=== PATIENT | male | born 1995 | race Caucasian/White ===

== ENCOUNTER 2021-06-16 17:27 | Emergency (ER) | payer OTHER, SELFPAY ==
[2021-06-16 17:36] VITALS: BP 128/67; PULSE 96; RESP 20; TEMP 36.8; O2SAT 99
[2021-06-16 20:15] VITALS: BP 113/60; PULSE 82; RESP 18; O2SAT 99
--- NOTE | 2021-06-16 20:22 | PC.NURSE ---
no response from [facility]
--- NOTE | 2021-06-16 20:55 | PC.NURSE ---
2nd call to waiting room. No answer.
== END 2021-06-17 04:42 | disposition left against medical advice (07) ==
LOC: ANHED 20:59
PROVIDERS: PCP Internal Medicine
DX: S01.21XA Laceration without foreign body of nose, initial encounter (principal)
CPT/HCPCS: 99199

== ENCOUNTER 2023-08-20 15:31 | Outpatient (CLI) | payer OTHER, MEDICAID, SELFPAY ==
[2023-08-20 16:21] LABS: Immunoglobulin G 366 mg/dL (700-1600)
== END 2023-08-20 15:32 | disposition home or self-care (01) ==
PROVIDERS: PCP Family Medicine
DX: D80.1 Nonfamilial hypogammaglobulinemia (principal); D47.Z1 Post-transplant lymphoproliferative disorder (PTLD); T86.49 Other complications of liver transplant
CPT/HCPCS: 36415; 82784

== ENCOUNTER 2023-09-10 10:48 | Outpatient (CLI) | payer OTHER, MEDICAID, SELFPAY ==
[2023-09-14 02:29] LABS: CMV DNA Quant PCR IU/mL Not Detected; Cytomegalovirus DNA Quant PCR Not Detected log IU/mL; Cytomegalovirus DNA Source Serum
== END 2023-09-10 10:49 | disposition home or self-care (01) ==
PROVIDERS: PCP Family Medicine
DX: B25.9 Cytomegaloviral disease, unspecified (principal)
CPT/HCPCS: 36415; 87497

== ENCOUNTER 2023-09-18 09:13 | Outpatient (RCR) | payer OTHER, MEDICAID, SELFPAY ==
[2023-07-17 07:52] LABS: Basophils Absolute Auto 0.1 K/mm3 (0.0-0.1); Basophils Percent Auto 0.5 % (0.2-1.2); Eosinophils Absolute Auto 0.6 K/mm3 (0-0.3); Eosinophils Percent Auto 5.9 % (0-4.4); Hematocrit 31.9 % (42.0-52.0); Hemoglobin 11.6 g/dL (14.0-18.0); Immature Granulocyte Absolute 0.03 K/mm3 (0.00-0.031); Immature Granulocyte Percent A 0.3 % (0-0.5); Lymphocytes Percent Auto 30.3 % (18.3-44.2); Mean Corpuscular HGB Conc 36.4 g/dl (32-36); Mean Corpuscular Hemoglobin 36.6 pg (26-34); Mean Corpuscular Volume 100.6 fl (80-100); Mean Platelet Volume 11.4 fl (7.4-10.4); Monocytes Absolute Auto 1.9 K/mm3 (0.1-0.6); Monocytes Percent Auto 18.4 % (2.6-8.5); Neutrophils Absolute Auto 4.6 K/mm3 (1.3-6.7); Neutrophils Percent Auto 44.6 % (45.5-73.1); Platelet Count Result 205 k/mm3 (150-375); Red Blood Count 3.17 M/mm3 (4.6-6.20); Red Cell Distribution Width 19.2 % (11.5-14.5); White Blood Count 10.2 K/mm3 (4.5-10.0)
[2023-07-17 07:55] LABS: Alanine Aminotransferase 60 U/L (6-50); Albumin Level 2.6 g/dL (3.5-5.1); Alkaline Phosphatase 223 U/L (38-126); Anion Gap 4 mmol/L (8-16); Aspartate Amino Transferase 89 U/L (17-59); Blood Urea Nitrogen 10 mg/dL (9-20); Carbon Dioxide 22 mmol/L (22-30); Chloride 113 mmol/L (98-107); Estimated Glomerular Filt Rate > 60; Glucose 97 mg/dL (65-110); Potassium 3.9 mmol/L (3.4-5.0); Sodium 139 mmol/L (137-145)
[2023-07-21 00:57] LABS: CMV DNA Quant PCR IU/mL 2499 IU/mL; Cytomegalovirus DNA Source Serum
[2023-07-21 15:03] LABS: GGT 41 U/L (3-90)
[2023-07-21 15:35] LABS: Tacrolimus Prograf 4.3 mcg/L
[2023-09-18 10:25] LABS: Basophils Absolute Auto 0.1 K/mm3 (0.0-0.1); Basophils Percent Auto 1.3 % (0.2-1.2); Eosinophils Absolute Auto 0.1 K/mm3 (0-0.3); Eosinophils Percent Auto 0.6 % (0-4.4); Hematocrit 36.9 % (42.0-52.0); Hemoglobin 13.2 g/dL (14.0-18.0); Immature Granulocyte Absolute 0.03 K/mm3 (0.00-0.031); Immature Granulocyte Percent A 0.4 % (0-0.5); Lymphocytes Absolute Auto 3.16 K/mm3 (0.9-3.2); Lymphocytes Percent Auto 40.5 % (18.3-44.2); Mean Corpuscular HGB Conc 35.8 g/dl (32-36); Mean Corpuscular Hemoglobin 39.6 pg (26-34); Mean Corpuscular Volume 110.8 fl (80-100); Mean Platelet Volume 11.2 fl (7.4-10.4); Monocytes Absolute Auto 0.8 K/mm3 (0.1-0.6); Monocytes Percent Auto 10.6 % (2.6-8.5); Neutrophils Absolute Auto 3.6 K/mm3 (1.3-6.7); Neutrophils Percent Auto 46.6 % (45.5-73.1); Platelet Count Result 296 k/mm3 (150-375); Red Blood Count 3.33 M/mm3 (4.6-6.20); Red Cell Distribution Width 19.6 % (11.5-14.5); White Blood Count 7.8 K/mm3 (4.5-10.0)
[2023-09-18 10:34] LABS: Alanine Aminotransferase 98 U/L (6-50); Albumin Level 3.4 g/dL (3.5-5.1); Alkaline Phosphatase 164 U/L (38-126); Anion Gap 9 mmol/L (8-16); Aspartate Amino Transferase 121 U/L (17-59); Bilirubin,Total 3.6 mg/dL (0.2-1.3); Blood Urea Nitrogen 23 mg/dL (9-20); Calcium 8.5 mg/dL (8.4-10.2); Carbon Dioxide 19 mmol/L (22-30); Chloride 112 mmol/L (98-107); Estimated Glomerular Filt Rate > 60; Glucose 96 mg/dL (65-110); Potassium 4.8 mmol/L (3.4-5.0); Sodium 140 mmol/L (137-145)
[2023-09-18 10:45] LABS: Anisocytosis 1+ (NORMAL); Platelet Estimate Adequate (Adequate)
[2023-09-18 10:46] LABS: Macrocytosis 1+ (NORMAL); Schistocytes None Seen (NORMAL)
[2023-09-21 15:01] LABS: Tacrolimus Prograf 11.5 mcg/L
[2023-09-22 16:11] LABS: GGT 71 U/L (3-90)
== END 2023-10-15 23:59 | disposition home or self-care (01) ==
LOC: ANHLAB 09:13
PROVIDERS: Internal Medicine; PCP Family Medicine; Visit Provider Internal Medicine Gastroenterology
DX: R74.01 Elevation of levels of liver transaminase levels (principal); Z94.4 Liver transplant status; B25.9 Cytomegaloviral disease, unspecified
CPT/HCPCS: 36415; 80053; 80197; 82977; 85025; 87497

== ENCOUNTER 2023-09-18 09:14 | Outpatient (CLI) | payer OTHER, MEDICAID, SELFPAY ==
[2023-09-21 07:36] LABS: CMV DNA Quant PCR IU/mL Not Detected; Cytomegalovirus DNA Quant PCR Not Detected log IU/mL; Cytomegalovirus DNA Source Serum
== END 2023-09-18 09:15 | disposition home or self-care (01) ==
PROVIDERS: PCP Family Medicine; Visit Provider Internal Medicine
DX: B25.9 Cytomegaloviral disease, unspecified (principal)
CPT/HCPCS: 36415; 80053; 80197; 82977; 85025; 87497

== ENCOUNTER 2023-09-28 09:11 | Emergency (ER) | payer OTHER, MEDICAID, SELFPAY ==
--- NOTE | ~2023-09-28 | XR_ITS ---
XR chest 2V 09/28/2023 09:36 Indication: Cough. Back pain. Chest pain. Procedure: 2 view chest Comparison: 07/15/2016 Findings: Cardiomegaly. Bibasilar airspace disease, compatible with pneumonia. Small right pleural ef fusion. No pneumothorax. No acute osseous abnormality. There are surgical changes of the upper abdome n. Impression: 1: Bibasilar airspace disease, consistent with pneumonia. 2: Small right pleural effusion. 3: Cardiomegaly. Reviewed, dictated and finalized at location [facility] Impression: 1: Bibasilar airspace disease, consistent with pneumonia. 2: Small right pleural effusion. 3: Cardiomegaly.
[2023-09-28 09:18] VITALS: BP 125/67; PULSE 113; RESP 20; TEMP 37.6; O2SAT 97
[2023-09-28 10:08] LABS: Influenza A QL RT-PCR Negative (Negative); Influenza B QL RT-PCR Negative (Negative); RSV RNA, RT-PCR Negative (Negative); SARS-CoV-2 RNA PCR Negative (Negative)
[2023-09-28 11:38] VITALS: BP 124/76; PULSE 102; RESP 16; TEMP 37; O2SAT 98
--- NOTE | 2023-09-28 12:12 | ED.GENADULT ---
HPI - General Adult General Chief complaint: Upper Respiratory Infection Stated complaint: low back pain/side pain Time Seen by Provider: 09/28/23 11:23 History of Present Illness HPI narrative: 28-year-old male presents to the emergency department for evaluation of a increased cough since Wednesday. Patient does have a history of a splenectomy and a liver transplant and follows up with [facility]. Related Data Home Medications Medication Instructions Recorded Confirmed tacrolimus 0.5 mg capsule, 0.5 mg PO DAILY 05/31/20 04/13/23 immediate-release valacyclovir 500 mg tablet 1,000 mg PO Q12H 04/09/23 04/13/23 IgG 30 gram/300 mL (10 subcut MONTHLY 04/13/23 04/13/23 %)-hyaluronidase,recomb. subcutaneous solution (HyQvia) ursodiol 300 mg capsule 600 mg PO DAILY 04/13/23 04/13/23 Allergies Allergy/AdvReac Type Severity Reaction Status Date / Time No Known Allergies Allergy Verified 09/28/23 11:43 Review of Systems Review of Systems: All systems reviewed & are unremarkable except as noted in HPI and below PMFSH Family History Family History Mother Carcinoma of colon Social History Social History Smoking packs per day: 0.2 Smoking cigarettes per day: 4.0 Years smoked: 2 Smoking pack-years: 0.40 Smoking status: Former smoker Tobacco type: cigarettes Smoking end date: 11/01/10 Alcohol intake: current Drinks per week: 3 Alcohol use details: social Substance use: never Substance use type: does not use Gender identity (if verbalized by the patient): Male Exam Narrative: APPEARANCE: Well appearing, no pain, no distress, well-nourished. HEAD: normocephalic, atraumatic. EYES: PERRLA/EOMI, conjunctivae clear. NOSE: Normal no drainage EARS:TMS clear with good light reflex. THROAT: Pharynx clear, no exudate. NECK: Supple. No adenopathy, no masses. RESPIRATORY: Airway patent, respirations nonlabored. Clear to auscultation bilaterally, no rales, rhonchi, wheezing. CARDIOVASCULAR: Regular rate and rhythm without murmurs rubs or gallops. ABDOMINAL: Soft, nontender, nondistended, normal bowel sounds MUSCULOSKELETAL: Moves all extremities. Strength/ROM intact, No edema, No calf tenderness. NEURO: Alert. Cranial nerves II through XII intact. grossly intact SKIN: Warm, dry. Normal Color Course Course Emergency Course: 28-year-old male presenting emergency department for evaluation of 2 days of cough. X-ray was concerning for pneumonia. Patient was negative for influenza RSV and COVID. Patient's vital signs were well-appearing patient was in no distress. Patient was started on antibiotics in the ED discharged home on antibiotics. All questions and concerns were addressed and patient was educated on reasons to return to the emergency department. Vital Signs Vital signs: Vital Signs Temperature 99.6 F 09/28/23 09:18 Pulse Rate 113 H 09/28/23 09:18 Respiratory Rate 20 09/28/23 09:18 Blood Pressure 125/67 09/28/23 09:18 Pulse Oximetry 97 09/28/23 09:18 Oxygen Delivery Room Air 09/28/23 09:18 Temperature 98.6 F 09/28/23 11:38 Pulse Rate 102 H 09/28/23 11:38 Respiratory Rate 16 09/28/23 11:38 Blood Pressure 124/76 09/28/23 11:38 Pulse Oximetry 98 09/28/23 11:38 Oxygen Delivery Room Air 09/28/23 09:18 Medical Decision Making Differential Diagnosis Differential Diagnosis: Pneumonia, influenza, COVID, pneumothorax Vital Signs Vital Signs: Vital Signs Temperature 99.6 F 09/28/23 09:18 Pulse Rate 113 H 09/28/23 09:18 Respiratory Rate 20 09/28/23 09:18 Blood Pressure 125/67 09/28/23 09:18 Pulse Oximetry 97 09/28/23 09:18 Oxygen Delivery Room Air 09/28/23 09:18 Temperature 98.6 F 09/28/23 11:38 Pulse Rate 102 H 09/28/23 11:38 Respiratory Rate 16 09/28/23 11:38 Blood Pressure 124/76 09/28/23 11:3
[2023-09-28] MEDS: AMOXICILLIN/CLAVULANATE K 875-125 MG TAB 1 TABLET PO (12:20)
[2023-09-28] MEDS: DOXYCYCLINE HYCLATE 100 MG TABLET PO (12:20)
== END 2023-09-28 12:32 | disposition home or self-care (01) ==
PROVIDERS: Emergency Provider Emergency Medicine; PCP Family Medicine
DX: J18.9 Pneumonia, unspecified organism (principal); Z20.822 Contact with and (suspected) exposure to COVID-19
CPT/HCPCS: 71046; 87637; 99283; A9270

== ENCOUNTER 2023-10-02 07:20 | Outpatient (CLI) | payer OTHER, MEDICAID, SELFPAY ==
[2023-10-02 07:46] LABS: Hematocrit 32.8 % (42.0-52.0); Hemoglobin 12.5 g/dL (14.0-18.0); Mean Corpuscular Hemoglobin 39.3 pg (26-34); Mean Corpuscular Volume 103.1 fl (80-100); Mean Platelet Volume 9.9 fl (7.4-10.4); Platelet Count Result 218 k/mm3 (150-375); Red Blood Count 3.18 M/mm3 (4.6-6.20); White Blood Count 19.7 K/mm3 (4.5-10.0)
[2023-10-02 07:50] LABS: Mean Corpuscular HGB Conc 38.1 g/dl (32-36)
[2023-10-02 07:55] LABS: Alanine Aminotransferase 34 U/L (6-50); Albumin Level 2.9 g/dL (3.5-5.1); Alkaline Phosphatase 166 U/L (38-126); Anion Gap 11 mmol/L (8-16); Aspartate Amino Transferase 39 U/L (17-59); Bilirubin,Total 5.4 mg/dL (0.2-1.3); Blood Urea Nitrogen 25 mg/dL (9-20); Calcium 8.4 mg/dL (8.4-10.2); Carbon Dioxide 17 mmol/L (22-30); Chloride 105 mmol/L (98-107); Estimated Glomerular Filt Rate > 60; Glucose 107 mg/dL (65-110); Potassium 4.3 mmol/L (3.4-5.0); Sodium 133 mmol/L (137-145)
[2023-10-05 15:12] LABS: Tacrolimus Prograf 7.6 mcg/L
[2023-10-06 07:06] LABS: GGT 49 U/L (3-90)
[2023-10-08 09:40] LABS: CMV DNA Quant PCR IU/mL <2.30
[2023-10-08 09:41] LABS: Cytomegalovirus DNA Quant PCR <200
[2023-10-08 09:43] LABS: Cytomegalovirus DNA Source Serum
== END 2023-10-02 07:21 | disposition home or self-care (01) ==
PROVIDERS: PCP Family Medicine; Visit Provider Internal Medicine Gastroenterology
DX: Z94.4 Liver transplant status (principal); B25.9 Cytomegaloviral disease, unspecified
CPT/HCPCS: 36415; 80053; 80197; 82977; 85027; 87497

== ENCOUNTER 2023-10-21 07:43 | Outpatient (RCR) | payer OTHER, MEDICAID, SELFPAY ==
[2023-07-31 08:03] LABS: Hematocrit 32.9 % (42.0-52.0); Hemoglobin 11.7 g/dL (14.0-18.0); Mean Corpuscular HGB Conc 35.6 g/dl (32-36); Mean Corpuscular Hemoglobin 36.8 pg (26-34); Mean Corpuscular Volume 103.5 fl (80-100); Mean Platelet Volume 11.3 fl (7.4-10.4); Platelet Count Result 223 k/mm3 (150-375); Red Blood Count 3.18 M/mm3 (4.6-6.20); Red Cell Distribution Width 20.7 % (11.5-14.5)
[2023-07-31 08:26] LABS: Alanine Aminotransferase 76 U/L (6-50); Albumin Level 2.9 g/dL (3.5-5.1); Alkaline Phosphatase 220 U/L (38-126); Anion Gap 4 mmol/L (8-16); Aspartate Amino Transferase 111 U/L (17-59); Bilirubin,Total 4.3 mg/dL (0.2-1.3); Blood Urea Nitrogen 9 mg/dL (9-20); Calcium 7.7 mg/dL (8.4-10.2); Carbon Dioxide 22 mmol/L (22-30); Chloride 109 mmol/L (98-107); Estimated Glomerular Filt Rate > 60; Glucose 93 mg/dL (65-110); Potassium 3.8 mmol/L (3.4-5.0); Sodium 135 mmol/L (137-145)
[2023-08-03 16:09] LABS: Tacrolimus Prograf 3.4 mcg/L
[2023-08-04 14:40] LABS: GGT 55 U/L (3-90)
[2023-10-21 08:29] LABS: Basophils Absolute Auto 0.1 K/mm3 (0.0-0.1); Basophils Percent Auto 1.7 % (0.2-1.2); Eosinophils Percent Auto 0.6 % (0-4.4); Hematocrit 27.3 % (42.0-52.0); Hemoglobin 9.4 g/dL (14.0-18.0); Immature Granulocyte Absolute 0.04 K/mm3 (0.00-0.031); Immature Granulocyte Percent A 0.7 % (0-0.5); Lymphocytes Absolute Auto 2.19 K/mm3 (0.9-3.2); Lymphocytes Percent Auto 40.6 % (18.3-44.2); Mean Corpuscular HGB Conc 34.4 g/dl (32-36); Mean Corpuscular Hemoglobin 38.7 pg (26-34); Mean Corpuscular Volume 112.3 fl (80-100); Mean Platelet Volume 10.3 fl (7.4-10.4); Monocytes Absolute Auto 1.5 K/mm3 (0.1-0.6); Neutrophils Absolute Auto 1.6 K/mm3 (1.3-6.7); Neutrophils Percent Auto 29.4 % (45.5-73.1); Platelet Count Result 249 k/mm3 (150-375); Red Blood Count 2.43 M/mm3 (4.6-6.20); White Blood Count 5.4 K/mm3 (4.5-10.0)
[2023-10-21 08:42] LABS: Alanine Aminotransferase 43 U/L (6-50); Albumin Level 2.5 g/dL (3.5-5.1); Alkaline Phosphatase 243 U/L (38-126); Anion Gap 3 mmol/L (8-16); Aspartate Amino Transferase 62 U/L (17-59); Bilirubin,Total 2.4 mg/dL (0.2-1.3); Blood Urea Nitrogen 13 mg/dL (9-20); Calcium 7.8 mg/dL (8.4-10.2); Carbon Dioxide 23 mmol/L (22-30); Chloride 110 mmol/L (98-107); Estimated Glomerular Filt Rate > 60; Glucose 95 mg/dL (65-110); Potassium 4.2 mmol/L (3.4-5.0); Sodium 136 mmol/L (137-145)
[2023-10-21 09:52] LABS: Hypochromasia 2+ (NORMAL); Platelet Estimate Adequate (Adequate)
[2023-10-21 09:53] LABS: Anisocytosis 1+ (NORMAL); Macrocytosis 1+ (NORMAL); Schistocytes None Seen (NORMAL); Target Cells 1+ (NORMAL)
[2023-10-23 23:25] LABS: Tacrolimus Prograf 5.2 mcg/L
[2023-10-26 18:56] LABS: CMV DNA Quant PCR IU/mL 507 IU/mL; Cytomegalovirus DNA Quant PCR 2.71 log IU/mL; Cytomegalovirus DNA Source Serum
[2023-10-26 22:54] LABS: GGT 49 U/L (3-90)
== END 2023-10-29 23:59 | disposition home or self-care (01) ==
LOC: ANHLAB 07:43
PROVIDERS: PCP Family Medicine; Visit Provider Internal Medicine Gastroenterology
DX: Z51.81 Encounter for therapeutic drug level monitoring (principal); Z94.4 Liver transplant status; Z79.899 Other long term (current) drug therapy
CPT/HCPCS: 36415; 80053; 80197; 82977; 85025; 85027; 87497

== ENCOUNTER 2023-11-27 07:26 | Outpatient (CLI) | payer OTHER, MEDICAID, SELFPAY ==
[2023-11-27 07:47] LABS: Basophils Absolute Auto 0.1 K/mm3 (0.0-0.1); Eosinophils Percent Auto 0.4 % (0-4.4); Hemoglobin 12.3 g/dL (14.0-18.0); Immature Granulocyte Absolute 0.87 K/mm3 (0.00-0.031); Immature Granulocyte Percent A 7.7 % (0-0.5); Lymphocytes Absolute Auto 1.44 K/mm3 (0.9-3.2); Lymphocytes Percent Auto 12.7 % (18.3-44.2); Mean Corpuscular HGB Conc 36.2 g/dl (32-36); Mean Corpuscular Hemoglobin 38.6 pg (26-34); Mean Corpuscular Volume 106.6 fl (80-100); Mean Platelet Volume 9.8 fl (7.4-10.4); Monocytes Absolute Auto 2.4 K/mm3 (0.1-0.6); Monocytes Percent Auto 21.2 % (2.6-8.5); Neutrophils Absolute Auto 6.5 K/mm3 (1.3-6.7); Platelet Count Result 216 k/mm3 (150-375); Red Blood Count 3.19 M/mm3 (4.6-6.20); Red Cell Distribution Width 15.8 % (11.5-14.5); White Blood Count 11.3 K/mm3 (4.5-10.0)
[2023-11-27 07:57] LABS: Alanine Aminotransferase 25 U/L (6-50); Albumin Level 2.5 g/dL (3.5-5.1); Alkaline Phosphatase 168 U/L (38-126); Anion Gap 4 mmol/L (8-16); Aspartate Amino Transferase 53 U/L (17-59); Bilirubin,Total 1.9 mg/dL (0.2-1.3); Blood Urea Nitrogen 11 mg/dL (9-20); Calcium 7.6 mg/dL (8.4-10.2); Carbon Dioxide 23 mmol/L (22-30); Chloride 108 mmol/L (98-107); Estimated Glomerular Filt Rate > 60; Glucose 117 mg/dL (65-110); Potassium 3.9 mmol/L (3.4-5.0); Sodium 135 mmol/L (137-145)
[2023-11-30 16:19] LABS: CMV DNA Quant PCR IU/mL 363 IU/mL; Cytomegalovirus DNA Quant PCR 2.56 log IU/mL; Cytomegalovirus DNA Source Serum
[2023-11-30 20:29] LABS: GGT 51 U/L (3-90)
[2023-11-30 20:54] LABS: Tacrolimus Prograf 4.9 mcg/L
== END 2023-11-27 07:27 | disposition home or self-care (01) ==
LOC: ANHLAB 07:30
PROVIDERS: PCP Family Medicine; Visit Provider Internal Medicine Gastroenterology
DX: R74.01 Elevation of levels of liver transaminase levels (principal); B25.8 Other cytomegaloviral diseases; Z94.4 Liver transplant status
CPT/HCPCS: 36415; 80053; 80197; 82977; 85025; 87497

== ENCOUNTER 2024-01-01 07:22 | Outpatient (CLI) | payer OTHER, SELFPAY ==
[2024-01-01 08:17] LABS: Basophils Absolute Auto 0.1 K/mm3 (0.0-0.1); Basophils Percent Auto 2.2 % (0.2-1.2); Eosinophils Percent Auto 0.6 % (0-4.4); Hematocrit 38.5 % (42.0-52.0); Hemoglobin 13.6 g/dL (14.0-18.0); Immature Granulocyte Absolute 0.36 K/mm3 (0.00-0.031); Immature Granulocyte Percent A 7.2 % (0-0.5); Lymphocytes Absolute Auto 1.44 K/mm3 (0.9-3.2); Lymphocytes Percent Auto 28.8 % (18.3-44.2); Mean Corpuscular HGB Conc 35.3 g/dl (32-36); Mean Corpuscular Hemoglobin 37.9 pg (26-34); Mean Corpuscular Volume 107.2 fl (80-100); Mean Platelet Volume 10.4 fl (7.4-10.4); Monocytes Absolute Auto 0.7 K/mm3 (0.1-0.6); Monocytes Percent Auto 14.2 % (2.6-8.5); Neutrophils Absolute Auto 2.4 K/mm3 (1.3-6.7); Platelet Count Result 244 k/mm3 (150-375); Red Blood Count 3.59 M/mm3 (4.6-6.20); Red Cell Distribution Width 14.8 % (11.5-14.5)
[2024-01-01 08:31] LABS: Alanine Aminotransferase 36 U/L (6-50); Albumin Level 3.2 g/dL (3.5-5.1); Alkaline Phosphatase 197 U/L (38-126); Anion Gap 8 mmol/L (8-16); Aspartate Amino Transferase 59 U/L (17-59); Bilirubin,Total 1.3 mg/dL (0.2-1.3); Blood Urea Nitrogen 20 mg/dL (9-20); Calcium 8.7 mg/dL (8.4-10.2); Carbon Dioxide 21 mmol/L (22-30); Chloride 109 mmol/L (98-107); Estimated Glomerular Filt Rate > 60; Glucose 120 mg/dL (65-110); Potassium 4.7 mmol/L (3.4-5.0); Sodium 138 mmol/L (137-145)
[2024-01-03 20:34] LABS: CMV DNA Quant PCR IU/mL Not Detected; Cytomegalovirus DNA Quant PCR Not Detected log IU/mL; Cytomegalovirus DNA Source Plasma
[2024-01-04 04:40] LABS: Tacrolimus Prograf 6.2 mcg/L
[2024-01-05 13:19] LABS: GGT 50 U/L (3-90)
== END 2024-01-01 07:23 | disposition home or self-care (01) ==
PROVIDERS: PCP Family Medicine; Visit Provider Internal Medicine Gastroenterology
DX: R74.01 Elevation of levels of liver transaminase levels (principal); B25.8 Other cytomegaloviral diseases; Z94.4 Liver transplant status
CPT/HCPCS: 36415; 80053; 80197; 82977; 85025; 87497

== ENCOUNTER 2024-09-09 07:30 | Outpatient (CLI) | payer OTHER, SELFPAY ==
[2024-09-09 08:13] LABS: Anion Gap 6 mmol/L (4-12); Blood Urea Nitrogen 16 mg/dL (9-20); Calcium 8.7 mg/dL (8.4-10.2); Carbon Dioxide 27 mmol/L (22-30); Chloride 105 mmol/L (98-107); Estimated Glomerular Filt Rate > 60; Glucose 103 mg/dL (65-110); Potassium 4.4 mmol/L (3.4-5.0); Sodium 138 mmol/L (137-145)
== END 2024-09-09 07:31 | disposition home or self-care (01) ==
LOC: ANHLAB 07:36
PROVIDERS: PCP Nurse Practitioner; Visit Provider Internal Medicine Gastroenterology
DX: Z94.4 Liver transplant status (principal)
CPT/HCPCS: 36415; 80048

== ENCOUNTER 2024-10-21 08:11 | Outpatient (CLI) | payer OTHER, SELFPAY ==
--- OUTSIDE RECORDS SUMMARY | 2024-10-28 05:55 | XMS_ITS | Patient Health Summary ---
Author Organization [facility] Address [address] [place] [address] Care Team Providers Care Egg Processor Name Role Phone Vilma Spangler MD Primary Care Provider [phone] Note from [facility],non-owned Affiliates and Associated Physician Practices is amultiple site organization consisting of ambulatory clinics and hospital sitesin [place], [place], [place] and [place]. This disclosure is being madepursuant to the Care Everywhere program and may not contain all information available regarding this patient. Last updated 18.[facility] Allergies No known active allergies Medications * Be aware that medications may not be up to date on this document. Alwaysverify current medications with the patient. * acetaminophen (TYLENOL) 325 MG tablet Take 325 mg by mouth every 4 hours as needed. Maximum allowable Acetaminophen amount = 4 Grams (4000 mg) / 24 hours. * tacrolimus (PROGRAF) 0.5 MG capsule(Started 07/18/2013) Take 1 Cap by mouth 2 times daily. 5 refills left * sulfamethoxazole-trimethoprim (BACTRIM DS; SEPTRA DS) 800-160 MG tablet (Started 07/24/2013) Take 1 Tab by mouth once daily. 5 refills left * predniSONE (DELTASONE) 20 MG tablet(Started 08/08/2013) Take 10 mg by mouth once daily. 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 0 02/17/2010 Immunizations * MENINGOCOCCAL CONJUGATE (MCV4P)(Given 11/11/2012) * PNEUMOCOCCAL PPSV23(Given 11/11/2012) Social History Tobacco Use Types Packs/Day Years Used Date Smoking Tobacco: Never Smokeless Tobacco: Never Alcohol Use Standard Drinks/Week Comments No 0 (1 standard drink = 0.6 oz pur e alcohol) Sex and Gender Information Value Date Recorded Sex Assigned at Not on file Gender Identity Not on file Sexual Orientation Not on file Last Filed Vital Signs Vital Sign Reading Time Taken Comments Blood Pressure 109/46 01/21/2014 10:56 PM CDT Pulse 80 01/21/2014 10:49 PM CDT Temperature 36.9 ??C (98.4 ??F) 01/21/2014 7:52 PM CD T Respiratory Rate 16 01/21/2014 7:52 PM CDT Oxygen Saturation 96% 01/21/2014 10:49 PM CDT Inhaled Oxygen Concentration 100% 12/24/2012 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 Weight 56.7 kg (125 lb) 01/21/2014 7:52 PM CDT Height 170.2 cm (5' 7 ) 01/21/2014 7:52 PM CDT Body Mass Index 19.58 01/21/2014 7:52 PM CDT Procedures * TACROLIMUS LEVEL(Performed 07/28/2014) * CBC W AUTO DIFFERENTIAL(Performed 07/28/2014) * HEPATIC FUNCTION PANEL(Performed 07/28/2014) * BASIC METABOLIC PANEL (CALCIUM TOTAL)(Performed 07/28/2014) * MAGNESIUM BLOOD(Performed 07/28/2014) * TACROLIMUS LEVEL(Performed 06/30/2014) * HEPATIC FUNCTION PANEL(Performed 06/30/2014) * BASIC METABOLIC PANEL (CALCIUM TOTAL)(Performed 06/30/2014) * MAGNESIUM BLOOD(Performed 06/30/2014) * CBC W AUTO DIFFERENTIAL(Performed 06/30/2014) * TACROLIMUS LEVEL(Performed 02/17/2014) * CBC W AUTO DIFFERENTIAL(Performed 02/17/2014) * HEPATIC FUNCTION PANEL(Performed 02/17/2014) * BASIC METABOLIC PANEL (CALCIUM TOTAL)(Performed 02/17/2014) * CYTOMEGALOVIRUS DNA RT-PCR QUANT(Performed 02/17/2014) * CYTOMEGALOVIRUS DNA RT-PCR QUANT(Performed 02/03/2014) * TACROLIMUS LEVEL(Performed 02/03/2014) * XR CHEST 2VW(Performed 01/21/2014) * PT-INR SLH(Performed 01/21/2014) * CULTURE BLOOD(Performed 01/21/2014) * TYPE + SCREEN PANEL(Performed 01/21/2014) * TACROLIMUS LEVEL(Performed 01/21/2014) * CBC W AUTO DIFFERENTIAL(Performed 01/21/2014) * COMPREHENSIVE METABOLIC PANEL(Performed 01/21/2014) * CULTURE BLOOD(Performed 01/21/2014) * CBC W AUTO DIFFERENTIAL(Performed 01/20/2014) * HEPATIC FUNCTION PANEL(Performed 01/20/2014) * BASIC METABOLIC PANEL (CALCIUM TOTAL)(Performed 01/20/2014) * MAGNESIUM BLOOD(Performed 01/20/2014) * HEPATIC FUNCTION PANEL(Performed 01/20/2014) * BASIC METABOLIC PANEL (CALCIUM TOTAL)(Performed 01/20/2014) * MAGNESIUM BLOOD(Performed 01/20/2014) * CYTOMEGALOVIRUS DNA RT-PCR QUANT(Performed 01/20/2014) * CYTOMEGALOVIRUS DNA RT-PCR QUANT(Performed 01/13/2014) * TACROLIMUS LEVEL(Performed 01/13/2014) * CBC W AUTO DIFFERENTIAL(Performed 01/13/2014) * HEPATIC FUNCTION PANEL(Performed 01/13/2014) * BASIC METABOLIC PANEL (CALCIUM TOTAL)(Performed 01/13/2014) * MAGNESIUM BLOOD(Performed 01/13/2014) * MAGNESIUM BLOOD(Performed 01/04/2014) * BASIC METABOLIC PANEL (CALCIUM TOTAL)(Performed 01/04/2014) * HEPATIC FUNCTION PANEL(Performed 01/04/2014) * CBC W AUTO DIFFERENTIAL(Performed 01/04/2014) * NM LIVER SPECT(Performed 01/04/2014) * TACROLIMUS LEVEL(Performed 12/30/2013) * MAGNESIUM BLOOD(Performed 12/30/2013) * HEPATIC FUNCTION PANEL(Performed 12/30/2013) * BASIC METABOLIC PANEL (CALCIUM TOTAL)(Performed 12/30/2013) * CBC W AUTO DIFFERENTIAL(Performed 12/30/2013) * IGG BLOOD(Performed 12/30/2013) * COMPREHENSIVE METABOLIC PANEL(Performed 12/30/2013) * CBC W AUTO DIFFERENTIAL(Performed 12/30/2013) * CBC W AUTO DIFFERENTIAL(Performed 12/30/2013) * CBC W AUTO DIFFERENTIAL(Performed 12/30/2013) * CBC W AUTO DIFFERENTIAL(Performed 12/30/2013) * CBC W AUTO DIFFERENTIAL(Performed 12/30/2013) * CYTOMEGALOVIRUS DNA RT-PCR QUANT(Performed 12/30/2013) * NADINE-BORREGO VIRUS PCR QUANT BLOOD/CSF(Performed 12/30/2013) * LAB RESULTS ORDER(Performed 12/26/2013) * CBC W/O DIFFERENTIAL(Performed 12/24/2013) * CBC W AUTO DIFFERENTIAL(Performed 12/23/2013) * BASIC METABOLIC PANEL (CALCIUM TOTAL)(Performed 12/23/2013) * MAGNESIUM BLOOD(Performed 12/23/2013) * PHOSPHORUS BLOOD(Performed 12/23/2013) * CBC W AUTO DIFFERENTIAL(Performed 12/22/2013) * PHOSPHORUS BLOOD(Performed 12/22/2013) * MAGNESIUM BLOOD(Performed 12/22/2013) * BASIC METABOLIC PANEL (CALCIUM TOTAL)(Performed 12/22/2013) * NADINE-BORREGO VIRUS PCR QUANT BLOOD/CSF(Performed 12/22/2013) * CYTOMEGALOVIRUS DNA RT-PCR QUANT(Performed 12/22/2013) * TACROLIMUS LEVEL(Performed 12/22/2013) * CBC W AUTO DIFFERENTIAL(Performed 12/22/2013) * PT-INR SLH(Performed 12/22/2013) * PTT SLH(Performed 12/22/2013) * PHOSPHORUS BLOOD(Performed 12/22/2013) * MAGNESIUM BLOOD(Performed 12/22/2013) * HEPATIC FUNCTION PANEL(Performed 12/22/2013) * BASIC METABOLIC PANEL (CALCIUM TOTAL)(Performed 12/22/2013) * URINALYSIS W/MICROSCOPIC NO CULTURE(Performed 12/22/2013) * TACROLIMUS LEVEL(Performed 12/13/2013) * TACROLIMUS LEVEL(Performed 12/02/2013) * HEPATIC FUNCTION PANEL(Performed 12/02/2013) * BASIC METABOLIC PANEL (CALCIUM TOTAL)(Performed 12/02/2013) * CBC W AUTO DIFFERENTIAL(Performed 12/02/2013) * PT-INR SLH(Performed 12/02/2013) * US ABDOMEN DOPPLER ONLY LTD(Performed 11/29/2013) * US ABDOMEN LIMITED(Performed 11/29/2013) * CAROL DIRECT(Performed 10/03/2013) * HEPATIC FUNCTION PANEL(Performed 10/03/2013) Performed for ITP (idiopathic thrombocytopenic purpura) * NADINE-BORREGO VIRUS PCR QUANTITATIVE WHOLE BLOOD(Performed 10/03/2013) Performed for ITP (idiopathic thrombocytopenic purpura) * CBC W AUTO DIFFERENTIAL(Performed 10/03/2013) Performed for Hypogammaglobulinemia (HCC) * LAB RESULTS ORDER(Performed 09/29/2013) * NADINE-BORREGO VIRUS PCR QUANTITATIVE WHOLE BLOOD(Performed 08/15/2013) Performed for ITP (idiopathic thrombocytopenic purpura) * COMPREHENSIVE METABOLIC PANEL(Performed 08/15/2013) Performed for ITP (idiopathic thrombocytopenic purpura) * CBC W AUTO DIFFERENTIAL(Performed 08/15/2013) Performed for ITP (idiopathic thrombocytopenic purpura) * LAB RESULTS ORDER(Performed 08/09/2013) * CAROL DIRECT(Performed 07/21/2013) * IGG BLOOD(Performed 07/21/2013) Performed for ITP (idiopathic thrombocytopenic purpura) * COMPREHENSIVE METABOLIC PANEL(Performed 07/21/2013) Performed for ITP (idiopathic thrombocytopenic purpura) * CBC W AUTO DIFFERENTIAL(Performed 07/21/2013) Performed for ITP (idiopathic thrombocytopenic purpura) * LAB RESULTS ORDER(Performed 07/18/2013) * STREP A SCREEN DIRECT W RFLX STREP A CULTURE(Performed 07/06/2013) * CULTURE STREP GROUP A(Performed 07/06/2013) * CAROL DIRECT(Performed 07/06/2013) * FLOW CYTOMETRY NEUTROPHIL ASSOCIATED AB(Performed 07/06/2013) Performed for ITP (idiopathic thrombocytopenic purpura) * POTASSIUM BLOOD(Performed 07/06/2013) Performed for ITP (idiopathic thrombocytopenic purpura) * IGG BLOOD(Performed 07/06/2013) Performed for ITP (idiopathic thrombocytopenic purpura) * COMPREHENSIVE METABOLIC PANEL(Performed 07/06/2013) Performed for ITP (idiopathic thrombocytopenic purpura) * CBC W AUTO DIFFERENTIAL(Performed 07/06/2013) Performed for ITP (idiopathic thrombocytopenic purpura) * DIFFERENTIAL MANUAL(Performed 07/06/2013) Performed for ITP (idiopathic thrombocytopenic purpura) * NADINE-BORREGO VIRUS PCR QUANTITATIVE WHOLE BLOOD(Performed 07/06/2013) Performed for ITP (idiopathic thrombocytopenic purpura), Hypogammaglobulinemia (HCC), Neutropenia associated with autoimmune disease (HCC), Cellulitis and abscess of face, Lymphadenopathy, History ofliver transplant (HCC), Autoimmune hepatitis s/p liver transplant * IGG BLOOD(Performed 06/13/2013) Performed for Hypogammaglobulinemia (HCC), ITP (idiopathic thrombocytopenic purpura) * NADINE-BORREGO VIRUS PCR QUANT BLOOD/CSF(Performed 06/13/2013) Performed for Hypogammaglobulinemia (HCC), ITP (idiopathic thrombocytopenic purpura) * CBC W AUTO DIFFERENTIAL(Performed 06/13/2013) Performed for Hypogammaglobulinemia (HCC), ITP (idiopathic thrombocytopenic purpura) * DIFFERENTIAL MANUAL(Performed 06/13/2013) Performed for Hypogammaglobulinemia (HCC), ITP (idiopathic thrombocytopenic purpura) * CULTURE FUNGUS SKIN HAIR NAIL+FUNGUS SMEAR(Performed 05/16/2013) * IGG BLOOD(Performed 05/16/2013) Performed for Hypogammaglobulinemia (HCC) * CBC W AUTO DIFFERENTIAL(Performed 05/16/2013) Performed for History of liver transplant (HCC) * TACROLIMUS LEVEL(Performed 05/16/2013) Performed for History of liver transplant (HCC) * COMPREHENSIVE METABOLIC PANEL(Performed 05/16/2013) Performed for History of liver transplant (HCC) * NADINE-BORREGO VIRUS PCR QUANT BLOOD/CSF(Performed 05/16/2013) Performed for History of liver transplant (HCC) * GGT(Performed 05/16/2013) Performed for History of liver transplant (HCC) * IGG BLOOD(Performed 05/01/2013) Performed for Hypogammaglobulinemia (HCC), ITP (idiopathic thrombocytopenic purpura) * CBC W AUTO DIFFERENTIAL(Performed 05/01/2013) Performed for Hypogammaglobulinemia (HCC), ITP (idiopathic thrombocytopenic purpura) * IGG BLOOD(Performed 04/03/2013) Performed for Hypogammaglobulinemia (HCC), Neutropenia associated with autoimmune disease (HCC), ITP (idiopathic thrombocytopenic purpura) * CBC W AUTO DIFFERENTIAL(Performed 04/03/2013) Performed for Hypogammaglobulinemia (HCC), Neutropenia associated with autoimmune disease (HCC), ITP (idiopathic thrombocytopenic purpura) * NADINE-BORREGO VIRUS PCR QUANT BLOOD/CSF(Performed 02/27/2013) Performed for Hypogammaglobulinemia (HCC), Autoimmune hepatitis s/p liver transplant, ITP (idiopathic thrombocytopenic purpura) * PHOSPHORUS BLOOD(Performed 02/27/2013) Performed for Hypogammaglobulinemia (HCC), Autoimmune hepatitis s/p liver transplant, ITP (idiopathic thrombocytopenic purpura) * MAGNESIUM BLOOD(Performed 02/27/2013) Performed for Hypogammaglobulinemia (HCC), Autoimmune hepatitis s/p liver transplant, ITP (idiopathic thrombocytopenic purpura) * IMMUNOGLOBULINS IGG/IGM/IGA PANEL(Performed 02/27/2013) Performed for Hypogammaglobulinemia (HCC), Autoimmune hepatitis s/p liver transplant, ITP (idiopathic thrombocytopenic purpura) * COMPREHENSIVE METABOLIC PANEL(Performed 02/27/2013) Performed for Hypogammaglobulinemia (HCC), Autoimmune hepatitis s/p liver transplant, ITP (idiopathic thrombocytopenic purpura) * CBC W AUTO DIFFERENTIAL(Performed 02/27/2013) Performed for Hypogammaglobulinemia (HCC), Autoimmune hepatitis s/p liver transplant, ITP (idiopathic thrombocytopenic purpura) * DIFFERENTIAL MANUAL(Performed 02/27/2013) Performed for Hypogammaglobulinemia (HCC), Autoimmune hepatitis s/p liver transplant, ITP (idiopathic thrombocytopenic purpura) * TACROLIMUS LEVEL(Performed 02/14/2013) Performed for Hypogammaglobulinemia (HCC) * IGG BLOOD(Performed 02/14/2013) Performed for Hypogammaglobulinemia (HCC) * COMPREHENSIVE METABOLIC PANEL(Performed 02/14/2013) Performed for Hypogammaglobulinemia (HCC) * CBC W AUTO DIFFERENTIAL(Performed 02/14/2013) Performed for Hypogammaglobulinemia (HCC) * DIFFERENTIAL MANUAL(Performed 02/14/2013) Performed for Hypogammaglobulinemia (HCC) * LIPASE BLOOD(Performed 01/17/2013) Performed for ITP (idiopathic thrombocytopenic purpura) * HEPATIC FUNCTION PANEL(Performed 01/17/2013) Performed for ITP (idiopathic thrombocytopenic purpura) * IGG BLOOD(Performed 01/17/2013) Performed for ITP (idiopathic thrombocytopenic purpura) * CBC W AUTO DIFFERENTIAL(Performed 01/17/2013) Performed for ITP (idiopathic thrombocytopenic purpura) * DIFFERENTIAL MANUAL(Performed 01/17/2013) Performed for ITP (idiopathic thrombocytopenic purpura) * LIPASE FLUID(Performed 01/02/2013) Performed for Primary thrombocytopenia, unspecified (HCC) * AMYLASE FLUID(Performed 01/02/2013) Performed for Primary thrombocytopenia, unspecified (HCC) * LIPASE BLOOD(Performed 01/02/2013) Performed for Primary thrombocytopenia, unspecified (HCC) * AMYLASE BLOOD(Performed 01/02/2013) Performed for Primary thrombocytopenia, unspecified (HCC) * TACROLIMUS LEVEL(Performed 01/02/2013) Performed for Primary thrombocytopenia, unspecified (HCC) * US ABDOMEN LIMITED(Performed 01/02/2013) Performed for Primary thrombocytopenia, unspecified (HCC) * PATHOLOGY/CYTOLOGY REPORT ORDER(Performed 12/30/2012) * AMYLASE FLUID(Performed 12/28/2012) * LIPASE FLUID(Performed 12/28/2012) * AMYLASE BLOOD(Performed 12/28/2012) * LIPASE BLOOD(Performed 12/28/2012) * LIPASE BLOOD(Performed 12/28/2012) * AMYLASE BLOOD(Performed 12/28/2012) * HEPATIC FUNCTION PANEL(Performed 12/28/2012) * LIPASE FLUID(Performed 12/28/2012) * AMYLASE FLUID(Performed 12/28/2012) * NADINE-BORREGO VIRUS PCR QUANT BLOOD/CSF(Performed 12/27/2012) * TACROLIMUS LEVEL(Performed 12/27/2012) * HEPATIC FUNCTION PANEL(Performed 12/27/2012) * CROSSMATCH RBC LEUKOREDUCED(Performed 12/27/2012) * CROSSMATCH RBC LEUKOREDUCED(Performed 12/27/2012) * US ABDOMEN LTD W COMP DOPPLER(Performed 12/26/2012) Performed for Hypogammaglobulinemia (HCC), ITP (idiopathic thrombocytopenic purpura), Neutropenia associated with autoimmune disease (HCC), Cellulitis and abscess of face, Lymphadenopathy, History ofliver transplant (HCC), Autoimmune hepatitis (HCC), Autoimmune hepatitis s/p liver transplant * CYTOMEGALOVIRUS DNA RT-PCR QUANT(Performed 12/26/2012) * HEPATIC FUNCTION PANEL(Performed 12/26/2012) * HERPES VIRUS 6 ANTIBODY IGG(Performed 12/25/2012) * HEPATIC FUNCTION PANEL(Performed 12/25/2012) * CYTOMEGALOVIRUS ANTIBODY IGG/IGM BLOOD(Performed 12/25/2012) * LIPASE BLOOD(Performed 12/25/2012) * AMYLASE BLOOD(Performed 12/25/2012) * LIPASE FLUID(Performed 12/25/2012) * AMYLASE FLUID(Performed 12/25/2012) * TACROLIMUS LEVEL(Performed 12/25/2012) * CBC W/O DIFFERENTIAL(Performed 12/25/2012) * HEPATIC FUNCTION PANEL(Performed 12/24/2012) * CULTURE BLOOD(Performed 12/24/2012) * CULTURE BLOOD(Performed 12/24/2012) * DIFFERENTIAL MANUAL(Performed 12/24/2012) * CBC W AUTO DIFFERENTIAL(Performed 12/24/2012) * GLUCOSE - POINT OF CARE(Performed 12/24/2012) * XR CHEST 1VW(Performed 12/23/2012) Performed for ITP (idiopathic thrombocytopenic purpura) * CULTURE URINE(Performed 12/23/2012) * URINALYSIS REFLEX TO MICROSCOPIC NO CULTURE(Performed 12/23/2012) * DIFFERENTIAL MANUAL(Performed 12/23/2012) * CBC W AUTO DIFFERENTIAL(Performed 12/23/2012) * PREPARE PLATELET PHERESIS UNIT(S)(Performed 12/23/2012) * PREPARE PLATELET PHERESIS UNIT(S)(Performed 12/23/2012) * PT PTT PANEL(Performed 12/23/2012) * BASIC METABOLIC PANEL (CALCIUM TOTAL)(Performed 12/23/2012) * SPLENECTOMY(Performed 12/23/2012) Performed for Primary thrombocytopenia, unspecified (HCC) * LAPAROSCOPIC SPLENECTOMY(Performed 12/23/2012) Performed for Primary thrombocytopenia, unspecified (HCC) * DIFFERENTIAL MANUAL(Performed 12/23/2012) * CBC W AUTO DIFFERENTIAL(Performed 12/23/2012) * CROSSMATCH RBC LEUKOREDUCED(Performed 12/23/2012) * CULTURE MRSA(Performed 12/23/2012) * CROSSMATCH RBC LEUKOREDUCED(Performed 12/23/2012) * CROSSMATCH RBC LEUKOREDUCED(Performed 12/23/2012) * CROSSMATCH RBC LEUKOREDUCED(Performed 12/23/2012) * BLOOD GASES NATHAN + LYTES GLUC CA+ HH (ISTAT)(Performed 12/23/2012) * PATHOLOGY TISSUE EXAM (STL)(Performed 12/23/2012) Performed for Hypogammaglobulinemia (HCC), ITP (idiopathic thrombocytopenic purpura), Neutropenia associated with autoimmune disease (HCC), Cellulitis and abscess of face, Lymphadenopathy, History ofliver transplant (HCC), Autoimmune hepatitis (HCC) * CBC W AUTO DIFFERENTIAL(Performed 12/23/2012) Performed for Hypogammaglobulinemia (HCC) * CROSSMATCH RBC LEUKOREDUCED(Performed 12/23/2012) * CROSSMATCH RBC LEUKOREDUCED(Performed 12/23/2012) * CROSSMATCH RBC LEUKOREDUCED(Performed 12/23/2012) * ANTIBODY SCREEN(Performed 12/23/2012) * BLOOD TYPE ABO+ RH PANEL(Performed 12/23/2012) * CROSSMATCH RBC LEUKOREDUCED(Performed 12/23/2012) * CBC W AUTO DIFFERENTIAL(Performed 12/22/2012) Performed for ITP (idiopathic thrombocytopenic purpura) * DIFFERENTIAL MANUAL(Performed 12/22/2012) Performed for ITP (idiopathic thrombocytopenic purpura) * COMPREHENSIVE METABOLIC PANEL(Performed 12/20/2012) Performed for ITP (idiopathic thrombocytopenic purpura) * CBC W AUTO DIFFERENTIAL(Performed 12/20/2012) Performed for ITP (idiopathic thrombocytopenic purpura) * NADINE-BORREGO VIRUS PCR QUANT BLOOD/CSF(Performed 12/20/2012) Performed for ITP (idiopathic thrombocytopenic purpura) * DIFFERENTIAL MANUAL(Performed 12/20/2012) Performed for ITP (idiopathic thrombocytopenic purpura) * LAB RESULTS ORDER(Performed 12/13/2012) * LAB RESULTS ORDER(Performed 12/09/2012) * LAB RESULTS ORDER(Performed 12/07/2012) * LAB RESULTS ORDER(Performed 12/06/2012) * DIFFERENTIAL MANUAL(Performed 11/22/2012) Performed for ITP (idiopathic thrombocytopenic purpura) * CBC W AUTO DIFFERENTIAL(Performed 11/22/2012) Performed for ITP (idiopathic thrombocytopenic purpura) * CBC W AUTO DIFFERENTIAL(Performed 11/17/2012) * DIFFERENTIAL MANUAL(Performed 11/17/2012) * CBC W AUTO DIFFERENTIAL(Performed 11/17/2012) * DIFFERENTIAL MANUAL(Performed 11/17/2012) * COMPREHENSIVE METABOLIC PANEL(Performed 11/16/2012) * CBC W AUTO DIFFERENTIAL(Performed 11/16/2012) * DIFFERENTIAL MANUAL(Performed 11/16/2012) * COMPREHENSIVE METABOLIC PANEL(Performed 11/11/2012) Performed for Hypogammaglobulinemia (HCC) * NADINE-BORREGO VIRUS PCR QUANT BLOOD/CSF(Performed 11/11/2012) Performed for Neutropenia associated with autoimmune disease (HCC) * IGG BLOOD(Performed 11/11/2012) Performed for Hypogammaglobulinemia (HCC) * CBC W AUTO DIFFERENTIAL(Performed 11/11/2012) Performed for Neutropenia associated with autoimmune disease (HCC) * DIFFERENTIAL MANUAL(Performed 11/11/2012) Performed for Neutropenia associated with autoimmune disease (HCC) * CT ABDOMEN PELVIS W CONTRAST(Performed 10/27/2012) Performed for Neutropenia associated with autoimmune disease (HCC) * DIFFERENTIAL MANUAL(Performed 10/27/2012) Performed for Neutropenia associated with autoimmune disease (HCC) * CBC W AUTO DIFFERENTIAL(Performed 10/27/2012) Performed for Neutropenia associated with autoimmune disease (HCC) * HEPATIC FUNCTION PANEL(Performed 10/18/2012) Performed for Neutropenia associated with autoimmune disease (HCC) * CBC W AUTO DIFFERENTIAL(Performed 10/18/2012) Performed for Neutropenia associated with autoimmune disease (HCC) * DIFFERENTIAL MANUAL(Performed 10/18/2012) Performed for Neutropenia associated with autoimmune disease (HCC) * NADINE-BORREGO VIRUS PCR QUANT BLOOD/CSF(Performed 10/11/2012) Performed for Neutropenia associated with autoimmune disease (HCC) * CBC W AUTO DIFFERENTIAL(Performed 10/11/2012) Performed for Neutropenia associated with autoimmune disease (HCC) * PT PTT PANEL(Performed 10/07/2012) * CBC W AUTO DIFFERENTIAL(Performed 10/07/2012) * DIFFERENTIAL MANUAL(Performed 10/07/2012) * COMPREHENSIVE METABOLIC PANEL(Performed 09/27/2012) Performed for Neutropenia associated with autoimmune disease (HCC) * CBC W AUTO DIFFERENTIAL(Performed 09/27/2012) Performed for Hypogammaglobulinemia (HCC) * NADINE-BORREGO VIRUS PCR QUANT BLOOD/CSF(Performed 09/27/2012) Performed for Hypogammaglobulinemia (HCC) * IGG BLOOD(Performed 09/27/2012) Performed for Hypogammaglobulinemia (HCC) * DIFFERENTIAL MANUAL(Performed 09/27/2012) Performed for Hypogammaglobulinemia (HCC) * DIFFERENTIAL MANUAL(Performed 09/20/2012) Performed for Autoimmune hepatitis (HCC) * COMPREHENSIVE METABOLIC PANEL(Performed 09/20/2012) Performed for Autoimmune hepatitis (HCC) * CBC W AUTO DIFFERENTIAL(Performed 09/20/2012) Performed for Autoimmune hepatitis (HCC) * LDH BLOOD(Performed 09/20/2012) Performed for Autoimmune hepatitis (HCC) * NADINE-BORREGO VIRUS PCR QUANT BLOOD/CSF(Performed 09/20/2012) Performed for Autoimmune hepatitis (HCC) * PHOSPHORUS BLOOD(Performed 09/20/2012) Performed for Autoimmune hepatitis (HCC) * MAGNESIUM BLOOD(Performed 09/20/2012) Performed for Autoimmune hepatitis (HCC) * IMMUNOGLOBULINS IGG/IGM/IGA PANEL(Performed 09/20/2012) Performed for Autoimmune hepatitis (HCC) * HEPATIC FUNCTION PANEL(Performed 08/09/2012) Performed for Neutropenia associated with autoimmune disease (HCC) * IGG BLOOD(Performed 08/09/2012) Performed for Neutropenia associated with autoimmune disease (HCC) * NADINE-BORREGO VIRUS PCR QUANT BLOOD/CSF(Performed 08/09/2012) Performed for Neutropenia associated with autoimmune disease (HCC) * CBC W AUTO DIFFERENTIAL(Performed 08/09/2012) Performed for Neutropenia associated with autoimmune disease (HCC) * DIFFERENTIAL MANUAL(Performed 08/09/2012) Performed for Neutropenia associated with autoimmune disease (HCC) * IGG BLOOD(Performed 06/28/2012) Performed for Neutropenia associated with autoimmune disease (HCC) * COMPREHENSIVE METABOLIC PANEL(Performed 06/28/2012) Performed for Neutropenia associated with autoimmune disease (HCC) * CBC W AUTO DIFFERENTIAL(Performed 06/28/2012) Performed for Neutropenia associated with autoimmune disease (HCC) * DIFFERENTIAL MANUAL(Performed 06/28/2012) Performed for Neutropenia associated with autoimmune disease (HCC) * IGG BLOOD(Performed 05/18/2012) Performed for Hypogammaglobulinemia (HCC) * NADINE-BORREGO VIRUS PCR QUANT BLOOD/CSF(Performed 05/18/2012) Performed for Hypogammaglobulinemia (HCC) * CBC W AUTO DIFFERENTIAL(Performed 05/18/2012) Performed for Hypogammaglobulinemia (HCC) * DIFFERENTIAL MANUAL(Performed 05/18/2012) Performed for Hypogammaglobulinemia (HCC) * IGG BLOOD(Performed 04/20/2012) Performed for Hypogammaglobulinemia (HCC) * TACROLIMUS LEVEL(Performed 04/20/2012) Performed for Liver replaced by transplant (HCC) * GGT(Performed 04/20/2012) Performed for Liver replaced by transplant (HCC) * HEPATIC FUNCTION PANEL(Performed 04/20/2012) Performed for Liver replaced by transplant (HCC) * MAGNESIUM BLOOD(Performed 04/20/2012) Performed for Liver replaced by transplant (HCC) * GLUCOSE(Performed 04/20/2012) Performed for Liver replaced by transplant (HCC) * CREATININE BLOOD(Performed 04/20/2012) Performed for Liver replaced by transplant (HCC) * BUN(Performed 04/20/2012) Performed for Liver replaced by transplant (HCC) * LYTES (NA K CL CO2) BLOOD(Performed 04/20/2012) Performed for Liver replaced by transplant (HCC) * CBC W AUTO DIFFERENTIAL(Performed 04/20/2012) Performed for Liver replaced by transplant (HCC) * DIFFERENTIAL MANUAL(Performed 04/20/2012) Performed for Liver replaced by transplant (HCC) * NADINE-BORREGO VIRUS PCR QUANT BLOOD/CSF(Performed 04/20/2012) Performed for Liver replaced by transplant (HCC) * IMAGING/RADIOLOGY/XRAY RESULTS ORDER(Performed 04/11/2012) * BASIC METABOLIC PANEL (CALCIUM TOTAL)(Performed 04/05/2012) Performed for Lymphadenopathy * ANGIOTENSIN CONVERTING ENZYME BLOOD(Performed 04/05/2012) Performed for Lymphadenopathy * PATHOLOGY/CYTOLOGY REPORT ORDER(Performed 03/30/2012) * GROSS + MICRO EXAM(Performed 03/24/2012) * CULTURE FUNGUS OTHER(Performed 03/24/2012) * CULTURE AFB+SMEAR(Performed 03/24/2012) * CULTURE ANAEROBE(Performed 03/24/2012) * CULTURE WOUND(Performed 03/24/2012) * CHROMOSOME ANALYSIS TISSUE PANEL(Performed 03/24/2012) * CT NECK SOFT TISSUE W CONT(Performed 03/18/2012) Performed for Lymphadenopathy * HISTOPLASMA ANTIBODY PANEL(Performed 03/15/2012) Performed for Lymphadenopathy * BARTONELLA HUMPHREY ANTIBODY IGG/IGM PANEL(Performed 03/15/2012) Performed for Lymphadenopathy * BARTONELLA HENSELAE IGG/IGM AB PANEL(Performed 03/15/2012) Performed for Lymphadenopathy * DIFFERENTIAL MANUAL(Performed 03/15/2012) * TACROLIMUS LEVEL(Performed 03/15/2012) Performed for Liver replaced by transplant (HCC) * MAGNESIUM BLOOD(Performed 03/15/2012) Performed for Liver replaced by transplant (HCC) * LYTES (NA K CL CO2) BLOOD(Performed 03/15/2012) Performed for Liver replaced by transplant (HCC) * HEPATIC FUNCTION PANEL(Performed 03/15/2012) Performed for Liver replaced by transplant (HCC) * GLUCOSE(Performed 03/15/2012) Performed for Liver replaced by transplant (HCC) * GGT(Performed 03/15/2012) Performed for Liver replaced by transplant (HCC) * CREATININE BLOOD(Performed 03/15/2012) Performed for Liver replaced by transplant (HCC) * BUN(Performed 03/15/2012) Performed for Liver replaced by transplant (HCC) * CBC W AUTO DIFFERENTIAL(Performed 03/15/2012) Performed for Liver replaced by transplant (HCC) * NADINE-BORREGO VIRUS PCR QUANT BLOOD/CSF(Performed 03/15/2012) Performed for Liver replaced by transplant (HCC) * XR CHEST 2VW(Performed 03/09/2012) Performed for Hypogammaglobulinemia (HCC), Cellulitis and abscess of face * LDH BLOOD(Performed 03/09/2012) * NADINE-BORREGO VIRUS PCR QUALITATIVE(Performed 03/09/2012) * IP CONSULT TO NUTRITIONAL SERV(Performed 03/09/2012) * CULTURE BLOOD(Performed 03/08/2012) * IGG BLOOD(Performed 03/08/2012) * CBC W MANUAL DIFFERENTIAL(Performed 03/08/2012) * US SOFT TISSUE HEAD NECK(Performed 03/08/2012) Performed for Cellulitis * DIFFERENTIAL MANUAL(Performed 01/07/2012) * IGG BLOOD(Performed 01/07/2012) Performed for Hypogammaglobulinemia (HCC) * NADINE-BORREGO VIRUS PCR QUANT BLOOD/CSF(Performed 01/07/2012) Performed for Neutropenia associated with autoimmune disease (HCC) * CBC W AUTO DIFFERENTIAL(Performed 01/07/2012) Performed for Neutropenia associated with autoimmune disease (HCC) * PATHOLOGY/CYTOLOGY REPORT ORDER(Performed 12/28/2011) * ACQUIRED IMMUNE DEFICIENCY PANEL(Performed 12/10/2011) Performed for Hypogammaglobulinemia (HCC) * NADINE-BORREGO VIRUS PCR QUANT BLOOD/CSF(Performed 12/10/2011) Performed for Hypogammaglobulinemia (HCC), Neutropenia associated with autoimmune disease (HCC) * IGG BLOOD(Performed 12/10/2011) Performed for Hypogammaglobulinemia (HCC), Neutropenia associated with autoimmune disease (HCC) * COMPREHENSIVE METABOLIC PANEL(Performed 12/10/2011) Performed for Hypogammaglobulinemia (HCC), Neutropenia associated with autoimmune disease (HCC) * CBC W MANUAL DIFFERENTIAL(Performed 12/10/2011) Performed for Hypogammaglobulinemia (HCC), Neutropenia associated with autoimmune disease (HCC) * NADINE-BORREGO VIRUS PCR QUANT BLOOD/CSF(Performed 11/10/2011) Performed for Neutropenia associated with autoimmune disease (HCC) * IGG BLOOD(Performed 11/10/2011) Performed for Hypogammaglobulinemia (HCC) * COMPREHENSIVE METABOLIC PANEL(Performed 11/10/2011) Performed for Neutropenia associated with autoimmune disease (HCC) * CBC W AUTO DIFFERENTIAL(Performed 11/10/2011) Performed for Neutropenia associated with autoimmune disease (HCC) * COMPREHENSIVE METABOLIC PANEL(Performed 10/13/2011) Performed for Liver replaced by transplant (HCC) * IGG BLOOD(Performed 10/13/2011) Performed for Hypogammaglobulinemia (HCC) * CBC W MANUAL DIFFERENTIAL(Performed 10/13/2011) Performed for Neutropenia associated with autoimmune disease (HCC) * NADINE-BORREGO VIRUS PCR QUANT BLOOD/CSF(Performed 10/13/2011) Performed for Neutropenia associated with autoimmune disease (HCC) * COMPREHENSIVE METABOLIC PANEL(Performed 09/14/2011) Performed for Hypogammaglobulinemia (HCC) * NADINE-BORREGO VIRUS PCR QUANT BLOOD/CSF(Performed 09/14/2011) Performed for Hypogammaglobulinemia (HCC) * IGG BLOOD(Performed 09/14/2011) Performed for Hypogammaglobulinemia (HCC) * CBC W MANUAL DIFFERENTIAL(Performed 09/14/2011) Performed for Hypogammaglobulinemia (HCC) * DIFFERENTIAL MANUAL(Performed 08/17/2011) * COMPREHENSIVE METABOLIC PANEL(Performed 08/17/2011) Performed for Hypogammaglobulinemia (HCC), Neutropenia associated with autoimmune disease (HCC) * IGG BLOOD(Performed 08/17/2011) Performed for Hypogammaglobulinemia (HCC), Neutropenia associated with autoimmune disease (HCC) * CBC W AUTO DIFFERENTIAL(Performed 08/17/2011) Performed for Hypogammaglobulinemia (HCC), Neutropenia associated with autoimmune disease (HCC) * NADINE-BORREGO VIRUS PCR QUANT BLOOD/CSF(Performed 08/17/2011) Performed for Hypogammaglobulinemia (HCC), Neutropenia associated with autoimmune disease (HCC) * TACROLIMUS LEVEL(Performed 08/17/2011) Performed for Liver replaced by transplant (HCC) * NADINE-BORREGO VIRUS PCR QUANT BLOOD/CSF(Performed 07/20/2011) Performed for Hypogammaglobulinemia (HCC), Neutropenia associated with autoimmune disease (HCC) * IGG BLOOD(Performed 07/20/2011) Performed for Hypogammaglobulinemia (HCC), Neutropenia associated with autoimmune disease (HCC) * COMPREHENSIVE METABOLIC PANEL(Performed 07/20/2011) Performed for Hypogammaglobulinemia (HCC), Neutropenia associated with autoimmune disease (HCC) * CBC W AUTO DIFFERENTIAL(Performed 07/20/2011) Performed for Hypogammaglobulinemia (HCC), Neutropenia associated with autoimmune disease (HCC) * DIFFERENTIAL MANUAL(Performed 06/24/2011) * NADINE-BORREGO VIRUS PCR QUANT BLOOD/CSF(Performed 06/24/2011) Performed for Neutropenia associated with autoimmune disease (HCC) * CBC W AUTO DIFFERENTIAL(Performed 06/24/2011) Performed for Hypogammaglobulinemia (HCC) * IGG BLOOD(Performed 06/24/2011) Performed for Hypogammaglobulinemia (HCC) * NADINE-BORREGO VIRUS PCR QUANT BLOOD/CSF(Performed 05/26/2011) Performed for Neutropenia associated with autoimmune disease (HCC) * IGG BLOOD(Performed 05/26/2011) Performed for Hypogammaglobulinemia (HCC) * COMPREHENSIVE METABOLIC PANEL(Performed 05/26/2011) Performed for Neutropenia associated with autoimmune disease (HCC) * CBC W MANUAL DIFFERENTIAL(Performed 05/26/2011) Performed for Neutropenia associated with autoimmune disease (HCC) * LAB RESULTS ORDER(Performed 05/21/2011) * HEPATIC FUNCTION PANEL(Performed 04/29/2011) Performed for Hypogammaglobulinemia (HCC) * NADINE-BORREGO VIRUS PCR QUALITATIVE(Performed 04/29/2011) Performed for Hypogammaglobulinemia (HCC) * CBC W MANUAL DIFFERENTIAL(Performed 04/29/2011) Performed for Hypogammaglobulinemia (HCC) * BILIRUBIN DIRECT(Performed 03/24/2011) * DIFFERENTIAL MANUAL(Performed 03/24/2011) * GGT(Performed 03/24/2011) Performed for Transplant * IGG BLOOD(Performed 03/24/2011) Performed for Neutropenia associated with autoimmune disease (HCC) * COMPREHENSIVE METABOLIC PANEL(Performed 03/24/2011) Performed for Neutropenia associated with autoimmune disease (HCC) * CBC W AUTO DIFFERENTIAL(Performed 03/24/2011) Performed for Neutropenia associated with autoimmune disease (HCC) * TACROLIMUS LEVEL(Performed 03/24/2011) Performed for Transplant * MAGNESIUM BLOOD(Performed 03/24/2011) Performed for Transplant * NADINE-BORREGO VIRUS PCR QUANT BLOOD/CSF(Performed 03/24/2011) Performed for Neutropenia associated with autoimmune disease (HCC) * NADINE-BORREGO VIRUS PCR QUANT BLOOD/CSF(Performed 02/17/2011) Performed for Neutropenia associated with autoimmune disease (HCC) * ACQUIRED IMMUNE DEFICIENCY PANEL(Performed 02/17/2011) Performed for Neutropenia associated with autoimmune disease (HCC) * IGG BLOOD(Performed 02/17/2011) Performed for Hypogammaglobulinemia (HCC) * CBC W MANUAL DIFFERENTIAL(Performed 02/17/2011) Performed for Neutropenia associated with autoimmune disease (HCC) * COMPREHENSIVE METABOLIC PANEL(Performed 01/05/2011) Performed for Neutropenia associated with autoimmune disease (HCC) * CBC W MANUAL DIFFERENTIAL(Performed 01/05/2011) Performed for Hypogammaglobulinemia (HCC), Neutropenia associated with autoimmune disease (HCC) * IGG BLOOD(Performed 01/05/2011) Performed for Hypogammaglobulinemia (HCC), Neutropenia associated with autoimmune disease (HCC) * COMPREHENSIVE METABOLIC PANEL(Performed 12/12/2010) * IGG BLOOD(Performed 12/12/2010) * CBC W MANUAL DIFFERENTIAL(Performed 12/12/2010) Performed for Neutropenia associated with autoimmune disease (HCC) * COMPREHENSIVE METABOLIC PANEL(Performed 11/17/2010) Performed for Neutropenia associated with autoimmune disease (HCC) * IGG BLOOD(Performed 11/17/2010) Performed for Hypogammaglobulinemia (HCC) * CBC W MANUAL DIFFERENTIAL(Performed 11/17/2010) Performed for Neutropenia associated with autoimmune disease (HCC) * IMAGING/RADIOLOGY/XRAY RESULTS ORDER(Performed 11/12/2010) * ACQUIRED IMMUNE DEFICIENCY PANEL(Performed 10/21/2010) Performed for Hypogammaglobulinemia (HCC) * IMMUNOGLOBULINS IGG/IGM/IGA PANEL(Performed 10/21/2010) Performed for Hypogammaglobulinemia (HCC) * BILIRUBIN DIRECT(Performed 10/21/2010) Performed for Neutropenia associated with autoimmune disease (HCC) * GGT(Performed 10/21/2010) Performed for Neutropenia associated with autoimmune disease (HCC) * COMPREHENSIVE METABOLIC PANEL(Performed 10/21/2010) Performed for Neutropenia associated with autoimmune disease (HCC) * CBC W MANUAL DIFFERENTIAL(Performed 10/21/2010) Performed for Neutropenia associated with autoimmune disease (HCC), Hypogammaglobulinemia (HCC) * NADINE-BORREGO VIRUS PCR QUALITATIVE(Performed 10/21/2010) Performed for Neutropenia associated with autoimmune disease (HCC) * MAGNESIUM BLOOD(Performed 09/23/2010) Performed for Hypogammaglobulinemia (HCC), Neutropenia associated with autoimmune disease (HCC) * CBC W MANUAL DIFFERENTIAL(Performed 09/23/2010) Performed for Hypogammaglobulinemia (HCC), Neutropenia associated with autoimmune disease (HCC) * IGG BLOOD(Performed 09/23/2010) Performed for Hypogammaglobulinemia (HCC), Neutropenia associated with autoimmune disease (HCC) * COMPREHENSIVE METABOLIC PANEL(Performed 09/23/2010) Performed for Hypogammaglobulinemia (HCC), Neutropenia associated with autoimmune disease (HCC) * GGT(Performed 09/23/2010) Performed for Hypogammaglobulinemia (HCC), Neutropenia associated with autoimmune disease (HCC) * TACROLIMUS LEVEL(Performed 09/23/2010) Performed for Hypogammaglobulinemia (HCC), Neutropenia associated with autoimmune disease (HCC) * NADINE-BORREGO VIRUS PCR QUANT BLOOD/CSF(Performed 09/23/2010) Performed for Hypogammaglobulinemia (HCC), Neutropenia associated with autoimmune disease (HCC) * BILIRUBIN DIRECT(Performed 09/23/2010) Performed for Hypogammaglobulinemia (HCC), Neutropenia associated with autoimmune disease (HCC) * COMPREHENSIVE METABOLIC PANEL(Performed 08/11/2010) Performed for Neutropenia associated with autoimmune disease (HCC) * IGG BLOOD(Performed 08/11/2010) Performed for Hypogammaglobulinemia (HCC), Neutropenia associated with autoimmune disease (HCC) * CBC W MANUAL DIFFERENTIAL(Performed 08/11/2010) Performed for Hypogammaglobulinemia (HCC), Neutropenia associated with autoimmune disease (HCC) * BLOOD GASES NATHAN + COOX PANEL(Performed 08/11/2010) Performed for Polycythemia * CBC W MANUAL DIFFERENTIAL(Performed 07/15/2010) Performed for Hypogammaglobulinemia (HCC) * NADINE-BORREGO VIRUS PCR QUALITATIVE(Performed 07/15/2010) Performed for Hypogammaglobulinemia (HCC) * BASIC METABOLIC PANEL (CALCIUM TOTAL)(Performed 07/10/2010) Performed for Neutropenia Associated with Autoimmune Disease (HCC) * IGG BLOOD(Performed 07/10/2010) Performed for Hypogammaglobulinemia (HCC) * ERYTHROPOIETIN(Performed 07/10/2010) Performed for Neutropenia Associated with Autoimmune Disease (HCC) * HEPATIC FUNCTION PANEL(Performed 07/10/2010) Performed for Neutropenia Associated with Autoimmune Disease (HCC) * CBC W MANUAL DIFFERENTIAL(Performed 07/10/2010) Performed for Neutropenia Associated with Autoimmune Disease (HCC) * IGG BLOOD(Performed 06/10/2010) Performed for Neutropenia Associated with Autoimmune Disease (HCC) * COMPREHENSIVE METABOLIC PANEL(Performed 06/10/2010) Performed for Neutropenia Associated with Autoimmune Disease (HCC) * CBC W MANUAL DIFFERENTIAL(Performed 06/10/2010) Performed for Neutropenia Associated with Autoimmune Disease (HCC) * TACROLIMUS LEVEL(Performed 05/13/2010) Performed for Transplant * MAGNESIUM BLOOD(Performed 05/13/2010) Performed for Transplant * LYTES (NA K CL CO2) BLOOD(Performed 05/13/2010) Performed for Transplant * GLUCOSE(Performed 05/13/2010) Performed for Transplant * GGT(Performed 05/13/2010) Performed for Transplant * CREATININE BLOOD(Performed 05/13/2010) Performed for Transplant * BUN(Performed 05/13/2010) Performed for Transplant * HEPATIC FUNCTION PANEL(Performed 05/13/2010) Performed for Neutropenia Associated with Autoimmune Disease (HCC) * IGG BLOOD(Performed 05/13/2010) Performed for Neutropenia Associated with Autoimmune Disease (HCC) * CBC W MANUAL DIFFERENTIAL(Performed 05/13/2010) Performed for Neutropenia Associated with Autoimmune Disease (HCC) * PLATELET ASSOCIATED ANTIBODY DIRECT PANEL(Performed 04/15/2010) Performed for Neutropenia Associated with Autoimmune Disease (HCC) * FLOW CYTOMETRY NEUTROPHIL ASSOCIATED AB(Performed 04/15/2010) Performed for Neutropenia Associated with Autoimmune Disease (HCC) * IGG BLOOD(Performed 04/15/2010) Performed for Hypogammaglobulinemia (HCC) * CBC W MANUAL DIFFERENTIAL(Performed 04/15/2010) Performed for Neutropenia Associated with Autoimmune Disease (HCC), Hypogammaglobulinem NOS * CAROL DIRECT(Performed 03/18/2010) Performed for Neutropenia NEC, Immune Thrombocyt Purpra * IGG BLOOD(Performed 03/18/2010) Performed for Hypogammaglobulinemia (HCC) * NADINE-BORREGO VIRUS PCR QUANT BLOOD/CSF(Performed 03/18/2010) Performed for Neutropenia Associated with Autoimmune Disease (HCC) * COMPREHENSIVE METABOLIC PANEL(Performed 03/18/2010) Performed for Neutropenia Associated with Autoimmune Disease (HCC), Hypogammaglobulinem NOS * CBC W MANUAL DIFFERENTIAL(Performed 03/18/2010) Performed for Neutropenia Associated with Autoimmune Disease (HCC) * CBC W MANUAL DIFFERENTIAL(Performed 02/18/2010) Performed for Hypogammaglobulinemia (HCC), Neutropenia Associated with Autoimmune Disease (HCC) * PARVOVIRUS B19 PCR(Performed 01/24/2010) Performed for Immune Thrombocyt Purpra * CBC W MANUAL DIFFERENTIAL(Performed 01/24/2010) Performed for Immune Thrombocyt Purpra * CYTOMEGALOVIRUS DNA RT-PCR QUANT(Performed 01/24/2010) Performed for Immune Thrombocyt Purpra * COMPREHENSIVE METABOLIC PANEL(Performed 01/22/2010) Performed for Immune Thrombocyt Purpra * MAGNESIUM BLOOD(Performed 01/22/2010) Performed for Immune Thrombocyt Purpra * NADINE-BORREGO VIRUS PCR QUANT BLOOD/CSF(Performed 01/22/2010) Performed for Liver Transplant Status * TACROLIMUS LEVEL(Performed 01/22/2010) Performed for Liver Transplant Status * GGT(Performed 01/22/2010) Performed for Liver Transplant Status * BILIRUBIN DIRECT(Performed 01/22/2010) Performed for Liver Transplant Status * IGG BLOOD(Performed 01/22/2010) Performed for Liver Transplant Status * PTT(Performed 01/22/2010) Performed for Liver Transplant Status * PT-INR(Performed 01/22/2010) Performed for Liver Transplant Status * CBC W MANUAL DIFFERENTIAL(Performed 01/22/2010) Performed for Liver Transplant Status * CULTURE BLOOD(Performed 01/22/2010) Performed for Liver Transplant Status * XR CHEST 2VW(Performed 01/22/2010) Performed for Liver Transplant Status * CULTURE FUNGUS SKIN HAIR NAILS(Performed 11/18/2009) Performed for Immune Thrombocyt Purpra * NADINE-BORREGO VIRUS PCR QUANT BLOOD/CSF(Performed 11/18/2009) Performed for Immune Thrombocyt Purpra * IGG BLOOD(Performed 11/18/2009) Performed for Immune Thrombocyt Purpra * COMPREHENSIVE METABOLIC PANEL(Performed 11/18/2009) Performed for Immune Thrombocyt Purpra * CBC W MANUAL DIFFERENTIAL(Performed 11/18/2009) Performed for Immune Thrombocyt Purpra * BONE MARROW BIOPSY(Performed 06/04/2009) * GROSS + MICRO EXAM(Performed 06/17/2000) * GROSS + MICRO EXAM(Performed 04/06/2000) * GROSS + MICRO EXAM(Performed 03/04/2000) * GROSS + MICRO EXAM(Performed 03/09/1999) * GROSS + MICRO EXAM(Performed 03/03/1999) * GROSS + MICRO EXAM(Performed 03/02/1999) Results * (ABNORMAL) TACROLIMUS LEVEL (07/28/2014 8:31 AM CDT) Only the most recent of22 resultswithin the time period is included. Pathologist [facility] Tacrolimus, trough 3.5(L) mcg/L [facility]) Comment: No definitive therapeutic or toxic ranges have been established. Optimal blood drug levels are influenced by type of transplant, patient response, time post- transplant, co-administration of other drugs, and drug formulation. The following trough range is a suggested guideline: 5.0-20.0 mcg/L. Test Performed at: [facility] [id number] [place] [address] ??[phone] YOHAN LUTHER DO,MPH 07/28/2014 8:31 AM CDT 07/28/2014 8:31 AM CDT Kaycee Alexandre MD LAB - THERAPEUTIC DR MCCLELLAN MONITORING ORDERABLES [facility]) * (ABNORMAL) CBC W AUTO DIFFERENTIAL (07/28/2014 8:31 AM CDT) Only the most recent of56 resultswithin the time period is included. Pathologist [facility] WBC 11.5(H) 3.8 - 10.8 Thousand/u L [facility]) RBC 5.32 4.20 - 5.80 Million/uL [facility] ([facility] Hemoglobin 17.0 13.2 - 17.1 g/dL [facility]) Hematocrit 51.6(H) 38.5 - 50.0 % [facility] MCV 97.1 80.0 - 100.0 fL [facility]) MCH 32.0 27.0 - 33.0 pg [facility] MCHC 33.0 32.0 - 36.0 g/dL [facility]) RDW-CV 14.1 11.0 - 15.0 % [facility] Platelet 294 140 - 400 Thousand/u L [facility]) Neutrophils Absolute 7,245 1,500 - 7,800 cells/uL [facility]) Lymphocyte Absolute Manual 2,772 850 - 3,900 cells/uL [facility]) Monocytes Absolute 1265(H) 200 - 950 cells/uL [facility]) Eosinophils Absolute 173 15 - 500 cells/uL [facility]) Basophil Absolute Manual 46 0 - 200 cells/uL [facility]) Neutrophils % 63.0 % [facility]) Lymphocytes % 24.1 % [facility]) Monocytes % 11.0 % [facility]) Eosinophils % 1.5 % [facility] Basophil % 0.4 % [facility]) Comment: Test Performed at: [facility] [address] ??[phone] YOHAN LUTHER DO,MPH 07/28/2014 8:31 AM CDT 07/28/2014 8:31 AM CDT Kaycee Alexandre MD LAB - HEMATOLOGY ORD ERABLES [facility]) * (ABNORMAL) BASIC METABOLIC PANEL (CALCIUM TOTAL) (07/28/2014 8:31 AM CDT) Only the most recent of15 resultswithin the time period is included. Pathologist [facility] Glucose 106(H) 65 - 99 mg/dL [facility]) Comment: ? Fasting reference interval BUN 13 7 - 25 mg/dL [facility]) Creatinine 0.97 0.60 - 1.35 mg/dL [facility]) BUN/Creatinine Ratio NOT APPLICABLE 6 - 22 (calc) [facility] Sodium 141 135 - 146 mmol/L [facility] Potassium 4.1 3.5 - 5.3 mmol/L [facility] Chloride 106 98 - 110 mmol/L [facility] CO2 26 19 - 30 mmol/L [facility] Calcium 9.4 8.6 - 10.3 mg/dL [facility]) Comment: Test Performed at: [facility] [address] [place], [place] ??[phone] YOHAN LUTHER DO,MPH 07/28/2014 8:31 AM CDT 07/28/2014 8:31 AM CDT Kaycee Alexandre MD LAB - CHEMISTRY MACIE HERNÁNDEZ [facility] Organization Address City/State/ZIP Co de Phone Number [facility]) * (ABNORMAL) HEPATIC FUNCTION PANEL (07/28/2014 8:31 AM CDT) Only the most recent of24 resultswithin the time period is included. Protein Total 6.8 6.4 - 8.4 g/dL [facility] Albumin 4.1 3.6 - 5.1 g/dL [facility] Globulin 2.7 2.2 - 4.0 g/dL (calc) [facility]) Albumin/Globulin Ratio 1.5 0.9 - 2.3 (calc) [facility] Bilirubin Total 0.4 0.2 - 1.2 mg/dL [facility]) Bilirubin Direct 0.0 < OR = 0.2 mg/dL [facility] Bilirubin Indirect 0.4 0.2 - 1.2 mg/dL (calc) [facility]) Alkaline Phosphatase 134(H) 40 - 115 U/L [facility]) AST 34 10 - 40 U/L [facility] ALT 61(H) 9 - 46 U/L [facility]) Comment: Test Performed at: [facility] [address] [place], [place] ??[phone] YOHAN LUTHER DO,MPH 07/28/2014 8:31 AM CDT 07/28/2014 8:31 AM CDT Kaycee Alexandre MD LAB - CHEMISTRY MACIE HERNÁNDEZ Performing Organization Address [facility] de Phone Number [facility] * MAGNESIUM BLOOD (07/28/2014 8:31 AM CDT) Only the most recent of18 resultswithin the time period is included. Pathologist [facility] Magnesium 2.0 1.5 - 2.5 mg/dL [facility]) Comment: Test Performed at: [facility] [place] [address] [place], [place] ??[phone] YOHAN LUTHER DO,MPH 07/28/2014 8:31 AM CDT 07/28/2014 8:31 AM CDT Kaycee Alexandre MD LAB - CHEMISTRY MACIE HERNÁNDEZ Performing Organization Address [facility] de Phone Number [facility]) * CYTOMEGALOVIRUS DNA RT-PCR QUANT (02/17/2014 7:26 AM CDT) Only the most recent of8 resultswithin the time period is included. Pathologist [facility] Source Whole Blood [facility]) Cytomegalovirus Quantitative PCR <200 <200 copies/mL [facility]) Comment: Note: Although this result was below our lower limit of quantitation, CMV was detected. We suggest repeat testing if clinically warranted. This test was developed and its performance characteristics have been determined by [employer] [place], [place]. Performance characteristics refer to the analytical performance of the test. For more information on this test, go to http://education.[employer]/faq/CMVandEBVPCR Test Performed at: [facility] [address] ??[phone] ORLY HAYNES MD 02/17/2014 7:26 AM CDT 02/17/2014 7:28 AM CDT Kaycee Alexandre MD LAB - MICROBIOLOGY O RDERABLES Performing Organization Address [facility] de Phone Number [facility] * XR CHEST 2VW (01/21/2014 8:58 PM CDT) Only the most recent of3 resultswithin the time period is included. Anatomical Region Laterality Modality Chest Other Impressions 01/22/2014 7:48 AM CDT Impression: No acute pulmonary disease. Report dictated by Dl Carpenter DO (doctor of radiology). Dr. KELLY Ramirez M.D. have personally reviewed and interpreted this examination/study. This report was electronically signed by KELLY HARRISON M.D. ??on 01/22/2014 7:48 AM . Narrative 01/22/2014 7:48 AM CDT Examination: XR CHEST PA AND LATERAL Date: 01/21/2014 8:29 PM History: Immunocompromised. Fatigue. Right lower lobe pneumonia? Findings: No prior study is available for comparison. Multiple surgical clips are noted throughout the abdomen. The lungs are free of focal consolidation bilaterally. No pneumothorax or pleural effusion is identified. The cardiomediastinal silhouette is within normal limits. The visualized osseous structures appear intact. Procedure Note Kelly Harrison MD - 01/29/2018 Examination: XR CHEST PA AND LATERAL Date: 01/21/2014 8:29 PM History: Immunocompromised. Fatigue. Right lower lobe pneumonia? Findings: No prior study is available for comparison. Multiple surgical clips are noted throughout the abdomen. The lungs are free of focal consolidation bilaterally. No pneumothorax orpleural effusion is identified. The cardiomediastinal silhouette is withinnormal limits. The visualized osseous structures appear intact. IMPRESSION Impression: No acute pulmonary disease. Report dictated by Dl Carpenter DO (doctor of radiology). Dr. KELLY Ramirez M.D. have personally reviewed and interpreted thisexamination/study. This report was electronically signed by KELLY HARRISON M.D. on 01/22/20147:48 AM . Ascencion Bahena MD DIAGNOSTIC IMAGING O RDERABLES * PT-INR U (01/21/2014 8:45 PM CDT) Only the most recent of3 resultswithin the time period is included. PT 13.5 12.1 - 14.8 SECONDS [facility] INR 1.0 [facility] Comment: SUGGESTED THERAPEUTIC RANGE FOR LOW-INTENSITY COUMADIN THERAPY FOR VENOUS THROMBOEMBOLISM IS INR 2.0-3.0. ??FOR HIGH RISK PATIENTS (MITRAL VALVE PROSTHESIS, ATRIAL FIBRILLATION, HISTORY OF TIA/STROKE), SUGGESTED THERAPEUTIC RANGE IS INR 2.5-3.5. 01/21/2014 8:45 PM CDT 01/21/2014 8:57 PM CDT Radha Nam MD LAB - COAGULATION OR DERABLES Performing Organization Address [facility]/[place] [address], [facility] [phone] * CULTURE BLOOD (01/21/2014 8:40 PM CDT) Only the most recent of6 resultswithin the time period is included. Culture Blood NO GROWTH AFTER 5 DAYS. [facility] Blood specimen (specimen) (Venous, Peripheral) 01/21/2014 8:40 PM CDT 01/21/2014 8:52 PM CDT Narrative [facility] - 01/27/2014 1:53 PM CDT Draw 15 minutes after Culture 1 from a different site Specimen Type->Blood Ascencion Bahena MD LAB - MICROBIOLOGY O RDERABLES Performing Organization Address [facility] [place] [address], [facility] [phone] * TYPE + SCREEN PANEL (01/21/2014 8:25 PM CDT) Interpretation ABO/Rh Patient A POS [facility] Antibody Screen NEGATIVE [facility] Venous blood specimen (specimen) 01/21/2014 8:25 PM CDT 01/21/2014 8:59 PM CDT Ascencion Bahena MD LAB - BLOOD BANK ORD ERABLES Performing Organization Address [facility] [place] [address], [facility] [phone] * (ABNORMAL) COMPREHENSIVE METABOLIC PANEL (01/21/2014 8:25 PM CDT) Only the most recent of32 resultswithin the time period is included. BUN 12 7 - 26 mg/dL [facility] Creatinine 0.8 0.6 - 1.2 mg/dL [facility] eGFR by MDRD > 60 ML/MIN [facility] Comment: Chronic kidney disease: ??<60 ml/min Kidney failure: ?<15 ml/min Based on BSA of 1.73m2. Sodium 139 136 - 145 mmol/L [facility] Potassium 3.6 3.5 - 4.5 mmol/L [facility] Chloride 105 98 - 107 mmol/L [facility] CO2 25 22 - 29 mmol/L [facility] Glucose 106 70 - 115 mg/dL [facility] Calcium 9.1 8.4 - 10.2 mg/dL [facility] Protein Total 6.7 6.0 - 8.3 g/dL [facility] Albumin 3.3(L) 3.4 - 5.0 g/dL [facility] Bilirubin Total 0.4 0.2 - 1.2 mg/dL [facility] Alkaline Phosphatase 163(H) 40 - 150 Units/L [facility] ALT 35 0 - 55 Units/L [facility] AST 29 5 - 34 Units/L [facility] Anion Gap 13 8 - 18 [facility] BUN/Creatinine Ratio 15 7 - 23 [facility] Osmolality Calculation 273 270 - 300 mOsm/kg [facility] Albumin/Globulin Ratio 1.0(L) 1.1 - 2.3 [facility] Serum 01/21/2014 8:25 PM CDT 01/21/2014 8:50 PM CDT Ascencion Bahena MD LAB - CHEMISTRY MACIE HERNÁNDEZ [facility] [address] [place] [address] * NM LIVER SPECT (01/04/2014 1:06 PM PRICK STITCHER) Anatomical Region Laterality Modality Abdomen Other Impressions 01/04/2014 2:42 PM PRICK STITCHER Impression: 1. No evidence of accessory spleen. 2. Post-transplant changes in the liver, with uniform parenchymal tracer distribution. This report was approved ??by Hans Miller M.D. ?? on 01/04/2014 2:28 PM . I, Dr. MARTINEZ PATEL D.O. have personally reviewed and interpreted this examination/study. This report was electronically signed by MARTINEZ PATEL D.O. ??on 01/04/2014 2:42 PM . Narrative 01/04/2014 2:42 PM PRICK STITCHER Procedure: ??Liver spleen scan. 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 Technique: 5.5 mCi of Tc 99m sulfur colloid was injected intravenously in the right antecubital vein. Five minutes after tracer injection, SPECT/CT images of the upper abdomen were obtained. Findings: No prior study is available for comparison. The liver measures 15 cm in craniocaudal dimension (upper normal limit 18 cm) and the spleen is not visualized. Postsurgical changes are seen in the liver. There is no evidence of tracer uptake in the left upper quadrant to suggest accessory spleen. Procedure Note Martinez Patel, DO - 01/29/2018 Procedure: Liver spleen scan. 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 The presence of an accessoryspleen is suspected as the etiology for recurrent ITP. Technique: 5.5 mCi of Tc 99m sulfur colloid was injected intravenously inthe right antecubital vein. Five minutes after tracer injection, SPECT/CTimages of the upper abdomen were obtained. Findings: No prior study is available for comparison. The liver measures 15 cm in craniocaudal dimension (upper normal limit 18cm) and the spleen is not visualized. Postsurgical changes are seen in theliver. There is no evidence of tracer uptake in the left upper quadrant tosuggest accessory spleen. IMPRESSION Impression: 1. No evidence of accessory spleen. 2. Post-transplant changes in the liver, with uniform parenchymal tracerdistribution. This report was approved by Hans Miller M.D. on 01/04/2014 2:28 PM . I, Dr. MARTINEZ PATEL D.O. have personally reviewed and interpreted thisexamination/study. This report was electronically signed by MARTINEZ PATEL D.O. on 01/04/20142:42 PM . Davida Vilchis MD NM ORDERABLES * NADINE-BORREGO VIRUS PCR QUANT BLOOD/CSF (12/30/2013 7:29 AM PRICK STITCHER) Only the most recent of30 resultswithin the time period is included. Source Whole Blood [address] [facility] ([facility]) Comment: This test was developed and its performance characteristics have been determined by [employer] [place], [place]. Performance characteristics refer to the analytical performance of the test. For more information on this test, go to http://education.[employer]/faq/CMVandEBVPCR Test Performed at: [facility] [address] ??[phone] ORLY HAYNES MD 12/30/2013 7:29 AM PRICK STITCHER 12/30/2013 7:30 AM PRICK STITCHER Parish Lawson MD LAB - MICROBIOLOGY O RDERABLES [facility]) * (ABNORMAL) IGG BLOOD (12/30/2013 7:29 AM PRICK STITCHER) Only the most recent of39 resultswithin the time period is included. IgG 2448(H) 694 - 1618 mg/dL [facility] ([facility]) Comment: Test Performed at: [facility] [place] [address] [place] ??[phone] YOHAN LUTHER DO,MPH Venous blood specimen (specimen) 12/30/2013 7:29 AM PRICK STITCHER 12/30/2013 7:30 AM PRICK STITCHER Parish Lawson MD LAB - CHEMISTRY MACIE HERNÁNDEZ Performing Organization Address [facility]/ZIP Co de Phone Number [facility] ([facility]) * LAB RESULTS ORDER (12/26/2013 5:55 PM PRICK STITCHER) Only the most recent of9 resultswithin the time period is included. Narrative 12/26/2013 5:55 PM PRICK STITCHER Ordered by an unspecified provider. Transcriptions Document, Scanned - 10/27/2013 3:02 AM CST Document, Scanned - 10/30/2013 11:44 PM CST Document, Scanned - 12/26/2013 5:55 PM CST Scanned Document LAB - THERAPEUTIC DR MCCLELLAN MONITORING ORDERABLES * (ABNORMAL) CBC W/O DIFFERENTIAL (12/24/2013 1:20 PM PRICK STITCHER) Only the most recent of2 resultswithin the time period is included. WBC 5.6 3.5 - 10.5 10^3/uL [facility] RBC 4.38 4.30 - 5.70 10^6/uL [facility] Hemoglobin 14.5 13.5 - 17.5 g/dL [facility] Hematocrit 40.0 39.0 - 50.0 % [facility] MCV 91.3 81.0 - 97.0 FL [facility] MCH 33.1 28.0 - 34.0 PG [facility] MCHC 36.3(H) 32.0 - 36.0 G/DL [facility] Platelet 238 150 - 400 10^3/uL [facility] Comment:RESULTS CONFIRMED BY REPEAT ANALYSIS. RDW 14.6 11.2 - 14.8 % [facility] RDW-SD 49.7 36 - 50 FL [facility] MPV 10.6 9.3 - 12.8 FL [facility] Venous blood specimen (specimen) 12/24/2013 1:20 PM PRICK STITCHER 12/24/2013 1:35 PM PRICK STITCHER Davida Vilchis MD LAB - HEMATOLOGY GRACE MCCORMICK [address] [phone] * PHOSPHORUS BLOOD (12/23/2013 8:39 AM PRICK STITCHER) Only the most recent of5 resultswithin the time period is included. Phosphorus 2.6 2.3 - 4.7 mg/dL [facility] Serum 12/23/2013 8:39 AM PRICK STITCHER 12/23/2013 9:36 AM PRICK STITCHER Davida Vilchis MD LAB - CHEMISTRY MACIE HERNÁNDEZ Performing Organization Address [facility]/ZIP Co de Phone Number [address] [phone] * PTT SLU (12/22/2013 10:04 AM PRICK STITCHER) APTT 26.8 23.0 - 38.4 SECONDS [facility] Comment: SUGGESTED THERAPEUTIC RANGE FOR FULL DOSE I.V. HEPARIN THERAPY FOR VENOUS THROMBOEMBOLISM IS 66.0 - 91.0 SECONDS, WITH AN APTT RATIO OF 2.1 - 3.0. APTT Ratio 0.79 [facility] Plasma specimen (specimen) 12/22/2013 10:04 AM PRICK STITCHER 12/22/2013 10:11 AM PRICK STITCHER Narrative [facility] - 12/22/2013 10:35 AM PRICK STITCHER Is patient on Heparin, Argatroban or Dabigatran?->N IS PATIENT ON HEPARIN? (Y OR N) N Yohan Singh LAB - COAGULATION ORDERABLES Performing Organization Address [facility]/ZIP Co de Phone Number [address] [phone] * (ABNORMAL) URINALYSIS W/MICROSCOPIC NO CULTURE (12/22/2013 10:00 AM PRICK STITCHER) Color UA YELLOW STRW,YELLOW [facility] Clarity UA CLEAR CLEAR [facility] Specific [place] Urine 1.008 1.001 - 1.030 [facility] pH UA 5.5 5.0 - 8.0 [facility] Protein UA NEGATIVE <20 mg/dL [facility] Glucose UA NEGATIVE NEGATIVE mg/dL [facility] Ketones NEGATIVE NEGATIVE mg/dL [facility] Bilirubin UA NEGATIVE NEGATIVE mg/dL [facility] Blood UA NEGATIVE NEGATIVE [facility] Nitrite UA NEGATIVE NEGATIVE [facility] Leukocyte Esterase NEGATIVE NEGATIVE [facility] Urobilinogen UA < 2.0 <2.0 mg/dL [facility] RBC Urine 2 0 - 8 /HPF [facility] WBC Urine < 1 0 - 2 /HPF [facility] Mucus Urine OCCASIONAL( A) NONE SEEN /LPF [facility] Urine specimen (specimen) 12/22/2013 10:00 AM PRICK STITCHER 12/22/2013 11:05 AM PRICK STITCHER Yohan Singh LAB - URINALYSIS O RDERABLES Performing Organization Address City/State/[facility] Co de Phone Number [facility] [address] [place] [address] * US ABDOMEN DOPPLER ONLY LTD (11/29/2013 11:01 AM PRICK STITCHER) Anatomical Region Laterality Modality Abdomen Other Impressions 11/29/2013 2:22 PM PRICK STITCHER Impression: 1. Status post liver transplant without discrete liver lesion or biliary dilation. 2. 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 This report was approved ??by Ramana Mendes M.D. ?? on 11/29/2013 2:22 PM . I, Dr. TODD JOHNSON M.D. have personally reviewed and interpreted this examination/study. This report was electronically signed by TODD JOHNSON M.D. ??on 11/29/2013 2:22 PM . Narrative 11/29/2013 2:22 PM PRICK STITCHER Exam: Abdominal ultrasound limited with Doppler evaluation of the hepatic vasculature. History: 18-year-old male status post liver transplant in 1998. Comparison: PET/CT 03/23/2012 Technique: Grayscale, real-time, and color Doppler imaging with spectral analysis are performed of the right upper quadrant. Findings: The liver is normal in echotexture. ??No discrete mass or intrahepatic biliary dilation is seen. There are multiple hyperechoic foci with ringdown artifact along the liver surface likely corresponding with the surgical clips seen on PET/CT. No ascites is present. The gallbladder is absent. The common bile duct is not dilated at 4 mm. The right kidney measures 9.7 cm in length. Limited views fail to reveal evidence of hydronephrosis or calculus. The visible pancreatic head and body show normal echogenicity. Doppler: The hepatic veins are patent with normal venous waveforms. The main portal vein is mildly prominent. The main portal vein is patent with a normal portal waveform and hepatopedal flow. The proper hepatic artery is patent with a normal arterial waveform and a resistive index of 0.67. Procedure Note Provider, MD Dl - 01/29/2018 Exam: Abdominal ultrasound limited with Doppler evaluation of the hepaticvasculature. History: 18-year-old male status post liver transplant in 1998. Comparison: PET/CT 03/23/2012 Technique: Grayscale, real-time, and color Doppler imaging with spectral analysis areperformed of the right upper quadrant. Findings: The liver is normal in echotexture. No discrete mass or intrahepaticbiliary dilation is seen. There are multiple hyperechoic foci withringdown artifact along the liver surface likely corresponding with thesurgical clips seen on PET/CT. No ascites is present. The gallbladder is absent. The common bile duct is not dilated at 4 mm. The right kidney measures 9.7 cm in length. Limited views fail to revealevidence of hydronephrosis or calculus. The visible pancreatic head andbody show normal echogenicity. Doppler: The hepatic veins are patent with normal venous waveforms. The main portalvein is mildly prominent. The main portal vein is patent with a normalportal waveform and hepatopedal flow. The proper hepatic artery is patentwith a normal arterial waveform and a resistive index of 0.67. IMPRESSION Impression: 1. Status post liver transplant without discrete liver lesion or biliarydilation. 2. 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 This report was approved by Ramana Mendes M.D. on 11/29/2013 2:22PM . I, Dr. TODD JOHNSON M.D. have personally reviewed and interpreted thisexamination/study. This report was electronically signed by TODD JOHNSON M.D. on 11/29/20132:22 PM . Kaycee Alexandre MD US ORDERABLES * US ABDOMEN LIMITED (11/29/2013 11:01 AM PRICK STITCHER) Only the most recent of2 resultswithin the time period is included. Anatomical Region Laterality Modality Abdomen Other Impressions 11/29/2013 2:22 PM PRICK STITCHER Impression: 1. Status post liver transplant without discrete liver lesion or biliary dilation. 2. 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 This report was approved ??by Ramana Mendes M.D. ?? on 11/29/2013 2:22 PM . I, Dr. TODD JOHNSON M.D. have personally reviewed and interpreted this examination/study. This report was electronically signed by TODD JOHNSON M.D. ??on 11/29/2013 2:22 PM . Narrative 11/29/2013 2:22 PM PRICK STITCHER Exam: Abdominal ultrasound limited with Doppler evaluation of the hepatic vasculature. History: 18-year-old male status post liver transplant in 1998. Comparison: PET/CT 03/23/2012 Technique: Grayscale, real-time, and color Doppler imaging with spectral analysis are performed of the right upper quadrant. Findings: The liver is normal in echotexture. ??No discrete mass or intrahepatic biliary dilation is seen. There are multiple hyperechoic foci with ringdown artifact along the liver surface likely corresponding with the surgical clips seen on PET/CT. No ascites is present. The gallbladder is absent. The common bile duct is not dilated at 4 mm. The right kidney measures 9.7 cm in length. Limited views fail to reveal evidence of hydronephrosis or calculus. The visible pancreatic head and body show normal echogenicity. Doppler: The hepatic veins are patent with normal venous waveforms. The main portal vein is mildly prominent. The main portal vein is patent with a normal portal waveform and hepatopedal flow. The proper hepatic artery is patent with a normal arterial waveform and a resistive index of 0.67. Procedure Note Provider, MD Dl - 01/29/2018 Exam: Abdominal ultrasound limited with Doppler evaluation of the hepaticvasculature. History: 18-year-old male status post liver transplant in 1998. Comparison: PET/CT 03/23/2012 Technique: Grayscale, real-time, and color Doppler imaging with spectral analysis areperformed of the right upper quadrant. Findings: The liver is normal in echotexture. No discrete mass or intrahepaticbiliary dilation is seen. There are multiple hyperechoic foci withringdown artifact along the liver surface likely corresponding with thesurgical clips seen on PET/CT. No ascites is present. The gallbladder is absent. The common bile duct is not dilated at 4 mm. The right kidney measures 9.7 cm in length. Limited views fail to revealevidence of hydronephrosis or calculus. The visible pancreatic head andbody show normal echogenicity. Doppler: The hepatic veins are patent with normal venous waveforms. The main portalvein is mildly prominent. The main portal vein is patent with a normalportal waveform and hepatopedal flow. The proper hepatic artery is patentwith a normal arterial waveform and a resistive index of 0.67. IMPRESSION Impression: 1. Status post liver transplant without discrete liver lesion or biliarydilation. 2. 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 This report was approved by Ramana Mendes M.D. on 11/29/2013 2:22PM . I, Dr. TODD JOHNSON M.D. have personally reviewed and interpreted thisexamination/study. This report was electronically signed by TODD JOHNSON M.D. on 11/29/20132:22 PM . Kaycee Aleaxndre MD US ORDERABLES * (ABNORMAL) NADINE-BORREGO VIRUS PCR QUANTITATIVE WHOLE BLOOD (10/03/2013 8:35 AM PRICK STITCHER) Only the most recent of3 resultswithin the time period is included. Nadine-Borrego Quant Source Whole Blood 10/05/2013 10:54 AM PRICK STITCHER [facility] Nadine-Borrego Quant copy/mL Not Quantified cpy/mL 10/05/2013 10:54 AM PRICK STITCHER [facility] Nadine-Borrego Quant Log Not Quantified log 10/05/2013 10:54 AM PRICK STITCHER [facility] Comment: Not Quantified - EBV DNA was detected, but at a level below 2.6 log copies/mL (390 copies/mL). Virus detected at a level below 2.6 log copies/mL cannot be accurately quantified by this assay. INTERPRETIVE INFORMATION: Nadine Borrego Virus by Quantitative PCR The quantitative range of this assay is 2.6-7.6 log copies/mL (390-39,000,000 copies/mL). A negative result (less than 2.6 log copies/mL or less than 390 copies/mL) does not rule out the presence of PCR inhibitors in the patient specimen or EBV DNA nucleic acid in concentrations below the level of detection of the assay. Inhibition may also lead to underestimation of viral quantitation. No international standard is currently available for calibration of this assay. Caution should be taken when interpreting results generated by different assay methodologies. Test developed and characteristics determined by [employer]. See Compliance Statement A: [email or web address] Interpretation EBV Quantitative Detected(A) Not Detected 10/05/2013 10:54 AM PRICK STITCHER [facility] Blood specimen (specimen) BLOOD SPECIMEN / Unknown 10/03/2013 8:35 AM PRICK STITCHER 10/03/2013 8:50 AM PRICK STITCHER Ramana Ham MD LAB - SEROLOGY OR DERABLES Performing Organization Address City/[facility] Co de Phone Number [facility] [address] [place] [address] * CAROL DIRECT (10/03/2013 8:35 AM PRICK STITCHER) Only the most recent of4 resultswithin the time period is included. Direct Carol (ALEX) Negative 10/03/2013 11:15 AM PRICK STITCHER [facility]OD [facility] Direct Carol (ALEX) IgG Negative 10/03/2013 11:15 AM PRICK STITCHER [facility] LAB Blood Bank BLOOD SPECIMEN / Unknown 10/03/2013 8:35 AM PRICK STITCHER 10/03/2013 8:50 AM PRICK STITCHER Ramana Ham MD LAB - BLOOD BANK ORDERABLES [facility] * STREP A SCREEN DIRECT W RFLX STREP A CULTURE (07/06/2013 11:56 AM CDT) Strep A Rapid Negative Negative 07/06/2013 12:47 PM CDT [facility] Throat ENTIRE THROAT (SURFACE REGION OF NECK) / Unknown Collection / Unknown 07/06/2013 11:56 AM CDT 07/06/2013 12:04 PM CDT Narrative [facility] - 07/06/2013 12:47 PM CDT Test has reflexed to a Strep A culture. Ramana Ham MD LAB - MICROBIOLOG Y ORDERABLES Performing Organization Address City/[facility]/ZIP Co de Phone Number [facility] [address] [place] [address] * CULTURE STREP GROUP A (07/06/2013 11:56 AM CDT) Culture Negative for Beta Hemolytic Streptococcus Group A 07/08/2013 8:42 AM CDT [facility] MICROBIOLOGY Microbiology ENTIRE THROAT (SURFACE REGION OF NECK) / Unknown 07/06/2013 11:56 AM CDT 07/06/2013 12:04 PM CDT Ramana Ham MD LAB - MICROBIOLOG Y ORDERABLES Performing Organization Address City/[facility] Co de Phone Number [facility]CRO[facility] [address] * (ABNORMAL) NEUTROPHIL ASSOCIATED ANTIBODIES (07/06/2013 11:53 AM CDT) Only the most recent of2 resultswithin the time period is included. Neutrophil Associated Antibody Positive (A) Negative 07/07/2013 4:50 PM CDT [facility] Comment: INTERPRETIVE INFORMATION: Neutrophil Associated Antibodies Neutrophil-associated antibodies may cause neutropenia in various autoimmune disorders including Felty's syndrome, SLE and drug-induced neutropenia. Febrile transfusion reactions and isoimmune neutropenia may also be caused by antibodies to neutrophil-specific antigens or HLA antigens. A positive result on this test is not definitive for specific anti-neutrophil antibodies, since anti-HLA antibodies and immune complexes may also cause a positive result. The result of this test should be correlated to clinical history and other data. Test developed and characteristics determined by [employer]. See Compliance Statement A: [email or web address] Blood specimen (specimen) BLOOD SPECIMEN / Unknown 07/06/2013 11:53 AM CDT 07/06/2013 1:42 PM CDT Ramana Ham MD LAB - SEROLOGY OR DERABLES [facility] [address] [place] [address] * POTASSIUM BLOOD (07/06/2013 11:53 AM CDT) Pathologist [facility] Potassium 5.0 3.5 - 5.1 mmol/L 07/06/2013 12:54 PM CDT [facility] Blood BLOOD SPECIMEN / Unknown Venipuncture / Unknown 07/06/2013 11:53 AM CDT 07/06/2013 12:04 PM CDT Narrative [facility] - 07/06/2013 12:54 PM CDT Slight hemolysis Ramana Ham MD LAB - CHEMISTRY O RDERABLES [facility] [address] [place] [address] * (ABNORMAL) DIFFERENTIAL MANUAL (07/06/2013 10:16 AM CDT) Only the most recent of29 resultswithin the time period is included. WBC Auto 4(L) 4.4 - 10.7 X(10)9/L 07/06/2013 11:19 AM T [facility] Neutrophil % Manual 10(L) 44 - 73 % 07/06/2013 11:19 AM T [facility] Lymphocytes % Manual 46(H) 20 - 43 % 07/06/2013 11:19 AM T [facility] Monocytes % Manual 26(H) 5 - 13 % 07/06/2013 11:19 AM T [facility] Eosinophils % Manual 9(H) 0 - 6 % 07/06/2013 11:19 AM [facility] Basophils % Manual 2 0 - 2 % 07/06/2013 11:19 AM [facility] Atypical Lymphocyte % Manual 7(H) <=0 % 07/06/2013 11:19 AM [facility] Cells Counted 100 # cells 07/06/2013 11:19 AM [facility] Platelet Estimation Decreased (A) Normal, Adequate platelets 07/06/2013 11:19 AM [facility] WBC Morph Normal 07/06/2013 11:19 AM [facility] Anisocytosis 1+(A) None 07/06/2013 11:19 AM CDT [facility] Poikilocytosis 1+(A) None 07/06/2013 11:19 AM CDT [facility] Large Platelets Occasiona l(A) None 07/06/2013 11:19 AM CDT [facility] Blood BLOOD SPECIMEN / Unknown 07/06/2013 10:16 AM CDT 07/06/2013 10:49 AM CDT Ramana Ham MD LAB - HEMATOLOGY ORDERABLES Performing Organization Address [facility] Co de Phone Number [facility] [address] [place] [address] * CULTURE FUNGUS SKIN HAIR NAIL+FUNGUS SMEAR (05/16/2013 10:13 AM CDT) Culture No Fungus Isolated 06/11/2013 11:15 AM CDT [facility] Fungus Smear No yeast or hyphae seen 06/11/2013 11:15 AM CDT [facility]CRO[facility] Microbiology TISSUE SPECIMEN FROM SKIN / Unknown 05/16/2013 10:13 AM CDT 05/16/2013 10:30 AM CDT Ramana Ham MD LAB - MICROBIOLOG Y ORDERABLES Performing Organization Address [facility] Co de Phone Number [facility] MICROBIOLOGY [address] [place] * (ABNORMAL) GGT (05/16/2013 8:14 AM CDT) Only the most recent of8 resultswithin the time period is included. GGT 93(H) 8 - 69 U/L 05/16/2013 8:51 AM CDT [facility] Blood specimen (specimen) BLOOD SPECIMEN / Unknown 05/16/2013 8:14 AM CDT 05/16/2013 8:25 AM CDT Felipe Mon MD LAB - CHEMISTRY MACIE HERNÁNDEZ Performing Organization Address [facility] Co de Phone Number [facility] [address] [place] [address] * (ABNORMAL) IMMUNOGLOBULINS PANEL (02/27/2013 8:32 AM CDT) Only the most recent of3 resultswithin the time period is included. IgA 6(L) 63 - 484 mg/dL 02/27/2013 9:50 AM CDT [facility] IgG 670 540 - 1,822 mg/dL 02/27/2013 9:50 AM CDT [facility] IgM 9(L) 22 - 240 mg/dL 02/27/2013 9:50 AM CDT [facility] Blood specimen (specimen) BLOOD SPECIMEN / Unknown 02/27/2013 8:32 AM CDT 02/27/2013 8:48 AM CDT Cindi Malloy MD LAB - CHEMISTRY MACIE HERNÁNDEZ Performing Organization Address City/[facility]/ZIP Co de Phone Number [facility] [address] [place] [address] * LIPASE BLOOD (01/17/2013 8:19 AM CDT) Only the most recent of5 resultswithin the time period is included. Lipase 88 10 - 220 U/L 01/17/2013 9:56 AM CDT [facility] Blood specimen (specimen) BLOOD SPECIMEN / Unknown 01/17/2013 8:19 AM CDT 01/17/2013 8:27 AM CDT Ramana Ham MD LAB - CHEMISTRY Amandeep SMITH Performing Organization Address City/[facility]/ZIP Co de Phone Number [facility] [address] [place] [id number] * LIPASE FLUID (01/02/2013 8:35 AM PR[facility]ER) Only the most recent of4 resultswithin the time period is included. Lipase Fluid 80 U/L 01/02/2013 9:37 AM [facility] Fluid Type Peritoneal 01/02/2013 9:37 AM [facility] Fluid specimen (specimen) PERITONEAL FLUID / Unknown 01/02/2013 8:35 AM [facility]ER 01/02/2013 8:40 AM [facility]ER Narrative [facility] - 01/02/2013 9:37 AM [facility] Fluid Disclaimer No reference ranges are available for this specimen type, results may be inaccurate, assay designed for serum/plasma or urine. Assay was performed at client? s request on a suboptimal specimen type. Test results should be interpreted with caution. Omar Moreland MD LAB - BODY FLUID ORD ERABLES Performing Organization Address [facility] Co de Phone Number [facility] [address] [place] [address] * AMYLASE FLUID (01/02/2013 8:35 AM [facility]ER) Only the most recent of4 resultswithin the time period is included. Amylase Fluid 41 U/L 01/02/2013 9:36 AM [facility] Fluid specimen (specimen) PERITONEAL FLUID / Unknown 01/02/2013 8:35 AM [facility]ER 01/02/2013 8:40 AM [facility]ER Narrative [facility] - 01/02/2013 9:36 AM [facility]ER Fluid Disclaimer No reference ranges are available for this specimen type, results may be inaccurate, assay designed for serum/plasma or urine. Assay was performed at client? s request on a suboptimal specimen type. Test results should be interpreted with caution. Omar Moreland MD LAB - BODY FLUID ORD JACE Performing Organization Address [facility] Co de Phone Number [facility] [address] [place] [address] * AMYLASE BLOOD (01/02/2013 8:17 AM [facility]ER) Only the most recent of4 resultswithin the time period is included. Amylase 56 25 - 125 U/L 01/02/2013 9:26 AM [facility]ER [facility] Blood specimen (specimen) BLOOD SPECIMEN / Unknown 01/02/2013 8:17 AM [facility]ER 01/02/2013 8:36 AM [facility]ER Omar Moreland MD LAB - CHEMISTRY MACIE HERNÁNDEZ Performing Organization Address [facility] Co de Phone Number [facility] [address] [place] [address] * PATHOLOGY/CYTOLOGY REPORT ORDER (12/30/2012 6:39 AM [facility]ER) Only the most recent of3 resultswithin the time period is included. Narrative 12/30/2012 6:39 AM [facility]ER Procedure Note Document, Scanned - 12/30/2012 6:39 AM CST Scanned Document LAB - PATHOLOGY/CYTO LOGY ORDERABLES * CROSSMATCH RBC (12/27/2012 12:12 AM [facility]ER) Only the most recent of10 resultswithin the time period is included. Unit Donor # [id number] -O 12/27/2012 12:12 AM [facility] Product Code E0420 12/27/2012 12:12 AM [facility] Unit Description E0420 RBC, IRR, LR, -5 12/27/2012 12:12 AM [facility] ABO Donor Type A 12/27/2012 12:12 AM [facility] Rh Type Unit POS 12/27/2012 12:12 AM [facility] Crossmatch Interpretation Compatible 12/27/2012 12:12 AM [facility] Unit Status Returned 12/27/2012 12:12 AM [facility] Miscellaneous samples (specimen) BLOOD SPECIMEN / Unknown 12/23/2012 12:55 PM [facility]ER Gregory Fung MD LAB - BLOOD BANK OR DERABLES [facility] * US LIVER W DOPPLER PORTAL VEIN (12/26/2012 10:15 AM [facility]ER) Anatomical Region Laterality Modality Ultrasound 12/26/2012 10:4 3 AM [facility]ER Impressions 12/26/2012 10:43 AM [facility]ER Patent portal vein with appropriate directional flow. Narrative 12/26/2012 10:43 AM [facility] Ultrasound of the liver with Doppler performed 12/26/2012. History: Status post segmental liver transplant. Status post splenectomy. Assess portal vein patency. Utilizing simultaneous real time, pulse, and color-flow Doppler imaging the transplanted left lobe of the liver was evaluated. Comparison is made with prior ultrasound of 12/19/[address] scan of October 27, 2012. There is a tiny amount of residual free intraperitoneal air anterior to the transplanted left lobe of the liver. The transplanted liver is of normal echotexture without focal parenchymal abnormality. No perinephric fluid collections are seen. The main portal vein is enlarged but widely patent. Blood flow is appropriate in direction in the portal vein. Hepatic artery is patent as well with a resistive index of 0.61. The hepatic veins are also patent with appropriate directional flow in this patient with azygos continuation of the IVC. Procedure Note Jodi Foreman MD - 12/26/2012 Ultrasound of the liver with Doppler performed 12/26/2012. History: Status post segmental liver transplant. Status post splenectomy. Assess portal vein patency. Utilizing simultaneous real time, pulse, and color-flow Doppler imaging the transplanted left lobe of the liver was evaluated. Comparison is made with prior ultrasound of 12/19/[address] as well as recent CT scan of October 27, 2012. There is a tiny amount of residual free intraperitoneal air anterior to the transplanted left lobe of the liver. The transplanted liver is of normal echotexture without focal parenchymal abnormality. No perinephric fluid collections are seen. The main portal vein is enlarged but widely patent. Blood flow is appropriate in direction in the portal vein. Hepatic artery is patent as well with a resistive index of 0.61. The hepatic veins are also patent with appropriate directional flow in this patient with azygos continuation of the IVC. IMPRESSION Patent portal vein with appropriate directional flow. Kay Marc MD ORDERABLES * (ABNORMAL) CMV ANTIBODY IGG IGM BLOOD PANEL (12/25/2012 2:29 PM [facility]ER) Cytomegalovirus Antibody IgG 4.6(H) <0.9 12/28/2012 3:03 PM [facility] Cytomegalovirus Antibody IgM 0.3 <0.9 12/28/2012 3:03 PM [facility] Blood specimen (specimen) BLOOD SPECIMEN / Unknown 12/25/2012 2:29 PM [facility]ER 12/25/2012 2:45 PM [facility] - 12/28/2012 3:03 PM [facility] ? <0.9 Negative ??0.9 - 1.0 Equivocal ?>=1.1 Positive Kay Marc MD LAB - CHEMISTR Y ORDERABLES [facility] [address] [place] [address] * (ABNORMAL) [id number] ANTIBODY IGG (12/25/2012 2:29 PM [facility]ER) Herpesvirus 6 Antibody IgG 5.93(H) <=0.89 IV 12/27/2012 6:30 PM [facility] vzaar Comment: INTERPRETIVE INFORMATION: Herpesvirus 6 (HHV-6) Ab, IgG ??0.89 IV or less ..... Negative: No significant level of ?detectable HHV-6 IgG antibody. ??0.90 - 1.10 IV ...... Equivocal: Questionable presence of ?HHV-6 IgG antibody. Repeat testing ?in 10-14 days may be helpful. ??1.11 IV or greater .. 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 The best evidence for current infection is a significant change on two appropriately timed specimens, where both tests are done in the same laboratory at the same time. This test was developed and its performance characteristics determined by [employer]. The U.S. Food and Drug Administration has not approved or cleared this test; however, FDA clearance or approval is not currently required for clinical use. The results are not intended to be used as the sole means for clinical diagnosis or patient management decisions. Blood specimen (specimen) BLOOD SPECIMEN / Unknown 12/25/2012 2:29 PM [facility]ER 12/25/2012 2:45 PM [facility]ER Kay Marc MD LAB - SEROLOGY ORDERABLES [facility] [address] [place] [address] * (ABNORMAL) GLUCOSE - POINT OF CARE (12/24/2012 5:32 AM [facility]ER) Glucose WB/POC 119(H) 70 - 106 mg/dL 12/24/2012 5:34 AM [facility] Blood specimen (specimen) BLOOD SPECIMEN / Unknown 12/24/2012 5:32 AM [facility]ER 12/24/2012 5:34 AM [facility] Gregory Fung MD LAB - POINT OF CARE ORDERABLES [facility] [address] [place] [address] * XR PORTABLE CHEST XRAY (12/23/2012 11:29 PM [facility]ER) Anatomical Region Laterality Modality Chest Radiographic Shilpi ging 12/24/2012 10:2 6 AM [facility] Impressions 12/24/2012 10:26 AM [facility]ER Postoperative changes as above. Narrative 12/24/2012 10:26 AM [facility]ER Portable chest x-ray performed 12/23/2012 at 2323. History: Status post liver transplant. ITP. A portable frontal view of the chest was obtained and is compared to prior chest x-ray of March 09, 2012. An esophageal catheter is seen with tip followed to the left upper quadrant. Multiple surgical clips are seen in the right upper quadrant consistent with prior liver transplant. There are new metallic clips in the left upper quadrant as well as a new left upper quadrant drain and a small amount of free intraperitoneal air or extraperitoneal air along the upper left flank. These findings suggest recent splenectomy. There is a small nodular density at the left base. This was present on the prior CT scan of 10/27/2012 and is of uncertain etiology. The lungs are otherwise clear. There is no evidence of pleural effusion or pneumothorax. The heart is within normal limits in size and the peripheral pulmonary vascularity is within normal limits. Procedure Note Jodi Foreman MD - 12/24/2012 Portable chest x-ray performed 12/23/2012 at 2323. History: Status post liver transplant. ITP. A portable frontal view of the chest was obtained and is compared to prior chest x-ray of March 09, 2012. An esophageal catheter is seen with tip followed to the left upper quadrant. Multiple surgical clips are seen in the right upper quadrant consistent with prior liver transplant. There are new metallic clips in the left upper quadrant as well as a new left upper quadrant drain and a small amount of free intraperitoneal air or extraperitoneal air along the upper left flank. These findings suggest recent splenectomy. There is a small nodular density at the left base. This was present on the prior CT scan of 10/27/2012 and is of uncertain etiology. The lungs are otherwise clear. There is no evidence of pleural effusion or pneumothorax. The heart is within normal limits in size and the peripheral pulmonary vascularity is within normal limits. IMPRESSION Postoperative changes as above. Adriane Smith MD DIAGNOSTIC IMAGING ORDERABLES * CULTURE URINE (12/23/2012 10:37 PM [facility]ER) Pathologist [facility] Culture SEE BELOW 12/26/2012 8:34 AM [facility]ER [facility] [employer] [facility] INTERFACES Comment: - Final - CULTURE No Growth (<100 CFU/mL) Urine specimen (specimen) URINE SPECIMEN COLLECTION, CATHETERIZED / Unknown 12/23/2012 10:37 PM [facility]ER 12/23/2012 10:46 PM [facility]ER Adriane Smith MD LAB - MICROBIOLOGY ORDERABLES [facility] [employer] [address] [place] [address], [facility] * URINALYSIS ROUTINE AUTO (12/23/2012 10:37 PM [facility]ER) Color UA Yellow Straw, Yellow, Dark Yellow 12/23/2012 11:01 PM [facility] Clarity UA Clear (none) 12/23/2012 11:01 PM [facility] Specific [place] UA 1.019 1.005 - 1.030 12/23/2012 11:01 PM [facility] pH UA 5.5 5.0 - 8.0 12/23/2012 11:01 PM [facility] Protein UA Negative Negative 12/23/2012 11:01 PM [facility] Blood UA Negative Negative 12/23/2012 11:01 PM [facility] Leukocyte UA Negative Negative 12/23/2012 11:01 PM [facility] Nitrite UA Negative Negative 12/23/2012 11:01 PM [facility] Glucose UA Negative Negative 12/23/2012 11:01 PM [facility] Ketone UA Negative Negative 12/23/2012 11:01 PM [facility] Bilirubin UA Negative Negative 12/23/2012 11:01 PM [facility] Urobilinogen UA 0.2 0.1 - 1.0 EU/dL 12/23/2012 11:01 PM [facility] WBC UA Auto 0-2 0-2, 2-5 #/hpf 12/23/2012 11:01 PM [facility] RBC UA Auto 0-2 0-2, 2-5 #/hpf 12/23/2012 11:01 PM [facility] Epithelial Cell UA Auto 0-2 0-2, 2-5 #/hpf 12/23/2012 11:01 PM [facility] Hyaline Casts UA Auto 0-2 None seen, 0-2 #/lpf 12/23/2012 11:01 PM [facility] Urine specimen (specimen) URINE / Unknown 12/23/2012 10:37 PM [facility] 12/23/2012 10:46 PM [facility] Adriane Smith MD LAB - URINALYSIS O RDERABLES Performing Organization Address City/State/[facility] Co de Phone Number [facility] [address] [place] [address] * PREPARE PLATELET PHERESIS UNIT(S) (12/23/2012 10:24 PM [facility]) Only the most recent of2 resultswithin the time period is included. Unit Donor # [id number] 12/23/2012 10:24 PM [facility] Product Code [id number] 12/23/2012 10:24 PM [facility] ABO Donor Type A 12/23/2012 10:24 PM [facility] Rh Type Unit POS 12/23/2012 10:24 PM [facility] Unit Status Transfused Unit 12/23/2012 10:24 PM [facility] Unit Description [id number] PLT, IRR, LR, APH 12/23/2012 10:24 PM [facility] Miscellaneous samples (specimen) BLOOD SPECIMEN / Unknown 12/23/2012 10:09 AM [facility] Gregory Fung MD LAB - BLOOD BANK OR DERABLES Performing Organization Address [facility] Co de Phone Number [facility] * (ABNORMAL) PT PTT PANEL (12/23/2012 10:23 PM [facility]ER) Only the most recent of2 resultswithin the time period is included. PT 14.0 12.2 - 14.5 sec 12/23/2012 10:53 PM [facility] INR 1.2 0.8 - 1.2 12/23/2012 10:53 PM [facility] PTT 24.1(L) 25.1 - 36.5 sec 12/23/2012 10:53 PM [facility] Blood specimen (specimen) BLOOD SPECIMEN / Unknown 12/23/2012 10:23 PM [facility] 12/23/2012 10:28 PM [facility] Adriane Smith MD LAB - COAGULATION ORDERABLES Performing Organization Address [facility] Co de Phone Number [facility] [address] [place] [address] * CULTURE MRSA (12/23/2012 2:08 PM PR[facility]ER) Culture SEE BELOW 12/24/2012 8:18 PM [facility]ER [facility] INTER[facility]AC[facility] Comment: - Final - NO growth of Staphylococcus aureus (MRSA) Miscellaneous samples (specimen) SPECIMEN FROM NASAL FOSSAE / Unknown 12/23/2012 2:08 PM [facility]ER 12/23/2012 2:14 PM [facility] Robert Cameron MD LAB - MICROBIOLOGY O RDERABLES Performing Organization Address City/[facility] Co de Phone Number [facility] [address] [place] [id number] * (ABNORMAL) ISTAT CG8+ PANEL NATHAN (12/23/2012 11:50 AM [facility]) pH Venous POCT 7.26(L) 7.35 - 7.45 pH 12/23/2012 6:01 PM [facility] pCO2 Venous POCT 44.5 35 - 48 mmHg 12/23/2012 6:01 PM [facility] pO2 Venous POCT 39(L) 83 - 108 mmHg 12/23/2012 6:01 PM [facility] HCO3 Venous 19.8(L) 23 - 28 mmol/L 12/23/2012 6:01 PM [facility] BE Venous -7(L) -2 - 2 mmol/L 12/23/2012 6:01 PM [facility] TCO2 Venous Calc POCT 21(L) 22 - 30 mmol/L 12/23/2012 6:01 PM [facility] O2 Saturation Venous POCT 65(L) 95 - 99 % 12/23/2012 6:01 PM [facility] Sodium Venous 166(HH) 136 - 146 mmol/L 12/23/2012 6:01 PM [facility] Potassium POCT 4.3 3.4 - 4.5 mmol/L 12/23/2012 6:01 PM [facility] Calcium Ionized Venous POCT 0.80(L) 1.12 - 1.32 mmol/L 12/23/2012 6:01 PM [facility] Glucose Venous POCT 143(H) 70 - 106 mg/dL 12/23/2012 6:01 PM [facility] Hemoglobin Venous POCT 16.7 12.0 - 17.6 g/dL 12/23/2012 6:01 PM [facility] Hematocrit Venous POCT 49.0 41.0 - 53.0 %PCV 12/23/2012 6:01 PM [facility] Site Nathan Line 12/23/2012 6:01 PM [facility] CPB iSTAT No 12/23/2012 6:01 PM [facility] Sample iSTAT VENOUS 12/23/2012 6:01 PM [facility] Blood specimen (specimen) BLOOD SPECIMEN / Unknown 12/23/2012 11:50 AM [facility] 12/23/2012 6:01 PM [facility]ER Narrative [facility] - 12/23/2012 6:01 PM [facility]ER NOTE: Reference ranges are for Arterial Blood. Gregory Fung MD LAB - POINT OF CARE ORDERABLES [facility] [place] [address] * GROSS + MICRO EXAM (STL) (12/23/2012 10:41 AM PR[facility] ST[facility]ER) Case Report Surgical Pathology Report ? Case: [id number] ? Authorizing Provider: ??Gregory Fung MD ?Ordering Provider: ?? Gregory Fung MD ? Ordering Location: ? [facility] ? Collected: ? 12/23/2012 10:41 AM ? Pathologist: ? Alejandro Bay MD ?Received: ?12/23/2012 ??2:50 PM ?Signed Out: ?12/29/2012 ??2:27 PM (Final) ? Specimens: ?? A) - Spleen, Accessory Spleen ? B) - Spleen ? 12/29/2012 2:27 PM [facility] Final Diagnosis A)ACCESSORY SPLEEN, RESECTION: - ACCESSORY SPLEEN. B)SPLEEN, 213 g. SPLENECTOMY: - VASCULAR AND SINUSOIDAL CONGESTION. - NEGATIVE FOR LYMPHOMA(SEE NOTE) 12/29/2012 2:27 PM [facility] Clinical History The patient is a 17-year-old male with history of ITP, neutropenia, history of liver transplant and autoimmune hepatitis who underwent open splenectomy. 12/29/2012 2:27 PM [facility] Gross Description The specimens are received fresh in two containers each labeled with the patient's name Beka Nichols. Specimen A, accessory spleen consists of one oval shaped dark purple soft tissue mass surrounded by a small amount of fibroadipose tissue measuring 1.8 x 2.5 x 0.8 cm. ??The cut surface reveals a dark brown to purple homogeneous surface. ??The specimen is entirely submitted in cassette A1. Specimen B, spleen consists of one spleen with smooth capsule, a white-pink nodular hard area measuring 2 x 0.7 x 0.3 cm. ??There is a small laceration on the capsule that has been stapled, and it measures 2.5 cm in length (located next to the hilum). ??The spleen measures 14 x 10 x 4 cm, and weights 213 g. ??Cut surface reveals a dark brown red homogeneous surface with prominent white nodule area measuring 0.1 cm in greatest diameter. ??Footwear Machinery Instructor sections from the specimen are submitted in cassette B1 and B2. ??A portion of the specimen is placed in RPMI for flow cytometry analysis. ?? SKS/scs 12/29/2012 2:27 PM [facility] Microscopic Description Sections of the spleen and accessory spleen show congested splenic parenchyma with reactive follicles. Follicles have well-defined marginal zones and prominent germinal centers with mitotic activity. No atypia or malignancy is seen. Footwear Machinery Instructor section of the grossly described nodular lesion shows a laminated area of collagen and fibrosis continuous with the splenic capsule. A portion of the specimen was submitted for flow cytometric analysis([id number]), and results showed no evidence of Non-Hodgkin Lymphoma. 12/29/2012 2:27 PM [facility] Flow Cytometry Summary NO EVIDENCE OF NON-HODGKIN LYMPHOMA (SEE REPORT FROM [facility] SIGNED BY DR. Subha DOUGHERTY) 12/29/2012 2:27 PM [facility] Reference SLIDES WERE SHOWN TO DR. Trupti DOUGHERTY OF [facility]: SHE CONCURS AND ADDS: HYPERPLASTIC WHITE PULP, LYMPHOCYTE DEPLETION, NUMEROUS MACROPHAGES, FOLLICULAR DENDRITIC CELLS AND SCATTERED APOPTOTIC CELLS. NO EVIDENCE OF LYMPHOMA. 12/29/2012 2:27 PM [facility] Disclaimer The performance characteristics of all immunohistochemical and indirect ??immunofluorescence stains (if any) cited in this report were determined by the Histopathology Laboratory of [facility] (immunohistochemistry ) or the Histology Laboratory of [facility] (indirect immunofluorescence) in compliance with CLIA `88 regulations. ??Some of these tests rely on the use of analyte-specific reagents and are subject to specific labeling requirements by the FDA. ??Such tests were developed by the ??Histopathology Laboratory of [facility] or the Histology Laboratory of [facility] and have not been cleared or approved by the FDA. ??The FDA has determined that such clearance or approval is not necessary. ??These tests are used for clinical purposes and should not be regarded as investigational or for research. ? This case has been personally reviewed and interpreted by the attending (teaching) pathologist. 12/29/2012 2:27 PM [facility] Synoptic Report 12/29/2012 2:27 PM [facility] Miscellaneous samples (specimen) ENTIRE SPLEEN / Unknown 12/23/2012 10:41 AM PR[facility] STITCHER 12/23/2012 2:50 PM [facility] Miscellaneous samples (specimen) ENTIRE SPLEEN / Unknown 12/23/2012 12:15 PM [facility]ER 12/23/2012 2:50 PM [facility]ER Gregory Fung MD LAB - PATHOLOGY/CYT OLOGY ORDERABLES Performing Organization Address City/[facility]/ZIP Co de Phone Number [facility] [address] [place] [address] * BLOOD TYPE ABO+ RH PANEL (12/23/2012 6:53 AM PRICK STITCHER) ABO A 12/23/2012 12:04 PM [facility]ER [facility] Rh Type Positive 12/23/2012 12:04 PM PRICK STITCHER [facility] Miscellaneous samples (specimen) BLOOD SPECIMEN / Unknown 12/23/2012 6:53 AM PRICK STITCHER 12/23/2012 7:08 AM PRICK STITCHER Adriane Smith MD LAB - BLOOD BANK O SARAH [facility] * ANTIBODY SCREEN (12/23/2012 6:53 AM PRICK STITCHER) Antibody Screen Negative 12/23/2012 12:04 PM [facility] STITCHER [facility] Miscellaneous samples (specimen) BLOOD SPECIMEN / Unknown 12/23/2012 6:53 AM PRICK STITCHER 12/23/2012 7:08 AM PR[facility] STITCHER Adriane Smith MD LAB - BLOOD BANK O SARAH [facility] * CT ABDOMEN AND PELVIS WITH IV CONTRAST (10/27/2012 8:49 AM PRICK STITCHER) Anatomical Region Laterality Modality Abdomen, Pelvis Computed Tomogra phy 10/27/2012 8:58 AM PRICK STITCHER Impressions 10/27/2012 9:57 AM PRICK STITCHER Post liver transplant without acute disease process. D: Dl Carpenter D.O. Narrative 10/27/2012 9:57 AM PRICK STITCHER EXAMINATION:CT scan of the abdomen, and pelvis with IV contrast. DATE: Oct 27, 2012 08:22:28 AM. HISTORY: Neutropenia. TECHNIQUE: Utilizing 1.25mm collimation images of the abdomen, and pelvis were obtained with 80 mL of Optiray-320 IV contrast. 5mm reconstructions were made with lung and soft tissue algorithms.Additional multiplanar reconstructions were made using the thin data set in the coronal plane. FINDINGS: Comparison is made with PET/CT on 03/23/2012 Multiple surgical clips are identified along the transplanted liver and one clip is seen within the abdomen. There is mild dilatation of a loop of small bowel which is unchanged since the previous PET/CT on 03/23/2012. The lung bases are clear without evidence infiltrates or nodular opacity. No pleural effusion, focal pleural thickening is identified. The transplanted liver is grossly normal. ??The pancreas, spleen, adrenals, and kidneys appear normal. There is no evidence of any intra-abdominal lymphadenopathy. No free air is identified. The pelvic viscera are normal. No free fluid within the abdomen or pelvis is identified. Procedure Note Joshua Scott Radhames - 10/27/2012 EXAMINATION:CT scan of the abdomen, and pelvis with IV contrast. DATE: Oct 27, 2012 08:22:28 AM. HISTORY: Neutropenia. TECHNIQUE: Utilizing 1.25mm collimation images of the abdomen, and pelvis were obtained with 80 mL of Optiray-320 IV contrast. 5mm reconstructions were made with lung and soft tissue algorithms.Additional multiplanar reconstructions were made using the thin data set in the coronal plane. FINDINGS: Comparison is made with PET/CT on 03/23/2012 Multiple surgical clips are identified along the transplanted liver and one clip is seen within the abdomen. There is mild dilatation of a loop of small bowel which is unchanged since the previous PET/CT on 03/23/2012. The lung bases are clear without evidence infiltrates or nodular opacity. No pleural effusion, focal pleural thickening is identified. The transplanted liver is grossly normal. The pancreas, spleen, adrenals, and kidneys appear normal. There is no evidence of any intra-abdominal lymphadenopathy. No free air is identified. The pelvic viscera are normal. No free fluid within the abdomen or pelvis is identified. IMPRESSION Post liver transplant without acute disease process. D: Dl Carpenter D.O. Ramana Ham MD CT ORDERABLES * LDH BLOOD (09/20/2012 8:00 AM PRICK STITCHER) Only the most recent of2 resultswithin the time period is included. LDH 231 140 - 260 U/L 09/20/2012 10:06 AM PRICK STITCHER [facility] Blood specimen (specimen) BLOOD SPECIMEN / Unknown 09/20/2012 8:00 AM PRICK STITCHER 09/20/2012 8:30 AM PRICK STITCHER Cindi Malloy MD LAB - CHEMISTRY ORDKleber HERNÁNDEZ Performing Organization Address [facility] Co de Phone Number [facility] [address] [place] [address] * GLUCOSE (04/20/2012 8:41 AM CDT) Only the most recent of3 resultswithin the time period is included. Glucose 84 70 - 105 mg/dL 04/20/2012 11:08 AM CDT [facility] Blood specimen (specimen) BLOOD SPECIMEN / Unknown 04/20/2012 8:41 AM CDT 04/20/2012 8:58 AM CDT Houston Chao MD LAB - CHEMISTRY ORDKleber HERNÁNDEZ Performing Organization Address [facility] de Phone Number [facility] [address] [place] [address] * (ABNORMAL) LYTES (NA K CL CO2) BLOOD (04/20/2012 8:41 AM CDT) Only the most recent of3 resultswithin the time period is included. Sodium 141 136 - 145 mmol/L 04/20/2012 11:07 AM T [facility] Potassium 3.9 3.5 - 5.1 mmol/L 04/20/2012 11:07 AM T [facility] Chloride 107 98 - 107 mmol/L 04/20/2012 11:07 AM T [facility] CO2 20(L) 22 - 29 mmol/L 04/20/2012 11:07 AM T [facility] Anion Gap 14 5 - 20 mmol/L 04/20/2012 11:07 AM T [facility] Blood specimen (specimen) BLOOD SPECIMEN / Unknown 04/20/2012 8:41 AM CDT 04/20/2012 8:58 AM CDT Houston Chao MD LAB - CHEMISTRY MACIE HERNÁNDEZ Performing Organization Address [facility] Co de Phone Number [facility] [address] [place] [address] * CREATININE BLOOD (04/20/2012 8:41 AM CDT) Only the most recent of3 resultswithin the time period is included. Creatinine 0.79 0.61 - 1.07 mg/dL 04/20/2012 11:07 AM [facility] eGFR by MDRD >60 >60 ml/min/1.7 3m2 04/20/2012 11:07 AM [facility] eGFR by MDRD >60 >60 ml/min/1.7 3m2 04/20/2012 11:07 AM T [facility] Blood specimen (specimen) BLOOD SPECIMEN / Unknown 04/20/2012 8:41 AM CDT 04/20/2012 8:58 AM CDT Houston Chao MD LAB - CHEMISTRY MACIE HERNÁNDZE Performing Organization Address [facility] Co de Phone Number [facility] [address] [place] [address] * BUN (04/20/2012 8:41 AM CDT) Only the most recent of3 resultswithin the time period is included. BUN 13.1 5.3 - 18.7 mg/dL 04/20/2012 11:07 AM T [facility] Blood specimen (specimen) BLOOD SPECIMEN / Unknown 04/20/2012 8:41 AM CDT 04/20/2012 8:58 AM CDT Houston Chao MD LAB - CHEMISTRY MACIE HERNÁNDEZ [facility] [address] [place] [address] * IMAGING/RADIOLOGY/XRAY RESULTS ORDER (04/11/2012 9:04 AM CDT) Only the most recent of2 resultswithin the time period is included. Anatomical Region Laterality Modality Other Narrative Transcriptions Document, Scanned - 04/11/2012 9:04 AM CDT Scanned Document IMAGING * ANGIOTENSIN CONVERT ENZYME BLOOD (04/05/2012 9:19 AM CDT) Angiotensin-Conv erting Enzyme 61 9 - 67 U/L 04/06/2012 5:27 PM CDT [facility] vzaar Comment: INTERPRETIVE INFORMATION: Angiotensin Converting Enzyme For related information, see [email or web address] Blood specimen (specimen) BLOOD SPECIMEN / Unknown 04/05/2012 9:19 AM CDT 04/05/2012 9:47 AM CDT Ramana Ham MD LAB - CHEMISTRY Amandeep SMITH [facility] [address] [place] [address] * CULTURE AFB+SMEAR (03/24/2012 6:30 PM CDT) Result [facility] Comment: Final ACCN COMMENT ??Left neck mass ACID FAST SMEAR No acid fast bacilli seen. No growth of Acid Fast Bacillus No growth of Acid Fast Bacillus Miscellaneous samples (specimen) TISSUE SPECIMEN / Unknown 03/24/2012 6:30 PM CDT 03/24/2012 7:24 PM CDT Narrative [facility] - 05/10/2012 1:29 PM CDT Performed By [facility];[address] [place] [address];[place] [address] Silverio Rivas MD LAB - MICROBIOLOGY O SARAH [facility] [place] [address] * GROSS + MICRO EXAM (03/24/2012 6:30 PM CDT) Only the most recent of7 resultswithin the time period is included. [facility] Clinical History [facility] Comment: The patient is a 17-year-old boy, status post liver transplant, who presents with left cervical lymphadenopathy. ??The patient underwent excision of a left neck lymph node to rule-out posttransplant lymphoproliferative disorder. Gross Description [facility] Comment: Submitted fresh in one container for gross and microscopic examination, labeled with the patient's name, Beka Nichols, and left neck mass, is a 2.8 x 1.7 x 1 cm cluster of matted pink-preston lymph nodes. ??The specimen is bisected, and cut surface reveals yellow-white, fibrous, lymphoid tissue. ??A portion of the specimen is submitted for flow cytometry. ??A portion of the specimen is submitted for cytogenetic analysis. ??Three air-dried and two cytology-fixed touch preparations are obtained. ??The remainder of the specimen is submitted in cassettes A1-A4. ??(CT/vr) Microscopic Examination [facility] Comment: A1: ??1 H+E, 1 GMS, and 1 AFB stained slides. ??3 Frazier and 2 H+E imprints. A2: ??1 H+E, 1 GMS, and 1 AFB stained slides. ?? A3 and A4: ??2 H+E stained slides. ?? All the sections show basically the same histopathologic changes consisting of diffuse and generalized collections of granulomas replacing most of the lymph nodes submitted. ??The granulomas are formed by numerous histiocytes mixed with mulinucleated giant cells. ??There is also extensive fibrosis of the lymph nodes. ??The GMS and AFB stains are negative for fungi and acid-fast and mycobacteria. ??(CS/rtc) Diagnosis [facility] Comment: DIAGNOSIS: LEFT NECK MASS: -CHRONIC GRANULOMATOUS LYMPHADENITIS, UNKNOWN ETIOLOGY (SEE MICROSCOPIC DESCRIPTION AND FLOW CYTOMETRY REPORT. COMMENT: ??The flow cytometry failed to reveal non-Hodgkin's lymphoma. (See complete report from [facility] signed by Dr. Viktor Up.) This case has been personally reviewed and interpreted by the attending (teaching) pathologist. [employer] GUICHO WATTS, [facility] Pathologist Alejandro johnson M.D. [facility] Electronically Signed By Alejandro johnson M.D. [facility] MASS / Unknown 03/24/2012 6: 30 PM CDT 03/24/2012 6:39 PM CDT Silverio Rivas MD LAB - PATHOLOGY/CYTO LOGY ORDERABLES Performing Organization Address [facility] Co de Phone Number [facility] [address] [place] [address] * CULTURE FUNGUS OTHER (03/24/2012 6:30 PM CDT) Result [facility] Comment: Final FUNGUS SMEAR No yeast or hyphae seen No growth of fungus Miscellaneous samples (specimen) TISSUE SPECIMEN / Unknown 03/24/2012 6:30 PM CDT 03/24/2012 7:24 PM CDT Narrative [facility] - 04/20/2012 10:11 AM CDT Performed By [facility];[address] [place] [address];[place] [address] Silverio Rivas MD LAB - MICROBIOLOGY O RDERABLES Performing Organization Address [facility] Co de Phone Number [facility] [address] [place] [id number] * CULTURE ANAEROBE (03/24/2012 6:30 PM CDT) Result [facility] Comment: Final ACCN COMMENT ??LEFT NECK MASS CULTURE PROPIONIBACTERIUM ACNES ??Rare growth Miscellaneous samples (specimen) TISSUE SPECIMEN / Unknown 03/24/2012 6:30 PM CDT 03/24/2012 7:24 PM CDT Narrative [facility] - 04/04/2012 9:06 AM CDT Performed By [facility];[address] [place] [address] Silverio Rivas MD LAB - MICROBIOLOGY O SARAH Performing Organization Address [facility] Co de Phone Number [facility] [address] [place] [address] * CULTURE WOUND (03/24/2012 6:30 PM CDT) Result [facility] Comment: Final ACCN COMMENT ??LEFT NECK MASS GRAM STAIN Heavy WBC's Moderate RBCs No organisms seen. CULTURE No growth Miscellaneous samples (specimen) TISSUE SPECIMEN / Unknown 03/24/2012 6:30 PM CDT 03/24/2012 7:24 PM CDT Narrative [facility] - 03/31/2012 7:28 AM CDT Performed By [facility];[address] [place] [address] Silverio Rivas MD LAB - MICROBIOLOGY O SARAH Performing Organization Address [facility] Co de Phone Number [facility] [address] [place] [address] * CHROMOSOME ANALYSIS TISSUE PANEL (03/24/2012 12:00 AM CDT) Chromosome Analysis Solid Tiss See Scanned Report [facility] Comment Cytogenetics See Scanned Report [facility] TISSUE SPECIMEN / Unknown 03/24/2012 Silverio Rivas MD LAB - PATHOLOGY/CYTO LOGY ORDERABLES Performing Organization Address [facility] Co de Phone Number [facility] [address] [place] [address] * CT SOFT TISSUE NECK WITH CONTRAST (03/18/2012 7:36 AM CDT) Anatomical Region Laterality Modality Head Computed Tomogra phy 03/18/2012 8:57 AM CDT Impressions 03/18/2012 8:57 AM CDT 1. 4.3 x 4.0 x 3.0 cm solid mass in the left submandibular space with associated left submental lymphadenopathy as well as bilateral cervical and supraclavicular lymphadenopathy. Based on the course of the attenuated left anterior facial vein the mass in the left submandibular space is most likely extraglandular. For this reason the first consideration in the differential diagnosis should be lymphoma. There is no evidence of lymph node necrosis or soft tissue edema to suggest an acute infectious process. 2. 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 The bony structures are otherwise intact. Narrative 03/18/2012 8:57 AM CDT Contrast-enhanced CT scan of the neck performed 03/18/2012. History: 17-year-old male with left neck mass. Helical axial sections were obtained from the skull base through the superior mediastinum following the administration of intravenous contrast. Coronal and sagittal reformatted images were created. No prior CT scans are available for comparison. There is a solid lobular mass in the region of the left submandibular gland measuring 4.3 cm in height x 4.0 cm in AP dimension x 3.0 cm in transverse dimension. The left anterior facial vein is somewhat attenuated but appears to run through the substance of this mass suggesting that the mass is extraglandular. A large prominent lymph node is seen just anteriorly in the left submental region measuring 1.7 x 2.1 x 1.7 cm in size. Lymphadenopathy is seen in the left supraclavicular space of the entire lymph node conglomerate measuring 4.9 x 2.6 x 1.9 cm in size. There is a somewhat smaller right supraclavicular lymph node conglomerate measuring 2.4 cm in AP dimension x 2.5 cm in transverse dimension. There is a prominent lymph node conglomerate at the apex of the right posterior cervical triangle portion of which extends to the apex of the right anterior cervical triangle. This lymph node conglomerate measures 3.5 x 3.6 x 1.3 cm in size. A 1.3 cm lymph node is seen posterior to the right carotid artery and internal jugular vein at the level of the true vocal cords. A 7 mm right paratracheal lymph node is seen. Additional smaller subcentimeter lymph nodes are seen anteriorly in the superior mediastinum. The right and left parotid glands, the right submandibular gland, the thyroid gland are normal in appearance. The airway is widely patent and midline in location. The tonsillar tissue is grossly unremarkable. Jugular veins and carotid arteries are widely patent as well. The visualized paranasal sinuses are clear. The orbital contents are grossly intact. The right lamina of C2 is under developed. There is a 1.8 cm bony structure paralleling the C2 spinous process arising from the the medial aspect of the malformed right C2 lamina and the spinous process. This has the appearance of a congenital anomaly. The visualized bony structures are otherwise intact. Procedure Note Jodi Foreman MD - 03/18/2012 Contrast-enhanced CT scan of the neck performed 03/18/2012. History: 17-year-old male with left neck mass. Helical axial sections were obtained from the skull base through the superior mediastinum following the administration of intravenous contrast. Coronal and sagittal reformatted images were created. No prior CT scans are available for comparison. There is a solid lobular mass in the region of the left submandibular gland measuring 4.3 cm in height x 4.0 cm in AP dimension x 3.0 cm in transverse dimension. The left anterior facial vein is somewhat attenuated but appears to run through the substance of this mass suggesting that the mass is extraglandular. A large prominent lymph node is seen just anteriorly in the left submental region measuring 1.7 x 2.1 x 1.7 cm in size. Lymphadenopathy is seen in the left supraclavicular space of the entire lymph node conglomerate measuring 4.9 x 2.6 x 1.9 cm in size. There is a somewhat smaller right supraclavicular lymph node conglomerate measuring 2.4 cm in AP dimension x 2.5 cm in transverse dimension. There is a prominent lymph node conglomerate at the apex of the right posterior cervical triangle portion of which extends to the apex of the right anterior cervical triangle. This lymph node conglomerate measures 3.5 x 3.6 x 1.3 cm in size. A 1.3 cm lymph node is seen posterior to the right carotid artery and internal jugular vein at the level of the true vocal cords. A 7 mm right paratracheal lymph node is seen. Additional smaller subcentimeter lymph nodes are seen anteriorly in the superior mediastinum. The right and left parotid glands, the right submandibular gland, the thyroid gland are normal in appearance. The airway is widely patent and midline in location. The tonsillar tissue is grossly unremarkable. Jugular veins and carotid arteries are widely patent as well. The visualized paranasal sinuses are clear. The orbital contents are grossly intact. The right lamina of C2 is under developed. There is a 1.8 cm bony structure paralleling the C2 spinous process arising from the the medial aspect of the malformed right C2 lamina and the spinous process. This has the appearance of a congenital anomaly. The visualized bony structures are otherwise intact. IMPRESSION 1. 4.3 x 4.0 x 3.0 cm solid mass in the left submandibular space with associated left submental lymphadenopathy as well as bilateral cervical and supraclavicular lymphadenopathy. Based on the course of the attenuated left anterior facial vein the mass in the left submandibular space is most likely extraglandular. For this reason the first consideration in the differential diagnosis should be lymphoma. There is no evidence of lymph node necrosis or soft tissue edema to suggest an acute infectious process. 2. 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 The bony structures are otherwise intact. Ramana Ham MD CT ORDERABLES * BARTONELLA HENSELAE ANTIBODY PANEL (03/15/2012 9:45 AM CDT) Bartonella henselae Antibody IgG <1-64 [facility] Bartonella henselae Antibody IgM < 1-16 [facility] Comment Ref Lab [facility] Comment: INTERPRETIVE INFORMATION: Bartonella henselae Ab, IgG ??Less than 1:64 ....... Negative: No significant level of ? Bartonella henselae IgG antibody ? detected. ??1:64 - 1:128 ......... Equivocal: Questionable presence ? of Bartonella henselae IgG ? antibody detected. Repeat testing ? in 10-14 days may be helpful. ??1:256 or greater ..... Positive: Presence of IgG ? antibody to Bartonella henselae ? detected, suggestive of current ? or past infection. A low positive suggests past exposure or infection, while high positive results may indicate recent or current infection, but are inconclusive for diagnosis. Seroconversion between acute and convalescent sera is considered strong evidence of recent infection. The best evidence for infection is significant change on two appropriately timed specimens where both tests are done in the same laboratory at the same time. Analyte specific reagents (ASR) are used in many laboratory tests necessary for standard medical care and generally do not require U.S. Food and Drug Administration (FDA) approval or clearance. This test was developed and its performance characteristics determined by [employer]. The U.S. Food and Drug Administration has not approved or cleared this test; however, FDA clearance or approval is not currently required for clinical use. The results are not intended to be used as the sole means for clinical diagnosis or patient management decisions. This test should not be regarded as investigational or for research use. INTERPRETIVE INFORMATION: Bartonella henselae Antibody, IgM ??Less than 1:16 ...... Negative: No significant level of ?Bartonella henselae IgM antibody ?detected. ??1:16 or greater ..... Positive: Presence of IgM antibody ?to Bartonella henselae detected, ?suggestive of current or recent ?infection. The presence of IgM antibodies suggest recent infection, low levels of IgM antibodies may occasionally persist for more than 12 months post infection. Analyte specific reagents (ASR) are used in many laboratory tests necessary for standard medical care and generally do not require U.S. Food and Drug Administration (FDA) approval or clearance. This test was developed and its performance characteristics determined by [facility]. The U.S. Food and Drug Administration has not approved or cleared this test; however, FDA clearance or approval is not currently required for clinical use. The results are not intended to be used as the sole means for clinical diagnosis or patient management decisions. This test should not be regarded as investigational or for research use. Blood specimen (specimen) BLOOD SPECIMEN / Unknown 03/15/2012 9:45 AM CDT 03/15/2012 9:55 AM CDT Narrative [facility] - 03/19/2012 1:50 PM CDT Performed By [facility] ? [address] ? [place], [place] [address] 1 Ramana Ham MD LAB - SEROLOGY OR DERABLES Performing Organization Address City/State/[facility] Co de Phone Number [facility] [address] [place] [address] * HISTOPLASMA ANTIBODY PANEL (03/15/2012 9:45 AM CDT) Histoplasma mycelial Antibody <1-8 <1 - 8 [facility] Histoplasma Yeast Antibody <1-8 <1 - 8 [facility] Comment Ref Lab [facility] Comment: INTERPRETIVE INFORMATION: ??Histoplasma Antibodies by Complement Fixation (CF) An antibody titer greater than or equal to 1:8 is generally considered presumptive evidence of histoplasmosis. Greater than 1:32 or rising titers indicate strong presumptive evidence of histoplasmosis. The yeast phase is regarded as more sensitive. Approximate 90-95 percent of cases have positive titers to one or both antigens. Titers to mycelial antigen are higher in chronic infection. Cross reactions, usually at lower titers, may occur with other fungal disease. Rising titers suggest progression of infection. Skin tests in individuals previously exposed may cause titer elevation in 17-20 percent of cases. Blood specimen (specimen) BLOOD SPECIMEN / Unknown 03/15/2012 9:45 AM CDT 03/15/2012 9:55 AM CDT Narrative [facility] - 03/20/2012 4:22 AM CDT Performed By [facility] ? [address] ? [place], [place] [address] 1 Ramana Ham MD LAB - SEROLOGY OR DERABLES [facility] [address] [place] [place] [address] * BARTONELLA HUMPHREY ANTIBODY PANEL (03/15/2012 9:45 AM CDT) Bartonella humphrey Antibody IgG <1-64 [facility] Bartonella humphrey Antibody IgM < 1-16 [facility] Comment Ref Lab [facility] Comment: INTERPRETIVE INFORMATION: Bartonella humphrey Antibody, IgG ??Less than 1:64 ....... Negative: No significant level of ? Bartonella humphrey IgG antibody ? detected. ??1:64 - 1:128 ........ ??Equivocal: Questionable presence ? of Bartonella humphrey IgG ? antibody detected. Repeat testing ? in 10-14 days may be helpful. ??1:256 or greater ..... Positive: Presence of IgG ? antibody to Bartonella humphrey ? detected, suggestive of current ? or past infection. A low positive suggests past exposure or infection, while high positive results may indicate recent or current infection, but is inconclusive for diagnosis. Seroconversion between acute and convalescent sera is considered strong evidence of recent infection. The best evidence for infection is a significant change on two appropriately timed specimens where both tests are done in the same laboratory at the same time. Analyte Specific Reagents (ASR) are used in many laboratory tests necessary for standard medical care and generally do not require U.S. Food and Drug Administration (FDA)approval or clearance. This test was developed and its performance characteristics determined by [facility]. It has not been approved or cleared by the U.S. Food and Drug Administration. This test should not be regarded as investigational or for research use. INTERPRETIVE INFORMATION: Bartonella humphrey Ab, IgM ??Less than 1:16 ...... Negative-No significant level of ?Bartonella humphrey IgM antibody ?detected. ??1:16 or greater ..... Positive-Presence of IgM antibody ?to Bartonella humphrey detected, ?suggestive of current or recent ?infection. The presence of IgM antibodies suggests recent infection. Low levels of IgM antibodies may occasionally persist for more than 12 months post-infection. Analyte specific reagents (ASR) are used in many laboratory tests necessary for standard medical care and generally do not require U.S. Food and Drug Administration (FDA) approval or clearance. This test was developed and its performance characteristics determined by [facility]. The U.S. Food and Drug Administration has not approved or cleared this test; however, FDA clearance or approval is not currently required for clinical use. The results are not intended to be used as the sole means for clinical diagnosis or patient management decisions. This test should not be regarded as investigational or for research use. BLOOD SPECIMEN / Unknown 03/15/2012 9:45 AM CDT 03/15/2012 9:55 AM CDT Narrative [facility] - 03/19/2012 1:49 PM CDT Performed By [facility] ? [address] ? [place], [place] [address] 1 Ramana Ham MD LAB - SEROLOGY OR DERABLES Performing Organization Address City/State/[facility] Co de Phone Number [facility] [address] [place] [address] * NADINE-BAR VIRUS PCR QUALITATIVE (03/09/2012 2:40 PM CDT) Only the most recent of4 resultswithin the time period is included. Pathologist [facility] Nadine-Borrego Virus PCR EBV DNA Detected Not Detect [facility] Comment EBV PCR [facility] Comment: This assay has a lower limit of detection of 3500 copies per ml(log 10 value 3.5). Accurate quantitation is available in the range of 7500 copies per ml to 9,250,000 copies per ml (3.8 log 10 copies per ml to 6.97 log 10 copies per ml). Specimens with copy numbers below 7500 copies per ml will be reported as Positive for EBV DNA but below the level of accurate quantitation. Results from different laboratories may not be comparable. ??EBV levels can vary by speimen type: [facility] uses whole blood which is more sensitive than plasma for detection of EBV DNA. ??Also, the lack of a universal quantitative standard contributes to interlaboratory variability. Therefore, caution should be exercised when attempting to compare results obtained from different laboratories. It is recommended that for tracking relative changes in EBV DNA levels in particular patient, the same laboratory should test the specimen. There is no consensus as to the absolute viral DNA copy number that denotes EBV-related disease. ??The particular patient population e.g. solid-organ vs. hematopoietic transplant recipient, the lack of a universal quantitative standard, chemotherapy, antiviral therapy, and the specimen type affect EBV levels. ??A rapid rise in serially monitored EBV DNA level may be clinically more significant than an absolute level. Monitoring EBV levels may also be helpful in assessing the effect of theraputic interventions to decrease EBV levels; levels should decline with successful intervention. This test was developed and its characteristics determined by [facility]. ??It has not been cleared or approved by the U.S. Food and Drug Administrations. ??However, the FDA has determined that such clearance or approval is not necessary. ??This test is used for clinical purposes it should not be regarded as investigational or for research. ??This laboratory is certified under the Clinical Laboratory Improvement Amendments of 1988(CLIA-88) as qualified to perform high complexity clinical laboratory testing. Comment 6379 copies/ ml whole blood [facility] Blood specimen (specimen) BLOOD SPECIMEN / Unknown 03/09/2012 2:40 PM CDT 03/09/2012 2:49 PM CDT Rossy Wheatley MD LAB - MICROBIOLOGY O RDERABLES Performing Organization Address City/State/[facility] Co de Phone Number [facility] [facility] [place] [address] * NUTRITION CONSULT (03/09/2012 9:31 AM CDT) Narrative Ai Torres RD/LD - 03/09/2012 9:31 AM CDT [facility] ? 03/09/2012 ??9:31 AM Patient has been evaluated by clinical nutrition and does not require nutrition intervention at this time. Procedure Note Ai Torres RD/LD - 03/09/2012 9:31 AM CDT Patient has been evaluated by clinical nutrition and does not requirenutrition intervention at this time. Tesha Naik MD INPATIENT ANCILLARY CONSULT * (ABNORMAL) CBC W MANUAL DIFFERENTIAL (03/08/2012 4:15 PM CDT) Only the most recent of23 resultswithin the time period is included. WBC 9.54 4.5 - 11.0 K/cumm [facility] RBC 4.95 4.50 - 5.90 mill/cumm [facility] Hemoglobin 15.8 13.5 - 17.5 gm/dl [facility] Hematocrit 44.2 41.0 - 53.0 % [facility] MCV 89.3 80.0 - 100.0 cu microns [facility] MCH 31.9 26.0 - 34.0 uug [facility] MCHC 35.7 31.0 - 37.0 % [facility] RDW 11.6 % [facility] MPV 10.2 fl [facility] Platelet Count 147 100 - 400 K/cumm [facility] Comment Manual Diff Done [facility] Band % Manual 3 % [facility] Neutrophils % Manual 69 43 - 70 % [facility] Lymphocytes % Manual 10(L) 22 - 41 % [facility] Monocytes % Manual 12 2 - 13 % [facility] Eosinophils % Manual 1 0 - 6 % [facility] Atypical Lymphocyte % Manual 5 % [facility] RBC Morphology Normal [facility] BLOOD SPECIMEN / Unknown 03/08/2012 4:15 PM CDT 03/08/2012 4:19 PM CDT Adriane Michaels MD LAB - HEMATOLOGY O RDERABLES Performing Organization Address City/State/[facility] Co de Phone Number [facility] [address] [place] [address] * US HEAD NECK TISSUES B - SCAN REAL TIME (03/08/2012 1:44 PM CDT) Anatomical Region Laterality Modality Head Ultrasound 03/08/2012 2:00 PM CDT Narrative 03/08/2012 2:00 PM CDT Survey sonography of the right temporal region dated March 08, 2012 01:44:37 PM. History: Cellulitis evaluate for abscess. Multiple real-time sonographic images of the right temporal region are obtained. There is irregular focal fluid collection in the subcutaneous tissues which appears to be somewhat thickened. There is a suggestion of a sinus tract extending towards the skin surface. There is some peripheral hyperemia noted. These findings are most consistent with a subcutaneous abscess. Procedure Note Joshua Scott - 03/08/2012 Survey sonography of the right temporal region dated March 08, 2012 01:44:37 PM. History: Cellulitis evaluate for abscess. Multiple real-time sonographic images of the right temporal region are obtained. There is irregular focal fluid collection in the subcutaneous tissues which appears to be somewhat thickened. There is a suggestion of a sinus tract extending towards the skin surface. There is some peripheral hyperemia noted. These findings are most consistent with a subcutaneous abscess. Adriane Michaels MD US ORDERABLES * ACQUIRED IMMUNE DEFICIENCY PANEL (12/10/2011 8:10 AM PRICK STITCHER) Only the most recent of3 resultswithin the time period is included. [facility] AIDS/ARC Panel See Scanned Report [facility] BLOOD SPECIMEN / Unknown 12/10/2011 8:10 AM PRICK STITCHER 12/10/2011 8:25 AM PRICK STITCHER Narrative Resulting Agency Comment Performed By [facility] Flow Cytometry Laboratory ? [facility] Dept of Path. Flow Cytometry ? [address] [facility] Shivani Fernandez MD LAB - HEMATOLOGY ORD ERABLES Performing Organization Address [facility] de Phone Number [facility] [address] [place] [address] * BILIRUBIN DIRECT (03/24/2011 7:50 AM CDT) Only the most recent of4 resultswithin the time period is included. [facility] Bilirubin Direct ND 0.0 - 0.3 mg/dl [facility] BLOOD SPECIMEN / Unknown 03/24/2011 7:50 AM CDT 03/24/2011 9:40 AM CDT Ramana Ham MD LAB - CHEMISTRY O RDERABLES Performing Organization Address [facility] de Phone Number [facility] [address] [place] [address] * BLOOD GASES VENOUS + COOX PANEL (08/11/2010 9:00 AM CDT) [facility] pH Venous 7.306 pH Units [facility] pCO2 Venous 57.2 mm Hg [facility] pO2 Venous <30.0 mm Hg [facility] Hemoglobin Venous 17.0 gm/dl [facility] O2 Saturation Venous 48.5 % [facility] Oxyhemoglobin Venous 47.9 % [facility] Carboxyhemoglobin Venous 0.7 % [facility] Methemoglobin Venous 0.6 % [facility] O2 Content Venous 11.4 mg/dl [facility] Base Excess Venous 2.0 mmol/L [facility] P50 Venous 28.09 mm Hg [facility] Specimen Type/Condition Blood Gas Venous [facility] BLOOD SPECIMEN / Unknown 08/11/2010 9:00 AM CDT 08/11/2010 9:12 AM CDT Ramana Ham MD LAB - BLOOD GASES ORDERABLES Performing Organization Address City/State/[facility] Co de Phone Number [facility] [address] [place] [address] * ERYTHROPOIETIN (07/10/2010 8:25 AM CDT) Erythropoietin 4 mU/ml [facility] Comment Ref Lab [facility] Comment: INTERPRETATION: Erythropoietin Normal serum concentrations of erythropoietin for 95% of individuals with normal hematocrits range from 4-27 mU/mL. As the hematocrit is lowered by iron deficiency, aplastic, or hemolytic anemia, the concentration of erythropoietin increases as shown in the graph below. In the absence of anemia, elevated concentrations are seen in renal tumors, as a manifestation of renal transplant rejection, and in secondary polycythemia. Low values may be observed in hemochromatosis. ?Expected Erythropoietin Concentrations in Patients ? with Uncomplicated Anemia ?? Erythropoietin (mU/mL) ?100,000 - + ?+ ? 10,000 - +....... ?+ ....... ?1,000 - + ?....... ?+ ? ........ ?100 - + ? ........ ?+ ?........ ? 10 - + ?........ ?+---+---+---+---+---+---+ ? 10 ?? 20 ??30 ??40 ??50 ??60 ??70 ?(Hematocrit %) ?(Contributions To Nephrology 1988:66:54-62) Decreased erythropoietin concentrations with an elevated hematocrit are observed in patients with polycythemia rubra vera, and with a decreased hematocrit in patients with HIV infection who are receiving AZT. ??Patients on AZT who have anemia and erythropoietin concentrations of less than or equal to 500 mU/mL may benefit from therapy with recombinant EPO ([id number]). BLOOD SPECIMEN / Unknown 07/10/2010 8:25 AM CDT 07/10/2010 8:33 AM CDT Narrative [facility] - 07/13/2010 11:10 AM CDT 1 Resulting Agency Comment Performed By [facility] ? [address] ? [place], [place] [address] Ramana Ham MD LAB - CHEMISTRY O RDERAVERN Performing Organization Address City/[facility]/ZIP Co de Phone Number [facility] [place] [address] * PLATELET ASSOCIATED ANTIBODY DIRECT PANEL (04/15/2010 8:20 AM CDT) Platelet Associated Antibody IgG Direct Negative Negative [facility] Platelet Associated Antibody IgM Direct Negative Negative [facility] Comment Ref Lab [facility] Comment: INTERPRETATION: Platelet Assoc Antibodies, Direct Assay Negative (IgG and IgM): No excess antibodies were associated with the patient's platelets. An immune cause of thrombocytopenia is unlikely. Positive (IgG and/or IgM): An increase in platelet associated immunoglobulin is noted. An immune cause of thrombocytopenia should be considered. However, many conditions can result in an increase in platelet associated antibodies; for example, IgM rheumatoid factor antibodies. Strong Positive (IgG and/or IgM): A definite increase in platelet associated immunoglobulin is noted and an immune cause of thrombocytopenia should be considered. However, many conditions can result in an increase in platelet associated antibodies; for example, IgM rheumatoid factor antibodies. Analyte Specific Reagents (ASR) are used in many laboratory tests necessary for standard medical care and generally do not require FDA approval. This test was developed and its performance characteristics determined by [facility]. It has not been cleared or approved by the U.S. Food and Drug Administration. This test should not be regarded as investigational or for research use. BLOOD SPECIMEN / Unknown 04/15/2010 8:20 AM CDT 04/15/2010 8:31 AM CDT Narrative Resulting Agency Comment Performed By [facility] ? [address] ? [place], [place] [address] Ramana Ham MD LAB - CHEMISTRY O SARAH Performing Organization Address City/[facility]/ZIP Co de Phone Number [facility] * PARVOVIRUS B19 PCR (01/24/2010 9:45 AM CDT) Parvovirus B19 PCR Not Detected [facility] Source Parvovirus BLOOD [facility] Comment Ref Lab [facility] Comment: NOT DETECTED - A negative result does not rule out the presence of PCR inhibitors in the patient specimen or assay specific nucleic acid in concentrations below the level of detection by the assay. Test Information: Parvovirus B-19, by PCR This test was developed and its performance characteristics determined by [facility]. The U.S. Food and Drug Administration has not approved or cleared this test; however, FDA clearance or approval is not currently required for clinical use. The results are not intended to be used as the sole means for clinical diagnosis or patient management decisions. BLOOD SPECIMEN / Unknown 01/24/2010 9:45 AM CDT Narrative [facility] - 01/28/2010 8:06 AM CDT 1 Resulting Agency Comment Performed By [facility] ? [address] ? [place], [place] [address] Ramana Ham MD LAB - CHEMISTRY O RDERABLES Performing Organization Address [facility] Co de Phone Number [facility] * PTT (01/22/2010 10:00 AM CDT) PTT 29 23-36 seconds seconds [facility] BLOOD SPECIMEN / Unknown 01/22/2010 10:00 AM CDT Ramana Ham MD LAB - COAGULATION ORDERABLES Performing Organization Address [facility]/ZIP Co de Phone Number [facility] * PT-INR (01/22/2010 10:00 AM CDT) PT 13.3 12.2-14.5 seconds seconds [facility] INR 1.0 0.8 - 1.2 [facility] BLOOD SPECIMEN / Unknown 01/22/2010 10:00 AM CDT Ramana Ham MD LAB - COAGULATION ORDERABLES Performing Organization Address [facility]/State/ZIP Co de Phone Number [facility] * CULTURE FUNGUS SKIN HAIR NAILS (11/18/2009 10:00 AM PRICK STITCHER) Report [facility] Comment:Final - CULTURE * No Fungal Growth ENTIRE SCALP / Unknown 11/18/2009 10:00 AM PRICK STITCHER Ramana Ham MD LAB - MICROBIOLOG Y ORDERABLES Performing Organization Address [facility]/ZIP Co de Phone Number [facility] * BONE MARROW BIOPSY (06/04/2009 1:10 PM CDT) Result CASE NUMBER [id number] [facility] REPORT Comment: ORDERING PHYSICIAN ??RAMANA HAM SPECIMEN TYPE ?Aspir / Biopsy CLINICAL HISTORY ? The patient is a 14-year-old boy, rule out myelodysplasia. PERIPHERAL BLOOD ?Peripheral Blood ? Quantitative Differential ? WBC Differential WBC ?3.69 ??x10E3/ul ? % Blasts RBC ?5.46 ??x10E6/ul ? % Progranulocytes / Myelocytes Hgb ?16.3 ??mg/dl ?% Metamyelocytes Hct% ? 44.9 ??% ? 7 ??% Band Granulocytes MCV ?82.2 ??fl ?5 ??% Segmented Granulocytes MCH ?29.9 ??pg ?4 ??% Eosinophils MCHC ? 36.3 ??% ?% Basophils Retic Count ?% ?37 ??% Lymphocytes Plat Count ? 47 ??X10E3/ul ? 42 ??% Monocytes ? 5 ??% Variant Lymphs ?% Other ? 100 ??% TOTAL COMMENTS ? BONE MARROW SMEARS Granulocyte Series ? Erythrocyte Series ?% Myeloblasts ?% Pronormoblasts ?3 % Progranulocytes ? 1 ??% Basophilic Normoblasts ?? 10 % Myelocytes ? 14 ??% Poly Normoblasts ?7 % Metamyelocytes ? 18 ??% Ortho Normoblasts ?? 30 % Band Granulocytes ?33 ??% TOTAL ?4 % Segmented Granulocytes ?7 % Eosinophils / Precursors ?% Basophils / Precursors ? Other Series ?? 61 % TOTAL ?% Lymphoblasts ? % Prolymphocytes ?6 ??% Lymphocytes ? % Monoblasts ? % Promonocytes ? % Monocytes ? % Plasma Cells / Precursors ? % Other ?6 ??% TOTAL Megakaryocytes ?Present Histiocytes and Macrophages ?? Are present but not increased in number Cellularity ?80% M E Ratio ?2 1 Clot Sections ?? Show normocellular particles. ??Bone marrow ?biopsy is normocellular (70%). ??There is ?no fibrosis or obvious abnormality. ??(CSA/lw) DIAGNOSIS ? DIAGNOSIS ?? BONE MARROW ASPIRATE ?-NORMOCELLULAR MARROW. ?-NO PATHOLOGIC DIAGNOSIS. ?BONE MARROW CORE BIOPSY ?-NORMOCELLULAR MARROW. ?-NO PATHOLOGIC DIAGNOSIS. This case has been personally reviewed and interpreted by the attending (teaching) pathologist. Carbon Cleaner ? Brendon Vega PATHOLOGIST ?Alejandro Bay M.D. ELECTRONICALLY BREEZY Alejandro Bay MISCELLANEOUS SAMPLES / Unknown 06/04/2009 1:10 PM CDT 06/04/2009 1:36 PM CDT Historical Provider LAB - PATHOLOGY/C YTOLOGY ORDERABLES [facility] REPORT Care Teams Egg Processor Relationship Specialty Start Date End Date Vilma Spangler MD [address] [place] [address] PCP - General 01/05/11
--- OUTSIDE RECORDS SUMMARY | 2024-10-28 05:55 | XMS_ITS | Encounter Summary ---
Author Organization [facility] Address [address] [place] [address] Care Team Providers Care Green Chain Operator Name Role Phone Vilma Spangler MD Primary Care Provider [phone] Reason for Visit * Reason Onset Date Comments Results 09/26/2013 Encounter Details Date Type Department Care Team (Late st Contact Info) Description 09/26/2013 Telephone [facility] - Transplant Services [address] [place] [id number] Batool Mcdermott, RN Results Social History Tobacco Use Types Packs/Day Years Used Date Smoking Tobacco: Never Smokeless Tobacco: Never Alcohol Use Standard Drinks/Week Comments No 0 (1 standard drink = 0.6 oz pur e alcohol) Sex and Gender Information Value Date Recorded Sex Assigned at Not on file Gender Identity Not on file Sexual Orientation Not on file documented as of this encounter Miscellaneous Notes * Telephone Encounter - Batool Mcdermott, RN - 09/26/2013 1:35 PM TASTE TESTER Received lab results from Somewhere. Copy faxed to Dr. Chavez's office. Called Beka's mom to give lab results. Liver transplant labs look good. Appointments with Hepatology and Hematology at [facility] need omar rescheduled to November. Mom states Beka's work schedule is very busy in October. Told mom I would call her once appointments are made. Mom verbalized understanding. E TESTER documented in this encounter Plan of Treatment Not on file documented as of this encounter Visit Diagnoses Not on filedocumented in this encounter Care Teams Green Chain Operator Relationship Specialty Start Date End Date Vilma Spangler MD [address] [place] [id number] PCP - General 01/05/11 documented as of this encounter
--- OUTSIDE RECORDS SUMMARY | 2024-10-28 05:55 | XMS_ITS | Encounter Summary ---
Author Organization [facility] Address [address] [place] [address] Care Team Providers Care Program Support Assistant Name Role Phone Vilma Spangler MD Primary Care Provider [phone] Encounter Details Date Type Department Care Team (Late st Contact Info) Description 11/29/2013 Hospital Outpatient Visit [facility] Default Department Kaycee Alexandre MD [address] [place] [address] [address] [place] [address] Discharge Disposition: Home or Self Care Social History Tobacco Use Types Packs/Day Years Used Date Smoking Tobacco: Never Smokeless Tobacco: Never Alcohol Use Standard Drinks/Week Comments No 0 (1 standard drink = 0.6 oz pur e alcohol) Sex and Gender Information Value Date Recorded Sex Assigned at Not on file Gender Identity Not on file Sexual Orientation Not on file documented as of this encounter Plan of Treatment Not on file documented as of this encounter Visit Diagnoses Not on filedocumented in this encounter Care Teams Program Support Assistant Relationship Specialty Start Date End Date Vilma Spangler MD [address] [address] PCP - General 01/05/11 documented as of this encounter
--- OUTSIDE RECORDS SUMMARY | 2024-10-28 05:55 | XMS_ITS | Encounter Summary ---
Author Organization [facility] Address [address] [place] [address] Care Team Providers Care Half Section Ironer Name Role Phone Vilma Spangler MD Primary Care Provider [phone] Reason for Visit * Reason Onset Date Comments LABS ONLY 06/28/2013 Encounter Details Date Type Department Care Team (Late st Contact Info) Description 06/28/2013 Telephone [facility] at [address] [address] Anastasia Fox, RN LABS ONLY Social History Tobacco Use Types Packs/Day Years [...] encounter Miscellaneous Notes * Telephone Encounter - Anastasia Fox RN - 06/28/2013 10:00 AM CDT Mother requesting for patient to get local labs on Wednesday, 07/01 versus Beka missing work on or Xin appt. Confirmed with Dr. Chavez who stated ok. Faxed order for CBC and IgG to [facility] in [place], [place]. Fax number [phone]. Xin appt canceled for 07/04. documented in this encounter Plan of Treatment Not on file documented as of this encounter Visit Diagnoses Not on filedocumented in this encounter Care Teams Half Section Ironer Relationship Specialty Start Date End Date Vilma Spangler MD [address] [facility] [address] [place] [address] PCP - General 01/05/11 documented as of this encounter
--- OUTSIDE RECORDS SUMMARY | 2024-10-28 05:55 | XMS_ITS | Encounter Summary ---
Author Organization [facility] Address [address] [facility] [place] [address] Care Team Providers Care Buckle Sorter Name Role Phone Vilma Spangler MD Primary Care Provider [phone] Reason for Visit * Reason Onset Date Comments MEDICATION REFILL 07/18/2013 Encounter Details Date Type Department Care Team (Late st Contact Info) Description 07/18/2013 Refill [facility] - [address] [address] Felipe Mon MD [address] [place] [id number] MEDICATION REFILL Social History Tobacco Use Types Packs/Day Years [...] documented as of this encounter Visit Diagnoses Diagnosis Liver replaced by transplant (HCC)- Primary Liver replaced by transplant documented in this encounter Care Teams Buckle Sorter Relationship Specialty Start Date End Date Vilma Spangler MD [address] [address] PCP - General 01/05/11 documented as of this encounter
--- OUTSIDE RECORDS SUMMARY | 2024-10-28 05:55 | XMS_ITS | Encounter Summary ---
Author Organization [facility] Address [address] [place] [address] Care Team Providers Care Value Advisor Name Role Phone Vilma Spangler MD Primary Care Provider [phone] Encounter Details Date Type Department Care Team (Late st Contact Info) Description 07/06/2013 8:59 AM CDT - 07/06/2013 11:59 PM CDT Hospital Encounter [facility] at [address] [address] Philip Chavez MD [address] [place] [id number] Discharge Disposition: Home or Self Care Social [...] on file documented as of this encounter Last Filed Vital Signs Vital Sign Reading Time Taken Comments Blood Pressure 104/53 07/06/2013 4:30 PM CDT Pulse 76 07/06/2013 4:30 PM CDT Temperature 37.1 ??C (98.8 ??F) 07/06/2013 4:30 PM CD T Respiratory Rate 16 07/06/2013 4:30 PM CDT Oxygen Saturation 100% 07/06/2013 9:06 AM CDT Inhaled Oxygen Concentration - - Weight 54 kg (119 lb) 07/06/2013 9:06 AM CDT Height 169.6 cm (5' 6.77 ) 07/06/2013 9:06 AM CD T Body Mass Index 18.77 07/06/2013 9:06 AM CDT documented in this encounter Discharge Instructions * Patient Instructions* Ileana Castillo RN - 07/06/2013 4:33 PM CDT Discharge Instructions for: Beka Nichols No discharge procedures on file. The following belonging have been returned to you If your child has any worsening of his or her condition, please call your primary care doctor (or their exchange if after hours) or return to the ED if your primary care doctor cannot be reached. 07/06/2013 documented in this encounter Medications at Time of Discharge Medication Sig Dispensed Refills Start Date End Date acetaminophen (TYLENOL) 325 MG tablet Take 325 mg by mouth every 4 hours as needed. Maximum allowable Acetaminophen amount = 4 Grams (4000 mg) / 24 hours. predniSONE (DELTASONE) 20 MG tablet Take 10 mg by mouth once daily. 08/08/2013 predniSONE (DELTASONE) 20 MG tablet Take 2 Tabs by mouth 2 times daily for 14 days. 56 Tab 0 07/14/2013 07/28/2013 sulfamethoxazole-trim ethoprim (BACTRIM DS; SEPTRA DS) 800-160 MG tabletIndications:Silvia er replaced by transplant ([facility]) Take 1 Tab by mouth once daily. 30 Tab 4 01/30/2013 07/18/2013 tacrolimus (PROGRAF) 0.5 MG capsuleIndications:Li ruben replaced by transplant ([facility]) Take 1 Cap by mouth 2 times daily. 60 Cap 4 01/30/2013 07/18/2013 documented as of this encounter Progress Notes * Anastasia Fox RN - 07/14/2013 9:38 AM CDT Received CBC results from [facility] collected on 07/13/13. Plt [address] Chavez to notify family and schedule patient for visit next week. * Philip Chavez MD - 07/07/2013 9:14 AM CDT Hematology/Oncology Progress Note Name: Beka Nichols Date: 07/06/13 PCP: Vilma Spangler Diagnosis: Autoimmune Thrombocytopenia/Autoimmune Neutropenia Liver Transplant Lymphadenopathy Splenectomy- Dec 2012 No Known Allergies Current Outpatient Prescriptions on File Prior to Encounter Medication Status Sig Dispense Refill ??? tacrolimus (PROGRAF) 0.5 MG capsule Active Take 1 Cap by mouth 2 times daily. 60 Cap 4 ??? sulfamethoxazole-trimethoprim (BACTRIM DS; SEPTRA DS) 800-160 MG tablet Active Take 1 Tab by mouth once daily. 30 Tab 4 ??? acetaminophen (TYLENOL) 325 MG tablet Active Take 325 mg by mouth every 4 hours as needed. Maximum allowable Acetaminophen amount = 4 Grams (4000 mg) / 24 hours. No current facility-administered medications on file prior to encounter. Review of Systems: 1) General Fever: no Wt/appetite change: no 2) Hem Bruising: denies Other:no 3) Skin Rash: No 4) ENT Congestion:no Rhinorrhea: no Epistaxis: no Sore Throat: no Change in Hearing: no Earache: no Stomatitis: no 5) Resp/CV Shortness of Breath: no Chest Pain: no Cough:no Palpitation: no 6) GI Pain: no Jaundice: no Nausea: no Vomiting: no Diarrhea: no Constipation: no 7) Frequency: no Dysuria: no 8) Musculo-skeletal Pain: no Swelling/Edema: no Change in ROM: no Cyanosis: no 9) Neuro Headache: no Weakness: no 10) Psych 11) Allergy/Immun no 12) Pain no 13) Nutritional Status good Interval History Beka recently obtained a CBC which showed markedly lower platelet count and WBC from his recent baseline. He has had a tender right cervical node just behind the mandible. No fevers. Otherwise feels OK. Appetite has been OK. No bleeding. No rash Past Medical History: unchanged Family Medical History: unchanged Physical Exam Constitutional: BP 104/53 Pulse 76 Temp 98.8 ??F Resp 16 Ht 1.696 m (5' 6.77 ) Wt 53.978 kg (119 lb) BMI 18.77 kg/m2 SpO2 100% Body surface area is 1.59 meters squared. General Appearance: Alert, Well appearing Head: No nasal congestion or discharge Skin: no rashes, bruises, or petechiae noted Ears: tympanic membranes normal Eyes: anicteric: pupils equal, round, reactive to light; Mouth/throat: no sores, erythema, exudates, or mucosal pallor. Tonsils not enlarged. Lymph nodes: 1.[address] located near angle of right jaw. Also with scattered cervicalnodes. Not pathologic by feel. Mobile Chest: lungs clear to auscultation Heart: normal S1 and S2, no murmur Abdomen: soft, non-tender to palpation, no organomegaly Genitalia: deferred Extremities: no focal swelling or tenderness; full ROM Neuro: grossly intact Performance Score: Lansky: 100 - fully active, normal Lab and/or Imaging Studies Recent Results (from the past 24 hour(s)) DIFFERENTIAL MANUAL Collection Time 07/06/13 10:16 AM Component Value Range WBC Auto 4 (*) 4.4-10.7 X(10)9/L Neutro Manual 10 (*) 44-73 % Lymph Manual 46 (*) 20-43 % Fallon Manual 26 (*) 5-13 % Eos Manual 9 (*) 0-6 % Baso Manual 2 0-2 % Atyp Lymph Manual 7 (*) <=0 % Cells Counted 100 Plt Est Decreased (*) Normal, Adequate platelets WBC Morph Normal Anisocytosis 1+ (*) None Poikilocytosis 1+ (*) None Large Platelets Occasional (*) None CBC W AUTO DIFFERENTIAL Collection Time 07/06/13 10:16 AM Component Value Range WBC 4.0 (*) 4.4-10.7 x10^9/L RBC 5.56 (*) 3.80-5.40 x10^12/L Hgb 17.5 12.0-17.6 g/dL HCT 49.3 35.2-51.7 % MCV 88.7 80.7-98.3 fl MCH 31.5 26.7-34.0 pg MCHC 35.5 30.8-35.9 gm/dL Plt Ct 22 (*) 153-416 x10^9/L RDW-CV 13.7 12.1-14.9 % Neutro 0.3 (*) 44.0-73.0 % Lymph 51.7 (*) 20.0-43.0 % Fallon 42.0 (*) 5.0-13.0 % Eos 4.2 0.0-6.0 % Baso 1.8 0.0-2.0 % Neutro Abs 0.01 (*) 2.01-7.14 x10^9/L Lymph Abs 1.97 1.07-3.94 x10^9/L Fallon Abs 1.60 (*) 0.26-1.07 x10^9/L Eosin Abs 0.16 0-0.47 x10^9/L Baso Abs 0.07 0-0.08 x10^9/L Hemo Reflex Status Manual Diff to follow COMPREHENSIVE METABOLIC PANEL Collection Time 07/06/13 10:16 AM Component Value Range Glucose 87 70-105 mg/dL Sodium 135 (*) 136-145 mmol/L Potassium 6.0 (*) 3.5-5.1 mmol/L Chloride 105 98-107 mmol/L CO2 20 (*) 22-29 mmol/L Calcium 9.41 9.08-10.48 mg/dL Anion Gap 10 5-20 mmol/L BUN 11.4 5.3-18.7 mg/dL Creatinine 0.90 0.61-1.07 mg/dL eGFR by MDRD >60 >60 ml/min/1.73m2 eGFR by MDRD AFR AMER >60 >60 ml/min/1.73m2 Alk Phos 214 (*) 39-139 U/L ALT/SGPT 93 (*) 6-46 U/L AST/SGOT 69 (*) 8-42 U/L Protein Total 8.2 6.3-8.2 gm/dL Albumin 4.3 3.3-4.9 gm/dL Bili Total 0.5 0.3-1.2 mg/dL IGG BLOOD Collection Time 07/06/13 10:16 AM Component Value Range IgG 545 682-5833 mg/dL POTASSIUM BLOOD Collection Time 07/06/13 11:53 AM Component Value Range Potassium 5.0 3.5-5.1 mmol/L CAROL DIRECT Collection Time 07/06/13 11:53 AM Component Value Range Direct Carol Positive ALEX IgG Positive STREP A SCREEN DIRECT W RFLX STREP A CULTURE Collection Time 07/06/13 11:56 AM Component Value Range Strep A Rapid Negative Negative Assessment Beka Nichols is a 18 y.o. 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 The autoimmune process was felt to be secondary to chronic immune suppression coupled with reactivation of EBV. He ultimately responded to Rituximab with clearance of EBV and normalization of counts. He has suffered from hypogammaglobulinemia since and requires regular IVIG. He was evaluated in early 2011 for massive LAD evaluated for suspected malignancy. Biopsy revealed granulomatous inflammation without malignant elements. LAD subsequently resolved. Beka's thrombocytopenia worsened in late 2011. It responded transiently to IVIG and corticosteroids. Multiple treatment strategies were discussed (Rituxan, altered immune suppression, splenectomy) and ultimately splenectomy was decided as the option most likely to lead to sustained remission. Splenectomy in late 12/2012. Complicated surgery with repaired bowel injury. Beka recovered nicely. Platelets increased nicely. Counts had been stable until this week. Now with recurrent thrombocytopenia and neutropenia. Suspect autoimmune in nature as always. Direct Coomb's positive without evidence of hemolysis. Physically well appearing. No bleeding. Concern this could be related to increasing EBV viremia Plan 1. Labs as above 2. EBV PCR 3. IVIG 1 g/kg today 4. Neulasta 5 mg today 5. Monitor for increasing lymphadenopathy. 6. Repeat counts early next week * Ileana Castillo RN - 07/06/2013 3:16 PM CDT Care assumed from Sai Goode RN for IVIG infusion. 24g PIV placed in patient's left forearm (Sai Goode RN and Subha Caldwell RN each had 2 attempts prior to this RN), tolerated well, labs obtained and NS flushed well. Transparent and occlusive dressing applied. Patient swabbed. Premedicated with Benadryl. Line flushed with D5, IVIG titrated per Pharmacy rate sheet. Vital signs monitored throughout infusion. Upon completion, flushed with D5, PIV discontinued and band-aid applied. Will receive local counts in 1 week, MD to discuss follow-up once received. Discharged home, ambulatory with mother. * Ileana Goode APRN-PIERCE - 07/06/2013 1:11 PM CDT Pt arrived in clinic, triaged, and assessed by RN. Here for scheduled visit and labs. Patient states that he has not been feeling to this RN. This RN attempted to start an IV twice without success. Subha Caldwell RN was unable to start an IV as well, but she did obtain the lab specimens peripherally. Labs reviewed with and patient examined per Dr. Chavez who ordered the patient IVIG and Neulasta. Re port given to Kameron Castillo RN to take over the remainder of the patient's care. * Sharmin Mathias - 07/06/2013 11:01 AM CDT Patient does NOT need to receive IVIG through [employer] per [place] on from [place] [phone]. documented in this encounter Procedure Notes * Document, Scanned - 07/18/2013 8:54 PM CDTAssociated Order(s): LAB RESULTS ORDER * Document, Scanned - 07/09/2013 2:59 AM CDTAssociated Order(s): LAB RESULTS ORDER documented in this encounter Miscellaneous Notes * Miscellaneous Scans - Document, Scanned - 07/07/2013 12:43 PM CDT documented in this encounter Plan of Treatment Not on file documented as of this encounter Procedures Procedure Name Priority Date/Time Associated Diagnosis Comments LAB RESULTS ORDER 07/18/2013 8:5 4 PM CDT STREP A SCREEN DIRECT W RFLX STREP A CULTURE Routine 07/06/2013 11:56 AM CDT CULTURE STREP GROUP A Routine 07/06/2013 11:56 AM CDT FLOW CYTOMETRY NEUTROPHIL ASSOCIATED AB Routine 07/06/2013 11:53 AM CDT ITP (idiopathic thrombocytopenic purpura) CAROL DIRECT ZAHRA 07/06/2013 11:53 AM CDT POTASSIUM BLOOD ZAHRA 07/06/2013 11:53 AM CDT ITP (idiopathic thrombocytopenic purpura) CBC W AUTO DIFFERENTIAL ZAHRA 07/06/2013 10:16 AM CDT ITP (idiopathic thrombocytopenic purpura) COMPREHENSIVE METABOLIC PANEL ZAHRA 07/06/2013 10:16 AM CDT ITP (idiopathic thrombocytopenic purpura) IGG BLOOD ZAHRA 07/06/2013 10:16 AM CDT ITP (idiopathic thrombocytopenic purpura) DIFFERENTIAL MANUAL Routine 07/06/2013 1 0:16 AM CDT ITP (idiopathic thrombocytopenic purpura) NADINE-DE LA CRUZ VIRUS PCR QUANTITATIVE WHOLE BLOOD AM Draw 07/06/2013 10:15 AM CDT ITP (idiopathic thrombocytopenic purpura) Hypogammaglobulinemia (HCC) Neutropenia associated with autoimmune disease (HCC) Cellulitis and abscess of face Lymphadenopathy History of liver transplant (HCC) Autoimmune hepatitis s/p liver transplant documented in this encounter Results * LAB RESULTS ORDER (07/18/2013 8:54 PM CDT) Narrative 07/18/2013 8:54 PM CDT Ordered by an unspecified provider. Transcriptions Document, Scanned - 07/09/2013 2:59 AM CDT Document, Scanned - 07/18/2013 8:54 PM CDT Scanned Document LAB - THERAPEUTIC DR MCCLELLAN MONITORING ORDERABLES * STREP A SCREEN DIRECT W RFLX STREP A CULTURE (07/06/2013 11:56 AM CDT) Strep A Rapid Negative Negative 07/06/2013 12:47 PM CDT [facility] Throat ENTIRE THROAT (SURFACE REGION OF NECK) / Unknown Collection / Unknown 07/06/2013 11:56 AM CDT 07/06/2013 12:04 PM CDT Narrative [facility] - 07/06/2013 12:47 PM CDT Test has reflexed to a Strep A culture. Philip Chavez MD LAB - MICROBIOLOG Y ORDERABLES [facility] [address] [place] [address] * CULTURE STREP GROUP A (07/06/2013 11:56 AM CDT) Culture Negative for Beta Hemolytic Streptococcus Group A 07/08/2013 8:42 AM CDT [facility] Microbiology ENTIRE THROAT (SURFACE REGION OF NECK) / Unknown 07/06/2013 11:56 AM CDT 07/06/2013 12:04 PM CDT Philip Chavez MD LAB - MICROBIOLOG Y ORDERABLES Performing Organization Address City/[facility]/ZIP Co de Phone Number [facility] [address] * (ABNORMAL) NEUTROPHIL ASSOCIATED ANTIBODIES (07/06/2013 11:53 AM CDT) Neutrophil Associated Antibody Positive (A) Negative 07/07/2013 4:50 PM CDT [facility] [employer] Comment: INTERPRETIVE INFORMATION: Neutrophil Associated Antibodies Neutrophil-associated [...] data. Test developed and characteristics determined by [facility] [employer]. See Compliance Statement A: [email or web address] Blood specimen (specimen) BLOOD SPECIMEN / Unknown 07/06/2013 11:53 AM CDT 07/06/2013 1:42 PM CDT Philip Chavez MD LAB - SEROLOGY OR DERABLES [facility] [address] [place] [address] * CAROL DIRECT (07/06/2013 11:53 AM CDT) Direct Carol (ALEX) Positive 07/06/2013 1:55 PM CDT [facility] Direct Carol (ALEX) IgG Positive 07/06/2013 1:55 PM CDT [facility] Blood Bank BLOOD SPECIMEN / Unknown Venipuncture / Unknown 07/06/2013 11:53 AM CDT 07/06/2013 12:05 PM CDT Philip Chavez MD LAB - BLOOD BANK ORDERABLES [facility] * POTASSIUM BLOOD (07/06/2013 11:53 AM CDT) Potassium 5.0 3.5 - 5.1 mmol/L 07/06/2013 12:54 PM CDT [facility] Blood BLOOD SPECIMEN / Unknown Venipuncture / Unknown 07/06/2013 11:53 AM CDT 07/06/2013 12:04 PM CDT Narrative [facility] - 07/06/2013 12:54 PM CDT Slight hemolysis Philip Chavez MD LAB - CHEMISTRY O RDERABLES [facility] [place] [address] * IGG BLOOD (07/06/2013 10:16 AM CDT) IgG 559 540 - 1,822 mg/dL 07/06/2013 11:02 AM CDT [facility] Blood BLOOD SPECIMEN / Unknown Venipuncture / Unknown 07/06/2013 10:16 AM CDT 07/06/2013 10:27 AM CDT Philip Chavez MD LAB - CHEMISTRY O RDERABLES [facility] [address] [facility] [place] [address] * (ABNORMAL) COMPREHENSIVE METABOLIC PANEL (07/06/2013 10:16 AM CDT) [facility] Glucose 87 70 - 105 mg/dL 07/06/2013 11:01 AM [facility] Sodium 135(L) 136 - 145 mmol/L 07/06/2013 11:01 AM [facility] Potassium 6.0(H) 3.5 - 5.1 mmol/L 07/06/2013 11:01 AM [facility] Comment:Moderate hemolysis. Chloride 105 98 - 107 mmol/L 07/06/2013 11:01 AM [facility] CO2 20(L) 22 - 29 mmol/L 07/06/2013 11:01 AM [facility] Calcium 9.41 9.08 - 10.48 mg/dL 07/06/2013 11:01 AM [facility] Anion Gap 10 5 - 20 mmol/L 07/06/2013 11:01 AM [facility] BUN 11.4 5.3 - 18.7 mg/dL 07/06/2013 11:01 AM [facility] Creatinine 0.90 0.61 - 1.07 mg/dL 07/06/2013 11:01 AM [facility] eGFR by MDRD >60 >60 ml/min/1.7 3m2 07/06/2013 11:01 AM [facility] eGFR by MDRD >60 >60 ml/min/1.7 3m2 07/06/2013 11:01 AM [facility] Alkaline Phosphatase 214(H) 39 - 139 U/L 07/06/2013 11:01 AM [facility] ALT 93(H) 6 - 46 U/L 07/06/2013 11:01 AM [facility] AST 69(H) 8 - 42 U/L 07/06/2013 11:01 AM [facility] Protein Total 8.2 6.3 - 8.2 gm/dL 07/06/2013 11:01 AM T [facility] Albumin 4.3 3.3 - 4.9 gm/dL 07/06/2013 11:01 AM T [facility] Bilirubin Total 0.5 0.3 - 1.2 mg/dL 07/06/2013 11:01 AM T [facility] Blood BLOOD SPECIMEN / Unknown 07/06/2013 10:16 AM CDT 07/06/2013 10:27 AM CDT Philip Chavez MD LAB - CHEMISTRY O RDERABLES Performing Organization Address City/State/[facility] Co de Phone Number [facility] [address] [place] [address] * (ABNORMAL) CBC W AUTO DIFFERENTIAL (07/06/2013 10:16 AM CDT) WBC 4.0(L) 4.4 - 10.7 x10^9/L 07/06/2013 10:56 AM [facility] RBC 5.56(H) 3.80 - 5.40 x10^12/L 07/06/2013 10:56 AM [facility] Hemoglobin 17.5 12.0 - 17.6 g/dL 07/06/2013 10:56 AM [facility] Hematocrit 49.3 35.2 - 51.7 % 07/06/2013 10:56 AM [facility] MCV 88.7 80.7 - 98.3 fl 07/06/2013 10:56 AM [facility] MCH 31.5 26.7 - 34.0 pg 07/06/2013 10:56 AM [facility] MCHC 35.5 30.8 - 35.9 gm/dL 07/06/2013 10:56 AM [facility] Platelet Count 22(L) 153 - 416 x10^9/L 07/06/2013 10:56 AM [facility] RDW-CV 13.7 12.1 - 14.9 % 07/06/2013 10:56 AM [facility] Neutrophils % 0.3(L) 44.0 - 73.0 % 07/06/2013 10:56 AM [facility] Lymphocytes % 51.7(H) 20.0 - 43.0 % 07/06/2013 10:56 AM T [facility] Monocytes % 42.0(H) 5.0 - 13.0 % 07/06/2013 10:56 AM T [facility] Eosinophils % 4.2 0.0 - 6.0 % 07/06/2013 10:56 AM [facility] Basophils % 1.8 0.0 - 2.0 % 07/06/2013 10:56 AM T [facility] Neutrophil Absolute 0.01(L) 2.01 - 7.14 x10^9/L 07/06/2013 10:56 AM [facility] Lymphocytes Absolute 1.97 1.07 - 3.94 x10^9/L 07/06/2013 10:56 AM [facility] Monocytes Absolute 1.60(H) 0.26 - 1.07 x10^9/L 07/06/2013 10:56 AM [facility] Eosinophils Absolute 0.16 0 - 0.47 x10^9/L 07/06/2013 10:56 AM [facility] Basophils Absolute 0.07 0 - 0.08 x10^9/L 07/06/2013 10:56 AM [facility] Hematology Reflex Status Manual Diff to follow 07/06/2013 10:56 AM [facility] Blood BLOOD SPECIMEN / Unknown 07/06/2013 10:16 AM CDT 07/06/2013 10:49 AM CDT Philip Chavez MD LAB - HEMATOLOGY ORDERABLES Performing Organization Address City/State/[facility] de Phone Number [facility] [address] [place] [address] * (ABNORMAL) DIFFERENTIAL MANUAL (07/06/2013 10:16 AM CDT) WBC Auto 4(L) 4.4 - 10.7 X(10)9/L 07/06/2013 11:19 AM [facility] Neutrophil % Manual 10(L) 44 - 73 % 07/06/2013 11:19 AM [facility] Lymphocytes % Manual 46(H) 20 - 43 % 07/06/2013 11:19 AM [facility] Monocytes % Manual 26(H) 5 - 13 % 07/06/2013 11:19 AM T [facility] Eosinophils % Manual 9(H) 0 - 6 % 07/06/2013 11:19 AM [facility] Basophils % Manual 2 0 - 2 % 07/06/2013 11:19 AM [facility] Atypical Lymphocyte % Manual 7(H) <=0 % 07/06/2013 11:19 AM [facility] Cells Counted 100 # cells 07/06/2013 11:19 AM [facility] Platelet Estimation Decreased (A) Normal, Adequate platelets 07/06/2013 11:19 AM [facility] WBC Morph Normal 07/06/2013 11:19 AM [facility] Anisocytosis 1+(A) None 07/06/2013 11:19 AM [facility] Poikilocytosis 1+(A) None 07/06/2013 11:19 AM [facility] Large Platelets Occasiona l(A) None 07/06/2013 11:19 AM [facility] Blood BLOOD SPECIMEN / Unknown 07/06/2013 10:16 AM CDT 07/06/2013 10:49 AM CDT Philip Chavez MD LAB - HEMATOLOGY ORDERABLES Performing Organization Address City/State/[facility] Co de Phone Number [facility] [address] [place] [address] * (ABNORMAL) NADINE-DE LA CRUZ VIRUS PCR QUANTITATIVE WHOLE BLOOD (07/06/2013 10:15 AM CDT) Pathologist [facility] Nadine-De La Cruz Quant Source Whole Blood 07/08/2013 4:40 AM [facility] [employer] Nadine-De La Cruz Quant copy/mL 3,250 cpy/mL 07/08/2013 4:40 AM [facility] [employer] Nadine-De La Cruz Quant Log 3.5 log 07/08/2013 4:40 AM [facility] Comment: INTERPRETIVE INFORMATION: Nadine De La Cruz Virus by Quantitative PCR The quantitative range [...] methodologies. Test developed and characteristics determined by [facility] [employer]. See Compliance Statement A: [email or web address]/CS Interpretation EBV Quantitative Detected (A) Not Detected 07/08/2013 4:40 AM CDT [employer] Blood specimen (specimen) BLOOD SPECIMEN / Unknown Venipuncture / Unknown 07/06/2013 10:15 AM CDT 07/06/2013 10:46 AM CDT Philip Chavez MD LAB - SEROLOGY OR DERABLES [employer] [address] [place] [address] documented in this encounter Visit Diagnoses Diagnosis ITP (idiopathic thrombocytopenic purpura) (HCC)- Primary Immune thrombocytopenic purpura Hypogammaglobulinemia (HCC) Hypogammaglobulinaemia, unspecified Neutropenia associated with autoimmune disease (HCC) Other neutropenia Cellulitis and abscess of face Lymphadenopathy Enlargement of lymph nodes History of liver transplant (HCC) Liver replaced by transplant Autoimmune hepatitis s/p liver transplant Autoimmune hepatitis documented in this encounter Administered Medications Inactive Administered Medications - up to 3 most recent administrations Medication Order MAR Action Action Date Dose Rate Site dextrose 5 % infusion at 75 mL/hr, Intravenous, CONTINUOUS, Starting on Wed07/06/13 at 1200, Until Wed07/07/13 at 0128, IVIG maintenance IV Fluid/Flush solution $ New Bag/Syringe 07/06/2013 4:30 PM CDT 75 mL/hr diphenhydrAMINE (BENADRYL) tablet 50 mg 50 mg, Oral, ONCE, 1 dose, On Wed07/06/13 at 1145, Administer one (1) hour prior to IVIG administration. $ Given 07/06/2013 12:14 PM CDT 50 mg immune globulin (human) (PRIVIGEN) 10 % infusion 54 g 54 g (1 g/kg ? 54 kg), Intravenous, ONCE, 1 dose, On Wed07/06/13 at 1500, Intravenous, CONTINUOUS for 2 hours, Initiate infusion at a rate of 0.01 ml/kg/min. If no reaction, increase infusion rate by 0.01 ml/kg/min every 10 to 15 minutes to a maximum rate of 0.08 ml/kg/min.Infusion Rate if a Reaction Occurs: Discontinue IVIG infusion until symptoms resolve. Keep vein open with flush solution. Measure vital signs at least every 5 minutes until otherwise ordered by physician. Then resume infusion rate at one half the previous rate. $ Given 07/06/2013 12:40 PM CDT 54 g pegfilgrastim (NEULASTA) injection 5 mg 5 mg, Subcutaneous, ONCE, 1 dose, On Brenda 07/06/13 at 1400, Do not shake vial. $ Given 07/06/2013 12:14 PM CDT 5 mg Right Arm documented in this encounter Care Teams Value Advisor Relationship Specialty Start Date End Date Vilma Spangler MD [address] [facility] [address] [place] [address] PCP - General 01/05/11 documented as of this encounter
--- OUTSIDE RECORDS SUMMARY | 2024-10-28 05:55 | XMS_ITS | Encounter Summary ---
Author Organization [facility] Address [address] [place] [address] Care Team Providers Care Accreditation Specialist Name Role Phone Vilma Spangler MD Primary Care Provider [phone] Reason for Visit * (Routine) - Closed Specialty Diagnoses / Procedures Referred By Sascha rey Referred To Contact Oncology-Medical [facility] [address] [address] Referral ID Status Reason Start Date Expiration Date Visits Re quested Visits Authorized [id number] Closed 06/13/2013 12/10/2013 1 1 Encounter Details Date Type Department Care Team (Late st Contact Info) Description 06/13/2013 7:30 AM CDT - 06/13/2013 11:59 PM CDT Hospital Encounter The [facility] at [address] [address] Philip Chavez MD [address] [place] [phone] Discharge Disposition: Home or Self Care Social [...] Sign Reading Time Taken Comments Blood Pressure 102/60 06/13/2013 8:01 AM CDT Pulse 63 06/13/2013 8:01 AM CDT Temperature 36.6 ??C (97.8 ??F) 06/13/2013 8:01 AM CD T Respiratory Rate - - Oxygen Saturation 99% 06/13/2013 8:01 AM CDT Inhaled Oxygen Concentration - - Weight 55.1 kg (121 lb 7.6 oz) 06/13/2013 8:01 A M CDT Height 169.6 cm (5' 6.77 ) 06/13/2013 8:01 AM CD T Body Mass Index 19.16 06/13/2013 8:01 AM CDT documented in this encounter Medications at Time of Discharge Medication Sig Dispensed Refills Start Date End Date acetaminophen (TYLENOL) 325 MG tablet Take 325 mg by mouth every 4 hours as needed. Maximum allowable Acetaminophen amount = 4 Grams (4000 mg) / 24 hours. predniSONE (DELTASONE) 20 MG tablet Take 10 mg by mouth once daily. 08/08/2013 sulfamethoxazole-trim ethoprim (BACTRIM DS; SEPTRA DS) 800-160 MG tabletIndications:Silvia er replaced by transplant ([facility]) Take 1 Tab by mouth once daily. 30 Tab 4 01/30/2013 07/18/2013 tacrolimus (PROGRAF) 0.5 MG capsuleIndications:Li ruben replaced by transplant ([facility]) Take 1 Cap by mouth 2 times daily. 60 Cap 4 01/30/2013 07/18/2013 documented as of this encounter Progress Notes * Papo Fuentes RN - 06/13/2013 3:35 PM CDT Pt arrived in clinic, triaged, and assessed by RN. Here for scheduled visit and labs. Labs obtainedper Kameron Castillo RN. Examined per dr chavez then d/c'd home ambulatory with mom. To f/u with lab results. Called and spoke with mom regarding IgG level 567. Beka to RTC in 3 weeks for labs and visit.Mom verbalized understanding. 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 Review of Systems: 1) General Fever: no Wt/appetite change: no 2) Hem Bruising: denies Other:no 3) Skin Rash: scalp rash resolved 4) ENT Congestion:no Rhinorrhea: no Epistaxis: no Sore Throat: no Change in Hearing: no Earache: no Stomatitis: no 5) Resp/CV Shortness of Breath: no Chest Pain: no Cough:no Palpitation: no Other: no 6) GI Pain: no Jaundice: no Nausea: no Vomiting: no Diarrhea: no Constipation: no 7) Frequency: no Dysuria: no 8) Musculo-skeletal Pain: no Swelling/Edema: no Change in ROM: no Cyanosis: no Other: no 9) Neuro Headache: no Weakness: no 10) Psych School Grade Behavior: no Other: no 11) Allergy/Immun no 12) Pain no 13) Nutritional Status good Interval History Beka feels well overall. He has noted some left sided LN in his neck. No recent infections. Active. Working. Appetite fine. No bleeding. Past Medical History: unchanged Family Medical History: unchanged Physical Exam Constitutional: BP 102/60 Pulse 63 Temp 97.8 ??F Ht 1.696 m (5' 6.77 ) Wt 55.1 kg (121 lb 7.6 oz) BMI 19.16 kg/m2 SpO2 99% Body surface area is 1.61 meters squared. General Appearance: Alert, appears well Head: No nasal congestion or discharge Skin: no rashes, bruises, or petechiae noted Ears: tympanic membranes normal Eyes: anicteric: pupils equal, round, reactive to light; Mouth/throat: no sores, erythema, exudates, or mucosal pallor. Tonsils not enlarged. Lymph nodes: 1.[address] palpated at base of posterior triangle just behind SCM muscle.Scattered smaller LN on right in similar location. Freely mobile. Rubbery consistency. Chest: lungs clear to auscultation Heart: normal S1 and S2, no murmur Abdomen: soft, non-tender to palpation, no masses, abdominal incision intact, Genitalia: deferred Extremities: no focal swelling or tenderness; full ROM Neuro: grossly intact Performance Score: Lansky: 100 - fully active, normal Lab and/or Imaging Studies Recent Results (from the past 72 hour(s)) DIFFERENTIAL MANUAL Collection Time 06/13/13 8:17 AM Component Value Range WBC Auto 6.7 4.4-10.7 X(10)9/L Neutro Manual 44 44-73 % Lymph Manual 25 20-43 % [place] Manual 24 (*) 5-13 % Eos Manual 1 0-6 % Baso Manual 1 0-2 % Atyp Lymph Manual 1 (*) <=0 % Band Manual 3 0-11 % Axson Manual 1 (*) <=0 % Cells Counted 100 RBC Morph Normal WBC Morph Normal CBC W AUTO DIFFERENTIAL Collection Time 06/13/13 8:17 AM Component Value Range WBC 6.7 4.4-10.7 x10^9/L RBC 4.90 3.80-5.40 x10^12/L Hgb 16.2 12.0-17.6 g/dL HCT 43.9 35.2-51.7 % MCV 89.6 80.7-98.3 fl MCH 33.1 26.7-34.0 pg MCHC 36.9 (*) 30.8-35.9 gm/dL Plt Ct 197 153-416 x10^9/L RDW-CV 14.2 12.1-14.9 % MPV 10.2 9.4-12.9 fl Neutro 46.4 44.0-73.0 % Lymph 26.5 20.0-43.0 % [place] 24.2 (*) 5.0-13.0 % Eos 1.9 0.0-6.0 % Baso 0.4 0.0-2.0 % Immature Grans 0.6 0-1 % Neutro Abs 3.10 2.01-7.14 x10^9/L Lymph Abs 1.77 1.07-3.94 x10^9/L [place] Abs 1.62 (*) 0.26-1.07 x10^9/L Eosin Abs 0.13 0-0.47 x10^9/L Baso Abs 0.03 0-0.08 x10^9/L Immature Grans Abs 0.04 0.00-0.06 x10^9/L Hemo Reflex Status Manual Diff to follow JOSE-BAR VIRUS PCR QUANTITATIVE BLOOD Collection Time 06/13/13 8:17 AM Component Value Range EBV DNA Quant PCR (*) No EBV DNA detected Value: POSITIVE for EBV DNA but below level of accurate quantitation IGG BLOOD Collection Time 06/13/13 8:17 AM Component Value Range IgG 657 404-3706 mg/dL Assessment Beka Nichols is a 18 y.o. male with history of liver transplant, autoimmunne thrombocytopenia/neutropenia, clinically doing well. Unremarkable LAD. History-Beka is a 18 yo male with [...] revealed granulomatous inflammation without malignant elements. LAD has resolved. Beka's thrombocytopenia worsened in late 2011. It responded transiently to IVIG and corticosteroids. Multiple treatment strategies were discussed (Rituxan, altered immune suppression, splenectomy) and ultimately splenectomy was decided as the option most likely to lead to sustained remission. Splenectomy in late 12/2012. Complicated surgery with repaired bowel injury. Beka recovered nicely. Platelets increased nicely. Plan 1. CBC, IgG, CMP, 2. Hold on IVIG for now. Repeat IgG in [address] at home. Call or return if enlarging. documented in this encounter Miscellaneous Notes * Miscellaneous Scans - Document, Scanned - 06/16/2013 12:02 AM CDT documented in this encounter Plan of Treatment Not on file documented as of this encounter Procedures Procedure Name Priority Date/Time Associated Diagnosis Comments JOSE-DE LA CRUZ VIRUS PCR QUANT BLOOD/CSF Routine 06/13/2013 8:17 AM CDT Hypogammaglobulinemia (HCC) ITP (idiopathic thrombocytopenic purpura) CBC W AUTO DIFFERENTIAL STAT 06/13/2013 8:17 AM CDT Hypogammaglobulinemia (HCC) ITP (idiopathic thrombocytopenic purpura) IGG BLOOD STAT 06/13/2013 8:17 AM CDT Hypogammaglobulinemia (HCC) ITP (idiopathic thrombocytopenic purpura) DIFFERENTIAL MANUAL Routine 06/13/2013 8 :17 AM CDT Hypogammaglobulinemia (HCC) ITP (idiopathic thrombocytopenic purpura) documented in this encounter Results * IGG BLOOD (06/13/2013 8:17 AM CDT) IgG 567 540 - 1,822 mg/dL 06/13/2013 8:53 AM CDT [facility] Blood BLOOD SPECIMEN / Unknown Venipuncture / Unknown 06/13/2013 8:17 AM CDT 06/13/2013 8:26 AM CDT Philip Chavez MD LAB - CHEMISTRY O RDERABLES Performing Organization Address City/State/[facility] Co de Phone Number [facility] [place] [address] * (ABNORMAL) JOSE-BAR VIRUS PCR QUANTITATIVE BLOOD (06/13/2013 8:17 AM CDT) Jose-De La Cruz Virus DNA PCR Quantitative POSITIVE for EBV DNA but below level of accurate quantitatio n(A) No EBV DNA detected 06/14/2013 7:14 AM CDT [facility] Blood BLOOD SPECIMEN / Unknown Venipuncture / Unknown 06/13/2013 8:17 AM CDT 06/13/2013 8:26 AM CDT Narrative [facility] - 06/14/2013 7:14 AM CDT This assay has a lower limit of detection of 3500 copies per mL (log 10 ?? value 3.5). Accurate quantitation is available in the range of 7500 ? copies per mL to 9,250,000 copies per mL (3.8 log 10 copies per mL to ? 6.97 log 10 copies per mL). ? Specimens with copy numbers below 7500 copies per mL will be reported as Positive for EBV DNA but below the level of accurate quantitation. ? Results from different laboratories may not be comparable. ??EBV levels can vary by ??specimen type: [facility] uses whole blood which is more sensitive than plasma for detection of EBV DNA. ??Also, the lack of a universal quantitative standard contributes to interlaboratory variability. Therefore, caution should be exercised when attempting to compare results obtained from different laboratories. It is recommended that for tracking relative changes in EBV DNA levels in particular patient, the same laboratory should test the specimen. Philip Chavez MD LAB - MICROBIOLOG Y ORDERABLES Performing Organization Address City/State/[facility] de Phone Number [facility] [address] [place] [address] * (ABNORMAL) CBC W AUTO DIFFERENTIAL (06/13/2013 8:17 AM CDT) WBC 6.7 4.4 - 10.7 x10^9/L 06/13/2013 9:06 AM CDT [facility] RBC 4.90 3.80 - 5.40 x10^12/L 06/13/2013 9:06 AM CDT [facility] Hemoglobin 16.2 12.0 - 17.6 g/dL 06/13/2013 9:06 AM T [facility] Hematocrit 43.9 35.2 - 51.7 % 06/13/2013 9:06 AM CDT [facility] MCV 89.6 80.7 - 98.3 fl 06/13/2013 9:06 AM [facility]END[facility] MCH 33.1 26.7 - 34.0 pg 06/13/2013 9:06 AM [facility]END[facility] TO [facility] MCHC 36.9(H) 30.8 - 35.9 gm/dL 06/13/2013 9:06 AM [facility]END[facility] TO [facility] Platelet Count 197 153 - 416 x10^9/L 06/13/2013 9:06 AM PENDING S[facility] TO [facility] RDW-CV 14.2 12.1 - 14.9 % 06/13/2013 9:06 AM [facility]END[facility] TO [facility] MPV 10.2 9.4 - 12.9 fl 06/13/2013 9:06 AM [facility] Neutrophils % 46.4 44.0 - 73.0 % 06/13/2013 9:06 AM [facility]END[facility] Lymphocytes % 26.5 20.0 - 43.0 % 06/13/2013 9:06 AM [facility] Monocytes % 24.2(H) 5.0 - 13.0 % 06/13/2013 9:06 AM [facility] Eosinophils % 1.9 0.0 - 6.0 % 06/13/2013 9:06 AM [facility] Basophils % 0.4 0.0 - 2.0 % 06/13/2013 9:06 AM [facility] Immature Granulocytes 0.6 0 - 1 % 06/13/2013 9:06 AM [facility] Neutrophil Absolute 3.10 2.01 - 7.14 x10^9/L 06/13/2013 9:06 AM [facility] Lymphocytes Absolute 1.77 1.07 - 3.94 x10^9/L 06/13/2013 9:06 AM [facility] Monocytes Absolute 1.62(H) 0.26 - 1.07 x10^9/L 06/13/2013 9:06 AM [facility] Eosinophils Absolute 0.13 0 - 0.47 x10^9/L 06/13/2013 9:06 AM [facility] Basophils Absolute 0.03 0 - 0.08 x10^9/L 06/13/2013 9:06 AM [facility] Immature Granulocytes Absolute 0.04 0.00 - 0.06 x10^9/L 06/13/2013 9:06 AM T [facility] Hematology Reflex Status Manual Diff to follow 06/13/2013 9:06 AM T [facility] Blood BLOOD SPECIMEN / Unknown Venipuncture / Unknown 06/13/2013 8:17 AM CDT 06/13/2013 8:26 AM CDT Philip Chavez MD LAB - HEMATOLOGY ORDERABLES Performing Organization Address City/State/[facility] Co de Phone Number [facility] [address] [place] [address] * (ABNORMAL) DIFFERENTIAL MANUAL (06/13/2013 8:17 AM CDT) WBC Auto 6.7 4.4 - 10.7 X(10)9/L 06/13/2013 9:06 AM T [facility] Neutrophil % Manual 44 44 - 73 % 06/13/2013 9:06 AM T [facility] Lymphocytes % Manual 25 20 - 43 % 06/13/2013 9:06 AM [facility] Monocytes % Manual 24(H) 5 - 13 % 06/13/2013 9:06 AM [facility] Eosinophils % Manual 1 0 - 6 % 06/13/2013 9:06 AM [facility] Basophils % Manual 1 0 - 2 % 06/13/2013 9:06 AM [facility] Atypical Lymphocyte % Manual 1(H) <=0 % 06/13/2013 9:06 AM [facility] Band % Manual 3 0 - 11 % 06/13/2013 9:06 AM [facility]END[facility] Axson Manual 1(H) <=0 % 06/13/2013 9:06 AM [facility]END[facility] Cells Counted 100 # cells 06/13/2013 9:06 AM T [facility] RBC Morphology Normal 06/13/2013 9:06 AM [facility]END[facility] WBC Morph Normal 06/13/2013 9:06 AM [facility] Blood BLOOD SPECIMEN / Unknown 06/13/2013 8:17 AM CDT 06/13/2013 8:26 AM CDT Philip Chavez MD LAB - HEMATOLOGY ORDERABLES [facility] [address] [facility] [place] [address] documented in this encounter Visit Diagnoses Diagnosis Hypogammaglobulinemia (HCC)- Primary Hypogammaglobulinaemia, unspecified ITP (idiopathic thrombocytopenic purpura) (HCC) Immune thrombocytopenic purpura documented in this encounter Care Teams Accreditation Specialist Relationship Specialty Start Date End Date Vilma Spangler MD [address] [place], [place] [id number] PCP - General 01/05/11 documented as of this encounter
--- OUTSIDE RECORDS SUMMARY | 2024-10-28 05:55 | XMS_ITS | Encounter Summary ---
Author Organization [facility] Address [address] [place] [address] Care Team Providers Care Operations Section Manager Name Role Phone Vilma Spangler MD Primary Care Provider +- [phone] Reason for Visit * Reason Onset Date Comments Follow-up 09/13/2013 Encounter Details Date Type Department Care Team (Late st Contact Info) Description 09/13/2013 Telephone [facility] at [address] [phone] Anastasia Fox, RN Follow-up Social History Tobacco Use Types Packs/Day Years [...] Miscellaneous Notes * Telephone Encounter - Anastasia Fox, RN - 09/13/2013 11:19 AM CST Mom called to follow-up on lab results collected on 09/09/13 at [facility]. Received results and reviewedwith Dr. Chavez. PLT 417. To repeat local counts in 2 weeks. GI and Hematology appt's at [facility] being scheduled by Batool Mcdermott. Mom states she has spoke with Batool and plans to go for both appt's inJ2013 due to Beka's busy work schedule in October. ON CUTTER documented in this encounter Plan of Treatment Not on file documented as of this encounter Visit Diagnoses Not on filedocumented in this encounter Care Teams Operations Section Manager Relationship Specialty Start Date End Date Vilma Spangler MD [address] [address] PCP - General 01/05/11 documented as of this encounter
--- OUTSIDE RECORDS SUMMARY | 2024-10-28 05:55 | XMS_ITS | Encounter Summary ---
Author Organization [facility] Address [address] [facility] [place] [address] Care Team Providers Care Pipeline Dispatcher Name Role Phone Vilma Spangler MD Primary Care Provider [phone] Encounter Details Date Type Department Care Team (Late st Contact Info) Description 02/28/2014 Hospital Outpatient Visit [facility] Default Department Kaycee Alexandre MD [address] [place] [address] [address] [place] [address] Discharge Disposition: Home or Self Care Social [...] on filedocumented in this encounter Care Teams Pipeline Dispatcher Relationship Specialty Start Date End Date Vilma Spangler MD [address] [address] PCP - General 01/05/11 documented as of this encounter
--- OUTSIDE RECORDS SUMMARY | 2024-10-28 05:55 | XMS_ITS | Encounter Summary ---
Author Organization [facility] Address [address] [place] [address] Care Team Providers Care Hat Maker Name Role Phone Vilma Spangler MD Primary Care Provider +1- [phone] Encounter Details Date Type Department Care Team (Late st Contact Info) Description 08/15/2013 12:46 PM CDT - 08/15/2013 11:59 PM CDT Hospital Encounter [facility] at [address] [address] Philip Chavez MD [address] [place] [phone] Discharge Disposition: Home or Self Care Social [...] Sign Reading Time Taken Comments Blood Pressure 112/64 08/15/2013 12:54 PM CDT Pulse 76 08/15/2013 12:54 PM CDT Temperature 36.8 ??C (98.3 ??F) 08/15/2013 12:54 PM C DT Respiratory Rate 18 08/15/2013 12:54 PM CDT Oxygen Saturation 99% 08/15/2013 12:54 PM CDT Inhaled Oxygen Concentration - - Weight 56 kg (123 lb 7.3 oz) 08/15/2013 12:54 PM CDT Height 169 cm (5' 6.54 ) 08/15/2013 12:54 PM CDT Body Mass Index 19.61 08/15/2013 12:54 PM CDT documented in this encounter Medications at Time of Discharge Medication Sig Dispensed Refills Start Date End Date acetaminophen (TYLENOL) 325 MG tablet Take 325 mg by mouth every 4 hours as needed. Maximum allowable Acetaminophen amount = 4 Grams (4000 mg) / 24 hours. predniSONE (DELTASONE) 20 MG tablet Take 10 mg by mouth once daily. 08/08/2013 sulfamethoxazole-trime thoprim (BACTRIM DS; SEPTRA DS) 800-160 MG tabletIndications:Live r replaced by transplant (HCC) Take 1 Tab by mouth once daily. 30 Tab 5 07/24/2013 tacrolimus (PROGRAF) 0.5 MG capsuleIndications:Silvia er replaced by transplant ([facility]) Take 1 Cap by mouth 2 times daily. 60 Cap 5 07/18/2013 documented as of this encounter Progress Notes * Leyla Vargas RN - 08/15/2013 3:32 PM CDT Patient here with mother for a visit. Lab work ordered: CBC / CMP / EBV. Lab samples obtained from patient's left AC using a 23 Gauge butterfly needle. Band- Aid applied. Patient examined by Dr. Philip Chavez. MD reviewed lab results with family and discharged patient from clinic. Patient to follow up per MD's instructions. PLT 365 K documented in this encounter Procedure Notes * Document, Scanned - 09/29/2013 8:46 AM CSTAssociated Order(s): LAB RESULTS ORDER WELDER APPRENTICE * Document, Scanned - 09/29/2013 8:10 AM CSTAssociated Order(s): LAB RESULTS ORDER WELDER APPRENTICE * Document, Scanned - 09/14/2013 8:26 PM CSTAssociated Order(s): LAB RESULTS ORDER WELDER APPRENTICE * Document, Scanned - 09/01/2013 8:15 PM CDTAssociated Order(s): LAB RESULTS ORDER * Document, Scanned - 08/31/2013 4:47 AM CDTAssociated Order(s): LAB RESULTS ORDER documented in this encounter Miscellaneous Notes * Miscellaneous Scans - Document, Scanned - 09/25/2013 11:11 AM CST WELDER APPRENTICE * Miscellaneous Scans - Document, Scanned - 09/20/2013 10:00 AM CST WELDER APPRENTICE * Miscellaneous Scans - Document, Scanned - 08/16/2013 10:31 PM CDT documented in this encounter Plan of Treatment Not on file documented as of this encounter Procedures Procedure Name Priority Date/Time Associated Diagnosis Comments LAB RESULTS ORDER 09/29/2013 8:4 6 AM GAS WELDER APPRENTICE JOSE-DE LA CRUZ VIRUS PCR QUANTITATIVE WHOLE BLOOD Routine 08/15/2013 1:09 PM CDT ITP (idiopathic thrombocytopenic purpura) CBC W AUTO DIFFERENTIAL ZAHRA 08/15/2013 1:09 PM CDT ITP (idiopathic thrombocytopenic purpura) COMPREHENSIVE METABOLIC PANEL ZAHRA 08/15/2013 1:09 PM CDT ITP (idiopathic thrombocytopenic purpura) documented in this encounter Results * LAB RESULTS ORDER (09/29/2013 8:46 AM GAS WELDER APPRENTICE) Narrative 09/29/2013 8:46 AM GAS WELDER APPRENTICE Ordered by an unspecified provider. Transcriptions Document, Scanned - 08/31/2013 4:47 AM CDT Document, Scanned - 09/01/2013 8:15 PM CDT Document, Scanned - 09/14/2013 8:26 PM CST Document, Scanned - 09/29/2013 8:10 AM CST Document, Scanned - 09/29/2013 8:46 AM CST Scanned Document LAB - THERAPEUTIC DR MCCLELLAN MONITORING ORDERABLES * (ABNORMAL) JOSE-DE LA CRUZ VIRUS PCR QUANTITATIVE WHOLE BLOOD (08/15/2013 1:09 PM CDT) [facility] Jose-De La Cruz Quant Source Whole Blood 08/16/2013 2:27 PM CDT [facility] Jose-De La Cruz Quant copy/mL Not Quantified cpy/mL 08/16/2013 2:27 PM CDT [facility] Jose-De La Cruz Quant Log Not Quantified log 08/16/2013 2:27 PM CDT [facility] Comment: Not Quantified - EBV DNA was detected, but at a level below 2.6 log copies/mL (390 copies/mL). Virus detected at a level below 2.6 log copies/mL cannot be accurately quantified by this assay. INTERPRETIVE INFORMATION: Jose De La Cruz Virus by Quantitative PCR [...] methodologies. Test developed and characteristics determined by [employer]. See Compliance Statement A: [email or web address] Interpretation EBV Quantitative Detected(A) Not Detected 08/16/2013 2:27 PM CDT [facility] Blood specimen (specimen) BLOOD SPECIMEN / Unknown 08/15/2013 1:09 PM CDT 08/15/2013 1:15 PM CDT Philip Chavez MD LAB - SEROLOGY OR DERABLES [facility] [place] [address] * (ABNORMAL) COMPREHENSIVE METABOLIC PANEL (08/15/2013 1:09 PM CDT) Glucose 86 70 - 105 mg/dL 08/15/2013 1:45 PM T [facility] Sodium 139 136 - 145 mmol/L 08/15/2013 1:45 PM T [facility] Potassium 3.9 3.5 - 5.1 mmol/L 08/15/2013 1:45 PM T [facility] Chloride 106 98 - 107 mmol/L 08/15/2013 1:45 PM T [facility] CO2 21(L) 22 - 29 mmol/L 08/15/2013 1:45 PM [facility] Calcium 9.28 9.08 - 10.48 mg/dL 08/15/2013 1:45 PM [facility] Anion Gap 12 5 - 20 mmol/L 08/15/2013 1:45 PM T [facility] BUN 9.9 5.3 - 18.7 mg/dL 08/15/2013 1:45 PM T [facility] Creatinine 0.94 0.61 - 1.07 mg/dL 08/15/2013 1:45 PM [facility] eGFR by MDRD >60 >60 ml/min/1.7 3m2 08/15/2013 1:45 PM [facility] eGFR by MDRD >60 >60 ml/min/1.7 3m2 08/15/2013 1:45 PM T [facility] Alkaline Phosphatase 116 39 - 139 U/L 08/15/2013 1:45 PM T [facility] ALT 67(H) 6 - 46 U/L 08/15/2013 1:45 PM [facility] AST 40 8 - 42 U/L 08/15/2013 1:45 PM [facility] Protein Total 6.2(L) 6.3 - 8.2 gm/dL 08/15/2013 1:45 PM T [facility] Albumin 3.9 3.3 - 4.9 gm/dL 08/15/2013 1:45 PM CDT [facility] Bilirubin Total 0.3 0.3 - 1.2 mg/dL 08/15/2013 1:45 PM T [facility] Blood BLOOD SPECIMEN / Unknown 08/15/2013 1:09 PM CDT 08/15/2013 1:16 PM CDT Philip Chavez MD LAB - CHEMISTRY O RDERABLES Performing Organization Address City/State/[facility] Co de Phone Number [facility] [address] [place] [address] * (ABNORMAL) CBC W AUTO DIFFERENTIAL (08/15/2013 1:09 PM CDT) WBC 7.1 4.4 - 10.7 x10^9/L 08/15/2013 1:38 PM CDT [facility] RBC 4.54 3.80 - 5.40 x10^12/L 08/15/2013 1:38 PM T [facility] Hemoglobin 15.0 12.0 - 17.6 g/dL 08/15/2013 1:38 PM T [facility] Hematocrit 42.6 35.2 - 51.7 % 08/15/2013 1:38 PM T [facility] MCV 93.8 80.7 - 98.3 fl 08/15/2013 1:38 PM T [facility] MCH 33.0 26.7 - 34.0 pg 08/15/2013 1:38 PM T [facility] MCHC 35.2 30.8 - 35.9 gm/dL 08/15/2013 1:38 PM T [facility] Platelet Count 365 153 - 416 x10^9/L 08/15/2013 1:38 PM T [facility] RDW-CV 15.5(H) 12.1 - 14.9 % 08/15/2013 1:38 PM T [facility] MPV 9.7 9.4 - 12.9 fl 08/15/2013 1:38 PM T [facility] Neutrophils % 52.6 44.0 - 73.0 % 08/15/2013 1:38 PM CDT [facility] Lymphocytes % 29.3 20.0 - 43.0 % 08/15/2013 1:38 PM CDT [facility] Monocytes % 13.8(H) 5.0 - 13.0 % 08/15/2013 1:38 PM CDT [facility] Eosinophils % 3.7 0.0 - 6.0 % 08/15/2013 1:38 PM CDT [facility] Basophils % 0.3 0.0 - 2.0 % 08/15/2013 1:38 PM T [facility] Immature Granulocytes 0.3 0 - 1 % 08/15/2013 1:38 PM CDT [facility] Neutrophil Absolute 3.74 2.01 - 7.14 x10^9/L 08/15/2013 1:38 PM CDT [facility] Lymphocytes Absolute 2.08 1.07 - 3.94 x10^9/L 08/15/2013 1:38 PM CDT [facility] Monocytes Absolute 0.98 0.26 - 1.07 x10^9/L 08/15/2013 1:38 PM CDT [facility] Eosinophils Absolute 0.26 0 - 0.47 x10^9/L 08/15/2013 1:38 PM CDT [facility] Basophils Absolute 0.02 0 - 0.08 x10^9/L 08/15/2013 1:38 PM CDT [facility] Immature Granulocytes Absolute 0.02 0.00 - 0.06 x10^9/L 08/15/2013 1:38 PM T [facility] Blood BLOOD SPECIMEN / Unknown 08/15/2013 1:09 PM CDT 08/15/2013 1:16 PM CDT Philip Chavez MD LAB - HEMATOLOGY ORDERABLES Performing Organization Address City/State/[facility] Co de Phone Number [facility] [address] [place] [address] documented in this encounter Visit Diagnoses Diagnosis ITP (idiopathic thrombocytopenic purpura) (HCC)- Primary Immune thrombocytopenic purpura documented in this encounter Care Teams Hat Maker Relationship Specialty Start Date End Date Vilma Spangler MD [address] [place] [address] PCP - General 01/05/11 documented as of this encounter
--- OUTSIDE RECORDS SUMMARY | 2024-10-28 05:55 | XMS_ITS | Encounter Summary ---
Author Organization [facility] Address [address] [place] [address] Care Team Providers Care Us Administrative Law Judge Name Role Phone Vilma Spangler MD Primary Care Provider +1- [phone] Reason for Visit * Reason Onset Date Comments Results 07/31/2013 Encounter Details Date Type Department Care Team (Late st Contact Info) Description 07/31/2013 Telephone The [facility] at [address] [address] Sherry Rebolledo RN Results Social History Tobacco Use Types [...] encounter Miscellaneous Notes * Telephone Encounter - Sherry Rebolledo RN - 07/31/2013 9:15 AM CDT Patient had labs drawn from outside facility. Patient's plt [address] chavez who stated todecrease prednisone to 20 mg daily. Notified mother and also instructed her to make an appt in one week in [facility] with Dr. Chavez. Patient's mother agreed to instructions and stated she would call if any issue with the appt. documented in this encounter Plan of Treatment Not on file documented as of this encounter Visit Diagnoses Not on filedocumented in this encounter Care Teams Us Administrative Law Judge Relationship Specialty Start Date End Date Vilma Spangler MD [address] [address] PCP - General 01/05/11 documented as of this encounter
--- OUTSIDE RECORDS SUMMARY | 2024-10-28 05:55 | XMS_ITS | Encounter Summary ---
Author Organization [facility] Address [address] [place] [address] Care Team Providers Care Stage Settings Painter Name Role Phone Vilma Spangler MD Primary Care Provider +1- [phone] Reason for Visit * Reason Onset Date Comments Follow-up 08/07/2013 Encounter Details Date Type Department Care Team (Late st Contact Info) Description 08/07/2013 Telephone The [facility] at [address] [address] Anastasia Fox RN Follow-up Social History Tobacco Use Types [...] Telephone Encounter - Anastasia Fox RN - 08/07/2013 12:57 PM CDT Received CBC results from [facility] collected on 08/05/13. Dr. Chavez unavailable at this time. Plt [id number] K. Current dose of Prednisone 20 mg po daily. Patient needs to follow-up for visit this week per Dr. Chavez's instructions to Charles Rebolledo RN last week. No appt scheduled at this time. Notified Motherand left a message to call back to schedule appt and continue current dose of steroid. RN will follow-up with Dr. Chavez regarding review of lab results and steroid wean. 08/08/13- Reviewed CBC results with Dr. Chavez who ordered to decrease Prednisone to 10 mg po daily and follow-up within next week. Notified Mother about dose change and patient scheduled to RTC on Wednesday, 08/15 at [address] Chavez. Placed on schedule by Juanita. documented in this encounter Plan of Treatment Not on file documented as of this encounter Visit Diagnoses Not on filedocumented in this encounter Care Teams Stage Settings Painter Relationship Specialty Start Date End Date Vilma Spangler MD [address] [place] [id number] PCP - General 01/05/11 documented as of this encounter
--- OUTSIDE RECORDS SUMMARY | 2024-10-28 05:55 | XMS_ITS | Encounter Summary ---
Author Organization [facility] Address [address] [place] [address] Care Team Providers Care Sheet Cutting Operator Name Role Phone Vilma Spangler MD Primary Care Provider +1- [phone] Encounter Details Date Type Department Care Team (Late st Contact Info) Description 11/30/2013 Hospital Outpatient Visit Historic [facility] [address] [place] [address] Kaycee Alexandre MD [address] [place] [address] [address] [place] [address] Discharge Disposition: Home or Self Care Social [...] on filedocumented in this encounter Care Teams Sheet Cutting Operator Relationship Specialty Start Date End Date Vilma Spangler MD [address] [address] PCP - General 01/05/11 documented as of this encounter
--- OUTSIDE RECORDS SUMMARY | 2024-10-28 05:55 | XMS_ITS | Encounter Summary ---
Author Organization [facility] Address [address] [facility] [address] Care Team Providers Care Seed Laboratory Technician Name Role Phone Vilma Spangler MD Primary Care Provider +1- [phone] Reason for Visit * Reason Onset Date Comments Follow-up 11/16/2013 Encounter Details Date Type Department Care Team (Late st Contact Info) Description 11/16/2013 Telephone [facility] - Transplant Services [address] [place] [phone] Batool Mcdermott, RN Follow-up Social History Tobacco Use Types [...] Telephone Encounter - Batool Mcdermott, RN - 11/16/2013 2:22 PM SURGERY SCHEDULER Called Beka's mom to verify new patient appointments at [facility] had been rescheduled. Mom states theyhave a liver transplant appointment at the end of this month and hematology appointment in December. Told mom that records had been faxed to [facility]. If they need any other assistance, instructed mom to call the transplant office. Understanding verbalized. ERY SCHEDULER documented in this encounter Plan of Treatment Not on file documented as of this encounter Visit Diagnoses Not on filedocumented in this encounter Care Teams Seed Laboratory Technician Relationship Specialty Start Date End Date Vilma Spangler MD [address] [address] PCP - General 01/05/11 documented as of this encounter
--- OUTSIDE RECORDS SUMMARY | 2024-10-28 05:55 | XMS_ITS | Referral Summary ---
Author Organization [facility] [email or web address] Address [address] [place] [address] Care Team Providers Care Dehydrator Operator Name Role Phone Vilma Spangler MD Primary Care Provider +1 [phone] Source Comments [email or web address],non-owned Affiliates and Associated Physician Practices is amultiple site organization consisting of ambulatory clinics and hospital sitesin [place], [place], [place] and [place]. This disclosure is being madepursuant to the Care Everywhere program and may not contain all information available regarding this patient. Last updated 18.[employer] [email or web address] Allergies No known active allergies Medications * Be aware that medications may not be up to date on this document. Alwaysverify current medications with the patient. Medication Sig Dispensed Refills Start Date End Date Status acetaminophen (TYLENOL) 325 MG tablet Take 325 mg by mouth every 4 hours as needed. Maximum allowable Acetaminophen amount = 4 Grams (4000 mg) / 24 hours. Active tacrolimus (PROGRAF) 0.5 MG capsuleIndications: Liver replaced by transplant (HCC) Take 1 Cap by mouth 2 times daily. 60 Cap 5 07/18/2013 Active sulfamethoxazole-tr imethoprim (BACTRIM DS; SEPTRA DS) 800-160 MG tabletIndications:L iver replaced by transplant (HCC) Take 1 Tab by mouth once daily. 30 Tab 5 07/24/2013 Active predniSONE (DELTASONE) 20 MG tablet Take 10 mg by mouth once daily. 08/08/2013 Active Active Problems Patient Care Coordination No te Formatting of this note migh t be different from the original. 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 He has been followed by Heme/onc receiving chronic steroids and IVIG without significant improvement. Decision made to remove spleen and pt planned for laparoscopic splenectomy 12/23, but it was complicated by relation to liver and size of vessels. Patient had large amount of blood loss and received 2 units PRBC and 2 unit platelets while in OR. Plt prior to procedure 116, immediately post op 225 and this am up to 256. 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 Needs levels followed, and GI to recommend goal values. Cellulitis and abscess of face 03/08/2012 Overview (03/12/2012): Left upper face, involvement of upper and lower eye lids, area of induration, no fluctuance. Normal eye exam. Afebrile. CBC was reassuring. Blood culture neg. Ultrasound suggested subcutaneous abscess. Surgery evaluated pt in ED and did not think drainage necessary. No evidence of involvement of the intraorbital structures. IV clindamycin was given with marked improvement the next day. Swelling, redness, and pain all reduced. Patient discharged home with PO clindamycin x 10 day course total. Lymphadenopathy 03/08/2012 Overview (03/12/2012): Many small lymph nodes along the anterior cervical chain. Left sided submandibular mass at the angle of mandible, with bumpy surface, nontender. CBC, LDH and Uric acid levels reassuring and CXR does not demonstrate mediastinal lymphadenopathy. Results discussed with Dr. Chavez. Okay to discharge and follow up in H/O clinic in 1 wk. 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 Last infusion Wednesday 12/20. Neutropenia associated with autoimmune disease 0 02/17/2010 Immunizations Name Administration Dates Next Due MENINGOCOCCAL CONJUGATE (MCV4P) 11/11/2012 PNEUMOCOCCAL PPSV23 11/11/2012 Social History Tobacco Use Types Packs/Day Years [...] Oxygen Concentration 100% 12/24/2012 7 :00 AM INSPECTOR PAPER PRODUCTS Weight 56.7 kg (125 lb) 01/21/2014 7:52 PM CDT Height 170.2 cm (5' 7 ) 01/21/2014 7:52 PM CDT Body Mass Index 19.58 01/21/2014 7:52 PM CDT Plan of Treatment Not on file Advance Directives Documents on File Type Date Recorded Patient Hoop Cutter Expl anation Adv Directive/Living Will/POA 10/27/2012 9:51 AM * FULL RESUSCITATION (Latest Code Status on File) Date Activated Date Inactivated Comments 11/16/2012 11:32 PM 11/17/2012 7:47 PM Care Teams Dehydrator Operator Relationship Specialty Start Date End Date Vilma Spangler MD [address] [place] [id number] PCP - General 01/05/11
--- OUTSIDE RECORDS SUMMARY | 2024-10-28 05:55 | XMS_ITS | Encounter Summary ---
Author Organization [facility] Address [address] [place] [address] Care Team Providers Care Per Diem Rn Name Role Phone Vilma Spangler MD Primary Care Provider +1- [phone] Reason for Visit * Reason Onset Date Comments LABS ONLY 09/25/2013 Encounter Details Date Type Department Care Team (Late st Contact Info) Description 09/25/2013 Telephone [facility] at [address] [address] Dariela Winston, RN LABS ONLY Social History Tobacco Use [...] encounter Miscellaneous Notes * Telephone Encounter - Dariela Winston RN - 09/25/2013 9:23 AM CST Received CBC from [facility] and reviewed with Dr. Chavez. WBC 8.0 HGB 16.2 PLATS 380 ANC 3712 Mom called with results, she stated that Beka has been complaining of feeling tired. No fever, good appetite and activity. Dr. Chavez aware, and instructed mom to check IGG level at [facility]. Mom verbalized understanding. Batool from transplant aware And IGG level was added to existing orders and faxed to [facility]. Mom notified and agrees with plan and will have Beka check transplant and labs this week and counts in [address] Chavez aware P SOCIAL WORKER documented in this encounter Plan of Treatment Not on file documented as of this encounter Visit Diagnoses Not on filedocumented in this encounter Care Teams Per Diem Rn Relationship Specialty Start Date End Date Vilma Spangler MD [address] [place] [phone] PCP - General 01/05/11 documented as of this encounter
--- OUTSIDE RECORDS SUMMARY | 2024-10-28 05:55 | XMS_ITS | Encounter Summary ---
Author Organization [facility] Address [address] [facility] [place] [address] Care Team Providers Care Tax Intern Name Role Phone Vilma Spangler MD Primary Care Provider [phone]- [phone] Reason for Visit * Reason Onset Date Comments Follow-up 07/26/2013 Encounter Details Date Type Department Care Team (Late st Contact Info) Description 07/26/2013 Telephone [facility] at [address] [address] Anastasia Fox, RN Follow-up Social History Tobacco [...] Telephone Encounter - Anastasia Fox RN - 07/26/2013 4:04 PM CDT Mother called stating patient will be out of town on Wednesday and all next week for his job and cannot make appt on 07/28 for counts. Mother requesting for patient to get local counts at [facility] on 07/29. Notified Dr. Fernandez who agreed. CBC order faxed to [facility] in [place], [place] at [phone]. Will follow-up with Mother once receive CBC results on Wednesday, 07/31 to verify changing Prednisone dose. Mother in agreement with plan and [facility] appt canceled. documented in this encounter Plan of Treatment Not on file documented as of this encounter Visit Diagnoses Not on filedocumented in this encounter Care Teams Tax Intern Relationship Specialty Start Date End Date Vilma Spangler MD [address] [address] PCP - General 01/05/11 documented as of this encounter
--- OUTSIDE RECORDS SUMMARY | 2024-10-28 05:55 | XMS_ITS | Encounter Summary ---
Author Organization [facility] Address [address] [place] [address] Care Team Providers Care House Moving Supervisor Name Role Phone Vilma Spangler MD Primary Care Provider [phone] Reason for Visit * Reason Onset Date Comments MEDICATION REFILL 07/24/2013 Encounter Details Date Type Department Care Team (Late st Contact Info) Description 07/24/2013 Refill [facility] - [address] [address] Felipe Mon MD [address] [place] [id number] MEDICATION REFILL Social History Tobacco Use Types [...] transplant documented in this encounter Care Teams House Moving Supervisor Relationship Specialty Start Date End Date Vilma Spangler MD [address] [address] PCP - General 01/05/11 documented as of this encounter
--- OUTSIDE RECORDS SUMMARY | 2024-10-28 05:55 | XMS_ITS | Encounter Summary ---
Author Organization [facility] Address [address] [facility] [place] [address] Care Team Providers Care Direct Marketing Representative Name Role Phone Vilma Spangler MD Primary Care Provider [phone] Encounter Details Date Type Department Care Team (Latest Contact Info) Description 01/04/2014 Hospital Outpatient Visit Historic [facility] [address] [place] [phone] Discharge Disposition: Home or Self Care Social [...] Procedure Name Priority Date/Time Associated Diagnosis Comments NM LIVER SPECT Routine 01/04/2014 1:06 PM EMPLOYEE SERVICE OFFICER documented in this encounter Results * NM LIVER SPECT (01/04/2014 1:06 PM EMPLOYEE SERVICE OFFICER) Anatomical Region Laterality Modality Abdomen Other Impressions 01/04/2014 2:42 PM EMPLOYEE SERVICE OFFICER Impression: 1. No evidence of accessory spleen. 2. Post-transplant changes in the liver, with uniform parenchymal tracer distribution. This report was approved ??by Hans Miller M.D. ?? on 01/04/2014 2:28 PM . I, Dr. MARTINEZ PATEL D.O. have personally reviewed and interpreted this examination/study. This report was electronically signed by MARTINEZ PATEL D.O. ??on 01/04/2014 2:42 PM . Narrative 01/04/2014 2:42 PM EMPLOYEE SERVICE OFFICER Procedure: ??Liver spleen scan. History: 18-year-old male [...] PM . Davida Vilchis MD NM ORDERABLES documented in this encounter Visit Diagnoses Diagnosis Immune thrombocytopenic purpura (HCC) Immune thrombocytopenic purpura documented in this encounter Care Teams Direct Marketing Representative Relationship Specialty Start Date End Date Vilma Spangler MD [address] [place] [phone] PCP - General 01/05/11 documented as of this encounter
--- OUTSIDE RECORDS SUMMARY | 2024-10-28 05:55 | XMS_ITS | Encounter Summary ---
Author Organization [facility] Address [address] [place] [address] Care Team Providers Care Window Glazier Name Role Phone Vilma Spangler MD Primary Care Provider [phone] Reason for Visit * Reason Onset Date Comments Results 09/26/2013 Encounter Details Date Type Department Care Team (Late st Contact Info) Description 09/26/2013 Telephone [facility] at [address] [address] Dariela Winston RN Results Social History Tobacco Use Types [...] Miscellaneous Notes * Telephone Encounter - Dariela Winston, RN - 09/26/2013 2:31 PM CST Received labs from [facility] and reviewed with Dr. Chavez. IGG [id number] Mom called with results and stated that Beka has been complaining of feeling tired. No fevers, good po. Beka will return to clinic 10/03 for IVIG infusion. Placed [facility] per [place]. Mom verbalized understanding and agrees with plan. HES SHAKER documented in this encounter Plan of Treatment Not on file documented as of this encounter Visit Diagnoses Not on filedocumented in this encounter Care Teams Window Glazier Relationship Specialty Start Date End Date Vilma Spangler MD [address] [phone] PCP - General 01/05/11 documented as of this encounter
--- OUTSIDE RECORDS SUMMARY | 2024-10-28 05:55 | XMS_ITS | Encounter Summary ---
Author Organization [facility] Address [address] [place] [address] Care Team Providers Care Wireless Watcher Name Role Phone Vilma Spangler MD Primary Care Provider [phone] Reason for Visit * Reason Onset Date Comments Scheduling 08/01/2013 Encounter Details Date Type Department Care Team (Late st Contact Info) Description 08/01/2013 Telephone [facility] at [address] [address] Sherry Rebolledo RN Scheduling Social History Tobacco Use Types Packs/Day Years [...] Telephone Encounter - Sherry Rebolledo RN - 08/01/2013 9:21 AM CDT Patient's mother called and was wanting to know if she could get labs drawn on 08/05/13. Notified Dr. Chavez who approved and instructed mother that we would call her on 08/07/13 to follow up with any medication dosing changes. Patient's mother agreed to instructions. documented in this encounter Plan of Treatment Not on file documented as of this encounter Visit Diagnoses Not on filedocumented in this encounter Care Teams Wireless Watcher Relationship Specialty Start Date End Date Vilma Spangler MD [address] [address] PCP - General 01/05/11 documented as of this encounter
--- OUTSIDE RECORDS SUMMARY | 2024-10-28 05:55 | XMS_ITS | Encounter Summary ---
Author Organization [facility] Address [address] [place] [address] Care Team Providers Care Owner Operator Name Role Phone Vilma Spangler MD Primary Care Provider [phone]- [phone] Encounter Details Date Type Department Care Team (Late st Contact Info) Description 01/21/2014 Emergency Department Historic [facility] EMERGENCY DEPARTMENT [address] [place] [address] Ascencion Bahena MD [facility] [address] [facility] [place] [address] Discharge Disposition: Home or Self Care Social [...] 01/21/2014 10:49 PM CDT Inhaled Oxygen Concentration - - Weight 56.7 kg (125 lb) 01/21/2014 7:52 PM CDT Height 170.2 cm (5' 7 ) 01/21/2014 7:52 PM CDT Body Mass Index 19.58 01/21/2014 7:52 PM CDT documented in this encounter Miscellaneous Notes * Letter - Ascencion Bahena MD - 01/21/2014 10:58 PM CDT Letter Signed by Ancelmo hWipple MD on Author: Ancelmo Whipple MD Service: (none) Author Type: (none) Date of Service: Filed: Note Type: Letter Status: (Other) [facility] EMERGENCY DEPARTMENT [address] [place] [address] Dept: [phone] Dept January 21, 2014 Patient Name: Beka Nichols Patient : [id number] Beka was seen in [facility] emergency room for a medical condition. Beka will benefit from bed rest, he may go back to work on 01/24/2014 unless otherwise updated by another medical professional. Ancelmo Whipple MD documented in this encounter Plan of Treatment Not on file documented as of this encounter Procedures Procedure Name Priority Date/Time Associated Diagnosis Comments XR CHEST 2VW STAT 01/21/2014 8:58 PM CDT PT-INR [facility] STAT 01/21/2014 8:45 PM CDT CULTURE BLOOD Routine 01/21/2014 8:40 PM CDT TACROLIMUS LEVEL Routine 01/21/2014 8:25 PM CDT CULTURE BLOOD STAT 01/21/2014 8:25 PM CDT TYPE + SCREEN PANEL STAT 01/21/2014 8 :25 PM CDT CBC W AUTO DIFFERENTIAL STAT 01/21/2014 8:25 PM CDT COMPREHENSIVE METABOLIC PANEL STAT 01/21/2014 8:25 PM CDT documented in this encounter Results * XR CHEST 2VW (01/21/2014 8:58 PM CDT) Anatomical Region Laterality Modality Chest Other Impressions 01/22/2014 7:48 AM CDT Impression: No acute pulmonary disease. Report dictated by Dl Carpenter DO (president mortgage company). Dr. KELLY Ramirez M.D. have personally reviewed [...] disease. Report dictated by Dl Carpenter DO (president mortgage company). Dr. KELLY Ramirez M.D. have personally reviewed and interpreted thisexamination/study. This report was electronically signed by KELLY HARRISON M.D. on 01/22/20147:48 AM . Ascencion Bahena MD DIAGNOSTIC IMAGING O RDERABLES * PT-INR [facility] (01/21/2014 8:45 PM CDT) PT 13.5 12.1 - 14.8 SECONDS [facility] INR 1.0 [facility] Comment: SUGGESTED THERAPEUTIC RANGE FOR LOW-INTENSITY COUMADIN THERAPY FOR VENOUS THROMBOEMBOLISM IS INR 2.0-3.0. ??FOR HIGH RISK PATIENTS (MITRAL VALVE PROSTHESIS, ATRIAL FIBRILLATION, HISTORY OF TIA/STROKE), SUGGESTED THERAPEUTIC RANGE IS INR 2.5-3.5. 01/21/2014 8:45 PM CDT 01/21/2014 8:57 PM CDT Radha Nam MD LAB - COAGULATION OR DERABLES Performing Organization Address [facility] Co de Phone Number [address] [phone] * CULTURE BLOOD (01/21/2014 8:40 PM CDT) Culture Blood NO GROWTH AFTER 5 DAYS. [facility] Blood specimen (specimen) (Venous, Peripheral) 01/21/2014 8:40 PM CDT 01/21/2014 8:52 PM CDT Narrative [facility] - 01/27/2014 1:53 PM CDT Draw 15 minutes after Culture 1 from a different site Specimen Type->Blood Ascencion Bahena MD LAB - MICROBIOLOGY O SARAH Performing Organization Address [facility] Co de Phone Number [address] [phone] * CULTURE BLOOD (01/21/2014 8:25 PM CDT) Culture Blood NO GROWTH AFTER 5 DAYS. [facility] Blood specimen (specimen) (Venous, Peripheral) 01/21/2014 8:25 PM CDT 01/21/2014 8:53 PM CDT Narrative [facility] - 01/27/2014 1:53 PM CDT Specimen Type->Blood Ascencion Bahena MD LAB - MICROBIOLOGY O SARAH Performing Organization Address [facility] [place] [place] [address], [facility] [phone] * (ABNORMAL) TACROLIMUS LEVEL (01/21/2014 8:25 PM CDT) Tacrolimus 2.9(L) 10.0 - 20.0 ng/mL [facility] 01/21/2014 8:25 PM CDT 01/21/2014 10:32 PM CDT Ascencion Bahena MD LAB - THERAPEUTIC DR MCCLELLAN MONITORING ORDERABLES [facility] [address] [phone] * (ABNORMAL) CBC W AUTO DIFFERENTIAL (01/21/2014 8:25 PM CDT) WBC 6.0 3.5 - 10.5 10^3/uL [facility] RBC 4.31 4.30 - 5.70 10^6/uL [facility] Hemoglobin 14.3 13.5 - 17.5 g/dL [facility] Hematocrit 39.8 39.0 - 50.0 % [facility] MCV 92.3 81.0 - 97.0 FL [facility] MCH 33.2 28.0 - 34.0 PG [facility] MCHC 35.9 32.0 - 36.0 G/DL [facility] Platelet 61(L) 150 - 400 10^3/uL [facility] Comment:CHECKED BY PERIPHERA L BLOOD SMEAR. Comment Platelet COMMENT [facility] Comment: WHEN REPORTED, PLT. COUNT HAS BEEN CONFIRMED BY SLIDE REVIEW. RDW 14.5 11.2 - 14.8 % [facility] RDW-SD 49.5 36 - 50 FL [facility] MPV 11.4 9.3 - 12.8 FL [facility] Neutrophils % 29.8(L) 35.0 - 70.0 % [facility] Lymphocytes % 46.5 19.7 - 55.1 % [facility] Monocytes % 21.7(H) 3 - 15 % [facility] Eosinophils % 1.8 0.0 - 6.0 % [facility] Basophils % 0.2 0.0 - 1.5 % [facility] Neutrophils Absolute 1.8 1.7 - 7.0 10^3/uL [facility] Lymphocyte Absolute 2.8 0.8 - 2.9 10^3/uL [facility] Monocytes Absolute 1.3(H) 0.14 - 0.66 10^3/uL [facility] Eosinophils Absolute 0.11 0.00 - 0.22 10^3/uL [facility] Basophils Absolute 0.01(L) 0.02 - 0.06 10^3/uL [facility] Differential Type REVIEWED [facility] Comment:AUTO DIFFERENTIAL MANUEL S BEEN CONFIRMED BY MANUAL REVIEW. Platelet Estimate DEC,RBC MORPH NORMAL [facility] Venous blood specimen (specimen) 01/21/2014 8:25 PM CDT 01/21/2014 8:50 PM CDT Ascencion Bahena MD LAB - HEMATOLOGY ORD ERABLES [facility] [address] [phone] * (ABNORMAL) COMPREHENSIVE METABOLIC PANEL (01/21/2014 8:25 PM CDT) BUN 12 7 - 26 mg/dL [facility] Creatinine 0.8 0.6 - 1.2 mg/dL [facility] eGFR by MDRD > 60 ML/MIN [facility] Comment: Chronic kidney disease: ??<60 ml/min Kidney failure: ?<15 ml/min Based on BSA of 1.73m2. Sodium 139 136 - 145 mmol/L [facility] Potassium 3.6 3.5 - 4.5 mmol/L [facility] Chloride 105 98 - 107 mmol/L [facility] CO2 25 22 - 29 mmol/L [facility] Glucose 106 70 - 115 mg/dL [facility] Calcium 9.1 8.4 - 10.2 mg/dL [facility] Protein Total 6.7 6.0 - 8.3 g/dL [facility] Albumin 3.3(L) 3.4 - 5.0 g/dL [facility] Bilirubin Total 0.4 0.2 - 1.2 mg/dL [facility] Alkaline Phosphatase 163(H) 40 - 150 Units/L [facility] ALT 35 0 - 55 Units/L [facility] AST 29 5 - 34 Units/L [facility] Anion Gap 13 8 - 18 [facility] BUN/Creatinine Ratio 15 7 - 23 [facility] Osmolality Calculation 273 270 - 300 mOsm/kg [facility] Albumin/Globulin Ratio 1.0(L) 1.1 - 2.3 [facility] Serum 01/21/2014 8:25 PM CDT 01/21/2014 8:50 PM CDT Ascencion Bahena MD LAB - CHEMISTRY GRACEE BETTY Performing Organization Address [facility]/ZIP Co de Phone Number [address] [phone] * TYPE + SCREEN PANEL (01/21/2014 8:25 PM CDT) Interpretation ABO/Rh Patient A POS [facility] Antibody Screen NEGATIVE [facility] Venous blood specimen (specimen) 01/21/2014 8:25 PM CDT 01/21/2014 8:59 PM CDT Ascencion Bahena MD LAB - BLOOD BANK ORD ERABLES Performing Organization Address [facility] Co de Phone Number [address] [phone] documented in this encounter Visit Diagnoses Diagnosis Other malaise and fatigue documented in this encounter Care Teams Owner Operator Relationship Specialty Start Date End Date Vilma Spangler MD [address] [address] PCP - General 01/05/11 documented as of this encounter
--- OUTSIDE RECORDS SUMMARY | 2024-10-28 05:55 | XMS_ITS | Encounter Summary ---
Author Organization [facility] Address [address] [place] [address] Care Team Providers Care Taker Off Braker Machine Name Role Phone Vilma Spangler MD Primary Care Provider [phone]- [phone] Reason for Visit * Reason Onset Date Comments Results 08/31/2013 Encounter Details Date Type Department Care Team (Late st Contact Info) Description 08/31/2013 Telephone [facility] at [address] [address] Dariela Winston RN Results Social [...] Telephone Encounter - Dariela Winston RN - 08/31/2013 2:41 PM CDT Received CBC from [facility] and reviewed with Dr. Chavez WBC 10.1 HGB 14.6 PLTS 380 [facility] [id number] Mom called with results and instructed to repeat counts in [address] Chavez contacting GI and Technology Services Manager at [facility] concerning futher follow-up. Mom verbalizes understanding and agrees with plan. Will call with any concerns or questions. documented in this encounter Plan of Treatment Not on file documented as of this encounter Visit Diagnoses Not on filedocumented in this encounter Care Teams Taker Off Braker Machine Relationship Specialty Start Date End Date Vilma Spangler MD [address] [place] [phone] PCP - General 01/05/11 documented as of this encounter
--- OUTSIDE RECORDS SUMMARY | 2024-10-28 05:55 | XMS_ITS | Encounter Summary ---
Author Organization [facility] Address [address] [place] [address] Care Team Providers Care Electric Meter Repairer Helper Name Role Phone Vilma Spangler MD Primary Care Provider [phone]- [phone] Reason for Visit * Reason Onset Date Comments Results 07/14/2013 Encounter Details Date Type Department Care Team (Late st Contact Info) Description 07/14/2013 Telephone [facility] at [address] [address] Anastasia Fox, RN Results Social History Tobacco Use Types Packs/Day Years Used Date Smoking Tobacco: Never Smokeless Tobacco: Never Alcohol Use Standard Drinks/Week Comments No 0 (1 standard drink = 0.6 oz pur e alcohol) Sex and Gender Information Value Date Recorded Sex Assigned at Not on file Gender Identity Not on file Sexual Orientation Not on file documented as of this encounter Progress Notes * Anastasia Fox RN - 07/14/2013 1:34 PM CDT Patient to RTC for labs on Wednesday, 07/21. Placed on Xin schedule and Mother notified per Dom. documented in this encounter Plan of Treatment Not on file documented as of this encounter Visit Diagnoses Not on filedocumented in this encounter Care Teams Electric Meter Repairer Helper Relationship Specialty Start Date End Date Vilma Spangler MD [address] [address] PCP - General 01/05/11 documented as of this encounter
--- OUTSIDE RECORDS SUMMARY | 2024-10-28 05:55 | XMS_ITS | Encounter Summary ---
Author Organization [facility] Address [address] [place] [address] Care Team Providers Care Bill Sorter Name Role Phone Vilma Spangler MD Primary Care Provider [phone] Encounter Details Date Type Department Care Team (Latest Contact Info) Description 10/03/2013 8:04 AM ORDAINED MINISTER - 10/03/2013 11:59 PM ORDAINED MINISTER Hospital Encounter [facility] at [address] [address] Susan Dodd APRN-CNP [facility] [address] [facility] [address] [place] [phone] Discharge Disposition: Home or Self Care Social [...] Sign Reading Time Taken Comments Blood Pressure 94/54 10/03/2013 11:40 AM ORDAINED MINISTER Pulse 65 10/03/2013 11:40 AM ORDAINED MINISTER Temperature 36.7 ??C (98 ??F) 10/03/2013 11:40 AM ORDAINED MINISTER Respiratory Rate 16 10/03/2013 11:40 AM ORDAINED MINISTER Oxygen Saturation - - Inhaled Oxygen Concentration - - Weight 54.7 kg (120 lb 9.5 oz) 10/03/2013 8:12 A M ORDAINED MINISTER Height 170 cm (5' 6.93 ) 10/03/2013 8:12 AM ORDAINED MINISTER Body Mass Index 18.93 10/03/2013 8:12 AM ORDAINED MINISTER documented in this encounter Medications at Time [...] 800-160 MG tabletIndications:Live r replaced by transplant ([facility]) Take 1 Tab by mouth once daily. 30 Tab 5 07/24/2013 tacrolimus (PROGRAF) 0.5 MG capsuleIndications:Silvia er replaced by transplant ([facility]) Take 1 Cap by mouth 2 times daily. 60 Cap 5 07/18/2013 documented as of this encounter Progress Notes * Sherry Rebolledo RN - 10/03/2013 9:32 AM CST Patient arrived to clinic accompanied by mother for visit and IVIG. Patient triaged and assessed byRN. Patient examined by Dr. Fischer. Peripheral IV, 22 gauge placed in left AC. IV flushes and hasblood return. Labs drawn. Occlusive dressing applied. Patient pre-medicated with benadryl and tylenol PO. IVIG administered. Patient completed IVIG, tolerated infusion well. No signs or symptoms of reaction. Patient's peripheral IV flushed and discontinued, catheter intact. Patient D/C home and will get labs drawn in 2 weeks from outside hospital. 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 tacrolimus (PROGRAF) 0.5 MG capsule Active Take 1 Cap by mouth 2 times daily. 60 Cap 5 ??? predniSONE (DELTASONE) 20 MG tablet Active Take 10 mg by mouth once daily. ??? sulfamethoxazole-trimethoprim (BACTRIM DS; SEPTRA DS) 800-160 MG tablet Active Take 1 Tab by mouth once daily. 30 Tab 5 ??? acetaminophen (TYLENOL) 325 MG tablet Active Take 325 mg by mouth every 4 hours as needed. Maximum allowable Acetaminophen amount = 4 Grams (4000 mg) / 24 hours. Interval History Feeling tired over the last week or so, checked IgG yesterday which was low, so here today for IVIG. Developed vesicular rash along right side of chest ~2 weeks ago, initially tender to touch, now less so and vesicles dried; thought it might have been poison marylou. Denies fever or other skin rashes. No bruising/bleeding. Appetite and activity levels normal. Past Medical History: unchanged Family Medical History: unchanged Social History: unchanged Review of Systems: 1) General: Fever: no Wt/appetite change: no Other:see HPI 2) Heme: Bruising: no Other:no 3) Skin: Rash: see HPI Other: no 4) ENT: Congestion:no Rhinorrhea: no Epistaxis: no Sore Throat: no Change in Hearing: no Earache: no Stomatitis: no 5) Resp/CV: Shortness of Breath: no Chest Pain: no Cough:no Palpitation: no Other: no 6) GI: Pain: no Jaundice: no Nausea: no Vomiting: no Diarrhea: no Constipation: no Other: no 7) : Frequency: no Dysuria: no Menorrhagia/Dysmenorrhea: N/A Hematuria: no Other: no 8) Musculo-skeletal: Pain: no Swelling/Edema: no Change in ROM: no Cyanosis: no Other: no 9) Neuro: Headache: no Weakness: no Neuralgia: no Vertigo: no Seizure: no Other: no 10) Psych: Behavior: no Other: no 11) Allergy/Immun: no 12) Pain: no 13) Nutritional Status: good Physical Exam Constitutional: BP 117/74 Pulse 67 Temp 97.7 ??F Resp 16 Ht 1.7 m (5' 6.93 ) Wt 54.7 kg (120 lb 9.5 oz) BMI 18.93 kg/m2 BSA (Calculated): 1.61 General Appearance: W/D, W/N, no acute distress Head: No nasal congestion or discharge Skin: maculo-papular and crusted lesions along dermatome, right chest; no other rash; no bruises orpetechiae Ears: tympanic membranes normal Eyes: anicteric: pupils equal, round, reactive to light; intact extra-ocular movements Mouth/throat: no sores, erythema, exudatesr. Tonsils not enlarged. Neck: supple without masses Lymph nodes: no palpable lymphadenopathy Chest: lungs clear to auscultation Heart: normal S1 and S2, no murmur Back: no spinous or CVA tenderness Abdomen: soft, non-tender, well-healed surgical scar, no masses or hepatosplenomegaly Extremities: no focal swelling or tenderness; full ROM Neuro: Cranial nerves: intact Strength: grossly normal DTR: 2+, symmetric Lab and/or Imaging Studies Recent Results (from the past 24 hour(s)) CBC W AUTO DIFFERENTIAL Collection Time 10/03/13 8:35 AM Component Value Range WBC 6.8 4.4-10.7 x10^9/L RBC 4.85 3.80-5.40 x10^12/L Hgb 16.4 12.0-17.6 gm/dL HCT 44.2 35.2-51.7 % MCV 91.1 80.7-98.3 fl MCH 33.8 26.7-34.0 pg MCHC 37.1 (*) 30.8-35.9 gm/dL Plt Ct 424 (*) 153-416 x10^9/L RDW-CV 13.2 12.1-14.9 % MPV 10.2 9.4-12.9 fl Neutro 50.2 44.0-73.0 % Lymph 29.0 20.0-43.0 % Sequoyah 17.8 (*) 5.0-13.0 % Eos 2.5 0.0-6.0 % Baso 0.1 0.0-2.0 % Immature Grans 0.4 0-1 % Neutro Abs 3.38 2.01-7.14 x10^9/L Lymph Abs 1.96 1.07-3.94 x10^9/L Sequoyah Abs 1.20 (*) 0.26-1.07 x10^9/L Eosin Abs 0.17 0-0.47 x10^9/L Baso Abs 0.01 0-0.08 x10^9/L Immature Grans Abs 0.03 0.00-0.06 x10^9/L HEPATIC FUNCTION PANEL Collection Time 10/03/13 8:35 AM Component Value Range Alk Phos 187 (*) 39-139 U/L ALT/SGPT 122 (*) 6-46 U/L AST/SGOT 78 (*) 8-42 U/L Protein Total 6.7 6.3-8.2 gm/dL Albumin 4.4 3.3-4.9 gm/dL Bili Total 0.6 0.3-1.2 mg/dL Bili Conj Direct 0.25 0.11-0.64 mg/dL VICKEY DIRECT Collection Time 10/03/13 8:35 AM Component Value Range Direct Vickey Negative ALEX IgG Negative Procedures Medication Status Dose Route Frequency Provider ??? dextrose 5 % infusion Active Intravenous Continuous Philip Chavez MD ??? immune globulin (human) (GAMUNEX-C) 10 % infusion 27.5 g Active 0.5 g/kg Intravenous Once Philip Chavez MD ??? diphenhydrAMINE (BENADRYL) tablet 50 mg Active 50 mg Oral Once Philip Chavez MD ??? acetaminophen (TYLENOL) tablet 500 mg Active 500 mg Oral Once Philip Chavez MD ??? diphenhydrAMINE (BENADRYL) tablet ADS Med Active ??? acetaminophen (TYLENOL) tablet ADS Med Active Assessment 18 y.o. male s/p liver transplant with history of autoimmune cytopenias and chronic low IgG, now with fatigue and recurrent hypogammaglobulinemia -normal cbc -negative Vickey Plan IVIG today Follow-Up Recheck labs locally in 2 weeks INED MINISTER documented in this encounter Procedure Notes * Document, Scanned - 12/26/2013 5:55 PM CSTAssociated Order(s): LAB RESULTS ORDER INED MINISTER * Document, Scanned - 10/30/2013 11:44 PM CSTAssociated Order(s): LAB RESULTS ORDER INED MINISTER * Document, Scanned - 10/27/2013 3:02 AM CSTAssociated Order(s): LAB RESULTS ORDER INED MINISTER documented in this encounter Miscellaneous Notes * Miscellaneous Scans - Document, Scanned - 10/04/2013 8:38 PM CST INED MINISTER documented in this encounter Plan of Treatment Not on file documented as of this encounter Procedures Procedure Name Priority Date/Time Associated Diagnosis Comments LAB RESULTS ORDER 12/26/2013 5:5 5 PM ORDAINED MINISTER JOSE-DE LA CRUZ VIRUS PCR QUANTITATIVE WHOLE BLOOD Routine 10/03/2013 8:35 AM ORDAINED MINISTER ITP (idiopathic thrombocytopenic purpura) VICKEY DIRECT ZAHRA 10/03/2013 8:35 AM ORDAINED MINISTER CBC W AUTO DIFFERENTIAL ZAHRA 10/03/2013 8:35 AM ORDAINED MINISTER Hypogammaglobulinemia (HCC) HEPATIC FUNCTION PANEL Routine 10/03/2013 8:35 AM ORDAINED MINISTER ITP (idiopathic thrombocytopenic purpura) documented in this encounter Results * LAB RESULTS ORDER (12/26/2013 5:55 PM ORDAINED MINISTER) Narrative 12/26/2013 5:55 PM ORDAINED MINISTER Ordered by an unspecified provider. Transcriptions Document, Scanned - 10/27/2013 3:02 AM CST Document, Scanned - 10/30/2013 11:44 PM CST Document, Scanned - 12/26/2013 5:55 PM CST Scanned Document LAB - THERAPEUTIC DR ELEUTERIO MONITORING ORDERABLES * VICKEY DIRECT (10/03/2013 8:35 AM ORDAINED MINISTER) Direct Vickey (ALEX) Negative 10/03/2013 11:15 AM ORDAINED MINISTER [facility] Direct Vickey (ALEX) IgG Negative 10/03/2013 11:15 AM [facility] Blood Bank BLOOD SPECIMEN / Unknown 10/03/2013 8:35 AM ORDAINED MINISTER 10/03/2013 8:50 AM ORDAINED MINISTER Philip Chavez MD LAB - BLOOD BANK ORDERABLES [facility] * (ABNORMAL) HEPATIC FUNCTION PANEL (10/03/2013 8:35 AM ORDAINED MINISTER) Alkaline Phosphatase 187(H) 39 - 139 U/L 10/03/2013 9:19 AM [facility] ALT 122(H) 6 - 46 U/L 10/03/2013 9:19 AM [facility] AST 78(H) 8 - 42 U/L 10/03/2013 9:19 AM [facility] Protein Total 6.7 6.3 - 8.2 gm/dL 10/03/2013 9:19 AM [facility] Albumin 4.4 3.3 - 4.9 gm/dL 10/03/2013 9:19 AM [facility] Bilirubin Total 0.6 0.3 - 1.2 mg/dL 10/03/2013 9:19 AM [facility] Bilirubin Direct 0.25 0.11 - 0.64 mg/dL 10/03/2013 9:19 AM [facility] Blood BLOOD SPECIMEN / Unknown 10/03/2013 8:35 AM ORDAINED MINISTER 10/03/2013 8:50 AM ORDAINED MINISTER Philip Chavez MD LAB - CHEMISTRY O RDERABLES [facility] [address] [place] [address] * (ABNORMAL) JOSE-DE LA CRUZ VIRUS PCR QUANTITATIVE WHOLE BLOOD (10/03/2013 8:35 AM ORDAINED MINISTER) Pathologist [facility] Jose-De La Cruz Quant Source Whole Blood 10/05/2013 10:54 AM [facility] Jose-De La Cruz Quant copy/mL Not Quantified cpy/mL 10/05/2013 10:54 AM [facility] Jose-De La Cruz Quant Log Not Quantified log 10/05/2013 10:54 AM [facility] Comment: Not Quantified - EBV DNA was [...] methodologies. Test developed and characteristics determined by [facility] [email or web address]. See Compliance Statement A: [email or web address] Interpretation EBV Quantitative Detected(A) Not Detected 10/05/2013 10:54 AM [facility] Blood specimen (specimen) BLOOD SPECIMEN / Unknown 10/03/2013 8:35 AM ORDAINED MINISTER 10/03/2013 8:50 AM [facility] Philip Chavez MD LAB - SEROLOGY OR DERABLES Performing Organization Address City/State/[facility] Co de Phone Number [facility] [address] [place] [address] * (ABNORMAL) CBC W AUTO DIFFERENTIAL (10/03/2013 8:35 AM [facility]) WBC 6.8 4.4 - 10.7 x10^9/L 10/03/2013 9:39 AM [facility] RBC 4.85 3.80 - 5.40 x10^12/L 10/03/2013 9:39 AM [facility] Hemoglobin 16.4 12.0 - 17.6 gm/dL 10/03/2013 9:39 AM [facility] Hematocrit 44.2 35.2 - 51.7 % 10/03/2013 9:39 AM [facility] MCV 91.1 80.7 - 98.3 fl 10/03/2013 9:39 AM [facility] MCH 33.8 26.7 - 34.0 pg 10/03/2013 9:39 AM [facility] MCHC 37.1(H) 30.8 - 35.9 gm/dL 10/03/2013 9:39 AM [facility] Platelet Count 424(H) 153 - 416 x10^9/L 10/03/2013 9:39 AM [facility] RDW-CV 13.2 12.1 - 14.9 % 10/03/2013 9:39 AM [facility] MPV 10.2 9.4 - 12.9 fl 10/03/2013 9:39 AM [facility] Neutrophils % 50.2 44.0 - 73.0 % 10/03/2013 9:39 AM [facility] Lymphocytes % 29.0 20.0 - 43.0 % 10/03/2013 9:39 AM [facility] Monocytes % 17.8(H) 5.0 - 13.0 % 10/03/2013 9:39 AM [facility] Eosinophils % 2.5 0.0 - 6.0 % 10/03/2013 9:39 AM [facility] Basophils % 0.1 0.0 - 2.0 % 10/03/2013 9:39 AM [facility] Immature Granulocytes 0.4 0 - 1 % 10/03/2013 9:39 AM [facility] Neutrophil Absolute 3.38 2.01 - 7.14 x10^9/L 10/03/2013 9:39 AM [facility] Lymphocytes Absolute 1.96 1.07 - 3.94 x10^9/L 10/03/2013 9:39 AM [facility] Monocytes Absolute 1.20(H) 0.26 - 1.07 x10^9/L 10/03/2013 9:39 AM [facility] Eosinophils Absolute 0.17 0 - 0.47 x10^9/L 10/03/2013 9:39 AM [facility] Basophils Absolute 0.01 0 - 0.08 x10^9/L 10/03/2013 9:39 AM [facility] Immature Granulocytes Absolute 0.03 0.00 - 0.06 x10^9/L 10/03/2013 9:39 AM [facility] Blood BLOOD SPECIMEN / Unknown 10/03/2013 8:35 AM ORDAINED MINISTER 10/03/2013 8:50 AM ORDAINED MINISTER Philip Chavez MD LAB - HEMATOLOGY ORDERABLES [facility] [address] [place] [address] documented in this encounter Visit Diagnoses Diagnosis Hypogammaglobulinemia (HCC)- Primary Hypogammaglobulinaemia, unspecified ITP (idiopathic thrombocytopenic purpura) (HCC) Immune thrombocytopenic purpura documented in this encounter Administered Medications Inactive Administered Medications - up to 3 most recent administrations Medication Order MAR Action Action Date Dose Rate Site acetaminophen (TYLENOL) tablet 500 mg 500 mg, Oral, ONCE, 1 dose, On Wed10/03/13 at 0830, Administer one (1) hour prior to IVIG administration. $ Given 10/03/2013 9:00 AM ORDAINED MINISTER 500 mg acetaminophen (TYLENOL) tablet ADS Med 1 dose, Starting on Wed10/03/13 at 0850, Until Wed10/03/13 at 0900, SHERRY REBOLLEDO: cabinet override diphenhydrAMINE (BENADRYL) tablet 50 mg 50 mg, Oral, ONCE, 1 dose, On Wed10/03/13 at 0830, Administer one (1) hour prior to IVIG administration. $ Given 10/03/2013 9:00 AM ORDAINED MINISTER 50 mg diphenhydrAMINE (BENADRYL) tablet ADS Med 1 dose, Starting on Wed10/03/13 at 0850, Until Wed10/03/13 at 0900, SHERRY REBOLLEDO: cabinet override immune globulin (human) (GAMUNEX-C) 10 % infusion 27.5 g 27.5 g (0.5 g/kg ? 54.7 kg), Intravenous, ONCE, 1 dose, On Wed10/03/13 at 1000, Intravenous, CONTINUOUS for 2 hours, Initiate infusion [...] one half the previous rate. $ Given 10/03/2013 9:18 AM ORDAINED MINISTER 27.5 g documented in this encounter Care Teams Bill Sorter Relationship Specialty Start Date End Date Vilma Spangler MD [address] [id number] PCP - General 01/05/11 documented as of this encounter
--- OUTSIDE RECORDS SUMMARY | 2024-10-28 05:55 | XMS_ITS | Encounter Summary ---
Author Organization [facility] Address [address] [place] [address] Care Team Providers Care Pipelayer Name Role Phone Vilma Spangler MD Primary Care Provider [phone] Reason for Visit * (Routine) - Closed Specialty Diagnoses / Procedures Referred By Sascha rey Referred To Contact Oncology-Medical [facility] [address] [address] Referral ID Status Reason Start Date Expiration Date Visits Re quested Visits Authorized [id number] Closed 05/16/2013 11/12/2013 1 1 Encounter Details Date Type Department Care Team (Late st Contact Info) Description 05/16/2013 7:30 AM CDT - 05/16/2013 11:59 PM CDT Hospital Encounter [facility] at [address] [address] Philip Chavez MD [address] [place] [phone] Discharge Disposition: Home or Self Care Social [...] Sign Reading Time Taken Comments Blood Pressure 102/65 05/16/2013 8:20 AM CDT Pulse 66 05/16/2013 8:20 AM CDT Temperature 36.6 ??C (97.8 ??F) 05/16/2013 8:20 AM CD T Respiratory Rate 12 05/16/2013 8:20 AM CDT Oxygen Saturation 99% 05/16/2013 8:20 AM CDT Inhaled Oxygen Concentration - - Weight 54.2 kg (119 lb 7.8 oz) 05/16/2013 8:20 A M CDT Height 169.4 cm (5' 6.69 ) 05/16/2013 8:20 AM CD T Body Mass Index 18.89 05/16/2013 8:20 AM CDT documented in this encounter Discharge Instructions * Patient Instructions* Ileana Goode APRN-CNP - 05/16/2013 10:16 AM CDT Please bring your medications with you to each visit. documented in this encounter Medications at Time of Discharge Medication Sig Dispensed Refills Start Date End Date acetaminophen (TYLENOL) 325 MG tablet Take 325 mg by mouth every 4 hours as needed. Maximum allowable Acetaminophen amount = 4 Grams (4000 mg) / 24 hours. sulfamethoxazole-trim ethoprim (BACTRIM DS; SEPTRA DS) 800-160 MG tabletIndications:Silvia er replaced by transplant ([facility]) Take 1 Tab by mouth once daily. 30 Tab 4 01/30/2013 07/18/2013 tacrolimus (PROGRAF) 0.5 MG capsuleIndications:Li ruben replaced by transplant ([facility]) Take 1 Cap by mouth 2 times daily. 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 tacrolimus (PROGRAF) 0.5 MG capsule Take 1 Cap by mouth 2 times daily. 60 Cap 4 ??? sulfamethoxazole-trimethoprim (BACTRIM DS; SEPTRA DS) 800-160 MG tablet Take 1 Tab by mouth once daily. 30 Tab 4 ??? acetaminophen (TYLENOL) 325 MG tablet Take 325 mg by mouth every 4 hours as needed. Maximum allowable Acetaminophen amount = 4 Grams (4000 mg) / 24 hours. Review of Systems: 1) General Fever: no Wt/appetite change: no 2) Hem Bruising: denies Other:no 3) Skin Rash: Rash to scalp. Scattered circular dry patches 4) ENT Congestion:no Rhinorrhea: no Epistaxis: no [...] 13) Nutritional Status good Interval History Beka has been well. No fevers. Appetite OK. Energy level OK. Last IVIG 6 weeks ago. Only concern is scattered rash on scalp. Rings/dry patches. Not sleeping well for some time now. Difficulty falling asleep. Uncertain why. Past Medical History: unchanged Family Medical History: unchanged Physical Exam Constitutional: BP 102/65 Pulse 66 Temp 97.8 ??F Resp 12 Ht 1.694 m (5' 6.69 ) Wt 54.2 kg (119 lb 7.8 oz) BMI 18.89 kg/m2 SpO2 99% Body surface area is 1.60 meters squared. General Appearance: Alert, NAD. Talkative Head: No nasal congestion or discharge Skin: no rashes, bruises, or petechiae noted Ears: tympanic membranes normal Eyes: anicteric: pupils equal, round, reactive to light; Mouth/throat: no sores, erythema, exudates, or mucosal pallor. Tonsils not enlarged. Lymph nodes: no palpable lymphadenopathy Chest: lungs clear to auscultation Heart: normal S1 and S2, no murmur Abdomen: soft, non-tender to palpation, no masses, abdominal incision intact, Genitalia: deferred Extremities: no focal swelling or tenderness; full ROM Neuro: grossly intact Performance Score: [place]: 100 - fully active, normal Lab and/or Imaging Studies Recent Results (from the past 72 hour(s)) GGT Collection Time 05/16/13 8:14 AM Component Value Range GGT 93 (*) 8-69 U/L COMPREHENSIVE METABOLIC PANEL Collection Time 05/16/13 8:14 AM Component Value Range Glucose 88 70-105 mg/dL Sodium 141 136-145 mmol/L Potassium 4.0 3.5-5.1 mmol/L Chloride 108 (*) 98-107 mmol/L CO2 25 22-29 mmol/L Calcium 9.48 9.08-10.48 mg/dL Anion Gap 8 5-20 mmol/L BUN 10.0 5.3-18.7 mg/dL Creatinine 0.97 0.61-1.07 mg/dL eGFR by MDRD >60 >60 ml/min/1.73m2 eGFR by MDRD AFR AMER >60 >60 ml/min/1.73m2 Alk Phos 166 (*) 39-139 U/L ALT/SGPT 74 (*) 6-46 U/L AST/SGOT 48 (*) 8-42 U/L Protein Total 6.7 6.3-8.2 gm/dL Albumin 4.0 3.3-4.9 gm/dL Bili Total 0.5 0.3-1.2 mg/dL TACROLIMUS LEVEL Collection Time 05/16/13 8:14 AM Component Value Range Tacrolimus Gastroenterology 3.5 2.0-15.0 ng/mL CBC W AUTO DIFFERENTIAL Collection Time 05/16/13 8:14 AM Component Value Range WBC 8.4 4.4-10.7 x10^9/L RBC 4.70 3.80-5.40 x10^12/L Hgb 15.3 12.0-17.6 g/dL HCT 41.8 35.2-51.7 % MCV 88.9 80.7-98.3 fl MCH 32.6 26.7-34.0 pg MCHC 36.6 (*) 30.8-35.9 gm/dL Plt Ct 367 153-416 x10^9/L RDW-CV 14.9 12.1-14.9 % MPV 10.2 9.4-12.9 fl Neutro 52 44-73 % Lymph 27 20-43 % [place] 19 (*) 5-13 % Eos 2 0-6 % Baso 1 0-2 % Immature Grans 0.4 0-1 % Neutro Abs 4.35 2.01-7.14 x10^9/L Lymph Abs 2.22 1.07-3.94 x10^9/L Harford Abs 1.57 (*) 0.26-1.07 x10^9/L Eosin Abs 0.15 0-0.47 x10^9/L Baso Abs 0.04 0-0.08 x10^9/L Immature Grans Abs 0.03 0.00-0.06 x10^9/L IGG BLOOD Collection Time 05/16/13 8:14 AM Component Value Range IgG 492 756-2522 mg/dL Assessment Beka Nichols is a 18 y.o. male with history of liver transplant, autoimmunne thrombocytopenia/neutropenia, doing well IgG normal. CBC normal. History-Beka is a 18 yo male with [...] IgG, CMP, 2. Hold on IVIG for now 3. Fungal scalp culture for tinea 4. Lotrimin BID to scalp for now. 5. Suggested consistent sleep schedule, dark room, no TV on while sleeping. Suggested following up with PMD regarding sleep issues if persistent. * Ileana Goode APRN-ELECTRONIC SPECIALIST - 05/16/2013 10:56 AM CDT Pt arrived in clinic, triaged, and assessed by RN. Here for scheduled visit and possible IVIG. No complaints per patient to this RN. Left AC 22 gauge peripheral IV started without difficulty. Positive blood return noted and labs obtained. NS flushes easily and dressing applied. Examined per Dr. Chavez. IGG 624, WBC 8.4, Hgb 15.3, Plt 367 Dr. Chavez stated that he does not need IVIG. IV removed, catheter intact and bandaid applied by Subha Caldwell RN. Nare fungal cultures sent. Discharge instructions given to patient to RTC in 1 month for Visit and possible IVIG. Pt d/c'd home ambulatory with mom. documented in this encounter Miscellaneous Notes * Miscellaneous Scans - Document, Scanned - 05/17/2013 2:52 PM CDT documented in this encounter Plan of Treatment Not on file documented as of this encounter Procedures Procedure Name Priority Date/Time Associated Diagnosis Comments CULTURE FUNGUS SKIN HAIR NAIL+FUNGUS SMEAR Routine 05/16/2013 10:13 AM CDT TACROLIMUS LEVEL Routine 05/16/2013 8:14 AM CDT History of liver transplant (HCC) JOSE-DE LA CRUZ VIRUS PCR QUANT BLOOD/CSF Routine 05/16/2013 8:14 AM CDT History of liver transplant (HCC) CBC W AUTO DIFFERENTIAL STAT 05/16/2013 8:14 AM CDT History of liver transplant (HCC) COMPREHENSIVE METABOLIC PANEL Routine 05/16/2013 8:14 AM CDT History of liver transplant (HCC) GGT Routine 05/16/2013 8:14 AM CDT History of liver transplant (HCC) IGG BLOOD STAT 05/16/2013 8:14 AM CDT Hypogammaglobuline justine (HCC) documented in this encounter Results * CULTURE FUNGUS SKIN HAIR NAIL+FUNGUS SMEAR (05/16/2013 10:13 AM CDT) Pathologist [facility] Culture No Fungus Isolated 06/11/2013 11:15 AM CDT [facility] Fungus Smear No yeast or hyphae seen 06/11/2013 11:15 AM CDT [facility] Microbiology TISSUE SPECIMEN FROM SKIN / Unknown 05/16/2013 10:13 AM CDT 05/16/2013 10:30 AM CDT Philip Chavez MD LAB - MICROBIOLOG Y ORDERABLES Performing Organization Address City/[facility]/ZIP Co de Phone Number [facility] [address] [place] * IGG BLOOD (05/16/2013 8:14 AM CDT) Pathologist [facility] IgG 624 540 - 1,822 mg/dL 05/16/2013 8:50 AM CDT [facility] Blood specimen (specimen) BLOOD SPECIMEN / Unknown 05/16/2013 8:14 AM CDT 05/16/2013 8:25 AM CDT Philip Chavez MD LAB - CHEMISTRY O RDERABLES Performing Organization Address City/[facility]/ZIP Co de Phone Number [facility] [address] [place] [phone] * (ABNORMAL) CBC W AUTO DIFFERENTIAL (05/16/2013 8:14 AM CDT) Pathologist [facility] WBC 8.4 4.4 - 10.7 x10^9/L 05/16/2013 8:33 AM CDT [facility] RBC 4.70 3.80 - 5.40 x10^12/L 05/16/2013 8:33 AM CDT [facility] Hemoglobin 15.3 12.0 - 17.6 g/dL 05/16/2013 8:33 AM CDT [facility] Hematocrit 41.8 35.2 - 51.7 % 05/16/2013 8:33 AM CDT [facility] MCV 88.9 80.7 - 98.3 fl 05/16/2013 8:33 AM [facility] MCH 32.6 26.7 - 34.0 pg 05/16/2013 8:33 AM [facility] MCHC 36.6(H) 30.8 - 35.9 gm/dL 05/16/2013 8:33 AM [facility] Platelet Count 367 153 - 416 x10^9/L 05/16/2013 8:33 AM [facility] RDW-CV 14.9 12.1 - 14.9 % 05/16/2013 8:33 AM [facility] MPV 10.2 9.4 - 12.9 fl 05/16/2013 8:33 AM [facility] Neutrophils % 52 44 - 73 % 05/16/2013 8:33 AM [facility] Lymphocytes % 27 20 - 43 % 05/16/2013 8:33 AM [facility] Monocytes % 19(H) 5 - 13 % 05/16/2013 8:33 AM [facility] Eosinophils % 2 0 - 6 % 05/16/2013 8:33 AM [facility] Basophils % 1 0 - 2 % 05/16/2013 8:33 AM [facility] Immature Granulocytes 0.4 0 - 1 % 05/16/2013 8:33 AM [facility] Neutrophil Absolute 4.35 2.01 - 7.14 x10^9/L 05/16/2013 8:33 AM [facility] Lymphocytes Absolute 2.22 1.07 - 3.94 x10^9/L 05/16/2013 8:33 AM [facility] Monocytes Absolute 1.57(H) 0.26 - 1.07 x10^9/L 05/16/2013 8:33 AM [facility] Eosinophils Absolute 0.15 0 - 0.47 x10^9/L 05/16/2013 8:33 AM [facility] Basophils Absolute 0.04 0 - 0.08 x10^9/L 05/16/2013 8:33 AM [facility] Immature Granulocytes Absolute 0.03 0.00 - 0.06 x10^9/L 05/16/2013 8:33 AM [facility] Blood specimen (specimen) BLOOD SPECIMEN / Unknown 05/16/2013 8:14 AM CDT 05/16/2013 8:25 AM CDT Philip Chavez MD LAB - HEMATOLOGY ORDERABLES Performing Organization Address [facility] Co de Phone Number [facility] [address] [place] [address] * TACROLIMUS LEVEL (05/16/2013 8:14 AM CDT) Tacrolimus 3.5 2.0 - 15.0 ng/mL 05/16/2013 12:41 PM CDT [facility] Blood specimen (specimen) BLOOD SPECIMEN / Unknown 05/16/2013 8:14 AM CDT 05/16/2013 8:25 AM CDT Narrative [facility] - 05/16/2013 12:41 PM CDT Tacrolimus Information: Nephrology and Cardiology: 3.0-12.0 ng/mL ?GI: 2.0-15.0 ng/mL Felipe Mon MD LAB - THERAPEUTIC DR ELEUTERIO MONITORING ORDERABLES Performing Organization Address [facility] de Phone Number [facility] [address] [place] [address] * (ABNORMAL) COMPREHENSIVE METABOLIC PANEL (05/16/2013 8:14 AM CDT) Glucose 88 70 - 105 mg/dL 05/16/2013 8:50 AM CDT [facility] Sodium 141 136 - 145 mmol/L 05/16/2013 8:50 AM CDT [facility] Potassium 4.0 3.5 - 5.1 mmol/L 05/16/2013 8:50 AM CDT [facility] Chloride 108(H) 98 - 107 mmol/L 05/16/2013 8:50 AM CDT [facility] CO2 25 22 - 29 mmol/L 05/16/2013 8:50 AM CDT [facility] Calcium 9.48 9.08 - 10.48 mg/dL 05/16/2013 8:50 AM CDT [facility] Anion Gap 8 5 - 20 mmol/L 05/16/2013 8:50 AM CDT [facility] BUN 10.0 5.3 - 18.7 mg/dL 05/16/2013 8:50 AM CDT [facility] Creatinine 0.97 0.61 - 1.07 mg/dL 05/16/2013 8:50 AM T [facility] eGFR by MDRD >60 >60 ml/min/1.7 3m2 05/16/2013 8:50 AM T [facility] eGFR by MDRD >60 >60 ml/min/1.7 3m2 05/16/2013 8:50 AM T [facility] Alkaline Phosphatase 166(H) 39 - 139 U/L 05/16/2013 8:50 AM T [facility] ALT 74(H) 6 - 46 U/L 05/16/2013 8:50 AM T [facility] AST 48(H) 8 - 42 U/L 05/16/2013 8:50 AM T [facility] Protein Total 6.7 6.3 - 8.2 gm/dL 05/16/2013 8:50 AM T [facility] Albumin 4.0 3.3 - 4.9 gm/dL 05/16/2013 8:50 AM T [facility] Bilirubin Total 0.5 0.3 - 1.2 mg/dL 05/16/2013 8:50 AM T [facility] Blood specimen (specimen) BLOOD SPECIMEN / Unknown 05/16/2013 8:14 AM CDT 05/16/2013 8:25 AM CDT Felipe Mon MD LAB - CHEMISTRY MACIE HERNÁNDEZ [facility] Organization Address City/State/[facility] de Phone Number [facility] [place] [address] * (ABNORMAL) JOSE-BAR VIRUS PCR QUANTITATIVE BLOOD (05/16/2013 8:14 AM CDT) Jose-De La Cruz Virus DNA PCR Quantitative POSITIVE for EBV DNA but below level of accurate quantitatio n(A) No EBV DNA detected 05/18/2013 7:05 AM CDT [facility] Blood specimen (specimen) BLOOD SPECIMEN / Unknown 05/16/2013 8:14 AM CDT 05/16/2013 8:25 AM CDT Narrative [facility] - 05/18/2013 7:05 AM CDT This assay has a lower [...] ??EBV levels can vary by ??specimen type: [facility] uses whole blood which is more sensitive than plasma for detection of EBV DNA. ??Also, the lack of a universal quantitative standard contributes to interlaboratory variability. Therefore, caution should be exercised when attempting to compare results obtained from different laboratories. It is recommended that for tracking relative changes in EBV DNA levels in particular patient, the same laboratory should test the specimen. Felipe Mon MD LAB - MICROBIOLOGY Amandeep SMITH Performing Organization Address City/State/[facility] Co de Phone Number [facility] [address] [place] [address] * (ABNORMAL) GGT (05/16/2013 8:14 AM CDT) GGT 93(H) 8 - 69 U/L 05/16/2013 8:51 AM CDT [facility] Blood specimen (specimen) BLOOD SPECIMEN / Unknown 05/16/2013 8:14 AM CDT 05/16/2013 8:25 AM CDT Felipe Mon MD LAB - CHEMISTRY MACIE HERNÁNDEZ [facility] [address] [place] [address] documented in this encounter Visit Diagnoses Diagnosis History of liver transplant (HCC) Liver replaced by transplant Hypogammaglobulinemia (HCC) Hypogammaglobulinaemia, unspecified ITP (idiopathic thrombocytopenic purpura) (HCC) Immune thrombocytopenic purpura documented in this encounter Care Teams Pipelayer Relationship Specialty [place] [address] [place] [address] PCP - General 01/05/11 documented as of this encounter
--- OUTSIDE RECORDS SUMMARY | 2024-10-28 05:55 | XMS_ITS | Encounter Summary ---
Author Organization [facility] Address [address] [place] [address] Care Team Providers Care Publications Inspector Name Role Phone Vilma Spangler MD Primary Care Provider Encounter Details Date Type Department Care Team (Latest Contact Info) Description 07/21/2013 7:31 AM CDT - 07/21/2013 11:59 PM CDT Hospital Encounter The [facility] at [address] [id number] Jason Fischer MD [address] [place] [phone] Discharge Disposition: Home or Self Care Social [...] Sign Reading Time Taken Comments Blood Pressure 108/65 07/21/2013 8:00 AM CDT Pulse 56 07/21/2013 8:00 AM CDT Temperature 36.6 ??C (97.8 ??F) 07/21/2013 8:00 AM CD T Respiratory Rate 16 07/21/2013 8:00 AM CDT Oxygen Saturation 99% 07/21/2013 8:00 AM CDT Inhaled Oxygen Concentration - - Weight 53 kg (116 lb 13.5 oz) 07/21/2013 8:00 AM CDT Height 170 cm (5' 6.93 ) 07/21/2013 8:00 AM CDT Body Mass Index 18.34 07/21/2013 8:00 AM CDT documented in this encounter Medications at Time of Discharge Medication Sig Dispensed Refills Start Date End Date acetaminophen (TYLENOL) 325 MG tablet Take 325 mg by mouth every 4 hours as needed. Maximum allowable Acetaminophen amount = 4 Grams (4000 mg) / 24 hours. predniSONE (DELTASONE) 20 MG tablet Take 10 mg by mouth once daily. 08/08/2013 tacrolimus (PROGRAF) 0.5 MG capsuleIndications:Li ruben replaced by transplant ([facility]) Take 1 Cap by mouth 2 times daily. 60 Cap 5 07/18/2013 predniSONE (DELTASONE) 20 MG tablet Take 2 Tabs by mouth 2 times daily for 14 days. 56 Tab 0 07/14/2013 07/28/2013 sulfamethoxazole-trim ethoprim (BACTRIM DS; SEPTRA DS) 800-160 MG tabletIndications:Silvia er replaced by transplant ([facility]) Take 1 Tab by mouth once daily. 30 Tab 5 07/18/2013 07/24/2013 documented as of this encounter Progress Notes * Minnie Rogers RN - 07/21/2013 1:17 PM CDT Arrives in clinic today for scheduled lab/follow-up. Triaged per RN, meds reviewed. 24g insite placed to L ac space, cbc obtained and sent to lab. PLT= [id number] Dr Fischer aware. Instructed pt to decrease prednisone to 20mg BID and repeat counts in 1week. PIV dc'd bandaide applied. documented in this encounter Procedure Notes * Document, Scanned - 08/09/2013 6:20 PM CDTAssociated Order(s): LAB RESULTS ORDER * Document, Scanned - 08/01/2013 9:42 PM CDTAssociated Order(s): LAB RESULTS ORDER documented in this encounter Miscellaneous Notes * Miscellaneous Scans - Document, Scanned - 07/24/2013 5:52 PM CDT documented in this encounter Plan of Treatment Not on file documented as of this encounter Procedures Procedure Name Priority Date/Time Associated Diagnosis Comments LAB RESULTS ORDER 08/09/2013 6: 20 PM CDT VICKEY DIRECT Routine 07/21/2013 8:32 AM CDT CBC W AUTO DIFFERENTIAL ZAHRA 07/21/2013 7:58 AM CDT ITP (idiopathic thrombocytopenic purpura) COMPREHENSIVE METABOLIC PANEL ZAHRA 07/21/2013 7:58 AM CDT ITP (idiopathic thrombocytopenic purpura) IGG BLOOD ZAHRA 07/21/2013 7:58 AM CDT ITP (idiopathic thrombocytopenic purpura) documented in this encounter Results * LAB RESULTS ORDER (08/09/2013 6:20 PM CDT) Narrative 08/09/2013 6:20 PM CDT Ordered by an unspecified provider. Transcriptions Document, Scanned - 08/01/2013 9:42 PM CDT Document, Scanned - 08/09/2013 6:20 PM CDT Scanned Document LAB - THERAPEUTIC DR UG MONITORING ORDERABLES * VICKEY DIRECT (07/21/2013 8:32 AM CDT) Direct Vickey (ALEX) Positive 07/21/2013 9:20 AM CDT [facility] Direct Vickey (ALEX) IgG Positive 07/21/2013 9:20 AM CDT [facility] Blood Bank BLOOD SPECIMEN / Unknown 07/21/2013 8:32 AM CDT 07/21/2013 8:39 AM CDT Jason Fischer MD LAB - BLOOD BANK O RDERABLES [facility] * IGG BLOOD (07/21/2013 7:58 AM CDT) IgG 1,155 540 - 1,822 mg/dL 07/21/2013 8:34 AM T [facility] Blood BLOOD SPECIMEN / Unknown 07/21/2013 7:58 AM CDT 07/21/2013 8:11 AM CDT Jason Fischer MD LAB - CHEMISTRY OR DERABLES Performing Organization Address City/State/[facility] Co de Phone Number [facility] [address] [place] [address] * (ABNORMAL) COMPREHENSIVE METABOLIC PANEL (07/21/2013 7:58 AM CDT) Glucose 144(H) 70 - 105 mg/dL 07/21/2013 8:35 AM [facility] Sodium 139 136 - 145 mmol/L 07/21/2013 8:35 AM [facility] Potassium 4.2 3.5 - 5.1 mmol/L 07/21/2013 8:35 AM [facility] Chloride 108(H) 98 - 107 mmol/L 07/21/2013 8:35 AM [facility] CO2 21(L) 22 - 29 mmol/L 07/21/2013 8:35 AM [facility] Calcium 9.19 9.08 - 10.48 mg/dL 07/21/2013 8:35 AM [facility] Anion Gap 10 5 - 20 mmol/L 07/21/2013 8:35 AM [facility] BUN 16.8 5.3 - 18.7 mg/dL 07/21/2013 8:35 AM [facility] Creatinine 0.79 0.61 - 1.07 mg/dL 07/21/2013 8:35 AM [facility] eGFR by MDRD >60 >60 ml/min/1.7 3m2 07/21/2013 8:35 AM [facility] eGFR by MDRD >60 >60 ml/min/1.7 3m2 07/21/2013 8:35 AM [facility] Alkaline Phosphatase 189(H) 39 - 139 U/L 07/21/2013 8:35 AM [facility] ALT 41 6 - 46 U/L 07/21/2013 8:35 AM CDT [facility] AST 26 8 - 42 U/L 07/21/2013 8:35 AM CDT [facility] Protein Total 7.0 6.3 - 8.2 gm/dL 07/21/2013 8:35 AM CDT [facility] Albumin 3.9 3.3 - 4.9 gm/dL 07/21/2013 8:35 AM CDT [facility] Bilirubin Total 0.7 0.3 - 1.2 mg/dL 07/21/2013 8:35 AM CDT [facility] Blood BLOOD SPECIMEN / Unknown 07/21/2013 7:58 AM CDT 07/21/2013 8:11 AM CDT Jason Fischer MD LAB - CHEMISTRY OR DERABLES Performing Organization Address City/State/[facility] Co de Phone Number [facility] [place] [address] * (ABNORMAL) CBC W AUTO DIFFERENTIAL (07/21/2013 7:58 AM CDT) WBC 12.2(H) 4.4 - 10.7 x10^9/L 07/21/2013 8:20 AM CDT [facility] RBC 4.37 3.80 - 5.40 x10^12/L 07/21/2013 8:20 AM CDT [facility] Hemoglobin 14.4 12.0 - 17.6 g/dL 07/21/2013 8:20 AM CDT [facility] Hematocrit 39.2 35.2 - 51.7 % 07/21/2013 8:20 AM CDT [facility] MCV 89.7 80.7 - 98.3 fl 07/21/2013 8:20 AM CDT [facility] MCH 33.0 26.7 - 34.0 pg 07/21/2013 8:20 AM CDT [facility] MCHC 36.7(H) 30.8 - 35.9 gm/dL 07/21/2013 8:20 AM CDT [facility] Platelet Count 445(H) 153 - 416 x10^9/L 07/21/2013 8:20 AM CDT [facility] RDW-CV 14.8 12.1 - 14.9 % 07/21/2013 8:20 AM T [facility] MPV 10.1 9.4 - 12.9 fl 07/21/2013 8:20 AM T [facility] Neutrophils % 59.9 44.0 - 73.0 % 07/21/2013 8:20 AM T [facility] Lymphocytes % 27.1 20.0 - 43.0 % 07/21/2013 8:20 AM T [facility] Monocytes % 12.7 5.0 - 13.0 % 07/21/2013 8:20 AM T [facility] Eosinophils % 0.0 0.0 - 6.0 % 07/21/2013 8:20 AM T [facility] Basophils % 0.1 0.0 - 2.0 % 07/21/2013 8:20 AM T [facility] Immature Granulocytes 0.2 0 - 1 % 07/21/2013 8:20 AM T [facility] Neutrophil Absolute 7.32(H) 2.01 - 7.14 x10^9/L 07/21/2013 8:20 AM T [facility] Lymphocytes Absolute 3.32 1.07 - 3.94 x10^9/L 07/21/2013 8:20 AM T [facility] Monocytes Absolute 1.56(H) 0.26 - 1.07 x10^9/L 07/21/2013 8:20 AM T [facility] Eosinophils Absolute 0.00 0 - 0.47 x10^9/L 07/21/2013 8:20 AM T [facility] Basophils Absolute 0.01 0 - 0.08 x10^9/L 07/21/2013 8:20 AM T [facility] Immature Granulocytes Absolute 0.03 0.00 - 0.06 x10^9/L 07/21/2013 8:20 AM T [facility] Blood BLOOD SPECIMEN / Unknown 07/21/2013 7:58 AM CDT 07/21/2013 8:11 AM CDT Jason Fischer MD LAB - HEMATOLOGY O RDERABLES Performing Organization Address City/State/[facility] Co de Phone Number [facility] [address] [place] [address] documented in this encounter Visit Diagnoses Diagnosis ITP (idiopathic thrombocytopenic purpura) (HCC)- Primary Immune thrombocytopenic purpura documented in this encounter Care Teams Publications Inspector Relationship Specialty Start Date End Date Vilma Spangler MD [address] [id number] PCP - General 01/05/11 documented as of this encounter
--- OUTSIDE RECORDS SUMMARY | 2024-10-28 05:55 | XMS_ITS | Encounter Summary ---
Author Organization [facility] Address [address] [place] [address] Care Team Providers Care Marketing Communications Leader Name Role Phone Vilma Spangler MD Primary Care Provider Encounter Details Date Type Department Care Team (Latest Contact Info) Description 01/04/2014 Hospital Outpatient Visit Historic [facility] [address] [place] [address] Davida Vilchis MD Discharge Disposition: Home or Self Care Social [...] on filedocumented in this encounter Care Teams Marketing Communications Leader Relationship Specialty Start Date End Date Vilma Spangler MD [address] [address] PCP - General 01/05/11 documented as of this encounter
--- OUTSIDE RECORDS SUMMARY | 2024-10-28 05:55 | XMS_ITS | Encounter Summary ---
Author Organization [facility] Address [address] [place] [address] Care Team Providers Care Retail Service Specialist Name Role Phone Vilma Spangler MD Primary Care Provider [phone] Reason for Visit * Reason Onset Date Comments Results 10/23/2013 Encounter Details Date Type Department Care Team (Late st Contact Info) Description 10/23/2013 Telephone The [facility] at [address] [address] Dariela Winston RN Results Social History Tobacco [...] Telephone Encounter - Dariela Winston, RN - 10/23/2013 6:55 PM CST Received labs from OSH and reviewed with Dr. Chavez. WBC 7.6 HGB 15.8 PLTS 366 [facility] 3922 Mom called with results, message left on phone and instructed to repeat labs in 2 weeks. SCRAPER documented in this encounter Plan of Treatment Not on file documented as of this encounter Visit Diagnoses Not on filedocumented in this encounter Care Teams Retail Service Specialist Relationship Specialty Start Date End Date Vilma Spangler MD [address] [facility] [address] [place] [address] PCP - General 01/05/11 documented as of this encounter
--- OUTSIDE RECORDS SUMMARY | 2024-10-28 05:55 | XMS_ITS | Encounter Summary ---
Author Organization [facility] Address [address] [facility] [place] [address] Care Team Providers Care Complaint Analyst Name Role Phone Vilma Spangler MD Primary Care Provider [phone] Encounter Details Date Type Department Care Team (Late st Contact Info) Description 11/29/2013 Hospital Outpatient Visit Historic [facility] [address] [place] [address] Kaycee Alexandre MD [address] [place] [address] [address] [place] [address] Discharge Disposition: Home or Self Care Social [...] Procedure Name Priority Date/Time Associated Diagnosis Comments US ABDOMEN DOPPLER ONLY LTD Routine 11/29/2013 11:01 AM PLATING EQUIPMENT TENDER US ABDOMEN LIMITED Routine 11/29/2013 11 :01 AM PLATING EQUIPMENT TENDER documented in this encounter Results * US ABDOMEN DOPPLER ONLY LTD (11/29/2013 11:01 AM PLATING EQUIPMENT TENDER) Anatomical Region Laterality Modality Abdomen Other Impressions 11/29/2013 2:22 PM PLATING EQUIPMENT TENDER Impression: 1. Status post liver transplant without discrete liver lesion or biliary dilation. 2. 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 This report was approved ??by Philip Mendes M.D. ?? on 11/29/2013 2:22 PM . I, Dr. TODD JOHNSON M.D. have personally reviewed and interpreted this examination/study. This report was electronically signed by TODD JOHNSON M.D. ??on 11/29/2013 2:22 PM . Narrative 11/29/2013 2:22 PM PLATING EQUIPMENT TENDER Exam: Abdominal ultrasound limited with Doppler evaluation [...] portal vein. This report was approved by Philip Mendes M.D. on 11/29/2013 2:22PM . I, Dr. TODD JOHNSON M.D. have personally reviewed and interpreted thisexamination/study. This report was electronically signed by TODD JOHNSON M.D. on 11/29/20132:22 PM . Kaycee Alexandre MD US ORDERABLES * US ABDOMEN LIMITED (11/29/2013 11:01 AM PLATING EQUIPMENT TENDER) Anatomical Region Laterality Modality Abdomen Other Impressions 11/29/2013 2:22 PM PLATING EQUIPMENT TENDER Impression: 1. Status post liver transplant without discrete liver lesion or biliary dilation. 2. 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 This report was approved ??by Philip Mendes M.D. ?? on 11/29/2013 2:[address] TODD Ramirez M.D. have personally reviewed and interpreted this examination/study. This report was electronically signed by TODD JOHNSON M.D. ??on 11/29/2013 2:22 PM . Narrative 11/29/2013 2:22 PM PLATING EQUIPMENT TENDER Exam: Abdominal ultrasound limited with Doppler evaluation [...] portal vein. This report was approved by Philip Mendes M.D. on 11/29/2013 2:22PM . I, Dr. TODD JOHNSON M.D. have personally reviewed and interpreted thisexamination/study. This report was electronically signed by TODD JOHNSON M.D. on 11/29/20132:22 PM . Kaycee Alexandre MD US ORDERABLES documented in this encounter Visit Diagnoses Diagnosis Liver replaced by transplant (HCC) Liver replaced by transplant documented in this encounter Care Teams Complaint Analyst Relationship Specialty Start Date End Date Vilma Spangler MD [address] [address] PCP - General 01/05/11 documented as of this encounter
--- OUTSIDE RECORDS SUMMARY | 2024-10-28 05:55 | XMS_ITS | Clinical Summary ---
Author Organization [facility] Address [address] [place] [address] Care Team Providers Care Public Address System Mechanic Name Role Phone Vilma Spangler MD Primary Care Provider [phone] Source Comments [facility],non-owned Affiliates and Associated Physician Practices is amultiple site organization consisting of ambulatory clinics and hospital sitesin [place], [place] and [place]. This disclosure is being madepursuant to the Care Everywhere program and may not contain all information available regarding this patient. Last updated 18.[employer] [facility] Allergies No known active allergies Medications * [...] migh t be different from the original. Compliance Representative Dealer Batool [phone] Problem Noted Date Diagnosed Date Idiopathic thrombocytopenic [...] control per Surgery, at this time morphine FOOD AND BEVERAGE COORDINATOR without basal and 2 mg q15 bolus [...] MENINGOCOCCAL CONJUGATE (MCV4P) 11/11/2012 PNEUMOCOCCAL PPSV23 11/11/2012 Family History Medical History Relation Name Comments Cancer Maternal Grandfather Cancer Maternal Grandmother Cancer Mother Rheumatological Disease Paternal Grandfather Hypertension Paternal Grandmother Anesthesia Reaction Sister 1 difficul ty awakening Diabetes Sister 2 Allergy (Severe) Neg Hx Arrhythmia Neg Hx Asthma Neg Hx Broken Bones Neg Hx Clotting Disorder Neg Hx Collagen Disease Neg Hx Dislocations Neg Hx Hypercholesterolemia Neg Hx NC Neg Hx Marfan Syndrome Neg Hx Osteoporosis Neg Hx Scoliosis Neg Hx Severe Sprains Neg Hx Sickle Cell Anemia Neg Hx Sudd. 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 Weight 56.7 kg (125 lb) 01/21/2014 7:52 PM CDT Height 170.2 cm (5' 7 ) 01/21/2014 7:52 PM CDT Body Mass Index 19.58 01/21/2014 7:52 PM CDT Plan of Treatment Health Maintenance Due Date Last Done Comments HIB VACCINE (1 of 1 - Risk 1 -dose series) 05/02/1994 COVID-19 VACCINE (#1) 1998 MENINGOCOCCAL (Group B) VACC INE (1 of 4 - Increased Risk) 2003 HIV SCREENING 02/01/2008 HEPATITIS C SCREENING 01/27/2011 DTAP/TDAP/TD VACCINES (1 - Tdap) 02/01/2012 HEPATITIS B VACCINE (1 of 3 - 19+ 3-dose series) 02/01/2012 ZOSTER VACCINE (1 of 2) 02/01/2012 MENINGOCOCCAL VACCINE (2 - R isk 2-dose series) 01/06/2013 11/11/2012 PNEUMOCOCCAL VACCINE (2 of 2 - PCV) 11/11/2013 11/11/2012 DEPRESSION SCREENING 11/01/2023 INFLUENZA VACCINE (#1) 2024 HPV VACCINE Aged Out No longer eligi ble based on patient's age to complete this topic Advance Directives Documents on File Type Date Recorded Patient Home Companion Expl anation Adv Directive/Living Will/POA 10/27/2012 9:51 AM * FULL RESUSCITATION (Latest Code Status on File) Date Activated Date Inactivated Comments 11/16/2012 11:32 PM 11/17/2012 7:47 PM Care Teams Public Address System Mechanic Relationship Specialty Start Date End Date Vilma Spagnler MD [address] [facility] [address] [place] [address] PCP - General 01/05/11
--- OUTSIDE RECORDS SUMMARY | 2024-10-28 05:55 | XMS_ITS | Encounter Summary ---
Author Organization [facility] Address [address] [place] [address] Care Team Providers Care Calcine Furnace Tender Name Role Phone Vilma Spangler MD Primary Care Provider +- [phone] Reason for Visit * Reason Onset Date Comments Results 07/05/2013 Encounter Details Date Type Department Care Team (Late st Contact Info) Description 07/05/2013 Telephone The [facility] at [address] [address] Astrid Caldwell RN Results Social History Tobacco Use Types [...] encounter Miscellaneous Notes * Telephone Encounter - Astrdi Caldwell RN - 07/05/2013 3:00 PM CDT Received lab results from [facility]. Reviewed with Dr. Chavez. Mom notified of lab results and that Dr. Chavez would like Beka to come to [facility] in am for repeat labs and visit. Mom agrees with plan and placed on [facility] schedule. documented in this encounter Plan of Treatment Not on file documented as of this encounter Visit Diagnoses Not on filedocumented in this encounter Care Teams Calcine Furnace Tender Relationship Specialty Start Date End Date Vilma Spangler MD [address] [address] PCP - General 01/05/11 documented as of this encounter
--- OUTSIDE RECORDS SUMMARY | 2024-10-28 05:56 | XMS_ITS | Encounter Summary ---
Author Organization [facility] Address [address] [place] [address] Care Team Providers Care Natural Resources Engineer Name Role Phone Vilma Spangler MD Primary Care Provider [phone] Reason for Referral * - Closed Specialty Diagnoses / Procedures Referred By Contac t Referred To Contact Diagnoses Primary thrombocytopenia, unspecified (HCC) Procedures US ABDOMEN LIMITED Omar Moreland MD [address] [place] [address] [facility] OP [address] [place] [phone] Referral ID Status Reason Start Date Expiration Date Visits Re quested Visits Authorized [id number] Closed 12/28/2012 06/26/2013 1 1 NIGHT Reason for Visit * Auth/Cert - Closed Specialty Diagnoses / Procedures Referred By Contac t Referred To Contact Diagnoses Primary thrombocytopenia, unspecified (HCC) Procedures SPLENECTOMY LAPAROSCOPIC SPLENECTOMY Referral ID Status Reason Start Date Expiration Date Visits Re quested Visits Authorized [id number] Closed 1 1 Encounter Details Date Type Department Care Team (Latest Contact Info) Description 12/23/2012 5:49 AM RN NIGHT - 12/28/2012 4:06 PM RN NIGHT Hospital Encounter [facility] - TCU [address] [place] [id number] Gregory Fung MD [address] [place] [phone] General Medicine Discharge Disposition: Home or Self Care Social [...] Sign Reading Time Taken Comments Blood Pressure 104/63 12/28/2012 11:23 AM RN NIGHT Pulse 72 12/28/2012 11:23 AM RN NIGHT Temperature 37 ??C (98.6 ??F) 12/28/2012 11:23 AM RN NIGHT Respiratory Rate 18 12/28/2012 11:23 AM RN NIGHT Oxygen Saturation 98% 12/28/2012 11:23 AM RN NIGHT Inhaled Oxygen Concentration 100% 12/24/2012 7 :00 AM RN NIGHT Weight 53.6 kg (118 lb 2.7 oz) 12/28/2012 7:50 A M RN NIGHT Height 172 cm (5' 7.72 ) 12/23/2012 6:00 AM RN NIGHT Body Mass Index 18.12 12/23/2012 6:00 AM RN NIGHT documented in this encounter Discharge Summaries * Omar Moreland MD - 12/28/2012 3:55 PM CST Pediatric Surgery Discharge Summary This is a clinical resume for patient Beka Nichols for attending Gregory Fung MD Admission Date: 12/23/2012 Discharge Date: 12/28/2012 Hospitalization duration: Hospital Day: 5 HPI: Beka Nichols is a 17 y[address] male[address] Per Dr. 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 Pt has since had several episodes of acute rejection but is now maintained on Tacrolimus 1 BID and 30mg Prednisone BID. He continues to have low platelet counts and the hematology service has requested that I evaluate him for splenectomy. Past Medical History Diagnosis Date ??? ITP (idiopathic thrombocytopenic purpura) ??? Platelet disorder ??? Hx of liver transplant 1998 ??? 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 ??? Unspecified disorder of liver ??? Complication of anesthesia PONV Past Surgical History Procedure Date ??? Liver transplant 1998 ??? Pr dental surgery procedure 2011 Removal of [place] teeth in dental office under sedation ??? Ent surgery 03/2012 Excision of left neck deep cervical node ??? Liver biopsy multiple ??? Bone marrow biopsy multiple ??? Splenectomy 12/23/2012 N/A; SPLENECTOMY LAPAROSCOPIC ??? Splenectomy 12/23/2012 SPLENECTOMY Family History Problem Relation Age of Onset ??? Cancer Mother ??? Diabetes Sister ??? Cancer Maternal Grandmother ??? Cancer Maternal Grandfather ??? Hypertension Paternal Grandmother ??? Rheumatological Disease Paternal Grandfather ??? Allergy (Severe) Neg Hx ??? Anesthesia Reaction Sister difficulty awakening ??? Arrhythmia Neg Hx ??? Asthma Neg Hx ??? Broken Bones Neg Hx ??? Clotting Disorder Neg Hx ??? Collagen Disease Neg Hx ??? Dislocations Neg Hx ??? Hypercholesterolemia Neg Hx ??? Marfan Syndrome Neg Hx ??? IN Neg Hx ??? Osteoporosis Neg Hx ??? Scoliosis Neg Hx ??? Severe Sprains Neg Hx ??? Sickle Cell Anemia Neg Hx ? ? Sudd. <30 Neg Hx Clinical course: The patient was admitted to PICU postoperatively for close monitoring . The patient required several NS bolus for tachycardia on POD#1 and the patient suffered from urinary retnetionafter vinson removal on POD#2. The patient was transferred to the TCU on POD#2 and NG and vinson wereremoved on POD#3 and the patient was able to urinate and tolerate a regular diet later that day. The patient's ad drain continued to decrease output, however due to above average lipase fluid levels the drain was left in place on discharge. The patient was discharged home on POD#5 with instructions to return to clinic on 3/4 for blood and drain amylase and lipase levels, U/S of the abdomen to e valuate for fluid collection and tacro level. Pertinent labs: BMP: Component Name 12/23/12 1943 12/20/12 0929 11/16/122017 SODIUM 136 142 142 POTASSIUM 4.9 4.0 3.8 CHLORIDE 106 109* 107 CO2 22 20* 25 BUN 9.7 11.3 10.1 CREATININE 0.74 0.85 0.91 GLUCOSE 184* 90 95 CALCIUM 7.97* 8.93* 9.78 Component Name 12/27/12 0705 12/25/12 0536 04/20/12 0841 03/15/12 0800 03/24/11 0740 TACROLIMUS -- 7.7 5.9 7.1 -- TACROCARDIO -- -- -- -- TACROGASTRO 11.3 -- -- -- TACRONEPHRO -- -- -- -- Component Name 12/25/12 0536 12/24/12 0536 12/23/12 2225 WBC 19.9* 20.4* 21.4* HGB 11.0* 11.2* 11.8* HCT 31.2* 31.4* 33.1* PLTCOUNT 283 256 247 Component Name 12/28/12 0847 12/28/12 0532 12/25/12 1105 AMYLASE 62 157* 35 Component Name 12/28/12 0847 12/28/12 0532 12/25/12 1105 LIPASE 47 55 22 Results for BEKA NICHOLS ( ) as of 12/29/2012 10:07 Ref. Range 12/25/2012 10:33 12/28/2012 04:29 12/28/2012 10:40 Amylase Fluid No range found 132 59 56 Results for BEKA NICHOLS ( ) as of 12/29/2012 10:07 Ref. Range 12/25/2012 10:33 12/28/2012 04:29 12/28/2012 10:40 Lipase Fluid No range found 747 158 137 Consultations: GI Diagnostic studies: See hospital course Procedures: surgery: Laparoscopic converted to open splenectomy, repair of small bowel enterotomy Discharge Physical Exam: Gen: no acute distress Resp: clear to auscultation bilaterally CV: regular rate and rhythm Abd: soft, appropriately tender to palpation Dressing: cdi Beka Nichols Home Medication Instructions [id number] Printed on:12/28/12 6948 Medication Information acetaminophen (TYLENOL) 325 MG tablet Take 325 mg by mouth every 4 hours as needed. Maximum allowable Acetaminophen amount = 4 Grams (4000 mg) / 24 hours. valGANciclovir (VALCYTE) 450 MG tablet Take 1 Tab by mouth daily with breakfast for 45 days. sulfamethoxazole-trimethoprim (BACTRIM DS; SEPTRA DS) 800-160 MG tablet Take 1 Tab by mouth every 12 hours for 45 days. tacrolimus (PROGRAF) 0.5 MG capsule Take 1 Cap by mouth 2 times daily for 30 days. Discharge Diagnosis(es): ITP s/p open splenectomy Follow up 01/02/[address] Gregory Fung MD during the pediatric surgery clinic. Call [phone] for appointment time. Return to ER or call [phone] and page pediatric surgery resident if develop severe pain, nausea, vomiting, or fever > 101.0 F. Omar Moreland MD CC: Vilma Spangler documented in this encounter Discharge Instructions * Discharge Instructions* Suze Rollins RN - 12/28/2012 3:51 PM RN NIGHT Discharge Instructions for: Beka Nichols Discharge Procedure Orders US ABDOMEN LIMITED Standing Status: Future Standing Exp. Date: 12/28/13 Please evaluate for fluid collection around drain. Order Specific Question Answer Comments Exam to be performed? Per Radiologist protocol TACROLIMUS LEVEL Standing Status: Future Standing Exp. Date: 12/23/13 Order Specific Question Answer Comments Which Transplant Service is Monitoring This Patient Gastroenterology AMYLASE BLOOD Standing Status: Future Standing Exp. Date: 12/23/13 LIPASE BLOOD Standing Status: Future Standing Exp. Date: 12/23/13 AMYLASE FLUID Standing Status: Future Standing Exp. Date: 12/23/13 LIPASE FLUID Standing Status: Future Standing Exp. Date: 12/23/13 CALL PHYSICIAN If you experience increasing or unrelieved pain, drainage, redness, bleeding, or swelling at surgical site and/or IV site, any vomiting, persistent fever of 100.5 degrees or greater, unable to urinate in 6-8 hours or uncomfortable. PATIENT TO CALL PHYSICIAN/CLINIC FOR APPOINTMENT Follow up with Dr. Fung on Wednesday. Bring all medications to next visit. REGULAR DIET AT HOME ACTIVITY TOLERATED No lifting greater than 10 lbs. DRAIN CARE Empty and record drain output twice daily. Allow soap and water to run over drain site in shower. Do not submerge in water. The following belonging have been returned to you If your child has any worsening of his or her condition, please call your primary care doctor (or their exchange if after hours) or return to the ED if your primary care doctor cannot be reached. 12/28/2012 NIGHT * Discharge Instructions* Document, Scanned - 12/30/2012 6:39 AM RN NIGHT NIGHT documented in this encounter Medications at Time of Discharge Medication Sig Dispensed Refills Start Date End Date acetaminophen (TYLENOL) 325 MG tablet Take 325 mg by mouth every 4 hours as needed. Maximum allowable Acetaminophen amount = 4 Grams (4000 mg) / 24 hours. sulfamethoxazole-trim ethoprim (BACTRIM DS; SEPTRA DS) 800-160 MG tablet Take 1 Tab by mouth every 12 hours for 45 days. 90 Tab 0 12/28/2012 01/30/2013 tacrolimus (PROGRAF) 0.5 MG capsule Take 1 Cap by mouth 2 times daily for 30 days. 60 Cap 0 12/28/2012 01/30/2013 valGANciclovir (VALCYTE) 450 MG tablet Take 1 Tab by mouth daily with breakfast for 45 days. 45 Tab 0 12/28/2012 01/30/2013 documented as of this encounter Progress Notes * Suze Rollins RN - 12/28/2012 4:05 PM CST Patient discharged to home. Patient and mother escorted to front entrance by student nurse. NIGHT * Gregory Fung MD - 12/28/2012 8:11 AM CST Pediatric General Surgery Progress Note Beka Nichols Admit Date: 12/23/2012 5:49 AM Hospital Day: 5 POD 5 lap converted to open splenectomy Subjective No acute events overnight. AFVSS. BM x2 Objective Data Vitals: 12/27/12 2342 12/28/12 0339 12/28/12 0744 12/28/12 0750 BP: 102/59 108/60 102/55 Pulse: 68 70 73 Temp: 99 ??F 98.6 ??F 98.2 ??F Resp: 20 18 16 Weight: 53.6 kg (118 lb 2.7 oz) SpO2: 97% 100% 99% Date 12/27/12 0700 - 12/28/12 0659 12/28/12 07 - 12/29/12 0659 Shift 2045-3923 2344-6902 6617-5072 24 Hour Total 4938-8610 0107-2191 8498-5148 24 Hour Total I N T A K E P.O. 840 778 169 7115 I.V. (mL/kg) 582 (10.5) 398 (7.2) 413 (7.5) 1393 (25.1) Shift Total (mL/kg) 1422 (25.7) 638 (11.5) 713 (12.9) 2773 (50.1) O U T P U T Urine (mL/kg/hr) 580 (1.3) 1300 (2.9) 350 (0.8) 2230 (1.7) Drains (mL/kg) 9 (0.2) 5 (0.1) 14 (0.3) Shift Total (mL/kg) 589 (10.6) 1300 (23.5) 355 (6.4) 2244 (40.5) Weight (kg) 55.4 55.4 55.4 55.4 53.6 53.6 53.6 53.6 Component Name 12/28/12 0532 12/27/12 0705 12/26/12 0426 ALBUMIN 3.3 3.3 3.3 ALKPHOS 103 109 100 ALT 45 59* 84* AST 52* 48* 73* TBIL 0.3 0.4 0.5 DBIL 0.10* 0.23 0.24 TPROT 7.4 6.4 6.4 Physical Exam Gen: no acute distress Resp: clear to auscultation bilaterally CV: regular rate and rhythm Abd: soft, appropriately tender to palpation Dressing: cdi Assessment/Plan Post op day #5 for lap converted to open splenectomy -Bactrim, Valcyte -Encouraged increasing ambulation -Encouraged IS -1/2 MIVF -Regular diet -Repeat serum and drain amylase/lipase in AM Omar Moreland MD 12/28/2012 8:11 AM NIGHT * Adriane Smith MD - 12/27/2012 8:42 PM CST Brief Pediatric Surgery Night Float Progress Note Admit Date: 12/23/2012 5:49 AM No acute events as reported by nurse and/or parent. Tolerating regular diet. Had a BM today. Deniesnausea and pain. Child resting comfortably. All questions answered as appropriate. Issues discussedwith housestaff/family as needed. We will continue to follow. Patient seen by myself and any significant issues discussed with senior resident/fellow. Adriane Smith MD PGY1 General Surgery Resident Pager: [phone] December 27, 2012 8:42 PM NIGHT * Ny Phillips RN - 12/27/2012 7:25 PM CST Bedside reporting given to subha porter rn orders and mar reviewed. Pt is awake and watching tv with mom at the bedside. No other significant events to report. NIGHT * Ny Phillips RN - 12/27/2012 4:00 PM CST Pt sitting up in bed visiting with family and friends. NIGHT * Philip Chavez MD - 12/27/2012 3:16 PM CST Beka is doing very well today. Likely to go home soon. Beka will need CBC in two weeks. This can be done outpatient at his surgery follow up. If all is well I will see him in 1 month. NIGHT * Gregory Fung MD - 12/27/2012 10:14 AM CST Pediatric General Surgery Progress Note Beka Nichols Admit Date: 12/23/2012 5:49 AM Hospital Day: 4 POD 4 lap converted to open splenectomy Subjective No acute events overnight. Passing flatus, no BM. AFVSS. Objective Data Vitals: 12/27/12 0536 12/27/12 0815 12/27/12 0848 12/27/12 0917 BP: 107/60 105/58 Pulse: 78 72 80 Temp: 99.6 ??F 99.2 ??F Resp: Weight: SpO2: 98% 98% Date 12/26/12 07 - 12/27/12 0659 12/27/12 07 - 12/28/12 0659 Shift 8332-7762 5892-6393 6656-6805 24 Hour Total 5198-1143 6117-5977 8044-2906 24 Hour Total I N T A K E P.O. 300 120 420 I.V. (mL/kg) 21 (0.4) 1597 (28.8) 1618 (29.2) Tube (mL/kg) 10 (0.2) 10 (0.2) Shift Total (mL/kg) 31 (0.6) 300 (5.4) 1717 (31) 2048 (37) O U T P U T Urine (mL/kg/hr) 825 (1.9) 925 (2.1) 800 (1.8) 2550 (1.9) 580 580 Drains (mL/kg) 65 (1.2) 22 (0.4) 87 (1.6) Shift Total (mL/kg) 890 (16.1) 925 (16.7) 822 (14.8) 2637 (47.6) 580 (10.5) 580 (10.5) Weight (kg) 55.4 55.4 55.4 55.4 55.4 55.4 55.4 55.4 Component Name 12/27/12 0705 12/26/12 0426 12/25/12 1429 ALBUMIN 3.3 3.3 2.9* ALKPHOS 109 100 80 ALT 59* 84* 95* AST 48* 73* 88* TBIL 0.4 0.5 0.6 DBIL 0.23 0.24 0.31 TPROT 6.4 6.4 5.8* Physical Exam Gen: no acute distress Resp: clear to auscultation bilaterally CV: regular rate and rhythm Abd: soft, appropriately tender to palpation Dressing: cdi Assessment/Plan Post op day #4 for lap converted to open splenectomy -D/c ancef, will start Bactrim -Encouraged increasing ambulation -Encouraged IS -1/2 MIVF -Regular diet -Serum and drain amylase/lipase in AM Dannie Davila MD 12/27/2012 10:14 AM NIGHT * Ny Phillips, SHAILESH - 12/27/2012 7:15 AM CST Report received and care assumed. Orders and mar reviewed. Pt sitting up in the chair with mom by his side. Pt alert and oriented. NIGHT * Adriane Smith MD - 12/26/2012 8:58 PM CST Brief Pediatric Surgery Night Float Progress Note Admit Date: 12/23/2012 5:49 AM No acute events as reported by nurse and/or parent. Vinson and NG tube d/c'd today. Patient tolerating CLD with no nausea. Voiding without issues. Drain still in place, will continue to monitor output. Child resting comfortably. All questions answered as appropriate. Issues discussed with housestaff/family as needed. We will continue to follow. Patient seen by myself and any significant issues discussed with senior resident/fellow. Adriane Smith MD PGY1 General Surgery Resident Pager: [phone] December 26, 2012 8:58 PM NIGHT * Meghann Liu MD - 12/26/2012 9:16 AM CST Transplant Surgery Progress Note Admit Date: 12/23/2012 5:49 AM Hospital Day 4 Clinical Course 17 yp male s/p 2 x liver transplants with history of ITP post op now s/p conversion of lap splenectomy to open on 12/23/12. Post operatively, the patient was extubated in the OR and transferred to thePICU for close observation. POD 1, the patient was tachycardic due to pain and hypovolemia. Tachycardia responded to fluid bolus and pain medication. Vinson catheter was removed, but he experienced urinary retention and vinson was replaced. POD 2, the patient did well, was ambulating and was transferred to the TCU. POD 3, his pain is better controlled. Subjective Pain is better controlled. He denies nausea, but still has not passed flatus. Objective Data Vitals: 12/26/12 0229 12/26/12 0356 12/26/12 0613 12/26/12 0731 BP: 119/60 114/57 Pulse: 86 92 77 86 Temp: 99.6 ??F 98.2 ??F Resp: Weight: SpO2: 96% 99% 99% 98% Intake/Output Summary (Last 24 hours) at 12/26/12 0924 Last data filed at 12/26/12 0846 Gross per 24 hour Intake 2349.7 ml Output 3436 ml Net -1086.3 ml Component Name 12/26/12 0426 12/23/12 1943 SODIUM -- 136 POTASSIUM -- 4.9 CHLORIDE -- 106 CO2 -- 22 BUN -- 9.7 CREATININE -- 0.74 GLUCOSE -- 184* CALCIUM -- 7.97* ALBUMIN 3.3 -- ALKPHOS 100 -- ALT 84* -- AST 73* -- TBIL 0.5 -- TPROT 6.4 -- EGFR -- >60 Component Name 12/25/12 0536 WBC 19.9* RBC 3.62* HGB 11.0* HCT 31.2* MCV 86.2 MCH 30.4 MCHC 35.3 RDW -- PLTCOUNT 283 Physical Exam General appearance: alert, cooperative, no distress HEENT: NGT tube in place, putting out 300 mL of clear liquid overnight. Lungs: breath sounds normal and symmetric; no rales or wheezes Abdomen: appropriately tender, left sub-costal incision C/D/I with dressing in place. Ad drain in place putting out 66 mL of serosanguinous fluid. Extremities: no clubbing, cyanosis or edema Assessment/Plan Post op day #3 for laparoscopic converted to open splenectomy Diet: NPO, awaiting return of bowel function Fluid management: on D5 1/2 NS with 20 mEq of KCl Wound care: continue dressing changes Antibiotics: continue ancef per primary team, continue valcyte for immunosuppression prophylaxis Activity: encourage ambulation Discharge : transfer to floors when improving DVT/PUD prophylaxis: ambulating low risk for DVT, on nexium for stress ulcer prophylaxis Drains: D/C vinson today, keep LUQ Ad drain until pancreatic leak resolves Imaging: plan for portal vein U/S Immunosuppression Tacrolimus 1 mg BID, level 7.7 yesterday, maintain current therapy. Meghann Liu MD 12/26/2012 9:34 AM NIGHT * Omar Moreland MD - 12/26/2012 7:42 AM CST Pediatric General Surgery Progress Note Beka Nichols Admit Date: 12/23/2012 5:49 AM Hospital Day: 3 POD 3 lap converted to open splenectomy Subjective No acute events overnight. No BM or flatus. AFVSS. Objective Data Vitals: 12/26/12 0229 12/26/12 0356 12/26/12 0613 12/26/12 0731 BP: 119/60 114/57 Pulse: 86 92 77 86 Temp: 99.6 ??F 98.2 ??F Resp: 19 22 18 Weight: SpO2: 96% 99% 99% 98% Date 12/25/12 0700 - 12/26/12 0659 12/26/12 0700 - 12/27/12 0659 Shift 9331-9135 7149-9060 9457-5355 24 Hour Total 6279-9962 3701-9777 8034-7663 24 Hour Total I N T A K E I.V. (mL/kg) 707.7 (12.8) 814 (14.7) 753 (13.6) 2274.7 (41.1) Tube (mL/kg) 20 (0.4) 20 (0.4) 20 (0.4) 60 (1.1) Shift Total (mL/kg) 727.7 (13.1) 834 (15.1) 773 (14) 2334.7 (42.1) O U T P U T Urine (mL/kg/hr) 550 (1.2) 1130 (2.5) 975 (2.2) 2655 (2) Drains (mL/kg) 138 (2.5) 100 (1.8) 193 (3.5) 431 (7.8) 0 (0) 0 (0) Shift Total (mL/kg) 688 (12.4) 1230 (22.2) 1168 (21.1) 3086 (55.7) 0 (0) 0 (0) Weight (kg) 55.4 55.4 55.4 55.4 55.4 55.4 55.4 55.4 Component Name 12/26/12 0426 12/25/12 1429 12/24/12 0908 ALBUMIN 3.3 2.9* 3.0* ALKPHOS 100 80 93 ALT 84* 95* 151* AST 73* 88* 185* TBIL 0.5 0.6 0.6 DBIL 0.24 0.31 0.38 TPROT 6.4 5.8* 5.7* Physical Exam Gen: no acute distress Resp: clear to auscultation bilaterally CV: regular rate and rhythm Abd: soft, appropriately tender to palpation Dressing: cdi Assessment/Plan Post op day #3 for lap converted to open splenectomy -Continue Zosyn -Encouraged increasing ambulation -Encouraged IS -Portal venous U/S -D/C Basia Moreland MD 12/26/2012 7:42 AM NIGHT * Adriane Smith MD - 12/25/2012 11:46 PM CST Brief Pediatric Surgery Night Float Progress Note Admit Date: 12/23/2012 5:49 AM Pt noted to have elevated drain amylase/lipase. Transplant surgery recommends d/c'ing morphine RETAIL OFFICE ASSOCIATE and switching to fentanyl RETAIL OFFICE ASSOCIATE. Fentanyl RETAIL OFFICE ASSOCIATE not available at [facility] so will write for fentanyl 25mcg q1h prn pain. Continue NPO, NGT. Plan on void trial tomorrow. Pain well controlled at this time withno pain medication received in 4 hours prior to exam. Child resting comfortably. All questions answered as appropriate. Issues discussed with housestaff/family as needed. We will continue to follow. Patient seen by myself and any significant issues discussed with senior resident/fellow. Adriane Smith MD PGY1 General Surgery Resident Pager: [phone] December 25, 2012 11:46 PM NIGHT * Shaye Chaudhari RN - 12/25/2012 11:35 PM CST Problem: Potential for Urinary Catheter-Associated Infection Goal: Signs and Symptoms of urinary catheter-associated infection are avoided Outcome: Ongoing No signs or symptoms of infection present Problem: Pain/Discomfort Pt on morphine RETAIL OFFICE ASSOCIATE, able to receive 1mg q10min Goal: Patient exhibits reduced pain/discomfort as evidenced by pain scores Outcome: Ongoing Patient states that pain score of 3 is tolerable and refuses pain medication Problem: Oxygenation/Respiratory Function Pt on RA Goal: Patient will achieve/maintain baseline respiratory rate/effort Outcome: Ongoing Patients RR and O2 sats are with normal limits for age Problem: Risk of VTE SCD???s in place Goal: Patient is free of signs and symptoms of VTE Outcome: Ongoing No signs or symptoms of VTE Problem: Mobility Goal: Early mobilization is achieved Outcome: Ongoing Patient ambulated several times during the day Problem: Incision Care Goal: Incision is free of infection. Outcome: Ongoing No signs or symptoms of infection Problem: Elimination Vinson catheter in place Goal: Elimination patterns are normal or improving Outcome: Ongoing Patient continues to have vinson in place NIGHT * Kay Marc MD - 12/25/2012 1:27 PM CST Pediatric Attending Daily Progress Note 12/25/2012 1:28 PM Hospital Day: 2 I have interviewed the patient/family and examined this patient. I have reviewed and confirmed/revised the findings of the resident. My findings are as follows: Clinical Course 17 yp male s/p 2 x liver transplants with history of ITP post op now s/p conversion of lap splenectomy to open with intra-operative urgent consult to transplant surgery ( me) for assistance with splenectomy due to hostile abdomen , enlarged liver, hemmorhage and difficulty with exposure. Exam: BP 110/54 Pulse 93 Temp 99.2 ??F Resp 18 Wt 55.393 kg (122 lb 1.9 oz) BMI 18.72 kg/m2 Abdomen: soft, non-tender, non-distended, no hepatosplenomegaly or masses and Incision clean dry and intact, abdomen soft Lab/Other Information TAC level 7.7 LFTs elevated from yesterday- none today Current immuno: TAC . , Suggest: 1. If you believe Amylase and Lipase in drain elevated due to leak from pancreas, MS04 to be changed to Fentanyl to avoid any potential SOD ( sphincter of Oddi dysfunction) 2. Do not dose adjust TAC, goal level should be 6-8 3. Change Valcyte to 450 q day with a goal of leaving patient on dosing for 3 months for prophylaxis with stress of Surgery ( i.e history of last donor CMV + patient last tested CMV -. ) Would also add Bactrim for PCP prophylaxis for same time period due to stress and especially if you use steroids. 4. Would avoid TPN 5. With elevated LFTs yesterday, I would ask that you check them daily until they are baseline. As he is now s/p splenectomy with elevated L:FTs , if they are still up I would ask for US today to check patency of portal vein. Will follow with you. I have asked Dr Mon from GI/Hepatology to see in am. I will check with Peds Surgery but it appears patient has not had up dated Ab studies with history of Autoimmune Hepatitis.Will order for am Wednesday with updated CMV btn * As GI has not seen patient yet, please call me with any questions as I am currently reviewing hisenormous transplant record [phone] See resident's note of 12/25/2012 for further details. Kay Marc MD NIGHT * Dannie Davila MD - 12/25/2012 7:47 AM CST Pediatric General Surgery Progress Note Admit Date: 12/23/2012 5:49 AM Hospital Day: 2 POD 2 lap converted to open splenectomy Subjective Vinson replaced yesterday due to retention. Patient ambulated x2 yesterday. States pain is well controlled. Denies flatus. Objective Vitals: 12/25/12 0216 12/25/12 0359 12/25/12 0549 12/25/12 0730 BP: 115/56 110/60 Pulse: 87 109 79 95 Temp: 98.4 ??F 96.8 ??F Resp: 18 16 18 18 Weight: SpO2: 98% 97% 98% 98% Physical Exam Gen: no acute distress Resp: clear to auscultation bilaterally CV: regular rate and rhythm Abd: soft, appropriately tender to palpation Dressing: sanguinous staining Date 12/24/12 07 - 12/25/12 0659 12/25/12 07 - 12/26/12 0659 Shift [id number] 5179-5538 1798-1732 24 Hour Total 4625-5248 1540-4863 4513-1303 24 Hour Total I N T A K E P.O. 30 30 I.V. (mL/kg) 861.6 (15.6) 666 (12) 823 (14.9) 2350.6 (42.4) Tube (mL/kg) 10 (0.2) 10 (0.2) 10 (0.2) 30 (0.5) Shift Total (mL/kg) 901.6 (16.3) 676 (12.2) 833 (15) 2410.6 (43.5) O U T P U T Urine (mL/kg/hr) 100 (0.2) 875 (2) 1475 (3.3) 2450 (1.8) Drains (mL/kg) 183 (3.3) 210 (3.8) 100 (1.8) 493 (8.9) Shift Total (mL/kg) 283 (5.1) 1085 (19.6) 1575 (28.4) 2943 (53.1) Weight (kg) 55.4 55.4 55.4 55.4 55.4 55.4 55.4 55.4 Component Name 12/25/12 0536 12/23/12 0653 WBC 19.9* -- RBC 3.62* -- HGB 11.0* -- HCT 31.2* -- MCV 86.2 -- MCH 30.4 -- MCHC 35.3 -- RDW -- -- PLTCOUNT 283 -- LYMPHPCT -- 24 MONOCYTPCT -- 14* EOSINPCT -- 4 BASOPHILPCT -- 0 NRBC -- -- GRANPCT -- -- MONOCYTPCT -- 14* EOSINPCT -- 4 BASOPHILPCT -- 0 Assessment/Plan POD 2 lap converted to open splenectomy -Continue Zosyn -Encouraged increasing ambulation -Encouraged IS -Continue morphine RETAIL OFFICE ASSOCIATE and PRN tylenol Dannie Davila MD 12/24/2012 7:47 AM NIGHT * Shaye Chaudhari RN - 12/25/2012 12:54 AM CST Problem: Potential for Increased Anxiety Goal: Patient will remain free of anxiety throughout hospitalization. Outcome: Ongoing Patient expresses symptoms of anxiety about NG tube. Problem: Potential for Urinary Catheter-Associated Infection Goal: Signs and Symptoms of urinary catheter-associated infection are avoided Outcome: Ongoing Patient shows no signs or symptoms of infection Problem: Fall Risk In appropriate bed with side rails up Goal: Patient will remain free of falls Outcome: Ongoing Patient will remain free of falls Problem: Skin Integrity Goal: Skin integrity is maintained or improved Outcome: Ongoing No shows no sign of skin breakdown Problem: Pain/Discomfort Pt on morphine RETAIL OFFICE ASSOCIATE, able to receive 1mg q10min Goal: Patient exhibits reduced pain/discomfort as evidenced by pain scores Outcome: Ongoing Patient rates pain as tolerable. RN encouraged patient to utilize RETAIL OFFICE ASSOCIATE if needed. Problem: Risk of VTE SCD???s in place Goal: Patient is free of signs and symptoms of VTE Outcome: Ongoing sequentials applied Problem: Anxiety Goal: Anxiety is at manageable level Outcome: Ongoing Patient expressed anxiety about NG tube Problem: Elimination Vinson catheter in place Goal: Elimination patterns are normal or improving Outcome: Ongoing Vinson catheter in place NIGHT * Shaye Chaudhari RN - 12/25/2012 12:[address] Smith notified of patient stating that the NG is making it difficult to breath. All VS within normal limits. RN checked placement and irrigated tube with 10ml of water. MD told RN to give patient chloraspetic spray and notified her if patient was still complaining of difficultly breathing with tube in. RN also encouraged patient to use RETAIL OFFICE ASSOCIATE for pain. RN will continue to monitor patient. Adriane Payne MD - 12/25/2012 12:35 AM CST Brief Pediatric Surgery Night Float Progress Note Admit Date: 12/23/2012 5:49 AM Pt unable to void adequately after vinson d/c'd this AM. Vinson replaced with immediate return of 500cc urine. Drain output stable, NGT to low continuous wall suction. NPO but OK to have sips with oralmeds. Will check CBC and tacro level in AM. Pt asking when NGT can be d/c'd as it is uncomfortable to him. Child resting comfortably at time of exam. All questions answered as appropriate. Issues discussed with housestaff/family as needed. We will continue to follow. Patient seen by myself and any significant issues discussed with senior resident/fellow. Adriane Smith MD PGY1 General Surgery Resident Pager: [phone] December 25, 2012 12:35 AM NIGHT * Oriana Gomez RN - 12/24/2012 6:44 PM CST Problem: Potential for Urinary Catheter-Associated Infection Goal: Normal urinary patterns are established within parameters of age and disease process Outcome: Ongoing Need to replace vinson cath after 8 hours without voiding after previous removal, bladder scan showed 380 in bladder. 475 out immediately after insertion. Problem: Pain/Discomfort Pt on morphine RETAIL OFFICE ASSOCIATE, able to receive 1mg q10min Goal: Patient exhibits reduced pain/discomfort as evidenced by pain scores Outcome: Ongoing Morphine RETAIL OFFICE ASSOCIATE. Pain continues to be at a 5 patient denies need for further medication. Problem: Mobility Goal: Early mobilization is achieved Outcome: Ongoing Ambulated in culp x2. Reported some slight dizziness. Problem: Incision Care Goal: Incision remains intact with edges well approximated Outcome: Ongoing Dressing changed in AM, clean dry and intact gauze with tape Problem: Elimination Vinson catheter in place Goal: Elimination patterns are normal or improving Outcome: Ongoing Patient has diminished bowel sounds, denies passing flatus NIGHT * Nick Hopper MD - 12/24/2012 8:46 AM CST Patient is s/p lap converted to open splenectomy and doing well. Has been in PICU overnight. Febrile ON. Cultures sent. Pain reasonably controlled. Started on valcyte and continued on Tacrolimus 11/01. Patient Vitals for the past 6 hrs: Temp Pulse Resp BP 12/24/12 0700 - 110 13 110/47 mmHg 12/24/12 0600 101.6 ??F 121 18 112/47 mmHg 12/24/12 0500 - 126 17 118/48 mmHg 12/24/12 0400 100.8 ??F 120 17 107/55 mmHg 12/24/12 0300 - 119 16 119/52 mmHg Component Name 12/24/12 0536 12/23/12 1454 12/22/12 0754 11/17/12 1701 03/24/11 0750 WBC 20.4* -- -- -- -- RBC 3.64* -- -- -- -- HGB 11.2* -- -- -- -- HCT 31.4* -- -- -- -- MCV 86.3 -- -- -- -- MCH 30.8 -- -- -- -- MCHC 35.7 -- -- -- -- RDW -- -- -- -- -- PLTCOUNT 256 -- -- -- -- BANDMANPCT 2 -- -- -- -- SEGMANPCT -- -- -- -- -- LYMPHMANPCT 5* -- -- -- -- MONOMANPCT 9 -- -- -- -- EOSMANPCT -- -- 2 -- -- ATYPLYMPHMAN -- -- 7* -- -- METAMANPCT -- -- -- -- -- MYELOMANPCT -- -- -- -- 1 PROMYELOMAN -- -- -- -- -- BLASTMANPCT -- -- -- -- -- IMMATUREPCT -- -- -- -- -- PLASMAMANPCT -- -- -- -- -- OTHERMANPCT -- -- -- -- -- NRBC -- -- -- -- -- WBCCORRECT -- -- -- -- -- RBCMORPH -- -- -- Normal -- WBCMORPH -- Normal -- -- -- Component Name 12/23/12 1943 12/20/12 0929 SODIUM 136 -- POTASSIUM 4.9 -- CHLORIDE 106 -- CO2 22 -- BUN 9.7 -- CREATININE 0.74 -- GLUCOSE 184* -- CALCIUM 7.97* -- ALBUMIN -- 4.2 ALKPHOS -- 142* ALT -- 40 AST -- 38 TBIL -- 0.6 TPROT -- 7.2 EGFR >60 -- Intake/Output Summary (Last 24 hours) at 12/24/12 0846 Last data filed at 12/24/12 0800 Gross per 24 hour Intake 6887.9 ml Output 3116.5 ml Net 3771.4 ml HEENT: No jaundice, NG in place with clear/bilious drainage Abdomen: Soft, appropriately tender Dressing over left flank is intact with minimal oozing and no prasad bleeding. TATI drain in place with s/s output. A/P: 17 year old s/p Liver transplant x2, S/P splenectomy. Febrile appropriately s/p splenectomy. Will need vaccines prior to d/c. Tylenol not contraindicated. Tachycardic: H/H lower than baseline, but wnl. Likely secondary to pain. S/P Liver transplant: On tacrolimus 1mg BID. Continue and check daily levels at 5 AM, one hour prior to dosing. Gastroenterology to make recommendations for levels. Valcyte for prophylaxis against CMV in stress response. Please get baseline LFTs. Nick Hopper MD 12/24/2012 8:53 AM NIGHT * Dannie Davila MD - 12/24/2012 8:38 AM CST Pediatric General Surgery Progress Note Admit Date: 12/23/2012 5:49 AM Hospital Day: 1 POD 1 lap converted to open splenectomy Subjective Febrile and tachycardic overnight, received 1L ns bolus. Currently rates pain at 4/10. Objective Vitals: 12/24/12 0400 12/24/12 0500 12/24/12 0600 12/24/12 0700 BP: 107/55 118/48 112/47 110/47 Pulse: 120 126 121 110 Temp: 100.8 ??F 101.6 ??F Resp: 17 17 18 13 Weight: SpO2: 95% 93% 98% Physical Exam Gen: no acute distress Resp: clear to auscultation bilaterally CV: tachycardic, regular rhythm Abd: soft, appropriately tender to palpation Dressing: sanguinous staining Assessment/Plan POD 1 lap converted to open splenectomy -Given patient's history of liver transplant x2, immunosuppression, recent splenectomy and current fever, will start Zosyn -Recommend patient ambulates today -Encouraged IS -Please remove Vinson -Continue morphine RETAIL OFFICE ASSOCIATE and PRN tylenol Dannie Davila MD 12/24/2012 8:38 AM NIGHT * Rashida Sandoval RN - 12/24/2012 7:06 AM CST Continue antibiotics for an additional 24 hours per surgery team as abd drain remains in place. Guera RN NIGHT * Adriane Smith MD - 12/23/2012 9:07 PM CST Pediatric Surgery Post op check POD 0 for lap converted to open splenectomy Subjective: Pt states that his pain is currently at a 5/10 but has been having increasing amounts of pain over the course of the night. iStat from OR came back with sodium of 166; however, repeat BMPwithin normal limits. Urinating via vinson with no issues. Patient returns from the OR after undergoing lap converted to open splenectomy Objective: Patient Vitals for the past 6 hrs: Temp Pulse Resp BP 12/23/12 2100 - 128 19 114/51 mmHg 12/23/12 2000 100.4 ??F 116 16 118/55 mmHg 12/23/12 1900 - 106 16 115/54 mmHg 12/23/12 1800 99.8 ??F 100 15 115/56 mmHg 12/23/12 1700 - 97 16 116/55 mmHg 12/23/12 1600 99.2 ??F 94 19 114/50 mmHg Urine output post op:471 Physical Exam: General appearance: alert, cooperative, no distress Lungs: breath sounds normal and symmetric; no rales or wheezes Abdomen: soft without mass, non-tender, with normal bowel sounds Wound: incision: clean and dry, no erythema Extremities: no clubbing, cyanosis or edema Assessment/Plan: POD 0 for lap converted to open splenectomy -HD stable, afebrile -adequate UOP post op -will increase pain control to morphine explosive operator supervisor 2mg with lockout of 15 minutes and then re-assess -dressings intact -overall recovering well, continue post op care Adriane Smith MD 12/23/2012 9:07 PM Pt with increasing tachycardia over the course of the evening. Will give 500cc NS bolus as well as check stat coags and CBC. Tmax noted to be 100.6. Will have RN sit patient up in bed and use IS. Adriane Smith, PGY-1 [phone] Pt continuing to have tachycardia throughout the night. Given an additional 500cc NS bolus. Noted to have Tmax of 101.8. UA and urine culture sent. CXR obtained which was wnl. Pt was given tylenol suppository x 1 which brought temperature down to 100.8. Pain well controlled with increase in morphine RETAIL OFFICE ASSOCIATE. Using IS hourly with assistance from RN. Drain output consistent and serosanguinous. UOP adequate. Adriane Smith, PGY-1 [phone] NIGHT * Ariadne Cardoza MD - 12/23/2012 2:31 PM CST PEDIATRIC CRITICAL CARE ATTENDING NOTE 12/23/2012 1400 PM to 2100 PM PICU # 1 POD 0 From Peds Surgery, previous notes in the chart, and Dr. 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 In [id number] , he was diagnosed with Idiopathic thrombocytopenic purpura (ITP) and autoimmune neutropenia . He was initially treated with Rituximab which improved the EBV load and initially the cytopenias. Thrombocytopenia returned, and he has beentreated with steroids (also on this for rejection, unclear what doses were being used for rejectionvs ITP) and IVIG. He was responsive to IVIG but only for short periods. Decision was made by Hematology that splenectomy may be beneficial, and patient evaluated by Surgery. He was scheduled to undergo laparoscopic splenectomy today on 12-23-12, but was found to have scarring and adhesions from prior surgeries and was converted to open procedure.in consultation with Transplant Surgery. He had blood loss estimated at 1200 ml and received 2 units of PRBC's and 2 units of platelets while in the OR.His platelets prior to procedure were 116. Regarding his hx of acute rejections post-recent transplant, difficult to appreciate much in the recent notes about level of rejection and control of this on current tacro dosing. He was admitted to the PICU for close monitoring and this care is warranted due to this patient's potential respiratory failure and potential circulatory failure. Admission weight: Weight: 55.393 kg (122 lb 1.9 oz) (12/23/12 0600) Most recent weight: Weight: 55.393 kg (122 lb 1.9 oz) (12/23/12 06) Patient Vitals for the past 6 hrs: Temp Pulse Resp BP 12/23/12 2100 - 128 19 114/51 mmHg 12/23/12 2000 100.4 ??F 116 16 118/55 mmHg 12/23/12 1900 - 106 16 115/54 mmHg 12/23/12 1800 99.8 ??F 100 15 115/56 mmHg 12/23/12 1700 - 97 16 116/55 mmHg 12/23/12 1600 99.2 ??F 94 19 114/50 mmHg Temp Av.3 ??F Min: 98.3 ??F Max: 100.4 ??F Pulse Av.2 Min: 76 Max: 128 Resp Av.8 Min: 15 Max: 22 SpO2 Av.3 % Min: 93 % Max: 99 % Respiratory System Airway: natural Chest: clear Respiratory effort: normal Resp Av.8 Min: 15 Max: 22 SpO2 Av.3 % Min: 93 % Max: 99 % Chest x-ray: Not indicated Plan: Close observation of respiratory status since patient on opiates for pain and not intubated. Component Name 08/11/10 0900 PHVENOUS 7.306 [id number] 57.2 [id number] <30.0 [id number] 48.5 [id number] -- BEVENOUS 2.0 Circulatory System Skin: warm, brisk cap refill, minimal edema Pulse Av.2 Min: 76 Max: 128 BP Min: 106/72 Max: 121/48 Auscultation: RRR, normal heart sounds, 2/6 systolic murmur at LSB, cap refill < 3sec; distal pulses equal Access: peripheral IV x 2 Drips: None Medications: No CV medications Plan: Close monitoring for dysrrhytmia, or tachycardia which might be an indication of blood loss and need for fluid or blood resuscitaiton. Patient Vitals in the past 24 hrs: 12/23/12 2100, Pulse:128 , Resp:19 , BP:114/51 mmHg 12/23/12 2000, Temp:100.4 ??F, Pulse:116 , Resp:16 , BP:118/55 mmHg 12/23/12 1900, Pulse:106 , Resp:16 , BP:115/54 mmHg 12/23/12 1800, Temp:99.8 ??F, Pulse:100 , Resp:15 , BP:115/56 mmHg 12/23/12 1700, Pulse:97 , Resp:16 , BP:116/55 mmHg 12/23/12 1600, Temp:99.2 ??F, Pulse:94 , Resp:19 , BP:114/50 mmHg 12/23/12 1500, Pulse:102 , Resp:22 , BP:119/53 mmHg 12/23/12 1400, Pulse:90 , Resp:19 , BP:117/53 mmHg 12/23/12 1345, Temp:98.8 ??F, Pulse:103 , Resp:20 , BP:121/48 mmHg 12/23/12 0600, Temp:98.3 ??F, Pulse:76 , Resp:16 , BP:106/72 mmHg Fluids, Renal, Electrolytes, Nutrition and Gastrointestinal System 12-23-12 Intake 6094 Output 2378 TATI 79 NG 83 Net 3715 Fluids: dextrose 5% and 0.45% NaCl with KCl 20 mEq infusion, Intravenous, Continuous Diet: NPO Abdomen: Soft, appropriately tender Dressing over left flank is intact with minimal oozing. No prasad blood appreciated. TATI drain in place, just serosanquinous drainage, no prasad blood. GI treatment: nexium 40 mg IV q day Plan: Close observation of TATI and dressing output as well as abdomen appearance. Follow UOP closelyas measure of systemic and renal perfusion. Component Name 12/23/12194212/20/1292811/16/122017 SODIUM 136 142 142 POTASSIUM 4.9 4.0 3.8 CHLORIDE 106 109* 107 CO2 22 20* 25 BUN 9.7 11.3 10.1 CREATININE 0.74 0.85 0.91 GLUCOSE 184* 90 95 CALCIUM 7.97* 8.93* 9.78 Component Name 12/20/12 0911/16/12201711/11/12 1019 ALBUMIN 4.2 4.1 4.2 Component Name 09/20/12 0800 04/20/12 0841 03/15/12 0800 MAGMGDL 1.9 1.9 1.9 Component Name 12/20/12 0929 11/16/12201711/11/12 1019 10/18/12 0816 08/09/12 0840 04/20/12 0841 ALBUMIN 4.2 4.1 4.2 -- -- -- ALKPHOS 142* 144* 155* -- -- -- ALT 40 52* 81* -- -- -- AST 38 34 37 -- -- -- TBIL 0.6 0.6 0.6 -- -- -- DBIL -- -- -- 0.24 0.25 0.25 TPROT 7.2 7.1 7.6 -- -- -- Immunology tacrolimus 1 mg BID valcyte /valgancyclovir HCl as prophylaxis for CMV S/P liver transplant Infectious Disease Temp Av.3 ??F Min: 98.3 ??F Max: 100.4 ??F Cultures: none Antibiotics: Sherly Plan: continue current management Component Name 12/23/12 1454 12/23/12 0653 WBC 25.8* -- RBC 4.17 -- HGB 12.8 -- HCT 36.0 -- MCV 86.3 -- MCH 30.7 -- MCHC 35.6 -- RDW -- -- PLTCOUNT 225 -- LYMPHPCT -- 24 MONOCYTPCT -- 14* EOSINPCT -- 4 BASOPHILPCT -- 0 NRBC -- -- GRANPCT -- -- MONOCYTPCT -- 14* EOSINPCT -- 4 BASOPHILPCT -- 0 Component Name 12/23/12 1454 12/23/12 0653 12/22/12 0754 WBC 25.8* 6.5 5.9 HGB 12.8 15.8 15.3 HCT 36.0 42.7 41.6 PLTCOUNT 225 116* 92* Hematological System RBCs: no active issues, counts adequate Platelets: no active issues, counts adequate Coagulation: no active issues Treatment: none Plan: Received 2 units of pRBC's in OR for 1200 ml of blood output. Follow closely for evidence of additional bleeding. Hemodynamics incluing HR and BP. Continue current management Neurological System Mental status: Tired, appropriately answering questions. Cranial nerves: no focal deficits Other findings: no focal deficits Other meds: none Pain control: adequate Pain medications: Morphine RETAIL OFFICE ASSOCIATE with 1 mg with 10 minute lockout. Have recommended to surgery to stop the PRN dilaudid Anxiolysis control: adequate Anxiolysis medications: none Plan: Continue current management Treatment plans were discussed with family, Pediatric Surgery, Dr. Fellow; and the PICU Team. Serious morbidity is expected without ongoing evaluation and possible intervention in the PICU. I have spent 60 minutes of Critical Care Time managing this patient on 12/23/2012 Ariadne Cardoza MD Beeper: [phone] NIGHT * Melia Acevedo MD - 12/23/2012 2:10 PM CST Pediatric PICU Resident Admission Note: Beka is a 17 yo male with history of autoimmune hepatitis s/p liver transplant at the age of 4 years and repeat transplant in ?2005 due to vascular graft failure. Per review of previous notes in the chart, he was noted to have ITP and autoimmune neutropenia starting three years ago, initially treated with Rituximab which improved the EBV load and initially the cytopenias. Thrombocytopenia returned, and he has been treated with steroids (also on this for rejection, unclear what doses were being used for rejection vs ITP) and IVIG. He was responsive to IVIG but only for short periods. Decision was made by Hematology that splenectomy may be beneficial at this time, and patient evaluated by Surgery. He was scheduled to undergo laparoscopic splenectomy today but was found to have scarring and adhesions from prior surgeries and was converted to open procedure. He had blood loss estimated ft2129 ml and received 2 units of PRBC's and 2 units of platelets while in the OR. His platelets prior to procedure were 116. Regarding his hx of acute rejections post-recent transplant, difficult to appreciate much in the recent notes about level of rejection and control of this on current tacro dosing. On exam: Gen: sedated, but opens his eyes to verbal commands, moves extremities with commands (later exams he is A&Ox3 Heent: PERRL, EOMI, moist membranes CV: RRR, normal heart sounds, 2/6 systolic murmur at LSB, cap refill < 3sec; distal pulses equal Resp: breath sounds clear and equal, slightly diminished at bases Abd: soft, tender, multiple dressings with mild sanguinous drainage, bowel sounds hypoactive, TATI drain exciting right lower abdomen Ext: no edema or cyanosis Skin: no petechiae or purpura noted A/P: Patient Active Problem List Diagnosis Date Noted ??? ITP (idiopathic thrombocytopenic purpura) 11/16/2012 Priority: [place] is a 17yo with h/o chronic ITP possibly related to chronic immune suppression from post-liver transplant status. 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 He has been followed by Heme/onc receiving chronic steroids and IVIG without significant i mprovement. Decision made to remove spleen and pt planned for laparoscopic splenectomy today, but it was complicated by relation to liver and size of vessels. Patient had large amount of blood loss and received 2 units PRBC and 2 unit platelets while in OR. Plt prior to procedure today 116, and post-op up to 225. Plan: - Pain control per Surgery, at this time morphine RETAIL OFFICE ASSOCIATE without basal and 1 mg q10 bolus - Repeat CBC in am, consider repeat sooner if increasing bleeding from drain - Will appreciate Hematology involvement to re-evaluate need for steroids post- operatively if splenectomy curative ??? 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 Some degree of rejection, currently on Tacro 1 mg BID. ??? Hypogammaglobulinemia 02/17/2010 Receives IVIG q6wks, was receiving additionally due to ITP. Last infusion Wednesday 12/20. Melia Acevedo MD 12/23/2012 NIGHT documented in this encounter H&P Notes * Adrinae Smith MD - 12/23/2012 3:36 AM CST Images from the original note were not included. Attending Physician: Gregory Fung MD Office 12/23/2012 3:37 AM Pediatric General Surgery History and Physical Encounter Date: 12/23/2012 Patient's Primary Care Physician: Vilma Spangler Name: Beka Nichols Age: 17 y.o. Race: Sex: male Date: 12/23/2012 Chief Complaint/History of Present Illness Chief Complaint: ITP Referred by: Hematology Beka Nichols is a 17 y[address] male. Per Dr. Fung's clinic note: The patient is a 17yo boy who Benny seeing preoperatively for splenectomy to treat his chronic ITP. Pt has hypobulinemia complicatedby overwhelming viral hepatitis as a 4-year-old which required liver transplant x 2 (vascular failure of first transplant). Pt has since had several episodes of acute rejection but is now maintained on Tacrolimus 1 BID and 30mg Prednisone BID. He continues to have low platelet counts and the hematology service has requested that I evaluate him for splenectomy. Currently, the patient denies any change to his medical, allergy, surgery, or medication history. Pt has been NPO since 1700 yesterday evening. Did not take his prograf this AM. Past Medical History Diagnosis Date ??? ITP (idiopathic thrombocytopenic purpura) ??? Platelet disorder ??? Hx of liver transplant 1998 ??? 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 ??? Unspecified disorder of liver ??? Complication of anesthesia PONV Past Surgical History Procedure Date ??? Liver transplant 1998 ??? Pr dental surgery procedure 2011 Removal of [place] teeth in dental office under sedation ??? Ent surgery 03/2012 Excision of left neck deep cervical node ??? Liver biopsy multiple ??? Bone marrow biopsy multiple Family History Problem Relation Age of Onset ??? Cancer Mother ??? Diabetes Sister ??? Cancer Maternal Grandmother ??? Cancer Maternal Grandfather ??? Hypertension Paternal Grandmother ??? Rheumatological Disease Paternal Grandfather ??? Allergy (Severe) Neg Hx ??? Anesthesia Reaction Sister difficulty awakening ??? Arrhythmia Neg Hx ??? Asthma Neg Hx ??? Broken Bones Neg Hx ??? Clotting Disorder Neg Hx ??? Collagen Disease Neg Hx ??? Dislocations Neg Hx ??? Hypercholesterolemia Neg Hx ??? Marfan Syndrome Neg Hx ??? IN Neg Hx ??? Osteoporosis Neg Hx ??? Scoliosis Neg Hx ??? Severe Sprains Neg Hx ??? Sickle Cell Anemia Neg Hx ? ? Sudd. <30 Neg Hx Social History Occupational History ??? Not on file. Social History Main Topics ??? Smoking status: Never Smoker ??? Smokeless tobacco: Never Used ??? Alcohol Use: No ??? Drug Use: No ??? Sexually Active: Not on file No prescriptions prior to admission No Known Allergies Review of Systems Constitutional: Negative Eyes: Negative Ears, nose, mouth, and throat: Negative Respiratory: Negative Cardiovascular: Negative Gastrointestinal: Negative Genitourinary:Negative Skin: Negative Hematologic/lymphatic: Positive for ITP Lives with: biological parents Physical Examination: There were no vitals taken for this visit. Wt Readings from Last 3 Encounters: 12/22/12 55.7 kg (122 lb 12.7 oz) (5.12%*) 12/20/12 55.6 kg (122 lb 9.2 oz) (4.98%*) 11/22/12 56.1 kg (123 lb 10.9 oz) (5.80%*) * Growth percentiles are based on CDC 2-20 Years data. Ht Readings from Last 3 Encounters: 12/22/12 1.695 m (5' 6.73 ) (15.32%*) 12/20/12 1.695 m (5' 6.73 ) (15.32%*) 11/22/12 1.692 m (5' 6.61 ) (14.40%*) * Growth percentiles are based on CDC 2-20 Years data. There is no height or weight on file to calculate BMI. No unique date with height and weight on file. No weight on file. No height on file. Exam There were no vitals filed for this visit. General appearance: alert, cooperative, no distress Head: normocephalic, without trauma Eyes: sclera and conjunctiva clear Chest: no tenderness Abd: large well healed surgical scar, soft, NT/ND Extremities: no edema Skin: no rashes or other abnormalities are noted Neurologic: mental status normal cranial nerves II - XII are grossly intact Assessment This is a Beka Nichols is a 17 y.o. male with ITP here for laparoscopic splenectomy Plan - OR today for lap splenectomy - NPO - Crossmatch for 2 units pRBCs as well as 2 units platelets - CBC now - Will contact heme/onc regarding need for steroids at this time. - The patient understands the risks and benefits of the procedure and wishes to proceed. Thank you for the consult Adriane Smith MD 12/23/2012 3:37 AM NIGHT documented in this encounter Procedure Notes * Document, Scanned - 12/30/2012 6:39 AM CSTAssociated Order(s): PATHOLOGY/CYTOLOGY REPORT ORDER NIGHT documented in this encounter Consult Notes * Felipe Mon MD - 12/26/2012 3:12 PM CST PEDIATRIC GI ATTENDING NOTE 12/26/2012 I have interviewed the patient/family and examined Beka Nichols. I have reviewed and confirmed/revised the findings of the resident. My findings (santana elements and supplemental information) are as follows. Beka Nichols is a 17-year-old / Male status post cadaveric liver transplant. He has history of autoimmune neutropenia and thrombocytopenia. He has been followed by Dr. Chavez. He is currently status post op from conversion of lap splenectomy to open on 12/23/12. The patient had been receiving IVIG for chronic hypogammaglobulinemia. He did have problems with tachycardic due to pain and hypovolemia and has received fluid bolus and pain medications. He appears better this AM. PAST MEDICAL HISTORY: Past Medical History Diagnosis Date ??? ITP (idiopathic thrombocytopenic purpura) ??? Platelet disorder ??? Hx of liver transplant 1998 ??? 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 ??? Unspecified disorder of liver ??? Complication of anesthesia PONV MEDICATIONS: Current Facility-Administered Medications Medication Dose Route Frequency Provider Last Rate Last Dose ??? ceFAZolin pediatric IV 1,000 mg 1,000 mg Intravenous q8h Dannie Davila MD 1,000 mg at 12/26/12 0828 ??? valGANciclovir (VALCYTE) tablet 450 mg 450 mg Oral QDAY WITH BREAKFAST Kay Marc MD 450 mg at 12/26/12 0828 ??? fentaNYL (SUBLIMAZE) injection 25 mcg 25 mcg Intravenous q1h PRN Adriane Smith MD ??? acetaminophen (TYLENOL) suppository 325 mg 325 mg Rectal q4h PRN Adriane Smith MD 325 mg at 12/24/12 0620 ??? tacrolimus (PROGRAF) capsule 1 mg 1 mg Oral BID Robert Cameron MD 1 mg at 12/26/12 0828 ??? dextrose 5% and 0.45% NaCl with KCl 20 mEq infusion Intravenous Continuous Robert Cameron MD100 mL/hr at 12/26/12 0744 ??? ondansetron (ZOFRAN) injection 4 mg 4 mg Intravenous q8h PRN Robert Cameron MD 4 mg at 12/24/12 1208 ??? naloxone (NARCAN) injection 2 mg 2 mg Intravenous PRN Robert Cameron MD ??? esomeprazole (NexIUM) injection 40 mg 40 mg Intravenous QDAY Gregory Fung MD 40 mg at 12/26/12 0828 ??? phenol (CHLORASEPTIC) 1.4 % liquid Oral PRN Adriane Smith MD ALLERGIES: No Known Allergies FAMILY/SOCIAL HISTORY Family History Problem Relation Age of Onset ??? Cancer Mother ??? Diabetes Sister ??? Cancer Maternal Grandmother ??? Cancer Maternal Grandfather ??? Hypertension Paternal Grandmother ??? Rheumatological Disease Paternal Grandfather ??? Allergy (Severe) Neg Hx ??? Anesthesia Reaction Sister difficulty awakening ??? Arrhythmia Neg Hx ??? Asthma Neg Hx ??? Broken Bones Neg Hx ??? Clotting Disorder Neg Hx ??? Collagen Disease Neg Hx ??? Dislocations Neg Hx ??? Hypercholesterolemia Neg Hx ??? Marfan Syndrome Neg Hx ??? IN Neg Hx ??? Osteoporosis Neg Hx ??? Scoliosis Neg Hx ??? Severe Sprains Neg Hx ??? Sickle Cell Anemia Neg Hx ? ? Sudd. <30 Neg Hx History Social History ??? Marital Status: Single Spouse Name: N/A Number of Children: N/A ??? Years of Education: N/A Occupational History ??? Not on file. Social History Main Topics ??? Smoking status: Never Smoker ??? Smokeless tobacco: Never Used ??? Alcohol Use: No ??? Drug Use: No ??? Sexually Active: Not on file Other Topics Concern ??? Not on file Social History Narrative ??? No narrative on file PHYSICAL EXAMINATION: 4.68%ile based on CDC 2-20 Years [id number] data. BP 107/61 Pulse 82 Temp 97.8 ??F Resp 18 Wt 55.393 kg (122 lb 1.9 oz) BMI 18.72 kg/m2 HEENT: Atraumatic. Chest: Equal air entry bilaterally. Abdomen: Soft, tender at incision site, no site drainage, nondistended. Bowel sounds sluggish. 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 Extremities: Warm, well perfused. Cap refill less than 2 seconds. No results found for this or any previous visit (from the past 6 hour(s)). Beka Nichols is a 17-year-old / Male status post cadaveric liver transplant. He has history of autoimmune neutropenia and thrombocytopenia and is status post splenectomy. - I discussed patient with the surgery team, our transplant co-ordinators and Dr. Sosa. - Continue surgical care. - Appears to have high drain lipase, though serum lipase appears okay. If persists may consider ultrasound abdomen to evaluate pancreas and per-pancreatic region. - Per surgery team : Change Valcyte to 450 q day with a goal of leaving patient on dosing for 3 months for prophylaxis with stress of Surgery ( i.e history of last donor CMV + patient last tested CMV-. ) Would also add Bactrim for PCP prophylaxis for same time period. - Current prograft is level is 7.7. I think our target level should be around 2-5. - Please plan a trough Prograft level (30 minutes prior to dosing), Magnesium, CMP, Direct bilirubin, CBC. We shall plan dose adjustments based on these labs. - Plan CMV antigenemia, EBV quantitative titers. - May consider slow advancement of enteral feeds upon return of bowel sounds and once cleared by surgery teams. - I discussed with parents potential transition to the adult service once he recovers from current surgery. Our transplant co-ordinators can help with the appointments. - Continue hematology followup. Thank you for your consult. Please do not hesitate to contact for any questions. NIGHT * Robert Zamora MD - 12/23/2012 2:51 PM CST Transplant Surgery Consultation Patient's Primary Care Physician: Vilma Spangler Name: Beka Nichols Age: 17 y.o. Race: Sex: male Admit Date: 12/23/2012 5:49 AM History of Present Illness: Beka Nichols is a 17 y.o. Male with chronic ITP causing thrombocytopenia taken to the OR for laparoscopic splenectomy. He also has a history of acute viral hepatitis with liver TXP x2. The operation had to be converted to open splenectomy due to scarring from prior operations. Transplant surgery was emergently consulted for assistance in the OR. Review of Systems: Unable to be reviewed due to the fact that the patient was in the OR. Past Medical History Diagnosis Date ??? ITP (idiopathic thrombocytopenic purpura) ??? Platelet disorder ??? Hx of liver transplant 1998 ??? 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 ??? Unspecified disorder of liver ??? Complication of anesthesia PONV Past Surgical History Procedure Date ??? Liver transplant 1998 ??? Pr dental surgery procedure 2011 Removal of [place] teeth in dental office under sedation ??? Ent surgery 03/2012 Excision of left neck deep cervical node ??? Liver biopsy multiple ??? Bone marrow biopsy multiple ??? Splenectomy 12/23/2012 N/A; SPLENECTOMY LAPAROSCOPIC ??? Splenectomy 12/23/2012 SPLENECTOMY Medications & Allergies: Current Facility-Administered Medications Medication Dose Route Frequency Provider Last Rate Last Dose ??? HYDROmorphone (DILAUDID) injection 0.5 mg 0.5 mg Intravenous q15 min PRN Shelly Lawrence MD ??? tacrolimus (PROGRAF) capsule 1 mg 1 mg Oral BID Robert Cameron MD ??? dextrose 5% and 0.45% NaCl with KCl 20 mEq infusion Intravenous Continuous Robert Cameron MD100 mL/hr at 12/23/12 1415 ??? ceFAZolin pediatric IV 1,000 mg 1,000 mg Intravenous q8h Robert Cameron MD ??? ondansetron (ZOFRAN) injection 4 mg 4 mg Intravenous q8h PRN Robert Cameron MD ??? penicillin v potassium (VEETIDS) tablet 250 mg 250 mg Oral BID Robert Cameron MD ??? naloxone (NARCAN) injection 2 mg 2 mg Intravenous PRN Robert Cameron MD ??? morphine injection 4 mg 4 mg Intravenous Once Robert Cameron MD ??? morphine 1 mg/ml RETAIL OFFICE ASSOCIATE Intravenous RETAIL OFFICE ASSOCIATE Robert Cameron MD ??? esomeprazole (NexIUM) injection 40 mg 40 mg Intravenous QDAY Gregory Fung MD Review of patient's allergies indicates no known allergies. Family History Problem Relation Age of Onset ??? Cancer Mother ??? Diabetes Sister ??? Cancer Maternal Grandmother ??? Cancer Maternal Grandfather ??? Hypertension Paternal Grandmother ??? Rheumatological Disease Paternal Grandfather ??? Allergy (Severe) Neg Hx ??? Anesthesia Reaction Sister difficulty awakening ??? Arrhythmia Neg Hx ??? Asthma Neg Hx ??? Broken Bones Neg Hx ??? Clotting Disorder Neg Hx ??? Collagen Disease Neg Hx ??? Dislocations Neg Hx ??? Hypercholesterolemia Neg Hx ??? Marfan Syndrome Neg Hx ??? IN Neg Hx ??? Osteoporosis Neg Hx ??? Scoliosis Neg Hx ??? Severe Sprains Neg Hx ??? Sickle Cell Anemia Neg Hx ? ? Sudd. <30 Neg Hx Physical Examination: (Post-op) BP 117/53 Pulse 90 Temp 98.8 ??F Resp 19 Wt 55.393 kg (122 lb 1.9 oz) BMI 18.72 kg/m2 Wt Readings from Last 1 Encounters: 12/23/12 55.393 kg (122 lb 1.9 oz) (4.68%*) * Growth percentiles are based on [facility] 2-20 Years data. General Appearance: comfortable cooperative HEENT: NGT with minimal bilious drainage Respiratory: unlabored breathing Cardiac: regular rate and rhythm, S1, S2 normal, no murmur, regular rate and rhythym with no murmurs, rubs or gallops Abdomen: soft, no masses or tenderness; bowel sounds active x 4 quads; TATI drain with sanguinous drainage Wound: minimal ss staining on dressing Skin: warm and dry, normal turgor Lab and/or Imaging Studies: Component Name 12/23/12 1454 12/22/12 0754 11/17/12 1701 03/24/11 0750 WBC 25.8* -- -- -- RBC 4.17 -- -- -- HGB 12.8 -- -- -- HCT 36.0 -- -- -- MCV 86.3 -- -- -- MCH 30.7 -- -- -- MCHC 35.6 -- -- -- RDW -- -- -- -- PLTCOUNT 225 -- -- -- BANDMANPCT 3 -- -- -- SEGMANPCT -- -- -- -- LYMPHMANPCT 4* -- -- -- MONOMANPCT 12 -- -- -- EOSMANPCT -- 2 -- -- ATYPLYMPHMAN -- 7* -- -- METAMANPCT -- -- -- -- MYELOMANPCT -- -- -- 1 PROMYELOMAN -- -- -- -- BLASTMANPCT -- -- -- -- IMMATUREPCT -- -- -- -- PLASMAMANPCT -- -- -- -- OTHERMANPCT -- -- -- -- NRBC -- -- -- -- WBCCORRECT -- -- -- -- RBCMORPH -- -- Normal -- WBCMORPH Normal -- -- -- Component Name 12/20/12 0929 11/16/12201711/11/12 1019 SODIUM 142 142 142 POTASSIUM 4.0 3.8 3.6 CHLORIDE 109* 107 106 BUN 11.3 10.1 12.6 CREATININE 0.85 0.91 0.87 GLUCOSE 90 95 56* CALCIUMION -- -- -- CALCIUMIONAD -- -- -- Assessment: 17 y.o. male with history of liver TXP x2 with intraoperative bleeding complications during open splenectomy - re-start home immunosuppression, ppx with valcyte - post-operative care managed by Peds Surgery team - will continue to follow Patient seen and discussed with Dr. Ian Zamora MD 12/23/2012 2:56 PM NIGHT * Kay Marc MD - 12/23/2012 2:51 PM CST See note for OR NIGHT documented in this encounter Nursing Notes * Katie Kay RN - 12/23/2012 8:15 AM CST Social Service consult ordered for Advance Directive NIGHT documented in this encounter OR Notes * Operative - Kay Marc MD - 12/23/2012 4:56 PM CST Pre-operative Diagnosis: S/p 2 x liver transplant for autoimmune hepatitis. First graft lost due to? Unknown reasons early post operative, requiring re- operation with unknown arterial inflow reconstruction. Now with history of ITP. Brought to OR by Pediatric Surgery Service for lap now converted to open splenectomy. Post operative Diagnosis: s/p liver transplant x 2, ITP , hostile abdomen, hepatomegaly Procedure Splenectomy Surgeon: Ben Fung MD, Nish Masters MD, Edmund Ardon MD Intra-operative consult: Triston Marc MD Anesthesia: General endotracheal anesthesia ASA Class: 5 Procedure: I was called emergently to the operating room by Dr Forde to assist in splenectomy due bleeding in the patient and a difficult exposure as the patient was a redo liver transplant recipient. The procedure was underway upon my arrival. I did not know this patient prior to arrival in the operating roomso do not know the reconstruction or inflow of his current allograft. As he was transplanted prior to [facility], there was no operative records available in the EMR. The left portion of the chevron incision had been opened for the open splenectomy. The liver appeared to be large and had been transected for a small length of the left lateral segment. It was densely adherent to the anterior abdominal wall. There was bleeding from the hilum of the spleen and visualization was difficult. After packs were placed in the left upper quadrant, the incision was extended past the midline. The liver was freedpartially from the abdominal wall and retracted to the patients right. The stomach was gently dissected from the inferior portion of the left lateral segment of the allograft to facilitate manuevering the liver. The shanita was not exposed. The liver itself was large but soft. There was no evidence of fibrosis or cirrhosis. The edges of the transected liver were not bleeding. Once the liver was mobilized, the spleen hilum was exposed. Points of bleeding at the distal end ofthe pancreas were controlled with an ángela clamp and were clipped with control of the bleeding. Thesplenic hilum was adherent to the tail of the pancreas and the surrounding tissues. The spleen was mobilized lateral to medial using the cautery and the ligasure to take down adhesions to the lateral side wall. Once the spleen was surrounded, an endo SANJANA vascular stapler was used to staple across the hilum. The area was inspected for bleeding. Again the ángela clamps were used to expose and control severalpoints of bleeding on the splenic vein and a 3.0 prolene was placed in the vein for control. A drain was placed through a separate stab wound incision as the patient is on chronic immunosuppression and the pancreas was in close proximity to the hilum. Hemostasis appeared to be adequate and I scrubbed out. The rest of the procedure will be documented by the Pediatric surgery team. I was present for this portion of the procedure. A formal consult will be filled out when the patient arrives in the PICU and the transplant team will follow for assistance with post operative management of his immunosuppression and viral /bacterial prophylaxis. btn NIGHT * Operative - Gregory Fugn MD - 12/23/2012 1:44 PM CST PEDIATRIC SURGERY OPERATIVE NOTE Date of Procedure: 12/23/2012 Patient name: Beka Nichols Preoperative diagnosis: Idiopathic Thrombocytopenic Purpura Postoperative diagnosis: Same Procedure performed: 1) Laparoscopic converted to open splenectomy 2) Repair of small bowel enterotomy Surgeon: Gregory Fung MD Veterinarian: Nish Forde MD; Heena Marc MD; Hipolito Ardon MD; Anesthesia: General endotracheal anesthesia and Local anesthesia 0.5% bupivacaine Indications: This is a 17 y.o. male with ITP who is also s/p orthotopic liver transplant (second transplant in 1998). He has required IVIG and steroids to maintain his platelet count. Due to the recalcitrant nature of his ITP, his business information consultant is requesting a splenectomy. We have discussed with thefamily that this may be a difficult operation due to his previous surgeries and the possibility of needing to perform the procedure open. We have discussed the potential benefits versus risks of the operation and the parents wish to proceed. Findings: We initiated laparoscopically, however we were unable to gain any domain as we were in a nest of adhesions. As such we proceeded to a laparotomy, with a left subcostal incision that extended from his previous chevron in a previously uninvolved region of his abdominal wall . We encounteredthe liver adherent to the anterior abdominal wall fascia, as were portions of the small intestine. An enterotomy was inadvertently made during entry, and it was immediately identified. The spleen wasdifficult to expose in the left upper quadrant due to its position abutting the diaphragm. The hilar vessels were also difficult to expose, and the artery was very large and tortuous. Procedure: The patient was brought into the operating room and transferred to the operating table. The patient underwent general anesthetic induction and intubation without complication. After optimal positioning with the left side elevated and padding of all pressure points, the abdomen was prepped and draped in standard fashion. IV antibiotics were given prior to incision. A timeout was performed, verifying the correct patient, procedure and site. We began with an infraumbilical incision, made within the umbilical crease. The fascia was incised and a port placed. The laparoscope was within the port, and it appeared we were through the fascia. Insufflation was started, however on placing the laparoscope we were not free within the peritoneal cavity. We made two further attempts to insufflate the peritoneal cavity, however this was not successful. We then took the port out and made an incision in the left upper quadrant. Our incision was made along the left aspect of his previous chevron incisional scar. The incision was carried through the subcutaneous tissue to the anterior abdominal wall fascia. We then made our fascial incision approximately two centimeters inferior to our skin incision in order to avoid the costal margin. The muscle was transected slowly with cautery. On opening the posterior fascial layer and peritoneal lining, we immediately noted a bud of mucosa as the bowel was densely adherent to the peritoneum even in this virgin area. The enterotomy was tagged closed with 3-0 silk suture temporarily. We were able to enter the peritoneal cavity at the lateral aspect of our incision. On extending the fascial opening medially we also caused a minor injury to the left lateral lobe of the transplant liver that was in direct apposition to the fascia. Hemostasis of the liver was achieved with cautery. Once the peritoneal cavity was entered, we encountered many tenaciously dense adhesions and took these down with sharp dissection. Adhesions to the anterior abdominal wall in the left upper quadrant were taken with Metzenbaum scissors. An Omni track retractor system was placed to aid in the exposure. We freed the adherent small bowel and then began to take down the white line of Toldt, freeing the splenic flexure. This allowed us to visualize the inferior pole of the spleen. Nonetheless, the spleen was quite high in the left upper quadrant and I was concerned that the extremely large splenic vessels that we were beginning to see in the far upper aspect of our wound were going to be difficult to control. Having spent ~2.5 hours taking down the adhesions and still finding difficulty in establishing domain the left upper quadrant, I requested my partner Eula Lozada to assist me in mobilizing the liver/pancreas. Upon evaluation of this, Dr. Forde recommended that we have Dr. Sosa assist in this, at which point we contacted her and she graciously assisted me in the remainder of the mobilization. We freed the spleen of splenocolic attachments with a combination of cautery and Ligasure. A splenule was noted at the hilum, and this was removed, dividing the vessels with Ligasure and a vascular clip. We began to divide lower pole vessels with the Ligasure as we worked our way to the hilum of the spleen. The tail of the pancreas was identified and this was mobilized medially. The inferior aspect of the hilar vessels were identified and the Ligasure fired. There was significant bleeding. The abdominal wall incision was extended across the midline, along the chevron scar. The subcutaneous tissue, muscle and fascia were divided. The liver was then dissected free of its adhesive attachments to the anterior abdominal wall. This allowed us to mobilize the liver and stomach medially, in orderto more clearly see the hilar vessels. Argon beam coagulation was used to control hepatic capsular bleeding that occurred with mobilization. Attention was again turned to the splenic hilum. With thisexposure we were able to identify the bleeding vessel. A large clip was placed, followed by a 3-0 pr olene ligature. The bleeding was controlled with these maneuvers. We then continued across the remainder of the hilum with a combination of clips and Ligasure. The short gastric vessels were taken with Ligasure. The spleen was then completely free of all attachments. It was passed off of the field as specimen. A second splenule was noted in the resection bed. This was freed from it's pedicle witha vascular stapler, then passed off of the field as specimen. A combination of cautery and Argon beam was used to control any free bleeding in the area. The colon and stomach were returned to the left upper quadrant. The NG position was checked, it was appreciated in the fundus of the stomach after repositioning by the television engineering teacher. Attention was turned to the enterotomy. The previously placed silk suture was removed. We closed the defect transversely with interrupted 3-0 vicryl sutures. Following this, Lembert sutures with 3-0 silk were placed. The lumen was widely patent. A 10F ad drain was then placed in the left upper quadrant and positioned along the tail of the pancreas. The anterior abdominal wall was then closed in layers. A running 0 vicryl suture was used to close the posterior fascia, the transversalis fascia, and a second running suture was utilized to approximate the external oblique fascia. It was also used to approximate the rectus sheath in the midline. The subcutaneous tissue was approximated with 3-0 vicryl interrupted, and the skin with a running 4-0Monocryl. The umbilical fascia was closed with an 0 vicryl, and the skin with 4-0 Monocryl. The drain was secured with 3-0 nylon suture. The wounds were dressed with mastisol, steristrips, telfa and tegaderm. The patient was extubated and taken to the recovery room in satisfactory condition. I was present for the entirety of the procedure. Complications: Enterotomy, >1L blood loss EBL: 1200 cc IVF: 3000mL crystalloid Blood Products: 2 units PRBC, 2 units Platelets UOP: 350mL Specimens: 1) Spleen, 2) Splenule x2 Gregory Fung MD 12/28/2012 6:01 PM NIGHT documented in this encounter Miscellaneous Notes * Miscellaneous Scans - Document, Scanned - 12/30/2012 6:39 AM CST NIGHT * Miscellaneous Scans - Document, Scanned - 12/30/2012 6:39 AM CST NIGHT * Miscellaneous Scans - Document, Scanned - 12/30/2012 6:39 AM CST NIGHT documented in this encounter Plan of Treatment Not on file documented as of this encounter Procedures Procedure Name Priority Date/Time Associated Diagnosis Comments PATHOLOGY/CYTOLOGY REPORT ORDER 12/30/2012 6:39 AM RN NIGHT LIPASE FLUID Routine 12/28/2012 10:40 AM RN NIGHT AMYLASE FLUID Routine 12/28/2012 10:40 AM RN NIGHT LIPASE BLOOD Routine 12/28/2012 8:47 AM RN NIGHT AMYLASE BLOOD Routine 12/28/2012 8:47 AM RN NIGHT HEPATIC FUNCTION PANEL Pre-Op 12/28/2012 5:32 AM RN NIGHT LIPASE BLOOD AM Draw 12/28/2012 5:32 AM RN NIGHT AMYLASE BLOOD AM Draw 12/28/2012 5:32 AM RN NIGHT LIPASE FLUID Routine 12/28/2012 4:29 AM RN NIGHT AMYLASE FLUID Routine 12/28/2012 4:29 AM RN NIGHT TACROLIMUS LEVEL Routine 12/27/2012 7:05 AM RN NIGHT NADINE-BORREGO VIRUS PCR QUANT BLOOD/CSF Routine 12/27/2012 7:05 AM RN NIGHT HEPATIC FUNCTION PANEL Pre-Op 12/27/2012 7:05 AM RN NIGHT CROSSMATCH RBC LEUKOREDUCED Routine 12/27/2012 12:12 AM RN NIGHT CROSSMATCH RBC LEUKOREDUCED Routine 12/27/2012 12:12 AM RN NIGHT US ABDOMEN LTD W COMP DOPPLER STAT 12/26/2012 10:15 AM RN NIGHT Hypogammaglobulinemia (HCC) ITP (idiopathic thrombocytopenic purpura) Neutropenia associated with autoimmune disease (HCC) Cellulitis and abscess of face Lymphadenopathy History of liver transplant (HCC) Autoimmune hepatitis (HCC) Autoimmune hepatitis s/p liver transplant CYTOMEGALOVIRUS DNA RT-PCR QUANT AM Draw 12/26/2012 4:26 AM RN NIGHT HEPATIC FUNCTION PANEL Pre-Op 12/26/2012 4:26 AM RN NIGHT CYTOMEGALOVIRUS ANTIBODY IGG/IGM BLOOD Routine 12/25/2012 2:29 PM RN NIGHT HERPES VIRUS 6 ANTIBODY IGG Routine 12/25/2012 2:29 PM RN NIGHT HEPATIC FUNCTION PANEL Pre-Op 12/25/2012 2:29 PM RN NIGHT LIPASE BLOOD Routine 12/25/2012 11:05 AM RN NIGHT AMYLASE BLOOD Routine 12/25/2012 11:05 AM RN NIGHT LIPASE FLUID Routine 12/25/2012 10:33 AM RN NIGHT AMYLASE FLUID Routine 12/25/2012 10:33 AM RN NIGHT TACROLIMUS LEVEL Routine 12/25/2012 5:36 AM RN NIGHT CBC W/O DIFFERENTIAL AM Draw 12/25/2012 5:36 AM RN NIGHT HEPATIC FUNCTION PANEL Routine 12/24/2012 9:08 AM RN NIGHT CULTURE BLOOD Timed 12/24/2012 8:30 AM RN NIGHT CULTURE BLOOD Timed 12/24/2012 8:29 AM RN NIGHT DIFFERENTIAL MANUAL Routine 12/24/2012 5:36 AM RN NIGHT CBC W AUTO DIFFERENTIAL AM Draw 12/24/2012 5:36 AM RN NIGHT GLUCOSE - POINT OF CARE Routine 12/24/2012 5:32 AM RN NIGHT XR CHEST 1VW STAT 12/23/2012 11:29 PM RN NIGHT ITP (idiopathic thrombocytopenic purpura) CULTURE URINE STAT 12/23/2012 10:37 PM RN NIGHT URINALYSIS REFLEX TO MICROSCOPIC NO CULTURE STAT 12/23/2012 10:37 PM RN NIGHT DIFFERENTIAL MANUAL Routine 12/23/2012 10:25 PM RN NIGHT CBC W AUTO DIFFERENTIAL STAT 12/23/2012 10:25 PM RN NIGHT PREPARE PLATELET PHERESIS UNIT(S) Routine 12/23/2012 10:24 PM RN NIGHT PREPARE PLATELET PHERESIS UNIT(S) STAT 12/23/2012 10:24 PM RN NIGHT PT PTT PANEL STAT 12/23/2012 10:23 PM RN NIGHT BASIC METABOLIC PANEL (CALCIUM TOTAL) STAT 12/23/2012 7:43 PM RN NIGHT SPLENECTOMY 12/23/2012 3:30 PM RN NIGHT Primary thrombocytopenia, unspecified (HCC) Special Needs 5 day hospital stayLong term CG [id number] lap instruments LAPAROSCOPIC SPLENECTOMY 12/23/2012 3:30 PM RN NIGHT Primary thrombocytopenia, unspecified (HCC) Special Needs 5 day hospital stayLong term CG [id number] lap instruments DIFFERENTIAL MANUAL Routine 12/23/2012 2:54 PM RN NIGHT CBC W AUTO DIFFERENTIAL ZAHRA 12/23/2012 2:54 PM RN NIGHT CROSSMATCH RBC LEUKOREDUCED Routine 12/23/2012 2:09 PM RN NIGHT CULTURE MRSA Routine 12/23/2012 2:08 PM RN NIGHT CROSSMATCH RBC LEUKOREDUCED Routine 12/23/2012 1:02 PM RN NIGHT CROSSMATCH RBC LEUKOREDUCED Routine 12/23/2012 1:02 PM RN NIGHT CROSSMATCH RBC LEUKOREDUCED Routine 12/23/2012 1:02 PM RN NIGHT BLOOD GASES NATHAN + LYTES GLUC CA+ HH (ISTAT) Routine 12/23/2012 11:50 AM RN NIGHT PATHOLOGY TISSUE EXAM (STL) STAT 12/23/2012 10:41 AM RN NIGHT Hypogammaglobulinemia (HCC) ITP (idiopathic thrombocytopenic purpura) Neutropenia associated with autoimmune disease (HCC) Cellulitis and abscess of face Lymphadenopathy History of liver transplant (HCC) Autoimmune hepatitis (HCC) CBC W AUTO DIFFERENTIAL STAT 12/23/2012 6:53 AM RN NIGHT Hypogammaglobulinemia (HCC) CROSSMATCH RBC LEUKOREDUCED STAT 12/23/2012 6:53 AM RN NIGHT CROSSMATCH RBC LEUKOREDUCED Routine 12/23/2012 6:53 AM RN NIGHT CROSSMATCH RBC LEUKOREDUCED Routine 12/23/2012 6:53 AM RN NIGHT CROSSMATCH RBC LEUKOREDUCED Routine 12/23/2012 6:53 AM RN NIGHT BLOOD TYPE ABO+ RH PANEL Routine 12/23/2012 6:53 AM RN NIGHT ANTIBODY SCREEN Routine 12/23/2012 6:53 AM RN NIGHT documented in this encounter Results * LIPASE FLUID (01/02/2013 8:35 AM RN NIGHT) Lipase Fluid 80 U/L 01/02/2013 9:37 AM RN NIGHT [facility] Fluid Type Peritoneal 01/02/2013 9:37 AM [facility] Fluid specimen (specimen) PERITONEAL FLUID / Unknown 01/02/2013 8:35 AM RN NIGHT 01/02/2013 8:40 AM RN NIGHT Narrative [facility] - 01/02/2013 9:37 AM RN NIGHT Fluid Disclaimer No reference ranges are available for this specimen type, results may be inaccurate, assay designed for serum/plasma or urine. Assay was performed at client? s request on a suboptimal specimen type. Test results should be interpreted with caution. Omar Moreland MD LAB - BODY FLUID ORD ERABLES [facility] [address] [place] [address] * AMYLASE FLUID (01/02/2013 8:35 AM RN NIGHT) Amylase Fluid 41 U/L 01/02/2013 9:36 AM RN NIGHT [facility] Fluid specimen (specimen) PERITONEAL FLUID / Unknown 01/02/2013 8:35 AM RN NIGHT 01/02/2013 8:40 AM RN NIGHT Narrative [facility] - 01/02/2013 9:36 AM [facility] Fluid Disclaimer No reference ranges are available for this specimen type, results may be inaccurate, assay designed for serum/plasma or urine. Assay was performed at client? s request on a suboptimal specimen type. Test results should be interpreted with caution. Omar Moreland MD LAB - BODY FLUID ORD ERABLES Performing Organization Address City/[facility] Co de Phone Number [facility] [address] [place] [address] * LIPASE BLOOD (01/02/2013 8:17 AM RN NIGHT) Lipase 48 10 - 220 U/L 01/02/2013 9:26 AM [facility] Blood specimen (specimen) BLOOD SPECIMEN / Unknown 01/02/2013 8:17 AM [facility] 01/02/2013 8:36 AM RN NIGHT Omar Moreland MD LAB - CHEMISTRY ORDE RABJIM Performing Organization Address [facility] Co de Phone Number [facility] [address] [place] [address] * AMYLASE BLOOD (01/02/2013 8:17 AM RN NIGHT) Amylase 56 25 - 125 U/L 01/02/2013 9:26 AM [facility] Blood specimen (specimen) BLOOD SPECIMEN / Unknown 01/02/2013 8:17 AM RN NIGHT 01/02/2013 8:36 AM RN NIGHT Omar Moreland MD LAB - CHEMISTRY ORDE RABLES Performing Organization Address [facility] Co de Phone Number [facility] [address] [place] [phone] * TACROLIMUS LEVEL (01/02/2013 8:17 AM RN NIGHT) Tacrolimus 3.6 2.0 - 15.0 ng/mL 01/02/2013 11:50 AM [facility] Blood specimen (specimen) BLOOD SPECIMEN / Unknown 01/02/2013 8:17 AM RN NIGHT 01/02/2013 8:36 AM RN NIGHT Narrative [facility] - 01/02/2013 11:50 AM RN NIGHT Tacrolimus Information: Nephrology and Cardiology: 3.0-12.0 ng/mL ?GI: 2.0-15.0 ng/mL Omar Moreland MD LAB - THERAPEUTIC DR MCCLELLAN MONITORING ORDERABLES [facility] [address] [facility] [place] [address] * US ABDOMEN LIMITED (01/02/2013 8:10 AM RN NIGHT) Anatomical Region Laterality Modality Abdomen Ultrasound 01/02/2013 8:18 AM RN NIGHT Impressions 01/02/2013 8:18 AM RN NIGHT No evidence of significant left flank fluid with a drain in place as described above. Narrative 01/02/2013 8:18 AM RN NIGHT Survey sonogram of the abdomen dated Jan 02, 2013 08:10:39 AM. History: Status post splenectomy. Evaluate for fluid around drain in left flank. Multiple real-time sonographic images are obtained. Drain is seen in the imaging bad, though no free peritoneal or retroperitoneal is fluid is seen along the left flank. The visualized urinary bladder, liver, and kidney appear grossly unremarkable. Procedure Note Joshua Scott - 01/02/2013 Survey sonogram of the abdomen dated Jan 02, 2013 08:10:39 AM. History: Status post splenectomy. Evaluate for fluid around drain in left flank. Multiple real-time sonographic images are obtained. Drain is seen in the imaging bad, though no free peritoneal or retroperitoneal is fluid is seen along the left flank. The visualized urinary bladder, liver, and kidney appear grossly unremarkable. IMPRESSION No evidence of significant left flank fluid with a drain in place as described above. Omar Moreland MD ORDERABLES * PATHOLOGY/CYTOLOGY REPORT ORDER (12/30/2012 6:39 AM RN NIGHT) Narrative 12/30/2012 6:39 AM RN NIGHT Procedure Note Document, Scanned - 12/30/2012 6:39 AM CST Scanned Document LAB - PATHOLOGY/CYTO LOGY ORDERABLES * AMYLASE FLUID (12/28/2012 10:40 AM RN NIGHT) Amylase Fluid 56 U/L 12/28/2012 6:23 PM RN NIGHT [facility] Fluid Type 12/28/2012 6:23 PM [facility] Comment:tati drain fluid Fluid specimen (specimen) BODY FLUID SPECIMEN / Unknown 12/28/2012 10:40 AM RN NIGHT 12/28/2012 6:21 PM [facility] Narrative [facility] - 12/28/2012 6:23 PM RN NIGHT Fluid Disclaimer No reference ranges are available for this specimen type, results may be inaccurate, assay designed for serum/plasma or urine. Assay was performed at client? s request on a suboptimal specimen type. Test results should be interpreted with caution. Dannie Davila MD LAB - BODY FLUID ORD ERABLES Performing Organization Address [facility] Co de Phone Number [facility] [address] [place] [address] * LIPASE FLUID (12/28/2012 10:40 AM RN NIGHT) Lipase Fluid 137 U/L 12/28/2012 6:25 PM [facility] Fluid Type 12/28/2012 6:25 PM [facility] Comment:TATI drain fluid Fluid specimen (specimen) BODY FLUID SPECIMEN / Unknown 12/28/2012 10:40 AM RN NIGHT 12/28/2012 6:21 PM [facility] Narrative [facility] - 12/28/2012 6:25 PM [facility] Fluid Disclaimer No reference ranges are available for this specimen type, results may be inaccurate, assay designed for serum/plasma or urine. Assay was performed at client? s request on a suboptimal specimen type. Test results should be interpreted with caution. Dannie Davila MD LAB - BODY FLUID ORD ERABLES Performing Organization Address City/[facility] Co de Phone Number [facility] [address] [place] [address] * AMYLASE BLOOD (12/28/2012 8:47 AM RN NIGHT) Amylase 62 25 - 125 U/L 12/28/2012 10:06 AM [facility] Blood specimen (specimen) BLOOD SPECIMEN / Unknown 12/28/2012 8:47 AM RN NIGHT 12/28/2012 8:58 AM RN NIGHT Dannie Davila MD LAB - CHEMISTRY ORDKleber HERNÁNDEZ Performing Organization Address [facility] Co de Phone Number [facility] [address] [place] [address] * LIPASE BLOOD (12/28/2012 8:47 AM RN NIGHT) Lipase 47 10 - 220 U/L 12/28/2012 10:08 AM [facility] Blood specimen (specimen) BLOOD SPECIMEN / Unknown 12/28/2012 8:47 AM RN NIGHT 12/28/2012 8:58 AM RN NIGHT Dannie Davila MD LAB - CHEMISTRY MACIE HERNÁNDEZ Performing Organization Address [facility] Co de Phone Number [facility] [address] [place] [phone] * (ABNORMAL) HEPATIC FUNCTION PANEL (12/28/2012 5:32 AM RN NIGHT) Alkaline Phosphatase 103 39 - 139 U/L 12/28/2012 6:26 AM [facility] ALT 45 6 - 46 U/L 12/28/2012 6:26 AM [facility] AST 52(H) 8 - 42 U/L 12/28/2012 6:26 AM [facility] Protein Total 7.4 6.3 - 8.2 gm/dL 12/28/2012 6:26 AM [facility] Albumin 3.3 3.3 - 4.9 gm/dL 12/28/2012 6:26 AM [facility] Bilirubin Total 0.3 0.3 - 1.2 mg/dL 12/28/2012 6:26 AM [facility] Bilirubin Direct 0.10(L) 0.11 - 0.64 mg/dL 12/28/2012 6:26 AM [facility] Blood specimen (specimen) BLOOD SPECIMEN / Unknown 12/28/2012 5:32 AM RN NIGHT 12/28/2012 5:43 AM RN NIGHT Kay Marc MD LAB - CHEMISTR Y ORDERABLES Performing Organization Address [facility] Co de Phone Number [facility] [address] [place] [phone] * LIPASE BLOOD (12/28/2012 5:32 AM RN NIGHT) Lipase 55 10 - 220 U/L 12/28/2012 6:24 AM RN NIGHT [facility] Blood specimen (specimen) BLOOD SPECIMEN / Unknown 12/28/2012 5:32 AM RN NIGHT 12/28/2012 5:43 AM RN NIGHT Dannie Davila MD LAB - CHEMISTRY MACIE HERNÁNDEZ Performing Organization Address [facility] de Phone Number [facility] [address] [place] [phone] * (ABNORMAL) AMYLASE BLOOD (12/28/2012 5:32 AM RN NIGHT) Amylase 157(H) 25 - 125 U/L 12/28/2012 6:26 AM RN NIGHT [facility] Comment:~moderately hemolyze d Blood specimen (specimen) BLOOD SPECIMEN / Unknown 12/28/2012 5:32 AM RN NIGHT 12/28/2012 5:43 AM RN NIGHT Dannie Davila MD LAB - CHEMISTRY MACIE HERNÁNDEZ Performing Organization Address [facility] de Phone Number [facility] [address] [place] [address] * LIPASE FLUID (12/28/2012 4:29 AM RN NIGHT) Lipase Fluid 158 U/L 12/28/2012 5:27 AM [facility] Fluid specimen (specimen) BODY FLUID SPECIMEN / Unknown 12/28/2012 4:29 AM RN NIGHT 12/28/2012 4:42 AM RN NIGHT Narrative [facility] - 12/28/2012 5:27 AM RN NIGHT Fluid Disclaimer No reference ranges are available for this specimen type, results may be inaccurate, assay designed for serum/plasma or urine. Assay was performed at client? s request on a suboptimal specimen type. Test results should be interpreted with caution. Dannie Davila MD LAB - BODY FLUID ORD ERABLES Performing Organization Address [facility]/ZIP Co de Phone Number [facility] [address] [place] [address] * AMYLASE FLUID (12/28/2012 4:29 AM [facility]) Pathologist [facility] Amylase Fluid 59 U/L 12/28/2012 5:27 AM [facility] Fluid specimen (specimen) BODY FLUID SPECIMEN / Unknown 12/28/2012 4:29 AM [facility] 12/28/2012 4:42 AM [facility] Narrative [facility] - 12/28/2012 5:27 AM [facility] Fluid Disclaimer No reference ranges are available for this specimen type, results may be inaccurate, assay designed for serum/plasma or urine. Assay was performed at client? s request on a suboptimal specimen type. Test results should be interpreted with caution. Dannie Davila MD LAB - BODY FLUID ORD ERABLES Performing Organization Address [facility] Co de Phone Number [facility] [address] [phone] * (ABNORMAL) HEPATIC FUNCTION PANEL (12/27/2012 7:05 AM [facility]) Pathologist [facility] Alkaline Phosphatase 109 39 - 139 U/L 12/27/2012 8:03 AM [facility] ALT 59(H) 6 - 46 U/L 12/27/2012 8:03 AM [facility] AST 48(H) 8 - 42 U/L 12/27/2012 8:03 AM [facility] Protein Total 6.4 6.3 - 8.2 gm/dL 12/27/2012 8:03 AM [facility] Albumin 3.3 3.3 - 4.9 gm/dL 12/27/2012 8:03 AM [facility] Bilirubin Total 0.4 0.3 - 1.2 mg/dL 12/27/2012 8:03 AM [facility] Bilirubin Direct 0.23 0.11 - 0.64 mg/dL 12/27/2012 8:03 AM [facility] Blood specimen (specimen) BLOOD SPECIMEN / Unknown 12/27/2012 7:05 AM [facility] 12/27/2012 7:14 AM [facility] Kay Marc MD LAB - CHEMISTR Y ORDERABLES [facility] [address] [facility] [place] [address] * (ABNORMAL) NADINE-BAR VIRUS PCR QUANTITATIVE BLOOD (12/27/2012 7:05 AM [facility]) Nadine-Borrego Virus DNA PCR Quantitative POSITIVE for EBV DNA but below level of accurate quantitatio n(A) No EBV DNA detected 12/28/2012 7:38 AM [facility] Nadine-Borrego DNA Number copies/mL 2,721 copies/mL 12/28/2012 7:38 AM [facility] Nadine-Borrego RAGHAV Quant log 10 copies/mL 3.43 log 10 copies/mL 12/28/2012 7:38 AM [facility] Blood specimen (specimen) BLOOD SPECIMEN / Unknown 12/27/2012 7:05 AM [facility] 12/27/2012 7:13 AM RN NIGHT Narrative [facility] - 12/28/2012 7:38 AM [facility] This assay has a lower limit of [...] ??EBV levels can vary by ??specimen type: [facility] uses whole blood which is more [...] specimen. Felipe Mon MD LAB - MICROBIOLOGY O RDERABLES Performing Organization Address [facility] de Phone Number [facility] [address] [place] [address] * TACROLIMUS LEVEL (12/27/2012 7:05 AM [facility]) [facility] Tacrolimus 11.3 2.0 - 15.0 ng/mL 12/27/2012 12:41 PM [facility] Blood specimen (specimen) BLOOD SPECIMEN / Unknown 12/27/2012 7:05 AM RN NIGHT 12/27/2012 7:14 AM [facility] Narrative [facility] - 12/27/2012 12:41 PM [facility] Tacrolimus Information: Nephrology and Cardiology: 3.0-12.0 ng/mL ?GI: 2.0-15.0 ng/mL Felipe Mon MD LAB - THERAPEUTIC DR MCCLELLAN MONITORING ORDERABLES Performing Organization Address [facility] de Phone Number [facility] [address] [place], [place] [phone] * CROSSMATCH RBC (12/27/2012 12:12 AM [facility]) [facility] Unit Donor # [id number] -O 12/27/2012 12:12 AM [facility] Product Code E0420 12/27/2012 12:12 AM [facility] Unit Description E0420 RBC, IRR, LR, -5 12/27/2012 12:12 AM [facility] ABO Donor Type A 12/27/2012 12:12 AM [facility] Rh Type Unit POS 12/27/2012 12:12 AM [facility] Crossmatch Interpretation Compatible 12/27/2012 12:12 AM [facility] Unit Status Returned 12/27/2012 12:12 AM [facility] Miscellaneous samples (specimen) BLOOD SPECIMEN / Unknown 12/23/2012 12:55 PM RN NIGHT Gregory Fung MD LAB - BLOOD BANK OR DERABLES Performing Organization Address [facility] Co de Phone Number [facility] * CROSSMATCH RBC (12/27/2012 12:12 AM RN NIGHT) [facility] Donor # [id number] -M 12/27/2012 12:12 AM [facility] Product Code E0420 12/27/2012 12:12 AM [facility] Unit Description E0420 RBC, IRR, LR, -5 12/27/2012 12:12 AM [facility] ABO Donor Type A 12/27/2012 12:12 AM [facility] Rh Type Unit POS 12/27/2012 12:12 AM [facility] Crossmatch Interpretation Compatible 12/27/2012 12:12 AM [facility] Unit Status Returned 12/27/2012 12:12 AM [facility] Miscellaneous samples (specimen) BLOOD SPECIMEN / Unknown 12/23/2012 11:51 AM RN NIGHT Gregory Fung MD LAB - BLOOD BANK OR DERABLES Performing Organization Address City/[facility] Co de Phone Number [facility] * US LIVER W DOPPLER PORTAL VEIN (12/26/2012 10:15 AM RN NIGHT) Anatomical Region Laterality Modality Ultrasound 12/26/2012 10:4 3 AM RN NIGHT Impressions 12/26/2012 10:43 AM RN NIGHT Patent portal vein with appropriate directional flow. Narrative 12/26/2012 10:43 AM RN NIGHT Ultrasound of the liver with Doppler performed [...] with appropriate directional flow. Kay Marc MD US ORDERABLES * (ABNORMAL) HEPATIC FUNCTION PANEL (12/26/2012 4:26 AM RN NIGHT) Alkaline Phosphatase 100 39 - 139 U/L 12/26/2012 5:06 AM [facility] ALT 84(H) 6 - 46 U/L 12/26/2012 5:06 AM [facility] AST 73(H) 8 - 42 U/L 12/26/2012 5:06 AM [facility] Protein Total 6.4 6.3 - 8.2 gm/dL 12/26/2012 5:06 AM [facility] Albumin 3.3 3.3 - 4.9 gm/dL 12/26/2012 5:06 AM [facility] Bilirubin Total 0.5 0.3 - 1.2 mg/dL 12/26/2012 5:06 AM [facility] Bilirubin Direct 0.24 0.11 - 0.64 mg/dL 12/26/2012 5:06 AM [facility] Blood specimen (specimen) BLOOD SPECIMEN / Unknown 12/26/2012 4:26 AM RN NIGHT 12/26/2012 4:40 AM RN NIGHT Kay Marc MD LAB - CHEMISTR Y ORDERABLES Performing Organization Address [facility] Co de Phone Number [facility] [address] [place] [phone] * CMV DNA REAL-TIME PCR QUANTITATIVE (12/26/2012 4:26 AM [facility]) [facility] Cytomegalovirus DNA Quantitative PCR copies/ml No Cytomegalovirus DNA detected by PCR No Cytomegalovirus DNA detected by PCR 3 7:21 AM [facility] Blood specimen (specimen) BLOOD SPECIMEN / Unknown 12/26/2012 4:26 AM RN NIGHT 12/26/2012 4:40 AM RN NIGHT Kay Marc MD LAB - MICROBIO LOGY ORDERABLES Performing Organization Address [facility] de Phone Number [facility] [address] [place] [phone] * (ABNORMAL) HEPATIC FUNCTION PANEL (12/25/2012 2:29 PM RN NIGHT) [facility] Alkaline Phosphatase 80 39 - 139 U/L 12/25/2012 3:18 PM [facility] ALT 95(H) 6 - 46 U/L 12/25/2012 3:18 PM [facility] AST 88(H) 8 - 42 U/L 12/25/2012 3:18 PM [facility] Protein Total 5.8(L) 6.3 - 8.2 gm/dL 12/25/2012 3:18 PM [facility] Albumin 2.9(L) 3.3 - 4.9 gm/dL 12/25/2012 3:18 PM RN NIGHT [facility] Bilirubin Total 0.6 0.3 - 1.2 mg/dL 12/25/2012 3:18 PM RN NIGHT [facility] Bilirubin Direct 0.31 0.11 - 0.64 mg/dL 12/25/2012 3:18 PM RN NIGHT [facility] Blood specimen (specimen) BLOOD SPECIMEN / Unknown 12/25/2012 2:29 PM RN NIGHT 12/25/2012 2:45 PM RN NIGHT Kay Marc MD LAB - CHEMISTR Y ORDERABLES Performing Organization Address City/State/[facility] Co de Phone Number [facility] [address] [facility] [place] [address] * (ABNORMAL) [id number] ANTIBODY IGG (12/25/2012 2:29 PM RN NIGHT) Herpesvirus 6 Antibody IgG 5.93(H) <=0.89 IV 12/27/2012 6:30 PM RN NIGHT [employer] Comment: INTERPRETIVE INFORMATION: Herpesvirus 6 (HHV-6) Ab, [...] developed and its performance characteristics determined by [employer]. The U.[place]. Food and Drug Administration has not approved or cleared this test; however, FDA clearance or approval is not currently required for clinical use. The results are not intended to be used as the sole means for clinical diagnosis or patient management decisions. Blood specimen (specimen) BLOOD SPECIMEN / Unknown 12/25/2012 2:29 PM RN NIGHT 12/25/2012 2:45 PM RN NIGHT Kay Marc MD LAB - SEROLOGY ORDERABLES Performing Organization Address City/[facility] [place] Co de Phone Number [facility] [employer] [address] [place] [address] * (ABNORMAL) CMV ANTIBODY IGG IGM BLOOD PANEL (12/25/2012 2:29 PM RN NIGHT) [facility] Cytomegalovirus Antibody IgG 4.6(H) <0.9 12/28/2012 3:03 PM RN NIGHT [facility] Cytomegalovirus Antibody IgM 0.3 <0.9 12/28/2012 3:03 PM RN NIGHT [facility] Blood specimen (specimen) BLOOD SPECIMEN / Unknown 12/25/2012 2:29 PM RN NIGHT 12/25/2012 2:45 PM RN NIGHT Narrative [facility] - 12/28/2012 3:03 PM RN NIGHT ? <0.9 Negative ??0.9 - 1.0 Equivocal ?>=1.1 Positive Kay Marc MD LAB - CHEMISTR Y ORDERABLES Performing Organization Address [facility] Co de Phone Number [facility] [address] [place] [address] * LIPASE BLOOD (12/25/2012 11:05 AM RN NIGHT) Pathologist [facility] Lipase 22 10 - 220 U/L 12/25/2012 11:53 AM RN NIGHT [facility] Blood specimen (specimen) BLOOD SPECIMEN / Unknown 12/25/2012 11:05 AM RN NIGHT 12/25/2012 11:07 AM RN NIGHT Dannie Davila MD LAB - CHEMISTRY MACIE HERNÁNDEZ Performing Organization Address City/[facility] Co de Phone Number [facility] [address] [place] [address] * AMYLASE BLOOD (12/25/2012 11:05 AM RN NIGHT) Amylase 35 25 - 125 U/L 12/25/2012 11:53 AM [facility] Blood specimen (specimen) BLOOD SPECIMEN / Unknown 12/25/2012 11:05 AM RN NIGHT 12/25/2012 11:07 AM RN NIGHT Dannie Davila MD LAB - CHEMISTRY ORDE RABLES Performing Organization Address [facility]/ZIP Co de Phone Number [facility] [address] [place] [address] * LIPASE FLUID (12/25/2012 10:33 AM RN NIGHT) Lipase Fluid 747 U/L 12/25/2012 11:52 AM [facility] Fluid specimen (specimen) BODY FLUID SPECIMEN / Unknown 12/25/2012 10:33 AM RN NIGHT 12/25/2012 11:07 AM [facility] Narrative [facility] - 12/25/2012 11:52 AM [facility] Fluid Disclaimer No reference ranges are available for this specimen type, results may be inaccurate, assay designed for serum/plasma or urine. Assay was performed at client? s request on a suboptimal specimen type. Test results should be interpreted with caution. Dannie Davila MD LAB - BODY FLUID ORD ERABLES Performing Organization Address [facility] Co de Phone Number [facility] [address] [place] [address] * AMYLASE FLUID (12/25/2012 10:33 AM RN NIGHT) Amylase Fluid 132 U/L 12/25/2012 11:52 AM [facility] Fluid specimen (specimen) BODY FLUID SPECIMEN / Unknown 12/25/2012 10:33 AM RN NIGHT 12/25/2012 11:07 AM [facility] Narrative [facility] - 12/25/2012 11:52 AM [facility] Fluid Disclaimer No reference ranges are available for this specimen type, results may be inaccurate, assay designed for serum/plasma or urine. Assay was performed at client? s request on a suboptimal specimen type. Test results should be interpreted with caution. Dannie Davila MD LAB - BODY FLUID ORD ERABLES [facility] [address] [place] [address] * (ABNORMAL) CBC W/O DIFFERENTIAL (12/25/2012 5:36 AM RN NIGHT) WBC 19.9(H) 4.4 - 10.7 x10^9/L 12/25/2012 6:06 AM [facility] RBC 3.62(L) 3.80 - 5.40 x10^12/L 12/25/2012 6:06 AM [facility] Hemoglobin 11.0(L) 12.0 - 17.6 g/dL 12/25/2012 6:06 AM [facility] Hematocrit 31.2(L) 35.2 - 51.7 % 12/25/2012 6:06 AM [facility] MCV 86.2 80.7 - 98.3 fl 12/25/2012 6:06 AM [facility] MCH 30.4 26.7 - 34.0 pg 12/25/2012 6:06 AM [facility] MCHC 35.3 30.8 - 35.9 gm/dL 12/25/2012 6:06 AM [facility] Platelet Count 283 153 - 416 x10^9/L 12/25/2012 6:06 AM [facility] RDW-CV 15.1(H) 12.1 - 14.9 % 12/25/2012 6:06 AM [facility] MPV 10.3 9.4 - 12.9 fl 12/25/2012 6:06 AM [facility] Blood specimen (specimen) BLOOD SPECIMEN / Unknown 12/25/2012 5:36 AM RN NIGHT 12/25/2012 5:46 AM [facility] Adriane Smith MD LAB - HEMATOLOGY O RDERABLES [facility] [address] [place] [address] * TACROLIMUS LEVEL (12/25/2012 5:36 AM RN NIGHT) Tacrolimus 7.7 ng/mL 12/25/2012 12:25 PM [facility] Blood specimen (specimen) BLOOD SPECIMEN / Unknown 12/25/2012 5:36 AM RN NIGHT 12/25/2012 5:46 AM [facility] Narrative [facility] - 12/25/2012 12:25 PM [facility] Tacrolimus Information: Nephrology and Cardiology: 3.0-12.0 ng/mL ?GI: 2.0-15.0 ng/mL Dannie Davila MD LAB - THERAPEUTIC DR MCCLELLAN MONITORING ORDERABLES Performing Organization Address [facility] Co de Phone Number [facility] [address] [place] [address] * (ABNORMAL) HEPATIC FUNCTION PANEL (12/24/2012 9:08 AM [facility]) Alkaline Phosphatase 93 39 - 139 U/L 12/24/2012 10:00 AM [facility] ALT 151(H) 6 - 46 U/L 12/24/2012 10:00 AM [facility] AST 185(H) 8 - 42 U/L 12/24/2012 10:00 AM [facility] Protein Total 5.7(L) 6.3 - 8.2 gm/dL 12/24/2012 10:00 AM [facility] Albumin 3.0(L) 3.3 - 4.9 gm/dL 12/24/2012 10:00 AM [facility] Bilirubin Total 0.6 0.3 - 1.2 mg/dL 12/24/2012 10:00 AM [facility] Bilirubin Direct 0.38 0.11 - 0.64 mg/dL 12/24/2012 10:00 AM [facility] Blood specimen (specimen) BLOOD SPECIMEN / Unknown 12/24/2012 9:08 AM RN NIGHT 12/24/2012 9:34 AM [facility] Dannie Davila MD LAB - CHEMISTRY MACIE HERNÁNDEZ Performing Organization Address [facility] Co de Phone Number [facility] [address] [place] [address] * CULTURE BLOOD (12/24/2012 8:30 AM RN NIGHT) Culture SEE BELOW 12/30/2012 6:35 AM RN NIGHT [facility] INTER[employer] Comment: - Final - No growth Blood specimen (specimen) PERIPHERAL BLOOD / Unknown 12/24/2012 8:30 AM RN NIGHT 12/24/2012 9:41 AM RN NIGHT Robert Cameron MD LAB - MICROBIOLOGY O SARAH Performing Organization Address City/[facility]/ZIP Co de Phone Number [facility] [employer] [address] [place] [address], [facility] * CULTURE BLOOD (12/24/2012 8:29 AM RN NIGHT) Culture SEE BELOW 12/30/2012 6:35 AM RN NIGHT [facility] [employer] Comment: - Final - No growth Blood specimen (specimen) PERIPHERAL BLOOD / Unknown 12/24/2012 8:29 AM RN NIGHT 12/24/2012 9:40 AM RN NIGHT Robert Cameron MD LAB - MICROBIOLOGY O SARAH Performing Organization Address City/[facility] Co de Phone Number [facility] [employer] [address] [place] [address], [facility] * (ABNORMAL) DIFFERENTIAL MANUAL (12/24/2012 5:36 AM RN NIGHT) WBC Auto 20.4(H) 4.4 - 10.7 X(10)9/L 12/24/2012 6:21 AM [facility] Neutrophil % Manual 84(H) 44 - 73 % 12/24/2012 6:21 AM [facility] Lymphocytes % Manual 5(L) 20 - 43 % 12/24/2012 6:21 AM [facility] Monocytes % Manual 9 5 - 13 % 2012 6:21 AM [facility] Band % Manual 2 0 - 11 % 12/24/2012 6:21 AM [facility] Cells Counted 100 # cells 12/24/2012 6:21 AM [facility] Platelet Estimation Normal 12/24/2012 6:21 AM [facility] Anisocytosis Slight 12/24/2012 6:21 AM [facility] Poikilocytosis Slight 12/24/2012 6:21 AM [facility] Toxic Granulation 1+ 013 6:21 AM [facility] Blood specimen (specimen) BLOOD SPECIMEN / Unknown 12/24/2012 5:36 AM [facility] 12/24/2012 5:37 AM [facility] Robert Cameron MD LAB - HEMATOLOGY ORD ERABLES Performing Organization Address City/State/[facility] Co de Phone Number [facility] [place] [address] * (ABNORMAL) CBC W AUTO DIFFERENTIAL (12/24/2012 5:36 AM [facility]) WBC 20.4(H) 4.4 - 10.7 x10^9/L 12/24/2012 6:21 AM [facility] RBC 3.64(L) 3.80 - 5.40 x10^12/L 12/24/2012 6:21 AM [facility] Hemoglobin 11.2(L) 12.0 - 17.6 g/dL 12/24/2012 6:21 AM [facility] Hematocrit 31.4(L) 35.2 - 51.7 % 12/24/2012 6:21 AM [facility] MCV 86.3 80.7 - 98.3 fl 12/24/2012 6:21 AM [facility] MCH 30.8 26.7 - 34.0 pg 12/24/2012 6:21 AM [facility] MCHC 35.7 30.8 - 35.9 gm/dL 12/24/2012 6:21 AM [facility] RDW-CV 15.7(H) 12.1 - 14.9 % 12/24/2012 6:21 AM [facility] MPV 9.8 9.4 - 12.9 fl 12/24/2012 6:21 AM [facility] Hematology Reflex Status Manual Diff to follow (none) 12/24/2012 6:21 AM [facility] Platelet Count 256 153 - 416 x10^9/L 12/24/2012 6:21 AM [facility] Blood specimen (specimen) BLOOD SPECIMEN / Unknown 12/24/2012 5:36 AM RN NIGHT 12/24/2012 5:37 AM RN NIGHT Robert Cameron MD LAB - HEMATOLOGY ORD ERABLES Performing Organization Address [facility]/ZIP Co de Phone Number [facility] [address] [place] [address] * (ABNORMAL) GLUCOSE - POINT OF CARE (12/24/2012 5:32 AM RN NIGHT) Glucose WB/POC 119(H) 70 - 106 mg/dL 12/24/2012 5:34 AM RN NIGHT [facility] Blood specimen (specimen) BLOOD SPECIMEN / Unknown 12/24/2012 5:32 AM RN NIGHT 12/24/2012 5:34 AM RN NIGHT Gregory Fung MD LAB - POINT OF CARE ORDERABLES Performing Organization Address [facility] Co de Phone Number [facility] [address] [place] [address] * XR PORTABLE CHEST XRAY (12/23/2012 11:29 PM RN NIGHT) Anatomical Region Laterality Modality Chest Radiographic Shilpi ging 12/24/2012 10:2 6 AM RN NIGHT Impressions 12/24/2012 10:26 AM RN NIGHT Postoperative changes as above. Narrative 12/24/2012 10:26 AM RN NIGHT Portable chest x-ray performed 12/23/2012 at 2323. [...] ORDERABLES * CULTURE URINE (12/23/2012 10:37 PM RN NIGHT) Pathologist [facility] Culture SEE BELOW 12/26/2012 8:34 AM RN NIGHT [facility] [employer] INTER[employer]ACES Comment: - Final - CULTURE No Growth (<100 CFU/mL) Urine specimen (specimen) URINE SPECIMEN COLLECTION, CATHETERIZED / Unknown 12/23/2012 10:37 PM RN NIGHT 12/23/2012 10:46 PM RN NIGHT Adriane Smith MD LAB - MICROBIOLOGY ORDERABLES [facility] [employer] LT INTERFACES [address] [place] [address], [facility] * URINALYSIS ROUTINE AUTO (12/23/2012 10:37 PM RN NIGHT) Color UA Yellow Straw, Yellow, Dark Yellow 12/23/2012 11:01 PM [facility] Clarity UA Clear (none) 12/23/2012 11:01 PM [facility] Specific [place] UA 1.019 1.005 - 1.030 12/23/2012 11:01 PM [facility] pH UA 5.5 5.0 - 8.0 12/23/2012 11:01 PM [facility] Protein UA Negative Negative 12/23/2012 11:01 PM [facility] Blood UA Negative Negative 12/23/2012 11:01 PM [facility] Leukocyte UA Negative Negative 12/23/2012 11:01 PM [facility] Nitrite UA Negative Negative 12/23/2012 11:01 PM [facility] Glucose UA Negative Negative 12/23/2012 11:01 PM [facility] Ketone UA Negative Negative 12/23/2012 11:01 PM [facility] Bilirubin UA Negative Negative 12/23/2012 11:01 PM [facility] Urobilinogen UA 0.2 0.1 - 1.0 EU/dL 12/23/2012 11:01 PM [facility] WBC UA Auto 0-2 0-2, 2-5 #/hpf 12/23/2012 11:01 PM [facility] RBC UA Auto 0-2 0-2, 2-5 #/hpf 12/23/2012 11:01 PM [facility] Epithelial Cell UA Auto 0-2 0-2, 2-5 #/hpf 12/23/2012 11:01 PM [facility] Hyaline Casts UA Auto 0-2 None seen, 0-2 #/lpf 12/23/2012 11:01 PM [facility] Urine specimen (specimen) URINE / Unknown 12/23/2012 10:37 PM RN NIGHT 12/23/2012 10:46 PM [facility] Adriane Smith MD LAB - URINALYSIS O RDERABLES Performing Organization Address City/State/[facility] Co de Phone Number [facility] [address] [place] [address] * (ABNORMAL) DIFFERENTIAL MANUAL (12/23/2012 10:25 PM [facility]) WBC Auto 21.4(H) 4.4 - 10.7 X(10)9/L 12/23/2012 11:08 PM [facility] Neutrophil % Manual 77(H) 44 - 73 % 12/23/2012 11:08 PM [facility] Lymphocytes % Manual 8(L) 20 - 43 % 12/23/2012 11:08 PM [facility] Monocytes % Manual 8 5 - 13 % 2012 11:08 PM [facility] Band % Manual 7 0 - 11 % 12/23/2012 11:08 PM [facility] Cells Counted 100 # cells 12/23/2012 11:08 PM [facility] Platelet Estimation Normal 12/23/2012 11:08 PM [facility] Anisocytosis Slight 12/23/2012 11:08 PM [facility] Poikilocytosis Slight 12/23/2012 11:08 PM [facility] Toxic Granulation 1+ 013 11:08 PM [facility] Blood specimen (specimen) BLOOD SPECIMEN / Unknown 12/23/2012 10:25 PM [facility] 12/23/2012 10:30 PM [facility] Adriane Smith MD LAB - HEMATOLOGY O RDERABLES Performing Organization Address City/State/[facility] de Phone Number [facility] [place] [address] * (ABNORMAL) CBC W AUTO DIFFERENTIAL (12/23/2012 10:25 PM [facility]) WBC 21.4(H) 4.4 - 10.7 x10^9/L 12/23/2012 10:38 PM [facility] RBC 3.87 3.80 - 5.40 x10^12/L 12/23/2012 10:38 PM [facility] Hemoglobin 11.8(L) 12.0 - 17.6 g/dL 12/23/2012 10:38 PM [facility] Hematocrit 33.1(L) 35.2 - 51.7 % 12/23/2012 10:38 PM [facility] MCV 85.5 80.7 - 98.3 fl 12/23/2012 10:38 PM [facility] MCH 30.5 26.7 - 34.0 pg 12/23/2012 10:38 PM [facility] MCHC 35.6 30.8 - 35.9 gm/dL 12/23/2012 10:38 PM [facility] RDW-CV 15.5(H) 12.1 - 14.9 % 12/23/2012 10:38 PM [facility] MPV 10.0 9.4 - 12.9 fl 12/23/2012 10:38 PM [facility] Hematology Reflex Status Manual Diff to follow (none) 12/23/2012 10:38 PM [facility] Platelet Count 247 153 - 416 x10^9/L 12/23/2012 10:38 PM [facility] Blood specimen (specimen) BLOOD SPECIMEN / Unknown 12/23/2012 10:25 PM RN NIGHT 12/23/2012 10:30 PM RN NIGHT Adriane Smith MD LAB - HEMATOLOGY O RDERABLES [facility] [address] [place] [address] * PREPARE PLATELET PHERESIS UNIT(S) (12/23/2012 10:24 PM RN NIGHT) Unit Donor # [id number] 12/23/2012 10:24 PM [facility] Product Code 77203 12/23/2012 10:24 PM [facility] ABO Donor Type A 12/23/2012 10:24 PM [facility] Rh Type Unit POS 12/23/2012 10:24 PM [facility] Unit Status Transfused Unit 12/23/2012 10:24 PM [facility] Unit Description [id number] PLT, IRR, LR, APH 12/23/2012 10:24 PM [facility] Miscellaneous samples (specimen) BLOOD SPECIMEN / Unknown 12/23/2012 10:09 AM RN NIGHT Gregory Fung MD LAB - BLOOD BANK OR DERABLES [facility] * PREPARE PLATELET PHERESIS UNIT(S) (12/23/2012 10:24 PM RN NIGHT) Unit Donor # [id number] 12/23/2012 10:24 PM [facility] Product Code [id number] 12/23/2012 10:24 PM [facility] ABO Donor Type A 12/23/2012 10:24 PM [facility] Rh Type Unit POS 12/23/2012 10:24 PM [facility] Unit Status Transfused Unit 12/23/2012 10:24 PM [facility] Unit Description [id number] PLT, IRR, LR, APH 12/23/2012 10:24 PM [facility] Miscellaneous samples (specimen) BLOOD SPECIMEN / Unknown 12/23/2012 7:39 AM RN NIGHT Gregory Fung MD LAB - BLOOD BANK OR DERABLES Performing Organization Address City/[facility]/ZIP Co de Phone Number [facility] * (ABNORMAL) PT PTT PANEL (12/23/2012 10:23 PM RN NIGHT) PT 14.0 12.2 - 14.5 sec 12/23/2012 10:53 PM [facility] INR 1.2 0.8 - 1.2 12/23/2012 10:53 PM [facility] PTT 24.1(L) 25.1 - 36.5 sec 12/23/2012 10:53 PM [facility] Blood specimen (specimen) BLOOD SPECIMEN / Unknown 12/23/2012 10:23 PM RN NIGHT 12/23/2012 10:28 PM RN NIGHT Adriane Smith MD LAB - COAGULATION ORDERABLES Performing Organization Address [facility] Co de Phone Number [facility] [address] [place] [address] * (ABNORMAL) BASIC METABOLIC PANEL (CALCIUM TOTAL) (12/23/2012 7:43 PM RN NIGHT) Glucose 184(H) 70 - 105 mg/dL 12/23/2012 8:12 PM [facility] Sodium 136 136 - 145 mmol/L 12/23/2012 8:12 PM [facility] Potassium 4.9 3.5 - 5.1 mmol/L 12/23/2012 8:12 PM [facility] Chloride 106 98 - 107 mmol/L 12/23/2012 8:12 PM [facility] CO2 22 22 - 29 mmol/L 12/23/2012 8:12 PM [facility] Calcium 7.97(L) 9.08 - 10.48 mg/dL 12/23/2012 8:12 PM [facility] Anion Gap 8 5 - 20 mmol/L 12/23/2012 8:12 PM [facility] BUN 9.7 5.3 - 18.7 mg/dL 12/23/2012 8:12 PM [facility] Creatinine 0.74 0.61 - 1.07 mg/dL 12/23/2012 8:12 PM [facility] eGFR by MDRD >60 >60 ml/min/1.7 3m2 12/23/2012 8:12 PM [facility] eGFR by MDRD >60 >60 ml/min/1.7 2 12/23/2012 8:12 PM [facility] Blood specimen (specimen) BLOOD SPECIMEN / Unknown 12/23/2012 7:43 PM RN NIGHT 12/23/2012 7:49 PM [facility] Adriane Smith MD LAB - CHEMISTRY OR DERABLES Performing Organization Address City/State/[facility] Co me Phone Number [facility] [address] [place] [address] * (ABNORMAL) DIFFERENTIAL MANUAL (12/23/2012 2:54 PM [facility]) WBC Auto 25.8(H) 4.4 - 10.7 X(10)9/L 12/23/2012 3:30 PM [facility] Neutrophil % Manual 81(H) 44 - 73 % 12/23/2012 3:30 PM [facility] Lymphocytes % Manual 4(L) 20 - 43 % 12/23/2012 3:30 PM [facility] Monocytes % Manual 12 5 - 13 % 12/23/2012 3:30 PM [facility] Band % Manual 3 0 - 11 % 12/23/2012 3:30 PM [facility] Cells Counted 100 # cells 12/23/2012 3:30 PM [facility] Platelet Estimation Adequate platelets 12/23/2012 3:30 PM [facility] WBC Morph Normal 12/23/2012 3:30 PM [facility] Anisocytosis Few 12/23/2012 3:30 PM [facility] Poikilocytosis Occasional 12/23/2012 3:30 PM [facility] Saida Cells Few 12/23/2012 3:30 PM [facility] Schistocytes Occasional 12/23/2012 3:30 PM [facility] Blood specimen (specimen) BLOOD SPECIMEN / Unknown 12/23/2012 2:54 PM RN NIGHT 12/23/2012 2:58 PM RN NIGHT Robert Cameron MD LAB - HEMATOLOGY ORD ERABLES Performing Organization Address City/[facility] de Phone Number [facility] [address] [place] [address] * (ABNORMAL) CBC W AUTO DIFFERENTIAL (12/23/2012 2:54 PM RN NIGHT) WBC 25.8(H) 4.4 - 10.7 x10^9/L 12/23/2012 3:15 PM [facility] RBC 4.17 3.80 - 5.40 x10^12/L 12/23/2012 3:15 PM [facility] Hemoglobin 12.8 12.0 - 17.6 g/dL 12/23/2012 3:15 PM [facility] Hematocrit 36.0 35.2 - 51.7 % 12/23/2012 3:15 PM [facility] MCV 86.3 80.7 - 98.3 fl 12/23/2012 3:15 PM [facility] MCH 30.7 26.7 - 34.0 pg 12/23/2012 3:15 PM [facility] MCHC 35.6 30.8 - 35.9 gm/dL 12/23/2012 3:15 PM [facility] RDW-CV 14.2 12.1 - 14.9 % 12/23/2012 3:15 PM [facility] MPV 10.0 9.4 - 12.9 fl 12/23/2012 3:15 PM [facility] Hematology Reflex Status Manual Diff to follow (none) 12/23/2012 3:15 PM [facility] Platelet Count 225 153 - 416 x10^9/L 12/23/2012 3:15 PM [facility] Blood specimen (specimen) BLOOD SPECIMEN / Unknown 12/23/2012 2:54 PM RN NIGHT 12/23/2012 2:58 PM RN NIGHT Robert Cameron MD LAB - HEMATOLOGY ORD ERABLES [facility] [address] [facility] [place] [address] * CROSSMATCH RBC (12/23/2012 2:09 PM RN NIGHT) Unit Donor # [id number] -[id number] 12/23/2012 2:09 PM RN NIGHT [facility] Product Code E0420 12/23/2012 2:09 PM RN NIGHT [facility] Unit Description E0420 RBC, IRR, LR, -5 12/23/2012 2:09 PM RN NIGHT [facility] ABO Donor Type O 12/23/2012 2:09 PM RN NIGHT [facility] Rh Type Unit NEG 12/23/2012 2:09 PM RN NIGHT [facility] Crossmatch Interpretation Compatible 12/23/2012 2:09 PM RN NIGHT [facility] Unit Status Returned 12/23/2012 2:09 PM RN NIGHT [facility] Miscellaneous samples (specimen) BLOOD SPECIMEN / Unknown 12/23/2012 11:51 AM RN NIGHT Gregory Fung MD LAB - BLOOD BANK OR DERABLES Performing Organization Address City/[facility]/ZIP Co de Phone Number [facility] * CULTURE MRSA (12/23/2012 2:08 PM RN NIGHT) Culture SEE BELOW 12/24/2012 8:18 PM RN NIGHT [facility] Comment: - Final - NO growth of Staphylococcus aureus (MRSA) Miscellaneous samples (specimen) SPECIMEN FROM NASAL FOSSAE / Unknown 12/23/2012 2:08 PM RN NIGHT 12/23/2012 2:14 PM RN NIGHT Robert Cameron MD LAB - MICROBIOLOGY O RDERABLES [facility] [address] [place] [address] ROLY Rivas [id number] * CROSSMATCH RBC (12/23/2012 1:02 PM RN NIGHT) Unit Donor # [id number] -[id number] 12/23/2012 1:02 PM RN NIGHT [facility] Product Code E0420 12/23/2012 1:02 PM [facility] Unit Description E0420 RBC, IRR, LR, -5 12/23/2012 1:02 PM [facility] ABO Donor Type A 12/23/2012 1:02 PM [facility] Rh Type Unit POS 12/23/2012 1:02 PM [facility] Crossmatch Interpretation Compatible 12/23/2012 1:02 PM [facility] Unit Status Returned 12/23/2012 1:02 PM [facility] Miscellaneous samples (specimen) BLOOD SPECIMEN / Unknown 12/23/2012 11:51 AM RN NIGHT Gregory Fung MD LAB - BLOOD BANK OR DERABLES [facility] * CROSSMATCH RBC (12/23/2012 1:02 PM RN NIGHT) Unit Donor # [id number] -[id number] 12/23/2012 1:02 PM [facility] Product Code E0420 12/23/2012 1:02 PM [facility] Unit Description E0420 RBC, IRR, LR, -5 12/23/2012 1:02 PM [facility] ABO Donor Type A 12/23/2012 1:02 PM [facility] Rh Type Unit POS 12/23/2012 1:02 PM [facility] Crossmatch Interpretation Compatible 12/23/2012 1:02 PM [facility] Unit Status Returned 12/23/2012 1:02 PM [facility] Miscellaneous samples (specimen) BLOOD SPECIMEN / Unknown 12/23/2012 11:51 AM RN NIGHT Gregory Fung MD LAB - BLOOD BANK OR DERABLES [facility] * CROSSMATCH RBC (12/23/2012 1:02 PM RN NIGHT) Unit Donor # [id number] -[id number] 12/23/2012 1:02 PM [facility] Product Code E0420 12/23/2012 1:02 PM [facility] Unit Description E0420 RBC, IRR, LR, -5 12/23/2012 1:02 PM [facility] ABO Donor Type A 12/23/2012 1:02 PM [facility] Rh Type Unit POS 12/23/2012 1:02 PM [facility] Crossmatch Interpretation Compatible 12/23/2012 1:02 PM [facility] Unit Status Returned 12/23/2012 1:02 PM [facility] Miscellaneous samples (specimen) BLOOD SPECIMEN / Unknown 12/23/2012 11:51 AM [facility] Gregory Fung MD LAB - BLOOD BANK OR DERABLES [facility] * (ABNORMAL) ISTAT CG8+ PANEL NATHAN (12/23/2012 11:50 AM RN NIGHT) pH Venous POCT 7.26(L) 7.35 - 7.45 pH 12/23/2012 6:01 PM [facility] pCO2 Venous POCT 44.5 35 - 48 mmHg 12/23/2012 6:01 PM [facility] pO2 Venous POCT 39(L) 83 - 108 mmHg 12/23/2012 6:01 PM [facility] HCO3 Venous 19.8(L) 23 - 28 mmol/L 12/23/2012 6:01 PM [facility] BE Venous -7(L) -2 - 2 mmol/L 12/23/2012 6:01 PM [facility] TCO2 Venous Calc POCT 21(L) 22 - 30 mmol/L 12/23/2012 6:01 PM [facility] O2 Saturation Venous POCT 65(L) 95 - 99 % 12/23/2012 6:01 PM [facility] Sodium Venous 166(HH) 136 - 146 mmol/L 12/23/2012 6:01 PM [facility] Potassium POCT 4.3 3.4 - 4.5 mmol/L 12/23/2012 6:01 PM [facility] Calcium Ionized Venous POCT 0.80(L) 1.12 - 1.32 mmol/L 12/23/2012 6:01 PM [facility] Glucose Venous POCT 143(H) 70 - 106 mg/dL 12/23/2012 6:01 PM [facility] Hemoglobin Venous POCT 16.7 12.0 - 17.6 g/dL 12/23/2012 6:01 PM [facility] Hematocrit Venous POCT 49.0 41.0 - 53.0 %PCV 12/23/2012 6:01 PM [facility] Site Nathan Line 12/23/2012 6:01 PM [facility] CPB iSTAT No 12/23/2012 6:01 PM [facility] Sample iSTAT VENOUS 12/23/2012 6:01 PM [facility] Blood specimen (specimen) BLOOD SPECIMEN / Unknown 12/23/2012 11:50 AM RN NIGHT 12/23/2012 6:01 PM [facility] Narrative [facility] - 12/23/2012 6:01 PM [facility] NOTE: Reference ranges are for Arterial Blood. Gregory Fung MD LAB - POINT OF CARE ORDERABLES Performing Organization Address City/State/[facility] Co de Phone Number [facility] [address] [facility] [place] [address] * GROSS + MICRO EXAM (STL) (12/23/2012 10:41 AM [facility]) Case Report Surgical Pathology Report ? Case: [id number] ? Authorizing Provider: ??Gregory Fung MD ?Ordering Provider: ?? Gregory Fung MD ? Ordering Location: ? [facility] ? Collected: ? 12/23/2012 10:41 AM ? Pathologist: ? Alejandro Bay MD ?Received: ?12/23/2012 ??2:50 PM ?Signed Out: ?12/29/2012 ??2:27 PM (Final) ? Specimens: ?? A) - Spleen, Accessory Spleen ? B) - Spleen ? 12/29/2012 2:27 PM RN NIGHT [facility] Final Diagnosis A)ACCESSORY SPLEEN, RESECTION: - ACCESSORY SPLEEN. B)SPLEEN, 213 g. SPLENECTOMY: - VASCULAR AND SINUSOIDAL CONGESTION. - NEGATIVE FOR LYMPHOMA(SEE NOTE) 12/29/2012 2:27 PM [facility] Clinical History The patient is a 17-year-old male with history of ITP, neutropenia, history of liver transplant and autoimmune hepatitis who underwent open splenectomy. 12/29/2012 2:27 PM [facility] Gross Description The specimens are received [...] area measuring 0.1 cm in greatest diameter. ??Plant Director sections from the specimen are submitted in cassette B1 and B2. ??A portion of the specimen is placed in RPMI for flow cytometry analysis. ?? SKS/scs 12/29/2012 2:27 PM [facility] Microscopic Description Sections of the spleen and accessory spleen show congested splenic parenchyma with reactive follicles. Follicles have well-defined marginal zones and prominent germinal centers with mitotic activity. No atypia or malignancy is seen. Plant Director section of the grossly described nodular lesion shows a laminated area of collagen and fibrosis continuous with the splenic capsule. A portion of the specimen was submitted for flow cytometric analysis([id number]), and results showed no evidence of Non-Hodgkin Lymphoma. 12/29/2012 2:27 PM [facility] Flow Cytometry Summary NO EVIDENCE OF NON-HODGKIN LYMPHOMA (SEE REPORT FROM [facility] SIGNED BY DR. Subha DOUGHERTY) 12/29/2012 2:27 PM [facility] Reference SLIDES W[facility] SH[facility]: SHE CONCURS AND ADDS: HYPERPLASTIC WHITE PULP, LYMPHOCYTE DEPLETION, NUMEROUS MACROPHAGES, FOLLICULAR DENDRITIC CELLS AND SCATTERED APOPTOTIC CELLS. NO EVIDENCE OF LYMPHOMA. 12/29/2012 2:27 PM [facility] Disclaimer The performance characteristics of all immunohistochemical and indirect ??immunofluorescence stains (if any) cited in this report were determined by the Histopathology Laboratory of [facility] (immunohistochemistry ) or the Histology Laboratory of [facility] (indirect immunofluorescence) in compliance with CLIA `88 regulations. ??Some of these tests rely on the use of analyte-specific reagents and are subject to specific labeling requirements by the FDA. ??Such tests were developed by the ??[facility] Laboratory of [facility] or the Histology Laboratory of [facility] and have not been cleared or approved by the FDA. ??The FDA has determined that such clearance or approval is not necessary. ??These tests are used for clinical purposes and should not be regarded as investigational or for research. ? This case has been personally reviewed and interpreted by the attending (teaching) pathologist. 12/29/2012 2:27 PM [facility] Synoptic Report 12/29/2012 2:27 PM [facility] Miscellaneous samples (specimen) ENTIRE SPLEEN / Unknown 12/23/2012 10:41 AM [facility] 12/23/2012 2:50 PM [facility] Miscellaneous samples (specimen) ENTIRE SPLEEN / Unknown 12/23/2012 12:15 PM [facility] 12/23/2012 2:50 PM [facility] Gregory Fung MD LAB - PATHOLOGY/CYT OLOGY ORDERABLES [facility] [address] [place] [address] * (ABNORMAL) CBC W AUTO DIFFERENTIAL (12/23/2012 6:53 AM [facility]) WBC 6.5 4.4 - 10.7 x10^9/L 12/23/2012 7:22 AM [facility] RBC 4.90 3.80 - 5.40 x10^12/L 12/23/2012 7:22 AM [facility] Hemoglobin 15.8 12.0 - 17.6 g/dL 12/23/2012 7:22 AM [facility] Hematocrit 42.7 35.2 - 51.7 % 12/23/2012 7:22 AM [facility] MCV 87.1 80.7 - 98.3 fl 12/23/2012 7:22 AM [facility] MCH 32.2 26.7 - 34.0 pg 12/23/2012 7:22 AM [facility] MCHC 37.0(H) 30.8 - 35.9 gm/dL 12/23/2012 7:22 AM [facility] RDW-CV 12.7 12.1 - 14.9 % 12/23/2012 7:22 AM [facility] MPV 10.8 9.4 - 12.9 fl 12/23/2012 7:22 AM [facility] Neutrophils % 58 44 - 73 % 12/23/2012 7:22 AM [facility] Lymphocytes % 24 20 - 43 % 12/23/2012 7:22 AM [facility] Monocytes % 14(H) 5 - 13 % 12/23/2012 7:22 AM [facility] Eosinophils % 4 0 - 6 % 12/23/2012 7:22 AM [facility] Basophils % 0 0 - 2 % 12/23/2012 7:22 AM [facility] Immature Granulocytes 0.3 0 - 1 % 12/23/2012 7:22 AM [facility] Neutrophil Absolute 3.77 2.01 - 7.14 x10^9/L 12/23/2012 7:22 AM [facility] Lymphocytes Absolute 1.52 1.07 - 3.94 x10^9/L 12/23/2012 7:22 AM [facility] Monocytes Absolute 0.87 0.26 - 1.07 x10^9/L 12/23/2012 7:22 AM [facility] Eosinophils Absolute 0.25 0 - 0.47 x10^9/L 12/23/2012 7:22 AM [facility] Basophils Absolute 0.02 0 - 0.08 x10^9/L 12/23/2012 7:22 AM [facility] Immature Granulocytes Absolute 0.02 0.00 - 0.06 x10^9/L 12/23/2012 7:22 AM [facility] Platelet Count 116(L) 153 - 416 x10^9/L 12/23/2012 7:22 AM [facility] Blood specimen (specimen) BLOOD SPECIMEN / Unknown 12/23/2012 6:53 AM RN NIGHT 12/23/2012 7:08 AM RN NIGHT Adriane Smith MD LAB - HEMATOLOGY O SARAH Performing Organization Address City/[facility]/ZIP Co de Phone Number [facility] [address] [place] [id number] * CROSSMATCH RBC (12/23/2012 6:53 AM RN NIGHT) Unit Donor # [id number] -[id number] 12/23/2012 4:10 PM [facility] Product Code E0420 12/23/2012 4:10 PM [facility] Unit Description E0420 RBC, IRR, LR, -5 12/23/2012 4:10 PM [facility] ABO Donor Type O 12/23/2012 4:10 PM [facility] Rh Type Unit NEG 12/23/2012 4:10 PM [facility] Crossmatch Interpretation COMP 12/23/2012 4:10 PM [facility] Unit Status Transfused Unit 12/23/2012 4:10 PM [facility] Miscellaneous samples (specimen) BLOOD SPECIMEN / Unknown 12/23/2012 6:53 AM RN NIGHT 12/23/2012 7:08 AM RN NIGHT Adriane Smith MD LAB - BLOOD BANK O SARAH [facility] * CROSSMATCH RBC (12/23/2012 6:53 AM RN NIGHT) Unit Donor # [id number] -[id number] 12/27/2012 12:12 AM [facility] Product Code E0420 12/27/2012 12:12 AM [facility] Unit Description E0420 RBC, IRR, LR, -5 12/27/2012 12:12 AM [facility] ABO Donor Type A 12/27/2012 12:12 AM [facility] Rh Type Unit POS 12/27/2012 12:12 AM [facility] Crossmatch Interpretation Compatible 12/27/2012 12:12 AM [facility] Unit Status Returned 12/27/2012 12:12 AM [facility] Miscellaneous samples (specimen) BLOOD SPECIMEN / Unknown 12/23/2012 6:53 AM RN NIGHT 12/23/2012 12:55 PM RN NIGHT Adriane Smith MD LAB - BLOOD BANK O SARAH [facility] * CROSSMATCH RBC (12/23/2012 6:53 AM RN NIGHT) Unit Donor # [id number] -[id number] 12/27/2012 12:12 AM [facility] Product Code E0420 12/27/2012 12:12 AM [facility] Unit Description E0420 RBC, IRR, LR, -5 12/27/2012 12:12 AM [facility] ABO Donor Type A 12/27/2012 12:12 AM [facility] Rh Type Unit POS 12/27/2012 12:12 AM [facility] Crossmatch Interpretation Compatible 12/27/2012 12:12 AM [facility] Unit Status Returned 12/27/2012 12:12 AM [facility] Miscellaneous samples (specimen) BLOOD SPECIMEN / Unknown 12/23/2012 6:53 AM RN NIGHT 12/23/2012 12:55 PM RN NIGHT Adriane Smith MD LAB - BLOOD BANK [facility] * ANTIBODY SCREEN (12/23/2012 6:53 AM RN NIGHT) Antibody Screen Negative 12/23/2012 12:04 PM [facility] Miscellaneous samples (specimen) BLOOD SPECIMEN / Unknown 12/23/2012 6:53 AM RN NIGHT 12/23/2012 7:08 AM RN NIGHT Adriane Smith MD LAB - BLOOD BANK O SARAH [facility] * BLOOD TYPE ABO+ RH PANEL (12/23/2012 6:53 AM RN NIGHT) ABO A 12/23/2012 12:04 PM [facility] Rh Type Positive 12/23/2012 12:04 PM [facility] Miscellaneous samples (specimen) BLOOD SPECIMEN / Unknown 12/23/2012 6:53 AM RN NIGHT 12/23/2012 7:08 AM RN NIGHT Adriane Smith MD LAB - BLOOD BANK O SARAH Performing Organization Address [facility]/ZIP Co de Phone Number [facility] * CROSSMATCH RBC (12/23/2012 6:53 AM RN NIGHT) Unit Donor # [id number] -[id number] 12/23/2012 4:10 PM [facility] Product Code E0420 12/23/2012 4:10 PM [facility] Unit Description E0420 RBC, IRR, LR, -5 12/23/2012 4:10 PM [facility] ABO Donor Type O 12/23/2012 4:10 PM [facility] Rh Type Unit NEG 12/23/2012 4:10 PM [facility] Crossmatch Interpretation COMP 12/23/2012 4:10 PM [facility] Unit Status Transfused Unit 12/23/2012 4:10 PM [facility] Miscellaneous samples (specimen) BLOOD SPECIMEN / Unknown 12/23/2012 6:53 AM RN NIGHT 12/23/2012 8:07 AM RN NIGHT Adriane Smith MD LAB - BLOOD BANK O SARAH [facility] documented in this encounter Visit Diagnoses Diagnosis Hypogammaglobulinemia (HCC) Hypogammaglobulinaemia, unspecified ITP (idiopathic thrombocytopenic purpura) (HCC) Immune thrombocytopenic purpura Neutropenia associated with autoimmune disease (HCC) Other neutropenia Cellulitis and abscess of face Lymphadenopathy Enlargement of lymph nodes History of liver transplant (HCC) Liver replaced by transplant Autoimmune hepatitis s/p liver transplant Autoimmune hepatitis Primary thrombocytopenia, unspecified (HCC) Primary thrombocytopenia, unspecified Other diseases of lung, not elsewhere classified Accidental puncture or laceration during procedure, not elsewhere classified ITP (idiopathic thrombocytopenic purpura) (HCC) Immune thrombocytopenic purpura Hypogammaglobulinemia (HCC) Hypogammaglobulinaemia, unspecified Autoimmune hepatitis s/p liver transplant Autoimmune hepatitis Primary thrombocytopenia, unspecified (HCC) Primary thrombocytopenia, unspecified Primary thrombocytopenia, unspecified (HCC) Primary thrombocytopenia, unspecified documented in this encounter Administered Medications Inactive Administered Medications - up to 3 most recent administrations Medication Order MAR Action Action Date Dose Rate Site 0.9 % nacl IV BOLUS 500 mL 500 mL, at 500 mL/hr, Administer over 60 Minutes, Intravenous, ONCE, 1 dose, On Wed12/23/12 at 2200 $ Given 12/23/2012 10:00 PM RN NIGHT 500 mL 500 mL/hr 0.9 % nacl IV BOLUS 500 mL 500 mL, at 500 mL/hr, Administer over 60 Minutes, Intravenous, ONCE, 1 dose, On Wed12/23/12 at 2330 $ Given 12/23/2012 11:16 PM RN NIGHT 500 mL 500 mL/hr 0.9% NaCl infusion ADS Med 1 dose, Starting on Wed12/23/12 at 2159, Until Wed12/23/12 at 2300, RASHIDA SANDOVAL: cabinet override 0.9% NaCl infusion ADS Med 1 dose, Starting on Wed12/24/12 at 1123, Until Wed12/24/12 at 1220, SERGIO JAFFE: cabinet override $ Given 12/24/2012 12:20 PM RN NIGHT 50 mL acetaminophen (TYLENOL) suppository 325 mg 325 mg, Rectal, ONCE, 1 dose, On Wed12/23/12 at 2315, Maximum allowable Acetaminophen amount = 4 Grams (4000 mg) / 24 hours. $ Given 12/23/2012 11:05 PM RN NIGHT 325 mg acetaminophen (TYLENOL) suppository 325 mg 325 mg, Rectal, EVERY 4 HOURS PRN, Fever, Starting on Wed12/24/12 at 0603, Until Wed12/27/12 at 0933, Maximum allowable Acetaminophen amount = 4 Grams (4000 mg) / 24 hours. $ Given 12/24/2012 6:20 AM RN NIGHT 325 mg ceFAZolin pediatric IV 1,000 mg 1,000 mg, Intravenous, EVERY 8 HOURS, 3 doses, First dose on Wed12/23/12 at 1500, Last dose on Wed12/24/12 at 0700, Max dose: Peds 6 g/24 hours; Adults 12 g/24 hours $ Given 12/24/2012 6:30 AM RN NIGHT 1,000 mg $ Given 12/23/2012 11:02 PM RN NIGHT 1,000 mg $ Given 12/23/2012 7:38 PM RN NIGHT 1,000 mg ceFAZolin pediatric IV 1,000 mg 1,000 mg, Intravenous, EVERY 8 HOURS, First dose on Wed12/25/12 at 1630, Until Discontinued, Diluted in Sterile Water. Administer over 3 to 5 min. $ Given 12/27/2012 9:08 AM RN NIGHT 1,000 mg $ Given 12/27/2012 1:05 AM RN NIGHT 1,000 mg $ Given 12/26/2012 4:32 PM RN NIGHT 1,000 mg dextrose 5% and 0.45% NaCl with KCl 20 mEq infusion at 50 mL/hr, Intravenous, CONTINUOUS, Starting on Wed12/23/12 at 1415, Until Wed12/28/12 at 1706 $ New Bag/Syringe 12/27/2012 6:08 PM RN NIGHT 50 mL/hr Rate Change 12/27/2012 9:37 AM RN NIGHT 50 mL/hr $ New Bag/Syringe 12/27/2012 4:50 AM RN NIGHT 100 mL /hr esomeprazole (NexIUM) injection 40 mg 40 mg, Intravenous, DAILY, First dose on Wed12/23/12 at 1600, Until Discontinued, Administer over 5 minutes. RX diluted in NS. $ Given 12/27/2012 9:08 AM RN NIGHT 40 mg $ Given 12/26/2012 8:28 AM RN NIGHT 40 mg $ Given 12/25/2012 7:31 AM RN NIGHT 40 mg morphine 1 mg/ml [employer] Intravenous, [employer], Until Wed12/25/12 at 1759, ............... [employer] Dose: 2 mg (recommended dose: 0.01-0.04 mg/kg) Lockout Interval: 15 minutes (recommended 10-20 minutes) $ New Bag/Syringe 12/24/2012 2:56 PM RN NIGHT $ New Bag/Syringe 12/24/2012 1:51 AM RN NIGHT Rate Change 12/23/2012 8:54 PM RN NIGHT 2 mg morphine injection 4 mg 4 mg, Intravenous, ONCE, 1 dose, On Wed12/23/12 at 1400, .......... Loading Dose: (IVPB only) recommended dose: 0.05-0.1 mg/kg Infuse over 20 minutes $ Given 12/23/2012 3:29 PM RN NIGHT 4 mg ondansetron (ZOFRAN) injection 4 mg 4 mg, Intravenous, EVERY 8 HOURS PRN, Nausea/Vomiting, Starting on Wed12/23/12 at 1346, Until Wed12/28/12 at 1706 $ Given 12/24/2012 12:08 PM RN NIGHT 4 mg penicillin G potassium pediatric IV syringe 2,000,000 Units 2,000,000 Units, at 16 mL/hr, Intravenous, EVERY 4 HOURS, First dose on Wed12/24/12 at 0900, Until Discontinued $ Given 12/24/2012 8:46 AM RN NIGHT 2,000,000 Units 16 mL/hr phenol (CHLORASEPTIC) 1.4 % liquid Oral, PRN, Sore Throat, Starting on Wed12/23/12 at 2153, Until Wed12/28/12 at 1706, . WASTE DISPOSAL INSTRUCTIONS: Black Bin Disposal required. $ Given 12/25/2012 12:41 AM RN NIGHT $ Given 12/24/2012 12:18 AM RN NIGHT piperacillin-tazobactam (ZOSYN) 60 mg/ml pediatric IV 3,000 mg 3,000 mg, at 100 mL/hr, Intravenous, EVERY 6 HOURS, First dose (after last modification) on Wed12/24/12 at 1100, Until Discontinued, Diluted in D5W $ Given 12/25/2012 10:53 AM RN NIGHT 3,000 mg 100 mL/hr $ Given 12/25/2012 5:23 AM RN NIGHT 3,000 mg 100 mL/hr $ Given 12/24/2012 11:58 PM RN NIGHT 3,000 mg 100 mL/hr sulfamethoxazole-trimethoprim (BACTRIM DS; SEPTRA DS) 800-160 MG tablet 1 Tab 1 tablet, Oral, EVERY 12 HOURS, First dose on Wed12/27/12 at 0945, Until Discontinued $ Given 12/27/2012 9:10 PM RN NIGHT 1 tablet $ Given 12/27/2012 1:44 PM RN NIGHT 1 tablet tacrolimus (PROGRAF) capsule 1 mg 1 mg, Oral, 2 TIMES DAILY, First dose on Wed12/23/12 at 2100, Until Discontinued, Do not crush or open capsules and avoid inhalation and direct contact with skin or mucous membrane. $ Given 12/27/2012 9:10 PM RN NIGHT 1 mg $ Given 12/27/2012 9:08 AM RN NIGHT 1 mg $ Given 12/26/2012 8:29 PM RN NIGHT 1 mg valGANciclovir (VALCYTE) tablet 450 mg 450 mg, Oral, 2 TIMES DAILY (with lunch and supper), First dose (after last modification) on Wed12/23/12 at 2000, Until Discontinued, Carcinogenic - Use proper procedures for handling and disposal. Do not crush, chew, or cut in half. $ Given 12/25/2012 7:05 AM RN NIGHT 450 mg $ Given 12/24/2012 8:35 PM RN NIGHT 450 mg $ Given 12/24/2012 7:36 AM RN NIGHT 450 mg valGANciclovir (VALCYTE) tablet 450 mg 450 mg, Oral, DAILY WITH BREAKFAST, First dose (after last modification) on Wed12/26/12 at 0800, Until Discontinued, Carcinogenic - Use proper procedures for handling and disposal. Do not crush, chew, or cut in half. $ Given 12/27/2012 9:08 AM RN NIGHT 450 mg $ Given 12/26/2012 8:28 AM RN NIGHT 450 mg documented in this encounter Active and Recently Administered Medications Times are shown in RN NIGHT. Scheduled Medication Order 12/26/2012 12/27/2012 12/28/2012 ceFAZolin pediatric IV 1,000 mg (CANCELED) 1,000 mg, Intravenous, EVERY 8 HOURS, First dose on Wed12/25/12 at 1630, Until Discontinued, Diluted in Sterile Water. Administer over 3 to 5 min. 0027 ($ Given - Provider: Shaye Chaudhari RN - Comment: Med was scanned not sure why it didn't go through)0828 ($ Given - Provider: Keya Allen RN)1632 ($ Given - Provider: Keya Allen RN) 0105 ($ Given - Provider: Lydia Peña RN)0908 ($ Given - Provider: Ny Phillips RN) esomeprazole (NexIUM) injection 40 mg (CANCELED) 40 mg, Intravenous, DAILY, First dose on Wed12/23/12 at 1600, Until Discontinued, Administer over 5 minutes. RX diluted in NS. 08 ($ Given - Provider: Keya Allen RN) 09 ($ Given - Provider: Ny Phillips RN) 0830 ($ Given During Downtime - Provider: Lamar Wang RN) sulfamethoxazole-trimet hoprim (BACTRIM DS; SEPTRA DS) 800-160 MG tablet 1 Tab 1 tablet, Oral, EVERY 12 HOURS, First dose on Wed12/27/12 at 0945, Until Discontinued 134 ($ Given - Provider: Ny Phillips RN)2109 ($ Given - Provider: Erica Pruitt APRN-PEIRCE) 0830 ($ Given During Downtime - Provider: Lamar Wang RN) tacrolimus (PROGRAF) capsule 0.5 mg 0.5 mg, Oral, 2 TIMES DAILY, First dose (after last modification) on Wed12/28/12 at 2030, Until Discontinued, Do not crush or open capsules and avoid inhalation and direct contact with skin or mucous membrane. tacrolimus (PROGRAF) capsule 1 mg (CANCELED) 1 mg, Oral, 2 TIMES DAILY, First dose on Wed12/23/12 at 2100, Until Discontinued, Do not crush or open capsules and avoid inhalation and direct contact with skin or mucous membrane. 0828 ($ Given - Provider: Keya Allen RN)2028 ($ Given - Provider: Gypsy Long (Sn)) 09 ($ Given - Provider: Ny Phillips RN)2109 ($ Given - Provider: Erica Pruitt APRN-PIERCE) 0830 ($ Given During Downtime - Provider: Lamar Wang RN) valGANciclovir (VALCYTE) tablet 450 mg 450 mg, Oral, DAILY WITH BREAKFAST, First dose (after last modification) on Wed12/26/12 at 0800, Until Discontinued, Carcinogenic - Use proper procedures for handling and disposal. Do not crush, chew, or cut in half. 08 ($ Given - Provider: Keya Allen RN) 09 ($ Given - Provider: Ny Phillips RN) 0800 ($ Given During Downtime - Provider: Lamar Wang RN) Continuous Medication Order 12/26/2012 12/27/2012 12/28/2012 dextrose 5% and 0.45% NaCl with KCl 20 mEq infusion (CANCELED) at 50 mL/hr, Intravenous, CONTINUOUS, Starting on Wed12/23/12 at 1415, Until Wed12/28/12 at 1706 0744 ($ New Bag/Syringe - Provider: Keya Allen RN)1947 ($ New Bag/Syringe - Provider: Lydia Peña, SHAILESH) 0450 ($ New Bag/Syringe - Provider: Lydia Peña RN)0937 (Rate Change - Provider: Ny Phillips, SHAILESH)1808 ($ New Bag/Syringe - Provider: Ny Phillips, SHAILESH) documented in this encounter Care Teams Natural Resources Engineer Relationship Specialty Start Date End Date Vilma Spangler MD [address] [address] PCP - General 01/05/11 documented as of this encounter
--- OUTSIDE RECORDS SUMMARY | 2024-10-28 05:56 | XMS_ITS | Encounter Summary ---
Author Organization [facility] Address [address] [place] [address] Care Team Providers Care Body Component Engineer Name Role Phone Vilma Spangler MD Primary Care Provider Encounter Details Date Type Department Care Team (Latest Contact Info) Description 11/22/2012 7:30 AM HAIRSPRING INSPECTOR - 11/22/2012 11:59 PM HAIRSPRING INSPECTOR Hospital Encounter [facility] at [address] [phone] Jason Fischer MD [address] [place] [phone] Discharge Disposition: Home or Self Care Social [...] Sign Reading Time Taken Comments Blood Pressure 116/80 11/22/2012 7:45 AM HAIRSPRING INSPECTOR Pulse 82 11/22/2012 7:45 AM HAIRSPRING INSPECTOR Temperature 36.6 ??C (97.8 ??F) 11/22/2012 7:45 AM CS T Respiratory Rate 16 11/22/2012 7:45 AM HAIRSPRING INSPECTOR Oxygen Saturation 99% 11/22/2012 7:45 AM HAIRSPRING INSPECTOR Inhaled Oxygen Concentration - - Weight 56.1 kg (123 lb 10.9 oz) 013 7:45 AM HAIRSPRING INSPECTOR Height 169.2 cm (5' 6.61 ) 11/22/2012 7:45 AM CS T Body Mass Index 19.6 11/22/2012 7:45 AM HAIRSPRING INSPECTOR documented in this encounter Discharge Instructions * Discharge Instructions* Document, Scanned - 11/22/2012 8:11 PM HAIRSPRING INSPECTOR SPRING INSPECTOR documented in this encounter Medications at Time of Discharge Medication Sig Dispensed Refills Start Date End Date acetaminophen (TYLENOL) 325 MG tablet Take 325 mg by mouth every 4 hours as needed. Maximum allowable Acetaminophen amount = 4 Grams (4000 mg) / 24 hours. tacrolimus (PROGRAF) 1 MG capsule Take 1 Cap by mouth 2 times daily. 60 Cap 6 03/14/2012 12/28/2012 documented as of this encounter Progress Notes * Leyla Vargas RN - 11/22/2012 10:05 AM CST Patient here with parents for scheduled Counts / Nurse visit. Was admitted to the hospital on 11-16-12 through 11-17-12 for IVIG infusion. He has chronic ITP. Sent patient to Lab for venipuncture. PLT [address] Wm Fischer reviewed lab results; patient is not on steroids, just taking tacrolimus. Patient will repeat Counts locally in 1 week with results FAXed to [facility] clinic. Patient reports bruising at site of PIV in right forearm. Nuria Noland, Nurse Practitioner, examined patient's arm. It appears thatthe PIV infiltrated the tissue when he was treated this weekend. Forearm is soft, pain- free, and bruised but no pus or red streaks are visible. Patient instructed by BEEF RIBBER to monitor arm for worsening pain, development of pus, etc. Patient left clinic ambulatory with parents. SPRING INSPECTOR * Radha Herrera RN - 11/22/2012 8:29 AM CST Beka is being seen in clinic for a scheduled counts. Patient assessed and triaged by this RN. No concerns to or issues to report. Patient navigator reviewed and completed by this RN and Beka. Patient report given to Leyla Arthur RN. SPRING INSPECTOR documented in this encounter Procedure Notes * Document, Scanned - 12/09/2012 11:04 AM CSTAssociated Order(s): LAB RESULTS ORDER SPRING INSPECTOR documented in this encounter Miscellaneous Notes * Miscellaneous Scans - Document, Scanned - 12/19/2012 12:56 PM CST SPRING INSPECTOR documented in this encounter Plan of Treatment Not on file documented as of this encounter Procedures Procedure Name Priority Date/Time Associated Diagnosis Comments LAB RESULTS ORDER 12/09/2012 11: 04 AM HAIRSPRING INSPECTOR DIFFERENTIAL MANUAL Routine 11/22/2012 8 :05 AM HAIRSPRING INSPECTOR ITP (idiopathic thrombocytopenic purpura) CBC W AUTO DIFFERENTIAL ZAHRA 11/22/2012 8:05 AM HAIRSPRING INSPECTOR ITP (idiopathic thrombocytopenic purpura) documented in this encounter Results * LAB RESULTS ORDER (12/09/2012 11:04 AM HAIRSPRING INSPECTOR) Narrative 12/09/2012 11:04 AM HAIRSPRING INSPECTOR Procedure Note Document, Scanned - 12/09/2012 11:04 AM CST Scanned Document LAB - THERAPEUTIC DR ELEUTERIO MONITORING ORDERABLES * (ABNORMAL) DIFFERENTIAL MANUAL (11/22/2012 8:05 AM HAIRSPRING INSPECTOR) WBC Auto 5.7 4.4 - 10.7 X(10)9/L 11/22/2012 9:02 AM [facility] Neutrophil % Manual 47 44 - 73 % 11/22/2012 9:02 AM [facility] Lymphocytes % Manual 30 20 - 43 % 11/22/2012 9:02 AM [facility] Monocytes % Manual 15(H) 5 - 13 % 2012 9:02 AM [facility] Eosinophils % Manual 1 0 - 6 % 11/22/2012 9:02 AM [facility] Basophils % Manual 1 0 - 2 % 2012 9:02 AM [facility] Atypical Lymphocyte % Manual 6(H) <=0 % 11/22/2012 9:02 AM [facility] Cells Counted 100 # cells 11/22/2012 9:02 AM [facility] Platelet Estimation Adequate platelets 11/22/2012 9:02 AM [facility] WBC Morph Normal 11/22/2012 9:02 AM [facility] Anisocytosis Slight 11/22/2012 9:02 AM [facility] Poikilocytosis Slight 11/22/2012 9:02 AM [facility] Blood specimen (specimen) BLOOD SPECIMEN / Unknown 11/22/2012 8:05 AM [facility] 11/22/2012 8:14 AM [facility] Jason Fischer MD LAB - HEMATOLOGY O RDERABLES Performing Organization Address City/State/[facility] Co de Phone Number [facility] [address] [place] [address] * (ABNORMAL) CBC W AUTO DIFFERENTIAL (11/22/2012 8:05 AM [facility]) WBC 5.7 4.4 - 10.7 x10^9/L 11/22/2012 8:35 AM [facility] RBC 4.89 3.80 - 5.40 x10^12/L 11/22/2012 8:35 AM [facility] Hemoglobin 16.0 12.0 - 17.6 g/dL 11/22/2012 8:35 AM [facility] Hematocrit 42.9 35.2 - 51.7 % 11/22/2012 8:35 AM [facility] MCV 87.7 80.7 - 98.3 fl 11/22/2012 8:35 AM [facility] MCH 32.7 26.7 - 34.0 pg 11/22/2012 8:35 AM [facility] MCHC 37.3(H) 30.8 - 35.9 gm/dL 11/22/2012 8:35 AM [facility] RDW-CV 12.9 12.1 - 14.9 % 11/22/2012 8:35 AM [facility] MPV 10.2 9.4 - 12.9 fl 11/22/2012 8:35 AM [facility] Neutrophils % 54 44 - 73 % 11/22/2012 8:35 AM [facility] Lymphocytes % 23 20 - 43 % 11/22/2012 8:35 AM [facility] Monocytes % 17(H) 5 - 13 % 11/22/2012 8:35 AM [facility] Eosinophils % 4 0 - 6 % 11/22/2012 8:35 AM [facility] Basophils % 0 0 - 2 % 11/22/2012 8:35 AM [facility] Immature Granulocytes 0.4 0 - 1 % 11/22/2012 8:35 AM [facility] Neutrophil Absolute 3.08 2.01 - 7.14 x10^9/L 11/22/2012 8:35 AM [facility] Lymphocytes Absolute 1.32 1.07 - 3.94 x10^9/L 11/22/2012 8:35 AM [facility] Monocytes Absolute 0.99 0.26 - 1.07 x10^9/L 11/22/2012 8:35 AM [facility] Eosinophils Absolute 0.25 0 - 0.47 x10^9/L 11/22/2012 8:35 AM [facility] Basophils Absolute 0.02 0 - 0.08 x10^9/L 11/22/2012 8:35 AM [facility] Immature Granulocytes Absolute 0.02 0.00 - 0.06 x10^9/L 11/22/2012 8:35 AM [facility] Hematology Reflex Status Manual Diff to follow (none) 11/22/2012 8:35 AM [facility] Platelet Count 239 153 - 416 x10^9/L 11/22/2012 8:35 AM [facility] Blood specimen (specimen) BLOOD SPECIMEN / Unknown 11/22/2012 8:05 AM [facility] 11/22/2012 8:14 AM [facility] Jason Fischer MD LAB - HEMATOLOGY O RDERABLES Performing Organization Address City/State/[facility] [[email or web address]] de Phone Number [facility] [address] [place] [address] documented in this encounter Visit Diagnoses Diagnosis ITP (idiopathic thrombocytopenic purpura) (HCC) Immune thrombocytopenic purpura documented in this encounter Care Teams Body Component Engineer Relationship Specialty Start Date End Date Vilma Spangler MD [address] [phone] PCP - General 01/05/11 documented as of this encounter
--- OUTSIDE RECORDS SUMMARY | 2024-10-28 05:56 | XMS_ITS | Encounter Summary ---
Author Organization [facility] Address [address] [place] [address] Care Team Providers Care Automotive Generator Repairer Name Role Phone Vilma Spangler MD Primary Care Provider Encounter Details Date Type Department Care Team (Latest Contact Info) Description 01/02/2013 8:15 AM [facility] - 01/02/2013 9:15 AM [facility] Hospital Encounter [address] [address] Omar Moreland MD [facility] [place] [address] Discharge Disposition: Home or Self Care Social [...] on file documented as of this encounter Medications at Time of Discharge [...] 12/28/2012 01/30/2013 documented as of this encounter Plan of Treatment Not on file documented as of this encounter Procedures Procedure Name Priority Date/Time Associated Diagnosis Comments LIPASE FLUID Routine 01/02/2013 8:35 AM [facility] Primary thrombocytopenia, unspecified (HCC) AMYLASE FLUID Routine 01/02/2013 8:35 AM [facility] Primary thrombocytopenia, unspecified (HCC) TACROLIMUS LEVEL Routine 01/02/2013 8:17 AM [facility] Primary thrombocytopenia, unspecified (HCC) LIPASE BLOOD Routine 01/02/2013 8:17 AM [facility] Primary thrombocytopenia, unspecified (HCC) AMYLASE BLOOD Routine 01/02/2013 8:17 AM [facility] Primary thrombocytopenia, unspecified (HCC) documented in this encounter Results * LIPASE FLUID (01/02/2013 8:35 AM [facility]) Lipase Fluid 80 U/L 01/02/2013 9:37 AM [facility] Fluid Type Peritoneal 01/02/2013 9:37 AM [facility] Fluid specimen (specimen) PERITONEAL FLUID / Unknown 01/02/2013 8:35 AM [facility] 01/02/2013 8:40 AM [facility] - 01/02/2013 9:37 AM [facility] Fluid Disclaimer No reference ranges are available for this specimen type, results may be inaccurate, assay designed for serum/plasma or urine. Assay was performed at client? s request on a suboptimal specimen type. Test results should be interpreted with caution. Omar Moreland MD LAB - BODY FLUID ORD ERABLES [facility] [address] [facility] [place] [address] * AMYLASE FLUID (01/02/2013 8:35 AM [facility]) Amylase Fluid 41 U/L 01/02/2013 9:36 AM [facility] Fluid specimen (specimen) PERITONEAL FLUID / Unknown 01/02/2013 8:35 AM [facility] 01/02/2013 8:40 AM [facility] Narrative [facility] - 01/02/2013 9:36 AM [facility] Fluid Disclaimer No reference ranges are available for this specimen type, results may be inaccurate, assay designed for serum/plasma or urine. Assay was performed at client? s request on a suboptimal specimen type. Test results should be interpreted with caution. Omar Moreland MD LAB - BODY FLUID ORD ERABLES Performing Organization Address [facility] Co de Phone Number [facility] [address] [place] [phone] * LIPASE BLOOD (01/02/2013 8:17 AM [facility]) Lipase 48 10 - 220 U/L 01/02/2013 9:26 AM [facility] Blood specimen (specimen) BLOOD SPECIMEN / Unknown 01/02/2013 8:17 AM [facility] 01/02/2013 8:36 AM [facility] Omar Moreland MD LAB - CHEMISTRY ORDE RABJIM Performing Organization Address [facility] Co de Phone Number [facility] [address] [place] [phone] * AMYLASE BLOOD (01/02/2013 8:17 AM [facility]) Amylase 56 25 - 125 U/L 01/02/2013 9:26 AM [facility] Blood specimen (specimen) BLOOD SPECIMEN / Unknown 01/02/2013 8:17 AM [facility] 01/02/2013 8:36 AM [facility] Omar Moreland MD LAB - CHEMISTRY ORDE RABJIM Performing Organization Address [facility] Co de Phone Number [facility] [address] [place] [phone] * TACROLIMUS LEVEL (01/02/2013 8:17 AM [facility]) Tacrolimus 3.6 2.0 - 15.0 ng/mL 01/02/2013 11:50 AM [facility] Blood specimen (specimen) BLOOD SPECIMEN / Unknown 01/02/2013 8:17 AM [facility] 01/02/2013 8:36 AM [facility] Narrative [facility] - 01/02/2013 11:50 AM [facility] Tacrolimus Information: Nephrology and Cardiology: 3.0-12.0 ng/mL ?GI: 2.0-15.0 ng/mL Omar Moreland MD LAB - THERAPEUTIC DR MCCLELLAN MONITORING ORDERABLES Performing Organization Address City/State/[facility] Co md Phone Number [facility] [address] [place] [address] documented in this encounter Visit Diagnoses Diagnosis Primary thrombocytopenia, unspecified (HCC) Primary thrombocytopenia, unspecified documented in this encounter Care Teams Automotive Generator Repairer Relationship Specialty [place] [address] [place], [place] [phone] PCP - General 01/05/11 documented as of this encounter
--- OUTSIDE RECORDS SUMMARY | 2024-10-28 05:56 | XMS_ITS | Encounter Summary ---
Author Organization [facility] Address [address] [place] [address] Care Team Providers Care Account Manager Forest Service Name Role Phone Vilma Spangler MD Primary Care Provider [phone] Reason for Visit * Reason Onset Date Comments Results 12/06/2012 Encounter Details Date Type Department Care Team (Late st Contact Info) Description 12/06/2012 Telephone [facility] at [address] [address] Dariela Winston RN Results Social History Tobacco [...] Telephone Encounter - Dariela Winston RN - 12/06/2012 6:05 PM CST Received CBC from [facility] and reviewed with Dr. Chavez. PLTS 82,000. Mom called with results and instructed to return to clinic 12/16 for visit, labs and possible IVIG. Scheduled for splenectomy 12/19. Mom verbalized understanding and will call with any bruising, bleeding or petechiae. OMS AGENT documented in this encounter Plan of Treatment Not on file documented as of this encounter Visit Diagnoses Not on filedocumented in this encounter Care Teams Account Manager Forest Service Relationship Specialty Start Date End Date Vilma Spangler MD [address] [place], [place] [phone] PCP - General 01/05/11 documented as of this encounter
--- OUTSIDE RECORDS SUMMARY | 2024-10-28 05:56 | XMS_ITS | Encounter Summary ---
Author Organization [facility] Address [address] [place] [address] Care Team Providers Care Equipment Sterilizer Name Role Phone Vilma Spangler MD Primary Care Provider [phone] Reason for Visit * Auth/Cert - Closed Specialty Diagnoses / Procedures Referred By Contyadira t Referred To Contact Diagnoses Primary thrombocytopenia, unspecified (HCC) Procedures SPLENECTOMY LAPAROSCOPIC SPLENECTOMY Referral ID Status Reason Start Date Expiration Date Visits Re quested Visits Authorized [id number] Closed 1 1 Encounter Details Date Type Department Care Team (Late st Contact Info) Description 12/23/2012 7:30 AM CLINICAL RESEARCH NURSE COORDINATOR - 12/23/2012 11:50 AM CLINICAL RESEARCH NURSE COORDINATOR Surgery [facility] - [address] [address] Gregory Fung MD [address] [place] [id number] LAPAROSCOPIC SPLENECTOMY Surgery Details Date/Time Status Location OR Service Patient Class Case Class Case Type Trauma Case? 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 > 5 days Panel 1 Procedure LRB Anes Op Region Wound Class Comments LAPAROSCOPIC SPLENECTOMY N/A General Abdomen Clean attempted LAPAROSCOPIC converted to OPEN SLENECTOMY, adhesiolysis, closure of enterotomy SPLENECTOMY General Abdomen Clean Surgeon Surgeon Role Service Panel Gregory Fung MD Primary General 1 Robert Cameron MD Fellow General 1 Nish Forde MD Assisting General 1 Nish Forde MD Assisting General 1 Kay Marc MD Assisting General 1 Hipolito Ardon MD Assisting General 1 Special Needs 5 day hospital stayLong term CG [id number] lap instruments documented in this encounter Social History Tobacco Use Types Packs/Day Years [...] Comments Blood Pressure 104/63 12/28/2012 11:23 AM CLINICAL RESEARCH NURSE COORDINATOR Pulse 72 12/28/2012 11:23 AM CLINICAL RESEARCH NURSE COORDINATOR Temperature 37 ??C (98.6 ??F) 12/28/2012 11:23 AM CLINICAL RESEARCH NURSE COORDINATOR Respiratory Rate 18 12/28/2012 11:23 AM CLINICAL RESEARCH NURSE COORDINATOR Oxygen Saturation 98% 12/28/2012 11:23 AM CLINICAL RESEARCH NURSE COORDINATOR Inhaled Oxygen Concentration 100% 12/24/2012 7 :00 AM CLINICAL RESEARCH NURSE COORDINATOR Weight 53.6 kg (118 lb 2.7 oz) 12/28/2012 7:50 A M CLINICAL RESEARCH NURSE COORDINATOR Height 172 cm (5' 7.72 ) 12/23/2012 6:00 AM CLINICAL RESEARCH NURSE COORDINATOR Body Mass Index 18.12 12/23/2012 6:00 AM CLINICAL RESEARCH NURSE COORDINATOR documented in this encounter Discharge Summaries * [...] Pr dental surgery procedure 2011 Removal of Dunn teeth in dental office under sedation ??? [...] Hx ??? Marfan Syndrome Neg Hx ??? GA Neg Hx ??? Osteoporosis Neg Hx ??? [...] 132 59 56 Results for BEKA NICHOLS Ben ( ) as of 12/29/2012 10:07 Ref. [...] Dressing: cdi Beka Nichols Home Medication Instructions [id number] Printed on:12/28/12 2782 Medication Information acetaminophen (TYLENOL) 325 MG tablet [...] MD during the pediatric surgery clinic. Call [phone] for appointment time. Return to ER or call [phone] and page pediatric surgery resident if develop severe pain, nausea, vomiting, or fever > 101.0 F. Omar Moreland MD CC: Vilma Spangler documented in this encounter Discharge Instructions * Discharge Instructions* Suze Rollins RN - 12/28/2012 3:51 PM CLINICAL RESEARCH NURSE COORDINATOR Discharge Instructions for: Beka Nichols Discharge Procedure [...] primary care doctor cannot be reached. 12/28/2012 ICAL RESEARCH NURSE COORDINATOR * Discharge Instructions* Document, Scanned - 12/30/2012 6:39 AM CLINICAL RESEARCH NURSE COORDINATOR ICAL RESEARCH NURSE COORDINATOR documented in this encounter Medications at Time [...] escorted to front entrance by student nurse. ICAL RESEARCH NURSE COORDINATOR * Gregory Fung MD - 12/28/2012 8:11 [...] 99 ??F 98.6 ??F 98.2 ??F Resp: 18 16 Weight: 53.6 kg (118 lb 2.7 oz) SpO2: 97% 100% 99% Date 12/27/12 0700 - 12/28/12 0659 12/28/12 0700 - 12/29/12 0659 Shift 0497-0262 4799-0831 4110-6510 24 Hour Total 7597-1121 7468-0304 9518-5101 24 Hour Total I N T A K E P.O. 840 894 736 2009 I.V. (mL/kg) 582 (10.5) 398 (7.2) 413 [...] AM Omar Moreland MD 12/28/2012 8:11 AM ICAL RESEARCH NURSE COORDINATOR * Adriane Smith MD - 12/27/2012 8:42 [...] Smith MD PGY1 General Surgery Resident Pager: [phone] December 27, 2012 8:42 PM ICAL RESEARCH NURSE COORDINATOR * Ny Phillips RN - 12/27/2012 7:25 PM CST Bedside reporting given to subha porter rn orders and mar reviewed. Pt is awake and watching tv with mom at the bedside. No other significant events to report. ICAL RESEARCH NURSE COORDINATOR * Ny Phillips RN - 12/27/2012 4:00 PM CST Pt sitting up in bed visiting with family and friends. ICAL RESEARCH NURSE COORDINATOR * Philip Chavez MD - 12/27/2012 3:16 PM CST Beka is doing very well today. Likely to go home soon. Beka will need CBC in two weeks. This can be done outpatient at his surgery follow up. If all is well I will see him in 1 month. ICAL RESEARCH NURSE COORDINATOR * Gregory Fung MD - 12/27/2012 10:14 [...] Resp: Weight: SpO2: 98% 98% Date 12/26/12 0700 - 12/27/12 0659 12/27/12 0700 - 12/28/12 0659 Shift 4429-8818 4995-1076 7469-0419 24 Hour Total 6801-0261 7048-3885 8309-0187 24 Hour Total I N T A [...] AM Dannie Davila MD 12/27/2012 10:14 AM ICAL RESEARCH NURSE COORDINATOR * Ny Phillips RN - 12/27/2012 7:15 AM CST Report received and care assumed. Orders and mar reviewed. Pt sitting up in the chair with mom by his side. Pt alert and oriented. ICAL RESEARCH NURSE COORDINATOR * Adriane Smith MD - 12/26/2012 8:58 [...] Smith MD PGY1 General Surgery Resident Pager: [phone] December 26, 2012 8:58 PM ICAL RESEARCH NURSE COORDINATOR * Meghann Liu MD - 12/26/2012 9:16 [...] therapy. Meghann Liu MD 12/26/2012 9:34 AM ICAL RESEARCH NURSE COORDINATOR * Omar Moreland MD - 12/26/2012 7:42 [...] Temp: 99.6 ??F 98.2 ??F Resp: 19 20 22 18 Weight: SpO2: 96% 99% 99% 98% Date 12/25/12 07 - 12/26/12 0659 12/26/12 07 - 12/27/12 0659 Shift 8641-9620 3201-9736 7210-8584 24 Hour Total 4590-3765 3551-8697 3388-0519 24 Hour Total I N T A [...] -D/C Basia Moreland MD 12/26/2012 7:42 AM ICAL RESEARCH NURSE COORDINATOR * Adriane Smith MD - 12/25/2012 11:46 PM CST Brief Pediatric Surgery Night Float Progress Note Admit Date: 12/23/2012 5:49 AM Pt noted to have elevated drain amylase/lipase. Transplant surgery recommends d/c'ing morphine KILN FIRER and switching to fentanyl KILN FIRER. Fentanyl KILN FIRER not available at [facility] so will write for fentanyl 25mcg [...] Smith MD PGY1 General Surgery Resident Pager: [phone] December 25, 2012 11:46 PM ICAL RESEARCH NURSE COORDINATOR * Shaye Chaudhari RN - 12/25/2012 11:35 PM CST Problem: Potential for Urinary Catheter-Associated Infection Goal: Signs and Symptoms of urinary catheter-associated infection are avoided Outcome: Ongoing No signs or symptoms of infection present Problem: Pain/Discomfort Pt on morphine KILN FIRER, able to receive 1mg q10min Goal: Patient [...] Patient continues to have vinson in place ICAL RESEARCH NURSE COORDINATOR * Kay Marc MD - 12/25/2012 1:27 [...] from yesterday- none today Current immuno: TAC 1. , Suggest: 1. If you believe Amylase [...] I am currently reviewing hisenormous transplant record [id number] See resident's note of 12/25/2012 for further details. Kay Marc MD ICAL RESEARCH NURSE COORDINATOR * Dannie Davila MD - 12/25/2012 7:47 [...] 0659 12/25/12 07 - 12/26/12 0659 Shift 8050-5998 5460-3739 4213-7681 24 Hour Total 3877-1213 5211-8621 4011-1758 24 Hour Total I N T A [...] -Encouraged increasing ambulation -Encouraged IS -Continue morphine KILN FIRER and PRN tylenol Dannie Davila MD 12/24/2012 7:47 AM ICAL RESEARCH NURSE COORDINATOR * Shaye Chaudhari RN - 12/25/2012 12:54 [...] skin breakdown Problem: Pain/Discomfort Pt on morphine KILN FIRER, able to receive 1mg q10min Goal: Patient exhibits reduced pain/discomfort as evidenced by pain scores Outcome: Ongoing Patient rates pain as tolerable. RN encouraged patient to utilize KILN FIRER if needed. Problem: Risk of VTE SCD???s in place Goal: Patient is free of signs and symptoms of VTE Outcome: Ongoing sequentials applied Problem: Anxiety Goal: Anxiety is at manageable level Outcome: Ongoing Patient expressed anxiety about NG tube Problem: Elimination Vinson catheter in place Goal: Elimination patterns are normal or improving Outcome: Ongoing Vinson catheter in place ICAL RESEARCH NURSE COORDINATOR * Shaye Chaudhari RN - 12/25/2012 12:46 [...] in. RN also encouraged patient to use KILN FIRER for pain. RN will continue to monitor [...] Smith MD PGY1 General Surgery Resident Pager: [phone] December 25, 2012 12:35 AM ICAL RESEARCH NURSE COORDINATOR * Oriana Gomez RN - 12/24/2012 6:44 PM CST Problem: Potential for Urinary Catheter-Associated Infection Goal: Normal urinary patterns are established within parameters of age and disease process Outcome: Ongoing Need to replace vinson cath after 8 hours without voiding after previous removal, bladder scan showed 380 in bladder. 475 out immediately after insertion. Problem: Pain/Discomfort Pt on morphine KILN FIRER, able to receive 1mg q10min Goal: Patient exhibits reduced pain/discomfort as evidenced by pain scores Outcome: Ongoing Morphine KILN FIRER. Pain continues to be at a 5 [...] has diminished bowel sounds, denies passing flatus ICAL RESEARCH NURSE COORDINATOR * Nick Hopper MD - 12/24/2012 8:46 [...] LFTs. Nick Hopper MD 12/24/2012 8:53 AM ICAL RESEARCH NURSE COORDINATOR * Dannie Davila MD - 12/24/2012 8:38 [...] 110 Temp: 100.8 ??F 101.6 ??F Resp: 13 Weight: SpO2: 95% 93% 98% Physical [...] -Encouraged IS -Please remove Vinson -Continue morphine KILN FIRER and PRN tylenol Dannie Davila MD 12/24/2012 8:38 AM ICAL RESEARCH NURSE COORDINATOR * Rashida Sandoval RN - 12/24/2012 7:06 AM CST Continue antibiotics for an additional 24 hours per surgery team as abd drain remains in place. Guera RN ICAL RESEARCH NURSE COORDINATOR * Adriane Smith MD - 12/23/2012 9:07 [...] op -will increase pain control to morphine social director 2mg with lockout of 15 minutes and [...] bed and use IS. Adriane Smith, PGY-1 [phone] Pt continuing to have tachycardia throughout the night. Given an additional 500cc NS bolus. Noted to have Tmax of 101.8. UA and urine culture sent. CXR obtained which was wnl. Pt was given tylenol suppository x 1 which brought temperature down to 100.8. Pain well controlled with increase in morphine KILN FIRER. Using IS hourly with assistance from RN. Drain output consistent and serosanguinous. UOP adequate. Adriane Smith, PGY-1 [phone] ICAL RESEARCH NURSE COORDINATOR * Ariadne Cardoza MD - 12/23/2012 2:31 PM CST PEDIATRIC CRITICAL CARE ATTENDING NOTE 12/23/2012 1400 PM to 2100 PM PICU # 1 POD 0 From Peds Surgery, previous notes in the chart, and Dr. 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 In [id number] , he was diagnosed with Idiopathic thrombocytopenic [...] kg (122 lb 1.9 oz) (12/23/12 0600) Patient Vitals for the past 6 hrs: [...] intubated. Component Name 08/11/10 0900 PHVENOUS 7.306 [id number] 57.2 DN8JCNING <30.0 [id number] 48.5 [id number] -- BEVENOUS 2.0 Circulatory System Skin: warm, [...] none Pain control: adequate Pain medications: Morphine KILN FIRER with 1 mg with 10 minute lockout. 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 Per review [...] open procedure. He had blood loss estimated xo8228 ml and received 2 units of PRBC's [...] control per Surgery, at this time morphine KILN FIRER without basal and 1 mg q10 bolus [...] infusion Wednesday 12/20. Melia Acevedo MD 12/23/2012 ICAL RESEARCH NURSE COORDINATOR documented in this encounter H&P Notes * Adriane Smith MD - 12/23/2012 3:36 AM CST [...] Pr dental surgery procedure 2011 Removal of Dunn teeth in dental office under sedation ??? [...] Hx ??? Marfan Syndrome Neg Hx ??? GA Neg Hx ??? Osteoporosis Neg Hx ??? [...] (14.40%*) * Growth percentiles are based on [facility] 2-20 Years data. There is no height [...] consult Adriane Smith MD 12/23/2012 3:37 AM ICAL RESEARCH NURSE COORDINATOR documented in this encounter Procedure Notes * Document, Scanned - 12/30/2012 6:39 AM CSTAssociated Order(s): PATHOLOGY/CYTOLOGY REPORT ORDER ICAL RESEARCH NURSE COORDINATOR documented in this encounter Consult Notes * [...] Hx ??? Marfan Syndrome Neg Hx ??? GA Neg Hx ??? Osteoporosis Neg Hx ??? [...] EXAMINATION: 4.68%ile based on CDC 2-20 Years [id number] data. BP 107/61 Pulse 82 Temp 97.8 ??F Resp 18 Wt 55.393 kg (122 lb 1.9 oz) BMI 18.72 kg/m2 HEENT: Atraumatic. Chest: Equal air entry bilaterally. Abdomen: Soft, tender at incision site, no site drainage, nondistended. Bowel sounds sluggish. REDEVELOPMENT MANAGER: No apparent focal deficits. Extremities: Warm, well [...] not hesitate to contact for any questions. ICAL RESEARCH NURSE COORDINATOR * Robert Zamora MD - 12/23/2012 2:51 [...] Pr dental surgery procedure 2011 Removal of Dunn teeth in dental office under sedation ??? [...] Robert Cameron MD ??? morphine 1 mg/ml KILN FIRER Intravenous KILN FIRER Robert Cameron MD ??? esomeprazole (NexIUM) injection [...] Hx ??? Marfan Syndrome Neg Hx ??? GA Neg Hx ??? Osteoporosis Neg Hx ??? [...] (4.68%*) * Growth percentiles are based on CDC 2-20 Years data. General Appearance: comfortable cooperative [...] Dr. Ian Zamora MD 12/23/2012 2:56 PM ICAL RESEARCH NURSE COORDINATOR * Kay Marc MD - 12/23/2012 2:51 PM CST See note for OR ICAL RESEARCH NURSE COORDINATOR documented in this encounter Nursing Notes * Katie Kay RN - 12/23/2012 8:15 AM CST Social Service consult ordered for Advance Directive ICAL RESEARCH NURSE COORDINATOR documented in this encounter OR Notes * [...] allograft. As he was transplanted prior to [facility], there was no operative records available [...] his immunosuppression and viral /bacterial prophylaxis. btn ICAL RESEARCH NURSE COORDINATOR * Operative - Gregory Fung MD - 12/23/2012 1:44 PM CST PEDIATRIC SURGERY OPERATIVE NOTE Date of Procedure: 12/23/2012 Patient name: Beka Nichols Preoperative diagnosis: Idiopathic Thrombocytopenic Purpura Postoperative diagnosis: Same Procedure performed: 1) Laparoscopic converted to open splenectomy 2) Repair of small bowel enterotomy Surgeon: Gregory Fung MD Chrome Worker: Nish Forde MD; Heena Marc MD; Hipolito Ardon MD; Anesthesia: General endotracheal anesthesia and Local anesthesia 0.5% bupivacaine Indications: This is a 17 y.o. male with ITP who is also s/p orthotopic liver transplant (second transplant in 1998). He has required IVIG and steroids to maintain his platelet count. Due to the recalcitrant nature of his ITP, his spool hauler is requesting a splenectomy. We have discussed [...] of the stomach after repositioning by the sample cutter. Attention was turned to the enterotomy. The previously placed silk suture was removed. We closed the defect transversely with interrupted 3-0 vicryl sutures. Following this, Lembert sutures with 3-0 silk were placed. The lumen was widely patent. A 10F da drain was then placed in the left [...] x2 Gregory Fung MD 12/28/2012 6:01 PM ICAL RESEARCH NURSE COORDINATOR documented in this encounter Miscellaneous Notes * Miscellaneous Scans - Document, Scanned - 12/30/2012 6:39 AM CST ICAL RESEARCH NURSE COORDINATOR * Miscellaneous Scans - Document, Scanned - 12/30/2012 6:39 AM CST ICAL RESEARCH NURSE COORDINATOR * Miscellaneous Scans - Document, Scanned - 12/30/2012 6:39 AM CST ICAL RESEARCH NURSE COORDINATOR documented in this encounter Plan of Treatment Not on file documented as of this encounter Procedures Procedure Name Priority Date/Time Associated Diagnosis Comments PATHOLOGY/CYTOLOGY REPORT ORDER 12/30/2012 6:39 AM CLINICAL RESEARCH NURSE COORDINATOR LIPASE FLUID Routine 12/28/2012 10:40 AM CLINICAL RESEARCH NURSE COORDINATOR AMYLASE FLUID Routine 12/28/2012 10:40 AM CLINICAL RESEARCH NURSE COORDINATOR LIPASE BLOOD Routine 12/28/2012 8:47 AM CLINICAL RESEARCH NURSE COORDINATOR AMYLASE BLOOD Routine 12/28/2012 8:47 AM CLINICAL RESEARCH NURSE COORDINATOR HEPATIC FUNCTION PANEL Pre-Op 12/28/2012 5:32 AM CLINICAL RESEARCH NURSE COORDINATOR LIPASE BLOOD AM Draw 12/28/2012 5:32 AM CLINICAL RESEARCH NURSE COORDINATOR AMYLASE BLOOD AM Draw 12/28/2012 5:32 AM CLINICAL RESEARCH NURSE COORDINATOR LIPASE FLUID Routine 12/28/2012 4:29 AM CLINICAL RESEARCH NURSE COORDINATOR AMYLASE FLUID Routine 12/28/2012 4:29 AM CLINICAL RESEARCH NURSE COORDINATOR TACROLIMUS LEVEL Routine 12/27/2012 7:05 AM CLINICAL RESEARCH NURSE COORDINATOR NADINE-BORREGO VIRUS PCR QUANT BLOOD/CSF Routine 12/27/2012 7:05 AM CLINICAL RESEARCH NURSE COORDINATOR HEPATIC FUNCTION PANEL Pre-Op 12/27/2012 7:05 AM CLINICAL RESEARCH NURSE COORDINATOR CROSSMATCH RBC LEUKOREDUCED Routine 12/27/2012 12:12 AM CLINICAL RESEARCH NURSE COORDINATOR CROSSMATCH RBC LEUKOREDUCED Routine 12/27/2012 12:12 AM CLINICAL RESEARCH NURSE COORDINATOR US ABDOMEN LTD W COMP DOPPLER STAT 12/26/2012 10:15 AM CLINICAL RESEARCH NURSE COORDINATOR Hypogammaglobulinemia (HCC) ITP (idiopathic thrombocytopenic purpura) Neutropenia associated with autoimmune disease (HCC) Cellulitis and abscess of face Lymphadenopathy History of liver transplant (HCC) Autoimmune hepatitis (HCC) Autoimmune hepatitis s/p liver transplant CYTOMEGALOVIRUS DNA RT-PCR QUANT AM Draw 12/26/2012 4:26 AM CLINICAL RESEARCH NURSE COORDINATOR HEPATIC FUNCTION PANEL Pre-Op 12/26/2012 4:26 AM CLINICAL RESEARCH NURSE COORDINATOR CYTOMEGALOVIRUS ANTIBODY IGG/IGM BLOOD Routine 12/25/2012 2:29 PM CLINICAL RESEARCH NURSE COORDINATOR HERPES VIRUS 6 ANTIBODY IGG Routine 12/25/2012 2:29 PM CLINICAL RESEARCH NURSE COORDINATOR HEPATIC FUNCTION PANEL Pre-Op 12/25/2012 2:29 PM CLINICAL RESEARCH NURSE COORDINATOR LIPASE BLOOD Routine 12/25/2012 11:05 AM CLINICAL RESEARCH NURSE COORDINATOR AMYLASE BLOOD Routine 12/25/2012 11:05 AM CLINICAL RESEARCH NURSE COORDINATOR LIPASE FLUID Routine 12/25/2012 10:33 AM CLINICAL RESEARCH NURSE COORDINATOR AMYLASE FLUID Routine 12/25/2012 10:33 AM CLINICAL RESEARCH NURSE COORDINATOR TACROLIMUS LEVEL Routine 12/25/2012 5:36 AM CLINICAL RESEARCH NURSE COORDINATOR CBC W/O DIFFERENTIAL AM Draw 12/25/2012 5:36 AM CLINICAL RESEARCH NURSE COORDINATOR HEPATIC FUNCTION PANEL Routine 12/24/2012 9:08 AM CLINICAL RESEARCH NURSE COORDINATOR CULTURE BLOOD Timed 12/24/2012 8:30 AM CLINICAL RESEARCH NURSE COORDINATOR CULTURE BLOOD Timed 12/24/2012 8:29 AM CLINICAL RESEARCH NURSE COORDINATOR DIFFERENTIAL MANUAL Routine 12/24/2012 5:36 AM CLINICAL RESEARCH NURSE COORDINATOR CBC W AUTO DIFFERENTIAL AM Draw 12/24/2012 5:36 AM CLINICAL RESEARCH NURSE COORDINATOR GLUCOSE - POINT OF CARE Routine 12/24/2012 5:32 AM CLINICAL RESEARCH NURSE COORDINATOR XR CHEST 1VW STAT 12/23/2012 11:29 PM CLINICAL RESEARCH NURSE COORDINATOR ITP (idiopathic thrombocytopenic purpura) CULTURE URINE STAT 12/23/2012 10:37 PM CLINICAL RESEARCH NURSE COORDINATOR URINALYSIS REFLEX TO MICROSCOPIC NO CULTURE STAT 12/23/2012 10:37 PM CLINICAL RESEARCH NURSE COORDINATOR DIFFERENTIAL MANUAL Routine 12/23/2012 10:25 PM CLINICAL RESEARCH NURSE COORDINATOR CBC W AUTO DIFFERENTIAL STAT 12/23/2012 10:25 PM CLINICAL RESEARCH NURSE COORDINATOR PREPARE PLATELET PHERESIS UNIT(S) Routine 12/23/2012 10:24 PM CLINICAL RESEARCH NURSE COORDINATOR PREPARE PLATELET PHERESIS UNIT(S) STAT 12/23/2012 10:24 PM CLINICAL RESEARCH NURSE COORDINATOR PT PTT PANEL STAT 12/23/2012 10:23 PM CLINICAL RESEARCH NURSE COORDINATOR BASIC METABOLIC PANEL (CALCIUM TOTAL) STAT 12/23/2012 7:43 PM CLINICAL RESEARCH NURSE COORDINATOR SPLENECTOMY 12/23/2012 3:30 PM CLINICAL RESEARCH NURSE COORDINATOR Primary thrombocytopenia, unspecified (HCC) Special Needs 5 day hospital stayLong term CG [id number] lap instruments LAPAROSCOPIC SPLENECTOMY 12/23/2012 3:30 PM CLINICAL RESEARCH NURSE COORDINATOR Primary thrombocytopenia, unspecified (HCC) Special Needs 5 day hospital stayLong term CG [id number] lap instruments DIFFERENTIAL MANUAL Routine 12/23/2012 2:54 PM CLINICAL RESEARCH NURSE COORDINATOR CBC W AUTO DIFFERENTIAL ZAHRA 12/23/2012 2:54 PM CLINICAL RESEARCH NURSE COORDINATOR CROSSMATCH RBC LEUKOREDUCED Routine 12/23/2012 2:09 PM CLINICAL RESEARCH NURSE COORDINATOR CULTURE MRSA Routine 12/23/2012 2:08 PM CLINICAL RESEARCH NURSE COORDINATOR CROSSMATCH RBC LEUKOREDUCED Routine 12/23/2012 1:02 PM CLINICAL RESEARCH NURSE COORDINATOR CROSSMATCH RBC LEUKOREDUCED Routine 12/23/2012 1:02 PM CLINICAL RESEARCH NURSE COORDINATOR CROSSMATCH RBC LEUKOREDUCED Routine 12/23/2012 1:02 PM CLINICAL RESEARCH NURSE COORDINATOR BLOOD GASES NATHAN + LYTES GLUC CA+ HH (ISTAT) Routine 12/23/2012 11:50 AM CLINICAL RESEARCH NURSE COORDINATOR PATHOLOGY TISSUE EXAM (STL) STAT 12/23/2012 10:41 AM CLINICAL RESEARCH NURSE COORDINATOR Hypogammaglobulinemia (HCC) ITP (idiopathic thrombocytopenic purpura) Neutropenia associated with autoimmune disease (HCC) Cellulitis and abscess of face Lymphadenopathy History of liver transplant (HCC) Autoimmune hepatitis (HCC) CBC W AUTO DIFFERENTIAL STAT 12/23/2012 6:53 AM CLINICAL RESEARCH NURSE COORDINATOR Hypogammaglobulinemia (HCC) CROSSMATCH RBC LEUKOREDUCED STAT 12/23/2012 6:53 AM CLINICAL RESEARCH NURSE COORDINATOR CROSSMATCH RBC LEUKOREDUCED Routine 12/23/2012 6:53 AM CLINICAL RESEARCH NURSE COORDINATOR CROSSMATCH RBC LEUKOREDUCED Routine 12/23/2012 6:53 AM CLINICAL RESEARCH NURSE COORDINATOR CROSSMATCH RBC LEUKOREDUCED Routine 12/23/2012 6:53 AM CLINICAL RESEARCH NURSE COORDINATOR BLOOD TYPE ABO+ RH PANEL Routine 12/23/2012 6:53 AM CLINICAL RESEARCH NURSE COORDINATOR ANTIBODY SCREEN Routine 12/23/2012 6:53 AM CLINICAL RESEARCH NURSE COORDINATOR documented in this encounter Results * LIPASE FLUID (01/02/2013 8:35 AM CLINICAL RESEARCH NURSE COORDINATOR) Lipase Fluid 80 U/L 01/02/2013 9:37 AM CLINICAL RESEARCH NURSE COORDINATOR [facility] Fluid Type Peritoneal 01/02/2013 9:37 AM [facility] Fluid specimen (specimen) PERITONEAL FLUID / Unknown 01/02/2013 8:35 AM CLINICAL RESEARCH NURSE COORDINATOR 01/02/2013 8:40 AM CLINICAL RESEARCH NURSE COORDINATOR Narrative [facility] - 01/02/2013 9:37 AM CLINICAL RESEARCH NURSE COORDINATOR Fluid Disclaimer No reference ranges are available for this specimen type, results may be inaccurate, assay designed for serum/plasma or urine. Assay was performed at client? s request on a suboptimal specimen type. Test results should be interpreted with caution. Omar Moreland MD LAB - BODY FLUID ORD ERABLES [facility] [address] [facility] [place] [address] * AMYLASE FLUID (01/02/2013 8:35 AM CLINICAL RESEARCH NURSE COORDINATOR) Amylase Fluid 41 U/L 01/02/2013 9:36 AM [facility] Fluid specimen (specimen) PERITONEAL FLUID / Unknown 01/02/2013 8:35 AM CLINICAL RESEARCH NURSE COORDINATOR 01/02/2013 8:40 AM CLINICAL RESEARCH NURSE COORDINATOR Narrative [facility] - 01/02/2013 9:36 AM [facility] Fluid Disclaimer No reference ranges are available for this specimen type, results may be inaccurate, assay designed for serum/plasma or urine. Assay was performed at client? s request on a suboptimal specimen type. Test results should be interpreted with caution. Omar Moreland MD LAB - BODY FLUID ORD ERABLES Performing Organization Address City/[facility]/ZIP Co de Phone Number [facility] [address] [place] [address] * LIPASE BLOOD (01/02/2013 8:17 AM CLINICAL RESEARCH NURSE COORDINATOR) Lipase 48 10 - 220 U/L 01/02/2013 9:26 AM [facility] Blood specimen (specimen) BLOOD SPECIMEN / Unknown 01/02/2013 8:17 AM CLINICAL RESEARCH NURSE COORDINATOR 01/02/2013 8:36 AM CLINICAL RESEARCH NURSE COORDINATOR Omar Moreland MD LAB - CHEMISTRY ORDE BETTY Performing Organization Address [facility] Co de Phone Number [facility] [address] [place] [address] * AMYLASE BLOOD (01/02/2013 8:17 AM CLINICAL RESEARCH NURSE COORDINATOR) Amylase 56 25 - 125 U/L 01/02/2013 9:26 AM [facility] Blood specimen (specimen) BLOOD SPECIMEN / Unknown 01/02/2013 8:17 AM CLINICAL RESEARCH NURSE COORDINATOR 01/02/2013 8:36 AM CLINICAL RESEARCH NURSE COORDINATOR Omar Moreland MD LAB - CHEMISTRY ORDE RABJIM Performing Organization Address [facility] Co de Phone Number [facility] [address] [place] [address] * TACROLIMUS LEVEL (01/02/2013 8:17 AM CLINICAL RESEARCH NURSE COORDINATOR) Tacrolimus 3.6 2.0 - 15.0 ng/mL 01/02/2013 11:50 AM CLINICAL RESEARCH NURSE COORDINATOR [facility] Blood specimen (specimen) BLOOD SPECIMEN / Unknown 01/02/2013 8:17 AM CLINICAL RESEARCH NURSE COORDINATOR 01/02/2013 8:36 AM CLINICAL RESEARCH NURSE COORDINATOR Narrative [facility] - 01/02/2013 11:50 AM CLINICAL RESEARCH NURSE COORDINATOR Tacrolimus Information: Nephrology and Cardiology: 3.0-12.0 ng/mL ?GI: 2.0-15.0 ng/mL Omar Moreland MD LAB - THERAPEUTIC DR MCCLELLAN MONITORING ORDERABLES [facility] [address] [facility] [place] [address] * US ABDOMEN LIMITED (01/02/2013 8:10 AM CLINICAL RESEARCH NURSE COORDINATOR) Anatomical Region Laterality Modality Abdomen Ultrasound 01/02/2013 8:18 AM CLINICAL RESEARCH NURSE COORDINATOR Impressions 01/02/2013 8:18 AM CLINICAL RESEARCH NURSE COORDINATOR No evidence of significant left flank fluid with a drain in place as described above. Narrative 01/02/2013 8:18 AM CLINICAL RESEARCH NURSE COORDINATOR Survey sonogram of the abdomen dated Jan [...] place as described above. Omar Moreland MD US ORDERABLES * PATHOLOGY/CYTOLOGY REPORT ORDER (12/30/2012 6:39 AM CLINICAL RESEARCH NURSE COORDINATOR) Narrative 12/30/2012 6:39 AM CLINICAL RESEARCH NURSE COORDINATOR Procedure Note Document, Scanned - 12/30/2012 6:39 AM CST Scanned Document LAB - PATHOLOGY/CYTO LOGY ORDERABLES * AMYLASE FLUID (12/28/2012 10:40 AM CLINICAL RESEARCH NURSE COORDINATOR) Amylase Fluid 56 U/L 12/28/2012 6:23 PM [facility] Fluid Type 12/28/2012 6:23 PM [facility] Comment:tati drain fluid Fluid specimen (specimen) BODY FLUID SPECIMEN / Unknown 12/28/2012 10:40 AM CLINICAL RESEARCH NURSE COORDINATOR 12/28/2012 6:21 PM [facility] - 12/28/2012 6:23 PM [facility] Fluid Disclaimer No reference ranges are available for this specimen type, results may be inaccurate, assay designed for serum/plasma or urine. Assay was performed at client? s request on a suboptimal specimen type. Test results should be interpreted with caution. Dannie Davila MD LAB - BODY FLUID ORD ERABLES Performing Organization Address City/[facility] Co de Phone Number [facility] [address] [place] [address] * LIPASE FLUID (12/28/2012 10:40 AM CLINICAL RESEARCH NURSE COORDINATOR) Lipase Fluid 137 U/L 12/28/2012 6:25 PM [facility] Fluid Type 12/28/2012 6:25 PM [facility] Comment:TATI drain fluid Fluid specimen (specimen) BODY FLUID SPECIMEN / Unknown 12/28/2012 10:40 AM CLINICAL RESEARCH NURSE COORDINATOR 12/28/2012 6:21 PM [facility] - 12/28/2012 6:25 PM [facility] Fluid Disclaimer No reference ranges are available for this specimen type, results may be inaccurate, assay designed for serum/plasma or urine. Assay was performed at client? s request on a suboptimal specimen type. Test results should be interpreted with caution. Dannie Davila MD LAB - BODY FLUID ORD ERABLES [facility] [address] [place] [address] * AMYLASE BLOOD (12/28/2012 8:47 AM CLINICAL RESEARCH NURSE COORDINATOR) [facility] Amylase 62 25 - 125 U/L 12/28/2012 10:06 AM [facility] Blood specimen (specimen) BLOOD SPECIMEN / Unknown 12/28/2012 8:47 AM CLINICAL RESEARCH NURSE COORDINATOR 12/28/2012 8:58 AM CLINICAL RESEARCH NURSE COORDINATOR Dannie Davila MD LAB - CHEMISTRY ORDKleber HERNÁNDEZ Performing Organization Address [facility]/ZIP Co de Phone Number [facility] [address] [place] [address] * LIPASE BLOOD (12/28/2012 8:47 AM CLINICAL RESEARCH NURSE COORDINATOR) [facility] Lipase 47 10 - 220 U/L 12/28/2012 10:08 AM [facility] Blood specimen (specimen) BLOOD SPECIMEN / Unknown 12/28/2012 8:47 AM CLINICAL RESEARCH NURSE COORDINATOR 12/28/2012 8:58 AM [facility] Dannie Davila MD LAB - CHEMISTRY MACIE HERNÁNDEZ Performing Organization Address [facility] Co de Phone Number [facility] [address] [place] [address] * (ABNORMAL) HEPATIC FUNCTION PANEL (12/28/2012 5:32 AM CLINICAL RESEARCH NURSE COORDINATOR) [facility] Alkaline Phosphatase 103 39 - 139 U/L 12/28/2012 6:26 AM [facility] ALT 45 6 - 46 U/L 12/28/2012 6:26 AM [facility] AST 52(H) 8 - 42 U/L 12/28/2012 6:26 AM [facility] Protein Total 7.4 6.3 - 8.2 gm/dL 12/28/2012 6:26 AM [facility] Albumin 3.3 3.3 - 4.9 gm/dL 12/28/2012 6:26 AM [facility] Bilirubin Total 0.3 0.3 - 1.2 mg/dL 12/28/2012 6:26 AM [facility] Bilirubin Direct 0.10(L) 0.11 - 0.64 mg/dL 12/28/2012 6:26 AM CLINICAL RESEARCH NURSE COORDINATOR [facility] Blood specimen (specimen) BLOOD SPECIMEN / Unknown 12/28/2012 5:32 AM CLINICAL RESEARCH NURSE COORDINATOR 12/28/2012 5:43 AM CLINICAL RESEARCH NURSE COORDINATOR Kay Marc MD LAB - CHEMISTR Y ORDERABLES Performing Organization Address [facility] Co de Phone Number [facility] [address] [place] [address] * LIPASE BLOOD (12/28/2012 5:32 AM CLINICAL RESEARCH NURSE COORDINATOR) Lipase 55 10 - 220 U/L 12/28/2012 6:24 AM [facility] Blood specimen (specimen) BLOOD SPECIMEN / Unknown 12/28/2012 5:32 AM CLINICAL RESEARCH NURSE COORDINATOR 12/28/2012 5:43 AM CLINICAL RESEARCH NURSE COORDINATOR Dannie Davila MD LAB - CHEMISTRY MACIE HERNÁNDEZ Performing Organization Address [facility] de Phone Number [facility] [address] [place] [phone] * (ABNORMAL) AMYLASE BLOOD (12/28/2012 5:32 AM CLINICAL RESEARCH NURSE COORDINATOR) Amylase 157(H) 25 - 125 U/L 12/28/2012 6:26 AM CLINICAL RESEARCH NURSE COORDINATOR [facility] Comment:~moderately hemolyze d Blood specimen (specimen) BLOOD SPECIMEN / Unknown 12/28/2012 5:32 AM CLINICAL RESEARCH NURSE COORDINATOR 12/28/2012 5:43 AM CLINICAL RESEARCH NURSE COORDINATOR Dannie Davila MD LAB - CHEMISTRY MACIE HERNÁNDEZ Performing Organization Address [facility] Co de Phone Number [facility] [address] [place] [address] * LIPASE FLUID (12/28/2012 4:29 AM CLINICAL RESEARCH NURSE COORDINATOR) Lipase Fluid 158 U/L 12/28/2012 5:27 AM [facility] Fluid specimen (specimen) BODY FLUID SPECIMEN / Unknown 12/28/2012 4:29 AM CLINICAL RESEARCH NURSE COORDINATOR 12/28/2012 4:42 AM CLINICAL RESEARCH NURSE COORDINATOR Narrative [facility] - 12/28/2012 5:27 AM [facility] Fluid Disclaimer No reference ranges are available for this specimen type, results may be inaccurate, assay designed for serum/plasma or urine. Assay was performed at client? s request on a suboptimal specimen type. Test results should be interpreted with caution. Dannie aDvila MD LAB - BODY FLUID ORD ERABLES Performing Organization Address [facility] Co de Phone Number [facility] [address] [place] [address] * AMYLASE FLUID (12/28/2012 4:29 AM [facility]) Amylase Fluid 59 U/L 12/28/2012 5:27 AM [facility] Fluid specimen (specimen) BODY FLUID SPECIMEN / Unknown 12/28/2012 4:29 AM CLINICAL RESEARCH NURSE COORDINATOR 12/28/2012 4:42 AM [facility] - 12/28/2012 5:27 AM [facility] Fluid Disclaimer No reference ranges are available for this specimen type, results may be inaccurate, assay designed for serum/plasma or urine. Assay was performed at client? s request on a suboptimal specimen type. Test results should be interpreted with caution. Dannie Davila MD LAB - BODY FLUID ORD ERABLES Performing Organization Address [facility] de Phone Number [facility] [address] [place] [address] * (ABNORMAL) HEPATIC FUNCTION PANEL (12/27/2012 7:05 AM [facility]) Alkaline Phosphatase 109 39 - 139 U/L 12/27/2012 8:03 AM [facility] ALT 59(H) 6 - 46 U/L 12/27/2012 8:03 AM [facility] AST 48(H) 8 - 42 U/L 12/27/2012 8:03 AM [facility] Protein Total 6.4 6.3 - 8.2 gm/dL 12/27/2012 8:03 AM [facility] Albumin 3.3 3.3 - 4.9 gm/dL 12/27/2012 8:03 AM [facility] Bilirubin Total 0.4 0.3 - 1.2 mg/dL 12/27/2012 8:03 AM [facility] Bilirubin Direct 0.23 0.11 - 0.64 mg/dL 12/27/2012 8:03 AM [facility] Blood specimen (specimen) BLOOD SPECIMEN / Unknown 12/27/2012 7:05 AM [facility] 12/27/2012 7:14 AM [facility] Kay Marc MD LAB - CHEMISTR Y ORDERABLES Performing Organization Address City/State/[facility] Co de Phone Number [facility] [address] [place] [address] * (ABNORMAL) NADINE-BAR VIRUS PCR QUANTITATIVE BLOOD (12/27/2012 7:05 AM [facility]) Nadine-Borrego Virus DNA PCR Quantitative POSITIVE for EBV DNA but below level of accurate quantitatio n(A) No EBV DNA detected 12/28/2012 7:38 AM [facility] Nadine-Borrego DNA Number copies/mL 2,721 copies/mL 12/28/2012 7:38 AM [facility] Nadine-Borrego RAGHAV Quant log 10 copies/mL 3.43 log 10 copies/mL 12/28/2012 7:38 AM [facility] Blood specimen (specimen) BLOOD SPECIMEN / Unknown 12/27/2012 7:05 AM [facility] 12/27/2012 7:13 AM [facility] Narrative [facility] - 12/28/2012 7:38 AM [facility] This assay has a lower limit [...] ??EBV levels can vary by ??specimen type: [facility] uses whole blood which is more [...] MICROBIOLOGY O RDERABLES Performing Organization Address [facility] de Phone Number [facility] [address] [place], [place] [phone] * TACROLIMUS LEVEL (12/27/2012 7:05 AM [facility]) [facility] Tacrolimus 11.3 2.0 - 15.0 ng/mL 12/27/2012 12:41 PM [facility] Blood specimen (specimen) BLOOD SPECIMEN / Unknown 12/27/2012 7:05 AM [facility] 12/27/2012 7:14 AM [facility] Narrative [facility] - 12/27/2012 12:41 PM [facility] Tacrolimus Information: Nephrology and Cardiology: 3.0-12.0 ng/mL ?GI: 2.0-15.0 ng/mL Felipe Mon MD LAB - THERAPEUTIC DR MCCLELLAN MONITORING ORDERABLES Performing Organization Address [facility] de Phone Number [facility] [address] [place] [address] * CROSSMATCH RBC (12/27/2012 12:12 AM [facility]) [facility] Unit Donor # [id number] -O 12/27/2012 12:12 AM [facility] Product Code E0420 12/27/2012 12:12 AM [facility] Unit Description E0420 RBC, IRR, LR, -5 12/27/2012 12:12 AM [facility] ABO Donor Type A 12/27/2012 12:12 AM [facility] Rh Type Unit POS 12/27/2012 12:12 AM [facility] Crossmatch Interpretation Compatible 12/27/2012 12:12 AM [facility] Unit Status Returned 12/27/2012 12:12 AM [facility] Miscellaneous samples (specimen) BLOOD SPECIMEN / Unknown 12/23/2012 12:55 PM CLINICAL RESEARCH NURSE COORDINATOR Gregory Fung MD LAB - BLOOD BANK OR DERABLES [facility] * CROSSMATCH RBC (12/27/2012 12:12 AM CLINICAL RESEARCH NURSE COORDINATOR) [facility] Unit Donor # [id number] -M 12/27/2012 12:12 AM [facility] Product Code E0420 12/27/2012 12:12 AM [facility] Unit Description E0420 RBC, IRR, LR, -5 12/27/2012 12:12 AM [facility] ABO Donor Type A 12/27/2012 12:12 AM [facility] Rh Type Unit POS 12/27/2012 12:12 AM [facility] Crossmatch Interpretation Compatible 12/27/2012 12:12 AM [facility] Unit Status Returned 12/27/2012 12:12 AM [facility] Miscellaneous samples (specimen) BLOOD SPECIMEN / Unknown 12/23/2012 11:51 AM CLINICAL RESEARCH NURSE COORDINATOR Gregory Fung MD LAB - BLOOD BANK OR DERABLES [facility] * US LIVER W DOPPLER PORTAL VEIN (12/26/2012 10:15 AM CLINICAL RESEARCH NURSE COORDINATOR) Anatomical Region Laterality Modality Ultrasound 12/26/2012 10:4 3 AM CLINICAL RESEARCH NURSE COORDINATOR Impressions 12/26/2012 10:43 AM CLINICAL RESEARCH NURSE COORDINATOR Patent portal vein with appropriate directional flow. Narrative 12/26/2012 10:43 AM CLINICAL RESEARCH NURSE COORDINATOR Ultrasound of the liver with Doppler performed [...] flow. Kay Marc MD ORDERABLES * (ABNORMAL) HEPATIC FUNCTION PANEL (12/26/2012 4:26 AM CLINICAL RESEARCH NURSE COORDINATOR) Alkaline Phosphatase 100 39 - 139 U/L 12/26/2012 5:06 AM [facility] ALT 84(H) 6 - 46 U/L 12/26/2012 5:06 AM [facility] AST 73(H) 8 - 42 U/L 12/26/2012 5:06 AM [facility] Protein Total 6.4 6.3 - 8.2 gm/dL 12/26/2012 5:06 AM [facility] Albumin 3.3 3.3 - 4.9 gm/dL 12/26/2012 5:06 AM [facility] Bilirubin Total 0.5 0.3 - 1.2 mg/dL 12/26/2012 5:06 AM [facility] Bilirubin Direct 0.24 0.11 - 0.64 mg/dL 12/26/2012 5:06 AM [facility] Blood specimen (specimen) BLOOD SPECIMEN / Unknown 12/26/2012 4:26 AM [facility] 12/26/2012 4:40 AM CLINICAL RESEARCH NURSE COORDINATOR Kay Marc MD LAB - CHEMISTR Y ORDERABLES Performing Organization Address [facility] Co de Phone Number [facility] [address] [place] [address] * CMV DNA REAL-TIME PCR QUANTITATIVE (12/26/2012 4:26 AM [facility]) Pathologist [facility] Cytomegalovirus DNA Quantitative PCR copies/ml No Cytomegalovirus DNA detected by PCR No Cytomegalovirus DNA detected by PCR 3 7:21 AM [facility] Blood specimen (specimen) BLOOD SPECIMEN / Unknown 12/26/2012 4:26 AM [facility] 12/26/2012 4:40 AM CLINICAL RESEARCH NURSE COORDINATOR Kay Marc MD LAB - MICROBIO LOGY ORDERABLES Performing Organization Address [facility] Co de Phone Number [facility] [address] [place] [phone] * (ABNORMAL) HEPATIC FUNCTION PANEL (12/25/2012 2:29 PM CLINICAL RESEARCH NURSE COORDINATOR) Pathologist [facility] Alkaline Phosphatase 80 39 - 139 U/L 12/25/2012 3:18 PM [facility] ALT 95(H) 6 - 46 U/L 12/25/2012 3:18 PM [facility] AST 88(H) 8 - 42 U/L 12/25/2012 3:18 PM [facility] Protein Total 5.8(L) 6.3 - 8.2 gm/dL 12/25/2012 3:18 PM CLINICAL RESEARCH NURSE COORDINATOR [facility] Albumin 2.9(L) 3.3 - 4.9 gm/dL 12/25/2012 3:18 PM [facility] Bilirubin Total 0.6 0.3 - 1.2 mg/dL 12/25/2012 3:18 PM [facility] Bilirubin Direct 0.31 0.11 - 0.64 mg/dL 12/25/2012 3:18 PM [facility] Blood specimen (specimen) BLOOD SPECIMEN / Unknown 12/25/2012 2:29 PM CLINICAL RESEARCH NURSE COORDINATOR 12/25/2012 2:45 PM CLINICAL RESEARCH NURSE COORDINATOR Kay Marc MD LAB - CHEMISTR Y ORDERABLES Performing Organization Address City/State/[facility] Co de Phone Number [facility] [address] [facility] [place] [address] * (ABNORMAL) [id number] ANTIBODY IGG (12/25/2012 2:29 PM CLINICAL RESEARCH NURSE COORDINATOR) Herpesvirus 6 Antibody IgG 5.93(H) <=0.89 IV 12/27/2012 6:30 PM [facility] Comment: INTERPRETIVE INFORMATION: Herpesvirus 6 (HHV-6) Ab, [...] developed and its performance characteristics determined by [employer]. The U.S. Food and Drug Administration has not approved or cleared this test; however, FDA clearance or approval is not currently required for clinical use. The results are not intended to be used as the sole means for clinical diagnosis or patient management decisions. Blood specimen (specimen) BLOOD SPECIMEN / Unknown 12/25/2012 2:29 PM CLINICAL RESEARCH NURSE COORDINATOR 12/25/2012 2:45 PM CLINICAL RESEARCH NURSE COORDINATOR Kay Marc MD LAB - SEROLOGY ORDERABLES Performing Organization Address City/[facility]/ZIP Co de Phone Number [facility] [employer] [address] [place] [address] * (ABNORMAL) CMV ANTIBODY IGG IGM BLOOD PANEL (12/25/2012 2:29 PM CLINICAL RESEARCH NURSE COORDINATOR) Pathologist [facility] Cytomegalovirus Antibody IgG 4.6(H) <0.9 12/28/2012 3:03 PM CLINICAL RESEARCH NURSE COORDINATOR [facility] Cytomegalovirus Antibody IgM 0.3 <0.9 12/28/2012 3:03 PM [facility] Blood specimen (specimen) BLOOD SPECIMEN / Unknown 12/25/2012 2:29 PM CLINICAL RESEARCH NURSE COORDINATOR 12/25/2012 2:45 PM CLINICAL RESEARCH NURSE COORDINATOR Narrative [facility] - 12/28/2012 3:03 PM CLINICAL RESEARCH NURSE COORDINATOR ? <0.9 Negative ??0.9 - 1.0 Equivocal ?>=1.1 Positive Kay Marc MD LAB - CHEMISTR Y ORDERABLES [facility] [address] [place] [address] * LIPASE BLOOD (12/25/2012 11:05 AM CLINICAL RESEARCH NURSE COORDINATOR) Pathologist [facility] Lipase 22 10 - 220 U/L 12/25/2012 11:53 AM CLINICAL RESEARCH NURSE COORDINATOR [facility] Blood specimen (specimen) BLOOD SPECIMEN / Unknown 12/25/2012 11:05 AM CLINICAL RESEARCH NURSE COORDINATOR 12/25/2012 11:07 AM CLINICAL RESEARCH NURSE COORDINATOR Dannie Davila MD LAB - [facility] Performing Organization Address [facility] Co de Phone Number [facility] [address] [place] [address] * AMYLASE BLOOD (12/25/2012 11:05 AM CLINICAL RESEARCH NURSE COORDINATOR) Amylase 35 25 - 125 U/L 12/25/2012 11:53 AM CLINICAL RESEARCH NURSE COORDINATOR [facility] Blood specimen (specimen) BLOOD SPECIMEN / Unknown 12/25/2012 11:05 AM CLINICAL RESEARCH NURSE COORDINATOR 12/25/2012 11:07 AM CLINICAL RESEARCH NURSE COORDINATOR Dannie Davila MD LAB - CHEMISTRY MACIE HERNÁNDEZ Performing Organization Address [facility] de Phone Number [facility] [address] [place] [address] * LIPASE FLUID (12/25/2012 10:33 AM CLINICAL RESEARCH NURSE COORDINATOR) Lipase Fluid 747 U/L 12/25/2012 11:52 AM [facility] Fluid specimen (specimen) BODY FLUID SPECIMEN / Unknown 12/25/2012 10:33 AM CLINICAL RESEARCH NURSE COORDINATOR 12/25/2012 11:07 AM CLINICAL RESEARCH NURSE COORDINATOR Narrative [facility] - 12/25/2012 11:52 AM [facility] Fluid Disclaimer No reference ranges are available for this specimen type, results may be inaccurate, assay designed for serum/plasma or urine. Assay was performed at client? s request on a suboptimal specimen type. Test results should be interpreted with caution. Dannie Davila MD LAB - BODY FLUID GRACE MCCORMICK Performing Organization Address [facility] Co de Phone Number [facility] [address] [place] [address] * AMYLASE FLUID (12/25/2012 10:33 AM CLINICAL RESEARCH NURSE COORDINATOR) Amylase Fluid 132 U/L 12/25/2012 11:52 AM [facility] Fluid specimen (specimen) BODY FLUID SPECIMEN / Unknown 12/25/2012 10:33 AM CLINICAL RESEARCH NURSE COORDINATOR 12/25/2012 11:07 AM CLINICAL RESEARCH NURSE COORDINATOR Narrative [facility] - 12/25/2012 11:52 AM [facility] Fluid Disclaimer No reference ranges are available for this specimen type, results may be inaccurate, assay designed for serum/plasma or urine. Assay was performed at client? s request on a suboptimal specimen type. Test results should be interpreted with caution. Dannie Davila MD LAB - BODY FLUID ORD ERABLES Performing Organization Address City/[facility]/ZIP Co de Phone Number [facility] [address] [place] [phone] * (ABNORMAL) CBC W/O DIFFERENTIAL (12/25/2012 5:36 AM [facility]) WBC 19.9(H) 4.4 - 10.7 x10^9/L 12/25/2012 6:06 AM [facility] RBC 3.62(L) 3.80 - 5.40 x10^12/L 12/25/2012 6:06 AM [facility] Hemoglobin 11.0(L) 12.0 - 17.6 g/dL 12/25/2012 6:06 AM [facility] Hematocrit 31.2(L) 35.2 - 51.7 % 12/25/2012 6:06 AM [facility] MCV 86.2 80.7 - 98.3 fl 12/25/2012 6:06 AM [facility] MCH 30.4 26.7 - 34.0 pg 12/25/2012 6:06 AM [facility] MCHC 35.3 30.8 - 35.9 gm/dL 12/25/2012 6:06 AM [facility] Platelet Count 283 153 - 416 x10^9/L 12/25/2012 6:06 AM [facility] RDW-CV 15.1(H) 12.1 - 14.9 % 12/25/2012 6:06 AM [facility] MPV 10.3 9.4 - 12.9 fl 12/25/2012 6:06 AM [facility] Blood specimen (specimen) BLOOD SPECIMEN / Unknown 12/25/2012 5:36 AM CLINICAL RESEARCH NURSE COORDINATOR 12/25/2012 5:46 AM CLINICAL RESEARCH NURSE COORDINATOR Adriane Smith MD LAB - HEMATOLOGY O RDERABLES Performing Organization Address City/[facility]/ZIP Co de Phone Number [facility] [address] [place] [address] * TACROLIMUS LEVEL (12/25/2012 5:36 AM [facility]) Tacrolimus 7.7 ng/mL 12/25/2012 12:25 PM [facility] Blood specimen (specimen) BLOOD SPECIMEN / Unknown 12/25/2012 5:36 AM CLINICAL RESEARCH NURSE COORDINATOR 12/25/2012 5:46 AM [facility] Narrative [facility] - 12/25/2012 12:25 PM [facility] Tacrolimus Information: Nephrology and Cardiology: 3.0-12.0 ng/mL ?GI: 2.0-15.0 ng/mL Dannie Davila MD LAB - THERAPEUTIC DR MCCLELLAN MONITORING ORDERABLES Performing Organization Address City/[facility]/ZIP Co de Phone Number [facility] [address] [place] [address] * (ABNORMAL) HEPATIC FUNCTION PANEL (12/24/2012 9:08 AM [facility]) Pathologist [facility] Alkaline Phosphatase 93 39 - 139 U/L 12/24/2012 10:00 AM [facility] ALT 151(H) 6 - 46 U/L 12/24/2012 10:00 AM [facility] AST 185(H) 8 - 42 U/L 12/24/2012 10:00 AM [facility] Protein Total 5.7(L) 6.3 - 8.2 gm/dL 12/24/2012 10:00 AM [facility] Albumin 3.0(L) 3.3 - 4.9 gm/dL 12/24/2012 10:00 AM [facility] Bilirubin Total 0.6 0.3 - 1.2 mg/dL 12/24/2012 10:00 AM [facility] Bilirubin Direct 0.38 0.11 - 0.64 mg/dL 12/24/2012 10:00 AM [facility] Blood specimen (specimen) BLOOD SPECIMEN / Unknown 12/24/2012 9:08 AM CLINICAL RESEARCH NURSE COORDINATOR 12/24/2012 9:34 AM CLINICAL RESEARCH NURSE COORDINATOR Dannie Davila MD LAB - CHEMISTRY MACIE HERNÁNDEZ [facility] [address] [facility] [place] [address] * CULTURE BLOOD (12/24/2012 8:30 AM CLINICAL RESEARCH NURSE COORDINATOR) Culture SEE BELOW 12/30/2012 6:35 AM CLINICAL RESEARCH NURSE COORDINATOR [facility] INTERFACES Comment: - Final - No growth Blood specimen (specimen) PERIPHERAL BLOOD / Unknown 12/24/2012 8:30 AM CLINICAL RESEARCH NURSE COORDINATOR 12/24/2012 9:41 AM CLINICAL RESEARCH NURSE COORDINATOR Robert Cameron MD LAB - MICROBIOLOGY O RDJACE Performing Organization Address City/[facility] Co de Phone Number [facility] INTERFACES [address] [place] [address], [facility] * CULTURE BLOOD (12/24/2012 8:29 AM CLINICAL RESEARCH NURSE COORDINATOR) Culture SEE BELOW 12/30/2012 6:35 AM CLINICAL RESEARCH NURSE COORDINATOR [facility] INTERFACES Comment: - Final - No growth Blood specimen (specimen) PERIPHERAL BLOOD / Unknown 12/24/2012 8:29 AM CLINICAL RESEARCH NURSE COORDINATOR 12/24/2012 9:40 AM CLINICAL RESEARCH NURSE COORDINATOR Robert Caemron MD LAB - MICROBIOLOGY O SARAH Performing Organization Address City/[facility] Co de Phone Number [facility] INTERFACES [address] [place] [address], [facility] * (ABNORMAL) DIFFERENTIAL MANUAL (12/24/2012 5:36 AM CLINICAL RESEARCH NURSE COORDINATOR) WBC Auto 20.4(H) 4.4 - 10.7 X(10)9/L 12/24/2012 6:21 AM [facility] Neutrophil % Manual 84(H) 44 - 73 % 12/24/2012 6:21 AM [facility] Lymphocytes % Manual 5(L) 20 - 43 % 12/24/2012 6:21 AM [facility] Monocytes % Manual 9 5 - 13 % 2012 6:21 AM [facility] Band % Manual 2 0 - 11 % 12/24/2012 6:21 AM [facility] Cells Counted 100 # cells 12/24/2012 6:21 AM [facility] Platelet Estimation Normal 12/24/2012 6:21 AM [facility] Anisocytosis Slight 12/24/2012 6:21 AM [facility] Poikilocytosis Slight 12/24/2012 6:21 AM [facility] Toxic Granulation 1+ 013 6:21 AM [facility] Blood specimen (specimen) BLOOD SPECIMEN / Unknown 12/24/2012 5:36 AM [facility] 12/24/2012 5:37 AM [facility] Robert Cameron MD LAB - HEMATOLOGY ORD ERABLES [facility] [address] [place] [address] * (ABNORMAL) CBC W AUTO DIFFERENTIAL (12/24/2012 5:36 AM [facility]) WBC 20.4(H) 4.4 - 10.7 x10^9/L 12/24/2012 6:21 AM [facility] RBC 3.64(L) 3.80 - 5.40 x10^12/L 12/24/2012 6:21 AM [facility] Hemoglobin 11.2(L) 12.0 - 17.6 g/dL 12/24/2012 6:21 AM [facility] Hematocrit 31.4(L) 35.2 - 51.7 % 12/24/2012 6:21 AM [facility] MCV 86.3 80.7 - 98.3 fl 12/24/2012 6:21 AM [facility] MCH 30.8 26.7 - 34.0 pg 12/24/2012 6:21 AM [facility] MCHC 35.7 30.8 - 35.9 gm/dL 12/24/2012 6:21 AM [facility] RDW-CV 15.7(H) 12.1 - 14.9 % 12/24/2012 6:21 AM [facility] MPV 9.8 9.4 - 12.9 fl 12/24/2012 6:21 AM [facility] Hematology Reflex Status Manual Diff to follow (none) 12/24/2012 6:21 AM [facility] Platelet Count 256 153 - 416 x10^9/L 12/24/2012 6:21 AM [facility] Blood specimen (specimen) BLOOD SPECIMEN / Unknown 12/24/2012 5:36 AM CLINICAL RESEARCH NURSE COORDINATOR 12/24/2012 5:37 AM CLINICAL RESEARCH NURSE COORDINATOR Robert Cameron MD LAB - HEMATOLOGY ORD ERABLES Performing Organization Address [facility] Co de Phone Number [facility] [address] [place] [address] * (ABNORMAL) GLUCOSE - POINT OF CARE (12/24/2012 5:32 AM CLINICAL RESEARCH NURSE COORDINATOR) [facility] Glucose WB/POC 119(H) 70 - 106 mg/dL 12/24/2012 5:34 AM CLINICAL RESEARCH NURSE COORDINATOR [facility] Blood specimen (specimen) BLOOD SPECIMEN / Unknown 12/24/2012 5:32 AM CLINICAL RESEARCH NURSE COORDINATOR 12/24/2012 5:34 AM CLINICAL RESEARCH NURSE COORDINATOR Gregory Fung MD LAB - POINT OF CARE ORDERABLES Performing Organization Address [facility] Co de Phone Number [facility] [address] [place] [address] * XR PORTABLE CHEST XRAY (12/23/2012 11:29 PM CLINICAL RESEARCH NURSE COORDINATOR) Anatomical Region Laterality Modality Chest Radiographic Shilpi ging 12/24/2012 10:2 6 AM CLINICAL RESEARCH NURSE COORDINATOR Impressions 12/24/2012 10:26 AM CLINICAL RESEARCH NURSE COORDINATOR Postoperative changes as above. Narrative 12/24/2012 10:26 AM CLINICAL RESEARCH NURSE COORDINATOR Portable chest x-ray performed 12/23/2012 at 2323. [...] ORDERABLES * CULTURE URINE (12/23/2012 10:37 PM CLINICAL RESEARCH NURSE COORDINATOR) [facility] Culture SEE BELOW 12/26/2012 8:34 AM CLINICAL RESEARCH NURSE COORDINATOR [facility] Comment: - Final - CULTURE No Growth (<100 CFU/mL) Urine specimen (specimen) URINE SPECIMEN COLLECTION, CATHETERIZED / Unknown 12/23/2012 10:37 PM CLINICAL RESEARCH NURSE COORDINATOR 12/23/2012 10:46 PM CLINICAL RESEARCH NURSE COORDINATOR Adriane Simth MD LAB - MICROBIOLOGY ORDERABLES [facility] [address] [facility] [place] [address], [facility] * URINALYSIS ROUTINE AUTO (12/23/2012 10:37 PM CLINICAL RESEARCH NURSE COORDINATOR) Color UA Yellow Straw, Yellow, Dark Yellow 12/23/2012 11:01 PM [facility] Clarity UA Clear (none) 12/23/2012 11:01 PM [facility] Specific [place] UA 1.019 1.005 - 1.030 12/23/2012 11:01 PM [facility] pH UA 5.5 5.0 - 8.0 12/23/2012 11:01 PM [facility] Protein UA Negative Negative 12/23/2012 11:01 PM [facility] Blood UA Negative Negative 12/23/2012 11:01 PM [facility] Leukocyte UA Negative Negative 12/23/2012 11:01 PM [facility] Nitrite UA Negative Negative 12/23/2012 11:01 PM [facility] Glucose UA Negative Negative 12/23/2012 11:01 PM [facility] Ketone UA Negative Negative 12/23/2012 11:01 PM [facility] Bilirubin UA Negative Negative 12/23/2012 11:01 PM [facility] Urobilinogen UA 0.2 0.1 - 1.0 EU/dL 12/23/2012 11:01 PM [facility] WBC UA Auto 0-2 0-2, 2-5 #/hpf 12/23/2012 11:01 PM [facility] RBC UA Auto 0-2 0-2, 2-5 #/hpf 12/23/2012 11:01 PM [facility] Epithelial Cell UA Auto 0-2 0-2, 2-5 #/hpf 12/23/2012 11:01 PM [facility] Hyaline Casts UA Auto 0-2 None seen, 0-2 #/lpf 12/23/2012 11:01 PM [facility] Urine specimen (specimen) URINE / Unknown 12/23/2012 10:37 PM [facility] 12/23/2012 10:46 PM [facility] Adriane Smith MD LAB - URINALYSIS O RDERABLES [facility] [address] [place] [address] * (ABNORMAL) DIFFERENTIAL MANUAL (12/23/2012 10:25 PM [facility]) WBC Auto 21.4(H) 4.4 - 10.7 X(10)9/L 12/23/2012 11:08 PM [facility] Neutrophil % Manual 77(H) 44 - 73 % 12/23/2012 11:08 PM [facility] Lymphocytes % Manual 8(L) 20 - 43 % 12/23/2012 11:08 PM [facility] Monocytes % Manual 8 5 - 13 % 2012 11:08 PM [facility] Band % Manual 7 0 - 11 % 12/23/2012 11:08 PM [facility] Cells Counted 100 # cells 12/23/2012 11:08 PM [facility] Platelet Estimation Normal 12/23/2012 11:08 PM [facility] Anisocytosis Slight 12/23/2012 11:08 PM [facility] Poikilocytosis Slight 12/23/2012 11:08 PM [facility] Toxic Granulation 1+ 013 11:08 PM [facility] Blood specimen (specimen) BLOOD SPECIMEN / Unknown 12/23/2012 10:25 PM [facility] 12/23/2012 10:30 PM [facility] Adriane Smith MD LAB - HEMATOLOGY O RDERABLES Performing Organization Address City/State/[facility] Phone Number [facility] [place] [address] * (ABNORMAL) CBC W AUTO DIFFERENTIAL (12/23/2012 10:25 PM [facility]) WBC 21.4(H) 4.4 - 10.7 x10^9/L 12/23/2012 10:38 PM [facility] RBC 3.87 3.80 - 5.40 x10^12/L 12/23/2012 10:38 PM [facility] Hemoglobin 11.8(L) 12.0 - 17.6 g/dL 12/23/2012 10:38 PM [facility] Hematocrit 33.1(L) 35.2 - 51.7 % 12/23/2012 10:38 PM [facility] MCV 85.5 80.7 - 98.3 fl 12/23/2012 10:38 PM [facility] MCH 30.5 26.7 - 34.0 pg 12/23/2012 10:38 PM [facility] MCHC 35.6 30.8 - 35.9 gm/dL 12/23/2012 10:38 PM [facility] RDW-CV 15.5(H) 12.1 - 14.9 % 12/23/2012 10:38 PM [facility] MPV 10.0 9.4 - 12.9 fl 12/23/2012 10:38 PM [facility] Hematology Reflex Status Manual Diff to follow (none) 12/23/2012 10:38 PM [facility] Platelet Count 247 153 - 416 x10^9/L 12/23/2012 10:38 PM [facility] Blood specimen (specimen) BLOOD SPECIMEN / Unknown 12/23/2012 10:25 PM [facility] 12/23/2012 10:30 PM CLINICAL RESEARCH NURSE COORDINATOR Adriane Smith MD LAB - HEMATOLOGY O RDERABLES [facility] [address] [place] [id number] * PREPARE PLATELET PHERESIS UNIT(S) (12/23/2012 10:24 PM CLINICAL RESEARCH NURSE COORDINATOR) Unit Donor # [id number] 12/23/2012 10:24 PM [facility] Product Code 31384 12/23/2012 10:24 PM [facility] ABO Donor Type A 12/23/2012 10:24 PM [facility] Rh Type Unit POS 12/23/2012 10:24 PM [facility] Unit Status Transfused Unit 12/23/2012 10:24 PM [facility] Unit Description [id number] PLT, IRR, LR, APH 12/23/2012 10:24 PM [facility] Miscellaneous samples (specimen) BLOOD SPECIMEN / Unknown 12/23/2012 10:09 AM CLINICAL RESEARCH NURSE COORDINATOR Gregory Fung MD LAB - BLOOD BANK OR DERABLES [facility] * PREPARE PLATELET PHERESIS UNIT(S) (12/23/2012 10:24 PM CLINICAL RESEARCH NURSE COORDINATOR) Unit Donor # [id number] 12/23/2012 10:24 PM [facility] Product Code [id number] 12/23/2012 10:24 PM [facility] ABO Donor Type A 12/23/2012 10:24 PM [facility] Rh Type Unit POS 12/23/2012 10:24 PM [facility] Unit Status Transfused Unit 12/23/2012 10:24 PM [facility] Unit Description [id number] PLT, IRR, LR, APH 12/23/2012 10:24 PM [facility] Miscellaneous samples (specimen) BLOOD SPECIMEN / Unknown 12/23/2012 7:39 AM CLINICAL RESEARCH NURSE COORDINATOR Gregory Fung MD LAB - BLOOD BANK OR DERABLES [facility] * (ABNORMAL) PT PTT PANEL (12/23/2012 10:23 PM CLINICAL RESEARCH NURSE COORDINATOR) PT 14.0 12.2 - 14.5 sec 12/23/2012 10:53 PM [facility] INR 1.2 0.8 - 1.2 12/23/2012 10:53 PM [facility] PTT 24.1(L) 25.1 - 36.5 sec 12/23/2012 10:53 PM [facility] Blood specimen (specimen) BLOOD SPECIMEN / Unknown 12/23/2012 10:23 PM CLINICAL RESEARCH NURSE COORDINATOR 12/23/2012 10:28 PM CLINICAL RESEARCH NURSE COORDINATOR Adriane Smith MD LAB - COAGULATION ORDERABLES Performing Organization Address City/[facility]/ZIP Co de Phone Number [facility] [address] [place] [address] * (ABNORMAL) BASIC METABOLIC PANEL (CALCIUM TOTAL) (12/23/2012 7:43 PM CLINICAL RESEARCH NURSE COORDINATOR) Glucose 184(H) 70 - 105 mg/dL 12/23/2012 8:12 PM [facility] Sodium 136 136 - 145 mmol/L 12/23/2012 8:12 PM [facility] Potassium 4.9 3.5 - 5.1 mmol/L 12/23/2012 8:12 PM [facility] Chloride 106 98 - 107 mmol/L 12/23/2012 8:12 PM [facility] CO2 22 22 - 29 mmol/L 12/23/2012 8:12 PM [facility] Calcium 7.97(L) 9.08 - 10.48 mg/dL 12/23/2012 8:12 PM [facility] Anion Gap 8 5 - 20 mmol/L 12/23/2012 8:12 PM [facility] BUN 9.7 5.3 - 18.7 mg/dL 12/23/2012 8:12 PM [facility] Creatinine 0.74 0.61 - 1.07 mg/dL 12/23/2012 8:12 PM [facility] eGFR by MDRD >60 >60 ml/min/1.7 3m2 12/23/2012 8:12 PM [facility] eGFR by MDRD >60 >60 ml/min/1.7 2 12/23/2012 8:12 PM [facility] Blood specimen (specimen) BLOOD SPECIMEN / Unknown 12/23/2012 7:43 PM [facility] 12/23/2012 7:49 PM [facility] Adriane Smith MD LAB - CHEMISTRY OR DERABLES Performing Organization Address City/State/[facility] Co de Phone Number [facility] [address] [place] [address] * (ABNORMAL) DIFFERENTIAL MANUAL (12/23/2012 2:54 PM [facility]) WBC Auto 25.8(H) 4.4 - 10.7 X(10)9/L 12/23/2012 3:30 PM [facility] Neutrophil % Manual 81(H) 44 - 73 % 12/23/2012 3:30 PM [facility] Lymphocytes % Manual 4(L) 20 - 43 % 12/23/2012 3:30 PM [facility] Monocytes % Manual 12 5 - 13 % 12/23/2012 3:30 PM [facility] Band % Manual 3 0 - 11 % 12/23/2012 3:30 PM [facility] Cells Counted 100 # cells 12/23/2012 3:30 PM [facility] Platelet Estimation Adequate platelets 12/23/2012 3:30 PM [facility] WBC Morph Normal 12/23/2012 3:30 PM [facility] Anisocytosis Few 12/23/2012 3:30 PM [facility] Poikilocytosis Occasional 12/23/2012 3:30 PM [facility] [place] Cells Few 12/23/2012 3:30 PM [facility] Schistocytes Occasional 12/23/2012 3:30 PM [facility] Blood specimen (specimen) BLOOD SPECIMEN / Unknown 12/23/2012 2:54 PM CLINICAL RESEARCH NURSE COORDINATOR 12/23/2012 2:58 PM [facility] Robert Cameron MD LAB - HEMATOLOGY ORD ERABLES Performing Organization Address City/State/[facility] Co de Phone Number [facility] [address] [place] [address] * (ABNORMAL) CBC W AUTO DIFFERENTIAL (12/23/2012 2:54 PM [facility]) WBC 25.8(H) 4.4 - 10.7 x10^9/L 12/23/2012 3:15 PM [facility] RBC 4.17 3.80 - 5.40 x10^12/L 12/23/2012 3:15 PM [facility] Hemoglobin 12.8 12.0 - 17.6 g/dL 12/23/2012 3:15 PM [facility] Hematocrit 36.0 35.2 - 51.7 % 12/23/2012 3:15 PM [facility] MCV 86.3 80.7 - 98.3 fl 12/23/2012 3:15 PM [facility] MCH 30.7 26.7 - 34.0 pg 12/23/2012 3:15 PM [facility] MCHC 35.6 30.8 - 35.9 gm/dL 12/23/2012 3:15 PM [facility] RDW-CV 14.2 12.1 - 14.9 % 12/23/2012 3:15 PM [facility] MPV 10.0 9.4 - 12.9 fl 12/23/2012 3:15 PM [facility] Hematology Reflex Status Manual Diff to follow (none) 12/23/2012 3:15 PM [facility] Platelet Count 225 153 - 416 x10^9/L 12/23/2012 3:15 PM [facility] Blood specimen (specimen) BLOOD SPECIMEN / Unknown 12/23/2012 2:54 PM CLINICAL RESEARCH NURSE COORDINATOR 12/23/2012 2:58 PM CLINICAL RESEARCH NURSE COORDINATOR Robert Cameron MD LAB - HEMATOLOGY ORD ERABLES Performing Organization Address City/[facility]/ZIP Co de Phone Number [facility] [place] [address] * CROSSMATCH RBC (12/23/2012 2:09 PM CLINICAL RESEARCH NURSE COORDINATOR) Unit Donor # [id number] -[id number] 12/23/2012 2:09 PM CLINICAL RESEARCH NURSE COORDINATOR [facility] Product Code E0420 12/23/2012 2:09 PM CLINICAL RESEARCH NURSE COORDINATOR [facility] Unit Description [id number] RBC, IRR, LR, -5 12/23/2012 2:09 PM CLINICAL RESEARCH NURSE COORDINATOR [facility] ABO Donor Type O 12/23/2012 2:09 PM CLINICAL RESEARCH NURSE COORDINATOR [facility] Rh Type Unit NEG 12/23/2012 2:09 PM CLINICAL RESEARCH NURSE COORDINATOR [facility] Crossmatch Interpretation Compatible 12/23/2012 2:09 PM CLINICAL RESEARCH NURSE COORDINATOR [facility] Unit Status Returned 12/23/2012 2:09 PM CLINICAL RESEARCH NURSE COORDINATOR [facility] Miscellaneous samples (specimen) BLOOD SPECIMEN / Unknown 12/23/2012 11:51 AM CLINICAL RESEARCH NURSE COORDINATOR Gregory Fung MD LAB - BLOOD BANK OR DERABLES Performing Organization Address City/[facility]/ZIP Co de Phone Number [facility] * CULTURE MRSA (12/23/2012 2:08 PM CLINICAL RESEARCH NURSE COORDINATOR) Pathologist [facility] Culture SEE BELOW 12/24/2012 8:18 PM CLINICAL RESEARCH NURSE COORDINATOR [facility] INTER[facility]ACES Comment: - Final - NO growth of Staphylococcus aureus (MRSA) Miscellaneous samples (specimen) SPECIMEN FROM NASAL FOSSAE / Unknown 12/23/2012 2:08 PM CLINICAL RESEARCH NURSE COORDINATOR 12/23/2012 2:14 PM CLINICAL RESEARCH NURSE COORDINATOR Robert Cameron MD LAB - MICROBIOLOGY O RDERABLES [facility] INTER[facility]AC[facility] [address] [facility] [place] [address], [facility] * CROSSMATCH RBC (12/23/2012 1:02 PM CLINICAL RESEARCH NURSE COORDINATOR) Unit Donor # [id number] -M 12/23/2012 1:02 PM [facility] Product Code E0420 12/23/2012 1:02 PM [facility] Unit Description [id number] RBC, IRR, LR, -5 12/23/2012 1:02 PM [facility] ABO Donor Type A 12/23/2012 1:02 PM [facility] Rh Type Unit POS 12/23/2012 1:02 PM [facility] Crossmatch Interpretation Compatible 12/23/2012 1:02 PM [facility] Unit Status Returned 12/23/2012 1:02 PM [facility] Miscellaneous samples (specimen) BLOOD SPECIMEN / Unknown 12/23/2012 11:51 AM CLINICAL RESEARCH NURSE COORDINATOR Gregory Fung MD LAB - BLOOD BANK OR DERABLES [facility] * CROSSMATCH RBC (12/23/2012 1:02 PM CLINICAL RESEARCH NURSE COORDINATOR) Unit Donor # [id number] -[id number] 12/23/2012 1:02 PM [facility] Product Code E0420 12/23/2012 1:02 PM [facility] Unit Description [id number] RBC, IRR, LR, -5 12/23/2012 1:02 PM [facility] ABO Donor Type A 12/23/2012 1:02 PM [facility] Rh Type Unit POS 12/23/2012 1:02 PM [facility] Crossmatch Interpretation Compatible 12/23/2012 1:02 PM [facility] Unit Status Returned 12/23/2012 1:02 PM [facility] Miscellaneous samples (specimen) BLOOD SPECIMEN / Unknown 12/23/2012 11:51 AM CLINICAL RESEARCH NURSE COORDINATOR Gregory Fung MD LAB - BLOOD BANK OR DERABLES [facility] * CROSSMATCH RBC (12/23/2012 1:02 PM CLINICAL RESEARCH NURSE COORDINATOR) Pathologist [facility] Unit Donor # [id number] -[id number] 12/23/2012 1:02 PM [facility] Product Code E0420 12/23/2012 1:02 PM [facility] Unit Description [id number] RBC, IRR, LR, -5 12/23/2012 1:02 PM [facility] ABO Donor Type A 12/23/2012 1:02 PM [facility] Rh Type Unit POS 12/23/2012 1:02 PM [facility] Crossmatch Interpretation Compatible 12/23/2012 1:02 PM [facility] Unit Status Returned 12/23/2012 1:02 PM [facility] Miscellaneous samples (specimen) BLOOD SPECIMEN / Unknown 12/23/2012 11:51 AM CLINICAL RESEARCH NURSE COORDINATOR Gregory Fung MD LAB - BLOOD BANK OR DERABLES [facility] * (ABNORMAL) ISTAT CG8+ PANEL NATHAN (12/23/2012 11:50 AM CLINICAL RESEARCH NURSE COORDINATOR) Pathologist [facility] pH Venous POCT 7.26(L) 7.35 - 7.45 pH 12/23/2012 6:01 PM [facility] pCO2 Venous POCT 44.5 35 - 48 mmHg 12/23/2012 6:01 PM [facility] pO2 Venous POCT 39(L) 83 - 108 mmHg 12/23/2012 6:01 PM [facility] HCO3 Venous 19.8(L) 23 - 28 mmol/L 12/23/2012 6:01 PM [facility] BE Venous -7(L) -2 - 2 mmol/L 12/23/2012 6:01 PM [facility] TCO2 Venous Calc POCT 21(L) 22 - 30 mmol/L 12/23/2012 6:01 PM [facility] O2 Saturation Venous POCT 65(L) 95 - 99 % 12/23/2012 6:01 PM [facility] Sodium Venous 166(HH) 136 - 146 mmol/L 12/23/2012 6:01 PM [facility] Potassium POCT 4.3 3.4 - 4.5 mmol/L 12/23/2012 6:01 PM [facility] Calcium Ionized Venous POCT 0.80(L) 1.12 - 1.32 mmol/L 12/23/2012 6:01 PM [facility] Glucose Venous POCT 143(H) 70 - 106 mg/dL 12/23/2012 6:01 PM [facility] Hemoglobin Venous POCT 16.7 12.0 - 17.6 g/dL 12/23/2012 6:01 PM [facility] Hematocrit Venous POCT 49.0 41.0 - 53.0 %PCV 12/23/2012 6:01 PM [facility] Site [place] Line 12/23/2012 6:01 PM [facility] CPB iSTAT No 12/23/2012 6:01 PM [facility] Sample iSTAT VENOUS 12/23/2012 6:01 PM [facility] Blood specimen (specimen) BLOOD SPECIMEN / Unknown 12/23/2012 11:50 AM CLINICAL RESEARCH NURSE COORDINATOR 12/23/2012 6:01 PM [facility] Narrative [facility] - 12/23/2012 6:01 PM [facility] NOTE: Reference ranges are for Arterial Blood. Gregory Fung MD LAB - POINT OF CARE ORDERABLES Performing Organization Address City/State/[facility] Co de Phone Number [facility] [address] [facility] [place] [address] * GROSS + MICRO EXAM (STL) (12/23/2012 10:41 AM CLINICAL RESEARCH NURSE COORDINATOR) Case Report Surgical Pathology Report ? Case: [id number] ? Authorizing Provider: ??Gregory Fung MD ?Ordering Provider: ?? Gregory Fung MD ? Ordering Location: ? [facility] ? Collected: ? 12/23/2012 10:41 AM ? Pathologist: ? Alejandro Bay MD ?Received: ?12/23/2012 ??2:50 PM ?Signed Out: ?12/29/2012 ??2:27 PM (Final) ? Specimens: ?? A) - Spleen, Accessory Spleen ? B) - Spleen ? 12/29/2012 2:27 PM [facility] Final Diagnosis A)ACCESSORY SPLEEN, RESECTION: - ACCESSORY SPLEEN. B)SPLEEN, 213 g. SPLENECTOMY: - VASCULAR AND SINUSOIDAL CONGESTION. - NEGATIVE FOR LYMPHOMA(SEE NOTE) 12/29/2012 2:27 PM [facility] Clinical History The patient is a 17-year-old male with history of ITP, neutropenia, history of liver transplant and autoimmune hepatitis who underwent open splenectomy. 12/29/2012 2:27 PM [facility] Gross Description The specimens [...] area measuring 0.1 cm in greatest diameter. ??Health And Physical Education Professor sections from the specimen are submitted in cassette B1 and B2. ??A portion of the specimen is placed in RPMI for flow cytometry analysis. ?? SKS/scs 12/29/2012 2:27 PM [facility] Microscopic Description Sections of the spleen and accessory spleen show congested splenic parenchyma with reactive follicles. Follicles have well-defined marginal zones and prominent germinal centers with mitotic activity. No atypia or malignancy is seen. Health And Physical Education Professor section of the grossly described nodular lesion shows a laminated area of collagen and fibrosis continuous with the splenic capsule. A portion of the specimen was submitted for flow cytometric analysis([id number]), and results showed no evidence of Non-Hodgkin Lymphoma. 12/29/2012 2:27 PM [facility] Flow Cytometry Summary NO EVIDENCE OF NON-HODGKIN LYMPHOMA (SEE REPORT FROM [facility] SIGNED BY DR. Subha DOUGHERTY) 12/29/2012 2:27 PM [facility] Reference SLIDES WERE SHOWN TO DR. Trupti DOUGHERTY OF [facility]: SHE CONCURS AND ADDS: HYPERPLASTIC WHITE PULP, LYMPHOCYTE DEPLETION, NUMEROUS MACROPHAGES, FOLLICULAR DENDRITIC CELLS AND SCATTERED APOPTOTIC CELLS. NO EVIDENCE OF LYMPHOMA. 12/29/2012 2:27 PM [facility] Disclaimer The performance characteristics of all immunohistochemical and indirect ??immunofluorescence stains (if any) cited in this report were determined by the Histopathology Laboratory of [facility] (immunohistochemistry ) or the Histology Laboratory of [facility] (indirect immunofluorescence) in compliance with CLIA `88 regulations. ??Some of these tests rely on the use of analyte-specific reagents and are subject to specific labeling requirements by the FDA. ??Such tests were developed by the ??[facility] Laboratory of [facility] or the [facility]ology Laboratory of [facility] and have not been cleared or approved by the FDA. ??The FDA has determined that such clearance or approval is not necessary. ??These tests are used for clinical purposes and should not be regarded as investigational or for research. ? This case has been personally reviewed and interpreted by the attending (teaching) pathologist. 12/29/2012 2:27 PM [facility] Synoptic Report 12/29/2012 2:27 PM [facility] Miscellaneous samples (specimen) ENTIRE SPLEEN / Unknown 12/23/2012 10:41 AM CLINICAL RESEARCH NURSE COORDINATOR 12/23/2012 2:50 PM [facility] Miscellaneous samples (specimen) ENTIRE SPLEEN / Unknown 12/23/2012 12:15 PM [facility] 12/23/2012 2:50 PM [facility] Gregory Fung MD LAB - PATHOLOGY/CYT OLOGY ORDERABLES [facility] [address] [place] [address] * (ABNORMAL) CBC W AUTO DIFFERENTIAL (12/23/2012 6:53 AM CLINICAL RESEARCH NURSE COORDINATOR) WBC 6.5 4.4 - 10.7 x10^9/L 12/23/2012 7:22 AM [facility] RBC 4.90 3.80 - 5.40 x10^12/L 12/23/2012 7:22 AM [facility] Hemoglobin 15.8 12.0 - 17.6 g/dL 12/23/2012 7:22 AM [facility] Hematocrit 42.7 35.2 - 51.7 % 12/23/2012 7:22 AM [facility] MCV 87.1 80.7 - 98.3 fl 12/23/2012 7:22 AM [facility] MCH 32.2 26.7 - 34.0 pg 12/23/2012 7:22 AM [facility] MCHC 37.0(H) 30.8 - 35.9 gm/dL 12/23/2012 7:22 AM [facility] RDW-CV 12.7 12.1 - 14.9 % 12/23/2012 7:22 AM [facility] MPV 10.8 9.4 - 12.9 fl 12/23/2012 7:22 AM [facility] Neutrophils % 58 44 - 73 % 12/23/2012 7:22 AM [facility] Lymphocytes % 24 20 - 43 % 12/23/2012 7:22 AM [facility] Monocytes % 14(H) 5 - 13 % 12/23/2012 7:22 AM [facility] Eosinophils % 4 0 - 6 % 12/23/2012 7:22 AM [facility] Basophils % 0 0 - 2 % 12/23/2012 7:22 AM [facility] Immature Granulocytes 0.3 0 - 1 % 12/23/2012 7:22 AM [facility] Neutrophil Absolute 3.77 2.01 - 7.14 x10^9/L 12/23/2012 7:22 AM [facility] Lymphocytes Absolute 1.52 1.07 - 3.94 x10^9/L 12/23/2012 7:22 AM [facility] Monocytes Absolute 0.87 0.26 - 1.07 x10^9/L 12/23/2012 7:22 AM [facility] Eosinophils Absolute 0.25 0 - 0.47 x10^9/L 12/23/2012 7:22 AM [facility] Basophils Absolute 0.02 0 - 0.08 x10^9/L 12/23/2012 7:22 AM [facility] Immature Granulocytes Absolute 0.02 0.00 - 0.06 x10^9/L 12/23/2012 7:22 AM [facility] Platelet Count 116(L) 153 - 416 x10^9/L 12/23/2012 7:22 AM [facility] Blood specimen (specimen) BLOOD SPECIMEN / Unknown 12/23/2012 6:53 AM CLINICAL RESEARCH NURSE COORDINATOR 12/23/2012 7:08 AM CLINICAL RESEARCH NURSE COORDINATOR Adriane Smith MD LAB - HEMATOLOGY O [facility] [address] [place] [id number] * CROSSMATCH RBC (12/23/2012 6:53 AM CLINICAL RESEARCH NURSE COORDINATOR) Unit Donor # [id number] 12/23/2012 4:10 PM [facility] Product Code E0420 12/23/2012 4:10 PM [facility] Unit Description E0420 RBC, IRR, LR, -5 12/23/2012 4:10 PM [facility] ABO Donor Type O 12/23/2012 4:10 PM [facility] Rh Type Unit NEG 12/23/2012 4:10 PM [facility] Crossmatch Interpretation COMP 12/23/2012 4:10 PM [facility] Unit Status Transfused Unit 12/23/2012 4:10 PM [facility] Miscellaneous samples (specimen) BLOOD SPECIMEN / Unknown 12/23/2012 6:53 AM [facility] 12/23/2012 7:08 AM CLINICAL RESEARCH NURSE COORDINATOR Adriane Smith MD LAB - BLOOD BANK O [facility] * CROSSMATCH RBC (12/23/2012 6:53 AM CLINICAL RESEARCH NURSE COORDINATOR) Unit Donor # [id number] 12/27/2012 12:12 AM [facility] Product Code E0420 12/27/2012 12:12 AM [facility] Unit Description E0420 RBC, IRR, LR, -5 12/27/2012 12:12 AM [facility] ABO Donor Type A 12/27/2012 12:12 AM [facility] Rh Type Unit POS 12/27/2012 12:12 AM [facility] Crossmatch Interpretation Compatible 12/27/2012 12:12 AM [facility] Unit Status Returned 12/27/2012 12:12 AM [facility] Miscellaneous samples (specimen) BLOOD SPECIMEN / Unknown 12/23/2012 6:53 AM CLINICAL RESEARCH NURSE COORDINATOR 12/23/2012 12:55 PM CLINICAL RESEARCH NURSE COORDINATOR Adriane Smith MD LAB - BLOOD BANK O [facility] * CROSSMATCH RBC (12/23/2012 6:53 AM CLINICAL RESEARCH NURSE COORDINATOR) Unit Donor # [id number] 12/27/2012 12:12 AM [facility] Product Code E0420 12/27/2012 12:12 AM [facility] Unit Description E0420 RBC, IRR, LR, -5 12/27/2012 12:12 AM [facility] ABO Donor Type A 12/27/2012 12:12 AM [facility] Rh Type Unit POS 12/27/2012 12:12 AM [facility] Crossmatch Interpretation Compatible 12/27/2012 12:12 AM [facility] Unit Status Returned 12/27/2012 12:12 AM [facility] Miscellaneous samples (specimen) BLOOD SPECIMEN / Unknown 12/23/2012 6:53 AM CLINICAL RESEARCH NURSE COORDINATOR 12/23/2012 12:55 PM CLINICAL RESEARCH NURSE COORDINATOR Adriane Smith MD LAB - BLOOD BANK O [facility] * ANTIBODY SCREEN (12/23/2012 6:53 AM CLINICAL RESEARCH NURSE COORDINATOR) Antibody Screen Negative 12/23/2012 12:04 PM [facility] Miscellaneous samples (specimen) BLOOD SPECIMEN / Unknown 12/23/2012 6:53 AM CLINICAL RESEARCH NURSE COORDINATOR 12/23/2012 7:08 AM CLINICAL RESEARCH NURSE COORDINATOR Adriane Smith MD LAB - BLOOD BANK O [facility] * BLOOD TYPE ABO+ RH PANEL (12/23/2012 6:53 AM CLINICAL RESEARCH NURSE COORDINATOR) ABO A 12/23/2012 12:04 PM [facility] Rh Type Positive 12/23/2012 12:04 PM [facility] Miscellaneous samples (specimen) BLOOD SPECIMEN / Unknown 12/23/2012 6:53 AM CLINICAL RESEARCH NURSE COORDINATOR 12/23/2012 7:08 AM CLINICAL RESEARCH NURSE COORDINATOR Adriane Smith MD LAB - BLOOD BANK O SARAH Performing Organization Address City/[facility]/ZIP Co de Phone Number [facility] * CROSSMATCH RBC (12/23/2012 6:53 AM CLINICAL RESEARCH NURSE COORDINATOR) Unit Donor # [id number] 12/23/2012 4:10 PM [facility] Product Code E0420 12/23/2012 4:10 PM [facility] Unit Description E0420 RBC, IRR, LR, -5 12/23/2012 4:10 PM [facility] ABO Donor Type O 12/23/2012 4:10 PM [facility] Rh Type Unit NEG 12/23/2012 4:10 PM [facility] Crossmatch Interpretation COMP 12/23/2012 4:10 PM [facility] Unit Status Transfused Unit 12/23/2012 4:10 PM [facility] Miscellaneous samples (specimen) BLOOD SPECIMEN / Unknown 12/23/2012 6:53 AM CLINICAL RESEARCH NURSE COORDINATOR 12/23/2012 8:07 AM CLINICAL RESEARCH NURSE COORDINATOR Adirane Smith MD LAB - BLOOD BANK O [facility] documented in this [...] MAR Action Action Date Dose Rate Site 0.9% nacl irrigation solution PRN, Other, Starting on Wed12/23/12 at 0845, Until Wed12/23/12 at 1345, Intra-op $ Given 12/23/2012 8:45 AM CLINICAL RESEARCH NURSE COORDINATOR 1,000 mL Operative Site bupivacaine (MARCAINE) 0.5 % injection PRN, Starting on Wed12/23/12 at 1319, Until Wed12/23/12 at 1345, Intra-op $ Given 12/23/2012 1:19 PM CLINICAL RESEARCH NURSE COORDINATOR 10 mL Operative Site documented in this encounter Active and Recently Administered Medications Times are shown in CLINICAL RESEARCH NURSE COORDINATOR. Scheduled Medication Order 12/26/2012 12/27/2012 12/28/2012 ceFAZolin [...] Peña RN)[id number] ($ Given - Provider: Ny Phillips, SHAILESH) esomeprazole (NexIUM) injection 40 mg (CANCELED) 40 mg, Intravenous, DAILY, First dose on Wed12/23/12 at 1600, Until Discontinued, Administer over 5 minutes. RX diluted in NS. 08 ($ Given - Provider: Keya Allen RN) 09 ($ Given - Provider: Ny Phillips, SHAILESH) 0830 ($ Given During Downtime - Provider: [...] not crush, chew, or cut in half. 0828 ($ Given - Provider: Keya Allen RN) [...] Peña RN)[phone] (Rate Change - Provider: Ny Phillips RN)[phone] ($ New Bag/Syringe - Provider: Ny Phillips RN) documented in this encounter Care Teams Equipment Sterilizer Relationship Specialty Start Date End Date Vilma Spangler MD [address] [address] PCP - General 01/05/11 documented as of this encounter
--- OUTSIDE RECORDS SUMMARY | 2024-10-28 05:56 | XMS_ITS | Encounter Summary ---
Author Organization [facility] Address [address] [place] [address] Care Team Providers Care Business Banking Representative Name Role Phone Vilma Spangler MD Primary Care Provider [phone] Encounter Details Date Type Department Care Team (Late st Contact Info) Description 01/17/2013 7:26 AM CDT - 01/17/2013 11:59 PM CDT Hospital Encounter The [facility] at [address] [address] Philip Chavez MD [address] [place] [phone] Discharge Disposition: Home or Self Care Social [...] Sign Reading Time Taken Comments Blood Pressure 94/56 01/17/2013 11:20 AM CDT Pulse 68 01/17/2013 11:20 AM CDT Temperature 36 ??C (96.8 ??F) 01/17/2013 8:00 AM CDT Respiratory Rate 18 01/17/2013 11:20 AM CDT Oxygen Saturation 98% 01/17/2013 8:00 AM CDT Inhaled Oxygen Concentration - - Weight 54.7 kg (120 lb 9.5 oz) 01/17/2013 8:00 A M CDT Height 169.5 cm (5' 6.73 ) 01/17/2013 8:00 AM CD T Body Mass Index 19.04 01/17/2013 8:00 AM CDT documented in this encounter Discharge Instructions * Discharge Instructions* Document, Scanned - 01/18/2013 5:47 AM CDT documented in this encounter Medications [...] as of this encounter Progress Notes * Dann Robles RN - 01/17/2013 12:04 PM CDT Care assumed, IVIG infused and titrated per protocol, VSS throughout, pt tolerated well. No other concerns at this time, PIV removed, pt to RTC in 4 weeks, verbalized understanding. Left in mom's care * Ileana Castillo RN - 01/17/2013 9:36 AM CDT Patient came to clinic accompanied by mother for scheduled visit with Dr. Chavez, labs and IVIG infusion. Triaged and assessed upon arrival. 22 G PIV placed in patient's left AC, labs obtained. MD examined patient. Report given to Sixto Robles RN to resume care for patient's IVIG infusion. * Philip Chavez MD - 01/17/2013 9:07 AM CDT Hematology/Oncology Progress Note 01/17/13 Beka Nichols PCP: Vilma Spangler Diagnosis: Autoimmune Thrombocytopenia/Autoimmune Neutropenia Liver Transplant Lymphadenopathy Interval History: Beka is a 17yo male with a history of cadaveric liver [...] injury. Beka recovered nicely. Platelets increased nicely. Currently Beka is doing well. He has had no fevers. Appetite has been good. No pain. Incision itchy. No bleeding. Energy level is excellent. No Known Allergies Current Outpatient Prescriptions Medication Sig Dispense Refill ??? valGANciclovir (VALCYTE) 450 MG tablet Take 1 Tab by mouth daily with breakfast for 45 days. 45Tab 0 ??? sulfamethoxazole-trimethoprim (BACTRIM DS; SEPTRA DS) 800-160 MG tablet Take 1 Tab by mouth every 12 hours for 45 days. 90 Tab 0 ??? tacrolimus (PROGRAF) 0.5 MG capsule Take 1 Cap by mouth 2 times daily for 30 days. 60 Cap 0 ??? acetaminophen (TYLENOL) 325 MG tablet Take 325 mg by mouth every 4 hours as needed. Maximum allowable Acetaminophen amount = 4 Grams (4000 mg) / 24 hours. Current Facility-Administered Medications Medication Dose Route Frequency Provider Last Rate Last Dose ??? dextrose 5 % infusion Intravenous Continuous Philip Chavez MD ??? immune globulin (human) (PRIVIGEN) 10 % infusion 25 g 25 g Intravenous Once Philip Chavez MD ??? diphenhydrAMINE (BENADRYL) tablet 50 mg 50 mg Oral Once Philip Chavez MD 50 mg at 01/17/13 0826 ??? acetaminophen (TYLENOL) tablet 500 mg 500 mg Oral Once Philip Chavez MD 500 mg at 01/17/13 0826 Review of Systems: 1) General Fever: no Wt/appetite change: no 2) Hem Bruising: no 3) Skin Rash: no 4) ENT Congestion:no Rhinorrhea: no Epistaxis: no Sore Throat: no Change in Hearing: no Earache: no Stomatitis: no 5) Resp/CV Shortness of Breath: no Chest Pain: no Cough:no 6) GI Pain: no Jaundice: no Nausea: no Vomiting: no Diarrhea: no Constipation: no 7) Frequency: no Dysuria: no Hematuria: no Other: no 8) Musculo-skeletal Pain: no Swelling/Edema: no Change in ROM: no 9) Neuro Headache: no Weakness: no 10) Psych Behavior: no Other: no 11) Allergy/Immun no 12) Pain no 13) Nutritional Status good Past Medical History: unchanged Family Medical History: unchanged Social History: unchanged Physical Exam Constitutional: BP 94/60 Pulse 73 Temp 96.8 ??F Resp 24 Ht 1.695 m (5' 6.73 ) Wt 54.7 kg (120 lb 9.5 oz) BMI 19.04 kg/m2 SpO2 98% BSA (Calculated): 1.6 General Appearance: No acute distress. Awake and alert. Head: No nasal congestion or discharge. Skin: no rashes, bruises, or petechiae. Eyes: anicteric: pupils equal, round, reactive to light; intact extra-ocular movements Mouth/throat: no sores, erythema, exudates, or mucosal pallor. Lymph nodes: No residual cervical LAD Chest: lungs clear to auscultation Heart: normal S1 and S2, no murmur Abdomen: soft, non-tender, no masses or hepatosplenomegaly. Large transverse upper abdominal scar well healed. Genitalia: deferred Extremities: no focal swelling or tenderness; full ROM. Neuro: nonfocal Lab and/or Imaging Studies Recent Results (from the past 72 hour(s)) DIFFERENTIAL MANUAL Collection Time 01/17/13 8:19 AM Component Value Range WBC Auto 3.1 (*) 4.4-10.7 X(10)9/L Neutro Manual 34 (*) 44-73 % Lymph Manual 45 (*) 20-43 % [place] Manual 21 (*) 5-13 % Cells Counted 100 Plt Est Sltly increased RBC Morph Normal WBC Morph Normal CBC W AUTO DIFFERENTIAL Collection Time 01/17/13 8:19 AM Component Value Range WBC 3.1 (*) 4.4-10.7 x10^9/L RBC 4.28 3.80-5.40 x10^12/L Hgb 13.2 12.0-17.6 g/dL HCT 38.1 35.2-51.7 % MCV 89.0 80.7-98.3 fl MCH 30.8 26.7-34.0 pg MCHC 34.6 30.8-35.9 gm/dL Plt Ct 492 (*) 153-416 x10^9/L RDW-CV 15.5 (*) 12.1-14.9 % MPV 9.5 9.4-12.9 fl Neutro 35 (*) 44-73 % Lymph 39 20-43 % [place] 26 (*) 5-13 % Eos 0 0-6 % Baso 0 0-2 % Immature Grans 0.6 0-1 % Neutro Abs 1.08 (*) 2.01-7.14 x10^9/L Lymph Abs 1.21 1.07-3.94 x10^9/L [place] Abs 0.80 0.26-1.07 x10^9/L Eosin Abs 0.00 0-0.47 x10^9/L Baso Abs 0.01 0-0.08 x10^9/L Immature Grans Abs 0.02 0.00-0.06 x10^9/L Hemo Reflex Status Manual Diff to follow (none) Assessment 1. Autoimmune Thrombocytopenia/Neutropenia: S/p splenectomy in 12/2012. Platelet count excellent today. ANC at 1000 today. Slightly lower than before. 2. Immune suppression: Patient on chronic tacrolimus for liver transplant. 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 IVIG regularly and likely retirement. Plan 1. Counts, LFT panel, IgG 2. RTC in 4 weeks for IgG and possible IVIG -Repeat counts, IgG, chemistries, EBV PCR at that time 3. IVIG given today 0.5 g/kg. documented in this encounter Miscellaneous Notes * Miscellaneous Scans - Document, Scanned - 02/03/2013 6:39 PM CDT documented in this encounter Plan of Treatment Not on file documented as of this encounter Procedures Procedure Name Priority Date/Time Associated Diagnosis Comments CBC W AUTO DIFFERENTIAL ZAHRA 01/17/2013 8:19 AM CDT ITP (idiopathic thrombocytopenic purpura) HEPATIC FUNCTION PANEL Routine 01/17/2013 8:19 AM CDT ITP (idiopathic thrombocytopenic purpura) LIPASE BLOOD Routine 01/17/2013 8:19 AM CDT ITP (idiopathic thrombocytopenic purpura) IGG BLOOD ZAHRA 01/17/2013 8:19 AM CDT ITP (idiopathic thrombocytopenic purpura) DIFFERENTIAL MANUAL Routine 01/17/2013 8 :19 AM CDT ITP (idiopathic thrombocytopenic purpura) documented in this encounter Results * LIPASE BLOOD (01/17/2013 8:19 AM CDT) Lipase 88 10 - 220 U/L 01/17/2013 9:56 AM CDT [facility] Blood specimen (specimen) BLOOD SPECIMEN / Unknown 01/17/2013 8:19 AM CDT 01/17/2013 8:27 AM CDT Philip Chavez MD LAB - CHEMISTRY O RDERABLES [facility] [address] [place] [address] * (ABNORMAL) HEPATIC FUNCTION PANEL (01/17/2013 8:19 AM CDT) Alkaline Phosphatase 137 39 - 139 U/L 01/17/2013 9:55 AM CDT [facility] ALT 42 6 - 46 U/L 01/17/2013 9:55 AM CDT [facility] AST 33 8 - 42 U/L 01/17/2013 9:55 AM CDT [facility] Protein Total 6.8 6.3 - 8.2 gm/dL 01/17/2013 9:55 AM CDT [facility] Albumin 4.3 3.3 - 4.9 gm/dL 01/17/2013 9:55 AM CDT [facility] Bilirubin Total 0.2(L) 0.3 - 1.2 mg/dL 01/17/2013 9:55 AM CDT [facility] Bilirubin Direct 0.13 0.11 - 0.64 mg/dL 01/17/2013 9:55 AM CDT [facility] Blood specimen (specimen) BLOOD SPECIMEN / Unknown 01/17/2013 8:19 AM CDT 01/17/2013 8:27 AM CDT Philip Chavez MD LAB - CHEMISTRY O RDERABLES Performing Organization Address [facility] Co de Phone Number [facility] [address] [place] [phone] * IGG BLOOD (01/17/2013 8:19 AM CDT) IgG 813 540 - 1,822 mg/dL 01/17/2013 9:56 AM CDT [facility] Blood specimen (specimen) BLOOD SPECIMEN / Unknown 01/17/2013 8:19 AM CDT 01/17/2013 8:27 AM CDT Philip Chavez MD LAB - CHEMISTRY O RDERABLES Performing Organization Address [facility] Co de Phone Number [facility] [address] [place] [phone] * (ABNORMAL) CBC W AUTO DIFFERENTIAL (01/17/2013 8:19 AM CDT) WBC 3.1(L) 4.4 - 10.7 x10^9/L 01/17/2013 8:41 AM CDT [facility] RBC 4.28 3.80 - 5.40 x10^12/L 01/17/2013 8:41 AM CDT [facility] Hemoglobin 13.2 12.0 - 17.6 g/dL 01/17/2013 8:41 AM [facility] Hematocrit 38.1 35.2 - 51.7 % 01/17/2013 8:41 AM [facility] MCV 89.0 80.7 - 98.3 fl 01/17/2013 8:41 AM [facility] MCH 30.8 26.7 - 34.0 pg 01/17/2013 8:41 AM [facility] MCHC 34.6 30.8 - 35.9 gm/dL 01/17/2013 8:41 AM [facility] Platelet Count 492(H) 153 - 416 x10^9/L 01/17/2013 8:41 AM [facility] RDW-CV 15.5(H) 12.1 - 14.9 % 01/17/2013 8:41 AM [facility] MPV 9.5 9.4 - 12.9 fl 01/17/2013 8:41 AM [facility] Neutrophils % 35(L) 44 - 73 % 01/17/2013 8:41 AM [facility] Lymphocytes % 39 20 - 43 % 01/17/2013 8:41 AM [facility] Monocytes % 26(H) 5 - 13 % 01/17/2013 8:41 AM [facility] Eosinophils % 0 0 - 6 % 01/17/2013 8:41 AM [facility] Basophils % 0 0 - 2 % 01/17/2013 8:41 AM [facility] Immature Granulocytes 0.6 0 - 1 % 01/17/2013 8:41 AM [facility] Neutrophil Absolute 1.08(L) 2.01 - 7.14 x10^9/L 01/17/2013 8:41 AM [facility] Lymphocytes Absolute 1.21 1.07 - 3.94 x10^9/L 01/17/2013 8:41 AM [facility] Monocytes Absolute 0.80 0.26 - 1.07 x10^9/L 01/17/2013 8:41 AM [facility] Eosinophils Absolute 0.00 0 - 0.47 x10^9/L 01/17/2013 8:41 AM [facility] Basophils Absolute 0.01 0 - 0.08 x10^9/L 01/17/2013 8:41 AM [facility] Immature Granulocytes Absolute 0.02 0.00 - 0.06 x10^9/L 01/17/2013 8:41 AM T [facility] Hematology Reflex Status Manual Diff to follow (none) 01/17/2013 8:41 AM [facility] Blood specimen (specimen) BLOOD SPECIMEN / Unknown 01/17/2013 8:19 AM CDT 01/17/2013 8:27 AM CDT Philip Chavez MD LAB - HEMATOLOGY ORDERABLES Performing Organization Address City/[facility] Co de Phone Number [facility] [address] [place] [address] * (ABNORMAL) DIFFERENTIAL MANUAL (01/17/2013 8:19 AM CDT) WBC Auto 3.1(L) 4.4 - 10.7 X(10)9/L 01/17/2013 8:59 AM T [facility] Neutrophil % Manual 34(L) 44 - 73 % 01/17/2013 8:59 AM [facility] Lymphocytes % Manual 45(H) 20 - 43 % 01/17/2013 8:59 AM [facility] Monocytes % Manual 21(H) 5 - 13 % 01/17/2013 8:59 AM [facility] Cells Counted 100 # cells 01/17/2013 8:59 AM [facility] Platelet Estimation Sltly increased 01/17/2013 8:59 AM T [facility] RBC Morphology Normal 01/17/2013 8:59 AM [facility] WBC Morph Normal 01/17/2013 8:59 AM T [facility] Blood specimen (specimen) BLOOD SPECIMEN / Unknown 01/17/2013 8:19 AM CDT 01/17/2013 8:27 AM CDT Philip Chavez MD LAB - HEMATOLOGY ORDERABLES Performing Organization Address [facility] Co de Phone Number [facility] [address] [place] [address] documented in this encounter Visit Diagnoses Diagnosis ITP (idiopathic thrombocytopenic purpura) (HCC) Immune thrombocytopenic purpura Hypogammaglobulinemia (HCC) Hypogammaglobulinaemia, unspecified documented in this encounter Administered Medications Inactive Administered Medications - up to 3 most recent administrations Medication Order MAR Action Action Date Dose Rate Site acetaminophen (TYLENOL) tablet 500 mg 500 mg, Oral, ONCE, 1 dose, On Wed01/17/13 at 0800, Administer one (1) hour prior to IVIG administration. $ Given 01/17/2013 8:26 AM CDT 500 mg diphenhydrAMINE (BENADRYL) tablet 50 mg 50 mg, Oral, ONCE, 1 dose, On Wed01/17/13 at 0800, Administer one (1) hour prior to IVIG administration. $ Given 01/17/2013 8:26 AM CDT 50 mg immune globulin (human) (PRIVIGEN) 10 % infusion 25 g 25 g, Intravenous, ONCE, 1 dose, On Wed01/17/13 at 0900, Intravenous, CONTINUOUS for 2 hours, Initiate infusion [...] one half the previous rate. $ Given 01/17/2013 9:34 AM CDT 25 g documented in this encounter Care Teams Business Banking Representative Relationship Specialty Start Date End Date Vilma Spangler MD [address] [phone] PCP - General 01/05/11 documented as of this encounter
--- OUTSIDE RECORDS SUMMARY | 2024-10-28 05:56 | XMS_ITS | Encounter Summary ---
Author Organization [facility] Address [address] [facility] [place] [address] Care Team Providers Care Broadcast Correspondent Name Role Phone Vilma Spangler MD Primary Care Provider [phone] Reason for Visit * Reason Onset Date Comments Follow-up 02/20/2013 Encounter Details Date Type Department Care Team (Late st Contact Info) Description 02/20/2013 Telephone [facility] at [address] [address] Anastasia Fox, RN Follow-up Social [...] Telephone Encounter - Anastasia Fox, RN - 02/20/2013 12:53 PM CDT Patient's mother called to follow-up on lab results and plan after recent visit on 02/14/13. Spoke with Dr. Chavez who instructed to recheck IgG level in 1 week and if low then, will treat with IVIG. Long-term plan will be to space clinic visits to every 3 months. Mother agreed to all instructions and transferred to javascript front end developer to schedule appt for labs on Wednesday, 02/27. documented in this encounter Plan of Treatment Not on file documented as of this encounter Visit Diagnoses Not on filedocumented in this encounter Care Teams Broadcast Correspondent Relationship Specialty Start Date End Date Vilma Spangler MD [address] [facility] [address] [place] [address] PCP - General 01/05/11 documented as of this encounter
--- OUTSIDE RECORDS SUMMARY | 2024-10-28 05:56 | XMS_ITS | Encounter Summary ---
Author Organization [facility] Address [address] [facility] [place] [address] Care Team Providers Care Loom Cleaner Name Role Phone Vilma Spangler MD Primary Care Provider [phone] Reason for Visit * Reason Onset Date Comments Update 11/11/2012 Encounter Details Date Type Department Care Team (Late st Contact Info) Description 11/11/2012 Telephone [facility] Pediatrics - GI [address] [place] [phone] Felipe Mon MD [address] [place] [phone] Update Social History Tobacco Use Types Packs/Day Years [...] encounter Miscellaneous Notes * Telephone Encounter - Felipe Mon MD - 11/11/2012 1:45 PM CST Niurka, I spoke with Dr. Chavez from hematology. He has had an increasing ALT. EBV remains low. I suggest weget a current prograft level and repeat a liver panel at the same time. Also plan a ultrasound abdomen with doppler. Should transaminases remain high we should plan a liver biopsy. AD SINGER documented in this encounter Plan of Treatment Not on file documented as of this encounter Visit Diagnoses Not on filedocumented in this encounter Care Teams Loom Cleaner Relationship Specialty Start Date End Date Vilma Spangler MD [address] [facility] [address] [place] [address] PCP - General 01/05/11 documented as of this encounter
--- OUTSIDE RECORDS SUMMARY | 2024-10-28 05:56 | XMS_ITS | Encounter Summary ---
Author Organization [facility] Address [address] [place] [address] Care Team Providers Care Lead Database Developer Name Role Phone Vilma Spangler MD Primary Care Provider [phone] Encounter Details Date Type Department Care Team (Latest Contact Info) Description 12/22/2012 7:44 AM AGRICULTURE LABORATORY TECHNICIAN - 12/22/2012 11:59 PM AGRICULTURE LABORATORY TECHNICIAN Hospital Encounter The [facility] at [address] [address] Cindi Malloy MD [address] [place] [phone] Discharge Disposition: Home or Self Care Social [...] Sign Reading Time Taken Comments Blood Pressure 95/60 12/22/2012 8:16 AM AGRICULTURE LABORATORY TECHNICIAN Pulse 69 12/22/2012 8:16 AM AGRICULTURE LABORATORY TECHNICIAN Temperature 36.6 ??C (97.8 ??F) 12/22/2012 8:16 AM CS T Respiratory Rate 16 12/22/2012 8:16 AM AGRICULTURE LABORATORY TECHNICIAN Oxygen Saturation - - Inhaled Oxygen Concentration - - Weight 55.7 kg (122 lb 12.7 oz) 12/22/2012 8:16 AM AGRICULTURE LABORATORY TECHNICIAN Height 169.5 cm (5' 6.73 ) 12/22/2012 8:16 AM CS T Body Mass Index 19.39 12/22/2012 8:16 AM AGRICULTURE LABORATORY TECHNICIAN documented in this encounter Medications at Time [...] 30 days. 60 Cap 0 12/28/2012 01/30/2013 tacrolimus (PROGRAF) 1 MG capsule Take 1 Cap by mouth 2 times daily. 60 Cap 6 03/14/2012 12/28/2012 valGANciclovir (VALCYTE) 450 MG tablet Take 1 Tab by mouth daily with breakfast for 45 days. 45 Tab 0 12/28/2012 01/30/2013 documented as of this encounter Progress Notes * Leyla Vargas RN - 12/22/2012 10:02 AM CST Patient here with mother for scheduled Pre-Op labs only. Scheduled to have his spleen removed tomorrow. Blood sample for CBC obtained from his left AC using a 23 Gauge butterfly needle. Band-Aid applied. PLT [address] Houston Fung's nurse, Masha Florentino, Clinical Nurse Specialist. Informed her about Beka's PLT count. No transfusion required. Surgery to proceed as planned. Patient and mother informed; they left clinic together. CULTURE LABORATORY TECHNICIAN documented in this encounter Miscellaneous Notes * Miscellaneous Scans - Document, Scanned - 01/18/2013 11:32 PM CDT documented in this encounter Plan of Treatment Not on file documented as of this encounter Procedures Procedure Name Priority Date/Time Associated Diagnosis Comments CBC W AUTO DIFFERENTIAL STAT 12/22/2012 7:54 AM AGRICULTURE LABORATORY TECHNICIAN ITP (idiopathic thrombocytopenic purpura) DIFFERENTIAL MANUAL Routine 12/22/2012 7 :54 AM AGRICULTURE LABORATORY TECHNICIAN ITP (idiopathic thrombocytopenic purpura) documented in this encounter Results * (ABNORMAL) CBC W AUTO DIFFERENTIAL (12/22/2012 7:[address] [facility]) WBC 5.9 4.4 - 10.7 x10^9/L 12/22/2012 8:11 AM [facility] RBC 4.75 3.80 - 5.40 x10^12/L 12/22/2012 8:11 AM [facility] Hemoglobin 15.3 12.0 - 17.6 g/dL 12/22/2012 8:11 AM [facility] Hematocrit 41.6 35.2 - 51.7 % 12/22/2012 8:11 AM [facility] MCV 87.6 80.7 - 98.3 fl 12/22/2012 8:11 AM [facility] MCH 32.2 26.7 - 34.0 pg 12/22/2012 8:11 AM [facility] MCHC 36.8(H) 30.8 - 35.9 gm/dL 12/22/2012 8:11 AM [facility] RDW-CV 12.8 12.1 - 14.9 % 12/22/2012 8:11 AM [facility] MPV 10.7 9.4 - 12.9 fl 12/22/2012 8:11 AM [facility] Neutrophils % 59 44 - 73 % 12/22/2012 8:11 AM [facility] Lymphocytes % 23 20 - 43 % 12/22/2012 8:11 AM [facility] Monocytes % 16(H) 5 - 13 % 12/22/2012 8:11 AM [facility] Eosinophils % 3 0 - 6 % 12/22/2012 8:11 AM [facility] Basophils % 0 0 - 2 % 12/22/2012 8:11 AM [facility] Immature Granulocytes 0.5 0 - 1 % 12/22/2012 8:11 AM [facility] Neutrophil Absolute 3.46 2.01 - 7.14 x10^9/L 12/22/2012 8:11 AM [facility] Lymphocytes Absolute 1.35 1.07 - 3.94 x10^9/L 12/22/2012 8:11 AM [facility] Monocytes Absolute 0.92 0.26 - 1.07 x10^9/L 12/22/2012 8:11 AM [facility] Eosinophils Absolute 0.15 0 - 0.47 x10^9/L 12/22/2012 8:11 AM [facility] Basophils Absolute 0.01 0 - 0.08 x10^9/L 12/22/2012 8:11 AM [facility] Immature Granulocytes Absolute 0.03 0.00 - 0.06 x10^9/L 12/22/2012 8:11 AM [facility] Hematology Reflex Status Manual Diff to follow (none) 12/22/2012 8:11 AM [facility] Platelet Count 92(L) 153 - 416 x10^9/L 12/22/2012 8:11 AM [facility] Blood specimen (specimen) BLOOD SPECIMEN / Unknown 12/22/2012 7:[address] [facility] 12/22/2012 8:[address] [facility] Cindi Malloy MD LAB - HEMATOLOGY ORD ERABLES Performing Organization Address City/State/[facility] Co de Phone Number [facility] [place] [address] * (ABNORMAL) DIFFERENTIAL MANUAL (12/22/2012 7:[address] [facility]) WBC Auto 5.9 4.4 - 10.7 X(10)9/L 12/22/2012 8:29 AM [facility] Neutrophil % Manual 57 44 - 73 % 12/22/2012 8:29 AM [facility] Lymphocytes % Manual 18(L) 20 - 43 % 12/22/2012 8:29 AM [facility] Monocytes % Manual 15(H) 5 - 13 % 12/22/2012 8:29 AM [facility] Eosinophils % Manual 2 0 - 6 % 12/22/2012 8:29 AM [facility] Atypical Lymphocyte % Manual 7(H) <=0 % 12/22/2012 8:29 AM [facility] Band % Manual 1 0 - 11 % 12/22/2012 8:29 AM [facility] Cells Counted 100 # cells 12/22/2012 8:29 AM [facility] Platelet Estimation Decreased 12/22/2012 8:29 AM [facility] WBC Morph Normal 12/22/2012 8:29 AM [facility] Anisocytosis Slight 12/22/2012 8:29 AM AGRICULTURE LABORATORY TECHNICIAN [facility] Blood specimen (specimen) BLOOD SPECIMEN / Unknown 12/22/2012 7:54 AM AGRICULTURE LABORATORY TECHNICIAN 12/22/2012 8:02 AM AGRICULTURE LABORATORY TECHNICIAN Cindi Malloy MD LAB - HEMATOLOGY ORD ERABLES [facility] [address] [place] [address] documented in this encounter Visit Diagnoses Diagnosis ITP (idiopathic thrombocytopenic purpura) (HCC) Immune thrombocytopenic purpura documented in this encounter Care Teams Lead Database Developer Relationship Specialty Start Date End Date Vilma Spangler MD [address] [place], [place] [id number] PCP - General 01/05/11 documented as of this encounter
--- OUTSIDE RECORDS SUMMARY | 2024-10-28 05:56 | XMS_ITS | Encounter Summary ---
Author Organization [facility] Address [address] [place] [address] Care Team Providers Care Production Floater Name Role Phone Vilma Spangler MD Primary Care Provider +1- [phone] Reason for Referral * - Closed Specialty Diagnoses / Procedures Referred By Sascha rey Referred To Contact Diagnoses Primary thrombocytopenia, unspecified (HCC) Procedures US ABDOMEN LIMITED Omar Moreland MD [address] [place] [address] [phone] Referral ID Status Reason Start Date Expiration Date Visits Re quested Visits Authorized [id number] Closed 12/28/2012 06/26/2013 1 1 MATCHER Reason for Visit * - Closed Specialty Diagnoses / Procedures Referred By Sascha rey Referred To Contact Diagnoses Primary thrombocytopenia, unspecified (HCC) Procedures ABDOMEN LIMITED Omar Moreland MD [address] [place] [address] [phone] Referral ID Status Reason Start Date Expiration Date Visits Re quested Visits Authorized [id number] Closed 12/28/2012 06/26/2013 1 1 Encounter Details Date Type Department Care Team (Latest Contact Info) Description 01/02/2013 7:22 AM LENS MATCHER - 01/02/2013 8:14 AM LENS MATCHER Hospital Encounter [facility] - [address] [address] Omar Moreland MD [address] [place] [address] Discharge Disposition: Home or Self Care Social [...] 12/28/2012 01/30/2013 documented as of this encounter Miscellaneous Notes * Miscellaneous Scans - Document, Scanned - 02/01/2013 8:59 AM CDT * Miscellaneous Scans - Document, Scanned - 01/24/2013 3:42 PM CDT documented in this encounter Plan of Treatment Not on file documented as of this encounter Procedures Procedure Name Priority Date/Time Associated Diagnosis Comments US ABDOMEN LIMITED Routine 01/02/2013 8: 10 AM LENS MATCHER Primary thrombocytopenia, unspecified (HCC) documented in this encounter Results * US ABDOMEN LIMITED (01/02/2013 8:10 AM LENS MATCHER) Anatomical Region Laterality Modality Abdomen Ultrasound 01/02/2013 8:18 AM LENS MATCHER Impressions 01/02/2013 8:18 AM LENS MATCHER No evidence of significant left flank fluid with a drain in place as described above. Narrative 01/02/2013 8:18 AM LENS MATCHER Survey sonogram of the abdomen dated Jan [...] appear grossly unremarkable. Procedure Note Joshua Scott Radhames - 01/02/2013 Survey sonogram of the abdomen [...] as described above. Omar Moreland MD ORDERABLES documented in this encounter Visit Diagnoses Diagnosis Primary thrombocytopenia, unspecified (HCC) Primary thrombocytopenia, unspecified documented in this encounter Care Teams Production Floater Relationship Specialty Start Date End Date Vilma Spangler MD [address] [place] [address] PCP - General 01/05/11 documented as of this encounter
--- OUTSIDE RECORDS SUMMARY | 2024-10-28 05:56 | XMS_ITS | Encounter Summary ---
Author Organization [facility] Address [address] [place] [address] Care Team Providers Care Metallurgist Helper Name Role Phone Vilma Spangler MD Primary Care Provider +1- [phone] Reason for Visit * Reason Onset Date Comments Results 03/02/2013 Encounter Details Date Type Department Care Team (Late st Contact Info) Description 03/02/2013 Telephone [facility] [address] [place] [address] Batool Mcdermott, RN Results Social History Tobacco [...] Telephone Encounter - Batool Mcdermott, RN - 03/02/2013 8:22 AM CDT Lab results reviewed by Dr. Mon. Called Beka's mom to tell her Beka's liver panel looks good and EBV remains negative. Mom states Beka is due to come back to [facility] for labs in March. Told mom we will check a tacrolimus level at that time as well as usual standing labs. Will call her with results once reviewed. Mom verbalized understanding. documented in this encounter Plan of Treatment Not on file documented as of this encounter Visit Diagnoses Not on filedocumented in this encounter Care Teams Metallurgist Helper Relationship Specialty Start Date End Date Vilma Spangler MD [address] [place], [place] [id number] PCP - General 01/05/11 documented as of this encounter
--- OUTSIDE RECORDS SUMMARY | 2024-10-28 05:56 | XMS_ITS | Encounter Summary ---
Author Organization [facility] Address [address] [facility] [place] [address] Care Team Providers Care Workers Compensation Claims Specialist Name Role Phone Vilma Spangler MD Primary Care Provider +1- [phone] Reason for Visit * Reason Onset Date Comments MEDICATION REFILL 01/30/2013 Encounter Details Date Type Department Care Team (Late st Contact Info) Description 01/30/2013 Refill [facility] - [address] [address] Felipe Mon MD [address] [place] [address] MEDICATION REFILL Social History Tobacco Use Types [...] transplant documented in this encounter Care Teams Workers Compensation Claims Specialist Relationship Specialty Start Date End Date Vilma Spangler MD [address] [address] PCP - General 01/05/11 documented as of this encounter
--- OUTSIDE RECORDS SUMMARY | 2024-10-28 05:56 | XMS_ITS | Encounter Summary ---
Author Organization [facility] Address [address] [place] [address] Care Team Providers Care Operations Forester Name Role Phone Vilma Spangler MD Primary Care Provider +- [phone] Reason for Visit * (Routine) - Closed Specialty Diagnoses / Procedures Referred By Sascha t Referred To Contact [facility] [address] [address] Referral ID Status Reason Start Date Expiration Date Visits Re quested Visits Authorized [id number] Closed 12/20/2012 06/14/2013 1 1 Encounter Details Date Type Department Care Team (Late st Contact Info) Description 12/20/2012 7:55 AM STAMP COLLECTOR - 12/20/2012 11:59 PM STAMP COLLECTOR Hospital Encounter [facility] at [address] [address] Philip Chavez MD [address] [place] [phone] Discharge Disposition: Home or Self Care Social [...] Sign Reading Time Taken Comments Blood Pressure 106/54 12/20/2012 2:55 PM STAMP COLLECTOR Pulse 80 12/20/2012 2:55 PM STAMP COLLECTOR Temperature 36.7 ??C (98 ??F) 12/20/2012 2:55 PM STAMP COLLECTOR Respiratory Rate 18 12/20/2012 2:55 PM STAMP COLLECTOR Oxygen Saturation 97% 12/20/2012 8:23 AM STAMP COLLECTOR Inhaled Oxygen Concentration - - Weight 55.6 kg (122 lb 9.2 oz) 12/20/2012 8:23 A M STAMP COLLECTOR Height 169.5 cm (5' 6.73 ) 12/20/2012 8:23 AM CS T Body Mass Index 19.35 12/20/2012 8:23 AM STAMP COLLECTOR documented in this encounter Discharge Instructions * Patient Instructions* Ileana Castillo RN - 12/20/2012 3:05 PM STAMP COLLECTOR Discharge Instructions for: Beka Nichols No discharge procedures on file. The following belonging have been returned to you If your child has any worsening of his or her condition, please call your primary care doctor (or their exchange if after hours) or return to the ED if your primary care doctor cannot be reached. 12/20/2012 P COLLECTOR * Discharge Instructions* Document, Scanned - 12/21/2012 5:06 AM STAMP COLLECTOR P COLLECTOR documented in this encounter Medications at Time [...] as of this encounter Progress Notes * Ileana Castillo RN - 12/20/2012 9:31 AM CST Patient came to clinic accompanied by mother for scheduled IVIG infusion. Triaged and assessed uponarrival. Subha Caldwell RN placed patient's PIV in left AC. Labs obtaned. Dr. Chavez examined patient. Premedicated with 650 mg Tylenol and 50 mg Benadryl per MD order. IVIG line primed with D5. IVIG titrated per order. VS stable and monitored throughout infusion. Flushed with D5. PIV discontinued and band-aid applied. Patient will return to clinic for pre-surgery labs. Discharged home, accompanied by mother. P COLLECTOR * Philip Chavez MD - 12/20/2012 8:48 AM CST Beka has been feeling very tired over the last couple weeks. Slight URI recently as have other family members. No fevers. No GI issues. Appetite is OK. No rash. No pain. Voiding and stooling well. Petechia on arms after wrestling with brother recently Current Outpatient Prescriptions on File Prior to Encounter Medication Sig Dispense Refill ??? tacrolimus (PROGRAF) 1 MG capsule Take 1 Cap by mouth 2 times daily. 60 Cap 6 ??? acetaminophen (TYLENOL) 325 MG tablet Take 325 mg by mouth every 4 hours as needed. Maximum allowable Acetaminophen amount = 4 Grams (4000 mg) / 24 hours. BP 104/58 Pulse 68 Temp 97.6 ??F Resp 16 Wt 55.6 kg (122 lb 9.2 oz) BMI 19.35 kg/m2 Awake and alert Lungs clear Heart Regular OP clear No rash Petechia in patches on arms Recent Results (from the past 72 hour(s)) DIFFERENTIAL MANUAL Collection Time 12/20/12 9:29 AM Component Value Range WBC Auto 7.6 4.4-10.7 X(10)9/L Neutro Manual 67 44-73 % Lymph Manual 12 (*) 20-43 % Sequoyah Manual 12 5-13 % Eos Manual 3 0-6 % Atyp Lymph Manual 5 (*) <=0 % Band Manual 1 0-11 % Cells Counted 100 Plt Est Decreased WBC Morph Normal Anisocytosis Slight Poikilocytosis Slight CBC W AUTO DIFFERENTIAL Collection Time 12/20/12 9:29 AM Component Value Range WBC 7.6 4.4-10.7 x10^9/L RBC 5.24 3.80-5.40 x10^12/L Hgb 16.8 12.0-17.6 g/dL HCT 46.2 35.2-51.7 % MCV 88.2 80.7-98.3 fl MCH 32.1 26.7-34.0 pg MCHC 36.4 (*) 30.8-35.9 gm/dL RDW-CV 12.9 12.1-14.9 % Neutro 64 44-73 % Lymph 17 (*) 20-43 % Sequoyah 14 (*) 5-13 % Eos 4 0-6 % Baso 0 0-2 % Immature Grans 0.3 0-1 % Neutro Abs 4.60 2.01-7.14 x10^9/L Lymph Abs 1.23 1.07-3.94 x10^9/L Sequoyah Abs 1.03 0.26-1.07 x10^9/L Eosin Abs 0.26 0-0.47 x10^9/L Baso Abs 0.02 0-0.08 x10^9/L Immature Grans Abs 0.02 0.00-0.06 x10^9/L Hemo Reflex Status Manual Diff to follow (none) Plt Ct 25 (*) 153-416 x10^9/L COMPREHENSIVE METABOLIC PANEL Collection Time 12/20/12 9:29 AM Component Value Range Glucose 90 70-105 mg/dL Sodium 142 136-145 mmol/L Potassium 4.0 3.5-5.1 mmol/L Chloride 109 (*) 98-107 mmol/L CO2 20 (*) 22-29 mmol/L Calcium 8.93 (*) 9.08-10.48 mg/dL Anion Gap 13 5-20 mmol/L BUN 11.3 5.3-18.7 mg/dL Creatinine 0.85 0.61-1.07 mg/dL eGFR by MDRD >60 >60 ml/min/1.73m2 eGFR by MDRD AFR AMER >60 >60 ml/min/1.73m2 Alk Phos 142 (*) 39-139 U/L ALT/SGPT 40 6-46 U/L AST/SGOT 38 8-42 U/L Protein Total 7.2 6.3-8.2 gm/dL Albumin 4.2 3.3-4.9 gm/dL Bili Total 0.6 0.3-1.2 mg/dL A/P 1. 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 Historically difficult to manage with IVIG and corticosteroids. Responding to IVIG recently but response relatively short lived. Planned for Splenectomy later this week. IVIG today with platelet count of 25. Repeat platelets on . 2. 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 Requires IVIG replacement every 4-6 weeks. 3. H/O liver transplant: On tacrolimus. LFTs good 4. 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 P COLLECTOR documented in this encounter Miscellaneous Notes * Miscellaneous Scans - Document, Scanned - 01/19/2013 6:55 AM CDT documented in this encounter Plan of Treatment Not on file documented as of this encounter Procedures Procedure Name Priority Date/Time Associated Diagnosis Comments JOSE-DE LA CRUZ VIRUS PCR QUANT BLOOD/CSF Routine 12/20/2012 9:29 AM [facility] ITP (idiopathic thrombocytopenic purpura) CBC W AUTO DIFFERENTIAL STAT 12/20/2012 9:29 AM STAMP COLLECTOR ITP (idiopathic thrombocytopenic purpura) COMPREHENSIVE METABOLIC PANEL STAT 12/20/2012 9:29 AM STAMP COLLECTOR ITP (idiopathic thrombocytopenic purpura) DIFFERENTIAL MANUAL Routine 12/20/2012 9 :29 AM [facility] ITP (idiopathic thrombocytopenic purpura) documented in this encounter Results * (ABNORMAL) COMPREHENSIVE METABOLIC PANEL (12/20/2012 9:29 AM [facility]) [facility] Glucose 90 70 - 105 mg/dL 12/20/2012 10:01 AM [facility] Sodium 142 136 - 145 mmol/L 12/20/2012 10:01 AM [facility] Potassium 4.0 3.5 - 5.1 mmol/L 12/20/2012 10:01 AM [facility] Chloride 109(H) 98 - 107 mmol/L 12/20/2012 10:01 AM [facility] CO2 20(L) 22 - 29 mmol/L 12/20/2012 10:01 AM [facility] Calcium 8.93(L) 9.08 - 10.48 mg/dL 12/20/2012 10:01 AM [facility] Anion Gap 13 5 - 20 mmol/L 12/20/2012 10:01 AM [facility] BUN 11.3 5.3 - 18.7 mg/dL 12/20/2012 10:01 AM [facility] Creatinine 0.85 0.61 - 1.07 mg/dL 12/20/2012 10:01 AM [facility] eGFR by MDRD >60 >60 ml/min/1.7 3m2 12/20/2012 10:01 AM [facility] eGFR by MDRD >60 >60 ml/min/1.7 3m2 12/20/2012 10:01 AM [facility] Alkaline Phosphatase 142(H) 39 - 139 U/L 12/20/2012 10:01 AM [facility] ALT 40 6 - 46 U/L 12/20/2012 10:01 AM [facility] AST 38 8 - 42 U/L 12/20/2012 10:01 AM [facility] Protein Total 7.2 6.3 - 8.2 gm/dL 12/20/2012 10:01 AM [facility] Albumin 4.2 3.3 - 4.9 gm/dL 12/20/2012 10:01 AM [facility] Bilirubin Total 0.6 0.3 - 1.2 mg/dL 12/20/2012 10:01 AM [facility] Blood specimen (specimen) BLOOD SPECIMEN / Unknown 12/20/2012 9:29 AM [facility] 12/20/2012 9:34 AM [facility] Philip Chavez MD LAB - CHEMISTRY O RDERABLES Performing Organization Address City/State/[facility] Co de Phone Number [facility] [address] [place] [address] * (ABNORMAL) CBC W AUTO DIFFERENTIAL (12/20/2012 9:29 AM [facility]) WBC 7.6 4.4 - 10.7 x10^9/L 12/20/2012 10:10 AM [facility] RBC 5.24 3.80 - 5.40 x10^12/L 12/20/2012 10:10 AM [facility] Hemoglobin 16.8 12.0 - 17.6 g/dL 12/20/2012 10:10 AM [facility] Hematocrit 46.2 35.2 - 51.7 % 12/20/2012 10:10 AM [facility] MCV 88.2 80.7 - 98.3 fl 12/20/2012 10:10 AM [facility] MCH 32.1 26.7 - 34.0 pg 12/20/2012 10:10 AM [facility] MCHC 36.4(H) 30.8 - 35.9 gm/dL 12/20/2012 10:10 AM [facility] RDW-CV 12.9 12.1 - 14.9 % 12/20/2012 10:10 AM [facility] Neutrophils % 64 44 - 73 % 12/20/2012 10:10 AM [facility] Lymphocytes % 17(L) 20 - 43 % 12/20/2012 10:10 AM [facility] Monocytes % 14(H) 5 - 13 % 12/20/2012 10:10 AM [facility] Eosinophils % 4 0 - 6 % 12/20/2012 10:10 AM [facility] Basophils % 0 0 - 2 % 12/20/2012 10:10 AM [facility] Immature Granulocytes 0.3 0 - 1 % 12/20/2012 10:10 AM [facility] Neutrophil Absolute 4.60 2.01 - 7.14 x10^9/L 12/20/2012 10:10 AM [facility] Lymphocytes Absolute 1.23 1.07 - 3.94 x10^9/L 12/20/2012 10:10 AM [facility] Monocytes Absolute 1.03 0.26 - 1.07 x10^9/L 12/20/2012 10:10 AM [facility] Eosinophils Absolute 0.26 0 - 0.47 x10^9/L 12/20/2012 10:10 AM [facility] Basophils Absolute 0.02 0 - 0.08 x10^9/L 12/20/2012 10:10 AM [facility] Immature Granulocytes Absolute 0.02 0.00 - 0.06 x10^9/L 12/20/2012 10:10 AM [facility] Hematology Reflex Status Manual Diff to follow (none) 12/20/2012 10:10 AM [facility] Platelet Count 25(L) 153 - 416 x10^9/L 12/20/2012 10:10 AM [facility] Comment:This is an appended report. These results have been appended to a previously preliminary verified report. Blood specimen (specimen) BLOOD SPECIMEN / Unknown 12/20/2012 9:29 AM [facility] 12/20/2012 9:35 AM [facility] Philip Chavez MD LAB - HEMATOLOGY ORDERABLES Performing Organization Address City/State/[facility] Co de Phone Number [facility] [address] [place] [address] * (ABNORMAL) JOSE-BAR VIRUS PCR QUANTITATIVE BLOOD (12/20/2012 9:29 AM [facility]) [facility] Jose-De La Cruz Virus DNA PCR Quantitative POSITIVE for EBV DNA but below level of accurate quantitatio n(A) No EBV DNA detected 12/21/2012 7:09 AM [facility] Blood specimen (specimen) BLOOD SPECIMEN / Unknown 12/20/2012 9:29 AM [facility] 12/20/2012 9:34 AM [facility] Narrative [facility] - 12/21/2012 7:09 AM [facility] This assay has a lower limit of [...] ??EBV levels can vary by ??specimen type: [facility] uses whole blood which is [...] - MICROBIOLOG Y ORDERABLES Performing Organization Address City/State/[facility] Co de Phone Number [facility] [address] [place] [address] * (ABNORMAL) DIFFERENTIAL MANUAL (12/20/2012 9:29 AM [facility]) WBC Auto 7.6 4.4 - 10.7 X(10)9/L 12/20/2012 10:10 AM [facility] Neutrophil % Manual 67 44 - 73 % 12/20/2012 10:10 AM [facility] Lymphocytes % Manual 12(L) 20 - 43 % 12/20/2012 10:10 AM [facility] Monocytes % Manual 12 5 - 13 % 2012 10:10 AM [facility] Eosinophils % Manual 3 0 - 6 % 12/20/2012 10:10 AM [facility] Atypical Lymphocyte % Manual 5(H) <=0 % 12/20/2012 10:10 AM [facility] Band % Manual 1 0 - 11 % 12/20/2012 10:10 AM [facility] Cells Counted 100 # cells 12/20/2012 10:10 AM [facility] Platelet Estimation Decreased 12/20/2012 10:10 AM [facility] WBC Morph Normal 12/20/2012 10:10 AM [facility] Anisocytosis Slight 12/20/2012 10:10 AM [facility] Poikilocytosis Slight 12/20/2012 10:10 AM STAMP COLLECTOR [facility] Blood specimen (specimen) BLOOD SPECIMEN / Unknown 12/20/2012 9:29 AM STAMP COLLECTOR 12/20/2012 9:35 AM STAMP COLLECTOR Philip Chavez MD LAB - HEMATOLOGY ORDERABLES [facility] [address] [place] [address] documented in this encounter Visit Diagnoses Diagnosis ITP (idiopathic thrombocytopenic purpura) (HCC) Immune thrombocytopenic purpura Anemia, unspecified History of liver transplant (HCC) Liver replaced by transplant Hypogammaglobulinemia (HCC) Hypogammaglobulinaemia, unspecified documented in this encounter Administered Medications Inactive Administered Medications - up to 3 most recent administrations Medication Order MAR Action Action Date Dose Rate Site acetaminophen (TYLENOL) tablet 650 mg 650 mg, Oral, ONCE, 1 dose, On Wed12/20/12 at 0915, Administer one (1) hour prior to IVIG administration. $ Given 12/20/2012 10:18 AM STAMP COLLECTOR 650 mg diphenhydrAMINE (BENADRYL) tablet 50 mg 50 mg, Oral, ONCE, 1 dose, On Wed12/20/12 at 0915, Administer one (1) hour prior to IVIG administration. $ Given 12/20/2012 10:18 AM STAMP COLLECTOR 50 mg immune globulin (human) (PRIVIGEN) 10 % infusion 55 g 55 g, Intravenous, CONTINUOUS, Starting on Wed12/20/12 at 0930, Until Wed12/20/12 at 1129, Intravenous, CONTINUOUS for 2 hours, Initiate infusion [...] at one half the previous rate. $ New Bag/Syringe 12/20/2012 10:35 AM STAMP COLLECTOR 55 g 33 mL/hr documented in this encounter Care Teams Operations Forester Relationship Specialty Start Date End Date Vilma Spangler MD [address] [address] PCP - General 01/05/11 documented as of this encounter
--- OUTSIDE RECORDS SUMMARY | 2024-10-28 05:56 | XMS_ITS | Encounter Summary ---
Author Organization [facility] Address [address] [place] [address] Care Team Providers Care Developing Machine Tender Name Role Phone Vilma Spangler MD Primary Care Provider +1- [phone] Encounter Details Date Type Department Care Team (Late st Contact Info) Description 12/30/2012 Orders Only [facility] - Transplant Services [address] [place] [address] Batool Mcdermott, RN Social History Tobacco Use Types Packs/Day Years [...] on filedocumented in this encounter Care Teams Developing Machine Tender Relationship Specialty Start Date End Date Vilma Spangler MD [address] [place] [address] PCP - General 01/05/11 documented as of this encounter
--- OUTSIDE RECORDS SUMMARY | 2024-10-28 05:56 | XMS_ITS | Encounter Summary ---
Author Organization [facility] Address [address] [facility] [place] [address] Care Team Providers Care Can Labeler Name Role Phone Vilma Spangler MD Primary Care Provider +1- [phone] Reason for Visit * Reason Comments Surgical Follow-up Possible drain remov al Encounter Details Date Type Department Care Team (Late st Contact Info) Description 01/02/2013 9:16 AM SEXUAL ASSAULT COUNSELLOR - 01/02/2013 11:59 PM [facility] Hospital Encounter [facility] Pediatrics - Surgery [address] [place] [address] Yumiko Neely MD [address] [place] [address] [place] [address] Discharge Disposition: Home or Self Care Social [...] as of this encounter Progress Notes * Yumiko Neely MD - 01/02/2013 3:37 PM CST Pediatric Surgery Clinic Visit Beka Nichols 17 y.o. male 1995 Vilma Spangler History: Beka Nichols is a 17 y.o. male s/p splenectomy for ITP. Pt is seen in the office today following hospital discharge. A drain remains in place, located within the splenic fossa at the tail of the pancreas. Prior to the office visit today an ultrasound of the abdomen was performed which did not demonstrate a significant fluid collection. Serum and drain fluid amylase and lipase levels were similar. His 24 hour drain outputs for the last 5 days have been 9/10/8/6/5 mL. He also complains of decreased appetite. This has been diminished since the time of his surgery and may be beginning to improve. Exam: There were no vitals taken for this visit. NAD Abd: Nt/nd, incision healing well - suture spitting from left latera aspect. TATI drain in place withserous fluid. Serum: Amylase 56; Lipase 48 Drain fluid: Amylase 41; Lipase 80 Assessment & Plan: Beka is a 17 y.o. male with s/p splenectomy for ITP. His TATI drain was removed in clinic today. Improvement of his appetite is expected as post-surgical inflammation continues to resolve. Will plan for follow-up in [address] Fung or sooner if issues or concerns arise. Yumiko Neely MD 01/02/2013 3:38 PM AL ASSAULT COUNSELLOR documented in this encounter Plan of Treatment Not on file documented as of this encounter Visit Diagnoses Not on filedocumented in this encounter Care Teams Can Labeler Relationship Specialty Start Date End Date Vilma Spangler MD [address] [place] [id number] PCP - General 01/05/11 documented as of this encounter
--- OUTSIDE RECORDS SUMMARY | 2024-10-28 05:56 | XMS_ITS | Encounter Summary ---
Author Organization [facility] Address [address] [facility] [address] Care Team Providers Care Electrical Maintenance Technician Name Role Phone Vilma Spangler MD Primary Care Provider +1- [phone] Encounter Details Date Type Department Care Team (Late st Contact Info) Description 12/28/2012 Orders Only [facility] Pediatrics - Surgery [address] [place] [address] Gregory Fung MD [address] [place] [address] Social History Tobacco Use Types Packs/Day Years [...] on filedocumented in this encounter Care Teams Electrical Maintenance Technician Relationship Specialty Start Date End Date Vilma Spangler MD [address] [address] PCP - General 01/05/11 documented as of this encounter
--- OUTSIDE RECORDS SUMMARY | 2024-10-28 05:56 | XMS_ITS | Encounter Summary ---
Author Organization [facility] Address [address] [place] [address] Care Team Providers Care Bss Solution Architect Name Role Phone Vilma Spangler MD Primary Care Provider [phone] Reason for Visit * Reason Comments Surgical Follow-up s/p splenectomy Encounter Details Date Type Department Care Team (Latest Contact Info) Description 01/19/2013 10:00 AM CDT - 01/19/2013 11:59 PM CDT Hospital Encounter [facility] Pediatrics - Surgery [address] [place] [address] Gregory Fung MD [facility] [place] [address] Discharge Disposition: Home or Self Care Social [...] as of this encounter Progress Notes * Gregory Fung MD - 01/19/2013 10:34 AM CDT Pediatric General and Thoracic Surgery Clinic [facility] [address] [place] [address] phone fax Houston Fung MD [facility] DATE: 01/19/2013 Dear Vilma Spangler, It was a pleasure seeing Beka Nichols in clinic today. As you know, he is a 17 y.o. male who I amseeing postoperatively for splenectomy and postop pancreatic drain that was removed last week. He has done very well postoperatively and has had no postoperative complaints. He has been feeling very well and is eager to return to his usual activities [facility]. Active Ambulatory Problems Diagnosis Date Noted ??? Hypogammaglobulinemia 02/17/2010 ??? 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 Cellulitis and abscess of face 03/08/2012 ??? Lymphadenopathy 03/08/2012 ??? History of liver transplant 05/18/2012 ??? 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 ITP (idiopathic thrombocytopenic purpura) 11/16/2012 Resolved Ambulatory Problems Diagnosis Date Noted ??? No Resolved Ambulatory Problems Past Medical History Diagnosis Date ??? Platelet disorder ??? Hx of liver transplant 1998 ??? Hepatitis ??? Unspecified disorder of liver ??? Complication of anesthesia Family History Problem Relation Age of Onset [...] Hx ??? Marfan Syndrome Neg Hx ??? OR Neg Hx ??? Osteoporosis Neg Hx ??? Scoliosis Neg Hx ??? Severe Sprains Neg Hx ??? Sickle Cell Anemia Neg Hx ? ? Sudd. <30 Neg Hx Current Outpatient Prescriptions on File Prior to Encounter Medication Sig Dispense Refill ??? valGANciclovir (VALCYTE) [...] (4000 mg) / 24 hours. Review of Symptoms: Per HPI History obtained from Beka and mom. On exam today, he is in no distress and appears comfortable. The head and neck exam revealed no evidence of trauma, normocephalic. HEENT exam showed moist mucous membranes and the extraocular movements are intact. The exam of the neck revealed no evidence of cervical adenopathy. The chest was symmetrical and the lung exam was clear to auscultation bilaterally. The heart is of regular rate and normal rhythm. The abdomen was soft , non tender, non distended, without evidence of hernia at the umbilicus or at the subcostal incision. His incisions are well healed, clean dry and intact without erythema or drainage. In summary, based on the above findings, Beka Nichols has done great from his splenectomy and hisplatelet count has normalized postop for which I am very pleased. He is is still at risk of developing postsplenectomy overwhelming infection (OPSI) and for this I typically prophylax with an antibiotic regimen. I recommend that he continue to be followed by the hematology team and they will managehis antibiotic plan per their established protocol. Otherwise, from a surgical standpoint, he has recovered well and does not need to see me further for this problem unless a new concern arises. Thank you for allowing me to participate in the care of Beka Nichols. If you have any questions or concerns, please feel free to contact me at your convenience. I spent 20 minutes with this patient. Houston Fung MD Pediatric General and Thoracic Surgery documented in this encounter Miscellaneous Notes * Miscellaneous Scans - Document, Scanned - 02/01/2013 1:54 PM CDT documented in this encounter Plan of Treatment Not on file documented as of this encounter Visit Diagnoses Diagnosis Follow-up examination, following other surgery documented in this encounter Care Teams Bss Solution Architect Relationship Specialty Start Date End Date Vilma Spangler MD [address] [place] [address] PCP - General 01/05/11 documented as of this encounter
--- OUTSIDE RECORDS SUMMARY | 2024-10-28 05:56 | XMS_ITS | Encounter Summary ---
Author Organization [facility] Address [address] [place] [address] Care Team Providers Care Shoe Repairer Name Role Phone Vilma Spangler MD Primary Care Provider [phone] Reason for Visit * Reason Onset Date Comments Surgery Rescheduled 12/15/2012 Encounter Details Date Type Department Care Team (Late st Contact Info) Description 12/15/2012 Telephone [facility] at [address] [address] Astrid Caldwell pulp grinder Rescheduled Social History Tobacco Use Types Packs/Day Years [...] encounter Miscellaneous Notes * Telephone Encounter - Astrid Caldwell RN - 12/15/2012 5:33 PM BONBON CREAM WARMER Masha Florentino RN from surgery called to report Beka's surgery has been changed to Saturday 12/23 at [address] Chavez regarding Beka's IVIG schedule. Dr. Chavez suggests giving IVIG on Wednesday 12/20, recheck cbc on in preparation for surgery on Friday 12/15. Mom notified and agrees with plan. ON CREAM WARMER documented in this encounter Plan of Treatment Not on file documented as of this encounter Visit Diagnoses Not on filedocumented in this encounter Care Teams Shoe Repairer Relationship Specialty Start Date End Date Vilma Spangler MD [address] [place] [address] PCP - General 01/05/11 documented as of this encounter
--- OUTSIDE RECORDS SUMMARY | 2024-10-28 05:56 | XMS_ITS | Encounter Summary ---
Author Organization [facility] Address [address] [place] [address] Care Team Providers Care Work Force Advisor Name Role Phone Vilma Spangler MD Primary Care Provider [phone] Reason for Visit * (Routine) - Closed Specialty Diagnoses / Procedures Referred By Sascha rey Referred To Contact Pediatric Hematology and Oncology / Oncology-Medical [facility] Cindi Malloy MD [address] [place] [phone] Referral ID Status Reason Start Date Expiration Date Visits Re quested Visits Authorized [id number] Closed 02/27/2013 08/26/2013 1 1 Encounter Details Date Type Department Care Team (Latest Contact Info) Description 02/27/2013 7:52 AM CDT - 02/27/2013 11:59 PM CDT Hospital Encounter [facility] at [address] [address] Cindi Malloy MD [address] [place] [phone] Discharge Disposition: Home or Self Care Social [...] Sign Reading Time Taken Comments Blood Pressure - - Pulse 80 02/27/2013 8:10 AM CDT Temperature 36.8 ??C (98.2 ??F) 02/27/2013 8:10 AM CD T Respiratory Rate 16 02/27/2013 8:10 AM CDT Oxygen Saturation 99% 02/27/2013 8:10 AM CDT Inhaled Oxygen Concentration - - Weight 54.5 kg (120 lb 2.4 oz) 02/27/2013 8:10 A M CDT Height 169.4 cm (5' 6.69 ) 02/27/2013 8:10 AM CD T Body Mass Index 18.99 02/27/2013 8:10 AM CDT documented in this encounter Medications at Time of Discharge Medication Sig Dispensed Refills Start Date End Date acetaminophen (TYLENOL) 325 MG tablet Take 325 mg by mouth every 4 hours as needed. Maximum allowable Acetaminophen amount = 4 Grams (4000 mg) / 24 hours. sulfamethoxazole-trim ethoprim (BACTRIM DS; SEPTRA DS) 800-160 MG tabletIndications:Silvia er replaced by transplant ([facility]) Take 1 Tab by mouth once daily. 30 Tab 4 01/30/2013 07/18/2013 tacrolimus (PROGRAF) 0.5 MG capsuleIndications:Li ruben replaced by transplant ([facility]) Take 1 Cap by mouth 2 times daily. 60 Cap 4 01/30/2013 07/18/2013 documented as of this encounter Progress Notes * Leida Marshall, RN,CPNP - 02/27/2013 8:52 AM CDT Hematology/Oncology Advanced Practice Nurse Note Name: Beka Nichols Date: 02/27/2013 Time of Note: 8:52 AM PCP: Vilma Spangler Diagnosis: Autoimmune Thrombocytopenia/Autoimmune [...] 4 Grams (4000 mg) / 24 hours. MEDICATIONS FOR CURRENT ENCOUNTER: ?? SCHEDULED MEDICATIONS: ?? CONTINUOUS MEDICATIONS: ?? PRN MEDICATIONS: ?? Review of Systems: 1) General Fever: no Wt/appetite change: no Other:no 2) Hem Bruising: denies Other:no 3) Skin Rash: no Other: no 4) ENT Congestion:no Rhinorrhea: no Epistaxis: no Sore Throat: no Change in Hearing: no Earache: no Stomatitis: no 5) Resp/CV Shortness of Breath: no Chest Pain: no Cough:no Palpitation: no Other: no 6) GI Pain: LLQ incision pain Jaundice: no Nausea: no Vomiting: no Diarrhea: no Constipation: no Other: no 7) Frequency: no Dysuria: no Menorrhagia/Dysmenorrhea: no Hematuria: no Other: no 8) Musculo-skeletal Pain: no Swelling/Edema: no Change in ROM: no Cyanosis: no Other: no 9) Neuro Headache: no Weakness: no Neuralgia: no Vertigo: no Seizure: no Other: no 10) Psych School Grade Behavior: no Other: no 11) Allergy/Immun no 12) Pain no 13) Nutritional Status good Interval History Pt here for scheduled labs and possible IVIG. Pt present with mom, Denies any recent fever, bleeding, or illness. Pt does report some petechae, but no bruises noted. None noted in the past week. 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 Otherwise felling well. Past Medical History: unchanged Family Medical History: unchanged Physical Exam Constitutional: Pulse 80 Temp 98.2 ??F Resp 16 Ht 1.694 m (5' 6.69 ) Wt 54.5 kg (120 lb 2.4 oz) BMI 18.99kg/m2 SpO2 99% Body surface area is 1.60 meters squared. General Appearance: Alert, cooperative Head: No nasal congestion or discharge Skin: no rashes, bruises, or petechiae noted Ears: tympanic membranes normal Eyes: anicteric: pupils equal, round, reactive to light; Mouth/throat: no sores, erythema, exudates, or mucosal pallor. Tonsils not enlarged. Neck: supple without masses Lymph nodes: no palpable lymphadenopathy Chest: lungs clear to auscultation Heart: normal S1 and S2, no murmur Back: no spinous or CVA tenderness Abdomen: soft, non-tender, no masses, abdominal incision intact, tender to left transverse incision Genitalia: deferred Extremities: no focal swelling or tenderness; full ROM Neuro: grossly intact Performance Score: [place]: 100 - fully active, normal Lab and/or Imaging Studies Recent Results (from the past 48 hour(s)) CBC W AUTO DIFFERENTIAL Collection Time 02/27/13 8:32 AM Component Value Range WBC 5.9 4.4-10.7 x10^9/L RBC 5.19 3.80-5.40 x10^12/L Hgb 16.3 12.0-17.6 g/dL HCT 45.9 35.2-51.7 % MCV 88.4 80.7-98.3 fl MCH 31.4 26.7-34.0 pg MCHC 35.5 30.8-35.9 gm/dL Plt Ct 367 153-416 x10^9/L RDW-CV 14.2 12.1-14.9 % MPV 10.1 9.4-12.9 fl Neutro 47 44-73 % Lymph 20 20-43 % [place] 30 (*) 5-13 % Eos 1 0-6 % Baso 1 0-2 % Immature Grans 1.2 (*) 0-1 % Neutro Abs 2.75 2.01-7.14 x10^9/L Lymph Abs 1.18 1.07-3.94 x10^9/L [place] Abs 1.77 (*) 0.26-1.07 x10^9/L Eosin Abs 0.04 0-0.47 x10^9/L Baso Abs 0.04 0-0.08 x10^9/L Immature Grans Abs 0.07 (*) 0.00-0.06 x10^9/L Hemo Reflex Status Manual Diff to follow (none) COMPREHENSIVE METABOLIC PANEL Collection Time 02/27/13 8:32 AM Component Value Range Glucose 104 70-105 mg/dL Sodium 142 136-145 mmol/L Potassium 4.0 3.5-5.1 mmol/L Chloride 108 (*) 98-107 mmol/L CO2 21 (*) 22-29 mmol/L Calcium 9.25 9.08-10.48 mg/dL Anion Gap 13 5-20 mmol/L BUN 12.6 5.3-18.7 mg/dL Creatinine 0.86 0.61-1.07 mg/dL eGFR by MDRD >60 >60 ml/min/1.73m2 eGFR by MDRD AFR AMER >60 >60 ml/min/1.73m2 Alk Phos 137 39-139 U/L ALT/SGPT 41 6-46 U/L AST/SGOT 35 8-42 U/L Protein Total 6.9 6.3-8.2 gm/dL Albumin 4.4 3.3-4.9 gm/dL Bili Total 0.2 (*) 0.3-1.2 mg/dL IMMUNOGLOBULINS PANEL Collection Time 02/27/13 8:32 AM Component Value Range IgA 6 (*) 63-484 mg/dL IgG 150 878-6486 mg/dL IgM 9 (*) 22-240 mg/dL MAGNESIUM BLOOD Collection Time 02/27/13 8:32 AM Component Value Range Magnesium mg/dL 2.2 1.6-2.6 mg/dL PHOSPHORUS BLOOD Collection Time 02/27/13 8:32 AM Component Value Range Phosphorus 3.89 2.76-5.14 mg/dL Procedures Assessment Beka Nichols is a 18 y.o. 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 The autoimmune process was felt to be secondary to chronic immune suppression coupled with reactivation of EBV. He ultimately responded to Rituximab with clearance of EBV and normalization of counts. 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 He was evaluated in early 2011 for [...] nicely. Platelets increased nicely. Plan 1. CBC, Immunoglobulin panel, CMP, Mg, Phos Follow-Up RTC in 1 month for Labs/possible IVIG infusion Mom to call in 2 weeks to report on pt status, may need f/u sooner Time spent reviewing records and seeing patient: 20 minutes Leida Marshall RN,CPNP * Ileana Goode APRN-CNP - 02/27/2013 8:47 AM CDT Pt arrived in clinic, triaged, and assessed by RN. Here for scheduled labs, visit, and possible IVIG. No complaints per patient to this RN. Left AC 22 gauge peripheral IV started by this RN without difficulty. Positive blood return noted and labs obtained. NS flushes easily and dressing applied. Examined per BRIANNA Monson who stated not to give IVIG since Patient's IgG level 670. PeripheralIV removed catheter intact and bandaid applied. Discharge instructions given to patient and mom to RTC in 1 month for visit, labs, and possible IVIG. Patient and his mom also instructed to call Xin in 2 weeks to let us know how he is feeling. Pt d/c'd home ambulatory with mom. documented in this encounter Miscellaneous Notes * Miscellaneous Scans - Document, Scanned - 03/23/2013 11:46 AM CDT * Miscellaneous Scans - Document, Scanned - 03/01/2013 3:08 PM CDT documented in this encounter Plan of Treatment Not on file documented as of this encounter Procedures Procedure Name Priority Date/Time Associated Diagnosis Comments NADINE-DE LA CRUZ VIRUS PCR QUANT BLOOD/CSF Routine 02/27/2013 8:32 AM CDT Hypogammaglobulinemia (HCC) Autoimmune hepatitis s/p liver transplant ITP (idiopathic thrombocytopenic purpura) CBC W AUTO DIFFERENTIAL ZAHRA 02/27/2013 8:32 AM CDT Hypogammaglobulinemia (HCC) Autoimmune hepatitis s/p liver transplant ITP (idiopathic thrombocytopenic purpura) COMPREHENSIVE METABOLIC PANEL ZAHRA 02/27/2013 8:32 AM CDT Hypogammaglobulinemia (HCC) Autoimmune hepatitis s/p liver transplant ITP (idiopathic thrombocytopenic purpura) PHOSPHORUS BLOOD ZAHRA 02/27/2013 8:32 AM CDT Hypogammaglobulinemia (HCC) Autoimmune hepatitis s/p liver transplant ITP (idiopathic thrombocytopenic purpura) MAGNESIUM BLOOD ZAHRA 02/27/2013 8:32 AM CDT Hypogammaglobulinemia (HCC) Autoimmune hepatitis s/p liver transplant ITP (idiopathic thrombocytopenic purpura) IMMUNOGLOBULINS IGG/IGM/IGA PANEL ZAHRA 02/27/2013 8:32 AM CDT Hypogammaglobulinemia (HCC) Autoimmune hepatitis s/p liver transplant ITP (idiopathic thrombocytopenic purpura) DIFFERENTIAL MANUAL Routine 02/27/2013 8 :32 AM CDT Hypogammaglobulinemia (HCC) Autoimmune hepatitis s/p liver transplant ITP (idiopathic thrombocytopenic purpura) documented in this encounter Results * NADINE-BAR VIRUS PCR QUANTITATIVE BLOOD (02/27/2013 8:32 AM CDT) [facility] Nadine-De La Cruz Virus DNA PCR Quantitative No EBV DNA detected No EBV DNA detected 02/28/2013 7:03 AM CDT [facility] Blood specimen (specimen) BLOOD SPECIMEN / Unknown 02/27/2013 8:32 AM CDT 02/27/2013 8:48 AM CDT Narrative [facility] - 02/28/2013 7:03 AM CDT This assay has a lower [...] ??EBV levels can vary by ??specimen type: [facility] uses whole blood which is more sensitive than plasma for detection of EBV DNA. ??Also, the lack of a universal quantitative standard contributes to interlaboratory variability. Therefore, caution should be exercised when attempting to compare results obtained from different laboratories. It is recommended that for tracking relative changes in EBV DNA levels in particular patient, the same laboratory should test the specimen. Cindi Malloy MD LAB - MICROBIOLOGY O SARAH Performing Organization Address [facility] de Phone Number [facility] [address] [place], [place] [id number] * PHOSPHORUS BLOOD (02/27/2013 8:32 AM CDT) Phosphorus 3.89 2.76 - 5.14 mg/dL 02/27/2013 9:51 AM CDT [facility] Blood specimen (specimen) BLOOD SPECIMEN / Unknown 02/27/2013 8:32 AM CDT 02/27/2013 9:28 AM CDT Cindi Malloy MD LAB - CHEMISTRY ORDKlbeer HERNÁNDEZ Performing Organization Address [facility] de Phone Number [facility] [address] [place] [address] * MAGNESIUM BLOOD (02/27/2013 8:32 AM CDT) Magnesium 2.2 1.6 - 2.6 mg/dL 02/27/2013 9:51 AM CDT [facility] Blood specimen (specimen) BLOOD SPECIMEN / Unknown 02/27/2013 8:32 AM CDT 02/27/2013 9:28 AM CDT Cindi Malloy MD LAB - CHEMISTRY ORDKleber HERNÁNDEZ Performing Organization Address [facility] Co de Phone Number [facility] [address] [place] [address] * (ABNORMAL) IMMUNOGLOBULINS PANEL (02/27/2013 8:32 AM CDT) IgA 6(L) 63 - 484 mg/dL 02/27/2013 9:50 AM CDT [facility] IgG 670 540 - 1,822 mg/dL 02/27/2013 9:50 AM CDT [facility] IgM 9(L) 22 - 240 mg/dL 02/27/2013 9:50 AM CDT [facility] Blood specimen (specimen) BLOOD SPECIMEN / Unknown 02/27/2013 8:32 AM CDT 02/27/2013 8:48 AM CDT Cindi Malloy MD LAB - CHEMISTRY ORDKleber KINGJIM Performing Organization Address [facility] de Phone Number [facility] [address] [place] [address] * (ABNORMAL) COMPREHENSIVE METABOLIC PANEL (02/27/2013 8:32 AM CDT) Glucose 104 70 - 105 mg/dL 02/27/2013 9:18 AM CDT [facility] Sodium 142 136 - 145 mmol/L 02/27/2013 9:18 AM CDT [facility] Potassium 4.0 3.5 - 5.1 mmol/L 02/27/2013 9:18 AM T [facility] Comment:Slight hemolysis. Chloride 108(H) 98 - 107 mmol/L 02/27/2013 9:18 AM T [facility] CO2 21(L) 22 - 29 mmol/L 02/27/2013 9:18 AM CDT [facility] Calcium 9.25 9.08 - 10.48 mg/dL 02/27/2013 9:18 AM T [facility] Anion Gap 13 5 - 20 mmol/L 02/27/2013 9:18 AM CDT [facility] BUN 12.6 5.3 - 18.7 mg/dL 02/27/2013 9:18 AM T [facility] Creatinine 0.86 0.61 - 1.07 mg/dL 02/27/2013 9:18 AM CDT [facility] eGFR by MDRD >60 >60 ml/min/1.7 3m2 02/27/2013 9:18 AM CDT [facility] eGFR by MDRD >60 >60 ml/min/1.7 3m2 02/27/2013 9:18 AM T [facility] Alkaline Phosphatase 137 39 - 139 U/L 02/27/2013 9:18 AM CDT [facility] ALT 41 6 - 46 U/L 02/27/2013 9:18 AM CDT [facility] AST 35 8 - 42 U/L 02/27/2013 9:18 AM T [facility] Protein Total 6.9 6.3 - 8.2 gm/dL 02/27/2013 9:18 AM T [facility] Albumin 4.4 3.3 - 4.9 gm/dL 02/27/2013 9:18 AM T [facility] Bilirubin Total 0.2(L) 0.3 - 1.2 mg/dL 02/27/2013 9:18 AM T [facility] Blood specimen (specimen) BLOOD SPECIMEN / Unknown 02/27/2013 8:32 AM CDT 02/27/2013 9:02 AM CDT Cindi Malloy MD LAB - CHEMISTRY MACIE HERNÁNDEZ [facility] Organization Address City/State/[facility] Co de Phone Number [facility] [place] [address] * (ABNORMAL) CBC W AUTO DIFFERENTIAL (02/27/2013 8:32 AM CDT) WBC 5.9 4.4 - 10.7 x10^9/L 02/27/2013 9:22 AM CDT [facility] RBC 5.19 3.80 - 5.40 x10^12/L 02/27/2013 9:22 AM CDT [facility] Hemoglobin 16.3 12.0 - 17.6 g/dL 02/27/2013 9:22 AM CDT [facility] Hematocrit 45.9 35.2 - 51.7 % 02/27/2013 9:22 AM CDT [facility] MCV 88.4 80.7 - 98.3 fl 02/27/2013 9:22 AM CDT [facility] MCH 31.4 26.7 - 34.0 pg 02/27/2013 9:22 AM [facility] MCHC 35.5 30.8 - 35.9 gm/dL 02/27/2013 9:22 AM [facility] Platelet Count 367 153 - 416 x10^9/L 02/27/2013 9:22 AM [facility] RDW-CV 14.2 12.1 - 14.9 % 02/27/2013 9:22 AM [facility] MPV 10.1 9.4 - 12.9 fl 02/27/2013 9:22 AM [facility] Neutrophils % 47 44 - 73 % 02/27/2013 9:22 AM [facility] Lymphocytes % 20 20 - 43 % 02/27/2013 9:22 AM [facility] Monocytes % 30(H) 5 - 13 % 02/27/2013 9:22 AM [facility] Eosinophils % 1 0 - 6 % 02/27/2013 9:22 AM [facility] Basophils % 1 0 - 2 % 02/27/2013 9:22 AM [facility] Immature Granulocytes 1.2(H) 0 - 1 % 02/27/2013 9:22 AM [facility] Neutrophil Absolute 2.75 2.01 - 7.14 x10^9/L 02/27/2013 9:22 AM [facility] Lymphocytes Absolute 1.18 1.07 - 3.94 x10^9/L 02/27/2013 9:22 AM [facility] Monocytes Absolute 1.77(H) 0.26 - 1.07 x10^9/L 02/27/2013 9:22 AM [facility] Eosinophils Absolute 0.04 0 - 0.47 x10^9/L 02/27/2013 9:22 AM [facility] Basophils Absolute 0.04 0 - 0.08 x10^9/L 02/27/2013 9:22 AM [facility] Immature Granulocytes Absolute 0.07(H) 0.00 - 0.06 x10^9/L 02/27/2013 9:22 AM [facility] Hematology Reflex Status Manual Diff to follow (none) 02/27/2013 9:22 AM [facility] Blood specimen (specimen) BLOOD SPECIMEN / Unknown 02/27/2013 8:32 AM CDT 02/27/2013 8:48 AM CDT Cindi Malloy MD LAB - HEMATOLOGY ORD ERABLES [facility] Flash Ericskon [facility] [place] [address] * (ABNORMAL) DIFFERENTIAL MANUAL (02/27/2013 8:32 AM CDT) WBC Auto 5.9 4.4 - 10.7 X(10)9/L 02/27/2013 9:57 AM CDT [facility] Neutrophil % Manual 35(L) 44 - 73 % 02/27/2013 9:57 AM CDT [facility] Lymphocytes % Manual 19(L) 20 - 43 % 02/27/2013 9:57 AM CDT [facility] Monocytes % Manual 26(H) 5 - 13 % 2012 9:57 AM CDT [facility] Eosinophils % Manual 1 0 - 6 % 02/27/2013 9:57 AM T [facility] Basophils % Manual 1 0 - 2 % 2012 9:57 AM CDT [facility] Atypical Lymphocyte % Manual 5(H) <=0 % 02/27/2013 9:57 AM T [facility] Band % Manual 13(H) 0 - 11 % 02/27/2013 9:57 AM T [facility] Cells Counted 100 # cells 02/27/2013 9:57 AM T [facility] WBC Morph Normal 02/27/2013 9:57 AM T [facility] Anisocytosis 1+(A) None 02/27/2013 9:57 AM T [facility] Poikilocytosis 1+(A) None 02/27/2013 9:57 AM T [facility] Tear Drop Cells Occasional (A) None 02/27/2013 9:57 AM T [facility] Blood specimen (specimen) BLOOD SPECIMEN / Unknown 02/27/2013 8:32 AM CDT 02/27/2013 8:48 AM CDT Cindi Malloy MD LAB - HEMATOLOGY ORD ERABLES [facility] [address] [place] [address] documented in this encounter Visit Diagnoses Diagnosis Hypogammaglobulinemia (HCC) Hypogammaglobulinaemia, unspecified Autoimmune hepatitis s/p liver transplant Autoimmune hepatitis ITP (idiopathic thrombocytopenic purpura) (HCC) Immune thrombocytopenic purpura documented in this encounter Care Teams Work Force Advisor Relationship Specialty Start Date End Date Vilma Spangler MD [address] [place] [address] PCP - General 01/05/11 documented as of this encounter
--- OUTSIDE RECORDS SUMMARY | 2024-10-28 05:56 | XMS_ITS | Encounter Summary ---
Author Organization [facility] Address [address] [place] [address] Care Team Providers Care Commercial Credit Analyst Name Role Phone Vilma Spangler MD Primary Care Provider Encounter Details Date Type Department Care Team (Latest Contact Info) Description 02/14/2013 8:00 AM CDT - 02/14/2013 11:59 PM CDT Hospital Encounter The [facility] at [address] [phone] Jason Fischer MD [address] [place] [phone] Discharge Disposition: Home or Self Care Social [...] Sign Reading Time Taken Comments Blood Pressure 110/63 02/14/2013 8:05 AM CDT Pulse 74 02/14/2013 8:05 AM CDT Temperature 36.3 ??C (97.4 ??F) 02/14/2013 8:05 AM CD T Respiratory Rate 12 02/14/2013 8:05 AM CDT Oxygen Saturation 100% 02/14/2013 8:05 AM CDT Inhaled Oxygen Concentration - - Weight 55.6 kg (122 lb 9.2 oz) 02/14/2013 8:05 A M CDT Height 169.6 cm (5' 6.77 ) 02/14/2013 8:05 AM CD T Body Mass Index 19.33 02/14/2013 8:05 AM CDT documented in this encounter Medications at Time of Discharge Medication Sig Dispensed Refills Start Date End Date acetaminophen (TYLENOL) 325 MG tablet Take 325 mg by mouth every 4 hours as needed. Maximum allowable Acetaminophen amount = 4 Grams (4000 mg) / 24 hours. sulfamethoxazole-trim ethoprim (BACTRIM DS; SEPTRA DS) 800-160 MG tabletIndications:Silvia er replaced by transplant ([facility]) Take 1 Tab by mouth once daily. 30 Tab 4 01/30/2013 07/18/2013 tacrolimus (PROGRAF) 0.5 MG capsuleIndications:Li ruben replaced by transplant ([facility]) Take 1 Cap by mouth 2 times daily. 60 Cap 4 01/30/2013 07/18/2013 valGANciclovir (VALCYTE) 450 MG tabletIndications:Silvia er replaced by transplant ([facility]) Take 1 Tab by mouth daily with breakfast. 30 Tab 4 01/30/2013 02/27/2013 documented as of this encounter Progress Notes * Leyla Vargas RN - 02/14/2013 10:24 AM CDT Patient here with mother for a scheduled visit. Lab samples drawn were: IgG / CBC / CMP / Tacrolimus level. Lab samples obtained from patient's left AC using a 23 Gauge butterfly needle. Band-Aid applied. Dr Philip Chavez spoke with patient and mother briefly. MD will contact them with lab results today. Patient left clinic ambulatory with mother. documented in this encounter Miscellaneous Notes * Miscellaneous Scans - Document, Scanned - 02/16/2013 9:51 AM CDT documented in this encounter Plan of Treatment Not on file documented as of this encounter Procedures Procedure Name Priority Date/Time Associated Diagnosis Comments TACROLIMUS LEVEL ZAHRA 02/14/2013 8:16 AM CDT Hypogammaglobuline justine (HCC) CBC W AUTO DIFFERENTIAL ZAHRA 02/14/2013 8:16 AM CDT Hypogammaglobuline justine (HCC) COMPREHENSIVE METABOLIC PANEL ZAHRA 02/14/2013 8:16 AM CDT Hypogammaglobuline justine (HCC) IGG BLOOD ZAHRA 02/14/2013 8:16 AM CDT Hypogammaglobuline justine (HCC) DIFFERENTIAL MANUAL Routine 02/14/2013 8 :16 AM CDT Hypogammaglobuline justine (HCC) documented in this encounter Results * TACROLIMUS LEVEL (02/14/2013 8:16 AM CDT) Tacrolimus 2.1 2.0 - 15.0 ng/mL 02/14/2013 12:09 PM CDT [facility] Blood specimen (specimen) BLOOD SPECIMEN / Unknown 02/14/2013 8:16 AM CDT 02/14/2013 8:28 AM CDT Narrative [facility] - 02/14/2013 12:09 PM CDT Tacrolimus Information: Nephrology and Cardiology: 3.0-12.0 ng/mL ?GI: 2.0-15.0 ng/mL Jason Fischer MD LAB - THERAPEUTIC DRUG MONITORING ORDERABLES Performing Organization Address [facility] de Phone Number [facility] [address] [place] [address] * IGG BLOOD (02/14/2013 8:16 AM CDT) Pathologist [facility] IgG 807 540 - 1,822 mg/dL 02/14/2013 9:49 AM CDT [facility] Blood specimen (specimen) BLOOD SPECIMEN / Unknown 02/14/2013 8:16 AM CDT 02/14/2013 8:28 AM CDT Jason Fischer MD LAB - CHEMISTRY OR DERABLES Performing Organization Address [facility] Co de Phone Number [facility] [address] [place] [phone] * (ABNORMAL) COMPREHENSIVE METABOLIC PANEL (02/14/2013 8:16 AM CDT) [facility] Glucose 65(L) 70 - 105 mg/dL 02/14/2013 9:33 AM [facility] Sodium 141 136 - 145 mmol/L 02/14/2013 9:33 AM [facility] Potassium 3.7 3.5 - 5.1 mmol/L 02/14/2013 9:33 AM [facility] Chloride 110(H) 98 - 107 mmol/L 02/14/2013 9:33 AM [facility] CO2 22 22 - 29 mmol/L 02/14/2013 9:33 AM [facility] Calcium 9.39 9.08 - 10.48 mg/dL 02/14/2013 9:33 AM [facility] Anion Gap 9 5 - 20 mmol/L 02/14/2013 9:33 AM [facility] BUN 9.6 5.3 - 18.7 mg/dL 02/14/2013 9:33 AM [facility] Creatinine 0.89 0.61 - 1.07 mg/dL 02/14/2013 9:33 AM [facility] eGFR by MDRD >60 >60 ml/min/1.7 3m2 02/14/2013 9:33 AM [facility] eGFR by MDRD >60 >60 ml/min/1.7 3m2 02/14/2013 9:33 AM [facility] Alkaline Phosphatase 143(H) 39 - 139 U/L 02/14/2013 9:33 AM [facility] ALT 37 6 - 46 U/L 02/14/2013 9:33 AM [facility] AST 36 8 - 42 U/L 02/14/2013 9:33 AM [facility] Protein Total 7.0 6.3 - 8.2 gm/dL 02/14/2013 9:33 AM [facility] Albumin 4.3 3.3 - 4.9 gm/dL 02/14/2013 9:33 AM [facility] Bilirubin Total 0.2(L) 0.3 - 1.2 mg/dL 02/14/2013 9:33 AM [facility] Blood specimen (specimen) BLOOD SPECIMEN / Unknown 02/14/2013 8:16 AM CDT 02/14/2013 8:28 AM CDT Jason Fischer MD LAB - CHEMISTRY OR DERABLES Performing Organization Address City/State/[facility] Co de Phone Number [facility] [address] [facility] [place] [address] * (ABNORMAL) CBC W AUTO DIFFERENTIAL (02/14/2013 8:16 AM CDT) WBC 4.0(L) 4.4 - 10.7 x10^9/L 02/14/2013 10:01 AM CDT [facility] RBC 4.85 3.80 - 5.40 x10^12/L 02/14/2013 10:01 AM T [facility] Hemoglobin 15.3 12.0 - 17.6 g/dL 02/14/2013 10:01 AM T [facility] Hematocrit 43.6 35.2 - 51.7 % 02/14/2013 10:01 AM T [facility] MCV 89.9 80.7 - 98.3 fl 02/14/2013 10:01 AM T [facility] MCH 31.5 26.7 - 34.0 pg 02/14/2013 10:01 AM T [facility] MCHC 35.1 30.8 - 35.9 gm/dL 02/14/2013 10:01 AM T [facility] Platelet Count 656(H) 153 - 416 x10^9/L 02/14/2013 10:01 AM T [facility] RDW-CV 14.6 12.1 - 14.9 % 02/14/2013 10:01 AM T [facility] MPV 9.9 9.4 - 12.9 fl 02/14/2013 10:01 AM T [facility] Neutrophils % 53 44 - 73 % 02/14/2013 10:01 AM T [facility] Lymphocytes % 19(L) 20 - 43 % 02/14/2013 10:01 AM T [facility] Monocytes % 25(H) 5 - 13 % 02/14/2013 10:01 AM T [facility] Eosinophils % 1 0 - 6 % 02/14/2013 10:01 AM T [facility] Basophils % 1 0 - 2 % 02/14/2013 10:01 AM T [facility] Immature Granulocytes 2.0(H) 0 - 1 % 02/14/2013 10:01 AM T [facility] Neutrophil Absolute 2.12 2.01 - 7.14 x10^9/L 02/14/2013 10:01 AM [facility] Lymphocytes Absolute 0.74(L) 1.07 - 3.94 x10^9/L 02/14/2013 10:01 AM [facility] Monocytes Absolute 1.00 0.26 - 1.07 x10^9/L 02/14/2013 10:01 AM [facility] Eosinophils Absolute 0.02 0 - 0.47 x10^9/L 02/14/2013 10:01 AM [facility] Basophils Absolute 0.04 0 - 0.08 x10^9/L 02/14/2013 10:01 AM [facility] Immature Granulocytes Absolute 0.08(H) 0.00 - 0.06 x10^9/L 02/14/2013 10:01 AM [facility] Hematology Reflex Status Manual Diff to follow (none) 02/14/2013 10:01 AM [facility] Blood specimen (specimen) BLOOD SPECIMEN / Unknown 02/14/2013 8:16 AM CDT 02/14/2013 8:28 AM T Jason Fischer MD LAB - HEMATOLOGY O RDERABLES Performing Organization Address City/State/[facility] Co de Phone Number [facility] [address] [place] [address] * (ABNORMAL) DIFFERENTIAL MANUAL (02/14/2013 8:16 AM CDT) WBC Auto 4(L) 4.4 - 10.7 X(10)9/L 02/14/2013 10:01 AM T [facility] Neutrophil % Manual 59 44 - 73 % 02/14/2013 10:01 AM [facility] Lymphocytes % Manual 25 20 - 43 % 02/14/2013 10:01 AM [facility] Monocytes % Manual 16(H) 5 - 13 % 02/14/2013 10:01 AM [facility] Cells Counted 100 # cells 02/14/2013 10:01 AM [facility] Platelet Estimation Increased (A) Normal, Adequate platelets 02/14/2013 10:01 AM CDT [facility] WBC Morph Normal 02/14/2013 10:01 AM CDT [facility] Poikilocytosis 1+(A) None 02/14/2013 10:01 AM CDT [facility] [place] Cells Occasiona l(A) None 02/14/2013 10:01 AM CDT [facility] Blood specimen (specimen) BLOOD SPECIMEN / Unknown 02/14/2013 8:16 AM CDT 02/14/2013 8:28 AM CDT Jason Fischer MD LAB - HEMATOLOGY O RDERABLES [facility] [address] [place] [address] documented in this encounter Visit Diagnoses Diagnosis Hypogammaglobulinemia (HCC) Hypogammaglobulinaemia, unspecified History of liver transplant (HCC) Liver replaced by transplant documented in this encounter Care Teams Commercial Credit Analyst Relationship Specialty Start Date End Date Vilma Spangler MD [address] [place] [id number] PCP - General 01/05/11 documented as of this encounter
--- OUTSIDE RECORDS SUMMARY | 2024-10-28 05:56 | XMS_ITS | Encounter Summary ---
Author Organization [facility] Address [address] [place] [address] Care Team Providers Care Railway Station Manager Name Role Phone Vilma Spangler MD Primary Care Provider [phone] Reason for Visit * Reason Onset Date Comments Surgery Scheduling 12/08/2012 Surgery sched uled for 12/19/12 - Laparoscopic, possible open, splenectomy 24488. AM Admit w/5day hospital stay requested Insurance Issue/question 12/08/2012 [employer] - Spoke w/Juanita; [id number] plus 1 day. If more hospital days are necessary, must contact insurance [employer] with clinical information Encounter Details Date Type Department Care Team (Late st Contact Info) Description 12/08/2012 Telephone [facility] Pediatrics - Surgery [address] [place] [address] Gregory Fung MD [address] [place] [address] Surgery Scheduling (Surgery scheduled for 12/19/12 - Laparoscopic, possible open, splenectomy 33591. AM Admit w/5day hospital stay requested); Insurance Issue/question ([employer] - Spoke w/Juanita; transferred to [facility] #[id number] for surgery plus 1 day. If more hospital days are necessary, must contact [employer] with clinical information) Social History Tobacco Use Types Packs/Day Years [...] encounter Miscellaneous Notes * Telephone Encounter - Roselia Heath - 12/08/2012 1:11 PM CST Surgery scheduled for 12/19/12 Laparoscopic, possible open, splenectomy [address] [facility] - Spoke w/Juanita; transferred to [facility]. [facility] #[id number]; valid for surgery plus one day. If more hospital days are necessary, contact insurance company with clinical information. Surgery confirmation #[id number] Roselia 12/08/12 BRAKES INSPECTOR documented in this encounter Plan of Treatment Not on file documented as of this encounter Visit Diagnoses Not on filedocumented in this encounter Care Teams Railway Station Manager Relationship Specialty Start Date End Date Vilma Spangler MD [address] [address] PCP - General 01/05/11 documented as of this encounter
--- OUTSIDE RECORDS SUMMARY | 2024-10-28 05:56 | XMS_ITS | Encounter Summary ---
Author Organization [facility] Address [address] [place] [address] Care Team Providers Care Bearing Grinder Name Role Phone Vilma Spangler MD Primary Care Provider [phone] Encounter Details Date Type Department Care Team (Late st Contact Info) Description 03/02/2013 Orders Only [facility] - Transplant Services [address] [place] [address] Batool Mcdermott, RN Liver replaced by transplant (HCC) Social History Tobacco Use Types Packs/Day Years [...] transplant documented in this encounter Care Teams Bearing Grinder Relationship Specialty Start Date End Date Vilma Spangler MD [address] [place] [id number] PCP - General 01/05/11 documented as of this encounter
--- OUTSIDE RECORDS SUMMARY | 2024-10-28 05:56 | XMS_ITS | Encounter Summary ---
Author Organization [facility] Address [address] [place] [address] Care Team Providers Care Entry Manager Name Role Phone Vilma Spangler MD Primary Care Provider Encounter Details Date Type Department Care Team (Latest Contact Info) Description 04/03/2013 7:46 AM CDT - 04/03/2013 11:59 PM CDT Hospital Encounter The [facility] at [address] [address] Shivani Fernandez MD [address] [place] [phone] Discharge Disposition: Home or Self Care Social [...] Sign Reading Time Taken Comments Blood Pressure 110/80 04/03/2013 12:24 PM CDT Pulse 72 04/03/2013 12:24 PM CDT Temperature 37 ??C (98.6 ??F) 04/03/2013 12:24 PM CDT Respiratory Rate 20 04/03/2013 12:24 PM CDT Oxygen Saturation 99% 04/03/2013 7:57 AM CDT Inhaled Oxygen Concentration - - Weight 54.5 kg (120 lb 2.4 oz) 04/03/2013 7:57 A M CDT Height 169.8 cm (5' 6.85 ) 04/03/2013 7:57 AM CD T Body Mass Index 18.9 04/03/2013 7:57 AM CDT documented in this encounter Discharge Instructions * Discharge Instructions* Document, Scanned - 04/05/2013 8:15 AM CDT documented in this encounter Medications at Time of Discharge Medication Sig Dispensed Refills Start Date End Date acetaminophen (TYLENOL) 325 MG tablet Take 325 mg by mouth every 4 hours as needed. Maximum allowable Acetaminophen amount = 4 Grams (4000 mg) / 24 hours. sulfamethoxazole-trim ethoprim (BACTRIM DS; SEPTRA DS) 800-160 MG tabletIndications:Silvia er replaced by transplant ([facility]) Take 1 Tab by mouth once daily. 30 Tab 4 01/30/2013 07/18/2013 tacrolimus (PROGRAF) 0.5 MG capsuleIndications:Li ruben replaced by transplant ([facility]) Take 1 Cap by mouth 2 times daily. 60 Cap 4 01/30/2013 07/18/2013 documented as of this encounter Progress Notes * Ileana Goode APRN-CNP - 04/03/2013 11:01 AM CDT Pt arrived in clinic, triaged, and assessed by RN. Here for scheduled visit and possible IVIG. No complaints per patient to this RN. Left AC 22 gauge Peripheral IV started without difficulty. Positive blood return noted and labs obtained. NS flushes easily and dressing applied. Examined per Dr. Chavez. IgG level 466. Dr. Chavez notified and ordered IVIG. Patient premedicated with PO Tylenol and [place] dryl. Report given to Kameron Castillo RN to take over the remainder of the patient's care. * Ileana Castillo RN - 04/03/2013 9:06 AM CDT Report received from Sai Goode RN to resume care for IVIG infusion. Patient's labs resulted as follows: WBC- 7.2, Hgb- 15.9, Plt- 399, IGG- 466. Left AC PIV NS flushed well and had positive blood return. Flushed with D5 prior to infusion. Titrated as ordered. Vital signs stable throughout infusion. Flushed with D5. PIV discontinued by Sixto Fox RN and patient will return to clinic in 4 weeks for visit and labs. Discharged in care of mother. * Philip Chavez MD - 04/03/2013 8:40 AM CDT Hematology/Oncology Progress Note Name: Beka Nichols Date: 02/27/2013 Time of Note: 8:40 AM PCP: Vilma Spangler Diagnosis: Autoimmune Thrombocytopenia/Autoimmune [...] Status good Interval History Beka has been well recently. No bleeding. No petechia No fevers. Activity and energy level at baseline. Appetite good. Some numbness around abdominal incision. Pain in LU[place] when wrestling brother recently. No other pain. Currently working at [employer] Past Medical History: unchanged Family Medical History: unchanged Physical Exam Constitutional: BP 105/60 Pulse 75 Temp 97.7 ??F Ht 1.698 m (5' 6.85 ) Wt 54.5 kg (120 lb 2.4 oz) BMI 18.90 kg/m2 SpO2 99% Body surface area is 1.60 meters squared. General Appearance: Alert, NAD Head: No nasal congestion or discharge Skin: [...] Recent Results (from the past 72 hour(s)) CBC W AUTO DIFFERENTIAL Collection Time 04/03/13 8:08 AM Component Value Range WBC 7.2 4.4-10.7 x10^9/L RBC 5.03 3.80-5.40 x10^12/L Hgb 15.9 12.0-17.6 g/dL HCT 44.1 35.2-51.7 % MCV 87.7 80.7-98.3 fl MCH 31.6 26.7-34.0 pg MCHC 36.1 (*) 30.8-35.9 gm/dL Plt Ct 399 153-416 x10^9/L RDW-CV 14.4 12.1-14.9 % MPV 9.8 9.4-12.9 fl Neutro 53 44-73 % Lymph 24 20-43 % [place] 20 (*) 5-13 % Eos 2 0-6 % Baso 0 0-2 % Immature Grans 0.3 0-1 % Neutro Abs 3.85 2.01-7.14 x10^9/L Lymph Abs 1.75 1.07-3.94 x10^9/L [place] Abs 1.45 (*) 0.26-1.07 x10^9/L Eosin Abs 0.15 0-0.47 x10^9/L Baso Abs 0.02 0-0.08 x10^9/L Immature Grans Abs 0.02 0.00-0.06 x10^9/L IGG BLOOD Collection Time 04/03/13 8:08 AM Component Value Range IgG 466 (*) 540-1822 mg/dL Assessment Beka Nichols is a 18 y.o. male with history of liver transplant, autoimmunne thrombocytopenia/neutropenia, doing well IgG low today. Platelet count normal. Remainder of CBC normal. History-Beka is a 18 yo [...] injury. Beka recovered nicely. Platelets increased nicely. Beka has been clinically stable since. Last IgG normal but IgA and IgM very low. No recent infectious complications. Plan 1. CBC, Immunoglobulin panel, CMP, Mg, Phos 2. IVIG 0.5 g/kg today. Premed with Tylenol/Benadryl 3. RTC in 1 month for CBC, EBV PCR, IgG and possible IVIG documented in this encounter Miscellaneous Notes * Miscellaneous Scans - Document, Scanned - 04/05/2013 3:09 PM CDT documented in this encounter Plan of Treatment Not on file documented as of this encounter Procedures Procedure Name Priority Date/Time Associated Diagnosis Comments CBC W AUTO DIFFERENTIAL STAT 04/03/2013 8:08 AM CDT Hypogammaglobulinemia (HCC) Neutropenia associated with autoimmune disease (HCC) ITP (idiopathic thrombocytopenic purpura) IGG BLOOD STAT 04/03/2013 8:08 AM CDT Hypogammaglobulinemia (HCC) Neutropenia associated with autoimmune disease (HCC) ITP (idiopathic thrombocytopenic purpura) documented in this encounter Results * (ABNORMAL) IGG BLOOD (04/03/2013 8:08 AM CDT) IgG 466(L) 540 - 1,822 mg/dL 04/03/2013 8:42 AM CDT [facility] Blood specimen (specimen) BLOOD SPECIMEN / Unknown Venipuncture / Unknown 04/03/2013 8:08 AM CDT 04/03/2013 8:17 AM CDT Shivani Fernandez MD LAB - CHEMISTRY MAC[facility]NDEZ [facility] Organization Address City/State/[facility] Co de Phone Number [facility] [place] [address] * (ABNORMAL) CBC W AUTO DIFFERENTIAL (04/03/2013 8:08 AM CDT) WBC 7.2 4.4 - 10.7 x10^9/L 04/03/2013 8:24 AM CDT [facility] RBC 5.03 3.80 - 5.40 x10^12/L 04/03/2013 8:24 AM CDT [facility] Hemoglobin 15.9 12.0 - 17.6 g/dL 04/03/2013 8:24 AM CDT [facility] Hematocrit 44.1 35.2 - 51.7 % 04/03/2013 8:24 AM CDT [facility] MCV 87.7 80.7 - 98.3 fl 04/03/2013 8:24 AM CDT [facility] MCH 31.6 26.7 - 34.0 pg 04/03/2013 8:24 AM CDT [facility] MCHC 36.1(H) 30.8 - 35.9 gm/dL 04/03/2013 8:24 AM T [facility] Platelet Count 399 153 - 416 x10^9/L 04/03/2013 8:24 AM T [facility] RDW-CV 14.4 12.1 - 14.9 % 04/03/2013 8:24 AM T [facility] MPV 9.8 9.4 - 12.9 fl 04/03/2013 8:24 AM T [facility] Neutrophils % 53 44 - 73 % 04/03/2013 8:24 AM T [facility] Lymphocytes % 24 20 - 43 % 04/03/2013 8:24 AM T [facility] Monocytes % 20(H) 5 - 13 % 04/03/2013 8:24 AM T [facility] Eosinophils % 2 0 - 6 % 04/03/2013 8:24 AM T [facility] Basophils % 0 0 - 2 % 04/03/2013 8:24 AM T [facility] Immature Granulocytes 0.3 0 - 1 % 04/03/2013 8:24 AM T [facility] Neutrophil Absolute 3.85 2.01 - 7.14 x10^9/L 04/03/2013 8:24 AM T [facility] Lymphocytes Absolute 1.75 1.07 - 3.94 x10^9/L 04/03/2013 8:24 AM T [facility] Monocytes Absolute 1.45(H) 0.26 - 1.07 x10^9/L 04/03/2013 8:24 AM T [facility] Eosinophils Absolute 0.15 0 - 0.47 x10^9/L 04/03/2013 8:24 AM T [facility] Basophils Absolute 0.02 0 - 0.08 x10^9/L 04/03/2013 8:24 AM T [facility] Immature Granulocytes Absolute 0.02 0.00 - 0.06 x10^9/L 04/03/2013 8:24 AM T [facility] Blood specimen (specimen) BLOOD SPECIMEN / Unknown Venipuncture / Unknown 04/03/2013 8:08 AM CDT 04/03/2013 8:17 AM CDT Shivani Fernandez MD LAB - HEMATOLOGY ORD ERABLES [facility] [address] [place] [address] documented in this encounter Visit Diagnoses Diagnosis Hypogammaglobulinemia (HCC) Hypogammaglobulinaemia, unspecified Neutropenia associated with autoimmune disease (HCC) Other neutropenia ITP (idiopathic thrombocytopenic purpura) (HCC) Immune thrombocytopenic purpura documented in this encounter Administered Medications Inactive Administered Medications - up to 3 most recent administrations Medication Order MAR Action Action Date Dose Rate Site acetaminophen (TYLENOL) tablet 325 mg 325 mg, Oral, ONCE, 1 dose, On Wed04/03/13 at 0915, Administer one (1) hour prior to IVIG administration. $ Given 04/03/2013 9:00 AM CDT 325 mg diphenhydrAMINE (BENADRYL) tablet 50 mg 50 mg, Oral, ONCE, 1 dose, On Wed04/03/13 at 0915, Administer one (1) hour prior to IVIG administration. $ Given 04/03/2013 9:00 AM CDT 50 mg immune globulin (human) (PRIVIGEN) 10 % infusion 27.5 g 27.5 g (0.5 g/kg ? 54.5 kg), Intravenous, CONTINUOUS, Starting on Wed04/03/13 at 1200, Until Wed04/03/13 at 1359, Intravenous, CONTINUOUS for 2 hours, Initiate infusion [...] half the previous rate. $ New Bag/Syringe 04/03/2013 10:02 AM CDT 27.5 g 33 mL/hr documented in this encounter Care Teams Entry Manager Relationship Specialty Start Date End Date Vilma Spangler MD [address] [place] [address] PCP - General 01/05/11 documented as of this encounter
--- OUTSIDE RECORDS SUMMARY | 2024-10-28 05:56 | XMS_ITS | Encounter Summary ---
Author Organization [facility] Address [address] [place] [id number] Care Team Providers Care Setter [employer] Name Role Phone Vilma Spangler MD Primary Care Provider [phone] Reason for Visit * Reason Comments Rash Pt with h/o ITP. not ed petechie today. Noted on bilateral arms, legs, and in mouth. PRESENTS: lungs clear. petechie noted in mouth on inner cheek, bilateral arms. Fatigue times 2 weeks. GENERALIZED BODY ACHES states joints ach y times 2 days. * Auth/Cert - Closed Specialty Diagnoses / Procedures Referred By Sascha t Referred To Contact Pediatrics Diagnoses Thrombocytopenia (HCC) [id number] Cg 4 N Hem/Onc [address] [place] [address] Referral ID Status Reason Start Date Expiration Date Visits Re quested Visits Authorized [id number] Closed 11/17/2012 05/16/2013 1 Encounter Details Date Type Department Care Team (Late st Contact Info) Description 11/16/2012 7:17 PM REFINERY OPERATOR VISBREAKING - 11/17/2012 6:40 PM [facility] Hospital Encounter CG 4 N HEM/ONC [address] [place] [address] Shanique Sousa MD No Updated information Jason Fischer MD [address] [place] [id number] Emergency Medicine Discharge Disposition: Home or Self Care [...] Sign Reading Time Taken Comments Blood Pressure 118/68 11/17/2012 4:55 PM REFINERY OPERATOR VISBREAKING Pulse 110 11/17/2012 4:55 PM REFINERY OPERATOR VISBREAKING Temperature 37.1 ??C (98.8 ??F) 11/17/2012 4:55 PM CS T Respiratory Rate 18 11/17/2012 4:55 PM REFINERY OPERATOR VISBREAKING Oxygen Saturation 99% 11/17/2012 4:55 PM REFINERY OPERATOR VISBREAKING Inhaled Oxygen Concentration - - Weight 57.6 kg (126 lb 15.8 oz) 11/16/2012 7:21 PM REFINERY OPERATOR VISBREAKING Height 172.7 cm (5' 8 ) 11/16/2012 10:2 8 PM REFINERY OPERATOR VISBREAKING Body Mass Index 19.31 11/16/2012 7:21 PM REFINERY OPERATOR VISBREAKING documented in this encounter Discharge Summaries * Cindi Malloy MD - 11/19/2012 12:55 PM CST Images from the original note were not included. Attending Physician: Jason Fischer MD Office 11/19/2012 12:55 PM Pediatric Discharge Summary Pt. Name: Beka Nichols : 1995 Attending Physician : Jason Fischer MD Admission Date: 11/16/2012 Discharge Date: 11/17/2012 Hospital Course (by problem): Active Hospital Problems Diagnoses Date Noted ??? ITP (idiopathic thrombocytopenic purpura) 11/16/2012 17yo with h/o chronic ITP, viral hepatitis s/p liver transplant, hypogammaglobulinemia, now with exacerbation of petechial rash and fatigue. Stable with platelet count of three. Was admitted for IVIGtherapy. No acute bleeding on admission. Pt received 60 g of IVIG without complications. Plt count went up to 29K after the IVIG infusion. We continued home Tacrolimus, Augmentin for his active sinusitis. Discharged home on 11/17. Follow-up appt for blood counts and a visit have been made for Wednesday11/22/12 in morning at [facility] Resolved Hospital Problems Diagnoses Date Noted Date Resolved Discharge Diagnosis(es): ITP (idiopathic thrombocytopenic purpura) Condition on Discharge: Improved Consultations: none Diagnostic studies: none Procedures: none Relevant Labs: CBC Discharge Physical Exam (relevant findings include): augmentin for sinusitis PENDING RESULTS: none Discharge Medications: Discharge Medication List As of 11/17/2012 6:08 PM CONTINUE taking these medications Instructions Authorizing Provider acetaminophen 325 MG tablet Commonly known as: TYLENOL Take 325 mg by mouth every 4 hours as needed. Maximum allowable Acetaminophen amount = 4 Grams (4000 mg) / 24 hours. amoxicillin-clavulanate 875-125 MG tablet Commonly known as: AUGMENTIN Take 1 Tab by mouth 2 times daily with morning and evening meal for 10 days. Philip Chavez tacrolimus 1 MG capsule Commonly known as: PROGRAF Take 1 Cap by mouth 2 times daily. Houston Chao Discharge Procedure Orders CALL PHYSICIAN Discharge Instructions: Heme/Onc Do NOT give acetaminophen (Tylenol) or ibuprofen (Advil, Motrin) to treat or prevent fever without instructions from the Hematology-Oncology team. Please contact the Hematology-Oncology team immediately for any of the following symptoms: Fever (any single temperature of 101.0 degrees F., or higher, or a temperature of 100.4 F., or higher that lasts for an hour or more). Shaking chills Bleeding or unusual bruising Breathing problems Severe or unexplained pain Unusual drowsiness or weakness To contact the Hematology Team with any questions or concerns: During the day (7:30 am to 4:00 pm, Wednesday-Wednesday): Call the [facility] at [phone]. Nights, weekends or holidays: Call the [facility] wastewater treatment plant operator at [phone] (or ) and ask for the hematology attending station manager. REGULAR DIET AT HOME FOLLOW-UP APPOINTMENT HAS BEEN MADE WITH Follow-up appt for blood counts and a visit have been made for Wednesday11/22/12 in morning at [facility] Divine Alicia MD CC: Vilma Spangler [address] / [facility] [address] Seen and examined patient personally. I have reviewed the history and medications and agree with the above note except where noted. See Hem-Onc Attending Note for further details. Cindi Malloy MD NERY OPERATOR VISBREAKING documented in this encounter Discharge Instructions * Discharge Instructions* ReMinnie RN - 11/17/2012 6:08 PM REFINERY OPERATOR VISBREAKING Follow-up appointment for blood counts and a visit have been made for Wednesday11/22/12 in [facility]. Continue the Antibiotics for your acute sinusitis. Continue daily tacrolimus. Discharge Instructions for: Beka Nichols Discharge Procedure Orders CALL PHYSICIAN Discharge Instructions: Heme/Onc Do NOT give acetaminophen (Tylenol) or ibuprofen (Advil, Motrin) to treat or prevent fever without instructions from the Hematology-Oncology team. Please contact the Hematology-Oncology team immediately for any of the following symptoms: Fever (any single temperature of 101.0 degrees F., or higher, or a temperature of 100.4 F., or higher that lasts for an hour or more). Shaking chills Bleeding or unusual bruising Breathing problems Severe or unexplained pain Unusual drowsiness or weakness To contact the Hematology Team with any questions or concerns: During the day (7:30 am to 4:00 pm, Wednesday-Wednesday): Call the [facility] at [phone]. Nights, weekends or holidays: Call the [facility] wastewater treatment plant operator at [phone] (or ) and ask for the hematology attending station manager. REGULAR DIET AT HOME FOLLOW-UP APPOINTMENT HAS BEEN MADE WITH Follow-up appt for blood counts and a visit have been made for Wednesday11/22/12 in [facility] at [facility] The following belonging have been returned to you Clothing Clothing: Yes With Patient: Shirt;Pants;Jacket/Coat;Footwear Secured: Shirt;Pants;Jacket/Coat;Footwear Jewelry Jewelry: None Electronics Electronic Items: Yes With Patient: Cell Phone;Electronic Device Flexboard Operator Secured: Cell Phone;Electronic Device Flexboard Operator Dentures Dentures/Retainers: Yes Retainer Upper: Home Retainer Lower: Home Vision Visual Aids: Yes Glasses: Home Hearing Aids Hearing Aids: None Equipment/Assistive Devices Equipment with Patient: None Home Medications Home Medications: None Miscellaneous Belongings Miscellaneous Items: None Monetary Monetary Items: None If your child has any worsening of his or her condition, please call your primary care doctor (or their exchange if after hours) or return to the ED if your primary care doctor cannot be reached. 11/17/2012 NERY OPERATOR VISBREAKING * Discharge Instructions* Document, Scanned - 11/21/2012 9:15 AM REFINERY OPERATOR VISBREAKING NERY OPERATOR VISBREAKING documented in this encounter Medications at Time of Discharge Medication Sig Dispensed Refills Start Date End Date acetaminophen (TYLENOL) 325 MG tablet Take 325 mg by mouth every 4 hours as needed. Maximum allowable Acetaminophen amount = 4 Grams (4000 mg) / 24 hours. amoxicillin-clavulana te (AUGMENTIN) 875-125 MG tablet Take 1 Tab by mouth 2 times daily with morning and evening meal for 10 days. 20 Tab 0 11/11/2012 11/21/2012 tacrolimus (PROGRAF) 1 MG capsule Take 1 Cap by mouth 2 times daily. 60 Cap 6 03/14/2012 12/28/2012 documented as of this encounter Progress Notes * Minnie Rogers RN - 11/17/2012 6:45 PM CST [id number] PIV dc'd leah well. Discharge instructions given to Pt and Mom with printed copy given. Both show good verbal understanding. Escorted to exit ambulatory with Mom in NAD. NERY OPERATOR VISBREAKING * Nancy Mota MD - 11/17/2012 6:08 PM CST Received sign-out from day team regarding discharge criteria for Beka. He will be discharged as his platelet count is greater than 10. Component Name 11/17/12 1701 11/17/12 0748 11/16/122017 PLTCOUNT 29* 8* 3* 6:10 PM Nancy Mota PGY-1 NERY OPERATOR VISBREAKING * Divine Alicia MD - 11/17/2012 5:07 PM CST Pediatric Resident Daily Progress Note Beka Contreras Simone 11/17/2012 5:07 PM Hospital Day: 1 Clinical Course No issues. Tolerated IVIG well. Objective Vitals BP: 118/68 mmHg (11/17/121654), Temp: 98.8 ??F (11/17/121654), Pulse: 110 (11/17/121654),Resp: 18 (11/17/121654), SpO2: 99 % (11/17/121654), Height: 172.7 cm (5' 8 ) (11/16/128), Weight: 57.6 kg (126 lb 15.8 oz) (11/16/121920) Temp (24hrs), Av ??F, Min:96.8 ??F, Max:98.8 ??F 11/16 1499 - 11/17 1459 In: 603.4 [I.V.:603.4] Out: 300 [Urine:300] Exam: General: lying in bed in NAD Cardiovascular: regular rate and rhythm, normal S1 and S2, no murmurs Chest: breath sounds symmetrical without rales or wheezes and good air movement Abdomen: soft, non-tender, non-distended and no hepatosplenomegaly or masses Skin: pinpoint petechiae on bilateral upper and lower extremities Neuro: alert, oriented, normal speech, no focal findings or movement disorder noted Lab/Other Information Recent Results (from the past 24 hour(s)) DIFFERENTIAL MANUAL Collection Time 11/16/12 8:18 PM Component Value Range WBC Auto 5.1 4.4-10.7 X(10)9/L Neutro Manual 40 (*) 44-73 % Lymph Manual 35 20-43 % Assumption Manual 17 (*) 5-13 % Eos Manual 4 0-6 % Atyp Lymph Manual 1 (*) <=0 % Band Manual 3 0-11 % Cells Counted 100 Plt Est Markedly increased RBC Morph Normal WBC Morph Normal CBC W AUTO DIFFERENTIAL Collection Time 11/16/12 8:18 PM Component Value Range WBC 5.1 4.4-10.7 x10^9/L RBC 5.12 3.80-5.40 x10^12/L Hgb 16.0 12.0-17.6 g/dL HCT 45.4 35.2-51.7 % MCV 88.7 80.7-98.3 fl MCH 31.3 26.7-34.0 pg MCHC 35.2 30.8-35.9 gm/dL Plt Ct 3 (*) 153-416 x10^9/L COMPREHENSIVE METABOLIC PANEL Collection Time 11/16/12 8:18 PM Component Value Range Glucose 95 70-105 mg/dL Sodium 142 136-145 mmol/L Potassium 3.8 3.5-5.1 mmol/L Chloride 107 98-107 mmol/L CO2 25 22-29 mmol/L Calcium 9.78 9.08-10.48 mg/dL Anion Gap 10 5-20 mmol/L BUN 10.1 5.3-18.7 mg/dL Creatinine 0.91 0.61-1.07 mg/dL eGFR by MDRD >60 >60 ml/min/1.73m2 eGFR by MDRD AFR AMER >60 >60 ml/min/1.73m2 Alk Phos 144 (*) 39-139 U/L ALT/SGPT 52 (*) 6-46 U/L AST/SGOT 34 8-42 U/L Protein Total 7.1 6.3-8.2 gm/dL Albumin 4.1 3.3-4.9 gm/dL Bili Total 0.6 0.3-1.2 mg/dL DIFFERENTIAL MANUAL Collection Time 11/17/12 7:48 AM Component Value Range WBC Auto 3.6 (*) 4.4-10.7 X(10)9/L Neutro Manual 38 (*) 44-73 % Lymph Manual 17 (*) 20-43 % Assumption Manual 22 (*) 5-13 % Eos Manual 3 0-6 % Atyp Lymph Manual 11 (*) <=0 % Band Manual 9 0-11 % Cells Counted 100 Plt Est Decreased WBC Morph Normal Anisocytosis Slight Poikilocytosis Slight Stomatocytes Slight CBC W AUTO DIFFERENTIAL Collection Time 11/17/12 7:48 AM Component Value Range WBC 3.6 (*) 4.4-10.7 x10^9/L RBC 4.53 3.80-5.40 x10^12/L Hgb 14.6 12.0-17.6 g/dL HCT 40.6 35.2-51.7 % MCV 89.6 80.7-98.3 fl MCH 32.2 26.7-34.0 pg MCHC 36.0 (*) 30.8-35.9 gm/dL RDW-CV 12.9 12.1-14.9 % Neutro 50 44-73 % Lymph 24 20-43 % Assumption 21 (*) 5-13 % Eos 4 0-6 % Baso 0 0-2 % Immature Grans 0.6 0-1 % Neutro Abs 1.81 (*) 2.01-7.14 x10^9/L Lymph Abs 0.86 (*) 1.07-3.94 x10^9/L Assumption Abs 0.74 0.26-1.07 x10^9/L Eosin Abs 0.16 0-0.47 x10^9/L Baso Abs 0.01 0-0.08 x10^9/L Immature Grans Abs 0.02 0.00-0.06 x10^9/L Hemo Reflex Status Manual Diff to follow (none) Plt Ct 8 (*) 153-416 x10^9/L Active Hospital Problems Diagnoses Date Noted ??? ITP (idiopathic thrombocytopenic purpura) 11/16/2012 17yo with h/o chronic ITP, viral hepatitis s/p liver transplant, hypogammaglobulinemia, now with exacerbation of petechial rash and fatigue. Currently stable with platelet count of three. To be admitted for IVIG therapy. No acute bleeding on admission. Plan: Received 60 g of IVIG this AM without complications - pre-medicate with tylenol and benadryl - Repeat CBC at 5 PM. And if PLT>10 K, pt can be discharged home today - continue home tacrolimus - continue course of augmentin for sinusitis - regular diet - tylenol PRN for pain Follow-up appt for blood counts and a visit have been made for Wednesday11/22/12 in morning at [facility] Divine Alicia MD NERY OPERATOR VISBREAKING * Hans Welsh RN - 11/17/2012 1:27 PM CST Follow-up appt for blood counts and a visit have been made for Wednesday11/22/12 in morning at [facility]. NERY OPERATOR VISBREAKING * Cindi Malloy MD - 11/17/2012 7:26 AM CST Pediatric Medical Student Daily Progress Note 11/17/2012 7:26 AM Hospital Day: 1 Clinical Course Beka Nichols is a 17 y.o. Male with pmh of non A/B hepatitis, status post liver transplant at age 4, Hypogammaglobulinemia and ITP. He presented with worsening petechia for the past three days on hisupper and lower extremities and one day of oral petechia. Patient was seen five days ago for possible sinusitis and platelets were recorded to be 73, today they are 3. Patient was given one infusion of IVIG and had no acute events overnight. Objective Temp (24hrs), Av.8 ??F, Min:96.8 ??F, Max:98.4 ??F Weight: 8%, Height: 28%, BMI: 8% Patient Vitals for the past 24 hrs: BP Temp Pulse Resp SpO2 Height Weight 11/17/12 0600 111/67 mmHg 96.8 ??F 80 18 98 % - - 11/17/12 0550 104/50 mmHg - 78 20 97 % - - 11/17/12 0520 106/62 mmHg - 78 18 97 % - - 11/17/12 0445 92/57 mmHg - 78 18 98 % - - 11/17/12 0405 111/73 mmHg 97.4 ??F 76 20 98 % - - 11/17/12 0330 109/64 mmHg - 76 18 98 % - - 11/17/12 0300 109/67 mmHg - 74 18 97 % - - 11/17/12 0225 116/76 mmHg - 78 18 97 % - - 11/17/12 0210 116/70 mmHg - 88 18 97 % - - 11/17/12 0155 114/63 mmHg - 76 16 97 % - - 11/17/12 0140 112/63 mmHg - 72 16 97 % - - 11/17/12 0120 114/60 mmHg 97.6 ??F 82 18 98 % - - 11/16/12 2330 124/79 mmHg 98 ??F 78 20 - - - 11/16/12 2240 - 97.7 ??F 80 20 - - - 11/16/12 2228 - - - - - 1.727 m (5' 8 ) - 11/16/122056 - 98.4 ??F 72 20 - - - 11/16/12 1921 128/80 mmHg 98.4 ??F 76 20 - - 57.6 kg (126 lb 15.8 oz) Intake/Output Summary (Last 24 hours) at 11/17/12 0731 Last data filed at 11/17/12 0603 Gross per 24 hour Intake 603.4 ml Output 300 ml Net 303.4 ml Lab/Other Information Component Name 11/17/12 0748 11/17/12 0748 WBC 3.6* -- RBC 4.53 -- HGB 14.6 -- HCT 40.6 -- MCV 89.6 -- MCH 32.2 -- MCHC 36.0* -- RDW -- -- PLTCOUNT 8* -- BANDMANPCT -- 9 SEGMANPCT -- -- LYMPHMANPCT -- 17* MONOMANPCT -- 22* EOSMANPCT -- 3 ATYPLYMPHMAN -- 11* METAMANPCT -- -- MYELOMANPCT -- -- PROMYELOMAN -- -- BLASTMANPCT -- -- IMMATUREPCT -- -- PLASMAMANPCT -- -- OTHERMANPCT -- -- NRBC -- -- WBCCORRECT -- -- RBCMORPH -- -- WBCMORPH -- Normal Component Name 11/16/12201711/11/12 1019 10/27/12 0810 WBC 5.1 7.9 11.6* HGB 16.0 17.3 15.7 HCT 45.4 48.1 43.5 PLTCOUNT 3* 73* 87* Component Name 11/16/122017 SODIUM 142 POTASSIUM 3.8 CHLORIDE 107 CO2 25 BUN 10.1 CREATININE 0.91 GLUCOSE 95 CALCIUM 9.78 ALBUMIN 4.1 ALKPHOS 144* ALT 52* AST 34 TBIL 0.6 TPROT 7.1 EGFR >60 Exam: BP 111/67 Pulse 80 Temp 96.8 ??F Resp 18 Wt 57.6 kg (126 lb 15.8 oz) BMI 19.31 kg/m2 General: in no acute distress, thin frame but well nourished HEENT: NCAT, PERRLA, EOMI CV: RRR, no murmurs, normal S1 and S2 Resp: clear to auscultation bilaterally, no wheezing or crackles present GI: soft, non-tender, non-distended. Large midline scar from liver transplant, no HSM, normal B/S present in all quadrants Extremities: petechiae on lower and upper extremities Neuro: A and Ox3, no focal deficits Patient Active Hospital Problem List: ITP (idiopathic thrombocytopenic purpura) (11/16/2012) Assessment: Beka is a 17 y.o. w h/o chronic ITP, liver transplant, hypogammaglobulinemia and non A/B hepatitis who has multiple petechia over extremities and in oral mucosa. Patient also has a platelet count of 3 but currently stable. Plan: IVIG that is pretreated with Tylenol and Benadryl FEN/GI: - net: 303.4 ml Regular diet as tolerated Heme: -finished one course of IVIG today -daily CBC -will recheck CBC in the evening and reassess if IVIG is necessary Hepatic: -Tacrolimus capsule 1mg BID -monitor alk phos and ALT as it is slightly elevated Resp: -continue Augmentin tab 875 mg Mikki Morton Medical Student Hem-Onc Attending Note I have reviewed this note for educational purposes. Please see Hem-Onc Attending note for details of my assessment, physical exam and medical decision making. Cindi Malloy MD NERY OPERATOR VISBREAKING * Leida Martin MD - 11/16/2012 11:17 PM CST PGY-3 PEDRO LUIS Night Float Note. Briefly Beka is a 17 year old male with chronic ITP, hypogammaglobulinemia, h/o viral hepatitis s/p liver transplant admitted for IVIG infusion. H/o fatigue, seen recently in [facility]. Notice increasing petechiae over last few days. Deniesany fever, bleeding from gums, nose bleeds, hematuria, bloody stool, URI symptoms. Otherwise tolerating PO well at home. Platelets 6 (was 73 five days ago). Patient seen and examined. In NAD. Examination significant for multiple petechiae on extremities and mucosal involvement. Will admit for IVIG infusion 60 grams and repeat CBC in am. Usually dose Tylenol and Benadryl priorto infusion (does not like prednisone b/c makes him abraham per mom). NERY OPERATOR VISBREAKING documented in this encounter H&P Notes * Nancy Mota MD - 11/16/2012 10:36 PM CST Attending Physician: Jason Fischer MD Office 11/16/2012 10:37 PM Pediatric Resident Admission Note Admit Date: 11/16/2012 7:17 PM Chief Complaint Thrombocytopenia Petechiae History of Present Illness Beka is a 17 yo male with h/o non-A/non-B hepatitis s/p liver transplant at 4 yrs old, hypogammaglobulinemia, and chronic ITP, presenting with three days of progressively worsening petichiae on hisupper and lower extremities, and one day of acute onset of oral petechiae. Also with fatigue for two weeks. Denies active bleeding from gums. Denies epistaxis. No hematuria or hematochezia. No new onset bruising or hematoma. Denies fever, vomiting, diarrhea. Appetite has remained adequate with unchanged PO intake. Denies shortness of breath, chest pain. Last nosebleed two weeks ago. Currently being treated for sinusitis with a ten day course of augmentin, now day 5. Pending splenectomy on 12/19/12. Receives IVIG every 4-6 weeks. Past Medical History No history on file. Past Medical History Diagnosis Date ??? ITP (idiopathic thrombocytopenic purpura) ??? Platelet disorder ??? Hx of liver transplant 1998 ??? 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 ??? Unspecified disorder of liver Past Surgical History Procedure Date ??? Liver transplant 1998 ??? Pr dental surgery procedure 2011 Removal of [place] teeth in dental office under sedation Immunizations Immunization status: up to date and documented. Allergies No Known Allergies Family History Family History Problem Relation Age of Onset [...] Hx ??? Marfan Syndrome Neg Hx ??? AL Neg Hx ??? Osteoporosis Neg Hx ??? Scoliosis Neg Hx ??? Severe Sprains Neg Hx ??? Sickle Cell Anemia Neg Hx ? ? Sudd. <30 Neg Hx Social History History Social History Narrative ??? No narrative on file Review of Systems Constitutional: Positive for decreased activity Eyes: Negative for redness bilaterally and discharge bilaterally ENT: Ears: Negative for ear pain bilaterally and discharge bilaterally Nose: Negative for congestion and epistaxis bilaterally Mouth/Throat: Positive for oral petechiae, negative for gum bleeding Respiratory: Negative for wheezing, retractions and acute cough Cardiovascular: Negative for palpitations, tachycardia and bradycardia Gastrointestinal: Negative for poor appetite, nausea, vomiting, hemetemesis, abdominal pain, jaundice Genitourinary: male Negative for dysuria, frequency, hesitancy Skin: Positive for petechial rash Hematologic/Lymphatic: Positive for petechia Musculoskeletal: Negative for pain, swelling, decreased ROM, joint swelling Neurological: Negative for headaches, dizziness, syncope Behavioral/Psych: Positive for fatigue, Negative for depressed mood Endocrine: Negative for thyroid swelling, cold intolerance, heat intolerance Allergy/Immunology: Negative for seasonal allergies, hay fever Exam Vitals BP: 111/67 mmHg (11/17/12 0600) Temp: 96.8 ??F (11/17/12 06) Pulse: 80 (11/17/12 06) Resp: 18 (11/17/12 06) SpO2: 98 % (11/17/12 0600) Height: 172.7 cm (5' 8 ) (11/16/122227) Weight: 57.6 kg (126 lb 15.8 oz) (11/16/121920) General: well appearing Head: NC/AT Eyes: sclera and conjunctiva clear, EOMI and PERRL, lids normal Ears: Canals - normal, TM's - normal bilaterally, Pinna - normally formed and positioned bilaterally Nose: clear Oropharynx: + petechiae on oral mucosa, tongue, inner lip, moist mucous membranes, no pharyngeal erythema, no tonsilar enlargement Neck: supple, non-tender, with full ROM, and no lymphadenopathy Cardiovascular: regular rate and rhythm, normal S1 and S2, no murmurs Chest: breath sounds symmetrical without rales or wheezes and good air movement Abdomen: soft, non-tender, non-distended and no hepatosplenomegaly or masses : deferred Musculoskeletal: No clubbing, cyanosis or edema Skin: pinpoint petechiae on bilateral upper and lower extremities Neuro: alert, oriented, normal speech, no focal findings or movement disorder noted Labs/Objective Recent Results (from the past 24 hour(s)) DIFFERENTIAL MANUAL Collection Time 11/16/12 8:18 PM Component Value Range WBC Auto 5.1 4.4-10.7 X(10)9/L Neutro Manual 40 (*) 44-73 % Lymph Manual 35 20-43 % Assumption Manual 17 (*) 5-13 % Eos Manual 4 0-6 % Atyp Lymph Manual 1 (*) <=0 % Band Manual 3 0-11 % Cells Counted 100 Plt Est Markedly increased RBC Morph Normal WBC Morph Normal CBC W AUTO DIFFERENTIAL Collection Time 11/16/12 8:18 PM Component Value Range WBC 5.1 4.4-10.7 x10^9/L RBC 5.12 3.80-5.40 x10^12/L Hgb 16.0 12.0-17.6 g/dL HCT 45.4 35.2-51.7 % MCV 88.7 80.7-98.3 fl MCH 31.3 26.7-34.0 pg MCHC 35.2 30.8-35.9 gm/dL Plt Ct 3 (*) 153-416 x10^9/L COMPREHENSIVE METABOLIC PANEL Collection Time 11/16/12 8:18 PM Component Value Range Glucose 95 70-105 mg/dL Sodium 142 136-145 mmol/L Potassium 3.8 3.5-5.1 mmol/L Chloride 107 98-107 mmol/L CO2 25 22-29 mmol/L Calcium 9.78 9.08-10.48 mg/dL Anion Gap 10 5-20 mmol/L BUN 10.1 5.3-18.7 mg/dL Creatinine 0.91 0.61-1.07 mg/dL eGFR by MDRD >60 >60 ml/min/1.73m2 eGFR by MDRD AFR AMER >60 >60 ml/min/1.73m2 Alk Phos 144 (*) 39-139 U/L ALT/SGPT 52 (*) 6-46 U/L AST/SGOT 34 8-42 U/L Protein Total 7.1 6.3-8.2 gm/dL Albumin 4.1 3.3-4.9 gm/dL Bili Total 0.6 0.3-1.2 mg/dL Active Hospital Problems Diagnoses Date Noted ??? ITP (idiopathic thrombocytopenic purpura) 11/16/2012 17yo with h/o chronic ITP, viral hepatitis s/p liver transplant, hypogammaglobulinemia, now with exacerbation of petechial rash and fatigue. Currently stable with platelet count of three. To be admitted for IVIG therapy. No acute bleeding on admission. - pre-medicate with tylenol and benadryl - start 60 g of IVIG therapy - f/u AM CBC - continue home tacrolimus - continue course of augmentin for sinusitis - regular diet - tylenol PRN for pain Nancy Mota MD CC: Vilma Spangler [address] [place] [address] [address] / [facility] [id number] NERY OPERATOR VISBREAKING documented in this encounter Procedure Notes * Document, Scanned - 12/13/2012 10:17 AM CSTAssociated Order(s): LAB RESULTS ORDER NERY OPERATOR VISBREAKING documented in this encounter ED Notes * Regine Goldberg RN - 11/16/2012 10:29 PM CST Report given to Tahmina CASH on [address], waiting on admission orders before pt can be transferred to floor. Mobile NS at bedside doing admission. NERY OPERATOR VISBREAKING * Keysha Rubi MD - 11/16/2012 9:51 PM CST Images from the original note were not included. EMERGENCY DEPARTMENT 11/16/[address] Vilma Spangler We had the pleasure of caring for your patient, Beka Nichols in our emergency department on 11/16/2012. A note from the provider(s) who cared for your patient is attached. Should you wish to access any laboratory results, please call . Should you wish to access any radiology results, please call , option 3. In addition, you can access patient information 24 hours a day, from any computer, through Directly, the online version of our electronic medical record. If you would like to use this service, please call Ana Echols, Connectivity Coordinator, at . We appreciate the opportunity to care for your patients. If you would like additional information, please call the emergency department directly at . Sincerely, Keysha Rubi MD Division of Emergency Medicine [facility], [place] [facility] [place] DESIGNATED EMERGENCY DEPARTMENT Provider contact with the patient: 11/16/2012 21:51 Beka Nichols [id number] [facility] EMERGENCY DEPT History Chief Complaint Patient presents with ??? Rash Pt with h/o ITP. noted petechie today. Noted on bilateral arms, legs, and in mouth. PRESENTS: lungsclear. petechie noted in mouth on inner cheek, bilateral arms. ??? Fatigue times 2 weeks. ??? GENERALIZED BODY ACHES states joints achy times 2 days. HPI Comments: 17 year old male with history of chronic ITP (IVIG dependent), hypogammaglobulinemia,viral hepatitis at 4yo s/p liver transplant with history of acute rejection presents with increasing petechiae and fatigue. Beka was seen in the [facility] on Wednesday with c/o fatigue - CBC at that time showed plt of 80), he was given an IVF bolus, vaccines (mom can't recall which), started on augmentin (?sinus infection) and sent home. On Wednesday, patient noticed scattered petechiae over arms and legs which have since increased in number. Today he noticed mucosal involvement. No bleeding (denies epistaxis, gingival bleeding), no bruising. Has been afebrile. On daily tacrolimus. Was on aprednisone wean (stopped one week ago). Last IVIG treatment was early October. Scheduled for splenectomy in Dec 2012. Past Medical History Diagnosis Date ??? ITP (idiopathic thrombocytopenic purpura) ??? Platelet disorder ??? Hx of liver transplant 1998 ??? 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 ??? Unspecified disorder of liver Past Surgical History Procedure Date ??? Liver transplant 1998 ??? Pr dental surgery procedure 2011 Removal of [place] teeth in dental office under sedation History Social History ??? Marital Status: Single [...] History Narrative ??? No narrative on file Medications Current Outpatient Prescriptions Medication Sig Dispense Refill ??? tacrolimus (PROGRAF) 1 MG capsule Take 1 Cap by mouth 2 times daily. 60 Cap 6 ??? amoxicillin-clavulanate (AUGMENTIN) 875-125 MG tablet Take 1 Tab by mouth 2 times daily with morning and evening meal for 10 days. 20 Tab 0 ??? acetaminophen (TYLENOL) 325 MG tablet Take 325 mg by mouth every 4 hours as needed. Maximum allowable Acetaminophen amount = 4 Grams (4000 mg) / 24 hours. Review of Systems Review of Systems Constitutional: Positive for fatigue. Negative for fever. HENT: Negative for nosebleeds, congestion and rhinorrhea. Eyes: Negative. Respiratory: Negative for cough. Cardiovascular: Negative for chest pain. Gastrointestinal: Negative for nausea, vomiting and blood in stool. Genitourinary: Negative. Musculoskeletal: Negative for joint swelling. Skin: Diffuse petechiae on upper and lower extremities Neurological: Negative for light-headedness and headaches. Hematological: Does not bruise/bleed easily. Psychiatric/Behavioral: Negative for confusion and decreased concentration. BP 128/80 Pulse 72 Temp 98.4 ??F Resp 20 Wt 57.6 kg (126 lb 15.8 oz) Physical Exam Physical Exam Constitutional: He appears well-developed and well-nourished. No distress. HENT: Head: Normocephalic and atraumatic. Mucosal and palate petechiae; purpura on inside of lips, tongue. Eyes: Pupils are equal, round, and reactive to light. Neck: Normal range of motion. No thyromegaly present. Cardiovascular: Normal rate, regular rhythm and normal heart sounds. No murmur heard. Pulmonary/Chest: Effort normal. No respiratory distress. Abdominal: Soft. Bowel sounds are normal. He exhibits no distension and no mass. Well healed surgical scars Neurological: He is alert. Skin: Skin is warm. Scattered petechiae of upper and lower extremities Procedures Procedures Lab/SPO2 Interpretation Component Name 11/16/12201711/16/12201703/24/11 0750 WBC 5.1 -- -- RBC 5.12 -- -- HGB 16.0 -- -- HCT 45.4 -- -- MCV 88.7 -- -- MCH 31.3 -- -- MCHC 35.2 -- -- RDW -- -- -- PLTCOUNT 3* -- -- BANDMANPCT -- 3 -- SEGMANPCT -- -- -- LYMPHMANPCT -- 35 -- MONOMANPCT -- 17* -- EOSMANPCT -- 4 -- ATYPLYMPHMAN -- 1* -- METAMANPCT -- -- -- MYELOMANPCT -- -- 1 PROMYELOMAN -- -- -- BLASTMANPCT -- -- -- IMMATUREPCT -- -- -- PLASMAMANPCT -- -- -- OTHERMANPCT -- -- -- NRBC -- -- -- WBCCORRECT -- -- -- RBCMORPH -- Normal -- WBCMORPH -- Normal -- Component Name 11/16/122017 SODIUM 142 POTASSIUM 3.8 CHLORIDE 107 CO2 25 BUN 10.1 CREATININE 0.91 GLUCOSE 95 CALCIUM 9.78 ALBUMIN 4.1 ALKPHOS 144* ALT 52* AST 34 TBIL 0.6 TPROT 7.1 EGFR >60 Progress Notes ED Course Medical Decision Making Discussed case with Dr. Fischer. Will admit to H/O for IVIG 60gram and repeat plt count in the AM. Clinical Impression Final diagnoses: Thrombocytopenia NERY OPERATOR VISBREAKING * Regine Goldberg RN - 11/16/2012 9:44 PM CST Resting quietly on stretcher. Right arm PIV flushes without diff. Pt aware he is going to be admitted. NERY OPERATOR VISBREAKING * Shanique Sousa MD - 11/16/2012 7:50 PM CST Provider contact with the patient: 11/16/2012 19:50 Beka Nichols [id number] [facility] EMERGENCY DEPT History Chief Complaint Patient presents with ??? Rash Pt with h/o ITP. noted petechie today. Noted on bilateral arms, legs, and in mouth. PRESENTS: lungsclear. petechie noted in mouth on inner cheek, bilateral arms. ??? Fatigue times 2 weeks. ??? GENERALIZED BODY ACHES states joints achy times 2 days. I have read the resident/DENTAL MANAGER history. Unless appended by me below, I agree with findings as documented. HPI Comments: 17 yr old with history of hypogammaglobulemia, chronic ITP scheduled for splenectomy,viral hepatitis s/p liver transplant - presenting with increasing petechiae, oral petechial spots. No bleeding gums. No fever. No abdominal pains. He has left sided pain. No blood in stool. 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 Last IVIG a month ago. Review of Systems Review of Systems All other systems reviewed and are negative. BP 128/80 Pulse 76 Temp 98.4 ??F Resp 20 Wt 57.6 kg (126 lb 15.8 oz) Physical Exam I have reviewed the resident/DENTAL MANAGER physical exam. Unless appended by me below, I agree with the PE as documented. Physical Exam Nursing note and vitals reviewed. Constitutional: He appears well-developed and well-nourished. No distress. HENT: Head: Normocephalic and atraumatic. Right Ear: External ear normal. Left Ear: External ear normal. Mouth/Throat: No oropharyngeal exudate. Petechia in palate, buccal mucosa Eyes: Conjunctivae are normal. Pupils are equal, round, and reactive to light. Right eye exhibits no discharge. Left eye exhibits no discharge. Neck: Normal range of motion. Neck supple. Cardiovascular: Normal rate, regular rhythm and normal heart sounds. No murmur heard. Pulmonary/Chest: Effort normal and breath sounds normal. No respiratory distress. He has no wheezes. He has no rales. He exhibits no tenderness. Abdominal: Soft. He exhibits no distension. There is no tenderness. There is no rebound and no guarding. Musculoskeletal: Normal range of motion. Neurological: He is alert. Skin: Skin is warm and dry. No rash noted. He is not diaphoretic. No erythema. No pallor. Psychiatric: His behavior is normal. Procedures Procedures Progress Notes ED Course Cbc, cmp Recent Results (from the past 24 hour(s)) DIFFERENTIAL MANUAL Collection Time 11/16/12 8:18 PM Component Value Range WBC Auto 5.1 4.4-10.7 X(10)9/L Neutro Manual 40 (*) 44-73 % Lymph Manual 35 20-43 % Assumption Manual 17 (*) 5-13 % Eos Manual 4 0-6 % Atyp Lymph Manual 1 (*) <=0 % Band Manual 3 0-11 % Cells Counted 100 Plt Est Markedly increased RBC Morph Normal WBC Morph Normal CBC W AUTO DIFFERENTIAL Collection Time 11/16/12 8:18 PM Component Value Range WBC 5.1 4.4-10.7 x10^9/L RBC 5.12 3.80-5.40 x10^12/L Hgb 16.0 12.0-17.6 g/dL HCT 45.4 35.2-51.7 % MCV 88.7 80.7-98.3 fl MCH 31.3 26.7-34.0 pg MCHC 35.2 30.8-35.9 gm/dL Plt Ct 3 (*) 153-416 x10^9/L COMPREHENSIVE METABOLIC PANEL Collection Time 11/16/12 8:18 PM Component Value Range Glucose 95 70-105 mg/dL Sodium 142 136-145 mmol/L Potassium 3.8 3.5-5.1 mmol/L Chloride 107 98-107 mmol/L CO2 25 22-29 mmol/L Calcium 9.78 9.08-10.48 mg/dL Anion Gap 10 5-20 mmol/L BUN 10.1 5.3-18.7 mg/dL Creatinine 0.91 0.61-1.07 mg/dL eGFR by MDRD >60 >60 ml/min/1.73m2 eGFR by MDRD AFR AMER >60 >60 ml/min/1.73m2 Alk Phos 144 (*) 39-139 U/L ALT/SGPT 52 (*) 6-46 U/L AST/SGOT 34 8-42 U/L Protein Total 7.1 6.3-8.2 gm/dL Albumin 4.1 3.3-4.9 gm/dL Bili Total 0.6 0.3-1.2 mg/dL D/w Dr Fischer, suggests to admit for IVIG and recheck CBC am Medical Decision Making I have personally seen and examined this patient. I have fully participated in the care of this patient. I have reviewed all pertinent clinical information available to me during this encounter, including history, physical exam and plan. I have reviewed nursing notes, available labs and radiographic studies. Clinical Impression Final diagnoses: None Thrombocytopenia Known chronic ITP H/o liver transplant Petechia / purpura NERY OPERATOR VISBREAKING * Regine Goldberg RN - 11/16/2012 7:35 PM CST Introduced self to pt. And Mom. Pt. Resting quietly on stretcher. NERY OPERATOR VISBREAKING documented in this encounter Miscellaneous Notes * Miscellaneous Scans - Document, Scanned - 11/21/2012 9:15 AM CST NERY OPERATOR VISBREAKING * Miscellaneous Scans - Document, Scanned - 11/21/2012 9:15 AM CST NERY OPERATOR VISBREAKING documented in this encounter Plan of Treatment Not on file documented as of this encounter Procedures Procedure Name Priority Date/Time Associated Diagnosis Comments LAB RESULTS ORDER 12/13/2012 10: 17 AM REFINERY OPERATOR VISBREAKING CBC W AUTO DIFFERENTIAL Routine 11/17/2012 5:01 PM REFINERY OPERATOR VISBREAKING DIFFERENTIAL MANUAL Routine 11/17/2012 5 :01 PM REFINERY OPERATOR VISBREAKING CBC W AUTO DIFFERENTIAL Routine 11/17/2012 7:48 AM REFINERY OPERATOR VISBREAKING DIFFERENTIAL MANUAL Routine 11/17/2012 7 :48 AM REFINERY OPERATOR VISBREAKING CBC W AUTO DIFFERENTIAL STAT 11/16/2012 8:18 PM REFINERY OPERATOR VISBREAKING COMPREHENSIVE METABOLIC PANEL STAT 11/16/2012 8:18 PM REFINERY OPERATOR VISBREAKING DIFFERENTIAL MANUAL STAT 11/16/2012 8 :18 PM REFINERY OPERATOR VISBREAKING documented in this encounter Results * LAB RESULTS ORDER (12/13/2012 10:17 AM REFINERY OPERATOR VISBREAKING) Narrative 12/13/2012 10:17 AM REFINERY OPERATOR VISBREAKING Procedure Note Document, Scanned - 12/13/2012 10:17 AM CST Scanned Document LAB - THERAPEUTIC DR MCCLELLAN MONITORING ORDERABLES * (ABNORMAL) CBC W AUTO DIFFERENTIAL (11/17/2012 5:01 PM REFINERY OPERATOR VISBREAKING) WBC 4.1(L) 4.4 - 10.7 x10^9/L 11/17/2012 5:41 PM [facility] RBC 4.84 3.80 - 5.40 x10^12/L 11/17/2012 5:41 PM [facility] Hemoglobin 15.2 12.0 - 17.6 g/dL 11/17/2012 5:41 PM [facility] Hematocrit 42.9 35.2 - 51.7 % 11/17/2012 5:41 PM [facility] MCV 88.6 80.7 - 98.3 fl 11/17/2012 5:41 PM [facility] MCH 31.4 26.7 - 34.0 pg 11/17/2012 5:41 PM [facility] MCHC 35.4 30.8 - 35.9 gm/dL 11/17/2012 5:41 PM [facility] Platelet Count 29(L) 153 - 416 x10^9/L 11/17/2012 5:41 PM [facility] Blood specimen (specimen) BLOOD SPECIMEN / Unknown 11/17/2012 5:01 PM REFINERY OPERATOR VISBREAKING 11/17/2012 5:06 PM REFINERY OPERATOR VISBREAKING Divine Alicia MD LAB - HEMATOLOGY ORD ERABLES Performing Organization Address City/[facility]/ZIP Co de Phone Number [facility] [address] [place] [address] * (ABNORMAL) DIFFERENTIAL MANUAL (11/17/2012 5:01 PM REFINERY OPERATOR VISBREAKING) WBC Auto 4.1(L) 4.4 - 10.7 X(10)9/L 11/17/2012 6:12 PM [facility] Neutrophil % Manual 42(L) 44 - 73 % 11/17/2012 6:12 PM [facility] Lymphocytes % Manual 33 20 - 43 % 11/17/2012 6:12 PM [facility] Monocytes % Manual 19(H) 5 - 13 % 11/17/2012 6:12 PM [facility] Eosinophils % Manual 5 0 - 6 % 11/17/2012 6:12 PM [facility] Atypical Lymphocyte % Manual 1(H) <=0 % 11/17/2012 6:12 PM [facility] Cells Counted 100 # cells 11/17/2012 6:12 PM [facility] Platelet Estimation Decreased 11/17/2012 6:12 PM [facility] RBC Morphology Normal 11/17/2012 6:12 PM [facility] WBC Morph Normal 11/17/2012 6:12 PM [facility] Blood specimen (specimen) BLOOD SPECIMEN / Unknown 11/17/2012 5:01 PM REFINERY OPERATOR VISBREAKING 11/17/2012 5:06 PM REFINERY OPERATOR VISBREAKING Divine Alicia MD LAB - HEMATOLOGY ORD ERABLES Performing Organization Address City/[facility]/ZIP Co de Phone Number [facility] [address] [place] [address] * (ABNORMAL) CBC W AUTO DIFFERENTIAL (11/17/2012 7:48 AM REFINERY OPERATOR VISBREAKING) WBC 3.6(L) 4.4 - 10.7 x10^9/L 11/17/2012 9:08 AM [facility] RBC 4.53 3.80 - 5.40 x10^12/L 11/17/2012 9:08 AM [facility] Hemoglobin 14.6 12.0 - 17.6 g/dL 11/17/2012 9:08 AM [facility] Hematocrit 40.6 35.2 - 51.7 % 11/17/2012 9:08 AM [facility] MCV 89.6 80.7 - 98.3 fl 11/17/2012 9:08 AM [facility] MCH 32.2 26.7 - 34.0 pg 11/17/2012 9:08 AM [facility] MCHC 36.0(H) 30.8 - 35.9 gm/dL 11/17/2012 9:08 AM [facility] RDW-CV 12.9 12.1 - 14.9 % 11/17/2012 9:08 AM [facility] Neutrophils % 50 44 - 73 % 11/17/2012 9:08 AM [facility] Lymphocytes % 24 20 - 43 % 11/17/2012 9:08 AM [facility] Monocytes % 21(H) 5 - 13 % 11/17/2012 9:08 AM [facility] Eosinophils % 4 0 - 6 % 11/17/2012 9:08 AM [facility] Basophils % 0 0 - 2 % 11/17/2012 9:08 AM [facility] Immature Granulocytes 0.6 0 - 1 % 11/17/2012 9:08 AM [facility] Neutrophil Absolute 1.81(L) 2.01 - 7.14 x10^9/L 11/17/2012 9:08 AM [facility] Lymphocytes Absolute 0.86(L) 1.07 - 3.94 x10^9/L 11/17/2012 9:08 AM [facility] Monocytes Absolute 0.74 0.26 - 1.07 x10^9/L 11/17/2012 9:08 AM [facility] Eosinophils Absolute 0.16 0 - 0.47 x10^9/L 11/17/2012 9:08 AM [facility] Basophils Absolute 0.01 0 - 0.08 x10^9/L 11/17/2012 9:08 AM [facility] Immature Granulocytes Absolute 0.02 0.00 - 0.06 x10^9/L 11/17/2012 9:08 AM [facility] Hematology Reflex Status Manual Diff to follow (none) 11/17/2012 9:08 AM [facility] Platelet Count 8(LL) 153 - 416 x10^9/L 11/17/2012 9:08 AM [facility] Blood specimen (specimen) BLOOD SPECIMEN / Unknown 11/17/2012 7:48 AM [facility] 11/17/2012 8:00 AM [facility] Nancy Mota MD LAB - HEMATO LOGY ORDERABLES Performing Organization Address City/State/[facility] Co de Phone Number [facility] [address] [place] [address] * (ABNORMAL) DIFFERENTIAL MANUAL (11/17/2012 7:48 AM [facility]) WBC Auto 3.6(L) 4.4 - 10.7 X(10)9/L 11/17/2012 9:08 AM [facility] Neutrophil % Manual 38(L) 44 - 73 % 11/17/2012 9:08 AM [facility] Lymphocytes % Manual 17(L) 20 - 43 % 11/17/2012 9:08 AM [facility] Monocytes % Manual 22(H) 5 - 13 % 2012 9:08 AM [facility] Eosinophils % Manual 3 0 - 6 % 11/17/2012 9:08 AM [facility] Atypical Lymphocyte % Manual 11(H) <=0 % 11/17/2012 9:08 AM [facility] Band % Manual 9 0 - 11 % 11/17/2012 9:08 AM [facility] Cells Counted 100 # cells 11/17/2012 9:08 AM [facility] Platelet Estimation Decreased 11/17/2012 9:08 AM [facility] WBC Morph Normal 11/17/2012 9:08 AM [facility] Anisocytosis Slight 11/17/2012 9:08 AM [facility] Poikilocytosis Slight 11/17/2012 9:08 AM [facility] Stomatocytes Slight 11/17/2012 9:08 AM [facility] Blood specimen (specimen) BLOOD SPECIMEN / Unknown 11/17/2012 7:48 AM REFINERY OPERATOR VISBREAKING 11/17/2012 8:00 AM [facility] Nancy Mota MD LAB - HEMATO LOGY ORDERABLES [facility] [address] [facility] [place] [address] * (ABNORMAL) COMPREHENSIVE METABOLIC PANEL (11/16/2012 8:18 PM REFINERY OPERATOR VISBREAKING) Glucose 95 70 - 105 mg/dL 11/16/2012 8:54 PM [facility] Sodium 142 136 - 145 mmol/L 11/16/2012 8:54 PM [facility] Potassium 3.8 3.5 - 5.1 mmol/L 11/16/2012 8:54 PM [facility] Chloride 107 98 - 107 mmol/L 11/16/2012 8:54 PM [facility] CO2 25 22 - 29 mmol/L 11/16/2012 8:54 PM [facility] Calcium 9.78 9.08 - 10.48 mg/dL 11/16/2012 8:54 PM [facility] Anion Gap 10 5 - 20 mmol/L 11/16/2012 8:54 PM [facility] BUN 10.1 5.3 - 18.7 mg/dL 11/16/2012 8:54 PM [facility] Creatinine 0.91 0.61 - 1.07 mg/dL 11/16/2012 8:54 PM [facility] eGFR by MDRD >60 >60 ml/min/1.7 3m2 11/16/2012 8:54 PM [facility] eGFR by MDRD >60 >60 ml/min/1.7 3m2 11/16/2012 8:54 PM [facility] Alkaline Phosphatase 144(H) 39 - 139 U/L 11/16/2012 8:54 PM [facility] ALT 52(H) 6 - 46 U/L 11/16/2012 8:54 PM [facility] AST 34 8 - 42 U/L 11/16/2012 8:54 PM [facility] Protein Total 7.1 6.3 - 8.2 gm/dL 11/16/2012 8:54 PM [facility] Albumin 4.1 3.3 - 4.9 gm/dL 11/16/2012 8:54 PM [facility] Bilirubin Total 0.6 0.3 - 1.2 mg/dL 11/16/2012 8:54 PM [facility] Blood specimen (specimen) BLOOD SPECIMEN / Unknown 11/16/2012 8:18 PM REFINERY OPERATOR VISBREAKING 11/16/2012 8:28 PM REFINERY OPERATOR VISBREAKING Keysha Rubi MD LAB - CHEMISTRY ORDE RABJIM Performing Organization Address [facility]/ZIP Co de Phone Number [facility] [address] [place] [address] * (ABNORMAL) CBC W AUTO DIFFERENTIAL (11/16/2012 8:18 PM REFINERY OPERATOR VISBREAKING) WBC 5.1 4.4 - 10.7 x10^9/L 11/16/2012 8:41 PM [facility] RBC 5.12 3.80 - 5.40 x10^12/L 11/16/2012 8:41 PM [facility] Hemoglobin 16.0 12.0 - 17.6 g/dL 11/16/2012 8:41 PM [facility] Hematocrit 45.4 35.2 - 51.7 % 11/16/2012 8:41 PM [facility] MCV 88.7 80.7 - 98.3 fl 11/16/2012 8:41 PM [facility] MCH 31.3 26.7 - 34.0 pg 11/16/2012 8:41 PM [facility] MCHC 35.2 30.8 - 35.9 gm/dL 11/16/2012 8:41 PM [facility] Platelet Count 3(LL) 153 - 416 x10^9/L 11/16/2012 8:41 PM [facility] Blood specimen (specimen) BLOOD SPECIMEN / Unknown 11/16/2012 8:18 PM REFINERY OPERATOR VISBREAKING 11/16/2012 8:28 PM REFINERY OPERATOR VISBREAKING Keysha Rubi MD LAB - HEMATOLOGY ORD ERABLES Performing Organization Address [facility]/ZIP Co de Phone Number [facility] [address] [place] [address] * (ABNORMAL) DIFFERENTIAL MANUAL (11/16/2012 8:18 PM REFINERY OPERATOR VISBREAKING) Pathologist [facility] WBC Auto 5.1 4.4 - 10.7 X(10)9/L 11/16/2012 9:01 PM [facility] Neutrophil % Manual 40(L) 44 - 73 % 11/16/2012 9:01 PM [facility] Lymphocytes % Manual 35 20 - 43 % 11/16/2012 9:01 PM [facility] Monocytes % Manual 17(H) 5 - 13 % 11/16/2012 9:01 PM [facility] Eosinophils % Manual 4 0 - 6 % 11/16/2012 9:01 PM [facility] Atypical Lymphocyte % Manual 1(H) <=0 % 11/16/2012 9:01 PM [facility] Band % Manual 3 0 - 11 % 11/16/2012 9:01 PM [facility] Cells Counted 100 # cells 11/16/2012 9:01 PM [facility] Platelet Estimation Markedly increased 11/16/2012 9:01 PM [facility] RBC Morphology Normal 11/16/2012 9:01 PM [facility] WBC Morph Normal 11/16/2012 9:01 PM [facility] Blood specimen (specimen) BLOOD SPECIMEN / Unknown 11/16/2012 8:18 PM REFINERY OPERATOR VISBREAKING 11/16/2012 8:28 PM REFINERY OPERATOR VISBREAKING Keysha Rubi MD LAB - HEMATOLOGY ORD ERABLES Performing Organization Address City/State/[facility] Co de Phone Number [facility] [address] [place] [address] documented in this encounter Visit Diagnoses Diagnosis Thrombocytopenia (HCC) Thrombocytopenia, unspecified ITP (idiopathic thrombocytopenic purpura) (HCC) Immune thrombocytopenic purpura documented in this encounter Administered Medications Inactive Administered Medications - up to 3 most recent administrations Medication Order MAR Action Action Date Dose Rate Site acetaminophen (TYLENOL) tablet 500 mg 500 mg, Oral, ONCE, 1 dose, On Brenda 11/17/12 at 0000, Administer one (1) hour prior to IVIG administration. $ Given 11/17/2012 12:56 AM REFINERY OPERATOR VISBREAKING 500 mg amoxicillin-clavulanate (AUGMENTIN) tablet 875 mg 875 mg, Oral, 2 TIMES DAILY WITH MEALS, First dose on Wed11/16/12 at 2345, Until Discontinued, Administer with food to decrease GI side effects. $ Given 11/17/2012 8:02 AM REFINERY OPERATOR VISBREAKING 875 mg $ Given 11/17/2012 12:02 AM REFINERY OPERATOR VISBREAKING 875 mg diphenhydrAMINE (BENADRYL) tablet 50 mg 50 mg, Oral, ONCE, 1 dose, On Wed11/17/12 at 0015, Administer one hour prior to IVIG $ Given 11/17/2012 12:56 AM REFINERY OPERATOR VISBREAKING 50 mg immune globulin (human) (PRIVIGEN) 10 % infusion 60 g 60 g, Intravenous, CONTINUOUS, Starting on Wed11/17/12 at 0100, Until Wed11/17/12 at 0459, Intravenous, CONTINUOUS for 4 hours, Initiate infusion at a rate of [...] half the previous rate. $ New Bag/Syringe 11/17/2012 1:25 AM REFINERY OPERATOR VISBREAKING 60 g mL /hr tacrolimus (PROGRAF) capsule 1 mg 1 mg, Oral, 2 TIMES DAILY, First dose (after last modification) on Wed11/17/12 at 0830, Until Discontinued, Do not crush or open capsules and avoid inhalation and direct contact with skin or mucous membrane. $ Given 11/17/2012 8:02 AM REFINERY OPERATOR VISBREAKING 1 mg documented in this encounter Active and Recently Administered Medications Times are shown in REFINERY OPERATOR VISBREAKING. Scheduled Medication Order 11/15/2012 11/16/2012 11/17/2012 acetaminophen (TYLENOL) tablet 500 mg (COMPLETED) 500 mg, Oral, ONCE, 1 dose, On Wed11/17/12 at 0000, Administer one (1) hour prior to IVIG administration. 0056 ($ Given - Prov ider: Erica Lyons RN) amoxicillin-clavulanate (AUGMENTIN) tablet 875 mg (CANCELED) 875 mg, Oral, 2 TIMES DAILY WITH MEALS, First dose on Wed11/16/12 at 2345, Until Discontinued, Administer with food to decrease GI side effects. 0002 ($ Given - Prov ider: Erica Lyons RN)0802 ($ Given - Provider: Minnie Rogers RN)1800 (Due) diphenhydrAMINE (BENADRYL) tablet 50 mg (COMPLETED) 50 mg, Oral, ONCE, 1 dose, On Brenda 11/17/12 at 0015, Administer one hour prior to IVIG 0056 ($ Given - Prov ider: Erica Lyons RN) tacrolimus (PROGRAF) capsule 1 mg (CANCELED) 1 mg, Oral, 2 TIMES DAILY, First dose (after last modification) on Brenda 11/17/12 at 0830, Until Discontinued, Do not crush or open capsules and avoid inhalation and direct contact with skin or mucous membrane. 0802 ($ Given - Prov ider: Minnie Rogers RN) Continuous Medication Order 11/15/2012 11/16/2012 11/17/2012 immune globulin (human) (PRIVIGEN) 10 % infusion 60 g () 60 g, Intravenous, CONTINUOUS, Starting on Brenda 11/17/12 at 0100, Until Brenda 11/17/12 at 0459, Intravenous, CONTINUOUS for 4 hours, Initiate infusion at a rate of [...] rate at one half the previous rate. 0125 ($ New Bag/Syri nge - Provider: Erica Lyons RN) documented in this encounter Care Teams Setter Molding And Coremaking Machines Relationship Specialty Start Date End Date Vilma Spangler MD [address] [place] [address] PCP - General 01/05/11 documented as of this encounter
--- OUTSIDE RECORDS SUMMARY | 2024-10-28 05:56 | XMS_ITS | Encounter Summary ---
Author Organization [facility] Address [address] [facility] [place] [address] Care Team Providers Care Cake Icer Name Role Phone Vilma Spangler MD Primary Care Provider [phone] Reason for Visit * Reason Onset Date Comments Follow-up 11/11/2012 Encounter Details Date Type Department Care Team (Late st Contact Info) Description 11/11/[address] [facility] at [address] [address] Sherry Rebolledo RN Follow-up Social History Tobacco Use Types [...] Telephone Encounter - Dariela Winston RN - 11/11/2012 8:56 AM CST Mom called stating that Beka has not been feeling and complaining of feeling very tired. No bleeding reported, but does have some petechiae on back of neck, chest and in mouth. Instructed mom to bring Beka into clinic to check counts. Dr. Fischer aware. AND CUTTER HAND documented in this encounter Plan of Treatment Not on file documented as of this encounter Visit Diagnoses Not on filedocumented in this encounter Care Teams Cake Icer Relationship Specialty Start Date End Date Vilma Spangler MD [address] [place], [place] [id number] PCP - General 01/05/11 documented as of this encounter
--- OUTSIDE RECORDS SUMMARY | 2024-10-28 05:56 | XMS_ITS | Encounter Summary ---
Author Organization [facility] Address [address] [facility] [place] [address] Care Team Providers Care Health And Wellness Coordinator Name Role Phone Vilma Spangler MD Primary Care Provider [phone] Reason for Visit * Auth/Cert - Closed Specialty Diagnoses / Procedures Referred By Contyadira t Referred To Contact Diagnoses Primary thrombocytopenia, unspecified (HCC) Procedures SPLENECTOMY LAPAROSCOPIC SPLENECTOMY Referral ID Status Reason Start Date Expiration Date Visits Re quested Visits Authorized [id number] Closed 1 1 Encounter Details Date Type Department Care Team (Late st Contact Info) Description 12/23/2012 7:57 AM RETAIL AREA MANAGER Anesthesia Event [facility] - Periop [address] [place] [id number] Shelly Lawrence MD [address] [place] [id number] Edgar Fried MD [address] [place] [id number] Anesthesia Record Procedure Summary Procedure Name Responsible Anesthesiologist Anesthesia Start Time Anesthesia Stop Time LAPAROSCOPIC SPLENECTOMY (Abdomen) Shelly Lawrence MD 12/23/12 0757 12/23/12 1351 Events Date Time Event Comment 12/23/2012 0757 An Start 0758 An Start Data 0802 An Induction 0806 An Intubation [address] Sosa call ed to OR room to help with surgery. Patient had acute blood loss of greater than a 1000 cc. Patient was given blood, and IV fluids. After two units of blood given venous blood gas was drawn. VBG showed a hematocrit of 49. 1149 Quick Note Blood loss cont rolled. VSS. Platelets being transfused 1333 Extubation 1341 an stop data 1351 An Stop Patient was tra nsported to the PICU on 6L O2 via face mask and SPO2 monitoring. VSS. Full report was given to the nurses. All questions were answered. Meds Name Total ceFAZolin (Ancef) 1 g injection 2 g fentaNYL (SUBLIMAZE) 50 mcg/ml 100 mcg lidocaine (MPF) 2% injection 100 mg propofol (DIPRIVAN) 10 mg/mL 200 mg cisatracurium (NIMBEX) 2mg/ml 40 mg morphine 5 mg/ml injection (currently sh ortage issues 12/21/13) 12.5 mg calcium chloride 10% injection 500 mg midazolam (VERSED) 1 mg/mL injection 2 m g ondansetron (ZOFRAN) 2mg/mL injection 4 mg neostigmine 1 mg/ml injection 3 mg glycopyrrolate (ROBINUL) 0.2mg/ml inject ion 0.6 mg isolyte-S pH 7.4 infusion 1,000 mL isolyte-S pH 7.4 infusion 2,000 mL * Agents Name Insp. N2O Exp. Sevoflurane O2 Air Insp. Sevoflurane * Blood No blood administrations on file. Lines, Drains, and Airways Type Details Placement Removal Drain 12/23/12; 1210; Stacey Fung MD; Channel; 10mm flat full fluted; Left; Other (comments) (upper quadrant); General Anesthesia 12/23/12 1210 by Gabriela Duke RN Peripheral IV Date: 12/23/12; Time : 0650; Orientation: Right; Placed By: courtney bazan rn; Tolerance: Well 12/23/12 0650 by Tosha Bazan RN 12/28/12 1602 by Suze Rollins RN ETT Date: 12/23/12; Time : 0806; Placed By: Jose R QUINTANILLA ; Blade Type: Romain; Blade Size: 3; Laryngoscopy View: Grade 1; Tube: Endotracheal Tube-Hi/Lo; Tube Type: Cuffed-inflated; Tube Size(mm): 7 MM; Depth of Insertion: 21 CM; Cuff Infated: Air; Verified By: Chest Auscultation, CO2 Monitor, CO2 Detector 12/23/12 0806 by Stu Odell MD 12/23/12 1333 by Stu Odell MD Peripheral IV Date: 12/23/12; Time : 0809; Orientation: Left; Placed By: Jose R QUINTANILLA ; Tolerance: Well, General Anesthesia 12/23/12 0809 by Stu Odell MD 12/26/12 1638 by Keya Allen RN Urethral Catheter 12/23/12; 0815; Surg sandra (inserted without difficulty secured right thigh with statloc); Sussy Ashraf RN; 16; General Anesthesia; 12/24/12; 0845; SHAILESH Rider 12/23/12 0815 by Sussy Ashraf RN 12/24/12 0845 by Pool Jean-Baptiste RN Gastric Tube 12/23/12; 0816; Isabel cuadra MD ; NGT; 18; Well, General Anesthesia; 12/26/12; 1436; CAbdi CASH 12/23/12 0816 by Stu Odell MD 12/26/12 1436 by Keya Allen RN RETIRED Procedural Site 12/23/12; 0845; Lower; Abdomen (first laparoscopic site); 12/28/12; 2206 12/23/12 0845 by Sussy Ashraf RN 12/28/12 2206 by Generic, Auto Release RETIRED Procedural Site 12/23/12; 0853; Upper, Left; Abdomen; 12/28/12; 2206 12/23/12 0853 by Sussy Ashraf RN 12/28/12 2206 by Generic, Auto Release documented in this encounter Social History Tobacco [...] as of this encounter Progress Notes * Shelly Lawrence MD - 12/23/2012 3:13 PM CST ANESTHESIA POSTPROCEDURE EVALUATION Beka Nichols is a 17 y.o. male Temp: 37.1 ??C Pulse: 102 Resp: 22 BP: 119/53 mmHg A postop evaluation was performed on this patient with the following assessment: no apparent anesthesia complications Mental status: sufficiently recovered from acute administration of anesthesia to participate in theevaluation. Level of consciousness: sedated General appearance: well-appearing Respiratory function: natural airway. Cardiac: stable PONV: None Postop hydration: adequate. Final anesthesia type: general endotracheal Patient may be released from anesthesia care. Post-Op Diagnosis Codes: * Primary thrombocytopenia, unspecified [287.30] [place] AREA MANAGER * Shelly Lawrence MD - 12/23/2012 6:37 AM CST PRE-ANESTHESIA EVALUATION Procedure(s) (LRB): SPLENECTOMY LAPAROSCOPIC (N/A) SPLENECTOMY () Vital Signs: Temp: [36.8 ??C] Pulse: [76] Resp: [16] BP: (106)/(72) SpO2: [97 %] BMI: Estimated Body mass index is 19.39 kg/(m^2) as calculated from the following: Height as of 12/22/12: 5' 6.732 (1.695 m). Weight as of 12/22/12: 122 lb 12.7 oz(55.7 kg). History: Past Medical History Diagnosis Date ??? ITP (idiopathic thrombocytopenic purpura) ??? Platelet disorder ??? Hx of liver transplant 1998 ??? 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 ??? Unspecified disorder of liver ??? Complication of anesthesia PONV Past Surgical History Procedure Date ??? Liver transplant 1998 ??? Pr dental surgery procedure 2011 Removal of [place] teeth in dental office under sedation ??? Ent surgery 03/2012 Excision of left neck deep cervical node ??? Liver biopsy multiple ??? Bone marrow biopsy multiple Allergies: has no known allergies. Medications: No current facility-administered medications for this visit. No current outpatient prescriptions on file. Prescriptions prior to admission Medication Sig Dispense Refill ??? tacrolimus (PROGRAF) 1 MG capsule Take 1 Cap by mouth 2 times daily. 60 Cap 6 ??? acetaminophen (TYLENOL) 325 MG tablet Take 325 mg by mouth every 4 hours as needed. Maximum allowable Acetaminophen amount = 4 Grams (4000 mg) / 24 hours. Physical Exam: NPO status: Since midnight Oriented x 3 Dental exam findings: OK. Airway class: I. Pulmonary exam: clear to auscultation. Cardiovascular exam positive for: S1 S2. Obesity: weight WNL for height. Other comments: Heme/Onc said no need for stress dose steroids. Plan for Anesthesia: ASA 3 ASA Comments: ITP, Hypogammaglobulinemia, platelet dysfunction Planned intraoperative anesthesia: general Planned postop anesthesia per surgeon request: opioids. Planned postop destination: PACU Planned induction: Intravenous Anesthetic plan, risks and benefits discussed with father, mother and patient. Anesthesia consent: questions answered / anesthesia plan accepted Use of blood products discussed with patient, father and mother. Blood products consent: Consent for blood products received [place] AREA MANAGER documented in this encounter Plan of Treatment Not on file documented as of this encounter Visit Diagnoses Not on filedocumented in this encounter Administered Medications Inactive Administered Medications - up to 3 most recent administrations Medication Order MAR Action Action Date Dose Rate Site calcium chloride 10 % injection PRN, Other, Starting on Wed12/23/12 at 1200, Until Wed12/23/12 at 1351, Anesthesia Intra-op $ Given 12/23/2012 12:00 PM RETAIL AREA MANAGER 500 mg ceFAZolin (ANCEF) injection PRN, Starting on Wed12/23/12 at 0827, Until Wed12/23/12 at 1351, Anesthesia Intra-op $ Given 12/23/2012 11:29 AM RETAIL AREA MANAGER 1 g $ Given 12/23/2012 8:27 AM RETAIL AREA MANAGER 1 g cisatracurium (NIMBEX) injection PRN, Starting on Wed12/23/12 at 0802, Until Wed12/23/12 at 1351, Anesthesia Intra-op $ Given 12/23/2012 12:30 PM RETAIL AREA MANAGER 6 mg $ Given 12/23/2012 12:00 PM RETAIL AREA MANAGER 4 mg $ Given 12/23/2012 11:15 AM RETAIL AREA MANAGER 6 mg fentaNYL (SUBLIMAZE) injection PRN, Starting on Wed12/23/12 at 0802, Until Wed12/23/12 at 1351, Anesthesia Intra-op $ Given 12/23/2012 8:02 AM RETAIL AREA MANAGER 100 mcg glycopyrrolate (ROBINUL) injection PRN, Starting on Wed12/23/12 at 1329, Until Wed12/23/12 at 1351, Anesthesia Intra-op $ Given 12/23/2012 1:29 PM RETAIL AREA MANAGER 0.6 mg isolyte-S pH 7.4 infusion CONTINUOUS PRN, Starting on Wed12/23/12 at 0757, Until Wed12/23/12 at 1351, Anesthesia Intra-op $ New Bag/Syringe 12/23/2012 11:47 AM RETAIL AREA MANAGER mL $ New Bag/Syringe 12/23/2012 7:57 AM RETAIL AREA MANAGER mL isolyte-S pH 7.4 infusion CONTINUOUS PRN, Starting on Wed12/23/12 at 0809, Until Wed12/23/12 at 1351, Anesthesia Intra-op $ New Bag/Syringe 12/23/2012 12:45 PM RETAIL AREA MANAGER mL $ New Bag/Syringe 12/23/2012 10:30 AM RETAIL AREA MANAGER mL $ New Bag/Syringe 12/23/2012 9:15 AM RETAIL AREA MANAGER mL lidocaine (XYLOCAINE MPF) 2 % injection PRN, Starting on Wed12/23/12 at 0802, Until Wed12/23/12 at 1351, Anesthesia Intra-op $ Given 12/23/2012 8:02 AM RETAIL AREA MANAGER 100 mg midazolam (VERSED) injection PRN, Starting on Wed12/23/12 at 0757, Until Wed12/23/12 at 1351, Anesthesia Intra-op $ Given 12/23/2012 7:57 AM RETAIL AREA MANAGER 2 m g morphine injection PRN, Starting on Wed12/23/12 at 0902, Until Wed12/23/12 at 1351, Anesthesia Intra-op $ Given 12/23/2012 1:20 PM RETAIL AREA MANAGER 2.5 mg $ Given 12/23/2012 1:03 PM RETAIL AREA MANAGER 1 mg $ Given 12/23/2012 12:15 PM RETAIL AREA MANAGER 1.5 mg neostigmine (PROSTIGMIN) injection PRN, Starting on Wed12/23/12 at 1329, Until Wed12/23/12 at 1351, Anesthesia Intra-op $ Given 12/23/2012 1:29 PM RETAIL AREA MANAGER 3 m g ondansetron (ZOFRAN) injection PRN, Nausea/Vomiting, Starting on Wed12/23/12 at 1329, Until Wed12/23/12 at 1351, Anesthesia Intra-op $ Given 12/23/2012 1:29 PM RETAIL AREA MANAGER 4 mg propofol (DIPRIVAN) 10 mg/ml injection PRN, Sedation, Starting on Wed12/23/12 at 0802, Until Wed12/23/12 at 1351, Anesthesia Intra-op $ Given 12/23/2012 1:20 PM RETAIL AREA MANAGER 50 mg $ Given 12/23/2012 8:02 AM RETAIL AREA MANAGER 150 mg documented in this encounter Care Teams Health And Wellness Coordinator Relationship Specialty Start Date End Date Vilma Spangler MD [address] [facility] [address] [place] [id number] PCP - General 01/05/11 documented as of this encounter
--- OUTSIDE RECORDS SUMMARY | 2024-10-28 05:56 | XMS_ITS | Encounter Summary ---
Author Organization [facility] Address [address] [facility] [address] Care Team Providers Care Track Layer Head Name Role Phone Vilma Spangler MD Primary Care Provider [phone] Reason for Visit * Reason Onset Date Comments MEDICATION REFILL 01/30/2013 Encounter Details Date Type Department Care Team (Late st Contact Info) Description 01/30/2013 Refill [facility] - [address] [address] Felipe Mon MD [address] [place] [id number] MEDICATION REFILL Social History Tobacco Use Types [...] transplant documented in this encounter Care Teams Track Layer Head Relationship Specialty Start Date End Date Vilma Spangler MD [address] [address] PCP - General 01/05/11 documented as of this encounter
--- OUTSIDE RECORDS SUMMARY | 2024-10-28 05:56 | XMS_ITS | Encounter Summary ---
Author Organization [facility] Address [address] [facility] [place] [address] Care Team Providers Care Machine Shop Apprentice Name Role Phone Vilma Spangler MD Primary Care Provider Encounter Details Date Type Department Care Team (Latest Contact Info) Description 05/01/2013 8:00 AM CDT - 05/01/2013 11:59 PM CDT Hospital Encounter [facility] at [address] [address] Shivani Fernandez MD [address] [place] [id number] Discharge Disposition: Home or Self Care Social [...] Sign Reading Time Taken Comments Blood Pressure 119/56 05/01/2013 9:00 AM CDT Pulse 75 05/01/2013 9:00 AM CDT Temperature 36.7 ??C (98.1 ??F) 05/01/2013 9:00 AM CD T Respiratory Rate 18 05/01/2013 9:00 AM CDT Oxygen Saturation 99% 05/01/2013 9:00 AM CDT Inhaled Oxygen Concentration - - Weight 56 kg (123 lb 7.3 oz) 05/01/2013 9:00 AM CDT Height 169.4 cm (5' 6.69 ) 05/01/2013 9:00 AM CD T Body Mass Index 19.51 05/01/2013 9:00 AM CDT documented in this encounter Medications at Time of Discharge Medication Sig Dispensed Refills Start Date End Date acetaminophen (TYLENOL) 325 MG tablet Take 325 mg by mouth every 4 hours as needed. Maximum allowable Acetaminophen amount = 4 Grams (4000 mg) / 24 hours. sulfamethoxazole-trim ethoprim (BACTRIM DS; SEPTRA DS) 800-160 MG tabletIndications:Silvia er replaced by transplant ([facility]) Take 1 Tab by mouth once daily. 30 Tab 4 01/30/2013 07/18/2013 tacrolimus (PROGRAF) 0.5 MG capsuleIndications:Li ruben replaced by transplant ([facility]) Take 1 Cap by mouth 2 times daily. 60 Cap 4 01/30/2013 07/18/2013 documented as of this encounter Progress Notes * Ileana Goode APRN-CNP - 05/01/2013 10:39 AM CDT Pt arrived in clinic, triaged, and assessed by RN. Here for scheduled labs and possible IVIG. No complaints per patient to this RN. Left AC 22 gauge peripheral IV started without difficulty. Positiveblood return noted and labs obtained. NS flushes easily and dressing applied. Labs reviewd with . Report given to Charles Rebolledo RN to take over the remainder of the patient's care. * Sherry Rebolledo RN - 05/01/2013 10:29 AM CDT Patient arrived to clinic accompanied by mother for labs and possible IVIG. Patient triaged and assessed by RN. Labs drawn and IV started by Sai Goode RN. Patient's IGG 757. Notified Dr. Chavez who did not order IVIG. IV discontinued, catheter intact. Patient D/C home and will return in two weeks for labs, visit, and possible IVIG. * Philip Chavez MD - 05/01/2013 9:45 AM CDT IgG 757 Return in two weeks for IgG and possible IVIG. documented in this encounter Miscellaneous Notes * Miscellaneous Scans - Document, Scanned - 05/02/2013 6:09 PM CDT documented in this encounter Plan of Treatment Not on file documented as of this encounter Procedures Procedure Name Priority Date/Time Associated Diagnosis Comments CBC W AUTO DIFFERENTIAL STAT 05/01/2013 8:58 AM CDT Hypogammaglobulinemia (HCC) ITP (idiopathic thrombocytopenic purpura) IGG BLOOD STAT 05/01/2013 8:58 AM CDT Hypogammaglobulinemia (HCC) ITP (idiopathic thrombocytopenic purpura) documented in this encounter Results * IGG BLOOD (05/01/2013 8:58 AM CDT) IgG 757 540 - 1,822 mg/dL 05/01/2013 9:31 AM CDT [facility] Blood specimen (specimen) BLOOD SPECIMEN / Unknown Venipuncture / Unknown 05/01/2013 8:58 AM CDT 05/01/2013 9:05 AM CDT Shivani Fernandez MD LAB - CHEMISTRY MACIE HERNÁNDEZ [facility] Organization Address City/State/[facility] Co de Phone Number [facility] [place] [address] * (ABNORMAL) CBC W AUTO DIFFERENTIAL (05/01/2013 8:58 AM CDT) WBC 8.4 4.4 - 10.7 x10^9/L 05/01/2013 9:30 AM CDT [facility] RBC 4.87 3.80 - 5.40 x10^12/L 05/01/2013 9:30 AM CDT [facility] Hemoglobin 15.7 12.0 - 17.6 g/dL 05/01/2013 9:30 AM CDT [facility] Hematocrit 43.1 35.2 - 51.7 % 05/01/2013 9:[address] [facility] MCV 88.5 80.7 - 98.3 fl 05/01/2013 9:30 AM [facility] MCH 32.2 26.7 - 34.0 pg 05/01/2013 9:30 AM [facility] MCHC 36.4(H) 30.8 - 35.9 gm/dL 05/01/2013 9:30 AM [facility] Platelet Count 372 153 - 416 x10^9/L 05/01/2013 9:30 AM [facility] RDW-CV 15.2(H) 12.1 - 14.9 % 05/01/2013 9:30 AM [facility] MPV 10.6 9.4 - 12.9 fl 05/01/2013 9:30 AM [facility] Neutrophils % 55 44 - 73 % 05/01/2013 9:30 AM [facility] Lymphocytes % 28 20 - 43 % 05/01/2013 9:30 AM [facility] Monocytes % 15(H) 5 - 13 % 05/01/2013 9:30 AM [facility] Eosinophils % 1 0 - 6 % 05/01/2013 9:30 AM [facility] Basophils % 0 0 - 2 % 05/01/2013 9:30 AM [facility] Immature Granulocytes 0.2 0 - 1 % 05/01/2013 9:30 AM [facility] Neutrophil Absolute 4.59 2.01 - 7.14 x10^9/L 05/01/2013 9:30 AM [facility] Lymphocytes Absolute 2.36 1.07 - 3.94 x10^9/L 05/01/2013 9:30 AM [facility] Monocytes Absolute 1.24(H) 0.26 - 1.07 x10^9/L 05/01/2013 9:30 AM [facility] Eosinophils Absolute 0.11 0 - 0.47 x10^9/L 05/01/2013 9:30 AM [facility] Basophils Absolute 0.03 0 - 0.08 x10^9/L 05/01/2013 9:30 AM [facility] Immature Granulocytes Absolute 0.02 0.00 - 0.06 x10^9/L 05/01/2013 9:30 AM [facility] Blood specimen (specimen) BLOOD SPECIMEN / Unknown Venipuncture / Unknown 05/01/2013 8:58 AM CDT 05/01/2013 9:05 AM CDT Shivani Fernandez MD LAB - HEMATOLOGY ORD ERABLES [facility] [address] [place] [address] documented in this encounter Visit Diagnoses Diagnosis Hypogammaglobulinemia (HCC) Hypogammaglobulinaemia, unspecified ITP (idiopathic thrombocytopenic purpura) (HCC) Immune thrombocytopenic purpura History of liver transplant (HCC) Liver replaced by transplant documented in this encounter Care Teams Machine Shop Apprentice Relationship Specialty Start Date End Date Vilma Spangler MD [address] [place] [id number] PCP - General 01/05/11 documented as of this encounter
--- OUTSIDE RECORDS SUMMARY | 2024-10-28 05:56 | XMS_ITS | Encounter Summary ---
Author Organization [facility] Address [address] [facility] [place] [address] Care Team Providers Care Construction Equipment Mechanic Helper Name Role Phone Vilma Spangler MD Primary Care Provider [phone] Reason for Visit * Reason Onset Date Comments Results 11/15/2012 Encounter Details Date Type Department Care Team (Late st Contact Info) Description 11/15/2012 Telephone [facility] at [address] [address] Sherry Rebolledo RN Results Social History Tobacco [...] Telephone Encounter - Sherry Rebolledo RN - 11/15/2012 2:24 PM CST Patient's mother called and stated she was concerned because the patient's surgery for splenectomy wasn't scheduled until 12/19/12. Notified Dr. Chavez who stated that date was ideal due to that he just received his vaccinations. Notified mother who stated that they had notified new petechiae. Informed Dr. Chavez who suggested to get labs drawn from outside hospital as soon as possible. Mother agreed to all instructions. ENTARY CLASSROOM TEACHER documented in this encounter Plan of Treatment Not on file documented as of this encounter Visit Diagnoses Not on filedocumented in this encounter Care Teams Construction Equipment Mechanic Helper Relationship Specialty Start Date End Date Vilma Spangler MD [address] [place] [address] PCP - General 01/05/11 documented as of this encounter
--- OUTSIDE RECORDS SUMMARY | 2024-10-28 05:56 | XMS_ITS | Encounter Summary ---
Author Organization [facility] [employer] Address [address] [address] Care Team Providers Care Home Health Rn Name Role Phone Vilma Spangler MD Primary Care Provider [phone] Reason for Visit * Reason Onset Date Comments Surgery Scheduling 12/20/2012 Surgery origi klaus scheduled for 12/19/12, but re-scheduled for 12/23/12. Laparoscopic, possible open, splenectomy [id number]. Scheduled as an AM Admit and a request for 5 day hospital stay made. Insurance Issue/question 12/20/2012 [employer] - Spoke wendie/John on 12/20/12 to update precertification information. Precert #[id number]; valid 12/23/12. Additional hospital stay must be submitted to [employer] by nursing personnel. Encounter Details Date Type Department Care Team (Late st Contact Info) Description 12/20/2012 Telephone [facility] Pediatrics - Surgery [address] [place] [id number] Gregory Fung MD [address] [place] [phone] Surgery Scheduling (Surgery originally scheduled for 12/19/12, but re-scheduled for 12/23/12. Laparoscopic, possible open, splenectomy [id number]. Scheduled as an AM Admit and a request for 5 day hospital stay made. ); Insurance Issue/question ([employer] - Spoke wendie/John on 12/20/12 to update precertification information. Precert #[id number]; valid 12/23/12. Additional hospital stay must be submitted to [employer] by nursing personnel. ) Social History Tobacco Use Types Packs/Day Years [...] * Telephone Encounter - Roselia Heath - 12/20/2012 11:53 AM CST Surgery initially scheduled for 12/19/12; however, had to re-scheduled to 12/23/12. Laparoscopic, possible open, splenectomy [id number] [facility] - This surgery was scheduled as an AM Admit with request for a 5 day hospital stay. However, initial precert was for one day only with additional days to be requested by nursing personnel. I spoke w/John at [facility] on 12/20/12 - Precert #[id number] - Valid for 12/20/12 with request for additional days to be submitted by nursing personnel w/appropriate clinical information. Confirmation #[id number] Roselia 12/20/12 [employer] documented in this encounter Plan of Treatment Not on file documented as of this encounter Visit Diagnoses Not on filedocumented in this encounter Care Teams Home Health Rn Relationship Specialty Start Date End Date Vilma Spangler MD [address] [address] PCP - General 01/05/11 documented as of this encounter
--- OUTSIDE RECORDS SUMMARY | 2024-10-28 05:57 | XMS_ITS | Encounter Summary ---
Author Organization [facility] Address [address] [facility] [place] [address] Care Team Providers Care Net Front End Developer Name Role Phone Vilma Spangler MD Primary Care Provider Encounter Details Date Type Department Care Team (Latest Contact Info) Description 11/10/2011 7:42 AM SOFTWARE APPLICATION TESTER - 11/10/2011 11:59 PM SOFTWARE APPLICATION TESTER Hospital Encounter [facility] at [address] [phone] Discharge Disposition: Home or Self Care Social [...] Sign Reading Time Taken Comments Blood Pressure 92/60 11/10/2011 3:00 PM SOFTWARE APPLICATION TESTER Pulse 74 11/10/2011 3:00 PM SOFTWARE APPLICATION TESTER Temperature 36 ??C (96.8 ??F) 11/10/2011 7:00 AM SOFTWARE APPLICATION TESTER Respiratory Rate 18 11/10/2011 3:00 PM SOFTWARE APPLICATION TESTER Oxygen Saturation 98% 11/10/2011 7:00 AM SOFTWARE APPLICATION TESTER Inhaled Oxygen Concentration - - Weight 52.7 kg (116 lb 2.9 oz) 11/10/2011 7:00 A M SOFTWARE APPLICATION TESTER Height 169.5 cm (5' 6.73 ) 11/10/2011 7:00 AM CS T Body Mass Index 18.34 11/10/2011 7:00 AM SOFTWARE APPLICATION TESTER Body Mass Index Percentile 3.60% 11/10/2011 7:0 0 AM SOFTWARE APPLICATION TESTER Growth Chart: CDC (Boys, 2-2 0 Years) documented in this encounter Medications at Time of Discharge Medication Sig Dispensed Refills Start Date End Date cefDINIR (OMNICEF) 300 MG capsule Take 300 mg by mouth 2 times daily. For 10 days. 12/10/2011 tacrolimus (PROGRAF) 1 MG capsule Take 1 mg by mouth 2 times daily. 03/14/2012 documented as of this encounter Progress Notes * Philip Chavez MD - 11/12/2011 9:15 AM CST Hematology/Oncology Progress Note 11/12/2011 Beka Nichols PCP: Vilma Spangler MD Diagnosis: Autoimmune Thrombocytopenia/Autoimmune Neutropenia Interval History: Beka is over 2 years out from Rituximab. Doing well. EBV PCR intermittently positive. Decreased energy/lethargy over the last few weeks. Some mild URI symptoms recently. No fevers. No pain. No Known Allergies Current Outpatient Prescriptions Medication Sig Dispense Refill ??? cefDINIR (OMNICEF) 300 MG capsule Take 300 mg by mouth 2 times daily. For 10 days. ??? tacrolimus (PROGRAF) 1 MG capsule Take 1 mg by mouth 2 times daily. Review of Systems: 1) General Fever: no Wt/appetite change: no Other:Very tired. 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 Behavior: no Other: no 11) Allergy/Immun no 12) Pain no 13) Nutritional Status good Past Medical History: unchanged Family Medical History: unchanged Social History: Living at home with parents, sibs. Physical Exam Constitutional: BP 92/60 Pulse 74 Temp 96.8 ??F Resp 18 Ht 1.695 m (5' 6.73 ) Wt 52.7 kg (116 lb 2.9 oz) BMI 18.34 kg/m2 SpO2 98% BSA (Calculated): 1.58 General Appearance: No acute distress. Tired Head: No nasal congestion or discharge. Skin: no rashes, bruises, or petechiae Eyes: anicteric: pupils equal, round, reactive to light; intact extra-ocular movements Mouth/throat: no sores, erythema, exudates, or mucosal pallor. Tonsils not enlarged. Neck: supple without masses Lymph nodes: no palpable lymphadenopathy Chest: lungs clear to auscultation Heart: normal S1 and S2, no murmur Abdomen: soft, non-tender, no masses or hepatosplenomegaly Genitalia: deferred Extremities: no focal swelling or tenderness; full ROM Neuro: nonfocal Lab and/or Imaging Studies Recent Results (from the past 72 hour(s)) CBC W AUTO DIFFERENTIAL Collection Time 11/10/11 8:50 AM Component Value Range WBC 5.85 4.5 - 11.0 (K/cumm) RBC 5.21 4.50 - 5.30 (mill/cumm) Hgb 16.7 (*) 13.0 - 16.0 (gm/dl) Hct 46.0 37.0 - 49.0 (%) MCV 88.3 78.0 - 98.0 (cu microns) MCH 32.1 25.0 - 35.0 (uug) MCHC 36.3 31.0 - 37.0 (%) RDW 12.[address] K/CUMM 217 100 - 400 (K/cumm) Gran 53.2 31 - 78 (%) Lymph 29.6 13 - 54 (%) Starke 14.4 (*) 4 - 13 (%) Eos 2.6 0 - 8 (%) Baso 0.2 0 - 1 (%) Manual Diff Comment Automated Diff Performed COMPREHENSIVE METABOLIC PANEL Collection Time 11/10/11 8:50 AM Component Value Range Sodium 144 137 - 145 (mmol/L) Potassium 4.5 3.5 - 5.1 (mmol/L) Chloride 105 98 - 107 (mmol/L) CO2 27.0 22 - 30 (mmol/L) Glucose 91 70 - 106 (mg/dl) BUN 11.0 8 - 21 (mg/dl) Calcium 8.7 (*) 8.9 - 10.7 (mg/dl) Bili Total 0.7 0.6 - 1.4 (mg/dl) Protein Total 6.6 6.3 - 8.6 (gm/dl) Albumin 4.2 3.7 - 5.6 (gm/dl) ALT/SGPT 30 10 - 40 (Units/L) AST/SGOT 31 10 - 45 (Units/L) Alk Phos 121 65 - 260 (Units/L) Creatinine .81 0.50 - 1.06 (mg/dl) IGG BLOOD Collection Time 11/10/11 8:50 AM Component Value Range IgG 565 (*) 639 - 1349 (mg/dl) JOSE-BAR VIRUS PCR QUANTITATIVE BLOOD Collection Time 11/10/11 8:50 AM Component Value Range EBV DNA Quant PCR NO EBV DNA detected (Copies/mL) Value: Positive for EBV DNA but below the level of accurate quantitation. EBV DNA Quant Value: Positive for EBV DNA but below the level of accurate quantitation. EBV PCR Comment Assessment 1. 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 Ultimately treated with Rituximab in late 2008. EBV PCR remains low positive.Counts remain normal. 2. Immune suppression: Patient on chronic tacrolimus for liver transplant. 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 IVIG on hold for last couple months. Now feeling run down and tired similar to how he has felt in the past. Regular infusion of IVIG has corrected these symptoms. IgG level low today. Plan 1. CBC, Liver functions 2. EBV PCR sent and low positivd 3. IVIG 500 mg/kg 4. T and B cell subsets not sent today. Send at next visit WARE APPLICATION TESTER * Dariela Ly RN - 11/10/2011 4:40 PM CST Report received from Charles Fletcher RN. 20 GMS IVIG infused and flushed without adverse reactions. Vital signs remained stable. Slept thru infusion. 1445 IVIG infused, no complaints stated PIV dc'd and discharged home ambulatory with mom. Will return to clinic i 4 weeks for visit and possible infusion. WARE APPLICATION TESTER * Sherry Fletcher RN - 11/10/2011 12:02 PM CST Beka arrived to clinic with mother for labs and possible IVIG infusion. Triaged and assessed by RN. 24g PIV placed in L AC with 1 attempt, labs obtained. Patient seen by Tanisha Chavez MD, and decision made to administer IVIIG without regard to IgG level with has not yet been reported out. Patient elpidio edicated with PO Tylenol and Benadryl. Nursing report given to Dariela Winston RN who will administerIVIG. WARE APPLICATION TESTER documented in this encounter Miscellaneous Notes * Miscellaneous Scans - Document, Scanned - 11/30/2011 8:42 AM CST WARE APPLICATION TESTER documented in this encounter Plan of Treatment Not on file documented as of this encounter Procedures Procedure Name Priority Date/Time Associated Diagnosis Comments JOSE-DE LA CRUZ VIRUS PCR QUANT BLOOD/CSF Routine 11/10/2011 8:50 AM SOFTWARE APPLICATION TESTER Neutropenia associated with autoimmune disease (HCC) CBC W AUTO DIFFERENTIAL Timed 11/10/2011 8:50 AM SOFTWARE APPLICATION TESTER Neutropenia associated with autoimmune disease (HCC) COMPREHENSIVE METABOLIC PANEL Timed 11/10/2011 8:50 AM SOFTWARE APPLICATION TESTER Neutropenia associated with autoimmune disease (HCC) IGG BLOOD Timed 11/10/2011 8:50 AM SOFTWARE APPLICATION TESTER Hypogammaglobuline justine (HCC) documented in this encounter Results * JOSE-BAR VIRUS PCR QUANTITATIVE BLOOD (11/10/2011 8:50 AM SOFTWARE APPLICATION TESTER) Jose-De La Cruz Virus DNA PCR Quantitative Positive for EBV DNA but below the level of accurate quantitatio n. NO EBV DNA detected Copies/mL [facility] Jose-De La Cruz Virus DNA Quantitative log copy Positive for EBV DNA but below the level of accurate quantitatio n. log 10 copies/mL [facility] Comment EBV PCR [facility] Comment: This assay has a [...] ??EBV levels can vary by speimen type: [facility] uses whole blood which is more [...] characteristics determined by the [facility]. ??It has not been cleared or approved [...] to perform high complexity clinical laboratory testing. BLOOD SPECIMEN / Unknown 11/10/2011 8:50 AM SOFTWARE APPLICATION TESTER 11/10/2011 9:04 AM SOFTWARE APPLICATION TESTER Philip Chavez MD LAB - MICROBIOLOG Y ORDERABLES [facility] [address] [place] [address] * (ABNORMAL) IGG BLOOD (11/10/2011 8:50 AM SOFTWARE APPLICATION TESTER) IgG 565(L) 639 - 1349 mg/dl [facility] Blood specimen (specimen) BLOOD SPECIMEN / Unknown 11/10/2011 8:50 AM SOFTWARE APPLICATION TESTER 11/10/2011 9:04 AM SOFTWARE APPLICATION TESTER Philip Chavez MD LAB - CHEMISTRY O RDERABLES Performing Organization Address [facility] de Phone Number [facility] [address] [place] [phone] * (ABNORMAL) COMPREHENSIVE METABOLIC PANEL (11/10/2011 8:50 AM SOFTWARE APPLICATION TESTER) Pathologist [facility] Sodium 144 137 - 145 mmol/L [facility] Potassium 4.5 3.5 - 5.1 mmol/L [facility] Chloride 105 98 - 107 mmol/L [facility] CO2 27.0 22 - 30 mmol/L [facility] Glucose 91 70 - 106 mg/dl [facility] BUN 11.0 8 - 21 mg/dl [facility] Calcium 8.7(L) 8.9 - 10.7 mg/dl [facility] Bilirubin Total 0.7 0.6 - 1.4 mg/dl [facility] Protein Total 6.6 6.3 - 8.6 gm/dl [facility] Albumin 4.2 3.7 - 5.6 gm/dl [facility] ALT 30 10 - 40 Units/L [facility] AST 31 10 - 45 Units/L [facility] Alkaline Phosphatase 121 65 - 260 Units/L [facility] Creatinine .81 0.50 - 1.06 mg/dl [facility] Blood specimen (specimen) BLOOD SPECIMEN / Unknown 11/10/2011 8:50 AM SOFTWARE APPLICATION TESTER 11/10/2011 9:04 AM SOFTWARE APPLICATION TESTER Philip Chavez MD LAB - CHEMISTRY O RDERABLES Performing Organization Address [facility] Co de Phone Number [facility] [address] [place] [phone] * (ABNORMAL) CBC W AUTO DIFFERENTIAL (11/10/2011 8:50 AM SOFTWARE APPLICATION TESTER) Pathologist [facility] WBC 5.85 4.5 - 11.0 K/cumm [facility] RBC 5.21 4.50 - 5.30 mill/cumm [facility] Hemoglobin 16.7(H) 13.0 - 16.0 gm/dl [facility] Hematocrit 46.0 37.0 - 49.0 % [facility] MCV 88.3 78.0 - 98.0 cu microns [facility] MCH 32.1 25.0 - 35.0 uug [facility] MCHC 36.3 31.0 - 37.0 % [facility] RDW 12.4 % [facility] MPV 9.8 fl [facility] Platelet Count 217 100 - 400 K/cumm [facility] Granulocytes % 53.2 31 - 78 % [facility] Lymphocytes % 29.6 13 - 54 % [facility] Monocytes % 14.4(H) 4 - 13 % [facility] Eosinophils % 2.6 0 - 8 % [facility] Basophils % 0.2 0 - 1 % [facility] Comment Manual Diff Automated Diff Performed [facility] Blood specimen (specimen) BLOOD SPECIMEN / Unknown 11/10/2011 8:50 AM SOFTWARE APPLICATION TESTER 11/10/2011 9:04 AM SOFTWARE APPLICATION TESTER Philip Chavez MD LAB - HEMATOLOGY ORDERABLES Performing Organization Address City/State/[facility] Co de Phone Number [facility] [address] [place] [address] documented in this encounter Visit Diagnoses Diagnosis Hypogammaglobulinemia (HCC) Hypogammaglobulinaemia, unspecified Neutropenia associated with autoimmune disease (HCC) Other neutropenia documented in this encounter Administered Medications Inactive Administered Medications - up to 3 most recent administrations Medication Order MAR Action Action Date Dose Rate Site acetaminophen (TYLENOL) tablet 325 mg 325 mg, Oral, ONCE, 1 dose, On Wed11/10/11 at 1200, Maximum allowable Acetaminophen amount = 4 Grams (4000 mg) / 24 hours. $ Given 11/10/2011 11:12 AM SOFTWARE APPLICATION TESTER 325 mg diphenhydrAMINE (BENADRYL) tablet 25 mg 25 mg, Oral, ONCE, 1 dose, On Wed11/10/11 at 1200 $ Given 11/10/2011 11:12 AM SOFTWARE APPLICATION TESTER 25 mg immune globulin (human) (GAMMAGARD) 10 % infusion 20 g 20 g, Intravenous, ONCE, 1 dose, On Wed11/10/11 at 1200, GAMMAGARD has been ordered. Is this correct? If 'No', exit this order and choose GAMUNEX-C. Yes $ Given 11/10/2011 12:05 PM SOFTWARE APPLICATION TESTER 20 g documented in this encounter Care Teams Net Front End Developer Relationship Specialty Start Date End Date Vilma Spangler MD [address] [facility] [address] [place] [address] PCP - General 01/05/11 documented as of this encounter
--- OUTSIDE RECORDS SUMMARY | 2024-10-28 05:57 | XMS_ITS | Encounter Summary ---
Author Organization [facility] Address [address] [place] [address] Care Team Providers Care Surgical Scrub Technician Name Role Phone Vilma Spagnler MD Primary Care Provider Encounter Details Date Type Department Care Team (Latest Contact Info) Description 09/27/2012 11:00 AM FILM SPLICER - 09/27/2012 11:59 PM FILM SPLICER Hospital Encounter The [facility] at [address] [phone] Jason Fischer MD [address] [place] [phone] Discharge Disposition: Home or Self Care Social [...] Sign Reading Time Taken Comments Blood Pressure 102/52 09/27/2012 11:27 AM FILM SPLICER Pulse 62 09/27/2012 11:27 AM FILM SPLICER Temperature 35.7 ??C (96.3 ??F) 09/27/2012 11:[address] Respiratory Rate 20 09/27/2012 11:27 AM FILM SPLICER Oxygen Saturation 100% 09/27/2012 11:28 AM FILM SPLICER Inhaled Oxygen Concentration - - Weight 54.8 kg (120 lb 13 oz) 09/27/2012 11:27 A M FILM SPLICER Height 169.4 cm (5' 6.69 ) 09/27/2012 11:[address] Body Mass Index 19.1 09/27/2012 11:27 AM FILM SPLICER documented in this encounter Discharge Instructions * Patient Instructions* Ileana Castillo RN - 09/27/2012 12:43 PM FILM SPLICER Discharge Instructions for: Beka Nichols No discharge procedures on file. The following belonging have been returned to you If your child has any worsening of his or her condition, please call your primary care doctor (or their exchange if after hours) or return to the ED if your primary care doctor cannot be reached. 09/27/2012 SPLICER * Discharge Instructions* Document, Scanned - 09/27/2012 8:36 PM FILM SPLICER SPLICER documented in this encounter Medications at Time of Discharge Medication Sig Dispensed Refills Start Date End Date oxycodone-acetaminophen (PERCOCET) 5-325 MG tablet Take 1 Tab by mouth every 4 hours as needed for Pain. 28 Tab 0 03/24/2012 10/27/2012 tacrolimus (PROGRAF) 1 MG capsule Take 1 Cap by mouth 2 times daily. 60 Cap 6 03/14/2012 12/28/2012 documented as of this encounter Progress Notes * Jason Fischer MD - 09/27/2012 6:35 PM CST Hematology/Oncology Progress/Admission Note 09/27/2012 Beka Nichols PCP: Vilma Spangler Diagnosis: Autoimmune Thrombocytopenia/Autoimmune Neutropenia Liver Transplant at 4yo Lymphadenopathy No Known Allergies Current Outpatient Prescriptions on File Prior to Encounter Medication Sig Dispense Refill ??? tacrolimus (PROGRAF) 1 MG capsule Take 1 Cap by mouth 2 times daily. 60 Cap 6 ??? oxycodone-acetaminophen (PERCOCET) 5-325 MG tablet Take 1 Tab by mouth every 4 hours as needed for Pain. 28 Tab 0 Interval History Received IVIG x 2 last week, tolerated well. No fevers, no headaches, no petechiae/bruising/bleeding. Injury to left hand healing; some discomfort right knee (secondary to minor injury at work), but generally feeling well Past Medical History: unchanged Family Medical History: unchanged Social History: unchanged Review of Systems: 1) General: Fever: no Wt/appetite change: no Other:no 2) Heme: Bruising: no Other:no 3) Skin: Rash: no Other: no 4) ENT: Congestion:no Rhinorrhea: no Epistaxis: no Sore Throat: no Change in Hearing: N/A Earache: no Stomatitis: no 5) Resp/CV: Shortness of Breath: no Chest Pain: no Cough:no Palpitation: N/A Other: no 6) GI: Pain: no Jaundice: no Nausea: no Vomiting: no Diarrhea: no Constipation: no Other: no 7) : Frequency: N/A Dysuria: N/A Menorrhagia/Dysmenorrhea: N/A Hematuria: no Other: no 8) Musculo-skeletal: Pain: no Swelling/Edema: no Change in ROM: no Cyanosis: N/A Other: no 9) Neuro: Headache: no Weakness: no Neuralgia: N/A Vertigo: N/A Seizure: N/A Other: no 10) Psych: Behavior: no Other: no 11) Allergy/Immun: no 12) Pain: no 13) Nutritional Status: good Physical Exam Constitutional: BP 102/52 Pulse 62 Temp 96.3 ??F Resp 20 Ht 1.694 m (5' 6.69 ) Wt 54.8 kg (120 lb 13 oz) BMI 19.10 kg/m2 SpO2 100% BSA (Calculated): 1.61 General Appearance: W/D, W/N, no acute distress Head: No nasal congestion or discharge Skin: no rashes, bruises, or petechiae, small scab left hand Ears: tympanic membranes normal Eyes: anicteric: pupils equal, round, reactive to light; intact extra-ocular movements. Mouth/throat: no sores, erythema, exudates, or mucosal pallor. Tonsils not enlarged. Neck: supple without masses Lymph nodes: no palpable lymphadenopathy Chest: lungs clear to auscultation Heart: normal S1 and S2, no murmur Back: no spinous or CVA tenderness Abdomen: soft, non-tender, no masses or hepatosplenomegaly Extremities: no focal swelling or tenderness; full ROM Neuro: Cranial nerves: intact Strength: grossly normal DTR: 2+, symmetric Lab and/or Imaging Studies Recent Results (from the past 24 hour(s)) DIFFERENTIAL MANUAL Collection Time 09/27/12 11:50 AM Component Value Range WBC Auto 6.7 4.4-10.7 X(10)9/L Neutro Manual 73 44-73 % Lymph Manual 20 20-43 % Coke Manual 6 5-13 % Atyp Lymph Manual 1 (*) <=0 % Cells Counted 100 Plt Est Decreased WBC Morph Normal Anisocytosis Slight Poikilocytosis Slight IGG BLOOD Collection Time 09/27/12 11:50 AM Component Value Range IgG 5107 657-4868 mg/dL JOSE-BAR VIRUS PCR QUANTITATIVE BLOOD Collection Time 09/27/12 11:50 AM Component Value Range EBV DNA Quant PCR (*) No EBV DNA detected Value: POSITIVE for EBV DNA but below level of accurate quantitation CBC W AUTO DIFFERENTIAL Collection Time 09/27/12 11:50 AM Component Value Range WBC 6.7 4.4-10.7 x10^9/L RBC 5.09 3.80-5.40 x10^12/L Hgb 16.3 12.0-17.6 g/dL HCT 44.6 35.2-51.7 % MCV 87.6 80.7-98.3 fl MCH 32.0 26.7-34.0 pg MCHC 36.5 (*) 30.8-35.9 gm/dL RDW-CV 12.9 12.1-14.9 % MPV 11.7 9.4-12.9 fl Neutro 65 44-73 % Lymph 20 20-43 % Coke 12 5-13 % Eos 3 0-6 % Baso 0 0-2 % Immature Grans 0.3 0-1 % Neutro Abs 4.34 2.01-7.14 x10^9/L Lymph Abs 1.31 1.07-3.94 x10^9/L Coke Abs 0.83 0.26-1.07 x10^9/L Eosin Abs 0.19 0-0.47 x10^9/L Baso Abs 0.01 0-0.08 x10^9/L Immature Grans Abs 0.02 0.00-0.06 x10^9/L Hemo Reflex Status Manual Diff to follow (none) Plt Ct 79 (*) 153-416 x10^9/L COMPREHENSIVE METABOLIC PANEL Collection Time 09/27/12 11:50 AM Component Value Range Glucose 110 (*) 70-105 mg/dL Sodium 140 136-145 mmol/L Potassium 3.8 3.5-5.1 mmol/L Chloride 108 (*) 98-107 mmol/L CO2 22 22-29 mmol/L Calcium 8.98 (*) 9.08-10.48 mg/dL Anion Gap 10 5-20 mmol/L BUN 8.8 5.3-18.7 mg/dL Creatinine 0.85 0.61-1.07 mg/dL eGFR by MDRD >60 >60 ml/min/1.73m2 eGFR by MDRD AFR AMER >60 >60 ml/min/1.73m2 Alk Phos 127 39-139 U/L ALT/SGPT 61 (*) 6-46 U/L AST/SGOT 49 (*) 8-42 U/L Protein Total 7.5 6.3-8.2 gm/dL Albumin 4.2 3.3-4.9 gm/dL Bili Total 0.3 0.3-1.2 mg/dL Procedures None Assessment 17 y.o. male with recent exacerbation of autoimmune thrombocytopenia Good increase in platelet count post-IVIG Plan/Follow-Up Recheck cbc in 2 weeks unless new bleeding manifestations occur. SPLICER * Ileana Castillo RN - 09/27/2012 5:38 PM CST Patient came to clinic for scheduled visit with Dr. Fischer and labs, accompanied by his mother. Patient was triaged and assessed by Coleen Menendez RN, in addition 22G PIV placed in patient's left AC by RN and labs obtained. RN flushed PIV and confirmed blood return. This RN reviewed medications with mother and patient, in addition to arrival screening. Patient addressed no complaints. Upon labs resulting, MD notified regarding counts. MD stated patient will be discharged and will return to clinic in two weeks for labs and scheduled visit. This RN d/c'd patient's PIV and discharged him home, ambulatory with mother. Pt confirmed all questions have been answered. SPLICER documented in this encounter Miscellaneous Notes * Miscellaneous Scans - Document, Scanned - 11/10/2012 11:28 AM CST SPLICER documented in this encounter Plan of Treatment Not on file documented as of this encounter Procedures Procedure Name Priority Date/Time Associated Diagnosis Comments JOSE-DE LA CRUZ VIRUS PCR QUANT BLOOD/CSF ZAHRA 09/27/2012 11:50 AM FILM SPLICER Hypogammaglobuline justine (HCC) CBC W AUTO DIFFERENTIAL STAT 09/27/2012 11:50 AM FILM SPLICER Hypogammaglobuline justine (HCC) COMPREHENSIVE METABOLIC PANEL STAT 09/27/2012 11:50 AM FILM SPLICER Neutropenia associated with autoimmune disease (HCC) IGG BLOOD STAT 09/27/2012 11:50 AM FILM SPLICER Hypogammaglobuline justine (HCC) DIFFERENTIAL MANUAL Routine 09/27/2012 1 1:50 AM FILM SPLICER Hypogammaglobuline justine (HCC) documented in this encounter Results * (ABNORMAL) COMPREHENSIVE METABOLIC PANEL (09/27/2012 11:50 AM FILM SPLICER) Glucose 110(H) 70 - 105 mg/dL 09/27/2012 12:28 PM [facility] Sodium 140 136 - 145 mmol/L 09/27/2012 12:28 PM [facility] Potassium 3.8 3.5 - 5.1 mmol/L 09/27/2012 12:28 PM [facility] Chloride 108(H) 98 - 107 mmol/L 09/27/2012 12:28 PM [facility] CO2 22 22 - 29 mmol/L 09/27/2012 12:28 PM [facility] Calcium 8.98(L) 9.08 - 10.48 mg/dL 09/27/2012 12:28 PM [facility] Anion Gap 10 5 - 20 mmol/L 09/27/2012 12:28 PM [facility] BUN 8.8 5.3 - 18.7 mg/dL 09/27/2012 12:28 PM [facility] Creatinine 0.85 0.61 - 1.07 mg/dL 09/27/2012 12:28 PM [facility] eGFR by MDRD >60 >60 ml/min/1.7 3m2 09/27/2012 12:28 PM [facility] eGFR by MDRD >60 >60 ml/min/1.7 3m2 09/27/2012 12:28 PM [facility] Alkaline Phosphatase 127 39 - 139 U/L 09/27/2012 12:28 PM [facility] ALT 61(H) 6 - 46 U/L 09/27/2012 12:28 PM [facility] AST 49(H) 8 - 42 U/L 09/27/2012 12:28 PM [facility] Protein Total 7.5 6.3 - 8.2 gm/dL 09/27/2012 12:28 PM [facility] Albumin 4.2 3.3 - 4.9 gm/dL 09/27/2012 12:28 PM [facility] Bilirubin Total 0.3 0.3 - 1.2 mg/dL 09/27/2012 12:28 PM [facility] Blood specimen (specimen) BLOOD SPECIMEN / Unknown 09/27/2012 11:50 AM [facility] 09/27/2012 11:54 AM [facility] Jason Fischer MD LAB - CHEMISTRY OR DERABLES Performing Organization Address City/State/[facility] Co de Phone Number [facility] [address] [place] [address] * (ABNORMAL) CBC W AUTO DIFFERENTIAL (09/27/2012 11:50 AM [facility]) WBC 6.7 4.4 - 10.7 x10^9/L 09/27/2012 12:09 PM [facility] RBC 5.09 3.80 - 5.40 x10^12/L 09/27/2012 12:09 PM [facility] Hemoglobin 16.3 12.0 - 17.6 g/dL 09/27/2012 12:09 PM [facility] Hematocrit 44.6 35.2 - 51.7 % 09/27/2012 12:09 PM [facility] MCV 87.6 80.7 - 98.3 fl 09/27/2012 12:09 PM [facility] MCH 32.0 26.7 - 34.0 pg 09/27/2012 12:09 PM [facility] MCHC 36.5(H) 30.8 - 35.9 gm/dL 09/27/2012 12:09 PM [facility] RDW-CV 12.9 12.1 - 14.9 % 09/27/2012 12:09 PM [facility] MPV 11.7 9.4 - 12.9 fl 09/27/2012 12:09 PM [facility] Neutrophils % 65 44 - 73 % 09/27/2012 12:09 PM [facility] Lymphocytes % 20 20 - 43 % 09/27/2012 12:09 PM [facility] Monocytes % 12 5 - 13 % 09/27/2012 12:09 PM [facility] Eosinophils % 3 0 - 6 % 09/27/2012 12:09 PM [facility] Basophils % 0 0 - 2 % 09/27/2012 12:09 PM [facility] Immature Granulocytes 0.3 0 - 1 % 09/27/2012 12:09 PM [facility] Neutrophil Absolute 4.34 2.01 - 7.14 x10^9/L 09/27/2012 12:09 PM [facility] Lymphocytes Absolute 1.31 1.07 - 3.94 x10^9/L 09/27/2012 12:09 PM [facility] Monocytes Absolute 0.83 0.26 - 1.07 x10^9/L 09/27/2012 12:09 PM [facility] Eosinophils Absolute 0.19 0 - 0.47 x10^9/L 09/27/2012 12:09 PM [facility] Basophils Absolute 0.01 0 - 0.08 x10^9/L 09/27/2012 12:09 PM [facility] Immature Granulocytes Absolute 0.02 0.00 - 0.06 x10^9/L 09/27/2012 12:09 PM [facility] Hematology Reflex Status Manual Diff to follow (none) 09/27/2012 12:09 PM [facility] Platelet Count 79(L) 153 - 416 x10^9/L 09/27/2012 12:09 PM [facility] Blood specimen (specimen) BLOOD SPECIMEN / Unknown 09/27/2012 11:50 AM FILM SPLICER 09/27/2012 11:54 AM FILM SPLICER Jason Fischer MD LAB - HEMATOLOGY O RDERAVERN [facility] [address] [facility] [place] [address] * (ABNORMAL) JOSE-BAR VIRUS PCR QUANTITATIVE BLOOD (09/27/2012 11:50 AM FILM SPLICER) Jose-De La Cruz Virus DNA PCR Quantitative POSITIVE for EBV DNA but below level of accurate quantitatio n(A) No EBV DNA detected 09/28/2012 7:20 AM FILM SPLICER [facility] Blood specimen (specimen) BLOOD SPECIMEN / Unknown 09/27/2012 11:50 AM FILM SPLICER 09/27/2012 11:54 AM FILM SPLICER Narrative [facility] - 09/28/2012 7:20 AM FILM SPLICER This assay has a lower limit of [...] ??EBV levels can vary by ??specimen type: [facility] uses whole blood which is more sensitive than plasma for detection of EBV DNA. ??Also, the lack of a universal quantitative standard contributes to interlaboratory variability. Therefore, caution should be exercised when attempting to compare results obtained from different laboratories. It is recommended that for tracking relative changes in EBV DNA levels in particular patient, the same laboratory should test the specimen. Jason Fischer MD LAB - MICROBIOLOGY ORDERABLES Performing Organization Address [facility] de Phone Number [facility] [address] [place] [address] * IGG BLOOD (09/27/2012 11:50 AM FILM SPLICER) Pathologist [facility] IgG 1,622 540 - 1,822 mg/dL 09/27/2012 12:32 PM [facility] Blood specimen (specimen) BLOOD SPECIMEN / Unknown 09/27/2012 11:50 AM FILM SPLICER 09/27/2012 11:53 AM FILM SPLICER Jason Fischer MD LAB - CHEMISTRY OR DERABLES Performing Organization Address [facility] de Phone Number [facility] [address] [place] [address] * (ABNORMAL) DIFFERENTIAL MANUAL (09/27/2012 11:50 AM FILM SPLICER) Pathologist [facility] WBC Auto 6.7 4.4 - 10.7 X(10)9/L 09/27/2012 1:17 PM [facility] Neutrophil % Manual 73 44 - 73 % 09/27/2012 1:17 PM [facility] Lymphocytes % Manual 20 20 - 43 % 09/27/2012 1:17 PM [facility] Monocytes % Manual 6 5 - 13 % 2011 1:17 PM [facility] Atypical Lymphocyte % Manual 1(H) <=0 % 09/27/2012 1:17 PM [facility] Cells Counted 100 # cells 09/27/2012 1:17 PM [facility] Platelet Estimation Decreased 09/27/2012 1:17 PM [facility] WBC Morph Normal 09/27/2012 1:17 PM [facility] Anisocytosis Slight 09/27/2012 1:17 PM [facility] Poikilocytosis Slight 09/27/2012 1:17 PM [facility] Blood specimen (specimen) BLOOD SPECIMEN / Unknown 09/27/2012 11:50 AM FILM SPLICER 09/27/2012 11:54 AM FILM SPLICER Jason Fischer MD LAB - HEMATOLOGY O RDERABLES Performing Organization Address [facility] Co de Phone Number [facility] [address] [place] [phone] documented in this encounter Visit Diagnoses Diagnosis Hypogammaglobulinemia (HCC) Hypogammaglobulinaemia, unspecified Neutropenia associated with autoimmune disease (HCC) Other neutropenia History of liver transplant (HCC) Liver replaced by transplant documented in this encounter Care Teams Surgical Scrub Technician Relationship Specialty Start Date End Date Vilma Spangler MD [facility] [place] [address] PCP - General 01/05/11 documented as of this encounter
--- OUTSIDE RECORDS SUMMARY | 2024-10-28 05:57 | XMS_ITS | Encounter Summary ---
Author Organization [facility] Address [address] [place] [address] Care Team Providers Care Smooth And Burr Worker Composites Name Role Phone Vilma Spangler MD Primary Care Provider Encounter Details Date Type Department Care Team (Latest Contact Info) Description 06/24/2011 7:44 AM CDT - 06/24/2011 11:59 PM CDT Hospital Encounter The [facility] at [address] [address] Cindi Malloy MD [address] [place] [phone] Discharge Disposition: Home or Self Care Social [...] Sign Reading Time Taken Comments Blood Pressure 100/72 06/24/2011 7:00 AM CDT Pulse 64 06/24/2011 7:00 AM CDT Temperature 36 ??C (96.8 ??F) 06/24/2011 7:00 AM CDT Respiratory Rate 20 06/24/2011 7:00 AM CDT Oxygen Saturation 98% 06/24/2011 7:00 AM CDT Inhaled Oxygen Concentration - - Weight 52.9 kg (116 lb 10 oz) 06/24/2011 7:00 AM CDT Height 169.5 cm (5' 6.73 ) 06/24/2011 7:00 AM CD T Body Mass Index 18.41 06/24/2011 7:00 AM CDT Body Mass Index Percentile 4.93% 06/24/2011 7:0 0 AM CDT Growth Chart: [facility] (Boys, 2-2 0 Years) documented in this encounter Medications at Time of Discharge Medication Sig Dispensed Refills Start Date End Date tacrolimus (PROGRAF) 1 MG capsule Take 1 mg by mouth 2 times daily. 03/14/2012 documented as of this encounter Progress Notes * Dariela Ly RN - 06/24/2011 4:15 PM CDT Arrived in clinic for scheduled infusion. Assessed and triaged per RN. #24 gauge needle placed in left AC, labs drawn and sent. Tylenol and Benedryl given po for premeds. 25 GMS IVIG infused per protocol with no signs of adverse reactions. Vital signs stable during infusion. Seen by Dr. Chavez. PIV dc'd and discharged home ambulatory with family. Will return to clinic in 4 weeks for visit and infusion. documented in this encounter Miscellaneous Notes * Miscellaneous Scans - Document, Scanned - 09/28/2011 8:17 AM CST IFIER * Miscellaneous Scans - Document, Scanned - 08/19/2011 9:20 PM CDT documented in this encounter Plan of Treatment Not on file documented as of this encounter Procedures Procedure Name Priority Date/Time Associated Diagnosis Comments JOSE-DE LA CRUZ VIRUS PCR QUANT BLOOD/CSF Routine 06/24/2011 9:00 AM CDT Neutropenia associated with autoimmune disease (HCC) DIFFERENTIAL MANUAL Timed 06/24/2011 9 :00 AM CDT CBC W AUTO DIFFERENTIAL Timed 06/24/2011 9:00 AM CDT Hypogammaglobulinem ia (HCC) IGG BLOOD Timed 06/24/2011 9:00 AM CDT Hypogammaglobulinem ia (HCC) documented in this encounter Results * (ABNORMAL) DIFFERENTIAL MANUAL (06/24/2011 9:00 AM CDT) Comment Manual Diff Done [facility] Band % Manual 1 % [facility] Neutrophils % Manual 68 31 - 78 % [facility] Lymphocytes % Manual 12(L) 13 - 54 % [facility] Monocytes % Manual 10 4 - 13 % [facility] Eosinophils % Manual 3 0 - 8 % [facility] Atypical Lymphocyte % Manual 6 % [facility] RBC Morphology Some Anisocytosis, Some Poikylocytosis , Few Macrocytes, Few Microcytes [facility] BLOOD SPECIMEN / Unknown 06/24/2011 9:00 AM CDT 06/24/2011 9:51 AM CDT Shivani Fernandez MD LAB - HEMATOLOGY ORD ERABLES Performing Organization Address City/State/[facility] Co de Phone Number [facility] [address] [place] [address] * JOSE-BAR VIRUS PCR QUANTITATIVE BLOOD (06/24/2011 9:00 AM CDT) Pathologist [facility] Jose-De La Cruz Virus DNA PCR Quantitative NO EBV DNA detected NO EBV DNA detected Copies/mL [facility] Comment EBV PCR [facility] Comment: This assay has [...] ??EBV levels can vary by speimen type: [facility] uses whole blood which is more [...] clinical laboratory testing. BLOOD SPECIMEN / Unknown 06/24/2011 9:00 AM CDT 06/24/2011 9:29 AM CDT Philip Chavez MD LAB - MICROBIOLOG Y ORDERABLES Performing Organization Address City/State/[facility] Co de Phone Number [facility] [address] [place] [address] * (ABNORMAL) CBC W AUTO DIFFERENTIAL (06/24/2011 9:00 AM CDT) WBC 8.17 4.5 - 11.0 K/cumm [facility] RBC 5.30 4.50 - 5.30 mill/cumm [facility] Hemoglobin 17.1(H) 13.0 - 16.0 gm/dl [facility] Hematocrit 46.9 37.0 - 49.0 % [facility] MCV 88.5 78.0 - 98.0 cu microns [facility] MCH 32.3 25.0 - 35.0 uug [facility] MCHC 36.5 31.0 - 37.0 % [facility] RDW 12.7 % [facility] MPV 11.1 fl [facility] Platelet Count 211 100 - 400 K/cumm [facility] Comment Manual Diff Done [facility] BLOOD SPECIMEN / Unknown 06/24/2011 9:00 AM CDT 06/24/2011 9:29 AM CDT Philip Chavez MD LAB - HEMATOLOGY ORDERABLES Performing Organization Address City/[facility]/ZIP Co de Phone Number [facility] [place] [address] * IGG BLOOD (06/24/2011 9:00 AM CDT) IgG 715 639 - 1349 mg/dl [facility] BLOOD SPECIMEN / Unknown 06/24/2011 9:00 AM CDT 06/24/2011 9:29 AM CDT Philip Chavez MD LAB - CHEMISTRY O RDERABLES Performing Organization Address [facility] Co de Phone Number [facility] [address] [place] [phone] documented in this encounter Visit Diagnoses Diagnosis Hypogammaglobulinemia (HCC) Hypogammaglobulinaemia, unspecified Neutropenia associated with autoimmune disease (HCC) Other neutropenia documented in this encounter Administered Medications Inactive Administered Medications - up to 3 most recent administrations Medication Order MAR Action Action Date Dose Rate Site acetaminophen (TYLENOL) tablet 325 mg 325 mg, Oral, ONCE, 1 dose, On Wed06/24/11 at 0845, Maximum allowable Acetaminophen amount = 4 Grams (4000 mg) / 24 hours. $ Given 06/24/2011 9:00 AM CDT 325 mg diphenhydrAMINE (BENADRYL) tablet 50 mg 50 mg, Oral, ONCE, 1 dose, On Wed06/24/11 at 0845 $ Given 06/24/2011 9:00 AM CDT 50 mg immune globulin (human) (GAMMAGARD;GAMUNEX;PRIVIGEN) 10% infusion 25 g 25 g, Intravenous, ONCE, 1 dose, On Wed06/24/11 at 0930 $ Given 06/24/2011 9:10 AM CDT 25 g documented in this encounter Care Teams Smooth And Burr Worker Composites Relationship Specialty Start Date End Date Vilma Spangler MD [address] [place] [address] PCP - General 01/05/11 documented as of this encounter
--- OUTSIDE RECORDS SUMMARY | 2024-10-28 05:57 | XMS_ITS | Encounter Summary ---
Author Organization [facility] Address [address] [place] [address] Care Team Providers Care Head Wrestling Coach Name Role Phone Vilma Spangler MD Primary Care Provider [phone] Reason for Visit * (Routine) - Closed Specialty Diagnoses / Procedures Referred By Sascha rey Referred To Contact Hematology and Oncology / Oncology-Medical [facility] [address] [place] [phone] Shivani Cheney MD [address] [place] [id number] Referral ID Status Reason Start Date Expiration Date Visits Re quested Visits Authorized [id number] Closed 05/18/2012 11/14/2012 1 1 Encounter Details Date Type Department Care Team (Latest Contact Info) Description 05/18/2012 8:34 AM CDT - 05/18/2012 11:59 PM CDT Hospital Encounter [facility] at [address] [address] Shivani Cheney MD [address] [place] [id number] Discharge Disposition: Home or Self Care Social [...] Sign Reading Time Taken Comments Blood Pressure 92/58 05/18/2012 12:14 PM CDT Pulse 64 05/18/2012 12:14 PM CDT Temperature 36.6 ??C (97.8 ??F) 05/18/2012 12:14 PM C DT Respiratory Rate 18 05/18/2012 12:14 PM CDT Oxygen Saturation 98% 05/18/2012 8:00 AM CDT Inhaled Oxygen Concentration - - Weight 54.7 kg (120 lb 9.5 oz) 05/18/2012 8:00 A M CDT Height 169.1 cm (5' 6.58 ) 05/18/2012 8:00 AM CD T Body Mass Index 19.13 05/18/2012 8:00 AM CDT documented in this encounter Discharge Instructions * Patient Instructions* Ileana Castillo RN - 05/18/2012 12:16 PM CDT Discharge Instructions for: Beka Ben Nichols No discharge procedures on file. The following belonging have been returned to you If your child has any worsening of his or her condition, please call your primary care doctor (or their exchange if after hours) or return to the ED if your primary care doctor cannot be reached. 05/18/2012 * Discharge Instructions* Document, Scanned - 05/18/2012 8:11 PM CDT documented in this encounter Medications [...] Progress Notes * Ileana Castillo RN - 05/18/2012 4:04 PM CDT This RN assumed care from SHAILESH Fry. Patient stated he had no complaints or concerns. He was premedicated with Tylenol and Benadryl by this RN per standard order set protocol. Patient's mother accompanied him throughout the infusion, and home after discharge. The patient tolerated his IVIG infusion well, and had no adverse reactions or side effects. Patient's vital signs were monitored per protocol and the standard weight-based order set was followed by this RN for increases every 15-minutes until reaching the maximum dose for the remainder of the infusion. The patient was seen by Dr. Cameron, and the follow up was determined and placed on their discharge orders. This RN went over discharge orders with the adult patient and he signed for them. All questions were answered. The patient was discharged home ambulatory with his mother and will be back for his next IVIG infusion and visit follow-up per orders. * Lisandra Simmons RN - 05/18/2012 10:59 AM CDT Patient in clinic for scheduled visit and ivig infusion. Patient triaged and assessed by RN. No problems or complaints reported to this RN at present time. #22 IV started to right forearm without difficulty, flushes easily with ns and blood return noted. Blood obtained from line and sent to lab. Patient seen by dr. cheney and report given to SHAILESH kim who will continue patient care. * Nish Cameron MD - 05/18/2012 9:41 AM CDT Beka has had no interval problems. No return of cellulitis or adenopathy. He has noticed a small nodule on his right scrotum. This is not tender and not growing since first seen. Meds: Cellcept PE: General: looks good, alert and interactive Skin; scars well healed Ent; ok Nodes; small left inquinal Lungs; ok Heart; ok Abd; no masses or tenderness Genital; approximate 4 mm very mobile hard non tender nodule in right scrotum. It does not seem to be in the scrotal wall or the testes. Possible in the epididymis. Neuro; grossly normal Plan: CBC, Neutropenia EBV quantitative, pending IgG level. 711 Return 6 weeks. Infuse IVIG 25 grams per order. Return 6 weeks. documented in this encounter Miscellaneous Notes * Miscellaneous Scans - Document, Scanned - 05/25/2012 3:10 PM CDT documented in this encounter Plan of Treatment Not on file documented as of this encounter Procedures Procedure Name Priority Date/Time Associated Diagnosis Comments JOSE-BORREGO VIRUS PCR QUANT BLOOD/CSF Routine 05/18/2012 8:43 AM CDT Hypogammaglobulinem ia (HCC) CBC W AUTO DIFFERENTIAL ZAHRA 05/18/2012 8:43 AM CDT Hypogammaglobulinem ia (HCC) IGG BLOOD ZAHRA 05/18/2012 8:43 AM CDT Hypogammaglobulinem ia (HCC) DIFFERENTIAL MANUAL Routine 05/18/2012 8 :43 AM CDT Hypogammaglobulinem ia (HCC) documented in this encounter Results * IGG BLOOD (05/18/2012 8:43 AM CDT) IgG 711 540 - 1,822 mg/dL 05/18/2012 10:37 AM CDT [facility] Blood specimen (specimen) BLOOD SPECIMEN / Unknown 05/18/2012 8:43 AM CDT 05/18/2012 9:17 AM CDT Philip Chavez MD LAB - CHEMISTRY O RDERABLES [facility] [address] [place] [address] * (ABNORMAL) JOSE-BAR VIRUS PCR QUANTITATIVE BLOOD (05/18/2012 8:43 AM CDT) Pathologist [facility] Jose-Borrego Virus DNA PCR Quantitative POSITIVE for EBV DNA but below level of accurate quantitatio n(A) No EBV DNA detected 05/19/2012 7:35 AM CDT [facility] Blood specimen (specimen) BLOOD SPECIMEN / Unknown 05/18/2012 8:43 AM CDT 05/18/2012 9:18 AM CDT Narrative [facility] - 05/19/2012 7:35 AM CDT This assay has a lower [...] ??EBV levels can vary by ??specimen type: [facility] uses whole blood which is more [...] MICROBIOLOG Y ORDERABLES Performing Organization Address City/State/[facility] Co de Phone Number [facility] [address] [place] [address] * (ABNORMAL) CBC W AUTO DIFFERENTIAL (05/18/2012 8:43 AM CDT) [facility] Signature WBC 2.6(L) 4.4 - 10.7 x10^9/L 05/18/2012 10:40 AM CDT [facility] RBC 4.82 3.80 - 5.40 x10^12/L 05/18/2012 10:40 AM CDT [facility] Hemoglobin 15.3 12.0 - 17.6 g/dL 05/18/2012 10:40 AM T [facility] Hematocrit 42.0 35.2 - 51.7 % 05/18/2012 10:40 AM T [facility] MCV 87.1 80.7 - 98.3 fl 05/18/2012 10:40 AM CDT [facility] MCH 31.7 26.7 - 34.0 pg 05/18/2012 10:40 AM T [facility] MCHC 36.4(H) 30.8 - 35.9 gm/dL 05/18/2012 10:40 AM T [facility] RDW-CV 13.3 12.1 - 14.9 % 05/18/2012 10:40 AM [facility] MPV 11.2 9.4 - 12.9 fl 05/18/2012 10:40 AM T [facility] nRBC Auto 0 05/18/2012 10:40 AM [facility] Hematology Reflex Status Manual Diff to follow 05/18/2012 10:40 AM [facility] Platelet Count 126(L) 153 - 416 x10^9/L 05/18/2012 10:40 AM [facility] Blood specimen (specimen) BLOOD SPECIMEN / Unknown 05/18/2012 8:43 AM CDT 05/18/2012 9:18 AM CDT Philip Chavez MD LAB - HEMATOLOGY ORDERABLES Performing Organization Address City/State/[facility] de Phone Number [facility] [address] [place] [address] * (ABNORMAL) DIFFERENTIAL MANUAL (05/18/2012 8:43 AM CDT) WBC Auto 2.6 X(10)9/L 05/18/2012 10:40 AM CDT [facility] Neutrophil % Manual 19(L) 44 - 73 % 05/18/2012 10:40 AM T [facility] Lymphocytes % Manual 47(H) 20 - 43 % 05/18/2012 10:40 AM T [facility] Monocytes % Manual 22(H) 5 - 13 % 2011 10:40 AM CDT [facility] Eosinophils % Manual 2 0 - 6 % 05/18/2012 10:40 AM CDT [facility] Atypical Lymphocyte % Manual 6 % 05/18/2012 10:40 AM CDT [facility] Band % Manual 4 0 - 11 % 05/18/2012 10:40 AM CDT [facility] Cells Counted 100 # cells 05/18/2012 10:40 AM T [facility] WBC Morph Normal 05/18/2012 10:40 AM T [facility] Anisocytosis Slight 05/18/2012 10:40 AM T [facility] Poikilocytosis Slight 05/18/2012 10:40 AM T [facility] Blood specimen (specimen) BLOOD SPECIMEN / Unknown 05/18/2012 8:43 AM CDT 05/18/2012 9:18 AM CDT Philip Chavez MD LAB - HEMATOLOGY ORDERABLES Performing Organization Address City/State/[facility] Co de Phone Number [facility] [address] [place] [address] documented in this encounter Visit Diagnoses Diagnosis Hypogammaglobulinemia (HCC) Hypogammaglobulinaemia, unspecified Neutropenia associated with autoimmune disease (HCC) Other neutropenia Lymphadenopathy Enlargement of lymph nodes documented in this encounter Administered Medications Inactive Administered Medications - up to 3 most recent administrations Medication Order MAR Action Action Date Dose Rate Site acetaminophen (TYLENOL) tablet 650 mg 650 mg, Oral, ONCE, 1 dose, On Wed05/18/12 at 0845, Administer one (1) hour prior to IVIG administration. $ Given 05/18/2012 10:07 AM CDT 650 mg dextrose 5 % infusion at 75 mL/hr, Intravenous, CONTINUOUS, Starting on Wed05/18/12 at 0845, Until Brenda 05/19/12 at 0119, IVIG maintenance IV Fluid/Flush solution $ New Bag/Syringe 05/18/2012 12:49 PM CDT 75 mL/hr diphenhydrAMINE (BENADRYL) tablet 50 mg 50 mg, Oral, ONCE, 1 dose, On Wed05/18/12 at 0845, Administer one (1) hour prior to IVIG administration. $ Given 05/18/2012 10:06 AM CDT 50 mg immune globulin (human) (PRIVIGEN) 10 % infusion 25 g 25 g, Intravenous, CONTINUOUS, Starting on Wed05/18/12 at 0845, Until Wed05/18/12 at 1044, Intravenous, CONTINUOUS for 2 hours, Initiate infusion [...] rate at one half the previous rate. Rate Change 05/18/2012 11:08 AM CDT 25 g 164 mL/hr Rate Change 05/18/2012 10:53 AM CDT 25 g 131 mL/hr Rate Change 05/18/2012 10:38 AM CDT 25 g 98 mL/hr documented in this encounter Care Teams Head Wrestling Coach Relationship Specialty Start Date End Date Vilma Spangler MD [address] [place] [id number] PCP - General 01/05/11 documented as of this encounter
--- OUTSIDE RECORDS SUMMARY | 2024-10-28 05:57 | XMS_ITS | Encounter Summary ---
Author Organization [facility] Address [address] [place] [address] Care Team Providers Care Program Project Manager Name Role Phone Vilma Spangler MD Primary Care Provider [phone] Reason for Visit * Reason Onset Date Comments Results 03/30/2012 Encounter Details Date Type Department Care Team (Late st Contact Info) Description 03/30/2012 Telephone [facility] Pediatrics - ENT [address] [place] [phone] Silverio Rivas MD [facility] [place] [address] Results Social History Tobacco Use Types Packs/Day [...] encounter Miscellaneous Notes * Telephone Encounter - Silverio Rivas - 03/30/2012 3:29 PM CDT I spoke with Mom and told her 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 There was no evidence of lymphoma. Beka is doing well post operatively. I spoke with Dr. Chavez's nurse and learned he is aware of the pathology. The plan is for Dr. Chavez to see Beka next week. He is considering an ID consultation. -Rob documented in this encounter Plan of Treatment Not on file documented as of this encounter Visit Diagnoses Not on filedocumented in this encounter Care Teams Program Project Manager Relationship Specialty Start Date End Date Vilma Spangler MD [address] [phone] PCP - General 01/05/11 documented as of this encounter
--- OUTSIDE RECORDS SUMMARY | 2024-10-28 05:57 | XMS_ITS | Encounter Summary ---
Author Organization [facility] Address [address] [place] [address] Care Team Providers Care Collet Driller Name Role Phone Lor Spangler MD Primary Care Provider [phone] Reason for Visit * Hospital - Outpatient (Routine) - Closed Specialty Diagnoses / Procedures Referred By Sascha rey Referred To Contact Hematology and Oncology / Oncology-Medical Diagnoses - Procedures - CG MAIN Shivani Fernandez MD [address] [place] [address] Referral ID Status Reason Start Date Expiration Date Visits Re quested Visits Authorized [id number] Closed 04/20/2012 10/17/2012 1 1 Encounter Details Date Type Department Care Team (Latest Contact Info) Description 04/20/2012 8:00 AM CDT - 04/20/2012 11:59 PM CDT Hospital Encounter [facility] at [address] [address] Shivani Fernandez MD [address] [place] [address] [phone] Discharge Disposition: Home or Self Care Social [...] Sign Reading Time Taken Comments Blood Pressure 92/52 04/20/2012 12:04 PM CDT Pulse 78 04/20/2012 12:04 PM CDT Temperature 36.4 ??C (97.6 ??F) 04/20/2012 12:04 PM C DT Respiratory Rate 16 04/20/2012 12:04 PM CDT Oxygen Saturation 98% 04/20/2012 8:00 AM CDT Inhaled Oxygen Concentration - - Weight 53.6 kg (118 lb 2.7 oz) 04/20/2012 8:00 A M CDT Height 169.1 cm (5' 6.58 ) 04/20/2012 8:00 AM CD T Body Mass Index 18.74 04/20/2012 8:00 AM CDT documented in this encounter [...] as of this encounter Progress Notes * Yeimy Chao MD - 04/20/2012 5:45 PM CDT [address] [place] [address] PEDIATRIC GASTROENTEROLOGY NAME: ADI NICHOLS : 1995 UNIT #: [id number] CSN #: [id number] DATE SEEN: 04/20/2012 I had the pleasure of evaluating Adi Nichols at the [facility] on April 20, 2012. Adi is a 17-year-old teenager status post cadaveric liver transplant. He has history of autoimmune neutropenia and thrombocytopenia. He has been followed by Dr. Chavez. Recently, he had lymphadenopathy removed from his neck, which was benign. The patient is here receiving IVIG for chronic hypogammaglobulinemia. No fever. He just finished his year of college. The patient is here in company of his sister. MEDICATIONS: Tacrolimus 1 mg b.i.d. dAi's weight has been stable. NUTRITION AND DIET: Regular diet. BMI is 18.9. LABORATORIES FROM TODAY: WBC is 5.7, hemoglobin 15.3, platelets 173,000. 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 PHYSICAL EXAMINATION: Cooperative teenager. He has very short hair. Conjunctivae is pink. No jaundice. Throat is clear. Well-healed scar on left cervical area. No other lymphadenopathy is palpable. Chest is clear. Heart: S1, S2. No murmur. Abdomen: Soft, benign. Thereis a old well-healed scar from liver transplant. ASSESSMENT: 17-year-old young man with history of fulminant nonpalpable hepatitis at 4 years of age. s/p liver transplantation in March 1999. 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 History of autoimmune neutropenia and thrombocytopenia. We will review his tacrolimus level with our wound care coordinator Niurka Gutierrez RN. He will have routine labs every 3 months. We will follow up his course in conjunction with Dr. Chavez. Dictated By: YEIMY CHAO MD YESICA/Gale JOB ID: [id number] cc: LOR SPANGLER PEDIATRIC GASTROENTEROLOGY * Ria Perera RN - 04/20/2012 1:14 PM CDT Pt received ordered dose of IVIG. Pt tolerated well. * Shivani Fernandez MD - 04/20/2012 9:30 AM CDT Hematology/Oncology Progress Note 04/20/2012 Adi Nichols PCP: Lor Spangler MD Diagnosis: Autoimmune Thrombocytopenia/Autoimmune Neutropenia Liver Transplant at 4yo Lymphadenopathy No Known Allergies Current Outpatient Prescriptions Medication Sig Dispense Refill ??? tacrolimus (PROGRAF) 1 MG capsule Take 1 Cap by mouth 2 times daily. 60 Cap 6 ??? oxycodone-acetaminophen (PERCOCET) 5-325 MG tablet Take 1 Tab by mouth every 4 hours as needed for Pain. 28 Tab 0 Current Facility-Administered Medications Medication Dose Route Frequency Provider Last Rate Last Dose ??? immune globulin (human) (PRIVIGEN) 10 % infusion 27 g 0.5 g/kg Intravenous Once Shivani Fernandez MD ??? acetaminophen (TYLENOL) tablet 650 mg 650 mg Oral Once Shivani Fernandez MD ??? diphenhydrAMINE (BENADRYL) injection 50 mg 50 mg Intravenous Once Shivani Fernandez MD Interval History: Clinic today for monthly IVIG, peds GI appt ([place]) as well. Adi reports no new LAD, and previous nodes are continuing to regress. Only has a couple palpable neck nodes. Is w/o complaints today. Past Medical History: Unchanged 17yo male with a history of cadaveric liver transplant at 4yo, who developed autoimmune neutropenia/thrombocytopenia 3 years ago. The autoimmune process was felt to be secondary to chronic immune suppression coupled with reactivation of EBV. He ultimately responded to Rituximab with clearance of EBV and normalization of counts. 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 04/15: He recently developed lymphadenopathy most notable in the left neck. PET/CT revealed diffuse adenopathy in the chest and abdomen as well as bilateral cervical areas. No classic B symptoms. Feels well. No clear resolution with antibiotics. Biopsy of left cervical nodes 03/24/12 revealed granulomatous lymphadenitis. No clear malignant elements. Healing well. Nodes seem to be getting smaller. Family Medical History: unchanged Social History: Living at home with parents, sibs. 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 Review of Systems: See Interval History. Remainder of ROS neg. Physical Exam Constitutional: BP 90/60 Pulse 82 Temp 96.8 ??F Resp 16 Ht 1.691 m (5' 6.58 ) Wt 53.6 kg (118 lb 2.7 oz) BMI 18.74 kg/m2 SpO2 98% BSA (Calculated): 1.59 General Appearance: No acute distress. Awake and alert. Head: No nasal congestion or discharge. Skin: no rashes, bruises, or petechiae. Eyes: anicteric: pupils equal, round, reactive to light; intact extra-ocular movements Mouth/throat: no sores, erythema, exudates, or mucosal pallor. Lymph nodes: ~2 cm palpable L posterior auricular LN, mobile, no overlying skin changes. Healing surgical incision over L lower neck from biopsy. No other palpable cervical or supraclavicular nodes. Chest: lungs clear to auscultation Heart: normal S1 and S2, no murmur Abdomen: soft, non-tender, no masses or hepatosplenomegaly Genitalia: deferred Extremities: no focal swelling or tenderness; full ROM. Neuro: grossly intact Lab and/or Imaging Studies Recent Results (from the past 24 hour(s)) NADINE-BAR VIRUS PCR QUANTITATIVE BLOOD Collection Time 04/20/12 8:40 AM Component Value Range EBV DNA Quant PCR POSITIVE for EBV DNA (*) No EBV DNA detected EBV DNA Number copies/mL 8602 EBV DNA Guillermo (log 10 copies/ml) 3.93 DIFFERENTIAL MANUAL Collection Time 04/20/12 8:41 AM Component Value Range WBC Auto 5.7 Neutro Manual 64 44-73 (%) Lymph Manual 10 (*) 20-43 (%) Price Manual 7 5-13 (%) Eos Manual 3 0-6 (%) Atyp Lymph Manual 16 Cells Counted 100 Plt Est Adequate platelets WBC Morph Normal Anisocytosis Slight Poikilocytosis Slight CBC W AUTO DIFFERENTIAL Collection Time 04/20/12 8:41 AM Component Value Range WBC 5.7 4.4-10.7 (x10^9/L) RBC 4.93 3.80-5.40 (x10^12/L) Hgb 15.3 12.0-17.6 (g/dL) HCT 42.5 35.2-51.7 (%) MCV 86.2 80.7-98.3 (fl) MCH 31.0 26.7-34.0 (pg) MCHC 36.0 (*) 30.8-35.9 (gm/dL) IPF 3.3 1.1-6.2 (%) RDW-CV 12.6 12.1-14.9 (%) MPV 11.0 9.4-12.9 (fl) NRBC Auto 0 Hemo Reflex Status Manual Diff to follow Plt Ct 173 153-416 (x10^9/L) LYTES (NA K CL CO2) BLOOD Collection Time 04/20/12 8:41 AM Component Value Range Sodium 141 136-145 (mmol/L) Potassium 3.9 3.5-5.1 (mmol/L) Chloride 107 98-107 (mmol/L) CO2 20 (*) 22-29 (mmol/L) Anion Gap 14 5-20 (mmol/L) BUN Collection Time 04/20/12 8:41 AM Component Value Range BUN 13.1 5.3-18.7 (mg/dL) CREATININE BLOOD Collection Time 04/20/12 8:41 AM Component Value Range Creatinine 0.79 0.61-1.07 (mg/dL) eGFR by MDRD >60 >60 (ml/min/1.73m2) eGFR by MDRD AFR AMER >60 >60 (ml/min/1.73m2) GLUCOSE Collection Time 04/20/12 8:41 AM Component Value Range Glucose Random 84 70-105 (mg/dL) MAGNESIUM BLOOD Collection Time 04/20/12 8:41 AM Component Value Range Magnesium mg/dL 1.9 1.7-2.3 (mg/dL) HEPATIC FUNCTION PANEL Collection Time 04/20/12 8:41 AM Component Value Range Alk Phos 151 (*) 39-139 (U/L) ALT/SGPT 41 6-46 (U/L) AST/SGOT 33 8-42 (U/L) Protein Total 6.2 (*) 6.3-8.2 (gm/dL) Albumin 3.9 3.3-4.9 (gm/dL) Bili Total 0.6 0.3-1.2 (mg/dL) Bili Conj Direct 0.25 0.11-0.64 (mg/dL) GGT Collection Time 04/20/12 8:41 AM Component Value Range GGT 64 8-69 (U/L) TACROLIMUS LEVEL Collection Time 04/20/12 8:41 AM Component Value Range Tacrolimus 5.9 IGG BLOOD Collection Time 04/20/12 9:20 AM Component Value Range IgG 163 870-2480 (mg/dL) Procedures: IVIG 0.5gm/kg - premedicated w/ Tylenol and Benadryl Assessment 1. Lymphadenopathy: Granulomatous lymphadenitis. Bartonella and Histo titers negative. PPD negative. AFB and fungal stains of node negative. Appears to be improving. 2. Autoimmune Thrombocytopenia/Neutropenia: Related to continuous churn buttermaker immune suppression with tacrolimusand EBV reactivation. Ultimately treated with Rituximab in late 2008. EBV PCR remains positive and quantifiable but not increased. No specific symptoms. Counts remain normal. 3. Immune suppression: Patient on chronic tacrolimus for liver transplant. 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 IVIG 3 1/2 weeks ago Plan - IVIG w/ premeds, as above Follow-up: RTC 4wks for IVIG Cc: Lor Spangler MD * Leyla Vargas, RN - 04/20/2012 9:30 AM CDT Patient here with his sister for a scheduled visit / IVIG. PIV placed in his left AC using a 24 G, 3/4 Calvo catheter. Lab samples obtained. PIV saline locked. Patient examined by Aylin Fernandez MD. Report given to Ria Perera RN, who will resume care of the patient. documented in this encounter Miscellaneous Notes * Miscellaneous Scans - Document, Scanned - 04/28/2012 8:23 AM CDT documented in this encounter Plan of Treatment Not on file documented as of this encounter Procedures Procedure Name Priority Date/Time Associated Diagnosis Comments IGG BLOOD ZAHRA 04/20/2012 9:20 AM CDT Hypogammaglobulinem ia (HCC) TACROLIMUS LEVEL Routine 04/20/2012 8:41 AM CDT Liver replaced by transplant (HCC) CBC W AUTO DIFFERENTIAL Routine 04/20/2012 8:41 AM CDT Liver replaced by transplant (HCC) GLUCOSE Routine 04/20/2012 8:41 AM CDT Liver replaced by transplant (HCC) LYTES (NA K CL CO2) BLOOD Routine 04/20/2012 8:41 AM CDT Liver replaced by transplant (HCC) HEPATIC FUNCTION PANEL Routine 04/20/2012 8:41 AM CDT Liver replaced by transplant (HCC) MAGNESIUM BLOOD Routine 04/20/2012 8:41 AM CDT Liver replaced by transplant (HCC) GGT Routine 04/20/2012 8:41 AM CDT Liver replaced by transplant (HCC) CREATININE BLOOD Routine 04/20/2012 8:41 AM CDT Liver replaced by transplant (HCC) BUN Routine 04/20/2012 8:41 AM CDT Liver replaced by transplant (HCC) DIFFERENTIAL MANUAL Routine 04/20/2012 8 :41 AM CDT Liver replaced by transplant (HCC) NADINE-DE LA CRUZ VIRUS PCR QUANT BLOOD/CSF Routine 04/20/2012 8:40 AM CDT Liver replaced by transplant (HCC) documented in this encounter Results * IGG BLOOD (04/20/2012 9:20 AM CDT) IgG 631 540 - 1,822 mg/dL 04/20/2012 11:27 AM CDT [facility] Blood specimen (specimen) BLOOD SPECIMEN / Unknown 04/20/2012 9:20 AM CDT 04/20/2012 9:36 AM CDT Shivani Fernandez MD LAB - CHEMISTRY MACIE HERNÁNDEZ [facility] Organization Address City/State/[place] Co de Phone Number [facility] [address] [place] [address] * TACROLIMUS LEVEL (04/20/2012 8:41 AM CDT) Tacrolimus 5.9 ng/mL 04/20/2012 1:17 PM CDT [facility] Blood specimen (specimen) BLOOD SPECIMEN / Unknown 04/20/2012 8:41 AM CDT 04/20/2012 8:58 AM CDT Narrative [facility] - 04/20/2012 1:17 PM CDT Tacrolimus Information: Nephrology and Cardiology: 3.0-12.0 ng/mL ?GI: 2.0-15.0 ng/mL Yeimy Chao MD LAB - THERAPEUTIC DR MCCLELLAN MONITORING ORDERABLES Performing Organization Address City/[facility]/ZIP Co de Phone Number [facility] [address] [place] [address] * GGT (04/20/2012 8:41 AM CDT) GGT 64 8 - 69 U/L 04/20/2012 11:08 AM T [facility] Blood specimen (specimen) BLOOD SPECIMEN / Unknown 04/20/2012 8:41 AM CDT 04/20/2012 8:58 AM CDT Yeimy Chao MD LAB - CHEMISTRY MACIE HERNÁNDEZ Performing Organization Address [facility]/[place] Co de Phone Number [facility] [address] [place] [address] * (ABNORMAL) HEPATIC FUNCTION PANEL (04/20/2012 8:41 AM CDT) Alkaline Phosphatase 151(H) 39 - 139 U/L 04/20/2012 11:07 AM T [facility] ALT 41 6 - 46 U/L 04/20/2012 11:07 AM [facility] AST 33 8 - 42 U/L 04/20/2012 11:07 AM [facility] Protein Total 6.2(L) 6.3 - 8.2 gm/dL 04/20/2012 11:07 AM T [facility] Albumin 3.9 3.3 - 4.9 gm/dL 04/20/2012 11:07 AM [facility] Bilirubin Total 0.6 0.3 - 1.2 mg/dL 04/20/2012 11:07 AM [facility] Bilirubin Direct 0.25 0.11 - 0.64 mg/dL 04/20/2012 11:07 AM T [facility] Blood specimen (specimen) BLOOD SPECIMEN / Unknown 04/20/2012 8:41 AM CDT 04/20/2012 8:58 AM CDT Yeimy Chao MD LAB - CHEMISTRY MACIE HERNÁNDEZ Performing Organization Address [facility]/[place] Co de Phone Number [facility] [address] [place] [address] * MAGNESIUM BLOOD (04/20/2012 8:41 AM CDT) Magnesium 1.9 1.7 - 2.3 mg/dL 04/20/2012 11:08 AM CDT [facility] Blood specimen (specimen) BLOOD SPECIMEN / Unknown 04/20/2012 8:41 AM CDT 04/20/2012 8:58 AM CDT Yeimy Chao MD LAB - CHEMISTRY MACIE HERNÁNDEZ Performing Organization Address City/[facility]/[place] Co de Phone Number [facility] [address] [place] [phone] * GLUCOSE (04/20/2012 8:41 AM CDT) Glucose 84 70 - 105 mg/dL 04/20/2012 11:08 AM CDT [facility] Blood specimen (specimen) BLOOD SPECIMEN / Unknown 04/20/2012 8:41 AM CDT 04/20/2012 8:58 AM CDT Yeimy Chao MD LAB - CHEMISTRY MACIE HERNÁNDEZ Performing Organization Address [facility]/[place] Co de Phone Number [facility] [address] [place] [address] * CREATININE BLOOD (04/20/2012 8:41 AM CDT) Creatinine 0.79 0.61 - 1.07 mg/dL 04/20/2012 11:07 AM CDT [facility] eGFR by MDRD >60 >60 ml/min/1.7 3m2 04/20/2012 11:07 AM CDT [facility] eGFR by MDRD >60 >60 ml/min/1.7 3m2 04/20/2012 11:07 AM CDT [facility] Blood specimen (specimen) BLOOD SPECIMEN / Unknown 04/20/2012 8:41 AM CDT 04/20/2012 8:58 AM CDT Yeimy Chao MD LAB - CHEMISTRY MACIE HERNÁNDEZ Performing Organization Address City/[facility]/ZIP Co de Phone Number [facility] [address] [place] [address], [place] [address] * BUN (04/20/2012 8:41 AM CDT) Pathologist [facility] BUN 13.1 5.3 - 18.7 mg/dL 04/20/2012 11:07 AM CDT [facility] Blood specimen (specimen) BLOOD SPECIMEN / Unknown 04/20/2012 8:41 AM CDT 04/20/2012 8:58 AM CDT Yeimy Chao MD LAB - CHEMISTRY ORDKleber HERNÁNDEZ [facility] [address] [place] [address] * (ABNORMAL) LYTES (NA K CL CO2) BLOOD (04/20/2012 8:41 AM CDT) Pathologist [facility] Sodium 141 136 - 145 mmol/L 04/20/2012 11:07 AM CDT [facility] Potassium 3.9 3.5 - 5.1 mmol/L 04/20/2012 11:07 AM CDT [facility] Chloride 107 98 - 107 mmol/L 04/20/2012 11:07 AM T [facility] CO2 20(L) 22 - 29 mmol/L 04/20/2012 11:07 AM T [facility] Anion Gap 14 5 - 20 mmol/L 04/20/2012 11:07 AM CDT [facility] Blood specimen (specimen) BLOOD SPECIMEN / Unknown 04/20/2012 8:41 AM CDT 04/20/2012 8:58 AM CDT Yeimy Chao MD LAB - CHEMISTRY MACIE HERNÁNDEZ [facility] [address] [place] [address] * (ABNORMAL) CBC W AUTO DIFFERENTIAL (04/20/2012 8:41 AM CDT) Pathologist [facility] WBC 5.7 4.4 - 10.7 x10^9/L 04/20/2012 11:40 AM CDT [facility] RBC 4.93 3.80 - 5.40 x10^12/L 04/20/2012 11:40 AM CDT [facility] Hemoglobin 15.3 12.0 - 17.6 g/dL 04/20/2012 11:40 AM T [facility] Hematocrit 42.5 35.2 - 51.7 % 04/20/2012 11:40 AM T [facility] MCV 86.2 80.7 - 98.3 fl 04/20/2012 11:40 AM T [facility] MCH 31.0 26.7 - 34.0 pg 04/20/2012 11:40 AM T [facility] MCHC 36.0(H) 30.8 - 35.9 gm/dL 04/20/2012 11:40 AM [facility] Immature Platelet Fraction 3.3 1.1 - 6.2 % 04/20/2012 11:40 AM [facility] RDW-CV 12.6 12.1 - 14.9 % 04/20/2012 11:40 AM [facility] MPV 11.0 9.4 - 12.9 fl 04/20/2012 11:40 AM [facility] nRBC Auto 0 04/20/2012 11:40 AM [facility] Hematology Reflex Status Manual Diff to follow 04/20/2012 11:40 AM [facility] Platelet Count 173 153 - 416 x10^9/L 04/20/2012 11:40 AM [facility] Blood specimen (specimen) BLOOD SPECIMEN / Unknown 04/20/2012 8:41 AM CDT 04/20/2012 9:00 AM CDT Yeimy Chao MD LAB - HEMATOLOGY ORD ERABLES Performing Organization Address City/State/[place] Co de Phone Number [facility] [address] [place] [address] * (ABNORMAL) DIFFERENTIAL MANUAL (04/20/2012 8:41 AM CDT) WBC Auto 5.7 X(10)9/L 04/20/2012 11:40 AM T [facility] Neutrophil % Manual 64 44 - 73 % 04/20/2012 11:40 AM T [facility] Lymphocytes % Manual 10(L) 20 - 43 % 04/20/2012 11:40 AM T [facility] Monocytes % Manual 7 5 - 13 % 2011 11:40 AM T [facility] Eosinophils % Manual 3 0 - 6 % 04/20/2012 11:40 AM T [facility] Atypical Lymphocyte % Manual 16 % 04/20/2012 11:40 AM T [facility] Cells Counted 100 # cells 04/20/2012 11:40 AM T [facility] Platelet Estimation Adequate platelets 04/20/2012 11:40 AM T [facility] WBC Morph Normal 04/20/2012 11:40 AM T [facility] Anisocytosis Slight 04/20/2012 11:40 AM T [facility] Poikilocytosis Slight 04/20/2012 11:40 AM T [facility] Blood specimen (specimen) BLOOD SPECIMEN / Unknown 04/20/2012 8:41 AM CDT 04/20/2012 9:00 AM CDT Yeimy Chao MD LAB - HEMATOLOGY ORD ERABLES Performing Organization Address City/State/[place] Co de Phone Number [facility] [address] [place] [address] * (ABNORMAL) NADINE-BAR VIRUS PCR QUANTITATIVE BLOOD (04/20/2012 8:40 AM CDT) Nadine-De La Cruz Virus DNA PCR Quantitative POSITIVE for EBV DNA(A) No EBV DNA detected 04/20/2012 2:45 PM T [facility] Nadine-De La Cruz DNA Number copies/mL 8,602 copies/mL 04/20/2012 2:45 PM T [facility] Nadine-De La Cruz RAGHAV Quant log 10 copies/mL 3.93 log 10 copies/mL 04/20/2012 2:45 PM T [facility] Blood specimen (specimen) BLOOD SPECIMEN / Unknown 04/20/2012 8:40 AM CDT 04/20/2012 9:02 AM CDT Narrative [facility] - 04/20/2012 2:45 PM CDT This assay has a lower limit [...] ??EBV levels can vary by ??specimen type: [facility] uses whole blood which is more sensitive than plasma for detection of EBV DNA. ??Also, the lack of a universal quantitative standard contributes to interlaboratory variability. Therefore, caution should be exercised when attempting to compare results obtained from different laboratories. It is recommended that for tracking relative changes in EBV DNA levels in particular patient, the same laboratory should test the specimen. Yeimy Chao MD LAB - MICROBIOLOGY O SARAH Performing Organization Address City/State/[place] Co de Phone Number [facility] [address] [place] [address] documented in this encounter Visit Diagnoses Diagnosis Liver replaced by transplant (HCC) Liver replaced by transplant Hypogammaglobulinemia (HCC) Hypogammaglobulinaemia, unspecified Lymphadenopathy Enlargement of lymph nodes documented in this encounter Administered Medications Inactive Administered Medications - up to 3 most recent administrations Medication Order MAR Action Action Date Dose Rate Site acetaminophen (TYLENOL) tablet 650 mg 650 mg, Oral, ONCE, 1 dose, On Wed04/20/12 at 0945, Maximum allowable Acetaminophen amount = 4 Grams (4000 mg) / 24 hours. $ Given 04/20/2012 9:56 AM CDT 650 mg diphenhydrAMINE (BENADRYL) injection 50 mg 50 mg, Intravenous, ONCE, 1 dose, On Wed04/20/12 at 0945, Max intravenous rate = 25 mg/min $ Given 04/20/2012 9:56 AM CDT 50 mg immune globulin (human) (PRIVIGEN) 10 % infusion 27 g 27 g (0.5 g/kg ? 53.6 kg), Intravenous, ONCE, 1 dose, On Wed04/20/12 at 1030, Premed w/ Tylenol and Benadryl $ Given 04/20/2012 10:52 AM CDT 27 g documented in this encounter Care Teams Collet Driller Relationship Specialty Start Date End Date Lor Spangler MD [address] [address] PCP - General 01/05/11 documented as of this encounter
--- OUTSIDE RECORDS SUMMARY | 2024-10-28 05:57 | XMS_ITS | Encounter Summary ---
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 Here for scheduled scan. PIV #[id number] inserted to LACwithout difficulty and cbc collected and sent. NS flushes well and dressing applied. Pt to radiology for CT scan. RTC and PIV d/c'd intact per Sai Goode RN. Discussed cbc results with dr chavez and Beka to decrease prednisone dose to 30 mg BID. Mom verbalized understanding. Pt d/c'd to surgery consult appointment then home ambulatory with mom. dr chavez to f/u with consult and scan results. [employer] NEWS GATHERING EDITOR documented in this encounter Procedure Notes * Document, Scanned - 12/06/2012 12:57 PM CSTAssociated Order(s): LAB RESULTS ORDER [employer] NEWS GATHERING EDITOR documented in this encounter Miscellaneous Notes * Miscellaneous Scans - Document, Scanned - 11/08/2012 7:29 PM CST [employer] NEWS GATHERING EDITOR documented in this encounter Plan of Treatment Not on file documented as of this encounter Procedures Procedure Name Priority Date/Time Associated Diagnosis Comments LAB RESULTS ORDER 12/06/2012 12: 57 PM ELECTRONIC NEWS GATHERING EDITOR DIFFERENTIAL MANUAL Routine 10/27/2012 8 :10 AM ELECTRONIC NEWS GATHERING EDITOR Neutropenia associated with autoimmune disease (HCC) CBC W AUTO DIFFERENTIAL STAT 10/27/2012 8:10 AM ELECTRONIC NEWS GATHERING EDITOR Neutropenia associated with autoimmune disease (HCC) documented in this encounter Results * LAB RESULTS ORDER (12/06/2012 12:57 PM ELECTRONIC NEWS GATHERING EDITOR) Narrative 12/06/2012 12:57 PM ELECTRONIC NEWS GATHERING EDITOR Procedure Note Document, Scanned - 12/06/2012 12:57 PM CST Scanned Document LAB - THERAPEUTIC DR MCCLELLAN MONITORING ORDERABLES * (ABNORMAL) DIFFERENTIAL MANUAL (10/27/2012 8:10 AM ELECTRONIC NEWS GATHERING EDITOR) WBC Auto 11.6(H) 4.4 - 10.7 X(10)9/L 10/27/2012 9:11 AM ELECTRONIC NEWS GATHERING EDITOR [facility] Neutrophil % Manual 76(H) 44 - 73 % 10/27/2012 9:11 AM [facility] Lymphocytes % Manual 8(L) 20 - 43 % 10/27/2012 9:11 AM [facility] Monocytes % Manual 8 5 - 13 % 10/27/2012 9:11 AM [facility] Atypical Lymphocyte % Manual 7(H) <=0 % 10/27/2012 9:11 AM [facility] Band % Manual 1 0 - 11 % 10/27/2012 9:11 AM [facility] Cells Counted 100 # cells 10/27/2012 9:11 AM [facility] Platelet Estimation Decreased 10/27/2012 9:11 AM [facility] WBC Morph Normal 10/27/2012 9:11 AM [facility] Anisocytosis Slight 10/27/2012 9:11 AM [facility] Blood specimen (specimen) BLOOD SPECIMEN / Unknown 10/27/2012 8:10 AM [facility] 10/27/2012 8:31 AM [facility] Philip Chavez MD LAB - HEMATOLOGY ORDERABLES Performing Organization Address City/State/[facility] de Phone Number [facility] [address] [place] [address] * (ABNORMAL) CBC W AUTO DIFFERENTIAL (10/27/2012 8:10 AM [facility]) WBC 11.6(H) 4.4 - 10.7 x10^9/L 10/27/2012 9:11 AM [facility] RBC 4.77 3.80 - 5.40 x10^12/L 10/27/2012 9:11 AM [facility] Hemoglobin 15.7 12.0 - 17.6 g/dL 10/27/2012 9:11 AM [facility] Hematocrit 43.5 35.2 - 51.7 % 10/27/2012 9:11 AM [facility] MCV 91.2 80.7 - 98.3 fl 10/27/2012 9:11 AM [facility] MCH 32.9 26.7 - 34.0 pg 10/27/2012 9:11 AM [facility] MCHC 36.1(H) 30.8 - 35.9 gm/dL 10/27/2012 9:11 AM [facility] RDW-CV 14.6 12.1 - 14.9 % 10/27/2012 9:11 AM [facility] MPV 11.8 9.4 - 12.9 fl 10/27/2012 9:11 AM [facility] Neutrophils % 73 44 - 73 % 10/27/2012 9:11 AM [facility] Lymphocytes % 16(L) 20 - 43 % 10/27/2012 9:11 AM [facility] Monocytes % 10 5 - 13 % 10/27/2012 9:11 AM [facility] Eosinophils % 0 0 - 6 % 10/27/2012 9:11 AM [facility] Basophils % 0 0 - 2 % 10/27/2012 9:11 AM [facility] Immature Granulocytes 1.0 0 - 1 % 10/27/2012 9:11 AM [facility] Neutrophil Absolute 8.45(H) 2.01 - 7.14 x10^9/L 10/27/2012 9:11 AM [facility] Lymphocytes Absolute 1.82 1.07 - 3.94 x10^9/L 10/27/2012 9:11 AM [facility] Monocytes Absolute 1.16(H) 0.26 - 1.07 x10^9/L 10/27/2012 9:11 AM [facility] Eosinophils Absolute 0.00 0 - 0.47 x10^9/L 10/27/2012 9:11 AM [facility] Basophils Absolute 0.01 0 - 0.08 x10^9/L 10/27/2012 9:11 AM [facility] Immature Granulocytes Absolute 0.12(H) 0.00 - 0.06 x10^9/L 10/27/2012 9:11 AM [facility] Hematology Reflex Status Manual Diff to follow (none) 10/27/2012 9:11 AM [facility] Platelet Count 87(L) 153 - 416 x10^9/L 10/27/2012 9:11 AM [facility] Blood specimen (specimen) BLOOD SPECIMEN / Unknown 10/27/2012 8:10 AM ELECTRONIC NEWS GATHERING EDITOR 10/27/2012 8:31 AM [facility] Philip Chavez MD LAB - HEMATOLOGY ORDERABLES Performing Organization Address City/State/[facility] Co de Phone Number [facility] [address] [facility] ([place], [place] [address] documented in this encounter Visit Diagnoses Diagnosis Neutropenia associated with autoimmune disease (HCC) Other neutropenia documented in this encounter Care Teams Welder Railcar Mechanic Relationship Specialty Start Date End Date Vilma Spangler MD [address] [facility] [address] [place] [address] PCP - General 01/05/11 documented as of this encounter
--- OUTSIDE RECORDS SUMMARY | 2024-10-28 05:57 | XMS_ITS | Encounter Summary ---
Author Organization [facility] Address [address] [place] [id number] Care Team Providers Care Ship Runner Name Role Phone Vilma Spangler MD Primary Care Provider Reason for Visit * Reason Comments Cellulitis cellulitis R eye. aubrey vazquez nodes.has IVIG infusion scheduled for tomorrow. Encounter Details Date Type Department Care Team (Latest Contact Info) Description 03/08/2012 5:07 PM CDT - 03/09/2012 6:57 PM CDT Hospital Encounter CG [address] [place] [address]. [place] [address] Ariadne Kelly MD [address] [place] [address] [place] [address] Md Carson [address] [place] [address] [id number] Tesha Naik MD [address] [place] [phone] Medical Inpatient Discharge Disposition: Home or Self Care Social [...] Sign Reading Time Taken Comments Blood Pressure 106/62 03/09/2012 3:35 PM CDT Pulse 72 03/09/2012 3:35 PM CDT Temperature 37.6 ??C (99.6 ??F) 03/09/2012 3:35 PM CD T Respiratory Rate 20 03/09/2012 3:35 PM CDT Oxygen Saturation - - Inhaled Oxygen Concentration - - Weight 54.8 kg (120 lb 13 oz) 03/08/2012 11:47 A M CDT Height 170.2 cm (5' 7 ) 03/08/2012 6:08 PM CDT Body Mass Index 18.92 03/08/2012 11:47 AM CDT documented in this encounter Discharge Summaries * Rossy Wheatley MD - 03/09/2012 5:13 PM CDT Pediatric Discharge Summary Pt. Name: Beka Nichols : 1995 Attending Physician : Tesha Naik MD Admission Date: 03/08/2012 Discharge Date: 03/09/2012 Hospital Course (by problem): Active Hospital Problems Diagnoses Date Noted ??? Cellulitis and abscess of face 03/08/2012 Left upper face, involvement of upper and lower eye lids, area of induration, no fluctuance. Normaleye exam. Afebrile. CBC was reassuring. Blood culture neg. Ultrasound suggested subcutaneous abscess. Surgery evaluated pt in ED and did not think drainage necessary. No evidence of involvement of the intraorbital structures. IV clindamycin was given with marked improvement the next day. Swelling, redness, and pain all reduced. Patient discharged home with PO clindamycin x 10 day course total. ??? Lymphadenopathy 03/08/2012 Many small lymph nodes along the anterior cervical chain. Left sided submandibular mass at the angle of mandible, with bumpy surface, nontender. CBC, LDH and Uric acid levels reassuring and CXR does not demonstrate mediastinal lymphadenopathy. Results discussed with Dr. Chavez. Okay to discharge andfollow up in H/O clinic in 1 wk. ??? Hypogammaglobulinemia 02/17/2010 Receives IVIG q6wks. Received infusion on 03/09/12 prior to discharge. Resolved Hospital Problems Diagnoses Date Noted Date Resolved Discharge Diagnosis(es): Cellulitis and abscess of face Hypogammaglobulinemia Lymphadenopathy Condition on Discharge: Improved, Good Consultations: Hematology/Oncology Diagnostic studies: Radiology: Ultrasound left face: subcutaneous abscess Procedures: None Relevant Labs: My review of lab results is significant for pos EBV titers (decreased quant from previous results), low IgG (493), normal CBC, LDH, and uric acid. Discharge Physical Exam (relevant findings include): General: healthy, alert and no distress Neck: range of motion is intact, no masses, thyroid not enlarged, supple, anterior cervical chain lymphadenopathy, and large submandibular node with bumpy surface. Lungs: breath sounds symmetrical without rales or wheezes and good air movement Heart: regular rate and rhythm, normal S1 and S2, no murmurs PENDING RESULTS: none Discharge Medications: Discharge Medication List as of 03/09/2012 5:49 PM START taking these medications Details clindamycin (CLEOCIN) 300 MG capsule 300 mg, Oral, 3 TIMES DAILY Starting 03/09/2012, Last dose on Wed03/18/12, Disp-27 Cap, R-0, Print, Take 1 Cap by mouth 3 times daily for 9 days. CONTINUE these medications which have NOT CHANGED Details tacrolimus (PROGRAF) 1 MG capsule 1 mg, Oral, 2 TIMES DAILY, Until Discontinued, Historical Medication, Take 1 mg by mouth 2 times daily. Discharge Procedure Orders REGULAR DIET AT HOME ACTIVITY TOLERATED PATIENT TO CALL PHYSICIAN FOR APPOINTMENT Call for an appointment for follow up with Dr. Chavez in [facility] next week. Rossy Wheatley MD CC: [place] [address] [place] [address] documented in this encounter Discharge Instructions * Discharge Instructions* Ro Luis RN - 03/09/2012 5:49 PM CDT Discharge Instructions for: Beka Nichols Discharge Procedure Orders REGULAR DIET AT HOME ACTIVITY TOLERATED PATIENT TO CALL PHYSICIAN FOR APPOINTMENT Call for an appointment for follow up with Dr. Chavez in [facility] next week. The following belonging have been returned to you Clothing Clothing: Yes With Patient: Shirt;Pants;Footwear;Undergarments Secured: Shirt;Pants;Footwear;Undergarments Jewelry Jewelry: None Electronics Electronic Items: Yes With Patient: Cell Phone Secured: Cell Phone Dentures Dentures/Retainers: None Vision Visual Aids: None Hearing Aids Hearing Aids: None Home Medications Home Medications: None Miscellaneous Belongings Miscellaneous Items: None Monetary Monetary Items: None If your child has any worsening of his or her condition, please call your primary care doctor (or their exchange if after hours) or return to the ED if your primary care doctor cannot be reached. 03/09/2012 Abscess/Boil (Furuncle) An abscess (boil or furuncle) is an infected area that contains a collection of pus. SYMPTOMS Signs and symptoms of an abscess include pain, tenderness, redness, or hardness. You may feel a moveable soft area under your skin. An abscess can occur anywhere in the body. TREATMENT An incision (cut by the caregiver) may have been made over your abscess so the pus could be drainedout. Gauze may have been packed into the space or a drain may have been looped thru the abscess cavity (pocket). This provides a drain that will allow the cavity to heal from the inside outwards. Theabscess may be painful for a few days, but should feel much better if it was drained. Your abscess,if seen early, may not have localized and may not have been drained. If not, another appointment may be required if it does not get better on its own or with medications. HOME CARE INSTRUCTIONS ?? Only take [id number] or prescription medicines for pain, discomfort, or fever as directed by your caregiver. ?? Keep the skin and clothes clean around your abscess. ?? If the abscess was drained, you will need to use gauze dressing (???4x4?? ) to collect any draining pus. These dressing typically will need to be changed 3 or more times during the day. ?? The infection may spread by skin contact with others. Avoid skin contact as much as possible. ?? Good hygiene is very important including regular hand washing, cover any draining skin lesions, and don???t share personal care items. ?? If you participate in sports do not share athletic equipment, towels, whirlpools, or personal care items. Shower after every practice or tournament. ?? If a draining area cannot be adequately covered: l Do not participate in sports l Children should not participate in day care until the wound has healed or drainage stops. ?? If your caregiver has given you a follow-up appointment, it is very important to keep that appointment. Not keeping the appointment could result in a much worse infection, chronic or permanent injury, pain, and disability. If there is any problem keeping the appointment, you must call back to this facility for assistance. SEEK MEDICAL CARE IF: ?? You develop increased pain, swelling, redness, drainage, or bleeding in the wound site. ?? You develop signs of generalized infection including muscle aches, chills, fever, or a general ill feeling. ?? An oral temperature above 102?? F (38.9??) develops. See your caregiver as directed for a recheck or sooner if you develop any of the symptoms describedabove. Take antibiotics (medicine that kills germs) as directed if they were prescribed. MAKE SURE YOU: ?? Understand these instructions. ?? Will watch your condition. ?? Will get help right away if you are not doing well or get worse. Document Released: 07/28/2006 Document Re-Released: 01/14/2010 ExitCare?? Patient Information ??2009 [employer]. * Discharge Instructions* Document, Scanned - 03/14/2012 11:09 AM CDT documented in this encounter Medications at Time of Discharge Medication Sig Dispensed Refills Start Date End Date clindamycin (CLEOCIN) 300 MG capsule Take 1 Cap by mouth 3 times daily for 9 days. 27 Cap 0 03/09/2012 03/18/2012 tacrolimus (PROGRAF) 1 MG capsule Take 1 mg by mouth 2 times daily. 03/14/2012 documented as of this encounter Progress Notes * Philip Chavez MD - 03/09/2012 3:38 PM CDT CXR unremarkable. If patient able to go home then follow up with me early next week regarding LAD. Dad knows to make appointment. * Clint Larson - 03/09/2012 1:19 PM CDT Pediatric Medical Student Daily Progress Note 03/09/2012 1:20 PM Hospital Day: 1 Clinical Course No acute events overnight. Patient has no complaints of pain this AM. Tolerating a regular diet. Received IVIG today. Objective Vitals BP: 116/68 mmHg (03/09/12 1045), Temp: 99.6 ??F (03/09/12 1045), Pulse: 70 (03/09/12 1045), Resp: 20 (03/09/12 1045), Height: 170.2 cm (5' 7 ) (03/08/12 1808), Weight: 54.8 kg (120 lb 13 oz) (03/08/12 1147) Temp (24hrs), Av.1 ??F, Min:96.8 ??F, Max:100 ??F 03/08 0700 - 03/09 0659 In: 360 [P.O.:360] Out: - Lab/Other Information CBC: WBC: 9.54 Hgb: 15.8 Hct: 44.[address]: 147 Band: 3% Se% Lymph: 10% (Low) Blood Culture (peripheral) - 03/08/12: Prelim 1: No growth IgG Blood: 493 mg/dL (L) PREVIOUS EBV PCR Labs: Ref. Range 12/10/2011 08:10 01/07/2012 08:00 EBV DNA Quant PCR Latest Range: NO EBV DNA detected Copies/mL 13774 copies of EBV DNA/mL of whole blood. 7633 copies of EBV DNA/mL of whole blood. EBV DNA Quant No range found 4.12 log 10 copies/ml 3.88 log 10 copies/ml Imaging U/S Head & Neck (03/08/12): Multiple real-time sonographic images of the right temporal region are obtained. There is irregular focal fluid collection in the subcutaneous tissues which appears to be somewhat thickened. There is a suggestion of a sinus tract extending towards the skin surface. There is some peripheral hyperemia noted. These findings are most consistent with a subcutaneous abscess. Exam: General appearance: alert, cooperative, no distress Eyes: Injected sclera, PERRL, EOMI erythema and edema on both of the right eyelids that extend to the hair line, mildly tender to palpation. Small 1 cm necrotic area closer to the temporal area. Neck: Palpable firm lymph nodes in the anterior neck. About a 5 cm palpable bumpy mass at the mandibular angle that is mildly tender on palpation. Lungs: chest movement normal and symmetric, lungs clear to auscultation Heart: regular rate and rhythm, normal S1 S2 Abdomen: soft without mass, non-tender, with normal bowel sounds Head: Right evangelical: overall erythema has improved. Some induration. Small area of black tissue Extremities: no clubbing, cyanosis or edema Patient Active Hospital Problem List: 1. Hypogammaglobulinemia (02/17/2010) Assessment: Chronic problem that is followed by Dr. Chavez. IgG level was 439 today. Received IVIG infusion today. Plan: - No management needed at this time. - Will keep regularly scheduled IVIG infusions q6 weeks. - Pt is also being continued on Prograf 1 mq BID. 2. Cellulitis and abscess of face (03/08/2012) Assessment: The U/S and physical exam findings are consistent with cellulitis of right upper face that is erythematous and warm with little fluctuance. The patient does have risk factors for common infections such as this, being he is currently on Prograf and has hypogammaglobulinemia. Surgery was consulted and feel there is nothing to drain although the U/S showed a focal fluid collection in thesubcutaneous tissue - they recommended IV antibiotics. Pt has no complaints of vision loss and extraocular movements are intact, ruling out intraorbital cellulitis. We will continue to watch patient for complications of cellulitis such as bacteremia and sepsis which patient is currently not exhibiti ng- patient has been afebrile and edema is decreasing in size and tenderness. Peripheral blood culture is negative x 1 day. Plan: - Continue IV antibiotics: Clindamycin 600 mg IV q8 hr - Tylenol PRN for pain 3. Lymphadenopathy (03/08/2012) Assessment: The patient has many firm lymph nodes in the anterior cervical chain as well as a very large lymph node at the mandibular angle that is mildy tender and bumpy that have been there for a one week. Etiology of this is currently being investigated and we are unsure of its relation to the cellulitis. 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 Dr. Chavez is following and has concern for EBV associated lymphoproliferative disease. Differential would also include malignancies (especially lymphoma), infection, granulomatous disorders, and atypical lymphoproliferative disorders although the CBC is wnl and not concerning for s uch disorders. We are following Dr. Chavez's recommendations for work-up and management at this time. Plan: - CXR for mediastinal mass/LAD - Labs: Uric Acid, LDH, EBV PCR Clint Larson Medical Student * Tesha Naik MD - 03/09/2012 1:19 PM CDT Attending Physician Supervisory Statement I have interviewed the patient/family and examined this patient. I have reviewed and confirmed the findings of the medical student. Please also see my H&P dated 03/09/2012. Tesha Naik MD * Ria Romero MD - 03/09/2012 7:32 AM CDT Pediatric General Surgery Progress Note Admit Date: 03/08/2012 5:07 PM Hospital Day: 1 Subjective 17 yo M with right temporal cellulitis No events overnight. Afebrile Objective Data Vitals: 03/08/12 1850 03/08/12 2105 03/09/12 0110 03/09/12 0440 BP: 96/48 115/80 Pulse: 70 68 66 Temp: 98 ??F 99.6 ??F 99.6 ??F 99.4 ??F Resp: 20 20 20 Weight: Intake/Output Summary (Last 24 hours) at 03/09/12 0733 Last data filed at 03/08/12 2214 Gross per 24 hour Intake 360 ml Output 0 ml Net 360 ml Physical Exam General appearance: alert, cooperative, no distress Lungs: chest movement normal and symmetric Abdomen: soft without mass, non-tender, with normal bowel sounds Head: Right evangelical: overall erythema has improved. Some induration. Small area of black tissue Extremities: no clubbing, cyanosis or edema Assessment/Plan 17 yo M on chronic immunosuppression for liver txp at age 3 with right temporal cellulitlis -Cont IV clindamycin -Will discuss with attending Ria Romero MD 03/09/2012 7:32 AM * Ro Luis RN - 03/08/2012 10:22 PM CDT [id number]: No significant events this shift. * Rene James MD - 03/08/2012 9:58 PM CDT Saw Pt at bedside. No complaints at this time. General: No acute distress Right temporal region: erythematous, indurated, black necrotic region lateral to Right eye. Wound unchanged per family and pt since presentation A/P 17 y/o s/p liver Txp on immunosuppressants with right temporal region cellulitis s/p pimple popping. -cont IV Abx Rene James MD 03/08/2012 10:01 PM documented in this encounter H&P Notes * Tesha Naik MD - 03/09/2012 10:31 PM CDT Pediatric Attending Admission Note Admit Date: 03/08/2012 5:07 PM I have interviewed the patient/family and examined this patient. I have reviewed and confirmed/revised the findings of the resident. My findings (santana elements and supplemental information) are as follows: Chief Complaint Redness and swelling near right eye History of Present Illness Beka Nichols is a 17 y.o. male with history of hypogammaglobulinemia, liver transplant on Tacrolimus, and low platelets (per mother's report). A few days ago, patient popped a pimple then an area of redness developed. Over the past few days, it spread to involve the eye, and swelling worsened this morning, prompting the ER visit. There was tenderness and warmth as well. Pt had been afebrile. Normal appetite. Denied change to vision or pain with occular movement. No nausea or vomiting. Patient's sister has frequent MRSA boils. Pt does not have a personal history of previous skin infections resembling this one. Labs checked in ER reassuring. Surgery evaluated pt due to possible subcutaneousabscess seen on ultrasound, however did not think drainage necessary. 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 Exam BP 106/62 Pulse 72 Temp 99.6 ??F Resp 20 Wt 54.8 kg (120 lb 13 oz) BMI 18.92 kg/m2 General: Alert, nad Skin: Scab lateral to the right eye with minimal surrounding erythema and swelling Neck: exceptionally large, mildly tender cervical and submandibular swelling. Lungs: CTA bilaterally Heart: RRR w/o murmur Abd: soft, nt, nd, +bs Lab/Other Information Uric acid and LDH nl, CBC is unremarkable, bld cx pending Active Hospital Problems Diagnoses Date Noted ??? Cellulitis and abscess of face 03/08/2012 Left upper face, involvement of upper and lower eye lids, area of induration, no fluctuance. Normaleye exam. Afebrile. Blood culture pending. CBC was reassuring. Ultrasound suggested subcutaneous abscess. Surgery evaluated pt in ED and did not think drainage necessary. No evidence of involvement of the intraorbital structures. Started Clindamycin 600mg IV q8hr initially, with rapid clinical improvement changed to PO. ??? Lymphadenopathy 03/08/2012 Many small lymph nodes along the anterior cervical chain. Left sided submandibular mass at the angle of mandible, with bumpy surface, nontender. CBC, LDH and Uric acid levels reassuring and CXR does not demonstrate mediastinal lymphadenopathy. Plan: - Follow up with Dr. Chavez in Heme/Onc in one week. ??? Hypogammaglobulinemia 02/17/2010 Receives IVIG q6wks. Received infusion in the 03/09 prior to discharge. See resident's H&P further details. Tesha Naik MD [phone] CC: Vilma Spangler MD [phone] [id number] / [facility] [id number] * Rossy Wheatley MD - 03/08/2012 7:39 PM CDT Pediatric Resident Admission Note Admit Date: 03/08/2012 5:07 PM Chief Complaint Skin infection History of Present Illness Beka Nichols is a 17 y.o. male with history of hypogammaglobulinemia, liver transplant at the ageof 4years on Tacrolimus, and low platelets (per mother's report). Few days ago, patient popped a pimple. Subsequently, an area of redness developed. Over the past few days, it spread to involve the eye, and swelling worsened this morning, prompting the ER visit. There is tenderness and warmth as well. Pt has been afebrile. Normal appetite. Denies change to vision or pain with occular movement. Nonausea or vomiting. Patient's sister has frequent MRSA boils. Pt does not have a personal history of previous skin infections resembling this one. Labs checked in ER reassuring. Surgery evaluated pt due to possible subcutaneous abscess seen on ultrasound, however did not think drainage necessary. Past Medical History No history on file. Past Medical History Diagnosis Date ??? ITP (idiopathic thrombocytopenic purpura) ??? Platelet disorder ??? Hx of liver transplant 1998 ??? 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 Past Surgical History Procedure Date ??? Liver transplant 1998 Immunizations Immunization status: stated as current, but no records available. Allergies No Known Allergies Family History Family History Problem Relation Age of Onset ??? Cancer Mother ??? Diabetes Sister ??? Cancer Maternal Grandmother ??? Cancer Maternal Grandfather ??? Hypertension Paternal Grandmother ??? Rheumatological Disease Paternal Grandfather ??? Allergy (Severe) Neg Hx ??? Anesthesia Reaction Neg Hx ??? Arrhythmia Neg Hx ??? Asthma Neg [...] narrative on file Review of Systems Constitutional: Negative for fever Eyes: Positive for redness on right. Negative for vision changes, double vision, or drainage ENT: Nose: Negative for congestion Mouth/Throat: Negative for sore throat Respiratory: Negative for wheezing, acute cough and shortness of breath Cardiovascular: Negative for chest pain and dyspnea on exertion Gastrointestinal: Negative for nausea, vomiting, abdominal pain, diarrhea Genitourinary: male Negative for dysuria Skin: Positive for cellulitis on the face Hematologic/Lymphatic: Positive for low platelets Musculoskeletal: Negative for pain and swelling Neurological: Negative for headaches, dizziness, diplopia Allergy/Immunology: Positive for hypogammaglobulinemia Exam Vitals BP: 96/48 mmHg (03/08/121849) Temp: 99.6 ??F (03/08/12 2105) Pulse: 70 (03/08/121849) Resp: 20 (03/08/121849) Height: 170.2 cm (5' 7 ) (03/08/12 1808) Weight: 54.8 kg (120 lb 13 oz) (03/08/12 1147) General: well appearing, non-toxic, well-hydrated Head: NC/AT Eyes: right eye lids are erythematous and edematous. Pain with light palpation. Able to open and close eyelids fully. No drainage seen. EOMI bilat. No pain with occular movement. No diplopia or blurry vision. Oropharynx: moist mucous membranes, no pharyngeal erythema, no tonsilar enlargement Neck: supple, non-tender, with full ROM. Several lymph nodes palpable along the anterior cervical chain on bilat neck. A large mass palpable at the mandibular angle, which has fluctuated in size fromtime to time. No tenderness in any of the lymph nodes. Cardiovascular: regular rate and rhythm, normal S1 and S2, no murmurs Chest: breath sounds symmetrical without rales or wheezes Abdomen: soft, non-tender, non-distended and no hepatosplenomegaly or masses Musculoskeletal: No clubbing, cyanosis or edema Skin: left temporal region involvement as well as upper and lower eyelids. Area of induration palpable but no fluctuance. Neuro: alert, oriented, normal speech, no focal findings or movement disorder noted Labs/Objective CBC normal. Blood culture pending. Ultrasound suggest subcutaneous abscess. Active Hospital Problems Diagnoses Date Noted ??? Cellulitis and abscess of face 03/08/2012 Left upper face, involvement of upper and lower eye lids, area of induration, no fluctuance. Normaleye exam. Afebrile. Blood culture pending. CBC reassuring. Ultrasound suggest subcutaneous abscess. Surgery evaluated pt. Did not think drainage necessary. Most likely preseptal cellulitis only without involvement of the intraorbital structures. Plan: - Clindamycin 600mg IV q8hr. - PO ad deonte. - May give tylenol for pain. ??? Lymphadenopathy 03/08/2012 Many small lymph nodes along the anterior cervical chain. Right sided submandibular mass at the angle of mandible, with bumpy surface, nontender. questionable node vs. Parotid gland swelling vs. Tooth abscess. CBC reassuring. Plan: - Will discuss with team in the morning regarding image studies. ??? Hypogammaglobulinemia 02/17/2010 Receives IVIG q6wks. Next infusion due on 03/09/12. Discussed with Dr. Chavez on admission. Plan: - Will likely receive infusion in the morning, or prior to discharge. Usual dose is 500mg/kg run over 3 hours. Rossy Wheatley MD [phone] CC: Vilma Spangler MD [phone] [address] * Tesha Naik MD - 03/08/2012 7:39 PM CDT Attending Physician Supervisory Statement I have interviewed the patient/family and examined this patient. Please see my H&P dated 03/09/2012. I have reviewed and confirmed the findings of the resident. Tesha Naik MD * Сергей Figueredo MD - 03/08/2012 2:44 PM CDT Pediatric General Surgery History and Physical Patient's Primary Care Physician: Vilma Spangler MD Name: Beka Nichols Age: 17 y.o. Sex: male Admit Date: 03/08/2012 11:27 AM Chief Complaint/History of Present Illness 17 yo male with history of liver transplant at 3 years of age who presents with painful erythematous swelling of right evangelical area that began yesterday evening. Two days prior Beka popped a pimple in that area and it began to swell. By the yesterday it began to expand and become more painful. Last night and today he had fevers measured in the 100s. He has had no chills, nausea, vomiting. He does not have a history of abscesses. He takes Prograf and has monthly infusions of IVIG. He notes increased tearing in the right eye, but no pain with or without occular movements. He denies sinus congestion or changes in vision in either eye. Past Medical History Diagnosis Date ??? ITP (idiopathic thrombocytopenic purpura) ??? Platelet disorder Past Surgical History Procedure Date ??? Liver transplant 1998 Family History Problem Relation Age of Onset ??? Cancer Mother ??? Diabetes Sister ??? Cancer Maternal Grandmother ??? Cancer Maternal Grandfather ??? Hypertension Paternal Grandmother ??? Rheumatological Disease Paternal Grandfather ??? Allergy (Severe) Neg Hx ??? Anesthesia Reaction Neg Hx ??? Arrhythmia Neg Hx ??? Asthma Neg [...] ??? Drug Use: No ??? Sexually Active: (Not in a hospital admission) No Known Allergies Review of Systems General: positive for fevers Eyes: negative for blurred vision, positive for right scleral injection ENT: negative for sore throat Cardiovascular: negative for chest pain Respiratory: negative for SOB GI: negative for nausea or vomiting : negative for dysuria, urethral discharge Neurologic: negative for dizziness Endocrine: negative heat or cold intolerance Musculoskeletal: negative for myalgias Skin: negative for rash or skin changes elsewhere All other systems reviewed and were negative. Exam Vitals: 03/08/12 1147 03/08/12 1149 03/08/12 1420 BP: 130/86 Pulse: 84 72 Temp: 98.8 ??F 100 ??F Resp: 20 Weight: 54.8 kg (120 lb 13 oz) General appearance: No acute distress Head: Normocephalic, without trauma, erythematous swelling on right evangelical extending into hairline,back towards the right ear, and involving the skin inferior to the right eye. Small area of skin breakdown near site of previous pimple mentioned in history in center of eryethemic expansion. Eyes: sclera and conjunctiva clear to left eye, right eye shows sclera injection and increased tearing, no purulent discharge, EOMI bilaterally Ears: normal external ears, hearing to voice intact, TMs normal bilaterally Nose: nares open; no septal deviation is noted Throat: no mucous membrane abnormalities Neck: range of motion is intact, no masses, thyroid not enlarged, no adenopathy Lungs: breath sounds normal and symmetric; no rales or wheezes Heart: regular rhythm, normal S1 and S2, without murmurs, gallops or rubs Abdomen: soft without mass, non-tender Extremities: no clubbing, cyanosis or edema Circulation: <3 seconds cap refill Joints: ranges of motion normal without inflammation, effusion or deformity Skin: no rashes, abnormalities as noted above Neurologic: CN 2-12 grossly intact, moves all extremities Data Vitals: 03/08/12 1147 03/08/12 1149 03/08/12 1420 BP: 130/86 Pulse: 84 72 Temp: 98.8 ??F 100 ??F Resp: 20 Weight: 54.8 kg (120 lb 13 oz) No intake or output data in the 24 hours ending 03/08/12 1453 No labs today Assessment and Plan 17 yo male with history of liver transplant, autoimmune thrombocytopenia/neutropenia, on chronic Prograf therapy now with cellulitis and abscess seen on U/S. -Recommend admission to peds for IV antibiotics. -Patient is followed at [facility]. Dr. Chavez should be informed of patient's status as he is scheduled to receive an IVIG infusion at [facility] tomorrow. Сергей Figueredo MD 03/08/2012 4:22 PM * Nish Forde MD - 03/08/2012 2:44 PM CDT I reviewed the chart of this child, have seen and examined this patient and agree with above note as amended by me. documented in this encounter Consult Notes * Ai Torres RD/LD - 03/09/2012 9:31 AM CDTAssociated Order(s): IP CONSULT TO NUTRITIONAL SERV Patient has been evaluated by clinical nutrition and does not require nutrition intervention at this time. * Nish Forde MD - 03/08/2012 5:48 PM CDT Pediatric General Surgery History and Physical Patient's Primary Care Physician: Vilma Spangler MD Name: Beka Nichols Age: 17 y.o. Sex: male Admit Date: 03/08/2012 11:27 AM Chief Complaint/History of Present Illness 17 yo male with history of liver transplant at 3 years of age who presents with painful erythematous swelling of right evangelical area that began yesterday evening. Two days prior Beka popped a pimple in that area and it began to swell. By the yesterday it began to expand and become more painful. Last night and today he had fevers measured in the 100s. He has had no chills, nausea, vomiting. He does not have a history of abscesses. He takes Prograf and has monthly infusions of IVIG. He notes increased tearing in the right eye, but no pain with or without occular movements. He denies sinus congestion or changes in vision in either eye. Past Medical History Diagnosis Date ??? ITP (idiopathic thrombocytopenic purpura) ??? Platelet disorder Past Surgical History Procedure Date ??? Liver transplant 1998 Family History Problem Relation Age of Onset ??? Cancer Mother ??? Diabetes Sister ??? Cancer Maternal Grandmother ??? Cancer Maternal Grandfather ??? Hypertension Paternal Grandmother ??? Rheumatological Disease Paternal Grandfather ??? Allergy (Severe) Neg Hx ??? Anesthesia Reaction Neg Hx ??? Arrhythmia Neg Hx ??? Asthma Neg [...] ??? Drug Use: No ??? Sexually Active: (Not in a hospital admission) No Known Allergies Review of Systems General: positive for fevers Eyes: negative for blurred vision, positive for right scleral injection ENT: negative for sore throat Cardiovascular: negative for chest pain Respiratory: negative for SOB GI: negative for nausea or vomiting : negative for dysuria, urethral discharge Neurologic: negative for dizziness Endocrine: negative heat or cold intolerance Musculoskeletal: negative for myalgias Skin: negative for rash or skin changes elsewhere All other systems reviewed and were negative. Exam Vitals: 03/08/12 1147 03/08/12 1149 03/08/12 1420 BP: 130/86 Pulse: 84 72 Temp: 98.8 ??F 100 ??F Resp: 20 Weight: 54.8 kg (120 lb 13 oz) General appearance: No acute distress Head: Normocephalic, without trauma, erythematous swelling on right evangelical extending into hairline,back towards the right ear, and involving the skin inferior to the right eye. Small area of skin breakdown near site of previous pimple mentioned in history in center of eryethemic expansion. Eyes: sclera and conjunctiva clear to left eye, right eye shows sclera injection and increased tearing, no purulent discharge, EOMI bilaterally Ears: normal external ears, hearing to voice intact, TMs normal bilaterally Nose: nares open; no septal deviation is noted Throat: no mucous membrane abnormalities Neck: range of motion is intact, no masses, thyroid not enlarged, no adenopathy Lungs: breath sounds normal and symmetric; no rales or wheezes Heart: regular rhythm, normal S1 and S2, without murmurs, gallops or rubs Abdomen: soft without mass, non-tender Extremities: no clubbing, cyanosis or edema Circulation: <3 seconds cap refill Joints: ranges of motion normal without inflammation, effusion or deformity Skin: no rashes, abnormalities as noted above Neurologic: CN 2-12 grossly intact, moves all extremities Data Vitals: 03/08/12 1147 03/08/12 1149 03/08/12 1420 BP: 130/86 Pulse: 84 72 Temp: 98.8 ??F 100 ??F Resp: 20 Weight: 54.8 kg (120 lb 13 oz) No intake or output data in the 24 hours ending 03/08/12 1748 No labs today Assessment and Plan 17 yo male with history of liver transplant, autoimmune thrombocytopenia/neutropenia, on chronic Prograf therapy now with cellulitis and abscess seen on U/S. -Recommend admission for IV antibiotics. -Patient is followed at [facility]. Dr. Chavez should be informed of patient's status as he is scheduled to receive an IVIG infusion at [facility] tomorrow. Nish Forde MD 03/08/2012 5:48 PM documented in this encounter ED Notes * Tosha Brumfield RN - 03/08/2012 3:24 PM CDT Awaiting orders from surgery. * Tosha Brumfield RN - 03/08/2012 2:21 PM CDT Pt states right eye hurting more 03/10. tylenol given. Awaiting orders. NPO. * Germain Galindo EMT - 03/08/2012 1:35 PM CDT Walked pt. And parent to ultrasound. * Ariadne Kelly MD - 03/08/2012 12:17 PM CDT Images from the original note were not included. EMERGENCY DEPARTMENT 03/08/[address] Vilma Spangler MD We had the pleasure of caring for your patient, Beka Nichols in our emergency department on 03/08/2012. A note from the provider(s) who cared for your patient is attached. Should you wish to access any laboratory results, please call . Should you wish to access any radiology results, please call , option 3. In addition, you can access patient information 24 hours a day, from any computer, through Jir[employer], the online version of our electronic medical record. If you would like to use this service, please call Ana Echols, Connectivity Coordinator, at . We appreciate the opportunity to care for your patients. If you would like additional information, please call the emergency department directly at . Sincerely, Ariadne Kelly MD Division of Emergency Medicine [facility] [place], [place] [facility] [place]IGN[facility] EMERGENCY DEPARTMENT Provider contact with the patient: 03/08/2012 12:17 PM Beka Nichols [id number] [facility] EMERGENCY DEPT History Chief Complaint Patient presents with ??? Cellulitis cellulitis R eye. swellen nodes.has IVIG infusion scheduled for tomorrow. Abscess The history is provided by the patient. This is a new problem. The current episode started yesterday. The problem occurs occasionally. The problem has been rapidly worsening. The abscess location is on the face.The problem is moderate. The abscess is characterized by redness and painfulness. The patient was exposed to MRSA. Pertinent negatives for relevant past medical history are no abscess.His tetanus status is UTD. He has tried squeezing for the symptoms. The treatment provided no relief. Past Medical History Diagnosis Date ??? ITP (idiopathic thrombocytopenic purpura) ??? Platelet disorder Past Surgical History Procedure Date ??? Liver transplant 1999 History Social History ??? Marital Status: Single Spouse Name: N/A Number of Children: N/A ??? Years of Education: N/A Occupational History ??? Not on file. Social History Main Topics ??? Smoking status: Never Smoker ??? Smokeless tobacco: Never Used ??? Alcohol Use: No ??? Drug Use: No ??? Sexually Active: Other Topics Concern ??? Not on file Social History Narrative ??? No narrative on file Medications Current Outpatient Prescriptions Medication Sig Dispense Refill ??? tacrolimus (PROGRAF) 1 MG capsule Take 1 mg by mouth 2 times daily. Review of Systems Review of Systems Constitutional: Negative for fatigue. HENT: Positive for facial swelling. Negative for ear pain. Eyes: Negative for pain and redness. Respiratory: Negative. Cardiovascular: Negative. Gastrointestinal: Negative. Genitourinary: Negative. Musculoskeletal: Negative. BP 130/86 Pulse 84 Temp 98.8 ??F Wt 120 lb 13 oz (54.8 kg) Physical Exam Physical Exam Constitutional: He appears well-developed and well-nourished. HENT: Right Ear: External ear normal. Left Ear: External ear normal. Swelling and erythema of right evangelical, periorbital area. Scabbed abscess lateral to right eye. Eyes: Conjunctivae and EOM are normal. Pupils are equal, round, and reactive to light. Right eye exhibits no discharge. Left eye exhibits no discharge. Neck: Normal range of motion. Neck supple. Cardiovascular: Normal rate, regular rhythm and normal heart sounds. Pulmonary/Chest: Effort normal and breath sounds normal. Abdominal: Soft. Procedures Procedures EKG Interpretation Lab/SPO2 Interpretation Progress Notes: I have personally seen and examined this patient. I have fully participated in the care of this patient. I have reviewed all pertinent clinical information, including history, physical exam and plan. I have reviewed the nurses notes. I have reviewed available labs and radiographic studies. ED Course: discussed with surgery who feel there is no abscess to drain. Discussed with oncology, will admit for IV antibiotics and for IVIG. Medical Decision Making I have reviewed the: Nursing Notes and Vitals. I have interpreted the following results: Ultrasound. I have discussed the case with Surgery and Oncology. Clinical Impression: facial cellulitis, S/P liver transplant. * Tosha Brumfield RN - 03/08/2012 12:12 PM CDT Accepted care of pt. Pt awake, alert, states has minimal right eye pain; right eye red, swollen to right face; scabbed sore noted to right evangelical area. * Adriane Wills MD - 03/08/2012 12:04 PM CDT Images from the original note were not included. EMERGENCY DEPARTMENT 03/08/[address] Vilma Spangler MD We had the pleasure of caring for your patient, Beka Nichols in our emergency department on 03/08/2012. A note from the provider(s) who cared for your patient is attached. Should you wish to access any laboratory results, please call . Should you wish to access any radiology results, please call , option 3. In addition, you can access patient information 24 hours a day, from any computer, through [employer], the online version of our electronic medical record. If you would like to use this service, please call Ana Echols, Connectivity Coordinator, at . We appreciate the opportunity to care for your patients. If you would like additional information, please call the emergency department directly at . Sincerely, Adriane Wills MD Division of Emergency Medicine [facility], [place] [facility] [place]IGN[facility] EMERGENCY DEPARTMENT Provider contact with the patient: 03/08/2012 12:04 PM Beka Nichols [id number] [facility] EMERGENCY DEPT History Chief Complaint Patient presents with ??? Cellulitis cellulitis R eye. swellen nodes.has IVIG infusion scheduled for tomorrow. HPI 17 year old male with a pimple that first appeared three days ago. Patient popped it and then it has continued to swell and looks infected . Went to go see primary physician today and they were in touch with the [facility] who recommended he come in for evaluation. Temperature to 100 the evening prior to admission. Hx of skin infection on chin and neck in past which resolved with PO antibiotics (about one year ago). He thinks they may have cultured his lesions previously, but he is not sure. Overall he is feeling ok. Appetite is ok. No nausea, vomiting. Diarrhea for two days (>5 stool yesterday). No runny nose, cough. He is due for IVIG tomorrow. He has also noticed swollen cervical lymph nodes that are tender for one week. No sore throat. His sister is a diabetic and had a boil on her buttock last week. They are positive for MRSA. Past Medical History Diagnosis Date ??? ITP (idiopathic thrombocytopenic purpura) ??? Platelet disorder Past Surgical History Procedure Date ??? Liver transplant: non A, non B, hepatitis 1999 History Social History ??? Marital Status: Single Spouse Name: N/A Number of Children: N/A ??? Years of Education: N/A Occupational History ??? Not on file. Social History Main Topics ??? Smoking status: Never Smoker ??? Smokeless tobacco: Never Used ??? Alcohol Use: No ??? Drug Use: No ??? Sexually Active: Other Topics Concern ??? Not on file Social History Narrative ??? No narrative on file Medications Current Outpatient Prescriptions Medication Sig Dispense Refill ??? tacrolimus (PROGRAF) 1 MG capsule Take 1 mg by mouth 2 times daily. Review of Systems Review of Systems Constitutional: Negative for fever (tmax 100) and appetite change. HENT: Positive for facial swelling. Negative for congestion, sore throat, rhinorrhea, neck pain andneck stiffness. Eyes: Positive for discharge (right eye watering) and redness. Respiratory: Negative for cough. Cardiovascular: Negative for chest pain. Gastrointestinal: Positive for diarrhea. Negative for nausea, vomiting, abdominal pain and constipation. Genitourinary: Negative for dysuria and decreased urine volume. Musculoskeletal: Negative. Skin: Positive for wound. Negative for rash. Neurological: Negative for headaches. Hematological: Positive for adenopathy (cervical, tender). Does not bruise/bleed easily. Psychiatric/Behavioral: Negative. BP 130/86 Pulse 84 Temp 98.8 ??F Wt 120 lb 13 oz (54.8 kg) Physical Exam Physical Exam Constitutional: He is oriented to person, place, and time. He appears well- developed and well-nourished. No distress. HENT: Head: Normocephalic and atraumatic. Nose: Nose normal. Mouth/Throat: Oropharynx is clear and moist. No oropharyngeal exudate. Eyes: EOM are normal. Pupils are equal, round, and reactive to light. Right eye exhibits discharge.Left eye exhibits no discharge. Swelling of right eyelids and conjunctival erythema of right Neck: Normal range of motion. Neck supple. Cardiovascular: Normal rate, regular rhythm and normal heart sounds. No murmur heard. Pulmonary/Chest: Effort normal and breath sounds normal. No respiratory distress. Abdominal: Soft. He exhibits no distension and no mass. There is no tenderness. There is no guarding. Past surgical scar Musculoskeletal: He exhibits no edema. Lymphadenopathy: He has cervical adenopathy (tender, rubbery, mobile, 3x3cm LN on left, small shotty LAD on right). Neurological: He is alert and oriented to person, place, and time. No cranial nerve deficit. Skin: Skin is warm and dry. No rash noted. On right evangelical patient with 2x3cm area of induration with surrounding erythema and central eschar.Some tunneling of induration towards eyebrow Psychiatric: He has a normal mood and affect. His behavior is normal. Procedures Procedures EKG Interpretation Lab/SPO2 Interpretation Progress Notes ED Course Ultrasound of face: consistent with abscess Last PO at 11 am Surgery consulted: does not want to I&D at this time. Spoke with Dr. Chavez from Heme/Onc- recommended CBC and IgG level as patient was to come in tomorrow for IVIG- if patient admitted, can give IVIG in house D/w Dr. Kelly- will admit patient for IV antibiotics and observation. Medical Decision Making I have reviewed the: Nursing Notes and Vitals. I have interpreted the following results: Ultrasound. I have discussed the case with Surgery and Oncology. Clinical Impression Encounter Diagnosis Name Primary? Cellulitis, facial/preseptal documented in this encounter Miscellaneous Notes * Miscellaneous Scans - Document, Scanned - 06/16/2012 1:52 PM CDT * Miscellaneous Scans - Document, Scanned - 06/13/2012 8:51 AM CDT * Miscellaneous Scans - Document, Scanned - 03/16/2012 9:14 AM CDT documented in this encounter Plan of Treatment Not on file documented as of this encounter Procedures Procedure Name Priority Date/Time Associated Diagnosis Comments XR CHEST 2VW Routine 03/09/2012 3:09 PM CDT Hypogammaglobulinem ia (HCC) Cellulitis and abscess of face NADINE-BORREGO VIRUS PCR QUALITATIVE Routine 03/09/2012 2:40 PM CDT LDH BLOOD Routine 03/09/2012 2:40 PM CDT IP CONSULT TO NUTRITIONAL SERV Routine 03/09/2012 9:31 AM CDT CULTURE BLOOD Timed 03/08/2012 6:05 PM CDT CBC W MANUAL DIFFERENTIAL STAT 03/08/2012 4:15 PM CDT IGG BLOOD STAT 03/08/2012 4:15 PM CDT US SOFT TISSUE HEAD NECK STAT 03/08/2012 1:44 PM CDT Cellulitis documented in this encounter Results * XR CHEST PA AND LATERAL (03/09/2012 3:09 PM CDT) Anatomical Region Laterality Modality Chest Radiographic Shilpi ging 03/09/2012 3:43 PM CDT Impressions 03/09/2012 3:43 PM CDT No evidence of focal infiltrate. Status post liver transplant. Narrative 03/09/2012 3:43 PM CDT Two views of the chest performed 03/09/2012. History: Hypogammaglobulinemia. Status post liver transplant. Frontal and lateral views of the chest were obtained and are compared to prior study of January 22, 2010. Multiple metallic clips are again seen in the right upper quadrant consistent with prior liver transplant. The lungs are clear. There is no evidence of pleural effusion or pneumothorax. The heart is within normal limits in size and the peripheral pulmonary vascularity is within normal limits. The visualized bony structures are intact. Procedure Note Jodi Foreman MD - 03/09/2012 Two views of the chest performed 03/09/2012. History: Hypogammaglobulinemia. Status post liver transplant. Frontal and lateral views of the chest were obtained and are compared to prior study of January 22, 2010. Multiple metallic clips are again seen in the right upper quadrant consistent with prior liver transplant. The lungs are clear. There is no evidence of pleural effusion or pneumothorax. The heart is within normal limits in size and the peripheral pulmonary vascularity is within normal limits. The visualized bony structures are intact. IMPRESSION No evidence of focal infiltrate. Status post liver transplant. Rossy Wheatley MD DIAGNOSTIC IMAGING O RDERABLES * LDH BLOOD (03/09/2012 2:40 PM CDT) Pathologist [facility] LDH [phone] Units/L [facility] Blood specimen (specimen) BLOOD SPECIMEN / Unknown 03/09/2012 2:40 PM CDT 03/09/2012 2:49 PM CDT Rossy Wheatley MD LAB - CHEMISTRY MACIE HERNÁNDEZ [facility] Organization Address City/State/[facility] Co de Phone Number [facility] [address] [place] [address] * NADINE-BAR VIRUS PCR QUALITATIVE (03/09/2012 2:40 PM CDT) Nadine-Borrego Virus PCR EBV DNA Detected Not Detect [facility] Comment EBV PCR [facility] Comment: This assay has a [...] ??EBV levels can vary by speimen type: [facility] uses whole blood which [...] characteristics determined by the Virology Laboratory of [facility]. ??It has not been cleared or approved [...] testing. Comment 6379 copies/ ml whole blood [facility] Blood specimen (specimen) BLOOD SPECIMEN / Unknown 03/09/2012 2:40 PM CDT 03/09/2012 2:49 PM CDT Rossy Wheatley MD LAB - MICROBIOLOGY O SARAH [facility] [address] [facility] [place] [address] * NUTRITION CONSULT (03/09/2012 9:31 AM CDT) Narrative Ai Torres RD/DELBERT - 03/09/2012 9:31 AM CDT [place] ? 03/09/2012 ??9:31 AM Patient has been evaluated by clinical nutrition and does not require nutrition intervention at this time. Procedure Note Ai Torres, CALLIE/DELBERT - 03/09/2012 9:31 AM CDT Patient has been evaluated by clinical nutrition and does not requirenutrition intervention at this time. Tesha Naik MD INPATIENT ANCILLARY CONSULT * CULTURE BLOOD (03/08/2012 6:05 PM CDT) Result [facility] Comment: Final No growth Blood specimen (specimen) PERIPHERAL BLOOD / Unknown 03/08/2012 6:05 PM CDT 03/08/2012 6:08 PM CDT Narrative [facility] - 03/14/2012 10:47 AM CDT Performed By [facility];[address] [place] [address];[place] [address] Adriane Michaels MD LAB - MICROBIOLOGY ORDERABLES Performing Organization Address [facility] Co de Phone Number [facility] [address] [place] [address] * (ABNORMAL) IGG BLOOD (03/08/2012 4:15 PM CDT) Pathologist [facility] IgG [phone] mg/dl [facility] Blood specimen (specimen) BLOOD SPECIMEN / Unknown 03/08/2012 4:15 PM CDT 03/08/2012 4:19 PM CDT Adriane Michaels MD LAB - CHEMISTRY OR DERABLES Performing Organization Address [facility] Co de Phone Number [facility] [address] [place] [address] * (ABNORMAL) CBC W MANUAL DIFFERENTIAL (03/08/2012 4:15 PM CDT) Pathologist [facility] WBC 9.54 4.5 - 11.0 K/cumm [facility] RBC 4.95 4.50 - 5.90 mill/cumm [facility] Hemoglobin 15.8 13.5 - 17.5 gm/dl [facility] Hematocrit 44.2 41.0 - 53.0 % [facility] MCV 89.3 80.0 - 100.0 cu microns [facility] MCH 31.9 26.0 - 34.0 uug [facility] MCHC 35.7 31.0 - 37.0 % [facility] RDW 11.6 % [facility] MPV 10.2 fl [facility] Platelet Count 147 100 - 400 K/cumm [facility] Comment Manual Diff Done [facility] Band % Manual 3 % [facility] Neutrophils % Manual 69 43 - 70 % [facility] Lymphocytes % Manual 10(L) 22 - 41 % [facility] Monocytes % Manual 12 2 - 13 % [facility] Eosinophils % Manual 1 0 - 6 % [facility] Atypical Lymphocyte % Manual 5 % [facility] RBC Morphology Normal [facility] BLOOD SPECIMEN / Unknown 03/08/2012 4:15 PM CDT 03/08/2012 4:19 PM CDT Adriane Michaels MD LAB - HEMATOLOGY O RDERABLES Performing Organization Address City/State/[facility] Co de Phone Number [facility] [address] [place] [address] * US HEAD NECK TISSUES B - [...] subcutaneous abscess. Adriane Michaels MD US ORDERABLES documented in this encounter Visit Diagnoses Diagnosis Cellulitis Cellulitis and abscess of unspecified site Preseptal cellulitis Abscess of eyelid Hypogammaglobulinemia (HCC) Hypogammaglobulinaemia, unspecified Cellulitis and abscess of face Cellulitis and abscess of face Hypogammaglobulinemia (HCC) Hypogammaglobulinaemia, unspecified Lymphadenopathy Enlargement of lymph nodes documented in this encounter Administered Medications Inactive Administered Medications - up to 3 most recent administrations Medication Order MAR Action Action Date Dose Rate Site 0.9% NaCl injection 2 mL 2 mL, Intracatheter, PRN, Other, PIV flush, Starting on Wed03/08/12 at 1851, Until Wed03/10/12 at 0658, PIV flush - Use positive pressure technique for last 0.5 ml. $ Given 03/09/2012 8:29 AM CDT 2 mL $ Given 03/09/2012 3:10 AM CDT 2 mL acetaminophen (TYLENOL) tablet 650 mg 650 mg, Oral, ONCE, 1 dose, On Wed03/08/12 at 1445, Maximum allowable Acetaminophen amount = 4 Grams (4000 mg) / 24 hours. $ Given 03/08/2012 2:19 PM CDT 650 mg acetaminophen (TYLENOL) tablet 650 mg 650 mg, Oral, EVERY 4 HOURS PRN, Pain, Starting on Wed03/08/12 at 2043, Until Brenda 03/10/12 at 0658, Maximum allowable Acetaminophen amount = 4 Grams (4000 mg) / 24 hours. $ Given 03/08/2012 9:03 PM CDT 650 mg clindamycin (CLEOCIN) pediatric IV 600 mg 600 mg, at 100 mL/hr, Intravenous, EVERY 8 HOURS, First dose on Wed03/08/12 at 1800, Until Discontinued, Diluted in D5W $ Given 03/09/2012 5:55 PM CDT 600 mg 100 mL/hr $ Given 03/09/2012 11:50 AM CDT 600 mg 100 mL/hr $ Given 03/09/2012 2:31 AM CDT 600 mg 100 mL/hr diphenhydrAMINE (BENADRYL) tablet 50 mg 50 mg, Oral, ONCE, 1 dose, On Wed03/09/12 at 0945, Pre treatment for IVIG $ Given 03/09/2012 9:37 AM CDT 50 mg immune globulin (human) (PRIVIGEN) 10 % infusion 27,500 mg 27,500 mg (500 mg/kg ? 54.8 kg), Intravenous, ONCE, 1 dose, On Wed03/09/12 at 0730 $ Given 03/09/2012 9:20 AM CDT 27,500 mg tacrolimus (PROGRAF) capsule 1 mg 1 mg, Oral, 2 TIMES DAILY, First dose on Wed03/08/12 at 2030, Until Discontinued, Do not crush or open capsules and avoid inhalation and direct contact with skin or mucous membrane. $ Given 03/09/2012 8:28 AM CDT 1 mg $ Given 03/08/2012 8:32 PM CDT 1 mg documented in this encounter Active and Recently Administered Medications Times are shown in CDT. Scheduled Medication Order 03/07/2012 03/08/2012 03/09/2012 acetaminophen (TYLENOL) tablet 650 mg (COMPLETED) 650 mg, Oral, ONCE, 1 dose, On Wed03/08/12 at 1445, Maximum allowable Acetaminophen amount = 4 Grams (4000 mg) / 24 hours. 1419 ($ Given - Provider: Tosha Brumfield RN) clindamycin (CLEOCIN) pediatric IV 600 mg (CANCELED) 600 mg, at 100 mL/hr, Intravenous, EVERY 8 HOURS, First dose on Wed03/08/12 at 1800, Until Discontinued, Diluted in D5W 1811 ($ Given - Provider: Tosha Brumfield RN)1841 (Due: Rx Stopped - Provider: Tosha Brumfield RN) 0231 ($ Given - Provider: Sarah Maurice RN)0259 (Rx Stopped - Provider: Sarah Maurice, SHAILESH)1150 ($ Given - Provider: Ro Luis, SHAILESH)1220 (Rx Stopped - Provider: Ro Luis, SHAILESH)1755 ($ Given - Provider: Ro Luis, SHAILESH)1825 (Rx Stopped - Provider: Ro Luis, RN) diphenhydrAMINE (BENADRYL) tablet 50 mg (COMPLETED) 50 mg, Oral, ONCE, 1 dose, On Wed03/09/12 at 0945, Pre treatment for IVIG 0937 ($ Given - Provider: Ro Luis, RN) immune globulin (human) (PRIVIGEN) 10 % infusion 27,500 mg (COMPLETED) 27,500 mg (500 mg/kg ? 54.8 kg), Intravenous, ONCE, 1 dose, On Wed03/09/12 at 0730 0920 ($ Given - Provider: Ro Luis, RN) tacrolimus (PROGRAF) capsule 1 mg (CANCELED) 1 mg, Oral, 2 TIMES DAILY, First dose on Wed03/08/12 at 2030, Until Discontinued, Do not crush or open capsules and avoid inhalation and direct contact with skin or mucous membrane. 2031 ($ Given - Provider: Ro Luis, RN) 08 ($ Given - Provider: Ro Luis, RN) PRN Medication Order 03/07/2012 03/08/2012 03/09/2012 0.9% NaCl injection 2 mL (CANCELED) 2 mL, Intracatheter, PRN, Other, PIV flush, Starting on Wed03/08/12 at 1851, Until Brenda 03/10/12 at 0658, PIV flush - Use positive pressure technique for last 0.5 ml. 0310 ($ Given - Provider: Kaley Lowery RN)0829 ($ Given - Provider: Ro Luis, SHAILESH) acetaminophen (TYLENOL) tablet 650 mg (CANCELED) 650 mg, Oral, EVERY 4 HOURS PRN, Pain, Starting on Wed03/08/12 at 2043, Until Brenda 03/10/12 at 0658, Maximum allowable Acetaminophen amount = 4 Grams (4000 mg) / 24 hours. 210 ($ Given - Provider: Ro Luis, RN) documented in this encounter Care Teams Ship Runner Relationship Specialty Start Date End Date Vilma Spangler MD [address] [place] [address] PCP - General 01/05/11 documented as of this encounter
--- OUTSIDE RECORDS SUMMARY | 2024-10-28 05:57 | XMS_ITS | Encounter Summary ---
Author Organization [facility] Address [address] [place] [address] Care Team Providers Care Body Builder Apprentice Name Role Phone Vilma Spangler MD Primary Care Provider [phone] Encounter Details Date Type Department Care Team (Late st Contact Info) Description 10/18/2012 7:43 AM FRIT MIXER - 10/18/2012 11:59 PM FRIT MIXER Hospital Encounter The [facility] at [address] [address] Philip Chavez MD [address] [place] [phone] Discharge Disposition: Home or Self Care Social [...] Reading Time Taken Comments Blood Pressure 102/60 10/18/2012 7:52 AM FRIT MIXER Pulse 81 10/18/2012 7:52 AM FRIT MIXER Temperature 36.2 ??C (97.1 ??F) 10/18/2012 7:52 AM CS T Respiratory Rate 16 10/18/2012 7:52 AM FRIT MIXER Oxygen Saturation 98% 10/18/2012 7:52 AM FRIT MIXER Inhaled Oxygen Concentration - - Weight 54.1 kg (119 lb 4.3 oz) 10/18/2012 7:52 A M FRIT MIXER Height 170 cm (5' 6.93 ) 10/18/2012 7:52 AM FRIT MIXER Body Mass Index 18.72 10/18/2012 7:52 AM FRIT MIXER documented in this encounter Medications at Time of Discharge Medication Sig Dispensed Refills Start Date End Date acetaminophen (TYLENOL) 325 MG tablet Take 325 mg by mouth every 4 hours as needed. Maximum allowable Acetaminophen amount = 4 Grams (4000 mg) / 24 hours. oxycodone-acetaminoph en (PERCOCET) 5-325 MG tablet Take 1 Tab by mouth every 4 hours as needed for Pain. 28 Tab 0 03/24/2012 10/27/2012 predniSONE (DELTASONE) 20 MG tablet Take 2 Tabs by mouth 2 times daily for 14 days. 56 Tab 0 10/18/2012 10/27/2012 tacrolimus (PROGRAF) 1 MG capsule Take 1 Cap by mouth 2 times daily. 60 Cap 6 03/14/2012 12/28/2012 documented as of this encounter Progress Notes * Dariela Winston RN - 10/18/2012 7:03 PM CST Arrived in clinic for scheduled visit and labs. Assessed and triaged per RN. Labs drawn right AC with #23 butterfly and sent. Examined per Dr. Chavez. [id number] Chavez notified and discussed options with Beka and Sister. Dr. Chavez will contact mom to discuss treatment plan. Discharged home ambulatory with sister. MIXER documented in this encounter Miscellaneous Notes * Miscellaneous Scans - Document, Scanned - 12/07/2012 9:21 AM CST MIXER * Miscellaneous Scans - Document, Scanned - 11/24/2012 12:31 AM CST MIXER documented in this encounter Plan of Treatment Not on file documented as of this encounter Procedures Procedure Name Priority Date/Time Associated Diagnosis Comments CBC W AUTO DIFFERENTIAL STAT 10/18/2012 8:16 AM FR[facility] MIXER Neutropenia associated with autoimmune disease (HCC) HEPATIC FUNCTION PANEL STAT 10/18/2012 8:16 AM FR[facility] MIXER Neutropenia associated with autoimmune disease (HCC) DIFFERENTIAL MANUAL Routine 10/18/2012 8 :16 AM [facility] Neutropenia associated with autoimmune disease (HCC) documented in this encounter Results * (ABNORMAL) HEPATIC FUNCTION PANEL (10/18/2012 8:16 AM [facility]) [facility] Alkaline Phosphatase 134 39 - 139 U/L 10/18/2012 8:43 AM [facility] ALT 65(H) 6 - 46 U/L 10/18/2012 8:43 AM [facility] AST 47(H) 8 - 42 U/L 10/18/2012 8:43 AM [facility] Protein Total 7.1 6.3 - 8.2 gm/dL 10/18/2012 8:43 AM [facility] Albumin 3.8 3.3 - 4.9 gm/dL 10/18/2012 8:43 AM [facility] Bilirubin Total 0.7 0.3 - 1.2 mg/dL 10/18/2012 8:43 AM [facility] Bilirubin Direct 0.24 0.11 - 0.64 mg/dL 10/18/2012 8:43 AM [facility] Blood specimen (specimen) BLOOD SPECIMEN / Unknown 10/18/2012 8:16 AM [facility] 10/18/2012 8:22 AM [facility] Philip Chavez MD LAB - CHEMISTRY O RDERABLES Performing Organization Address City/State/[facility] de Phone Number [facility] [address] [place] [address] * (ABNORMAL) CBC W AUTO DIFFERENTIAL (10/18/2012 8:16 AM [facility]) [facility] WBC 3.9(L) 4.4 - 10.7 x10^9/L 10/18/2012 8:33 AM [facility] RBC 4.69 3.80 - 5.40 x10^12/L 10/18/2012 8:33 AM [facility] Hemoglobin 14.5 12.0 - 17.6 g/dL 10/18/2012 8:33 AM [facility] Hematocrit 39.9 35.2 - 51.7 % 10/18/2012 8:33 AM [facility] MCV 87.2 80.7 - 98.3 fl 10/18/2012 8:33 AM [facility] MCH 31.7 26.7 - 34.0 pg 10/18/2012 8:33 AM [facility] MCHC 36.6(H) 30.8 - 35.9 gm/dL 10/18/2012 8:33 AM [facility] RDW-CV 13.7 12.1 - 14.9 % 10/18/2012 8:33 AM [facility] Neutrophils % 49 44 - 73 % 10/18/2012 8:33 AM [facility] Lymphocytes % 33 20 - 43 % 10/18/2012 8:33 AM [facility] Monocytes % 14(H) 5 - 13 % 10/18/2012 8:33 AM [facility] Eosinophils % 4 0 - 6 % 10/18/2012 8:33 AM [facility] Basophils % 0 0 - 2 % 10/18/2012 8:33 AM [facility] Immature Granulocytes 0.3 0 - 1 % 10/18/2012 8:33 AM [facility] Neutrophil Absolute 1.91(L) 2.01 - 7.14 x10^9/L 10/18/2012 8:33 AM [facility] Lymphocytes Absolute 1.27 1.07 - 3.94 x10^9/L 10/18/2012 8:33 AM [facility] Monocytes Absolute 0.56 0.26 - 1.07 x10^9/L 10/18/2012 8:33 AM [facility] Eosinophils Absolute 0.15 0 - 0.47 x10^9/L 10/18/2012 8:33 AM [facility] Basophils Absolute 0.01 0 - 0.08 x10^9/L 10/18/2012 8:33 AM [facility] Immature Granulocytes Absolute 0.01 0.00 - 0.06 x10^9/L 10/18/2012 8:33 AM [facility] Hematology Reflex Status Manual Diff to follow (none) 10/18/2012 8:33 AM [facility] Platelet Count 10(LL) 153 - 416 x10^9/L 10/18/2012 8:33 AM [facility] Blood specimen (specimen) BLOOD SPECIMEN / Unknown 10/18/2012 8:16 AM [facility] 10/18/2012 8:22 AM [facility] Philip Chavez MD LAB - HEMATOLOGY ORDERABLES Performing Organization Address [facility] Co de Phone Number [facility] [address] [place] [address] * (ABNORMAL) DIFFERENTIAL MANUAL (10/18/2012 8:16 AM FR[facility]) WBC Auto 3.9(L) 4.4 - 10.7 X(10)9/L 10/18/2012 8:44 AM [facility] Neutrophil % Manual 51 44 - 73 % 10/18/2012 8:44 AM [facility] Lymphocytes % Manual 28 20 - 43 % 10/18/2012 8:44 AM [facility] Monocytes % Manual 14(H) 5 - 13 % 10/18/2012 8:44 AM [facility] Eosinophils % Manual 4 0 - 6 % 10/18/2012 8:44 AM [facility] Atypical Lymphocyte % Manual 3(H) <=0 % 10/18/2012 8:44 AM [facility] Cells Counted 100 # cells 10/18/2012 8:44 AM [facility] Platelet Estimation Markedly decreased 10/18/2012 8:44 AM [facility] RBC Morphology Normal 10/18/2012 8:44 AM [facility] WBC Morph Normal 10/18/2012 8:44 AM [facility] Blood specimen (specimen) BLOOD SPECIMEN / Unknown 10/18/2012 8:16 AM [facility] 10/18/2012 8:22 AM FR[facility]ER Philip Chavez MD LAB - HEMATOLOGY ORDERABLES Performing Organization Address City/[facility]/ZIP Co de Phone Number [facility] [address] [place] [address] documented in this encounter Visit Diagnoses Diagnosis Neutropenia associated with autoimmune disease (HCC) Other neutropenia History of liver transplant (HCC) Liver replaced by transplant documented in this encounter Care Teams Body Builder Apprentice Relationship Specialty Start Date End Date Vilma Spangler MD [facility] [place] [address] PCP - General 01/05/11 documented as of this encounter
--- OUTSIDE RECORDS SUMMARY | 2024-10-28 05:57 | XMS_ITS | Encounter Summary ---
Author Organization [facility] Address [address] [place] [address] Care Team Providers Care Prospect Manager Name Role Phone Vilma Spangler MD Primary Care Provider Encounter Details Date Type Department Care Team (Latest Contact Info) Description 04/05/2012 7:57 AM CDT - 04/05/2012 11:59 PM CDT Hospital Encounter The [facility] at [address] [phone] Unknown, Provider Discharge Disposition: Home or Self Care Social [...] Sign Reading Time Taken Comments Blood Pressure 100/50 04/05/2012 8:00 AM CDT Pulse 76 04/05/2012 8:00 AM CDT Temperature 36.6 ??C (97.8 ??F) 04/05/2012 8:00 AM CD T Respiratory Rate 20 04/05/2012 8:00 AM CDT Oxygen Saturation 97% 04/05/2012 8:00 AM CDT Inhaled Oxygen Concentration - - Weight 53.7 kg (118 lb 6.2 oz) 04/05/2012 8:00 A M CDT Height 169.1 cm (5' 6.58 ) 04/05/2012 8:00 AM CD T Body Mass Index 18.78 04/05/2012 8:00 AM CDT documented in this encounter Medications at Time of Discharge Medication Sig Dispensed Refills Start Date End Date CLINDAMYCIN HCL PO Take by mouth. 012 oxycodone-acetaminophen (PERCOCET) 5-325 MG tablet Take 1 Tab by mouth every 4 hours as needed for Pain. 28 Tab 0 03/24/2012 10/27/2012 tacrolimus (PROGRAF) 1 MG capsule Take 1 Cap by mouth 2 times daily. 60 Cap 6 03/14/2012 12/28/2012 documented as of this encounter Progress Notes * Leyla Vargas RN - 04/05/2012 4:40 PM CDT Patient here with sister for a scheduled visit. Patient examined by Shannan Chavez MD. Lab work ordered. Lab samples obtained by Astrid Caldwell RN, from patient's left AC using a 23 G butterfly needle. Patient will RTC per MD instructions. Patient left clinic ambulatory with sister. * Philip Chavez MD - 04/05/2012 8:45 AM CDT Hematology/Oncology Progress Note 04/06/2012 Beka Contreras Simone PCP: Vilma Spangler MD Diagnosis: Autoimmune Thrombocytopenia/Autoimmune Neutropenia Liver Transplant Lymphadenopathy Interval History: Beka is a 17yo male with a history of cadaveric liver transplant who developed autoimmune neutropenia/thrombocytopenia 3 years ago. The autoimmune process was felt to be secondaryto chronic immune suppression coupled with reactivation of EBV. He ultimately responded to Rituximab with clearance of EBV and normalization of counts. He has suffered from hypogammaglobulinemia since and requires regular IVIG. He recently developed lymphadenopathy most notable in the left neck. PET/CT revealed diffuse adenopathy in the chest and abdomen as well as bilateral cervical areas. No classic B symptoms. Feels well. No clear resolution with antibiotics. Biopsy of left cervical nodes 1 1/2 weeks ago revealed granul omatous lymphadenitis. No clear malignant elements. Healing well. Nodes seem to be getting smaller. No Known Allergies Current Outpatient Prescriptions Medication Sig Dispense Refill ??? oxycodone-acetaminophen (PERCOCET) 5-325 MG tablet Take 1 Tab by mouth every 4 hours as needed for Pain. 28 Tab 0 ??? tacrolimus (PROGRAF) 1 MG capsule Take 1 Cap by mouth 2 times daily. 60 Cap 6 ??? CLINDAMYCIN HCL PO Take by mouth. Review of Systems: 1) General Fever: no [...] at home with parents, sibs. 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 Physical Exam Constitutional: BP 100/50 Pulse 76 Temp 97.8 ??F Resp 20 Ht 1.691 m (5' 6.58 ) Wt 53.7 kg (118 lb 6.2 oz) BMI 18.78 kg/m2 SpO2 97% BSA (Calculated): 1.59 General Appearance: No acute distress. Awake and alert. Good mood. Head: No nasal congestion or discharge. Skin: no rashes, bruises, or petechiae. Eyes: anicteric: pupils equal, round, reactive to light; intact extra-ocular movements Mouth/throat: no sores, erythema, exudates, or mucosal pallor. Lymph nodes: 2-3 cm collection of firm matted nodes under left jaw. No erythema. Scattered left small cervical nodes. Chest: lungs clear to auscultation Heart: normal S1 and S2, no murmur Abdomen: soft, non-tender, no masses or hepatosplenomegaly Genitalia: deferred Extremities: no focal swelling or tenderness; full ROM. Neuro: nonfocal Lab and/or Imaging Studies Recent Results (from the past 72 hour(s)) BASIC METABOLIC PANEL (CALCIUM TOTAL) Collection Time 04/05/12 9:19 AM Component Value Range Sodium 139 136-145 (mmol/L) Potassium 3.8 3.5-5.1 (mmol/L) Chloride 108 (*) 98-107 (mmol/L) CO2 17 (*) 22-29 (mmol/L) Calcium 8.94 (*) 9.08-10.48 (mg/dL) Anion Gap 18 5-20 (mmol/L) BUN 8.9 5.3-18.7 (mg/dL) Creatinine 0.84 0.61-1.07 (mg/dL) eGFR by MDRD >60 >60 (ml/min/1.73m2) eGFR by MDRD AFR AMER >60 >60 (ml/min/1.73m2) Glucose Random 92 70-105 (mg/dL) Assessment 1. Lymphadenopathy: Granulomatous lymphadenitis. Bartonella and Histo titers negative. PPD negative. AFB and fungal stains of node negative. Appears to be improving. 2. Autoimmune Thrombocytopenia/Neutropenia: Related to snf immune suppression with tacrolimusand EBV reactivation. Ultimately treated with Rituximab in late 2008. EBV PCR remains positive and quantifiable but not increased. No specific symptoms. Counts remain normal. 3. Immune suppression: Patient on chronic tacrolimus for liver transplant. 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 IVIG 3 1/2 weeks ago Plan 1. CBC, 2. RTC in 2 weeks for IVIG 3. Discuss case with ID 4. Angiotensin Converting Enzyme documented in this encounter Miscellaneous Notes * Miscellaneous Scans - Document, Scanned - 04/12/2012 8:42 PM CDT documented in this encounter Plan of Treatment Not on file documented as of this encounter Procedures Procedure Name Priority Date/Time Associated Diagnosis Comments ANGIOTENSIN CONVERTING ENZYME BLOOD Routine 04/05/2012 9:19 AM CDT Lymphadenopathy BASIC METABOLIC PANEL (CALCIUM TOTAL) ZAHRA 04/05/2012 9:19 AM CDT Lymphadenopathy documented in this encounter Results * (ABNORMAL) BASIC METABOLIC PANEL (CALCIUM TOTAL) (04/05/2012 9:19 AM CDT) Sodium 139 136 - 145 mmol/L 04/05/2012 10:48 AM [facility] Potassium 3.8 3.5 - 5.1 mmol/L 04/05/2012 10:48 AM T [facility] Chloride 108(H) 98 - 107 mmol/L 04/05/2012 10:48 AM [facility] CO2 17(L) 22 - 29 mmol/L 04/05/2012 10:48 AM T [facility] Calcium 8.94(L) 9.08 - 10.48 mg/dL 04/05/2012 10:48 AM [facility] Anion Gap 18 5 - 20 mmol/L 04/05/2012 10:48 AM T [facility] BUN 8.9 5.3 - 18.7 mg/dL 04/05/2012 10:48 AM T [facility] Creatinine 0.84 0.61 - 1.07 mg/dL 04/05/2012 10:48 AM [facility] eGFR by MDRD >60 >60 ml/min/1.7 2 04/05/2012 10:48 AM [facility] eGFR by MDRD >60 >60 ml/min/1.7 2 04/05/2012 10:48 AM [facility] Glucose 92 70 - 105 mg/dL 04/05/2012 10:48 AM [facility] Blood specimen (specimen) BLOOD SPECIMEN / Unknown 04/05/2012 9:19 AM CDT 04/05/2012 9:46 AM CDT Philip Chavez MD LAB - CHEMISTRY O RDERABLES Performing Organization Address City/State/[facility] Co de Phone Number [facility] [address] [place] [address] * ANGIOTENSIN CONVERT ENZYME BLOOD (04/05/2012 9:19 AM CDT) Angiotensin-Conv erting Enzyme 61 9 - 67 U/L 04/06/2012 5:27 PM CDT [facility] Comment: INTERPRETIVE INFORMATION: Angiotensin Converting Enzyme For related information, see [email or web address] Blood specimen (specimen) BLOOD SPECIMEN / Unknown 04/05/2012 9:19 AM CDT 04/05/2012 9:47 AM CDT Philip Chavez MD LAB - CHEMISTRY O RDERABLES [employer] [address] [place] [address] documented in this encounter Visit Diagnoses Diagnosis Lymphadenopathy Enlargement of lymph nodes documented in this encounter Care Teams Prospect Manager Relationship Specialty Start Date End Date Vilma Spangler MD [address] [place] [id number] PCP - General 01/05/11 documented as of this encounter
--- OUTSIDE RECORDS SUMMARY | 2024-10-28 05:57 | XMS_ITS | Encounter Summary ---
Author Organization [facility] Address [address] [place] [address] Care Team Providers Care Crown Blocker Name Role Phone Vilma Spangler MD Primary Care Provider [phone] Reason for Visit * Reason Comments Neck Mass follow up Encounter Details Date Type Department Care Team (Latest Contact Info) Description 03/22/2012 9:05 AM CDT - 03/22/2012 11:59 PM CDT Hospital Encounter [facility] - ENT [facility] [place] [address] Discharge Disposition: Home or Self Care Social [...] Taken Comments Blood Pressure - - Pulse - - Temperature - - Respiratory Rate - - Oxygen Saturation - - Inhaled Oxygen Concentration - - Weight 53.1 kg (117 lb) 03/22/2012 9:06 AM CDT Height 169.8 cm (5' 6.85 ) 03/22/2012 9:06 AM CD T Body Mass Index 18.41 03/22/2012 9:06 AM CDT documented in this encounter Discharge Instructions * Patient Instructions* Marlene Cohen LPN - 03/22/2012 9:20 AM CDT Your child has been scheduled for Same Day Surgery (Outpatient Surgery) A natural parent or a court appointed legal guardian MUST accompany the child DATE, TIME, & LOCATION If you know that you will not be able to keep your scheduled surgery date, please call: Wednesday - Wednesday, 9:00am - 4:00pm (or leave a voicemail message anytime 24hr a day/7-days a week) The surgery is: Excision of left neck lymph node By Dr. Rivas on: March 24 TIME OF ARRIVAL: Same Day Surgery will call you 5-7 days before your child's surgery date with the exact time of arrival. If you have not heard from them by 3 days before your surgery date, please call the location below where your child's surgery will take place. ____[facility] ___ [facility] *to have surgery at this location, the child cannot have ANY OTHER medical condition ( DO NOT CANCEL SURGERY WITHOUT NOTIFYING US AT [phone] ) You must notify our office within 48 hours of any changes regarding your insurance or any additional insurance you may have to prevent cancellation of the surgery Insurance changes on the day of or the day before surgery will result in cancel/rescheduling of thesurgery SURGERY INSTRUCTIONS: He cannot have any solid food, milk, or orange juice after midnight before surgery (8 hours prior to the procedure). Clear liquids (water, Pedialyte, clear juice, 7-up, Sprite) may be administered upto 3 hours prior to the time of arrival at the hospital. All infants 0-6 months may be fed milk 6 hours prior to the procedure. Sugar water or Pedialyte maybe administered up to 2 hours prior to the scheduled time of the procedure. If your child is on medications other than what we have prescribed or you are unsure as to whether a specific medication should be stopped, please call the ENT Nurse at or the prescribing doctor for instructions. In order for your child to take any medicines after midnight, the nightbefore surgery, you must call for instructions. Most medications can be given if needed with a small amount of water, but this must be cleared with the surgeon. Do not give aspirin 2 weeks prior and motrin/ibuprofen 5 days prior to surgery. Tylenol is OK If your child has been exposed to anyone with chicken pox, measles, or mumps within the last three weeks, OR if your child has a fever greater than 101 degrees or a cold or flu, surgery may be canceled - call for instructions. --The surgery will take place approximately 1 ?? - 2 hours after you arrive (the exact time cannot be predicted). --Your child will be ready to go home a few hours after surgery. Please be prepared to spend a goodpart of the day at the hospital. --No brothers or sisters are permitted, as waiting area space is limited. documented in this encounter Medications at Time of Discharge Medication Sig Dispensed Refills Start Date End Date CLINDAMYCIN HCL PO Take by mouth. 012 tacrolimus (PROGRAF) 1 MG capsule Take 1 Cap by mouth 2 times daily. 60 Cap 6 03/14/2012 12/28/2012 documented as of this encounter Progress Notes * Silverio Rivas - 03/22/2012 9:19 AM CDT Primary Care Physician: Vilma Spangler MD Chief Complaint Patient presents with ??? Neck Mass follow up History of Present Illness: Beka is a 17 y.o. male who returns after a CT of the neck for adenopathy. A workup by Dr. Chavez has failed to identify any etiology. The neck CT reveals extensive left cervical adenopathy without palpable change from last week. The DDx is worrisome for lymphoma. 1. 4.3 x 4.0 x 3.0 cm [...] edema to suggest an acute infectious process. Past Medical History ??? ITP (idiopathic thrombocytopenic purpura) ??? Platelet disorder ??? Hx of liver transplant 1998 ??? 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 Medications: Current outpatient prescriptions:CLINDAMYCIN HCL PO, Take by mouth., Disp: , Rfl: ; tacrolimus (PROGRAF) 1 MG capsule, Take 1 Cap by mouth 2 times daily., Disp: 60 Cap, Rfl: 6 Allergies: Review of patient's allergies indicates no known allergies. Review of systems: No changes or not contributory Physical Exam: Height: 169.8 cm (5' 6.85 ) Weight: 53.071 kg (117 lb) Body mass index is 18.41 kg/(m^2). Constitutional: no retractions or cyanosis Head and Face: no lesions or masses; facies symmetrical Neck: Large mass of probable nodes in the level neck at level 2a with small nodes in level 5a and 5b. ASSESSMENT: 1. Bilateral cervical adenopathy - left side more prominent with negative serologies 2. Immunocompromised (post liver transplant) PLAN: 1. Will proceed with an excisional left cervical lymph node bx. I will likely take out the level 5bnode hoping that this node will represent the neoplastic process and avoid the surgical risks to the marginal nerve and to avoid a noticeable scar. An intraop path evaluation will be requested to assure the excised tissue is diagnostic. There is a possibility I would need to still excise the submandibular nodes. Surgery scheduled for 03/24/12. 2. PET scan tomorrow The patient and I have discussed the risks, benefits, procedure, alternatives, and convalescence. The patient is in agreement with this plan. documented in this encounter Miscellaneous Notes * Miscellaneous Scans - Document, Scanned - 07/02/2012 10:01 AM CDT documented in this encounter Plan of Treatment Not on file documented as of this encounter Visit Diagnoses Diagnosis Lymphadenopathy Enlargement of lymph nodes Neutropenia associated with autoimmune disease (HCC) Other neutropenia documented in this encounter Care Teams Crown Blocker Relationship Specialty Start Date End Date Vilma Spangler MD [address] [place] [address] PCP - General 01/05/11 documented as of this encounter
--- OUTSIDE RECORDS SUMMARY | 2024-10-28 05:57 | XMS_ITS | Encounter Summary ---
Author Organization [facility] Address [address] [place] [address] Care Team Providers Care Communication Center Coordinator Name Role Phone Vilma Spangler MD Primary Care Provider [phone] Reason for Visit * Reason Onset Date Comments Refill Request 03/14/2012 Encounter Details Date Type Department Care Team (Late st Contact Info) Description 03/14/2012 Telephone [facility] - Transplant Services [address] [place] [id number] Batool Mcdermott, RN Refill Request Social History Tobacco Use Types Packs/Day Years [...] Telephone Encounter - Batool Mcdermott, RN - 03/14/2012 10:13 AM CDT Received a request to call prograf [facility] a local [facility] for [facility]a. [facility] particular [facility] in system. Left a message for mom to call the transplant office to let us know which pharmacy they currently use. documented in this encounter Plan of Treatment Not on file documented as of this encounter Visit Diagnoses Not on filedocumented in this encounter Care Teams Communication Center Coordinator Relationship Specialty Start Date End Date Vilma Spangler MD [address] [place] [id number] PCP - General 01/05/11 documented as of this encounter
--- OUTSIDE RECORDS SUMMARY | 2024-10-28 05:57 | XMS_ITS | Encounter Summary ---
Author Organization [facility] Address [address] [place] [address] Care Team Providers Care Radio Installer Automobile Name Role Phone Vilma Spangler MD Primary Care Provider Encounter Details Date Type Department Care Team (Latest Contact Info) Description 03/15/2012 7:00 AM CDT - 03/15/2012 10:24 AM CDT Hospital Encounter The [facility] at [address] [address] Discharge Disposition: Home or Self Care Social [...] Sign Reading Time Taken Comments Blood Pressure 90/70 03/15/2012 7:00 AM CDT Pulse 64 03/15/2012 7:00 AM CDT Temperature 36.3 ??C (97.4 ??F) 03/15/2012 7:00 AM CD T Respiratory Rate 16 03/15/2012 7:00 AM CDT Oxygen Saturation 98% 03/15/2012 7:00 AM CDT Inhaled Oxygen Concentration - - Weight 52.4 kg (115 lb 8.3 oz) 03/15/2012 7:00 A M CDT Height 169.5 cm (5' 6.73 ) 03/15/2012 7:00 AM CD T Body Mass Index 18.24 03/15/2012 7:00 AM CDT documented in this encounter Medications [...] Progress Notes * Philip Chavez MD - 03/15/2012 8:39 AM CDT Hematology/Oncology Progress Note 01/07/2012 Beka Contreras Niharikaaria PCP: Vilma Spangler MD Diagnosis: Autoimmune Thrombocytopenia/Autoimmune [...] from hypogammaglobulinemia since and requires regular IVIG. Beka has been well up until 3-4 weeks ago. At that point he noted gradual swelling in the left neck under the jaw. The swelling was initially somewhat tender but improved in that regard. He was admitted last week with right face cellulitis with associated right neck LAD. His cellulitis responded to clindamycin and the right sided adenopathy has largely resolved. The left LAD remains and is very firm. The area has become tender again. No fevers. No night sweats. No weight loss. No problems swallowing. No recent travel. He does havea cat in the home but denies scratches. No tick bites. [place] time [place] CXR unremarkable last week. IVIG given in the hospital last week. No Known Allergies Current Outpatient Prescriptions Medication Sig Dispense Refill ??? tacrolimus (PROGRAF) 1 MG capsule Take 1 Cap by mouth 2 times daily. 60 Cap 6 ??? clindamycin (CLEOCIN) 300 MG capsule Take 1 Cap by mouth 3 times daily for 9 days. 27 Cap 0 Current Facility-Administered Medications Medication Dose Route Frequency Provider Last Rate Last Dose ??? tuberculin PPD (TUBERSOL) injection 0.1 mL 0.1 mL Intradermal Once Philip Chavez MD ??? lynda albicans skin test (CANDIN) injection 0.1 mL 0.1 mL Intradermal Once Philip Chavez MD Review of Systems: 1) General Fever: no [...] at home with parents, sibs. Working at [employer] in the [employer] dept. Physical Exam Constitutional: BP 90/70 Pulse 64 Temp 97.4 ??F Resp 16 Ht 1.695 m (5' 6.73 ) Wt 52.4 kg (115 lb 8.3 oz) BMI 18.24 kg/m2 SpO2 98% BSA (Calculated): 1.57 General Appearance: No acute distress. Awake and alert Head: No nasal congestion or discharge. Skin: no rashes, bruises, or petechiae. Small sore on right face covered with bandaid. Eyes: anicteric: pupils equal, round, reactive to light; intact extra-ocular movements Mouth/throat: no sores, erythema, exudates, or mucosal pallor. Lymph nodes: 4-5 cm collection of firm matted nodes under left jaw. No erythema. No other obvious adenopathy. Chest: lungs clear to auscultation Heart: normal S1 and S2, no murmur Abdomen: soft, non-tender, no masses or hepatosplenomegaly Genitalia: deferred Extremities: no focal swelling or tenderness; full ROM. Tatoo in the shape of a crucifix on right upper arm Neuro: nonfocal Lab and/or Imaging Studies Recent Results (from the past 72 hour(s)) CBC W AUTO DIFFERENTIAL Collection Time 03/15/12 8:00 AM Component Value Range WBC 7.46 4.5 - 11.0 (K/cumm) RBC 5.14 4.50 - 5.90 (mill/cumm) Hgb 16.3 13.5 - 17.5 (gm/dl) Hct 44.0 41.0 - 53.0 (%) MCV 87.7 80.0 - 100.0 (cu microns) MCH 32.7 26.0 - 34.0 (uug) MCHC 37.0 31.0 - 37.0 (%) RDW 11.[address] 228 100 - 400 (K/cumm) Manual Diff Comment To follow Assessment 1. Lymphadenopathy: Left sided firm/fixed collection of nodes. No obvious response to Clindamycin despite resolution of right neck adenopathy/cellulits. Considerations include atypical infectious disease such as Bartonella infection, atypical mycobacteria, etc; as well as potentially more serious conditions such as Hodgkin's disease or non Hodgkin Lymphoma. Also included in the list are a host of benign inflammatory/infiltrative conditions leading to LAD. Patient is clinically well appearing without B symptoms. 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 EBV PCR remains positive and quantifiable but not increased. No specific symptoms. Counts remain normal. 3. Immune suppression: Patient on chronic tacrolimus for liver transplant. 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 IVIG given last week Plan 1. CBC, 2. EBV PCR sent -Following serial EBV PCR. 3. Bartonella titers 4. PPD and Lynda control 5. CT neck 6. ENT consult regarding biopsy of lesion if infectious workup negative 7. Complete Clindamycin 8. Patient due for IVIG in 4-5 weeks. * Sherry Rebolledo RN - 03/15/2012 8:17 AM CDT Patient arrived to clinic accompanied by mother for labs and visit. Patient triaged and assessed byRN. Patient examined by Dr. Chavez. Labs drawn peripherally. TB skin test and lynda skin test. Patient sent to ENT clinic. Patient D/C home and will return on 03/18/[address] and skin tests check. documented in this encounter Miscellaneous Notes * Miscellaneous Scans - Document, Scanned - 06/17/2012 8:08 AM CDT documented in this encounter Plan of Treatment Scheduled Orders Name Type Priority Associated Diagnoses Orde r Schedule LDH BLOOD Lab ZAHRA Lymphadenopathy ONCE for 1 Occurrences starting 03/15/2012 until 03/15/2012 URIC ACID BLOOD Lab ZAHRA Lymphadenopathy ONCE for 1 Occurrences starting 03/15/2012 until 03/15/2012 documented as of this encounter Procedures Procedure Name Priority Date/Time Associated Diagnosis Comments BARTONELLA HENSELAE IGG/IGM AB PANEL Routine 03/15/2012 9:45 AM CDT Lymphadenopathy HISTOPLASMA ANTIBODY PANEL Routine 03/15/2012 9:45 AM CDT Lymphadenopathy BARTONELLA LUNA ANTIBODY IGG/IGM PANEL Routine 03/15/2012 9:45 AM CDT Lymphadenopathy TACROLIMUS LEVEL Timed 03/15/2012 8:00 AM CDT Liver replaced by transplant (HCC) JSOE-DE LA CRUZ VIRUS PCR QUANT BLOOD/CSF Routine 03/15/2012 8:00 AM CDT Liver replaced by transplant (HCC) DIFFERENTIAL MANUAL Timed 03/15/2012 8 :00 AM CDT CBC W AUTO DIFFERENTIAL Timed 03/15/2012 8:00 AM CDT Liver replaced by transplant (HCC) GLUCOSE Timed 03/15/2012 8:00 AM CDT Liver replaced by transplant (HCC) LYTES (NA K CL CO2) BLOOD Timed 03/15/2012 8:00 AM CDT Liver replaced by transplant (HCC) HEPATIC FUNCTION PANEL Timed 03/15/2012 8:00 AM CDT Liver replaced by transplant (HCC) MAGNESIUM BLOOD Timed 03/15/2012 8:00 AM CDT Liver replaced by transplant (HCC) GGT Timed 03/15/2012 8:00 AM CDT Liver replaced by transplant (HCC) CREATININE BLOOD Timed 03/15/2012 8:00 AM CDT Liver replaced by transplant (HCC) BUN Timed 03/15/2012 8:00 AM CDT Liver replaced by transplant (HCC) documented in this encounter Results * CT SOFT TISSUE NECK WITH CONTRAST [...] above. The bony structures are otherwise intact. Philip Chavez MD CT ORDERABLES * HISTOPLASMA ANTIBODY PANEL (03/15/2012 9:45 AM CDT) Histoplasma mycelial Antibody <1-8 <1 - 8 [facility] Histoplasma Yeast Antibody <1-8 <1 - 8 [facility] Comment Ref Lab [facility] Comment: INTERPRETIVE INFORMATION: ??Histoplasma Antibodies by [...] AM CDT 03/15/2012 9:55 AM CDT Narrative [facility] - 03/20/2012 4:22 AM CDT Performed By [facility] ? [address] ? [place], [place] [address] 1 Philip Chavez MD LAB - SEROLOGY OR DERABLES Performing Organization Address City/State/[facility] Co de Phone Number [facility] [address] [place] [address] * BARTONELLA LUNA ANTIBODY PANEL (03/15/2012 9:45 AM CDT) Bartonella luna Antibody IgG <1-64 [facility] Bartonella luna Antibody IgM < 1-16 [facility] Comment Ref Lab [facility] Comment: INTERPRETIVE INFORMATION: Bartonella luna Antibody, IgG ??Less than 1:64 ....... Negative: No significant level of ? Bartonella luna IgG antibody ? detected. ??1:64 - 1:128 ........ ??Equivocal: Questionable presence ? of Bartonella luna IgG ? antibody detected. Repeat testing ? in 10-14 days may be helpful. ??1:256 or greater ..... Positive: Presence of IgG ? antibody to Bartonella luna ? detected, suggestive of current ? or [...] developed and its performance characteristics determined by [facility]. It has not been approved or cleared by the U.S. Food and Drug Administration. This test should not be regarded as investigational or for research use. INTERPRETIVE INFORMATION: Bartonella luna Ab, IgM ??Less than 1:16 ...... Negative-No significant level of ?Bartonella luna IgM antibody ?detected. ??1:16 or greater ..... Positive-Presence of IgM antibody ?to Bartonella luna detected, ?suggestive of current or recent ?infection. [...] developed and its performance characteristics determined by [facility] [employer]. The U.S. Food and Drug Administration has [...] AM CDT 03/15/2012 9:55 AM CDT Narrative [facility] - 03/19/2012 1:49 PM CDT Performed By [facility] ? [address] ? [place], [place] [address] 1 Philip Chavez MD LAB - SEROLOGY OR DERABLES Performing Organization Address City/State/[facility] Co de Phone Number [facility] [address] [place] [address] * BARTONELLA HENSELAE ANTIBODY PANEL (03/15/2012 9:45 AM CDT) Bartonella henselae Antibody IgG <1-64 [facility] Bartonella henselae Antibody IgM < 1-16 [facility] Comment Ref Lab [facility] Comment: INTERPRETIVE INFORMATION: Bartonella henselae [...] developed and its performance characteristics determined by [facility]. The U.S. Food and Drug Administration has [...] developed and its performance characteristics determined by [facility]. The U.S. Food and Drug Administration has [...] AM CDT 03/15/2012 9:55 AM CDT Narrative [facility] - 03/19/2012 1:50 PM CDT Performed By [facility] ? [address] ? [place], [place] [address] 1 Philip Chavez MD LAB - SEROLOGY OR DERABLES Performing Organization Address City/State/[facility] Co de Phone Number [facility] [address] [place] [address] * (ABNORMAL) DIFFERENTIAL MANUAL (03/15/2012 8:00 AM CDT) Comment Manual Diff Done [facility] Neutrophils % Manual 76(H) 43 - 70 % [facility] Lymphocytes % Manual 12(L) 22 - 41 % [facility] Monocytes % Manual 10 2 - 13 % [facility] Eosinophils % Manual 2 0 - 6 % [facility] RBC Morphology Normal [facility] BLOOD SPECIMEN / Unknown 03/15/2012 8:00 AM CDT 03/15/2012 9:02 AM CDT Philip Chavez MD LAB - HEMATOLOGY ORDERABLES Performing Organization Address [facility] de Phone Number [facility] [address] [place] [address] * TACROLIMUS LEVEL (03/15/2012 8:00 AM CDT) Tacrolimus 7.1 3.0 - 12.0 ng/ml [facility] Blood specimen (specimen) BLOOD SPECIMEN / Unknown 03/15/2012 8:00 AM CDT 03/15/2012 8:16 AM CDT Philip Chavez MD LAB - THERAPEUTIC DRUG MONITORING ORDERABLES Performing Organization Address [facility] Phone Number [facility] [address] [place] [address] * MAGNESIUM BLOOD (03/15/2012 8:00 AM CDT) Magnesium 1.9 1.6 - 2.3 mg/dl [facility] Blood specimen (specimen) BLOOD SPECIMEN / Unknown 03/15/2012 8:00 AM CDT 03/15/2012 8:16 AM CDT Philip Chavez MD LAB - CHEMISTRY O RDERABLES Performing Organization Address [facility] de Phone Number [facility] [address] [place] [phone] * LYTES (NA K CL CO2) BLOOD (03/15/2012 8:00 AM CDT) Sodium 142 137 - 145 mmol/L [facility] Potassium 4.5 2.5 - 6.0 mmol/L [facility] Chloride 105 98 - 107 mmol/L [facility] CO2 27.5 22 - 30 mmol/L [facility] Blood specimen (specimen) BLOOD SPECIMEN / Unknown 03/15/2012 8:00 AM CDT 03/15/2012 9:33 AM CDT Philip Chavez MD LAB - CHEMISTRY O SARAH Performing Organization Address [facility] de Phone Number [facility] [address] [place], [place] [phone] * (ABNORMAL) HEPATIC FUNCTION PANEL (03/15/2012 8:00 AM CDT) Bilirubin Total 0.3(L) 0.6 - 1.4 mg/dl [facility] Bilirubin Direct ND 0.0 - 0.3 mg/dl [facility] Protein Total 7.2 6.3 - 8.6 gm/dl [facility] Albumin 4.2 3.7 - 5.6 gm/dl [facility] ALT 31 10 - 40 Units/L [facility] AST 36 10 - 45 Units/L [facility] Alkaline Phosphatase 126 65 - 260 Units/L [facility] Blood specimen (specimen) BLOOD SPECIMEN / Unknown 03/15/2012 8:00 AM CDT 03/15/2012 9:33 AM CDT Philip Chavez MD LAB - CHEMISTRY O SARAH Performing Organization Address [facility] de Phone Number [facility] [address] [place] [phone] * GLUCOSE (03/15/2012 8:00 AM CDT) Glucose 85 70 - 106 mg/dl [facility] Blood specimen (specimen) BLOOD SPECIMEN / Unknown 03/15/2012 8:00 AM CDT 03/15/2012 9:33 AM CDT Philip Chavez MD LAB - CHEMISTRY O SARAH Performing Organization Address [facility] de Phone Number [facility] [address] [place] [phone] * (ABNORMAL) GGT (03/15/2012 8:00 AM CDT) GGT 38(H) 11 - 31 Units/L [facility] Blood specimen (specimen) BLOOD SPECIMEN / Unknown 03/15/2012 8:00 AM CDT 03/15/2012 9:33 AM CDT Philip Chavez MD LAB - CHEMISTRY O RDERABLES Performing Organization Address [facility] Co de Phone Number [facility] [address] [place] [address] * CREATININE BLOOD (03/15/2012 8:00 AM CDT) Creatinine 0.91 0.50 - 1.06 mg/dl [facility] Blood specimen (specimen) BLOOD SPECIMEN / Unknown 03/15/2012 8:00 AM CDT 03/15/2012 9:33 AM CDT Philip Chavez MD LAB - CHEMISTRY O RDERABLES Performing Organization Address [facility] de Phone Number [facility] [address] [place] [address] * BUN (03/15/2012 8:00 AM CDT) BUN 11.5 8 - 21 mg/dl [facility] Blood specimen (specimen) BLOOD SPECIMEN / Unknown 03/15/2012 8:00 AM CDT 03/15/2012 9:33 AM CDT Philip Chavez MD LAB - CHEMISTRY O RDERABLES Performing Organization Address [facility] de Phone Number [facility] [address] [place] [address] * CBC W AUTO DIFFERENTIAL (03/15/2012 8:00 AM CDT) WBC 7.46 4.5 - 11.0 K/cumm [facility] RBC 5.14 4.50 - 5.90 mill/cumm [facility] Hemoglobin 16.3 13.5 - 17.5 gm/dl [facility] Hematocrit 44.0 41.0 - 53.0 % [facility] MCV 87.7 80.0 - 100.0 cu microns [facility] MCH 32.7 26.0 - 34.0 uug [facility] MCHC 37.0 31.0 - 37.0 % [facility] RDW 11.6 % [facility] MPV 10.0 fl [facility] Platelet Count 228 100 - 400 K/cumm [facility] Comment Manual Diff Done [facility] Blood specimen (specimen) BLOOD SPECIMEN / Unknown 03/15/2012 8:00 AM CDT 03/15/2012 8:46 AM CDT Philip Chavez MD LAB - HEMATOLOGY ORDERABLES [facility] [address] [place] [address] * JOSE-BAR VIRUS PCR QUANTITATIVE BLOOD (03/15/2012 8:00 AM CDT) Jose-De La Cruz Virus DNA PCR Quantitative Positive for EBV DNA but below the level of accurate quantitatio n. NO EBV DNA Copies/m L [facility] Jose-De La Cruz Virus DNA Quantitative log copy Positive for EBV DNA but below the level of accurate quantitatio n. log 10 copies/m L [facility] Comment EBV PCR [facility] Comment: This assay has a [...] ??EBV levels can vary by speimen type: [facility] uses whole blood which is [...] characteristics determined by the [facility]. ??It has not been cleared or [...] to perform high complexity clinical laboratory testing. Miscellaneous samples (specimen) BLOOD SPECIMEN / Unknown 03/15/2012 8:00 AM CDT 03/15/2012 10:12 AM CDT Houston Chao MD LAB - MICROBIOLOGY O RDERAVERN Performing Organization Address City/State/[facility] Co de Phone Number [facility] [phone] documented in this encounter Visit Diagnoses Diagnosis Liver replaced by transplant (HCC) Liver replaced by transplant Lymphadenopathy Enlargement of lymph nodes Lymphadenopathy Enlargement of lymph nodes documented in this encounter Administered Medications Inactive Administered Medications - up to 3 most recent administrations Medication Order MAR Action Action Date Dose Rate Site lynda albicans skin test (CANDIN) injection 0.1 mL 0.1 mL, Intradermal, ONCE, 1 dose, On Wed03/15/12 at 1000, Review injection site for induration at 24, 48, and 72 hours. $ Given 03/15/2012 9:45 AM CDT 0.1 mL tuberculin PPD (TUBERSOL) injection 0.1 mL 0.1 mL, Intradermal, ONCE, 1 dose, On Wed03/15/12 at 1000, Review injection site for induration between 48 and 72 hours. $ Placed 03/15/2012 9:45 AM CDT 0.1 mL Right Inner Forearm documented in this encounter Care Teams Radio Installer Automobile Relationship Specialty [place] [address] [place] [phone] PCP - General 01/05/11 documented as of this encounter
--- OUTSIDE RECORDS SUMMARY | 2024-10-28 05:57 | XMS_ITS | Encounter Summary ---
Author Organization [facility] Address [address] [facility] [place] [address] Care Team Providers Care Toxicology Supervisor Name Role Phone Vilma Spangler MD Primary Care Provider Encounter Details Date Type Department Care Team (Latest Contact Info) Description 03/23/2012 11:00 AM CDT - 03/23/2012 11:59 PM CDT Hospital Encounter [facility] at [address] [phone] Discharge Disposition: Home or Self Care Social [...] 03/14/2012 12/28/2012 documented as of this encounter Miscellaneous Notes * Miscellaneous Scans - Document, Scanned - 06/22/2012 9:32 AM CDT documented in this encounter Plan of Treatment Not on file documented as of this encounter Visit Diagnoses Not on filedocumented in this encounter Care Teams Toxicology Supervisor Relationship Specialty Start Date End Date Vilma Spangler MD [address] [phone] PCP - General 01/05/11 documented as of this encounter
--- OUTSIDE RECORDS SUMMARY | 2024-10-28 05:57 | XMS_ITS | Encounter Summary ---
Author Organization [facility] Address [address] [place] [place] [address] Care Team Providers Care Temple Meat Cutter Name Role Phone Vilma Spangler MD Primary Care Provider +- [phone] Reason for Visit * Reason Onset Date Comments Epistaxis 10/07/2012 Encounter Details Date Type Department Care Team (Late st Contact Info) Description 10/07/2012 Telephone [facility] at [address] [address] Astrid Caldwell RN Epistaxis Social History Tobacco Use Types Packs/Day Years [...] Telephone Encounter - Astrid Caldwell RN - 10/07/2012 9:31 AM CINDER DUMP CRANE OPERATOR Mom called to report Beka has been having nosebleeds off and on for the past 3 days. Currently having a nosebleed that won't stop. Dr. Fernandez notified and suggests coming to the ER. Mom agrees and access center notified. ER DUMP CRANE OPERATOR documented in this encounter Plan of Treatment Not on file documented as of this encounter Visit Diagnoses Not on filedocumented in this encounter Care Teams Temple Meat Cutter Relationship Specialty Start Date End Date Vilma Spangler MD [address] [id number] PCP - General 01/05/11 documented as of this encounter
--- OUTSIDE RECORDS SUMMARY | 2024-10-28 05:57 | XMS_ITS | Encounter Summary ---
Author Organization [facility] Address [address] [place] [address] Care Team Providers Care Sand Screener Name Role Phone Vilma Spangler MD Primary Care Provider [phone] Reason for Visit * Reason Comments Establish Care Chronic ITP, hx of l iver transplant Encounter Details Date Type Department Care Team (Late st Contact Info) Description 10/27/2012 10:23 AM EMERGENCY DEPARTMENT PHYSICIAN - 10/27/2012 11:59 PM [facility] Hospital Encounter [facility] - Surgery [address] [place] [id number] Philip Chavez MD [address] [place] [phone] Gregory Fung MD [address] [place] [id number] Discharge Disposition: Home or Self Care [...] hours. predniSONE (DELTASONE) 20 MG tablet Take 1.5 Tabs by mouth 2 times daily for 14 days. 56 Tab 0 10/27/2012 11/10/2012 tacrolimus (PROGRAF) 1 MG capsule Take 1 Cap by mouth 2 times daily. 60 Cap 6 03/14/2012 12/28/2012 documented as of this encounter H&P Notes * Gregory Fung MD - 10/27/2012 11:12 AM CST Pediatric General and Thoracic Surgery Clinic [facility] [address] [place] [address] phone fax Houston Fung MD Voice Writing Reporter of Pediatric Surgery DATE: 10/27/2012 Dear Vilma Spangler, It was a pleasure seeing Beka Nichols in clinic today. As you know, he is a 17 y.o. boy who I am seeing preoperatively for splenectomy to treat his chronic ITP. 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 He continues to have low platelet counts and the hematology service has requested that I evaluate him for splenectomy. Active Ambulatory Problems Diagnosis Date Noted ??? Hypogammaglobulinemia 02/17/2010 ??? 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 Cellulitis and abscess of face 03/08/2012 ??? Lymphadenopathy 03/08/2012 ??? History of liver transplant 05/18/2012 ??? Autoimmune hepatitis 05/18/2012 Resolved Ambulatory Problems Diagnosis Date Noted ??? No Resolved Ambulatory Problems Past Medical History Diagnosis Date ??? ITP (idiopathic thrombocytopenic purpura) ??? Platelet disorder ??? Hx of liver transplant 1998 ??? Hepatitis ??? Unspecified disorder of liver Family History Problem Relation Age of Onset [...] Hx ??? Marfan Syndrome Neg Hx ??? DE Neg Hx ??? Osteoporosis Neg Hx ??? Scoliosis Neg Hx ??? Severe Sprains Neg Hx ??? Sickle Cell Anemia Neg Hx ? ? Sudd. <30 Neg Hx Current Outpatient Prescriptions on File Prior to Encounter Medication Sig Dispense Refill ??? predniSONE (DELTASONE) 20 MG tablet Take 2 Tabs by mouth 2 times daily for 14 days. 56 Tab 0 ??? acetaminophen (TYLENOL) 325 MG tablet Take 325 mg by mouth every 4 hours as needed. Maximum allowable Acetaminophen amount = 4 Grams (4000 mg) / 24 hours. ??? tacrolimus (PROGRAF) 1 MG capsule Take 1 Cap by mouth 2 times daily. 60 Cap 6 No current facility-administered medications on file prior to encounter. Review of Symptoms General - no chills, fever or night sweats. Eyes - no change in vision ENT - recurrent nose bleeds CV- no dysrhythmias, no shortness of breath Pulm - no recent URI's, no cough, no other respiratory complaints GI - no diarrhea, no constipation, no dyspepsia - no difficulty voiding, no UTI's GENITALIA- no testicular pain Dermatologic- no petechiae Neuro- no seizures, no numbness, no tingling, no gait abnormality History obtained from mother and patient. On exam today, he is in no distress and appears comfortable. The head and neck exam revealed hypertrophic surgical scar to left neck from excision of lymph node. HEENT exam showed moist mucous membranes and the extraocular movements are intact. The exam of the neck revealed no evidence of cervical adenopathy. The chest was symmetrical and the lung exam was clear to auscultation bilaterally. The heart is of regular rate and normal rhythm. The abdomen has a healed bilateral subcostal with a midline superior extension ( Chevron ) incision, is non-tender, non-distended, without evidence of herniaalong the incision or at the umbilicus. The inguinal region was notable for no hernia. The skin generally showed no evidence of rash. Component Name 10/27/12 0810 10/18/12 0816 10/11/12 0918 WBC 11.6* 3.9* 5.4 HGB 15.7 14.5 13.7 HCT 43.5 39.9 37.8 PLTCOUNT 87* 10* 115* Component Name 10/18/12 0816 09/27/12 1150 09/20/12 0800 08/09/12 0840 04/20/12 0841 ALBUMIN 3.8 4.2 4.3 -- -- ALKPHOS 134 127 127 -- -- ALT 65* 61* 42 -- -- AST 47* 49* 31 -- -- TBIL 0.7 0.3 0.8 -- -- DBIL 0.24 -- -- 0.25 0.25 TPROT 7.1 7.5 6.6 -- -- CT Abdomen/Pelvis 10/27/12: EXAMINATION:CT scan of the abdomen, and pelvis [...] normal. The pancreas, spleen, adrenals, and kidneys appearnormal. There is no evidence of any intra-abdominal lymphadenopathy. No free air is identified. Thepelvic viscera are normal. No free fluid within the abdomen or pelvis is identified. IMPRESSION Post liver transplant without acute disease process. In summary, in my opinion Beka Nichols has chronic ITP. I discussed at length with both Beka and his mom, that patients who have a good response to steroids and or IVIG do pretty well after a splenectomy for ITP. The complicating factor is his large upper abdominal incision that may make it quite difficult to perform this laparoscopically, nonetheless, I would certainly attempt to approach itthat way if I am able to do it safely. As such, I discussed in detail the risks, benefits and otherthings to be aware of with the parents. This includes bleeding, infection, anesthetic risk, and specifically overwhelming post-splenectomy sepsis. The operation will be done as an inpatient and the typical admission is for ~5days. I will discuss the perioperative plan with heme regarding preop IVIG and platelet crossmatch for the OR. Thank you for allowing me to participate in the care of Beka Nichols. If you have any questions or concerns, please feel free to contact me at your convenience. I spent 25 minutes with this patient. Houston Fung MD Pediatric General and Thoracic Surgery GENCY DEPARTMENT PHYSICIAN documented in this encounter Miscellaneous Notes * Miscellaneous Scans - Document, Scanned - 11/30/2012 9:53 PM CST GENCY DEPARTMENT PHYSICIAN documented in this encounter Plan of Treatment Not on file documented as of this encounter Visit Diagnoses Diagnosis Hypogammaglobulinaemia, unspecified (HCC) Hypogammaglobulinaemia, unspecified Unspecified viral hepatitis without mention of hepatic coma documented in this encounter Care Teams Sand Screener Relationship Specialty Start Date End Date Vilma Spangler MD [address] [id number] PCP - General 01/05/11 documented as of this encounter
--- OUTSIDE RECORDS SUMMARY | 2024-10-28 05:57 | XMS_ITS | Encounter Summary ---
Author Organization [facility] Address [address] [place] [address] Care Team Providers Care Senior Product Marketing Manager Name Role Phone Vilma Spangler MD Primary Care Provider [phone] Encounter Details Date Type Department Care Team (Latest Contact Info) Description 03/24/2012 2:16 PM CDT - 03/24/2012 8:23 PM CDT Hospital Encounter [facility] [place] [address] [place] [address]. [place] [address] Silverio Rivas MD [address] [place] [phone] Ear Nose Throat Discharge Disposition: Home or Self Care Social [...] Sign Reading Time Taken Comments Blood Pressure 112/68 03/24/2012 7:57 PM CDT Pulse 84 03/24/2012 7:57 PM CDT Temperature 37.1 ??C (98.8 ??F) 03/24/2012 7:35 PM CD T Respiratory Rate 18 03/24/2012 7:57 PM CDT Oxygen Saturation 98% 03/24/2012 7:57 PM CDT Inhaled Oxygen Concentration - - Weight 53.3 kg (117 lb 8.1 oz) 03/24/2012 3:18 P M CDT Height 172 cm (5' 7.72 ) 03/24/2012 3:18 PM CDT Body Mass Index 18.02 03/24/2012 3:18 PM CDT documented in this encounter Discharge Summaries * Silverio Rivas - 03/25/2012 9:10 AM CDT Images from the original note were not included. SAME DAY SURGERY DISCHARGE SUMMARY Patient ID: Name: Adi Nichols MR#: [id number] Date of : 1995 Age: 17 y.o. Discharge Date: 03/24/2012 Discharge Diagnoses: 1. Enlargement of lymph nodes Procedure: Excision of left level 3 cervical adenopathy Discharge Condition: Stable Discharge Medication: Please see Discharge Instructions for a complete list of medications. Discharge Procedure Orders DISCHARGE ACTIVITY RESTRICTIONS Light activity, Increase activity tomorrow as tolerated. GENERAL ANESTHESIA /IV SEDATION INSTRUCTIONS For the remainder of the day, patient should relax. A feeling of dizziness, light-headedness or drowsiness is not unusual. Move cautiously, fast movements can make this feeling worse. If patient has been lying down, he/she should sit up slowly and pause briefly before standing. We strongly suggest that a responsible adult monitor the patient more closely than usual until tomorrow morning for his/her comfort and safety. CALL PHYSICIAN If unrelieved pain; excessive bleeding at surgical site; excessive redness/unusual drainage at surgical site or IV site; fever over 100 degrees under the arm or 101 degrees orally; numbness/tingling/changes in color in affected extremity; or if patient has not urinated by bedtime. CALL PHYSICIAN For persisting nausea and vomiting Follow-Up: 03/25/12 for drain removal Silverio Rivas MD documented in this encounter Discharge Instructions * Discharge Instructions* Ella Khan RN - 03/24/2012 7:14 PM CDT Discharge Instructions for: Adi Nichols Discharge Procedure Orders GENERAL ANESTHESIA /IV SEDATION INSTRUCTIONS For the remainder of the day, patient should relax. A feeling of dizziness, light-headedness or drowsiness is not unusual. Move cautiously, fast movements can make this feeling worse. If patient has been lying down, he/she should sit up slowly and pause briefly before standing. We strongly suggest that a responsible adult monitor the patient more closely than usual until tomorrow morning for his/her comfort and safety. CALL PHYSICIAN If unrelieved pain; excessive bleeding at surgical site; excessive redness/unusual drainage at surgical site or IV site; or fever over 102 degrees orally. CALL PHYSICIAN For vomiting that is unrelenting. HEAD OF BED ELEVATED 30 DEGREES WOUND CARE AT HOME Keep dressing clean dry and intact. Keep TATI to bulb compression. Strip drain every eight hours. HOME ACTIVITY INSTRUCTIONS ..No strenuous activity for 1 week. FOLLOW UP Your postoperative appointment has been scheduled for tomorrow afternoon in the clinic. [phone] for questions or concerns. The following belonging have been returned to you If your child has any worsening of their condition, please phone [phone] and ask for the doctor ribbon inker for ENT or return to the Emergency Department. 03/24/2012 * Discharge Instructions* Document, Scanned - 03/30/2012 9:04 PM CDT documented in this encounter Medications [...] as of this encounter Progress Notes * Robert Kiser MD - 03/24/2012 7:08 PM CDT POST-OP ANESTHESIA EVALUATION Adi Nichols is Post Op from Scheduled Procedure Scheduled procedure: Excision Left Neck Lymph Node The patient is sufficiently recovered from the acute administration of the anesthesia so as to participate in the evaluation or neurologic status has returned to pre-operative or expected level of consciousness. The post-anesthesia assessment was completed based upon the elements below. The patient is stable and has adequately recovered from anesthesia unless otherwise noted. Post-op Evaluation: Temp: 97.5 ??F Pulse: 65 Resp: 18 SpO2: 96 % BP: 92/52 mmHg Pain Rating Score #: 0 Other complications: None Unless otherwise indicated, the patient is being discharged from anesthesia care. * Korin Del Valle MD - 03/24/2012 6:43 PM CDT I have personally reviewed the patient's condition and agree with the above evaluation and anesthetic plan. * Subhash Bustamante MD - 03/24/2012 4:54 PM CDT Adi Nichols 17 y.o. male : 1995 PRE-ANESTHESIA EVALUATION Scheduled Procedure Scheduled procedure: Excision Left Neck Lymph Node Patient Active Problem List Diagnoses ??? Hypogammaglobulinemia ??? Neutropenia Associated with Autoimmune Disease ??? Cellulitis and abscess of face ??? Lymphadenopathy Allergies Review of patient's allergies indicates no known allergies. Meds Prescriptions prior to admission Medication Sig Dispense Refill ??? CLINDAMYCIN HCL PO Take by mouth. ??? tacrolimus (PROGRAF) 1 MG capsule Take 1 Cap by mouth 2 times daily. 60 Cap 6 No current facility-administered medications for this encounter. Past Medical History Diagnosis Date ??? ITP (idiopathic thrombocytopenic purpura) ??? Platelet disorder ??? Hx of liver transplant 1998 ??? 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 ??? Unspecified disorder of liver Past Surgical History Procedure Date ??? Liver transplant 1998 ??? Pr dental surgery procedure 2011 Removal of Eunice teeth in dental office under sedation Family History Problem Relation Age of Onset [...] Hx ??? Marfan Syndrome Neg Hx ??? NV Neg Hx ??? Osteoporosis Neg Hx ??? Scoliosis Neg Hx ??? Severe Sprains Neg Hx ??? Sickle Cell Anemia Neg Hx ? ? Sudd. <30 Neg Hx Labs: Component Name 03/15/12 0800 WBC 7.46 HGB 16.3 HCT 44.0 PLTCOUNT 228 Component Name 03/15/12 0800 SODIUM 142 POTASSIUM 4.5 CO2 27.5 BUN 11.5 CREATININE 0.91 GLUCOSE 85 Component Name 01/22/10 1000 PT 13.3 INR 1.0 PTT 29 Test:No results found for this basename: HCGURINE,HCGQUAL in the last 22033 hours VITAL SIGNS Temp: 97.5 ??F Pulse: 65 Resp: 18 BP: 92/52 mmHg Weight: 53.3 kg (117 lb 8.1 oz) Height: 172 cm (5' 7.72 ) SpO2: 96 % Pre-Eval ExamPHYSICAL EXAM NPO status: Since Midnight;Other (sips H2O 11 AM) Heart Sounds: S1 S2 Respiratory Pattern/Effort: CTA Oriented x 3: Yes Teeth: Ok Airway Class: I ANESTHESIA ASA: III Anesthesia Choices: General Post-Op: PACU PRE-EVAL REVIEW I have reviewed all previously documented physician evaluations: Yes Patient prefers Mask flavor: iv I have discussed anesthesia with the patient including possible complications and techniques. He/She/They understand(s) and consent(s). documented in this encounter H&P Notes * Joni Xie MD - 03/24/2012 4:31 PM CDT Otolaryngology Short Stay Form Patient name: Adi Nichols Date of : 1995 Today's Date: 03/24/2012 HPI: Adi Nichols is a 17 y.o. male s/p liver transplant with history of immunodeficiency who returns after a CT of the neck for adenopathy. A workup by Dr. Chavez has failed to identify any etiology. The neck CT reveals extensive left cervical adenopathy without palpable change from last week. The DDxis worrisome for lymphoma REVIEW OF SYMPTOMS: Within normal limits except as above MEDICATIONS: No current facility-administered medications on file prior to encounter. Current Outpatient Prescriptions on File Prior to Encounter Medication Sig Dispense Refill ??? CLINDAMYCIN HCL PO Take by mouth. ??? tacrolimus (PROGRAF) 1 MG capsule Take 1 Cap by mouth 2 times daily. 60 Cap 6 ALLERGIES: No Known Allergies IMMUNIZATIONS: UTD DEVELOPMENTAL HISTORY: Age appropriate PREVIOUS SERIOUS ILLNESS/SURGERY: Past Surgical History Procedure Date ??? Liver transplant 1998 ??? Pr dental surgery procedure 2011 Removal of Eunice teeth in dental office under sedation PREVIOUS CHILDHOOD ILLNESS: Past Medical History Diagnosis Date ??? ITP (idiopathic thrombocytopenic purpura) ??? Platelet disorder ??? Hx of liver transplant 1998 ??? 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 ??? Unspecified disorder of liver PERINENT FAMILY / SOCIAL HISTORY: Family History Problem Relation Age of Onset [...] Hx ??? Marfan Syndrome Neg Hx ??? NV Neg Hx ??? Osteoporosis Neg Hx ??? Scoliosis Neg Hx ??? Severe Sprains Neg Hx ??? Sickle Cell Anemia Neg Hx ? ? Sudd. <30 Neg Hx PHYSICAL EXAM: BP 92/52 Pulse 65 Temp 97.5 ??F Resp 18 Wt 53.3 kg (117 lb 8.1 oz) BMI 18.02 kg/m2 GEN: NAD HEAD: NCAT EYES: EOMI EARS: deferred NOSE: patent THROAT: clear NECK: supple, palpable left level Ib, perifacial and level V adenopathy HEART: Regular rate and rhythm, normal pulses and capillary refill LUNGS: clear to auscultation, no wheezes, rales, or rhonchi ABDOMEN: Abdomen is soft, no tenderness, masses, or organomegaly EXTREMITIES: no clubbing, cyanosis or edema NEURO: no focal findings or movement disorder note SKIN: wnl ASSESMENT: Adi Nichols is a 17 y.o. male with cervical adenopathy PLAN: Excisional biopsy of L neck lymph node Joni Xie MD documented in this encounter Procedure Notes * Document, Scanned - 04/11/2012 9:04 AM CDTAssociated Order(s): IMAGING/RADIOLOGY/XRAY RESULTS ORDER * Document, Scanned - 03/30/2012 9:04 PM CDTAssociated Order(s): PATHOLOGY/CYTOLOGY REPORT ORDER documented in this encounter OR Notes * Operative - Joni Xie MD - 03/24/2012 8:24 PM CDT [facility] Operative Report NAME: ADI NICHOLS : 1995 UNIT #: [id number] DATE OF OPERATION: ATTENDING SURGEON: SILVERIO RIVAS MD PREOPERATIVE DIAGNOSIS: Left neck lymphadenopathy. POSTOPERATIVE DIAGNOSIS: Left neck lymphadenopathy. PROCEDURE PERFORMED: Excision of left neck deep cervical node SANDWICH HAND: Dr. Joni Xie. ANESTHESIA: General endotracheal. INDICATIONS FOR PROCEDURE: The patient is a 17-year-old male with a history of immunosuppression and constitutional symptoms concerning for hematogenous malignancy. A recent PET CT revealed FDV avid node within the left jugulodigastric chain. He was felt to be an appropriate candidate for the aforementioned procedures and presents today for surgical intervention. The risks, benefits and alternatives including the risk for bleeding and injury to the accessory and marginal mandibular nerve were both discussed with the patient who agreed to proceed. FINDINGS: 1. Matted lymphadenopathy within levels II and III of the left neck. 2. 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 DESCRIPTION OF PROCEDURE IN DETAIL: The patient was brought to the operating suite and placed in the supine position on the operating table. A shoulder roll was placed and his head was turned to the right. He was prepped and draped in normal fashion for this procedure. A low horizontal incision was designed over the left lower neck approximately 4 cm in length. It was then carried out with a 15 blade to the area of the platysma. The platysma was sharply divided with the use of unipolar cautery. This took us down to the fascia overlying the sternocleidomastoid. The anterior border of the sternocleidomastoid was skeletonized and the sternocleidomastoid was then reflected laterally. The omohyoid was identified as was the ansa cervicalis. Dissection continued deeper until the node was identified and further dissected out. Hemostasis was obtained with the use of bipolar cautery. The node was dissected in its entirety and adjacent nodes were noted as well. The wound was then copiously irrigated and hemostasis achieved. A 10-Kazakh drain was brought out lateral to the sternocleidomastoid and left within the wound bed. It was secured with a suture of 2-0 silk. The platysma was reapproximated with interrupted sutures of 3-0 Vicryl and the skin closed with interrupted sutures of 4-0 Vicryl. Dermabond was then applied to theskin and the wound was covered with a gauze and medipore tape. At this time the patient's care was returned to the anesthesiologist. Dr. Rivas was present and actively participated throughout the entire procedure. Estimated blood loss was 40 mL. COMPLICATIONS: None. SPECIMENS: Were sent for fresh pathology and culture. DISPOSITION: Following an expected recovery the patient will be discharged tonight. He will follow-up with us tomorrow for drain removal. documented in this encounter Miscellaneous Notes * Miscellaneous Scans - Document, Scanned - 04/17/2012 9:24 AM CDT * Miscellaneous Scans - Document, Scanned - 03/30/2012 9:04 PM CDT * Miscellaneous Scans - Document, Scanned - 03/30/2012 9:04 PM CDT * Miscellaneous Scans - Document, Scanned - 03/30/2012 9:04 PM CDT * Miscellaneous Scans - Document, Scanned - 03/30/2012 9:04 PM CDT documented in this encounter Plan of Treatment Not on file documented as of this encounter Procedures Procedure Name Priority Date/Time Associated Diagnosis Comments IMAGING/RADIOLOGY/XR AY RESULTS ORDER 04/11/2012 9:04 AM CDT PATHOLOGY/CYTOLOGY REPORT ORDER 03/30/2012 9:04 PM CDT CULTURE AFB+SMEAR Routine 03/24/2012 6:3 0 PM CDT GROSS + MICRO EXAM Routine 03/24/2012 6: 30 PM CDT CULTURE FUNGUS OTHER Routine 03/24/2012 6:30 PM CDT CULTURE ANAEROBE Routine 03/24/2012 6:30 PM CDT CULTURE WOUND Routine 03/24/2012 6:30 PM CDT CHROMOSOME ANALYSIS TISSUE PANEL Routine 03/24/2012 12:00 AM CDT documented in this encounter Results * IMAGING/RADIOLOGY/XRAY RESULTS ORDER (04/11/2012 9:04 AM CDT) Anatomical Region Laterality Modality Other Narrative Transcriptions Document, Scanned - 04/11/2012 9:04 AM CDT Scanned Document IMAGING * PATHOLOGY/CYTOLOGY REPORT ORDER (03/30/2012 9:04 PM CDT) Narrative Transcriptions Document, Scanned - 03/30/2012 9:04 PM CDT Scanned Document LAB - PATHOLOGY/CYTO LOGY ORDERABLES * GROSS + MICRO EXAM (03/24/2012 6:30 PM CDT) [facility] Clinical History [facility] Comment: The patient is a 17-year-old boy, status post liver transplant, who presents with left cervical lymphadenopathy. ??The patient underwent excision of a left neck lymph node to rule-out posttransplant lymphoproliferative disorder. Gross Description [facility] Comment: Submitted fresh in one container for gross and microscopic examination, labeled with the patient's name, Adi Nichols, and left neck mass, is a [...] submitted in cassettes A1-A4. ??(CT/vr) Microscopic Examination [facility] Comment: A1: ??1 H+E, 1 [...] fungi and acid-fast and mycobacteria. ??(CS/rtc) Diagnosis [facility] Comment: DIAGNOSIS: LEFT NECK MASS: -CHRONIC GRANULOMATOUS LYMPHADENITIS, UNKNOWN ETIOLOGY (SEE MICROSCOPIC DESCRIPTION AND FLOW CYTOMETRY REPORT. COMMENT: ??The flow cytometry failed to reveal non-Hodgkin's lymphoma. (See complete report from [facility] signed by Dr. Viktor Up.) This case has been personally reviewed and interpreted by the attending (teaching) pathologist. Manager [employer]ATTS, [facility] Pathologist Alejandro johnson M.D. [facility] Electronically Signed By Alejandro johnson M.D. [facility] MASS / Unknown 03/24/2012 6: 30 PM CDT 03/24/2012 6:39 PM CDT Silverio Rivas MD LAB - PATHOLOGY/CYTO LOGY ORDERABLES Performing Organization Address [facility] Co de Phone Number [facility] [address] [place] [address] * CULTURE FUNGUS OTHER (03/24/2012 6:30 PM CDT) Result [facility] Comment: Final FUNGUS SMEAR No yeast or hyphae seen No growth of fungus Miscellaneous samples (specimen) TISSUE SPECIMEN / Unknown 03/24/2012 6:30 PM CDT 03/24/2012 7:24 PM CDT Narrative [facility] - 04/20/2012 10:11 AM CDT Performed By [facility];[address] [place] [address];[place] [address] Silverio Rivas MD LAB - MICROBIOLOGY O RDERABLES Performing Organization Address [facility] Co de Phone Number [facility] [address] [place] [phone] * CULTURE AFB+SMEAR (03/24/2012 6:30 PM CDT) Result [facility] Comment: Final ACCN COMMENT ??Left neck mass ACID FAST SMEAR No acid fast bacilli seen. No growth of Acid Fast Bacillus No growth of Acid Fast Bacillus Miscellaneous samples (specimen) TISSUE SPECIMEN / Unknown 03/24/2012 6:30 PM CDT 03/24/2012 7:24 PM CDT Narrative [facility] - 05/10/2012 1:29 PM CDT Performed By [facility];[address] [place] [address] Silverio Rivas MD LAB - MICROBIOLOGY O SARAH Performing Organization Address [facility] Co de Phone Number [facility] [address] [place] [address] * CULTURE ANAEROBE (03/24/2012 6:30 PM CDT) Result [facility] Comment: Final ACCN COMMENT ??LEFT NECK MASS CULTURE PROPIONIBACTERIUM ACNES ??Rare growth Miscellaneous samples (specimen) TISSUE SPECIMEN / Unknown 03/24/2012 6:30 PM CDT 03/24/2012 7:24 PM CDT Narrative [facility] - 04/04/2012 9:06 AM CDT Performed By [facility];[address] [place] [address] Silverio Rivas MD LAB - MICROBIOLOGY O SARAH Performing Organization Address [facility] Co de Phone Number [facility] [address] [place] [phone] * CULTURE WOUND (03/24/2012 6:30 PM CDT) Result [facility] Comment: Final ACCN COMMENT ??LEFT NECK MASS GRAM STAIN Heavy WBC's Moderate RBCs No organisms seen. CULTURE No growth Miscellaneous samples (specimen) TISSUE SPECIMEN / Unknown 03/24/2012 6:30 PM CDT 03/24/2012 7:24 PM CDT Narrative [facility] - 03/31/2012 7:28 AM CDT Performed By [facility];[address] [place] [address] Silverio Rivas MD LAB - MICROBIOLOGY O SARAH Performing Organization Address City/[facility] Co de Phone Number [facility] [address] [place] [phone] * CHROMOSOME ANALYSIS TISSUE PANEL (03/24/2012 12:00 AM CDT) Chromosome Analysis Solid Tiss See Scanned Report [facility] Comment Cytogenetics See Scanned Report [facility] TISSUE SPECIMEN / Unknown 03/24/2012 Silverio Rivas MD LAB - PATHOLOGY/CYTO LOGY ORDERABLES [facility] [address] [place] [address] documented in this encounter Visit Diagnoses Diagnosis Enlargement of lymph nodes documented in this encounter Administered Medications Inactive Administered Medications - up to 3 most recent administrations Medication Order MAR Action Action Date Dose Rate Site ceFAZolin (ANCEF) injection 1,350 mg 1,350 mg, Intravenous, INTRA-OP ONCE, 1 dose, Diluted in Sterile Water. Administer over 3 to 5 min. $ Given 03/24/2012 5:54 PM CDT 1,350 mg oxycodone-acetaminophen (PERCOCET) 5-325 MG tablet 1-2 Tab 1-2 tablet, Oral, EVERY 4 HOURS PRN, Pain, Starting on Brenda 03/24/12 at 1904, Until Wed03/25/12 at 0823, Maximum allowable Acetaminophen amount = 4 Grams (4000 mg) / 24 hours. $ Given 03/24/2012 7:46 PM CDT 2 tablets documented in this encounter Active and Recently Administered Medications Times are shown in CDT. Scheduled Medication Order 03/22/2012 03/23/2012 03/24/2012 ceFAZolin (ANCEF) injection 1,350 mg (COMPLETED) 1,350 mg, Intravenous, INTRA-OP ONCE, 1 dose, Diluted in Sterile Water. Administer over 3 to 5 min. 1754 ($ Given - Prov ider: Prashant Torre MD) PRN Medication Order 03/22/2012 03/23/2012 03/24/2012 oxycodone-acetaminophen (PERCOCET) 5-325 MG tablet 1-2 Tab (CANCELED) 1-2 tablet, Oral, EVERY 4 HOURS PRN, Pain, Starting on Brenda 03/24/12 at 1904, Until Wed03/25/12 at 0823, Maximum allowable Acetaminophen amount = 4 Grams (4000 mg) / 24 hours. 194 ($ Given - Prov ider: Ella Khan RN) documented in this encounter Care Teams Senior Product Marketing Manager Relationship Specialty Start Date End Date Vilma Spangler MD [address] [phone] PCP - General 01/05/11 documented as of this encounter
--- OUTSIDE RECORDS SUMMARY | 2024-10-28 05:57 | XMS_ITS | Encounter Summary ---
Author Organization [facility] Address [address] [facility] [place] [address] Care Team Providers Care Catalyst Concentration Operator Name Role Phone Vilma Spangler MD Primary Care Provider [phone] Encounter Details Date Type Department Care Team (Latest Contact Info) Description 09/14/2011 7:31 AM CLINIC PHYSICIAN - 09/14/2011 11:59 PM CLINIC PHYSICIAN Hospital Encounter [facility] at [address] [phone] Discharge Disposition: Home or Self Care Social [...] Sign Reading Time Taken Comments Blood Pressure 90/60 09/14/2011 7:00 AM CLINIC PHYSICIAN Pulse 68 09/14/2011 7:00 AM CLINIC PHYSICIAN Temperature 36 ??C (96.8 ??F) 09/14/2011 7:00 AM CLINIC PHYSICIAN Respiratory Rate 16 09/14/2011 7:00 AM CLINIC PHYSICIAN Oxygen Saturation 97% 09/14/2011 7:00 AM CLINIC PHYSICIAN Inhaled Oxygen Concentration - - Weight 54.2 kg (119 lb 7.8 oz) 09/14/2011 7:00 A M CLINIC PHYSICIAN Height 169.8 cm (5' 6.85 ) 09/14/2011 7:00 AM CS T Body Mass Index 18.8 09/14/2011 7:00 AM CLINIC PHYSICIAN Body Mass Index Percentile 6.75% 09/14/2011 7:0 0 AM CLINIC PHYSICIAN Growth Chart: CDC (Boys, 2-2 0 Years) [...] of this encounter Progress Notes * Papo Mcgrath RN - 09/14/2011 5:52 PM CST Pt arrived in clinic, triaged, and assessed by RN. Here for possible IVIG. Discussed with dr chavez and pt doing well at home. No c/o or symptoms. Per dr chavez to obtain labs only then d/c home. Labs obtained per #23 butterfly to LAC without difficulty. Pt d/c'd home ambulatory with dad. To RTC in [facility] for visit and labs only with dr chavez. IC PHYSICIAN * Philip Chavez MD - 09/14/2011 9:58 AM CST Recent Results (from the past 72 hour(s)) CBC W MANUAL DIFFERENTIAL Collection Time 09/14/11 8:10 AM Component Value Range WBC 6.51 4.5 - 11.0 (K/cumm) RBC 4.91 4.50 - 5.30 (mill/cumm) Hgb 15.9 13.0 - 16.0 (gm/dl) Hct 43.9 37.0 - 49.0 (%) MCV 89.4 78.0 - 98.0 (cu microns) MCH 32.4 25.0 - 35.0 (uug) MCHC 36.2 31.0 - 37.0 (%) RDW 12.[address] K/CUMM 200 100 - 400 (K/cumm) Manual Diff Comment Done Band Manual 2 Seg Manual 54 31 - 78 (%) Lymph Manual 22 13 - 54 (%) Gillespie Manual 14 (*) 4 - 13 (%) Eos Manual 5 0 - 8 (%) Baso Manual 3 (*) 0 - 1 (%) RBC Morph Slight Anisocytosis Poikylocytosis IGG BLOOD Collection Time 09/14/11 8:10 AM Component Value Range IgG 730 639 - 1349 (mg/dl) COMPREHENSIVE METABOLIC PANEL Collection Time 09/14/11 8:10 AM Component Value Range Sodium 143 137 - 145 (mmol/L) Potassium 3.9 3.5 - 5.1 (mmol/L) Chloride 108 (*) 98 - 107 (mmol/L) CO2 25.6 22 - 30 (mmol/L) Glucose 84 70 - 106 (mg/dl) BUN 16.4 8 - 21 (mg/dl) Calcium 9.2 8.9 - 10.7 (mg/dl) Bili Total 0.4 (*) 0.6 - 1.4 (mg/dl) Protein Total 6.6 6.3 - 8.6 (gm/dl) Albumin 3.9 3.7 - 5.6 (gm/dl) ALT/SGPT 28 10 - 40 (Units/L) AST/SGOT 30 10 - 45 (Units/L) Alk Phos 103 65 - 260 (Units/L) Creatinine 0.86 0.50 - 1.06 (mg/dl) Hypogammaglobulinemic following Rituximab. Recently with IgGs in the low to mid 700s prior to IVIG.Feeling fine. No complaints. No IVIG today. Plan to RTC in 1 month for labs. Counts great today. LFTs normal IC PHYSICIAN documented in this encounter Miscellaneous Notes * Miscellaneous Scans - Document, Scanned - 10/12/2011 9:09 PM CST IC PHYSICIAN documented in this encounter Plan of Treatment Not on file documented as of this encounter Procedures Procedure Name Priority Date/Time Associated Diagnosis Comments JOSE-DE LA CRUZ VIRUS PCR QUANT BLOOD/CSF Routine 09/14/2011 8:10 AM CLINIC PHYSICIAN Hypogammaglobuline justine (HCC) CBC W MANUAL DIFFERENTIAL Timed 09/14/2011 8:10 AM CLINIC PHYSICIAN Hypogammaglobuline justine (HCC) COMPREHENSIVE METABOLIC PANEL Timed 09/14/2011 8:10 AM CLINIC PHYSICIAN Hypogammaglobuline justine (HCC) IGG BLOOD Timed 09/14/2011 8:10 AM CLINIC PHYSICIAN Hypogammaglobuline justine (HCC) documented in this encounter Results * (ABNORMAL) COMPREHENSIVE METABOLIC PANEL (09/14/2011 8:10 AM CLINIC PHYSICIAN) [facility] Sodium 143 137 - 145 mmol/L [facility] Potassium 3.9 3.5 - 5.1 mmol/L [facility] Chloride 108(H) 98 - 107 mmol/L [facility] CO2 25.6 22 - 30 mmol/L [facility] Glucose 84 70 - 106 mg/dl [facility] BUN 16.4 8 - 21 mg/dl [facility] Calcium 9.2 8.9 - 10.7 mg/dl [facility] Bilirubin Total 0.4(L) 0.6 - 1.4 mg/dl [facility] Protein Total 6.6 6.3 - 8.6 gm/dl [facility] Albumin 3.9 3.7 - 5.6 gm/dl [facility] ALT 28 10 - 40 Units/L [facility] AST 30 10 - 45 Units/L [facility] Alkaline Phosphatase 103 65 - 260 Units/L [facility] Creatinine 0.86 0.50 - 1.06 mg/dl [facility] Blood specimen (specimen) BLOOD SPECIMEN / Unknown 09/14/2011 8:10 AM CLINIC PHYSICIAN 09/14/2011 8:27 AM CLINIC PHYSICIAN Philip Chavez MD LAB - CHEMISTRY O RDERABLES Performing Organization Address City/State/[facility] Co de Phone Number [facility] [place] [address] * JOSE-BAR VIRUS PCR QUANTITATIVE BLOOD (09/14/2011 8:10 AM CLINIC PHYSICIAN) [facility] Jose-De La Cruz Virus DNA PCR Quantitative 6211 copies of EBV DNA/mL of whole blood. NO EBV DNA detected Copies/mL [facility] Jose-De La Cruz Virus DNA Quantitative log copy 3.79 log 10 copies/ml log 10 copies/mL [facility] Comment EBV PCR [facility] Comment: This assay has a lower [...] ??EBV levels can vary by speimen type: [facility] uses whole blood which is more [...] characteristics determined by the [facility]. ??It has not been cleared or approved [...] clinical laboratory testing. BLOOD SPECIMEN / Unknown 09/14/2011 8:10 AM CLINIC PHYSICIAN 09/14/2011 8:26 AM CLINIC PHYSICIAN Philip Chavez MD LAB - MICROBIOLOG Y ORDERABLES [facility] [address] [facility] [place] [address] * IGG BLOOD (09/14/2011 8:10 AM CLINIC PHYSICIAN) IgG 730 639 - 1349 mg/dl [facility] Blood specimen (specimen) BLOOD SPECIMEN / Unknown 09/14/2011 8:10 AM CLINIC PHYSICIAN 09/14/2011 8:27 AM CLINIC PHYSICIAN Philip Chavez MD LAB - CHEMISTRY O RDERABLES Performing Organization Address [facility] Co de Phone Number [facility] [address] [place] [address] * (ABNORMAL) CBC W MANUAL DIFFERENTIAL (09/14/2011 8:10 AM CLINIC PHYSICIAN) WBC 6.51 4.5 - 11.0 K/cumm [facility] RBC 4.91 4.50 - 5.30 mill/cumm [facility] Hemoglobin 15.9 13.0 - 16.0 gm/dl [facility] Hematocrit 43.9 37.0 - 49.0 % [facility] MCV 89.4 78.0 - 98.0 cu microns [facility] MCH 32.4 25.0 - 35.0 uug [facility] MCHC 36.2 31.0 - 37.0 % [facility] RDW 12.7 % [facility] MPV 10.1 fl [facility] Platelet Count 200 100 - 400 K/cumm [facility] Comment Manual Diff Done [facility] Band % Manual 2 % [facility] Neutrophils % Manual 54 31 - 78 % [facility] Lymphocytes % Manual 22 13 - 54 % [facility] Monocytes % Manual 14(H) 4 - 13 % [facility] Eosinophils % Manual 5 0 - 8 % [facility] Basophils % Manual 3(H) 0 - 1 % [facility] RBC Morphology Slight Anisocytosis Poikylocytosis [facility] BLOOD SPECIMEN / Unknown 09/14/2011 8:10 AM CLINIC PHYSICIAN 09/14/2011 8:27 AM CLINIC PHYSICIAN Philip Chavez MD LAB - HEMATOLOGY ORDERABLES Performing Organization Address [facility]/ZIP Co de Phone Number [facility] [address] [place] [address] documented in this encounter Visit Diagnoses Diagnosis Hypogammaglobulinemia (HCC) Hypogammaglobulinaemia, unspecified documented in this encounter Care Teams Catalyst Concentration Operator Relationship Specialty Start Date End Date Vilma Spangler MD [address] [facility] [address] [place] [address] PCP - General 01/05/11 documented as of this encounter
--- OUTSIDE RECORDS SUMMARY | 2024-10-28 05:57 | XMS_ITS | Encounter Summary ---
Author Organization [facility] Address [address] [facility] [place] [address] Care Team Providers Care Photographic Enlarger Operator Name Role Phone Vilma Spangler MD Primary Care Provider [phone] Reason for Visit * (Routine) - Closed Specialty Diagnoses / Procedures Referred By Sascha t Referred To Contact Pediatric Hematology and Oncology / Oncology-Medical [facility] Philip Chavez MD [address] [place] [phone] Referral ID Status Reason Start Date Expiration Date Visits Re quested Visits Authorized [id number] Closed 08/09/2012 02/05/2013 10 10 Encounter Details Date Type Department Care Team (Late st Contact Info) Description 10/11/2012 8:25 AM WINDSHIELD WIPER REPAIRER - 10/11/2012 11:59 PM WINDSHIELD WIPER REPAIRER Hospital Encounter [facility] at [address] [address] Philip Chavez MD [address] [place] [phone] Discharge Disposition: Home or Self Care [...] Sign Reading Time Taken Comments Blood Pressure 84/54 10/11/2012 8:30 AM WINDSHIELD WIPER REPAIRER Pulse 67 10/11/2012 8:30 AM WINDSHIELD WIPER REPAIRER Temperature 35.6 ??C (96 ??F) 10/11/2012 8:30 AM WINDSHIELD WIPER REPAIRER Respiratory Rate 18 10/11/2012 8:30 AM WINDSHIELD WIPER REPAIRER Oxygen Saturation 98% 10/11/2012 8:30 AM WINDSHIELD WIPER REPAIRER Inhaled Oxygen Concentration - - Weight 54.5 kg (120 lb 2.4 oz) 10/11/2012 8:30 A M WINDSHIELD WIPER REPAIRER Height 169.8 cm (5' 6.85 ) 10/11/2012 8:30 AM CS T Body Mass Index 18.9 10/11/2012 8:30 AM WINDSHIELD WIPER REPAIRER documented in this encounter Medications at Time [...] as of this encounter Progress Notes * Radha Herrera RN - 10/11/2012 12:22 PM CST Patient came to clinic for scheduled labs. Labs obtained from patients left AC via butterfly needle. Patient was seen by DR. Chavez. No IVIG was administer because per MD patient received last week inthe ER. Patient will return next week for labs. Patient was discharged ambulatory by Dr. Chavez. SHIELD WIPER REPAIRER * Philip Chavez MD - 10/11/2012 10:15 AM CST Hematology/Oncology Progress Note 10/11/2012 Beka Nichols PCP: Vilma Spangler Diagnosis: Autoimmune [...] 28 Tab 0 Interval History Received IVIG last week without difficulty. Feeling well. No bleeding issues. Appetite good. Past Medical History: unchanged Family Medical History: unchanged Social History: unchanged Review of Systems: 1) General: Fever: no Wt/appetite change: no Other:no 2) Heme: Bruising: no Other:no 3) Skin: Rash: no Other: no 4) ENT: Congestion:no Rhinorrhea: no Epistaxis: no Sore Throat: no Change in Hearing: N/A Earache:no Stomatitis: no 5) Resp/CV: Shortness of Breath: [...] Nutritional Status: good Physical Exam Constitutional: BP 84/54 Pulse 67 Temp 96 ??F Resp 18 Ht 1.698 m (5' 6.85 ) Wt 54.5 kg (120 lb 2.4 oz) BMI 18.90 kg/m2 SpO2 98% BSA (Calculated): 1.6 General Appearance: Awake and alert. HERNANDO Head: No nasal congestion or discharge Skin: no rashes, bruises, or petechiae, Ears: tympanic membranes normal Eyes: anicteric: pupils [...] ROM Neuro: nonfocal Lab and/or Imaging Studies Platelet count 115 Procedures None Assessment 17 y.o. male with recent exacerbation of autoimmune thrombocytopenia Good increase in platelet count post-IVIG on 10/07/13 Responses have been relatively transient Plan/Follow-Up Recheck cbc in 1 week SHIELD WIPER REPAIRER documented in this encounter Miscellaneous Notes * Miscellaneous Scans - Document, Scanned - 11/21/2012 11:15 PM CST SHIELD WIPER REPAIRER documented in this encounter Plan of Treatment Not on file documented as of this encounter Procedures Procedure Name Priority Date/Time Associated Diagnosis Comments JOSE-DE LA CRUZ VIRUS PCR QUANT BLOOD/CSF Routine 10/11/2012 9:18 AM WINDSHIELD WIPER REPAIRER Neutropenia associated with autoimmune disease (HCC) CBC W AUTO DIFFERENTIAL ZAHRA 10/11/2012 9:18 AM WINDSHIELD WIPER REPAIRER Neutropenia associated with autoimmune disease (HCC) documented in this encounter Results * (ABNORMAL) JOSE-BAR VIRUS PCR QUANTITATIVE BLOOD (10/11/2012 9:18 AM WINDSHIELD WIPER REPAIRER) Jose-De La Cruz Virus DNA PCR Quantitative POSITIVE for EBV DNA but below level of accurate quantitatio n(A) No EBV DNA detected 10/12/2012 7:41 AM WINDSHIELD WIPER REPAIRER [facility] Blood specimen (specimen) BLOOD SPECIMEN / Unknown 10/11/2012 9:18 AM WINDSHIELD WIPER REPAIRER 10/11/2012 9:27 AM WINDSHIELD WIPER REPAIRER Narrative [facility] - 10/12/2012 7:41 AM WINDSHIELD WIPER REPAIRER This assay has a lower limit of [...] ??EBV levels can vary by ??specimen type: [facility] uses whole blood which is more sensitive [...] - MICROBIOLOG Y ORDERABLES Performing Organization Address City/State/[facility] de Phone Number [facility] [address] [place] [address] * (ABNORMAL) CBC W AUTO DIFFERENTIAL (10/11/2012 9:18 AM WINDSHIELD WIPER REPAIRER) WBC 5.4 4.4 - 10.7 x10^9/L 10/11/2012 9:52 AM [facility] RBC 4.50 3.80 - 5.40 x10^12/L 10/11/2012 9:52 AM [facility] Hemoglobin 13.7 12.0 - 17.6 g/dL 10/11/2012 9:52 AM [facility] Hematocrit 37.8 35.2 - 51.7 % 10/11/2012 9:52 AM [facility] MCV 86.1 80.7 - 98.3 fl 10/11/2012 9:52 AM [facility] MCH 31.2 26.7 - 34.0 pg 10/11/2012 9:52 AM [facility] MCHC 36.2(H) 30.8 - 35.9 gm/dL 10/11/2012 9:52 AM [facility] RDW-CV 12.8 12.1 - 14.9 % 10/11/2012 9:52 AM [facility] MPV 11.0 9.4 - 12.9 fl 10/11/2012 9:52 AM [facility] Neutrophils % 62 44 - 73 % 10/11/2012 9:52 AM [facility] Lymphocytes % 24 20 - 43 % 10/11/2012 9:52 AM [facility] Monocytes % 12 5 - 13 % 10/11/2012 9:52 AM [facility] Eosinophils % 2 0 - 6 % 10/11/2012 9:52 AM [facility] Basophils % 0 0 - 2 % 10/11/2012 9:52 AM [facility] Immature Granulocytes 0.4 0 - 1 % 10/11/2012 9:52 AM [facility] Neutrophil Absolute 3.37 2.01 - 7.14 x10^9/L 10/11/2012 9:52 AM [facility] Lymphocytes Absolute 1.31 1.07 - 3.94 x10^9/L 10/11/2012 9:52 AM [facility] Monocytes Absolute 0.63 0.26 - 1.07 x10^9/L 10/11/2012 9:52 AM [facility] Eosinophils Absolute 0.10 0 - 0.47 x10^9/L 10/11/2012 9:52 AM [facility] Basophils Absolute 0.01 0 - 0.08 x10^9/L 10/11/2012 9:52 AM [facility] Immature Granulocytes Absolute 0.02 0.00 - 0.06 x10^9/L 10/11/2012 9:52 AM [facility] Platelet Count 115(L) 153 - 416 x10^9/L 10/11/2012 9:52 AM [facility] Blood specimen (specimen) BLOOD SPECIMEN / Unknown 10/11/2012 9:18 AM WINDSHIELD WIPER REPAIRER 10/11/2012 9:27 AM [facility] Philip Chavez MD LAB - HEMATOLOGY ORDERABLES Performing Organization Address City/State/[place] Co de Phone Number [facility] [address] [place] [address] documented in this encounter Visit Diagnoses Diagnosis Neutropenia associated with autoimmune disease (HCC) Other neutropenia Hypogammaglobulinemia (HCC) Hypogammaglobulinaemia, unspecified documented in this encounter Care Teams Photographic Enlarger Operator Relationship Specialty Start Date End Date Vilma Spangler MD [address] [facility] [address] [place] [address] PCP - General 01/05/11 documented as of this encounter
--- OUTSIDE RECORDS SUMMARY | 2024-10-28 05:57 | XMS_ITS | Encounter Summary ---
Author Organization [facility] Address [address] [facility] [place] [address] Care Team Providers Care Social Sciences Lecturer Name Role Phone Vilma Spangler MD Primary Care Provider [phone]- [phone] Reason for Visit * Reason Onset Date Comments MEDICATION REFILL 03/14/2012 Encounter Details Date Type Department Care Team (Late st Contact Info) Description 03/14/2012 Refill [facility] Pediatrics - GI [address] [place] [address] Houston Chao MD [address] [facility] [address] [place] [id number] MEDICATION REFILL Social History Tobacco Use Types [...] Miscellaneous Notes * Telephone Encounter - Batool Mcdermott RN - 03/14/2012 12:19 PM CDT Prescription called to [facility] at [phone] for prograf 1mg capsules per mom's request. documented in this encounter Plan of Treatment Not on file documented as of this encounter Visit Diagnoses Not on filedocumented in this encounter Care Teams Social Sciences Lecturer Relationship Specialty Start Date End Date Vilma Spangler MD [address] [address] PCP - General 01/05/11 documented as of this encounter
--- OUTSIDE RECORDS SUMMARY | 2024-10-28 05:57 | XMS_ITS | Encounter Summary ---
Author Organization [facility] Address [address] [facility] [place] [address] Care Team Providers Care Petrographer Name Role Phone Vilma Spangler MD Primary Care Provider [phone]- [phone] Reason for Visit * Reason Onset Date Comments MEDICATION REFILL 11/09/2011 Encounter Details Date Type Department Care Team (Late st Contact Info) Description 11/09/2011 Refill [facility] Pediatrics - GI [address] [place] [address] Houston Chao MD [address] [facility] [address] [place] [phone] MEDICATION REFILL Social History Tobacco Use Types [...] on filedocumented in this encounter Care Teams Petrographer Relationship Specialty Start Date End Date Vilma Spangler MD [address] [address] PCP - General 01/05/11 documented as of this encounter
--- OUTSIDE RECORDS SUMMARY | 2024-10-28 05:57 | XMS_ITS | Encounter Summary ---
Author Organization [facility] Address [address] [place] [address] Care Team Providers Care Aviation Safety Inspector Name Role Phone Vilma Spangler MD Primary Care Provider Encounter Details Date Type Department Care Team (Latest Contact Info) Description 01/07/2012 6:56 AM WOOL MIXER - 01/07/2012 11:59 PM WOOL MIXER Hospital Encounter [facility] at [address] [address] Discharge Disposition: Home or Self Care Social [...] Sign Reading Time Taken Comments Blood Pressure 90/46 01/07/2012 11:50 AM WOOL MIXER Pulse 70 01/07/2012 11:50 AM WOOL MIXER Temperature 36 ??C (96.8 ??F) 01/07/2012 7:00 AM WOOL MIXER Respiratory Rate 16 01/07/2012 11:50 AM WOOL MIXER Oxygen Saturation 97% 01/07/2012 7:00 AM WOOL MIXER Inhaled Oxygen Concentration - - Weight 54 kg (119 lb 0.8 oz) 01/07/2012 7:00 AM WOOL MIXER Height 169.2 cm (5' 6.61 ) 01/07/2012 7:00 AM CS T Body Mass Index 18.86 01/07/2012 7:00 AM WOOL MIXER Body Mass Index Percentile 6.12% 01/07/2012 7:0 0 AM WOOL MIXER Growth Chart: CDC (Boys, 2-2 0 Years) documented in this encounter Discharge Instructions * Discharge Instructions* Document, Scanned - 01/07/2012 8:52 PM WOOL MIXER MIXER documented in this encounter Medications at Time of Discharge Medication Sig Dispensed Refills Start Date End Date tacrolimus (PROGRAF) 1 MG capsule Take 1 mg by mouth 2 times daily. 03/14/2012 documented as of this encounter Progress Notes * Papo Mcgrath RN - 01/07/2012 2:22 PM CST Pt arrived in clinic, triaged, and assessed by RN. Here for scheduled IVIG. PIV #24 inserted into LAC without difficulty. Labs obtained and sent. NS flushes well. Premedication of tylenol and benadryl given PO. IVIG infusion started and titrated per orders. Pt tolerated well with VSS throughout. Infusion completed within about 2 hours. PIV d/c'd intact and bandaid applied. Discharge instructions given to pt to RTC in 6 weeks for visit with Dr Chavez and IVIG. Pt d/c'd home ambulatory with dad. MIXER * Philip Chavez MD - 01/07/2012 9:18 AM CST Hematology/Oncology Progress Note 01/07/2012 Beka Nichols PCP: Vilma Spangler MD Diagnosis: Autoimmune Thrombocytopenia/Autoimmune Neutropenia Interval History: Beka is over 2 years out from Rituximab. Continues to feel well. Appetite OK. No fevers. Active. Planning on going back to school. No Known Allergies Current Outpatient Prescriptions Medication Sig Dispense Refill ??? tacrolimus (PROGRAF) 1 MG capsule Take 1 mg by mouth 2 times daily. Current Facility-Administered Medications Medication Dose Route Frequency Provider Last Rate Last Dose ??? dextrose 5 % infusion Intravenous Continuous Philip Chavez MD ??? immune globulin (human) (PRIVIGEN) 10 % infusion 27 g 0.5 g/kg Intravenous Continuous Philip Chavez MD ??? diphenhydrAMINE (BENADRYL) tablet 50 mg 50 mg Oral Once Philip Chavez MD 50 mg at 01/07/12 0844 ??? acetaminophen (TYLENOL) tablet 650 mg 650 mg Oral Once Philip Chavez MD 650 mg at 01/07/12 0844 Review of Systems: 1) General Fever: no Wt/appetite change: no 2) Hem Bruising: no Other:no 3) Skin [...] with parents, sibs. Physical Exam Constitutional: BP 94/56 Pulse 76 Temp 96.8 ??F Resp 20 Ht 1.692 m (5' 6.61 ) Wt 54 kg (119 lb 0.8 oz) BMI 18.86 kg/m2 SpO2 97% BSA (Calculated): 1.59 General Appearance: No acute distress. Awake and alert Head: No nasal congestion or discharge. Skin: no rashes, bruises, or petechiae Eyes: anicteric: pupils equal, round, reactive to light; intact extra-ocular movements Mouth/throat: no sores, erythema, exudates, or mucosal pallor. Neck: supple without masses Lymph nodes: no palpable lymphadenopathy Chest: lungs clear to auscultation Heart: normal S1 and S2, no murmur Abdomen: soft, non-tender, no masses or hepatosplenomegaly Genitalia: deferred Extremities: no focal swelling or tenderness; full ROM. New large tatoo in the shape of a crucifix on right upper arm Neuro: nonfocal Lab and/or Imaging Studies Recent Results (from the past 72 hour(s)) CBC W AUTO DIFFERENTIAL Collection Time 01/07/12 8:00 AM Component Value Range WBC 7.47 4.5 - 11.0 (K/cumm) RBC 4.32 (*) 4.50 - 5.30 (mill/cumm) Hgb 14.0 13.0 - 16.0 (gm/dl) Hct 38.5 37.0 - 49.0 (%) MCV 89.1 78.0 - 98.0 (cu microns) MCH 32.4 25.0 - 35.0 (uug) MCHC 36.4 31.0 - 37.0 (%) RDW 14.[address] 290 100 - 400 (K/cumm) Manual Diff Comment Done JOSE-BAR VIRUS PCR QUANTITATIVE BLOOD Collection Time 01/07/12 8:00 AM Component Value Range EBV DNA Quant PCR 7633 copies of EBV DNA/mL of whole blood. NO EBV DNA detected (Copies/mL) EBV DNA Quant 3.88 log 10 copies/ml EBV PCR Comment IGG BLOOD Collection Time 01/07/12 8:00 AM Component Value Range IgG 705 639 - 1349 (mg/dl) DIFFERENTIAL MANUAL Collection Time 01/07/12 8:00 AM Component Value Range Manual Diff Comment Done Seg Manual 59 31 - 78 (%) Lymph Manual 24 13 - 54 (%) Bollinger Manual 14 (*) 4 - 13 (%) Eos Manual 3 0 - 8 (%) RBC Morph Normal Assessment 1. 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 Ultimately treated with Rituximab in late 2008. EBV PCR remains positive and quantifiable. Slightly lower viral load today. No specific symptoms. Counts remain normal. 2. Immune suppression: Patient on chronic tacrolimus for liver transplant. 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 IVIG held recently with subsequent reoccurrence of lethargy. IVIG replacement resumed. Remains well. No recent infections Plan 1. CBC, Liver functions 2. EBV PCR sent -Follow serial EBV PCR. 3. IVIG 500 mg/kg 4. Space out IVIG to every 6 weeks MIXER documented in this encounter Plan of Treatment Not on file documented as of this encounter Procedures Procedure Name Priority Date/Time Associated Diagnosis Comments JOSE-DE LA CRUZ VIRUS PCR QUANT BLOOD/CSF Routine 01/07/2012 8:00 AM WOOL MIXER Neutropenia associated with autoimmune disease (HCC) DIFFERENTIAL MANUAL Timed 01/07/2012 8 :00 AM WOOL MIXER CBC W AUTO DIFFERENTIAL Timed 01/07/2012 8:00 AM WOOL MIXER Neutropenia associated with autoimmune disease (HCC) IGG BLOOD Timed 01/07/2012 8:00 AM WOOL MIXER Hypogammaglobulinem ia (HCC) documented in this encounter Results * (ABNORMAL) DIFFERENTIAL MANUAL (01/07/2012 8:00 AM WOOL MIXER) Pathologist [facility] Comment Manual Diff Done [facility] Neutrophils % Manual 59 31 - 78 % [facility] Lymphocytes % Manual 24 13 - 54 % [facility] Monocytes % Manual 14(H) 4 - 13 % [facility] Eosinophils % Manual 3 0 - 8 % [facility] RBC Morphology Normal [facility] BLOOD SPECIMEN / Unknown 01/07/2012 8:00 AM WOOL MIXER 01/07/2012 8:49 AM WOOL MIXER Cindi Malloy MD LAB - HEMATOLOGY ORD ERABLES Performing Organization Address [facility] Co de Phone Number [facility] [address] [place] [address] * IGG BLOOD (01/07/2012 8:00 AM WOOL MIXER) [facility] IgG 705 639 - 1349 mg/dl [facility] Blood specimen (specimen) BLOOD SPECIMEN / Unknown 01/07/2012 8:00 AM WOOL MIXER 01/07/2012 8:33 AM WOOL MIXER Philip Chavez MD LAB - CHEMISTRY O RDERABLES Performing Organization Address [facility] Co de Phone Number [facility] [address] [place] [address] * JOSE-BAR VIRUS PCR QUANTITATIVE BLOOD (01/07/2012 8:00 AM WOOL MIXER) [facility] Jose-De La Cruz Virus DNA PCR Quantitative 7633 copies of EBV DNA/mL of whole blood. NO EBV DNA detected Copies/mL [facility] Jose-De La Cruz Virus DNA Quantitative log copy 3.88 log 10 copies/ml log 10 copies/mL [facility] Comment EBV PCR [facility] Comment: This [...] ??EBV levels can vary by speimen type: [facility] uses whole blood which is [...] characteristics determined by the [facility]. ??It has not been cleared or [...] Miscellaneous samples (specimen) BLOOD SPECIMEN / Unknown 01/07/2012 8:00 AM WOOL MIXER 01/07/2012 8:32 AM WOOL MIXER Philip Chavez MD LAB - MICROBIOLOG Y ORDERABLES [facility] [address] [place] [address] * (ABNORMAL) CBC W AUTO DIFFERENTIAL (01/07/2012 8:00 AM WOOL MIXER) WBC 7.47 4.5 - 11.0 K/cumm [facility] RBC 4.32(L) 4.50 - 5.30 mill/cumm [facility] Hemoglobin 14.0 13.0 - 16.0 gm/dl [facility] Hematocrit 38.5 37.0 - 49.0 % [facility] MCV 89.1 78.0 - 98.0 cu microns [facility] MCH 32.4 25.0 - 35.0 uug [facility] MCHC 36.4 31.0 - 37.0 % [facility] RDW 14.0 % [facility] MPV 10.1 fl [facility] Platelet Count 290 100 - 400 K/cumm [facility] Comment Manual Diff Done [facility] Blood specimen (specimen) BLOOD SPECIMEN / Unknown 01/07/2012 8:00 AM WOOL MIXER 01/07/2012 8:33 AM WOOL MIXER Philip Chavez MD LAB - HEMATOLOGY ORDERABLES [facility] [address] [place] [address] documented in this encounter Visit Diagnoses Diagnosis Hypogammaglobulinemia (HCC) Hypogammaglobulinaemia, unspecified Neutropenia associated with autoimmune disease (HCC) Other neutropenia documented in this encounter Administered Medications Inactive Administered Medications - up to 3 most recent administrations Medication Order MAR Action Action Date Dose Rate Site acetaminophen (TYLENOL) tablet 650 mg 650 mg, Oral, ONCE, 1 dose, On Brenda 01/07/12 at 1100, Administer one (1) hour prior to IVIG administration. $ Given 01/07/2012 8:44 AM WOOL MIXER 650 mg diphenhydrAMINE (BENADRYL) tablet 50 mg 50 mg, Oral, ONCE, 1 dose, On Brenda 12 at 1100, Administer one (1) hour prior to IVIG administration. $ Given 01/07/2012 8:44 AM WOOL MIXER 50 mg immune globulin (human) (PRIVIGEN) 10 % infusion 25 g 25 g, Intravenous, CONTINUOUS, Starting on Brenda 01/07/12 at 1100, Until Brenda 01/07/12 at 1259, Intravenous, CONTINUOUS for 2 hours, Initiate infusion [...] half the previous rate. $ New Bag/Syringe 01/07/2012 9:38 AM WOOL MIXER 25 g 32 mL/hr documented in this encounter Care Teams Aviation Safety Inspector Relationship Specialty Start Date End Date Vilma Spangler MD [address] [facility] [address] [place] [id number] PCP - General 01/05/11 documented as of this encounter
--- OUTSIDE RECORDS SUMMARY | 2024-10-28 05:57 | XMS_ITS | Encounter Summary ---
Author Organization [facility] Address [address] [place] [address] Care Team Providers Care Twill Cutter Name Role Phone Vilma Spangler MD Primary Care Provider [phone] Reason for Visit * - Closed Specialty Diagnoses / Procedures Referred By Contyadira t Referred To Contact Diagnoses Neutropenia associated with autoimmune disease (HCC) Procedures CT ABDOMEN WITH IV CONTRAST Philip Chavez MD [address] [place] [id number] [facility] [place] [place] [address] [place] [phone] Referral ID Status Reason Start Date Expiration Date Visits Re quested Visits Authorized [id number] Closed 10/20/2012 04/18/2013 1 1 Encounter Details Date Type Department Care Team (Late st Contact Info) Description 10/27/2012 8:18 AM MATERIAL ASSEMBLER - 10/27/2012 10:22 AM [facility] Hospital Encounter [facility] - CT Scan [address] [place] [id number] Philip Chavez MD [address] [place] [phone] Discharge Disposition: Home or Self Care [...] 03/14/2012 12/28/2012 documented as of this encounter Plan of Treatment Not on file documented as of this encounter Procedures Procedure Name Priority Date/Time Associated Diagnosis Comments CT ABDOMEN PELVIS W CONTRAST Routine 10/27/2012 8:49 AM MATERIAL ASSEMBLER Neutropenia associated with autoimmune disease (HCC) documented in this encounter Results * CT ABDOMEN AND PELVIS WITH IV CONTRAST (10/27/2012 8:49 AM MATERIAL ASSEMBLER) Anatomical Region Laterality Modality Abdomen, Pelvis Computed Tomogra phy 10/27/2012 8:58 AM MATERIAL ASSEMBLER Impressions 10/27/2012 9:57 AM MATERIAL ASSEMBLER Post liver transplant without acute disease process. D: Dl Carpenter D.O. Narrative 10/27/2012 9:57 AM MATERIAL ASSEMBLER EXAMINATION:CT scan of the abdomen, and pelvis [...] pelvis is identified. Procedure Note Joshua Scott - 10/27/2012 EXAMINATION:CT scan of the abdomen, [...] liver transplant without acute disease process. D: Camilo PulidoO. Philip Chavez MD CT ORDERABLES documented in this encounter Visit Diagnoses Diagnosis Neutropenia associated with autoimmune disease (HCC) Other neutropenia documented in this encounter Administered Medications Inactive Administered Medications - up to 3 most recent administrations Medication Order MAR Action Action Date Dose Rate Site ioversol (OPTIRAY 320) 68 % injection Intravenous, CONTRAST ONCE, Starting on Brenda 10/27/12 at 0833, Until 10/28/12 at 0123 $ Given 10/27/2012 8:35 AM MATERIAL ASSEMBLER 80 mL documented in this encounter Care Teams Twill Cutter Relationship Specialty Start Date End Date Vilma Spangler MD [address] [facility] [address] [place] [address] PCP - General 01/05/11 documented as of this encounter
--- OUTSIDE RECORDS SUMMARY | 2024-10-28 05:57 | XMS_ITS | Encounter Summary ---
Author Organization [facility] Address [address] [place] [address] Care Team Providers Care Section Weaver Name Role Phone Vilma Spangler MD Primary Care Provider [phone] Reason for Visit * Reason Onset Date Comments Swelling Facial 03/08/2012 Encounter Details Date Type Department Care Team (Late st Contact Info) Description 03/08/2012 Telephone [facility] at [address] [address] Dariela Winston RN Swelling Facial Social History Tobacco Use Types Packs/Day Years [...] Miscellaneous Notes * Telephone Encounter - Dariela Ly RN - 03/08/2012 10:39 AM CDT Mom called stating that Beka has a small scratch at jawline for several days and this morning hisface is swollen with eye partial closed. No fever, redness or drainage noted. notifed and instructed mom to see PCP today or go to ER for evaluation. Mom verbalized understanding and will call with update. Beka is due for IVIG 03/[facility]. documented in this encounter Plan of Treatment Not on file documented as of this encounter Visit Diagnoses Not on filedocumented in this encounter Care Teams Section Weaver Relationship Specialty Start Date End Date Vilma Spangler MD [address] [facility] [address] [place] [address] PCP - General 01/05/11 documented as of this encounter
--- OUTSIDE RECORDS SUMMARY | 2024-10-28 05:57 | XMS_ITS | Encounter Summary ---
Author Organization [facility] Address [address] [place] [address] Care Team Providers Care Roading Engineer Name Role Phone Vilma Spangler MD Primary Care Provider [phone]- [phone] Encounter Details Date Type Department Care Team (Latest Contact Info) Description 07/20/2011 7:45 AM CDT - 07/20/2011 11:59 PM CDT Hospital Encounter The [facility] at [address] [phone] Discharge Disposition: Home or Self Care Social [...] Sign Reading Time Taken Comments Blood Pressure 94/48 07/20/2011 11:15 AM CDT Pulse 68 07/20/2011 11:15 AM CDT Temperature 36 ??C (96.8 ??F) 07/20/2011 7:00 AM CDT Respiratory Rate 22 07/20/2011 11:1 5 AM CDT Oxygen Saturation 98% 07/20/2011 7:00 AM CDT Inhaled Oxygen Concentration - - Weight 53.3 kg (117 lb 8.1 oz) 07/20/2011 7:00 A M CDT Height 169.2 cm (5' 6.61 ) 07/20/2011 7:00 AM CD T Body Mass Index 18.62 07/20/2011 7:00 AM CDT Body Mass Index Percentile 6.03% 07/20 7:00 AM CDT Growth Chart: CDC (Boys, 2-2 0 Years) documented in this encounter Discharge Instructions * Discharge Instructions* Document, Scanned - 07/20/2011 8:03 PM CDT documented in this encounter Medications at Time of Discharge Medication Sig Dispensed Refills Start Date End Date cefDINIR (OMNICEF) 300 MG capsule Take 300 mg by mouth 2 times daily. For 10 days. 12/10/2011 tacrolimus (PROGRAF) 1 MG capsule Take 1 mg by mouth 2 times daily. 03/14/2012 documented as of this encounter Progress Notes * Anastasia Fox RN - 07/20/2011 10:42 AM CDT Arrived to clinic with Sister and sister's boyfriend for scheduled IVIG infusion. Patient triaged and assessed by RN. Dr. Chavez notified for orders. 24 gauge piv placed x2 attempts to right ac. Labs collected and sent. Tylenol and Benadryl given for premeds. IVIG infused per titration rate recommendations. VSS. Patient seen by Dr. Chavez. Patient tolerated IVIG well. No reaction noted. IVIG complete with flush at 1225. Right AC piv removed with catheter intact. Patient to RTC in 4 weeks for IVIG. Patient discharged to home and left ambulatory without any complaints. documented in this encounter Miscellaneous Notes * Miscellaneous Scans - Document, Scanned - 09/05/2011 3:02 PM CDT documented in this encounter Plan of Treatment Not on file documented as of this encounter Procedures Procedure Name Priority Date/Time Associated Diagnosis Comments JOSE-DE LA CRUZ VIRUS PCR QUANT BLOOD/CSF Routine 07/20/2011 9:30 AM CDT 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) CBC W AUTO DIFFERENTIAL Timed 07/20/2011 9:00 AM CDT 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) COMPREHENSIVE METABOLIC PANEL Timed 07/20/2011 9:00 AM CDT 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) IGG BLOOD Timed 07/20/2011 9:00 AM CDT 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) documented in this encounter Results * JOSE-BAR VIRUS PCR QUANTITATIVE BLOOD (07/20/2011 9:30 AM CDT) [facility] Jose-De La Cruz Virus DNA PCR Quantitative NO EBV DNA detected NO EBV DNA detected Copies/mL [facility] Comment EBV PCR [facility] Comment: This assay has [...] ??EBV levels can vary by speimen type: [facility] uses whole blood which is [...] determined by the [facility]rology Laboratory of [facility]. ??It has not been cleared [...] clinical laboratory testing. BLOOD SPECIMEN / Unknown 07/20/2011 9:30 AM CDT 07/20/2011 9:45 AM CDT Philip Chavez MD LAB - MICROBIOLOG Y ORDERABLES Performing Organization Address [facility] Co de Phone Number [facility] [address] [place] [address] * IGG BLOOD (07/20/2011 9:00 AM CDT) IgG 738 639 - 1349 mg/dl [facility] BLOOD SPECIMEN / Unknown 07/20/2011 9:00 AM CDT 07/20/2011 9:15 AM CDT Philip Chavez MD LAB - CHEMISTRY O RDERABLES Performing Organization Address [facility] de Phone Number [facility] [address] [place] [address] * (ABNORMAL) COMPREHENSIVE METABOLIC PANEL (07/20/2011 9:00 AM CDT) Sodium 144 137 - 145 mmol/L [facility] Potassium 3.8 3.5 - 5.1 mmol/L [facility] Chloride 104 98 - 107 mmol/L [facility] CO2 29.5 22 - 30 mmol/L [facility] Glucose 70 70 - 106 mg/dl [facility] BUN 13.9 8 - 21 mg/dl [facility] Calcium 9.1 8.9 - 10.7 mg/dl [facility] Bilirubin Total 0.5(L) 0.6 - 1.4 mg/dl [facility] Protein Total 6.5 6.3 - 8.6 gm/dl [facility] Albumin 4.1 3.7 - 5.6 gm/dl [facility] ALT 30 10 - 40 Units/L [facility] AST 40 10 - 45 Units/L [facility] Alkaline Phosphatase 105 65 - 260 Units/L [facility] Creatinine 0.92 0.50 - 1.06 mg/dl [facility] BLOOD SPECIMEN / Unknown 07/20/2011 9:00 AM CDT 07/20/2011 9:15 AM CDT Philip Chavez MD LAB - CHEMISTRY O RDERABLES Performing Organization Address [facility] de Phone Number [facility] [address] [place] [address] * (ABNORMAL) CBC W AUTO DIFFERENTIAL (07/20/2011 9:00 AM CDT) WBC 6.07 4.5 - 11.0 K/cumm [facility] RBC 4.99 4.50 - 5.30 mill/cumm [facility] Hemoglobin 16.1(H) 13.0 - 16.0 gm/dl [facility] Hematocrit 44.5 37.0 - 49.0 % [facility] MCV 89.2 78.0 - 98.0 cu microns [facility] MCH 32.3 25.0 - 35.0 uug [facility] MCHC 36.2 31.0 - 37.0 % [facility] RDW 13.3 % [facility] MPV 10.0 fl [facility] Platelet Count 209 100 - 400 K/cumm [facility] Granulocytes % 66.5 31 - 78 % [facility] Lymphocytes % 21.7 13 - 54 % [facility] Monocytes % 9.4 4 - 13 % [facility] Eosinophils % 2.1 0 - 8 % [facility] Basophils % 0.3 0 - 1 % [facility] Comment Manual Diff Automated Diff Performed [facility] BLOOD SPECIMEN / Unknown 07/20/2011 9:00 AM CDT 07/20/2011 9:15 AM CDT Philip Chavez MD LAB - HEMATOLOGY ORDERABLES Performing Organization Address [facility] Co de Phone Number [facility] [address] [place] [address] documented in this encounter Visit Diagnoses Diagnosis Hypogammaglobulinemia (HCC) Hypogammaglobulinaemia, unspecified Neutropenia associated with autoimmune disease (HCC) Other neutropenia documented in this encounter Administered Medications Inactive Administered Medications - up to 3 most recent administrations Medication Order MAR Action Action Date Dose Rate Site acetaminophen (TYLENOL) tablet 500 mg 500 mg, Oral, ONCE, 1 dose, On Wed07/20/11 at 0930, Maximum allowable Acetaminophen amount = 4 Grams (4000 mg) / 24 hours. $ Given 07/20/2011 9:10 AM CDT 500 mg diphenhydrAMINE (BENADRYL) tablet 50 mg 50 mg, Oral, ONCE, 1 dose, On Wed07/20/11 at 0930 $ Given 07/20/2011 9:10 AM CDT 50 mg immune globulin (human) (GAMMAGARD;GAMUNEX;PRIVIGEN) 10% infusion 26.5 g 26.5 g (0.5 g/kg ? 53.3 kg), Intravenous, ONCE, 1 dose, On Wed07/20/11 at 0930 $ Given 07/20/2011 10:00 AM CDT 26.5 g Right Arm documented in this encounter Care Teams Roading Engineer Relationship Specialty [place] [address] [place] [address] [address] [place] [address] PCP - General 01/05/11 documented as of this encounter
--- OUTSIDE RECORDS SUMMARY | 2024-10-28 05:57 | XMS_ITS | Encounter Summary ---
Author Organization [facility] Address [address] [place] [place] [address] Care Team Providers Care Hoist Cylinder Loader Name Role Phone Vilma Spangler MD Primary Care Provider Encounter Details Date Type Department Care Team (Latest Contact Info) Description 03/22/2012 8:59 AM CDT - 03/22/2012 9:04 AM CDT Hospital Encounter [facility] Pediatrics - ENT [address] [place] [id number] Silverio Rivas MD [address] [place] [phone] Ear Nose Throat Discharge Disposition: Home or [...] on filedocumented in this encounter Care Teams Hoist Cylinder Loader Relationship Specialty Start Date End Date Vilma Spangler MD [address] [address] PCP - General 01/05/11 documented as of this encounter
--- OUTSIDE RECORDS SUMMARY | 2024-10-28 05:57 | XMS_ITS | Encounter Summary ---
Author Organization [facility] Address [address] [place] [address] Care Team Providers Care Network Operations Project Manager Name Role Phone Vilma Spangler MD Primary Care Provider +[phone] Reason for Visit * Reason Onset Date Comments Scheduling 11/03/2012 Encounter Details Date Type Department Care Team (Late st Contact Info) Description 11/03/2012 Telephone [facility] at [address] [address] Sherry Rebolledo RN Scheduling Social History Tobacco [...] Telephone Encounter - Sherry Rebolledo RN - 11/03/2012 2:47 PM CST Patient's mother called to see if the patient's splenectomy has been scheduled yet. According to Dr. Chavez he has not been notified yet, however when it does get scheduled the patient will need IVIG prior to surgery. Gave these instructions to the patient's mother who stated that the patient does have scheduling issues due to his work. Gave patient's mother surgery's number to work out scheduling. Dr. Chavez instructed that at this time the patient needs a CBC drawn. Mother stated they could either get labs on 11/04 or 11/05. Notified patient's mother we would call them once we receive lab results. LOG LIBRARY ASSISTANT documented in this encounter Plan of Treatment Not on file documented as of this encounter Visit Diagnoses Not on filedocumented in this encounter Care Teams Network Operations Project Manager Relationship Specialty Start Date End Date Vilma Spangler MD [address] [address] PCP - General 01/05/11 documented as of this encounter
--- OUTSIDE RECORDS SUMMARY | 2024-10-28 05:57 | XMS_ITS | Encounter Summary ---
Author Organization [facility] Address [address] [place] [address] Care Team Providers Care Hearing Dog Trainer Name Role Phone Vilma Spangler MD Primary Care Provider [phone]- [phone] Reason for Visit * (Routine) - Closed Specialty Diagnoses / Procedures Referred By Sascha t Referred To Contact Pediatric Hematology and Oncology / Oncology-Medical [facility] Philip Chavez MD [address] [place] [phone] Referral ID Status Reason Start Date Expiration Date Visits Re quested Visits Authorized [id number] Closed 06/28/2012 12/25/2012 1 1 Encounter Details Date Type Department Care Team (Late st Contact Info) Description 06/28/2012 7:12 AM CDT - 06/28/2012 11:59 PM CDT Hospital Encounter [facility] at [address] [address] Philip Chavez MD [address] [place] [phone] Discharge Disposition: Home or Self Care [...] Sign Reading Time Taken Comments Blood Pressure 104/56 06/28/2012 11:20 AM CDT Pulse 64 06/28/2012 11:20 AM CDT Temperature 36.3 ??C (97.4 ??F) 06/28/2012 11:20 AM C DT Respiratory Rate 18 06/28/2012 11:20 AM CDT Oxygen Saturation 100% 06/28/2012 8:30 AM CDT Inhaled Oxygen Concentration - - Weight 55.5 kg (122 lb 5.7 oz) 06/28/2012 8:30 A M CDT Height 169.5 cm (5' 6.73 ) 06/28/2012 8:30 AM CD T Body Mass Index 19.32 06/28/2012 8:30 AM CDT documented in this encounter Discharge Instructions * Patient Instructions* Ileana Castillo RN - 06/28/2012 8:31 AM CDT Discharge Instructions for: Beka Contreras Simone No discharge procedures on file. The following belonging have been returned to you If your child has any worsening of his or her condition, please call your primary care doctor (or their exchange if after hours) or return to the ED if your primary care doctor cannot be reached. 06/28/2012 * Discharge Instructions* Document, Scanned - 06/28/2012 7:38 PM CDT documented in this encounter Medications [...] Progress Notes * Ileana Castillo RN - 06/28/2012 9:12 AM CDT Patient was seen in clinic by Dr. Chavez and scheduled for an IVIG infusion. Patient was accompaniedby his mother to clinic and stayed chairside during visit. A right forearm 22G PIV was placed and labs were obtained per MD order. Patient was given premedications as ordered, of Tylenol and Benadryl. He received an IVIG infusion, and was monitored closely by this RN throughout. Patient tolerated the infusion well. He was flushed per protocol with D5 and his IV was flushed and discontinued. Patient is an adult patient, and signed his home instructions. Patient went home with his mother ambulatory and will be scheduling his next visit. documented in this encounter Miscellaneous Notes * Miscellaneous Scans - Document, Scanned - 07/20/2012 2:48 PM CDT documented in this encounter Plan of Treatment Not on file documented as of this encounter Procedures Procedure Name Priority Date/Time Associated Diagnosis Comments CBC W AUTO DIFFERENTIAL ZAHRA 06/28/2012 8:54 AM CDT Neutropenia associated with autoimmune disease (HCC) COMPREHENSIVE METABOLIC PANEL ZAHRA 06/28/2012 8:54 AM CDT Neutropenia associated with autoimmune disease (HCC) IGG BLOOD ZAHRA 06/28/2012 8:54 AM CDT Neutropenia associated with autoimmune disease (HCC) DIFFERENTIAL MANUAL Routine 06/28/2012 8 :54 AM CDT Neutropenia associated with autoimmune disease (HCC) documented in this encounter Results * IGG BLOOD (06/28/2012 8:54 AM CDT) Pathologist [facility] IgG 685 540 - 1,822 mg/dL 06/28/2012 10:23 AM CDT [facility] Blood specimen (specimen) BLOOD SPECIMEN / Unknown 06/28/2012 8:54 AM CDT 06/28/2012 9:03 AM CDT Philip Chavez MD LAB - CHEMISTRY O RDERABLES [facility] [address] [facility] [place] [address] * (ABNORMAL) COMPREHENSIVE METABOLIC PANEL (06/28/2012 8:54 AM CDT) [facility] Glucose 84 70 - 105 mg/dL 06/28/2012 10:22 AM [facility] Sodium 144 136 - 145 mmol/L 06/28/2012 10:22 AM [facility] Potassium 3.8 3.5 - 5.1 mmol/L 06/28/2012 10:22 AM [facility] Chloride 107 98 - 107 mmol/L 06/28/2012 10:22 AM [facility] CO2 21(L) 22 - 29 mmol/L 06/28/2012 10:22 AM [facility] Calcium 8.79(L) 9.08 - 10.48 mg/dL 06/28/2012 10:22 AM [facility] Anion Gap 16 5 - 20 mmol/L 06/28/2012 10:22 AM [facility] BUN 11.1 5.3 - 18.7 mg/dL 06/28/2012 10:22 AM [facility] Creatinine 0.76 0.61 - 1.07 mg/dL 06/28/2012 10:22 AM [facility] eGFR by MDRD >60 >60 ml/min/1.7 3m2 06/28/2012 10:22 AM [facility] eGFR by MDRD >60 >60 ml/min/1.7 3m2 06/28/2012 10:22 AM [facility] Alkaline Phosphatase 140(H) 39 - 139 U/L 06/28/2012 10:22 AM [facility] ALT 82(H) 6 - 46 U/L 06/28/2012 10:22 AM [facility] AST 49(H) 8 - 42 U/L 06/28/2012 10:22 AM [facility] Protein Total 6.2(L) 6.3 - 8.2 gm/dL 06/28/2012 10:22 AM [facility] Albumin 3.9 3.3 - 4.9 gm/dL 06/28/2012 10:22 AM [facility] Bilirubin Total 0.3 0.3 - 1.2 mg/dL 06/28/2012 10:22 AM [facility] Blood specimen (specimen) BLOOD SPECIMEN / Unknown 06/28/2012 8:54 AM [facility] 06/28/2012 9:03 AM CDT Philip Chavez MD LAB - CHEMISTRY O RDERABLES Performing Organization Address [facility] Co de Phone Number [facility] [address] [place] [address] * (ABNORMAL) CBC W AUTO DIFFERENTIAL (06/28/2012 8:54 AM CDT) [facility] Signature WBC 5.5 4.4 - 10.7 x10^9/L 06/28/2012 10:43 AM CDT [facility] RBC 5.20 3.80 - 5.40 x10^12/L 06/28/2012 10:43 AM T [facility] Hemoglobin 16.6 12.0 - 17.6 g/dL 06/28/2012 10:43 AM T [facility] Hematocrit 45.2 35.2 - 51.7 % 06/28/2012 10:43 AM T [facility] MCV 86.9 80.7 - 98.3 fl 06/28/2012 10:43 AM T [facility] MCH 31.9 26.7 - 34.0 pg 06/28/2012 10:43 AM T [facility] MCHC 36.7(H) 30.8 - 35.9 gm/dL 06/28/2012 10:43 AM [facility] RDW-CV 13.0 12.1 - 14.9 % 06/28/2012 10:43 AM [facility] MPV 10.9 9.4 - 12.9 fl 06/28/2012 10:43 AM T [facility] Hematology Reflex Status Manual Diff to follow 06/28/2012 10:43 AM T [facility] Platelet Count 70(L) 153 - 416 x10^9/L 06/28/2012 10:43 AM T [facility] Blood specimen (specimen) BLOOD SPECIMEN / Unknown 06/28/2012 8:54 AM CDT 06/28/2012 9:04 AM CDT Philip Chavez MD LAB - HEMATOLOGY ORDERABLES Performing Organization Address [facility] Co de Phone Number [facility] [address] [place] [address] * DIFFERENTIAL MANUAL (06/28/2012 8:54 AM CDT) WBC Auto 5.5 X(10)9/L 06/28/2012 10:43 AM T [facility] Neutrophil % Manual 63 44 - 73 % 06/28/2012 10:43 AM T [facility] Lymphocytes % Manual 23 20 - 43 % 06/28/2012 10:43 AM T [facility] Monocytes % Manual 6 5 - 13 % 2011 10:43 AM T [facility] Atypical Lymphocyte % Manual 8 % 06/28/2012 10:43 AM [facility] Cells Counted 100 # cells 06/28/2012 10:43 AM [facility] Platelet Estimation Decreased 06/28/2012 10:43 AM [facility] WBC Morph Normal 06/28/2012 10:43 AM [facility] Anisocytosis Slight 06/28/2012 10:43 AM [facility] Poikilocytosis Slight 06/28/2012 10:43 AM [facility] Blood specimen (specimen) BLOOD SPECIMEN / Unknown 06/28/2012 8:54 AM CDT 06/28/2012 9:04 AM CDT Philip Chavez MD LAB - HEMATOLOGY ORDERABLES Performing Organization Address City/State/[facility] Co de Phone Number [facility] [address] [phone] documented in this encounter Visit Diagnoses Diagnosis Neutropenia associated with autoimmune disease (HCC) Other neutropenia Hypogammaglobulinemia (HCC) Hypogammaglobulinaemia, unspecified documented in this encounter Administered Medications Inactive Administered Medications - up to 3 most recent administrations Medication Order MAR Action Action Date Dose Rate Site acetaminophen (TYLENOL) tablet 650 mg 650 mg, Oral, ONCE, 1 dose, On Wed06/28/12 at 0730, Administer one (1) hour prior to IVIG administration. $ Given 06/28/2012 8:59 AM CDT 650 mg dextrose 5 % infusion at 75 mL/hr, Intravenous, CONTINUOUS, Starting on Wed06/28/12 at 0730, Until Wed06/29/12 at 0121, IVIG maintenance IV Fluid/Flush solution $ New Bag/Syringe 06/28/2012 11:39 AM CDT 75 mL/hr diphenhydrAMINE (BENADRYL) tablet 50 mg 50 mg, Oral, ONCE, 1 dose, On Wed06/28/12 at 0730, Administer one (1) hour prior to IVIG administration. $ Given 06/28/2012 8:59 AM CDT 50 mg immune globulin (human) (PRIVIGEN) 10 % infusion 27.5 g 27.5 g (0.5 g/kg ? 54.7 kg), Intravenous, CONTINUOUS, Starting on Wed06/28/12 at 1200, Until Wed06/28/12 at 1359, Intravenous, CONTINUOUS for 2 hours, [...] half the previous rate. $ New Bag/Syringe 06/28/2012 9:23 AM CDT 27.5 g 33 mL/hr documented in this encounter Care Teams Hearing Dog Trainer Relationship Specialty Start Date End Date Vilma Spangler MD [address] [address] PCP - General 01/05/11 documented as of this encounter
--- OUTSIDE RECORDS SUMMARY | 2024-10-28 05:57 | XMS_ITS | Encounter Summary ---
Author Organization [facility] Address [address] [place] [address] Care Team Providers Care Honing Machine Try Out Setter Name Role Phone Vilma Spangler MD Primary Care Provider Encounter Details Date Type Department Care Team (Latest Contact Info) Description 12/10/2011 7:22 AM SHEET ROCK TAPER HELPER - 12/10/2011 11:59 PM SHEET ROCK TAPER HELPER Hospital Encounter [facility] at [address] [address] Discharge Disposition: Home or Self Care Social [...] Sign Reading Time Taken Comments Blood Pressure 100/60 12/10/2011 11:00 AM SHEET ROCK TAPER HELPER Pulse 76 12/10/2011 9:45 AM SHEET ROCK TAPER HELPER Temperature 36 ??C (96.8 ??F) 12/10/2011 7:59 AM SHEET ROCK TAPER HELPER Respiratory Rate 20 12/10/2011 9:45 AM SHEET ROCK TAPER HELPER Oxygen Saturation 97% 12/10/2011 7:59 AM SHEET ROCK TAPER HELPER Inhaled Oxygen Concentration - - Weight 54.6 kg (120 lb 5.9 oz) 12/10/2011 7:59 A M SHEET ROCK TAPER HELPER Height 169.1 cm (5' 6.58 ) 12/10/2011 7:59 AM CS T Body Mass Index 19.09 12/10/2011 7:59 AM SHEET ROCK TAPER HELPER Body Mass Index Percentile 8.07% 12/10/2011 7:5 9 AM SHEET ROCK TAPER HELPER Growth Chart: CDC (Boys, 2-2 0 Years) documented in this encounter Discharge Instructions * Discharge Instructions* Document, Scanned - 12/11/2011 12:30 PM SHEET ROCK TAPER HELPER T ROCK TAPER HELPER documented in this encounter Medications at Time of Discharge Medication Sig Dispensed Refills Start Date End Date tacrolimus (PROGRAF) 1 MG capsule Take 1 mg by mouth 2 times daily. 03/14/2012 documented as of this encounter Progress Notes * Philip Chavez MD - 12/11/2011 11:22 AM CST Hematology/Oncology Progress Note 12/10/2011 Beka Contreras Niharikaaria PCP: Vilma Spangler MD Diagnosis: Autoimmune Thrombocytopenia/Autoimmune Neutropenia Interval History: Beka is over 2 years out from Rituximab. Feeling much better over the last month since IVIG reinstituted. No fevers. Level of energy at baseline. No bleeding. No rash. No respiratory symptoms. Denies GI disturbance. No Known Allergies Current Outpatient Prescriptions Medication [...] with parents, sibs. Physical Exam Constitutional: BP 100/60 Pulse 76 Temp 96.8 ??F Resp 20 Ht 1.691 m (5' 6.58 ) Wt 54.6 kg (120 lb 5.9 oz) BMI 19.09 kg/m2 SpO2 97% BSA (Calculated): 1.6 General Appearance: No acute [...] hour(s)) CBC W MANUAL DIFFERENTIAL Collection Time 12/10/11 8:10 AM Component Value Range WBC 7.52 4.5 - 11.0 (K/cumm) RBC 4.81 4.50 - 5.30 (mill/cumm) Hgb 15.5 13.0 - 16.0 (gm/dl) Hct 43.1 37.0 - 49.0 (%) MCV 89.6 78.0 - 98.0 (cu microns) MCH 32.2 25.0 - 35.0 (uug) MCHC 36.0 31.0 - 37.0 (%) RDW 13.[address] 244 100 - 400 (K/cumm) Manual Diff Comment Done Band Manual 1 Seg Manual 63 31 - 78 (%) Lymph Manual 15 13 - 54 (%) [place] Manual 8 4 - 13 (%) Eos Manual 5 0 - 8 (%) Atyp Lymph Manual 8 RBC Morph Slight Anisocytosis, Poikylocytosis COMPREHENSIVE METABOLIC PANEL Collection Time 12/10/11 8:10 AM Component Value Range Sodium 144 137 - 145 (mmol/L) Potassium 3.9 3.5 - 5.1 (mmol/L) Chloride 106 98 - 107 (mmol/L) CO2 27.7 22 - 30 (mmol/L) Glucose 76 70 - 106 (mg/dl) BUN 14.7 8 - 21 (mg/dl) Calcium 8.9 8.9 - 10.7 (mg/dl) Bili Total 0.6 0.6 - 1.4 (mg/dl) Protein Total 6.5 6.3 - 8.6 (gm/dl) Albumin 4.1 3.7 - 5.6 (gm/dl) ALT/SGPT 31 10 - 40 (Units/L) AST/SGOT 32 10 - 45 (Units/L) Alk Phos 112 65 - 260 (Units/L) Creatinine 0.85 0.50 - 1.06 (mg/dl) IGG BLOOD Collection Time 12/10/11 8:10 AM Component Value Range IgG 566 (*) 639 - 1349 (mg/dl) JOSE-BAR VIRUS PCR QUANTITATIVE BLOOD Collection Time 12/10/11 8:10 AM Component Value Range EBV DNA Quant PCR [id number] copies of EBV DNA/mL of whole blood. NO EBV DNA detected (Copies/mL) EBV DNA Quant 4.12 log 10 copies/ml EBV PCR Comment Assessment 1. 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 Ultimately treated with Rituximab in late 2008. EBV PCR positive again and now quantifiable. Counts remain normal. 2. Immune suppression: Patient on chronic tacrolimus for liver transplant. 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 IVIG held recently with subsequent reoccurrence of lethargy. IVIG replacement resumed. Currently much better Plan 1. CBC, Liver functions 2. EBV PCR sent and noted to be increased -Previous bumps in EBV load characterized by subsequent fall to low/undetectable levels. No symptoms suggestive of EBV disease -Repeat EBV PCR at next visit. 3. IVIG 500 mg/kg T ROCK TAPER HELPER * Anastasia Fox RN - 12/10/2011 8:42 AM CST Arrived to [facility] with Father for visit and IVIG. Patient triaged and assessed by RN. 22 gauge piv placed x1 attempt to left AC. Labs collected and sent. Patient premedicated with Tylenol and Benadryl. 0830- IVIG started and infused per titration rate recommendations. VSS. Patient examined by Dr. Chavez. 1100- IVIG and flush complete. Piv removed with catheter intact and bandaid applied. Patient to RT in 1 month for visit, labs, and IVIG. Patient discharged to home ambulatory with Father. T ROCK TAPER HELPER documented in this encounter Miscellaneous Notes * Miscellaneous Scans - Document, Scanned - 12/30/2011 1:12 PM CST T ROCK TAPER HELPER documented in this encounter Plan of Treatment Not on file documented as of this encounter Procedures Procedure Name Priority Date/Time Associated Diagnosis Comments ACQUIRED IMMUNE DEFICIENCY PANEL Routine 12/10/2011 8:10 AM SHEET ROCK TAPER HELPER Hypogammaglobuline justine (HCC) JOSE-DE LA CRUZ VIRUS PCR QUANT BLOOD/CSF Routine 12/10/2011 8:10 AM SHEET ROCK TAPER HELPER 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) CBC W MANUAL DIFFERENTIAL Timed 12/10/2011 8:10 AM SHEET ROCK TAPER HELPER 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) COMPREHENSIVE METABOLIC PANEL Timed 12/10/2011 8:10 AM SHEET ROCK TAPER HELPER 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) IGG BLOOD Timed 12/10/2011 8:10 AM SHEET ROCK TAPER HELPER 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) documented in this encounter Results * ACQUIRED IMMUNE DEFICIENCY PANEL (12/10/2011 8:10 AM SHEET ROCK TAPER HELPER) AIDS/ARC Panel See Scanned Report [facility] BLOOD SPECIMEN / Unknown 12/10/2011 8:10 AM SHEET ROCK TAPER HELPER 12/10/2011 8:25 AM SHEET ROCK TAPER HELPER Narrative Resulting Agency Comment Performed By [facility] Flow Cytometry Laboratory ? [facility] Dept of Path. Flow Cytometry ? [address] [facility] Shivani Fernandez MD LAB - HEMATOLOGY ORD ERABLES [facility] [address] [place] [address] * JOSE-BAR VIRUS PCR QUANTITATIVE BLOOD (12/10/2011 8:10 AM SHEET ROCK TAPER HELPER) Jose-De La Cruz Virus DNA PCR Quantitative [id number] copies of EBV DNA/mL of whole blood. NO EBV DNA detected Copies/mL [facility] Jose-De La Cruz Virus DNA Quantitative log copy 4.12 log 10 copies/ml log 10 copies/mL [facility] Comment EBV PCR [facility] Comment: This assay has a [...] ??EBV levels can vary by speimen type: [facility] uses whole blood which is more sensitive [...] determined by the Virology Laboratory of [facility]. ??It has not been cleared [...] Miscellaneous samples (specimen) BLOOD SPECIMEN / Unknown 12/10/2011 8:10 AM SHEET ROCK TAPER HELPER 12/10/2011 8:25 AM SHEET ROCK TAPER HELPER Shivani Fernandez MD LAB - MICROBIOLOGY O RDERABLES Performing Organization Address [facility]/ZIP Co de Phone Number [facility] [address] [place] [address] * (ABNORMAL) IGG BLOOD (12/10/2011 8:10 AM SHEET ROCK TAPER HELPER) IgG 566(L) 639 - 1349 mg/dl [facility] Blood specimen (specimen) BLOOD SPECIMEN / Unknown 12/10/2011 8:10 AM SHEET ROCK TAPER HELPER 12/10/2011 8:25 AM SHEET ROCK TAPER HELPER Shivani Fernandez MD LAB - CHEMISTRY ORDE RABLES Performing Organization Address [facility] de Phone Number [facility] [address] [place] [address] * COMPREHENSIVE METABOLIC PANEL (12/10/2011 8:10 AM SHEET ROCK TAPER HELPER) Sodium 144 137 - 145 mmol/L [facility] Potassium 3.9 3.5 - 5.1 mmol/L [facility] Chloride 106 98 - 107 mmol/L [facility] CO2 27.7 22 - 30 mmol/L [facility] Glucose 76 70 - 106 mg/dl [facility] BUN 14.7 8 - 21 mg/dl [facility] Calcium 8.9 8.9 - 10.7 mg/dl [facility] Bilirubin Total 0.6 0.6 - 1.4 mg/dl [facility] Protein Total 6.5 6.3 - 8.6 gm/dl [facility] Albumin 4.1 3.7 - 5.6 gm/dl [facility] ALT 31 10 - 40 Units/L [facility] AST 32 10 - 45 Units/L [facility] Alkaline Phosphatase 112 65 - 260 Units/L [facility] Creatinine 0.85 0.50 - 1.06 mg/dl [facility] Blood specimen (specimen) BLOOD SPECIMEN / Unknown 12/10/2011 8:10 AM SHEET ROCK TAPER HELPER 12/10/2011 8:25 AM SHEET ROCK TAPER HELPER Shivani Fernandez MD LAB - CHEMISTRY MACIE HERNÁNDEZ Performing Organization Address [facility] Co de Phone Number [facility] [address] [place] [address] * CBC W MANUAL DIFFERENTIAL (12/10/2011 8:10 AM SHEET ROCK TAPER HELPER) WBC 7.52 4.5 - 11.0 K/cumm [facility] RBC 4.81 4.50 - 5.30 mill/cumm [facility] Hemoglobin 15.5 13.0 - 16.0 gm/dl [facility] Hematocrit 43.1 37.0 - 49.0 % [facility] MCV 89.6 78.0 - 98.0 cu microns [facility] MCH 32.2 25.0 - 35.0 uug [facility] MCHC 36.0 31.0 - 37.0 % [facility] RDW 13.3 % [facility] MPV 10.3 fl [facility] Platelet Count 244 100 - 400 K/cumm [facility] Comment Manual Diff Done [facility] Band % Manual 1 % [facility] Neutrophils % Manual 63 31 - 78 % [facility] Lymphocytes % Manual 15 13 - 54 % [facility] Monocytes % Manual 8 4 - 13 % [facility] Eosinophils % Manual 5 0 - 8 % [facility] Atypical Lymphocyte % Manual 8 % [facility] RBC Morphology Slight Anisocytosis, Poikylocytosis [facility] BLOOD SPECIMEN / Unknown 12/10/2011 8:10 AM SHEET ROCK TAPER HELPER 12/10/2011 8:25 AM SHEET ROCK TAPER HELPER Shivani Fernandez MD LAB - HEMATOLOGY ORD ERAVERN Performing Organization Address [facility] Co de Phone Number [facility] [address] [place] [address] documented in this encounter Visit Diagnoses Diagnosis Hypogammaglobulinemia (HCC) Hypogammaglobulinaemia, unspecified Neutropenia associated with autoimmune disease (HCC) Other neutropenia documented in this encounter Administered Medications Inactive Administered Medications - up to 3 most recent administrations Medication Order MAR Action Action Date Dose Rate Site acetaminophen (TYLENOL) tablet 500 mg 500 mg, Oral, ONCE, 1 dose, On Brenda 12/10/11 at 0730, Maximum allowable Acetaminophen amount = 4 Grams (4000 mg) / 24 hours. $ Given 12/10/2011 8:08 AM SHEET ROCK TAPER HELPER 500 mg diphenhydrAMINE (BENADRYL) tablet 50 mg 50 mg, Oral, ONCE, 1 dose, On Brenda 12/10/11 at 0730, IVIG premed $ Given 12/10/2011 8:08 AM SHEET ROCK TAPER HELPER 50 mg immune globulin (human) (PRIVIGEN) 10 % infusion 25 g 25 g, Intravenous, ONCE, 1 dose, On Brenda 12/10/11 at 0730, Premed w/ Tylenol and Benadryl $ Given 12/10/2011 8:30 AM SHEET ROCK TAPER HELPER 25 g documented in this encounter Care Teams Honing Machine Try Out Setter Relationship Specialty [place] [address] [place] [id number] PCP - General 01/05/11 documented as of this encounter
--- OUTSIDE RECORDS SUMMARY | 2024-10-28 05:57 | XMS_ITS | Encounter Summary ---
Author Organization [facility] Address [address] [facility] [place] [address] Care Team Providers Care Pot Washer Name Role Phone Vilma Spangler MD Primary Care Provider [phone] Reason for Visit * Reason Onset Date Comments Scheduling 03/15/2012 Encounter Details Date Type Department Care Team (Late st Contact Info) Description 03/15/2012 Telephone [facility] at [address] [address] Anastasia Fox RN Scheduling Social History Tobacco Use Types [...] Telephone Encounter - Anastasia Fox RN - 03/15/2012 1:54 PM CDT Mother notified of scheduled CT scan of neck for 03/18/12 at 0800. Patient instructed to arrive to clinic at 0700 for IV access and PPD to be read at that time. Mother verbalized understanding. Patient placed on [facility] schedule. documented in this encounter Plan of Treatment Not on file documented as of this encounter Visit Diagnoses Not on filedocumented in this encounter Care Teams Pot Washer Relationship Specialty Start Date End Date Vilma Spangler MD [address] [address] PCP - General 01/05/11 documented as of this encounter
--- OUTSIDE RECORDS SUMMARY | 2024-10-28 05:57 | XMS_ITS | Encounter Summary ---
Author Organization [facility] Address [address] [place] [address] Care Team Providers Care Fitter And Turner Name Role Phone Vilma Spangler MD Primary Care Provider [phone] Reason for Visit * (Routine) - Closed Specialty Diagnoses / Procedures Referred By Sascha t Referred To Contact Pediatric Hematology and Oncology / Oncology-Medical CG Philip Tellez MD [address] [place] [phone] Referral ID Status Reason Start Date Expiration Date Visits Re quested Visits Authorized [id number] Closed 08/09/2012 02/05/2013 10 10 Encounter Details Date Type Department Care Team (Latest Contact Info) Description 09/20/2012 7:12 AM ENVIRONMENTAL LAW PROFESSOR - 09/20/2012 11:59 PM ENVIRONMENTAL LAW PROFESSOR Hospital Encounter [facility] at [address] [address] Cindi Malloy MD [address] [place] [phone] Discharge Disposition: Home or Self Care [...] Sign Reading Time Taken Comments Blood Pressure 92/54 09/20/2012 2:30 PM ENVIRONMENTAL LAW PROFESSOR Pulse 60 09/20/2012 2:30 PM ENVIRONMENTAL LAW PROFESSOR Temperature 36.7 ??C (98 ??F) 09/20/2012 1:35 PM ENVIRONMENTAL LAW PROFESSOR Respiratory Rate 16 09/20/2012 2:30 PM ENVIRONMENTAL LAW PROFESSOR Oxygen Saturation 98% 09/20/2012 7:46 AM ENVIRONMENTAL LAW PROFESSOR Inhaled Oxygen Concentration - - Weight 54 kg (119 lb 0.8 oz) 09/20/2012 7:46 AM ENVIRONMENTAL LAW PROFESSOR Height 170 cm (5' 6.93 ) 09/20/2012 7:46 AM ENVIRONMENTAL LAW PROFESSOR Body Mass Index 18.69 09/20/2012 7:46 AM ENVIRONMENTAL LAW PROFESSOR documented in this encounter Discharge Instructions * Patient Instructions* Papo Fuentes RN - 09/20/2012 2:25 PM ENVIRONMENTAL LAW PROFESSOR RONMENTAL LAW PROFESSOR * Discharge Instructions* Document, Scanned - 09/20/2012 9:50 PM ENVIRONMENTAL LAW PROFESSOR RONMENTAL LAW PROFESSOR documented in this encounter Medications at Time [...] Progress Notes * Ileana Castillo RN - 09/20/2012 3:12 PM CST Patient came to clinic accompanied by his mother for scheduled visit with Dr. Malloy, labs and IVIGinfusion. PIV started in patient's left AC by this RN. Labs obtained via specimen. Flushes well andpositive blood return. IVF bolus started on pt by Elizabeth Mcgrath RN as ordered. CBC resulted with platelets of 3. MD notified and ordered double dose of IVIG. First IVIG dose ran per protocol with scheduled titrations and vital signs. Vital signs stable. Patient tolerated infusion well. MD stated to continue second IVIG dose at the rate that the first infusion ended. Vitals stable. Patient will return next week for labs. Mother and patient confirmed their understanding. Patient's PIV removed by Elizabeth Mcgrath RN and discharged ambulatory. RONMENTAL LAW PROFESSOR * Cindi Malloy MD - 09/20/2012 9:05 AM CST Hematology/Oncology Progress Note 09/20/2012 Beka Nichols PCP: Vilma Spangler Diagnosis: Autoimmune [...] ??? dextrose 5 % infusion Intravenous Continuous Cindi Malloy MD ??? immune globulin (human) (PRIVIGEN) 10 % infusion 25 g 25 g Intravenous Continuous Cindi Malloy MD ??? diphenhydrAMINE (BENADRYL) tablet 50 mg 50 mg Oral Once Cindi Malloy MD 50 mg at 09/20/12 0805 ??? acetaminophen (TYLENOL) tablet 500 mg 500 mg Oral Once Cindi Malloy MD 500 mg at 09/20/12 0805 Interval History: Beka is here today for scheduled IVIG infusion. Beka reports that he had diarrhea over last weekend - starting Sat night(09/17/12). Had multiple loose stools Sat night, some Sun. No stools since yesterday. Had emesis Sun (09/18) but none since then. No fevers. Denies resp sx. Has ~1.5 cm lesion left hand that he says is an injury(?burn) sustained while at work. No new LAD No petechiae/oral mucosal bleeding noted. Past Medical History: Unchanged 17yo male with a history of cadaveric liver transplant at 4yo, who developed autoimmune neutropenia/thrombocytopenia 3 years ago. The autoimmune process was felt to be secondary to chronic immune suppression coupled with reactivation of EBV. He ultimately responded to Rituximab with clearance of EBV and normalization of counts. 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 04/15: He developed lymphadenopathy most notable in the left neck. PET/CT revealed diffuse adenopathy in the chest and abdomen as well as bilateral cervical areas. No classic B symptoms. No clear resolution with antibiotics. 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 Healing well. Nodes seem to be getting smaller. Family Medical History: unchanged Social History: Living at home with parents, sibs. Working at [employer] in the [employer] dept. Review of Systems: See Interval History. Remainder of ROS neg. Physical Exam Constitutional: BP 86/58 Pulse 60 Temp 96.8 ??F Resp 16 Ht 1.7 m (5' 6.93 ) Wt 54 kg (119 lb 0.8 oz) BMI 18.69 kg/m2 SpO2 98% BSA (Calculated): 1.6 General Appearance: No acute distress. Pleasant, ccoperative with exam Head: No nasal congestion or discharge. Skin: no rashes, or petechiae. ~1.5 cm bruise left hand with supf desquamation Eyes: anicteric: pupils equal, round, reactive to light; intact extra-ocular movements Mouth/throat: no sores, erythema, exudates, or mucosal pallor. Lymph nodes: small palpable cervical nodes. Well-healed surgical incision over L lower neck from biopsy. Chest: lungs clear to auscultation Heart: normal S1 and S2, no murmur Abdomen: soft, non-tender, no masses Genitalia: deferred Extremities: no focal swelling or tenderness; full ROM. Neuro: grossly intact Lab and/or Imaging Studies Recent Results (from the past 336 hour(s)) IMMUNOGLOBULINS PANEL Collection Time 09/20/12 8:00 AM Component Value Range IgA 16 (*) 63-484 mg/dL IgG 656 436-8265 mg/dL IgM 95 22-240 mg/dL MAGNESIUM BLOOD Collection Time 09/20/12 8:00 AM Component Value Range Magnesium mg/dL 1.9 1.7-2.3 mg/dL PHOSPHORUS BLOOD Collection Time 09/20/12 8:00 AM Component Value Range Phosphorus 3.18 2.76-5.14 mg/dL JOSE-BAR VIRUS PCR QUANTITATIVE BLOOD Collection Time 09/20/12 8:00 AM Component Value Range EBV DNA Quant PCR (*) No EBV DNA detected Value: POSITIVE for EBV DNA but below level of accurate quantitation LDH BLOOD Collection Time 09/20/12 8:00 AM Component Value Range LDH 231 140-260 U/L CBC W AUTO DIFFERENTIAL Collection Time 09/20/12 8:00 AM Component Value Range WBC 5.5 4.4-10.7 x10^9/L RBC 5.31 3.80-5.40 x10^12/L Hgb 16.8 12.0-17.6 g/dL HCT 46.0 35.2-51.7 % MCV 86.6 80.7-98.3 fl MCH 31.6 26.7-34.0 pg MCHC 36.5 (*) 30.8-35.9 gm/dL RDW-CV 12.7 12.1-14.9 % Neutro 58 44-73 % Lymph 25 20-43 % Morehouse 13 5-13 % Eos 2 0-6 % Baso 0 0-2 % Immature Grans 0 0-1 % Neutro Abs 3.18 2.01-7.14 x10^9/L Lymph Abs 1.41 1.07-3.94 x10^9/L Morehouse Abs 0.73 0.26-1.07 x10^9/L Eosin Abs 0.12 0-0.47 x10^9/L Baso Abs 0.01 0-0.08 x10^9/L Immature Grans Abs 0.01 0.00-0.06 x10^9/L Hemo Reflex Status Manual Diff to follow Plt Ct 3 (*) 153-416 x10^9/L COMPREHENSIVE METABOLIC PANEL Collection Time 09/20/12 8:00 AM Component Value Range Glucose 90 70-105 mg/dL Sodium 142 136-145 mmol/L Potassium 4.1 3.5-5.1 mmol/L Chloride 109 (*) 98-107 mmol/L CO2 23 22-29 mmol/L Calcium 8.92 (*) 9.08-10.48 mg/dL Anion Gap 10 5-20 mmol/L BUN 9.7 5.3-18.7 mg/dL Creatinine 0.87 0.61-1.07 mg/dL eGFR by MDRD >60 >60 ml/min/1.73m2 eGFR by MDRD AFR AMER >60 >60 ml/min/1.73m2 Alk Phos 127 39-139 U/L ALT/SGPT 42 6-46 U/L AST/SGOT 31 8-42 U/L Protein Total 6.6 6.3-8.2 gm/dL Albumin 4.3 3.3-4.9 gm/dL Bili Total 0.8 0.3-1.2 mg/dL DIFFERENTIAL MANUAL Collection Time 09/20/12 8:00 AM Component Value Range WBC Auto 5.5 Neutro Manual 64 44-73 % Lymph Manual 16 (*) 20-43 % Morehouse Manual 15 (*) 5-13 % Eos Manual 1 0-6 % Atyp Lymph Manual 4 Cells Counted 100 Plt Est Markedly decreased WBC Morph Normal Anisocytosis Slight Procedures: IVIG ~ 1 gm/kg - premedicated w/ Tylenol and Benadryl Assessment 17 yr old young man with h/o cadaveric liver transplant at age 4 yrs with h/o immune mediated cytopenias ( thrombocytopenia,neutropenia) while on tacrolimus. Cytopenias noted concurrent with EBV reactivation. Treated with Rituxan in late 2008. Now has acute onset thrombocytopenia again - 09/20/12. 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 EBV PCR remains positive and quantifiable but not increased. Has acquired hypogammaglobulinemia following Rituxan Plan - IVIG given at 1 gm/kg for immune mediated thrombocytopenia - to return next week for labs - to call earlier for signs of mucosal bleeding Follow-up: As above RONMENTAL LAW PROFESSOR documented in this encounter Miscellaneous Notes * Miscellaneous Scans - Document, Scanned - 11/06/2012 3:00 PM CST RONMENTAL LAW PROFESSOR documented in this encounter Plan of Treatment Not on file documented as of this encounter Procedures Procedure Name Priority Date/Time Associated Diagnosis Comments JOSE-DE LA CRUZ VIRUS PCR QUANT BLOOD/CSF Routine 09/20/2012 8:00 AM ENVIRONMENTAL LAW PROFESSOR Autoimmune hepatitis (HCC) DIFFERENTIAL MANUAL Routine 09/20/2012 8 :00 AM ENVIRONMENTAL LAW PROFESSOR Autoimmune hepatitis (HCC) CBC W AUTO DIFFERENTIAL STAT 09/20/20 12 8:00 AM ENVIRONMENTAL LAW PROFESSOR Autoimmune hepatitis (HCC) COMPREHENSIVE METABOLIC PANEL STAT 09/20/2012 8:00 AM ENVIRONMENTAL LAW PROFESSOR Autoimmune hepatitis (HCC) PHOSPHORUS BLOOD ZAHRA 09/20/2012 8:00 AM ENVIRONMENTAL LAW PROFESSOR Autoimmune hepatitis (HCC) MAGNESIUM BLOOD ZAHRA 09/20/2012 8:00 AM ENVIRONMENTAL LAW PROFESSOR Autoimmune hepatitis (HCC) LDH BLOOD ZAHRA 09/20/2012 8:00 AM ENVIRONMENTAL LAW PROFESSOR Autoimmune hepatitis (HCC) IMMUNOGLOBULINS IGG/IGM/IGA PANEL ZAHRA 09/20/2012 8:00 AM ENVIRONMENTAL LAW PROFESSOR Autoimmune hepatitis (HCC) documented in this encounter Results * (ABNORMAL) DIFFERENTIAL MANUAL (09/20/2012 8:00 AM [facility]) WBC Auto 5.5 X(10)9/L 09/20/2012 9:16 AM [facility] Neutrophil % Manual 64 44 - 73 % 09/20/2012 9:16 AM [facility] Lymphocytes % Manual 16(L) 20 - 43 % 09/20/2012 9:16 AM [facility] Monocytes % Manual 15(H) 5 - 13 % 09/20/2012 9:16 AM [facility] Eosinophils % Manual 1 0 - 6 % 09/20/2012 9:16 AM [facility] Atypical Lymphocyte % Manual 4 % 09/20/2012 9:16 AM [facility] Cells Counted 100 # cells 09/20/2012 9:16 AM [facility] Platelet Estimation Markedly decreased 09/20/2012 9:16 AM [facility] WBC Morph Normal 09/20/2012 9:16 AM [facility] Anisocytosis Slight 09/20/2012 9:16 AM [facility] Blood specimen (specimen) BLOOD SPECIMEN / Unknown 09/20/2012 8:00 AM ENVIRONMENTAL LAW PROFESSOR 09/20/2012 8:29 AM ENVIRONMENTAL LAW PROFESSOR Cindi Malloy MD LAB - HEMATOLOGY ORD ERABLES [facility] [address] [place] [address] * (ABNORMAL) COMPREHENSIVE METABOLIC PANEL (09/20/2012 8:00 AM [facility]) [facility] Glucose 90 70 - 105 mg/dL 09/20/2012 9:02 AM [facility] Sodium 142 136 - 145 mmol/L 09/20/2012 9:02 AM [facility] Potassium 4.1 3.5 - 5.1 mmol/L 09/20/2012 9:02 AM [facility] Chloride 109(H) 98 - 107 mmol/L 09/20/2012 9:02 AM [facility] CO2 23 22 - 29 mmol/L 09/20/2012 9:02 AM [facility] Calcium 8.92(L) 9.08 - 10.48 mg/dL 09/20/2012 9:02 AM [facility] Anion Gap 10 5 - 20 mmol/L 09/20/2012 9:02 AM [facility] BUN 9.7 5.3 - 18.7 mg/dL 09/20/2012 9:02 AM [facility] Creatinine 0.87 0.61 - 1.07 mg/dL 09/20/2012 9:02 AM [facility] eGFR by MDRD >60 >60 ml/min/1.7 3m2 09/20/2012 9:02 AM [facility] eGFR by MDRD >60 >60 ml/min/1.7 3m2 09/20/2012 9:02 AM [facility] Alkaline Phosphatase 127 39 - 139 U/L 09/20/2012 9:02 AM [facility] ALT 42 6 - 46 U/L 09/20/2012 9:02 AM [facility] AST 31 8 - 42 U/L 09/20/2012 9:02 AM [facility] Protein Total 6.6 6.3 - 8.2 gm/dL 09/20/2012 9:02 AM [facility] Albumin 4.3 3.3 - 4.9 gm/dL 09/20/2012 9:02 AM [facility] Bilirubin Total 0.8 0.3 - 1.2 mg/dL 09/20/2012 9:02 AM [facility] Blood specimen (specimen) BLOOD SPECIMEN / Unknown 09/20/2012 8:00 AM ENVIRONMENTAL LAW PROFESSOR 09/20/2012 8:30 AM [facility] Cindi Malloy MD LAB - CHEMISTRY ORDKleber HERNÁNDEZ [facility] [address] [place] [address] * (ABNORMAL) CBC W AUTO DIFFERENTIAL (09/20/2012 8:00 AM [facility]) WBC 5.5 4.4 - 10.7 x10^9/L 09/20/2012 9:12 AM [facility] RBC 5.31 3.80 - 5.40 x10^12/L 09/20/2012 9:12 AM [facility] Hemoglobin 16.8 12.0 - 17.6 g/dL 09/20/2012 9:12 AM [facility] Hematocrit 46.0 35.2 - 51.7 % 09/20/2012 9:12 AM [facility] MCV 86.6 80.7 - 98.3 fl 09/20/2012 9:12 AM [facility] MCH 31.6 26.7 - 34.0 pg 09/20/2012 9:12 AM [facility] MCHC 36.5(H) 30.8 - 35.9 gm/dL 09/20/2012 9:12 AM [facility] RDW-CV 12.7 12.1 - 14.9 % 09/20/2012 9:12 AM [facility] Neutrophils % 58 44 - 73 % 09/20/2012 9:12 AM [facility] Lymphocytes % 25 20 - 43 % 09/20/2012 9:12 AM [facility] Monocytes % 13 5 - 13 % 09/20/2012 9:12 AM [facility] Eosinophils % 2 0 - 6 % 09/20/2012 9:12 AM [facility] Basophils % 0 0 - 2 % 09/20/2012 9:12 AM [facility] Immature Granulocytes 0 0 - 1 % 09/20/2012 9:12 AM [facility] Neutrophil Absolute 3.18 2.01 - 7.14 x10^9/L 09/20/2012 9:12 AM [facility] Lymphocytes Absolute 1.41 1.07 - 3.94 x10^9/L 09/20/2012 9:12 AM [facility] Monocytes Absolute 0.73 0.26 - 1.07 x10^9/L 09/20/2012 9:12 AM [facility] Eosinophils Absolute 0.12 0 - 0.47 x10^9/L 09/20/2012 9:12 AM [facility] Basophils Absolute 0.01 0 - 0.08 x10^9/L 09/20/2012 9:12 AM [facility] Immature Granulocytes Absolute 0.01 0.00 - 0.06 x10^9/L 09/20/2012 9:12 AM [facility] Hematology Reflex Status Manual Diff to follow 09/20/2012 9:12 AM [facility] Platelet Count 3(LL) 153 - 416 x10^9/L 09/20/2012 9:12 AM [facility] Blood specimen (specimen) BLOOD SPECIMEN / Unknown 09/20/2012 8:00 AM [facility] 09/20/2012 8:29 AM ENVIRONMENTAL LAW PROFESSOR Cindi Malloy MD LAB - HEMATOLOGY ORD ERABLES Performing Organization Address City/[facility]/ZIP Co de Phone Number [facility] [address] [place] [address] * LDH BLOOD (09/20/2012 8:00 AM [facility]) Pathologist [facility] LDH 231 140 - 260 U/L 09/20/2012 10:06 AM [facility] Blood specimen (specimen) BLOOD SPECIMEN / Unknown 09/20/2012 8:00 AM [facility] 09/20/2012 8:30 AM ENVIRONMENTAL LAW PROFESSOR Cindi Malloy MD LAB - CHEMISTRY ORDE RABLES Performing Organization Address [facility] Co de Phone Number [facility] [address] [place] [phone] * (ABNORMAL) JOSE-BAR VIRUS PCR QUANTITATIVE BLOOD (09/20/2012 8:00 AM ENVIRONMENTAL LAW PROFESSOR) Pathologist [facility] Jose-De La Cruz Virus DNA PCR Quantitative POSITIVE for EBV DNA but below level of accurate quantitatio n(A) No EBV DNA detected 09/20/2012 2:53 PM [facility] Blood specimen (specimen) BLOOD SPECIMEN / Unknown 09/20/2012 8:00 AM [facility] 09/20/2012 8:31 AM ENVIRONMENTAL LAW PROFESSOR Narrative [facility] - 09/20/2012 2:53 PM ENVIRONMENTAL LAW PROFESSOR This assay has a lower limit of [...] ??EBV levels can vary by ??specimen type: [facility] uses whole blood which is more [...] specimen. Cindi Malloy MD LAB - MICROBIOLOGY Amandeep SMITH Performing Organization Address [facility] Co de Phone Number [facility] [place] [address] * PHOSPHORUS BLOOD (09/20/2012 8:00 AM ENVIRONMENTAL LAW PROFESSOR) Phosphorus 3.18 2.76 - 5.14 mg/dL 09/20/2012 10:06 AM ENVIRONMENTAL LAW PROFESSOR [facility] Blood specimen (specimen) BLOOD SPECIMEN / Unknown 09/20/2012 8:00 AM ENVIRONMENTAL LAW PROFESSOR 09/20/2012 8:30 AM ENVIRONMENTAL LAW PROFESSOR Cindi Malloy MD LAB - CHEMISTRY MACIE HERNÁNDEZ Performing Organization Address [facility]/ZIP Co de Phone Number [facility] [address] [place] [address] * MAGNESIUM BLOOD (09/20/2012 8:00 AM ENVIRONMENTAL LAW PROFESSOR) Magnesium 1.9 1.7 - 2.3 mg/dL 09/20/2012 10:06 AM [facility] Blood specimen (specimen) BLOOD SPECIMEN / Unknown 09/20/2012 8:00 AM ENVIRONMENTAL LAW PROFESSOR 09/20/2012 8:30 AM ENVIRONMENTAL LAW PROFESSOR Cindi Malloy MD LAB - CHEMISTRY ORDKleber HERNÁNDEZ Performing Organization Address [facility] Co de Phone Number [facility] [address] [place] [address] * (ABNORMAL) IMMUNOGLOBULINS PANEL (09/20/2012 8:00 AM ENVIRONMENTAL LAW PROFESSOR) IgA 16(L) 63 - 484 mg/dL 09/20/2012 10:06 AM [facility] IgG 746 540 - 1,822 mg/dL 09/20/2012 10:06 AM [facility] IgM 95 22 - 240 mg/dL 09/20/2012 10:06 AM [facility] Blood specimen (specimen) BLOOD SPECIMEN / Unknown 09/20/2012 8:00 AM ENVIRONMENTAL LAW PROFESSOR 09/20/2012 8:30 AM ENVIRONMENTAL LAW PROFESSOR Cindi Malloy MD LAB - CHEMISTRY ORDKleber HERNÁNDEZ Performing Organization Address [facility] Co de Phone Number [facility] [address] [place] [phone] documented in this encounter Visit Diagnoses Diagnosis Autoimmune hepatitis (HCC) Autoimmune hepatitis Hypogammaglobulinemia (HCC) Hypogammaglobulinaemia, unspecified History of liver transplant (HCC) Liver replaced by transplant documented in this encounter Administered Medications Inactive Administered Medications - up to 3 most recent administrations Medication Order MAR Action Action Date Dose Rate Site 0.9 % nacl IV BOLUS 1,000 mL 1,000 mL, at 1,000 mL/hr, Administer over 60 Minutes, Intravenous, ONCE, 1 dose, On Wed09/20/12 at 0930 $ Given 09/20/2012 9:12 AM ENVIRONMENTAL LAW PROFESSOR 1,000 mL 1000 mL/hr acetaminophen (TYLENOL) tablet 500 mg 500 mg, Oral, ONCE, 1 dose, On Wed09/20/12 at 0730, Administer one (1) hour prior to IVIG administration. $ Given 09/20/2012 8:05 AM ENVIRONMENTAL LAW PROFESSOR 500 mg diphenhydrAMINE (BENADRYL) tablet 50 mg 50 mg, Oral, ONCE, 1 dose, On Wed09/20/12 at 0730, Administer one (1) hour prior to IVIG administration. $ Given 09/20/2012 8:05 AM ENVIRONMENTAL LAW PROFESSOR 50 mg immune globulin (human) (PRIVIGEN) 10 % infusion 25 g 25 g, Intravenous, CONTINUOUS, Starting on Wed09/20/12 at 1100, Until Wed09/20/12 at 1259, Intravenous, CONTINUOUS for 2 hours, [...] half the previous rate. $ New Bag/Syringe 09/20/2012 10:30 AM ENVIRONMENTAL LAW PROFESSOR 25 g 33 mL/hr immune globulin (human) (PRIVIGEN) 10 % infusion 25 g 25 g, Intravenous, CONTINUOUS, Starting on Wed09/20/12 at 1400, Until Wed09/20/12 at 1559, Intravenous, CONTINUOUS for 2 hours, Initiate infusion [...] half the previous rate. $ New Bag/Syringe 09/20/2012 12:30 PM ENVIRONMENTAL LAW PROFESSOR 25 g mL/hr documented in this encounter Care Teams Fitter And Turner Relationship Specialty [place] [address] [place] [address] [place] [phone] PCP - General 01/05/11 documented as of this encounter
--- OUTSIDE RECORDS SUMMARY | 2024-10-28 05:57 | XMS_ITS | Encounter Summary ---
Author Organization [facility] Address [address] [place] [address] Care Team Providers Care Laboratory Geneticist Name Role Phone Vilma Spangler MD Primary Care Provider Encounter Details Date Type Department Care Team (Latest Contact Info) Description 10/13/2011 7:52 AM TOPLINE BEADING MACHINE TENDER - 10/13/2011 11:59 PM TOPLINE BEADING MACHINE TENDER Hospital Encounter [facility] at [address] [phone] Discharge Disposition: Home or Self Care Social [...] Sign Reading Time Taken Comments Blood Pressure 90/50 10/13/2011 7:00 AM TOPLINE BEADING MACHINE TENDER Pulse 68 10/13/2011 7:00 AM TOPLINE BEADING MACHINE TENDER Temperature 36 ??C (96.8 ??F) 10/13/2011 7:00 AM TOPLINE BEADING MACHINE TENDER Respiratory Rate 20 10/13/2011 7:00 AM TOPLINE BEADING MACHINE TENDER Oxygen Saturation 98% 10/13/2011 7:00 AM TOPLINE BEADING MACHINE TENDER Inhaled Oxygen Concentration - - Weight 53.7 kg (118 lb 6.2 oz) 10/13/2011 7:00 A M TOPLINE BEADING MACHINE TENDER Height 169.2 cm (5' 6.61 ) 10/13/2011 7:00 AM CS T Body Mass Index 18.76 10/13/2011 7:00 AM TOPLINE BEADING MACHINE TENDER Body Mass Index Percentile 6.20% 10/13/2011 7:0 0 AM TOPLINE BEADING MACHINE TENDER Growth Chart: CDC (Boys, 2-2 0 Years) documented in this encounter Discharge Instructions * Patient Instructions* Sherry Rebolledo RN - 10/13/2011 9:27 AM TOPLINE BEADING MACHINE TENDER Please bring your medications with you to each visit. INE BEADING MACHINE TENDER * Discharge Instructions* Document, Scanned - 10/13/2011 8:24 PM TOPLINE BEADING MACHINE TENDER INE BEADING MACHINE TENDER documented in this encounter Medications at Time of Discharge Medication Sig Dispensed Refills Start Date End Date cefDINIR (OMNICEF) 300 MG capsule Take 300 mg by mouth 2 times daily. For 10 days. 12/10/2011 tacrolimus (PROGRAF) 1 MG capsule Take 1 mg by mouth 2 times daily. 03/14/2012 documented as of this encounter Progress Notes * Anastasia Fox RN - 10/13/2011 3:39 PM CST Patient arrived to clinic accompanied by Father. Patient triaged and assessed by RN. 24 gauge piv placed x1 attempt to right AC. Labs collected and sent. IgG level= 522. Patient examined by Dr. Chavez. No IVIG given today. Patient to RTC in 1 month for labs and visit. Piv removed with catheter intact by Charles Rebolledo RN. Patient discharged to home with Father and left ambulatory. INE BEADING MACHINE TENDER * Philip Chavez MD - 10/13/2011 8:57 AM CST Hematology/Oncology Progress Note 10/13/2011 Beka Nichols PCP: Vilma Spangler MD Diagnosis: Autoimmune Thrombocytopenia/Autoimmune Neutropenia Interval History: Beka is near 2 years out from Rituximab. Doing well. EBV PCR intermittently positive. Feeling well. No URI symptoms. Level of energy excellent. Beka has had two nose bleeds in the last month which took about 10 minutes to stop bleeding. No Known Allergies Current Outpatient Prescriptions Medication Sig Dispense Refill ??? cefDINIR (OMNICEF) 300 MG capsule Take 300 mg by mouth 2 times daily. For 10 days. ??? tacrolimus (PROGRAF) 1 MG capsule Take 1 mg by mouth 2 times daily. Review of Systems: 1) General Fever: no Wt/appetite change: no Other:no 2) Hem Bruising: no Other:no 3) Skin [...] Other: no 7) Frequency: no Dysuria: no Hematuria: [...] with parents, sibs. Physical Exam Constitutional: BP 90/50 Pulse 68 Temp 96.8 ??F Resp 20 Ht 1.692 m (5' 6.61 ) Wt 53.7 kg (118 lb 6.2 oz) BMI 18.76 kg/m2 SpO2 98% BSA (Calculated): 1.59 General Appearance: No acute distress Head: No nasal congestion or discharge. No ulceration in nose Skin: no rashes, bruises, or petechiae Eyes: [...] hour(s)) CBC W MANUAL DIFFERENTIAL Collection Time 10/13/11 8:05 AM Component Value Range WBC 6.66 4.5 - 11.0 (K/cumm) RBC 4.97 4.50 - 5.30 (mill/cumm) Hgb 16.2 (*) 13.0 - 16.0 (gm/dl) Hct 44.2 37.0 - 49.0 (%) MCV 88.9 78.0 - 98.0 (cu microns) MCH 32.6 25.0 - 35.0 (uug) MCHC 36.7 31.0 - 37.0 (%) RDW 12.[address] K/CUMM 201 100 - 400 (K/cumm) Manual Diff Comment Done Seg Manual 58 31 - 78 (%) Lymph Manual 20 13 - 54 (%) Dane Manual 11 4 - 13 (%) Eos Manual 3 0 - 8 (%) Baso Manual 1 0 - 1 (%) Atyp Lymph Manual 7 RBC Morph Slight Anisocytosis, Poikylocytosis IGG BLOOD Collection Time 10/13/11 8:05 AM Component Value Range IgG 522 (*) 639 - 1349 (mg/dl) COMPREHENSIVE METABOLIC PANEL Collection Time 10/13/11 8:05 AM Component Value Range Sodium 142 137 - 145 (mmol/L) Potassium 3.8 3.5 - 5.1 (mmol/L) Chloride 107 98 - 107 (mmol/L) CO2 25.3 22 - 30 (mmol/L) Glucose 96 70 - 106 (mg/dl) BUN 16.3 8 - 21 (mg/dl) Calcium 9.2 8.9 - 10.7 (mg/dl) Bili Total 0.4 (*) 0.6 - 1.4 (mg/dl) Protein Total 6.4 6.3 - 8.6 (gm/dl) Albumin 3.9 3.7 - 5.6 (gm/dl) ALT/SGPT 32 10 - 40 (Units/L) AST/SGOT 32 10 - 45 (Units/L) Alk Phos 105 65 - 260 (Units/L) Creatinine 0.81 0.50 - 1.06 (mg/dl) Assessment 1. 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 Ultimately treated with Rituximab in late 2008. EBV PCR . Counts normal. Patient asymptomatic 2. Immune suppression: Patient on chronic tacrolimus for liver transplant. 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 IVIG on hold. IgG level low today but patient asymptomatic. Plan 1. CBC 2. EBV PCR sent 3. Hold on IVIG unless patient begins displaying symptoms 4. T and B cell subsets at next visit in 1 month INE BEADING MACHINE TENDER documented in this encounter Miscellaneous Notes * Miscellaneous Scans - Document, Scanned - 11/07/2011 11:51 AM CST INE BEADING MACHINE TENDER documented in this encounter Plan of Treatment Scheduled Orders Name Type Priority Associated Diagnoses Orde r Schedule JOSE-BAR VIRUS PCR QUANTITATIVE BLOOD Lab Routine Liver replaced by transplant (HCC) ONCE for 1 Occurrences starting 10/13/2011 until 10/13/2011 documented as of this encounter Procedures Procedure Name Priority Date/Time Associated Diagnosis Comments JOSE-DE LA CRUZ VIRUS PCR QUANT BLOOD/CSF Routine 10/13/2011 8:05 AM TOPLINE BEADING MACHINE TENDER Neutropenia associated with autoimmune disease (HCC) CBC W MANUAL DIFFERENTIAL Timed 10/13/2011 8:05 AM TOPLINE BEADING MACHINE TENDER Neutropenia associated with autoimmune disease (HCC) COMPREHENSIVE METABOLIC PANEL Timed 10/13/2011 8:05 AM TOPLINE BEADING MACHINE TENDER Liver replaced by transplant (HCC) IGG BLOOD Timed 10/13/2011 8:05 AM TOPLINE BEADING MACHINE TENDER Hypogammaglobuline justine (HCC) documented in this encounter Results * (ABNORMAL) COMPREHENSIVE METABOLIC PANEL (10/13/2011 8:05 AM TOPLINE BEADING MACHINE TENDER) Sodium 142 137 - 145 mmol/L [facility] Potassium 3.8 3.5 - 5.1 mmol/L [facility] Chloride 107 98 - 107 mmol/L [facility] CO2 25.3 22 - 30 mmol/L [facility] Glucose 96 70 - 106 mg/dl [facility] BUN 16.3 8 - 21 mg/dl [facility] Calcium 9.2 8.9 - 10.7 mg/dl [facility] Bilirubin Total 0.4(L) 0.6 - 1.4 mg/dl [facility] Protein Total 6.4 6.3 - 8.6 gm/dl [facility] Albumin 3.9 3.7 - 5.6 gm/dl [facility] ALT 32 10 - 40 Units/L [facility] AST 32 10 - 45 Units/L [facility] Alkaline Phosphatase 105 65 - 260 Units/L [facility] Creatinine 0.81 0.50 - 1.06 mg/dl [facility] Blood specimen (specimen) BLOOD SPECIMEN / Unknown 10/13/2011 8:05 AM TOPLINE BEADING MACHINE TENDER 10/13/2011 8:18 AM TOPLINE BEADING MACHINE TENDER Philip Chavez MD LAB - CHEMISTRY O RDERABLES Performing Organization Address [facility] Co de Phone Number [facility] [address] [place] [address] * (ABNORMAL) IGG BLOOD (10/13/2011 8:05 AM TOPLINE BEADING MACHINE TENDER) IgG 522(L) 639 - 1349 mg/dl [facility] Blood specimen (specimen) BLOOD SPECIMEN / Unknown 10/13/2011 8:05 AM TOPLINE BEADING MACHINE TENDER 10/13/2011 8:18 AM TOPLINE BEADING MACHINE TENDER Philip Chavez MD LAB - CHEMISTRY O RDERABLES Performing Organization Address [facility] [[email or web address]] de Phone Number [facility] [address] [place] [address] * (ABNORMAL) CBC W MANUAL DIFFERENTIAL (10/13/2011 8:05 AM TOPLINE BEADING MACHINE TENDER) WBC 6.66 4.5 - 11.0 K/cumm [facility] RBC 4.97 4.50 - 5.30 mill/cumm [facility] Hemoglobin 16.2(H) 13.0 - 16.0 gm/dl [facility] Hematocrit 44.2 37.0 - 49.0 % [facility] MCV 88.9 78.0 - 98.0 cu microns [facility] MCH 32.6 25.0 - 35.0 uug [facility] MCHC 36.7 31.0 - 37.0 % [facility] RDW 12.6 % [facility] MPV 11.0 fl [facility] Platelet Count 201 100 - 400 K/cumm [facility] Comment Manual Diff Done [facility] Neutrophils % Manual 58 31 - 78 % [facility] Lymphocytes % Manual 20 13 - 54 % [facility] Monocytes % Manual 11 4 - 13 % [facility] Eosinophils % Manual 3 0 - 8 % [facility] Basophils % Manual 1 0 - 1 % [facility] Atypical Lymphocyte % Manual 7 % [facility] RBC Morphology Slight Anisocytosis, Poikylocytosis [facility] BLOOD SPECIMEN / Unknown 10/13/2011 8:05 AM TOPLINE BEADING MACHINE TENDER 10/13/2011 8:18 AM TOPLINE BEADING MACHINE TENDER Philip Chavez MD LAB - HEMATOLOGY ORDERABLES Performing Organization Address City/State/[facility] Co de Phone Number [facility] [address] [place] [address] * JOSE-BAR VIRUS PCR QUANTITATIVE BLOOD (10/13/2011 8:05 AM TOPLINE BEADING MACHINE TENDER) Joes-De La Cruz Virus DNA PCR Quantitative Positive for EBV DNA but below the level of accurate quantitatio n. NO EBV DNA detected Copies/mL [facility] Jose-De La Cruz Virus DNA Quantitative log copy Positive for EBV DNA but below the level of accurate quantitatio n. log 10 copies/mL [facility] Comment EBV PCR [facility] Comment: This assay has [...] ??EBV levels can vary by speimen type: [facility] uses whole blood which is more [...] characteristics determined by the [facility]. ??It has not been cleared [...] clinical laboratory testing. BLOOD SPECIMEN / Unknown 10/13/2011 8:05 AM TOPLINE BEADING MACHINE TENDER 10/13/2011 8:18 AM TOPLINE BEADING MACHINE TENDER Philip Chavez MD LAB - MICROBIOLOG Y ORDERABLES Performing Organization Address City/State/[facility] Co de Phone Number [facility] [address] [place] [address] documented in this encounter Visit Diagnoses Diagnosis Liver replaced by transplant (HCC) Liver replaced by transplant Hypogammaglobulinemia (HCC) Hypogammaglobulinaemia, unspecified Neutropenia associated with autoimmune disease (HCC) Other neutropenia documented in this encounter Care Teams Laboratory Geneticist Relationship Specialty Start Date End Date Vilma Spangler MD [address] [place] [address] PCP - General 01/05/11 documented as of this encounter
--- OUTSIDE RECORDS SUMMARY | 2024-10-28 05:57 | XMS_ITS | Encounter Summary ---
Author Organization [facility] Address [address] [place] [address] Care Team Providers Care Motorized Squad Commanding Officer Name Role Phone Vilma Spangler MD Primary Care Provider [phone] Encounter Details Date Type Department Care Team (Late st Contact Info) Description 11/04/2011 Orders Only [facility] [address] [place] [address] Sherin Little RN Social History Tobacco Use Types Packs/Day Years Used Date Smoking Tobacco: Never Smokeless Tobacco: Never Alcohol Use Standard Drinks/Week Comments No 0 (1 standard drink = 0.6 oz pur e alcohol) Sex and Gender Information Value Date Recorded Sex Assigned at Not on file Gender Identity Not on file Sexual Orientation Not on file documented as of this encounter Progress Notes * Sherin Little RN - 11/04/2011 4:05 PM CST Spoke to Niurka in transplant. She faxed order for refill on Prograf yesterday. MUSICIAN * Houston Chao MD - 11/04/2011 3:08 PM CST Sherin: please forward this to Niurka Gutierrez ([place] office). thanks MUSICIAN * Sherin Little RN - 11/04/2011 1:45 PM CST Request to refill Prograf 1mg po BID with 3 refills today ... Last Tacro level in Oct ... I will consult with Dr. Chao. MUSICIAN documented in this encounter Plan of Treatment Not on file documented as of this encounter Visit Diagnoses Not on filedocumented in this encounter Care Teams Motorized Squad Commanding Officer Relationship Specialty Start Date End Date Vilma Spangler MD [address] [address] PCP - General 01/05/11 documented as of this encounter
--- OUTSIDE RECORDS SUMMARY | 2024-10-28 05:57 | XMS_ITS | Encounter Summary ---
Author Organization [facility] Address [address] [place] [address] Care Team Providers Care Insulator Technician Name Role Phone Vilma Spangler MD Primary Care Provider [phone]- [phone] Encounter Details Date Type Department Care Team (Late st Contact Info) Description 03/23/2012 Hospital Outpatient Visit [facility] PET [address] [place] [address] Philip Chavez MD [address] [place] [id number] Discharge Disposition: Home or Self Care Social [...] on filedocumented in this encounter Care Teams Insulator Technician Relationship Specialty Start Date End Date Vilma Spangler MD [address] [address] PCP - General 01/05/11 documented as of this encounter
--- OUTSIDE RECORDS SUMMARY | 2024-10-28 05:57 | XMS_ITS | Encounter Summary ---
Author Organization [facility] Address [address] [place] [address] Care Team Providers Care Service Center Appraiser Name Role Phone Vilma Spangler MD Primary Care Provider [phone]- [phone] Encounter Details Date Type Department Care Team (Latest Contact Info) Description 03/18/2012 7:00 AM CDT - 03/18/2012 7:04 AM CDT Hospital Encounter [facility] at [address] [phone] Discharge Disposition: Home or Self Care Social [...] Reading Time Taken Comments Blood Pressure 100/72 03/18/2012 7:00 AM CDT Pulse 84 03/18/2012 7:00 AM CDT Temperature 36.9 ??C (98.4 ??F) 03/18/2012 7:00 AM CD T Respiratory Rate 20 03/18/2012 7:00 AM CDT Oxygen Saturation 98% 03/18/2012 7:00 AM CDT Inhaled Oxygen Concentration - - Weight 53.1 kg (117 lb 1 oz) 03/18/2012 7:00 AM CDT Height 169 cm (5' 6.54 ) 03/18/2012 7:00 AM CDT Body Mass Index 18.59 03/18/2012 7:00 AM CDT documented in this encounter [...] Progress Notes * Philip Chavez MD - 03/18/2012 3:16 PM CDT Multiple enlarged cervical nodes. No clear infectious etiology. Discussed case with Dr. Rivas and fernie is that biopsy of the nodes is indicated to r/o lymphoma. Plan PET scan. * Lisandra Simmons RN - 03/18/2012 10:28 AM CDT Patient in clinic for scheduled CT scan and PPD read. Patient triaged and assessed by RN. No problems or complaints reported to this RN at present time. Patient's PPD negative. #22 placed to left AC without difficulty, flushes easily with NS and blood return noted. Blood obtained from line should labs be required. Patient and family ambulated to radiology for CT scan and dcd home to rtc in 3-4 weeks for IVIG and visit with Dr. Chavez. Patient states that appointment has already been made. documented in this encounter Miscellaneous Notes * Miscellaneous Scans - Document, Scanned - 06/20/2012 10:00 AM CDT documented in this encounter Plan of Treatment Not on file documented as of this encounter Visit Diagnoses Not on filedocumented in this encounter Care Teams Service Center Appraiser Relationship Specialty Start Date End Date Vilma Spangler MD [address] [place] [address] PCP - General 01/05/11 documented as of this encounter
--- OUTSIDE RECORDS SUMMARY | 2024-10-28 05:57 | XMS_ITS | Encounter Summary ---
Author Organization [facility] Address [address] [place] [address] Care Team Providers Care Food Mixer Repairer Name Role Phone Vilma Spangler MD Primary Care Provider Encounter Details Date Type Department Care Team (Latest Contact Info) Description 08/17/2011 7:40 AM CDT - 08/17/2011 11:59 PM CDT Hospital Encounter [facility] at [address] [address] Discharge Disposition: Home or Self [...] Sign Reading Time Taken Comments Blood Pressure 102/62 08/17/2011 8:00 AM CDT Pulse 88 08/17/2011 8:00 AM CDT Temperature 36 ??C (96.8 ??F) 08/17/2011 8:00 AM CDT Respiratory Rate 24 08/17/2011 8:00 AM CDT Oxygen Saturation 98% 08/17/2011 8:00 AM CDT Inhaled Oxygen Concentration - - Weight 53.1 kg (117 lb 1 oz) 08/17/2011 8:00 AM CDT Height 168.7 cm (5' 6.42 ) 08/17/2011 8:00 AM CD T Body Mass Index 18.66 08/17/2011 8:00 AM CDT Body Mass Index Percentile 6.04% 08/17/2011 8:0 0 AM CDT Growth Chart: CDC (Boys, 2-2 [...] Progress Notes * Sherry Rebolledo RN - 08/17/2011 5:18 PM CDT Received report from Elizabeth Mcgrath RN. Administered pre-medication for IVIG. Peripheral IV flushes and has blood return. Dressing dry and intact. Administered IVIG, patient tolerated well. No signs or symptoms of reaction. Patient's infusion complete. IV flushed and D/C catheter intact. Patient D/C home with father. * Papo Mcgrath RN - 08/17/2011 10:40 AM CDT Pt arrived in clinic, triaged, and assessed by RN. Here for scheduled IVIG infusion. No c/o per pt to this RN at this time. PIV #24 inserted into LAC without difficulty and labs obtained and sent. NSflushes well. Report given to Charles Rebolledo RN. documented in this encounter Miscellaneous Notes * Miscellaneous Scans - Document, Scanned - 09/23/2011 7:46 PM CST TOR SERVICES INFORMATION ASSISTANT * Miscellaneous Scans - Document, Scanned - 09/23/2011 7:45 PM CST TOR SERVICES INFORMATION ASSISTANT documented in this encounter Plan of Treatment Not on file documented as of this encounter Procedures Procedure Name Priority Date/Time Associated Diagnosis Comments TACROLIMUS LEVEL Routine 08/17/2011 8:45 AM CDT Liver replaced by transplant (HCC) JOSE-DE LA CRUZ VIRUS PCR QUANT BLOOD/CSF Timed 08/17/2011 8:45 AM CDT 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) DIFFERENTIAL MANUAL Timed 08/17/2011 8 :45 AM CDT CBC W AUTO DIFFERENTIAL Timed 08/17/2011 8:45 AM CDT 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) COMPREHENSIVE METABOLIC PANEL Timed 08/17/2011 8:45 AM CDT 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) IGG BLOOD Timed 08/17/2011 8:45 AM CDT 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) documented in this encounter Results * (ABNORMAL) DIFFERENTIAL MANUAL (08/17/2011 8:45 AM CDT) Comment Manual Diff Done [facility] Band % Manual 2 % [facility] Neutrophils % Manual 66 31 - 78 % [facility] Lymphocytes % Manual 14 13 - 54 % [facility] Monocytes % Manual 14(H) 4 - 13 % [facility] Eosinophils % Manual 2 0 - 8 % [facility] Atypical Lymphocyte % Manual 2 % [facility] RBC Morphology Few poly. [facility] BLOOD SPECIMEN / Unknown 08/17/2011 8:45 AM CDT 08/17/2011 9:45 AM CDT Philip Chavez MD LAB - HEMATOLOGY ORDERABLES [facility] [address] [place] [address] * (ABNORMAL) COMPREHENSIVE METABOLIC PANEL (08/17/2011 8:45 AM CDT) Sodium 143 137 - 145 mmol/L [facility] Potassium 4.2 3.5 - 5.1 mmol/L [facility] Chloride 108(H) 98 - 107 mmol/L [facility] CO2 24.8 22 - 30 mmol/L [facility] Glucose 85 70 - 106 mg/dl [facility] BUN 20.6 8 - 21 mg/dl [facility] Calcium 8.7(L) 8.9 - 10.7 mg/dl [facility] Bilirubin Total 0.5(L) 0.6 - 1.4 mg/dl [facility] Protein Total 6.6 6.3 - 8.6 gm/dl [facility] Albumin 4.1 3.7 - 5.6 gm/dl [facility] ALT 32 10 - 40 Units/L [facility] AST 40 10 - 45 Units/L [facility] Alkaline Phosphatase 99 65 - 260 Units/L [facility] Creatinine 1.04 0.50 - 1.06 mg/dl [facility] Blood specimen (specimen) BLOOD SPECIMEN / Unknown 08/17/2011 8:45 AM CDT 08/17/2011 9:03 AM CDT Philip Chavez MD LAB - CHEMISTRY O RDERABLES Performing Organization Address [facility] Co de Phone Number [facility] [address] [place] [phone] * IGG BLOOD (08/17/2011 8:45 AM CDT) IgG 701 639 - 1349 mg/dl [facility] Blood specimen (specimen) BLOOD SPECIMEN / Unknown 08/17/2011 8:45 AM CDT 08/17/2011 9:03 AM CDT Philip Chavez MD LAB - CHEMISTRY O RDERAVERN Performing Organization Address [facility] Co de Phone Number [facility] [address] [place] [phone] * CBC W AUTO DIFFERENTIAL (08/17/2011 8:45 AM CDT) WBC 7.68 4.5 - 11.0 K/cumm [facility] RBC 4.86 4.50 - 5.30 mill/cumm [facility] Hemoglobin 16.0 13.0 - 16.0 gm/dl [facility] Hematocrit 43.5 37.0 - 49.0 % [facility] MCV 89.5 78.0 - 98.0 cu microns [facility] MCH 32.9 25.0 - 35.0 uug [facility] MCHC 36.8 31.0 - 37.0 % [facility] RDW 13.5 % [facility] MPV 10.6 fl [facility] Platelet Count 214 100 - 400 K/cumm [facility] Comment Manual Diff Done [facility] Blood specimen (specimen) BLOOD SPECIMEN / Unknown 08/17/2011 8:45 AM CDT 08/17/2011 9:03 AM CDT Philip Chavez MD LAB - HEMATOLOGY ORDERABLES [facility] [address] [facility] [place] [address] * JOSE-BAR VIRUS PCR QUANTITATIVE BLOOD (08/17/2011 8:45 AM CDT) Jose-De La Cruz Virus DNA PCR Quantitative NO EBV DNA detected NO EBV DNA detected Copies/mL [facility] Comment EBV PCR [facility] Comment: This assay has [...] ??EBV levels can vary by speimen type: [facility] uses whole blood which is more [...] characteristics determined by the [facility]. ??It has not been cleared or [...] clinical laboratory testing. BLOOD SPECIMEN / Unknown 08/17/2011 8:45 AM CDT 08/17/2011 9:03 AM CDT Philip Chavez MD LAB - MICROBIOLOG Y ORDERABLES Performing Organization Address [facility] Co de Phone Number [facility] [address] [place] [phone] * TACROLIMUS LEVEL (08/17/2011 8:45 AM CDT) Tacrolimus 3.4 3.0 - 12.0 ng/ml [facility] Blood specimen (specimen) BLOOD SPECIMEN / Unknown 08/17/2011 8:45 AM CDT 08/17/2011 9:03 AM CDT Houston Chao MD LAB - THERAPEUTIC DR MCCLELLAN MONITORING ORDERABLES Performing Organization Address [facility] de Phone Number [facility] [address] [place] [phone] documented in this encounter Visit Diagnoses Diagnosis Liver replaced by transplant (HCC) Liver replaced by transplant Hypogammaglobulinemia (HCC) Hypogammaglobulinaemia, unspecified Neutropenia associated with autoimmune disease (HCC) Other neutropenia documented in this encounter Administered Medications Inactive Administered Medications - up to 3 most recent administrations Medication Order MAR Action Action Date Dose Rate Site acetaminophen (TYLENOL) tablet 650 mg 650 mg, Oral, ONCE PRN, premed IVIG, 1 dose, Starting on Wed08/17/11 at 0831, Until Wed08/17/11 at 0903, Maximum allowable Acetaminophen amount = 4 Grams (4000 mg) / 24 hours. $ Given 08/17/2011 9:03 AM CDT 650 mg diphenhydrAMINE (BENADRYL) tablet 25 mg 25 mg, Oral, ONCE, 1 dose, On Wed08/17/11 at 0915 $ Given 08/17/2011 9:03 AM CDT 25 mg immune globulin (human) (GAMMAGARD;GAMUNEX;PRIVIGEN) 10% infusion 25 g 25 g, Intravenous, ONCE, 1 dose, On Wed08/17/11 at 0930 $ Given 08/17/2011 9:15 AM CDT 25 g documented in this encounter Care Teams Food Mixer Repairer Relationship Specialty Start Date End Date Vilma Spangler MD [address] [place] [address] PCP - General 01/05/11 documented as of this encounter
--- OUTSIDE RECORDS SUMMARY | 2024-10-28 05:57 | XMS_ITS | Encounter Summary ---
Author Organization [facility] Address [address] [place] [address] Care Team Providers Care Development Geologist Name Role Phone Vilma Spangler MD Primary Care Provider [phone] Reason for Visit * Reason Comments Fatigue Encounter Details Date Type Department Care Team (Latest Contact Info) Description 11/11/2012 8:31 AM PARAGLIDING INSTRUCTOR - 11/11/2012 11:59 PM PARAGLIDING INSTRUCTOR Hospital Encounter [facility] at [address] [id number] Jason Fischer MD [address] [place] [phone] Discharge Disposition: Home or Self Care Social [...] Sign Reading Time Taken Comments Blood Pressure 98/70 11/11/2012 10:30 AM PARAGLIDING INSTRUCTOR Pulse 72 11/11/2012 10:30 AM PARAGLIDING INSTRUCTOR Temperature 36.2 ??C (97.2 ??F) 11/11/2012 10:[address] Respiratory Rate 18 11/11/2012 10:30 AM PARAGLIDING INSTRUCTOR Oxygen Saturation 99% 11/11/2012 10:30 AM PARAGLIDING INSTRUCTOR Inhaled Oxygen Concentration - - Weight 55.8 kg (123 lb) 11/11/2012 10:30 AM PARAGLIDING INSTRUCTOR Height 169 cm (5' 6.54 ) 11/11/2012 10:30 AM PARAGLIDING INSTRUCTOR Body Mass Index 19.53 11/11/2012 10:30 AM PARAGLIDING INSTRUCTOR documented in this encounter Discharge Instructions * Patient Instructions* Regine Wang MD - 11/11/2012 11:08 AM PARAGLIDING INSTRUCTOR WHAT YOU NEED TO KNOW ABOUT ACNE Most teenagers get acne, but some get bad acne. Acne can be treated but it can???t be cured. So if you want to prevent you acne from getting worse, and you want clear skin, you have to get in the habit of using medication every day, just like brushing your teeth. You have to brush your teeth twice a day for the rest of your life, but you only have to use acne medication for several months, or years. What causes acne? Pimples begin in your pores, which are connected to oil glands. You probably noticed that your skinand hair are more oily. The same hormones that kick in at puberty cause the oil glands to grow and make more oil. When the oil and cells that line your pores stick together, the pore gets blocked, forming a blackhead or gaytan. The blackhead is not dirt, so scrubbing can???t remove it. Whiteheads form larger pimples when the oil, cells and germs collected in the pore break through the pore wall and cause irritation under the skin. What makes acne worse? ?? Picking ?? Washing too often or scrubbing ?? Friction - for example, helmet chin straps or tight hatbands ?? Menstrual cycles ?? Stress makes everything worse, including acne. Exercise, plenty of sleep and a healthy diet helpreduce stress. ?? Experts disagree about whether certain foods make acne worse. Artas foods can make skin more oily. A few experts think drinking a lot of milk can make acne worse. What does not make acne worse? ?? Dirt does not cause acne. You do not need to wash multiple times a day or use astringents, masksor scrubbers. ?? Makeup does not cause acne, but the safest products are labeled ???oil- free?? , ??? nonacnegenic?? or ???noncomedogenic.?? . How is acne treated? There are many effective medications to choose from. The biggest difference in the products is the feel or smell. Some medications cause side effects in some people. Your doctor will help you choose the medication that you will like best. Some people need to use more than one medication. You will need to use medicine every day for about 6 weeks to see a change in your skin. Be patient. Don???t give up. How to use topical medications ?? Start with a little and increase the amount gradually. Too much medicine can make your skin dry or red. The right starting amount is a pea-sized dab. Dot the cream on each side of your forehead, each side of your cheek and your chin, then spread a thin layer over your entire face. Use twice as much on your back and chest. Gradually increase the amount, as tolerated. ?? Remember that the medicine should be placed over the entire problem area and not just on the pimples. ?? If your skin gets dry, use a moisturizer (e.g. mineral oil), best applied immediately after washing. ?? If your skin becomes red or sore, call our office for advice. How long must the medicines be used? Acne can last for years but usually gets better after age 25. If you have a lot of relatives who had acne, or your acne started before you were 8 years old, you may need stronger or prolonged treatment. The kind of medication and length of treatment you will need depends on your skin. Prescribed Medications Name Apply AM Apply PM Additional Instructions tretinoin X Wait at least 20 minutes after washing your face. Apply sparingly. If irritation occurs, use a moisturizer-best applied immediately after washing. Use at least 20 gm/month benzoyl peroxide/clinamycin (Benzaclin, Acanya) X Be aware, this medication can bleach fabric; rinse your hands after applying to avoid ruining dark towels and abarca. WHEN YOU COME BACK, BRING IN ALL THE MEDICATIONS YOU HAVE FILLED - INCLUDING THE EMPTY CONTAINERS GLIDING INSTRUCTOR * Discharge Instructions* Document, Scanned - 11/14/2012 6:38 AM PARAGLIDING INSTRUCTOR GLIDING INSTRUCTOR documented in this encounter Medications at Time [...] Progress Notes * Minnie Rogers RN - 11/11/2012 2:06 PM CST 1220 IVF complete, immunizations given. Yesenia well. Discharged with Mom to get counts at home next Weds or . To fllow up as needed. GLIDING INSTRUCTOR * Philip Chavez MD - 11/11/2012 11:58 AM CST Beka is here today for counts and secondary to two week history of generalized malaise with congestions/rhinorrhea. No fevers. No bleeding. Off steroids since last week. Concerned about papular rash to chest/back. Tried to pop one of the areas and noted blood. No pustules. Occasionally pruritic Current Outpatient Prescriptions on File Prior to Encounter Medication Sig Dispense Refill ? acetaminophen (TYLENOL) 325 MG tablet Take 325 mg by mouth every 4 hours as needed. Maximum allowable Acetaminophen amount = 4 Grams (4000 mg) / 24 hours. ??? tacrolimus (PROGRAF) 1 MG capsule Take 1 Cap by mouth 2 times daily. 60 Cap 6 No current facility-administered medications on file prior to encounter. BP 98/70 Pulse 72 Temp 97.2 ??F Resp 18 Wt 55.792 kg (123 lb) BMI 19.53 kg/m2 Awake and alert. Tired Lungs clear. No distress Heart Regular OP clear Abdomen soft and nontender Acne like rash to upper back/shoulders/upper chest and neck. Discrete scattered erythematous papules No petechia visible Recent Results (from the past 72 hour(s)) CBC W AUTO DIFFERENTIAL Collection Time 11/11/12 10:19 AM Component Value Range WBC 7.9 4.4-10.7 x10^9/L RBC 5.27 3.80-5.40 x10^12/L Hgb 17.3 12.0-17.6 g/dL HCT 48.1 35.2-51.7 % MCV 91.3 80.7-98.3 fl MCH 32.8 26.7-34.0 pg MCHC 36.0 (*) 30.8-35.9 gm/dL RDW-CV 13.5 12.1-14.9 % MPV 11.6 9.4-12.9 fl Neutro 74 (*) 44-73 % Lymph 15 (*) 20-43 % Cabell 9 5-13 % Eos 2 0-6 % Baso 0 0-2 % Immature Grans 0.5 0-1 % Neutro Abs 5.80 2.01-7.14 x10^9/L Lymph Abs 1.20 1.07-3.94 x10^9/L Cabell Abs 0.69 0.26-1.07 x10^9/L Eosin Abs 0.13 0-0.47 x10^9/L Baso Abs 0.01 0-0.08 x10^9/L Immature Grans Abs 0.04 0.00-0.06 x10^9/L Hemo Reflex Status Manual Diff to follow (none) Plt Ct 73 (*) 153-416 x10^9/L IGG BLOOD Collection Time 11/11/12 10:19 AM Component Value Range IgG 368 547-2908 mg/dL COMPREHENSIVE METABOLIC PANEL Collection Time 11/11/12 10:19 AM Component Value Range Glucose 56 (*) 70-105 mg/dL Sodium 142 136-145 mmol/L Potassium 3.6 3.5-5.1 mmol/L Chloride 106 98-107 mmol/L CO2 25 22-29 mmol/L Calcium 9.83 9.08-10.48 mg/dL Anion Gap 11 5-20 mmol/L BUN 12.6 5.3-18.7 mg/dL Creatinine 0.87 0.61-1.07 mg/dL eGFR by MDRD >60 >60 ml/min/1.73m2 eGFR by MDRD AFR AMER >60 >60 ml/min/1.73m2 Alk Phos 155 (*) 39-139 U/L ALT/SGPT 81 (*) 6-46 U/L AST/SGOT 37 8-42 U/L Protein Total 7.6 6.3-8.2 gm/dL Albumin 4.2 3.3-4.9 gm/dL Bili Total 0.6 0.3-1.2 mg/dL A/P 1. 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 Historically difficult to manage with IVIG and corticosteroids. IVIG recently with transient rise. Modest response to corticosteroids. After long discussions with the family we have elected to proceed with splenectomy. Surgery has seen. Pneumovax and Menactra given today. Platelets stable off prednisone. Will plan to give IVIG 2-3 days prior to surgery. 2. Decreased energy: Persistent URI symptoms. May be sinusitis. Attempt trial of Augmentin 875 mg PO BID for 10 days. EBV PCR sent 3. 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 IgG OK today 4. Acne: Rash reviewed with Dermatology. Images of rash included in review. Suggested Benzaclin with topical isotretinoin. Discussed with Beka who wishes not to treat at the current moment. 5. H/O liver transplant: ALT up somewhat. Will repeat next week. Will notify GI GLIDING INSTRUCTOR * Minnie Rogers RN - 11/11/2012 10:42 AM CST Arrives in clinic with c/o fatigue,cold symtoms and red acne like rash to back/shoulders. 22 g insite startyed to L ac, ordered labs obtained and IVF started. Dr Chavez in to see pt. GLIDING INSTRUCTOR documented in this encounter Procedure Notes * Document, Scanned - 12/07/2012 6:03 AM CSTAssociated Order(s): LAB RESULTS ORDER GLIDING INSTRUCTOR documented in this encounter Miscellaneous Notes * Miscellaneous Scans - Document, Scanned - 12/14/2012 6:08 AM CST GLIDING INSTRUCTOR * Miscellaneous Scans - Document, Scanned - 11/30/2012 11:29 AM CST GLIDING INSTRUCTOR documented in this encounter Plan of Treatment Not on file documented as of this encounter Procedures Procedure Name Priority Date/Time Associated Diagnosis Comments LAB RESULTS ORDER 12/07/2012 6:0 3 AM PARAGLIDING INSTRUCTOR JOSE-DE LA CRUZ VIRUS PCR QUANT BLOOD/CSF Routine 11/11/2012 10:19 AM PARAGLIDING INSTRUCTOR Neutropenia associated with autoimmune disease (HCC) CBC W AUTO DIFFERENTIAL ZAHRA 11/11/2012 10:19 AM PARAGLIDING INSTRUCTOR Neutropenia associated with autoimmune disease (HCC) COMPREHENSIVE METABOLIC PANEL ZAHRA 11/11/2012 10:19 AM PARAGLIDING INSTRUCTOR Hypogammaglobuline justine (HCC) IGG BLOOD ZAHRA 11/11/2012 10:19 AM PARAGLIDING INSTRUCTOR Hypogammaglobuline justine (HCC) DIFFERENTIAL MANUAL Routine 11/11/2012 1 0:19 AM PARAGLIDING INSTRUCTOR Neutropenia associated with autoimmune disease (HCC) documented in this encounter Results * LAB RESULTS ORDER (12/07/2012 6:03 AM PARAGLIDING INSTRUCTOR) Narrative 12/07/2012 6:03 AM PARAGLIDING INSTRUCTOR Procedure Note Document, Scanned - 12/07/2012 6:03 AM CST Scanned Document LAB - THERAPEUTIC DR MCCLELLAN MONITORING ORDERABLES * (ABNORMAL) COMPREHENSIVE METABOLIC PANEL (11/11/2012 10:19 AM PARAGLIDING INSTRUCTOR) Glucose 56(L) 70 - 105 mg/dL 11/11/2012 11:05 AM [facility] Sodium 142 136 - 145 mmol/L 11/11/2012 11:05 AM [facility] Potassium 3.6 3.5 - 5.1 mmol/L 11/11/2012 11:05 AM [facility] Chloride 106 98 - 107 mmol/L 11/11/2012 11:05 AM [facility] CO2 25 22 - 29 mmol/L 11/11/2012 11:05 AM [facility] Calcium 9.83 9.08 - 10.48 mg/dL 11/11/2012 11:05 AM [facility] Anion Gap 11 5 - 20 mmol/L 11/11/2012 11:05 AM [facility] BUN 12.6 5.3 - 18.7 mg/dL 11/11/2012 11:05 AM [facility] Creatinine 0.87 0.61 - 1.07 mg/dL 11/11/2012 11:05 AM [facility] eGFR by MDRD >60 >60 ml/min/1.7 3m2 11/11/2012 11:05 AM [facility] eGFR by MDRD >60 >60 ml/min/1.7 3m2 11/11/2012 11:05 AM [facility] Alkaline Phosphatase 155(H) 39 - 139 U/L 11/11/2012 11:05 AM [facility] ALT 81(H) 6 - 46 U/L 11/11/2012 11:05 AM [facility] AST 37 8 - 42 U/L 11/11/2012 11:05 AM [facility] Protein Total 7.6 6.3 - 8.2 gm/dL 11/11/2012 11:05 AM [facility] Albumin 4.2 3.3 - 4.9 gm/dL 11/11/2012 11:05 AM [facility] Bilirubin Total 0.6 0.3 - 1.2 mg/dL 11/11/2012 11:05 AM [facility] Blood specimen (specimen) BLOOD SPECIMEN / Unknown 11/11/2012 10:19 AM [facility] 11/11/2012 10:42 AM [facility] Philip Chavez MD LAB - CHEMISTRY O RDERABLES Performing Organization Address City/State/[facility] Co de Phone Number [facility] [address] [place] [address] * JOSE-BAR VIRUS PCR QUANTITATIVE BLOOD (11/11/2012 10:19 AM [facility]) Jose-De La Cruz Virus DNA PCR Quantitative No EBV DNA detected No EBV DNA detected 11/11/2012 3:35 PM [facility] Blood specimen (specimen) BLOOD SPECIMEN / Unknown 11/11/2012 10:19 AM PARAGLIDING INSTRUCTOR 11/11/2012 10:42 AM PARAGLIDING INSTRUCTOR Narrative [facility] - 11/11/2012 3:35 PM PARAGLIDING INSTRUCTOR This assay has a lower limit of [...] ??EBV levels can vary by ??specimen type: [facility] uses whole blood which is more [...] - MICROBIOLOG Y ORDERABLES Performing Organization Address City/State/[facility] Co de Phone Number [facility] [address] [place] [address] * IGG BLOOD (11/11/2012 10:19 AM PARAGLIDING INSTRUCTOR) IgG 729 540 - 1,822 mg/dL 11/11/2012 11:05 AM PARAGLIDING INSTRUCTOR [facility] Blood specimen (specimen) BLOOD SPECIMEN / Unknown 11/11/2012 10:19 AM PARAGLIDING INSTRUCTOR 11/11/2012 10:41 AM [facility] Philip Chavez MD LAB - CHEMISTRY O RDERABLES [facility] [employer] [facility] [place] [address] * (ABNORMAL) CBC W AUTO DIFFERENTIAL (11/11/2012 10:19 AM [facility]) WBC 7.9 4.4 - 10.7 x10^9/L 11/11/2012 10:54 AM [facility] RBC 5.27 3.80 - 5.40 x10^12/L 11/11/2012 10:54 AM [facility] Hemoglobin 17.3 12.0 - 17.6 g/dL 11/11/2012 10:54 AM [facility] Hematocrit 48.1 35.2 - 51.7 % 11/11/2012 10:54 AM [facility] MCV 91.3 80.7 - 98.3 fl 11/11/2012 10:54 AM [facility] MCH 32.8 26.7 - 34.0 pg 11/11/2012 10:54 AM [facility] MCHC 36.0(H) 30.8 - 35.9 gm/dL 11/11/2012 10:54 AM [facility] RDW-CV 13.5 12.1 - 14.9 % 11/11/2012 10:54 AM [facility] MPV 11.6 9.4 - 12.9 fl 11/11/2012 10:54 AM [facility] Neutrophils % 74(H) 44 - 73 % 11/11/2012 10:54 AM [facility] Lymphocytes % 15(L) 20 - 43 % 11/11/2012 10:54 AM [facility] Monocytes % 9 5 - 13 % 11/11/2012 10:54 AM [facility] Eosinophils % 2 0 - 6 % 11/11/2012 10:54 AM [facility] Basophils % 0 0 - 2 % 11/11/2012 10:54 AM [facility] Immature Granulocytes 0.5 0 - 1 % 11/11/2012 10:54 AM [facility] Neutrophil Absolute 5.80 2.01 - 7.14 x10^9/L 11/11/2012 10:54 AM [facility] Lymphocytes Absolute 1.20 1.07 - 3.94 x10^9/L 11/11/2012 10:54 AM [facility] Monocytes Absolute 0.69 0.26 - 1.07 x10^9/L 11/11/2012 10:54 AM [facility] Eosinophils Absolute 0.13 0 - 0.47 x10^9/L 11/11/2012 10:54 AM [facility] Basophils Absolute 0.01 0 - 0.08 x10^9/L 11/11/2012 10:54 AM [facility] Immature Granulocytes Absolute 0.04 0.00 - 0.06 x10^9/L 11/11/2012 10:54 AM [facility] Hematology Reflex Status Manual Diff to follow (none) 11/11/2012 10:54 AM [facility] Platelet Count 73(L) 153 - 416 x10^9/L 11/11/2012 10:54 AM [facility] Blood specimen (specimen) BLOOD SPECIMEN / Unknown 11/11/2012 10:19 AM [facility] 11/11/2012 10:42 AM [facility] Philip Chavez MD LAB - HEMATOLOGY ORDERABLES Performing Organization Address City/State/[facility] Co de Phone Number [facility] [place] [address] * (ABNORMAL) DIFFERENTIAL MANUAL (11/11/2012 10:19 AM [facility]) WBC Auto 7.9 4.4 - 10.7 X(10)9/L 11/11/2012 12:08 PM [facility] Neutrophil % Manual 71 44 - 73 % 11/11/2012 12:08 PM [facility] Lymphocytes % Manual 17(L) 20 - 43 % 11/11/2012 12:08 PM [facility] Monocytes % Manual 4(L) 5 - 13 % 2012 12:08 PM [facility] Atypical Lymphocyte % Manual 7(H) <=0 % 11/11/2012 12:08 PM [facility] Band % Manual 1 0 - 11 % 11/11/2012 12:08 PM [facility] Cells Counted 100 # cells 11/11/2012 12:08 PM [facility] Platelet Estimation Decreased 11/11/2012 12:08 PM PARAGLIDING INSTRUCTOR [facility] WBC Morph Normal 11/11/2012 12:08 PM PARAGLIDING INSTRUCTOR [facility] Anisocytosis Slight 11/11/2012 12:08 PM PARAGLIDING INSTRUCTOR [facility] Poikilocytosis Slight 11/11/2012 12:08 PM PARAGLIDING INSTRUCTOR [facility] Blood specimen (specimen) BLOOD SPECIMEN / Unknown 11/11/2012 10:19 AM PARAGLIDING INSTRUCTOR 11/11/2012 10:42 AM PARAGLIDING INSTRUCTOR Philip Chavez MD LAB - HEMATOLOGY ORDERABLES Performing Organization Address City/State/[facility] Co de Phone Number [facility] [address] [place] [address] documented in this encounter Visit Diagnoses Diagnosis Hypogammaglobulinemia (HCC) Hypogammaglobulinaemia, unspecified Neutropenia associated with autoimmune disease (HCC) Other neutropenia Immune thrombocytopenic purpura (HCC) Immune thrombocytopenic purpura documented in this encounter Administered Medications Inactive Administered Medications - up to 3 most recent administrations Medication Order MAR Action Action Date Dose Rate Site 0.9% NaCl infusion at 1,000 mL/hr, Intravenous, CONTINUOUS, Starting on Wed11/11/12 at 1045, Until Wed11/11/12 at 1144 $ New Bag/Syringe 11/11/2012 10:15 AM PARAGLIDING INSTRUCTOR 1000 mL/hr documented in this encounter Care Teams Development Geologist Relationship Specialty Start Date End Date Vilma Spangler MD [address] [phone] PCP - General 01/05/11 documented as of this encounter
--- OUTSIDE RECORDS SUMMARY | 2024-10-28 05:57 | XMS_ITS | Encounter Summary ---
Author Organization [facility] Address [address] [place] [address] Care Team Providers Care Nuclear Test Technician Name Role Phone Vilma Spangler MD Primary Care Provider Encounter Details Date Type Department Care Team (Latest Contact Info) Description 03/18/2012 7:05 AM CDT - 03/18/2012 11:59 PM CDT Hospital Encounter [facility] - CT Scan [address] [place] [address] Discharge Disposition: Home or Self Care Social [...] Name Priority Date/Time Associated Diagnosis Comments CT NECK SOFT TISSUE W CONT Routine 03/18/2012 7:36 AM CDT Lymphadenopathy documented in this encounter Results * CT [...] otherwise intact. Philip Chavez MD CT ORDERABLES documented in this encounter Visit Diagnoses Diagnosis Lymphadenopathy Enlargement of lymph nodes documented in this encounter Administered Medications Inactive Administered Medications - up to 3 most recent administrations Medication Order MAR Action Action Date Dose Rate Site ioversol (OPTIRAY 320) 68 % injection Intravenous, CONTRAST ONCE, Starting on 03/18/12 at 0725, Until 03/19/12 at 1219 $ Given 03/18/2012 7:51 AM CDT 120 mL documented in this encounter Care Teams Nuclear Test Technician Relationship Specialty Start Date End Date Vilma Spangler MD [address] [place] [id number] PCP - General 01/05/11 documented as of this encounter
--- OUTSIDE RECORDS SUMMARY | 2024-10-28 05:57 | XMS_ITS | Encounter Summary ---
Author Organization [facility] Address [address] [place] [address] Care Team Providers Care Bilingual Customer Service Specialist Name Role Phone Vilma Spangler MD Primary Care Provider Reason for Visit * Reason Comments Epistaxis pt has had one every day for the last three days, one lasting 30-40 mins. pt with hx of liver transplant and low plts. Encounter Details Date Type Department Care Team (Latest Contact Info) Description 10/07/2012 9:45 AM [facility] - 10/07/2012 6:21 PM [facility] Emergency ER at [address] [address] Parish Rogers MD [address] [place] [phone] Fátima Oliveira MD [address] [place] [address] [id number] Thrombocytopenia (HCC); Epistaxis Discharge Disposition: Home or Self Care Social [...] Sign Reading Time Taken Comments Blood Pressure 112/52 10/07/2012 5:03 PM [facility] Pulse 67 10/07/2012 4:00 PM [facility] Temperature 36.3 ??C (97.4 ??F) 10/07/2012 3:06 PM CS T Respiratory Rate 21 10/07/2012 5:03 PM [facility] Oxygen Saturation 99% 10/07/2012 5:00 PM [facility] Inhaled Oxygen Concentration - - Weight 54.4 kg (120 lb) 10/07/2012 10:42 AM [facility] Height - - Body Mass Index 18.97 09/27/2012 11:27 AM [facility] documented in this encounter Discharge Instructions * Discharge Instructions* Covert, Azucena Bautista DO - 10/07/2012 5:17 PM [facility] Nosebleed Nosebleeds can be caused by many conditions including trauma, infections, polyps, foreign bodies, dry mucous membranes or climate, medications and air conditioning. Most nosebleeds occur in the frontof the nose. It is because of this location that most nosebleeds can be controlled by pinching the nostrils gently and continuously. Do this for at least 10 to 20 minutes. The reason for this long continuous pressure is that you must hold it long enough for the blood to clot. If during that 10 to 20 minute time period, pressure is released, the process may have to be started again. The nosebleed may stop by itself, quit with pressure, need concentrated heating (cautery) or stop with pressure from packing. HOME CARE INSTRUCTIONS ?? If your nose was packed, try to maintain the pack inside until your caregiver removes it. If a gauze pack was used and it starts to fall out, gently replace or cut the end off. Do not cut if a balloon catheter was used to pack the nose. Otherwise, do not remove unless instructed. ?? Avoid blowing your nose for 12 hours after treatment. This could dislodge the pack or clot and start bleeding again. ?? If the bleeding starts again, sit up and bending forward, gently pinch the front half of your nose continuously for 20 minutes. ?? If bleeding was caused by dry mucous membranes, cover the inside of your nose every morning witha petroleum or antibiotic ointment. Use your little fingertip as an applicator. Do this as needed during dry weather. This will keep the mucous membranes moist and allow them to heal. ?? Maintain humidity in your home by using less air conditioning or using a humidifier. ?? Do not use aspirin or medications which make bleeding more likely. Your caregiver can give you recommendations on this. ?? Resume normal activities as able but try to avoid straining, lifting or bending at the waist forseveral days. ?? If the nosebleeds become recurrent and the cause is unknown, your caregiver may suggest laboratory tests. SEEK IMMEDIATE MEDICAL CARE IF: ?? Bleeding recurs and cannot be controlled. ?? There is unusual bleeding from or bruising on other parts of the body. ?? You have a fever. ?? Nosebleeds continue. ?? There is any worsening of the condition which originally brought you in. ?? You become lightheaded, feel faint, become sweaty or vomit blood. MAKE SURE YOU: ?? Understand these instructions. ?? Will watch your condition. ?? Will get help right away if you are not doing well or get worse. Document Released: 07/28/2006 Document Revised: 06/29/2012 Document Reviewed: 09/19/2010 ExitCare?? Patient Information ??2011 [employer]. [facility] * Discharge Instructions* Document, Scanned - 10/11/2012 8:59 AM [facility] documented in this encounter Medications at Time of Discharge Medication Sig Dispensed Refills Start Date End Date oxycodone-acetaminophen (PERCOCET) 5-325 MG tablet Take 1 Tab by mouth every 4 hours as needed for Pain. 28 Tab 0 03/24/2012 10/27/2012 tacrolimus (PROGRAF) 1 MG capsule Take 1 Cap by mouth 2 times daily. 60 Cap 6 03/14/2012 12/28/2012 documented as of this encounter ED Notes * Fátima Oliveira MD - 10/07/2012 3:43 PM CST Assumed care of pt from Dr Rogers at change of shift. Pt with hx of thrombocytopenia after liver transplant, having epistaxis, plt count 16,000. Getting infusion of IVIG over next several hours, then home if no problems, family agreeable with plan. Pt other williamson stable. 6:11 PM Pt has completed infusion, was having some mild bleeding of nose, has stopped. D/w pt and mom. To apply pressure and apply ice. Comfortable to go home. [facility] * Yenny Michaels, SHAILESH - 10/07/2012 2:41 PM CST Mom states pt is having nose bleed. Dr. Pal and Dr. Rogers. Per Dr. Pal monitor time and applydirect pressure. [facility] * Kae, Azucena Bautista DO - 10/07/2012 11:30 AM CST Images from the original note were not included. EMERGENCY DEPARTMENT 10/07/[address] Vilma Spangler We had the pleasure of caring for your patient, Beka Nichols in our emergency department on 10/07/2012. A note from the provider(s) who cared for your patient is attached. Should you wish to access any laboratory results, please call . Should you wish to access any radiology results, please call , option 3. In addition, you can access patient information 24 hours a day, from any computer, through [employer], the online version of our electronic medical record. If you would like to use this service, please call Ana Echols, Connectivity Coordinator, at . We appreciate the opportunity to care for your patients. If you would like additional information, please call the emergency department directly at . Sincerely, Azucena Pal, DO Division of Emergency Medicine [facility], [place] [facility] [place] EMERGENCY DEPARTMENT Provider contact with the patient: 10/07/2012 11:30 Beka Nichols [id number] [facility] EMERGENCY DEPT History Chief Complaint Patient presents with ??? Epistaxis pt has had one everyday for the last three days, one lasting 30-40 mins. pt with hx of liver transplant and low plts. HPI Comments: Beka is a 17 y/o male with a PMH including a liver transplant in 1998 and thrombocytopenia (which is regularly monitored, due to be checked again in 4d). He receives IVIG when his plts get too low. He has never had a blood or plt transfusion. He has a h/o epistaxis but none recently. The first epistaxis episode happened 2d ago - lasted 15 mins, stopped with holding pressure with a tissue. Last night, he had a similar episode - lasted 35 mins, stopped with pressure. He has been coughing up bloody phlegm with these nosebleeds, and when he coughed again at 9:30 AM today while at work, his nose began to bleed again - lasted 15 mins, stopped with pressure. He is not currently bleeding, and he is not bleeding from any other sites and denies blood in stools. He is mildly lightheaded with our blood draw here today, but denies dizziness in the past few days. He has otherwise been feeling like himself - no fever/chills or other systemic sx. He had an episode of petechiae on his arm last week after a dog scratch, but it resolved overnight. Epistaxis The history is provided by the patient and parent. This is a new problem. The current episode started 2 days ago. The problem occurs daily. The problem has not changed since onset.The problem is associated with other (coughing sometimes). The bleeding has been from the right nare. He has tried pressure for the symptoms. There have been no prior injuries to these areas. Past medical history is significant for bleeding disorder. Past medical history is significant for no sinus problems, no nose-picking and no frequent nosebleeds. Past Medical History Diagnosis Date ??? ITP (idiopathic thrombocytopenic purpura) ??? Platelet disorder ??? Hx of liver transplant 1998 ??? 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 ??? Unspecified disorder of liver Past Surgical History Procedure Date ??? Liver transplant 1998 ??? Pr dental surgery procedure 2011 Removal of [place] teeth in dental office under sedation History [...] as needed for Pain. 28 Tab 0 Review of Systems Review of Systems Constitutional: Negative for fever, chills, diaphoresis, activity change and appetite change. HENT: Positive for nosebleeds. Negative for sneezing. Respiratory: Positive for cough. Negative for shortness of breath. Gastrointestinal: Negative for nausea, vomiting, abdominal pain and blood in stool. Skin: Negative for pallor. Neurological: Positive for light-headedness. Hematological: H/o epistaxis but no other bleeding problems BP 114/63 Pulse 70 Temp 98 ??F Resp 20 Wt 120 lb (54.432 kg) Physical Exam Physical Exam Constitutional: He appears well-developed and well-nourished. No distress. HENT: Head: Normocephalic and atraumatic. Right Ear: External ear normal. Left Ear: External ear normal. Nose: Epistaxis is observed. Mouth/Throat: Oropharynx is clear and moist. No oropharyngeal exudate. Eyes: Pupils are equal, round, and reactive to light. Neck: Neck supple. Cardiovascular: Normal rate and regular rhythm. Pulmonary/Chest: Effort normal and breath sounds normal. Abdominal: Soft. Bowel sounds are normal. There is no tenderness. Lymphadenopathy: He has no cervical adenopathy. Neurological: He is alert. Skin: Skin is warm and dry. No rash noted. He is not diaphoretic. No pallor. Procedures Procedures Lab Interpretation WBC:normal,Hemoglobin:normal,Hematocrit:normal, and Platelets:decreased PT:normal,PTT:normal INR: normal Oxygen Saturation Interpretation Progress Notes The patient had two episodes of epistaxis while the ED both stopped with pressure alone. The first lasted for 5-10 minutes, and the second episode lasted about 10 minutes. He denied dizziness or other sx. ED Course Medical Decision Making Clinical Impression Final diagnoses: Thrombocytopenia Epistaxis Patient has h/o thrombocytopenia requiring periodic IVIG treatments. Given the three episodes of epistaxis this week and thrombocytopenia (plts 16 today, plts 79 on 09/27) and per Dr. Rogers's discussion with hematology, IVIG was ordered for the patient while he was in the ED. I recommended he keep his already- scheduled heme/onc appointment for 10/11/12, to have his platelet level re-checked. Patient is to follow up sooner if he has any concerns, if his epistaxis worsens, if new bleeding sites develop, or if any new problems arise. Mom and patient voiced understanding. [facility] * Parish Rogers MD - 10/07/2012 11:20 AM CST Provider contact with the patient: 10/07/2012 11:20 Beka Nichols [id number] [facility] EMERGENCY DEPT History Chief Complaint Patient presents with ??? Epistaxis pt has had one everyday for the last three days, one lasting 30-40 mins. pt with hx of liver transplant and low plts. I have read the resident/BREWMASTER history. Unless appended by me below, I agree with findings as documented. HPI Comments: S/P liver transplant 1998 History of recurrent thrombocytopenia requiring tx with IVIG infusions but usually no significant bleeding Several episodes of epistaxis over the last 3 days No other bleeding sites Review of Systems Review of Systems BP 114/63 Pulse 70 Temp 98 ??F Resp 20 Wt 120 lb (54.432 kg) Physical Exam I have reviewed the resident/BREWMASTER physical exam. Unless appended by me below, I agree with the PE as documented. Physical Exam Nursing note and vitals reviewed. Constitutional: He appears well-developed and well-nourished. No distress. HENT: No active bleeding but fresh blood noted on the septum. Skin: No pallor. Procedures Procedures Progress Notes ED Course Medical Decision Making I have reviewed the: Nursing Notes and Vitals. I have interpreted the following results: Labs. Other: Hematology. Plt count 16 H/H, WBC OK Discussed with hematology. Will infuse IVIG - 1gm/kg I have personally seen and examined this patient. I have fully participated in the care of this patient. I have reviewed all pertinent clinical information available to me during this encounter, including history, physical exam and plan. I have reviewed nursing notes, available labs and radiographic studies. 1530 Pt signed out to Dr. Oliveira with infusion in progress. Clinical Impression Final diagnoses: Thrombocytopenia Epistaxis [facility] * Yenny Michaels, RN - 10/07/2012 10:48 AM CST Introduced self to family at this time. No nosebleed noted at this time. Pt is alert and denies anyneeds at this time. [facility] * Astrid Ahn RN - 10/07/2012 10:34 AM CSTBed:1
Expected date:
Expected time:
Means of arrival:
Comments:
[facility] documented in this encounter Miscellaneous Notes * Miscellaneous Scans - Document, Scanned - 11/23/2012 11:49 PM CST [facility] documented in this encounter Plan of Treatment Not on file documented as of this encounter Procedures Procedure Name Priority Date/Time Associated Diagnosis Comments PT PTT PANEL STAT 10/07/2012 12:29 PM [facility] CBC W AUTO DIFFERENTIAL STAT 10/07/2012 11:27 AM [facility] DIFFERENTIAL MANUAL STAT 10/07/2012 1 1:27 AM [facility] documented in this encounter Results * PT PTT PANEL (10/07/2012 12:29 PM [facility]) PT 12.3 12.2 - 14.5 sec 10/07/2012 1:15 PM [facility] INR 1.0 0.8 - 1.2 10/07/2012 1:15 PM [facility] PTT 26.0 25.1 - 36.5 sec 10/07/2012 1:15 PM [facility] Blood specimen (specimen) BLOOD SPECIMEN / Unknown 10/07/2012 12:29 PM [facility] 10/07/2012 12:32 PM [facility] Parish Rogers MD LAB - COAGULATION OR DERABLES [facility] [address] [place] [address] * (ABNORMAL) CBC W AUTO DIFFERENTIAL (10/07/2012 11:27 AM [facility]) WBC 5.9 4.4 - 10.7 x10^9/L 10/07/2012 11:42 AM [facility] RBC 4.90 3.80 - 5.40 x10^12/L 10/07/2012 11:42 AM [facility] Hemoglobin 15.8 12.0 - 17.6 g/dL 10/07/2012 11:42 AM [facility] Hematocrit 43.2 35.2 - 51.7 % 10/07/2012 11:42 AM [facility] MCV 88.2 80.7 - 98.3 fl 10/07/2012 11:42 AM [facility] MCH 32.2 26.7 - 34.0 pg 10/07/2012 11:42 AM [facility] MCHC 36.6(H) 30.8 - 35.9 gm/dL 10/07/2012 11:42 AM [facility] RDW-CV 12.9 12.1 - 14.9 % 10/07/2012 11:42 AM [facility] Hematology Reflex Status Manual Diff to follow (none) 10/07/2012 11:42 AM [facility] Platelet Count 16(LL) 153 - 416 x10^9/L 10/07/2012 11:42 AM [facility] Blood specimen (specimen) BLOOD SPECIMEN / Unknown 10/07/2012 11:27 AM [facility] 10/07/2012 11:29 AM [facility] Parish Rogers MD LAB - HEMATOLOGY ORD ERABLES [facility] [address] [place] [address] * (ABNORMAL) DIFFERENTIAL MANUAL (10/07/2012 11:27 AM [facility]) WBC Auto 5.9 4.4 - 10.7 X(10)9/L 10/07/2012 11:58 AM [facility] Neutrophil % Manual 65 44 - 73 % 10/07/2012 11:58 AM [facility] Lymphocytes % Manual 18(L) 20 - 43 % 10/07/2012 11:58 AM [facility] Monocytes % Manual 12 5 - 13 % 10/07/2012 11:58 AM [facility] Eosinophils % Manual 1 0 - 6 % 10/07/2012 11:58 AM [facility] Atypical Lymphocyte % Manual 2(H) <=0 % 10/07/2012 11:58 AM [facility] Band % Manual 2 0 - 11 % 10/07/2012 11:58 AM [facility] Cells Counted 100 # cells 10/07/2012 11:58 AM [facility] Platelet Estimation Decreased 10/07/2012 11:58 AM [facility] WBC Morph Normal 10/07/2012 11:58 AM [facility] Anisocytosis Slight 10/07/2012 11:58 AM [facility] Blood specimen (specimen) BLOOD SPECIMEN / Unknown 10/07/2012 11:27 AM [facility] 10/07/2012 11:29 AM [facility] Parish Rogers MD LAB - HEMATOLOGY ORD ERABLES Performing Organization Address City/State/[facility] Co de Phone Number [facility] [address] [place] [address] documented in this encounter Visit Diagnoses Diagnosis Thrombocytopenia (HCC) Thrombocytopenia, unspecified Epistaxis documented in this encounter Administered Medications Inactive Administered Medications - up to 3 most recent administrations Medication Order MAR Action Action Date Dose Rate Site acetaminophen (TYLENOL) tablet 487.5-812.5 mg 487.5-812.5 mg (10-15 mg/kg ? 54.4 kg), Oral, ONCE, 1 dose, On Wed10/07/12 at 1215, Administer one (1) hour prior to IVIG administration. $ Given 10/07/2012 12:26 PM [facility] 650 mg dextrose 5 % infusion at 75 mL/hr, Intravenous, CONTINUOUS, Starting on Wed10/07/12 at 1230, Until Wed10/07/12 at 1922, IVIG maintenance IV Fluid/Flush solution $ New Bag/Syringe 10/07/2012 5:03 PM [facility] 75 mL/hr diphenhydrAMINE (BENADRYL) tablet 50 mg 50 mg, Oral, ONCE, 1 dose, On Wed10/07/12 at 1215, Administer one (1) hour prior to IVIG administration. $ Given 10/07/2012 12:25 PM [facility] 50 mg immune globulin (human) (PRIVIGEN) 10 % infusion 50 g 50 g, Intravenous, CONTINUOUS, Starting on Wed10/07/12 at 1300, Until Wed10/07/12 at 1459, Intravenous, CONTINUOUS for 2 hours, Initiate infusion [...] one half the previous rate. Rate Change 10/07/2012 2:10 PM [facility] 50 g 162 mL/hr $ New Bag/Syringe 10/07/2012 1:55 PM [facility] 50 g 130 mL /hr Rate Change 10/07/2012 1:42 PM [facility] 50 g 97 mL/hr documented in this encounter Active and Recently Administered Medications Times are shown in [facility]. Scheduled Medication Order 10/05/2012 10/06/2012 10/07/2012 acetaminophen (TYLENOL) tablet 487.5-812.5 mg (COMPLETED) 487.5-812.5 mg (10-15 mg/kg ? 54.4 kg), Oral, ONCE, 1 dose, On Wed10/07/12 at 1215, Administer one (1) hour prior to IVIG administration. 1226 ($ Given - Prov ider: Yenny Michaels RN) diphenhydrAMINE (BENADRYL) tablet 50 mg (COMPLETED) 50 mg, Oral, ONCE, 1 dose, On Wed10/07/12 at 1215, Administer one (1) hour prior to IVIG administration. 1225 ($ Given - Prov ider: Yenny Michaels RN) Continuous Medication Order 10/05/2012 10/06/2012 10/07/2012 dextrose 5 % infusion (CANCELED) at 75 mL/hr, Intravenous, CONTINUOUS, Starting on Wed10/07/12 at 1230, Until Wed10/07/12 at 1922, IVIG maintenance IV Fluid/Flush solution 1703 ($ New Bag/Syri nge - Provider: Codi Roberts, SHAILESH)1821 (Stopped - Provider: Codi Roberts RN) immune globulin (human) (PRIVIGEN) 10 % infusion 50 g () 50 g, Intravenous, CONTINUOUS, Starting on Wed10/07/12 at 1300, Until Wed10/07/12 at 1459, Intravenous, CONTINUOUS for 2 hours, Initiate infusion [...] rate at one half the previous rate. 1308 ($ New Bag/Syri nge - Provider: Maria Ines Carrasco RN)1326 (Rate Change - Provider: Yenny Michaels RN)1342 (Rate Change - Provider: Yenny Michaels RN)1355 ($ New Bag/Syringe - Provider: Yenny Michaels RN)1410 (Rate Change - Provider: Yenny Michaels RN)1700 (Stopped - Provider: Codi Roberts RN) documented in this encounter Care Teams Bilingual Customer Service Specialist Relationship Specialty Start Date End Date Vilma Spangler MD [address] [address] PCP - General 01/05/11 documented as of this encounter
--- OUTSIDE RECORDS SUMMARY | 2024-10-28 05:57 | XMS_ITS | Encounter Summary ---
Author Organization [facility] Address [address] [place] [place] [address] Care Team Providers Care Offender Job Retention Specialist Name Role Phone Vilma Spangler MD Primary Care Provider [phone] Reason for Visit * (Routine) - Closed Specialty Diagnoses / Procedures Referred By Sascha t Referred To Contact Pediatric Hematology and Oncology / Oncology-Medical [facility] Philip Chavez MD [address] [place] [phone] Referral ID Status Reason Start Date Expiration Date Visits Re quested Visits Authorized [id number] Closed 08/09/2012 02/05/2013 10 10 Encounter Details Date Type Department Care Team (Late st Contact Info) Description 08/09/2012 7:38 AM CDT - 08/09/2012 11:59 PM CDT Hospital Encounter The [facility] at [address] [address] Philip Chavez MD [address] [place] [phone] Discharge Disposition: Home or Self Care [...] Sign Reading Time Taken Comments Blood Pressure 104/50 08/09/2012 11:25 AM CDT Pulse 76 08/09/2012 11:25 AM CDT Temperature 36.6 ??C (97.8 ??F) 08/09/2012 8:25 AM CD T Respiratory Rate 16 08/09/2012 11:2 5 AM CDT Oxygen Saturation 98% 08/09/2012 8:25 AM CDT Inhaled Oxygen Concentration - - Weight 55.7 kg (122 lb 12.7 oz) 08/09/2012 8:25 AM CDT Height 169.5 cm (5' 6.73 ) 08/09/2012 8:25 AM CD T Body Mass Index 19.39 08/09/2012 8:25 AM CDT documented in this encounter Discharge Instructions * Discharge Instructions* Document, Scanned - 08/09/2012 7:30 PM CDT documented in this encounter Medications [...] Progress Notes * Sherry Rebolledo RN - 08/09/2012 2:29 PM CDT Patient arrived to clinic accompanied by mother for visit and IVIG. Patient triaged and assessed byRN. Patient examined by Dr. Chavez. Peripheral IV placed in right arm 22 gauge. IV flushes and has blood return. Dressing dry and occlusive. Labs drawn. Report given to Elizabeth Mcgrath RN who will be takingover the remainder of the patient's care. * Papo Fuentes RN - 08/09/2012 1:07 PM CDT Report received from Chalres Rebolledo RN and Sixto Fox, RN. Premedications of tylenol and benadryl given PO. 914 - IVIG infusion started and titrated per orders. Pt tolerated well with VSS throughout. 1125- Infusion completed and PIV d/c'd intact. Discharge instructions given to pt to RTC in 6 weeks forvisit, labs, and IVIG. Pt d/c'd home ambulatory with mom and sister. * Philip Chavez MD - 08/09/2012 8:58 AM CDT Hematology/Oncology Progress Note 08/09/2012 Beka Contreras Niharikaaria PCP: Vilma Spangler Diagnosis: Autoimmune Thrombocytopenia/Autoimmune Neutropenia [...] from hypogammaglobulinemia since and requires regular IVIG. Recent massive LAD evaluated for suspected malignancy. Biopsy revealed granulomatous inflammation without malignant elements. LAD has resolved. Currently feeling well. 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 Active. No bleeding or bruising. No Known Allergies Current Outpatient Prescriptions Medication [...] immune globulin (human) (PRIVIGEN) 10 % infusion 28 g 0.5 g/kg Intravenous Continuous Philip Chavez MD ??? diphenhydrAMINE (BENADRYL) tablet 50 mg 50 mg Oral Once Philip Chavez MD ??? acetaminophen (TYLENOL) tablet 650 mg 650 mg Oral Once Philip Chavez MD Review of Systems: [...] at home with parents, sibs. Working at [employer]. 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 Awake and alert. Pleasant Head: No nasal congestion or discharge. Skin: [...] Imaging Studies Recent Results (from the past 800 hour(s)) DIFFERENTIAL MANUAL Collection Time 08/09/12 8:40 AM Component Value Range WBC Auto 5.5 Neutro Manual 64 44-73 (%) Lymph Manual 20 20-43 (%) [place] Manual 10 5-13 (%) Eos Manual 2 0-6 (%) Atyp Lymph Manual 4 Cells Counted 100 Plt Est Sltly decreased WBC Morph Normal Anisocytosis Slight Poikilocytosis Slight CBC W AUTO DIFFERENTIAL Collection Time 08/09/12 8:40 AM Component Value Range WBC 5.5 4.4-10.7 (x10^9/L) RBC 5.13 3.80-5.40 (x10^12/L) Hgb 16.4 12.0-17.6 (g/dL) HCT 44.6 35.2-51.7 (%) MCV 86.9 80.7-98.3 (fl) MCH 32.0 26.7-34.0 (pg) MCHC 36.8 (*) 30.8-35.9 (gm/dL) RDW-CV 12.7 12.1-14.9 (%) MPV 10.9 9.4-12.9 (fl) Hemo Reflex Status Manual Diff to follow Plt Ct 85 (*) 153-416 (x10^9/L) NADINE-BAR VIRUS PCR QUANTITATIVE BLOOD Collection Time 08/09/12 8:40 AM Component Value Range EBV DNA Quant PCR (*) No EBV DNA detected Value: POSITIVE for EBV DNA but below level of accurate quantitation IGG BLOOD Collection Time 08/09/12 8:40 AM Component Value Range IgG 299 [id number] (mg/dL) HEPATIC FUNCTION PANEL Collection Time 08/09/12 8:40 AM Component Value Range Alk Phos 130 39-139 (U/L) ALT/SGPT 53 (*) 6-46 (U/L) AST/SGOT 35 8-42 (U/L) Protein Total 6.6 6.3-8.2 (gm/dL) Albumin 4.2 3.3-4.9 (gm/dL) Bili Total 0.6 0.3-1.2 (mg/dL) Bili Conj Direct 0.25 0.11-0.64 (mg/dL) Assessment 1. 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 Ultimately treated with Rituximab in late 2008. EBV PCR remains positive and now below the level of quantification. No specific symptoms. Counts remain OK. Normal WBC and Hb. Matilde telet count modestly decreased over the last couple months. Not progressively worsened. 2. Immune suppression: Patient on chronic tacrolimus for liver transplant. 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 IVIG regularly and likely retirement. Plan 1. Counts, LFT panel, EBV PCR, IgG 2. RTC in 6 weeks for next IVIG infusion -Repeat counts, IgG, chemistries, EBV PCR at that time 3. IVIG given today 0.5 g/kg. documented in this encounter Miscellaneous Notes * Miscellaneous Scans - Document, Scanned - 09/09/2012 8:40 AM CST P TESTER documented in this encounter Plan of Treatment Not on file documented as of this encounter Procedures Procedure Name Priority Date/Time Associated Diagnosis Comments NADINE-DE LA CRUZ VIRUS PCR QUANT BLOOD/CSF Routine 08/09/2012 8:40 AM CDT Neutropenia associated with autoimmune disease (HCC) CBC W AUTO DIFFERENTIAL ZAHRA 08/09/2012 8:40 AM CDT Neutropenia associated with autoimmune disease (HCC) HEPATIC FUNCTION PANEL Routine 08/09/2012 8:40 AM CDT Neutropenia associated with autoimmune disease (HCC) IGG BLOOD ZAHRA 08/09/2012 8:40 AM CDT Neutropenia associated with autoimmune disease (HCC) DIFFERENTIAL MANUAL Routine 08/09/2012 8 :40 AM CDT Neutropenia associated with autoimmune disease (HCC) documented in this encounter Results * (ABNORMAL) HEPATIC FUNCTION PANEL (08/09/2012 8:40 AM CDT) Alkaline Phosphatase 130 39 - 139 U/L 08/09/2012 9:37 AM CDT [facility] ALT 53(H) 6 - 46 U/L 08/09/2012 9:37 AM T [facility] AST 35 8 - 42 U/L 08/09/2012 9:37 AM T [facility] Protein Total 6.6 6.3 - 8.2 gm/dL 08/09/2012 9:37 AM T [facility] Albumin 4.2 3.3 - 4.9 gm/dL 08/09/2012 9:37 AM T [facility] Bilirubin Total 0.6 0.3 - 1.2 mg/dL 08/09/2012 9:37 AM T [facility] Bilirubin Direct 0.25 0.11 - 0.64 mg/dL 08/09/2012 9:37 AM [facility] Blood specimen (specimen) BLOOD SPECIMEN / Unknown 08/09/2012 8:40 AM CDT 08/09/2012 8:53 AM CDT Philip Chavez MD LAB - CHEMISTRY O RDERAVERN Performing Organization Address [facility] Co de Phone Number [facility] [address] [place] [phone] * IGG BLOOD (08/09/2012 8:40 AM CDT) [facility] IgG 707 540 - 1,822 mg/dL 08/09/2012 9:37 AM CDT [facility] Blood specimen (specimen) BLOOD SPECIMEN / Unknown 08/09/2012 8:40 AM CDT 08/09/2012 8:53 AM CDT Philip Chavez MD LAB - CHEMISTRY O SARAH Performing Organization Address [facility] de Phone Number [facility] [address] [place] [address] * (ABNORMAL) NADINE-BAR VIRUS PCR QUANTITATIVE BLOOD (08/09/2012 8:40 AM CDT) [facility] Nadine-De La Cruz Virus DNA PCR Quantitative POSITIVE for EBV DNA but below level of accurate quantitatio n(A) No EBV DNA detected 08/10/2012 7:23 AM CDT [facility] Blood specimen (specimen) BLOOD SPECIMEN / Unknown 08/09/2012 8:40 AM CDT 08/09/2012 8:54 AM CDT Narrative [facility] - 08/10/2012 7:23 AM CDT This assay has a lower [...] ??EBV levels can vary by ??specimen type: [facility] uses whole blood which is more [...] - MICROBIOLOG Y ORDERABLES Performing Organization Address City/State/[facility] de Phone Number [facility] [address] [facility] [place] [place] [address] * (ABNORMAL) CBC W AUTO DIFFERENTIAL (08/09/2012 8:40 AM CDT) Pathologist [facility] WBC 5.5 4.4 - 10.7 x10^9/L 08/09/2012 10:49 AM CDT [facility] RBC 5.13 3.80 - 5.40 x10^12/L 08/09/2012 10:49 AM T [facility] Hemoglobin 16.4 12.0 - 17.6 g/dL 08/09/2012 10:49 AM T [facility] Hematocrit 44.6 35.2 - 51.7 % 08/09/2012 10:49 AM T [facility] MCV 86.9 80.7 - 98.3 fl 08/09/2012 10:49 AM T [facility] MCH 32.0 26.7 - 34.0 pg 08/09/2012 10:49 AM [facility] MCHC 36.8(H) 30.8 - 35.9 gm/dL 08/09/2012 10:49 AM [facility] RDW-CV 12.7 12.1 - 14.9 % 08/09/2012 10:49 AM T [facility] MPV 10.9 9.4 - 12.9 fl 08/09/2012 10:49 AM T [facility] Hematology Reflex Status Manual Diff to follow 08/09/2012 10:49 AM [facility] Platelet Count 85(L) 153 - 416 x10^9/L 08/09/2012 10:49 AM T [facility] Blood specimen (specimen) BLOOD SPECIMEN / Unknown 08/09/2012 8:40 AM CDT 08/09/2012 8:53 AM CDT Philip Chavez MD LAB - HEMATOLOGY ORDERABLES Performing Organization Address City/State/[facility] Co de Phone Number [facility] [place] [address] * DIFFERENTIAL MANUAL (08/09/2012 8:40 AM CDT) WBC Auto 5.5 X(10)9/L 08/09/2012 10:49 AM [facility] Neutrophil % Manual 64 44 - 73 % 08/09/2012 10:49 AM [facility] Lymphocytes % Manual 20 20 - 43 % 08/09/2012 10:49 AM [facility] Monocytes % Manual 10 5 - 13 % 2011 10:49 AM [facility] Eosinophils % Manual 2 0 - 6 % 08/09/2012 10:49 AM [facility] Atypical Lymphocyte % Manual 4 % 08/09/2012 10:49 AM [facility] Cells Counted 100 # cells 08/09/2012 10:49 AM [facility] Platelet Estimation Sltly decreased 08/09/2012 10:49 AM [facility] WBC Morph Normal 08/09/2012 10:49 AM [facility] Anisocytosis Slight 08/09/2012 10:49 AM [facility] Poikilocytosis Slight 08/09/2012 10:49 AM [facility] Blood specimen (specimen) BLOOD SPECIMEN / Unknown 08/09/2012 8:40 AM CDT 08/09/2012 8:53 AM CDT Philip Chavez MD LAB - HEMATOLOGY ORDERABLES [facility] [address] [facility] [place] [address] documented in this encounter Visit Diagnoses Diagnosis Neutropenia associated with autoimmune disease (HCC) Other neutropenia Hypogammaglobulinemia (HCC) Hypogammaglobulinaemia, unspecified documented in this encounter Administered Medications Inactive Administered Medications - up to 3 most recent administrations Medication Order MAR Action Action Date Dose Rate Site acetaminophen (TYLENOL) tablet 650 mg 650 mg, Oral, ONCE, 1 dose, On Wed08/09/12 at 0745, Administer one (1) hour prior to IVIG administration. $ Given 08/09/2012 9:15 AM CDT 650 mg diphenhydrAMINE (BENADRYL) tablet 50 mg 50 mg, Oral, ONCE, 1 dose, On Wed08/09/12 at 0745, Administer one (1) hour prior to IVIG administration. $ Given 08/09/2012 9:15 AM CDT 50 mg immune globulin (human) (PRIVIGEN) 10 % infusion 28 g 28 g (0.5 g/kg ? 55.5 kg), Intravenous, CONTINUOUS, Starting on Wed08/09/12 at 1100, Until Wed08/09/12 at 1259, Intravenous, CONTINUOUS for 2 hours, [...] half the previous rate. $ New Bag/Syringe 08/09/2012 9:15 AM CDT 28 g 33 mL/hr documented in this encounter Care Teams Offender Job Retention Specialist Relationship Specialty Start Date End Date Vilma Spangler MD [address] [place] [address] PCP - General 01/05/11 documented as of this encounter
--- OUTSIDE RECORDS SUMMARY | 2024-10-28 05:57 | XMS_ITS | Encounter Summary ---
Author Organization [facility] Address [address] [facility] [place] [address] Care Team Providers Care Torch Shearer Name Role Phone Vilma Spangler MD Primary Care Provider [phone] Reason for Visit * Reason Comments Scheduling Encounter Details Date Type Department Care Team (Late st Contact Info) Description 11/07/2012 Telephone [facility] at [address] [address] Sherry Rebolledo RN Scheduling Social History Tobacco [...] Telephone Encounter - Sherry Rebolledo RN - 11/07/2012 6:40 PM CST Patient had labs drawn over weekend. Patient's plt 46K. Notified Dr. Chavez who stated that we will infuse IVIG just prior to surgery. Gave mother instructions. Mother stated that they were still waiting for surgery to get back with them with a date for surgery. Called and left a message with Roselia Fung's care team coordinator scheduler. Patient's mother also stated that the patient has had small raised, red bumps on back, neck, and chest. The patient stated he had bloody drainage from one bump. Notified Dr. Chavez who stated to just monitor them and that it probably was acne. Notified mother that we would contact her once we know the date of surgery. 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
--- OUTSIDE RECORDS SUMMARY | 2024-10-28 05:57 | XMS_ITS | Encounter Summary ---
Author Organization [facility] Address [address] [place] [address] Care Team Providers Care Transportation Aide Name Role Phone Vilma Spangler MD Primary Care Provider [phone] Reason for Visit * Reason Onset Date Comments Medication Issue 04/20/2012 Encounter Details Date Type Department Care Team (Late st Contact Info) Description 04/20/2012 Telephone [facility] - Transplant Services [address] [place] [id number] Niurka Gutierrez RN Medication Issue Social History Tobacco Use Types Packs/Day Years [...] encounter Miscellaneous Notes * Telephone Encounter - Niurka Gutierrez RN - 04/20/2012 1:34 PM CDT Mom called an stated they would like to change Beka's prograf prescription to [facility] [place] to see if it is any cheaper there. Spoke to the pharmacist, he will work with mom and see if they can help them out. Also informed mom of Beka's lab results. No changes at this time. Will plan to repeat liver labs in 3 months. Mom verbalized an understanding. documented in this encounter Plan of Treatment Not on file documented as of this encounter Visit Diagnoses Not on filedocumented in this encounter Care Teams Transportation Aide Relationship Specialty Start Date End Date Vilma Spangler MD [address] [place] [address] PCP - General 01/05/11 documented as of this encounter
--- OUTSIDE RECORDS SUMMARY | 2024-10-28 05:57 | XMS_ITS | Encounter Summary ---
Author Organization [facility] Address [address] [place], [place] [address] [address] Care Team Providers Care Brokerage Manager Name Role Phone Vilma Spangler MD Primary Care Provider [phone] Reason for Visit * Reason Comments Mass on left side of face Encounter Details Date Type Department Care Team (Latest Contact Info) Description 03/15/2012 10:25 AM CDT - 03/15/2012 11:59 PM CDT Hospital Encounter [facility] - ENT [address] [place] [id number] Silverio Rivas MD [address] [place] [phone] Discharge Disposition: Home or Self Care Social [...] - Inhaled Oxygen Concentration - - Weight 53.3 kg (117 lb 6.4 oz) 03/15/2012 10:54 AM CDT Height 173.2 cm (5' 8.19 ) 03/15/2012 10:54 AM C DT Body Mass Index 17.75 03/15/2012 10:54 AM CDT documented in this encounter Medications [...] encounter Progress Notes * Silverio Rivas - 03/15/2012 10:59 AM CDT Primary Care Physician: Vilma Spangler MD Chief Complaint Patient presents with ??? Mass on left side of face History of Present Illness: Beka is a 17 y.o. male who is referred to ENT from Dr. Chavez for persistent left cervical lymphadenopathy. His hx includes a recent facial cellulitis with reactive adenopathy that improved after Cleocin. However the left adenopathy predates this facial infection by 3-4weeks. The left adenopathy has mildly fluctuated in size. Dr. Pritchett has several diagnostic tests still pending. There is no hx of cat / insect/ tick / julian contact. Past medical history: Previous Childhood Illnesses: Past Medical History Diagnosis Date ??? ITP (idiopathic thrombocytopenic purpura) ??? Platelet disorder ??? Hx of liver transplant 1998 ??? 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 Hospitalizations? As above Previous Surgery? Yes- liver transplant; BMT Medications: Current outpatient prescriptions:tacrolimus (PROGRAF) 1 MG capsule, Take 1 Cap by mouth 2 times daily., Disp: 60 Cap, Rfl: 6; clindamycin (CLEOCIN) 300 MG capsule, Take 1 Cap by mouth 3 times daily for 9 days., Disp: 27 Cap, Rfl: 0 No current facility-administered medications for this encounter. Facility-Administered Medications Ordered in Other Encounters: tuberculin PPD (TUBERSOL) injection 0.1 mL, 0.1 mL, Intradermal, Once, Philip Chavez MD, 0.1 mL at 03/15/12 0945; lynda albicans skin test (CANDIN) injection 0.1 mL, 0.1 mL, Intradermal, Once, Philip Chavez MD, 0.1 mL at03/15/12 0945 Allergies: Review of patient's allergies indicates no known allergies. Immunizations: are up to date Growth and development: Age appropriate yes Social history: Lives with biological parents, 2 siblings. Anyone smoking inside the house? No. Beka is finished with school. Family history: Hearing loss No. Surgical or anesthesia complications No Review of systems: Constitutional: child is weight appropriate Eyes: does not have double vision Ears, Nose, Mouth, Throat: no tonsillitis or strep throat; occasional URI's Cardiovascular: does not have heart disease Respiratory: does not have asthma or wheezing Gastointestinal: Negative Genitourinary: negative Integumentary: has had no rash or eczema Neurological: has had no seizures; negative for ADD / ADHD Endocrine: does not have a history of thyroid problems Hematologic: does not bruise easily Physical Exam: Height: 173.2 cm (5' 8.19 ) Weight: 53.252 kg (117 lb 6.4 oz) Body mass index is 17.75 kg/(m^2). Constitutional: no retractions or cyanosis Head and Face: no masses; facies symmetrical; there is a healing 4 mm infection site in the right pre-sideburn area. Eyes: sclera and conjunctiva clear Ears: Inspection: normal pinnae shape and position External canal: normal bilaterally Tympanic membrane: Right ear: intact with normal but sclerotic appearance Left ear: intact with normal sclerotic appearance Nasal: normal external nose, mucous membranes and septum Oral Cavity: moist mucous membranes; normal uvula, palate and tongue size. Normal saliva from the Sandy's ducts Throat: tonsils 2+ Neck: Left post auricular and left level 2 adenopathy is noted. There is a bilobed mass in the leftsubmandibular triangle that is mostly deep to the mandible. Bimanual palpation suggests the mass isthe submandibular salivary gland. Cranial Nerve Exam: grossly intact; CN VII symmetrical Respiration: unlabored breathing ASSESSMENT: 1. Left neck submandibular mass and lymphadenopathy in an immunocompromised post liver transplant patient without sxs of fever, toxicity, etc. PLAN: 1. Neck CT with contrast 2. RTC one week 3. Unsure is FNA or open excisional bx will be necessary documented in this encounter Miscellaneous Notes * Miscellaneous Scans - Document, Scanned - 06/20/2012 10:45 AM CDT documented in this encounter Plan of Treatment Not on file documented as of this encounter Visit Diagnoses Diagnosis Lymphadenopathy Enlargement of lymph nodes documented in this encounter Care Teams Brokerage Manager Relationship Specialty Start Date End Date Vilma Spangler MD [address] [address] PCP - General 01/05/11 documented as of this encounter
--- OUTSIDE RECORDS SUMMARY | 2024-10-28 05:58 | XMS_ITS | Encounter Summary ---
Author Organization [facility] Address [address] [place] [address] Care Team Providers Care Extractions Technologist Name Role Phone Philip Gomez MD Primary Care Provider Encounter Details Date Type Department Care Team (Late st Contact Info) Description 11/18/2009 12:01 AM COSMETICS SUPERVISOR - 11/18/2009 11:59 PM COSMETICS SUPERVISOR Hospital Encounter CG DEFAULT [address] [place] [phone] Philip Chavez MD [address] [place] [phone] Hematology Discharge Disposition: Home or Self Care Social History Tobacco Use Types Packs/Day Years Used Date Smoking Tobacco: Never Assessed Sex and Gender Information Value Date Recorded Sex Assigned at Not on file Gender Identity Not on file Sexual Orientation Not on file documented as of this encounter Plan of Treatment Not on file documented as of this encounter Procedures Procedure Name Priority Date/Time Associated Diagnosis Comments CULTURE FUNGUS SKIN HAIR NAILS Timed 11/18/2009 10:00 AM COSMETICS SUPERVISOR Immune Thrombocyt Purpra JOSE-DE LA CRUZ VIRUS PCR QUANT BLOOD/CSF Timed 11/18/2009 9:40 AM COSMETICS SUPERVISOR Immune Thrombocyt Purpra CBC W MANUAL DIFFERENTIAL Timed 11/18/2009 9:40 AM COSMETICS SUPERVISOR Immune Thrombocyt Purpra COMPREHENSIVE METABOLIC PANEL Timed 11/18/2009 9:40 AM COSMETICS SUPERVISOR Immune Thrombocyt Purpra IGG BLOOD Timed 11/18/2009 9:40 AM COSMETICS SUPERVISOR Immune Thrombocyt Purpra documented in this encounter Results * CULTURE FUNGUS SKIN HAIR NAILS (11/18/2009 10:00 AM COSMETICS SUPERVISOR) Report [facility] Comment:Final - CULTURE * No Fungal Growth ENTIRE SCALP / Unknown 11/18/2009 10:00 AM COSMETICS SUPERVISOR Philip Chavez MD LAB - MICROBIOLOG Y ORDERABLES [facility] * JOSE-BAR VIRUS DNA MARCE REAL-TIME PCR (11/18/2009 9:40 AM COSMETICS SUPERVISOR) Jose-De La Cruz Virus DNA PCR Quantitative NO EBV DNA detected NO EBV DNA detected Copies/mL [facility] Comment EBV PCR CARD INAL [facility] Comment: This assay has a lower limit [...] comparable. ??EBV levels can vary by speimen typeF [facility] uses whole blood which is more [...] effect of theraputic interventions to decrease EBV levelsS levels should decline with successful intervention. This test was developed and its characteristics determined by the [facility] of [facility]. ??It has not been cleared [...] clinical laboratory testing. BLOOD SPECIMEN / Unknown 11/18/2009 9:40 AM COSMETICS SUPERVISOR Philip Chavez MD LAB - MICROBIOLOG Y ORDERABLES [facility] * IGG BLOOD (11/18/2009 9:40 AM COSMETICS SUPERVISOR) IgG [id number] - 1349 mg/dl [facility] BLOOD SPECIMEN / Unknown 11/18/2009 9:40 AM COSMETICS SUPERVISOR Philip Chavez MD LAB - CHEMISTRY O RDERABLES [facility] * (ABNORMAL) COMPREHENSIVE METABOLIC PANEL (11/18/2009 9:40 AM COSMETICS SUPERVISOR) Sodium 141 137 - 145 mmol/L [facility] Potassium 4.2 3.5 - 5.1 mmol/L [facility] Chloride 106 98 - 107 mmol/L [facility] CO2 26.6 18 - 27 mmol/L [facility] Glucose 81 70 - 106 mg/dl [facility] BUN 12.5 8 - 21 mg/dl [facility] Calcium 9.2 8.9 - 10.7 mg/dl [facility] Bilirubin Total 0.4(L) 0.6 - 1.4 mg/dl [facility] Protein Total 6.5 6.3 - 8.6 gm/dl [facility] Albumin 4.4 3.7 - 5.6 gm/dl [facility] ALT 20 10 - 40 Units/L [facility] AST 33 10 - 45 Units/L [facility] Alkaline Phosphatase 123 65 - 260 Units/L [facility] Creatinine 1.11(H) 0.50 - 1.06 mg/dl [facility] Specimen Type/[facility] / Unknown 11/18/2009 9:40 AM COSMETICS SUPERVISOR Philip Chavez MD LAB - CHEMISTRY O RDERABLES [facility] * (ABNORMAL) CBC W MANUAL DIFFERENTIAL (11/18/2009 9:40 AM COSMETICS SUPERVISOR) WBC 4.46(L) 4.5 - 14.5 K/cumm [facility] RBC 4.88 4.50 - 5.30 mill/cumm [facility] Hemoglobin 15.6 13.0 - 16.0 gm/dl [facility] Hematocrit 42.2 37.0 - 49.0 % [facility] MCV 86.5 78.0 - 98.0 cu microns [facility] MCH 32.0 25.0 - 35.0 uug [facility] MCHC 37.0 31.0 - 37.0 % [facility] RDW 12.9 % [facility] MPV 11.1 fl [facility] Platelet Count 194 100 - 400 K/cumm [facility] Comment Manual Diff Done [facility] Neutrophils % Manual 59 24 - 66 % [facility] Lymphocytes % Manual 13(L) 22 - 61 % [facility] Monocytes % Manual 17(H) 3 - 15 % [facility] Eosinophils % Manual 1 0 - 10 % [facility] Atypical Lymphocyte % Manual 10 % [facility] RBC Morphology Slight Anisocytosis, Poikylocytosis [facility] BLOOD SPECIMEN / Unknown 11/18/2009 9:40 AM COSMETICS SUPERVISOR Philip Chavez MD LAB - HEMATOLOGY ORDERABLES Performing Organization Address City/State[facility] Co de Phone Number [facility] documented in this encounter Visit Diagnoses Diagnosis Immune thrombocyt purpra Immune thrombocytopenic purpura documented in this encounter Care Teams Extractions Technologist Relationship Specialty Start Date End Date Philip Gomez MD [address] [place] [address] PCP - General 11/15/09 07/09/10 documented as of this encounter
--- OUTSIDE RECORDS SUMMARY | 2024-10-28 05:58 | XMS_ITS | Encounter Summary ---
Author Organization [facility] Address [address] [place] [address] Care Team Providers Care Shell Grader Name Role Phone Philip Gomez MD Primary Care Provider Vilma Spangler MD Primary Care Provider [phone] Philip Gomez MD Primary Care Provider Vilma Spangler MD Primary Care Provider [phone] Encounter Details Date Type Department Care Team (Late st Contact [facility]) Description 06/04/2009 Orders Only [facility] - Laboratory [address] [place] [id number] ProviderDl MD Social History Tobacco Use Types Packs/Day Years Used Date Smoking Tobacco: Never Assessed Sex and Gender Information Value Date Recorded Sex Assigned at Not on file Gender Identity Not on file Sexual Orientation Not on file documented as of this encounter Plan of Treatment Not on file documented as of this encounter Procedures Procedure Name Priority Date/Time Associated Diagnosis Comments BONE MARROW BIOPSY [facility] 06/04/2009 1: 10 PM CDT documented in this encounter Results * BONE MARROW BIOPSY (06/04/2009 1:10 PM CDT) Result CASE NUMBER [id number] [facility] LAB PATH REPORT Comment: ORDERING PHYSICIAN ??PH[place]IP HAM SPECIMEN TYPE ?Aspir / Biopsy CLINICAL [...] and interpreted by the attending (teaching) pathologist. Heat Treating Operator ? Brendon Vega PATHOLOGIST ?Alejandro [place] M.D. ELECTRONICALLY BREEZY Alejandro Bay MISCELLANEOUS SAMPLES / Unknown 06/04/2009 1:10 PM CDT 06/04/2009 1:36 PM CDT Historical Provider LAB - PATHOLOGY/C YTOLOGY ORDERABLES [facility] LAB PATH REPORT documented in this encounter Visit Diagnoses Not on filedocumented in this encounter Care Teams Shell Grader Relationship Specialty Start Date End Date Philip Gomez MD [address] [place] [address] PCP - General 11/15/09 07/09/10 Vilma Spangler MD [address] [address] PCP - General 07/10/10 08/10/10 Philip Gomez MD [address] [place] [address] PCP - General 08/11/10 01/04/11 Vilma Spangler MD [address] [address] PCP - General 01/05/11 documented as of this encounter
--- OUTSIDE RECORDS SUMMARY | 2024-10-28 05:58 | XMS_ITS | Encounter Summary ---
Author Organization [facility] Address [address] [place] [address] Care Team Providers Care Geophysical Prospector Name Role Phone Philip Gomez MD Primary Care Provider Encounter Details Date Type Department Care Team (Latest Contact Info) Description 04/15/2010 7:45 AM CDT - 04/15/2010 11:59 PM CDT Hospital Encounter [facility] at [address] [phone] Discharge Disposition: Home or Self Care Social History Tobacco Use Types Packs/Day Years Used Date Smoking Tobacco: Never Alcohol Use Standard Drinks/Week Comments No 0 (1 standard drink = 0.6 oz pur e alcohol) Sex and Gender Information Value Date Recorded Sex Assigned at Not on file Gender Identity Not on file Sexual Orientation Not on file documented as of this encounter Last Filed Vital Signs Vital Sign Reading Time Taken Comments Blood Pressure 120/90 04/15/2010 8:00 AM CDT Pulse 60 04/15/2010 8:00 AM CDT Temperature 36 ??C (96.8 ??F) 04/15/2010 8:00 AM CDT Respiratory Rate 16 04/15/2010 8:00 AM CDT Oxygen Saturation 98% 04/15/2010 8:00 AM CDT Inhaled Oxygen Concentration - - Weight 54 kg (119 lb 0.8 oz) 04/15/2010 8:00 AM CDT Height 168.5 cm (5' 6.34 ) 04/15/2010 8:00 AM CD T Body Mass Index 19.02 04/15/2010 8:00 AM CDT Body Mass Index Percentile 16.49% 04/15/2010 8:0 0 AM CDT Growth Chart: CDC (Boys, 2-2 0 Years) documented in this encounter Discharge Instructions * Patient Instructions* Lisandra Simmons RN - 04/15/2010 10:29 AM CDT Please call prior to your arrival so that we can have your medications waiting for you * Discharge Instructions* Document, Scanned - 04/08/2011 8:01 AM CDT * Document, Scanned - 04/15/2010 12:00 AM CDT documented in this encounter Medications at Time of Discharge Medication Sig Dispensed Refills Start Date End Date tacrolimus (PROGRAF) 1 MG capsule Take 1 mg by mouth 2 times daily. 03/14/2012 documented as of this encounter Progress Notes * Lisandra Simmons RN - 04/15/2010 3:03 PM CDT Pt here for scheduled IVIG infusion. Pt triaged and assessed by RN. #[id number] Insyte started to left AC without problems, blood obtained from IV and sent to lab. IV flushes well and blood return noted. Pt premedicated with benadryl and tylenol. IVIG infusion complete without problems. Vital signs stable throughout infusion. IV removed post infusion. Discharge instructions given to patient and mother. Pt sent home with family and instructed to return in 4 weeks for IVIG. documented in this encounter Miscellaneous Notes * Miscellaneous Scans - Document, Scanned - 04/15/2010 12:00 AM CDT documented in this encounter Plan of Treatment Not on file documented as of this encounter Procedures Procedure Name Priority Date/Time Associated Diagnosis Comments FLOW CYTOMETRY NEUTROPHIL ASSOCIATED AB Routine 04/15/2010 8:20 AM CDT Neutropenia Associated with Autoimmune Disease (HCC) PLATELET ASSOCIATED ANTIBODY DIRECT PANEL Routine 04/15/2010 8:20 AM CDT Neutropenia Associated with Autoimmune Disease (HCC) CBC W MANUAL DIFFERENTIAL Timed 04/15/2010 8:20 AM CDT Neutropenia Associated with Autoimmune Disease (HCC) Hypogammaglobulinem NOS IGG BLOOD Timed 04/15/2010 8:20 AM CDT Hypogammaglobulinem ia (HCC) documented in this encounter Results * PLATELET ASSOCIATED ANTIBODY DIRECT PANEL (04/15/2010 8:20 AM CDT) Platelet Associated Antibody IgG Direct Negative Negative [facility] Platelet Associated Antibody IgM Direct Negative Negative [facility] Comment Ref Lab CARD INAL [facility] Comment: INTERPRETATION: Platelet Assoc Antibodies, Direct Assay [...] developed and its performance characteristics determined by [facility]. It has not been cleared or approved by the U.S. Food and Drug Administration. This test should not be regarded as investigational or for research use. BLOOD SPECIMEN / Unknown 04/15/2010 8:20 AM CDT 04/15/2010 8:31 AM CDT Narrative Resulting Agency Comment Performed By [facility] ? [address] ? [place], [place] [address] Philip Chavez MD LAB - CHEMISTRY O RDERABLES [facility] * NEUTROPHIL ASSOCIATED ANTIBODIES (04/15/2010 8:20 AM CDT) Neutrophil Associated Antibody Negative Negative [facility] Comment Ref Lab CARD INAL [facility] Comment: TEST INFORMATION: Neutrophil Associated Antibodies Neutrophil-associated antibodies may [...] correlated to clinical history and other data. Analyte Specific Reagents (ASR) are used in many laboratory tests necessary for standard medical care and generally do not require U.S. Food and Drug Administration (FDA)approval or clearance. This test was developed and its performance characteristics determined by [facility]. It has not been approved or cleared by the U.S. Food and Drug Administration. This test should not be regarded as investigational or for research use. BLOOD SPECIMEN / Unknown 04/15/2010 8:20 AM CDT 04/15/2010 8:31 AM CDT Narrative [facility] - 04/22/2010 9:24 AM CDT 1 Resulting Agency Comment Performed By [facility] ? [address] ? [place], [place] [address] Philip Chavez MD LAB - SEROLOGY OR DERABLES Performing Organization Address City/[facility]/ZIP Co de Phone Number [facility] * IGG BLOOD (04/15/2010 8:20 AM CDT) Pathologist [facility] IgG [id number] 639 - 1349 mg/dl [facility] BLOOD SPECIMEN / Unknown 04/15/2010 8:20 AM CDT 04/15/2010 8:31 AM CDT Philip Chavez MD LAB - CHEMISTRY O RDERABLES Performing Organization Address City/[facility]/ZIP Co de Phone Number [facility] * (ABNORMAL) CBC W MANUAL DIFFERENTIAL (04/15/2010 8:20 AM CDT) WBC 6.13 4.5 - 11.0 K/cumm [facility] RBC 5.79(H) 4.50 - 5.30 mill/cumm [facility] Hemoglobin 18.2(H) 13.0 - 16.0 gm/dl [facility] Hematocrit 50.8(H) 37.0 - 49.0 % [facility] MCV 87.7 78.0 - 98.0 cu microns [facility] MCH 31.4 25.0 - 35.0 uug [facility] MCHC 35.8 31.0 - 37.0 % [facility] RDW 12.7 % [facility] MPV 10.5 fl [facility] Platelet Count 254 100 - 400 K/cumm [facility] Comment Manual Diff Done [facility] Neutrophils % Manual 61 31 - 78 % [facility] Lymphocytes % Manual 20 13 - 54 % [facility] Monocytes % Manual 16(H) 4 - 13 % [facility] Eosinophils % Manual 2 0 - 8 % [facility] Atypical Lymphocyte % Manual 1 % [facility] RBC Morphology Slight Anisocytosis, Poikylocytosis [facility] BLOOD SPECIMEN / Unknown 04/15/2010 8:20 AM CDT 04/15/2010 8:31 AM CDT Philip Chavez MD LAB - HEMATOLOGY ORDERABLES [facility] documented in this encounter Visit Diagnoses Diagnosis Hypogammaglobulinemia (HCC) Hypogammaglobulinaemia, unspecified Neutropenia associated with autoimmune disease (HCC) Other neutropenia documented in this encounter Administered Medications Inactive Administered Medications - up to 3 most recent administrations Medication Order MAR Action Action Date Dose Rate Site acetaminophen (TYLENOL) tablet 650 mg 650 mg, Oral, ONCE, 1 dose, On Wed04/15/10 at 0900, Maximum allowable Acetaminophen amount = 4 Grams / 24 hours. $ Given 04/15/2010 8:36 AM CDT 650 mg diphenhydrAMINE (BENADRYL) tablet 50 mg 50 mg, Oral, ONCE, 1 dose, On Wed04/15/10 at 0900 $ Given 04/15/2010 8:37 AM CDT 50 mg immune globulin (human) (GAMMAGARD;GAMUNEX;PRIVIGEN) 10 % infusion 20 g 20 g, Intravenous, ONCE, 1 dose, On Wed04/15/10 at 0900, ~~~~~~AMELIE~~~~~~~~~~~~AMELIE~~~~ ~~ $ Given 04/15/2010 8:37 AM CDT 20 g documented in this encounter Care Teams Geophysical Prospector Relationship Specialty Start Date End Date Philip Gomez MD [address] [place] [address] PCP - General 11/15/09 07/09/10 documented as of this encounter
--- OUTSIDE RECORDS SUMMARY | 2024-10-28 05:58 | XMS_ITS | Encounter Summary ---
Author Organization [facility] Address [address] [place] [address] Care Team Providers Care Screen Examiner Name Role Phone Philip Gomez MD Primary Care Provider Encounter Details Date Type Department Care Team (Latest Contact Info) Description 11/17/2010 7:30 AM LEAD SHIPPER - 11/17/2010 11:59 PM LEAD SHIPPER Hospital Encounter [facility] at [address] [phone] Discharge Disposition: Home or Self Care Social [...] Sign Reading Time Taken Comments Blood Pressure 102/54 11/17/2010 9:42 AM LEAD SHIPPER Pulse 68 11/17/2010 9:42 AM LEAD SHIPPER Temperature 36.1 ??C (97 ??F) 11/17/2010 9:42 AM LEAD SHIPPER Respiratory Rate 18 11/17/2010 9:42 AM LEAD SHIPPER Oxygen Saturation - - Inhaled Oxygen Concentration - - Weight 53.2 kg (117 lb 4.6 oz) 11/17/2010 9:04 A M LEAD SHIPPER Height 169 cm (5' 6.54 ) 11/17/2010 9:04 AM LEAD SHIPPER Body Mass Index 18.63 11/17/2010 9:04 AM LEAD SHIPPER Body Mass Index Percentile 8.81% 11/17/2010 9:0 4 AM LEAD SHIPPER Growth Chart: CDC (Boys, 2-2 0 Years) documented in this encounter Discharge Instructions * Discharge Instructions* Document, Scanned - 11/18/2010 3:08 PM LEAD SHIPPER documented in this encounter Medications at Time of Discharge Medication Sig Dispensed Refills Start Date End Date tacrolimus (PROGRAF) 1 MG capsule Take 1 mg by mouth 2 times daily. 03/14/2012 documented as of this encounter Progress Notes * Phliip Chavez MD - 11/17/2010 10:38 AM CST Hematology/Oncology Progress Note 11/17/2010 Beka Nichols PCP: Philip Gomez MD Diagnosis: Autoimmune Neutropenia/Thrombocytopenia, Hypogammaglobulinemia No Known Allergies Current outpatient prescriptions Medication Sig Dispense Refill ??? tacrolimus (PROGRAF) 1 MG capsule Take 1 mg by mouth 2 times daily. Current facility-administered medications Medication Dose Route Frequency Provider Last Rate Last Dose ??? immune globulin (human) (GAMMAGARD;GAMUNEX;PRIVIGEN) 10 % infusion 20 g 20 g Intravenous Once Philip Chavez MD Last Dose: 20 g at 11/17/10 0816 ??? diphenhydrAMINE (BENADRYL) tablet 50 mg 50 mg Oral Once Philip Chavez MD Last Dose: 50 mg at 11/17/10 0758 ??? acetaminophen (TYLENOL) tablet 650 mg 650 mg Oral Once Philip Chavez MD Last Dose: 650 mg at 11/17/10 0758 ??? dextrose 5 % infusion 50 mL 50 mL Intravenous Once Philip Chavez MD Last Dose: 50 mL at 11/17/10 1005 Review of Systems: 1) General Fever: no Wt/appetite change: Appetite OK Other: energy level fine. 2) Hem Bruising: no Other:no 3) Skin Rash: no Other: no 4) ENT Congestion:no Rhinorrhea: no Epistaxis: no Sore Throat: no Change in Hearing: no Earache: no Stomatitis: no 5) Resp/CV Shortness of Breath: no Chest Pain: no Cough:no Palpitation: no Other: no 6) GI Pain: no abdominal pain/discomfort Jaundice: no Nausea: no Vomiting: no Diarrhea: no Constipation: no Other: no 7) Frequency: no Dysuria: no Hematuria: no Other: no 8) Musculo-skeletal Pain: no Swelling/Edema: no Change in ROM: no Cyanosis: no Other: achiness 9) Neuro Headache: no Weakness: no Neuralgia: no Vertigo: no Seizure: no Other: no 10) Psych School Grade Behavior: no Other: no 11) Allergy/Immun no 12) Pain no 13) Nutritional Status good Interval History Doing well. No issues with energy level. Appetite good. No fevers. No bruising. No bleeding. Planning on going to [place] this coming fall. Past Medical History: unchanged Family Medical History: unchanged Physical Exam Constitutional: BP 102/54 Pulse 68 Temp 97 ??F Resp 18 Ht 1.69 m (5' 6.54 ) Wt 53.2 kg (117 lb 4.6 oz) BSA (Calculated): 1.58 General Appearance: Awake and alert. NAD. Head: No nasal congestion or discharge Skin: no rashes, bruises, or petechiae Eyes: anicteric: Chest: Normal respiratory effort. No distress Heart: no cyanosis Abdomen: soft, flat. Genitalia: deferred Extremities: without clubbing or edema. FROM Neuro: nonfocal Lab and/or Imaging Studies Recent Results (from the past 72 hour(s)) CBC W MANUAL DIFFERENTIAL Collection Time 11/17/10 7:30 AM Component Value Range ??? WBC 4.81 4.5 - 11.0 (K/cumm) ??? RBC 5.30 4.50 - 5.30 (mill/cumm) ??? Hgb 16.9 (*) 13.0 - 16.0 (gm/dl) ??? Hct 47.8 37.0 - 49.0 (%) ??? MCV 90.2 78.0 - 98.0 (cu microns) ??? MCH 31.9 25.0 - 35.0 (uug) ??? MCHC 35.4 31.0 - 37.0 (%) ??? RDW 12.4 (%) ??? MPV 10.1 (fl) ??? Plt Ct K/CUMM 199 100 - 400 (K/cumm) ??? Manual Diff Comment Done ??? Seg Manual 62 31 - 78 (%) ??? Lymph Manual 23 13 - 54 (%) ??? Yates Manual 7 4 - 13 (%) ??? Eos Manual 2 0 - 8 (%) ??? Atyp Lymph Manual 6 (%) ??? RBC Morph Value: Slight Anisocytosis, Poikylocytosis, Few Stomatocytes IGG BLOOD Collection Time 11/17/10 7:30 AM Component Value Range ??? IgG 730 639 - 1349 (mg/dl) COMPREHENSIVE METABOLIC PANEL Collection Time 11/17/10 7:30 AM Component Value Range ??? Sodium 143 137 - 145 (mmol/L) ??? Potassium 4.0 3.5 - 5.1 (mmol/L) ??? Chloride 104 98 - 107 (mmol/L) ??? CO2 30.7 (*) 22 - 30 (mmol/L) ??? Glucose 76 70 - 106 (mg/dl) ??? BUN 16.4 8 - 21 (mg/dl) ??? Calcium 9.5 8.9 - 10.7 (mg/dl) ??? Bili Total 0.5 (*) 0.6 - 1.4 (mg/dl) ??? Protein Total 7.4 6.3 - 8.6 (gm/dl) ??? Albumin 4.5 3.7 - 5.6 (gm/dl) ??? ALT/SGPT 48 (*) 10 - 40 (Units/L) ??? AST/SGOT 39 10 - 45 (Units/L) ??? Alk Phos 102 65 - 260 (Units/L) ??? Creatinine 0.88 0.50 - 1.06 (mg/dl) Assessment 1. Hypogammaglobulinemia: Symptomatically improved since IVIG replacement restarted. 2. 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 Counts great. Clinically stable 3. Liver Transplant: On Tacrolimus 4. Polycythemia: Hb stable and consistently less than 18 for some time. Plan 1. IVIG 400 mg/kg today. Premed with Tylenol and Benadryl 2. Continue Tacrolimus 3. Repeat counts and IgG in 4 weeks. Follow-Up 4 weeks for IVIG SHIPPER * Dann Robles RN - 11/17/2010 10:10 AM CST Pt arrived in clinic with dad at side. VSS, pt denies complaints. Here for IVIG. PIV inserted into L AC without difficulty, labs obtained. Tylenol and Benadryl given prior to infusion. IVIG started, titrated, and completed per order without issue, VSS throughout, pt denies complaints. Dr. Chavez to examine pt. PIV removed without difficulty, D/c instructions given to dad to RTC in 4 weeks for IVIG, pt left in dad's care ambulatory. SHIPPER documented in this encounter Miscellaneous Notes * Miscellaneous Scans - Document, Scanned - 02/04/2011 7:10 PM CDT documented in this encounter Plan of Treatment Not on file documented as of this encounter Procedures Procedure Name Priority Date/Time Associated Diagnosis Comments CBC W MANUAL DIFFERENTIAL Timed 11/17/2010 7:30 AM LEAD SHIPPER Neutropenia associated with autoimmune disease (HCC) COMPREHENSIVE METABOLIC PANEL Timed 11/17/2010 7:30 AM LEAD SHIPPER Neutropenia associated with autoimmune disease (HCC) IGG BLOOD Timed 11/17/2010 7:30 AM LEAD SHIPPER Hypogammaglobuline justine (HCC) documented in this encounter Results * (ABNORMAL) COMPREHENSIVE METABOLIC PANEL (11/17/2010 7:30 AM LEAD SHIPPER) Sodium 143 137 - 145 mmol/L [facility] Potassium 4.0 3.5 - 5.1 mmol/L [facility] Chloride 104 98 - 107 mmol/L [facility] CO2 30.7(H) 22 - 30 mmol/L [facility] Glucose 76 70 - 106 mg/dl [facility] BUN 16.4 8 - 21 mg/dl [facility] Calcium 9.5 8.9 - 10.7 mg/dl [facility] Bilirubin Total 0.5(L) 0.6 - 1.4 mg/dl [facility] Protein Total 7.4 6.3 - 8.6 gm/dl [facility] Albumin 4.5 3.7 - 5.6 gm/dl [facility] ALT 48(H) 10 - 40 Units/L [facility] AST 39 10 - 45 Units/L [facility] Alkaline Phosphatase 102 65 - 260 Units/L [facility] Creatinine 0.88 0.50 - 1.06 mg/dl [facility] BLOOD SPECIMEN / Unknown 11/17/2010 7:30 AM LEAD SHIPPER 11/17/2010 8:04 AM LEAD SHIPPER Philip Chavez MD LAB - CHEMISTRY O RDERAVERN Performing Organization Address [facility] Co de Phone Number [facility] [address] [place] [address] * IGG BLOOD (11/17/2010 7:30 AM LEAD SHIPPER) IgG 730 639 - 1349 mg/dl [facility] BLOOD SPECIMEN / Unknown 11/17/2010 7:30 AM LEAD SHIPPER 11/17/2010 8:04 AM LEAD SHIPPER Philip Chavez MD LAB - CHEMISTRY O RDERABLES Performing Organization Address [facility] de Phone Number [facility] [address] [place] [address] * (ABNORMAL) CBC W MANUAL DIFFERENTIAL (11/17/2010 7:30 AM LEAD SHIPPER) WBC 4.81 4.5 - 11.0 K/cumm [facility] RBC 5.30 4.50 - 5.30 mill/cumm [facility] Hemoglobin 16.9(H) 13.0 - 16.0 gm/dl [facility] Hematocrit 47.8 37.0 - 49.0 % [facility] MCV 90.2 78.0 - 98.0 cu microns [facility] MCH 31.9 25.0 - 35.0 uug [facility] MCHC 35.4 31.0 - 37.0 % [facility] RDW 12.4 % [facility] MPV 10.1 fl [facility] Platelet Count 199 100 - 400 K/cumm [facility] Comment Manual Diff Done [facility] Neutrophils % Manual 62 31 - 78 % [facility] Lymphocytes % Manual 23 13 - 54 % [facility] Monocytes % Manual 7 4 - 13 % [facility] Eosinophils % Manual 2 0 - 8 % [facility] Atypical Lymphocyte % Manual 6 % [facility] RBC Morphology Slight Anisocytosis, Poikylocytosis, Few Stomatocytes [facility] BLOOD SPECIMEN / Unknown 11/17/2010 7:30 AM LEAD SHIPPER 11/17/2010 8:04 AM LEAD SHIPPER Philip Chavez MD LAB - HEMATOLOGY ORDERABLES [facility] [address] [place] [address] documented in this encounter Visit Diagnoses Diagnosis Hypogammaglobulinemia (HCC) Hypogammaglobulinaemia, unspecified Neutropenia associated with autoimmune disease (HCC) Other neutropenia documented in this encounter Administered Medications Inactive Administered Medications - up to 3 most recent administrations Medication Order MAR Action Action Date Dose Rate Site acetaminophen (TYLENOL) tablet 650 mg 650 mg, Oral, ONCE, 1 dose, On Wed11/17/10 at 0745, Maximum allowable Acetaminophen amount = 4 Grams / 24 hours. $ Given 11/17/2010 7:58 AM LEAD SHIPPER 650 mg dextrose 5 % infusion 50 mL 50 mL, at 1-50 mL/hr, Intravenous, ONCE, 1 dose, On Wed11/17/10 at 0800 $ Given 11/17/2010 10:05 AM LEAD SHIPPER 50 mL 50 mL/hr diphenhydrAMINE (BENADRYL) tablet 50 mg 50 mg, Oral, ONCE, 1 dose, On Wed11/17/10 at 0745 $ Given 11/17/2010 7:58 AM LEAD SHIPPER 50 mg immune globulin (human) (GAMMAGARD;GAMUNEX;PRIVIGEN) 10 % infusion 20 g 20 g, Intravenous, ONCE, 1 dose, On Wed11/17/10 at 0745 $ Given 11/17/2010 8:16 AM LEAD SHIPPER 20 g documented in this encounter Care Teams Screen Examiner Relationship Specialty Start Date End Date Philip Gomez MD [address] [place] [address] PCP - General 08/11/10 01/04/11 documented as of this encounter
--- OUTSIDE RECORDS SUMMARY | 2024-10-28 05:58 | XMS_ITS | Encounter Summary ---
Author Organization [facility] Address [address] [place] [address] Care Team Providers Care Lay Midwife Name Role Phone Vilma Spangler MD Primary Care Provider [phone] Reason for Visit * Reason Onset Date Comments LABS ONLY 04/01/2011 Scheduling 04/01/2011 follow up Encounter Details Date Type Department Care Team (Late st Contact Info) Description 04/01/2011 Telephone [facility] Transplant Services [address] [place] [id number] Batool Mcdermott RN LABS ONLY; Scheduling (follow up) Social History Tobacco Use Types Packs/Day Years [...] Telephone Encounter - Batool Mcdermott RN - 04/01/2011 1:21 PM CDT Spoke to mom today about Beka's last tacrolimus level being < 0.8. Mom states she thinks Beka is not always taking his medication. Instructed mom to encourage him to take it regularly and recheck his tacrolimus level in one week. Mom is going to try to reschedule his next IvIg infusion to April 29 so he can also see Dr. Chao the same day. Mom to call back if she is able to do so. documented in this encounter Plan of Treatment Not on file documented as of this encounter Visit Diagnoses Not on filedocumented in this encounter Care Teams Lay Midwife Relationship Specialty Start Date End Date Vilma Spangler MD [address] [phone] PCP - General 01/05/11 documented as of this encounter
--- OUTSIDE RECORDS SUMMARY | 2024-10-28 05:58 | XMS_ITS | Encounter Summary ---
Author Organization [facility] Address [address] [place] [address] Care Team Providers Care Strip Polisher Name Role Phone Philip Gomez MD Primary Care Provider Encounter Details Date Type Department Care Team (Latest Contact Info) Description 05/13/2010 7:37 AM CDT - 05/13/2010 11:59 PM CDT Hospital Encounter [facility] at [address] [address] Discharge Disposition: Home or Self Care Social [...] Sign Reading Time Taken Comments Blood Pressure 104/52 05/13/2010 10:38 AM CDT Pulse 60 05/13/2010 10:38 AM CDT Temperature 35.6 ??C (96 ??F) 05/13/2010 9:00 AM CDT Respiratory Rate 20 05/13/2010 10:3 8 AM CDT Oxygen Saturation 98% 05/13/2010 8:00 AM CDT Inhaled Oxygen Concentration - - Weight 52.9 kg (116 lb 10 oz) 05/13/2010 8:00 AM CDT Height 169.3 cm (5' 6.65 ) 05/13/2010 8:00 AM CD T Body Mass Index 18.46 05/13/2010 8:00 AM CDT Body Mass Index Percentile 9.89% 05/13/2010 8:0 0 AM CDT Growth Chart: CDC (Boys, 2-2 0 Years) documented in this encounter Discharge Instructions * Discharge Instructions* Document, Scanned - 05/13/2010 12:00 AM CDT documented in this encounter Medications at Time of Discharge Medication Sig Dispensed Refills Start Date End Date tacrolimus (PROGRAF) 1 MG capsule Take 1 mg by mouth 2 times daily. 03/14/2012 documented as of this encounter Progress Notes * Daphne Mnceal RN - 05/13/2010 12:54 PM CDT Pt here at [facility] for scheduled IVIG infusion. Pt accompanied by mom, dad, and brother. 500mg Tylenol and 50mg benedryl given upon arrival. 22G Peripheral IV inserted in left AC. Pt tolerated procedure well. IVIG infusion given per protocol. Pt's vitals remain stable through out infusion andthere were no evidence of transfusion reaction. Peripheral IV removed upon completion of infusion. Pt was seen by Dr. Chavez. Pt discharged home with patient. Discharge instructions given and patient and parents were told to return to [facility] in 4 weeks for lab work and possible IVIG infusion.Daphne Mcneal RN 05/13/2010 12:52 PM * Philip Chavez MD - 05/13/2010 9:52 AM CDT Hematology/Oncology Progress/Admission Note 05/13/2010 Beka Nichols PCP: Philip Gomez MD Diagnosis: Autoimmune cytopenias (Neutropenia/Thrombocytopenia) No Known Allergies. Current hospital medications Medication Dose Route Frequency Provider Last Rate Last Dose ??? diphenhydrAMINE (BENADRYL) tablet 50 mg 50 mg Oral ONCE PHILIP CHAVEZ 50 mg (05/13/10 8:15 AM) ??? acetaminophen (TYLENOL) tablet 500 mg 500 mg Oral ONCE PHILIP CHAVEZ 500 mg (05/13/10 8:15 AM) ??? dextrose 5% infusion Intravenous CONTINUOUS PHILIP CHAVEZ ??? immune globulin (human) (GAMMAGARD;GAMUNEX;PRIVIGEN) 10 % infusion 20 g 20 g Intravenous CONTINUOUS PHILIP CHAVEZ 32 mL/hr (05/13/10 8:44 AM) 20 g (05/13/10 8:44 AM) Current outpatient prescriptions Medication Sig Dispense Refill ??? tacrolimus (PROGRAF) 1 MG capsule Take 1 mg by mouth 2 times daily. Home medications reviewed and all medications taken as prescribed Review of Systems: 1) General Fever: no [...] no 13) Nutritional Status good Interval History Fine at home. No fevers. Appetite fine. Taking medicine as prescribed. No bleeding. 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 Energy level unremarkable. Past Medical History: unchanged Family Medical History: unchanged Social History: Denies smoking Physical Exam Constitutional: BP 90/58 Pulse 72 Temp 96 ??F Resp 24 Ht 1.693 m (5' 6.65 ) Wt 52.9 kg (116 lb 10 oz) SpO2 98% BSA (Calculated): 1.58 General Appearance: No acute distress Head: No nasal congestion or discharge Skin: no rashes, bruises, or petechiae. Without facial ruddiness Ears: tympanic membranes normal Eyes: anicteric: pupils equal, round, reactive to light; intact extra-ocular movements; Mouth/throat: no sores, erythema, exudates, or mucosal pallor. Tonsils not enlarged. Neck: supple without masses Lymph nodes: no palpable lymphadenopathy Chest: lungs clear to auscultation Heart: normal S1 and S2, no murmur Back: no spinous or CVA tenderness Abdomen: soft, non-tender, no masses or hepatosplenomegaly Genitalia: deferred Extremities: no focal swelling or tenderness; full ROM Lab and/or Imaging Studies Recent Results (from the past 24 hours) CBC W MANUAL DIFFERENTIAL Collection Time 05/13/10 8:20 AM Component Value Range ??? WBC 5.01 4.5 - 11.0 (K/cumm) ??? RBC 5.96 (*) 4.50 - 5.30 (mill/cumm) ??? Hgb 19.0 (*) 13.0 - 16.0 (gm/dl) ??? Hct 52.2 (*) 37.0 - 49.0 (%) ??? MCV 87.6 78.0 - 98.0 (cu microns) ??? MCH 31.9 25.0 - 35.0 (uug) ??? MCHC 36.4 31.0 - 37.0 (%) ??? RDW 12.6 (%) ??? MPV 10.8 (fl) ??? Plt Ct K/CUMM 218 100 - 400 (K/cumm) ??? Manual Diff Comment Done ??? Seg Manual 63 31 - 78 (%) ??? Lymph Manual 16 13 - 54 (%) ??? [place] Manual 17 (*) 4 - 13 (%) ??? Eos Manual 3 0 - 8 (%) ??? Atyp Lymph Manual 1 (%) ??? RBC Morph Slight Anisocytosis, Poikylocytosis IGG BLOOD Collection Time 05/13/10 8:20 AM Component Value Range ??? IgG 835 639 - 1349 (mg/dl) HEPATIC FUNCTION PANEL Collection Time 05/13/10 8:20 AM Component Value Range ??? Bili Total 0.7 0.6 - 1.4 (mg/dl) ??? Bili Conj Direct ND 0.0 - 0.3 (mg/dl) ??? Protein Total 7.5 6.3 - 8.6 (gm/dl) ??? Albumin 4.8 3.7 - 5.6 (gm/dl) ??? ALT/SGPT 25 10 - 40 (Units/L) ??? AST/SGOT 37 10 - 45 (Units/L) ??? Alk Phos 123 65 - 260 (Units/L) ??? Specimen Type/Condition nvh BUN Collection Time 05/13/10 8:20 AM Component Value Range ??? BUN 10.4 8 - 21 (mg/dl) CREATININE BLOOD Collection Time 05/13/10 8:20 AM Component Value Range ??? Creatinine 0.87 0.50 - 1.06 (mg/dl) GGT Collection Time 05/13/10 8:20 AM Component Value Range ??? GGT 23 11 - 31 (Units/L) GLUCOSE Collection Time 05/13/10 8:20 AM Component Value Range ??? Glucose 83 70 - 106 (mg/dl) LYTES (NA K CL CO2) BLOOD Collection Time 05/13/10 8:20 AM Component Value Range ??? Sodium 143 137 - 145 (mmol/L) ??? Potassium 4.2 3.5 - 5.1 (mmol/L) ??? Chloride 106 98 - 107 (mmol/L) ??? CO2 27.7 22 - 30 (mmol/L) MAGNESIUM BLOOD Collection Time 05/13/10 8:20 AM Component Value Range ??? Magnesium mg/dL 1.9 1.6 - 2.3 (mg/dl) TACROLIMUS LEVEL Collection Time 05/13/10 8:20 AM Component Value Range ??? 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 Status post Rituximab in 10/09. Antibodies have resolved. Counts stable 2. Polycythemia: Hemoglobin > 18 for last three months. Asymptomatic. Not cyanotic. PolycythemiaVera quite rare. Secondary polycythemia with diverse etiology. Congenital polycythemia unlikely given normal hemoglobins up until last few months. 3. 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 IgG normal today. Plan 1. Lab work as above 2. IVIG 20 grams today. Check IgG in 4 weeks and follow clinically. D/C regular IVIG infusions 3. Check blood gas, erythropoietin at next visit. documented in this encounter Miscellaneous Notes * Miscellaneous Scans - Document, Scanned - 06/12/2010 11:06 AM CDT documented in this encounter Plan of Treatment Scheduled Orders Name Type Priority Associated Diagnoses Orde r Schedule HEPATIC FUNCTION PANEL Lab Routine Transplant 1 Occurrences starting 05/13/2010 documented as of this encounter Procedures Procedure Name Priority Date/Time Associated Diagnosis Comments TACROLIMUS LEVEL Routine 05/13/2010 8:20 AM CDT Transplant CBC W MANUAL DIFFERENTIAL Timed 05/13/2010 8:20 AM CDT Neutropenia Associated with Autoimmune Disease (HCC) GLUCOSE Routine 05/13/2010 8:20 AM CDT Transplant LYTES (NA K CL CO2) BLOOD Routine 05/13/2010 8:20 AM CDT Transplant HEPATIC FUNCTION PANEL Routine 05/13/2010 8:20 AM CDT Neutropenia Associated with Autoimmune Disease (HCC) MAGNESIUM BLOOD Routine 05/13/2010 8:20 AM CDT Transplant GGT Routine 05/13/2010 8:20 AM CDT Transplant CREATININE BLOOD Routine 05/13/2010 8:20 AM CDT Transplant BUN Routine 05/13/2010 8:20 AM CDT Transplant IGG BLOOD Timed 05/13/2010 8:20 AM CDT Neutropenia Associated with Autoimmune Disease (HCC) documented in this encounter Results * TACROLIMUS LEVEL (05/13/2010 8:20 AM CDT) Tacrolimus 8.5 3.0 - 12.0 ng/ml [facility] BLOOD SPECIMEN / Unknown 05/13/2010 8:20 AM CDT 05/13/2010 8:52 AM CDT Houston Chao MD LAB - THERAPEUTIC DR MCCLELLAN MONITORING ORDERABLES [facility] [address] [place] [address] * MAGNESIUM BLOOD (05/13/2010 8:20 AM CDT) Magnesium 1.9 1.6 - 2.3 mg/dl [facility] BLOOD SPECIMEN / Unknown 05/13/2010 8:20 AM CDT 05/13/2010 8:47 AM CDT Houston Chao MD LAB - CHEMISTRY MACIE HERNÁNDEZ Performing Organization Address City/[facility]/ZIP Co de Phone Number [facility] [address] [place] [phone] * LYTES (NA K CL CO2) BLOOD (05/13/2010 8:20 AM CDT) Sodium 143 137 - 145 mmol/L [facility] Potassium 4.2 3.5 - 5.1 mmol/L [facility] Chloride 106 98 - 107 mmol/L [facility] CO2 27.7 22 - 30 mmol/L [facility] BLOOD SPECIMEN / Unknown 05/13/2010 8:20 AM CDT 05/13/2010 8:45 AM CDT Housotn Chao MD LAB - CHEMISTRY MACIE HERNÁNDEZ Performing Organization Address City/[facility] Co de Phone Number [facility] [address] [place] [phone] * GLUCOSE (05/13/2010 8:20 AM CDT) Glucose 83 70 - 106 mg/dl [facility] BLOOD SPECIMEN / Unknown 05/13/2010 8:20 AM CDT 05/13/2010 8:46 AM CDT Houston Chao MD LAB - CHEMISTRY MACIE HERNÁNDEZ Performing Organization Address City/[facility]/ZIP Co de Phone Number [facility] [address] [place] [phone] * GGT (05/13/2010 8:20 AM CDT) GGT 23 11 - 31 Units/L [facility] BLOOD SPECIMEN / Unknown 05/13/2010 8:20 AM CDT 05/13/2010 8:44 AM CDT Houston Chao MD LAB - CHEMISTRY MACIE HERNÁNDEZ Performing Organization Address City/State/[facility] Co de Phone Number [facility] [address] [place] [address] * CREATININE BLOOD (05/13/2010 8:20 AM CDT) Creatinine 0.87 0.50 - 1.06 mg/dl [facility] BLOOD SPECIMEN / Unknown 05/13/2010 8:20 AM CDT 05/13/2010 8:57 AM CDT Houston Chao MD LAB - CHEMISTRY MACIE HERNÁNDEZ Performing Organization Address [facility] Co de Phone Number [facility] [address] [place] [address] * BUN (05/13/2010 8:20 AM CDT) BUN 10.4 8 - 21 mg/dl [facility] BLOOD SPECIMEN / Unknown 05/13/2010 8:20 AM CDT 05/13/2010 8:56 AM CDT Houston Chao MD LAB - CHEMISTRY MACIE HERNÁNDEZ Performing Organization Address [facility] de Phone Number [facility] [address] [place] [phone] * HEPATIC FUNCTION PANEL (05/13/2010 8:20 AM CDT) Bilirubin Total 0.7 0.6 - 1.4 mg/dl [facility] Bilirubin Direct ND 0.0 - 0.3 mg/dl [facility] Protein Total 7.5 6.3 - 8.6 gm/dl [facility] Albumin 4.8 3.7 - 5.6 gm/dl [facility] ALT 25 10 - 40 Units/L [facility] AST 37 10 - 45 Units/L [facility] Alkaline Phosphatase 123 65 - 260 Units/L [facility] Specimen Type/Condition [facility] BLOOD SPECIMEN / Unknown 05/13/2010 8:20 AM CDT 05/13/2010 8:45 AM CDT Philip Chavez MD LAB - CHEMISTRY O RDERABLES Performing Organization Address [facility] de Phone Number [facility] [address] [place] [address] * IGG BLOOD (05/13/2010 8:20 AM CDT) IgG 835 639 - 1349 mg/dl [facility] BLOOD SPECIMEN / Unknown 05/13/2010 8:20 AM CDT 05/13/2010 8:45 AM CDT Philip Chavez MD LAB - CHEMISTRY O RDERABLES Performing Organization Address [facility] de Phone Number [facility] [address] [place] [address] * (ABNORMAL) CBC W MANUAL DIFFERENTIAL (05/13/2010 8:20 AM CDT) WBC 5.01 4.5 - 11.0 K/cumm [facility] RBC 5.96(H) 4.50 - 5.30 mill/cumm [facility] Hemoglobin 19.0(H) 13.0 - 16.0 gm/dl [facility] Hematocrit 52.2(H) 37.0 - 49.0 % [facility] MCV 87.6 78.0 - 98.0 cu microns [facility] MCH 31.9 25.0 - 35.0 uug [facility] MCHC 36.4 31.0 - 37.0 % [facility] RDW 12.6 % [facility] MPV 10.8 fl [facility] Platelet Count 218 100 - 400 K/cumm [facility] Comment Manual Diff Done [facility] Neutrophils % Manual 63 31 - 78 % [facility] Lymphocytes % Manual 16 13 - 54 % [facility] Monocytes % Manual 17(H) 4 - 13 % [facility] Eosinophils % Manual 3 0 - 8 % [facility] Atypical Lymphocyte % Manual 1 % [facility] RBC Morphology Slight Anisocytosis, Poikylocytosis [facility] BLOOD SPECIMEN / Unknown 05/13/2010 8:20 AM CDT 05/13/2010 8:45 AM CDT Philip Chavez MD LAB - HEMATOLOGY ORDERABLES Performing Organization Address [facility]/State/ZIP Co de Phone Number [facility] [address] [facility] [place] [address] documented in this encounter Visit Diagnoses Diagnosis Neutropenia associated with autoimmune disease (HCC) Other neutropenia Transplant Unspecified organ or tissue replaced by transplant documented in this encounter Administered Medications Inactive Administered Medications - up to 3 most recent administrations Medication Order MAR Action Action Date Dose Rate Site acetaminophen (TYLENOL) tablet 500 mg 500 mg, Oral, ONCE, 1 dose, On Wed05/13/10 at 0800, ~~~~~~AMELIE~~~~~~~~~~~~COS TAS~~~~~~Maximum allowable Acetaminophen amount = 4 Grams / 24 hours. $ Given 05/13/2010 8:15 AM CDT 500 mg dextrose 5% infusion at 50 mL/hr, Intravenous, CONTINUOUS, Starting on Wed05/13/10 at 1015, Until Wed05/13/10 at 1114, IVIG FLUSH~~~~~~AMELIE~~~~~~~~~~ ~~AMELIE~~~~~~ $ New Bag/Syringe 05/13/2010 10:45 AM CDT 50 mL/hr diphenhydrAMINE (BENADRYL) tablet 50 mg 50 mg, Oral, ONCE, 1 dose, On Wed05/13/10 at 0815 $ Given 05/13/2010 8:15 AM CDT 50 mg immune globulin (human) (GAMMAGARD;GAMUNEX;PRIVIGEN ) 10 % infusion 20 g 20 g, Intravenous, CONTINUOUS, Starting on Wed05/13/10 at 1015, Until Wed05/13/10 at 1214, ~~~~~~AMELIE~~~~~~~~~~~~COS TAS~~~~~~ $ New Bag/Syringe 05/13/2010 8:44 AM CDT 20 g 32 mL/hr documented in this encounter Care Teams Strip Polisher Relationship Specialty Start Date End Date Philip Gomez MD [address] [place] [address] PCP - General 11/15/09 07/09/10 documented as of this encounter
--- OUTSIDE RECORDS SUMMARY | 2024-10-28 05:58 | XMS_ITS | Encounter Summary ---
Author Organization [facility] Address [address] [place] [address] Care Team Providers Care Inspector Process Name Role Phone Vilma Spangler MD Primary Care Provider Encounter Details Date Type Department Care Team (Late st Contact Info) Description 07/15/2010 12:01 AM CDT - 07/15/2010 11:59 PM CDT Hospital Encounter [facility] at [address] [address] Philip Chavez MD [address] [place] [phone] Hematology Discharge Disposition: Home or Self Care [...] Sign Reading Time Taken Comments Blood Pressure 98/50 07/15/2010 7:00 AM CDT Pulse 88 07/15/2010 7:00 AM CDT Temperature 36.9 ??C (98.4 ??F) 07/15/2010 7:00 AM CD T Respiratory Rate 20 07/15/2010 7:00 AM CDT Oxygen Saturation 97% 07/15/2010 7:00 AM CDT Inhaled Oxygen Concentration - - Weight 53.3 kg (117 lb 8.1 oz) 07/15/2010 7:00 A M CDT Height 168.7 cm (5' 6.42 ) 07/15/2010 7:00 AM CD T Body Mass Index 18.73 07/15/2010 7:00 AM CDT Body Mass Index Percentile 11.57% 07/15/2010 7:0 0 AM CDT Growth Chart: CDC (Boys, 2-2 0 Years) documented in this encounter Discharge Instructions * Patient Instructions* Lisandra Simmons RN - 07/15/2010 10:55 AM CDT Call the clinic Wednesday or Wednesday to let Dr. Chavez know how Beka is feeling. If he feels worse before then, call then. * Discharge Instructions* Document, Scanned - 07/17/2010 1:43 PM CDT documented in this encounter Medications at Time of Discharge Medication Sig Dispensed Refills Start Date End Date tacrolimus (PROGRAF) 1 MG capsule Take 1 mg by mouth 2 times daily. 03/14/2012 documented as of this encounter Progress Notes * Lisandra Simmons RN - 07/15/2010 12:21 PM CDT Patient in clinic for scheduled IVIG infusion. Patient triaged and assessed by RN. Patient states that he doesn't feel well; MD notified. #22 started to left AC without difficulty; patient tolerated well. IV flushes well and blood return noted. Blood obtained from IV and sent to lab. Patient premedicated with tylenol and benadryl PO as ordered. IVIG infused without any adverse reactions. Post infusion IV flushed with NS and removed; catheter intact and bandaid applied. Discharge instructions reviewed with patient and patient's sister. Instructed to call Wednesday or Wednesday to let Dr. Chavez knowhow Beka is feeling, and to call before then if he isn't feeling well. Patient and sister verbalized understanding. Patient discharged with sister. * Philip Chavez MD - 07/15/2010 9:24 AM CDT Hematology/Oncology Progress/Admission Note 07/15/2010 Beka Nichols PCP: Vilma Spangler MD Diagnosis: Autoimmune Neutropenia/Thrombocytopenia, Hypogammaglobulinemia No Known Allergies Current outpatient prescriptions Medication Sig Dispense Refill ??? tacrolimus (PROGRAF) 1 MG capsule Take 1 mg by mouth 2 times daily. Current facility-administered medications Medication Dose Route Frequency Provider Last Rate Last Dose ??? immune globulin (human) (GAMMAGARD;GAMUNEX;PRIVIGEN) 10 % infusion 20 g 20 g Intravenous Once Philip Chavez MD Last Dose: 20 g at 07/15/10829 ??? acetaminophen (TYLENOL) tablet 650 mg 650 mg Oral Once Philip Chavez MD Last Dose: 650 mg at 07/15/10829 ??? diphenhydrAMINE (BENADRYL) tablet 50 mg 50 mg Oral Once Philip Chavez MD Last Dose: 50 mg at 07/15/10829 ??? dextrose 5 % infusion Intravenous Once Philip Chavez MD Review of Systems: 1) General Fever: no Wt/appetite change: decreased appetite recently Other: generalized low energy. 2) Hem Bruising: no Other:no 3) Skin Rash: no Other: no 4) ENT Congestion:no Rhinorrhea: no Epistaxis: no Sore Throat: no Change in Hearing: no Earache: no Stomatitis: no 5) Resp/CV Shortness of Breath: no Chest Pain: no Cough:no Palpitation: no Other: no 6) GI Pain: generalized abdominal discomfort Jaundice: no Nausea: no Vomiting: no Diarrhea: [...] no 13) Nutritional Status good Interval History Seen last week and noted to be mildly hypogammaglobulinemic. Vague abdominal discomfort at that visit. Since that point patient has been feeling progressively worse. Very tired. Generalized achiness.Appetite decreased but able to eat without difficulty. Abdominal discomfort is generalized. Not asso ciated with vomiting or diarrhea. No URI symptoms. No fevers. No new medications. Claims symptoms similar to how he felt with EBV reactivation and when first noted to be hypogammaglobulinemic. Past Medical History: unchanged Family Medical History: unchanged Physical Exam Constitutional: BP 98/50 Pulse 88 Temp 98.4 ??F Resp 20 Ht 1.687 m (5' 6.42 ) Wt 53.3 kg (117 lb 8.1 oz) SpO2 97% BSA (Calculated): 1.58 General Appearance: No acute distress. Tired Head: No nasal congestion or discharge Skin: no rashes, bruises, or petechiae Ears: tympanic membranes normal Eyes: anicteric: pupils [...] hour(s)) CBC W MANUAL DIFFERENTIAL Collection Time 07/15/10 8:15 AM Component Value Range ??? WBC 5.39 4.5 - 11.0 (K/cumm) ??? RBC 5.91 (*) 4.50 - 5.30 (mill/cumm) ??? Hgb 18.9 (*) 13.0 - 16.0 (gm/dl) ??? Hct 52.9 (*) 37.0 - 49.0 (%) ??? MCV 89.5 78.0 - 98.0 (cu microns) ??? MCH 32.0 25.0 - 35.0 (uug) ??? MCHC 35.7 31.0 - 37.0 (%) ??? RDW 13.3 (%) ??? MPV 10.9 (fl) ??? Plt Ct K/CUMM 240 100 - 400 (K/cumm) ??? Manual Diff Comment Done ??? Seg Manual 77 31 - 78 (%) ??? Lymph Manual 10 (*) 13 - 54 (%) ??? [place] Manual 9 4 - 13 (%) ??? Eos Manual 3 0 - 8 (%) ??? Atyp Lymph Manual 1 (%) ??? RBC Morph Value: Some Anisocytosis, Some Poikylocytosis, Some Macrocytes, Some Microcytes, Some Ovalocytes Assessment 1. Hypogammaglobulinemia with generalized malaise/viral like syndrome: Unclear if two are intimately connected but IVIG replacement seemed to correspond to improvement in symptoms earlier this year. 2. Autoimmune neutropenia/thrombocytopenia: Resolved for now after Rituximab 3. Liver Transplant: On Tacrolimus 4. Polycythemia: Hb back to 18.9 after being normal last week. Erythropoietin level low normal lastweek. Reference was noted of Tacrolimus being associated with erythrocytosis. Plan 1. IVIG 400 mg/kd today. Premed with Tylenol and Benadryl 2. Continue Tacrolimus 3. Repeat counts and IgG in 4 weeks. 4. Call if symptoms worsen or if new symptoms arise 5. EBV PCR Follow-Up 4 weeks documented in this encounter Miscellaneous Notes * Miscellaneous Scans - Document, Scanned - 08/28/2010 5:46 PM CDT documented in this encounter Plan of Treatment Not on file documented as of this encounter Procedures Procedure Name Priority Date/Time Associated Diagnosis Comments JOSE-DE LA CRUZ VIRUS PCR QUALITATIVE Routine 07/15/2010 8:15 AM CDT Hypogammaglobulinem ia (HCC) CBC W MANUAL DIFFERENTIAL ZAHRA 07/15/2010 8:15 AM CDT Hypogammaglobulinem ia (HCC) documented in this encounter Results * (ABNORMAL) CBC W MANUAL DIFFERENTIAL (07/15/2010 8:15 AM CDT) WBC 5.39 4.5 - 11.0 K/cumm [facility] RBC 5.91(H) 4.50 - 5.30 mill/cumm [facility] Hemoglobin 18.9(H) 13.0 - 16.0 gm/dl [facility] Hematocrit 52.9(H) 37.0 - 49.0 % [facility] MCV 89.5 78.0 - 98.0 cu microns [facility] MCH 32.0 25.0 - 35.0 uug [facility] MCHC 35.7 31.0 - 37.0 % [facility] RDW 13.3 % [facility] MPV 10.9 fl [facility] Platelet Count 240 100 - 400 K/cumm [facility] Comment Manual Diff Done [facility] Neutrophils % Manual 77 31 - 78 % [facility] Lymphocytes % Manual 10(L) 13 - 54 % [facility] Monocytes % Manual 9 4 - 13 % [facility] Eosinophils % Manual 3 0 - 8 % [facility] Atypical Lymphocyte % Manual 1 % [facility] RBC Morphology Some Anisocyto sis, Some Poikylocy tosis, Some Macrocyte s, Some Microcyte s, Some Ovalocyte s [facility] BLOOD SPECIMEN / Unknown 07/15/2010 8:15 AM CDT 07/15/2010 8:29 AM CDT Philip Chavez MD LAB - HEMATOLOGY ORDERABLES Performing Organization Address City/State/[facility] [place] Phone Number [facility] [address] [place] [address] * JOSE-BAR VIRUS PCR QUALITATIVE BLOOD (07/15/2010 8:15 AM CDT) Jose-De La Cruz Virus PCR NO EBV DNA Detected Not Detected [facility] Comment EBV PCR [facility] Comment: This assay has [...] ??EBV levels can vary by speimen type: [facility] uses whole blood which is more [...] characteristics determined by the [facility]. ??It has not been cleared or [...] clinical laboratory testing. BLOOD SPECIMEN / Unknown 07/15/2010 8:15 AM CDT 07/15/2010 8:29 AM CDT Philip Chavez MD LAB - MICROBIOLOG Y ORDERABLES Performing Organization Address City/State/[facility] [place] Phone Number [facility] [address] [place] [address] documented in this encounter Visit Diagnoses Diagnosis Hypogammaglobulinemia (HCC) Hypogammaglobulinaemia, unspecified documented in this encounter Administered Medications Inactive Administered Medications - up to 3 most recent administrations Medication Order MAR Action Action Date Dose Rate Site acetaminophen (TYLENOL) tablet 650 mg 650 mg, Oral, ONCE, 1 dose, On Wed07/15/10 at 0800, Maximum allowable Acetaminophen amount = 4 Grams / 24 hours. $ Given 07/15/2010 8:30 AM CDT 650 mg diphenhydrAMINE (BENADRYL) tablet 50 mg 50 mg, Oral, ONCE, 1 dose, On Wed07/15/10 at 0800 $ Given 07/15/2010 8:30 AM CDT 50 mg immune globulin (human) (GAMMAGARD;GAMUNEX;PRIVIGEN) 10 % infusion 20 g 20 g, Intravenous, ONCE, 1 dose, On 9/14/10 at 0900 $ Given 07/15/2010 8:30 AM CDT 20 g documented in this encounter Care Teams Inspector Process Relationship Specialty Start Date End Date Vilma Spangler MD [address] [phone] PCP - General 07/10/10 08/10/10 documented as of this encounter
--- OUTSIDE RECORDS SUMMARY | 2024-10-28 05:58 | XMS_ITS | Encounter Summary ---
Author Organization [facility] Address [address] [place] [address] Care Team Providers Care Photocomposing Machine Operator Name Role Phone Philip Gomez MD Primary Care Provider Vilma Spangler MD Primary Care Provider [phone] Philip Gomez MD Primary Care Provider Vilma Spangler MD Primary Care Provider [phone] Encounter Details Date Type Department Care Team (Late Contact [facility]) Description 03/02/1999 Orders Only [facility] - [address] [address] ProviderDl MD Social History Tobacco Use Types Packs/Day Years Used Date Smoking Tobacco: Never Assessed Sex and Gender Information Value Date Recorded Sex Assigned at Not on file Gender Identity Not on file Sexual Orientation Not on file documented as of this encounter Plan of Treatment Not on file documented as of this encounter Procedures Procedure Name Priority Date/Time Associated Diagnosis Comments GROSS + MICRO EXAM ZAHRA 06/17/2000 9: 30 AM CDT GROSS + MICRO EXAM ZAHRA 04/06/2000 11 :41 AM CDT GROSS + MICRO EXAM ZAHRA 03/04/2000 12 :00 PM CDT GROSS + MICRO EXAM ZAHRA 03/09/1999 11 :30 AM CDT GROSS + MICRO EXAM ZAHRA 03/03/1999 4: 15 PM CDT GROSS + MICRO EXAM ZAHRA 03/02/1999 7: 40 PM CDT documented in this encounter Results * GROSS + MICRO EXAM (06/17/2000 9:30 AM CDT) Result CASE NUMBER [id number] [facility] PATH REPORT Comment: ORDERING PHYSICIAN ??HESHAM FAJARDO SPECIMEN TYPE ?Adenoids CLINICAL HISTORY ? The patient is a 5-year-old boy with frequent recurrent otitis media who underwent myringotomy with bilateral tubes and adenoidectomy. ??The operative findings are left otitis media with moderate adenoid enlargement. ??The history revealed frequent recurrent otitis media with history of liver transplant. GROSS DESCRIPTION ? The specimen is received in a single container labeled with the patient's name and A1, adenoids and consists of multiple small pieces of pink-preston and red-preston soft tissue measuring 2.5 x 2 x 0.4 cm. in aggregate and weighing 1 gram. ??The entire specimen is wrapped in tissue paper and submitted in cassette A1 . ??(BC/kb) MICROSCOPIC DESCRIPTION ? 1 H/E. There is follicular lymphoid hyperplasia and proliferation of lymphocytes in the interfollicular regions. ??Because of the history of transplantation, immunostains were ordered. Please see hematopathology report for details. ??(BC/akn) DIAGNOSIS ? DIAGNOSIS ??A1) ADENOIDS, EXCISION ?- FOLLICULAR AND INTERFOLLICULAR HYPERPLASIA ?(SEE HEMATOPATHOLOGY REPORT). RESIDENT IN PATHOLOG Nuzhat Singh M.D. PATHOLOGIST ?Riley Maria M.D. ELECTRONICALLY BREEZYRILEY DAVID MISCELLANEOUS SAMPLES / Unknown 06/17/2000 9:30 AM CDT 06/17/2000 2:33 PM CDT Historical Provider LAB - PATHOLOGY/C YTOLOGY ORDERABLES [facility] PATH REPORT * GROSS + MICRO EXAM (04/06/2000 11:41 AM CDT) Result CASE NUMBER [id number] [facility] PATH REPORT Comment: ORDERING PHYSICIAN ??GARRY PURDY SPECIMEN TYPE ?Liver ([place]) Bx CLINICAL HISTORY ? The patient is a 5-year-old boy who is fourteen months status post liver transplant with persistently elevated liver function tests. ??The patient underwent percutaneous liver biopsy to rule out allograft rejection. GROSS DESCRIPTION ? The specimen is received fresh at the patient's bedside and consists of multiple fragmented cores of pink-preston soft tissue with an aggregate measurement of 3 x 0.1 x 0.1 cm. ??The specimens are submitted in toto as A1 . ??(CT/akn) MICROSCOPIC DESCRIPTION ? (2 H/E, 1 Trichrome, 1 Reticulin, 1 Prussian blue, 1 PAS, 1 PAS- Diastase, 1 Bilirubin) Sections of the liver biopsy show mild expansion of portal tracts by mononuclear inflammatory cells. ??Occasional bile ducts show epithelial damage. ??No endothelialitis is identified. ??The parenchyma shows red blood cells within the space of Disse and multiple red cell trabecular lesions. ??Trichrome and reticulin stains show central vein fibrosis and sinusoidal fibrosis. ??PAS stains shows abundant hepatocellular glycogen. ??PAS-diastase stain is negative for [id number] globules. ??Prussian blue stain is negative for hepatocellular iron. ??Bilirubin stains is negative for cholestasis. ??(DB/CSA/aed) DIAGNOSIS ? DIAGNOSIS ?? A1) LIVER, ALLOGRAFT, NEEDLE BIOPSY ? - ACUTE VENOUS OUTFLOW OBSTRUCTION. ? - ACUTE (CELLULAR) REJECTION, RESOLVING. Founder Chairman And Chief Creative Officer ? Leeanna Pillai RESIDENT IN PATHOLOG Jez Chanel M.D. PATHOLOGIST ?Alejandro Bay M.D. ELECTRONICALLY BREEZY Alejandro Bay MISCELLANEOUS SAMPLES / Unknown 04/06/2000 11:41 AM CDT 04/06/2000 11:42 AM CDT Historical Provider MD LAB - PATHOLOGY/C YTOLOGY ORDERABLES [facility] PATH REPORT * GROSS + MICRO EXAM (03/04/2000 12:00 PM CDT) Result CASE NUMBER [id number] [facility] PATH REPORT Comment: ORDERING PHYSICIAN ??GARRY PURDY SPECIMEN TYPE ?Liver ([place]) Bx CLINICAL HISTORY ? The patient is a 5-year-old boy who is status post liver transplant. ??The patient's transaminase ranges from 5-700. ??The patient underwent a percutaneous liver biopsy to rule-out allograft rejection. GROSS DESCRIPTION ? The specimen is received fresh at the patient's bedside and consists of three fragmented cores of pink-preston soft tissue with an aggregate measurement of 3 cm. in length by 0.1 cm. in diameter. ??The specimen is submitted in toto as A1 . ??(CT/kb) MICROSCOPIC DESCRIPTION ? 2 H/E, 1 Trichrome, 1 Reticulin, 1 Prussian Blue, 1 Bilirubin, 1 PAS, 1 PAS-Diastase Sections of the liver needle biopsy show mild expansion of portal tracts by mononuclear inflammatory cells. ??There is bile duct epithelial damage. ??The inflammatory infiltrate extends to involve the lobule. ??Endothelialitis is present. ??Trichrome stain shows periportal and sinusoidal fibrosis. ??Reticulin stain shows no significant abnormalities. ??Prussian blue stain shows 1+ hepatocellular iron. ??Bilirubin stain is negative. ??PAS stain shows abundant hepatocellular glycogen. ??PAS-diastase is negative. ??(DB/akn) DIAGNOSIS ? DIAGNOSIS ?? A1) LIVER, ALLOGRAFT, NEEDLE BIOPSY ? - ACUTE (CELLULAR) REJECTION, MODERATE. RESIDENT IN PATHOLOG Camilo Chanel M.D. PATHOLOGIST ?Riley Maria M.D. ELECTRONICALLY BREEZYRILEY DAVID MISCELLANEOUS SAMPLES / Unknown 03/04/2000 12:00 PM CDT 03/04/2000 12:15 PM CDT Historical Provider MD LAB - PATHOLOGY/C YTOLOGY ORDERABLES [facility] PATH REPORT * GROSS + MICRO EXAM (03/09/1999 11:30 AM CDT) Result CASE NUMBER [id number] [facility] PATH REPORT Comment: ORDERING PHYSICIAN ??GARRY ORTA SPECIMEN TYPE ?Liver ([place]) Bx CLINICAL HISTORY ? The patient is a 4-year-old boy who is status post liver transplant who now presents with a bile leak. GROSS DESCRIPTION ? The specimens are received fixed in formalin in two containers for gross and microscopic examination. ??In the first container labeled A, liver biopsy is a fragmented core of brown-preston soft tissue measuring 1.3 x 0.3 x 0.2 cm. ??The specimen is entirely submitted as A1 . In the next container labeled B, fat necrosis of lesser omentum is a 1 x 0.5 x 0.3 cm. irregular shaped fragment of shaggy, red- preston, soft tissue submitted in toto as B1 . ??(CT/akn) MICROSCOPIC DESCRIPTION ? A) 2 H/E, 1 PAS, 1 PAS-D, 1 IRON, 1 BILIRUBIN, 1 RETICULUM, ?? 1 TRICHROME B) 1 H/E, 1 BILIRUBIN, 1 TISSUE GRAM STAIN (BROWN-HOPPS) Specimen A ?? Sections of the liver show no significant inflammation or no evidence of acute rejection. ??The protal tracts are slightly enlarged due to proliferation of bile ducts, consistent with the clinical history of a bile leak. ??There is zone 3 hepatocellular accumulation of yellow-brown pigment, confirmed to be bilirubin on special stain, which is also consistent with a bile duct leak. ??There is associated feathery degeneration of hepatocytes, which is mild. ??There is slight perivenular fibrosis, confirmed on trichrome ??stain, which was also seen on the previous biopsy ([id number]). ??There is no significant sinusoidal fibrosis. ??Iron stain shows an interval decrease in hepatocellular iron. ??Iron staining of Kupffer cells is now slightly more prominent. ??PAS-D stain also highlights Kupffer cells. ??The reticulin staining pattern is unchanged with minimal collapse or atrophy of zone 3 hepatocytes. ??This material has been reviewed by Dr. Sanders who concurs with this interpretation. Specimen B ?? Sections of the omentum show abundant necrosis, hemorrhage, and acute inflammation. ??Yellow-brown pigment is present but is negative with the bilirubin stain. ??A tissue Gram stain is negative. ??(DED/BC/lw) DIAGNOSIS ? DIAGNOSIS ?? A) LIVER, BIOPSY ? - CHANGES CONSISTENT WITH BILE LEAK (SEE MICROSCOPIC ? DESCRIPTION). ? - INTERVAL DECREASE IN HEPATOCELLULAR IRON. ? - NO EVIDENCE OF ACUTE REJECTION. ?B) OMENTUM, BIOPSY ? - ABUNDANT NECROSIS AND HEMORRHAGE WITH ACUTE ? INFLAMMATION. Founder Chairman And Chief Creative Officer ? Leeanna Pillai RESIDENT IN PATHOLOG Nuzhat Singh M.D. PATHOLOGIST ?Riley Maria M.D. ELECTRONICALLY RILEY LUNSFORD MISCELLANEOUS SAMPLES / Unknown 03/09/1999 11:30 AM CDT 03/10/1999 7:49 AM CDT Historical Provider LAB - PATHOLOGY/C YTOLOGY ORDERABLES [facility] PATH REPORT * GROSS + MICRO EXAM (03/03/1999 4:15 PM CDT) Result CASE NUMBER [id number] [facility] PATH REPORT Comment: ORDERING PHYSICIAN ??GARRY ORAT SPECIMEN TYPE ?Liver ([place]) Bx-Transplanted CLINICAL HISTORY ? The patient is a 4-year-old boy with liver failure who underwent a liver transplant. GROSS DESCRIPTION ? The specimen is received fresh in a single container labeled with the patient's name and A, transplanted liver biopsy, fresh . The specimen consists of a 1.3 x 0.1 cm in diameter cylindrical core of yellow-preston soft tissue with the gross appearance of liver. ??It is submitted in its entirety in a single cassette labeled A1 . The second portion of the specimen is received fresh from the operating room in a single container labeled with the patient's name and B, explanted liver donor #1 . ??The specimen consists of a single lobe of liver which has the gross appearance of the left lobe of an adult liver and weighs 375 grams. ??On the resected margin of the liver, there are multiple areas of cauterization and small sharee. ??The liver's texture is extremely limp. ??The capsule shows a blue-purple, mottled coloration. ??Dissection of the vessels at the margin of resection reveals no thrombosis. ??On cut section through the liver, the parenchyma is diffusely limp and has a mottled, preston to dark purple color. ??Animation Director portions from the liver are submitted in cassettes B1 , B2 , and B3 . ??Also submitted along with the liver in the same container is a black rubbery plastic cap. ??A 6 gram fragment of liver tissue is snap frozen for Dr. Hoskins. ?? (TATI/akn/ht) MICROSCOPIC DESCRIPTION ? A) 2 slides, H/E ??1 PAS ??1 Diastase ??1 Iron ??1 Bilirubin ??1 Reticulum ??1 Trichrome ??B) 6 slides, H/E Sections from the transplanted liver biopsy show liver tissue with many small collections of neutrophils within the lobules. There are occasional hepatocytes associated with these acute inflammatory cells. ??There is prominent cell membrane retraction of many hepatocytes and hypereosinophilia of the cytoplasm, particularly prominent around central veins. ??No viral inclusions are identified. ??The portal triads show no diagnostic abnormality. ??There is minimal endophlebitis of the central veins. ??There is moderate lipofuscin pigment in Kupffer cells. The trichrome stain shows a normal amount of fibrous tissue within the portal triads and no bridging fibrosis. ??The reticulum stain shows minimal collapse of the hepatocyte cords surrounding the central veins (zone 3). ??The PAS shows glycogenation of hepatocyte cytoplasm to a moderate degree. ??The diastase treated sections show moderate Kupffer cell retention of the PAS positive material. ??The iron stain shows 2-3+ positivity in the hepatocytes. ??The bilirubin stain is negative. ?? Sections from the explanted liver-Donor #1 show central vein structures with variable degrees of endophlebitis and necrosis of their abarca. ??Many lobules show recent hemorrhage centered around central veins with broad areas of bridging coagulative necrosis. No areas of inflammation are noted. ??The portal triads show recent hemorrhage around the blood vessels. ??(TATI/ht) DIAGNOSIS ? DIAGNOSIS ?A) LIVER, TRANSPLANTED, BIOPSY ?- HEPATOCYTE NECROSIS (SEE MICROSCOPIC ?DESCRIPTION). ?- INCREASED HEPATOCYTE IRON. ? B) LIVER, EXPLANTED DONOR #1, LIVER ?TRANSPLANTATION ?- BRIDGING ZONE 3 COAGULATIVE NECROSIS. Founder Chairman And Chief Creative Officer ? STAN DIXON RESIDENT IN PATHOLOG Sai Ware M.D. PATHOLOGIST ?Alejandro Bay M.D. ELECTRONICALLY BREEZY Alejandro Bay MISCELLANEOUS SAMPLES / Unknown 03/03/1999 4:15 PM CDT 03/04/1999 3:06 PM CDT Historical Provider LAB - PATHOLOGY/C YTOLOGY ORDERABLES [facility] PATH REPORT * GROSS + MICRO EXAM (03/02/1999 7:40 PM CDT) Result CASE NUMBER [id number] [facility] PATH REPORT Comment: ORDERING PHYSICIAN ??GARRY ORTA SPECIMEN TYPE ?Node-Hepatic CLINICAL HISTORY ? NOTE ?Specimens D, Liver, Biopsy-Transplanted and E, Liver-Explanted Donor #1 are not associated with this case. They were received separate and assessioned as case [id number]. Please refer to [id number] for information regarding these specimens. ?? The patient is a 4-year-old boy with liver failure who underwent a liver transplant. GROSS DESCRIPTION ? The specimens are received fixed in formalin in three containers for gross and microscopic examination. ??In the first container labeled A, hepatic node are two fragments of yellow-preston firm tissue measuring 0.7 x 0.4 x 0.2 cm and 0.7 x 0.5 x 0.5 cm. ??The specimens are entirely submitted as A1 . ?? In the next container labeled B, liver is a 22 x 14 x 7 cm in greatest dimension liver weighing approximately 516 grams. ??The liver is purple-esqueda, soft, and boggy. ??The capsule is smooth and free of deposits. ??On cut section, the parenchyma is red-orange, congested, and free of nodules. ??It is very soft. ??The hepatic vessels appear free of thrombosis. ??The ??intrahepatic bile ducts appear free of stones and sludge. ??The gallbladder is present and measures 6 x 1.5 x 1 cm. ??The wall thickness measures approximately 3 mm. ??It contains dark green viscid bile and no stones. ??The mucosa has a yellow-green, velvety appearance. ??The liver is serially sectioned and retail wireless sales representative sections are submitted in cassettes B1 through B6 . ??Animation Director sections of the gallbladder are submitted in cassette B7 . In the next container labeled C, section of jejunum is a 10 x 3.5 x 2.5 cm segment of bowel. ??Both surgical resection margins are stapled closed. ??The serosal surface is deep red, hemorrhagic, smooth, and glistening. ??A hematoma is present beneath the serosal surface. ??The lumen contains a small amount of preston mucoid material. The mucosal surface is yellow-pink to yellow-green and folded. ??The specimen is pinned and fixed flat prior to sectioning. ??After fixation, retail wireless sales representative sections are submitted in cassettes C1 through C2 . ?(CT/ht) MICROSCOPIC DESCRIPTION ? A) 2 slides, H/E ??B) 14 slides, H/E ??1 Trichrome ??C) 4 slides, H/E Sections from the hepatic node show lymph node tissue with expansion of the sinuses by histiocytes and lymphocytes. ?? Sections from the liver (chitina liver) show dense infiltration of the liver tissue by lymphoplasmacytoid cells. ??There is near total loss of the hepatocyte population and and dying hepatocytes are easily identified. ??There is moderate bile ductal proliferation. ??Hemorrhagic necrosis of the hepatic parenchyma is most prominent around the central veins, particularly in the periphery of the liver. ??There is prominent giant cell change throughout the parenchyma. ??Many of the remaining hepatocytes and/or bile ductal cells show enlarged and hyperchromatic nuclei with prominent nucleoli. ??No viral inclusions are identified. Sections of the gallbladder show no diagnostic alteration. ??Many central veins show endoplebitis. ??The trichrome stain shows loss of connective tissue architecture of the portal triads and central veins. ??Cirrhosis is not present. Sections from the jejunum show full thickness small intestinal mucosa with the morphology of jejunum. ??There is autolysis of the superficial epithelium. ??The margins of resection appear viable. There is an area of recent hemorrhage in the submucosa. ??There is also recent hemorrhage in the adjacent muscularis propria. ?? (TATI/ht) DIAGNOSIS ? DIAGNOSIS ?A) LYMPH NODE, HEPATIC, EXCISION ?- SINUS HISTIOCYTOSIS. ? B) LIVER, [place], EXPLANT ?- MASSIVE HEPATIC NECROSIS, ETIOLOGY ?UNDETERMINED. ?GALLBLADDER, [place], LIVER EXPLANT ?- NO PATHOLOGIC DIAGNOSIS. ? C) SMALL BOWEL, JEJUNUM, PARTIAL RESECTION ?- HEMORRHAGE (SEE MICROSCOPIC DESCRIPTION). Founder Chairman And Chief Creative Officer ? STAN DIXON RESIDENT IN PATHOLOG Sai Ware M.D. PATHOLOGIST ?Alejandro Bay M.D. ELECTRONICALLY BREEZY Alejandro Bay MISCELLANEOUS SAMPLES / Unknown 03/02/1999 7:40 PM CDT 03/03/1999 10:29 AM CDT Historical Provider LAB - PATHOLOGY/C YTOLOGY ORDERABLES [facility] PATH REPORT documented in this encounter Visit Diagnoses Not on filedocumented in this encounter Care Teams Photocomposing Machine Operator Relationship Specialty Start Date End Date Philip Gomez MD [address] [place] [address] PCP - General 11/15/09 07/09/10 Vilma Spangler MD [address] [place] [address] PCP - General 07/10/10 08/10/10 Philip Gomez MD [address] [place] [address] PCP - General 08/11/10 01/04/11 Vilma Spangler MD [address] [place] [address] PCP - General 01/05/11 documented as of this encounter
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
--- OUTSIDE RECORDS SUMMARY | 2024-10-28 05:58 | XMS_ITS | Encounter Summary ---
Author Organization [facility] Address [address] [facility] [place] [address] Care Team Providers Care Team Otr Truck Driver Name Role Phone Philip Gomez MD Primary Care Provider Reason for Visit * Reason Comments Infusion Encounter Details Date Type Department Care Team (Late st Contact Info) Description 09/23/2010 7:27 AM NEW CAR MAKE READY WORKER - 09/23/2010 11:59 PM NEW CAR MAKE READY WORKER Hospital Encounter [facility] at [address] [address] Philip Chavez MD [address] [place] [phone] Discharge Disposition: Home or Self Care Social [...] Reading Time Taken Comments Blood Pressure 102/52 09/23/2010 10:35 AM NEW CAR MAKE READY WORKER Pulse 70 09/23/2010 10:35 AM NEW CAR MAKE READY WORKER Temperature 36 ??C (96.8 ??F) 09/23/2010 7:31 AM NEW CAR MAKE READY WORKER Respiratory Rate 20 09/23/2010 10:3 5 AM NEW CAR MAKE READY WORKER Oxygen Saturation 98% 09/23/2010 7:31 AM NEW CAR MAKE READY WORKER Inhaled Oxygen Concentration - - Weight 53.6 kg (118 lb 2.7 oz) 09/23/2010 7:31 A M NEW CAR MAKE READY WORKER Height 169 cm (5' 6.54 ) 09/23/2010 7:31 AM NEW CAR MAKE READY WORKER Body Mass Index 18.77 09/23/2010 7:31 AM NEW CAR MAKE READY WORKER Body Mass Index Percentile 10.88% 09/23/2010 7:3 1 AM NEW CAR MAKE READY WORKER Growth Chart: [facility] (Boys, 2-2 0 Years) documented in this encounter Discharge Instructions * Discharge Instructions* Document, Scanned - 09/24/2010 8:19 AM NEW CAR MAKE READY WORKER documented in this encounter Medications at Time of Discharge Medication Sig Dispensed Refills Start Date End Date tacrolimus (PROGRAF) 1 MG capsule Take 1 mg by mouth 2 times daily. 03/14/2012 documented as of this encounter Progress Notes * Papo Mcgrath RN - 09/23/2010 2:19 PM CST Pt arrived in clinic, triaged, and assessed by RN. PIV #24 inserted into LAC without difficulty andlabs obtained. NS flushes easily. Premeds given prior to infusion. IVIG infusion started and titrated per orders. Examined per Dr Malloy. Infusion completed without difficulty and VSS throughout. Pt tolerated well. PIV d/c'd intact per Narendra Trotter RN. Discharge instructions given to pt to RTC in 4 weeks. Pt d/c'd home ambulatory with sister. CAR MAKE READY WORKER * Cindi Malloy MD - 09/23/2010 10:24 AM CST Hematology/Oncology Progress/Admission Note 09/23/2010 Beka Nichols PCP: Philip Gomez MD Diagnosis: Autoimmune hepatitis s/p cadaveric liver transplant 1998; autoimmune cytopenias Protocol/Regimen: Tacrolimus, IVIG replacement No Known Allergies Current outpatient prescriptions Medication [...] 650 mg Oral Once Philip Chavez MD ??? dextrose 5 % infusion Intravenous Once Cindi Malloy MD Facility-Administered Medications Ordered in Other Encounters Medication Dose Route Frequency Provider Last Rate Last Dose ??? acetaminophen (TYLENOL) tablet 650 mg 650 mg Oral Once Philip Chavez MD ??? immune globulin (human) (GAMMAGARD;GAMUNEX;PRIVIGEN) 10 % infusion 20 g 20 g Intravenous Once Philip Chavez MD ??? diphenhydrAMINE (BENADRYL) tablet 50 mg 50 mg Oral Once Philip Chavez MD Home medications reviewed and all medications taken [...] no 13) Nutritional Status good Interval History Has been doing well. Denies recent fevers, URI symptoms, bruising/mucosal bleeding. Tolerates IVIG without complications. 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 Has been on tacrolimus. H/o autoimmune cytopenias noted in last 2 yrs. Received Rituxan in October 2009. Currently on IVIG replacement. Family Medical History: Grandparents with h/o lung cancer. Mom had h/o colon cancer. Physical Exam Constitutional: BP 106/56 Pulse 70 Temp 96.8 ??F Resp 18 Ht 1.69 m (5' 6.54 ) Wt 53.6 kg (118 lb 2.7 oz) SpO2 98% BSA (Calculated): 1.59 General Appearance: No acute distress Head: No nasal congestion or discharge Skin: no rashes, bruises, or petechiae Ears: tympanic membranes normal with scars b/l secondary to myringotomy tube placement in the past Eyes: anicteric: pupils equal, round, reactive to light; intact extra-ocular movements Mouth/throat: no sores, erythema, exudates, or mucosal pallor. Tonsils not enlarged. Neck: supple without masses Lymph nodes: no palpable lymphadenopathy Chest: lungs clear to auscultation Heart: normal S1 and S2, no murmur Abdomen: soft, non-tender Genitalia: deferred Neuro: grossly nonfocal Lab and/or Imaging Studies Recent Results (from the past 12 hour(s)) BILIRUBIN DIRECT Collection Time 09/23/10 7:00 AM Component Value Range ??? Bili Conj Direct ND 0.0 - 0.3 (mg/dl) GGT Collection Time 09/23/10 8:10 AM Component Value Range ??? GGT 29 11 - 31 (Units/L) COMPREHENSIVE METABOLIC PANEL Collection Time 09/23/10 8:20 AM Component Value Range ??? Sodium 142 137 - 145 (mmol/L) ??? Potassium 4.2 3.5 - 5.1 (mmol/L) ??? Chloride 105 98 - 107 (mmol/L) ??? CO2 26.2 22 - 30 (mmol/L) ??? Glucose 91 70 - 106 (mg/dl) ??? BUN 15.1 8 - 21 (mg/dl) ??? Calcium 9.3 8.9 - 10.7 (mg/dl) ??? Bili Total 0.7 0.6 - 1.4 (mg/dl) ??? Protein Total 7.3 6.3 - 8.6 (gm/dl) ??? Albumin 4.8 3.7 - 5.6 (gm/dl) ??? ALT/SGPT 56 (*) 10 - 40 (Units/L) ??? AST/SGOT 42 10 - 45 (Units/L) ??? Alk Phos 128 65 - 260 (Units/L) ??? Creatinine 0.79 0.50 - 1.06 (mg/dl) IGG BLOOD Collection Time 09/23/10 8:20 AM Component Value Range ??? IgG 628 (*) 639 - 1349 (mg/dl) CBC W MANUAL DIFFERENTIAL Collection Time 09/23/10 8:20 AM Component Value Range ??? WBC 7.07 4.5 - 11.0 (K/cumm) ??? RBC 5.16 4.50 - 5.30 (mill/cumm) ??? Hgb 16.8 (*) 13.0 - 16.0 (gm/dl) ??? Hct 45.6 37.0 - 49.0 (%) ??? MCV 88.4 78.0 - 98.0 (cu microns) ??? MCH 32.6 25.0 - 35.0 (uug) ??? MCHC 36.8 31.0 - 37.0 (%) ??? RDW 12.6 (%) ??? MPV 10.2 (fl) ??? Plt Ct K/CUMM 206 100 - 400 (K/cumm) ??? Manual Diff Comment Done ??? Band Manual 1 (%) ??? Seg Manual 76 31 - 78 (%) ??? Lymph Manual 3 (*) 13 - 54 (%) ??? [place] Manual 5 4 - 13 (%) ??? Eos Manual 3 0 - 8 (%) ??? Atyp Lymph Manual 12 (%) ??? RBC Morph Few aniso. MAGNESIUM BLOOD Collection Time 09/23/10 8:20 AM Component Value Range ??? Magnesium mg/dL 1.8 1.6 - 2.3 (mg/dl) Procedures Venepuncture/line placement. Assessment 15 yo with h/o liver transplant for auto-immune hepatitis in 1998, followed by Hematology for auto-immune cytopenias thought to be secondary to Tacrolimus. Blood counts stable apart from mild polycythemia. Here for IVIG replacement. Plan IVIG 20 gms IV. Premed : tylenol, benadryl. Should consider doing lymphocyte subsets at next visit. Will discuss PJP prophylaxis with [facility] Office Supervisor Dr Chavez, in view of persistent lymphopenia. Follow-Up Return in 4 weeks for IVIG. CAR MAKE READY WORKER documented in this encounter Miscellaneous Notes * Miscellaneous Scans - Document, Scanned - 10/29/2010 9:04 PM NEW CAR MAKE READY WORKER * Miscellaneous Scans - Document, Scanned - 10/29/2010 3:32 PM NEW CAR MAKE READY WORKER documented in this encounter Plan of Treatment Scheduled Orders Name Type Priority Associated Diagnoses Orde r Schedule HEPATIC FUNCTION PANEL Lab Routine Liver transplant ONCE for 1 Occurrences starting 09/23/2010 until 09/23/2010 CBC W AUTO DIFFERENTIAL Lab Routine Liver transplant ONCE for 1 Occurrences starting 09/23/2010 until 09/23/2010 GLUCOSE Lab Routine Liver transplant ONCE for 1 Occurrences starting 09/23/2010 until 09/23/2010 LYTES (NA K CL CO2) BLOOD Lab Routine Liver transplant ONCE for 1 Occurrences starting 09/23/2010 until 09/23/2010 BUN Lab Routine Liver transplant ONCE for 1 Occurrences starting 09/23/2010 until 09/23/2010 CREATININE BLOOD Lab Routine Liver transplant ONCE for 1 Occurrences starting 09/23/2010 until 09/23/2010 GGT Lab Routine Liver transplant ONCE for 1 Occurrences starting 09/23/2010 until 09/23/2010 TACROLIMUS LEVEL Lab Routine Liver transplant ONCE for 1 Occurrences starting 09/23/2010 until 09/23/2010 JOSE-BAR VIRUS PCR QUANTITATIVE BLOOD Lab Routine Liver transplant ONCE for 1 Occurrences starting 09/23/2010 until 09/23/2010 MAGNESIUM BLOOD Lab Routine Liver transplant ONCE for 1 Occurrences starting 09/23/2010 until 09/23/2010 CBC W MANUAL DIFFERENTIAL Lab [facility] Neutropenia associated with autoimmune disease (HCC) ONCE for 1 Occurrences starting 09/23/2010 until 09/23/2010 IGG BLOOD Lab [facility] Hypogammaglobulinemia (HCC) ONCE for 1 Occurrences starting 09/23/2010 until 09/23/2010 COMPREHENSIVE METABOLIC PANEL Lab [facility] Neutropenia associated with autoimmune disease (HCC) ONCE for 1 Occurrences starting 09/23/2010 until 09/23/2010 JOSE-BAR VIRUS PCR QUANTITATIVE BLOOD Lab Routine Neutropenia associated with autoimmune disease (HCC) ONCE for 1 Occurrences starting 09/23/2010 until 09/23/2010 documented as of this encounter Visit Diagnoses Diagnosis Liver transplant Liver replaced by transplant Hypogammaglobulinemia (HCC) Hypogammaglobulinaemia, unspecified Neutropenia associated with autoimmune disease (HCC) Other neutropenia documented in this encounter Care Teams Team Otr Truck Driver Relationship Specialty Start Date End Date Philip Gomez MD [address] [place] [address] PCP - General 08/11/10 01/04/11 documented as of this encounter
--- OUTSIDE RECORDS SUMMARY | 2024-10-28 05:58 | XMS_ITS | Encounter Summary ---
Author Organization [facility] Address [address] [place] [address] Care Team Providers Care Drill Press Hand Name Role Phone Vilma Spangler MD Primary Care Provider Encounter Details Date Type Department Care Team (Latest Contact Info) Description 04/29/2011 6:45 AM CDT - 04/29/2011 11:59 PM CDT Hospital Encounter [facility] at [address] [phone] Discharge Disposition: Home or Self Care Social [...] Sign Reading Time Taken Comments Blood Pressure 92/50 04/29/2011 10:41 AM CDT Pulse 62 04/29/2011 10:41 AM CDT Temperature 36.6 ??C (97.8 ??F) 04/29/2011 1 0:41 AM CDT Respiratory Rate 16 04/29/2011 10:4 1 AM CDT Oxygen Saturation 97% 04/29/2011 7:00 AM CDT Inhaled Oxygen Concentration - - Weight 52.9 kg (116 lb 10 oz) 04/29/2011 7:00 AM CDT Height 169.2 cm (5' 6.61 ) 04/29/2011 7:00 AM CD T Body Mass Index 18.48 04/29/2011 7:00 AM CDT Body Mass Index Percentile 5.85% 04/29/2011 7:0 0 AM CDT Growth Chart: CDC (Boys, 2-2 0 Years) documented in this encounter Discharge Instructions * Discharge Instructions* Document, Scanned - 05/01/2011 7:55 AM CDT documented in this encounter Medications at Time of Discharge Medication Sig Dispensed Refills Start Date End Date tacrolimus (PROGRAF) 1 MG capsule Take 1 mg by mouth 2 times daily. 03/14/2012 documented as of this encounter Progress Notes * Philip Chavez MD - 04/30/2011 1:54 PM CDT Hematology/Oncology Progress Note 04/29/2011 Beka Nichols PCP: Vilma Spangler MD Diagnosis: Autoimmune Thrombocytopenia/Autoimmune Neutropenia Interval History: Patient with excellent response to Rituximab with normal counts for last year. 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 Clinically well. Feeling well. ANClow at last visit. EBV PCR recently positive but below limits of quantification. Beka has no complaints today. 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 He is enjoying spending time out doors this summer. No Known Allergies Current Outpatient Prescriptions Medication [...] no 10) Psych School Grade Senior in HS this year. Behavior: no Other: no 11) Allergy/Immun no 12) Pain no 13) Nutritional Status good Past Medical History: unchanged Family Medical History: unchanged Social History: Living at home with parents, sibs. Working at [employer]. Physical Exam (Unchanged since 03/24/2011) Constitutional: BP 92/50 Pulse 62 Temp 97.8 ??F Resp 16 Ht 1.692 m (5' 6.61 ) Wt 52.9 kg (116 lb 10 oz) BMI 18.48 kg/m2 SpO2 97% BSA (Calculated): 1.58 General Appearance: [...] hour(s)) CBC W MANUAL DIFFERENTIAL Collection Time 04/29/11 8:16 AM Component Value Range WBC 7.43 4.5 - 11.0 (K/cumm) RBC 5.29 4.50 - 5.30 (mill/cumm) Hgb 17.2 (*) 13.0 - 16.0 (gm/dl) Hct 47.4 37.0 - 49.0 (%) MCV 89.6 78.0 - 98.0 (cu microns) MCH 32.5 25.0 - 35.0 (uug) MCHC 36.3 31.0 - 37.0 (%) RDW 13.[address] K/CUMM 202 100 - 400 (K/cumm) Manual Diff Comment Done Band Manual 1 Seg Manual 65 31 - 78 (%) Lymph Manual 16 13 - 54 (%) [place] Manual 7 4 - 13 (%) Eos Manual 4 0 - 8 (%) Atyp Lymph Manual 7 RBC Morph Slight Rouleaux JOSE-BAR VIRUS PCR QUALITATIVE BLOOD Collection Time 04/29/11 8:16 AM Component Value Range EBV PCR NO EBV DNA Detected Not Detected EBV PCR Comment HEPATIC FUNCTION PANEL Collection Time 04/29/11 8:16 AM Component Value Range Bili Total 0.5 (*) 0.6 - 1.4 (mg/dl) Bili Conj Direct ND 0.0 - 0.3 (mg/dl) Protein Total 6.6 6.3 - 8.6 (gm/dl) Albumin 4.4 3.7 - 5.6 (gm/dl) ALT/SGPT 30 10 - 40 (Units/L) AST/SGOT 30 10 - 45 (Units/L) Alk Phos 96 65 - 260 (Units/L) Assessment 1. Autoimmune Thrombocytopenia/Neutropenia: Related to watermaster immune suppression with tacrolimusand EBV reactivation. Ultimately treated with Rituximab in late 2008. Normal counts for last year approximately. EBV PCR now negative after two months of low positive results. ANC much improved after dropping last month. Patient asymptomatic 2. Immune suppression: Patient on chronic tacrolimus for liver transplant. 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 IVIG held three months ago secondary to normal values and overall excellent clinical presentation. T and B cell subsets with low CD4 count for unexplained reasons.Repeat CD4 count with improved absolute numbers compared to values obtained earlier this year. Clini lacey well without infectious issues. IgG decreased now. LFTs unremarkable. Plan 1. CBC 2. IVIG 500 mg/kg today with Tylenol/Benadryl premed 3. Repeat EBV PCR sent (see above) 4. RTC in 1 month for IVIG 5. GI Transplant service to see today. * Dann Robles RN - 04/29/2011 11:23 AM CDT Pt to clinic in good spirits. VSS, pt denies complaints since last visit. Dr Chavez in to see pt, PIV started, blood sent to lab. Pre-meds given, Ivig infused to PIV without difficulty, pt tolerated well. Follow up made and verbalized by pt, left in self care documented in this encounter Procedure Notes * Document, Scanned - 05/21/2011 1:48 PM CDTAssociated Order(s): LAB RESULTS ORDER documented in this encounter Consult Notes * Houston Chao MD - 04/29/2011 4:10 PM CDT GASTROENTEROLOGY CONSULT Houston Chao MD 04/29/2011 Patient's Primary Care Physician: Vilma Spangler MD Reason for consultation: folllow up post liver transplantation Name: Beka Nichols Age: 16 y.o. Sex: male Dr Esparza: I had the pleasure [facility]. 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 He has been follow by Dr Chavez for autoimmune thrombocytopenia and autoimmune neutropenia. The cytopenias are thought to be tacrolimus induced. Patient has been receiving monthly infusions of IV IG. Platelets has been above 200.000 during . Beka is [facility]. Current Outpatient Prescriptions Medication Sig Dispense Refill ??? tacrolimus (PROGRAF) 1 MG capsule Take 1 mg by mouth 2 times daily. Current Facility-Administered Medications Medication Dose Route Frequency Provider Last Rate Last Dose ??? immune globulin (human) (GAMMAGARD;GAMUNEX;PRIVIGEN) 10 % infusion 25 g 0.5 g/kg Intravenous Once Philip Chavez MD 25 g at 04/29/11 0839 ??? acetaminophen (TYLENOL) tablet 500 mg 500 mg Oral Once Philip Chavez MD 500 mg at 04/29/11 0841 ??? diphenhydrAMINE (BENADRYL) tablet 50 mg 50 mg Oral Once Philip Chavez MD 50 mg at 04/29/11 0841 Component Name 04/29/11 0816 03/24/11 0750 02/17/11 0800 WBC 7.43 2.53* 6.54 HGB 17.2* 15.6 16.1* HCT 47.4 41.8 44.8 PLTCOUNT 202 217 188 Component Name 04/29/11 0816 03/24/11 0750 01/05/11 0815 10/21/10 0810 ALBUMIN 4.4 3.8 4.1 -- ALKPHOS 96 105 107 -- ALT 30 18 46* -- AST 30 31 35 -- TBIL 0.5* 0.5* 0.5* -- DBIL ND ND -- ND TPROT 6.6 6.3 7.2 -- No Known Allergies Past Medical History Diagnosis Date ??? ITP (idiopathic thrombocytopenic purpura) ??? Platelet disorder Past Surgical History Procedure Date ??? Liver transplant x 2 1998 Family History Problem Relation Age of Onset ??? Cancer Mother ??? Diabetes Sister ??? Cancer Maternal Grandmother ??? Cancer Maternal Grandfather ??? Hypertension Paternal Grandmother ??? Rheumatological Disease Paternal Grandfather Body mass index is 18.48 kg/(m^2). Exam Vitals: 04/29/11 0700 04/29/11 0920 04/29/11 0957 04/29/11 1041 BP: 80/58 90/48 90/50 92/50 Pulse: 64 58 60 62 Temp: 98.2 ??F 98.6 ??F 98 ??F 97.8 ??F Resp: 16 16 18 16 Weight: 52.9 kg (116 lb 10 oz) SpO2: 97% GENERAL: no acute distress, alert SKIN: no rash HEENT: normal NECK: supple LUNGS: clear to auscultation bilaterally HEART: no murmur, S1 S2 ABDOMEN: soft, non-tender, non-distended, no mass is palpable. Scar intact. NEURO: Alert, oriented x 3 ASSESSMENT/PLAN 16 years old teenager 10 years s/p cadaveric liver retransplantation for fulminant nonpalpable hepatitis/hepatic artery thrombosis. Immune thrombocytopenia/neutropenia. I am glad he is doing so well. Next month we will do a Tacrolimus level (goal 2-4). Dose & frequency of IV IG per Dr Chavez. Liver panels Q 3-4 months. Please call me if you have questions. Sincerely documented in this encounter Miscellaneous Notes * Miscellaneous Scans - Document, Scanned - 07/20/2011 8:20 PM CDT documented in this encounter Plan of Treatment Not on file documented as of this encounter Procedures Procedure Name Priority Date/Time Associated Diagnosis Comments LAB RESULTS ORDER 05/21/2011 1:4 8 PM CDT JOSE-DE LA CRUZ VIRUS PCR QUALITATIVE Routine 04/29/2011 8:16 AM CDT Hypogammaglobulinem ia (HCC) CBC W MANUAL DIFFERENTIAL Timed 04/29/2011 8:16 AM CDT Hypogammaglobulinem ia (HCC) HEPATIC FUNCTION PANEL Routine 04/29/2011 8:16 AM CDT Hypogammaglobulinem ia (HCC) documented in this encounter Results * LAB RESULTS ORDER (05/21/2011 1:48 PM CDT) Narrative Procedure Note Document, Scanned - 05/21/2011 1:48 PM CDT Scanned Document LAB - THERAPEUTIC DR MCCLELLAN MONITORING ORDERABLES * (ABNORMAL) HEPATIC FUNCTION PANEL (04/29/2011 8:16 AM CDT) Bilirubin Total 0.5(L) 0.6 - 1.4 mg/dl [facility] Bilirubin Direct ND 0.0 - 0.3 mg/dl [facility] Protein Total 6.6 6.3 - 8.6 gm/dl [facility] Albumin 4.4 3.7 - 5.6 gm/dl [facility] ALT 30 10 - 40 Units/L [facility] AST 30 10 - 45 Units/L [facility] Alkaline Phosphatase 96 65 - 260 Units/L [facility] BLOOD SPECIMEN / Unknown 04/29/2011 8:16 AM CDT 04/29/2011 8:16 AM CDT Philip Chavez MD LAB - CHEMISTRY O RDERABLES [facility] [address] [place] [address] * JOSE-BAR VIRUS PCR QUALITATIVE BLOOD (04/29/2011 8:16 AM CDT) [facility] Signature Jose-De La Cruz Virus PCR NO EBV DNA Detected Not Detected [facility] Comment EBV PCR [facility] Comment: This assay has [...] ??EBV levels can vary by speimen type: [facility] uses whole blood which is more [...] clinical laboratory testing. BLOOD SPECIMEN / Unknown 04/29/2011 8:16 AM CDT 04/29/2011 8:16 AM CDT Philip Chavez MD LAB - MICROBIOLOG Y ORDERABLES Performing Organization Address [facility] de Phone Number [facility] [address] [place] [address] * (ABNORMAL) CBC W MANUAL DIFFERENTIAL (04/29/2011 8:16 AM CDT) WBC 7.43 4.5 - 11.0 K/cumm [facility] RBC 5.29 4.50 - 5.30 mill/cumm [facility] Hemoglobin 17.2(H) 13.0 - 16.0 gm/dl [facility] Hematocrit 47.4 37.0 - 49.0 % [facility] MCV 89.6 78.0 - 98.0 cu microns [facility] MCH 32.5 25.0 - 35.0 uug [facility] MCHC 36.3 31.0 - 37.0 % [facility] RDW 13.1 % [facility] MPV 10.7 fl [facility] Platelet Count 202 100 - 400 K/cumm [facility] Comment Manual Diff Done [facility] Band % Manual 1 % [facility] Neutrophils % Manual 65 31 - 78 % [facility] Lymphocytes % Manual 16 13 - 54 % [facility] Monocytes % Manual 7 4 - 13 % [facility] Eosinophils % Manual 4 0 - 8 % [facility] Atypical Lymphocyte % Manual 7 % [facility] RBC Morphology Slight Rouleaux [facility] BLOOD SPECIMEN / Unknown 04/29/2011 8:16 AM CDT 04/29/2011 8:16 AM CDT Philip Chavez MD LAB - HEMATOLOGY ORDERABLES Performing Organization Address [facility] Co de Phone Number [facility] [address] [place] [address] documented in this encounter Visit Diagnoses Diagnosis Hypogammaglobulinemia (HCC) Hypogammaglobulinaemia, unspecified documented in this encounter Administered Medications Inactive Administered Medications - up to 3 most recent administrations Medication Order MAR Action Action Date Dose Rate Site acetaminophen (TYLENOL) tablet 500 mg 500 mg, Oral, ONCE, 1 dose, On Wed04/29/11 at 0915, Maximum allowable Acetaminophen amount = 4 Grams (4000 mg) / 24 hours. $ Given 04/29/2011 8:41 AM CDT 500 mg diphenhydrAMINE (BENADRYL) tablet 50 mg 50 mg, Oral, ONCE, 1 dose, On Wed04/29/11 at 0815 $ Given 04/29/2011 8:41 AM CDT 50 mg immune globulin (human) (GAMMAGARD;GAMUNEX;PRIVIGEN) 10 % infusion 25 g 25 g (0.5 g/kg ? 52.9 kg), Intravenous, ONCE, 1 dose, On Wed04/29/11 at 0930 $ Given 04/29/2011 8:39 AM CDT 25 g documented in this encounter Care Teams Drill Press Hand Relationship Specialty Start Date End Date Vilma Spangler MD [address] [address] PCP - General 01/05/11 documented as of this encounter
--- OUTSIDE RECORDS SUMMARY | 2024-10-28 05:58 | XMS_ITS | Encounter Summary ---
Author Organization [facility] Address [address] [place] [address] Care Team Providers Care Insights Manager Name Role Phone Philip Gomez MD Primary Care Provider Reason for Visit * Reason Onset Date Comments Insurance Issue/question 10/14/2010 Encounter Details Date Type Department Care Team (Late st Contact Info) Description 10/14/2010 Telephone [facility] - Transplant Services [facility] [place] [address] Georgiana Lyons RN Insurance Issue/question Social History Tobacco Use Types Packs/Day Years [...] encounter Miscellaneous Notes * Telephone Encounter - Georgiana Lyons RN - 10/14/2010 4:39 PM RUST PROOFER Georgiana from [employer] called and indicated this is a covered benefit. Pt must use [facility] in [place]. [phone]. S/w Brooklynn reminded to call Georgiana for benefit structure and advised of need for utilization of specific pharmacy. Brooklynn voiced understanding. Rx called into [facility]. PROOFER * Telephone Encounter - Georgiana Lyons RN - 10/14/2010 1:52 PM RUST PROOFER Rec'd call from [facility] in [place], [place] re: need to authorize Prograf with new insurance under Local [employer] union ([facility]). Called omar/CE[facility] [phone]. They indicated it is not a covered benefit would need to contact the local for override request. Called Georgiana at the [facility] Health[facility] Welfare office [phone] who indicated it would be covered under the major medical coverage if approved-need LOMN with meds requested. Letter preped and faxed to Georgiana at [phone]. Per Georgiana s/w mom (Brooklynn) and requested she call Georgiana to be educated re: expected OOP expenses. Signed Beka up for Prograf Value Card. Spoke with Tod at pharmacy Prograf is $67 weekly to pay out of po [employer] retail. Left VM update for Brooklynn will send value card in the mail. PROOFER documented in this encounter Plan of Treatment Not on file documented as of this encounter Visit Diagnoses Not on filedocumented in this encounter Care Teams Insights Manager Relationship Specialty Start Date End Date Philip Gomez MD [address] [place] [address] PCP - General 08/11/10 01/04/11 documented as of this encounter
--- OUTSIDE RECORDS SUMMARY | 2024-10-28 05:58 | XMS_ITS | Encounter Summary ---
Author Organization [facility] Address [address] [place] [address] Care Team Providers Care Alberene Stone Setter Name Role Phone Philip Gomez MD Primary Care Provider Reason for Visit * Reason Onset Date Comments Requesting Labs 04/28/2010 Encounter Details Date Type Department Care Team (Late st Contact Info) Description 04/28/2010 Telephone [facility] - Transplant Services [address] [place] [address] Marisel Law RN Requesting Labs Social History Tobacco Use Types Packs/Day Years Used Date Smoking Tobacco: Never Alcohol Use Standard Drinks/Week Comments No 0 (1 standard drink = 0.6 oz pur e alcohol) Sex and Gender Information Value Date Recorded Sex Assigned at Not on file Gender Identity Not on file Sexual Orientation Not on file documented as of this encounter Miscellaneous Notes * Telephone Encounter - Marisel Law RN - 04/28/2010 11:07 AM CDT Spoke with Brooklynn to let her know that Beka is due for labs. She said that he has a scheduled appointment to see Dr. Padron and DESI on May 13 at 0800 and was wondering if he could get his labs then. Told her that would be fine and that the orders we wanted would be in epic for that day. documented in this encounter Plan of Treatment Not on file documented as of this encounter Visit Diagnoses Not on filedocumented in this encounter Care Teams Alberene Stone Setter Relationship Specialty Start Date End Date Philip Gomez MD [address] [place] [address] PCP - General 11/15/09 07/09/10 documented as of this encounter
--- OUTSIDE RECORDS SUMMARY | 2024-10-28 05:58 | XMS_ITS | Encounter Summary ---
Author Organization [facility] Address [address] [facility] [place] [address] Care Team Providers Care Cabinetmaker Helper Name Role Phone Philip Gomez MD Primary Care Provider Encounter Details Date Type Department Care Team (Latest Contact Info) Description 06/10/2010 7:57 AM CDT - 06/10/2010 11:59 PM CDT Hospital Encounter [facility] at [address] [phone] Discharge Disposition: Home or Self Care Social [...] Reading Time Taken Comments Blood Pressure 90/60 06/10/2010 8:00 AM CDT Pulse 56 06/10/2010 8:00 AM CDT Temperature 36.2 ??C (97.2 ??F) 06/10/2010 8:00 AM CD T Respiratory Rate 20 06/10/2010 8:00 AM CDT Oxygen Saturation 97% 06/10/2010 8:00 AM CDT Inhaled Oxygen Concentration - - Weight 53.1 kg (117 lb 1 oz) 06/10/2010 8:00 AM CDT Height 169 cm (5' 6.54 ) 06/10/2010 8:00 AM CDT Body Mass Index 18.59 06/10/2010 8:00 AM CDT Body Mass Index Percentile 10.72% 06/10/2010 8:0 0 AM CDT Growth Chart: CDC (Boys, 2-2 0 Years) documented in this encounter Medications at Time of Discharge Medication Sig Dispensed Refills Start Date End Date tacrolimus (PROGRAF) 1 MG capsule Take 1 mg by mouth 2 times daily. 03/14/2012 documented as of this encounter Progress Notes * Lisandra Simmons RN - 06/10/2010 9:35 AM CDT Patient in clinic for scheduled lab draw and possible IVIG. Patient triaged and assessed by RN. No problems or concerns at present time. #22 started to left AC without problems. Blood obtained from IV and sent to lab. Lab results reviewed with MD and patient instructed to return to clinic or outside lab and have labs drawn in one month. Mom will call with number for [facility] to set up order for labs to be drawn there. documented in this encounter Miscellaneous Notes * Miscellaneous Scans - Document, Scanned - 07/03/2010 7:56 PM CDT documented in this encounter Plan of Treatment Not on file documented as of this encounter Procedures Procedure Name Priority Date/Time Associated Diagnosis Comments CBC W MANUAL DIFFERENTIAL ZAHRA 06/10/2010 8:10 AM CDT Neutropenia Associated with Autoimmune Disease (HCC) COMPREHENSIVE METABOLIC PANEL ZAHRA 06/10/2010 8:10 AM CDT Neutropenia Associated with Autoimmune Disease (HCC) IGG BLOOD STAT 06/10/2010 8:10 AM CDT Neutropenia Associated with Autoimmune Disease (HCC) documented in this encounter Results * IGG BLOOD (06/10/2010 8:10 AM CDT) IgG 851 639 - 1349 mg/dl [facility] BLOOD SPECIMEN / Unknown 06/10/2010 8:10 AM CDT 06/10/2010 8:24 AM CDT Philip Chavez MD LAB - CHEMISTRY O RDERABLES [facility] [facility] [place] [address] * (ABNORMAL) COMPREHENSIVE METABOLIC PANEL (06/10/2010 8:10 AM CDT) Sodium 143 137 - 145 mmol/L [facility] Potassium 4.4 3.5 - 5.1 mmol/L [facility] Chloride 105 98 - 107 mmol/L [facility] CO2 27.4 22 - 30 mmol/L [facility] Glucose 57(L) 70 - 106 mg/dl [facility] BUN 11.9 8 - 21 mg/dl [facility] Calcium 9.5 8.9 - 10.7 mg/dl [facility] Bilirubin Total 0.7 0.6 - 1.4 mg/dl [facility] Protein Total 7.6 6.3 - 8.6 gm/dl [facility] Albumin 4.7 3.7 - 5.6 gm/dl [facility] ALT 24 10 - 40 Units/L [facility] AST 36 10 - 45 Units/L [facility] Alkaline Phosphatase 122 65 - 260 Units/L [facility] Creatinine 0.91 0.50 - 1.06 mg/dl [facility] BLOOD SPECIMEN / Unknown 06/10/2010 8:10 AM CDT 06/10/2010 8:24 AM CDT Philip Chavez MD LAB - CHEMISTRY O RDERABLES Performing Organization Address City/State/[facility] Co de Phone Number [facility] [address] [place] [address] * (ABNORMAL) CBC W MANUAL DIFFERENTIAL (06/10/2010 8:10 AM CDT) WBC 6.66 4.5 - 11.0 K/cumm [facility] RBC 5.53(H) 4.50 - 5.30 mill/cumm [facility] Hemoglobin 17.7(H) 13.0 - 16.0 gm/dl [facility] Hematocrit 47.3 37.0 - 49.0 % [facility] MCV 85.5 78.0 - 98.0 cu microns [facility] MCH 32.0 25.0 - 35.0 uug [facility] MCHC 37.4(H) 31.0 - 37.0 % [facility] RDW 12.8 % [facility] MPV 10.5 fl [facility] Platelet Count 217 100 - 400 K/cumm [facility] Comment Manual Diff Done [facility] Band % Manual 1 % [facility] Neutrophils % Manual 63 31 - 78 % [facility] Lymphocytes % Manual 15 13 - 54 % [facility] Monocytes % Manual 12 4 - 13 % [facility] Eosinophils % Manual 3 0 - 8 % [facility] Atypical Lymphocyte % Manual 6 % [facility] RBC Morphology Slight Anisocytosis, Poikylocytosis [facility] BLOOD SPECIMEN / Unknown 06/10/2010 8:10 AM CDT 06/10/2010 8:24 AM CDT Philip Chavez MD LAB - HEMATOLOGY ORDERABLES Performing Organization Address City/State/[facility] Co de Phone Number [facility] [address] [place] [address] documented in this encounter Visit Diagnoses Diagnosis Neutropenia associated with autoimmune disease (HCC) Other neutropenia documented in this encounter Care Teams Cabinetmaker Helper Relationship Specialty Start Date End Date Philip Gomez MD [address] [place] [address] PCP - General 11/15/09 07/09/10 documented as of this encounter
--- OUTSIDE RECORDS SUMMARY | 2024-10-28 05:58 | XMS_ITS | Encounter Summary ---
Author Organization [facility] Address [address] [place] [address] Care Team Providers Care Healthcare Receptionist Name Role Phone Philip Gomez MD Primary Care Provider Encounter Details Date Type Department Care Team (Latest Contact Info) Description 09/23/2010 6:43 AM UNDERWATER WELDER - 09/23/2010 11:59 PM UNDERWATER WELDER Hospital Encounter [facility] at [address] [address] Cindi Malloy MD [address] [place] [phone] Hematology Discharge Disposition: Home or Self Care [...] - Inhaled Oxygen Concentration - - Weight 53.6 kg (118 lb 2.7 oz) 09/23/2010 8:00 A M UNDERWATER WELDER Height - - Body Mass Index 18.77 09/23/2010 7:31 AM UNDERWATER WELDER Body Mass Index Percentile 10.88% 09/23/2010 8:0 0 AM UNDERWATER WELDER Growth Chart: CDC (Boys, 2-2 0 Years) documented in this encounter Medications at Time of Discharge Medication Sig Dispensed Refills Start Date End Date tacrolimus (PROGRAF) 1 MG capsule Take 1 mg by mouth 2 times daily. 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) IGG BLOOD Timed 09/23/2010 8:20 AM UNDERWATER WELDER 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) TACROLIMUS LEVEL Routine 09/23/2010 8:10 AM UNDERWATER WELDER 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) JOSE-DE LA CRUZ VIRUS PCR QUANT BLOOD/CSF Routine 09/23/2010 8:10 AM UNDERWATER WELDER 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) GGT Routine 09/23/2010 8:10 AM UNDERWATER WELDER 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) BILIRUBIN DIRECT Timed 09/23/2010 7:00 AM UNDERWATER WELDER 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) documented in this encounter Results * MAGNESIUM BLOOD (09/23/2010 8:20 AM UNDERWATER WELDER) Magnesium 1.8 1.6 - 2.3 mg/dl [facility] BLOOD SPECIMEN / Unknown 09/23/2010 8:20 AM UNDERWATER WELDER 09/23/2010 8:20 AM UNDERWATER WELDER Philip Chavez MD LAB - CHEMISTRY O RDERABLES [facility] [address] [place] [address] * (ABNORMAL) CBC W MANUAL DIFFERENTIAL (09/23/2010 8:20 AM UNDERWATER WELDER) WBC 7.07 4.5 - 11.0 K/cumm [facility] RBC 5.16 4.50 - 5.30 mill/cumm [facility] Hemoglobin 16.8(H) 13.0 - 16.0 gm/dl [facility] Hematocrit 45.6 37.0 - 49.0 % [facility] MCV 88.4 78.0 - 98.0 cu microns [facility] MCH 32.6 25.0 - 35.0 uug [facility] MCHC 36.8 31.0 - 37.0 % [facility] RDW 12.6 % [facility] MPV 10.2 fl [facility] Platelet Count 206 100 - 400 K/cumm [facility] Comment Manual Diff Done [facility] Band % Manual 1 % [facility] Neutrophils % Manual 76 31 - 78 % [facility] Lymphocytes % Manual 3(L) 13 - 54 % [facility] Monocytes % Manual 5 4 - 13 % [facility] Eosinophils % Manual 3 0 - 8 % [facility] Atypical Lymphocyte % Manual 12 % [facility] RBC Morphology Few aniso. [facility] BLOOD SPECIMEN / Unknown 09/23/2010 8:20 AM UNDERWATER WELDER 09/23/2010 8:20 AM UNDERWATER WELDER Philip Chavez MD LAB - HEMATOLOGY ORDERABLES Performing Organization Address City/[facility] Co de Phone Number [facility] [address] [place] [address] * (ABNORMAL) IGG BLOOD (09/23/2010 8:20 AM UNDERWATER WELDER) IgG 628(L) 639 - 1349 mg/dl [facility] BLOOD SPECIMEN / Unknown 09/23/2010 8:20 AM UNDERWATER WELDER 09/23/2010 8:20 AM UNDERWATER WELDER Philip Chavez MD LAB - CHEMISTRY O RDERABLES Performing Organization Address City/[facility]/ZIP Co de Phone Number [facility] [address] [place] [address] * (ABNORMAL) COMPREHENSIVE METABOLIC PANEL (09/23/2010 8:20 AM UNDERWATER WELDER) Sodium 142 137 - 145 mmol/L [facility] Potassium 4.2 3.5 - 5.1 mmol/L [facility] Chloride 105 98 - 107 mmol/L [facility] CO2 26.2 22 - 30 mmol/L [facility] Glucose 91 70 - 106 mg/dl [facility] BUN 15.1 8 - 21 mg/dl [facility] Calcium 9.3 8.9 - 10.7 mg/dl [facility] Bilirubin Total 0.7 0.6 - 1.4 mg/dl [facility] Protein Total 7.3 6.3 - 8.6 gm/dl [facility] Albumin 4.8 3.7 - 5.6 gm/dl [facility] ALT 56(H) 10 - 40 Units/L [facility] AST 42 10 - 45 Units/L [facility] Alkaline Phosphatase 128 65 - 260 Units/L [facility] Creatinine 0.79 0.50 - 1.06 mg/dl [facility] BLOOD SPECIMEN / Unknown 09/23/2010 8:20 AM UNDERWATER WELDER 09/23/2010 8:20 AM UNDERWATER WELDER Philip Chavez MD LAB - CHEMISTRY O RDERABLES [facility] [address] [place] [id number] * GGT (09/23/2010 8:10 AM UNDERWATER WELDER) GGT 29 11 - 31 Units/L [facility] BLOOD SPECIMEN / Unknown 09/23/2010 8:10 AM UNDERWATER WELDER 09/23/2010 8:20 AM UNDERWATER WELDER Philip Chavez MD LAB - CHEMISTRY O RDERABLES [facility] [address] [place] [phone] * TACROLIMUS LEVEL (09/23/2010 8:10 AM UNDERWATER WELDER) Tacrolimus 4.1 3.0 - 12.0 ng/ml [facility] BLOOD SPECIMEN / Unknown 09/23/2010 8:10 AM UNDERWATER WELDER 09/23/2010 8:20 AM UNDERWATER WELDER Philip Chavez MD LAB - THERAPEUTIC DRUG MONITORING ORDERABLES [facility] [address] [place] [address] * JOSE-BAR VIRUS PCR QUANTITATIVE BLOOD (09/23/2010 8:10 AM UNDERWATER WELDER) Jose-De La Cruz Virus DNA PCR Quantitative Positive for EBV DNA but below the level of accurate quantitatio n. NO EBV DNA detected Copies/mL [facility] Jose-De La Cruz Virus DNA Quantitative log copy Positive for EBV DNA but below the level of accurate quantitatio n. log 10 copies/mL [facility] Comment EBV PCR [facility] Comment: This assay has [...] ??EBV levels can vary by speimen type: [facility] uses whole [...] characteristics determined by the [facility]rology [facility] of [facility]. ??It has not been [...] clinical laboratory testing. BLOOD SPECIMEN / Unknown 09/23/2010 8:10 AM UNDERWATER WELDER 09/23/2010 8:20 AM UNDERWATER WELDER Philip Chavez MD LAB - MICROBIOLOG Y ORDERABLES Performing Organization Address [facility] Co de Phone Number [facility] [address] [place] [phone] * BILIRUBIN DIRECT (09/23/2010 7:00 AM UNDERWATER WELDER) Bilirubin Direct ND 0.0 - 0.3 mg/dl [facility] BLOOD SPECIMEN / Unknown 09/23/2010 7:00 AM UNDERWATER WELDER 09/23/2010 8:20 AM UNDERWATER WELDER Philip Chavez MD LAB - CHEMISTRY O RDERABLES Performing Organization Address [facility] de Phone Number [facility] [address] [place] [phone] documented in this encounter Visit Diagnoses Diagnosis Hypogammaglobulinemia (HCC) Hypogammaglobulinaemia, unspecified Neutropenia associated with autoimmune disease (HCC) Other neutropenia documented in this encounter Administered Medications Inactive Administered Medications - up to 3 most recent administrations Medication Order MAR Action Action Date Dose Rate Site acetaminophen (TYLENOL) tablet 650 mg 650 mg, Oral, ONCE, 1 dose, On Wed09/23/10 at 0815, Maximum allowable Acetaminophen amount = 4 Grams / 24 hours. $ Given 09/23/2010 8:20 AM UNDERWATER WELDER 650 mg diphenhydrAMINE (BENADRYL) tablet 50 mg 50 mg, Oral, ONCE, 1 dose, On Wed09/23/10 at 0815 $ Given 09/23/2010 8:20 AM UNDERWATER WELDER 50 mg immune globulin (human) (GAMMAGARD;GAMUNEX;PRIVIGEN) 10 % infusion 20 g 20 g, Intravenous, ONCE, 1 dose, On Wed09/23/10 at 0815 $ Given 09/23/2010 8:27 AM UNDERWATER WELDER 20 g documented in this encounter Care Teams Healthcare Receptionist Relationship Specialty Start Date End Date Philip Gomez MD [address] [place] [address] PCP - General 08/11/10 01/04/11 documented as of this encounter
--- OUTSIDE RECORDS SUMMARY | 2024-10-28 05:58 | XMS_ITS | Encounter Summary ---
Author Organization [facility] Address [address] [place] [address] Care Team Providers Care Refinery Process Engineer Name Role Phone Vilma Spangler MD Primary Care Provider [phone] Encounter Details Date Type Department Care Team (Latest Contact Info) Description 02/17/2011 7:44 AM CDT - 02/17/2011 11:59 PM CDT Hospital Encounter [facility] at [address] [phone] Discharge Disposition: Home or Self Care Social [...] Reading Time Taken Comments Blood Pressure 90/60 02/17/2011 11:58 AM CDT Pulse 60 02/17/2011 11:58 AM CDT Temperature 36.1 ??C (97 ??F) 02/17/2011 10: 24 AM CDT Respiratory Rate 16 02/17/2011 11:5 8 AM CDT Oxygen Saturation 98% 02/17/2011 7:00 AM CDT Inhaled Oxygen Concentration - - Weight 53.7 kg (118 lb 6.2 oz) 02/17/2011 7:00 A M CDT Height 169 cm (5' 6.54 ) 02/17/2011 7:00 AM CDT Body Mass Index 18.8 02/17/2011 7:00 AM CDT Body Mass Index Percentile 9.09% 02/17/2011 7:0 0 AM CDT Growth Chart: CDC (Boys, 2-2 0 Years) documented in this encounter Discharge Instructions * Discharge Instructions* Document, Scanned - 02/17/2011 8:05 PM CDT documented in this encounter Medications at Time of Discharge Medication Sig Dispensed Refills Start Date End Date tacrolimus (PROGRAF) 1 MG capsule Take 1 mg by mouth 2 times daily. 03/14/2012 documented as of this encounter Progress Notes * Leyla Vargas RN - 02/17/2011 10:30 AM CDT Patient here for IVIG infusion. PIV placed in LAC by DARIANA RN and labs sent. Tanisha Chavez MD, examined patient and reviewed lab results. IgG level 489 (reference range 639 - 1349). IVIG ordered. Pre-medicated patient with Tylenol and Benadryl. Titrated IVIG infusion from a baseline rate of 32 mL / hour to a maximum rate of 161 mL /hour. VS's remained stable throughout; no adverse reaction occurred. PIV removed intact at the end of the infusion. Patient instructed by MD to RTC in 4 weeks. Patient left clinic ambulatory with his sister. * Lisandra Simmons RN - 02/17/2011 9:08 AM CDT Patient in clinic for labs, visit and possible IGG. Patient triaged and assessed by RN. No problemsor complaints reported to this RN at present time. #22 started to patient's left AC without difficulty. Flushes well and blood return noted. Blood obtained from IV and sent to lab. Patient's Igg low;IVIG ordered by MD. Patient examined by Dr. Chavez. Arrival screening complete. Report given to Narendra JACKSON who will continue patient care. * Philip Chavez MD - 02/17/2011 8:46 AM CDT Hematology/Oncology Progress Note 02/17/2011 Beka Nichols PCP: Vilma Spangler MD Diagnosis: Autoimmune Thrombocytopenia/Autoimmune Neutropenia Interval History: Patient with excellent response to Rituximab with normal counts for last year. 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 Clinically well. Off IVIG for lastmonth. Here for routine follow up. Stomach discomfort/nausea last week. Single episode of epistaxislast week without other bleeding episodes. Now feels fine No Known Allergies Current outpatient prescriptions Medication [...] History: Living at home with parents, sibs. Planning on working at [employer] over summer. Physical Exam Constitutional: BP 92/70 Pulse 60 Temp 96.8 ??F Resp 16 Ht 1.69 m (5' 6.54 ) Wt 53.7 kg (118 lb 6.2 oz) BMI 18.80 kg/m2 SpO2 98% BSA (Calculated): 1.59 General [...] hour(s)) CBC W MANUAL DIFFERENTIAL Collection Time 02/17/11 8:00 AM Component Value Range ??? WBC 6.54 4.5 - 11.0 (K/cumm) ??? RBC 5.02 4.50 - 5.30 (mill/cumm) ??? Hgb 16.1 (*) 13.0 - 16.0 (gm/dl) ??? Hct 44.8 37.0 - 49.0 (%) ??? MCV 89.2 78.0 - 98.0 (cu microns) ??? MCH 32.1 25.0 - 35.0 (uug) ??? MCHC 35.9 31.0 - 37.0 (%) ??? RDW 12.6 (%) ??? MPV 10.5 (fl) ??? Plt Ct K/CUMM 188 100 - 400 (K/cumm) ??? Gran 67.0 31 - 78 (%) ??? Lymph 20.9 13 - 54 (%) ??? Hayes 10.1 4 - 13 (%) ??? Eos 1.7 0 - 8 (%) ??? Baso 0.3 0 - 1 (%) ??? Manual Diff Comment Automated Diff Performed IGG BLOOD Collection Time 02/17/11 8:00 AM Component Value Range ??? IgG 489 (*) 639 - 1349 (mg/dl) Assessment 1. 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 Ultimately treated with Rituximab in late 2008. Normal counts for last year approximately 2. Immune suppression: Patient on chronic tacrolimus for liver transplant. 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 IVIG held last month secondary to normal values and overall excellent clinical presentation. Last T and B cell subsets with low CD4 count for unexplained reasons. Plan 1. CBC-Normal today 2. Medium Rei Panel (T and B cell subsets) 3. IgG low today. Therefore plan to give IVIG 500 mg/kg today with Tylenol/Benadryl premed 4. EBV PCR today. 5. RTC in 1 month for IVIG documented in this encounter Miscellaneous Notes * Miscellaneous Scans - Document, Scanned - 04/29/2011 7:09 AM CDT * Miscellaneous Scans - Document, Scanned - 04/29/2011 7:08 AM CDT documented in this encounter Plan of Treatment Not on file documented as of this encounter Procedures Procedure Name Priority Date/Time Associated Diagnosis Comments ACQUIRED IMMUNE DEFICIENCY PANEL Routine 02/17/2011 8:00 AM CDT Neutropenia associated with autoimmune disease (HCC) JOSE-DE LA CRUZ VIRUS PCR QUANT BLOOD/CSF Routine 02/17/2011 8:00 AM CDT Neutropenia associated with autoimmune disease (HCC) CBC W MANUAL DIFFERENTIAL Timed 02/17/2011 8:00 AM CDT Neutropenia associated with autoimmune disease (HCC) IGG BLOOD Timed 02/17/2011 8:00 AM CDT Hypogammaglobulinem ia (HCC) documented in this encounter Results * JOSE-BAR VIRUS PCR QUANTITATIVE BLOOD (02/17/2011 8:00 AM CDT) Jose-De La Cruz Virus DNA PCR Quantitative Positive for EBV DNA but below the level of accurate quantitatio n. NO EBV DNA detected Copies/mL [facility] Jose-De La Cruz Virus DNA Quantitative log copy Positive for EBV DNA but below the level of accurate quantitatio n. log 10 copies/mL [facility] Comment EBV PCR [facility] Comment: This assay has a [...] ??EBV levels can vary by speimen type: [facility] uses whole blood which is more [...] clinical laboratory testing. BLOOD SPECIMEN / Unknown 02/17/2011 8:00 AM CDT 02/17/2011 8:13 AM CDT Philip Chavez MD LAB - MICROBIOLOG Y ORDERABLES [facility] [address] [place] [place] [address] * ACQUIRED IMMUNE DEFICIENCY PANEL (02/17/2011 8:00 AM CDT) AIDS/ARC Panel See Scanned Report [facility] BLOOD SPECIMEN / Unknown 02/17/2011 8:00 AM CDT 02/17/2011 8:13 AM CDT Narrative Resulting Agency Comment Performed By [facility] Flow Cytometry Laboratory ? [facility] Dept of Path. Flow Cytometry ? [address] [facility] Philip Chavez MD LAB - HEMATOLOGY ORDERABLES Performing Organization Address [facility] de Phone Number [facility] [address] [place] [address] * (ABNORMAL) IGG BLOOD (02/17/2011 8:00 AM CDT) Pathologist [facility] IgG 489(L) 639 - 1349 mg/dl [facility] BLOOD SPECIMEN / Unknown 02/17/2011 8:00 AM CDT 02/17/2011 8:14 AM CDT Philip Chavez MD LAB - CHEMISTRY O RDERABLES Performing Organization Address [facility] de Phone Number [facility] [address] [place] [address] * (ABNORMAL) CBC W MANUAL DIFFERENTIAL (02/17/2011 8:00 AM CDT) [facility] WBC 6.54 4.5 - 11.0 K/cumm [facility] RBC 5.02 4.50 - 5.30 mill/cumm [facility] Hemoglobin 16.1(H) 13.0 - 16.0 gm/dl [facility] Hematocrit 44.8 37.0 - 49.0 % [facility] MCV 89.2 78.0 - 98.0 cu microns [facility] MCH 32.1 25.0 - 35.0 uug [facility] MCHC 35.9 31.0 - 37.0 % [facility] RDW 12.6 % [facility] MPV 10.5 fl [facility] Platelet Count 188 100 - 400 K/cumm [facility] Granulocytes % 67.0 31 - 78 % [facility] Lymphocytes % 20.9 13 - 54 % [facility] Monocytes % 10.1 4 - 13 % [facility] Eosinophils % 1.7 0 - 8 % [facility] Basophils % 0.3 0 - 1 % [facility] Comment Manual Diff Automated Diff Performed [facility] BLOOD SPECIMEN / Unknown 02/17/2011 8:00 AM CDT 02/17/2011 8:14 AM CDT Philip Chavez MD LAB - HEMATOLOGY ORDERABLES Performing Organization Address City/State/[facility] Co de Phone Number [facility] [address] [place] [address] documented in this encounter Visit Diagnoses Diagnosis Hypogammaglobulinemia (HCC) Hypogammaglobulinaemia, unspecified Neutropenia associated with autoimmune disease (HCC) Other neutropenia Hypogammaglobulinaemia, unspecified (HCC) Hypogammaglobulinaemia, unspecified documented in this encounter Administered Medications Inactive Administered Medications - up to 3 most recent administrations Medication Order MAR Action Action Date Dose Rate Site acetaminophen (TYLENOL) tablet 650 mg 650 mg, Oral, ONCE, 1 dose, On Wed02/17/11 at 0900, Maximum allowable Acetaminophen amount = 4 Grams / 24 hours. $ Given 02/17/2011 9:08 AM CDT 650 mg diphenhydrAMINE (BENADRYL) tablet 50 mg 50 mg, Oral, ONCE, 1 dose, On Wed02/17/11 at 0900 $ Given 02/17/2011 9:09 AM CDT 50 mg immune globulin (human) (GAMMAGARD;GAMUNEX;PRIVIGEN) 10 % infusion 25 g 25 g, Intravenous, ONCE, 1 dose, On Wed02/17/11 at 0900 $ Given 02/17/2011 9:45 AM CDT 25 g documented in this encounter Care Teams Refinery Process Engineer Relationship Specialty Start Date End Date Vilma Spangler MD [address] [facility] [address] [place] [address] PCP - General 01/05/11 documented as of this encounter
--- OUTSIDE RECORDS SUMMARY | 2024-10-28 05:58 | XMS_ITS | Encounter Summary ---
Author Organization [facility] Address [address] [address] Care Team Providers Care Lead Sales Consultant Name Role Phone Vilma Spangler MD Primary Care Provider Encounter Details Date Type Department Care Team (Latest Contact Info) Description 05/26/2011 7:32 AM CDT - 05/26/2011 11:59 PM CDT Hospital Encounter [facility] at [address] [id number] Discharge Disposition: Home or Self Care Social [...] Reading Time Taken Comments Blood Pressure 92/52 05/26/2011 11:40 AM CDT Pulse 72 05/26/2011 11:40 AM CDT Temperature 36.3 ??C (97.4 ??F) 05/26/2011 1 0:00 AM CDT Respiratory Rate 18 05/26/2011 11:4 0 AM CDT Oxygen Saturation 98% 05/26/2011 7:00 AM CDT Inhaled Oxygen Concentration - - Weight 52.9 kg (116 lb 10 oz) 05/26/2011 7:00 AM CDT Height 169.2 cm (5' 6.61 ) 05/26/2011 7:00 AM CD T Body Mass Index 18.48 05/26/2011 7:00 AM CDT Body Mass Index Percentile 5.61% 05/26/2011 7:0 0 AM CDT Growth Chart: CDC (Boys, 2-2 0 Years) documented in this encounter Discharge Instructions * Patient Instructions* Anastasia Fox RN - 05/26/2011 9:10 AM CDT Please bring your medications with you to each visit. * Discharge Instructions* Document, Scanned - 05/27/2011 5:50 AM CDT documented in this encounter Medications at Time of Discharge Medication Sig Dispensed Refills Start Date End Date tacrolimus (PROGRAF) 1 MG capsule Take 1 mg by mouth 2 times daily. 03/14/2012 documented as of this encounter Progress Notes * Anastasia Fox RN - 05/26/2011 10:05 AM CDT Arrived in clinic with Brother for scheduled visit and IVIG infusion. 22 gauge Piv placed x1 attempt to left ac and labs collected. Premeds given as ordered. Dr. Chavez examined patient. IVIG titratedas ordered. VSS. Patient resting in chair and watching TV. Report given to Elizabeth Mcgrath RN. * Philip Chavez MD - 05/26/2011 8:38 AM CDT Hematology/Oncology Progress Note 05/26/2011 Beka Nichols PCP: Vilma Spangler MD Diagnosis: Autoimmune Thrombocytopenia/Autoimmune Neutropenia Interval History: Patient with excellent response to Rituximab with normal counts for last year. 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 Clinically well. Feeling well. ANClow two months ago but recovered as of his last visit EBV PCR recently positive but below limits ofquantification. Repeat last month negative. Beka has no complaints today. 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 He is enjoying spending time out doors [...] MD ??? acetaminophen (TYLENOL) tablet 500 mg 500 mg Oral q4h PRN Philip Chavez MD Review of Systems: 1) [...] at home with parents, sibs. Working at [employer]. Physical Exam Constitutional: BP 100/70 Pulse 64 Temp 97.8 ??F Resp 20 Ht 1.692 m (5' 6.61 ) Wt 52.9 kg (116 lb 10 oz) BMI 18.48 kg/m2 SpO2 98% BSA (Calculated): 1.58 General [...] Imaging Studies Recent Results (from the past 300 hour(s)) CBC W MANUAL DIFFERENTIAL Collection Time 05/26/11 8:20 AM Component Value Range WBC 6.84 4.5 - 11.0 (K/cumm) RBC 5.07 4.50 - 5.30 (mill/cumm) Hgb 16.6 (*) 13.0 - 16.0 (gm/dl) Hct 45.0 37.0 - 49.0 (%) MCV 88.8 78.0 - 98.0 (cu microns) MCH 32.7 25.0 - 35.0 (uug) MCHC 36.9 31.0 - 37.0 (%) RDW 12.[address] K/CUMM 192 100 - 400 (K/cumm) Eos 0 - 8 (%) Manual Diff Comment Done Seg Manual 62 31 - 78 (%) Lymph Manual 16 13 - 54 (%) Laporte Manual 14 (*) 4 - 13 (%) Eos Manual 3 0 - 8 (%) Atyp Lymph Manual 5 RBC Morph Value: Some Anisocytosis, Some Poikylocytosis, Few Ovalocytes COMPREHENSIVE METABOLIC PANEL Collection Time 05/26/11 8:20 AM Component Value Range Sodium 143 137 - 145 (mmol/L) Potassium 3.6 3.5 - 5.1 (mmol/L) Chloride 105 98 - 107 (mmol/L) CO2 25.9 22 - 30 (mmol/L) Glucose 88 70 - 106 (mg/dl) BUN 14.8 8 - 21 (mg/dl) Calcium 9.1 8.9 - 10.7 (mg/dl) Bili Total 0.4 (*) 0.6 - 1.4 (mg/dl) Protein Total 6.5 6.3 - 8.6 (gm/dl) Albumin 4.2 3.7 - 5.6 (gm/dl) ALT/SGPT 22 10 - 40 (Units/L) AST/SGOT 31 10 - 45 (Units/L) Alk Phos 104 65 - 260 (Units/L) Creatinine 0.89 0.50 - 1.06 (mg/dl) IGG BLOOD Collection Time 05/26/11 8:20 AM Component Value Range IgG 701 639 - 1349 (mg/dl) JOSE-BAR VIRUS PCR QUANTITATIVE BLOOD Collection Time 05/26/11 8:20 AM Component Value Range EBV DNA Quant PCR NO EBV DNA detected (Copies/mL) Value: Positive for EBV DNA but below the level of accurate quantitation. EBV DNA MARCE Value: Positive for EBV DNA but below the level of accurate quantitation. EBV PCR Comment Assessment 1. 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 Ultimately treated with Rituximab in late 2008. Normal counts for last year approximately. EBV PCR again with low positive results. Counts normal. Patient asymptomatic 2. Immune suppression: Patient on chronic tacrolimus for liver transplant. 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 IVIG held three months ago secondary to normal values and overall excellent clinical presentation. T and B cell subsets with low CD4 count for unexplained reasons. Repeat CD4 count with improved absolute numbers compared to values obtained earlier this year. Clinic ally well without infectious issues. LFTs unremarkable. Plan 1. CBC 2. IVIG 500 mg/kg today with Tylenol/Benadryl premed 3. Repeat EBV PCR sent (see above). Send monthly 4. RTC in 1 month for IVIG documented in this encounter Procedure Notes * Papo Mcgrath RN - 05/26/2011 12:32 PM CDT Report received from Sixto Fox RN. 1140- IVIG infusion completed without difficulty. VSS throughout infusion. PIV d/c'd intact and bandaid applied. Discharge instructions given to pt to RTC in 4 weeks for next infusion. Pt d/c'd home ambulatory. documented in this encounter Miscellaneous Notes * Miscellaneous Scans - Document, Scanned - 08/06/2011 10:04 AM CDT documented in this encounter Plan of Treatment Not on file documented as of this encounter Procedures Procedure Name Priority Date/Time Associated Diagnosis Comments JOSE-DE LA CRUZ VIRUS PCR QUANT BLOOD/CSF Routine 05/26/2011 8:20 AM CDT Neutropenia associated with autoimmune disease (HCC) CBC W MANUAL DIFFERENTIAL Timed 05/26/2011 8:20 AM CDT Neutropenia associated with autoimmune disease (HCC) COMPREHENSIVE METABOLIC PANEL Timed 05/26/2011 8:20 AM CDT Neutropenia associated with autoimmune disease (HCC) IGG BLOOD Timed 05/26/2011 8:20 AM CDT Hypogammaglobuline justine (HCC) documented in this encounter Results * JOSE-BAR VIRUS PCR QUANTITATIVE BLOOD (05/26/2011 8:20 AM CDT) Jose-De La Cruz Virus DNA PCR Quantitative Positive for EBV DNA but below the level of accurate quantitatio n. NO EBV DNA detected Copies/mL [facility] Jose-De La Cruz Virus DNA Quantitative log copy Positive for EBV DNA but below the level of accurate quantitatio n. log 10 copies/mL [facility] Comment EBV PCR [facility] Comment: This assay has [...] ??EBV levels can vary by speimen type: [facility] uses whole blood which is [...] characteristics determined by the [facility]. ??It has not been cleared or approved [...] clinical laboratory testing. BLOOD SPECIMEN / Unknown 05/26/2011 8:20 AM CDT 05/26/2011 8:34 AM CDT Philip Chavez MD LAB - MICROBIOLOG Y ORDERABLES Performing Organization Address [facility] de Phone Number [facility] [address] [place] [address] * IGG BLOOD (05/26/2011 8:20 AM CDT) IgG 701 639 - 1349 mg/dl [facility] BLOOD SPECIMEN / Unknown 05/26/2011 8:20 AM CDT 05/26/2011 8:34 AM CDT Philip Chavez MD LAB - CHEMISTRY O RDERABLES Performing Organization Address [facility] de Phone Number [facility] [address] [place] [address] * (ABNORMAL) COMPREHENSIVE METABOLIC PANEL (05/26/2011 8:20 AM CDT) Sodium 143 137 - 145 mmol/L [facility] Potassium 3.6 3.5 - 5.1 mmol/L [facility] Chloride 105 98 - 107 mmol/L [facility] CO2 25.9 22 - 30 mmol/L [facility] Glucose 88 70 - 106 mg/dl [facility] BUN 14.8 8 - 21 mg/dl [facility] Calcium 9.1 8.9 - 10.7 mg/dl [facility] Bilirubin Total 0.4(L) 0.6 - 1.4 mg/dl [facility] Protein Total 6.5 6.3 - 8.6 gm/dl [facility] Albumin 4.2 3.7 - 5.6 gm/dl [facility] ALT 22 10 - 40 Units/L [facility] AST 31 10 - 45 Units/L [facility] Alkaline Phosphatase 104 65 - 260 Units/L [facility] Creatinine 0.89 0.50 - 1.06 mg/dl [facility] BLOOD SPECIMEN / Unknown 05/26/2011 8:20 AM CDT 05/26/2011 8:34 AM CDT Philip Chavez MD LAB - CHEMISTRY O RDERABLES Performing Organization Address City/State/[facility] Co de Phone Number [facility] [address] [place] [address] * (ABNORMAL) CBC W MANUAL DIFFERENTIAL (05/26/2011 8:20 AM CDT) WBC 6.84 4.5 - 11.0 K/cumm [facility] RBC 5.07 4.50 - 5.30 mill/cumm [facility] Hemoglobin 16.6(H) 13.0 - 16.0 gm/dl [facility] Hematocrit 45.0 37.0 - 49.0 % [facility] MCV 88.8 78.0 - 98.0 cu microns [facility] MCH 32.7 25.0 - 35.0 uug [facility] MCHC 36.9 31.0 - 37.0 % [facility] RDW 12.5 % [facility] MPV 10.5 fl [facility] Platelet Count 192 100 - 400 K/cumm [facility] Eosinophils % 0 - 8 % [facility] Comment Manual Diff Done [facility] Neutrophils % Manual 62 31 - 78 % [facility] Lymphocytes % Manual 16 13 - 54 % [facility] Monocytes % Manual 14(H) 4 - 13 % [facility] Eosinophils % Manual 3 0 - 8 % [facility] Atypical Lymphocyte % Manual 5 % [facility] RBC Morphology Some Anisocytosis, Some Poikylocytosi s, Few Ovalocytes [facility] BLOOD SPECIMEN / Unknown 05/26/2011 8:20 AM CDT 05/26/2011 8:34 AM CDT Philip Chavez MD LAB - HEMATOLOGY ORDERABLES [facility] [address] [place] [address] documented in this encounter Visit Diagnoses Diagnosis Hypogammaglobulinemia (HCC) Hypogammaglobulinaemia, unspecified Neutropenia associated with autoimmune disease (HCC) Other neutropenia documented in this encounter Administered Medications Inactive Administered Medications - up to 3 most recent administrations Medication Order MAR Action Action Date Dose Rate Site acetaminophen (TYLENOL) tablet 500 mg 500 mg, Oral, EVERY 4 HOURS PRN, Fever, Pain, Starting on Wed05/26/11 at 0838, Until Wed05/27/11 at 1434, Maximum allowable Acetaminophen amount = 4 Grams (4000 mg) / 24 hours. $ Given 05/26/2011 8:45 AM CDT 500 mg diphenhydrAMINE (BENADRYL) tablet 50 mg 50 mg, Oral, ONCE, 1 dose, On Wed05/26/11 at 0915 $ Given 05/26/2011 8:45 AM CDT 50 mg immune globulin (human) (GAMMAGARD;GAMUNEX;PRIVIGEN) 10 % infusion 25 g 25 g (0.5 g/kg ? 52.9 kg), Intravenous, ONCE, 1 dose, On Wed05/26/11 at 0800 $ Given 05/26/2011 8:45 AM CDT 25 g Antecubital documented in this encounter Care Teams Lead Sales Consultant Relationship Specialty Start Date End Date Vilma Spangler MD [address] [place] [address] PCP - General 01/05/11 documented as of this encounter
--- OUTSIDE RECORDS SUMMARY | 2024-10-28 05:58 | XMS_ITS | Encounter Summary ---
Author Organization [facility] Address [address] [place] [address] Care Team Providers Care Credit Risk Management Director Name Role Phone Philip Gomez MD Primary Care Provider Reason for Visit * Reason Comments Follow-up mass left scapula Encounter Details Date Type Department Care Team (Latest Contact Info) Description 08/19/2010 9:35 AM CDT - 08/19/2010 11:59 PM CDT Hospital Encounter [facility] - [facility] [facility] [place], [place] [id number] Kristine Hamm MD Orthopedics Discharge Disposition: Home or Self Care Social History Tobacco Use Types Packs/Day Years Used Date Smoking Tobacco: Never Alcohol Use Standard Drinks/Week Comments No 0 (1 standard drink = 0.6 oz pur e alcohol) Sex and Gender Information Value Date Recorded Sex Assigned at Not on file Gender Identity Not on file Sexual Orientation Not on file documented as of this encounter Discharge Instructions * Patient Instructions* Kristine Hamm MD - 08/19/2010 2:53 PM CDT Encounter Diagnoses Code Name Primary? 719.41 Pain in joint, shoulder region Return appointment: As needed Call [phone] for return if your child has new symptoms or problems, or if you have concerns. Call [phone] for questions. Physicians orders: none Medications prescribed: none Activity Restrictions: none School Excuse: Patient had an appointment 08/19/2010 documented in this encounter Medications at Time of Discharge Medication Sig Dispensed Refills Start Date End Date tacrolimus (PROGRAF) 1 MG capsule Take 1 mg by mouth 2 times daily. 03/14/2012 documented as of this encounter Progress Notes * Kristine Hamm MD - 08/25/2010 2:22 PM CDT HISTORY: Beka Nichols is a 15 y.o. male who presents for review of the MRI of his left scapula. He reports that his shoulder pain has improved since his last visit. He is accompanied today by his mother who reports that blount has been complaining less often. MEDS: Current outpatient prescriptions Medication Sig Dispense Refill ??? tacrolimus (PROGRAF) 1 MG capsule Take 1 mg by mouth 2 times daily. ALLERGIES: No Known Allergies IMMUNIZATIONS: Up to date ROS: Negative for cardiac, renal, pulmonary or seizure disorders. PHYSICAL EXAM: Beka Nichols is a well developed, well nourished male in no acute distress who is alert andcooperative with my examination. He does have good head and trunk control. He does not ambulate with a limp. Upper extremity exam shows decreased tenderness along the left scapula and trapezius. Lower extremity exam shows no apparent abnormalities . IMAGING: MRI left scapula - no abnormalities IMPRESSION: Left shoulder pain PLAN: Recommend continued observation since pain is improving and MRI is negative. F/U as needed. * Cathleen Muhammad - 08/19/2010 2:20 PM CDT He is here for an MRI f/u of the left scapula. documented in this encounter Plan of Treatment Not on file documented as of this encounter Visit Diagnoses Diagnosis Pain in joint, shoulder region documented in this encounter Care Teams Credit Risk Management Director Relationship Specialty Start Date End Date Philip Gomez MD [address] [place] [address] PCP - General 08/11/10 01/04/11 documented as of this encounter
--- OUTSIDE RECORDS SUMMARY | 2024-10-28 05:58 | XMS_ITS | Encounter Summary ---
Author Organization [facility] Address [address] [place] [address] Care Team Providers Care Catalyst Operator Chief Name Role Phone Philip Gomez MD Primary Care Provider Encounter Details Date Type Department Care Team (Late st Contact Info) Description 04/28/2010 Orders Only [facility] - Transplant Services [address] [place] [address] Marisel Law, missile tracking technician Social History Tobacco Use Types Packs/Day Years [...] as of this encounter Visit Diagnoses Diagnosis Transplant- Primary Unspecified organ or tissue replaced by transplant documented in this encounter Care Teams Catalyst Operator Chief Relationship Specialty Start Date End Date Philip Gomez MD [address] [place] [address] PCP - General 11/15/09 07/09/10 documented as of this encounter
--- OUTSIDE RECORDS SUMMARY | 2024-10-28 05:58 | XMS_ITS | Encounter Summary ---
Author Organization [facility] Address [address] [place] [place] [address] Care Team Providers Care Calibration Tester Name Role Phone Philip Gomez MD Primary Care Provider Reason for Visit * Reason Onset Date Comments Results 09/24/2010 Encounter Details Date Type Department Care Team (Late st Contact Info) Description 09/24/2010 Telephone [facility] - Transplant Services [address] [place] [address] Niurka Gutierrez RN Results Social History Tobacco Use Types [...] Telephone Encounter - Niurka Gutierrez RN - 09/24/2010 12:51 PM EGG SETTER Mom aware of lab results, no changes at this time. Beka due to be seen in clinic in December or January. Mom is supposed to call with Beka's school schedule so that we can get him an appointment. SETTER documented in this encounter Plan of Treatment Not on file documented as of this encounter Visit Diagnoses Not on filedocumented in this encounter Care Teams Calibration Tester Relationship Specialty Start Date End Date Philip Gomez MD [address] [place] [address] PCP - General 10/11/10 3/6/11 documented as of this encounter
--- OUTSIDE RECORDS SUMMARY | 2024-10-28 05:58 | XMS_ITS | Encounter Summary ---
Author Organization [facility] Address [address] [place] [address] Care Team Providers Care Roof Tiler Name Role Phone Philip Gomez MD Primary Care Provider Encounter Details Date Type Department Care Team (Latest Contact Info) Description 12/12/2010 6:59 AM EDUCATIONAL DIRECTOR - 12/12/2010 11:59 PM EDUCATIONAL DIRECTOR Hospital Encounter [facility] at [address] [phone] Discharge Disposition: Home or Self Care Social [...] Reading Time Taken Comments Blood Pressure 100/50 12/12/2010 10:16 AM EDUCATIONAL DIRECTOR Pulse 60 12/12/2010 10:16 AM EDUCATIONAL DIRECTOR Temperature 36 ??C (96.8 ??F) 12/12/2010 8:00 AM EDUCATIONAL DIRECTOR Respiratory Rate 20 12/12/2010 10:1 6 AM EDUCATIONAL DIRECTOR Oxygen Saturation 99% 12/12/2010 8:00 AM EDUCATIONAL DIRECTOR Inhaled Oxygen Concentration - - Weight 54.5 kg (120 lb 2.4 oz) 12/12/2010 8:00 A M EDUCATIONAL DIRECTOR Height 169 cm (5' 6.54 ) 12/12/2010 8:00 AM EDUCATIONAL DIRECTOR Body Mass Index 19.08 12/12/2010 8:00 AM EDUCATIONAL DIRECTOR Body Mass Index Percentile 12.79% 12/12/2010 8:0 0 AM EDUCATIONAL DIRECTOR Growth Chart: CDC (Boys, 2-2 0 Years) documented in this encounter Medications at Time of Discharge Medication Sig Dispensed Refills Start Date End Date tacrolimus (PROGRAF) 1 MG capsule Take 1 mg by mouth 2 times daily. 03/14/2012 documented as of this encounter Progress Notes * Leyla Vargas RN - 12/12/2010 12:41 PM CST Patient here for scheduled IVIG. Pre-medications given: Tylenol and Benadryl. PIV placed in LAC. Lab samples obtained. Dr. Tanisha Chavez spoke with patient briefly. Patient will RTC in 4 weeks for IVIG. Infusion titrated upwards [id number] per pharmacy guidelines. VS's remained stable. No adverse reaction noted. PIV d/c'd at the end of the infusion. Patient left clinic ambulatory with sister. ATIONAL DIRECTOR documented in this encounter Miscellaneous Notes * Miscellaneous Scans - Document, Scanned - 01/23/2011 1:09 PM CDT documented in this encounter Plan of Treatment Not on file documented as of this encounter Procedures Procedure Name Priority Date/Time Associated Diagnosis Comments COMPREHENSIVE METABOLIC PANEL Timed 12/12/2010 10:45 AM EDUCATIONAL DIRECTOR IGG BLOOD Timed 12/12/2010 10:45 AM EDUCATIONAL DIRECTOR CBC W MANUAL DIFFERENTIAL Timed 12/12/2010 8:30 AM EDUCATIONAL DIRECTOR Neutropenia associated with autoimmune disease (HCC) documented in this encounter Results * (ABNORMAL) COMPREHENSIVE METABOLIC PANEL (12/12/2010 10:45 AM EDUCATIONAL DIRECTOR) Sodium 139 137 - 145 mmol/L [facility] Potassium 4.2 3.5 - 5.1 mmol/L [facility] Chloride 104 98 - 107 mmol/L [facility] CO2 26.9 22 - 30 mmol/L [facility] Glucose 111(H) 70 - 106 mg/dl [facility] BUN 13.4 8 - 21 mg/dl [facility] Calcium 8.8(L) 8.9 - 10.7 mg/dl [facility] Bilirubin Total 0.4(L) 0.6 - 1.4 mg/dl [facility] Protein Total 7.1 6.3 - 8.6 gm/dl [facility] Albumin 3.9 3.7 - 5.6 gm/dl [facility] ALT 46(H) 10 - 40 Units/L [facility] AST 36 10 - 45 Units/L [facility] Alkaline Phosphatase 76 65 - 260 Units/L [facility] Creatinine 0.78 0.50 - 1.06 mg/dl [facility] BLOOD SPECIMEN / Unknown 12/12/2010 10:45 AM EDUCATIONAL DIRECTOR 12/12/2010 11:37 AM EDUCATIONAL DIRECTOR Narrative [facility] - 12/12/2010 12:30 PM EDUCATIONAL DIRECTOR AUTO REORDER DUE TO SPECIMEN REJECT Philip Chavez MD LAB - CHEMISTRY O RDERABLES Performing Organization Address City/[facility]/ZIP Co de Phone Number [facility] [address] [place] [phone] * (ABNORMAL) IGG BLOOD (12/12/2010 10:45 AM EDUCATIONAL DIRECTOR) IgG 1368(H) 639 - 1349 mg/dl [facility] BLOOD SPECIMEN / Unknown 12/12/2010 10:45 AM EDUCATIONAL DIRECTOR 12/12/2010 11:37 AM EDUCATIONAL DIRECTOR Narrative [facility] - 12/12/2010 12:30 PM EDUCATIONAL DIRECTOR AUTO REORDER DUE TO SPECIMEN REJECT Philip Chavez MD LAB - CHEMISTRY O RDERABLES Performing Organization Address [facility] Co de Phone Number [facility] [address] [place] [phone] * (ABNORMAL) CBC W MANUAL DIFFERENTIAL (12/12/2010 8:30 AM EDUCATIONAL DIRECTOR) WBC 5.62 4.5 - 11.0 K/cumm [facility] RBC 4.96 4.50 - 5.30 mill/cumm [facility] Hemoglobin 16.2(H) 13.0 - 16.0 gm/dl [facility] Hematocrit 44.4 37.0 - 49.0 % [facility] MCV 89.5 78.0 - 98.0 cu microns [facility] MCH 32.7 25.0 - 35.0 uug [facility] MCHC 36.5 31.0 - 37.0 % [facility] RDW 12.8 % [facility] MPV 11.0 fl [facility] Platelet Count 211 100 - 400 K/cumm [facility] Comment Manual Diff Done [facility] Neutrophils % Manual 69 31 - 78 % [facility] Lymphocytes % Manual 12(L) 13 - 54 % [facility] Monocytes % Manual 10 4 - 13 % [facility] Eosinophils % Manual 2 0 - 8 % [facility] Atypical Lymphocyte % Manual 7 % [facility] RBC Morphology Slight Rouleaux, Few Target Cells [facility] BLOOD SPECIMEN / Unknown 12/12/2010 8:30 AM EDUCATIONAL DIRECTOR 12/12/2010 8:36 AM EDUCATIONAL DIRECTOR Philip Chavez MD LAB - HEMATOLOGY ORDERABLES [facility] [address] [place] [address] documented in this encounter Visit Diagnoses Diagnosis Hypogammaglobulinemia (HCC) Hypogammaglobulinaemia, unspecified Neutropenia associated with autoimmune disease (HCC) Other neutropenia documented in this encounter Administered Medications Inactive Administered Medications - up to 3 most recent administrations Medication Order MAR Action Action Date Dose Rate Site acetaminophen (TYLENOL) tablet 500 mg 500 mg, Oral, ONCE, 1 dose, On Wed12/12/10 at 0800, Maximum allowable Acetaminophen amount = 4 Grams / 24 hours. $ Given 12/12/2010 8:20 AM EDUCATIONAL DIRECTOR 500 mg diphenhydrAMINE (BENADRYL) tablet 25 mg 25 mg, Oral, ONCE, 1 dose, On Wed12/12/10 at 0800 $ Given 12/12/2010 8:20 AM EDUCATIONAL DIRECTOR 25 mg immune globulin (human) (GAMMAGARD;GAMUNEX;PRIVIGEN) 10 % infusion 20 g 20 g, Intravenous, ONCE, 1 dose, On Wed12/12/10 at 0900 $ Given 12/12/2010 8:45 AM EDUCATIONAL DIRECTOR 20 g documented in this encounter Care Teams Roof Tiler Relationship Specialty Start Date End Date Philip Gomez MD [address] [place] [address] PCP - General 08/11/10 01/04/11 documented as of this encounter
--- OUTSIDE RECORDS SUMMARY | 2024-10-28 05:58 | XMS_ITS | Encounter Summary ---
Author Organization [facility] Address [address] [place] [address] Care Team Providers Care Garden Labourer Name Role Phone Philip Gomez MD Primary Care Provider Encounter Details Date Type Department Care Team (Latest Contact Info) Description 08/19/2010 9:35 AM CDT - 08/19/2010 2:18 PM CDT Hospital Encounter [facility] Pediatrics - Orthopedics [address] [place] [address] Kristine Hamm MD Orthopedics Discharge Disposition: Home [...] daily. 03/14/2012 documented as of this encounter Miscellaneous Notes * Miscellaneous Scans - Document, Scanned - 09/28/2010 4:00 PM ROTARY SHEAR CUTTER documented in this encounter Plan of Treatment Not on file documented as of this encounter Visit Diagnoses Not on filedocumented in this encounter Care Teams Garden Labourer Relationship Specialty Start Date End Date Philip Gomez MD [facility] [place] [address] PCP - General 08/11/10 01/04/11 documented as of this encounter
--- OUTSIDE RECORDS SUMMARY | 2024-10-28 05:58 | XMS_ITS | Encounter Summary ---
Author Organization [facility] Address [address] [facility] [place] [address] Care Team Providers Care Communications Department Chairperson Name Role Phone Vilma Spangler MD Primary Care Provider Encounter Details Date Type Department Care Team (Latest Contact Info) Description 03/24/2011 6:45 AM CDT - 03/24/2011 11:59 PM CDT Hospital Encounter [facility] at [address] [phone] Discharge Disposition: Home or Self Care Social [...] Reading Time Taken Comments Blood Pressure 92/52 03/24/2011 11:45 AM CDT Pulse 60 03/24/2011 11:45 AM CDT Temperature 36.7 ??C (98 ??F) 03/24/2011 7:28 AM CDT Respiratory Rate 18 03/24/2011 11:4 5 AM CDT Oxygen Saturation 99% 03/24/2011 7:28 AM CDT Inhaled Oxygen Concentration - - Weight 52.4 kg (115 lb 8.3 oz) 03/24/2011 7:28 A M CDT Height 169.2 cm (5' 6.61 ) 03/24/2011 7:28 AM CD T Body Mass Index 18.3 03/24/2011 7:28 AM CDT Body Mass Index Percentile 5.03% 03/24/2011 7:2 8 AM CDT Growth Chart: CDC (Boys, 2-2 0 Years) documented in this encounter Medications at Time of Discharge Medication Sig Dispensed Refills Start Date End Date tacrolimus (PROGRAF) 1 MG capsule Take 1 mg by mouth 2 times daily. 03/14/2012 documented as of this encounter Progress Notes * Philip Chavez MD - 03/24/2011 9:36 AM CDT Hematology/Oncology Progress Note 03/24/2011 Beka Nichols PCP: Vilma Spangler MD Diagnosis: Autoimmune Thrombocytopenia/Autoimmune Neutropenia Interval History: Patient with excellent response to Rituximab with normal counts for last year. 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 Clinically well. Feeling well. Continues without problems or concerns to report. No Known Allergies Current Outpatient Prescriptions Medication Sig Dispense Refill ??? tacrolimus (PROGRAF) 1 MG capsule Take 1 mg by mouth 2 times daily. Current Facility-Administered Medications Medication Dose Route Frequency Provider Last Rate Last Dose ??? immune globulin (human) (GAMMAGARD;GAMUNEX;PRIVIGEN) 10 % infusion 25 g 0.5 g/kg Intravenous Once Philip Chavez MD 25 g at 03/24/11 0900 ??? diphenhydrAMINE (BENADRYL) tablet 50 mg 50 mg Oral TID Philip Chavez MD 50 mg at 03/24/11 0845 ??? acetaminophen (TYLENOL) tablet 500 mg 500 mg Oral q4h PRN Philip Chavez MD 500 mg at 03/24/11 0845 Review of Systems: 1) General Fever: no [...] no 9) Neuro Headache: no Weakness: no Vertigo: no Seizure: no Other: no 10) Psych School Grade Behavior: no Other: no 11) Allergy/Immun no 12) Pain no 13) Nutritional Status good Past Medical History: unchanged Family Medical History: unchanged Social History: Living at home with parents, sibs. Planning on working at [employer] over summer. Physical Exam Constitutional: BP 86/44 Pulse 74 Temp 98 ??F Resp 16 Ht 1.692 m (5' 6.61 ) Wt 52.4 kg (115 lb 8.3 oz) BMI 18.30 kg/m2 SpO2 99% BSA (Calculated): 1.57 General Appearance: No acute distress Head: No [...] hour(s)) CBC W AUTO DIFFERENTIAL Collection Time 03/24/11 7:50 AM Component Value Range WBC 2.53 (*) 4.5 - 11.0 (K/cumm) RBC 4.73 4.50 - 5.30 (mill/cumm) Hgb 15.6 13.0 - 16.0 (gm/dl) Hct 41.8 37.0 - 49.0 (%) MCV 88.4 78.0 - 98.0 (cu microns) MCH 33.0 25.0 - 35.0 (uug) MCHC 37.3 (*) 31.0 - 37.0 (%) RDW 12.[address] K/CUMM 217 100 - 400 (K/cumm) Manual Diff Comment To follow Assessment 1. 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 Ultimately treated with Rituximab in late 2008. Normal counts for last year approximately. EBV PCR last month low positive. Remains low positive. ANC low today. Patient asymptomatic 2. Immune suppression: Patient on chronic tacrolimus for liver transplant. 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 IVIG held two months ago secondary to normal values and overall excellent clinical presentation. T and B cell subsets with low CD4 count for unexplained reasons. Repeat CD4 count with improved absolute numbers compared to values obtained earlier this year. Clinically well without infectious issues. Plan 1. CBC 2. IgG remains low today. Therefore plan to give IVIG 500 mg/kg today with Tylenol/Benadryl premed 3. Repeat EBV PCR 4. RTC in 1 month for IVIG documented in this encounter Miscellaneous Notes * Miscellaneous Scans - Document, Scanned - 07/01/2011 8:18 AM CDT documented in this encounter Plan of Treatment Not on file documented as of this encounter Procedures Procedure Name Priority Date/Time Associated Diagnosis Comments DIFFERENTIAL MANUAL Timed 03/24/2011 7 :50 AM CDT CBC W AUTO DIFFERENTIAL Timed 03/24/2011 7:50 AM CDT Neutropenia associated with autoimmune disease (HCC) COMPREHENSIVE METABOLIC PANEL Timed 03/24/2011 7:50 AM CDT Neutropenia associated with autoimmune disease (HCC) GGT Routine 03/24/2011 7:50 AM CDT Transplant BILIRUBIN DIRECT Timed 03/24/2011 7:50 AM CDT IGG BLOOD Timed 03/24/2011 7:50 AM CDT Neutropenia associated with autoimmune disease (HCC) TACROLIMUS LEVEL Routine 03/24/2011 7:40 AM CDT Transplant JOSE-BORREGO VIRUS PCR QUANT BLOOD/CSF Routine 03/24/2011 7:40 AM CDT Neutropenia associated with autoimmune disease (HCC) MAGNESIUM BLOOD Routine 03/24/2011 7:40 AM CDT Transplant documented in this encounter Results * BILIRUBIN DIRECT (03/24/2011 7:50 AM CDT) Bilirubin Direct ND 0.0 - 0.3 mg/dl [facility] BLOOD SPECIMEN / Unknown 03/24/2011 7:50 AM CDT 03/24/2011 9:40 AM CDT Philip Chavez MD LAB - CHEMISTRY O RDERABLES Performing Organization Address [facility] Co de Phone Number [facility] [address] [place] [address] * (ABNORMAL) DIFFERENTIAL MANUAL (03/24/2011 7:50 AM CDT) Comment Manual Diff Done [facility] Band % Manual 12 % [facility] Neutrophils % Manual 5(L) 31 - 78 % [facility] Lymphocytes % Manual 29 13 - 54 % [facility] Monocytes % Manual 44(H) 4 - 13 % [facility] Eosinophils % Manual 5 0 - 8 % [facility] Atypical Lymphocyte % Manual 4 % [facility] Myelocytes % Manual 1 % [facility] RBC Morphology Slight Anisocytosis, Slight Poikylocytosis [facility] BLOOD SPECIMEN / Unknown 03/24/2011 7:50 AM CDT 03/24/2011 9:23 AM CDT Philip Chavez MD LAB - HEMATOLOGY ORDERABLES Performing Organization Address [facility] de Phone Number [facility] [address] [place] [address] * GGT (03/24/2011 7:50 AM CDT) Pathologist [facility] GGT 22 11 - 31 Units/L [facility] BLOOD SPECIMEN / Unknown 03/24/2011 7:50 AM CDT 03/24/2011 9:12 AM CDT Houston Chao MD LAB - CHEMISTRY MACIE HERNÁNDEZ Performing Organization Address [facility] Co de Phone Number [facility] [address] [place] [phone] * (ABNORMAL) IGG BLOOD (03/24/2011 7:50 AM CDT) Pathologist [facility] IgG 558(L) 639 - 1349 mg/dl [facility] BLOOD SPECIMEN / Unknown 03/24/2011 7:50 AM CDT 03/24/2011 9:12 AM CDT Philip Chavez MD LAB - CHEMISTRY O RDJACE Performing Organization Address [facility] de Phone Number [facility] [address] [place] [address] * (ABNORMAL) COMPREHENSIVE METABOLIC PANEL (03/24/2011 7:50 AM CDT) Pathologist [facility] Sodium 144 137 - 145 mmol/L [facility] Potassium 4.2 3.5 - 5.1 mmol/L [facility] Chloride 107 98 - 107 mmol/L [facility] CO2 27.9 22 - 30 mmol/L [facility] Glucose 84 70 - 106 mg/dl [facility] BUN 11.5 8 - 21 mg/dl [facility] Calcium 9.0 8.9 - 10.7 mg/dl [facility] Bilirubin Total 0.5(L) 0.6 - 1.4 mg/dl [facility] Protein Total 6.3 6.3 - 8.6 gm/dl [facility] Albumin 3.8 3.7 - 5.6 gm/dl [facility] ALT 18 10 - 40 Units/L [facility] AST 31 10 - 45 Units/L [facility] Alkaline Phosphatase 105 65 - 260 Units/L [facility] Creatinine 0.77 0.50 - 1.06 mg/dl [facility] BLOOD SPECIMEN / Unknown 03/24/2011 7:50 AM CDT 03/24/2011 9:12 AM CDT Philip Chavez MD LAB - CHEMISTRY O SARAH Performing Organization Address [facility] de Phone Number [facility] [address] [place] [phone] * (ABNORMAL) CBC W AUTO DIFFERENTIAL (03/24/2011 7:50 AM CDT) WBC 2.53(LL) 4.5 - 11.0 K/cumm [facility] RBC 4.73 4.50 - 5.30 mill/cumm [facility] Hemoglobin 15.6 13.0 - 16.0 gm/dl [facility] Hematocrit 41.8 37.0 - 49.0 % [facility] MCV 88.4 78.0 - 98.0 cu microns [facility] MCH 33.0 25.0 - 35.0 uug [facility] MCHC 37.3(H) 31.0 - 37.0 % [facility] RDW 12.8 % [facility] MPV 10.0 fl [facility] Platelet Count 217 100 - 400 K/cumm [facility] Comment Manual Diff Done [facility] BLOOD SPECIMEN / Unknown 03/24/2011 7:50 AM CDT 03/24/2011 9:12 AM CDT Philip Chavez MD LAB - HEMATOLOGY ORDERABLES Performing Organization Address City/[facility] Co de Phone Number [facility] [address] [place] [phone] * (ABNORMAL) TACROLIMUS LEVEL (03/24/2011 7:40 AM CDT) Tacrolimus <0.8(LL) 3.0 - 12.0 ng/ml [facility] Tacrolimus 3.0 - 12.0 ng/ml [facility] Tacrolimus 3.0 - 12.0 ng/ml [facility] Tacrolimus 2.0 - 15.0 ng/ml [facility] BLOOD SPECIMEN / Unknown 03/24/2011 7:40 AM CDT 03/24/2011 9:12 AM CDT Houston Chao MD LAB - THERAPEUTIC DR ELEUTERIO MONITORING ORDERABLES Performing Organization Address City/[facility] Co de Phone Number [facility] [address] [place] [phone] * MAGNESIUM BLOOD (03/24/2011 7:40 AM CDT) Magnesium 2.1 1.6 - 2.3 mg/dl [facility] BLOOD SPECIMEN / Unknown 03/24/2011 7:40 AM CDT 03/24/2011 9:13 AM CDT Houston Chao MD LAB - CHEMISTRY MACIE Negron Organization Address City/State/ZIP Co de Phone Number [facility] [address] [place] [address] * JOSE-BAR VIRUS PCR QUANTITATIVE BLOOD (03/24/2011 7:40 AM CDT) Jose-Borrego Virus DNA PCR Quantitative Positive for EBV DNA but below the level of accurate quantitatio n. NO EBV DNA detected Copies/mL [facility] Jose-Borrego Virus DNA Quantitative log copy Positive for EBV DNA but below the level of accurate quantitatio n. log 10 copies/mL [facility] Comment EBV PCR [facility] Comment: This [...] ??EBV levels can vary by speimen type: [facility] uses whole blood which is more [...] clinical laboratory testing. BLOOD SPECIMEN / Unknown 03/24/2011 7:40 AM CDT 03/24/2011 9:13 AM CDT Philip Chavez MD LAB - MICROBIOLOG Y ORDERABLES [facility] [address] [place] [address] documented in this encounter Visit Diagnoses Diagnosis [...] 4 HOURS PRN, Fever, Pain, Starting on Wed03/24/11 at 0647, Until Wed03/25/11 at 1434, Maximum allowable Acetaminophen amount = 4 Grams (4000 mg) / 24 hours. $ Given 03/24/2011 8:45 AM CDT 500 mg diphenhydrAMINE (BENADRYL) tablet 50 mg 50 mg, Oral, 3 TIMES DAILY, First dose on Wed03/24/11 at 0900, Until Discontinued $ Given 03/24/2011 8:45 AM CDT 50 mg immune globulin (human) (GAMMAGARD;GAMUNEX;PRIVIGEN) 10 % infusion 25 g 25 g (0.5 g/kg ? 53.7 kg), Intravenous, ONCE, 1 dose, On Wed03/24/11 at 0700 $ Given 03/24/2011 9:00 AM CDT 25 g documented in this encounter Care Teams Communications Department Chairperson Relationship Specialty Start Date End Date Vilma Spangler MD [address] [place] [address] PCP - General 01/05/11 documented as of this encounter
--- OUTSIDE RECORDS SUMMARY | 2024-10-28 05:58 | XMS_ITS | Encounter Summary ---
Author Organization [facility] Address [address] [place] [address] Care Team Providers Care Child Support Officer Name Role Phone Philip Gomez MD Primary Care Provider Reason for Visit * Reason Onset Date Comments Question 03/10/2010 Encounter Details Date Type Department Care Team (Late st Contact Info) Description 03/10/2010 Telephone [facility] [address] [place] [phone] Philip Chavez MD [address] [place] [phone] Question Social History Tobacco Use Types Packs/Day Years Used Date Smoking Tobacco: Never Alcohol Use Standard Drinks/Week Comments No 0 (1 standard drink = 0.6 oz pur e alcohol) Sex and Gender Information Value Date Recorded Sex Assigned at Not on file Gender Identity Not on file Sexual Orientation Not on file documented as of this encounter Miscellaneous Notes * Telephone Encounter - Philip Chavez MD - 03/10/2010 3:52 PM CDT Mom calling regarding potential outbreak of Mumps in school. Beka not immunized. Receiving IVIG every 4 weeks which likely gives patient some protection. Suggested the safest action would be to notattend school as school year is coming to close. Would need to make arrangements for completing exams. If outbreak contained then attendance of school would likely be OK. Left decision up to mom. documented in this encounter Plan of Treatment Not on file documented as of this encounter Visit Diagnoses Not on filedocumented in this encounter Care Teams Child Support Officer Relationship Specialty Start Date End Date Philip Gomez MD [address] [place] [address] PCP - General 11/15/09 07/09/10 documented as of this encounter
--- OUTSIDE RECORDS SUMMARY | 2024-10-28 05:58 | XMS_ITS | Encounter Summary ---
Author Organization [facility] Address [address] [place] [address] Care Team Providers Care Grounds Keeper Name Role Phone Vilma Spangler MD Primary Care Provider [phone] Encounter Details Date Type Department Care Team (Latest Contact Info) Description 01/05/2011 7:32 AM FAMILY PRACTICE DOCTOR - 01/05/2011 11:59 PM FAMILY PRACTICE DOCTOR Hospital Encounter [facility] at [address] [phone] Discharge Disposition: Home or Self Care Social [...] Sign Reading Time Taken Comments Blood Pressure 80/50 01/05/2011 7:00 AM FAMILY PRACTICE DOCTOR Pulse 64 01/05/2011 7:00 AM FAMILY PRACTICE DOCTOR Temperature 36 ??C (96.8 ??F) 01/05/2011 7:00 AM FAMILY PRACTICE DOCTOR Respiratory Rate 16 01/05/2011 7:00 AM FAMILY PRACTICE DOCTOR Oxygen Saturation 99% 01/05/2011 7:00 AM FAMILY PRACTICE DOCTOR Inhaled Oxygen Concentration - - Weight 53 kg (116 lb 13.5 oz) 01/05/2011 7:00 AM FAMILY PRACTICE DOCTOR Height 169 cm (5' 6.54 ) 01/05/2011 7:00 AM FAMILY PRACTICE DOCTOR Body Mass Index 18.56 01/05/2011 7:00 AM FAMILY PRACTICE DOCTOR Body Mass Index Percentile 7.62% 01/05/2011 7:0 0 AM FAMILY PRACTICE DOCTOR Growth Chart: CDC (Boys, 2-2 0 Years) documented in this encounter Medications at Time of Discharge Medication Sig Dispensed Refills Start Date End Date tacrolimus (PROGRAF) 1 MG capsule Take 1 mg by mouth 2 times daily. 03/14/2012 documented as of this encounter Progress Notes * Dann Robles RN - 01/05/2011 12:52 PM CST Pt to clinic with dad at side. VSS, pt denies complaints. PIV placed to L AC, blood sent to lab. Kylie in to see pt. IVIG held for today, follow up made and verbalized by pt LY PRACTICE DOCTOR * Philip Chavez MD - 01/05/2011 10:21 AM CST Recent Results (from the past 72 hour(s)) IGG BLOOD Collection Time 01/05/11 8:15 AM Component Value Range ??? IgG 754 639 - 1349 (mg/dl) CBC W MANUAL DIFFERENTIAL Collection Time 01/05/11 8:15 AM Component Value Range ??? WBC 5.69 4.5 - 11.0 (K/cumm) ??? RBC 5.13 4.50 - 5.30 (mill/cumm) ??? Hgb 16.7 (*) 13.0 - 16.0 (gm/dl) ??? Hct 46.3 37.0 - 49.0 (%) ??? MCV 90.3 78.0 - 98.0 (cu microns) ??? MCH 32.6 25.0 - 35.0 (uug) ??? MCHC 36.1 31.0 - 37.0 (%) ??? RDW 12.5 (%) ??? MPV 10.1 (fl) ??? Plt Ct K/CUMM 205 100 - 400 (K/cumm) ??? Manual Diff Comment To follow COMPREHENSIVE METABOLIC PANEL Collection Time 01/05/11 8:15 AM Component Value Range ??? Sodium 143 137 - 145 (mmol/L) ??? Potassium 4.1 3.5 - 5.1 (mmol/L) ??? Chloride 106 98 - 107 (mmol/L) ??? CO2 26.7 22 - 30 (mmol/L) ??? Glucose 84 70 - 106 (mg/dl) ??? BUN 13.4 8 - 21 (mg/dl) ??? Calcium 9.1 8.9 - 10.7 (mg/dl) ??? Bili Total 0.5 (*) 0.6 - 1.4 (mg/dl) ??? Protein Total 7.2 6.3 - 8.6 (gm/dl) ??? Albumin 4.1 3.7 - 5.6 (gm/dl) ??? ALT/SGPT 46 (*) 10 - 40 (Units/L) ??? AST/SGOT 35 10 - 45 (Units/L) ??? Alk Phos 107 65 - 260 (Units/L) ??? Creatinine 0.83 0.50 - 1.06 (mg/dl) IgG normal. Hold off on IVIG for now. Repeat in 1 month. LY PRACTICE DOCTOR documented in this encounter Miscellaneous Notes * Miscellaneous Scans - Document, Scanned - 06/26/2011 5:51 PM CDT documented in this encounter Plan of Treatment Scheduled Orders Name Type Priority Associated Diagnoses Orde r Schedule CBC W MANUAL DIFFERENTIAL Lab [facility] Hypogammaglobulinemia (HCC) Neutropenia associated with autoimmune disease (HCC) ONCE for 1 Occurrences starting 01/05/2011 until 01/05/2011 COMPREHENSIVE METABOLIC PANEL Lab [facility] Hypogammaglobulinemia (HCC) Neutropenia associated with autoimmune disease (HCC) ONCE for 1 Occurrences starting 01/05/2011 until 01/05/2011 documented as of this encounter Procedures Procedure Name Priority Date/Time Associated Diagnosis Comments CBC W MANUAL DIFFERENTIAL Timed 01/05/2011 8:15 AM FAMILY PRACTICE DOCTOR 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) COMPREHENSIVE METABOLIC PANEL Timed 01/05/2011 8:15 AM FAMILY PRACTICE DOCTOR Neutropenia associated with autoimmune disease (HCC) IGG BLOOD Timed 01/05/2011 8:15 AM FAMILY PRACTICE DOCTOR 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) documented in this encounter Results * (ABNORMAL) COMPREHENSIVE METABOLIC PANEL (01/05/2011 8:15 AM FAMILY PRACTICE DOCTOR) Pathologist [facility] Sodium 143 137 - 145 mmol/L [facility] Potassium 4.1 3.5 - 5.1 mmol/L [facility] Chloride 106 98 - 107 mmol/L [facility] CO2 26.7 22 - 30 mmol/L [facility] Glucose 84 70 - 106 mg/dl [facility] BUN 13.4 8 - 21 mg/dl [facility] Calcium 9.1 8.9 - 10.7 mg/dl [facility] Bilirubin Total 0.5(L) 0.6 - 1.4 mg/dl [facility] Protein Total 7.2 6.3 - 8.6 gm/dl [facility] Albumin 4.1 3.7 - 5.6 gm/dl [facility] ALT 46(H) 10 - 40 Units/L [facility] AST 35 10 - 45 Units/L [facility] Alkaline Phosphatase 107 65 - 260 Units/L [facility] Creatinine 0.83 0.50 - 1.06 mg/dl [facility] BLOOD SPECIMEN / Unknown 01/05/2011 8:15 AM FAMILY PRACTICE DOCTOR 01/05/2011 9:04 AM FAMILY PRACTICE DOCTOR Philip Chavez MD LAB - CHEMISTRY O RDERABLES Performing Organization Address City/State/[facility] Co de Phone Number [facility] [address] [place] [address] * (ABNORMAL) CBC W MANUAL DIFFERENTIAL (01/05/2011 8:15 AM FAMILY PRACTICE DOCTOR) Pathologist [facility] WBC 5.69 4.5 - 11.0 K/cumm [facility] RBC 5.13 4.50 - 5.30 mill/cumm [facility] Hemoglobin 16.7(H) 13.0 - 16.0 gm/dl [facility] Hematocrit 46.3 37.0 - 49.0 % [facility] MCV 90.3 78.0 - 98.0 cu microns [facility] MCH 32.6 25.0 - 35.0 uug [facility] MCHC 36.1 31.0 - 37.0 % [facility] RDW 12.5 % [facility] MPV 10.1 fl [facility] Platelet Count 205 100 - 400 K/cumm [facility] Comment Manual Diff Done [facility] Neutrophils % Manual 60 31 - 78 % [facility] Lymphocytes % Manual 16 13 - 54 % [facility] Monocytes % Manual 7 4 - 13 % [facility] Eosinophils % Manual 1 0 - 8 % [facility] Atypical Lymphocyte % Manual 16 % [facility] RBC Morphology Slight Anisocytosis, Poikylocytosis [facility] BLOOD SPECIMEN / Unknown 01/05/2011 8:15 AM FAMILY PRACTICE DOCTOR 01/05/2011 9:04 AM FAMILY PRACTICE DOCTOR Philip Chavez MD LAB - HEMATOLOGY ORDERABLES Performing Organization Address [facility] Co de Phone Number [facility] [address] [place] [address] * IGG BLOOD (01/05/2011 8:15 AM FAMILY PRACTICE DOCTOR) IgG 754 639 - 1349 mg/dl [facility] BLOOD SPECIMEN / Unknown 01/05/2011 8:15 AM FAMILY PRACTICE DOCTOR 01/05/2011 9:04 AM FAMILY PRACTICE DOCTOR Shivani Fernandez MD LAB - CHEMISTRY ORDE RABLES Performing Organization Address [facility] Co de Phone Number [facility] [address] [place] [address] documented in this encounter Visit Diagnoses Diagnosis Hypogammaglobulinemia (HCC) Hypogammaglobulinaemia, unspecified Neutropenia associated with autoimmune disease (HCC) Other neutropenia documented in this encounter Care Teams Grounds Keeper Relationship Specialty Start Date End Date Vilma Spangler MD [address] [place] [id number] PCP - General 01/05/11 documented as of this encounter
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
--- OUTSIDE RECORDS SUMMARY | 2024-10-28 05:58 | XMS_ITS | Encounter Summary ---
Author Organization [facility] Address [address] [place] [address] Care Team Providers Care Intel Analyst Name Role Phone Vilma Spangler MD Primary Care Provider Encounter Details Date Type Department Care Team (Latest Contact Info) Description 07/10/2010 7:59 AM CDT - 07/10/2010 11:59 PM CDT Hospital Encounter [facility] at [address] [phone] Discharge Disposition: Home or Self Care Social [...] Sign Reading Time Taken Comments Blood Pressure 96/68 07/10/2010 8:00 AM CDT Pulse 72 07/10/2010 8:00 AM CDT Temperature 36.3 ??C (97.4 ??F) 07/10/2010 8:00 AM CD T Respiratory Rate 20 07/10/2010 8:00 AM CDT Oxygen Saturation 98% 07/10/2010 8:00 AM CDT Inhaled Oxygen Concentration - - Weight 52.6 kg (115 lb 15.4 oz) 07/10/2010 8:00 AM CDT Height 168.6 cm (5' 6.38 ) 07/10/2010 8:00 AM CD T Body Mass Index 18.5 07/10/2010 8:00 AM CDT Body Mass Index Percentile 9.42% 07/10/2010 8:0 0 AM CDT Growth Chart: CDC (Boys, 2-2 0 Years) documented in this encounter Medications at Time of Discharge Medication Sig Dispensed Refills Start Date End Date tacrolimus (PROGRAF) 1 MG capsule Take 1 mg by mouth 2 times daily. 03/14/2012 documented as of this encounter Progress Notes * Papo Mcgrath RN - 07/10/2010 5:43 PM CDT Pt arrived in clinic, triaged, and assessed by RN. PIV #24 inserted into LAC without difficulty andlabs obtained. Examine per Dr. Chavez. Lab results reviewed and pt to not receive IVIG today. PIV d/c'd intact and bandaid applied. Pt d/c'd home ambulatory with mom. * Philip Chavez MD - 07/10/2010 9:25 AM CDT Hematology/Oncology Progress Note 07/10/2010 Beka Nichols PCP: Vilma Spangler MD Diagnosis: Autoimmune neutropenia/thrombocytopenia Interval History: Rituximab late 2008. Very good response to therapy with normalization of ANC and platelet count. EBV PCR negative post Rituximab. Patient with hypogammaglobulinemia post Rituxan. IVIG replacement discontinued and no IVIG has been given for 2 months. Feels overall well. No sinopulmonary symptoms. Episodic epigastric pain for last couple days. No nausea or diarrhea. No fevers. No Known Allergies Current outpatient prescriptions Medication [...] Palpitation: no Other: no 6) GI Pain: yes Jaundice: no Nausea: no Vomiting: no Diarrhea: [...] 13) Nutritional Status good Past Medical History: Liver transplant Chronic immune suppression Family Medical History: unchanged Physical Exam Constitutional: BP 96/68 Pulse 72 Temp 97.4 ??F Resp 20 Ht 1.686 m (5' 6.38 ) Wt 52.6 kg (115 lb 15.4 oz) SpO2 98% BSA (Calculated): 1.57 General Appearance: [...] Neuro: Cranial nerves: intact Strength: grossly normal Sensation: grossly intact Gait/cerebellar: normal DTR: symmetric Lab and/or Imaging Studies Recent Results (from the past 72 hour(s)) CBC W MANUAL DIFFERENTIAL Collection Time 07/10/10 8:25 AM Component Value Range ??? WBC 6.46 4.5 - 11.0 (K/cumm) ??? RBC 5.10 4.50 - 5.30 (mill/cumm) ??? Hgb 16.6 (*) 13.0 - 16.0 (gm/dl) ??? Hct 45.1 37.0 - 49.0 (%) ??? MCV 88.4 78.0 - 98.0 (cu microns) ??? MCH 32.5 25.0 - 35.0 (uug) ??? MCHC 36.8 31.0 - 37.0 (%) ??? RDW 13.5 (%) ??? MPV 10.1 (fl) ??? Plt Ct K/CUMM 182 100 - 400 (K/cumm) ??? Manual Diff Comment Done ??? Seg Manual 79 (*) 31 - 78 (%) ??? Lymph Manual 12 (*) 13 - 54 (%) ??? Woodson Manual 8 4 - 13 (%) ??? Eos Manual 1 0 - 8 (%) ??? RBC Morph Slight Anisocytosis ??? Comment Few Large Plts. HEPATIC FUNCTION PANEL Collection Time 07/10/10 8:25 AM Component Value Range ??? Bili Total 0.7 0.6 - 1.4 (mg/dl) ??? Bili Conj Direct N/D 0.0 - 0.3 (mg/dl) ??? Protein Total 6.5 6.3 - 8.6 (gm/dl) ??? Albumin 4.2 3.7 - 5.6 (gm/dl) ??? ALT/SGPT 35 10 - 40 (Units/L) ??? AST/SGOT 30 10 - 45 (Units/L) ??? Alk Phos 98 65 - 260 (Units/L) IGG BLOOD Collection Time 07/10/10 8:25 AM Component Value Range ??? IgG 560 (*) 639 - 1349 (mg/dl) BASIC METABOLIC PANEL (CALCIUM TOTAL) Collection Time 07/10/10 8:25 AM Component Value Range ??? Sodium 143 137 - 145 (mmol/L) ??? Potassium 4.4 3.5 - 5.1 (mmol/L) ??? Chloride 105 98 - 107 (mmol/L) ??? CO2 28.7 22 - 30 (mmol/L) ??? Glucose 80 70 - 106 (mg/dl) ??? BUN 13.4 8 - 21 (mg/dl) ??? Calcium 9.0 8.9 - 10.7 (mg/dl) ??? Creatinine 0.83 0.50 - 1.06 (mg/dl) Assessment 1. 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 Given Rituximab late 2008 with excellent response. Autoantibodies negative. Counts normalized. EBV PCR negative. 2. 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 IgG mildly depressed. Asymptomatic. 3. Liver Transplant: Continues on Tacrolimus. Chemistries fine Plan 1. Continue close follow up of counts 2. Hold IVIG for now. Consider IVIG with reoccurrence of sinopulmonary symptoms or further decreasein IgG. Check IgG in 1 month 3. Follow up with GI regarding transplant issues Follow-Up 4 weeks documented in this encounter Miscellaneous Notes * Miscellaneous Scans - Document, Scanned - 08/19/2010 8:29 PM CDT documented in this encounter Plan of Treatment Not on file documented as of this encounter Procedures Procedure Name Priority Date/Time Associated Diagnosis Comments ERYTHROPOIETIN Routine 07/10/2010 8:25 AM CDT Neutropenia Associated with Autoimmune Disease (HCC) CBC W MANUAL DIFFERENTIAL [facility] 07/10/2010 8:25 AM CDT Neutropenia Associated with Autoimmune Disease (HCC) BASIC METABOLIC PANEL (CALCIUM TOTAL) [facility] 07/10/2010 8:25 AM CDT Neutropenia Associated with Autoimmune Disease (HCC) HEPATIC FUNCTION PANEL Routine 0 8:25 AM CDT Neutropenia Associated with Autoimmune Disease (HCC) IGG BLOOD [facility] 07/10/2010 8:25 AM CDT Hypogammaglobuline justine (HCC) documented in this encounter Results * BASIC METABOLIC PANEL (CALCIUM TOTAL) (07/10/2010 8:25 AM CDT) Sodium 143 137 - 145 mmol/L [facility] Potassium 4.4 3.5 - 5.1 mmol/L [facility] Chloride 105 98 - 107 mmol/L [facility] CO2 28.7 22 - 30 mmol/L [facility] Glucose 80 70 - 106 mg/dl [facility] BUN 13.4 8 - 21 mg/dl [facility] Calcium 9.0 8.9 - 10.7 mg/dl [facility] Creatinine 0.83 0.50 - 1.06 mg/dl [facility] BLOOD SPECIMEN / Unknown 07/10/2010 8:25 AM CDT 07/10/2010 8:34 AM CDT Philip Chavez MD LAB - CHEMISTRY O RDERABLES Performing Organization Address [facility] de Phone Number [facility] [address] [place] [address] * (ABNORMAL) IGG BLOOD (07/10/2010 8:25 AM CDT) [facility] IgG 560(L) 639 - 1349 mg/dl [facility] BLOOD SPECIMEN / Unknown 07/10/2010 8:25 AM CDT 07/10/2010 8:34 AM CDT Philip Chavez MD LAB - CHEMISTRY O RDERABLES Performing Organization Address [facility] de Phone Number [facility] [address] [place] [address] * ERYTHROPOIETIN (07/10/2010 8:25 AM CDT) [facility] Erythropoietin 4 mU/ml [facility] Comment Ref Lab [facility] Comment: INTERPRETATION: Erythropoietin Normal serum [...] may benefit from therapy with recombinant EPO ([id number] [id number]). BLOOD SPECIMEN / Unknown 07/10/2010 8:25 AM CDT 07/10/2010 8:33 AM CDT Narrative [facility] - 07/13/2010 11:10 AM CDT 1 Resulting Agency Comment Performed By [facility] ? [address] ? [place], [place] [address] Philip Chavez MD LAB - CHEMISTRY O RDERABLES Performing Organization Address [facility] de Phone Number [facility] [address] [place] [phone] * HEPATIC FUNCTION PANEL (07/10/2010 8:25 AM CDT) Pathologist [facility] Bilirubin Total 0.7 0.6 - 1.4 mg/dl [facility] Bilirubin Direct N/D 0.0 - 0.3 mg/dl [facility] Protein Total 6.5 6.3 - 8.6 gm/dl [facility] Albumin 4.2 3.7 - 5.6 gm/dl [facility] ALT 35 10 - 40 Units/L [facility] AST 30 10 - 45 Units/L [facility] Alkaline Phosphatase 98 65 - 260 Units/L [facility] BLOOD SPECIMEN / Unknown 07/10/2010 8:25 AM CDT 07/10/2010 8:33 AM CDT Philip Chavez MD LAB - CHEMISTRY O RDERABLES Performing Organization Address [facility] de Phone Number [facility] [address] [place] [phone] * (ABNORMAL) CBC W MANUAL DIFFERENTIAL (07/10/2010 8:25 AM CDT) [facility] WBC 6.46 4.5 - 11.0 K/cumm [facility] RBC 5.10 4.50 - 5.30 mill/cumm [facility] Hemoglobin 16.6(H) 13.0 - 16.0 gm/dl [facility] Hematocrit 45.1 37.0 - 49.0 % [facility] MCV 88.4 78.0 - 98.0 cu microns [facility] MCH 32.5 25.0 - 35.0 uug [facility] MCHC 36.8 31.0 - 37.0 % [facility] RDW 13.5 % [facility] MPV 10.1 fl [facility] Platelet Count 182 100 - 400 K/cumm [facility] Comment Manual Diff Done [facility] Neutrophils % Manual 79(H) 31 - 78 % [facility] Lymphocytes % Manual 12(L) 13 - 54 % [facility] Monocytes % Manual 8 4 - 13 % [facility] Eosinophils % Manual 1 0 - 8 % [facility] RBC Morphology Slight Anisocytosis [facility] Comment Few Large Plts. [facility] BLOOD SPECIMEN / Unknown 07/10/2010 8:25 AM CDT 07/10/2010 8:34 AM CDT Philip Chavez MD LAB - HEMATOLOGY ORDERABLES Performing Organization Address City/State/[facility] Co de Phone Number [facility] [address] [place] [address] documented in this encounter Visit Diagnoses Diagnosis Hypogammaglobulinemia (HCC) Hypogammaglobulinaemia, unspecified Neutropenia associated with autoimmune disease (HCC) Other neutropenia documented in this encounter Care Teams Intel Analyst Relationship Specialty Start Date End Date Vilma Spangler MD [address] [address] PCP - General 07/10/10 08/10/10 documented as of this encounter
--- OUTSIDE RECORDS SUMMARY | 2024-10-28 05:58 | XMS_ITS | Encounter Summary ---
Author Organization [facility] Address [address] [place] [address] Care Team Providers Care Book Canvasser Name Role Phone Philip Gomez MD Primary Care Provider Encounter Details Date Type Department Care Team (Late st Contact Info) Description 01/22/2010 12:01 AM CDT - 01/22/2010 11:59 PM CDT Hospital Encounter [facility] at [address] [address] Philip Chavez MD [address] [place] [phone] Hematology Discharge Disposition: Home or Self Care Social History Tobacco Use Types Packs/Day Years Used Date Smoking Tobacco: Never Assessed Sex and Gender Information Value Date Recorded Sex Assigned at Not on file Gender Identity Not on file Sexual Orientation Not on file documented as of this encounter Plan of Treatment Scheduled Orders Name Type Priority Associated Diagnoses Orde r Schedule XR CHEST PA AND LATERAL Imaging ZAHRA ONCE for 1 Occur rences starting 01/22/2010 until 01/22/2010, 1 completed documented as of this encounter Procedures Procedure Name Priority Date/Time Associated Diagnosis Comments COMPREHENSIVE METABOLIC PANEL Routine 01/22/2010 10:15 AM CDT Immune Thrombocyt Purpra MAGNESIUM BLOOD Routine 01/22/2010 10:15 AM CDT Immune Thrombocyt Purpra TACROLIMUS LEVEL Routine 01/22/2010 10:0 0 AM CDT Liver Transplant Status CULTURE BLOOD Routine 01/22/2010 10:00 AM CDT Liver Transplant Status JOSE-DE LA CRUZ VIRUS PCR QUANT BLOOD/CSF Routine 01/22/2010 10:00 AM CDT Liver Transplant Status PTT Routine 01/22/2010 10:00 AM CDT Liver Transplant Status PT-INR Routine 01/22/2010 10:00 AM CDT Liver Transplant Status CBC W MANUAL DIFFERENTIAL Routine 01/22/2010 10:00 AM CDT Liver Transplant Status GGT Routine 01/22/2010 10:00 AM CDT Liver Transplant Status BILIRUBIN DIRECT Routine 01/22/2010 10:0 0 AM CDT Liver Transplant Status IGG BLOOD Routine 01/22/2010 10:00 AM CDT Liver Transplant Status XR CHEST 2VW ZAHRA 01/22/2010 9:55 AM CDT Liver Transplant Status documented in this encounter Results * (ABNORMAL) COMPREHENSIVE METABOLIC PANEL (01/22/2010 10:15 AM CDT) Sodium 141 137 - 145 mmol/L [facility] Potassium 4.7 3.5 - 5.1 mmol/L [facility] Chloride 103 98 - 107 mmol/L [facility] CO2 29.9(H) 18 - 27 mmol/L [facility] Glucose 86 70 - 106 mg/dl [facility] BUN 11.1 8 - 21 mg/dl [facility] Calcium 9.5 8.9 - 10.7 mg/dl [facility] Bilirubin Total 0.3(L) 0.6 - 1.4 mg/dl [facility] Protein Total 7.1 6.3 - 8.6 gm/dl [facility] Albumin 4.3 3.7 - 5.6 gm/dl [facility] ALT 23 10 - 40 Units/L [facility] AST 33 10 - 45 Units/L [facility] Alkaline Phosphatase 135 65 - 260 Units/L [facility] Creatinine 0.73 0.50 - 1.06 mg/dl [facility] Specimen Type/Condition no visible hemolysis [facility] BLOOD SPECIMEN / Unknown 01/22/2010 10:15 AM CDT Philip Chavez MD LAB - CHEMISTRY O RDERABLES Performing Organization Address City/[facility]/ZIP Co de Phone Number [facility] * MAGNESIUM BLOOD (01/22/2010 10:15 AM CDT) Pathologist [facility] Specimen Type/Conditio n no visible hemolysis [facility] Magnesium 1.9 1.6 - 2.3 mg/dl [facility] BLOOD SPECIMEN / Unknown 01/22/2010 10:15 AM CDT Philip Chavez MD LAB - CHEMISTRY O RDERABLES Performing Organization Address City/[facility]/ZIP Co de Phone Number [facility] * JOSE-BAR VIRUS DNA PCR QUANT (01/22/2010 10:00 AM CDT) [facility] Jose-De La Cruz Virus DNA PCR Quantitative NO EBV DNA detected NO EBV DNA detected Copies/mL [facility] Comment EBV PCR CARD INAL [facility] Comment: This assay has a lower limit [...] ??EBV levels can vary by speimen type: [facility] uses whole blood which is more [...] determined by the [facility]. ??It has not been cleared or [...] clinical laboratory testing. BLOOD SPECIMEN / Unknown 01/22/2010 10:00 AM CDT Philip Chavez MD LAB - MICROBIOLOG Y ORDERABLES Performing Organization Address City/[facility] Co de Phone Number [facility] * CULTURE BLOOD (01/22/2010 10:00 AM CDT) Report [facility] Comment: Final - BOTTLE(S) RECEIVED- ANAEROBIC/ANTIBIOTIC REMOVAL BOTTLES CULTURE No growth PERIPHERAL BLOOD / Unknown 01/22/2010 10:00 AM CDT Philip Chavez MD LAB - MICROBIOLOG Y ORDERABLES Performing Organization Address [facility] Co de Phone Number [facility] * TACROLIMUS LEVEL (01/22/2010 10:00 AM CDT) Tacrolimus 5.1 SEE BELOW ng/ml [facility] Comment: Nephrology + Cardiology 3.0-12.0 Gastroenterology 2.0-15.0 BLOOD SPECIMEN / Unknown 01/22/2010 10:00 AM CDT Philip Chavez MD LAB - THERAPEUTIC DRUG MONITORING ORDERABLES Performing Organization Address [facility] Co de Phone Number [facility] * (ABNORMAL) GGT (01/22/2010 10:00 AM CDT) GGT 35(H) 11 - 31 Units/L [facility] Specimen Type/Conditio n no visible hemolysis [facility] BLOOD SPECIMEN / Unknown 01/22/2010 10:00 AM CDT Philip Chavez MD LAB - CHEMISTRY O RDERABLES Performing Organization Address [facility]/ZIP Co de Phone Number [facility] * BILIRUBIN DIRECT (01/22/2010 10:00 AM CDT) Bilirubin Direct ND 0.0 - 0.3 mg/dl [facility] Specimen Type/Conditio n no visible hemolysis [facility] BLOOD SPECIMEN / Unknown 01/22/2010 10:00 AM CDT Philip Chavez MD LAB - CHEMISTRY O RDERABLES Performing Organization Address [facility]/ZIP Co de Phone Number [facility] * (ABNORMAL) IGG BLOOD (01/22/2010 10:00 AM CDT) IgG 558(L) 639 - 1349 mg/dl [facility] BLOOD SPECIMEN / Unknown 01/22/2010 10:00 AM CDT Philip Chavez MD LAB - CHEMISTRY O RDERABLES Performing Organization Address [facility] Co de Phone Number [facility] * PTT (01/22/2010 10:00 AM CDT) PTT 29 23-36 seconds seconds [facility] BLOOD SPECIMEN / Unknown 01/22/2010 10:00 AM CDT Philip Chavez MD LAB - COAGULATION ORDERABLES Performing Organization Address [facility] de Phone Number [facility] * PT-INR (01/22/2010 10:00 AM CDT) PT 13.3 12.2-14.5 seconds seconds [facility] INR 1.0 0.8 - 1.2 [facility] BLOOD SPECIMEN / Unknown 01/22/2010 10:00 AM CDT Philip Chavez MD LAB - COAGULATION ORDERABLES Performing Organization Address [facility] de Phone Number [facility] * (ABNORMAL) CBC W MANUAL DIFFERENTIAL (01/22/2010 10:00 AM CDT) WBC 2.14(LL) 4.5 - 14.5 K/cumm [facility] RBC 5.13 4.50 - 5.30 mill/cumm [facility] Hemoglobin 16.1(H) 13.0 - 16.0 gm/dl [facility] Hematocrit 45.2 37.0 - 49.0 % [facility] MCV 88.1 78.0 - 98.0 cu microns [facility] MCH 31.4 25.0 - 35.0 uug [facility] MCHC 35.6 31.0 - 37.0 % [facility] RDW 12.2 % [facility] MPV 9.8 fl [facility] Platelet Count 226 100 - 400 K/cumm [facility] Comment Manual Diff Done [facility] Band % Manual 6 % [facility] Neutrophils % Manual 7(L) 24 - 66 % [facility] Lymphocytes % Manual 51 22 - 61 % [facility] Monocytes % Manual 26(H) 3 - 15 % [facility] Eosinophils % Manual 5 0 - 10 % [facility] Atypical Lymphocyte % Manual 5 % [facility] RBC Morphology Slight Anisocytosis Poikylocytosis Hypochromia, Rare Ovalocytes Stomatocytes, [facility] BLOOD SPECIMEN / Unknown 01/22/2010 10:00 AM CDT Philip Chavez MD LAB - HEMATOLOGY ORDERABLES Performing Organization Address City/State/[facility] Co de Phone Number [facility] * XR CHEST PA AND LATERAL (01/22/2010 9:55 AM CDT) Anatomical Region Laterality Modality Chest Other 01/22/2010 9:55 AM CDT Narrative 01/22/2010 5:54 PM CDT Chest PA, lateral Comparison is made to September 30, 2009. The lungs are clear. There is no pleural effusion or pneumothorax. The heart size is normal. The bony thorax is unremarkable. Surgical clips remain in the right upper quadrant. Impression- No acute pulmonary disease. Светлана Rios M.D. ? Reading Radiologist- YSABEL MOSES MD ? Releasing Radiologist- YSABEL MOSES MD ? Released Date Time- 01/22/101754 ? Waste Paper Hammermill Operator- YUE RIOS MD ? - PHILIP CHAVEZ ?BRITTNEY- PHILIP CHAVEZ CHRISTOPHER W ?CON- PCP- PHILIP GOMEZ ?SCP- Procedure Note Seth Moses MD - 01/22/2010 Chest PA, lateral Comparison is made to September 30, 2009. The lungs are clear. There is no pleural effusion or pneumothorax. The heart size is normal. The bony thorax is unremarkable. Surgical clips remain in the right upper quadrant. Impression- No acute pulmonary disease. Светлана Rios M.D. Reading Radiologist- YSABEL MOSES MD Releasing Radiologist- YSABEL MOSES MD Released Date Time- 01/22/10 4189 Waste Paper Hammermill Operator- YUE RIOS MD - PHILIP CHAVEZ CHRISTOPHER W ORD- HUGGE, CHRISTOPHER W CON- PCP- PHILIP GOMEZ SCP- Philip Chavez MD DIAGNOSTIC IMAGIN G ORDERABLES documented in this encounter Visit Diagnoses Diagnosis Liver transplant status Liver replaced by transplant Immune thrombocyt purpra Immune thrombocytopenic purpura documented in this encounter Care Teams Book Canvasser Relationship Specialty [place] [address] [place] [id number] PCP - General 11/15/09 07/09/10 documented as of this encounter
--- OUTSIDE RECORDS SUMMARY | 2024-10-28 05:58 | XMS_ITS | Encounter Summary ---
Author Organization [facility] Address [address] [place] [address] Care Team Providers Care Group Burner Machine Name Role Phone Philip Gomez MD Primary Care Provider Encounter Details Date Type Department Care Team (Late st Contact Info) Description 01/24/2010 12:01 AM CDT - 01/24/2010 11:59 PM CDT Hospital Encounter The [facility] at [address] [address] Philip Chavez MD [address] [place] [phone] Hematology Discharge Disposition: Home or Self Care Social History Tobacco Use Types Packs/Day Years Used Date Smoking Tobacco: Never Assessed Sex and Gender Information Value Date Recorded Sex Assigned at Not on file Gender Identity Not on file Sexual Orientation Not on file documented as of this encounter Progress Notes * Houston Chao MD - 01/22/2010 12:[facility] Dear Dr. Gomez: I had the pleasure of evaluating Beka Nichols in our liver transplant clinic at the [facility] onJanuary 22, 2010. Beka is a pleasant, almost 15 years old teenager with history of autoimmune hepatitis. He received a liver transplant in 1998. The patient has a diagnosis of autoimmune thrombocytopenia and autoimmune neutropenia. The patient has been followed by Dr. Chavez. The cytopenias are thought to be tacrolimus induced. He did have very good response to rituximab - for infusions. Platelet numbers went from 24,000 to close to 200,000. Now he has a viral syndrome but has no fever. He does complain of pain in his right ear and sore throat. The patient has gained 2 pounds in 4 months. Blood pressure is 110/80. MEDICATIONS: Tacrolimus 1 mg b.i.d. The patient received a course of rituximab x4 since October once a week in October 2009. LABORATORY: Recent laboratories were white cell count in November was 4.4, hemoglobin 15.6, platelets 194,000, BUN was 12, AST 20, ALT 33 and lipase 123, albumin 4.4, last EBV was negative. PHYSICAL EXAMINATION: Weight is 50 5.5 kg, blood pressure 110/80. Cooperative teenager. The patient has mild erythema on right tympanic membrane. No bulges. Throat with erythema. No exudate. Neck is supple. The patient has a nose congestion. Throat is clear. Heart: S1 and S2 no murmur. Abdomen: Soft, benign. Wound is intact. No organomegaly. 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 PLAN: I am glad to see that he had a good response to rituximab IV. He will have routine labs today. The patient was put on Augmentin for right ear infection. He will be closely followed by Dr. Chavez. I would like to see him back in 6 months. We will keep tacrolimus levels low, around 3. Please call me if you have questions. Sincerely. Dictated By: HOUSTON CHAO MD Electronically Signed 01/23/2010 08:54:46 CDT [facility]/[employer] JOB ID: [id number] cc: PHILIP GOMEZ MD documented in this encounter Procedure Notes * Document, Scanned - 12/28/2011 8:57 AM CSTAssociated Order(s): PATHOLOGY/CYTOLOGY REPORT ORDER [facility] ADMINISTRATOR documented in this encounter Plan of Treatment Not on file documented as of this encounter Procedures Procedure Name Priority Date/Time Associated Diagnosis Comments PATHOLOGY/CYTOLOGY REPORT ORDER 12/28/2011 9:[address] ADMINISTRATOR CYTOMEGALOVIRUS DNA RT-PCR QUANT Routine 01/24/2010 9:45 AM CDT Immune Thrombocyt Purpra PARVOVIRUS B19 PCR Routine 01/24/2010 9: 45 AM CDT Immune Thrombocyt Purpra CBC W MANUAL DIFFERENTIAL Routine 01/24/2010 9:45 AM CDT Immune Thrombocyt Purpra documented in this encounter Results * PATHOLOGY/CYTOLOGY REPORT ORDER (12/28/2011 9:[address] ADMINISTRATOR) Narrative Transcriptions Document, Scanned - 12/28/2011 8:57 AM CST Scanned Document LAB - PATHOLOGY/CYTO LOGY ORDERABLES * PARVOVIRUS B19 PCR (01/24/2010 9:45 AM CDT) Parvovirus B19 PCR Not Detected [facility] Source Parvovirus BLOOD [facility] Comment Ref Lab CARD [facility] Comment: NOT DETECTED - A negative result does not rule out the presence of PCR inhibitors in the patient specimen or assay specific nucleic acid in concentrations below the level of detection by the assay. Test Information: Parvovirus B-19, by PCR This test was developed and its performance characteristics determined by [facility]. The U.S. Food and Drug Administration has not approved or cleared this test; however, FDA clearance or approval is not currently required for clinical use. The results are not intended to be used as the sole means for clinical diagnosis or patient management decisions. BLOOD SPECIMEN / Unknown 01/24/2010 9:45 AM CDT Narrative [facility] - 01/28/2010 8:06 AM CDT 1 Resulting Agency Comment Performed By [facility] ? [address] ? [place], [place] [address] Philip Chavez MD LAB - CHEMISTRY O RDERABLES Performing Organization Address [facility]/ZIP Co de Phone Number [facility] * CMV DNA REAL-TIME PCR QUANTITATIVE (01/24/2010 9:45 AM CDT) Pathologist [facility] Cytomegalovirus DNA Quantitative PCR copies/ml NO CMV DNA detected NO CMV DNA detected Copies/mL [facility] Interpretation CMV DNA Quantitative PCR [facility] Comment: This assay has a lower limit of detection of 1170 copies per ml (log 10 value 3.07). Accurate quantitation is available in the range of 1170 copies per ml to 6,086,533 copies per ml (3.07 log 10 copies per ml to 6.8 log 10 copies per ml). Specimens with copy numbers below 1170 copies per ml will be reported as Positive for CMV DNA but below the level of accurate quantitation. Results from different laboratories may not be comparable. ??CMV levels can vary by specimen type; [facility] uses whole blood which is more sensitive than plasma for detection of CMV DNA. ??Also, the lack of a universal quantititative standard contributes to interlaboratory variability. ??Therefore, caution should be exercised when attempting to compare results obtained from different laboratories. ??It is recommended that for tracking relative changes in CMV DNA levels in a particular patient, the same laboratory should test the specimen. BLOOD SPECIMEN / Unknown 01/24/2010 9:45 AM CDT Philip Chavez MD LAB - MICROBIOLOG Y ORDERABLES Performing Organization Address [facility]/ZIP Co de Phone Number [facility] * (ABNORMAL) CBC W MANUAL DIFFERENTIAL (01/24/2010 9:45 AM CDT) Pathologist [facility] WBC 9.62 4.5 - 14.5 K/cumm [facility] RBC 4.90 4.50 - 5.30 mill/cumm [facility] Hemoglobin 15.5 13.0 - 16.0 gm/dl [facility] Hematocrit 43.0 37.0 - 49.0 % [facility] MCV 87.8 78.0 - 98.0 cu microns [facility] MCH 31.6 25.0 - 35.0 uug [facility] MCHC 36.0 31.0 - 37.0 % [facility] RDW 12.4 % [facility] MPV 9.8 fl [facility] Platelet Count 186 100 - 400 K/cumm [facility] Comment Manual Diff Done [facility] Band % Manual 20 % [facility] Neutrophils % Manual 21(L) 24 - 66 % [facility] Lymphocytes % Manual 13(L) 22 - 61 % [facility] Monocytes % Manual 28(H) 3 - 15 % [facility] Eosinophils % Manual 4 0 - 10 % [facility] Atypical Lymphocyte % Manual 6 % [facility] [place] Manual 5 % [facility] Myelocytes % Manual 3 % [facility] RBC Morphology Slight Anisocytosis, Polychromasia, Few Stomatocytes [facility] WBC Morph Slight Toxic Granulation, Marked Dohle Bodies, Few Vacuolation [facility] BLOOD SPECIMEN / Unknown 01/24/2010 9:45 AM CDT Philip Chavez MD LAB - HEMATOLOGY ORDERABLES [facility] documented in this encounter Visit Diagnoses Diagnosis Immune thrombocyt purpra Immune thrombocytopenic purpura documented in this encounter Care Teams Group Burner Machine Relationship Specialty Start Date End Date Philip Gomez MD [address] [place] [address] PCP - General 11/15/09 07/09/10 documented as of this encounter
--- OUTSIDE RECORDS SUMMARY | 2024-10-28 05:58 | XMS_ITS | Encounter Summary ---
Author Organization [facility] Address [address] [place] [address] Care Team Providers Care Commissioner Conservation Of Resources Name Role Phone Vilma Spangler MD Primary Care Provider [phone] Reason for Visit * Reason Onset Date Comments Reminder Call 02/24/2011 Encounter Details Date Type Department Care Team (Late st Contact Info) Description 02/24/2011 Telephone [facility] - Transplant Services [address] [place] [phone] Batool Mcdermott, RN Reminder Call Social History Tobacco Use Types Packs/Day Years [...] Miscellaneous Notes * Telephone Encounter - Batool Mdcermott, RN - 02/24/2011 5:00 PM CDT Left message for mom to please have standing liver transplant labs drawn when Beka comes in to the [facility] in March. Asked that she contact the office for questions or concerns. Standing labs in Epic. documented in this encounter Plan of Treatment Not on file documented as of this encounter Visit Diagnoses Not on filedocumented in this encounter Care Teams Commissioner Conservation Of Resources Relationship Specialty Start Date End Date Vilma Spangler MD [address] [place] [address] PCP - General 01/05/11 documented as of this encounter
--- OUTSIDE RECORDS SUMMARY | 2024-10-28 05:58 | XMS_ITS | Encounter Summary ---
Author Organization [facility] Address [address] [place] [address] Care Team Providers Care Monorail Charger Operator Name Role Phone Unavailable Primary Care Provider Unavailabl e Encounter Details Date Type Department Care Team (Late st Contact Info) Description 10/29/2009 12:01 AM MANAGER CATH LAB - 10/29/2009 12:02 AM [facility] Hospital Encounter Philip Chavez MD [address] [place] [phone] Hematology Discharge Disposition: Home or Self Care [...]
--- OUTSIDE RECORDS SUMMARY | 2024-10-28 05:58 | XMS_ITS | Encounter Summary ---
Author Organization [facility] Address [address] [place] [address] Care Team Providers Care Senior Mechanical Development Engineer Name Role Phone Philip Gomez MD Primary Care Provider Encounter Details Date Type Department Care Team (Latest Contact Info) Description 10/21/2010 7:25 AM UNIT TECHNICIAN - 10/21/2010 11:59 PM UNIT TECHNICIAN Hospital Encounter [facility] at [address] [phone] Discharge Disposition: Home or Self Care Social [...] Sign Reading Time Taken Comments Blood Pressure 88/52 10/21/2010 11:00 AM UNIT TECHNICIAN Pulse 72 10/21/2010 11:00 AM UNIT TECHNICIAN Temperature 35.8 ??C (96.4 ??F) 10/21/2010 8:00 AM CS T Respiratory Rate 20 10/21/2010 11:0 0 AM UNIT TECHNICIAN Oxygen Saturation - - Inhaled Oxygen Concentration - - Weight 53.6 kg (118 lb 2.7 oz) 10/21/2010 8:00 A M UNIT TECHNICIAN Height 169 cm (5' 6.54 ) 10/21/2010 8:00 AM UNIT TECHNICIAN Body Mass Index 18.77 10/21/2010 8:00 AM UNIT TECHNICIAN Body Mass Index Percentile 10.46% 10/21/2010 8:0 0 AM UNIT TECHNICIAN Growth Chart: CDC (Boys, 2-2 0 Years) documented in this encounter Medications at Time of Discharge Medication Sig Dispensed Refills Start Date End Date tacrolimus (PROGRAF) 1 MG capsule Take 1 mg by mouth 2 times daily. 03/14/2012 documented as of this encounter Progress Notes * Papo Mcgrath RN - 10/21/2010 2:34 PM CST Pt arrived in clinic, triaged, and assessed by RN. Here for scheduled IVIG infusion. States he is doing well at home. PIV #24 inserted into LAC without difficulty and labs obtained. NS flushes easily. Tylenol and benadryl given PO prior to infusion. IVIG infusion started and titrated per orders. Pttolerated well with VSS throughout. Examined per Dr Malloy. Infusion completed. PIV d/c'd intact and bandaid applied. Discharge instructions given to dad and pt to RTC in 4 weeks for next infusion. Pt d/c'd home ambulatory with dad and sister. TECHNICIAN * Cindi Malloy MD - 10/21/2010 11:39 AM CST Hematology/Oncology Progress/Admission Note 10/21/2010 Beka Nichols PCP: Philip Gomez MD Diagnosis: [...] Chavez MD Last Dose: 20 g at 10/21/10 0900 ??? acetaminophen (TYLENOL) tablet 650 mg 650 mg Oral Once Philip Chavez MD ??? diphenhydrAMINE (BENADRYL) tablet 50 mg 50 mg Oral Once Philip Chavez MD ??? dextrose 5 % infusion Intravenous Once Cindi Malloy MD Home medications reviewed and all medications [...] Status good Interval History Has been doing well recently. Denies recent fevers, URI symptoms, bruising/mucosal bleeding. Tolerated IVIG without complications, last visit. 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 Has been on tacrolimus. H/o autoimmune cytopenias noted in last 2 yrs. Received Rituxan in October 2009. Currently on IVIG replacement. Family Medical History: Grandparents with h/o lung cancer. Mom had h/o colon cancer. Physical Exam Constitutional: BP 92/56 Pulse 64 Temp 96.4 ??F Resp 18 Ht 1.69 m (5' 6.54 ) Wt 53.6 kg (118 lb 2.7 oz) BSA (Calculated): 1.59 General Appearance: No acute [...] Recent Results (from the past 12 hour(s)) CBC W MANUAL DIFFERENTIAL Collection Time 10/21/10 8:10 AM Component Value Range ??? WBC 8.77 4.5 - 11.0 (K/cumm) ??? RBC 5.27 4.50 - 5.30 (mill/cumm) ??? Hgb 17.1 (*) 13.0 - 16.0 (gm/dl) ??? Hct 46.5 37.0 - 49.0 (%) ??? MCV 88.2 78.0 - 98.0 (cu microns) ??? MCH 32.4 25.0 - 35.0 (uug) ??? MCHC 36.8 31.0 - 37.0 (%) ??? RDW 12.8 (%) ??? MPV 10.4 (fl) ??? Plt Ct K/CUMM 196 100 - 400 (K/cumm) ??? Manual Diff Comment Done ??? Seg Manual 79 (*) 31 - 78 (%) ??? Lymph Manual 10 (*) 13 - 54 (%) ??? [place] Manual 9 4 - 13 (%) ??? Atyp Lymph Manual 2 (%) ??? RBC Morph Slight Anisocytosis, Poikylocytosis COMPREHENSIVE METABOLIC PANEL Collection Time 10/21/10 8:10 AM Component Value Range ??? Sodium 144 137 - 145 (mmol/L) ??? Potassium 4.1 3.5 - 5.1 (mmol/L) ??? Chloride 106 98 - 107 (mmol/L) ??? CO2 29.1 22 - 30 (mmol/L) ??? Glucose 59 (*) 70 - 106 (mg/dl) ??? BUN 16.3 8 - 21 (mg/dl) ??? Calcium 9.3 8.9 - 10.7 (mg/dl) ??? Bili Total 0.4 (*) 0.6 - 1.4 (mg/dl) ??? Protein Total 7.5 6.3 - 8.6 (gm/dl) ??? Albumin 4.6 3.7 - 5.6 (gm/dl) ??? ALT/SGPT 45 (*) 10 - 40 (Units/L) ??? AST/SGOT 37 10 - 45 (Units/L) ??? Alk Phos 122 65 - 260 (Units/L) ??? Creatinine 0.83 0.50 - 1.06 (mg/dl) GGT Collection Time 10/21/10 8:10 AM Component Value Range ??? GGT 31 11 - 31 (Units/L) BILIRUBIN DIRECT Collection Time 10/21/10 8:10 AM Component Value Range ??? Bili Conj Direct ND 0.0 - 0.3 (mg/dl) IMMUNOGLOBULINS PANEL Collection Time 10/21/10 8:10 AM Component Value Range ??? IgG 705 639 - 1349 (mg/dl) ??? IGA 19 (*) 70 - 312 (mg/dl) ??? IgM 73 52 - 242 (mg/dl) Procedures Venepuncture/PIV placement. Assessment 15 yo with h/o liver transplant for auto-immune hepatitis in 1998, followed by Hematology for auto-immune cytopenias thought to be secondary to Tacrolimus. Blood counts stable apart from mild polycythemia. Mild lymphopenia noted. Here for IVIG replacement. Plan IVIG 20 gms IV. Premed : tylenol, benadryl. Lymphocyte subsets sent today Would strongly consider PJP prophylaxis if has persistent lymphopenia leena if low CD4 count on lymphocyte subsets. Follow-Up Return in 4 weeks for IVIG. TECHNICIAN documented in this encounter Miscellaneous Notes * Miscellaneous Scans - Document, Scanned - 11/16/2010 4:32 PM UNIT TECHNICIAN documented in this encounter Plan of Treatment Not on file documented as of this encounter Procedures Procedure Name Priority Date/Time Associated Diagnosis Comments JOSE-DE LA CRUZ VIRUS PCR QUALITATIVE Routine 10/21/2010 8:10 AM UNIT TECHNICIAN Neutropenia associated with autoimmune disease (HCC) ACQUIRED IMMUNE DEFICIENCY PANEL Routine 10/21/2010 8:10 AM UNIT TECHNICIAN Hypogammaglobuline justine (HCC) CBC W MANUAL DIFFERENTIAL Timed 10/21/2010 8:10 AM UNIT TECHNICIAN Neutropenia associated with autoimmune disease (HCC) Hypogammaglobuline justine (HCC) COMPREHENSIVE METABOLIC PANEL Timed 10/21/2010 8:10 AM UNIT TECHNICIAN Neutropenia associated with autoimmune disease (HCC) GGT Routine 10/21/2010 8:10 AM UNIT TECHNICIAN Neutropenia associated with autoimmune disease (HCC) BILIRUBIN DIRECT Timed 10/21/2010 8:10 AM UNIT TECHNICIAN Neutropenia associated with autoimmune disease (HCC) IMMUNOGLOBULINS IGG/IGM/IGA PANEL Timed 10/21/2010 8:10 AM UNIT TECHNICIAN Hypogammaglobuline justine (HCC) documented in this encounter Results * ACQUIRED IMMUNE DEFICIENCY PANEL (10/21/2010 8:10 AM UNIT TECHNICIAN) Pathologist [facility] AIDS/ARC Panel See Scanned Report [facility] BLOOD SPECIMEN / Unknown 10/21/2010 8:10 AM UNIT TECHNICIAN 10/21/2010 8:18 AM UNIT TECHNICIAN Narrative Resulting Agency Comment Performed By [facility] Flow Cytometry Laboratory ? [facility] Dept of Path. Flow Cytometry ? [address] [facility] [facility]. Cindi Malloy MD LAB - HEMATOLOGY ORD ERABLES Performing Organization Address City/[facility] Co de Phone Number [facility] [address] [place] [address] * (ABNORMAL) IMMUNOGLOBULINS PANEL (10/21/2010 8:10 AM UNIT TECHNICIAN) [facility] IgG 705 639 - 1349 mg/dl [facility] IgA 19(L) 70 - 312 mg/dl [facility] IgM 73 52 - 242 mg/dl [facility] BLOOD SPECIMEN / Unknown 10/21/2010 8:10 AM UNIT TECHNICIAN 10/21/2010 8:18 AM UNIT TECHNICIAN Cindi Malloy MD LAB - CHEMISTRY ORDE RABJIM Performing Organization Address City/[facility]/ZIP Co de Phone Number [facility] [address] [place] [address] * BILIRUBIN DIRECT (10/21/2010 8:10 AM UNIT TECHNICIAN) Pathologist [facility] Bilirubin Direct ND 0.0 - 0.3 mg/dl [facility] BLOOD SPECIMEN / Unknown 10/21/2010 8:10 AM UNIT TECHNICIAN 10/21/2010 8:18 AM UNIT TECHNICIAN Cindi Malloy MD LAB - CHEMISTRY MACIE HERNÁNDEZ Performing Organization Address City/[facility]/ZIP Co de Phone Number [facility] [address] [place] [address] * GGT (10/21/2010 8:10 AM UNIT TECHNICIAN) GGT 31 11 - 31 Units/L [facility] BLOOD SPECIMEN / Unknown 10/21/2010 8:10 AM UNIT TECHNICIAN 10/21/2010 8:18 AM UNIT TECHNICIAN Cindi Malloy MD LAB - CHEMISTRY MACIE HERNÁNDEZ Performing Organization Address [facility] Co de Phone Number [facility] [address] [place] [phone] * (ABNORMAL) COMPREHENSIVE METABOLIC PANEL (10/21/2010 8:10 AM UNIT TECHNICIAN) Pathologist [facility] Sodium 144 137 - 145 mmol/L [facility] Potassium 4.1 3.5 - 5.1 mmol/L [facility] Chloride 106 98 - 107 mmol/L [facility] CO2 29.1 22 - 30 mmol/L [facility] Glucose 59(L) 70 - 106 mg/dl [facility] BUN 16.3 8 - 21 mg/dl [facility] Calcium 9.3 8.9 - 10.7 mg/dl [facility] Bilirubin Total 0.4(L) 0.6 - 1.4 mg/dl [facility] Protein Total 7.5 6.3 - 8.6 gm/dl [facility] Albumin 4.6 3.7 - 5.6 gm/dl [facility] ALT 45(H) 10 - 40 Units/L [facility] AST 37 10 - 45 Units/L [facility] Alkaline Phosphatase 122 65 - 260 Units/L [facility] Creatinine 0.83 0.50 - 1.06 mg/dl [facility] BLOOD SPECIMEN / Unknown 10/21/2010 8:10 AM UNIT TECHNICIAN 10/21/2010 8:18 AM UNIT TECHNICIAN Cindi Malloy MD LAB - CHEMISTRY MACIE HERNÁNDEZ Performing Organization Address City/[facility] Co de Phone Number [facility] [address] [place] [address] * (ABNORMAL) CBC W MANUAL DIFFERENTIAL (10/21/2010 8:10 AM UNIT TECHNICIAN) [facility] WBC 8.77 4.5 - 11.0 K/cumm [facility] RBC 5.27 4.50 - 5.30 mill/cumm [facility] Hemoglobin 17.1(H) 13.0 - 16.0 gm/dl [facility] Hematocrit 46.5 37.0 - 49.0 % [facility] MCV 88.2 78.0 - 98.0 cu microns [facility] MCH 32.4 25.0 - 35.0 uug [facility] MCHC 36.8 31.0 - 37.0 % [facility] RDW 12.8 % [facility] MPV 10.4 fl [facility] Platelet Count 196 100 - 400 K/cumm [facility] Comment Manual Diff Done [facility] Neutrophils % Manual 79(H) 31 - 78 % [facility] Lymphocytes % Manual 10(L) 13 - 54 % [facility] Monocytes % Manual 9 4 - 13 % [facility] Atypical Lymphocyte % Manual 2 % [facility] RBC Morphology Slight Anisocytosis, Poikylocytosis [facility] BLOOD SPECIMEN / Unknown 10/21/2010 8:10 AM UNIT TECHNICIAN 10/21/2010 8:18 AM UNIT TECHNICIAN Cindi Malloy MD LAB - HEMATOLOGY ORD JACE Performing Organization Address [facility] Co de Phone Number [facility] [address] [place] [address] * JOSE-BAR VIRUS PCR QUALITATIVE BLOOD (10/21/2010 8:10 AM UNIT TECHNICIAN) [facility] Jose-De La Cruz Virus PCR NO EBV DNA Detected Not Detected [facility] Comment EBV PCR [facility] Comment: This assay has a lower [...] ??EBV levels can vary by speimen type: [facility] uses whole blood which is more [...] characteristics determined by the Virology Laboratory of [facility]. ??It has not been cleared or [...] clinical laboratory testing. BLOOD SPECIMEN / Unknown 10/21/2010 8:10 AM UNIT TECHNICIAN 10/21/2010 8:19 AM UNIT TECHNICIAN Philip Chavez MD LAB - MICROBIOLOG Y ORDERABLES [facility] [address] [place] [place] [address] documented in this encounter Visit Diagnoses Diagnosis Neutropenia associated with autoimmune disease (HCC) Other neutropenia Hypogammaglobulinemia (HCC) Hypogammaglobulinaemia, unspecified documented in this encounter Administered Medications Inactive Administered Medications - up to 3 most recent administrations Medication Order MAR Action Action Date Dose Rate Site acetaminophen (TYLENOL) tablet 650 mg 650 mg, Oral, ONCE, 1 dose, On Wed10/21/10 at 0800, Maximum allowable Acetaminophen amount = 4 Grams / 24 hours. $ Given 10/21/2010 9:15 AM UNIT TECHNICIAN 650 mg diphenhydrAMINE (BENADRYL) tablet 50 mg 50 mg, Oral, ONCE, 1 dose, On Wed10/21/10 at 0800 $ Given 10/21/2010 9:15 AM UNIT TECHNICIAN 50 mg immune globulin (human) (GAMMAGARD;GAMUNEX;PRIVIGEN) 10 % infusion 20 g 20 g, Intravenous, ONCE, 1 dose, On Wed10/21/10 at 0900 $ Given 10/21/2010 9:00 AM UNIT TECHNICIAN 20 g documented in this encounter Care Teams Senior Mechanical Development Engineer Relationship Specialty Start Date End Date Philip Gomez MD [address] [place] [address] PCP - General 08/11/10 01/04/11 documented as of this encounter
--- OUTSIDE RECORDS SUMMARY | 2024-10-28 05:58 | XMS_ITS | Encounter Summary ---
Author Organization [facility] Address [address] [address] Care Team Providers Care Coroner Forensic Technician Name Role Phone Philip Gomez MD Primary Care Provider Encounter Details Date Type Department Care Team (Latest Contact Info) Description 03/18/2010 7:59 AM CDT - 03/18/2010 11:59 PM CDT Hospital Encounter The [facility] at [address] [phone] Discharge Disposition: Home or Self Care Social [...] Reading Time Taken Comments Blood Pressure 100/60 03/18/2010 8:00 AM CDT Pulse 68 03/18/2010 8:00 AM CDT Temperature 36 ??C (96.8 ??F) 03/18/2010 8:00 AM CDT Respiratory Rate 16 03/18/2010 8:00 AM CDT Oxygen Saturation 98% 03/18/2010 8:00 AM CDT Inhaled Oxygen Concentration - - Weight 54.2 kg (119 lb 7.8 oz) 03/18/2010 8:00 A M CDT Height 169.1 cm (5' 6.58 ) 03/18/2010 8:00 AM CD T Body Mass Index 18.95 03/18/2010 8:00 AM CDT Body Mass Index Percentile 16.20% 03/18/2010 8:0 0 AM CDT Growth Chart: CDC (Boys, 2-2 0 Years) documented in this encounter Medications at Time of Discharge Medication Sig Dispensed Refills Start Date End Date tacrolimus (PROGRAF) 1 MG capsule Take 1 mg by mouth 2 times daily. 03/14/2012 documented as of this encounter Progress Notes * Philip Chavez MD - 03/18/2010 8:55 AM CDT Hematology/Oncology Progress/Admission Note 03/18/2010 Beka Nichols PCP: Philip Gomez MD Diagnosis: Multilineage autoimmune cytopenia Protocol/Regimen: n/a No Known Allergies. Current hospital medications Medication Dose Route Frequency Provider Last Rate Last Dose ??? immune globulin (human) (GAMMAGARD;GAMUNEX;PRIVIGEN) 10 % infusion 20 g 20 g Intravenous ONCE PHILIP CHAVEZ 20 g (03/18/10 8:39 AM) ??? diphenhydrAMINE (BENADRYL) tablet 50 mg 50 mg Oral ONCE PHILIP CHAVEZ 50 mg (03/18/10 8:39 AM) ??? acetaminophen (TYLENOL) tablet 500 mg 500 mg Oral ONCE PHILIP CHAVEZ 500 mg (03/18/10 8:39 AM) ??? dextrose 5% infusion Intravenous ONCE PHILIP CHAVEZ Current outpatient prescriptions Medication Sig Dispense Refill [...] no 13) Nutritional Status good Interval History Feels well. No fevers. Energy level fine. Appetite OK. Eager for school to be over. Beka specifically denies URI symptoms, congestion, MANUEL, malaise Past Medical History: unchanged Family Medical History: unchanged Physical Exam Constitutional: BP 100/60 Pulse 68 Temp 96.8 ??F Resp 16 Ht 1.691 m (5' 6.58 ) Wt 54.2 kg (119 lb 7.8 oz) SpO2 98% BSA (Calculated): 1.6 General Appearance: No acute distress Head: No [...] tenderness Abdomen: soft, non-tender, no masses or hepatosplenomegaly. Well healed abdominal scarring unchanged. Genitalia: deferred Extremities: no focal swelling or tenderness; full ROM Lab and/or Imaging Studies Recent Results (from the past 24 hours) CBC W MANUAL DIFFERENTIAL Collection Time 03/18/10 8:10 AM Component Value Range ??? WBC 4.30 (*) 4.5 - 11.0 (K/cumm) ??? RBC 5.82 (*) 4.50 - 5.30 (mill/cumm) ??? Hgb 18.5 (*) 13.0 - 16.0 (gm/dl) ??? Hct 52.2 (*) 37.0 - 49.0 (%) ??? MCV 89.7 78.0 - 98.0 (cu microns) ??? MCH 31.8 25.0 - 35.0 (uug) ??? MCHC 35.4 31.0 - 37.0 (%) ??? RDW 13.7 (%) ??? MPV 10.3 (fl) ??? Plt Ct K/CUMM 219 100 - 400 (K/cumm) ??? Manual Diff Comment Done ??? Band Manual 8 (%) ??? Seg Manual 58 31 - 78 (%) ??? Lymph Manual 10 (*) 13 - 54 (%) ??? [place] Manual 16 (*) 4 - 13 (%) ??? Eos Manual 4 0 - 8 (%) ??? Atyp Lymph Manual 4 (%) ??? RBC Morph Slight Anisocytosis, Slight Poikylocytosis COMPREHENSIVE METABOLIC PANEL Collection Time 03/18/10 8:10 AM Component Value Range ??? Sodium 141 137 - 145 (mmol/L) ??? Potassium 4.2 3.5 - 5.1 (mmol/L) ??? Chloride 103 98 - 107 (mmol/L) ??? CO2 29.9 22 - 30 (mmol/L) ??? Glucose 47 (*) 70 - 106 (mg/dl) ??? BUN 12.5 8 - 21 (mg/dl) ??? Calcium 9.2 8.9 - 10.7 (mg/dl) ??? Bili Total 0.5 (*) 0.6 - 1.4 (mg/dl) ??? Protein Total 7.1 6.3 - 8.6 (gm/dl) ??? Albumin 4.5 3.7 - 5.6 (gm/dl) ??? ALT/SGPT 15 10 - 40 (Units/L) ??? AST/SGOT 33 10 - 45 (Units/L) ??? Alk Phos 132 65 - 260 (Units/L) ??? Creatinine 0.79 0.50 - 1.06 (mg/dl) VICKEY DIRECT Collection Time 03/18/10 8:10 AM Component Value Range ??? ALEX IgG NEG ??? Direct Vickey Poly NEG IGG BLOOD Collection Time 03/18/10 8:10 AM Component Value Range ??? 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 Good response to Rituximab. Counts good. D. Coomb's negative. 2. 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 Liver transplant 4. 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 Good response to Rituximab in terms of platelet count. Needed on dose of Neulasta > 1mo ago while ill. 2. IVIG today 20 grams. Check IgG. Patient clinically much improved since IVIG has been given. 3. Follow up with GI service. Continue FK506. Check CMP 4. EBV quantitative PCR sent Follow-Up 4 weeks for IVIg documented in this encounter Miscellaneous Notes * Miscellaneous Scans - Document, Scanned - 03/18/2010 12:00 AM CDT documented in this encounter Plan of Treatment Not on file documented as of this encounter Procedures Procedure Name Priority Date/Time Associated Diagnosis Comments VICKEY DIRECT Timed 03/18/2010 8:10 AM CDT Neutropenia NEC Immune Thrombocyt Purpra JOSE-DE LA CRUZ VIRUS PCR QUANT BLOOD/CSF Routine 03/18/2010 8:10 AM CDT Neutropenia Associated with Autoimmune Disease (HCC) CBC W MANUAL DIFFERENTIAL Timed 03/18/2010 8:10 AM CDT Neutropenia Associated with Autoimmune Disease (HCC) COMPREHENSIVE METABOLIC PANEL Timed 03/18/2010 8:10 AM CDT Neutropenia Associated with Autoimmune Disease (HCC) Hypogammaglobuline m NOS IGG BLOOD Timed 03/18/2010 8:10 AM CDT Hypogammaglobuline justine (HCC) documented in this encounter Results * IGG BLOOD (03/18/2010 8:10 AM CDT) IgG 786 639 - 1349 mg/dl [facility] BLOOD SPECIMEN / Unknown 03/18/2010 8:10 AM CDT 03/18/2010 8:19 AM CDT Philip Chavez MD LAB - CHEMISTRY O RDERABLES [facility] * VICKEY DIRECT (03/18/2010 8:10 AM CDT) Direct Vickey (ALEX) IgG NEG [facility] Direct Vickey (ALEX) Poly NEG [facility] BLOOD SPECIMEN / Unknown 03/18/2010 8:10 AM CDT 03/18/2010 8:19 AM CDT Philip Chavez MD LAB - BLOOD BANK ORDERABLES [facility] * JOSE-BAR VIRUS PCR QUANTITATIVE BLOOD (03/18/2010 8:10 AM CDT) Jose-De La Cruz Virus DNA PCR Quantitative NO EBV DNA detected NO EBV DNA detected Copies/mL [facility] Comment EBV PCR CARD INAL [facility] Comment: This assay has a [...] ??EBV levels can vary by speimen type: [facility] uses whole blood which is more [...] determined by the [facility]. ??It has not been cleared [...] clinical laboratory testing. BLOOD SPECIMEN / Unknown 03/18/2010 8:10 AM CDT 03/18/2010 8:18 AM CDT Philip Chavez MD LAB - MICROBIOLOG Y ORDERABLES [facility] * (ABNORMAL) COMPREHENSIVE METABOLIC PANEL (03/18/2010 8:10 AM CDT) Sodium 141 137 - 145 mmol/L [facility] Potassium 4.2 3.5 - 5.1 mmol/L [facility] Chloride 103 98 - 107 mmol/L [facility] CO2 29.9 22 - 30 mmol/L [facility] Glucose 47(LL) 70 - 106 mg/dl [facility] BUN 12.5 8 - 21 mg/dl [facility] Calcium 9.2 8.9 - 10.7 mg/dl [facility] Bilirubin Total 0.5(L) 0.6 - 1.4 mg/dl [facility] Protein Total 7.1 6.3 - 8.6 gm/dl [facility] Albumin 4.5 3.7 - 5.6 gm/dl [facility] ALT 15 10 - 40 Units/L [facility] AST 33 10 - 45 Units/L [facility] Alkaline Phosphatase 132 65 - 260 Units/L [facility] Creatinine 0.79 0.50 - 1.06 mg/dl [facility] BLOOD SPECIMEN / Unknown 03/18/2010 8:10 AM CDT 03/18/2010 8:19 AM CDT Philip Chavez MD LAB - CHEMISTRY O RDERABLES [facility] * (ABNORMAL) CBC W MANUAL DIFFERENTIAL (03/18/2010 8:10 AM CDT) WBC 4.30(L) 4.5 - 11.0 K/cumm [facility] RBC 5.82(H) 4.50 - 5.30 mill/cumm [facility] Hemoglobin 18.5(H) 13.0 - 16.0 gm/dl [facility] Hematocrit 52.2(H) 37.0 - 49.0 % [facility] MCV 89.7 78.0 - 98.0 cu microns [facility] MCH 31.8 25.0 - 35.0 uug [facility] MCHC 35.4 31.0 - 37.0 % [facility] RDW 13.7 % [facility] MPV 10.3 fl [facility] Platelet Count 219 100 - 400 K/cumm [facility] Comment Manual Diff Done [facility] Band % Manual 8 % [facility] Neutrophils % Manual 58 31 - 78 % [facility] Lymphocytes % Manual 10(L) 13 - 54 % [facility] Monocytes % Manual 16(H) 4 - 13 % [facility] Eosinophils % Manual 4 0 - 8 % [facility] Atypical Lymphocyte % Manual 4 % [facility] RBC Morphology Slight Anisocytosis, Slight Poikylocytosis [facility] BLOOD SPECIMEN / Unknown 03/18/2010 8:10 AM CDT 03/18/2010 8:19 AM CDT Philip Chavez MD LAB - HEMATOLOGY ORDERABLES [facility] documented in this encounter Visit Diagnoses Diagnosis Hypogammaglobulinemia (HCC) Hypogammaglobulinaemia, unspecified Neutropenia associated with autoimmune disease (HCC) Other neutropenia Immune thrombocyt purpra Immune thrombocytopenic purpura documented in this encounter Administered Medications Inactive Administered Medications - up to 3 most recent administrations Medication Order MAR Action Action Date Dose Rate Site acetaminophen (TYLENOL) tablet 500 mg 500 mg, Oral, ONCE, 1 dose, On Wed03/18/10 at 0815, Maximum allowable Acetaminophen amount = 4 Grams / 24 hours. $ Given 03/18/2010 8:39 AM CDT 500 mg dextrose 5% infusion at 1-50 mL/hr, Intravenous, ONCE, 1 dose, On Wed03/18/10 at 0930, AMELIE $ Given 03/18/2010 10:30 AM CDT 163 mL/hr diphenhydrAMINE (BENADRYL) tablet 50 mg 50 mg, Oral, ONCE, 1 dose, On Wed03/18/10 at 0815 $ Given 03/18/2010 8:39 AM CDT 50 mg immune globulin (human) (GAMMAGARD;GAMUNEX;PRIVIGEN) 10 % infusion 20 g 20 g, Intravenous, ONCE, 1 dose, On Wed03/18/10 at 0900 $ Given 03/18/2010 8:39 AM CDT 20 g documented in this encounter Care Teams Coroner Forensic Technician Relationship Specialty Start Date End Date Philip Gomez MD [address] [place] [address] PCP - General 11/15/09 07/09/10 documented as of this encounter
--- OUTSIDE RECORDS SUMMARY | 2024-10-28 05:58 | XMS_ITS | Encounter Summary ---
Author Organization [facility] Address [address] [place] [address] Care Team Providers Care Rn Family Practice Name Role Phone Philip Gomez MD Primary Care Provider Reason for Visit * Reason Comments Infusion IVIG Infusion Encounter Details Date Type Department Care Team (Latest Contact Info) Description 02/18/2010 7:25 AM CDT - 02/18/2010 11:59 PM CDT Hospital Encounter [facility] at [address] [phone] Discharge Disposition: Home or Self Care Social [...] Sign Reading Time Taken Comments Blood Pressure 108/75 02/18/2010 12:44 PM CDT Pulse 68 02/18/2010 12:44 PM CDT Temperature 36.3 ??C (97.4 ??F) 02/18/2010 1 2:44 PM CDT Respiratory Rate 20 02/18/2010 12:4 4 PM CDT Oxygen Saturation 98% 02/18/2010 9:00 AM CDT Inhaled Oxygen Concentration - - Weight 54.6 kg (120 lb 5.9 oz) 02/18/2010 9:00 A M CDT Height 168.5 cm (5' 6.34 ) 02/18/2010 9:00 AM CD T Body Mass Index 19.23 02/18/2010 9:00 AM CDT Body Mass Index Percentile 20.40% 02/18/2010 9:0 0 AM CDT Growth Chart: CDC (Boys, 2-2 0 Years) documented in this encounter Discharge Instructions * Discharge Instructions* Document, Scanned - 12/12/2010 7:28 PM PREVENTION SPECIALIST * Document, Scanned - 02/18/2010 12:00 AM CDT documented in this encounter Medications at Time of Discharge Medication Sig Dispensed Refills Start Date End Date tacrolimus (PROGRAF) 1 MG capsule Take 1 mg by mouth 2 times daily. 03/14/2012 documented as of this encounter Progress Notes * Philip Chavez MD - 02/18/2010 11:13 AM CDT Hematology/Oncology Progress/Admission Note 02/18/2010 Beka Nichols PCP: Philip Gomez MD Diagnosis: Autoimmune Neutropenia/Thrombocytopenia Protocol/Regimen: N/A No Known Allergies. Current hospital medications Medication Dose Route Frequency Provider Last Rate Last Dose ??? immune globulin (human) (GAMMAGARD;GAMUNEX;PRIVIGEN) 10 % infusion 20 g 20 g Intravenous ONCE PHILIP CHAVEZ 20 g (02/18/10 10:14 AM) ??? acetaminophen (TYLENOL) tablet 650 mg 650 mg Oral ONCE PHILIP CHAVEZ 650 mg (02/18/10 10:00 AM) ??? diphenhydrAMINE (BENADRYL) tablet 50 mg 50 mg Oral ONCE PHILIP CHAVEZ 50 mg (02/18/10 10:00 AM) ??? dextrose 5% infusion Intravenous ONCE [...] no 13) Nutritional Status good Interval History Feeling much better compared to last visit at end of December. Occasional nasal congestion. Some currently for last 4 days. Energy level good. No rash. No ear pain. Appetite good. Weight stable. Physical Exam Constitutional: BP 110/90 Pulse 64 Temp 97.2 ??F Resp 28 Ht 1.685 m (5' 6.34 ) Wt 54.6 kg (120 lb 5.9 oz) SpO2 98% BSA (Calculated): 1.6 General Appearance: No acute distress Skin: no rashes, bruises, or petechiae Ears: [...] Sensation: grossly intact Gait/cerebellar: normal DTR: symmetric Recent Results (from the past 24 hours) CBC W MANUAL DIFFERENTIAL Collection Time 02/18/10 10:05 AM Component Value Range ??? WBC 6.20 4.5 - 11.0 (K/cumm) ??? RBC 4.74 4.50 - 5.30 (mill/cumm) ??? Hgb 14.8 13.0 - 16.0 (gm/dl) ??? Hct 40.9 37.0 - 49.0 (%) ??? MCV 86.3 78.0 - 98.0 (cu microns) ??? MCH 31.2 25.0 - 35.0 (uug) ??? MCHC 36.2 31.0 - 37.0 (%) ??? RDW 13.4 (%) ??? MPV 10.1 (fl) ??? Plt Ct K/CUMM 266 100 - 400 (K/cumm) ??? Manual Diff Comment Done ??? Band Manual 1 (%) ??? Seg Manual 73 31 - 78 (%) ??? Lymph Manual 14 13 - 54 (%) ??? [place] Manual 10 4 - 13 (%) ??? Variant Lymphs 2 (%) ??? RBC Morph Value: Slight Anisocytosis, Slight Poikylocytosis, Few Macrocytes, Few Microcytes, Few Schistocytes, Few Ovalocytes Procedures none Assessment 1. Autoimmune Neutropenia status post neulasta 01/22/10. ANC great. 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 Platelet count stable and normal 3. EBV reactivation- EBV PCR negative since Rituximab in 10/2009 4. Liver Transplant- Stable liver function. 5. Hypogammaglobulinemia- Secondary to Rituximab Plan 1. IVIG 400 mg/kg. Premed with Tylenol and Benadryl 2. Counts checked and appear unremarkable 3. Plan EBV PCR with next visit. Follow-Up 1 month for IVIG documented in this encounter Miscellaneous Notes * Miscellaneous Scans - Document, Scanned - 02/18/2010 12:00 AM CDT documented in this encounter Plan of Treatment Not on file documented as of this encounter Procedures Procedure Name Priority Date/Time Associated Diagnosis Comments CBC W MANUAL DIFFERENTIAL Routine 02/18/2010 10:05 AM CDT Hypogammaglobulinem ia (HCC) Neutropenia Associated with Autoimmune Disease (HCC) documented in this encounter Results * CBC W MANUAL DIFFERENTIAL (02/18/2010 10:05 AM CDT) WBC 6.20 4.5 - 11.0 K/cumm [facility] RBC 4.74 4.50 - 5.30 mill/cumm [facility] Hemoglobin 14.8 13.0 - 16.0 gm/dl [facility] Hematocrit 40.9 37.0 - 49.0 % [facility] MCV 86.3 78.0 - 98.0 cu microns [facility] MCH 31.2 25.0 - 35.0 uug [facility] MCHC 36.2 31.0 - 37.0 % [facility] RDW 13.4 % [facility] MPV 10.1 fl [facility] Platelet Count 266 100 - 400 K/cumm [facility] Comment Manual Diff Done [facility] Band % Manual 1 % [facility] Neutrophils % Manual 73 31 - 78 % [facility] Lymphocytes % Manual 14 13 - 54 % [facility] Monocytes % Manual 10 4 - 13 % [facility] Atypical Lymphocyte % Manual 2 % [facility] RBC Morphology Slight Anisocytosis, Slight Poikylocytosis , Few Macrocytes, Few Microcytes, Few Schistocytes, Few Ovalocytes [facility] BLOOD SPECIMEN / Unknown 02/18/2010 10:05 AM CDT 02/18/2010 10:17 AM CDT Philip Chavez MD LAB - HEMATOLOGY ORDERABLES [facility] documented in this encounter Visit Diagnoses Diagnosis Hypogammaglobulinemia (HCC) Hypogammaglobulinaemia, unspecified Neutropenia associated with autoimmune disease (HCC) Other neutropenia documented in this encounter Administered Medications Inactive Administered Medications - up to 3 most recent administrations Medication Order MAR Action Action Date Dose Rate Site acetaminophen (TYLENOL) tablet 650 mg 650 mg, Oral, ONCE, 1 dose, On Wed02/18/10 at 0800, Maximum allowable Acetaminophen amount = 4 Grams / 24 hours. $ Given 02/18/2010 10:00 AM CDT 650 mg dextrose 5% infusion at 50 mL/hr, Intravenous, ONCE, 1 dose, On Wed02/18/10 at 0900 $ Given 02/18/2010 12:31 PM CDT 50 mL/hr diphenhydrAMINE (BENADRYL) tablet 50 mg 50 mg, Oral, ONCE, 1 dose, On Wed02/18/10 at 0800 $ Given 02/18/2010 10:00 AM CDT 50 mg immune globulin (human) (GAMMAGARD;GAMUNEX;PRIVIGEN) 10 % infusion 20 g 20 g, Intravenous, ONCE, 1 dose, On Wed02/18/10 at 0800 $ Given 02/18/2010 10:14 AM CDT 20 g documented in this encounter Care Teams Rn Family Practice Relationship Specialty Start Date End Date Philip Gomez MD [address] [place] [address] PCP - General 11/15/09 07/09/10 documented as of this encounter
--- OUTSIDE RECORDS SUMMARY | 2024-10-28 05:58 | XMS_ITS | Encounter Summary ---
Author Organization [facility] Address [address] [place] [address] Care Team Providers Care Server Cashier Name Role Phone Vilma Spangler MD Primary Care Provider [phone] Reason for Visit * Reason Onset Date Comments Shoulder Pain 08/05/2010 Encounter Details Date Type Department Care Team (Late st Contact Info) Description 08/05/2010 Telephone [facility] at [address] [phone] Naila Knight RN Shoulder Pain Social History Tobacco Use Types Packs/Day Years Used Date Smoking Tobacco: Never Alcohol Use Standard Drinks/Week Comments No 0 (1 standard drink = 0.6 oz pur e alcohol) Sex and Gender Information Value Date Recorded Sex Assigned at Not on file Gender Identity Not on file Sexual Orientation Not on file documented as of this encounter Miscellaneous Notes * Telephone Encounter - Naila Knight RN - 08/05/2010 8:26 AM CDT Mom called to let us know that patient's cardroom supervisor(dr Bauer) sent him to orthopedic md ([facility] in [place], [place]) for evaluation of shoulder pain and MRI that is scheduled for this. Mom will call once she gets results of MRI and md recommendation before anything else is done. Pt is scheduled to see us on 08-11-10 for IVIG and visit. Mom will call with any issues or concerns. documented in this encounter Plan of Treatment Not on file documented as of this encounter Visit Diagnoses Not on filedocumented in this encounter Care Teams Server Cashier Relationship Specialty Start Date End Date Vilma Spangler MD [address] [place] [address] PCP - General 07/10/10 08/10/10 documented as of this encounter
--- OUTSIDE RECORDS SUMMARY | 2024-10-28 05:59 | XMS_ITS | Encounter Summary ---
Author Organization [facility] Address [facility]6 [facility] [place] [address] [place] [address] Care Team Providers Care Court Orderly Name Role Phone Guero Colunga DO Primary Care Provider [phone] Encounter Details Date Type Department Care Team (Latest Contact Info) Description 01/29/2023 7:08 AM CDT Hospital Encounter [facility] [address] [place] [address] Alex Lemus MD [address] [place] [phone] Discharge Disposition: Home or Self Care (Routine Discharge) Social History Tobacco Use Types Packs/Day Years Used Date Smoking Tobacco: Former Smokeless Tobacco: Current Alcohol Use Standard Drinks/Week Comments Yes 0 (1 standard drink = 0.6 oz pur e alcohol) socially Sex and Gender Information Value Date Recorded Sex Assigned at Not on file Legal Sex Male 8:42 PM CDT Gender Identity Not on file Sexual Orientation Not on file COVID-19 Exposure Response Date Recorded In the last 10 days, have yo u been in contact with someone who was confirmed or suspected to have Coronavirus/COVID-19? No / Unsure 01/29/2023 7:03 AM CDT documented as of this encounter Medications at Time of Discharge tacrolimus 0.5 MG capsule Take 0.5 mg by mouth 2 (two) times daily. ursodiol 300 MG capsule Take 600 mg by mouth daily. 10/02/2021 documented as of this encounter Plan of Treatment Not on file documented as of this encounter Procedures Procedure Name Priority Date/Time Associated Diagnosis Comments COMPREHENSIVE METABOLIC PANEL Routine 01/29/2023 7:16 AM CDT Liver replaced by transplant (CMS/HCC HHS/HCC) CBC, AUTO, NO DIFF Routine 01/29/2023 7: 16 AM CDT Liver replaced by transplant (CMS/HCC HHS/HCC) GGT, GAMMA GLUTAMYLTRANSFERASE Routine 01/29/2023 7:16 AM CDT Liver replaced by transplant (CMS/HCC HHS/HCC) TACROLIMUS Routine 01/29/2023 7:16 AM CDT Liver replaced by transplant (CMS/HCC HHS/HCC) documented in this encounter Results * TACROLIMUS (01/29/2023 7:16 AM CDT) TACROLIMUS 3.6 mcg/L 02/01/2023 1:14 PM CDT [facility] JASON JACKSON Comment: No definitive therapeutic or toxic ranges have been established. Optimal blood drug levels are influenced by type of transplant, patient response, time post- transplant, co-administration of other drugs, and drug formulation. The following trough range is a suggested guideline: ? 5.0-20.0 mcg/L This test was developed and its analytical performance characteristics have been determined by [facility], [place]. It has not been cleared or approved by the U.S. Food and Drug Administration. This assay has been validated pursuant to the CLIA regulations and is used for clinical purposes. Test Performed by [facility], [facility] [place], [address] [place], [place] Severino Chavez M.D., Ph.D., Director of Laboratories , CLIA [id number] 01/29/2023 7:16 AM CDT Alex Lemus MD LABORATORY Final Resul t [facility] [employer] [facility] [address] [place] [address], [place] [phone] * GGT, GAMMA GLUTAMYLTRANSFERASE (01/29/2023 7:16 AM CDT) GGT 85 15.0 - 85.0 U/L 01/29/2023 10:40 AM CDT [facility] 01/29/2023 7:16 AM CDT Alex Lemus MD LABORATORY Final Resul t Performing Organization Address City/[facility]/ZIP Co de Phone Number [facility] [address] [place] [address], [place] [phone] * (ABNORMAL) COMPREHENSIVE METABOLIC PANEL (01/29/2023 7:16 AM CDT) GLUCOSE 90 70 - 99 MG/DL 01/29/2023 7:53 AM CDT [facility] BUN 10 7 - 18 MG/DL 01/29/2023 7:53 AM CDT [facility] CREATININE S/P/B 0.74 0.7 - 1.3 MG/DL 01/29/2023 7:53 AM CDT [facility] SODIUM S/P/B 138 136 - 145 MMOL/L 01/29/2023 7:53 AM CDT [facility] POTASSIUM S/P/B 4.1 3.5 - 5.1 MMOL/L 01/29/2023 7:53 AM CDT [facility] CHLORIDE S/P/B 106 100 - 108 MMOL/L 01/29/2023 7:53 AM CDT [facility] CO2 24.5 21 - 32 MMOL/L 01/29/2023 7:53 AM [facility] CALCIUM S/P/B 8.3(L) 8.5 - 10.1 MG/DL 01/29/2023 7:53 AM [facility] BILIRUBIN TOTAL S/P/B 1.6(H) 0.2 - 1.2 MG/DL 01/29/2023 7:53 AM [facility] TOTAL PROTEIN S/P/B 6.2(L) 6.4 - 8.2 G/DL 01/29/2023 7:53 AM [facility] ALBUMIN S/P/B 2.7(L) 3.4 - 5.0 G/DL 01/29/2023 7:53 AM [facility] AST 60(H) 15 - 37 U/L 01/29/2023 7:53 AM [facility] ALT 46 16 - 60 U/L 01/29/2023 7:53 AM [facility] ALKALINE PHOSPHATASE S/P/B 316(H) 50 - 136 U/L 01/29/2023 7:53 AM [facility] ANION GAP 7.5 5 - 15 MMOL/L 01/29/2023 7:53 AM [facility] BUN CREATININE RATIO 13.5 6 - 26 01/29/2023 7:53 AM [facility] A/G RATIO 0.8(L) 1.0 - 2.0 RATIO 01/29/2023 7:53 AM [facility] GFR ESTIMATE >90 >90 ML/MIN/1.7 3 M2 01/29/2023 7:53 AM [facility] Comment: NOTE: eGFR is not calculated for patients <18 years of age. This is an estimated GFR calculation using the new CKD EPI creatinine equation without race and so does not require a correction factor for race. This estimated GFR should not be used for calculating drug doses. 01/29/2023 7:16 AM CDT Alex Lemus MD LABORATORY Final Resul t [facility] [address] [place] [phone], * (ABNORMAL) CBC, AUTO, NO DIFF (01/29/2023 7:16 AM CDT) WBC 8.84 4.4 - 11.0 x10'3/uL 01/29/2023 7:33 AM CDT [facility] RBC 3.98(L) 4.50 - 5.90 x10'6/uL 01/29/2023 7:33 AM CDT [facility] HGB 14.1 14.0 - 17.5 G/DL 01/29/2023 7:33 AM CDT [facility] HCT 38.3(L) 41.5 - 50.4 % 01/29/2023 7:33 AM CDT [facility] MCV 96.2(H) 80.0 - 96.0 FL 01/29/2023 7:33 AM CDT [facility] MCH 35.4(H) 26.5 - 31.4 PG 01/29/2023 7:33 AM CDT [facility] MCHC 36.8(H) 31.9 - 34.8 G/DL 01/29/2023 7:33 AM CDT [facility] RDW 16.3(H) 12.3 - 14.3 % 01/29/2023 7:33 AM CDT [facility] PLT 160 151 - 353 x10'3/uL 01/29/2023 7:33 AM CDT [facility] MPV 10.6 9.7 - 11.9 FL 01/29/2023 7:33 AM CDT [facility] 01/29/2023 7:16 AM CDT us Alex Lemus MD LABORATORY Final Resul t [facility] [address] [place] [address], documented in this encounter Visit Diagnoses Diagnosis Liver replaced by transplant (CMS/HCC HHS/HCC) Liver replaced by transplant documented in this encounter Care Teams Court Orderly Relationship Specialty Start Date End Date Guero Colunga DO [address] [address] PCP - General INTERNAL MEDICINE 06/16/21 documented as of this encounter
--- OUTSIDE RECORDS SUMMARY | 2024-10-28 05:59 | XMS_ITS | Encounter Summary ---
Author Organization [facility] Address [facility]. [place], [place] [address] [place] [address] Care Team Providers Care Terrazzo Worker Helper Name Role Phone Guero Colunga DO Primary Care Provider [phone] Encounter Details Date Type Department Care Team (Latest Contact Info) Description 11/14/2022 Travel Social History Tobacco Use Types Packs/Day Years [...] suspected to have Coronavirus/COVID-19? No / Unsure 11/14/2022 8:36 AM MANAGER ELIGIBILITY documented as of this encounter Plan of Treatment Not on file documented as of this encounter Visit Diagnoses Not on filedocumented in this encounter Care Teams Terrazzo Worker Helper Relationship Specialty Start Date End Date Guero Colunga DO 2089 [facility] [address] [place] [address] PCP - General INTERNAL MEDICINE 06/16/21 documented as of this encounter
--- OUTSIDE RECORDS SUMMARY | 2024-10-28 05:59 | XMS_ITS | Encounter Summary ---
Author Organization [facility] Address [facility] [place] [address] [place] [address] Care Team Providers Care Quality Assurance Intern Name Role Phone Guero Colunga DO Primary Care Provider [phone] Encounter Details Date Type Department Care Team (Late st Contact Info) Description 11/14/2022 8:39 AM CREW DISPATCHER - 11/14/2022 11:59 PM CREW DISPATCHER Hospital Encounter [facility] [address] [place] [address] Madelaine Martínez, AIDEN [address] [facility] [address] [place], [place] [id number] Discharge Disposition: Home or Self Care (Routine [...] Coronavirus/COVID-19? No / Unsure 11/14/2022 8:36 AM CREW DISPATCHER documented as of this encounter Medications at Time of Discharge tacrolimus 0.5 MG capsule Take 0.5 mg by mouth 2 (two) times daily. ursodiol 300 MG capsule Take 600 mg by mouth daily. 10/02/2021 documented as of this encounter Plan of Treatment Not on file documented as of this encounter Procedures Procedure Name Priority Date/Time Associated Diagnosis Comments CMV DNA QUANT REAL TIME PCR Routine 11/14/2022 9:30 AM CREW DISPATCHER Cytomegaloviral disease (CMS/HCC HHS/HCC) documented in this encounter Results * (ABNORMAL) CMV DNA QUANT REAL TIME PCR (11/14/2022 9:30 AM CREW DISPATCHER) SPECIMEN SOURCE BLOOD 10:02 AM CREW DISPATCHER [facility] CMV DNA QN PCR (BLD) 8,267(HH) IU/mL 11/17/2022 9:11 PM CREW DISPATCHER [facility] CMV DNA QUANT PCR (BLD) 3.92(H) log IU/mL 11/17/2022 9:11 PM CREW DISPATCHER [facility] Comment: REFERENCE RANGE: NOT DETECTED This test was developed and its analytical performance characteristics have been determined by [facility] [place], [place]. It has not been cleared or approved by the U.S. Food and Drug Administration. This assay has been validated pursuant to the CLIA regulations and is used for clinical purposes. For additional information, please refer to http://education.PWRF/faq/CMVandEBVPCR (This link is being provided for informational/ educational purposes only.) Test Performed by [facility] [place], [facility] [place], [address] [place], [place] Severino Chavez M.D., Ph.D., Director of Laboratories , CLIA [id number] 11/14/2022 9:30 AM CREW DISPATCHER us Jil Duncan MD LABORATORY Final Result [facility] [address] [place], [place] , [place] [phone] [facility] [address] [place] [address], [place] [phone] documented in this encounter Visit Diagnoses Diagnosis 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
--- OUTSIDE RECORDS SUMMARY | 2024-10-28 05:59 | XMS_ITS | Encounter Summary ---
Author Organization [facility] Address [facility] [place] [address] [place] [address] Care Team Providers Care Technical Recruiter Name Role Phone Guero Colunga DO Primary Care Provider [phone] Encounter Details Date Type Department Care Team (Late st Contact Info) Description 01/29/2023 Orders Only [facility] [address] [place] [address] Alex Lemus MD [facility] [place] [address] Social History Tobacco Use Types Packs/Day Years [...] AM CDT documented as of this encounter Plan of Treatment Not on file documented as of this encounter Visit Diagnoses Diagnosis Liver replaced by transplant (CMS/HCC HHS/HCC)- Primary Liver replaced by transplant documented in this encounter Care Teams Technical Recruiter Relationship Specialty Start Date End Date Guero Colunga DO [address] [address] PCP - General INTERNAL MEDICINE 06/16/21 documented as of this encounter
--- OUTSIDE RECORDS SUMMARY | 2024-10-28 05:59 | XMS_ITS | Encounter Summary ---
Author Organization [facility] Address [facility] [facility] [place] [address] [place] [address] Care Team Providers Care Stevedore Dock Name Role Phone Guero Colunga DO Primary Care Provider [phone] Encounter Details Date Type Department Care Team (Late st Contact Info) Description 01/29/2023 Orders Only [facility] [address] [place] [address] Lisandra Bland, AIDEN [address] [place] [phone] Social History Tobacco Use Types Packs/Day Years [...] on file documented as of this encounter Results * (ABNORMAL) CMV DNA QUANT REAL TIME PCR (01/29/2023 7:17 AM CDT) SPECIMEN SOURCE WHOLE BLOOD 01/29/2023 4:17 PM CDT [facility] CMV DNA QN PCR (BLD) 16,072(HH ) IU/mL 02/01/2023 8:07 PM CDT [facility] JASON JACKSON CMV DNA QUANT PCR (BLD) 4.21(H) log IU/mL 02/01/2023 8:07 PM CDT [facility] JASON JACKSON Comment: REFERENCE RANGE: NOT DETECTED This test was developed and its analytical performance characteristics have been determined by [facility], [place]. It has not been cleared or approved by the U.S. Food and Drug Administration. This assay has been validated pursuant to the CLIA regulations and is used for clinical purposes. For additional information, please refer to http://education.OuiCar.Likelii/faq/CMVandEBVPCR (This link is being provided for informational/ educational purposes only.) Test Performed by [facility], [facility], [address] [place] [address] Severino Chavez M.D., Ph.D., Director of Laboratories , CLIA [id number] 01/29/2023 7:17 AM CDT us Lisandra Bland [facility] LABORATORY Final Resu lt [facility] [employer] [address] , [place] [phone] [facility] [address] [place] [address], [place] [phone] documented in this encounter Visit Diagnoses Diagnosis 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
--- OUTSIDE RECORDS SUMMARY | 2024-10-28 05:59 | XMS_ITS | Clinical Summary ---
Author Organization [facility] Address [facility] [place] [address] [place] [address] Care Team Providers Care Insurance Sales Supervisor Name Role Phone Guero Colunga DO Primary Care Provider [phone] Allergies No known active allergies Medications tacrolimus 0.5 MG capsule Take 0.5 mg by mouth 2 (two) times daily. Active ursodiol 300 MG capsule Take 600 mg by mouth daily. 10/02/2021 Active Immunizations Name Administration Dates Next Due Tdap (Adacel) 06/16/2021 Social History Tobacco Use Types Packs/Day Years [...] Sign Reading Time Taken Comments Blood Pressure 121/68 04/11/2022 7:20 AM CDT Pulse 74 04/11/2022 7:20 AM CDT Temperature 37 ??C (98.6 ??F) 04/11/2022 7:20 AM CDT Respiratory Rate 16 04/11/2022 7:20 AM CDT Oxygen Saturation 97% 04/11/2022 7:20 AM CDT Inhaled Oxygen Concentration - - Weight 63.5 kg (140 lb) 04/11/2022 7:20 AM CDT Height 172.7 cm (5' 8 ) 04/11/2022 7:20 AM CDT Body Mass Index 21.29 04/11/2022 7:20 AM CDT Plan of Treatment Health Maintenance Due Date Last Done Comments Annual Physical 02/01/1996 Meningococcal B Vaccine (1 o f 4 - Increased Risk) 2003 Hepatitis C 2011 Hepatitis B Vaccines (1 of 3 - 19+ 3-dose series) 02/01/2012 Meningococcal Vaccine (2 - Risk 2-dose series) 01/06/2013 11/11/2012, 11/11/2012 Pneumococcal Vaccine: Pediatrics (0 to 5 Years) and At-Risk Patients (6 to 64 Years) (2 of 2 - PCV) 08/10/2014 08/10/2013, 11/11/2012 COVID-19 Vaccine (3 - 2023-2 5 season) 2024 05/13/2022, 02/08/2021 Influenza Adult (#1) 2024 09/28/2018 DTaP, Tdap and Td Vaccines ( 2 - Td or Tdap) 06/16/2031 06/16/2021 HPV Vaccines Aged Out No longer eligi ble based on patient's age to complete this topic RSV Immunizations Under 20 Months Aged Out No longer eligible b ased on patient's age to complete this topic Insurance [facility] Care Teams Insurance Sales Supervisor Relationship Specialty Start Date End Date Guero Colunga DO [address] [facility] [address] [address] PCP - General INTERNAL MEDICINE 06/16/21
--- OUTSIDE RECORDS SUMMARY | 2024-10-28 05:59 | XMS_ITS | Encounter Summary ---
Author Organization [facility] Address [facility] [place] [facility]6 [facility] [address] [place] [address] Care Team Providers Care Coil Assembler Name Role Phone Guero Colunga DO Primary Care Provider [phone] Encounter Details Date Type Department Care Team (Latest Contact Info) Description 01/29/2023 7:09 AM CDT - 01/29/2023 11:59 PM CDT Hospital Encounter [facility] [address] [place] [address] Lisandra Bland, AIDEN [address] [place] [address] Discharge Disposition: Home or Self Care (Routine [...] CMV DNA QUANT REAL TIME PCR Routine 01/29/2023 7:17 AM CDT Cytomegaloviral disease (CMS/HCC HHS/HCC) documented in this encounter Results * (ABNORMAL) CMV DNA QUANT REAL TIME PCR (01/29/2023 7:17 AM CDT) SPECIMEN SOURCE WHOLE BLOOD 01/29/2023 4:17 PM CDT [facility] CMV DNA QN PCR (BLD) 16,072( ) IU/mL 02/01/2023 8:07 PM CDT [facility] CMV DNA QUANT PCR (BLD) 4.21(H) log IU/mL 02/01/2023 8:07 PM CDT [facility] Comment: REFERENCE RANGE: NOT DETECTED This test was developed and its analytical performance characteristics have been determined by [facility] [place], [place]. It has not been cleared or approved by the U.S. Food and Drug Administration. This assay has been validated pursuant to the CLIA regulations and is used for clinical purposes. For additional information, please refer to http://education.Qwiki/faq/CMVandEBVPCR (This link is being provided for informational/ educational purposes only.) Test Performed by [facility], [facility] [place], [address] [place], [place] Severino Chavez M.D., Ph.D., Director of Laboratories , CLIA [id number] 01/29/2023 7:17 AM CDT us Lisandra Bland NP LABORATORY Final Resu lt [facility] [address] [place], [place] , [facility] [address] [place] [address], documented in this encounter Visit Diagnoses Diagnosis Cytomegaloviral disease ([facility]/HCC [facility]/HCC) Cytomegaloviral disease documented in this encounter Care Teams Coil Assembler Relationship Specialty Start Date End Date Guero Colunga DO [address] [address] PCP - General INTERNAL MEDICINE 06/16/21 documented as of this encounter
--- OUTSIDE RECORDS SUMMARY | 2024-10-28 05:59 | XMS_ITS | Encounter Summary ---
Author Organization [facility] Address [facility]6 [facility]. [place], [place] [address] [place] [address] Care Team Providers Care Log Buyer Name Role Phone Guero Colunga DO Primary Care Provider [phone] Encounter Details Date Type Department Care Team (Latest Contact Info) Description 01/29/2023 Travel Social History Tobacco Use Types Packs/Day [...] on filedocumented in this encounter Care Teams Log Buyer Relationship Specialty Start Date End Date Guero Colunga DO 2089 [facility] [address] [place] [address] PCP - General INTERNAL MEDICINE 06/16/21 documented as of this encounter
--- OUTSIDE RECORDS SUMMARY | 2024-10-28 06:00 | XMS_ITS | Encounter Summary ---
Author Organization [facility] Address [facility]6 [facility]. [place], [place] [address] [place] [address] Care Team Providers Care Beater And Pulper Feeder Name Role Phone Guero Colunga DO Primary Care Provider [phone] Encounter Details Date Type Department Care Team (Latest Contact Info) Description 04/17/2022 Travel Social History Tobacco Use Types Packs/Day [...] suspected to have Coronavirus/COVID-19? No / Unsure 04/17/2022 7:35 AM CDT documented as of this encounter Plan of Treatment Not on file documented as of this encounter Visit Diagnoses Not on filedocumented in this encounter Care Teams Beater And Pulper Feeder Relationship Specialty Start Date End Date Guero Colunga DO 2089 [facility] [address] [place] [address] PCP - General INTERNAL MEDICINE 06/16/21 documented as of this encounter
--- OUTSIDE RECORDS SUMMARY | 2024-10-28 06:00 | XMS_ITS | Encounter Summary ---
Author Organization [facility] Address [address] [place] [address]. [place] [address] [place] [address] Care Team Providers Care Personal Financial Advisor Name Role Phone Guero Colunga DO Primary Care Provider [phone] Encounter Details Date Type Department Care Team (Late st Contact Info) Description 07/18/2022 8:49 AM CDT - 07/18/2022 11:59 PM CDT Hospital Encounter [facility] [address] [place] [address] Jil Duncan MD [address] [facility] [place] [address] Discharge Disposition: Home or Self Care (Routine [...] suspected to have Coronavirus/COVID-19? No / Unsure 07/18/2022 8:47 AM CDT documented as of this encounter [...] CMV DNA QUANT REAL TIME PCR Routine 07/18/2022 12:54 PM CDT Cytomegaloviral disease (CMS/HCC HHS/HCC) documented in this encounter Results * (ABNORMAL) CMV DNA QUANT REAL TIME PCR (07/18/2022 12:54 PM CDT) SPECIMEN SOURCE WHOLE BLOOD 08/03/2022 10:51 AM CDT [facility] CMV DNA QN PCR (BLD) 9,443() IU/mL 07/21/2022 8:47 AM CDT [facility] CMV DNA QUANT PCR (BLD) 3.98(H) log IU/mL 07/21/2022 8:47 AM CDT [facility] Comment: REFERENCE RANGE: NOT DETECTED This test was developed and its analytical performance characteristics have been determined by [employer] [place], [place]. It has not been cleared or approved by the U.S. Food and Drug Administration. This assay has been validated pursuant to the CLIA regulations and is used for clinical purposes. For additional information, please refer to http://education.[employer]/faq/CMVandEBVPCR (This link is being provided for informational/ educational purposes only.) Test Performed by [facility], [facility] [place], [address] [place], [place] Severino Chavez M.D., Ph.D., Director of Laboratories , CLIA [id number] 07/18/2022 12:5 4 PM CDT us Jil Duncan MD LABORATORY Final Result [facility] [address] [place], [place] , [facility] [address] [place] [address], documented in this encounter Visit Diagnoses Diagnosis 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
--- OUTSIDE RECORDS SUMMARY | 2024-10-28 06:00 | XMS_ITS | Encounter Summary ---
Author Organization [facility] Address [facility]6 [facility]. [place], [place] [address] [place] [address] Care Team Providers Care Park Guide Name Role Phone Guero Colunga DO Primary Care Provider [phone] Encounter Details Date Type Department Care Team (Latest Contact Info) Description 06/20/2022 Travel Social History Tobacco Use Types Packs/Day [...] suspected to have Coronavirus/COVID-19? No / Unsure 06/20/2022 9:06 AM CDT documented as of this encounter Plan of Treatment Not on file documented as of this encounter Visit Diagnoses Not on filedocumented in this encounter Care Teams Park Guide Relationship Specialty Start Date End Date Guero Colunga DO [address] [facility] 204 [place] [address] PCP - General INTERNAL MEDICINE 06/16/21 documented as of this encounter
--- OUTSIDE RECORDS SUMMARY | 2024-10-28 06:00 | XMS_ITS | Encounter Summary ---
Author Organization [facility] Address [facility] [place], [place] [address] [place] [address] Care Team Providers Care Cap Machine Operator Name Role Phone Guero Colunga DO Primary Care Provider [phone] Encounter Details Date Type Department Care Team (Latest Contact Info) Description 07/18/2022 Travel Social History Tobacco Use Types Packs/Day [...] on filedocumented in this encounter Care Teams Cap Machine Operator Relationship Specialty Start Date End Date Guero Colunga DO 2089 [facility] 204 [place] [address] PCP - General INTERNAL MEDICINE 06/16/21 documented as of this encounter
--- OUTSIDE RECORDS SUMMARY | 2024-10-28 06:00 | XMS_ITS | Encounter Summary ---
Author Organization [facility] Address [address] [place] [address]. [place] [address] [place] [address] Care Team Providers Care Silicator Name Role Phone Guero Colunga DO Primary Care Provider Encounter Details Date Type Department Care Team (Late st Contact Info) Description 06/27/2022 8:22 AM CDT - 06/27/2022 11:59 PM CDT Hospital Encounter [facility] [address] [place] [address] Jil Duncan MD [address] [facility] [place] [address] Discharge Disposition: Home or Self Care (Routine [...] suspected to have Coronavirus/COVID-19? No / Unsure 06/27/2022 8:21 AM CDT documented as of this encounter [...] CMV DNA QUANT REAL TIME PCR Routine 06/27/2022 8:32 AM CDT Cytomegalovirus infection (CMS/HCC HHS/HCC) documented in this encounter Results * (ABNORMAL) CMV DNA QUANT REAL TIME PCR (06/27/2022 8:32 AM CDT) SPECIMEN SOURCE BLOOD 2:42 PM CDT [facility] CMV DNA QN PCR (BLD) 43,564(HH ) IU/mL 06/30/2022 9:37 AM CDT [facility] CMV DNA QUANT PCR (BLD) 4.64(H) log IU/mL 06/30/2022 9:37 AM CDT [facility] Comment: REFERENCE RANGE: NOT DETECTED This test was developed and its analytical performance characteristics have been determined by [facility] [place], [place]. It has not been cleared or approved by the U.S. Food and Drug Administration. This assay has been validated pursuant to the CLIA regulations and is used for clinical purposes. For additional information, please refer to http://education.[employer]/faq/CMVandEBVPCR (This link is being provided for informational/ educational purposes only.) Test Performed by [facility], [facility] [place], [address] [place], [place] Severino Chavez M.D., Ph.D., Director of Laboratories , CLIA [id number] 06/27/2022 8:32 AM CDT us Jil Duncan MD LABORATORY Final Result [facility] [address] [place], [place] , [facility] [address] [place], [place] [id number], documented in this encounter Visit Diagnoses Diagnosis Cytomegalovirus infection ([facility]/HCC [facility]) Cytomegaloviral disease documented in this encounter Care Teams Silicator Relationship Specialty Start Date End Date Guero Colunga DO [address] [id number] PCP - General INTERNAL MEDICINE 06/16/21 documented as of this encounter
--- OUTSIDE RECORDS SUMMARY | 2024-10-28 06:00 | XMS_ITS | Encounter Summary ---
Author Organization [facility] Address [facility]6 [place] [address] [place] [address] Care Team Providers Care Plant Maintenance Technician Name Role Phone Guero Colunga DO Primary Care Provider [phone] Encounter Details Date Type Department Care Team (Late st Contact Info) Description 07/25/2022 8:05 AM CDT - 07/25/2022 8:06 AM CDT Hospital Encounter [facility] [address] [place] [address] Madelaine Martínez, AIDEN 4590 [facility] [address] [place] [address] Discharge Disposition: Home or Self Care (Routine [...] suspected to have Coronavirus/COVID-19? No / Unsure 07/25/2022 8:05 AM CDT documented as of this encounter [...] Associated Diagnosis Comments COMPREHENSIVE METABOLIC PANEL Routine 07/25/2022 8:36 AM CDT Liver replaced by transplant (CMS/HCC HHS/HCC) CBC, AUTO, NO DIFF Routine 07/25/2022 8: 36 AM CDT Liver replaced by transplant (CMS/HCC HHS/HCC) GGT, GAMMA GLUTAMYLTRANSFERASE Routine 07/25/2022 8:36 AM CDT Liver replaced by transplant (CMS/HCC HHS/HCC) TACROLIMUS Routine 07/25/2022 8:36 AM CDT Liver replaced by transplant (CMS/HCC HHS/HCC) documented in this encounter Results * TACROLIMUS (07/25/2022 8:36 AM CDT) TACROLIMUS 3.6 mcg/L 07/28/2022 6:16 AM CDT [employer] JASON JACKSON Comment: No definitive therapeutic or toxic ranges have been established. Optimal blood drug levels are influenced by type of transplant, patient response, time post- transplant, co-administration of other drugs, and drug formulation. The following trough range is a suggested guideline: ? 5.0-20.0 mcg/L This test was developed and its analytical performance characteristics have been determined by [facility] [place], [place]. It has not been cleared or approved by the U.S. Food and Drug Administration. This assay has been validated pursuant to the CLIA regulations and is used for clinical purposes. Test Performed by Leti Vazquez, [facility] [place], [address] [place] [address] Severino Chavez M.D., Ph.D., Director of Laboratories , CLIA [id number] 07/25/2022 8:36 AM CDT Madelaine Martínez BLEACHING 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 LABORATORY Final Re sult [employer] SARAH L[place]OSLETI [address] [place] [address], [place] [phone] * (ABNORMAL) GGT, GAMMA GLUTAMYLTRANSFERASE (07/25/2022 8:36 AM CDT) GGT 122(H) 15.0 - 85.0 U/L 07/25/2022 2:17 PM CDT [facility] 07/25/2022 8:36 AM CDT Madelaine Martínez BLEACHING 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 LABORATORY Final Re sult Performing Organization Address City/[facility]/ZIP Co de Phone Number [facility] 3 [place] [address], [place] [phone] * (ABNORMAL) COMPREHENSIVE METABOLIC PANEL (07/25/2022 8:36 AM CDT) GLUCOSE 92 70 - 99 MG/DL 07/25/2022 9:25 AM CDT [facility] BUN 9 7 - 18 MG/DL 07/25/2022 9:25 AM CDT [facility] CREATININE S/P/B 0.83 0.7 - 1.3 MG/DL 07/25/2022 9:25 AM CDT [facility] SODIUM S/P/B 145 136 - 145 MMOL/L 07/25/2022 9:25 AM CDT [facility] POTASSIUM S/P/B 4.1 3.5 - 5.1 MMOL/L 07/25/2022 9:25 AM CDT [facility] CHLORIDE S/P/B 111(H) 100 - 108 MMOL/L 07/25/2022 9:25 AM [facility] CO2 24.0 21 - 32 MMOL/L 07/25/2022 9:25 AM [facility] CALCIUM S/P/B 8.2(L) 8.5 - 10.1 MG/DL 07/25/2022 9:25 AM [facility] BILIRUBIN TOTAL S/P/B 2.2(H) 0.2 - 1.2 MG/DL 07/25/2022 9:25 AM [facility] TOTAL PROTEIN S/P/B 5.9(L) 6.4 - 8.2 G/DL 07/25/2022 9:25 AM [facility] ALBUMIN S/P/B 3.1(L) 3.4 - 5.0 G/DL 07/25/2022 9:25 AM [facility] AST 128(H) 15 - 37 U/L 07/25/2022 9:25 AM [facility] ALT 95(H) 16 - 60 U/L 07/25/2022 9:25 AM [facility] ALKALINE PHOSPHATASE S/P/B 288(H) 50 - 136 U/L 07/25/2022 9:25 AM [facility] ANION GAP 10.0 5 - 15 MMOL/L 07/25/2022 9:25 AM [facility] BUN CREATININE RATIO 10.8 6 - 26 07/25/2022 9:25 AM [facility] A/G RATIO 1.1 1.0 - 2.0 RATIO 07/25/2022 9:25 AM [facility] GFR ESTIMATE >90 >90 ML/MIN/1.7 3 M2 07/25/2022 9:25 AM [facility] Comment: NOTE: eGFR is not calculated for patients <18 years of age. This is an estimated GFR calculation using the new CKD EPI creatinine equation without race and so does not require a correction factor for race. This estimated GFR should not be used for calculating drug doses. 07/25/2022 8:36 AM CDT Madelaine Martínez BLEACHING 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 LABORATORY Final Re sult [facility] [address] [place] [address], * (ABNORMAL) CBC, AUTO, NO DIFF (07/25/2022 8:36 AM CDT) WBC 8.5 4.4 - 11.0 x10'3/uL 07/25/2022 9:10 AM CDT [facility] RBC 3.66(L) 4.50 - 5.90 x10'6/uL 07/25/2022 9:10 AM CDT [facility] HGB 13.2(L) 14.0 - 17.5 G/DL 07/25/2022 9:10 AM CDT [facility] HCT 37.6(L) 41.5 - 50.4 % 07/25/2022 9:10 AM CDT [facility] MCV 102.7(H) 80.0 - 96.0 FL 07/25/2022 9:10 AM CDT [facility] MCH 36.1(H) 26.5 - 31.4 PG 07/25/2022 9:10 AM CDT [facility] MCHC 35.1(H) 31.9 - 34.8 G/DL 07/25/2022 9:10 AM CDT [facility] RDW 17.0(H) 12.3 - 14.3 % 07/25/2022 9:10 AM CDT [facility] PLT 213 151 - 353 x10'3/uL 07/25/2022 9:10 AM CDT [facility] MPV 11.5 9.7 - 11.9 FL 07/25/2022 9:10 AM CDT [facility] 07/25/2022 8:36 AM CDT Madelaine Martínez BLEACHING 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 LABORATORY Final Re sult [facility] [address] [place] [address], documented in this encounter Visit Diagnoses Diagnosis Liver replaced by transplant (CMS/HCC HHS/HCC) Liver replaced by transplant 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
--- OUTSIDE RECORDS SUMMARY | 2024-10-28 06:00 | XMS_ITS | Encounter Summary ---
Author Organization [facility] Address [facility]6 [facility] [place] [address] [place] [address] Care Team Providers Care Car Mechanic Helper Name Role Phone Guero Colunga DO Primary Care Provider [phone] Encounter Details Date Type Department Care Team (Late st Contact Info) Description 08/08/2022 7:51 AM CDT - 08/08/2022 7:52 AM CDT Hospital Encounter [facility] [address] [place] [address] Madelaine Martínez, AIDEN 4590 [facility] [address] [place] [address] Discharge Disposition: Home or Self Care (Routine [...] suspected to have Coronavirus/COVID-19? No / Unsure 08/08/2022 7:51 AM CDT documented as of this encounter [...] Associated Diagnosis Comments COMPREHENSIVE METABOLIC PANEL Routine 08/08/2022 8:01 AM CDT Liver replaced by transplant (CMS/HCC HHS/HCC) CBC, AUTO, NO DIFF Routine 08/08/2022 8: 01 AM CDT Liver replaced by transplant (CMS/HCC HHS/HCC) GGT, GAMMA GLUTAMYLTRANSFERASE Routine 08/08/2022 8:01 AM CDT Liver replaced by transplant (CMS/HCC HHS/HCC) TACROLIMUS Routine 08/08/2022 8:01 AM CDT Liver replaced by transplant (CMS/HCC HHS/HCC) documented in this encounter Results * TACROLIMUS (08/08/2022 8:01 AM CDT) TACROLIMUS 3.2 mcg/L 08/11/2022 2:16 PM CDT [employer] JASON JACKSON Comment: No definitive therapeutic or toxic ranges have been established. Optimal blood drug levels are influenced by type of transplant, patient response, time post- transplant, co-administration of other drugs, and drug formulation. The following trough range is a suggested guideline: ? 5.0-20.0 mcg/L This test was developed and its analytical performance characteristics have been determined by [facility] [place], [place]. It has not been cleared or approved by the U.S. Food and Drug Administration. This assay has been validated pursuant to the CLIA regulations and is used for clinical purposes. Test Performed by Leti Vazquez, [employer] [facility] [place], [address] [place] [address] Severino Chavez M.D., Ph.D., Director of Laboratories , CLIA [id number] 08/08/2022 8:01 AM CDT Madelaine Martínez ADMISSIONS ASSISTANT LABORATORY Final Re sult [facility] SARAH [place]ALKERLETI [address] [place] [address], [place] [phone] * (ABNORMAL) GGT, GAMMA GLUTAMYLTRANSFERASE (08/08/2022 8:01 AM CDT) GGT 129(H) 15.0 - 85.0 U/L 08/08/2022 4:17 PM CDT [facility] 08/08/2022 8:01 AM CDT Madelaine Martínez ADMISSIONS ASSISTANT LABORATORY Final Re sult Performing Organization Address City/[facility]/ZIP Co de Phone Number [facility] [address] [place] [address], [place] [phone] * (ABNORMAL) COMPREHENSIVE METABOLIC PANEL (08/08/2022 8:01 AM CDT) GLUCOSE 97 70 - 99 MG/DL 08/08/2022 8:35 AM CDT [facility] BUN 7 7 - 18 MG/DL 08/08/2022 8:35 AM CDT [facility] CREATININE S/P/B 0.82 0.7 - 1.3 MG/DL 08/08/2022 8:35 AM CDT [facility] SODIUM S/P/B 140 136 - 145 MMOL/L 08/08/2022 8:35 AM CDT [facility] POTASSIUM S/P/B 4.5 3.5 - 5.1 MMOL/L 08/08/2022 8:35 AM CDT [facility] CHLORIDE S/P/B 106 100 - 108 MMOL/L 08/08/2022 8:35 AM CDT [facility] CO2 26.2 21 - 32 MMOL/L 08/08/2022 8:35 AM [facility] CALCIUM S/P/B 8.5 8.5 - 10.1 MG/DL 08/08/2022 8:35 AM [facility] BILIRUBIN TOTAL S/P/B 1.6(H) 0.2 - 1.2 MG/DL 08/08/2022 8:35 AM [facility] TOTAL PROTEIN S/P/B 6.0(L) 6.4 - 8.2 G/DL 08/08/2022 8:35 AM [facility] ALBUMIN S/P/B 3.1(L) 3.4 - 5.0 G/DL 08/08/2022 8:35 AM [facility] AST 107(H) 15 - 37 U/L 08/08/2022 8:35 AM [facility] ALT 86(H) 16 - 60 U/L 08/08/2022 8:35 AM [facility] ALKALINE PHOSPHATASE S/P/B 308(H) 50 - 136 U/L 08/08/2022 8:35 AM [facility] ANION GAP 7.8 5 - 15 MMOL/L 08/08/2022 8:35 AM [facility] BUN CREATININE RATIO 8.5 6 - 26 08/08/2022 8:35 AM [facility] A/G RATIO 1.1 1.0 - 2.0 RATIO 08/08/2022 8:35 AM [facility] GFR ESTIMATE >90 >90 ML/MIN/1.7 3 M2 08/08/2022 8:35 AM [facility] Comment: NOTE: eGFR is not calculated for patients <18 years of age. This is an estimated GFR calculation using the new CKD EPI creatinine equation without race and so does not require a correction factor for race. This estimated GFR should not be used for calculating drug doses. 08/08/2022 8:01 AM CDT us Madelaine Martínez ADMISSIONS ASSISTANT LABORATORY Final Re sult [facility] [address] [place] [address], * (ABNORMAL) CBC, AUTO, NO DIFF (08/08/2022 8:01 AM CDT) WBC 8.8 4.4 - 11.0 x10'3/uL 08/08/2022 8:23 AM CDT [facility] RBC 3.79(L) 4.50 - 5.90 x10'6/uL 08/08/2022 8:23 AM CDT [facility] HGB 13.9(L) 14.0 - 17.5 G/DL 08/08/2022 8:23 AM CDT [facility] HCT 39.3(L) 41.5 - 50.4 % 08/08/2022 8:23 AM CDT [facility] MCV 103.7(H) 80.0 - 96.0 FL 08/08/2022 8:23 AM CDT [facility] MCH 36.7(H) 26.5 - 31.4 PG 08/08/2022 8:23 AM CDT [facility] MCHC 35.4(H) 31.9 - 34.8 G/DL 08/08/2022 8:23 AM CDT [facility] RDW 16.7(H) 12.3 - 14.3 % 08/08/2022 8:23 AM CDT [facility] PLT 219 151 - 353 x10'3/uL 08/08/2022 8:23 AM CDT [facility] MPV 10.2 9.7 - 11.9 FL 08/08/2022 8:23 AM CDT [facility] 08/08/2022 8:0 1 AM CDT Madelaine Martínez ADMISSIONS ASSISTANT LABORATORY Final Re sult [facility] [address] [place] [address], documented in this encounter Visit Diagnoses Diagnosis Liver replaced by transplant (CMS/HCC HHS/HCC) Liver replaced by transplant documented in this encounter Care Teams Car Mechanic Helper Relationship Specialty Start Date End Date Guero Colunga DO [address] [address] PCP - General INTERNAL MEDICINE 06/16/21 documented as of this encounter
--- OUTSIDE RECORDS SUMMARY | 2024-10-28 06:00 | XMS_ITS | Encounter Summary ---
Author Organization [facility] Address [address] [place] [address]. [place] [address] [place] [address] Care Team Providers Care Regulatory Technician Name Role Phone Guero Colunga DO Primary Care Provider [phone] Encounter Details Date Type Department Care Team (Late st Contact Info) Description 04/28/2022 7:16 AM CDT - 04/28/2022 11:59 PM CDT Hospital Encounter [facility] [address] [place] [address] Jil Duncan MD 1 [facility] DIV [place] [address] Discharge Disposition: Home or Self Care (Routine [...] suspected to have Coronavirus/COVID-19? No / Unsure 04/28/2022 7:13 AM CDT documented as of this encounter [...] CMV DNA QUANT REAL TIME PCR Routine 04/28/2022 7:22 AM CDT Cytomegaloviral disease (CMS/HCC HHS/HCC) documented in this encounter Results * (ABNORMAL) CMV DNA QUANT REAL TIME PCR (04/28/2022 7:22 AM CDT) SPECIMEN SOURCE SERUM 3:47 PM CDT [facility] CMV DNA QN PCR (BLD) 228(HH) IU/mL 04/30/2022 2:45 PM CDT [facility] [employer] CMV DNA QUANT PCR (BLD) 2.36(H) log IU/mL 04/30/2022 2:45 PM CDT [facility] Comment: REFERENCE RANGE: NOT DETECTED This test was developed and its analytical performance characteristics have been determined by [facility] [place], [place]. It has not been cleared or approved by the U.S. Food and Drug Administration. This assay has been validated pursuant to the CLIA regulations and is used for clinical purposes. For additional information, please refer to http://education.[employer]/faq/CMVandEBVPCR (This link is being provided for informational/ educational purposes only.) Test Performed by [facility], [facility] [place], [address] [place], [place] Severino Chavez M.D., Ph.D., Director of Laboratories , CLIA [id number] 04/28/2022 7:22 AM CDT us Jil Duncan MD LABORATORY Final Result [facility] [place] [id number] [place], [place] , [facility] [address] [place] [id number] [phone] documented in this encounter Visit Diagnoses Diagnosis Cytomegaloviral disease ([facility]/HCC [facility]) Cytomegaloviral disease documented in this encounter Care Teams Regulatory Technician Relationship Specialty Start Date End Date Guero Colunga DO [address] [id number] PCP - General INTERNAL MEDICINE 06/16/21 documented as of this encounter
--- OUTSIDE RECORDS SUMMARY | 2024-10-28 06:00 | XMS_ITS | Encounter Summary ---
Author Organization [facility] Address [facility]6 [facility] [place] [address] [place] [address] Care Team Providers Care Reporting Specialist Name Role Phone Guero Colunga DO Primary Care Provider [phone] Encounter Details Date Type Department Care Team (Late st Contact Info) Description 06/27/2022 Orders Only [facility] [address] [place] [address] Madelaine Martínez, AIDEN [address] [facility] [address] [place] [id number] Social History Tobacco Use Types Packs/Day Years [...] documented as of this encounter Results * TACROLIMUS (06/27/2022 8:32 AM CDT) TACROLIMUS 3.4 mcg/L 06/30/2022 11:01 PM CDT [facility] JASON JACKSON Comment: No definitive therapeutic or toxic ranges have been established. Optimal blood drug levels are influenced by type of transplant, patient response, time post- transplant, co-administration of other drugs, and drug formulation. The following trough range is a suggested guideline: ? 5.0-20.0 mcg/L This test was developed and its analytical performance characteristics have been determined by [facility] [place], [place]. It has not been cleared or approved by the U.S. Food and Drug Administration. This assay has been validated pursuant to the CLIA regulations and is used for clinical purposes. Test Performed by [facility], [facility], [address], [place] Severino Chavez M.D., Ph.D., Director of Laboratories , CLIA [id number] 06/27/2022 8:32 AM CDT Madelaine Martínez [facility] Final Re sult Performing Organization Address City/[facility]/ZIP Co de Phone Number [facility] [place] [id number] [place], [place] , [place] [phone] * (ABNORMAL) GGT, GAMMA GLUTAMYLTRANSFERASE (06/27/2022 8:32 AM CDT) Pathologist [facility] GGT 131(H) 15.0 - 85.0 U/L 06/27/2022 12:04 PM CDT [facility] 06/27/2022 8:32 AM CDT Madelaine Martínez [facility] Final Re sult Performing Organization Address [facility]/ZIP Co de Phone Number [facility] [address] [place] [address], [place] [phone] * (ABNORMAL) COMPREHENSIVE METABOLIC PANEL (06/27/2022 8:32 AM CDT) [facility] GLUCOSE 145(H) 70 - 99 MG/DL 06/27/2022 9:04 AM [facility] BUN 11 7 - 18 MG/DL 06/27/2022 9:04 AM [facility] CREATININE S/P/B 1.00 0.7 - 1.3 MG/DL 06/27/2022 9:04 AM [facility] SODIUM S/P/B 140 136 - 145 MMOL/L 06/27/2022 9:04 AM [facility] POTASSIUM S/P/B 4.0 3.5 - 5.1 MMOL/L 06/27/2022 9:04 AM [facility] CHLORIDE S/P/B 107 100 - 108 MMOL/L 06/27/2022 9:04 AM [facility] CO2 26.1 21 - 32 MMOL/L 06/27/2022 9:04 AM [facility] CALCIUM S/P/B 8.4(L) 8.5 - 10.1 MG/DL 06/27/2022 9:04 AM [facility] BILIRUBIN TOTAL S/P/B 2.4(H) 0.2 - 1.2 MG/DL 06/27/2022 9:04 AM [facility] Comment: THIS ASSAY IS NOT RECOMMENDED FOR PATIENTS UNDERGOING TREATMENT WITH ELTROMBOPAG DUE TO THE POTENTIAL FOR FALSELY ELEVATED RESULTS. TOTAL PROTEIN S/P/B 5.9(L) 6.4 - 8.2 G/DL 06/27/2022 9:04 AM [facility] ALBUMIN S/P/B 2.8(L) 3.4 - 5.0 G/DL 06/27/2022 9:04 AM [facility] AST 132(H) 15 - 37 U/L 06/27/2022 9:04 AM CDT [facility] ALT 115(H) 16 - 60 U/L 06/27/2022 9:04 AM T [facility] ALKALINE PHOSPHATASE S/P/B 271(H) 50 - 136 U/L 06/27/2022 9:04 AM T [facility] ANION GAP 6.9 5 - 15 MMOL/L 06/27/2022 9:04 AM T [facility] BUN CREATININE RATIO 11.0 6 - 26 06/27/2022 9:04 AM T [facility] A/G RATIO 0.9(L) 1.0 - 2.0 RATIO 06/27/2022 9:04 AM T [facility] GFR ESTIMATE >90 >90 ML/MIN/1.7 3 M2 06/27/2022 9:04 AM T [facility] Comment: NOTE: eGFR is not calculated for patients <18 years of age. This is an estimated GFR calculation using the new CKD EPI creatinine equation without race and so does not require a correction factor for race. This estimated GFR should not be used for calculating drug doses. 06/27/2022 8:32 AM CDT Madelaine Martínez NP LABORATORY Final Re sult [facility] [address] [place] [address], * (ABNORMAL) CBC W/DIFF AUTOMATED (06/27/2022 8:32 AM CDT) WBC 10.5 4.8 - 10.8 x10'3/uL 06/27/2022 8:49 AM CDT [facility] RBC 3.47(L) 4.50 - 5.90 x10'6/uL 06/27/2022 8:49 AM CDT [facility] HGB 12.4(L) 13.5 - 17.5 G/DL 06/27/2022 8:49 AM CDT [facility] HCT 35.6(L) 41 - 53 % 06/27/2022 8:49 AM CDT [facility] MCV 102.6(H) 80 - 100 FL 06/27/2022 8:49 AM CDT [facility] MCH 35.7(H) 26.0 - 34.0 PG 06/27/2022 8:49 AM CDT [facility] MCHC 34.8 31.0 - 37.0 G/DL 06/27/2022 8:49 AM CDT [facility] RDW 16.7(H) 11.5 - 14.5 % 06/27/2022 8:49 AM CDT [facility] PLT 180 150 - 350 x10'3/uL 06/27/2022 8:49 AM CDT [facility] MPV 11.0(H) 7.0 - 10.4 FL 06/27/2022 8:49 AM CDT [facility] SEG NEUTROPHILS 21(L) 50 - 70 % 12:01 PM CDT [facility] LYMPHOCYTES 41 18 - 42 % 06/27/2022 12:01 PM CDT [facility] MONOCYTES 13(H) 2 - 11 % 06/27/2022 12:01 PM CDT [facility] EOSINOPHILS 25(H) 1.0 - 3.0 % 06/27/2022 12:01 PM CDT [facility] ABS. NEUTROPHILS TOTAL 2.21 1.69 - 7.81 x10'3/uL 06/27/2022 12:01 PM CDT [facility] ABS. LYMPHOCYTES 4.29 0.21 - 5.42 x10'3/uL 06/27/2022 12:01 PM CDT [facility] ABS. MONOCYTES 1.37 0.04 - 1.37 x10'3/uL 06/27/2022 12:01 PM CDT [facility] ABS. EOSINOPHILS 2.63(H) 0.00 - 0.68 x10'3/uL 06/27/2022 12:01 PM CDT [facility] PLT MORPH. NORMAL 06/27/2022 12:01 PM CDT [facility] RBC MORPHOLOGY 2+ 06/27/2022 12:01 PM CDT [facility] Comment: ANISOCYTOSIS 1+ POIKILOCYTOSIS 1+ HYPOCHROMASIA 06/27/2022 8:32 AM CDT us Madelaine Martínez [facility] Final Re sult [facility] [address] [place] [address], documented in this encounter Visit Diagnoses Diagnosis Liver transplanted (CMS/HCC HHS/HCC)- Primary Liver replaced by transplant documented in this encounter Care Teams Reporting Specialist Relationship Specialty Start Date End Date Guero Colunga DO [address] [address] PCP - General INTERNAL MEDICINE 06/16/21 documented as of this encounter
--- OUTSIDE RECORDS SUMMARY | 2024-10-28 06:00 | XMS_ITS | Encounter Summary ---
Author Organization [facility] Address [facility] access hospital6 [facility] [place] [address] [place] [address] Care Team Providers Care Clam Grower Name Role Phone CristineGuero galicia Primary Care Provider [phone] Reason for Referral * (Routine) - Closed Specialty Diagnoses / Procedures Referred By Sascha t Referred To Contact Procedures LACERATION REPAIR Jacek Lara DO [address] [place] [address] Phone: tel: fax: Referral ID Status Reason Start Date Expiration Date Visits Re quested Visits Authorized [id number] Closed 04/05/2022 05/05/2023 1 1 Reason for Visit * Reason Comments Laceration Encounter Details Date Type Department Care Team (Late st Contact Info) Description 04/05/2022 11:13 AM CDT - 04/05/2022 12:[address] [facility] Emergency Room [address] [place] [address] Jacek Lara DO [address] [place] [address] Laceration Discharge Disposition: Home or Self Care (Routine [...] suspected to have Coronavirus/COVID-19? No / Unsure 04/05/2022 11:15 AM CDT documented as of this encounter Last Filed Vital Signs Vital Sign Reading Time Taken Comments Blood Pressure 112/58 04/05/2022 11:30 AM CDT Pulse 84 04/05/2022 11:16 AM CDT Temperature 37.2 ??C (99 ??F) 04/05/2022 11:16 AM CDT Respiratory Rate 18 04/05/2022 11:16 AM CDT Oxygen Saturation 97% 04/05/2022 11:45 AM CDT Inhaled Oxygen Concentration - - Weight 63.5 kg (140 lb) 04/05/2022 11:16 AM CDT Height 172.7 cm (5' 8 ) 04/05/2022 11:16 AM CDT Body Mass Index 21.29 04/05/2022 11:16 AM CDT documented in this encounter Discharge Instructions * Discharge Instructions* Jacek Lara DO - 04/05/2022 12:01 PM CDT 1. Clean with soap and water once or twice a day 2. Keep covered with a dressing or bandage 3. Avoid soaking for long periods of time. Can shower with wounds. * Attachments The following attachments cannot be sent through Care Everywhere. * Laceration Repair With Stitches Discharge Instructions (Urdu) documented in this encounter Medications at Time of Discharge tacrolimus 0.5 MG capsule Take 0.5 mg by mouth 2 (two) times daily. ursodiol 300 MG capsule Take 600 mg by mouth daily. 10/02/2021 documented as of this encounter ED Notes * Tohsa Calvo RN - 04/05/2022 12:07 PM CDT Pt discharged home with instructions and dressing in place states understanding * Jacek Lara, DO - 04/05/2022 11:45 AM CDTAssociated Order(s): Lac Repair Chief Complaint Chief Complaint Patient presents with ??? Laceration History of Present Illness 27-year-old male presents emergency department for right forearm laceration. Patient states a dog house/chicken house fell off a lift, injuring his right forearm prior to arrival. Tetanus is up-to-date. No numbness or tingling to right arm. Moving all fingers of right hand. Medical History ALLERGIES: No Known Allergies MEDICATIONS: Prior to Admission medications Medication Sig Start Date End Date Taking? Authorizing Provider tacrolimus 0.5 MG capsule Take 0.5 mg by mouth 2 (two) times daily. Yes Doc Abstract ursodiol 300 MG capsule Take 600 mg by mouth daily. 10/02/21 Yes Doc Abstract PAST MEDICAL HISTORY: Past Medical History: Diagnosis Date ??? Liver transplanted (CMS/HCC) ??? Non Hodgkin's lymphoma (CMS/HCC) ??? Platelet disorder (CMS/HCC) PAST SURGICAL HISTORY: Past Surgical History: Procedure Laterality Date ??? REMOVAL SPLEEN, TOTAL FAMILY HISTORY: No family history on file. SOCIAL HISTORY: Social History Tobacco Use ??? Smoking status: Former Smoker ??? Smokeless tobacco: Current User Vaping Use ??? Vaping Use: Never used Substance Use Topics ??? Alcohol use: Yes Comment: socially ??? Drug use: Never Review of Systems Review of Systems Constitutional: Negative for chills and fever. HENT: Negative for congestion and sore throat. Eyes: Negative for pain and visual disturbance. Respiratory: Negative for cough, shortness of breath and wheezing. Cardiovascular: Negative for chest pain and palpitations. Gastrointestinal: Negative for abdominal pain, nausea and vomiting. Endocrine: Negative for polydipsia and polyuria. Genitourinary: Negative for dysuria and flank pain. Musculoskeletal: Negative for arthralgias and myalgias. Skin: Positive for wound. Negative for rash. 4 cm right forearm laceration Neurological: Negative for dizziness and weakness. Psychiatric/Behavioral: Negative for agitation. All other systems reviewed and are negative. Physical Exam Filed Vitals: 04/05/22 1116 04/05/22 1130 04/05/22 1145 BP: 118/64 112/58 Pulse: 84 Resp: 18 Temp: 99 ??F (37.2 ??C) TempSrc: Temporal SpO2: 99% 97% 97% Weight: 63.5 kg (140 lb) Height: 5' 8 (1.727 m) Physical Exam Vitals and nursing note reviewed. Constitutional: General: He is not in acute distress. Appearance: Normal appearance. He is not ill-appearing. HENT: Head: Normocephalic and atraumatic. Right Ear: External ear normal. Left Ear: External ear normal. Nose: Nose normal. Mouth/Throat: Mouth: Mucous membranes are moist. Pharynx: Oropharynx is clear. Eyes: Extraocular Movements: Extraocular movements intact. Conjunctiva/sclera: Conjunctivae normal. Pupils: Pupils are equal, round, and reactive to light. Cardiovascular: Rate and Rhythm: Normal rate and regular rhythm. Pulses: Normal pulses. Heart sounds: Normal heart sounds. Pulmonary: Effort: Pulmonary effort is normal. No respiratory distress. Breath sounds: Normal breath sounds. Abdominal: Tenderness: There is no abdominal tenderness. There is no guarding. Musculoskeletal: General: No swelling or tenderness. Normal range of motion. Cervical back: Normal range of motion and neck supple. No rigidity. No muscular tenderness. Skin: General: Skin is warm and dry. Capillary Refill: Capillary refill takes less than 2 seconds. Comments: 4 cm right forearm laceration Neurological: General: No focal deficit present. Mental Status: He is alert and oriented to person, place, and time. Psychiatric: Mood and Affect: Mood normal. Behavior: Behavior normal. Diagnostic Studies / Procedures ELECTROCARDIOGRAMS: No results found for this visit on 04/05/22. LABORATORY STUDIES: No results found for this visit on 04/05/22. IMAGING STUDIES XR FOREARM RT 2V Final Result by User, [id number] (04/05 1153) 2 VIEWS OF THE RIGHT FOREARM Clinical History: Laceration Comparison: None 2 views of the right forearm demonstrate the bony elements to be intact. There is no evidence of fracture or dislocation. The surrounding soft tissues appear normal. No radiopaque foreign body is seen IMPRESSION: No acute findings Ordered By: JACEK LARA Interpreted By: Matthew Eugene MD, 04/05/2022 11:52 AM Lac Repair Date/Time: 04/05/2022 11:40 AM Performed by: Jacek Lara DO Authorized by: Jacek Lara DO Consent: Consent obtained: Verbal Consent given by: Patient Risks discussed: Infection, pain, poor cosmetic result and need for additional repair Alternatives discussed: No treatment and delayed treatment Driggs protocol: Imaging studies available: yes Patient identity confirmed: Verbally with patient Anesthesia: Anesthesia method: Local infiltration Local anesthetic: Lidocaine 1% w/o epi Laceration details: Location: right forearm. Length (cm): 4 Pre-procedure details: Preparation: Patient was prepped and draped in usual sterile fashion and imaging obtained to evaluate for foreign bodies Exploration: Hemostasis achieved with: Direct pressure Imaging obtained: x-ray Imaging outcome: foreign body not noted Wound exploration: wound explored through full range of motion and entire depth of wound visualized Wound extent: no tendon damage noted and no vascular damage noted Treatment: Area cleansed with: Saline Amount of cleaning: Standard Irrigation solution: Sterile saline Irrigation method: Pressure wash Debridement: None Undermining: None Skin repair: Repair method: Sutures Suture size: 3-0 Suture material: Nylon Suture technique: Simple interrupted Number of sutures: 7 Approximation: Approximation: Close Repair type: Repair type: Simple Post-procedure details: Dressing: Non-adherent dressing Procedure completion: Tolerated ED Course / Medical Decision Making 12:00PM -reevaluated patient, no new complaints. Counseled patient to clean with soap and water once or twice a day. Keep covered with a dressing or bandage. Have sutures removed in about 7 days. MDM Number of Diagnoses or Management Options Amount and/or Complexity of Data Reviewed Tests in the radiology section of CPT??: reviewed and ordered Clinical Impression Laceration of right forearm, initial encounter (Primary) Disposition: Discharge DO Jacek LAN DO 04/05/22 1405 * Tosha Calvo RN - 04/05/2022 11:18 AM CDT Pt ambulated in with c/o laceration to the right forarm states while carrying a dog house it slide and cut his arm documented in this encounter Plan of Treatment Not on file documented as of this encounter Procedures Procedure Name Priority Date/Time Associated Diagnosis Comments XR FOREARM RT 2V STAT 04/05/2022 11:5 0 AM CDT LACERATION REPAIR Routine 04/05/2022 11: 40 AM CDT documented in this encounter Results * XR FOREARM RT 2V (04/05/2022 11:50 AM CDT) Anatomical Region Laterality Modality Forearm Radiographic Shilpi ging 04/05/2022 11:5 2 AM CDT Impressions 04/05/2022 11:52 AM CDT IMPRESSION: No acute findings Ordered By: JACEK LARA Interpreted By: Matthew Eugene MD, 04/05/2022 11:52 AM Narrative 04/05/2022 11:52 AM CDT 2 VIEWS OF THE RIGHT FOREARM Clinical History: Laceration Comparison: None 2 views of the right forearm demonstrate the bony elements to be intact. There is no evidence of fracture or dislocation. The surrounding soft tissues appear normal. No radiopaque foreign body is seen Procedure Note Matthew Eugene MD - 04/05/2022 2 VIEWS OF THE RIGHT FOREARM Clinical History: Laceration Comparison: None 2 views of the right forearm demonstrate the bony elements to be intact.There is no evidence of fracture or dislocation. The surrounding softtissues appear normal. No radiopaque foreign body is seen IMPRESSION: No acute findings Ordered By: JACEK LARA Interpreted By: Matthew Eugene MD, 04/05/2022 11:52 AM Jacek Lara DO GENERAL IMAGING Final Res ult * Lac Repair (04/05/2022 11:40 AM CDT) Jacek Camilo DO - 04/05/2022 11:40 AM CDT Jacek Lara, DO ? 04/05/2022 ??2:05 PM Lac Repair Date/Time: 04/05/2022 11:40 AM Performed by: Jacek Lara DO Authorized by: Jacek Lara DO Consent: ??Consent obtained: ??Verbal ??Consent given by: ??Patient ??Risks discussed: ??Infection, pain, poor cosmetic result and need for additional repair ??Alternatives discussed: ??No treatment and delayed treatment Driggs protocol: ??Imaging studies available: yes ?Patient identity confirmed: ??Verbally with patient Anesthesia: ??Anesthesia method: ??Local infiltration ??Local anesthetic: ??Lidocaine 1% w/o epi Laceration details: ??Location: right forearm. ??Length (cm): ??4 Pre-procedure details: ??Preparation: ??Patient was prepped and draped in usual sterile fashion and imaging obtained to evaluate for foreign bodies Exploration: ??Hemostasis achieved with: ??Direct pressure ??Imaging obtained: x-ray ?Imaging outcome: foreign body not noted ?Wound exploration: wound explored through full range of motion and entire depth of wound visualized ?Wound extent: no tendon damage noted and no vascular damage noted ?? Treatment: ??Area cleansed with: ??Saline ??Amount of cleaning: ??Standard ??Irrigation solution: ??Sterile saline ??Irrigation method: ??Pressure wash ??Debridement: ??None ??Undermining: ??None Skin repair: ??Repair method: ??Sutures ??Suture size: ??3-0 ??Suture material: ??Nylon ??Suture technique: ??Simple interrupted ??Number of sutures: ??7 Approximation: ??Approximation: ??Close Repair type: ??Repair type: ??Simple Post-procedure details: ??Dressing: ??Non-adherent dressing ??Procedure completion: ??Tolerated Jacek Lara DO PROCEDURE/MINOR SURGICAL ORDERABLES Final Result documented in this encounter Visit Diagnoses Diagnosis Laceration of right forearm, initial encounter- Primary documented in this encounter Active and Recently Administered Medications Times are shown in CDT. Scheduled Medication Order 04/03/2022 04/04/2022 04/05/2022 lidocaine (XYLOCAINE) 1 % injection SOLN 5 mL 5 mL, Intradermal, Once, 1 dose, On 04/05/22 at 1130 1130 (Canceled Entry - Provider: Automatic Discharge Provider - Comment: Automatically canceled at discontinue of medication order) Tdap (ADACEL) injection 0.5 mL 0.5 mL, Intramuscular, Once, 1 dose, On 04/05/22 at 1130, Shake Well 1130 (Canceled Entry - Provider: Automatic Discharge Provider - Comment: Automatically canceled at discontinue of medication order) documented in this encounter Care Teams Clam Grower Relationship Specialty Start Date End Date Guero Colunga DO [address] [place] [id number] PCP - General INTERNAL MEDICINE 06/16/21 documented as of this encounter
--- OUTSIDE RECORDS SUMMARY | 2024-10-28 06:00 | XMS_ITS | Encounter Summary ---
Author Organization [facility] Address [facility] [place] [address] [place] [address] Care Team Providers Care Seam Sewer Name Role Phone Guero Colunga DO Primary Care Provider [phone] Encounter Details Date Type Department Care Team (Late st Contact Info) Description 04/17/2022 Orders Only [facility] [address] [place] [address] Madelaine Martínez, AIDEN 4590 [facility] [address] [place] [address] Social History Tobacco Use Types Packs/Day Years [...] as of this encounter Results * TACROLIMUS (04/17/2022 7:42 AM CDT) TACROLIMUS 10.8 mcg/L 04/20/2022 6:55 AM CDT [employer] JASON JACKSON Comment: No definitive therapeutic or toxic ranges have been established. Optimal blood drug levels are influenced by type of transplant, patient response, time post- transplant, co-administration of other drugs, and drug formulation. The following trough range is a suggested guideline: ? 5.0-20.0 mcg/L This test was developed and its analytical performance characteristics have been determined by [employer] [place], [place]. It has not been cleared or approved by the U.S. Food and Drug Administration. This assay has been validated pursuant to the CLIA regulations and is used for clinical purposes. Test Performed by [facility], [employer] [facility], [address] [place], [place] Severino Chavez M.D., Ph.D., Director of Laboratories , CLIA [id number] 04/17/2022 7:42 AM CDT Madelaine Martínez VOCATIONAL COUNSELOR LABORATORY Final Re sult Performing Organization Address City/[facility]/ZIP Co de Phone Number [employer] [place] [id number] [place], [place] , [place] [phone] * (ABNORMAL) GGT, GAMMA GLUTAMYLTRANSFERASE (04/17/2022 7:42 AM CDT) Pathologist [facility] GGT 122(H) 15.0 - 85.0 U/L 04/17/2022 2:04 PM CDT [facility] 04/17/2022 7:42 AM CDT Madelaine Martínez VOCATIONAL COUNSELOR LABORATORY Final Re sult Performing Organization Address City/[facility]/ZIP Co de Phone Number [facility] [address] [place] [address], [place] [phone] * (ABNORMAL) COMPREHENSIVE METABOLIC PANEL (04/17/2022 7:42 AM CDT) [facility] GLUCOSE 96 70 - 99 MG/DL 04/17/2022 9:14 AM CDT [facility] BUN 15 7 - 18 MG/DL 04/17/2022 9:14 AM T [facility] CREATININE S/P/B 1.20 0.7 - 1.3 MG/DL 04/17/2022 9:14 AM T [facility] SODIUM S/P/B 143 136 - 145 MMOL/L 04/17/2022 9:14 AM T [facility] POTASSIUM S/P/B 3.9 3.5 - 5.1 MMOL/L 04/17/2022 9:14 AM [facility] CHLORIDE S/P/B 112(H) 100 - 108 MMOL/L 04/17/2022 9:14 AM T [facility] CO2 24.6 21 - 32 MMOL/L 04/17/2022 9:14 AM T [facility] CALCIUM S/P/B 8.4(L) 8.5 - 10.1 MG/DL 04/17/2022 9:14 AM [facility] BILIRUBIN TOTAL S/P/B 2.1(H) 0.2 - 1.2 MG/DL 04/17/2022 9:14 AM T [facility] Comment: THIS ASSAY IS NOT RECOMMENDED FOR PATIENTS UNDERGOING TREATMENT WITH ELTROMBOPAG DUE TO THE POTENTIAL FOR FALSELY ELEVATED RESULTS. TOTAL PROTEIN S/P/B 5.9(L) 6.4 - 8.2 G/DL 04/17/2022 9:14 AM [facility] ALBUMIN S/P/B 3.2(L) 3.4 - 5.0 G/DL 04/17/2022 9:14 AM [facility] AST 97(H) 15 - 37 U/L 04/17/2022 9:14 AM CDT [facility] ALT 98(H) 16 - 60 U/L 04/17/2022 9:14 AM CDT [facility] ALKALINE PHOSPHATASE S/P/B 342(H) 50 - 136 U/L 04/17/2022 9:14 AM CDT [facility] ANION GAP 6.4 5 - 15 MMOL/L 04/17/2022 9:14 AM T [facility] BUN CREATININE RATIO 12.5 6 - 26 04/17/2022 9:14 AM T [facility] A/G RATIO 1.2 1.0 - 2.0 RATIO 04/17/2022 9:14 AM T [facility] GFR ESTIMATE 84(L) >90 ML/MIN/1.7 3 M2 04/17/2022 9:14 AM T [facility] Comment: NOTE: eGFR is not calculated for patients <18 years of age. This is an estimated GFR calculation using the new CKD EPI creatinine equation without race and so does not require a correction factor for race. This estimated GFR should not be used for calculating drug doses. 04/17/2022 7:42 AM CDT Madelaine Martínez NP LABORATORY Final Re sult [facility] [address] [place] [address], [place] [phone] * (ABNORMAL) CBC W/DIFF AUTOMATED (04/17/2022 7:41 AM CDT) WBC 10.3 4.8 - 10.8 x10'3/uL 04/17/2022 9:23 AM CDT [facility] RBC 3.88(L) 4.50 - 5.90 x10'6/uL 04/17/2022 9:23 AM CDT [facility] HGB 13.2(L) 13.5 - 17.5 G/DL 04/17/2022 9:23 AM CDT [facility] HCT 37.7(L) 41 - 53 % 04/17/2022 9:23 AM CDT [facility] MCV 97.2 80 - 100 FL 04/17/2022 9:23 AM CDT [facility] MCH 34.0 26.0 - 34.0 PG 04/17/2022 9:23 AM CDT [facility] MCHC 35.0 31.0 - 37.0 G/DL 04/17/2022 9:23 AM CDT [facility] RDW 16.5(H) 11.5 - 14.5 % 04/17/2022 9:23 AM T [facility] PLT 199 150 - 350 x10'3/uL 04/17/2022 9:23 AM T [facility] MPV 11.7(H) 7.0 - 10.4 FL 04/17/2022 9:23 AM T [facility] SEG NEUTROPHILS 36(L) 50 - 70 % 9:39 AM CDT [facility] LYMPHOCYTES 49(H) 18 - 42 % 04/17/2022 9:39 AM CDT [facility] MONOCYTES 15(H) 2 - 11 % 04/17/2022 9:39 AM CDT [facility] ABS. NEUTROPHILS TOTAL 3.71 1.69 - 7.81 x10'3/uL 04/17/2022 9:39 AM CDT [facility] ABS. LYMPHOCYTES 5.04 0.21 - 5.42 x10'3/uL 04/17/2022 9:39 AM CDT [facility] ABS. MONOCYTES 1.55(H) 0.04 - 1.37 x10'3/uL 04/17/2022 9:39 AM CDT [facility] PLT MORPH. NORMAL 04/17/2022 9:39 AM CDT [facility] RBC MORPHOLOGY 1+ 04/17/2022 9:39 AM CDT [facility] Comment: ANISOCYTOSIS 1+ JACQUI CELLS 04/17/2022 7:41 AM CDT us Madelaine Martínez VOCATIONAL COUNSELOR LABORATORY Final Re sult [facility] [address] [place] [phone], documented in this encounter Visit Diagnoses Diagnosis Liver replaced by transplant (CMS/HCC HHS/HCC)- Primary Liver replaced by transplant documented in this encounter Care Teams Seam Sewer Relationship Specialty Start Date End Date Guero Colunga DO [address] [address] PCP - General INTERNAL MEDICINE 06/16/21 documented as of this encounter
--- OUTSIDE RECORDS SUMMARY | 2024-10-28 06:00 | XMS_ITS | Encounter Summary ---
Author Organization [facility] Address [address] [place] [address]. [place] [address] [place] [address] Care Team Providers Care Kennel Attendant Name Role Phone Guero Colunga DO Primary Care Provider Encounter Details Date Type Department Care Team (Late st Contact Info) Description 07/25/2022 8:07 AM CDT - 07/25/2022 11:59 PM CDT Hospital Encounter [facility] [address] [place] [address] Jil Duncan MD [address] [facility] [address] DIV [place] [address] Discharge Disposition: Home or Self Care (Routine [...] CMV DNA QUANT REAL TIME PCR Routine 07/25/2022 8:36 AM CDT Cytomegaloviral disease (CMS/HCC HHS/HCC) documented in this encounter Results * (ABNORMAL) CMV DNA QUANT REAL TIME PCR (07/25/2022 8:36 AM CDT) SPECIMEN SOURCE BLOOD 3:16 PM CDT [facility] CMV DNA QN PCR (BLD) 1,203() IU/mL 07/27/2022 1:34 PM CDT [employer] [facility] CMV DNA QUANT PCR (BLD) 3.08(H) log IU/mL 07/27/2022 1:34 PM CDT [employer] [facility] Comment: REFERENCE RANGE: NOT DETECTED This test was developed and its analytical performance characteristics have been determined by [employer] [place], [place]. It has not been cleared or approved by the U.S. Food and Drug Administration. This assay has been validated pursuant to the CLIA regulations and is used for clinical purposes. 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
--- OUTSIDE RECORDS SUMMARY | 2024-10-28 06:00 | XMS_ITS | Encounter Summary ---
Author Organization [facility] Address [address] [place] [address]. [place] [address] [place] [address] Care Team Providers Care Director Check Name Role Phone Guero Colunga DO Primary Care Provider [phone] Encounter Details Date Type Department Care Team (Late st Contact Info) Description 06/27/2022 Orders Only [facility] [address] [place] [address] Jil Duncan MD [address] [facility] [facility] [facility] [address] [place] [address] Social History Tobacco Use Types Packs/Day Years [...] CDT) SPECIMEN SOURCE BLOOD 2:42 PM CDT [facility] () [facility] CMV DNA QN PCR (BLD) 43,564( ) IU/mL 06/30/2022 9:37 AM CDT [facility] JASON LY CMV DNA QUANT PCR (BLD) 4.64(H) log IU/mL 06/30/2022 9:37 AM CDT [facility] AMINTA-ANIBAL LY Comment: REFERENCE RANGE: NOT DETECTED This test was developed and its analytical performance characteristics have been determined by [employer], [place]. It has not been cleared or approved by the U.S. Food and Drug Administration. This assay has been validated pursuant to the CLIA regulations and is used for clinical purposes. For additional information, please refer to http://education.[employer]/faq/CMVandEBVPCR (This link is being provided for informational/ educational purposes only.) Test Performed by [employer], [employer] [facility], [address] [place] [address] Severino Chavez M.D., Ph.D., Director of Laboratories , CLIA [id number] 06/27/2022 8:32 AM CDT us Jil Duncan MD LABORATORY Final Result [employer] [address] [address], [place] [phone] [facility] [address] [place] [address], [place] [phone] documented in this encounter Visit Diagnoses Diagnosis 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
--- OUTSIDE RECORDS SUMMARY | 2024-10-28 06:00 | XMS_ITS | Encounter Summary ---
Author Organization [facility] Address [address] [place] [address]. [place] [address] [place] [address] Care Team Providers Care Director Data Name Role Phone Guero Colunga DO Primary Care Provider Encounter Details Date Type Department Care Team (Late st Contact Info) Description 04/28/2022 Orders Only [facility] [address] [place] [address] Jil Duncan MD [address] [facility] [address] [place] [address] Social History Tobacco Use Types Packs/Day Years [...] CDT) SPECIMEN SOURCE SERUM 3:47 PM CDT [facility] () [facility] CMV DNA QN PCR (BLD) 228(HH) IU/mL 04/30/2022 2:45 PM CDT [facility] JASON LY CMV DNA QUANT PCR (BLD) 2.36(H) log IU/mL 04/30/2022 2:45 PM CDT [employer] JASON LY Comment: REFERENCE RANGE: NOT DETECTED This test was developed and its analytical performance characteristics have been determined by [employer] [place], [place]. It has not been cleared or approved by the U.S. Food and Drug Administration. This assay has been validated pursuant to the CLIA regulations and is used for clinical purposes. For additional information, please refer to http://education.Chatalog.Zemanta/faq/CMVandEBVPCR (This link is being provided for informational/ educational purposes only.) Test Performed by [employer], [employer] [facility], [address] [place] [address] Severino Chavez M.D., Ph.D., Director of Laboratories , CLIA [id number] 04/28/2022 7:22 AM CDT us Jil Duncan MD LABORATORY Final Result [employer] [address] , [place] [phone] [facility] [address] [place] [address], [place] [phone] documented in this encounter Visit Diagnoses Diagnosis 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
--- OUTSIDE RECORDS SUMMARY | 2024-10-28 06:00 | XMS_ITS | Encounter Summary ---
Author Organization [facility] Address [facility]6 [place] [address] [place] [address] Care Team Providers Care Solutions Delivery Consultant Name Role Phone Guero Colunga DO Primary Care Provider [phone] Encounter Details Date Type Department Care Team (Late st Contact Info) Description 07/18/2022 Orders Only [facility] [address] [place], [place] [id number] Madelaine Martínez, AIDEN 4590 [facility] [address] [place] [address] Social History Tobacco Use Types Packs/Day Years [...] transplant documented in this encounter Care Teams Solutions Delivery Consultant Relationship Specialty Start Date End Date Guero Colunga DO 2089 [facility] [address] [place] [address] PCP - General INTERNAL MEDICINE 06/16/21 documented as of this encounter
--- OUTSIDE RECORDS SUMMARY | 2024-10-28 06:00 | XMS_ITS | Encounter Summary ---
Author Organization [facility] Address [address] [place] [address]. [place] [address] [place] [address] Care Team Providers Care Eyelet Maker Name Role Phone Guero Colunga DO Primary Care Provider [phone] Encounter Details Date Type Department Care Team (Late st Contact Info) Description 04/04/2022 Orders Only [facility] [address] [place] [address] Jil Duncan MD 1 [facility] [address] [place] [address] Social History Tobacco Use Types Packs/Day Years [...] suspected to have Coronavirus/COVID-19? No / Unsure 04/04/2022 7:03 AM CDT documented as of this encounter Plan of Treatment Not on file documented as of this encounter Results * (ABNORMAL) CMV DNA QUANT REAL TIME PCR (04/04/2022 7:20 AM CDT) SPECIMEN SOURCE BLOOD 7:22 AM CDT [facility] (B) [facility] CMV DNA QN PCR (BLD) REPORT(A) 04/07/2022 7:05 AM CDT [employer] JASON RENETTA Comment: CMV DNA, QN PCR ?<200 Detected H ?IU/mL ? CMV DNA was detected below 200 IU/mL. Viral load in this range cannot be accurately quantified by the assay. CMV DNA QUANT PCR (BLD) REPORT(A) 04/07/2022 7:05 AM CDT [employer] JASON RENETTA Comment: CMV DNA, QN PCR ?<2.30 Detected H ?log IU/mL ? REFERENCE RANGE: NOT DETECTED This test was developed and its analytical performance characteristics have been determined by [employer] [place], [place]. It has not been cleared or approved by the U.S. Food and Drug Administration. This assay has been validated pursuant to the CLIA regulations and is used for clinical purposes. For additional information, please refer to http://education.[employer]ium/faq/CMVandEBVPCR (This link is being provided for informational/ educational purposes only.) Test Performed by [facility], [employer] [place], [address] [place] [address] Severino Chavez M.D., Ph.D., Director of Laboratories , CLIA [id number] 04/04/2022 7:20 AM CDT us Jil Duncan MD LABORATORY Final Result [employer] [facility] [id number] [place], [place] , [place] [phone] [facility] [address] [place] [address], [place] [phone] documented in this encounter Visit Diagnoses Diagnosis Transplant, organ- Primary Unspecified organ or tissue replaced by transplant documented in this encounter Care Teams Eyelet Maker Relationship Specialty Start Date End Date Guero Colunga DO [address] [address] PCP - General INTERNAL MEDICINE 06/16/21 documented as of this encounter
--- OUTSIDE RECORDS SUMMARY | 2024-10-28 06:00 | XMS_ITS | Encounter Summary ---
Author Organization [facility] Address Critical access hospital6 [facility] [address] [place] [address] Care Team Providers Care Erp Business Analyst Name Role Phone Guero Colunga DO Primary Care Provider [phone] Encounter Details Date Type Department Care Team (Late st Contact Info) Description 06/20/2022 Orders Only [facility] [address] [place] [address] Madelaine Martínez, AIDEN [address] [facility] [address] [place] [address] Social History Tobacco Use Types Packs/Day Years [...] as of this encounter Results * TACROLIMUS (06/20/2022 9:17 AM CDT) TACROLIMUS 4.5 mcg/L 06/23/2022 6:29 AM CDT [employer] JASON JACKSON Comment: No definitive therapeutic or toxic ranges have been established. Optimal blood drug levels are influenced by type of transplant, patient response, time post- transplant, co-administration of other drugs, and drug formulation. The following trough range is a suggested guideline: ? 5.0-20.0 mcg/L This test was developed and its analytical performance characteristics have been determined by [employer] [place], [place]. It has not been cleared or approved by the U.S. Food and Drug Administration. This assay has been validated pursuant to the CLIA regulations and is used for clinical purposes. Test Performed by [facility], [employer] [facility], [address] [place], [place] Severino Chavez M.D., Ph.D., Director of Laboratories , CLIA [id number] 06/20/2022 9:17 AM CDT Madelaine Martínez CONSOLIDATION ACCOUNTANT LABORATORY Final Re sult Performing Organization Address City/[facility]/ZIP Co de Phone Number [employer] [place] [id number] [place], [place] , [place] [phone] * (ABNORMAL) GGT, GAMMA GLUTAMYLTRANSFERASE (06/20/2022 9:17 AM CDT) Pathologist [facility] GGT 122(H) 15.0 - 85.0 U/L 06/21/2022 12:28 PM CDT [facility] 06/20/2022 9:17 AM CDT Madelaine Martínez CONSOLIDATION ACCOUNTANT LABORATORY Final Re sult Performing Organization Address City/[facility]/ZIP Co de Phone Number [facility] [address] [place] [address], [place] [phone] * (ABNORMAL) COMPREHENSIVE METABOLIC PANEL (06/20/2022 9:17 AM CDT) [facility] GLUCOSE 115(H) 70 - 99 MG/DL 06/20/2022 10:31 AM T [facility] BUN 15 7 - 18 MG/DL 06/20/2022 10:31 AM [facility] CREATININE S/P/B 1.10 0.7 - 1.3 MG/DL 06/20/2022 10:31 AM [facility] SODIUM S/P/B 143 136 - 145 MMOL/L 06/20/2022 10:31 AM [facility] POTASSIUM S/P/B 4.2 3.5 - 5.1 MMOL/L 06/20/2022 10:31 AM [facility] CHLORIDE S/P/B 111(H) 100 - 108 MMOL/L 06/20/2022 10:31 AM [facility] CO2 23.9 21 - 32 MMOL/L 06/20/2022 10:31 AM [facility] CALCIUM S/P/B 8.7 8.5 - 10.1 MG/DL 06/20/2022 10:31 AM [facility] BILIRUBIN TOTAL S/P/B 2.4(H) 0.2 - 1.2 MG/DL 06/20/2022 10:31 AM [facility] Comment: THIS ASSAY IS NOT RECOMMENDED FOR PATIENTS UNDERGOING TREATMENT WITH ELTROMBOPAG DUE TO THE POTENTIAL FOR FALSELY ELEVATED RESULTS. TOTAL PROTEIN S/P/B 6.1(L) 6.4 - 8.2 G/DL 06/20/2022 10:31 AM [facility] ALBUMIN S/P/B 2.9(L) 3.4 - 5.0 G/DL 06/20/2022 10:31 AM [facility] AST 114(H) 15 - 37 U/L 06/20/2022 10:31 AM CDT [facility] ALT 91(H) 16 - 60 U/L 06/20/2022 10:31 AM CDT [facility] ALKALINE PHOSPHATASE S/P/B 283(H) 50 - 136 U/L 06/20/2022 10:31 AM CDT [facility] ANION GAP 8.1 5 - 15 MMOL/L 06/20/2022 10:31 AM CDT [facility] BUN CREATININE RATIO 13.6 6 - 26 06/20/2022 10:31 AM T [facility] A/G RATIO 0.9(L) 1.0 - 2.0 RATIO 06/20/2022 10:31 AM T [facility] GFR ESTIMATE >90 >90 ML/MIN/1.7 3 M2 06/20/2022 10:31 AM T [facility] Comment: NOTE: eGFR is not calculated for patients <18 years of age. This is an estimated GFR calculation using the new CKD EPI creatinine equation without race and so does not require a correction factor for race. This estimated GFR should not be used for calculating drug doses. 06/20/2022 9:17 AM CDT Madelaine Martínez NP LABORATORY Final Re sult [facility] [address] [place] [address], [place] [phone] * (ABNORMAL) CBC W/DIFF AUTOMATED (06/20/2022 9:16 AM CDT) WBC 12.1(H) 4.8 - 10.8 x10'3/uL 06/20/2022 9:39 AM CDT [facility] RBC 3.44(L) 4.50 - 5.90 x10'6/uL 06/20/2022 9:39 AM CDT [facility] HGB 12.1(L) 13.5 - 17.5 G/DL 06/20/2022 9:39 AM CDT [facility] HCT 35.2(L) 41 - 53 % 06/20/2022 9:39 AM CDT [facility] MCV 102.3(H) 80 - 100 FL 06/20/2022 9:39 AM CDT [facility] MCH 35.2(H) 26.0 - 34.0 PG 06/20/2022 9:39 AM CDT [facility] MCHC 34.4 31.0 - 37.0 G/DL 06/20/2022 9:39 AM CDT [facility] RDW 17.0(H) 11.5 - 14.5 % 06/20/2022 9:39 AM CDT [facility] PLT 177 150 - 350 x10'3/uL 06/20/2022 9:39 AM CDT [facility] MPV 10.7(H) 7.0 - 10.4 FL 06/20/2022 9:39 AM CDT [facility] SEG NEUTROPHILS 33(L) 50 - 70 % 10:58 AM CDT [facility] LYMPHOCYTES 38 18 - 42 % 06/20/2022 10:58 AM CDT [facility] MONOCYTES 11 2 - 11 % 06/20/2022 10:58 AM CDT [facility] EOSINOPHILS 18(H) 1.0 - 3.0 % 06/20/2022 10:58 AM CDT [facility] ABS. NEUTROPHILS TOTAL 3.99 1.69 - 7.81 x10'3/uL 06/20/2022 10:58 AM CDT [facility] ABS. LYMPHOCYTES 4.60 0.21 - 5.42 x10'3/uL 06/20/2022 10:58 AM CDT [facility] ABS. MONOCYTES 1.33 0.04 - 1.37 x10'3/uL 06/20/2022 10:58 AM CDT [facility] ABS. EOSINOPHILS 2.18(H) 0.00 - 0.68 x10'3/uL 06/20/2022 10:58 AM CDT [facility] PLT MORPH. NORMAL 06/20/2022 10:58 AM CDT [facility] RBC MORPHOLOGY 2+ 06/20/2022 10:58 AM CDT [facility] Comment: ANISOCYTOSIS 1+ POIKILOCYTOSIS 06/20/2022 9:16 AM CDT Madelaine Martínez CONSOLIDATION ACCOUNTANT LABORATORY Final Re sult [facility] [address] [place] [address], documented in this encounter Visit Diagnoses Diagnosis Liver replaced by transplant (CMS/HCC HHS/HCC)- Primary Liver replaced by transplant documented in this encounter Care Teams Erp Business Analyst Relationship Specialty Start Date End Date Guero Colunga DO [address] [address] PCP - General INTERNAL MEDICINE 06/16/21 documented as of this encounter
--- OUTSIDE RECORDS SUMMARY | 2024-10-28 06:00 | XMS_ITS | Encounter Summary ---
Author Organization [facility] Address [facility]6 [facility]. [place], [place] [address] [place] [address] Care Team Providers Care Chairman & Ceo Name Role Phone Guero Colunga DO Primary Care Provider [phone] Encounter Details Date Type Department Care Team (Latest Contact Info) Description 08/08/2022 Travel Social History Tobacco Use Types Packs/Day [...] on filedocumented in this encounter Care Teams Chairman & Ceo Relationship Specialty Start Date End Date Guero Colunga DO 2089 [facility] [address] [place] [address] PCP - General INTERNAL MEDICINE 06/16/21 documented as of this encounter
--- OUTSIDE RECORDS SUMMARY | 2024-10-28 06:00 | XMS_ITS | Encounter Summary ---
Author Organization [facility] Address [facility]6 [facility] [place] [address] [place] [address] Care Team Providers Care Auto Inspector Name Role Phone Guero Colunga DO Primary Care Provider [phone] Encounter Details Date Type Department Care Team (Late st Contact Info) Description 04/28/2022 Orders Only [facility] [address] [place] [address] Madelaine Martínez, AIDEN 4590 [facility] [address] [place] [address] Social History Tobacco Use Types Packs/Day Years [...] as of this encounter Results * TACROLIMUS (04/28/2022 7:21 AM CDT) TACROLIMUS 10.3 mcg/L 05/01/2022 9:16 AM CDT [employer] JASON JACKSON Comment: No definitive therapeutic or toxic ranges have been established. Optimal blood drug levels are influenced by type of transplant, patient response, time post- transplant, co-administration of other drugs, and drug formulation. The following trough range is a suggested guideline: ? 5.0-20.0 mcg/L This test was developed and its analytical performance characteristics have been determined by [employer] [place], [place]. It has not been cleared or approved by the U.S. Food and Drug Administration. This assay has been validated pursuant to the CLIA regulations and is used for clinical purposes. Test Performed by [facility], [employer] [facility], [address] [place], [place] Severino Chavez M.D., Ph.D., Director of Laboratories , CLIA [id number] 04/28/2022 7:21 AM CDT Madelaine Martínez [employer] [facility] [facility] Final Re sult Performing Organization Address City/[facility]/ZIP Co de Phone Number [employer] [place] [id number] [place], [place] , [place] [phone] * (ABNORMAL) GGT, GAMMA GLUTAMYLTRANSFERASE (04/28/2022 7:21 AM CDT) Pathologist [facility] GGT 127(H) 15.0 - 85.0 U/L 04/28/2022 2:27 PM CDT [facility] 04/28/2022 7:21 AM CDT Madelaine Martínez [employer] [facility] Final Re sult Performing Organization Address City/[facility]/ZIP Co de Phone Number [facility] [address] [place] [address], [place] [phone] * (ABNORMAL) COMPREHENSIVE METABOLIC PANEL (04/28/2022 7:21 AM CDT) [facility] GLUCOSE 81 70 - 99 MG/DL 04/28/2022 8:57 AM CDT [facility] BUN 19(H) 7 - 18 MG/DL 04/28/2022 8:57 AM T [facility] CREATININE S/P/B 0.90 0.7 - 1.3 MG/DL 04/28/2022 8:57 AM T [facility] SODIUM S/P/B 146(H) 136 - 145 MMOL/L 04/28/2022 8:57 AM T [facility] POTASSIUM S/P/B 4.3 3.5 - 5.1 MMOL/L 04/28/2022 8:57 AM [facility] CHLORIDE S/P/B 114(H) 100 - 108 MMOL/L 04/28/2022 8:57 AM T [facility] CO2 23.4 21 - 32 MMOL/L 04/28/2022 8:57 AM [facility] CALCIUM S/P/B 8.5 8.5 - 10.1 MG/DL 04/28/2022 8:57 AM [facility] BILIRUBIN TOTAL S/P/B 2.3(H) 0.2 - 1.2 MG/DL 04/28/2022 8:57 AM T [facility] Comment: THIS ASSAY IS NOT RECOMMENDED FOR PATIENTS UNDERGOING TREATMENT WITH ELTROMBOPAG DUE TO THE POTENTIAL FOR FALSELY ELEVATED RESULTS. TOTAL PROTEIN S/P/B 6.4 6.4 - 8.2 G/DL 04/28/2022 8:57 AM [facility] ALBUMIN S/P/B 3.1(L) 3.4 - 5.0 G/DL 04/28/2022 8:57 AM [facility] AST 83(H) 15 - 37 U/L 04/28/2022 8:57 AM CDT [facility] ALT 75(H) 16 - 60 U/L 04/28/2022 8:57 AM CDT [facility] ALKALINE PHOSPHATASE S/P/B 339(H) 50 - 136 U/L 04/28/2022 8:57 AM CDT [facility] ANION GAP 8.6 5 - 15 MMOL/L 04/28/2022 8:57 AM CDT [facility] BUN CREATININE RATIO 21.1 6 - 26 04/28/2022 8:57 AM T [facility] A/G RATIO 0.9(L) 1.0 - 2.0 RATIO 04/28/2022 8:57 AM CDT [facility] GFR ESTIMATE >90 >90 ML/MIN/1.7 3 M2 04/28/2022 8:57 AM T [facility] Comment: NOTE: eGFR is not calculated for patients <18 years of age. This is an estimated GFR calculation using the new CKD EPI creatinine equation without race and so does not require a correction factor for race. This estimated GFR should not be used for calculating drug doses. 04/28/2022 7:21 AM CDT Madelaine Martínez NP LABORATORY Final Re sult [facility] [address] [place] [address], [place] [phone] * (ABNORMAL) CBC W/DIFF AUTOMATED (04/28/2022 7:21 AM CDT) WBC 12.4(H) 4.8 - 10.8 x10'3/uL 04/28/2022 8:35 AM CDT [facility] RBC 3.73(L) 4.50 - 5.90 x10'6/uL 04/28/2022 8:35 AM CDT [facility] HGB 12.5(L) 13.5 - 17.5 G/DL 04/28/2022 8:35 AM CDT [facility] HCT 36.2(L) 41 - 53 % 04/28/2022 8:35 AM CDT [facility] MCV 97.1 80 - 100 FL 04/28/2022 8:35 AM CDT [facility] MCH 33.5 26.0 - 34.0 PG 04/28/2022 8:35 AM CDT [facility] MCHC 34.5 31.0 - 37.0 G/DL 04/28/2022 8:35 AM CDT [facility] RDW 18.2(H) 11.5 - 14.5 % 04/28/2022 8:35 AM CDT [facility] PLT 194 150 - 350 x10'3/uL 04/28/2022 8:35 AM CDT [facility] MPV 11.5(H) 7.0 - 10.4 FL 04/28/2022 8:35 AM CDT [facility] SEG NEUTROPHILS 55 50 - 70 % 8:53 AM CDT [facility] LYMPHOCYTES 30 18 - 42 % 04/28/2022 8:53 AM CDT [facility] MONOCYTES 12(H) 2 - 11 % 04/28/2022 8:53 AM CDT [facility] EOSINOPHILS 3 1.0 - 3.0 % 04/28/2022 8:53 AM CDT [facility] ABS. NEUTROPHILS TOTAL 6.82 1.69 - 7.81 x10'3/uL 04/28/2022 8:53 AM CDT [facility] ABS. LYMPHOCYTES 3.72 0.21 - 5.42 x10'3/uL 04/28/2022 8:53 AM CDT [facility] ABS. MONOCYTES 1.49(H) 0.04 - 1.37 x10'3/uL 04/28/2022 8:53 AM CDT [facility] ABS. EOSINOPHILS 0.37 0.00 - 0.68 x10'3/uL 04/28/2022 8:53 AM CDT [facility] PLT MORPH. GIANT PLATELETS 04/28/2022 8:53 AM CDT [facility] RBC MORPHOLOGY 2+ 04/28/2022 8:53 AM CDT [facility] Comment: ANISOCYTOSIS PRESENT JACQUI CELLS PRESENT SCHISTOCYTES WBC MORPHOLOGY SMUDGE CELLS 04/28/20 8:53 AM CDT [facility] 04/28/2022 7:21 AM CDT us Madelaine Martínez [employer] [facility] Final Re sult [facility] [address] [place] [id number], documented in this encounter Visit Diagnoses Diagnosis Liver replaced by transplant (CMS/HCC HHS/HCC)- Primary Liver replaced by transplant documented in this encounter Care Teams Auto Inspector Relationship Specialty Start Date End Date Guero Colunga DO [address] [employer] [address] [address] PCP - General INTERNAL MEDICINE 06/16/21 documented as of this encounter
--- OUTSIDE RECORDS SUMMARY | 2024-10-28 06:00 | XMS_ITS | Encounter Summary ---
Author Organization [facility] Address [facility]6 [facility]. [place], [place] [address] [place] [address] Care Team Providers Care Freight Trucker Name Role Phone Guero Colunga DO Primary Care Provider [phone] Encounter Details Date Type Department Care Team (Latest Contact Info) Description 04/05/2022 Travel Social History Tobacco Use Types Packs/Day [...] on filedocumented in this encounter Care Teams Freight Trucker Relationship Specialty Start Date End Date Guero Colunga DO 2089 [facility] [address] [place] [address] PCP - General INTERNAL MEDICINE 06/16/21 documented as of this encounter
--- OUTSIDE RECORDS SUMMARY | 2024-10-28 06:00 | XMS_ITS | Encounter Summary ---
Author Organization [facility] Address [address] [place] [address]. [place] [address] [place] [address] Care Team Providers Care Wholesale Account Manager Name Role Phone Guero Colunga DO Primary Care Provider [phone] Encounter Details Date Type Department Care Team (Late st Contact Info) Description 08/08/2022 7:53 AM CDT - 08/08/2022 11:59 PM CDT Hospital Encounter [facility] [address] [place] [address] Jil Duncan MD [address] [facility] DIV IM [place] [address] Discharge Disposition: Home or Self Care (Routine [...] CMV DNA QUANT REAL TIME PCR Routine 08/08/2022 8:01 AM CDT Cytomegaloviral disease (CMS/HCC HHS/HCC) documented in this encounter Results * (ABNORMAL) CMV DNA QUANT REAL TIME PCR (08/08/2022 8:01 AM CDT) SPECIMEN SOURCE WHOLE BLOOD 08/08/2022 3:38 PM CDT [facility] CMV DNA QN PCR (BLD) 2,499(HH) IU/mL 08/11/2022 12:43 AM CDT [email or web address] CMV DNA QUANT PCR (BLD) 3.40(H) log IU/mL 08/11/2022 12:43 AM CDT [email or web address] Comment: REFERENCE RANGE: NOT DETECTED This test was developed and its analytical performance characteristics have been determined by [employer] [place], [place]. It has not been cleared or approved by the U.S. Food and Drug Administration. This assay has been validated pursuant to the CLIA regulations and is used for clinical purposes. For additional information, please refer to http://education.[employer]/faq/CMVandEBVPCR (This link is being provided for informational/ educational purposes only.) Test Performed by [facility], [employer] [place], [address] [place], [place] Severino Chavez M.D., Ph.D., Director of Laboratories , CLIA [id number] 08/08/2022 8:01 AM CDT us Jil Duncan MD LABORATORY Final Result [place] [address] [place], [place] , [facility] [address] [place] [address], documented in this encounter Visit Diagnoses Diagnosis Cytomegaloviral disease ([facility]/HCC [facility]) Cytomegaloviral disease documented in this encounter Care Teams Wholesale Account Manager Relationship Specialty Start Date End Date Guero Colunga DO [address] [address] PCP - General INTERNAL MEDICINE 06/16/21 documented as of this encounter
--- OUTSIDE RECORDS SUMMARY | 2024-10-28 06:00 | XMS_ITS | Encounter Summary ---
Author Organization [facility] Address [facility]6 [facility] [place] [address] [place] [address] Care Team Providers Care Surgical Appliances Salesperson Name Role Phone Guero Colunga DO Primary Care Provider [phone] Encounter Details Date Type Department Care Team (Late st Contact Info) Description 04/28/2022 7:13 AM CDT - 04/28/2022 7:15 AM CDT Hospital Encounter [facility] [address] [place] [address] Madelaine Martínez, AIDEN [address] [address] Discharge Disposition: Home or Self Care (Routine [...] Associated Diagnosis Comments COMPREHENSIVE METABOLIC PANEL Routine 04/28/2022 7:21 AM CDT Liver replaced by transplant (CMS/HCC HHS/HCC) CBC W/DIFF AUTOMATED Routine 04/28/2022 7:21 AM CDT Liver replaced by transplant (CMS/HCC HHS/HCC) GGT, GAMMA GLUTAMYLTRANSFERASE Routine 04/28/2022 7:21 AM CDT Liver replaced by transplant (CMS/HCC HHS/HCC) TACROLIMUS Routine 04/28/2022 7:21 AM CDT Liver replaced by transplant (CMS/HCC HHS/HCC) documented in this encounter Results * TACROLIMUS (04/28/2022 7:21 AM CDT) TACROLIMUS 10.3 mcg/L 05/01/2022 9:16 AM CDT [employer] JASON JACKSON Comment: No definitive therapeutic or toxic ranges have been established. Optimal blood drug levels are influenced by type of transplant, patient response, time post- transplant, co-administration of other drugs, and drug formulation. The following trough range is a suggested guideline: ? 5.0-20.0 mcg/L This test was developed and its analytical performance characteristics have been determined by [employer] [place], [place]. It has not been cleared or approved by the U.S. Food and Drug Administration. This assay has been validated pursuant to the CLIA regulations and is used for clinical purposes. Test Performed by Girish Vazquez, [employer] [place], [address] [place] [address] Severino Chavez M.D., Ph.D., Director of Laboratories , CLIA [id number] 04/28/2022 7:21 AM CDT Madelaine Martínez PRIVACY ANALYST LABORATORY Final Re sult [employer] [address] [place] [address], [place] [phone] * (ABNORMAL) GGT, GAMMA GLUTAMYLTRANSFERASE (04/28/2022 7:21 AM CDT) GGT 127(H) 15.0 - 85.0 U/L 04/28/2022 2:27 PM CDT [facility] 04/28/2022 7:21 AM CDT Madelaine Martínez PRIVACY ANALYST LABORATORY Final Re sult Performing Organization Address City/[facility]/ZIP Co de Phone Number [facility] [address] [place] [address], [place] [phone] * (ABNORMAL) COMPREHENSIVE METABOLIC PANEL (04/28/2022 7:21 AM CDT) GLUCOSE 81 70 - 99 MG/DL 04/28/2022 8:57 AM CDT [facility] BUN 19(H) 7 - 18 MG/DL 04/28/2022 8:57 AM CDT [facility] CREATININE S/P/B 0.90 0.7 - 1.3 MG/DL 04/28/2022 8:57 AM CDT [facility] SODIUM S/P/B 146(H) 136 - 145 MMOL/L 04/28/2022 8:57 AM CDT [facility] POTASSIUM S/P/B 4.3 3.5 - 5.1 MMOL/L 04/28/2022 8:57 AM CDT [facility] CHLORIDE S/P/B 114(H) 100 - 108 MMOL/L 04/28/2022 8:57 AM CDT [facility] CO2 23.4 21 - 32 MMOL/L 04/28/2022 8:57 AM T [facility] CALCIUM S/P/B 8.5 8.5 - 10.1 MG/DL 04/28/2022 8:57 AM [facility] BILIRUBIN TOTAL S/P/B 2.3(H) 0.2 - 1.2 MG/DL 04/28/2022 8:57 AM T [facility] Comment: THIS ASSAY IS NOT RECOMMENDED FOR PATIENTS UNDERGOING TREATMENT WITH ELTROMBOPAG DUE TO THE POTENTIAL FOR FALSELY ELEVATED RESULTS. TOTAL PROTEIN S/P/B 6.4 6.4 - 8.2 G/DL 04/28/2022 8:57 AM [facility] ALBUMIN S/P/B 3.1(L) 3.4 - 5.0 G/DL 04/28/2022 8:57 AM [facility] AST 83(H) 15 - 37 U/L 04/28/2022 8:57 AM [facility] ALT 75(H) 16 - 60 U/L 04/28/2022 8:57 AM [facility] ALKALINE PHOSPHATASE S/P/B 339(H) 50 - 136 U/L 04/28/2022 8:57 AM [facility] ANION GAP 8.6 5 - 15 MMOL/L 04/28/2022 8:57 AM [facility] BUN CREATININE RATIO 21.1 6 - 26 04/28/2022 8:57 AM [facility] A/G RATIO 0.9(L) 1.0 - 2.0 RATIO 04/28/2022 8:57 AM [facility] GFR ESTIMATE >90 >90 ML/MIN/1.7 3 M2 04/28/2022 8:57 AM CDT [facility] Comment: NOTE: eGFR is not calculated for patients <18 years of age. This is an estimated GFR calculation using the new CKD EPI creatinine equation without race and so does not require a correction factor for race. This estimated GFR should not be used for calculating drug doses. 04/28/2022 7:21 AM CDT Madelaine Martínez PRIVACY ANALYST LABORATORY Final Re sult [facility] [address] [place] [address], [place] [phone] * (ABNORMAL) CBC W/DIFF AUTOMATED (04/28/2022 7:21 AM CDT) WBC 12.4(H) 4.8 - 10.8 x10'3/uL 04/28/2022 8:35 AM CDT [facility] RBC 3.73(L) 4.50 - 5.90 x10'6/uL 04/28/2022 8:35 AM CDT [facility] HGB 12.5(L) 13.5 - 17.5 G/DL 04/28/2022 8:35 AM CDT [facility] HCT 36.2(L) 41 - 53 % 04/28/2022 8:35 AM CDT [facility] MCV 97.1 80 - 100 FL 04/28/2022 8:35 AM CDT [facility] MCH 33.5 26.0 - 34.0 PG 04/28/2022 8:35 AM CDT [facility] MCHC 34.5 31.0 - 37.0 G/DL 04/28/2022 8:35 AM CDT [facility] RDW 18.2(H) 11.5 - 14.5 % 04/28/2022 8:35 AM CDT [facility] PLT 194 150 - 350 x10'3/uL 04/28/2022 8:35 AM CDT [facility] MPV 11.5(H) 7.0 - 10.4 FL 04/28/2022 8:35 AM CDT [facility] SEG NEUTROPHILS 55 50 - 70 % 8:53 AM CDT [facility] LYMPHOCYTES 30 18 - 42 % 04/28/2022 8:53 AM CDT [facility] MONOCYTES 12(H) 2 - 11 % 04/28/2022 8:53 AM T [facility] EOSINOPHILS 3 1.0 - 3.0 % 04/28/2022 8:53 AM T [facility] ABS. NEUTROPHILS TOTAL 6.82 1.69 - 7.81 x10'3/uL 04/28/2022 8:53 AM T [facility] ABS. LYMPHOCYTES 3.72 0.21 - 5.42 x10'3/uL 04/28/2022 8:53 AM T [facility] ABS. MONOCYTES 1.49(H) 0.04 - 1.37 x10'3/uL 04/28/2022 8:53 AM T [facility] ABS. EOSINOPHILS 0.37 0.00 - 0.68 x10'3/uL 04/28/2022 8:53 AM T [facility] PLT MORPH. GIANT PLATELETS 04/28/2022 8:53 AM T [facility] RBC MORPHOLOGY 2+ 04/28/2022 8:53 AM T [facility] Comment: ANISOCYTOSIS PRESENT JACQUI CELLS PRESENT SCHISTOCYTES WBC MORPHOLOGY SMUDGE CELLS 04/28/20 8:53 AM T [facility] 04/28/2022 7:21 AM CDT Madelaine Martínez PRIVACY ANALYST LABORATORY Final Re sult [facility] [address] [place] [address], documented in this encounter Visit Diagnoses Diagnosis Liver replaced by transplant (CMS/HCC HHS/HCC) Liver replaced by transplant documented in this encounter Care Teams Surgical Appliances Salesperson Relationship Specialty Start Date End Date Guero Colunga DO [address] [place] [address] PCP - General INTERNAL MEDICINE 06/16/21 documented as of this encounter
--- OUTSIDE RECORDS SUMMARY | 2024-10-28 06:00 | XMS_ITS | Encounter Summary ---
Author Organization [facility] Address [facility]6 [facility] [place], [place] [address] [place] [address] Care Team Providers Care Flatwork Catcher Name Role Phone Guero Colunga DO Primary Care Provider [phone] Encounter Details Date Type Department Care Team (Latest Contact Info) Description 05/16/2022 Travel Social History Tobacco Use Types Packs/Day [...] suspected to have Coronavirus/COVID-19? No / Unsure 05/16/2022 7:12 AM CDT documented as of this encounter Plan of Treatment Not on file documented as of this encounter Visit Diagnoses Not on filedocumented in this encounter Care Teams Flatwork Catcher Relationship Specialty Start Date End Date Guero Colunga DO 2089 [facility] [address] [place] [address] PCP - General INTERNAL MEDICINE 06/16/21 documented as of this encounter
--- OUTSIDE RECORDS SUMMARY | 2024-10-28 06:00 | XMS_ITS | Encounter Summary ---
Author Organization [facility] Address Pending sale to [facility] [place] [address] [place] [address] Care Team Providers Care Operating Systems Programmer Name Role Phone Guero Colunga DO Primary Care Provider [phone] Encounter Details Date Type Department Care Team (Late st Contact Info) Description 06/27/2022 8:21 AM CDT Hospital Encounter [facility] [address] [place] [address] Madelaine Martínez NP [address] [facility] [address] [place] [address] Discharge Disposition: Home or Self Care (Routine [...] Associated Diagnosis Comments COMPREHENSIVE METABOLIC PANEL Routine 06/27/2022 8:32 AM CDT Liver transplanted (CMS/HCC HHS/HCC) CBC W/DIFF AUTOMATED Routine 06/27/2022 8:32 AM CDT Liver transplanted (CMS/HCC HHS/HCC) GGT, GAMMA GLUTAMYLTRANSFERASE Routine 06/27/2022 8:32 AM CDT Liver transplanted (CMS/HCC HHS/HCC) TACROLIMUS Routine 06/27/2022 8:32 AM CDT Liver transplanted (CMS/HCC HHS/HCC) documented in this encounter Results * TACROLIMUS (06/27/2022 8:32 AM CDT) Pathologist [facility] [place] TACROLIMUS 3.4 mcg/L 06/30/2022 11:01 PM CDT [employer] JASON JACKSON Comment: No definitive therapeutic or toxic ranges have been established. Optimal blood drug levels are influenced by type of transplant, patient response, time post- transplant, co-administration of other drugs, and drug formulation. The following trough range is a suggested guideline: ? 5.0-20.0 mcg/L This test was developed and its analytical performance characteristics have been determined by [facility] [place], [place]. It has not been cleared or approved by the U.S. Food and Drug Administration. This assay has been validated pursuant to the CLIA regulations and is used for clinical purposes. Test Performed by [employer], [facility] [place], [address] [facility], [place], [place] Severino Chavez M.D., Ph.D., Director of Laboratories , CLIA [id number] 06/27/2022 8:32 AM CDT Madelaine Martínez WASHING MACHINE LOADER LABORATORY Final Re sult [employer] [facility] [address] [place] [address], [place] [phone] * (ABNORMAL) GGT, GAMMA GLUTAMYLTRANSFERASE (06/27/2022 8:32 AM CDT) GGT 131(H) 15.0 - 85.0 U/L 06/27/2022 12:04 PM CDT [facility] 06/27/2022 8:32 AM CDT Madelaine Martínez NP LABORATORY Final Re sult Performing Organization Address [facility]/ZIP Co de Phone Number [facility] [address] [place] [address], [place] [phone] * (ABNORMAL) COMPREHENSIVE METABOLIC PANEL (06/27/2022 8:32 AM CDT) GLUCOSE 145(H) 70 - 99 MG/DL 06/27/2022 9:04 AM CDT [facility] BUN 11 7 - 18 MG/DL 06/27/2022 9:04 AM CDT [facility] CREATININE S/P/B 1.00 0.7 - 1.3 MG/DL 06/27/2022 9:04 AM CDT [facility] SODIUM S/P/B 140 136 - 145 MMOL/L 06/27/2022 9:04 AM CDT [facility] POTASSIUM S/P/B 4.0 3.5 - 5.1 MMOL/L 06/27/2022 9:04 AM CDT [facility] CHLORIDE S/P/B 107 100 - 108 MMOL/L 06/27/2022 9:04 AM CDT [facility] CO2 26.1 21 - 32 MMOL/L 06/27/2022 9:04 AM [facility] CALCIUM S/P/B 8.4(L) 8.5 - 10.1 MG/DL 06/27/2022 9:04 AM [facility] BILIRUBIN TOTAL S/P/B 2.4(H) 0.2 - 1.2 MG/DL 06/27/2022 9:04 AM [facility] Comment: THIS ASSAY IS NOT RECOMMENDED FOR PATIENTS UNDERGOING TREATMENT WITH ELTROMBOPAG DUE TO THE POTENTIAL FOR FALSELY ELEVATED RESULTS. TOTAL PROTEIN S/P/B 5.9(L) 6.4 - 8.2 G/DL 06/27/2022 9:04 AM [facility] ALBUMIN S/P/B 2.8(L) 3.4 - 5.0 G/DL 06/27/2022 9:04 AM [facility] AST 132(H) 15 - 37 U/L 06/27/2022 9:04 AM [facility] ALT 115(H) 16 - 60 U/L 06/27/2022 9:04 AM [facility] ALKALINE PHOSPHATASE S/P/B 271(H) 50 - 136 U/L 06/27/2022 9:04 AM [facility] ANION GAP 6.9 5 - 15 MMOL/L 06/27/2022 9:04 AM [facility] BUN CREATININE RATIO 11.0 6 - 26 06/27/2022 9:04 AM [facility] A/G RATIO 0.9(L) 1.0 - 2.0 RATIO 06/27/2022 9:04 AM [facility] GFR ESTIMATE >90 >90 ML/MIN/1.7 3 M2 06/27/2022 9:04 AM [facility] Comment: NOTE: eGFR is not calculated for patients <18 years of age. This is an estimated GFR calculation using the new CKD EPI creatinine equation without race and so does not require a correction factor for race. This estimated GFR should not be used for calculating drug doses. 06/27/2022 8:32 AM CDT Madelaine Martínez WASHING MACHINE LOADER LABORATORY Final Re sult [facility] [address] [place] [address], [place] [phone] * (ABNORMAL) CBC W/DIFF AUTOMATED (06/27/2022 8:32 AM CDT) Pathologist [facility] [place] WBC 10.5 4.8 - 10.8 x10'3/uL 06/27/2022 8:49 AM CDT [facility] RBC 3.47(L) 4.50 - 5.90 x10'6/uL 06/27/2022 8:49 AM CDT [facility] HGB 12.4(L) 13.5 - 17.5 G/DL 06/27/2022 8:49 AM CDT [facility] HCT 35.6(L) 41 - 53 % 06/27/2022 8:49 AM CDT [facility] MCV 102.6(H) 80 - 100 FL 06/27/2022 8:49 AM CDT [facility] MCH 35.7(H) 26.0 - 34.0 PG 06/27/2022 8:49 AM CDT [facility] MCHC 34.8 31.0 - 37.0 G/DL 06/27/2022 8:49 AM CDT [facility] RDW 16.7(H) 11.5 - 14.5 % 06/27/2022 8:49 AM CDT [facility] PLT 180 150 - 350 x10'3/uL 06/27/2022 8:49 AM CDT [facility] MPV 11.0(H) 7.0 - 10.4 FL 06/27/2022 8:49 AM CDT [facility] SEG NEUTROPHILS 21(L) 50 - 70 % 12:01 PM CDT [facility] LYMPHOCYTES 41 18 - 42 % 06/27/2022 12:01 PM T [facility] MONOCYTES 13(H) 2 - 11 % 06/27/2022 12:01 PM T [facility] EOSINOPHILS 25(H) 1.0 - 3.0 % 06/27/2022 12:01 PM T [facility] ABS. NEUTROPHILS TOTAL 2.21 1.69 - 7.81 x10'3/uL 06/27/2022 12:01 PM T [facility] ABS. LYMPHOCYTES 4.29 0.21 - 5.42 x10'3/uL 06/27/2022 12:01 PM T [facility] ABS. MONOCYTES 1.37 0.04 - 1.37 x10'3/uL 06/27/2022 12:01 PM T [facility] ABS. EOSINOPHILS 2.63(H) 0.00 - 0.68 x10'3/uL 06/27/2022 12:01 PM T [facility] PLT MORPH. NORMAL 06/27/2022 12:01 PM T [facility] RBC MORPHOLOGY 2+ 06/27/2022 12:01 PM T [facility] Comment: ANISOCYTOSIS 1+ POIKILOCYTOSIS 1+ HYPOCHROMASIA 06/27/2022 8:32 AM CDT Madelaine Martínez WASHING MACHINE LOADER LABORATORY Final Re sult [facility] [address] [place] [address], documented in this encounter Visit Diagnoses Diagnosis Liver transplanted (CMS/HCC HHS/HCC) Liver replaced by transplant documented in this encounter Care Teams Operating Systems Programmer Relationship Specialty Start Date End Date Guero Colunga DO [address] [place] [address] PCP - General INTERNAL MEDICINE 06/16/21 documented as of this encounter
--- OUTSIDE RECORDS SUMMARY | 2024-10-28 06:00 | XMS_ITS | Encounter Summary ---
Author Organization [facility] Address [facility]6 [facility] [place] [address] [place] [address] Care Team Providers Care Lobby Attendant Name Role Phone Guero Colunga DO Primary Care Provider [phone] Encounter Details Date Type Department Care Team (Late st Contact Info) Description 08/08/2022 Orders Only [facility] [address] [place], [place] [id number] Philip Crum DO [address] [place] [address] Social History Tobacco Use Types Packs/Day Years [...] on filedocumented in this encounter Care Teams Lobby Attendant Relationship Specialty Start Date End Date Guero Colunga DO [address] [facility] [address] [place] [address] PCP - General INTERNAL MEDICINE 06/16/21 documented as of this encounter
--- OUTSIDE RECORDS SUMMARY | 2024-10-28 06:00 | XMS_ITS | Encounter Summary ---
Author Organization [facility] Address [facility]6 [facility]. [place], [place] [address] [place] [address] Care Team Providers Care Residential Mental Health Worker Name Role Phone Guero Colunga DO Primary Care Provider Encounter Details Date Type Department Care Team (Latest Contact Info) Description 06/27/2022 Travel Social History Tobacco Use Types Packs/Day [...] on filedocumented in this encounter Care Teams Residential Mental Health Worker Relationship Specialty Start Date End Date Guero Colunga DO [address] [facility] [address] [place] [address] PCP - General INTERNAL MEDICINE 06/16/21 documented as of this encounter
--- OUTSIDE RECORDS SUMMARY | 2024-10-28 06:00 | XMS_ITS | Encounter Summary ---
Author Organization [facility] Address [facility]. [place], [place] [address] [place] [address] Care Team Providers Care Career Manager Name Role Phone Guero Colunga DO Primary Care Provider [phone] Encounter Details Date Type Department Care Team (Latest Contact Info) Description 04/11/2022 Travel Social History Tobacco Use Types Packs/Day [...] suspected to have Coronavirus/COVID-19? No / Unsure 04/11/2022 7:20 AM CDT documented as of this encounter Plan of Treatment Not on file documented as of this encounter Visit Diagnoses Not on filedocumented in this encounter Care Teams Career Manager Relationship Specialty Start Date End Date Guero Colunga DO [address] [facility] [address] [place] [address] PCP - General INTERNAL MEDICINE 06/16/21 documented as of this encounter
--- OUTSIDE RECORDS SUMMARY | 2024-10-28 06:00 | XMS_ITS | Encounter Summary ---
Author Organization [facility] Address [address] [place] [address]. [place] [address] [place] [address] Care Team Providers Care Optical Dispenser Name Role Phone Guero Colunga DO Primary Care Provider [phone] Encounter Details Date Type Department Care Team (Late st Contact Info) Description 05/16/2022 Orders Only [facility] [address] [place] [address] Jil Duncan MD [address] [facility] [address] DIV [place] [address] Social History Tobacco Use Types Packs/Day Years [...] (ABNORMAL) CMV DNA QUANT REAL TIME PCR (05/16/2022 7:24 AM CDT) SPECIMEN SOURCE WHOLE BLOOD 05/20/2022 7:50 AM CDT [facility] () [facility] CMV DNA QN PCR (BLD) 474(HH) IU/mL 05/19/2022 11:13 PM CDT [facility] JASON LY CMV DNA QUANT PCR (BLD) 2.68(H) log IU/mL 05/19/2022 11:13 PM CDT [facility] JASON JACKSON Comment: REFERENCE RANGE: NOT DETECTED This test was developed and its analytical performance characteristics have been determined [place] It has not been cleared or approved by the U.S. Food and Drug Administration. This assay has been validated pursuant to the CLIA regulations and is used for clinical purposes. For additional information, please refer to http://education.[employer]/faq/CMVandEBVPCR (This link is being provided for informational/ educational purposes only.) Test Performed by [employer], [facility], [address] [place] [address] Severino Chavez M.D., Ph.D., Director of Laboratories , CLIA [id number] 05/16/2022 7:24 AM CDT us Jil Duncan MD LABORATORY Final Result [facility] [address] , [place] [phone] [facility] [address] [place] [address], [place] [phone] documented in this encounter Visit Diagnoses Diagnosis 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
--- OUTSIDE RECORDS SUMMARY | 2024-10-28 06:00 | XMS_ITS | Encounter Summary ---
Author Organization [facility] Address [facility]6 [facility]. [place], [place] [address] [place] [address] Care Team Providers Care Unemployment Insurance Director Name Role Phone Guero Colunga DO Primary Care Provider [phone] Encounter Details Date Type Department Care Team (Latest Contact Info) Description 11/07/2022 Travel Social History Tobacco Use Types Packs/Day [...] suspected to have Coronavirus/COVID-19? No / Unsure 11/07/2022 9:06 AM AIR BRAKE TESTER documented as of this encounter Plan of Treatment Not on file documented as of this encounter Visit Diagnoses Not on filedocumented in this encounter Care Teams Unemployment Insurance Director Relationship Specialty Start Date End Date Guero Colunga DO [address] [facility] [address] [place] [address] PCP - General INTERNAL MEDICINE 06/16/21 documented as of this encounter
--- OUTSIDE RECORDS SUMMARY | 2024-10-28 06:00 | XMS_ITS | Encounter Summary ---
Author Organization [facility] Address [facility] [place] [address] [place] [address] Care Team Providers Care Stockroom Helper Name Role Phone Guero Colunga DO Primary Care Provider [phone] Encounter Details Date Type Department Care Team (Late st Contact Info) Description 04/11/2022 6:59 AM CDT - 04/11/2022 7:18 AM CDT Hospital Encounter [address] [address] Madelaine Martínez, AIDEN [address] [address] Discharge Disposition: Home or Self Care (Routine [...] to have Coronavirus/COVID-19? No / Unsure 04/11/2022 6:59 AM CDT documented as of this encounter [...] Associated Diagnosis Comments COMPREHENSIVE METABOLIC PANEL Routine 04/11/2022 7:05 AM CDT Liver replaced by transplant ([facility]/HCC HHS/HCC) CBC, AUTO, NO DIFF Routine 04/11/2022 7: 05 AM CDT Liver replaced by transplant ([facility]/HCC HHS/HCC) GGT, GAMMA GLUTAMYLTRANSFERASE Routine 04/11/2022 7:05 AM CDT Liver replaced by transplant ([facility]/HCC HHS/HCC) TACROLIMUS Routine 04/11/2022 7:05 AM CDT Liver replaced by transplant ([facility]/HCC HHS/HCC) documented in this encounter Results * (ABNORMAL) CBC, AUTO, NO DIFF (04/11/2022 7:05 AM CDT) WBC 12.6(H) 4.8 - 10.8 x10'3/uL 04/11/2022 7:27 AM CDT [facility] RBC 3.96(L) 4.50 - 5.90 x10'6/uL 04/11/2022 7:27 AM CDT [facility] HGB 13.4(L) 13.5 - 17.5 G/DL 04/11/2022 7:27 AM CDT [facility] HCT 38.2(L) 41 - 53 % 04/11/2022 7:27 AM CDT [facility] MCV 96.5 80 - 100 FL 04/11/2022 7:27 AM CDT [facility] MCH 33.8 26.0 - 34.0 PG 04/11/2022 7:27 AM CDT [facility] MCHC 35.1 31.0 - 37.0 G/DL 04/11/2022 7:27 AM CDT [facility] RDW 15.4(H) 11.5 - 14.5 % 04/11/2022 7:27 AM CDT [facility] PLT 188 150 - 350 x10'3/uL 04/11/2022 7:27 AM CDT [facility] MPV 10.6(H) 7.0 - 10.4 FL 04/11/2022 7:27 AM CDT [facility] 04/11/2022 7:05 AM CDT Madelaine Martínez NP LABORATORY Final Re sult [facility] [address] [place] [address], * TACROLIMUS (04/11/2022 7:05 AM CDT) TACROLIMUS 9.8 mcg/L 04/16/2022 6:22 AM CDT [facility] JASON JACKSON Comment: No definitive therapeutic or toxic ranges have been established. Optimal blood drug levels are influenced by type of transplant, patient response, time post- transplant, co-administration of other drugs, and drug formulation. The following trough range is a suggested guideline: ? 5.0-20.0 mcg/L This test was developed and its analytical performance characteristics have been determined by [facility] [place], [place]. It has not been cleared or approved by the U.S. Food and Drug Administration. This assay has been validated pursuant to the CLIA regulations and is used for clinical purposes. Test Performed by [facility], [facility], [address] [place] [address] Severino Chavez M.D., Ph.D., Director of Laboratories , CLIA [id number] 04/11/2022 7:05 AM CDT Madelaine Martínez REFORMATORY ATTENDANT LABORATORY Final Re sult [facility] [address] [place] [address], [place] [phone] * (ABNORMAL) GGT, GAMMA GLUTAMYLTRANSFERASE (04/11/2022 7:05 AM CDT) GGT 110(H) 15.0 - 85.0 U/L 04/11/2022 10:41 PM CDT [facility] 04/11/2022 7:05 AM CDT Madelaine Martínez REFORMATORY ATTENDANT LABORATORY Final Re sult [facility] [address] [place] [address], [place] [phone] * (ABNORMAL) COMPREHENSIVE METABOLIC PANEL (04/11/2022 7:05 AM CDT) GLUCOSE 95 70 - 99 MG/DL 04/11/2022 7:58 AM CDT [facility] BUN 14 7 - 18 MG/DL 04/11/2022 7:58 AM CDT [facility] CREATININE S/P/B 0.90 0.7 - 1.3 MG/DL 04/11/2022 7:58 AM CDT [facility] SODIUM S/P/B 140 136 - 145 MMOL/L 04/11/2022 7:58 AM CDT [facility] POTASSIUM S/P/B 4.3 3.5 - 5.1 MMOL/L 04/11/2022 7:58 AM CDT [facility] CHLORIDE S/P/B 109(H) 100 - 108 MMOL/L 04/11/2022 7:58 AM T [facility] CO2 24.4 21 - 32 MMOL/L 04/11/2022 7:58 AM [facility] CALCIUM S/P/B 8.3(L) 8.5 - 10.1 MG/DL 04/11/2022 7:58 AM [facility] BILIRUBIN TOTAL S/P/B 2.0(H) 0.2 - 1.2 MG/DL 04/11/2022 7:58 AM [facility] Comment: THIS ASSAY IS NOT RECOMMENDED FOR PATIENTS UNDERGOING TREATMENT WITH ELTROMBOPAG DUE TO THE POTENTIAL FOR FALSELY ELEVATED RESULTS. TOTAL PROTEIN S/P/B 5.7(L) 6.4 - 8.2 G/DL 04/11/2022 7:58 AM [facility] ALBUMIN S/P/B 3.0(L) 3.4 - 5.0 G/DL 04/11/2022 7:58 AM [facility] AST 100(H) 15 - 37 U/L 04/11/2022 7:58 AM [facility] ALT 94(H) 16 - 60 U/L 04/11/2022 7:58 AM [facility] ALKALINE PHOSPHATASE S/P/B 330(H) 50 - 136 U/L 04/11/2022 7:58 AM [facility] ANION GAP 6.6 5 - 15 MMOL/L 04/11/2022 7:58 AM [facility] BUN CREATININE RATIO 15.6 6 - 26 04/11/2022 7:58 AM [facility] A/G RATIO 1.1 1.0 - 2.0 RATIO 04/11/2022 7:58 AM [facility] GFR ESTIMATE >90 >90 ML/MIN/1.7 3 M2 04/11/2022 7:58 AM CDT [facility] Comment: NOTE: eGFR is not calculated for patients <18 years of age. This is an estimated GFR calculation using the new CKD EPI creatinine equation without race and so does not require a correction factor for race. This estimated GFR should not be used for calculating drug doses. 04/11/2022 7:05 AM CDT Madelaine Martínez REFORMATORY ATTENDANT LABORATORY Final Re sult [facility] [address] [place] [address], documented in this encounter Visit Diagnoses Diagnosis Liver replaced by transplant (CMS/HCC HHS/HCC) Liver replaced by transplant documented in this encounter Care Teams Stockroom Helper Relationship Specialty Start Date End Date Guero Colunga DO [address] [place] [address] PCP - General INTERNAL MEDICINE 06/16/21 documented as of this encounter
--- OUTSIDE RECORDS SUMMARY | 2024-10-28 06:00 | XMS_ITS | Encounter Summary ---
Author Organization [facility] Address [facility]6 [facility] [place] [address] [place] [address] Care Team Providers Care Coin Machine Operator Name Role Phone Guero Colunga DO Primary Care Provider [phone] Encounter Details Date Type Department Care Team (Late st Contact Info) Description 04/04/2022 Orders Only [facility] [address] [place] [address] Madelaine Martínez, AIDEN 4590 [facility] [address] [place] [address] Social History Tobacco Use Types Packs/Day Years [...] as of this encounter Results * (ABNORMAL) COMPREHENSIVE METABOLIC PANEL (04/04/2022 7:22 AM CDT) GLUCOSE 98 70 - 99 MG/DL 04/04/2022 8:05 AM CDT [facility] BUN 13 7 - 18 MG/DL 04/04/2022 8:05 AM [facility] CREATININE S/P/B 1.00 0.7 - 1.3 MG/DL 04/04/2022 8:05 AM [facility] SODIUM S/P/B 140 136 - 145 MMOL/L 04/04/2022 8:05 AM [facility] POTASSIUM S/P/B 4.8 3.5 - 5.1 MMOL/L 04/04/2022 8:05 AM [facility] CHLORIDE S/P/B 109(H) 100 - 108 MMOL/L 04/04/2022 8:05 AM [facility] CO2 27.7 21 - 32 MMOL/L 04/04/2022 8:05 AM [facility] CALCIUM S/P/B 8.4(L) 8.5 - 10.1 MG/DL 04/04/2022 8:05 AM [facility] BILIRUBIN TOTAL S/P/B 1.7(H) 0.2 - 1.2 MG/DL 04/04/2022 8:05 AM [facility] Comment: THIS ASSAY IS NOT RECOMMENDED FOR PATIENTS UNDERGOING TREATMENT WITH ELTROMBOPAG DUE TO THE POTENTIAL FOR FALSELY ELEVATED RESULTS. TOTAL PROTEIN S/P/B 6.2(L) 6.4 - 8.2 G/DL 04/04/2022 8:05 AM [facility] ALBUMIN S/P/B 3.1(L) 3.4 - 5.0 G/DL 04/04/2022 8:05 AM [facility] AST 81(H) 15 - 37 U/L 04/04/2022 8:05 AM [facility] ALT 80(H) 16 - 60 U/L 04/04/2022 8:05 AM [facility] ALKALINE PHOSPHATASE S/P/B 344(H) 50 - 136 U/L 04/04/2022 8:05 AM CDT [facility] ANION GAP 3.3(L) 5 - 15 MMOL/L 04/04/2022 8:05 AM CDT [facility] BUN CREATININE RATIO 13.0 6 - 26 04/04/2022 8:05 AM T [facility] A/G RATIO 1.0 1.0 - 2.0 RATIO 04/04/2022 8:05 AM T [facility] GFR ESTIMATE >90 >90 ML/MIN/1.7 3 M2 04/04/2022 8:05 AM T [facility] Comment: NOTE: eGFR is not calculated for patients <18 years of age. This is an estimated GFR calculation using the new CKD EPI creatinine equation without race and so does not require a correction factor for race. This estimated GFR should not be used for calculating drug doses. 04/04/2022 7:22 AM CDT Madelaine Martínez NP LABORATORY Final Re sult [facility] [address] [place] [address], * TACROLIMUS (04/04/2022 7:20 AM CDT) [facility] TACROLIMUS 10.4 mcg/L 04/07/2022 3:29 PM CDT [employer] JASON JACKSON Comment: No definitive therapeutic or toxic ranges have been established. Optimal blood drug levels are influenced by type of transplant, patient response, time post- transplant, co-administration of other drugs, and drug formulation. The following trough range is a suggested guideline: ? 5.0-20.0 mcg/L This test was developed and its analytical performance characteristics have been determined by [employer] [place], [place]. It has not been cleared or approved by the U.S. Food and Drug Administration. This assay has been validated pursuant to the CLIA regulations and is used for clinical purposes. Test Performed by [facility], [facility], [address] [place] [address] Severino Chavez M.D., Ph.D., Director of Laboratories , CLIA [id number] 04/04/2022 7:20 AM CDT Madelaine Martínez NP LABORATORY Final Re sult Performing Organization Address City/[facility]/ZIP Co de Phone Number [employer] [address] , [place] [phone] * (ABNORMAL) GGT, GAMMA GLUTAMYLTRANSFERASE (04/04/2022 7:20 AM CDT) GGT 105(H) 15.0 - 85.0 U/L 04/04/2022 12:43 PM CDT [facility] 04/04/2022 7:20 AM CDT Madelaine Martínez NP LABORATORY Final Re sult [facility] [address] [place] [address], [place] [phone] * (ABNORMAL) CBC W/DIFF AUTOMATED (04/04/2022 7:19 AM CDT) WBC 10.4 4.8 - 10.8 x10'3/uL 04/04/2022 9:29 AM CDT [facility] RBC 4.32(L) 4.50 - 5.90 x10'6/uL 04/04/2022 9:29 AM CDT [facility] HGB 14.8 13.5 - 17.5 G/DL 04/04/2022 9:29 AM CDT [facility] HCT 41.3 41 - 53 % 04/04/2022 9:29 AM CDT [facility] MCV 95.6 80 - 100 FL 04/04/2022 9:29 AM CDT [facility] MCH 34.3(H) 26.0 - 34.0 PG 04/04/2022 9:29 AM CDT [facility] MCHC 35.8 31.0 - 37.0 G/DL 04/04/2022 9:29 AM CDT [facility] RDW 15.1(H) 11.5 - 14.5 % 04/04/2022 9:29 AM CDT [facility] PLT 159 150 - 350 x10'3/uL 04/04/2022 9:29 AM CDT [facility] MPV 10.9(H) 7.0 - 10.4 FL 04/04/2022 9:29 AM CDT [facility] SEG NEUTROPHILS 36(L) 50 - 70 % 11:59 AM CDT [facility] LYMPHOCYTES 38 18 - 42 % 04/04/2022 11:59 AM T [facility] MONOCYTES 24(H) 2 - 11 % 04/04/2022 11:59 AM CDT [facility] EOSINOPHILS 2 1.0 - 3.0 % 04/04/2022 11:59 AM T [facility] ABS. NEUTROPHILS TOTAL 3.74 1.69 - 7.81 x10'3/uL 04/04/2022 11:59 AM CDT [facility] ABS. LYMPHOCYTES 3.95 0.21 - 5.42 x10'3/uL 04/04/2022 11:59 AM CDT [facility] ABS. MONOCYTES 2.50(H) 0.04 - 1.37 x10'3/uL 04/04/2022 11:59 AM CDT [facility] ABS. EOSINOPHILS 0.21 0.00 - 0.68 x10'3/uL 04/04/2022 11:59 AM CDT [facility] PLT MORPH. NORMAL 04/04/2022 11:59 AM CDT [facility] RBC MORPHOLOGY 1+ 04/04/2022 11:59 AM CDT [facility] Comment: ANISOCYTOSIS 1+ POIKILOCYTOSIS 1+ JACQUI CELLS 04/04/2022 7:19 AM CDT Madelaine Martínez FIG BAR 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 LABORATORY Final Re sult [facility] [address] [place] [address], documented in this encounter Visit Diagnoses Diagnosis Transplant, organ- Primary Unspecified organ or tissue replaced by transplant documented in this encounter Care Teams Coin Machine Operator Relationship Specialty Start Date End Date Guero Colunga DO [address] [address] PCP - General INTERNAL MEDICINE 06/16/21 documented as of this encounter
--- OUTSIDE RECORDS SUMMARY | 2024-10-28 06:00 | XMS_ITS | Encounter Summary ---
Author Organization [facility] Address Critical access hospital6 [facility] [place] [address] [place] [address] Care Team Providers Care Java Groovy Developer Name Role Phone Guero Colunga DO Primary Care Provider [phone] Encounter Details Date Type Department Care Team (Late st Contact Info) Description 06/20/2022 9:06 AM CDT - 06/20/2022 9:09 AM CDT Hospital Encounter [facility] [address] [place] [address] Madelaine Martínez, AIDEN 4590 [employer] [address] [place] [address] Discharge Disposition: Home or Self Care (Routine [...] Associated Diagnosis Comments COMPREHENSIVE METABOLIC PANEL Routine 06/20/2022 9:17 AM CDT Liver replaced by transplant (CMS/HCC HHS/HCC) GGT, GAMMA GLUTAMYLTRANSFERASE Routine 06/20/2022 9:17 AM CDT Liver replaced by transplant (CMS/HCC HHS/HCC) TACROLIMUS Routine 06/20/2022 9:17 AM CDT Liver replaced by transplant (CMS/HCC HHS/HCC) CBC W/DIFF AUTOMATED Routine 06/20/2022 9:16 AM CDT Liver replaced by transplant (CMS/HCC HHS/HCC) documented in this encounter Results * TACROLIMUS (06/20/2022 9:17 AM CDT) TACROLIMUS 4.5 mcg/L 06/23/2022 6:29 AM CDT [facility] JASON JACKSON Comment: No definitive therapeutic or toxic ranges have been established. Optimal blood drug levels are influenced by type of transplant, patient response, time post- transplant, co-administration of other drugs, and drug formulation. The following trough range is a suggested guideline: ? 5.0-20.0 mcg/L This test was developed and its analytical performance characteristics have been determined by [facility] [place], [place]. It has not been cleared or approved by the U.S. Food and Drug Administration. This assay has been validated pursuant to the CLIA regulations and is used for clinical purposes. Test Performed by Girish Vazquez, [facility], [address] [place] [address] Severino Chavez M.D., Ph.D., Director of Laboratories , CLIA [id number] 06/20/2022 9:17 AM CDT Madelaine Martínez HISTOPATH TECH LABORATORY Final Re sult [employer] [employer] [address] [place] [address], [place] [phone] * (ABNORMAL) GGT, GAMMA GLUTAMYLTRANSFERASE (06/20/2022 9:17 AM CDT) GGT 122(H) 15.0 - 85.0 U/L 06/21/2022 12:28 PM CDT [facility] 06/20/2022 9:17 AM CDT Madelaine Martínez HISTOPATH TECH LABORATORY Final Re sult Performing Organization Address City/[facility]/ZIP Co de Phone Number [facility] [address] [place] [address], [place] [phone] * (ABNORMAL) COMPREHENSIVE METABOLIC PANEL (06/20/2022 9:17 AM CDT) GLUCOSE 115(H) 70 - 99 MG/DL 06/20/2022 10:31 AM CDT [facility] BUN 15 7 - 18 MG/DL 06/20/2022 10:31 AM CDT [facility] CREATININE S/P/B 1.10 0.7 - 1.3 MG/DL 06/20/2022 10:31 AM CDT [facility] SODIUM S/P/B 143 136 - 145 MMOL/L 06/20/2022 10:31 AM CDT [facility] POTASSIUM S/P/B 4.2 3.5 - 5.1 MMOL/L 06/20/2022 10:31 AM CDT [facility] CHLORIDE S/P/B 111(H) 100 - 108 MMOL/L 06/20/2022 10:31 AM [facility] CO2 23.9 21 - 32 MMOL/L 06/20/2022 10:31 AM [facility] CALCIUM S/P/B 8.7 8.5 - 10.1 MG/DL 06/20/2022 10:31 AM [facility] BILIRUBIN TOTAL S/P/B 2.4(H) 0.2 - 1.2 MG/DL 06/20/2022 10:31 AM [facility] Comment: THIS ASSAY IS NOT RECOMMENDED FOR PATIENTS UNDERGOING TREATMENT WITH ELTROMBOPAG DUE TO THE POTENTIAL FOR FALSELY ELEVATED RESULTS. TOTAL PROTEIN S/P/B 6.1(L) 6.4 - 8.2 G/DL 06/20/2022 10:31 AM [facility] ALBUMIN S/P/B 2.9(L) 3.4 - 5.0 G/DL 06/20/2022 10:31 AM [facility] AST 114(H) 15 - 37 U/L 06/20/2022 10:31 AM [facility] ALT 91(H) 16 - 60 U/L 06/20/2022 10:31 AM [facility] ALKALINE PHOSPHATASE S/P/B 283(H) 50 - 136 U/L 06/20/2022 10:31 AM [facility] ANION GAP 8.1 5 - 15 MMOL/L 06/20/2022 10:31 AM [facility] BUN CREATININE RATIO 13.6 6 - 26 06/20/2022 10:31 AM [facility] A/G RATIO 0.9(L) 1.0 - 2.0 RATIO 06/20/2022 10:31 AM [facility] GFR ESTIMATE >90 >90 ML/MIN/1.7 3 M2 06/20/2022 10:31 AM CDT [facility] Comment: NOTE: eGFR is not calculated for patients <18 years of age. This is an estimated GFR calculation using the new CKD EPI creatinine equation without race and so does not require a correction factor for race. This estimated GFR should not be used for calculating drug doses. 06/20/2022 9:17 AM CDT Madelaine Martínez HISTOPATH TECH LABORATORY Final Re sult [facility] [address] [place] [address], [place] [phone] * (ABNORMAL) CBC W/DIFF AUTOMATED (06/20/2022 9:16 AM CDT) WBC 12.1(H) 4.8 - 10.8 x10'3/uL 06/20/2022 9:39 AM CDT [facility] RBC 3.44(L) 4.50 - 5.90 x10'6/uL 06/20/2022 9:39 AM CDT [facility] HGB 12.1(L) 13.5 - 17.5 G/DL 06/20/2022 9:39 AM CDT [facility] HCT 35.2(L) 41 - 53 % 06/20/2022 9:39 AM CDT [facility] MCV 102.3(H) 80 - 100 FL 06/20/2022 9:39 AM CDT [facility] MCH 35.2(H) 26.0 - 34.0 PG 06/20/2022 9:39 AM CDT [facility] MCHC 34.4 31.0 - 37.0 G/DL 06/20/2022 9:39 AM CDT [facility] RDW 17.0(H) 11.5 - 14.5 % 06/20/2022 9:39 AM CDT [facility] PLT 177 150 - 350 x10'3/uL 06/20/2022 9:39 AM CDT [facility] MPV 10.7(H) 7.0 - 10.4 FL 06/20/2022 9:39 AM CDT [facility] SEG NEUTROPHILS 33(L) 50 - 70 % 10:58 AM CDT [facility] LYMPHOCYTES 38 18 - 42 % 06/20/2022 10:58 AM CDT [facility] MONOCYTES 11 2 - 11 % 06/20/2022 10:58 AM CDT [facility] EOSINOPHILS 18(H) 1.0 - 3.0 % 06/20/2022 10:58 AM CDT [facility] ABS. NEUTROPHILS TOTAL 3.99 1.69 - 7.81 x10'3/uL 06/20/2022 10:58 AM CDT [facility] ABS. LYMPHOCYTES 4.60 0.21 - 5.42 x10'3/uL 06/20/2022 10:58 AM T [facility] ABS. MONOCYTES 1.33 0.04 - 1.37 x10'3/uL 06/20/2022 10:58 AM CDT [facility] ABS. EOSINOPHILS 2.18(H) 0.00 - 0.68 x10'3/uL 06/20/2022 10:58 AM CDT [facility] PLT MORPH. NORMAL 06/20/2022 10:58 AM CDT [facility] RBC MORPHOLOGY 2+ 06/20/2022 10:58 AM CDT [facility] Comment: ANISOCYTOSIS 1+ POIKILOCYTOSIS 06/20/2022 9:16 AM CDT Madelaine Martínez HISTOPATH TECH LABORATORY Final Re sult [facility] [address] [place] [address], documented in this encounter Visit Diagnoses Diagnosis Liver replaced by transplant (CMS/HCC HHS/HCC) Liver replaced by transplant documented in this encounter Care Teams Java Groovy Developer Relationship Specialty Start Date End Date Guero Colunga DO [address] [place] [address] PCP - General INTERNAL MEDICINE 06/16/21 documented as of this encounter
--- OUTSIDE RECORDS SUMMARY | 2024-10-28 06:00 | XMS_ITS | Encounter Summary ---
Author Organization [facility] Address [facility] [place] [address] [place] [address] Care Team Providers Care Case Work Aide Name Role Phone Guero Colunga DO Primary Care Provider [phone] Encounter Details Date Type Department Care Team (Late st Contact Info) Description 05/09/2022 6:57 AM CDT - 05/09/2022 11:59 PM CDT Hospital Encounter [facility] [address] [place] [address] Madelaine Martínez, AIDEN [address] [address] Discharge Disposition: Home or Self Care (Routine [...] suspected to have Coronavirus/COVID-19? No / Unsure 05/09/2022 6:57 AM CDT documented as of this encounter Medications at Time of Discharge tacrolimus 0.5 MG capsule Take 0.5 mg by mouth 2 (two) times daily. ursodiol 300 MG capsule Take 600 mg by mouth daily. 10/02/2021 documented as of this encounter Plan of Treatment Not on file documented as of this encounter Procedures Procedure Name Priority Date/Time Associated Diagnosis Comments TACROLIMUS Routine 05/09/2022 7:04 AM CDT Liver replaced by transplant (CMS/HCC HHS/HCC) GGT, GAMMA GLUTAMYLTRANSFERASE Routine 05/09/2022 7:03 AM CDT Liver replaced by transplant (CMS/HCC HHS/HCC) COMPREHENSIVE METABOLIC PANEL Routine 05/09/2022 7:02 AM CDT Liver replaced by transplant (CMS/HCC HHS/HCC) CBC W/DIFF AUTOMATED Routine 05/09/2022 7:02 AM CDT Liver replaced by transplant (CMS/HCC HHS/HCC) documented in this encounter Results * TACROLIMUS (05/09/2022 7:04 AM CDT) TACROLIMUS 9.0 mcg/L 05/12/2022 5:04 PM CDT [employer] JASON JACKSON Comment: No definitive therapeutic or toxic ranges have been established. Optimal blood drug levels are influenced by type of transplant, patient response, time post- transplant, co-administration of other drugs, and drug formulation. The following trough range is a suggested guideline: ? 5.0-20.0 mcg/L This test was developed and its analytical performance characteristics have been determined by [facility] [place], [place]. It has not been cleared or approved by the U.S. Food and Drug Administration. This assay has been validated pursuant to the CLIA regulations and is used for clinical purposes. Test Performed by [employer] [facility], [employer] [facility] [place], [address] [place] [address] Severino Chavez M.D., Ph.D., Director of Laboratories , CLIA [id number] 05/09/2022 7:04 AM CDT Madelaine Martínez FILTER PRESS TENDER LABORATORY Final Re sult [employer] [address] [place] [address], [place] [phone] * (ABNORMAL) GGT, GAMMA GLUTAMYLTRANSFERASE (05/09/2022 7:03 AM CDT) GGT 154(H) 15.0 - 85.0 U/L 05/09/2022 1:49 PM CDT [facility] 05/09/2022 7:03 AM CDT Madelaine Martínez FILTER PRESS TENDER LABORATORY Final Re sult Performing Organization Address City/[facility]/ZIP Co de Phone Number [facility] [address] [place] [address], [place] [phone] * (ABNORMAL) COMPREHENSIVE METABOLIC PANEL (05/09/2022 7:02 AM CDT) GLUCOSE 90 70 - 99 MG/DL 05/09/2022 7:39 AM CDT [facility] BUN 25(H) 7 - 18 MG/DL 05/09/2022 7:39 AM CDT [facility] CREATININE S/P/B 1.10 0.7 - 1.3 MG/DL 05/09/2022 7:39 AM CDT [facility] SODIUM S/P/B 141 136 - 145 MMOL/L 05/09/2022 7:39 AM CDT [facility] POTASSIUM S/P/B 4.5 3.5 - 5.1 MMOL/L 05/09/2022 7:39 AM CDT [facility] CHLORIDE S/P/B 109(H) 100 - 108 MMOL/L 05/09/2022 7:39 AM [facility] CO2 24.0 21 - 32 MMOL/L 05/09/2022 7:39 AM [facility] CALCIUM S/P/B 8.7 8.5 - 10.1 MG/DL 05/09/2022 7:39 AM [facility] BILIRUBIN TOTAL S/P/B 2.5(H) 0.2 - 1.2 MG/DL 05/09/2022 7:39 AM [facility] Comment: THIS ASSAY IS NOT RECOMMENDED FOR PATIENTS UNDERGOING TREATMENT WITH ELTROMBOPAG DUE TO THE POTENTIAL FOR FALSELY ELEVATED RESULTS. TOTAL PROTEIN S/P/B 6.2(L) 6.4 - 8.2 G/DL 05/09/2022 7:39 AM [facility] ALBUMIN S/P/B 3.2(L) 3.4 - 5.0 G/DL 05/09/2022 7:39 AM [facility] AST 105(H) 15 - 37 U/L 05/09/2022 7:39 AM [facility] ALT 88(H) 16 - 60 U/L 05/09/2022 7:39 AM [facility] ALKALINE PHOSPHATASE S/P/B 308(H) 50 - 136 U/L 05/09/2022 7:39 AM [facility] ANION GAP 8.0 5 - 15 MMOL/L 05/09/2022 7:39 AM [facility] BUN CREATININE RATIO 22.7 6 - 26 05/09/2022 7:39 AM [facility] A/G RATIO 1.1 1.0 - 2.0 RATIO 05/09/2022 7:39 AM [facility] GFR ESTIMATE >90 >90 ML/MIN/1.7 3 M2 05/09/2022 7:39 AM CDT [facility] Comment: NOTE: eGFR is not calculated for patients <18 years of age. This is an estimated GFR calculation using the new CKD EPI creatinine equation without race and so does not require a correction factor for race. This estimated GFR should not be used for calculating drug doses. 05/09/2022 7:02 AM CDT Madelaine Martínez NP LABORATORY Final Re sult [facility] [address] [place] [address], [place] [phone] * (ABNORMAL) CBC W/DIFF AUTOMATED (05/09/2022 7:02 AM CDT) WBC 9.5 4.8 - 10.8 x10'3/uL 05/09/2022 8:07 AM CDT [facility] RBC 3.65(L) 4.50 - 5.90 x10'6/uL 05/09/2022 8:07 AM CDT [facility] HGB 12.5(L) 13.5 - 17.5 G/DL 05/09/2022 8:07 AM CDT [facility] HCT 35.7(L) 41 - 53 % 05/09/2022 8:07 AM CDT [facility] MCV 97.8 80 - 100 FL 05/09/2022 8:07 AM CDT [facility] MCH 34.2(H) 26.0 - 34.0 PG 05/09/2022 8:07 AM CDT [facility] MCHC 35.0 31.0 - 37.0 G/DL 05/09/2022 8:07 AM CDT [facility] RDW 19.1(H) 11.5 - 14.5 % 05/09/2022 8:07 AM CDT [facility] PLT 190 150 - 350 x10'3/uL 05/09/2022 8:07 AM T [facility] MPV 11.4(H) 7.0 - 10.4 FL 05/09/2022 8:07 AM CDT [facility] SEG NEUTROPHILS 26(L) 50 - 70 % 8:26 AM T [facility] LYMPHOCYTES 49(H) 18 - 42 % 05/09/2022 8:26 AM T [facility] MONOCYTES 19(H) 2 - 11 % 05/09/2022 8:26 AM T [facility] EOSINOPHILS 6(H) 1.0 - 3.0 % 05/09/2022 8:26 AM T [facility] ABS. NEUTROPHILS TOTAL 2.47 1.69 - 7.81 x10'3/uL 05/09/2022 8:26 AM T [facility] ABS. LYMPHOCYTES 4.65 0.21 - 5.42 x10'3/uL 05/09/2022 8:26 AM T [facility] ABS. MONOCYTES 1.81(H) 0.04 - 1.37 x10'3/uL 05/09/2022 8:26 AM T [facility] ABS. EOSINOPHILS 0.57 0.00 - 0.68 x10'3/uL 05/09/2022 8:26 AM T [facility] PLT MORPH. NORMAL 05/09/2022 8:26 AM T [facility] RBC MORPHOLOGY 1+ 05/09/2022 8:26 AM T [facility] Comment: ANISOCYTOSIS 1+ POIKILOCYTOSIS 1+ JACQUI CELLS 1+ [employer] CE[employer] 05/09/2022 7:02 AM CDT Madelaine Martínez FILTER PRESS TENDER LABORATORY Final Re sult [facility] [address] [place] [address], documented in this encounter Visit Diagnoses Diagnosis Liver replaced by transplant (CMS/HCC HHS/HCC) Liver replaced by transplant documented in this encounter Care Teams Case Work Aide Relationship Specialty Start Date End Date Guero Colunga DO [address] [address] PCP - General INTERNAL MEDICINE 06/16/21 documented as of this encounter
--- OUTSIDE RECORDS SUMMARY | 2024-10-28 06:00 | XMS_ITS | Encounter Summary ---
Author Organization [facility] Address [facility]. [place], [place] [address] [place] [address] Care Team Providers Care Piper Helper Name Role Phone Guero Colunga DO Primary Care Provider [phone] Encounter Details Date Type Department Care Team (Latest Contact Info) Description 05/09/2022 Travel Social History Tobacco Use Types Packs/Day [...] on filedocumented in this encounter Care Teams Piper Helper Relationship Specialty Start Date End Date Guero Colunga DO 20[address] [facility] [address] [place] [address] PCP - General INTERNAL MEDICINE 06/16/21 documented as of this encounter
--- OUTSIDE RECORDS SUMMARY | 2024-10-28 06:00 | XMS_ITS | Encounter Summary ---
Author Organization [facility] Address [address] [place] [address]. [place] [address] [place] [address] Care Team Providers Care Rope Silica Machine Operator Name Role Phone Guero Colunga DO Primary Care Provider [phone] Encounter Details Date Type Department Care Team (Late st Contact Info) Description 11/14/2022 8:38 AM [facility] Hospital Encounter [facility] [address] [place] [address] Jil Duncan MD 1 [facility] DIV IM [place] [address] Discharge Disposition: Home or Self Care (Routine [...] Coronavirus/COVID-19? No / Unsure 11/14/2022 8:36 AM [facility] documented as of this encounter Medications at [...] REAL TIME PCR Routine 11/14/2022 9:30 AM [facility] Cytomegaloviral disease (CMS/HCC HHS/HCC) COMPREHENSIVE METABOLIC PANEL Routine 11/14/2022 9:30 AM [facility] Liver replaced by transplant (CMS/HCC HHS/HCC) CBC, AUTO, NO DIFF Routine 11/14/2022 9: 30 AM [facility] Liver replaced by transplant (CMS/HCC HHS/HCC) GGT, GAMMA GLUTAMYLTRANSFERASE Routine 11/14/2022 9:30 AM [facility] Liver replaced by transplant (CMS/HCC HHS/HCC) TACROLIMUS Routine 11/14/2022 9:30 AM [facility] Liver replaced by transplant (CMS/HCC HHS/HCC) documented in this encounter Results * (ABNORMAL) CMV DNA QUANT REAL TIME PCR (11/14/2022 9:30 AM [facility]) SPECIMEN SOURCE BLOOD 10:01 AM [facility] CMV DNA QN PCR (BLD) 10,786( ) IU/mL 11/17/2022 12:39 PM [facility] [employer] [facility] CMV DNA QUANT PCR (BLD) 4.03(H) log IU/mL 11/17/2022 12:39 PM [facility] [employer] [facility] Comment: REFERENCE RANGE: NOT DETECTED This test was developed and its analytical performance characteristics have been determined by [employer] [place], [place]. It has not been cleared or approved by the U.S. Food and Drug Administration. This assay has been validated pursuant to the CLIA regulations and is used for clinical purposes. For additional information, please refer to http://education.WeYAP.Brandcast/faq/CMVandEBVPCR (This link is being provided for informational/ educational purposes only.) Test Performed by [facility], [employer] [place], [address] [place] [address] Severino Chavez M.D., Ph.D., Director of Laboratories , CLIA [id number] 11/14/2022 9:30 AM [facility] Jil Duncan MD LABORATORY Final Result Performing Organization Address [facility]/ZIP Co de Phone Number [facility] [address] [place], [place] , [place] [phone] [facility] [address] [place] [address], [place] [phone] * TACROLIMUS (11/14/2022 9:30 AM [facility]) [facility] TACROLIMUS 2.9 mcg/L 11/18/2022 5:01 PM [facility] [employer] JASON RENETTA Comment: No definitive therapeutic or toxic ranges have been established. Optimal blood drug levels are influenced by type of transplant, patient response, time post- transplant, co-administration of other drugs, and drug formulation. The following trough range is a suggested guideline: ? 5.0-20.0 mcg/L This test was developed and its analytical performance characteristics have been determined by [employer] [place], [place]. It has not been cleared or approved by the U.S. Food and Drug Administration. This assay has been validated pursuant to the CLIA regulations and is used for clinical purposes. Test Performed by [facility], [employer] [place], [address] [place], [place] Severino Chavez M.D., Ph.D., Director of Laboratories , CLIA [id number] 11/14/2022 9:30 AM [facility] Madelaine Martínez NP LABORATORY Final Re sult Performing Organization Address [facility]/ZIP Co de Phone Number [employer]-[address] , [place] [phone] * (ABNORMAL) GGT, GAMMA GLUTAMYLTRANSFERASE (11/14/2022 9:30 AM [facility]) Pathologist [facility] GGT 123(H) 15.0 - 85.0 U/L 11/14/2022 1:31 PM [facility] 11/14/2022 9:30 AM [facility] Madelaine Martínez DYE HOUSE WHEEL OPERATOR LABORATORY Final Re sult [facility] [address] [place] [address], [place] [phone] * (ABNORMAL) COMPREHENSIVE METABOLIC PANEL (11/14/2022 9:30 AM [facility]) [facility] GLUCOSE 92 70 - 99 MG/DL 11/14/2022 10:20 AM [facility] BUN 9 7 - 18 MG/DL 11/14/2022 10:20 AM [facility] CREATININE S/P/B 0.71 0.7 - 1.3 MG/DL 11/14/2022 10:20 AM [facility] SODIUM S/P/B 142 136 - 145 MMOL/L 11/14/2022 10:20 AM [facility] POTASSIUM S/P/B 4.2 3.5 - 5.1 MMOL/L 11/14/2022 10:20 AM [facility] CHLORIDE S/P/B 110(H) 100 - 108 MMOL/L 11/14/2022 10:20 AM [facility] CO2 24.8 21 - 32 MMOL/L 11/14/2022 10:20 AM [facility] CALCIUM S/P/B 8.6 8.5 - 10.1 MG/DL 11/14/2022 10:20 AM [facility] BILIRUBIN TOTAL S/P/B 1.2 0.2 - 1.2 MG/DL 11/14/2022 10:20 AM [facility] TOTAL PROTEIN S/P/B 5.8(L) 6.4 - 8.2 G/DL 11/14/2022 10:20 AM [facility] ALBUMIN S/P/B 3.0(L) 3.4 - 5.0 G/DL 11/14/2022 10:20 AM [facility] AST 65(H) 15 - 37 U/L 11/14/2022 10:20 AM [facility] ALT 51 16 - 60 U/L 11/14/2022 10:20 AM [facility] ALKALINE PHOSPHATASE S/P/B 297(H) 50 - 136 U/L 11/14/2022 10:20 AM [facility] ANION GAP 7.2 5 - 15 MMOL/L 11/14/2022 10:20 AM [facility] BUN CREATININE RATIO 12.7 6 - 26 11/14/2022 10:20 AM [facility] A/G RATIO 1.1 1.0 - 2.0 RATIO 11/14/2022 10:20 AM [facility] GFR ESTIMATE >90 >90 ML/MIN/1.7 3 M2 11/14/2022 10:20 AM [facility] Comment: NOTE: eGFR is not calculated for patients <18 years of age. This is an estimated GFR calculation using the new CKD EPI creatinine equation without race and so does not require a correction factor for race. This estimated GFR should not be used for calculating drug doses. 11/14/2022 9:30 AM [facility] Madelaine Martínez DYE HOUSE WHEEL OPERATOR LABORATORY Final Re sult [facility] [address] [place] [address], * (ABNORMAL) CBC, AUTO, NO DIFF (11/14/2022 9:30 AM [facility]) WBC 6.66 4.4 - 11.0 x10'3/uL 11/14/2022 10:05 AM [facility] RBC 4.16(L) 4.50 - 5.90 x10'6/uL 11/14/2022 10:05 AM [facility] HGB 14.7 14.0 - 17.5 G/DL 11/14/2022 10:05 AM [facility] HCT 41.3(L) 41.5 - 50.4 % 11/14/2022 10:05 AM [facility] MCV 99.3(H) 80.0 - 96.0 FL 11/14/2022 10:05 AM [facility] MCH 35.3(H) 26.5 - 31.4 PG 11/14/2022 10:05 AM [facility] MCHC 35.6(H) 31.9 - 34.8 G/DL 11/14/2022 10:05 AM [facility] RDW 15.0(H) 12.3 - 14.3 % 11/14/2022 10:05 AM [facility] PLT 195 151 - 353 x10'3/uL 11/14/2022 10:05 AM [facility] MPV 11.2 9.7 - 11.9 FL 11/14/2022 10:05 AM [facility] 11/14/2022 9:30 AM [facility] Madealine Martínez DYE HOUSE WHEEL OPERATOR LABORATORY Final Re sult [facility] [address] [place] [address], documented in this encounter Visit Diagnoses Diagnosis Liver replaced by transplant (CMS/HCC HHS/HCC) Liver replaced by transplant Cytomegaloviral disease (CMS/HCC HHS/HCC) Cytomegaloviral disease documented in this encounter Care Teams Rope Silica Machine Operator Relationship Specialty Start Date End Date Guero Colunga DO [address] [address] PCP - General INTERNAL MEDICINE 06/16/21 documented as of this encounter
--- OUTSIDE RECORDS SUMMARY | 2024-10-28 06:00 | XMS_ITS | Encounter Summary ---
Author Organization [facility] Address [facility] [place] [address] [place] [address] Care Team Providers Care Police Surgeon Name Role Phone Guero Colunga DO Primary Care Provider [phone] Encounter Details Date Type Department Care Team (Late st Contact Info) Description 07/18/2022 Orders Only [facility] [address] [place] [address] Jil Duncan MD 1 [facility] DIV [place] [address] Social History Tobacco Use Types Packs/Day Years [...] as of this encounter Visit Diagnoses Diagnosis Cytomegaloviral disease (CMS/HCC HHS/HCC)- Primary Cytomegaloviral disease documented in this encounter Care Teams Police Surgeon Relationship Specialty Start Date End Date Guero Colunga DO [address] [facility] [address] [place] [address] PCP - General INTERNAL MEDICINE 06/16/21 documented as of this encounter
--- OUTSIDE RECORDS SUMMARY | 2024-10-28 06:00 | XMS_ITS | Encounter Summary ---
Author Organization [facility] Address [address] [place] [address]. [place] [address] [place] [address] Care Team Providers Care Freight Caller Name Role Phone Guero Colunga DO Primary Care Provider [phone] Encounter Details Date Type Department Care Team (Late st Contact Info) Description 04/17/2022 Orders Only [facility] [address] [place] [address] Jil Duncan MD 1 [facility] DIV [place] [address] Social History Tobacco Use Types Packs/Day Years [...] (ABNORMAL) CMV DNA QUANT REAL TIME PCR (04/17/2022 7:43 AM CDT) SPECIMEN SOURCE SERUM 7:44 AM CDT [facility] CMV DNA QN PCR (BLD) 340(HH) IU/mL 04/20/2022 10:49 AM CDT [facility] LY CMV DNA QUANT PCR (BLD) 2.53(H) log IU/mL 04/20/2022 10:49 AM CDT [facility] Comment: REFERENCE RANGE: NOT DETECTED This test was developed and its analytical performance characteristics have been determined by [place]. It has not been cleared or approved by the U.S. Food and Drug Administration. This assay has been validated pursuant to the CLIA regulations and is used for clinical purposes. For additional information, please refer to http://education.Paracosm.TreatFeed/faq/CMVandEBVPCR (This link is being provided for informational/ educational purposes only.) Test Performed by [employer], [employer] [facility], [address] [place] [address] Severino Chavez M.D., Ph.D., Director of Laboratories , CLIA [id number] 04/17/2022 7:43 AM CDT us Jil Duncan MD LABORATORY Final Result [facility] [address] , [place] [phone] [facility] [address] [place] [address], [place] [phone] documented in this encounter Visit Diagnoses Diagnosis Cytomegaloviral disease (CMS/HCC [facility])- Primary Cytomegaloviral disease documented in this encounter Care Teams Freight Caller Relationship Specialty Start Date End Date Guero Colunga DO [address] [address] PCP - General INTERNAL MEDICINE 06/16/21 documented as of this encounter
--- OUTSIDE RECORDS SUMMARY | 2024-10-28 06:00 | XMS_ITS | Encounter Summary ---
Author Organization [facility] Address [address] [place] [address]. [place] [address] [place] [address] Care Team Providers Care Inside Sales Advisor Name Role Phone Guero Colunga DO Primary Care Provider [phone] Encounter Details Date Type Department Care Team (Late st Contact Info) Description 06/20/2022 9:10 AM CDT - 06/20/2022 11:59 PM CDT Hospital Encounter [facility] [address] [place] [address] Jil Duncan MD [facility] DIV [place] [address] Discharge Disposition: Home or Self Care (Routine [...] CMV DNA QUANT REAL TIME PCR Routine 06/20/2022 9:17 AM CDT Liver replaced by transplant (CMS/HCC HHS/HCC) documented in this encounter Results * (ABNORMAL) CMV DNA QUANT REAL TIME PCR (06/20/2022 9:17 AM CDT) SPECIMEN SOURCE BLOOD 9:19 AM CDT [facility] CMV DNA QN PCR (BLD) 18,358(HH ) IU/mL 06/22/2022 9:27 AM CDT [facility] LY CMV DNA QUANT PCR (BLD) 4.26(H) log IU/mL 06/22/2022 9:27 AM CDT [facility]IL LY Comment: REFERENCE RANGE: NOT DETECTED This test was developed and its analytical performance characteristics have been determined by [employer] [place], [place]. It has not been cleared or approved by the U.S. Food and Drug Administration. This assay has been validated pursuant to the CLIA regulations and is used for clinical purposes. For additional information, please refer to http://education.tradeNOW/faq/CMVandEBVPCR (This link is being provided for informational/ educational purposes only.) Test Performed by [employer] [place], [employer] [place], [address] [place], [place] Severino Chavez M.D., Ph.D., Director of Laboratories , CLIA [id number] 06/20/2022 9:17 AM CDT us Jil Duncan MD LABORATORY Final Result [facility] [address] [place], [place] , [facility] [address] [place], [place] [address] [phone] documented in this encounter Visit Diagnoses Diagnosis Liver replaced by transplant (CMS/HCC HHS/HCC) Liver replaced by transplant documented in this encounter Care Teams Inside Sales Advisor Relationship Specialty Start Date End Date Guero Colunga DO [address] [address] PCP - General INTERNAL MEDICINE 06/16/21 documented as of this encounter
--- OUTSIDE RECORDS SUMMARY | 2024-10-28 06:00 | XMS_ITS | Encounter Summary ---
Author Organization [facility] Address [facility] [place] [address] [place] [address] Care Team Providers Care Independent Contractor Name Role Phone Guero Colunga Primary Care Provider [phone] Reason for Visit * Reason Comments Suture Removal Encounter Details Date Type Department Care Team (Late st Contact Info) Description 04/11/2022 7:19 AM CDT - 04/11/2022 7:43 AM CDT Emergency [facility] Room [address] [place] [address] Suture Removal Discharge Disposition: Home or Self Care (Routine [...] Recorded In the last 10 days, have tasia u been in contact with someone who [...] Mass Index 21.29 04/11/2022 7:20 AM CDT documented in this encounter Discharge Instructions * Discharge Instructions* Sharron Michel MD - 04/11/2022 7:35 AM CDT Steristrips were applied to your wound. You may shower. Avoid soaking wound this week. Avoid exposure to marsh or river water for the next week. The strips will fall off within the next weeks. You may then apply vaseline or other ointment to wound while it continues to heal. If there is any sign of infection, recheck with your doc or return to the ER. * Attachments The following attachments cannot be sent through Care Everywhere. * Stitches Removal (French) documented in this encounter Medications at Time of Discharge tacrolimus 0.5 MG capsule Take 0.5 mg by mouth 2 (two) times daily. ursodiol 300 MG capsule Take 600 mg by mouth daily. 10/02/2021 documented as of this encounter ED Notes * Tosha Calvo RN - 04/11/2022 7:42 AM CDT Discharged home with instructions * Sharron Michel MD - 04/11/2022 7:23 AM CDT 0.ED NOTE Chief Complaint Chief Complaint Patient presents with ??? Suture Removal History of Present Illness Beka Nichols is a 27-year-old male who presents today for evaluation of suture removal on right anterior forearm. Pt sustained laceration on 04/05 and was repaired by Dr. Lara at [facility] ER. No complications. Healing well. No increased redness, swelling, pus or pain. Medical History PAST MEDICAL HISTORY: Past Medical History: Diagnosis Date ??? Liver transplanted (CMS/HCC) ??? Non Hodgkin's lymphoma (CMS/HCC) ??? Platelet disorder (CMS/HCC) PAST SURGICAL HISTORY: Past Surgical History: Procedure Laterality Date ??? REMOVAL SPLEEN, TOTAL FAMILY HISTORY: No family history on file. MEDICATIONS: Prior to Admission medications Medication Sig Start Date End Date Taking? Authorizing Provider tacrolimus 0.5 MG capsule Take 0.5 mg by mouth 2 (two) times daily. Yes Doc Abstract ursodiol 300 MG capsule Take 600 mg by mouth daily. 10/02/21 Yes Doc Abstract ALLERGIES: No Known Allergies SOCIAL HISTORY: Social History Tobacco Use ??? Smoking status: Former Smoker ??? Smokeless tobacco: Current User Vaping Use ??? Vaping Use: Never used Substance Use Topics ??? Alcohol use: Yes Comment: socially ??? Drug use: Never Review of Systems Review of Systems Constitutional: Negative. Musculoskeletal: Negative. Skin: Right forearm wound well healing Physical Exam Filed Vitals: 04/11/22 0720 BP: 121/68 Pulse: 74 Resp: 16 Temp: 98.6 ??F (37 ??C) TempSrc: Temporal SpO2: 97% Weight: 63.5 kg (140 lb) Height: 5' 8 (1.727 m) ED Triage Vitals [04/11/22 0720] Enc Vitals Group BP 121/68 Pulse 74 Resp 16 Temp 98.6 ??F (37 ??C) Temp src Temporal SpO2 97 % Weight 140 lb (63.5 kg) Height 5' 8 (1.727 m) Head Circumference Peak Flow Pain Score Pain Loc Pain Edu? Excl. in GC? Physical Exam Vitals and nursing note reviewed. Constitutional: General: He is not in acute distress. Appearance: Normal appearance. Musculoskeletal: Comments: Right upper extremity: Full rom, nv intact, mid anterior forearm laceration well healed without erythema or induration. Minimal gaping.Nontender. NV intact. Neurological: General: No focal deficit present. Mental Status: He is alert and oriented to person, place, and time. Psychiatric: Mood and Affect: Mood normal. Behavior: Behavior normal. Thought Content: Thought content normal. Judgment: Judgment normal. Diagnostic Studies / Procedures ELECTROCARDIOGRAMS: No results found for this visit on 04/11/22. LABORATORY STUDIES: No results found for this visit on 04/11/22. IMAGING STUDIES No orders to display ED Course / Medical Decision Making MDM Number of Diagnoses or Management Options Encounter for removal of sutures Diagnosis management comments: 27 year old male presents for suture removal from right forearm laceration. Well healed with slight gaping at medial aspect of wound. Sutures removed without complication. Steristrips applied. No complications. Wound care reviewed. Medications - No data to display Clinical Impression Encounter for removal of sutures (Primary) Disposition: Discharge Discharge Medication List as of 04/11/2022 7:38 AM Follow-up: Guero Colunga DO [address] [address] As needed Sharron Michel MD 04/11/2022 08:11 Sharron Michel MD 04/11/22 0811 * Tosha Calvo RN - 04/11/2022 7:22 AM CDT Pt here for suture removal to the right forearm area looks good no signs of infection documented in this encounter Plan of Treatment Not on file documented as of this encounter Visit Diagnoses Diagnosis Encounter for removal of sutures- Primary documented in this encounter Care Teams Independent Contractor Relationship Specialty Start Date End Date Guero Colunga DO [address] [address] PCP - General INTERNAL MEDICINE 06/16/21 documented as of this encounter
--- OUTSIDE RECORDS SUMMARY | 2024-10-28 06:00 | XMS_ITS | Encounter Summary ---
Author Organization [facility] Address [facility] [facility] [place] [address] [place] [address] Care Team Providers Care Heel Builder Machine Name Role Phone Guero Colunga DO Primary Care Provider Encounter Details Date Type Department Care Team (Late st Contact Info) Description 05/16/2022 Orders Only [facility] [address] [place] [address] Madelaine Martínez, AIDEN 4590 [facility] [address] [place] [address] Social History Tobacco Use Types Packs/Day Years [...] as of this encounter Results * TACROLIMUS (05/16/2022 7:24 AM CDT) TACROLIMUS 7.9 mcg/L 05/20/2022 2:55 PM CDT Cognitive Code JASON JACKSON Comment: No definitive therapeutic or toxic ranges have been established. Optimal blood drug levels are influenced by type of transplant, patient response, time post- transplant, co-administration of other drugs, and drug formulation. The following trough range is a suggested guideline: ? 5.0-20.0 mcg/L This test was developed and its analytical performance characteristics have been determined by [facility] [place], [place]. It has not been cleared or approved by the U.S. Food and Drug Administration. This assay has been validated pursuant to the CLIA regulations and is used for clinical purposes. Test Performed by [facility], [facility], [address] [place], [place] Severino Chavez M.D., Ph.D., Director of Laboratories , CLIA [id number] 05/16/2022 7:24 AM CDT Madelaine Martínez FIRE CONTROL TECHNICIAN G LABORATORY Final Re sult Performing Organization Address City/[facility]/ZIP Co de Phone Number Cognitive Code [place] [id number] [place], [place] , [place] [phone] * (ABNORMAL) GGT, GAMMA GLUTAMYLTRANSFERASE (05/16/2022 7:24 AM CDT) Pathologist [facility] GGT 184(H) 15.0 - 85.0 U/L 05/17/2022 12:[address] [facility] 05/16/2022 7:24 AM CDT Madelaine Martínez FIRE CONTROL TECHNICIAN G LABORATORY Final Re sult Performing Organization Address City/[facility]/ZIP Co de Phone Number [facility] [address] [place] [address], [place] [phone] * (ABNORMAL) COMPREHENSIVE METABOLIC PANEL (05/16/2022 7:24 AM CDT) [facility] GLUCOSE 92 70 - 99 MG/DL 05/16/2022 9:26 AM T [facility] BUN 22(H) 7 - 18 MG/DL 05/16/2022 9:26 AM [facility] CREATININE S/P/B 1.20 0.7 - 1.3 MG/DL 05/16/2022 9:26 AM T [facility] SODIUM S/P/B 142 136 - 145 MMOL/L 05/16/2022 9:26 AM [facility] POTASSIUM S/P/B 4.5 3.5 - 5.1 MMOL/L 05/16/2022 9:26 AM [facility] CHLORIDE S/P/B 110(H) 100 - 108 MMOL/L 05/16/2022 9:26 AM [facility] CO2 24.4 21 - 32 MMOL/L 05/16/2022 9:26 AM [facility] CALCIUM S/P/B 8.2(L) 8.5 - 10.1 MG/DL 05/16/2022 9:26 AM [facility] BILIRUBIN TOTAL S/P/B 1.7(H) 0.2 - 1.2 MG/DL 05/16/2022 9:26 AM [facility] Comment: THIS ASSAY IS NOT RECOMMENDED FOR PATIENTS UNDERGOING TREATMENT WITH ELTROMBOPAG DUE TO THE POTENTIAL FOR FALSELY ELEVATED RESULTS. TOTAL PROTEIN S/P/B 5.8(L) 6.4 - 8.2 G/DL 05/16/2022 9:26 AM [facility] ALBUMIN S/P/B 3.0(L) 3.4 - 5.0 G/DL 05/16/2022 9:26 AM [facility] AST 102(H) 15 - 37 U/L 05/16/2022 9:26 AM CDT [facility] ALT 96(H) 16 - 60 U/L 05/16/2022 9:26 AM T [facility] ALKALINE PHOSPHATASE S/P/B 322(H) 50 - 136 U/L 05/16/2022 9:26 AM CDT [facility] ANION GAP 7.6 5 - 15 MMOL/L 05/16/2022 9:26 AM T [facility] BUN CREATININE RATIO 18.3 6 - 26 05/16/2022 9:26 AM T [facility] A/G RATIO 1.1 1.0 - 2.0 RATIO 05/16/2022 9:26 AM T [facility] GFR ESTIMATE 84(L) >90 ML/MIN/1.7 3 M2 05/16/2022 9:26 AM T [facility] Comment: NOTE: eGFR is not calculated for patients <18 years of age. This is an estimated GFR calculation using the new CKD EPI creatinine equation without race and so does not require a correction factor for race. This estimated GFR should not be used for calculating drug doses. 05/16/2022 7:24 AM CDT Madelaine Martínez NP LABORATORY Final Re sult [facility] [address] [place] [address], * (ABNORMAL) CBC W/DIFF AUTOMATED (05/16/2022 7:24 AM CDT) WBC 8.3 4.8 - 10.8 x10'3/uL 05/16/2022 8:33 AM CDT [facility] RBC 3.71(L) 4.50 - 5.90 x10'6/uL 05/16/2022 8:33 AM CDT [facility] HGB 12.5(L) 13.5 - 17.5 G/DL 05/16/2022 8:33 AM CDT [facility] HCT 37.0(L) 41 - 53 % 05/16/2022 8:33 AM CDT [facility] MCV 99.7 80 - 100 FL 05/16/2022 8:33 AM CDT [facility] MCH 33.7 26.0 - 34.0 PG 05/16/2022 8:33 AM CDT [facility] MCHC 33.8 31.0 - 37.0 G/DL 05/16/2022 8:33 AM CDT [facility] RDW 19.4(H) 11.5 - 14.5 % 05/16/2022 8:33 AM CDT [facility] PLT 180 150 - 350 x10'3/uL 05/16/2022 8:33 AM CDT [facility] MPV 11.7(H) 7.0 - 10.4 FL 05/16/2022 8:33 AM CDT [facility] SEG NEUTROPHILS 28(L) 50 - 70 % 11:43 AM CDT [facility] LYMPHOCYTES 48(H) 18 - 42 % 05/16/2022 11:43 AM CDT [facility] MONOCYTES 18(H) 2 - 11 % 05/16/2022 11:43 AM CDT [facility] EOSINOPHILS 6(H) 1.0 - 3.0 % 05/16/2022 11:43 AM CDT [facility] ABS. NEUTROPHILS TOTAL 2.32 1.69 - 7.81 x10'3/uL 05/16/2022 11:43 AM CDT [facility] ABS. LYMPHOCYTES 3.99 0.21 - 5.42 x10'3/uL 05/16/2022 11:43 AM CDT [facility] ABS. MONOCYTES 1.49(H) 0.04 - 1.37 x10'3/uL 05/16/2022 11:43 AM CDT [facility] ABS. EOSINOPHILS 0.50 0.00 - 0.68 x10'3/uL 05/16/2022 11:43 AM CDT [facility] PLT MORPH. NORMAL 05/16/2022 11:43 AM CDT [facility] RBC MORPHOLOGY 1+ 05/16/2022 11:43 AM CDT [facility] Comment: ANISOCYTOSIS 1+ POIKILOCYTOSIS 1+ SCHISTOCYTES 05/16/2022 7:24 AM CDT Madelaine Martínez FIRE CONTROL TECHNICIAN G LABORATORY Final Re sult [facility] [address] [place] [address], documented in this encounter Visit Diagnoses Diagnosis Liver replaced by transplant (CMS/HCC HHS/HCC)- Primary Liver replaced by transplant documented in this encounter Care Teams Heel Builder Machine Relationship Specialty Start Date End Date Guero Colunga DO [address] [address] PCP - General INTERNAL MEDICINE 06/16/21 documented as of this encounter
--- OUTSIDE RECORDS SUMMARY | 2024-10-28 06:00 | XMS_ITS | Encounter Summary ---
Author Organization [facility] Address [facility]6 [facility] [place] [address] [place] [address] Care Team Providers Care Corrections Corporal Name Role Phone Guero Colunga DO Primary Care Provider [phone] Encounter Details Date Type Department Care Team (Late st Contact Info) Description 04/17/2022 7:30 AM CDT - 04/17/2022 7:38 AM CDT Hospital Encounter [facility] [address] [place] [address] Madelaine Martínez, IADEN [address] [address] Discharge Disposition: Home or Self Care (Routine [...] Associated Diagnosis Comments COMPREHENSIVE METABOLIC PANEL Routine 04/17/2022 7:42 AM CDT Liver replaced by transplant (CMS/HCC HHS/HCC) GGT, GAMMA GLUTAMYLTRANSFERASE Routine 04/17/2022 7:42 AM CDT Liver replaced by transplant (CMS/HCC HHS/HCC) TACROLIMUS Routine 04/17/2022 7:42 AM CDT Liver replaced by transplant (CMS/HCC HHS/HCC) CBC W/DIFF AUTOMATED Routine 04/17/2022 7:41 AM CDT Liver replaced by transplant (CMS/HCC HHS/HCC) documented in this encounter Results * TACROLIMUS (04/17/2022 7:42 AM CDT) TACROLIMUS 10.8 mcg/L 04/20/2022 6:55 AM CDT [facility] JASON JACKSON Comment: No definitive therapeutic or toxic ranges have been established. Optimal blood drug levels are influenced by type of transplant, patient response, time post- transplant, co-administration of other drugs, and drug formulation. The following trough range is a suggested guideline: ? 5.0-20.0 mcg/L This test was developed and its analytical performance characteristics have been determined by [facility] [place], [place]. It has not been cleared or approved by the U.S. Food and Drug Administration. This assay has been validated pursuant to the CLIA regulations and is used for clinical purposes. Test Performed by [facility], [facility] [place], [address] [place] [address] Severino Chavez M.D., Ph.D., Director of Laboratories , CLIA [id number] 04/17/2022 7:42 AM CDT Madelaine Martínez TREATMENT COORDINATOR LABORATORY Final Re sult [facility] [address] [place] [address], [place] [phone] * (ABNORMAL) GGT, GAMMA GLUTAMYLTRANSFERASE (04/17/2022 7:42 AM CDT) GGT 122(H) 15.0 - 85.0 U/L 04/17/2022 2:04 PM CDT [facility] 04/17/2022 7:42 AM CDT Madelaine Martínez TREATMENT COORDINATOR LABORATORY Final Re sult Performing Organization Address City/[facility]/ZIP Co de Phone Number [facility] [address] [place] [address], [place] [phone] * (ABNORMAL) COMPREHENSIVE METABOLIC PANEL (04/17/2022 7:42 AM CDT) GLUCOSE 96 70 - 99 MG/DL 04/17/2022 9:14 AM CDT [facility] BUN 15 7 - 18 MG/DL 04/17/2022 9:14 AM CDT [facility] CREATININE S/P/B 1.20 0.7 - 1.3 MG/DL 04/17/2022 9:14 AM CDT [facility] SODIUM S/P/B 143 136 - 145 MMOL/L 04/17/2022 9:14 AM CDT [facility] POTASSIUM S/P/B 3.9 3.5 - 5.1 MMOL/L 04/17/2022 9:14 AM CDT [facility] CHLORIDE S/P/B 112(H) 100 - 108 MMOL/L 04/17/2022 9:14 AM [facility] CO2 24.6 21 - 32 MMOL/L 04/17/2022 9:14 AM [facility] CALCIUM S/P/B 8.4(L) 8.5 - 10.1 MG/DL 04/17/2022 9:14 AM [facility] BILIRUBIN TOTAL S/P/B 2.1(H) 0.2 - 1.2 MG/DL 04/17/2022 9:14 AM [facility] Comment: THIS ASSAY IS NOT RECOMMENDED FOR PATIENTS UNDERGOING TREATMENT WITH ELTROMBOPAG DUE TO THE POTENTIAL FOR FALSELY ELEVATED RESULTS. TOTAL PROTEIN S/P/B 5.9(L) 6.4 - 8.2 G/DL 04/17/2022 9:14 AM [facility] ALBUMIN S/P/B 3.2(L) 3.4 - 5.0 G/DL 04/17/2022 9:14 AM [facility] AST 97(H) 15 - 37 U/L 04/17/2022 9:14 AM [facility] ALT 98(H) 16 - 60 U/L 04/17/2022 9:14 AM [facility] ALKALINE PHOSPHATASE S/P/B 342(H) 50 - 136 U/L 04/17/2022 9:14 AM [facility] ANION GAP 6.4 5 - 15 MMOL/L 04/17/2022 9:14 AM [facility] BUN CREATININE RATIO 12.5 6 - 26 04/17/2022 9:14 AM [facility] A/G RATIO 1.2 1.0 - 2.0 RATIO 04/17/2022 9:14 AM [facility] GFR ESTIMATE 84(L) >90 ML/MIN/1.7 3 M2 04/17/2022 9:14 AM CDT [facility] Comment: NOTE: eGFR is not calculated for patients <18 years of age. This is an estimated GFR calculation using the new CKD EPI creatinine equation without race and so does not require a correction factor for race. This estimated GFR should not be used for calculating drug doses. 04/17/2022 7:42 AM CDT Madelaine Martínez TREATMENT COORDINATOR LABORATORY Final Re sult [facility] [address] [place] [address], [place] [phone] * (ABNORMAL) CBC W/DIFF AUTOMATED (04/17/2022 7:41 AM CDT) WBC 10.3 4.8 - 10.8 x10'3/uL 04/17/2022 9:23 AM CDT [facility] RBC 3.88(L) 4.50 - 5.90 x10'6/uL 04/17/2022 9:23 AM CDT [facility] HGB 13.2(L) 13.5 - 17.5 G/DL 04/17/2022 9:23 AM CDT [facility] HCT 37.7(L) 41 - 53 % 04/17/2022 9:23 AM CDT [facility] MCV 97.2 80 - 100 FL 04/17/2022 9:23 AM CDT [facility] MCH 34.0 26.0 - 34.0 PG 04/17/2022 9:23 AM CDT [facility] MCHC 35.0 31.0 - 37.0 G/DL 04/17/2022 9:23 AM CDT [facility] RDW 16.5(H) 11.5 - 14.5 % 04/17/2022 9:23 AM CDT [facility] PLT 199 150 - 350 x10'3/uL 04/17/2022 9:23 AM CDT [facility] MPV 11.7(H) 7.0 - 10.4 FL 04/17/2022 9:23 AM CDT [facility] SEG NEUTROPHILS 36(L) 50 - 70 % 9:39 AM CDT [facility] LYMPHOCYTES 49(H) 18 - 42 % 04/17/2022 9:39 AM CDT [facility] MONOCYTES 15(H) 2 - 11 % 04/17/2022 9:39 AM CDT [facility] ABS. NEUTROPHILS TOTAL 3.71 1.69 - 7.81 x10'3/uL 04/17/2022 9:39 AM CDT [facility] ABS. LYMPHOCYTES 5.04 0.21 - 5.42 x10'3/uL 04/17/2022 9:39 AM CDT [facility] ABS. MONOCYTES 1.55(H) 0.04 - 1.37 x10'3/uL 04/17/2022 9:39 AM CDT [facility] PLT MORPH. NORMAL 04/17/2022 9:39 AM CDT [facility] RBC MORPHOLOGY 1+ 04/17/2022 9:39 AM CDT [facility] Comment: ANISOCYTOSIS 1+ JACQUI CELLS 04/17/2022 7:41 AM CDT us Madelaine Martínez NP LABORATORY Final Re sult [facility] [address] [place] [address], [place] [phone] documented in this encounter Visit Diagnoses Diagnosis Liver replaced by transplant (CMS/HCC HHS/HCC) Liver replaced by transplant documented in this encounter Care Teams Corrections Corporal Relationship Specialty Start Date End Date Guero Colunga DO [address] [place] [address] [phone] PCP - General INTERNAL MEDICINE 06/16/21 documented as of this encounter
--- OUTSIDE RECORDS SUMMARY | 2024-10-28 06:00 | XMS_ITS | Encounter Summary ---
Author Organization [facility] Address [facility] [place] [address] [place] [address] Care Team Providers Care Program Specialist Name Role Phone Guero Colunga DO Primary Care Provider [phone] Encounter Details Date Type Department Care Team (Late st Contact Info) Description 05/16/2022 7:12 AM CDT Hospital Encounter 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) COMPREHENSIVE METABOLIC PANEL Routine 05/16/2022 7:24 AM CDT Liver replaced by transplant ([facility]/HCC HHS/HCC) CBC W/DIFF AUTOMATED Routine 05/16/2022 7:24 AM CDT Liver replaced by transplant ([facility]/HCC HHS/HCC) GGT, GAMMA GLUTAMYLTRANSFERASE Routine 05/16/2022 7:24 AM CDT Liver replaced by transplant ([facility]/HCC HHS/HCC) TACROLIMUS Routine 05/16/2022 7:24 AM CDT Liver replaced by transplant ([facility]/HCC HHS/HCC) documented in this encounter Results * (ABNORMAL) CMV DNA QUANT REAL TIME PCR (05/16/2022 7:24 AM CDT) SPECIMEN SOURCE WHOLE BLOOD 05/20/2022 7:50 AM CDT [facility] CMV DNA QN PCR (BLD) 474(HH) IU/mL 05/19/2022 11:13 PM CDT [facility] AMINTA-ANIBAL LY CMV DNA QUANT PCR (BLD) 2.68(H) log IU/mL 05/19/2022 11:13 PM CDT [facility] LEMOS-DANUTATIL LY Comment: REFERENCE RANGE: NOT DETECTED This test was developed and its analytical performance characteristics have been determined by [facility] [place], [place]. It has not been cleared or approved by the U.S. Food and Drug Administration. This assay has been validated pursuant to the CLIA regulations and is used for clinical purposes. For additional information, please refer to http://[email or web address].[facility]/faq/CMVandEBVPCR (This link is being provided for informational/ educational purposes only.) Test Performed by [facility], [email or web address] [place], [address] [place] [address] Severino Chavez M.D., Ph.D., Director of Laboratories , CLIA [id number] 05/16/2022 7:24 AM CDT us Jil Duncan MD LABORATORY Final Result [facility] [address], [place] [phone] [facility] [address] [place] [address], [place] [phone] * TACROLIMUS (05/16/2022 7:24 AM CDT) [facility] TACROLIMUS 7.9 mcg/L 05/20/2022 2:55 PM CDT [facility] LEMOSÁNGEL JACKSON Comment: No definitive therapeutic or toxic ranges have been established. Optimal blood drug levels are influenced by type of transplant, patient response, time post- transplant, co-administration of other drugs, and drug formulation. The following trough range is a suggested guideline: ? 5.0-20.0 mcg/L This test was developed and its analytical performance characteristics have been determined by [email or web address] [place], [place]. It has not been cleared or approved by the U.S. Food and Drug Administration. This assay has been validated pursuant to the CLIA regulations and is used for clinical purposes. Test Performed by [facility] [place], [email or web address] [place], [address] [place] [address] Severino Chavez M.D., Ph.D., Director of Laboratories , [place] [id number] 05/16/2022 7:24 AM CDT Madelaine Martínez BLOCK CHOPPER HAND LABORATORY Final Re sult [facility] [address] [place], [place] , [place] [phone] * (ABNORMAL) GGT, GAMMA GLUTAMYLTRANSFERASE (05/16/2022 7:24 AM CDT) GGT 184(H) 15.0 - 85.0 U/L 05/17/2022 12:26 PM CDT [facility] 05/16/2022 7:24 AM CDT Madelaine Martínez BLOCK CHOPPER HAND LABORATORY Final Re sult Performing Organization Address [facility]/ZIP Co de Phone Number [facility] [address] [place] [id number], [place] [phone] * (ABNORMAL) COMPREHENSIVE METABOLIC PANEL (05/16/2022 7:24 AM CDT) GLUCOSE 92 70 - 99 MG/DL 05/16/2022 9:26 AM CDT [facility] BUN 22(H) 7 - 18 MG/DL 05/16/2022 9:26 AM CDT [facility] CREATININE S/P/B 1.20 0.7 - 1.3 MG/DL 05/16/2022 9:26 AM CDT [facility] SODIUM S/P/B 142 136 - 145 MMOL/L 05/16/2022 9:26 AM CDT [facility] POTASSIUM S/P/B 4.5 3.5 - 5.1 MMOL/L 05/16/2022 9:26 AM T [facility] CHLORIDE S/P/B 110(H) 100 - 108 MMOL/L 05/16/2022 9:26 AM [facility] CO2 24.4 21 - 32 MMOL/L 05/16/2022 9:26 AM [facility] CALCIUM S/P/B 8.2(L) 8.5 - 10.1 MG/DL 05/16/2022 9:26 AM [facility] BILIRUBIN TOTAL S/P/B 1.7(H) 0.2 - 1.2 MG/DL 05/16/2022 9:26 AM [facility] Comment: THIS ASSAY IS NOT RECOMMENDED FOR PATIENTS UNDERGOING TREATMENT WITH ELTROMBOPAG DUE TO THE POTENTIAL FOR FALSELY ELEVATED RESULTS. TOTAL PROTEIN S/P/B 5.8(L) 6.4 - 8.2 G/DL 05/16/2022 9:26 AM [facility] ALBUMIN S/P/B 3.0(L) 3.4 - 5.0 G/DL 05/16/2022 9:26 AM [facility] AST 102(H) 15 - 37 U/L 05/16/2022 9:26 AM [facility] ALT 96(H) 16 - 60 U/L 05/16/2022 9:26 AM [facility] ALKALINE PHOSPHATASE S/P/B 322(H) 50 - 136 U/L 05/16/2022 9:26 AM [facility] ANION GAP 7.6 5 - 15 MMOL/L 05/16/2022 9:26 AM [facility] BUN CREATININE RATIO 18.3 6 - 26 05/16/2022 9:26 AM [facility] A/G RATIO 1.1 1.0 - 2.0 RATIO 05/16/2022 9:26 AM CDT [facility] GFR ESTIMATE 84(L) >90 ML/MIN/1.7 3 M2 05/16/2022 9:26 AM CDT [facility] Comment: NOTE: eGFR is not calculated for patients <18 years of age. This is an estimated GFR calculation using the new CKD EPI creatinine equation without race and so does not require a correction factor for race. This estimated GFR should not be used for calculating drug doses. 05/16/2022 7:24 AM CDT Madelaine Martínez NP LABORATORY Final Re sult [facility] [address] [place] [id number], * (ABNORMAL) CBC W/DIFF AUTOMATED (05/16/2022 7:24 AM CDT) WBC 8.3 4.8 - 10.8 x10'3/uL 05/16/2022 8:33 AM CDT [facility] RBC 3.71(L) 4.50 - 5.90 x10'6/uL 05/16/2022 8:33 AM CDT [facility] HGB 12.5(L) 13.5 - 17.5 G/DL 05/16/2022 8:33 AM CDT [facility] HCT 37.0(L) 41 - 53 % 05/16/2022 8:33 AM CDT [facility] MCV 99.7 80 - 100 FL 05/16/2022 8:33 AM CDT [facility] MCH 33.7 26.0 - 34.0 PG 05/16/2022 8:33 AM CDT [facility] MCHC 33.8 31.0 - 37.0 G/DL 05/16/2022 8:33 AM CDT [facility] RDW 19.4(H) 11.5 - 14.5 % 05/16/2022 8:33 AM CDT [facility] PLT 180 150 - 350 x10'3/uL 05/16/2022 8:33 AM T [facility] MPV 11.7(H) 7.0 - 10.4 FL 05/16/2022 8:33 AM CDT [facility] SEG NEUTROPHILS 28(L) 50 - 70 % 11:43 AM CDT [facility] LYMPHOCYTES 48(H) 18 - 42 % 05/16/2022 11:43 AM T [facility] MONOCYTES 18(H) 2 - 11 % 05/16/2022 11:43 AM T [facility] EOSINOPHILS 6(H) 1.0 - 3.0 % 05/16/2022 11:43 AM T [facility] ABS. NEUTROPHILS TOTAL 2.32 1.69 - 7.81 x10'3/uL 05/16/2022 11:43 AM T [facility] ABS. LYMPHOCYTES 3.99 0.21 - 5.42 x10'3/uL 05/16/2022 11:43 AM T [facility] ABS. MONOCYTES 1.49(H) 0.04 - 1.37 x10'3/uL 05/16/2022 11:43 AM T [facility] ABS. EOSINOPHILS 0.50 0.00 - 0.68 x10'3/uL 05/16/2022 11:43 AM T [facility] PLT MORPH. 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
--- OUTSIDE RECORDS SUMMARY | 2024-10-28 06:00 | XMS_ITS | Encounter Summary ---
Author Organization [facility] Address [facility] [place] [address] [place] [address] Care Team Providers Care Detective Chief Name Role Phone Guero Colunga DO Primary Care Provider [phone] Encounter Details Date Type Department Care Team (Late st Contact Info) Description 11/07/2022 9:05 AM ACCOUNTING INSTRUCTOR - 11/07/2022 11:59 PM ACCOUNTING INSTRUCTOR Hospital Encounter [facility] [address] [place] [address] Jil Duncan MD 1 [facility] [address]Z [place] [address] Discharge Disposition: Home or Self Care (Routine [...] Coronavirus/COVID-19? No / Unsure 11/07/2022 9:06 AM ACCOUNTING INSTRUCTOR documented as of this encounter Medications at [...] CMV DNA QUANT REAL TIME PCR Routine 11/07/2022 9:20 AM ACCOUNTING INSTRUCTOR Cytomegaloviral disease (CMS/HCC HHS/HCC) documented in this encounter Results * (ABNORMAL) CMV DNA QUANT REAL TIME PCR (11/07/2022 9:20 AM ACCOUNTING INSTRUCTOR) SPECIMEN SOURCE BLOOD 10:04 AM ACCOUNTING INSTRUCTOR [facility] CMV DNA QN PCR (BLD) 4,545() IU/mL 11/11/2022 3:10 AM ACCOUNTING INSTRUCTOR [email or web address] CMV DNA QUANT PCR (BLD) 3.66(H) log IU/mL 11/11/2022 3:10 AM ACCOUNTING INSTRUCTOR [email or web address] Comment: REFERENCE RANGE: NOT DETECTED This test was developed and its analytical performance characteristics have been determined by [employer] [place], [place]. It has not been cleared or approved by the U.S. Food and Drug Administration. This assay has been validated pursuant to the CLIA regulations and is used for clinical purposes. For additional information, please refer to http://education.Porphyrio/faq/CMVandEBVPCR (This link is being provided for informational/ educational purposes only.) Test Performed by [facility], [facility] [place], [address] [place] [address] Severino Chavez M.D., Ph.D., Director of Laboratories , CLIA [id number] 11/07/2022 9:20 AM ACCOUNTING INSTRUCTOR us Jil Duncan MD LABORATORY Final Result [employer] [id number] [place], [place] , [place] [phone] [facility] [address] [place] [address], [place] [phone] documented in this encounter Visit Diagnoses Diagnosis Liver replaced by transplant (CMS/HCC HHS/HCC) Liver replaced by transplant 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
--- OUTSIDE RECORDS SUMMARY | 2024-10-28 06:00 | XMS_ITS | Encounter Summary ---
Author Organization [facility] Address [facility] access hospital6 [facility] [place] [address] [place] [address] Care Team Providers Care Deck Engineer Name Role Phone Guero Colunga DO Primary Care Provider [phone] Encounter Details Date Type Department Care Team (Late st Contact Info) Description 05/09/2022 Orders Only [facility] [address] [place] [address] Madelaine Martínez, AIDEN 45[address] [facility] [address] [place] [address] Social History Tobacco Use Types Packs/Day Years [...] as of this encounter Results * TACROLIMUS (05/09/2022 7:04 AM CDT) TACROLIMUS 9.0 mcg/L 05/12/2022 5:04 PM CDT [facility] JASON JACKSON Comment: No definitive therapeutic or toxic ranges have been established. Optimal blood drug levels are influenced by type of transplant, patient response, time post- transplant, co-administration of other drugs, and drug formulation. The following trough range is a suggested guideline: ? 5.0-20.0 mcg/L This test was developed and its analytical performance characteristics have been determined by [employer] [place], [place]. It has not been cleared or approved by the U.S. Food and Drug Administration. This assay has been validated pursuant to the CLIA regulations and is used for clinical purposes. Test Performed by [facility], [facility], [address] [place], [place] Severino Chavez M.D., Ph.D., Director of Laboratories , CLIA [id number] 05/09/2022 7:04 AM CDT Madelaine Martínez DIGITAL CARTOGRAPHIC TECHNICIAN LABORATORY Final Re sult Performing Organization Address City/[facility]/ZIP Co de Phone Number [employer] [address] , [place] [phone] * (ABNORMAL) GGT, GAMMA GLUTAMYLTRANSFERASE (05/09/2022 7:03 AM CDT) GGT 154(H) 15.0 - 85.0 U/L 05/09/2022 1:49 PM CDT [facility] 05/09/2022 7:03 AM CDT Madelaine Martínez DIGITAL CARTOGRAPHIC TECHNICIAN LABORATORY Final Re sult [facility] [address] [place] [address], [place] [phone] * (ABNORMAL) COMPREHENSIVE METABOLIC PANEL (05/09/2022 7:02 AM CDT) [facility] GLUCOSE 90 70 - 99 MG/DL 05/09/2022 7:39 AM T [facility] BUN 25(H) 7 - 18 MG/DL 05/09/2022 7:39 AM T [facility] CREATININE S/P/B 1.10 0.7 - 1.3 MG/DL 05/09/2022 7:39 AM T [facility] SODIUM S/P/B 141 136 - 145 MMOL/L 05/09/2022 7:39 AM T [facility] POTASSIUM S/P/B 4.5 3.5 - 5.1 MMOL/L 05/09/2022 7:39 AM [facility] CHLORIDE S/P/B 109(H) 100 - 108 MMOL/L 05/09/2022 7:39 AM [facility] CO2 24.0 21 - 32 MMOL/L 05/09/2022 7:39 AM [facility] CALCIUM S/P/B 8.7 8.5 - 10.1 MG/DL 05/09/2022 7:39 AM [facility] BILIRUBIN TOTAL S/P/B 2.5(H) 0.2 - 1.2 MG/DL 05/09/2022 7:39 AM T [facility] Comment: THIS ASSAY IS NOT RECOMMENDED FOR PATIENTS UNDERGOING TREATMENT WITH ELTROMBOPAG DUE TO THE POTENTIAL FOR FALSELY ELEVATED RESULTS. TOTAL PROTEIN S/P/B 6.2(L) 6.4 - 8.2 G/DL 05/09/2022 7:39 AM [facility] ALBUMIN S/P/B 3.2(L) 3.4 - 5.0 G/DL 05/09/2022 7:39 AM [facility] AST 105(H) 15 - 37 U/L 05/09/2022 7:39 AM CDT [facility] ALT 88(H) 16 - 60 U/L 05/09/2022 7:39 AM T [facility] ALKALINE PHOSPHATASE S/P/B 308(H) 50 - 136 U/L 05/09/2022 7:39 AM CDT [facility] ANION GAP 8.0 5 - 15 MMOL/L 05/09/2022 7:39 AM CDT [facility] BUN CREATININE RATIO 22.7 6 - 26 05/09/2022 7:39 AM T [facility] A/G RATIO 1.1 1.0 - 2.0 RATIO 05/09/2022 7:39 AM T [facility] GFR ESTIMATE >90 >90 ML/MIN/1.7 3 M2 05/09/2022 7:39 AM T [facility] Comment: NOTE: eGFR is not calculated for patients <18 years of age. This is an estimated GFR calculation using the new CKD EPI creatinine equation without race and so does not require a correction factor for race. This estimated GFR should not be used for calculating drug doses. 05/09/2022 7:02 AM CDT Madelaine Martínez NP LABORATORY Final Re sult [facility] [address] [place] [address], [place] [phone] * (ABNORMAL) CBC W/DIFF AUTOMATED (05/09/2022 7:02 AM CDT) WBC 9.5 4.8 - 10.8 x10'3/uL 05/09/2022 8:07 AM CDT [facility] RBC 3.65(L) 4.50 - 5.90 x10'6/uL 05/09/2022 8:07 AM CDT [facility] HGB 12.5(L) 13.5 - 17.5 G/DL 05/09/2022 8:07 AM CDT [facility] HCT 35.7(L) 41 - 53 % 05/09/2022 8:07 AM CDT [facility] MCV 97.8 80 - 100 FL 05/09/2022 8:07 AM CDT [facility] MCH 34.2(H) 26.0 - 34.0 PG 05/09/2022 8:07 AM CDT [facility] MCHC 35.0 31.0 - 37.0 G/DL 05/09/2022 8:07 AM CDT [facility] RDW 19.1(H) 11.5 - 14.5 % 05/09/2022 8:07 AM CDT [facility] PLT 190 150 - 350 x10'3/uL 05/09/2022 8:07 AM CDT [facility] MPV 11.4(H) 7.0 - 10.4 FL 05/09/2022 8:07 AM T [facility] SEG NEUTROPHILS 26(L) 50 - 70 % 8:26 AM CDT [facility] LYMPHOCYTES 49(H) 18 - 42 % 05/09/2022 8:26 AM CDT [facility] MONOCYTES 19(H) 2 - 11 % 05/09/2022 8:26 AM CDT [facility] EOSINOPHILS 6(H) 1.0 - 3.0 % 05/09/2022 8:26 AM CDT [facility] ABS. NEUTROPHILS TOTAL 2.47 1.69 - 7.81 x10'3/uL 05/09/2022 8:26 AM CDT [facility] ABS. LYMPHOCYTES 4.65 0.21 - 5.42 x10'3/uL 05/09/2022 8:26 AM CDT [facility] ABS. MONOCYTES 1.81(H) 0.04 - 1.37 x10'3/uL 05/09/2022 8:26 AM CDT [facility] ABS. EOSINOPHILS 0.57 0.00 - 0.68 x10'3/uL 05/09/2022 8:26 AM CDT [facility] PLT MORPH. NORMAL 05/09/2022 8:26 AM CDT [facility] RBC MORPHOLOGY 1+ 05/09/2022 8:26 AM CDT [facility] Comment: ANISOCYTOSIS 1+ POIKILOCYTOSIS 1+ JACQUI CELLS 1+ TARGET CELLS 05/09/2022 7:02 AM CDT Madelaine Martínez DIGITAL CARTOGRAPHIC TECHNICIAN LABORATORY Final Re sult [facility] [address] [place] [address], documented in this encounter Visit Diagnoses Diagnosis Liver replaced by transplant (CMS/HCC HHS/HCC)- Primary Liver replaced by transplant documented in this encounter Care Teams Deck Engineer Relationship Specialty Start Date End Date Guero Colunga DO [address] [address] PCP - General INTERNAL MEDICINE 06/16/21 documented as of this encounter
--- OUTSIDE RECORDS SUMMARY | 2024-10-28 06:00 | XMS_ITS | Encounter Summary ---
Author Organization [facility] Address [facility]6 [facility] [place] [address] [place] [address] Care Team Providers Care Backside Grinder Name Role Phone Guero Colunga DO Primary Care Provider [phone] Encounter Details Date Type Department Care Team (Late st Contact Info) Description 06/20/2022 Orders Only [facility] [address] [place] [address] Jil Duncan MD 1 [facility] [address] DIV [place] [address] Social History Tobacco Use Types Packs/Day Years [...] CDT) SPECIMEN SOURCE BLOOD 9:19 AM CDT [facility] () [facility] CMV DNA QN PCR (BLD) 18,358(HH ) IU/mL 06/22/2022 9:27 AM CDT [facility] JASON LY CMV DNA QUANT PCR (BLD) 4.26(H) log IU/mL 06/22/2022 9:27 AM CDT [facility] [employer] [facility] JASON LY Comment: REFERENCE RANGE: NOT DETECTED This test was developed and its analytical performance characteristics have been determined by [employer], [place]. It has not been cleared or approved by the U.S. Food and Drug Administration. This assay has been validated pursuant to the CLIA regulations and is used for clinical purposes. For additional information, please refer to http://education.Adapt[employer]/faq/CMVandEBVPCR (This link is being provided for informational/ educational purposes only.) Test Performed by [employer], [employer] [facility], [address] [place] [address] Severino Chavez M.D., Ph.D., Director of Laboratories , CLIA [id number] 06/20/2022 9:17 AM CDT us Jil Duncan MD LABORATORY Final Result [employer] [address] , [place] [phone] [facility] [address] [place] [address], [place] [phone] documented in this encounter Visit Diagnoses Diagnosis Liver replaced by transplant (CMS/HCC HHS/HCC)- Primary Liver replaced by transplant documented in this encounter Care Teams Backside Grinder Relationship Specialty Start Date End Date Guero Colunga DO [address] [address] PCP - General INTERNAL MEDICINE 06/16/21 documented as of this encounter
--- OUTSIDE RECORDS SUMMARY | 2024-10-28 06:00 | XMS_ITS | Encounter Summary ---
Author Organization [facility] Address [facility]6 [facility]. [place], [place] [address] [place] [address] Care Team Providers Care Medical Or Surgical Instrument Maker Name Role Phone Guero Colunga DO Primary Care Provider [phone] Encounter Details Date Type Department Care Team (Latest Contact Info) Description 07/25/2022 Travel Social History Tobacco Use Types Packs/Day [...] on filedocumented in this encounter Care Teams Medical Or Surgical Instrument Maker Relationship Specialty Start Date End Date Guero Colunga DO [address] [facility] [address] [place] [address] PCP - General INTERNAL MEDICINE 06/16/21 documented as of this encounter
--- OUTSIDE RECORDS SUMMARY | 2024-10-28 06:00 | XMS_ITS | Encounter Summary ---
Author Organization [facility] Address [facility] [place] [address] [place] [address] Care Team Providers Care Supervisor Riprap Placing Name Role Phone Guero Colunga DO Primary Care Provider [phone] Encounter Details Date Type Department Care Team (Late st Contact Info) Description 07/18/2022 8:47 AM CDT - 07/18/2022 8:48 AM CDT Hospital Encounter [facility] [address] [place] [address] Madelaine Martínez, AIDEN [address] [address] Discharge Disposition: Home or Self Care (Routine [...] Associated Diagnosis Comments COMPREHENSIVE METABOLIC PANEL Routine 07/18/2022 12:51 PM CDT Liver replaced by transplant (CMS/HCC HHS/HCC) CBC, AUTO, NO DIFF Routine 07/18/2022 12 :51 PM CDT Liver replaced by transplant (CMS/HCC HHS/HCC) GGT, GAMMA GLUTAMYLTRANSFERASE Routine 07/18/2022 12:51 PM CDT Liver replaced by transplant (CMS/HCC HHS/HCC) TACROLIMUS Routine 07/18/2022 12:51 PM CDT Liver replaced by transplant (CMS/HCC HHS/HCC) documented in this encounter Results * TACROLIMUS (07/18/2022 12:51 PM CDT) TACROLIMUS 6.0 mcg/L 07/20/2022 4:18 PM CDT [facility] JASON JACKSON Comment: No definitive therapeutic or toxic ranges have been established. Optimal blood drug levels are influenced by type of transplant, patient response, time post- transplant, co-administration of other drugs, and drug formulation. The following trough range is a suggested guideline: ? 5.0-20.0 mcg/L This test was developed and its analytical performance characteristics have been determined by [employer] [place], [place]. It has not been cleared or approved by the U.S. Food and Drug Administration. This assay has been validated pursuant to the CLIA regulations and is used for clinical purposes. Test Performed by [facility], [facility] [place], [address] [place] [address] Severino Chavez M.D., Ph.D., Director of Laboratories , CLIA [id number] 07/18/2022 12:5 1 PM CDT Madelaine Martínez MOLDER LABORATORY Final Re sult [facility] [address] [place] [address], [place] [phone] * (ABNORMAL) GGT, GAMMA GLUTAMYLTRANSFERASE (07/18/2022 12:51 PM CDT) GGT 146(H) 15.0 - 85.0 U/L 07/19/2022 2:49 PM CDT [facility] 07/18/2022 12:5 1 PM CDT Madelaine Martínez MOLDER LABORATORY Final Re sult Performing Organization Address City/[facility]/ZIP Co de Phone Number [facility] [address] [place] [address], [place] [phone] * (ABNORMAL) COMPREHENSIVE METABOLIC PANEL (07/18/2022 12:51 PM CDT) Pathologist [facility] GLUCOSE 84 70 - 99 MG/DL 07/18/2022 1:45 PM CDT [facility] BUN 11 7 - 18 MG/DL 07/18/2022 1:45 PM CDT [facility] CREATININE S/P/B 0.82 0.7 - 1.3 MG/DL 07/18/2022 1:45 PM CDT [facility] SODIUM S/P/B 140 136 - 145 MMOL/L 07/18/2022 1:45 PM CDT [facility] POTASSIUM S/P/B 4.6 3.5 - 5.1 MMOL/L 07/18/2022 1:45 PM CDT [facility] CHLORIDE S/P/B 107 100 - 108 MMOL/L 07/18/2022 1:45 PM [facility] CO2 23.5 21 - 32 MMOL/L 07/18/2022 1:45 PM [facility] CALCIUM S/P/B 8.4(L) 8.5 - 10.1 MG/DL 07/18/2022 1:45 PM [facility] BILIRUBIN TOTAL S/P/B 1.9(H) 0.2 - 1.2 MG/DL 07/18/2022 1:45 PM [facility] TOTAL PROTEIN S/P/B 6.1(L) 6.4 - 8.2 G/DL 07/18/2022 1:45 PM [facility] ALBUMIN S/P/B 3.0(L) 3.4 - 5.0 G/DL 07/18/2022 1:45 PM [facility] AST 134(H) 15 - 37 U/L 07/18/2022 1:45 PM [facility] ALT 89(H) 16 - 60 U/L 07/18/2022 1:45 PM [facility] ALKALINE PHOSPHATASE S/P/B 284(H) 50 - 136 U/L 07/18/2022 1:45 PM [facility] ANION GAP 9.5 5 - 15 MMOL/L 07/18/2022 1:45 PM [facility] BUN CREATININE RATIO 13.4 6 - 26 07/18/2022 1:45 PM [facility] A/G RATIO 1.0 1.0 - 2.0 RATIO 07/18/2022 1:45 PM [facility] GFR ESTIMATE >90 >90 ML/MIN/1.7 3 M2 07/18/2022 1:45 PM [facility] Comment: NOTE: eGFR is not calculated for patients <18 years of age. This is an estimated GFR calculation using the new CKD EPI creatinine equation without race and so does not require a correction factor for race. This estimated GFR should not be used for calculating drug doses. 07/18/2022 12:5 1 PM CDT Madelaine Martínez MOLDER LABORATORY Final Re sult [facility] [address] [place] [address], * (ABNORMAL) CBC, AUTO, NO DIFF (07/18/2022 12:51 PM CDT) WBC 12.0(H) 4.4 - 11.0 x10'3/uL 07/18/2022 1:05 PM CDT [facility] RBC 3.73(L) 4.50 - 5.90 x10'6/uL 07/18/2022 1:05 PM CDT [facility] HGB 13.4(L) 14.0 - 17.5 G/DL 07/18/2022 1:05 PM CDT [facility] HCT 38.9(L) 41.5 - 50.4 % 07/18/2022 1:05 PM CDT [facility] MCV 104.3(H) 80.0 - 96.0 FL 07/18/2022 1:05 PM CDT [facility] MCH 35.9(H) 26.5 - 31.4 PG 07/18/2022 1:05 PM CDT [facility] MCHC 34.4 31.9 - 34.8 G/DL 07/18/2022 1:05 PM CDT [facility] RDW 17.2(H) 12.3 - 14.3 % 07/18/2022 1:05 PM CDT [facility] PLT 240 151 - 353 x10'3/uL 07/18/2022 1:05 PM CDT [facility] MPV 12.4(H) 9.7 - 11.9 FL 07/18/2022 1:05 PM CDT [facility] 07/18/2022 12:5 1 PM CDT Madelaine Martínez MOLDER LABORATORY Final Re sult [facility] [address] [place] [address], documented in this encounter Visit Diagnoses Diagnosis Liver replaced by transplant (CMS/HCC HHS/HCC) Liver replaced by transplant documented in this encounter Care Teams Supervisor Riprap Placing Relationship Specialty Start Date End Date Guero Colunga DO [address] [address] PCP - General INTERNAL MEDICINE 06/16/21 documented as of this encounter
--- OUTSIDE RECORDS SUMMARY | 2024-10-28 06:00 | XMS_ITS | Encounter Summary ---
Author Organization [facility] Address [address] [place] [address]. [place] [address] [place] [address] Care Team Providers Care News Editor Name Role Phone Guero Colunga DO Primary Care Provider [phone] Encounter Details Date Type Department Care Team (Late st Contact Info) Description 07/04/2022 8:40 AM CDT - 07/04/2022 11:59 PM CDT Hospital Encounter [facility] [address] [place] [address] Jil Duncan MD 1 [facility] [address] DIV [place] [address] Discharge Disposition: Home or Self Care (Routine [...] suspected to have Coronavirus/COVID-19? No / Unsure 07/04/2022 8:38 AM CDT documented as of this encounter Medications at Time of Discharge tacrolimus 0.5 MG capsule Take 0.5 mg by mouth 2 (two) times daily. ursodiol 300 MG capsule Take 600 mg by mouth daily. 10/02/2021 documented as of this encounter Plan of Treatment Not on file documented as of this encounter Visit Diagnoses Not on filedocumented in this encounter Care Teams News Editor Relationship Specialty Start Date End Date Guero Colunga DO [address] [address] PCP - General INTERNAL MEDICINE 06/16/21 documented as of this encounter
--- OUTSIDE RECORDS SUMMARY | 2024-10-28 06:00 | XMS_ITS | Encounter Summary ---
Author Organization [facility] Address Replaced by [facility] [place], [place] [address] [place] [address] Care Team Providers Care Cdl Company Driver Name Role Phone Guero Colunga DO Primary Care Provider [phone] Encounter Details Date Type Department Care Team (Latest Contact Info) Description 04/28/2022 Travel Social History Tobacco Use Types Packs/Day [...] on filedocumented in this encounter Care Teams Cdl Company Driver Relationship Specialty Start Date End Date Guero Colunga DO 2089 [facility] [address] [place] [address] PCP - General INTERNAL MEDICINE 06/16/21 documented as of this encounter
--- OUTSIDE RECORDS SUMMARY | 2024-10-28 06:00 | XMS_ITS | Encounter Summary ---
Author Organization [facility] Address [facility]6 [facility] [place] [address] [place] [address] Care Team Providers Care Vocational Rehabilitation Administrator Name Role Phone Guero Colunga DO Primary Care Provider [phone] Encounter Details Date Type Department Care Team (Late st Contact Info) Description 05/16/2022 7:13 AM CDT - 05/16/2022 11:59 PM CDT Hospital Encounter [facility] [address] [place] [address] Madelaine Martínez, AIDEN [address] [address] Discharge Disposition: Home or Self Care (Routine [...] Priority Date/Time Associated Diagnosis Comments TACROLIMUS Routine 05/16/2022 7:24 AM CDT Liver replaced by transplant (CMS/HCC HHS/HCC) GGT, GAMMA GLUTAMYLTRANSFERASE Routine 05/16/2022 7:24 AM CDT Liver replaced by transplant (CMS/HCC HHS/HCC) COMPREHENSIVE METABOLIC PANEL Routine 05/16/2022 7:24 AM CDT Liver replaced by transplant (CMS/HCC HHS/HCC) CBC W/DIFF AUTOMATED Routine 05/16/2022 7:24 AM CDT Liver replaced by transplant (CMS/HCC HHS/HCC) documented in this encounter Results * TACROLIMUS (05/16/2022 7:24 AM CDT) TACROLIMUS 7.9 mcg/L 05/20/2022 2:55 PM CDT [facility] Comment: No definitive therapeutic or toxic ranges have been established. Optimal blood drug levels are influenced by type of transplant, patient response, time post- transplant, co-administration of other drugs, and drug formulation. The following trough range is a suggested guideline: ? 5.0-20.0 mcg/L This test was developed and its analytical performance characteristics have been determined by [facility] [place], [place]. It has not been cleared or approved by the U.S. Food and Drug Administration. This assay has been validated pursuant to the CLIA regulations and is used for clinical purposes. Test Performed by Girish Vazquez, [facility] [place], [address] [place] [address] Severino Chavez M.D., Ph.D., Director of Laboratories , CLIA [id number] 05/16/2022 7:24 AM CDT Madelaine Martínez [facility] Final Re sult [facility] [address] [place], [place] , [place] [phone] * (ABNORMAL) GGT, GAMMA GLUTAMYLTRANSFERASE (05/16/2022 7:24 AM CDT) GGT 184(H) 15.0 - 85.0 U/L 05/17/2022 12:26 PM CDT [facility] 05/16/2022 7:24 AM CDT Madelaine Martínez [facility] Final Re sult Performing Organization Address City/[facility]/ZIP Co de Phone Number [facility] [address] [place] [address], [place] [phone] * (ABNORMAL) COMPREHENSIVE METABOLIC PANEL (05/16/2022 7:24 AM CDT) GLUCOSE 92 70 - 99 MG/DL 05/16/2022 9:26 AM CDT [facility] BUN 22(H) 7 - 18 MG/DL 05/16/2022 9:26 AM CDT [facility] CREATININE S/P/B 1.20 0.7 - 1.3 MG/DL 05/16/2022 9:26 AM CDT [facility] SODIUM S/P/B 142 136 - 145 MMOL/L 05/16/2022 9:26 AM CDT [facility] POTASSIUM S/P/B 4.5 3.5 - 5.1 MMOL/L 05/16/2022 9:26 AM CDT [facility] CHLORIDE S/P/B 110(H) 100 - 108 MMOL/L 05/16/2022 9:26 AM [facility] CO2 24.4 21 - 32 MMOL/L 05/16/2022 9:26 AM [facility] CALCIUM S/P/B 8.2(L) 8.5 - 10.1 MG/DL 05/16/2022 9:26 AM [facility] BILIRUBIN TOTAL S/P/B 1.7(H) 0.2 - 1.2 MG/DL 05/16/2022 9:26 AM [facility] Comment: THIS ASSAY IS NOT RECOMMENDED FOR PATIENTS UNDERGOING TREATMENT WITH ELTROMBOPAG DUE TO THE POTENTIAL FOR FALSELY ELEVATED RESULTS. TOTAL PROTEIN S/P/B 5.8(L) 6.4 - 8.2 G/DL 05/16/2022 9:26 AM [facility] ALBUMIN S/P/B 3.0(L) 3.4 - 5.0 G/DL 05/16/2022 9:26 AM [facility] AST 102(H) 15 - 37 U/L 05/16/2022 9:26 AM [facility] ALT 96(H) 16 - 60 U/L 05/16/2022 9:26 AM [facility] ALKALINE PHOSPHATASE S/P/B 322(H) 50 - 136 U/L 05/16/2022 9:26 AM [facility] ANION GAP 7.6 5 - 15 MMOL/L 05/16/2022 9:26 AM [facility] BUN CREATININE RATIO 18.3 6 - 26 05/16/2022 9:26 AM [facility] A/G RATIO 1.1 1.0 - 2.0 RATIO 05/16/2022 9:26 AM [facility] GFR ESTIMATE 84(L) >90 ML/MIN/1.7 3 M2 05/16/2022 9:26 AM CDT [facility] Comment: NOTE: eGFR is not calculated for patients <18 years of age. This is an estimated GFR calculation using the new CKD EPI creatinine equation without race and so does not require a correction factor for race. This estimated GFR should not be used for calculating drug doses. 05/16/2022 7:24 AM CDT Madelaine Martínez [facility] Final Re sult [facility] [address] [place] [address], [place] [phone] * (ABNORMAL) CBC W/DIFF AUTOMATED (05/16/2022 7:24 AM CDT) WBC 8.3 4.8 - 10.8 x10'3/uL 05/16/2022 8:33 AM CDT [facility] RBC 3.71(L) 4.50 - 5.90 x10'6/uL 05/16/2022 8:33 AM CDT [facility] HGB 12.5(L) 13.5 - 17.5 G/DL 05/16/2022 8:33 AM CDT [facility] HCT 37.0(L) 41 - 53 % 05/16/2022 8:33 AM CDT [facility] MCV 99.7 80 - 100 FL 05/16/2022 8:33 AM CDT [facility] MCH 33.7 26.0 - 34.0 PG 05/16/2022 8:33 AM CDT [facility] MCHC 33.8 31.0 - 37.0 G/DL 05/16/2022 8:33 AM CDT [facility] RDW 19.4(H) 11.5 - 14.5 % 05/16/2022 8:33 AM CDT [facility] PLT 180 150 - 350 x10'3/uL 05/16/2022 8:33 AM CDT [facility] MPV 11.7(H) 7.0 - 10.4 FL 05/16/2022 8:33 AM CDT [facility] SEG NEUTROPHILS 28(L) 50 - 70 % 11:43 AM CDT [facility] LYMPHOCYTES 48(H) 18 - 42 % 05/16/2022 11:43 AM CDT [facility] MONOCYTES 18(H) 2 - 11 % 05/16/2022 11:43 AM CDT [facility] EOSINOPHILS 6(H) 1.0 - 3.0 % 05/16/2022 11:43 AM CDT [facility] ABS. NEUTROPHILS TOTAL 2.32 1.69 - 7.81 x10'3/uL 05/16/2022 11:43 AM T [facility] ABS. LYMPHOCYTES 3.99 0.21 - 5.42 x10'3/uL 05/16/2022 11:43 AM T [facility] ABS. MONOCYTES 1.49(H) 0.04 - 1.37 x10'3/uL 05/16/2022 11:43 AM CDT [facility] ABS. EOSINOPHILS 0.50 0.00 - 0.68 x10'3/uL 05/16/2022 11:43 AM CDT [facility] PLT MORPH. NORMAL 05/16/2022 11:43 AM CDT [facility] RBC MORPHOLOGY 1+ 05/16/2022 11:43 AM CDT [facility] Comment: ANISOCYTOSIS 1+ POIKILOCYTOSIS 1+ SCHISTOCYTES 05/16/2022 7:24 AM CDT Madelaine Martínez [facility] Final Re sult [facility] [address] [place] [address], documented in this encounter Visit Diagnoses Not on filedocumented in this encounter Care Teams Vocational Rehabilitation Administrator Relationship Specialty Start Date End Date Guero Colunga DO [address] [place] [id number] PCP - General INTERNAL MEDICINE 06/16/21 documented as of this encounter
--- OUTSIDE RECORDS SUMMARY | 2024-10-28 06:00 | XMS_ITS | Encounter Summary ---
Author Organization [facility] Address [facility]6 [facility] [place] [address] [place] [address] Care Team Providers Care Doctor Of Naprapathy Name Role Phone Guero Colunga DO Primary Care Provider Encounter Details Date Type Department Care Team (Late st Contact Info) Description 07/04/2022 8:39 AM CDT Hospital Encounter [facility] [address] [place] [address] Madelaine Martínez, AIDEN [address] [facility] [address] [place] [address] Discharge Disposition: Home or Self Care (Routine [...] Associated Diagnosis Comments COMPREHENSIVE METABOLIC PANEL Routine 07/04/2022 9:15 AM CDT Cytomegalovirus infection (CMS/HCC HHS/HCC) Liver transplanted (CMS/HCC HHS/HCC) Liver replaced by transplant (CMS/HCC HHS/HCC) Cytomegaloviral disease (CMS/HCC HHS/HCC) Transplant, organ CBC, AUTO, NO DIFF Routine 07/04/2022 9: 15 AM CDT Cytomegalovirus infection (CMS/HCC HHS/HCC) Liver transplanted (CMS/HCC HHS/HCC) Liver replaced by transplant (CMS/HCC HHS/HCC) Cytomegaloviral disease (CMS/HCC HHS/HCC) Transplant, organ GGT, GAMMA GLUTAMYLTRANSFERASE Routine 07/04/2022 9:15 AM CDT Cytomegalovirus infection (CMS/HCC HHS/HCC) Liver transplanted (CMS/HCC HHS/HCC) Liver replaced by transplant (CMS/HCC HHS/HCC) Cytomegaloviral disease (CMS/HCC HHS/HCC) Transplant, organ CMV DNA QUANT REAL TIME PCR Routine 07/04/2022 9:14 AM CDT Cytomegalovirus infection (CMS/HCC HHS/HCC) Liver transplanted (CMS/HCC HHS/HCC) Liver replaced by transplant (CMS/HCC HHS/HCC) Cytomegaloviral disease (CMS/HCC HHS/HCC) Transplant, organ TACROLIMUS Routine 07/04/2022 9:14 AM CDT Cytomegalovirus infection (CMS/HCC HHS/HCC) Liver transplanted (CMS/HCC HHS/HCC) Liver replaced by transplant (CMS/HCC HHS/HCC) Cytomegaloviral disease (CMS/HCC HHS/HCC) Transplant, organ documented in this encounter Results * (ABNORMAL) CBC, AUTO, NO DIFF (07/04/2022 9:15 AM CDT) WBC 11.4(H) 4.4 - 11.0 x10'3/uL 07/04/2022 9:41 AM CDT [facility] RBC 3.70(L) 4.50 - 5.90 x10'6/uL 07/04/2022 9:41 AM CDT [facility] HGB 13.2(L) 14.0 - 17.5 G/DL 07/04/2022 9:41 AM CDT [facility] HCT 37.2(L) 41.5 - 50.4 % 07/04/2022 9:41 AM CDT [facility] MCV 100.5(H) 80.0 - 96.0 FL 07/04/2022 9:41 AM CDT [facility] MCH 35.7(H) 26.5 - 31.4 PG 07/04/2022 9:41 AM CDT [facility] MCHC 35.5(H) 31.9 - 34.8 G/DL 07/04/2022 9:41 AM CDT [facility] RDW 16.6(H) 12.3 - 14.3 % 07/04/2022 9:41 AM CDT [facility] PLT 225 151 - 353 x10'3/uL 07/04/2022 9:41 AM CDT [facility] MPV 11.4 9.7 - 11.9 FL 07/04/2022 9:41 AM T [facility] 07/04/2022 9:15 AM CDT us Provider Non-Staff LABORATORY Final Result [facility] [address] [place] [address], * (ABNORMAL) COMPREHENSIVE METABOLIC PANEL (07/04/2022 9:15 AM CDT) GLUCOSE 84 70 - 99 MG/DL 07/04/2022 9:56 AM CDT [facility] BUN 10 7 - 18 MG/DL 07/04/2022 9:56 AM [facility] CREATININE S/P/B 0.91 0.7 - 1.3 MG/DL 07/04/2022 9:56 AM [facility] SODIUM S/P/B 144 136 - 145 MMOL/L 07/04/2022 9:56 AM [facility] POTASSIUM S/P/B 4.4 3.5 - 5.1 MMOL/L 07/04/2022 9:56 AM [facility] CHLORIDE S/P/B 110(H) 100 - 108 MMOL/L 07/04/2022 9:56 AM [facility] CO2 26.0 21 - 32 MMOL/L 07/04/2022 9:56 AM [facility] CALCIUM S/P/B 8.8 8.5 - 10.1 MG/DL 07/04/2022 9:56 AM [facility] BILIRUBIN TOTAL S/P/B 2.8(H) 0.2 - 1.2 MG/DL 07/04/2022 9:56 AM [facility] TOTAL PROTEIN S/P/B 6.2(L) 6.4 - 8.2 G/DL 07/04/2022 9:56 AM [facility] ALBUMIN S/P/B 3.2(L) 3.4 - 5.0 G/DL 07/04/2022 9:56 AM [facility] AST 122(H) 15 - 37 U/L 07/04/2022 9:56 AM [facility] ALT 108(H) 16 - 60 U/L 07/04/2022 9:56 AM [facility] ALKALINE PHOSPHATASE S/P/B 321(H) 50 - 136 U/L 07/04/2022 9:56 AM CDT [facility] ANION GAP 8.0 5 - 15 MMOL/L 07/04/2022 9:56 AM CDT [facility] BUN CREATININE RATIO 11.0 6 - 26 07/04/2022 9:56 AM CDT [facility] A/G RATIO 1.1 1.0 - 2.0 RATIO 07/04/2022 9:56 AM CDT [facility] GFR ESTIMATE >90 >90 ML/MIN/1.7 3 M2 07/04/2022 9:56 AM CDT [facility] Comment: NOTE: eGFR is not calculated for patients <18 years of age. This is an estimated GFR calculation using the new CKD EPI creatinine equation without race and so does not require a correction factor for race. This estimated GFR should not be used for calculating drug doses. 07/04/2022 9:15 AM CDT us Provider Non-Staff LABORATORY Final Result [facility] [address] [place] [address], [place] [phone] * (ABNORMAL) GGT, GAMMA GLUTAMYLTRANSFERASE (07/04/2022 9:15 AM CDT) GGT 147(H) 15.0 - 85.0 U/L 07/04/2022 1:05 PM CDT [facility] 07/04/2022 9:15 AM CDT us Provider Non-Staff LABORATORY Final Result [facility] [address] [place] [address], [place] [phone] * TACROLIMUS (07/04/2022 9:14 AM CDT) TACROLIMUS 6.4 mcg/L 07/07/2022 6:51 AM CDT [facility] Comment: No definitive therapeutic or toxic ranges have been established. Optimal blood drug levels are influenced by type of transplant, patient response, time post- transplant, co-administration of other drugs, and drug formulation. The following trough range is a suggested guideline: ? 5.0-20.0 mcg/L This test was developed and its analytical performance characteristics have been determined by [employer] [place], [place]. It has not been cleared or approved by the U.S. Food and Drug Administration. This assay has been validated pursuant to the CLIA regulations and is used for clinical purposes. Test Performed by [facility], [facility], [address] [place] [address] Severino Chavez M.D., Ph.D., Director of Laboratories , CLIA [id number] 07/04/2022 9:14 AM CDT us Provider Non-Staff LABORATORY Final Result [facility] [address] [phone], * (ABNORMAL) CMV DNA QUANT REAL TIME PCR (07/04/2022 9:14 AM CDT) [facility] SPECIMEN SOURCE SERUM 3:40 PM CDT [facility] CMV DNA QN PCR (BLD) 27,355( ) IU/mL 07/08/2022 10:26 AM CDT [facility] CMV DNA QUANT PCR (BLD) 4.44(H) log IU/mL 07/08/2022 10:26 AM CDT [facility] Comment: REFERENCE RANGE: NOT DETECTED This test was developed and its analytical performance characteristics have been determined by [employer] [place], [place]. It has not been cleared or approved by the U.S. Food and Drug Administration. This assay has been validated pursuant to the CLIA regulations and is used for clinical purposes. For additional information, please refer to http://education.[employer].COM/faq/CMVandEBVPCR (This link is being provided for informational/ educational purposes only.) Test Performed by [facility], [facility], [address] [place], [place] Severino Chavez M.D., Ph.D., Director of Laboratories , CLIA [id number] 07/04/2022 9:14 AM CDT us Provider Non-Staff LABORATORY Final Result [facility] [address] , [place] [phone] [facility] [address] [place] [address], documented in this encounter Visit Diagnoses Diagnosis 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
--- OUTSIDE RECORDS SUMMARY | 2024-10-28 06:00 | XMS_ITS | Encounter Summary ---
Author Organization [facility] Address [facility] [place] [address] [place] [address] Care Team Providers Care Case Finisher Name Role Phone Guero Colunga DO Primary Care Provider [phone] Encounter Details Date Type Department Care Team (Late st Contact Info) Description 04/11/2022 Orders Only [facility] [address] [place] [address] Madelaine Martínez, AIDEN [address] [address] Social History Tobacco Use Types Packs/Day Years [...] as of this encounter Results * (ABNORMAL) CBC, AUTO, NO DIFF (04/11/2022 7:05 AM CDT) WBC 12.6(H) 4.8 - 10.8 x10'3/uL 04/11/2022 7:27 AM CDT [facility] RBC 3.96(L) 4.50 - 5.90 x10'6/uL 04/11/2022 7:27 AM CDT [facility] HGB 13.4(L) 13.5 - 17.5 G/DL 04/11/2022 7:27 AM CDT [facility] HCT 38.2(L) 41 - 53 % 04/11/2022 7:27 AM CDT [facility] MCV 96.5 80 - 100 FL 04/11/2022 7:27 AM CDT [facility] MCH 33.8 26.0 - 34.0 PG 04/11/2022 7:27 AM CDT [facility] MCHC 35.1 31.0 - 37.0 G/DL 04/11/2022 7:27 AM CDT [facility] RDW 15.4(H) 11.5 - 14.5 % 04/11/2022 7:27 AM CDT [facility] PLT 188 150 - 350 x10'3/uL 04/11/2022 7:27 AM CDT [facility] MPV 10.6(H) 7.0 - 10.4 FL 04/11/2022 7:27 AM CDT [facility] 04/11/2022 7:05 AM CDT us Madelaine Martínez NP LABORATORY Final Re sult [facility] [address] [place] [address], * TACROLIMUS (04/11/2022 7:05 AM CDT) TACROLIMUS 9.8 mcg/L 04/16/2022 6:22 AM CDT [facility] Comment: No definitive therapeutic or toxic ranges have been established. Optimal blood drug levels are influenced by type of transplant, patient response, time post- transplant, co-administration of other drugs, and drug formulation. The following trough range is a suggested guideline: ? 5.0-20.0 mcg/L This test was developed and its analytical performance characteristics have been determined by [employer] [place], [place]. It has not been cleared or approved by the U.S. Food and Drug Administration. This assay has been validated pursuant to the CLIA regulations and is used for clinical purposes. Test Performed by [employer] [facility], [employer] [facility], [address] [place] [address] Severino Chavez M.D., Ph.D., Director of Laboratories , CLIA [id number] 04/11/2022 7:05 AM CDT Madelaine Martínez NP LABORATORY Final Re sult Performing Organization Address City/[facility]/ZIP Co de Phone Number [facility] [address] , [place] [phone] * (ABNORMAL) GGT, GAMMA GLUTAMYLTRANSFERASE (04/11/2022 7:05 AM CDT) GGT 110(H) 15.0 - 85.0 U/L 04/11/2022 10:41 PM CDT [facility] 04/11/2022 7:05 AM CDT Madelaine Martínez FINANCIAL SYSTEMS DIRECTOR LABORATORY Final Re sult Performing Organization Address City/[facility]/ZIP Co de Phone Number [facility] [address] [place] [address], [place] [phone] * (ABNORMAL) COMPREHENSIVE METABOLIC PANEL (04/11/2022 7:05 AM CDT) [facility] GLUCOSE 95 70 - 99 MG/DL 04/11/2022 7:58 AM T [facility] BUN 14 7 - 18 MG/DL 04/11/2022 7:58 AM T [facility] CREATININE S/P/B 0.90 0.7 - 1.3 MG/DL 04/11/2022 7:58 AM T [facility] SODIUM S/P/B 140 136 - 145 MMOL/L 04/11/2022 7:58 AM T [facility] POTASSIUM S/P/B 4.3 3.5 - 5.1 MMOL/L 04/11/2022 7:58 AM T [facility] CHLORIDE S/P/B 109(H) 100 - 108 MMOL/L 04/11/2022 7:[address] [facility] CO2 24.4 21 - 32 MMOL/L 04/11/2022 7:58 AM T [facility] CALCIUM S/P/B 8.3(L) 8.5 - 10.1 MG/DL 04/11/2022 7:[address] [facility] BILIRUBIN TOTAL S/P/B 2.0(H) 0.2 - 1.2 MG/DL 04/11/2022 7:58 AM T [facility] Comment: THIS ASSAY IS NOT RECOMMENDED FOR PATIENTS UNDERGOING TREATMENT WITH ELTROMBOPAG DUE TO THE POTENTIAL FOR FALSELY ELEVATED RESULTS. TOTAL PROTEIN S/P/B 5.7(L) 6.4 - 8.2 G/DL 04/11/2022 7:58 AM T [facility] ALBUMIN S/P/B 3.0(L) 3.4 - 5.0 G/DL 04/11/2022 7:58 AM CDT [facility] AST 100(H) 15 - 37 U/L 04/11/2022 7:58 AM T [facility] ALT 94(H) 16 - 60 U/L 04/11/2022 7:58 AM T [facility] ALKALINE PHOSPHATASE S/P/B 330(H) 50 - 136 U/L 04/11/2022 7:58 AM T [facility] ANION GAP 6.6 5 - 15 MMOL/L 04/11/2022 7:58 AM T [facility] BUN CREATININE RATIO 15.6 6 - 26 04/11/2022 7:[address] [facility] A/G RATIO 1.1 1.0 - 2.0 RATIO 04/11/2022 7:[address] [facility] GFR ESTIMATE >90 >90 ML/MIN/1.7 3 M2 04/11/2022 7:[address] [facility] Comment: NOTE: eGFR is not calculated for patients <18 years of age. This is an estimated GFR calculation using the new CKD EPI creatinine equation without race and so does not require a correction factor for race. This estimated GFR should not be used for calculating drug doses. 04/11/2022 7:05 AM CDT Madelaine Martínez FINANCIAL SYSTEMS DIRECTOR LABORATORY Final Re sult [facility] [address] [place] [address], documented in this encounter Visit Diagnoses Diagnosis Liver replaced by transplant (CMS/HCC HHS/HCC)- Primary Liver replaced by transplant documented in this encounter Care Teams Case Finisher Relationship Specialty Start Date End Date Guero Colunga DO [address] [address] PCP - General INTERNAL MEDICINE 06/16/21 documented as of this encounter
--- OUTSIDE RECORDS SUMMARY | 2024-10-28 06:00 | XMS_ITS | Encounter Summary ---
Author Organization [facility] Address [address] [place] [address]. [place] [address] [place] [address] Care Team Providers Care Dishcloth Folder Name Role Phone Guero Colunga DO Primary Care Provider [phone] Encounter Details Date Type Department Care Team (Late st Contact Info) Description 04/17/2022 7:39 AM CDT - 04/17/2022 11:59 PM CDT Hospital Encounter [facility] [address] [place] [address] Jil Duncan MD [address] [facility] [address] [place] [address] Discharge Disposition: Home or Self Care (Routine [...] CMV DNA QUANT REAL TIME PCR Routine 04/17/2022 7:43 AM CDT Cytomegaloviral disease (CMS/HCC HHS/HCC) documented in this encounter Results * (ABNORMAL) CMV DNA QUANT REAL TIME PCR (04/17/2022 7:43 AM CDT) SPECIMEN SOURCE SERUM 7:44 AM CDT [facility] CMV DNA QN PCR (BLD) 340(HH) IU/mL 04/20/2022 10:49 AM CDT [facility] CMV DNA QUANT PCR (BLD) 2.53(H) log IU/mL 04/20/2022 10:49 AM CDT [facility] Comment: REFERENCE RANGE: NOT DETECTED This test was developed and its analytical performance characteristics have been determined by [facility] [place], [place]. It has not been cleared or approved by the U.S. Food and Drug Administration. This assay has been validated pursuant to the CLIA regulations and is used for clinical purposes. 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
--- OUTSIDE RECORDS SUMMARY | 2024-10-28 06:00 | XMS_ITS | Encounter Summary ---
Author Organization [facility] Address [facility]. [place], [place] [address] [place] [address] Care Team Providers Care Edge Setter Name Role Phone Guero Colunga DO Primary Care Provider [phone] Encounter Details Date Type Department Care Team (Latest Contact Info) Description 07/04/2022 Travel Social History Tobacco Use Types Packs/Day [...] on filedocumented in this encounter Care Teams Edge Setter Relationship Specialty Start Date End Date Guero Colunga DO [address] [facility] [address] [place] [address] PCP - General INTERNAL MEDICINE 06/16/21 documented as of this encounter
--- OUTSIDE RECORDS SUMMARY | 2024-10-28 06:00 | XMS_ITS | Encounter Summary ---
Author Organization [facility] Address [address] [place] [address]. [place] [address] [place] [address] Care Team Providers Care Ob Tech Name Role Phone Guero Colunga DO Primary Care Provider [phone] Encounter Details Date Type Department Care Team (Late st Contact Info) Description 07/04/2022 Orders Only [facility] [address] [place], [place] [id number] Non-Staff, Provider Social History Tobacco Use Types Packs/Day Years [...] as of this encounter Results * (ABNORMAL) GGT, GAMMA GLUTAMYLTRANSFERASE (07/04/2022 9:15 AM CDT) GGT 147(H) 15.0 - 85.0 U/L 07/04/2022 1:05 PM CDT [facility] 07/04/2022 9:15 AM CDT us Provider Non-Staff LABORATORY Final Result [facility] [address] [place] [address], [place] [phone] * (ABNORMAL) COMPREHENSIVE METABOLIC PANEL (07/04/2022 9:15 AM CDT) [facility] GLUCOSE 84 70 - 99 MG/DL 07/04/2022 9:56 AM CDT [facility] BUN 10 7 - 18 MG/DL 07/04/2022 9:56 AM CDT [facility] CREATININE S/P/B 0.91 0.7 - 1.3 MG/DL 07/04/2022 9:56 AM CDT [facility] SODIUM S/P/B 144 136 - 145 MMOL/L 07/04/2022 9:56 AM T [facility] POTASSIUM S/P/B 4.4 3.5 - 5.1 MMOL/L 07/04/2022 9:56 AM T [facility] CHLORIDE S/P/B 110(H) 100 - 108 MMOL/L 07/04/2022 9:56 AM T [facility] CO2 26.0 21 - 32 MMOL/L 07/04/2022 9:56 AM T [facility] CALCIUM S/P/B 8.8 8.5 - 10.1 MG/DL 07/04/2022 9:56 AM T [facility] BILIRUBIN TOTAL S/P/B 2.8(H) 0.2 - 1.2 MG/DL 07/04/2022 9:56 AM T [facility] TOTAL PROTEIN S/P/B 6.2(L) 6.4 - 8.2 G/DL 07/04/2022 9:56 AM T [facility] ALBUMIN S/P/B 3.2(L) 3.4 - 5.0 G/DL 07/04/2022 9:56 AM CDT [facility] AST 122(H) 15 - 37 U/L 07/04/2022 9:56 AM CDT [facility] ALT 108(H) 16 - 60 U/L 07/04/2022 9:56 AM CDT [facility] ALKALINE PHOSPHATASE S/P/B 321(H) 50 - 136 U/L 07/04/2022 9:56 AM CDT [facility] ANION GAP 8.0 5 - 15 MMOL/L 07/04/2022 9:56 AM T [facility] BUN CREATININE RATIO 11.0 6 - 26 07/04/2022 9:56 AM T [facility] A/G RATIO 1.1 1.0 - 2.0 RATIO 07/04/2022 9:56 AM T [facility] GFR ESTIMATE >90 >90 ML/MIN/1.7 3 M2 07/04/2022 9:56 AM T [facility] Comment: [...] CDT us Provider Non-Staff LABORATORY Final Result [facility] [address] [place] [address], * (ABNORMAL) CBC, AUTO, NO DIFF (07/04/2022 9:15 AM CDT) WBC 11.4(H) 4.4 - 11.0 x10'3/uL 07/04/2022 9:41 AM CDT [facility] RBC 3.70(L) 4.50 - 5.90 x10'6/uL 07/04/2022 9:41 AM CDT [facility] HGB 13.2(L) 14.0 - 17.5 G/DL 07/04/2022 9:41 AM CDT [facility] HCT 37.2(L) 41.5 - 50.4 % 07/04/2022 9:41 AM CDT [facility] MCV 100.5(H) 80.0 - 96.0 FL 07/04/2022 9:41 AM CDT [facility] MCH 35.7(H) 26.5 - 31.4 PG 07/04/2022 9:41 AM CDT [facility] MCHC 35.5(H) 31.9 - 34.8 G/DL 07/04/2022 9:41 AM CDT [facility] RDW 16.6(H) 12.3 - 14.3 % 07/04/2022 9:41 AM CDT [facility] PLT 225 151 - 353 x10'3/uL 07/04/2022 9:41 AM CDT [facility] MPV 11.4 9.7 - 11.9 FL 07/04/2022 9:41 AM CDT [facility] 07/04/2022 9:15 AM CDT us Provider Non-Staff LABORATORY Final Result [facility] [address] [place] [address], [place] [phone] * (ABNORMAL) CMV DNA QUANT REAL TIME PCR (07/04/2022 9:14 AM CDT) SPECIMEN SOURCE SERUM 3:40 PM CDT [facility] CMV DNA QN PCR (BLD) 27,355( ) IU/mL 07/08/2022 10:26 AM CDT [facility] CMV DNA QUANT PCR (BLD) 4.44(H) log IU/mL 07/08/2022 10:26 AM CDT [facility] Comment: REFERENCE RANGE: NOT DETECTED This test was developed and its analytical performance characteristics have been determined by [employer] [place], [place]. It has not been cleared or approved by the U.S. Food and Drug Administration. This assay has been validated pursuant to the CLIA regulations and is used for clinical purposes. For additional information, please refer to http://education.Docphin/faq/CMVandEBVPCR (This link is being provided for informational/ educational purposes only.) Test Performed by [facility], [employer] [facility], [address] [place] [address] Severino Chavez M.D., Ph.D., Director of Laboratories , CLIA [id number] 07/04/2022 9:14 AM CDT us Provider Non-Staff LABORATORY Final Result Ofelia Feliz [address] , [place] [phone] [facility] [address] [place] [address], [place] [phone] * TACROLIMUS (07/04/2022 9:14 AM CDT) [facility] TACROLIMUS 6.4 mcg/L 07/07/2022 6:51 AM CDT [facility] Comment: No definitive therapeutic or toxic ranges have been established. Optimal blood drug levels are influenced by type of transplant, patient response, time post- transplant, co-administration of other drugs, and drug formulation. The following trough range is a suggested guideline: ? 5.0-20.0 mcg/L This test was developed and its analytical performance characteristics have been determined by [employer] [place], [place]. It has not been cleared or approved by the U.S. Food and Drug Administration. This assay has been validated pursuant to the CLIA regulations and is used for clinical purposes. 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
--- OUTSIDE RECORDS SUMMARY | 2024-10-28 06:01 | XMS_ITS | Encounter Summary ---
Author Organization [facility] Address [facility]6 [facility]. [place], [place] [address] [place] [address] Care Team Providers Care Academic Tutor Name Role Phone Guero Colunga DO Primary Care Provider [phone] Encounter Details Date Type Department Care Team (Latest Contact Info) Description 04/04/2022 Travel Social History Tobacco Use Types Packs/Day [...] on filedocumented in this encounter Care Teams Academic Tutor Relationship Specialty Start Date End Date Guero Colunga DO 20[address] [facility] [address] [place] [address] PCP - General INTERNAL MEDICINE 06/16/21 documented as of this encounter
--- OUTSIDE RECORDS SUMMARY | 2024-10-28 06:01 | XMS_ITS | Encounter Summary ---
Author Organization [facility] Address [address] [place] [address]. [place] [address] [place] [address] Care Team Providers Care Food And Beverage Analyst Name Role Phone Guero Colunga DO Primary Care Provider [phone] Encounter Details Date Type Department Care Team (Late st Contact Info) Description 04/04/2022 7:09 AM CDT - 04/04/2022 11:59 PM CDT Hospital Encounter [facility] [address] [place] [address] Jil Duncan MD [address] [facility] [place] [address] Discharge Disposition: Home or Self Care (Routine [...] this encounter Medications at Time of Discharge ursodiol 300 MG capsule Take 600 mg by mouth daily. 10/02/2021 documented as of this encounter Plan of Treatment Not on file documented as of this encounter Procedures Procedure Name Priority Date/Time Associated Diagnosis Comments CMV DNA QUANT REAL TIME PCR Routine 04/04/2022 7:20 AM CDT Transplant, organ documented in this encounter Results * (ABNORMAL) CMV DNA QUANT REAL TIME PCR (04/04/2022 7:20 AM CDT) SPECIMEN SOURCE BLOOD 7:22 AM CDT [facility] CMV DNA QN PCR (BLD) REPORT(A) 04/07/2022 7:05 AM CDT [facility] Comment: CMV DNA, QN PCR ?<200 Detected H ?IU/mL ? CMV DNA was detected below 200 IU/mL. Viral load in this range cannot be accurately quantified by the assay. CMV DNA QUANT PCR (BLD) REPORT(A) 04/07/2022 7:05 AM CDT [facility] Comment: CMV DNA, QN PCR ?<2.30 Detected H ?log IU/mL ? REFERENCE RANGE: NOT DETECTED This test was developed and its analytical performance characteristics have been determined by [employer] [place], [place]. It has not been cleared or approved by the U.S. Food and Drug Administration. This assay has been validated pursuant to the CLIA regulations and is used for clinical purposes. For additional information, please refer to http://education.eziCONEX.Traffio/faq/CMVandEBVPCR (This link is being provided for informational/ educational purposes only.) Test Performed by [employer], [employer], [address] [place], [place] Severino Chavez M.D., Ph.D., Director of Laboratories , CLIA [id number] 04/04/2022 7:20 AM CDT Ige Radhames Duncan MD LABORATORY Final Result [employer] [address] [place] [address], [place] [phone] [facility] [address] [place] [address], documented in this encounter Visit Diagnoses Diagnosis Transplant, organ Unspecified organ or tissue replaced by transplant documented in this encounter Care Teams Food And Beverage Analyst Relationship Specialty Start Date End Date Guero Colunga DO [address] [address] PCP - General INTERNAL MEDICINE 06/16/21 documented as of this encounter
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
--- OUTSIDE RECORDS SUMMARY | 2024-10-28 06:01 | XMS_ITS | Encounter Summary ---
Author Organization [facility] Address Critical access hospital6 [facility]. [place], [place] [address] [place] [address] Care Team Providers Care Career Development Manager Name Role Phone Guero Colunga DO Primary Care Provider [phone] Encounter Details Date Type Department Care Team (Latest Contact Info) Description 12/16/2021 Travel Social History Tobacco Use Types Packs/Day [...] suspected to have Coronavirus/COVID-19? No / Unsure 12/16/2021 5:07 PM ROLLING MACHINE TENDER documented as of this encounter Plan of Treatment Not on file documented as of this encounter Visit Diagnoses Not on filedocumented in this encounter Additional Health Concerns Infection Onset Date Last Indicated Resolved Time COVID-19 Rule Out 12/16/2021 12/16/2021 12/16/2021 5:57 PM ROLLING MACHINE TENDER documented as of this encounter Care Teams Career Development Manager Relationship Specialty Start Date End Date Guero Coulnga DO [address] [facility] [address] [place] [address] PCP - General INTERNAL MEDICINE 06/16/21 documented as of this encounter
--- OUTSIDE RECORDS SUMMARY | 2024-10-28 06:01 | XMS_ITS | Encounter Summary ---
Author Organization [facility] Address [facility]6 [facility] [place] [address] [place] [address] Care Team Providers Care Manager Of Software Name Role Phone Guero Colunga DO Primary Care Provider Reason for Visit * Reason Comments Flu Like Symptoms Encounter Details Date Type Department Care Team (Late st Contact Info) Description 12/16/2021 5:11 PM FISH WORM GROWER - 12/16/2021 6:30 PM FISH WORM GROWER Emergency [facility] Emergency Room [address] [place] [address] Jacek Lara, DO [address] [place] [address] Flu Like Symptoms Discharge Disposition: Home or Self Care (Routine [...] Coronavirus/COVID-19? No / Unsure 12/16/2021 5:07 PM FISH WORM GROWER documented as of this encounter Last Filed Vital Signs Vital Sign Reading Time Taken Comments Blood Pressure 117/71 12/16/2021 5:17 PM FISH WORM GROWER Pulse 89 12/16/2021 5:17 PM FISH WORM GROWER Temperature 37.3 ??C (99.2 ??F) 12/16/2021 5:17 PM CS T Respiratory Rate 20 12/16/2021 5:17 PM FISH WORM GROWER Oxygen Saturation 98% 12/16/2021 5:17 PM FISH WORM GROWER Inhaled Oxygen Concentration - - Weight 59 kg (130 lb) 12/16/2021 5:17 PM FISH WORM GROWER Height 172.7 cm (5' 8 ) 12/16/2021 5:17 PM FISH WORM GROWER Body Mass Index 19.77 12/16/2021 5:17 PM FISH WORM GROWER documented in this encounter Discharge Instructions * Attachments The following attachments cannot be sent through Care Everywhere. * Sinusitis in Adults (Nigerian) documented in this encounter Medications at Time of Discharge ursodiol 300 MG capsule Take 600 mg by mouth daily. 10/02/2021 amoxicillin-clavu lanate (AUGMENTIN) 875-125 MG tablet Take 1 tablet (875 mg total) by mouth 2 (two) times daily for 7 days. 14 tablet 12/16/2021 12/23/2021 documented as of this encounter ED Notes * Naila Daniel RN - 12/16/2021 6:30 PM CST Patient D/C in stable condition with medications and instructions given, Patient verbalizes understanding and denies questions or needs at this time, A/Ox4, gait steady WORM GROWER * Jacek Lara DO - 12/16/2021 5:24 PM CST Chief Complaint Chief Complaint Patient presents with ??? Flu Like Symptoms History of Present Illness 26-year-old male presents to emergency department for cough, runny nose, congestion, sore throat, fever/chills for the past 2 to 3 weeks. Patient has been taking nhrn-xsy-vqrwzex medications to help with his symptoms. He took a COVID-19 test earlier today which was negative. No chest pain or shortness of breath. No abdominal pain. Does report diarrhea for the past month. Medical History ALLERGIES: No Known Allergies MEDICATIONS: Prior to Admission medications Medication Sig Start Date End Date Taking? Authorizing Provider amoxicillin-clavulanate (AUGMENTIN) 875-125 MG tablet Take 1 tablet (875 mg total) by mouth 2 (two)times daily for 7 days. 12/16/21 12/23/21 Yes Jacek Lara, DO PAST MEDICAL HISTORY: Past Medical History: Diagnosis [...] Systems Review of Systems Constitutional: Positive for chills, fatigue and fever. HENT: Positive for congestion, rhinorrhea and sore throat. Eyes: Negative for pain and redness. Respiratory: Positive for cough. Negative for shortness of breath and wheezing. Cardiovascular: Negative for chest pain and palpitations. Gastrointestinal: Positive for diarrhea. Negative for abdominal pain, nausea and vomiting. Endocrine: Negative for polydipsia and polyuria. Genitourinary: Negative for dysuria and flank pain. Musculoskeletal: Negative for back pain and gait problem. Skin: Negative for rash and wound. Neurological: Negative for dizziness and weakness. Psychiatric/Behavioral: Negative for agitation and behavioral problems. All other systems reviewed and are negative. Physical Exam Filed Vitals: 12/16/21 1717 BP: 117/71 Pulse: 89 Resp: 20 Temp: 99.2 ??F (37.3 ??C) TempSrc: Tympanic SpO2: 98% Weight: 59 kg (130 lb) Height: 5' [...] Capillary refill takes less than 2 seconds. Neurological: General: No focal deficit present. Mental Status: He is alert and oriented to person, place, and time. Psychiatric: Mood and Affect: Mood normal. Behavior: Behavior normal. Diagnostic Studies / Procedures ELECTROCARDIOGRAMS: No results found for this visit on 12/16/21. LABORATORY STUDIES: Results for orders placed or performed during the hospital encounter of 12/16/21 CORONAVIRUS (COVID-19) ANTIGEN [RAPID IN HOUSE TEST] Specimen: NASAL Result Value Ref Range CORONAVIRUS ANTIGEN IA NEGATIVE NEGATIVE Specimen Type NASAL FIRST TEST NO EMPLOYED IN HEALTHCARE NO SYMPTOMATIC DEFINED BY CDC YES DATE OF SYMPTOM ONSET 20211202 HOSPITALIZATION STATUS NO [facility] NO INFLUENZA A & B Specimen: NASAL Result Value Ref Range Specimen Type NASOPHARYNGEAL SWAB INFLUENZA A NEGATIVE NEGATIVE INFLUENZA B NEGATIVE NEGATIVE IMAGING STUDIES XR CHEST PA+LAT Final Result by User, [id number] (12/16 1748) RADIOGRAPH OF THE CHEST CLINICAL HISTORY: Cough. TECHNIQUE: Frontal and lateral views of the chest. COMPARISON: None. FINDINGS: There are extensive surgical clips in the right upper quadrant seen. Normal sized heart. No consolidation. No effusion. Negative for pneumothorax. Negative for acute osseous abnormality, lytic or blastic lesion. IMPRESSION: 1. No acute process in the chest. Ordered By: JACEK LARA Interpreted By: Eagle Owens, 12/16/2021 5:42 PM ED Course / Medical Decision Making 6:10PM -reevaluated patient, no new complaints. Patient likely has a bacterial sinusitis. Will discharge patient with prescription for antibiotics. Counseled patient to follow-up with primary care physician within 1 week. Return to emergency department symptoms persist, worsen, or other concerns. MDM Number of Diagnoses or Management Options Amount and/or Complexity of Data Reviewed Clinical lab tests: ordered and reviewed Clinical Impression Bacterial sinusitis (Primary) Disposition: Discharge DO Jacek LAN DO 12/16/211814 WORM GROWER * Naila Daniel RN - 12/16/2021 5:18 PM CST Pt. Walk-in to E.D. 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 Pt. Reports he has not f/u with PCP and did home Covid test today and was negative. ) s/s distress noted, respirations even and unlabored. WORM GROWER documented in this encounter Plan of Treatment Not on file documented as of this encounter Procedures Procedure Name Priority Date/Time Associated Diagnosis Comments XR CHEST PA+LAT STAT 12/16/2021 5:35 PM FISH WORM GROWER CORONAVIRUS (COVID-19) ANTIGEN DIRECT OPTICAL STAT 12/16/2021 5:35 PM FISH WORM GROWER INFLUENZA A & B STAT 12/16/2021 5:35 PM FISH WORM GROWER documented in this encounter Results * XR CHEST PA+LAT (12/16/2021 5:35 PM FISH WORM GROWER) Anatomical Region Laterality Modality Chest Radiographic Shilpi ging 12/16/2021 5:42 PM FISH WORM GROWER Impressions 12/16/2021 5:46 PM FISH WORM GROWER IMPRESSION: 1. No acute process in the chest. Ordered By: JACEK LARA Interpreted By: Eagle Owens, 12/16/2021 5:42 PM Narrative 12/16/2021 5:46 PM FISH WORM GROWER RADIOGRAPH OF THE CHEST CLINICAL HISTORY: Cough. TECHNIQUE: Frontal and lateral views of the chest. COMPARISON: None. FINDINGS: There are extensive surgical clips in the right upper quadrant seen. Normal sized heart. No consolidation. No effusion. Negative for pneumothorax. Negative for acute osseous abnormality, lytic or blastic lesion. Procedure Note Eagle Owens MD - 12/16/2021 RADIOGRAPH OF THE CHEST CLINICAL HISTORY: Cough. TECHNIQUE: Frontal and lateral views of the chest. COMPARISON: None. FINDINGS: There are extensive surgical clips in the right upper quadrant seen. Normal sized heart. No consolidation. No effusion. Negative for pneumothorax. Negative for acute osseous abnormality, lytic or blastic lesion. IMPRESSION: 1. No acute process in the chest. Ordered By: JACEK LARA Interpreted By: Eagle Owens, 12/16/2021 5:42 PM Jacek Lara DO GENERAL IMAGING Final Res ult * INFLUENZA A & B (12/16/2021 5:35 PM FISH WORM GROWER) SPECIMEN TYPE NASOPHARYNGEAL SWAB 12/16/2021 5:38 PM FISH WORM GROWER [facility] INFLUENZA A NEGATIVE NEGATIVE 12/16/2021 5:58 PM FISH WORM GROWER [facility] INFLUENZA B NEGATIVE NEGATIVE 12/16/2021 5:58 PM FISH WORM GROWER [facility] NASAL STRUCTURE / Unknown 12/16/2021 5:35 PM FISH WORM GROWER Jacek Lara DO MICROBIOLOGY - GENERAL OR DERABLES Final Result [facility] [address] [place] [address], * CORONAVIRUS (COVID-19) ANTIGEN [RAPID IN HOUSE TEST] (12/16/2021 5:35 PM FISH WORM GROWER) CORONAVIRUS ANTIGEN IA NEGATIVE NEGATIVE 12/16/2021 5:57 PM FISH WORM GROWER [facility] Comment: NEGATIVE RESULTS DO NOT RULE OUT SARS-COV-2 INFECTION AND SHOULD NOT BE USED THE SOLE BASIS FOR TREATMENT OR PATIENT MANAGEMENT DECISIONS, INCLUDING INFECTION CONTROL DECISIONS. NEGATIVE RESULTS SHOULD BE CONSIDERED IN THE CONTEXT OF A PATIENT'S RECENT EXPOSURES, HISTORY AND THE PRESENCE OF CLINICAL SIGNS AND SYMPTOMS CONSISTENT WITH COVID 19. THIS TEST HAS BEEN AUTHORIZED BY THE FDA UNDER AN EMERGENCY USE AUTHORIZATION (EUA) FOR USE BY AUTHORIZED LABORATORIES. SPECIMEN TYPE NASAL 12/16/2021 5:35 PM FISH WORM GROWER [facility] FIRST TEST NO 12/16/2021 5:35 PM FISH WORM GROWER [facility] EMPLOYED IN HEALTHCARE NO 12/16/2021 5:35 PM FISH WORM GROWER [facility] SYMPTOMATIC DEFINED BY CDC YES 12/16/2021 5:35 PM FISH WORM GROWER [facility] DATE OF SYMPTOM ONSET 2021120212/16/2021 5:35 PM FISH WORM GROWER [facility] HOSPITALIZATION STATUS NO 12/16/2021 5:35 PM FISH WORM GROWER [facility] RESIDENT OF [facility] NO 12/16/2021 5:35 PM FISH WORM GROWER [facility] Specimen from nose (specimen) NASAL STRUCTURE / Unknown 12/16/2021 5:35 PM FISH WORM GROWER Jacek Lara DO MICROBIOLOGY - GENERAL OR DERABLES Final Result Performing Organization Address City/State/[facility] Co de Phone Number [facility] [address] [place] [address], documented in this encounter Visit Diagnoses Diagnosis Bacterial sinusitis- Primary Unspecified sinusitis (chronic) documented in this encounter Additional Health Concerns Infection Onset Date Last Indicated Resolved Time COVID-19 Rule Out 12/16/2021 12/16/2021 12/16/2021 5:57 PM FISH WORM GROWER documented as of this encounter Care Teams Manager Of Software Relationship Specialty Start Date End Date Guero Colunga DO [address] [address] PCP - General INTERNAL MEDICINE 06/16/21 documented as of this encounter
--- OUTSIDE RECORDS SUMMARY | 2024-10-28 06:01 | XMS_ITS | Encounter Summary ---
Author Organization [facility] Address [facility]6 [facility] [place] [address] [place] [address] Care Team Providers Care Weather Analyst Name Role Phone Guero Colunga DO Primary Care Provider [phone] Encounter Details Date Type Department Care Team (Late st Contact Info) Description 04/04/2022 7:03 AM CDT - 04/04/2022 7:08 AM CDT Hospital Encounter [facility] [address] [place] [address] Madelaine Martínez, AIDEN [address] [address] Discharge Disposition: Home or Self Care (Routine [...] Associated Diagnosis Comments COMPREHENSIVE METABOLIC PANEL Routine 04/04/2022 7:22 AM CDT Transplant, organ GGT, GAMMA GLUTAMYLTRANSFERASE Routine 04/04/2022 7:20 AM CDT Transplant, organ TACROLIMUS Routine 04/04/2022 7:20 AM CDT Transplant, organ CBC W/DIFF AUTOMATED Routine 04/04/2022 7:19 AM CDT Transplant, organ documented in this encounter Results * (ABNORMAL) COMPREHENSIVE METABOLIC PANEL (04/04/2022 7:22 AM CDT) GLUCOSE 98 70 - 99 MG/DL 04/04/2022 8:05 AM T [facility] BUN 13 7 - 18 MG/DL 04/04/2022 8:05 AM T [facility] CREATININE S/P/B 1.00 0.7 - 1.3 MG/DL 04/04/2022 8:05 AM T [facility] SODIUM S/P/B 140 136 - 145 MMOL/L 04/04/2022 8:05 AM T [facility] POTASSIUM S/P/B 4.8 3.5 - 5.1 MMOL/L 04/04/2022 8:05 AM T [facility] CHLORIDE S/P/B 109(H) 100 - 108 MMOL/L 04/04/2022 8:05 AM T [facility] CO2 27.7 21 - 32 MMOL/L 04/04/2022 8:05 AM T [facility] CALCIUM S/P/B 8.4(L) 8.5 - 10.1 MG/DL 04/04/2022 8:05 AM T [facility] BILIRUBIN TOTAL S/P/B 1.7(H) 0.2 - 1.2 MG/DL 04/04/2022 8:05 AM [facility] Comment: THIS ASSAY IS NOT RECOMMENDED FOR PATIENTS UNDERGOING TREATMENT WITH ELTROMBOPAG DUE TO THE POTENTIAL FOR FALSELY ELEVATED RESULTS. TOTAL PROTEIN S/P/B 6.2(L) 6.4 - 8.2 G/DL 04/04/2022 8:05 AM [facility] ALBUMIN S/P/B 3.1(L) 3.4 - 5.0 G/DL 04/04/2022 8:05 AM [facility] AST 81(H) 15 - 37 U/L 04/04/2022 8:05 AM [facility] ALT 80(H) 16 - 60 U/L 04/04/2022 8:05 AM [facility] ALKALINE PHOSPHATASE S/P/B 344(H) 50 - 136 U/L 04/04/2022 8:05 AM [facility] ANION GAP 3.3(L) 5 - 15 MMOL/L 04/04/2022 8:05 AM [facility] BUN CREATININE RATIO 13.0 6 - 26 04/04/2022 8:05 AM [facility] A/G RATIO 1.0 1.0 - 2.0 RATIO 04/04/2022 8:05 AM [facility] GFR ESTIMATE >90 >90 ML/MIN/1.7 3 M2 04/04/2022 8:05 AM [facility] Comment: NOTE: eGFR is not calculated for patients <18 years of age. This is an estimated GFR calculation using the new CKD EPI creatinine equation without race and so does not require a correction factor for race. This estimated GFR should not be used for calculating drug doses. 04/04/2022 7:22 AM CDT Madelaine Martínez SENIOR DESIGNER LABORATORY Final Re sult [facility] [address] [place] [address], [place] [phone] * TACROLIMUS (04/04/2022 7:20 AM CDT) TACROLIMUS 10.4 mcg/L 04/07/2022 3:29 PM CDT [facility] Comment: No definitive therapeutic or toxic ranges have been established. Optimal blood drug levels are influenced by type of transplant, patient response, time post- transplant, co-administration of other drugs, and drug formulation. The following trough range is a suggested guideline: ? 5.0-20.0 mcg/L This test was developed and its analytical performance characteristics have been determined by [facility] [place], [place]. It has not been cleared or approved by the U.S. Food and Drug Administration. This assay has been validated pursuant to the CLIA regulations and is used for clinical purposes. Test Performed by [facility], [facility], [address] [place] [address] Severino Chavez M.D., Ph.D., Director of Laboratories , CLIA [id number] 04/04/2022 7:20 AM CDT Madelaine Martínez SENIOR DESIGNER LABORATORY Final Re sult [facility] [id number] [place], [place] , * (ABNORMAL) GGT, GAMMA GLUTAMYLTRANSFERASE (04/04/2022 7:20 AM CDT) GGT 105(H) 15.0 - 85.0 U/L 04/04/2022 12:43 PM CDT [facility] 04/04/2022 7:20 AM CDT Madelaine Martínez SENIOR DESIGNER LABORATORY Final Re sult [facility] [address] [place] [address], * (ABNORMAL) CBC W/DIFF AUTOMATED (04/04/2022 7:19 AM CDT) WBC 10.4 4.8 - 10.8 x10'3/uL 04/04/2022 9:29 AM CDT [facility] RBC 4.32(L) 4.50 - 5.90 x10'6/uL 04/04/2022 9:29 AM CDT [facility] HGB 14.8 13.5 - 17.5 G/DL 04/04/2022 9:29 AM CDT [facility] HCT 41.3 41 - 53 % 04/04/2022 9:29 AM CDT [facility] MCV 95.6 80 - 100 FL 04/04/2022 9:29 AM CDT [facility] MCH 34.3(H) 26.0 - 34.0 PG 04/04/2022 9:29 AM CDT [facility] MCHC 35.8 31.0 - 37.0 G/DL 04/04/2022 9:29 AM CDT [facility] RDW 15.1(H) 11.5 - 14.5 % 04/04/2022 9:29 AM CDT [facility] PLT 159 150 - 350 x10'3/uL 04/04/2022 9:29 AM CDT [facility] MPV 10.9(H) 7.0 - 10.4 FL 04/04/2022 9:29 AM CDT [facility] SEG NEUTROPHILS 36(L) 50 - 70 % 11:59 AM CDT [facility] LYMPHOCYTES 38 18 - 42 % 04/04/2022 11:59 AM CDT [facility] MONOCYTES 24(H) 2 - 11 % 04/04/2022 11:59 AM CDT [facility] EOSINOPHILS 2 1.0 - 3.0 % 04/04/2022 11:59 AM CDT [facility] ABS. NEUTROPHILS TOTAL 3.74 1.69 - 7.81 x10'3/uL 04/04/2022 11:59 AM CDT [facility] ABS. LYMPHOCYTES 3.95 0.21 - 5.42 x10'3/uL 04/04/2022 11:59 AM CDT [facility] ABS. MONOCYTES 2.50(H) 0.04 - 1.37 x10'3/uL 04/04/2022 11:59 AM CDT [facility] ABS. EOSINOPHILS 0.21 0.00 - 0.68 x10'3/uL 04/04/2022 11:59 AM CDT [facility] PLT MORPH. NORMAL 04/04/2022 11:59 AM CDT [facility] RBC MORPHOLOGY 1+ 04/04/2022 11:59 AM CDT [facility] Comment: ANISOCYTOSIS 1+ POIKILOCYTOSIS 1+ JACQUI CELLS 04/04/2022 7:19 AM CDT us Madelaine Martínez NP LABORATORY Final Re sult [facility] [address] [place] [address], [place] [phone] documented in this encounter Visit Diagnoses Diagnosis Transplant, organ Unspecified organ or tissue replaced by transplant documented in this encounter Care Teams Weather Analyst Relationship Specialty Start Date End Date Guero Colunga DO [address] [address] PCP - General INTERNAL MEDICINE 06/16/21 documented as of this encounter
--- OUTSIDE RECORDS SUMMARY | 2024-10-28 06:01 | XMS_ITS | Encounter Summary ---
Author Organization [facility] Address [facility]6 [facility]. [place], [place] [address] [place] [address] Care Team Providers Care Fur Mixer Operator Name Role Phone Guero Colunga DO Primary Care Provider [phone] Encounter Details Date Type Department Care Team (Latest Contact Info) Description 06/16/2021 Travel Social History Tobacco Use Types Packs/Day [...] PM CDT documented as of this encounter Plan of Treatment Not on file documented as of this encounter Visit Diagnoses Not on filedocumented in this encounter Care Teams Fur Mixer Operator Relationship Specialty Start Date End Date Guero Colunga DO [address] [address] PCP - General INTERNAL MEDICINE 06/16/21 documented as of this encounter
--- OUTSIDE RECORDS SUMMARY | 2024-10-28 06:02 | XMS_ITS | Encounter Summary ---
Author Organization [facility] Address [address] [place] [address] Phone Care Team Providers Care Ammonia Refrigeration Technician Name Role Phone Amber Montesinos RN Unavailable [phone] Jil Duncan MD Unavailable [phone] Anita Gillespie MD Unavailable [phone] Tabitha Hurley MD Unavailable [phone] Massiel Gastelum MD Unavailable Guero Colunga DO Primary Care Provider [phone] Encounter Details Date Type Department Care Team (Late st Contact Info) Description 09/04/2024 Orders Only [facility] [address] [facility] 8th [place] [address] [place] [address] Adolfo Tapia MD [address] [place] [address] Chronic cough (Primary Dx) Social History Tobacco Use Types Packs/Day Years Used Date Smoking Tobacco: Never Smokeless Tobacco: Current Chew Comments:Chews tobacco on o ccasion Alcohol Use Standard Drinks/Week Comments Yes 0 (1 standard drink = 0.6 oz pur e alcohol) occassional OASIS D0700: Social Isolation Answer Da te Recorded Frequency of experiencing loneliness or isolatio n Never 02/29/2024 [facility] Utilities Answer Date Recorded In the past 12 months has th e electric, gas, oil, or water company threatened to shut off services in your home? No 02/23/2024 Social Connection and Isolat ion Panel [NHANES] Answer Date Recorded In a typical week, how many times do you talk on the phone with family, friends, or neighbors? More than three times a week 02/23/2024 How often do you get togethe r with friends or relatives? More than three times a week 02/23/2024 How often do you attend chur ch or pentecostalism services? 1 to 4 times per year 02/23/2024 Do you belong to any clubs o r organizations such as muslim groups, unions, fraternal or athletic groups, or school groups? No 02/23/2024 How often do you attend meet ings of the clubs or organizations you belong to? Never 02/23/2024 Are you , , di vorced, , never , or living with a partner? Never 02/23/2024 AUDIT-C Answer Date Recorded Q1: How often do you have a drink containing alc ohol? 2-4 times a month 04/28/2024 Q2: How many drinks containi ng alcohol do you have on a typical day when you are drinking? 1 or 2 04/28/2024 Q3: How often do you have si x or more drinks on one occasion? Never 04/28/2024 Overall Financial Resource Strain (CARDIA) Answe r Date Recorded How hard is it for you to pa y for the very basics like food, housing, medical care, and heating? Not very hard 02/23/2024 PHQ-2 Answer Date Recorded PHQ-2 Total Score (If total score is 3 or more points, staff should administer the PHQ-9) 0 10/04/2023 Hunger Vital Sign Answer Date Recorded Within the past 12 months, y ou worried that your food would run out before you got the money to buy more. Never true 02/23/20 Within the past 12 months, t he food you bought just didn't last and you didn't have money to get more. Never true 02/23/2024 PRAPARE - Transportation Answer Date Re corded In the past 12 months, has l ack of transportation kept you from medical appointments or from getting medications? No 01/31 In the past 12 months, has l ack of transportation kept you from meetings, work, or from getting things needed for daily living? No 02/23/2024 Housing Stability Vital Sign Answer Toribio e Recorded In the last 12 months, was t here a time when you were not able to pay the mortgage or rent on time? No 02/23/2024 In the last 12 months, how many places have you lived? 1 02/23/2024 In the last 12 months, was t here a time when you did not have a steady place to sleep or slept in a halfway (including now)? No 02/23/2024 Personal Safety Answer Date Recorded Have you ever been in or are you currently in a harmful physical or emotional relationship or is someone making you feel afraid or unsafe? Denies 04/28/2024 Sex and Gender Information Value Date Recorded Sex Assigned at Not on file Legal Sex Male 6:28 AM SITECORE DEVELOPER Gender Identity Not on file Sexual Orientation Straight 08/22/2021 9: 23 AM CDT documented as of this encounter Plan of Treatment Scheduled Procedures Name Priority Associated Diagnoses Date/Ti me COLONOSCOPY Encounter for screening for colorectal cancer in high risk patient Family history of rectal cancer documented as of this encounter Results * XR Chest Pa Lateral 2 Views (09/15/2024 11:23 AM SITECORE DEVELOPER) Anatomical Region Laterality Modality Body, Chest N/A Computed Radiogr aphy 09/15/2024 11:4 5 AM SITECORE DEVELOPER Impressions 09/15/2024 11:45 AM SITECORE DEVELOPER Normal heart size and mediastinal contours. 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 Previously seen patchy opacities in the left lower lobe retrocardiac region have decreased and are now minimal. ??A new small area of irregularly-shaped airspace opacity is seen in the anterior costophrenic angle on the lateral projection which could be due to infection and/or atelectasis. ??No correlate is seen on the frontal radiograph so it is uncertain whether this is on the right or left. No pleural effusion or pneumothorax. Electronically signed by: Jez Elizondo M.D. Narrative 09/15/2024 11:45 AM SITECORE DEVELOPER EXAMINATION: 2 view chest radiograph COMPARISON: 08/02/2024 Procedure Note Jez Elizondo MD - 09/15/2024 EXAMINATION: 2 view chest radiograph COMPARISON: 08/02/2024 IMPRESSION: Normal heart size and mediastinal contours. 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 Previously seen patchy opacities in the left lower lobe retrocardiac region have decreased and are now minimal. A new small area of irregularly-shaped airspace opacity is seen in the anterior costophrenic angle on the lateral projection which could be due to infection and/or atelectasis. No correlate is seen on the frontal radiograph so it is uncertain whether this is on the right or left. No pleural effusion or pneumothorax. Electronically signed by: Jez Elizondo M.D. Adolfo Tapia MD IMG XR PROCEDURES Final Resu lt documented in this encounter Visit Diagnoses Diagnosis Chronic cough- Primary Cough Chronic cough Cough documented in this encounter Care Teams Ammonia Refrigeration Technician Relationship Specialty Start Date End Date Guero Colunga DO [address] [facility] [address] [address] PCP - General Internal Medicine 08/02/24 Amber Montesinos RN Photonics Technician Transplant 11/17/19 Jil Duncan MD Consulting Physician Infectious Diseases 01/10/20 Anita Gillespie MD Medical Oncologist/Acquisitions Logistics Analyst Medical Oncology 10/07/20 Tabitha Hurley MD [address] [facility] [address] [place] [address] Consulting Physician Rheumatology 10/22/21 Massiel Gastelum MD [address] [place] [address] Consulting Physician Otolaryngology 08/27/22 documented as of this encounter
--- OUTSIDE RECORDS SUMMARY | 2024-10-28 06:02 | XMS_ITS | Encounter Summary ---
Author Organization [facility] Address [address] [place] [address] Phone Care Team Providers Care Automatic Lathe Operator Name Role Phone Amber Montesinos RN Unavailable [phone] Jil Duncan MD Unavailable [phone] Anita Gillespie MD Unavailable [phone] Tabitha Hurley MD Unavailable [phone] Massiel Gastelum MD Unavailable Guero Colunga DO Primary Care Provider [phone] Reason for Referral * MRI/CAT/PET Scan (Routine) - Pending Review Specialty Diagnoses / Procedures Referred By Contac t Referred To Contact Radiology Diagnoses Chronic cough Recurrent pneumonia Procedures CT Chest High Resolution WO Contrast Adolfo Tapia MD [address] [facility] [address] [place] [address] Phone: tel: fax: [address] [address] Referral ID Status Reason Start Date Expiration Date V isits Requested Visits Authorized [id number] Pending Review 09/15/2024 10/15/2025 1 1 ONAL LINES SALES EXECUTIVE Reason for Visit * Consultation (Routine) - Authorized Specialty Diagnoses / Procedures Referred By Contac t Referred To Contact Pulmonary Disease / Pulmonology Diagnoses Chronic cough History of liver transplant (CMS/HCC) (HCC) Recurrent pneumonia Susan Zhou MD [address] [place] [address] Phone: tel: fax: Александр Mcmillan MD [address] [facility] [address] [place] [address] Phone: tel: fax: Referral ID Status Reason Start Date Expiration Date Visits Requested Visits Authorized [id number] Authorized Specialty Services Required 4 09/02/2025 99 99 Encounter Details Date Type Department Care Team (Late st Contact Info) Description 09/15/2024 2:00 PM PERSONAL LINES SALES EXECUTIVE Office Visit [facility] [address] [facility] 8th [place] [address] [place] [id number] Adolfo Tapia MD [address] [place] [address] Chronic cough; History of liver transplant (CMS/HCC) (HCC); Recurrent pneumonia Social History Tobacco Use Types Packs/Day Years Used Date Smoking Tobacco: Never Smokeless Tobacco: Current Chew Comments:Chews tobacco on o ccasion Alcohol Use Standard Drinks/Week Comments Yes 0 (1 standard drink = 0.6 oz pur e alcohol) occassional OASIS D0700: Social Isolation Answer Da te Recorded Frequency of experiencing loneliness or isolatio n Never 02/29/2024 [facility] Utilities Answer Date Recorded In the past 12 months has [employer], gas, oil, or water [employer] threatened to shut off services in your [...] often do you attend chur ch or holiness services? 1 to 4 times per year 02/23/2024 Do you belong to any clubs o r organizations such as samaritan groups, unions, fraternal or athletic groups, or [...] money to buy more. Never true 02/23/20 24 Within the past 12 months, t he [...] place to sleep or slept in a prison (including now)? No 02/23/2024 Personal Safety Answer Date Recorded Have you ever been in or are you currently in a harmful physical or emotional relationship or is someone making you feel afraid or unsafe? Denies 04/28/2024 Sex and Gender Information Value Date Recorded Sex Assigned at Not on file Legal Sex Male 6:28 AM PERSONAL LINES SALES EXECUTIVE Gender Identity Not on file Sexual Orientation Straight 08/22/2021 9: 23 AM CDT documented as of this encounter Last Filed Vital Signs Vital Sign Reading Time Taken Comments Blood Pressure 111/67 09/15/2024 1:47 PM PERSONAL LINES SALES EXECUTIVE Pulse 84 09/15/2024 1:47 PM PERSONAL LINES SALES EXECUTIVE Temperature 36.4 ??C (97.6 ??F) 09/15/2024 1:47 PM CS T Respiratory Rate 18 09/15/2024 1:47 PM PERSONAL LINES SALES EXECUTIVE Oxygen Saturation 99% 09/15/2024 1:47 PM PERSONAL LINES SALES EXECUTIVE Inhaled Oxygen Concentration - - Weight 63.5 kg (140 lb) 09/15/2024 1:47 PM PERSONAL LINES SALES EXECUTIVE Height 170.2 cm (5' 7 ) 09/15/2024 1:47 PM PERSONAL LINES SALES EXECUTIVE Body Mass Index 21.93 09/15/2024 1:47 PM PERSONAL LINES SALES EXECUTIVE documented in this encounter Patient Instructions * Patient Instructions* Adolfo Tapia MD - 09/15/2024 2:00 PM PERSONAL LINES SALES EXECUTIVE Several things going on today Breathing tests are not normal, but likely a reflection of prior infections/surgeries Start flutter valve 10 exhalations 2x/day when ill to help with mucous Continue IVIG replacement Message or Call Shelby with questions: [phone] Return in [address] ONAL LINES SALES EXECUTIVE documented in this encounter Progress Notes * Yulisa Sims MD - 09/15/2024 2:00 PM CST [facility], [address] [place] [address], 8TH FLOOR, [facility], [address] [place], [place] [id number] PROBLEM LIST: Recurrent bacterial pneumonia Multiple courses of antibiotics with admission January 2024 for MSSA pneumonia/bacteremia 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 Nichols is a 29 y.o. male with medical history as above, who presents for an initial evaluation of dyspnea in the setting of recurrent respiratory infectious. He states that until the winter of 2022, he did not have issues with his breathing and had not had issues with significant respiratory infections; however, in the past year he has been admitted twicefor bacterial pneumonia. His first admission was in October 2023, for which he required BiPAP for r espiratory support, as well as chest tube placement for parapneumonic effusion. He recovered with antibiotic treatment, though was again admitted in January 2024 for MSSA pneumonia with bacteremia, forwhich he received an extended course of outpatient IV antibiotics and continued to follow with Infectious Disease. Follow up imaging demonstrated significant improvement in findings of cavitary pneumonia, though he states that he continues to feel that he has not recovered fully from these episodesof pneumonia. He states that prior to this past year, he was able to work and walk long distances without any shortness of breath, but is now limited by dyspnea. He denies any associated wheezing, though does occasionally have a cough that is intermittently productive of clear mucous that is over all substantially improved from presentation for pneumonia earlier this year. He denies any associated hemoptysis, fevers, chills, night sweats or weight loss, and states that he has actually gained some weight since discharge. He denies any exertional chest pain, lightheadedness, palpitations or other notable symptoms. He previously tried Advair, though stopped this, since it was not helping his symptoms. He otherwise denies any concerning symptoms to discuss. He has continued to follow with his Oncology teamfor CVID and has remained on immunoglobulin therapy for many years. He additionally follows with ENT for recurrent sinus infections and recently had tubes placed in April for recurrent otitis media. PAST MEDICAL/SURGICAL HISTORY: As detailed in the problem list above. ALLERGIES: No Known Allergies HOME MEDICATIONS : albuterol HFA (PROVENTIL HFA,VENTOLIN HFA,PROAIR HFA) 90 mcg/actuation inhaler Cutaquig 16.5 % solution fluticasone propion-salmeteroL (ADVAIR DISKUS) 100-50 mcg/dose diskus inhaler furosemide (LASIX) 20 mg tablet letermovir (PREVYMIS) 480 mg tablet spironolactone (ALDACTONE) 50 mg tablet tacrolimus 0.5 mg immediate-release capsule traZODone (DESYREL) 50 mg tablet ursodioL (ACTIGALL) 300 mg capsule valGANciclovir (VALCYTE) 450 mg tablet ciprofloxacin-dexAMETHasone (CIPRODEX) otic suspension guaiFENesin ER (MUCINEX) 600 mg 12 hr tablet sodium chloride 0.9% injection FAMILY HISTORY: No family history of pulmonary or autoimmune disease, or immunodeficiency. SOCIAL HISTORY: Reports occasional cigarette use in high school, though otherwise denies tobacco use. Additionally denies any other inhaled or recreational substances. Works for the local [employer] doing [place],denies any significant occupational exposures. Denies any mold or water damage in the home. No birds or exotic pets. REVIEW OF SYSTEMS: All systems reviewed and otherwise negative other than per HPI. PHYSICAL EXAM: Vitals BP 111/67 Pulse 84 Temp 36.4 ??C (97.6 ??F) (Temporal) Resp 18 Ht 170.2 cm (5' 7 ) Wt 63.5 kg (140 lb) SpO2 99% BMI 21.93 kg/m?? Gen: No acute distress, on room air HEENT: No oropharyngeal erythema/exudates/cobblestoning Neck: Supple, no lymphadenopathy CV: Regular rate/rhythm, no murmurs appreciated Lungs: Clear to auscultation bilaterally, no wheezing/ronchi/crackles, normal work of breathing, noaccessory muscle use Abd: Soft, benign Ext: No edema, clubbing, cyanosis Skin: No significant rashes of visible skin Neuro: Strength grossly intact, non-focal DATA: 6 Minute walk: The patient was saturating 100% on room air at rest. The patient walked 900 ft in 6 minutes and saturation bhanu was 98% on room air. HR went from 87 to 104, and BP remained stable with activity. Concluding Maranda score was 1. Spirometry: Reviewed from today, demonstrates FEV1/FVC 74%, FVC 2.54L/52%, FEV1 1.87/46%, TLC 4.16L/65%, RV 1.41/94%, DLCO 45%, which is consistent with a moderate restrictive ventilatory defect thatis significantly worsened from testing in 2021. AB.44/31/99/21, Hgb 12.7. Imaging: Reviewed CT chest from 08/03/2024, which demonstrates significant improvement in left lowerlobe cavitary pneumonia in comparison to CT from 02/18/2024 with residual tree-in-bud nodularity of both the left lower lobe and right upper lobe, as well as trace left pleural effusion and enlarged me diastinal and retroperitoneal lymph nodes. ASSESSMENT: Dyspnea with moderate restrictive ventilatory defect in the setting of recurrent bacterial pneumonia CVID on immunoglobulin replacement therapy PTLD following liver transplant Status post splenectomy for ITP RECOMMENDATIONS: Over all, we discussed that his pulmonary function testing today demonstrates a restrictive ventilatory defect that is worsened from prior and likely reflects sequelae of recurrent pneumonias. Despite this, he walked an adequate distance today and did not desaturate. We discussed that review of chest imaging demonstrates significant improvement of prior cavitary pneumonia with residual findings of tree-in-bud nodularity. Given lack of associated symptoms, this isless likely to reflect persistent infection and we will plan to repeat imaging in follow up. In general, we discussed that avoiding or preventing infection will be the best strategy to preserve lung function and avoid further decline. Given this as well as lack of obstruction on testing, agree with discontinuation of inhaled corticosteroid. He will continue to follow with Oncology for immunoglobulin replacement and we encouraged him to update his annual COVID/flu boosters and to remain active. We discussed pulmonary rehab as a possibility and he will think about this. We provided him with a flutter valve today to assist with mucous clearance, which he can use twice daily with 10 exhalations. We will plan for follow up in [address] chest or sooner if issues. The patient was seen and staffed with Dr. Tapia, staff physician. Yulisa Sims MD PGY6 Pulmonary and Critical Care Medicine Fellow Cosigned by Adolfo Tapia MD at 09/19/2024 9:46 AM PERSONAL LINES SALES EXECUTIVE ONAL LINES SALES EXECUTIVE ONAL LINES SALES EXECUTIVE Associated attestation - Adolfo Tapia MD - 09/19/2024 9:46 AM PERSONAL LINES SALES EXECUTIVE I have seen and examined the patient. I agree with the findings and plan of care as documented in the resident/fellow's note. My total encounter time on 09/15/2024 was 58 minutes which was spent in the activities documented in the note. This includes time spent prior to the visit and after the visit in direct care of the patient. This time does not include time spent in any separately reportable services. History of multiple medical problems including autoimmune hepatitis status post liver transplant [id number], PTLD status post chemotherapy, and CVID on IVIG replacement who has had recurrent respiratoryinfections. His most recent pulmonary infection was quite severe, and lead to cavitary pneumonia with significant radiographic abnormalities. He has completed appropriate therapies, but is referred to Pulmonary for evaluation of these recurrent respiratory infections. After his most recent pneumonia, he has improved, though has not yet returned back to his previous baseline. He denies ongoing cough, and otherwise reports compliance with his multiple other therapies. Most recent CT scan of the chest from last month reveals evolving changes of prior left lower lobe cavitary pneumonia as well as scattered bilateral solid and ground-glass pulmonary nodules with a broad differential diagnosis. There is persistent mediastinal adenopathy, that is out of proportion tothe pulmonary changes. For now, I have no additional recommendations other than to continue his IVIG replacement. He does have occasional issues with sputum expectoration, and a flutter valve was provided to use 10 times twice daily to help with mucus clearance. I do have concerns regarding the significant adenopathy, and doubt that this is reactive to his pulmonary pathologies. Especially in the setting of his prior PTLD, close monitoring in the future is imperative. Return visit will be in six months with repeat CT scan of the chest, though he knows to reach out if there are any issues or concerns in the interim. documented in this encounter Plan of Treatment Scheduled Orders Name Type Priority Associated Diagnoses Orde r Schedule CT Chest High Resolution WO Contrast Imaging Schedule Routine, Read Routine (OP Routine) Chronic cough Recurrent pneumonia Expected: 03/15/2025, Expires: 09/15/2025 Scheduled Procedures Name Priority Associated Diagnoses Date/Ti me COLONOSCOPY Encounter for screening for colorectal cancer in high risk patient Family history of rectal cancer documented as of this encounter Visit Diagnoses Diagnosis Chronic cough Cough History of liver transplant (CMS/HCC) (HCC) Liver replaced by transplant Recurrent pneumonia Pneumonia, organism unspecified documented in this encounter Orders Outpatient Referral Count Last Ordered Date Fir st Ordered Date AMB REFERRAL TO PULMONOLOGY 1 09/15/2024 documented in this encounter Care Teams Automatic Lathe Operator Relationship Specialty Start Date End Date Guero Colunga DO [address] [place] [address] PCP - General Internal Medicine 08/02/24 Amber Montesinos, SHAILESH Field Marketing Manager Transplant 11/17/19 Jil Duncan MD Consulting Physician Infectious Diseases 01/10/20 Anita Gillespie MD Medical Oncologist/Associate Field Service Engineer Medical Oncology 10/07/20 Tabitha Hurley MD [address] [facility] [address] [place] [address] Consulting Physician Rheumatology 10/22/21 Massiel Gastelum MD [address] [place] [address] Consulting Physician Otolaryngology 08/27/22 documented as of this encounter
--- OUTSIDE RECORDS SUMMARY | 2024-10-28 06:02 | XMS_ITS | Encounter Summary ---
Author Organization [facility] Healthcare Address [address] [place] [address] Care Team Providers Care Laborer Landscape Name Role Phone Amber Montesinos RN Unavailable [phone] Jil Duncan MD Unavailable [phone] Anita Gillespie MD Unavailable [phone] Tabitha Hurley MD Unavailable [phone] Massiel Gastelum MD Unavailable [phone] Guero Colunga DO Primary Care Provider [phone] Encounter Details Date Type Department Care Team (Late st Contact Info) Description 08/03/2024 Telephone [facility] Transplant Liver [address] [facility] [address] [id number] [place], [place] [id number] Amber Montesinos, RN Social History Tobacco Use Types Packs/Day Years Used Date Smoking Tobacco: Never Smokeless Tobacco: Current Chew Comments:Chews tobacco on o ccasion Alcohol Use Standard Drinks/Week Comments Yes 0 (1 standard drink = 0.6 oz pur e alcohol) occassional OASIS D0700: Social Isolation Answer Da te Recorded Frequency of experiencing loneliness or isolatio n Never 02/29/2024 [facility] Utilities Answer Date Recorded In the past 12 months has [employer], gas, oil, or water company threatened to [...] often do you attend chur ch or rastafari services? 1 to 4 times per year 02/23/2024 Do you belong to any clubs o r organizations such as baptist groups, unions, fraternal or athletic groups, or [...] place to sleep or slept in a nursing home (including now)? No 02/23/2024 Personal Safety Answer Date Recorded Have you ever been in or are you currently in a harmful physical or emotional relationship or is someone making you feel afraid or unsafe? Denies 04/28/2024 Sex and Gender Information Value Date Recorded Sex Assigned at Not on file Legal Sex Male 6:28 AM CITY RECORDER Gender Identity Not on file Sexual Orientation Straight 08/22/2021 9: 23 AM CDT documented as of this encounter Miscellaneous Notes * Telephone Encounter - Amber Montesinos RN - 08/03/2024 4:13 PM CDT Placed call to patient to discuss chest xray results. Reviewed chest xray results with Dr. Zhou. Plan to start antibiotics for recurrent pneumonia. Patient stating he was on Levaquin previously andthought he had improved more on Augmentin. Discussed with Dr. Zhou. Plan to start Augmentin 875mgBID x7 days. Will also refer to pulmonology. Patient should have follow up CT Chest wo contrast in about 2 weeks. Pt would like script sent to [facility]. Pulmonology referral entered. Pt wanting CT Chest scheduled at [facility] when he is off work 08/14/24. Spoke to radiology scheduling. Pt scheduled for 08/14/24 in the [facility] at 12:40pm. Arrival time of 12:10pm. No prep required. Reviewed with pt via [employer]. documented in this encounter Plan of Treatment Scheduled Procedures Name Priority Associated Diagnoses Date/Ti me COLONOSCOPY Encounter for screening for colorectal cancer in high risk patient Family history of rectal cancer documented as of this encounter Visit Diagnoses Not on filedocumented in this encounter Care Teams Laborer Landscape Relationship Specialty Start Date End Date Guero Colunga DO [address] [place] [address] PCP - General Internal Medicine 08/02/24 Amber Montesinos, RN Felt Dyeing Machine Tender Transplant 11/17/19 Jil Duncan MD Consulting Physician Infectious Diseases 01/10/20 Anita Gillespie MD Medical Oncologist/Endless Steamer Tender Medical Oncology 10/07/20 Tabitha Hurley MD [address] [place] [address] Consulting Physician Rheumatology 10/22/21 Massiel Gastelum MD [address] [place] [address] Consulting Physician Otolaryngology 08/27/22 documented as of this encounter
--- OUTSIDE RECORDS SUMMARY | 2024-10-28 06:02 | XMS_ITS | Encounter Summary ---
Author Organization [facility] Address [address] [place] [address] Phone Care Team Providers Care Automated Teller Manager Name Role Phone Amber Montesinos RN Unavailable [phone] Jil Duncan MD Unavailable [phone] Anita Gillespie MD Unavailable [phone] Tabitha Hurley MD Unavailable [phone] Massiel Gastelum MD Unavailable Guero Colunga DO Primary Care Provider [phone] Encounter Details Date Type Department Care Team (Late st Contact Info) Description 08/11/2024 Telephone [facility] Oncology [address] [facility] Floor 6 [place] [address] Emili Jones, AIDEN [address] [place] [address] Social History Tobacco Use Types Packs/Day Years Used Date Smoking Tobacco: Never Smokeless Tobacco: Current Chew Comments:Chews tobacco on o ccasion Alcohol Use Standard Drinks/Week Comments Yes 0 (1 standard drink = 0.6 oz pur e alcohol) occassional OASIS D0700: Social Isolation Answer Da te Recorded Frequency of experiencing loneliness or isolatio n Never 02/29/2024 [facility] Utilities Answer Date Recorded In the past [...] often do you attend chur ch or sabianism services? 1 to 4 times per year 02/23/2024 Do you belong to any clubs o r organizations such as catholic groups, unions, fraternal or athletic groups, or [...] place to sleep or slept in a skilled nursing (including now)? No 02/23/2024 Personal Safety Answer Date Recorded Have you ever been in or are you currently in a harmful physical or emotional relationship or is someone making you feel afraid or unsafe? Denies 04/28/2024 Sex and Gender Information Value Date Recorded Sex Assigned at Not on file Legal Sex Male 6:28 AM DIE SINKING 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 Gender Identity Not on file Sexual Orientation Straight 08/22/2021 9: 23 AM CDT documented as of this encounter Miscellaneous Notes * Telephone Encounter - Emili Jones NP - 08/11/2024 3:58 PM CDT Spoke to pt and mother. Chronic cough improving with Augmentin (LLL PNA, per Transplant team) and inhalers (Advair and albuterol). Has chest CT on Wednesday. Pt agreed to see Pulmonology after OV and awaiting appt to be scheduled. documented in this encounter Plan of Treatment Scheduled Procedures Name Priority Associated Diagnoses Date/Ti me COLONOSCOPY Encounter for screening for colorectal cancer in high risk patient Family history of rectal cancer documented as of this encounter Visit Diagnoses Not on filedocumented in this encounter Care Teams Automated Teller Manager Relationship Specialty Start Date End Date Guero Colunga DO [address] [place] [address] PCP - General Internal Medicine 08/02/24 Amber Montesinos RN Helper Metal Hanging Transplant 11/17/19 Jil Duncan MD Consulting Physician Infectious Diseases 01/10/20 Anita Gillespie MD Medical Oncologist/Engineering Lab Technician Medical Oncology 10/07/20 Tabitha Hurley MD [address] [facility] [address] [place] [address] Consulting Physician Rheumatology 10/22/21 Massiel Gastelum MD [address] [place] [address] Consulting Physician Otolaryngology 08/27/22 documented as of this encounter
--- OUTSIDE RECORDS SUMMARY | 2024-10-28 06:02 | XMS_ITS | Encounter Summary ---
Author Organization [facility] Address [address] [facility] [address] [place] [address] Phone Care Team Providers Care Instrument Worker Name Role Phone Amber Montesinos RN Unavailable [phone] Jil Duncan MD Unavailable [phone] Anita Gillespie MD Unavailable [phone] Tabitha Hurley MD Unavailable [phone] Massiel Gastelum MD Unavailable [phone] Guero Colunga DO Primary Care Provider [phone] Reason for Referral * Procedure (Routine) - Closed Specialty Diagnoses / Procedures Referred By Contac t Referred To Contact Diagnoses Chronic cough Procedures Pulmonary Function Test -[facility] Adult PFT Lab- CAM-8D; Spirometry, Spirometry with Bronchodilator, Oxygen Assessment Titration, DLCO, Lung Volumes, ABG with Co-oximetry; Pleth with Airway Resistance; Spirometry; Room Air Adlofo Tapia MD [address] [facility] [address] [place] [address] Phone: tel: fax: Referral ID Status Reason Start Date Expiration Date Visits Re quested Visits Authorized [id number] Closed 08/15/2024 09/14/2025 1 1 Encounter Details Date Type Department Care Team (Late st Contact Info) Description 08/15/2024 Orders Only [facility] Pulmonary [address] [facility] 8th [place] [address] [place] [address] Adolfo Tapia MD [address] [place] [address] Chronic cough (Primary Dx) Social History Tobacco Use Types Packs/Day Years Used Date Smoking Tobacco: Never Smokeless Tobacco: Current Chew Comments:Chews tobacco on o ccasion Alcohol Use Standard Drinks/Week Comments Yes 0 (1 standard drink = 0.6 oz pur e alcohol) occassional OASIS D0700: Social Isolation Answer Da te Recorded Frequency of experiencing loneliness or isolatio n Never 02/29/2024 [facility] Utilities Answer Date Recorded In the past 12 months has e electric, gas, oil, or water company [...] often do you attend chur ch or buddhist services? 1 to 4 times per year 02/23/2024 Do you belong to any clubs o r organizations such as mormon groups, unions, fraternal or athletic groups, or [...] place to sleep or slept in a mcc (including now)? No 02/23/2024 Personal Safety Answer Date Recorded Have you ever been in or are you currently in a harmful physical or emotional relationship or is someone making you feel afraid or unsafe? Denies 04/28/2024 Sex and Gender Information Value Date Recorded Sex Assigned at Not on file Legal Sex Male 6:28 AM NETWORK CONTROL TECHNICIAN Gender Identity Not on file Sexual Orientation Straight 08/22/2021 9: 23 AM CDT documented as of this encounter Plan of Treatment Scheduled Procedures Name Priority Associated Diagnoses Date/Ti me COLONOSCOPY Encounter for screening for colorectal cancer in high risk patient Family history of rectal cancer documented as of this encounter Results * Pulmonary Function Test - (09/15/2024 1:34 PM NETWORK CONTROL TECHNICIAN) FVC PRE 2.54 L [facility] FVC %PRE PRED 52 % [facility] FVC POST 2.46 L [facility] FVC %POST PRED 50 % [facility] FEV1 PRE 1.87 L [facility] FEV1 %PRE PRED 46 % [facility] FEV1 POST 1.99 L [facility] FEV1 %POST PRED 49 % [facility] FEV1/FVC PRE 73.5 % [facility] FEV1/FVC POST 80.8 % [facility] FRC PL PRE 2.[address] [facility] [address]C [address] %PRE PRED 67 % [facility] RV PRE 1.41 L [facility] RV %PRE PRED 94 % [facility] TLC PRE 4.16 L [facility] TLC %PRE PRED 65 % [facility] DLCO PRE 13.6 ml/min/mmH g [facility] DLCO %PRE PRED 45 % [facility] FIO2 % 21.00 % [facility] PaO2 99.0 mmHg [facility] PaCO2 31.0 mmHg [facility] pH 7.44 [facility] A-aDO2 POC 12.0 mmHg [facility] COHb POC 0.8 % [facility] HCO3 21.1 mEq/L [facility] Anatomical Region Laterality Modality PFT 09/15/2024 12:3 9 PM NETWORK CONTROL TECHNICIAN Narrative 09/18/2024 10:49 AM NETWORK CONTROL TECHNICIAN Table formatting from the original result was not included. [facility] Division of Pulmonary & Critical Care Medicine [address] [place] [address]; [place] [address]; [place], [place] [address]; [phone] Pulmonary Function Laboratory Pulmonary Stress Test Simple/Oxygen Assessment Patient: Beka Nichols Date: 09/15/2024 : 1995 Ht: 67 in Wt: 140 lbs Time (min) Distance (ft)/ Crocker O2 L/M SpO2 HR Maranda* BP FEV1 % Pred Rest: ??RA 100 87 0 122/57 1.87 46 % ? Walk/Bike: 1 ??RA 99 95 0 ? 2 ??RA 99 99 0 ? 3 ??RA 98 101 0 ? 4 ??RA 98 104 1 ? 5 ??RA 98 103 1 ? 6 min 0 sec ?? 98 104 1 ? Recovery: 1 ?? 99 99 1 131/69 2.01 49 % 3 ?? 99 92 1 ?*Maranda rate of perceived exertion (1-10 dyspnea scale) ??Yousif, CHEST 2003; 123:1408 Walk Test Summary: Six Minute Walk Distance: 900 ft Six-minute Walk Work [distance (m) x body wt (kg)]: 24989 kg.m (normal >60,000kg.m) Oxygen required to maintain SpO2 greater than 90% during six minutes of walkin L/M Comments: O2A. Interpretation: Breathing room air, SpO2 is normal at rest and during exercise sufficient to increase pulse, SpO2 is stable. On this basis, SpO2 is adequate at rest breathing room air and while walking breathing room air. This level of exercise is associated with no significant change of FEV1. ?? By signing this report, the attending pulmonary physician certifies that he/she has personally reviewed and interpreted the graphic and numerical data associated with this pulmonary function study and has reviewed and /or edited a preliminary draft report and agrees with the written final report. [facility] at[facility]D Procedure:->Spirometry Procedure:->Spirometry with Bronchodilator Procedure:->Oxygen Assessment Titration Procedure:->DLCO Procedure:->Lung Volumes Procedure:->ABG with Co-oximetry Lung Volumes via:->Pleth with Airway Resistance DLCO:->Spirometry Air Type:->Room Air Pulmonary Function Test Interpretation SPIROMETRY: There is a decrease in expiratory airflow at all lung volumes. The FEV1 and FVC are reduced in a pattern suggestive of a restrictive abnormality. There is no significant improvement after inhaling a single dose of albuterol. The inspiratory loop is appropriate for the expiratory flow abnormality. LUNG VOLUMES: TLC measured by plethysmography is decreased. The cause of the decreased ERV is uncertain. DLCO: The diffusing capacity corrected for hemoglobin level (DLCO ADJ) is decreased. A decreased diffusing capacity may be due to loss of pulmonary capillary surface area. Causes include pulmonary fibrosis (altered V/Q relationship), pulmonary vascular disease, emphysema, or interstitial pneumonitis. ARTERIAL BLOOD GAS: There is a compensated respiratory alkalosis. The arterial pO2 is normal at rest. O2 saturation measured by oximetry is normal at rest. Impression: There is a mild restrictive ventilatory defect. There is a moderate impairment of alveolar gas exchange by DLCO. There is no impairment of gas exchange at rest by ABG. There is mild hyperventilation. Compared with most recent study, there has been significant interval worsening of the FVC. The attending pulmonary physician certifies a physician presence in the [facility] Suite during the administration of aerosolized bronchodilator. The attending pulmonary physician certifies that he/she has reviewed and interpreted the graphic and numerical data of this pulmonary function study and agrees with the written final report. The lower limit of normal for PaO2 and %HbO2 is age dependent. However, the [facility] Pulmonary Function Laboratory defines hypoxemia as a PaO2 <56 mm Hg or a %HbO2 <89%. Adolfo Tapia MD PFT ORDERABLES Final Result documented in this encounter Visit Diagnoses Diagnosis Chronic cough- Primary Cough Chronic cough Cough documented in this encounter Care Teams Instrument Worker Relationship Specialty Start Date End Date Guero Colunga DO [address] [facility] [address] [place], [place] [id number] PCP - General Internal Medicine 08/02/24 Amber Mnotesinos, SHAILESH Director Financial Planning Transplant 11/17/19 Jil Duncan MD Consulting Physician Infectious Diseases 01/10/20 Anita Gillespie MD Medical Oncologist/Insurance And Financial Services Agent Medical Oncology 10/07/20 Tabitha Hurley MD [address] [place] [address] Consulting Physician Rheumatology 10/22/21 Massiel Gastelum MD [address] [place] [address] Consulting Physician Otolaryngology 08/27/22 documented as of this encounter
--- OUTSIDE RECORDS SUMMARY | 2024-10-28 06:02 | XMS_ITS | Encounter Summary ---
Author Organization [facility] Address [address] [place] [address] Phone Care Team Providers Care Back Hand Name Role Phone Amber Montesinos RN Unavailable [phone] Jil Duncan MD Unavailable [phone] Anita Gillespie MD Unavailable [phone] Tabitha Hurley MD Unavailable [phone] Massiel Gastelum MD Unavailable [phone] Guero Colunga DO Primary Care Provider [phone] Encounter Details Date Type Department Care Team (Late st Contact Info) Description 08/15/2024 Orders Only [facility] Pulmonary [address] [facility] 8th [place] [address] [place] [address] Adolfo Tapia MD [address] [place] [address] Chronic cough (Primary Dx) Social History Tobacco Use Types Packs/Day Years Used Date Smoking Tobacco: Never Smokeless Tobacco: Current Chew Comments:Chews tobacco on o ccasion Alcohol Use Standard Drinks/Week Comments Yes 0 (1 standard drink = 0.6 oz pur e alcohol) occassional OASIS D0700: Social Isolation Answer Da te Recorded Frequency of experiencing loneliness or isolatio n Never 02/29/2024 [facility] Utilities Answer Date Recorded In the [...] often do you attend chur ch or hoahaoism services? 1 to 4 times per year 02/23/2024 Do you belong to any clubs o r organizations such as judaism groups, unions, fraternal or athletic groups, or [...] place to sleep or slept in a custodial (including now)? No 02/23/2024 Personal Safety Answer Date Recorded Have you ever been in or are you currently in a harmful physical or emotional relationship or is someone making you feel afraid or unsafe? Denies 04/28/2024 Sex and Gender Information Value Date Recorded Sex Assigned at Not on file Legal Sex Male 6:28 AM RN HOSPICE Gender Identity Not on file Sexual Orientation Straight 08/22/2021 9: 23 AM CDT documented as of this encounter Plan of Treatment Scheduled Orders Name Type Priority Associated Diagnoses Orde r Schedule XR Chest Pa Lateral 2 Views Imaging Schedule Routine, Read Routine (OP Routine) Chronic cough 1 Occurrences starting 08/15/2024 until 02/13/2026 Scheduled Procedures Name Priority Associated Diagnoses Date/Ti me COLONOSCOPY Encounter for screening for colorectal cancer in high risk patient Family history of rectal cancer documented as of this encounter Visit Diagnoses Diagnosis Chronic cough- Primary Cough documented in this encounter Care Teams Back Hand Relationship Specialty Start Date End Date Guero Colunga DO [address] [facility] [address] [place] [address] PCP - General Internal Medicine 08/02/24 Amber Montesinos, SHAILESH Tool Design Engineer Transplant 11/17/19 Jil Duncan MD Consulting Physician Infectious Diseases 01/10/20 Anita Gillespie MD Medical Oncologist/Equity Trader Medical Oncology 10/07/20 Tabitha Hurley MD [address] [facility] [address] [place] [address] Consulting Physician Rheumatology 10/22/21 Massiel Gastelum MD [address] [place] [address] Consulting Physician Otolaryngology 08/27/22 documented as of this encounter
--- OUTSIDE RECORDS SUMMARY | 2024-10-28 06:02 | XMS_ITS | Encounter Summary ---
Author Organization [facility] Address [address] [facility] [address] [place] [address] Phone Care Team Providers Care Program Clerk Name Role Phone Amber Montesinos RN Unavailable [phone] Jil Duncan MD Unavailable [phone] Anita Gillespie MD Unavailable [phone] Tabitha Hurley MD Unavailable [phone] Massiel Gastelum MD Unavailable [phone] Guero Colunga DO Primary Care Provider [phone] Reason for Referral * Procedure (Routine) - Closed Specialty Diagnoses / Procedures Referred By Contac t Referred To Contact Diagnoses Chronic cough Procedures Pulmonary Function Test -[facility] Adult PFT Lab- CAM-8D; Spirometry, Spirometry with Bronchodilator, Oxygen Assessment Titration, DLCO, Lung Volumes, ABG with Co-oximetry; Pleth with Airway Resistance; Spirometry; Room Air Adolfo Tapia MD [address] [facility] [address] [place] [address] Phone: tel: fax: Referral ID Status Reason Start Date Expiration Date Visits Re quested Visits Authorized [id number] Closed 08/15/2024 09/14/2025 1 1 ITY MANAGER Reason for Visit * Procedure (Routine) - Closed Specialty Diagnoses / Procedures Referred By Contac t Referred To Contact Diagnoses Chronic cough Procedures Pulmonary Function Test -[facility] Adult PFT [facility]- CAM-8D; Spirometry, Spirometry with Bronchodilator, Oxygen Assessment Titration, DLCO, Lung Volumes, ABG with Co-oximetry; Pleth with Airway Resistance; Spirometry; Room Air Adolfo Tapia MD [address] [facility] [address] [place] [address] Phone: tel: fax: Referral ID Status Reason Start Date Expiration Date Visits Re quested Visits Authorized [id number] Closed 08/15/2024 09/14/2025 1 1 Encounter Details Date Type Department Care Team (Latest Contact Info) Description 09/15/2024 12:35 PM QUALITY MANAGER - 09/15/2024 11:59 PM QUALITY MANAGER Hospital Encounter [facility] Pulmonary [address] [facility] [address] [place] [address] Chronic cough Discharge Disposition: Discharge to home or self care Social History Tobacco Use Types Packs/Day Years Used Date Smoking Tobacco: Never Smokeless Tobacco: Current Chew Comments:Chews tobacco on o ccasion Alcohol Use Standard Drinks/Week Comments Yes 0 (1 standard drink = 0.6 oz pur e alcohol) occassional OASIS D0700: Social Isolation Answer Da te Recorded Frequency of experiencing loneliness or isolatio n Never 02/29/2024 [facility] Utilities Answer Date Recorded In the past 12 months has [employer], gas, oil, or water [employer] threatened to shut off services in your [...] often do you attend chur ch or presybeterian services? 1 to 4 times per year 02/23/2024 Do you belong to any clubs o r organizations such as uatsdin groups, unions, fraternal or athletic groups, or [...] place to sleep or slept in a senior care (including now)? No 02/23/2024 Personal Safety Answer Date Recorded Have you ever been in or are you currently in a harmful physical or emotional relationship or is someone making you feel afraid or unsafe? Denies 04/28/2024 Sex and Gender Information Value Date Recorded Sex Assigned at Not on file Legal Sex Male 6:28 AM QUALITY MANAGER Gender Identity Not on file Sexual Orientation Straight 08/22/2021 9: 23 AM CDT documented as of this encounter Medications at Time of Discharge ciprofloxacin-de xAMETHasone (CIPRODEX) otic suspension Administer 4 drops into each ear 2 (two) times a day 7.5 mL 06/05/2024 Cutaquig 16.5 % solutionIndicati ons:primary immune deficiency disorder Inject 1 Dose under the skin every 30 (thirty) days 02/09/2024 guaiFENesin ER (MUCINEX) 600 mg 12 hr tabletIndication s:Cold Symptoms Take 1 tablet (600 mg total) by mouth 2 (two) times a day 60 tablet 11 02/26/2024 5 sodium chloride 0.9% injectionIndicat ions:Flushing Infuse 10 mL into a venous catheter 3 (three) times a day as needed for line care. Indications: temporary redness of face and neck spironolactone (ALDACTONE) 50 mg tabletIndication s:water retention TAKE 2 TABLETS (100 MG TOTAL) BY MOUTH EVERY MORNING 180 tablet 06/19/2024 tacrolimus 0.5 mg immediate-releas e capsuleIndicatio ns:Prevention of Liver Transplant Rejection Take 1 capsule (0.5 mg total) by mouth every other day 45 capsule 3 01/03/2024 5 traZODone (DESYREL) 50 mg tablet TAKE 1 TABLET BY MOUTH NIGHTLY 90 tablet 3 04/03/2024 letermovir (PREVYMIS) 480 mg tablet Take 1 tablet (480 mg total) by mouth daily 30 tablet 5 04/03/2024 4 albuterol HFA (PROVENTIL HFA,VENTOLIN HFA,PROAIR HFA) 90 mcg/actuation inhaler Inhale 2 puffs q 6h PRN cough, shortness of breath, or wheezing 1 each 1 08/02/2024 4 fluticasone propion-salmeter oL (ADVAIR DISKUS) 100-50 mcg/dose diskus inhaler Inhale 1 puff 2 (two) times a day Rinse mouth with water after use. Do not swallow. 1 each 1 08/02/2024 4 furosemide (LASIX) 20 mg tablet Take 2 tablets (40 mg total) by mouth 2 (two) times a day 120 tablet 1 08/24/2024 4 ursodioL (ACTIGALL) 300 mg capsuleIndicatio ns:Cholelithiasi s Prevention Take 2 capsules (600 mg total) by mouth daily with dinner 180 capsule 3 07/27/2023 4 valGANciclovir (VALCYTE) 450 mg tablet TAKE 2 TABLETS BY MOUTH 2 TIMES A DAY 360 tablet 1 05/12/2024 4 documented as of this encounter Discharge Disposition Disposition Code Departure Means Destination Discharge to home or self care documented in this encounter Plan of Treatment Scheduled Procedures Name Priority Associated Diagnoses Date/Ti pa COLONOSCOPY Encounter for screening for colorectal cancer in high risk patient Family history of rectal cancer documented as of this encounter Procedures Procedure Name Priority Date/Time Associated Diagnosis Comments PULMONARY FUNCTION TEST (PFT) Routine 09/15/2024 1:34 PM QUALITY MANAGER Chronic cough documented in this encounter Results * Pulmonary Function Test - (09/15/2024 1:34 PM QUALITY MANAGER) FVC PRE 2.54 L [facility] FVC %PRE PRED 52 % [facility] FVC POST 2.46 L [facility] FVC %POST PRED 50 % [facility] FEV1 PRE 1.87 L [facility] FEV1 %PRE PRED 46 % [facility] FEV1 POST 1.99 L [facility] FEV1 %POST PRED 49 % [facility] FEV1/FVC PRE 73.5 % [facility] FEV1/FVC POST 80.8 % [facility] FRC PL PRE 2.06 L [facility] FRC PL %PRE PRED 67 % [facility] RV PRE 1.41 L [facility] RV %PRE PRED 94 % [facility] TLC PRE 4.16 L [facility] TLC %PRE PRED 65 % [facility] DLCO PRE 13.6 ml/min/mmH g [facility] DLCO %PRE PRED 45 % [facility] FIO2 % 21.00 % [facility] PaO2 99.0 mmHg [facility] PaCO2 31.0 mmHg [facility] pH 7.44 [facility] A-aDO2 POC 12.0 mmHg [facility] COHb POC 0.8 % [facility] HCO3 21.1 mEq/L [facility] Anatomical Region Laterality Modality PFT 09/15/2024 12:3 9 PM QUALITY MANAGER Narrative 09/18/2024 10:49 AM QUALITY MANAGER Table formatting from the original result was not included. [facility] Division of Pulmonary & Critical Care Medicine [address] [place] [address]; [place] [address]; [place], [place] ??[address]; [phone] Pulmonary Function Laboratory Pulmonary Stress Test Simple/Oxygen [...] 103 1 ? 6 min 0 sec ??RA 98 104 1 ? Recovery: 1 ??RA 99 99 1 131/69 2.01 49 % 3 ??RA 99 92 1 ?*Maranda rate of perceived exertion (1-10 dyspnea scale) ??Yousif, CHEST 2003; 123:1408 Walk Test Summary: Six Minute Walk Distance: 900 ft Six-minute Walk Work [distance (m) x body wt (kg)]: 67350 kg.m (normal >60,000kg.m) Oxygen required to maintain [...] with the written final report. PFT performed at:->[facility] Adult PFT Lab- CAM-8D Procedure:->Spirometry Procedure:->Spirometry with [...] and %HbO2 is age dependent. However, the [facility] Pulmonary Function Laboratory defines hypoxemia as a PaO2 <56 mm Hg or a %HbO2 <89%. Adolfo Tapia MD PFT ORDERABLES Final Result documented in this encounter Visit Diagnoses Diagnosis Chronic cough Cough documented in this encounter Care Teams Program Clerk Relationship Specialty Start Date End Date Guero Colunga DO [address] [place] [address] PCP - General Internal Medicine 08/02/24 Amber Montesinos, RN Fleet Sales Associate Transplant 11/17/19 Jil Duncan MD Consulting Physician Infectious Diseases 01/10/20 Anita Gillespie MD Medical Oncologist/Feed Project Engineer Medical Oncology 10/07/20 Tabitha Hurley MD [address] [facility] [address] [place], [place] [id number] Consulting Physician Rheumatology 10/22/21 Massiel Gastelum MD [address] [place], [place] [id number] Consulting Physician Otolaryngology 08/27/22 documented as of this encounter
--- OUTSIDE RECORDS SUMMARY | 2024-10-28 06:02 | XMS_ITS | Referral Summary ---
Author Organization [facility] Address [address] [place] [address] Care Team Providers Care Java Designer Name Role Phone Amber Montesinos RN Unavailable [phone] Jil Duncan MD Unavailable [phone] Anita Gillespie MD Unavailable [phone] Tabitha Hurley MD Unavailable [phone] Massiel Gastelum MD Unavailable [phone] Guero Colunga DO Primary Care Provider [phone] Encounters Date Type Department Care Team Description 10/20/2024 Orders Only [facility] Oncology [address] [facility] Floor 6 [place] [phone] Emili Jones NP 10/02/2024 8:20 AM SLOTTER OPERATOR Telemedicine [facility] Infectious Diseases [address] [facility] [address] [place] [phone] Lisandra Auguste NP Cytomegalovirus infection, unspecified cytomegaloviral infection type (HCC) (Primary Dx) 09/26/2024 Orders Only [facility] - [facility] ENT [address] [facility] Medical Office Building [address] [place] [phone] Massiel Gastelum MD 09/15/2024 Documentation [facility] Transplant Liver [address] [facility] [address] [place] [address] Amber Montesinos, SHAILESH 09/15/2024 11:19 AM SLOTTER OPERATOR - 09/15/2024 11:59 PM SLOTTER OPERATOR Hospital Encounter [facility] [place] [facility] ([facility]) [address] [place] [address] Chronic cough Discharge Disposition: Discharge to home or self care 09/15/2024 12:35 PM SLOTTER OPERATOR - 09/15/2024 11:59 PM SLOTTER OPERATOR Hospital Encounter [facility] Pulmonary [address] [facility] [address] [place] [address] Chronic cough Discharge Disposition: Discharge to home or self care 09/15/2024 2:00 PM SLOTTER OPERATOR Office Visit [facility] Pulmonary [address] [facility] 8th [place] [address] [place] [address] Adolfo Tapia MD Chronic cough; History of liver transplant (CMS/HCC) (HCC); Recurrent pneumonia 09/04/2024 Orders Only [facility] Pulmonary [address] [facility] 8th [place] [address] [place] [address] Adolfo Tapia MD Chronic cough (Primary Dx) 08/25/2024 Telephone [facility] Advanced Medicine ([facility]) - [facility] ENT [address] [facility] Advanced [facility] 11th [place] [address] [place] [address] Danae Frazier, MARGRET 08/24/2024 Documentation [facility] Transplant Liver [address] [facility] [address] [place] [address] Amber Montesinos, SHAILESH 08/24/2024 Orders Only [facility] and [facility] Transplant Liver [address] [facility] [phone] [place] [address] Amber Montesinos, SHAILESH 08/22/2024 Telephone [facility] Transplant Liver [address] [facility] [address] [place] [address] Amber Montesinos RN 08/15/2024 Orders Only [facility] Pulmonary [address] [facility] 8th [place] [address] [place] [address] Adolfo Tapia MD Chronic cough (Primary Dx) 08/15/2024 Orders Only [facility] Pulmonary [address] [facility] 8th [place] [address] [place] [address] Adolfo Tapia MD Chronic cough (Primary Dx) 08/14/2024 7:20 AM CDT Lab [facility] ([facility]) [address] [place] [phone] 08/14/2024 7:05 AM CDT Lab [facility] ([facility]) [address] [place] [phone] 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HCC); History of liver transplant (CMS/HCC) (HCC) 08/14/2024 7:03 AM CDT - 08/14/2024 11:59 PM CDT Hospital [facility] [place] [facility] ([facility]) [address] [place] [address] Chronic cough; History of liver transplant (CMS/HCC) (HCC); Recurrent pneumonia Discharge Disposition: Discharge to home or self care 08/11/2024 Telephone [facility] Oncology [address] [facility] Floor 6 [place] [phone] Emili Jones NP 08/03/2024 Telephone [facility] and [facility] Transplant Liver [address] [facility] [address] [phone] [place] [address] Amber Montesinos RN 08/03/2024 Telephone [facility] and [facility] Transplant Liver [address] [facility] [address] Mailstop [phone] [place] [address] Amber Montesinos RN 08/02/2024 9:23 AM CDT - 08/02/2024 11:59 PM CDT Hospital Encounter [facility] ([facility]) [address] [place] [address] Susan Zohu MD History of liver transplant (CMS/HCC) (HCC); Chronic cough Discharge Disposition: Discharge to home or self care 08/02/2024 7:15 AM CDT Lab [facility] [place] [facility] Collection [address] [facility] Floor [address] [place] [address] 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 Mixed conductive and sensorineural hearing loss of both ears (Primary Dx) 08/02/2024 9:00 AM CDT Office Visit [facility] Gasteroenterology [address] [facility] 12th [place] [address] [place] [address] Susan Zhou MD Chronic cough (Primary Dx); History of liver transplant (CMS/HCC) (HCC); 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HCC); Encounter for therapeutic drug level monitoring 08/02/2024 7:45 AM CDT Office Visit [facility] Oncology [address] 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) (Primary Dx) from Last 3 Months Allergies No known active allergies Medications tacrolimus 0.5 mg immediate-rel ease capsuleIndica tions:Prevent ion of Liver Transplant Rejection Take 1 capsule (0.5 mg total) by mouth every other day 45 capsule 3 01/03/20 24 025 Active Cutaquig 16.5 % solutionIndic ations:primar y immune deficiency disorder Inject 1 Dose under the skin every 30 (thirty) days 02/09/20 24 Active guaiFENesin ER (MUCINEX) 600 mg 12 hr tabletIndicat ions:Cold Symptoms Take 1 tablet (600 mg total) by mouth 2 (two) times a day 60 tablet 11 02/26/20 24 025 Active Additional Information Patient not taking.Informant: Self, Reported on 09/15/2024 sodium chloride 0.9% injectionIndi cations:Flush ing Infuse 10 mL into a venous catheter 3 (three) times a day as needed for line care. Indications: temporary redness of face and neck Active traZODone (DESYREL) 50 mg tablet TAKE 1 TABLET BY MOUTH NIGHTLY 90 tablet 3 04/03/20 24 Active ciprofloxacin -dexAMETHason e (CIPRODEX) otic suspension Administer 4 drops into each ear 2 (two) times a day 7.5 mL 06/05/20 24 Active Additional Information Patient not taking.Reported on 09/15/2024 spironolacton e (ALDACTONE) 50 mg tabletIndicat ions:water retention TAKE 2 TABLETS (100 MG TOTAL) BY MOUTH EVERY MORNING 180 tablet 06/19/20 24 Active ursodioL (ACTIGALL) 300 mg capsule TAKE 2 CAPSULES BY MOUTH DAILY WITH DINNER 180 capsule 3 09/19/20 24 Active furosemide (LASIX) 20 mg tablet TAKE 2 TABLETS BY MOUTH 2 TIMES A DAY. 360 tablet 1 10/02/20 24 Active valGANciclovi r (VALCYTE) 450 mg tablet Take 1 tablet (450 mg total) by mouth 2 (two) times a day 60 tablet 11 10/02/20 24 025 Active letermovir (PREVYMIS) 480 mg tablet Take 1 tablet (480 mg total) by mouth daily Active albuterol HFA (PROVENTIL HFA,VENTOLIN HFA,PROAIR HFA) 90 mcg/actuation inhaler INHALE 2 PUFFS BY MOUTH EVERY 6 HOURS NEEDED FOR COUGH, SHORTNESS OF BREATH, OR WHEEZING 6.7 each 2 10/18/20 24 Active Wixela Inhub 100-50 mcg/dose diskus inhaler INHALE 1 PUFF TWICE A DAY -RINSE MOUTH WITH WATER AFTER USE. DO NOT SWALLOW. 60 each 1 10/23/20 24 Active letermovir (PREVYMIS) 480 mg tablet Take 1 tablet (480 mg total) by mouth daily 30 tablet 5 04/03/20 24 024 valGANciclovi r (VALCYTE) 450 mg tablet TAKE 2 TABLETS BY MOUTH 2 TIMES A DAY 360 tablet 1 05/12/20 24 024 Discontinued(Re order) fluticasone propion-salme teroL (ADVAIR DISKUS) 100-50 mcg/dose diskus inhaler Inhale 1 puff 2 (two) times a day Rinse mouth with water after use. Do not swallow. 1 each 1 08/02/20 24 024 Discontinued albuterol HFA (PROVENTIL HFA,VENTOLIN HFA,PROAIR HFA) 90 mcg/actuation inhaler Inhale 2 puffs q 6h PRN cough, shortness of breath, or wheezing 1 each 1 08/02/20 24 024 Discontinued furosemide (LASIX) 20 mg tablet Take 2 tablets (40 mg total) by mouth 2 (two) times a day 120 tablet 1 08/24/20 24 024 Discontinued amoxicillin-c lavulanate (AUGMENTIN) 875-125 mg per tablet Take 1 tablet by mouth 2 (two) times a day for 14 days 28 tablet 09/26/20 24 024 ofloxacin (FLOXIN) 0.3 % otic solution Administer 5 drops into the left ear daily for 7 days 5 mL 09/26/20 24 024 Active Problems Patient Care Coordination No te Formatting of this note migh t be different from the original. Labs as of 09/11/23: [facility] P: [phone] F: [phone] Labs: [facility]- in [facility] everywhere Problem Noted Date Diagnosed Date Chronic otitis media of both ears with effusion 04/12/2024 History of splenectomy 03/21/2024 Assessment & Plan (03/21/2024 2:28 PM CDT): - PCV20 today - Also needs meningococcal conjugate and men B vaccines (will give at future visit). - I do not see any documentation for HiB vaccine, will forward note to BMT team also Bacteremia 02/21/2024 Assessment & Plan (03/21/2024 2:26 PM CDT): - MSSA bacteremia, no vegetations on echo. D/c on IV cefazolin but now on dalbavancin due to PICC issues. Received dose of dalbavancin on 03/14, scheduled for 2nd dose on 03/28 at [facility] infusion center in [place], [place] to complete planned 6 weeks of therapy Assessment & Plan (02/21/2024 4:11 PM CDT): Arrived in septic shock requiring low-dose levophed for <24 hours. - BCx 02/17 and 02/18 BC +MSSA /, source likely PNA versus sinusitis with workup pending - s/p Azithro, 02/18 changed Zosyn to Cefazolin and discontinued Linezolid as d/w ID - ID consulted, currently on Cefazolin pending culture clearance (s/p linezolid, vanc, cefepime, flagyl, azithro) - Daily blood cultures till clear - TTE pending Pneumonia of left lung due t o infectious organism, unspecified part of lung 02/18/2024 Assessment & Plan (03/21/2024 2:25 PM CDT): - Improving cough and shortness of breath, no fevers or chills. Overall feels better. Lung sounds slightly diminished to LLL - Repeat chest X-ray today Shock ([facility] 02/18/2024 Assessment & Plan (02/20/2024 12:30 PM CDT): Likely sepsis in setting of MSSA pneumonia, MSSA bacteremia -Lactate 3.3-> 3.4 s/p 3L LR, 500ml LR on admit to ICU for lactate 5, s/p Cefe, Flagyl, Vanc, started Levophed in ED, work up pending. -CT Chest with LLL cavitary pneumonia, resolution of RLL pna, bilateral effusions L >R -off levophed 02/18 -will continue Azithro for 3 day course, 02/18 changed Zosyn to Cefazolin and discontinued Linezolid as d/w ID -02/17 and 02/18 BC +MSSA, repeat BC sent 02/19, will obtain daily surveillance BC until clear, discontinued RIJ CVC -TTE pending -fungal work up pending -Transplant Infectious Disease team following, appreciate recs Bicytopenia 02/18/2024 Assessment & Plan (02/21/2024 5:54 AM CDT): - Hgb baseline 10s-12s. Transferred to floor w/ 11.9. No signs of bleeding. Hgb goal 7.0, supportive transfusions, maintain type/screen. - TCP is new this admission, baseline normal, now between 70-94. Most likely secondary to sepsis, bacteremia. Plt goal 10, or 50 if bleeding. Assessment & Plan (02/20/2024 12:22 PM CDT): Hgb 11.2. Platelets 75 -goal Hgb > 7 -goal Plt > 10 Hypocalcemia 02/18/2024 Assessment & Plan (02/18/2024 1:53 PM CDT): Due to poor PO intake -goal ionized sammy > 4.5 Hyponatremia 02/18/2024 Assessment & Plan (02/20/2024 12:25 PM CDT): likely 2/2 portal hypertension. Na 127. -urine osm 168, urine Na <20, serum osm 278 -Na improving, now 139 Hypoalbuminemia 02/18/2024 Assessment & Plan (02/18/2024 1:54 PM CDT): Albumin 2.5. 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 Now on monthly Cutaquig, last dose 02/13. - Med onc c/s. Assessment & Plan (02/20/2024 10:19 AM CDT): on IVIg, last infusion 10/09/23; now on monthly SQ Cutaquig 16.5%, last dose 4/15/24 -follow up with MedOnc team Portal hypertension (CMS/HCC) 02/18/2024 Assessment & Plan (02/20/2024 12:25 PM CDT): tBili 3.9, Alk phos 175, AST 69 -consider RUQ US -will restart home lasix and spironolactone as needed History of pulmonary embolus (PE) 02/18/2024 Assessment & Plan (02/21/2024 5:54 AM CDT): Remote. No longer on a/c. Assessment & Plan (02/18/2024 2:02 PM CDT): 10/19/2017 -no longer on anticoagulation Chronic cough 11/29/2023 Assessment & Plan (11/29/2023 1:08 PM SLOTTER OPERATOR): - Recent hospitalization where he was found to have exudative pleural effusion s/p chest tube placement. Continued cough since hospitalization - Repeat chest x-ray today Addendum: Chest x-ray resulted after patient left clinic and shows a new right mid lung wedge-shaped opacity concerning for infection vs pulmonary embolism. Dr. Duncan called and spoke with patient, will arrange for CT PE chest later this week at [facility]. He will call with any worsening symptoms. Edema of left lower extremity 10/11/2023 Assessment & Plan (10/12/2023 6:24 PM SLOTTER OPERATOR): Nontender and he has been preferentially leaning onto the left side (due to R chest tube), but he has been largely immobile for quite some time and has an active infection which increases his risk for VTE. - Venous doppler showed no evidence of acute DVT - Spot dose IV Lasix (normally takes 20 mg PO) and assess response Parapneumonic effusion 10/11/2023 Assessment & Plan (10/13/2023 10:55 AM SLOTTER OPERATOR): - Pt developed respiratory failure in setting of pneumonia, loculated parapneumonic effusion and rhino/enterovirus. Treated with antibiotics. Required BiPAP, now on room air. - Chest tube removed 10/12. CXR 10/12 stable. - Switch cefepime to amox-clavulanate 875 mg-125 mg BID and continue through 10/17 then stop. - Sr galactomannan negative. Fungal and mold cultures 10/07 NGTD. - Per ID, continue to monitor off fungal treatment given improvement with cefepime. - Repeat CT in 3-[address] to reassess lung opacities. Assessment & Plan (10/11/2023 5:06 PM SLOTTER OPERATOR): Mr. Nichols is a 28 yo M w/ PMH of autoimmune hepatitis s/p OLT in 1998 now complicated by PTLD diagnosed in 2017 s/p R-CHOP then DA-EPOCH-R and IT MTX, hx of refractory ITP s/p splenectomy, and recent hospitalization for E. coli bacteremia who presents with cough and concern for PNA complicated by Rt parapneumonic effusion. Patient's effusion is likely most consistent with a parapneumonic effusion. Fluid was exudative (protein 3.3, LDH 306) but with normal glucose and negative cultures. Patient is improving on antibiotics. - Pulled chest tube at bedside today - Agree with ID concerning antimicrobials and duration Acute respiratory failure with hypoxia (CMS/HCC) 10/09/2023 Assessment & Plan (02/21/2024 4:10 PM CDT): Arrived with 2L oxygen requirement iso shock, PNA, rhinovirus. - CT w/ left lower lobe cavitary PNA with left pleural effusion, increased from priors - LEDs negative - RVP +rhino/enterovirus - antibiotics as elsewhere for bacteremia Assessment & Plan (02/20/2024 9:58 AM CDT): Pneumonia vs volume overload vs other. RR 40s. CXR with RLL pneumonia. CT chest with left lower lobe cavitary pneumonia with a left pleural effusion. -RVP + rhinovirus. -S/p Azithro/Cefe/Flagyl/Vanc in ED -will continue Azithro for 3 day course, 02/18 changed Zosyn to Cefazolin and discontinued Linezolid as d/w ID -MRSA swab neg -legionella neg -LE duplex scan pending -wean oxygen for goal SpO2 > 92% Assessment & Plan (10/12/2023 6:21 PM SLOTTER OPERATOR): - secondary to pneumonia and loculated parapneumonic effussion. RPP also positive for rhino/enterovirus. He was treated with antibiotics and R sided chest tube. He initially required BIPAP but has been weaned to RA. - ID consulted for + serum galactomannan. Recs to repeat galactomannan and send fungal cultures on pleural fluid to determine clinical significance. Follow up mold blood cx as well. - IP removed chest tube on 10/11 Acute superficial DVT of left upper extremity Assessment & Plan (08/28/2023 1:44 PM CDT): - Asymmetric LUE edema. Doppler positive for acute superficial VTE Rhinovirus 08/27/2023 Assessment & Plan (02/18/2024 1:51 PM CDT): -supportive care -see respiratory failure Assessment & Plan (08/27/2023 8:20 AM CDT): Pt with mild shortness of breath and productive cough. RVP + rhinovirus. Doing well on RA - Supportive care Hypocalcemia and hypomagnesemia 08/27/2023 Assessment & Plan (08/28/2023 1:50 PM CDT): Likely 2/2 foscarnet. Per report, pt with tingling sensation on LUE and neck. Trop negative and EKG no signs of ischemia. Patient clarified numbness around mouth and bilateral hands most likely symptomatic hypocalcemia. - Received repletion for mg. Started mg-ox 400 q12 hrs. - Continue IV Ca gluc prn as needed. CTM Ca and replete as needed. - CTM Ca, K, Mg and phos and replete as needed Gram-negative bacteremia 08/24/2023 Assessment & Plan (08/28/2023 1:44 PM CDT): Pt reports fevers at home, fatigue, diarrhea, jaundice, abdominal distension and BLE edema. Afebrile and HDS on admission. No lines. Source unclear but suspicion for translocation from enterocolitis. Also potential pna. - CT showed new peribronchovascular opacities within the right lung read as potential organizing pneumonia (inflammatory vs infectious) and new wall thickening of the ascending colon and terminal ilium compatible with enterocolitis enterocolitis (inflammatory vs infectious). - MRI/MRCP also showing findings concerning for multifocal pne, right colon and terminal enterocolitis. Concern for pyelo mentioned but UA unremarkable. - Bcx (08/23) fortune-sensitive E coli x 2 samples. Bcx 08/24 and 08/26 NGTD clear - ID following. - D/c vanc (08/23- 08/24). Zozyn (08/23- 08/26) -> ceftriaxone and flagyl (08/26- ). - Unable to obtain cultures from liver biopsy as samples already on formalin Macrocytic anemia 08/23/2023 Assessment & Plan (08/24/2023 1:42 PM CDT): - B12 WNL. Folate pending. Ansarca 08/23/2023 Assessment & Plan (09/02/2023 3:41 PM CDT): Pt with progressive BLE edema and ascites over past few weeks. Transaminitis and hyperbilirubinemia. Albumin 3.1. Unclear etiology. - Hepatology consulted. Do not think this is related to liver disease. Liver bx result pending - UA without proteinuria. - TTE with bubbles fairly unremarkable. EF 62%, diastolic function normal, no significant valve disease. - BLE dopplers negative for acute DVT. - Procedure team evaluated patient for paracentesis 08/27 but not enough fluid - Lasix 60 IV BID-> lasix 40 and spironolactone 100mg Jaundice 08/23/2023 Colitis 08/23/2023 Eustachian tube dysfunction, bilateral 3 Assessment & Plan (08/23/2023 6:28 PM CDT): status post endoscopic sinus surgery (bilateral maxillary antrostomy, total ethmoidectomy, frontal sinusotomy, and sphenoidotomy) and septoplasty on 08/28/2022 for chronic rhinosinusitis and recurrent acute exacerbations. Subcutaneous nodule of right lower extremity 06/2022 Assessment & Plan (07/09/2022 11:14 PM CDT): Indurated soft tissue nodule with overlying erythema, mildly tender. First noticed ~1 month ago. Denies any arthopod bites or known exposure or trauma. - Consider ultrasound to assess for drainable collection - Dermatology consult for potential biopsy, possible disseminated infection Immunocompromised 05/13/2022 Chronic pansinusitis 02/17/2022 Assessment & Plan (02/21/2024 5:51 AM CDT): Follows w/ ENT as outpatient. Most recently completed outpatient course of levofloxacin -> augmentin. - Now w/ MSSA bacteremia, sinus source possible - MRSA nares negative - antibiotics: see #Bacteremia Assessment & Plan (02/20/2024 12:23 PM CDT): Follows with ENT. Prescribed Levaquin on 02/06 and switched to Augmentin after called that swab was MSSA. Also on prednisone -antibiotics as described -s/p 12 day course of prednisone 10mg per ENT Myalgia 10/08/2020 On antiviral therapy 03/11/2020 Assessment & Plan (03/12/2020 9:29 AM CDT): - Continue weekly CBC and CMP - Continue to monitor for adverse effects of antiviral Elevated LFTs 02/15/2020 Assessment & Plan (11/29/2023 1:05 PM SLOTTER OPERATOR): - LFTs all improving. No jaundice, abdominal distension, or edema on exam today Assessment & Plan (09/02/2023 3:49 PM CDT): He has been having abnormal liver enzymes: predominantly cholestatic pattern with rising ALT 04/2022. 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 - Pt jaundiced, ascites, BLE edema. ALT and AST slightly elevated but his bilirubin is higher than baseline. Remain relatively stable. - CT scan showed postsurgical changes of liver transplant. No suspicious liver lesion. Oni biliary duct dilation. There is mild pneumobilia. Portal and superior mesenteric veins are patent. - MRI/MRCP showed stable postsurgical changes of hepatic transplantation without biliary ductal dilation or focal hepatic abnormality. Right colon and terminal ileum enterocolitis. - Hepatology following. Low suspicion for acute liver transplant rejection. Suspect colitis. - EUS with liver biopsy 08/27. Path pending. - Bili/LFTs downtrended and have stabilized. CTM. - csope wed with negative path - Continue home Ursodiol Assessment & Plan (07/09/2022 11:15 PM CDT): Recently w/ elevated LFTs, now appear down-trending. Low suspicion for adenovirus or CMV contributing given improvement -Trend LFTs Assessment & Plan (02/15/2020 2:19 PM CDT): Recently w/ elevated LFTs, now appear down-trending. Work-up w/ MRCP, biopsy +necrosis, felt possible liver abscess and has completed 14d course of Cipro/Flagyl. Low suspicion r/t CMV viremia per liver team. -Trend LFTs Cytomegalovirus (CMV) viremia (CMS/HCC) 12/21/19 20 Assessment & Plan (06/26/2024 2:19 PM CDT): - Overall doing well with no acute concerns today. Continues to have persistent cough but states it has improved. Remains on letermovir and valcyte - Discussed with patient that plan will be to keep him on antivirals for 12 months from date of being on foscarnet. We will reevaluate at next ID visit and determine if we can stop one or both of his antiviral medications - Today he can decrease valcyte to 450 mg PO BID. He will continue on letermovir - Labs today: CBC, CMP, CMV PCR - Follow up with transplant team, BMT, and ENT as scheduled Assessment & Plan (03/21/2024 2:27 PM CDT): - Repeat CMV PCR today along with CBC and CMP - Continue letermovir and valganciclovir Assessment & Plan (02/21/2024 5:50 AM CDT): Patient with chronic CMV with multiple resistance patterns. CMV viremia subpopulations w/ heterogenous resistance (h/o ganciclovir, cidofovir, maribavir) - Transplant ID consulted, plan to cont valganciclovir and letermovir - appreciate ID recs, assistance Assessment & Plan (02/20/2024 10:20 AM CDT): -CMV + DNA 215 IU/ml -Transplant ID following -cont valganciclovir and letermovir Assessment & Plan (11/29/2023 1:05 PM SLOTTER OPERATOR): - Clinically doing well on exam today overall except for continued cough. Last CMV PCR 10/21 was 507. His only complaint today is a persistent cough. - Continue valganciclovir 900 mg PO BID and letermovir 480 mg PO daily for treatment of CMV. If CMV PCR becomes consistently undetectable will consider decreased dose of valganciclovir for maintenance. - Repeat CMV PCR monthly. Standing orders faxed to [facility] in [place], [place]. Printed orders also given to Beka's mother Assessment & Plan (04/20/2023 12:35 PM CDT): - Patient reports overall feeling well. Does have some chronic cervical lymphadenopathy along with intermittent diarrhea and chronic sinus pressure but these issues are are stable. Low suspicion that diarrhea is related to CMV given it is not watery and is intermittent but if he develops worsening diarrhea he will let ID clinic know. No evidence of organ disease at this time. - Unclear why he continues to have long standing CMV viremia on treatment doses of valcyte. Previous resistance testing showed that virus is susceptible. He does have a history of maribavir resistance so this is no longer an option. Will sent CMV level today along with resistance testing to ensure he has not developed additional resistance. - Continue Valcyte 900 mg PO BID. Will follow up on labs from today and make medication changes if needed Assessment & Plan (02/09/2023 2:24 PM CDT): - Patient reports feeling well without any acute complaints today. 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 He seems to be asymptomatic at this point but worsening viremia in the setting of antivirals at treatment dose is concerning for resistance. He has known resistance to maribavir based on testing from 07/2022. Will obtain repeat CMV PCR along with resistance testing, inSIGHT T cell immunity panel, CBC and CMP. He will get these drawn on Wednesday. If CMV level continues to rise he will need to be started on IV antivirals, possibly with admission. He is agreeable to this plan. - Continue valganciclovir 900 mg PO BID for now, will reach out to him if changes need to be made based on repeat labs. 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 I do believe he is mostly compliant with his antivirals. Luckily he is not symptomatic at this time but it is concerning that he has had long standing viremia. If we are unable to get CMV under control we will investigate other options including virus-specific T- cell therapy that is being performed in [place] through clinical trial as he seems to be a good candidate for this. Assessment & Plan (07/09/2022 11:15 PM CDT): CMV DNA positivity since at least April 2017 at varying levels; since 06/2019 CMV 2-3 logIU/ml on Valganciclovir 900mg BID. Has been on multiple different therapies including PO valganciclovir, PO letermovir, IV ganciclovir, and PO maribavir with improved CMV levels but continued low level viremia. Most recently CMV DNA 27,355 IU/ml on 07/04. URI symptoms, fevers/chills/night sweats may be secondary to pneumonia and alternative viral infection as above, however cannot rule out CMV - Transplant ID consulted, discuss role of IV anti-viral therapy, resistance panel monitoring. Patient does not have home maribavir suppy with him - Blood cultures, fungal serologies and CMV DNA PCR pending Assessment & Plan (11/24/2021 1:22 PM SLOTTER OPERATOR): - Remains on high dose Valcyte at 900 mg PO BID with continued viremia. Viral load has decreased but he has been persistently viremic for several weeks despite high dose Valcyte. Resistance testing showed no mutations so it is unclear why he remains viremic. He reports 100% compliance with medications. Only complaint is diarrhea x 3 weeks, no systemic signs/symptoms of illness - Will wait for most recent CMV level to result and if he remains viremic we will set up to start IV ganciclovir as an outpatient. We discussed a brief admission to start ganciclovir but he wants to avoid admission at this time. Given he is clinically stable it is reasonable to start as an outpatient. We have also been speaking with [employer] regarding obtaining letermovir for him as it was denied by his insurance company after an appeal. Will review CMV levels with Dr. Duncan once resulted and plan for IV ganciclovir along with possible letermovir if he continues to be viremic. The concern is that he may develop mutations if he continues to have viremia on antiviral therapy - Continue weekly labs per transplant team including CMV level. I ordered additional standing CMV labs for [facility] to be drawn weekly. - Discussed with patient the rational for treatment, culture results, risk of recurrent infection, signs/symptoms of recurrent infection, and to contact ID clinic with any questions or concerns Assessment & Plan (10/13/2021 2:32 PM SLOTTER OPERATOR): - Reports doing well on induction dosing of Valcyte. He is tolerating medication well. CMV resistance testing pending along with lymph node biopsy although per communication with pathology dept biopsy shows cells with viral inclusions and CMV immunostain is positive. This is a common presentation with primary disease but not with reactivation although given his complicated immune system it is not a surprising finding. - Recommend he be on dual antiviral therapy with both Valcyte 900 mg PO BID and Letermovir 480 mg PO daily. Unfortunately, insurance has denied the initial order for letermovir. Appeal process was initiated but also denied. He is now working with drug wood tank builder ([employer]) to receive medication via the patient assistance program. For now, he should continue on Valcyte. - He is scheduled to have labs drawn on Wednesday at [facility]. Recommend weekly CMV level until undetectable and at that point he may be able to decrease Valcyte to maintenance dosing. [place] and [place] Years fall on Saturdays when he normally has labs drawn and he will have to go 2 weeks without labs. I asked if he could get these drawn during the week but he is unable to do so due to his work schedule. Will try to obtain additional supply of Valcyte induction dosing for him to continue on until we can confirm that his CMV level is undetectable. - Discussed with patient the rational for treatment, culture results, risk of recurrent infection, signs/symptoms of recurrent infection, and to contact ID clinic with any questions or concerns Assessment & Plan (03/12/2020 9:28 AM CDT): - Doing well with no complaints today. Tolerating IV ganciclovir without adverse effects. - Continue IV ganciclovir. Will repeat CMV DNA PCR in 2 weeks. If virus suppressed at that time, will switch to PO Valcyte. If not suppressed, will discuss the need for additional testing such as CMV T cell immunity. His viral low is too low for resistance testing. - Discussed with patient the rational for treatment, culture results, risk of recurrent infection, signs/symptoms of recurrent infection, and to contact ID clinic with any questions or concerns Assessment & Plan (02/17/2020 11:09 AM CDT): Persistent CMV viremia despite month long treatment with Valcyte Tolerating IV DHPG Continue treatment (and hopefully home treatment) Weekly CMV DNA PCR and will change back to PO when CMV DNA PCR negative Await results for assessment of DHPG resistance Assessment & Plan (02/15/2020 2:13 PM CDT): CMV DNA positivity since at least April 2017 at varying levels; since 06/2019 CMV 2-3 logIU/ml on Valganciclovir 900mg BID, most recently CMV DNA 3.6 logIU/ml on 02/08. Given persistent low-level CMV viremia despite PO therapy, pt admitted for IV ganciclovir as recommended by Dr. Gresham. -PICC placement as anticipated lengthy duration of treatment - to continue gancicylovir until CMV DNA PCR negative (monitor weekly s/p hospitalization) then may switch to Valcyte suppression -Plan previously discussed w/ Dr. Duncan (see Dr. Gresham's note 02/14) - as such, no indication for ID consult at present -Case Mgmt consult for anticipated HH/home infusion Assessment & Plan (12/22/2019 9:53 AM SLOTTER OPERATOR): Patient noted to have CMV viremia on 11/08/19, with titer of 508. ??Following this his prophylactic valgancyclovir was increased to treatment dose of 900mg BID. Titers have continued to increase: 530 on 12/02, 626 on 12/09, 940 on 12/16. -f/u CMV DNA -continue valgancyclovir 900mg BID Assessment & Plan (12/22/2019 7:38 AM SLOTTER OPERATOR): Patient had peripheral blood CMV PCR detectable at 508 on 11/08/2019. Previous titer was negative in 07/2019. Valacyclovir was increased to 900 b.i.d since 11/13. However, his viral load continues to increase despite treatment. On 12/02 was 530. 12/09: 626, 12/16: 940. CMV resistance testing was sent (12/12 ?) Now he presents with 2 days of fever with URI symptoms. No evidence of end organ involvement. - Continue valcyclovir 900 mg bid - Follow CMV resistance testing result - Consult ophthalmology for evaluation of retinitis if not done. Assessment & Plan (12/21/2019 6:29 PM SLOTTER OPERATOR): Patient noted to have CMV viremia on 11/08/19, with titer of 508. ??Following this his prophylactic valgancyclovir was increased to treatment dose of 900mg BID. Titers have continued to increase: 530 on 12/02, 626 on 12/09, 940 on 12/16. -f/u CMV DNA -continue valgancyclovir 900mg BID Immunocompromised patient 01/06/2019 Community acquired pneumonia 01/06/2019 Assessment & Plan (07/09/2022 11:13 PM CDT): Adenovirus+, Rhinovirus/enterovirus +. Predominantly pharyngitis/upper respiratory symptoms, with chills, low grade fevers and night sweats at home ~1-[address] chest with evidence of RML consolidation, may represent concomitant bacterial pneumonia. - Supportive care for viral URI - Blood cultures pending, fungal serologies pending - Induced sputum - Cefepime, azithromycin for CAP coverage. Can de-escalate pending blood cultures Assessment & Plan (10/10/2019 8:44 PM SLOTTER OPERATOR): Cough for several weeks with fevers, chills, night sweats. Now with WBC 12.6, RVP +adeno/parainfluenza. CXR finding of possible RML pneumonia. Afebrile here now and HD stable with softer Bps. -s/p 1L NS in [facility]; will give second bolus given softer Bps and poor po intake -s/p cefepime 1g in [facility], transition to azithro 500mg today and then 250mg tomorrow, CTX 2g q24h starting tomorrow -robitussin for cough prn -throat lozenge prn for sore throat -apap 500 q6h prn for fevers -f/u blood cultures x2 Lymphadenopathy 01/06/2019 Assessment & Plan (12/22/2019 9:53 AM SLOTTER OPERATOR): BL cervical LAD palpable on physical exam, these have been present for several weeks -patient plans to follow-up with??Dr. Gillespie Assessment & Plan (12/21/2019 6:23 PM SLOTTER OPERATOR): BL cervical LAD palpable on physical exam, these have been present for several weeks -patient plans to follow-up with??Dr. Gillespie Assessment & Plan (10/10/2019 8:38 PM SLOTTER OPERATOR): BL cervical LAD palpable on physical exam, worsening per patient ongoing for 3-4 weeks. -Case was discussed in [facility] with Dr. Gillespie's team and plan for PET scan and lymph node biopsy while admitted with no steroids while inpatient. 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 Follows with Dr. 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 - CAP CT: Extensive lymphadenopathy above and below the diaphragm compatible with known post-transplant lymphoproliferative disorder. Aight axillary and left inguinal lymph node have increased in size from 07/09/2022, the majority of lymph nodes are either stable or slightly decreased in size to prior. Stable postsurgical changes of liver transplant. - Neck CT: Redemonstrated findings of multistation diffuse cervical lymphadenopathy 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 - EUS with liver biopsy and retroperitoneal lymph node FNA for histology and flow cytometry 08/27. Follow up path. - Medical oncology following. Seen by Dr Gillespie during this admission. - IVIG on 08/31 Assessment & Plan (07/09/2022 11:15 PM CDT): Hx of c-Myc positive PTLD, EBV+, stage EMY, IPI 3 (stage, LDH, extranodal site). S/p RCHOP x1 and DA-EPOCH-R x5 (completed 12/2017), IT-MTX C3 only d/t intracranial hypotension, w/ post-C2 HI, CR at end-of treatment. No e/o recurrence though course complicated by multiple episodes of progressive adenopathy w/ spontaneous resolution. -Followed by Dr. Gillespie, on observation - Med Onc consult inpatient Assessment & Plan (02/15/2020 2:05 PM CDT): Hx of c-Myc positive PTLD, EBV+, stage EMY, IPI 3 (stage, LDH, extranodal site). S/p RCHOP x1 and DA-EPOCH-R x5 (completed 12/2017), IT-MTX C3 only d/t intracranial hypotension, w/ post-C2 HI, CR at end-of treatment. No e/o recurrence though course complicated by multiple episodes of progressive adenopathy w/ spontaneous resolution. -Followed by Dr. Gillespie, on observation - Med Onc consult inpatient Assessment & Plan (12/22/2019 9:33 AM SLOTTER OPERATOR): Follows with Dr. Gillespie. PET 07/13/19: Interval increase in size of diffuse lymphadenopathy both above and below diaphragm, considerably worse than last scan on 01/23/19. -defer management to outpatient physician Assessment & Plan (12/21/2019 6:24 PM SLOTTER OPERATOR): Follows with Dr. Gillespie. PET 07/13/19: Interval increase in size of diffuse lymphadenopathy both above and below diaphragm, considerably worse than last scan on 01/23/19. -defer management to outpatient physician Assessment & Plan (10/10/2019 8:42 PM SLOTTER OPERATOR): Follows with Dr. Gillespie. -plan for PET while inpatient and LN biopsy History of liver transplant (CMS/HCC) 06/06/2014 Assessment & Plan (02/21/2024 5:49 AM CDT): Pt w/ autoimmune hepatitis, s/p OLT 03/1999 c/b PTLD and now has CVID (on IVIG) - tacrolimus (0.5mg every other day); check tacro level and adjust tacro per daily troughs - hold home lasix and spironolactone iso recent shock, ongoing bacteremia - liver transplant team following - cont ursodiol Assessment & Plan (10/13/2023 10:49 AM SLOTTER OPERATOR): - S/p OLT '99 2/2 to autoimmune hepatitis. Current home medications are Tacrolimus 0.5mg q48h, Ursodiol 600mg daily, Aldactone 50mg, Lasix 20mg - Change tacrolimus 0.5mg q48h -> 72 hours per liver txp team recommendations. - Continue ursodiol 600mg daily - restarted on home lasix 20mg daily, and spirolonactone 50 Assessment & Plan (08/28/2023 1:45 PM CDT): Pt with history of cirrhosis 2/2 autoimmune hepatitis s/p liver transplant (03/2019). 08/07 Liver transplant doppler showed patent arterial, portal and hepatic venous systems. No thrombosis. - Increased tacrolimus dose at 0.5 mg every other day -> daily. Daily tacro levels. 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 Followed by Dr. Gresham. -Cont tacro 0.5 mg BID -Liver team consulted Assessment & Plan (10/01/2021 11:42 AM SLOTTER OPERATOR): S/p liver transplant 22 years ago in 1998 for AIH. Complicated post-transplant course including EBV-positive PTLD for which he has been treated with chemotherapy. He also developed persistent CMV viremia and did not achieve viremia control despite having received both oral valganciclovirand and IV ganciclovir treatment. Given the concern for resistance with continued treatment, antivirals were stopped and he has continued to be monitored. ?? Mr. Nichols developed evidence for an abscess in his liver around October 2019. Following treatment with antibiotics, this has continued to shrink in size, last imaging done Oct 2020 that showed continued interval decrease in size and conspicuity, measuring 7 x 4 mm, previously 2.3 cm in January 2020 ?? The last issue is the alkaline phosphatase and elevated liver tests. MRI imaging showed no evidence for ductal dilation. Liver biopsy, the most recent of which was done on 05/14/2020, showed only a (non-clonal) sinusoidal T-cell predominant infiltrate and foci of lobular lymphoid aggregates and microgranulomas. He was started on ursodiol in May 2020. Most recent labs from today show further increase in liver numbers as well as elevated WBC. This may be due to current sinus infection or virus. He is going to see Dr. Gillespie later today and decide if he needs antibiotics. He will repeat labs once symptoms have resolved and/or completion of antibiotics. If liver numbers remain elevated at that time, he will need imaging and/or liver biopsy. He continues to chew tobacco daily. Discussed the increased risk of oral cancer and importance of tobacco cessation. He will return to clinic in 1 year or sooner if needed. ?? 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 Followed by Dr. Gresham. -Cont tacro 0.5 mg BID -Liver team consulted Assessment & Plan (12/22/2019 9:32 AM SLOTTER OPERATOR): Follows with Dr. Mp bolton/wendie tacro 0.5mg BID -c/w valcyte 900mg BID Assessment & Plan (12/21/2019 6:24 PM SLOTTER OPERATOR): Follows with Dr. Mp bolton/wendie tacro 0.5mg BID -c/w valcyte 900mg BID Assessment & Plan (10/10/2019 8:39 PM SLOTTER OPERATOR): Follows with Dr. 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 Recently had some sinus congestion w/ cough that is improving on Augmentin. No fevers or chills. CMV level last 171 on 08/24. Has not been above 200 in over 6 months. - Continue valganciclovir 450 mg PO BID and letermovir 480 mg PO daily for CMV viremia. Plan to continue indefinitely at this point. Can consider monotherapy in the future but given he is tolerating current regimen well and his CMV viremia is well controlled for the first time in several years will plan to continue current regimen at this time. - Plan for CMV PCR along with CBC and CMP at least every 2-3 months. - Imaging 08/2024 reviewed which shows resolution of cavitary pneumonia with small L pleural effusion and tree-in-bud changes. No additional work up indicated at this time Assessment & Plan (10/09/2023 10:53 PM SLOTTER OPERATOR): - hx of longer term CMV viremia and follows with ID outpatient. He was recently on Maribavir, switched to Foscarnet (EOT 09/07) and Valcyte as he had heterogenous CMV w/ varying resistant types during most recent admission 08/2023, levels stable this admission. - cont maintenance/secondary prophylaxis with letermovir and valganciclovir Assessment & Plan (09/02/2023 3:49 PM CDT): He continued to have CMV viremia despite maribavir with last CMV PCR around 3000 on 07/29/23. Recent resistance panel shows maribavir and ganciclovir resistance. CMV PCR stable 2890. - Transplant ID following. Started foscarnet and valganciclovir (08/24- ). - Repeat CMV PCR 185. Assessment & Plan (08/23/2023 3:00 PM CDT): - Continued CMV viremia despite maribavir with last CMV PCR around 3000. Recent resistance panel shows maribavir and ganciclovir resistance. He now presents with fevers, abdominal distension, jaundice, lower extremity edema, and fatigue concerning for rejection vs worsening CMV disease. His last labs have shown elevated LFTs including increasing bilirubin. - Recommend admission today. I reached out to his oncologist, Dr. Gillespie, who will admit to oncology service. - Recommend transplant ID consult during admission to determine if he needs to start on foscarnet for management of his CMV - Labs drawn today in clinic: CBC, CMP, CMV PCR, Blood cultures x 2 - He will have CT prior to admission per oncology Assessment & Plan (07/09/2022 9:07 PM CDT): - Multiple medical complaints today including fatigue, subjective fevers, sinus congestion, cough, and night sweats in the setting of worsening CMV viremia, worsening liver enzymes, and recent imaging showing consolidation to right middle lobe. Given he is immunocompromised and medically complex it was decided to admit for further work up. Will attempt to admit to oncology. - Recommend initial ID work up to include blood cultures x 2, fungal blood culture, serum Crypto Ag, serum Histo Ab, and urine Histo Ag. He is not currently neutropenic but given he is immunocompromised due to several reasons (splenectomy, liver transplant on tacro, CVID) will pursue broad work up - Recommend dedicated chest CT to evaluate consolidation to right middle lobe along with sinus CT due to recurrent sinusitis and current symptoms. He has scheduled follow up with ENT today. I spoke with ENT regarding his admission and recommend ENT be consulted during admission for evaluation - Will need dermatology consult for evaluation and biopsy of large nodule to right thigh. - Will also need hepatology consult due to worsening liver enzymes in the setting of previous transplant - Please consult transplant ID team early in admission for evaluation. He may need started on IV ganciclovir or even IV foscarnet for CMV viremia. Previous resistance testing showed no mutations but he has continued to have low level viremia while on IV ganciclovir, PO valgancyclovir and PO letemrovir. He has also had continued low level viremia with recent significant increase in CMV levels while still taking maribavir. He has always reported compliance with medications. Assessment & Plan (02/17/2022 12:42 PM CDT): - IV ganciclovir and PO letermovir stopped last week and line removed. Clinically doing well without complaints - CMV levels have not become undetectable but viral load is very low and he has no clinical signs or symptoms of CMV infection. Unclear why he continues to have low level viremia on antiviral medications as he has no mutations in virus per recent testing. Risk of continuing antivirals at this point include developing mutations/drug resistance. Given he is clinically doing well and viremia is very low he should remain off all antivirals at this time and monitor. Will repeat CMV levels in 2 weeks and he should monitor closely for any clinical signs/symptoms of CMV infection. He is agreeable to plan and will call with any issues - Discussed with patient the rational for treatment, culture results, risk of recurrent infection, signs/symptoms of recurrent infection, and to contact ID clinic with any questions or concerns Assessment & Plan (01/05/2022 12:59 PM SLOTTER OPERATOR): - Remains on IV ganciclovir with no acute issues. Previously had diarrhea but this is improving. No systemic signs of infection. Labs show decreasing CMV viral load. He has had low platelets but I do not feel this is likely related to ganciclovir given lack of neutropenia. Will continue to follow closely. I asked him to watch for any signs of bleeding - Continue ganciclovir IV. Plan to continue until he has 2 undetectable CMV viral loads. At that point, will plan to switch to PO letermovir. He is agreeable to plan - Continue weekly CBC, CMP, CMV while on IV ganciclovir - Discussed with patient the rational for treatment, culture results, risk of recurrent infection, signs/symptoms of recurrent infection, and to contact ID clinic with any questions or concerns Assessment & Plan (02/03/2021 2:34 PM CDT): - Patient reports doing well with no acute concerns today. Remains compliant with Valcyte without adverse effects. He has not had labs drawn since 11/2020 (should be getting monthly labs). - Continue Valcyte 900 mg PO BID until his labs have been drawn and CMV level is resulted. Hopes are that the combination of his IgG treatments along with course of Valcyte with improve his persistent low level viremia. 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 Platelets wnl now. 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 Some degree of rejection, currently on Tacro BID. Needs levels followed, and GI to recommend goal values. 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 Last infusion Wednesday 12/20. 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 Admit Cr 1.54 from baseline normal. Normalized by floor transfer. Assessment & Plan (02/20/2024 9:59 AM CDT): Cr 1.54. Pre-renal vs ATN. s/p 3L IVF and vancomycin in ED, contrast CT obtained in ED. BUN 26 -trend UOP -trend Cr 1.54 > 1.07 today -urine lytes FENA 0.7% c/w pre-renal etiology -avoid nephrotoxins -renally dose medications Pneumonia of right lung due to infectious organism, unspecified part of lung 10/03/202310/13 Assessment & Plan (10/10/2023 4:40 PM SLOTTER OPERATOR): - initially planned to complete empiric 7 day course cefepime 10/10; this was extended to 14 days due to c/f empyema - s/p vancomycin (10/03-10/04), azithromycin (10/04-10/05) Fever in adult 08/23/2023 08/24/2023 Assessment & Plan (08/23/2023 5:48 PM CDT): ?CMV Assessment & Plan (08/23/2023 6:31 PM CDT): intermittent CMV viremia since 06/2019. Has been on multiple different therapies including PO valganciclovir, PO letermovir, IV ganciclovir, and PO maribavir. Currently on maribavir 400 mg PO BID with continued viremia. He continued to have CMV viremia despite maribavir with last CMV PCR around 3000 on 07/29/23. Recent resistance panel shows maribavir and ganciclovir resistance. 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 While a right axillary and left inguinal lymph node have increased in size from 07/09/2022, the majority of lymph nodes are either stable or slightly decreased in size to prior. He also has diffuse cervical lymphadenopathy 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 - consult transplant ID team tomorrow - send stool work up, follow blood cultures that has been already drawn - follow CMV DNA - Add Zosyn and Vancomycin pending blood cultures result. He has fever and leucocytosis PTLD (post-transplant lympho proliferative disorder) 07/09/2022 12/29/2022 Fever 12/22/2019 10/09/2023 Assessment & Plan (12/22/2019 7:46 AM SLOTTER OPERATOR): Patient has fever 2 days with sore throat, myalgia, productive cough. No shortness of breath, no diarrhea, abdominal pain. Physical exam was remarkable for known cervical lymphadenopathy. RVP was positive for rhino/enterovirus. CBC was normal. CMP found elevated ALP since 10/2019. CXR no new consolidation. UA was normal. - His symptoms are mostly consistent with viral upper respiratory tract infection from rhino/entero virus. However, will send more work up according to exposure: Bartonella serology, toxoplasma IgG/IgM and EBV PCR - Patient can be managed outpatient if no other condition requiring inpatient management. ID will arrange follow up Immunizations Name Administration Dates Next Due Influenza, Quadrivalent, Elana l Culture-based MDCK, Preservative Free, Antibiotic Free, Intramuscular 09/28/2018 Racemi (J&J) SARS-CoV-2 Vaccination 02/08/2021 Meningococcal Conjugate (Menveo) 11/11/2012 Meningococcal MCV4P (Menactra) 11/11/2012 Pfizer SARS-CoV-2 Monovalent Vaccination (12+ Yrs) PURPLE 05/13/2022 Pneumococcal Conjugate Pcv20 03/20/2024 Pneumococcal Polysaccharide PPV23 11/11/2012 Pneumococcal, Unspecified 08/10/2013 Tdap 06/16/2021 Social History Tobacco Use Types Packs/Day Years Used Date Smoking Tobacco: Never Smokeless Tobacco: Current Chew Tobacco Cessation:Ready to Q uit: Not Asked; Counseling Given: Not Answered Comments:Chews tobacco on occasion Alcohol Use Standard Drinks/Week Comments Yes 0 (1 standard drink = 0.6 oz pur e alcohol) occassional OASIS D0700: Social Isolation Answer Da te Recorded Frequency of experiencing loneliness or isolatio n Never 02/29/2024 [facility] Utilities Answer Date Recorded In the past 12 months has [employer], gas, oil, or water [employer] threatened to shut off services in your [...] week 02/23/2024 How often do you attend [facility] or luther[facility] services? 1 to 4 times per year 02/23/2024 Do you belong to any clubs o r organizations such as roman catholic groups, unions, fraternal or athletic groups, [...] place to sleep or slept in a chcf (including now)? No 02/23/2024 Personal Safety Answer Date Recorded Have you ever been in or are you currently in a harmful physical or emotional relationship or is someone making you feel afraid or unsafe? Denies 04/28/2024 Sex and Gender Information Value Date Recorded Sex Assigned at Not on file Legal Sex Male 6:28 AM SLOTTER OPERATOR Gender Identity Not on file Sexual Orientation Straight 08/22/2021 9: 23 AM CDT Last Filed Vital Signs Vital Sign Reading Time Taken Comments Blood Pressure 111/67 09/15/2024 1:47 PM SLOTTER OPERATOR Pulse 84 09/15/2024 1:47 PM SLOTTER OPERATOR Temperature 36.4 ??C (97.6 ??F) 09/15/2024 1:47 PM CS T Respiratory Rate 18 09/15/2024 1:47 PM SLOTTER OPERATOR Oxygen Saturation 99% 09/15/2024 1:47 PM SLOTTER OPERATOR Inhaled Oxygen Concentration - - Weight 63.5 kg (140 lb) 09/15/2024 1:47 PM SLOTTER OPERATOR Height 170.2 cm (5' 7 ) 09/15/2024 1:47 PM SLOTTER OPERATOR Body Mass Index 21.93 09/15/2024 1:47 PM SLOTTER OPERATOR Plan of Treatment Scheduled Procedures Name Priority Associated Diagnoses Date/Ti me COLONOSCOPY Encounter for screening for colorectal cancer in high risk patient Family history of rectal cancer Medical Devices Implanted Type Area Herbicide Sprayer Device Identifier Shelf Expiration Date Model / Serial / Lot [employer] Bobbin 1.27mm 1.55mm Collar Button Tube Ventilation Fluoroplastic [id number] - [id number] Implanted:Qty: 1 on 04/28/2024 by Massiel Gastelum MD at [facility] Other - see comments Right: Ear [employer] [id number] 02/21/2027 [id number] / / [id number] Description:Ear tube [employer] Bobbin 1.27mm 1.55mm Collar Button Tube Ventilation Fluoroplastic [id number] - [id number] Implanted:Qty: 1 on 04/28/2024 by Massiel Gastelum MD at [facility] Other - see comments Left: Ear [employer] [id number] 02/21/2027 [id number] / / [id number] Description:Ear tube Explanted Type Area Herbicide Sprayer Device Identifier Shelf Expiration Date Model / Serial / Lot Button Ventilation Tube Explanted:Qty: 1 on 04/28/2024 at [facility] Other - see comments Left: Ear [employer] 10/31/2024 [id number] / / Description:Ear tube explant ed during case. Not previously documented as implanted. Procedures Procedure Name Priority Date/Time Associated Diagnosis Comments PULMONARY FUNCTION TEST (PFT) Routine 09/15/2024 1:34 PM SLOTTER OPERATOR Chronic cough XR CHEST PA LATERAL 2 VIEWS Schedule Routine, Read Routine (OP Routine) 09/15/2024 11:23 AM SLOTTER OPERATOR Chronic cough COMPREHENSIVE METABOLIC PANEL Routine 09/09/2024 CT CHEST WO CONTRAST Schedule Routine, Read Routine (OP Routine) 08/14/2024 7:50 AM CDT Chronic cough History of liver transplant (CMS/HCC) (HCC) Recurrent pneumonia EGFR Routine 08/14/2024 7:10 AM CDT 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HCC) EGFR Routine 08/14/2024 7:10 AM CDT History of liver transplant (CMS/HCC) (HCC) DIFFERENTIAL AUTO Routine 08/14/2024 7:1 0 AM CDT History of liver transplant (CMS/HCC) (HCC) GLUCOSE, RANDOM (OUTREACH) Routine 08/14/2024 7:10 AM CDT 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HCC) COMPREHENSIVE METABOLIC PANEL WITHOUT GLUCOSE (OUTREACH) Routine 08/14/2024 7:10 AM CDT 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HCC) COMPREHENSIVE METABOLIC PANEL (OUTREACH) Routine 08/14/2024 7:10 AM CDT 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HCC) TACROLIMUS LEVEL, TROUGH Routine 08/14/2024 7:10 AM CDT History of liver transplant (CMS/HCC) (HCC) GAMMA GT Routine 08/14/2024 7:10 AM CDT History of liver transplant (CMS/HCC) (HCC) COMPREHENSIVE METABOLIC PANEL Routine 08/14/2024 7:10 AM CDT History of liver transplant (CMS/HCC) (HCC) CBC WITH AUTO DIFFERENTIAL Routine 08/14/2024 7:10 AM CDT History of liver transplant (CMS/HCC) (HCC) CYTOMEGALOVIRUS (CMV) DNA, QUANT GEN LAB Routine 08/14/2024 7:10 AM CDT 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HCC) AUDBASE RESULTS 08/02/2024 10:02 AM CDT XR CHEST PA LATERAL 2 VIEWS Schedule Routine, Read Routine (OP Routine) 08/02/2024 9:34 AM CDT History of liver transplant (CMS/HCC) (HCC) Chronic cough MANUAL DIFFERENTIAL Routine 08/02/2024 7 :16 AM CDT 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) CBC WITH AUTO DIFFERENTIAL Routine 08/02/2024 7:16 AM CDT 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) EGFR Routine 08/02/2024 7:10 AM CDT 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) IGG Routine 08/02/2024 7:10 AM CDT 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) Hypogammaglobulinemi a (HCC) COMPREHENSIVE METABOLIC PANEL Routine 08/02/2024 7:10 AM CDT 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) LACTATE DEHYDROGENASE Routine 08/02/2024 7:10 AM CDT 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) HEPATITIS PANEL, ACUTE Routine 02/18/2024 4:15 PM CDT from Last 3 Months or Most Recently Relevant to Health Maintenance Results * Pulmonary Function Test - (09/15/2024 1:34 PM SLOTTER OPERATOR) FVC PRE 2.[address] [facility] FVC %PRE PRED 52 % [facility] FVC POST 2.[address] [facility] FVC %POST PRED 50 % [facility] FEV1 PRE 1.[address] [facility] FEV1 %PRE PRED 46 % [facility] FEV1 POST 1.[address] [facility] FEV1 %POST PRED 49 % [facility] FEV1/FVC PRE 73.5 % [facility] FEV1/FVC POST 80.8 % [facility] FRC PL PRE 2.[address] [facility] FRC PL %PRE PRED 67 % [facility] RV PRE 1.[address] [facility] RV %PRE PRED 94 % [facility] TLC PRE 4.[address] [facility] TLC %PRE PRED 65 % [facility] DLCO PRE 13.6 ml/min/mmH g [facility] DLCO %PRE PRED 45 % [facility] FIO2 % 21.00 % [facility] PaO2 99.[address] [facility] PaCO2 [address] [facility] pH 7.[address] [facility] A-aDO2 POC 12.[address] [facility] COHb POC 0.8 % [facility] HCO3 21.1 mEq/L [facility] Anatomical Region Laterality Modality PFT 09/15/2024 12:3 9 PM SLOTTER OPERATOR Narrative 09/18/2024 10:49 AM SLOTTER OPERATOR Table formatting from the original result was not included. [facility] Division of Pulmonary & Critical Care Medicine [address] [place] [address]; [facility]; [place], [place] ??[address]; [phone] Pulmonary Function Laboratory Pulmonary Stress Test Simple/Oxygen Assessment Patient: Beka Nichols Date: 09/15/2024 : 1995 Ht: 67 in Wt: 140 lbs Time (min) Distance (ft)/ Crocker O2 L/M SpO2 HR Maranda* BP FEV1 % Pred Rest: ??RA 100 87 0 122/57 1.87 46 % ? Walk/Bike: 1 ??RA 99 95 0 ? 2 ?? 99 99 0 ? 3 ?? 98 101 0 ? 4 ?? 98 104 1 ? 5 ?? 98 103 1 ? 6 min 0 sec ??RA 98 104 1 ? Recovery: 1 ??RA 99 99 1 131/69 2.01 49 % 3 ?? 99 92 1 ?*Maranda rate of perceived exertion (1-10 dyspnea scale) ??Yousif, CHEST 2003; 123:1408 Walk Test Summary: Six Minute Walk Distance: 900 ft Six-minute Walk Work [distance (m) x body wt (kg)]: 57867 kg.m (normal >60,000kg.m) Oxygen required to maintain [...] with the written final report. PFT performed at:->[facility] Adult PFT Lab- [facility] Procedure:->Spirometry Procedure:->Spirometry [...] %HbO2 is age dependent. However, the [facility] Pulmonary Function Laboratory defines hypoxemia as a PaO2 <56 mm Hg or a %HbO2 <89%. us Adolfo Tapia MD PFT ORDERABLES Final Result * XR Chest Pa Lateral 2 Views (09/15/2024 11:23 AM SLOTTER OPERATOR) Anatomical Region Laterality Modality Body, Chest N/A Computed Radiogr aphy 09/15/2024 11:4 5 AM SLOTTER OPERATOR Impressions 09/15/2024 11:45 AM SLOTTER OPERATOR Normal heart size and mediastinal contours. ??Unchanged [...] Jez Elizondo M.D. Narrative 09/15/2024 11:45 AM SLOTTER OPERATOR EXAMINATION: 2 view chest radiograph COMPARISON: 08/02/2024 [...] MD IMG XR PROCEDURES Final Resu lt * (ABNORMAL) Comprehensive metabolic panel (09/09/2024) SCRIBED Sodium 138 137 - 145 mmol/L [facility] Potassium 4.4 3.4 - 5.0 mmol/L [facility] Chloride 105 98 - 107 mmol/L [facility] Carbon Dioxide 27 22 - 30 mmol/L [facility] Urea Nitrogen (BUN) 16 9 - 20 mg/dl [facility] Creatinine 1.10 0.7 - 1.3 mg/dl [facility] Glucose 103 65 - 110 mg/dl [facility] Calcium 8.7 8.4 - 10.2 mg/dl [facility] Blood 09/09/2024 Historical Provider LAB BLOOD ORDERABLES Edit ed Result - Final [facility] * CT Chest WO Contrast (08/14/2024 7:50 AM CDT) Anatomical Region Laterality Modality Body N/A Computed Tomogra phy 08/14/2024 8:06 AM CDT Impressions 08/14/2024 8:11 AM CDT 1. ??Evolving sequela of left lower lobe cavitary pneumonia with resolution of the cavitary component and mild residual tree-in-bud nodularity in the left lower right upper lobes, and trace left residual pleural effusion. 2. ??Unchanged prominent to mildly enlarged thoracic and retroperitoneal lymphadenopathy. Dictated by: Guido Phillips MD The radiology attending physician has personally reviewed this study, and had reviewed and/or edited this written report and agrees with it. Electronically signed by: Gregg Johnson M.D. Narrative 08/14/2024 8:11 AM CDT EXAMINATION: CT of the chest without intravenous contrast. HISTORY: Status post liver transplant in March 1999, a post transplant lymphoproliferative disorder status post chemotherapy, most recently completed in 2018 present for follow-up.. ??Status post antibiotics. TECHNIQUE: Transaxial computed tomographic images of the most recent examination with findings of left lower lobe cavitary pneumonia. were obtained without contrast according to standard protocol. ?? COMPARISON: CT 02/18/2024. FINDINGS: Imaged thyroid is normal. ??Again seen are prominent to mildly enlarged left greater than right axillary nodes, for reference a 1.4 cm left axillary node (series 2, image 20), unchanged. ??Additional prominent supraclavicular, mediastinal, and hilar nodes are noted. Residual thymic tissue is noted in anterior mediastinum. ??Thoracic aorta is normal in caliber. ??Calcified right hilar nodes are likely sequela of chronic granulomatous disease. ??Heart size is mildly enlarged with trace pericardial fluid. ??Gynecomastia is noted. Limited examination of the upper abdomen demonstrates changes of orthotopic liver transplantation with extensive surgical clips along the right hemiliver. ??Spleen is surgically absent. ??Scattered subcentimeter mesenteric and retroperitoneal nodes, not dramatically changed from the prior examination, likely reactive. Tree-in-bud nodularity in the left lower lobe at the site of the previous cavitary left lower lobe pneumonia with resolution of cavitary component.. ??Near complete resolution of the bilateral pleural effusions with trace residual left pleural effusion. ??No pneumothorax. ?? No suspicious osseous lesions. Procedure Note Gregg Johnson MD - 08/14/2024 EXAMINATION: CT of the chest without intravenous contrast. HISTORY: Status post liver transplant in March 1999, a post transplant lymphoproliferative disorder status post chemotherapy, most recently completed in 2018 present for follow-up.. Status post antibiotics. TECHNIQUE: Transaxial computed tomographic images of the most recent examination with findings of left lower lobe cavitary pneumonia. were obtained without contrast according to standard protocol. COMPARISON: CT 02/18/2024. FINDINGS: Imaged thyroid is normal. Again seen are prominent to mildly enlarged left greater than right axillary nodes, for reference a 1.4 cm left axillary node (series 2, image 20), unchanged. Additional prominent supraclavicular, mediastinal, and hilar nodes are noted. Residual thymic tissue is noted in anterior mediastinum. Thoracic aorta is normal in caliber. Calcified right hilar nodes are likely sequela of chronic granulomatous disease. Heart size is mildly enlarged with trace pericardial fluid. Gynecomastia is noted. Limited examination of the upper abdomen demonstrates changes of orthotopic liver transplantation with extensive surgical clips along the right hemiliver. Spleen is surgically absent. Scattered subcentimeter mesenteric and retroperitoneal nodes, not dramatically changed from the prior examination, likely reactive. Tree-in-bud nodularity in the left lower lobe at the site of the previous cavitary left lower lobe pneumonia with resolution of cavitary component.. Near complete resolution of the bilateral pleural effusions with trace residual left pleural effusion. No pneumothorax. No suspicious osseous lesions. IMPRESSION: 1. Evolving sequela of left lower lobe cavitary pneumonia with resolution of the cavitary component and mild residual tree-in-bud nodularity in the left lower right upper lobes, and trace left residual pleural effusion. 2. Unchanged prominent to mildly enlarged thoracic and retroperitoneal lymphadenopathy. Dictated by: Guido Phillips MD The radiology attending physician has personally reviewed this study, and had reviewed and/or edited this written report and agrees with it. Electronically signed by: Gregg Johnson M.D. Susan Zhou MD [facility] [place] PROCEDURES Final Result * (ABNORMAL) Cytomegalovirus (CMV) DNA PCR, quantitative Blood (08/14/2024 7:10 AM CDT) [facility] CMV DNA Detected( A) [facility] Comment: Interpretive Data: The quantifiable range of this assay is 34 IUnits/mL to 10,000,000 IUnits/mL (1.53 log IUnits/mL to 7.0 log IUnits/mL). Testing was performed by the NIA 6800 CMV Test ([facility] Testing performed at [facility]. Current interpretive data was last revised on 2021. CMV DNA IU/mL 171 IUnits/mL [facility] CMV DNA log IU/mL 2.23 log IUnits/mL [facility] Blood 08/14/2024 7:10 AM CDT 08/14/2024 8:49 AM CDT Lisandra Auguste NP LAB MICROBIOLOGY - GENERA L ORDERABLES Final Result Performing Organization Address City/[facility]/ZIP Co de Phone Number [facility] Department [place] [address] [facility] * Glucose, random (Outreach) (08/14/2024 7:10 AM CDT) Pathologist [facility] Glucose 101 70 - 199 mg/dL Comment: Interpretive Data Fasting glucose >/= 126 mg/dl is diagnostic for diabetes. ?? Fasting is defined as no caloric intake for at least 8 hours. Fasting glucose between 100 mg/dl to 125 mg/dl is diagnostic of prediabetes. In a patient with classic symptoms of hyperglycemia or hyperglycemic crisis, a random glucose >/= 200 mg/dl is diagnostic for diabetes. In the absence of unequivocal hyperglycemia, results should be confirmed by repeat testing. The classification and Diagnosis of Diabetes Diabetes Care 2021; 46: S19-S40. Current interpretive data was last revised 2022. Blood 08/14/2024 7:10 AM CDT 08/14/2024 7:45 AM CDT Lisandra Auguste SPINE SUPERVISOR LAB BLOOD ORDERABLES Chata l Result Performing Organization Address City/[facility]/ZIP Co de Phone Number [facility] Department [place] [address] * eGFR (08/14/2024 7:10 AM CDT) Pathologist [facility] eGFR >90 >=60 mL/min/1. 73 m2 Comment: Interpretive Data Reference Interval Normal ?>/= 90 mL/min/1.73m2 Mildly decreased* ? 60 - 89 mL/min/1.73m2 Mildly to moderately decreased ?45 - 59 mL/min/1.73m2 Moderately to severely decreased ??30 - 44 mL/min/1.73m2 Severely decreased ?15 - 29 mL/min/1.73m2 Kidney Failure ?< 15 ??mL/min/1.73m2 *Relative to young adult level Estimated glomerular filtration rate is determined by the 2020 CKD-EPI equation recommended by the National Kidney Foundation (A Unifying Approach to GFR Estimation: Recommendations of the NKF-ASK Task Force on Reassessing the Inclusion of Race in Diagnosing Kidney Disease, JASN 2020). The CKD-EPI equation should not be used for patients with unstable renal function and has not been validated in children and those over 70. Current interpretive data was last reviewed 2021. Blood 08/14/2024 7:10 AM CDT 08/14/2024 7:50 AM CDT us Lisandra Auguste SPINE SUPERVISOR LAB BLOOD ORDERABLES Chata cuadra Result Performing Organization Address City/State/ZIP Co ky Phone Number [facility] Department [place] [address] * eGFR (08/14/2024 7:10 AM CDT) eGFR See Comment >=60 Comment: Credited, duplicate test. Interpretive Data Reference Interval Normal ?>/= 90 mL/min/1.73m2 Mildly decreased* ? 60 - 89 mL/min/1.73m2 Mildly to moderately decreased ?45 - 59 mL/min/1.73m2 Moderately to severely decreased ??30 - 44 mL/min/1.73m2 Severely decreased ?15 - 29 mL/min/1.73m2 Kidney Failure ?< 15 ??mL/min/1.73m2 *Relative to young adult level Estimated glomerular filtration rate is determined by the 2020 CKD-EPI equation recommended by the National Kidney Foundation (A Unifying Approach to GFR Estimation: Recommendations of the NKF-ASK Task Force on Reassessing the Inclusion of Race in Diagnosing Kidney Disease, JASN 2020). The CKD-EPI equation should not be used for patients with unstable renal function and has not been validated in children and those over 70. Current interpretive data was last reviewed 2021. Blood 08/14/2024 7:10 AM CDT 08/14/2024 7:50 AM CDT us Susan Zhou MD LAB BLOOD ORDERABLES Ed ited Result - Final [facility] Department [place] [address] * (ABNORMAL) Differential, auto (08/14/2024 7:10 AM CDT) Neutrophil abs 1.8 1.5 - 6.5 K/cumm Imm gran abs 0.0 0.0 - 0.1 K/cumm [facility] Lymphocyte abs 1.5 0.8 - 3.3 K/cumm [facility] Monocyte abs 1.9(H) 0.2 - 0.8 K/cumm [facility] Eosinophil abs 0.2 0.0 - 0.5 K/cumm [facility] Basophil abs 0.1 0.0 - 0.1 K/cumm [facility] Neutrophil pct 32.5 % [facility] Comment: Interpretive Data Percent cell count reference ranges are not reported, since discordance with absolute values may lead to misinterpretation of CBC data. Current Interpretive Data was last revised on 2018. Imm gran pct 0.5 % [facility] Comment: Interpretive Data Percent cell count reference ranges are not reported, since discordance with absolute values may lead to misinterpretation of CBC data. Current Interpretive Data was last revised on 2018. Lymphocyte pct 27.5 % [facility] Comment: Interpretive Data Percent cell count reference ranges are not reported, since discordance with absolute values may lead to misinterpretation of CBC data. Current Interpretive Data was last revised on 2018. Monocyte pct 34.2 % [facility] Comment: Interpretive Data Percent cell count reference ranges are not reported, since discordance with absolute values may lead to misinterpretation of CBC data. Current Interpretive Data was last revised on 2018. Eosinophil pct 3.8 % [facility] Comment: Interpretive Data Percent cell count reference ranges are not reported, since discordance with absolute values may lead to misinterpretation of CBC data. Current Interpretive Data was last revised on 2018. Basophil pct 1.5 % [facility] Comment: Interpretive Data Percent cell count reference ranges are not reported, since discordance with absolute values may lead to misinterpretation of CBC data. Current Interpretive Data was last revised on 2018. Blood 08/14/2024 7:10 AM CDT 08/14/2024 7:45 AM CDT Susan Zhou MD LAB BLOOD ORDERABLES Fi nal Result [facility] Department [place] [address] * Tacrolimus level trough (08/14/2024 7:10 AM CDT) Tacrolimus trough 3.9 ng/mL Comment: Interpretive Data Testing performed by liquid chromatography-tandem mass spectrometry. ??Therapeutic concentrations vary depending on type of transplanted organ and time elapsed since transplant. ??Typical trough concentrations range from 5-15 ng/mL. ??This test was developed and its performance characteristics determined by the [facility] consistent with CLIA requirements. ??This test has not been cleared or approved by the [place] Food and Drug administration. ??Current interpretive data last reviewed 2020. Blood 08/14/2024 7:10 AM CDT 08/14/2024 7:45 AM CDT Susan Zhou MD LAB BLOOD ORDERABLES Fi nal Result Performing Organization Address [facility] Co de Phone Number [facility] Department [place] [address] * (ABNORMAL) Comprehensive metabolic panel, without glucose (Outreach) (08/14/2024 7:10 AM CDT) Sodium 141 135 - 145 mmol/L Potassium, pl 4.6 3.3 - 4.9 mmol/L [facility] Chloride 109 97 - 110 mmol/L [facility] CO2 23 22 - 32 mmol/L [facility] Anion gap 9 2 - 15 mmol/L [facility] BUN 16 6 - 25 mg/dL [facility] Creatinine 1.07 0.80 - 1.30 mg/dL [facility] Calcium 8.5 8.5 - 10.3 mg/dL [facility] Protein, pl 5.7(L) 6.5 - 8.5 g/dL [facility] Albumin 3.2(L) 3.5 - 5.0 g/dL [facility] Bilirubin, total 1.5(H) 0.1 - 1.2 mg/dL [facility] Alk phos 271(H) 40 - 130 Units/L [facility] AST 47 10 - 50 Units/L [facility] ALT 33 7 - 55 Units/L [facility] Blood 08/14/2024 7:10 AM CDT 08/14/2024 7:45 AM CDT Lisandra Auguste NP LAB BLOOD ORDERABLES Chata l Result Performing Organization Address [facility]/ZIP Co de Phone Number [facility] Department [place] [address] * (ABNORMAL) CBC with auto differential (08/14/2024 7:10 AM CDT) WBC 5.5 3.8 - 9.9 K/cumm Hgb 12.4(L) 13.0 - 17.5 g/dL [facility] Hct 34.3(L) 38.9 - 50.3 % [facility] Plt 269 150 - 400 K/cumm [facility] MPV 10.4 9.1 - 12.3 fL [facility] RBC 3.33(L) 4.30 - 5.80 M/cumm [facility] MCV 103.0(H) 81.3 - 96.4 fL [facility] MCH 37.2(H) 27.1 - 33.3 pg [facility] MCHC 36.2(H) 32.3 - 35.7 g/dL [facility] RDW CV 15.0(H) 11.1 - 14.9 % [facility] RDW SD 56.4(H) 35.7 - 48.1 fL [facility] NRBC abs 0.00 0.00 - 0.01 K/cumm [facility] Blood 08/14/2024 7:10 AM CDT 08/14/2024 7:45 AM CDT Susan Zhou MD LAB BLOOD ORDERABLES Fi nal Result [facility] Department [place] [address] * (ABNORMAL) Gamma GT (08/14/2024 7:10 AM CDT) Pathologist [facility] GGT 56(H) 10 - 50 Units/L Blood 08/14/2024 7:10 AM CDT 08/14/2024 7:45 AM CDT Susan Zhou MD LAB BLOOD ORDERABLES Fi nal Result [facility] Department [place] [address] * Comprehensive metabolic panel (08/14/2024 7:10 AM CDT) Sodium See Comment 135 - 145 mmol/L Comment:Credited, duplicate test. Potassium, pl See Comment 3.3 - 4.9 mmol/L [facility] Comment:Credited, duplicate test. Chloride See Comment 97 - 110 mmol/L [facility] Comment:Credited, duplicate test. CO2 See Comment 22 - 32 mmol/L [facility] Comment:Credited, duplicate test. Anion gap See Comment 2 - 15 mmol/L [facility] Comment:Credited, duplicate test. BUN See Comment 6 - 25 mg/dL [facility] Comment:Credited, duplicate test. Creatinine See Comment 0.80 - 1.30 mg/dL [facility] Comment:Credited, duplicate test. Glucose See Comment 70 - 199 mg/dL [facility] Comment: Credited, duplicate test. Interpretive Data Fasting glucose >/= 126 mg/dl is diagnostic for diabetes. ?? Fasting is defined as no caloric intake for at least 8 hours. Fasting glucose between 100 mg/dl to 125 mg/dl is diagnostic of prediabetes. In a patient with classic symptoms of hyperglycemia or hyperglycemic crisis, a random glucose >/= 200 mg/dl is diagnostic for diabetes. In the absence of unequivocal hyperglycemia, results should be confirmed by repeat testing. The classification and Diagnosis of Diabetes Diabetes Care 2021; 46: S19-S40. Current interpretive data was last revised 2022. Calcium See Comment 8.5 - 10.3 mg/dL [facility] Comment:Credited, duplicate test. Bilirubin, total See Comment 0.1 - 1.2 mg/dL [facility] Comment:Credited, duplicate test. Protein, pl See Comment 6.5 - 8.5 g/dL [facility] Comment:Credited, duplicate test. Albumin See Comment 3.5 - 5.0 g/dL [facility] Comment:Credited, duplicate test. Alk phos See Comment 40 - 130 Units/L [facility] Comment:Credited, duplicate test. ALT See Comment 7 - 55 Units/L [facility] Comment:Credited, duplicate test. AST See Comment 10 - 50 Units/L [facility] Comment:Credited, duplicate test. Blood 08/14/2024 7:10 AM CDT 08/14/2024 7:45 AM CDT Susan Zhou MD LAB BLOOD ORDERABLES Ed ited Result - Final [facility] Department [place] [address] * AudBase Results (08/02/2024 10:02 AM CDT) us Provider Scanning AUDIOLOGY SERVICES ORDERABLES Final Result * XR Chest Pa Lateral 2 Views (08/02/2024 9:34 AM CDT) Anatomical Region Laterality Modality Body, Chest N/A Computed Radiogr aphy 08/02/2024 10:2 0 AM CDT Impressions 08/02/2024 10:20 AM CDT Stable cardiomediastinal silhouette with upper normal to mildly enlarged heart size. 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 ?? New patchy airspace opacities in the left lower lobe retrocardiac region could be due to aspiration or pneumonia. ??Recommend radiographic follow-up in 4-6 weeks to assess resolution. Right lung is clear. ??No pleural effusion or pneumothorax. Electronically signed by: Jez Elizondo M.D. Narrative 08/02/2024 10:20 AM CDT EXAMINATION: 2 view chest radiograph COMPARISON: 03/20/2024 Procedure Note Jez Elizondo MD - 08/02/2024 EXAMINATION: 2 view chest radiograph COMPARISON: 03/20/2024 IMPRESSION: Stable cardiomediastinal silhouette with upper normal to mildly enlarged heart size. 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 New patchy airspace opacities in the left lower lobe retrocardiac region could be due to aspiration or pneumonia. Recommend radiographic follow-up in 4-6 weeks to assess resolution. Right lung is clear. No pleural effusion or pneumothorax. Electronically signed by: Jez Elizondo M.D. Susan Zhou MD IMG XR PROCEDURES Final Result * (ABNORMAL) CBC with auto differential (08/02/2024 7:16 AM CDT) WBC 5.4 3.8 - 9.9 K/cumm Comment:Testing performed by : [facility], [address] [place] [address] Hgb 12.9(L) 13.0 - 17.5 g/dL [facility] Comment:Testing performed by : [facility], [address] [place] [address] Hct 38.0(L) 38.9 - 50.3 % [facility] Comment:Testing performed by : [facility], [address] [place] [address] Plt 263 150 - 400 K/cumm [facility] Comment:Testing performed by : [facility], [address] [place] [address] MPV 8.5 6.8 - 10.4 fL [facility] Comment:Testing performed by : [facility], [address] [place] [address] RBC 3.40(L) 4.30 - 5.80 M/cumm [facility] Comment:Testing performed by : [facility], [address] [place] [address] MCV 111.7(H) 81.3 - 96.4 fL [facility] Comment:Testing performed by : [facility], [address] [place] [address] MCH 38.0(H) 27.1 - 33.3 pg [facility] Comment:Testing performed by : [facility], [address] [place] [address] MCHC 34.0 32.3 - 35.7 g/dL [facility] Comment:Testing performed by : [facility], [address] [place] [address] RDW CV 13.5 11.1 - 14.9 % [facility] Comment:Testing performed by : [facility], [address] [place] [address] NRBC abs 0.00 0.00 - 0.01 K/cumm [facility] Comment:Testing performed by : [facility], [address] [place] [address] Blood 08/02/2024 7:16 AM CDT 08/02/2024 7:17 AM CDT Anita Gillespie MD LAB BLOOD ORDERABLES Edite d Result - Final [facility] Department [place] [address] * (ABNORMAL) Manual Differential (08/02/2024 7:16 AM CDT) Cells Counted 184 Comment:Testing performed by : [facility], [address] [place] [address] Neutrophil abs 1.0(L) 1.5 - 6.5 K/cumm [facility] Comment:Testing performed by : [facility], [address] [place] [address] Lymphocyte abs 1.7 0.8 - 3.3 K/cumm [facility] Comment:Testing performed by : [facility], [address] [place] [address] Monocyte abs 2.2(H) 0.2 - 0.8 K/cumm [facility] Comment:Testing performed by : [facility], [address] [place] [address] Eosinophil abs 0.1 0.0 - 0.5 K/cumm [facility] Comment:Testing performed by : [facility], [address] [place] [phone] Basophil abs 0.1 0.0 - 0.1 K/cumm [facility] Comment:Testing performed by : [facility], [address] [place] [phone] Neutrophil pct 18.0 % [facility] Comment: Interpretive Data Percent cell count reference ranges are not reported, since discordance with absolute values may lead to misinterpretation of CBC data. Current Interpretive Data was last revised on 2018. Testing performed by: [facility], [address] [place] [phone] Lymphocyte pct 32.0 % [facility] Comment: Interpretive Data Percent cell count reference ranges are not reported, since discordance with absolute values may lead to misinterpretation of CBC data. Current Interpretive Data was last revised on 2018. Testing performed by: [facility], [address] [place] [phone] Monocyte pct 40.0 % [facility] Comment: Interpretive Data Percent cell count reference ranges are not reported, since discordance with absolute values may lead to misinterpretation of CBC data. Current Interpretive Data was last revised on 2018. Testing performed by: [facility], [address] [place] [phone] Eosinophil pct 2.0 % [facility] Comment: Interpretive Data Percent cell count reference ranges are not reported, since discordance with absolute values may lead to misinterpretation of CBC data. Current Interpretive Data was last revised on 2018. Testing performed by: [facility], [address] [place] [phone] Basophil pct 2.0 % [facility] Comment: Interpretive Data Percent cell count reference ranges are not reported, since discordance with absolute values may lead to misinterpretation of CBC data. Current Interpretive Data was last revised on 2018. Testing performed by: [facility], [address] [place] [phone] Metamyelocyte pct 3.0 % [facility] Comment:Testing performed by : [facility], [address] [place] [phone] Variant lymph pct 2.0 % [facility] Comment:Testing performed by : [facility], [address] [place], [place] [phone] Other cell pct 1.0 % [facility] Comment:Testing performed by : [facility], [address] [place], [place] [phone] Anisocytosis 1+(A) [facility] Comment:Testing performed by : [facility], [address] [place], [place] [phone] Poikilocytosis 1+(A) [facility] Comment:Testing performed by : [facility], [address] [place], [place] [phone] Microcytes 1+(A) [facility] Comment:Testing performed by : [facility], [address] [place], [place] [phone] Macrocytes 1+(A) [facility] Comment:Testing performed by : [facility], [address] [place] [phone] Target cells 1+(A) [facility] Comment:Testing performed by : [facility], [address] [place], [place] [phone] Platelet estimate Adequate [facility] Comment:Testing performed by : [facility], [address] [place], [place] [phone] Blood 08/02/2024 7:16 AM CDT 08/02/2024 7:17 AM CDT us Anita Gillespie MD LAB BLOOD ORDERABLES Final Result [facility] Department [place] [address] * eGFR (08/02/2024 7:10 AM CDT) eGFR >90 >=60 mL/min/1. 73 m2 Comment: Interpretive Data Reference Interval Normal ?>/= 90 mL/min/1.73m2 Mildly decreased* ? 60 - 89 mL/min/1.73m2 Mildly to moderately decreased ?45 - 59 mL/min/1.73m2 Moderately to severely decreased ??30 - 44 mL/min/1.73m2 Severely decreased ?15 - 29 mL/min/1.73m2 Kidney Failure ?< 15 ??mL/min/1.73m2 *Relative to young adult level Estimated glomerular filtration rate is determined by the 2020 CKD-EPI equation recommended by the National Kidney Foundation (A Unifying Approach to GFR Estimation: Recommendations of the NKF-ASK Task Force on Reassessing the Inclusion of Race in Diagnosing Kidney Disease, JASN 2020). The CKD-EPI equation should not be used for patients with unstable renal function and has not been validated in children and those over 70. Current interpretive data was last reviewed 2021. Blood 08/02/2024 7:10 AM CDT 08/02/2024 7:27 AM CDT us Anita Gillespie MD LAB BLOOD ORDERABLES Final Result Performing Organization Address [facility] de Phone Number [facility] [place] [address] * (ABNORMAL) Lactate dehydrogenase (LD) (08/02/2024 7:10 AM CDT) Lactate dehydrogenase (LDH) 260(H) 100 - 250 Units/L Blood 08/02/2024 7:10 AM CDT 08/02/2024 7:27 AM CDT Anita Gillespie MD LAB BLOOD ORDERABLES Final Result Performing Organization Address [facility] de Phone Number [facility] [place] [address] * (ABNORMAL) IgG (08/02/2024 7:10 AM CDT) [facility] Immunoglobulin G 673(L) 700 - 1,600 mg/dL Blood 08/02/2024 7:10 AM CDT 08/02/2024 7:56 AM CDT Anita Gillespie MD LAB BLOOD ORDERABLES Final Result Performing Organization Address [facility] Co de Phone Number [facility] [place] [address] * (ABNORMAL) Comprehensive metabolic panel (08/02/2024 7:10 AM CDT) [facility] Sodium 138 135 - 145 mmol/L Potassium, pl 4.7 3.3 - 4.9 mmol/L [facility] Chloride 108 97 - 110 mmol/L [facility] CO2 25 22 - 32 mmol/L [facility] Anion gap 5 2 - 15 mmol/L [facility] BUN 19 6 - 25 mg/dL [facility] Creatinine 1.07 0.80 - 1.30 mg/dL [facility] Glucose 115 70 - 199 mg/dL [facility] Comment: Interpretive Data Fasting glucose >/= 126 mg/dl is diagnostic for diabetes. ?? Fasting is defined as no caloric intake for at least 8 hours. Fasting glucose between 100 mg/dl to 125 mg/dl is diagnostic of prediabetes. In a patient with classic symptoms of hyperglycemia or hyperglycemic crisis, a random glucose >/= 200 mg/dl is diagnostic for diabetes. In the absence of unequivocal hyperglycemia, results should be confirmed by repeat testing. The classification and Diagnosis of Diabetes Diabetes Care 202; 46: S19-S40. Current interpretive data was last revised 2022. Calcium 8.6 8.5 - 10.3 mg/dL [facility] Bilirubin, total 1.1 0.1 - 1.2 mg/dL [facility] Protein, pl 5.6(L) 6.5 - 8.5 g/dL [facility] Albumin 3.0(L) 3.5 - 5.0 g/dL [facility] Alk phos 261(H) 40 - 130 Units/L [facility] ALT 22 7 - 55 Units/L [facility] AST 32 10 - 50 Units/L [facility] Blood 08/02/2024 7:10 AM CDT 08/02/2024 7:27 AM CDT us Anita Gillespie MD LAB BLOOD ORDERABLES Final Result [facility] [place] [address] * Hepatitis panel, acute Blood (02/18/2024 4:15 PM CDT) Hep A IgM Nonreactive Nonreactive Hep B core IgM Nonreactive Nonreactive [facility] Hep C Ab Nonreactive Nonreactive [facility] Comment:Antibodies to HCV no t detected. Does NOT exclude the possibility of recent exposure to HCV. Current interpretive data was last revised on 22 HepBsAg Nonreactive Nonreactive [facility] Blood 02/18/2024 4:15 PM CDT 02/18/2024 4:28 PM CDT us Jinny Salmon NP LAB MICROBIOLOGY - GENER AL ORDERABLES Final Result [facility] Department [place] [address] from Last 3 Months or Most Recently Relevant to Health Maintenance Insurance [facility] Advance Directives For more information, please contact: [phone] * Full Code (Latest Code Status on File) Date Activated Date Inactivated Comments 02/21/2024 5:35 AM 02/26/2024 6:41 PM * Full Code Date Activated Date Inactivated Comments 02/18/2024 2:57 PM 02/21/2024 5:35 AM * Full Code Date Activated Date Inactivated Comments 10/03/2023 9:58 PM 10/13/2023 6:40 PM * Full Code Date Activated Date Inactivated Comments 09/03/2023 7:51 AM 09/03/2023 7:16 PM * Full Code Date Activated Date Inactivated Comments 08/27/2023 12:20 PM 09/03/2023 7:51 AM Care Teams Java Designer Relationship Specialty Start Date End Date Guero Colunga DO [address] [address] PCP - General Internal Medicine 08/02/24 Amber Montesinos, [facility] Medicine Director Transplant 11/17/19 Jil Duncan MD Consulting Physician Infectious Diseases 01/10/20 Anita Gillespie MD Medical Oncologist/Automatic Stacker Medical Oncology 10/07/20 Tabitha Hurley MD [address] [place] [address] Consulting Physician Rheumatology 10/22/21 Massiel Gastelum MD [address] [place] [address] Consulting Physician Otolaryngology 08/27/22
--- OUTSIDE RECORDS SUMMARY | 2024-10-28 06:02 | XMS_ITS | Encounter Summary ---
Author Organization [facility] Address [address] [place] [address] Phone Care Team Providers Care Ornamental Iron Erector Name Role Phone Amber Montesinos RN Unavailable [phone] Jil Duncan MD Unavailable [phone] Anita Gillespie MD Unavailable [phone] Tabitha Hurley MD Unavailable [phone] Massiel Gastelum MD Unavailable [phone] Guero Colunga DO Primary Care Provider [phone] Encounter Details Date Type Department Care Team (Late st Contact Info) Description 09/26/2024 Orders Only [facility] ENT [address] [facility] Medical Office Building [address] [place] [phone] Massiel Gastelum MD [address] [facility] [address] [place] [address] Social History Tobacco Use Types Packs/Day Years Used Date Smoking Tobacco: Never Smokeless Tobacco: Current Chew Comments:Chews tobacco on o ccasion Alcohol Use Standard Drinks/Week Comments Yes 0 (1 standard drink = 0.6 oz pur e alcohol) occassional OASIS D0700: Social Isolation Answer Da te Recorded Frequency of experiencing loneliness or isolatio n Never 02/29/2024 [facility] Utilities Answer Date Recorded In the [...] often do you attend chur ch or religion services? 1 to 4 times per year 02/23/2024 Do you belong to any clubs o r organizations such as scientology groups, unions, fraternal or athletic groups, or [...] place to sleep or slept in a correction (including now)? No 02/23/2024 Personal Safety Answer Date Recorded Have you ever been in or are you currently in a harmful physical or emotional relationship or is someone making you feel afraid or unsafe? 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 Gender Identity Not on file Sexual Orientation Straight 08/22/2021 9: 23 AM CDT documented as of this encounter Ordered Prescriptions Prescription Sig Dispense Quantity Refills Last Filled Start Date End Date ofloxacin (FLOXIN) 0.3 % otic solution Administer 5 drops into the left ear daily for 7 days 5 mL 09/26/2024 4 amoxicillin-clavul anate (AUGMENTIN) 875-125 mg per tablet Take 1 tablet by mouth 2 (two) times a day for 14 days 28 tablet 09/26/2024 4 documented in this encounter Plan of Treatment Scheduled Procedures Name Priority Associated Diagnoses Date/Ti me COLONOSCOPY Encounter for screening for colorectal cancer in high risk patient Family history of rectal cancer documented as of this encounter Visit Diagnoses Not on filedocumented in this encounter Care Teams Ornamental Iron Erector Relationship Specialty Start Date End Date Guero Colunga DO [address] [facility] [address] [place] [address] PCP - General Internal Medicine 08/02/24 Amber Montesinos RN Tree Trimming Line Technician Transplant 11/17/19 Jil Duncan MD Consulting Physician Infectious Diseases 01/10/20 Anita Gillespie MD Medical Oncologist/Wood Drill Operator Medical Oncology 10/07/20 Tabitha Hurley MD [address] [facility] [address] [place], [place] [id number] Consulting Physician Rheumatology 10/22/21 Massiel Gastelum MD [address] [place], [place] [id number] Consulting Physician Otolaryngology 08/27/22 documented as of this encounter
--- OUTSIDE RECORDS SUMMARY | 2024-10-28 06:02 | XMS_ITS | Encounter Summary ---
Author Organization [facility] Address [address] [place] [address] Phone Care Team Providers Care Court Manager Name Role Phone Amber Montesinos RN Unavailable [phone] Jil Duncan MD Unavailable [phone] Anita Gillespie MD Unavailable [phone] Tabitha Hurley MD Unavailable [phone] Massiel Gastelum MD Unavailable [phone] Guero Colunga DO Primary Care Provider Encounter Details Date Type Department Care Team (Late st Contact Info) Description 08/25/2024 [facility] - [facility] ENT [address] [facility] 11th [place] [address] [place] [address] Danae Frazier CMA Social History Tobacco Use Types Packs/Day Years Used Date Smoking Tobacco: Never Smokeless Tobacco: Current Chew Comments:Chews tobacco on o ccasion Alcohol Use Standard Drinks/Week Comments Yes 0 (1 standard drink = 0.6 oz pur e alcohol) occassional OASIS D0700: Social Isolation Answer Da te Recorded Frequency of experiencing loneliness or isolatio n Never 02/29/2024 [facility] Utilities Answer Date Recorded In the [...] often do you attend chur ch or church services? 1 to 4 times per year 02/23/2024 Do you belong to any clubs o r organizations such as gnosticism groups, unions, fraternal or athletic groups, or [...] place to sleep or slept in a snf (including now)? No 02/23/2024 Personal Safety Answer Date Recorded Have you ever been in or are you currently in a harmful physical or emotional relationship or is someone making you feel afraid or unsafe? 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 Gender Identity Not on file Sexual Orientation Straight 08/22/2021 9: 23 AM CDT documented as of this encounter Miscellaneous Notes * Telephone Encounter - Danae Frazier CMA - 08/25/2024 3:50 PM CDT Scripts sent and pt has been notified documented in this encounter Plan of Treatment Scheduled Procedures Name Priority Associated Diagnoses Date/Ti me COLONOSCOPY Encounter for screening for colorectal cancer in high risk patient Family history of rectal cancer documented as of this encounter Visit Diagnoses Not on filedocumented in this encounter Care Teams Court Manager Relationship Specialty Start Date End Date Guero Colunga DO [address] [facility] [address] [facility] [address] [place] [address] PCP - General Internal Medicine 08/02/24 Amber Montesinos, SHAILESH Anesthesiology Physician Transplant 11/17/19 Jil Duncan MD Consulting Physician Infectious Diseases 01/10/20 Anita Gillespie MD Medical Oncologist/Cloth Opener Hand Medical Oncology 10/07/20 Tabitha Hurley MD [address] [place] [address] Consulting Physician Rheumatology 10/22/21 Massiel Gastelum MD [address] [place] [address] Consulting Physician Otolaryngology 08/27/22 documented as of this encounter
--- OUTSIDE RECORDS SUMMARY | 2024-10-28 06:02 | XMS_ITS | Encounter Summary ---
Author Organization [facility] Address [address] [place] [address] Care Team Providers Care Supervisor Assembly Room Name Role Phone Amber Montesinos RN Unavailable [phone] Jil Duncan MD Unavailable [phone] Anita Gillespie MD Unavailable [phone] Tabitha Hurley MD Unavailable [phone] Massiel Gastelum MD Unavailable [phone] Guero Colunga DO Primary Care Provider [phone] Encounter Details Date Type Department Care Team (Late st Contact Info) Description 08/24/2024 Orders Only [facility] Transplant Liver [address] [facility] [phone] [place] [address] Amber Montesinos, RN Social History Tobacco Use [...] Recorded In the past 12 months has [employer], gas, oil, or water [employer] threatened to shut off services in your [...] often do you attend chur ch or yazdanism services? 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 Gender Identity Not on file Sexual Orientation Straight 08/22/2021 9: 23 AM CDT documented as of this encounter Plan of Treatment Scheduled Procedures Name Priority Associated Diagnoses Date/Ti me COLONOSCOPY Encounter for screening for colorectal cancer in high risk patient Family history of rectal cancer documented as of this encounter Visit Diagnoses Not on filedocumented in this encounter Care Teams Supervisor Assembly Room Relationship Specialty Start Date End Date Guero Colunga DO [address] [facility] 21 [place] [address] PCP - General Internal Medicine 08/02/24 Amber Montesinos RN Fire Suppression Captain Transplant 11/17/19 Jil Duncan MD Consulting Physician Infectious Diseases 01/10/20 Anita Gillespie MD Medical Oncologist/Associate Store Director Medical Oncology 10/07/20 Tabitha Hurley MD [address] [facility] 14 [place] [address] Consulting Physician Rheumatology 10/22/21 Massiel Gastelum MD [address] [place] [address] Consulting Physician Otolaryngology 08/27/22 documented as of this encounter
--- OUTSIDE RECORDS SUMMARY | 2024-10-28 06:02 | XMS_ITS | Clinical Summary ---
Author Organization [facility] al Address [address] [place] [address] Care Team Providers Care Stage Set Designer Name Role Phone Amber Montesinos RN Unavailable [phone] Jil Duncan MD Unavailable [phone] Anita Gillespie MD Unavailable [phone] Tabitha Hurley MD Unavailable [phone] Massiel Gastelum MD Unavailable Guero Colunga DO Primary Care Provider [phone] Allergies No known active allergies Medications tacrolimus [...] day for 14 days 28 tablet 09/26/20 024 ofloxacin (FLOXIN) 0.3 % otic solution Administer 5 drops into the left ear daily for 7 days 5 mL 09/26/20 024 Active Problems Patient Care Coordination No te Formatting of this note migh t be different from the original. Labs as of 09/11/23: [facility] P: [phone] F: [phone] Labs: [facility]- in care everywhere Problem Noted Date Diagnosed Date Chronic [...] scheduled for 2nd dose on 03/28 at [facility] infusion center in [place], [place] to complete planned 6 weeks of therapy Assessment & Plan (02/21/2024 4:11 PM CDT): Arrived in septic shock requiring low-dose levophed for <24 hours. - BCx 02/17 and 02/18 BC +MSSA 2/, source likely PNA versus sinusitis with workup [...] LLL - Repeat chest X-ray today Shock ([facility]) 02/18/2024 Assessment & Plan (02/20/2024 12:30 PM [...] Albumin 2.5. 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 Now on monthly Cutaquig, last dose 02/13. - Med onc c/s. Assessment & Plan (02/20/2024 10:19 AM CDT): on IVIg, last infusion 10/09/23; now on monthly SQ Cutaquig 16.5%, last dose 02/14/24 [facility] Portal hypertension (CMS/HCC) 02/18/2024 Assessment & [...] 11/29/2023 Assessment & Plan (11/29/2023 1:08 PM LEAD CUSTOMER SERVICE 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): - Recent hospitalization where he was found [...] CT PE chest later this week at [facility]. He will call with any worsening symptoms. Edema of left lower extremity 10/11/2023 Assessment & Plan (10/12/2023 6:24 PM LEAD CUSTOMER SERVICE 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): Nontender and he has been preferentially leaning [...] 10/11/2023 Assessment & Plan (10/13/2023 10:55 AM LEAD CUSTOMER SERVICE 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): - Pt developed respiratory failure in setting [...] opacities. Assessment & Plan (10/11/2023 5:06 PM LEAD CUSTOMER SERVICE 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): Mr. Nichols is a 28 yo M [...] 92% Assessment & Plan (10/12/2023 6:21 PM LEAD CUSTOMER SERVICE 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): - secondary to pneumonia and loculated parapneumonic [...] 02/15/2020 Assessment & Plan (11/29/2023 1:05 PM LEAD CUSTOMER SERVICE 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): - LFTs all improving. No jaundice, abdominal [...] letermovir Assessment & Plan (11/29/2023 1:05 PM LEAD CUSTOMER SERVICE 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): - Clinically doing well on exam today [...] CMV PCR monthly. Standing orders faxed to [facility] in [place], [place]. Printed orders also given to [facility] [...] cell therapy that is being performed in [place] through clinical trial as he seems to [...] pending Assessment & Plan (11/24/2021 1:22 PM LEAD CUSTOMER SERVICE 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): - Remains on high dose Valcyte at [...] outpatient. We have also been speaking with [employer] regarding obtaining letermovir for him as it [...] I ordered additional standing CMV labs for [facility] to be drawn weekly. - Discussed with patient the rational for treatment, culture results, risk of recurrent infection, signs/symptoms of recurrent infection, and to contact ID clinic with any questions or concerns Assessment & Plan (10/13/2021 2:32 PM LEAD CUSTOMER SERVICE 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): - Reports doing well on induction dosing [...] denied. He is now working with drug wellness specialist ([employer]) to receive medication via the patient assistance program. For now, he should continue on Valcyte. - He is scheduled to have labs drawn on Wednesday at [facility]. Recommend weekly CMV level until undetectable and at that point he may be able to decrease Valcyte to maintenance dosing. 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 ??Following this his prophylactic valgancyclovir was increased to treatment dose of 900mg BID. Titers have continued to increase: 530 on 12/02, 626 on 12/09, 940 on 12/16. -f/u CMV DNA -continue valgancyclovir 900mg BID Assessment & Plan (12/22/2019 7:38 AM LEAD CUSTOMER SERVICE 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): Patient had peripheral blood CMV PCR detectable [...] done. 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 Now with WBC 12.6, RVP +adeno/parainfluenza. CXR finding of possible RML pneumonia. Afebrile here now and HD stable with softer Bps. -s/p 1L NS in [facility]; will give second bolus given softer Bps and poor po intake -s/p cefepime 1g in [facility], transition to azithro 500mg today and then 250mg tomorrow, CTX 2g q24h starting tomorrow -robitussin for cough prn -throat lozenge prn for sore throat -apap 500 q6h prn for fevers -f/u blood cultures x2 Lymphadenopathy 01/06/2019 Assessment & Plan (12/22/2019 9:53 AM LEAD CUSTOMER SERVICE 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): BL cervical LAD palpable on physical exam, these have been present for several weeks -patient plans to follow-up with??Dr. Gillespie Assessment & Plan (12/21/2019 6:23 PM LEAD CUSTOMER SERVICE 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): BL cervical LAD palpable on physical exam, these have been present for several weeks -patient plans to follow-up with??Dr. Gillespie Assessment & Plan (10/10/2019 8:38 PM LEAD CUSTOMER SERVICE 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): BL cervical LAD palpable on physical exam, worsening per patient ongoing for 3-4 weeks. -Case was discussed in [facility] with Dr. Gillespie's team and plan for PET scan and lymph node biopsy while admitted with no steroids while inpatient. 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 Follows with Dr. Head - Med/Onc following Assessment & Plan (10/09/2023 10:55 PM LEAD CUSTOMER SERVICE 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): -S/p OLT '99 c/b PTLD diagnosed in 2016, last chemo in 2018 -Med onc consult [...] C3 only d/t intracranial hypotension, w/ post-C2 PA, CR at end-of treatment. No e/o recurrence [...] C3 only d/t intracranial hypotension, w/ post-C2 PA, CR at end-of treatment. No e/o recurrence though course complicated by multiple episodes of progressive adenopathy w/ spontaneous resolution. -Followed by Dr. Gillespie, on observation - Med Onc consult inpatient Assessment & Plan (12/22/2019 9:33 AM LEAD CUSTOMER SERVICE 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): Follows with Dr. Gillespie. PET 07/13/19: Interval increase in size of diffuse lymphadenopathy both above and below diaphragm, considerably worse than last scan on 01/23/19. -defer management to outpatient physician Assessment & Plan (12/21/2019 6:24 PM LEAD CUSTOMER SERVICE 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): Follows with Dr. Gillespie. PET 07/13/19: Interval increase in size of diffuse lymphadenopathy both above and below diaphragm, considerably worse than last scan on 01/23/19. -defer management to outpatient physician Assessment & Plan (10/10/2019 8:42 PM LEAD CUSTOMER SERVICE 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): Follows with Dr. Gillespie. 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 Grseham -c/wendie tacro 0.5mg BID -c/w valcyte 900mg BID Assessment & Plan (12/21/2019 6:24 PM LEAD CUSTOMER SERVICE 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): Follows with Dr. Gresham -marcus/wendie tacro 0.5mg BID -c/w valcyte 900mg BID Assessment & Plan (10/10/2019 8:39 PM LEAD CUSTOMER SERVICE 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): Follows with Dr. 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 Assessment & Plan (10/02/2024 1:34 PM LEAD CUSTOMER SERVICE 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): - Doing well today with no acute [...] time Assessment & Plan (10/09/2023 10:53 PM LEAD CUSTOMER SERVICE 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): - hx of longer term CMV viremia [...] concerns Assessment & Plan (01/05/2022 12:59 PM LEAD CUSTOMER SERVICE 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): - Remains on IV ganciclovir with no [...] 2012 Assessment & Plan (10/09/2023 10:54 PM LEAD CUSTOMER SERVICE 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): - On IVIG q4-6 weeks, received 10/09 [...] 10/03/202310/13 Assessment & Plan (10/10/2023 4:40 PM LEAD CUSTOMER SERVICE 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): - initially planned to complete empiric 7 [...] 10/09/2023 Assessment & Plan (12/22/2019 7:46 AM LEAD CUSTOMER SERVICE 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): Patient has fever 2 days with sore [...] inpatient management. ID will arrange follow up Encounters Date Type Department Care Team Description 10/20/2024 Orders Only [facility] Oncology [address] [place] [address] Emili Jones NP 10/02/2024 8:20 AM LEAD CUSTOMER SERVICE 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 Telemedicine [facility] Infectious Diseases [address] [place] [address] Lisandra Auguste NP Cytomegalovirus infection, unspecified cytomegaloviral infection type (HCC) (Primary Dx) 09/26/2024 Orders Only [facility] ENT [address] [place] [id number] Massiel Gastelum MD 09/15/2024 2:00 PM LEAD CUSTOMER SERVICE 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 Office Visit [facility] Pulmonary [address] [facility] [address] 8th [place] [address] [place] [address] Adolfo Tapia MD Chronic cough; History of liver transplant (CMS/HCC) (HCC); Recurrent pneumonia 09/15/2024 12:35 PM LEAD CUSTOMER SERVICE 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 - 09/15/2024 11:59 PM LEAD CUSTOMER SERVICE 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 Hospital Encounter [facility] Pulmonary [address] [facility] [address] [place] [address] Chronic cough Discharge Disposition: Discharge to home or self care 09/15/2024 11:19 AM LEAD CUSTOMER SERVICE 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 - 09/15/2024 11:59 PM LEAD CUSTOMER SERVICE 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 Hospital Encounter [facility] [address] [place] [address] Chronic cough Discharge Disposition: Discharge to home or self care 09/15/2024 Documentation [facility] and Transplant Liver [address] Mailstop [phone] [place] [address] Amber Montesinos RN 09/04/2024 Orders Only [facility] Pulmonary [address] [facility] 8th [place] [address] [place] [address] Adolfo Tapia MD Chronic cough (Primary Dx) 08/25/2024 Telephone [facility] ENT [address] [facility] 11th [place] [address] [place] [address] Danae Frazier CMA 08/24/2024 Documentation [facility] and Transplant Liver [address] Mailstop [phone] [place] [address] Amber Montesinos, SHAILESH 08/24/2024 Orders Only [facility] and Transplant Liver [address] Mailstop [phone] [place] [address] Amber Montesinos, SHAILESH 08/22/2024 Telephone [facility] and Transplant Liver [address] Mailstop [phone] [place] [address] Amber Montesinos, SHAILESH 08/15/2024 Orders Only [facility] Pulmonary [address] [facility] 8th [place] [address] [place] [address] Adolfo Tapia MD Chronic cough (Primary Dx) 08/15/2024 Orders Only [facility] Pulmonary [address] [facility] 8th [place] [address] [place] [address] Adolfo Tapia MD Chronic cough (Primary Dx) 08/14/2024 7:20 AM CDT Lab [facility] [address] [place] [address] 08/14/2024 7:05 AM CDT Lab [facility] [address] [place] [address] 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HCC); History of liver transplant (CMS/HCC) (HCC) 08/14/2024 7:03 AM CDT - 08/14/2024 11:59 PM CDT Hospital Encounter [facility] ([facility]) [address] [place] [address] Chronic cough; History of liver transplant (CMS/HCC) (HCC); Recurrent pneumonia Discharge Disposition: Discharge to home or self care 08/11/2024 Telephone [facility] Oncology [address] [place] [address] Emili Jones NP 08/03/2024 Telephone [facility] and Transplant Liver [address] [facility] [address] Mailstop [phone] [place] [address] Amber Montesinos, SHAILESH 08/03/2024 Telephone [facility] and Transplant Liver [address] [facility] [address] Mailstop [phone] [place] [address] Amber Montesinos, SHAILESH 08/02/2024 10:20 AM CDT Procedure visit [facility] Otolaryngology [address] [place] [address] Advanced Medicine 11th [place] [address] [place] [address] Leyla Sorensen Au.D. Mixed conductive and sensorineural hearing loss of both ears (Primary Dx) 08/02/2024 9:23 AM CDT - 08/02/2024 11:59 PM CDT Hospital Encounter [facility] ([facility]) [address] [place] [address] Susan Zhou MD History of liver transplant (CMS/HCC) (HCC); Chronic cough Discharge Disposition: Discharge to home or self care 08/02/2024 9:00 AM CDT Office Visit [facility] Gasteroenterology [address] [place] [address] Advanced Medicine 12th [place] [address] [place] [address] Susan Zhou MD Chronic cough (Primary Dx); History of liver transplant (CMS/HCC) (HCC); 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HCC); Encounter for therapeutic drug level monitoring 08/02/2024 7:45 AM CDT Office Visit [facility] Oncology [address] [place] [address] Emili Jones NP 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) (Primary Dx) 08/02/2024 7:15 AM CDT Lab [facility] [facility] [address] [facility] [address] [place] [address] 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); Hypogammaglobulinemia (HCC) from Last 3 Months Immunizations Name Administration Dates Next Due Influenza, Quadrivalent, Elana l Culture-based MDCK, Preservative Free, Antibiotic Free, Intramuscular 09/28/2018 [employer] ([employer]) SARS-CoV-2 Vaccination 02/08/2021 Meningococcal Conjugate (Menveo) 11/11/2012 Meningococcal MCV4P (Menactra) 11/11/2012 Pfizer SARS-CoV-2 Monovalent Vaccination (12+ Yrs) PURPLE 05/13/2022 Pneumococcal Conjugate Pcv20 03/20/2024 Pneumococcal Polysaccharide PPV23 11/11/2012 Pneumococcal, Unspecified 08/10/2013 Tdap 06/16/2021 Surgical History Surgery Date Site/Laterality Comments BIOPSY LYMPH NODE SUPERFICIAL 05/22/2014 N/A US ABDOMEN COMPLETE W LIVER DOPPLER (C) 10/18/2018 Right US GUIDED BIOPSY LIVER 10/18/2018 N/A SPLENECTOMY 11/01/2012 - 10/31/2013 US GUIDED BIOPSY LYMPH NODE SUPERFICIAL LEFT 10/13/2019 N/A LIVER TRANSPLANT 11/01/1998 - 10/31/1999 BIOPSY LIVER 02/02/2020 N/A US GUIDED BIOPSY LIVER 05/14/2020 N/A US GUIDED BIOPSY LYMPH NODE SUPERFICIAL LEFT 10/07/2021 N/A IR PICC LINE PLACEMENT > 5 YEARS 12/19/2021 N/A EXCHANGE PICC LINE 12/24/2021 Left IR PICC LINE PLACEMENT > 5 YEARS 12/26/2021 N/A OTHER SURGICAL HISTORY 01/06/2019 Excisional lymph node biopsy of neck US GUIDED BIOPSY LIVER 08/31/2022 N/A FUNCTIONAL ENDOSCOPIC SINUS SURGERY 08/28/2022 IR PICC LINE PLACEMENT > 5 YEARS 2024 - 02/29/2024 removed in March 2024 WISDOM TOOTH EXTRACTION COLONOSCOPY 11/01/2022 - 10/31/2023 UPPER GASTROINTESTINAL ENDOSCOPY BRONCHOSCOPY TYMPANOSTOMY TUBE PLACEMENT 04/28/2024 Bilateral Medical History Medical History Date Comments Other complications of unspe cified transplanted organ and tissue PTLD (post-transplant lymphoproliferative disorder) - (Added by TW Conv) Generalized enlarged lymph nodes Lymphadenopathy, generalized - (Added by TW Conv) Localized enlarged lymph nodes L AD (lymphadenopathy), mediastinal - (Added by TW Conv) History of non-Hodgkin's lymphoma History of non-Hodgkin's lymphoma - (Added by TW Conv) Pulmonary emboli (HCC) CMV (cytomegalovirus infecti on) (HCC) PNA (pneumonia) Community acquired pneumonia of right middle lobe of lung 01/06/2019 Cancer (CMS/HCC) (HCC) Chronic diarrhea Motion sickness riding in back s eat of car Family History Medical History Relation Name Comments No Known Problems Father Rectal cancer Mother Rectal cancer - (Added by TW Conv) Diabetes type II Sister Family hist ory of type 2 diabetes mellitus - (Added by TW Conv) Anesthesia problems Neg Hx Relation Name Status Comments Brother Alive Father Alive Mother Alive Other Sister Alive Social History Tobacco Use Types Packs/Day Years [...] In the past 12 months has e [employer], gas, oil, or water [employer] threatened to shut off services in your [...] week 02/23/2024 How often do you attend [facility] or islam services? 1 to 4 times per year 02/23/2024 Do you belong to any clubs o r organizations such as hindu groups, unions, fraternal or athletic groups, or [...] place to sleep or slept in a retirement (including now)? No 02/23/2024 Personal Safety Answer Date Recorded Have you ever been in or are you currently in a harmful physical or emotional relationship or is someone making you feel afraid or unsafe? Denies 04/28/2024 Sex and Gender Information Value Date Recorded Sex Assigned at Not on file Legal Sex Male 6:28 AM LEAD CUSTOMER SERVICE 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 Gender Identity Not on file Sexual Orientation Straight 08/22/2021 9: 23 AM CDT Obstetrics History Last Filed Vital Signs Vital Sign Reading Time Taken Comments Blood Pressure 111/67 09/15/2024 1:47 PM LEAD CUSTOMER SERVICE 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 Pulse 84 09/15/2024 1:47 PM LEAD CUSTOMER SERVICE 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 Temperature 36.4 ??C (97.6 ??F) 09/15/2024 1:47 PM CS T Respiratory Rate 18 09/15/2024 1:47 PM LEAD CUSTOMER SERVICE 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 Oxygen Saturation 99% 09/15/2024 1:47 PM LEAD CUSTOMER SERVICE 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 Inhaled Oxygen Concentration - - Weight 63.5 kg (140 lb) 09/15/2024 1:47 PM LEAD CUSTOMER SERVICE 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 Height 170.2 cm (5' 7 ) 09/15/2024 1:47 PM LEAD CUSTOMER SERVICE 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 Body Mass Index 21.93 09/15/2024 1:47 PM LEAD CUSTOMER SERVICE 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 Plan of Treatment Scheduled Procedures Name Priority Associated Diagnoses Date/Ti me COLONOSCOPY Encounter for screening for colorectal cancer in high risk patient Family history of rectal cancer Health Maintenance Due Date Last Done Comments Meningococcal B Vaccine (1 of 4 - Increased Risk) 2003 Varicella Vaccines (1 of 2 - 13+ 2-dose series) 2006 Hepatitis B Screening 2011 Regular Well Visit/Exam 18-64 2011 Zoster Vaccine (1 of 2) 02/01/2012 Covid-19 Vaccine ( season) 2024 05/13/2022, 02/08/2021 Influenza Vaccine (#1) 2024 09/28/2018 Depression Screening 10/03/2024 10/03/2023 DTaP/Tdap/Td Vaccine (2 - Td or Tdap) 06/16/2031 06/16/2021 Hepatitis C Screening Completed 02/18/2024 , 11/30/2017, 11/29/2017, Additional history exists Pneumococcal vaccine <65 Completed 024, 08/10/2013, 11/11/2012 HPV Vaccines Aged Out No longer eligi ble based on patient's age to complete this topic Medical Devices Implanted Type Area Php Programmer Device Identifier Shelf Expiration Date Model / Serial / Lot [employer] Bobbin 1.27mm 1.55mm Collar Button Tube Ventilation Fluoroplastic [id number] - [id number] Implanted:Qty: 1 on 04/28/2024 by Massiel Gastelum MD at [facility] Other - see comments Right: Ear [employer] [id number] 02/21/2027 [id number] / / [id number] Description:Ear tube [employer] Bobbin 1.27mm 1.55mm Collar Button Tube Ventilation Fluoroplastic [id number] - [id number] Implanted:Qty: 1 on 04/28/2024 by Massiel Gastelum MD at [facility] Other - see comments Left: Ear [employer] [id number] 02/21/2027 [id number] / / [id number] Description:Ear tube Explanted Type Area Php Programmer Device Identifier Shelf Expiration Date Model / Serial / Lot Button Ventilation Tube Explanted:Qty: 1 on 04/28/2024 at [facility] Other - see comments Left: Ear [employer] 10/31/2024 [id number] / / Description:Ear tube explant ed during case. Not previously documented as implanted. Procedures Procedure Name Priority Date/Time Associated Diagnosis Comments PULMONARY FUNCTION TEST (PFT) Routine 09/15/2024 1:34 PM LEAD CUSTOMER SERVICE 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 Chronic cough XR CHEST PA LATERAL 2 VIEWS Schedule Routine, Read Routine (OP Routine) 09/15/2024 11:23 AM LEAD CUSTOMER SERVICE 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 Chronic cough COMPREHENSIVE METABOLIC PANEL Routine 09/09/2024 [...] Pulmonary Function Test - (09/15/2024 1:34 PM LEAD CUSTOMER SERVICE 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) FVC PRE 2.54 L [facility] FVC %PRE PRED 52 % [facility] FVC POST 2.46 L [facility] FVC %POST PRED 50 % [facility] FEV1 PRE 1.87 L [facility] FEV1 %PRE PRED 46 % [facility] FEV1 POST 1.99 L [facility] FEV1 %POST PRED 49 % [facility] FEV1/FVC PRE 73.5 % [facility] FEV1/FVC POST 80.8 % [facility] FRC PL PRE 2.06 L [facility] FRC PL %PRE PRED 67 % [facility] RV PRE 1.41 L [facility] RV %PRE PRED 94 % [facility] TLC PRE 4.16 L [facility] TLC %PRE PRED 65 % [facility] DLCO PRE 13.6 ml/min/mmH g [facility] DLCO %PRE PRED 45 % [facility] FIO2 % 21.00 % [facility] PaO2 99.0 mmHg [facility] PaCO2 31.0 mmHg [facility] pH 7.44 [facility] A-aDO2 POC 12.0 mmHg [facility] COHb POC 0.8 % [facility] HCO3 21.1 mEq/L [facility] Anatomical Region Laterality Modality PFT 09/15/2024 12:3 9 PM LEAD CUSTOMER SERVICE 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 Narrative 09/18/2024 10:49 AM LEAD CUSTOMER SERVICE 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 Table formatting from the original result was not included. [facility] Division of Pulmonary & Critical Care Medicine [address] [place] [address]; [facility]; [place], [place] [address]; [phone] Pulmonary Function Laboratory Pulmonary Stress Test Simple/Oxygen [...] Work [distance (m) x body wt (kg)]: 75929 kg.m (normal >60,000kg.m) Oxygen required to maintain [...] with the written final report. PFT performed at:->[facility] Adult PFT Lab- CAM-8D Procedure:->Spirometry Procedure:->Spirometry with [...] and %HbO2 is age dependent. However, the [facility] Pulmonary Function Laboratory defines hypoxemia as a PaO2 <56 mm Hg or a %HbO2 <89%. Adolfo Tapia MD PFT ORDERABLES Final Result * XR Chest Pa Lateral 2 Views (09/15/2024 11:23 AM LEAD CUSTOMER SERVICE 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) Anatomical Region Laterality Modality Body, Chest N/A Computed Radiogr aphy 09/15/2024 11:4 5 AM LEAD CUSTOMER SERVICE 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 Impressions 09/15/2024 11:45 AM LEAD CUSTOMER SERVICE 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 Normal heart size and mediastinal contours. ??Unchanged [...] Jez Elizondo M.D. Narrative 09/15/2024 11:45 AM LEAD CUSTOMER SERVICE 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 EXAMINATION: 2 view chest radiograph COMPARISON: 08/02/2024 [...] 8.4 - 10.2 mg/dl [facility] Blood 09/09/2024 us Historical Provider LAB BLOOD ORDERABLES Edit ed [...] by: Gregg Johnson M.D. Susan Zhou MD IMG CT PROCEDURES Final Result * (ABNORMAL) Cytomegalovirus (CMV) DNA PCR, quantitative Blood (08/14/2024 7:10 AM CDT) Pathologist [facility] CMV DNA Detected( A) [facility] Comment: Interpretive Data: The quantifiable range of this assay is 34 IUnits/mL to 10,000,000 IUnits/mL (1.53 log IUnits/mL to 7.0 log IUnits/mL). Testing was performed by the NIA 6800 CMV Test ([employer] Testing performed at [facility]. Current interpretive data was last revised on 2021. CMV DNA IU/mL 171 IUnits/mL [facility] CMV DNA log IU/mL 2.23 log IUnits/mL [facility] Blood 08/14/2024 7:10 AM CDT 08/14/2024 8:49 AM CDT Lisandra Auguste NP LAB MICROBIOLOGY - GENERA L ORDERABLES Final Result [facility] [place] [address] [facility] * Glucose, random (Outreach) (08/14/2024 7:10 AM CDT) Pathologist [facility] Glucose 101 70 - 199 mg/dL Comment: [...] 7:10 AM CDT 08/14/2024 7:45 AM CDT us Lisandra Auguste FILLING LAYER UP LAB BLOOD ORDERABLES Chata venecia Result [facility] [place] [address] * eGFR (08/14/2024 7:10 AM CDT) eGFR >90 >=60 mL/min/1. [...] 08/14/2024 7:50 AM CDT us Lisandra Auguste NP LAB BLOOD ORDERABLES Chata l Result Performing Organization Address City/State/[facility] Phone Number [facility] [place] [address] * eGFR (08/14/2024 7:10 AM CDT) eGFR [...] BLOOD ORDERABLES Ed ited Result - Final [facility] [place] [address] * (ABNORMAL) Differential, auto (08/14/2024 7:10 AM CDT) Neutrophil abs 1.8 1.5 - 6.5 K/cumm Imm gran abs 0.0 0.0 - 0.1 K/cumm [facility] Lymphocyte abs 1.5 0.8 - 3.3 K/cumm [facility] Monocyte abs 1.9(H) 0.2 - 0.8 K/cumm [facility] Eosinophil abs 0.2 0.0 - 0.5 K/cumm [facility] Basophil abs 0.1 0.0 - 0.1 K/cumm [facility] Neutrophil pct 32.5 % [facility] Comment: Interpretive Data Percent cell count reference ranges are not reported, since discordance with absolute values may lead to misinterpretation of CBC data. Current Interpretive Data was last revised on 2018. Imm gran pct 0.5 % [facility] Comment: Interpretive Data Percent cell count reference ranges are not reported, since discordance with absolute values may lead to misinterpretation of CBC data. Current Interpretive Data was last revised on 2018. Lymphocyte pct 27.5 % [facility] Comment: Interpretive Data Percent cell count reference ranges are not reported, since discordance with absolute values may lead to misinterpretation of CBC data. Current Interpretive Data was last revised on 2018. Monocyte pct 34.2 % [facility] Comment: Interpretive Data Percent cell count reference ranges are not reported, since discordance with absolute values may lead to misinterpretation of CBC data. Current Interpretive Data was last revised on 2018. Eosinophil pct 3.8 % [facility] Comment: Interpretive Data Percent cell count reference ranges are not reported, since discordance with absolute values may lead to misinterpretation of CBC data. Current Interpretive Data was last revised on 2018. Basophil pct 1.5 % [facility] Comment: Interpretive Data Percent cell count reference ranges are not reported, since discordance with absolute values may lead to misinterpretation of CBC data. Current Interpretive Data was last revised on 2018. Blood 08/14/2024 7:10 AM CDT 08/14/2024 7:45 AM CDT Susan Zhou MD LAB BLOOD ORDERABLES Fi nal Result Performing Organization Address [facility] Co de Phone Number [facility] [place] [address] * Tacrolimus level trough (08/14/2024 7:10 AM CDT) Tacrolimus trough 3.9 ng/mL Comment: Interpretive Data Testing performed by liquid chromatography-tandem mass spectrometry. ??Therapeutic concentrations vary depending on type of transplanted organ and time elapsed since transplant. ??Typical trough concentrations range from 5-15 ng/mL. ??This test was developed and its performance characteristics determined by the Laboratory consistent with CLIA requirements. ??This test has not been cleared or approved by the [place] Food and Drug administration. ??Current interpretive data last reviewed 2020. Blood 08/14/2024 7:10 AM CDT 08/14/2024 7:45 AM CDT Susan Zhou MD LAB BLOOD ORDERABLES Fi nal Result Performing Organization Address [facility] Co de Phone Number [facility] [place] [address] * (ABNORMAL) Comprehensive metabolic panel, without glucose (Outreach) (08/14/2024 7:10 AM CDT) Sodium 141 135 - 145 mmol/L Potassium, pl 4.6 3.3 - 4.9 mmol/L [facility] Chloride 109 97 - 110 mmol/L [facility] CO2 23 22 - 32 mmol/L [facility] Anion gap 9 2 - 15 mmol/L [facility] BUN 16 6 - 25 mg/dL [facility] Creatinine 1.07 0.80 - 1.30 mg/dL [facility] Calcium 8.5 8.5 - 10.3 mg/dL [facility] Protein, pl 5.7(L) 6.5 - 8.5 g/dL [facility] Albumin 3.2(L) 3.5 - 5.0 g/dL [facility] Bilirubin, total 1.5(H) 0.1 - 1.2 mg/dL [facility] Alk phos 271(H) 40 - 130 Units/L [facility] AST 47 10 - 50 Units/L [facility] ALT 33 7 - 55 Units/L [facility] Blood 08/14/2024 7:10 AM CDT 08/14/2024 7:45 AM CDT us Lisandra Auguste NP LAB BLOOD ORDERABLES Chata cuadra Result [facility] [place] [address] * (ABNORMAL) CBC with auto differential (08/14/2024 7:10 AM CDT) WBC 5.5 3.8 - 9.9 K/cumm Hgb 12.4(L) 13.0 - 17.5 g/dL [facility] Hct 34.3(L) 38.9 - 50.3 % [facility] Plt 269 150 - 400 K/cumm [facility] MPV 10.4 9.1 - 12.[address] [facility] RBC 3.33(L) 4.30 - 5.80 M/cumm [facility] MCV 103.0(H) 81.3 - 96.[address] [facility] MCH 37.2(H) 27.1 - 33.[address] [facility] MCHC 36.2(H) 32.3 - 35.7 g/dL [facility] RDW CV 15.0(H) 11.1 - 14.9 % [facility] RDW SD 56.4(H) 35.7 - 48.[address] [facility] NRBC abs 0.00 0.00 - 0.01 K/cumm [facility] Blood 08/14/2024 7:10 AM CDT 08/14/2024 7:45 AM CDT Susan Zhou MD LAB BLOOD ORDERABLES Fi nal Result Performing Organization Address City/[facility] Co de Phone Number [facility] [place] [address] * (ABNORMAL) Gamma GT (08/14/2024 7:10 AM CDT) GGT 56(H) 10 - 50 Units/L Blood 08/14/2024 7:10 AM CDT 08/14/2024 7:45 AM CDT Susan Zhou MD LAB BLOOD ORDERABLES Fi nal Result Performing Organization Address [facility] de Phone Number [facility] [place] [address] * Comprehensive metabolic panel (08/14/2024 7:10 AM CDT) Pathologist [facility] Sodium See Comment 135 - 145 mmol/L Comment:Credited, duplicate test. Potassium, pl See Comment 3.3 - 4.9 mmol/L [facility] Comment:Credited, duplicate test. Chloride See Comment 97 - 110 mmol/L [facility] Comment:Credited, duplicate test. CO2 See Comment 22 - 32 mmol/L [facility] Comment:Credited, duplicate test. Anion gap See Comment 2 - 15 mmol/L [facility] Comment:Credited, duplicate test. BUN See Comment 6 - 25 mg/dL [facility] Comment:Credited, duplicate test. Creatinine See Comment 0.80 - 1.30 mg/dL [facility] Comment:Credited, duplicate test. Glucose See Comment 70 - 199 mg/dL [facility] Comment: Credited, duplicate test. Interpretive Data Fasting [...] Calcium See Comment 8.5 - 10.3 mg/dL [facility] Comment:Credited, duplicate test. Bilirubin, total See Comment 0.1 - 1.2 mg/dL [facility] Comment:Credited, duplicate test. Protein, pl See Comment 6.5 - 8.5 g/dL [facility] Comment:Credited, duplicate test. Albumin See Comment 3.5 - 5.0 g/dL [facility] Comment:Credited, duplicate test. Alk phos See Comment 40 - 130 Units/L [facility] Comment:Credited, duplicate test. ALT See Comment 7 - 55 Units/L [facility] Comment:Credited, duplicate test. AST See Comment 10 - 50 Units/L [facility] Comment:Credited, duplicate test. Blood 08/14/2024 7:10 AM CDT 08/14/2024 7:45 AM CDT Susan Zhou MD LAB BLOOD ORDERABLES Ed ited Result - Final [facility] [place] [address] * [employer] Results (08/02/2024 10:02 AM CDT) Provider Scanning AUDIOLOGY SERVICES ORDERABLES Final Result [...] - 9.9 K/cumm Comment:Testing performed by : [facility], [address] [place] [phone] Hgb 12.9(L) 13.0 - 17.5 g/dL [facility] Comment:Testing performed by : [facility], [address] [place] [phone] Hct 38.0(L) 38.9 - 50.3 % [facility] Comment:Testing performed by : [facility], [address] [place] [phone] Plt 263 150 - 400 K/cumm [facility] Comment:Testing performed by : [facility], [address] [place] [address] MPV 8.5 6.8 - 10.4 fL [facility] Comment:Testing performed by : [facility], [address] [place] [address] RBC 3.40(L) 4.30 - 5.80 M/cumm [facility] Comment:Testing performed by : [facility], [address] [place] [address] MCV 111.7(H) 81.3 - 96.4 fL [facility] Comment:Testing performed by : [facility], [address] [place] [address] MCH 38.0(H) 27.1 - 33.3 pg [facility] Comment:Testing performed by : [facility], [address] [place] [address] MCHC 34.0 32.3 - 35.7 g/dL [facility] Comment:Testing performed by : [facility], [address] [place] [address] RDW CV 13.5 11.1 - 14.9 % [facility] Comment:Testing performed by : [facility], [address] [place] [address] NRBC abs 0.00 0.00 - 0.01 K/cumm [facility] Comment:Testing performed by : [facility], [address] [place] [address] Blood 08/02/2024 7:16 AM CDT 08/02/2024 7:17 AM CDT us Anita Gillespie MD LAB BLOOD ORDERABLES Edite d Result - Final [facility] [place] [address] * (ABNORMAL) Manual Differential (08/02/2024 7:16 AM CDT) Cells Counted 184 Comment:Testing performed by : [facility], [address] [place] [phone] Neutrophil abs 1.0(L) 1.5 - 6.5 K/cumm [facility] Comment:Testing performed by : [facility], [address] [place], [place] [phone] Lymphocyte abs 1.7 0.8 - 3.3 K/cumm [facility] Comment:Testing performed by : [facility], [address] [place], [place] [phone] Monocyte abs 2.2(H) 0.2 - 0.8 K/cumm [facility] Comment:Testing performed by : [facility], [address] [place] [phone] Eosinophil abs 0.1 0.0 - 0.5 K/cumm [facility] Comment:Testing performed by : [facility], [address] [place], [place] [phone] Basophil abs 0.1 0.0 - 0.1 K/cumm [facility] Comment:Testing performed by : [facility], [address] [place] [phone] Neutrophil pct 18.0 % [facility] Comment: Interpretive Data Percent cell count reference ranges are not reported, since discordance with absolute values may lead to misinterpretation of CBC data. Current Interpretive Data was last revised on 2018. Testing performed by: [facility], [address] [place] [phone] Lymphocyte pct 32.0 % [facility] Comment: Interpretive Data Percent cell count reference ranges are not reported, since discordance with absolute values may lead to misinterpretation of CBC data. Current Interpretive Data was last revised on 2018. Testing performed by: [facility], [address] [place], [place] [phone] Monocyte pct 40.0 % [facility] Comment: Interpretive Data Percent cell count reference ranges are not reported, since discordance with absolute values may lead to misinterpretation of CBC data. Current Interpretive Data was last revised on 2018. Testing performed by: [facility], [address] [place] [phone] Eosinophil pct 2.0 % [facility] Comment: Interpretive Data Percent cell count reference ranges are not reported, since discordance with absolute values may lead to misinterpretation of CBC data. Current Interpretive Data was last revised on 2018. Testing performed by: [facility], [address] [place] [phone] Basophil pct 2.0 % [facility] Comment: Interpretive Data Percent cell count reference ranges are not reported, since discordance with absolute values may lead to misinterpretation of CBC data. Current Interpretive Data was last revised on 2018. Testing performed by: [facility], [address] [place] [phone] Metamyelocyte pct 3.0 % [facility] Comment:Testing performed by : [facility], [address] [place] [phone] Variant lymph pct 2.0 % [facility] Comment:Testing performed by : [facility], [address] [place] [phone] Other cell pct 1.0 % [facility] Comment:Testing performed by : [facility], [address] [place] [phone] Anisocytosis 1+(A) [facility] Comment:Testing performed by : [facility], [address] [place] [phone] Poikilocytosis 1+(A) [facility] Comment:Testing performed by : [facility], [address] [place] [phone] Microcytes 1+(A) [facility] Comment:Testing performed by : [facility], [address] [place] [phone] Macrocytes 1+(A) [facility] Comment:Testing performed by : [facility], [address] [place] [phone] Target cells 1+(A) [facility] Comment:Testing performed by : [facility], [address] [place] [phone] Platelet estimate Adequate [facility] Comment:Testing performed by : [facility], [address] [place] [phone] Blood 08/02/2024 7:16 AM CDT 08/02/2024 7:17 AM CDT Anita Gillespie MD LAB BLOOD ORDERABLES Final Result [facility] [place] [address] * eGFR (08/02/2024 7:10 AM CDT) eGFR [...] BLOOD ORDERABLES Final Result Performing Organization Address [facility] Co de Phone Number [facility] [place] [address] * (ABNORMAL) Lactate dehydrogenase (LD) (08/02/2024 7:10 AM CDT) [facility] Lactate dehydrogenase (LDH) 260(H) 100 - 250 Units/L Blood 08/02/2024 7:10 AM CDT 08/02/2024 7:27 AM CDT us Anita Gillespie MD LAB BLOOD ORDERABLES Final Result Performing Organization Address [facility] de Phone Number [facility] [place] [address] * (ABNORMAL) IgG (08/02/2024 7:10 AM CDT) [facility] Immunoglobulin G 673(L) 700 - 1,600 mg/dL Blood 08/02/2024 7:10 AM CDT 08/02/2024 7:56 AM CDT Anita Gillespie MD LAB BLOOD ORDERABLES Final Result Performing Organization Address [facility] de Phone Number [facility] [place] [address] * (ABNORMAL) Comprehensive metabolic panel (08/02/2024 7:10 AM CDT) [facility] Sodium 138 135 - 145 mmol/L Potassium, pl 4.7 3.3 - 4.9 mmol/L [facility] Chloride 108 97 - 110 mmol/L [facility] CO2 25 22 - 32 mmol/L [facility] Anion gap 5 2 - 15 mmol/L [facility] BUN 19 6 - 25 mg/dL [facility] Creatinine 1.07 0.80 - 1.30 mg/dL [facility] Glucose 115 70 - 199 mg/dL [facility] Comment: Interpretive Data Fasting glucose >/= 126 [...] 2022. Calcium 8.6 8.5 - 10.3 mg/dL [facility] Bilirubin, total 1.1 0.1 - 1.2 mg/dL [facility] Protein, pl 5.6(L) 6.5 - 8.5 g/dL [facility] Albumin 3.0(L) 3.5 - 5.0 g/dL [facility] Alk phos 261(H) 40 - 130 Units/L [facility] ALT 22 7 - 55 Units/L [facility] AST 32 10 - 50 Units/L [facility] Blood 08/02/2024 7:10 AM CDT 08/02/2024 7:27 AM CDT us Anita Gillespie MD LAB BLOOD ORDERABLES Final Result [facility] [place] [address] * Hepatitis panel, acute Blood (02/18/2024 4:15 PM CDT) Hep A IgM Nonreactive Nonreactive Hep B core IgM Nonreactive Nonreactive [facility] Hep C Ab Nonreactive Nonreactive [facility] Comment:Antibodies to HCV no t detected. Does NOT exclude the possibility of recent exposure to HCV. Current interpretive data was last revised on 22 HepBsAg Nonreactive Nonreactive [facility] Blood 02/18/2024 4:15 PM CDT 02/18/2024 4:28 PM CDT Jinny Salmon FILLING LAYER UP LAB MICROBIOLOGY - GENER AL ORDERABLES Final Result [facility] [place] [address] from Last 3 Months or Most Recently Relevant to Health Maintenance Insurance [facility] [employer] COVENTRY PPO Advance Directives For more information, please contact: [phone] * Full Code (Latest Code Status on [...] 12:20 PM 09/03/2023 7:51 AM Care Teams Stage Set Designer Relationship Specialty Start Date End Date Guero Colunga DO [address] [place] [address] PCP - General Internal Medicine 08/02/24 Amber Montesinos, RN [employer] [facility] 11/17/19 Jil Duncan MD Consulting Physician Infectious Diseases 01/10/20 Anita Gillespie MD Medical Oncologist/Concept Artist Medical Oncology 10/07/20 Tabitha Hurley MD [address] [place] [address] Consulting Physician Rheumatology 10/22/21 Massiel Gastelum MD [address] [place] [address] Consulting Physician Otolaryngology 08/27/22
--- OUTSIDE RECORDS SUMMARY | 2024-10-28 06:02 | XMS_ITS | Encounter Summary ---
Author Organization [facility] Healthcare Address [address] [place] [address] Care Team Providers Care Nuclear Technologist Name Role Phone Amber Montesinos RN Unavailable [phone] Jil Duncan MD Unavailable [phone] Anita Gillespie MD Unavailable [phone] Tabitha Hurley MD Unavailable [phone] Massiel Gastelum MD Unavailable [phone] Guero Colunga DO Primary Care Provider [phone] Encounter Details Date Type Department Care Team (Late st Contact Info) Description 08/14/2024 7:20 AM CDT Lab [facility] ([facility]) [address] [place] [id number] Social History Tobacco Use Types Packs/Day Years Used Date Smoking Tobacco: Never Smokeless Tobacco: Current Chew Comments:Chews tobacco on o ccasion Alcohol Use Standard Drinks/Week Comments Yes 0 (1 standard drink = 0.6 oz pur e alcohol) occassional OASIS D0700: Social Isolation Answer Da te Recorded Frequency of experiencing loneliness or isolatio n Never 02/29/2024 [facility] Utilities Answer Date Recorded In the past 12 months has [employer] e electric, gas, oil, or water company [...] often do you attend chur ch or alevism services? 1 to 4 times per year [...] place to sleep or slept in a jail (including now)? No 02/23/2024 Personal Safety Answer Date Recorded Have you ever been in or are you currently in a harmful physical or emotional relationship or is someone making you feel afraid or unsafe? 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 Gender Identity Not on file Sexual Orientation Straight 08/22/2021 9: 23 AM CDT documented as of this encounter Plan of Treatment Scheduled Procedures Name Priority Associated Diagnoses Date/Ti me COLONOSCOPY Encounter for screening for colorectal cancer in high risk patient Family history of rectal cancer documented as of this encounter Visit Diagnoses Not on filedocumented in this encounter Care Teams Nuclear Technologist Relationship Specialty Start Date End Date Guero Colunga DO [address] [place] [address] PCP - General Internal Medicine 08/02/24 Amber Montesinos, SHAILESH Lock Maintenance Supervisor Transplant 11/17/19 Jil Duncan MD Consulting Physician Infectious Diseases 01/10/20 Anita Gillespie MD Medical Oncologist/Vision Teacher Medical Oncology 10/07/20 Tabitha Hurley MD [address] [facility] [address] [place] [address] Consulting Physician Rheumatology 10/22/21 Massiel Gastelum MD [address] [place] [address] Consulting Physician Otolaryngology 08/27/22 documented as of this encounter
--- OUTSIDE RECORDS SUMMARY | 2024-10-28 06:02 | XMS_ITS | Encounter Summary ---
Author Organization [facility] Healthcare Address [address] [place] [address] Care Team Providers Care Grinder Name Role Phone Amber Montesinos RN Unavailable [phone] Jil Duncan MD Unavailable [phone] Anita Gillespie MD Unavailable [phone] Tabitha Hurley MD Unavailable [phone] Massiel Gastelum MD Unavailable Guero Colunga DO Primary Care Provider Encounter Details Date Type Department Care Team (Late st Contact Info) Description 09/15/2024 Documentation [facility] Transplant Liver [address] [facility] [address] [phone] [place] [address] Amber Montesinos, RN Social History Tobacco Use Types Packs/Day Years Used Date Smoking Tobacco: Never Smokeless Tobacco: Current Chew Comments:Chews tobacco on o ccasion Alcohol Use Standard Drinks/Week Comments Yes 0 (1 standard drink = 0.6 oz pur e alcohol) occassional OASIS D0700: Social Isolation Answer Da te Recorded Frequency of experiencing loneliness or isolatio n Never 02/29/2024 [facility] Utilities Answer Date Recorded In the past 12 months has [employer], gas, oil, or water company threatened to [...] often do you attend chur ch or moravian services? 1 to 4 times per year 02/23/2024 Do you belong to any clubs o r organizations such as bahai groups, unions, fraternal or athletic groups, or [...] place to sleep or slept in a residential (including now)? No 02/23/2024 Personal Safety Answer Date Recorded Have you ever been in or are you currently in a harmful physical or emotional relationship or is someone making you feel afraid or unsafe? 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 Mom discussed with pt who reports that swelling has improved some. He still has swelling in his upper thighs and ankles. Not taking daily weights. Inquired about abdominal distention. Reviewed BMP with Madelaine Martínez NP with transplant hepatology. Will have patient monitor daily weights and follow salt restricted diet (2grams) to see if this helps. If abdominal distention gets worse, can get US RUQ to check for ascites. Sent update via [employer]. UCTION RECOVERY OPERATOR documented in this encounter Plan of Treatment Scheduled Procedures Name Priority Associated Diagnoses Date/Ti me COLONOSCOPY Encounter for screening for colorectal cancer in high risk patient Family history of rectal cancer documented as of this encounter Visit Diagnoses Not on filedocumented in this encounter Care Teams Grinder Relationship Specialty Start Date End Date Guero Colunga DO [address] [facility] [address] [place], [place] [id number] PCP - General Internal Medicine 08/02/24 Amber Montesinos, SHAILESH Auctioneer Tobacco Transplant 11/17/19 Jil Duncan MD Consulting Physician Infectious Diseases 01/10/20 Anita Gillespie MD Medical Oncologist/Sql Server Dba Developer Medical Oncology 10/07/20 Tabitha Hurley MD [address] [place] [address] Consulting Physician Rheumatology 10/22/21 Massiel Gastelum MD [address] [place] [address] Consulting Physician Otolaryngology 08/27/22 documented as of this encounter
--- OUTSIDE RECORDS SUMMARY | 2024-10-28 06:02 | XMS_ITS | Encounter Summary ---
Author Organization [facility] Healthcare Address [address] [place] [address] Care Team Providers Care Grip Boss Name Role Phone Amber Montesinos RN Unavailable [phone] Jil Duncan MD Unavailable [phone] Anita Gillespie MD Unavailable [phone] Tabitha Hurley MD Unavailable [phone] Massiel Gastelum MD Unavailable Guero Colunga DO Primary Care Provider [phone] Encounter Details Date Type Department Care Team (Late st Contact Info) Description 08/22/2024 Telephone [facility] Transplant Liver [address] [facility] [address] Mail[address] [phone] [place], [place] [id number] Amber Montesinos, RN Social History Tobacco Use Types Packs/Day Years Used Date Smoking Tobacco: Never Smokeless Tobacco: Current Chew Comments:Chews tobacco on o ccasion Alcohol Use Standard Drinks/Week Comments Yes 0 (1 standard drink = 0.6 oz pur e alcohol) occassional OASIS D0700: Social Isolation Answer Da te Recorded Frequency of experiencing loneliness or isolatio n Never 02/29/2024 [facility] Utilities Answer Date Recorded In the past 12 months has [employer], gas, oil, or water company threatened to [...] often do you attend chur ch or catholic services? 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 Patient stating that he noticed last Wed/ that his legs/feet were getting more swollen. He also felt like his abdomen was more distended. He has not been taking his weight daily. He said his stomach feels more puffy and itis harder to bend over. His clothes still fit appropriately. He has been compliant with both of hisdiuretics at home. No other recent medication changes. His diet and activity level have not changed. He has been wearing his compression stockings. He is still voiding appropriately. He would like toknow if we are able to increase his diuretics to help with this. Let him know I would review with so meone and get back with them. documented in this encounter Plan of Treatment Scheduled Procedures Name Priority Associated Diagnoses Date/Ti me COLONOSCOPY Encounter for screening for colorectal cancer in high risk patient Family history of rectal cancer documented as of this encounter Visit Diagnoses Not on filedocumented in this encounter Care Teams Grip Boss Relationship Specialty Start Date End Date Guero Colunga DO [address] [place], [place] [id number] PCP - General Internal Medicine 08/02/24 Amber Montesinos, SHAILESH Distance Education Faculty Liaison Transplant 11/17/19 Jil Duncan MD Consulting Physician Infectious Diseases 01/10/20 Anita Gillespie MD Medical Oncologist/Burr Filer Medical Oncology 10/07/20 Tabitha Hurley MD [address] [facility] [address] [place] [address] Consulting Physician Rheumatology 10/22/21 Massiel Gastelum MD [address] [place] [address] Consulting Physician Otolaryngology 08/27/22 documented as of this encounter
--- OUTSIDE RECORDS SUMMARY | 2024-10-28 06:02 | XMS_ITS | Encounter Summary ---
Author Organization [facility] Healthcare Address [address] [place] [address] Care Team Providers Care Professional Wrestler Name Role Phone Amber Montesinos RN Unavailable [phone] Jil Duncan MD Unavailable [phone] Anita Gillespie MD Unavailable [phone] Tabitha Hurley MD Unavailable [phone] Massiel Gastelum MD Unavailable [phone] Guero Colunga DO Primary Care Provider [phone] Encounter Details Date Type Department Care Team (Late st Contact Info) Description 08/14/2024 7:05 AM CDT Lab [facility]) [address] [place] [id number] 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HCC); History of liver transplant (CMS/HCC) (HCC) Social History Tobacco Use Types Packs/Day Years Used Date Smoking Tobacco: Never Smokeless Tobacco: Current Chew Comments:Chews tobacco on o ccasion Alcohol Use Standard Drinks/Week Comments Yes 0 (1 standard drink = 0.6 oz pur e alcohol) occassional OASIS D0700: Social Isolation Answer Da te Recorded Frequency of experiencing loneliness or isolatio n Never 02/29/2024 [facility] Utilities Answer Date Recorded In the [...] often do you attend chur ch or mandaen services? 1 to 4 times per year 02/23/2024 Do you belong to any clubs o r organizations such as pentecostal groups, unions, fraternal or athletic groups, or [...] place to sleep or slept in a [place] facility (including now)? No 02/23/2024 Personal Safety Answer Date Recorded Have you ever been in or are you currently in a harmful physical or emotional relationship or is someone making you feel afraid or unsafe? 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 [employer] Gender Identity Not on file Sexual Orientation Straight 08/22/2021 9: 23 AM CDT documented as of this encounter Plan of Treatment Scheduled Procedures Name Priority Associated Diagnoses Date/Ti me COLONOSCOPY Encounter for screening for colorectal cancer in high risk patient Family history of rectal cancer documented as of this encounter Procedures Procedure Name Priority Date/Time Associated Diagnosis Comments CYTOMEGALOVIRUS (CMV) DNA, QUANT GEN LAB Routine 08/14/2024 7:10 AM CDT 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HCC) GLUCOSE, RANDOM (OUTREACH) Routine 08/14/2024 7:10 AM CDT 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HCC) EGFR Routine 08/14/2024 7:10 AM CDT 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HCC) EGFR Routine 08/14/2024 7:10 AM CDT History of liver transplant (CMS/HCC) (HCC) DIFFERENTIAL AUTO Routine 08/14/2024 7:1 0 AM CDT History of liver transplant (CMS/HCC) (HCC) TACROLIMUS LEVEL, TROUGH Routine 08/14/2024 7:10 AM CDT History of liver transplant (CMS/HCC) (HCC) COMPREHENSIVE METABOLIC PANEL WITHOUT GLUCOSE (OUTREACH) Routine 08/14/2024 7:10 AM CDT 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HCC) COMPREHENSIVE METABOLIC PANEL (OUTREACH) Routine 08/14/2024 7:10 AM CDT 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HCC) CBC WITH AUTO DIFFERENTIAL Routine 08/14/2024 7:10 AM CDT History of liver transplant (CMS/HCC) (HCC) GAMMA GT Routine 08/14/2024 7:10 AM CDT History of liver transplant (CMS/HCC) (HCC) COMPREHENSIVE METABOLIC PANEL Routine 08/14/2024 7:10 AM CDT History of liver transplant (CMS/HCC) (HCC) documented in this encounter Results * eGFR (08/14/2024 7:10 AM CDT) eGFR [...] Lisandra Auguste NP LAB BLOOD ORDERABLES Chata venecia Result [facility] Department [place] [address] * eGFR (08/14/2024 7:10 AM CDT) eGFR [...] of Race in Diagnosing Kidney Disease, JASN 202). The CKD-EPI equation should not be used for patients with unstable renal function and has not been validated in children and those over 70. Current interpretive data was last reviewed 2021. Blood 08/14/2024 7:10 AM CDT 08/14/2024 7:50 AM CDT us Susan Zhou MD LAB BLOOD ORDERABLES Ed ited Result - Final [facility] [place] [address] * (ABNORMAL) Differential, auto (08/14/2024 7:10 AM CDT) Neutrophil abs 1.8 1.5 - 6.5 K/cumm Imm gran abs 0.0 0.0 - 0.1 K/cumm [facility] Lymphocyte abs 1.5 0.8 - 3.3 K/cumm [facility] Monocyte abs 1.9(H) 0.2 - 0.8 K/cumm [facility] Eosinophil abs 0.2 0.0 - 0.5 K/cumm [facility] Basophil abs 0.1 0.0 - 0.1 K/cumm [facility] Neutrophil pct 32.5 % [facility] Comment: Interpretive Data Percent cell count reference ranges are not reported, since discordance with absolute values may lead to misinterpretation of CBC data. Current Interpretive Data was last revised on 2018. Imm gran pct 0.5 % [facility] Comment: Interpretive Data Percent cell count reference ranges are not reported, since discordance with absolute values may lead to misinterpretation of CBC data. Current Interpretive Data was last revised on 2018. Lymphocyte pct 27.5 % [facility] Comment: Interpretive Data Percent cell count reference ranges are not reported, since discordance with absolute values may lead to misinterpretation of CBC data. Current Interpretive Data was last revised on 2018. Monocyte pct 34.2 % [facility] Comment: Interpretive Data Percent cell count reference ranges are not reported, since discordance with absolute values may lead to misinterpretation of CBC data. Current Interpretive Data was last revised on 2018. Eosinophil pct 3.8 % [facility] Comment: Interpretive Data Percent cell count reference ranges are not reported, since discordance with absolute values may lead to misinterpretation of CBC data. Current Interpretive Data was last revised on 2018. Basophil pct 1.5 % [facility] Comment: Interpretive Data Percent cell count reference ranges are not reported, since discordance with absolute values may lead to misinterpretation of CBC data. Current Interpretive Data was last revised on 2018. Blood 08/14/2024 7:10 AM CDT 08/14/2024 7:45 AM CDT Susan Zhou MD LAB BLOOD ORDERABLES Fi nal Result Performing Organization Address City/[facility]/ZIP Co de Phone Number [facility] [place] [address] * Glucose, random (Outreach) (08/14/2024 7:10 AM CDT) Glucose 101 70 - 199 mg/dL Comment: [...] ORDERABLES Chata l Result Performing Organization Address City/[facility]/ZIP Co de Phone Number [facility] [place] [address] * (ABNORMAL) Comprehensive metabolic panel, without glucose (Outreach) (08/14/2024 7:10 AM CDT) Sodium 141 135 - 145 mmol/L Potassium, pl 4.6 3.3 - 4.9 mmol/L [facility] Chloride 109 97 - 110 mmol/L [facility] CO2 23 22 - 32 mmol/L [facility] Anion gap 9 2 - 15 mmol/L [facility] BUN 16 6 - 25 mg/dL [facility] Creatinine 1.07 0.80 - 1.30 mg/dL [facility] Calcium 8.5 8.5 - 10.3 mg/dL [facility] Protein, pl 5.7(L) 6.5 - 8.5 g/dL [facility] Albumin 3.2(L) 3.5 - 5.0 g/dL [facility] Bilirubin, total 1.5(H) 0.1 - 1.2 mg/dL [facility] Alk phos 271(H) 40 - 130 Units/L [facility] AST 47 10 - 50 Units/L [facility] ALT 33 7 - 55 Units/L [facility] Blood 08/14/2024 7:10 AM CDT 08/14/2024 7:45 AM CDT Lisandra Auguste MEDIA JOB TITLES LAB BLOOD ORDERABLES Chata l Result [facility] [place] [address] * Tacrolimus level trough (08/14/2024 7:10 AM CDT) [facility] Tacrolimus trough 3.9 ng/mL Comment: Interpretive Data Testing performed by liquid chromatography-tandem mass spectrometry. ??Therapeutic concentrations vary depending on type of transplanted organ and time elapsed since transplant. ??Typical trough concentrations range from 5-15 ng/mL. ??This test was developed and its performance characteristics determined by the [facility] consistent with CLIA requirements. ??This test has not been cleared or approved by the [place] Food and Drug administration. ??Current interpretive data last reviewed 2020. Blood 08/14/2024 7:10 AM CDT 08/14/2024 7:45 AM CDT Susan Zhou MD LAB BLOOD ORDERABLES Fi nal Result Performing Organization Address City/[facility] Co de Phone Number [facility] [place] [address] * (ABNORMAL) Gamma GT (08/14/2024 7:10 AM CDT) Pathologist [facility] GGT 56(H) 10 - 50 Units/L Blood 08/14/2024 7:10 AM CDT 08/14/2024 7:45 AM CDT Susan Zhou MD LAB BLOOD ORDERABLES Fi nal Result Performing Organization Address [facility] de Phone Number [facility] [place] [address] * Comprehensive metabolic panel (08/14/2024 7:10 AM CDT) [facility] Sodium See Comment 135 - 145 mmol/L Comment:Credited, duplicate test. Potassium, pl See Comment 3.3 - 4.9 mmol/L [facility] Comment:Credited, duplicate test. Chloride See Comment 97 - 110 mmol/L [facility] Comment:Credited, duplicate test. CO2 See Comment 22 - 32 mmol/L [facility] Comment:Credited, duplicate test. Anion gap See Comment 2 - 15 mmol/L [facility] Comment:Credited, duplicate test. BUN See Comment 6 - 25 mg/dL [facility] Comment:Credited, duplicate test. Creatinine See Comment 0.80 - 1.30 mg/dL [facility] Comment:Credited, duplicate test. Glucose See Comment 70 - 199 mg/dL [facility] Comment: Credited, duplicate test. Interpretive Data Fasting [...] Calcium See Comment 8.5 - 10.3 mg/dL [facility] Comment:Credited, duplicate test. Bilirubin, total See Comment 0.1 - 1.2 mg/dL [facility] Comment:Credited, duplicate test. Protein, pl See Comment 6.5 - 8.5 g/dL [facility] Comment:Credited, duplicate test. Albumin See Comment 3.5 - 5.0 g/dL [facility] Comment:Credited, duplicate test. Alk phos See Comment 40 - 130 Units/L [facility] Comment:Credited, duplicate test. ALT See Comment 7 - 55 Units/L [facility] Comment:Credited, duplicate test. AST See Comment 10 - 50 Units/L [facility] Comment:Credited, duplicate test. Blood 08/14/2024 7:10 AM CDT 08/14/2024 7:45 AM CDT us Susan Zhou MD LAB BLOOD ORDERABLES Ed ited Result - Final [facility] [place] [address] * (ABNORMAL) CBC with auto differential (08/14/2024 7:10 AM CDT) WBC 5.5 3.8 - 9.9 K/cumm Hgb 12.4(L) 13.0 - 17.5 g/dL [facility] Hct 34.3(L) 38.9 - 50.3 % [facility] Plt 269 150 - 400 K/cumm [facility] MPV 10.4 9.1 - 12.3 fL [facility] RBC 3.33(L) 4.30 - 5.80 M/cumm [facility] MCV 103.0(H) 81.3 - 96.4 fL [facility] MCH 37.2(H) 27.1 - 33.3 pg [facility] MCHC 36.2(H) 32.3 - 35.7 g/dL [facility] RDW CV 15.0(H) 11.1 - 14.9 % [facility] RDW SD 56.4(H) 35.7 - 48.1 fL [facility] NRBC abs 0.00 0.00 - 0.01 K/cumm [facility] Blood 08/14/2024 7:10 AM CDT 08/14/2024 7:45 AM CDT us Susan Zhou MD LAB BLOOD ORDERABLES Fi nal Result Performing Organization Address City/[facility]/ZIP Co de Phone Number [facility] [place] [address] * (ABNORMAL) Cytomegalovirus (CMV) DNA PCR, quantitative Blood (08/14/2024 7:10 AM CDT) [facility] Signature CMV DNA Detected( A) [facility] Comment: Interpretive Data: The quantifiable range of this assay is 34 IUnits/mL to 10,000,000 IUnits/mL (1.53 log IUnits/mL to 7.0 log IUnits/mL). Testing was performed by the NIA 6800 CMV Test ([employer] Testing performed at [facility]. Current interpretive data was last revised on 2021. 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 History of liver transplant (CMS/HCC) (HCC) Liver replaced by transplant documented in this encounter Care Teams Professional Wrestler Relationship Specialty Start Date End Date Guero Colunga DO [address] [place], [place] [phone] PCP - General Internal Medicine 08/02/24 Amber Montesinos, SHAILESH Claim Service Representative Transplant 11/17/19 Jil Duncan MD Consulting Physician Infectious Diseases 01/10/20 Anita Gillespie MD Medical Oncologist/Manager Actuarial Medical Oncology 10/07/20 Tabitha Hurley MD [address] [facility] 14 [place] [address] Consulting Physician Rheumatology 10/22/21 Massiel Gastelum MD [address] [place] [address] Consulting Physician Otolaryngology 08/27/22 documented as of this encounter
--- OUTSIDE RECORDS SUMMARY | 2024-10-28 06:02 | XMS_ITS | Encounter Summary ---
Author Organization [facility] Healthcare Address [address] [place] [address] Care Team Providers Care Pit Shovel Operator Name Role Phone Amber Montesinos RN Unavailable [phone] Jil Duncan MD Unavailable [phone] Anita Gillespie MD Unavailable [phone] Tabitha Hurley MD Unavailable [phone] Massiel Gastelum MD Unavailable [phone] Guero Colunga DO Primary Care Provider [phone] Encounter Details Date Type Department Care Team (Latest Contact Info) Description 09/15/2024 11:19 AM PLATE COLORER - 09/15/2024 11:59 PM PLATE COLORER Hospital Encounter [facility] [address] [place] [id number] Chronic cough Discharge Disposition: Discharge to home [...] experiencing loneliness or isolatio n Never 02/29/2024 [facility] Utilities Answer Date Recorded In the past 12 months has [employer], gas, oil, or water company threatened to [...] often do you attend chur ch or anabaptist services? 1 to 4 times per year 02/23/2024 Do you belong to any clubs o r organizations such as jew groups, unions, fraternal or athletic groups, or [...] place to sleep or slept in a fdc (including now)? No 02/23/2024 Personal Safety Answer Date Recorded Have you ever been in or are you currently in a harmful physical or emotional relationship or is someone making you feel afraid or unsafe? Denies 04/28/2024 Sex and Gender Information Value Date Recorded Sex Assigned at Not on file Legal Sex Male 6:28 AM PLATE COLORER Gender Identity Not on file Sexual Orientation [...] times a day 60 tablet 11 02/26/2024 sodium chloride 0.9% injectionIndicat ions:Flushing Infuse 10 [...] every other day 45 capsule 3 01/03/2024 traZODone (DESYREL) 50 mg tablet TAKE 1 [...] Scheduled Procedures Name Priority Associated Diagnoses Date/Ti nh COLONOSCOPY Encounter for screening for colorectal cancer in high risk patient Family history of rectal cancer documented as of this encounter Procedures Procedure Name Priority Date/Time Associated Diagnosis Comments XR CHEST PA LATERAL 2 VIEWS Schedule Routine, Read Routine (OP Routine) 09/15/2024 11:23 AM PLATE COLORER Chronic cough documented in this encounter Results * XR Chest Pa Lateral 2 Views (09/15/2024 11:23 AM PLATE COLORER) Anatomical Region Laterality Modality Body, Chest N/A Computed Radiogr aphy 09/15/2024 11:4 5 AM PLATE COLORER Impressions 09/15/2024 11:45 AM PLATE COLORER Normal heart size and mediastinal contours. ??Unchanged [...] Jez Elizondo M.D. Narrative 09/15/2024 11:45 AM PLATE COLORER EXAMINATION: 2 view chest radiograph COMPARISON: 08/02/2024 [...] Cough documented in this encounter Care Teams Pit Shovel Operator Relationship Specialty Start Date End Date Guero Colunga DO [address] [address] PCP - General Internal Medicine 08/02/24 Amber Montesinos, SHAILESH Alteration Inspector Transplant 11/17/19 Jil Duncan MD Consulting Physician Infectious Diseases 01/10/20 Anita Gillespie MD Medical Oncologist/Director Acute Medical Oncology 10/07/20 Tabitha Hurley MD [address] [facility] 14 [place], [place] [id number] Consulting Physician Rheumatology 10/22/21 Massiel Gastelum MD [address] [place], [place] [id number] Consulting Physician Otolaryngology 08/27/22 documented as of this encounter
--- OUTSIDE RECORDS SUMMARY | 2024-10-28 06:02 | XMS_ITS | Encounter Summary ---
Author Organization [facility] Healthcare Address [address] [place] [address] Care Team Providers Care Second Butler Name Role Phone Amber Montesinos RN Unavailable [phone] Jil Duncan MD Unavailable [phone] Anita Gillespie MD Unavailable [phone] Tabitha Hurley MD Unavailable [phone] Massiel Gastelum MD Unavailable Guero Colunga DO Primary Care Provider [phone] Encounter Details Date Type Department Care Team (Late st Contact Info) Description 08/24/2024 Documentation [facility] Transplant Liver [address] [facility] [id number] [place] [address] Amber Montesinos, RN Social History Tobacco Use Types Packs/Day Years Used Date Smoking Tobacco: Never Smokeless Tobacco: Current Chew Comments:Chews tobacco on o ccasion Alcohol Use Standard Drinks/Week Comments Yes 0 (1 standard drink = 0.6 oz pur e alcohol) occassional OASIS D0700: Social Isolation Answer Da te Recorded Frequency of experiencing loneliness or isolatio n Never 02/29/2024 [facility] Utilities Answer Date Recorded In the past 12 months has [employer], gas, oil, or water company threatened to [...] often do you attend chur ch or islam services? 1 to 4 times per year 02/23/2024 Do you belong to any clubs o r organizations such as amish groups, unions, fraternal or athletic groups, or [...] place to sleep or slept in a half-way (including now)? No 02/23/2024 Personal Safety Answer Date Recorded Have you ever been in or are you currently in a harmful physical or emotional relationship or is someone making you feel afraid or unsafe? 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 Lemus. Ok to trial increasing furosemide to 40mg BID. Patient should repeat BMP 7-10 days after increase. Sent update to pt via Xyo. Copy of BMP order emailed to them per their request. CT Chest reviewed with Madelaine Martínez NP with transplant hepatology and /AIDEN Fry with ID. No further workup needed currently since improving. Pt scheduled to see pulmonology next month. documented in this encounter Plan of Treatment Scheduled Orders Name Type Priority Associated Diagnoses Orde r Schedule Basic metabolic panel Lab Routine History of liver transplant (CMS/HCC) (HCC) Expected: 08/31/2024 (Approximate), Expires: 08/24/2025 Scheduled Procedures Name Priority Associated Diagnoses Date/Ti me COLONOSCOPY Encounter for screening for colorectal cancer in high risk patient Family history of rectal cancer documented as of this encounter Visit Diagnoses Diagnosis History of liver transplant (CMS/HCC) (HCC)- Primary Liver replaced by transplant documented in this encounter Discontinued Medications Medication Sig Discontinue Reason Start Date End Da te furosemide (LASIX) 20 mg tablet TAKE 2 TABLETS BY MOUTH EVERY MORNING Reorder 08/21/2024 08/24/2024 documented as of this encounter Care Teams Second Butler Relationship Specialty Start Date End Date Guero Colunga DO [address] [place] [address] PCP - General Internal Medicine 08/02/24 Amber Montesinos RN Bearing Ring Assembler Transplant 11/17/19 Jil Duncan MD Consulting Physician Infectious Diseases 01/10/20 Anita Gillespie MD Medical Oncologist/Chemical Dependency Counselor Medical Oncology 10/07/20 Tabitha Hurley MD [address] [facility] 14 [place] [address] Consulting Physician Rheumatology 10/22/21 Massiel Gastelum MD [address] [place] [address] Consulting Physician Otolaryngology 08/27/22 documented as of this encounter
--- OUTSIDE RECORDS SUMMARY | 2024-10-28 06:02 | XMS_ITS | Encounter Summary ---
Author Organization [facility] Address [address] [place] [address] Phone Care Team Providers Care Wine Pasteurizer Name Role Phone Amber Montesinos RN Unavailable [phone] Jil Duncan MD Unavailable [phone] Anita Gillespie MD Unavailable [phone] Tabitha Hurley MD Unavailable [phone] Massiel Gastelum MD Unavailable Guero Colunga DO Primary Care Provider [phone] Encounter Details Date Type Department Care Team (Late st Contact Info) Description 10/20/2024 Orders Only [facility] Oncology [address] [facility] Floor [address] [place] [address] Emili Jones, AIDEN [address] [place] [address] Social History Tobacco Use Types Packs/Day Years Used Date Smoking Tobacco: Never Smokeless Tobacco: Current Chew Comments:Chews tobacco on o ccasion Alcohol Use Standard Drinks/Week Comments Yes 0 (1 standard drink = 0.6 oz pur e alcohol) occassional OASIS D0700: Social Isolation Answer Da te Recorded Frequency of experiencing loneliness or isolatio n Never 02/29/2024 [facility] Utilities Answer Date Recorded In [...] often do you attend chur ch or denominational services? 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 Gender Identity Not on file Sexual Orientation Straight 08/22/2021 9: 23 AM CDT documented as of this encounter Plan of Treatment Scheduled Procedures Name Priority Associated Diagnoses Date/Ti me COLONOSCOPY Encounter for screening for colorectal cancer in high risk patient Family history of rectal cancer documented as of this encounter Visit Diagnoses Not on filedocumented in this encounter Care Teams Wine Pasteurizer Relationship Specialty Start Date End Date Guero Colunga DO [address] [facility] [address] [address] PCP - General Internal Medicine 08/02/24 Amber Montesinos RN Occupational Psychologist Transplant 11/17/19 Jil Duncan MD Consulting Physician Infectious Diseases 01/10/20 Anita Gillespie MD Medical Oncologist/Rn Transfer Medical Oncology 10/07/20 Tabitha Hurley MD [address] [place] [address] Consulting Physician Rheumatology 10/22/21 Massiel Gastelum MD [address] [place] [address] Consulting Physician Otolaryngology 08/27/22 documented as of this encounter
--- OUTSIDE RECORDS SUMMARY | 2024-10-28 06:02 | XMS_ITS | Encounter Summary ---
Author Organization [facility] Address [address] [place] [address] Phone Care Team Providers Care Stacker Operator Name Role Phone Amber Montesinos RN Unavailable [phone] Jil Duncan MD Unavailable [phone] Anita Gillespie MD Unavailable [phone] Tabitha Hurley MD Unavailable [phone] Massiel Gastelum MD Unavailable [phone] Guero Colunga DO Primary Care Provider [phone] Encounter Details Date Type Department Care Team (Latest Contact Info) Description 10/02/2024 8:20 AM PILE DRIVER ENGINEER Telemedicine [facility] Infectious Diseases [address] [place] [address] [address] [place] [address] Yajaira Eaton, AIDEN [address] [place] [address] Cytomegalovirus infection, unspecified cytomegaloviral infection type (HCC) (Primary Dx) Social History Tobacco Use Types Packs/Day Years Used Date Smoking Tobacco: Never Smokeless Tobacco: Current Chew Comments:Chews tobacco on o ccasion Alcohol Use Standard Drinks/Week Comments Yes 0 (1 standard drink = 0.6 oz pur e alcohol) occassional OASIS D0700: Social Isolation Answer Da te Recorded Frequency of experiencing loneliness or isolatio n Never 02/29/[address] [facility] Utilities Answer Date Recorded In [...] often do you attend chur ch or temple services? 1 to 4 times per year 02/23/2024 Do you belong to any clubs o r organizations such as worship groups, unions, fraternal or athletic groups, or [...] on file Legal Sex Male 6:28 AM PILE DRIVER ENGINEER Gender Identity Not on file Sexual Orientation Straight 08/22/2021 9: 23 AM CDT documented as of this encounter Ordered Prescriptions Prescription Sig Dispense Quantity Refills Last Filled Start Date End Date valGANciclovir (VALCYTE) 450 mg tablet Take 1 tablet (450 mg total) by mouth 2 (two) times a day 60 tablet 11 10/02/2024 10/02/2025 documented in this encounter Progress Notes * Yajaira Eaton, AIDEN - 10/02/2024 8:20 AM CST Infectious Diseases Return Visit Patient Name: Beka Nichols [facility] INFECTIOUS DISEASES [address] [place] [id number] Subjective Chief complaint of CMV, recent MSSA bacteremia and pneumonia HPI: Beka Nichols is a 29 y.o. 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 Per notes he is not thought to have tissue invasive disease. Dose of valgancyclovir increase to 900 mg PO BID 11/13/19 and despite dose increase he continued to have increasing CMV viremia. During admission 01/2020 he was started on IV ganciclovir and received ~7 weeks of IV ganciclovir with continued low level viremia during treatment. IV ganciclovir stopped 04/05/20. ID requested multiple times for resistance testing to be sent but this was unable to be donedue to low viral load. He started on IgG treatments 11/2020 and it was decided to restart on PO valganciclovir early 12/2020 (delay in starting treatment due to difficulty obtaining medication). Valganciclovir discontinued 03/11/21 due to undetectable CMV levels. He then has some low level viremia inte rmittently with CMV viral load of 14 on 02/05/21 and undetectable levels on 03/08/21. On 10/01/21 [place] [address]. He was also noted to have lymphadenopathy and left axillary lymph node biopsy was obtained on 10/07/21. CMV resistance testing also drawn on 10/07/21. ID recommended restarting Valganciclovir 900 mg PO BID along with letermovir 480 mg PO daily. He was unable to receive letermovir due to insurance issues but stated on valganciclovir on 10/08/21. CMV PCR remained elevated despite high dose valganciclovir and he was started on IV ganciclovir 12/20/21. Letermovir later added and both letermovir and IV ganciclovir were discontinued 02/10/22.His CMV viral load never became undetectable but given low level of viremia and absence of symptomsit was decided to discontinue antiviral therapy. He continued to have low level viremia but CMV viral load increased significantly to 10k late 01/2022. It was decided to start him on maribavir which started on 03/16/22. CMV viremia improved but he continued to have low level viremia. He then started to have increased CMV levels starting 06/20/22. He was admitted to [facility] 07/09-07/12/22 due to persistent CMV viremia while on marabovir along with 2 week history of cough, fevers, chills, fatigue/malaise. RVP positive for rhinovirus and adenovirus. CMV resistance testing obtained which showed resistance to maribavir. This was discontinued on 07/16/23and he was restarted on Valcyte 900 mg PO BID. CMV levels at OSH on 11/14/22 were [address]. Reached out to patient and it seemed he had been off Valcyte. Restarted therapy that day. He continued to have CMV viremia and on 04/28/23 his valganciclovir was discontinued when resitance testing showed CMV mutation indicating resitance to ganciclovir. He was started on maribavir 400 mg PO BID on 04/28/23. Seen in ID clinic on 08/23/23 with reports of fevers, abdominal distention, jaundice, and edema. Admitted to [facility] and found to have E coli bacteremia w/ imaging concerning for enterocolitis. CMV PCR +2980. Completed 2 weeks of ciprofloxacin and IV foscarnet. He was then placed on valcyte 900 mg PO BID and letermovir 480 mg PO daily. CMV mutation testing shows resistance to maribavir. Readmitted to [facility] 10/2023 with cough and back pain and found to have exudative pleural effusion. Aspergillus galactomannan on 10/04/23 was 0.67, repeat on 10/07/23 was negative. CMV PCR 121. Chest tubeplace w/ fungal culture negative. Given empiric course of Augmentin and discharged to resume letermovir and valganciclovir. Admitted to [facility] 01/2024 and found to have MSSA bacteremia along with left lower lobe cavitary pneumonia. RVP also positive for rhino/enterovirus. TTE w/o vegetations. He was d/c on IV cefazolin x 6 weeks but had PICC issues so this was switched to dalbavancin x 2 doses with initial dose on 03/14/24. He remained on Valcyte 900 mg BID and Letermovir 480 mg daily. Valcyte dose decreased to 450 mg PO BID 06/2024, letermovir continued. Interval History: Telephone visit completed with patient today. He remains on valcyte and letermovir without adverse effects. He reports his previous chronic diarrhea has now resolved. Recently had some head and sinuscongestion with a cough and wheezing. He was started on augmentin and is feeling much better. No fevers or chills. Last CMV PCR on 08/14 was 171. ROS: Review of Systems Constitutional: Negative for activity change, appetite change, chills, diaphoresis, fatigue, fever and unexpected weight change. HENT: Positive for sinus pressure (improving). Eyes: Negative for photophobia, redness and visual disturbance. Respiratory: Positive for cough (improving). Negative for wheezing. Cardiovascular: Negative for leg swelling. Gastrointestinal: Negative for abdominal distention, abdominal pain, blood in stool, diarrhea, nausea and vomiting. Musculoskeletal: Negative for arthralgias and myalgias. Skin: Negative for rash. 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) Autoimmune hepatitis ([facility]) ([facility]) Hypogammaglobulinemia ([facility]) Neutropenia associated with autoimmune disease ([facility]) ([facility]) Immunocompromised patient ([facility]) Community acquired pneumonia Lymphadenopathy [facility] current use of immunosuppressive drug Cytomegalovirus (CMV) viremia ([facility]) ([facility]) Elevated LFTs On antiviral therapy Myalgia Muscle weakness Chronic pansinusitis Immunocompromised ([facility]) Subcutaneous nodule of right lower extremity Eustachian tube dysfunction, bilateral Macrocytic anemia Ansarca Gram-negative bacteremia Rhinovirus Hypocalcemia and hypomagnesemia Jaundice Acute superficial DVT of left upper extremity Colitis Acute respiratory failure with hypoxia ([facility]) ([facility]) Edema of left lower extremity Parapneumonic effusion Chronic cough Pneumonia of left lung due to infectious organism, unspecified part of lung Shock ([facility]) ([facility]) Bicytopenia Hypocalcemia Hyponatremia Hypoalbuminemia CVID (common variable immunodeficiency) ([facility]) Portal hypertension ([facility]) ([facility]) History of pulmonary embolus (PE) Bacteremia History of splenectomy Chronic otitis media of both ears with effusion Allergies: Patient has no known allergies. HOME MEDICATIONS : albuterol HFA (PROVENTIL HFA,VENTOLIN HFA,PROAIR HFA) 90 mcg/actuation inhaler amoxicillin-clavulanate (AUGMENTIN) 875-125 mg per tablet ciprofloxacin-dexAMETHasone (CIPRODEX) otic suspension Cutaquig 16.5 % solution fluticasone propion-salmeteroL (ADVAIR DISKUS) 100-50 mcg/dose diskus inhaler furosemide (LASIX) 20 mg tablet guaiFENesin ER (MUCINEX) 600 mg 12 hr tablet letermovir (PREVYMIS) 480 mg tablet ofloxacin (FLOXIN) 0.3 % otic solution sodium chloride 0.9% injection spironolactone (ALDACTONE) 50 mg tablet tacrolimus 0.5 mg immediate-release capsule traZODone (DESYREL) 50 mg tablet ursodioL (ACTIGALL) 300 mg capsule valGANciclovir (VALCYTE) 450 mg tablet valGANciclovir (VALCYTE) 450 mg tablet Lab/Microbiology/Radiology/Diagnostic Review: Laboratory: Lab Results Component Value Date WBC 5.5 08/14/2024 HGB 12.4 (L) 08/14/2024 HCT 34.3 (L) 08/14/2024 MCV 103.0 (H) 08/14/2024 LABPLAT 269 08/14/2024 Lab Results Component Value Date NEUTROABS 1.8 08/14/2024 Lab Results Component Value Date GLUCOSE See Comment 08/14/2024 GLUCOSE 101 08/14/2024 CALCIUM See Comment 08/14/2024 CALCIUM 8.5 08/14/2024 SODIUM See Comment 08/14/2024 SODIUM 141 08/14/2024 POTASSIUM See Comment 08/14/2024 POTASSIUM 4.6 08/14/2024 CO2 See Comment 08/14/2024 CO2 23 08/14/2024 CHLORIDE See Comment 08/14/2024 CHLORIDE 109 08/14/2024 BUNSER See Comment 08/14/2024 BUNSER 16 08/14/2024 CREATININE 1.10 09/09/2024 Estimated Creatinine Clearance: 87.4 mL/min (by Cockcroft-Gault based on SCr of 1.1 mg/dL). Lab Results Component Value Date ALT See Comment 08/14/2024 ALT 33 08/14/2024 AST See Comment 08/14/2024 AST 47 08/14/2024 ALKPHOS See Comment 08/14/2024 ALKPHOS 271 (H) 08/14/2024 BILITOT See Comment 08/14/2024 BILITOT 1.5 (H) 08/14/2024 Lab Results Component Value Date CMVDNAIUML 171 08/14/2024 CMVDNAIUML 104 06/26/2024 CMVDNAIUML 100 03/20/2024 Assessment/Plan 29 y.o. 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 Has been on multiple different therapies including PO valganciclovir, PO letermovir, IV ganciclovir, and PO maribavir. Currently on valganciclovir 900 mg PO BID and letermovir 480 mg PO daily. Recent admissionfor MSSA bacteremia and LLL cavitary pneumonia. Cytomegalovirus infection (HCC) - Doing well today with no acute [...] for the first time in several years willplan to continue current regimen at this time. - Plan for CMV PCR along with CBC and CMP at least every 2-3 months. - Imaging 08/2024 reviewed which shows resolution of cavitary pneumonia with small L pleural effusion and tree-in-bud changes. No additional work up indicated at this time Follow up: - Return in about 3 months (around 12/31/2024) for phone visit. Visit Diagnosis: 1. Cytomegalovirus infection, unspecified cytomegaloviral infection type (HCC) Yajaira Ramirez the Nurse Practitioner, have reviewed and examined this patient with thesupervising MD present in the office suite, Dr. Duncan. This was a telemedicine visit with Beka howell which took place via telephone . During thevisit, I was located in the office and the patient was located at home in the [facility]. The patient visit started at 0825 and ended at 0832. My total encounter time on 10/02/2024 was 15 minutes which was spent in the activities documented in the note. This includes time spent prior to the visit and after the visit in direct care of the patient. This time does not include time spent in any separately reportable services. The patient: has been informed that the visit may not be secure and acknowledged the information. After being given an opportunity to ask questions about and discuss this type of visit, they verballyconsented to proceeding with the telephone/video visit and understand that this service replaces anoffice visit. DRIVER ENGINEER documented in this encounter Miscellaneous Notes * Assessment & Plan Note - Yajaira Eaton NP - 10/02/2024 1:34 PM PILE DRIVER ENGINEER Associated Problem(s): Cytomegalovirus infection (HCC) - Doing well today with no acute [...] for the first time in several years willplan to continue current regimen at this time. - Plan for CMV PCR along with CBC and CMP at least every 2-3 months. - Imaging 08/2024 reviewed which shows resolution of cavitary pneumonia with small L pleural effusion and tree-in-bud changes. No additional work up indicated at this time DRIVER ENGINEER * Telephone Encounter - Ny Griffin - 10/02/2024 8:20 AM CST Emailed to his mom DRIVER ENGINEER * Addendum Note - Yajaira Eaton NP - 10/02/2024 8:20 AM CSTAddended by: YAJAIRA EATON on: 10/02/2024 01:49 PM Modules accepted: Orders DRIVER ENGINEER documented in this encounter Plan of Treatment Scheduled Orders Name Type Priority Associated Diagnoses Orde r Schedule CBC with auto differential Lab Routine Cytomegalovirus infection, unspecified cytomegaloviral infection type (HCC) every 3 months for 4 Occurrences starting 10/02/2024 until 10/02/2025 Comprehensive metabolic panel (Outreach) Lab Routine Cytomegalovirus infection, unspecified cytomegaloviral infection type (HCC) every 3 months for 4 Occurrences starting 10/02/2024 until 10/02/2025 Cytomegalovirus (CMV) DNA PCR, quantitative Blood Microbiology Routine Cytomegalovirus infection, unspecified cytomegaloviral infection type (HCC) every 3 months for 4 Occurrences starting 10/02/2024 until 10/02/2025 Scheduled Procedures Name Priority Associated Diagnoses Date/Ti me COLONOSCOPY Encounter for screening for colorectal cancer in high risk patient Family history of rectal cancer documented as of this encounter Visit Diagnoses Diagnosis Cytomegalovirus infection, unspecified cytomegaloviral infection type (HCC)- Primary documented in this encounter Discontinued Medications Medication Sig Discontinue Reason Start Date End Da te valGANciclovir (VALCYTE) 450 mg tablet TAKE 2 TABLETS BY MOUTH 2 TIMES A DAY Reorder 05/12/2024 10/02/2024 documented as of this encounter Historical Medications * This list may reflect changes made after this encounter. letermovir (PREVYMIS) 480 mg tablet Take 1 tablet (480 mg total) by mouth daily added in this encounter Care Teams Stacker Operator Relationship Specialty Start Date End Date Guero Colunga DO [address] [address] PCP - General Internal Medicine 08/02/24 Amber Montesinos, SHAILESH Vending Machine Refiller Transplant 11/17/19 Jil Duncan MD Consulting Physician Infectious Diseases 01/10/20 Anita Gillespie MD Medical Oncologist/Law Office Assistant Medical Oncology 10/07/20 Tabitha Hurley MD [address] [place] [address] Consulting Physician Rheumatology 10/22/21 Massiel Gastelum MD [address] [place] [address] Consulting Physician Otolaryngology 08/27/22 documented as of this encounter
--- OUTSIDE RECORDS SUMMARY | 2024-10-28 06:02 | XMS_ITS | Encounter Summary ---
Author Organization [facility] Healthcare Address [address] [place] [address] Care Team Providers Care Youth Support Worker Name Role Phone Amber Montesinos RN Unavailable [phone] Jil Duncan MD Unavailable [phone] Anita Gillespie MD Unavailable [phone] Tabitha Hurley MD Unavailable [phone] Massiel Gastelum MD Unavailable [phone] Guero Colunga DO Primary Care Provider [phone] Reason for Referral * MRI/CAT/PET Scan (Routine) - Closed Specialty Diagnoses / Procedures Referred By Contac t Referred To Contact Radiology Diagnoses Chronic cough History of liver transplant (CMS/HCC) (HCC) Recurrent pneumonia Procedures CT Chest WO Contrast Susan Zhou MD [address] [facility] [address] [place] [address] Phone: tel: fax: [address] [address] Referral ID Status Reason Start Date Expiration Date Visits Re quested Visits Authorized [id number] Closed 08/03/2024 09/02/2025 1 1 Reason for Visit * MRI/CAT/PET Scan (Routine) - Closed Specialty Diagnoses / Procedures Referred By Sascha t Referred To Contact Radiology Diagnoses Chronic cough History of liver transplant (CMS/HCC) (HCC) Recurrent pneumonia Procedures CT Chest WO Contrast Susan Zhou MD [address] [place] [address] Phone: tel: fax: [address] [place] [address] Referral ID Status Reason Start Date Expiration Date Visits Re quested Visits Authorized [id number] Closed 08/03/2024 09/02/2025 1 1 Encounter Details Date Type Department Care Team (Latest Contact Info) Description 08/14/2024 7:03 AM CDT - 08/14/2024 11:59 PM CDT Hospital Encounter [facility] [address] [place] [id number] Chronic cough; History of liver transplant (CMS/HCC) [...] experiencing loneliness or isolatio n Never 02/29/2024 [facility] Utilities Answer Date Recorded In the past 12 months has e [employer], gas, oil, or water [employer] threatened to shut off services in your [...] 02/23/2024 How often do you attend chur or synagogue services? 1 to 4 times per year 02/23/2024 Do you belong to any clubs o r organizations such as orthodoxy groups, unions, fraternal or athletic groups, or [...] place to sleep or slept in a intermediate (including now)? No 02/23/2024 Personal Safety Answer Date Recorded Have you ever been in or are you currently in a harmful physical or emotional relationship or is someone making you feel afraid or unsafe? Denies 04/28/2024 Sex and Gender Information Value Date Recorded Sex Assigned at Not on file Legal Sex Male 6:28 AM CANDY SUPERVISOR Gender Identity Not on file Sexual [...] 1 08/02/2024 4 furosemide (LASIX) 20 mg tabletIndication s:Edema Take 1 tablet (20 mg total) by mouth daily Take 2 tabs (40mg) by mouth daily 03/03/2025 4 furosemide (LASIX) 20 mg tabletIndication s:Edema Take 2 tablets (40 mg total) by mouth every morning 60 tablet 1 06/19/2024 4 ofloxacin (FLOXIN) 0.3 % otic solution Administer 5 drops into each ear 2 (two) times a day Start 1 day after surgery and continue for 1 week and as needed if drainage recurs 04/28/2024 4 ursodioL (ACTIGALL) 300 mg capsuleIndicatio ns:Cholelithiasi [...] Name Priority Date/Time Associated Diagnosis Comments CT CHEST WO CONTRAST Schedule Routine, Read Routine (OP Routine) 08/14/2024 7:50 AM CDT Chronic cough History of liver transplant (CMS/HCC) (HCC) Recurrent pneumonia documented in this encounter Results * CT Chest WO Contrast (08/14/2024 7:50 [...] Zhou MD IMG CT PROCEDURES Final Result documented in this encounter Visit Diagnoses Diagnosis Chronic cough Cough History of liver transplant (CMS/HCC) (HCC) Liver replaced by transplant Recurrent pneumonia Pneumonia, organism unspecified documented in this encounter Care Teams Youth Support Worker Relationship Specialty Start Date End Date Guero Colunga DO [address] [place] [address] PCP - General Internal Medicine 08/02/24 Amber Montesinos, SHAILESH Escrow Agent Transplant 11/17/19 Jil Duncan MD Consulting Physician Infectious Diseases 01/10/20 Anita Gillespie MD Medical Oncologist/Interior Design Teacher Medical Oncology 10/07/20 Tabitha Hurley MD [address] [place] [address] Consulting Physician Rheumatology 10/22/21 Massiel Gastelum MD [address] [place] [address] Consulting Physician Otolaryngology 08/27/22 documented as of this encounter
--- OUTSIDE RECORDS SUMMARY | 2024-10-28 06:03 | XMS_ITS | Encounter Summary ---
Author Organization [facility] Address [address] [place] [address] Phone Care Team Providers Care Hand Touch Up Painter Name Role Phone Amber Montesinos RN Unavailable [phone] Jil Duncan MD Unavailable [phone] Anita Gillespie MD Unavailable [phone] Tabitha Hurley MD Unavailable [phone] Massiel Gastelum MD Unavailable [phone] Beka Nick MD Primary Care Provider [phone] Encounter Details Date Type Department Care Team (Late st Contact Info) Description 03/15/2024 Orders Only [facility] [address] [place] [id number] Thao Merino, DO [address] [place] [address] Social History Tobacco Use Types Packs/Day Years Used Date Smoking Tobacco: Never Smokeless Tobacco: Current Chew Alcohol Use Standard Drinks/Week Comments Yes 0 (1 standard drink = 0.6 oz pur e alcohol) occassional OASIS D0700: Social Isolation Answer Da te Recorded Frequency of experiencing loneliness or isolatio n Never 02/29/2024 [facility] Utilities Answer Date Recorded In the past [...] often do you attend chur ch or oriental orthodox services? 1 to 4 times per year 02/23/2024 Do you belong to any clubs o r organizations such as yarsani groups, unions, fraternal or athletic groups, or school groups? No 02/23/2024 How often do you attend meet ings of the clubs or organizations you belong to? Never 02/23/2024 Are you , , di vorced, , never , or living with a partner? Never 02/23/2024 AUDIT-C Answer Date Recorded Q1: How often do you have a drink containing alc ohol? Monthly or less 09/01/2023 Q2: How many drinks containi ng alcohol do you have on a typical day when you are drinking? 5 or 6 09/01/2023 Q3: How often do you have si x or more drinks on one occasion? Monthly 09/01/2023 Overall Financial Resource Strain (CARDIA) Answe r [...] to sleep or slept in a senior living (including now)? No 02/23/2024 Personal Safety Answer Date Recorded Have you ever been in or are you currently in a harmful physical or emotional relationship or is someone making you feel afraid or unsafe? Denies 03/08/2024 Sex and Gender Information Value Date Recorded Sex Assigned at Not on file Legal Sex Male 6:28 AM UROLOGIST Gender Identity Not on file Sexual Orientation Straight 08/22/2021 9: 23 AM CDT documented as of this encounter Plan of Treatment Scheduled Procedures Name Priority Associated Diagnoses Date/Ti me COLONOSCOPY Encounter for screening for colorectal cancer in high risk patient Family history of rectal cancer documented as of this encounter Visit Diagnoses Not on filedocumented in this encounter Discontinued Medications Medication Sig Discontinue Reason Start Date End Da te ceFAZolin (ANCEF) 2,000 mg/20 mL syringeIndications:Blo od Stream/Endovascular Infection [The details of the medication are not available because there are pending changes by a home health clinician.] Alternate therapy 02/26/2024 03/15/2024 documented as of this encounter Care Teams Hand Touch Up Painter Relationship Specialty Start Date End Date Beka Nick MD [address] [place] [address] PCP - General Family Practice 05/31/23 04/25/24 Amber Montesinos, SHAILESH Percussion Welding Machine Operator Transplant 11/17/19 Jil Duncan MD Consulting Physician Infectious Diseases 01/10/20 Anita Gillespie MD Medical Oncologist/Associate Trainer Medical Oncology 10/07/20 Tabitha Hurley MD [address] [place], [place] [id number] Consulting Physician Rheumatology 10/22/21 Massiel Gastelum MD [address] [place] [address] Consulting Physician Otolaryngology 08/27/22 documented as of this encounter
--- OUTSIDE RECORDS SUMMARY | 2024-10-28 06:03 | XMS_ITS | Encounter Summary ---
Author Organization [facility] Address [address] [place] [address] Phone Care Team Providers Care Chief Wharfinger Name Role Phone Amber Montesinos RN Unavailable [phone] Jil Duncan MD Unavailable [phone] Anita Gillespie MD Unavailable [phone] Tabitha Hurley MD Unavailable [phone] Massiel Gastelum MD Unavailable [phone] Beka Nick MD Primary Care Provider [phone] Encounter Details Date Type Department Care Team (Late st Contact Info) Description 03/20/[address] [facility] Oncology [address] [facility] Advanced Medicine 7th [place] [address] [place] [id number] Tae Gleason CMA Social History Tobacco Use Types Packs/Day Years Used Date Smoking Tobacco: Never Smokeless Tobacco: Current Chew Alcohol Use Standard Drinks/Week Comments Yes 0 (1 standard drink = 0.6 oz pur e alcohol) occassional OASIS D0700: Social Isolation Answer Da te Recorded Frequency of experiencing loneliness or isolatio n Never 02/29/2024 [facility] Utilities Answer Date Recorded In [...] often do you attend chur ch or jain services? 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 Thanks! documented in this encounter Plan of Treatment Scheduled Procedures Name Priority Associated Diagnoses Date/Ti me COLONOSCOPY Encounter for screening for colorectal cancer in high risk patient Family history of rectal cancer documented as of this encounter Visit Diagnoses Not on filedocumented in this encounter Care Teams Chief Wharfinger Relationship Specialty Start Date End Date Beka Nick MD [address] [place] [address] PCP - General Family Practice 05/31/23 04/25/24 Amber Montesinos, SHAILESH Graphic Designer Transplant 11/17/19 Jil Duncan MD Consulting Physician Infectious Diseases 01/10/20 Anita Gillespie MD Medical Oncologist/Manager Quality Medical Oncology 10/07/20 Tabitha Hurley MD [address] [facility] [address] [place], [place] [id number] Consulting Physician Rheumatology 10/22/21 Massiel Gastelum MD [address] [place] [address] Consulting Physician Otolaryngology 08/27/22 documented as of this encounter
--- OUTSIDE RECORDS SUMMARY | 2024-10-28 06:03 | XMS_ITS | Encounter Summary ---
Author Organization [facility] Address [address] [place] [address] Phone Care Team Providers Care Lacquer Sprayer Name Role Phone Amber Montesinos RN Unavailable [phone] Jil Duncan MD Unavailable [phone] Anita Gillespie MD Unavailable [phone] Tabitha Hurley MD Unavailable [phone] Massiel Gastelum MD Unavailable [phone] Beka Nick MD Primary Care Provider [phone] Encounter Details Date Type Department Care Team (Late st Contact Info) Description 04/03/2024 Telephone [facility] [id number] [facility] Medical Office Building [address] [place] [address] Danae Frazier CMA Social History Tobacco Use Types Packs/Day Years Used Date Smoking Tobacco: Never Smokeless Tobacco: Current Chew Alcohol Use Standard Drinks/Week Comments Yes 0 (1 standard drink = 0.6 oz pur e alcohol) occassional OASIS D0700: Social Isolation Answer Da te Recorded Frequency of experiencing loneliness or isolatio n Never 02/29/2024 [facility] Utilities Answer Date Recorded In the past 12 months has [employer], gas, oil, or water company threatened to [...] often do you attend chur ch or baptism services? 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 If he wants to wait while finishing the antibiotics, that is okay and he can give it several weeks to see if this improves. Thanks - AO documented in this encounter Plan of Treatment Scheduled Procedures Name Priority Associated Diagnoses Date/Ti hi COLONOSCOPY Encounter for screening for colorectal cancer in high risk patient Family history of rectal cancer documented as of this encounter Visit Diagnoses Not on filedocumented in this encounter Care Teams Lacquer Sprayer Relationship Specialty Start Date End Date Beka Nick MD [address] [place] [address] PCP - General Family Practice 05/31/23 04/25/24 Amber Montesinos RN Piccoloist Transplant 11/17/19 Jil Duncan MD Consulting Physician Infectious Diseases 01/10/20 Anita Gillespie MD Medical Oncologist/Patch Sander Medical Oncology 10/07/20 Tabitha Hurley MD [address] [place] [address] Consulting Physician Rheumatology 10/22/21 Massiel Gastelum MD [address] [place] [address] Consulting Physician Otolaryngology 08/27/22 documented as of this encounter
--- OUTSIDE RECORDS SUMMARY | 2024-10-28 06:03 | XMS_ITS | Encounter Summary ---
Author Organization [facility] Address [address] [place] [address] Care Team Providers Care Burrito Maker Name Role Phone Amber Montesinos RN Unavailable [phone] Jil Duncan MD Unavailable [phone] Anita Gillespie MD Unavailable [phone] Tabitha Hurley MD Unavailable [phone] Massiel Gastelum MD Unavailable Beka Nick MD Primary Care Provider [phone] Encounter Details Date Type Department Care Team (Late st Contact Info) Description 03/15/2024 Telephone [facility] Trans[facility] Liver [address] [facility] [phone] [place] [address] Ana Grant Social History Tobacco Use Types Packs/Day Years Used Date Smoking Tobacco: Never Smokeless Tobacco: Current Chew Alcohol Use Standard Drinks/Week Comments Yes 0 (1 standard drink = 0.6 oz pur e alcohol) occassional OASIS D0700: Social Isolation Answer Da te Recorded Frequency of experiencing loneliness or isolatio n Never 02/29/2024 [facility] Utilities Answer Date Recorded In [...] any clubs o r organizations such as adventist groups, unions, fraternal or athletic groups, or [...] on file 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 documented in this encounter Plan of Treatment Scheduled Procedures Name Priority Associated Diagnoses Date/Ti me COLONOSCOPY Encounter for screening for colorectal cancer in high risk patient Family history of rectal cancer documented as of this encounter Visit Diagnoses Not on filedocumented in this encounter Care Teams Burrito Maker Relationship Specialty Start Date End Date Beka Nick MD [address] [facility] [address] [place] [address] PCP - General Family Practice 05/31/23 04/25/24 Amber Montesinos, SHAILESH Slubber Hand Transplant 11/17/19 Jil Duncan MD Consulting Physician Infectious Diseases 01/10/20 Anita Gillespie MD Medical Oncologist/Lactation Consultant Medical Oncology 10/07/20 Tabitha Hurley MD [address] [place] [address] Consulting Physician Rheumatology 10/22/21 Massiel Gastelum MD [address] [place] [address] Consulting Physician Otolaryngology 08/27/22 documented as of this encounter
--- OUTSIDE RECORDS SUMMARY | 2024-10-28 06:03 | XMS_ITS | Encounter Summary ---
Author Organization [facility] Healthcare Address [address] [place] [address] Care Team Providers Care State Pilot Name Role Phone Amber Montesinos RN Unavailable [phone] Jil Duncan MD Unavailable [phone] Anita Gillespie MD Unavailable [phone] Tabitha Hurley MD Unavailable [phone] Massiel Gastelum MD Unavailable [phone] Beka Nick MD Primary Care Provider [phone] Reason for Visit * Medication Authorization (Routine) - Pending Review Specialty Diagnoses / Procedures Referred By Contac t Referred To Contact Diagnoses Bacteremia due to methicillin susceptible Staphylococcus aureus (MSSA) La Baxter, DEPUTY COMMONWE[employer]'S ATTORNEY [address] [facility] [address] [place] [address] Phone: tel: fax: Referral ID Status Reason Start Date Expiration Date V isits Requested Visits Authorized [id number] Pending Review 03/09/2024 04/08/2025 2 2 Encounter Details Date Type Department Care Team (Latest Contact Info) Description 03/14/2024 1:00 PM CDT Home Care Visit [facility] - [address] [place] [address] Salmons, Alex Silverio, RN SN INFUSION TREATMENT ROOM Social History Tobacco Use Types Packs/Day Years Used Date Smoking Tobacco: Never Smokeless Tobacco: Current Chew Alcohol Use Standard Drinks/Week Comments Yes 0 (1 standard drink = 0.6 oz pur e alcohol) occassional OASIS D0700: Social Isolation Answer Da te Recorded Frequency of experiencing loneliness or isolatio n Never 02/29/2024 [facility] Utilities Answer Date Recorded In the past [...] often do you attend chur ch or tenriism services? 1 to 4 times per year [...] place to sleep or slept in a long term (including now)? No 02/23/2024 Personal Safety Answer Date Recorded Have you ever been in or are you currently in a harmful physical or emotional relationship or is someone making you feel afraid or unsafe? 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 Gender Identity Not on file Sexual Orientation Straight 08/22/2021 9: 23 AM CDT documented as of this encounter Last Filed Vital Signs Vital Sign Reading Time Taken Comments Blood Pressure 116/71 03/14/2024 2:40 PM CDT Pulse 79 03/14/2024 2:40 PM CDT Temperature 36.3 ??C (97.4 ??F) 03/14/2024 2:40 PM CD T Respiratory Rate 16 03/14/2024 2:40 PM CDT Oxygen Saturation 100% 03/14/2024 2:40 PM CDT Inhaled Oxygen Concentration - - Weight - - Height 172.7 cm (5' 8 ) 03/14/2024 1:05 PM CDT Body Mass Index - - documented in this encounter Plan of Treatment Scheduled Procedures Name Priority Associated Diagnoses Date/Ti me COLONOSCOPY Encounter for screening for colorectal cancer in high risk patient Family history of rectal cancer documented as of this encounter Visit Diagnoses Not on filedocumented in this encounter Administered Medications Active Administered Medications - up to 3 most recent administrations Medication Order MAR Action Action Date Dose Rate Site sodium chloride 0.9% injection 10 mL, intravenous, 3 times daily PRN, line care, Starting on Wed03/14/24 at 1439, Indications: FlushingIndications:Flushi ng Given 03/14/2024 1:05 PM CDT 10 mL Right Upper Arm Inactive Administered Medications - up to 3 most recent administrations Medication Order MAR Action Action Date Dose Rate Site dalbavancin (DALVANCE) injection 1,500 mg 1,500 mg, intravenous, Every 2 weeks, First dose on Wed03/09/24 at 1515, For 2 dosesIndications:Bacteremia due to methicillin susceptible Staphylococcus aureus (MSSA) Given 03/28/2024 11:40 AM CDT 1,500 mg Given 03/14/2024 1:23 PM CDT 1,500 mg Ri ght Upper Arm documented in this encounter Home Health Visit - Care Plan Visit Details Visit Type -SN Infusion Shraddha tment Room Discipline -[facility] Problems Problem Description Start Date Status Goals Interventions Collect Specimen/Lab Draw Disciplines: [facility] Management of specimen samples, including lab draws, stool, urine, sputum & wound cultures 02/29/2024 Active - 1 problem intervention scheduled/documen mohsen in this visit Medications Disciplines: [facility] Management of IV Medications 02/29/2024 Active - 2 problem interventions scheduled/documen mohsen in this visit Safety concerns Disciplines: [facility] Safety needs related to infusion administration 02/29/2024 Active - 1 problem intervention scheduled/documen mohsen in this visit IV Therapy-Manageme nt, Education, and Maintenance Disciplines: [facility] IV Management, education, and maintenance for home IV therapy. 02/29/2024 Active - 2 problem interventions scheduled/documen mohsen in this visit Infection Prevention Disciplines: Skilled Disciplines Infection Prevention 02/29/2024 Active 1 goal linked to scheduled/docume nted intervention 2 goal interventions scheduled/documen mohsen in this visit Safety concerns Disciplines: Skilled Disciplines Alteration in safety 02/29/2024 Active 1 goal linked to scheduled/docume nted intervention 1 goal intervention scheduled/documen mohsen in this visit Goals Goal Associated Problem Outcome Goal Met? Visit Notes Verbalize signs of infection Description: Patient/caregiver will demonstrate knowledge of infection prevention strategies by verbalizing signs and symptoms of infection. Infection Prevention No Demonstrate use of safety precautions Description: Patient/caregiver maintains safe home environment as evidenced by remaining free from injury and demonstrates use of safety precautions. Safety concerns No Interventions Intervention Associated Problem/Goal Status Variance Visit Notes Collect Specimen/Draw Labs Problem:Collect Specimen/Lab Draw Completed No labs ordered Instruct on Medication Management Description: Instruct patient/caregiver in medication administration, purpose, dosages, preparation, scheduling, side effects, food/drug interactions, storage, drug allergies, and potential complications. Medications instructed on: Cefazolin. Problem:Medications Completed Instructed patient/caregiver in medication administration, purpose, dosages, preparation, scheduling, side effects, food/drug interactions, drug allergies, and potential complications. Patient and caregiver verbalize understanding IV Infusion Description: Instruct patient/caregiver on IV infusion Cefazolin Problem:Medications Completed Discontinued Instruct on IV complications Description: Instruct patient/caregiver on how to manage breaks in line, signs/symptoms of complications, who to contact for complications and how to contact the nurse, and infusion service Problem:Safety concerns Completed Instructed patient/caregiver on how to manage breaks in line, signs/symptoms of complications, who to contact for complications and how to contact the nurse, and infusion service Patient and caregiver verbalize understanding PICC Line Description: PICC Line with 1 Lumens. Change PICC line dressing within 48 hours if there is gauze under the occlusive dressing. Change dressing weekly and PRN if lifted/detached on any border edge or within transparent portion of dressing; visibly soiled; presence of moisture, drainage, or blood. Clean insertion site with chlorhexidine secure with securement device and apply transparent dressing. Instruct patient/caregiver on flushing line with 10 ml normal saline and then Heparin 5 ml daily and PRN for problems. Patient/caregiver may do in SN absence Skilled Nurse to place needleless access device, extension tubing, and disinfecting caps to the end of each line. Skilled Nurse to measure line migration and arm circumference at start of care and weekly with dressing change. PICC line : Instruct patient/caregiver to assess insertion site every 4 hours during waking hours for signs of complications and to report signs/symptoms or altered dressing integrity immediately, and on not allowing blood pressures or needle sticks to be done in PICC line arm. Problem:IV Therapy-Management, Education, and Maintenance Completed PICC removed following infusion per orders. Pressure held to site for five minutes until hemostasis achieved. Patient observed for thirty minutes after removal. During thirty minutes observation gauze became saturated with blood. Dreessing changed and patient monitored additional 15 minutes. IV Management and Education Description: Instruct patient/caregiver on Reason for Therapy: Cefazolin, to assess the insertion site once a day if not in use for continuous infusion, how to gather supplies, how to restock IV supplies in the home, prepare supplies, inspecting solution and supplies before infusing. Skilled Nurse to instruct patient/caregiver on how to properly administer medication, normal saline, and heparin, disconnecting IV medication and waste disposal. Skilled nurse to instruct patient and caregiver to monitor for signs and symptoms of adverse medication reaction such as: Redness, warmth, drainage, temp above 100.5, rash, shortness of breath, tingling, numbness, restlessness, nausea and vomiting and to report to SN or physician. Skilled nurse to instruct patient to contact home health agency if line is not functioning properly. Instruct on operation and management of infusion device- Patient has no pump Instruct patient/caregiver on infection prevention and signs of complications such as; Proper hand hygiene and use of gloves, safe use and cleaning of equipment, cleaning IV connections with alcohol prep, allowing to dry before attaching any syringe/tubing, using alcohol caps on all lumens of each line and on extension tubing when attached to a lumen, if infusion tubing is to be used for additional administration in a 24 hour period apply an end cap to infusion tubing, if transparent dressing is occlusive patient may shower, instruct patient to cover dressing. Signs of complications: Evidence of dislodgement, redness, tenderness, swelling, infiltration, induration, drainage, pain, temperate greater than 100.5, paresthesia, Numbness or tingling in extremity on side of access device, and to notify home health nurse or physician for any signs and symptoms of infection. Problem:IV Therapy-Management, Education, and Maintenance Completed Instructed patient/caregiver on proper medication administration, infection prevention techniques and signs and symptoms of complications. Patient and caregiver verbalize understanding Educate Family on Infection Prevention Description: Instructed family on signs and symptoms of infection IE: fever, odor, change in color, increased amount of drainage, purulent drainage, warmth. Problem:Infection Prevention Goal:Verbalize signs of infection Completed Instructed family on signs and symptoms of infection. Patient's mother verbalized understanding. Aspects of Care Description: Instruct patient/caregiver on universal precautions and home infection control measures Problem:Infection Prevention Goal:Verbalize signs of infection Completed Instructed patient/caregiver on universal precautions and home infection control measures. Patient and caregiver verbalize understanding Assess safety Description: Assess patient safety Problem:Safety concerns Goal:Demonstrate use of safety precautions Completed Patient verbalized no safety concerns. documented in this encounter Care Teams State Pilot Relationship Specialty Start Date End Date Beka Nick MD [address] [place] [address] PCP - General Family Practice 05/31/23 04/25/24 Amber Montesinos, SHAILESH Blister Packing Machine Tender Transplant 11/17/19 Jil Duncan MD Consulting Physician Infectious Diseases 01/10/20 Anita Gillespie MD Medical Oncologist/Histology Supervisor Medical Oncology 10/07/20 Tabitha Hurley MD [address] [place] [address] Consulting Physician Rheumatology 10/22/21 Massiel Gastelum MD [address] [place] [address] Consulting Physician Otolaryngology 08/27/22 documented as of this encounter
--- OUTSIDE RECORDS SUMMARY | 2024-10-28 06:03 | XMS_ITS | Encounter Summary ---
Author Organization [facility] Address [address] [place] [address] Phone Care Team Providers Care Supervisor Gluing Name Role Phone Amber Montesinos RN Unavailable [phone] Jil Duncan MD Unavailable [phone] Aniat Gillespie MD Unavailable [phone] Tabitha Hurley MD Unavailable [phone] Massiel Gastelum MD Unavailable [phone] Beka Nick MD Primary Care Provider [phone] Encounter Details Date Type Department Care Team (Late st Contact Info) Description 04/03/2024 Orders Only [facility] Infectious Diseases [address] [place] [address] [address] [place] [address] Lisandra Auguste, AIDEN [address] [place] [address] Social History Tobacco Use Types Packs/Day Years Used Date Smoking Tobacco: Never Smokeless Tobacco: Current Chew Alcohol Use Standard Drinks/Week Comments Yes 0 (1 standard drink = 0.6 oz pur e alcohol) occassional OASIS D0700: Social Isolation Answer Da te Recorded Frequency of experiencing loneliness or isolatio n Never 02/29/2024 [facility] Utilities Answer Date Recorded In the past [...] any clubs o r organizations such as caodaism groups, unions, fraternal or athletic groups, or [...] on file 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 Gender Identity Not on file Sexual Orientation Straight 08/22/2021 9: 23 AM CDT documented as of this encounter Ordered Prescriptions Prescription Sig Dispense Quantity Refills Last Filled Start Date End Date letermovir (PREVYMIS) 480 mg tablet Take 1 tablet (480 mg total) by mouth daily 30 tablet 5 04/03/2024 09/30/2024 documented in this encounter Plan of Treatment Scheduled Procedures Name Priority Associated Diagnoses Date/Ti me COLONOSCOPY Encounter for screening for colorectal cancer in high risk patient Family history of rectal cancer documented as of this encounter Visit Diagnoses Not on filedocumented in this encounter Care Teams Supervisor Gluing Relationship Specialty Start Date End Date Beka Nick MD [address] [place] [address] PCP - General Family Practice 05/31/23 04/25/24 Amber Montesinos RN Mid Level Net Developer Transplant 11/17/19 Jil Duncan MD Consulting Physician Infectious Diseases 01/10/20 Anita Gillespie MD Medical Oncologist/Electrical Lineworker Medical Oncology 10/07/20 Tabitha Hurley MD [address] [facility] [address] [place] [address] Consulting Physician Rheumatology 10/22/21 Massiel Gastelum MD [address] [place] [address] Consulting Physician Otolaryngology 08/27/22 documented as of this encounter
--- OUTSIDE RECORDS SUMMARY | 2024-10-28 06:03 | XMS_ITS | Encounter Summary ---
Author Organization [facility] Healthcare Address [address] [place] [address] Care Team Providers Care Forge Helper Name Role Phone Amber Montesinos RN Unavailable [phone] Jil Duncan MD Unavailable [phone] Anita Gillespie MD Unavailable [phone] Tabitha Hurley MD Unavailable [phone] Massiel Gastelum MD Unavailable [phone] Beka Nick MD Primary Care Provider [phone] Encounter Details Date Type Department Care Team (Latest Contact Info) Description 03/28/2024 11:30 AM CDT - 03/28/2024 11:59 PM CDT Hospital Encounter [address] [id number] Discharge Disposition: Discharge to home or self care Social History Tobacco Use Types Packs/Day Years Used Date Smoking Tobacco: Never Smokeless Tobacco: Current Chew Alcohol Use Standard Drinks/Week Comments Yes 0 (1 standard drink = 0.6 oz pur e alcohol) occassional OASIS D0700: Social Isolation Answer Da te Recorded Frequency of experiencing loneliness or isolatio n Never 02/29/2024 [facility] Utilities Answer Date Recorded In the [...] place to sleep or slept in a [facility] (including now)? No 02/23/2024 Personal Safety Answer Date Recorded Have you ever been in or are you currently in a harmful physical or emotional relationship or is someone making you feel afraid or unsafe? 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 Gender Identity Not on file Sexual Orientation Straight 08/22/2021 9: 23 AM CDT documented as of this encounter Medications at Time of Discharge Cutaquig 16.5 % solutionIndicati ons:primary immune deficiency [...] Indications: temporary redness of face and neck tacrolimus 0.5 mg immediate-releas e capsuleIndicatio ns:Prevention of Liver Transplant Rejection Take 1 capsule (0.5 mg total) by mouth every other day 45 capsule 3 01/03/2024 5 furosemide (LASIX) 20 mg tablet Take 2 tablets (40 mg total) by mouth daily 60 tablet 1 12/02/2023 4 furosemide (LASIX) 20 mg tabletIndication s:Edema Take 1 tablet (20 mg total) by mouth daily Take 2 tabs (40mg) by mouth daily 03/03/2025 4 magnesium oxide (MAG-OX) 400 mg (241.3 mg elemental magnesium) tabletIndication s:hypomagnesemia Take 1 tablet (400 mg total) by mouth 2 (two) times a day for 7 days Take while on foscarnet 14 tablet 09/03/2023 4 predniSONE (DELTASONE) 10 mg tablet Take 40Mg PO for 3 days, then 30Mg PO for 3 days, then 20Mg PO for 3 days, then 10Mg PO for 3 days. 30 tablet 02/07/2024 4 spironolactone (ALDACTONE) 50 mg tablet Take 2 tablets (100 mg total) by mouth daily 60 tablet 1 12/02/2023 4 spironolactone (ALDACTONE) 50 mg tabletIndication s:Ascites Take 50 mg by mouth daily. Take 2 tab by mouth daily Indications: ascites 02/25/2024 4 traZODone (DESYREL) 50 mg tabletIndication s:insomnia associated with depression Take 1 tablet (50 mg total) by mouth nightly 30 tablet 4 01/07/2024 4 triamcinolone (KENALOG) 0.1 % cream Apply topically 2 (two) times a day as needed for rash 80 g 2 12/03/2023 4 ursodioL (ACTIGALL) 300 mg capsuleIndicatio ns:Cholelithiasi s Prevention Take 2 capsules (600 mg total) by mouth daily with dinner 180 capsule 3 07/27/2023 4 valGANciclovir (VALCYTE) 450 mg tabletIndication s:Prophylaxis, Medical Take 2 tablets (900 mg total) by mouth 2 (two) times a day 120 tablet 5 09/21/2023 4 documented as of this encounter Discharge Disposition Disposition Code Departure Means Destination Discharge to home or self care documented in this encounter Plan of Treatment Scheduled Procedures Name Priority Associated Diagnoses Date/Ti al COLONOSCOPY Encounter for screening for colorectal cancer in high risk patient Family history of rectal cancer documented as of this encounter Procedures Procedure Name Priority Date/Time Associated Diagnosis Comments GLUCOSE, RANDOM (OUTREACH) Routine 03/28/2024 11:30 AM CDT EGFR Routine 03/28/2024 11:30 AM CDT DIFFERENTIAL AUTO Routine 03/28/2024 11: 30 AM CDT COMPREHENSIVE METABOLIC PANEL WITHOUT GLUCOSE (OUTREACH) Routine 03/28/2024 11:30 AM CDT CBC WITH AUTO DIFFERENTIAL Routine 03/28/2024 11:30 AM CDT documented in this encounter Results * eGFR (03/28/2024 11:30 AM CDT) eGFR >90 >=60 mL/min/1. 73 [...] interpretive data was last reviewed 2021. Blood 03/28/2024 11:3 0 AM CDT 03/28/2024 1:50 PM CDT us Thao Merino DO LAB BLOOD ORDERABLES Final Res ult [facility] Department [place] [address] * (ABNORMAL) Differential, auto (03/28/2024 11:30 AM CDT) Neutrophil abs 1.5 1.5 - 6.5 K/cumm Imm gran abs 0.1 0.0 - 0.1 K[facility]cumm [facility] Lymphocyte abs 1.6 0.8 - 3.3 K/cumm [facility] Monocyte abs 1.2(H) 0.2 - 0.8 K/cumm [facility] Eosinophil abs 0.0 0.0 - 0.5 K/cumm [facility] Basophil abs 0.1 0.0 - 0.1 K/cumm [facility] Neutrophil pct 33.2 % [facility] Comment: Interpretive Data Percent cell count reference ranges are not reported, since discordance with absolute values may lead to misinterpretation of CBC data. Current Interpretive Data was last revised on 2018. Imm gran pct 1.1 % [facility] Comment: Interpretive Data Percent cell count reference ranges are not reported, since discordance with absolute values may lead to misinterpretation of CBC data. Current Interpretive Data was last revised on 2018. Lymphocyte pct 36.2 % [facility] Comment: Interpretive Data Percent cell count reference ranges are not reported, since discordance with absolute values may lead to misinterpretation of CBC data. Current Interpretive Data was last revised on 2018. Monocyte pct 27.5 % [facility] Comment: Interpretive Data Percent cell count reference ranges are not reported, since discordance with absolute values may lead to misinterpretation of CBC data. Current Interpretive Data was last revised on 2018. Eosinophil pct 0.4 % [facility] Comment: Interpretive Data Percent cell count reference ranges are not reported, since discordance with absolute values may lead to misinterpretation of CBC data. Current Interpretive Data was last revised on 2018. Basophil pct 1.6 % [facility] Comment: Interpretive Data Percent cell count reference ranges are not reported, since discordance with absolute values may lead to misinterpretation of CBC data. Current Interpretive Data was last revised on 2018. Blood 03/28/2024 11:3 0 AM CDT 03/28/2024 1:47 PM CDT us Thao Merino DO LAB BLOOD ORDERABLES Final Res ult Performing Organization Address [facility] [address] [facility] Co de Phone Number [facility] Department [place] [address] * (ABNORMAL) CBC with auto differential (03/28/2024 11:30 AM CDT) WBC 4.5 3.8 - 9.9 K/cumm Hgb 11.9(L) 13.0 - 17.5 g/dL [facility] Hct 33.0(L) 38.9 - 50.3 % [facility] Plt 188 150 - 400 K/cumm [facility] MPV 10.9 9.1 - 12.3 fL [facility] RBC 3.06(L) 4.30 - 5.80 M/cumm [facility] MCV 107.8(H) 81.3 - 96.4 fL [facility] MCH 38.9(H) 27.1 - 33.3 pg [facility] MCHC 36.1(H) 32.3 - 35.7 g/dL [facility] RDW CV 17.3(H) 11.1 - 14.9 % [facility] RDW SD 68.8(H) 35.7 - 48.1 fL [facility] NRBC abs 0.00 0.00 - 0.01 K/cumm [facility] Blood 03/28/2024 11:3 0 AM CDT 03/28/2024 1:47 PM CDT us Thao Merino DO LAB BLOOD ORDERABLES Final Res ult Performing Organization Address [facility] [address]/ZIP Co de Phone Number [facility] [place] [address] * Glucose, random (Outreach) (03/28/2024 11:30 AM CDT) [facility] Glucose 106 70 - 199 mg/dL Comment: Interpretive Data [...] interpretive data was last revised 2022. Blood 03/28/2024 11:3 0 AM CDT 03/28/2024 1:46 PM CDT us Thao Merino DO LAB BLOOD ORDERABLES Final Res ult [facility] Department [place] [address] * (ABNORMAL) Comprehensive metabolic panel, without glucose (Outreach) (03/28/2024 11:30 AM CDT) [facility] Sodium 139 135 - 145 mmol/L Potassium, pl 4.0 3.3 - 4.9 mmol/L [facility] Chloride 110 97 - 110 mmol/L [facility] CO2 20(L) 22 - 32 mmol/L [facility] Anion gap 9 2 - 15 mmol/L [facility] BUN 12 6 - 25 mg/dL [facility] Creatinine 1.06 0.80 - 1.30 mg/dL [facility] Calcium 8.5 8.5 - 10.3 mg/dL [facility] Protein, pl 5.8(L) 6.5 - 8.5 g/dL [facility] Albumin 3.2(L) 3.5 - 5.0 g/dL [facility] Bilirubin, total 1.3(H) 0.1 - 1.2 mg/dL [facility] Alk phos 197(H) 40 - 130 Units/L [facility] AST 50 10 - 50 Units/L [facility] ALT 36 7 - 55 Units/L [facility] Blood 03/28/2024 11:3 0 AM CDT 03/28/2024 1:46 PM CDT us Thao WolfgangMarco Merino DO LAB BLOOD ORDERABLES Final Res ult [facility] Department [place] [address] documented in this encounter Visit Diagnoses Not on filedocumented in this encounter Care Teams Forge Helper Relationship Specialty Start Date End Date Beka Nick MD [address] [place] [address] PCP - General Family Practice 05/31/23 04/25/24 Amber Montesinos RN [facility] 11/17/19 Jil Duncan MD Consulting Physician Infectious Diseases 01/10/20 Anita Gillespie MD Medical Oncologist/Project Management Engineer Medical Oncology 10/07/20 Tabitha Hurley MD [address] [place] [address] Consulting Physician Rheumatology 10/22/21 Massiel Gastelum MD [address] [place] [address] Consulting Physician Otolaryngology 08/27/22 documented as of this encounter
--- OUTSIDE RECORDS SUMMARY | 2024-10-28 06:03 | XMS_ITS | Encounter Summary ---
Author Organization [facility] Healthcare Address [address] [place] [address] Care Team Providers Care Glass Rolling Machine Operator Name Role Phone Amber Montesinos RN Unavailable [phone] Jil Duncan MD Unavailable [phone] Anita Gillespie MD Unavailable [phone] Tabitha Hurley MD Unavailable [phone] Massiel Gastelum MD Unavailable Beka Nick MD Primary Care Provider [phone] Encounter Details Date Type Department Care Team (Late st Contact Info) Description 03/15/2024 Orders Only [facility] Transplant Liver [address] [facility] [phone] [place] [address] Ana Grant Encounter for long-term (current) use of high-risk medication (Primary Dx); History of liver transplant (CMS/HCC) (HCC) Social History Tobacco Use Types Packs/Day Years Used Date Smoking Tobacco: Never Smokeless Tobacco: Current Chew Alcohol Use Standard Drinks/Week Comments Yes 0 (1 standard drink = 0.6 oz pur e alcohol) occassional OASIS D0700: Social Isolation Answer Da te Recorded Frequency of experiencing loneliness or isolatio n Never 02/29/2024 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 Gender Identity Not on file Sexual Orientation Straight 08/22/2021 9: 23 AM CDT documented as of this encounter Plan of Treatment Scheduled Orders Name Type Priority Associated Diagnoses Orde r Schedule Comprehensive metabolic panel Lab Routine Encounter for long-term (current) use of high-risk medication History of liver transplant (CMS/HCC) (HCC) Every 4 weeks for 12 Occurrences starting 03/15/2024 until 03/15/2025 CBC with auto differential Lab Routine Encounter for long-term (current) use of high-risk medication History of liver transplant (CMS/HCC) (HCC) Every 4 weeks for 12 Occurrences starting 03/15/2024 until 03/15/2025 Gamma GT Lab Routine Encounter for long-term (current) use of high-risk medication History of liver transplant (CMS/HCC) (HCC) Every 4 weeks for 12 Occurrences starting 03/15/2024 until 03/15/2025 Tacrolimus level trough Lab Routine Encounter for long-term (current) use of high-risk medication History of liver transplant (CMS/HCC) (HCC) Every 4 weeks for 12 Occurrences starting 03/15/2024 until 03/15/2025 Scheduled Procedures Name Priority Associated Diagnoses Date/Ti me COLONOSCOPY Encounter for screening for colorectal cancer in high risk patient Family history of rectal cancer documented as of this encounter Visit Diagnoses Diagnosis Encounter for long-term (current) use of high-risk medication- Primary Encounter for long-term (current) use of other medications History of liver transplant (CMS/HCC) (HCC) Liver replaced by transplant documented in this encounter Care Teams Glass Rolling Machine Operator Relationship Specialty Start Date End Date Beka Nick MD [address] [place] [address] PCP - General Family Practice 05/31/23 04/25/24 Amber Montesinos, SHAILESH Locksmith Transplant 11/17/19 Jil Duncan MD Consulting Physician Infectious Diseases 01/10/20 Anita Gillespie MD Medical Oncologist/Copra Sampler Medical Oncology 10/07/20 Tabitha Hurley MD [address] [place] [address] Consulting Physician Rheumatology 10/22/21 Massiel Gastelum MD [address] [place] [address] Consulting Physician Otolaryngology 08/27/22 documented as of this encounter
--- OUTSIDE RECORDS SUMMARY | 2024-10-28 06:03 | XMS_ITS | Encounter Summary ---
Author Organization [facility] Address [address] [place] [address] Phone Care Team Providers Care Insole And Outsole Splitter Name Role Phone Amber Montesinos RN Unavailable [phone] Jil Duncan MD Unavailable [phone] Anita Gillespie MD Unavailable [phone] Tabitha Hurley MD Unavailable [phone] Massiel Gastelum MD Unavailable [phone] Unknown, Notinfile Primary Care Provider Unavail able Reason for Visit * Reason Comments Follow-up Encounter Details Date Type Department Care Team (Latest Contact Info) Description 06/26/2024 8:20 AM CDT Office Visit [facility] Infectious Diseases [address] [place] [address] [address] [place] [address] Lisandra Auguste, AIDEN [address] [place] [address] 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HCC) (Primary Dx) Social History Tobacco Use Types Packs/Day Years Used Date Smoking Tobacco: Never Smokeless Tobacco: Current Chew Comments:Chews tobacco on o ccasion Alcohol Use Standard Drinks/Week Comments Yes 0 (1 standard drink = 0.6 oz pur e alcohol) occassional OASIS D0700: Social Isolation Answer Da te Recorded Frequency of experiencing loneliness or isolatio n Never 02/29/2024 [facility] Utilities Answer Date Recorded In [...] often do you attend chur ch or rastafarian services? 1 to 4 times per year [...] place to sleep or slept in a fci (including now)? No 02/23/2024 Personal Safety Answer Date Recorded Have you ever been in or are you currently in a harmful physical or emotional relationship or is someone making you feel afraid or unsafe? 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 Gender Identity Not on file Sexual Orientation Straight 08/22/2021 9: 23 AM CDT documented as of this encounter Last Filed Vital Signs Vital Sign Reading Time Taken Comments Blood Pressure 119/77 06/26/2024 8:28 AM CDT Pulse 81 06/26/2024 8:28 AM CDT Temperature 36.8 ??C (98.2 ??F) 06/26/2024 8:28 AM CD T Respiratory Rate - - Oxygen Saturation - - Inhaled Oxygen Concentration - - Weight 60.3 kg (133 lb) 06/26/2024 8:28 AM CDT Height 172 cm (5' 7.72 ) 06/26/2024 8:28 AM CDT Body Mass Index 20.39 06/26/2024 8:28 AM CDT documented in this encounter Patient Instructions * Patient Instructions* Lisandra Auguste NP - 06/26/2024 8:20 AM CDT - Decrease valcyte to 450 mg twice daily - Continue letermovir documented in this encounter Progress Notes * Lisandra Auguste, NEIGHBORHOOD CONSERVATION OFFICER - 06/26/2024 8:20 AM CDT Infectious Diseases Return Visit Patient Name: Beka [facility] INFECTIOUS DISEASES [address] [place] [id number] Subjective Chief complaint of CMV, recent MSSA [...] [place] [address]. He was also noted to have lymphadenopathy [...] levels starting 06/20/22. He was admitted to [facility] 07/09-07/12/22 due to persistent CMV viremia while on marabovir along with 2 week history of cough, fevers, chills, fatigue/malaise. RVP positive for rhinovirus and adenovirus. CMV resistance testing obtained which showed resistance to maribavir. This was discontinued on 07/16/23and he was restarted on Valcyte 900 mg PO BID. CMV levels at OSH on 11/14/22 were [id number]. Reached out to patient and it seemed [...] abdominal distention, jaundice, and edema. Admitted to [facility] and found to have E coli bacteremia w/ imaging concerning for enterocolitis. CMV PCR +2980. Completed 2 weeks of ciprofloxacin and IV foscarnet. He was then placed on valcyte 900 mg PO BID and letermovir 480 mg PO daily. CMV mutation testing shows resistance to maribavir. Readmitted to [facility] 10/2023 with cough and back pain and found to have exudative pleural effusion. Aspergillus galactomannan on 10/04/23 was 0.67, repeat on 10/07/23 was negative. CMV PCR 121. Chest tubeplace w/ fungal culture negative. Given empiric course of Augmentin and discharged to resume letermovir and valganciclovir. Admitted to [facility] 01/2024 and found to have MSSA bacteremia along with left lower lobe cavitary pneumonia. RVP also positive for rhino/enterovirus. TTE w/o vegetations. He was d/c on IV cefazolin x 6 weeks but had PICC issues so this was switched to dalbavancin x 2 doses with initial dose on 03/14/24. Interval History: Patient presents to ID clinic today for routine follow up accompanied by his mother. He reports overall doing well since last visit. He recently had tubes placed in his ears to help with recurrent infections. He has also continued to struggle with sinus issues. Recently completed a course of augmentin, he will follow up with ENT today. He has continued to have a cough since last admission for pneumonia but states this has improved. He remains on valcyte and letermovir. His diarrhea has improvedand he reports it is mostly associated with his diet. ROS: Review of Systems Constitutional: Negative for activity change, appetite change, chills, diaphoresis, fatigue, fever and unexpected weight change. Eyes: Negative for photophobia, redness and visual disturbance. Respiratory: Positive for cough. Cardiovascular: Negative for leg swelling. Gastrointestinal: Positive for diarrhea (intermittent, improved). Negative for abdominal distention, abdominal pain, blood in stool, nausea and vomiting. Musculoskeletal: Negative for arthralgias and myalgias. Skin: Negative for rash. 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HCC) Elevated LFTs On antiviral therapy Myalgia Muscle weakness Chronic pansinusitis Immunocompromised (HCC) Subcutaneous nodule of right lower extremity Eustachian tube dysfunction, bilateral Macrocytic anemia Ansarca Gram-negative bacteremia Rhinovirus Hypocalcemia and hypomagnesemia Jaundice Acute superficial DVT of left upper extremity Colitis Acute respiratory failure with hypoxia (CMS/HCC) (HCC) Edema of left lower extremity Parapneumonic effusion Subacute cough Pneumonia of left lung due to infectious organism, unspecified part of lung Shock ([facility]) ([facility]) Bicytopenia Hypocalcemia Hyponatremia Hypoalbuminemia CVID (common variable immunodeficiency) ([facility]) Portal hypertension (CMS/[facility]) ([facility]) History of pulmonary embolus (PE) Bacteremia History of splenectomy Chronic otitis media of both ears with effusion Allergies: Patient has no known allergies. HOME MEDICATIONS : furosemide (LASIX) 20 mg tablet letermovir (PREVYMIS) 480 mg tablet spironolactone (ALDACTONE) 50 mg tablet tacrolimus 0.5 mg immediate-release capsule valGANciclovir (VALCYTE) 450 mg tablet ciprofloxacin-dexAMETHasone (CIPRODEX) otic suspension Cutaquig 16.5 % solution furosemide (LASIX) 20 mg tablet guaiFENesin ER (MUCINEX) 600 mg 12 hr tablet ofloxacin (FLOXIN) 0.3 % otic solution predniSONE (DELTASONE) 10 mg tablet sodium chloride 0.9% injection traZODone (DESYREL) 50 mg tablet ursodioL (ACTIGALL) 300 mg capsule Physical Exam Constitutional: General: He is not in acute distress. Appearance: He is not toxic-appearing. HENT: Head: Normocephalic and atraumatic. Eyes: Extraocular Movements: Extraocular movements intact. Cardiovascular: Rate and Rhythm: Normal rate and regular rhythm. Heart sounds: Normal heart sounds. No murmur heard. Pulmonary: Effort: Pulmonary effort is normal. No respiratory distress. Breath sounds: Normal breath sounds. Musculoskeletal: General: No swelling. Skin: General: Skin is warm and dry. Coloration: Skin is not jaundiced or pale. Findings: No bruising or rash. Neurological: General: No focal deficit present. Mental Status: He is alert and oriented to person, place, and time. Mental status is at baseline. Psychiatric: Mood and Affect: Mood normal. Behavior: Behavior normal. Thought Content: Thought content normal. Judgment: Judgment normal. Lab/Microbiology/Radiology/Diagnostic Review: Laboratory: Lab Results Component Value Date WBC 5.6 06/26/2024 HGB 13.1 06/26/2024 HCT 38.0 (L) 06/26/2024 MCV 111.4 (H) 06/26/2024 LABPLAT 217 06/26/2024 Lab Results Component Value Date NEUTROABS 3.1 06/26/2024 Lab Results Component Value Date GLUCOSE 110 06/26/2024 CALCIUM 9.0 06/26/2024 SODIUM 139 06/26/2024 POTASSIUM 4.1 06/26/2024 CO2 26 06/26/2024 CHLORIDE 104 06/26/2024 BUNSER 9 06/26/2024 CREATININE 0.95 06/26/2024 Estimated Creatinine Clearance: 96.1 mL/min (by Cockcroft-Gault based on SCr of 0.95 mg/dL). Lab Results Component Value Date ALT 33 06/26/2024 AST 56 (H) 06/26/2024 ALKPHOS 269 (H) 06/26/2024 BILITOT 1.5 (H) 06/26/2024 Assessment/Plan 29 y.o. male with history of [...] MSSA bacteremia and LLL cavitary pneumonia. 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HCC) - Overall doing well with no acute concerns today. Continues to have persistent cough but states ithas improved. Remains on letermovir and valcyte - Discussed with patient that plan will be to keep him on antivirals for 12 months from date of being on foscarnet. We will reevaluate at next ID visit and determine if we can stop one or both of hisantiviral medications - Today he can decrease valcyte to 450 mg PO BID. He will continue on letermovir - Labs today: CBC, CMP, CMV PCR - Follow up with transplant team, BMT, and ENT as scheduled Follow up: - Return in about 3 months (around 09/26/2024) for phone visit. Visit Diagnosis: 1. 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HCC) Lisandra Ramirez the Nurse Practitioner, have reviewed and examined this patient with thesupervising MD present in the office suite, Dr. Duncan. Cosigned by Jil Duncan MD at 07/17/2024 3:25 PM CDT Associated attestation - Jil Duncan MD - 07/17/2024 3:25 PM CDT I have seen and examined the patient. I agree with the findings and plan of care as documented in the NEIGHBORHOOD CONSERVATION OFFICER's note. My total encounter time on 06/26/2024 was 25 minutes which was spent in the activitiesdocumented in the note. This includes time spent prior to the visit and after the visit in direct care of the patient. This time does not include time spent in any separately reportable services. documented in this encounter Miscellaneous Notes * Assessment & Plan Note - Lisandra Auguste NP - 06/26/2024 2:19 PM CDT Associated Problem(s): Cytomegalovirus (CMV) viremia ([facility]/HCC) ([facility]) - Overall doing well with no acute concerns today. Continues to have persistent cough but states ithas improved. Remains on letermovir and valcyte - Discussed with patient that plan will be to keep him on antivirals for 12 months from date of being on foscarnet. We will reevaluate at next ID visit and determine if we can stop one or both of hisantiviral medications - Today he can decrease valcyte to 450 mg PO BID. He will continue on letermovir - Labs today: CBC, CMP, CMV PCR - Follow up with transplant team, BMT, and ENT as scheduled documented in this encounter Plan of Treatment Scheduled Procedures Name Priority Associated Diagnoses Date/Ti wa COLONOSCOPY Encounter for screening for colorectal cancer in high risk patient Family history of rectal cancer documented as of this encounter Procedures Procedure Name Priority Date/Time Associated Diagnosis Comments CYTOMEGALOVIRUS (CMV) DNA, QUANT GEN LAB Routine 06/26/2024 9:04 AM CDT 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HCC) GLUCOSE, RANDOM (OUTREACH) Routine 06/26/2024 9:01 AM CDT 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HCC) EGFR Routine 06/26/2024 9:01 AM CDT 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HCC) DIFFERENTIAL AUTO Routine 06/26/2024 9:0 1 AM CDT 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HCC) COMPREHENSIVE METABOLIC PANEL WITHOUT GLUCOSE (OUTREACH) Routine 06/26/2024 9:01 AM CDT 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HCC) COMPREHENSIVE METABOLIC PANEL (OUTREACH) Routine 06/26/2024 9:01 AM CDT 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HCC) CBC WITH AUTO DIFFERENTIAL Routine 06/26/2024 9:01 AM CDT 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HCC) documented in this encounter Results * (ABNORMAL) Cytomegalovirus (CMV) DNA PCR, quantitative Blood (06/26/2024 9:04 AM CDT) [facility] CMV DNA Detected( A) [facility] Comment: Interpretive Data: The quantifiable range of this assay is 34 IUnits/mL to 10,000,000 IUnits/mL (1.53 log IUnits/mL to 7.0 log IUnits/mL). Testing was performed by the NIA 6800 CMV Test ([employer] Testing performed at [facility]. Current interpretive data was last revised on 2021. CMV DNA IU/mL 104 IUnits/mL [facility] CMV DNA log IU/mL 2.02 log IUnits/mL [facility] Blood 06/26/2024 9:04 AM CDT 06/26/2024 2:20 PM CDT us Lisandra Auguste NP LAB MICROBIOLOGY - GENERA L ORDERABLES Final Result Performing Organization Address [facility] de Phone Number BROOKE BUTCHER [facility] [place] [address] [facility] * eGFR (06/26/2024 9:01 AM CDT) eGFR >90 >=60 mL/min/1. 73 [...] interpretive data was last reviewed 2021. Blood 06/26/2024 9:01 AM CDT 06/26/2024 1:45 PM CDT us Lisandra Auguste NP LAB BLOOD ORDERABLES Chata l Result Performing Organization Address [facility] de Phone Number BROOKE [facility] Department [place] [address] * (ABNORMAL) Differential, auto (06/26/2024 9:01 AM CDT) Neutrophil abs 3.1 1.5 - 6.5 K/cumm Imm gran abs 0.1 0.0 - 0.1 K/cumm [facility] Lymphocyte abs 0.8 0.8 - 3.3 K/cumm [facility] Monocyte abs 1.6(H) 0.2 - 0.8 K/cumm [facility] Eosinophil abs 0.0 0.0 - 0.5 K/cumm [facility] Basophil abs 0.1 0.0 - 0.1 K/cumm [facility] Neutrophil pct 54.8 % [facility] Comment: Interpretive Data Percent cell count reference ranges are not reported, since discordance with absolute values may lead to misinterpretation of CBC data. Current Interpretive Data was last revised on 2018. Imm gran pct 1.8 % [facility] Comment: Interpretive Data Percent cell count reference ranges are not reported, since discordance with absolute values may lead to misinterpretation of CBC data. Current Interpretive Data was last revised on 2018. Lymphocyte pct 13.9 % [facility] Comment: Interpretive Data Percent cell count reference ranges are not reported, since discordance with absolute values may lead to misinterpretation of CBC data. Current Interpretive Data was last revised on 2018. Monocyte pct 27.9 % [facility] Comment: Interpretive Data Percent cell count reference ranges are not reported, since discordance with absolute values may lead to misinterpretation of CBC data. Current Interpretive Data was last revised on 2018. Eosinophil pct 0.2 % [facility] Comment: Interpretive Data Percent cell count reference ranges are not reported, since discordance with absolute values may lead to misinterpretation of CBC data. Current Interpretive Data was last revised on 2018. Basophil pct 1.4 % [facility] Comment: Interpretive Data Percent cell count reference ranges are not reported, since discordance with absolute values may lead to misinterpretation of CBC data. Current Interpretive Data was last revised on 2018. Blood 06/26/2024 9:01 AM CDT 06/26/2024 1:41 PM CDT Lisandra Auguste NEIGHBORHOOD CONSERVATION OFFICER LAB BLOOD ORDERABLES Chata l Result Performing Organization Address [facility] de Phone Number BROOKE [facility] [place] [address] * Glucose, random (Outreach) (06/26/2024 9:01 AM CDT) Glucose 110 70 - 199 mg/dL Comment: Interpretive Data [...] interpretive data was last revised 2022. Blood 06/26/2024 9:01 AM CDT 06/26/2024 1:41 PM CDT Lisandra Auguste NEIGHBORHOOD CONSERVATION OFFICER LAB BLOOD ORDERABLES Chata l Result Performing Organization Address [facility] de Phone Number BROOKE [facility] Department [place] [address] * (ABNORMAL) Comprehensive metabolic panel, without glucose (Outreach) (06/26/2024 9:01 AM CDT) Sodium 139 135 - 145 mmol/L Potassium, pl 4.1 3.3 - 4.9 mmol/L [facility] Chloride 104 97 - 110 mmol/L [facility] CO2 26 22 - 32 mmol/L [facility] Anion gap 9 2 - 15 mmol/L [facility] BUN 9 6 - 25 mg/dL [facility] Creatinine 0.95 0.80 - 1.30 mg/dL [facility] Calcium 9.0 8.5 - 10.3 mg/dL [facility] Protein, pl 5.8(L) 6.5 - 8.5 g/dL [facility] Albumin 3.3(L) 3.5 - 5.0 g/dL [facility] Bilirubin, total 1.5(H) 0.1 - 1.2 mg/dL [facility] Alk phos 269(H) 40 - 130 Units/L [facility] AST 56(H) 10 - 50 Units/L [facility] ALT 33 7 - 55 Units/L [facility] Blood 06/26/2024 9:01 AM CDT 06/26/2024 1:41 PM CDT us Lisandra Auguste NEIGHBORHOOD CONSERVATION OFFICER LAB BLOOD ORDERABLES Chata cuadra Result [facility] Department [place] [address] * (ABNORMAL) CBC with auto differential (06/26/2024 9:01 AM CDT) WBC 5.6 3.8 - 9.9 K/cumm Hgb 13.1 13.0 - 17.5 g/dL [facility] Hct 38.0(L) 38.9 - 50.3 % [facility] Plt 217 150 - 400 K/cumm [facility] MPV 10.9 9.1 - 12.3 fL [facility] RBC 3.41(L) 4.30 - 5.80 M/cumm [facility] MCV 111.4(H) 81.3 - 96.4 fL [facility] MCH 38.4(H) 27.1 - 33.3 pg [facility] MCHC 34.5 32.3 - 35.7 g/dL [facility] RDW CV 15.7(H) 11.1 - 14.9 % [facility] RDW SD 64.6(H) 35.7 - 48.1 fL [facility] NRBC abs 0.00 0.00 - 0.01 K/cumm [facility] Blood 06/26/2024 9:01 AM CDT 06/26/2024 1:41 PM CDT us Lisandra Auguste NEIGHBORHOOD CONSERVATION OFFICER LAB BLOOD ORDERABLES Chata l Result [facility] Department [place] [address] documented in this encounter Visit Diagnoses Diagnosis 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 documented in this encounter Care Teams Insole And Outsole Splitter Relationship Specialty Start Date End Date Unknown, Notinfile PCP - General 04/26/24 08/01/24 Amber Montesinos, RN Chief Cardiopulmonary Technologist Transplant 11/17/19 Jil Duncan MD Consulting Physician Infectious Diseases 01/10/20 Anita Gillespie MD Medical Oncologist/Wellness Consultant Medical Oncology 10/07/20 Tabitha Hurley MD [address] [place] [address] Consulting Physician Rheumatology 10/22/21 Massiel Gastelum MD [address] [place] [address] Consulting Physician Otolaryngology 08/27/22 documented as of this encounter
--- OUTSIDE RECORDS SUMMARY | 2024-10-28 06:03 | XMS_ITS | Encounter Summary ---
Author Organization [facility] Address [address] [place] [address] Phone Care Team Providers Care Engineer Name Role Phone Amber Montesinos RN Unavailable [phone] Jil Duncan MD Unavailable [phone] Anita Gillespie MD Unavailable [phone] Tabitha Hurley MD Unavailable [phone] Massiel Gastelum MD Unavailable [phone] Guero Colunga DO Primary Care Provider [phone] Encounter Details Date Type Department Care Team (Late st Contact Info) Description 08/02/2024 9:00 AM CDT Office Visit [facility] Gasteroenterology [address] [facility] 12th [place] [address] [place] [address] Susan Zhou MD [address] [place] [address] Chronic cough (Primary Dx); History of liver transplant (CMS/HCC) (HCC); 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HCC); Encounter for therapeutic drug level monitoring Social History Tobacco Use Types Packs/Day Years Used Date Smoking Tobacco: Never Smokeless Tobacco: Current Chew Comments:Chews tobacco on o ccasion Alcohol Use Standard Drinks/Week Comments Yes 0 (1 standard drink = 0.6 oz pur e alcohol) occassional OASIS D0700: Social Isolation Answer Da te Recorded Frequency of experiencing loneliness or isolatio n Never 02/29/2024 [facility] Utilities Answer Date Recorded In the [...] often do you attend chur ch or mandaeism services? 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 Gender Identity Not on file Sexual Orientation Straight 08/22/2021 9: 23 AM CDT documented as of this encounter Last Filed Vital Signs Vital Sign Reading Time Taken Comments Blood Pressure 107/71 08/02/2024 8:41 AM CDT Pulse 77 08/02/2024 8:41 AM CDT Temperature 36.7 ??C (98 ??F) 08/02/2024 8:41 AM CDT Respiratory Rate - - Oxygen Saturation 97% 08/02/2024 8:41 AM CDT Inhaled Oxygen Concentration - - Weight 63 kg (138 lb 12.8 oz) 08/02/2024 8:41 AM CDT Height 170.2 cm (5' 7 ) 08/02/2024 8:41 AM CDT Body Mass Index 21.74 08/02/2024 8:41 AM CDT documented in this encounter Patient Instructions * Patient Instructions* Susan Zhou MD - 08/02/2024 9:00 AM CDT CXR today I will make sure we repeat CMV PCR with next labs if we can't add on Follow up in 6 months documented in this encounter Progress Notes * Susan Zhou MD - 08/02/2024 9:00 AM CDT Images from the original note were not included. LIVER TRANSPLANT CLINIC VISIT Mailing Address: [address] [place] [address] [id number] [place] [address] Date: 08/02/2024 PCP: Guero Colunga DO Reason for consult: Post-Liver Transplant Follow-up History of Present Illness Beka Nichols is a 29 y.o. 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 Interim Events: - Admitted 08/2023 with fever, anasarca, and jaundice found to have E coli bacteremia. Liver biopsyrevealed a lymphocyte predominant portal infiltrate but no classic features of rejection. There rama increase in laron sinusoidal fibrosis and findings of PSVD with nodularity/ NRH ( which can be seen in CVID). His liver chemistries improved and in light of CMV immunosuppression was not escalated. - Admitted in 10/2023 with bacterial pneumonia complicated by parapneumonic effusion. Required MICUadmission and BiPAP. - Last visit 12/2023 Today, he presents for follow up with his mother. He continues to experience intermittent coughing typically dry with occasional post tussive emesis. No fever, chills, recurrent rash, or other concerns. No increase in LE edema or abdominal girth. Review of Systems: Pertinent positive and negative systems are described in the HPI; the remainder of the 14 systems are negative. Past History Past Medical History: Diagnosis Date Cancer (CMS/HCC) (HCC) Chronic diarrhea CMV (cytomegalovirus infection) (HCC) Community acquired pneumonia of right middle lobe of lung 01/06/2019 Generalized enlarged lymph nodes Lymphadenopathy, generalized - (Added by TW Conv) History of non-Hodgkin's lymphoma History of non-Hodgkin's lymphoma - (Added by TW Conv) Localized enlarged lymph nodes LAD (lymphadenopathy), mediastinal - (Added by TW Conv) Motion sickness riding in back seat of car Other complications of unspecified transplanted organ and tissue PTLD (post-transplant lymphoproliferative disorder) - (Added by TW Conv) PNA (pneumonia) Pulmonary emboli (HCC) Past Surgical History: Procedure Laterality Date BIOPSY LIVER N/A 02/02/2020 BIOPSY LYMPH NODE SUPERFICIAL N/A 05/22/2014 BRONCHOSCOPY COLONOSCOPY 2022 EXCHANGE PICC LINE Left 12/24/2021 FUNCTIONAL ENDOSCOPIC SINUS SURGERY 08/28/2022 IR PICC LINE PLACEMENT > 5 YEARS N/A 12/19/2021 IR PICC LINE PLACEMENT > 5 YEARS N/A 12/26/2021 IR PICC LINE PLACEMENT > 5 YEARS 01/2024 removed in March 2024 LIVER TRANSPLANT 1998 OTHER SURGICAL HISTORY 01/06/2019 Excisional lymph node biopsy of neck SPLENECTOMY 2013 TYMPANOSTOMY TUBE PLACEMENT Bilateral 04/28/2024 UPPER GASTROINTESTINAL ENDOSCOPY US ABDOMEN COMPLETE W LIVER DOPPLER (C) Right 10/18/2018 US GUIDED BIOPSY LIVER N/A 10/18/2018 US GUIDED BIOPSY LIVER N/A 05/14/2020 US GUIDED BIOPSY LIVER N/A 08/31/2022 US GUIDED BIOPSY LYMPH NODE SUPERFICIAL LEFT N/A 10/13/2019 US GUIDED BIOPSY LYMPH NODE SUPERFICIAL LEFT N/A 10/07/2021 WISDOM TOOTH EXTRACTION Family History Problem Relation Age of Onset Rectal cancer Mother Rectal cancer - (Added by TW Conv) No Known Problems Father Diabetes type II Sister Family history of type 2 diabetes mellitus - (Added by TW Conv) Anesthesia problems Neg Hx Social History Tobacco Use Smoking status: Never Smokeless tobacco: Current Types: Chew Tobacco comments: Chews tobacco on occasion Substance and Sexual Activity Drug use: Never Sexual activity: Defer Alcohol Use: Not At Risk (04/28/2024) AUDIT-C Frequency of Alcohol Consumption: 2-4 times a month Average Number of Drinks: 1 or 2 Frequency of Binge Drinking: Never No Known Allergies Medications Current Outpatient Medications on File Prior to Visit Medication Sig Dispense Refill Cutaquig 16.5 % solution Inject 1 Dose under the skin every 30 (thirty) days furosemide (LASIX) 20 mg tablet Take 2 tablets (40 mg total) by mouth every morning 60 tablet 1 guaiFENesin ER (MUCINEX) 600 mg 12 hr tablet Take 1 tablet (600 mg total) by mouth 2 (two) times a day 60 tablet 11 letermovir (PREVYMIS) 480 mg tablet Take 1 tablet (480 mg total) by mouth daily (Patient taking differently: Take 1 tablet (480 mg total) by mouth every morning) 30 tablet 5 ofloxacin (FLOXIN) 0.3 % otic solution Administer 5 drops into each ear 2 (two) times a day Start 1day after surgery and continue for 1 week and as needed if drainage recurs spironolactone (ALDACTONE) 50 mg tablet TAKE 2 TABLETS (100 MG TOTAL) BY MOUTH EVERY MORNING 180 tablet 0 tacrolimus 0.5 mg immediate-release capsule Take 1 capsule (0.5 mg total) by mouth every other day 45 capsule 3 traZODone (DESYREL) 50 mg tablet TAKE 1 TABLET BY MOUTH NIGHTLY (Patient taking differently: Take 1tablet (50 mg total) by mouth as needed for sleep) 90 tablet 3 ursodioL (ACTIGALL) 300 mg capsule Take 2 capsules (600 mg total) by mouth daily with dinner 180 capsule 3 valGANciclovir (VALCYTE) 450 mg tablet TAKE 2 TABLETS BY MOUTH 2 TIMES A DAY (Patient taking differently: Take 2 tablets (900 mg total) by mouth 2 (two) times a day Two tabs in the AM one in the PM) 360 tablet 1 albuterol HFA (PROVENTIL HFA,VENTOLIN HFA,PROAIR HFA) 90 mcg/actuation inhaler Inhale 2 puffs q 6h PRN cough, shortness of breath, or wheezing 1 each 1 ciprofloxacin-dexAMETHasone (CIPRODEX) otic suspension Administer 4 drops into each ear 2 (two) times a day (Patient not taking: Reported on 08/02/2024) 7.5 mL 0 fluticasone propion-salmeteroL (ADVAIR DISKUS) 100-50 mcg/dose diskus inhaler Inhale 1 puff 2 (two)times a day Rinse mouth with water after use. Do not swallow. 1 each 1 [START ON 03/03/2025] furosemide (LASIX) 20 mg tablet Take 1 tablet (20 mg total) by mouth daily Take2 tabs (40mg) by mouth daily (Patient not taking: Reported on 08/02/2024) sodium chloride 0.9% injection Infuse 10 mL into a venous catheter 3 (three) times a day as needed for line care. Indications: temporary redness of face and neck (Patient not taking: Reported on 04/21/2024) No current facility-administered medications on file prior to visit. Objective BP 107/71 Pulse 77 Temp 36.7 ??C (98 ??F) (Temporal) Ht 170.2 cm (5' 7 ) Wt 63 kg (138 lb 12.8 oz) SpO2 97% BMI 21.74 kg/m?? Wt Readings from Last 3 Encounters: 08/02/24 63 kg (138 lb 12.8 oz) 08/02/24 63 kg (138 lb 12.8 oz) 06/26/24 60.1 kg (132 lb 9.6 oz) Gen: awake, alert, in no acute distress HEENT: moist mucous membranes, no scleral icterus PULM: left sided scattered crackles, normal respiratory effort CVS: regular rate and rhythm, no murmur appreciated Abd: soft, nontender without rebound or guarding, nondistended, normoactive bowel sounds, surgical scar well healed without hernia present Ext: + clubbing, no edema MSK: well nourished Skin: No jaundice, scattered areas of hyperpigmentation and papular rash on abdominal wall Neuro: Alert and oriented x3, no tremor Labs: Lab Results Component Value Date WBC 5.4 08/02/2024 HGB 12.9 (L) 08/02/2024 LABPLAT 263 08/02/2024 MCV 111.7 (H) 08/02/2024 RDW 13.0 02/28/2022 LYMPHSABS 1.7 08/02/2024 MONOABS 2.2 (H) 08/02/2024 EOSABS 0.1 08/02/2024 SODIUM 138 08/02/2024 POTASSIUM 4.7 08/02/2024 CHLORIDE 108 08/02/2024 CO2 25 08/02/2024 BUNSER 19 08/02/2024 CREATININE 1.07 08/02/2024 GLUCOSE 115 08/02/2024 CALCIUM 8.6 08/02/2024 ANIONGAP 5 08/02/2024 AST 32 08/02/2024 ALT 22 08/02/2024 ALKPHOS 261 (H) 08/02/2024 LABGGT 50 11/03/2023 BILITOT 1.1 08/02/2024 BILIDIR 4.7 (H) 10/03/2023 ALBUMIN 3.0 (L) 08/02/2024 PROT 5.6 (L) 08/02/2024 Lab Results Component Value Date APTT 40 (H) 02/22/2024 PT 16.8 (H) 02/22/2024 INR 1.47 (H) 02/22/2024 Lab Results Component Value Date TRIG 139 06/12/2020 CHOL 135 06/12/2020 HDL 31 (L) 06/12/2020 LDLCALC 76 06/12/2020 Lab Results Component Value Date AFP 2.4 02/02/2020 No results for input(s): TACROTR , EVEROLIMUS in the last 72 hours. Pathology: 08/27/23: A. Lymph node, retroperitoneal, endoscopic ultrasound-guided fine-needle biopsy - Few fragments of organized mixed lymphoid tissue, with scattered cells positive for CMV by immunostain - No definitive evidence of patient's prior post-transplant lymphoproliferative disease (negative for EBV by JAKOB-RASHAUN) - Morphologic assessment limited by crush artifact - See comment B. Liver, allograft, approximately 14 years post-transplantation, endoscopic ultrasound-guided corebiopsy - Limited biopsy specimen with canalicular and hepatocellular cholestasis, with portal mixed inflammation and bile duct injury, with possible loss of a subset of bile ducts (see comment) - Sinusoidal and lobular mixed inflammation with scattered rare foci of hepatocyte dropout - Periportal fibrosis, patchy extensive perisinusoidal fibrosis with delicate bridging, and one area of portal-central approximation - No definitive evidence of patient's prior post-transplant lymphoproliferative disease (negative for EBV by JAKOB-RASHAUN) - Mild stainable iron within Kupffer cells and hepatocytes (score 1-2+ out of 4) - No evidence to support [id number] deficiency by PAS-D - No definitive CMV viral inclusions by immunostain - See comment C. Lymph node, retroperitoneal, tissue for flow cytometry - No clonal B-cell or aberrant T-cell populations detected - See comment The clinical history of CVID, autoimmune hepatitis (status post orthotopic liver transplant x 2, most recent in 2008), complicated by EBV+ post-transplant lymphoproliferative disease (PTLD; in remission post-treatment in 2018) and CMV viremia, is noted. Also noted is the current hospitalization with jaundice and E. coli bacteremia. The retroperitoneal lymph node biopsy (parts A and C) show findings compatible with CMV lymphadenitis. There is no evidence of the patient's prior EBV-positive PTLD in the lymph node biopsy. The liver allograft biopsy (part B) shows multiple patterns of injury. There is no evidence of the patient's prior EBV-positive PTLD in the liver biopsy, as there is no B cell infiltrate and JAKOB ISHis negative. The differential diagnosis for the constellation of findings include CVID-associated liver disease (see reference below), which is frequently associated with pericellular fibrosis and increased intrasinusoidal and portal infiltrates, among other findings. The previous biopsy ([id number]), which was reviewed in comparison with the present biopsy, showed many of the same features, but there were also nodular regenerative hyperplasia-like changes, which is also commonly reported in CVID patients. However, the more extensive fibrosis in the current biopsy, compared to the prior, obscures assessment for this feature. While many of the hepatic findings could be explained by CVID, other features, such as the bile duct injury and partial loss, chronic cholestasis, hepatocellular loss and ongoing dropout, and the increasing fibrosis over time, are inadequately explained by CVID. These raise a concern for some additional component of evolving chronic rejection, sinusoidal-predominant pattern of T cell mediated rejection, lymphocyte-predominant autoimmune hepatitis, or a combination of above. There is no definitive endotheliitis, making a classical acute cellular rejection less likely. Other causes of Zone 3 pericellular fibrosis, such as venous outflow obstruction, or metabolic/toxic/drug injury, should also be clinically excluded. Clinical correlation is needed. Radiology & other Diagnostics: reviewed CXR (08/02/24): Stable cardiomediastinal silhouette with upper normal to mildly enlarged heart size. 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 New patchy airspace opacities in the left lower lobe retrocardiac region could be due to aspiration or pneumonia. Recommend radiographic follow-up in 4-6 weeks to assess resolution. Right lung is clear. No pleural effusion or pneumothorax. CT chest (12/03/23): IMPRESSION: 1. Chest radiograph abnormality as a CT appearance of a right lower lobe bacterial lobar pneumonia. Recommend follow-up of this in 4-6 weeks after antibiotic treatment to ensure resolution. 2. No substantial improvement or worsening in multistation lymphadenopathy related to post transplant lymphoproliferative disorder 3. Marked decrease in size of previously noted right pleural effusion on prior CT with overall small bilateral pleural effusions and good aeration of the lung aside from the right lower lobe pneumonia. MRI/MRCP (08/26/23): Liver: Postsurgical changes of hepatic transplantation. No fat or iron deposition. - Bile ducts: No ductal dilation - Focal liver lesions: None - Vasculature: Portal and hepatic veins are patent. Arterial anatomy is better characterized on recent CT but appears grossly normal and patent on today's exam. Gallbladder: Surgically absent Pancreas: Normal Spleen: Surgically absent Adrenals: Normal Kidneys: Multifocal areas of wedge-shaped cortical diffusion restriction and mild hypoenhancement. No perinephric collection. No hydronephrosis. Other Findings: Moderate cardiomegaly. No pericardial effusion. Unchanged small right and trace left pleural effusions. Unchanged moderate volume ascites and diffuse mesenteric and body wall edema. Unchanged wall thickening of the right colon. Stable diffuse lower thoracic, periportal, mesenteric and retroperitoneal adenopathy in keeping with known lymphoproliferative disease. For reference, unchanged 2.4 cm right pericardiophrenic lymph node on series 23 image 58. Patchy airspace opacities in the right lung are better characterized on prior CT but favored to likely represent pneumonia. Diffuse T1 marrow hypointensity. IMPRESSION: 1. Stable postsurgical changes of hepatic transplantation without biliary ductal dilation or focal hepatic observation. Hepatic transplant vascular anatomy appears grossly normal but is better characterized on recent CT. 2. Stable diffuse lower thoracic, and abdominal adenopathy in keeping with known lymphoproliferative disorder. 3. Findings suspicious for bilateral pyelonephritis. Correlation with urinalysis is recommended. No perinephric collection or hydronephrosis. 4. Mildly increased small right and trace left effusions with moderate ascites and diffuse body wall edema in keeping with anasarca. 5. Right lung opacities are better characterized on prior CT likely representing multifocal pneumonia. 6. Right colon and terminal ileum enterocolitis also better characterized on recent prior CT. GI Procedures: Colonoscopy (09/01/23): - Preparation of the colon was fair. - The entire examined colon is normal. Biopsied. - The examined portion of the ileum was normal. Biopsied. Biopsies normal. EGD/EUS (08/27/23): EGD: - No esophageal varices. - The gastric mucosa was diffusely edematous and cobblestoned reminiscent of portal hyperentsive gastropathy vs 2/2 diffuse anasarca/volume overload. EUS: - Many malignant-appearing lymph nodes were visualized in the celiac region (level 20), perigastricregion, peripancreatic region and shanita hepatis region. A 2.7cm retroperitoneal lymph node was targed for transgastric sampling. Fine needle aspiration for histology and flow cytometry was performed. - There was no evidence of significant pathology in the left lobe of the liver. The patient is posta splenectomy. Successful EUS guided liver biopsy was performed as described. Assessment/Plan Beka Nichols is a 29 y.o. male w/ hx of AIH s/p OLT (03/1999) c/b PTLD ( c-Myc, EBV+) s/p R-CHOP, EPOCH-R, last in 2018, CVID, ITP s/p splenectomy who presents for follow up. 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 #Liver transplant recipient - Indication: [facility] - Immunosuppression regimen: tacrolimus 0.5 mg every other day, goal 3-5 - Allograft function: improving liver chemistries, last bx 08/2023 with ongoing cholestasis with mixed sinusoidal and lobular inflammation of uncertain cause and PSVD changes with F3 fibrosis, no classic evidence of TCMR or PTLD. - Labs and drug level monitoring every month - Continue ursodiol - EGD 08/2023 no varices, repeat in 1-2 years #Volume: improved, previous anasarca - Continue current diuretics: Lasix 40 mg and spironolactone 100 mg daily #CMV viremia - PCR undetectable - Continue current regimen per ID #Recurrent pneumonia, persistent cough - CXR today revealed new patchy airspace opacities in the left lower lobe retrocardiac region couldbe due to aspiration or pneumonia. - Augmentin 875 mg BID x 7 days - CT chest w/o contrast - Referral to pulmonology #PTLD - continue to follow with Dr. Head #Healthcare maintenance: - Blood pressure: under good control - Lipids/DM: recommend annual monitoring - Renal function: normal - Bone health: due for repeat DEXA scan - Dental: recommend regular cleanings - Dermatology: reviewed importance of sun protection and annual skin checks - Colorectal cancer screening: Mother diagnosed with rectal ca at age 30. Brother had colo already and no polyps. Colonooscopy in 09/2023 (fair prep) no polyps. Repeat in 5 years. Follow up in 6 months For this visit, we reviewed the patient's previous medical documentation, laboratory data, radiographic imaging studies, and endoscopic data. The risks of the patient's condition and proposed treatment modalities were discussed and questions answered. 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 Therapy completed 02/07/2024 08/02/2024 documented as of this encounter Care Teams Engineer Relationship Specialty Start Date End Date Guero Colunga DO [address] [facility] [address] [id number] PCP - General Internal Medicine 08/02/24 Amber Montesinos, SHAILESH Transaction Manager Transplant 11/17/19 Jil Duncan MD Consulting Physician Infectious Diseases 01/10/20 Anita Gillespie MD Medical Oncologist/Apprenticeship Representative Medical Oncology 10/07/20 Taibtha Hurley MD [address] [place] [address] Consulting Physician Rheumatology 10/22/21 Massiel Gastelum MD [address] [place] [address] Consulting Physician Otolaryngology 08/27/22 documented as of this encounter
--- OUTSIDE RECORDS SUMMARY | 2024-10-28 06:03 | XMS_ITS | Encounter Summary ---
Author Organization [facility] Address [address] [place] [address] Phone Care Team Providers Care Software Asset Management Analyst Name Role Phone Amber Montesinos RN Unavailable [phone] Jil Duncan MD Unavailable [phone] Anita Gillespie MD Unavailable [phone] Tabitha Hurley MD Unavailable [phone] Massiel Gastelum MD Unavailable [phone] Beka Nick MD Primary Care Provider [phone] Encounter Details Date Type Department Care Team (Latest Contact Info) Description 03/20/2024 Orders Only [facility] [address] [facility] Advanced Medicine 7th [place] [address] [place] [address] Yulisa Bhakta, SHAILESH Hypogammaglobulinemia (HCC) (Primary Dx) Social History Tobacco Use Types Packs/Day Years Used Date Smoking Tobacco: Never Smokeless Tobacco: Current Chew Alcohol Use Standard Drinks/Week Comments Yes 0 (1 standard drink = 0.6 oz pur e alcohol) occassional OASIS D0700: Social Isolation Answer Da te Recorded Frequency of experiencing loneliness or isolatio n Never 02/29/2024 [facility] Utilities Answer Date Recorded In the past 12 months has [employer], [employer], or [employer] threatened to shut off services in your [...] often do you attend chur ch or protestant services? 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 Gender Identity Not on file Sexual Orientation Straight 08/22/2021 9: 23 AM CDT documented as of this encounter Plan of Treatment Scheduled Procedures Name Priority Associated Diagnoses Date/Ti me COLONOSCOPY Encounter for screening for colorectal cancer in high risk patient Family history of rectal cancer documented as of this encounter Results * (ABNORMAL) IgG (03/20/2024 11:21 AM CDT) Immunoglobulin G 502(L) 700 - 1,600 mg/dL Blood 03/20/2024 11:2 1 AM CDT 03/20/2024 12:15 PM CDT us Anita Gillespie MD LAB BLOOD ORDERABLES Final Result Performing Organization Address City/State/[facility] Co sd Phone Number [facility] Department [place] [address] documented in this encounter Visit Diagnoses Diagnosis Hypogammaglobulinemia (HCC)- Primary Unspecified hypogammaglobulinemia documented in this encounter Care Teams Software Asset Management Analyst Relationship Specialty Start Date End Date Beka Nick MD [address] [place] [address] PCP - General Family Practice 05/31/23 04/25/24 Amber Montesinos, SHAILESH Die Technician Transplant 11/17/19 Jil Duncan MD Consulting Physician Infectious Diseases 01/10/20 Anita Gillespie MD Medical Oncologist/Resource Management Planner Medical Oncology 10/07/20 Tabitha Hurley MD [address] [facility] [address] [place] [address] Consulting Physician Rheumatology 10/22/21 Massiel Gastelum MD [address] [place] [address] Consulting Physician Otolaryngology 08/27/22 documented as of this encounter
--- OUTSIDE RECORDS SUMMARY | 2024-10-28 06:03 | XMS_ITS | Encounter Summary ---
Author Organization [facility] Address [address] [place] [address] Phone Care Team Providers Care Manager Auto Name Role Phone Amber Montesinos RN Unavailable [phone] Jil Duncan MD Unavailable [phone] Anita Gillespie MD Unavailable [phone] Tabitha Hurley MD Unavailable [phone] Massiel Gastelum MD Unavailable [phone] Unknown, Notinfile Primary Care Provider Unavail able Reason for Visit * Reason Comments Post-op Encounter Details Date Type Department Care Team (Late st Contact Info) Description 06/26/2024 11:40 AM CDT Office Visit [facility] ENT [address] [facility] Medical [address] [address] Massiel Gastelum MD [address] [facility] [address] [place], [place] [id number] Tympanostomy tube check (Primary Dx); Chronic pansinusitis; Status post functional endoscopic sinus surgery; Immunocompromised (HCC); Eustachian tube dysfunction, bilateral Social History Tobacco Use Types Packs/Day Years [...] often do you attend chur ch or sabianist services? 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 Gender Identity Not on file Sexual Orientation Straight 08/22/2021 9: 23 AM CDT documented as of this encounter Last Filed Vital Signs Vital Sign Reading Time Taken Comments Blood Pressure - - Pulse - - Temperature - - Respiratory Rate - - Oxygen Saturation - - Inhaled Oxygen Concentration - - Weight 60.1 kg (132 lb 9.6 oz) 06/26/2024 11:33 AM CDT Height 170.2 cm (5' 7 ) 06/26/2024 11:33 AM CDT Body Mass Index 20.77 06/26/2024 11:33 AM CDT documented in this encounter Patient Instructions * Patient Instructions* Massiel Gastelum MD - 06/26/2024 11:40 AM CDT Recommend Floxin eardrops for 1-2 days to the left ear documented in this encounter Progress Notes * Massiel Gastelum MD - 06/26/2024 11:40 AM CDT Otolaryngology Note Subjective Patient ID: Beka Nichols is a 29 y.o. male. Chief Complaint: Chief Complaint Patient presents with Post-op HPI: Beka Nichols is a 29 y.o. 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 He is followed by Dr. Gillespie in Medical Oncology and by Dr. Duncan in Infectious Disease. He is status post endoscopic sinus surgery (bilateral maxillary antrostomy, total ethmoidectomy, frontal sinusotomy, and sphenoidotomy) and septoplasty on 08/28/2022 for chronic rhinosinusitis and recurrent acute exacerbations. At the time of surgery, he was noted to have generalized edematous and friable mucosa throughout his sinuses. Septum deviated to the left, narrowing access to the middle meatus. Left middle turbinate resected. He underwent bilateral ear tube placement 04/28/2024 in the operating room. Left tube replaced and right with mucoid effusion at that time. He was treated with Augmentin times 10 days and Ciprodex eardrops 06/05/2024 for bilateral otorrheaand nasal congestion. Hearing on left okay, right muffled. Otorrhea stopped with the eardrops. Rare left ear pain. No bloody otorrhea. Patient notes persistent cough, present for several months. No improvement after ear tubes. Some improvement with the Augmentin, not resolution. Intermittent throughout the day. Wet sounding. Worse with talking, when supine. Had been awakening him from sleep - better with recent Augmentin. No saline nasal spray. No medicated nasal sprays. Nasal symptoms not significantly bothersome currently. No facial pain or headache. No thick nasal mucus. Able to breathe through his nose. Per patient, he was seen by Dr. Duncan today with no concern raised for chest/lung exam. He has follow-up with Dr. Gillespie next week. Objective Ht 170.2 cm (5' 7 ) Wt 60.1 kg (132 lb 9.6 oz) BMI 20.77 kg/m?? Physical Exam GENERAL: Well-developed, well-nourished. Voice quality is normal. NEURO/PSYCH: Cranial nerves II-XII are grossly normal. Affect is normal. Alert and oriented. EYES: Extraocular muscles are intact. HEAD/FACE: Normocephalic; atraumatic. No facial skin lesions. Facial strength is 5/5 and the face is symmetric. Bilateral parotid gland palpation revealed no masses or tenderness. EARS: External ears have no skin lesions. Hearing is grossly intact. Right: EAC clear. TM with tube in place and patent. Middle ear aerated. Left: EAC clear. TM with tube in place and patent, scant cerumen surrounding shaft of tube, lumen appears patent. Middle ear aerated. NOSE: External nose has no skin lesions. Nasal mucosa is moist. Septum is predominantly midline caudally. No mucopus visualized. See endoscopy. NECK: No masses. HEME/LYMPHATIC: No cervical lymphadenopathy. MUSCULOSKELETAL: Ambulates without difficulty. Neck full range of motion. RESPIRATORY: Breathing comfortably without audible stridor, stertor or wheeze. Procedure: Nasal Endoscopy: Due to inadequate visualization on anterior rhinoscopy, rigid nasal endoscopy was undertaken. After topical nasal decongestant and anesthetic, the flexible endoscope was introduced into the right and left nasal cavity. Clear/white mucus scattered in the right and left nasal cavities. No copious mucopus.. No significant nasal mucosal edema. 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 Maxillary antrostomies patent bilaterally, no erythema nor edema of the visualized mucosa. Nasopharynx with small dry mucus, no pooled secretions. Nasopharynx and oropharynx with cobblestoning of the posterior pharyngeal wall. Vocal cords mobile bilaterally withoutlesions or masses. Mild edema of the interarytenoid mucosa. No pooled secretions in the larynx, pharynx or hypopharynx. Piriform clear bilaterally. The exam was otherwise normal.. The endoscope was removed and the patient tolerated the procedure well. Assessment/Plan 1. Tympanostomy tube check 2. Chronic pansinusitis 3. Status post functional endoscopic sinus surgery 4. Immunocompromised (HCC) 5. Eustachian tube dysfunction, bilateral Reassurance provided regarding exam today, including fiberoptic nasal endoscopy and laryngoscopy. No clear cause of chronic cough. Recommend resuming Saline Nasal spray regularly. Discussed role in thinning nasal mucus as a possible contributor to his cough. Floxin drops to the left ear times 2-3 days . Follow-up 6 months. If [id number] sinusitis recurs, plan Levaquin rx. Recommend discussion with Dr. Gillespie next week should his cough persist with use of the saline nasal spray. Michael Gastelum MD FACS Professor Department of Otolaryngology [facility] documented in this encounter Plan of Treatment Scheduled Procedures Name Priority Associated Diagnoses Date/Ti me COLONOSCOPY Encounter for screening for colorectal cancer in high risk patient Family history of rectal cancer documented as of this encounter Visit Diagnoses Diagnosis Tympanostomy tube check- Primary Follow-up examination, following other surgery Chronic pansinusitis Other chronic sinusitis Status post functional endoscopic sinus surgery Other postprocedural status Immunocompromised (HCC) Unspecified immunity deficiency Eustachian tube dysfunction, bilateral documented in this encounter Care Teams Manager Auto Relationship Specialty Start Date End Date Unknown, Notinfile PCP - General 04/26/24 08/01/24 Amber Montesinos RN Unit Educator Transplant 11/17/19 Jil Duncan MD Consulting Physician Infectious Diseases 01/10/20 Anita Gillespie MD Medical Oncologist/Scruff Worker Medical Oncology 10/07/20 Tabitha Hurley MD [address] [place] [address] Consulting Physician Rheumatology 10/22/21 Massiel Gastelum MD [address] [place] [address] Consulting Physician Otolaryngology 08/27/22 documented as of this encounter
--- OUTSIDE RECORDS SUMMARY | 2024-10-28 06:03 | XMS_ITS | Encounter Summary ---
Author Organization [facility] Address [address] [place] [address] Care Team Providers Care Taper Operator Name Role Phone Amber Montesinos RN Unavailable [phone] Jil Duncan MD Unavailable [phone] Anita Gillespie MD Unavailable [phone] Tabitha Hurley MD Unavailable [phone] Massiel Gastelum MD Unavailable [phone] Unknown, Notinfile Primary Care Provider Unavail able Encounter Details Date Type Department Care Team (Latest Contact Info) Description 06/26/2024 9:04 AM CDT - 06/26/2024 11:59 PM CDT Hospital Encounter [address] [address] Discharge Disposition: Discharge to home or self care Social History Tobacco Use Types Packs/Day Years Used Date Smoking Tobacco: Never Smokeless Tobacco: Current Chew Comments:Chews tobacco on o ccasion Alcohol Use Standard Drinks/Week Comments Yes 0 (1 standard drink = 0.6 oz pur e alcohol) occassional OASIS D0700: Social Isolation Answer Da te Recorded Frequency of experiencing loneliness or isolatio n Never 02/29/2024 [facility] Utilities Answer Date Recorded In the past [...] any clubs o r organizations such as pentecostalism groups, unions, fraternal or athletic groups, or [...] place to sleep or slept in a longterm (including now)? No 02/23/2024 Personal Safety Answer Date Recorded Have you ever been in or are you currently in a harmful physical or emotional relationship or is someone making you feel afraid or unsafe? 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 30 tablet 02/07/2024 4 ursodioL (ACTIGALL) 300 mg capsuleIndicatio ns:Cholelithiasi [...] Scheduled Procedures Name Priority Associated Diagnoses Date/Ti in COLONOSCOPY Encounter for screening for colorectal cancer in high risk patient Family history of rectal cancer documented as of this encounter Visit Diagnoses Not on filedocumented in this encounter Care Teams Taper Operator Relationship Specialty Start Date End Date Unknown, Notinfile PCP - General 04/26/24 08/01/24 Amber Montesinos RN Hospital Cleaning Specialist Transplant 11/17/19 Jil Duncan MD Consulting Physician Infectious Diseases 01/10/20 Anita Gillespie MD Medical Oncologist/Power Sweeper Operator Medical Oncology 10/07/20 Tabitha Hurley MD [address] [place], [place] [id number] Consulting Physician Rheumatology 10/22/21 Massiel Gastelum MD [address] [place] [address] Consulting Physician Otolaryngology 08/27/22 documented as of this encounter
--- OUTSIDE RECORDS SUMMARY | 2024-10-28 06:03 | XMS_ITS | Encounter Summary ---
Author Organization [facility] Address [address] [place] [address] Phone Care Team Providers Care Sports Instructor Name Role Phone Amber Montesinos RN Unavailable [phone] Jil Duncan MD Unavailable [phone] Anita Gillespie MD Unavailable [phone] Tabitha Hurley MD Unavailable [phone] Massiel Gastelum MD Unavailable [phone] Beka Nick MD Primary Care Provider [phone] Encounter Details Date Type Department Care Team (Late st Contact Info) Description 03/10/2024 Telephone [facility] Infectious Diseases [address] [place] [address] Sherin Porras, [facility] Social History Tobacco Use Types Packs/Day Years Used Date Smoking Tobacco: Never Smokeless Tobacco: Current Chew Alcohol Use Standard Drinks/Week Comments Yes 0 (1 standard drink = 0.6 oz pur e alcohol) occassional OASIS D0700: Social Isolation Answer Da te Recorded Frequency of experiencing loneliness or isolatio n Never 02/29/2024 [facility] Utilities Answer Date Recorded In the past [...] often do you attend chur ch or jewish services? 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 There are misunderstanding the mom says. documented in this encounter Plan of Treatment Scheduled Procedures Name Priority Associated Diagnoses Date/Ti me COLONOSCOPY Encounter for screening for colorectal cancer in high risk patient Family history of rectal cancer documented as of this encounter Visit Diagnoses Not on filedocumented in this encounter Care Teams Sports Instructor Relationship Specialty Start Date End Date Beka Nick MD [address] [place] [address] PCP - General Family Practice 05/31/23 04/25/24 Amber Montesinos, RN Conference Organizer Transplant 11/17/19 Jil Duncan MD Consulting Physician Infectious Diseases 01/10/20 Anita Gillespie MD Medical Oncologist/Contracts Intern Medical Oncology 10/07/20 Tabitha Hurley MD [address] [place] [address] Consulting Physician Rheumatology 10/22/21 Massiel Gastelum MD [address] [place] [address] Consulting Physician Otolaryngology 08/27/22 documented as of this encounter
--- OUTSIDE RECORDS SUMMARY | 2024-10-28 06:03 | XMS_ITS | Encounter Summary ---
Author Organization [facility] Address [address] [place] [address] Phone Care Team Providers Care Facility Service Manager Name Role Phone Amber Montesinos RN Unavailable [phone] Jil Duncan MD Unavailable [phone] Anita Gillespie MD Unavailable [phone] Tabitha Hurley MD Unavailable [phone] Massiel Gastelum MD Unavailable [phone] Unknown, Notinfile Primary Care Provider Unavail able Reason for Visit * Reason Onset Date Comments Appointment 04/26/2024 Encounter Details Date Type Department Care Team (Late st Contact Info) Description 04/26/2024 Documentation [facility] Oncology [address] [facility] 7th [place] [address] [place] [id number] Mary Reno RMA Appointment Social History Tobacco Use Types Packs/Day Years Used Date Smoking Tobacco: Never Smokeless Tobacco: Current Chew Comments:Chews tobacco on o ccasion Alcohol Use Standard Drinks/Week Comments Yes 0 (1 standard drink = 0.6 oz pur e alcohol) occassional OASIS D0700: Social Isolation Answer Da te Recorded Frequency of experiencing loneliness or isolatio n Never 02/29/[address] [facility] Utilities Answer Date Recorded In the past 12 months has th e [employer], gas, oil, or water company threatened to [...] any clubs o r organizations such as christian groups, unions, fraternal or athletic groups, or school groups? No 02/23/2024 How often do you attend meet ings of the clubs or organizations you belong to? Never 02/23/2024 Are you , , di vorced, , never , or living with a partner? Never 02/23/2024 [employer] Answer Date Recorded Q1: How often do you have a drink containing alc ohol? 2-4 times a month 04/24/2024 Q2: How many drinks containi ng alcohol do you have on a typical day when you are drinking? 1 or 2 04/24/2024 Q3: How often do you have si x or more drinks on one occasion? 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 ===View-only below this line=== ----- Message ----- From: Yulisa Bhakta RN Sent: 04/26/2024 11:05 AM CDT To: [facility] Can you r/s pts 05/03 appointments to be 07/05, labs at 7am, Dr. Gillsepie at 9am. Thanks! Pt is alreadyaware documented in this encounter Plan of Treatment Scheduled Procedures Name Priority Associated Diagnoses Date/Ti me COLONOSCOPY Encounter for screening for colorectal cancer in high risk patient Family history of rectal cancer documented as of this encounter Visit Diagnoses Not on filedocumented in this encounter Care Teams Facility Service Manager Relationship Specialty Start Date End Date Unknown, Notinfile PCP - General 04/26/24 08/01/24 Amber Montesinos, SHAILESH Player Development Executive Transplant 11/17/19 Jil Duncan MD Consulting Physician Infectious Diseases 01/10/20 Anita Gillespie MD Medical Oncologist/Production Repairer Medical Oncology 10/07/20 Tabitha Hurley MD [address] [facility] [address] [place], [place] [address] Consulting Physician Rheumatology 10/22/21 Massiel Gastelum MD [address] [place] [address] Consulting Physician Otolaryngology 08/27/22 documented as of this encounter
--- OUTSIDE RECORDS SUMMARY | 2024-10-28 06:03 | XMS_ITS | Encounter Summary ---
Author Organization [facility] Address [address] [place] [address] Phone Care Team Providers Care Dairy Nutrition Specialist Name Role Phone Amber Montesinos RN Unavailable [phone] Jil Duncan MD Unavailable [phone] Anita Gillespie MD Unavailable [phone] Tabitha Hurley MD Unavailable [phone] Massiel Gastelum MD Unavailable Guero Gabriel DO Primary Care Provider [phone] Encounter Details Date Type Department Care Team (Late st Contact Info) Description 08/02/2024 7:45 AM CDT Office Visit 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 1 to 4 times per year 02/23/2024 Do you belong to any clubs o r organizations such as mosque groups, unions, fraternal or athletic groups, or [...] place to sleep or slept in a care home (including now)? No 02/23/2024 Personal Safety Answer Date Recorded Have you ever been in or are you currently in a harmful physical or emotional relationship or is someone making you feel afraid or unsafe? 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 Gender Identity Not on file Sexual Orientation Straight 08/22/2021 9: 23 AM CDT documented as of this encounter Last Filed Vital Signs Vital Sign Reading Time Taken Comments Blood Pressure 107/69 08/02/2024 7:37 AM CDT Pulse 82 08/02/2024 7:37 AM CDT Temperature 36.3 ??C (97.4 ??F) 08/02/2024 7:37 AM CD T Respiratory Rate 18 08/02/2024 7:37 AM CDT Oxygen Saturation 99% 08/02/2024 7:37 AM CDT Inhaled Oxygen Concentration - - Weight 63 kg (138 lb 12.8 oz) 08/02/2024 7:37 AM CDT Height - - Body Mass Index 21.74 06/26/2024 11:33 AM CDT documented in this encounter Ordered Prescriptions Prescription Sig Dispense Quantity Refills Last Filled Start Date End Date albuterol HFA (PROVENTIL HFA,VENTOLIN HFA,PROAIR HFA) 90 mcg/actuation inhaler Inhale 2 puffs q 6h PRN cough, shortness of breath, or wheezing 1 each 1 08/02/2024 fluticasone propion-salmeteroL (ADVAIR DISKUS) 100-50 mcg/dose diskus inhaler Inhale 1 puff 2 (two) times a day Rinse mouth with water after use. Do not swallow. 1 each 1 08/02/2024 4 documented in this encounter Progress Notes * Emili Jones, NUTRITIONIST - 08/02/2024 12:00 AM CDT PATIENT NAME: ADI NICHOLS : 1995 JUSTEN: 08/02/2024 DIAGNOSES: 1. 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 2. 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 3. Bilateral pulmonary emboli diagnosed on 10/19/2017. TREATMENT AND DISEASE COURSE: 1. R-CHOP x 1, 08/25/2017. 2. Dose adjusted EPOCH-R x 5, 09/15/2017 to December 2017. Post-C2 PET: IA (5PS = 4), CR post C5 3. IT chemotherapy (MTX), only with cycle 3 on 10/06/2017, complicated by intracranial hypotension. 4. R cervical LNBx, 01/06/2019, EBV+ florid follicular hyperplasia, c/w possible early PTLD. 5. Biopsy of 2.7 cm hyperenhancing lesion in liver on 02/02/2020, demonstrated necrosis and chronicinflammation. Repeat MRI with slight decrease in size. CT scan of liver 04/05/2020 with continued decrease in size of his liver. 6. Liver biopsy, 05/14/2020, T-cell predominant inflammatory infiltration without evidence of B or T-cell lymphoma. 7. Repeat liver biopsy, 08/31/2022, findings consistent with CVID . 8. EUS with liver biopsy of LNBx during hospitalization for new ascites/LE edema, 08/27/2023, no PTLD, node + for CMV, liver biopsy with cholestasis and mild fibrosis. INTERVAL HISTORY: Adi returns to [facility] for continued follow-up of his history of PTLD. He was lastseen 11/03/2023. Since that time, he again has had an eventful course. He was seen by Infectious Disease at the end of November for CMV viremia management and presented with persistent cough. Chest x-ray at that time showed a new right mid lung wedge opacity favoring infection such as pneumonia versus PE. Subsequent chest CT with PE protocol on 12/03/2023 showed right lower lobe bacterial lobar pneumonia and was treated with a 7-day course of Augmentin and doxycycline. Follow-up chest x-ray on 01/04 showed significant improvement; however, he presented to the ER on 02/17 with fever, persistent cou gh, headache, and congestion. Initial workup was positive for rhinovirus and chest x-ray showed right-sided pneumonia with subsequent chest CT that showed left lower lobe cavitary pneumonia and pleural effusion. He was diagnosed with MSSA bacteremia and was in septic shock that required Levophed for less than 24 hours and oxygen support but not intubated. He was discharged home on 02/24 with a PICC and received a 6-week course of IV Ancef with interim transition to dalbavancin on 03/14. Follow-upwith ID on 03/20 revealed negative chest x-ray. Currently, he is symptomatically improved except forresidual chronic cough. He is currently on Claritin per ENT but has had no trial of inhalers. He has seen on ENT in the interim and underwent bilateral tube placement in April for chronic bilateral otitis media with effusion. He reports his hearing as muffled and is scheduled to see Audiology later today to evaluate hearing loss. He did have laryngoscopic examination by ENT on 06/26, which showed no etiology for his cough and nasal saline spray was recommended. He was also treated by ENT in the in [facility] on at least 2 occasions for persistent/chronic sinusitis, including treatment with Augmentin in December then Levaquin with steroid taper in January. He otherwise had no symptoms concerning for recurrent lymphoma and denies new adenopathy, chest pain, abdominal pain or bloating, drenching night sweats, lower extremity edema our unintentional weight loss. PHYSICAL EXAM: General: Well-appearing young gentleman in no acute distress and is accompanied by his mother. Performance Status: 1. Vital Signs: Weight 63 kg, up from 61.1 kg. Blood pressure 107/69, pulse 82, temp 36.3, O2 sat 99%. HEENT: Gross EOMI. Sclerae anicteric. Bilateral tympanostomy tubes intact. Oropharynx clear. CV: HR RRR, without murmur. Lungs: Faint right lower lobe basilar wheeze that cleared post-tussively, otherwise clear. +cough. Nodes: There are no palpable enlarged preauricular, postauricular, submandibular, submental, cervical, supraclavicular, infraclavicular, axillary, inguinal lymph nodes. Abdomen: Soft, nontender, nondistended. No hepatosplenomegaly. Extremities: No edema. Skin: Without suspicious rashes or lesions. LABORATORY DATA: WBC 5.4, hemoglobin 12.9, hematocrit 38, platelets 263, ANC 1.0, ALC 1.7. CMP remarkable for chronically elevated alk phos 261 with normal total bili 1.1, AST 32, and ALT 22. LDH 260, which is chronically elevated and down trending from 387. IMPRESSION AND PLAN: 1. History of c-MYC positive posttransplant lymphoproliferative disorder, EBV positive, stage EMY, IPI 3. 29-year-old gentleman who is over 6-1/2 years status post 1 cycle of R-CHOP and 5 cycles of dose adjusted EPOCH-R. He has no evidence of recurrent disease based on physical exam today. Chest CTduring his hospitalization for MSSA bacteremia and pneumonia showed mediastinal lymphadenopathy with an enlarged subcarinal lymph node favoring reactive and stable in size measuring 2.3 cm. Of note, he has had lymph node biopsies in the past that were reactive in nature and positive for CMV. We will continue to follow him expectantly and see him back in 6 months. 2. Recurrent sinus infections. He continues regular follow-up with ENT and has had at least 2 sinusinfections in the interim requiring treatment with Augmentin, Levaquin, and steroid taper. He is currently on Claritin and saline nasal spray was recommended at his most recent office visit in June. 3. Chronic cough. He is currently not on any inhalers. Clinically, he looks good. We recommended a trial of Advair b.i.d. and albuterol inhaler as needed. We will check in with him in 1 week to see if this has helped. Of note, he has had prior bronchoscopy in 2017 but declines referral to Pulmonology at this time. ADDENDUM: chest x-ray showed new patchy airspace opacities in the left lower lobe, favoring aspiration or pneumonia and 4 to 6 week follow-up was recommended. He was prescribed a course 7-day course of Augmentin by Transplant team. 4. Common variable immunodeficiency. He remains on Hyqvia and will continue this indefinitely. His IgG level today is 673, up from 502 in March. 5. 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 His most recent CMV PCR was 104 in June. His valganciclovir was decreased from 900 b.i.d. to 450 mg b.i.d. and continues letermovir 240 mg daily. 6. History of liver transplant. He underwent liver biopsy a year ago, which showed mild fibrosis and evidence of cholestasis. He continues tacrolimus. 7. Healthcare maintenance. He is up-to-date on pneumonia vaccination with Prevnar 20. This patient was seen with Dr. Anita Gillespie who agreed with plan. ELECTRONICALLY SIGNED - 08/06/2024 07:17 PM ANDERS Mota Nurse Practitioner In collaboration with Anita Gillespie M.D. My signature confirms I have reviewed the note and agree with the assessment and plan of ANDERS Mota ELECTRONICALLY SIGNED - 08/06/2024 07:27 PM Anita Gillespie M.D. pit inspector [facility] Chair in Medical Oncology SMT/SREEDHAR/gricelda cc: LENO AGUSTIN MD [address] [facility] [address], [place] [address] GUERO GABRIEL DO [address] [place] [address] / JIL DUNCAN M.D. 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) Expected: 2025, Expires: 07/31/2025 Scheduled Procedures Name Priority Associated Diagnoses Date/Ti me COLONOSCOPY Encounter for screening for colorectal cancer in high risk patient Family history of rectal cancer documented as of this encounter Visit Diagnoses Diagnosis 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 documented in this encounter Orders Appointment Requests Count Last Ordered Date Fi rst Ordered Date ONCBCN CLINIC APPOINTMENT REQUEST 1 024 ONCBCN LAB APPOINTMENT 1 08/02/2024 documented in this encounter Care Teams Dairy Nutrition Specialist Relationship Specialty Start Date End Date Guero Gabriel DO [address] [place], [place] [id number] PCP - General Internal Medicine 08/02/24 Amber Montesinos, SHAILESH Stator Tester Transplant 11/17/19 Jil Duncan MD Consulting Physician Infectious Diseases 01/10/20 Anita Gillespie MD Medical Oncologist/Linen Grader Medical Oncology 10/07/20 Tabitha Hurley MD [address] [place] [address] Consulting Physician Rheumatology 10/22/21 Massiel Gastelum MD [address] [place] [address] Consulting Physician Otolaryngology 08/27/22 documented as of this encounter
--- OUTSIDE RECORDS SUMMARY | 2024-10-28 06:03 | XMS_ITS | Encounter Summary ---
Author Organization [facility] Healthcare Address [address] [place] [address] Care Team Providers Care Can Repairer Name Role Phone Amber Montesinos RN Unavailable [phone] Jil Duncan MD Unavailable [phone] Anita Gillespie MD Unavailable [phone] Tabitha Hurley MD Unavailable [phone] Massiel Gastelum MD Unavailable [phone] Beka Nick MD Primary Care Provider [phone] Encounter Details Date Type Department Care Team (Late st Contact Info) Description 03/30/2024 Home Care Visit [facility] [address] [address] [address] [place] [address] Astrid Sauceda RN SN NON OASIS DISCHARGE Social History Tobacco Use Types Packs/Day Years Used Date Smoking Tobacco: Never Smokeless Tobacco: Current Chew Alcohol Use Standard Drinks/Week Comments Yes 0 (1 standard drink = 0.6 oz pur e alcohol) occassional OASIS D0700: Social Isolation Answer Da te Recorded Frequency of experiencing loneliness or isolatio n Never 02/29/2024 [facility] Utilities Answer Date Recorded In the [...] often do you attend chur ch or anglican services? 1 to 4 times per year 02/23/2024 Do you belong to any clubs o r organizations such as anabaptist groups, unions, fraternal or athletic groups, or [...] place to sleep or slept in a long-term (including now)? No 02/23/2024 Personal Safety Answer Date Recorded Have you ever been in or are you currently in a harmful physical or emotional relationship or is someone making you feel afraid or unsafe? 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 Gender Identity Not on file Sexual Orientation Straight 08/22/2021 9: 23 AM CDT documented as of this encounter Plan of Treatment Scheduled Procedures Name Priority Associated Diagnoses Date/Ti me COLONOSCOPY Encounter for screening for colorectal cancer in high risk patient Family history of rectal cancer documented as of this encounter Visit Diagnoses Not on filedocumented in this encounter Home Health Visit - Care Plan Visit Details Visit Type -SN Non-OASIS Dis charge Discipline -Senior Care Problems Problem Description Start Date Status Goals Interventions Medications Disciplines: Senior Care Management of IV Medications 02/29/2024 Active - 1 problem intervention scheduled/documen mohsen in this visit Safety concerns Disciplines: Senior Care Safety needs related to infusion administration 02/29/2024 Active - 1 problem intervention scheduled/documen mohsen in this visit IV Therapy-Manageme nt, Education, and Maintenance Disciplines: Senior Care IV Management, education, and maintenance for home IV therapy. 02/29/2024 Active - 2 problem interventions scheduled/documen mohsen in this visit Infection Prevention Disciplines: Skilled Disciplines Infection Prevention 02/29/2024 Active 1 goal linked to scheduled/docume nted intervention 1 goal intervention scheduled/documen mohsen in this visit Safety concerns [...] Intervention Associated Problem/Goal Status Variance Visit Notes Instruct on Medication Management Description: Instruct patient/caregiver in medication administration, purpose, dosages, preparation, scheduling, side effects, food/drug interactions, storage, drug allergies, and potential complications. Medications instructed on: Cefazolin. Problem:Medications Scheduled Instruct on IV complications Description: Instruct patient/caregiver on how to manage breaks in line, signs/symptoms of complications, who to contact for complications and how to contact the nurse, MD and infusion service Problem:Safety concerns Scheduled PICC Line Description: PICC Line with 1 [...] line arm. Problem:IV Therapy-Management, Education, and Maintenance Scheduled IV Management and Education Description: Instruct patient/caregiver [...] of infection. Problem:IV Therapy-Management, Education, and Maintenance Scheduled Educate Family on Infection Prevention Description: Instructed family on signs and symptoms of infection IE: fever, odor, change in color, increased amount of drainage, purulent drainage, warmth. Problem:Infection Prevention Goal:Verbalize signs of infection Scheduled Assess safety Description: Assess patient safety Problem:Safety concerns Goal:Demonstrate use of safety precautions Scheduled documented in this encounter Care Teams Can Repairer Relationship Specialty Start Date End Date Beka Nick MD [address] [place] [address] PCP - General Family Practice 05/31/23 04/25/24 Amber Montesinos, SHAILESH Marine Consultant Transplant 11/17/19 Jil Duncan MD Consulting Physician Infectious Diseases 01/10/20 Anita Gillespie MD Medical Oncologist/Cook Boat Medical Oncology 10/07/20 Tabitha Hurley MD [address] [place], [place] [id number] Consulting Physician Rheumatology 10/22/21 Massiel Gastelum MD [address] [place] [address] Consulting Physician Otolaryngology 08/27/22 documented as of this encounter
--- OUTSIDE RECORDS SUMMARY | 2024-10-28 06:03 | XMS_ITS | Encounter Summary ---
Author Organization [facility] Healthcare Address [address] [place] [address] Care Team Providers Care Cyber Defense Analyst Name Role Phone Amber Montesinos RN Unavailable [phone] Jil Duncan MD Unavailable [phone] Anita Gillespie MD Unavailable [phone] Tabitha Hurley MD Unavailable [phone] Massiel Gastelum MD Unavailable [phone] Beka Nick MD Primary Care Provider [phone] Encounter Details Date Type Department Care Team (Late st Contact Info) Description 03/14/[address] [facility] Home Care Services [address] [place] [address] Melony Jerome, [facility] Social History Tobacco Use Types Packs/Day Years [...] place to sleep or slept in a penitentiary (including now)? No 02/23/2024 Personal Safety Answer Date Recorded Have you ever been in or are you currently in a harmful physical or emotional relationship or is someone making you feel afraid or unsafe? 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 Infuse Dalvance 1500 mg in D5 500 mL IV over 30 minutes via rate flow or pump. Repeat Dalvance in 2 weeks to complete therapy. 2 Doses. Remove PICC after use. Use PIV Line per protocol for further infusions. 1 SNV every week for 9 weeks for patient assessment, teaching, IV catheter care, lab work. 6 PRN visits for additional teaching, line care, labs or other symptom management. documented in this encounter Plan of Treatment Scheduled Procedures Name Priority Associated Diagnoses Date/Ti oh COLONOSCOPY Encounter for screening for colorectal cancer in high risk patient Family history of rectal cancer documented as of this encounter Visit Diagnoses Not on filedocumented in this encounter Care Teams Cyber Defense Analyst Relationship Specialty Start Date End Date Beka Nick MD [address] [place] [address] PCP - General Family Practice 05/31/23 04/25/24 Amber Montesinos, SHAILESH Confectionery Maker Transplant 11/17/19 Jil Duncan MD Consulting Physician Infectious Diseases 01/10/20 Anita Gillespie MD Medical Oncologist/Eligibility Specialist Medical Oncology 10/07/20 Tabitha Hurley MD [address] [facility] [address] [place] [address] Consulting Physician Rheumatology 10/22/21 Massiel Gastelum MD [address] [place] [address] Consulting Physician Otolaryngology 08/27/22 documented as of this encounter
--- OUTSIDE RECORDS SUMMARY | 2024-10-28 06:03 | XMS_ITS | Encounter Summary ---
Author Organization [facility] Healthcare Address [address] [place] [address] Care Team Providers Care Haul Cane Brakeman Name Role Phone Amber Montesinos RN Unavailable [phone] Jil Duncan MD Unavailable [phone] Anita Gillespie MD Unavailable [phone] Tabitha Hurley MD Unavailable [phone] Massiel Gastelum MD Unavailable Beka Nick MD Primary Care Provider [phone] Reason for Visit * Reason Onset Date Comments OPAT 03/10/2024 Encounter Details Date Type Department Care Team (Late st Contact Info) Description 03/10/2024 Documentation [facility] Isolation Infection [address] [place] [address] La Baxter, COMPLIANCE REVIEWER [address] [place] [address] OPAT Social History Tobacco Use Types Packs/Day Years Used Date Smoking Tobacco: Never Smokeless Tobacco: Current Chew Alcohol Use Standard Drinks/Week Comments Yes 0 (1 standard drink = 0.6 oz pur e alcohol) occassional OASIS D0700: Social Isolation Answer Da te Recorded Frequency of experiencing loneliness or isolatio n Never 02/29/2024 [facility] Utilities Answer Date Recorded In the past [...] any clubs o r organizations such as holiness groups, unions, fraternal or athletic groups, or [...] on file 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 Discussed with Dr. Duncan. Will plan to change Cefazolin to Dalbavancin. PICC will be removed after 1st dose of Dalba and will repeat Dalba dose in 2 wks to complete tx. Plan discussed with pt who is in agreement. documented in this encounter Plan of Treatment Scheduled Procedures Name Priority Associated Diagnoses Date/Ti mn COLONOSCOPY Encounter for screening for colorectal cancer in high risk patient Family history of rectal cancer documented as of this encounter Visit Diagnoses Not on filedocumented in this encounter Care Teams Haul Cane Brakeman Relationship Specialty Start Date End Date Beka Nick MD [address] [place] [address] PCP - General Family Practice 05/31/23 04/25/24 Amber Montesinos RN Global Marketing Coordinator Transplant 11/17/19 Jil Duncan MD Consulting Physician Infectious Diseases 01/10/20 Anita Gillespie MD Medical Oncologist/Manager Custom Medical Oncology 10/07/20 Tabitha Hurley MD [address] [place] [address] Consulting Physician Rheumatology 10/22/21 Massiel Gastelum MD [address] [place] [address] Consulting Physician Otolaryngology 08/27/22 documented as of this encounter
--- OUTSIDE RECORDS SUMMARY | 2024-10-28 06:03 | XMS_ITS | Encounter Summary ---
Author Organization [facility] Address [address] [place] [address] Care Team Providers Care Semiconductor Wafers Saw Operator Name Role Phone Amber Montesinos RN Unavailable [phone] Jil Duncan MD Unavailable [phone] Anita Gillespie MD Unavailable [phone] Tabitha Hurley MD Unavailable [phone] Massiel Gastelum MD Unavailable [phone] Beka Nick MD Primary Care Provider [phone] Encounter Details Date Type Department Care Team (Latest Contact Info) Description 03/20/2024 11:07 AM CDT - 03/20/2024 11:59 PM CDT Hospital Encounter [facility] [address] [place] [phone] 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HCC); Hypogammaglobulinemia (HCC) Discharge Disposition: Discharge to home or self care Social History Tobacco Use Types Packs/Day Years Used Date Smoking Tobacco: Never Smokeless Tobacco: Current Chew Alcohol Use Standard Drinks/Week Comments Yes 0 (1 standard drink = 0.6 oz pur e alcohol) occassional OASIS D0700: Social Isolation Answer Da te Recorded Frequency of experiencing loneliness or isolatio n Never 02/29/2024 [facility] Utilities Answer Date Recorded In the past 12 months has th e electric, gas, oil, or water [employer] threatened to shut off services in your [...] any clubs o r organizations such as religious groups, unions, fraternal or athletic groups, or [...] place to sleep or slept in a fpc (including now)? No 02/23/2024 Personal Safety Answer Date Recorded Have you ever been in or are you currently in a harmful physical or emotional relationship or is someone making you feel afraid or unsafe? 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 Gender Identity Not on file Sexual Orientation [...] other day 45 capsule 3 01/03/2024 5 letermovir (PREVYMIS) 480 mg tabletIndication s:Prophylaxis, Medical Take 1 tablet (480 mg total) by mouth daily 30 tablet 5 09/28/2023 4 furosemide (LASIX) 20 mg tablet Take [...] Scheduled Procedures Name Priority Associated Diagnoses Date/Ti ok COLONOSCOPY Encounter for screening for colorectal cancer in high risk patient Family history of rectal cancer documented as of this encounter Procedures Procedure Name Priority Date/Time Associated Diagnosis Comments GLUCOSE, RANDOM (OUTREACH) Routine 03/20/2024 11:35 AM CDT 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HCC) CYTOMEGALOVIRUS (CMV) DNA, QUANT GEN LAB Routine 03/20/2024 11:21 AM CDT 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HCC) EGFR Routine 03/20/2024 11:21 AM CDT 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HCC) COMPREHENSIVE METABOLIC PANEL WITHOUT GLUCOSE (OUTREACH) Routine 03/20/2024 11:21 AM CDT 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HCC) COMPREHENSIVE METABOLIC PANEL (OUTREACH) Routine 03/20/2024 11:21 AM CDT 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HCC) CBC WITH AUTO DIFFERENTIAL Routine 03/20/2024 11:21 AM CDT 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HCC) MANUAL DIFFERENTIAL Routine 03/20/2024 1 1:21 AM CDT 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HCC) IGG Routine 03/20/2024 11:21 AM CDT Hypogammaglobuline justine (HCC) documented in this encounter Results * Glucose, random (Outreach) (03/20/2024 11:35 AM CDT) Glucose 94 70 - 199 mg/dL Comment: Interpretive Data [...] interpretive data was last revised 2022. Blood 03/20/2024 11:3 5 AM CDT 03/20/2024 11:44 AM CDT us Lisandra Auguste NP LAB BLOOD ORDERABLES Chata cuadra Result [facility] [place] [address] * eGFR (03/20/2024 11:21 AM CDT) eGFR 71 >=60 mL/min/1. 73 m2 Comment: Interpretive Data [...] interpretive data was last reviewed 2021. Blood 03/20/2024 11:2 1 AM CDT 03/20/2024 12:22 PM CDT us Lisandra Auguste DESIGN PRINTER [employer] LAB BLOOD ORDERABLES Chata cuadra Result [facility] Department [place] [address] * (ABNORMAL) Manual Differential (03/20/2024 11:21 AM CDT) Cells Counted 100 Comment:Testing performed by : [facility], [address] [place] [phone] Neutrophil abs 1.9 1.5 - 6.5 K/cumm [facility] Comment:Testing performed by : [facility], [address] [place] [phone] Imm gran abs 0.0 0.0 - 0.1 K/cumm [facility] Comment:Testing performed by : [facility], [address] [place] [phone] Lymphocyte abs 1.4 0.8 - 3.3 K/cumm [facility] Comment:Testing performed by : [facility], [address] [place] [phone] Monocyte abs 0.9(H) 0.2 - 0.8 K/cumm [facility] Comment:Testing performed by : [facility], [address] [place] [phone] Eosinophil abs 0.0 0.0 - 0.5 K/cumm [facility] Comment:Testing performed by : [facility], [address] [place] [phone] Basophil abs 0.0 0.0 - 0.1 K/cumm [facility] Comment:Testing performed by : [facility], [address] [place] [phone] Neutrophil pct 42.0 % [facility] Comment:Testing performed by : [facility], [address] [place] [phone] Lymphocyte pct 32.0 % [facility] Comment:Testing performed by : [facility], [address] [place] [phone] Monocyte pct 21.0 % [facility] Comment:Testing performed by : [facility], [address] [place] [phone] Eosinophil pct 1.0 % [facility] Comment:Testing performed by : [facility], [address] [place] [phone] Basophil pct 1.0 % [facility] Comment:Testing performed by : [facility], [address] [place] [phone] Band Neutrophil pct 2.0 0.0 - 6.0 % [facility] Comment:Testing performed by : [facility], [address] [place] [phone] Metamyelocyte pct 1.0(H) 0.0 - 0.0 % [facility] Comment:Testing performed by : [facility], [address] [place] [phone] Myelocyte pct 0.0 0.0 - 0.0 % [facility] Comment:Testing performed by : [facility], [address] [place] [phone] Promyelocyte pct 0.0 0.0 - 0.0 % [facility] Comment:Testing performed by : [facility], [address] [place] [phone] Variant lymph pct 0.0 0.0 - 0.0 % [facility] Comment:Testing performed by : [facility], [address] [place] [phone] Toxic granulation Present(A) [facility] Comment:Testing performed by : [facility], [address] [place] [phone] Dohle bodies Present(A) [facility] Comment:Testing performed by : [facility], [address] [place] [phone] Hypochromasia 3-7/HPF(A) [facility] Comment:Testing performed by : [facility], [address] [place] [phone] Anisocytosis Slight(A) [facility] Comment:Testing performed by : [facility], [address] [place] [phone] Poikilocytosis Slight(A) [facility] Comment:Testing performed by : [facility], [address] [place] [phone] Microcytes 3-7/HPF(A) [facility] Comment:Testing performed by : [facility], [address] [place] [phone] Macrocytes 3-7/HPF(A) [facility] Comment:Testing performed by : [facility], [address] [place] [phone] Elliptocytes 3-7/HPF(A) [facility] Comment:Testing performed by : [facility], [address] [place] [phone] Target cells 3-7/HPF(A) [facility] Comment:Testing performed by : [facility], [address] [place] [phone] Teardrop cells 3-7/HPF(A) [facility] Comment:Testing performed by : [facility], [address] [place] [phone] Montero-Beaver bodies Present(A) [facility] Comment:Testing performed by : [facility], [address] [place] [phone] Platelet estimate Adequate [facility] Comment:Testing performed by : [facility], [address] [place] [phone] Blood 03/20/2024 11:2 1 AM CDT 03/20/2024 11:23 AM CDT us Lisandra Auguste DESIGN PRINTER [employer] LAB BLOOD ORDERABLES Chata l Result [facility] One [facility] Department [place] [address] * (ABNORMAL) Comprehensive metabolic panel, without glucose (Outreach) (03/20/2024 11:21 AM CDT) Sodium 139 135 - 145 mmol/L Potassium, pl 4.7 3.3 - 4.9 mmol/L [facility] Chloride 112(H) 97 - 110 mmol/L [facility] CO2 19(L) 22 - 32 mmol/L [facility] Anion gap 8 2 - 15 mmol/L [facility] BUN 22 6 - 25 mg/dL [facility] Creatinine 1.36(H) 0.80 - 1.30 mg/dL [facility] Calcium 9.3 8.5 - 10.3 mg/dL [facility] Protein, pl 6.1(L) 6.5 - 8.5 g/dL [facility] Albumin 3.6 3.5 - 5.0 g/dL [facility] Bilirubin, total 1.7(H) 0.1 - 1.2 mg/dL [facility] Alk phos 243(H) 40 - 130 Units/L [facility] AST 47 10 - 50 Units/L [facility] ALT 26 7 - 55 Units/L [facility] Blood 03/20/2024 11:2 1 AM CDT 03/20/2024 12:15 PM CDT us Lisandra Auguste DESIGN PRINTER [employer] LAB BLOOD ORDERABLES Chata l Result Performing Organization Address City/[facility]/ZIP Co de Phone Number [facility] Department [place] [address] * (ABNORMAL) IgG (03/20/2024 11:21 AM CDT) [facility] Immunoglobulin G 502(L) 700 - 1,600 mg/dL Blood 03/20/2024 11:2 1 AM CDT 03/20/2024 12:15 PM CDT us Anita Gillespie MD LAB BLOOD ORDERABLES Final Result [facility] Department [place] [address] * (ABNORMAL) Cytomegalovirus (CMV) DNA PCR, quantitative Blood (03/20/2024 11:21 AM CDT) [facility] CMV DNA Detected( A) [facility] Comment: Interpretive Data: The quantifiable range of this assay is 34 IUnits/mL to 10,000,000 IUnits/mL (1.53 log IUnits/mL to 7.0 log IUnits/mL). Testing was performed by the NIA 6800 CMV Test ([employer] Testing performed at [facility]. Current interpretive data was last revised on 2021. CMV DNA IU/mL 100 IUnits/mL [facility] CMV DNA log IU/mL 2.00 log IUnits/mL [facility] Blood 03/20/2024 11:2 1 AM CDT 03/20/2024 12:24 PM CDT us Lisandra Auguste DESIGN PRINTER [employer] LAB MICROBIOLOGY - GENERA L ORDERABLES Final Result [facility] Department [place] [address] [facility] * (ABNORMAL) CBC with auto differential (03/20/2024 11:21 AM CDT) WBC 4.4 3.8 - 9.8 K/cumm Comment:Testing performed by : [facility], [address] [place] [phone] Hgb 13.4(L) 13.8 - 17.2 g/dL [facility] Comment:Testing performed by : [facility], [address] [place] [phone] Hct 39.1(L) 40.7 - 50.3 % [facility] Comment:Testing performed by : [facility], [address] [place] [phone] Plt 206 140 - 440 K/cumm [facility] Comment:Testing performed by : [address] [phone] MPV 8.7 6.8 - 10.[address] [facility] Comment:Testing performed by : [address] [phone] RBC 3.37(L) 4.50 - 5.70 M/cumm [facility] Comment:Testing performed by : [address] [phone] MCV 116.0(H) 80.0 - 97.6 fL [facility] Comment:Testing performed by : [facility] [address] MCH 39.8(H) 26.7 - 33.7 pg [facility] Comment:Testing performed by : [facility], [address] [place] [phone] MCHC 34.3 32.7 - 35.5 g/dL [facility] Comment:Testing performed by : [facility], [address] [place] [phone] RDW CV 17.8(H) 11.8 - 14.6 % [facility] Comment:Testing performed by : [facility], [address] [place] [phone] NRBC abs 0.00 0.00 - 0.01 K/cumm 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 Hypogammaglobulinemia (HCC) Unspecified hypogammaglobulinemia documented in this encounter Care Teams Semiconductor Wafers Saw Operator Relationship Specialty Start Date End Date Beka Nick MD [address] [place] [address] PCP - General Family Practice 05/31/23 04/25/24 Amber Montesinos, SHAILESH Customer Contact Specialist Transplant 11/17/19 Jil Duncan MD Consulting Physician Infectious Diseases 01/10/20 Anita Gillespie MD Medical Oncologist/Stamp Pad Finisher Medical Oncology 10/07/20 Tabitha Hurley MD [address] [facility] [address] [place], [place] [id number] Consulting Physician Rheumatology 10/22/21 Massiel Gastelum MD [address] [place], [place] [id number] Consulting Physician Otolaryngology 08/27/22 documented as of this encounter
--- OUTSIDE RECORDS SUMMARY | 2024-10-28 06:03 | XMS_ITS | Encounter Summary ---
Author Organization [facility] Address [address] [place] [address] Phone Care Team Providers Care Biofuels Plant Operations Engineer Name Role Phone Amber Montesinos RN Unavailable [phone] Jil Duncan MD Unavailable [phone] Anita Gillespie MD Unavailable [phone] Tabitha Hurley MD Unavailable [phone] Massiel Gastelum MD Unavailable [phone] Beka Nick MD Primary Care Provider [phone] Reason for Visit * Reason Onset Date Comments opat 03/16/2024 Encounter Details Date Type Department Care Team (Late st Contact Info) Description 03/16/2024 Telephone [facility] Infectious Diseases [address] [place] [phone] Ny Griffin opat Social History Tobacco Use Types Packs/Day Years Used Date Smoking Tobacco: Never Smokeless Tobacco: Current Chew Alcohol Use Standard Drinks/Week Comments Yes 0 (1 standard drink = 0.6 oz pur e alcohol) occassional OASIS D0700: Social Isolation Answer Da te Recorded Frequency of experiencing loneliness or isolatio n Never 02/29/2024 [facility] Utilities Answer Date Recorded In the past 12 months has [employer], gas, oil, or water company threatened to [...] often do you attend chur ch or methodist services? 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 Dx: Bacteremia - MSSA Abx: Cefazolin , changed to [place] Labs: CBC with diff and CMP Imaging: none Access: PICC FYI: Events: Labs: Date WBC ANC Eos Plt SCr AST/ALT 02/28 9.7 2.2 0.3 148 0.78 48/14 03/07/24 5.2 1.2 0.2 161 1.10 39/11 Assessment/Plan: 03/01/24 - no change in abx plan -03/16/24: labs reviewed Time spent: 10 minutes documented in this encounter Plan of Treatment Scheduled Procedures Name Priority Associated Diagnoses Date/Ti me COLONOSCOPY Encounter for screening for colorectal cancer in high risk patient Family history of rectal cancer documented as of this encounter Visit Diagnoses Not on filedocumented in this encounter Care Teams Biofuels Plant Operations Engineer Relationship Specialty Start Date End Date Beka Nick MD [address] [place] [address] PCP - General Family Practice 05/31/23 04/25/24 Amber Montesinos, RN Production Associate Transplant 11/17/19 Jil Duncan MD Consulting Physician Infectious Diseases 01/10/20 Anita Gillespie MD Medical Oncologist/Water Treatment Specialist Medical Oncology 10/07/20 Tabitha Hurley MD [address] [facility] [address] [place] [address] Consulting Physician Rheumatology 10/22/21 Massiel Gastelum MD [address] [place] [address] Consulting Physician Otolaryngology 08/27/22 documented as of this encounter
--- OUTSIDE RECORDS SUMMARY | 2024-10-28 06:03 | XMS_ITS | Encounter Summary ---
Author Organization [facility] Address [address] [place] [address] Phone Care Team Providers Care Pot Liner Name Role Phone Amber Montesinos RN Unavailable [phone] Jil Duncan MD Unavailable [phone] Anita Gillespie MD Unavailable [phone] Tabitha Hurley MD Unavailable [phone] Massiel Gastelum MD Unavailable [phone] Beka Nick MD Primary Care Provider [phone] Encounter Details Date Type Department Care Team (Late st Contact Info) Description 03/24/2024 Telephone [facility] Infectious Diseases [address] [place] [phone] Lucrecia Stout, ADAM Social History Tobacco Use Types Packs/Day Years Used Date Smoking Tobacco: Never Smokeless Tobacco: Current Chew Alcohol Use Standard Drinks/Week Comments Yes 0 (1 standard drink = 0.6 oz pur e alcohol) occassional OASIS D0700: Social Isolation Answer Da te Recorded Frequency of experiencing loneliness or isolatio n Never 02/29/2024 [facility] Utilities Answer Date Recorded In [...] on file 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 * Telephone Encounter - Lucrecia Stout BS - 03/24/2024 3:35 PM CDT [facility] infusion called regarding a fax that was sent over needing signature & asked for a message to be sent over to confirm it was received [facility] @ [phone] documented in this encounter Plan of Treatment Scheduled Procedures Name Priority Associated Diagnoses Date/Ti me COLONOSCOPY Encounter for screening for colorectal cancer in high risk patient Family history of rectal cancer documented as of this encounter Visit Diagnoses Not on filedocumented in this encounter Care Teams Pot Liner Relationship Specialty Start Date End Date Beka Nick MD [address] [place] [address] PCP - General Family Practice 05/31/23 04/25/24 Amber Montesinos, SHAILESH Refrigeration Insulator Transplant 11/17/19 Jil Duncan MD Consulting Physician Infectious Diseases 01/10/20 Anita Gillespie MD Medical Oncologist/Service Girl Medical Oncology 10/07/20 Tabitha Hurley MD [address] [facility] [address] [place], [place] [id number] Consulting Physician Rheumatology 10/22/21 Massiel Gastelum MD [address] [place] [address] Consulting Physician Otolaryngology 08/27/22 documented as of this encounter
--- OUTSIDE RECORDS SUMMARY | 2024-10-28 06:03 | XMS_ITS | Encounter Summary ---
Author Organization [facility] Healthcare Address [address] [place] [address] Care Team Providers Care Swimming Pool Servicer Name Role Phone Amber Montesinos RN Unavailable [phone] Jil Duncan MD Unavailable [phone] Anita Gillespie MD Unavailable [phone] Tabitha Hurley MD Unavailable [phone] Massiel Gastelum MD Unavailable [phone] Unknown, Notinfile Primary Care Provider Unavail able Reason for Visit * Auth/Cert Specialty Diagnoses / Procedures Referred By Contac t Referred To Contact Diagnoses Chronic otitis media of both ears with effusion Chronic otitis media of both ears with effusion [H65.493] Procedures AL TYMPANOSTOMY GENERAL ANESTHESIA BILATERAL MYRINGOTOMY TUBE INSERTION Referral ID Status Reason Start Date Expiration Date Visits Re quested Visits Authorized [id number] 1 1 Encounter Details Date Type Department Care Team (Latest Contact Info) Description 04/28/2024 7:02 AM CDT - 04/28/2024 10:46 AM CDT Hospital Encounter [facility] [address] [place] [address] Massiel Gastelum MD [address] [place] [address] Chronic otitis media of both ears with effusion (Primary Dx) Discharge Disposition: Discharge to home or self care Social History Tobacco Use Types Packs/Day Years Used Date Smoking Tobacco: Never Smokeless Tobacco: Current Chew Tobacco Cessation:Ready to Q uit: Yes; Counseling Given: Yes Comments:Chews tobacco on occasion Alcohol Use Standard Drinks/Week Comments Yes 0 (1 standard drink = 0.6 oz pur e alcohol) occassional OASIS D0700: Social Isolation Answer Da te Recorded Frequency of experiencing loneliness or isolatio n Never 02/29/[address] [facility] Utilities Answer Date Recorded In the past 12 months has e [employer], gas, oil, or water [employer] threatened to shut off services in your [...] week 02/23/2024 How often do you attend [facility] ch or yarsanism services? 1 to 4 times per year 02/23/2024 Do you belong to any clubs o r organizations such as lutheran groups, unions, fraternal or athletic groups, or [...] place to sleep or slept in a usp (including now)? No 02/23/2024 Personal Safety Answer Date Recorded Have you ever been in or are you currently in a harmful physical or emotional relationship or is someone making you feel afraid or unsafe? Denies 04/28/2024 Sex and Gender Information Value Date Recorded Sex Assigned at Not on file Legal Sex Male 6:28 AM [employer] Gender Identity Not on file Sexual Orientation Straight 08/22/2021 9: 23 AM CDT documented as of this encounter Last Filed Vital Signs Vital Sign Reading Time Taken Comments Blood Pressure 115/77 04/28/2024 10:30 AM CDT Pulse 84 04/28/2024 10:30 AM CDT Temperature 36.7 ??C (98.1 ??F) 04/28/2024 9:58 AM CD T Respiratory Rate 18 04/28/2024 10:30 AM CDT Oxygen Saturation 98% 04/28/2024 10:30 AM CDT Inhaled Oxygen Concentration - - Weight 62.6 kg (138 lb) 04/21/2024 2:25 PM CDT Height 172.7 cm (5' 8 ) 04/21/2024 2:25 PM CDT Body Mass Index 20.98 04/21/2024 2:25 PM CDT documented in this encounter Discharge Instructions * Discharge Instructions* Robel Chen MD - 04/27/2024 5:22 PM CDT PATIENT INSTRUCTION SHEET FOR AFTER SURGERY MYRINGOTOMY WITH TUBE PLACEMENT An ear tube (also called a tympanostomy tube or pneumatic equalization tube) is placed to relieve pressure and/or fluid behind the eardrum. Pressure and fluid can develop because of recurrent ear infections, inability to clear the fluid, or problems ventilating the ear (i.e. Eustachian tube dysfunction). The ear tube gets inserted into the eardrum to keep the space behind the eardrum (i.e. middleear space) aerated for a prolonged period of time. These ventilating tubes can remain in place for 6 months to several years. Eventually they will move out of the eardrum and fall into the ear canal.Your doctor may also remove the tube during a routine office visit or it may simply fall out of theear. This is a brief outpatient surgery, meaning you will go home the same day. You may resume normal activity the following day. Your surgeon may want to see you back 4-weeks after the surgery and routinely every 6 months to monitor the tubes. Please specify the follow-up schedule with your surgeon. Medication Pain Medication: Narcotic pain medication is not necessary after ear tubes. You can take Tylenol 500-1000 mg every 6 hours as needed. Ibuprofen or NSAIDs can also be used. Ear Drops: Drainage for 3-5 days after surgery is common. If it persists any longer or occurs in the future, use the antibiotic ear drops given to you at the time of surgery and notify the office forfurther instructions. After-Care Dry ear precautions with ear tubes have changed over the years. If you are prone to ear infections or ear drainage then it is always safest to keep the ear dry while the tube is in place. To do this place a cotton ball smeared with Vaseline in the ear canal prior to showering, bathing, washing hairor swimming. If you are not prone to frequent ear infections, then you do not necessarily need to ke ep the ear dry during routine bathing or surface swimming. Dry ear precautions are always advised when swimming in water that contains a higher bacterial level (i.e. lakes, ponds, [place]). Questions or Concerns? Michael Gastelum MD Nursing support: [phone] After-hours or weekends: [phone] (ask for ENT on-call) documented in this encounter Medications at Time [...] daily 03/03/2025 4 furosemide (LASIX) 20 mg tablet TAKE 2 TABLETS (40 MG TOTAL) BY MOUTH DAILY. 60 tablet 1 04/18/2024 4 ofloxacin (FLOXIN) 0.3 % otic solution [...] 02/07/2024 4 spironolactone (ALDACTONE) 50 mg tablet TAKE 2 TABLETS BY MOUTH EVERY DAY 60 tablet 1 04/18/2024 4 ursodioL (ACTIGALL) 300 mg capsuleIndicatio ns:Cholelithiasi s Prevention Take 2 capsules (600 mg total) by mouth daily with dinner 180 capsule 3 07/27/2023 4 valGANciclovir (VALCYTE) 450 mg tabletIndication s:Prophylaxis, Medical Take 2 tablets (900 mg total) by mouth 2 (two) times a day 120 tablet 5 09/21/2023 4 documented as of this encounter Ordered Prescriptions Prescription Sig Dispense Quantity Refills Last Filled Start Date End Date ofloxacin (FLOXIN) 0.3 % otic solution Administer 5 drops into each ear 2 (two) times a day Start 1 day after surgery and continue for 1 week and as needed if drainage recurs 04/28/2024 4 documented in this encounter Discharge Disposition Disposition Code Departure Means Destination Comment s Discharge to home or self care documented in this encounter H&P Notes * Robel Chen MD - 04/28/2024 9:02 AM CDT I have reviewed the H&P, examined the patient, and endorse the findings as written. Plan of Care : Based on the above findings, I consider Beka Nichols to be an acceptable risk for : Procedure(s): BILATERAL MYRINGOTOMY TUBE INSERTION Cosigned by Massiel Gastelum MD at 04/28/2024 9:04 AM CDT Source Note - Judah Chong MD - 04/24/2024 1:24 PM CDT Images from the original note were not included. [facility] for Preoperative Assessment and Planning Preoperative Evaluation Record Evaluation type/location: TPAP from [facility] Planned procedure site: [facility] CAM OR (Pod 4) Date: 04/24/24 NOTE: This note represents a preoperative evaluation initiated via telephone interview. NO PHYSICALEXAM was performed at the time of initial assessment. A physical exam may be added to this note anddocumented below. Anesthesia Evaluation Beka Nichols is a 29 y.o. 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 He is s/p [facility] inpatient hospitalization (02/17 - 02/25) for LLL cavitary PNA ,CXR with RLL pneumonia, and Pneumonia PCR + for MSSA, bacteremia s/p IV ABX. Patient states that his pulmonary status stable at present time. Past Medical History Information obtained from: patient and chart. Information obtained during: Telephone Visit NOTE: This note represents a preoperative evaluation initiated via virtual (video or telephone) interview. NO PHYSICAL EXAM was performed at the time of initial assessment. A physical exam may be added to this note and documented below. Neurological Pertinent negatives: seizures; neuromuscular disease and CVA/stroke Cardiovascular + DVT/PE (Hx PE - no longer on AC; 08/2023: Superficial vein thrombus in the left upper extremity) Last VTE date: 12/20/2016. Respiratory + Current smoker (Uses chewing tobacco) - Counseled to abstain from smoking the day of surgery. Pertinent negatives: COPD; asthma; sleep apnea (WINTER); pulmonary hypertension and no O2 use outside the hospital Hepatic / Heme + Liver disease (2012 Autoimmune Hepatitis) - other. + History of anemia (03/28/24: H/H = 11.9/33.0) + History of thrombocytopenia (03/28/24: Plt Ct = 188,000) Pertinent negatives: history of Carol positive Comments: 2012, autoimmune hepatitis (Non A, Non B) s/p orthotopic liver transplant 03/30/2009, c/bPTLD (c-Myc, EBV +) s/p R-CHOP x 1 (2016), DA-EPOCH-R x 5 (09/2017-12/2017) with IT MTX w/ C3 10/2017, achieving CR in 12/2017, persistent quantifiable CMV viremia since 06/2019. History of refractory ITP s/p splenectomy 2012. 03/28/2024: T Bili = 1,3, Alk Phos = 197, AST = 50, ALT = 36 Musculoskeletal/Pain Pertinent negatives: chronic pain Endocrine / Other + Cancer history- in remission and s/p chemo. Cancer type: 2018 Non-Hodgkins Lymphoma S/p chemotherapy x6 months. 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 Has F/u with [facility] Liver Transplant Team.) - liver. + Infectious disease (02/17 - 02/25: MSSA Bactermia, Pneumonia PCR positive for MSSA) - pneumonia andsepsis. Pertinent negatives: diabetes mellitus; thyroid disease; obesity (BMI >30) and rheumatological disease Comments: + Immunocompromised 02/18/2024 - 02/26/2024: Hospitalized at [facility] Acute respiratory failure with hypoxia (CMS/HCC) (HCC) Arrived with 2L oxygen requirement iso shock, PNA, rhinovirus. CT w/ left lower lobe cavitary PNA with left pleural effusion, increased from priors. Pneumonia PCR positive for MSSA. See MSSA bacteremia for antibiotic treatment. LEDs negative. RVP +rhino/enterovirus. Weaned to room air. MSSA Bacteremia Arrived in septic shock requiring low-dose levophed for <24 hours.BC MSSA+ (02/17, 02/18), neg (02/19), MSSA (02/20), NGTD (02/21), staph capitis (02/22).CVC placed (02/17), removed (02/19).TTE (02/20) no obvious valvular vegetations. PICC line placed(02/24).Plan for total of 6 weeks of treatment with IV cefazolin from 02/22/2024. 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 Now on monthly Cutaquig, last dose 02/13. Thrombocytopenia Most likely secondary to sepsis, bacteremia.Improved 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HCC) Patient with chronic CMV with multiple resistance patterns. CMV viremia subpopulations w/ heterogenous resistance (h/o ganciclovir, cidofovir, maribavir). Continued on valganciclovir and letermovir during admission. 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 Review of Systems + productive cough (thin white sputum) + SOB (stable gomez) + recent cold/flu (last tx'd for sinus infection ~ January 2024, prior to PNA) + previous transfusion (? 1998; 2017--no adverse reaction reported) + hard of hearing (R ear) + vision loss (glasses) + chipped/loose teeth (Chipped lower right front tooth) Pertinent negatives: wheezing; fever; chest pain; palpitations; orthopnea; pedal edema; PND; SickleCell disease/trait; transfusion reaction; melena/hematochezia; easy bruising; bleeding problems; syncope; dizziness; muscle weakness; chronic pain; numbness/tingling; heartburn; nausea; dysphagia; diarrhea; dentures/partials; abdominal pain; diaphoresis and no unexpected weight change Comments: Sees PCP ~ 1x/yr PAT Summary and Plans Cardiac risk classification of planned procedure: low cardiac risk. Disposition: suitable for outpatient surgery center. Preoperative assessment status: complete. Initial preoperative evaluation discussed with: John Vogt MD Additional comments: Beka Nichols is a 29 y.o. male who is being evaluated prior to undergoing a low cardiac risk surgery. Revised Cardiac Risk Index factors are (none) for a total RCRI of 0 out of6. Functional capacity is <4 METs (specifically: stable gomez w/ walking 4 city blocks). Obstructive sleep apnea (WINTER) screening status is STOP-BANG incomplete but suspected to be 0-2 suggesting low risk for WINTER. Neck circumference pending.. This assessment was performed via telephone. Therefore the physical exam has been deferred to the day of surgery team. The patient was provided with preoperative instructions for their medications. Patient instructions were provided by telephone and electronically sent via [employer]. Patient verbalized understanding of instructions. Blood bank needs for day of procedure: No type and screen needed Pending labs/tests include: None TPAP ASSESSMENT COMPLETE. Preoperative evaluation performed by Astrid Phillips NP on 04/24/24 at 2:13 PM . Patient Active Problem List Diagnosis Date Noted Chronic otitis media of both ears with effusion 04/12/2024 History of splenectomy 03/21/2024 Bacteremia 02/21/2024 Pneumonia of left lung due to infectious organism, unspecified part of lung 02/18/2024 Shock (CMS/[facility]) ([facility]) 02/18/2024 Bicytopenia 02/18/2024 Hypocalcemia 02/18/2024 Hyponatremia 02/18/2024 Hypoalbuminemia 02/18/2024 CVID (common variable immunodeficiency) ([facility]) 02/18/2024 Portal hypertension (CMS/[facility]) ([facility]) 02/18/2024 History of pulmonary embolus (PE) 02/18/2024 Subacute cough 11/29/2023 Edema of left lower extremity 10/11/2023 Parapneumonic effusion 10/11/2023 Acute respiratory failure with hypoxia ([facility]) ([facility]) 10/09/2023 Acute superficial DVT of left upper extremity 08/28/2023 Rhinovirus 08/27/2023 Hypocalcemia and hypomagnesemia 08/27/2023 Gram-negative bacteremia 08/24/2023 Macrocytic anemia 08/23/2023 Ansarca 08/23/2023 Jaundice 08/23/2023 Colitis 08/23/2023 Eustachian tube dysfunction, bilateral 06/02/2023 Subcutaneous nodule of right lower extremity 07/09/2022 Immunocompromised (HCC) 05/13/2022 Chronic pansinusitis 02/17/2022 Muscle weakness Myalgia 10/08/2020 On antiviral therapy 03/11/2020 Elevated LFTs 02/15/2020 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HCC) 12/21/2019 Immunocompromised patient (HCC) 01/06/2019 Community acquired pneumonia 01/06/2019 Lymphadenopathy 01/06/2019 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 01/06/2019 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) 08/25/2017 History of liver transplant (CMS/HCC) (HCC) 06/06/2014 Cytomegalovirus infection (HCC) 04/27/2014 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) 02/15/2014 Autoimmune hepatitis (CMS/HCC) (HCC) 05/18/2012 Hypogammaglobulinemia (HCC) 02/17/2010 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 Past Medical History: Diagnosis Date Cancer (CMS/HCC) (HCC) Chronic diarrhea CMV (cytomegalovirus infection) (HCC) Community acquired pneumonia of right middle lobe of lung 01/06/2019 Generalized enlarged lymph nodes Lymphadenopathy, generalized - (Added by TW Conv) History of non-Hodgkin's lymphoma History of non-Hodgkin's lymphoma - (Added by TW Conv) Localized enlarged lymph nodes LAD (lymphadenopathy), mediastinal - (Added by TW Conv) Other complications of unspecified transplanted organ and tissue PTLD (post-transplant lymphoproliferative disorder) - (Added by TW Conv) PNA (pneumonia) Pulmonary emboli (HCC) Past Surgical History: Procedure Laterality Date BIOPSY LIVER N/A 02/02/2020 BIOPSY LYMPH NODE SUPERFICIAL N/A 05/22/2014 EXCHANGE PICC LINE Left 12/24/2021 FUNCTIONAL ENDOSCOPIC SINUS SURGERY 08/28/2022 IR PICC LINE PLACEMENT > 5 YEARS N/A 12/19/2021 IR PICC LINE PLACEMENT > 5 YEARS N/A 12/26/2021 IR PICC LINE PLACEMENT > 5 YEARS 01/2024 removed in March 2024 LIVER TRANSPLANT 1999 OTHER SURGICAL HISTORY 01/06/2019 Excisional lymph node biopsy of neck SPLENECTOMY US ABDOMEN COMPLETE W LIVER DOPPLER (C) Right 10/18/2018 US GUIDED BIOPSY LIVER N/A 10/18/2018 US GUIDED BIOPSY LIVER N/A 05/14/2020 US GUIDED BIOPSY LIVER N/A 08/31/2022 US GUIDED BIOPSY LYMPH NODE SUPERFICIAL LEFT N/A 10/13/2019 US GUIDED BIOPSY LYMPH NODE SUPERFICIAL LEFT N/A 10/07/2021 No Known Allergies Med List Status: Nurse Complete Set By: Ileana Funez, RN at 04/21/2024 2:24 PM Taking? Last Dose Start Date End Date Provider Cutaquig 16.5 % solution Past Month 02/09/24 -- Dl Barajas MD Notes: 02/14/24 furosemide (LASIX) 20 mg tablet Not Taking 03/03/25 -- Dl Barajas MD furosemide (LASIX) 20 mg tablet 04/21/2024 04/18/24 06/17/24 Susan Zhou MD TAKE 2 TABLETS (40 MG TOTAL) BY MOUTH DAILY. Patient taking differently: Take 2 tablets (40 mg total) by mouth every morning guaiFENesin ER (MUCINEX) 600 mg 12 hr tablet Past Week 02/26/24 02/25/25 Roxann Craft MD Take 1 tablet (600 mg total) by mouth 2 (two) times a day Patient taking differently: Take 1 tablet (600 mg total) by mouth as needed for congestion or cough letermovir (PREVYMIS) 480 mg tablet 04/21/2024 04/03/24 09/30/24 Lisandra Auguste NP Take 1 tablet (480 mg total) by mouth daily Patient taking differently: Take 1 tablet (480 mg total) by mouth every morning predniSONE (DELTASONE) 10 mg tablet Not Taking 02/07/24 -- Massiel Gastelum MD Take 40Mg PO for 3 days, then 30Mg PO for 3 days, then 20Mg PO for 3 days, then 10Mg PO for 3 days. Patient not taking: Reported on 04/21/2024 sodium chloride 0.9% injection Not Taking -- -- Dl Barajas MD spironolactone (ALDACTONE) 50 mg tablet -- 04/18/24 -- Susan Zhou MD TAKE 2 TABLETS BY MOUTH EVERY DAY Patient taking differently: Take 2 tablets (100 mg total) by mouth every morning tacrolimus 0.5 mg immediate-release capsule 04/20/2024 01/03/24 01/02/25 Alex Lemus MD Take 1 capsule (0.5 mg total) by mouth every other day Notes: Txp: 03/03/1999 (Liver) D/C: ICD10: Z94.4 Center: [facility] ([place], [place]) traZODone (DESYREL) 50 mg tablet 01-19-2024 04/03/24 -- Anita Gillespie MD TAKE 1 TABLET BY MOUTH NIGHTLY Patient taking differently: Take 1 tablet (50 mg total) by mouth as needed for sleep ursodioL (ACTIGALL) 300 mg capsule 04/20/2024 07/27/23 -- Dvaid Pool MD Take 2 capsules (600 mg total) by mouth daily with dinner Notes: PA/Tejal P: [phone] F: [phone] Ongoing Comment Alex Daily RN 03/15/2024 7:21 AM 02/18/20NO INTERACTIONS FOR ADMISSION-WIN CASH No interactilns 03/12/2020 Rosemarie RN No interactions noted. 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 CAITLYN RN 02/29/2024 No severe interactions noted Mayda Jones RN 03/14/2024 Severe interaction between spir onolactone and tactrolimus. Per Dr.Jeffrey Lemus patient may continue both medications as directed. DAMIAN RN No current facility-administered medications for this encounter. Current Outpatient Medications: Cutaquig 16.5 % solution furosemide (LASIX) 20 mg tablet guaiFENesin ER (MUCINEX) 600 mg 12 hr tablet letermovir (PREVYMIS) 480 mg tablet tacrolimus 0.5 mg immediate-release capsule traZODone (DESYREL) 50 mg tablet ursodioL (ACTIGALL) 300 mg capsule [START ON 03/03/2025] furosemide (LASIX) 20 mg tablet predniSONE (DELTASONE) 10 mg tablet sodium chloride 0.9% injection spironolactone (ALDACTONE) 50 mg tablet Social History Tobacco Use Smoking Status Never Smokeless Tobacco Current Types: Chew Alcohol Use: Not At Risk (04/21/2024) AUDIT-C Frequency of Alcohol Consumption: 2-4 times a month Average Number of Drinks: 1 or 2 Frequency of Binge Drinking: Never Substance and Sexual Activity Drug Use Never Family History Problem Relation Age of Onset Rectal cancer Mother Rectal cancer - (Added by TW Conv) No Known Problems Father Diabetes type II Sister Family history of type 2 diabetes mellitus - (Added by TW Conv) Anesthesia problems Other There were no vitals filed for this visit. Relevant diagnostics: EGD/EUS (08/27/23): EGD: - No esophageal varices. [...] guided liver biopsy was performed as described. Other: 03/20/2024: CXR - IMPRESSION: The current study is compared with the prior radiograph dated 02/24/2024. Abdominal surgical clips. Clear lungs without new focal consolidation, pleural effusion, or pneumothorax. The heart size is stable. PT: No results found for requested labs within last 30 days. INR: No results found for requested labs within last 30 days. APTT: No results found for requested labs within last 30 days. Hgb A1C: No results found for requested labs within last 30 days. CBC RBC: 03/28/2024: 3.06 M/cumm (L) RDW: No results found for requested labs within last 30 days. MCHC: 03/28/2024: 36.1 g/dL (H) MCH: 03/28/2024: 38.9 pg (H) MCV: 03/28/2024: 107.8 fL (H) Hct: 03/28/2024: 33.0 % (L) Hgb: 03/28/2024: 11.9 g/dL (L) WBC: 03/28/2024: 4.5 K/cumm MPV: 03/28/2024: 10.9 fL Platelets: 03/28/2024: 188 K/cumm RDW CV: 03/28/2024: 17.3 % (H) RDW Sd: 03/28/2024: 68.8 fL (H) BMP Glucose: 03/28/2024: 106 mg/dL Calcium: 03/28/2024: 8.5 mg/dL Sodium: 03/28/2024: 139 mmol/L Potassium: 03/28/2024: 4.0 mmol/L CO2: 03/28/2024: 20 mmol/L (L) Chloride: 03/28/2024: 110 mmol/L BUN: 03/28/2024: 12 mg/dL Creatinine: 03/28/2024: 1.06 mg/dL Arti index score: 100 DOS Physical Exam Medical history, medications, and allergies reviewed. Attestation: I endorse the findings of the anesthesia pre-evaluation assessment dated: 04/24/2024. Airway Exam: Mallampati: II Cervical ROM: FROM TM distance: normal Cardiovascular Exam: Rate: regular Rhythm: regular Pulmonary Exam: LCTA, bilat EENT Exam: trachea midline Dental Exam: Appears intact Skin Exam: Skin is warm. Abdominal Exam: Abdomen is soft. Current state: Patient's current state is cooperative and interactive. Anesthesia Plan ASA 3 My patient is approved for the Anesthesia Controlled Medication protocol when under care of a COOLER MAN Planned anesthesia: General Team communication plan: LMA Induction: Induction: intravenous. Postoperative Plan: Postoperative administration opioids intended. No postoperative mechanical ventilation intended. Patient's planned disposition post procedure is Outpatient. No trial extubation planned. Informed Consent: Discussed plan with COOLER MAN. Anesthesia plan and risks discussed with patient and mother. Consent and Attending signature: I and/or my designee have discussed the anesthesia plan, benefits, possible alternatives, parental presence at time of induction (if indicated), and clinically relevant risks that may include dental injury, unintentional awareness, and/or other complications. The patient and/or parent/legal guardian understand, and agree to proceed. All questions answered. documented in this encounter Miscellaneous Notes * Op Note - Massiel Gastelum MD - 04/28/2024 9:30 AM CDT OTOLARYNGOLOGY OPERATIVE NOTE NAME: Beka Nichols DATE OF : 1995 DATE OF SURGERY: 04/28/2024 SURGEON: Massiel Gastelum MD SURGICAL TEAM: Surgeons and Role: * Massiel Gastelum MD - Primary * Robel Chen MD - Resident - Assisting PREOPERATIVE DIAGNOSIS: Pre-op Diagnosis * Chronic otitis media of both ears with effusion [H65.493] POSTOPERATIVE DIAGNOSIS: Post-op Diagnosis * Chronic otitis media of both ears with effusion [H65.493] PROCEDURE: BILATERAL MYRINGOTOMY TUBE INSERTION (B) ANESTHESIA: Anesthesiologist: Judah Chong MD Anesthesia type: General INDICATION FOR PROCEDURE: Beka Nichols is a 29 y.o. male who presents with chronic otitis media with effusion, s/p left tube placement in office May 2023 associated with pain and inability to tolerate/place right tube. Effusion recurred on right in past few months associated with discomfort and diminished hearing. After detailed discussion regarding the risks and benefits with the patient, he presents for right ear tube placement and left tube replacement. FINDINGS: Right ear: Thickened tympanic membrane inferiorly with myringosclerosis, mucoid middle ear effusion Left ear: Ear tube in the tympanic membrane surrounded by crust. After removal of the tube, residual perforation with clean edges and 15-20%. New ear tube sitting in this site loosely. Tubes used: collar button OPERATIVE REPORT: After informed consent was obtained Beka Nichols was brought to the operating room, laid supine on the operating table. Anesthesia was induced. A complete time out was performed before commencementof the surgical procedure. The operating microscope was brought into place. The right ear was examined, the ear canal was cleaned of cerumen, an anterior inferior myringotomy was performed, the middle ear was suctioned, a tympanostomy tube was placed and ofloxacin drops wereplaced into the ear. The left ear was examined, the ear canal was cleaned of cerumen, an anterior inferior myringotomy was performed, the middle ear was suctioned, a tympanostomy tube was placed and ofloxacin drops were placed into the ear. The patient was turned back to anesthesia for emergence. Condition on Discharge from the operating room was stable. TEACHING ATTESTATION : I was present and directly participated in the entire procedure (including opening and closing).. IMPLANTS: Implant Name Type Inv. Item Serial No. Scissors Grinder Lot No. LRB No. Used Action [employer] Bobbin 1.27mm 1.55mm Collar Button Tube Ventilation Fluoroplastic [id number] - [id number] [employer] 1.27mm 1.55mm Collar Button Tube Ventilation Fluoroplastic [id number] [employer] [id number] Right 1 Implanted ESTIMATED BLOOD LOSS: 0 mL SPECIMENS: No specimens collected during this procedure. COMPLICATIONS: None. Massiel Gastelum MD Date: 04/28/2024 Time: 9:42 AM * Pre-Procedure Instructions - Astrid Phillips NP - 04/24/2024 2:02 PM CDT [facility] CP[facility] Clinic Location: [facility] The night before your surgery: * Do not eat anything after midnight the night before your procedure. The morning of your surgery: * You may have clear liquids on your surgery day. You must stop drinking two hours before you arrive to the surgery facility. Acceptable clear liquids include water, clear sports drinks, black coffee, tea, or clear soda. DO NOT drink any milk, creamer, or alcohol. * Your surgeon's office may have provided additional instructions or restrictions. Please follow those instructions. * You may brush your teeth and rinse your mouth out. * Do not glue your dentures. * Do not wear jewelry, body piercings, makeup, hairpins, false eyelashes or contact lenses to the hospital. * Leave any valuables at home or with your family. * If you have an implantable device with a remote, bring the remote with you on the day of surgery. * If you use home oxygen, bring your portable oxygen tank with you on the day of surgery * If you are going to be admitted after surgery at [facility], COVID testing may be performed on the day of surgery, even if you are up to date on your COVID-19 vaccine. * If having surgery at [facility], you may want to bring a credit card if you want to use our Mobile Pharmacy for your discharge medications. Mobile pharmacy is not available at [facility], the Orthopedic Center, or the [place] for [facility]. Outpatient Surgery: * You must have a responsible adult drive you home and stay with you for 24 hours after your surgery * You cannot be alone at home or in a hotel * Please call your surgeon's office if you do not have someone to drive you home and/or stay with you after surgery * Please bring any items you may need to spend the night in the hospital. Sometimes patients need to be cared for in the hospital overnight. Instructions For Your Medications: Pre-Surgery Instructions: Medication Instructions Cutaquig 16.5 % solution Don't take on day of surgery guaiFENesin ER (MUCINEX) 600 mg 12 hr tablet Don't take on day of surgery letermovir (PREVYMIS) 480 mg tablet Take morning of surgery tacrolimus 0.5 mg immediate-release capsule Take morning of surgery if scheduled to take this medication traZODone (DESYREL) 50 mg tablet Take night before day of surgery, as per usual schedule, as needed ursodioL (ACTIGALL) 300 mg capsule Take evening before day of surgery, as per usual schedule furosemide (LASIX) 20 mg tablet Don't take on day of surgery spironolactone (ALDACTONE) 50 mg tablet Don't take on day of surgery General Instructions For Medications: * Stop all of these medications 5 days prior to your surgery: excedrin, motrin, advil, ibuprofen, aleve, naproxen, meloxicam, celebrex, celecoxib. For medications that you are instructed to take on the morning of surgery, take the medications with a few sips of water. Stop all of these medications 7-14 days prior to your surgery: Vitamin E, Herbal medicines, Diet Pills If you take aspirin, do not stop taking it unless you were instructed to do so. If you use inhalers, please bring them with you on the day of your procedure. If you have pain, you may take tylenol (acetaminophen). Do not take more than 6 tablets or 3000 mg (3 g) within a 24 period. Call your surgeon and the CPAP clinic if any of the following happens before surgery: Any changes in your health You have a fever You have any signs of an infection (chest, urinary tract or tooth) You have been to the Emergency Room or were in the hospital You have started taking any new medications You have questions about a bowel prep or special diet before surgery You have symptoms of COVID-19 such as a new or worsening cough, shortness of breath, fever, body aches, loss of taste or smell, diarrhea or vomiting, or sore throat. You have a household contact with COVID-19. You test positive for COVID-19. If laboratory testing was completed during your visit, we will only contact you regarding any results that require you to take additional action prior to your planned procedure. * Pre-Procedure Instructions - Ileana Funez RN - 04/21/2024 2:31 PM CDT [facility] ([facility]) PRE-SURGICAL NURSING INSTRUCTIONS Telephone Assessment General Information Discussed with Patient: Surgery location provided to patient. Arrival time and surgical time will be provided to the patient by their surgeon. You should wear clothing that is clean, loose, comfortable and easy to get in and out of on the dayof surgery. You should remove nail coverings, artificial nails and nail sudanese prior to the day of surgery. You should leave your valuables and any jewelry at home. No metal or piercings are allowed in the operating room. You should bring your insurance card, a photo ID (example: Assistant Corporate Secretary's License) and a method of payment for any insurance copay, deductible or copay for discharge medications. You should bring a complete, up-to-date, list of all your medications on the day of surgery, including any over the counter medications or supplements you may take. Please note on your medication list, the last date & time you took each medication. The healthcare team, on the day of surgery, will ask for this information. You should bring your Advanced Directive and/or Living Will with you on the day of surgery if you have not verified a copy is already in your Epic Chart. If you are having surgery at [facility], please arrive on the day of surgery with the name and phone number of your local 24 hour pharmacy. Due to evening discharges, your routine pharmacy may be closed. In order to obtain your prescriptions that evening, your surgeon may need to send prescriptions to this pharmacy or have you take prescriptions to this pharmacy when you are discharged. Without this information, you may not be able to obtain your prescriptions that evening. A Guide for Patients Having Surgery: Your Pathway to Excellent Care OUR GOAL IS TO PROVIDE YOU WITH EXCELLENT CARE Use this guide to learn about what you can do before, during and after surgery to help your recovery. You are the most important person on your health care team. By becoming informed and involved, you can contribute to the success of your surgery. If your surgeon's directions are different than those in this guide, talk with your nurse or surgeon to confirm the information. It is important that you understand how to take care of yourself at home after surgery. Be sure to bring this guide with you on the day of surgery and take it home with you after surgery. Write down questions for your nurse or surgeon on the last page of this booklet. Important pages to be reviewed BEFORE surgery: Page 1: QR codes for Surgery Center maps Page 3: Types of Anesthesia Page 5: Tips for the day & night before surgery Page 6: When to stop eating BEFORE surgery and examples of clear liquids Page 7-10: Preventing Infection: Chlorhexidine Gluconate (CHG) Bathing Instructions You may access A Guide for Patients Having Surgery: Your Pathway to Excellent Care by the followinglink: [email or web address] How To Prepare Your Skin For Surgery Below is the Pre-Surgical Bathing Protocol you should follow for your surgery. If your surgeon provides you different bathing instructions, please follow your surgeon's orders. Normal Bathing: Bathe with regular soap the night before and/or day of surgery. Normal Bathing Protocol Bathe with your normal soap the night before and/or the morning of surgery. Wear clean clothes or pajamas to sleep in. After showering DO NOT put on deodorant, hair products, conditioners, lotions, creams, powders, Vaseline or any non-essential products. Remove nail coverings, artificial nails and nail sudanese. Place clean linens on your bed the night before surgery. Shaving: You may shave your face, legs and underarms during your evening shower. Avoid shaving on the day of surgery. Travel/Exposure Screening: Travel Screening Have you traveled outside the [place] in the last 6 months?: No Exposure Screening Have you been exposed to anyone who is sick in the last 30 days?: No Have you been exposed to or tested positive for COVID-19 within the last 10 days?: No Infectious Disease Screening Are you having any of the following:: Cough (since January) New or worsening cough for more than one month? : No As of 08/25/2022 any COVID TESTING required for surgery will be set up by your surgeon's office. Please reach out to your surgeon's office if you develop any COVID symptoms, test positive for COVID or are exposed to a COVID positive person. If you have questions, please call the CPAP Staff at [phone], Wednesday-Wednesday 8am-4:30pm. All patients should read the below section: Information on [facility] & the Orthopedic Center: Please view [email or web address] (Patient & Visitor Information) for additional details regarding Advanced Directive forms, AWARE, directions, parking information, lodging, Internet access, dining and more. For MyChart information, to activate account or password recovery, please go to [email or web address] or call [phone] (toll-free: [phone]), Wed- Wednesday 8am-5pm. Information for Suicide Prevention: National Suicide Prevention Lifeline (1-695- 131-PVHA (7568)) or call or text 724. Chat resources: [email or web address]. Surgery Times: For patients having surgery @ [facility] or [facility] ([facility]), if your surgeon's office has not notified you of your surgery time by NOON THE BUSINESS DAY BEFORE your surgery, please call [phone] and ask for your surgeon's office Dr Gastelum [phone] The [facility] Pre[facility] Planning (CPAP) does not provide arrival times for the day of surgery or provide the duration of surgery. This information is provided by your surgeon'soffice or by the center where you are having surgery. We appreciate your understanding. * Perioperative Nursing Note - Ileana Funez RN - 04/21/2024 2:30 PM CDT [facility] for Preoperative Assessment and Planning Perioperative Nursing Note Telephone Preoperative Evaluation ([facility]) - TELEPHONE ONLY, NO PHYSICAL EXAM Date: 04/21/24 This assessment was completed with the patient. Vitals: 04/21/24 1425 Weight: 62.6 kg (138 lb) Height: 172.7 cm (5' 8 ) CHEST CIRCUMFERENCE: NA Social History Tobacco Use Smoking Status Never Smokeless Tobacco Current Types: Chew Substance and Sexual Activity Drug Use Never Alcohol Use Q1: How often do you have a drink containing alcohol?: 2-4 times a month Q2: How many drinks containing alcohol do you have on a typical day when you are drinking?: 1 or 2 Q3: How often do you have six or more drinks on one occasion?: Never Outpatient Medications Marked as Taking for the 04/28/24 encounter (Hospital Encounter) Medication Sig Dispense Refill Cutaquig 16.5 % solution Inject 1 Dose under the skin every 30 (thirty) days furosemide (LASIX) 20 mg tablet TAKE 2 TABLETS (40 MG TOTAL) BY MOUTH DAILY. (Patient taking differently: Take 2 tablets (40 mg total) by mouth every morning) 60 tablet 1 guaiFENesin ER (MUCINEX) 600 mg 12 hr tablet Take 1 tablet (600 mg total) by mouth 2 (two) times a day (Patient taking differently: Take 1 tablet (600 mg total) by mouth as needed for congestion or cough) 60 tablet 11 letermovir (PREVYMIS) 480 mg tablet Take 1 tablet (480 mg total) by mouth daily (Patient taking differently: Take 1 tablet (480 mg total) by mouth every morning) 30 tablet 5 tacrolimus 0.5 mg immediate-release capsule Take 1 [...] mouth daily with dinner 180 capsule 3 Implants No active implants to display in this view. SKIN Piercings Remaining: No Wound (LDAs) Type of Wound (LDA): (denies) SCREENINGS Arti index score: 100 PATIENT CARE PLANNING Advance Directives (For Healthcare) Have you reviewed your Advance Directive and is it valid for this stay?: Not applicable Advance Directive: Patient does not have advance directive Communication/Acting Section Chief Needs Communication Needs: Glasses Assistive Devices/DME: Eyeglasses Hearing - Right Ear: Functional Hearing - Left Ear: Functional Discharge Planning Type of Residence: Private residence Living Arrangements: Parent Support Systems: Parent, Friends/neighbors Assistance Needed: his parents will be caring for him after procedure Patient expects to be discharged to:: Private residence BUTCHER APPRENTICE NO documented in this encounter Plan of Treatment Scheduled Procedures Name Priority Associated Diagnoses Date/Ti me COLONOSCOPY Encounter for screening for colorectal cancer in high risk patient Family history of rectal cancer documented as of this encounter Procedures Procedure Name Priority Date/Time Associated Diagnosis Comments REMOVAL VENTILATION TUBE. 04/28/2024 9:10 AM CDT Chronic otitis media of both ears with effusion Case Notes 04/27@1011 Per Holly via phone, OK to push case back 30 minutes to accommodate early start case [id number]/@1559 Per Holly via case message, this case first CF/@[address] Singh, Approved to schedule as requested, understanding that the OR reserves the right to place a schedule into the vacant time which may push back the start of her first case here CF/19@[address] Singh requesting permission to start late CF/@0954 Per Holly via case message, move case to 04/28 CF06/@0834 Per Holly via case message, Can you please depot this so I can rsc it to an earlier date? CF TYMPANOSTOMY WITH VENTILATION TUBE BILATERAL. 04/28/2024 9:10 AM CDT Chronic otitis media of both ears with effusion Case Notes 04/27@1011 Per Holly via phone, OK to push case back 30 minutes to accommodate early start case CF06/19@1559 Per Holly via case message, this case first CF06/19@[address] Singh, Approved to schedule as requested, understanding that the OR reserves the right to place a schedule into the vacant time which may push back the start of her first case here CF06/19@[address] Singh requesting permission to start late CF06/19@0954 Per Holly via case message, move case to 04/28 CF06/@0834 Per Holly via case message, Can you please depot this so I can rsc it to an earlier date? CF documented in this encounter Visit Diagnoses Diagnosis Chronic otitis media of both ears with effusion- Primary Chronic otitis media of both ears with effusion documented in this encounter Admitting Diagnoses Diagnosis Chronic otitis media of both ears with effusion documented in this encounter Administered Medications Inactive Administered Medications - up to 3 most recent administrations Medication Order MAR Action Action Date Dose Rate Site acetaminophen (TYLENOL) tablet 500 mg 500 mg, oral, Once, On Wed04/28/24 at 1030, For 1 dose, Phase I, When able to tolerate PO., Indications: PainIndications:Pain Given 04/28/2024 10:21 AM CDT 500 mg HYDROmorphone (DILAUDID) injection 0.2 mg 0.2 mg, intravenous, Administer over 2 Minutes, Every 10 min PRN, 1st line for pain, Starting on Wed04/28/24 at 0957, Phase I, Notify Anesthesiologist if total PACU dose reaches 2 mg and pain score 5/10 or more., Indications: PainIndications:Pain Given 04/28/2024 10:18 AM CDT 0.2 mg Lactated Ringer's (LR) infusion 30 mL/hr, intravenous, Continuous, Starting on Wed04/28/24 at 0830, Pre-Op Rate/Dose Verify 04/28/2024 9:02 AM CDT 30 mL/hr New Bag 04/28/2024 8:18 AM CDT 30 mL/hr 30 mL/hr scopolamine patch 72 hour 1 patch 1 patch, transdermal, Administer over 72 Hours, Once, On Wed04/28/24 at 0830, For 1 dose, Pre-Op, Indications: Prevention of Post-Operative Nausea and VomitingIndications:Prev ention of Post-Operative Nausea and Vomiting Medication Applied 04/28/2024 8:18 AM CDT 1 patch Behind Left Ear documented in this encounter Discontinued Medications Medication Sig Discontinue Reason Start Date End Da te magnesium oxide (MAG-OX) 400 mg (241.3 mg elemental magnesium) tabletIndications:hypom agnesemia Take 1 tablet (400 mg total) by mouth 2 (two) times a day for 7 days Take while on foscarnet Therapy completed 09/03/2023 04/21/2024 triamcinolone (KENALOG) 0.1 % cream Apply topically 2 (two) times a day as needed for rash Therapy completed 12/03/2023 04/21/2024 documented as of this encounter Active and Recently Administered Medications Times are shown in CDT. Scheduled Medication Order 04/26/2024 04/27/2024 04/28/2024 acetaminophen (TYLENOL) tablet 500 mg (COMPLETED) 500 mg, oral, Once, On Wed04/28/24 at 1030, For 1 dose, Phase I, When able to tolerate PO., Indications: Pain 1021 (Given - Provid er: Bonita Maloney RN) scopolamine patch 72 hour 1 patch 1 patch, transdermal, Administer over 72 Hours, Once, On Wed04/28/24 at 0830, For 1 dose, Pre-Op, Indications: Prevention of Post-Operative Nausea and Vomiting 0818 (Medication Brenda lied - Provider: Jayda Jj RN)1046 (Due: Medication Removed - Provider: Automatic Discharge Provider - Comment: Time automatically adjusted from order being discontinued) Continuous Medication Order 04/26/2024 04/27/2024 04/28/2024 Lactated Ringer's (LR) infusion 30 mL/hr, intravenous, Continuous, Starting on Wed04/28/24 at 0830, Pre-Op 0818 (New Bag - Prov ider: Jayda Jj RN)0902 (Rate/Dose Verify - Provider: Loree James MD)0952 (Anesthesia Volume Adjustment - Provider: Loree James MD)1446 (Due: Stopped) Lactated Ringer's (LR) infusion 125 mL/hr, intravenous, Continuous, Starting on Wed04/28/24 at 1030, Phase I 1030 (Due) PRN Medication Order 04/26/2024 04/27/2024 04/28/2024 albuterol 2.5 mg/0.5 mL nebulizer solution 2.5 mg 2.5 mg, nebulization, Once as needed, wheezing, Starting on Wed04/28/24 at 0957, For 1 dose, Phase I, Notify Anesthesiologist. , Indications: Bronchospastic Pulmonary Disease ciprofloxacin (CILOXAN) 0.3 % ophthalmic solution (CANCELED) As needed, Starting on Wed04/28/24 at 0941, Intra-Op 0941 (Given - Provid er: Massiel Gastelum MD - Comment: 5 ml ofloxacin given to field. 1.5 mL used) diphenhydrAMINE (BENADRYL) 50 mg/mL injection 12.5 mg 12.5 mg, intravenous, Every 15 min PRN, itching, Starting on Wed04/28/24 at 0957, For 2 doses, Phase I, Max cumulative dose 50 mg., Indications: Itching fentaNYL (SUBLIMAZE) preservative free injection 50 mcg 50 mcg, intravenous, Once as needed, uncontrolled pain on PACU admission, Starting on Wed04/28/24 at 0957, For 1 dose, Phase I, Then proceed to PACU 1st line analgesic., Indications: Pain HYDROmorphone (DILAUDID) injection 0.2 mg 0.2 mg, intravenous, Administer over 2 Minutes, Every 10 min PRN, 1st line for pain, Starting on Wed04/28/24 at 0957, Phase I, Notify Anesthesiologist if total PACU dose reaches 2 mg and pain score 5/10 or more., Indications: Pain 1018 (Given - Provid er: Bonita Maloney RN) meperidine (DEMEROL) preservative free injection 12.5 mg 12.5 mg, intravenous, Administer over 5 Minutes, Every 10 min PRN, shivering, Starting on Wed04/28/24 at 0957, For 2 doses, Phase I, Max cumulative dose 25 mg., Indications: Shivering naloxone (NARCAN) 0.4 mg/mL injection 0.04-0.4 mg 0.04-0.4 mg, intravenous, Once as needed, other, excessive sedation/respiratory depression, Starting on Wed04/28/24 at 0957, For 1 dose, Phase I, Dilute 0.4 mg with 9 mL NS (final concentration 0.04 mg/mL). For respiratory depression (respiratory rate less than 6), administer 0.4 mg IVP over 30 seconds. For excessive sedation administer 0.04 mg (1 mL) every 1 minute until desired level of alertness. For IV, administer over 30 seconds., Indications: Opioid Toxicity ondansetron (ZOFRAN) injection 4 mg 4 mg, intravenous, Administer over 2 Minutes, Once as needed, nausea, vomiting, Starting on Wed04/28/24 at 0957, For 1 dose, Phase I, Proceed to prochlorperazine if ondansetron has been given within the last 6 hours. prochlorperazine (COMPAZINE) injection 5 mg 5 mg, intravenous, Administer over 2 Minutes, Once as needed, nausea, vomiting, Starting on Wed04/28/24 at 0957, For 1 dose, Phase I, If nausea/vomiting not relieved by ondansetron within 30 minutes or if ondansetron has been given within the last 6 hours. sodium chloride 0.9% irrigation (CANCELED) As needed, Starting on Wed04/28/24 at 0942, Intra-Op 0942 (Given - Provid er: Massiel Gastelum MD) documented in this encounter Orders Medications Ordered That John ht Not Have Been Administered Count Last Ordered Date First Ordered Date albuterol 2.5 mg/0.5 mL nebu lizer solution 2.5 mg 1 04/28/2024 Carrier Fluids for Secondary Infusion - 0.9% Sodium Chloride 1 04/28/2024 ciprofloxacin (CILOXAN) 0.3 % ophthalmic solution 1 04/28/2024 diphenhydrAMINE (BENADRYL) 5 0 mg/mL injection 12.5 mg 04/28/2024 fentaNYL (SUBLIMAZE) preserv ative free injection 50 mcg 04/28/2024 Lactated Ringer's (LR) infusion 1 lidocaine (PF) (XYLOCAINE) 1 0 mg/mL (1 %) preservative free injection 2-10 mg 1 04/28/2024 meperidine (DEMEROL) preserv ative free injection 12.5 mg 1 04/28/2024 naloxone (NARCAN) 0.4 mg/mL injection 0.04-0.4 mg 1 04/28/2024 ondansetron (ZOFRAN) injection 4 mg 1 04/28 prochlorperazine (COMPAZINE) injection 5 mg 1 04/28/2024 sodium chloride 0.9% flush 0.5-20 mL 2 04/02 sodium chloride 0.9% irrigation 1 Discharge Count Last Ordered Date First Orde red Date DISCHARGE PATIENT 1 04/28/2024 documented in this encounter Care Teams Swimming Pool Servicer Relationship Specialty Start Date End Date Unknown, Notinfile PCP - General 04/26/24 08/01/24 Amber Montesinos, RN Marketing Strategy Manager Transplant 11/17/19 Jil Duncan MD Consulting Physician Infectious Diseases 01/10/20 Anita Gilelspie MD Medical Oncologist/Hammer Runner Medical Oncology 10/07/20 Tabitha Hurley MD [address] [place] [address] Consulting Physician Rheumatology 10/22/21 Massiel Gastelum MD [address] [place] [address] Consulting Physician Otolaryngology 08/27/22 documented as of this encounter
--- OUTSIDE RECORDS SUMMARY | 2024-10-28 06:03 | XMS_ITS | Encounter Summary ---
Author Organization [facility] Healthcare Address [address] [place] [address] Care Team Providers Care Safety Engineer Name Role Phone Amber Montesinos RN Unavailable [phone] Jil Duncan MD Unavailable [phone] Anita Gillespie MD Unavailable [phone] Tabitha Hurley MD Unavailable [phone] Massiel Gastelum MD Unavailable [phone] Guero Colunga DO Primary Care Provider [phone] Encounter Details Date Type Department Care Team (Late st Contact Info) Description 08/02/2024 7:15 AM CDT Lab [facility] [place] - Lab Collection [address] [facility] [address] [place] [address] 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 1 to 4 times per year [...] place to sleep or slept in a assisted (including now)? No 02/23/2024 Personal Safety Answer Date Recorded Have you ever been in or are you currently in a harmful physical or emotional relationship or is someone making you feel afraid or unsafe? 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 Gender Identity Not on file Sexual Orientation Straight 08/22/2021 9: 23 AM CDT documented as of this encounter Plan of Treatment Scheduled Procedures Name Priority Associated Diagnoses Date/Ti me COLONOSCOPY Encounter for screening for colorectal cancer in high risk patient Family history of rectal cancer documented as of this encounter Procedures Procedure Name Priority Date/Time Associated Diagnosis Comments CBC WITH AUTO DIFFERENTIAL Routine 08/02/2024 7:16 AM CDT 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) MANUAL DIFFERENTIAL Routine 08/02/2024 7 :16 AM CDT 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) EGFR Routine 08/02/2024 7:10 AM CDT 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) LACTATE DEHYDROGENASE Routine 08/02/2024 7:10 AM CDT 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) IGG Routine 08/02/2024 7:10 AM CDT 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) Hypogammaglobulinemia (HCC) COMPREHENSIVE METABOLIC PANEL Routine 08/02/2024 7:10 AM CDT 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) documented in this encounter Results * (ABNORMAL) Manual Differential (08/02/2024 7:16 AM CDT) Cells Counted 184 Comment:Testing performed by : [facility], [address] [place] [address] Neutrophil abs 1.0(L) 1.5 - 6.5 K/cumm [facility] Comment:Testing performed by : [facility], [address] [place], [place] [id number] Lymphocyte abs 1.7 0.8 - 3.3 K/cumm [facility] Comment:Testing performed by : [facility], [address] [place] [address] Monocyte abs 2.2(H) 0.2 - 0.8 K/cumm [facility] Comment:Testing performed by : [facility], [address] [place] [address] Eosinophil abs 0.1 0.0 - 0.5 K/cumm [facility] Comment:Testing performed by : [facility], [address] [place] [address] Basophil abs 0.1 0.0 - 0.1 K/cumm [facility] Comment:Testing performed by : [facility], [address] [place], [place] [id number] Neutrophil pct 18.0 % [facility] Comment: Interpretive Data Percent cell count reference ranges are not reported, since discordance with absolute values may lead to misinterpretation of CBC data. Current Interpretive Data was last revised on 2018. Testing performed by: [facility], [address] [place] [address] Lymphocyte pct 32.0 % [facility] Comment: Interpretive Data Percent cell count reference ranges are not reported, since discordance with absolute values may lead to misinterpretation of CBC data. Current Interpretive Data was last revised on 2018. Testing performed by: [facility], [address] [place], [place] [phone] Monocyte pct 40.0 % [facility] Comment: Interpretive Data Percent cell count reference ranges are not reported, since discordance with absolute values may lead to misinterpretation of CBC data. Current Interpretive Data was last revised on 2018. Testing performed by: [facility], [address] [place] [phone] Eosinophil pct 2.0 % [facility] Comment: Interpretive Data Percent cell count reference ranges are not reported, since discordance with absolute values may lead to misinterpretation of CBC data. Current Interpretive Data was last revised on 2018. Testing performed by: [facility], [address] [place] [phone] Basophil pct 2.0 % [facility] Comment: Interpretive Data Percent cell count reference ranges are not reported, since discordance with absolute values may lead to misinterpretation of CBC data. Current Interpretive Data was last revised on 2018. Testing performed by: [facility], [address] [place] [phone] Metamyelocyte pct 3.0 % [facility] Comment:Testing performed by : [facility], [address] [place], [place] [id number] Variant lymph pct 2.0 % [facility] Comment:Testing performed by : [facility], [address] [place] [phone] Other cell pct 1.0 % [facility] Comment:Testing performed by : [facility], [address] [place] [phone] Anisocytosis 1+(A) [facility] Comment:Testing performed by : [facility], [address] [place] [phone] Poikilocytosis 1+(A) [facility] Comment:Testing performed by : [facility], [address] [place] [phone] Microcytes 1+(A) [facility] Comment:Testing performed by : [facility], [address] [place] [phone] Macrocytes 1+(A) [facility] Comment:Testing performed by : [facility], [address] [place] [phone] Target cells 1+(A) [facility] Comment:Testing performed by : [facility], [address] [place] [phone] Platelet estimate Adequate [facility] Comment:Testing performed by : [facility], [address] [place] [address] Blood 08/02/2024 7:16 AM CDT 08/02/2024 7:17 AM CDT us Anita Gillespie MD LAB BLOOD ORDERABLES Final Result [facility] [place] [address] * (ABNORMAL) CBC with auto differential (08/02/2024 7:16 AM CDT) WBC 5.4 3.8 - 9.9 K/cumm Comment:Testing performed by : [facility], [address] [place] [address] Hgb 12.9(L) 13.0 - 17.5 g/dL [facility] Comment:Testing performed by : [facility], [address] [place] [address] Hct 38.0(L) 38.9 - 50.3 % [facility] Comment:Testing performed by : [facility], [address] [place] [address] Plt 263 150 - 400 K/cumm [facility] Comment:Testing performed by : [facility], [address] [place] [address] MPV 8.5 6.8 - 10.4 fL [facility] Comment:Testing performed by : [facility], [address] [place] [address] RBC 3.40(L) 4.30 - 5.80 M/cumm [facility] Comment:Testing performed by : [facility], [address] [place] [address] MCV 111.7(H) 81.3 - 96.4 fL [facility] Comment:Testing performed by : [facility], [address] [place], [place] [phone] MCH 38.0(H) 27.1 - 33.3 pg [facility] Comment:Testing performed by : [facility], [address] [place], [place] [phone] MCHC 34.0 32.3 - 35.7 g/dL [facility] Comment:Testing performed by : [facility], [address] [place], [place] [phone] RDW CV 13.5 11.1 - 14.9 % [facility] Comment:Testing performed by : [facility], [address] [place], [place] [phone] NRBC abs 0.00 0.00 - 0.01 K/cumm [facility] Comment:Testing performed by : [facility], [address] [place], [place] [phone] Blood 08/02/2024 7:16 AM CDT 08/02/2024 7:17 AM CDT us Anita Gillespie MD LAB BLOOD ORDERABLES Edite d Result - Final [facility] [place] [address] * eGFR (08/02/2024 7:10 AM CDT) eGFR [...] BLOOD ORDERABLES Final Result Performing Organization Address City/[facility]/ZIP Co de Phone Number [facility] [place] [address] * (ABNORMAL) IgG (08/02/2024 7:10 AM CDT) Immunoglobulin G 673(L) 700 - 1,600 mg/dL Blood 08/02/2024 7:10 AM CDT 08/02/2024 7:56 AM CDT Anita Gillespie MD LAB BLOOD ORDERABLES Final Result Performing Organization Address City/[facility]/ZIP Co de Phone Number [facility] [place] [address] * (ABNORMAL) Comprehensive metabolic panel (08/02/2024 7:10 AM CDT) Sodium 138 135 - 145 mmol/L Potassium, pl 4.7 3.3 - 4.9 mmol/L [facility] Chloride 108 97 - 110 mmol/L [facility] CO2 25 22 - 32 mmol/L [facility] Anion gap 5 2 - 15 mmol/L [facility] BUN 19 6 - 25 mg/dL [facility] Creatinine 1.07 0.80 - 1.30 mg/dL [facility] Glucose 115 70 - 199 mg/dL [facility] Comment: Interpretive Data Fasting glucose >/= 126 [...] 2022. Calcium 8.6 8.5 - 10.3 mg/dL [facility] Bilirubin, total 1.1 0.1 - 1.2 mg/dL [facility] Protein, pl 5.6(L) 6.5 - 8.5 g/dL [facility] Albumin 3.0(L) 3.5 - 5.0 g/dL [facility] Alk phos 261(H) 40 - 130 Units/L [facility] ALT 22 7 - 55 Units/L [facility] AST 32 10 - 50 Units/L [facility] Blood 08/02/2024 7:10 AM CDT 08/02/2024 7:27 AM CDT Anita Gillespie MD LAB BLOOD ORDERABLES Final Result Performing Organization Address City/[facility]/ZIP Co de Phone Number [facility] [place] [address] * (ABNORMAL) Lactate dehydrogenase (LD) (08/02/2024 7:10 AM CDT) Lactate dehydrogenase (LDH) 260(H) 100 - 250 Units/L Blood 08/02/2024 7:10 AM CDT 08/02/2024 7:27 AM CDT Anita Gillespie MD LAB BLOOD ORDERABLES Final Result [facility] Department of Laboratories [place], [place] [id number] documented in this encounter Visit Diagnoses Diagnosis 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) Hypogammaglobulinemia (HCC) Unspecified hypogammaglobulinemia documented in this encounter Care Teams Safety Engineer Relationship Specialty Start Date End Date Gene ColungaeDO [address] [place] [address] PCP - General Internal Medicine 08/02/24 Amber Montesinos, SHAILESH Earth Auger Operator Transplant 11/17/19 Jil Duncan MD Consulting Physician Infectious Diseases 01/10/20 Anita Gillespie MD Medical Oncologist/Fitness Coordinator Medical Oncology 10/07/20 Tabitha Hurley MD [address] [facility] [address] [place] [address] Consulting Physician Rheumatology 10/22/21 Massiel Gastelum MD [address] [place] [address] Consulting Physician Otolaryngology 08/27/22 documented as of this encounter
--- OUTSIDE RECORDS SUMMARY | 2024-10-28 06:03 | XMS_ITS | Encounter Summary ---
Author Organization [facility] Healthcare Address [address] [place] [address] Care Team Providers Care Casino Cashier Name Role Phone Amber Montesinos RN Unavailable [phone] Jil Duncan MD Unavailable [phone] Anita Gillespie MD Unavailable [phone] Tabitha Hurley MD Unavailable [phone] Massiel Gastelum MD Unavailable [phone] Unknown, Notinfile Primary Care Provider Unavail able Reason for Visit * Auth/Cert Specialty Diagnoses / Procedures Referred By Contac t Referred To Contact Diagnoses Chronic otitis media of both ears with effusion Chronic otitis media of both ears with effusion [H65.493] Procedures VA TYMPANOSTOMY GENERAL ANESTHESIA BILATERAL MYRINGOTOMY TUBE INSERTION Referral ID Status Reason Start Date Expiration Date Visits Re quested Visits Authorized [id number] 1 1 Encounter Details Date Type Department Care Team (Late st Contact Info) Description 04/28/2024 9:30 AM CDT - 04/28/2024 10:20 AM CDT Surgery [facility] Operating [facility] [address] [place] [address] Massiel Gastelum MD [address] [place] [address] BILATERAL MYRINGOTOMY TUBE INSERTION Surgery Details Date/Time Status Location OR Service Patient Class Case Cl ass Case Type Trauma Case? 04/28/2024 9:[address] [facility] CAM OR POD 4 K Otolaryngology Outpatient Elective Panel 1 Procedure LRB Anes Op Region Wound Class Comments BILATERAL MYRINGOTOMY TUBE INSERTION Bilateral General Ear Class II - Clean Contaminated REMOVAL MYRINGOTOMY TUBE Left General Ear Class I - Clean Surgeon Surgeon Role Service Panel Massiel Gastelum MD Primary Otolaryngolog y 1 Robel Chen MD Resident - Assisting Otolary ngology 1 Case Notes 04/27@1011 Per Holly via phone, [...] Dr. Singh requesting permission to start late CF/19@0954 Per Holly via case message, move case to 04/28 CF/19@0834 Per Holly via case message, Can you please depot this so I can rsc it to an earlier date? CF documented in this encounter Social History Tobacco [...] or isolatio n Never 02/29/2024 [facility] Utilities Answer Date Recorded In the past 12 months has [employer], gas, oil, or water company threatened [...] often do you attend chur ch or gnosticism services? 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 Gender Identity Not on file Sexual Orientation Straight 08/22/2021 9: 23 AM CDT documented as of this encounter Last Filed Vital Signs Vital Sign Reading Time Taken Comments Blood Pressure 115/79 04/28/2024 10:20 AM CDT Pulse 81 04/28/2024 10:20 AM CDT Temperature 36.7 ??C (98.1 ??F) 04/28/2024 9:58 AM CD T Respiratory Rate 17 04/28/2024 10:20 AM CDT Oxygen Saturation 99% 04/28/2024 10:20 AM CDT Inhaled Oxygen Concentration - - Weight 62.6 kg (138 lb) 04/21/2024 2:25 PM CDT Height 172.7 cm (5' 8 ) 04/21/2024 2:25 PM CDT Body Mass Index 20.98 04/21/2024 2:25 PM CDT documented in this encounter Discharge Instructions * Discharge Instructions* Rboel Chen MD - 04/27/2024 5:22 PM CDT [...] or Concerns? Michael Gastelum MD Nursing support: [phone] After-hours or weekends: [phone] (ask for ENT on-call) documented in this [...] and as needed if drainage recurs 04/28/2024 documented in this encounter Discharge Disposition Disposition [...] Preoperative Evaluation Record Evaluation type/location: TPAP from [facility] Planned procedure site: [facility] CAM OR (Pod 4) Date: 04/24/24 [...] and recurrent acute sinusitis. He is s/p [facility] inpatient hospitalization (02/17 - 02/25) for [...] lIVER TRANSPLANT IN 1998. Has F/u with [facility] Liver Transplant Team.) - liver. + Infectious disease (02/17 - 02/25: MSSA Bactermia, Pneumonia PCR positive for MSSA) - pneumonia andsepsis. Pertinent negatives: diabetes mellitus; thyroid disease; obesity (BMI >30) and rheumatological disease Comments: + Immunocompromised 02/18/2024 - 02/26/2024: Hospitalized at [facility] Acute respiratory failure with hypoxia (CMS/HCC) [...] to PNA) + previous transfusion (? 1998; 2018--no adverse reaction reported) + hard of hearing [...] provided by telephone and electronically sent via Infolinks. Patient verbalized understanding of instructions. Blood bank [...] organism, unspecified part of lung 02/18/2024 Shock (CMS/HCC) (HCC) 02/18/2024 Bicytopenia 02/18/2024 Hypocalcemia 02/18/2024 Hyponatremia 02/18/2024 Hypoalbuminemia 02/18/2024 CVID (common variable immunodeficiency) (HCC) 02/18/2024 Portal hypertension (CMS/HCC) (HCC) 02/18/2024 History of pulmonary embolus (PE) 02/18/2024 Subacute cough 11/29/2023 Edema of left lower extremity 10/11/2023 Parapneumonic effusion 10/11/2023 Acute respiratory failure with hypoxia (CMS/HCC) (HCC) 10/09/2023 Acute superficial DVT of left upper extremity 08/28/2023 Rhinovirus 08/27/2023 Hypocalcemia and hypomagnesemia 08/27/2023 Gram-negative bacteremia 08/24/2023 Macrocytic anemia 08/23/2023 Ansarca 08/23/2023 Jaundice 08/23/2023 Colitis 08/23/2023 Eustachian tube dysfunction, bilateral 06/02/2023 Subcutaneous nodule of right lower extremity 07/09/2022 Immunocompromised ([facility]) 05/13/2022 Chronic pansinusitis 02/17/2022 Muscle weakness Myalgia 10/08/2020 On antiviral therapy 03/11/2020 Elevated LFTs 02/15/2020 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 Immunocompromised patient ([facility]) 01/06/2019 Community acquired pneumonia 01/06/2019 Lymphadenopathy 01/06/2019 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 01/06/2019 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 ([facility]) 08/25/2017 History of liver transplant ([facility]/HCC) (HCC) 06/06/2014 Cytomegalovirus infection (HCC) 04/27/2014 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) 02/15/2014 Autoimmune hepatitis (CMS/HCC) (HCC) 05/18/2012 Hypogammaglobulinemia (HCC) 02/17/2010 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 Past Medical History: Diagnosis Date Cancer (CMS/HCC) (HCC) Chronic diarrhea CMV (cytomegalovirus infection) ([facility]) Community acquired pneumonia of right middle lobe [...] 03/03/1999 (Liver) D/C: ICD10: Z94.4 Center: [facility] ([place], [place]) traZODone (DESYREL) 50 mg tablet 01-19-2024 04/03/24 -- Anita Gillespie MD TAKE 1 TABLET BY MOUTH NIGHTLY Patient taking differently: Take 1 tablet (50 mg total) by mouth as needed for sleep ursodioL (ACTIGALL) 300 mg capsule 04/20/2024 07/27/23 -- David Pool MD Take 2 capsules (600 mg total) by mouth daily with dinner Notes: PA/Scripts P: [phone] F: [phone] Ongoing Comment Alex Daily RN 03/15/2024 7:21 AM 02/18/20NO INTERACTIONS FOR ADMISSION-LSOSA RN No interactilns 03/12/2020 JSCostantinou RN No interactions noted. 03/15/2020 Rosemarie RN No med interactions 03/25/2020 No severe interactions noted 12/20/2021 JSC RN 12/27/21 No severe interaction noted upon review Lesvia Conde FARM IMPLEMENT ENGINE MECHANIC 01/24/2022 No severe interactions or contraindications noted. JSC RN 02/29/2024 No severe interactions noted Mayda [...] Medication protocol when under care of a LEVER TENDER Planned anesthesia: General Team communication plan: LMA Induction: Induction: intravenous. Postoperative Plan: Postoperative administration opioids intended. No postoperative mechanical ventilation intended. Patient's planned disposition post procedure is Outpatient. No trial extubation planned. Informed Consent: Discussed plan with LEVER TENDER. Anesthesia plan and risks discussed with patient [...] Implant Name Type Inv. Item Serial No. Christmas Tree Farm Worker Lot No. LRB No. Used Action [employer] Bobbin 1.27mm 1.55mm Collar Button Tube Ventilation Fluoroplastic [id number] - [id number] [employer] Bobbin 1.27mm 1.55mm Collar Button Tube Ventilation Fluoroplastic [id number] [employer] [id number] Right 1 Implanted ESTIMATED BLOOD LOSS: 0 mL SPECIMENS: No specimens collected during this procedure. COMPLICATIONS: None. Massiel Gastelum MD Date: 04/28/2024 Time: 9:42 AM * Pre-Procedure Instructions - Astrid Phillips NP - 04/24/2024 2:02 PM CDT Center for Preoperative Assessment and Planning CPAP Clinic Location: [facility] The night before your surgery: * Do [...] going to be admitted after surgery at [facility], COVID testing may be performed on the day of surgery, even if you are up to date on your COVID-19 vaccine. * If having surgery at [facility], you may want to bring a credit card if you want to use our Mobile Pharmacy for your discharge medications. Mobile pharmacy is not available at [facility], the Orthopedic Center, or [facility]. Outpatient Surgery: * You must have [...] remove nail coverings, artificial nails and nail cymraes prior to the day of surgery. You should leave your valuables and any jewelry at home. No metal or piercings are allowed in the operating room. You should bring your insurance card, a photo ID (example: Valve Fitter's License) and a method of payment for [...] Chart. If you are having surgery at [facility], please arrive on the day of surgery [...] to [facility] by the followinglink: [email or web address] How To Prepare Your Skin For [...] Remove nail coverings, artificial nails and nail cymraes. Place clean linens on your bed the [...] questions, please call the CPAP Staff at [phone], Wednesday-Wednesday 8am-4:30pm. All patients should read the below section: Information on [facility] & the Orthopedic Center: Please view [email or web address] (Patient & Visitor Information) for additional details regarding Advanced Directive forms, AWARE, directions, parking information, lodging, Internet access, dining and more. For MyChart information, to activate account or password recovery, please go to [email or web address] or call [phone] (toll-free: [phone]), Wed- Wednesday 8am-5pm. Information for Suicide Prevention: National Suicide Prevention Lifeline (8-488- 671-JHWF (0878)) or call or text 635. Chat resources: [employer]. Surgery Times: For patients having surgery @ [facility], [facility] or [facility] ([facility]), if your surgeon's office has not notified you of your surgery time by NOON THE BUSINESS DAY BEFORE your surgery, please call [phone] and ask for your surgeon's office Dr Gastelum [phone] The Center for Preoperative Assessment & Planning [...] Planning Perioperative Nursing Note Telephone Preoperative Evaluation (BJ) - TELEPHONE ONLY, NO PHYSICAL EXAM Date: [...] Directive: Patient does not have advance directive Communication/Loss Prevention Operations Manager Needs Communication Needs: Glasses Assistive Devices/DME: Eyeglasses Hearing - Right Ear: Functional Hearing - Left Ear: Functional Discharge Planning Type of Residence: Private residence Living Arrangements: Parent Support Systems: Parent, Friends/neighbors Assistance Needed: his parents will be caring for him after procedure Patient expects to be discharged to:: Private residence RAW MILL OPERATOR NO documented in this encounter Plan of [...] via case message, move case to 04/28 [email or web address] Per Holly via case message, Can you [...] via case message, move case to 04/28 [email or web address] Per Holly via case message, Can you [...] Given 04/28/2024 10:21 AM CDT 500 mg ciprofloxacin (CILOXAN) 0.3 % ophthalmic solution As needed, Starting on Wed04/28/24 at 0941, Intra-Op Given 04/28/2024 9:41 AM CDT 5 drops HYDROmorphone (DILAUDID) injection 0.2 mg 0.2 mg, [...] AM CDT 1 patch Behind Left Ear sodium chloride 0.9% irrigation As needed, Starting on Wed04/28/24 at 0942, Intra-Op Given 04/28/2024 9:42 AM CDT 100 mL Surgical Site documented in this encounter Discontinued Medications Medication [...] Infusion - 0.9% Sodium Chloride 1 04/28/2024 diphenhydrAMINE (BENADRYL) 5 0 mg/mL injection 12.5 mg 1 04/28/2024 fentaNYL (SUBLIMAZE) preserv ative free injection 50 mcg 1 04/28/2024 Lactated Ringer's (LR) infusion 1 lidocaine (PF) (XYLOCAINE) 1 0 mg/mL (1 %) preservative free injection 2-10 mg 1 04/28/2024 meperidine (DEMEROL) preserv ative free injection 12.5 mg 1 04/28/2024 naloxone (NARCAN) 0.4 mg/mL injection 0.04-0.4 mg 1 04/28/2024 ondansetron (ZOFRAN) injection 4 mg 1 04/28 prochlorperazine (COMPAZINE) injection 5 mg 1 04/28/2024 sodium chloride 0.9% flush 0.5-20 mL 2 04/02 Discharge Count Last Ordered Date First Orde red Date DISCHARGE PATIENT 1 04/28/2024 documented in this encounter Care Teams Casino Cashier Relationship Specialty Start Date End Date Unknown, Notinfile PCP - General 04/26/24 08/01/24 Amber Montesinos, SHAILESH Senior Qualitative Researcher Transplant 11/17/19 Jil Duncan MD Consulting Physician Infectious Diseases 01/10/20 Anita Gillespie MD Medical Oncologist/Rfid Developer Medical Oncology 10/07/20 Tabitha Hurley MD [address] [place] [address] Consulting Physician Rheumatology 10/22/21 Massiel Gastelum MD [address] [place] [address] Consulting Physician Otolaryngology 08/27/22 documented as of this encounter
--- OUTSIDE RECORDS SUMMARY | 2024-10-28 06:03 | XMS_ITS | Encounter Summary ---
Author Organization [facility] Healthcare Address [address] [place] [address] Care Team Providers Care Trouble Shooting Mechanic Name Role Phone Amber Montesinos RN Unavailable [phone] Jil Duncan MD Unavailable [phone] Anita Gillespie MD Unavailable [phone] Tabitha Hurley MD Unavailable [phone] Massiel Gastelum MD Unavailable [phone] Guero Colunga DO Primary Care Provider [phone] Reason for Referral * MRI/CAT/PET Scan (Routine) - Closed Specialty Diagnoses / Procedures Referred By Contac t Referred To Contact Radiology Diagnoses Chronic cough History of liver transplant (CMS/HCC) (HCC) Recurrent pneumonia Procedures CT Chest WO Contrast Susan Zhou MD [address] [facility] [address] [place] [address] Phone: tel: fax: [address] [address] Referral ID Status Reason Start Date Expiration Date Visits Re quested Visits Authorized [id number] Closed 08/03/2024 09/02/2025 1 1 * Consultation (Routine) - Authorized Specialty Diagnoses / Procedures Referred By Contac t Referred To Contact Pulmonary Disease / Pulmonology Diagnoses Chronic cough History of liver transplant (CMS/HCC) (HCC) Recurrent pneumonia Susan Zohu MD [address] [place] [address] Phone: tel: fax: Александр Mcmillan MD [address] [facility] [place] [address] [place] [address] Phone: tel: fax: Referral ID Status Reason Start Date Expiration Date Visits Requested Visits Authorized [id number] Authorized Specialty Services Required 4 09/02/2025 99 99 Question Answer Please select the performing region: [facility] (All Locations) [167] # of visits: 1 Comments Any provider. S/p liver transplant with recurrent pneumonia and persistent cough Encounter Details Date Type Department Care Team (Late st Contact Info) Description 08/03/[address] [facility] Transplant Liver [address] [facility] [address] [phone] [place] [phone] Amber Montesinos, RN Social History Tobacco Use Types Packs/Day Years Used Date Smoking Tobacco: Never Smokeless Tobacco: Current Chew Comments:Chews tobacco on o ccasion Alcohol Use Standard Drinks/Week Comments Yes 0 (1 standard drink = 0.6 oz pur e alcohol) occassional OASIS D0700: Social Isolation Answer Da te Recorded Frequency of experiencing loneliness or isolatio n Never 02/29/2024 [facility] Utilities Answer Date Recorded In the past 12 months has e [employer], gas, oil, or water company threatened to [...] on file 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 If there is a change, please indicate the new insurance details below. If it is unchanged to what is already in [facility], simply warren each with N/A Primary Insurance: n/a Patient ID#: Group#: Insurance Phone#: Radiology Test Request Details Need pre-cert for: CT Chest WO Contrast Ordering physician: Susan Zhou CPT Code: 49619 CPT Code description: CT Chest WO Contrast ICD-10 Code: R05.3, J18.9, Z94.4 ICD-10 Code description: Chronic cough (R05.3) History of liver transplant (CMS/HCC) (HCC) (Z94.4) Recurrent pneumonia (J18.9) Patient is having test due to: s/p liver transplant with hx of recurrent pneumonia and chronic cough Complications patient is having: recurrent pneumonia and persistent cough Testing is to rule out the following: cause for recurrent cough and pneumonia When Scheduling, Obtain the following - What facility will test be done at: [facility] Facility's NPI: Facility's Tax ID: Facility's Address: Date(s) of test: 08/14/24 documented in this encounter Plan of Treatment Scheduled Procedures Name Priority Associated Diagnoses Date/Ti me COLONOSCOPY Encounter for screening for colorectal cancer in high risk patient Family history of rectal cancer Scheduled Referrals Name Type Priority Associated Diagnoses Order Schedule Ambulatory referral to Pulmonology Outpatient Referral Routine Chronic cough History of liver transplant (CMS/HCC) (HCC) Recurrent pneumonia Expected: 08/17/2024 (Approximate), Expires: 08/03/2025 documented as of this encounter Results * CT Chest WO [...] by: Gregg Johnson M.D. Susan Zhou MD IM CT PROCEDURES Final Result documented in this encounter Visit Diagnoses Diagnosis Chronic cough- Primary Cough History of liver transplant (CMS/HCC) (HCC) Liver replaced by transplant Recurrent pneumonia Pneumonia, organism unspecified Chronic cough Cough History of liver transplant (CMS/HCC) (HCC) Liver replaced by transplant Recurrent pneumonia Pneumonia, organism unspecified documented in this encounter Care Teams Trouble Shooting Mechanic Relationship Specialty Start Date End Date Guero Colunga DO [address] [place], [place] [id number] PCP - General Internal Medicine 08/02/24 Amber Montesinos, RN Sales Project Engineer Transplant 11/17/19 Jil Duncan MD Consulting Physician Infectious Diseases 01/10/20 Anita Gillespie MD Medical Oncologist/Press Operator Automatic Medical Oncology 10/07/20 Tabitha Hurley MD [address] [place] [address] Consulting Physician Rheumatology 10/22/21 Massiel Gastelum MD [address] [place] [address] Consulting Physician Otolaryngology 08/27/22 documented as of this encounter
--- OUTSIDE RECORDS SUMMARY | 2024-10-28 06:03 | XMS_ITS | Encounter Summary ---
Author Organization [facility] Healthcare Address [address] [place] [address] Care Team Providers Care Factory Helper Name Role Phone Amber Montesinos RN Unavailable [phone] Jil Duncan MD Unavailable [phone] Anita Gillespie MD Unavailable [phone] Tabitha Hurley MD Unavailable [phone] Massiel Gastelum MD Unavailable [phone] Beka Nick MD Primary Care Provider [phone] Encounter Details Date Type Department Care Team (Latest Contact Info) Description 03/20/2024 11:27 AM CDT - 03/20/2024 11:59 PM CDT Hospital Encounter [facility] [place] [address] 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[facility]) Discharge Disposition: Discharge to home or self care Social History Tobacco Use Types Packs/Day Years Used Date Smoking Tobacco: Never Smokeless Tobacco: Current Chew Alcohol Use Standard Drinks/Week Comments Yes 0 (1 standard drink = 0.6 oz pur e alcohol) occassional OASIS D0700: Social Isolation Answer Da te Recorded Frequency of experiencing loneliness or isolatio n Never 02/29/2024 [facility] Utilities Answer Date Recorded In the past 12 months has [employer], [employer], or [employer] threatened to shut off services in your [...] any clubs o r organizations such as mandaeism groups, unions, fraternal or athletic groups, or [...] on file 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 ??Abdominal surgical clips. Clear lungs without new focal consolidation, pleural effusion, or pneumothorax. ??The heart size is stable. Dictated by: Tyrell Ann MD The radiology attending physician has personally reviewed this study, and had reviewed and/or edited this written report and agrees with it. Electronically signed by: Magdi Knutson M.D. Narrative 03/20/2024 1:01 PM CDT EXAMINATION: 2 view chest radiograph Procedure Note Magdi Knutson MD - 03/20/2024 EXAMINATION: 2 view chest radiograph IMPRESSION: The current study is compared with the prior radiograph dated 02/24/2024. Abdominal surgical clips. Clear lungs without new focal consolidation, pleural effusion, or pneumothorax. The heart size is stable. Dictated by: Tyrell Ann MD The radiology attending physician has personally reviewed this study, and had reviewed and/or edited this written report and agrees with it. Electronically signed by: Magdi Knutson M.D. 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 documented in this encounter Care Teams Factory Helper Relationship Specialty Start Date End Date Beka Nick MD [address] [place] [address] PCP - General Family Practice 05/31/23 04/25/24 Amber Montesinos, SHAILESH Bar Host Transplant 11/17/19 Jil Duncan MD Consulting Physician Infectious Diseases 01/10/20 Anita Gillespie MD Medical Oncologist/Petroleum Terminal Plant Operator Medical Oncology 10/07/20 Tabitha Hurley MD [address] [facility] [address] [place] [address] Consulting Physician Rheumatology 10/22/21 Massiel Gastelum MD [address] [place] [address] Consulting Physician Otolaryngology 08/27/22 documented as of this encounter
--- OUTSIDE RECORDS SUMMARY | 2024-10-28 06:03 | XMS_ITS | Encounter Summary ---
Author Organization [facility] Address [address] [place] [address] Phone Care Team Providers Care Clerk Checker Name Role Phone Amber Montesinos RN Unavailable [phone] Jil Duncan MD Unavailable [phone] Anita Gillespie MD Unavailable [phone] Tabitha Hurley MD Unavailable [phone] Massiel Gastelum MD Unavailable [phone] Beka Nick MD Primary Care Provider [phone] Encounter Details Date Type Department Care Team (Late st Contact Info) Description 03/20/2024 11:00 AM CDT Lab [facility] [address] [facility] 7th [place] [address] [place] [address] Social History Tobacco Use Types Packs/Day Years Used Date Smoking Tobacco: Never Smokeless Tobacco: Current Chew Alcohol Use Standard Drinks/Week Comments Yes 0 (1 standard drink = 0.6 oz pur e alcohol) occassional OASIS D0700: Social Isolation Answer Da te Recorded Frequency of experiencing loneliness or isolatio n Never 02/29/2024 [facility] Utilities Answer Date Recorded In the [...] often do you attend chur ch or anabaptism services? 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 Gender Identity Not on file Sexual Orientation Straight 08/22/2021 9: 23 AM CDT documented as of this encounter Plan of Treatment Scheduled Procedures Name Priority Associated Diagnoses Date/Ti me COLONOSCOPY Encounter for screening for colorectal cancer in high risk patient Family history of rectal cancer documented as of this encounter Visit Diagnoses Not on filedocumented in this encounter Care Teams Clerk Checker Relationship Specialty Start Date End Date Beka Nick MD [address] [place] [address] PCP - General Family Practice 05/31/23 04/25/24 Amber Montesinos RN Lace Burn Out Tender Transplant 11/17/19 Jil Duncan MD Consulting Physician Infectious Diseases 01/10/20 Anita Gillespie MD Medical Oncologist/Engineering Associate Medical Oncology 10/07/20 Tabitha Hurley MD [address] [place] [address] Consulting Physician Rheumatology 10/22/21 Massiel Gastelum MD [address] [place] [address] Consulting Physician Otolaryngology 08/27/22 documented as of this encounter
--- OUTSIDE RECORDS SUMMARY | 2024-10-28 06:03 | XMS_ITS | Encounter Summary ---
Author Organization [facility] Healthcare Address [address] [place] [address] Care Team Providers Care Biotechnician Name Role Phone Amber Montesinos RN Unavailable [phone] Jil Duncan MD Unavailable [phone] Anita Gillespie MD Unavailable [phone] Tabitha Hurley MD Unavailable [phone] Massiel Gastelum MD Unavailable [phone] Beka Nick MD Primary Care Provider [phone] Encounter Details Date Type Department Care Team (Late st Contact Info) Description 03/14/2024 Home Care Visit [facility] [address] [address] [address] [place] [address] Alex Daily, SHAILESH CASE COMMUNICATION Social History Tobacco Use Types Packs/Day Years Used Date Smoking Tobacco: Never Smokeless Tobacco: Current Chew Alcohol Use Standard Drinks/Week Comments Yes 0 (1 standard drink = 0.6 oz pur e alcohol) occassional OASIS D0700: Social Isolation Answer Da te Recorded Frequency of experiencing loneliness or isolatio n Never 02/29/2024 [facility] Utilities Answer Date Recorded In [...] often do you attend chur ch or worship services? 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 Gender Identity Not on file Sexual Orientation Straight 08/22/2021 9: 23 AM CDT documented as of this encounter Plan of Treatment Scheduled Procedures Name Priority Associated Diagnoses Date/Ti me COLONOSCOPY Encounter for screening for colorectal cancer in high risk patient Family history of rectal cancer documented as of this encounter Visit Diagnoses Not on filedocumented in this encounter Care Teams Biotechnician Relationship Specialty Start Date End Date Beka Nick MD [address] [place] [address] PCP - General Family Practice 05/31/23 04/25/24 Amber Montesinos, SHAILESH Machine Programmer Transplant 11/17/19 Jil Duncan MD Consulting Physician Infectious Diseases 01/10/20 Anita Gillespie MD Medical Oncologist/Loop Tender Medical Oncology 10/07/20 Tabitha Hurley MD [address] [place] [address] Consulting Physician Rheumatology 10/22/21 Massiel Gastelum MD [address] [place] [address] Consulting Physician Otolaryngology 08/27/22 documented as of this encounter
--- OUTSIDE RECORDS SUMMARY | 2024-10-28 06:03 | XMS_ITS | Encounter Summary ---
Author Organization [facility] Address [address] [place] [address] Phone Care Team Providers Care Perinatal Educator Name Role Phone Amber Montesinos RN Unavailable [phone] Jil Duncan MD Unavailable [phone] Anita Gillespie MD Unavailable [phone] Tabitha Hurley MD Unavailable [phone] Massiel Gastelum MD Unavailable [phone] Beka Nick MD Primary Care Provider [phone] Reason for Visit * Reason Comments Follow-up Encounter Details Date Type Department Care Team (Latest Contact Info) Description 03/20/2024 10:20 AM CDT Office Visit [facility] Infectious Diseases [address] [place] [address] [address] [place] [address] Lisandra Auguste, AIDEN [address] [place] [address] 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HCC) (Primary Dx); Pneumonia of left lung due to infectious organism, unspecified part of lung; Bacteremia; History of splenectomy Social History Tobacco Use Types Packs/Day Years Used Date Smoking Tobacco: Never Smokeless Tobacco: Current Chew Alcohol Use Standard Drinks/Week Comments Yes 0 (1 standard drink = 0.6 oz pur e alcohol) occassional OASIS D0700: Social Isolation Answer Da te Recorded Frequency of experiencing loneliness or isolatio n Never 02/29/2024 [facility] Utilities Answer Date Recorded [...] often do you attend chur ch or voodoo services? 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 Gender Identity Not on file Sexual Orientation Straight 08/22/2021 9: 23 AM CDT documented as of this encounter Last Filed Vital Signs Vital Sign Reading Time Taken Comments Blood Pressure 115/75 03/20/2024 10:13 AM CDT Pulse 76 03/20/2024 10:13 AM CDT Temperature 36.8 ??C (98.3 ??F) 03/20/2024 10:13 AM C DT Respiratory Rate - - Oxygen Saturation - - Inhaled Oxygen Concentration - - Weight 58.1 kg (128 lb) 03/20/2024 10:13 AM CDT Height 172 cm (5' 7.72 ) 03/20/2024 10:13 AM CDT Body Mass Index 19.63 03/20/2024 10:13 AM CDT documented in this encounter Progress Notes * Lisandra Auguste, AIDEN - 03/20/2024 10:20 AM CDT Infectious Diseases Return Visit Patient Name: Beka Nichols [facility] [[email or web address] INFECTIOUS DISEASES [address] [place] [id number] Subjective Chief complaint of CMV, recent MSSA [...] [place] [address]. He was also noted to have lymphadenopathy [...] starting 06/20/22. He was admitted to [facility] 07/09-07/12/22 due to persistent CMV viremia while on marabovir along with 2 week history of cough, fevers, chills, fatigue/malaise. RVP positive for rhinovirus and adenovirus. CMV resistance testing obtained which showed resistance to maribavir. This was discontinued on 07/16/23and he was restarted on Valcyte 900 mg PO BID. CMV levels at OSH on 11/14/22 were 32094. Reached out to patient and it seemed [...] distention, jaundice, and edema. Admitted to [facility] and found to have E coli bacteremia w/ imaging concerning for enterocolitis. CMV PCR +2980. Completed 2 weeks of ciprofloxacin and IV foscarnet. He was then placed on valcyte 900 mg PO BID and letermovir 480 mg PO daily. CMV mutation testing shows resistance to maribavir. Readmitted to [facility] 10/2023 with cough and back pain and found to have exudative pleural effusion. Aspergillus galactomannan on 10/04/23 was 0.67, repeat on 10/07/23 was negative. CMV PCR 121. Chest tubeplace w/ fungal culture negative. Given empiric course of Augmentin and discharged to resume letermovir and valganciclovir. Admitted to [facility] 01/2024 and found to have MSSA bacteremia along with left lower lobe cavitary pneumonia. RVP also positive for rhino/enterovirus. TTE w/o vegetations. He was d/c on IV cefazolin x 6 weeks but had PICC issues so this was switched to dalbavancin x 2 doses with initial dose on 03/14/24. Interval History: Patient presents to ID clinic today for post hospital follow up. He is accompanied by his mother. He overall feels well and has had no issues since receiving dalbavancin infusion last week. He still has an occasional cough but has not had any fevers or chills. No jaundice or abdominal pain. No lower extremity edema. Remains on letermovir and valgancyclovir for CMV. Continues to have chronic diarrhea that is unchanged. He will be getting labs later today for the transplant team. ROS: Review of Systems Constitutional: Negative for activity change, appetite change, chills, diaphoresis, fatigue, fever and unexpected weight change. Eyes: Negative for photophobia, redness and visual disturbance. Respiratory: Positive for cough and shortness of breath (w/ exertion, improvoing). Cardiovascular: Negative for leg swelling. Gastrointestinal: Positive for diarrhea (chronic, unchanged). 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 Cytomegalovirus (CMV) viremia ([facility]) ([facility]) Elevated LFTs On antiviral therapy Myalgia Muscle weakness Chronic pansinusitis Immunocompromised (HCC) Subcutaneous nodule of right lower extremity Eustachian tube dysfunction, bilateral Macrocytic anemia Ansarca Gram-negative bacteremia Rhinovirus Hypocalcemia and hypomagnesemia Jaundice Acute superficial DVT of left upper extremity Colitis Acute respiratory failure with hypoxia ([facility]/HCC) (HCC) Edema of left lower extremity Parapneumonic effusion Subacute cough Pneumonia of left lung due to infectious organism, unspecified part of lung Shock ([facility]/HCC) ([facility]) Bicytopenia Hypocalcemia Hyponatremia Hypoalbuminemia CVID (common variable immunodeficiency) (HCC) Portal hypertension (CMS/HCC) (HCC) History of pulmonary embolus (PE) Bacteremia History of splenectomy Allergies: Patient has no known allergies. HOME MEDICATIONS : Cutaquig 16.5 % solution furosemide (LASIX) 20 mg tablet furosemide (LASIX) 20 mg tablet guaiFENesin ER (MUCINEX) 600 mg 12 hr tablet letermovir (PREVYMIS) 480 mg tablet magnesium oxide (MAG-OX) 400 mg (241.3 mg elemental magnesium) tablet predniSONE (DELTASONE) 10 mg tablet sodium chloride 0.9% injection spironolactone (ALDACTONE) 50 mg tablet spironolactone (ALDACTONE) 50 mg tablet tacrolimus 0.5 mg immediate-release capsule traZODone (DESYREL) 50 mg tablet triamcinolone (KENALOG) 0.1 % cream ursodioL (ACTIGALL) 300 mg capsule Physical Exam Constitutional: General: He is not in acute distress. Appearance: He is not toxic-appearing. HENT: Head: Normocephalic and atraumatic. Eyes: Extraocular Movements: Extraocular movements intact. Cardiovascular: Rate and Rhythm: Normal rate and regular rhythm. Heart sounds: Normal heart sounds. No murmur heard. Pulmonary: Effort: Pulmonary effort is normal. No respiratory distress. Breath sounds: Examination of the left-lower field reveals decreased breath sounds. Decreased breath sounds present. Musculoskeletal: General: No swelling. Skin: General: Skin [...] Laboratory: Lab Results Component Value Date WBC 4.4 03/20/2024 HGB 13.4 (L) 03/20/2024 HCT 39.1 (L) 03/20/2024 MCV 116.0 (H) 03/20/2024 LABPLAT 206 03/20/2024 Lab Results Component Value Date NEUTROABS 1.9 03/20/2024 Lab Results Component Value Date GLUCOSE 94 03/20/2024 CALCIUM 9.3 03/20/2024 SODIUM 139 03/20/2024 POTASSIUM 4.7 03/20/2024 CO2 19 (L) 03/20/2024 CHLORIDE 112 (H) 03/20/2024 BUNSER 22 03/20/2024 CREATININE 1.36 (H) 03/20/2024 Estimated Creatinine Clearance: 64.7 mL/min (A) (by Cockcroft-Gault based on SCr of 1.36 mg/dL (H)). Lab Results Component Value Date ALT 26 03/20/2024 AST 47 03/20/2024 ALKPHOS 243 (H) 03/20/2024 BILITOT 1.7 (H) 03/20/2024 Assessment/Plan 29 y.o. male with history [...] admissionfor MSSA bacteremia and LLL cavitary pneumonia. Pneumonia of left lung due to infectious organism, unspecified part of lung - Improving cough and shortness of breath, no fevers or chills. Overall feels better. Lung sounds slightly diminished to LLL - Repeat chest X-ray today Bacteremia - MSSA bacteremia, no vegetations on echo. D/c on IV cefazolin but now on dalbavancin due to PICC issues. Received dose of dalbavancin on 03/14, scheduled for 2nd dose on 03/28 at [facility] infusion center in [place], [place] to complete planned 6 weeks of therapy 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HCC) - Repeat CMV PCR today along with CBC and CMP - Continue letermovir and valganciclovir History of splenectomy - PCV20 today - Also needs meningococcal conjugate and men B vaccines (will give at future visit). - I do not see any documentation for HiB vaccine, will forward note to BMT team also Follow up: - Return in about 3 months (around 06/20/2024). Visit Diagnosis: 1. 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HCC) 2. Pneumonia of left lung due to infectious organism, unspecified part of lung 3. Bacteremia 4. History of splenectomy Lisandra Ramirez the Nurse Practitioner, have reviewed and examined this patient with thesupervising MD present in the office suite, Dr. Duncan. Cosigned by Jil Duncan MD at 03/22/2024 2:40 PM CDT Associated attestation - Jil Duncan MD - 03/22/2024 2:40 PM CDT I have seen and examined the patient. I agree with the findings and plan of care as documented in the CYLINDER DIE MACHINE HELPER's note. My total encounter time on 03/20/2024 was 35 minutes which was spent in the activities documented in the note. This includes time spent prior to the visit and after the visit in direct care of the patient. This time does not include time spent in any separately reportable services. documented in this encounter Miscellaneous Notes * Assessment & Plan Note - Lisandra Auguste NP - 03/21/2024 2:28 PM CDT Associated Problem(s): History of splenectomy - PCV20 today - Also needs meningococcal conjugate and men B vaccines (will give at future visit). - I do not see any documentation for HiB vaccine, will forward note to BMT team also * Assessment & Plan Note - Lisandra Auguste NP - 03/21/2024 2:27 PM CDT Associated Problem(s): 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HCC) - Repeat CMV PCR today along with CBC and CMP - Continue letermovir and valganciclovir * Assessment & Plan Note - Lisandra Auguste NP - 03/21/2024 2:26 PM CDT Associated Problem(s): Bacteremia - MSSA bacteremia, no vegetations on echo. D/c on IV cefazolin but now on dalbavancin due to PICC issues. Received dose of dalbavancin on 03/14, scheduled for 2nd dose on 03/28 at [facility] infusion center in [place], [place] to complete planned 6 weeks of therapy * Assessment & Plan Note - Lisandra Auguste NP - 03/21/2024 2:25 PM CDT Associated Problem(s): Pneumonia of left lung due to infectious organism, unspecified part of lung - Improving cough and shortness of breath, no fevers or chills. Overall feels better. Lung sounds slightly diminished to LLL - Repeat chest X-ray today documented in this encounter Plan of Treatment Scheduled Procedures Name Priority Associated Diagnoses Date/Ti me COLONOSCOPY Encounter for screening for colorectal cancer in high risk patient Family history of rectal cancer documented as of this encounter Results * X-ray chest 2 [...] it. Electronically signed by: Magdi Knutson M.D. Lisandra Auguste CYLINDER DIE MACHINE HELPER IMG XR PROCEDURES Final R esult * (ABNORMAL) CBC with auto differential (03/20/2024 11:21 AM CDT) WBC 4.4 3.8 - 9.8 K/cumm Comment:Testing performed by : [facility], [address] [place] [phone] Hgb 13.4(L) 13.8 - 17.2 g/dL CERNER BJ Comment:Testing performed by : [facility], [address] [place] [phone] Hct 39.1(L) 40.7 - 50.3 % CERNER BJ Comment:Testing performed by : [facility], [address] [place] [phone] Plt 206 140 - 440 K/cumm CERNER BJ Comment:Testing performed by : [address] [address] MPV 8.7 6.8 - 10.4 fL CERNER BJ Comment:Testing performed by : [address] [address] RBC 3.37(L) 4.50 - 5.70 M/cumm CERNER BJ Comment:Testing performed by : [address] [phone] MCV 116.0(H) 80.0 - 97.6 fL BROOKE BUTCHER Comment:Testing performed by : [facility], [address] [place] [phone] MCH 39.8(H) 26.7 - 33.7 pg BROOKE BUTCHER Comment:Testing performed by : [facility], [address] [place] [phone] MCHC 34.3 32.7 - 35.5 g/dL BROOKE BUTCHER Comment:Testing performed by : [facility], [address] [place] [phone] RDW CV 17.8(H) 11.8 - 14.6 % [facility] Comment:Testing performed by : [facility], [address] [place] [phone] NRBC abs 0.00 0.00 - 0.01 K/cumm [facility] Comment:Testing performed by : [facility], [address] [place] [phone] Blood 03/20/2024 11:2 1 AM CDT 03/20/2024 11:23 AM CDT us Lisandra Auguste NP LAB BLOOD ORDERABLES Chata cuadra Result [facility] Department [place] [address] * (ABNORMAL) Cytomegalovirus (CMV) DNA PCR, quantitative Blood (03/20/2024 11:21 AM CDT) CMV DNA Detected( A) [facility] Comment: Interpretive Data: The quantifiable range of this assay is 34 IUnits/mL to 10,000,000 IUnits/mL (1.53 log IUnits/mL to 7.0 log IUnits/mL). Testing was performed by the NIA 6800 CMV Test ([employer] Testing performed at [facility]. Current interpretive data was last revised on 2021. CMV DNA IU/mL 100 IUnits/mL [facility] CMV DNA log IU/mL 2.00 log IUnits/mL [facility]KE [facility] Blood 03/20/2024 11:2 1 AM CDT 03/20/2024 12:24 PM CDT Lisandra Auguste CYLINDER DIE MACHINE HELPER LAB MICROBIOLOGY - GENERA L ORDERABLES Final Result [facility] [place] [address] [facility] documented in this encounter Visit Diagnoses Diagnosis 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 Pneumonia of left lung due to infectious organism, unspecified part of lung Bacteremia History of splenectomy Other acquired absence of organ 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[facility]) Cytomegaloviral disease documented in this encounter Orders Immunization/Injection Count Last Ordered Date First Ordered Date PNEUMOCOCCAL CONJUGATE VACCI NE 20 VALENT IM 1 03/20/2024 documented in this encounter Care Teams Perinatal Educator Relationship Specialty Start Date End Date Beka Nick MD [address] [place] [address] PCP - General Family Practice 05/31/23 04/25/24 Amber Montesinos, SHAILESH Ramp Flight Attendant Transplant 11/17/19 Jil Duncan MD Consulting Physician Infectious Diseases 01/10/20 Anita Gillespie MD Medical Oncologist/Account Assistant Medical Oncology 10/07/20 Tabitha Hurley MD [address] [place] [address] Consulting Physician Rheumatology 10/22/21 Massiel Gastelum MD [address] [place] [address] Consulting Physician Otolaryngology 08/27/22 documented as of this encounter
--- OUTSIDE RECORDS SUMMARY | 2024-10-28 06:03 | XMS_ITS | Encounter Summary ---
Author Organization [facility] Healthcare Address [address] [place] [address] Care Team Providers Care Kitchen Hand Name Role Phone Amber Montesinos RN Unavailable [phone] Jil Duncan MD Unavailable [phone] Anita Gillespie MD Unavailable [phone] Tabitha Hurley MD Unavailable [phone] Massiel Gastelum MD Unavailable [phone] Guero Colunga DO Primary Care Provider [phone] Encounter Details Date Type Department Care Team (Latest Contact Info) Description 08/02/2024 9:23 AM CDT - 08/02/2024 11:59 PM CDT Hospital Encounter [facility] [address] [place], [place] [id number] Susan Zhou MD [address] [facility] [address] [place] [address] History of liver transplant (CMS/HCC) (HCC); Chronic [...] loneliness or isolatio n Never 02/29/2024 [facility] Utilities Answer Date Recorded In the [...] often do you attend chur ch or confucianist services? 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 Gender Identity Not on file Sexual Orientation [...] Scheduled Procedures Name Priority Associated Diagnoses Date/Ti nc COLONOSCOPY Encounter for screening for colorectal cancer in high risk patient Family history of rectal cancer documented as of this encounter Procedures Procedure Name Priority Date/Time Associated Diagnosis Comments XR CHEST PA LATERAL 2 VIEWS Schedule Routine, Read Routine (OP Routine) 08/02/2024 9:34 AM CDT History of liver transplant (CMS/HCC) (HCC) Chronic cough documented in this encounter Results [...] Diagnoses Diagnosis History of liver transplant (CMS/HCC) (HCC) Liver replaced by transplant Chronic cough Cough documented in this encounter Care Teams Kitchen Hand Relationship Specialty Start Date End Date Guero Colunga DO [address] [place] [address] PCP - General Internal Medicine 08/02/24 Amber Montesinos, SHAILESH Marketing Automation Manager Transplant 11/17/19 Jil Duncan MD Consulting Physician Infectious Diseases 01/10/20 Anita Gillespie MD Medical Oncologist/Crepe Sole Wire Brusher Medical Oncology 10/07/20 Tabitha Hurley MD [address] [place] [address] Consulting Physician Rheumatology 10/22/21 Massiel Gastelum MD [address] [place] [address] Consulting Physician Otolaryngology 08/27/22 documented as of this encounter
--- OUTSIDE RECORDS SUMMARY | 2024-10-28 06:03 | XMS_ITS | Encounter Summary ---
Author Organization [facility] of [facility] Address [address] [place] [address] Phone Care Team Providers Care Acid Leveler Name Role Phone Amber Montesinos RN Unavailable [phone] Jil Duncan MD Unavailable [phone] Anita Gillespie MD Unavailable [phone] Tabitha Hurley MD Unavailable [phone] Massiel Gastelum MD Unavailable [phone] Unknown, Notinfile Primary Care Provider Unavail able Guero Colunga DO Primary Care Provider [phone] Encounter Details Date Type Department Care Team (Late st Contact Info) Description 06/05/2024 Orders Only [facility] ENT [address] [facility] [address] [facility] [address] [place] [address] Massiel Gastelum MD [address] [facility] [address] [place] [address] Social History Tobacco Use Types Packs/Day Years Used Date Smoking Tobacco: Never Smokeless Tobacco: Current Chew Comments:Chews tobacco on o ccasion Alcohol Use Standard Drinks/Week Comments Yes 0 (1 standard drink = 0.6 oz pur e alcohol) occassional OASIS D0700: Social Isolation Answer Da te Recorded Frequency of experiencing loneliness or isolatio n Never 02/29/2024 [facility] Utilities Answer Date Recorded In the [...] often do you attend chur ch or christian services? 1 to 4 times per year 02/23/2024 Do you belong to any clubs o r organizations such as yarsanism groups, unions, fraternal or athletic groups, or [...] on file Legal Sex Male 6:28 AM COMPUTER NETWORK SUPPORT SPECIALIST Gender Identity Not on file Sexual Orientation Straight 08/22/2021 9: 23 AM CDT documented as of this encounter Plan of Treatment Scheduled Procedures Name Priority Associated Diagnoses Date/Ti me COLONOSCOPY Encounter for screening for colorectal cancer in high risk patient Family history of rectal cancer documented as of this encounter Visit Diagnoses Not on filedocumented in this encounter Care Teams Acid Leveler Relationship Specialty Start Date End Date Unknown, Notinfile PCP - General 04/26/24 08/01/24 Guero Colunga DO [address] [facility] [address] [address] PCP - General Internal Medicine 08/02/24 Amber Montesinos, SHAILESH Pack Train Driver Transplant 11/17/19 Jil Duncan MD Consulting Physician Infectious Diseases 01/10/20 Anita Gillespie MD Medical Oncologist/Property Specialist Medical Oncology 10/07/20 Tabitha Hurley MD [address] [facility] [address] [place], [place] [id number] Consulting Physician Rheumatology 10/22/21 Massiel Gastelum MD [address] [place] [address] Consulting Physician Otolaryngology 08/27/22 documented as of this encounter
--- OUTSIDE RECORDS SUMMARY | 2024-10-28 06:03 | XMS_ITS | Encounter Summary ---
Author Organization [facility] of [facility] Address [address] [place] [address] Phone Care Team Providers Care Assessment Counselor Name Role Phone Amber Montesinos RN Unavailable [phone] Jil Duncan MD Unavailable [phone] Anita Gillespie MD Unavailable [phone] Tabitha Hurley MD Unavailable [phone] Massiel Gastelum MD Unavailable [phone] Guero Colunga DO Primary Care Provider [phone] Encounter Details Date Type Department Care Team (Latest Contact Info) Description 08/02/2024 10:20 AM CDT Procedure visit [facility] Otolaryngology [facility] 11th [place] [address] [place] [address] Leyla Sorensen Au.D. [address] [place] [address] Mixed conductive and sensorineural hearing loss of both ears (Primary Dx) Social History Tobacco Use Types Packs/Day Years Used Date Smoking Tobacco: Never Smokeless Tobacco: Current Chew Comments:Chews tobacco on o ccasion Alcohol Use Standard Drinks/Week Comments Yes 0 (1 standard drink = 0.6 oz pur e alcohol) occassional OASIS D0700: Social Isolation Answer Da te Recorded Frequency of experiencing loneliness or isolatio n Never 02/29/2024 [facility] Utilities Answer Date Recorded [...] often do you attend chur ch or evangelical services? 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 - 08/02/2024 10:20 AM CDT Procedures Juju Wright, CCC-A PATIENT: Beka Nichols : 1995 TYPE OF SERVICE: Audiologic Evaluation DATE OF SERVICE: 08/02/2024 Referral Source: Massiel Gastelum,* PATIENT REPORTS: Patient presents with a chief complaint of hearing loss. He has a history of sinus issues and Eustachian tube dysfunction. He has been followed by Dr. Gastelum. He had bilateral PE tubes placed in April.The patient reports hearing is muffled in both ears. He particularly notes difficulty hearing when other are talking from a distance. Associated Symptoms: Tinnitus: Yes bilateral, non-bothersome Otalgia: No Aural pressure: No Drainge: No Noise exposure: Yes machinery Otosurgery: Yes Both, PE tubes Family history: No Previous hearing aid use: No TESTS PERFORMED: See: basic comprehensive audiometry, tympanometry ASSESSMENT: Otoscopy: Right ear - clear canal Left ear - clear canal Pure tone audiometry was performed and revealed: Bilateral mixed hearing loss (MHL) with the following configuration: slight to mild 250-1000 Hz; rising to WNL 3672-8962 Hz Speech recognition thresholds test (SRT) was performed: Results are in agreement with pure tone average (AUTOMOTIVE SERVICE ADVISOR) Word recognition testing (WRS) was performed at an elevated, yet intelligible level with an abbreviated protocol using the Auditec recording of the NU-6 spoken by a male speaker: Right ear - normal ability Left ear - normal ability Tympanometry was performed and revealed: Both ear - Static Compliance: flat / no peak Middle Ear Pressure: flat / no peak Ear Canal Volume: large Tympanometry consistent with patent PE tubes bilaterally. The results were reviewed with the patient and any questions were answered. He will follow-up with Dr. Gastelum. PLAN/RECOMMENDATIONS: Copy of audiogram and report sent to Massiel Gastelum,* Retest post medical management/12 months / PRN Hearing assistive technology (HAT), if needed Hearing protection in noise documented in this encounter Plan of Treatment Scheduled Procedures Name Priority Associated Diagnoses Date/Ti me COLONOSCOPY Encounter for screening for colorectal cancer in high risk patient Family history of rectal cancer documented as of this encounter Procedures Procedure Name Priority Date/Time Associated Diagnosis Comments AUDBASE RESULTS 08/02/2024 10:02 AM CDT documented in this encounter Results * AudBase Results (08/02/2024 10:02 AM CDT) us Provider Scanning AUDIOLOGY SERVICES ORDERABLES Final Result documented in this encounter Visit Diagnoses Diagnosis Mixed conductive and sensorineural hearing loss of both ears- Primary documented in this encounter Care Teams Assessment Counselor Relationship Specialty Start Date End Date Guero Colunga DO [address] [address] PCP - General Internal Medicine 08/02/24 Amber Montesinos, SHAILESH Network Relay Tester Transplant 11/17/19 Jil Dunacn MD Consulting Physician Infectious Diseases 01/10/20 Anita Gillespie MD Medical Oncologist/Bonderizer Operator Medical Oncology 10/07/20 Tabitha Hurley MD [address] [place] [address] Consulting Physician Rheumatology 10/22/21 Massiel Gastelum MD [address] [place] [address] Consulting Physician Otolaryngology 08/27/22 documented as of this encounter
--- OUTSIDE RECORDS SUMMARY | 2024-10-28 06:03 | XMS_ITS | Encounter Summary ---
Author Organization [facility] Address [address] [place] [address] Phone Care Team Providers Care Vice President Of Instruction Name Role Phone Amber Montesinos RN Unavailable [phone] Jil Duncan MD Unavailable [phone] Anita Gillespie MD Unavailable [phone] Tabitha Hurley MD Unavailable [phone] Massiel Gastelum MD Unavailable [phone] Beka Nick MD Primary Care Provider [phone] Reason for Visit * Reason Onset Date Comments OPAT 03/23/2024 Encounter Details Date Type Department Care Team (Late st Contact Info) Description 03/23/2024 Telephone [facility] Infectious Diseases [address] [place] [address] Ny Griffin OPAT Social History Tobacco Use Types Packs/Day Years Used Date Smoking Tobacco: Never Smokeless Tobacco: Current Chew Alcohol Use Standard Drinks/Week Comments Yes 0 (1 standard drink = 0.6 oz pur e alcohol) occassional OASIS D0700: Social Isolation Answer Da te Recorded Frequency of experiencing loneliness or isolatio n Never 02/29/2024 [facility] Utilities Answer Date Recorded In the past 12 months has [email or web address], gas, oil, or water company threatened to [...] often do you attend chur ch or mosque services? 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 Gender Identity Not on file Sexual Orientation Straight 08/22/2021 9: 23 AM CDT documented as of this encounter Miscellaneous Notes * Telephone Encounter - Ny Griffin - 03/23/2024 9:41 AM CDT SEEN OPAT Monitoring NOTE 03/20 : [ID appt TBD: Anatoly END Inpt MACHINE SIZER/Attg: Alyssa - La Baxter / Angelique Outpt: [place] HI: [facility] Home Infusion ([phone]) HH: [facility] Dx: Bacteremia - MSSA Abx: Dalbavancin on and 03/28/24 Labs: CBC with diff and CMP Imaging: none Access: PICC removed, will do peripheral IV for infusions at infusion center FYI: Events: Labs: Date WBC ANC Eos Plt SCr AST/ALT CMV 02/28 9.7 2.2 0.3 148 0.78 48/03/07/24 5.2 1.2 0.2 161 1.10 39/03/20 4.4 1.9 0.0 206 1.36 100 Assessment/Plan: 03/01/24 - no change in abx plan -03/16/24: labs reviewed -03/24/24: labs reviewed Time spent: 10 minutes documented in this encounter Plan of Treatment Scheduled Procedures Name Priority Associated Diagnoses Date/Ti me COLONOSCOPY Encounter for screening for colorectal cancer in high risk patient Family history of rectal cancer documented as of this encounter Visit Diagnoses Not on filedocumented in this encounter Care Teams Vice President Of Instruction Relationship Specialty Start Date End Date Beka Nick MD [address] [place] [address] PCP - General Family Practice 05/31/23 04/25/24 Amber Montesinos, SHAILESH Paper Final Inspector Transplant 11/17/19 Jil Duncan MD Consulting Physician Infectious Diseases 01/10/20 Anita Gillespie MD Medical Oncologist/Golf Player Assistant Medical Oncology 10/07/20 Tabitha Hurley MD [address] [place] [address] Consulting Physician Rheumatology 10/22/21 Massiel Gastelum MD [address] [place] [address] Consulting Physician Otolaryngology 08/27/22 documented as of this encounter
--- OUTSIDE RECORDS SUMMARY | 2024-10-28 06:03 | XMS_ITS | Encounter Summary ---
Author Organization [facility] of [facility] Address [address] [place] [address] Phone Care Team Providers Care Solar Energy Systems Designer Name Role Phone Amber Montesinos RN Unavailable [phone] Jil Duncan MD Unavailable [phone] Anita Gillespie MD Unavailable [phone] Tabitha Hurley MD Unavailable [phone] Massiel Gastelum MD Unavailable [phone] Beka Nick MD Primary Care Provider [phone] Reason for Visit * Reason Onset Date Comments opat 03/31/2024 Encounter Details Date Type Department Care Team (Late st Contact Info) Description 03/31/2024 Telephone [facility] Infectious Diseases [address] [place] [address] Ny Griffin opat Social History Tobacco Use Types Packs/Day Years Used Date Smoking Tobacco: Never Smokeless Tobacco: Current Chew Alcohol Use Standard Drinks/Week Comments Yes 0 (1 standard drink = 0.6 oz pur e alcohol) occassional OASIS D0700: Social Isolation Answer Da te Recorded Frequency of experiencing loneliness or isolatio n Never 02/29/2024 [facility] Utilities Answer Date Recorded In the past 12 months has [employer], gas, oil, or water company threatened to [...] any clubs o r organizations such as mandaen groups, unions, fraternal or athletic groups, or [...] on file 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 Home Infusion ([phone]) HH: [facility] Dx: Bacteremia - MSSA Abx: Dalbavancin on and 03/28/24 Labs: CBC with diff and CMP Imaging: none Access: PICC removed, will do peripheral IV for infusions at infusion center FYI: Events: Labs: Date WBC ANC Eos Plt SCr AST/ALT CMV 02/28 9.7 2.2 0.3 148 0.78 48/14 03/07/24 5.2 1.2 0.2 161 1.10 39/11 03/20 4.4 1.9 0.0 206 1.36 47/ 100 03/28/24 4.5 1.5 0.0 188 1.06 /36 Assessment/Plan: 03/01/24 - no change in abx plan -03/16/24: labs reviewed -03/24/24: labs reviewed -5/31/24: Labs reviewed Time spent: 10 minutes documented in this encounter Plan of Treatment Scheduled Procedures Name Priority Associated Diagnoses Date/Ti me COLONOSCOPY Encounter for screening for colorectal cancer in high risk patient Family history of rectal cancer documented as of this encounter Visit Diagnoses Not on filedocumented in this encounter Care Teams Solar Energy Systems Designer Relationship Specialty Start Date End Date Beka Nick MD [address] [place] [address] PCP - General Family Practice 05/31/23 04/25/24 Amber Montesinos, SHAILESH Rn Renal Transplant 11/17/19 Jil Duncan MD Consulting Physician Infectious Diseases 01/10/20 Anita Gillespie MD Medical Oncologist/Commutator Repairer Medical Oncology 10/07/20 Tabitha Hurley MD [address] [place] [address] Consulting Physician Rheumatology 10/22/21 Massiel Gastelum MD [address] [place] [address] Consulting Physician Otolaryngology 08/27/22 documented as of this encounter
--- OUTSIDE RECORDS SUMMARY | 2024-10-28 06:03 | XMS_ITS | Encounter Summary ---
Author Organization [facility] Address [address] [place] [address] Care Team Providers Care Pmo Project Manager Name Role Phone Amber Montesinos RN Unavailable [phone] Jil Duncan MD Unavailable [phone] Anita Gillespie MD Unavailable [phone] Tabitha Hurley MD Unavailable [phone] Massiel Gastelum MD Unavailable Beka Nick MD Primary Care Provider [phone] Reason for Visit * Medication Authorization (Routine) - Pending Review Specialty Diagnoses / Procedures Referred By Contac t Referred To Contact Diagnoses Bacteremia due to methicillin susceptible Staphylococcus aureus (MSSA) La Baxter, ICE CREAM FREEZER [address] [facility] [address] [place] [address] Phone: tel: fax: Referral ID Status Reason Start Date Expiration Date V isits Requested Visits Authorized [id number] Pending Review 03/09/2024 04/08/2025 2 2 Encounter Details Date Type Department Care Team (Latest Contact Info) Description 03/28/2024 11:00 AM CDT Home Care Visit [facility] [place] [address] [address] [place] [address] Nowacki, Judah J., RN SN INFUSION TREATMENT ROOM Social History Tobacco Use Types Packs/Day Years Used Date Smoking Tobacco: Never Smokeless Tobacco: Current Chew Alcohol Use Standard Drinks/Week Comments Yes 0 (1 standard drink = 0.6 oz pur e alcohol) occassional OASIS D0700: Social Isolation Answer Da te Recorded Frequency of experiencing loneliness or isolatio n Never 02/29/2024 [facility] Utilities Answer Date Recorded In the past [...] place to sleep or slept in a group home (including now)? No 02/23/2024 Personal Safety Answer Date Recorded Have you ever been in or are you currently in a harmful physical or emotional relationship or is someone making you feel afraid or unsafe? 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 Gender Identity Not on file Sexual Orientation Straight 08/22/2021 9: 23 AM CDT documented as of this encounter Last Filed Vital Signs Vital Sign Reading Time Taken Comments Blood Pressure 110/60 03/28/2024 12:15 PM CDT Pulse 80 03/28/2024 12:15 PM CDT Temperature 36.6 ??C (97.9 ??F) 03/28/2024 12:15 PM C DT Respiratory Rate 16 03/28/2024 12:15 PM CDT Oxygen Saturation 99% 03/28/2024 12:15 PM CDT Inhaled Oxygen Concentration - - Weight - - Height - - Body Mass Index - - documented in this encounter Miscellaneous Notes * Home Health Plan for Next Visit - Judah Starks RN - 03/28/2024 11:00 AM CDT Reason for today's visit: Assessment, PIV and dose med. Labs. Discuss plan of care with patient. Discharge planning ongoing. Plan for next visit: Assessment, PIV and dose med, labs. documented in this encounter Plan of Treatment [...] times daily PRN, line care, Starting on Wed03/29/24 at 1333, Indications: FlushingIndications:Flushing Given 03/28/2024 12:15 PM CDT 10 mL Given 03/28/2024 11:30 AM CDT 10 mL Inactive Administered Medications - up to 3 [...] Type -SN Infusion Shraddha tment Room Discipline -Detention Problems Problem Description Start Date Status Goals Interventions Medications Disciplines: Detention Management of IV Medications 02/29/2024 Active - 1 problem intervention scheduled/documen mohsen in this visit Safety concerns Disciplines: Detention Safety needs related to infusion administration 02/29/2024 Active - 1 problem intervention scheduled/documen mohsen in this visit IV Therapy-Manageme nt, Education, and Maintenance Disciplines: Detention IV Management, education, and maintenance for home [...] complications. Medications instructed on: Cefazolin. Problem:Medications Completed Instruct patient/caregiver in medication administration, purpose, dosages, preparation, scheduling, side effects, food/drug interactions, storage, drug allergies, and potential complications. Medications instructed on: DALVANCE Instruct on IV complications Description: Instruct patient/caregiver on how to manage breaks in line, signs/symptoms of complications, who to contact for complications and how to contact the nurse, MD and infusion service Problem:Safety concerns Completed PIV remived after dose. Patient has no access. PICC Line Description: PICC Line with 1 [...] arm. Problem:IV Therapy-Management, Education, and Maintenance Completed Previous PICC line has been removed, patient requires an IV. PIV placed on 1st attempt using a 22 guage cath, med infused, line flushed and cath removed-intact. 2x2 and BandAid placed over the site. Patient tolerated the procedure well. IV Management and Education Description: Instruct patient/caregiver [...] infection. Problem:IV Therapy-Management, Education, and Maintenance Completed SN instructed patient/caregiver on Reason for Therapy: DALVANCE, to assess the insertion site once a day if not in use for continuous infusion, how to gather supplies, how to restock IV supplies in the home, prepare supplies, inspecting solution and supplies before infusing. SN instructed patient/caregiver on how to properly administer medication, normal saline, and heparin, disconnecting IV medication and waste disposal. SN instructed patient and caregiver to monitor for signs and symptoms of adverse medication reaction such as: Redness, warmth, drainage, temp above 100.5, rash, shortness of breath, tingling, numbness, restlessness, nausea and vomiting and to report to SN or physician. SN instructed patient to contact home health agency if line is not functioning properly. SN instructed on operation and management of infusion device- Patient has no pump SN instructed patient/caregiver on infection prevention and signs of [...] for any signs and symptoms of infection. Educate Family on Infection Prevention Description: Instructed family on signs and symptoms of infection IE: fever, odor, change in color, increased amount of drainage, purulent drainage, warmth. Problem:Infection Prevention Goal:Verbalize signs of infection Completed No family present. Assess safety Description: Assess patient safety Problem:Safety concerns Goal:Demonstrate use of safety precautions Completed Patient seen in treatment room at our [place] office but reports feeling safe at home and reports no issues. documented in this encounter Care Teams Pmo Project Manager Relationship Specialty Start Date End Date Beka Nick MD [address] [place] [address] PCP - General Family Practice 05/31/23 04/25/24 Amber Montesinos, SHAILESH Graphics Manager Transplant 11/17/19 Jil Duncan MD Consulting Physician Infectious Diseases 01/10/20 Anita Gillespie MD Medical Oncologist/Machine Assembler Medical Oncology 10/07/20 Tabitha Hurley MD [address] [place], [place] [id number] Consulting Physician Rheumatology 10/22/21 Massiel Gastelum MD [address] [place] [address] Consulting Physician Otolaryngology 08/27/22 documented as of this encounter
--- OUTSIDE RECORDS SUMMARY | 2024-10-28 06:03 | XMS_ITS | Encounter Summary ---
Author Organization [facility] Healthcare Address [address] [place] [address] Care Team Providers Care Head Cager Name Role Phone Amber Montesinos RN Unavailable [phone] Jil Duncan MD Unavailable [phone] Anita Gillespie MD Unavailable [phone] Tabitha Hurley MD Unavailable [phone] Massiel Gastelum MD Unavailable [phone] Unknown, Notinfile Primary Care Provider Unavail able Reason for Visit * Auth/Cert Specialty Diagnoses / Procedures Referred By Contac t Referred To Contact Diagnoses Chronic otitis media of both ears with effusion Chronic otitis media of both ears with effusion [H65.493] Procedures IN TYMPANOSTOMY GENERAL ANESTHESIA BILATERAL MYRINGOTOMY TUBE INSERTION Referral ID Status Reason Start Date Expiration Date Visits Re quested Visits Authorized [id number] 1 1 Encounter Details Date Type Department Care Team (Late st Contact Info) Description 04/28/2024 9:02 AM CDT Anesthesia Event [facility] Operating Room [facility] [address] [place], [place] [id number] Judah Chong MD [address] [place], [place] [id number] Melissa Orona NP [address] [facility] [phone] [place] [address] Anesthesia Record Procedure Summary Procedure Name Responsible Anesthesiologist Anesthesia Start Time Anesthesia Stop Time BILATERAL MYRINGOTOMY TUBE INSERTION (Bilateral: Ear) Judah Chong MD 04/28/24 0902 04/28/24 1000 Events Date Time Event Comment 04/28/2024 0751 In Preop 0859 0902 An Start 0909 An Start Data 0910 In Room 0913 An Induction The patient was reevaluated immediately before moderate or deep sedation use and before anesthesia induction. 0914 An LMA 0917 Anesthesia Ready 0922 HOB turned 180 degrees 0927 Proc Start 0948 Proc Fin 0950 Airway Removed 0953 an stop data 0956 Out of Room 1000 Handoff to RN I completed my handoff to the receiving nurse during which we: 1. Patient identified 2. Responsible provider identified 3. Pertinent medical history reviewed 4. Procedure type and surgical course discussed 5. Intraoperative anesthetic management and any significant issues discussed 6. Expectations and concerns for postop period discussed 7. Questions solicited from receiving nurse 8. Patient disposition at the time of handoff: PACU 1000 An Stop Meds Name Total midazolam PF 1 mg propofol 120 mg ondansetron PF (ZOFRAN) 2 mg/mL injectio n 4 mg fentaNYL syringe 100 mcg/2 mL 25 mcg Lactated Ringer's (LR) infusion 200 mL * Agents Name O2% N2O O2 Air Sevoflurane Inspired Sevoflurane * Blood No blood administrations on file. Lines, Drains, and Airways Type Details Placement Removal Peripheral IV Placement Date: 04/28/24; Placement Time: 816; Orientation: Anterior, Distal, Left, Upper; Location: Arm; Technique: Anatomical landmarks; Inserted by: Jayda billings; Insertion Attempts: 3; Removal Date: 04/28/24; Removal Time: 1038 04/28/24 0817 by Jayda Jj RN 04/28/24 1038 by Bonita Maloney RN Supraglottic Airway Placement Date: 04/28/24; Placement Time: 925 (created via procedure documentation); Mask Ventilation: 0; Size: 4; Insertion Attempts: 1; Removal Date: 04/28/24; Removal Time: 95804/28/24 0926 by Loree James MD 04/28/24 0959 by Loree James MD RETIRED Surgical Site 04/28/24; 0944; Bilateral; Ear; 10/03/24 (Retired LDA, Removed/Completed by [facility] with LDA Utility); 1213 (Retired LDA, Removed/Completed by [facility] with LDA Utility) 04/28/24 0944 by Ileana Oropeza RN 10/03/24 1213 by Discharge Provider, Automatic documented in this encounter Social History Tobacco Use Types Packs/Day Years Used Date Smoking Tobacco: Never Smokeless Tobacco: Current Chew Comments:Chews tobacco on o ccasion Alcohol Use Standard Drinks/Week Comments Yes 0 (1 standard drink = 0.6 oz pur e alcohol) occassional OASIS D0700: Social Isolation Answer Da te Recorded Frequency of experiencing loneliness or isolatio n Never 02/29/2024 [facility] Utilities Answer Date Recorded In the [...] often do you attend chur ch or shinto services? 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 Gender Identity Not on file Sexual Orientation Straight 08/22/2021 9: 23 AM CDT documented as of this encounter OR Notes * Anesthesia Postprocedure Evaluation - Faizan Flowers MD - 04/28/2024 10:26 AM CDT Patient: Beka Nichols Procedure Summary Date: 04/28/24 Room / Location: [facility] CAM OR POD 4 ROOM K / [facility] CAM OR POD 4 Anesthesia Start: 901 Anesthesia Stop: 1000 Procedures: BILATERAL MYRINGOTOMY TUBE INSERTION (Bilateral: Ear) REMOVAL MYRINGOTOMY TUBE (Left: Ear) Diagnosis: Chronic otitis media of both ears with effusion (Chronic otitis media of both ears with effusion [H65.493]) Surgeons: Massiel Gastelum MD Responsible Provider: Judah Chong MD Anesthesia Type: general ASA Status: 3 Anesthesia Type: general Last vitals BP 124/76 Pulse 88 Temp 36.7 ??C (98.1 ??F) (Temporal) Resp 25 SpO2 100% Anesthesia Post Evaluation Patient location during evaluation: PACU Patient participation: complete - patient participated Level of consciousness: fully awake Pain management: satisfactory to patient Airway patency: adequate and patent Evidence of recall: no Cardiovascular status: blood pressure returned to baseline and acceptable Respiratory status: acceptable and room air Hydration status: acceptable Pt is: normothermic Nausea/Vomiting status: none No notable events documented. * Anesthesia Procedure Notes - Loree James MD - 04/28/2024 9:25 AM CDT Associated Order(s): Airway Airway Patient location: OR Urgency: elective Indications for airway management: anesthesia Difficult airway: no Staff: Supervising provider: Judah Chong MD Placed by: Resident: Loree James MD Emergent airway documentation: Risks and benefits discussed: yes Consent obtained: yes Consent given by: patient Airway prep: Preoxygenated: yes Patient position: sniffing MILS maintained throughout: yes Mask difficulty assessment: 0 - not attempted Spontaneous ventilation during airway: present Sedation level during airway: GA Final airway details: Final airway type: supraglottic airway Final supraglottic airway: IGel SGA size: 4 Number of attempts: 1 Ventilation between attempts: none Planned trial extubation: yes * Anesthesia Preprocedure Evaluation - Judah Chong MD - 04/24/2024 1:24 PM CDT Images from the original note were not included. [facility] Preoperative Assessment and Planning Preoperative Evaluation Record Evaluation type/location: TPAP from [facility] Planned procedure site: [facility] CAM OR (Pod 4) Date: 04/24/24 [...] recurrent acute sinusitis. He is s/p [facility] inpatient hospitalization (02/17 - 02/25) for [...] TRANSPLANT IN 1998. Has F/u with [facility] Liver Transplant Team.) - liver. + Infectious disease (02/17 - 02/25: MSSA Bactermia, Pneumonia PCR positive for MSSA) - pneumonia andsepsis. Pertinent negatives: diabetes mellitus; thyroid disease; obesity (BMI >30) and rheumatological disease Comments: + Immunocompromised 02/18/2024 - 02/26/2024: Hospitalized at [facility] Acute respiratory failure with hypoxia (CMS/HCC) [...] for <24 hours.BC MSSA+ (02/17, 02/18), neg (/), MSSA (/), NGTD (02/21), staph capitis (02/22).CVC placed (02/17), [...] provided by telephone and electronically sent via [employer]. Patient verbalized understanding of instructions. Blood bank [...] unspecified part of lung 02/18/2024 Shock (CMS/HCC) ([facility]) 02/18/2024 Bicytopenia 02/18/2024 Hypocalcemia 02/18/2024 Hyponatremia 02/18/2024 Hypoalbuminemia 02/18/2024 CVID (common variable immunodeficiency) ([facility]) 02/18/2024 Portal hypertension (CMS/HCC) ([facility]) 02/18/2024 History of pulmonary embolus (PE) 02/18/2024 Subacute cough 11/29/2023 Edema of left lower extremity 10/11/2023 Parapneumonic effusion 10/11/2023 Acute respiratory failure with hypoxia (CMS/HCC) ([facility]) 10/09/2023 Acute superficial DVT of left upper [...] 01/06/2019 Community acquired pneumonia 01/06/2019 Lymphadenopathy 01/06/2019 senior living current use of immunosuppressive drug 01/06/2019 PTLD [...] (PREVYMIS) 480 mg tablet 04/21/2024 04/03/24 09/30/24 Lisadnra Auguste, NURSE EXAMINER Take 1 tablet (480 mg total) by [...] Txp: 03/03/1999 (Liver) D/C: ICD10: Z94.4 Center: [facility] ([place], [place]) traZODone (DESYREL) 50 mg tablet 01-19-2024 04/03/24 -- Anita Gillespie MD TAKE 1 TABLET BY MOUTH NIGHTLY Patient taking differently: Take 1 tablet (50 mg total) by mouth as needed for sleep ursodioL (ACTIGALL) 300 mg capsule 04/20/2024 07/27/23 -- David Pool MD Take 2 capsules (600 mg total) by mouth daily with dinner Notes: PA/Scripts P: [phone] F: [phone] Ongoing Comment Alex Daily RN 03/15/2024 7:21 AM 02/18/20NO INTERACTIONS FOR ADMISSION-WIN RN No interactilns 03/12/2020 JSCostantialmas RN No interactions noted. 03/15/2020 JSCostyolis RN No med interactions 03/25/2020 No severe interactions noted 12/20/2021 JSC RN 12/27/21 No severe interaction noted upon review Lesvia Conde HAM CURER 01/24/2022 No severe interactions or contraindications noted. [...] Medication protocol when under care of a DAIRY EQUIPMENT MECHANIC Planned anesthesia: General Team communication plan: LMA Induction: Induction: intravenous. Postoperative Plan: Postoperative administration opioids intended. No postoperative mechanical ventilation intended. Patient's planned disposition post procedure is Outpatient. No trial extubation planned. Informed Consent: Discussed plan with DAIRY EQUIPMENT MECHANIC. Anesthesia plan and risks discussed with patient [...] All questions answered. documented in this encounter Plan of Treatment Scheduled Procedures Name Priority Associated Diagnoses Date/Ti me COLONOSCOPY Encounter for screening for colorectal cancer in high risk patient Family history of rectal cancer documented as of this encounter Procedures Procedure Name Priority Date/Time Associated Diagnosis Comments ANESTHESIA INTUBATION Routine 04/28/2024 9:25 AM CDT documented in this encounter Results * Airway (04/28/2024 9:25 AM CDT) Narrative Loree James MD - 04/28/2024 9:25 AM CDT Loree James MD ? 04/28/2024 ??9:26 AM Airway Patient location: OR Urgency: elective Indications for airway management: anesthesia Difficult airway: no Staff: Supervising provider: Judah Chong MD Placed by: Resident: Loree James MD Emergent airway documentation: Risks and benefits discussed: yes Consent obtained: yes Consent given by: patient Airway prep: Preoxygenated: yes Patient position: sniffing MILS maintained throughout: yes Mask difficulty assessment: 0 - not attempted Spontaneous ventilation during airway: present Sedation level during airway: GA Final airway details: Final airway type: supraglottic airway Final supraglottic airway: IGel SGA size: 4 Number of attempts: 1 Ventilation between attempts: none Planned trial extubation: yes Judah Chong MD ANESTHESIA ORDERABLES Final Result documented in this encounter Visit Diagnoses Not on filedocumented in this encounter Administered Medications Inactive Administered Medications - up to 3 most recent administrations Medication Order MAR Action Action Date Dose Rate Site fentaNYL (SUBLIMAZE) preservative free syringe epidural, As needed, Starting on Wed04/28/24 at 0938, Anesthesia Intra-op Given 04/28/2024 9:38 AM CDT 25 mcg Lactated Ringer's (LR) infusion 30 mL/hr, intravenous, Continuous, Starting on Wed04/28/24 at 0830, Pre-Op Rate/Dose Verify 04/28/2024 9:02 AM CDT 30 mL/hr New Bag 04/28/2024 8:18 AM CDT 30 mL/hr 30 mL/hr midazolam (VERSED) 2 mg/2 mL preservative free injection intravenous, Administer over 2 Minutes, As needed, Starting on Wed04/28/24 at 0906, Anesthesia Intra-op Given 04/28/2024 9:06 AM CDT 1 mg ondansetron (ZOFRAN) injection intravenous, Administer over 2 Minutes, As needed, Starting on Wed04/28/24 at 0927, Anesthesia Intra-op Given 04/28/2024 9:27 AM CDT 4 mg propofoL (DIPRIVAN) 10 mg/mL IV intravenous, As needed, Starting on Wed04/28/24 at 0910, Anesthesia Intra-op Given 04/28/2024 9:10 AM CDT 120 mg documented in this encounter Care Teams Head Cager Relationship Specialty Start Date End Date Unknown, Notinfile PCP - General 04/26/24 08/01/24 Amber Montesinos RN Head Stock Operator Transplant 11/17/19 Jil Duncan MD Consulting Physician Infectious Diseases 01/10/20 Anita Gillespie MD Medical Oncologist/Livestock Buyer Medical Oncology 10/07/20 Tabitha Hurley MD [address] [place] [address] Consulting Physician Rheumatology 10/22/21 Massiel Gastelum MD [address] [place] [address] Consulting Physician Otolaryngology 08/27/22 documented as of this encounter
--- OUTSIDE RECORDS SUMMARY | 2024-10-28 06:04 | XMS_ITS | Encounter Summary ---
Author Organization [facility] Healthcare Address [address] [place] [address] Care Team Providers Care Environmental Laboratory Technician Name Role Phone Amber Montesinos RN Unavailable [phone] Jil Duncan MD Unavailable [phone] Anita Gillespie MD Unavailable [phone] Tabitha Hurley MD Unavailable [phone] Massiel Gastelum MD Unavailable [phone] Beka Nick MD Primary Care Provider [phone] Encounter Details Date Type Department Care Team (Late st Contact Info) Description 03/10/2024 Orders Only [facility] Home Care Services [address] [place] [address] Melony Jerome, [facility] Social History Tobacco Use Types Packs/Day Years Used Date Smoking Tobacco: Never Smokeless Tobacco: Current Chew Alcohol Use Standard Drinks/Week Comments Yes 0 (1 standard drink = 0.6 oz pur e alcohol) occassional OASIS D0700: Social Isolation Answer Da te Recorded Frequency of experiencing loneliness or isolatio n Never 02/29/2024 [facility] Utilities Answer Date Recorded In [...] place to sleep or slept in a detention (including now)? No 02/23/2024 Personal Safety Answer Date Recorded Have you ever been in or are you currently in a harmful physical or emotional relationship or is someone making you feel afraid or unsafe? 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 Infuse Dalvance 1500 mg in D5 500 mL IV over 30 minutes via rate flow or pump. Remove PICC after use. Use PIV Line per protocol for further infusions. 1 SNV every week for 9 weeks for patient assessment, teaching, IV catheter care, lab work. 6 PRN visits for additional teaching, line care, labs or other symptom management. documented in this encounter Plan of Treatment Scheduled Procedures Name Priority Associated Diagnoses Date/Ti mt COLONOSCOPY Encounter for screening for colorectal cancer in high risk patient Family history of rectal cancer documented as of this encounter Visit Diagnoses Not on filedocumented in this encounter Care Teams Environmental Laboratory Technician Relationship Specialty Start Date End Date Beka Nick MD [address] [place] [address] PCP - General Family Practice 05/31/23 04/25/24 Amber Montesinos, SHAILESH Staff Therapist Transplant 11/17/19 Jil Duncan MD Consulting Physician Infectious Diseases 01/10/20 Anita Gillespie MD Medical Oncologist/Grizzlyman Medical Oncology 10/07/20 Tabitha Hurley MD [address] [facility] [address] [place], [place] [id number] Consulting Physician Rheumatology 10/22/21 Massiel Gastelum MD [address] [place], [place] [id number] Consulting Physician Otolaryngology 08/27/22 documented as of this encounter
--- OUTSIDE RECORDS SUMMARY | 2024-10-28 06:04 | XMS_ITS | Encounter Summary ---
Author Organization [facility] Healthcare Address [address] [place] [address] Care Team Providers Care Retail Merchandiser Technician Name Role Phone Amber Montesinos RN Unavailable [phone] Jil Duncan MD Unavailable [phone] Anita Gillespie MD Unavailable [phone] Tabitha Hurley MD Unavailable [phone] Massiel Gastelum MD Unavailable [phone] Beka Nick MD Primary Care Provider [phone] Encounter Details Date Type Department Care Team (Late st Contact Info) Description 02/29/2024 Plan of Care Documentation [facility] [address] [address] [address] [place] [address] Social History Tobacco Use Types Packs/Day Years Used Date Smoking Tobacco: Never Smokeless Tobacco: Current Chew Alcohol Use Standard Drinks/Week Comments Yes 0 (1 standard drink = 0.6 oz pur e alcohol) occassional OASIS D0700: Social Isolation Answer Da te Recorded Frequency of experiencing loneliness or isolatio n Never 02/29/2024 [facility] Utilities Answer Date Recorded In the [...] often do you attend chur ch or mormon services? 1 to 4 times per year 02/23/2024 Do you belong to any clubs o r organizations such as moravian groups, unions, fraternal or athletic groups, or [...] making you feel afraid or unsafe? 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 The patient is under my care, and I have authorized serviceson this plan of care and will periodically review the plan. The patient had a [id number] encounter with Roxann Craft MD on 02/25/2024 and the encounter was related to the primary reason for homehealth care. documented in this encounter Plan of Treatment Scheduled Procedures Name Priority Associated Diagnoses Date/Ti me COLONOSCOPY Encounter for screening for colorectal cancer in high risk patient Family history of rectal cancer documented as of this encounter Visit Diagnoses Not on filedocumented in this encounter Additional Health Concerns Infection Onset Date Last Indicated Resolved Time Rhino/Enterovirus 02/18/2024 02/19/2024 03/04/2024 3:05 AM CDT documented as of this encounter Care Teams Retail Merchandiser Technician Relationship Specialty Start Date End Date Beka Nick MD [address] [place] [address] PCP - General Family Practice 05/31/23 04/25/24 Amber Montesinos, RN Conduit Bender Transplant 11/17/19 Jil Duncan MD Consulting Physician Infectious Diseases 01/10/20 Anita Gillespie MD Medical Oncologist/Special Events Fundraiser Medical Oncology 10/07/20 Tabitha Hurley MD [address] [facility] [address] [place] [address] Consulting Physician Rheumatology 10/22/21 Massiel Gastelum MD [address] [place] [address] Consulting Physician Otolaryngology 08/27/22 documented as of this encounter
--- OUTSIDE RECORDS SUMMARY | 2024-10-28 06:04 | XMS_ITS | Encounter Summary ---
Author Organization [facility] Healthcare Address [address] [place] [address] Care Team Providers Care Chair Inspector And Leveler Name Role Phone Amber Montesinos RN Unavailable [phone] Jil Duncan MD Unavailable [phone] Anita Gillespie MD Unavailable [phone] Tabitha Hurley MD Unavailable [phone] Massiel Gastelum MD Unavailable [phone] Beka Nick MD Primary Care Provider [phone] Encounter Details Date Type Department Care Team (Late st Contact Info) Description 03/07/2024 11:30 AM CDT Home Care Visit [facility] [address] [address] [address] [place] [address] Judah Starks, RN SN HOME VISIT Social History Tobacco Use Types Packs/Day Years Used Date Smoking Tobacco: Never Smokeless Tobacco: Current Chew Alcohol Use Standard Drinks/Week Comments Yes 0 (1 standard drink = 0.6 oz pur e alcohol) occassional OASIS D0700: Social Isolation Answer Da te Recorded Frequency of experiencing loneliness or isolatio n Never 02/29/2024 [facility] Utilities Answer Date Recorded In the past 12 months has [employer] electric, gas, oil, or water company threatened [...] often do you attend chur ch or faith services? 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 Gender Identity Not on file Sexual Orientation Straight 08/22/2021 9: 23 AM CDT documented as of this encounter Last Filed Vital Signs Vital Sign Reading Time Taken Comments Blood Pressure 106/62 03/07/2024 11:25 AM CDT Pulse 72 03/07/2024 11:25 AM CDT Temperature 36.5 ??C (97.7 ??F) 03/07/2024 11:25 AM C DT Respiratory Rate 16 03/07/2024 11:25 AM CDT Oxygen Saturation 100% 03/07/2024 11:25 AM CDT Inhaled Oxygen Concentration - - Weight - - Height - - Body Mass Index - - documented in this encounter Miscellaneous Notes * Home Health Plan for Next Visit - uJdah Starks RN - 03/07/2024 11:18 AM CDT Reason for today's visit: Assessment, labs and line care. Discuss plan of care with patient. Discharge planning ongoing. Plan for next visit: Assessment, labs and line care. documented in this encounter Plan of [...] times daily PRN, line care, Starting on Wed03/08/24 at 1315, Indications: FlushingIndications:Flushing Given 03/07/2024 11:40 AM CDT 10 mL Inactive Administered Medications - up to 3 most recent administrations Medication Order MAR Action Action Date Dose Rate Site [facility] heparin lock flush, porcine, 50 Units, intravenous, As needed, LINE CARE, Starting on Wed03/08/24 at 2019, Indications: LINE CAREIndications:LINE CARE Given 03/07/2024 11:40 AM CDT 5 mL documented in this encounter Home Health Visit - Care Plan Visit Details Visit Type -SN Home Visit Discipline -Half-Way Problems Problem Description Start Date Status Goals Interventions Collect Specimen/Lab Draw Disciplines: Half-Way Management of specimen samples, including lab draws, stool, urine, sputum & wound cultures 02/29/2024 Active - 1 problem intervention scheduled/documen mohsen in this visit Medications Disciplines: Half-Way Management of IV Medications 02/29/2024 Active - 1 problem intervention scheduled/documen mohsen in this visit Safety concerns Disciplines: Half-Way Safety needs related to infusion administration 02/29/2024 Active - 1 problem intervention scheduled/documen mohsen in this visit IV Therapy-Manageme nt, Education, and Maintenance Disciplines: Half-Way IV Management, education, and maintenance for home [...] Collect Specimen/Draw Labs Problem:Collect Specimen/Lab Draw Completed Labs drawn as ordered from IV access after discard and line well flushed after labs. CBC, CMP drawn today. Instruct on Medication Management Description: Instruct patient/caregiver in medication administration, purpose, dosages, preparation, scheduling, side effects, food/drug interactions, storage, drug allergies, and potential complications. Medications instructed on: Cefazolin. Problem:Medications Completed SN instructed patient/caregiver in medication administration, purpose, dosages, preparation, scheduling, side effects, food/drug interactions, storage, drug allergies, and potential complications. Medications instructed on: Cefazolin. Instruct on IV complications Description: Instruct patient/caregiver on how to manage breaks in line, signs/symptoms of complications, who to contact for complications and how to contact the nurse, MD and infusion service Problem:Safety concerns Completed SN instructed patient/caregiver on how to manage breaks in line, signs/symptoms of complications, who to contact for complications and how to contact the nurse, MD and infusion service PICC Line Description: PICC Line with 1 [...] arm. Problem:IV Therapy-Management, Education, and Maintenance Completed Dressing removed and site prepped per protocol by SN. Site without S/S of infection and securment device placed on line and transparent dressing placed over site with Pt. tolerating procedure well. Line patent and flushes well. IV Management and Education Description: Instruct [...] SN instructed patient/caregiver on Reason for Therapy: Cefazolin, to [...] Problem:Infection Prevention Goal:Verbalize signs of infection Completed SN instructed family on signs and symptoms of infection IE: fever, odor, change in color, increased amount of drainage, purulent drainage, warmth. Assess safety Description: Assess patient safety Problem:Safety concerns Goal:Demonstrate use of safety precautions Completed Patients home is safe and clean with safe storage for all supplies and medications and with no safety risk noted. documented in this encounter Care Teams Chair Inspector And Leveler Relationship Specialty Start Date End Date Beka Nick MD [address] [place] [address] PCP - General Family Practice 05/31/23 04/25/24 Amber Montesinos, SHAILESH Transactional Attorney Transplant 11/17/19 Jil Duncan MD Consulting Physician Infectious Diseases 01/10/20 Anita Gillespie MD Medical Oncologist/Coke Production Heater Medical Oncology 10/07/20 Tabitha Hurley MD [address] [place], [place] [id number] Consulting Physician Rheumatology 10/22/21 Massiel Gastelum MD [address] [place] [address] Consulting Physician Otolaryngology 08/27/22 documented as of this encounter
--- OUTSIDE RECORDS SUMMARY | 2024-10-28 06:04 | XMS_ITS | Encounter Summary ---
Author Organization [facility] Healthcare Address [address] [place] [address] Care Team Providers Care Independent Trader Name Role Phone Amber Montesinos RN Unavailable [phone] Jil Duncan MD Unavailable [phone] Anita Gillespie MD Unavailable [phone] Tabitha Hurley MD Unavailable [phone] Massiel Gastelum MD Unavailable Beka Nick MD Primary Care Provider [phone] Reason for Referral * Medication Authorization (Routine) - Pending Review Specialty Diagnoses / Procedures Referred By Contac t Referred To Contact Diagnoses Bacteremia due to methicillin susceptible Staphylococcus aureus (MSSA) La Baxter NP [address] [facility] [address] [place] [address] Phone: tel: fax: Referral ID Status Reason Start Date Expiration Date V isits Requested Visits Authorized [id number] Pending Review 03/09/2024 04/08/2025 2 2 Encounter Details Date Type Department Care Team (Late st Contact Info) Description 03/09/2024 Orders Only [facility] Isolation Infection [address] [place], [place] [id number] La Baxter, CREDENTIALER [address] [place] [address] Bacteremia due to methicillin susceptible Staphylococcus aureus (MSSA) (Primary Dx) Social History Tobacco Use Types Packs/Day Years Used Date Smoking Tobacco: Never Smokeless Tobacco: Current Chew Alcohol Use Standard Drinks/Week Comments Yes 0 (1 standard drink = 0.6 oz pur e alcohol) occassional OASIS D0700: Social Isolation Answer Da te Recorded Frequency of experiencing loneliness or isolatio n Never 02/29/2024 [facility] Utilities Answer Date Recorded In [...] often do you attend chur ch or episcopalian services? 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 Gender Identity Not on file Sexual Orientation Straight 08/22/2021 9: 23 AM CDT documented as of this encounter Plan of Treatment Scheduled Procedures Name Priority Associated Diagnoses Date/Ti me COLONOSCOPY Encounter for screening for colorectal cancer in high risk patient Family history of rectal cancer documented as of this encounter Visit Diagnoses Diagnosis Bacteremia due to methicillin susceptible Staphylococcus aureus (MSSA)- Primary documented in this encounter Orders Medications Ordered That John ht Not Have Been Administered Count Last Ordered Date First Ordered Date dalbavancin (DALVANCE) injection 1,500 mg 1 03/09/2024 documented in this encounter Care Teams Independent Trader Relationship Specialty Start Date End Date Beka Nick MD [address] [place] [address] PCP - General Family Practice 05/31/23 04/25/24 Amber Montesinos, RN Obstetrics Teacher Transplant 11/17/19 Jil Duncan MD Consulting Physician Infectious Diseases 01/10/20 Anita Gillespie MD Medical Oncologist/Telecommunications Sales Representative Medical Oncology 10/07/20 Tabitha Hurley MD [address] [place] [address] Consulting Physician Rheumatology 10/22/21 Massiel Gastelum MD [address] [place] [address] Consulting Physician Otolaryngology 08/27/22 documented as of this encounter
--- OUTSIDE RECORDS SUMMARY | 2024-10-28 06:04 | XMS_ITS | Encounter Summary ---
Author Organization [facility] Healthcare Address [address] [place] [address] Care Team Providers Care Photo Journalist Name Role Phone Amber Montesinso RN Unavailable [phone] Jil Duncan MD Unavailable [phone] Anita Gillespie MD Unavailable [phone] Tabitha Hurley MD Unavailable [phone] Massiel Gastelum MD Unavailable [phone] Beka Nick MD Primary Care Provider [phone] Reason for Visit * Reason Comments Personal Problem Encounter Details Date Type Department Care Team (Late st Contact Info) Description 03/08/2024 10:52 PM CDT - 03/09/2024 3:46 AM CDT Emergency [facility] Emergency Department [address] [place] [id number] Subhash Bangura MD [address] [facility] [address] [place] [address] Encounter for assessment of peripherally inserted central catheter (PICC) (Primary Dx); Sensation of fullness in right ear Discharge Disposition: Discharge to home or self [...] often do you attend chur ch or buddhism services? 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 Gender Identity Not on file Sexual Orientation Straight 08/22/2021 9: 23 AM CDT documented as of this encounter Last Filed Vital Signs Vital Sign Reading Time Taken Comments Blood Pressure 115/71 03/09/2024 3:30 AM CDT Pulse 77 03/09/2024 3:30 AM CDT Temperature 36.8 ??C (98.2 ??F) 03/08/2024 8:08 PM CD T Respiratory Rate 18 03/09/2024 3:30 AM CDT Oxygen Saturation 98% 03/09/2024 3:30 AM CDT Inhaled Oxygen Concentration - - Weight 63.5 kg (140 lb) 03/08/2024 8:08 PM CDT Height 172.7 cm (5' 8 ) 03/08/2024 8:08 PM CDT Body Mass Index 21.29 03/08/2024 8:08 PM CDT documented in this encounter Discharge Instructions * Attachments The following attachments cannot be sent through Care Everywhere. * PICC Line Care (Emirati) documented in this encounter Medications at Time [...] mouth daily 30 tablet 5 09/28/2023 4 ceFAZolin (ANCEF) 2,000 mg/20 mL syringeIndicatio ns:Blood Stream/Endovascu lar Infection [The details of the medication are not available because there are pending changes by a home health clinician.] 02/26/2024 4 furosemide (LASIX) 20 mg tablet Take 2 tablets (40 mg total) by mouth daily 60 tablet 1 12/02/2023 4 furosemide (LASIX) 20 mg tabletIndication s:Edema Take 1 tablet (20 mg total) by mouth daily Take 2 tabs (40mg) by mouth daily 03/03/2025 4 [facility] heparin lock flush, porcine,Indicati ons:LINE CARE Infuse 5 mL (50 Units total) into a venous catheter as needed (LINE CARE) 4 magnesium oxide (MAG-OX) 400 mg (241.3 [...] or self care documented in this encounter Procedure Notes * Neha Rae RN - 03/09/2024 3:46 AM CDT Images from the original note were not included. Vascular Access Nurse: Procedure Note Summary of treatment provided to patient today is as follows : . Vascular Access Documentation (last 4 hours) [facility] Additional Procedures Row Name 03/09/24 0351 Procedures Time in 314 -AW Time out 344 - Time Calculation (min) 30 min -AW Vascular Access Procedures Central venous catheter dressing change;Check PICC line -AW PICC Line Check Dressing intact;Site with drainage Clear drainage from insertion site after pt picked up a gallon of milk -AW User Shah (r) = Recorded By, (t) = Taken By, (c) = Cosigned By Initials Name Neha Mcneill, RN Dressing change to RUE single lumen PICC per [facility] policy. Applied glue to insertion site and reminded pt to not do any heavy lifting with the PICC arm and do not secure needleless injection connectorswith tape as this increases the risk for CLABSI. Neha Rae, RN documented in this encounter ED Notes * Subhash Bangura MD - 03/09/2024 12:28 AM CDT Emergency Medicine Attending Attestation This is an Attending Attestation note. I have seen and examined the patient on 03/08/2024. I agree with the findings and plan of care as documented in the resident's note. My exam reveals: A 29-year-old male presenting with a complaint of PICC line leakage. He was seen here for similar issues last week. There is no sign of drainage, erythema or purulence at the PICC line insertion site. Basic plan of care: PICC team consult Subhash Bangura MD Emergency Medicine Subhash Bangura MD 03/09/24 0155 * Robert Simpson MD - 03/08/2024 11:45 PM CDT HPI Portions of the record may have been created with voice recognition software. Occasional wrong-wordor ???hicru-h-eicm??? substitutions may have occurred due to the inherent limitations of voice recognition software. Read the chart carefully and recognize, using context, where substitutions have occurred. Chief Complaint Patient presents with Personal Problem Triage note: Pt arrives to ED for leaking PICC line (x3 hours). Pt had PICC line placed 3 weeks ago and it started leaking clear fluid today. Pt states he was seen here on 02/27 for similar issue. Site does not appear inflamed/warm to touch but is slightly red. Pt also complaining of R ear issues x3 weeks (inability to hear out of it fully). Pt has a hx of autoimmune hepatitis, ITP, recurrent portal HTN, chronic cholestasis Beka Nichols is a 29 y.o. 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 Patient said that he had 1 or 2 episodes of leakage tonight. Leakage happens 1 hour after medications are flushed and soak the bandage. There is no blood, patient is not having any fevers or chills or pain at the PICC site. Patient had the same thing happened about a week ago. At that time the PICC team came down to the emergency department, redressed it and put port glue over it which stopped the leaking until today when they felt the glue get pulled off during a dressing change with home-health. Patient is also complaining of some right ear fullness. Patient says he has had that many times inthe past, has significant TMs scarring and there was discussion about placing tubes who or unable to be placed due to the significant scarring. Was told by his ENT doctor that if this happens again they may need to be placed under general anesthesia. At the time he was not having any issues. Current episode has been going on for 2-3 weeks, has not reached out to his ENT doctor about it yet. Is not having a headache. Past Medical History: Diagnosis Date Cancer (CMS/HCC) [...] TW Conv) PNA (pneumonia) Pulmonary emboli (HCC) Long-Term Medications Medication Sig Dispense Refill furosemide (LASIX) 20 mg tablet Take 2 tablets (40 mg total) by mouth daily 60 tablet 1 [START ON 03/03/2025] furosemide (LASIX) 20 mg tablet Take 20 mg by mouth daily. Take 2 tabs (40mg) by mouth daily Indications: visible water retention guaiFENesin ER (MUCINEX) 600 mg 12 hr tablet Take 1 tablet (600 mg total) by mouth 2 (two) times a day 60 tablet 11 magnesium oxide (MAG-OX) 400 mg (241.3 mg elemental magnesium) tablet Take 1 tablet (400 mg total) by mouth 2 (two) times a day for 7 days Take while on foscarnet 14 tablet 0 spironolactone (ALDACTONE) 50 mg tablet Take 2 tablets (100 mg total) by mouth daily 60 tablet 1 spironolactone (ALDACTONE) 50 mg tablet Take 50 mg by mouth daily. Take 2 tab by mouth daily Indications: ascites tacrolimus 0.5 mg immediate-release capsule Take 1 capsule (0.5 mg total) by mouth every other day 45 capsule 3 traZODone (DESYREL) 50 mg tablet Take 1 tablet (50 mg total) by mouth nightly 30 tablet 4 triamcinolone (KENALOG) 0.1 % cream Apply topically 2 (two) times a day as needed for rash 80 g 2 ursodioL (ACTIGALL) 300 mg capsule Take 2 capsules (600 mg total) by mouth daily with dinner 180 capsule 3 Past Surgical History: Procedure Laterality Date BIOPSY LIVER N/A 02/02/2020 BIOPSY LYMPH NODE SUPERFICIAL N/A 05/22/2014 EXCHANGE PICC LINE Left 12/24/2021 FUNCTIONAL ENDOSCOPIC SINUS SURGERY 08/28/2022 IR PICC LINE PLACEMENT > 5 YEARS N/A 12/19/2021 IR PICC LINE PLACEMENT > 5 YEARS N/A 12/26/2021 LIVER TRANSPLANT 1999 OTHER SURGICAL HISTORY 01/06/2019 Excisional lymph node biopsy of neck SPLENECTOMY US ABDOMEN COMPLETE W LIVER DOPPLER (C) Right 10/18/2018 US GUIDED BIOPSY LIVER N/A 10/18/2018 US GUIDED BIOPSY LIVER N/A 05/14/2020 US GUIDED BIOPSY LIVER N/A 08/31/2022 US GUIDED BIOPSY LYMPH NODE SUPERFICIAL LEFT N/A 10/13/2019 US GUIDED BIOPSY LYMPH NODE SUPERFICIAL LEFT N/A 10/07/2021 Family History Problem Relation Age of Onset Rectal cancer Mother Rectal cancer - (Added by TW Conv) No Known Problems Father Diabetes type II Sister Family history of type 2 diabetes mellitus - (Added by MARIN Holland) Anesthesia problems Other Social History Social History Narrative Living Situation: Residential institution 10/05/17 (Added by MARIN Conv) BP 115/71 Pulse 77 Temp 36.8 ??C (98.2 ??F) (Oral) Resp 18 Ht 172.7 cm (5' 8 ) Wt 63.5 kg(140 lb) SpO2 98% BMI 21.29 kg/m?? Review of systems: Negative unless documented in the HPI or MDM - Constitutional: Patient is well appearing and appears to be nontoxic. - Head: Atraumatic. - Eyes: No scleral icterus. - ENT: No nasal deformity. Right TM is full. Does not appear purulent, no drainage from the ear. Nopain with manipulation of the pinna, no TTP around the ear or over the tragus. No sinus TTP. - Neck: Normal range of motion. - Respiratory: No respiratory distress. No stridor. Clear lungs. - Cardiovascular: Normal rate and regular rhythm. - Abdominal: Non-distended abdomen. - Back: Normal inspection and range of motion. - Extremities: Warm and well perfused. PICC line insertion in her right upper arm is well-appearing. Small amount of dried fluid but no blood. No significant redness or swelling at the site. Area is nontender. No lymphadenopathy - Neuro: No focal deficits. - Psychiatric: Mood is euthymic. Judgement, insight, memory and concentration appear normal. MDM Medical Decision Making Additional history provided by: mom Prior external notes reviewed: yes Socioeconomic considerations: complex medical hx Cavghon-ubpxozxj-vmqyrr summation: 29yoM w/ complex medical history presents to the emergency department with right ear fullness as well as fluid leakage from PICC site. Has history of significant ear infections with TM scarring, followed by ENT with discussion of placement of tubes under anesthesia if patient has recurrence of fullness and difficulty hearing. Was also seen about a week ago for leakage from the PICC site which was solved with glue placed by the PICC team. No evidence of infection at this time. Will the PICC teamcome and evaluate patient, do not think he needs further workup in his ear at this time but will encourage follow up with his ENT. Differential diagnosis includes but not limited to highest concern for PICC leakage, ear effusion, less likely infection, less likely sinusitis Admission considered? : no In consideration of the above differential diagnosis, the following orders were placed while the patient was in the Emergency Department. See ED course for pertinent results and imaging interpretation. Orders Placed This Encounter Procedures Notify Provider (if patient's SBP < 90 or MAP < 65) DO NOT UNCHECK - ED coin machine operator Standing Order: Suspected Infection Consult to Vascular Access Team The patient received the following medications: Medications - No data to display Attending Summary of Care ED Course as of 03/09/24 0634 Time: 03/09 123 Comment: Waiting for call back from vascular access team. By: Robert Simpson MD Time: 03/09 155 Comment: No call back from vascular access at this time. Charge nursing trying to get a hold of general house worker to help facilitate this, since that will be all that patient needs. By: Robert Simpson MD Time: 03/09 321 Comment: Charge nurse and house super unable to get a hold of vascular access team. By: Robert Simpson MD Time: 03/09 329 Comment: Vascular access team is in the room changing the dressing. Once that is done, pt and family would like to go to take home meds. Will prep discharge paperwork. By: Robert Simpson MD ED Diagnoses: 1. Encounter for assessment of peripherally inserted central catheter (PICC) 2. Sensation of fullness in right ear Robert Simpson MD Resident 03/09/24 0634 Cosigned by Subhash Bangura MD at 03/09/2024 6:37 AM CDT Associated attestation - Subhash Bangura MD - 03/09/2024 6:37 AM CDT I have seen and examined the patient on 03/08/2024. I agree with the findings and plan of care as documented in the resident's note. * Jeremias Regalado RN - 03/08/2024 10:52 PM CDT Bed: ED2-20 Expected date: Expected time: Means of arrival: Car Comments: Jeremias Regalado RN 03/08/24 0494 * Lady Acuña RN - 03/08/2024 8:03 PM CDT Pt arrives to ED for leaking PICC line (x3 hours). Pt had PICC line placed 3 weeks ago and it started leaking clear fluid today. Pt states he was seen here on 02/27 for similar issue. Site does not appear inflamed/warm to touch but is slightly red. Pt also complaining of R ear issues x3 weeks (inability to hear out of it fully). Pt has a hx of autoimmune hepatitis, ITP, recurrent portal HTN, chronic cholestasis documented in this encounter Plan of Treatment Scheduled Procedures Name Priority Associated Diagnoses Date/Ti me COLONOSCOPY Encounter for screening for colorectal cancer in high risk patient Family history of rectal cancer documented as of this encounter Visit Diagnoses Diagnosis Encounter for assessment of peripherally inserted central catheter (PICC)- Primary Sensation of fullness in right ear documented in this encounter Care Teams Photo Journalist Relationship Specialty Start Date End Date Beka iNck MD [address] [place] [address] PCP - General Family Practice 05/31/23 04/25/24 Amber Montesinos, RN Excellence Manager Transplant 11/17/19 Jil Duncan MD Consulting Physician Infectious Diseases 01/10/20 Anita Gillespie MD Medical Oncologist/Network Liaison Medical Oncology 10/07/20 Tabitha Hurley MD [address] [place] [address] Consulting Physician Rheumatology 10/22/21 Massiel Gastelum MD [address] [place] [address] Consulting Physician Otolaryngology 08/27/22 documented as of this encounter
--- OUTSIDE RECORDS SUMMARY | 2024-10-28 06:04 | XMS_ITS | Encounter Summary ---
Author Organization [facility] Healthcare Address [address] [place] [address] Care Team Providers Care Industrial Electrical Technician Name Role Phone Amber Montesinos RN Unavailable [phone] Jil Duncan MD Unavailable [phone] Anita Gillespie MD Unavailable [phone] Tabitha Hurley MD Unavailable [phone] Massiel Gatselum MD Unavailable Beka Nick MD Primary Care Provider [phone] Reason for Visit * Reason Onset Date Comments opat 03/01/2024 Encounter Details Date Type Department Care Team (Late st Contact Info) Description 03/01/2024 Documentation [facility] Isolation Infection [address] [place] [address] La Baxter, HAT STEAMER [address] [place] [address] opat Social History Tobacco Use Types Packs/Day Years Used Date Smoking Tobacco: Never Smokeless Tobacco: Current Chew Alcohol Use Standard Drinks/Week Comments Yes 0 (1 standard drink = 0.6 oz pur e alcohol) occassional OASIS D0700: Social Isolation Answer Da te Recorded Frequency of experiencing loneliness or isolatio n Never 02/29/2024 [facility] Utilities Answer Date Recorded In [...] often do you attend chur ch or hindu services? 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 Gender Identity Not on file Sexual Orientation Straight 08/22/2021 9: 23 AM CDT documented as of this encounter Progress Notes * aL Baxter NP - 03/01/2024 1:36 PM CDT OPAT Monitoring NOTE 03/20 : [ID appt TBD: Anatoly END Inpt HAT STEAMER/Attg: Alyssa - La Baxter / Angelique Outpt: [place] HI: [facility] Home Infusion ([phone]) HH: [facility] Dx: Bacteremia - MSSA Abx: Cefazolin Labs: CBC with diff and CMP Imaging: none Access: PICC FYI: Events: Labs: Date WBC ANC Eos Plt SCr AST/ALT 02/28 9.7 2.2 0.3 148 0.78 Assessment/Plan: 03/01/24 - no change in abx plan Time spent: 10 minutes documented in this [...] documented as of this encounter Care Teams Industrial Electrical Technician Relationship Specialty Start Date End Date Beka Nick MD [address] [place] [address] PCP - General Family Practice 05/31/23 04/25/24 Amber Montesinos, SHAILESH Advice Clerk Transplant 11/17/19 Jil Duncan MD Consulting Physician Infectious Diseases 01/10/20 Anita Gillespie MD Medical Oncologist/Community Outreach Coordinator Medical Oncology 10/07/20 Tabitha Hurley MD [address] [place] [address] Consulting Physician Rheumatology 10/22/21 Massiel Gastelum MD [address] [place] [address] Consulting Physician Otolaryngology 08/27/22 documented as of this encounter
--- OUTSIDE RECORDS SUMMARY | 2024-10-28 06:04 | XMS_ITS | Encounter Summary ---
Author Organization [facility] Healthcare Address [address] [place] [address] Care Team Providers Care Matrix Inspector Name Role Phone Amber Montesinos RN Unavailable [phone] Jil Duncan MD Unavailable [phone] Anita Gillespie MD Unavailable [phone] Tabitha Hurley MD Unavailable [phone] Massiel Gastelum MD Unavailable [phone] Beka Nick MD Primary Care Provider [phone] Encounter Details Date Type Department Care Team (Late st Contact Info) Description 02/28/2024 Home Care Visit [facility] [address] [address] [address] [place] [address] Sherin Jones RN TELEPHONE ENCOUNTER Social History Tobacco Use Types Packs/Day Years Used Date Smoking Tobacco: Never Smokeless Tobacco: Current Chew Alcohol Use Standard Drinks/Week Comments Yes 0 (1 standard drink = 0.6 oz pur e alcohol) occassional OASIS D0700: Social Isolation Answer Da te Recorded Frequency of experiencing loneliness or isolatio n Never 02/29/2024 [facility] Utilities Answer Date Recorded In the [...] often do you attend chur ch or scientologist services? 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 Gender Identity Not on file Sexual [...] documented as of this encounter Care Teams Matrix Inspector Relationship Specialty Start Date End Date Beka Nick MD [address] [place] [address] PCP - General Family Practice 05/31/23 04/25/24 Amber Montesinos RN Boiler Coverer Helper Transplant 11/17/19 Jil Duncan MD Consulting Physician Infectious Diseases 01/10/20 Anita Gillespie MD Medical Oncologist/Machinist Outside Medical Oncology 10/07/20 Tabitha Hurley MD [address] [place] [address] Consulting Physician Rheumatology 10/22/21 Massiel Gastelum MD [address] [place] [address] Consulting Physician Otolaryngology 08/27/22 documented as of this encounter
--- OUTSIDE RECORDS SUMMARY | 2024-10-28 06:04 | XMS_ITS | Encounter Summary ---
Author Organization [facility] Address [address] [place] [address] Phone Care Team Providers Care Licensed Loan Officer Assistant Name Role Phone Amber Montesinos RN Unavailable [phone] Jil Duncan MD Unavailable [phone] Anita Gillespie MD Unavailable [phone] Tabitha Hurley MD Unavailable [phone] Massiel Gastelum MD Unavailable [phone] Beka Nick MD Primary Care Provider [phone] Encounter Details Date Type Department Care Team (Late st Contact Info) Description 03/09/2024 Telephone [facility] Oncology [facility] Advanced Medicine 7th [place] [address] [place] [address] Jeferson Fallon RN Social History Tobacco Use Types Packs/Day Years Used Date Smoking Tobacco: Never Smokeless Tobacco: Current Chew Alcohol Use Standard Drinks/Week Comments Yes 0 (1 standard drink = 0.6 oz pur e alcohol) occassional OASIS D0700: Social Isolation Answer Da te Recorded Frequency of experiencing loneliness or isolatio n Never 02/29/2024 [facility] Utilities Answer Date Recorded In the [...] often do you attend chur ch or restorationism services? 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 Informed pharmacist that patient will continue medication indefinitely due to chronic immunosuppression. Pharmacist verbalized understanding and will continue to process home therapy as ordered. 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 (HCC) Unspecified hypogammaglobulinemia documented in this encounter Care Teams Licensed Loan Officer Assistant Relationship Specialty Start Date End Date Beka Nick MD [address] [place] [address] PCP - General Family Practice 05/31/23 04/25/24 Amber Montesinos, SHAILESH Technical Mgr Transplant 11/17/19 Jil Duncan MD Consulting Physician Infectious Diseases 01/10/20 Anita Gillespie MD Medical Oncologist/Broadcast Field Supervisor Medical Oncology 10/07/20 Tabitha Hurley MD [address] [place] [address] Consulting Physician Rheumatology 10/22/21 Massiel Gastelum MD [address] [place] [address] Consulting Physician Otolaryngology 08/27/22 documented as of this encounter
--- OUTSIDE RECORDS SUMMARY | 2024-10-28 06:04 | XMS_ITS | Encounter Summary ---
Author Organization [facility] Healthcare Address [address] [place] [address] Care Team Providers Care Manipulative Therapy Specialist Name Role Phone Amber Montesinos RN Unavailable [phone] Jil Duncan MD Unavailable [phone] Anita Gillespie MD Unavailable [phone] Tabitha Hurley MD Unavailable [phone] Massiel Gastelum MD Unavailable [phone] Beka Nick MD Primary Care Provider [phone] Encounter Details Date Type Department Care Team (Latest Contact Info) Description 02/29/2024 9:00 AM CDT Home Care Visit [facility] [address] [address] [address] [place] [address] Sherin Jones, SHAILESH SN NON OASIS START OF CARE Social History Tobacco Use Types Packs/Day Years [...] any clubs o r organizations such as buddhism groups, unions, fraternal or athletic groups, or [...] on file 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 Gender Identity Not on file Sexual Orientation Straight 08/22/2021 9: 23 AM CDT documented as of this encounter Last Filed Vital Signs Vital Sign Reading Time Taken Comments Blood Pressure 90/60 02/29/2024 11:32 AM CDT Pulse 71 02/29/2024 11:32 AM CDT Temperature 36.7 ??C (98.1 ??F) 02/29/2024 11:32 AM C DT Respiratory Rate 16 02/29/2024 11:32 AM CDT Oxygen Saturation 98% 02/29/2024 11:32 AM CDT Inhaled Oxygen Concentration - - Weight 63.5 kg (140 lb) 02/29/2024 11:32 AM CDT Height - - Body Mass Index 21.29 02/28/2024 9:10 PM CDT documented in this encounter Miscellaneous Notes * Home Health/Infusion Sherin Chand RN - 02/29/2024 11:19 AM CDT SITUATION Focus of Care: Antibiotic thepary: Cefazolin Caregivers available: Yes BACKGROUND Pertinent Medical History/Hospitalizations: Prior Level of Functioning: Independent Current Living Conditions/Safety Hazards: No Issues ASSESSMENT Abnormal assessment findings: None Medication Issues: None Re-hospitalization risk: Low Barriers to care/social determinants: None RECOMMENDATIONS POC confirmed with : Plan for my discipline: SN for labs, dressing change and line change weekly Other disciplines ordered/recommended: None Supply/HME/equipment needs or issues: None Follow ups needed: Weekly * Home Health Visit Narrative - Sherin Jones RN - 02/29/2024 11:19 AM CDT Patient seen for SOC and labs. Tolerated Well. * Home Health Plan for Next Visit - Sherin Jones RN - 02/29/2024 11:19 AM CDT Reason for today's visit SOC and labs Discuss plan of care with patient Discharge planning ongoing until SN is no longer need Plan for next visit weekly documented in this encounter Plan of Treatment [...] AM CDT documented as of this encounter Home Health Visit - Care Plan Visit Details Visit Type -SN Non-OASIS Sta rt of Care Discipline -Care Home Problems Problem Description Start Date Status Goals Interventions Collect Specimen/Lab Draw Disciplines: Care Home Management of specimen samples, including lab draws, stool, urine, sputum & wound cultures 02/29/2024 Active - 1 problem intervention scheduled/documen mohsen in this visit Medications Disciplines: Care Home Management of IV Medications 02/29/2024 Active - 1 problem intervention scheduled/documen mohsen in this visit Safety concerns Disciplines: Care Home Safety needs related to infusion administration 02/29/2024 Active - 1 problem intervention scheduled/documen mohsen in this visit IV Therapy-Manageme nt, Education, and Maintenance Disciplines: Care Home IV Management, education, and maintenance for home [...] Collect Specimen/Draw Labs Problem:Collect Specimen/Lab Draw Completed SN seen pt to draw labs: CBC and CMP from PICC line. Tolerated well. No difficulty noted. Instruct on Medication Management Description: Instruct patient/caregiver in medication administration, purpose, dosages, preparation, scheduling, side effects, food/drug interactions, storage, drug allergies, and potential complications. Medications instructed on: Cefazolin. Problem:Medications Scheduled SN Instructed patient/caregiver on flushing line with 10 ml normal saline and then Heparin 5 ml daily and PRN for problems. Patient/caregiver may do in SN absence. Medications instructed on: Cefazolin. Instruct on IV [...] Problem:IV Therapy-Management, Education, and Maintenance Completed PICC line : SN Instructed patient/caregiver to assess insertion site every 4 hours during waking hours for signs of complications and to report signs/symptoms or altered dressing integrity immediately, and on not allowing blood pressures or needle sticks to be done in PICC line arm. Instructed patient/caregiver on flushing line with 10 ml normal saline and then Heparin 5 ml daily and PRN for problems. Patient/caregiver may do in SN absence. Patient verbalized understanding. IV Management and Education Description: Instruct patient/caregiver [...] Problem:IV Therapy-Management, Education, and Maintenance Completed SN Instructed patient/caregiver on Reason for Therapy: Cefazolin, to assess the insertion site once a day if not in use for continuous infusion, how to gather supplies, how to restock IV supplies in the home, prepare supplies, inspecting solution and supplies before infusing. Skilled Nurse also instructed patient/caregiver on how to properly administer medication, normal saline, and heparin, disconnecting IV medication and waste disposal. Skilled nurse instructed patient and caregiver to monitor for signs and symptoms of adverse medication reaction such as: Redness, warmth, drainage, temp above 100.5, rash, shortness of breath, tingling, numbness, restlessness, nausea and vomiting and to report to SN or physician. Skilled nurse to instructed patient to contact home health agency if line is not functioning properly. Patient verbalized understanding to all teaching. Educate Family on Infection Prevention Description: Instructed family on signs and symptoms of infection IE: fever, odor, change in color, increased amount of drainage, purulent drainage, warmth. Problem:Infection Prevention Goal:Verbalize signs of infection Completed SN Instructed family on signs and symptoms of infection IE: fever, odor, change in color, increased amount of drainage, purulent drainage, warmth from PICC line site. Patient verbalized understanding. Aspects of Care Description: Instruct patient/caregiver on universal precautions and home infection control measures Problem:Infection Prevention Goal:Verbalize signs of infection Completed SN Instructed patient/caregiver on infection prevention and signs of [...] patient may shower, instruct patient to cover dressing Assess safety Description: Assess patient safety Problem:Safety concerns Goal:Demonstrate use of safety precautions Scheduled documented in this encounter Care Teams Manipulative Therapy Specialist Relationship Specialty Start Date End Date Beka Nick MD [address] [place] [address] PCP - General Family Practice 05/31/23 04/25/24 Amber Montesinos, SHAILESH Child Welfare Specialist Transplant 11/17/19 Jil Duncan MD Consulting Physician Infectious Diseases 01/10/20 Anita Gillespie MD Medical Oncologist/Eyewear Manufacturing Tech Medical Oncology 10/07/20 Tabitha Hurley MD [address] [place] [address] Consulting Physician Rheumatology 10/22/21 Massiel Gastelum MD [address] [place] [address] Consulting Physician Otolaryngology 08/27/22 documented as of this encounter
--- OUTSIDE RECORDS SUMMARY | 2024-10-28 06:04 | XMS_ITS | Encounter Summary ---
Author Organization [facility] Healthcare Address [address] [place] [address] Care Team Providers Care Manager Urgent Care Name Role Phone Amber Montesinos RN Unavailable [phone] Jil Duncan MD Unavailable [phone] Anita Gillespie MD Unavailable [phone] Tabitha Hurley MD Unavailable [phone] Massiel Gastelum MD Unavailable [phone] Beka Nick MD Primary Care Provider [phone] Encounter Details Date Type Department Care Team (Latest Contact Info) Description 03/07/2024 3:03 PM CDT - 03/07/2024 11:59 PM CDT Hospital Encounter [address] [id number] Discharge Disposition: Discharge to home or self care Social History Tobacco Use Types Packs/Day Years Used Date Smoking Tobacco: Never Smokeless Tobacco: Current Chew Alcohol Use Standard Drinks/Week Comments Yes 0 (1 standard drink = 0.6 oz pur e alcohol) occassional OASIS D0700: Social Isolation Answer Da te Recorded Frequency of experiencing loneliness or isolatio n Never 02/29/2024 [facility] Utilities Answer Date Recorded In the [...] on file 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 Gender Identity Not on file Sexual [...] a day 60 tablet 11 02/26/2024 5 tacrolimus 0.5 mg immediate-releas e capsuleIndicatio ns:Prevention [...] tabs (40mg) by mouth daily 03/03/2025 4 [facility] heparin lock flush, porcine,Indicati ons:LINE CARE Infuse [...] Associated Diagnosis Comments GLUCOSE, RANDOM (OUTREACH) Routine 03/07/2024 12:30 PM CDT EGFR Routine 03/07/2024 12:30 PM CDT DIFFERENTIAL AUTO Routine 03/07/2024 12: 30 PM CDT COMPREHENSIVE METABOLIC PANEL WITHOUT GLUCOSE (OUTREACH) Routine 03/07/2024 12:30 PM CDT CBC WITH AUTO DIFFERENTIAL Routine 03/07/2024 12:30 PM CDT documented in this encounter Results * eGFR (03/07/2024 12:30 PM CDT) eGFR >90 >=60 mL/min/1. 73 m2 [...] interpretive data was last reviewed 2021. Blood 03/07/2024 12:3 0 PM CDT 03/07/2024 2:55 PM CDT us Thao Merino DO LAB BLOOD ORDERABLES Final Res ult [facility] [place] [address] * (ABNORMAL) Differential, auto (03/07/2024 12:30 PM CDT) Neutrophil abs 1.2(L) 1.5 - 6.5 K/cumm Comment:Testing performed by : [facility], [address] [place] [address] Imm gran abs 0.1 0.0 - 0.1 K/cumm [facility] Lymphocyte abs 3.0 0.8 - 3.3 K/cumm [facility] Monocyte abs 0.7 0.2 - 0.8 K/cumm [facility] Eosinophil abs 0.2 0.0 - 0.5 K/cumm [facility] Basophil abs 0.1 0.0 - 0.1 K/cumm [facility] Neutrophil pct 22.8 % [facility] Comment: Interpretive Data Percent cell count reference ranges are not reported, since discordance with absolute values may lead to misinterpretation of CBC data. Current Interpretive Data was last revised on 2018. Imm gran pct 1.0 % [facility] Comment: Interpretive Data Percent cell count reference ranges are not reported, since discordance with absolute values may lead to misinterpretation of CBC data. Current Interpretive Data was last revised on 2018. Lymphocyte pct 57.6 % [facility] Comment: Interpretive Data Percent cell count reference ranges are not reported, since discordance with absolute values may lead to misinterpretation of CBC data. Current Interpretive Data was last revised on 2018. Monocyte pct 13.4 % [facility] Comment: Interpretive Data Percent cell count reference ranges are not reported, since discordance with absolute values may lead to misinterpretation of CBC data. Current Interpretive Data was last revised on 2018. Eosinophil pct 4.2 % [facility] Comment: Interpretive Data Percent cell count reference ranges are not reported, since discordance with absolute values may lead to misinterpretation of CBC data. Current Interpretive Data was last revised on 2018. Basophil pct 1.0 % [facility] Comment: Interpretive Data Percent cell count reference ranges are not reported, since discordance with absolute values may lead to misinterpretation of CBC data. Current Interpretive Data was last revised on 2018. Blood 03/07/2024 12:3 0 PM CDT 03/07/2024 3:06 PM CDT us Thao Merino DO LAB BLOOD ORDERABLES Final Res ult [facility] [place] [address] * (ABNORMAL) CBC with auto differential (03/07/2024 12:30 PM CDT) WBC 5.2 3.8 - 9.9 K/cumm Comment:Testing performed by : [address] [address] Hgb 11.6(L) 13.0 - 17.5 g/dL [facility] Comment:Testing performed by : [address] [address] Hct 33.5(L) 38.9 - 50.3 % [facility] Comment:Testing performed by : [address] [address] Plt 161 150 - 400 K/cumm [facility] Comment:Testing performed by : [address] [address] MPV 11.5 9.1 - 12.3 fL [facility] RBC 3.09(L) 4.30 - 5.80 M/cumm [facility] MCV 108.4(H) 81.3 - 96.4 fL [facility] MCH 37.5(H) 27.1 - 33.3 pg [facility] MCHC 34.6 32.3 - 35.7 g/dL [facility] RDW CV 20.4(H) 11.1 - 14.9 % [facility] RDW SD 80.4(H) 35.7 - 48.1 fL [facility] NRBC abs 0.00 0.00 - 0.01 K/cumm [facility] Blood 03/07/2024 12:3 0 PM CDT 03/07/2024 3:06 PM CDT us Thao Merino DO LAB BLOOD ORDERABLES Final Res ult Performing Organization Address [facility] Co de Phone Number [facility] [place] [address] * Glucose, random (Outreach) (03/07/2024 12:30 PM CDT) [facility] Signature Glucose 158 70 - 199 mg/dL Comment: Interpretive Data [...] interpretive data was last revised 2022. Blood 03/07/2024 12:3 0 PM CDT 03/07/2024 2:55 PM CDT us Thao Merino DO LAB BLOOD ORDERABLES Final Res ult Performing Organization Address [facility] Co de Phone Number [facility] [place] [address] * (ABNORMAL) Comprehensive metabolic panel, without glucose (Outreach) (03/07/2024 12:30 PM CDT) Sodium 137 135 - 145 mmol/L Comment:Testing performed by : [facility], [address] [facility] [address] Potassium, pl 4.5 3.3 - 4.9 mmol/L [facility] Chloride 107 97 - 110 mmol/L [facility] CO2 22 22 - 32 mmol/L [facility] Anion gap 8 2 - 15 mmol/L [facility] BUN 16 6 - 25 mg/dL [facility] Creatinine 1.10 0.80 - 1.30 mg/dL [facility] Calcium 8.3(L) 8.5 - 10.3 mg/dL [facility] Protein, pl 5.2(L) 6.5 - 8.5 g/dL [facility] Albumin 3.2(L) 3.5 - 5.0 g/dL [facility] Bilirubin, total 1.7(H) 0.1 - 1.2 mg/dL [facility] Alk phos 204(H) 40 - 130 Units/L [facility] AST 39 10 - 50 Units/L [facility] ALT 11 7 - 55 Units/L [facility] Blood 03/07/2024 12:3 0 PM CDT 03/07/2024 2:55 PM CDT us Taho Merino DO LAB BLOOD ORDERABLES Final Res ult [facility] [place] [address] documented in this encounter Visit Diagnoses Not on filedocumented in this encounter Care Teams Manager Urgent Care Relationship Specialty Start Date End Date Beka Nick MD [address] [place] [address] PCP - General Family Practice 05/31/23 04/25/24 Amber Montesinos, SHAILESH Boot Lace Cutter Machine Transplant 11/17/19 Jil Duncan MD Consulting Physician Infectious Diseases 01/10/20 Anita Gillespie MD Medical Oncologist/Construction Lineman Medical Oncology 10/07/20 Tabitha Hurley MD [address] [facility] [address] [place], [place] [id number] Consulting Physician Rheumatology 10/22/21 Massiel Gastelum MD [address] [place] [address] Consulting Physician Otolaryngology 08/27/22 documented as of this encounter
--- OUTSIDE RECORDS SUMMARY | 2024-10-28 06:04 | XMS_ITS | Encounter Summary ---
Author Organization [facility] Healthcare Address [address] [place] [address] Care Team Providers Care Tower Helper Name Role Phone Amber Montesinos RN Unavailable [phone] Jil Duncan MD Unavailable [phone] Anita Gillespie MD Unavailable [phone] Tabitha Hurley MD Unavailable [phone] Massiel Gastelum MD Unavailable Beka Nick MD Primary Care Provider [phone] Reason for Visit * Reason Comments Post-op Problem Encounter Details Date Type Department Care Team (Late st Contact Info) Description 02/28/2024 9:46 PM CDT - 02/29/2024 3:35 AM CDT Emergency [facility] Emergency Department [address] [place] [id number] Cruz Rowe MD [address] [place] [address] Philip Cortes MD [address] [place] [address] Status post peripherally inserted central catheter (PICC) central line placement (Primary Dx); Bacteremia Discharge Disposition: Discharge to home or self care Social History Tobacco Use Types Packs/Day Years Used Date Smoking Tobacco: Never Smokeless Tobacco: Current Chew Alcohol Use Standard Drinks/Week Comments Yes 0 (1 standard drink = 0.6 oz pur e alcohol) occassional OASIS D0700: Social Isolation Answer Da te Recorded Frequency of experiencing loneliness or isolatio n Never 02/29/2024 [facility] Utilities Answer Date Recorded In the past 12 months has e [employer], gas, oil, or water company threatened to [...] on file 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 Gender Identity Not on file Sexual Orientation Straight 08/22/2021 9: 23 AM CDT documented as of this encounter Last Filed Vital Signs Vital Sign Reading Time Taken Comments Blood Pressure 111/68 02/29/2024 3:00 AM CDT Pulse 71 02/29/2024 3:00 AM CDT Temperature 36.8 ??C (98.2 ??F) 02/28/2024 9:10 PM CD T Respiratory Rate 18 02/29/2024 3:00 AM CDT Oxygen Saturation 97% 02/29/2024 3:00 AM CDT Inhaled Oxygen Concentration - - Weight 63.5 kg (140 lb) 02/28/2024 9:10 PM CDT Height 172.7 cm (5' 8 ) 02/28/2024 9:10 PM CDT Body Mass Index 21.29 02/28/2024 9:10 PM CDT documented in this encounter Discharge Instructions * Discharge Instructions* Fredi Kang MD - 02/29/2024 3:20 AM CDT Continue taking your antibiotics as prescribed, follow up with your specialists as scheduled. Return to emergency department as needed for repeat PICC line leaking, signs of infection including redness or pus discharge, persistent vomiting, fevers, other concerning symptoms. documented in this encounter Medications at Time [...] mouth daily 60 tablet 1 12/02/2023 4 [facility] heparin lock flush, porcine,Indicati ons:LINE CARE [...] documented in this encounter Procedure Notes * Shanelle Mullen, RN - 02/29/2024 2:50 AM CDT Images from the original note were not included. Vascular Access Nurse: Procedure Note Summary of treatment provided to patient today is as follows : . Vascular Access Documentation (last 4 hours) [facility] Additional Procedures Row Name 02/29/24 0245 Procedures Time in 0235 -ST Time out 0300 -ST Time Calculation (min) 25 min -ST Vascular Access Procedures PICC line assessment;Check PICC line -ST PICC Line Check Dressing intact PICC flushed without difficulty, no leak noted. Dressing changed per [facility] policy and secure port glue reapplied at insertion site. Dressing C/D/I. -ST User Shah (r) = Recorded By, (t) = Taken By, (c) = Cosigned By Initials Name Shanelle Castillo, RN Plan: Follow up: R SL Power PICC flushed with 20ml NS, no leaking noted at PICC insertion site. Dressing changed per [facility] policy, secure port glue re applied. New dressing C/D/I. 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 He needs his PICC line for b.i.d. Ancef for MSSA bacteremia. The PICC line was placed by the IV therapy team on February 25, 2024. He is here because his PICC line is leaking. I took down the dressing and he is leaking from aroundthe insertion site. The insertion site appears clean and sterile. The line draws and flushes without issues. We pulled back on the line initially to make sure that we took out all the heparin in the line. Then we flushed it with no issues. We then redressed it very sterilely and he was noted to have some leakage around his insertion site. I am currently trying to reach out to the IV therapy team. 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 In the ED, patient found to be febrile to 38.8C, tachypneic (40), tachycardic (120s). Patient given Tylenol and started on oxygen. Patient given IV fluids (a total of 3L after B/P started to drop and lactate back high). Significant Labs: Lactate 3.3 -> 3.4 -> 5, iCal 4, Cr 1.6, Na 127, BUN 26, tbili 3.9, Alk Phos 175, AST 69, Mag 1.3, Phos 2.2, WBC 24.1, Hgb 12.7, Plt 94. RVP + for Rhinovirus. Patient with CXR which shows right sided pneumonia. Patient then to CT and that shows left lower lobe cavitary pneumonia and left pleural effusion. Patient started on Azithro, Cefepime, Flagyl, Vancomycin. Patient was also started on norepinephrine for hypotension. Patient given Phos, Calcium, and magnesium repletion. Patient also given his home ursodiol, letermovir, and valganciclovir. Patient then admitted to the Oncology ICU for further management. Weaned off pressors. Subsequently transferred to the floor. Patient History: Patient Active Problem List Diagnosis Date Noted Bacteremia 02/21/2024 Pneumonia of left lung due to infectious organism, unspecified part of lung 02/18/2024 Shock ([facility] ([facility]) 02/18/2024 Bicytopenia 02/18/2024 Hypocalcemia 02/18/2024 Hyponatremia 02/18/2024 Hypoalbuminemia 02/18/2024 CVID (common variable immunodeficiency) ([facility]) 02/18/2024 Portal hypertension ([facility] ([facility]) 02/18/2024 History of pulmonary embolus (PE) 02/18/2024 Subacute cough 11/29/2023 Edema of left lower extremity 10/11/2023 Parapneumonic effusion 10/11/2023 Acute respiratory failure with hypoxia ([facility] ([facility]) 10/09/2023 Acute superficial DVT of [...] 01/06/2019 Community acquired pneumonia 01/06/2019 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 01/06/2019 PTLD [...] > 5 YEARS N/A 12/26/2021 LIVER TRANSPLANT 1998 OTHER SURGICAL HISTORY 01/06/2019 [...] (Added by TW Conv) Anesthesia problems Other Social History Tobacco Use Smoking status: Never Smokeless tobacco: Current Types: Chew Vaping Use Vaping status: Never Used Substance and Sexual Activity Alcohol use: Yes Comment: occassional Drug use: Yes Types: Alcohol Sexual activity: Defer Social History Social History Narrative Living Situation: Residential institution 10/05/17 (Added by [employer] [facility]) Review of Systems Review of Systems No acute complaints other than the leaking picc line Physical Exam ED Triage Vitals [02/28/240] Temp Pulse Resp BP SpO2 36.8 ??C (98.2 ??F) 85 16 127/70 99 % Temp src Heart Rate Source Patient Position BP Location FiO2 (%) Temporal -- -- -- -- Height Height Method Weight Weight Method 1.727 m (5' 8 ) Stated 63.5 kg (140 lb) -- Physical Exam PICC insertion site appears to be healthy with no signs of infection. Dressing was changed in a sterile fashion. There is very slow leakage around the PICC line insertion site. The line draws and flushes with no issues. The heparin flush was pulled out of the line before testing the line. The line was redressed and loaded with heparin again. Everything was performed in the sterile fashion. He is still experiencing leakage from around the line site. MDM Medical Decision Making Risk Prescription drug management. Working on contacting IV therapy team. Charge nurses are working on trying to reach out to them to see what we can do about the line. ED Course as of 03/01/24 1601 Time: 02/28 0014 Comment: Charge nurses are working on getting a hold of iv therapy, I called multiple times to try and get them to see him. By: Cruz Rowe MD Time: 02/29 28 Comment: Sign out Dr. Rowe leaking PICC line/bacteremia, nursing calling IV therapy for eval or replace it Immunosuppressed. h/o autimmune hepatitis, getting IV abx for bacteremia MSSA/ancef (5a next dose). By: Philip Cortes MD Time: 02/28 306 Comment: Seen by IV therapy who fixed the leaking PICC line By: Fredi Kang MD Time: 02/28 318 Comment: The patient feels well, will take abx infusion at home By: Fredi Kang MD Final diagnoses: Status post peripherally inserted central catheter (PICC) central line placement - leaking from picc line site w/ no signs of infection Bacteremia This note was dictated using an automatic voice recognition software. Given the limitations of thistechnology, errors in dictation may be present so please take that and context into account when reading this note. Cruz Rowe MD 03/01/24 1601 Cruz Rowe MD 03/01/24 5322 * Magda Dumont RN - 02/28/2024 9:46 PM CDT Bed: 3[facility] Expected date: Expected time: Means of arrival: Comments: Magda Grant RN 02/28/24 2146 * Magda Dumont RN - 02/28/2024 9:08 PM CDT Patient presents to ED with complaint of his PICC line leaking. Patient states that he had the PICCline placed on Wednesday evening and has been receiving antibiotic treatments through it daily. The dressing is due to be changed tomorrow. He noticed the line to be leaking about 30 minutes after use today. No redness or swelling noted to the area. Dressing intact with some dried liquid to the left interior portion. documented in this encounter Miscellaneous Notes * Plan of Care - Katelyn Norris RN - 02/29/2024 1:37 AM CDT 02/29/24 0136 Type Readmission </= 30 Days? Yes High Utilizer >/= 4 Hospitalizations in 12 Months? Yes Is this Patient Active with an Outpatient Case Management Program? No Record Review of Prior Admission Was this Readmission Planned? No Disposition at Prior Admit D/C Home with Was the D/C Location what the Care Team Recommended? Yes Functional Status at Index D/C Independent Cognitive Status at Index D/C A&O x3 Is Patient ACO No Patient Interview Patient Discharged prior to Interview No Did Patient have assigned PCP on Discharge? Yes Was Appointment made on Index Discharge? Yes Appointment made with Specialist What Specialty? ONC CAM TXP CAM Number of Days from Index D/C 8-14 Who Provided the Information Other (Comment) In Patient's own words, what led to return to Hospital Bacteremia and Leaking PICC Line Was Patient Discharged to Home Yes Primary Readmission Reason Other (Comment) ED CM received automated alert that patient has had an inpatient admission <30 days (ED treatment team aware).DX: Bacteremia with C/O PICC line leaking with recent DC/BJC 24. After requiring treatment for Acute Resp Failure w/Hypoxia MSSA Bacteremia with H/O Common Variable Immunodeficiency2/2 Liver Transplant.ED workup/orders/tx plan is pending at the time this note was entered.Please contact ED CM ([phone]) or ED SW ([phone]) for needs.NO SW needs identified. documented in this encounter Plan of Treatment Scheduled Procedures Name Priority Associated Diagnoses Date/Ti me COLONOSCOPY Encounter for screening for colorectal cancer in high risk patient Family history of rectal cancer documented as of this encounter Visit Diagnoses Diagnosis Status post peripherally inserted central catheter (PICC) central line placement- Primary Bacteremia documented in this encounter Administered Medications Inactive Administered Medications - up to 3 most recent administrations Medication Order MAR Action Action Date Dose Rate Site ceFAZolin (ANCEF) 2,000 mg/20 mL in sterile water (premix) 2,000 mg 2,000 mg, intravenous, at 400 mL/hr, Administer over 3 Minutes, Every 8 hours scheduled, First dose on Wed02/29/24 at 0500, Indications: Blood Stream/Endovascular InfectionIndications:Blood Stream/Endovascular Infection heparin 10 unit/mL flush 30 Units 30 Units (3 mL), intra-catheter, Once, On Wed02/28/24 at 2245, For 1 dose Given 02/28/2024 11:33 PM CDT 30 Units documented in this encounter Active and Recently Administered Medications Times are shown in CDT. Scheduled Medication Order 02/27/2024 02/28/2024 02/29/2024 ceFAZolin (ANCEF) 2,000 mg/20 mL in sterile water (premix) 2,000 mg 2,000 mg, intravenous, at 400 mL/hr, Administer over 3 Minutes, Every 8 hours scheduled, First dose on Wed02/29/24 at 0500, Indications: Blood Stream/Endovascular Infection heparin 10 unit/mL flush 30 Units (COMPLETED) 30 Units (3 mL), intra-catheter, Once, On Wed02/28/24 at 2245, For 1 dose 2333 (Given - Provider: Noble Felix, RN) documented in this encounter Orders Medications Ordered That John ht Not Have Been Administered Count Last Ordered Date First Ordered Date ceFAZolin (ANCEF) 2,000 mg/2 0 mL in sterile water (premix) 2,000 mg 1 02/29/2024 Consult Count Last Ordered Date First Orde red Date IP CONSULT TO VASCULAR ACCESS TEAM 1 2023 documented in this encounter Additional Health Concerns Infection Onset Date Last Indicated Resolved Time Rhino/Enterovirus 02/18/2024 02/19/2024 03/04/2024 3:05 AM CDT documented as of this encounter Care Teams Tower Helper Relationship Specialty Start Date End Date Beka Nikc MD [address] [place] [address] PCP - General Family Practice 05/31/23 04/25/24 Amber Montesinos, SHAILESH Logistics Team Leader Transplant 11/17/19 Jil Duncan MD Consulting Physician Infectious Diseases 01/10/20 Anita Gillespie MD Medical Oncologist/[place] Medical Oncology 10/07/20 Tabitha Hurley MD [address] [place] [address] Consulting Physician Rheumatology 10/22/21 Massiel Gastelum MD [address] [place] [address] Consulting Physician Otolaryngology 08/27/22 documented as of this encounter
--- OUTSIDE RECORDS SUMMARY | 2024-10-28 06:04 | XMS_ITS | Encounter Summary ---
Author Organization [facility] Healthcare Address [address] [place] [address] Care Team Providers Care Subpoena Server Name Role Phone Amber Montesinos RN Unavailable [phone] Jil Duncan MD Unavailable [phone] Anita Gillespie MD Unavailable [phone] Tabitha Hurley MD Unavailable [phone] Massiel Gastelum MD Unavailable [phone] Beka Nick MD Primary Care Provider [phone] Encounter Details Date Type Department Care Team (Latest Contact Info) Description 02/29/2024 12:45 PM CDT - 02/29/2024 11:59 PM CDT Hospital Encounter [address] [address] Discharge Disposition: Discharge to home or self care Social History Tobacco Use Types Packs/Day Years Used Date Smoking Tobacco: Never Smokeless Tobacco: Current Chew Alcohol Use Standard Drinks/Week Comments Yes 0 (1 standard drink = 0.6 oz pur e alcohol) occassional OASIS D0700: Social Isolation Answer Da te Recorded Frequency of experiencing loneliness or isolatio n Never 02/29/2024 [facility] Utilities Answer Date Recorded In the [...] often do you attend chur ch or restorationist services? 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 73 [...] interpretive data was last reviewed 2021. Blood 02/29/2024 12:4 5 PM CDT 02/29/2024 2:04 PM CDT us Thao WolfgangMarco Merino DO LAB BLOOD ORDERABLES Final Res ult [facility] [address] [place] [address] * (ABNORMAL) Differential, auto (02/29/2024 12:45 PM CDT) Neutrophil abs 2.2 1.5 - 6.5 K/cumm Imm gran abs 0.1 0.0 - 0.1 K/cumm [facility] Lymphocyte abs 5.6(H) 0.8 - 3.3 K/cumm [facility] Monocyte abs 1.5(H) 0.2 - 0.8 K/cumm [facility] Eosinophil abs 0.3 0.0 - 0.5 K/cumm [facility] Basophil abs 0.1 0.0 - 0.1 K/cumm [facility] Neutrophil pct 22.7 % [facility] Comment: Interpretive Data Percent cell count reference ranges are not reported, since discordance with absolute values may lead to misinterpretation of CBC data. Current Interpretive Data was last revised on 2018. Imm gran pct 0.8 % [facility] Comment: Interpretive Data Percent cell count reference ranges are not reported, since discordance with absolute values may lead to misinterpretation of CBC data. Current Interpretive Data was last revised on 2018. Lymphocyte pct 58.1 % [facility] Comment: Interpretive Data Percent cell count reference ranges are not reported, since discordance with absolute values may lead to misinterpretation of CBC data. Current Interpretive Data was last revised on 2018. Monocyte pct 15.1 % [facility] Comment: Interpretive Data Percent cell count reference ranges are not reported, since discordance with absolute values may lead to misinterpretation of CBC data. Current Interpretive Data was last revised on 2018. Eosinophil pct 2.6 % [facility] Comment: Interpretive Data Percent cell count reference ranges are not reported, since discordance with absolute values may lead to misinterpretation of CBC data. Current Interpretive Data was last revised on 2018. Basophil pct 0.7 % [facility] Comment: Interpretive Data Percent cell count reference ranges are not reported, since discordance with absolute values may lead to misinterpretation of CBC data. Current Interpretive Data was last revised on 2018. Blood 02/29/2024 12:4 5 PM CDT 02/29/2024 2:01 PM CDT us Thao Merino DO LAB BLOOD ORDERABLES Final Res ult Performing Organization Address [facility] Co de Phone Number [facility] [address] [place] [address] * (ABNORMAL) CBC with auto differential (02/29/2024 12:45 PM CDT) WBC 9.7 3.8 - 9.9 K/cumm Hgb 11.5(L) 13.0 - 17.5 g/dL [facility] Hct 32.3(L) 38.9 - 50.3 % [facility] Plt 148(L) 150 - 400 K/cumm [facility] MPV 11.4 9.1 - 12.3 fL [facility] RBC 3.05(L) 4.30 - 5.80 M/cumm [facility] MCV 105.9(H) 81.3 - 96.4 fL [facility] MCH 37.7(H) 27.1 - 33.3 pg [facility] MCHC 35.6 32.3 - 35.7 g/dL [facility] CH RDW CV 21.4(H) 11.1 - 14.9 % [facility] RDW SD 81.1(H) 35.7 - 48.1 fL [facility] NRBC abs 0.00 0.00 - 0.01 K/cumm [facility] Blood 02/29/2024 12:4 5 PM CDT 02/29/2024 2:01 PM CDT Thao Merino DO LAB BLOOD ORDERABLES Final Res ult Performing Organization Address City/[facility]/ZIP Co de Phone Number [facility] [address] [place] [address] * (ABNORMAL) Comprehensive metabolic panel (02/29/2024 12:45 PM CDT) Sodium 139 135 - 145 mmol/L Potassium, pl 4.0 3.3 - 4.9 mmol/L [facility] Chloride 109 97 - 110 mmol/L [facility] CO2 22 22 - 32 mmol/L [facility] Anion gap 8 2 - 15 mmol/L [facility] BUN 16 6 - 25 mg/dL [facility] Creatinine 0.78(L) 0.80 - 1.30 mg/dL [facility] Comment:Icteric sample, test results may be affected. Glucose 99 70 - 199 mg/dL [facility] Comment: Interpretive Data Fasting glucose >/= 126 [...] interpretive data was last revised 2022. Calcium 8.4(L) 8.5 - 10.3 mg/dL [facility] Bilirubin, total 2.4(H) 0.1 - 1.2 mg/dL [facility] Protein, pl 4.6(L) 6.5 - 8.5 g/dL [facility] Albumin 2.7(L) 3.5 - 5.0 g/dL [facility] Alk phos 211(H) 40 - 130 Units/L [facility] ALT 14 7 - 55 Units/L [facility] AST 48 10 - 50 Units/L [facility] Blood 02/29/2024 12:4 5 PM CDT 02/29/2024 2:00 PM CDT us Thao Merino DO LAB BLOOD ORDERABLES Final Res ult [facility] [address] [place] [address] documented in this encounter Visit Diagnoses Not on filedocumented in this encounter Additional Health Concerns Infection Onset Date Last Indicated Resolved Time Rhino/Enterovirus 02/18/2024 02/19/2024 03/04/2024 3:05 AM CDT documented as of this encounter Care Teams Subpoena Server Relationship Specialty Start Date End Date Beka Nick MD [address] [place] [address] PCP - General Family Practice 05/31/23 04/25/24 Amber Montesinos, SHAILESH Industrial Plant Custodian Transplant 11/17/19 Jil Duncan MD Consulting Physician Infectious Diseases 01/10/20 Anita Gillespie MD Medical Oncologist/Cardiology Teacher Medical Oncology 10/07/20 Tabitha Hurley MD [address] [place] [address] Consulting Physician Rheumatology 10/22/21 Massiel Gastelum MD [address] [place] [address] Consulting Physician Otolaryngology 08/27/22 documented as of this encounter
--- OUTSIDE RECORDS SUMMARY | 2024-10-28 06:05 | XMS_ITS | Encounter Summary ---
Author Organization [facility] Address [address] [place] [address] Phone Care Team Providers Care Bulk Delivery Driver Name Role Phone Amber Montesinos RN Unavailable [phone] Jil Duncan MD Unavailable [phone] Anita Gillespie MD Unavailable [phone] Tabitha Hurley MD Unavailable [phone] Massiel Gastelum MD Unavailable [phone] Beka Nick MD Primary Care Provider [phone] Encounter Details Date Type Department Care Team (Late st Contact Info) Description 01/05/2024 9:30 AM MANAGER GARAGE Office Visit [facility] Gasteroenterology [address] [facility] Advanced Medicine 12th [place] [address] [place] [address] Susan Zhou MD [address] [place] [address] History of liver transplant (CMS/HCC) (HCC) (Primary Dx); 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HCC) Social History Tobacco Use Types Packs/Day Years Used Date Smoking Tobacco: Never Smokeless Tobacco: Current Chew Alcohol Use Standard Drinks/Week Comments Yes 0 (1 standard drink = 0.6 oz pur e alcohol) occassional OASIS D0700: Social Isolation Answer Da te Recorded Frequency of experiencing loneliness or isolatio n Never 09/04/2023 [facility] Utilities Answer Date Recorded In the past 12 months has th e electric, gas, oil, or water company threatened to shut off services in your home? No 10/04/2023 Social Connection and Isolat ion Panel [NHANES] Answer Date Recorded In a typical week, how many times do you talk on the phone with family, friends, or neighbors? More than three times a week 10/04/2023 How often do you get togethe r with friends or relatives? More than three times a week 10/04/2023 How often do you attend chur ch or congregational services? 1 to 4 times per year 10/04/2023 Do you belong to any clubs o r organizations such as alevism groups, unions, fraternal or athletic groups, or school groups? No 10/04/2023 How often do you attend meet ings of the clubs or organizations you belong to? Never 10/04/2023 Are you , , di vorced, , never , or living with a partner? Never 10/04/2023 AUDIT-C Answer Date Recorded Q1: How often [...] medical care, and heating? Not very hard 10/04/2023 PHQ-2 Answer Date Recorded PHQ-2 Total Score (If total score is 3 or more points, staff should administer the PHQ-9) 0 10/04/2023 Hunger Vital Sign Answer Date Recorded Within the past 12 months, y ou worried that your food would run out before you got the money to buy more. Never true 10/04/20 23 Within the past 12 months, t he food you bought just didn't last and you didn't have money to get more. Never true 10/04/2023 PRAPARE - Transportation Answer Date Re corded In the past 12 months, has l ack of transportation kept you from medical appointments or from getting medications? No 01/2023 In the past 12 months, has l ack of transportation kept you from meetings, work, or from getting things needed for daily living? No 10/04/2023 Housing Stability Vital Sign Answer Toribio e Recorded In the last 12 months, was t here a time when you were not able to pay the mortgage or rent on time? No 10/04/2023 In the last 12 months, how many places have you lived? 1 10/04/2023 In the last 12 months, was t here a time when you did not have a steady place to sleep or slept in a group home (including now)? No 10/04/2023 Personal Safety Answer Date Recorded Have you ever been in or are you currently in a harmful physical or emotional relationship or is someone making you feel afraid or unsafe? Denies 10/03/2023 Sex and Gender Information Value Date Recorded Sex Assigned at Not on file 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 GARAGE Gender Identity Not on file Sexual Orientation Straight 08/22/2021 9: 23 AM CDT documented as of this encounter Last Filed Vital Signs Vital Sign Reading Time Taken Comments Blood Pressure 112/76 01/05/2024 9:25 AM MANAGER GARAGE Pulse 78 01/05/2024 9:25 AM MANAGER GARAGE Temperature 36.1 ??C (97 ??F) 01/05/2024 9:25 AM MANAGER GARAGE Respiratory Rate - - Oxygen Saturation 98% 01/05/2024 9:25 AM MANAGER GARAGE Inhaled Oxygen Concentration - - Weight 62.1 kg (137 lb) 01/05/2024 9:25 AM MANAGER GARAGE Height 172.7 cm (5' 8 ) 01/05/2024 9:25 AM MANAGER GARAGE Body Mass Index 20.83 01/05/2024 9:25 AM MANAGER GARAGE documented in this encounter Patient Instructions * Patient Instructions* Susan Zhou MD - 01/05/2024 9:30 AM MANAGER GARAGE - Continue current regimen and monthly blood work - Follow up with dermatology regarding your rash - I will follow up chest x-ray and let you know if a repeat CT scan is needed Follow up in 6 months GER GARAGE documented in this encounter Progress Notes * Susan Zhou MD - 01/05/2024 9:30 AM CST Images from the original note were not included. LIVER TRANSPLANT CLINIC VISIT Mailing Address: [address] [place] [address] [id number] [place] [address] Date: 01/05/2024 PCP: Beka Nick MD Reason for consult: Post-Liver Transplant Follow-up History of Present Illness Beka Nichols is a 28 y.o. 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 Required MICUadmission and BiPAP. Today, he presents for follow up with his mother and two nieces. He is feeling better. 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 Reports ongoing typically dry cough. Intermittent rash on abdominal wall, saw dermatology but rash resolved at the time of visit but has now recurred. They felt rash was likely pityriasis rosea vs atopic dermatitis. He also reports intermittent headaches. No abdominal pain, fever, chills, swelling, or other concerns. Review of Systems: Pertinent positive and negative [...] status: Never Smokeless tobacco: Current Types: Chew Substance and Sexual Activity Drug use: Yes Types: Alcohol Sexual activity: Defer Alcohol Use: Alcohol Misuse (09/01/2023) AUDIT-C Frequency of Alcohol Consumption: Monthly or less Average Number of Drinks: 5 or 6 Frequency of Binge Drinking: Monthly No Known Allergies Medications Current Outpatient Medications on File Prior to Visit Medication Sig Dispense Refill furosemide (LASIX) 20 mg tablet Take 2 tablets (40 mg total) by mouth daily 60 tablet 1 [facility] heparin lock flush, porcine, Infuse 5 mL (50 Units total) into a venous catheter as needed (LINE CARE) letermovir (PREVYMIS) 480 mg tablet Take 1 tablet (480 mg total) by mouth daily 30 tablet 5 spironolactone (ALDACTONE) 50 mg tablet Take 2 tablets (100 mg total) by mouth daily 60 tablet 1 tacrolimus 0.5 mg immediate-release capsule Take 1 capsule (0.5 mg total) by mouth every other day 45 capsule 3 triamcinolone (KENALOG) 0.1 % cream Apply topically 2 (two) times a day as needed for rash 80 g 2 ursodioL (ACTIGALL) 300 mg capsule Take 2 capsules (600 mg total) by mouth daily with dinner 180 capsule 3 valGANciclovir (VALCYTE) 450 mg tablet Take 2 tablets (900 mg total) by mouth 2 (two) times a day 120 tablet 5 magnesium oxide (MAG-OX) 400 mg (241.3 mg elemental magnesium) tablet Take 1 tablet (400 mg total) by mouth 2 (two) times a day for 7 days Take while on foscarnet 14 tablet 0 No current facility-administered medications on file prior to visit. Objective BP 112/76 Pulse 78 Temp 36.1 ??C (97 ??F) Ht 172.7 cm (5' 8 ) Wt 62.1 kg (137 lb) SpO2 98% BMI 20.83 kg/m?? Wt Readings from Last 3 Encounters: 01/05/24 62.1 kg (137 lb) 11/29/23 59.9 kg (132 lb) 11/03/23 61.1 kg (134 lb 9.6 oz) Gen: awake, alert, in no acute distress HEENT: moist mucous membranes, no scleral icterus PULM: clear to auscultation bilaterally, normal respiratory effort, decreased bibasilar air exchange CVS: regular rate and rhythm, no murmur appreciated Abd: soft, nontender without rebound or guarding, nondistended, normoactive bowel sounds, surgical scar well healed without hernia present Ext: + clubbing, no edema MSK: well nourished Skin: No jaundice, scattered areas of hyperpigmentation and papular rash on abdominal wall Neuro: Alert and oriented x3, no tremor Labs: Lab Results Component Value Date WBC 7.3 11/03/2023 HGB 12.0 (L) 11/03/2023 LABPLAT 294 11/03/2023 MCV 115.9 (H) 11/03/2023 RDW 13.0 02/28/2022 LYMPHSABS 1.2 11/03/2023 MONOABS 1.3 (H) 11/03/2023 EOSABS 0.1 11/03/2023 SODIUM 137 11/03/2023 POTASSIUM 4.2 11/03/2023 CHLORIDE 105 11/03/2023 CO2 26 11/03/2023 BUNSER 13 11/03/2023 CREATININE 0.90 01/01/2024 GLUCOSE 90 11/03/2023 CALCIUM 8.2 (L) 11/03/2023 ANIONGAP 6 11/03/2023 AST 49 11/03/2023 ALT 36 11/03/2023 ALKPHOS 265 (H) 11/03/2023 LABGGT 50 11/03/2023 BILITOT 2.4 (H) 11/03/2023 BILIDIR 4.7 (H) 10/03/2023 ALBUMIN 2.8 (L) 11/03/2023 PROT 5.2 (L) 11/03/2023 Lab Results Component Value Date APTT 33 08/30/2023 PT 16.8 (H) 10/03/2023 INR 1.47 (H) 10/03/2023 Lab Results Component Value Date TRIG 139 [...] of 4) - No evidence to support [id number] deficiency by PAS-D - No definitive CMV [...] infiltrates, among other findings. The previous biopsy ([id number]), which was reviewed in comparison with the [...] needed. Radiology & other Diagnostics: reviewed CXR (01/05/24): IMPRESSION: The current study is compared with the prior radiograph dated 11/29/2023. There has been interval improvement in peripheral airspace opacity in the right lower lung. There is only extremely minimal residual compatible with sequela of a prior pneumonia. Blunting of both costophrenic angles is seen which could be due to scarring versus tiny effusions. There is no pneumothorax.. The heart and mediastinal contours are stable.. Numerous surgical clips are seen in the right upper quadrant of the abdomen. CT chest (12/03/23): IMPRESSION: 1. Chest radiograph [...] as described. Assessment/Plan Beka Nichols is a 28 y.o. male w/ hx of AIH s/p OLT (03/1999) c/b PTLD ( c-Myc, EBV+) s/p R-CHOP, EPOCH-R, last in 2018, CVID, ITP s/p splenectomy who presents for follow up. 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 Overall he is clinically improving with normalization of bilirubin and improvement in ALP <200 and resolution of CMV viremia. He still has a lingering cough following recent recovery from severe bacterial pneumonia. #Liver transplant recipient - Indication: AI - Immunosuppression regimen: tacrolimus 0.5 mg every [...] undetectable - Continue current regimen per ID #Pneumonia, persistent cough - CXR today reviewed, improved, only trace bilateral effusion - Will defer need for follow up CT chest to ID team #PTLD - continue to follow with Dr. Head #Healthcare maintenance: - Blood pressure: under good control - Lipids/DM: recommend annual monitoring - Renal function: normal - Bone health: due for repeat DEXA scan - Dental: recommend regular cleanings - Dermatology: reviewed importance of sun protection and annual skin checks. Follow up with dermatology is rash persists/worsens. - Colorectal cancer screening: Mother diagnosed with [...] discussed and questions answered. 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 documented in this encounter Care Teams Bulk Delivery Driver Relationship Specialty Start Date End Date Beka Nick MD [address] [place] [address] PCP - General Family Practice 05/31/23 04/25/24 Amber Montesinos, SHAILESH Certified Scrum Master Transplant 11/17/19 Jil Duncan MD Consulting Physician Infectious Diseases 01/10/20 Anita Gillespie MD Medical Oncologist/Manager Respiratory Care Medical Oncology 10/07/20 Tabitha Hurley MD [address] [place] [address] Consulting Physician Rheumatology 10/22/21 Massiel Gastelum MD [address] [place] [address] Consulting Physician Otolaryngology 08/27/22 documented as of this encounter
--- OUTSIDE RECORDS SUMMARY | 2024-10-28 06:05 | XMS_ITS | Encounter Summary ---
Author Organization [facility] Address [address] [place] [address] Phone Care Team Providers Care Cement Worker Name Role Phone Amber Montesinos RN Unavailable [phone] Jil Duncan MD Unavailable [phone] Anita Gillespie MD Unavailable [phone] Tabitha Hurley MD Unavailable [phone] Massiel Gastelum MD Unavailable [phone] Beka Nick MD Primary Care Provider [phone] Encounter Details Date Type Department Care Team (Late st Contact Info) Description 02/18/2024 [facility] - [facility] ENT [address] [facility] [address] 11th [place] [address] Danae Frazier CMA Social History Tobacco Use Types Packs/Day Years Used Date Smoking Tobacco: Never Smokeless Tobacco: Current Chew Alcohol Use Standard Drinks/Week Comments Yes 0 (1 standard drink = 0.6 oz pur e alcohol) occassional OASIS D0700: Social Isolation Answer Da te Recorded Frequency of experiencing loneliness or isolatio n Never 09/04/2023 [facility] Utilities Answer Date Recorded In the past 12 months has [employer], gas, oil, or water company threatened to [...] often do you attend chur ch or pentecostal services? 1 to 4 times per year [...] slept in a fci (including now)? No 10/04/2023 Personal Safety Answer Date Recorded Have you ever been in or are you currently in a harmful physical or emotional relationship or is someone making you feel afraid or unsafe? Denies 02/18/2024 Sex and Gender Information Value Date Recorded Sex Assigned at Not on file Legal Sex Male 6:28 AM BUSINESS RULES DEVELOPER Gender Identity Not on file Sexual Orientation Straight 08/22/2021 9: 23 AM CDT documented as of this encounter Miscellaneous Notes * Telephone Encounter - Danae Frazier CMA - 02/18/2024 3:44 PM CDT This was handled by the drMarco documented in this encounter Plan of Treatment Scheduled Procedures Name Priority Associated Diagnoses Date/Ti me COLONOSCOPY Encounter for screening for colorectal cancer in high risk patient Family history of rectal cancer documented as of this encounter Visit Diagnoses Not on filedocumented in this encounter Additional Health Concerns Infection Onset Date Last Indicated Resolved Time COVID: Suspected 02/18/2024 02/18/2024 02/18/2024 7:27 AM CDT Rhino/Enterovirus 02/18/2024 02/19/2024 03/04/2024 3:05 AM CDT documented as of this encounter Care Teams Cement Worker Relationship Specialty Start Date End Date Beka Nick MD [address] [place] [address] PCP - General Family Practice 05/31/23 04/25/24 Amber Montesinos, SHAILESH Food And Beverage Manager Transplant 11/17/19 Jil Duncan MD Consulting Physician Infectious Diseases 01/10/20 Anita Gillespie MD Medical Oncologist/Candy Roller Medical Oncology 10/07/20 Tabitha Hurley MD [address] [facility] [address] [place], [place] [id number] Consulting Physician Rheumatology 10/22/21 Massiel Gastelum MD [address] [place], [place] [id number] Consulting Physician Otolaryngology 08/27/22 documented as of this encounter
--- OUTSIDE RECORDS SUMMARY | 2024-10-28 06:05 | XMS_ITS | Encounter Summary ---
Author Organization [facility] Address [address] [place] [address] Phone Care Team Providers Care Furnace Roaster Name Role Phone Amber Montesinos RN Unavailable [phone] Jil Duncan MD Unavailable [phone] Anita Gillespie MD Unavailable [phone] Tabitha Hurley MD Unavailable [phone] Massiel Gastelum MD Unavailable Beka Nick MD Primary Care Provider [phone] Encounter Details Date Type Department Care Team (Late st Contact Info) Description 01/11/2024 Telephone [facility] Infectious Diseases [address] [place] [address] [address] [place] [address] Lisandra Auguste, AIDEN [address] [place] [address] [address] [place] [address] Social History Tobacco Use Types Packs/Day Years Used Date Smoking Tobacco: Never Smokeless Tobacco: Current Chew Alcohol Use Standard Drinks/Week Comments Yes 0 (1 standard drink = 0.6 oz pur e alcohol) occassional OASIS D0700: Social Isolation Answer Da te Recorded Frequency of experiencing loneliness or isolatio n Never 09/04/2023 [facility] Utilities Answer Date Recorded In the [...] slept in a residential (including now)? No 10/04/2023 Personal Safety Answer Date Recorded Have you ever been in or are you currently in a harmful physical or emotional relationship or is someone making you feel afraid or unsafe? Denies 10/03/2023 Sex and Gender Information Value Date Recorded Sex Assigned at Not on file Legal Sex Male 6:28 AM TOUR CONSULTANT Gender Identity Not on file Sexual Orientation Straight 08/22/2021 9: 23 AM CDT documented as of this encounter Miscellaneous Notes * Telephone Encounter - Lisandra Auguste NP - 01/11/2024 1:09 PM CDT Spoke with patient regarding repeat chest x-ray and lab results. He reports URI symptoms x 1 week with head congestion, sneezing, unproductive cough, and runny nose. No fever but does report night sweats last night. I offered to have him get respiratory viral panel but he does not want to get at this time. He has been going to work but I would like him to stay home and rest. Will send work excusenote for the rest of the week. I will call him on to see how he is feeling and if no better will plan on additional testing (RVP, labs, chest x- ray). I asked him to call me if anything gets worse. documented in this encounter Plan of Treatment Scheduled Procedures Name Priority Associated Diagnoses Date/Ti me COLONOSCOPY Encounter for screening for colorectal cancer in high risk patient Family history of rectal cancer documented as of this encounter Visit Diagnoses Not on filedocumented in this encounter Care Teams Furnace Roaster Relationship Specialty Start Date End Date Beka Nick MD [address] [place] [address] PCP - General Family Practice 05/31/23 04/25/24 Amber Montesinos, RN Wide Area Network Engineer Transplant 11/17/19 Jil Duncan MD Consulting Physician Infectious Diseases 01/10/20 Anita Gillespie MD Medical Oncologist/General Lot Attendant Medical Oncology 10/07/20 Tabitha uHrley MD [address] [place] [address] Consulting Physician Rheumatology 10/22/21 Massiel Gastelum MD [address] [place] [address] Consulting Physician Otolaryngology 08/27/22 documented as of this encounter
--- OUTSIDE RECORDS SUMMARY | 2024-10-28 06:05 | XMS_ITS | Encounter Summary ---
Author Organization [facility] Address [address] [place] [address] Care Team Providers Care Manager Cost Name Role Phone Amber Montesinos RN Unavailable [phone] Jil Duncan MD Unavailable [phone] Anita Gillespie MD Unavailable [phone] Tabitha Hurley MD Unavailable [phone] Massiel Gastelum MD Unavailable [phone] Beka Nick MD Primary Care Provider [phone] Encounter Details Date Type Department Care Team (Late st Contact Info) Description 01/03/2024 Orders Only [facility] Health Information Management [address] [place] [address] Scanning, Provider Social History Tobacco Use Types Packs/Day Years Used Date Smoking Tobacco: Never Smokeless Tobacco: Current Chew Alcohol Use Standard Drinks/Week Comments Yes 0 (1 standard drink = 0.6 oz pur e alcohol) occassional OASIS D0700: Social Isolation Answer Da te Recorded Frequency of experiencing loneliness or isolatio n Never 09/04/2023 [facility] Utilities Answer Date Recorded In the [...] 10/04/2023 How often do you attend chur or taoism services? 1 to 4 times per year 10/04/2023 Do you belong to any clubs o r organizations such as restorationism groups, unions, fraternal or athletic groups, or [...] in a skilled nursing (including now)? No 10/04/2023 Personal Safety Answer Date Recorded Have you ever been in or are you currently in a harmful physical or emotional relationship or is someone making you feel afraid or unsafe? Denies 10/03/2023 Sex and Gender Information Value Date Recorded Sex Assigned at Not on file Legal Sex Male 6:28 AM MEDICAL FILE CLERK Gender Identity Not on file Sexual Orientation Straight 08/22/2021 9: 23 AM CDT documented as of this encounter Plan of Treatment Scheduled Procedures Name Priority Associated Diagnoses Date/Ti me COLONOSCOPY Encounter for screening for colorectal cancer in high risk patient Family history of rectal cancer documented as of this encounter Procedures Procedure Name Priority Date/Time Associated Diagnosis Comments SCAN - LABS 01/03/2024 10:09 PM MEDICAL FILE CLERK documented in this encounter Results * SCAN - LABS (01/03/2024 10:09 PM MEDICAL FILE CLERK) us Provider Scanning Final Result documented in this encounter Visit Diagnoses Not on filedocumented in this encounter Care Teams Manager Cost Relationship Specialty Start Date End Date Beka Nick MD [address] [place] [address] PCP - General Family Practice 05/31/23 04/25/24 Amber Montesinos, SHAILESH Timber Grader Transplant 11/17/19 Jil Duncan MD Consulting Physician Infectious Diseases 01/10/20 Anita Gillespie MD Medical Oncologist/Under Cutter Medical Oncology 10/07/20 Tabitha Hurley MD [address] [place] [address] Consulting Physician Rheumatology 10/22/21 Massiel Gastelum MD [address] [place] [address] Consulting Physician Otolaryngology 08/27/22 documented as of this encounter
--- OUTSIDE RECORDS SUMMARY | 2024-10-28 06:05 | XMS_ITS | Encounter Summary ---
Author Organization [facility] Healthcare Address [address] [place] [address] Care Team Providers Care Wind Energy Project Manager Name Role Phone Amber Montesinos RN Unavailable [phone] Jil Duncan MD Unavailable [phone] Anita Gillespie MD Unavailable [phone] Tabitha Hurley MD Unavailable [phone] Massiel Gastelum MD Unavailable Beka Nick MD Primary Care Provider [phone] Reason for Referral * MRI/CAT/PET Scan (Routine) - Closed Specialty Diagnoses / Procedures Referred By Contac t Referred To Contact Radiology Diagnoses Subacute cough Procedures CT Chest W Contrast CTA Chest W Contrast Lisandra Auguste NP [address] [facility] [address] [place] [address] Phone: tel: fax: [address] [address] Referral ID Status Reason Start Date Expiration Date Visits Re quested Visits Authorized [id number] Closed 11/29/2023 05/27/2024 1 1 OR RUBY DEVELOPER Reason for Visit * MRI/CAT/PET Scan (Routine) - Closed Specialty Diagnoses / Procedures Referred By Contac t Referred To Contact Radiology Diagnoses Subacute cough Procedures CT Chest W Contrast CTA Chest W Contrast Lisandra Auguste, AIDEN [address] [facility] [address] [place] [address] Phone: tel: fax: [facility] [address] [facility] [place] [address] Referral ID Status Reason Start Date Expiration Date Visits Re quested Visits Authorized [id number] Closed 11/29/2023 05/27/2024 1 1 Encounter Details Date Type Department Care Team (Latest Contact Info) Description 12/03/2023 9:57 AM SENIOR RUBY DEVELOPER - 12/03/2023 11:59 PM SENIOR RUBY DEVELOPER Hospital Encounter Radiology [facility] [address] [place] [id number] Subacute cough Discharge Disposition: Discharge to home or self care Social History Tobacco Use Types Packs/Day Years Used Date Smoking Tobacco: Never Smokeless Tobacco: Current Chew Alcohol Use Standard Drinks/Week Comments Yes 0 (1 standard drink = 0.6 oz pur e alcohol) occassional OASIS D0700: Social Isolation Answer Da te Recorded Frequency of experiencing loneliness or isolatio n Never 09/04/2023 [facility] Utilities Answer Date Recorded In the past 12 months has e electric, gas, oil, or water [employer] threatened to shut off services in your [...] any clubs o r organizations such as restorationist groups, unions, fraternal or athletic groups, or [...] in a care home (including now)? No 10/04/2023 Personal Safety Answer Date Recorded Have you ever been in or are you currently in a harmful physical or emotional relationship or is someone making you feel afraid or unsafe? Denies 10/03/2023 Sex and Gender Information Value Date Recorded Sex Assigned at Not on file Legal Sex Male 6:28 AM SENIOR RUBY DEVELOPER Gender Identity Not on file Sexual Orientation Straight 08/22/2021 9: 23 AM CDT documented as of this encounter Medications at Time of Discharge amoxicillin-clav ulanate (AUGMENTIN) 875-125 mg per tablet Take 1 tablet by mouth every 12 (twelve) hours for 7 days 14 tablet 12/03/2023 4 doxycycline (VIBRAMYCIN) 100 mg capsule Take 1 tablet/capsule (100 mg total) by mouth every 12 (twelve) hours for 7 days 14 tablet/capsule 12/03/2023 4 letermovir (PREVYMIS) 480 mg tabletIndication s:Prophylaxis, Medical Take 1 tablet (480 mg total) by mouth daily 30 tablet 5 09/28/2023 4 furosemide (LASIX) 20 mg tablet Take 2 tablets (40 mg total) by mouth daily 60 tablet 1 12/02/2023 4 [facility] heparin lock flush, porcine,Indicati ons:LINE CARE Infuse 5 mL (50 Units total) into a venous catheter as needed (LINE CARE) 4 magnesium oxide (MAG-OX) 400 mg (241.3 mg elemental magnesium) tabletIndication s:hypomagnesemia Take 1 tablet (400 mg total) by mouth 2 (two) times a day for 7 days Take while on foscarnet 14 tablet 09/03/2023 4 spironolactone (ALDACTONE) 50 mg tablet Take 2 tablets (100 mg total) by mouth daily 60 tablet 1 12/02/2023 4 tacrolimus 0.5 mg immediate-releas e capsuleIndicatio ns:Prevention of Liver Transplant Rejection Take 1 capsule (0.5 mg total) by mouth every other day 11/09/2023 4 triamcinolone (KENALOG) 0.1 % cream Apply [...] Priority Date/Time Associated Diagnosis Comments CT CHEST W CONTRAST Schedule Routine, Read Routine (OP Routine) 12/03/2023 11:00 AM SENIOR RUBY DEVELOPER Subacute cough documented in this encounter Results * CT Chest W Contrast (12/03/2023 11:00 AM SENIOR RUBY DEVELOPER) Anatomical Region Laterality Modality Body N/A Computed Tomogra phy 12/03/2023 11:2 5 AM SENIOR RUBY DEVELOPER Impressions 12/03/2023 11:25 AM SENIOR RUBY DEVELOPER 1. ??Chest radiograph abnormality as a CT appearance of a right lower lobe bacterial lobar pneumonia. ??Recommend follow-up of this in 4-6 weeks after antibiotic treatment to ensure resolution. 2. 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 ??Marked decrease in size of previously noted right pleural effusion on prior CT with overall small bilateral pleural effusions and good aeration of the lung aside from the right lower lobe pneumonia. Electronically signed by: Jez Gill M.D. Narrative 12/03/2023 11:25 AM SENIOR RUBY DEVELOPER EXAMINATION: ??Computed tomography of the chest with intravenous contrast HISTORY: Cough; new chest radiograph right lung abnormality; post transplant lymphoproliferative disorder TECHNIQUE: ??Transaxial computed tomographic images of the chest were obtained with intravenous contrast according to standard protocol after the uneventful administration of intravenous contrast. FINDINGS: ?? Comparison CT 10/03/2023 in correlation with recent chest radiograph 11/29/2023 The appearance of the lung is much different from the comparison CT as there is marked decrease in size of the right pleural effusion, now small in size without substantial loculation. ??The right lung is overall much better aerated. ??The wedge-shaped abnormality on recent chest radiograph has an appearance suspicious for a bacterial lobar pneumonia in the right lower lobe. ??It is peripheral and wedge-shaped and a lung infarction could have a similar appearance but there is no evidence of a large volume proximal pulmonary embolism. There is an infarct, it is likely secondary infected and overall the spectrum of a lobar pneumonia. ??There are stable cardiomegaly of biventricular enlargement. Multistation lymphadenopathy. ??A 17 mm short axis left axillary lymph node is unchanged. ??There is enlarged lymph nodes at the lateral axillary, subclavian, right hilar and right paratracheal stations. Right hilar lymph node stable and measures up to 2.3 cm short axis soft tissue image 69. ??Transplant changes from a hypertrophied left hemiliver noted in the upper abdomen. ??Gastrohepatic lymphadenopathy partially imaged and appears grossly similar with the largest lymph node measuring up to 13 mm short axis. ??There is partially imaged mild right hydronephrosis, unclear etiology. Procedure Note Jez Gill MD - 12/03/2023 EXAMINATION: Computed tomography of the chest with intravenous contrast HISTORY: Cough; new chest radiograph right lung abnormality; post transplant lymphoproliferative disorder TECHNIQUE: Transaxial computed tomographic images of the chest were obtained with intravenous contrast according to standard protocol after the uneventful administration of intravenous contrast. FINDINGS: Comparison CT 10/03/2023 in correlation with recent chest radiograph 11/29/2023 The appearance of the lung is much different from the comparison CT as there is marked decrease in size of the right pleural effusion, now small in size without substantial loculation. The right lung is overall much better aerated. The wedge-shaped abnormality on recent chest radiograph has an appearance suspicious for a bacterial lobar pneumonia in the right lower lobe. It is peripheral and wedge-shaped and a lung infarction could have a similar appearance but there is no evidence of a large volume proximal pulmonary embolism. There is an infarct, it is likely secondary infected and overall the spectrum of a lobar pneumonia. There are stable cardiomegaly of biventricular enlargement. Multistation lymphadenopathy. A 17 mm short axis left axillary lymph node is unchanged. There is enlarged lymph nodes at the lateral axillary, subclavian, right hilar and right paratracheal stations. Right hilar lymph node stable and measures up to 2.3 cm short axis soft tissue image 69. Transplant changes from a hypertrophied left hemiliver noted in the upper abdomen. Gastrohepatic lymphadenopathy partially imaged and appears grossly similar with the largest lymph node measuring up to 13 mm short axis. There is partially imaged mild right hydronephrosis, unclear etiology. IMPRESSION: 1. Chest radiograph abnormality as a [...] aside from the right lower lobe pneumonia. Electronically signed by: Jez Gill M.D. Lisandra Auguste BATTER SCALER IMG CT PROCEDURES Final R esult documented in this encounter Visit Diagnoses Diagnosis Subacute cough documented in this encounter Administered Medications Inactive Administered Medications - up to 3 most recent administrations Medication Order MAR Action Action Date Dose Rate Site ioversoL (OPTIRAY 350) syringe 75 mL 75 mL, intravenous, Once in imaging, contrast, Starting on Wed12/03/23 at 1053, For 1 dose Contrast Given 12/03/2023 10:54 AM SENIOR RUBY DEVELOPER 70 mL documented in this encounter Care Teams Wind Energy Project Manager Relationship Specialty Start Date End Date Beka Nick MD [address] [place] [address] PCP - General Family Practice 05/31/23 04/25/24 Amber Montesinos, SHAILESH Dedicated Regional Driver Transplant 11/17/19 Jil Duncan MD Consulting Physician Infectious Diseases 01/10/20 Anita Gillespie MD Medical Oncologist/Open Hearth Helper Medical Oncology 10/07/20 Tabitha Hurley MD [address] [place] [address] Consulting Physician Rheumatology 10/22/21 Massiel Gastelum MD [address] [place] [address] Consulting Physician Otolaryngology 08/27/22 documented as of this encounter
--- OUTSIDE RECORDS SUMMARY | 2024-10-28 06:05 | XMS_ITS | Encounter Summary ---
Author Organization [facility] Address [address] [place] [address] Phone Care Team Providers Care Sprigger Name Role Phone Amber Montesinos RN Unavailable [phone] Jil Duncan MD Unavailable [phone] Anita Gillespie MD Unavailable [phone] Tabitha Hurley MD Unavailable [phone] Massiel Gastelum MD Unavailable [phone] Beka Nick MD Primary Care Provider [phone] Unknown, Notinfile Primary Care Provider Unavail able Guero Colunga DO Primary Care Provider [phone] Encounter Details Date Type Department Care Team (Late st Contact Info) Description 11/04/2023 Telephone [facility] ENT [address] [facility] [address] [place] [address] Massiel Gastelum MD [address] [facility] [address] [place] [address] Social History Tobacco Use Types Packs/Day Years Used Date Smoking Tobacco: Never Smokeless Tobacco: Current Chew Alcohol Use Standard Drinks/Week Comments Yes 0 (1 standard drink = 0.6 oz pur e alcohol) occassional OASIS D0700: Social Isolation Answer Da te Recorded Frequency of experiencing loneliness or isolatio n Never 09/04/2023 [facility] Utilities [...] often do you attend chur ch or bahai services? 1 to 4 times per year [...] [place] [facility] ([facility] No 10/04/2023 Personal Safety Answer Date Recorded Have you ever been in or are you currently in a harmful physical or emotional relationship or is someone making you feel afraid or unsafe? 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 18 tablet 11/04/2023 4 levoFLOXacin (LEVAQUIN) 500 mg tabletIndications: Chronic pansinusitis Take 1 tablet (500 mg total) by mouth daily for 21 days 21 tablet 11/04/2023 4 documented in this encounter Plan of Treatment Scheduled Procedures Name Priority Associated Diagnoses Date/Ti me COLONOSCOPY Encounter for screening for colorectal cancer in high risk patient Family history of rectal cancer documented as of this encounter Visit Diagnoses Diagnosis Chronic pansinusitis- Primary Other chronic sinusitis documented in this encounter Additional Health Concerns Infection Onset Date Last Indicated Resolved Time COVID: Suspected 02/18/2024 02/18/2024 02/18/2024 7:27 AM CDT Rhino/Enterovirus 02/18/2024 02/19/2024 03/04/2024 3:05 AM CDT documented as of this encounter Care Teams Sprigger Relationship Specialty Start Date End Date Beka Nick MD [address] [place] [address] PCP - General Family Practice 05/31/23 04/25/24 Unknown, Notinfile PCP - General 04/26/24 08/01/24 Guero Colunga DO [address] [place], [place] [id number] PCP - General Internal Medicine 08/02/24 Amber Montesinos, RN Polymer Specialist Transplant 11/17/19 Jil Duncan MD Consulting Physician Infectious Diseases 01/10/20 Anita Gillespie MD Medical Oncologist/Glove Machine Operator Medical Oncology 10/07/20 Tabitha Hurley MD [address] [place] [address] Consulting Physician Rheumatology 10/22/21 Massiel Gastelum MD [address] [place] [address] Consulting Physician Otolaryngology 08/27/22 documented as of this encounter
--- OUTSIDE RECORDS SUMMARY | 2024-10-28 06:05 | XMS_ITS | Encounter Summary ---
Author Organization [facility] Healthcare Address [address] [place] [address] Care Team Providers Care Embedded Software Programmer Name Role Phone Amber Montesinos RN Unavailable [phone] Jil Duncan MD Unavailable [phone] Anita Gillespie MD Unavailable [phone] Tabitha Hurley MD Unavailable [phone] Massiel Gastelum MD Unavailable [phone] Beka Nick MD Primary Care Provider [phone] Encounter Details Date Type Department Care Team (Late st Contact Info) Description 12/02/[address] [facility] Transplant Liver [address] [facility] [phone] [place] [address] Amber Montesinos, RN Social History Tobacco Use Types Packs/Day Years Used Date Smoking Tobacco: Never Smokeless Tobacco: Current Chew Alcohol Use Standard Drinks/Week Comments Yes 0 (1 standard drink = 0.6 oz pur e alcohol) occassional OASIS D0700: Social Isolation Answer Da te Recorded Frequency of experiencing loneliness or isolatio n Never 09/04/2023 [facility] Utilities Answer Date Recorded In [...] slept in a fdc (including now)? No 10/04/2023 Personal Safety Answer Date Recorded Have you ever been in or are you currently in a harmful physical or emotional relationship or is someone making you feel afraid or unsafe? Denies 10/03/2023 Sex and Gender Information Value Date Recorded Sex Assigned at Not on file Legal Sex Male 6:28 AM COST COORDINATOR Gender Identity Not on file Sexual Orientation Straight 08/22/2021 9: 23 AM CDT documented as of this encounter Ordered Prescriptions Prescription Sig Dispense Quantity Refills Last Filled Start Date End Date spironolactone (ALDACTONE) 50 mg tablet Take 2 tablets (100 mg total) by mouth daily 60 tablet 1 12/02/2023 4 furosemide (LASIX) 20 mg tablet Take 2 tablets (40 mg total) by mouth daily 60 tablet 1 12/02/2023 4 documented in this encounter Plan of Treatment Scheduled Procedures Name Priority Associated Diagnoses Date/Ti me COLONOSCOPY Encounter for screening for colorectal cancer in high risk patient Family history of rectal cancer documented as of this encounter Visit Diagnoses Not on filedocumented in this encounter Discontinued Medications Medication Sig Discontinue Reason Start Date End Da te furosemide (LASIX) 20 mg tablet Take 2 tablets (40 mg total) by mouth daily Reorder 11/12/2023 12/02/2023 spironolactone (ALDACTONE) 50 mg tablet Take 2 tablets (100 mg total) by mouth daily Reorder 11/12/2023 12/02/2023 documented as of this encounter Care Teams Embedded Software Programmer Relationship Specialty Start Date End Date Beka Nick MD [address] [place] [address] PCP - General Family Practice 05/31/23 04/25/24 Amber Montesinos, SHAILESH Bag Machine Operator Helper Transplant 11/17/19 Jil Duncan MD Consulting Physician Infectious Diseases 01/10/20 Anita Gillespie MD Medical Oncologist/Baby Nurse Medical Oncology 10/07/20 Tabitha Hurley MD [address] [place] [address] Consulting Physician Rheumatology 10/22/21 Massiel Gastelum MD [address] [place] [address] Consulting Physician Otolaryngology 08/27/22 documented as of this encounter
--- OUTSIDE RECORDS SUMMARY | 2024-10-28 06:05 | XMS_ITS | Encounter Summary ---
Author Organization [facility] Address [address] [place] [address] Phone Care Team Providers Care Notereader Name Role Phone Amber Montesinos RN Unavailable [phone] Jil Duncan MD Unavailable [phone] Anita Gillespie MD Unavailable [phone] Tabitha Hurley MD Unavailable [phone] Massiel Gastelum MD Unavailable [phone] Beka Nick MD Primary Care Provider [phone] Encounter Details Date Type Department Care Team (Late st Contact Info) Description 02/17/2024 Orders Only [facility] ENT [address] [facility] [address] [place] [address] [place] [address] Leslie Campo, SHAILESH Social History Tobacco Use Types Packs/Day Years Used Date Smoking Tobacco: Never Smokeless Tobacco: Current Chew Alcohol Use Standard Drinks/Week Comments Yes 0 (1 standard drink = 0.6 oz pur e alcohol) occassional OASIS D0700: Social Isolation Answer Da te Recorded Frequency of experiencing loneliness or isolatio n Never 09/04/2023 [facility] Utilities Answer Date Recorded In the past 12 months has [employer], oil, or water [employer] threatened to shut off services in your home? Patient unable to answer 02/22/2024 Social Connection and Isolation Panel [NHANES] A nswer Date Recorded In a typical week, how many times do you talk on the phone with family, friends, or neighbors? Patient unable to answer 02/22/2024 How often do you get togethe r with friends or relatives? Patient unable to answer 02/22/2024 How often do you attend chur ch or confucianist services? Patient unable to answer 02/22/2024 Do you belong to any clubs o r organizations such as evangelical groups, unions, fraternal or athletic groups, or school groups? Patient unable to answer 02/22/2024 How often do you attend meet ings of the clubs or organizations you belong to? Patient unable to answer 02/22/2024 Are you , , di vorced, , never , or living with a partner? Patient unable to answer 02/22/2024 AUDIT-C Answer Date Recorded Q1: How often [...] like food, housing, medical care, and heating? Patient unable to answer 02/22/2024 PHQ-2 Answer Date Recorded PHQ-2 Total Score (If total score is 3 or more points, staff should administer the PHQ-9) 0 10/04/2023 Hunger Vital Sign Answer Date Recorded Within the past 12 months, y ou worried that your food would run out before you got the money to buy more. Patient unable to answer 02/22/2024 Within the past 12 months, t he food you bought just didn't last and you didn't have money to get more. Patient unable to answer 02/22/2024 PRAPARE - Transportation Answer Date Re corded In the past 12 months, has l ack of transportation kept you from medical appointments or from getting medications? Patient unable to answer 02/22/2024 In the past 12 months, has l ack of transportation kept you from meetings, work, or from getting things needed for daily living? Patient unable to answer 02/22/2024 Housing Stability Vital Sign Answer Toribio e Recorded In the last 12 months, was t here a time when you were not able to pay the mortgage or rent on time? Patient unable to answer 02/22/2024 In the last 12 months, how m any places have you lived? 1 02/22/2024 In the last 12 months, was t here a time when you did not have a steady place to sleep or slept in a senior care (including now)? Patient unable to answer 02/22/2024 Personal Safety Answer Date Recorded Have you ever been in or are you currently in a harmful physical or emotional relationship or is someone making you feel afraid or unsafe? 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 Gender Identity Not on file Sexual [...] documented as of this encounter Care Teams Notereader Relationship Specialty Start Date End Date Beka Nick MD [address] [place] [address] PCP - General Family Practice 05/31/23 04/25/24 Amber Montesinos, SHAILESH Director Of Casework Department Transplant 11/17/19 Jil Duncan MD Consulting Physician Infectious Diseases 01/10/20 Anita Gillespie MD Medical Oncologist/Bombsight Specialist Medical Oncology 10/07/20 Tabitha Hurley MD [address] [place] [address] Consulting Physician Rheumatology 10/22/21 Massiel Gastelum MD [address] [place] [address] Consulting Physician Otolaryngology 08/27/22 documented as of this encounter
--- OUTSIDE RECORDS SUMMARY | 2024-10-28 06:05 | XMS_ITS | Encounter Summary ---
Author Organization [facility] Address [address] [place] [address] Phone Care Team Providers Care Environmental Protection Officer Name Role Phone Amber Montesinos RN Unavailable [phone] Jil Duncan MD Unavailable [phone] Anita Gillespie MD Unavailable [phone] Tabitha Hurley MD Unavailable [phone] Massiel Gastelum MD Unavailable Adi Nick MD Primary Care Provider [phone] Encounter Details Date Type Department Care Team (Late st Contact Info) Description 11/03/2023 7:45 AM IP LITIGATION ASSOCIATE Office Visit [facility] Oncology [address] [facility] 7th [place] [address] [place] [address] Anita Gillespie MD [address] [facility] [address] [place] [address] 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 No 10/04/2023 Personal Safety Answer Date Recorded Have you ever been in or are you currently in a harmful physical or emotional relationship or is someone making you feel afraid or unsafe? Denies 10/03/2023 Sex and Gender Information Value Date Recorded Sex Assigned at Not on file Legal Sex Male 6:28 AM IP LITIGATION ASSOCIATE Gender Identity Not on file Sexual Orientation Straight 08/22/2021 9: 23 AM CDT documented as of this encounter Last Filed Vital Signs Vital Sign Reading Time Taken Comments Blood Pressure 119/77 11/03/2023 7:44 AM IP LITIGATION ASSOCIATE Pulse 96 11/03/2023 7:44 AM IP LITIGATION ASSOCIATE Temperature 36.3 ??C (97.4 ??F) 11/03/2023 7:42 AM CS T Respiratory Rate 18 11/03/2023 7:42 AM IP LITIGATION ASSOCIATE Oxygen Saturation 96% 11/03/2023 7:44 AM IP LITIGATION ASSOCIATE Inhaled Oxygen Concentration - - Weight 61.1 kg (134 lb 9.6 oz) 11/03/2023 7:42 A M IP LITIGATION ASSOCIATE Height - - Body Mass Index 20.47 10/09/2023 8:55 PM IP LITIGATION ASSOCIATE documented in this encounter Progress Notes * Anita Gillespie MD - 11/03/2023 12:00 AM CST PATIENT NAME: ADI NICHOLS : 1995 JUSTEN: 11/03/2023 DIAGNOSES: 1. 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 2. 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 3. Bilateral pulmonary emboli diagnosed on 10/19/2017. TREATMENT AND DISEASE COURSE: 1. R-CHOP x 1, 08/25/2017. 2. Dose adjusted EPOCH-R x 5, 09/15/2017 to December 2017. Post-C2 PET: [place] (5PS = 4), CR post C5 3. [...] mild fibrosis. INTERVAL HISTORY: Adi returns to [facility] for continued follow-up of his history of PTLD. I have not seen him since 12/30/2022 as an outpatient, but have seen him more recently as an inpatient. Since his last visit with us, he has had a complicated course. He continues to have close follow-up with ENT for chronic sinusitis. In April 2023, he had Augmentin for 3 weeks after a nasal scope with cultures revealed Haemophilus influenzae. In May 2023 he again saw ENT and had a left myringotomy tube placed, and they were unable to place one on the right. He was given a Levaquin prescription at that time. His last follow-up with ENT was August, and at that time he was doing relatively well. Over thelast few weeks he has been struggling again with marked nasal drainage resulting in a cough. I believe he has a call in to ENT. He has not noted any fevers. He had a prolonged hospitalization in August and September for ascites and lower extremity edema, and had an extensive evaluation. He had a CTscan of the neck, chest, abdomen, and pelvis on August 23 which showed extensive lymphadenopathy above and below the diaphragm, with the majority of nodes being stable compared to 07/09/2022. A right axillary and left inguinal lymph node were slightly larger. There were also new peribronchovascular opacities within the right lung, and new wall thickening of the ascending colon and terminal ileumcompatible with enterocolitis. He had an echocardiogram on 08/24/2023 which showed a normal LVEF of62%. He had upper endoscopy with EUS on 08/27/2023, with biopsy of a retroperitoneal lymph node which showed no evidence of PTLD and was negative for EBV, but positive for CMV by immunostain. 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 There was also sinusoidal and lobular mixed inflammation with scattered rare foci of hepatocyte dropout. There were no definitive CMV viral inclusions, and no evidence of PTLD. There was mild periportal fibrosis.He also had a normal colonoscopy during that hospitalization, bilateral lower extremity Dopplers whi ch were negative, an abdominal MRI which showed moderate ascites and diffuse body wall edema, as well as enterocolitis, a question of bilateral pyelonephritis, but no biliary ductal dilatation or focal hepatic changes. He was seen by Infectious Disease and Hepatology, as well as Oncology during that hospitalization. He was discharged on valganciclovir for his persistent CMV. He was readmitted on 10/03/2023 through 10/13/2023 for pneumonia, a pleural effusion requiring a thoracentesis and chest tube placement in the emergency room, with admission to the ICU on BiPAP. His chest tube was pulled prior to discharge. Cultures and cytology were negative. He saw the liver transplant team on October 14 for worsening edema and ascites, and his Lasix was increased to 40 mg daily and spironolactone 200 mg daily, and he has been a bit more comfortable since increasing these. He continues to have coughing fits since discharge, but thinks this may be slowly improving. Over the last few months he has also completely stopped drinking alcohol, as well as chewing tobacco. PHYSICAL EXAMINATION: General: Relatively well-appearing young man, who was accompanied by his mom. He looks a lot betterthan he did during his 2 recent hospitalizations. Vital Signs: His weight is 61.1 kg, which is markedly down compared to 08/23/2023, when it was 71 kg when he was admitted for ascites and lower extremity edema. His baseline weight with us on 12/30/2022 was 62 kg. Blood pressure 119/77, pulse 96, temperature 36.3, O2 sat 96%. Lungs: Clear to auscultation. Nodes: He has a mobile 1 cm left axillary lymph node, but I can no longer feel the bilateral cervical lymph nodes that we have felt for quite some time. Abdomen: Very mild distention. I cannot appreciate hepatosplenomegaly. Extremities: Trace to 1+ pretibial edema bilaterally. Skin: He has multiple erythematous macules with central clearing, primarily over his anterior and inner upper thighs. The lesions range in size from a few millimeters to perhaps a centimeter. They have no substance to them. LABORATORIES: WBC 7.3, hemoglobin 12, platelets 294, ANC 4.4, ALC 1.2. Chemistries remarkable for a bili of 2.4, down from 6.1 on 10/03/2023. Alk phos 265, AST 49, ALT 36, LDH 387, GGT 50. IMPRESSION AND PLAN: 1. History of c-MYC positive posttransplant lymphoproliferative disorder, EBV- positive, stage EMY, IPI 3. This 28-year-old gentleman is now nearly 6 years status post 1 cycle of R-CHOP and 5 cycles of dose-adjusted EPOCH-R. He has never had any evidence of recurrence. He had 2 recent prolonged hospi talizations, and CT scans done in August showed diffuse lymphadenopathy which was basically unchanged compared to July 2022. His lymph nodes have been biopsied multiple times in the past and have been reactive, and have shown CMV on more than one occasion including his recent EUS biopsy of a retroperitoneal node in August. He is currently on Valcyte 900 b.i.d. as well as letermovir 480 mg daily. I do not have any concern that he has recurrent PTLD. 2. Recurrent sinus infections. The patient has been off and on antibiotics for his sinus infections, and he is again struggling with severe sinus congestion. He will follow-up with ENT in the next week or so. 3. Common variable immunodeficiency. The patient remains on HyQvia, and will continue this indefinitely. 4. Persistent cytomegalovirus infection. Recent lymph node biopsy again showed CMV. Interestingly, his liver biopsy did not show any evidence of CMV, which is encouraging. He is currently on 2 different antivirals, and follows closely with the infectious disease team. 5. History of liver transplant. The patient had a liver biopsy in August, which had some mild fibrosis and evidence of cholestasis. He has had recent marked ascites and lower extremity edema, and isnow requiring high-dose diuretics, which have improved his symptoms. 6. Healthcare maintenance. The patient is not interested in any vaccinations at this time. ELECTRONICALLY SIGNED - 11/07/2023 02:09 PM Anita Gillespie M.D. special education director [facility] Chair in Medical Oncology NB/ps cc: LENO AGUSTIN MD [facility]1 [facility] Floor [address], [place] [address] BARBARA NGUYENKDO [address] [place] [address] / JIL DUNCAN M.D. 1 [place] [address] LINDA CHAPA MD [address] [facility] [address] [place] [address] / LITIGATION ASSOCIATE documented in this encounter Nursing Notes * Yulisa Bhakta RN - 11/03/2023 7:45 AM CST Images from the original note were not included. R upper thigh R thigh L thigh R lower leg LITIGATION ASSOCIATE documented in this encounter Plan of Treatment Scheduled Procedures Name Priority Associated Diagnoses Date/Ti me COLONOSCOPY Encounter for screening for colorectal cancer in high risk patient Family history of rectal cancer documented as of this encounter Results * (ABNORMAL) CBC with auto differential (08/02/2024 7:16 AM CDT) [facility] WBC 5.4 3.8 - 9.9 K/cumm Comment:Testing performed by : [facility], [address] [place] [address] Hgb 12.9(L) 13.0 - 17.5 g/dL CERNER BJ Comment:Testing performed by : [facility], [address] [place], [place] [phone] Hct 38.0(L) 38.9 - 50.3 % CERNER BJ Comment:Testing performed by : [facility], [address] [place] [address] Plt 263 150 - 400 K/cumm CERNER BJ Comment:Testing performed by : [facility], [address] [place], [place] [phone] MPV 8.5 6.8 - 10.4 fL CERNER BJ Comment:Testing performed by : [facility], [address] [place], [place] [phone] RBC 3.40(L) 4.30 - 5.80 M/cumm CERNER BJ Comment:Testing performed by : [facility], [address] [place] [address] MCV 111.7(H) 81.3 - 96.4 fL CERNER BJ Comment:Testing performed by : [facility], [address] [place] [address] MCH 38.0(H) 27.1 - 33.3 pg CERNER BJ Comment:Testing performed by : [facility], [address] [place] [address] MCHC 34.0 32.3 - 35.7 g/dL CERNER BJ Comment:Testing performed by : [facility], [address] [place] [address] RDW CV 13.5 11.1 - 14.9 % CERNER BJ Comment:Testing performed by : [facility], [address] [place] [address] NRBC abs 0.00 0.00 - 0.01 K/cumm CERNER BJ Comment:Testing performed by : [facility], [address] [place] [id number] Blood 08/02/2024 7:16 AM CDT 08/02/2024 7:17 AM CDT Anita Gillespie MD LAB BLOOD ORDERABLES Edite d Result - Final Performing Organization Address [facility]/ZIP Co de Phone Number [facility] [place] [address] * (ABNORMAL) Lactate dehydrogenase (LD) (08/02/2024 7:10 AM CDT) Pathologist [facility] Lactate dehydrogenase (LDH) 260(H) 100 - 250 Units/L Blood 08/02/2024 7:10 AM CDT 08/02/2024 7:27 AM CDT Anita Gillespie MD LAB BLOOD ORDERABLES Final Result Performing Organization Address [facility] de Phone Number [facility] [place] [place] [address] * (ABNORMAL) Comprehensive metabolic panel (08/02/2024 7:10 AM CDT) Sodium 138 135 - 145 mmol/L Potassium, pl 4.7 3.3 - 4.9 mmol/L [facility] Chloride 108 97 - 110 mmol/L [facility] CO2 25 22 - 32 mmol/L [facility] Anion gap 5 2 - 15 mmol/L [facility] BUN 19 6 - 25 mg/dL [facility] Creatinine 1.07 0.80 - 1.30 mg/dL [facility] Glucose 115 70 - 199 mg/dL [facility] Comment: Interpretive Data Fasting glucose >/= 126 [...] 2022. Calcium 8.6 8.5 - 10.3 mg/dL CERNER [facility] Bilirubin, total 1.1 0.1 - 1.2 mg/dL CERNER [facility] Protein, pl 5.6(L) 6.5 - 8.5 g/dL [facility] Albumin 3.0(L) 3.5 - 5.0 g/dL CERNER [facility] Alk phos 261(H) 40 - 130 Units/L [facility] ALT 22 7 - 55 Units/L [facility] AST 32 10 - 50 Units/L [facility] Blood 08/02/2024 7:10 AM CDT 08/02/2024 7:27 AM CDT us Anita Gillespie MD LAB BLOOD ORDERABLES Final Result [facility] [place] [address] documented in this encounter Visit Diagnoses Diagnosis 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 Do not swallow. 11/03/2023 0.9 % sodium chloride (sodium chloride 0.9%) parenteral solutionIndications:L INE CARE Infuse 10 mL into a venous catheter as needed (LINE CARE). Indications: LINE CARE 11/03/2023 documented as of this encounter Orders Lab Orders Without Results Count Last Ordered D ate First Ordered Date IGG 1 11/03/2023 Appointment Requests Count Last Ordered Date Fi rst Ordered Date ONCBCN CLINIC APPOINTMENT REQUEST 2 024 ONCBCN LAB APPOINTMENT 1 11/03/2023 documented in this encounter Care Teams Environmental Protection Officer Relationship Specialty Start Date End Date Adi Nick MD [address] [place] [address] PCP - General Family Practice 05/31/23 04/25/24 Amber Montesinos, RN Malted Milk Mixer Transplant 11/17/19 Jil Duncan MD Consulting Physician Infectious Diseases 01/10/20 Anita Gillespie MD Medical Oncologist/Oliving Machine Operator Medical Oncology 10/07/20 Tabitha Hurley MD [address] [place] [address] Consulting Physician Rheumatology 10/22/21 Massiel Gastelum MD [address] [place] [address] Consulting Physician Otolaryngology 08/27/22 documented as of this encounter
--- OUTSIDE RECORDS SUMMARY | 2024-10-28 06:05 | XMS_ITS | Encounter Summary ---
Author Organization [facility] Address [address] [place] [address] Phone Care Team Providers Care Industrial Tech Instructor Name Role Phone Amber Montesinos RN Unavailable [phone] Jil Duncan MD Unavailable [phone] Anita Gillespie MD Unavailable [phone] Tabitha Hurley MD Unavailable [phone] Massiel Gastelum MD Unavailable [phone] Adi Nick MD Primary Care Provider [phone] Encounter Details Date Type Department Care Team (Late st Contact Info) Description 02/20/2024 2:25 PM CDT Ancillary Procedure [facility] IP [address] [facility] [address] [place] [address] Social History Tobacco Use Types Packs/Day Years Used Date Smoking Tobacco: Never Smokeless Tobacco: Current Chew Alcohol Use Standard Drinks/Week Comments Yes 0 (1 standard drink = 0.6 oz pur e alcohol) occassional OASIS D0700: Social Isolation Answer Da te Recorded Frequency of experiencing loneliness or isolatio n Never 09/04/2023 [facility] Utilities Answer Date Recorded In [...] often do you attend chur ch or yazidi services? 1 to 4 times per year 10/04/2023 Do you belong to any clubs o r organizations such as jehovah's witness groups, unions, fraternal or athletic groups, or [...] slept in a assisted (including now)? No 10/04/2023 Personal Safety Answer Date Recorded Have you ever been in or are you currently in a harmful physical or emotional relationship or is someone making you feel afraid or unsafe? Denies 02/18/2024 Sex and Gender Information Value Date Recorded Sex Assigned at Not on file Legal Sex Male 6:28 AM [employer] Gender Identity Not on file Sexual Orientation Straight 08/22/2021 9: 23 AM CDT documented as of this encounter Plan of Treatment Scheduled Procedures Name Priority Associated Diagnoses Date/Ti me COLONOSCOPY Encounter for screening for colorectal cancer in high risk patient Family history of rectal cancer documented as of this encounter Procedures Procedure Name Priority Date/Time Associated Diagnosis Comments US VEIN DUPLEX LOWER EXTREMITY BILATERAL COMPLETE ED Urgent/IP Urgent 02/20/2024 5:52 PM CDT documented in this encounter Results * US Vein Duplex Lower Extremity Bilateral Complete (02/20/2024 5:52 PM CDT) Anatomical Region Laterality Modality Vascular Bilateral Ultrasound 02/20/2024 2:25 PM CDT Narrative 02/21/2024 8:28 PM CDT [facility] - Department of Vascular Surgery, Vascular Laboratory [address] [place] [address] Lower Extremity Venous Ultrasound Report Patient Name: ADI NICHOLSBen : 1995 (29y ) Study Date: 02/20/2024 2:25:13 PM Gender: M Tech: Lily ROSALVA Location: [id number] [facility] Provider: BROOKE GRANGER ?Quality: Adequate Order Provider: BROOKE GRANGER PROCEDURES: Vascular Report: Venous Duplex imaging was performed bilaterally in the lower extremities. The common femoral, femoral, popliteal, posterior tibial, peroneal veins were evaluated for patency, spontaneity and phasicity with Doppler, compression and augmentation maneuvers. Great saphenous vein proximal at the junction was evaluated with compression maneuvers. INDICATIONS: Hypoxemia. FINDINGS: Performing Nursing Home Assistant Administrator: Carol Malhotra RVT. Bilateral: Venous Doppler signals in the bilateral lower extremity are within normal limits for spontaneity and phasicity and respond normally to augmentation maneuvers. No evidence of deep vein thrombus by duplex, proximal to the calf. CONCLUSIONS: 1. There is no evidence of acute deep vein thrombosis in the lower extremities bilaterally. Noninvasive venous studies cannot rule out isolated calf vein obstruction. HISTORY: PE, Cancer. PREVIOUS STUDIES: Previous study performed on [facility] on 10/12/2023 (Neg. DVT). DISCLAIMER: The study images and the final report will be retained in the patient chart by the Vascular Laboratory for the legally required time period. This chart constitutes the legal record of any testing performed. ATTESTATION: I have reviewed and interpreted the pertinent images and measurements of this study. I attest to the conclusions in the final report that is provided above. Electronically Signed By: Severino Pickett MD FACS 2024-02-21 20:27:47 CDT Procedure Note Severino Pickett MD - 02/21/2024 [facility] - Department of Vascular Surgery,Vascular Laboratory [address] [place] [address] Lower Extremity Venous Ultrasound Report Patient Name: ADI NICHOLS J : 1995 (29y ) Study Date: 02/20/2024 2:25:13 PM Gender: M Tech: Lily MALHOTRA Location: [id number] Ref Provider: BROOKE GRANGER Quality: Adequate Order Provider: BROOKE GRANGER PROCEDURES: Vascular Report: Venous Duplex imaging was performed bilaterally in the lower extremities.The common femoral, femoral, popliteal, posterior tibial, peroneal veins wereevaluated for patency, spontaneity and phasicity with Doppler, compression and augmentationmaneuvers. Great saphenous vein proximal at the junction was evaluated with compressionmaneuvers. INDICATIONS: Hypoxemia. FINDINGS: Performing Nursing Home Assistant Administrator: Carol Malhotra RVT. Bilateral: Venous Doppler signals in the bilateral lower extremity are within normallimits for spontaneity and phasicity and respond normally to augmentation maneuvers.No evidence of deep vein thrombus by duplex, proximal to the calf. CONCLUSIONS: 1. There is no evidence of acute deep vein thrombosis in the lowerextremities bilaterally. Noninvasive venous studies cannot rule out isolated calf veinobstruction. HISTORY: PE, Cancer. PREVIOUS STUDIES: Previous study performed on [facility] on 10/12/2023 (Neg. DVT). DISCLAIMER: The study images and the final report will be retained in the patientchart by the Vascular Laboratory for the legally required time period. This chartconstitutes the legal record of any testing performed. ATTESTATION: I have reviewed and interpreted the pertinent images and measurements ofthis study. I attest to the conclusions in the final report that is provided above. Electronically Signed By: Severino Pickett MD [facility] 2024-02-21 20:27:47 CDT us Brooke Granger LAB DIRECTOR IMG US PROCEDURES Fi nal Result documented in this encounter Visit Diagnoses Not on filedocumented in this encounter Additional Health Concerns Infection Onset Date Last Indicated Resolved Time Rhino/Enterovirus 02/18/2024 02/19/2024 03/04/2024 3:05 AM CDT documented as of this encounter Care Teams Industrial Tech Instructor Relationship Specialty Start Date End Date Adi Nick MD [address] [place] [address] PCP - General Family Practice 05/31/23 04/25/24 Amber Montesinos, SHAILESH Care Team Coordinator Scheduler Transplant 11/17/19 Jil Duncan MD Consulting Physician Infectious Diseases 01/10/20 Anita Gillespie MD Medical Oncologist/[employer]oduck Diver Medical Oncology 10/07/20 Tabitha Hurley MD [address] [place], [place] [id number] Consulting Physician Rheumatology 10/22/21 Massiel Gastelum MD [address] [place] [address] Consulting Physician Otolaryngology 08/27/22 documented as of this encounter
--- OUTSIDE RECORDS SUMMARY | 2024-10-28 06:05 | XMS_ITS | Encounter Summary ---
Author Organization [facility] Address [address] [place] [address] Phone Care Team Providers Care Railroad Watchman Name Role Phone Amber Montesinos RN Unavailable [phone] Jil Duncan MD Unavailable [phone] Anita Gillespie MD Unavailable [phone] Tabitha Hurley MD Unavailable [phone] Massiel Gastelum MD Unavailable Beka Nick MD Primary Care Provider [phone] Encounter Details Date Type Department Care Team (Late st Contact Info) Description 12/06/2023 Orders Only [facility] Infectious Diseases [address] [place] [address] [address] [place] [address] Lisandra Auguste, AIDEN [address] [facility] [address] [place] [address] Subacute cough (Primary Dx) Social History Tobacco Use Types Packs/Day Years Used Date Smoking Tobacco: Never Smokeless Tobacco: Current Chew Alcohol Use Standard Drinks/Week Comments Yes 0 (1 standard drink = 0.6 oz pur e alcohol) occassional OASIS D0700: Social Isolation Answer Da te Recorded Frequency of experiencing loneliness or isolatio n Never 09/04/[address] [facility] Utilities [...] slept in a jail (including now)? No 10/04/2023 Personal Safety Answer Date Recorded Have you ever been in or are you currently in a harmful physical or emotional relationship or is someone making you feel afraid or unsafe? Denies 10/03/2023 Sex and Gender Information Value Date Recorded Sex Assigned at Not on file Legal Sex Male 6:28 AM BORDEREAU CLERK Gender Identity Not on file Sexual Orientation Straight 08/22/2021 9: 23 AM CDT documented as of this encounter Plan of Treatment Scheduled Procedures Name Priority Associated Diagnoses Date/Ti me COLONOSCOPY Encounter for screening for colorectal cancer in high risk patient Family history of rectal cancer documented as of this encounter Results * X-ray chest 2 views (01/05/2024 10:41 AM BORDEREAU CLERK) Anatomical Region Laterality Modality Body, Chest N/A Computed Radiogr aphy 01/05/2024 11:1 6 AM BORDEREAU CLERK Impressions 01/05/2024 11:16 AM BORDEREAU CLERK The current study is compared with the prior radiograph dated 11/29/2023. ??There has been interval improvement in peripheral airspace opacity in the right lower lung. ??There is only extremely minimal residual compatible with sequela of a prior pneumonia. Blunting of both costophrenic angles is seen which could be due to scarring versus tiny effusions. ??There is no pneumothorax.. ??The heart and mediastinal contours are stable.. Numerous surgical clips are seen in the right upper quadrant of the abdomen. Electronically signed by: Darcy Jimenez M.D. Narrative 01/05/2024 11:16 AM BORDEREAU CLERK EXAMINATION: 2 view chest radiograph Procedure Note Darcy Jimenez MD - 01/05/2024 EXAMINATION: 2 view chest radiograph IMPRESSION: The [...] the right upper quadrant of the abdomen. Electronically signed by: Dracy Jimenez M.D. us Lisandra Auguste MEDICAL ASSISTANT INSTRUCTOR IMG XR PROCEDURES Final R esult documented in this encounter Visit Diagnoses Diagnosis Subacute cough- Primary Subacute cough documented in this encounter Care Teams Railroad Watchman Relationship Specialty Start Date End Date Beka Nick MD [address] [place] [address] PCP - General Family Practice 05/31/23 04/25/24 Amber Montesinos, RN Carpenter Railcar Transplant 11/17/19 Jil Duncan MD Consulting Physician Infectious Diseases 01/10/20 Anita Gillespie MD Medical Oncologist/Excavating Machine Operator Medical Oncology 10/07/20 Tabitha Hurley MD [address] [place] [address] Consulting Physician Rheumatology 10/22/21 Massiel Gastelum MD [address] [place] [address] Consulting Physician Otolaryngology 08/27/22 documented as of this encounter
--- OUTSIDE RECORDS SUMMARY | 2024-10-28 06:05 | XMS_ITS | Encounter Summary ---
Author Organization [facility] Healthcare Address [address] [place] [address] Care Team Providers Care Board Filler Name Role Phone Amber Montesinos RN Unavailable [phone] Jil Duncan MD Unavailable [phone] Anita Gillespie MD Unavailable [phone] Tabitha Hurley MD Unavailable [phone] Massiel Gastelum MD Unavailable [phone] Beka Nick MD Primary Care Provider [phone] Encounter Details Date Type Department Care Team (Late st Contact Info) Description 11/27/2023 Orders Only [facility] Health Information Management [address] [place] [address] Scanning, Provider Social History Tobacco Use Types Packs/Day Years Used Date Smoking Tobacco: Never Smokeless Tobacco: Current Chew Alcohol Use Standard Drinks/Week Comments Yes 0 (1 standard drink = 0.6 oz pur e alcohol) occassional OASIS D0700: Social Isolation Answer Da te Recorded Frequency of experiencing loneliness or isolatio n Never 09/04/2023 [facility] Utilities Answer Date Recorded In [...] How often do you attend chur or methodist services? 1 to 4 times per year 10/04/2023 Do you belong to any clubs o r organizations such as orthodox groups, unions, fraternal or athletic groups, or [...] slept in a long-term (including now)? No 10/04/2023 Personal Safety Answer Date Recorded Have you ever been in or are you currently in a harmful physical or emotional relationship or is someone making you feel afraid or unsafe? Denies 10/03/2023 Sex and Gender Information Value Date Recorded Sex Assigned at Not on file Legal Sex Male 6:28 AM ANIMAL CONTROL LICENSING WORKER Gender Identity Not on file Sexual Orientation Straight 08/22/2021 9: 23 AM CDT documented as of this encounter Plan of Treatment Scheduled Procedures Name Priority Associated Diagnoses Date/Ti me COLONOSCOPY Encounter for screening for colorectal cancer in high risk patient Family history of rectal cancer documented as of this encounter Procedures Procedure Name Priority Date/Time Associated Diagnosis Comments SCAN - LABS 11/27/2023 11:59 AM ANIMAL CONTROL LICENSING WORKER documented in this encounter Results * SCAN - LABS (11/27/2023 11:59 AM ANIMAL CONTROL LICENSING WORKER) us Provider Scanning Final Result documented in this encounter Visit Diagnoses Not on filedocumented in this encounter Care Teams Board Filler Relationship Specialty Start Date End Date Beka Nick MD [address] [place] [address] PCP - General Family Practice 05/31/23 04/25/24 Amber Montesinos, SHAILESH Capacity Analyst Transplant 11/17/19 Jil Duncan MD Consulting Physician Infectious Diseases 01/10/20 Anita Gillespie MD Medical Oncologist/Professor Of Marketing Medical Oncology 10/07/20 Tabitha Hurley MD [address] [place] [address] Consulting Physician Rheumatology 10/22/21 Massiel Gastelum MD [address] [place] [address] Consulting Physician Otolaryngology 08/27/22 documented as of this encounter
--- OUTSIDE RECORDS SUMMARY | 2024-10-28 06:05 | XMS_ITS | Encounter Summary ---
Author Organization [facility] Address [address] [place] [address] Phone Care Team Providers Care Box Strapper Name Role Phone Amber Montesinos RN Unavailable [phone] Jil Duncan MD Unavailable [phone] Anita Gillespie MD Unavailable [phone] Tabitha Hurley MD Unavailable [phone] Massiel Gastelum MD Unavailable [phone] Beka Nick MD Primary Care Provider [phone] Encounter Details Date Type Department Care Team (Late st Contact Info) Description 11/12/2023 Documentation [facility] Gastroenterology [address] [facility] Advanced Medicine 12th [place] [address] [place] [address] Jenelle Hernandez RN Social History Tobacco Use Types Packs/Day Years Used Date Smoking Tobacco: Never Smokeless Tobacco: Current Chew Alcohol Use Standard Drinks/Week Comments Yes 0 (1 standard drink = 0.6 oz pur e alcohol) occassional OASIS D0700: Social Isolation Answer Da te Recorded Frequency of experiencing loneliness or isolatio n Never 09/04/2023 [facility] Utilities Answer Date Recorded In [...] often do you attend chur ch or judaism services? 1 to 4 times per year [...] slept in a correction (including now)? No 10/04/2023 Personal Safety Answer Date Recorded Have you ever been in or are you currently in a harmful physical or emotional relationship or is someone making you feel afraid or unsafe? Denies 10/03/2023 Sex and Gender Information Value Date Recorded Sex Assigned at Not on file Legal Sex Male 6:28 AM MACERATOR OPERATOR Gender Identity Not on file Sexual Orientation Straight 08/22/2021 9: 23 AM CDT documented as of this encounter Ordered Prescriptions Prescription Sig Dispense Quantity Refills Last Filled Start Date End Date spironolactone (ALDACTONE) 50 mg tablet Take 2 tablets (100 mg total) by mouth daily 60 tablet 1 11/12/2023 4 furosemide (LASIX) 20 mg tablet Take 2 tablets (40 mg total) by mouth daily 60 tablet 1 11/12/2023 4 documented in this encounter Progress Notes * Jenelle Hernandez RN - 11/12/2023 9:53 AM CST Received call from pharmacy for refill of lasix and spironolactone. Rx called into pharmacy. RATOR OPERATOR documented in this encounter Plan of [...] (40 mg total) by mouth daily Reorder 10/14/2023 11/12/2023 spironolactone (ALDACTONE) 50 mg tablet Take 2 tablets (100 mg total) by mouth daily Reorder 10/14/2023 11/12/2023 documented as of this encounter Care Teams Box Strapper Relationship Specialty Start Date End Date Beka Nick MD [address] [place] [address] PCP - General Family Practice 05/31/23 04/25/24 Amber Montesinos, SHAILESH Highway Technician Transplant 11/17/19 Jil Duncan MD Consulting Physician Infectious Diseases 01/10/20 Anita Gillespie MD Medical Oncologist/Match Maker Medical Oncology 10/07/20 Tabitha Hurley MD [address] [place] [address] Consulting Physician Rheumatology 10/22/21 Massiel Gastelum MD [address] [place] [address] Consulting Physician Otolaryngology 08/27/22 documented as of this encounter
--- OUTSIDE RECORDS SUMMARY | 2024-10-28 06:05 | XMS_ITS | Encounter Summary ---
Author Organization [facility] Healthcare Address [address] [place] [address] Care Team Providers Care Reference Services Head Name Role Phone Amber Montesinos RN Unavailable [phone] Jil Duncan MD Unavailable [phone] Anita Gillespie MD Unavailable [phone] Tabitha Hurley MD Unavailable [phone] Massiel Gastelum MD Unavailable [phone] Beka Nick MD Primary Care Provider [phone] Encounter Details Date Type Department Care Team (Late st Contact Info) Description 01/05/2024 Orders Only [facility] Health Information Management [address] [place] [address] Scanning, Provider Social History Tobacco Use Types [...] How often do you attend chur or judaism services? 1 to 4 times [...] slept in a usp (including now)? No 10/04/2023 Personal Safety Answer Date Recorded Have you ever been in or are you currently in a harmful physical or emotional relationship or is someone making you feel afraid or unsafe? Denies 10/03/2023 Sex and Gender Information Value Date Recorded Sex Assigned at Not on file Legal Sex Male 6:28 AM WEB APPLICATION DEV SPECIALIST Gender Identity Not on file Sexual Orientation Straight 08/22/2021 9: 23 AM CDT documented as of this encounter Plan of Treatment Scheduled Procedures Name Priority Associated Diagnoses Date/Ti me COLONOSCOPY Encounter for screening for colorectal cancer in high risk patient Family history of rectal cancer documented as of this encounter Procedures Procedure Name Priority Date/Time Associated Diagnosis Comments SCAN - LABS 01/05/2024 2:38 PM WEB APPLICATION DEV SPECIALIST documented in this encounter Results * SCAN - LABS (01/05/2024 2:38 PM WEB APPLICATION DEV SPECIALIST) us Provider Scanning Final Result documented in this encounter Visit Diagnoses Not on filedocumented in this encounter Care Teams Reference Services Head Relationship Specialty Start Date End Date Beka Nick MD [address] [place] [address] PCP - General Family Practice 05/31/23 04/25/24 Amber Montesinos, SHAILESH Greens Cutter Transplant 11/17/19 Jil Duncan MD Consulting Physician Infectious Diseases 01/10/20 Anita Gillespie MD Medical Oncologist/Acid Cutter Medical Oncology 10/07/20 Tabitha Hurley MD [address] [place] [address] Consulting Physician Rheumatology 10/22/21 Massiel Gastelum MD [address] [place] [address] Consulting Physician Otolaryngology 08/27/22 documented as of this encounter
--- OUTSIDE RECORDS SUMMARY | 2024-10-28 06:05 | XMS_ITS | Encounter Summary ---
Author Organization [facility] Healthcare Address [address] [place] [address] Care Team Providers Care Account Manager Trainee Name Role Phone Amber Montesinos RN Unavailable [phone] Jil Duncan MD Unavailable [phone] Anita Gillespie MD Unavailable [phone] Tabitha Hurley MD Unavailable [phone] Massiel Gastelum MD Unavailable [phone] Beka Nick MD Primary Care Provider [phone] Encounter Details Date Type Department Care Team (Late st Contact Info) Description 01/01/2024 Orders Only [facility] Health Information Management [address] [place] [address] Scanning, Provider Social History Tobacco Use Types Packs/Day Years Used Date Smoking Tobacco: Never Smokeless Tobacco: Current Chew Alcohol Use Standard Drinks/Week Comments Yes 0 (1 standard drink = 0.6 oz pur e alcohol) occassional OASIS D0700: Social Isolation Answer Da te Recorded Frequency of experiencing loneliness or isolatio n Never 09/04/2023 [facility] Utilities Answer Date Recorded In the [...] How often do you attend chur or yarsanism services? 1 to 4 times per year 10/04/2023 Do you belong to any clubs o r organizations such as mu-ism groups, unions, fraternal or athletic groups, or [...] on file Legal Sex Male 6:28 AM BUYING AGENT Gender Identity Not on file Sexual Orientation Straight 08/22/2021 9: 23 AM CDT documented as of this encounter Plan of Treatment Scheduled Procedures Name Priority Associated Diagnoses Date/Ti me COLONOSCOPY Encounter for screening for colorectal cancer in high risk patient Family history of rectal cancer documented as of this encounter Procedures Procedure Name Priority Date/Time Associated Diagnosis Comments SCAN - LABS 01/01/2024 11:58 AM BUYING AGENT documented in this encounter Results * SCAN - LABS (01/01/2024 11:58 AM BUYING AGENT) us Provider Scanning Final Result documented in this encounter Visit Diagnoses Not on filedocumented in this encounter Care Teams Account Manager Trainee Relationship Specialty Start Date End Date Beka Nick MD [address] [place] [address] PCP - General Family Practice 05/31/23 04/25/24 Amber Montesinos, SHAILESH Printing Services Coordinator Transplant 11/17/19 Jil Duncan MD Consulting Physician Infectious Diseases 01/10/20 Anita Gillespie MD Medical Oncologist/Blacksmith Helper Medical Oncology 10/07/20 Tabitha Hurley MD [address] [place] [address] Consulting Physician Rheumatology 10/22/21 Massiel Gastelum MD [address] [place] [address] Consulting Physician Otolaryngology 08/27/22 documented as of this encounter
--- OUTSIDE RECORDS SUMMARY | 2024-10-28 06:05 | XMS_ITS | Encounter Summary ---
Author Organization [facility] Address [address] [place] [address] Phone Care Team Providers Care Diesel Instructor Name Role Phone Amber Montesinos RN Unavailable [phone] Jil Duncan MD Unavailable [phone] Anita Gillespie MD Unavailable [phone] Tabitha Hurley MD Unavailable [phone] Massiel Gastelum MD Unavailable [phone] Beka Nick MD Primary Care Provider [phone] Reason for Visit * Reason Comments Follow-up Chronic pansinusitis Encounter Details Date Type Department Care Team (Latest Contact Info) Description 02/07/2024 8:40 AM CDT Office Visit [facility] ENT [address] [facility] Medical Office [address] [place] [address] Massiel Gastelum MD [facility] [facility] [address] [place] [address] Chronic sinusitis, unspecified location (Primary Dx); Chronic pansinusitis; Immunocompromised patient (HCC); Tympanostomy tube check; Acute recurrent maxillary sinusitis; 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); Idiopathic thrombocytopenic purpura (HCC); Autoimmune hepatitis (CMS/HCC) (HCC) Social History Tobacco Use Types Packs/Day Years Used Date Smoking Tobacco: Never Smokeless Tobacco: Current Chew Tobacco Cessation:Ready to Q uit: Not Asked; Counseling Given: Not Answered Alcohol Use Standard Drinks/Week Comments Yes 0 (1 standard drink = 0.6 oz pur e alcohol) occassional OASIS D0700: Social Isolation Answer Da te Recorded Frequency of experiencing loneliness or isolatio n Never 09/04/2023 [facility] Utilities Answer Date Recorded In the past 12 months has th e [employer] [place], gas, oil, or water [employer] threatened to shut off services in your [...] any clubs o r organizations such as sikhism groups, unions, fraternal or athletic groups, or [...] slept in a fpc (including now)? No 10/04/2023 Personal Safety Answer Date Recorded Have you ever been in or are you currently in a harmful physical or emotional relationship or is someone making you feel afraid or unsafe? Denies 10/03/2023 Sex and Gender Information Value Date Recorded Sex Assigned at Not on file Legal Sex Male 6:28 AM ASSISTANT PRODUCE MANAGER Gender Identity Not on file Sexual Orientation Straight 08/22/2021 9: 23 AM CDT documented as of this encounter Last Filed Vital Signs Vital Sign Reading Time Taken Comments Blood Pressure - - Pulse - - Temperature - - Respiratory Rate - - Oxygen Saturation - - Inhaled Oxygen Concentration - - Weight 66 kg (145 lb 9.6 oz) 02/07/2024 9:10 AM CDT Height 172.7 cm (5' 8 ) 02/07/2024 9:10 AM CDT Body Mass Index 22.14 02/07/2024 9:10 AM CDT documented in this encounter Ordered Prescriptions Prescription Sig Dispense Quantity Refills Last Filled Start Date End Date predniSONE (DELTASONE) 10 mg tablet Take 40Mg PO for 3 days, then 30Mg PO for 3 days, then 20Mg PO for 3 days, then 10Mg PO for 3 days. 30 tablet 02/07/2024 08/02/2024 levoFLOXacin (LEVAQUIN) 500 mg tablet Take 1 tablet (500 mg total) by mouth daily for 21 days 21 tablet 02/07/2024 02/28/2024 documented in this encounter Progress Notes * Massiel Gastelum MD - 02/07/2024 8:40 AM CDT Otolaryngology Note Subjective Patient ID: Beka Nichols is a 29 y.o. male. Chief Complaint: Chief Complaint Patient presents with Follow-up Chronic pansinusitis HPI: Beka Nichols is a 29 y.o. 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 He is status post endoscopic sinus surgery (bilateral maxillary antrostomy, total ethmoidectomy, frontal sinusotomy, and sphenoidotomy) and septoplasty on 08/28/2022 for chronic rhinosinusitis and recurrent acute exacerbations. At the time of surgery, he was noted to have generalized edematous and friable mucosa throughout his sinuses. Septum deviated to the left, narrowing access to the middle meatus. Left middle turbinate resected. He was last seen 08/09/2023. He was treated with Levaquin x 3 weeks with prednisone taper 11/04/2023 for acute on chronic sinusitis Also treated recently with a course of Augmentin (from ID) with improvement in late fall. Now again feels sick. Sick contacts at home. Saline irrigation - pressure in ears and face. No ear pain or pressure otherwise. Hearing okay. A few short nosebleeds (<1 min), right, recently. Currently no nasal spray (medicated, saline). On Claritin, no clear benefit. Head pressure currently - associated with being sick, not present at baseline. Sense of smell intermittently present. History of middle ear effusions, underwent left ear tube placement and inability to place right eartube in May 2023 No current ear pain or fullness. He is followed by Dr. Gillespie in Medical Oncology and by Dr. Duncan in Infectious Disease. Objective Ht 172.7 cm (5' 8 ) Wt 66 kg (145 lb 9.6 oz) BMI 22.14 kg/m?? Physical Exam GENERAL: Well-developed, well-nourished. Voice [...] is grossly intact. Right: EAC clear. TM intact with myringosclerosis, middle ear aerated. Left: EAC clear. TM with myringosclerosis, tube in place and patent. Middle ear aerated. NOSE: External nose has no skin lesions. Nasal mucosa is moist. Septum is predominantly midline caudally. Mucopus visualized bilaterally. See endoscopy. NECK: No masses. HEME/LYMPHATIC: No cervical lymphadenopathy. MUSCULOSKELETAL: Ambulates without difficulty. Neck full range of motion. RESPIRATORY: Breathing comfortably without audible stridor, stertor or wheeze. Procedure: Nasal Endoscopy: Due to inadequate visualization on anterior rhinoscopy, rigid nasal endoscopy was undertaken. After topical nasal decongestant and anesthetic, the rigid nasal endoscope (R13) was introduced into the right and left nasal cavity. Thick mucopurulent drainage on both sides, cultured onright. Mild nasal mucosal edema. Thick mucus and crusting removed with #5 Zaina tip suction. Leftsynechiae between the septum and inferior turbinate, not obstructive. Maxillary antrostomies patentbilaterally, no mild erythema and edema of the visualized mucosa. Skull base visible, thin mucopus suctioned from the surface and mild erythema/ edema. No polyps. The endoscope was removed and the patient tolerated the procedure well. Assessment/Plan 1. Chronic sinusitis, unspecified location 2. Chronic pansinusitis 3. Immunocompromised patient (HCC) 4. Tympanostomy tube check 5. Acute recurrent maxillary sinusitis Recommend resuming Saline spray regularly, especially current only at time of acute on chronic sinusitis Levaquin x 3 weeks Prednisone x 12d Reassurance provided regarding ear exam today. . Follow-up 6 months. If [id number] sinusitis recurs, plan Levaquin rx. M. Bonita Gastelum MD FACS Professor Department of Otolaryngology [facility] documented in this encounter Plan of Treatment Scheduled Procedures Name Priority Associated Diagnoses Date/Ti me COLONOSCOPY Encounter for screening for colorectal cancer in high risk patient Family history of rectal cancer documented as of this encounter Visit Diagnoses Diagnosis Chronic sinusitis, unspecified location- Primary Chronic pansinusitis Other chronic sinusitis Immunocompromised patient (HCC) Tympanostomy tube check Follow-up examination, following other surgery Acute recurrent maxillary sinusitis 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) Other neutropenia 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 purpura Autoimmune hepatitis (CMS/HCC) (HCC) Autoimmune hepatitis documented in this encounter Orders Lab Orders Without Results Count Last Ordered D ate First Ordered Date AEROBIC AND ANAEROBIC CULTUR E AND GRAM STAIN 1 02/07/2024 documented in this encounter Care Teams Diesel Instructor Relationship Specialty Start Date End Date Beka Nick MD [address] [place] [address] PCP - General Family Practice 05/31/23 04/25/24 Amber Montesinos, SHAILESH Manager Program Management Transplant 11/17/19 Jil Duncan MD Consulting Physician Infectious Diseases 01/10/20 Anita Gillespie MD Medical Oncologist/Travel Ticketing Reviewer Medical Oncology 10/07/20 Tabitha Hurley MD [address] [place] [address] Consulting Physician Rheumatology 10/22/21 Massiel Gastelum MD [address] [place] [address] Consulting Physician Otolaryngology 08/27/22 documented as of this encounter
--- OUTSIDE RECORDS SUMMARY | 2024-10-28 06:05 | XMS_ITS | Encounter Summary ---
Author Organization [facility] Address [address] [place] [address] Phone Care Team Providers Care Art Critic Name Role Phone Amber Montesinos RN Unavailable [phone] Jil Duncan MD Unavailable [phone] Anita Gillespie MD Unavailable [phone] Tabitha Hurley MD Unavailable [phone] Massiel Gastelum MD Unavailable [phone] Beak Nick MD Primary Care Provider [phone] Encounter Details Date Type Department Care Team (Late st Contact Info) Description 11/03/2023 7:00 AM ORTHOPEDIC SPECIALIST Lab [facility] Oncology [address] [facility] 7th [place] [address] [place] [address] 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 1 to 4 times per year [...] in a nursing home (including now)? No 10/04/2023 Personal Safety Answer Date Recorded Have you ever been in or are you currently in a harmful physical or emotional relationship or is someone making you feel afraid or unsafe? 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) documented in this encounter Orders Appointment Requests Count Last Ordered Date Fi rst Ordered Date ONCBCN LAB APPOINTMENT 1 11/03/2023 documented in this encounter Care Teams Art Critic Relationship Specialty Start Date End Date Beka Nick MD [address] [place] [address] PCP - General Family Practice 05/31/23 04/25/24 Amber Montesinos, SHAILESH Battery Charger Conveyor Line Transplant 11/17/19 Jil Duncan MD Consulting Physician Infectious Diseases 01/10/20 Anita Gillespie MD Medical Oncologist/Hand Tool Lapper Medical Oncology 10/07/20 Tabitha Hurley MD [address] [place] [address] Consulting Physician Rheumatology 10/22/21 Massiel Gastelum MD [address] [place] [address] Consulting Physician Otolaryngology 08/27/22 documented as of this encounter
--- OUTSIDE RECORDS SUMMARY | 2024-10-28 06:05 | XMS_ITS | Encounter Summary ---
Author Organization [facility] Address [address] [place] [address] Phone Care Team Providers Care Double Needle Operator Name Role Phone Amber Montesinos RN Unavailable [phone] Jil Duncan MD Unavailable [phone] Anita Gillespie MD Unavailable [phone] Tabitha Hurley MD Unavailable [phone] Massiel Gastelum MD Unavailable [phone] Beka Nick MD Primary Care Provider [phone] Encounter Details Date Type Department Care Team (Late st Contact Info) Description 12/21/2023 Telephone [facility] Infectious Diseases [address] [place] [address] Ny Templeton [facility] Social History Tobacco Use Types Packs/Day Years Used Date Smoking Tobacco: Never Smokeless Tobacco: Current Chew Alcohol Use Standard Drinks/Week Comments Yes 0 (1 standard drink = 0.6 oz pur e alcohol) occassional OASIS D0700: Social Isolation Answer Da te Recorded Frequency of experiencing loneliness or isolatio n Never 09/04/[address] [facility] Utilities [...] on file Legal Sex Male 6:28 AM DARK ROOM ATTENDANT Gender Identity Not on file Sexual Orientation Straight 08/22/2021 9: 23 AM CDT documented as of this encounter Miscellaneous Notes * Telephone Encounter - Ny Griffin - 12/21/2023 2:17 PM CST AUDREYI, I have reach ed out to him and his mom again to provide this info ROOM ATTENDANT * Telephone Encounter - Ny Templeton LCSW - 12/21/2023 1:59 PM DARK ROOM ATTENDANT The Assistance Program is needing his Household income/Household size and a current phone number. The one that is listed is not active. [facility] Pillowcase Maker that is the only number that we have. [facility] Pillowcase Maker is at [phone] ROOM ATTENDANT documented in this encounter Plan of Treatment Scheduled Procedures Name Priority Associated Diagnoses Date/Ti me COLONOSCOPY Encounter for screening for colorectal cancer in high risk patient Family history of rectal cancer documented as of this encounter Visit Diagnoses Not on filedocumented in this encounter Care Teams Double Needle Operator Relationship Specialty Start Date End Date Beka Nick MD [address] [place] [address] PCP - General Family Practice 05/31/23 04/25/24 Amber Montesinos, SHAILESH Contract Consultant Transplant 11/17/19 Jil Duncan MD Consulting Physician Infectious Diseases 01/10/20 Anita Gillespie MD Medical Oncologist/Electronic Imaging System Operator Medical Oncology 10/07/20 Tabitha Hurley MD [address] [facility] [address] [place], [place] [id number] Consulting Physician Rheumatology 10/22/21 Massiel Gastelum MD [address] [place] [address] Consulting Physician Otolaryngology 08/27/22 documented as of this encounter
--- OUTSIDE RECORDS SUMMARY | 2024-10-28 06:05 | XMS_ITS | Encounter Summary ---
Author Organization [facility] Address [address] [place] [address] Phone Care Team Providers Care Director Post Name Role Phone Amber Montesinos RN Unavailable [phone] Jil Duncan MD Unavailable [phone] Anita Gillespie MD Unavailable [phone] Tabitha Hurley MD Unavailable [phone] Massiel Gastelum MD Unavailable Beka Nick MD Primary Care Provider [phone] Reason for Referral * MRI/CAT/PET Scan (Routine) - Closed Specialty Diagnoses / Procedures Referred By Contac t Referred To Contact Radiology Diagnoses Subacute cough Procedures CT Chest W Contrast CTA Chest W Contrast Lisandra Auguste NP [address] [place] [address] Phone: tel: fax: [address] [address] Referral ID Status Reason Start Date Expiration Date Visits Re quested Visits Authorized [id number] Closed 11/29/2023 05/27/2024 1 1 ENT INTAKE COORDINATOR Reason for Visit * Reason Comments Follow-up Encounter Details Date Type Department Care Team (Latest Contact Info) Description 11/29/2023 9:00 AM PATIENT INTAKE COORDINATOR Office Visit [facility] Infectious Diseases [address] [phone] Lisandra Auguste NP [address] [place] [address] 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HCC) (Primary Dx); Subacute cough; Elevated LFTs Social History Tobacco Use Types Packs/Day Years [...] In the past 12 months has e [employer], gas, oil, or water [employer] threatened to shut off services in your [...] How often do you attend chur or presybeterian services? 1 to 4 times per year 10/04/2023 Do you belong to any clubs o r organizations such as faith groups, unions, fraternal or athletic groups, or [...] on file Legal Sex Male 6:28 AM PATIENT INTAKE COORDINATOR Gender Identity Not on file Sexual Orientation Straight 08/22/2021 9: 23 AM CDT documented as of this encounter Last Filed Vital Signs Vital Sign Reading Time Taken Comments Blood Pressure 124/82 11/29/2023 8:49 AM PATIENT INTAKE COORDINATOR Pulse 88 11/29/2023 8:49 AM PATIENT INTAKE COORDINATOR Temperature 36.6 ??C (97.9 ??F) 11/29/2023 8:49 AM CS T Respiratory Rate - - Oxygen Saturation - - Inhaled Oxygen Concentration - - Weight 59.9 kg (132 lb) 11/29/2023 8:49 AM PATIENT INTAKE COORDINATOR Height - - Body Mass Index 20.07 10/09/2023 8:55 PM PATIENT INTAKE COORDINATOR documented in this encounter Patient Instructions * Patient Instructions* Lisandra Auguste NP - 11/29/2023 9:00 AM PATIENT INTAKE COORDINATOR - Continue letermovir and valganciclovir - CMV labs monthly at [facility] Please get a chest x-ray today. CAM [address] floor [address] ENT INTAKE COORDINATOR ENT INTAKE COORDINATOR documented in this encounter Progress Notes * Lisandra Auguste NP - 11/29/2023 9:00 AM CST Infectious Diseases Return Visit Patient Name: Beka Nichols [facility] INFECTIOUS DISEASES [address] [place] [phone] Subjective Chief complaint of CMV viremia HPI: Beka Nichols is a 28 y.o. male with a history of refractor [...] [place] [address]. He was also noted to have lymphadenopathy [...] levels starting 06/20/22. He was admitted to [facility] 07/09-07/12/22 due to persistent CMV viremia while on marabovir along with 2 week history of cough, fevers, chills, fatigue/malaise. RVP positive for rhinovirus and adenovirus. CMV resistance testing obtained which showed resistance to maribavir. This was discontinued on 07/16/23and he was restarted on Valcyte 900 mg PO BID. CMV levels at OSH on 11/14/22 were [address]. Reached out to patient and it seemed [...] abdominal distention, jaundice, and edema. Admitted to [facility] and found to have E coli bacteremia w/ imaging concerning for enterocolitis. CMV PCR +2980. Completed 2 weeks of ciprofloxacin and IV foscarnet. He was then placed on valcyte 900 mg PO BID and letermovir 480 mg PO daily. CMV mutation testing shows resistance to maribavir. Readmitted to [facility] 10/2023 with cough and back pain and found to have exudative pleural effusion. Aspergillus galactomannan on 10/04/23 was 0.67, repeat on 10/07/23 was negative. CMV PCR 121. Chest tubeplace w/ fungal culture negative. Given empiric course of Augmentin and discharged to resume letermovir and valganciclovir. Interval History: Patient presents to ID clinic today accompanied by his mother for routine follow up. He remains on letermovir and valganciclovir and overall feels well. He denies any recent fevers or chills. Lower extremity swelling, abdominal distension, and jaundice has resolved. He is taking furosemide but is hoping to wean off this soon. He has no pain. Does have a rash to his chest and abdomen which is improving. He reports switching soaps prior to this rash starting and it has been improving since switching back to his previous soap. He will see dermatology for this on Wednesday. He continues to have a cough since hospitalization that is occasionally productive. Also has some shortness of breath with exertion. ROS: Review of Systems Constitutional: Negative for activity change, appetite change, chills, diaphoresis, fatigue, fever and unexpected weight change. Eyes: Negative for photophobia, redness and visual disturbance. Respiratory: Positive for cough and shortness of breath (w/ exertion). Cardiovascular: Negative for leg swelling. Gastrointestinal: Negative for abdominal distention, abdominal pain, diarrhea, nausea and vomiting. Musculoskeletal: Negative for arthralgias and myalgias. Skin: Negative for rash. 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) Immunocompromised patient (HCC) Community acquired pneumonia Lymphadenopathy half-way current use of immunosuppressive drug 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HCC) Elevated LFTs On antiviral therapy Myalgia Muscle weakness Chronic pansinusitis Immunocompromised (HCC) Subcutaneous nodule of right lower extremity Eustachian tube dysfunction, bilateral Macrocytic anemia Ansarca Gram-negative bacteremia Rhinovirus Hypocalcemia and hypomagnesemia Jaundice Acute superficial DVT of left upper extremity Colitis Edema of left lower extremity Parapneumonic effusion Subacute cough Allergies: Patient has no known allergies. HOME MEDICATIONS : furosemide (LASIX) 20 mg tablet letermovir (PREVYMIS) 480 mg tablet spironolactone (ALDACTONE) 50 mg tablet tacrolimus 0.5 mg immediate-release capsule ursodioL (ACTIGALL) 300 mg capsule valGANciclovir (VALCYTE) 450 mg tablet [facility] heparin lock flush, porcine, magnesium oxide (MAG-OX) 400 mg (241.3 mg elemental magnesium) tablet Physical Exam Constitutional: General: He is not in acute distress. Appearance: He is not toxic-appearing. HENT: Head: Normocephalic and atraumatic. Eyes: Extraocular Movements: Extraocular movements intact. Cardiovascular: Rate and Rhythm: Normal rate and regular rhythm. Heart sounds: Normal heart sounds. No murmur heard. Pulmonary: Effort: Pulmonary effort is normal. No respiratory distress. Breath sounds: Normal breath sounds. Skin: General: Skin is warm and dry. Findings: Rash (dry, flat rash to abdomen and chest) present. Neurological: General: No focal deficit present. Mental Status: He is alert and oriented to person, place, and time. Mental status is at baseline. Psychiatric: Mood and Affect: Mood normal. Behavior: Behavior normal. Thought Content: Thought content normal. Judgment: Judgment normal. Lab/Microbiology/Radiology/Diagnostic Review: Laboratory: Lab Results Component Value Date WBC 7.3 11/03/2023 HGB 12.0 (L) 11/03/2023 HCT 34.7 (L) 11/03/2023 MCV 115.9 (H) 11/03/2023 LABPLAT 294 11/03/2023 Lab Results Component Value Date GLUCOSE 90 11/03/2023 CALCIUM 8.2 (L) 11/03/2023 SODIUM 137 11/03/2023 POTASSIUM 4.2 11/03/2023 CO2 26 11/03/2023 CHLORIDE 105 11/03/2023 BUNSER 13 11/03/2023 CREATININE 0.70 11/27/2023 Lab Results Component Value Date ALT 36 11/03/2023 AST 49 11/03/2023 ALKPHOS 265 (H) 11/03/2023 BILITOT 2.4 (H) 11/03/2023 Assessment/Plan 28 y.o. male with history of refractory ITP [...] BID and letermovir 480 mg PO daily. 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HCC) - Clinically doing well on exam today overall except for continued cough. Last CMV PCR 10/21 was 507. His only complaint today is a persistent cough. - Continue valganciclovir 900 mg PO BID and letermovir 480 mg PO daily for treatment of CMV. If CMVPCR becomes consistently undetectable will consider decreased dose of valganciclovir for maintenance. - Repeat CMV PCR monthly. Standing orders faxed to [facility] in [place], [place]. Printed orders also given to Beka's mother Elevated LFTs - LFTs all improving. No jaundice, abdominal distension, or edema on exam today Subacute cough - Recent hospitalization where he was found [...] CT PE chest later this week at [facility]. He will call with any worsening symptoms. Follow up: - Return in about 3 months (around 02/28/2024). Visit Diagnosis: 1. 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HCC) 2. Subacute cough 3. Elevated LFTs Lisandra Ramirez the Nurse Practitioner, have reviewed and examined this patient with thesupervising MD present in the office suite, Dr. Duncan. Cosigned by Jil Duncan MD at 11/30/2023 11:34 AM PATIENT INTAKE COORDINATOR ENT INTAKE COORDINATOR ENT INTAKE COORDINATOR Associated attestation - Jil Duncan MD - 11/30/2023 11:34 AM PATIENT INTAKE COORDINATOR I have seen and examined the patient. I agree with the findings and plan of care as documented in the FIBER PRODUCT CUTTING 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's note. documented in this encounter Miscellaneous Notes * Assessment & Plan Note - Lisandra Auguste NP - 11/29/2023 1:06 PM PATIENT INTAKE COORDINATOR Associated Problem(s): Chronic cough - Recent hospitalization where he was found [...] CT PE chest later this week at [facility]. He will call with any worsening symptoms. ENT INTAKE COORDINATOR ENT INTAKE COORDINATOR * Assessment & Plan Note - Lisandra Auguste NP - 11/29/2023 1:05 PM PATIENT INTAKE COORDINATOR Associated Problem(s): Elevated LFTs - LFTs all improving. No jaundice, abdominal distension, or edema on exam today ENT INTAKE COORDINATOR * Assessment & Plan Note - Lisandra Auguste NP - 11/29/2023 1:05 PM PATIENT INTAKE COORDINATOR Associated Problem(s): 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HCC) - Clinically doing well on exam today overall except for continued cough. Last CMV PCR 10/21 was 507. His only complaint today is a persistent cough. - Continue valganciclovir 900 mg PO BID and letermovir 480 mg PO daily for treatment of CMV. If CMVPCR becomes consistently undetectable will consider decreased dose of valganciclovir for maintenance. - Repeat CMV PCR monthly. Standing orders faxed to [facility] in [place], [place]. Printed orders also given to Beka's mother ENT INTAKE COORDINATOR documented in this encounter Plan of Treatment Scheduled Orders Name Type Priority Associated Diagnoses Order Schedule Cytomegalovirus (CMV) DNA PCR, quantitative Blood Microbiology Routine 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[facility]) monthly for 12 Occurrences starting 11/29/2023 until 11/29/2024 Scheduled Procedures Name Priority Associated Diagnoses Date/Ti me COLONOSCOPY Encounter for screening for colorectal cancer in high risk patient Family history of rectal cancer documented as of this encounter Results * CT Chest W Contrast (12/03/2023 11:00 AM PATIENT INTAKE COORDINATOR) Anatomical Region Laterality Modality Body N/A Computed Tomogra phy 12/03/2023 11:2 5 AM PATIENT INTAKE COORDINATOR Impressions 12/03/2023 11:25 AM PATIENT INTAKE COORDINATOR 1. ??Chest radiograph abnormality as a CT [...] Jez Gill M.D. Narrative 12/03/2023 11:25 AM PATIENT INTAKE COORDINATOR EXAMINATION: ??Computed tomography of the chest with [...] signed by: Jez Gill M.D. Lisandra Auguste NP IMG CT PROCEDURES Final R esult * X-ray chest 2 views (11/29/2023 10:15 AM PATIENT INTAKE COORDINATOR) Anatomical Region Laterality Modality Body, Chest N/A Computed Radiogr aphy 11/29/2023 11:0 9 AM PATIENT INTAKE COORDINATOR Impressions 11/29/2023 11:09 AM PATIENT INTAKE COORDINATOR Comparison to 10/12/2023. Previously seen moderate left-sided pleural effusion is decreased in size from prior, now small. ?? There is a new small right-sided pleural effusion. ??There is a new peripheral, somewhat wedge-shaped right mid lung opacity. Differential considerations include infection versus pulmonary infarction. ??Clinical correlation is recommended and consideration of CT if there is clinical concern for pulmonary embolism. No pneumothorax. ??Heart and mediastinum are unchanged. Electronically signed by: Dl Cabrera M.D. Narrative 11/29/2023 11:09 AM PATIENT INTAKE COORDINATOR EXAMINATION: 2 view chest radiograph Procedure Note Dl Cabrera MD - 11/29/2023 EXAMINATION: 2 view chest radiograph IMPRESSION: Comparison to 10/12/2023. Previously seen moderate left-sided pleural effusion is decreased in size from prior, now small. There is a new small right-sided pleural effusion. There is a new peripheral, somewhat wedge-shaped right mid lung opacity. Differential considerations include infection versus pulmonary infarction. Clinical correlation is recommended and consideration of CT if there is clinical concern for pulmonary embolism. No pneumothorax. Heart and mediastinum are unchanged. Electronically signed by: Dl Cabrera M.D. Lisandra Auguste NP IMG XR PROCEDURES Final R esult documented in this encounter Visit Diagnoses Diagnosis 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 Subacute cough Elevated LFTs Other abnormal blood chemistry 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 Subacute cough documented in this encounter Care Teams Director Post Relationship Specialty Start Date End Date Beka Nick MD [address] [place] [address] PCP - General Family Practice 05/31/23 04/25/24 Amber Montesinos RN Computer Systems Designer Transplant 11/17/19 Jil Duncan MD Consulting Physician Infectious Diseases 01/10/20 Anita Gillespie MD Medical Oncologist/Animal Cop Medical Oncology 10/07/20 Tabitha Hurley MD [address] [facility] [address] [place], [place] [id number] Consulting Physician Rheumatology 10/22/21 Massiel Gastelum MD [address] [place] [address] Consulting Physician Otolaryngology 08/27/22 documented as of this encounter
--- OUTSIDE RECORDS SUMMARY | 2024-10-28 06:05 | XMS_ITS | Encounter Summary ---
Author Organization [facility] Healthcare Address [address] [place] [address] Care Team Providers Care Waste Duster Name Role Phone Genie Montesinos RN Unavailable [phone] Jil Duncan MD Unavailable [phone] Anita Gillespie MD Unavailable [phone] Tabitha Hurley MD Unavailable [phone] Massiel Gastelum MD Unavailable Beka Nick MD Primary Care Provider [phone] Encounter Details Date Type Department Care Team (Late st Contact Info) Description 01/03/2024 Telephone [facility] Transplant Liver [address] [facility] [id number] [place] [address] Ana Grant Social History Tobacco Use Types Packs/Day Years Used Date Smoking Tobacco: Never Smokeless Tobacco: Current Chew Alcohol Use Standard Drinks/Week Comments Yes 0 (1 standard drink = 0.6 oz pur e alcohol) occassional OASIS D0700: Social Isolation Answer Da te Recorded Frequency of experiencing loneliness or isolatio n Never 09/04/2023 [facility] Utilities Answer Date Recorded In the [...] on file Legal Sex Male 6:28 AM UTILITY SYSTEM REPAIRER Gender Identity Not on file Sexual Orientation Straight 08/22/2021 9: 23 AM CDT documented as of this encounter Ordered Prescriptions Prescription Sig Dispense Quantity Refills Last Filled Start Date End Date tacrolimus 0.5 mg immediate-release capsuleIndications :Prevention of Liver Transplant Rejection Take 1 capsule (0.5 mg total) by mouth every other day 45 capsule 3 01/03/2024 documented in this encounter Miscellaneous Notes * Addendum Note - Genie Leon RN - 01/03/2024 4:09 PM CSTAddended by: GENIE LEON on: 01/03/2024 04:09 PM Modules accepted: Orders ITY SYSTEM REPAIRER * Telephone Encounter - Ana Grant - 01/03/2024 4:03 PM CST [facility] Pharm[facility] left voicemail on after hours line on Wednesday at 354 PM requesting a call back from coordinator regarding: Patient needs refill of Tacrolimus 0.5 mg 90 day refill. Call [facility] with questions. [facility] [address] [address] [facility] [address] ITY SYSTEM REPAIRER documented in this encounter Plan of Treatment Scheduled Procedures Name Priority Associated Diagnoses Date/Ti me COLONOSCOPY Encounter for screening for colorectal cancer in high risk patient Family history of rectal cancer documented as of this encounter Visit Diagnoses Not on filedocumented in this encounter Discontinued Medications Medication Sig Discontinue Reason Start Date End Da te tacrolimus 0.5 mg immediate-release capsuleIndications:Preve ntion of Liver Transplant Rejection Take 1 capsule (0.5 mg total) by mouth every other day Reorder 11/09/2023 01/03/2024 documented as of this encounter Care Teams Waste Duster Relationship Specialty Start Date End Date Beka Nick MD [address] [place] [address] PCP - General Family Practice 05/31/23 04/25/24 Genie Montesinos, SHAILESH Diversity Specialist Transplant 11/17/19 Jil Duncan MD Consulting Physician Infectious Diseases 01/10/20 Anita Gillespie MD Medical Oncologist/Molecular Physicist Medical Oncology 10/07/20 Tabitha Hurley MD [address] [place] [address] Consulting Physician Rheumatology 10/22/21 Massiel Gastelum MD [address] [place] [address] Consulting Physician Otolaryngology 08/27/22 documented as of this encounter
--- OUTSIDE RECORDS SUMMARY | 2024-10-28 06:05 | XMS_ITS | Encounter Summary ---
Author Organization [facility] Healthcare Address [address] [place] [address] Care Team Providers Care Supervisor Calibration Name Role Phone Amber Montesinos RN Unavailable [phone] Jil Duncan MD Unavailable [phone] Anita Gillespie MD Unavailable [phone] Tabitha Hurley MD Unavailable [phone] Massiel Gastelum MD Unavailable [phone] Beka Nick MD Primary Care Provider [phone] Encounter Details Date Type Department Care Team (Late st Contact Info) Description 12/01/2023 Orders Only [facility] Health Information Management [address] [place] [address] Scanning, Provider Social History Tobacco Use Types Packs/Day Years Used Date Smoking Tobacco: Never Smokeless Tobacco: Current Chew Alcohol Use Standard Drinks/Week Comments Yes 0 (1 standard drink = 0.6 oz pur e alcohol) occassional OASIS D0700: Social Isolation Answer Da te Recorded Frequency of experiencing loneliness or isolatio n Never 09/04/2023 [facility] Utilities Answer Date Recorded In the [...] How often do you attend chur or catholic services? 1 to 4 times per year 10/04/2023 Do you belong to any clubs o r organizations such as rastafarian groups, unions, fraternal or athletic groups, or [...] slept in a chcf (including now)? No 10/04/2023 Personal Safety Answer Date Recorded Have you ever been in or are you currently in a harmful physical or emotional relationship or is someone making you feel afraid or unsafe? Denies 10/03/2023 Sex and Gender Information Value Date Recorded Sex Assigned at Not on file Legal Sex Male 6:28 AM APPLICATIONS ADMINISTRATOR Gender Identity Not on file Sexual Orientation Straight 08/22/2021 9: 23 AM CDT documented as of this encounter Plan of Treatment Scheduled Procedures Name Priority Associated Diagnoses Date/Ti me COLONOSCOPY Encounter for screening for colorectal cancer in high risk patient Family history of rectal cancer documented as of this encounter Procedures Procedure Name Priority Date/Time Associated Diagnosis Comments SCAN - LABS 12/01/2023 2:15 AM APPLICATIONS ADMINISTRATOR documented in this encounter Results * SCAN - LABS (12/01/2023 2:15 AM APPLICATIONS ADMINISTRATOR) us Provider Scanning Final Result documented in this encounter Visit Diagnoses Not on filedocumented in this encounter Care Teams Supervisor Calibration Relationship Specialty Start Date End Date Beka Nick MD [address] [place] [address] PCP - General Family Practice 05/31/23 04/25/24 Amber Montesinos, SHAILESH Motor And Generator Brush Cutter Transplant 11/17/19 Jil Duncan MD Consulting Physician Infectious Diseases 01/10/20 Anita Gillespie MD Medical Oncologist/Motorcoach Operator Medical Oncology 10/07/20 Tabitha Hurley MD [address] [place] [address] Consulting Physician Rheumatology 10/22/21 Massiel Gastelum MD [address] [place] [address] Consulting Physician Otolaryngology 08/27/22 documented as of this encounter
--- OUTSIDE RECORDS SUMMARY | 2024-10-28 06:05 | XMS_ITS | Encounter Summary ---
Author Organization [facility] Address [address] [place] [address] Phone Care Team Providers Care Electronic Masking System Operator Name Role Phone Amber Montesinos RN Unavailable [phone] Jil Duncan MD Unavailable [phone] Anita Gillespie MD Unavailable [phone] Tabitha Hurley MD Unavailable [phone] Massiel Gastelum MD Unavailable Adi Nick MD Primary Care Provider [phone] Reason for Visit * Reason Comments Rash Encounter Details Date Type Department Care Team (Late st Contact Info) Description 12/03/2023 9:45 AM PAYMENT POSTER Office Visit [facility] Dermatology [facility] [address] [place] [address] Leeanna Dewitt MD [address] [facility] [address] [place] [address] Neoplasm of unspecified behavior of bone, soft tissue, and skin (Primary Dx); Dermatitis, unspecified Social History Tobacco Use Types Packs/Day Years Used Date Smoking Tobacco: Never Smokeless Tobacco: Current Chew Alcohol Use Standard Drinks/Week Comments Yes 0 (1 standard drink = 0.6 oz pur e alcohol) occassional OASIS D0700: Social Isolation Answer Da te Recorded Frequency of experiencing loneliness or isolatio n Never 09/04/2023 [facility] Utilities Answer Date Recorded In [...] often do you attend chur ch or orthodoxy services? 1 to 4 times per year 10/04/2023 Do you belong to any clubs o r organizations such as protestant groups, unions, fraternal or athletic groups, or [...] on file Legal Sex Male 6:28 AM PAYMENT POSTER Gender Identity Not on file Sexual Orientation Straight 08/22/2021 9: 23 AM CDT documented as of this encounter Ordered Prescriptions Prescription Sig Dispense Quantity Refills Last Filled Start Date End Date triamcinolone (KENALOG) 0.1 % cream Apply topically 2 (two) times a day as needed for rash 80 g 2 12/03/2023 4 documented in this encounter Progress Notes * Leeanna Dewitt MD - 12/03/2023 9:45 AM CST Images from the original note were not included. DERMATOLOGY CLINIC NOTE Patient Name: Adi Nichols Age: 28 y.o. Date of Office Visit: 12/03/2023 Chief Concern: Rash HPI: Adi Nichols is a 28 y.o. 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 Patient is accompanied by his mother. Today, he reports the following concerns: Around the end of October 2023, patient developed red rash on his R leg which quickly spread to other leg, lower abdomen, and R back. Says the rash was very itchy at onset. He began to use gentle products (unscented laundry detergent, fragrence-free soaps and creams) as well as OTC Cortisone-10. Says itch mostly resolved after a couple of weeks. Rash has faded in color but is still present. Otherwise, he has not noticed any non-healing sores, new/changing moles, or rashes. Other History: Medications and allergies reviewed in chart Past medical, family, and social history reviewed and noncontributory unless noted in HPI. ROS: Constitutional: Negative for fever/chills and malaise/fatigue. Skin: Negative for pruritus, rash, non-healing sores, and new/changing moles. Other ROS per HPI. PHYSICAL EXAM: GENERAL: Well-developed and well-nourished. No acute distress. NEURO: Alert and oriented x3. PSYCH: Appropriate affect. SKIN: A cutaneous exam was performed with close inspection and palpation where indicated and as allowed by the patient of the chest, abdomen, back, right upper, left upper, right lower, left lower extremities. All skin examined was normal with exception of these notable exam findings: Erythematous papules with mild scale on abdomen, lower back, upper thighs Several pink-brown macules on trunk and thighs Dark melanocytic macule with dual pigment network on L lower back; glaze sprayer brown border on L edge of lesion ASSESSMENT AND PLAN: Dermatitis, unspecified Ddx- Pityriasis rosea vs PLC vs atopic dermatitis; low concern for drug reaction - Discussed possible diagnoses with patient, including likely primary inflammatory etiology - Discussed with patient not concerned that rash is dangerous - No indication for biopsy of rash at this time - Start TMC 0.1% cream to AA up to BID PRN until resolved; SER including steroid atrophy, discoloration. Rx sent - Discussed with patient discoloration will slowly improve over time Neoplasm unspecified behavior - Location: L lower back - Dx: Melanocytic macule; r/o atypia - Biopsy done per procedure note below. - Wound care reviewed with patient. - Follow-up per path. Discussed possible treatment options including WLE - Risks and benefits were discussed including, but not limited to, scarring, bleeding, infection, pain, and swelling. PROCEDURE: Shave Biopsy x L lower back DESCRIPTION OF PROCEDURE: Informed consent was obtained, including discussion of risks including bleeding, scarring, infection, and recurrence/persistence. [facility] Protocol Time-Out performed. The lesionals areas were prepped with hibiclens prior to infiltration with 1% lidocaine with epinephrine, 1:100,000 x 1ml. The lesions were biopsied with a Dermablade. Hemostasis was obtained with aluminum chloride and firm pressure. The specimen(s) were placed in formalin and sent for routine histopathological evaluation. There were no complications. The wounds were then dressed with sterile petrolatum and a sterile dressing. Wound care instructions were provided in verbal and written form including a 24-hour contact number in case of emergency. The patient will be notified. RTC pending pathology and Prn Patient was instructed to return should they develop any new, changing and/or worsening lesions, side effects of any recommended treatments, or as needed. Jillian Morrison MD PGY-2 Division of Dermatology December 03, 2023 I have seen and examined the patient. I agree with the findings and plan of care as documented in the resident's note, and I was present for the entire procedure. Leeanna Dewitt MD ENT POSTER documented in this encounter Plan of Treatment Scheduled Procedures Name Priority Associated Diagnoses Date/Ti me COLONOSCOPY Encounter for screening for colorectal cancer in high risk patient Family history of rectal cancer documented as of this encounter Results * Surgical pathology (12/03/2023 12:00 AM PAYMENT POSTER) Tissue (Skin, shave biopsy) 12/03/2023 12/06/2023 7:16 AM PAYMENT POSTER [facility] - 12/07/2023 3:32 PM PAYMENT POSTER EPIC results best viewed via link to PDF [facility] [address] [place] [address] , ??[address] [place] [address] ? [email or web address] Note to Patients: ??This report may contain a detailed description of human tissue sent by a health care provider to the laboratory for pathologic evaluation. ??The content of this report is essential for diagnosis and may provide important critical findings. ??This information may be unfamiliar to patients to review without a medical professional present. ?? It is advised that the patient review this report in the presence of a health care provider who can answer questions and explain the details. FINAL REPORT Patient Information: PATIENT NAME: ??ADI NICHOLS ? SEX: ??M ? : ??1995 (Age: 28) ? Specimen Information: COLLECTED: ??12/03/2023 ? RECEIVED: ??12/06/2023 ? REPORTED: ??12/07/2023 ? Submitting Physician Information: Leeanna Dewitt M.D. [address] [place] [address], [address] ??[address], ? DERMATOPATHOLOGY REPORT RESULTS ?? DIAGNOSIS: SKIN, LEFT LOWER BACK, SHAVE BIOPSY: ? COMPOUND MELANOCYTIC NEVUS exr/isr By this signature, I attest that the above diagnosis is based upon my personal examination of the slides(and/or other material indicated in the diagnosis). Audrey Gonsalez M.D. ?? Report Electronically Reviewed and Signed Out By ??Audrey Gonsalez M.D. 12/07/2023 15:32:41 CLINICAL INFORMATION MELANOCYTICMACULE; R/O ATYPIA. SPECIMEN DATA MICROSCOPIC DESCRIPTION: Enlarged monomorphous melanocytes are arranged as solitary units and nests at the dermo-epidermal junction and as uniform nests, cords and strands within the dermis. (D22.9) GROSS DESCRIPTION: Received in a formalin-containing bottle is a superficial fragment of brown and finely scaling skin measuring 0.4 by 0.4 by 0.1 cm. The surgical margin is inked blue. The specimen is sectioned into 2 pieces and submitted entirely in a single cassette. Due to shrinkage, measurements may be different than those at time of procedure. jesús/dxv ICD-9 A; ZSD.407 ? Clerical Data A; 90200 The characteristics of special, immunohistochemical, and immunofluorescence stains and in-situ hybridization tests performed by the [facility] were deemed acceptable in ongoing manufacturing quality engineer measures and in compliance with regulations drawn from the Clinical Laboratory Improvement Act du0924 (CLIA '88). Control reactions for all stains performed were deemed adequate and appropriate by a pathologist prior to evaluation of patient tissue. Some diagnoses were rendered with the assistance of laboratory-developed tests utilizing analyte-specific reagents; the performance characteristic of these tests were determined by [facility] and are not cleared or approved by the [place] Food an Drug administration. Laboratory developed test may only be performed in a facility that is certified by the [facility] as a high-complexity laboratory under CLIA '88. These tests are used for clinical purposes and are not investigational. Leeanna Dewitt MD LAB PATHOLOGY ORDERABLES Final Result DERMATOPATHOLOGY CENTER [facility] [place] [address] documented in this encounter Visit Diagnoses Diagnosis Neoplasm of unspecified behavior of bone, soft tissue, and skin- Primary Dermatitis, unspecified Neoplasm of unspecified behavior of bone, soft tissue, and skin documented in this encounter Care Teams Electronic Masking System Operator Relationship Specialty Start Date End Date Adi Nick MD [address] [place] [address] PCP - General Family Practice 05/31/23 04/25/24 Amber Montesinos RN Office Asst Transplant 11/17/19 Jil Duncan MD Consulting Physician Infectious Diseases 01/10/20 Anita Gillespie MD Medical Oncologist/Admission Specialist Medical Oncology 10/07/20 Tabitha Hurley MD [address] [place] [address] Consulting Physician Rheumatology 10/22/21 Massiel Gastelum MD [address] [place] [address] Consulting Physician Otolaryngology 08/27/22 documented as of this encounter
--- OUTSIDE RECORDS SUMMARY | 2024-10-28 06:05 | XMS_ITS | Encounter Summary ---
Author Organization [facility] Healthcare Address [address] [place] [address] Care Team Providers Care Timber Packer Name Role Phone Amber Montesinos RN Unavailable [phone] Jil Duncan MD Unavailable [phone] Anita Gillespie MD Unavailable [phone] Tabitha Hurley MD Unavailable [phone] Massiel Gastelum MD Unavailable [phone] Beka Nick MD Primary Care Provider [phone] Encounter Details Date Type Department Care Team (Latest Contact Info) Description 02/07/2024 9:58 AM CDT - 02/07/2024 11:59 PM CDT Hospital Encounter [address] [id number] Discharge Disposition: Discharge to home or self care Social History Tobacco Use Types Packs/Day Years Used Date Smoking Tobacco: Never Smokeless Tobacco: Current Chew Alcohol Use Standard Drinks/Week Comments Yes 0 (1 standard drink = 0.6 oz pur e alcohol) occassional OASIS D0700: Social Isolation Answer Da te Recorded Frequency of experiencing loneliness or isolatio n Never 09/04/2023 [facility] Utilities Answer Date Recorded In the [...] often do you attend chur ch or uatsdin services? 1 to 4 times per year 10/04/2023 Do you belong to any clubs o r organizations such as advent groups, unions, fraternal or athletic groups, or [...] slept in a halfway (including now)? No 10/04/2023 Personal Safety Answer Date Recorded Have you ever been in or are you currently in a harmful physical or emotional relationship or is someone making you feel afraid or unsafe? Denies 10/03/2023 Sex and Gender Information Value Date Recorded Sex Assigned at Not on file Legal Sex Male 6:28 AM COOK JELLY Gender Identity Not on file Sexual Orientation Straight 08/22/2021 9: 23 AM CDT documented as of this encounter Medications at Time of Discharge tacrolimus 0.5 mg immediate-releas e capsuleIndicatio ns:Prevention of Liver Transplant Rejection Take 1 capsule (0.5 mg total) by mouth every other day 45 capsule 3 01/03/2024 5 letermovir (PREVYMIS) 480 mg tabletIndication s:Prophylaxis, Medical Take 1 tablet (480 mg total) by mouth daily 30 tablet 5 09/28/2023 4 levoFLOXacin (LEVAQUIN) 500 mg tablet Take 1 tablet (500 mg total) by mouth daily for 21 days 21 tablet 02/07/2024 4 furosemide (LASIX) 20 mg tablet Take 2 tablets (40 mg total) by mouth daily 60 tablet 1 12/02/2023 4 [facility] heparin lock flush, porcine,Indicati ons:LINE CARE [...] mouth daily 60 tablet 1 12/02/2023 4 traZODone (DESYREL) 50 mg tabletIndication s:insomnia [...] or self care documented in this encounter Miscellaneous Notes * Result Encounter Note - Danae Frazier CMA - 02/07/2024 11:59 PM CDT Pt has been informed of his/her results and the Drs Recommendations. Via and sent a portal message . documented in this encounter Plan of Treatment Scheduled Procedures Name Priority Associated Diagnoses Date/Ti me COLONOSCOPY Encounter for screening for colorectal cancer in high risk patient Family history of rectal cancer documented as of this encounter Procedures Procedure Name Priority Date/Time Associated Diagnosis Comments AEROBIC AND ANAEROBIC CULTURE AND GRAM STAIN Routine 02/07/2024 9:58 AM CDT documented in this encounter Results * (ABNORMAL) Aerobic and anaerobic culture and gram stain Wound Sinus, maxillary, right (02/07/2024 9:58 AM CDT) Direct Specimen Exam Stain: Moderate polymorphonuclear leukocytes seen. Abundant Gram Positive Cocci Report Final Report: Abundant Staphylococcus aureus Methicillin susceptible (MSSA) by penicillin binding protein 2a (PBP2a) testing. (.) [facility] Organism STAPHYLOCOCCUS AUREUS [facility] Wound (Sinus, maxillary, right) 02/07/2024 9:58 AM CDT 02/07/2024 3:51 PM CDT Narrative [facility] - 02/12/2024 3:07 PM CDT Specimen received on an ESwab. Testing performed by [facility] Laboratory ([phone]) Specimens submitted from normally sterile body sites will have all bacterial morphotypes identified. Specimens that contain grossly mixed ellie and/or are from body sites that are not normally sterile will be examined for Staphylococcus aureus, Pseudomonas aeruginosa, beta-hemolytic strep, vancomycin-resistant Enterococcus, Bacteroides, Parabacteroides, Clostridium perfringens and fungus. If any of these are isolated, the organism will be reported. Current interpretive data was last revised on 2019. Organism Antibiotic Method Susceptibility Staphylococcus aureus Vancomycin INTERPRETATION Susceptible Staphylococcus aureus Trimethoprim with Sulfamethoxazole INTERPRETATION Susceptible Staphylococcus aureus Linezolid INTERPRETATION Susceptible Staphylococcus aureus Doxycycline INTERPRETATION Susceptible Staphylococcus aureus Clindamycin INTERPRETATION Susceptible Staphylococcus aureus Erythromycin INTERPRETATION Resistant Staphylococcus aureus Oxacillin INTERPRETATION Susceptible Staphylococcus aureus Cefazolin INTERPRETATION Susceptible Staphylococcus aureus Ceftriaxone INTERPRETATION Susceptible Massiel Gasetlum MD LAB MICROBIOLOGY - GEN ERAL ORDERABLES Final Result [facility] Department [place] [address] documented in this encounter Visit Diagnoses Not on filedocumented in this encounter Care Teams Timber Packer Relationship Specialty Start Date End Date Beka Nick MD [address] [place] [address] PCP - General Family Practice 05/31/23 04/25/24 Amber Montesinos, SHAILESH Front Desk Specialist Transplant 11/17/19 Jil Duncan MD Consulting Physician Infectious Diseases 01/10/20 Anita Gillespie MD Medical Oncologist/Electrical Electronics Engineer Medical Oncology 10/07/20 Tabitha Hurley MD [address] [facility] [address] [place], [place] [id number] Consulting Physician Rheumatology 10/22/21 Massiel Gastelum MD [address] [place] [address] Consulting Physician Otolaryngology 08/27/22 documented as of this encounter
--- OUTSIDE RECORDS SUMMARY | 2024-10-28 06:05 | XMS_ITS | Encounter Summary ---
Author Organization [facility] Address [address] [place] [address] Phone Care Team Providers Care Fast Food Team Member Name Role Phone Amber Montesinos RN Unavailable [phone] Jil Duncan MD Unavailable [phone] Anita Gillespie MD Unavailable [phone] Tabitha Hurley MD Unavailable [phone] Massiel Gastelum MD Unavailable [phone] Beka Nick MD Primary Care Provider [phone] Encounter Details Date Type Department Care Team (Late st Contact Info) Description 12/03/2023 Orders Only [facility] Infectious Diseases [address] [place] [address] [address] [place] [address] Lisandra Auguste, AIDEN [address] [place] [address] Social History Tobacco Use Types Packs/Day Years Used Date Smoking Tobacco: Never Smokeless Tobacco: Current Chew Alcohol Use Standard Drinks/Week Comments Yes 0 (1 standard drink = 0.6 oz pur e alcohol) occassional OASIS D0700: Social Isolation Answer Da te Recorded Frequency of experiencing loneliness or isolatio n Never 09/04/2023 [facility] Utilities Answer Date Recorded In the [...] any clubs o r organizations such as zoroastrian groups, unions, fraternal or athletic groups, or [...] in a long term (including now)? No 10/04/2023 Personal Safety Answer Date Recorded Have you ever been in or are you currently in a harmful physical or emotional relationship or is someone making you feel afraid or unsafe? Denies 10/03/2023 Sex and Gender Information Value Date Recorded Sex Assigned at Not on file Legal Sex Male 6:28 AM SUPERVISOR FILM PROCESSING Gender Identity Not on file Sexual Orientation Straight 08/22/2021 9: 23 AM CDT documented as of this encounter Ordered Prescriptions Prescription Sig Dispense Quantity Refills Last Filled Start Date End Date doxycycline (VIBRAMYCIN) 100 mg capsule Take 1 tablet/capsu le (100 mg total) by mouth every 12 (twelve) hours for 7 days 14 tablet/capsule 12/03/2023 12/10/2023 amoxicillin-clavul anate (AUGMENTIN) 875-125 mg per tablet Take 1 tablet by mouth every 12 (twelve) hours for 7 days 14 tablet 12/03/2023 12/10/2023 documented in this encounter Plan of Treatment Scheduled Procedures Name Priority Associated Diagnoses Date/Ti tx COLONOSCOPY Encounter for screening for colorectal cancer in high risk patient Family history of rectal cancer documented as of this encounter Visit Diagnoses Not on filedocumented in this encounter Care Teams Fast Food Team Member Relationship Specialty Start Date End Date Beka Nick MD [address] [place] [address] PCP - General Family Practice 05/31/23 04/25/24 Amber Montesinos, SHAILESH Plug And Mold Finisher Transplant 11/17/19 Jil Duncan MD Consulting Physician Infectious Diseases 01/10/20 Anita Gillespie MD Medical Oncologist/Multilith Operator Medical Oncology 10/07/20 Tabitha Hurley MD [address] [facility] [address] [place], [place] [id number] Consulting Physician Rheumatology 10/22/21 Massiel Gastelum MD [address] [place], [place] [address] Consulting Physician Otolaryngology 08/27/22 documented as of this encounter
--- OUTSIDE RECORDS SUMMARY | 2024-10-28 06:05 | XMS_ITS | Encounter Summary ---
Author Organization [facility] Address [address] [place] [address] Care Team Providers Care Consumer Educator Name Role Phone Amber Montesinos RN Unavailable [phone] Jil Duncan MD Unavailable [phone] Anita Gillespie MD Unavailable [phone] Tabitha Hurley MD Unavailable [phone] Massiel Gastelum MD Unavailable [phone] Beka Nick MD Primary Care Provider [phone] Encounter Details Date Type Department Care Team (Latest Contact Info) Description 11/29/2023 10:06 AM HOTEL OPERATIONS MANAGER - 11/29/2023 11:59 PM HOTEL OPERATIONS MANAGER Hospital Encounter [facility] [place] [address] 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 Utilities Answer Date Recorded In the past 12 months has [employer], gas, oil, or water company threatened to [...] often do you attend chur ch or jehovah's witness services? 1 to 4 times per year [...] slept in a penitentiary (including now)? No 10/04/2023 Personal Safety Answer Date Recorded Have you ever been in or are you currently in a harmful physical or emotional relationship or is someone making you feel afraid or unsafe? Denies 10/03/2023 Sex and Gender Information Value Date Recorded Sex Assigned at Not on file Legal Sex Male 6:28 AM HOTEL OPERATIONS MANAGER Gender Identity Not on file Sexual Orientation Straight 08/22/2021 9: 23 AM CDT documented as of this encounter Medications at Time of Discharge letermovir (PREVYMIS) 480 mg tabletIndication s:Prophylaxis, Medical Take 1 tablet (480 mg total) by mouth daily 30 tablet 5 09/28/2023 4 furosemide (LASIX) 20 mg tablet Take 2 tablets (40 mg total) by mouth daily 60 tablet 1 11/12/2023 4 [facility] heparin lock flush, porcine,Indicati ons:LINE CARE [...] mouth daily 60 tablet 1 11/12/2023 4 tacrolimus 0.5 mg immediate-releas e capsuleIndicatio ns:Prevention of Liver Transplant Rejection Take 1 capsule (0.5 mg total) by mouth every other day 11/09/2023 4 ursodioL (ACTIGALL) 300 mg capsuleIndicatio ns:Cholelithiasi [...] VIEWS Schedule Routine, Read Routine (OP Routine) 11/29/2023 10:15 AM HOTEL OPERATIONS MANAGER 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HCC) documented in this encounter Results * X-ray chest 2 views (11/29/2023 10:15 AM HOTEL OPERATIONS MANAGER) Anatomical Region Laterality Modality Body, Chest N/A Computed Radiogr aphy 11/29/2023 11:0 9 AM HOTEL OPERATIONS MANAGER Impressions 11/29/2023 11:09 AM HOTEL OPERATIONS MANAGER Comparison to 10/12/2023. Previously seen moderate left-sided [...] Dl Cabrera M.D. Narrative 11/29/2023 11:09 AM HOTEL OPERATIONS MANAGER EXAMINATION: 2 view chest radiograph Procedure Note [...] signed by: Dl Cabrera M.D. 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 documented in this encounter Care Teams Consumer Educator Relationship Specialty Start Date End Date Beka Nick MD [address] [place] [address] PCP - General Family Practice 05/31/23 04/25/24 Amber Montesinos, SHAILESH Inspector And Clipper Transplant 11/17/19 Jil Duncan MD Consulting Physician Infectious Diseases 01/10/20 Anita Gillespie MD Medical Oncologist/Hosiery Looper Medical Oncology 10/07/20 Tabitha Hurley MD [address] [place] [address] Consulting Physician Rheumatology 10/22/21 Massiel Gastelum MD [address] [place] [address] Consulting Physician Otolaryngology 08/27/22 documented as of this encounter
--- OUTSIDE RECORDS SUMMARY | 2024-10-28 06:05 | XMS_ITS | Encounter Summary ---
Author Organization [facility] Address [address] [place] [address] Phone Care Team Providers Care Waste Water Plant Operator Name Role Phone Amber Montesinos RN Unavailable [phone] Jil Duncan MD Unavailable [phone] Anita Gillespie MD Unavailable [phone] Tabitha Hurley MD Unavailable [phone] Massiel Gastelum MD Unavailable [phone] Beka Nick MD Primary Care Provider [phone] Encounter Details Date Type Department Care Team (Late st Contact Info) Description 11/11/2023 Telephone [facility] Oncology [facility] Advanced Medicine 7th [place] [address] [place] [address] Yulisa Bhakta, SHAILESH Social History Tobacco Use Types Packs/Day Years Used Date Smoking Tobacco: Never Smokeless Tobacco: Current Chew Alcohol Use Standard Drinks/Week Comments Yes 0 (1 standard drink = 0.6 oz pur e alcohol) occassional OASIS D0700: Social Isolation Answer Da te Recorded Frequency of experiencing loneliness or isolatio n Never 09/04/2023 [facility] Utilities Answer Date Recorded In the [...] on file Legal Sex Male 6:28 AM BUNCH MAKER HAND Gender Identity Not on file Sexual Orientation Straight 08/22/2021 9: 23 AM CDT documented as of this encounter Miscellaneous Notes * Telephone Encounter - Yulisa Bhakta RN - 11/11/2023 4:03 PM CST Called pts mother today regarding missed derm appointment. Reprts was unable to make that date due to having IVIG infusion rep out to house for teaching with new subq IVIG pump at same time and unable to change that appointment. Mother reports per pt, he has recently switched bar soap and trying to determine if that is the cause of the spots on thighs. With continued use of the new soap, pt started having same areas of redness move upwards to lower abdomen. Changed to a sensitive skin soap 2 days ago, wants to give in the weekend to see if discontinuing his recently changed soap makes a difference. H MAKER HAND documented in this encounter Plan of Treatment Scheduled Procedures Name Priority Associated Diagnoses Date/Ti me COLONOSCOPY Encounter for screening for colorectal cancer in high risk patient Family history of rectal cancer documented as of this encounter Visit Diagnoses Not on filedocumented in this encounter Care Teams Waste Water Plant Operator Relationship Specialty Start Date End Date Beka Nick MD [address] [place] [address] PCP - General Family Practice 05/31/23 04/25/24 Amber Montesinos, SHAILESH Talent Development Director Transplant 11/17/19 Jil Duncan MD Consulting Physician Infectious Diseases 01/10/20 Anita Gillespie MD Medical Oncologist/Envelope Adjuster Medical Oncology 10/07/20 Tabitha Hurley MD [address] [facility] 14 [place] [address] Consulting Physician Rheumatology 10/22/21 Massiel Gastelum MD [address] [place] [address] Consulting Physician Otolaryngology 08/27/22 documented as of this encounter
--- OUTSIDE RECORDS SUMMARY | 2024-10-28 06:05 | XMS_ITS | Encounter Summary ---
Author Organization [facility] Address [address] [facility] [address] [place] [address] Phone Care Team Providers Care Tin Whiz Machine Operator Name Role Phone Amber Montesinos RN Unavailable [phone] Jil Duncan MD Unavailable [phone] Anita Gillespie MD Unavailable [phone] Tabitha Hurley MD Unavailable [phone] Massiel Gastelum MD Unavailable [phone] Adi Nick MD Primary Care Provider [phone] Encounter Details Date Type Department Care Team (Late st Contact Info) Description 12/06/2023 Orders Only [facility] [address] [place] [address] Leeanna Dewitt MD [address] [facility] [address] [place], [place] [id number] Neoplasm of unspecified behavior of bone, soft tissue, and skin Social History Tobacco Use Types Packs/Day Years [...] slept in a custodial (including now)? No 10/04/2023 Personal Safety Answer Date Recorded Have you ever been in or are you currently in a harmful physical or emotional relationship or is someone making you feel afraid or unsafe? Denies 10/03/2023 Sex and Gender Information Value Date Recorded Sex Assigned at Not on file Legal Sex Male 6:28 AM MECHANICAL ASSEMBLER Gender Identity Not on file Sexual Orientation Straight 08/22/2021 9: 23 AM CDT documented as of this encounter Plan of Treatment Scheduled Procedures Name Priority Associated Diagnoses Date/Ti me COLONOSCOPY Encounter for screening for colorectal cancer in high risk patient Family history of rectal cancer documented as of this encounter Procedures Procedure Name Priority Date/Time Associated Diagnosis Comments SURGICAL PATHOLOGY Routine 12/03/2023 12 :00 AM MECHANICAL ASSEMBLER Neoplasm of unspecified behavior of bone, soft tissue, and skin documented in this encounter Results * Surgical pathology (12/03/2023 12:00 AM MECHANICAL ASSEMBLER) Tissue (Skin, shave biopsy) 12/03/2023 12/06/2023 7:16 AM MECHANICAL ASSEMBLER [facility] - 12/07/2023 3:32 PM MECHANICAL ASSEMBLER [facility] results best viewed via link to PDF [facility] [address] [place] [address] , ??[address] [place] [address] ? [email or web address] Note to Patients: ??This report may contain [...] ? Submitting Physician Information: Leeanna Dewitt M.D. [address] [place] [address], [address] ??[id number], ? DERMATOPATHOLOGY REPORT RESULTS ?? DIAGNOSIS: SKIN, [...] ICD-9 A; ZSD.407 ? Clerical Data A; 82465 The characteristics of special, immunohistochemical, and immunofluorescence stains and in-situ hybridization tests performed by the [facility]at[facility] were deemed acceptable in ongoing water quality control engineer measures and in compliance with regulations drawn from the Clinical Laboratory Improvement Act kh4073 (CLIA '88). Control reactions for all stains performed were deemed adequate and appropriate by a pathologist prior to evaluation of patient tissue. Some diagnoses were rendered with the assistance of laboratory-developed tests utilizing analyte-specific reagents; the performance characteristic of these tests were determined by [facility] and are not cleared or approved by the [place] Food an Drug administration. Laboratory developed test may only be performed in a facility that is certified by the [facility] as a high-complexity laboratory under CLIA '88. These tests are used for clinical purposes and are not investigational. Leeanna Dewitt MD LAB PATHOLOGY ORDERABLES Final Result [facility] [address] [place] [address] documented in this encounter Visit Diagnoses Diagnosis Neoplasm of unspecified behavior of bone, soft tissue, and skin documented in this encounter Care Teams Tin Whiz Machine Operator Relationship Specialty Start Date End Date Adi Nick MD [address] [place] [address] PCP - General Family Practice 05/31/23 04/25/24 Amber Montesinos, SHAILESH Security Screener Transplant 11/17/19 Jil Duncan MD Consulting Physician Infectious Diseases 01/10/20 Anita Gillespie MD Medical Oncologist/Resource Room Teacher Medical Oncology 10/07/20 Tabitha Hurley MD [address] [place] [address] Consulting Physician Rheumatology 10/22/21 Massiel Gastelum MD [address] [place] [address] Consulting Physician Otolaryngology 08/27/22 documented as of this encounter
--- OUTSIDE RECORDS SUMMARY | 2024-10-28 06:05 | XMS_ITS | Encounter Summary ---
Author Organization [facility] Address [address] [place] [address] Phone Care Team Providers Care Motion Picture Photographer Name Role Phone Amber Montesinos RN Unavailable [phone] Jil Duncan MD Unavailable [phone] Anita Gillespie MD Unavailable [phone] Tabihta Hurley MD Unavailable [phone] Massiel Gastelum MD Unavailable [phone] Beak Nick MD Primary Care Provider [phone] Reason for Visit * Reason Onset Date Comments Patient Assistance 12/13/2023 Encounter Details Date Type Department Care Team (Late st Contact Info) Description 12/13/2023 Telephone [facility] Infectious Diseases [address] [place] [address] Lili Nolasco RN Patient Assistance Social History Tobacco Use Types Packs/Day Years Used Date Smoking Tobacco: Never Smokeless Tobacco: Current Chew Alcohol Use Standard Drinks/Week Comments Yes 0 (1 standard drink = 0.6 oz pur e alcohol) occassional OASIS D0700: Social Isolation Answer Da te Recorded Frequency of experiencing loneliness or isolatio n Never 09/04/2023 [facility] Utilities Answer Date Recorded In the past 12 months has [employer], [employer], or [employer] threatened to shut off services in your [...] slept in a prison (including now)? No 10/04/2023 Personal Safety Answer Date Recorded Have you ever been in or are you currently in a harmful physical or emotional relationship or is someone making you feel afraid or unsafe? Denies 10/03/2023 Sex and Gender Information Value Date Recorded Sex Assigned at Not on file Legal Sex Male 6:28 AM PROOF TECHNICIAN HELPER Gender Identity Not on file Sexual Orientation Straight 08/22/2021 9: 23 AM CDT documented as of this encounter Miscellaneous Notes * Telephone Encounter - Lili Nolasco RN - 12/13/2023 11:16 AM PROOF TECHNICIAN HELPER [employer] patient access called today regarding patient assistance for Prev[employer]. They are needing: Family size and income called to them (tried patient with no response). This info can be called to: [phone] 2. Script faxed to: [phone] 3. They are faxing application that needed provider signature. Thanks F TECHNICIAN HELPER documented in this encounter Plan of Treatment Scheduled Procedures Name Priority Associated Diagnoses Date/Ti me COLONOSCOPY Encounter for screening for colorectal cancer in high risk patient Family history of rectal cancer documented as of this encounter Visit Diagnoses Not on filedocumented in this encounter Care Teams Motion Picture Photographer Relationship Specialty Start Date End Date Beka Nick MD [address] [place] [address] PCP - General Family Practice 05/31/23 04/25/24 Amber Montesinos, SHAILESH Commercial Credit Analyst Transplant 11/17/19 Jil Duncan MD Consulting Physician Infectious Diseases 01/10/20 Anita Gillespie MD Medical Oncologist/Docket Specialist Medical Oncology 10/07/20 Tabitha Hurley MD [address] [facility] [address] [place] [address] Consulting Physician Rheumatology 10/22/21 Massiel Gastelum MD [address] [place] [address] Consulting Physician Otolaryngology 08/27/22 documented as of this encounter
--- OUTSIDE RECORDS SUMMARY | 2024-10-28 06:05 | XMS_ITS | Encounter Summary ---
Author Organization [facility] Address [address] [place] [address] Phone Care Team Providers Care [employer] Special Ed Teacher Name Role Phone Amber Montesinos RN Unavailable [phone] Jil Duncan MD Unavailable [phone] Anita Gillespie MD Unavailable [phone] Tabitha Hurley MD Unavailable [phone] Massiel Gastelum MD Unavailable [phone] Beka Nick MD Primary Care Provider [phone] Encounter Details Date Type Department Care Team (Late st Contact Info) Description 11/04/2023 Orders Only [facility] ENT [address] [facility] [address] [place] [address] Massiel Gastelum MD [address] [facility] [address] [place] [address] Social History Tobacco Use Types Packs/Day Years Used Date Smoking Tobacco: Never Smokeless Tobacco: Current Chew Alcohol Use Standard Drinks/Week Comments Yes 0 (1 standard drink = 0.6 oz pur e alcohol) occassional OASIS D0700: Social Isolation Answer Da te Recorded Frequency of experiencing loneliness or isolatio n Never 09/04/2023 [facility] Utilities Answer Date Recorded In [...] often do you attend chur ch or nondenominational services? 1 to 4 times per year 10/04/2023 Do you belong to any clubs o r organizations such as congregation groups, unions, fraternal or athletic groups, or [...] slept in a half-way (including now)? No 10/04/2023 Personal Safety Answer Date Recorded Have you ever been in or are you currently in a harmful physical or emotional relationship or is someone making you feel afraid or unsafe? Denies 10/03/2023 Sex and Gender Information Value Date Recorded Sex Assigned at Not on file Legal Sex Male 6:28 AM SECURITY DIRECTOR Gender Identity Not on file Sexual Orientation Straight 08/22/2021 9: 23 AM CDT documented as of this encounter Plan of Treatment Scheduled Procedures Name Priority Associated Diagnoses Date/Ti me COLONOSCOPY Encounter for screening for colorectal cancer in high risk patient Family history of rectal cancer documented as of this encounter Visit Diagnoses Not on filedocumented in this encounter Care Teams [employer] School Special Ed Teacher Relationship Specialty Start Date End Date Beka Nick MD [address] [place] [address] PCP - General Family Practice 05/31/23 04/25/24 Amber Montesinos, SHAILESH Director Hospice Operations Transplant 11/17/19 Jil Duncan MD Consulting Physician Infectious Diseases 01/10/20 Anita Gillespie MD Medical Oncologist/Telecom Network Manager Medical Oncology 10/07/20 Tabitha Hurley MD [address] [place] [address] Consulting Physician Rheumatology 10/22/21 Massiel Gastelum MD [address] [place] [address] Consulting Physician Otolaryngology 08/27/22 documented as of this encounter
--- OUTSIDE RECORDS SUMMARY | 2024-10-28 06:05 | XMS_ITS | Encounter Summary ---
Author Organization [facility] Healthcare Address [address] [place] [address] Care Team Providers Care Information Assurance Officer Name Role Phone Amber Montesinos RN Unavailable [phone] Jil Duncan MD Unavailable [phone] Anita Gillespie MD Unavailable [phone] Tabitha Hurley MD Unavailable [phone] Massiel Gastelum MD Unavailable [phone] Beka Nick MD Primary Care Provider [phone] Encounter Details Date Type Department Care Team (Late st Contact Info) Description 11/30/2023 Orders Only [facility] Health Information Management [address] [place] [address] Scanning, Provider Social History Tobacco Use Types Packs/Day Years Used Date Smoking Tobacco: Never Smokeless Tobacco: Current Chew Alcohol Use Standard Drinks/Week Comments Yes 0 (1 standard drink = 0.6 oz pur e alcohol) occassional OASIS D0700: Social Isolation Answer Da te Recorded Frequency of experiencing loneliness or isolatio n Never 09/04/2023 [facility] Utilities Answer Date Recorded In the [...] How often do you attend chur or islam services? 1 to 4 times [...] on file Legal Sex Male 6:28 AM PATENT LEGAL ASSISTANT Gender Identity Not on file Sexual Orientation Straight 08/22/2021 9: 23 AM CDT documented as of this encounter Plan of Treatment Scheduled Procedures Name Priority Associated Diagnoses Date/Ti me COLONOSCOPY Encounter for screening for colorectal cancer in high risk patient Family history of rectal cancer documented as of this encounter Procedures Procedure Name Priority Date/Time Associated Diagnosis Comments SCAN - LABS 11/30/2023 10:07 PM PATENT LEGAL ASSISTANT documented in this encounter Results * SCAN - LABS (11/30/2023 10:07 PM PATENT LEGAL ASSISTANT) us Provider Scanning Edited Result - Final documented in this encounter Visit Diagnoses Not on filedocumented in this encounter Care Teams Information Assurance Officer Relationship Specialty Start Date End Date Beka Nick MD [address] [place] [address] PCP - General Family Practice 05/31/23 04/25/24 Amber Montesinos, SHAILESH Candy Bar Attendant Transplant 11/17/19 Jil Duncan MD Consulting Physician Infectious Diseases 01/10/20 Anita Gillespie MD Medical Oncologist/Brake Lining Maker Medical Oncology 10/07/20 Tabitha Hurley MD [address] [place], [place] [id number] Consulting Physician Rheumatology 10/22/21 Massiel Gastelum MD [address] [place] [address] Consulting Physician Otolaryngology 08/27/22 documented as of this encounter
--- OUTSIDE RECORDS SUMMARY | 2024-10-28 06:05 | XMS_ITS | Encounter Summary ---
Author Organization [facility] Healthcare Address [address] [place] [address] Care Team Providers Care Market Development Manager Name Role Phone Amber Montesinos RN Unavailable [phone] Jil Duncan MD Unavailable [phone] Anita Gillespie MD Unavailable [phone] Tabitha Hurley MD Unavailable [phone] Massiel Gastelum MD Unavailable [phone] Beka Nick MD Primary Care Provider [phone] Encounter Details Date Type Department Care Team (Late st Contact Info) Description 01/04/2024 Orders Only [facility] Health Information Management [address] [place] [address] Scanning, Provider Social History Tobacco Use Types Packs/Day Years Used Date Smoking Tobacco: Never Smokeless Tobacco: Current Chew Alcohol Use Standard Drinks/Week Comments Yes 0 (1 standard drink = 0.6 oz pur e alcohol) occassional OASIS D0700: Social Isolation Answer Da te Recorded Frequency of experiencing loneliness or isolatio n Never 09/04/2023 [facility] Utilities Answer Date Recorded In the [...] How often do you attend chur or hoahaoism services? 1 to 4 times [...] on file Legal Sex Male 6:28 AM HEALTH AND SAFETY INSPECTOR Gender Identity Not on file Sexual Orientation Straight 08/22/2021 9: 23 AM CDT documented as of this encounter Plan of Treatment Scheduled Procedures Name Priority Associated Diagnoses Date/Ti me COLONOSCOPY Encounter for screening for colorectal cancer in high risk patient Family history of rectal cancer documented as of this encounter Procedures Procedure Name Priority Date/Time Associated Diagnosis Comments SCAN - LABS 01/04/2024 6:51 AM HEALTH AND SAFETY INSPECTOR documented in this encounter Results * SCAN - LABS (01/04/2024 6:51 AM HEALTH AND SAFETY INSPECTOR) us Provider Scanning Final Result documented in this encounter Visit Diagnoses Not on filedocumented in this encounter Care Teams Market Development Manager Relationship Specialty Start Date End Date Beka Nick MD [address] [place] [address] PCP - General Family Practice 05/31/23 04/25/24 Amber Montesinos, SHAILESH End User Consultant Transplant 11/17/19 Jil Duncan MD Consulting Physician Infectious Diseases 01/10/20 Anita Gillespie MD Medical Oncologist/Health Unit Clerk Medical Oncology 10/07/20 Tabitha Hurley MD [address] [place] [address] Consulting Physician Rheumatology 10/22/21 Massiel Gastelum MD [address] [place] [address] Consulting Physician Otolaryngology 08/27/22 documented as of this encounter
--- OUTSIDE RECORDS SUMMARY | 2024-10-28 06:05 | XMS_ITS | Encounter Summary ---
Author Organization [facility] Healthcare Address [address] [place] [address] Care Team Providers Care Live Truck Technician Name Role Phone Amber Montesinos RN Unavailable [phone] Jil Duncan MD Unavailable [phone] Anita Gillespie MD Unavailable [phone] Tabitha Hurley MD Unavailable [phone] Massiel Gastelum MD Unavailable [phone] Beka Nick MD Primary Care Provider [phone] Encounter Details Date Type Department Care Team (Latest Contact Info) Description 01/05/2024 10:[address] [facility] - 01/05/2024 11:[address] [facility] Hospital Encounter [facility] [place] [address] Subacute cough Discharge Disposition: Discharge to home or self care Social History Tobacco Use Types Packs/Day Years Used Date Smoking Tobacco: Never Smokeless Tobacco: Current Chew Alcohol Use Standard Drinks/Week Comments Yes 0 (1 standard drink = 0.6 oz pur e alcohol) occassional OASIS D0700: Social Isolation Answer Da te Recorded Frequency of experiencing loneliness or isolatio n Never 09/04/2023 [facility] Utilities Answer Date Recorded In the [...] on file Legal Sex Male 6:[address] Gender Identity Not on file Sexual Orientation [...] mouth daily 60 tablet 1 12/02/2023 4 [facility] heparin lock flush, porcine,Indicati ons:LINE [...] mouth daily 60 tablet 1 12/02/2023 4 triamcinolone (KENALOG) 0.1 % cream Apply [...] VIEWS Schedule Routine, Read Routine (OP Routine) 01/05/2024 10:[address] [facility] Subacute cough documented in this encounter Results * X-ray chest 2 views (01/05/2024 10:[address] [facility]) Anatomical Region Laterality Modality Body, Chest N/A Computed Radiogr aphy 01/05/2024 11:[address] [facility] Impressions 01/05/2024 11:[address] [facility] The current study is compared with the [...] Darcy Jimenez M.D. Narrative 01/05/2024 11:[address] [facility] EXAMINATION: 2 view chest radiograph Procedure Note [...] abdomen. Electronically signed by: Darcy Jimenez M.D. us Lisandra Auguste MUSHROOM CUTTER IMG XR PROCEDURES Final R esult documented in this encounter Visit Diagnoses Diagnosis Subacute cough documented in this encounter Care Teams Live Truck Technician Relationship Specialty Start Date End Date Beka Nick MD [address] [place] [address] PCP - General Family Practice 05/31/23 04/25/24 Amber Montesinos, SHAILESH Director Emergency Transplant 11/17/19 Jil Duncan MD Consulting Physician Infectious Diseases 01/10/20 Anita Gillespie MD Medical Oncologist/Correctional Medicine Physician Medical Oncology 10/07/20 Tabitha Hruley MD [address] [place] [address] Consulting Physician Rheumatology 10/22/21 Massiel Gastelum MD [address] [place] [address] Consulting Physician Otolaryngology 08/27/22 documented as of this encounter
--- OUTSIDE RECORDS SUMMARY | 2024-10-28 06:05 | XMS_ITS | Encounter Summary ---
Author Organization [facility] Healthcare Address [address] [place] [address] Care Team Providers Care Teaching Music Lessons Name Role Phone Amber Montesinos RN Unavailable [phone] Jil Duncan MD Unavailable [phone] Anita Gillespie MD Unavailable [phone] Tabitha Hurley MD Unavailable [phone] Massiel Gastelum MD Unavailable [phone] Beka Nick MD Primary Care Provider [phone] Encounter Details Date Type Department Care Team (Late st Contact Info) Description 11/09/2023 Documentation [facility] Transplant Liver [address] [facility] [phone] [place] [address] Amber Montesinos, RN Social History Tobacco Use Types Packs/Day Years Used Date Smoking Tobacco: Never Smokeless Tobacco: Current Chew Alcohol Use Standard Drinks/Week Comments Yes 0 (1 standard drink = 0.6 oz pur e alcohol) occassional OASIS D0700: Social Isolation Answer Da te Recorded Frequency of experiencing loneliness or isolatio n Never 09/04/2023 [facility] Utilities Answer Date Recorded In the past 12 months has [employer], gas, oil, or water company threatened to [...] often do you attend chur ch or synagogue services? 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 Confirmed tacrolimus level was a true trough for current dosing. Patient still taking letermovir per ID. No missed doses of tacrolimus to report. No other reported changes at home. Labs reviewed with Madelaine Martínez NP with transplant hepatology. Planto increase patient tacrolimus dose back up to taking 0.5mg q48 hours. Patient should repeat labs next week. Sent update to pt via [employer]. Asked mom to let us know when they need [facility] script. ERN MECHANIC documented in this encounter Plan of [...] capsule (0.5 mg total) by mouth every third day Reorder 10/14/2023 11/09/2023 documented as of this encounter Care Teams Teaching Music Lessons Relationship Specialty Start Date End Date Beka Nick MD [address] [place] [address] PCP - General Family Practice 05/31/23 04/25/24 Amber Montesinos, SHAILESH Petrographer Transplant 11/17/19 Jil Duncan MD Consulting Physician Infectious Diseases 01/10/20 Anita Gillespie MD Medical Oncologist/Cushion Mat Maker Medical Oncology 10/07/20 Tabitha Hurley MD [address] [place] [address] Consulting Physician Rheumatology 10/22/21 Massiel Gastelum MD [address] [place] [address] Consulting Physician Otolaryngology 08/27/22 documented as of this encounter
--- OUTSIDE RECORDS SUMMARY | 2024-10-28 06:05 | XMS_ITS | Encounter Summary ---
Author Organization [facility] Healthcare Address [address] [place] [address] Care Team Providers Care Renovator Machine Operator Name Role Phone Amber Montesinos RN Unavailable [phone] Jil Duncan MD Unavailable [phone] Anita Gillespie MD Unavailable [phone] Tabitha Hurley MD Unavailable [phone] Massiel Gastelum MD Unavailable Beka Nick MD Primary Care Provider [phone] Reason for Referral * Home Health (Routine) - Pending Review Specialty Diagnoses / Procedures Referred By Contac t Referred To Contact Home Health Services / Home Health and Hospice Diagnoses Bacteremia Roxann Craft MD [address] [facility] [address] [place] [address] Phone: tel: fax: [facility] Home Care Services [address] [place] [address] Phone: tel: fax: Referral ID Status Reason Start Date Expiration Date Visits Requested Visits Authorized [id number] Pending Review Specialty Services Required 02/25/2024 03/26/2025 1 1 Question Answer [id number] Home Health and Infusion Primary disciplines requested: Care Home Home Health Services Disease and Medication Management Infusion Services IV Catheter Maintenance (Infusion), Infusion Therapy IV Catheter Types: PICC Line Number of Lumens: 1 IV Catheter Dressing Change Instructions: Evaluate, manage, and change the dressing weekly IV Catheter Flush Care Instructions: Evaluate and manage the IV catheter to maintain patency Infusion Therapy: Antibiotic Therapy How many antibiotic therapies: 1 ABX Medication 1: ANCEF ABX Dose 1: 2 gm ABX Route 1: IV ABX Frequency 1: Q8hr ABX Therapy Duration 1: 6 weeks Physician to follow patient's care (the person listed here will be responsible for signing ongoing orders): Referring Provider Requested Start of Care Date: Other Comment: 02/28 I certify that, based on my findings, the following services are medically necessary skilled home health services: IV Catheter Maintenance I certify that, based on my findings, the following services are medically necessary skilled home infusion services: IV Catheter Maintenance (Infusion), Infusion Therapy I attest that I or another qualified licensed provider saw the patient 90 days prior to or 30 days post admission and this face to face encounter meets the necessary Home Health requirements. The face to face encounter occurred on (date): 02/25/2024 The encounter with the patient was in whole, or in part, for the following medical condition, which is the primary reason for home health care. (List medical condition): Gram positive bacteremia Clinical findings that support the need for home care: Medical condition requiring skilled assessment/education I certify that my clinical findings support patient's homebound status. Homebound criteria met because: Other Comment: IV abx Reason for Visit * Reason Comments Headache * Auth/Cert Specialty Diagnoses / Procedures Referred By Contac t Referred To Contact Diagnoses Pneumonia of left lung due to infectious organism, unspecified part of lung Procedures n/a Referral ID Status Reason Start Date Expiration Date Visits Re quested Visits Authorized [id number] 1 1 Encounter Details Date Type Department Care Team (Latest Contact Info) Description 02/18/2024 5:12 AM CDT - 02/26/2024 2:40 PM CDT Hospital Encounter [address] [id number] Azucena Kang MD [address] [facility] [address] [place] [address] Anita Gillespie MD [address] [facility] [address] [place] [address] La Owens MD [address] [place] [address] Aneclmo Kennedy MD [address] [facility] [address] [place] [address] Guicho Chan MD [address] [place] [address] Roland Grider MD [address] [place] [address] Roxann Craft MD [address] [place] [address] Bacteremia (Primary Dx); Pneumonia of left lung due to infectious organism, unspecified part of lung; Sepsis with acute hypoxic respiratory failure, due to unspecified organism, unspecified whether septic shock present (HCC); Thrombocytopenia (HCC); Hyponatremia; WATSON (acute kidney injury) ([facility]); Shock (CMS/HCC) (HCC) Discharge Disposition: Discharge to home or self care Social History Tobacco Use Types Packs/Day Years Used Date Smoking Tobacco: Never Smokeless Tobacco: Current Chew Alcohol Use Standard Drinks/Week Comments Yes 0 (1 standard drink = 0.6 oz pur e alcohol) occassional OASIS D0700: Social Isolation Answer Da te Recorded Frequency of experiencing loneliness or isolatio n Never 09/04/2023 [facility] Utilities Answer Date Recorded In the past 12 months has e [employer], gas, oil, or water [employer] threatened to shut off services in your [...] often do you attend chur ch or adventist services? 1 to 4 times per year 02/23/2024 Do you belong to any clubs o r organizations such as shinto groups, unions, fraternal or athletic groups, or [...] on file Legal Sex Male 6:28 AM [employer] Gender Identity Not on file Sexual Orientation Straight 08/22/2021 9: 23 AM CDT documented as of this encounter Last Filed Vital Signs Vital Sign Reading Time Taken Comments Blood Pressure 114/62 02/26/2024 8:53 AM CDT Pulse 72 02/26/2024 8:53 AM CDT Temperature 36.4 ??C (97.5 ??F) 02/26/2024 8:53 AM CD T Respiratory Rate 18 02/26/2024 8:53 AM CDT Oxygen Saturation 93% 02/26/2024 8:53 AM CDT Inhaled Oxygen Concentration - - Weight 63 kg (139 lb) 02/25/2024 8:09 PM CDT Height 172.7 cm (5' 7.99 ) 02/20/2024 8:50 PM CD T Body Mass Index 21.14 02/20/2024 8:50 PM CDT documented in this encounter Discharge Summaries * Roxann Craft MD - 02/26/2024 2:40 PM CDT Inpatient Discharge Summary BRIEF OVERVIEW Admitting Provider: Anita Gillespie MD Discharge Provider: No att. providers found Primary Care Physician at Discharge: Beka Nick MD [phone] Admission Date: 02/18/2024 Discharge Date: 02/26/2024 Admission Location: [facility] Problems/Diagnoses: Principal Problem: Bacteremia Active Problems: History of liver transplant (CMS/HCC) (HCC) 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HCC) Chronic pansinusitis Acute respiratory failure with hypoxia (CMS/HCC) ([facility]) Bicytopenia CVID (common variable immunodeficiency) ([facility]) History of pulmonary embolus (PE) Resolved Problems: WATSON (acute kidney injury) ([facility]) DETAILS OF HOSPITAL STAY Presenting Problem/History of Present Illness: 29 y/o M with 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 Subsequently transferred to the floor. Hospital Course: Acute respiratory failure with hypoxia (CMS/HCC) ([facility]) Arrived with 2L oxygen requirement iso shock, PNA, rhinovirus. CT w/ left lower lobe cavitary PNA with left pleural effusion, increased from priors. Pneumonia PCR positive for MSSA. See MSSA bacteremia for antibiotic treatment. LEDs negative. RVP +rhino/enterovirus. Weaned to room air. MSSA Bacteremia Arrived in septic shock requiring low-dose levophed for <24 hours.BC MSSA+ (02/17, 02/18), neg (4), MSSA (02/20), NGTD (02/21), staph capitis (02/22).CVC placed (02/17), removed (02/19).TTE (02/20) no obvious valvular vegetations. PICC line placed(02/24).Plan for total of 6 weeks of treatment with IV cefazolin from 02/22/2024. 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 Now on monthly Cutaquig, last dose 02/13. Thrombocytopenia Most likely secondary to sepsis, bacteremia.Improved 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[facility]) Patient with chronic CMV with multiple resistance patterns. CMV viremia subpopulations w/ heterogenous resistance (h/o ganciclovir, cidofovir, maribavir). Continued on valganciclovir and letermovir during admission. 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 Liver transplant team consulted and followed during admission. History of pulmonary embolus (PE) Remote. No longer on a/c. Chronic pansinusitis Follows w/ ENT as outpatient. Most recently completed outpatient course of levofloxacin -> augmentin. MRSA nares negative. Active Issues Requiring Follow-up: MSSA bacteremia Test Results Pending at Discharge: Pending Labs Order Current Status Blood culture Blood Peripheral In process Blood culture Blood Peripheral In process IgG In process Magnesium In process Phosphorus In process Senior staff review In process Blood culture Blood Preliminary result Blood culture Blood Preliminary result Blood culture Blood Arm, right Preliminary result Blood culture Blood Peripheral Preliminary result Blood culture Blood Peripheral Preliminary result Mold Blood Culture Blood Preliminary result Discharge Details Physical Exam at Discharge: Discharge Condition: stable Pulse: 72 Resp: 18 BP: 114/62 Temp: 36.4 ??C (97.5 ??F) Weight: 63 kg (139 lb) Pertinent Exam Findings at Discharge: Constitutional:NAD, well developed, well nourished Eyes:PERRL, EOMI, anicteric ENT:NCAT, oropharynx normal, moist mucus membranes Lungs:Lungs clear to auscultation Cardiovascular:RRR, normal S1 and S2 GI:Soft, non-tender, non-distended Neurologic:AOx4, speech normal,follows commands Psychiatric:Normal affect and mood I have reviewed the patient's vital signs. Discharge Disposition: Discharge to home or self care Code Status at Discharge: Discharge Instructions: Follow up with medical oncology,ID Other Instructions Ambulatory referral to Home Health Service Line: Home Health and Infusion Primary disciplines requested: Care Home Home Health Services: Disease and Medication Management Infusion Services: IV Catheter Maintenance (Infusion) Infusion Therapy IV Catheter Types: PICC Line Number of Lumens: 1 IV Catheter Dressing Change Instructions: Evaluate, manage, and change the dressing weekly IV Catheter Flush Care Instructions: Evaluate and manage the IV catheter to maintain patency Infusion Therapy: Antibiotic Therapy How many antibiotic therapies: 1 ABX Medication 1: ANCEF ABX Dose 1: 2 gm ABX Route 1: IV ABX Frequency 1: Q8hr ABX Therapy Duration 1: 6 weeks Physician to follow patient's care (the person listed here will be responsible for signing ongoing orders): Referring Provider Requested Start of Care Date: Other Comment: 02/28 I certify that, based on my findings, the following services are medically necessary skilled home health services: IV Catheter Maintenance I certify that, based on my findings, the following services are medically necessary skilled home infusion services: IV Catheter Maintenance (Infusion) Infusion Therapy I attest that I or another qualified licensed provider saw the patient 90 days prior to or 30 days post admission and this face to face encounter meets the necessary Home Health requirements. The face to face encounter occurred on (date): 02/25/2024 The encounter with the patient was in whole, or in part, for the following medical condition, whichis the primary reason for home health care. (List medical condition): Gram positive bacteremia Clinical findings that support the need for home care: Medical condition requiring skilled assessment/education I certify that my clinical findings support patient's homebound status. Homebound criteria met because: Other Comment: IV abx For your home IV medications: [facility] [phone] *Provides home infusion medications and supplies. *Please contact the pharmacy regarding delivery of medication and supplies. [facility] [phone] *Provides nursing, medication teaching, IV line dressing changes, lab draws. *1st visit: Next day, after discharge from hospital *If you have not been contacted within 1 day to schedule a visit, please call the number above. Discharge Medications: Current Medications TAKE these medications predniSONE 10 mg tablet Take 40Mg PO for 3 days, then 30Mg PO for 3 days, then 20Mg PO for 3 days, then 10Mg PO for 3 days. Commonly known as: DELTASONE This medication is very important: It prevents organ rejection. tacrolimus 0.5 mg immediate-release capsule Take 1 capsule (0.5 mg total) by mouth every other day This medication is very important: It prevents organ rejection. valGANciclovir 450 mg tablet Take 2 tablets (900 mg total) by mouth 2 (two) times a day Commonly known as: VALCYTE This medication is very important: It prevents dangerous infection. ceFAZolin 2,000 mg/20 mL syringe Infuse 20 mL (2 g total) into a venous catheter every 8 (eight) hours For: Blood Stream/Endovascular Infection Commonly known as: ANCEF Cutaquig 16.5 % solution Generic drug: immune globulin,gamma(IgG)charly furosemide 20 mg tablet Take 2 tablets (40 mg total) by mouth daily Commonly known as: LASIX guaiFENesin ER 600 mg 12 hr tablet Take 1 tablet (600 mg total) by mouth 2 (two) times a day For: cold symptoms Commonly known as: MUCINEX [facility] heparin lock flush (porcine) Infuse 5 mL (50 Units total) into a venous catheter as needed (LINE CARE) For: LINE CARE letermovir 480 mg tablet Take 1 tablet (480 mg total) by mouth daily Commonly known as: PREVYMIS levoFLOXacin 500 mg tablet Take 1 tablet (500 mg total) by mouth daily for 21 days Commonly known as: LEVAQUIN magnesium oxide 400 mg (241.3 mg elemental magnesium) tablet Take 1 tablet (400 mg total) by mouth 2 (two) times a day for 7 days Take while on foscarnet For: low amount of magnesium in the blood Commonly known as: MAG-OX spironolactone 50 mg tablet Take 2 tablets (100 mg total) by mouth daily Commonly known as: ALDACTONE traZODone 50 mg tablet Take 1 tablet (50 mg total) by mouth nightly Commonly known as: DESYREL triamcinolone 0.1 % cream Apply topically 2 (two) times a day as needed for rash Commonly known as: KENALOG ursodioL 300 mg capsule Take 2 capsules (600 mg total) by mouth daily with dinner Commonly known as: ACTIGALL Outpatient Follow-Up: Future Appointments Date Time Provider Department Center 02/28/2024 2:45 PM SPECIAL PROCEDURE 5 [facility] CV PrRcv [facility] Main 02/29/2024 To Be Determined Sherin Jones RN [place] [facility] None 03/20/2024 10:20 AM Lisandra Auguste, AIDEN ID TABEX 100 [facility] Inf Dis 05/03/2024 6:45 AM LAB, CAM 7 ONC ONC LAB CAM7 [facility] ONC LAB 05/03/2024 7:45 AM Anita Gillespie MD ONC CAM7 [facility] Oncology 07/05/2024 8:00 AM [facility] TXP CAM 12B [facility] GASTRO 08/14/2024 8:20 AM Massiel Gastelum MD OY CLN L20 [facility] Contact Information for Follow-ups [facility] Home Care Services Specialty: Home Health and Hospice [address] [place] [address] Next Steps: Follow up Questions: Service Line: Home Health and Infusion Primary disciplines requested: Care Home Home Health Services: Disease and Medication Management Infusion Services: IV Catheter Maintenance (Infusion) Infusion Therapy IV Catheter Types: PICC Line Number of Lumens: 1 IV Catheter Dressing Change Instructions: Evaluate, manage, and change the dressing weekly IV Catheter Flush Care Instructions: Evaluate and manage the IV catheter to maintain patency Infusion Therapy: Antibiotic Therapy How many antibiotic therapies: 1 ABX Medication 1: ANCEF ABX Dose 1: 2 gm ABX Route 1: IV ABX Frequency 1: Q8hr ABX Therapy Duration 1: 6 weeks Physician to follow patient's care (the person listed here will be responsible for signing ongoing orders): Referring Provider Requested Start of Care Date: Other Comment: 02/28 I certify that, based on my findings, the following services are medically necessary skilled home health services: IV Catheter Maintenance I certify that, based on my findings, the following services are medically necessary skilled home infusion services: IV Catheter Maintenance (Infusion) Infusion Therapy I attest that I or another qualified licensed provider saw the patient 90 days prior to or 30 days post admission and this face to face encounter meets the necessary Home Health requirements. The face to face encounter occurred on (date): 02/25/2024 The encounter with the patient was in whole, or in part, for the following medical condition, whichis the primary reason for home health care. (List medical condition): Gram positive bacteremia Clinical findings that support the need for home care: Medical condition requiring skilled assessment/education I certify that my clinical findings support patient's homebound status. Homebound criteria met because: Other Comment: IV abx Referral Status: Some Visits Scheduled documented in this encounter Discharge Instructions * Discharge Instr - Other Orders* Kristine Julian RN - 02/24/2024 2:02 PM CDT For your home IV medications: [facility] [phone] *Provides home infusion medications and supplies. *Please contact the pharmacy regarding delivery of medication and supplies. [facility] [phone] *Provides nursing, medication teaching, IV line dressing changes, lab draws. *1st visit: Next day, after discharge from hospital *If you have not been contacted within 1 day to schedule a visit, please call the number above. documented in this encounter Medications at Time [...] for 21 days 21 tablet 02/07/2024 4 ceFAZolin (ANCEF) 2,000 mg/20 mL syringeIndicatio ns:Blood Stream/Endovascu lar Infection [The details of the medication are not available because there are pending changes by a home health clinician.] 02/26/2024 4 furosemide (LASIX) 20 mg tablet Take 2 tablets (40 mg total) by mouth daily 60 tablet 1 12/02/2023 4 [facility] heparin lock flush, porcine,Indicati ons:LINE CARE Infuse [...] Refills Last Filled Start Date End Date guaiFENesin ER (MUCINEX) 600 mg 12 hr tabletIndications: Cold Symptoms Take 1 tablet (600 mg total) by mouth 2 (two) times a day 60 tablet 11 02/26/2024 5 ceFAZolin (ANCEF) 2,000 mg/20 mL syringeIndications :Blood Stream/Endovascula r Infection [The details of the medication are not available because there are pending changes by a home health clinician.] 02/26/2024 4 documented in this encounter Discharge Disposition Disposition Code Departure Means Destination Comment s Discharge to home or self care documented in this encounter Progress Notes * Adan Gleason Cae RN - 02/26/2024 9:55 AM CDT Illness Severity/Patient Summary [ ] Following MD: Dr Thao Merino [ ] Diagnosis: bacterial PNA / liver tx patient [ ] Covid +: no [ ] Anticipated DC: 02/25 [ ] Anticipated SOC: 02/28 (delay order on referral) [ ] Medication: cefazolin 2 gram q8 [ ] Delivery to home or room: home [ ] 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 [ ] Type of line/Active LDAs/Wounds and ORDERS: DL PICC [ ] Caregiver (name/phone #): Brooklynn (mom) [phone] [ ] Patient Interview: 02/23 [ ] Patient education: 02/23 [ ] Admin method taught: IVP Situational Awareness/Contingency Planning MARITZA JULIAN [ ] Delivery Address: [address] [place] [id number] [ ] Benefits: [employer] Eff: 07/01/23 Ded: $2,000.00 dollars plan pays 80%, OOP: $5,000.00 dollars planpays 100%, Unlimited Life Max, SNV per auth req. [ ] Concerns: none * Roxann Craft MD - 02/26/2024 7:55 AM CDT Oncology Daily Progress Note Division of Hospital Medicine Name: Beka Lares : 1995 Today's Date: February 26, 2024 Age: 29 y.o. male Admission: 02/18/2024 Bed: [id number] LOS: 8 days Subjective Chief complaint: bacteremia Interval History No acute overnight events Seen and examined at bedside. Reports feeling well. Persistent cough. Denies any shortness a breath, chest pain, fever, chills. Labs/micro reviewed Brief plan: Plan for discharge on IV abx Objective Scheduled Meds PRN Meds Infusions ceFAZolin, 2,000 mg, intravenous, Q8H PIPPA enoxaparin, 40 mg, subcutaneous, Daily-2100 guaiFENesin ER, 600 mg, oral, BID letermovir, 480 mg, oral, Daily lidocaine, 1-2 mL, subcutaneous, Once sodium chloride 0.9%, 0.5-20 mL, intra-catheter, Q8H PIPPA sodium chloride 0.9%, 5-10 mL, intra-catheter, Q12H PIPPA tacrolimus, 0.5 mg, oral, Q48H ursodioL, 600 mg, oral, Daily with dinner valGANciclovir, 900 mg, oral, BID acetaminophen, 1,000 mg, oral, Q6H PRN sodium chloride 0.9%, 30 mL, intravenous, PRN dextromethorphan-guaiFENesin, 10 mL, oral, QID PRN ipratropium-albuteroL, 3 mL, nebulization, Q6H PRN (RT) magnesium sulfate, 4 g, intravenous, Q4H PRN magnesium sulfate, 6 g, intravenous, Q4H PRN ondansetron, 4 mg, intravenous, Q6H PRN perflutren protein-a (OPTISON) 3 mL in sodium chloride 0.9% 8 mL syringe, 1-8 mL, intravenous, Oncein imaging potassium chloride ER, 40 mEq, oral, Q2H PRN sodium chloride 0.9%, 0.5-20 mL, intra-catheter, PRN sodium chloride 0.9%, 5-20 mL, intra-catheter, PRN sodium chloride 0.9%, 30 mL/hr, intravenous, Continuous PRN sodium phosphate - potassium phosphate, 500 mg, oral, Daily PRN sodium chloride 0.9%, 30 mL/hr Vitals Most Recent Vitals: T 36.7 ??C (98.1 ??F), HR 82, BP 105/51, RR 18, SpO2 92 %. 24hr Min/Max: Temp Min: 36.5 ??C (97.7 ??F) Max: 36.7 ??C (98.1 ??F) Pulse Min: 81 Max: 86 BP Min: 102/58 Max: 114/65 Resp Min: 16 Max: 19 SpO2 Min: 92 % Max: 98 % Intake/Output Summary (Last 24 hours) at 02/26/2024 0755 Last data filed at 02/25/2024 2020 Gross per 24 hour Intake 40 ml Output 500 ml Net -460 ml Physical Exam Constitutional:NAD, well developed, well nourished Eyes:PERRL, EOMI, anicteric ENT:NCAT, oropharynx normal, moist mucus membranes Lungs:Lungs clear to auscultation Cardiovascular:RRR, normal S1 and S2 GI:Soft, non-tender, non-distended Neurologic:AOx4, speech normal,follows commands Psychiatric:Normal affect and mood I have reviewed the patient's vital signs. Lines, Drains, Airways PICC Single Lumen 02/25/24 Non-tunneled Power Right Upper arm;Basilic (Active) Labs/Diagnostic Review CBC: Recent Labs Lab Units 02/26/24 0354 WBC K/cumm 13.2* HEMOGLOBIN g/dL 10.6* HEMATOCRIT % 28.3* MCV fL 101.4* MCH pg 38.0* MCHC g/dL 37.5* RDW CV % 20.4* RDWSD fL 68.5* MPV fL 12.3 NEUTROS ABS K/cumm 2.2 LYMPHS PCT % 69.0 CMP: Recent Labs Lab Units 02/26/24 0354 SODIUM mmol/L 138 POTASSIUM PLASMA mmol/L 4.1 CO2 mmol/L 23 BUN SERUM mg/dL 17 GLUCOSE mg/dL 131 CREATININE mg/dL 0.75* CALCIUM mg/dL 7.5* CHLORIDE mmol/L 112* ALBUMIN g/dL 2.1* AST Units/L 38 ALT Units/L 9 ALK PHOS Units/L 182* BILIRUBIN TOTAL mg/dL 2.2* TOTAL PROTEIN g/dL 4.1* ANIONGAP mmol/L 3 LDH: Recent Labs Lab Units 02/22/24 0230 LACTATE DEHYDROGENASE (LDH) Units/L 491* INR - Uric Acid:- (Labs above are the most recent result obtained in the last 24 hours unless otherwise specified. For additional labs/trends, see Epic.) I have reviewed the laboratory results. Imaging Review XR Chest PA Lateral 2 Views Result Date: 02/24/2024 The current study is compared with the prior radiograph dated 02/19/2024 Interval removal of right internal jugular approach central venous catheter. Surgical clips overlie right upper quadrant and left upper quadrant. No pneumothorax. Slight interval increase in size in small bilateral pleural effu sions. Patchy retrocardiac opacities are consistent with multifocal, cavitary pneumonia, which is better characterized on prior chest CT. Stable cardiomegaly. Dictated by: Marlene Berry MD The radiology attending physician has personally reviewed this study, and had reviewed and/or edited this written report and agrees with it. Electronically signed by: Magdi Knutson M.D. I have independently reviewed and interpreted imaging. Assessment/Plan Acute respiratory failure with hypoxia (CMS/HCC) (HCC) Assessment & Plan Now resolved, on room air Arrived with 2L oxygen requirement iso shock, PNA, rhinovirus. CT w/ left lower lobe cavitary PNA with left pleural effusion, increased from priors LEDs negative RVP +rhino/enterovirus Antibiotics as above for bacteremia Bacteremia Assessment & Plan Arrived in septic shock requiring low-dose levophed for <24 hours. BC MSSA+ (02/17, 02/18), neg (02/19), MSSA (02/20), NGTD (02/21), staph capitis (02/22). CVC placed (02/17), removed (02/19).TTE (02/20) no obvious valvular vegetations Continue IV cefazolin with plan for total of 6 weeks from 02/22/2024 PICC line placed(02/24) CVID (common variable immunodeficiency) (HCC) Assessment & Plan Secondary to liver transplant. Now on monthly Cutaquig, last dose 02/13. Med onc c/s. Thrombocytopenia Assessment & Plan TCP is new this admission. Most likely secondary to sepsis, bacteremia. Now improving Cytomegalovirus (CMV) viremia ([facility]/HCC) ([facility]) Assessment & Plan Patient with chronic CMV with multiple resistance patterns. CMV viremia subpopulations w/ heterogenous resistance (h/o ganciclovir, cidofovir, maribavir) Transplant ID consulted, plan to cont valganciclovir and letermovir appreciate ID recs History of liver transplant ([facility]) ([facility]) Assessment & Plan Pt w/ autoimmune hepatitis, s/p OLT 03/1999 c/b PTLD and now has CVID (on IVIG) tacrolimus (0.5mg every other day); check tacro level and adjust tacro per daily troughs hold home lasix and spironolactone iso recent shock, ongoing bacteremia liver transplant team following cont ursodiol History of pulmonary embolus (PE) Assessment & Plan Remote. No longer on a/c. Chronic pansinusitis Assessment & Plan Follows w/ ENT as outpatient. Most recently completed outpatient course of levofloxacin -> augmentin. Now w/ MSSA bacteremia, sinus source possible MRSA nares negative antibiotics: see #Bacteremia Code status : Full Code Diet : Adult Diet Regular PT/OT Dispo Rec : PT Recommendation/Plan: Home independently / Supplementary Attestation My total encounter time on this service date was 40 minutes which was spent performing a [id number] encounter and personally completing the provider-level activities documented in the note. This includes time spent prior to the visit and after the visit in direct care of the patient. This time does not include time spent in any separately reportable services. Roxann Craft MD * Kristine Hernandez, RD - 02/25/2024 1:59 PM CDT Nutrition Screen Note Pt. Screened for nutritional assessment secondary to LOS Past Medical History: Diagnosis Date Cancer (CMS/HCC) [...] BIOPSY LYMPH NODE SUPERFICIAL LEFT N/A 10/07/2021 Anthropometrics Weight: 63.5 kg (140 lb) Admission Weight : 70.7 kg Weight Change: 0.00 kg (0.00 lbs) IBW/kg (Calculated) : 69.8 kg Height: 172.7 cm (5' 7.99 ) Weight in (lb) to have BMI = 25: 164 BMI (Calculated): 21.3 Dietary Orders (From admission, onward) Start Ordered 02/25/24 0942 Adult Diet Regular Diet effective now Question: ([facility]) Diet type Answer: Regular 02/25/24 0941 Assessment / Impression: Pt was screened due to a LOS. Pt was not available at time of visit. Per joint runner the pt ate 100% of breakfast (906 calories, 29 gm protein). Pt has no wounds or edema documented. Pt's weight appears relatively stable with some slight weight gain. Will follow up with pt. Kristine Hernandez * Roxann Craft MD - 02/25/2024 8:07 AM CDT Oncology Daily Progress Note Division of Hospital Medicine Name: Beka Lares : 1995 Today's Date: February 25, 2024 Age: 29 y.o. male Admission: 02/18/2024 Bed: [id number] LOS: 7 days Subjective Chief complaint: Bacteremia Interval History No acute events overnight Seen and examined at bedside. Reports feeling much better. Persistent cough now able to cough up sputum. Denies any shortness a breath, chest pain, fever, chills. Labs/micro reviewed: WBC 11.7, platelets 99. Blood cultures from 02/24/2024 with no growth to date.Blood culture from 02/23/2024 growing Staphylococcus capitis from 1/2 bottles possible contaminant. Brief plan: Continue IV cefazolin for total of 6 weeks from 02/22/2024 Place PICC line Objective Scheduled Meds PRN Meds Infusions ceFAZolin, 2,000 mg, intravenous, Q8H PIPPA enoxaparin, 40 mg, subcutaneous, Daily-2100 guaiFENesin ER, 600 mg, oral, BID letermovir, 480 mg, oral, Daily sodium chloride 0.9%, 0.5-20 mL, intra-catheter, Q8H PIPPA tacrolimus, 0.5 mg, oral, Q48H ursodioL, 600 mg, oral, Daily with dinner valGANciclovir, 900 mg, oral, BID acetaminophen, 1,000 mg, oral, Q6H PRN sodium chloride 0.9%, 30 mL, intravenous, PRN dextromethorphan-guaiFENesin, 10 mL, oral, QID PRN ipratropium-albuteroL, 3 mL, nebulization, Q6H PRN (RT) magnesium sulfate, 4 g, intravenous, Q4H PRN magnesium sulfate, 6 g, intravenous, Q4H PRN ondansetron, 4 mg, intravenous, Q6H PRN perflutren protein-a (OPTISON) 3 mL in sodium chloride 0.9% 8 mL syringe, 1-8 mL, intravenous, Oncein imaging potassium chloride ER, 40 mEq, oral, Q2H PRN sodium chloride 0.9%, 0.5-20 mL, intra-catheter, PRN sodium chloride 0.9%, 30 mL/hr, intravenous, Continuous PRN sodium phosphate - potassium phosphate, 500 mg, oral, Daily PRN sodium chloride 0.9%, 30 mL/hr Vitals Most Recent Vitals: T 36.7 ??C (98.1 ??F), HR 85, BP 104/54, RR 18, SpO2 93 %. 24hr Min/Max: Temp Min: 36.6 ??C (97.9 ??F) Max: 36.8 ??C (98.3 ??F) Pulse Min: 79 Max: 90 BP Min: 104/54 Max: 115/66 Resp Min: 17 Max: 20 SpO2 Min: 93 % Max: 97 % Intake/Output Summary (Last 24 hours) at 02/25/2024 0808 Last data filed at 02/24/20242121 Gross per 24 hour Intake 130 ml Output 250 ml Net -120 ml Physical Exam Constitutional:NAD, well developed, well nourished Eyes:PERRL, EOMI, anicteric ENT:NCAT, oropharynx normal, moist mucus membranes Lungs:Crackles left lung base Cardiovascular:RRR, normal S1 and S2 GI:Soft, non-tender, non-distended Extremities: Trace edema Neurologic:AOx4, CNII-XII intact, normal strength and sensation Psychiatric:Normal affect and mood I have reviewed the patient's vital signs. Lines, Drains, Airways Peripheral IV 02/18/24 20 G Anterior;Distal;Left;Upper Arm (Active) Labs/Diagnostic Review CBC: Recent Labs Lab Units 02/25/24 0406 02/24/24 0358 WBC K/cumm 11.7* 9.8 HEMOGLOBIN g/dL 11.2* 10.7* HEMATOCRIT % 29.6* 28.6* MCV fL 99.0* 99.3* MCH pg 37.5* 37.2* MCHC g/dL 37.8* 37.4* RDW CV % 19.2* 18.7* RDWSD fL 63.3* 63.4* MPV fL 12.3 13.4* NEUTROS ABS K/cumm -- 4.3 LYMPHS PCT % -- 33.9 CMP: Recent Labs Lab Units 02/25/24 0406 SODIUM mmol/L 139 POTASSIUM PLASMA mmol/L 5.0* CO2 mmol/L 24 BUN SERUM mg/dL 17 GLUCOSE mg/dL 82 CREATININE mg/dL 0.71* CALCIUM mg/dL 7.5* CHLORIDE mmol/L 110 ALBUMIN g/dL 2.1* AST Units/L 50 ALT Units/L 14 ALK PHOS Units/L 173* BILIRUBIN TOTAL mg/dL 2.7* TOTAL PROTEIN g/dL 4.2* ANIONGAP mmol/L 5 LDH: Recent Labs Lab Units 02/22/24 0230 LACTATE DEHYDROGENASE (LDH) Units/L 491* INR - Uric Acid:- (Labs above are the most recent result obtained in the last 24 hours unless otherwise specified. For additional labs/trends, see Epic.) I have reviewed the laboratory results. Imaging Review XR Chest PA Lateral 2 Views Result Date: 02/24/2024 The current study is compared with the prior radiograph dated 02/19/2024 Interval removal of right internal jugular approach central venous catheter. Surgical clips overlie right upper quadrant and left upper quadrant. No pneumothorax. Slight interval increase in size in small bilateral pleural effu sions. Patchy retrocardiac opacities are consistent with multifocal, cavitary pneumonia, which is better characterized on prior chest CT. Stable cardiomegaly. Dictated by: Marlene Berry MD The radiology attending physician has personally reviewed this study, and had reviewed and/or edited this written report and agrees with it. Electronically signed by: Magdi Knutson M.D. I have independently reviewed and interpreted imaging. Assessment/Plan Acute respiratory failure with hypoxia (CMS/HCC) (HCC) Assessment & Plan Now resolved, on room air Arrived with 2L oxygen requirement iso shock, PNA, rhinovirus. CT w/ left lower lobe cavitary PNA with left pleural effusion, increased from priors LEDs negative RVP +rhino/enterovirus Antibiotics as above for bacteremia Bacteremia Assessment & Plan Arrived in septic shock requiring low-dose levophed for <24 hours. BC MSSA+ (02/17, 02/18), neg (02/19), MSSA (02/20), NGTD (02/21), staph capitis (02/22). CVC placed (02/17), removed (02/19).TTE (02/20) no obvious valvular vegetations Continue IV cefazolin with plan for total of 6 weeks from 02/22/2024 Vascular consulted for PICC line placement CVID (common variable immunodeficiency) ([facility]) Assessment & Plan Secondary to liver transplant. Now on monthly Cutaquig, last dose 02/13. Med onc c/s. Bicytopenia Assessment & Plan Hgb baseline 10s-12s. Transferred to floor w/ 11.9. No signs of bleeding. Hgb goal 7.0, supportive transfusions, maintain type/screen. TCP is new this admission, baseline normal, now between 70-94. Most likely secondary to sepsis, bacteremia. Plt goal 10, or 50 if bleeding. 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 CMV viremia subpopulations w/ heterogenous resistance (h/o ganciclovir, cidofovir, maribavir) Transplant ID consulted, plan to cont valganciclovir and letermovir appreciate ID recs, assistance History of liver transplant ([facility]) ([facility]) Assessment & Plan Pt w/ autoimmune hepatitis, s/p OLT 03/1999 c/b PTLD and now has CVID (on IVIG) tacrolimus (0.5mg every other day); check tacro level and adjust tacro per daily troughs hold home lasix and spironolactone iso recent shock, ongoing bacteremia liver transplant team following cont ursodiol History of pulmonary embolus (PE) Assessment & Plan Remote. No longer on a/c. Chronic pansinusitis Assessment & Plan Follows w/ ENT as outpatient. Most recently completed outpatient course of levofloxacin -> augmentin. Now w/ MSSA bacteremia, sinus source possible MRSA nares negative antibiotics: see #Bacteremia Code status : Full Code Diet : NPO Diet PT/OT Dispo Rec : PT Recommendation/Plan: Home independently / Supplementary Attestation My total encounter time on this service date was 40 minutes which was spent performing a [id number] encounter and personally completing the provider-level activities documented in the note. This includes time spent prior to the visit and after the visit in direct care of the patient. This time does not include time spent in any separately reportable services. Roxann Craft MD * Roxann Craft MD - 02/24/2024 7:42 AM CDT Oncology Daily Progress Note Division of Hospital Medicine Name: Beka Lares : 1995 Today's Date: February 24, 2024 Age: 29 y.o. male Admission: 02/18/2024 Bed: [id number] LOS: 6 days Subjective Chief complaint: Bacteremia Interval History No acute overnight events Seen and examined at bedside. Persistent cough. Denies any shortness a breath, chest pain, palpitations, fever or chills, abdominal pain, nausea vomiting, urinary complaints. Afebrile with stable hemodynamics Lab/micro: Normal WBC, blood cultures from 01/22 growing Staphylococcus species from 11/02 bottles Brief plan: Repeat blood cultures Obtain VIDYA IP consult for drainage of pleural effusions Continue IV cefazolin pending further data and clinical course If blood cultures from 02/21 turns out to be coagulase-negative Staph then plan to postpone VIDYA and pleural fluid drainage Objective Scheduled Meds PRN Meds Infusions ceFAZolin, 2,000 mg, intravenous, Q8H PIPPA enoxaparin, 40 mg, subcutaneous, Daily-2100 guaiFENesin ER, 600 mg, oral, BID letermovir, 480 mg, oral, Daily sodium chloride 0.9%, 0.5-20 mL, intra-catheter, Q8H PIPPA tacrolimus, 0.5 mg, oral, Q48H ursodioL, 600 mg, oral, Daily with dinner valGANciclovir, 900 mg, oral, BID acetaminophen, 1,000 mg, oral, Q6H PRN sodium chloride 0.9%, 30 mL, intravenous, PRN dextromethorphan-guaiFENesin, 10 mL, oral, QID PRN ipratropium-albuteroL, 3 mL, nebulization, Q6H PRN (RT) magnesium sulfate, 4 g, intravenous, Q4H PRN magnesium sulfate, 6 g, intravenous, Q4H PRN ondansetron, 4 mg, intravenous, Q6H PRN perflutren protein-a (OPTISON) 3 mL in sodium chloride 0.9% 8 mL syringe, 1-8 mL, intravenous, Oncein imaging potassium chloride ER, 40 mEq, oral, Q2H PRN sodium chloride 0.9%, 0.5-20 mL, intra-catheter, PRN sodium chloride 0.9%, 30 mL/hr, intravenous, Continuous PRN sodium phosphate - potassium phosphate, 500 mg, oral, Daily PRN sodium chloride 0.9%, 30 mL/hr Vitals Most Recent Vitals: T 36.7 ??C (98 ??F), HR 94, BP 108/55, RR 19, SpO2 93 %. 24hr Min/Max: Temp Min: 36.4 ??C (97.5 ??F) Max: 36.7 ??C (98 ??F) Pulse Min: 72 Max: 94 BP Min: 106/59 Max: 110/57 Resp Min: 17 Max: 19 SpO2 Min: 93 % Max: 97 % Intake/Output Summary (Last 24 hours) at 02/24/2024 0742 Last data filed at 02/23/2024 2100 Gross per 24 hour Intake 20 ml Output 600 ml Net -580 ml Physical Exam Constitutional:NAD, well developed, well nourished Eyes:PERRL, EOMI, anicteric ENT:NCAT, oropharynx normal, moist mucus membranes Lungs:Clear Cardiovascular:RRR, normal S1 and S2 GI:Soft, non-tender, non-distended Extremities: Trace edema Neurologic:AOx4, CNII-XII intact, normal strength and sensation Psychiatric:Normal affect and mood I have reviewed the patient's vital signs. Lines, Drains, Airways Peripheral IV 02/18/24 20 G Anterior;Distal;Left;Upper Arm (Active) Labs/Diagnostic Review CBC: Recent Labs Lab Units 02/24/24 0358 WBC K/cumm 9.8 HEMOGLOBIN g/dL 10.7* HEMATOCRIT % 28.6* MCV fL 99.3* MCH pg 37.2* MCHC g/dL 37.4* RDW CV % 18.7* RDWSD fL 63.4* MPV fL 13.4* NEUTROS ABS K/cumm 4.3 LYMPHS PCT % 33.9 CMP: Recent Labs Lab Units 02/24/24 0358 SODIUM mmol/L 139 POTASSIUM PLASMA mmol/L 4.0 CO2 mmol/L 25 BUN SERUM mg/dL 23 GLUCOSE mg/dL 135 CREATININE mg/dL 0.81 CALCIUM mg/dL 7.5* CHLORIDE mmol/L 109 ALBUMIN g/dL 2.2* AST Units/L 48 ALT Units/L 12 ALK PHOS Units/L 171* BILIRUBIN TOTAL mg/dL 2.9* TOTAL PROTEIN g/dL 4.4* ANIONGAP mmol/L 5 LDH: Recent Labs Lab Units 02/22/24 0230 LACTATE DEHYDROGENASE (LDH) Units/L 491* INR - Uric Acid:- (Labs above are the most recent result obtained in the last 24 hours unless otherwise specified. For additional labs/trends, see Epic.) I have reviewed the laboratory results. Imaging Review No results found. Assessment/Plan Acute respiratory failure with hypoxia (CMS/HCC) (HCC) Assessment & Plan Now resolved, on room air Arrived with 2L oxygen requirement iso shock, PNA, rhinovirus. CT w/ left lower lobe cavitary PNA with left pleural effusion, increased from priors LEDs negative RVP +rhino/enterovirus Antibiotics as above for bacteremia Bacteremia Assessment & Plan Arrived in septic shock requiring low-dose levophed for <24 hours. BC MSSA+ (02/17, 02/18), neg (02/19), MSSA (02/20), NGTD (02/21), coagulase negative staph species (02/22). CVC placed (02/17), removed (02/19).TTE (02/20) no obvious valvular vegetations Continue IV cefazolin Rest of the plan as above, if blood cultures from 02/21 turns out to be coagulase-negative Staph then plan to postpone VIDYA and pleural fluid drainage CVID (common variable immunodeficiency) (HCC) Assessment & Plan Secondary to liver transplant. Now on monthly Cutaquig, last dose 02/13. Med onc c/s. Bicytopenia Assessment & Plan Hgb baseline 10s-12s. Transferred to floor w/ 11.9. No signs of bleeding. Hgb goal 7.0, supportive transfusions, maintain type/screen. TCP is new this admission, baseline normal, now between 70-94. Most likely secondary to sepsis, bacteremia. Plt goal 10, or 50 if bleeding. 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[facility]) Assessment & Plan Patient with chronic CMV with multiple resistance patterns. CMV viremia subpopulations w/ heterogenous resistance (h/o ganciclovir, cidofovir, maribavir) Transplant ID consulted, plan to cont valganciclovir and letermovir appreciate ID recs, assistance History of liver transplant (CMS/HCC) ([facility]) Assessment & Plan Pt w/ autoimmune hepatitis, s/p OLT 03/1999 c/b PTLD and now has CVID (on IVIG) tacrolimus (0.5mg every other day); check tacro level and adjust tacro per daily troughs hold home lasix and spironolactone iso recent shock, ongoing bacteremia liver transplant team following cont ursodiol History of pulmonary embolus (PE) Assessment & Plan Remote. No longer on a/c. Chronic pansinusitis Assessment & Plan Follows w/ ENT as outpatient. Most recently completed outpatient course of levofloxacin -> augmentin. Now w/ MSSA bacteremia, sinus source possible MRSA nares negative antibiotics: see #Bacteremia Code status : Full Code Diet : Adult Diet Regular PT/OT Dispo Rec : PT Recommendation/Plan: Home independently / Supplementary Attestation My total encounter time on this service date was 40 minutes which was spent performing a [id number] encounter and personally completing the provider-level activities documented in the note. This includes time spent prior to the visit and after the visit in direct care of the patient. This time does not include time spent in any separately reportable services. Roxann Craft MD * Roxann Craft MD - 02/23/2024 8:17 AM CDT Oncology Daily Progress Note Division of Hospital Medicine Name: Beka Lares : 1995 Today's Date: February 23, 2024 Age: 29 y.o. male Admission: 02/18/2024 Bed: [id number] LOS: 5 days Subjective Chief complaint: Bacteremia Interval History No acute overnight events Seen and examined at bedside. Reports breathing is better. Edema involving bilateral upper and lower extremities improved.Denies any fevers, chills. Remains on room air. Labs/microbiology reviewed. WBC 13.9, t-bili 4.3, platelets 60, blood cultures from 02/21 negative to date. Brief plan: Repeat blood cultures, continue current IV antibiotics, Lasix 40 mg IV once Objective Scheduled Meds PRN Meds Infusions ceFAZolin, 2,000 mg, intravenous, Q8H PIPPA enoxaparin, 40 mg, subcutaneous, Daily-2100 guaiFENesin ER, 600 mg, oral, BID letermovir, 480 mg, oral, Daily sodium chloride 0.9%, 0.5-20 mL, intra-catheter, Q8H PIPPA tacrolimus, 0.5 mg, oral, Q48H ursodioL, 600 mg, oral, Daily with dinner valGANciclovir, 900 mg, oral, BID acetaminophen, 1,000 mg, oral, Q6H PRN sodium chloride 0.9%, 30 mL, intravenous, PRN dextromethorphan-guaiFENesin, 10 mL, oral, QID PRN ipratropium-albuteroL, 3 mL, nebulization, Q6H PRN (RT) magnesium sulfate, 4 g, intravenous, Q4H PRN magnesium sulfate, 6 g, intravenous, Q4H PRN ondansetron, 4 mg, intravenous, Q6H PRN perflutren protein-a (OPTISON) 3 mL in sodium chloride 0.9% 8 mL syringe, 1-8 mL, intravenous, Oncein imaging potassium chloride ER, 40 mEq, oral, Q2H PRN sodium chloride 0.9%, 0.5-20 mL, intra-catheter, PRN sodium chloride 0.9%, 30 mL/hr, intravenous, Continuous PRN sodium phosphate - potassium phosphate, 500 mg, oral, Daily PRN sodium chloride 0.9%, 30 mL/hr Vitals Most Recent Vitals: T 36.9 ??C (98.4 ??F), HR 93, BP 109/52, RR 18, SpO2 95 %. 24hr Min/Max: Temp Min: 36.6 ??C (97.9 ??F) Max: 37.2 ??C (98.9 ??F) Pulse Min: 93 Max: 104 BP Min: 109/52 Max: 122/63 Resp Min: 18 Max: 24 SpO2 Min: 92 % Max: 95 % Intake/Output Summary (Last 24 hours) at 02/23/2024 0817 Last data filed at 02/23/2024 0418 Gross per 24 hour Intake 700 ml Output 1350 ml Net -650 ml Physical Exam Constitutional:NAD, well developed, well nourished Eyes:PERRL, EOMI, anicteric ENT:NCAT, oropharynx normal, moist mucus membranes Lungs:Crackles right lung base Cardiovascular:RRR, normal S1 and S2 GI:Soft, non-tender, non-distended Extremities: Trace edema Neurologic:AOx4, CNII-XII intact, normal strength and sensation Psychiatric:Normal affect and mood I have reviewed the patient's vital signs. Lines, Drains, Airways Peripheral IV 02/18/24 20 G Anterior;Distal;Left;Upper Arm (Active) Labs/Diagnostic Review CBC: Recent Labs Lab Units 02/23/24 0509 WBC K/cumm 13.9* HEMOGLOBIN g/dL 10.7* HEMATOCRIT % 28.9* MCV fL 99.0* MCH pg 36.6* MCHC g/dL 37.0* RDW CV % 17.8* RDWSD fL 61.8* MPV fL 13.8* NEUTROS ABS K/cumm 5.0 LYMPHS PCT % 42.4 CMP: Recent Labs Lab Units 02/23/24 0509 SODIUM mmol/L 135 POTASSIUM PLASMA mmol/L 4.7 CO2 mmol/L 23 BUN SERUM mg/dL 21 GLUCOSE mg/dL 107 CREATININE mg/dL 0.83 CALCIUM mg/dL 7.6* CHLORIDE mmol/L 106 ALBUMIN g/dL 2.2* AST Units/L 53* ALT Units/L 13 ALK PHOS Units/L 167* BILIRUBIN TOTAL mg/dL 4.3* TOTAL PROTEIN g/dL 4.2* ANIONGAP mmol/L 6 LDH: Recent Labs Lab Units 02/22/24 0230 LACTATE DEHYDROGENASE (LDH) Units/L 491* INR 1.47 Uric Acid:3.0 (Labs above are the most recent result obtained in the last 24 hours unless otherwise specified. For additional labs/trends, see Epic.) I have reviewed the laboratory results. Imaging Review No results found. Assessment/Plan Acute respiratory failure with hypoxia (CMS/HCC) (HCC) Assessment & Plan Now resolved, on room air Arrived with 2L oxygen requirement iso shock, PNA, rhinovirus. CT w/ left lower lobe cavitary PNA with left pleural effusion, increased from priors LEDs negative RVP +rhino/enterovirus Antibiotics as above for bacteremia Bacteremia Assessment & Plan Arrived in septic shock requiring low-dose levophed for <24 hours. BCx 02/17 and 02/18 BC +MSSA /, source likely PNA versus sinusitis with workup pending s/p Azithro, 02/18 changed Zosyn to Cefazolin and discontinued Linezolid as d/w ID ID consulted, currently on Zosyn/Cefazolin pending culture clearance (s/p linezolid, vanc, cefepime, flagyl, azithro) BC 02/19-, BC 02/20 growing staph aureus from 1/2 bottles,BC 02/21 NGTD Repeat blood cultures today TTE with no obvious valvular vegetations CVID (common variable immunodeficiency) ([facility]) Assessment & Plan Secondary to liver transplant. Now on monthly Cutaquig, last dose 02/13. Med onc c/s. Bicytopenia Assessment & Plan Hgb baseline 10s-12s. Transferred to floor w/ 11.9. No signs of bleeding. Hgb goal 7.0, supportive transfusions, maintain type/screen. TCP is new this admission, baseline normal, now between 70-94. Most likely secondary to sepsis, bacteremia. Plt goal 10, or 50 if bleeding. 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 CMV viremia subpopulations w/ heterogenous resistance (h/o ganciclovir, cidofovir, maribavir) Transplant ID consulted, plan to cont valganciclovir and letermovir appreciate ID recs, assistance History of liver transplant ([facility]) ([facility]) Assessment & Plan Pt w/ autoimmune hepatitis, s/p OLT 03/1999 c/b PTLD and now has CVID (on IVIG) tacrolimus (0.5mg every other day); check tacro level and adjust tacro per daily troughs hold home lasix and spironolactone iso recent shock, ongoing bacteremia liver transplant team following cont ursodiol History of pulmonary embolus (PE) Assessment & Plan Remote. No longer on a/c. Chronic pansinusitis Assessment & Plan Follows w/ ENT as outpatient. Most recently completed outpatient course of levofloxacin -> augmentin. Now w/ MSSA bacteremia, sinus source possible MRSA nares negative antibiotics: see #Bacteremia Generalized edema Assessment & Plan IV Lasix 40 mg x 1, continue p.r.n. Code status : Full Code Diet : Adult Diet Regular PT/OT Dispo Rec : PT Recommendation/Plan: Home independently / Supplementary Attestation My total encounter time on this service date was 35 minutes which was spent performing a xctk-pr-lyha encounter and personally completing the provider-level activities documented in the note. This includes time spent prior to the visit and after the visit in direct care of the patient. This time does not include time spent in any separately reportable services. Roxann Craft MD * Roxann Craft MD - 02/22/2024 8:57 AM CDT Oncology Daily Progress Note Division of Hospital Medicine Name: Beka Lares : 1995 Today's Date: February 22, 2024 Age: 29 y.o. male Admission: 02/18/2024 Bed: [id number] LOS: 4 days Subjective Chief complaint: Bacteremia Interval History No acute overnight events Patient seen and examined at bedside. Reports generalized swelling. Takes Lasix 40 mg daily at homewhich has been on hold. Denies any other complaints. Denies any shortness a breath, chest pain, fever or chills. Lab/micro/imaging reviewed. T bili 4.1, WBC 13.9, blood cultures from 02/20 growing Gram-positive cocci in clusters from 1/2 bottles Brief plan: Daily blood cultures, continue current IV antibiotics, give Lasix 40 mg IV once Objective Scheduled Meds PRN Meds Infusions ceFAZolin, 2,000 mg, intravenous, Q8H PIPPA enoxaparin, 40 mg, subcutaneous, Daily-2100 guaiFENesin ER, 600 mg, oral, BID letermovir, 480 mg, oral, Daily sodium chloride 0.9%, 0.5-20 mL, intra-catheter, Q8H PIPPA tacrolimus, 0.5 mg, oral, Q48H ursodioL, 600 mg, oral, Daily with dinner valGANciclovir, 900 mg, oral, BID acetaminophen, 1,000 mg, oral, Q6H PRN sodium chloride 0.9%, 30 mL, intravenous, PRN magnesium sulfate, 4 g, intravenous, Q4H PRN magnesium sulfate, 6 g, intravenous, Q4H PRN ondansetron, 4 mg, intravenous, Q6H PRN perflutren protein-a (OPTISON) 3 mL in sodium chloride 0.9% 8 mL syringe, 1-8 mL, intravenous, Oncein imaging potassium chloride ER, 40 mEq, oral, Q2H PRN sodium chloride 0.9%, 0.5-20 mL, intra-catheter, PRN sodium chloride 0.9%, 30 mL/hr, intravenous, Continuous PRN sodium phosphate - potassium phosphate, 500 mg, oral, Daily PRN sodium chloride 0.9%, 30 mL/hr Vitals Most Recent Vitals: T 36.8 ??C (98.2 ??F), HR 100, BP 122/62, RR 24, SpO2 92 %. 24hr Min/Max: Temp Min: 36.8 ??C (98.2 ??F) Max: 36.9 ??C (98.5 ??F) Pulse Min: 94 Max: 108 BP Min: 113/58 Max: 124/70 Resp Min: 20 Max: 24 SpO2 Min: 92 % Max: 94 % Intake/Output Summary (Last 24 hours) at 02/22/2024 0857 Last data filed at 02/22/2024 0855 Gross per 24 hour Intake 1250 ml Output 980 ml Net 270 ml Physical Exam Constitutional:NAD, well developed, well nourished Eyes:PERRL, EOMI, anicteric ENT:NCAT, oropharynx normal, moist mucus membranes Lungs:Coarse rales b/l lungs Cardiovascular:RRR, normal S1 and S2 GI:Soft, non-tender, non-distended Extremities:Extremity swelling Neurologic:AOx4, CNII-XII intact, normal strength and sensation Psychiatric:Normal affect and mood I have reviewed the patient's vital signs. Lines, Drains, Airways Peripheral IV 02/18/24 20 G Anterior;Distal;Left;Upper Arm (Active) Labs/Diagnostic Review CBC: Recent Labs Lab Units 02/22/24 0230 WBC K/cumm 13.9* HEMOGLOBIN g/dL 11.9* HEMATOCRIT % 31.0* MCV fL 95.4 MCH pg 36.6* MCHC g/dL 38.4* RDW CV % 17.2* RDWSD fL 57.8* MPV fL 12.9* NEUTROS ABS K/cumm 6.4 LYMPHS PCT % 15.5 CMP: Recent Labs Lab Units 02/22/24 0230 SODIUM mmol/L 133* POTASSIUM PLASMA mmol/L 4.8 CO2 mmol/L 21* BUN SERUM mg/dL 20 GLUCOSE mg/dL 96 CREATININE mg/dL 0.81 CALCIUM mg/dL 7.6* CHLORIDE mmol/L 104 ALBUMIN g/dL 2.4* AST Units/L 58* ALT Units/L 19 ALK PHOS Units/L 184* BILIRUBIN TOTAL mg/dL 4.1* TOTAL PROTEIN g/dL 4.6* ANIONGAP mmol/L 8 LDH: Recent Labs Lab Units 02/22/24 0230 LACTATE DEHYDROGENASE (LDH) Units/L 491* INR 1.47 Uric Acid:3.0 (Labs above are the most recent result obtained in the last 24 hours unless otherwise specified. For additional labs/trends, see Epic.) I have reviewed the laboratory results. Imaging Review No results found. Assessment/Plan Acute respiratory failure with hypoxia (CMS/HCC) (HCC) Assessment & Plan Arrived with 2L oxygen requirement iso shock, PNA, rhinovirus. CT w/ left lower lobe cavitary PNA with left pleural effusion, increased from priors LEDs negative RVP +rhino/enterovirus Antibiotics as above for bacteremia Bacteremia Assessment & Plan Arrived in septic shock requiring low-dose levophed for <24 hours. BCx 02/17 and 02/18 BC +MSSA /, source likely PNA versus sinusitis with workup pending s/p Azithro, 02/18 changed Zosyn to Cefazolin and discontinued Linezolid as d/w ID ID consulted, currently on Zosyn/Cefazolin pending culture clearance (s/p linezolid, vanc, cefepime, flagyl, azithro) BC 02/19-, BC 02/20 growing Gram-positive cocci in clusters from 1/2 bottles Daily blood cultures till clear TTE with no obvious valvular vegetations CVID (common variable immunodeficiency) (HCC) Assessment & Plan Secondary to liver transplant. Now on monthly Cutaquig, last dose 02/13. Med onc c/s. Bicytopenia Assessment & Plan Hgb baseline 10s-12s. Transferred to floor w/ 11.9. No signs of bleeding. Hgb goal 7.0, supportive transfusions, maintain type/screen. TCP is new this admission, baseline normal, now between 70-94. Most likely secondary to sepsis, bacteremia. Plt goal 10, or 50 if bleeding. 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 CMV viremia subpopulations w/ heterogenous resistance (h/o ganciclovir, cidofovir, maribavir) Transplant ID consulted, plan to cont valganciclovir and letermovir appreciate ID recs, assistance History of liver transplant ([facility]) ([facility]) Assessment & Plan Pt w/ autoimmune hepatitis, s/p OLT 03/1999 c/b PTLD and now has CVID (on IVIG) tacrolimus (0.5mg every other day); check tacro level and adjust tacro per daily troughs hold home lasix and spironolactone iso recent shock, ongoing bacteremia liver transplant team following cont ursodiol History of pulmonary embolus (PE) Assessment & Plan Remote. No longer on a/c. Chronic pansinusitis Assessment & Plan Follows w/ ENT as outpatient. Most recently completed outpatient course of levofloxacin -> augmentin. Now w/ MSSA bacteremia, sinus source possible MRSA nares negative antibiotics: see #Bacteremia Code status : Full Code Diet : Adult Diet Regular PT/OT Dispo Rec : PT Recommendation/Plan: Home independently / Supplementary Attestation My total encounter time on this service date was 40 minutes which was spent performing a [id number] encounter and personally completing the provider-level activities documented in the note. This includes time spent prior to the visit and after the visit in direct care of the patient. This time does not include time spent in any separately reportable services. Roxann Craft MD * Adriane Mast, PT - 02/21/2024 8:49 AM CDT Physical Therapy Physical Therapy Initial Assessment NOTE: This is a summary note for the santana assessments completed during the evaluation session. For full details, review chart review for all flowsheets documented on by this physical therapist on thisdate. Vital signs documented in vital signs flowsheet. Assessment Assessment Prognosis: Good Plan Plan Plan : Discharge, If this is the last note, consider this the discharge summary PT Recommendation and Plan Recommendation/Plan PT Recommendation/Plan: Home independently Patient at high risk for: Readmission PT Frequency during current admission: One time visit (Discharge from this service) PT - OK to Discharge: Yes PT Evaluation Complete: Yes General Information General Chart Reviewed: Yes Session Type: Evaluation (and discharge) PT Received On: 02/21/24 Safe Environment: Arm band checked, Patient found in supine, Gait belt not utilized, see comment (per PT discretion) Subjective: Agreeable to Therapy Physical Therapy-Patient Goal: No acute care PT needs at this time Prior Function Prior Function Level of [place]: Independent with ADLs, Independent functional transfers, Independent with ambulation Lives With: Parents Receives Help From: Family (PT assist) Fall within the last 6 months: No Home Living Home Living Type of Home: House Home Layout: One level Home Access: Stairs to enter without rails Entrance Stairs-Rails: None Entrance Stairs-Number of Steps: 2 Home Mobility Equipment-Available: Crutches Home Mobility Equipment-Currently Using: None Precautions Precautions Precautions: Fall risk Pain Pain Assessment Pain Assessment: 0-10 Pain Score: 6 Pain Location: Back (Lumbar) Pain Interventions: Repositioned, Physical Therapy, RN Notified (RN Erning aware) Cognition Cognition Arousal/Alertness: Alert, Appropriate responses to stimuli Orientation : Oriented X4 (person, place, time, situation) Following Commands: Follows all commands and directions without difficulty Compliance/Behavior: Easy to engage 6 Clicks Basic Mobility - 6 Click How much difficulty does the patient have: Turning over in bed: None How much difficulty does the patient currently have: Sitting down and standing up from a chair witharms?: None How much difficulty does the patient have: Moving from lying on back to sitting on the side of the bed?: None How much difficulty does the patient have: Moving to and from a bed to a chair including wheelchair?: None How much help does the patient currently need: Walk in hospital room?: None How much help from another person does the patient currently need: Climbing 3-5 steps with a railing?: None Total 6 Click Score (range 6-24): 24 Score Interpretation: 24 Bed Mobility Bed Mobility 1 Bed Mobility From 1: Supine Bed Mobility Type 1: To and from Bed Mobility to 1: Short sit, Edge of bed Level of Assistance 1: Modified Independent Bed Mobility Comments 1: HOB elevated Transfers Transfer 1 Transfer From 1: Sit Transfer Type 1: To and from Transfer to 1: Stand Technique 1: Sit to stand, Stand to sit Transfer Device 1: No device Transfer Level of Assistance 1: Modified Independent Trials/Comments 1: use of BUE's Balance Static Sitting Balance Static Sitting-Balance Support: Feet supported, No upper extremity supported Static Sitting-Sitting Surface: Bed Static Sitting-Level of Assistance: Independent Static Standing Balance Static Standing-Balance Support: No upper extremity supported Static Standing-Standing Surface: Floor Static Standing-Level of Assistance: Independent Ambulation Ambulation 1 Distance (ft) 1: 200 Surface 1: Level tile Device 1: No device Assistance 1: Independent Gait: Requires verbal cues to 1: Pace activity, Utilize pursed lip breathing Gait Deviations 1: Petty - decreased, Step length - decreased Stairs Stairs Stairs: No Stair Comments: pt reports no concern for stairs at this time Curbs RLE Assessment RLE Assessment RLE Assessment: Within Functional Limits LLE Assessment LLE Assessment LLE Assessment: Within Functional Limits Equipment Used Safe Environment End of Session Safe Environment End of Therapy Session: Patient left supine in bed, RN notified, Overbed table within reach, Bed in lowest position with wheels locked Other Comments PT Goals Multi-Disciplinary Problems (from Physical Therapy) Active Problems Not on file * Roland Grider MD - 02/21/2024 7:52 AM CDT Oncology Daily Progress Note Division of Hospital Medicine Name: Beka Lares : 1995 Today's Date: February 21, 2024 Age: 29 y.o. male Admission: 02/18/2024 Bed: [id number] LOS: 3 days Subjective Chief complaint: MSSA Bacteremia Interval History No acute events overnight. Afebrile, vital signs stable and within normal limits. Urine output of 2.1 L. Labs notable for AST 59, ALT 25, alk-phos 177, total bilirubin 2.7, platelets 80. 4/21 ultrasound venous duplex bilaterally showed no acute DVTs. Most recent positive blood cultures for MSSA wason 02/18. Objective Scheduled Meds PRN Meds Infusions ceFAZolin, 2,000 mg, intravenous, Q8H PIPPA enoxaparin, 40 mg, subcutaneous, Daily-2100 guaiFENesin ER, 600 mg, oral, BID letermovir, 480 mg, oral, Daily sodium chloride 0.9%, 0.5-20 mL, intra-catheter, Q8H PIPPA tacrolimus, 0.5 mg, oral, Q48H ursodioL, 600 mg, oral, Daily with dinner valGANciclovir, 900 mg, oral, BID acetaminophen, 1,000 mg, oral, Q6H PRN sodium chloride 0.9%, 30 mL, intravenous, PRN magnesium sulfate, 4 g, intravenous, Q4H PRN magnesium sulfate, 6 g, intravenous, Q4H PRN ondansetron, 4 mg, intravenous, Q6H PRN potassium chloride ER, 40 mEq, oral, Q2H PRN sodium chloride 0.9%, 0.5-20 mL, intra-catheter, PRN sodium chloride 0.9%, 30 mL/hr, intravenous, Continuous PRN sodium phosphate - potassium phosphate, 500 mg, oral, Daily PRN sodium chloride 0.9%, 30 mL/hr Vitals Most Recent Vitals: T 36.6 ??C (97.9 ??F), HR 81, BP 116/67, RR 20, SpO2 94 %. 24hr Min/Max: Temp Min: 36.4 ??C (97.6 ??F) Max: 36.7 ??C (98.1 ??F) Pulse Min: 74 Max: 103 BP Min: 104/66 Max: 129/82 Resp Min: 18 Max: 32 SpO2 Min: 94 % Max: 96 % Intake/Output Summary (Last 24 hours) at 02/21/2024 9072 Last data filed at 02/21/2024 0430 Gross per 24 hour Intake 255 ml Output 1850 ml Net -1595 ml Physical Exam Vitals reviewed. Constitutional: Appearance: He is ill-appearing. HENT: Head: Normocephalic and atraumatic. Eyes: Pupils: Pupils are equal, round, and reactive to light. Cardiovascular: Rate and Rhythm: Normal rate and regular rhythm. Heart sounds: Normal heart sounds. Pulmonary: Effort: Pulmonary effort is normal. Breath sounds: Rales present. Abdominal: General: Abdomen is flat. Palpations: Abdomen is soft. Musculoskeletal: Right lower leg: No edema. Left lower leg: No edema. Skin: General: Skin is warm. Neurological: General: No focal deficit present. Mental Status: Mental status is at baseline. Psychiatric: Mood and Affect: Mood normal. Behavior: Behavior normal. Lines, Drains, Airways Peripheral IV 02/18/24 20 G Anterior;Distal;Left;Upper Arm (Active) Labs/Diagnostic Review CBC: Recent Labs Lab Units 02/21/24 0519 WBC K/cumm 10.8* HEMOGLOBIN g/dL 11.9* HEMATOCRIT % 30.9* MCV fL 96.3 MCH pg 37.1* MCHC g/dL 38.5* RDW CV % 17.1* RDWSD fL 59.3* MPV fL 12.5* NEUTROS ABS K/cumm 5.5 LYMPHS PCT % 18.2 CMP: Recent Labs Lab Units 02/21/24 0519 SODIUM mmol/L 139 POTASSIUM PLASMA mmol/L 4.4 CO2 mmol/L 23 BUN SERUM mg/dL 23 GLUCOSE mg/dL 87 CREATININE mg/dL 0.85 CALCIUM mg/dL 7.7* CHLORIDE mmol/L 108 ALBUMIN g/dL 2.4* AST Units/L 59* ALT Units/L 25 ALK PHOS Units/L 177* BILIRUBIN TOTAL mg/dL 2.7* TOTAL PROTEIN g/dL 4.6* ANIONGAP mmol/L 8 LDH: INR - Uric Acid:- (Labs above are the most recent result obtained in the last 24 hours unless otherwise specified. For additional labs/trends, see Epic.) I have reviewed the laboratory results. Imaging Review No results found. I have independently reviewed and interpreted CBC, CMP, blood cultures. Assessment/Plan Acute respiratory failure with hypoxia (CMS/HCC) (HCC) Assessment & Plan Arrived with 2L oxygen requirement iso shock, PNA, rhinovirus. - CT w/ left lower lobe cavitary PNA with left pleural effusion, increased from priors - LEDs negative - RVP +rhino/enterovirus - antibiotics as above for bacteremia * Bacteremia Assessment & Plan Arrived in septic shock requiring low-dose levophed for <24 hours. - BCx 02/17 and 02/18 BC +MSSA 12/03, source likely PNA versus sinusitis with workup pending - s/p Azithro, 02/18 changed Zosyn to Cefazolin and discontinued Linezolid as d/w ID - ID consulted, currently on Zosyn/Cefazolin pending culture clearance (s/p linezolid, vanc, cefepime, flagyl, azithro) - Daily blood cultures till clear - TTE pending CVID (common variable immunodeficiency) (HCC) Assessment & Plan Secondary to liver transplant. Now on monthly Cutaquig, last dose 02/13. - Med onc c/s. Bicytopenia Assessment & Plan - Hgb baseline 10s-12s. Transferred to floor w/ 11.9. No signs of bleeding. Hgb goal 7.0, supportive transfusions, maintain type/screen. - TCP is new this admission, baseline normal, now between 70-94. Most likely secondary to sepsis, bacteremia. Plt goal 10, or 50 if bleeding. 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[facility]) Assessment & Plan Patient with chronic CMV with multiple resistance patterns. CMV viremia subpopulations w/ heterogenous resistance (h/o ganciclovir, cidofovir, maribavir) - Transplant ID consulted, plan to cont valganciclovir and letermovir - appreciate ID recs, assistance History of liver transplant ([facility]) ([facility]) Assessment & Plan Pt w/ autoimmune hepatitis, s/p OLT 03/1999 c/b PTLD and now has CVID (on IVIG) - tacrolimus (0.5mg every other day); check tacro level and adjust tacro per daily troughs - hold home lasix and spironolactone iso recent shock, ongoing bacteremia - liver transplant team following - cont ursodiol History of pulmonary embolus (PE) Assessment & Plan Remote. No longer on a/c. Chronic pansinusitis Assessment & Plan Follows w/ ENT as outpatient. Most recently completed outpatient course of levofloxacin -> augmentin. - Now w/ MSSA bacteremia, sinus source possible - MRSA nares negative - antibiotics: see #Bacteremia Code status : Full Code Diet : Adult Diet Regular PT/OT Dispo Rec : / Supplementary Attestation My total encounter time on this service date was 30 minutes which was spent performing a [id number] encounter and personally completing the provider-level activities documented in the note. This includes time spent prior to the visit and after the visit in direct care of the patient. This time does not include time spent in any separately reportable services. Roland Girder MD * [place] NP - 02/20/2024 7:21 AM CDT Critical Care Medicine Daily Progress Subjective Beka Lares is a 29 y.o. male admitted on 02/18/2024 5:12 AM septic shock Interval History: repeat blood cultures + MSSA, repeat BC sent, d/c'd RIJ CVC Scheduled Medications: azithromycin, 500 mg, intravenous, Q24H PIPPA ceFAZolin, 2,000 mg, intravenous, Q8H PIPPA enoxaparin, 40 mg, subcutaneous, Daily-2100 guaiFENesin ER, 600 mg, oral, BID letermovir, 480 mg, oral, Daily predniSONE, 10 mg, oral, Daily tacrolimus, 0.5 mg, oral, Q48H ursodioL, 600 mg, oral, Daily with dinner valGANciclovir, 900 mg, oral, BID Continuous Medications: sodium chloride 0.9%, 30 mL/hr PRN Medications: acetaminophen ondansetron sodium chloride 0.9% Objective Vitals: Most Recent: BP 104/64 (BP Location: Left arm, Patient Position: HOB 30 degrees) Pulse 86 Temp 36.4 ??C (97.5 ??F) (Axillary) Resp (!) 32 Ht 172.7 cm (5' 8 ) Wt 70.7 kg (155 lb 13.8 oz) SpO2 95% BMI23.70 kg/m?? 24hr Min/Max: Temp Min: 36.4 ??C (97.5 ??F) Max: 37.1 ??C (98.8 ??F) Pulse Min: 76 Max: 146 BP Min: 83/42 Max: 116/61 Resp Min: 18 Max: 34 SpO2 Min: 86 % Max: 96 % Vent settings: / / / Mode of Oxygenation: O2 Flow Rate (L/min): 2 L/min I/O: Date 02/19/24 07 - 02/20/2465802/20/24 07 - 02/21/24 0659 Shift 24 Hour Total 1899-0659 24 Hour Total INTAKE P.O. 1740 1740 I.V.(mL/kg) 8.8(0.1) 8.8(0.1) IV Piggyback 871 84 6018 Shift Total(mL/kg) 2743.8(38.8) 40(0.6) 2783.8(39.4) OUTPUT Urine(mL/kg/hr) 800(0.9) 675(0.8) 1475(0.9) Shift Total(mL/kg) 800(11.3) 675(9.5) 1475(20.9) NET 1943.8 -635 1308.8 Weight (kg) 70.7 70.7 70.7 70.7 70.7 70.7 Physical Exam: General: resting comfortably with no visible signs of distress HEENT: Moist mucus membranes, EOMs intact, trachea midline Neuro: A&Ox3, follows commands, PERRL Cardiovascular: Audible S1, S2, RRR, no murmurs, gallops, rubs, +2 pulses, trace edema Lungs: lung sounds diminished bilaterally, + cough Abdomen: soft, nondistended, nontender, bowel sounds positive Skin: warm, dry, intact Musculoskeletal: moves all extremities Lab/Radiology/Diagnostic Review: Lab results in the last 24 hours: Recent Results (from the past 24 hour(s)) Tacrolimus level trough Collection Time: 02/19/24 7:55 AM Result Value Ref Range Tacrolimus trough 3.6 ng/mL Lactate Collection Time: 02/19/24 7:55 AM Result Value Ref Range Lactate 2.1 (H) 0.7 - 2.0 mmol/L Oxyhemoglobin, central venous Collection Time: 02/19/24 7:55 AM Result Value Ref Range Oxyhemoglobin, CV 77.9 % Pneumonia PCR with aerobic culture and Gram stain Sputum Collection Time: 02/19/24 7:59 AM Specimen: Sputum Result Value Ref Range Direct Specimen Exam (.) Molecular Analysis: 10^6 copies/mL Staphylococcus aureus Methicillin susceptible Staphylococcus aureus (MSSA) detected by molecular analysis. Correlation of molecular analysis with final culture results is recommended. Direct Specimen Exam Stain: No polymorphonuclear leukocytes seen. No squamous epithelial cells seen. Abundant Mixed bacterial bret seen on Gram stain. Pneumonia PCR Sputum Collection Time: 02/19/24 7:59 AM Specimen: Sputum Result Value Ref Range C. pneumoniae DNA Not Detected Not Detected Legionella pneumophila DNA Not Detected Not Detected M. pneumoniae DNA Not Detected Not Detected Adenovirus DNA Not Detected Not Detected Coronavirus (229E, OC43, HKU1, NL63) RNA Not Detected Not Detected Metapneumovirus RNA Not Detected Not Detected Rhinovirus/Enterovirus RNA Detected (A) Not Detected Influenza A RNA Not Detected Not Detected Influenza B RNA Not Detected Not Detected Parainfluenza virus (1-4) RNA Not Detected Not Detected RSV RNA Not Detected Not Detected Comprehensive metabolic panel Collection Time: 02/20/24 1:46 AM Result Value Ref Range Sodium 139 135 - 145 mmol/L Potassium, pl 4.5 3.3 - 4.9 mmol/L Chloride 109 97 - 110 mmol/L CO2 24 22 - 32 mmol/L Anion gap 6 2 - 15 mmol/L BUN 33 (H) 6 - 25 mg/dL Creatinine 1.07 0.80 - 1.30 mg/dL Glucose 122 70 - 199 mg/dL Calcium 7.7 (L) 8.5 - 10.3 mg/dL Bilirubin, total 2.8 (H) 0.1 - 1.2 mg/dL Protein, pl 4.5 (L) 6.5 - 8.5 g/dL Albumin 2.3 (L) 3.5 - 5.0 g/dL Alk phos 161 (H) 40 - 130 Units/L ALT 29 7 - 55 Units/L AST 57 (H) 10 - 50 Units/L Magnesium Collection Time: 02/20/24 1:46 AM Result Value Ref Range Magnesium 2.5 1.4 - 2.5 mg/dL Phosphorus Collection Time: 02/20/24 1:46 AM Result Value Ref Range Phosphorus, pl 2.8 2.3 - 4.5 mg/dL CBC with auto differential Collection Time: 02/20/24 1:46 AM Result Value Ref Range WBC 13.7 (H) 3.8 - 9.9 K/cumm Hgb 11.2 (L) 13.0 - 17.5 g/dL Hct 29.8 (L) 38.9 - 50.3 % Plt 75 (L) 150 - 400 K/cumm MPV 12.8 (H) 9.1 - 12.3 fL RBC 2.99 (L) 4.30 - 5.80 M/cumm MCV 99.7 (H) 81.3 - 96.4 fL MCH 37.5 (H) 27.1 - 33.3 pg MCHC 37.6 (H) 32.3 - 35.7 g/dL RDW CV 16.6 (H) 11.1 - 14.9 % RDW SD 59.0 (H) 35.7 - 48.1 fL NRBC abs 0.00 0.00 - 0.01 K/cumm Differential, auto Collection Time: 02/20/24 1:46 AM Result Value Ref Range Neutrophil abs 9.7 (H) 1.5 - 6.5 K/cumm Imm gran abs 0.9 (H) 0.0 - 0.1 K/cumm Lymphocyte abs 0.8 0.8 - 3.3 K/cumm Monocyte abs 2.3 (H) 0.2 - 0.8 K/cumm Eosinophil abs 0.0 0.0 - 0.5 K/cumm Basophil abs 0.1 0.0 - 0.1 K/cumm Neutrophil pct 70.5 % Imm gran pct 6.6 % Lymphocyte pct 6.0 % Monocyte pct 16.4 % Eosinophil pct 0.1 % Basophil pct 0.4 % eGFR Collection Time: 02/20/24 1:46 AM Result Value Ref Range eGFR >90 >=60 mL/min/1.73 m2 Radiology Review: XR Chest 1 View Result Date: 02/18/2024 Comparison is made to chest radiograph dated 02/18/2024 at 6:07 AM. Right internal jugular venous approach catheter tip overlies the superior cavoatrial junction. Multiple clips overlie the upper abdomen. No significant interval change in left basilar airspace opacities, in keeping with pneumonia and better characterized by CT chest of 02/18/2024. New mild pulmonary edema. Small bilateral pleuraleffusions are better characterized by prior chest CT. No pneumothorax. Stable enlarged cardiac silhouette. Electronically signed by: Cathleen Flanagan M.D. CT Chest W Contrast Result Date: 02/18/2024 Interval development of left lower lobe cavitary pneumonia with a left pleural effusion that has increased in size compared to the prior study. Compared to prior study, right basilar pneumonia has resolved with decrease in right pleural effusion. Electronically signed by: Vik Moreira M.D. XR Chest 1 Vw Portable Result Date: 02/18/2024 Comparison is made to prior study 01/05/2024. In the interval, there has been development of a focal opacity left base which could represent fractures pneumonia. Bilateral tiny pleural effusions are seen. No pneumothorax, pulmonary edema. Heart size is moderately enlarged but unchanged. No pneumothorax. Clips are seen in the right upper quadrant Electronically signed by: Vik Moreira M.D. No valid procedures specified. LDA: CVC Triple Lumen 02/18/24 Non-tunneled #1 White, #2 Blue, #3 Brown, Right Internal jugular (Active) Placement Date/Time: 02/18/24 1622 Catheter Time Out Checklist Completed: Yes Hand Hygiene Performed: Yes Site Prep: Chlorhexidine Site Prep Agent has Completely Dried Before Insertion: Yes All 5 Sterile Barriers or Appropriate Barriers Used (Gl... Number of days: 0 Assessment/Plan Shock (CMS/HCC) ([facility]) Assessment & Plan Likely sepsis in setting of MSSA pneumonia, [...] 02/18 changed Zosyn to Cefazolin and discontinued Linezolidas d/w ID -02/17 and 02/18 BC +MSSA, repeat BC sent 02/19, will obtain daily surveillance BC until clear, discontinued RIJ CVC -TTE pending -fungal work up pending -Transplant Infectious Disease team following, appreciate recs Acute respiratory failure with hypoxia (CMS/[facility]) ([facility]) Assessment & Plan Pneumonia vs volume overload vs other. RR 40s. CXR with RLL pneumonia. CT chest with left lower lobe cavitary pneumonia with a left pleural effusion. -RVP + rhinovirus. -S/p Azithro/Cefe/Flagyl/Vanc in ED -will continue Azithro for 3 day course, 02/18 changed Zosyn to Cefazolin and discontinued Linezolidas d/w ID -MRSA swab neg -legionella neg -LE duplex scan pending -wean oxygen for goal SpO2 > 92% WATSON (acute kidney injury) ([facility]) Assessment & Plan Cr 1.54. Pre-renal vs ATN. s/p 3L IVF and vancomycin in ED, contrast CT obtained in ED. BUN 26 -trend UOP -trend Cr 1.54 > 1.07 today -urine lytes FENA 0.7% c/w pre-renal etiology -avoid nephrotoxins -renally dose medications Chronic pansinusitis Assessment & Plan Follows with ENT. Prescribed Levaquin on 02/06 and switched to Augmentin after called that swab was MSSA. Also on prednisone -antibiotics as described -s/p 12 day course of prednisone 10mg per ENT History of pulmonary embolus (PE) Assessment & Plan 10/19/2017 -no longer on anticoagulation Portal hypertension ([facility]) ([facility]) Assessment & Plan tBili 3.9, Alk phos 175, AST 69 -consider RUQ US -will restart home lasix and spironolactone as needed CVID (common variable immunodeficiency) ([facility]) Assessment & Plan on IVIg, last infusion 10/09/23; now on monthly SQ Cutaquig 16.5%, last dose 02/14/24 -follow up with [facility] team Hypoalbuminemia Assessment & Plan Albumin 2.5. Due to poor PO intake -rate quoting operator following Hyponatremia Assessment & Plan likely 2/2 portal hypertension. Na 127. -urine osm 168, urine Na <20, serum osm 278 -Na improving, now 139 Hypocalcemia Assessment & Plan Due to poor PO intake -goal ionized sammy > 4.5 Bicytopenia Assessment & Plan Hgb 11.2. 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 Follows with Dr. Head - Med/Onc following Idiopathic thrombocytopenic purpura (HCC) Assessment & Plan s/p splenectomy 2012 FEN: ADAT, monitor and replete electrolytes Access: RIJ CVC 02/17, PIV Ppx: Lovenox Code status: Full Code La Granger NP Cosigned by Guicho Chan MD at 02/20/2024 12:34 PM CDT Associated attestation - Guicho Chan MD - 02/20/2024 12:34 PM CDT Critical care time: I have spent 31 minutes in attendance of this patient making frequent reassessments and decisions regarding this patient's complex medical care in addition and separately from theNPP(non physician provider). Critical care was necessary to treat or prevent imminent or life-threatening deterioration of the following conditions. Septic shock, pneumonia, bacteremia. Feeling better. No new complaints. PE: Vitals: 02/20/24 1200 BP: Pulse: Resp: Temp: 36.7 ??C (98.1 ??F) SpO2: Gen: nad, in bed Heent: op clear, mmm Cv: rrr, no m/r/g, S1/S2 Pulm: clear, unlabored, no wheezing/ronchi Abd: soft, NT/ND Ext: wwp Labs: reviewed in epic. A&P: Septic shock - improving. Off vasopressors. Acute respiratory failure with hypoxia - antibiotics as above, due to LLL cavitary pneumonia. Smallpleural effusion at this time, will monitor. Improving. Acute kidney injury, hyperkalemia - likely pre-renal/ATN - trend urine output,, IV fluids as needed, renally dose medications, trend renal function and potassium. Portal hypertension - hold home diuretics. CVID - on chronic SQ IG replacement via pump qmonth, last dose 02/14/24. Hyponatremia - likely hypovolemic, ?SIADH given lung infection. Trend w/ fluid replacement and tx of infection, send urine/serum studies. CMV infection - continue chronic antiviral meds. Autoimmune hepatitis s/p liver txp - continue tacro per txp service, check tacro level, ursodiol Bacteremia: MSSA. Cont cefazolin. Repeat cultures until clear. All lines removed. TTE. Okay to ttf. I have seen and examined this patient on day of service. I have reviewed and confirmed the history,physical exam, laboratory and radiographic data with the NPP (non-physician provider) as documentedin the NPP note. I have reviewed and discussed my treatment plan with the ICU team and NPP. * La Granger, COORDINATOR OF PLACEMENT - 02/19/2024 6:27 AM CDT Critical Care Medicine Daily Progress Subjective Beka Lares is a 29 y.o. male admitted on 02/18/2024 5:12 AM septic shock Interval History: Blood cultures + MSSA. Scheduled Medications: azithromycin, 500 mg, intravenous, Q24H PIPPA enoxaparin, 40 mg, subcutaneous, Daily-2099 letermovir, 480 mg, oral, Daily linezolid, 600 mg, intravenous, Q12H IPPPA piperacillin-tazobactam, 4.5 g, intravenous, Q6H PIPPA predniSONE, 10 mg, oral, Daily tacrolimus, 0.5 mg, oral, Q48H ursodioL, 600 mg, oral, Daily with dinner valGANciclovir, 900 mg, oral, BID Continuous Medications: sodium chloride 0.9%, 30 mL/hr PRN Medications: acetaminophen ondansetron sodium chloride 0.9% Objective Vitals: Most Recent: BP 102/58 (BP Location: Right arm, Patient Position: HOB 30 degrees) Pulse 102 Temp 36.6 ??C (97.9 ??F) (Axillary) Resp 28 Ht 172.7 cm (5' 8 ) Wt 70.7 kg (155 lb 13.8 oz) SpO2 94% BMI 23.70 kg/m?? 24hr Min/Max: Temp Min: 36.3 ??C (97.3 ??F) Max: 38.8 ??C (101.8 ??F) Pulse Min: 72 Max: 122 BP Min: 82/68 Max: 128/87 Resp Min: 20 Max: 41 SpO2 Min: 91 % Max: 98 % Vent settings: / / / Mode of Oxygenation: O2 Flow Rate (L/min): 2 L/min I/O: Date 02/18/24699 - 02/19/2465802/19/24699 - 02/20/24 0659 Shift [id number] 9249-3793 24 Hour Total 6668-7647 5541-7763 24 Hour Total INTAKE I.V.(mL/kg) 60.8(0.9) 60.8(0.9) IV Piggyback 4005 240 4245 Shift Total(mL/kg) 4065.8(57.5) 240(3.4) 4305.8(60.9) OUTPUT Urine(mL/kg/hr) 700(0.8) 1000 1700 Shift Total(mL/kg) 700(9.9) 1000(14.1) 1700(24) NET 3365.8 -760 2605.8 Weight (kg) 70.7 70.7 70.7 70.7 70.7 70.7 Physical Exam: General: resting comfortably with no visible signs of distress HEENT: Moist mucus membranes, EOMs intact, trachea midline Neuro: A&Ox3, follows commands, PERRL Cardiovascular: Audible S1, S2, RRR, no murmurs, gallops, rubs, +2 pulses, trace edema Lungs: lung sounds diminished bilaterally Abdomen: soft, nondistended, nontender, bowel sounds positive Skin: warm, dry, intact Musculoskeletal: moves all extremities Lab/Radiology/Diagnostic Review: Lab results in the last 24 hours: Recent Results (from the past 24 hour(s)) Calcium, ionized Collection Time: 02/18/24 6:53 AM Result Value Ref Range Calcium, Ionized 4.00 (L) 4.50 - 5.10 mg/dL POCT creatinine Collection Time: 02/18/24 6:59 AM Result Value Ref Range Creatinine POC 1.6 (H) 0.7 - 1.3 mg/dL Sepsis Lactate w/ Reflex Collection Time: 02/18/24 9:28 AM Result Value Ref Range Sepsis Lactate 3.4 (H) 0.7 - 2.0 mmol/L Sepsis Lactate w/ Reflex Collection Time: 02/18/24 12:41 PM Result Value Ref Range Sepsis Lactate 5.0 (Critical) 0.7 - 2.0 mmol/L Critical Result Callback Chemistry Collection Time: 02/18/24 12:41 PM Result Value Ref Range Date Notified [id number] Time Notified 1255 TestName Sepsis Lactate Called/Read Back Omar Garciaentials Called By alistair Urinalysis reflex to microscopic and culture Urine Collection Time: 02/18/24 2:25 PM Specimen: Urine Result Value Ref Range Color, ur Yellow Yellow Clarity, ur Clear Clear Specific gravity, ur 1.034 (H) 1.003 - 1.030 pH, urine 6.0 Protein, ur ql Trace Negative Glucose, ur ql Negative Negative Ketones, ur Negative Negative Bilirubin, ur Negative Negative Blood, ur Negative Negative Urobilinogen, ur <2.0 <2.0 mg/dL Nitrite, ur Negative Negative Leukocyte esterase, ur Negative Negative UA reflex comment Reflex conditions for microscopic UA and culture not met. Comprehensive metabolic panel Collection Time: 02/18/24 4:15 PM Result Value Ref Range Sodium 129 (L) 135 - 145 mmol/L Potassium, pl 5.9 (H) 3.3 - 4.9 mmol/L Chloride 100 97 - 110 mmol/L CO2 20 (L) 22 - 32 mmol/L Anion gap 9 2 - 15 mmol/L BUN 30 (H) 6 - 25 mg/dL Creatinine 1.38 (H) 0.80 - 1.30 mg/dL Glucose 114 70 - 199 mg/dL Calcium 8.4 (L) 8.5 - 10.3 mg/dL Bilirubin, total 4.8 (H) 0.1 - 1.2 mg/dL Protein, pl 5.2 (L) 6.5 - 8.5 g/dL Albumin 2.6 (L) 3.5 - 5.0 g/dL Alk phos 174 (H) 40 - 130 Units/L ALT 32 7 - 55 Units/L AST 84 (H) 10 - 50 Units/L Magnesium Collection Time: 02/18/24 4:15 PM Result Value Ref Range Magnesium 1.9 1.4 - 2.5 mg/dL Phosphorus Collection Time: 02/18/24 4:15 PM Result Value Ref Range Phosphorus, pl 4.8 (H) 2.3 - 4.5 mg/dL Lactate Collection Time: 02/18/24 4:15 PM Result Value Ref Range Lactate 3.2 (H) 0.7 - 2.0 mmol/L Creatine kinase (CK), total Collection Time: 02/18/24 4:15 PM Result Value Ref Range CK 68 40 - 300 Units/L Pro B-type natriuretic peptide Collection Time: 02/18/24 4:15 PM Result Value Ref Range NT-proBNP 3,826 (H) <=300 pg/mL Troponin I high-sensitivity Collection Time: 02/18/24 4:15 PM Result Value Ref Range Trop I hs 4 <=35 ng/L CBC with auto differential Collection Time: 02/18/24 4:15 PM Result Value Ref Range WBC 32.5 (H) 3.8 - 9.9 K/cumm Hgb 12.4 (L) 13.0 - 17.5 g/dL Hct 32.6 (L) 38.9 - 50.3 % Plt 76 (L) 150 - 400 K/cumm MPV 13.2 (H) 9.1 - 12.3 fL RBC 3.32 (L) 4.30 - 5.80 M/cumm MCV 98.2 (H) 81.3 - 96.4 fL MCH 37.3 (H) 27.1 - 33.3 pg MCHC 38.0 (H) 32.3 - 35.7 g/dL RDW CV 15.8 (H) 11.1 - 14.9 % RDW SD 55.8 (H) 35.7 - 48.1 fL NRBC abs 0.00 0.00 - 0.01 K/cumm Protime-INR Collection Time: 02/18/24 4:15 PM Result Value Ref Range PT 20.2 (H) 10.3 - 13.7 sec INR 1.77 (H) 0.90 - 1.20 Osmolality, blood Collection Time: 02/18/24 4:15 PM Result Value Ref Range Osmo 278 275 - 300 mOsm/kg Nadine-De La Cruz Virus (EBV) DNA Quantitative Blood Collection Time: 02/18/24 4:15 PM Specimen: Blood Result Value Ref Range EBV DNA Result Not Detected Hepatitis panel, acute Blood Collection Time: 02/18/24 4:15 PM Specimen: Blood Result Value Ref Range Hep A IgM Nonreactive Nonreactive Hep B core IgM Nonreactive Nonreactive Hep C Ab Nonreactive Nonreactive HepBsAg Nonreactive Nonreactive RPR Blood Collection Time: 02/18/24 4:15 PM Specimen: Blood Result Value Ref Range RPR Nonreactive Nonreactive HIV 1/2 Antibody plus p24 Antigen Blood Collection Time: 02/18/24 4:15 PM Specimen: Blood Result Value Ref Range HIV 1/2 ab + p24 ag Nonreactive Nonreactive Differential, auto Collection Time: 02/18/24 4:15 PM Result Value Ref Range Neutrophil abs 24.1 (H) 1.5 - 6.5 K/cumm Imm gran abs 2.4 (H) 0.0 - 0.1 K/cumm Lymphocyte abs 0.6 (L) 0.8 - 3.3 K/cumm Monocyte abs 5.3 (H) 0.2 - 0.8 K/cumm Eosinophil abs 0.0 0.0 - 0.5 K/cumm Basophil abs 0.1 0.0 - 0.1 K/cumm Neutrophil pct 74.1 % Imm gran pct 7.3 % Lymphocyte pct 1.8 % Monocyte pct 16.4 % Eosinophil pct 0.0 % Basophil pct 0.4 % IgG Collection Time: 02/18/24 4:15 PM Result Value Ref Range Immunoglobulin G 894 700 - 1,600 mg/dL eGFR Collection Time: 02/18/24 4:15 PM Result Value Ref Range eGFR 70 >=60 mL/min/1.73 m2 POC Blood Gas and Chemistries, Venous - Collection Time: 02/18/24 4:22 PM Result Value Ref Range pH, Nathan POC 7.39 7.32 - 7.43 pCO2, nathan POC 32 (L) 40 - 50 mmHg pO2, nathan POC 46 mmHg Na, POC 129 (L) 135 - 145 mmol/L K POC 5.7 (H) 3.3 - 4.9 mmol/L Cl, POC 103 97 - 110 mmol/L Ionized Ca, POC 4.65 4.50 - 5.10 mg/dL Glucose, POC 118 70 - 199 mg/dL Lactate, POC 2.9 (H) 0.7 - 2.2 mmol/L O2 Sat, Nathan POC (Rigoberto) 75 % Base excess, POC -4.7 mmol/L HCO3, Nathan POC 19 (L) 20 - 30 mmol/L Hct, POC 38.0 (L) 41.4 - 51.6 % Total Hb, POC 12.7 (L) 13.8 - 17.2 g/dL O2 Sat, Nathan POC (Calc) 81 % POCT glucose Collection Time: 02/18/24 4:22 PM Result Value Ref Range Glucose, POC 103 70 - 199 mg/dL Creatinine, urine, random Collection Time: 02/18/24 5:00 PM Result Value Ref Range Creatinine Ur 31.3 mg/dL Sodium, urine, random Collection Time: 02/18/24 5:00 PM Result Value Ref Range Sodium, ur <20 mmol/L Urea nitrogen, urine, random Collection Time: 02/18/24 5:00 PM Result Value Ref Range Urea nitrogen, ur 223 mg/dL Osmolality, urine Collection Time: 02/18/24 5:00 PM Result Value Ref Range Osmo, ur 168 mOsm/kg Legionella antigen Urine Collection Time: 02/18/24 5:00 PM Specimen: Urine Result Value Ref Range Legionella Ag Negative Negative Potassium, whole blood Collection Time: 02/18/24 5:33 PM Result Value Ref Range Potassium, bld 5.1 (H) 3.3 - 4.9 mmol/L Comprehensive metabolic panel Collection Time: 02/19/24 2:18 AM Result Value Ref Range Sodium 136 135 - 145 mmol/L Potassium, pl 4.4 3.3 - 4.9 mmol/L Chloride 106 97 - 110 mmol/L CO2 23 22 - 32 mmol/L Anion gap 7 2 - 15 mmol/L BUN 33 (H) 6 - 25 mg/dL Creatinine 1.18 0.80 - 1.30 mg/dL Glucose 117 70 - 199 mg/dL Calcium 7.8 (L) 8.5 - 10.3 mg/dL Bilirubin, total 4.1 (H) 0.1 - 1.2 mg/dL Protein, pl 4.6 (L) 6.5 - 8.5 g/dL Albumin 2.4 (L) 3.5 - 5.0 g/dL Alk phos 158 (H) 40 - 130 Units/L ALT 25 7 - 55 Units/L AST 60 (H) 10 - 50 Units/L Magnesium Collection Time: 02/19/24 2:18 AM Result Value Ref Range Magnesium 2.2 1.4 - 2.5 mg/dL Phosphorus Collection Time: 02/19/24 2:18 AM Result Value Ref Range Phosphorus, pl 4.1 2.3 - 4.5 mg/dL CBC with auto differential Collection Time: 02/19/24 2:18 AM Result Value Ref Range WBC 27.4 (H) 3.8 - 9.9 K/cumm Hgb 11.5 (L) 13.0 - 17.5 g/dL Hct 30.2 (L) 38.9 - 50.3 % Plt 76 (L) 150 - 400 K/cumm MPV 12.5 (H) 9.1 - 12.3 fL RBC 3.11 (L) 4.30 - 5.80 M/cumm MCV 97.1 (H) 81.3 - 96.4 fL MCH 37.0 (H) 27.1 - 33.3 pg MCHC 38.1 (H) 32.3 - 35.7 g/dL RDW CV 15.8 (H) 11.1 - 14.9 % RDW SD 55.0 (H) 35.7 - 48.1 fL NRBC abs 0.00 0.00 - 0.01 K/cumm Differential, auto Collection Time: 02/19/24 2:18 AM Result Value Ref Range Neutrophil abs 17.4 (H) 1.5 - 6.5 K/cumm Imm gran abs 3.3 (H) 0.0 - 0.1 K/cumm Lymphocyte abs 1.0 0.8 - 3.3 K/cumm Monocyte abs 5.5 (H) 0.2 - 0.8 K/cumm Eosinophil abs 0.0 0.0 - 0.5 K/cumm Basophil abs 0.2 (H) 0.0 - 0.1 K/cumm Neutrophil pct 63.7 % Imm gran pct 12.1 % Lymphocyte pct 3.6 % Monocyte pct 20.1 % Eosinophil pct 0.0 % Basophil pct 0.5 % eGFR Collection Time: 02/19/24 2:18 AM Result Value Ref Range eGFR 85 >=60 mL/min/1.73 m2 Radiology Review: XR Chest 1 View Result Date: 02/18/2024 Comparison is made to chest radiograph dated 02/18/2024 at 6:07 AM. Right internal jugular venous approach catheter tip overlies the superior cavoatrial junction. Multiple clips overlie the upper abdomen. No significant interval change in left basilar airspace opacities, in keeping with pneumonia and better characterized by CT chest of 02/18/2024. New mild pulmonary edema. Small bilateral pleuraleffusions are better characterized by prior chest CT. No pneumothorax. Stable enlarged cardiac silhouette. Electronically signed by: Cathleen Flanagan M.D. CT Chest W Contrast Result Date: 02/18/2024 Interval development of left lower lobe cavitary pneumonia with a left pleural effusion that has increased in size compared to the prior study. Compared to prior study, right basilar pneumonia has resolved with decrease in right pleural effusion. Electronically signed by: Vik Moreira M.D. XR Chest 1 Vw Portable Result Date: 02/18/2024 Comparison is made to prior study 01/05/2024. In the interval, there has been development of a focal opacity left base which could represent fractures pneumonia. Bilateral tiny pleural effusions are seen. No pneumothorax, pulmonary edema. Heart size is moderately enlarged but unchanged. No pneumothorax. Clips are seen in the right upper quadrant Electronically signed by: Vik Moreira M.D. No valid procedures specified. LDA: CVC Triple Lumen 02/18/24 Non-tunneled #1 White, #2 Blue, #3 Brown, Right Internal jugular (Active) Placement Date/Time: 02/18/24 1622 Catheter Time Out Checklist Completed: Yes Hand Hygiene Performed: Yes Site Prep: Chlorhexidine Site Prep Agent has Completely Dried Before Insertion: Yes All 5 Sterile Barriers or Appropriate Barriers Used (Gl... Number of days: 0 Assessment/Plan Shock (CMS/HCC) (HCC) Assessment & Plan Likely sepsis in setting of pneumonia, MSSA bacteremia Lactate 3.3-> 3.4 after 3L IV fluids, receiving additional 500ml LR on admit to ICU for lactate 5, s/p Linezolid, Cefepime, Flagyl and Vancomycin in ED, work up pending. Started on Levo in ED. WBC 24.11 -CT Chest with LLL cavitary pneumonia, resolution of RLL pna, bilateral effusions L >R -Wean Levo for goal MAP > 65 -Transplant Infectious Disease team following, appreciate recs -will continue Azithro, Zosyn and Linezolid -PRN tylenol for fever -02/17 BC +MSSA, repeat BC sent 02/18, will obtain daily surveillance BC until clear -TTE pending -fungal work up pending Acute respiratory failure with hypoxia (CMS/HCC) ([facility]) Assessment & Plan Pneumonia vs volume overload vs other. RR 40s. CXR with RLL pneumonia. CT chest with left lower lobe cavitary pneumonia with a left pleural effusion. RVP + rhinovirus. S/p Azithro/Cefe/Flagyl/Vanc inED -wean oxygen for goal SpO2 > 92% -will continue Azithro, Zosyn and Linezolid -f/u MRSA swab -legionella neg -LE duplex scan pending -see shock WATSON (acute kidney injury) ([facility]) Assessment & Plan Cr 1.54. Pre-renal vs ATN. s/p 3L IVF and vancomycin in ED, contrast CT obtained in ED. BUN 26 -trend UOP -trend Cr -urine lytes c/w pre-renal etiology -avoid nephrotoxins -renally dose medications Chronic pansinusitis Assessment & Plan Follows with ENT. Prescribed Levaquin on 02/06 and switched to Augmentin after called that swab was MSSA. Also on prednisone -antibiotics as described -prednisone 10mg (the plan was 12 days from 02/06, completed 02/18) History of pulmonary embolus (PE) Assessment & Plan 10/19/2017 -no longer on anticoagulation Portal hypertension (CMS/HCC) ([facility]) Assessment & Plan tBili 3.9, Alk phos 175, AST 69 -consider RUQ US -hold home lasix and spironolactone CVID (common variable immunodeficiency) ([facility]) Assessment & Plan on IVIg, last infusion 10/09/23; now on monthly SQ Cutaquig 16.5% via sq pump, last dose 02/14/24 -will discuss with MedOnc team Hypophosphatemia Assessment & Plan -goal Phos 3-4 Hypomagnesemia Assessment & Plan due to poor PO intake -goal Mag 2-3 Hypoalbuminemia Assessment & Plan Albumin 2.5. Due to poor PO intake -rate quoting operator following Hyponatremia Assessment & Plan likely 2/2 portal hypertension. Na 127. -send urine osm, urine Na -send serum osm -trend Hypocalcemia Assessment & Plan Due to poor PO intake -goal ionized sammy > 4.5 Bicytopenia Assessment & Plan Hgb 11.5. 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 Follows with Dr. Head - Mp/Onc following Idiopathic thrombocytopenic purpura (HCC) Assessment & Plan s/p splenectomy 2012 FEN: ADAT, monitor and replete electrolytes Access: RIJ CVC 02/17, PIV Ppx: Lovenox Code status: Full Code La Granger NP Cosigned by Guicho Chan MD at 02/19/2024 2:33 PM CDT Associated attestation - Guicho Chan MD - 02/19/2024 2:33 PM CDT Critical care time: I have spent 35 minutes in attendance of this patient making frequent reassessments and decisions regarding this patient's complex medical care in addition and separately from theNPP(non physician provider). Critical care was necessary to treat or prevent imminent or life-threatening deterioration of the following conditions. Septic shock, pneumonia, bacteremia. PE: Vitals: 02/18/24 1615 BP: Pulse: Resp: Temp: 36.3 ??C (97.3 ??F) SpO2: Gen: nad, in bed Heent: op clear, mmm Cv: rrr, no m/r/g, S1/S2 Pulm: clear, unlabored, no wheezing/ronchi Abd: soft, NT/ND Ext: wwp Labs: reviewed in epic. A&P: Septic shock - improving. Off vasopressors. Acute respiratory failure with hypoxia - antibiotics as above, due to LLL cavitary pneumonia. Smallpleural effusion at this time, will monitor. Improving. Acute kidney injury, hyperkalemia - likely pre-renal/ATN - trend urine output,, IV fluids as needed, renally dose medications, trend renal function and potassium. Portal hypertension - hold home diuretics. CVID - on chronic SQ IG replacement via pump qmonth, last dose 02/14/24. Hyponatremia - likely hypovolemic, ?SIADH given lung infection. Trend w/ fluid replacement and tx of infection, send urine/serum studies. CMV infection - continue chronic antiviral meds. Autoimmune hepatitis s/p liver txp - continue tacro per txp service, check tacro level, ursodiol Bacteremia: MSSA. Narrow abx. Repeat cultures. TTE. I have seen and examined this patient on day of service. I have reviewed and confirmed the history,physical exam, laboratory and radiographic data with the NPP (non-physician provider) as documentedin the NPP note. I have reviewed and discussed my treatment plan with the ICU team and NPP. * Alo-Cleo Hdez MD - 02/18/2024 4:12 PM CDT Transplant Hepatology Immunosuppression note History: Beka Lares is a 29 y.o. male w/ autoimmune hepatitis s/p OLT (03/1999) c/b PTLD ( c-Myc, EBV+) s/p R-CHOP, EPOCH-R, last in 2018, CVID, ITP s/p splenectomy. 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 He is presented to the ED with cough, congestion, fatigue, found, CTAP demonstrated a new cavitary pneumonia. He is admitted to the MICU in septic shock and AHRF requiring O2 supplementation. With regards to his liver history, as above, he was around the age of 4 for AIH and has had a complex course. Most recently, admitted to [facility] with E coli bacteremia, liver biopsy at the time revealed a lymphocyte predominant portal infiltrate but no classic features of rejection. There was an increase in laron sinusoidal fibrosis and findings of PSVD with nodularity/ NRH ( which can be seen in CVID). His liver chemistries improved and in light of CMV immunosuppression was not escalated. He has also had an admission in October for bacterial PNA requiring MICU admission. - Admitted in 10/2023 with bacterial pneumonia complicated by parapneumonic effusion. Required MICUadmission and BiPAP. Date of transplant: 03/1999 Immunosuppression regimen: Tacrolimus 0.5mg every other day Plan: Continue home tacrolimus dosing Please check daily LFTs Please check tacrolimus trough levels (trough levels should be drawn 30-60 minutes prior to the next dose due) Hepatology service will be in contact if any changes are required to immunosuppression dosing Agree with checking CMV PCR Cleo Ruelas MD Transplant Hepatology Fellow documented in this encounter H&P Notes * La Garnger, AIDEN - 02/18/2024 3:26 PM CDT Critical Care Medicine History and Physical Subjective Patient is a 29 y.o. male admitted on 02/18/2024 5:12 AM with chief complaint of cough, fatigue, headache. HPI: Beka Lares is a 29 y/o M with PMH of AIH s/p OLT (03/1999) c/b PTLD (c-Myc, EBV+) s/p R-CHOP, EPOCK-R, last in 2018, CVID, ITP s/p splenectomy, chronic sinusitis (recently on levaquin -> then augmentin because swab returned with MSSA), chronic cholestasis with recurrent portal hypertension, 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 In the ED, patient found to be febrile to 38.8C, tachypneic (40), tachycardic (120s). Patient given tylenol and started on oxygen. Patient given IV fuids (a total of 3Lafter B/P started to drop and lactate back high). Significant Labs: Lactate 3.3 -> 3.4 -> 5, iCal 4, Cr 1.6, Na 127, BUN 26, tBili 3.9, Alk phos 175, AST 69, Mag 1.3, Phos 2.2, WBC 24.1, Hgb 12.7, Plt 94. RVP + for Rhinovirus. Patient with CXR which shows right sided pneumonia. Patient then to CT and that shows left lower lobe cavitary pneumonia and left pleural effusion. Patient started onAzithro, Cefepime, Flagyl, Vancomycin. Patient also started on norepinephrine for hypotension. Patient given Phos, Calcium, and magnesium repletion. Patient also given his home ursodiol, letermovir, and valganciclovir. Patient then admitted to the Oncology ICU for further management. Of note, patient has chronic sinusitis and saw ENT in clinic on 02/06. Patient treated with Levaquin and prednisone for a sinus infection. Patient was then called yesterday and the antibiotic prescription was changed to Augmention because the swab came back as MSSA. Patient reports that he has been compliant with all medications. In the ED, patient was given 10mg prednisone to reflect outpatient medication. Past Medical History: Diagnosis Date Cancer (CMS/HCC) [...] BIOPSY LYMPH NODE SUPERFICIAL LEFT N/A 10/07/2021 Medications Prior to Admission Medication Sig Dispense Refill Last Dose Cutaquig 16.5 % solution furosemide (LASIX) 20 mg tablet Take 2 tablets (40 mg total) by mouth daily 60 tablet 1 [facility] heparin lock flush, porcine, Infuse 5 mL (50 Units total) into a venous catheter as needed (LINE CARE) letermovir (PREVYMIS) 480 mg tablet Take 1 tablet (480 mg total) by mouth daily 30 tablet 5 levoFLOXacin (LEVAQUIN) 500 mg tablet Take 1 tablet (500 mg total) by mouth daily for 21 days 21 tablet 0 magnesium oxide (MAG-OX) 400 mg (241.3 mg elemental magnesium) tablet Take 1 tablet (400 mg total) by mouth 2 (two) times a day for 7 days Take while on foscarnet 14 tablet 0 predniSONE (DELTASONE) 10 mg tablet Take 40Mg PO for 3 days, then 30Mg PO for 3 days, then 20Mg PO for 3 days, then 10Mg PO for 3 days. 30 tablet 0 spironolactone (ALDACTONE) 50 mg tablet [...] (two) times a day 120 tablet 5 No Known Allergies Social History Tobacco Use Smoking status: Never Smokeless tobacco: Current Types: Chew Substance and Sexual Activity Drug use: Yes Types: Alcohol Sexual activity: Defer Alcohol Use: Alcohol Misuse (09/01/2023) AUDIT-C Frequency of Alcohol Consumption: Monthly or less Average Number of Drinks: 5 or 6 Frequency of Binge Drinking: Monthly Family History Problem Relation Age of Onset Rectal cancer Mother Rectal cancer - (Added by MARIN Conv) No Known Problems Father Diabetes type II Sister Family history of type 2 diabetes mellitus - (Added by MARIN Conv) Anesthesia problems Other Scheduled Medications: [START ON 02/19/2024] azithromycin, 500 mg, intravenous, Q24H PIPPA cefepime, 2,000 mg, intravenous, Q8H PIPPA enoxaparin, 40 mg, subcutaneous, Daily-2100 letermovir, 480 mg, oral, Daily metroNIDAZOLE, 500 mg, intravenous, Q8H PIPPA potassium, sodium phosphates, 2 packet, oral, TID AC predniSONE, 10 mg, oral, Daily ursodioL, 600 mg, oral, Daily with dinner valGANciclovir, 900 mg, oral, BID vancomycin, 1,250 mg, intravenous, Q12H Continuous Medications: norepinephrine, 0-2 mcg/kg/min, Last Rate: 0.08 mcg/kg/min (02/18/24 1500) sodium chloride 0.9%, PRN Medications: acetaminophen ondansetron sodium chloride 0.9% Review of Systems: Review of systems per HPI and otherwise all other systems are negative Objective Vitals: Most Recent: Vitals: 02/18/24 1500 BP: 96/60 Pulse: 77 Resp: 22 Temp: SpO2: 96% 24hr Min/Max: Temp Min: 36.3 ??C (97.3 ??F) Max: 38.8 ??C (101.8 ??F) Pulse Min: 76 Max: 122 BP Min: 82/68 Max: 128/87 Resp Min: 18 Max: 41 SpO2 Min: 92 % Max: 97 % LDA: Vent settings: 2 liters/min via nasal cannula nasal cannula Hemodynamic parameters for last 24 hours: Physical exam: General appearance: appears stated age, cooperative, fatigued, no acute distress HENT: Normocephalic, without obvious abnormality, atraumatic, EOMs intact, trachea midline Lungs:clear to auscultation bilaterally and diminished left lower lobe Heart: regular rate and rhythm, S1, S2 normal, no murmur, click, rub or gallop Abdomen: rounded, firm, active bowel sounds Extremities: extremities normal, warm and well-perfused Pulses: 1+ and symmetric Skin: Skin color, texture, turgor normal. No rashes or lesions Neurologic: Alert and oriented x4, non-focal Lab/Radiology/Diagnostic Review: Laboratory review: Lab results in the last 12 hours: Recent Results (from the past 12 hour(s)) Respiratory pathogen panel Nasopharyngeal Collection Time: 02/18/24 5:24 AM Specimen: Nasopharyngeal Result Value Ref Range Influenza A RNA Not Detected Not Detected Influenza B RNA Not Detected Not Detected RSV RNA Not Detected Not Detected COVID-19 RNA Not Detected Not Detected Coronavirus 229E RNA Not Detected Not Detected Coronavirus HKU1 RNA Not Detected Not Detected Coronavirus NL63 RNA Not Detected Not Detected Coronavirus OC43 RNA Not Detected Not Detected Adenovirus DNA Not Detected Not Detected Metapneumovirus RNA Not Detected Not Detected Rhinovirus/Enterovirus RNA Detected (A) Not Detected Parainfluenza 1 RNA Not Detected Not Detected Parainfluenza 2 RNA Not Detected Not Detected Parainfluenza 3 RNA Not Detected Not Detected Parainfluenza 4 RNA Not Detected Not Detected B. pertussis DNA Not Detected Not Detected B. parapertussis DNA Not Detected Not Detected C. pneumoniae DNA Not Detected Not Detected M. pneumoniae DNA Not Detected Not Detected CBC with auto differential Collection Time: 02/18/24 5:53 AM Result Value Ref Range WBC 24.1 (H) 3.8 - 9.9 K/cumm Hgb 12.7 (L) 13.0 - 17.5 g/dL Hct 34.3 (L) 38.9 - 50.3 % Plt 94 (L) 150 - 400 K/cumm MPV 12.7 (H) 9.1 - 12.3 fL RBC 3.48 (L) 4.30 - 5.80 M/cumm MCV 98.6 (H) 81.3 - 96.4 fL MCH 36.5 (H) 27.1 - 33.3 pg MCHC 37.0 (H) 32.3 - 35.7 g/dL RDW CV 16.0 (H) 11.1 - 14.9 % RDW SD 57.3 (H) 35.7 - 48.1 fL NRBC abs 0.00 0.00 - 0.01 K/cumm Comprehensive metabolic panel Collection Time: 02/18/24 5:53 AM Result Value Ref Range Sodium 127 (L) 135 - 145 mmol/L Potassium, pl 4.6 3.3 - 4.9 mmol/L Chloride 96 (L) 97 - 110 mmol/L CO2 21 (L) 22 - 32 mmol/L Anion gap 10 2 - 15 mmol/L BUN 26 (H) 6 - 25 mg/dL Creatinine 1.54 (H) 0.80 - 1.30 mg/dL Glucose 89 70 - 199 mg/dL Calcium 7.7 (L) 8.5 - 10.3 mg/dL Bilirubin, total 3.9 (H) 0.1 - 1.2 mg/dL Protein, pl 5.1 (L) 6.5 - 8.5 g/dL Albumin 2.5 (L) 3.5 - 5.0 g/dL Alk phos 175 (H) 40 - 130 Units/L ALT 31 7 - 55 Units/L AST 69 (H) 10 - 50 Units/L Sepsis Lactate w/ Reflex Collection Time: 02/18/24 5:53 AM Result Value Ref Range Sepsis Lactate 3.3 (H) 0.7 - 2.0 mmol/L eGFR Collection Time: 02/18/24 5:53 AM Result Value Ref Range eGFR 61 >=60 mL/min/1.73 m2 Phosphorus Collection Time: 02/18/24 5:53 AM Result Value Ref Range Phosphorus, pl 2.2 (L) 2.3 - 4.5 mg/dL Magnesium Collection Time: 02/18/24 5:53 AM Result Value Ref Range Magnesium 1.3 (L) 1.4 - 2.5 mg/dL Manual Differential Collection Time: 02/18/24 5:53 AM Result Value Ref Range Differential Manual Cells Counted 116 Neutrophil abs 6.8 (H) 1.5 - 6.5 K/cumm Imm gran abs 0.4 (H) 0.0 - 0.1 K/cumm Lymphocyte abs 6.0 (H) 0.8 - 3.3 K/cumm Monocyte abs 10.8 (H) 0.2 - 0.8 K/cumm Neutrophil pct 28.4 % Lymphocyte pct 25.0 % Monocyte pct 44.9 % Myelocyte pct 1.7 % Tacrolimus level random Collection Time: 02/18/24 5:59 AM Result Value Ref Range Tacrolimus random 4.6 ng/mL Calcium, ionized Collection Time: 02/18/24 6:53 AM Result Value Ref Range Calcium, Ionized 4.00 (L) 4.50 - 5.10 mg/dL POCT creatinine Collection Time: 02/18/24 6:59 AM Result Value Ref Range Creatinine POC 1.6 (H) 0.7 - 1.3 mg/dL Sepsis Lactate w/ Reflex Collection Time: 02/18/24 9:28 AM Result Value Ref Range Sepsis Lactate 3.4 (H) 0.7 - 2.0 mmol/L Sepsis Lactate w/ Reflex Collection Time: 02/18/24 12:41 PM Result Value Ref Range Sepsis Lactate 5.0 (Critical) 0.7 - 2.0 mmol/L Critical Result Callback Chemistry Collection Time: 02/18/24 12:41 PM Result Value Ref Range Date Notified [id number] Time Notified 1255 TestName Sepsis Lactate Called/Read Back Omar Garciaentials Called By alistair Urinalysis reflex to microscopic and culture Urine Collection Time: 02/18/24 2:25 PM Specimen: Urine Result Value Ref Range Color, ur Yellow Yellow Clarity, ur Clear Clear Specific gravity, ur 1.034 (H) 1.003 - 1.030 pH, urine 6.0 Protein, ur ql Trace Negative Glucose, ur ql Negative Negative Ketones, ur Negative Negative Bilirubin, ur Negative Negative Blood, ur Negative Negative Urobilinogen, ur <2.0 <2.0 mg/dL Nitrite, ur Negative Negative Leukocyte esterase, ur Negative Negative UA reflex comment Reflex conditions for microscopic UA and culture not met. Micro: blood culture: pending, sputum culture: pending, and urine culture: pending Assessment/Plan Shock ([facility]) ([facility]) Assessment & Plan Likely sepsis in setting of pneumonia. Lactate 3.3-> 3.4 after 3L IV fluids, receiving additional 500ml LR on admit to ICU for lactate 5, s/p Linezolid, Cefepime, Flagyl and Vancomycin in ED, workup pending. Started on Levo in ED. WBC 24.11 -CT Chest with LLL cavitary pneumonia, resolution of RLL pna, bilateral effusions L >R -Wean Levo for goal MAP > 65 - Transplant Infectious Disease team following, appreciate recs -will continue Azithro, Zosyn and Linezolid -PRN tylenol for fever -f/u BC, UA, fungal work up Acute respiratory failure with hypoxia ([facility]) ([facility]) Assessment & Plan Pneumonia vs volume overload vs other. RR 40s. CXR with RLL pneumonia. CT chest with left lower lobe cavitary pneumonia with a left pleural effusion. RVP with rhinovirus. S/p Azithro/Cefe/Flagyl/Vancin ED -wean oxygen for goal SpO2 > 92% -will continue Azithro, Zosyn and Linezolid -f/u MRSA swab -send legionella -see shock WATSON (acute kidney injury) ([facility]) Assessment & Plan Cr 1.54. Pre-renal vs ATN. s/p 3L IVF and vancomycin in ED, contrast CT obtained in ED. BUN 26 -trend UOP -trend Cr -send Urine Na, Urine Cr, urine urea -avoid nephrotoxins -renally dose medications Chronic pansinusitis Assessment & Plan Follows with ENT. Prescribed Levaquin on 02/06 and switched to Augmentin after called that swab was MSSA. Also on prednisone -antibiotics as described -prednisone 10mg (the plan was 12 days from 02/06) History of pulmonary embolus (PE) Assessment & Plan 10/19/2017 -no longer on anticoagulation Portal hypertension ([facility]) ([facility]) Assessment & Plan tBili 3.9, Alk phos 175, AST 69 -consider RUQ US -hold home lasix and spironolactone CVID (common variable immunodeficiency) ([facility]) Assessment & Plan on IVIg, last infusion 10/09/23; now on monthly SQ Cutaquig 16.5% via sq pump, last dose 02/14/24 -will discuss with MedOn team Hypophosphatemia Assessment & Plan -goal Phos 3-4 Hypomagnesemia Assessment & Plan due to poor PO intake -goal Mag 2-3 Hypoalbuminemia Assessment & Plan Albumin 2.5. Due to poor PO intake -rate quoting operator following Hyponatremia Assessment & Plan likely 2/2 portal hypertension. Na 127. -send urine osm, urine Na -send serum osm -trend Hypocalcemia Assessment & Plan Due to poor PO intake -goal ionized sammy > 4.5 Bicytopenia Assessment & Plan Hgb 12.7. 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 Follows with Dr. Head -consult Med/Onc Idiopathic thrombocytopenic purpura (HCC) Assessment & Plan s/p splenectomy 2012 FEN: NPO, monitor and replete electrolytes Access: PIV Ppx: SQH Code status: Full Code [place] NP Cosigned by Ancelmo Kennedy MD at 02/18/2024 5:43 PM CDT Associated attestation - Ancelmo Kennedy MD - 02/18/2024 5:43 PM CDT Critical care time: I have spent 45 minutes in attendance of this patient making frequent reassessments and decisions regarding this patient's complex medical care in addition and separately from theNPP(non physician provider). Critical care was necessary to treat or prevent imminent or life-threatening deterioration of the following conditions. Septic shock Cavitary pneumonia Attending Physician Documentation: History: 29 y/o M with hx of autoimmune hepatitis s/p OLT 5/99 c/b PTLD last tx w/ R-CHOP and EPCH in 2018, CVID, ITP s/p splenectomy, and chronic CMV infection, presenting with pneumonia and septic shock. Hehad an admission in October for bacterial pneumonia also requiring MICU. He notes feeling unwell for about 10 days, and more ill recently. He coughed up a small amount of blood this morning but notes he also was having dry heaving and had vomiting yesterday. On February 06 he saw his ENT physician who recommended that he take levaquin x 3 weeks and prednisone x 12 days. Despite taking this, however, his symptoms worsened. He presented to the ER and was found to have an extensive LLL cavitary pneumonia and shock. He required 3L of IV fluids and was started on low-dose norepinephrine. PE: Vitals: 02/18/24 1615 BP: Pulse: Resp: Temp: 36.3 ??C (97.3 ??F) SpO2: Gen: nad, in bed Heent: op clear, mmm Cv: rrr, no m/r/g, S1/S2 Pulm: clear, unlabored, no wheezing/ronchi Abd: soft, NT/ND Ext: wwp Lab: Reviewed, notable for leukocytosis, acute renal failure, hyperkalemia, lactic acidosis, thrombocytopenia CT Chest - left lower lobe cavitary pneumonia w/ small left pleural effusion A&P: Septic shock - continue norepinephrine, central line placed. Broad-spectrum antibiotics, f/u cultures. Send sputum for pneumonia PCR if possible. Transplant ID following. Send serum galactomannan. Acute respiratory failure with hypoxia - antibiotics as above, due to LLL cavitary pneumonia. Smallpleural effusion at this time, will monitor. Wean FiO2 as tolerated. Acute kidney injury, hyperkalemia - likely pre-renal/ATN - trend urine output,, IV fluids as needed, renally dose medications, trend renal function and potassium. Portal hypertension - hold home diuretics. CVID - on chronic SQ IG replacement via pump qmonth, last dose 02/14/24. Hyponatremia - likely hypovolemic, ?SIADH given lung infection. Trend w/ fluid replacement and tx of infection, send urine/serum studies. CMV infection - continue chronic antiviral meds. Autoimmune hepatitis s/p liver txp - continue tacro per txp service, check tacro level, ursodiol I have seen and examined this patient on day of service. I have reviewed and confirmed the history,physical exam, laboratory and radiographic data with the NPP (non-physician provider) as documentedin the NPP note. I have reviewed and discussed my treatment plan with the ICU team and NPP. Ancelmo Kennedy MD documented in this encounter Procedure Notes * Shanelle Mullen, RN - 02/25/2024 11:12 PM CDT Images from the original note were not included. Vascular Access Nurse: Procedure Note Summary of treatment provided to patient today is as follows : . Bedside Procedure Time out/Checklist (last 4 hours) Pre-Op Checklist Row Name 02/25/24225202/25/242008 Patient/Chart Verification Patient ID Verified Verbal;Armband -ST -- Pre-op Lab/Test Results Available Not applicable -ST -- Antibiotic Status Not applicable -ST -- Procedure Verification Correct Patient Yes -ST -- Correct Procedure Yes -ST -- Correct Laterality Not applicable -ST -- Correct Site Yes -ST -- Site Marked Not applicable -ST -- Patient Preparation Temp -- 36.7 ??C (98.1 ??F) -MAHNAZ User Santana (r) = Recorded By, (t) = Taken By, (c) = Cosigned By Initials Name Lynne Law RN ST Shanelle Mullen, assembling machine operator Access Documentation (last 4 hours) [facility] Additional Procedures Row Name 02/25/242253 PICC Screening Questionnaire Order written on the chart for PICC insertion or placement? Y -ST Information form/Consent Obtained from POA/ Family N -ST Is there an order from Renal giving ok to place PICC line? N/A -ST Are there any location restrictions? Y -ST Which location is NOT accessible for line placement? UE superficial thrombus to left upper arm -ST Reason location not accessible for line placement Other (comment) superficial thrombus to L upper arm basilic vein -ST Does the patient have history of DVT or SVC syndrome? N -ST Does the patient currently have blood clots in chest / arms? Y superficial thrombus to L upper arm -ST Review of all IV meds/drips completed Yes -ST Patient allergies reviewed? Y -ST Labs Reviewed if applicable INR;Blood Cultures;Platelet count;Creatinine -ST Procedures Line Type PICC single -ST Time in 2234 Time out 2329 - Time Calculation (min) 55 min -ST Vascular Access Procedures PICC line assessment;PICC line placement;PICC dressing change;Education PICC/Midline -ST Peripheral IV 02/18/24 20 G Anterior;Distal;Left;Upper Arm IV Properties Placement Date: 02/18/24 -LD Placement Time: 558 -LD Type: Angiocath -LD Size (Gauge): 20 G -LD Location Orientation: Anterior;Distal;Left;Upper -LD Location: Arm -LD PICC Single Lumen 02/25/24 Non-tunneled Power Right Upper arm;Basilic Line Properties Placement Date: 02/25/24 -ST Placement Time: 2310 Catheter Time Out Checklist Completed: Yes -ST Hand Hygiene Performed: Yes -ST Site Prep: Chlorhexidine -ST Site Prep Agent has Completely Dried Before Insertion: Yes -ST All 5 Sterile Barriers or Appropriate Barriers Used (Gloves, Gown, Cap, Mask, Large Sterile Drape): Yes -ST Local Anesthetic: Injectable -ST, 2ml 1% Lidocaine Comfort Measures: Position of comfort -ST CVC Type: Non-tunneled -ST Power injectable: Power -ST Lumen # 1: #1 Purple, -ST Size (Fr): 4 -ST Orientation: Right -ST Location: Upper arm;Basilic -ST Technique: Modified seldinger;Standard insertion technique with peel away sheath;Internal stiffener stylet removed easily;Ultrasound used to locate and cannulate vein -ST Lot #: [id number] -ST Expiration Date: 01/29/25 -ST Trimmed Length (cm) : 39 cm -ST Line Tip Location : Central -ST Initial Extremity Circumference (cm): 30 cm -ST Circumference Reference Point: 9cm above insertion site -ST Initial External Length Catheter (cm): 0 cm -ST Placement Verification: Blood return;[place];ECG;X-ray -ST Line Secured by : Securement device -ST, secure port glue Inserted by: Radhames Rae RN - ST Assisted By: Aylin Mullen RN -ST Insertion attempts: 1 -ST Patient Tolerance: Tolerated well -ST Description (optional):4fr BARD SLm Power PICC -ST Site Assessment Clean and dry -ST External Length warren (cm) 0 cm -ST Extremity Circumference (cm) 30 cm -ST Dressing Type CHG Dressing -ST Dressing Status New;Clean, dry, intact;Occlusive -ST Dressing Change Due 03/03/24 -ST Observer Present Yes -ST Lumen #1 Status Blood return brisk;Capped - Needleless;Flushes easily -ST Lumen #1 Line Interventions Cap changed-Needleless device;Connections checked and tightened;Flushed-ST Line Necessity Reason Reviewed With Care Team Patient has history of poor peripheral vascular access with multiple failed attempts at PIV insertion -ST User Santana (r) = Recorded By, (t) = Taken By, (c) = Cosigned By Initials Name Yulisa Li RN Shanelle Mullen RN Plan: Follow up: R SL Power PICC ready to use Shanelle Mullen RN * David Saab MD - 02/18/2024 5:56 PM CDTAssociated Order(s): Arterial Line Insertion Post-Procedure Diagnose(s): Shock (CMS/HCC) (HCC) Arterial Line Insertion Date/Time: 02/18/2024 5:56 PM Performed by: David Saab MD Authorized by: David Saab MD [place] Protocol: RN Notified of Procedure: yes Informed consent: Risks, benefits, alternatives discussed and patient/labor relations representative/guardian agrees and accepts Patient's stated name/ matches armband: Yes Allergies confirmed: yes Consent form signed, dated, timed; matches correct patient, intended procedure and site: Yes Imaging: Pertinent imaging reviewed, correctly oriented and match to patient identifiers Lab/Diag test results: Pertinent lab/diag tests reviewed and match to patient identifiers Supplies, devices and special equipment are available: yes Site/side marked: yes Indications: hemodynamic monitoring Location: Left radial Anesthesia: Local infiltration Local anesthetic: Lidocaine 1% Patient skin preparation: chlorhexidine Ultrasound guidance: Real-time needle guidance and pre-procedure diagnostic Patient preparation: Cap, gloves, gown, handwashing, towels, mask and sterile probe cover Catheter gauge: 18 Single percutaneous needle puncture: Yes Seldinger technique used: Yes Number of attempts: 1 Post-procedure: Line sutured and dressing applied Post-procedure CMS: Unchanged Complications: no complications noted during insertion Post Procedure Debrief: All guidewires, needles, sponges or other items are accounted for: yes Any special post procedure monitoring, testing or other considerations: n/a All specimens identified, labeled and matched to patient identification: n/a Responsible libertarian for transporting specimen(s) to lab determined: n/a Cosigned by Ancelmo Kennedy MD at 02/18/2024 6:01 PM CDT Associated attestation - Ancelmo Kennedy MD - 02/18/2024 6:01 PM CDT I was present for the entire procedure. * David Saab MD - 02/18/2024 5:54 PM CDTAssociated Order(s): Central Line Insertion Post-Procedure Diagnose(s): Shock (CMS/HCC) (HCC) Central Line Insertion Date/Time: 02/18/2024 5:54 PM Performed by: David Saab MD Authorized by: David Saab MD [place] Protocol: RN Notified of Procedure: yes Informed consent: Risks, benefits, alternatives discussed and patient/labor relations representative/guardian agrees and accepts Patient's stated name/ matches armband: Yes Allergies confirmed: yes Consent form signed, dated, timed; matches correct patient, intended procedure and site: Yes Imaging: Pertinent imaging reviewed, correctly oriented and match to patient identifiers Lab/Diag test results: Pertinent lab/diag tests reviewed and match to patient identifiers Supplies, devices and special equipment are available: yes Site/side marked: n/a Immediately prior to the procedure a time out was called: a verbal verification by the procedure participants confirmed correct patient identity, correct site/side marked and visible (if applicable); agreement on procedure to be done; and correct patient positioning Have non- routine considerations been assessed?: Yes Indications: Vascular access and administer vasoactive medications Anesthesia (see MAR for exact dosage) Anesthesia method: Local infiltration Local anesthetic: Lidocaine 1% Patient position: Trendelenburg Skin preparation: Skin prepped with 2% chlorhexidine Provider preparation: Cap, full body drape, gloves and gown Location: Right internal jugular Ultrasound guidance: Real-time needle guidance and pre-procedure diagnostic Assessment: Blood return through all ports, free fluid flow and placement verified by x-ray Catheter type: Triple lumen Catheter size: 7 Fr Needle inserted, vein idenitified then guidewire inserted easily into vein: Yes Number of attempts: 1 Successful placement: Yes Line securement: Line sutured and dressing applied Post Procedure Debrief: All guidewires, needles, sponges or other items are accounted for: yes Any special post procedure monitoring, testing or other considerations: n/a All specimens identified, labeled and matched to patient identification: n/a Responsible libertarian for transporting specimen(s) to lab determined: n/a Cosigned by Ancelmo Kennedy MD at 02/18/2024 6:01 PM CDT Associated attestation - Ancelmo Kennedy MD - 02/18/2024 6:01 PM CDT I was present for the entire procedure. documented in this encounter Consult Notes * Nikky Duncan MD - 02/18/2024 2:28 PM CDT Images from the original note were not included. Infectious Disease Initial Consult Note Infectious Disease Team: Transplant Contact Information: Please see EPIC Treatment Team listing for up-to-date contact information. Requesting Physician: Ancelmo Kennedy* Reason for Consult: septic shock, hx OLT 1998, CVID/ITP s/p sleenectomy, PTLD Subjective Chief Complaint: SOB HPI: Mr. Lares is a 28 y.o. male with a history of refractory ITP s/p splenectomy in 2012, autoimmune hepatitis s/p liver transplant 03/30/19 c/b PTLD (c-Myc, EBV+) s/p CHOP x 1 (2016), DA-EPOCH-R x 5 (09/2017-12/2017) with IT MTX x/ C3 10/2017 achieving complete remission 12/2017 and CMV viremia consisting of subpopulations with heterogenous resistance (h/o ganciclovir, cidofovir, maribavir) currently on valgancyclovir and letermovir Recent admissions: 08/23/23-09/03/2023: Patient was admitted for abdominal liver enzymes cholestatic pattern with liver biopsy c/f T-cell mediated rejection setting of CVID. He was found to have E coli bacteremia treated with Zosyn> ceftriaxone> ciprofloxacin. Also noted to have new peribronchovascular opacities the right lung c/f potential organizing pneumonia. Patient was treated with foscarnet and valganciclovir for CMV viremia. CT 08/23/23: 10/03-10/30/2023: Patient presented with 1 week of productive , dyspnea on exertion, pleuritic chestpain and was initially found to have right-sided pneumonia at an outside hospital where he was discharged on doxycycline/Augmentin with progression of symptoms. Imaging during that admission showed development of partially loculated moderate right pleural effusion with increased small interlobular septal wall thickening and peribronchovascular consolidation c/f worsening organizing pneumonia super imposed with pulmonary edema/possible infectious pneumonia. Pneumonia PCR was only positive for rhinovirus/enterovirus. Patient was noted to have serum Aspergillus galactomannan of 0.67. Id was consulted regarding fungal coverage. He was treated with amoxicillin/clavulanic acid. Repeat Aspergillus g alactomannan obtained 3 days later was < 0.5. Chest tube was placed while hospital. Bacterial/fungal cultures on the pleural fluid was also negative. Patient followed up with outpatient ID. Follow-up chest CT on 12/03/2023 showed right lower lobe pneumonia, improvement right pleural effusion . The peripheral wedge-shaped lesion was more consistentwith lobar pneumonia rather than pulmonary infarction given absence of any large blood clots He also followed up with Dermatology for a newly developed red rash on his right leg which was pruritic and spreading to lower abdomen . Images available on media tab. Thought to be Pityriasis rosea vs PLC vs atopic dermatitis . Treated with topical steroids. No rash on examination 01/11/2024: The patient reported upper respiratory symptoms of 1 week with head congestion, sneezing, cough and night sweats. Patient was recommended to get chest x-ray, RVP etc. but he wanted to rest for a few days before returning to work. 02/07/24: Patient followed up with ENT for chronic sinusitis. Nasal endoscopy showed thick mucopurulent discharge, mild mucosal edema but no necrosis . Cultures grew MSSA. Patient was started on a 3 week course of levofloxacin by ENT. He reports improvement of sinus symptoms since then Current Presentation : Since 02/14/2024, patient has been experiencing worsening productive cough, malaise, headache. He is febrile here but noticed no fevers or chills at home. He does not have any new skin rash. Had painin the back of neck/head which has since resolved. He was coughing up yellow sputum with occasionalstreaks of blood. In the ED, patient found to be febrile to 38.8C, tachypneic (40), tachycardic (120s). Patient given tylenol and started on oxygen. Patient given IV fuids (a total of 3L after B/P started to drop andlactate back high). Significant Labs: Lactate 3.3 -> 3.4 -> 5, iCal 4, Cr 1.6, Na 127, BUN 26, tBili 3.9, Alk phos 175, AST 69, Mag 1.3, Phos 2.2, WBC 24.1, Hgb 12.7, Plt 94. RVP + for Rhinoviru s. Patient with CXR which shows right sided pneumonia. Patient then to CT and that shows left lowerlobe cavitary pneumonia and left pleural effusion. Patient started on Azithro, Cefepime, Flagyl, Vancomycin. Patient also started on norepinephrine for hypotension. Patient given Phos, Calcium, and magnesium repletion. Patient also given his home ursodiol, letermovir, and valganciclovir. Patient then admitted to the Oncology ICU for further management. Patient was awake, alert, on 1 pressor, 2 L of oxygen at the time of our evaluation. Comfortably speaking on 2 L. 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 Drinks well water. [place]. No h/o overt aspiration Past Medical History: No date: Cancer (CMS/HCC) (HCC) No date: Chronic diarrhea No date: CMV (cytomegalovirus infection) (HCC) 01/06/2019: Community acquired pneumonia of right middle lobe of lung No date: Generalized enlarged lymph nodes Comment: Lymphadenopathy, generalized - (Added by TW Conv) No date: History of non-Hodgkin's lymphoma Comment: History of non-Hodgkin's lymphoma - (Added by TW Conv) No date: Localized enlarged lymph nodes Comment: LAD (lymphadenopathy), mediastinal - (Added by TW Conv) No date: Other complications of unspecified transplanted organ and tissue Comment: PTLD (post-transplant lymphoproliferative disorder) - (Added by TW Conv) No date: PNA (pneumonia) No date: Pulmonary emboli (HCC) Past Surgical History: 02/02/2020: BIOPSY LIVER; N/A 05/22/2014: BIOPSY LYMPH NODE SUPERFICIAL; N/A 12/24/2021: EXCHANGE PICC LINE; Left 08/28/2022: FUNCTIONAL ENDOSCOPIC SINUS SURGERY 12/19/2021: IR PICC LINE PLACEMENT > 5 YEARS; N/A 12/26/2021: IR PICC LINE PLACEMENT > 5 YEARS; N/A 1998: LIVER TRANSPLANT 01/06/2019: OTHER SURGICAL HISTORY Comment: Excisional lymph node biopsy of neck No date: SPLENECTOMY 10/18/2018: US ABDOMEN COMPLETE W LIVER DOPPLER (C); Right 10/18/2018: US GUIDED BIOPSY LIVER; N/A 05/14/2020: US GUIDED BIOPSY LIVER; N/A 08/31/2022: US GUIDED BIOPSY LIVER; N/A 10/13/2019: US GUIDED BIOPSY LYMPH NODE SUPERFICIAL LEFT; N/A 10/07/2021: US GUIDED BIOPSY LYMPH NODE SUPERFICIAL LEFT; N/A HOME MEDICATIONS : Cutaquig 16.5 % solution furosemide (LASIX) 20 mg tablet [facility] heparin lock flush, porcine, letermovir (PREVYMIS) 480 mg tablet levoFLOXacin (LEVAQUIN) 500 mg tablet magnesium oxide (MAG-OX) 400 mg (241.3 mg elemental magnesium) tablet predniSONE (DELTASONE) 10 mg tablet spironolactone (ALDACTONE) 50 mg tablet tacrolimus 0.5 mg immediate-release capsule traZODone (DESYREL) 50 mg tablet triamcinolone (KENALOG) 0.1 % cream ursodioL (ACTIGALL) 300 mg capsule valGANciclovir (VALCYTE) 450 mg tablet Current Facility-Administered Medications Ordered in Epic Medication Dose Route Frequency Provider Last Rate Last Admin acetaminophen (TYLENOL) tablet 1,000 mg 1,000 mg oral Q6H PRN Lexa Constantino MD 1,000 mg at02/18/24 0750 azithromycin (ZITHROMAX) 500 mg/255 mL in sodium chloride 0.9% (premix) 500 mg 500 mg intravenous Q24H Lexa Marrero MD Stopped at 02/18/24 0824 cefepime (MAXIPIME) 2,000 mg/20 mL in sterile water (premix) 2,000 mg 2,000 mg intravenous Q8H Lexa Marrero MD 240 mL/hr at 02/18/24 1428 2,000 mg at 02/18/24 1428 Lactated Ringer's (LR) bolus 500 mL 500 mL intravenous Once Omar Bowen MD letermovir (PREVYMIS) tablet 480 mg 480 mg oral Daily Azucena Kang MD 480 mg at 02/18/24 0729 metroNIDAZOLE (FLAGYL) 500 mg/100 mL in sodium chloride (premix) 500 mg 500 mg intravenous Q8H PIPPA Omar Bowen MD 200 mL/hr at 02/18/24 1428 500 mg at 02/18/24 1428 norepinephrine in dextrose 5% (LEVOPHED) 8,000 mcg/250 mL (32 mcg/mL) infusion (premix) 0-2 mcg/kg/min intravenous Titrated Omar Bowen MD 10.72 mL/hr at 02/18/24 1121 0.09 mcg/kg/min at02/18/24 1121 ondansetron (ZOFRAN) injection 4 mg 4 mg intravenous Q6H PRN Lexa Constantino MD potassium, sodium phosphates (PHOS-NAK) 280-160-250 mg packet 2 packet 2 packet oral TID AC Omar Bowen MD 2 packet at 02/18/24 1240 predniSONE (DELTASONE) tablet 10 mg 10 mg oral Daily Lexa Constantino MD 10 mg at 02/18/24 0729 ursodioL (ACTIGALL) capsule 600 mg 600 mg oral Daily with dinner Azucena Kang MD valGANciclovir (VALCYTE) tablet 900 mg 900 mg oral BID Azucena Kang MD 900 mg at 02/18/24 0844 vancomycin 1,250 mg/262.5 mL in sodium chloride 0.9% (premix) 1,250 mg 1,250 mg intravenous Q12H Omar Bowen MD Current Outpatient Medications Ordered in [facility] Medication Sig Dispense Refill Cutaquig 16.5 % solution furosemide (LASIX) 20 mg tablet Take 2 tablets (40 mg total) by mouth daily 60 tablet 1 [facility] heparin lock flush, porcine, Infuse 5 mL (50 Units total) into a venous catheter as needed (LINE CARE) letermovir (PREVYMIS) 480 mg tablet Take 1 tablet (480 mg total) by mouth daily 30 tablet 5 levoFLOXacin (LEVAQUIN) 500 mg tablet Take 1 tablet (500 mg total) by mouth daily for 21 days 21 tablet 0 magnesium oxide (MAG-OX) 400 mg (241.3 mg elemental magnesium) tablet Take 1 tablet (400 mg total) by mouth 2 (two) times a day for 7 days Take while on foscarnet 14 tablet 0 predniSONE (DELTASONE) 10 mg tablet Take 40Mg PO for 3 days, then 30Mg PO for 3 days, then 20Mg PO for 3 days, then 10Mg PO for 3 days. 30 tablet 0 spironolactone (ALDACTONE) 50 mg tablet [...] (two) times a day 120 tablet 5 Anti-infectives (From admission, onward) Start Dose/Rate Route Frequency Ordered Stop 02/18/24 1800 vancomycin 1,250 mg/262.5 mL in sodium chloride 0.9% (premix) 1,250 mg 1,250 mg over 60 Minutes intravenous Every 12 hours 02/18/24 1239 02/18/24 0900 letermovir (PREVYMIS) tablet 480 mg 480 mg oral Daily 02/18/24 0559 03/26/24 0859 02/18/24 0900 valGANciclovir (VALCYTE) tablet 900 mg 900 mg oral 2 times daily 02/18/24 0559 03/19/24 0859 02/18/24 0801 metroNIDAZOLE (FLAGYL) 500 mg/100 mL in sodium chloride (premix) 500 mg 500 mg 200 mL/hr over 30 Minutes intravenous Every 8 hours scheduled 02/18/24 0800 02/18/24 0549 azithromycin (ZITHROMAX) 500 mg/255 mL in sodium chloride 0.9% (premix) 500 mg 500 mg 255 mL/hr over 60 Minutes intravenous Every 24 hours scheduled 02/18/24 0548 02/18/24 0548 cefepime (MAXIPIME) 2,000 mg/20 mL in sterile water (premix) 2,000 mg 2,000 mg 240 mL/hr over 5 Minutes intravenous Every 8 hours scheduled 02/18/24 0547 Active Lines/Ports/Devices: Peripheral IV 02/18/24 20 G Anterior;Distal;Left;Upper Arm (Active) Number of days: 0 Peripheral IV 02/18/24 20 G Right Antecubital (Active) Number of days: 0 Patient Allergies: No Known Allergies Social History Social History Narrative Living Situation: Residential institution 10/05/17 (Added by MARIN Conv) reports that he has never smoked. His smokeless tobacco use includes chew. He reports current drug use. Drug: Alcohol. Patient reports consuming alcoholic drinks monthly or less, with a daily consumption of drinks. Patient also reports monthly consumption of 6 or more alcoholic drinks at one occasion. Family history reviewed and non-contributory Family History Problem Relation Age of Onset Rectal cancer Mother Rectal cancer - (Added by MARIN Conv) No Known Problems Father Diabetes type II Sister Family history of type 2 diabetes mellitus - (Added by MARIN Conv) Anesthesia problems Other Review of Systems: Review of Systems All other systems reviewed and are negative. Objective Vitals: 24hr Min/Max: Temp Min: 36.3 ??C (97.3 ??F) Max: 38.8 ??C (101.8 ??F) Pulse Min: 78 Max: 122 BP Min: 82/68 Max: 128/87 Resp Min: 18 Max: 41 SpO2 Min: 92 % Max: 97 % Most Recent : Vitals: 02/18/24 1418 BP: 103/62 Pulse: 78 Resp: 28 Temp: 36.3 ??C (97.3 ??F) SpO2: 97% Vitals: 02/18/24 1415 02/18/24 1416 02/18/24 1417 02/18/24 1418 BP: 107/73 103/62 Pulse: 81 81 81 78 Resp: 24 28 28 Temp: 36.3 ??C (97.3 ??F) 36.3 ??C (97.3 ??F) 36.3 ??C (97.3 ??F) 36.3 ??C (97.3 ??F) TempSrc: SpO2: 97% 96% 97% 97% Weight: Height: No intake/output data recorded. Physical Exam: Physical Exam Vitals reviewed. Constitutional: General: He is not in acute distress. Cardiovascular: Heart sounds: Normal heart sounds. Pulmonary: Breath sounds: Rhonchi present. Comments: Bronchial breath sounds Abdominal: Palpations: Abdomen is soft. Skin: Findings: No rash. Neurological: Mental Status: He is oriented to person, place, and time. Lab/Radiology/Diagnostic Review: Reviewed Assessment/Plan Mr. Lares is a 28 y.o. 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 He has had multiple admissions in the recent past. In October 2023, was admitted for AHRF the setting of right-sided loculated pleural effusion, right-sided peribronchovascular consolidations c/f worsening organizing pneumonia VS infection. He had amarginally elevated serum galactomannan of 0.67 but repeat galactomannan in a few days was negative. Also fungal cultures on the pleural fluid showed no growth. Follow-up CT in December demonstrated improvement in pleural effusion and development of right lower lobar pneumonia which was treated with a 7 day course of doxycycline and Augmentin. He again had URI symptoms around 01/10 for which he received a 7 day course of Augmentin. He followed up with ENT on 02/06 for chronic sinusitis with nasal endoscopy cultures growing MSSA. He was started on a 3 week course of levofloxacin. He currently presents with malaise, shortness of breath, productive cough with streaks of blood, nausea starting 02/14/2024. Chest CT on 02/17 shows resolution the right pleural effusion and right base consolidation development Left lower lobe cavitary pneumonia and left pleural. Blood culture, fungal blood culture, Aspergillus galactomannan, serum cryptococcal antigen, Legionella antigen, urine Histoplasma antigen , CMV PCR in process. Respiratory pathogen panel positive for rhinovirus/enterovirus which has been persistently positive for long time. # immunocompromised patient: OLT (on tacrolimus, prednisone 10 mg) , splenectomy # cavitating LLL pneumonia: -Patient was initially on cefepime/vancomycin/Flagyl. Currently transitioned to linezolid plus Zosyn 4.5 g Q 6 hours -continue current coverage -no drug interactions with linezolid currently noted. -this presentation is most consistent with a bacterial pneumonia. However, given borderline elevated serum galactomannan during prior admission, some degree of immunosuppression-invasive fungal infections cannot be ruled out. If the patient is to decompensate clinically, recommend administering a single dose of liposomal amphotericin B 10mg/kg which would provide broad fungal coverage for severaldays while working up for fungal etiologies -please obtain a sputum culture and pneumonia PCR # h/o CMV viremia(no h/o tissue invasive disease) -patient has multiple resistance mutations noted in the past including to gancyclovir, cidofovir and maribavir. He is currently on valganciclovir 900 mg twice daily and letermovir 480 mg daily. Last CMV viral load undetectable on 01/01/2024. F/u CMV viral load -continue valganciclovir and letermovir for now Transplant ID will continue to follow Thank you for the opportunity to participate in the care of your patient. Please contact the Transplant Team ID fellow at the number listed under treatment team or AMION with any questions or concerns. Patient was seen and discussed with Dr. Foote, who helped formulate plan as noted above. Nikky Duncan MD Infectious Disease Today, I am treating the patient for pneumonia which can cause AHRF in the short-term future in theabsence of appropriate treatment, as described in the note., Reviewed notes from previous admissions to determine appropriate plan of care as in the note., and Estimated Creatinine Clearance: 75 mL/min (A) (by Cockcroft-Gault based on SCr of 1.38 mg/dL (H)). - reviewed; antibiotics recommended above are dosed accordingly. Cosigned by Severino Foote MD at 02/23/2024 10:48 AM CDT Associated attestation - Severino Foote MD - 02/23/2024 10:48 AM CDT I have seen and examined the patient on 02/18/2024. I agree with the findings and plan of care as documented in the resident's/fellow's note. Severino Foote MD 02/23/2024 10:48 AM documented in this encounter Nursing Notes * Yulisa Catalan RN - 02/25/2024 2:17 AM CDT Assumed care of pt at 2300, I agree with previous civil drafting technician. Vss, afebrile. Abx given, labs drawn. No replacements needed. PRN robitussin given x 1 for cough. Pt is resting in bed at the time of this note. documented in this encounter ED Notes * Azucena Kang MD - 02/18/2024 5:31 AM CDT HPI Chief Complaint Patient presents with Headache HPI History obtained from patient. 29-year-old male history autoimmune hepatitis s/p OLT (03/1999) c/b PTLD ( c-Myc, EBV+) s/p R-CHOP, EPOCH-R, last in 2018, CVID, ITP s/p splenectomy, transplant course complicated by chronic cholestasis with recurrent portal hypertension as well as difficult to treat CMV viremia/lymphadenitis (now on letermovir and valganciclovir), hypogammaglobulinemia on subcutaneous IgG presents with 3 days chills, cough productive of yellow and blood-streaked sputum, diffuse myalgias with headache, and shortness of breath. Patient reports history of chronic sinusitis for which he follows with ENT and had arecent flare of acute on chronic sinusitis seen at ENT on 02/06 and prescribed Levaquin. Has been adhered with Levaquin and reports that ENT recently called with results of swab from right maxillary sinus growing MSSA and patient was switched to Augmentin recently. He has been adherent with his antirejection medications. Reports nasal drainage that has been consistent over the past several weeks.Notes 3 days of right ear fullness. No measured fevers at home. No neck stiffness. Patient History: Patient Active Problem List Diagnosis Date Noted Subacute cough 11/29/2023 Edema of left lower extremity 10/11/2023 Parapneumonic effusion 10/11/2023 Acute superficial DVT of left upper extremity [...] 01/06/2019 Community acquired pneumonia 01/06/2019 Lymphadenopathy 01/06/2019 long term current use of immunosuppressive drug 01/06/2019 PTLD [...] Living Situation: Residential institution 10/05/17 (Added by TW Conv) Review of Systems Review of Systems As noted above in HPI. Physical Exam ED Triage Vitals [02/18/24 0457] Temp Pulse Resp BP SpO2 37.6 ??C (99.7 ??F) 119 18 99/54 97 % Temp src Heart Rate Source Patient Position BP Location FiO2 (%) Oral -- -- -- -- Height Height Method Weight Weight Method 1.727 m (5' 8 ) Stated 63.5 kg (140 lb) Stated Physical Exam Vitals and nursing note reviewed. Constitutional: Appearance: He is well-developed. Comments: Ill-appearing young man lying in bed. HENT: Head: Normocephalic and atraumatic. Comments: No tenderness to percussion of frontal or maxillary sinuses. Right Ear: A middle ear effusion is present. Tympanic membrane is erythematous. Left Ear: A PE tube is present. Nose: No rhinorrhea. Eyes: General: No scleral icterus. Conjunctiva/sclera: Conjunctivae normal. Neck: Comments: No meningismus. Cardiovascular: Rate and Rhythm: Regular rhythm. Tachycardia present. Heart sounds: No murmur heard. Pulmonary: Effort: Respiratory distress (mild) present. Comments: Speaking in full sentences. Tachypneic to low 30s. No retractions noted. Lungs with coarse rhonchi in all left-sided lung bai, right-sided lung bai clear to auscultation. Abdominal: General: There is no distension. Palpations: Abdomen is soft. Tenderness: There is no abdominal tenderness. There is no right CVA tenderness, left CVA tenderness, guarding or rebound. Negative signs include Jordan's sign. Comments: Well-healed surgical scar to abdomen Musculoskeletal: General: No swelling. Cervical back: Neck supple. Right lower leg: No edema. Left lower leg: No edema. Comments: No calf tenderness to palpation Skin: General: Skin is warm and dry. Capillary Refill: Capillary refill takes less than 2 seconds. Comments: Skin very warm to touch diffusely Neurological: Mental Status: He is alert. Psychiatric: Mood and Affect: Mood normal. MDM Medical Decision Making Amount and/or Complexity of Data Reviewed Labs: ordered. Decision-making details documented in ED Course. Radiology: ordered. Decision-making details documented in ED Course. ECG/medicine tests: ordered. Risk OTC drugs. Prescription drug management. Decision regarding hospitalization. 29-year-old male history autoimmune hepatitis s/p OLT (03/1999) c/b PTLD ( c-Myc, EBV+) s/p R-CHOP, EPOCH-R, last in 2018, CVID, ITP s/p splenectomy, transplant course complicated by chronic cholestasis with recurrent portal hypertension as well as difficult to treat CMV viremia/lymphadenitis (now on letermovir and valganciclovir) presents with 3 days chills, cough productive of yellow and blood-streaked sputum, diffuse myalgias with headache, and shortness of breath. Triage vitals notable for high normal temperature, tachycardia, low normal blood pressure, normal oxygen saturation on room air. On my initial evaluation patient is febrile to 100.6?? F, tachycardic to low 120s, tachypneic to low 30s, blood pressure with systolics in 1 teens, oxygen saturation hovering 91-93% with good waveform on room air. Immediately place patient on 2 L nasal cannula oxygen. Exam as noted above. Differential includes pneumonia versus sepsis versus less likely PE versus less likely atypical ACS versus viral URI versus bacteremia versus sinusitis Attending Summary of Care I have seen and examined the patient on 02/18/2024. I agree with the findings and plan of care as documented in the resident's note. ED Course as of 02/18/24 1410 Time: 02/17 549 Value: Temp(!): 38.1 ??C (100.6 ??F) Comment: (Reviewed) By: Lexa Constantino MD Time: 02/17 550 Comment: Reviewed echo from 08/23/2023: SUMMARY: Normal LV and RV systolic function. By: Lexa Constantino MD Time: 02/17 559 Comment: We have reviewed dispense report from recent ENT visit patient was prescribed prednisone taper, pr dispense report patient would be starting 10 mg daily for 3 days starting today which has been ordered. By: Lexa Constantino MD Time: 02/17 601 Comment: 29yoM h/o autoimmune hepatitis s/p OLT (03/1999) c/b PTLD ( c-Myc, EBV+) s/p R-CHOP, EPOCH-R, CVID on IVIg, ITP s/p splenectomy, chronic cholestasis with recurrent portal hypertension, CMV viremia/lymphadenitis on letermovir and valganciclovir p/w fevers, cough. Pt just switched from levaquin to augmentin by ENT for sinusitis, on a pred taper as well. Now having fevers, SOB. On exam, pt is febrile, ill appearing, nl wob but L sided crackles, R side clear. Abd soft, nontender, nondistended. Ext wwp. Pt will get ed sepsis protocol w/ broad spectrum abx, may limit fluids given h/o portalhypertension. By: Azucena Kang MD Time: 02/18 616 Value: Lactate(!): 3.3 Comment: (Reviewed) By: Lexa Constantino MD Time: 02/17 627 Value: Plt(!): 94 Comment: New compared to 3 months ago By: Lexa Constantino MD Time: 02/18 628 Comment: BP down trending. Reassessed pt. He is sleepy but otherwise has normal mentation: Answering questions appropriately, maintaining attention. Fluids and abx are running. We will continue to reassess. By: Lexa Constantino MD Time: 02/18 632 Comment: Patient tachypneic to low 40s. Maintaining oxygen saturations on 2-3 L nasal cannula support. Continues to have no accessory muscle usage. Continue to monitor closely, low threshold for high-flow nasal cannula for respiratory support in setting of presumed pneumonia. By: Lexa Constantino MD Time: 02/18 644 Value: Creatinine(!): 1.54 Comment: (Reviewed) By: Lexa Constantino MD Time: 02/17 645 Value: Sodium(!): 127 Comment: (Reviewed) By: Lexa Constantino MD Time: 02/17 647 Value: Creatinine(!): 1.54 Comment: From baseline around 0.8. By: Lexa Constantino MD Time: 02/17 647 Value: Bilirubin, total(!): 3.9 Comment: Up from 2.4, 3 months ago. By: Lexa Constantino MD Time: 02/17 650 Value: XR Chest 1 Vw Portable Comment: Chest x-ray per my independent interpretation concerning for left lower lobe consolidationversus effusion. Getting CT chest to evaluate further. By: Lexa Constantino MD Time: 02/18 704 Comment: TRANSITION OF CARE: 29 y.o. male with complex hx incuding autoimmune hepatitis s/p OLT (99) c/b PTLD s/p chemo (last [id number]), CVID (on IVIG), refractory CMV viremia (on daily letermovir, valganciclovir), ITP s/p splenectomy, chronic cholestasis,portal HTN, here with 3 days of fevers, cough with blood streaked sputum,myalgias, MANUEL, SOB. Does have chronic sinusitis, rxed levaquin on 02/06, cx growing MSSA then switchedto Augmentin. Here is tachycardic, febrile, soft BPs, tachypneic with 2-3L oxygen requirement. Diffuse rhonci on exam, CXR c/f RLL pneumonia Pending: CT chest Dispo: admit ICU vs floor By: Omar Bowen MD Time: 02/17 0790 Value: Rhinovirus/Enterovirus RNA(!): Detected Comment: (Reviewed) By: Lexa Constantino MD Time: 02/17 0751 Comment: Re-evaluation - freuqent coughing fits in the room, but breathing comfortably in between on 2L nasal cannula. Able to sustain conversation. Plan to reach out to oncology fellow to discuss admission to the floor as I feel currently he does not require an ICU, as well as obtain any further re commendations By: Omar Bowen MD Time: 02/17 1017 Value: Lactate(!): 3.4 Comment: Uptrending despite fluids By: Omar Bowen MD Time: 02/17 1033 Comment: MAP 60-65 despite 3L of IV fluids, starting peripheral Levo and reach out to onc ICU for admission. By: Omar Bowen MD Time: 02/17 0586 Comment: IMPRESSION: Interval development of left lower lobe cavitary pneumonia with a left pleural effusion that has increased in size compared to the prior study. Compared to prior study, right basilar pneumonia has resolved with decrease in right pleural effusion. By: Omar Bowen MD Time: 02/17 665 Comment: No current beds on 7800, we will reach out to [facility] By: Omar Bowen MD Time: 02/17 105 Comment: Call Back from 7800, bed now available will accept patient By: Omar Bowen MD Time: 02/17 3687 Comment: Re-evaluation - resting comfortably, still tachypneic. General at bedside with approximately 225 cc urine output since started shift. By: Omar Bowen MD Pneumonia of left lung due to infectious organism, unspecified part of lung Sepsis with acute hypoxic respiratory failure, due to unspecified organism, unspecified whether septic shock present (HCC) Thrombocytopenia (HCC) Hyponatremia WATSON (acute kidney injury) ([facility]) Lexa Constantino MD Resident 02/18/24 1270 Lexa Constantino MD Resident 02/18/24 0750 Azucena Kang MD 02/21/24 1607 * Omar Colorado RN - 02/18/2024 5:12 AM CDT Bed: ED1-15 Expected date: Expected time: Means of arrival: Comments: Ben Lares Nicholas Allen, RN 02/18/24 0512 * Omar Colorado RN - 02/18/2024 4:54 AM CDT Pt arrives to ED r/t flu-like s/s, endorsing MANUEL, fatigue, cough, and congestion. [facility] liver transplant in 1998, denies any falls/injuries, denies CP/SOB, GCS 15 documented in this encounter Miscellaneous Notes * Plan of Care - Ileana Joseph RN - 02/26/2024 1:56 PM CDT 02/26/24 1354 Discharge Summary Discharge Disposition Private residence Equipment/Provider Needs Home Provider Services Needs Identified Home Care Agency Information Home Care Agency Type #1: Care Home;Home Infusion Home Care Agency Name [facility] and Home Care Agency Phone Number Home infusion - [phone] Home Care Agency Contact Spoken to [facility] Order Faxed to [facility] Second Home Care Agency Used? Not Needed Discharge Additional Assistance Does the patient need discharge transport arranged? No Post Discharge Care Provider Post Discharge Care Plan DC Summary has been faxed to next level of care provider (see Follow Up Providers) Per medical team, patient is medically stable for discharge at this time. Follow up appointment hasbeen scheduled for 03/20/24. Transportation will be provided by family. Patient and/or family are agreeable with the plan. If any further discharge needs arise, please contact the covering social work case manager. * Plan of Care - Kaelyn Cortez RN - 02/26/2024 1:43 PM CDT Goals: Clinical Goals for the Shift: vss, abx, rest Intermediate Patient Centered Goal for Treatment: DC home with home IV ABX Summary: A&Ox4. VSS. Up ad deonte. PICC line flushed, anx given. Discharge orders, education completed. * Plan of Care - Lynne Sifuentes RN - 02/26/2024 5:20 AM CDT Goals: Clinical Goals for the Shift: vss, abx, rest Intermediate Patient Centered Goal for Treatment: DC home with home IV ABX Summary: Vital signs monitored, pt denies pain, PICC placed, scheduled antibiotics administered, and no lab replacements. Comfort and safety measures observed. Plan of care ongoing. * Plan of Care - Kaelyn Cortez RN - 02/25/2024 7:12 PM CDT Goals: Clinical Goals for the Shift: vss, abx, rest Hand Shoe Cutter Patient Centered Goal for Treatment: DC home with home IV ABX Summary: A&Ox4. VSS. No complaints of pain. Awaiting PICC. Up ad deonte. Bed in low locked position. Call light within reach. Will continue to monitor. * Plan of Care - Ileana Joseph RN - 02/25/2024 2:19 PM CDT Per Medical Chart/Rounds/IDR: Final ID recommendations have been made. Patient to get PICC line today for home IV antibiotics. Education complete. ADD: 02/26/24 Plan/referrals made/in place: [facility] with HH has accepted and will deliver IV supplies to home after midday dose on 02/16/24. SOC will be 02/29/24. Support following discharge: Family Transportation: Family F/U Appointments: 03/20/24 with infectious disease. Plan for weekend discharge: Patient to discharge home Wednesday after mid day dose of antibiotics. Home infusion aware. Please notify [place] electronic organ technician prior to discharge for confirmation of home delivery ofsupplies. For weekend assistance, please check the treatment team in [place] for the assigned social work case manager or contact the weekend Case Management phone * Summary of Treatment Recommendations Non-Billable - La Baxter COORDINATOR OF PLACEMENT - 02/25/2024 12:03 PM CDT Images from the original note were not included. Infectious Diseases Sign Off Recommendations for Patients on Intermediate IV Antibiotics Diagnosis: MSSA bacteremia, pneumonia, sinusitis Retained Infected Hardware: No Site of Infection(s): blood, sinuses, & lungs Organism(s): MSSA Antibiotics Start Date: 02/22/24 PMD: BMT Infectious Disease Team: Transplant Infectious Disease Attending: Angelique Medication Recommendations: Drug(s): Cefazolin 2g IV Q 8 Firm Stop (Yes/No): No Anticipated Stop Date (note, the following date does not imply an order to stop on that date): ~ 6 wks from 02/22/24 Labs/Frequency to be Monitored: CBC once a week and CMP once a week Imaging Recommended Before Follow Up: No Summary of Consultation: 29 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 Found to have septic shock with MSSA bacteremia, pneumonia, and sinusitis. Pt was seen in ENT clinic (02/06) and endoscope showed thick mucopurulent drainage bilaterally. Started on Levaquin x 3 wks and Prednisone x 12 days. R maxillary swab (02/06) grew MSSA. He presented to ED (02/17) with worsening headaches, fatigue, cough. BC (02/23) NGTD x 2 (02/22) S. Capitis 1/2 (02/21) NGTD x 2 (02/20) MSSA 1/2 (02/19) neg x 1 (02/18) MSSA 2/2 (02/17) MSSA 2/2 CT (02/18) showed new LLL cavitary pneumonia with L pleural effusion, increased c/t (12/03/23), decreased R pleural effusion & sputum cx (02/18) grew MSSA. TTE (02/20) showed no obvious valvular vegetations with fair imaging resolution. Will plan at least 6 wks of Cefazolin for MSSA bacteremia, sinusitis, pneumonia. Plan repeat Chest CT in ~ 3-4 wks. Follow Up Plan: fax results to [phone], follow up with Dr. Duncan in 3 wks, After discharge additional questions can be directed to the clinic at [phone], Patient has been educated about the risks and benefits of IV antibiotics (OPAT), and ID clinic will arrange f/u Important Information for Healthcare Providers: Antibiotic Plan: Antibiotics: Cefazolin Anticipated stop date for IV antibiotics: ~ 6 wks from February 21 Infectious disease physician that saw the patient during hospital admission: Angelique Looney Laboratory Monitoring: Weekly CBC, CMP ALL RESULTS SHOULD BE FAXED TO INFECTIOUS DISEASE CLINIC AT: [phone] PLEASE CALL THE INFECTIOUS DISEASES CLINIC WITH ANY QUESTIONS AT: [phone] Leaving the Hospital on IV Antibiotics Information for Patients and Families Infectious Diseases Because of your infection, you must be treated with antibiotics by vein (IV). Timing is important! You should receive antibiotics on a regular schedule and not skip doses. This will give your body enough antibiotic to fight your infection. Finishing is important! You must finish all antibiotics unless told otherwise by your doctor. Taking all of your antibiotics will help get rid of your infection and prevent resistance to antibiotics. What to expect Labs: A nurse will draw your blood about 1-2 times each week. Labs help us monitor your infection and watch out for antibiotic side effects. Telephone calls: You will be receiving lots of phone calls! People who will need to contact you include the infectious disease clinic, home health nurses, home infusion team (antibiotic providers), pharmacists, and doctors. Please make sure we have a working phone number for you so you can receive these calls that are important for your health Please make sure your voicemail is set up AND has space for us to leave a message (just in case we miss you!) Catheter and Wound care Always wash hands with antibacterial soap and use alcohol-based hand home assessment nurse before touching yourcatheter or changing wound dressings. When drying hands, only use a clean paper towel. Don't forget to scrub the ???hub?? (tip of your catheter)! Do this with an alcohol wipe before each use. Scrub for 30 seconds (minimum) and allow to dry without blowing on it or waving your hand across it. Refer to your home care service's instructions for taking care of your IV line and hooking up your antibiotics. Follow-up Appointment Keeping your follow-up appointment is very important! Below are things that may happen or be decided at your infectious diseases clinic appointment. Look at the infection site and IV to look for problems Determine how long you need to be on IV antibiotics Prescribe oral (pill) antibiotics after finishing IV antibiotics if needed Depending on how you are doing, we may order additional blood work or imaging tests to evaluate your infection Arrange for your IV line to be removed when the IV antibiotics are completed Questions or Concerns?? Below are reasons to call the Infectious Diseases Clinic RIGHT AWAY! 1. Watery diarrhea more than 3 times in 24 hours. 2. Nausea, vomiting, and/or belly pain 3. Rash and/or itching 4. Chills 5. Drenching night sweats 6. Fever >100.3 7. Increasing redness and/or drainage from a wound 8. Confusion or personality changes 9. Antibiotic catheter problems. Based on your symptoms, we may be able to help you over the phone or have your home health nurse help you. In some cases, you may need to go to the Emergency Room. Contact Infectious Diseases Clinic: Toll-free: [phone] Hospital ID Doctor: Angelique Smith [facility] Infectious Diseases Offices [facility] [address], [address] [place] [address] Patient parking available north of building [facility] General Infectious Diseases and [facility] Offices [facility] ID Clinic [address] [place] [address] [facility] ID Clinic [address] [place] [address] * Plan of Care - Polly Pinzon RN - 02/24/2024 9:34 PM CDT Goals: Clinical Goals for the Shift: VSS, IV ABX, rest, ensure safety, I&O, NPO at FL for PICC placement tomorrow Hand Shoe Cutter Patient Centered Goal for Treatment: DC home with home IV ABX Summary: Problem: Discharge Planning Goal: Understanding discharge needs will improve Outcome: Ongoing Problem: Respiratory Description: Patient will wean off oxygen and decrease coughing Goal: Patient's airway will be maintained Outcome: Ongoing Goal: Achieves optimal ventilation and oxygenation Outcome: Ongoing Goal: Ability to maintain a clear airway will improve Outcome: Ongoing Problem: Cardiovascular Description: Will wean off norepinephrine and maintain MAP >65 Goal: Vital signs and blood gases are within patient's accepted norms Outcome: Ongoing Problem: Gastrointestinal Goal: Maintains adequate nutritional intake Outcome: Ongoing * Plan of Care - Clementine Stone RN - 02/24/2024 5:36 PM CDT Goals: Clinical Goals for the Shift: VSS, abx, rest, comfort, meds Hand Shoe Cutter Patient Centered Goal for Treatment: return to baseline Summary: Robitussin x2. NPO at midnight. VSS. Resting comfortably in bed. Call light within reach. Problem: Discharge Planning Goal: Understanding discharge needs will improve Outcome: Progressing Problem: Respiratory Description: Patient will wean off oxygen and decrease coughing Goal: Patient's airway will be maintained Outcome: Progressing Goal: Achieves optimal ventilation and oxygenation Outcome: Progressing Goal: Ability to maintain a clear airway will improve Outcome: Progressing Problem: Cardiovascular Description: Will wean off norepinephrine and maintain MAP >65 Goal: Vital signs and blood gases are within patient's accepted norms Outcome: Progressing Problem: Gastrointestinal Goal: Maintains adequate nutritional intake Outcome: Progressing * Plan of Care - Kristine Julian RN - 02/24/2024 2:05 PM CDT Visited with patient bedside at approximately 1:10 - 1:30 pm today and had discussion re home infusion patient/caregiver responsibilities. Provided hands on training with IV Push and elastomeric equipment, including storage, preparation, administration, trouble shooting, aseptic technique, where to call/what to do for problems, as well as flushing 2nd line with saline, heparin and Curos capping. Patient verbalizes understanding, asks appropriate questions, successfully performs return demonstration. Pt informed that [facility] Home Care will be home care provider for labs and line care. Pt instructed on day of discharge, will have mid-day dose of IV medication in-house before leaving the hospital, and infusion meds/supplies will be delivered to home by job compositor later in the day. Pt verbalizes understanding. Provided all relevant phone numbers for support and assistance. Patient aware he is awaiting a clear blood culture before PICC line is placed and he can be discharged with home infusion. Patient prepared and experienced with a variety of home infusion devices. Patient aware currently holding for a Tuesday 02/27 discharge with Wednesday 02/28 Home Health start of care. Dates can be adjusted pending blood culture results. Informed Case Management. Provided educational material and link to instructional video to reinforce teaching on infusion procedure. 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 VSS. Room air. Feeling well. No back pain. Objective Current Facility-Administered Medications: acetaminophen (TYLENOL) tablet 1,000 mg, 1,000 mg, oral, Q6H PRN, La Granger NP, 1,000 mg at 02/19/24 0907 Carrier Fluids for Secondary Infusion - 0.9% Sodium Chloride, 30 mL, intravenous, PRN, Keri Reed MD ceFAZolin (ANCEF) 2,000 mg/20 mL in sterile water (premix) 2,000 mg, 2,000 mg, intravenous, Q8H PIPPA, Nikky Duncan MD, 2,000 mg at 02/24/24 0527 dextromethorphan-guaiFENesin (ROBITUSSIN-DM) 2-20 mg/mL syrup 10 mL, 10 mL, oral, QID PRN, oRxann Craft MD, 10 mL at 02/23/24 1131 enoxaparin (LOVENOX) syringe 40 mg, 40 mg, subcutaneous, Daily-2100, La Granger NP,40 mg at 02/23/242058 guaiFENesin ER (MUCINEX) extended release tablet 600 mg, 600 mg, oral, BID, La Granger NP, 600 mg at 02/23/242057 ipratropium-albuteroL (DUO-NEB) 0.5-2.5 mg/3 mL nebulizer solution 3 mL, 3 mL, nebulization, Q6H PRN (RT), Roxann Craft MD letermovir (PREVYMIS) tablet 480 mg, 480 mg, oral, Daily, La Granger NP, 480 mg at 02/23/24 0843 magnesium sulfate 4 g/100 mL in water (premix) 4 g, 4 g, intravenous, Q4H PRN, Keri Reed MD magnesium sulfate 6 g in sodium chloride 0.9% 250 mL IVPB, 6 g, intravenous, Q4H PRN, Keri Reed MD ondansetron (ZOFRAN) injection 4 mg, 4 mg, intravenous, Q6H PRN, La Granger NP perflutren protein-a (OPTISON) 3 mL in sodium chloride 0.9% 8 mL syringe, 1-8 mL, intravenous, Oncein imaging, La Granger NP potassium chloride ER (KLOR-CON) extended release tablet 40 mEq, 40 mEq, oral, Q2H PRN, Keri Reed MD sodium chloride 0.9% flush 0.5-20 mL, 0.5-20 mL, intra-catheter, Q8H PIPPA, Keri Reed MD, 10 mL at 02/24/24 0433 sodium chloride 0.9% flush 0.5-20 mL, 0.5-20 mL, intra-catheter, PRN, Keri Reed MD sodium chloride 0.9% infusion, 30 mL/hr, intravenous, Continuous PRN, La Granger NP sodium phosphate - potassium phosphate (K-PHOS NEUTRAL) tablet 500 mg, 500 mg, oral, Daily PRN, Keri Reed MD tacrolimus immediate-release capsule 0.5 mg, 0.5 mg, oral, Q48H, La Granger NP, 0.5mg at 02/23/24 0843 ursodioL (ACTIGALL) capsule 600 mg, 600 mg, oral, Daily with dinner, La Granger NP,600 mg at 02/23/24 1800 valGANciclovir (VALCYTE) tablet 900 mg, 900 mg, oral, BID, [place], La Leshara, COORDINATOR OF PLACEMENT, 900 mg at02/23/242057 Temp: [36.4 ??C (97.6 ??F)-36.7 ??C (98 ??F)] 36.7 ??C (98 ??F) Pulse: [72-94] 94 Resp: [17-19] 19 BP: (108-110)/(55-62) 108/55 Physical Exam: General appearance: well appearing Head: Normocephalic, without obvious abnormality Eyes: conjunctivae/corneas clear Lungs: decreased Chest wall: normal Heart: RRR Abdomen: Soft, non-tender, + bowel sounds : no dysuria Extremities: no edema Skin: No rashes or lesions Neurologic: Alert and oriented x4, non-focal Lab/Radiology/Diagnostic Review: Recent Labs Lab Units 02/24/24 0358 WBC K/cumm 9.8 HEMOGLOBIN g/dL 10.7* HEMATOCRIT % 28.6* MCV fL 99.3* MCH pg 37.2* MCHC g/dL 37.4* RDW CV % 18.7* RDWSD fL 63.4* MPV fL 13.4* NEUTROS ABS K/cumm 4.3 LYMPHS PCT % 33.9 Recent Labs Lab Units 02/24/24 0358 SODIUM mmol/L 139 POTASSIUM PLASMA mmol/L 4.0 CO2 mmol/L 25 BUN SERUM mg/dL 23 GLUCOSE mg/dL 135 CREATININE mg/dL 0.81 CALCIUM mg/dL 7.5* CHLORIDE mmol/L 109 ALBUMIN g/dL 2.2* AST Units/L 48 ALT Units/L 12 ALK PHOS Units/L 171* BILIRUBIN TOTAL mg/dL 2.9* TOTAL PROTEIN g/dL 4.4* ANIONGAP mmol/L 5 Micro: BC (02/22) GPC x 2 (02/21) NGTD x 2 (02/20) MSSA 1/2 (02/19) neg x 1 (02/18) MSSA 2/2 (02/17) MSSA 2/2 Imaging review: Assessment & Plan: 1) Septic shock with MSSA bacteremia - associated with fever, leukocytosis, tachycardia, hypotension requiring pressors - associated with MSSA sinusitis & pneumonia - BC MSSA (02/17, 02/18), neg (02/19), MSSA (02/20), NGTD (02/21), GPC (02/22) - CVC placed (02/17), removed (02/19) - TTE (02/20) no obvious valvular vegetations with fair imaging resolution - Recommend * continue Cefazolin * repeat BC x 2 today * check VIDYA * see if pleural effusions could be drained 2) Sinusitis - seen by ENT clinic (02/06). Endoscope noted thick mucopurulent drainage bilaterally. Started on Levaquin x 3 wks and Prednisone x 12 days - R maxillary swab (02/06) MSSA - Recommend * continue Cefazolin as above 3) Pneumonia - CT (02/18) new LLL cavitary pneumonia with L pleural effusion, increased c/t (12/03/23), decreased Rpleural effusion - Sputum (02/18) MSSA - Recommend * continue Cefazolin as above * will plan repeat CT in ~ 3-4 wks Discussed abx & plan of care with BMT & Dr. Angelique Baxter, DNP, ANP- - M-F 8am-4pm (ID Transplant Fellow: [phone]) Today, I am treating the patient for bacteremia which can cause sepsis/ in the short-term future in the absence of appropriate treatment, as described in the note. Discussed management of abx with BMT. CrCL- reviewed; antibiotics recommended above are dosed accordingly. The patient is being intensively monitored for antimicrobial toxicity from Cefazolin with the following tests: CBC, CMP weekly for renal & hepatic toxicity & leukopenia/anemia * Plan of Care - Lisandra Waggoner RN - 02/23/2024 9:18 PM CDT Problem: Discharge Planning Goal: Understanding discharge needs will improve Outcome: Progressing Problem: Respiratory Description: Patient will wean off oxygen and decrease coughing Goal: Patient's airway will be maintained Outcome: Progressing Goal: Achieves optimal ventilation and oxygenation Outcome: Progressing Goal: Ability to maintain a clear airway will improve Outcome: Progressing Problem: Cardiovascular Description: Will wean off norepinephrine and maintain MAP >65 Goal: Vital signs and blood gases are within patient's accepted norms Outcome: Progressing Problem: Gastrointestinal Goal: Maintains adequate nutritional intake Outcome: Progressing Goals: Clinical Goals for the Shift: VSS, abx, blood cultures, comfort, rest Intermediate Patient Centered Goal for Treatment: return to baseline Summary: * Plan of Care - Clementine Stone RN - 02/23/2024 6:26 PM CDT Goals: Clinical Goals for the Shift: VSS, abx, blood cultures, comfort, rest Intermediate Patient Centered Goal for Treatment: return to baseline Summary: Robitussin x2. Blood cultures x2 drawn. Continuing IV antibiotics. VSS. Resting comfortably in bed. Call light within reach. Problem: Discharge Planning Goal: Understanding discharge needs will improve Outcome: Progressing Problem: Respiratory Description: Patient will wean off oxygen and decrease coughing Goal: Patient's airway will be maintained Outcome: Progressing Goal: Achieves optimal ventilation and oxygenation Outcome: Progressing Goal: Ability to maintain a clear airway will improve Outcome: Progressing Problem: Cardiovascular Description: Will wean off norepinephrine and maintain MAP >65 Goal: Vital signs and blood gases are within patient's accepted norms Outcome: Progressing Problem: Gastrointestinal Goal: Maintains adequate nutritional intake Outcome: Progressing * Plan of Jan[place] - Kristine Julian RN - 02/23/2024 1:17 PM CDT Infusion referral received. Will need to assess patient and/or family for home infusion appropriateness, verify benefits for home infusion, and educate patient/family on home infusion process. Referrals are processed between 8am - 4:30pm Wednesday - Wednesday. For after hour emergencies please call [phone]. Any referrals received after 4pm will be processed the next day. For discharge planning purposes please keep in mind that referrals can take 24 or more hours to process. Thank You Maritza Julian RN MSN [facility] [phone] * Plan of Care - Ileana Joseph RN - 02/23/2024 11:55 AM CDT Per Medical Chart/Rounds/IDR: Patient will require IV antibiotics at discharge. ADD: 02/25/24 Plan & referrals made/in place: [facility] to [facility] Home Infusion Support following discharge: Family Transportation: Family F/U Appointments: To be made closer to discharge. Patient's Identified Problem/Goal Problem: Ensure acute medical needs are met and that patient has a safe discharge plan. Goal: Secure a discharge plan that patient/family are agreeable with and ensure patient has continuum of care. Patient and/or family are agreeable with plan. family independence case manager will continue to follow and assist with discharge planning as needed. If any further discharge needs arise, please contact the covering social work case manager. * Initial Assessments - La Silverman LCSW - 02/23/2024 10:04 AM CDT Social Work Assessment Clinical Dx: Pneumonia of left lung due to infectious organism, unspecified part of lung Past Medical History: Date of last inpatient admission: Previous admit date: 10/03/2023 Number of inpatient admissions in past year: 4 Reason for Current Hospitalization (Pt/Caregiver Stated): Pneumonia (02/23/24 1000) Patient Information: Information Obtained From: Chart review and patient Marital Status: Not Does Pt have Legal Guardian, Surrogate Decision Maker or Healthcare Agent?: Yes- patient stated Patient Stated Surrogate Name/Phone: Héctor Tao ([phone]) 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 Race: White/ Ethnicity: Non- Gender Identity: Male Service: None (02/23/24999) Current Situation: Living Arrangements: Parents and sister Type of Residence: Private residence Income: Employed Current Transportation: Own vehicle, Family/friends (02/23/24 1000) Legal History: Legal Information: No legal issues (02/23/24999) Support Systems and Spirituality: Support System: Parent, Other family members Parent Name/Contact Information: MotherBrooklynn ([phone]) and dad, Theodore Lares ([phone]) Other Family Member Name/Contact Information: Héctor Tao ([phone]) Do you have a Mosque Preference or Affiliation?: Yes Preference/Affiliation: Scientology Are there any Mosque Practices that are important to maintain while admitted?: No Do you have Cultural Factors that are important to you?: No (02/23/24999) Strengths, Assets, Liabilities and Stressors: Strengths (Must Choose Two): Exercising self-direction, Interpersonal relationships and supports,i.e., family, friends, peers, Access to housing/residential stability, Financial stability Patient Assets: Insured, Transportation, MD, Employed, Home, Income, Supportive family Does Pt have access to Employee Assistance Program: Yes Patient Barriers: Poor physical health Current Stressors: Chronic illness (02/23/24999) SDOH Transportation Needs: No Transportation Needs (02/23/2024) PRAPARE - Transportation Lack of Transportation (Medical): No Lack of Transportation (Non-Medical): No Financial Resource Strain: Low Risk (02/23/2024) Overall Financial Resource Strain (CARDIA) Difficulty of Paying Living Expenses: Not very hard Housing Stability: Low Risk (02/23/2024) Housing Stability Vital Sign Unable to Pay for Housing in the Last Year: No Number of Places Lived in the Last Year: 1 Unstable Housing in the Last Year: No Social Connections: Moderately Isolated (02/23/2024) Social Connection and Isolation Panel [NHANES] Frequency of Communication with Friends and Family: More than three times a week Frequency of Social Gatherings with Friends and Family: More than three times a week Attends Mosque Services: 1 to 4 times per year Active Member of Clubs or Organizations: No Attends Club or Organization Meetings: Never Marital Status: Never Food Insecurity: No Food Insecurity (02/23/2024) Hunger Vital Sign Worried About Running Out of Food in the Last Year: Never true Ran Out of Food in the Last Year: Never true Tobacco Use: High Risk (02/11/2024) Patient History Smoking Tobacco Use: Never Smokeless Tobacco Use: Current Passive Exposure: Not on file Alcohol Use: Alcohol Misuse (09/01/2023) AUDIT-C Frequency of Alcohol Consumption: Monthly or less Average Number of Drinks: 5 or 6 Frequency of Binge Drinking: Monthly Current/Former Smokers - Passive Exposure Questions Responses Current/Former Smoker - passive exposure (e.g., household member smoking)? No E-Cigarette/Vaping Questions Responses E-cigarette/Vaping Use Never User Substance Abuse, Mental Health, and Trauma History: Chemical Dependency: No concerns noted Mental Health: No concerns noted (02/23/24 1000) Risk to Self and Others: Violence risk to self in past 6 months?: No Self Harm/Suicidal Ideation Plan: No Violence risk to others in past 6 months?: No Any lifetime risk of violence to others?: No Current Plans to Harm Another: No (02/23/24 1000) Impressions and Recommendations: Beka Lares is a 29 y/o M with PMH of [facility] s/p OLT (03/1999) c/b PTLD (c-Myc, EBV+) s/p R-CHOP, EPOCK-R, last in 2018, CVID, ITP s/p splenectomy, chronic sinusitis (recently on levaquin -> then augmentin because swab returned with MSSA), chronic cholestasis with recurrent portal hypertension, 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 SW was consulted for high risk for readmission. Predictive Model Details 26% (High Risk) Factor Value Calculated 02/23/2024 10:04 16% Number of active inpatient medication orders 29 Risk of Unplanned Readmission Model 9% Number of ED visits in last six months 2 8% Number of hospitalizations in last year 2 8% ECG/EKG order present in last 6 months 8% Latest calcium low (7.6 mg/dL) 6% Encounter of ten days or longer in last year present 6% Diagnosis of electrolyte disorder present 6% Charlson Comorbidity Index 6 5% Imaging order present in last 6 months 5% Latest hemoglobin low (10.7 g/dL) 5% Phosphorous result present 4% Current length of stay 4.981 days 4% Diagnosis of deficiency anemia present 4% Active anticoagulant inpatient medication order present 4% Active corticosteroid inpatient medication order present 2% Age 29 2% Future appointment scheduled SW met with patient. Patient was sitting in the chair and presented as A&Ox 4, pleasant, and forthcoming with information. Discussed bills, housing, food, transportation, and social support. Patient lives with his parents and sister. Patient is employed full-time. Patient transports himself to medical appointments. Patient denied mental health concerns. Patient verbally appointed his brother, Héctor Lares ([phone]), to serve as his surrogate decision maker. MCKENZIE Giang, TUBE BUFFER * Hospital Course - Roxann Craft MD - 02/23/2024 8:54 AM CDT Acute respiratory failure with hypoxia (CMS/HCC) (HCC) [...] Continued on valganciclovir and letermovir during admission. History of liver transplant (CMS/HCC) (HCC) Pt w/ autoimmune hepatitis, s/p OLT 03/1999 c/b PTLD and now has CVID (on IVIG). Liver transplant team consulted and followed during admission. History of pulmonary embolus (PE) Remote. No longer on a/c. Chronic pansinusitis Follows w/ ENT as outpatient. Most recently completed outpatient course of levofloxacin -> augmentin. MRSA nares negative. * Plan of Care - Scarlet Moreno RN - 02/23/2024 6:03 AM CDT Problem: Discharge Planning Goal: Understanding discharge needs will improve Outcome: Progressing Problem: Respiratory Description: Patient will wean off oxygen and decrease coughing Goal: Patient's airway will be maintained Outcome: Progressing Goal: Achieves optimal ventilation and oxygenation Outcome: Progressing Goal: Ability to maintain a clear airway will improve Outcome: Progressing Problem: Cardiovascular Description: Will wean off norepinephrine and maintain MAP >65 Goal: Vital signs and blood gases are within patient's accepted norms Outcome: Progressing Problem: Gastrointestinal Goal: Maintains adequate nutritional intake Outcome: Progressing Goals: Clinical Goals for the Shift: VS, abx, safety,and comfort Hand Shoe Cutter Patient Centered Goal for Treatment: return to baseline Summary: VS within limits, denies pain,and did not seem to be in any distress. Alert and oriented x4, follows simple commands, continuous abx, safety measures maintained, pt is resting comfortably inbed, will continue to monitor. * Plan of Care - Clementine Stone RN - 02/22/2024 6:35 PM CDT Goals: Clinical Goals for the Shift: VSS, abx, comfort, safety, rest Hand Shoe Cutter Patient Centered Goal for Treatment: return to baseline Summary: Blood cultures x2 drawn. Plan to draw again tomorrow. Robitussin x1. Continuing antibiotics. VSS. Patient resting comfortably in bed. Call light within reach. Problem: Discharge Planning Goal: Understanding discharge needs will improve Outcome: Progressing Problem: Respiratory Description: Patient will wean off oxygen and decrease coughing Goal: Patient's airway will be maintained Outcome: Progressing Goal: Achieves optimal ventilation and oxygenation Outcome: Progressing Goal: Ability to maintain a clear airway will improve Outcome: Progressing Problem: Cardiovascular Description: Will wean off norepinephrine and maintain MAP >65 Goal: Vital signs and blood gases are within patient's accepted norms Outcome: Progressing Problem: Gastrointestinal Goal: Maintains adequate nutritional intake Outcome: Progressing * Plan of Care - La Silverman LCSW - 02/22/2024 2:04 PM CDT Patient is a 29 y/o M with PMH of [facility] s/p OLT (03/1999) c/b PTLD (c-Myc, EBV+) s/p R-CHOP, EPOCK-R, last in 2018, CVID, ITP s/p splenectomy, chronic sinusitis (recently on levaquin -> then augmentin because swab returned with MSSA), chronic cholestasis with recurrent portal hypertension, 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 Patient was identified as high risk for readmission. Predictive Model Details 25% (High Risk) Factor Value Calculated 02/22/2024 12:03 15% Number of active inpatient medication orders 26 Risk of Unplanned Readmission Model 9% Number of ED visits in last six months 2 8% Number of hospitalizations in last year 2 8% ECG/EKG order present in last 6 months 8% Latest calcium low (7.6 mg/dL) 6% Encounter of ten days or longer in last year present 6% Diagnosis of electrolyte disorder present 6% Charlson Comorbidity Index 6 6% Imaging order present in last 6 months 5% Latest hemoglobin low (11.9 g/dL) 5% Phosphorous result present 4% Diagnosis of deficiency anemia present 4% Active anticoagulant inpatient medication order present 4% Active corticosteroid inpatient medication order present 3% Current length of stay 4.064 days 2% Age 29 2% Future appointment scheduled SW attempted to complete the assessment with patient at bedside. Nursing was attending to the patient. SW will attempt to follow up prior to discharge. MCKENZIE Giang, YAAKOV * Plan of Care - Scarlet Moreno RN - 02/22/2024 2:20 AM CDT Problem: Discharge Planning Goal: Understanding discharge needs will improve Outcome: Progressing Problem: Respiratory Description: Patient will wean off oxygen and decrease coughing Goal: Patient's airway will be maintained Outcome: Progressing Goal: Achieves optimal ventilation and oxygenation Outcome: Progressing Goal: Ability to maintain a clear airway will improve Outcome: Progressing Problem: Cardiovascular Description: Will wean off norepinephrine and maintain MAP >65 Goal: Vital signs and blood gases are within patient's accepted norms Outcome: Progressing Problem: Gastrointestinal Goal: Maintains adequate nutritional intake Outcome: Progressing Goals: Clinical Goals for the Shift: VS, abx, safety, and rest Hand Shoe Cutter Patient Centered Goal for Treatment: return to baseline Summary: VS within limits, alert and oriented x4, up ad deonte, denies pain, follows simple commands, and cooperative with treatment, no BM on this shift, I&Os maintained, medication given as ordered, pt is resting, will continue to monitor. * Plan of Care - Philip Curran RN - 02/21/2024 3:50 PM CDT Problem: Discharge Planning Goal: Understanding discharge needs will improve Outcome: Progressing Problem: Respiratory Description: Patient will wean off oxygen and decrease coughing Goal: Patient's airway will be maintained Outcome: Progressing Goal: Achieves optimal ventilation and oxygenation Outcome: Progressing Goal: Ability to maintain a clear airway will improve Outcome: Progressing Problem: Cardiovascular Description: Will wean off norepinephrine and maintain MAP >65 Goal: Vital signs and blood gases are within patient's accepted norms Outcome: Progressing Problem: Gastrointestinal Goal: Maintains adequate nutritional intake Outcome: Progressing Goals: Clinical Goals for the Shift: orient to unit, vss, abx, rest, comfort Hand Shoe Cutter Patient Centered Goal for Treatment: return to baseline Summary: Pt was tired and recovering from Rhino virus symptoms, coughs and low appetite. * Initial Assessments - Radha Zeng RN - 02/21/2024 3:10 PM CDT GISELLA Initial Assessment Interview Note Information Obtained From: Patient (02/21/24 0465) Admission Source: ED Impression: 29 year old male with autoimmune hepatitis presented to the ED with cough, congestion, fatigue, found, CTAP demonstrated a new cavitary pneumonia. He is admitted to the MICU in septic shock and AHRF requiring O2 supplementation. Plan Includes: Case management following for discharge planning and referrals as needed. Patient anticipates return to home when medically stable with support of family. Primary Source of Transportation: Does the patient need discharge transport arranged?: No (02/21/24 4903) Health Insurance Coverage: yes/ Jez SMITH Prescription Coverage: yes Pharmacy: [id number] [address] [address] [facility] [employer] [place] [id number] [facility] [address] [address] [address] [place], [place] - [address] [facility] [id number] Primary Care Provider: Beka Nick MD Prior to Admission: Functional Status: Independent with ADLs Primary Caregiver: Self Support System: Parent, Family members (Lives at home with parents and sister.) Home Care Services: No Outpatient Services: No Durable Medical Equipment: None Living Arrangements: Family members, Parent Type of Residence: Private residence Number of steps inside: 12 steps Number of steps outside: 1 steps Medication management: Independent (02/21/24 1508) Potential discharge needs include: TBD Home Health: None (02/21/24 1508) Dialysis: N/A Behavioral Health Services: Behavioral Health Services: No (02/21/24 1508) Patient expects to be Discharged to: Private residence, (02/21/24 1508) Additional Information: Patient lives with family in a private residence. Address and phone number verified with face sheet. Independent with ADLs at baseline, denies home health and DME prior to admission. Support and transportation at discharge per family. Role of case management explained. Patient's Identified Problem/Goal Problem: Ensure acute medical needs are met and that patient has a safe discharge plan. Goal: Secure a discharge plan that patient/family are agreeable with and ensure patient has continuum of care. Case management will follow for discharge planning and send referrals as needed. Goals include: To assure continuity of care, To maximize coping skills, To assure patient is in a safe environment and To assure access to community resources. Plan includes: 1. Collaboration with patient, MD, direct care nurse, Customer Experience Specialist, and other members of the health care team to assure needed interventions completed. 2. Return patient to optimal level of self-care post discharge. 3. Orthotic Assistant will follow for Discharge Planning - interventions as needed 4. Anticipated level of care at discharge 5. Planned Discharge Disposition Based on a comprehensive family assessment, assistance with instrumental activities of daily livingafter discharge will be provided by patient and family Through the course of our work I determined that the patient and family possesses the skill and ability to provide and monitor the care of the patient when he or she returns home. Patient and family has the capacity to provide/monitor/arrange for the care of the patient. Finally, we determined that Patient and family has the knowledge of available resources and that combining them with their existing resources will suffice to sustain and care for the patient when he or she returns home. The treatment team is aware of this information. All are in agreement with the aftercare plan. Radha Zeng RN * Consults, Subsequent - Nikky Duncan MD - 02/21/2024 7:26 AM CDT Infectious Disease Subsequent Consult Note Infectious Disease Team: Transplant Contact Information: Please see [facility] Treatment Team listing for up-to-date contact information. Subjective Transferred to floor Right IJ central venous catheter removed Blood culture 02/17 MSSA, susceptibility pending Blood culture 02/18: GPC clusters Sputum culture 02/18: MSSA TTE showed no valvular vegetations Objective Anti-infectives (From admission, onward) Start Dose/Rate Route Frequency Ordered Stop 02/19/24 2200 ceFAZolin (ANCEF) 2,000 mg/20 mL in sterile water (premix) 2,000 mg 2,000 mg 400 mL/hr over 3 Minutes intravenous Every 8 hours scheduled 02/19/24 1654 02/18/24 0900 letermovir (PREVYMIS) tablet 480 mg 480 mg oral Daily 02/18/24 0559 03/26/24 0859 02/18/24 0900 valGANciclovir (VALCYTE) tablet 900 mg 900 mg oral 2 times daily 02/18/24 0559 03/19/24 0859 Vitals: 24hr Min/Max: Temp Min: 36.4 ??C (97.6 ??F) Max: 36.7 ??C (98.1 ??F) Pulse Min: 74 Max: 103 BP Min: 104/66 Max: 129/82 Resp Min: 18 Max: 32 SpO2 Min: 94 % Max: 96 % Most Recent : Vitals: 02/21/24 0430 BP: 116/67 Pulse: 81 Resp: 20 Temp: 36.6 ??C (97.9 ??F) SpO2: 94% I/O last 2 completed shifts: In: 255 [IV Piggyback:255] Out: 0 [Urine:1850] Active LDAs: Peripheral IV 02/18/24 20 G Anterior;Distal;Left;Upper Arm (Active) Number of days: 3 Physical Exam: Physical Exam Constitutional: General: He is not in acute distress. Appearance: He is not diaphoretic. Cardiovascular: Heart sounds: Normal heart sounds. Comments: No subconjunctival emboli, no vertebral tenderness, no evidence of septic arthritis or other metastatic sites infection Pulmonary: Comments: Bronchial breath sounds left Neurological: Mental Status: He is alert and oriented to person, place, and time. Lab/Radiology/Diagnostic Review: Reviewed Assessment/Plan Summary: Mr. Lares is a 28 y.o. male with a history of refractory ITP s/p splenectomy in 2012, autoimmune hepatitis s/p liver transplant 03/30/19 c/b PTLD (c-Myc, EBV+) s/p CHOP x 1 (2016), DA-EPOCH-Rx 5 (09/2017-12/2017) with IT MTX x/ C3 10/2017 achieving complete remission 12/2017 and CMV viremia consisting of subpopulations with heterogenous resistance. He has had multiple admissions in the recent past. In October 2023, was admitted for AHRF the setting of right- sided loculated pleural effusion, right-sided peribronchovascular consolidations c/f worsening organizing pneumonia VS infection.He had a marginally elevated serum galactomannan of 0.67 but repeat galactomannan in a few days wasnegative. Also fungal cultures on the pleural fluid showed no growth. Follow-up CT in December demonstrated improvement in pleural effusion and development of right lower lobar pneumonia which was treated with a 7 day course of doxycycline and Augmentin. He again had URI symptoms around 01/10 for which he received a 7 day course of Augmentin. He followed up with ENT on 02/06 for chronic sinusitis with nasal endoscopy cultures growing MSSA. He was started on a 3 week course of levofloxacin.He currently presents with malaise, shortness of breath, productive cough with streaks of blood, nausea starting 02/14/2024. Chest CT on 02/17 shows resolution the right pleural effusion and right base consolidation development Left lower lobe cavitary pneumonia and left pleural effusion. Blood cultures from 02/18 and 02/17 and sputum culture 02/18 grew MSSA. Respiratory pathogen panel positive for rhinovirus/enterovirus which has been persistently positive for long time. Patient was empirically startedon cefepime, linezolid, metronidazole on admission and deescalated to cefazolin on availability of s usceptibilities. A right IJ CVC was placed on admission as he was transiently on pressors. This hasbeen removed. TTE on 02/20 demonstrated no valvular vegetations. He is currently on room air. Bloodcultures from 02/19 and 02/20 are showing no growth so far. [facility]prom[facility] patient: OLT (on tacrolimus, prednisone 10 mg) , splenectomy # cavitating LLL pneumonia-MSSA # h/o CMV viremia(no h/o tissue invasive disease ) #MSSA bacteremia Plan: -repeat blood cultures till 2 consecutive blood cultures are negative for more than 48 hours. -follow-up additional susceptibilities on blood cultures from 02/17 (daptomycin resistant) -continue cefazolin 2 g q.8 hours -monitor CBC, CMP at least once weekly while on cefazolin -patient complained of some low back pain today but did not have any vertebral tenderness on examination. Continue clinical monitoring for metastatic infection such as septic arthritis, vertebral infections etc -if the patient is persistently bacteremic, consider thoracocentesis -final duration of antibiotics will be determined after finalization of blood cultures -CMV was undetectable on 01/01/2024. During this admission 215 IU/mL. Likely reactivation in the setting of severe illness. Continue valganciclovir and letermovir. -transplant ID COORDINATOR OF PLACEMENT ,La Baxter will monitor peripherally Thank you for the opportunity to participate in the care of your patient. Please contact the Transplant Team ID fellow at the number listed under treatment team or [facility] with any questions or concerns. Patient was seen and discussed with Dr. Merino, who helped formulate plan as noted above. Nikky Duncan MD Infectious Disease Today, I am treating the patient for MSSA bacteremia and pneumonia which has a high risk of mortality, infective endocarditis, vertebral osteomyelitis in the short-term future in the absence of appropriate treatment, as described in the note., Reviewed notes by primary team, crit care team to determine appropriate plan of care as in the note., Estimated Creatinine Clearance: 117.2 mL/min (by Cockcroft-Gault based on SCr of 0.85 mg/dL). - reviewed; antibiotics recommended above are dosed accordingly., and The patient is being intensively monitored for antimicrobial toxicity from cefazolin withthe following tests: CBC, CMP. Cosigned by Thao Merino DO at 02/21/2024 10:41 PM CDT Associated attestation - Thao Merino DO - 02/21/2024 10:41 PM CDT I have seen and examined the patient on 02/21/24. I agree with the findings and plan of care as documented in the resident's/fellow's note. Mr. Lares feels slight improvement today but still has someSOB. Repeat BCx are NGTD thus far, and TTE without vegetation noted. We recommend continued Cefazolin pending culture data, and monitoring for any other potential foci of infection. Repeat CMV PCR inabout a week from the last and continue on current Valganciclovir and Letermovir. * Assessment & Plan Note - Keri Reed MD - 02/21/2024 5:54 AM CDT Associated Problem(s): History of pulmonary embolus (PE) Remote. No longer on a/c. * Assessment & Plan Note - Keri Reed MD - 02/21/2024 5:54 AM CDT Associated Problem(s): Bicytopenia - Hgb baseline 10s-12s. Transferred to floor w/ 11.9. No signs of bleeding. Hgb goal 7.0, supportive transfusions, maintain type/screen. - TCP is new this admission, baseline normal, now between 70-94. Most likely secondary to sepsis, bacteremia. Plt goal 10, or 50 if bleeding. * Assessment & Plan Note - Keri Reed MD - 02/21/2024 5:51 AM CDT Associated Problem(s): Chronic pansinusitis Follows w/ ENT as outpatient. Most recently completed outpatient course of levofloxacin -> augmentin. - Now w/ MSSA bacteremia, sinus source possible - MRSA nares negative - antibiotics: see #Bacteremia * Assessment & Plan Note - Keri Reed MD - 02/21/2024 5:51 AM CDT Associated Problem(s): CVID (common variable immunodeficiency) (HCC) Secondary to liver transplant. Now on monthly Cutaqu[place], last dose 02/13. - Med onc c/s. * Assessment & Plan Note - Keri Reed MD - 02/21/2024 5:50 AM CDT Associated Problem(s): 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HCC) Patient with chronic CMV with multiple resistance patterns. CMV viremia subpopulations w/ heterogenous resistance (h/o ganciclovir, cidofovir, maribavir) - Transplant ID consulted, plan to cont valganciclovir and letermovir - appreciate ID recs, assistance * Assessment & Plan Note - Keri Reed MD - 02/21/2024 5:49 AM CDT Associated Problem(s): History of liver transplant (CMS/HCC) (HCC) Pt w/ autoimmune hepatitis, s/p OLT 03/1999 c/b PTLD and now has CVID (on IVIG) - tacrolimus (0.5mg every other day); check tacro level and adjust tacro per daily troughs - hold home lasix and spironolactone iso recent shock, ongoing bacteremia - liver transplant team following - cont ursodiol * Assessment & Plan Note - Keri Reed MD - 02/21/2024 5:47 AM CDT Associated Problem(s): WATSON (acute kidney injury) (HCC) (Resolved 02/21/2024) RESOLVED. Admit Cr 1.54 from baseline normal. Normalized by floor transfer. * Assessment & Plan Note - Roland Grider MD - 02/21/2024 5:46 AM CDT Associated Problem(s): Acute respiratory failure with hypoxia (CMS/HCC) (HCC) Arrived with 2L oxygen requirement iso shock, PNA, rhinovirus. - CT w/ left lower lobe cavitary PNA with left pleural effusion, increased from priors - LEDs negative - RVP +rhino/enterovirus - antibiotics as elsewhere for bacteremia * Assessment & Plan Note - Roland Grider MD - 02/21/2024 5:46 AM CDT Associated Problem(s): Bacteremia Arrived in septic shock requiring low-dose levophed for <24 hours. - BCx 02/17 and 02/18 BC +MSSA 12/03, source likely PNA versus sinusitis with workup pending - s/p Azithro, 02/18 changed Zosyn to Cefazolin and discontinued Linezolid as d/w ID - ID consulted, currently on Cefazolin pending culture clearance (s/p linezolid, vanc, cefepime, flagyl, azithro) - Daily blood cultures till clear - TTE pending * Plan of Care - Mary Nevarez RN - 02/21/2024 12:34 AM CDT Goals: Clinical Goals for the Shift: orient to unit, vss, abx, rest, comfort Intermediate Patient Centered Goal for Treatment: return to baseline Summary: VSS. A&OX4. Abx given. BC's drawn. Pt resting with call light within reach. Safety maintained. * Significant Event - Keri Reed MD - 02/20/2024 10:52 PM CDT Accept Note Division of Hospital Medicine Name: Beka Lares : 1995 Service Date: February 21, 2024 Age: 29 y.o. male Admit Date: 02/18/2024 Bed: [id number] LOS: 3 days I assumed care of Beka Lares on 02/21/24. I have seen and examined the patient and the medical record. I agree with the Admission H&P and with note from the date of service today. Briefly. Mr. Lares is a 29 YOM w/ AIH s/p OLT () c/b PTLD (c-Myc, EBV+) s/p R-CHOP, EPOCH-R (2017), CVID, ITP s/p splenectomy, chronic sinusitis, chronic cholestasis w/ recurrent portal hypertension, resistant CMV viremia (on letermovir/valganciclovir), who initially presented on 02/18/2024 for SOB and is now transferred to the floor after ICU admission for septic shock. Prior to admission he reported experiencing approximately 1-2 weeks of increased fatigue, shortness for breath, and sinus discharge. He then developed fever, headache, and productive cough. He arrived to the ED febrile 38.3 with refractory hypotension despite 3 L of volume resuscitation, lactic acidosis, and elevated white blood cell count 24.1. Workup was notable for chest x-ray with a right- sided pneumonia, found to be a cavitary pneumonia with left pleural effusion on CT. His RVP was positive for rhino virus. He was started on Levophed drip and received empiric cefepime, vancomycin, Flagyl, and azithromycin, in addition to his chronic CMV suppression medications. He did not require intubation, but had a brief 2L oxygen requirement, now resolved. He was transferred to the ICU, where his blood cultures were positive for MSSA 2/2. His source is thought to be sinus versus pneumonia as he suffers from chronic pansinusitis, the workup is ongoing identified source and Infectious Disease has been consulted with a TTE pending. Course also complicated for WATSON (peak Cr 1.54, now 1.07). Levophed was discontinued on 02/18 and he was medically stable for floor transfer on 02/19. When seen on arrival to the floor, exam notable for T36.4, HR74, RR20, BP 124/77, SpO2 96% on RA. Exam revealed a chronically ill appearing male in NAD, breathing comfortably on room air, with normalheart tones and warm extremities. He denied complaints. Brief A/P below: Acute respiratory failure with hypoxia (CMS/HCC) ([facility]) Assessment & Plan Arrived with 2L oxygen requirement iso shock, PNA, rhinovirus. - CT w/ left lower lobe cavitary PNA with left pleural effusion, increased from priors - LEDs negative - RVP +rhino/enterovirus - antibiotics as above for bacteremia * Bacteremia Assessment & Plan Arrived in septic shock requiring low-dose levophed for <24 hours. - BCx 02/17 and 02/18 BC +MSSA 2/2, source likely PNA versus sinusitis with workup pending - s/p Azithro, 02/18 changed Zosyn to Cefazolin and discontinued Linezolid as d/w ID - ID consulted, currently on Zosyn/Cefazolin pending culture clearance (s/p linezolid, vanc, cefepime, flagyl, azithro) - Daily blood cultures till clear - TTE pending Bicytopenia Assessment & Plan - Hgb baseline 10s-12s. Transferred to floor w/ 11.9. No signs of bleeding. Hgb goal 7.0, supportive transfusions, maintain type/screen. - TCP is new this admission, baseline normal, now between 70-94. Most likely secondary to sepsis, bacteremia. Plt goal 10, or 50 if bleeding. Chronic pansinusitis Assessment & Plan Follows w/ ENT as outpatient. Most recently completed outpatient course of levofloxacin -> augmentin. - Now w/ MSSA bacteremia, sinus source possible - MRSA nares negative - antibiotics: see #Bacteremia Cytomegalovirus (CMV) viremia ([facility]) ([facility]) Assessment & Plan Patient with chronic CMV with multiple resistance patterns. CMV viremia subpopulations w/ heterogenous resistance (h/o ganciclovir, cidofovir, maribavir) - Transplant ID consulted, plan to cont valganciclovir and letermovir - appreciate ID recs, assistance History of liver transplant ([facility]) ([facility]) Assessment & Plan Pt w/ autoimmune hepatitis, s/p OLT 03/1999 c/b PTLD and now has CVID (on IVIG) - tacrolimus (0.5mg every other day); check tacro level and adjust tacro per daily troughs - hold home lasix and spironolactone iso recent shock, ongoing bacteremia - liver transplant team following - cont ursodiol History of pulmonary embolus (PE) Assessment & Plan Remote. No longer on a/c. CVID (common variable immunodeficiency) ([facility]) Assessment & Plan Secondary to liver transplant. Now on monthly Cutaquig, last dose 02/13. - Med onc c/s. WATSON (acute kidney injury) ([facility]) Assessment & Plan RESOLVED. Admit Cr 1.54 from baseline normal. Normalized by floor transfer. Keri Reed MD * Significant Event - La Granger NP - 02/20/2024 5:39 PM CDT ICU TO MEDICINE HANDOFF TOOL Primary reason for ICU admission: 29 y/o M with PMH of [facility] s/p OLT (03/1999) c/b PTLD (c-Myc, EBV+) [...] to the Oncology ICU for further management. Brief ICU Course: #Shock -Likely sepsis in setting of MSSA pneumonia, MSSA bacteremia -Lactate 3.3-> 3.4 s/p 3L LR, 500ml LR on admit to ICU for lactate 5, s/p Cefe, Flagyl, Vanc, started Levophed in ED, work up pending. -CT Chest with LLL cavitary pneumonia, resolution of RLL pna, bilateral effusions L >R -off levophed 02/18 -s/p Azithro, 02/18 changed Zosyn to Cefazolin and discontinued Linezolid as d/w ID -02/17 and 02/18 BC +MSSA, repeat BC sent 02/19, will obtain daily surveillance BC until clear, discontinued RIJ CVC 4/21 -TTE pending -Transplant Infectious Disease team following, appreciate recs #Acute respiratory failure with hypoxia/Rhinovirus -Pneumonia vs volume overload vs other. RR 40s. CXR with RLL pneumonia. CT chest with left lower lobe cavitary pneumonia with a left pleural effusion. -RVP + rhinovirus. -s/p Azithro/Cefe/Flagyl/Vanc in ED -will continue Azithro for 3-day course, 02/18 changed Zosyn to Cefazolin and discontinued Linezolidas d/w ID -MRSA swab neg, legionella neg -LE duplex scan neg -wean oxygen for goal SpO2 > 92% #WATSON -Cr 1.54. Pre-renal vs ATN. s/p 3L IVF, vancomycin in ED, contrast CT in ED. BUN 26 -trend UOP -trend Cr 1.54 > 1.07 today -urine lytes FENA 0.7% c/w pre-renal etiology -avoid nephrotoxins -renally dose medications #Chronic pansinusitis -Follows with ENT outpatient. Prescribed Levaquin on 02/06 and switched to Augmentin after called that swab was MSSA. Also, on prednisone -antibiotics as described -s/p 12-day course of prednisone 10mg per ENT #History of pulmonary embolus (PE) 10/19/2017 -no longer on anticoagulation #Portal hypertension (CMS/HCC) (HCC) tBili 3.9, Alk phos 175, AST 69 -will restart home Lasix and spironolactone as needed #CVID (common variable immunodeficiency)/ Hypogammaglobulinemia -s/p monthly IVIg, last infusion 10/09/23; now monthly SQ Cutaquig 16.5%, last dose 02/14/24 -follow up with MedOn team #Hyponatremia likely 2/2 portal hypertension. Na 127. -urine osm 168, urine Na <20, serum osm 278 -Na improving, now 139 #Cytopenia Hgb 11.2. Platelets 75 -goal Hgb > 7, Plt > 10 #Cytomegalovirus (CMV) viremia -CMV + DNA 215 IU/ml -cont. valganciclovir and letermovir -Transplant ID following #History of Autoimmune hepatitis -s/p OLT 03/1999 -tacrolimus (0.5mg every other day); check daily tacro level -cont. 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 Follows with Dr. Head - Med/Onc following #Idiopathic thrombocytopenic purpura -s/p splenectomy 2012 Active consultants: Hepatology Medical Oncology Transplant Infectious Disease New findings that warrant follow-up and pending studies: 02/17 and 02/08 BC + MSSA -repeat BC sent 02/19 -daily surveillance BC until clear PERTINENT physical exam findings on day of transfer: non productive cough Important changes to home medications: -restart home Lasix and spironolactone as needed Best family contact: Brooklynn Lares (mother) [phone] Rehab/Ancillary Consults: [] BI (trauma patient with LOC) [] Chemical dependency [x] PT [] OT [] Speech [] PM&R [] SMART (stroke patient) [] Wound care Anticoagulation therapy: [x] VTE Prophylaxis [] Heparin [x] Lovenox [] SCDs [] IVC Filter [] Other: [] None - Reason: [] Therapeutic Anticoagulation Indication: [] Heparin [] Lovenox [] Other: Any previous issues with tolerating anticoagulants? [] Yes [x] No Describe: Venous duplex performed? [x] Yes ---> Most recent findings: neg [] No Current antimicrobial therapy: Cefazolin Indication: MSSA pneumonia Start Date: 02/19/24 Planned Duration: per transplant ID team Lines/drains/airways present Peripheral IV 02/18/24 20 G Anterior;Distal;Left;Upper Arm (Active) Number of days: 2 Peripheral IV 02/18/24 20 G Right Antecubital (Active) Number of days: 2 Trach size, last date change (NA if not applicable): N/A To-do list prior to transfer: Make sure the following monitors or precautions are ordered if indicated: Telemetry [] Yes [x] No Continuous pulse oximetry [] Yes [x] No WINTER precautions [] Yes [x] No Difficult airway [] Yes [x] No Trach orders/signage [] Yes [x] No Size/Type: Date placed: Responsible service: Glycemic control plan [] Long acting insulin [] SSI --> change from scheduled to AC/HS blood glucose checks [x] None ----> d/c ICU insulin and blood glucose checks Central line necessary? [] Yes [x] No [] N/A Flor catheter necessary? [] Yes [x] No [] N/A QUESTIONS? Call [phone] * Plan of Care - Concepcion Arevalo RN - 02/20/2024 11:44 AM CDT Goals: Clinical Goals for the Shift: monitor vs; remove cvc; wean oxygen as able Intermediate Patient Centered Goal for Treatment: return to baseline Summary: pt is progressing toward all goals. Concepcion Arevalo RN Problem: Discharge Planning Goal: Understanding discharge needs will improve Outcome: Progressing Problem: Respiratory Description: Patient will wean off oxygen and decrease coughing Goal: Patient's airway will be maintained Outcome: Progressing Problem: Cardiovascular Description: Will wean off norepinephrine and maintain MAP >65 Goal: Vital signs and blood gases are within patient's accepted norms Outcome: Progressing * Plan of Care - Lay Ozuna - 02/19/2024 6:50 PM CDT Goals: Clinical Goals for the Shift: Monitor VS, labs, I&O; sleep hygeine Summary: weaned off norepinephrine and nasal cannula. Patient is not tachycardic or tachypneic. Guaifenesin given for persistent cough. Encouraged patient to use incentive spirometer. * Consults, Carolyne - Nikky Duncna MD - 02/19/2024 7:39 AM CDT BRIEF ID NOTE : Subjective Current antibiotics: Zosyn, linezolid, azithromycin, letermovir On room air, off pressors Leukocytosis downtrending Blood cultures from 02/17 growing MSSA in both sets CMV DNA: 215 Objective Assessment/Plan # immunocompromised patient: OLT (on tacrolimus, prednisone 10 mg) , splenectomy # cavitating LLL pneumonia: # h/o CMV viremia(no h/o tissue invasive disease #MSSA bacteremia -recommend discontinuing Zosyn and linezolid -start the patient on cefazolin 2 g q.8 hours -repeat blood cultures, obtain TTE, follow up fungal blood cultures and serum galactomannan -repeat CMV PCR in 1 week.continue valganciclovir and letermovir -no implants. Right IJ central venous catheter placed on 02/18/2024 while the patient is bacteremic. Off pressors now. Recommend removing CVC if not acutely required for pressors or access . -clinically monitor for signs of metastatic infection such as septic arthritis, vertebral pain etc. Cosigned by Na Garrdio MD at 02/21/2024 1:40 PM CDT Associated attestation - Na Garrido MD - 02/21/2024 1:40 PM CDT I have seen and examined the patient on 02/19/24. I agree with the findings and plan of care as documented in the resident's/fellow's note.. * Assessment & Plan Note - Jinny Salmon NP - 02/18/2024 2:02 PM CDT Associated Problem(s): History of pulmonary embolus (PE) 10/19/2017 -no longer on anticoagulation * Assessment & Plan Note - Jinny Salmon NP - 02/18/2024 2:01 PM CDT Associated Problem(s): Chronic pansinusitis Follows with ENT. Prescribed Levaquin on 02/06 and switched to Augmentin after called that swab was MSSA. Also on prednisone -antibiotics as described -s/p 12 day course of prednisone 10mg per ENT * Assessment & Plan Note - Jinny Salmon NP - 02/18/2024 2:00 PM CDT Associated Problem(s): Hypogammaglobulinemia (HCC) -monthly SQ IgG given 02/14/24 -f/u with Med Onc * Assessment & Plan Note - Jinny Salmon NP - 02/18/2024 2:00 PM CDT Associated Problem(s): 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HCC) -CMV + DNA 215 IU/ml -Transplant ID following -cont valganciclovir and letermovir * Assessment & Plan Note - Jinny Salmon NP - 02/18/2024 1:59 PM CDT Associated Problem(s): Portal hypertension (CMS/HCC) (HCC) tBili 3.9, Alk phos 175, AST 69 -consider RUQ US -will restart home lasix and spironolactone as needed * Assessment & Plan Note - Jinny Salmon NP - 02/18/2024 1:59 PM CDT Associated Problem(s): Idiopathic thrombocytopenic purpura (HCC) s/p splenectomy 2012 * Assessment & Plan Note - Jinny Salmon NP - 02/18/2024 1:58 PM CDT Associated Problem(s): CVID (common variable immunodeficiency) (HCC) on IVIg, last infusion 10/09/23; now on monthly SQ Cutaquig 16.5%, last dose 02/14/24 -follow up with MedOnc team * Assessment & Plan Note - Jinny Salmon NP - 02/18/2024 1:57 PM CDT Associated Problem(s): 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) s/p R-CHOP, EPOCH-R last in 2018. Follows with Dr. Head - Mp/Onc following * Assessment & Plan Note - Jinny Salmon NP - 02/18/2024 1:56 PM CDT Associated Problem(s): Autoimmune hepatitis (CMS/HCC) (HCC) s/p OLT 03/1999 -tacrolimus (0.5mg every other day); check tacro level -liver transplant following -cont ursodiol * Assessment & Plan Note - Jinny Salmon NP - 02/18/2024 1:56 PM CDT Associated Problem(s): Hypophosphatemia (Resolved 02/20/2024) -goal Phos 3-4 * Assessment & Plan Note - Jinny Salmon NP - 02/18/2024 1:56 PM CDT Associated Problem(s): Hypomagnesemia (Resolved 02/20/2024) due to poor PO intake -goal Mag 2-3 * Assessment & Plan Note - Jinny Salmon NP - 02/18/2024 1:54 PM CDT Associated Problem(s): Hypoalbuminemia Albumin 2.5. Due to poor PO intake -rate quoting operator following * Assessment & Plan Note - Jinny Salmon NP - 02/18/2024 1:53 PM CDT Associated Problem(s): Hyponatremia likely 2/2 portal hypertension. Na 127. -urine osm 168, urine Na <20, serum osm 278 -Na improving, now 139 * Assessment & Plan Note - Jinny Salmon NP - 02/18/2024 1:53 PM CDT Associated Problem(s): Hypocalcemia Due to poor PO intake -goal ionized sammy > 4.5 * Assessment & Plan Note - Jinny Salmon NP - 02/18/2024 1:52 PM CDT Associated Problem(s): WATSON (acute kidney injury) (HCC) (Resolved 02/21/2024) Cr 1.54. Pre-renal vs ATN. s/p 3L IVF and vancomycin in ED, contrast CT obtained in ED. BUN 26 -trend UOP -trend Cr 1.54 > 1.07 today -urine lytes FENA 0.7% c/w pre-renal etiology -avoid nephrotoxins -renally dose medications * Assessment & Plan Note - Jinny Salmon NP - 02/18/2024 1:51 PM CDT Associated Problem(s): Bicytopenia Hgb 11.2. Platelets 75 -goal Hgb > 7 -goal Plt > 10 * Assessment & Plan Note - Jinny Salmon NP - 02/18/2024 1:51 PM CDT Associated Problem(s): Rhinovirus -supportive care -see respiratory failure * Assessment & Plan Note - Jinny Salmon NP - 02/18/2024 1:51 PM CDT Associated Problem(s): Shock (CMS/HCC) (HCC) Likely sepsis in setting of MSSA pneumonia, [...] 02/18 changed Zosyn to Cefazolin and discontinued Linezolidas d/w ID -02/17 and 02/18 BC +MSSA, repeat BC sent 02/19, will obtain daily surveillance BC until clear, discontinued RIJ CVC -TTE pending -fungal work up pending -Transplant Infectious Disease team following, appreciate recs * Assessment & Plan Note - Jinny Salmon NP - 02/18/2024 1:44 PM CDT Associated Problem(s): Acute respiratory failure with hypoxia (CMS/HCC) (HCC) Pneumonia vs volume overload vs other. RR 40s. CXR with RLL pneumonia. CT chest with left lower lobe cavitary pneumonia with a left pleural effusion. -RVP + rhinovirus. -S/p Azithro/Cefe/Flagyl/Vanc in ED -will continue Azithro for 3 day course, 02/18 changed Zosyn to Cefazolin and discontinued Linezolidas d/w ID -MRSA swab neg -legionella neg -LE duplex scan pending -wean oxygen for goal SpO2 > 92% * ED Procedure Note - La Owens MD - 02/18/2024 9:18 AM CDT Associated Order(s): Critical Care Procedure Critical Care Performed by: La Owens MD Authorized by: La Owens MD Critical care provider statement: As reflected in the history, physical exam, orders, notes, and/or MDM, I was personally present while the patient was critically ill and provided critical care services for 30 minutes, excluding timeinvolved in separately billable procedures. Critical care was necessary to treat or prevent imminent or life- threatening deterioration of the following condition(s): sepsis Critical care was time spent by me providing the following: serial bedside patient exams, continuous telemetry, continuous pulse oximetry and resuscitation with fluids obtain appropriate cultures, review prior cultures/records and empiric broad coverage antibiotics I provided emergent necessary critical care medicine services to this patient. I ordered and reviewed test results and/or imaging studies. I spent time discussing the management of this critically ill patient with consultants and the medical staff. I spent time discussing the management and therapeutic options for this critically ill patient with the patient themselves or with the appropriate designated surrogate decision-maker. I spent time documenting in the medical record. La Owens MD 02/18/24 0919 * ED Procedure Note - Azucena Kang MD - 02/18/2024 6:13 AM CDTAssociated Order(s): ECG 12 lead Procedure ECG 12 lead Date/Time: 02/18/2024 6:13 AM Performed by: Azucena Kang MD Authorized by: Lexa Constantino MD Rate: ECG rate: 118 ECG rate assessment: tachycardic Rhythm: Rhythm: sinus tachycardia Ectopy: Ectopy: none QRS: QRS axis: Normal QRS intervals: Normal Conduction: Conduction: normal ST segments: ST segments: Normal T waves: T waves: normal Previous ECG: Previous ECG: Compared to current Date of previous EC10/03/2023 Similarity: No change Interpretation: Interpretation: No acute injury pattern Recommended Follow-up: Recommended follow up: further workup in the ED Azucena Kang MD 02/18/24 0614 * ED Procedure Note - Azucena Kang MD - 02/18/2024 6:09 AM CDTAssociated Order(s): Critical Care Procedure Critical Care Performed by: Azucena Kang MD Authorized by: Azucena Kang MD Critical care provider statement: As reflected in the history, physical exam, orders, notes, and/or MDM, I was personally present while the patient was critically ill and provided critical care services for 45 minutes, excluding timeinvolved in separately billable procedures. Critical care was necessary to treat or prevent imminent or life- threatening deterioration of the following condition(s): hypoxic respiratory failure sepsis Critical care was time spent by me providing the following: continuous telemetry, continuous pulse oximetry, interpretation of bedside monitors, imaging, and arterial/venous lab draws, serial bedside patient exams and resuscitation with fluids supplemental oxygen review prior cultures/records, obtain appropriate cultures and empiric broad coverage antibiotics I provided emergent necessary critical care medicine services to this patient. I spent time discussing the management of this critically ill patient with consultants and the medical staff. I ordered and reviewed test results and/or imaging studies. I spent time discussing the management and therapeutic options for this critically ill patient with the patient themselves or with the appropriate designated surrogate decision-maker. I spent time documenting in the medical record. Azucena Kang MD 02/18/24 0636 documented in this encounter Plan of Treatment Pending Results Name Type Priority Associated Diagnoses Date /Time Magnesium Lab STAT 02/18/2024 5:5 3 AM CDT Phosphorus Lab STAT 02/18/2024 5:5 3 AM CDT IgG Lab Routine 02/18/2024 4:1 5 PM CDT Blood culture Blood Peripheral Microbiology STAT 02/24/2024 12:02 PM CDT Blood culture Blood Peripheral Microbiology STAT 02/24/2024 12:02 PM CDT Senior staff review Lab Routine 02/24 4:06 AM CDT Scheduled Orders Name Type Priority Associated Diagnoses Orde r Schedule Magnesium Lab STAT Once for 1 Occ urrences starting 02/18/2024 until 02/18/2024 Phosphorus Lab STAT Once for 1 Occ urrences starting 02/18/2024 until 02/18/2024 IgG Lab Routine Once for 1 Occ urrences starting 02/18/2024 until 02/18/2024 ECG 12 lead ECG STAT As needed unt il discontinued starting 02/21/2024 Senior staff review Lab Routine Once for 1 Occurrences starting 02/25/2024 until 02/25/2024 Scheduled Procedures Name Priority Associated Diagnoses Date/Ti me COLONOSCOPY Encounter for screening for colorectal cancer in high risk patient Family history of rectal cancer Scheduled Referrals Name Type Priority Associated Diagnoses Order Schedule Ambulatory referral to Home Health Outpatient Referral Routine Bacteremia 1 Occurrences starting 02/25/2024 until 08/26/2024 documented as of this encounter Procedures Procedure Name Priority Date/Time Associated Diagnosis Comments EGFR Routine 02/26/2024 3:54 AM CDT DIFFERENTIAL AUTO Routine 02/26/2024 3:5 4 AM CDT TACROLIMUS LEVEL, TROUGH Routine 02/26/2024 3:54 AM CDT CBC WITH AUTO DIFFERENTIAL Routine 02/26/2024 3:54 AM CDT PHOSPHORUS Routine 02/26/2024 3:54 AM CDT MAGNESIUM Routine 02/26/2024 3:54 AM CDT COMPREHENSIVE METABOLIC PANEL Routine 02/26/2024 3:54 AM CDT EGFR Routine 02/25/2024 4:06 AM CDT SENIOR STAFF REVIEW Routine 02/25/2024 4 :06 AM CDT TACROLIMUS LEVEL, TROUGH Routine 02/25/2024 4:06 AM CDT CBC WITH AUTO DIFFERENTIAL Routine 02/25/2024 4:06 AM CDT MANUAL DIFFERENTIAL Routine 02/25/2024 4 :06 AM CDT PHOSPHORUS Routine 02/25/2024 4:06 AM CDT MAGNESIUM Routine 02/25/2024 4:06 AM CDT COMPREHENSIVE METABOLIC PANEL Routine 02/25/2024 4:06 AM CDT XR CHEST PA LATERAL 2 VIEWS IP Routine 02/24/2024 1:55 PM CDT BLOOD CULTURE Routine 02/24/2024 12:02 PM CDT BLOOD CULTURE Routine 02/24/2024 12:02 PM CDT EGFR Routine 02/24/2024 3:58 AM CDT DIFFERENTIAL AUTO Routine 02/24/2024 3:5 8 AM CDT TACROLIMUS LEVEL, TROUGH Routine 02/24/2024 3:58 AM CDT CBC WITH AUTO DIFFERENTIAL Routine 02/24/2024 3:58 AM CDT TYPE AND SCREEN Timed 02/24/2024 3:58 AM CDT PHOSPHORUS Routine 02/24/2024 3:58 AM CDT MAGNESIUM Routine 02/24/2024 3:58 AM CDT COMPREHENSIVE METABOLIC PANEL Routine 02/24/2024 3:58 AM CDT BLOOD CULTURE STAT 02/23/2024 11:22 AM CDT BLOOD CULTURE STAT 02/23/2024 11:22 AM CDT EGFR Routine 02/23/2024 5:09 AM CDT TACROLIMUS LEVEL, TROUGH Routine 02/23/2024 5:09 AM CDT CBC WITH AUTO DIFFERENTIAL Routine 02/23/2024 5:09 AM CDT MANUAL DIFFERENTIAL Routine 02/23/2024 5 :09 AM CDT PHOSPHORUS Routine 02/23/2024 5:09 AM CDT MAGNESIUM Routine 02/23/2024 5:09 AM CDT COMPREHENSIVE METABOLIC PANEL Routine 02/23/2024 5:09 AM CDT BLOOD CULTURE STAT 02/22/2024 2:08 PM CDT BLOOD CULTURE STAT 02/22/2024 2:08 PM CDT TYPE AND SCREEN Timed 02/22/2024 3:00 AM CDT EGFR Routine 02/22/2024 2:30 AM CDT DIFFERENTIAL AUTO Routine 02/22/2024 2:3 0 AM CDT TACROLIMUS LEVEL, TROUGH Routine 02/22/2024 2:30 AM CDT CBC WITH AUTO DIFFERENTIAL Routine 02/22/2024 2:30 AM CDT APTT Routine 02/22/2024 2:30 AM CDT PROTIME-INR Routine 02/22/2024 2:30 AM CDT URIC ACID Routine 02/22/2024 2:30 AM CDT PHOSPHORUS Routine 02/22/2024 2:30 AM CDT MAGNESIUM Routine 02/22/2024 2:30 AM CDT LACTATE DEHYDROGENASE Routine 02/22/2024 2:30 AM CDT COMPREHENSIVE METABOLIC PANEL Routine 02/22/2024 2:30 AM CDT TRANSTHORACIC ECHO (TTE) COMPLETE W DOPPLER/CF WO CONTRAST Routine 02/21/2024 12:36 PM CDT EGFR Routine 02/21/2024 5:19 AM CDT DIFFERENTIAL AUTO Routine 02/21/2024 5:1 9 AM CDT TACROLIMUS LEVEL, TROUGH Routine 02/21/2024 5:19 AM CDT CBC WITH AUTO DIFFERENTIAL Routine 02/21/2024 5:19 AM CDT BLOOD CULTURE STAT 02/21/2024 5:19 AM CDT PHOSPHORUS Routine 02/21/2024 5:19 AM CDT MAGNESIUM Routine 02/21/2024 5:19 AM CDT COMPREHENSIVE METABOLIC PANEL Routine 02/21/2024 5:19 AM CDT BLOOD CULTURE STAT 02/21/2024 5:07 AM CDT US VEIN DUPLEX LOWER EXTREMITY BILATERAL COMPLETE ED Urgent/IP Urgent 02/20/2024 5:52 PM CDT BLOOD CULTURE Routine 02/20/2024 6:28 AM CDT BLOOD CULTURE Routine 02/20/2024 6:28 AM CDT EGFR Routine 02/20/2024 1:46 AM CDT DIFFERENTIAL AUTO Routine 02/20/2024 1:4 6 AM CDT CBC WITH AUTO DIFFERENTIAL Routine 02/20/2024 1:46 AM CDT PHOSPHORUS Routine 02/20/2024 1:46 AM CDT MAGNESIUM Routine 02/20/2024 1:46 AM CDT COMPREHENSIVE METABOLIC PANEL Routine 02/20/2024 1:46 AM CDT PNEUMONIA PCR Routine 02/19/2024 7:59 AM CDT PNEUMONIA PCR WITH AEROBIC CULTURE AND GRAM STAIN Routine 02/19/2024 7:59 AM CDT OXYHEMOGLOBIN, CENTRAL VENOUS Routine 02/19/2024 7:55 AM CDT LACTATE Routine 02/19/2024 7:55 AM CDT TACROLIMUS LEVEL, TROUGH Timed 02/19/2024 7:55 AM CDT BLOOD CULTURE Routine 02/19/2024 6:52 AM CDT BLOOD CULTURE Routine 02/19/2024 6:52 AM CDT XR CHEST 1 VIEW Timed 02/19/2024 6:00 AM CDT COCCIDIOIDES ANTIBODY SCREEN W/REFLEX Routine 02/19/2024 2:18 AM CDT EGFR Routine 02/19/2024 2:18 AM CDT DIFFERENTIAL AUTO Routine 02/19/2024 2:1 8 AM CDT CBC WITH AUTO DIFFERENTIAL Routine 02/19/2024 2:18 AM CDT PHOSPHORUS Routine 02/19/2024 2:18 AM CDT MAGNESIUM Routine 02/19/2024 2:18 AM CDT COMPREHENSIVE METABOLIC PANEL Routine 02/19/2024 2:18 AM CDT DC ARTL CATHJ/CANNULJ MNTR/TRANSFUSION SPX PRQ Routine 02/18/2024 5:56 PM CDT Shock (CMS/HCC) (HCC) DC INSJ NON-TUNNELED CENTRAL VENOUS CATH AGE 5 YR/> Routine 02/18/2024 5:54 PM CDT Shock (CMS/HCC) (HCC) POTASSIUM, WHOLE BLOOD Routine 5:33 PM CDT HISTOPLASMA ANTIGEN Routine 02/18/2024 5 :00 PM CDT UREA NITROGEN, URINE, RANDOM Routine 02/18/2024 5:00 PM CDT LEGIONELLA ANTIGEN, URINE Routine 02/18/2024 5:00 PM CDT SODIUM, URINE, RANDOM Routine 02/18/2024 5:00 PM CDT OSMOLALITY, URINE Routine 02/18/2024 5:0 0 PM CDT CREATININE, URINE, RANDOM Routine 02/18/2024 5:00 PM CDT XR CHEST 1 VIEW IP Routine 02/18/2024 4:25 PM CDT POCT GLUCOSE DEVICE Routine 02/18/2024 4 :22 PM CDT POC BLOOD GAS AND CHEMISTRIES, VENOUS Routine 02/18/2024 4:22 PM CDT TROPONIN I HIGH-SENSITIVITY Routine 02/18/2024 4:15 PM CDT HERPES SIMPLEX VIRUS (HSV) PCR Routine 02/18/2024 4:15 PM CDT LACTATE STAT 02/18/2024 4:15 PM CDT EGFR Routine 02/18/2024 4:15 PM CDT DIFFERENTIAL AUTO Routine 02/18/2024 4:1 5 PM CDT NADINE-DE LA CRUZ VIRUS (EBV) DNA QUANTITATIVE Routine 02/18/2024 4:15 PM CDT BLASTOMYCES ANTIBODY, EIA, S Routine 02/18/2024 4:15 PM CDT PRO B-TYPE NATRIURETIC PEPTIDE STAT 02/18/2024 4:15 PM CDT HIV 1/2 ANTIBODY PLUS P24 ANTIGEN Routine 02/18/2024 4:15 PM CDT CBC WITH AUTO DIFFERENTIAL Routine 02/18/2024 4:15 PM CDT CRYPTOCOCCAL ANTIGEN, SERUM Routine 02/18/2024 4:15 PM CDT HEPATITIS PANEL, ACUTE Routine 4:15 PM CDT ASPERGILLUS GALACTOMANNAN ANTIGEN Routine 02/18/2024 4:15 PM CDT RPR Routine 02/18/2024 4:15 PM CDT PROTIME-INR STAT 02/18/2024 4:15 PM CDT PHOSPHORUS Routine 02/18/2024 4:15 PM CDT OSMOLALITY, BLOOD Routine 02/18/2024 4:1 5 PM CDT MAGNESIUM Routine 02/18/2024 4:15 PM CDT IGG Routine 02/18/2024 4:15 PM CDT CREATINE KINASE (CK), TOTAL STAT 02/18/2024 4:15 PM CDT COMPREHENSIVE METABOLIC PANEL Routine 02/18/2024 4:15 PM CDT MOLD BLOOD CULTURE Routine 02/18/2024 3: 54 PM CDT ECG 12-LEAD STAT 02/18/2024 3:07 PM CDT URINALYSIS AND REFLEX TO MICROSCOPIC AND CULTURE STAT 02/18/2024 2:25 PM CDT SEPSIS LACTATE WITH REFLEX Timed 02/18/2024 12:41 PM CDT CRITICAL RESULT CALLBACK CHEMISTRY Timed 02/18/2024 12:41 PM CDT MRSA ONLY (STAPHYLOCOCCUS AUREUS) CULTURE Routine 02/18/2024 9:28 AM CDT SEPSIS LACTATE WITH REFLEX Timed 02/18/2024 9:28 AM CDT DC CRITICAL CARE ILL/INJURED PATIENT INIT 30-74 MIN Routine 02/18/2024 9:[address] CHEST W CONTRAST ED 02/18/2024 7 :19 AM CDT POCT CREATININE - DEVICE Routine 02/18/2024 6:59 AM CDT CALCIUM, IONIZED STAT 02/18/2024 6:53 AM CDT ECG 12-LEAD Routine 02/18/2024 6:13 AM CDT XR CHEST 1 VIEW ED 02/18/2024 6:13 AM CDT DC CRITICAL CARE ILL/INJURED PATIENT INIT 30-74 MIN Routine 02/18/2024 6:09 AM CDT CYTOMEGALOVIRUS (CMV) DNA, QUANT GEN LAB Routine 02/18/2024 5:59 AM CDT TACROLIMUS LEVEL, RANDOM STAT 02/18/2024 5:59 AM CDT SEPSIS LACTATE WITH REFLEX STAT 02/18/2024 5:53 AM CDT EGFR STAT 02/18/2024 5:53 AM CDT CBC WITH AUTO DIFFERENTIAL STAT 02/18/2024 5:53 AM CDT MANUAL DIFFERENTIAL STAT 02/18/2024 5 :53 AM CDT BLOOD CULTURE Routine 02/18/2024 5:53 AM CDT BLOOD CULTURE Routine 02/18/2024 5:53 AM CDT PHOSPHORUS STAT 02/18/2024 5:53 AM CDT MAGNESIUM STAT 02/18/2024 5:53 AM CDT COMPREHENSIVE METABOLIC PANEL STAT 02/18/2024 5:53 AM CDT RESPIRATORY PATHOGEN PANEL Routine 02/18/2024 5:24 AM CDT documented in this encounter Results * eGFR (02/26/2024 3:54 AM CDT) eGFR >90 >=60 mL/min/1. 73 [...] interpretive data was last reviewed 2021. Blood 02/26/2024 3:54 AM CDT 02/26/2024 4:08 AM CDT us [place] NP LAB BLOOD ORDERABLES Final Result [facility] [place] [address] * (ABNORMAL) Differential, auto (02/26/2024 3:54 AM CDT) Neutrophil abs 2.2 1.5 - 6.5 K/cumm Imm gran abs 0.2(H) 0.0 - 0.1 K/cumm [facility] Lymphocyte abs 9.1(H) 0.8 - 3.3 K/cumm [facility] Monocyte abs 1.4(H) 0.2 - 0.8 K/cumm [facility] Eosinophil abs 0.2 0.0 - 0.5 K/cumm [facility] Basophil abs 0.2(H) 0.0 - 0.1 K/cumm [facility] Neutrophil pct 16.4 % [facility] Comment: Consistent with previous result Consistent with previous result Interpretive Data Percent cell count reference ranges are not reported, since discordance with absolute values may lead to misinterpretation of CBC data. Current Interpretive Data was last revised on 2018. Imm gran pct 1.1 % [facility] Comment: Interpretive Data Percent cell count reference ranges are not reported, since discordance with absolute values may lead to misinterpretation of CBC data. Current Interpretive Data was last revised on 2018. Lymphocyte pct 69.0 % [facility] Comment: Interpretive Data Percent cell count reference ranges are not reported, since discordance with absolute values may lead to misinterpretation of CBC data. Current Interpretive Data was last revised on 2018. Monocyte pct 10.7 % [facility] Comment: Interpretive Data Percent cell count reference ranges are not reported, since discordance with absolute values may lead to misinterpretation of CBC data. Current Interpretive Data was last revised on 2018. Eosinophil pct 1.2 % [facility] Comment: Interpretive Data Percent cell count reference ranges are not reported, since discordance with absolute values may lead to misinterpretation of CBC data. Current Interpretive Data was last revised on 2018. Basophil pct 1.6 % [facility] Comment: Interpretive Data Percent cell count reference ranges are not reported, since discordance with absolute values may lead to misinterpretation of CBC data. Current Interpretive Data was last revised on 2018. Blood 02/26/2024 3:54 AM CDT 02/26/2024 4:08 AM CDT [place] COORDINATOR OF PLACEMENT LAB BLOOD ORDERABLES Final Result [facility] [place] [address] * Tacrolimus level trough (02/26/2024 3:54 AM CDT) [facility] Tacrolimus trough 8.6 ng/mL Comment: Interpretive Data Testing performed by liquid chromatography-tandem mass spectrometry. ??Therapeutic concentrations vary depending on type of transplanted organ and time elapsed since transplant. ??Typical trough concentrations range from 5-15 ng/mL. ??This test was developed and its performance characteristics determined by the [facility] consistent with CLIA requirements. ??This test has not been cleared or approved by the [place] Food and Drug administration. ??Current interpretive data last reviewed 2020. Blood 02/26/2024 3:54 AM CDT 02/26/2024 4:08 AM CDT Keri Reed MD LAB BLOOD ORDERABLES Final Result [facility] [place] [address] * (ABNORMAL) CBC with auto differential (02/26/2024 3:54 AM CDT) WBC 13.2(H) 3.8 - 9.9 K/cumm Hgb 10.6(L) 13.0 - 17.5 g/dL [facility] Hct 28.3(L) 38.9 - 50.3 % [facility] Plt 109(L) 150 - 400 K/cumm [facility] MPV 12.3 9.1 - 12.3 fL [facility] RBC 2.79(L) 4.30 - 5.80 M/cumm [facility] MCV 101.4(H) 81.3 - 96.4 fL [facility] MCH 38.0(H) 27.1 - 33.3 pg [facility] MCHC 37.5(H) 32.3 - 35.7 g/dL [facility] RDW CV 20.4(H) 11.1 - 14.9 % [facility] RDW SD 68.5(H) 35.7 - 48.1 fL [facility] NRBC abs 0.02(H) 0.00 - 0.01 K/cumm [facility] Blood 02/26/2024 3:54 AM CDT 02/26/2024 4:08 AM CDT [place] NP LAB BLOOD ORDERABLES Final Result [facility] Department [place] [address] * Phosphorus (02/26/2024 3:54 AM CDT) Phosphorus, pl 2.8 2.3 - 4.5 mg/dL Blood 02/26/2024 3:54 AM CDT 02/26/2024 4:08 AM CDT [place] LAB BLOOD ORDERABLES Final Result Performing Organization Address City/[facility]/ZIP Co de Phone Number [facility] [place] [address] * Magnesium (02/26/2024 3:54 AM CDT) Pathologist [facility] Magnesium 1.7 1.4 - 2.5 mg/dL Blood 02/26/2024 3:54 AM CDT 02/26/2024 4:08 AM CDT [facility] LAB BLOOD ORDERABLES Final Result Performing Organization Address [facility] de Phone Number [facility] [place] [address] * (ABNORMAL) Comprehensive metabolic panel (02/26/2024 3:54 AM CDT) [facility] Sodium 138 135 - 145 mmol/L Potassium, pl 4.1 3.3 - 4.9 mmol/L [facility] Chloride 112(H) 97 - 110 mmol/L [facility] CO2 23 22 - 32 mmol/L [facility] Anion gap 3 2 - 15 mmol/L [facility] BUN 17 6 - 25 mg/dL [facility] Creatinine 0.75(L) 0.80 - 1.30 mg/dL [facility] Glucose 131 70 - 199 mg/dL [facility] Comment: Interpretive Data Fasting glucose >/= [...] interpretive data was last revised 2022. Calcium 7.5(L) 8.5 - 10.3 mg/dL [facility] Bilirubin, total 2.2(H) 0.1 - 1.2 mg/dL [facility] Protein, pl 4.1(L) 6.5 - 8.5 g/dL [facility] Albumin 2.1(L) 3.5 - 5.0 g/dL [facility] Alk phos 182(H) 40 - 130 Units/L [facility] ALT 9 7 - 55 Units/L [facility] AST 38 10 - 50 Units/L [facility] Blood 02/26/2024 3:54 AM CDT 02/26/2024 4:08 AM CDT [place] COORDINATOR OF PLACEMENT LAB BLOOD ORDERABLES Final Result [facility] Department [place] [address] * (ABNORMAL) Manual Differential (02/25/2024 4:06 AM CDT) Differential Manual Cells Counted 133 [facility] Neutrophil abs 1.5 1.5 - 6.5 K/cumm [facility] Imm gran abs 0.0 0.0 - 0.1 K/cumm [facility] Lymphocyte abs 8.9(H) 0.8 - 3.3 K/cumm [facility] Monocyte abs 0.9(H) 0.2 - 0.8 K/cumm [facility] Eosinophil abs 0.2 0.0 - 0.5 K/cumm [facility] Basophil abs 0.3(H) 0.0 - 0.1 K/cumm [facility] Neutrophil pct 12.8 % [facility] Comment: Interpretive Data Percent cell count reference ranges are not reported, since discordance with absolute values may lead to misinterpretation of CBC data. Current Interpretive Data was last revised on 2018. Lymphocyte pct 49.6 % [facility] Comment: Interpretive Data Percent cell count reference ranges are not reported, since discordance with absolute values may lead to misinterpretation of CBC data. Current Interpretive Data was last revised on 2018. Monocyte pct 7.5 % [facility] Comment: Interpretive Data Percent cell count reference ranges are not reported, since discordance with absolute values may lead to misinterpretation of CBC data. Current Interpretive Data was last revised on 2018. Eosinophil pct 1.5 % [facility] Comment: Interpretive Data Percent cell count reference ranges are not reported, since discordance with absolute values may lead to misinterpretation of CBC data. Current Interpretive Data was last revised on 2018. Basophil pct 2.3 % [facility] Comment: Interpretive Data Percent cell count reference ranges are not reported, since discordance with absolute values may lead to misinterpretation of CBC data. Current Interpretive Data was last revised on 2018. Variant lymph pct 26.3 % [facility] Pathologist comment Reviewed by Hematopatholog ist/Hematologi Iliana wynn M.D. 02/25/2024 Numerous atypical lymphocytes with LGL-like features. Further evaluation by Flow Cytometry maybe helpful if clinically indicated. [facility] Blood 02/25/2024 4:06 AM CDT 02/25/2024 5:27 AM CDT us [place] NP LAB BLOOD ORDERABLES Edited Result - Final [facility] [place] [address] * Senior staff review (02/25/2024 4:06 AM CDT) Senior Staff Review Specimen Blood Senior Staff Review Review Done [facility] Comment:<Text removed> Blood 02/25/2024 4:06 AM CDT 02/25/2024 5:27 AM CDT Narrative [facility] - 02/25/2024 3:58 PM CDT pathology review us Roxann Craft MD LAB BLOOD ORDERABLES Final Res ult [facility] [place] [address] * eGFR (02/25/2024 4:06 AM CDT) Pathologist [facility] eGFR >90 >=60 mL/min/1. 73 m2 Comment: [...] interpretive data was last reviewed 2021. Blood 02/25/2024 4:06 AM CDT 02/25/2024 4:17 AM CDT [place] COORDINATOR OF PLACEMENT LAB BLOOD ORDERABLES Final Result [facility] Department [place] [address] * Tacrolimus level trough (02/25/2024 4:06 AM CDT) Tacrolimus trough 7.6 ng/mL Comment: Interpretive Data Testing performed by liquid chromatography-tandem mass spectrometry. ??Therapeutic concentrations vary depending on type of transplanted organ and time elapsed since transplant. ??Typical trough concentrations range from 5-15 ng/mL. ??This test was developed and its performance characteristics determined by the [facility] consistent with CLIA requirements. ??This test has not been cleared or approved by the [place] Food and Drug administration. ??Current interpretive data last reviewed 2020. Blood 02/25/2024 4:06 AM CDT 02/25/2024 4:16 AM CDT Keri Reed MD LAB BLOOD ORDERABLES Final Result [facility] [place] [address] * (ABNORMAL) CBC with auto differential (02/25/2024 4:06 AM CDT) Pathologist [facility] WBC 11.7(H) 3.8 - 9.9 K/cumm Hgb 11.2(L) 13.0 - 17.5 g/dL [facility] Comment:Result may be inaccu rate due to increased plasma turbidity. Consider redraw. Hct 29.6(L) 38.9 - 50.3 % [facility] Plt 99(L) 150 - 400 K/cumm [facility] MPV 12.3 9.1 - 12.3 fL [facility] RBC 2.99(L) 4.30 - 5.80 M/cumm [facility] MCV 99.0(H) 81.3 - 96.4 fL [facility] MCH 37.5(H) 27.1 - 33.3 pg [facility] Comment:Result may be inaccu rate due to increased plasma turbidity. Consider redraw. MCHC 37.8(H) 32.3 - 35.7 g/dL [facility] Comment:Result may be inaccu rate due to increased plasma turbidity. Consider redraw. RDW CV 19.2(H) 11.1 - 14.9 % [facility] RDW SD 63.3(H) 35.7 - 48.1 fL [facility] NRBC abs 0.00 0.00 - 0.01 K/cumm [facility] Blood 02/25/2024 4:06 AM CDT 02/25/2024 4:17 AM CDT [place] LAB BLOOD ORDERABLES Edited Result - Final [facility] [place] [address] * Phosphorus (02/25/2024 4:06 AM CDT) Pathologist [facility] Phosphorus, pl 3.0 2.3 - 4.5 mg/dL Blood 02/25/2024 4:06 AM CDT 02/25/2024 4:17 AM CDT [place] LAB BLOOD ORDERABLES Final Result Performing Organization Address [facility] Co de Phone Number [facility] [place] [address] * Magnesium (02/25/2024 4:06 AM CDT) Magnesium 1.7 1.4 - 2.5 mg/dL Blood 02/25/2024 4:06 AM CDT 02/25/2024 4:17 AM CDT [facility] LAB BLOOD ORDERABLES Final Result Performing Organization Address City/[facility] Co de Phone Number [place] [address] * (ABNORMAL) Comprehensive metabolic panel (02/25/2024 4:06 AM CDT) Sodium 139 135 - 145 mmol/L Potassium, pl 5.0(H) 3.3 - 4.9 mmol/L [facility] Chloride 110 97 - 110 mmol/L [facility] CO2 24 22 - 32 mmol/L [facility] Anion gap 5 2 - 15 mmol/L [facility] BUN 17 6 - 25 mg/dL [facility] Creatinine 0.71(L) 0.80 - 1.30 mg/dL [facility] Glucose 82 70 - 199 mg/dL [facility] Comment: Interpretive Data Fasting glucose >/= [...] interpretive data was last revised 2022. Calcium 7.5(L) 8.5 - 10.3 mg/dL [facility] Bilirubin, total 2.7(H) 0.1 - 1.2 mg/dL [facility] Protein, pl 4.2(L) 6.5 - 8.5 g/dL [facility] Albumin 2.1(L) 3.5 - 5.0 g/dL [facility] Alk phos 173(H) 40 - 130 Units/L [facility] ALT 14 7 - 55 Units/L [facility] AST 50 10 - 50 Units/L [facility] Blood 02/25/2024 4:06 AM CDT 02/25/2024 4:17 AM CDT us [place] NP LAB BLOOD ORDERABLES Final Result [facility] [place] [address] * XR Chest PA Lateral 2 Views (02/24/2024 1:55 PM CDT) Anatomical Region Laterality Modality Body, Chest N/A Computed Radiogr aphy 02/24/2024 3:11 PM CDT Impressions 02/24/2024 4:16 PM CDT The current study is compared with the prior radiograph dated ??02/19/2024 Interval removal of right internal jugular approach central venous catheter. ??Surgical clips overlie right upper quadrant and left upper quadrant. No pneumothorax. ??Slight interval increase in size in small bilateral pleural effusions. ??Patchy retrocardiac opacities are consistent with multifocal, cavitary pneumonia, which is better characterized on prior chest CT. ??Stable cardiomegaly. Dictated by: Marlene Berry MD The radiology attending physician has personally reviewed this study, and had reviewed and/or edited this written report and agrees with it. Electronically signed by: Magdi Knutson M.D. Narrative 02/24/2024 4:16 PM CDT EXAMINATION: 2 view chest radiograph Procedure Note Magdi Knutson MD - 02/24/2024 EXAMINATION: 2 view chest radiograph IMPRESSION: The current study is compared with the prior radiograph dated 02/19/2024 Interval removal of right internal jugular approach central venous catheter. Surgical clips overlie right upper quadrant and left upper quadrant. No pneumothorax. Slight interval increase in size in small bilateral pleural effusions. Patchy retrocardiac opacities are consistent with multifocal, cavitary pneumonia, which is better characterized on prior chest CT. Stable cardiomegaly. Dictated by: Marlene Berry MD The radiology attending physician has personally reviewed this study, and had reviewed and/or edited this written report and agrees with it. Electronically signed by: Magdi Knutson M.D. Roxann Craft MD IMG XR PROCEDURES Final Result * Blood culture Blood (02/24/2024 12:02 PM CDT) Report Final Report: No growth Blood 02/24/2024 12:0 2 PM CDT 02/24/2024 12:13 PM CDT Narrative [facility] - 02/28/2024 4:00 PM CDT From a different site than #1. Collection->Peripheral 1. ?Blood cultures are incubated for 4 days on a continuously monitored blood culture system. The first report of a negative culture is issued within 24 hours of receipt of the specimen in the laboratory. 2. ?Positive culture results are reported as soon as they are detected. 3. ?The most important factor for detection of microbes in the setting of bloodstream infection is the volume of blood submitted for culture. Failure to collect an optimal blood volume can result in false negative blood cultures. For pediatric patients, the recommended blood volume to collect is 1 mL of blood per year of patient age (up to 20 mL) per blood culture set. For adult patients, 20 mL of blood, divided equally between aerobic and anaerobic blood culture bottles, is recommended for each blood culture set. 4. ?For blood cultures with Gram-positive cocci, a rapid molecular test for organism identification may be performed using the [employer] Gram-Positive Blood Culture Assay. This assay detects microbial DNA in positive blood culture broth via hybridization of target DNA to capture oligonucleotides on a microarray. This assay has been cleared by the [place] Food and Drug Administration and its performance characteristics have been verified by the [facility]. 5. ?For questions about this culture, contact the Microbiology Laboratory at [phone]. Interpretive data was last revised on 2020. Roxann Craft MD LAB MICROBIOLOGY - GENERAL ORD ERABLES Final Result [facility] [place] [address] * Blood culture Blood (02/24/2024 12:02 PM CDT) Report Final Report: No growth Blood 02/24/2024 12:0 2 PM CDT 02/24/2024 12:13 PM CDT Narrative [facility] - 02/28/2024 4:00 PM CDT Collection->Peripheral 1. ?Blood cultures are incubated for 4 days on a continuously monitored blood culture system. The first report of a negative culture is issued within 24 hours of receipt of the specimen in the laboratory. 2. ?Positive culture results are reported as soon as they are detected. 3. ?The most important factor for detection of microbes in the setting of bloodstream infection is the volume of blood submitted for culture. Failure to collect an optimal blood volume can result in false negative blood cultures. For pediatric patients, the recommended blood volume to collect is 1 mL of blood per year of patient age (up to 20 mL) per blood culture set. For adult patients, 20 mL of blood, divided equally between aerobic and anaerobic blood culture bottles, is recommended for each blood culture set. 4. ?For blood cultures with Gram-positive cocci, a rapid molecular test for organism identification may be performed using the [employer] Gram-Positive Blood Culture Assay. This assay detects microbial DNA in positive blood culture broth via hybridization of target DNA to capture oligonucleotides on a microarray. This assay has been cleared by the [place] Food and Drug Administration and its performance characteristics have been verified by the [facility]. 5. ?For questions about this culture, contact the Microbiology Laboratory at [phone]. Interpretive data was last revised on 2020. us Roxann Craft MD LAB MICROBIOLOGY - GENERAL ORD ERABLES Final Result [facility] [place] [address] * eGFR (02/24/2024 3:58 AM CDT) [facility] eGFR >90 >=60 mL/min/1. 73 m2 Comment: [...] interpretive data was last reviewed 2021. Blood 02/24/2024 3:58 AM CDT 02/24/2024 4:21 AM CDT La Granger COORDINATOR OF PLACEMENT LAB BLOOD ORDERABLES Final Result [facility] [place] [address] * (ABNORMAL) Differential, auto (02/24/2024 3:58 AM CDT) Neutrophil abs 4.3 1.5 - 6.5 K/cumm Imm gran abs 0.5(H) 0.0 - 0.1 K/cumm [facility] Lymphocyte abs 3.3 0.8 - 3.3 K/cumm [facility] Monocyte abs 1.5(H) 0.2 - 0.8 K/cumm [facility] Eosinophil abs 0.1 0.0 - 0.5 K/cumm [facility] Basophil abs 0.1 0.0 - 0.1 K/cumm [facility] Neutrophil pct 44.2 % [facility] Comment: Confirmed by smear review Interpretive Data Percent cell count reference ranges are not reported, since discordance with absolute values may lead to misinterpretation of CBC data. Current Interpretive Data was last revised on 2018. Imm gran pct 5.0 % [facility] Comment: Interpretive Data Percent cell count reference ranges are not reported, since discordance with absolute values may lead to misinterpretation of CBC data. Current Interpretive Data was last revised on 2018. Lymphocyte pct 33.9 % [facility] Comment: Interpretive Data Percent cell count reference ranges are not reported, since discordance with absolute values may lead to misinterpretation of CBC data. Current Interpretive Data was last revised on 2018. Monocyte pct 15.5 % [facility] Comment: Interpretive Data Percent cell count reference ranges are not reported, since discordance with absolute values may lead to misinterpretation of CBC data. Current Interpretive Data was last revised on 2018. Eosinophil pct 0.7 % [facility] Comment: Interpretive Data Percent cell count reference ranges are not reported, since discordance with absolute values may lead to misinterpretation of CBC data. Current Interpretive Data was last revised on 2018. Basophil pct 0.7 % [facility] Comment: Interpretive Data Percent cell count reference ranges are not reported, since discordance with absolute values may lead to misinterpretation of CBC data. Current Interpretive Data was last revised on 2018. Blood 02/24/2024 3:58 AM CDT 02/24/2024 4:21 AM CDT [place] Granger COORDINATOR OF PLACEMENT LAB BLOOD ORDERABLES Final Result [facility] [place] [address] * Tacrolimus level trough (02/24/2024 3:58 AM CDT) Tacrolimus trough 8.1 ng/mL Comment: Interpretive Data Testing performed by liquid chromatography-tandem mass spectrometry. ??Therapeutic concentrations vary depending on type of transplanted organ and time elapsed since transplant. ??Typical trough concentrations range from 5-15 ng/mL. ??This test was developed and its performance characteristics determined by the [facility] consistent with CLIA requirements. ??This test has not been cleared or approved by the [place] Food and Drug administration. ??Current interpretive data last reviewed 2020. Blood 02/24/2024 3:58 AM CDT 02/24/2024 4:21 AM CDT us Keri Reed MD LAB BLOOD ORDERABLES Final Result [facility] [place] [address] * (ABNORMAL) CBC with auto differential (02/24/2024 3:58 AM CDT) [facility] WBC 9.8 3.8 - 9.9 K/cumm Hgb 10.7(L) 13.0 - 17.5 g/dL [facility] Hct 28.6(L) 38.9 - 50.3 % [facility] Plt 79(L) 150 - 400 K/cumm [facility] MPV 13.4(H) 9.1 - 12.3 fL [facility] RBC 2.88(L) 4.30 - 5.80 M/cumm [facility] MCV 99.3(H) 81.3 - 96.4 fL [facility] MCH 37.2(H) 27.1 - 33.3 pg [facility] MCHC 37.4(H) 32.3 - 35.7 g/dL [facility] RDW CV 18.7(H) 11.1 - 14.9 % [facility] RDW SD 63.4(H) 35.7 - 48.1 fL [facility] NRBC abs 0.00 0.00 - 0.01 K/cumm [facility] Blood 02/24/2024 3:58 AM CDT 02/24/2024 4:21 AM CDT us La Granger NP LAB BLOOD ORDERABLES Final Result [facility] Department [place] [address] * Phosphorus (02/24/2024 3:58 AM CDT) [facility] Phosphorus, pl 2.6 2.3 - 4.5 mg/dL Blood 02/24/2024 3:58 AM CDT 02/24/2024 4:21 AM CDT La Elizabeth Granger LAB BLOOD ORDERABLES Final Result Performing Organization Address City/[facility]/ZIP Co de Phone Number [facility] Department [place] [address] * Magnesium (02/24/2024 3:58 AM CDT) [facility] Magnesium 1.8 1.4 - 2.5 mg/dL Blood 02/24/2024 3:58 AM CDT 02/24/2024 4:21 AM CDT La Tiptonstacie LAB BLOOD ORDERABLES Final Result Performing Organization Address [facility] de Phone Number [facility] Department [place] [address] * (ABNORMAL) Comprehensive metabolic panel (02/24/2024 3:58 AM CDT) [facility] Sodium 139 135 - 145 mmol/L Potassium, pl 4.0 3.3 - 4.9 mmol/L [facility] Chloride 109 97 - 110 mmol/L [facility] CO2 25 22 - 32 mmol/L [facility] Anion gap 5 2 - 15 mmol/L [facility] BUN 23 6 - 25 mg/dL [facility] Creatinine 0.81 0.80 - 1.30 mg/dL [facility] Glucose 135 70 - 199 mg/dL [facility] Comment: Interpretive Data Fasting glucose >/= [...] interpretive data was last revised 2022. Calcium 7.5(L) 8.5 - 10.3 mg/dL [facility] Bilirubin, total 2.9(H) 0.1 - 1.2 mg/dL [facility] Protein, pl 4.4(L) 6.5 - 8.5 g/dL [facility] Albumin 2.2(L) 3.5 - 5.0 g/dL [facility] Alk phos 171(H) 40 - 130 Units/L [facility] ALT 12 7 - 55 Units/L [facility] AST 48 10 - 50 Units/L [facility] Blood 02/24/2024 3:58 AM CDT 02/24/2024 4:21 AM CDT La Granger NP LAB BLOOD ORDERABLES Final Result [facility] [place] [address] * Type and screen (02/24/2024 3:58 AM CDT) ABO Rh A Positive Carol, indirect Negative [facility] Comment:Patient has previous antibody history Blood 02/24/2024 3:58 AM CDT 02/24/2024 4:20 AM CDT Narrative [facility] - 02/24/2024 6:01 AM CDT Has the patient had Daratumumab or Isatuximab in the past 6 months?->Unknown Keri Reed MD LAB BLOOD BANK TEST O RDERABLES Final Result [facility] [place] [address] * (ABNORMAL) Blood culture Blood Peripheral (02/23/2024 11:22 AM CDT) Direct Specimen Exam Molecular Analysis: Staphylococcus species detected by the Verigene Blood Culture Nucleic Acid Test. This is most suggestive of a coagulase negative Staphylococcus species. Please refer to final culture-based result for confirmation. This test does not exclude the possibility of a mixed bacterial infection. Notification of: Staphylococcus species called to and read back by: Roxann Craft MD [phone] on 02/24/2024 12:37:42 by: Lily Chen([facility]) Direct Specimen Exam Stain: Gram Positive Cocci in clusters Time to culture positivity (aerobic media): 21.6 hours [facility] Report Final Report: Staphylococcus capitis Single blood culture positive for this microorganism. ??Isolate is a possible contaminant. If a similar isolate is recovered from a second blood culture collected within 3 days of this culture, both will be evaluated and, if determined to be the same species, antimicrobial susceptibility testing will be performed. (.) [facility] Organism STAPHYLOCOCCUS CAPITIS [facility] Blood (Peripheral) 02/23/2024 11:22 AM CDT 02/23/2024 11:37 AM CDT Narrative [facility] - 02/28/2024 1:26 PM CDT Collection->Peripheral 1. ?Blood cultures are incubated for 4 days on a continuously monitored blood culture system. The first report of a negative culture is issued within 24 hours of receipt of the specimen in the laboratory. 2. ?Positive culture results are reported as soon as they are detected. 3. ?The most important factor for detection of microbes in the setting of bloodstream infection is the volume of blood submitted for culture. Failure to collect an optimal blood volume can result in false negative blood cultures. For pediatric patients, the recommended blood volume to collect is 1 mL of blood per year of patient age (up to 20 mL) per blood culture set. For adult patients, 20 mL of blood, divided equally between aerobic and anaerobic blood culture bottles, is recommended for each blood culture set. 4. ?For blood cultures with Gram-positive cocci, a rapid molecular test for organism identification may be performed using the [employer]ued Relations[employer] Gram-Positive Blood Culture Assay. This assay detects microbial DNA in positive blood culture broth via hybridization of target DNA to capture oligonucleotides on a microarray. This assay has been cleared by the [place] Food and Drug Administration and its performance characteristics have been verified by the [facility]. 5. ?For questions about this culture, contact the Microbiology Laboratory at [phone]. Interpretive data was last revised on 2020. Keri Reed MD LAB [facility]OLOGY - [facility] ORDERABLES Final Result [facility] [place] [address] * Blood culture Blood Peripheral (02/23/2024 11:22 AM CDT) Report Final Report: No growth Blood (Peripheral) 02/23/2024 11:22 AM CDT 02/23/2024 11:37 AM CDT Narrative [facility] - 02/27/2024 12:00 PM CDT Collection->Peripheral 1. ?Blood cultures are incubated for 4 days on a continuously monitored blood culture system. The first report of a negative culture is issued within 24 hours of receipt of the specimen in the laboratory. 2. ?Positive culture results are reported as soon as they are detected. 3. ?The most important factor for detection of microbes in the setting of bloodstream infection is the volume of blood submitted for culture. Failure to collect an optimal blood volume can result in false negative blood cultures. For pediatric patients, the recommended blood volume to collect is 1 mL of blood per year of patient age (up to 20 mL) per blood culture set. For adult patients, 20 mL of blood, divided equally between aerobic and anaerobic blood culture bottles, is recommended for each blood culture set. 4. ?For blood cultures with Gram-positive cocci, a rapid molecular test for organism identification may be performed using the [employer] Gram-Positive Blood Culture Assay. This assay detects microbial DNA in positive blood culture broth via hybridization of target DNA to capture oligonucleotides on a microarray. This assay has been cleared by the [place] Food and Drug Administration and its performance characteristics have been verified by the [facility]. 5. ?For questions about this culture, contact the Microbiology Laboratory at [phone]. Interpretive data was last revised on 2020. Keri Reed MD LAB MICROBIOLOGY - [facility] ORDERABLES Final Result [facility] [place] [address] * (ABNORMAL) Manual Differential (02/23/2024 5:09 AM CDT) Differential Manual Cells Counted [address] [facility] Neutrophil abs 5.0 1.5 - 6.5 K/cumm [facility] Imm gran abs 0.0 0.0 - 0.1 K/cumm [facility] Lymphocyte abs 5.9(H) 0.8 - 3.3 K/cumm [facility] Monocyte abs 3.0(H) 0.2 - 0.8 K/cumm [facility] Eosinophil abs 0.1 0.0 - 0.5 K/cumm [facility] Neutrophil pct 35.6 % [facility] Comment: Interpretive Data Percent cell count reference ranges are not reported, since discordance with absolute values may lead to misinterpretation of CBC data. Current Interpretive Data was last revised on 2018. Lymphocyte pct 42.4 % [facility] Comment: Interpretive Data Percent cell count reference ranges are not reported, since discordance with absolute values may lead to misinterpretation of CBC data. Current Interpretive Data was last revised on 2018. Monocyte pct 21.2 % [facility] Comment: Interpretive Data Percent cell count reference ranges are not reported, since discordance with absolute values may lead to misinterpretation of CBC data. Current Interpretive Data was last revised on 2018. Eosinophil pct 0.8 % [facility] Comment: Interpretive Data Percent cell count reference ranges are not reported, since discordance with absolute values may lead to misinterpretation of CBC data. Current Interpretive Data was last revised on 2018. Blood 02/23/2024 5:09 AM CDT 02/23/2024 5:30 AM CDT us [place] Granger COORDINATOR OF PLACEMENT LAB BLOOD ORDERABLES Final Result Performing Organization Address City/[facility]/ZIP Co de Phone Number [facility] [place] [address] * eGFR (02/23/2024 5:09 AM CDT) eGFR >90 >=60 mL/min/1. 73 [...] interpretive data was last reviewed 2021. Blood 02/23/2024 5:09 AM CDT 02/23/2024 5:23 AM CDT us La Granger COORDINATOR OF PLACEMENT LAB BLOOD ORDERABLES Final Result Performing Organization Address City/[facility]/ZIP Co de Phone Number [facility] [place] [address] * Tacrolimus level trough (02/23/2024 5:09 AM CDT) [facility] Tacrolimus trough 5.6 ng/mL Comment: Interpretive Data Testing performed by liquid chromatography-tandem mass spectrometry. ??Therapeutic concentrations vary depending on type of transplanted organ and time elapsed since transplant. ??Typical trough concentrations range from 5-15 ng/mL. ??This test was developed and its performance characteristics determined by the [facility] consistent with CLIA requirements. ??This test has not been cleared or approved by the [place] Food and Drug administration. ??Current interpretive data last reviewed 2020. Blood 02/23/2024 5:09 AM CDT 02/23/2024 5:23 AM CDT Keri Reed MD LAB BLOOD ORDERABLES Final Result Performing Organization Address City/State/[facility] Co de Phone Number [facility] [place] [address] * (ABNORMAL) CBC with auto differential (02/23/2024 5:09 AM CDT) [facility] WBC 13.9(H) 3.8 - 9.9 K/cumm Hgb 10.7(L) 13.0 - 17.5 g/dL [facility] Hct 28.9(L) 38.9 - 50.3 % [facility] Plt 60(L) 150 - 400 K/cumm [facility] MPV 13.8(H) 9.1 - 12.3 fL [facility] RBC 2.92(L) 4.30 - 5.80 M/cumm [facility] MCV 99.0(H) 81.3 - 96.4 fL [facility] MCH 36.6(H) 27.1 - 33.3 pg [facility] MCHC 37.0(H) 32.3 - 35.7 g/dL [facility] RDW CV 17.8(H) 11.1 - 14.9 % [facility] RDW SD 61.8(H) 35.7 - 48.1 fL [facility] NRBC abs 0.00 0.00 - 0.01 K/cumm [facility] Blood 02/23/2024 5:09 AM CDT 02/23/2024 5:23 AM CDT La Granger COORDINATOR OF PLACEMENT LAB BLOOD ORDERABLES Final Result [facility] [place] [address] * Phosphorus (02/23/2024 5:09 AM CDT) [facility] Phosphorus, pl 2.5 2.3 - 4.5 mg/dL Blood 02/23/2024 5:09 AM CDT 02/23/2024 5:23 AM CDT La Granger COORDINATOR OF PLACEMENT LAB BLOOD ORDERABLES Final Result Performing Organization Address City/[facility]/ZIP Co de Phone Number [facility] [place] [address] * Magnesium (02/23/2024 5:09 AM CDT) [facility] Magnesium 1.6 1.4 - 2.5 mg/dL Blood 02/23/2024 5:09 AM CDT 02/23/2024 5:23 AM CDT La Granger COORDINATOR OF PLACEMENT LAB [place]LOOD [place] [address] * (ABNORMAL) Comprehensive metabolic panel (02/23/2024 5:09 AM CDT) [facility] Sodium 135 135 - 145 mmol/L Potassium, pl 4.7 3.3 - 4.9 mmol/L [facility] Chloride 106 97 - 110 mmol/L [facility] CO2 23 22 - 32 mmol/L [facility] Anion gap 6 2 - 15 mmol/L [facility] BUN 21 6 - 25 mg/dL [facility] Creatinine 0.83 0.80 - 1.30 mg/dL [facility] Glucose 107 70 - 199 mg/dL [facility] Comment: Interpretive Data Fasting glucose >/= [...] interpretive data was last revised 2022. Calcium 7.6(L) 8.5 - 10.3 mg/dL [facility] Bilirubin, total 4.3(H) 0.1 - 1.2 mg/dL [facility] Protein, pl 4.2(L) 6.5 - 8.5 g/dL [facility] Albumin 2.2(L) 3.5 - 5.0 g/dL [facility] Alk phos 167(H) 40 - 130 Units/L [facility] ALT 13 7 - 55 Units/L [facility] AST 53(H) 10 - 50 Units/L [facility] Blood 02/23/2024 5:09 AM CDT 02/23/2024 5:23 AM CDT us La Granger COORDINATOR OF PLACEMENT LAB BLOOD ORDERABLES Final Result [facility] [place] [address] * Blood culture Blood Peripheral (02/22/2024 2:08 PM CDT) Report Final Report: No growth Blood (Peripheral) 02/22/2024 2:08 PM CDT 02/22/2024 2:38 PM CDT Narrative [facility] - 02/26/2024 4:01 PM CDT Collection->Peripheral 1. ?Blood cultures are incubated for 4 days on a continuously monitored blood culture system. The first report of a negative culture is issued within 24 hours of receipt of the specimen in the laboratory. 2. ?Positive culture results are reported as soon as they are detected. 3. ?The most important factor for detection of microbes in the setting of bloodstream infection is the volume of blood submitted for culture. Failure to collect an optimal blood volume can result in false negative blood cultures. For pediatric patients, the recommended blood volume to collect is 1 mL of blood per year of patient age (up to 20 mL) per blood culture set. For adult patients, 20 mL of blood, divided equally between aerobic and anaerobic blood culture bottles, is recommended for each blood culture set. 4. ?For blood cultures with Gram-positive cocci, a rapid molecular test for organism identification may be performed using the [employer] Gram-Positive Blood Culture Assay. This assay detects microbial DNA in positive blood culture broth via hybridization of target DNA to capture oligonucleotides on a microarray. This assay has been cleared by the [place] Food and Drug Administration and its performance characteristics have been verified by the [facility]. 5. ?For questions about this culture, contact the Microbiology Laboratory at [phone]. Interpretive data was last revised on 2020. Keri Reed MD LAB MICROBIOLOGY - [facility] ORDERABLES Final Result [facility] [place] [address] * Blood culture Blood Peripheral (02/22/2024 2:08 PM CDT) Report Final Report: No growth Blood (Peripheral) 02/22/2024 2:08 PM CDT 02/22/2024 2:38 PM CDT Narrative [facility] - 02/26/2024 4:01 PM CDT Collection->Peripheral 1. ?Blood cultures are incubated for 4 days on a continuously monitored blood culture system. The first report of a negative culture is issued within 24 hours of receipt of the specimen in the laboratory. 2. ?Positive culture results are reported as soon as they are detected. 3. ?The most important factor for detection of microbes in the setting of bloodstream infection is the volume of blood submitted for culture. Failure to collect an optimal blood volume can result in false negative blood cultures. For pediatric patients, the recommended blood volume to collect is 1 mL of blood per year of patient age (up to 20 mL) per blood culture set. For adult patients, 20 mL of blood, divided equally between aerobic and anaerobic blood culture bottles, is recommended for each blood culture set. 4. ?For blood cultures with Gram-positive cocci, a rapid molecular test for organism identification may be performed using the [employer] Gram-Positive Blood Culture Assay. This assay detects microbial DNA in positive blood culture broth via hybridization of target DNA to capture oligonucleotides on a microarray. This assay has been cleared by the [place] Food and Drug Administration and its performance characteristics have been verified by the [facility]. 5. ?For questions about this culture, contact the Microbiology Laboratory at [phone]. Interpretive data was last revised on 2020. us Keri Reed MD LAB MICROBIOLOGY - [facility] ORDERABLES Final Result [facility] [place] [address] * Type and screen (02/22/2024 3:00 AM CDT) Carol, indirect Negative Comment:Patient has previous antibody history ABO Rh A Positive [facility] Blood 02/22/2024 3:00 AM CDT 02/22/2024 4:06 AM CDT Narrative [facility] - 02/22/2024 4:58 AM CDT Has the patient had Daratumumab or Isatuximab in the past 6 months?->Unknown us Keri Reed MD LAB BLOOD BANK TEST O RDERABLES Final Result Performing Organization Address [facility] Co de Phone Number [facility] [place] [address] * eGFR (02/22/2024 2:30 AM CDT) eGFR >90 >=60 mL/min/1. 73 [...] interpretive data was last reviewed 2021. Blood 02/22/2024 2:30 AM CDT 02/22/2024 3:54 AM CDT us La Granger NP LAB BLOOD ORDERABLES Final Result Performing Organization Address [facility] Co de Phone Number [facility] [place] [address] * (ABNORMAL) Differential, auto (02/22/2024 2:30 AM CDT) Neutrophil abs 6.4 1.5 - 6.5 K/cumm Imm gran abs 1.2(H) 0.0 - 0.1 K/cumm [facility] Lymphocyte abs 2.2 0.8 - 3.3 K/cumm [facility] Monocyte abs 4.1(H) 0.2 - 0.8 K/cumm [facility] Eosinophil abs 0.0 0.0 - 0.5 K/cumm [facility] Basophil abs 0.1 0.0 - 0.1 K/cumm [facility] Neutrophil pct 46.0 % [facility] Comment: Interpretive Data Percent cell count reference ranges are not reported, since discordance with absolute values may lead to misinterpretation of CBC data. Current Interpretive Data was last revised on 2018. Imm gran pct 8.4 % [facility] Comment: Interpretive Data Percent cell count reference ranges are not reported, since discordance with absolute values may lead to misinterpretation of CBC data. Current Interpretive Data was last revised on 2018. Lymphocyte pct 15.5 % [facility] Comment: Interpretive Data Percent cell count reference ranges are not reported, since discordance with absolute values may lead to misinterpretation of CBC data. Current Interpretive Data was last revised on 2018. Monocyte pct 29.3 % [facility] Comment: Interpretive Data Percent cell count reference ranges are not reported, since discordance with absolute values may lead to misinterpretation of CBC data. Current Interpretive Data was last revised on 2018. Eosinophil pct 0.2 % [facility] Comment: Interpretive Data Percent cell count reference ranges are not reported, since discordance with absolute values may lead to misinterpretation of CBC data. Current Interpretive Data was last revised on 2018. Basophil pct 0.6 % [facility] Comment: Interpretive Data Percent cell count reference ranges are not reported, since discordance with absolute values may lead to misinterpretation of CBC data. Current Interpretive Data was last revised on 2018. Blood 02/22/2024 2:30 AM CDT 02/22/2024 3:54 AM CDT La Granger NP LAB BLOOD ORDERABLES Final Result Performing Organization Address [facility] Co de Phone Number [facility] Department [place] [address] * Tacrolimus level trough (02/22/2024 2:30 AM CDT) Pathologist [facility] Tacrolimus trough 8.7 ng/mL Comment: Interpretive Data Testing performed by liquid chromatography-tandem mass spectrometry. ??Therapeutic concentrations vary depending on type of transplanted organ and time elapsed since transplant. ??Typical trough concentrations range from 5-15 ng/mL. ??This test was developed and its performance characteristics determined by the [facility] consistent with CLIA requirements. ??This test has not been cleared or approved by the US Food and Drug administration. ??Current interpretive data last reviewed 2020. Blood 02/22/2024 2:30 AM CDT 02/22/2024 3:54 AM CDT Keri Reed MD LAB BLOOD ORDERABLES Final Result Performing Organization Address [facility] de Phone Number [facility] Department [place] [address] * (ABNORMAL) CBC with auto differential (02/22/2024 2:30 AM CDT) [facility] WBC 13.9(H) 3.8 - 9.9 K/cumm Hgb 11.9(L) 13.0 - 17.5 g/dL [facility] Comment:Result may be inaccu rate due to increased plasma turbidity. Consider redraw. Hct 31.0(L) 38.9 - 50.3 % [facility] Plt 74(L) 150 - 400 K/cumm [facility] MPV 12.9(H) 9.1 - 12.3 fL [facility] RBC 3.25(L) 4.30 - 5.80 M/cumm [facility] MCV 95.4 81.3 - 96.4 fL [facility] MCH 36.6(H) 27.1 - 33.3 pg [facility] Comment:Result may be inaccu rate due to increased plasma turbidity. Consider redraw. MCHC 38.4(H) 32.3 - 35.7 g/dL [facility] Comment:Result may be inaccu rate due to increased plasma turbidity. Consider redraw. RDW CV 17.2(H) 11.1 - 14.9 % [facility] RDW SD 57.8(H) 35.7 - 48.1 fL [facility] NRBC abs 0.02(H) 0.00 - 0.01 K/cumm [facility] Blood 02/22/2024 2:30 AM CDT 02/22/2024 3:54 AM CDT La Granger NP LAB BLOOD ORDERABLES Final Result [facility] [place] [address] * Phosphorus (02/22/2024 2:30 AM CDT) Phosphorus, pl 2.5 2.3 - 4.5 mg/dL Blood 02/22/2024 2:30 AM CDT 02/22/2024 3:54 AM CDT La Granger COORDINATOR OF PLACEMENT LAB BLOOD ORDERABLES Final Result [facility] [place] [address] * Magnesium (02/22/2024 2:30 AM CDT) Magnesium 1.6 1.4 - 2.5 mg/dL Blood 02/22/2024 2:30 AM CDT 02/22/2024 3:54 AM CDT La Saldanalle Hailey WOLFE LAB BLOOD ORDERABLES Final Result [facility] [place] [address] * (ABNORMAL) Comprehensive metabolic panel (02/22/2024 2:30 AM CDT) Sodium 133(L) 135 - 145 mmol/L Potassium, pl 4.8 3.3 - 4.9 mmol/L [facility] Chloride 104 97 - 110 mmol/L [facility] CO2 21(L) 22 - 32 mmol/L [facility] Anion gap 8 2 - 15 mmol/L [facility] BUN 20 6 - 25 mg/dL [facility] Creatinine 0.81 0.80 - 1.30 mg/dL [facility] Glucose 96 70 - 199 mg/dL [facility] Comment: Interpretive Data Fasting glucose >/= [...] interpretive data was last revised 2022. Calcium 7.6(L) 8.5 - 10.3 mg/dL [facility] Bilirubin, total 4.1(H) 0.1 - 1.2 mg/dL [facility] Protein, pl 4.6(L) 6.5 - 8.5 g/dL [facility] Albumin 2.4(L) 3.5 - 5.0 g/dL [facility] Alk phos 184(H) 40 - 130 Units/L [facility] ALT 19 7 - 55 Units/L [facility] AST 58(H) 10 - 50 Units/L [facility] Blood 02/22/2024 2:30 AM CDT 02/22/2024 3:54 AM CDT La Granger NP LAB BLOOD ORDERABLES Final Result Performing Organization Address [facility] Co de Phone Number [facility] [place] [address] * Uric acid (02/22/2024 2:30 AM CDT) Uric acid 3.0 3.0 - 8.0 mg/dL Blood 02/22/2024 2:30 AM CDT 02/22/2024 3:54 AM CDT Keri Reed MD LAB BLOOD ORDERABLES Final Result Performing Organization Address [facility] de Phone Number [facility] [place] [address] * (ABNORMAL) Lactate dehydrogenase (LD) (02/22/2024 2:30 AM CDT) Lactate dehydrogenase (LDH) 491(H) 100 - 250 Units/L Blood 02/22/2024 2:30 AM CDT 02/22/2024 3:54 AM CDT Result [facility] Keri Reed MD LAB BLOOD ORDERABLES Final Result Performing Organization Address [facility] de Phone Number [facility] [place] [address] * (ABNORMAL) Protime-INR (02/22/2024 2:30 AM CDT) PT 16.8(H) 10.3 - 13.7 sec INR 1.47(H) 0.90 - 1.20 [facility] Comment: Interpretive data Oral anticoagulant therapeutic ranges: Venous thromboembolism prophylaxis or treatment: 2.0-3.0 CARDIOLOGY Standard range: 2.0-3.0 High-intensity range: 2.5-3.5 Refer to indication-specific guidelines for appropriate target ranges for prosthetic heart valve replacement. Current interpretive data was last revised on 2019. Blood 02/22/2024 2:30 AM CDT 02/22/2024 5:00 AM CDT us Keri Reed MD LAB BLOOD ORDERABLES Final Result Performing Organization Address [facility] de Phone Number [facility] [place] [address] * (ABNORMAL) aPTT (02/22/2024 2:30 AM CDT) aPTT 40(H) 28 - 38 sec Comment: Interpretive Data Heparin therapeutic range: 66.0 - 100.0 seconds. Range based on correlation with therapeutic heparin activity range of 0.3 - 0.7 Units/mL. Current interpretive data was last revised on 2023. Blood 02/22/2024 2:30 AM CDT 02/22/2024 5:00 AM CDT us Keri Reed MD LAB BLOOD ORDERABLES Final Result Performing Organization Address [facility] de Phone Number [facility] [place] [address] * TRANSTHORACIC ECHO (TTE) COMPLETE W DOPPLER/CF WO CONTRAST (02/21/2024 12:36 PM CDT) LV EF 59 % CARDIOREPORT Anatomical Region Laterality Modality Ultrasound 02/21/2024 11:1 0 AM CDT Narrative 02/21/2024 12:51 PM CDT Patient name: Beka Lares Date of test: 02/21/2024 Type of test: TTE w/Doppler Hospital #: 0 Date of : 1995 (M) Chucking Machine Set Up Operator: Jack Bello RDCS Referring Physician: LA GRANGER MD Contrast Agent: Contrast Administered by: Supervised/Interpreted by: Beka Aden MD Diagnosis: BACTEREMIA Location: [facility] Reason for test: bacteremia MV Structure: Normal, ?MV Motion: Normal, ?? Mitral Annulus: Normal AV Structure: tricuspid and is Normal, ?? AV Motion: Normal Aotic root: Normal, ?TM: Normal, ?? PV: Normal Valvular Vegetations: none seen, ?Mass/Thrombi: none seen RA: Normal Measurements: ?M-Mode ?Normal ? Aotic Root: ? <3.8 ? LA: ? <4.0 ? RV: ? <2.8 ? LV(ED): ? <5.7 ? LV(ES): ? Variable ?2D Linear Normal ? Aotic Root: 3.2 cm ?<4.0 ? Ao Indexed: 1.8 cm/M2 <2.0 ? LA: ? <4.0 ? RV: ? 4.0 cm ?<4.2 ? LV(ED): ? 4.3 cm ?<5.9 ? LV(ES): ? 3.0 cm ?<4.0 ?2D Vol. ?? Normal ?Indexed ?? Indexed Normal RA: ? 54.0 ml ? 30.3 ml/M2 ?11-39 ? LA: ? 62.0 ml ? 34.8 ml/M2 ?16-34 ? RV: ? <12.7 ? LV(ED): ? 82.0 ml ?? 62-150 ?46.0 ml/M2 ?<75 ? LV(ES): ? 34.0 ml ?? 21-61 ? 19.1 ml/M2 ?<32 ?3D Vol. ? Indexed Normal LV(ED): ?<75 ? LV(ES): ?<32 ? LV EF: 59 % ?? (Normal: >=52%) ?? LV Septum: 0.9 cm ?(Normal: <1.0 cm) Wall Motion Scoring (1=Normal 2=Hypo 3=Akinetic 4=Dyskin./Aneurysm 0=Not visualized) Parasternal [place]:MAS=1 BAS=1 MIL=1 NGUYỄN=1 Parasternal [place]:MAS=1 MIS=1 OK=1 MIL=1 MAL=1 MA=1 Apical 4 Chambers:=1 MIS=1 BIS=1 BAL=1 MAL=1 AL=1 AC=1 Apical 2 Chambers:AI=1 OK=1 BI=1 BA=1 MA=1 AA=1 AC=1 LV Global Longitudinal Strain: -22.2% ??(Normal <-17%) RV Global Longitudinal Strain: LV Function: Normal LV Ejection Fraction, (EF=52-72%) RV Function: Normal Septal Motion: Normal Pericardial Effusion: none seen Atrial Septum: Normal DOPPLER/COLOR FLOW DOPPLER RESULTS: Diastolic Function: Normal Tricuspid Valve: mild TV regurgitation Pulmonic Valve: Mild DC AV Regurgitation: No AR seen AV Stenosis: no AV Area: ??cm2 AV Pressure Gradient (mmHg): Mean: 0, Peak:0 MV Regurgitation: No MR seen MV Stenosis: no MS MV Area: ??cm2 MV Pressure Gradient (mmHg): Mean: 0 MV ERO: ??cm Regurg. Vol.: ??ml/beat Regurg. Frac.: ??% PA Pressure: 30 mmHg DOPPLER/COLOR FOLOW DOPPLER COMMENTS: No AR seen, No MR seen, no , no MS, mild TV regurgitation, Mild DC. Diastolic function: Normal ??PVAT 140 / E:A 1.24 / Evel 109 / E/e' 9,6 / SUMMARY: Normal LV volume, mass, systolic function (LVEF 59%, GLS -22.2%). Normal diastolic function. Normal AV, MV. Normal LA size. Normal RV size/function. Mild TR. PASP 30 mmHg. Normal IVC/RAP. Catheter tip in RA. Normal aorta. No obvious valvular vegetations with fair imaging resolution. Confirmed on ??02/21/2024 - 12:51:45 by Beka Aden MD By signing this report, the attending ship pilot dispatcher certifies that he or she has personally supervised and interpreted the echocardiogram and has reviewed and or edited and agrees with the written comments contained within the report. Procedure Beka Monroy MD - 02/21/2024 Patient name: Beka Lares Date of test: 02/21/2024 Type of test: TTE w/Doppler [facility] #: 0 Date of : 1995 (M) Chucking Machine Set Up Operator: Jack Bello RDCS Referring Physician: LA GRANGER MD Contrast Agent: Contrast Administered by: Supervised/Interpreted by: Beka Aden MD Diagnosis: BACTEREMIA Location: [facility] Reason for test: bacteremia MV Structure: Normal, MV Motion: Normal, Mitral Annulus: Normal AV Structure: tricuspid and is Normal, AV Motion: Normal Aotic root: Normal, TM: Normal, PV: Normal Valvular Vegetations: none seen, Mass/Thrombi: none seen RA: Normal Measurements: M-Mode Normal Aotic Root: <3.8 LA: <4.0 RV: <2.8 LV(ED): <5.7 LV(ES): Variable 2D Linear Normal Aotic Root: 3.2 cm <4.0 Ao Indexed: 1.8 cm/M2 <2.0 LA: <4.0 RV: 4.0 cm <4.2 LV(ED): 4.3 cm <5.9 LV(ES): 3.0 cm <4.0 2D Vol. Normal Indexed Indexed Normal RA: 54.0 ml 30.3 ml/M2 11-39 LA: 62.0 ml 34.8 ml/M2 16-34 RV: <12.7 LV(ED): 82.0 ml 62-150 46.0 ml/M2 <75 LV(ES): 34.0 ml 21-61 19.1 ml/M2 <32 3D Vol. Indexed Normal LV(ED): <75 LV(ES): <32 LV EF: 59 % (Normal: >=52%) LV Septum: 0.9 cm (Normal: <1.0 cm) Wall Motion Scoring (1=Normal 2=Hypo 3=Akinetic 4=Dyskin./Aneurysm 0=Not visualized) Parasternal [place]:MAS=1 BAS=1 MIL=1 NGUYỄN=1 Parasternal [place]:MAS=1 MIS=1 OK=1 MIL=1 MAL=1 MA=1 Apical 4 Chambers:=1 MIS=1 BIS=1 BAL=1 MAL=1 AL=1 AC=1 Apical 2 Chambers:AI=1 OK=1 BI=1 BA=1 MA=1 AA=1 AC=1 LV Global Longitudinal Strain: -22.2% (Normal <-17%) RV Global Longitudinal Strain: LV Function: Normal LV Ejection Fraction, (EF=52-72%) RV Function: Normal Septal Motion: Normal Pericardial Effusion: none seen Atrial Septum: Normal DOPPLER/COLOR FLOW DOPPLER RESULTS: Diastolic Function: Normal Tricuspid Valve: mild TV regurgitation Pulmonic Valve: Mild DC AV Regurgitation: No AR seen AV Stenosis: no AV Area: cm2 AV Pressure Gradient (mmHg): Mean: 0, Peak:0 MV Regurgitation: No MR seen MV Stenosis: no MS MV Area: cm2 MV Pressure Gradient (mmHg): Mean: 0 MV ERO: cm Regurg. Vol.: ml/beat Regurg. Frac.: % PA Pressure: 30 mmHg DOPPLER/COLOR FOLOW DOPPLER COMMENTS: No AR seen, No MR seen, no , no MS, mild TV regurgitation, Mild DC. Diastolic function: Normal PVAT 140 / E:A 1.24 / Evel 109 / E/e' 9,6 / SUMMARY: Normal LV volume, mass, systolic function (LVEF 59%, GLS -22.2%). Normal diastolic function. Normal AV, MV. Normal LA size. Normal RV size/function. Mild TR. PASP 30 mmHg. Normal IVC/RAP. Catheter tip in RA. Normal aorta. No obvious valvular vegetations with fair imaging resolution. Confirmed on 02/21/2024 - 12:51:45 by Beka Aden MD By signing this report, the attending ship pilot dispatcher certifies that he or she has personally supervised and interpreted the echocardiogram and has reviewed and or edited and agrees with the written comments contained within the report. us La Granger NP CV ECHO PROCEDURES F inal Result * eGFR (02/21/2024 5:19 AM CDT) Pathologist [facility] eGFR >90 >=60 mL/min/1. 73 m2 Comment: [...] interpretive data was last reviewed 2021. Blood 02/21/2024 5:19 AM CDT 02/21/2024 5:28 AM CDT La Granger NP LAB BLOOD ORDERABLES Final Result [facility] [place] [address] * (ABNORMAL) Differential, auto (02/21/2024 5:19 AM CDT) Pathologist [facility] Neutrophil abs 5.5 1.5 - 6.5 K/cumm Imm gran abs 0.6(H) 0.0 - 0.1 K/cumm [facility] Lymphocyte abs 2.0 0.8 - 3.3 K/cumm [facility] Monocyte abs 2.7(H) 0.2 - 0.8 K/cumm [facility] Eosinophil abs 0.0 0.0 - 0.5 K/cumm [facility] Basophil abs 0.1 0.0 - 0.1 K/cumm [facility] Neutrophil pct 50.5 % [facility] Comment: Interpretive Data Percent cell count reference ranges are not reported, since discordance with absolute values may lead to misinterpretation of CBC data. Current Interpretive Data was last revised on 2018. Imm gran pct 5.5 % [facility] Comment: Interpretive Data Percent cell count reference ranges are not reported, since discordance with absolute values may lead to misinterpretation of CBC data. Current Interpretive Data was last revised on 2018. Lymphocyte pct 18.2 % [facility] Comment: Interpretive Data Percent cell count reference ranges are not reported, since discordance with absolute values may lead to misinterpretation of CBC data. Current Interpretive Data was last revised on 2018. Monocyte pct 24.9 % [facility] Comment: Interpretive Data Percent cell count reference ranges are not reported, since discordance with absolute values may lead to misinterpretation of CBC data. Current Interpretive Data was last revised on 2018. Eosinophil pct 0.3 % [facility] Comment: Interpretive Data Percent cell count reference ranges are not reported, since discordance with absolute values may lead to misinterpretation of CBC data. Current Interpretive Data was last revised on 2018. Basophil pct 0.6 % [facility] Comment: Interpretive Data Percent cell count reference ranges are not reported, since discordance with absolute values may lead to misinterpretation of CBC data. Current Interpretive Data was last revised on 2018. Blood 02/21/2024 5:19 AM CDT 02/21/2024 5:28 AM CDT La Granger NP LAB BLOOD ORDERABLES Final Result [facility] [place] [address] * (ABNORMAL) Blood culture Blood Arm, right (02/21/2024 5:19 AM CDT) Direct Specimen Exam Stain: Gram Positive Cocci in clusters Time to culture positivity (aerobic media): 19.1 hours Report Final Report: Staphylococcus aureus For susceptibility results, refer to accession number [id number] on the blood culture from 02/18/2024 (.) [facility] Organism STAPHYLOCOCCUS AUREUS [facility] Blood (Arm, right) 02/21/2024 5:19 AM CDT 02/21/2024 6:04 AM CDT Narrative BROOKE BUTCHER - 02/27/2024 10:25 AM CDT Collection->Peripheral 1. ?Blood cultures are incubated for 4 days on a continuously monitored blood culture system. The first report of a negative culture is issued within 24 hours of receipt of the specimen in the laboratory. 2. ?Positive culture results are reported as soon as they are detected. 3. ?The most important factor for detection of microbes in the setting of bloodstream infection is the volume of blood submitted for culture. Failure to collect an optimal blood volume can result in false negative blood cultures. For pediatric patients, the recommended blood volume to collect is 1 mL of blood per year of patient age (up to 20 mL) per blood culture set. For adult patients, 20 mL of blood, divided equally between aerobic and anaerobic blood culture bottles, is recommended for each blood culture set. 4. ?For blood cultures with Gram-positive cocci, a rapid molecular test for organism identification may be performed using the [employer] Gram-Positive Blood Culture Assay. This assay detects microbial DNA in positive blood culture broth via hybridization of target DNA to capture oligonucleotides on a microarray. This assay has been cleared by the [place] Food and Drug Administration and its performance characteristics have been verified by the [facility]. 5. ?For questions about this culture, contact the Microbiology Laboratory at [phone]. Interpretive data was last revised on 2020. us Keri Reed MD LAB MICROBIOLOGY - NERAL ORDERABLES Final Result Performing Organization Address [facility]/ZIP Co de Phone Number [facility] Department [place] [address] * Tacrolimus level trough (02/21/2024 5:19 AM CDT) Pathologist [facility] Tacrolimus trough 4.9 ng/mL Comment: Interpretive Data Testing performed by liquid chromatography-tandem mass spectrometry. ??Therapeutic concentrations vary depending on type of transplanted organ and time elapsed since transplant. ??Typical trough concentrations range from 5-15 ng/mL. ??This test was developed and its performance characteristics determined by the [facility] consistent with CLIA requirements. ??This test has not been cleared or approved by the [place] Food and Drug administration. ??Current interpretive data last reviewed 2020. Blood 02/21/2024 5:19 AM CDT 02/21/2024 5:28 AM CDT Keri Reed MD LAB BLOOD ORDERABLES Final Result Performing Organization Address [facility] Co de Phone Number [facility] [place] [address] * (ABNORMAL) CBC with auto differential (02/21/2024 5:19 AM CDT) [facility] WBC 10.8(H) 3.8 - 9.9 K/cumm Hgb 11.9(L) 13.0 - 17.5 g/dL [facility] Hct 30.9(L) 38.9 - 50.3 % [facility] Plt 80(L) 150 - 400 K/cumm [facility] MPV 12.5(H) 9.1 - 12.3 fL [facility] RBC 3.21(L) 4.30 - 5.80 M/cumm [facility] MCV 96.3 81.3 - 96.4 fL [facility] MCH 37.1(H) 27.1 - 33.3 pg [facility] MCHC 38.5(H) 32.3 - 35.7 g/dL [facility] RDW CV 17.1(H) 11.1 - 14.9 % [facility] RDW SD 59.3(H) 35.7 - 48.1 fL [facility] NRBC abs 0.00 0.00 - 0.01 K/cumm [facility] Blood 02/21/2024 5:19 AM CDT 02/21/2024 5:28 AM CDT La Granger COORDINATOR OF PLACEMENT LAB BLOOD ORDERABLES Edited Result - Final [place] [address] * Phosphorus (02/21/2024 5:19 AM CDT) Phosphorus, pl 2.5 2.3 - 4.5 mg/dL Blood 02/21/2024 5:19 AM CDT 02/21/2024 5:28 AM CDT La Granger COORDINATOR OF PLACEMENT LAB BLOOD ORDERABLES Final Result Performing Organization Address City/[facility]/ZIP Co de Phone Number [facility] [place] [address] * Magnesium (02/21/2024 5:19 AM CDT) Magnesium 1.8 1.4 - 2.5 mg/dL Blood 02/21/2024 5:19 AM CDT 02/21/2024 5:28 AM CDT La Granger COORDINATOR OF PLACEMENT LAB BLOOD ORDERABLES Final Result [facility] [place] [address] * (ABNORMAL) Comprehensive metabolic panel (02/21/2024 5:19 AM CDT) Sodium 139 135 - 145 mmol/L Potassium, pl 4.4 3.3 - 4.9 mmol/L [facility] Chloride 108 97 - 110 mmol/L [facility] CO2 23 22 - 32 mmol/L [facility] Anion gap 8 2 - 15 mmol/L [facility] BUN 23 6 - 25 mg/dL [facility] Creatinine 0.85 0.80 - 1.30 mg/dL [facility] Glucose 87 70 - 199 mg/dL [facility] Comment: Interpretive Data Fasting glucose >/= [...] interpretive data was last revised 2022. Calcium 7.7(L) 8.5 - 10.3 mg/dL [facility] Bilirubin, total 2.7(H) 0.1 - 1.2 mg/dL [facility] Protein, pl 4.6(L) 6.5 - 8.5 g/dL [facility] Albumin 2.4(L) 3.5 - 5.0 g/dL [facility] Alk phos 177(H) 40 - 130 Units/L [facility] ALT 25 7 - 55 Units/L [facility] AST 59(H) 10 - 50 Units/L [facility] Blood 02/21/2024 5:19 AM CDT 02/21/2024 5:28 AM CDT us La Granger NP LAB BLOOD ORDERABLES Final Result [facility] [place] [address] * Blood culture Blood Arm, right (02/21/2024 5:07 AM CDT) Report Final Report: No growth Blood (Arm, right) 02/21/2024 5:07 AM CDT 02/21/2024 6:03 AM CDT Narrative [facility] - 02/25/2024 7:00 AM CDT Collection->Peripheral 1. ?Blood cultures are incubated for 4 days on a continuously monitored blood culture system. The first report of a negative culture is issued within 24 hours of receipt of the specimen in the laboratory. 2. ?Positive culture results are reported as soon as they are detected. 3. ?The most important factor for detection of microbes in the setting of bloodstream infection is the volume of blood submitted for culture. Failure to collect an optimal blood volume can result in false negative blood cultures. For pediatric patients, the recommended blood volume to collect is 1 mL of blood per year of patient age (up to 20 mL) per blood culture set. For adult patients, 20 mL of blood, divided equally between aerobic and anaerobic blood culture bottles, is recommended for each blood culture set. 4. ?For blood cultures with Gram-positive cocci, a rapid molecular test for organism identification may be performed using the [employer] Gram-Positive Blood Culture Assay. This assay detects microbial DNA in positive blood culture broth via hybridization of target DNA to capture oligonucleotides on a microarray. This assay has been cleared by the [place] Food and Drug Administration and its performance characteristics have been verified by the [facility] Microbiology Laboratory. 5. ?For questions about this culture, contact the Microbiology Laboratory at [phone]. Interpretive data was last revised on 2020. Keri Reed MD LAB MICROBIOLOGY - [facility] ORDERABLES Final Result [facility] [place] [address] * US Vein Duplex Lower Extremity Bilateral Complete (02/20/2024 5:52 PM CDT) Anatomical Region Laterality Modality Vascular Bilateral Ultrasound 02/20/2024 2:25 PM CDT Narrative 02/21/2024 8:28 PM CDT [facility] - Department of Vascular Surgery, Vascular Laboratory [address] [place] [id number] Lower Extremity Venous Ultrasound Report Patient Name: BEKA LARES J : 1995 (29y ) Study Date: 02/20/2024 2:25:13 PM Gender: M Tech: Lily BLACKWELL Location: [id number] Ref Provider: LA GRANGER ?Quality: Adequate Order Provider: LA GRANGER PROCEDURES: Vascular Report: Venous Duplex imaging was performed bilaterally in the lower extremities. The common femoral, femoral, popliteal, posterior tibial, peroneal veins were evaluated for patency, spontaneity and phasicity with Doppler, compression and augmentation maneuvers. Great saphenous vein proximal at the junction was evaluated with compression maneuvers. INDICATIONS: Hypoxemia. FINDINGS: Performing Chucking Machine Set Up Operator: Carol Blackwell RVT. Bilateral: Venous Doppler signals in the [...] Cancer. PREVIOUS STUDIES: Previous study performed on E on 10/12/2023 (Neg. DVT). DISCLAIMER: The study [...] above. Electronically Signed By: Severino Pickett MD [facility] 2024-02-21 20:27:47 CDT Procedure Note Severino Picektt MD - 02/21/2024 [facility] - Department of Vascular Surgery,Vascular Laboratory [address] [place] [id number] Lower Extremity Venous Ultrasound Report Patient Name: BEKA LARES J : 1995 (29y ) Study Date: 02/20/2024 2:25:13 PM Gender: M Tech: Lily BLACKWELL Location: [id number] Ref Provider: LA GRANGER Quality: Adequate Order Provider: LA GRANGER PROCEDURES: Vascular Report: Venous Duplex imaging was performed bilaterally in the lower extremities.The common femoral, femoral, popliteal, posterior tibial, peroneal veins wereevaluated for patency, spontaneity and phasicity with Doppler, compression and augmentationmaneuvers. Great saphenous vein proximal at the junction was evaluated with compressionmaneuvers. INDICATIONS: Hypoxemia. FINDINGS: Performing Chucking Machine Set Up Operator: Carol Blackwell RVT. Bilateral: Venous Doppler signals in the [...] Cancer. PREVIOUS STUDIES: Previous study performed on [facility] on 10/12/2023 (Neg. DVT). DISCLAIMER: The study [...] above. Electronically Signed By: Severino Pickett MD [facility] 2024-02-21 20:27:47 CDT us La Granger COORDINATOR OF PLACEMENT IMG US PROCEDURES Fi nal Result * Blood culture Blood (02/20/2024 6:28 AM CDT) Report Final Report: No growth Blood 02/20/2024 6:28 AM CDT 02/20/2024 6:48 AM CDT Marci GUERRERO - 02/24/2024 7:00 AM CDT From a different site than #1. Collection->Peripheral 1. ?Blood cultures are incubated for 4 days on a continuously monitored blood culture system. The first report of a negative culture is issued within 24 hours of receipt of the specimen in the laboratory. 2. ?Positive culture results are reported as soon as they are detected. 3. ?The most important factor for detection of microbes in the setting of bloodstream infection is the volume of blood submitted for culture. Failure to collect an optimal blood volume can result in false negative blood cultures. For pediatric patients, the recommended blood volume to collect is 1 mL of blood per year of patient age (up to 20 mL) per blood culture set. For adult patients, 20 mL of blood, divided equally between aerobic and anaerobic blood culture bottles, is recommended for each blood culture set. 4. ?For blood cultures with Gram-positive cocci, a rapid molecular test for organism identification may be performed using the Valued Relationshipsigene Gram-Positive Blood Culture Assay. This assay detects microbial DNA in positive blood culture broth via hybridization of target DNA to capture oligonucleotides on a microarray. This assay has been cleared by the [place] Food and Drug Administration and its performance characteristics have been verified by the [facility] Microbiology Laboratory. 5. ?For questions about this culture, contact the Microbiology Laboratory at [phone]. Interpretive data was last revised on 2020. us Nancy Purcell NP LAB MICROBIOLOGY - GENERAL ORDERABLES Final Result [facility] [place] [address] * Blood culture Blood (02/20/2024 6:28 AM CDT) Report Final Report: No growth Blood 02/20/2024 6:28 AM CDT 02/20/2024 6:48 AM CDT Narrative [facility] - 02/24/2024 7:00 AM CDT Collection->Peripheral 1. ?Blood cultures are incubated for 4 days on a continuously monitored blood culture system. The first report of a negative culture is issued within 24 hours of receipt of the specimen in the laboratory. 2. ?Positive culture results are reported as soon as they are detected. 3. ?The most important factor for detection of microbes in the setting of bloodstream infection is the volume of blood submitted for culture. Failure to collect an optimal blood volume can result in false negative blood cultures. For pediatric patients, the recommended blood volume to collect is 1 mL of blood per year of patient age (up to 20 mL) per blood culture set. For adult patients, 20 mL of blood, divided equally between aerobic and anaerobic blood culture bottles, is recommended for each blood culture set. 4. ?For blood cultures with Gram-positive cocci, a rapid molecular test for organism identification may be performed using the Valued Relationships[employer]ene Gram-Positive Blood Culture Assay. This assay detects microbial DNA in positive blood culture broth via hybridization of target DNA to capture oligonucleotides on a microarray. This assay has been cleared by the [place] Food and Drug Administration and its performance characteristics have been verified by the [facility] Microbiology Laboratory. 5. ?For questions about this culture, contact the Microbiology Laboratory at [phone]. Interpretive data was last revised on 2020. Nancy Purcell NP LAB MICROBIOLOGY - GENERAL ORDERABLES Final Result [facility] [place] [address] * eGFR (02/20/2024 1:46 AM CDT) [facility] eGFR >90 >=60 mL/min/1. 73 m2 Comment: [...] interpretive data was last reviewed 2021. Blood 02/20/2024 1:46 AM CDT 02/20/2024 2:01 AM CDT La Granger COORDINATOR OF PLACEMENT LAB BLOOD ORDERABLES Final Result [facility] Department [place] [address] * (ABNORMAL) Differential, auto (02/20/2024 1:46 AM CDT) Neutrophil abs 9.7(H) 1.5 - 6.5 K/cumm Imm gran abs 0.9(H) 0.0 - 0.1 K/cumm [facility] Lymphocyte abs 0.8 0.8 - 3.3 K/cumm [facility] Monocyte abs 2.3(H) 0.2 - 0.8 K/cumm [facility] Eosinophil abs 0.0 0.0 - 0.5 K/cumm [facility] Basophil abs 0.1 0.0 - 0.1 K/cumm [facility] Neutrophil pct 70.5 % [facility] Comment: Interpretive Data Percent cell count reference ranges are not reported, since discordance with absolute values may lead to misinterpretation of CBC data. Current Interpretive Data was last revised on 2018. Imm gran pct 6.6 % [facility] Comment: Interpretive Data Percent cell count reference ranges are not reported, since discordance with absolute values may lead to misinterpretation of CBC data. Current Interpretive Data was last revised on 2018. Lymphocyte pct 6.0 % [facility] Comment: Interpretive Data Percent cell count reference ranges are not reported, since discordance with absolute values may lead to misinterpretation of CBC data. Current Interpretive Data was last revised on 2018. Monocyte pct 16.4 % [facility] Comment: Interpretive Data Percent cell count reference ranges are not reported, since discordance with absolute values may lead to misinterpretation of CBC data. Current Interpretive Data was last revised on 2018. Eosinophil pct 0.1 % [facility] Comment: Interpretive Data Percent cell count reference ranges are not reported, since discordance with absolute values may lead to misinterpretation of CBC data. Current Interpretive Data was last revised on 2018. Basophil pct 0.4 % [facility] Comment: Interpretive Data Percent cell count reference ranges are not reported, since discordance with absolute values may lead to misinterpretation of CBC data. Current Interpretive Data was last revised on 2018. Blood 02/20/2024 1:46 AM CDT 02/20/2024 2:01 AM CDT La Granger COORDINATOR OF PLACEMENT LAB BLOOD ORDERABLES Final Result [facility] Department of Laboratories [place], [place] [id number] * (ABNORMAL) CBC with auto differential (02/20/2024 1:46 AM CDT) WBC 13.7(H) 3.8 - 9.9 K/cumm Hgb 11.2(L) 13.0 - 17.5 g/dL [facility] Comment:Result may be inaccu rate due to increased plasma turbidity. Consider redraw. Hct 29.8(L) 38.9 - 50.3 % [facility] Plt 75(L) 150 - 400 K/cumm [facility] MPV 12.8(H) 9.1 - 12.3 fL [facility] RBC 2.99(L) 4.30 - 5.80 M/cumm [facility] MCV 99.7(H) 81.3 - 96.4 fL [facility] MCH 37.5(H) 27.1 - 33.3 pg [facility] Comment:Result may be inaccu rate due to increased plasma turbidity. Consider redraw. MCHC 37.6(H) 32.3 - 35.7 g/dL [facility] Comment:Result may be inaccu rate due to increased plasma turbidity. Consider redraw. RDW CV 16.6(H) 11.1 - 14.9 % [facility] RDW SD 59.0(H) 35.7 - 48.1 fL [facility] NRBC abs 0.00 0.00 - 0.01 K/cumm [facility] Blood 02/20/2024 1:46 AM CDT 02/20/2024 2:01 AM CDT La Granger COORDINATOR OF PLACEMENT LAB BLOOD ORDERABLES Edited Result - Final [facility] [place] [address] * Phosphorus (02/20/2024 1:46 AM CDT) Phosphorus, pl 2.8 2.3 - 4.5 mg/dL Blood 02/20/2024 1:46 AM CDT 02/20/2024 2:01 AM CDT La Granger LAB BLOOD ORDERABLES Final Result [facility] [place] [address] * Magnesium (02/20/2024 1:46 AM CDT) Magnesium 2.5 1.4 - 2.5 mg/dL Blood 02/20/2024 1:46 AM CDT 02/20/2024 2:01 AM CDT La Granger NP LAB BLOOD ORDERABLES Final Result [facility] [place] [address] * (ABNORMAL) Comprehensive metabolic panel (02/20/2024 1:46 AM CDT) Pathologist [facility] Sodium 139 135 - 145 mmol/L Potassium, pl 4.5 3.3 - 4.9 mmol/L [facility] Chloride 109 97 - 110 mmol/L [facility] CO2 24 22 - 32 mmol/L [facility] Anion gap 6 2 - 15 mmol/L [facility] BUN 33(H) 6 - 25 mg/dL [facility] Creatinine 1.07 0.80 - 1.30 mg/dL [facility] Glucose 122 70 - 199 mg/dL [facility] Comment: Interpretive Data Fasting glucose >/= [...] interpretive data was last revised 2022. Calcium 7.7(L) 8.5 - 10.3 mg/dL [facility] Bilirubin, total 2.8(H) 0.1 - 1.2 mg/dL [facility] Protein, pl 4.5(L) 6.5 - 8.5 g/dL [facility] Albumin 2.3(L) 3.5 - 5.0 g/dL [facility] Alk phos 161(H) 40 - 130 Units/L [facility] ALT 29 7 - 55 Units/L [facility] AST 57(H) 10 - 50 Units/L [facility] Blood 02/20/2024 1:46 AM CDT 02/20/2024 2:01 AM CDT La Granger COORDINATOR OF PLACEMENT LAB BLOOD ORDERABLES Final Result [facility] [place] [address] * (ABNORMAL) Pneumonia PCR Sputum (02/19/2024 7:59 AM CDT) C. pneumoniae DNA Not Detected Not Detected Legionella pneumophila DNA Not Detected Not Detected [facility] M. pneumoniae DNA Not Detected Not Detected [facility] Adenovirus DNA Not Detected Not Detected [facility] Coronavirus (229E, OC43, HKU1, NL63) RNA Not Detected Not Detected [facility] Metapneumovirus RNA Not Detected Not Detected [facility] Rhinovirus/Enterov irus RNA Detected(A) Not Detected [facility] Influenza A RNA Not Detected Not Detected [facility] Influenza B RNA Not Detected Not Detected [facility] Parainfluenza virus (1-4) RNA Not Detected Not Detected [facility] RSV RNA Not Detected Not Detected [facility] Sputum 02/19/2024 7:59 AM CDT 02/19/2024 9:44 AM CDT Narrative [facility] - 02/19/2024 11:04 AM CDT The [employer]Fire Pneumonia Panel is a multiplexed nucleic acid test capable of simultaneous detection and identification of multiple respiratory viruses and bacteria. ??This panel detects Adenovirus, coronaviruses (Coronavirus HKU1, Coronavirus NL63, Coronavirus 229E, and Coronavirus OC43), Influenza A, Influenza B, Human metapneumovirus, Parainfluenza (1-4), RSV, Rhinovirus/Enterovirus, Chlamydia pneumoniae, Mycoplasma pneumoniae, and Legionella pneumophila. Additional aerobic bacterial targets are reported with the accompanying culture results with the same accession number. Rhinovirus and Enterovirus are genetically similar and cannot be reliably differentiated with this method. Negative adenovirus results should be confirmed by an alternative methodology (i.e. standalone PCR) if the suspicion for adenovirus infection is high. ??The results of this test must be considered in the clinical context of the patient and should not be used as the sole basis for diagnosis, treatment, or other management decisions. ??Negative results in the setting of a respiratory illness may be due to infection with pathogens that are not detected by this test. ??Positive results do not rule out infection/co-infection with other organisms. The [employer] Pneumonia Panel is FDA cleared for lower respiratory tract specimens. The performance characteristics of this assay have been determined by [facility] Clinical [facility]. Current interpretive data was last revised on 2021. La Granger COORDINATOR OF PLACEMENT LAB MICROBIOLOGY - [facility] ORDERABLES Final Result [facility] [place] [address] * (ABNORMAL) Pneumonia PCR with aerobic culture and Gram stain Sputum (02/19/2024 7:59 AM CDT) Direct Specimen Exam Molecular Analysis: 10^6 copies/mL Staphylococcus aureus Methicillin susceptible Staphylococcus aureus (MSSA) detected by molecular analysis. Correlation of molecular analysis with final culture results is recommended. Direct Specimen Exam Stain: No polymorphonuclear leukocytes seen. No squamous epithelial cells seen. Abundant Mixed bacterial bret seen on Gram stain. [facility] Report Final Report: Moderate Staphylococcus aureus Methicillin susceptible (MSSA) by penicillin binding protein 2a (PBP2a) testing. Plus growth of clinically insignificant bacterial bret. (.) [facility] Organism STAPHYLOCOCCUS AUREUS [facility] Organism PLUS GROWTH OF CLINICALLY INSIGNIFICANT BRET. [facility] Sputum 02/19/2024 7:59 AM CDT 02/19/2024 8:13 AM CDT Narrative [facility] - 02/21/2024 12:12 PM CDT When rapid molecular testing results are reported, testing completed using the saambaaArray Pneumonia Panel. ??This molecular assay detects: Acinetobacter calcoaceticus-baumannii complex, Enterobacter cloacae complex, Escherichia coli, Haemophilus influenzae, Enterobacter (Klebsiella) aerogenes, ??Klebsiella oxytoca, Klebsiella pneumoniae group, Moraxella catarrhalis, Proteus spp., Pseudomonas aeruginosa, Serratia marcescens, Staphylococcus aureus, Streptococcus agalactiae, Streptococcus pneumoniae, and Streptococcus pyogenes. ?? These bacteria are detected and reported semi-quantitatively with bins representing approximately 10^4, 10^5, 10^6, or greater than or equal to 10^7 genomic copies of bacterial nucleic acid per mL (copies/mL) of specimen. ??These quantities are reported to aid in estimating the relative abundance of organism(s) detected within the specimen and to correlate these results with culture results. ?? For Staphylococcus aureus, mecA/C and MREJ genes are evaluated to predict methicillin resistance or susceptibility. ??For Gram-negative bacteria, the beta-lactamases CTX-M, IMP, KPC, NDM, VIM and OXA-48-like are evaluated and reported if detected. ??For Gram-negative organisms, the absence of detection of resistance markers does not exclude resistance. ?? Correlation with final culture results and susceptibility testing is recommended. The FilmArray Pneumonia Panel is cleared by the [place] Food and Drug Administration and its performance characteristics have been confirmed by the [facility] Laboratory. ??The performance of the FilmArray Pneumonia Panel has not been established for monitoring treatment of infection and bacterial nucleic acids may persist independent of organism viability. Organism Antibiotic Method Susceptibility Staphylococcus aureus Vancomycin INTERPRETATION Susceptible Staphylococcus aureus Trimethoprim with Sulfamethoxazole INTERPRETATION Susceptible Staphylococcus aureus Linezolid INTERPRETATION Susceptible Staphylococcus aureus Doxycycline INTERPRETATION Susceptible Staphylococcus aureus Clindamycin INTERPRETATION Susceptible Staphylococcus aureus Erythromycin INTERPRETATION Resistant Staphylococcus aureus Oxacillin INTERPRETATION Susceptible Staphylococcus aureus Cefazolin INTERPRETATION Susceptible Staphylococcus aureus Ceftriaxone INTERPRETATION Susceptible us La Granger NP LAB MICROBIOLOGY - [facility] ORDERABLES Final Result [facility] [place] [address] * Oxyhemoglobin, central venous (02/19/2024 7:55 AM CDT) Oxyhemoglobin, CV 77.9 % Comment: Interpretive Data No reference range established. Current interpretive data was last revised 2020. Blood 02/19/2024 7:55 AM CDT 02/19/2024 8:01 AM CDT La Granger LAB BLOOD ORDERABLES Final Result Performing Organization Address [facility] de Phone Number [facility] Department [place] [address] * (ABNORMAL) Lactate (02/19/2024 7:55 AM CDT) Pathologist [facility] Lactate 2.1(H) 0.7 - 2.0 mmol/L Blood 02/19/2024 7:55 AM CDT 02/19/2024 8:01 AM CDT La Granger LAB BLOOD ORDERABLES Final Result Performing Organization Address [facility] de Phone Number [facility] [place] [address] * Tacrolimus level trough (02/19/2024 7:55 AM CDT) Pathologist [facility] Tacrolimus trough 3.6 ng/mL Comment: Interpretive Data Testing performed by liquid chromatography-tandem mass spectrometry. ??Therapeutic concentrations vary depending on type of transplanted organ and time elapsed since transplant. ??Typical trough concentrations range from 5-15 ng/mL. ??This test was developed and its performance characteristics determined by the [facility] consistent with CLIA requirements. ??This test has not been cleared or approved by the [place] Food and Drug administration. ??Current interpretive data last reviewed 2020. Blood 02/19/2024 7:55 AM CDT 02/19/2024 8:01 AM CDT [facility] BLOOD ORDERABLES Final Result [facility] BUTCHER [facility] [place] [address] * (ABNORMAL) Blood culture Blood Arm, right (02/19/2024 6:52 AM CDT) Direct Specimen Exam Stain: Gram Positive Cocci in clusters Time to culture positivity (anaerobic media): 23.9 hours Report Final Report: Staphylococcus aureus For susceptibility results, refer to accession number [id number] on the blood culture from 02/18/2024 (.) [facility] Organism STAPHYLOCOCCUS AUREUS [facility] Blood (Arm, right) 02/19/2024 6:52 AM CDT 02/19/2024 7:05 AM CDT Narrative [facility] - 02/24/2024 8:59 AM CDT From a different site than #1. Collection->Peripheral 1. ?Blood cultures are incubated for 4 days on a continuously monitored blood culture system. The first report of a negative culture is issued within 24 hours of receipt of the specimen in the laboratory. 2. ?Positive culture results are reported as soon as they are detected. 3. ?The most important factor for detection of microbes in the setting of bloodstream infection is the volume of blood submitted for culture. Failure to collect an optimal blood volume can result in false negative blood cultures. For pediatric patients, the recommended blood volume to collect is 1 mL of blood per year of patient age (up to 20 mL) per blood culture set. For adult patients, 20 mL of blood, divided equally between aerobic and anaerobic blood culture bottles, is recommended for each blood culture set. 4. ?For blood cultures with Gram-positive cocci, a rapid molecular test for organism identification may be performed using the [employer] Gram-Positive Blood Culture Assay. This assay detects microbial DNA in positive blood culture broth via hybridization of target DNA to capture oligonucleotides on a microarray. This assay has been cleared by the [place] Food and Drug Administration and its performance characteristics have been verified by the [facility] Microbiology Laboratory. 5. ?For questions about this culture, contact the Microbiology Laboratory at [phone]. Interpretive data was last revised on 2020. Nancy Purcell NP LAB MICROBIOLOGY - GENERAL ORDERABLES Final Result [facility] [place] [address] * (ABNORMAL) Blood culture Blood Arm, left (02/19/2024 6:52 AM CDT) Direct Specimen Exam Stain: Gram Positive Cocci in clusters Time to culture positivity (anaerobic media): 20.1 hours Time to culture positivity (aerobic media): 25.5 hours Report Final Report: Staphylococcus aureus For susceptibility results, refer to accession number [id number] on the blood culture from 02/18/2024 (.) [facility] Organism STAPHYLOCOCCUS AUREUS [facility] Blood (Arm, left) 02/19/2024 6:52 AM CDT 02/19/2024 7:05 AM CDT Narrative [facility] - 02/23/2024 11:35 AM CDT Collection->Peripheral 1. ?Blood cultures are incubated for 4 days on a continuously monitored blood culture system. The first report of a negative culture is issued within 24 hours of receipt of the specimen in the laboratory. 2. ?Positive culture results are reported as soon as they are detected. 3. ?The most important factor for detection of microbes in the setting of bloodstream infection is the volume of blood submitted for culture. Failure to collect an optimal blood volume can result in false negative blood cultures. For pediatric patients, the recommended blood volume to collect is 1 mL of blood per year of patient age (up to 20 mL) per blood culture set. For adult patients, 20 mL of blood, divided equally between aerobic and anaerobic blood culture bottles, is recommended for each blood culture set. 4. ?For blood cultures with Gram-positive cocci, a rapid molecular test for organism identification may be performed using the [employer] Gram-Positive Blood Culture Assay. This assay detects microbial DNA in positive blood culture broth via hybridization of target DNA to capture oligonucleotides on a microarray. This assay has been cleared by the [place] Food and Drug Administration and its performance characteristics have been verified by the [facility]. 5. ?For questions about this culture, contact the Microbiology Laboratory at [phone]. Interpretive data was last revised on 2020. Nancy Purcell NP LAB MICROBIOLOGY - GENERAL ORDERABLES Final Result [facility] [place] [address] * X-ray chest 1 view (Portable) (02/19/2024 6:00 AM CDT) Anatomical Region Laterality Modality Body, Chest N/A Computed Radiogr aphy 02/19/2024 7:23 AM CDT Impressions 02/19/2024 7:23 AM CDT The current study is compared with the prior radiograph dated ??02/18/2024. ??Right internal jugular central catheter has tip overlying right atrium. ??The heart is mild to moderately enlarged. There is a slight interval increase in a small left effusion since the prior study. ??Tiny right effusion noted. ??There is no pneumothorax.. ??There is no mass or lymphadenopathy. ??Extensive consolidation in the left lower lobe is again seen which is cavitary with compared with prior CT from 02/18/2024. ??Numerous surgical clips overlie the right upper quadrant of the abdomen. Electronically signed by: Darcy Jimenez M.D. Narrative 02/19/2024 7:23 AM CDT EXAMINATION: 1 view chest radiograph Procedure Note Darcy Jimenez MD - 02/19/2024 EXAMINATION: 1 view chest radiograph IMPRESSION: The current study is compared with the prior radiograph dated 02/18/2024. Right internal jugular central catheter has tip overlying right atrium. The heart is mild to moderately enlarged. There is a slight interval increase in a small left effusion since the prior study. Tiny right effusion noted. There is no pneumothorax.. There is no mass or lymphadenopathy. Extensive consolidation in the left lower lobe is again seen which is cavitary with compared with prior CT from 02/18/2024. Numerous surgical clips overlie the right upper quadrant of the abdomen. Electronically signed by: Darcy Jimenez M.D. us [place] NP IMG XR PROCEDURES Fi nal Result * eGFR (02/19/2024 2:18 AM CDT) eGFR 85 >=60 mL/min/1. 73 m2 Comment: Interpretive Data [...] interpretive data was last reviewed 2021. Blood 02/19/2024 2:18 AM CDT 02/19/2024 2:33 AM CDT us La Granger NP LAB BLOOD ORDERABLES Final Result [facility] Department of Laboratories [place], [place] [id number] * (ABNORMAL) Differential, auto (02/19/2024 2:18 AM CDT) Neutrophil abs 17.4(H) 1.5 - 6.5 K/cumm Imm gran abs 3.3(H) 0.0 - 0.1 K/cumm [facility] Lymphocyte abs 1.0 0.8 - 3.3 K/cumm [facility] Monocyte abs 5.5(H) 0.2 - 0.8 K/cumm [facility] Eosinophil abs 0.0 0.0 - 0.5 K/cumm [facility] Basophil abs 0.2(H) 0.0 - 0.1 K/cumm [facility] Neutrophil pct 63.7 % [facility] Comment: Interpretive Data Percent cell count reference ranges are not reported, since discordance with absolute values may lead to misinterpretation of CBC data. Current Interpretive Data was last revised on 2018. Imm gran pct 12.1 % [facility] Comment: Interpretive Data Percent cell count reference ranges are not reported, since discordance with absolute values may lead to misinterpretation of CBC data. Current Interpretive Data was last revised on 2018. Lymphocyte pct 3.6 % [facility] Comment: Interpretive Data Percent cell count reference ranges are not reported, since discordance with absolute values may lead to misinterpretation of CBC data. Current Interpretive Data was last revised on 2018. Monocyte pct 20.1 % [facility] Comment: Interpretive Data Percent cell count reference ranges are not reported, since discordance with absolute values may lead to misinterpretation of CBC data. Current Interpretive Data was last revised on 2018. Eosinophil pct 0.0 % [facility] Comment: Interpretive Data Percent cell count reference ranges are not reported, since discordance with absolute values may lead to misinterpretation of CBC data. Current Interpretive Data was last revised on 2018. Basophil pct 0.5 % [facility] Comment: Interpretive Data Percent cell count reference ranges are not reported, since discordance with absolute values may lead to misinterpretation of CBC data. Current Interpretive Data was last revised on 2018. Blood 02/19/2024 2:18 AM CDT 02/19/2024 2:33 AM CDT La Granger COORDINATOR OF PLACEMENT LAB BLOOD ORDERABLES Final Result Performing Organization Address [facility] de Phone Number [facility] [place] [address] * Coccidioides antibody screen w/reflex Blood (02/19/2024 2:18 AM CDT) [facility] Coccidioides ab screen, ser Negative Negative [facility] Comment: Repeat testing on a new sample in 2-3 weeks if clinically indicated. ADDITIONAL INFORMATION This test has been modified from the manager spring's instructions. Its performance characteristics were determined by [facility] in a manner consistent with CLIA requirements. This test has not been cleared or approved by the U.S. Food and Drug Administration. Test Performed by: [facility] [place] [address] [employer]: Jason Sandy M.D. Ph.D.; CLIA# [id number] Blood 02/19/2024 2:18 AM CDT 02/19/2024 3:06 AM CDT Nancy Purcell COORDINATOR OF PLACEMENT LAB MICROBIOLOGY - GENERAL ORDERABLES Final Result Performing Organization Address [facility] de Phone Number [facility] Department [place] [address] [facility] * (ABNORMAL) CBC with auto differential (02/19/2024 2:18 AM CDT) [facility] WBC 27.4(H) 3.8 - 9.9 K/cumm Hgb 11.5(L) 13.0 - 17.5 g/dL [facility] Comment:Result may be inaccu rate due to increased plasma turbidity. Consider redraw. Hct 30.2(L) 38.9 - 50.3 % [facility] Plt 76(L) 150 - 400 K/cumm [facility] MPV 12.5(H) 9.1 - 12.3 fL [facility] RBC 3.11(L) 4.30 - 5.80 M/cumm [facility] MCV 97.1(H) 81.3 - 96.4 fL [facility] MCH 37.0(H) 27.1 - 33.3 pg [facility] Comment:Result may be inaccu rate due to increased plasma turbidity. Consider redraw. MCHC 38.1(H) 32.3 - 35.7 g/dL [facility] Comment:Result may be inaccu rate due to increased plasma turbidity. Consider redraw. RDW CV 15.8(H) 11.1 - 14.9 % [facility] RDW SD 55.0(H) 35.7 - 48.1 fL [facility] NRBC abs 0.00 0.00 - 0.01 K/cumm [facility] Blood 02/19/2024 2:18 AM CDT 02/19/2024 2:33 AM CDT La Granger NP LAB BLOOD ORDERABLES Final Result [facility] [place] [address] * Phosphorus (02/19/2024 2:18 AM CDT) Pathologist [facility] Phosphorus, pl 4.1 2.3 - 4.5 mg/dL Blood 02/19/2024 2:18 AM CDT 02/19/2024 2:33 AM CDT [place] Gr[place] COORDINATOR OF PLACEMENT LAB BLOOD ORDERABLES Final Result [facility] [place] [address] * Magnesium (02/19/2024 2:18 AM CDT) Pathologist [facility] Magnesium 2.2 1.4 - 2.5 mg/dL Blood 02/19/2024 2:18 AM CDT 02/19/2024 2:33 AM CDT La Johnson Hailey COORDINATOR OF PLACEMENT LAB BLOOD ORDERABLES Final Result [facility] [place] [address] * (ABNORMAL) Comprehensive metabolic panel (02/19/2024 2:18 AM CDT) Pathologist [facility] Sodium 136 135 - 145 mmol/L Potassium, pl 4.4 3.3 - 4.9 mmol/L [facility] Chloride 106 97 - 110 mmol/L [facility] CO2 23 22 - 32 mmol/L [facility] Anion gap 7 2 - 15 mmol/L [facility] BUN 33(H) 6 - 25 mg/dL [facility] Creatinine 1.18 0.80 - 1.30 mg/dL [facility] Glucose 117 70 - 199 mg/dL [facility] Comment: Interpretive Data Fasting glucose >/= [...] interpretive data was last revised 2022. Calcium 7.8(L) 8.5 - 10.3 mg/dL [facility] Bilirubin, total 4.1(H) 0.1 - 1.2 mg/dL [facility] Protein, pl 4.6(L) 6.5 - 8.5 g/dL [facility] Albumin 2.4(L) 3.5 - 5.0 g/dL [facility] Alk phos 158(H) 40 - 130 Units/L [facility] ALT 25 7 - 55 Units/L [facility] AST 60(H) 10 - 50 Units/L [facility] Blood 02/19/2024 2:18 AM CDT 02/19/2024 2:33 AM CDT La Granger NP LAB BLOOD ORDERABLES Final Result [facility] [place] [address] * DC ARTL CATHJ/CANNULJ MNTR/TRANSFUSION SPX PRQ (02/18/2024 5:56 PM CDT) Narrative Ancelmo Kennedy MD - 02/18/2024 5:56 PM CDT David Saab MD ? 02/18/2024 ??5:59 PM Arterial Line Insertion Date/Time: 02/18/2024 5:56 PM Performed by: David Saab MD Authorized by: David Saab MD ?? [place] Protocol: RN Notified of Procedure: yes ?? Informed consent: ??Risks, benefits, alternatives discussed and patient/labor relations representative/guardian agrees and accepts Patient's stated name/ matches armband: ??Yes Allergies confirmed: yes ?? Consent form signed, dated, timed; matches correct patient, intended procedure and site: ??Yes Imaging: ??Pertinent imaging reviewed, correctly oriented and match to patient identifiers Lab/Diag test results: ??Pertinent lab/diag tests reviewed and match to patient identifiers Supplies, devices and special equipment are available: yes ?? Site/side marked: yes Indications: hemodynamic monitoring ?? Location: ??Left radial Anesthesia: ??Local infiltration Local anesthetic: ??Lidocaine 1% Patient skin preparation: chlorhexidine ?? Ultrasound guidance: ??Real-time needle guidance and pre-procedure diagnostic Patient preparation: ??Cap, gloves, gown, handwashing, towels, mask and sterile probe cover Catheter gauge: ??18 Single percutaneous needle puncture: Yes ?? Seldinger technique used: Yes ?? Number of attempts: ??1 Post-procedure: ??Line sutured and dressing applied Post-procedure CMS: ??Unchanged Complications: no complications noted during insertion ?? Post Procedure Debrief: All guidewires, needles, sponges or other items are accounted for: yes ?? Any special post procedure monitoring, testing or other considerations: n/a ?? All specimens identified, labeled and matched to patient identification: n/a ?? Responsible libertarian for transporting specimen(s) to lab determined: n/a ?? David Saab MD IV THERAPY ORDERABLES Final R esult * DC INSJ NON-TUNNELED CENTRAL VENOUS CATH AGE 5 YR/> (02/18/2024 5:54 PM CDT) Narrative Ancelmo Kennedy MD - 02/18/2024 5:54 PM CDT David Saab MD ? 02/18/2024 ??5:56 PM Central Line Insertion Date/Time: 02/18/2024 5:54 PM Performed by: David Saab MD Authorized by: David Saab MD ?? [place] Protocol: RN Notified of Procedure: yes ?? Informed consent: ??Risks, benefits, alternatives discussed and patient/labor relations representative/guardian agrees and accepts Patient's stated name/ matches armband: ??Yes Allergies confirmed: yes ?? Consent form signed, dated, timed; matches correct patient, intended procedure and site: ??Yes Imaging: ??Pertinent imaging reviewed, correctly oriented and match to patient identifiers Lab/Diag test results: ??Pertinent lab/diag tests reviewed and match to patient identifiers Supplies, devices and special equipment are available: yes ?? Site/side marked: n/a ??Immediately prior to the procedure a time out was called: a verbal verification by the procedure participants confirmed correct patient identity, correct site/side marked and visible (if applicable); agreement on procedure to be done; and correct patient positioning ?? Have non- routine considerations been assessed?: Yes ?? Indications: ??Vascular access and administer vasoactive medications Anesthesia (see MAR for exact dosage) Anesthesia method: ??Local infiltration Local anesthetic: ??Lidocaine 1% Patient position: ??Trendelenburg Skin preparation: ??Skin prepped with 2% chlorhexidine Provider preparation: ??Cap, full body drape, gloves and gown Location: ??Right internal jugular Ultrasound guidance: ??Real-time needle guidance and pre-procedure diagnostic Assessment: ??Blood return through all ports, free fluid flow and placement verified by x-ray Catheter type: ??Triple lumen Catheter size: ??7 Fr Needle inserted, vein idenitified then guidewire inserted easily into vein: Yes ?? Number of attempts: ??1 Successful placement: Yes ?? Line securement: ??Line sutured and dressing applied Post Procedure Debrief: All guidewires, needles, sponges or other items are accounted for: yes ?? Any special post procedure monitoring, testing or other considerations: n/a ?? All specimens identified, labeled and matched to patient identification: n/a ?? Responsible libertarian for transporting specimen(s) to lab determined: n/a ?? David Saab MD IN CLINIC/BEDSIDE ORDERABLES Final Result * (ABNORMAL) Potassium, whole blood (02/18/2024 5:33 PM CDT) Pathologist [facility] Potassium, bld 5.1(H) 3.3 - 4.9 mmol/L Blood 02/18/2024 5:33 PM CDT 02/18/2024 5:38 PM CDT La Granger NP LAB BLOOD ORDERABLES Final Result [facility] One [facility] [place] [address] * Legionella antigen Urine (02/18/2024 5:00 PM CDT) Legionella Ag Negative Negative Comment: Interpretive Data This test detects only Legionella pneumophila serogroup 1 antigen. Testing performed by [facility] ([phone]). Current interpretive data was last revised on 2020. Urine 02/18/2024 5:00 PM CDT 02/18/2024 7:03 PM CDT La Granger NP LAB MICROBIOLOGY - G ENERAL ORDERABLES Final Result Performing Organization Address [facility]/ZIP Co de Phone Number [place] [address] * Histoplasma Antigen Urine (02/18/2024 5:00 PM CDT) Histo Ag Ur result None Detected None Detected Histo Ag Ur interp Negative Negative [facility] Comment: Result Interpretation: Reference interval: None Detected Results reported as ng/mL in 0.20 - 20.00 ng/mL range Results above 20.00 ng/mL are reported as 'Positive, Above the Limit of Quantification' Testing Performed by: [facility], [address] [place] [address] [place] [id number]. This test was developed and its performance characteristics determined by [facility]. It has not been cleared or approved by the FDA; however, FDA clearance or approval is not currently required for clinical use. The results are not intended to be used as the sole means for clinical diagnosis or patient management decisions. Interpretative data updated 12/30/2020 Urine 02/18/2024 5:00 PM CDT 02/18/2024 7:03 PM CDT [facility] LAB MICROBIOLOGY - G ENERAL ORDERABLES Final Result Performing Organization Address [facility] Co de Phone Number [place] [address] * Osmolality, urine (02/18/2024 5:00 PM CDT) Osmo, ur 168 mOsm/kg Urine 02/18/2024 5:00 PM CDT 02/18/2024 5:10 PM CDT [facility] LAB URINE ORDERABLES Final Result Performing Organization Address [facility]/ZIP Co de Phone Number [place] [address] * Urea nitrogen, urine, random (02/18/2024 5:00 PM CDT) Urea nitrogen, ur 223 mg/dL Comment: Interpretive Data No reference range established. Current interpretive data was last revised 2019. Urine 02/18/2024 5:00 PM CDT 02/18/2024 5:10 PM CDT [place] COORDINATOR OF PLACEMENT LAB URINE ORDERABLES Final Result Performing Organization Address [facility] Co de Phone Number [facility] [place] [address] * Sodium, urine, random (02/18/2024 5:00 PM CDT) Sodium, ur <20 mmol/L Comment: Interpretive Data No reference range established. Current interpretive data was last revised 2019. Urine 02/18/2024 5:0 0 PM CDT 02/18/2024 5:10 PM CDT [facility] URINE ORDERABLES Final Result Performing Organization Address [facility] Co de Phone Number [facility] Department [place] [address] * Creatinine, urine, random (02/18/2024 5:00 PM CDT) Creatinine Ur 31.3 mg/dL Comment: Interpretive Data No reference range established. Current interpretive data was last revised 2019. Urine 02/18/2024 5:00 PM CDT 02/18/2024 5:10 PM CDT [place] COORDINATOR OF PLACEMENT LAB URINE ORDERABLES Final Result Performing Organization Address City/[facility] Co de Phone Number [facility] [place] [address] * XR Chest 1 View (02/18/2024 4:25 PM CDT) Anatomical Region Laterality Modality Body, Chest N/A Computed Radiogr aphy 02/18/2024 4:46 PM CDT Impressions 02/18/2024 4:46 PM CDT Comparison is made to chest radiograph dated 02/18/2024 at 6:07 AM. Right internal jugular venous approach catheter tip overlies the superior cavoatrial junction. ??Multiple clips overlie the upper abdomen. No significant interval change in left basilar airspace opacities, in keeping with pneumonia and better characterized by CT chest of 02/18/2024. ??New mild pulmonary edema. ??Small bilateral pleural effusions are better characterized by prior chest CT. ??No pneumothorax. ??Stable enlarged cardiac silhouette. Electronically signed by: Cathleen Flanagan M.D. Narrative 02/18/2024 4:46 PM CDT EXAMINATION: 1 view chest radiograph Procedure Note Cathleen Flanagan MD - 02/18/2024 EXAMINATION: 1 view chest radiograph IMPRESSION: Comparison is made to chest radiograph dated 02/18/2024 at 6:07 AM. Right internal jugular venous approach catheter tip overlies the superior cavoatrial junction. Multiple clips overlie the upper abdomen. No significant interval change in left basilar airspace opacities, in keeping with pneumonia and better characterized by CT chest of 02/18/2024. New mild pulmonary edema. Small bilateral pleural effusions are better characterized by prior chest CT. No pneumothorax. Stable enlarged cardiac silhouette. Electronically signed by: Cathleen Flanagan M.D. [place] COORDINATOR OF PLACEMENT IMG XR PROCEDURES Fi nal Result * POCT glucose (02/18/2024 4:22 PM CDT) Glucose, POC 103 70 - 199 mg/dL Blood 02/18/2024 4:22 PM CDT 02/18/2024 4:22 PM CDT us Anita Gillsepie MD LAB POCT ORDERABLES - KIAH CE Final Result [facility] [place] [address] * (ABNORMAL) POC Blood Gas and Chemistries, Venous - (02/18/2024 4:22 PM CDT) pH, Nathan POC 7.39 7.32 - 7.43 pCO2, nathan POC 32(L) 40 - 50 mmHg [facility] pO2, nathan POC 46 mmHg [facility] Na, POC 129(L) 135 - 145 mmol/L [facility] K POC 5.7(H) 3.3 - 4.9 mmol/L [facility] Comment: Interpretive Data This method is not able to assess for hemolysis, which may falsely increase potassium concentrations. If further testing is needed to evaluate this result, consider in-laboratory plasma potassium. Current Interpretive Data was last revised on 2022. Cl, POC 103 97 - 110 mmol/L [facility] Ionized Ca, POC 4.65 4.50 - 5.10 mg/dL [facility] Glucose, POC 118 70 - 199 mg/dL [facility] Lactate, POC 2.9(H) 0.7 - 2.2 mmol/L [facility] O2 Sat, Nathan POC (Rigoberto) 75 % [facility] Base excess, POC -4.7 mmol/L [facility] HCO3, Nathan POC 19(L) 20 - 30 mmol/L [facility] Hct, POC 38.0(L) 41.4 - 51.6 % [facility] Total Hb, POC 12.7(L) 13.8 - 17.2 g/dL [facility] O2 Sat, Nathan POC (Calc) 81 % [facility] Blood 02/18/2024 4:22 PM CDT 02/18/2024 4:22 PM CDT us Anita Gillespie MD LAB POCT ORDERABLES - KIAH CE Final Result [facility] Department [place] [address] * eGFR (02/18/2024 4:15 PM CDT) Pathologist [facility] eGFR 70 >=60 mL/min/1. 73 m2 Comment: Interpretive Data [...] interpretive data was last reviewed 2021. Blood 02/18/2024 4:15 PM CDT 02/18/2024 4:29 PM CDT Jinny Salmon NP LAB BLOOD ORDERABLES Fin al Result [facility] [place] [address] * IgG (02/18/2024 4:15 PM CDT) [facility] Immunoglobulin G 894 700 - 1,600 mg/dL Blood 02/18/2024 4:15 PM CDT 02/18/2024 4:23 PM CDT us Anita Gillespie MD LAB BLOOD ORDERABLES Final Result [facility] [place] [address] * (ABNORMAL) Differential, auto (02/18/2024 4:15 PM CDT) Neutrophil abs 24.1(H) 1.5 - 6.5 K/cumm Imm gran abs 2.4(H) 0.0 - 0.1 K/cumm [facility] Lymphocyte abs 0.6(L) 0.8 - 3.3 K/cumm [facility] Monocyte abs 5.3(H) 0.2 - 0.8 K/cumm [facility] Eosinophil abs 0.0 0.0 - 0.5 K/cumm [facility] Basophil abs 0.1 0.0 - 0.1 K/cumm [facility] Neutrophil pct 74.1 % [facility] Comment: Interpretive Data Percent cell count reference ranges are not reported, since discordance with absolute values may lead to misinterpretation of CBC data. Current Interpretive Data was last revised on 2018. Imm gran pct 7.3 % [facility] Comment: Interpretive Data Percent cell count reference ranges are not reported, since discordance with absolute values may lead to misinterpretation of CBC data. Current Interpretive Data was last revised on 2018. Lymphocyte pct 1.8 % [facility] Comment: Interpretive Data Percent cell count reference ranges are not reported, since discordance with absolute values may lead to misinterpretation of CBC data. Current Interpretive Data was last revised on 2018. Monocyte pct 16.4 % [facility] Comment: Interpretive Data Percent cell count reference ranges are not reported, since discordance with absolute values may lead to misinterpretation of CBC data. Current Interpretive Data was last revised on 2018. Eosinophil pct 0.0 % [facility] Comment: Interpretive Data Percent cell count reference ranges are not reported, since discordance with absolute values may lead to misinterpretation of CBC data. Current Interpretive Data was last revised on 2018. Basophil pct 0.4 % [facility] Comment: Interpretive Data Percent cell count reference ranges are not reported, since discordance with absolute values may lead to misinterpretation of CBC data. Current Interpretive Data was last revised on 2018. Blood 02/18/2024 4:15 PM CDT 02/18/2024 4:28 PM CDT us Jinny Salmon NP LAB BLOOD ORDERABLES Fin al Result [facility] [place] [address] * (ABNORMAL) CBC with auto differential (02/18/2024 4:15 PM CDT) WBC 32.5(H) 3.8 - 9.9 K/cumm Hgb 12.4(L) 13.0 - 17.5 g/dL [facility] Comment:Result may be inaccu rate due to increased plasma turbidity. Consider redraw. Hct 32.6(L) 38.9 - 50.3 % [facility] Plt 76(L) 150 - 400 K/cumm [facility] MPV 13.2(H) 9.1 - 12.3 fL [facility] RBC 3.32(L) 4.30 - 5.80 M/cumm [facility] MCV 98.2(H) 81.3 - 96.4 fL [facility] MCH 37.3(H) 27.1 - 33.3 pg [facility] Comment:Result may be inaccu rate due to increased plasma turbidity. Consider redraw. MCHC 38.0(H) 32.3 - 35.7 g/dL [facility] Comment:Result may be inaccu rate due to increased plasma turbidity. Consider redraw. RDW CV 15.8(H) 11.1 - 14.9 % [facility] RDW SD 55.8(H) 35.7 - 48.1 fL [facility] NRBC abs 0.00 0.00 - 0.01 K/cumm [facility] Blood 02/18/2024 4:15 PM CDT 02/18/2024 4:28 PM CDT [place] COORDINATOR OF PLACEMENT LAB BLOOD ORDERABLES Final Result Performing Organization Address City/[facility]/ZIP Co de Phone Number [facility] [place] [address] * (ABNORMAL) Phosphorus (02/18/2024 4:15 PM CDT) Pathologist [facility] Phosphorus, pl 4.8(H) 2.3 - 4.5 mg/dL Comment:Reviewed Blood 02/18/2024 4:15 PM CDT 02/18/2024 4:23 PM CDT [place] COORDINATOR OF PLACEMENT LAB BLOOD ORDERABLES Final Result Performing Organization Address City/[facility] Co de Phone Number [facility] [place] [address] * Magnesium (02/18/2024 4:15 PM CDT) Pathologist [facility] Magnesium 1.9 1.4 - 2.5 mg/dL Blood 02/18/2024 4:15 PM CDT 02/18/2024 4:23 PM CDT [place] COORDINATOR OF PLACEMENT LAB BLOOD ORDERABLES Final Result Performing Organization Address City/[facility] [place] [address] * (ABNORMAL) Comprehensive metabolic panel (02/18/2024 4:15 PM CDT) Sodium 129(L) 135 - 145 mmol/L Potassium, pl 5.9(H) 3.3 - 4.9 mmol/L [facility] Chloride 100 97 - 110 mmol/L [facility] CO2 20(L) 22 - 32 mmol/L [facility] Anion gap 9 2 - 15 mmol/L [facility] BUN 30(H) 6 - 25 mg/dL [facility] Creatinine 1.38(H) 0.80 - 1.30 mg/dL [facility] Glucose 114 70 - 199 mg/dL [facility] Comment: Interpretive Data Fasting glucose >/= [...] 2022. Calcium 8.4(L) 8.5 - 10.3 mg/dL [facility] Bilirubin, total 4.8(H) 0.1 - 1.2 mg/dL [facility] Protein, pl 5.2(L) 6.5 - 8.5 g/dL [facility] Albumin 2.6(L) 3.5 - 5.0 g/dL [facility] Alk phos 174(H) 40 - 130 Units/L [facility] ALT 32 7 - 55 Units/L [facility] AST 84(H) 10 - 50 Units/L [facility] Blood 02/18/2024 4:15 PM CDT 02/18/2024 4:23 PM CDT [place] NP LAB BLOOD ORDERABLES Final Result [facility] [place] [address] * HIV 1/2 Antibody plus p24 Antigen Blood (02/18/2024 4:15 PM CDT) Pathologist [facility] HIV 1/2 ab + p24 ag Nonreactive Nonreactive Comment:Nonreactive for HIV- 1 antigen and HIV-1/HIV-2 antibodies. No laboratory evidence of HIV infection. If acute HIV infection is suspected, consider testing for HIV-1 RNA. Current interpretive data was last revised on 22. Blood 02/18/2024 4:15 PM CDT 02/18/2024 4:28 PM CDT Jinny Salmon NP LAB MICROBIOLOGY - GENER AL ORDERABLES Final Result Performing Organization Address City/[facility] Co de Phone Number [facility] [place] [address] * RPR Blood (02/18/2024 4:15 PM CDT) [facility] RPR Nonreactive Nonreactive Blood 02/18/2024 4:15 PM CDT 02/18/2024 4:28 PM CDT Jinny Salmon NP LAB MICROBIOLOGY - GENER AL ORDERABLES Final Result Performing Organization Address [facility] de Phone Number [facility] [place] [address] * Hepatitis panel, acute Blood (02/18/2024 4:15 PM CDT) [facility] Hep A IgM Nonreactive Nonreactive Hep B core IgM Nonreactive Nonreactive [facility] Hep C Ab Nonreactive Nonreactive [facility] Comment:Antibodies to HCV no t detected. Does NOT exclude the possibility of recent exposure to HCV. Current interpretive data was last revised on 22 HepBsAg Nonreactive Nonreactive [facility] Blood 02/18/2024 4:15 PM CDT 02/18/2024 4:28 PM CDT Jinny Salmon NP LAB MICROBIOLOGY - GENER AL ORDERABLES Final Result Performing Organization Address City/[facility] Co de Phone Number [facility] [place] [address] * Herpes Simplex Virus (HSV) PCR Blood (02/18/2024 4:15 PM CDT) [facility] HSV DNA Not Detected Not Detected [facility] Comment: Interpretive Data This assay is performed using primers specific for the DNA polymerase gene of both HSV-1 and HSV-2. ??The assay contains unique primer/probe sets capable of distinguishing between HSV-1 and HSV-2. ??This assay has been cleared by the U.S. Food and Drug Administration for performance on cerebrospinal fluid and genital swabs. ??The assay has been evaluated for use on alternative sample types, though it is not FDA cleared for these applications. ??The performance of all sample types has been validated by the performing laboratory and deemed acceptable for patient testing. Current Interpretive Data was last reviewed on 02/28/2019 Blood 02/18/2024 4:15 PM CDT 02/18/2024 4:40 PM CDT Jinny Salmon NP LAB MICROBIOLOGY - [facility] AL ORDERABLES Final Result Performing Organization Address [facility] Co de Phone Number [facility] Department [place] [address] [facility] * Nadine-De La Cruz Virus (EBV) DNA Quantitative Blood (02/18/2024 4:15 PM CDT) [facility] EBV DNA Result Not Detected [facility] Comment: Interpretive Data The quantifiable range of this assay is 35 IUnits/mL to 100,000,000 IUnits/mL (1.54 log IUnits/mL to 8.0 log IUnits/mL). Testing was performed by the NIA 6800 EBV Test ([employer] Testing performed at [facility]. Current interpretive data was last revised on 2023. Blood 02/18/2024 4:15 PM CDT 02/18/2024 4:27 PM CDT Jinny Salmon NP LAB MICROBIOLOGY - GENER AL ORDERABLES Final Result Performing Organization Address [facility] de Phone Number [facility] [place] [address] [facility] * Aspergillus galactomannan antigen Blood (02/18/2024 4:15 PM CDT) Aspergillus galactomannan Ag <0.500 <0.5 Index [facility] Comment: ADDITIONAL INFORMATION This is a qualitative test and the resulted index value is not indicative of disease severity. ??Serial testing is recommended for patients at high risk for invasive aspergillosis. This assay was performed using the FDA-cleared [employer] Aspergillus Galactomannan EIA. Test Performed by: [place] [address] [employer]: Jason Sandy M.D. Ph.D.; CLIA# [id number] Blood 02/18/2024 4:15 PM CDT 02/18/2024 4:26 PM CDT Jinny Salmon NP LAB MICROBIOLOGY - GENER AL ORDERABLES Final Result Performing Organization Address [facility] de Phone Number [facility] Department [place] [address] [facility] * Cryptococcal Antigen, Serum Blood (02/18/2024 4:15 PM CDT) Cryptococcus ag, Serum Negative Negative Comment: The cryptococcal antigen test was performed using the IMMY CrAg Lateral Flow Assay. This assay is FDA cleared for serum and CSF specimens and for the detection of Cryptococcus neoformans and Cryptococcus gattii. If the result is positive, the specimen will be titered and reported from less than 1:5 to greater than or equal to 1:2560. This assay does not distinguish between C. neoformans and C. gattii. Testing hemolyzed serum samples may lead to false negatives. Current interpretive data last revised 2018. Blood 02/18/2024 4:15 PM CDT 02/18/2024 5:43 PM CDT Jinyn Salmon NP LAB MICROBIOLOGY - GENER AL ORDERABLES Final Result Performing Organization Address [facility] de Phone Number [facility] [place] [address] * Blastomyces antibody, EIA, serum Blood (02/18/2024 4:15 PM CDT) Pathologist [facility] Blastomyces Antibody Negative Negative [facility] Comment: A single negative result does not exclude the diagnosis of blastomycosis. ??Repeat testing on a new sample in 7-14 days if clinically indicated. Test Performed by: [place] [address] [employer]: Jason Sandy M.D. Ph.D.; CLIA# [id number] Blood 02/18/2024 4:15 PM CDT 02/18/2024 5:52 PM CDT Jinny Salmon COORDINATOR OF PLACEMENT LAB MICROBIOLOGY - GENER AL ORDERABLES Final Result Performing Organization Address [facility] de Phone Number [facility] Department [place] [address] [facility] * Osmolality, blood (02/18/2024 4:15 PM CDT) Pathologist [facility] Osmo 278 275 - 300 mOsm/kg Blood 02/18/2024 4:15 PM CDT 02/18/2024 4:23 PM CDT Jinny Salmon NP LAB BLOOD ORDERABLES Fin al Result Performing Organization Address [facility] de Phone Number [place] [address] * (ABNORMAL) Protime-INR (02/18/2024 4:15 PM CDT) Pathologist [facility] PT 20.2(H) 10.3 - 13.7 sec INR 1.77(H) 0.90 - 1.20 [facility] Comment: Interpretive data Oral anticoagulant therapeutic ranges: Venous thromboembolism prophylaxis or treatment: 2.0-3.0 CARDIOLOGY Standard range: 2.0-3.0 High-intensity range: 2.5-3.5 Refer to indication-specific guidelines for appropriate target ranges for prosthetic heart valve replacement. Current interpretive data was last revised on 2019. Blood 02/18/2024 4:15 PM CDT 02/18/2024 4:30 PM CDT Jinny Salmon COORDINATOR OF PLACEMENT LAB BLOOD ORDERABLES Fin al Result Performing Organization Address [facility] [place] [address] * Troponin I high-sensitivity (02/18/2024 4:15 PM CDT) Pathologist [facility] Trop I hs 4 <=35 ng/L Comment: Interpretive Data For further hscTnI resources including the diagnostic algorithm and an aid in interpretation, copy and paste this link: [email or web address].testcatalog.org/[email or web address] Current Interpretive Data last revised 2020. Blood 02/18/2024 4:15 PM CDT 02/18/2024 4:28 PM CDT Jinny Salmon COORDINATOR OF PLACEMENT LAB BLOOD ORDERABLES Fin al Result Performing Organization Address City/[facility] Co de Phone Number [facility] [place] [address] * (ABNORMAL) Pro B-type natriuretic peptide (02/18/2024 4:15 PM CDT) NT-proBNP 3,826(H) <=300 pg/mL Comment: Interpretive Comments: A. Dyspnea in Acute Care Setting All Ages: ?< 300 pg/ml, acute heart failure unlikely. < 50 yrs: ?300 - 450 pg/ml, further investigation warranted. ? > 450 pg/ml, acute heart failure likely. 50 - 74 yrs: ? 300 - 900 pg/ml, further investigation warranted. ? > 900 pg/ml, acute heart failure likely . > or = 75 yrs: ? 450 - 1800 pg/ml, further investigation warranted. ? > 1800 pg/ml, acute heart failure likely. B. Non-acute Setting < 75 yrs ? < 125 pg/ml, rules out heart failure. ? > or = 125 pg/ml, further investigation warranted. > or = 75 yrs ?< 450 pg/ml, rules out heart failure. ? > or = 450 pg/ml, further investigation warranted. - Knowledge of each individual patient's NT-proBNP range may be more useful than using similar cut-points for every patient. Please note that marked elevations in NT-proBNP levels may be observed in state other than Left Ventricular Congestive Failure, including: acute coronary syndromes, right heart strain/failure (including pulmonary embolism and cor pulmonale), critical illness, renal failure, as well as advanced age. - References: 1. Courtney NUNN et.al. Eur Heart J. 2006:27:330-337. 2. Sukhi OLSON, José Miguel HERRERA. J. AM Jeremy Cardiol: Cardiovasc Imag. 2009;2: 216- 225. Interpretive Data Last Revised Date: 2018. Blood 02/18/2024 4:15 PM CDT 02/18/2024 4:23 PM CDT Jinny Salmon COORDINATOR OF PLACEMENT LAB BLOOD ORDERABLES Fin al Result Performing Organization Address [facility] Co de Phone Number [facility] [place] [address] * Creatine kinase (CK), total (02/18/2024 4:15 PM CDT) Pathologist [facility] CK 68 40 - 300 Units/L Blood 02/18/2024 4:15 PM CDT 02/18/2024 4:23 PM CDT Jinny Salmon COORDINATOR OF PLACEMENT LAB BLOOD ORDERABLES Fin al Result Performing Organization Address [facility] de Phone Number [facility] Department [place] [address] * (ABNORMAL) Lactate (02/18/2024 4:15 PM CDT) Pathologist [facility] Lactate 3.2(H) 0.7 - 2.0 mmol/L Blood 02/18/2024 4:15 PM CDT 02/18/2024 4:28 PM CDT Jinny Salmon COORDINATOR OF PLACEMENT LAB BLOOD ORDERABLES Fin al Result Performing Organization Address [facility] [place] [address] * Mold Blood Culture Blood (02/18/2024 3:54 PM CDT) Pathologist [facility] Report Final Report: No growth of fungus Blood 02/18/2024 3:54 PM CDT 02/18/2024 4:57 PM CDT Narrative [facility] - 03/17/2024 7:17 AM CDT Testing performed by [facility] ([phone]). Jinny Salmon COORDINATOR OF PLACEMENT LAB MICROBIOLOGY - GENER AL ORDERABLES Final Result Performing Organization Address [facility]/ZIP Co de Phone Number [facility] [place] [address] * ECG 12 lead (02/18/2024 3:07 PM CDT) Ventricular Rate EKG/Min [address] [facility] Atrial Rate 74 BPM [facility] DC-Interval (MSEC) 180 ms [facility] QRS-Interval (MSEC) [address] [facility] QT-Interval (MSEC) 404 ms [facility] QTc 448 ms [facility] P [place] 58 degrees [facility] R [place] -2 degrees [facility] T [place] 18 degrees [facility] Diagnosis Normal sinus rhythm Normal ECG When compared with ECG of 03-OCT-2023 21:46, Vent. rate has decreased BY ??45 BPM Confirmed by AGUSTIN HORNE M.D ([id number]) on 02/21/2024 2:28:20 PM [facility] 02/18/2024 3:07 PM CDT 02/21/2024 2:28 PM CDT us Jinny Salmon COORDINATOR OF PLACEMENT ECG ORDERABLES Final Re sult Performing Organization Address [facility]/ZIP Co de Phone Number [facility] * (ABNORMAL) Urinalysis reflex to microscopic and culture Urine (02/18/2024 2:25 PM CDT) Color, ur Yellow Yellow Clarity, ur Clear Clear [facility] Specific gravity, ur 1.034(H) 1.003 - 1.030 [facility] pH, urine 6.0 [facility] Comment: Interpretive Data ? Urine pH is affected by diet, medications, systemic acid-base disturbances, and renal tubular function. ??pH may affect urinary stone formation. ??For example, urine pH below 6.0 may help reduce the tendency for calcium phosphate stones and pH greater than 6.0 may reduce the tendency for uric acid stone formation. Source: [facility] Current Interpretive Data was last revised on 2017 Protein, ur ql Trace Negative [facility] Glucose, ur ql Negative Negative [facility] Ketones, ur Negative Negative [facility] Bilirubin, ur Negative Negative [facility] Blood, ur Negative Negative [facility] Urobilinogen, ur <2.0 <2.0 mg/dL [facility] Nitrite, ur Negative Negative [facility] Leukocyte esterase, ur Negative Negative [facility] UA reflex comment Reflex conditions for microscopic UA and culture not met. [facility] Urine 02/18/2024 2:2 5 PM CDT 02/18/2024 2:32 PM CDT Lexa Constantino MD LAB MICROBIOLOGY - GENER AL ORDERABLES Final Result Performing Organization Address City/[facility]/ZIP Co de Phone Number [facility] Department [place] [address] * Critical Result Callback Chemistry (02/18/2024 12:41 PM CDT) Date Notified [id number] Time Notified 1255 [facility] TestName Sepsis Lactate [facility] Called/Read Back [facility] Credentials MD [facility] Called By alistair [facility] Blood 02/18/2024 12:4 1 PM CDT 02/18/2024 12:49 PM CDT Lexa Constantino MD LAB BLOOD ORDERABLES Fin al Result [facility] Department [place] [address] * (ABNORMAL) Sepsis Lactate w/ Reflex (02/18/2024 12:41 PM CDT) Sepsis Lactate 5.0(C) 0.7 - 2.0 mmol/L Blood 02/18/2024 12:4 1 PM CDT 02/18/2024 12:49 PM CDT Lexa Constantino MD LAB BLOOD ORDERABLES Fin al Result Performing Organization Address [facility] de Phone Number [facility] [place] [address] * MRSA Only (Staphylococcus aureus) Culture Nasal (02/18/2024 9:28 AM CDT) Report Final Report: Negative Nasal 02/18/2024 9:28 AM CDT 02/18/2024 9:47 AM CDT Narrative [facility] - 02/19/2024 1:25 PM CDT Testing performed by [facility] ([phone]). La Owens MD LAB MICROBIOLOGY - GENE RAL ORDERABLES Final Result Performing Organization Address [facility] de Phone Number [facility] [place] [address] * (ABNORMAL) Sepsis Lactate w/ Reflex (02/18/2024 9:28 AM CDT) Sepsis Lactate 3.4(H) 0.7 - 2.0 mmol/L Blood 02/18/2024 9:28 AM CDT 02/18/2024 9:38 AM CDT Lexa Constantino MD LAB BLOOD ORDERABLES Fin al Result Performing Organization Address [facility] de Phone Number [facility] [place] [address] * DC CRITICAL CARE ILL/INJURED PATIENT INIT 30-74 MIN (02/18/2024 9:18 AM CDT) Narrative La Owens MD - 02/18/2024 9:18 AM CDT La Owens MD ? 02/18/2024 ??9:19 AM Critical Care Performed by: La Owens MD Authorized by: La Owens MD ?? Critical care provider statement: As reflected in the history, physical exam, orders, notes, and/or MDM, I was personally present while the patient was critically ill and provided critical care services for 30 minutes, excluding time involved in separately billable procedures. ??Critical care was necessary to treat or prevent imminent or life-threatening deterioration of the following condition(s): ?? sepsis ??Critical care was time spent by me providing the following: ? serial bedside patient exams, continuous telemetry, continuous pulse oximetry and resuscitation with fluids ?? obtain appropriate cultures, review prior cultures/records and empiric broad coverage antibiotics ?? I provided emergent necessary critical care medicine services to this patient. I ordered and reviewed test results and/or imaging studies. I spent time discussing the management of this critically ill patient with consultants and the medical staff. I spent time discussing the management and therapeutic options for this critically ill patient with the patient themselves or with the appropriate designated surrogate decision-maker. I spent time documenting in the medical record. us La Owens MD IN CLINIC/BEDSIDE ORDER DARCY Final Result * CT Chest W Contrast (02/18/2024 7:19 AM CDT) Anatomical Region Laterality Modality Body N/A Computed Tomogra phy 02/18/2024 7:55 AM CDT Impressions 02/18/2024 7:55 AM CDT Interval development of left lower lobe cavitary pneumonia with a left pleural effusion that has increased in size compared to the prior study. Compared to prior study, right basilar pneumonia has resolved with decrease in right pleural effusion. Electronically signed by: Vik Moreira M.D. Narrative 02/18/2024 7:55 AM CDT EXAMINATION: CT Chest WITH INTRAVENOUS CONTRAST TECHNIQUE: Standard postcontrast CT of the chest was performed after the administration of the following amount of Optiray 350 intravenous contrast: 70 mL HISTORY: Comparison made to prior study of 12/03/2023 Again seen is mediastinal lymphadenopathy with an enlarged subcarinal lymph node that is likely reactive and unchanged when compared to the prior study with a short axis measurement of 2.3 cm. Moderate gynecomastia is again seen. There are bilateral pleural effusions. The right is smaller than on the prior study of the left is larger than on the prior study. Cavitary pneumonia is seen in the left base which is concerning for an infectious pneumonia. Bilateral small pleural effusions are seen. The previously noted right lower lobe consolidation has resolved. No pneumothorax. The heart size is mildly enlarged but unchanged. Images of the upper abdomen show mild colonic thickening in keeping with colitis with some fluid within the colon. In addition, there are some small mesenteric lymph nodes and partial colectomy surgical changes. Bone windows do not demonstrate any osseous lesion. Procedure Note Vik Moreira MD - 02/18/2024 EXAMINATION: CT Chest WITH INTRAVENOUS CONTRAST TECHNIQUE: Standard postcontrast CT of the chest was performed after the administration of the following amount of Optiray 350 intravenous contrast: 70 mL HISTORY: Comparison made to prior study of 12/03/2023 Again seen is mediastinal lymphadenopathy with an enlarged subcarinal lymph node that is likely reactive and unchanged when compared to the prior study with a short axis measurement of 2.3 cm. Moderate gynecomastia is again seen. There are bilateral pleural effusions. The right is smaller than on the prior study of the left is larger than on the prior study. Cavitary pneumonia is seen in the left base which is concerning for an infectious pneumonia. Bilateral small pleural effusions are seen. The previously noted right lower lobe consolidation has resolved. No pneumothorax. The heart size is mildly enlarged but unchanged. Images of the upper abdomen show mild colonic thickening in keeping with colitis with some fluid within the colon. In addition, there are some small mesenteric lymph nodes and partial colectomy surgical changes. Bone windows do not demonstrate any osseous lesion. IMPRESSION: Interval development of left lower lobe cavitary pneumonia with a left pleural effusion that has increased in size compared to the prior study. Compared to prior study, right basilar pneumonia has resolved with decrease in right pleural effusion. Electronically signed by: Vik Moreira M.D. Lexa Constantino MD IM CT PROCEDURES Final Result * (ABNORMAL) POCT creatinine (02/18/2024 6:59 AM CDT) Creatinine POC 1.6(H) 0.7 - 1.3 mg/dL Blood 02/18/2024 6:59 AM CDT 02/18/2024 6:59 AM CDT us Azucena Kang MD LAB POCT ORDERABLES - DEVIC E Final Result Performing Organization Address [facility] Co de Phone Number [facility] [place] [address] * (ABNORMAL) Calcium, ionized (02/18/2024 6:53 AM CDT) Calcium, Ionized 4.00(L) 4.50 - 5.10 mg/dL Blood 02/18/2024 6:53 AM CDT 02/18/2024 6:57 AM CDT Lexa Constantino MD LAB BLOOD ORDERABLES Fin al Result Performing Organization Address [facility] de Phone Number [facility] [place] [address] * ECG 12-LEAD (02/18/2024 6:13 AM CDT) Narrative [facility] - 02/18/2024 6:13 AM CDT Azucena Kang MD ? 02/18/2024 ??6:14 AM ECG 12 lead Date/Time: 02/18/2024 6:13 AM Performed by: Azucena aKng MD Authorized by: Lexa Constantino MD ?? Rate: ??ECG rate: ??118 ??ECG rate assessment: tachycardic ?? Rhythm: ??Rhythm: sinus tachycardia ?? Ectopy: ??Ectopy: none ?? QRS: ??QRS axis: ??Normal ??QRS intervals: ??Normal Conduction: ??Conduction: normal ?? ST segments: ??ST segments: ??Normal T waves: ??T waves: normal ?? Previous ECG: ??Previous ECG: ??Compared to current ??Date of previous ECG: ??10/03/2023 ??Similarity: ??No change Interpretation: ??Interpretation: No acute injury pattern ?? Recommended Follow-up: ??Recommended follow up: further workup in the ED ?? Procedure Note Azucena Kang MD - 02/18/2024 6:13 AM CDT Procedure ECG 12 lead Date/Time: 02/18/2024 6:13 AM Performed by: Azucena Kang MD Authorized by: Lexa Constantino MD Rate: ECG rate: 118 ECG rate assessment: tachycardic Rhythm: Rhythm: sinus tachycardia Ectopy: Ectopy: none QRS: QRS axis: Normal QRS intervals: Normal Conduction: Conduction: normal ST segments: ST segments: Normal T waves: T waves: normal Previous ECG: Previous ECG: Compared to current Date of previous EC10/03/2023 Similarity: No change Interpretation: Interpretation: No acute injury pattern Recommended Follow-up: Recommended follow up: further workup in the ED Azucena Kang MD 02/18/24 0614 Lexa Constantino MD ECG ORDERABLES Final Re sult [facility] * XR Chest 1 Vw Portable (02/18/2024 6:13 AM CDT) Anatomical Region Laterality Modality Body, Chest N/A Computed Radiogr aphy 02/18/2024 7:03 AM CDT Impressions 02/18/2024 7:03 AM CDT Comparison is made to prior study 01/05/2024. In the interval, there has been development of a focal opacity left base which could represent fractures pneumonia. Bilateral tiny pleural effusions are seen. No pneumothorax, pulmonary edema. Heart size is moderately enlarged but unchanged. No pneumothorax. Clips are seen in the right upper quadrant Electronically signed by: Vik Moreira M.D. Narrative 02/18/2024 7:03 AM CDT EXAMINATION: 1 view chest radiograph Procedure Note Vik Moreira MD - 02/18/2024 EXAMINATION: 1 view chest radiograph IMPRESSION: Comparison is made to prior study 01/05/2024. In the interval, there has been development of a focal opacity left base which could represent fractures pneumonia. Bilateral tiny pleural effusions are seen. No pneumothorax, pulmonary edema. Heart size is moderately enlarged but unchanged. No pneumothorax. Clips are seen in the right upper quadrant Electronically signed by: Vik Moreira M.D. Lexa Constantino MD IMG XR PROCEDURES Final Result * DC CRITICAL CARE ILL/INJURED PATIENT INIT 30-74 MIN (02/18/2024 6:09 AM CDT) Narrative Azucena Kang MD - 02/18/2024 6:09 AM CDT Azucena Kang MD ? 02/18/2024 ??6:36 AM Critical Care Performed by: Azucena Kang MD Authorized by: Azucena Kang MD ?? Critical care provider statement: As reflected in the history, physical exam, orders, notes, and/or MDM, I was personally present while the patient was critically ill and provided critical care services for 45 minutes, excluding time involved in separately billable procedures. ??Critical care was necessary to treat or prevent imminent or life-threatening deterioration of the following condition(s): ?? hypoxic respiratory failure ?? sepsis ??Critical care was time spent by me providing the following: ? continuous telemetry, continuous pulse oximetry, interpretation of bedside monitors, imaging, and arterial/venous lab draws, serial bedside patient exams and resuscitation with fluids ? supplemental oxygen ?? review prior cultures/records, obtain appropriate cultures and empiric broad coverage antibiotics ?? I provided emergent necessary critical care medicine services to this patient. I spent time discussing the management of this critically ill patient with consultants and the medical staff. I ordered and reviewed test results and/or imaging studies. I spent time discussing the management and therapeutic options for this critically ill patient with the patient themselves or with the appropriate designated surrogate decision-maker. I spent time documenting in the medical record. Azucena Kang MD IN CLINIC/BEDSIDE ORDERABLE S Final Result * (ABNORMAL) Cytomegalovirus (CMV) DNA PCR, quantitative Blood (02/18/2024 5:59 AM CDT) CMV DNA Detected( A) [facility] Comment: Interpretive Data: The quantifiable range of this assay is 34 IUnits/mL to 10,000,000 IUnits/mL (1.53 log IUnits/mL to 7.0 log IUnits/mL). Testing was performed by the NIA 6800 CMV Test ([employer] Testing performed at [facility]. Current interpretive data was last revised on 2021. CMV DNA IU/mL 215 IUnits/mL [facility] CMV DNA log IU/mL 2.33 log IUnits/mL [facility] Blood 02/18/2024 5:59 AM CDT 02/18/2024 6:43 AM CDT Lexa Constantino MD LAB MICROBIOLOGY - GENER AL ORDERABLES Final Result Performing Organization Address [facility] de Phone Number [facility] [place] [address] [facility] * Tacrolimus level random (02/18/2024 5:59 AM CDT) [facility] Tacrolimus random 4.6 ng/mL Comment: Interpretive Data Testing performed by liquid chromatography-tandem mass spectrometry. ??Therapeutic concentrations vary depending on type of transplanted organ and time elapsed since transplant. ??Typical trough concentrations range from 5-15 ng/mL. ??This test was developed and its performance characteristics determined by the [facility] consistent with CLIA requirements. ??This test has not been cleared or approved by the [place] Food and Drug administration. ??Current interpretive data last reviewed 2020. Blood 02/18/2024 5:59 AM CDT 02/18/2024 6:14 AM CDT Lexa Constantino MD LAB BLOOD ORDERABLES Fin al Result Performing Organization Address [facility] Co de Phone Number [facility] Department [place] [address] * (ABNORMAL) Manual Differential (02/18/2024 5:53 AM CDT) Pathologist [facility] Differential Manual Cells Counted 116 [facility] Neutrophil abs 6.8(H) 1.5 - 6.5 K/cumm [facility] Imm gran abs 0.4(H) 0.0 - 0.1 K/cumm [facility] Lymphocyte abs 6.0(H) 0.8 - 3.3 K/cumm [facility] Monocyte abs 10.8(H) 0.2 - 0.8 K/cumm [facility] Neutrophil pct 28.4 % [facility] Comment: Interpretive Data Percent cell count reference ranges are not reported, since discordance with absolute values may lead to misinterpretation of CBC data. Current Interpretive Data was last revised on 2018. Lymphocyte pct 25.0 % [facility] Comment: Interpretive Data Percent cell count reference ranges are not reported, since discordance with absolute values may lead to misinterpretation of CBC data. Current Interpretive Data was last revised on 2018. Monocyte pct 44.9 % [facility] Comment: Interpretive Data Percent cell count reference ranges are not reported, since discordance with absolute values may lead to misinterpretation of CBC data. Current Interpretive Data was last revised on 2018. Myelocyte pct 1.7 % [facility] Blood 02/18/2024 5:53 AM CDT 02/18/2024 6:18 AM CDT us Lexa Constantino MD LAB BLOOD ORDERABLES Fin al Result [facility] Department [place] [address] * (ABNORMAL) Magnesium (02/18/2024 5:53 AM CDT) [facility] Magnesium 1.3(L) 1.4 - 2.5 mg/dL Blood 02/18/2024 5:53 AM CDT 02/18/2024 6:14 AM CDT us Azucena Kang MD LAB BLOOD ORDERABLES Final Result [facility] [place] [address] * (ABNORMAL) Phosphorus (02/18/2024 5:53 AM CDT) Pathologist [facility] Phosphorus, pl 2.2(L) 2.3 - 4.5 mg/dL Blood 02/18/2024 5:53 AM CDT 02/18/2024 6:14 AM CDT Azucena Kang MD LAB BLOOD ORDERABLES Final Result Performing Organization Address [facility] de Phone Number [facility] [place] [address] * eGFR (02/18/2024 5:53 AM CDT) [facility] eGFR 61 >=60 mL/min/1. 73 m2 Comment: Interpretive Data [...] interpretive data was last reviewed 2021. Blood 02/18/2024 5:53 AM CDT 02/18/2024 6:14 AM CDT Lexa Constantino MD LAB BLOOD ORDERABLES Fin al Result [facility] Department [place] [address] * (ABNORMAL) Blood culture Blood Arm, right (02/18/2024 5:53 AM CDT) Direct Specimen Exam Stain: Gram Positive Cocci in clusters Time to culture positivity (aerobic media): 20.2 hours Report Final Report: Staphylococcus aureus For susceptibility results, refer to accession number [id number] on the blood culture from 02/18/2024 (.) [facility] Organism STAPHYLOCOCCUS AUREUS [facility] Blood (Arm, right) 02/18/2024 5:53 AM CDT 02/18/2024 6:18 AM CDT Narrative [facility] - 02/23/2024 11:36 AM CDT From a different site than #1. Collection->Peripheral 1. ?Blood cultures are incubated for 4 days on a continuously monitored blood culture system. The first report of a negative culture is issued within 24 hours of receipt of the specimen in the laboratory. 2. ?Positive culture results are reported as soon as they are detected. 3. ?The most important factor for detection of microbes in the setting of bloodstream infection is the volume of blood submitted for culture. Failure to collect an optimal blood volume can result in false negative blood cultures. For pediatric patients, the recommended blood volume to collect is 1 mL of blood per year of patient age (up to 20 mL) per blood culture set. For adult patients, 20 mL of blood, divided equally between aerobic and anaerobic blood culture bottles, is recommended for each blood culture set. 4. ?For blood cultures with Gram-positive cocci, a rapid molecular test for organism identification may be performed using the [employer] Gram-Positive Blood Culture Assay. This assay detects microbial DNA in positive blood culture broth via hybridization of target DNA to capture oligonucleotides on a microarray. This assay has been cleared by the [place] Food and Drug Administration and its performance characteristics have been verified by the [facility]. 5. ?For questions about this culture, contact the Microbiology Laboratory at [phone]. Interpretive data was last revised on 2020. Lexa Constantino MD LAB MICROBIOLOGY - GENER AL ORDERABLES Final Result [facility] Department [place] [address] * (ABNORMAL) Blood culture Blood Arm, left (02/18/2024 5:53 AM CDT) Direct Specimen Exam Molecular Analysis: Staphylococcus aureus, methicillin susceptible (MSSA) detected by the [employer] Blood Culture Nucleic Acid Test. This test does not exclude the possibility of a mixed bacterial infection. Notification of: Staphylococcus aureus, methicillin susceptible (MSSA) called to and read back by: Nancy Santiago NP [phone] on 02/19/2024 03:51:26 by: Bahman Torres MT Direct Specimen Exam Stain: Gram Positive Cocci in clusters Time to culture positivity (anaerobic media): 17.7 hours Notification of: Gram Positive Cocci in clusters called to and read back by: Nancy Santiago NP [phone] on 02/19/2024 00:45:19 by: Bahman Torres MT [facility] Report Final Report: Staphylococcus aureus Methicillin susceptible (MSSA) by penicillin binding protein 2a (PBP2a) testing. (.) [facility] Organism STAPHYLOCOCCUS AUREUS [facility] Blood (Arm, left) 02/18/2024 5:53 AM CDT 02/18/2024 6:18 AM CDT Narrative [facility] - 02/22/2024 1:03 PM CDT Collection->Peripheral 1. ?Blood cultures are incubated for 4 days on a continuously monitored blood culture system. The first report of a negative culture is issued within 24 hours of receipt of the specimen in the laboratory. 2. ?Positive culture results are reported as soon as they are detected. 3. ?The most important factor for detection of microbes in the setting of bloodstream infection is the volume of blood submitted for culture. Failure to collect an optimal blood volume can result in false negative blood cultures. For pediatric patients, the recommended blood volume to collect is 1 mL of blood per year of patient age (up to 20 mL) per blood culture set. For adult patients, 20 mL of blood, divided equally between aerobic and anaerobic blood culture bottles, is recommended for each blood culture set. 4. ?For blood cultures with Gram-positive cocci, a rapid molecular test for organism identification may be performed using the [employer] Gram-Positive Blood Culture Assay. This assay detects microbial DNA in positive blood culture broth via hybridization of target DNA to capture oligonucleotides on a microarray. This assay has been cleared by the [place] Food and Drug Administration and its performance characteristics have been verified by the [facility]. 5. ?For questions about this culture, contact the Microbiology Laboratory at [phone]. Interpretive data was last revised on 2020. Organism Antibiotic Method Susceptibility Staphylococcus aureus Daptomycin (LOVE) (LOVE) INTERPRET ATION Not Susceptible Staphylococcus aureus Doxycycline (LOVE) INTERPRETATIO N Susceptible Staphylococcus aureus Linezolid (LOVE) INTERPRETATIO N Susceptible Staphylococcus aureus Trimethoprim with Sulfamethoxazole (LOVE) INTERPRETATION Susceptible Staphylococcus aureus Clindamycin (LOVE) INTERPRETATIO N Susceptible Staphylococcus aureus Erythromycin (LOVE) INTERPRETATIO N Resistant Staphylococcus aureus Vancomycin (LOVE) INTERPRETATIO N Susceptible Staphylococcus aureus Oxacillin (LOVE) INTERPRETATIO N Susceptible Staphylococcus aureus Cefazolin (LOVE) INTERPRETATIO N Susceptible Staphylococcus aureus Ceftriaxone (LOVE) INTERPRETATIO N Susceptible us Lexa Constantino MD LAB MICROBIOLOGY - GENER AL ORDERABLES Final Result [facility] Department [place] [address] * (ABNORMAL) Sepsis Lactate w/ Reflex (02/18/2024 5:53 AM CDT) Sepsis Lactate 3.3(H) 0.7 - 2.0 mmol/L Blood 02/18/2024 5:53 AM CDT 02/18/2024 6:10 AM CDT us Lexa Constantino MD LAB BLOOD ORDERABLES Fin al Result [facility] Department [place] [address] * (ABNORMAL) Comprehensive metabolic panel (02/18/2024 5:53 AM CDT) Sodium 127(L) 135 - 145 mmol/L Potassium, pl 4.6 3.3 - 4.9 mmol/L [facility] Chloride 96(L) 97 - 110 mmol/L [facility] CO2 21(L) 22 - 32 mmol/L [facility] Anion gap 10 2 - 15 mmol/L [facility] BUN 26(H) 6 - 25 mg/dL [facility] Creatinine 1.54(H) 0.80 - 1.30 mg/dL [facility] Glucose 89 70 - 199 mg/dL [facility] Comment: Interpretive Data Fasting glucose >/= [...] interpretive data was last revised 2022. Calcium 7.7(L) 8.5 - 10.3 mg/dL [facility] Bilirubin, total 3.9(H) 0.1 - 1.2 mg/dL [facility] Protein, pl 5.1(L) 6.5 - 8.5 g/dL [facility] Albumin 2.5(L) 3.5 - 5.0 g/dL [facility] Alk phos 175(H) 40 - 130 Units/L [facility] ALT 31 7 - 55 Units/L [facility] AST 69(H) 10 - 50 Units/L [facility] Blood 02/18/2024 5:53 AM CDT 02/18/2024 6:14 AM CDT Lexa Constantino MD LAB BLOOD ORDERABLES Fin al Result Performing Organization Address City/[facility]/ZIP Co de Phone Number [facility] Department [place] [address] * (ABNORMAL) CBC with auto differential (02/18/2024 5:53 AM CDT) WBC 24.1(H) 3.8 - 9.9 K/cumm Hgb 12.7(L) 13.0 - 17.5 g/dL [facility] Hct 34.3(L) 38.9 - 50.3 % [facility] Plt 94(L) 150 - 400 K/cumm [facility] MPV 12.7(H) 9.1 - 12.3 fL [facility] RBC 3.48(L) 4.30 - 5.80 M/cumm [facility] MCV 98.6(H) 81.3 - 96.4 fL [facility] MCH 36.5(H) 27.1 - 33.3 pg [facility] MCHC 37.0(H) 32.3 - 35.7 g/dL [facility] RDW CV 16.0(H) 11.1 - 14.9 % [facility] RDW SD 57.3(H) 35.7 - 48.1 fL [facility] NRBC abs 0.00 0.00 - 0.01 K/cumm [facility] Blood 02/18/2024 5:53 AM CDT 02/18/2024 6:14 AM CDT Lexa Constantino MD LAB BLOOD ORDERABLES Fin al Result [facility] Department [place] [address] * (ABNORMAL) Respiratory pathogen panel Nasopharyngeal (02/18/2024 5:24 AM CDT) [facility] Influenza A RNA Not Detected Not Detected Influenza B RNA Not Detected Not Detected [facility] RSV RNA Not Detected Not Detected [facility] COVID-19 RNA Not Detected Not Detected [facility] Coronavirus 229E RNA Not Detected Not Detected [facility] Coronavirus HKU1 RNA Not Detected Not Detected [facility] Coronavirus NL63 RNA Not Detected Not Detected [facility] Coronavirus OC43 RNA Not Detected Not Detected [facility] Adenovirus DNA Not Detected Not Detected [facility] Metapneumovirus RNA Not Detected Not Detected [facility] Rhinovirus/Enterov irus RNA Detected(A) Not Detected [facility] Parainfluenza 1 RNA Not Detected Not Detected [facility] Parainfluenza 2 RNA Not Detected Not Detected [facility] Parainfluenza 3 RNA Not Detected Not Detected [facility] Parainfluenza 4 RNA Not Detected Not Detected [facility] B. pertussis DNA Not Detected Not Detected [facility] B. parapertussis DNA Not Detected Not Detected [facility] C. pneumoniae DNA Not Detected Not Detected [facility] M. pneumoniae DNA Not Detected Not Detected [facility] Nasopharyngeal 02/18/2024 5: 24 AM CDT 02/18/2024 5:54 AM CDT Narrative [facility] - 02/18/2024 7:26 AM CDT Is the Patient experiencing symptoms consistent with COVID?->Yes Surveillance testing for transplant patient?->No ??Interpretive Data The [employer] FilmArray Respiratory Panel (RP2.1) assay is a multiplexed real-time PCR based nucleic acid test capable of simultaneous qualitative detection and identification of multiple respiratory viral and bacterial nucleic acids, including SARS Coronavirus 2 (the causative agent of COVID-19). The following bacteria, viruses and virus subtypes can be identified using the FilmArray RP2.1 assay: Bordetella pertussis, Bordetella parapertussis, Chlamydia pneumoniae, Mycoplasma pneumoniae, Adenovirus, SARS Coronavirus 2, seasonal coronaviruses (Coronavirus HKU1, Coronavirus NL63, Coronavirus 229E, and Coronavirus OC43), Influenza A, Influenza A subtype H1, Influenza A subtype H3, Influenza A subtype 2009 H1, Influenza B, Metapneumovirus, Parainfluenza 1, Parainfluenza 2, Parainfluenza 3, Parainfluenza 4, RSV, Rhinovirus/Enterovirus. Due to the genetic similarity between human Rhinovirus and Enterovirus, the FilmArray RP2.1 assay cannot reliably differentiate them. Coronavirus OC43 may cross-react with some isolates of Coronavirus HKU1. ??A dual positive result may be due to cross-reactivity or may indicate a co-infection. The detection and identification of specific viral and bacterial nucleic acids from individuals exhibiting signs and symptoms of a respiratory infection aids in the diagnosis of respiratory infection if used in conjunction with other clinical and epidemiological information. ??The results of this test should not be used as the sole basis for diagnosis, treatment, or other management decisions. ??Negative results in the setting of a respiratory illness may be due to infection with pathogens that are not detected by this test. ??Positive results do not rule out infection/co-infection with other organisms. ??The agent(s) detected by the FilmArray RP2.1 may not be the definite cause of disease. ??Additional testing (lab, imaging, etc.) may be necessary when evaluating a patient with possible respiratory tract infection. The FilmArray RP2.1 assay has FDA clearance for testing of [employer]IN[employer]ACEMENT swabs. ??The performance of additional specimen types has been assessed by the performing laboratory. ??The performance characteristics of this assay have been determined by [facility] Molecular Infectious Disease Laboratory. Current interpretive data was last revised on 22. us Azucena Kang MD LAB MICROBIOLOGY - GENERAL ORDERABLES Final Result [facility] [place] [address] documented in this encounter Visit Diagnoses Diagnosis Bacteremia- Primary Pneumonia of left lung due to infectious organism, unspecified part of lung Sepsis with acute hypoxic respiratory failure, due to unspecified organism, unspecified whether septic shock present (HCC) Thrombocytopenia (HCC) Unspecified thrombocytopenia Hyponatremia Hyposmolality and/or hyponatremia [place]ATSON (acute kidney injury) (HCC) Shock (CMS/HCC) (HCC) Unspecified shock Bacteremia Acute respiratory failure with hypoxia ([facility]/HCC) (HCC) Bicytopenia WATSON (acute kidney injury) (HCC) CVID (common variable immunodeficiency) (HCC) 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 Other chronic sinusitis History of pulmonary embolus (PE) History of liver transplant ([facility]) (HCC) Liver replaced by transplant documented in this encounter Admitting Diagnoses Diagnosis Pneumonia of left lung due to infectious organism, unspecified part of lung documented in this encounter Administered Medications Inactive Administered Medications - up to 3 most recent administrations Medication Order MAR Action Action Date Dose Rate Site acetaminophen (TYLENOL) tablet 1,000 mg 1,000 mg, oral, Every 6 hours PRN, 1st line for pain, fever, Starting on Wed02/18/24 at 0548 Given 02/19/2024 9:07 AM CDT 1,000 mg Given 02/18/2024 7:50 AM CDT 1,000 mg azithromycin (ZITHROMAX) 500 mg/255 mL in sodium chloride 0.9% (premix) 500 mg 500 mg, intravenous, at 255 mL/hr, Administer over 60 Minutes, Every 24 hours scheduled, First dose on Wed02/18/24 at 0549, Indications: Pneumonia, Community AcquiredIndications:Pneumonia, Community Acquired New Bag 02/18/2024 6:00 AM CDT 500 mg 255 mL/hr azithromycin (ZITHROMAX) 500 mg/255 mL in sodium chloride 0.9% (premix) 500 mg 500 mg, intravenous, at 255 mL/hr, Administer over 60 Minutes, Every 24 hours scheduled, First dose (after last modification) on Wed02/19/24 at 0900, For 2 doses, Indications: Pneumonia, Community AcquiredIndications:Pneumonia, Community Acquired New Bag 02/20/2024 9:20 AM CDT 500 mg 255 mL/hr New Bag 02/19/2024 8:56 AM CDT 500 mg 255 mL/hr calcium gluconate 2 g/100 mL in sodium chloride (premix) solution 2 g 2 g, intravenous, Administer over 60 Minutes, Once, On Wed02/18/24 at 0712, For 1 dose, Room temperature only, Indications: hypocalcemiaIndications:hypocalce justine New Bag 02/18/2024 7:33 AM CDT 2 g Carrier Fluids for Secondary Infusion - 0.9% Sodium Chloride 30 mL, intravenous, As needed, For priming tubing and/or flushing, Starting on Wed02/21/24 at 0534, 0-250 ml/hr to flush line after IV infusions when no maintenance IV ordered. Infuse 30mL at the same rate as the secondary infusion. Run as primary IV, not intended for KVO. ceFAZolin (ANCEF) 2,000 mg/20 mL in sterile water (premix) 2,000 mg 2,000 mg, intravenous, at 400 mL/hr, Administer over 3 Minutes, Every 8 hours scheduled, First dose (after last modification) on Wed02/19/24 at 2200, Indications: Blood Stream/Endovascular InfectionIndications:Blood Stream/Endovascular Infection Given 02/26/2024 1:34 PM CDT 2,000 mg 4 00 mL/hr Given 02/26/2024 6:38 AM CDT 2,000 mg 400 mL/hr Given 02/25/2024 9:18 PM CDT 2,000 mg 400 mL/hr cefepime (MAXIPIME) 2,000 mg/20 mL in sterile water (premix) 2,000 mg 2,000 mg, intravenous, at 240 mL/hr, Administer over 5 Minutes, Every 8 hours scheduled, First dose on Wed02/18/24 at 0548, Indications: SepsisIndications:Sepsis New Bag 02/18/2024 2:28 PM CDT 2,000 mg 240 mL /hr New Bag 02/18/2024 5:59 AM CDT 2,000 mg 240 mL/hr dextromethorphan-guaiFENesin (ROBITUSSIN-DM) 2-20 mg/mL syrup 10 mL 10 mL, oral, 4 times daily PRN, cough, Starting on Wed02/22/24 at 1254 Given 02/26/2024 6:38 AM CDT 10 mL Given 02/25/2024 9:15 PM CDT 10 mL Given 02/25/2024 6:20 AM CDT 10 mL enoxaparin (LOVENOX) syringe 40 mg 40 mg, subcutaneous, Daily (for enoxaparin), First dose on Wed02/18/24 at 2100, Indications: Deep Vein Thrombosis PreventionIndications:Deep Vein Thrombosis Prevention Given 02/25/2024 9:16 PM CDT 40 mg Right Upper Arm Given 02/24/2024 9:23 PM CDT 40 mg Le ft Lower Abdomen Given 02/23/2024 8:59 PM CDT 40 mg Le ft Lower Abdomen furosemide (LASIX) 10 mg/mL injection 20 mg 20 mg, intravenous, Once, On Wed02/25/24 at 1115, For 1 dose, For IV push: administer doses < 160 mg at a rate of 20 -40 mg/min. Doses >/= 160 mg should be administered no faster than 4 mg/min. Room temperature only Given 02/25/2024 12:03 PM CDT 20 mg furosemide (LASIX) 10 mg/mL injection 40 mg 40 mg, intravenous, Once, On Wed02/22/24 at 1330, For 1 dose, For IV push: administer doses < 160 mg at a rate of 20 -40 mg/min. Doses >/= 160 mg should be administered no faster than 4 mg/min. Room temperature only Given 02/22/2024 1:37 PM CDT 40 mg furosemide (LASIX) 10 mg/mL injection 40 mg 40 mg, intravenous, Once, On Wed02/23/24 at 1200, For 1 dose, For IV push: administer doses < 160 mg at a rate of 20 -40 mg/min. Doses >/= 160 mg should be administered no faster than 4 mg/min. Room temperature only Given 02/23/2024 11:31 AM CDT 40 mg guaiFENesin ER (MUCINEX) extended release tablet 600 mg 600 mg, oral, 2 times daily, First dose on Wed02/19/24 at 1130, Do not crush, chew, cut, dissolve, open or otherwise manipulate tablet/capsule., Indications: Cold SymptomsIndications:Cold Symptoms Given 02/26/2024 9:14 AM CDT 600 mg Given 02/25/2024 8:12 PM CDT 600 mg Given 02/25/2024 9:44 AM CDT 600 mg ioversoL (OPTIRAY 350) syringe 75 mL 75 mL, intravenous, Once in imaging, contrast, Starting on Wed02/18/24 at 0710, For 1 dose Contrast Given 02/18/2024 7:19 AM CDT 70 mL ipratropium-albuteroL (DUO-NEB) 0.5-2.5 mg/3 mL nebulizer solution 3 mL 3 mL, nebulization, 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 63.5 kg), intravenous, Once, On Wed02/18/24 at 0548, For 1 dose New Bag 02/18/2024 6:00 AM CDT 1,905 mL Lactated Ringer's (LR) bolus 500 mL 500 mL, intravenous, Once, On Wed02/18/24 at 0747, For 1 dose New Bag 02/18/2024 8:23 AM CDT 500 mL Lactated Ringer's (LR) bolus 500 mL 500 mL, intravenous, Once, On Wed02/18/24 at 0948, For 1 dose New Bag 02/18/2024 10:11 AM CDT 500 mL Lactated Ringer's (LR) bolus 500 mL 500 mL, intravenous, Once, On Wed02/18/24 at 1407, For 1 dose New Bag 02/18/2024 2:32 PM CDT 500 mL Lactated Ringer's (LR) bolus 500 mL 500 mL, intravenous, Once, On Wed02/19/24 at 1200, For 1 dose New Bag 02/19/2024 11:29 AM CDT 500 mL letermovir (PREVYMIS) tablet 480 mg 480 mg, oral, Daily, First dose on Wed02/18/24 at 0900, For 37 days, Do not crush, break, or open., I /authorizing provider attest that the patient meets the approved 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 Given 02/26/2024 9:14 AM CDT 480 mg Given 02/25/2024 9:44 AM CDT 480 mg Given 02/24/2024 8:54 AM CDT 480 mg linezolid (ZYVOX) 600 mg/300 mL in dextrose 5% (premix) 600 mg 600 mg, intravenous, at 150 mL/hr, Administer over 2 Hours, Every 12 hours scheduled, First dose on Wed02/18/24 at 1800, Indications: SepsisIndications:Sepsis New Bag 02/18/2024 5:30 PM CDT 600 mg 150 mL /hr magnesium sulfate 2 g/50 mL in water (premix) 2 g 2 g, intravenous, Administer over 60 Minutes, Once, On Wed02/18/24 at 0727, For 1 dose New Bag 02/18/2024 7:42 AM CDT 2 g magnesium sulfate 4 g/100 mL in water (premix) 4 g 4 g, intravenous, Administer over 90 Minutes, Every 4 hours PRN, magnesium replacement, Starting on Wed02/21/24 at 0535, For magnesium level of 1.2-1.5 mg/dL, Indications: hypomagnesemiaIndications:hypomagne semia magnesium sulfate 6 g in sodium chloride 0.9% 250 mL IVPB 6 g, intravenous, at 131 mL/hr, Administer over 120 Minutes, Every 4 hours PRN, magnesium replacement, Starting on Wed02/21/24 at 0535, For magnesium level less than 1.2 mg/dL and call/notify provider., Indications: hypomagnesemiaIndications:hypomagne semia metroNIDAZOLE (FLAGYL) 500 mg/100 mL in sodium chloride (premix) 500 mg 500 mg, intravenous, at 200 mL/hr, Administer over 30 Minutes, Every 8 hours scheduled, First dose on Wed02/18/24 at 0801, Room temperature only, Indications: Pneumonia, Hospital AcquiredIndications:Pneumonia, Hospital Acquired New Bag 02/18/2024 2:28 PM CDT 500 mg 200 mL/hr New Bag 02/18/2024 8:38 AM CDT 500 mg 200 mL/hr norepinephrine in dextrose 5% (LEVOPHED) 8,000 mcg/250 mL (32 mcg/mL) infusion (premix) 0-2 mcg/kg/min ? 63.5 kg (0-238.125 mL/hr, rounded to 0-238.13 mL/hr), 32 mcg/mL, intravenous, Titrated, Starting on Wed02/18/24 at 1032, Until Wed02/18/24 at 1710, Initial rate: 0.05 mcg/kg/min, Titrate: Up/Down, Titrate by: 0.01 mcg/kg/min, Every: 2 minutes, Goal: MAP, MAP Goal: 65-75 mmHg, Routine Rate/Dose Change 02/18/2024 4:44 PM CDT 0.03 mcg/kg/min 3.57 mL/hr New Bag 02/18/2024 4:19 PM CDT 0.06 mcg/kg/min 7.14 mL/ hr Rate/Dose Change 02/18/2024 3:00 PM CDT 0.08 mcg/kg/min 9. 53 mL/hr norepinephrine in dextrose 5% (LEVOPHED) 8,000 mcg/250 mL (32 mcg/mL) infusion (premix) 0-2 mcg/kg/min ? 70.7 kg (0-265.125 mL/hr, rounded to 0-265.13 mL/hr), 32 mcg/mL, intravenous, Titrated, Starting on 02/19/24 at 1315, Until 02/20/24 at 0509, Initial rate: 0.05 mcg/kg/min, Titrate: Up/Down, Titrate by: 0.01 mcg/kg/min, Every: 2 minutes, Goal: MAP, MAP Goal: Other (comment) / >65, Routine Rate/Dose Change 02/19/2024 3:47 PM CDT 0.01 mcg/kg/min 1.33 mL/hr New Bag 02/19/2024 12:34 PM CDT 0.02 mcg/kg/min 2.65 mL /hr ondansetron (ZOFRAN) injection 4 mg 4 mg, intravenous, Administer over 2 Minutes, Every 6 hours PRN, nausea, vomiting, Starting on Wed02/18/24 at 0548 perflutren protein-a (OPTISON) 3 mL in sodium chloride 0.9% 8 mL syringe 1-8 mL, intravenous, Once in imaging, contrast, Starting on Wed02/21/24 at 1108, For 1 dose, Intra-Procedure (CV) piperacillin-tazobactam (ZOSYN) 4.5 gram/120 mL in sodium chloride 0.9% (premix) 4.5 g 4.5 g, intravenous, at 240 mL/hr, Administer over 0.5 Hours, Every 6 hours scheduled, First dose on Wed02/18/24 at 2200, Indications: SepsisIndications:Sepsis New Bag 02/19/2024 1:47 PM CDT 4.5 g 240 mL /hr New Bag 02/19/2024 8:55 AM CDT 4.5 g 240 mL/hr New Bag 02/19/2024 2:16 AM CDT 4.5 g 240 mL/hr potassium chloride ER (KLOR-CON) extended release tablet 40 mEq 40 mEq, oral, Every 2 hours PRN, potassium replacement, Starting on Wed02/21/24 at 0535, HOLD dose and contact prescriber/provider if any of the following conditions are met: 1. Patient is undergoing any form of dialysis. 2. Serum creatinine is GREATER than 1.5 mg/dL For patients who cannot take oral, contact provider/prescriber for IV potassium. 40 mEq x 1 dose for potassium less than 2.6 mmol/L, call prescriber for additional orders; For potassium 2.6-2.9 mmol/L, give 40 mEq every 2 hours x 2 doses and obtain stat potassium level 2 hours after the 2nd dose; For potassium 3.0-3.1 mmol/L, give 40 mEq every 2 hours x 2 doses; For potassium 3.2-3.5 mmol/L, give 40 mEq x 1 dose. Tablets should not be crushed, chewed, dissolved, or otherwise manipulated. Capsules may be opened and sprinkled on a spoonful of applesauce or pudding, but the contents of the capsule should not be crushed or chewed., Indications: hypokalemiaIndications:hypokalemia potassium, sodium phosphates (PHOS-NAK) 280-160-250 mg packet 2 packet 2 packet, oral, 3 times daily before meals, First dose on Wed02/18/24 at 0729, For 1 day, Each packet contains elemental phosphorus 250 mg (8 mmol), potassium 280 mg (7.1 mEq), and sodium 160 mg (6.9 mEq). Given 02/18/2024 12:40 PM CDT 2 packets Given 02/18/2024 8:43 AM CDT 2 packets predniSONE (DELTASONE) tablet 10 mg 10 mg, oral, Daily, First dose on Wed02/18/24 at 0900, For 3 days Given 02/20/2024 9:19 AM CDT 10 mg Given 02/19/2024 8:54 AM CDT 10 mg Given 02/18/2024 7:29 AM CDT 10 mg sodium chloride 0.9% flush 0.5-20 mL 0.5-20 mL, intra-catheter, Every 8 hours scheduled, First dose on Wed02/21/24 at 0615, Flush volume based on line type and size. Given 02/26/2024 1:36 PM CDT 10 mL Given 02/26/2024 6:41 AM CDT 10 mL Given 02/25/2024 9:18 PM CDT 10 mL sodium chloride 0.9% flush 0.5-20 mL 0.5-20 mL, intra-catheter, As needed, line care, Starting on Wed02/21/24 at 0534, Flush volume based on line type and size. Flush before and after each use. sodium chloride 0.9% flush 5-10 mL 5-10 mL, intra-catheter, Every 12 hours scheduled, First dose on Wed02/25/24 at 1245, Flush volume based on line type, size, and protocol. Given 02/26/2024 9:15 AM CDT 10 mL Given 02/25/2024 8:19 PM CDT 10 mL Given 02/25/2024 12:06 PM CDT 10 mL sodium chloride 0.9% flush 5-20 mL 5-20 mL, intra-catheter, As needed, line care, with each use, Starting on Wed02/25/24 at 1205, Flush volume based on line type, size, and protocol. sodium chloride 0.9% infusion 30 mL/hr, intravenous, Continuous PRN, KVO for medication administrations, Starting on Wed02/18/24 at 1617 sodium phosphate - potassium phosphate (K-PHOS NEUTRAL) tablet 500 mg 500 mg, oral, Daily PRN, phosphorus level 1.5-1.9 mg/dL, Starting on Wed02/21/24 at 0535, Contact provider for phosphorus level less than 1.5 mg/dL. Each tablet contains elemental phosphorus 250 mg (8 mmol), potassium 45 mg (1.1 mEq), and sodium 298 mg (13 mEq)., Indications: hypophosphatemiaIndications:hypophosphatemia tacrolimus immediate-release capsule 0.5 mg 0.5 mg, oral, Every 48 hours, First dose on Wed02/19/24 at 0900, Avoid grapefruit juice, Indications: immunosuppressionIndications:immunosuppressio n Given 02/25/2024 9:44 AM CDT 0.5 mg Given 02/23/2024 8:43 AM CDT 0.5 mg Given 02/21/2024 9:41 AM CDT 0.5 mg ursodioL (ACTIGALL) capsule 600 mg 600 mg, oral, Daily with dinner, First dose on Wed02/18/24 at 1800 Given 02/25/2024 6:28 PM CDT 600 mg Given 02/24/2024 6:02 PM CDT 600 mg Given 02/23/2024 6:00 PM CDT 600 mg valGANciclovir (VALCYTE) tablet 900 mg 900 mg, oral, 2 times daily, First dose on Wed02/18/24 at 0900, For 30 days, Do not crush, chew, cut, dissolve, open or otherwise manipulate tablet/capsule., Indications: Blood Stream/Endovascular InfectionIndications:Blood Stream/Endovascular Infection Given 02/26/2024 9:14 AM CDT 900 mg Given 02/25/2024 8:12 PM CDT 900 mg Given 02/25/2024 9:44 AM CDT 900 mg vancomycin 1,000 mg/200 mL in dextrose 5% (premix) 1,000 mg 1,000 mg (rounded from 952.5 mg = 15 mg/kg ? 63.5 kg), intravenous, Administer over 60 Minutes, Every 8 hours, First dose on Wed02/18/24 at 0548, Indications: SepsisIndications:Sepsis New Bag 02/18/2024 6:00 AM CDT 1,000 mg documented in this encounter Historical Medications * This list may reflect changes made after this encounter. [place] 16.5 % solutionIndicatio ns:primary immune deficiency disorder Inject 1 Dose under the skin every 30 (thirty) days 02/09/2024 added in this encounter Active and Recently Administered Medications Times are shown in CDT. Scheduled Medication Order 02/24/2024 02/25/2024 02/26/2024 ceFAZolin (ANCEF) 2,000 mg/20 mL in sterile water (premix) 2,000 mg 2,000 mg, intravenous, at 400 mL/hr, Administer over 3 Minutes, Every 8 hours scheduled, First dose (after last modification) on 02/19/24 at 2200, Indications: Blood Stream/Endovascular Infection 0527 (Given - Provider: Lisandra Waggoner, SHAILESH)1354 (Given - Provider: Clementine Stone, RN)2121 (Given - Provider: Polly Pinzon, SHAILESH) 06 (Given - Provider: Yulisa Catalan RN)135 (Given - Provider: Kaelyn Cortez, SHAILESH)2117 (Given - Provider: Lynne Sifuentes, RN) 0638 (Given - Provider: Lynne Sifuentes, SHAILESH)1334 (Given - Provider: Kaelyn Cortez, SHAILESH) enoxaparin (LOVENOX) syringe 40 mg 40 mg, subcutaneous, Daily (for enoxaparin), First dose on Wed02/18/24 at 2100, Indications: Deep Vein Thrombosis Prevention 2122 (Given - Provider: Polly Pinzon RN) 2115 (Given - Provider: Lynne Sifuentes, SHAILESH) furosemide (LASIX) 10 mg/mL injection 20 mg (COMPLETED) 20 mg, intravenous, Once, On Wed02/25/24 at 1115, For 1 dose, For IV push: administer doses < 160 mg at a rate of 20 -40 mg/min. Doses >/= 160 mg should be administered no faster than 4 mg/min. Room temperature only 1203 (Given - Provider: Kaelyn Cortez RN) guaiFENesin ER (MUCINEX) extended release tablet 600 mg 600 mg, oral, 2 times daily, First dose on 02/19/24 at 1130, Do not crush, chew, cut, dissolve, open or otherwise manipulate tablet/capsule., Indications: Cold Symptoms 0854 (Given - Provider: Clementine Stone, SHAILESH)2121 (Given - Provider: Polly Pinzon, SHAILESH) 0944 (Given - Provider: Kaelyn Cortez, SHAILESH)2011 (Given - Provider: Lynne Sifuentes, SHAILESH) 0914 (Given - Provider: Kaelyn Cortez, RN) letermovir (PREVYMIS) tablet 480 mg 480 mg, oral, Daily, First dose on Wed02/18/24 at 0900, For 37 days, Do not crush, break, or open., I /authorizing provider attest that the patient meets the approved 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 Administer volume needed to infiltrate site., Indications: Administration of Local Anesthesia 1245 (Due) sodium chloride 0.9% flush 0.5-20 mL 0.5-20 mL, intra-catheter, Every 8 hours scheduled, First dose on Wed02/21/24 at 0615, Flush volume based on line type and size. 0433 (Given - Provider: Lisandra Waggoner RN)1354 (Given - Provider: Clementine Stone RN)2123 (Given - Provider: Polly Pinzon, SHAILESH) 0614 (Given - Provider: Yulisa Catalan RN)1352 (Given - Provider: Kaelyn Cortez, SHAILESH)2118 (Given - Provider: Lynne Sifuentes RN) 0641 (Given - Provider: Lynne Sifuentes, SHAILESH)1336 (Given - Provider: Kaelyn Cortez, SHAILESH) sodium chloride 0.9% flush 5-10 mL 5-10 mL, intra-catheter, Every 12 hours scheduled, First dose on Wed02/25/24 at 1245, Flush volume based on line type, size, and protocol. 1206 (Given - Provider: Kaelyn Cortez RN)2019 (Given - Provider: Lynne Sifuentes, SHAILESH) 0915 (Given - Provider: Kaelyn Cortez, SHAILESH) tacrolimus immediate-release capsule 0.5 mg 0.5 mg, oral, Every 48 hours, First dose on Wed02/19/24 at 0900, Avoid grapefruit juice, Indications: immunosuppression 0944 (Given - Provider: Kaelyn Cortez, SHAILESH) ursodioL (ACTIGALL) capsule 600 mg 600 mg, oral, Daily with dinner, First dose on Wed02/18/24 at 1800 1802 (Given - Provider: Clementine Stone, SHAILESH) 1828 (Given - Provider: Kaelyn Cortez, SHAILESH) valGANciclovir (VALCYTE) tablet 900 mg 900 mg, oral, 2 times daily, First dose on Wed02/18/24 at 0900, For 30 days, Do not crush, chew, cut, dissolve, open or otherwise manipulate tablet/capsule., Indications: Blood Stream/Endovascular Infection 0854 (Given - Provider: Clementine Stone RN)2121 (Given - Provider: Polly Pinzon, SHAILESH) 0944 (Given - Provider: Kaelyn Cortez, SHAILESH)2011 (Given - Provider: Lynne Sifuentes RN) 0914 (Given - Provider: Kaelyn Cortez RN) PRN Medication Order 02/24/2024 02/25/2024 02/26/2024 acetaminophen (TYLENOL) tablet 1,000 mg 1,000 mg, oral, Every 6 hours PRN, 1st line for pain, fever, Starting on Wed02/18/24 at 0548 Carrier Fluids for Secondary Infusion - 0.9% Sodium Chloride 30 mL, intravenous, As needed, For priming tubing and/or flushing, Starting on Wed02/21/24 at 0534, 0-250 ml/hr to flush line after IV infusions when no maintenance IV ordered. Infuse 30mL at the same rate as the secondary infusion. Run as primary IV, not intended for KVO. 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 of breath, Starting on Wed02/22/24 at 1728, Indications: Chronic Obstructive Pulmonary Disease with Bronchospasms magnesium sulfate 4 g/100 mL in water (premix) 4 g 4 g, intravenous, Administer over 90 Minutes, Every 4 hours PRN, magnesium replacement, Starting on Wed02/21/24 at 0535, For magnesium level of 1.2-1.5 mg/dL, Indications: hypomagnesemia magnesium sulfate 6 g in sodium chloride 0.9% 250 mL IVPB 6 g, intravenous, at 131 mL/hr, Administer over 120 Minutes, Every 4 hours PRN, magnesium replacement, Starting on Wed02/21/24 at 0535, For magnesium level less than 1.2 mg/dL and call/notify provider., Indications: hypomagnesemia ondansetron (ZOFRAN) injection 4 mg 4 mg, intravenous, Administer over 2 Minutes, Every 6 hours PRN, nausea, vomiting, Starting on Wed02/18/24 at 0548 perflutren protein-a (OPTISON) 3 mL in sodium chloride 0.9% 8 mL syringe 1-8 mL, intravenous, Once in imaging, contrast, Starting on Wed02/21/24 at 1108, For 1 dose, Intra-Procedure (CV) potassium chloride ER (KLOR-CON) extended release tablet 40 mEq 40 mEq, oral, Every 2 hours PRN, potassium replacement, Starting on Wed02/21/24 at 0535, HOLD dose and contact prescriber/provider if any of the following conditions are met: 1. Patient is undergoing any form of dialysis. 2. Serum creatinine is GREATER than 1.5 mg/dL For patients who cannot take oral, contact provider/prescriber for IV potassium. 40 mEq x 1 dose for potassium less than 2.6 mmol/L, call prescriber for additional orders; For potassium 2.6-2.9 mmol/L, give 40 mEq every 2 hours x 2 doses and obtain stat potassium level 2 hours after the 2nd dose; For potassium 3.0-3.1 mmol/L, give 40 mEq every 2 hours x 2 doses; For potassium 3.2-3.5 mmol/L, give 40 mEq x 1 dose. Tablets should not be crushed, chewed, dissolved, or otherwise manipulated. Capsules may be opened and sprinkled on a spoonful of applesauce or pudding, but the contents of the capsule should not be crushed or chewed., Indications: hypokalemia sodium chloride 0.9% flush 0.5-20 mL 0.5-20 mL, intra-catheter, As needed, line care, Starting on Wed02/21/24 at 0534, Flush volume based on line type and size. Flush before and after each use. sodium chloride 0.9% flush 5-20 mL 5-20 mL, intra-catheter, As needed, line care, with each use, Starting on Wed02/25/24 at 1205, Flush volume based on line type, size, and protocol. sodium chloride 0.9% infusion 30 mL/hr, intravenous, Continuous PRN, KVO for medication administrations, Starting on Wed02/18/24 at 1617 sodium phosphate - potassium phosphate (K-PHOS NEUTRAL) tablet 500 mg 500 mg, oral, Daily PRN, phosphorus level 1.5-1.9 mg/dL, Starting on Wed02/21/24 at 0535, Contact provider for phosphorus level less than 1.5 mg/dL. Each tablet contains elemental phosphorus 250 mg (8 mmol), potassium 45 mg (1.1 mEq), and sodium 298 mg (13 mEq)., Indications: hypophosphatemia documented in this encounter Orders Medications Ordered That John ht Not Have Been Administered Count Last Ordered Date First Ordered Date lidocaine (PF) (XYLOCAINE) 1 0 mg/mL (1 %) preservative free injection 10-20 mg 02/25/2024 sodium chloride 0.9% flush 5-20 mL 2023 ipratropium-albuteroL (DUO-N EB) 0.5-2.5 mg/3 mL nebulizer solution 3 mL 02/22/2024 Carrier Fluids for Secondary Infusion - 0.9% Sodium Chloride 02/21/2024 magnesium sulfate 4 g/100 mL in water (premix) 4 g 1 02/21/2024 magnesium sulfate 6 g in sod ium chloride 0.9% 250 mL IVPB 1 02/21/2024 perflutren protein-a (OPTISO N) 3 mL in sodium chloride 0.9% 8 mL syringe 1 02/21/2024 potassium chloride ER (KLOR- CON) extended release tablet 40 mEq 1 02/21/2024 sodium chloride 0.9% flush 0.5-20 mL 1 01/31 sodium phosphate - potassium phosphate (K-PHOS NEUTRAL) tablet 500 mg 1 02/21/2024 ceFAZolin (ANCEF) 1 gram/10 mL in sterile water (premix) 1,000 mg 1 02/19/2024 Lactated Ringer's (LR) infus ion - ADS Override Pull 1 02/18/2024 ondansetron (ZOFRAN) injection 4 mg 1 02/17 sodium chloride 0.9% infusion 1 02/18/2024 vancomycin 1,250 mg/262.5 mL in sodium chloride 0.9% (premix) 1,250 mg 1 02/18/2024 Lab Orders Without Results Count Last Ordered D ate First Ordered Date MAGNESIUM 1 02/18/2024 PHOSPHORUS 1 02/18/2024 POC BLOOD GAS AND CHEMISTRIES, VENOUS 1 POCT CREATININE - DEVICE 1 02/18/2024 Nursing Count Last Ordered Date First Orde red Date DISCONTINUE VASCULAR ACCESS (SPECIFY) 1 WEIGH PATIENT 2 02/18/2024 Consult Count Last Ordered Date First Orde red Date IP CONSULT TO VASCULAR ACCESS TEAM 1 2023 CONSULT TO TRANSPLANT - LIVER 1 02/18/2024 Admission Count Last Ordered Date First Orde red Date ADMIT TO INPATIENT 1 02/18/2024 Transfer Count Last Ordered Date First Orde red Date TRANSFER PATIENT TO NEW UNIT 1 02/20/2024 Discharge Count Last Ordered Date First Orde red Date DISCHARGE PATIENT 1 02/26/2024 CORE MEASURES Count Last Ordered Date First Ord ered Date REASON FOR NO VTE PROPHYLAXIS AT ADMISSION 2 02/21/2024 02/18/2024 documented in this encounter Additional Health Concerns Infection Onset Date Last Indicated Resolved Time COVID: Suspected 02/18/2024 02/18/2024 02/18/2024 7:27 AM CDT Rhino/Enterovirus 02/18/2024 02/19/2024 03/04/2024 3:05 AM CDT documented as of this encounter Care Teams Renovator Machine Operator Relationship Specialty Start Date End Date Beka Nick MD [address] [place] [address] PCP - General Family Practice 05/31/23 04/25/24 Amber Montesinos, SHAILESH Field Control Inspector Transplant 11/17/19 Jil Duncan MD Consulting Physician Infectious Diseases 01/10/20 Anita Gillespie MD Medical Oncologist/Tap Dancer Medical Oncology 10/07/20 Tabitha Hurley MD [address] [place] [address] Consulting Physician Rheumatology 10/22/21 Massiel Gastelum MD [address] [place] [address] Consulting Physician Otolaryngology 08/27/22 documented as of this encounter
--- OUTSIDE RECORDS SUMMARY | 2024-10-28 06:05 | XMS_ITS | Encounter Summary ---
Author Organization [facility] Address [address] [place] [address] Phone Care Team Providers Care Desktop Architect Name Role Phone Amber Montesinos RN Unavailable [phone] Jil Duncan MD Unavailable [phone] Anita Gillespie MD Unavailable [phone] Tabitha Hurley MD Unavailable [phone] Massiel Gastelum MD Unavailable [phone] Beka Nick MD Primary Care Provider [phone] Encounter Details Date Type Department Care Team (Late st Contact Info) Description 01/13/2024 Orders Only [facility] Infectious Diseases [address] [place] [address] [address] [place] [address] Lisandra Auguste, AIDEN [address] [place] [address] Social History Tobacco Use Types Packs/Day Years Used Date Smoking Tobacco: Never Smokeless Tobacco: Current Chew Alcohol Use Standard Drinks/Week Comments Yes 0 (1 standard drink = 0.6 oz pur e alcohol) occassional OASIS D0700: Social Isolation Answer Da te Recorded Frequency of experiencing loneliness or isolatio n Never 09/04/2023 [facility] Utilities Answer Date Recorded In the past [...] on file Legal Sex Male 6:28 AM 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 Gender Identity Not on file Sexual Orientation Straight 08/22/2021 9: 23 AM CDT documented as of this encounter Ordered Prescriptions Prescription Sig Dispense Quantity Refills Last Filled Start Date End Date amoxicillin-clavul anate (AUGMENTIN) 875-125 mg per tablet Take 1 tablet by mouth every 12 (twelve) hours for 7 days 14 tablet 01/13/2024 01/20/2024 documented in this encounter Plan of Treatment Scheduled Procedures Name Priority Associated Diagnoses Date/Ti me COLONOSCOPY Encounter for screening for colorectal cancer in high risk patient Family history of rectal cancer documented as of this encounter Visit Diagnoses Not on filedocumented in this encounter Care Teams Desktop Architect Relationship Specialty Start Date End Date Beka Nick MD [facility] [address] [place] [address] PCP - General Family Practice 05/31/23 04/25/24 Amber Montesinos RN Classified Advertising Supervisor Transplant 11/17/19 Jil Duncan MD Consulting Physician Infectious Diseases 01/10/20 Anita Gillespie MD Medical Oncologist/Price Checker Medical Oncology 10/07/20 Tabitha Hurley MD [address] [place], [place] [address] Consulting Physician Rheumatology 10/22/21 Massiel Gastelum MD [address] [place] [address] Consulting Physician Otolaryngology 08/27/22 documented as of this encounter
--- OUTSIDE RECORDS SUMMARY | 2024-10-28 06:05 | XMS_ITS | Encounter Summary ---
Author Organization [facility] Address [address] [place] [address] Phone Care Team Providers Care Tape Deck Installer Name Role Phone Amber Montesinos RN Unavailable [phone] Jil Duncan MD Unavailable [phone] Anita Gillespie MD Unavailable [phone] Tabitha Hurley MD Unavailable [phone] Massiel Gastelum MD Unavailable [phone] Beka Nick MD Primary Care Provider [phone] Encounter Details Date Type Department Care Team (Late st Contact Info) Description 12/10/2023 Telephone [facility] Oncology [facility] Advanced Medicine 7th [place] [address] [place] [address] Yulisa Bhakta, SHAILESH Social History Tobacco Use Types Packs/Day Years Used Date Smoking Tobacco: Never Smokeless Tobacco: Current Chew Alcohol Use Standard Drinks/Week Comments Yes 0 (1 standard drink = 0.6 oz pur e alcohol) occassional OASIS D0700: Social Isolation Answer Da te Recorded Frequency of experiencing loneliness or isolatio n Never 09/04/2023 [facility] Utilities Answer Date Recorded In [...] often do you attend chur ch or mormonism services? 1 to 4 times per year [...] slept in a snf (including now)? No 10/04/2023 Personal Safety Answer Date Recorded Have you ever been in or are you currently in a harmful physical or emotional relationship or is someone making you feel afraid or unsafe? Denies 10/03/2023 Sex and Gender Information Value Date Recorded Sex Assigned at Not on file Legal Sex Male 6:28 AM HIDE MILL MAN Gender Identity Not on file Sexual Orientation Straight 08/22/2021 9: 23 AM CDT documented as of this encounter Miscellaneous Notes * Telephone Encounter - Yulisa Bhakta RN - 12/10/2023 9:35 AM CST Called pts mother and updated on path from skin biopsy as benign mole. Discussed how pts rash is doing, mother reports it was relayed to a change is soap bc it has continued to get better since changing to a sensitive soap and now his skin looks good . No other concerns noted at this time. Reportsbeing on antibiotics per ID for persistent cough/pneumonia, no other concerns noted at this time. MILL MAN documented in this encounter Plan of Treatment Scheduled Procedures Name Priority Associated Diagnoses Date/Ti me COLONOSCOPY Encounter for screening for colorectal cancer in high risk patient Family history of rectal cancer documented as of this encounter Visit Diagnoses Not on filedocumented in this encounter Care Teams Tape Deck Installer Relationship Specialty Start Date End Date Beka Nick MD [address] [place] [address] PCP - General Family Practice 05/31/23 04/25/24 Amber Montesinos, RN Treasure[employer] Transplant 11/17/19 Jil Duncan MD Consulting Physician Infectious Diseases 01/10/20 Anita Gillespie MD Medical Oncologist/Crop Specialist Medical Oncology 10/07/20 Tabitha Hurley MD [address] [facility] [address] [place], [place] [address] Consulting Physician Rheumatology 10/22/21 Massiel Gastelum MD [address] [place] [address] Consulting Physician Otolaryngology 08/27/22 documented as of this encounter
--- OUTSIDE RECORDS SUMMARY | 2024-10-28 06:06 | XMS_ITS | Encounter Summary ---
Author Organization [facility] Address [address] [place] [address] Phone Care Team Providers Care Director Corporate Name Role Phone Amber Montesinos RN Unavailable [phone] Jil Duncan MD Unavailable [phone] Anita Gillespie MD Unavailable [phone] Tabitha Hurley MD Unavailable [phone] Massiel Gastelum MD Unavailable [phone] Beka Nick MD Primary Care Provider [phone] Encounter Details Date Type Department Care Team (Late st Contact Info) Description 10/04/2023 Documentation [facility] Oncology [address] [facility] Advanced Medicine 7th [place] [address] [place] [address] Neha Pelayo RMA Social History Tobacco Use Types Packs/Day Years Used Date Smoking Tobacco: Never Smokeless Tobacco: Current Chew Alcohol Use Standard Drinks/Week Comments Yes 0 (1 standard drink = 0.6 oz pur e alcohol) occassional OASIS D0700: Social Isolation Answer Da te Recorded Frequency of experiencing loneliness or isolatio n Never 09/04/2023 [facility] Utilities Answer Date Recorded In the past 12 months has [employer], gas, oil, or water company threatened to [...] often do you attend chur ch or advent services? 1 to 4 times per year [...] slept in a intermediate (including now)? No 10/04/2023 Personal Safety Answer Date Recorded Have you ever been in or are you currently in a harmful physical or emotional relationship or is someone making you feel afraid or unsafe? 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 [employer] & [facility] FAX COVER SHEET Date: 10/04/2023 To: Medical Records __ Department:ER Total number of pages (including cover sheet): 1 RE: Beka Nichols :1995 Notes: Records - All notes/records from 09/30 ER visit ___ ___ From: [] TEA Ghosh [] If you do not receive all of the pages, or you have received this fax in error, please contact sender at [phone] send return fax to [phone]. Thank you. CONFIDENTIALITY NOTE: The materials enclosed with this facsimile transmission are private and confidential and are the property of the sender. If you are not the intended recipient, be advised that any unauthorized use, disclosure, copying, distribution, or the taking of any action in reliance on the contents of this telecopied information is strictly prohibited. If you have received this facsimile transmission in error, please immediately notify the sender via telephone to arrange for return of the forwarded documents to us. Thank you. This fax machine is [place] [facility] 14[place]. PORTER documented in this encounter Plan of Treatment Scheduled Procedures Name Priority Associated Diagnoses Date/Ti me COLONOSCOPY Encounter for screening for colorectal cancer in high risk patient Family history of rectal cancer documented as of this encounter Visit Diagnoses Not on filedocumented in this encounter Additional Health Concerns Infection Onset Date Last Indicated Resolved Time Rhino/Enterovirus 10/03/2023 10/03/2023 10/17/2023 3:05 AM FOOD PORTER documented as of this encounter Care Teams Director Corporate Relationship Specialty Start Date End Date Beka Nick MD [address] [place] [address] PCP - General Family Practice 05/31/23 04/25/24 Amber Montesinos, SHAILESH Numerical Analysis Group Manager Transplant 11/17/19 Jil Duncan MD Consulting Physician Infectious Diseases 01/10/20 Anita Gillespie MD Medical Oncologist/Mechanic Helper Medical Oncology 10/07/20 Tabitha Hurley MD [address] [place] [address] Consulting Physician Rheumatology 10/22/21 Massiel Gastelum MD [address] [place] [address] Consulting Physician Otolaryngology 08/27/22 documented as of this encounter
--- OUTSIDE RECORDS SUMMARY | 2024-10-28 06:06 | XMS_ITS | Encounter Summary ---
Author Organization [facility] Healthcare Address [address] [place] [address] Care Team Providers Care Dismantler Name Role Phone Amber Montesinos RN Unavailable [phone] Jil Duncan MD Unavailable [phone] Anita Gillespie MD Unavailable [phone] Tabitha Hurley MD Unavailable [phone] Massiel Gastelum MD Unavailable [phone] Beka Nick MD Primary Care Provider [phone] Encounter Details Date Type Department Care Team (Late st Contact Info) Description 10/21/[address] [facility] Health Information Management [address] [place] [address] Scanning, Provider Social History Tobacco Use Types Packs/Day Years Used Date Smoking Tobacco: Never Smokeless Tobacco: Current Chew Alcohol Use Standard Drinks/Week Comments Yes 0 (1 standard drink = 0.6 oz pur e alcohol) occassional OASIS D0700: Social Isolation Answer Da te Recorded Frequency of experiencing loneliness or isolatio n Never 09/04/2023 [facility] Utilities Answer Date Recorded In the past [...] How often do you attend chur or congregational services? 1 to 4 times [...] on file Legal Sex Male 6:28 AM QUEEN'S COUNSEL Gender Identity Not on file Sexual Orientation Straight 08/22/2021 9: 23 AM CDT documented as of this encounter Plan of Treatment Scheduled Procedures Name Priority Associated Diagnoses Date/Ti me COLONOSCOPY Encounter for screening for colorectal cancer in high risk patient Family history of rectal cancer documented as of this encounter Procedures Procedure Name Priority Date/Time Associated Diagnosis Comments SCAN - LABS 10/21/2023 11:19 AM QUEEN'S COUNSEL documented in this encounter Results * SCAN - LABS (10/21/2023 11:19 AM QUEEN'S COUNSEL) us Provider Scanning Final Result documented in this encounter Visit Diagnoses Not on filedocumented in this encounter Care Teams Dismantler Relationship Specialty Start Date End Date Beka Nick MD [address] [place] [address] PCP - General Family Practice 05/31/23 04/25/24 Amber Montesinos, SHAILESH Circuit Designer Transplant 11/17/19 Jil Duncan MD Consulting Physician Infectious Diseases 01/10/20 Anita Gillespie MD Medical Oncologist/Medical Record Retrieval Specialist Medical Oncology 10/07/20 Tabitha Hurley MD [address] [place] [address] Consulting Physician Rheumatology 10/22/21 Massiel Gastelum MD [address] [place] [address] Consulting Physician Otolaryngology 08/27/22 documented as of this encounter
--- OUTSIDE RECORDS SUMMARY | 2024-10-28 06:06 | XMS_ITS | Encounter Summary ---
Author Organization [facility] Healthcare Address [address] [place] [address] Care Team Providers Care Clinical Documentation Manager Name Role Phone Amber Montesinos RN Unavailable [phone] Jil Duncan MD Unavailable [phone] Anita Gillespie MD Unavailable [phone] Tabitha Hurley MD Unavailable [phone] Massiel Gastelum MD Unavailable [phone] Beka Nick MD Primary Care Provider [phone] Reason for Visit * Reason Onset Date Comments opat 09/21/2023 Encounter Details Date Type Department Care Team (Late st Contact Info) Description 09/21/2023 Documentation [facility] Isolation Infection [address] [place] [address] La Baxter, AFTER SCHOOL COORDINATOR [address] [place] [address] opat Social History Tobacco Use Types Packs/Day Years Used Date Smoking Tobacco: Never Smokeless Tobacco: Current Chew Alcohol Use Standard Drinks/Week Comments Yes 0 (1 standard drink = 0.6 oz pur e alcohol) occassional OASIS D0700: Social Isolation Answer Da te Recorded Frequency of experiencing loneliness or isolatio n Never 09/04/2023 AUDIT-C Answer Date Recorded Q1: How often do you have a drink containing alc ohol? Monthly or less 09/01/2023 Q2: How many drinks containi ng alcohol do you have on a typical day when you are drinking? 5 or 6 09/01/2023 Q3: How often do you have si x or more drinks on one occasion? Monthly 09/01/2023 Sex and Gender Information Value Date Recorded Sex Assigned at Not on file Legal Sex Male 6:28 AM FOOD SERVICE AGENT Gender Identity Not on file Sexual Orientation Straight 08/22/2021 9: 23 AM CDT documented as of this encounter Progress Notes * La Baxter NP - 09/21/2023 1:38 PM CST Labs (CMV) from 09/18/23 reviewed No changes to current abx - [facility] thru 09/07 [employer] Dx: CMV ID f/u: 09/27 Date WBC PLT Cr ALT AST ALP K+ CMV 09/03 252 (2.40) 09/04 8.2 208 0.64 3.8 09/07 8.8 231 0.82 43 77 151 4.2 09/10 7.8 296 1.10 98 121 164 undetected SERVICE AGENT documented in this encounter Plan of Treatment Scheduled Procedures Name Priority Associated Diagnoses Date/Ti me COLONOSCOPY Encounter for screening for colorectal cancer in high risk patient Family history of rectal cancer documented as of this encounter Visit Diagnoses Not on filedocumented in this encounter Care Teams Clinical Documentation Manager Relationship Specialty Start Date End Date Beka Nick MD [address] [place] [address] PCP - General Family Practice 05/31/23 04/25/24 Amber Montesinos RN Scouring Machine Tender Transplant 11/17/19 Jil Duncan MD Consulting Physician Infectious Diseases 01/10/20 Anita Gillespie MD Medical Oncologist/Senior Architectural Designer Medical Oncology 10/07/20 Tabitha Hurley MD [address] [place], [place] [address] Consulting Physician Rheumatology 10/22/21 Massiel Gastelum MD [address] [place] [address] Consulting Physician Otolaryngology 08/27/22 documented as of this encounter
--- OUTSIDE RECORDS SUMMARY | 2024-10-28 06:06 | XMS_ITS | Encounter Summary ---
Author Organization [facility] Address [address] [place] [address] Phone Care Team Providers Care Vendor Management Specialist Name Role Phone Amber Montesinos RN Unavailable [phone] Jil Duncan MD Unavailable [phone] Anita Gillespie MD Unavailable [phone] Tabitha Hurley MD Unavailable [phone] Massiel Gastelum MD Unavailable [phone] Beka Nick MD Primary Care Provider [phone] Encounter Details Date Type Department Care Team (Late st Contact Info) Description 11/02/2023 Orders Only [facility] Infectious Diseases [address] [place] [address] Ny Griffin 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HCC) (Primary Dx) Social History Tobacco Use Types Packs/Day Years Used Date Smoking Tobacco: Never Smokeless Tobacco: Current Chew Alcohol Use Standard Drinks/Week Comments Yes 0 (1 standard drink = 0.6 oz pur e alcohol) occassional OASIS D0700: Social Isolation Answer Da te Recorded Frequency of experiencing loneliness or isolatio n Never 09/04/2023 [facility] Utilities Answer Date Recorded In the past 12 months has [employer], gas, oil, or water company threatened to [...] any clubs o r organizations such as gnosticist groups, unions, fraternal or athletic groups, or [...] on file Legal Sex Male 6:28 AM INTAKE ASSESSOR Gender Identity Not on file Sexual Orientation Straight 08/22/2021 9: 23 AM CDT documented as of this encounter Plan of Treatment Scheduled Procedures Name Priority Associated Diagnoses Date/Ti me COLONOSCOPY Encounter for screening for colorectal cancer in high risk patient Family history of rectal cancer documented as of this encounter Visit Diagnoses Diagnosis 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 documented in this encounter Care Teams Vendor Management Specialist Relationship Specialty Start Date End Date eBka Nick MD [address] [place] [address] PCP - General Family Practice 05/31/23 04/25/24 Amber Montesinos RN Stone Setter Transplant 11/17/19 Jil Duncan MD Consulting Physician Infectious Diseases 01/10/20 Anita Gillespie MD Medical Oncologist/Therapeutic Program Worker Medical Oncology 10/07/20 Tabitha Hurley MD [address] [place] [address] Consulting Physician Rheumatology 10/22/21 Massiel Gastelum MD [address] [place] [address] Consulting Physician Otolaryngology 08/27/22 documented as of this encounter
--- OUTSIDE RECORDS SUMMARY | 2024-10-28 06:06 | XMS_ITS | Encounter Summary ---
Author Organization [facility] Healthcare Address [address] [place] [address] Care Team Providers Care Geodetic Engineer Name Role Phone Amber Montesinos RN Unavailable [phone] Jil Duncan MD Unavailable [phone] nAita Gillespie MD Unavailable [phone] Tabitha Hurley MD Unavailable [phone] Massiel Gastelum MD Unavailable [phone] Beka Nick MD Primary Care Provider [phone] Encounter Details Date Type Department Care Team (Late st Contact Info) Description 09/22/2023 Orders Only [facility] Health Information Management [address] [place] [address] Scanning, Provider Social History Tobacco Use Types [...] on file Legal Sex Male 6:28 AM 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 HELPER Gender Identity Not on file Sexual Orientation Straight 08/22/2021 9: 23 AM CDT documented as of this encounter Plan of Treatment Scheduled Procedures Name Priority Associated Diagnoses Date/Ti me COLONOSCOPY Encounter for screening for colorectal cancer in high risk patient Family history of rectal cancer documented as of this encounter Procedures Procedure Name Priority Date/Time Associated Diagnosis Comments SCAN - LABS 09/22/2023 4:52 PM DRY CLEANER HELPER documented in this encounter Results * SCAN - LABS (09/22/2023 4:52 PM DRY CLEANER HELPER) us Provider Scanning Final Result documented in this encounter Visit Diagnoses Not on filedocumented in this encounter Care Teams Geodetic Engineer Relationship Specialty Start Date End Date Beka Nick MD [address] [place] [address] PCP - General Family Practice 05/31/23 04/25/24 Amber Montesinos, SHAILESH Supervisor Travel Information Center Transplant 11/17/19 Jil Duncan MD Consulting Physician Infectious Diseases 01/10/20 Anita Gillespie MD Medical Oncologist/Ramp And Cargo Supervisor Medical Oncology 10/07/20 Tabitha Hurley MD [address] [place] [address] Consulting Physician Rheumatology 10/22/21 Massiel Gastelum MD [address] [place] [address] Consulting Physician Otolaryngology 08/27/22 documented as of this encounter
--- OUTSIDE RECORDS SUMMARY | 2024-10-28 06:06 | XMS_ITS | Encounter Summary ---
Author Organization [facility] Healthcare Address [address] [place] [address] Care Team Providers Care Collections Curator Name Role Phone Amber Montesinos RN Unavailable [phone] Jil Duncan MD Unavailable [phone] Anita Gillespie MD Unavailable [phone] Tabitha Hurley MD Unavailable [phone] Massiel Gastelum MD Unavailable [phone] Beka Nick MD Primary Care Provider [phone] Encounter Details Date Type Department Care Team (Late st Contact Info) Description 10/02/2023 Orders Only [facility] Health Information Management [address] [place] [address] Scanning, Provider Social History Tobacco Use Types Packs/Day Years Used Date Smoking Tobacco: Never Smokeless Tobacco: Current Chew Alcohol Use Standard Drinks/Week Comments Yes 0 (1 standard drink = 0.6 oz pur e alcohol) occassional OASIS D0700: Social Isolation Answer Da te Recorded Frequency of experiencing loneliness or isolatio n Never 09/04/2023 [facility] Utilities Answer Date Recorded In the past [...] How often do you attend chur or pentecostalism services? 1 to 4 times [...] on file Legal Sex Male 6:28 AM COMMUNITY ORGANIZATION DIRECTOR Gender Identity Not on file Sexual Orientation Straight 08/22/2021 9: 23 AM CDT documented as of this encounter Plan of Treatment Scheduled Procedures Name Priority Associated Diagnoses Date/Ti me COLONOSCOPY Encounter for screening for colorectal cancer in high risk patient Family history of rectal cancer documented as of this encounter Procedures Procedure Name Priority Date/Time Associated Diagnosis Comments SCAN - LABS 10/02/2023 11:59 AM COMMUNITY ORGANIZATION DIRECTOR documented in this encounter Results * SCAN - LABS (10/02/2023 11:59 AM COMMUNITY ORGANIZATION DIRECTOR) us Provider Scanning Final Result documented in this encounter Visit Diagnoses Not on filedocumented in this encounter Additional Health Concerns Infection Onset Date Last Indicated Resolved Time COVID: Suspected 10/03/2023 10/03/2023 10/03/2023 9:58 AM COMMUNITY ORGANIZATION DIRECTOR Rhino/Enterovirus 10/03/2023 10/03/2023 10/17/2023 3:05 AM COMMUNITY ORGANIZATION DIRECTOR documented as of this encounter Care Teams Collections Curator Relationship Specialty Start Date End Date Beka Nick MD [address] [place] [address] PCP - General Family Practice 05/31/23 04/25/24 Amber Montesinos, SHAILESH Manual Qa Tester Transplant 11/17/19 Jil Duncan MD Consulting Physician Infectious Diseases 01/10/20 Anita Gillespie MD Medical Oncologist/Refrigerating Machine Operator Medical Oncology 10/07/20 Tabitha Hurley MD [address] [facility] [address] [place], [place] [address] Consulting Physician Rheumatology 10/22/21 Massiel Gastelum MD [address] [place], [place] [address] Consulting Physician Otolaryngology 08/27/22 documented as of this encounter
--- OUTSIDE RECORDS SUMMARY | 2024-10-28 06:06 | XMS_ITS | Encounter Summary ---
Author Organization [facility] Address [address] [place] [address] Phone Care Team Providers Care Singing Teacher Name Role Phone Amber Montesinos RN Unavailable [phone] Jil Duncan MD Unavailable [phone] Anita Gillespie MD Unavailable [phone] Tabitha Hurley MD Unavailable [phone] Massiel Gastelum MD Unavailable [phone] Beka Nick MD Primary Care Provider [phone] Encounter Details Date Type Department Care Team (Late st Contact Info) Description 10/15/2023 Documentation [facility] [address] [facility] Advanced Medicine 7th [place] [address] [place] [id number] Tae Gleason CMA Social History Tobacco Use Types Packs/Day Years Used Date Smoking Tobacco: Never Smokeless Tobacco: Current Chew Alcohol Use Standard Drinks/Week Comments Yes 0 (1 standard drink = 0.6 oz pur e alcohol) occassional OASIS D0700: Social Isolation Answer Da te Recorded Frequency of experiencing loneliness or isolatio n Never 09/04/2023 [facility] Utilities Answer Date Recorded In the [...] on file Legal Sex Male 6:28 AM MATERIAL REQUIREMENTS WORKER Gender Identity Not on file Sexual Orientation Straight 08/22/2021 9: 23 AM CDT documented as of this encounter Progress Notes * Tae Gleason CMA - 10/15/2023 4:08 PM CST Patient has been rescheduled to 11/03 labs at 7:00 and ov at 7:45 ===View-only below this line=== ----- Message ----- From: Yulisa Bhakta RN Sent: 10/15/2023 3:57 PM MATERIAL REQUIREMENTS WORKER To: [facility] Lymphoma Medical Assistants Can to reschedule pt's lab/Dr. Gillespie appointments from 01/04 to be on 11/03 (labs at 7, visit at 7:45). Thanks! RIAL REQUIREMENTS WORKER documented in this encounter Plan of Treatment Scheduled Procedures Name Priority Associated Diagnoses Date/Ti me COLONOSCOPY Encounter for screening for colorectal cancer in high risk patient Family history of rectal cancer documented as of this encounter Visit Diagnoses Not on filedocumented in this encounter Additional Health Concerns Infection Onset Date Last Indicated Resolved Time Rhino/Enterovirus 10/03/2023 10/03/2023 10/17/2023 3:05 AM MATERIAL REQUIREMENTS WORKER documented as of this encounter Care Teams Singing Teacher Relationship Specialty Start Date End Date Beka Nick MD [address] [place] [address] PCP - General Family Practice 05/31/23 04/25/24 Amber Montesinos, SHAILESH Tilting Saw Operator Transplant 11/17/19 Jil Duncan MD Consulting Physician Infectious Diseases 01/10/20 Anita Gillespie MD Medical Oncologist/Cook Fishing Vessel Medical Oncology 10/07/20 Tabitha Hurley MD [address] [place] [address] Consulting Physician Rheumatology 10/22/21 Massiel Gastelum MD [address] [place] [address] Consulting Physician Otolaryngology 08/27/22 documented as of this encounter
--- OUTSIDE RECORDS SUMMARY | 2024-10-28 06:06 | XMS_ITS | Encounter Summary ---
Author Organization [facility] Address [address] [place] [address] Phone Care Team Providers Care Filing And Polishing Supervisor Name Role Phone Amber Montesinos RN Unavailable [phone] Jil Duncan MD Unavailable [phone] Anita Gillespie MD Unavailable [phone] Tabitha Hurley MD Unavailable [phone] Massiel Gastelum MD Unavailable [phone] Beka Nick MD Primary Care Provider [phone] Encounter Details Date Type Department Care Team (Late st Contact Info) Description 10/01/2023 Telephone [facility] Advanced Medicine 7th [place] [address] [place] [address] Yulisa Bhakta, SHAIELSH Social History Tobacco Use Types Packs/Day Years [...] on file Legal Sex Male 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 Spoke with [employer] [facility] several times today, requesting PA forms for IVIG that had reportedly been sent earlier this week. Received forms this afternoon. Preferred product for insurance is Cutaquig (pt previously was on HyQvia). Unable to be approved for [employer]iva due to not previously trying Cutaquig. PA forms filled out for Cutaquig. Awaiting response. CART ATTENDANT documented in this encounter Plan of Treatment Scheduled Procedures Name Priority Associated Diagnoses Date/Ti me COLONOSCOPY Encounter for screening for colorectal cancer in high risk patient Family history of rectal cancer documented as of this encounter Visit Diagnoses Not on filedocumented in this encounter Care Teams Filing And Polishing Supervisor Relationship Specialty Start Date End Date eBka Nick MD [address] [facility] [address] [place] [address] PCP - General Family Practice 05/31/23 04/25/24 Amber Montesinos, SHAILESH Forensic Investigator Transplant 11/17/19 Jil Duncan MD Consulting Physician Infectious Diseases 01/10/20 Anita Gillespie MD Medical Oncologist/Lead Maintenance Technician Medical Oncology 10/07/20 Tabitha Hurley MD [address] [place], [place] [address] Consulting Physician Rheumatology 10/22/21 Massiel Gastelum MD [address] [place], [place] [address] Consulting Physician Otolaryngology 08/27/22 documented as of this encounter
--- OUTSIDE RECORDS SUMMARY | 2024-10-28 06:06 | XMS_ITS | Encounter Summary ---
Author Organization [facility] Address [address] [place] [address] Care Team Providers Care Gill Box Fixer Name Role Phone Amber Montesinos RN Unavailable [phone] Jil Duncan MD Unavailable [phone] Anita Gillespie MD Unavailable [phone] Tabitha Hurley MD Unavailable [phone] Massiel Gastelum MD Unavailable [phone] Beka Nick MD Primary Care Provider [phone] Encounter Details Date Type Department Care Team (Late st Contact Info) Description 10/26/2023 Orders Only [facility] Health Information Management [address] [place] [address] Scanning, Provider Social History Tobacco Use Types [...] How often do you attend chur or christian services? 1 to 4 times [...] on file Legal Sex Male 6:28 AM FLASHER ADJUSTER Gender Identity Not on file Sexual Orientation Straight 08/22/2021 9: 23 AM CDT documented as of this encounter Plan of Treatment Scheduled Procedures Name Priority Associated Diagnoses Date/Ti me COLONOSCOPY Encounter for screening for colorectal cancer in high risk patient Family history of rectal cancer documented as of this encounter Procedures Procedure Name Priority Date/Time Associated Diagnosis Comments SCAN - LABS 10/26/2023 10:06 PM FLASHER ADJUSTER documented in this encounter Results * SCAN - LABS (10/26/2023 10:06 PM FLASHER ADJUSTER) us Provider Scanning Final Result documented in this encounter Visit Diagnoses Not on filedocumented in this encounter Care Teams Gill Box Fixer Relationship Specialty Start Date End Date Beka Nick MD [address] [place] [address] PCP - General Family Practice 05/31/23 04/25/24 Amber Montesinos, SHAILESH Channel Turner Transplant 11/17/19 Jil Duncan MD Consulting Physician Infectious Diseases 01/10/20 Anita Gillespie MD Medical Oncologist/Ncqa Specialist Medical Oncology 10/07/20 Tabitha Hurley MD [address] [place] [address] Consulting Physician Rheumatology 10/22/21 Massiel Gastelum MD [address] [place] [address] Consulting Physician Otolaryngology 08/27/22 documented as of this encounter
--- OUTSIDE RECORDS SUMMARY | 2024-10-28 06:06 | XMS_ITS | Encounter Summary ---
Author Organization [facility] Address [address] [place] [address] Phone Care Team Providers Care Crayon Sawyer Name Role Phone Amber Montesinos RN Unavailable [phone] Jil Duncan MD Unavailable [phone] Anita Gillespie MD Unavailable [phone] Tabitha Hurley MD Unavailable [phone] Massiel Gastelum MD Unavailable [phone] Adi Nick MD Primary Care Provider [phone] Encounter Details Date Type Department Care Team (Late st Contact Info) Description 10/12/2023 7:30 AM HEAT ENGINEERING TEACHER Ancillary Procedure [facility] Vascular Lab IP [address] [facility] [address] [place] [address] Social History Tobacco Use Types Packs/Day Years Used Date Smoking Tobacco: Never Smokeless Tobacco: Current Chew Alcohol Use Standard Drinks/Week Comments Yes 0 (1 standard drink = 0.6 oz pur e alcohol) occassional OASIS D0700: Social Isolation Answer Da te Recorded Frequency of experiencing loneliness or isolatio n Never 09/04/[address] [facility] Utilities Answer Date Recorded In the [...] on file Legal Sex Male 6:28 AM HEAT ENGINEERING TEACHER Gender Identity Not on file Sexual [...] Diagnosis Comments US VEIN DUPLEX LOWER EXTREMITY LEFT LIMITED IP Routine 10/12/2023 9:05 AM HEAT ENGINEERING TEACHER documented in this encounter Results * US VEIN DUPLEX LOWER EXTREMITY LEFT LIMITED, UNILATERAL (10/12/2023 9:05 AM HEAT ENGINEERING TEACHER) Anatomical Region Laterality Modality Vascular Left Ultrasound 10/12/2023 8:36 AM HEAT ENGINEERING TEACHER Narrative 10/12/2023 12:12 PM HEAT ENGINEERING TEACHER [facility] - Department of Vascular Surgery, Vascular Laboratory [address] [place] [address] Lower Extremity Venous Ultrasound Report Patient Name: ADI NICHOLS Ben : 1995 (28y 8m) Study Date: 10/12/2023 8:36:20 AM Gender: M Tech: Location: [id number] Ref Provider: SILVERIO WEINBERG ?Quality: Adequate Order Provider: SILVERIO WEINBERG PROCEDURES: Vascular Report: Venous Duplex imaging was performed in the left lower extremity. The common femoral, femoral, popliteal, posterior tibial, peroneal veins were evaluated for patency, spontaneity and phasicity with Doppler, compression and augmentation maneuvers. Great saphenous vein proximal at the junction was evaluated with compression maneuvers. INDICATIONS: Localized edema, and Swelling lower extremity, left. FINDINGS: Performing Director School Of Nursing: Leeanna Muniz RVT. Left: Venous Doppler signals in the left lower extremity are within normal limits for spontaneity and phasicity and respond normally to augmentation maneuvers. No evidence of deep vein thrombus by duplex, proximal to the calf. Comments: Contralateral common femoral vein is imaged for comparison and is patent. Unilateral (limited study) performed per M.D. order. CONCLUSIONS: 1. There is no evidence of acute deep vein thrombosis on the left. Noninvasive venous studies cannot rule out isolated calf vein obstruction. HISTORY: Cancer, PE. PREVIOUS STUDIES: No previous studies for comparison. DISCLAIMER: The study images and the final [...] that is provided above. Electronically Signed By: Jabari Mota MD FACS 2023-10-12 12:11:57 HEAT ENGINEERING TEACHER Procedure Note Jabari Mota MD - 10/12/2023 [facility] - Department of Vascular Surgery,Vascular Laboratory [address] [place] [address] Lower Extremity Venous Ultrasound Report Patient Name: ADI NICHOLS J : 1995 (28y 8m) Study Date: 10/12/2023 8:36:20 AM Gender: M Tech: Location: [id number] Ref Provider: SILVERIO WEINBERG Quality: Adequate Order Provider: SILVREIO WEINBERG PROCEDURES: Vascular Report: Venous Duplex imaging was performed in the left lower extremity. Thecommon femoral, femoral, popliteal, posterior tibial, peroneal veins were evaluated forpatency, spontaneity and phasicity with Doppler, compression and augmentationmaneuvers. Great saphenous vein proximal at the junction was evaluated with compressionmaneuvers. INDICATIONS: Localized edema, and Swelling lower extremity, left. FINDINGS: Performing Director School Of Nursing: Leeanna Muniz RVT. Left: Venous Doppler signals in the left lower extremity are within normallimits for spontaneity and phasicity and respond normally to augmentation maneuvers.No evidence of deep vein thrombus by duplex, proximal to the calf. Comments: Contralateral common femoral vein is imaged for comparison and is patent.Unilateral (limited study) performed per M.D. order. CONCLUSIONS: 1. There is no evidence of acute deep vein thrombosis on the left.Noninvasive venous studies cannot rule out isolated calf vein obstruction. HISTORY: Cancer, PE. PREVIOUS STUDIES: No previous studies for comparison. DISCLAIMER: The study images and the final report will be retained in the patientchart by the Vascular Laboratory for the legally required time period. This chartconstitutes the legal record of any testing performed. ATTESTATION: I have reviewed and interpreted the pertinent images and measurements ofthis study. I attest to the conclusions in the final report that is provided above. Electronically Signed By: Jabari Mota MD [facility] 2023-10-12 12:11:57 HEAT ENGINEERING TEACHER us Silverio Weinberg MD IM US PROCEDURES Final Result documented in this encounter Visit Diagnoses Not on filedocumented in this encounter Additional Health Concerns Infection Onset Date Last Indicated Resolved Time Rhino/Enterovirus 10/03/2023 10/03/2023 10/17/2023 3:05 AM HEAT ENGINEERING TEACHER documented as of this encounter Care Teams Crayon Sawyer Relationship Specialty Start Date End Date Adi Nick MD [address] [place] [address] PCP - General Family Practice 05/31/23 04/25/24 Amber Montesinos, SHAILESH Director Of Front Office Transplant 11/17/19 Jil Duncan MD Consulting Physician Infectious Diseases 01/10/20 Anita Gillespie MD Medical Oncologist/Oil Lease Broker Medical Oncology 10/07/20 Tabitha Hurley MD [address] [place] [address] Consulting Physician Rheumatology 10/22/21 Massiel Gastelum MD [address] [place] [address] Consulting Physician Otolaryngology 08/27/22 documented as of this encounter
--- OUTSIDE RECORDS SUMMARY | 2024-10-28 06:06 | XMS_ITS | Encounter Summary ---
Author Organization [facility] Address [address] [place] [address] Phone Care Team Providers Care Ice Handler Name Role Phone Ambre Montesinos RN Unavailable [phone] Jil Duncan MD Unavailable [phone] Anita Gillespie MD Unavailable [phone] Tabitha Hurley MD Unavailable [phone] Massiel Gastelum MD Unavailable [phone] Beka Nick MD Primary Care Provider [phone] Encounter Details Date Type Department Care Team (Late st Contact Info) Description 09/28/2023 Orders Only [facility] Infectious Diseases [address] [place] [address] [address] [place] [address] Lisandra Auguste, AIDEN [address] [place] [address] [address] [place] [address] Social History Tobacco Use Types Packs/Day Years [...] more drinks on one occasion? Monthly 09/01/2023 Personal Safety Answer Date Recorded Have you ever been in or are you currently in a harmful physical or emotional relationship or is someone making you feel afraid or unsafe? Denies 10/03/2023 Sex and Gender Information Value Date Recorded Sex Assigned at Not on file Legal Sex Male 6:28 AM VENEER STOCK GRADER Gender Identity Not on file Sexual Orientation Straight 08/22/2021 9: 23 AM CDT documented as of this encounter Ordered Prescriptions Prescription Sig Dispense Quantity Refills Last Filled Start Date End Date letermovir (PREVYMIS) 480 mg tabletIndications: Prophylaxis, Medical Take 1 tablet (480 mg total) by mouth daily 30 tablet 5 09/28/2023 03/26/2024 documented in this encounter Plan of Treatment Scheduled Procedures Name Priority Associated Diagnoses Date/Ti me COLONOSCOPY Encounter for screening for colorectal cancer in high risk patient Family history of rectal cancer documented as of this encounter Visit Diagnoses Not on filedocumented in this encounter Discontinued Medications Medication Sig Discontinue Reason Start Date End Da te letermovir (PREVYMIS) 480 mg tablet Take 1 tablet (480 mg total) by mouth daily Reorder 09/21/2023 09/28/2023 documented as of this encounter Care Teams Ice Handler Relationship Specialty Start Date End Date Beka Nick MD [address] [place] [address] PCP - General Family Practice 05/31/23 04/25/24 Amber Montesinos RN Appointment Scheduler Transplant 11/17/19 Jil Duncan MD Consulting Physician Infectious Diseases 01/10/20 Anita Gillespie MD Medical Oncologist/Textile Broker Medical Oncology 10/07/20 Tabitha Hurley MD [address] [facility] [address] [place] [address] Consulting Physician Rheumatology 10/22/21 Massiel Gastelum MD [address] [place] [address] Consulting Physician Otolaryngology 08/27/22 documented as of this encounter
--- OUTSIDE RECORDS SUMMARY | 2024-10-28 06:06 | XMS_ITS | Encounter Summary ---
Author Organization [facility] Healthcare Address [address] [place] [address] Care Team Providers Care Carton Marker Machine Name Role Phone Amber Montesinos RN Unavailable [phone] Jil Duncan MD Unavailable [phone] Anita Gillespie MD Unavailable [phone] Tabitha Hurley MD Unavailable [phone] Massiel Gastelum MD Unavailable Beka Nick MD Primary Care Provider [phone] Encounter Details Date Type Department Care Team (Late st Contact Info) Description 09/22/2023 Documentation [facility] Transplant Liver [address] [facility] [address] [phone] [place] [address] Amber Montesinos, RN Social History Tobacco Use [...] on file Legal Sex Male 6:28 AM TOOTH CUTTER CLUTCH Gender Identity Not on file Sexual Orientation Straight 08/22/2021 9: 23 AM CDT documented as of this encounter Ordered Prescriptions Prescription Sig Dispense Quantity Refills Last Filled Start Date End Date spironolactone (ALDACTONE) 50 mg tablet Take 1 tablet (50 mg total) by mouth daily 30 tablet 1 09/22/2023 3 furosemide (LASIX) 20 mg tablet Take 1 tablet (20 mg total) by mouth daily 30 tablet 1 09/22/2023 3 tacrolimus 0.5 mg immediate-release capsuleIndications :Prevention of Liver Transplant Rejection Take 1 capsule (0.5 mg total) by mouth every other day 15 capsule 09/22/2023 3 documented in this encounter Progress Notes * Amber Vargas RN - 09/22/2023 2:49 PM CST Sent [employer] message to pt to review recent labs. Labs reviewed with mom via One[employer]See. Confirms accurate tacrolimus trough. Reviewed with her that level is likely due to his letermovir. No other changes at home per mom report. We also discussed his diuretics which need refilled. Mom stating that pt swelling has currently resolved and he would be open to trying to reduce his dose to see if fluid reaccumulates. Reviewed with Dr. Gresham. Plan to decrease tacrolimus to 0.5mg every other day, reduce lasix to 20mg daily, and reduce aldactone to 50mg daily. Pt should repeat labs in 7-10 days. Reviewed with mom via [employer]See. She would like scripts sent to [facility]. H CUTTER CLUTCH documented in this encounter Plan of Treatment [...] 1 capsule (0.5 mg total) by mouth daily Reorder 09/03/2023 09/22/2023 furosemide (LASIX) 40 mg tablet Take 1 tablet (40 mg total) by mouth daily Reorder 09/04/2023 09/22/2023 spironolactone (ALDACTONE) 100 mg tablet Take 1 tablet (100 mg total) by mouth daily Reorder 09/04/2023 09/22/2023 documented as of this encounter Care Teams Carton Marker Machine Relationship Specialty Start Date End Date Beka Nick MD [address] [place] [address] PCP - General Family Practice 05/31/23 04/25/24 Amber Montesinos, SHAILESH Export Packer Transplant 11/17/19 Jil Duncan MD Consulting Physician Infectious Diseases 01/10/20 Anita Gillespie MD Medical Oncologist/Mail Distribution Scheme Examiner Medical Oncology 10/07/20 Tabitha Hurley MD [address] [place] [address] Consulting Physician Rheumatology 10/22/21 Massiel Gastelum MD [address] [place] [address] Consulting Physician Otolaryngology 08/27/22 documented as of this encounter
--- OUTSIDE RECORDS SUMMARY | 2024-10-28 06:06 | XMS_ITS | Encounter Summary ---
Author Organization [facility] Healthcare Address [address] [place] [address] Care Team Providers Care Milling Machinist Name Role Phone Amber Montesinos RN Unavailable [phone] Jil Duncan MD Unavailable [phone] Anita Gillespie MD Unavailable [phone] Tabitha Hurley MD Unavailable [phone] Massiel Gastelum MD Unavailable [phone] Beka Nick MD Primary Care Provider [phone] Encounter Details Date Type Department Care Team (Late st Contact Info) Description 10/27/2023 Orders Only [facility] Health Information Management [address] [place] [address] Scanning, Provider Social History Tobacco Use Types Packs/Day Years Used Date Smoking Tobacco: Never Smokeless Tobacco: Current Chew Alcohol Use Standard Drinks/Week Comments Yes 0 (1 standard drink = 0.6 oz pur e alcohol) occassional OASIS D0700: Social Isolation Answer Da te Recorded Frequency of experiencing loneliness or isolatio n Never 09/04/[address] [facility] Utilities Answer Date Recorded In the [...] How often do you attend chur or latter-day services? 1 to 4 times per year [...] on file Legal Sex Male 6:28 AM PARTS CASTING 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 Gender Identity Not on file Sexual Orientation Straight 08/22/2021 9: 23 AM CDT documented as of this encounter Plan of Treatment Scheduled Procedures Name Priority Associated Diagnoses Date/Ti me COLONOSCOPY Encounter for screening for colorectal cancer in high risk patient Family history of rectal cancer documented as of this encounter Procedures Procedure Name Priority Date/Time Associated Diagnosis Comments SCAN - LABS 10/27/2023 8:35 AM PARTS CASTING 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 documented in this encounter Results * SCAN - LABS (10/27/2023 8:35 AM PARTS CASTING 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) us Provider Scanning Final Result documented in this encounter Visit Diagnoses Not on filedocumented in this encounter Care Teams Milling Machinist Relationship Specialty Start Date End Date Beka Nick MD [address] [place] [address] PCP - General Family Practice 05/31/23 04/25/24 Amber Montesinos, SHAILESH Petroleum Terminal Plant Operator Transplant 11/17/19 Jil Duncan MD Consulting Physician Infectious Diseases 01/10/20 Anita Gillespie MD Medical Oncologist/Payroll Secretary Medical Oncology 10/07/20 Tabitha Hruley MD [address] [place] [address] Consulting Physician Rheumatology 10/22/21 Massiel Gastelum MD [address] [place] [address] Consulting Physician Otolaryngology 08/27/22 documented as of this encounter
--- OUTSIDE RECORDS SUMMARY | 2024-10-28 06:06 | XMS_ITS | Encounter Summary ---
Author Organization [facility] Address [address] [place] [address] Phone Care Team Providers Care Office Assistant Receptionist Name Role Phone Amber Montesinos RN Unavailable [phone] Jil Duncan MD Unavailable [phone] Anita Gillespie MD Unavailable [phone] Tabitha Hurley MD Unavailable [phone] Massiel Gastelum MD Unavailable [phone] Beka Nick MD Primary Care Provider [phone] Encounter Details Date Type Department Care Team (Late st Contact Info) Description 09/28/2023 Telephone [facility] Infectious Diseases [address] [place] [id number] Ny Templeton LCSW Social History Tobacco Use Types Packs/Day Years [...] on file Legal 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 O MECHANIC APPRENTICE * Telephone Encounter - Ny Templeton LCSW - 09/28/2023 2:15 PM RADIO MECHANIC APPRENTICE Valgancirlovir is coming back as a High dose [facility] has [facility] question about [facility]. [facility] at [phone] O MECHANIC APPRENTICE documented in this encounter Plan of Treatment Scheduled Procedures Name Priority Associated Diagnoses Date/Ti me COLONOSCOPY Encounter for screening for colorectal cancer in high risk patient Family history of rectal cancer documented as of this encounter Visit Diagnoses Not on filedocumented in this encounter Care Teams Office Assistant Receptionist Relationship Specialty Start Date End Date Beka Nick MD [address] [place] [address] PCP - General Family Practice 05/31/23 04/25/24 Amber Montesinos, SHAILESH Junior Java Developer Transplant 11/17/19 Jil Duncan MD Consulting Physician Infectious Diseases 01/10/20 Anita Gillespie MD Medical Oncologist/Film Technician Medical Oncology 10/07/20 Tabitha Hurley MD [address] [facility] [address] [place], [place] [id number] Consulting Physician Rheumatology 10/22/21 Massiel Gastelum MD [address] [place], [place] [id number] Consulting Physician Otolaryngology 08/27/22 documented as of this encounter
--- OUTSIDE RECORDS SUMMARY | 2024-10-28 06:06 | XMS_ITS | Encounter Summary ---
Author Organization [facility] Healthcare Address [address] [place] [address] Care Team Providers [employer] Underground Utility Locator Name Role Phone Amber Montesinos RN Unavailable [phone] Jil Duncan MD Unavailable [phone] Anita Gillespie MD Unavailable [phone] Tabitha Hurley MD Unavailable [phone] Massiel Gastelum MD Unavailable Beka Nick MD Primary Care Provider [phone] Reason for Visit * Reason Comments Cough Back Pain * Auth/Cert Specialty Diagnoses / Procedures Referred By Contac t Referred To Contact Diagnoses Pneumonia of right lung due to infectious organism, unspecified part of lung Procedures na Referral ID Status Reason Start Date Expiration Date Visits Re quested Visits Authorized [id number] 1 1 Encounter Details Date Type Department Care Team (Latest Contact Info) Description 10/03/2023 7:58 AM MATHEMATICIAN RESEARCH - 10/13/2023 2:25 PM [facility] Hospital Encounter [address] [phone] Joni Cintron MD [address] [place] [address] Lisandra Talbot MD [address] [place] [address] Carlton Bhandari MD [address] [place] [address] Hans Najera Jr., MD [address] [place] [address] Jez Nash MD [address] [place] [address] Lisandra Harper MD [address] [place] [address] Anita Gillespie MD [address] [facility] [address] [place] [address] Amaris James MD [address] [place] [address] Pneumonia of right lung due to infectious organism, unspecified part of lung (Primary Dx); Parapneumonic effusion; Sepsis without acute organ dysfunction, due to unspecified organism (HCC) Discharge Disposition: Discharge to home or self care Social History Tobacco Use Types Packs/Day Years Used Date Smoking Tobacco: Never Smokeless Tobacco: Current Chew Alcohol Use Standard Drinks/Week Comments Yes 0 (1 standard drink = 0.6 oz pur e alcohol) occassional OASIS D0700: Social Isolation Answer Da te Recorded Frequency of experiencing loneliness or isolatio n Never 09/04/2023 [facility] Utilities Answer Date Recorded In the past 12 months has [employer], gas, oil, or water [employer] threatened to shut off services in your [...] slept in a mcc (including now)? No 10/04/2023 Personal Safety Answer Date Recorded Have you ever been in or are you currently in a harmful physical or emotional relationship or is someone making you feel afraid or unsafe? Denies 10/03/2023 Sex and Gender Information Value Date Recorded Sex Assigned at Not on file Legal Sex Male 6:28 AM MATHEMATICIAN RESEARCH Gender Identity Not on file Sexual Orientation Straight 08/22/2021 9: 23 AM CDT documented as of this encounter Last Filed Vital Signs Vital Sign Reading Time Taken Comments Blood Pressure 109/69 10/13/2023 8:25 AM MATHEMATICIAN RESEARCH Pulse 82 10/13/2023 8:25 AM MATHEMATICIAN RESEARCH Temperature 36.5 ??C (97.7 ??F) 10/13/2023 8:25 AM CS T Respiratory Rate 20 10/13/2023 8:25 AM MATHEMATICIAN RESEARCH Oxygen Saturation 98% 10/13/2023 8:25 AM MATHEMATICIAN RESEARCH Inhaled Oxygen Concentration - - Weight 61.8 kg (136 lb 3.2 oz) 10/12/2023 8:57 P M MATHEMATICIAN RESEARCH Height 172.7 cm (5' 8 ) 10/09/2023 8:55 PM MATHEMATICIAN RESEARCH Body Mass Index 20.71 10/09/2023 8:55 PM MATHEMATICIAN RESEARCH documented in this encounter Discharge Summaries * Karena Hicks MD - 10/13/2023 10:59 AM CST Images from the original note were not included. Inpatient Discharge Summary BRIEF OVERVIEW Admitting Provider: Joni Cintron MD Discharge Provider: No att. 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 Patient was endorsing cough and back pain for the last week, notes that he developed pain to the R lower back last Wednesday and attempted Tylenol and heating pads w/o relief, back pain spread to throughout the back. He developed a productive cough w/ thick white/yellow sputum and worsening ALSTON the day after, notes the cough was waking him up at night. He endorsed some chills, Tmax 100.2 and mild pleuritic chest pain with his cough. He was seen at an OSH Wednesday, diagnosed w/ R sided pneumonia andwas discharged with doxycycline 100mg and amox-clav 875-125mg BID. He denies any nausea, vomiting, diarrhea or constipation, endorsed some pain with urination. Notably, had a previous hospitalization 08/23-09/03 for elevated LFTs, E coli bacteremia (dischargedon Cipro), and CMV viremia. Vitals in the ED T 98.1, HR 102, RR 18, BP 114/74, 93% on RA. Labs notable for WBC 17.1, Hgb 12.1, Platelets 211, Na 135, K 4.9, CO2 21, BUN 35, Cr 1.17, Tbili 5.4, Albumin 2.8, Alk phos 181, AST/ALT 40/30, LDH 293, Lactate 1, INR 1.47, RPP + Rhino/Entero, Tacrolimus 8.9, VBG pH 7.3/pCO2 40, blood cultures pending. UA w/ 1+ bili, neg nitrites, LE. CXR w/ moderate R sided pleural effusion, R airspace opacity possibly pneumonia and atelectasis. CTChest w/ and w/o contrast with partially loculated moderate R and trace L pleural effusions, increased peribronchovascular consolidation and increased smooth interlobular septal line thickening w/ superimposed pulmonary edema and possibly infectious pneumonia. Lumbar spine MRI w/o evidence of OM or spinal epidural abscess. In the ED, thoracentesis was performed with 500cc fluid removed. Thora labs notable for LDH 306, Protein 3.3, Nuc cells 631, cultures NGTD. He noted some improvement in breathing s/p thoracentesis, but subsequently became tachycardic to 120s with increased work of breathing, requiring BiPAP. On CXRs/p thoracentesis, no pneumothorax noted. He was started on vanc/cefe. Copied from H&P from 10/03/23. Hospital Course: Acute hypoxic respiratory failure in setting of pneumonia and empyema Secondary to pneumonia and loculated parapneumonic effusion. Outpatient doxycycline and Augmentin failed. RPP also positive for rhino/enterovirus. He was started on cefepime during this admission andwas also briefly on vancomycin and azithromycin. Due to concern for empyema, he was given an extended course of antibiotics and was discharged on augmentin to complete 14 day course on 10/17. R chesttube was placed and managed by IP. He initially required BIPAP but has been weaned to RA. ID consulted for + serum galactomannan. Recs to repeat galactomannan and send fungal cultures on pleural fluid to determine clinical significance, which ultimately showed no growth to date. No further treatment given clinical improvement with antibiotics. Follow up with ID outpatient and discuss potential need for repeat chest CT. 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 Pleural fluid cytology neg for malignancy. Med onc consulted. Follow up outpatient. Idiopathic thrombocytopenic purpura On IVIG q4-6 weeks, received 10/09 per onc History of liver transplant S/p OLT 12/03 to autoimmune hepatitis. Current home medications are Tacrolimus 0.5mg q48h, Ursodiol 600mg daily, Aldactone 50mg, Lasix 20mg, which was continued. Hepatology followed peripherally tomonitor tacrolimus levels. Frequency of tacro decreased to q72 hours given elevated tacro levels. Follow up outpatient. 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 He was recently on Maribavir, switched to Foscarnet (EOT 09/07) and Valcyte as he had heterogenous CMV w/ varying resistant types during most recent admission 08/2023, levels stable this admission. He was continued on maintenance/secondary prophylaxis with letermovir and valganciclovir Active Issues Requiring Follow-up: - Continue augmentin through 10/17/2023. - Follow up with ID outpatient. They will decide need for repeat CT. Test Results Pending at Discharge: Pending Labs Order Current Status Glucose, body fluid In process Lactate dehydrogenase (LD) In process Triglycerides, body fluid In process Mold Blood Culture Blood Preliminary result Mycology (fungal) culture and stain Pleural fluid Chest Preliminary result Procedures: - chest tube placement. Removed 10/12. Pertinent Test Results: Collected Updated Procedure Result Status 10/08/2023 1316 10/09/2023 1629 Mycology (fungal) culture and stain Pleural fluid Chest [[id number]] Pleural fluid from Chest Preliminary result Component Value Direct Specimen Exam Stain: No Fungal elements seen. Report Preliminary Report: No growth of fungus to date 10/07/2023 2111 10/08/2023 0747 Mold Blood Culture Blood [[id number]] Blood Preliminary result Component Value Report Preliminary Report: No growth of fungus to date 10/07/2023 2001 10/12/2023 1320 Aspergillus galactomannan antigen Blood [[id number]] Blood Final result Component Value Aspergillus galactomannan Ag <0.500 ADDITIONAL INFORMATION This is a qualitative test and the resulted index value is not indicative of disease severity. Serial testing is recommended for patients at high risk for invasive aspergillosis. This assay was performed using the FDA-cleared [employer] Platelia Aspergillus Galactomannan EIA. Test Performed by: [facility] [address] [place] [address] Circular Sawyer Helper: Jason Sandy M.D. Ph.D.; CLIA# [id number] 10/04/2023 1646 10/06/2023 2303 Histoplasma Antigen Urine [[id number]] Urine Final result Component Value Histo Ag Ur result None Detected Histo Ag Ur interp Negative Result Interpretation: Reference interval: None Detected Results reported as ng/mL in 0.20 - 20.00 ng/mL range Results above 20.00 ng/mL are reported as 'Positive, Above the Limit of Quantification' Testing Performed by: [facility], [address] [facility] [place] [address]. This test was developed and its performance characteristics determined by [facility]. It has not been cleared or approved by the FDA; however, FDA clearance or approval is not currently required for clinical use. The results are not intended to be used as the sole means for clinical diagnosis or patient management decisions. Interpretative data updated 12/30/2020 10/04/2023 11510/05/2023 210 Blastomyces antibody, EIA, serum Blood [[id number]] Blood Final result Component Value Blastomyces Antibody Negative A single negative result does not exclude the diagnosis of blastomycosis. Repeat testing on a new sample in 7-14 days if clinically indicated. Test Performed by: [place] [address] Circular Sawyer Helper: Jason Sandy M.D. Ph.D.; CLIA# [id number] 10/04/2023 11510/07/2023 1438 Histoplasma Antibody Blood [[id number]] Blood Final result Component Value Histoplasma Ab, mycelial CF Negative Histoplasma Ab, yeast CF Negative Histoplasma Ab, Immunodiffusion Negative A negative complement fixation and immunodiffusion (CF/ID) result does not exclude the diagnosis of histoplasmosis. Repeat testing by CF/ID in 1-2 weeks if clinically indicated. Test Performed by: [place] [address] Circular Sawyer Helper: Jason Sandy M.D. Ph.D.; CLIA# [id number] 10/04/2023 1158 10/05/2023 0831 Cryptococcal Antigen, Serum Blood [[id number]] Blood Final result Component Value Cryptococcus ag, Serum Negative The cryptococcal antigen test was performed using the [employer] CrAg Lateral Flow Assay. This assay is FDA cleared for serum and CSF specimens and for the detection of Cryptococcus neoformans and Cryptococcus gattii. If the result is positive, the specimen will be titered and reported from less than 1:5 to greater than or equal to 1:2560. This assay doesnot distinguish between C. neoformans and C. gattii. Testing hemolyzed serum samples may lead to false negatives. Current interpretive data last revised 2018. 10/04/2023 1158 10/05/2023 2102 Coccidioides antibody screen w/reflex Blood [[id number]] Blood Final result Component Value Coccidioides ab screen, ser Negative Repeat testing on a new sample in 2-3 weeks if clinically indicated. ADDITIONAL INFORMATION This test has been modified from the reading coach's instructions. Its performance characteristics were determined by [facility] in a manner consistent with CLIA requirements. This test has not been cleared or approved by the U.S. Food and Drug Administration. Test Performed by: [facility] - [address] [address] Circular Sawyer Helper: Jason Sandy M.D. Ph.D.; CLIA# [id number] 10/04/2023 1158 10/07/2023 1346 Aspergillus galactomannan antigen Blood [[id number]] (Abnormal) Blood Final result Component Value Aspergillus galactomannan Ag 0.670 Abnormal A single positive result should be interpreted with caution and correlated with repeat testing on a new serum specimen, clinical findings and radiologic evidence. Serial monitoring of galactomannan levels is recommended for patients at high risk for invasive aspergillosis (e.g., HSCT recipients, patients with hematologic malignancy, etc.), and may be used to screen for the disease and/or monitor disease progression. Elevated galactomannan levels have been reported in cases of other fungal infections, infusion or ingestion of gluconate containing products, and in the presence of certain antibiotics (Note: piperacillin/tazobactam is no longer considered a common cause of cross-reactivity for this assay). Refer to https://www.idsociety.org/Organism/#Fungi for the most recent Practice Guidelines for Diagnosis and Management of Aspergillosis. ADDITIONAL INFORMATION This is a qualitative test and the resulted index value is not indicative of disease severity. Serial testing is recommended for patients at high risk for invasive aspergillosis. This assay was performed using the FDA-cleared [employer] Platelia Aspergillus Galactomannan EIA. Test Performed by: [facility] [address] [place] [address] Circular Sawyer Helper: Jason Sandy M.D. Ph.D.; CLIA# [id number] 10/04/2023 1158 10/07/2023 1405 Microbiology Courtesy Callback Blood [[id number]] Blood Final result Component Value TestName AsperGalacto Ag Date Notified [id number] Time Notified 140 Called/Read Back Boston Hager MD Called By RK 10/04/2023 0621 10/05/2023 1429 Cytomegalovirus (CMV) DNA PCR, quantitative Blood [[id number]] (Abnormal) Blood Final result Component Value CMV DNA Detected Abnormal Interpretive Data: The quantifiable range of this assay is 34 IUnits/mL to 10,000,000 IUnits/mL (1.53 log IUnits/mL to 7.0 log IUnits/mL). Testing was performed by the NIA 6800 CMV Test ([employer] Testing performed at [facility]. Current interpretive data was last revised on 2021. CMV DNA IU/mL 121 CMV DNA log IU/mL 2.08 10/03/2023 2206 10/05/2023 0735 Infection Prevention MRSA Only (Staphylococcus aureus) Culture Nasal [[id number]] Nasal Final result Component Value Report Final Report: Negative 10/03/2023 1725 10/03/2023 1738 Urinalysis reflex to microscopic and culture Urine [[id number]] (Abnormal) Urine Final result Component Value Color, ur Yellow Clarity, ur Clear Specific gravity, ur 1.039 High pH, urine 6.0 Interpretive Data ???Urine pH is affected by diet, medications, systemic acid-base disturbances, and renal tubular function. pH may affect urinary stone formation. For example, urine pH below 6.0 may help reduce the tendency for calcium phosphate stones and pH greater than 6.0 may reduce the tendency for uric acid stone formation. Source: [facility] Current Interpretive Data was last revised on 2017 Protein, ur ql Trace Glucose, ur ql Negative Ketones, ur Trace Bilirubin, ur 1+ Abnormal Blood, ur Negative Urobilinogen, ur <2.0 Nitrite, ur Negative Leukocyte esterase, ur Negative UA reflex comment Reflex conditions for microscopic UA and culture not met. 10/03/2023 1200 10/09/2023 1419 Aerobic and anaerobic culture and gram stain Pleural fluid Pleural cavity [[id number]] Pleural fluid from Pleural cavity Final result Component Value Direct Specimen Exam Stain: Cytospin Gram stain shows: Few polymorphonuclear leukocytes seen. Red blood cells present. Other cellular material present. No organisms seen. Report Final Report: No growth 10/03/2023 0933 10/04/2023 0741 Pneumonia PCR with aerobic culture and Gram stain Sputum [[id number]] (Abnormal) Sputum Final result Component Value Direct Specimen Exam Stain: Abundant squamous epithelial cells seen indicating excessive oropharyngeal contamination. Culture will not be processed further. Please submit another specimen. Smear results called to and read back by: Yulisa Joy MD [phone] on 10/03/2023 10:10:17 by: Bahman Torres [place] Direct Specimen Exam Molecular Analysis: Abundant squamous epithelial cells observed on Gram stain. Specimen will not be processed for rapidmolecular analysis. Report Final Report: This is the final report. . 10/03/2023 0919 10/07/2023 1200 Blood culture Blood Antecubital, left [[id number]] Blood from Antecubital, left Final result Component Value Report Final Report: No growth 10/03/2023 0919 10/07/2023 1200 Blood culture Blood Forearm, left [[id number]] Blood from Forearm, left Final result Component Value Report Final Report: No growth 10/03/2023 0824 10/03/2023 0957 Respiratory pathogen panel Nasopharyngeal [[id number]] (Abnormal) Nasopharyngeal Final result Component Value Influenza A RNA Not Detected Influenza B RNA Not Detected RSV RNA Not Detected COVID-19 RNA Not Detected Coronavirus 229E RNA Not Detected Coronavirus HKU1 RNA Not Detected Coronavirus NL63 RNA Not Detected Coronavirus OC43 RNA Not Detected Adenovirus DNA Not Detected Metapneumovirus RNA Not Detected Rhinovirus/Enterovirus RNA Detected Abnormal Parainfluenza 1 RNA Not Detected Parainfluenza 2 RNA Not Detected Parainfluenza 3 RNA Not Detected Parainfluenza 4 RNA Not Detected B. pertussis DNA Not Detected B. parapertussis DNA Not Detected C. pneumoniae DNA Not Detected M. pneumoniae DNA Not Detected CT Chest W WO Contrast [[id number]] Collected: 10/03/23 1710 Order Status: Completed Updated: 10/03/231723 Narrative: EXAMINATION: Computed tomography of the chest with and without intravenous contrast HISTORY: Status post liver transplant 03/20/2019, complicated by post transplant lymphoproliferative disorder with one week of productive cough and back pain TECHNIQUE: Transaxial computed tomographic images of the chest were obtained with and without intravenous contrast according to the standard protocol after the uneventful administration of 70 mL Opti-Ray 350 intravenous contrast. COMPARISON: CT 08/23/2023 FINDINGS: Imaged thyroid is normal. 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 Thoracic aorta is normal in caliber. Stable moderate cardiomegaly. Calcified right hilar nodes likely sequela prior granulomatous disease. Interval development of a multilobulated, partially loculated moderate right pleural effusion, which measures simple fluid attenuation. There is associated subtotal collapse of the remainder of the right lung. No evidence of active arterial extravasation. Interval increase in size of a trace left pleural effusion with associated left basilar atelectasis. There are persistent areas of peribronchial vascular consolidation, increased in the remainder of the aerated lungs with debris within the distal bronchi. No pneumothorax. Esophagus is nondistended. Postsurgical changes of liver transplant no. Within the imaged abdomen, there is persistent lymphadenopathy throughout the retroperitoneum and mesentery, not significantly changed compared to prior examination, for reference a lymph node in the right upper quadrant mesentery measures 1.0 cm, previously 1.0 cm (series 12, image 260). Spleen is surgically absent. No suspicious osseous lesions. Impression: 1. No evidence of active extravasation within the chest. 2. Interval development of a partially loculated moderate right and trace left pleural effusions, which measure simple fluid in attenuation. Within the remaining aerated lungs, there is increased peribronchovascular consolidation and increased smooth interlobular septal line thickening, favored to represent worsening organizing pneumonia with superimposed pulmonary edema and possibly infectious pneumonia. 3. Stable extensive multistation lymphadenopathy of the chest and imaged abdomen in keeping with post transplant lymphoproliferative disorder. Dictated by: Guido Phillips MD The radiology attending physician has personally reviewed this study, and had reviewed and/or edited this written report and agrees with it. Electronically signed by: Robert Gilman M.D., MPH MRI Spine Total Complete W WO Contrast [[id number]] Collected: 10/03/23 1438 Order Status: Completed Updated: 10/03/23 1502 Narrative: EXAMINATION: 1. Magnetic resonance imaging (MRI) of the cervical spine without and with contrast 2. Magnetic resonance imaging (MRI) of the thoracic spine without and with contrast 3. Magnetic resonance imaging (MRI) of the lumbar spine without and with contrast HISTORY: Back pain, concern for spinal epidural abscess. 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 TECHNIQUE: Multiplanar multi-weighted MRI of the cervical spine was performed without and with intravenous contrast using the standard protocol. Multiplanar multi-weighted MRI of the thoracic was performed without and with intravenous contrast using the standard protocol. Multiplanar multi-weighted MRI of the lumbar spine was performed without and with intravenous contrast using the standard protocol. Contrast information: 12 mL Gadoterate Meglumine COMPARISON: CT neck dated 08/23/2023 FINDINGS: There is no abnormal disc or marrow edema or endplate irregularity. No epidural fluid collection. No abnormal contrast enhancement in the spine. CERVICAL SPINE: There is mild upper cervical kyphosis centered at C3-C4. The craniocervical junction is normal. The visualized portions of the skull base and the posterior fossa are normal. There is motion artifact on the sagittal T2 SPACE sequences contributing to apparent hyperintensity within the cervical cord that is artifactual. The spinal cord demonstrates normal signal intensity on all sequences. Intervertebral disk heights are normal. No spinal canal or neuroforaminal stenosis. Susceptibility artifact in the right neck from metallic clips. Multiple rounded subcentimeter short axis cervical lymph nodes bilaterally. Normal signal voids are present in the vertebral arteries. THORACIC AND LUMBAR SPINE: There are 12 rib bearing thoracic vertebra. The L4 and L5 segments are sacralized. Alignment of the thoracolumbar spine is normal. No compression fractures. Normal spinal cord signal intensity. Conus medullaris terminates at T12-L1 and is normal. Mild L3-L4 degenerative disc disease with height loss and disc desiccation. No spinal canal or neuroforaminal stenosis. 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 Normal caliber aorta. Impression: 1. No evidence of discitis-osteomyelitis or spinal epidural abscess. 2. Incompletely imaged moderately sized loculated right pleural effusion. Dictated by: Alex Farooq M.D. The radiology attending physician has personally reviewed this study, and had reviewed and/or edited this written report and agrees with it. Electronically signed by: Ksenia Chan M.D. Discharge Details Physical Exam at Discharge: Discharge Condition: stable Pulse: 82 Resp: 20 BP: 109/69 Temp: 36.5 ??C (97.7 ??F) Weight: 61.8 kg (136 lb 3.2 oz) Pertinent Exam Findings at Discharge: Gen: Chronically ill appearing, no acute distress HEENT: Atraumatic, normocephalic. Anicteric sclera. Oropharynx clear. CV: Regular rate and rhythm. Pulm: Unlabored breathing. No wheezes or crackles. Chest tube removed. No bleeding from site. Abd: Bowel sounds present. Soft, non-tender, non-distended. : Deferred. Skin: No lesions or rashes on exposed skin. Neuro: Alert & oriented x 3. Psych: Appropriate mood and affect. Discharge Disposition: Discharge to home or self care Code Status at Discharge: Full code Discharge Instructions: - Complete course of antibiotic (amoxicillin-clav). Last dose 10/17. - Follow up at [facility]. - Please call your doctor or go to the nearest emergency room if you notice fevers, chills, chest pain, difficulty breathing. - Tacrolimus frequency was decrease to every 72 hours. Next dose is due on 10/15/2023. Discharge Medications: Current Medications TAKE these medications tacrolimus 0.5 mg immediate-release capsule Take 1 capsule (0.5 mg total) by mouth every third day For: liver transplant rejection prevention This medication is very important: It prevents organ rejection. valGANciclovir 450 mg tablet Take 2 tablets (900 mg total) by mouth 2 (two) times a day For: Blood Stream/Endovascular Infection Commonly known as: VALCYTE This medication is very important: It prevents dangerous infection. amoxicillin-clavulanate 875-125 mg per tablet Take 1 tablet by mouth 2 (two) times a day for 4 days For: Pneumonia, Aspiration Commonly known as: AUGMENTIN furosemide 20 mg tablet Take 1 tablet (20 mg total) by mouth daily Commonly known as: LASIX INV-[facility] heparin lock flush (porcine) Infuse 5 mL into a venous catheter as needed (LINE CARE). Indications: LINE CARE For: LINE CARE letermovir 480 mg tablet Take 1 tablet (480 mg total) by mouth daily Commonly known as: PREVYMIS magnesium oxide 400 mg (241.3 mg elemental magnesium) tablet Take 1 tablet (400 mg total) by mouth 2 (two) times a day for 7 days Take while on foscarnet For: low amount of magnesium in the blood Commonly known as: MAG-OX sodium chloride 0.9% parenteral solution Infuse 10 mL into a venous catheter as needed (LINE CARE). Indications: LINE CARE For: LINE CARE spironolactone 50 mg tablet Take 1 tablet (50 mg total) by mouth daily Commonly known as: ALDACTONE ursodioL 300 mg capsule Take 2 capsules (600 mg total) by mouth daily with dinner Commonly known as: ACTIGALL ASK your doctor about these medications budesonide 0.5 mg/2 mL nebulizer solution Take 0.5 mg by nebulization daily Rinse mouth with water after use. Do not swallow. Commonly known as: PULMICORT Outpatient Follow-Up: Future Appointments Date Time Provider Department Center 11/29/2023 9:00 AM Lisandra Auguste NP ID TABEX 100 [facility] 01/05/2024 8:15 AM LAB, CAM 7 ONC ONC LAB CAM7 [facility] 01/05/2024 9:00 AM Nancy Butler NP ONC CAM7 [facility] Oncology 01/05/2024 9:30 AM [facility] TXP CAM 12B [facility] GA[facility] 02/07/2024 8:40 AM Massiel Gastelum MD OY CLN L20 [facility] Discharge Planning I have spent 37 minutes on discharge planning activities. Time spent was on Counselling with patient/family, discharge exam, and Other provider communication. EMATICIAN RESEARCH documented in this encounter Discharge Instructions * Discharge Instructions* Karena Hicks MD - 10/13/2023 10:59 AM MATHEMATICIAN RESEARCH - Complete course of antibiotic (amoxicillin-clav). Last dose 10/17. - Follow up at [facility]. - Please call your doctor or go to the nearest emergency room if you notice fevers, chills, chest pain, difficulty breathing. - Tacrolimus frequency was decrease to every 72 hours. Next dose is due on 10/15/2023. EMATICIAN RESEARCH documented in this encounter Medications at Time of Discharge amoxicillin-clav ulanate (AUGMENTIN) 875-125 mg per tabletIndication s:Pneumonia, Aspiration Take 1 tablet by mouth 2 (two) times a day for 4 days 8 tablet 10/13/2023 3 letermovir (PREVYMIS) 480 mg tabletIndication s:Prophylaxis, Medical Take 1 tablet (480 mg total) by mouth daily 30 tablet 5 09/28/2023 4 0.9 % sodium chloride (sodium chloride 0.9%) parenteral solutionIndicati ons:LINE CARE Infuse 10 mL into a venous catheter as needed (LINE CARE). Indications: LINE CARE 4 budesonide (PULMICORT) 0.5 mg/2 mL nebulizer solution Take 0.5 mg by nebulization daily Rinse mouth with water after use. Do not swallow. 4 furosemide (LASIX) 20 mg tablet Take 1 tablet (20 mg total) by mouth daily 30 tablet 1 09/22/2023 3 furosemide (LASIX) 20 mg tablet Take 2 tablets (40 mg total) by mouth daily 60 tablet 1 10/14/2023 4 [facility] heparin lock flush, porcine,Indicati [...] 4 spironolactone (ALDACTONE) 50 mg tablet Take 1 tablet (50 mg total) by mouth daily 30 tablet 1 09/22/2023 3 spironolactone (ALDACTONE) 50 mg tablet Take 2 tablets (100 mg total) by mouth daily 60 tablet 1 10/14/2023 4 tacrolimus 0.5 mg immediate-releas e capsuleIndicatio ns:Prevention of Liver Transplant Rejection Take 1 capsule (0.5 mg total) by mouth every third day 10/13/2023 3 tacrolimus 0.5 mg immediate-releas e capsuleIndicatio ns:Prevention of Liver Transplant Rejection Take 1 capsule (0.5 mg total) by mouth every third day 10 capsule 1 10/14/2023 4 ursodioL (ACTIGALL) 300 mg capsuleIndicatio ns:Cholelithiasi [...] Date amoxicillin-clavul anate (AUGMENTIN) 875-125 mg per tabletIndications: Pneumonia, Aspiration Take 1 tablet by mouth 2 (two) times a day for 4 days 8 tablet 10/13/2023 3 tacrolimus 0.5 mg immediate-release capsuleIndications :Prevention of Liver Transplant Rejection Take 1 capsule (0.5 mg total) by mouth every third day 10/13/2023 3 documented in this encounter Discharge Disposition Disposition Code Departure Means Destination Comment s Discharge to home or self care documented in this encounter Progress Notes * Karena Hicks MD - 10/13/2023 10:48 AM CST Oncology Daily Progress Note Division of Hospital Medicine Name: Beka Lares : 1995 Today's Date: October 13, 2023 Age: 28 y.o. male Admission: 10/03/2023 Bed: [id number] LOS: 10 days Subjective Chief complaint: dyspnea Interval History No acute events overnight. Pt reports dyspnea is much improved. No new complaints. Medically stablefor discharge today. Objective Scheduled Meds PRN Meds Infusions amoxicillin-clavulanate, 875 mg of amoxicillin, oral, BID enoxaparin, 40 mg, subcutaneous, Daily-2100 [Held by Provider] furosemide, 20 mg, oral, Daily letermovir, 480 mg, oral, Daily lidocaine, 1 patch, transdermal, Q24H sodium chloride 0.9%, 0.5-20 mL, intra-catheter, Q8H PIPPA spironolactone, 50 mg, oral, Daily [START ON 10/15/2023] tacrolimus, 0.5 mg, oral, Q72H ursodioL, 600 mg, oral, Daily with dinner valGANciclovir, 900 mg, oral, BID benzocaine-menthoL, 1 lozenge, mouth/throat, Q2H PRN benzonatate, 100 mg, oral, TID PRN sodium chloride 0.9%, 30 mL, intravenous, PRN ipratropium-albuteroL, 3 mL, nebulization, Q4H PRN (RT) methyl salicylate-menthol, , topical, QID PRN ondansetron, 4 mg, intravenous, Q6H PRN sodium chloride 0.9%, 0.5-20 mL, intra-catheter, PRN Vitals Most Recent Vitals: T 36.5 ??C (97.7 ??F), HR 82, BP 109/69, RR 20, SpO2 98 %. 24hr Min/Max: Temp Min: 36.5 ??C (97.7 ??F) Max: 36.8 ??C (98.2 ??F) Pulse Min: 82 Max: 95 BP Min: 106/64 Max: 118/63 Resp Min: 20 Max: 20 SpO2 Min: 97 % Max: 99 % Intake/Output Summary (Last 24 hours) at 10/13/2023 1056 Last data filed at 10/13/2023 0840 Gross per 24 hour Intake 540 ml Output 400 ml Net 140 ml Physical Exam Gen: Chronically ill appearing, no acute distress HEENT: Atraumatic, normocephalic. Anicteric sclera. Oropharynx clear. CV: Regular rate and rhythm. Pulm: Unlabored breathing. No wheezes or crackles. Chest tube removed. No bleeding from site. Abd: Bowel sounds present. Soft, non-tender, non-distended. : Deferred. Skin: No lesions or rashes on exposed skin. Neuro: Alert & oriented x 3. Psych: Appropriate mood and affect. Lines, Drains, Airways Peripheral IV 10/03/23 20 G Anterior;Distal;Left;Upper Arm (Active) Chest Tube Right (Active) Labs/Diagnostic Review CBC: Recent Labs Lab Units 10/13/23 0059 WBC K/cumm 7.5 HEMOGLOBIN g/dL 10.6* HEMATOCRIT % 28.8* MCV fL 106.7* MCH pg 39.3* MCHC g/dL 36.8* RDW CV % 17.9* RDWSD fL 69.8* MPV fL 11.3 CMP: Recent Labs Lab Units 10/13/23 0059 SODIUM mmol/L 139 POTASSIUM PLASMA mmol/L 4.8 CO2 mmol/L 21* BUN SERUM mg/dL 26* GLUCOSE mg/dL 98 CREATININE mg/dL 0.78* CALCIUM mg/dL 7.9* CHLORIDE mmol/L 112* ANIONGAP mmol/L 6 LDH: INR - Uric Acid:- (Labs above are the most recent result obtained in the last 24 hours unless otherwise specified. For additional labs/trends, see Epic.) I have reviewed the laboratory results. Imaging Review XR Chest 1 View Result Date: 10/12/2023 Comparison is made to prior study of 10/11/2023 at 5:54 AM. In the interval, no change in moderate cardiomegaly. A small left pleural effusion is seen with bibasilar atelectasis but there is no pulmonary edema or pneumonia. Previously noted thoracostomy tube has been removed. There is no pneumothorax. 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 Electronically signed by: Vik Moreira M.D. Assessment/Plan Parapneumonic effusion Assessment & Plan - Pt developed respiratory failure in setting [...] after last CT to reassess lung opacities. 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 Current home medications are Tacrolimus 0.5mg q48h, Ursodiol 600mg daily, Aldactone 50mg, Lasix 20mg - Change tacrolimus 0.5mg q48h -> 72 hours per liver txp team recommendations. 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 He was recently on Maribavir, switched to Foscarnet (EOT 09/07) and Valcyte as he had heterogenous CMV w/ varying resistant types duringmost recent admission 08/2023, levels stable this admission. - cont maintenance/secondary prophylaxis with letermovir and valganciclovir Edema of left lower extremity Assessment & Plan Nontender and he has been preferentially leaning onto the left side (due to R chest tube), but he has been largely immobile for quite some time and has an active infection which increases his risk for VTE. - Venous doppler showed no evidence of acute DVT - Spot dose IV Lasix (normally takes 20 mg PO) and assess response Idiopathic thrombocytopenic purpura (HCC) Assessment & Plan - On IVIG q4-6 weeks, received 10/09 per onc Code status : Full Code Diet : Adult Diet Regular PT/OT Dispo Rec : PT Recommendation/Plan: Home with family, Home with intermittent assist / OT Recommendation: Home with family, Home with intermittent assist Karena Verdugo MD EMATICIAN RESEARCH * Karena Hicks MD - 10/12/2023 5:58 PM CST Oncology Daily Progress Note Division of Hospital Medicine Name: Beka Lares : 1995 Today's Date: October 12, 2023 Age: 28 y.o. male Admission: 10/03/2023 Bed: [id number] LOS: 9 days Subjective Chief complaint: dyspnea Interval History No acute events overnight. Dyspnea improved. No new concerns. Objective Scheduled Meds PRN Meds Infusions cefepime, 2,000 mg, intravenous, Q8H PIPPA enoxaparin, 40 mg, subcutaneous, Daily-2100 [Held by Provider] furosemide, 20 mg, oral, Daily letermovir, 480 mg, oral, Daily lidocaine, 1 patch, transdermal, Q24H sodium chloride 0.9%, 0.5-20 mL, intra-catheter, Q8H PIPPA spironolactone, 50 mg, oral, Daily [START ON 10/15/2023] tacrolimus, 0.5 mg, oral, Q72H ursodioL, 600 mg, oral, Daily with dinner valGANciclovir, 900 mg, oral, BID benzocaine-menthoL, 1 lozenge, mouth/throat, Q2H PRN benzonatate, 100 mg, oral, TID PRN sodium chloride 0.9%, 30 mL, intravenous, PRN ipratropium-albuteroL, 3 mL, nebulization, Q4H PRN (RT) methyl salicylate-menthol, , topical, QID PRN ondansetron, 4 mg, intravenous, Q6H PRN sodium chloride 0.9%, 0.5-20 mL, intra-catheter, PRN Vitals Most Recent Vitals: T 36.4 ??C (97.5 ??F), HR 72, BP 107/61, RR 20, SpO2 100 %. 24hr Min/Max: Temp Min: 36.4 ??C (97.5 ??F) Max: 36.7 ??C (98 ??F) Pulse Min: 71 Max: 98 BP Min: 105/51 Max: 111/54 Resp Min: 20 Max: 20 SpO2 Min: 97 % Max: 100 % Intake/Output Summary (Last 24 hours) at 10/12/2023 182 Last data filed at 10/12/2023 0851 Gross per 24 hour Intake 20 ml Output 800 ml Net -780 ml Physical Exam Gen: Chronically ill appearing, no acute distress HEENT: Atraumatic, normocephalic. Anicteric sclera. Oropharynx clear. CV: Regular rate and rhythm. Pulm: Unlabored breathing. No wheezes or crackles. Chest tube removed. No bleeding from site. Abd: Bowel sounds present. Soft, non-tender, non-distended. : Deferred. Skin: No lesions or rashes on exposed skin. Neuro: Alert & oriented x 3. Psych: Appropriate mood and affect. Lines, Drains, Airways Peripheral IV 10/03/23 20 G Anterior;Distal;Left;Upper Arm (Active) Chest Tube Right (Active) Labs/Diagnostic Review CBC: Recent Labs Lab Units 10/12/23 0125 WBC K/cumm 6.7 HEMOGLOBIN g/dL 9.8* HEMATOCRIT % 26.1* MCV fL 102.8* MCH pg 38.6* MCHC g/dL 37.5* RDW CV % 17.8* RDWSD fL 66.4* MPV fL 11.4 CMP: Recent Labs Lab Units 10/12/23 0125 SODIUM mmol/L 138 POTASSIUM PLASMA mmol/L 4.5 CO2 mmol/L 21* BUN SERUM mg/dL 30* GLUCOSE mg/dL 114 CREATININE mg/dL 0.88 CALCIUM mg/dL 7.7* CHLORIDE mmol/L 111* ANIONGAP mmol/L 6 LDH: INR - Uric Acid:- (Labs above are the most recent result obtained in the last 24 hours unless otherwise specified. For additional labs/trends, see Epic.) I have reviewed the laboratory results. Imaging Review XR Chest 1 View Result Date: 10/12/2023 Comparison is made to prior study of 10/11/2023 at 5:54 AM. In the interval, no change in moderate cardiomegaly. A small left pleural effusion is seen with bibasilar atelectasis but there is no pulmonary edema or pneumonia. Previously noted thoracostomy tube has been removed. There is no pneumothorax. 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 Electronically signed by: Vik Moreira M.D. XR Chest 1 View Result Date: 10/11/2023 impression: Noted again is a right thoracostomy tube in place. There is no pneumothorax. Some atelectatic changes are again seen at the right lung base. There is a [id number] size left pleuraleffusion with associated collapse or consolidation in the left lower lobe 4 there are several air bronchograms. Mild cardiomegaly. Multiple abdominal clips are again seen in the abdomen, right greater than left. Electronically signed by: Asa Mcmullen M.D. Assessment/Plan Acute hypoxic respiratory failure (HCC) Assessment & Plan - secondary to pneumonia and loculated parapneumonic [...] - IP removed chest tube on 10/11 Parapneumonic effusion Assessment & Plan - Switch cefepime to amox-clavulanate 875 mg-125 mg BID and continue through 10/17 then stop. - Follow upserum GM and fungal BCx on blood and pleural fluid. - Repeat CT in 3-[address] to reassess lung opacities. 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 Current home medications are Tacrolimus 0.5mg q48h, Ursodiol 600mg daily, Aldactone 50mg, Lasix 20mg - Change tacrolimus 0.5mg q48h -> 72 hours per liver txp team recommendations. 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 He was recently on Maribavir, switched to Foscarnet (EOT 09/07) and Valcyte as he had heterogenous CMV w/ varying resistant types duringmost recent admission 08/2023, levels stable this admission. - cont maintenance/secondary prophylaxis with letermovir and valganciclovir Edema of left lower extremity Assessment & Plan Nontender and he has been preferentially leaning onto the left side (due to R chest tube), but he has been largely immobile for quite some time and has an active infection which increases his risk for VTE. - Venous doppler showed no evidence of acute DVT - Spot dose IV Lasix (normally takes 20 mg PO) and assess response Idiopathic thrombocytopenic purpura (HCC) Assessment & Plan - On IVIG q4-6 weeks, received 10/09 per onc * Pneumonia of right lung due to infectious organism, unspecified part of lung Assessment & Plan - initially planned to complete empiric 7 day course cefepime 10/10; this was extended to 14 days due to c/f empyema - s/p vancomycin (10/03-10/04), azithromycin (10/04-10/05) Code status : Full Code Diet : Adult Diet Regular PT/OT Dispo Rec : PT Recommendation/Plan: Home with family, Home with intermittent assist / OT Recommendation: Home with family, Home with intermittent assist Supplementary Attestation The total encounter time on this service date was 40 minutes which was spent performing a [id number] encounter and personally completing the provider-level activities documented in the note. This includes time spent prior to the visit and after the visit in direct care of the patient. This time does not include time spent in any separately reportable services. Karena Verdugo MD EMATICIAN RESEARCH EMATICIAN RESEARCH * Sherlyn Camarillo, PT - 10/12/2023 1:29 PM CST Physical Therapy Progress Note NOTE: This is a summary note of the santana components of the treatment session. For full details, review chart for all flowsheets documented on by this physical therapy clinician on this date. Vital signs documented in vital signs flowsheet. Care plan progress documented in Care Plan Activity. For questions, please review the treatment team and contact the PT or OIL TANKER CAPTAIN currently assigned to this patient. If a physical therapy clinician is not assigned to this patient, please call [phone]. 10/12/23 1329 PT Last Visit Session Type Discharge PT Received On 10/12/23 Safe Environment Arm band checked;Patient found in supine;Gait belt not utilized, see comment (pt independence) Subjective Agreeable to Therapy Family/Caregiver Present No Precautions Precautions Fall risk Activity Tolerance Activity Tolerance Comments Maranda: light Pain Assessment Pain Assessment 0-10 Pain Score 0 - No pain Cognition Arousal/Alertness Alert;Appropriate responses to stimuli Orientation Oriented X4 (person, place, time, situation) Following Commands Follows all commands and directions without difficulty Safety Judgment Good awareness of safety precautions Compliance/Behavior Easy to engage Balance Balance Yes Static Sitting Balance Static Sitting-Balance Support Feet supported;No upper extremity supported Static Sitting-Sitting Surface Bed Static Sitting-Level of Assistance Independent Static Standing Balance Static Standing-Balance Support No upper extremity supported Static Standing-Standing Surface Floor Static Standing-Level of Assistance Independent Bed Mobility Bed Mobility Yes Bed Mobility 1 Bed Mobility From 1 Supine Bed Mobility Type 1 To Bed Mobility to 1 Edge of bed Level of Assistance 1 Modified Independent Bed Mobility Comments 1 HOB elevated Transfers Transfer Yes Transfer 1 Transfer From 1 Sit Transfer Type 1 To and from Transfer to 1 Stand Technique 1 Sit to stand;Stand to sit Transfer Device 1 No device Transfer Level of Assistance 1 Modified Independent Trials/Comments 1 Use of B UE for force production and controlled descent Ambulation Ambulation Yes Ambulation 1 Distance (ft) 1 400 Surface 1 Level tile Device 1 No device Assistance 1 Independent Gait: Requires verbal cues to 1 Pace activity Gait Deviations 1 Base of support - decreased;Petty - decreased;Step length - decreased Basic Mobility - 6 Click How much difficulty does the patient have: Turning over in bed 4 How much difficulty does the patient currently have: Sitting down and standing up from a chair witharms? 4 How much difficulty does the patient have: Moving from lying on back to sitting on the side of the bed? 4 How much difficulty does the patient have: Moving to and from a bed to a chair including wheelchair? 4 How much help does the patient currently need: Walk in hospital room? 4 How much help from another person does the patient currently need: Climbing 3-5 steps with a railing? 4 Total 6 Click Score (range 6-24) 24 Score Interpretation 57.68 Safe Environment End of Therapy Session Safe Environment End of Therapy Session Patient left sitting at edge of bed;Overbed table within reach;Call light within reach Assessment Prognosis Good Problem List Decreased endurance Barriers to Discharge None Plan Plan Discharge;If this is the last note, consider this the discharge summary Recommendation/Plan PT Recommendation/Plan Home with family;Home with intermittent assist Patient at high risk for Readmission PT Frequency during current admission Discharge from this Service PT Equipment Recommended None Progress during current admission Discontinue PT PT - OK to Discharge Yes Multi-Disciplinary Problems (from Physical Therapy) Active Problems Problem: Mobility Start Date: 10/05/23 Goal Start Date Expected End Date End Date STG - Patient will ascend and descend 2 stairs with the following level of assist: SBA 10/05/23 10/12/23 -- Problem: PT Misc Start Date: 10/05/23 Goal Start Date Expected End Date End Date PT STG - Patient and caregivers will participate in and demonstrate understanding of therapeutic exercise and safe mobility strategies to improve independence with functional mobility. 10/05/23 10/12/23 -- EMATICIAN RESEARCH * Cleo Ruelas MD - 10/12/2023 1:16 PM CST Transplant Hepatology Immunosuppression note History: 28 y.o. male with history of autoimmune hepatitis s/p OLT (03/1999) c/b PTLD ( c- Myc, EBV+) s/p CHOPx 1 (2017), DA-EPOCH-R x 5 (09/2017-12/2017) with IT MTX, last chemo 2017, h/o CVID who is currentlyadmitted for management of pneumonia complicated by parapneumonic effusion. Date of transplant: 03/03/1999 Immunosuppression regimen: Tacrolimus 0.5mg every other day Plan: Patient has had a few tacrolimus trough levels that have been above goal and are true trough levels. Please change his frequency to 0.5mg tacrolimus every 72 hours. Please check daily LFTs Please check tacrolimus trough levels (trough levels should be drawn 30-60 minutes prior to the next dose due) Hepatology service will be in contact if any changes are required to immunosuppression dosing Cleo Ruelas MD Transplant Hepatology Fellow EMATICIAN RESEARCH * Chelsi Weinberg MD - 10/11/2023 1:07 PM CST Daily Progress Note Division of Hospital Medicine Name: Beka Lares : 1995 Today's Date: October 11, 2023 Age: 28 y.o. male Admission: 10/03/2023 Bed: [id number] LOS: 8 days Subjective Chief complaint: Back pain, dyspnea Interval History NAEON. Today reported L>R lower extremity swelling and sense of abdominal fullness. Thinks that his home diuretic dose has not been working that well. Objective Scheduled Meds PRN Meds Infusions cefepime, 2,000 mg, intravenous, Q8H PIPPA enoxaparin, 40 mg, subcutaneous, Daily-2100 [Held by Provider] furosemide, 20 mg, oral, Daily letermovir, 480 mg, oral, Daily lidocaine, 1 patch, transdermal, Q24H sodium chloride 0.9%, 0.5-20 mL, intra-catheter, Q8H PIPPA spironolactone, 50 mg, oral, Daily tacrolimus, 0.5 mg, oral, Every other day ursodioL, 600 mg, oral, Daily with dinner valGANciclovir, 900 mg, oral, BID benzocaine-menthoL, 1 lozenge, Q2H PRN benzonatate, 100 mg, TID PRN sodium chloride 0.9%, 30 mL, PRN ipratropium-albuteroL, 3 mL, Q4H PRN (RT) methyl salicylate-menthol, , QID PRN ondansetron, 4 mg, Q6H PRN sodium chloride 0.9%, 0.5-20 mL, PRN Vitals Most Recent Vitals: T 36.7 ??C (98 ??F), HR 88, BP 108/57, RR 23, SpO2 97 %. 24hr Min/Max: Temp Min: 36.6 ??C (97.9 ??F) Max: 36.7 ??C (98 ??F) Pulse Min: 87 Max: 88 BP Min: 108/57 Max: 115/59 Resp Min: 23 Max: 24 SpO2 Min: 97 % Max: 98 % Intake/Output Summary (Last 24 hours) at 10/11/2023 1308 Last data filed at 10/11/2023 0831 Gross per 24 hour Intake 20 ml Output 600 ml Net -580 ml Physical Exam General: No acute distress, appears stated age, resting in bed Head: NCAT Ears: External ears normal, hearing grossly intact Nose: Nares normal, no epistaxis Mouth/Throat: MMM, normal dentition, trachea midline, normal phonation Eyes: EOMI, anicteric, vision grossly intact Neck: Supple, normal ROM Cardiovascular: RRR, no m/r/g, peripheral pulses intact and symmetric, L>R LE edema Pulmonary/Chest: RIGHT chest tube in place with serosanguinous output, no leakage. Unlabored breathing, no stridor or wheezing Abdomen: Nondistended, nontender, no guarding, normal bowel sounds Neuro: A&O to person, place, and time. Moves all extremities spontaneously. Follows commands. Skin: Warm, dry, no rash, no wounds Psych: Normal mood and affect, normal speech. Lines, Drains, Airways Peripheral IV 10/03/23 20 G Anterior;Distal;Left;Upper Arm (Active) Chest Tube Right (Active) Labs/Diagnostic Review Na 137 Cl 110 BUN 35 K 4.8 CO2 18 Cr 0.84 Mg 1.8, G AST - ALT - Alk Phos - Ca 7.8 TP - Alb - Total Bili: - Direct Bili: - \ Hgb 10.3 / WBC 6.3 -------- Plt 220 / MCV 103.7 \ INR - (Labs above are the most recent result obtained in the last 24 hours. For additional labs/trends, see Epic.) I have reviewed the laboratory results. Imaging Review XR Chest 1 View Result Date: 10/11/2023 impression: Noted again is a right thoracostomy tube in place. There is no pneumothorax. Some atelectatic changes are again seen at the right lung base. There is a [id number] size left pleuraleffusion with associated collapse or consolidation in the left lower lobe 4 there are several air bronchograms. Mild cardiomegaly. Multiple abdominal clips are again seen in the abdomen, right greater than left. Electronically signed by: Asa Mcmullen M.D. XR Chest 1 View Result Date: 10/10/2023 Comparison chest radiograph 10/09/2023 at 2:51 AM. A right chest tube remains in place. Multiple surgical clips project over the right greater than left upper quadrants and right. Stable small right pleural effusion with slight interval improvement in mild right basilar atelectasis. Stable moderateleft pleural effusion with stable to slightly improved moderate left basilar atelectasis including partial left lower lobe collapse. No significant pulmonary edema. No pneumothorax. Heart size and mediastinal contours are partially obscured but likely stable. Electronically signed by: Ritesh Caleljas M.D. Assessment/Plan Edema of left lower extremity Assessment & Plan Nontender and he has been preferentially leaning onto the left side (due to R chest tube), but he has been largely immobile for quite some time and has an active infection which increases his risk for VTE. - Will check a venous doppler; not a candidate for anticoagulation at present due to the bloody chest tube output - Spot dose IV Lasix (normally takes 20 mg PO) and assess response Acute hypoxic respiratory failure (HCC) Assessment & Plan - secondary to pneumonia and loculated parapneumonic effussion. RPP also positive for rhino/enterovirus. He was treated with antibiotics and R sided chest tube. He initially required BIPAP but has been weaned to RA. - ID consulted for + serum galactomannan. Recs to repeat galactomannan and send fungal cultures on pleural fluid to determine clinical significance. Follow up mold blood cx as well. - per ICU signout, consult IP for assistance with chest tube management. 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 He was recently on Maribavir, switched to Foscarnet (EOT 09/07) and Valcyte as he had heterogenous CMV w/ varying resistant types duringmost recent admission 08/2023, levels stable this admission. - cont maintenance/secondary prophylaxis with letermovir and valganciclovir * Pneumonia of right lung due to infectious organism, unspecified part of lung Assessment & Plan - initially planned to complete empiric 7 day course cefepime 10/10; this was extended to 14 days due to c/f empyema - s/p vancomycin (10/03-10/04), azithromycin (10/04-10/05) Code status : Full Code Diet : Adult Diet Regular PT/OT Dispo Rec : PT Recommendation/Plan: Home with family, Home with intermittent assist / OT Recommendation: Home with family, Home with intermittent assist Supplementary Attestation The total encounter time on this service date was 45 minutes which was spent performing a [id number] encounter and personally completing the provider-level activities documented in the note. This includes time spent prior to the visit and after the visit in direct care of the patient. This time does not include time spent in any separately reportable services. Chelsi Weinberg MD EMATICIAN RESEARCH * Chelsi Weinberg MD - 10/10/2023 12:37 PM CST Daily Progress Note Division of Hospital Medicine Name: Beka Lares : 1995 Today's Date: October 10, 2023 Age: 28 y.o. male Admission: 10/03/2023 Bed: [id number] LOS: 7 days Subjective Chief complaint: Back pain, dyspnea Interval History NAEON. On room air. Still has soreness associated with chest tube, but is able to take breaths without too much difficulty. Objective Scheduled Meds PRN Meds Infusions enoxaparin, 40 mg, subcutaneous, Daily-2100 furosemide, 20 mg, oral, Daily letermovir, 480 mg, oral, Daily lidocaine, 1 patch, transdermal, Q24H sodium chloride 0.9%, 0.5-20 mL, intra-catheter, Q8H PIPPA spironolactone, 50 mg, oral, Daily tacrolimus, 0.5 mg, oral, Every other day ursodioL, 600 mg, oral, Daily with dinner valGANciclovir, 900 mg, oral, BID sodium chloride 0.9%, 30 mL, PRN ipratropium-albuteroL, 3 mL, Q4H PRN (RT) methyl salicylate-menthol, , QID PRN ondansetron, 4 mg, Q6H PRN sodium chloride 0.9%, 0.5-20 mL, PRN Vitals Most Recent Vitals: T 36.5 ??C (97.7 ??F), HR 96, BP 109/56, RR 24, SpO2 98 %. 24hr Min/Max: Temp Min: 36.5 ??C (97.7 ??F) Max: 36.8 ??C (98.2 ??F) Pulse Min: 81 Max: 99 BP Min: 108/60 Max: 121/61 Resp Min: 20 Max: 29 SpO2 Min: 95 % Max: 100 % Intake/Output Summary (Last 24 hours) at 10/10/2023 1237 Last data filed at 10/10/2023 0605 Gross per 24 hour Intake 1570.05 ml Output 1110 ml Net 460.05 ml Physical Exam General: No acute distress, appears stated age, resting in bed Head: NCAT Ears: External ears normal, hearing grossly intact Nose: Nares normal, no epistaxis Mouth/Throat: MMM, normal dentition, trachea midline, normal phonation Eyes: EOMI, anicteric, vision grossly intact Neck: Supple, normal ROM Cardiovascular: RRR, no m/r/g, peripheral pulses intact and symmetric, no edema Pulmonary/Chest: RIGHT chest tube in place with serosanguinous output, no leakage. Unlabored breathing, no stridor or wheezing Abdomen: Nondistended, nontender, no guarding, normal bowel sounds Extremities: No lymphedema, normal muscle bulk Neuro: A&O to person, place, and time. Moves all extremities spontaneously. Follows commands. Skin: Warm, dry, no rash, no wounds Psych: Normal mood and affect, normal speech. Lines, Drains, Airways Peripheral IV 10/03/23 20 G Anterior;Distal;Left;Upper Arm (Active) Chest Tube Right (Active) Labs/Diagnostic Review Na 134 Cl 109 BUN 40 K 5.1 CO2 17 Cr 1.01 Mg 2.0, G AST - ALT - Alk Phos - Ca 7.6 TP - Alb - Total Bili: - Direct Bili: - \ Hgb 10.1 / WBC 9.1 -------- Plt 242 / MCV 104.6 \ INR - (Labs above are the most recent result obtained in the last 24 hours. For additional labs/trends, see Epic.) I have reviewed the laboratory results. Imaging Review XR Chest 1 View Result Date: 10/10/2023 Comparison chest radiograph 10/09/2023 at 2:51 AM. A right chest tube remains in place. Multiple surgical clips project over the right greater than left upper quadrants and right. Stable small right pleural effusion with slight interval improvement in mild right basilar atelectasis. Stable moderateleft pleural effusion with stable to slightly improved moderate left basilar atelectasis including partial left lower lobe collapse. No significant pulmonary edema. No pneumothorax. Heart size and mediastinal contours are partially obscured but likely stable. Electronically signed by: Ritesh Callejas M.D. XR Chest 1 View Result Date: 10/09/2023 The current study is compared with the prior radiograph dated 10/08/2023 1:57 AM. Right basilar pleural catheter remains in place. Surgical clips project over the right upper quadrant and left upper quadrant. The cardiomediastinal silhouette is partially obscured but grossly stable. Small to moderate left pleural effusion with associated moderate left basilar atelectasis, similar to slightly increased compared to the prior examination. Unchanged small right pleural effusion with associated mildright basilar atelectasis. No pulmonary edema. No pneumothorax. Dictated by: Jason Gonzales MD The radiology attending physician has personally reviewed this study, and had reviewed and/or edited this written report and agrees with it. Electronically signed by: Darcy Jimenez M.D. Assessment/Plan Acute hypoxic respiratory failure (HCC) Assessment & Plan - secondary to pneumonia and loculated parapneumonic effussion. RPP also positive for rhino/enterovirus. He was treated with antibiotics and R sided chest tube. He initially required BIPAP but has been weaned to RA. - ID consulted for + serum galactomannan. Recs to repeat galactomannan and send fungal cultures on pleural fluid to determine clinical significance. Follow up mold blood cx as well. - per ICU signout, consult IP for assistance with chest tube management. 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 He was recently on Maribavir, switched to Foscarnet (EOT 09/07) and Valcyte as he had heterogenous CMV w/ varying resistant types duringmost recent admission 08/2023, levels stable this admission. - cont maintenance/secondary prophylaxis with letermovir and valganciclovir * Pneumonia of right lung due to infectious organism, unspecified part of lung Assessment & Plan - plan to complete empiric 7 day course cefepime 10/10. - s/p vancomycin (10/03-10/04), azithromycin (10/04-10/05) Code status : Full Code Diet : Adult Diet Regular PT/OT Dispo Rec : PT Recommendation/Plan: Home with family, Home with intermittent assist / OT Recommendation: Home with family, Home with intermittent assist Supplementary Attestation The total encounter time on this service date was 50 minutes which was spent performing a [id number] encounter and personally completing the provider-level activities documented in the note. This includes time spent prior to the visit and after the visit in direct care of the patient. This time does not include time spent in any separately reportable services. Chelsi Weinberg MD EMATICIAN RESEARCH * Aditi Tapia, OT - 10/10/2023 9:34 AM CST OCCUPATIONAL THERAPY INITIAL DISCHARGE NOTE NOTE: This is a summary note of the santana components of the evaluation session. For full details, review chart for all flowsheets documented on by this occupational therapist on this date. Vital signs documented in vital signs flowsheet. Chart reviewed Assessment: Patient denies need for further occupational therapy at this time or report/demonstrates baseline status with ADLs/IADLs. Patient will be discharged from occupational therapy. Please re-refer if status changes. Subjective: Patient reports the following: no significant change in strength or range of motion in arms and/or legs. Patient denies: new dizziness with activity or position changes, falls in the past year, any significant changes in balance. In addition, patient reports no significant difficulty with performance of ADLs/IADLs compared to baseline and no concerns with home accessibility or support upon return to home. Patient reports being out of bed and mobilizing during this hospital stay. 10/10/23 0921 General Chart Reviewed Yes Session Type Evaluation OT Received On 10/10/23 Safe Environment Arm band checked;Patient found in supine Subjective Agreeable to Therapy Family/Caregiver Present No Occupational Therapy-Patient Goal agreeable with OT POC Current Functional Status OT Functional Mobility IND without use of AD Precautions Precautions Fall risk Home Living Type of Home House Home Layout One level;Stairs with rails;Basement # of Steps-Railed 10 Home Access Stairs to enter with rails Entrance Stairs-Rails None Entrance Stairs-Number of Steps 1 Home Mobility Equipment-Available Crutches Home Mobility Equipment-Currently Using None Prior Function Level of [place] Independent with ADLs;Independent functional transfers;Independent with ambulation;Independent with homemaking with ambulation Lives With Family Receives Help From Family (FT assist) ADL Assistance Independent Instrumental ADL (IADL) Assistance Independent Fall within the last 6 months No ADL ADLS (WDL) X Grooming Grooming: Where assessed Standing at sink Grooming: Level of assistance Independent LE Dressing LE Dressing: Where assessed Edge of bed;Sitting;Standing LE Dressing: Level of assistance Independent Toilet Transfers Toilet Transfer From Bed Toilet Transfer Type To and from Toilet Transfer to Standard toilet Toilet Transfer Technique Ambulating Toilet Transfer: Equipment No device Toilet Transfers Modified independence Pain Assessment Pain Assessment No/denies pain Cognition Overall Cognitive Status WFL Arousal/Alertness Alert;Appropriate responses to stimuli Attention Span Appears intact Memory Appears intact Current communication Appears Intact Orientation Oriented X4 (person, place, time, situation) Following Commands Follows all commands and directions without difficulty Safety Judgment Good awareness of safety precautions Awareness of Errors Good awareness of errors made Insight Fully aware of deficits Problem Solving Able to problem solve independently Compliance/Behavior Easy to engage Perseveration Not present Sensation Light Touch WFL (BUEs) Numbness/Tingling No (BUEs) Reach/Grasp RUE Reach WFL LUE Reach WFL RUE Grasp Gross grasp (5/5) LUE Grasp Gross grasp (5/5) Bed Mobility Bed Mobility Yes Bed Mobility 1 Bed Mobility From 1 Supine Bed Mobility Type 1 To Bed Mobility to 1 Edge of bed Level of Assistance 1 Modified Independent Transfers Transfer Yes Transfer 1 Transfer From 1 Sit Transfer Type 1 To and from Transfer to 1 Stand Technique 1 Sit to stand;Stand to sit Transfer Device 1 No device Transfer Level of Assistance 1 Modified Independent RUE Assessment RUE Assessment WFL LUE Assessment LUE Assessment WFL Other Comments Comments no further need for acute OT services Daily Activity - 6 Clicks Putting on and taking off regular lower body clothing 4 Bathing 4 Toileting 4 Putting on and taking off upper body clothing 4 Personal Grooming 4 Eating Meals 4 Total Score (range 6-24) 24 Score Interpretation 57.54 Safe Environment End of Therapy Session Safe Environment End of Therapy Session Patient left supine in bed;Overbed table within reach;Call light within reach Assessment Barriers to Discharge None Plan Plan Discharge Recommendation/Plan OT Recommendation Home with family;Home with intermittent assist OT Frequency during current admission Discharge from this Service Progress during current admission Discontinue OT OT - OK to Discharge Yes OT Evaluation Complete Yes [place] Balance: 15 Cognitive Tests Short Blessed Total Score: 0 Education: Education Topic: Role of OT: purpose of OT in the hospital setting and plan of care, ADL training: proper safety adaptation and remediation techniques during self care or transfers, proper use of assistive devices, Body mechanics: proper positioning and alignment during self-care, functional mobility activities and/or exercises, and Energy Conservation: instruction on energy conservation, work simplification and proper breathing with activity Who: patient Readiness: Acceptance Method: Explanation Response: Verbalizes Understanding Patient in agreement with plan and instructed in safe mobility during ADLs. Patient's questions related to occupational therapy addressed. Patient left in safe position in room with call light withinreach. EMATICIAN RESEARCH * Wendy Bonds MD PhD - 10/09/2023 12:43 PM CST MICU Daily Progress Note Name: Beka Lares Today: October 09, 2023 : 1995 Age: 28 y.o. male Admit: 10/03/2023 Bed: [id number] LOS: 6 days Identifying Information: Beka Lares is a 28 y.o. 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 Admitted 10/03/2023 7:58 AM, in ICU for 5d 15h. Subjective Interval - Afebrile, HDS. SpO2 95-98% on RA. I/O +75mL, -1.2L since admission, 60mL out of chest tube - Patient endorsing low mood which he attributes to hospitalization. His mood improves with family visiting. He is not interested in any therapy at this time, and shared that he would feel better if he even got to look out the window. We talked about his current medical condition, relative stability and barriers to discharge (chest tube). He is understanding and appreciative of the conversation. - Patient shared that he is otherwise feeling well. He does not premedicate for IVIG infusions. Plan - chest tube to water seal - 30g IVIG (500mg/kg) requested by Onc - TTF Lines: Peripheral IV 10/03/23 20 G Anterior;Distal;Left;Upper Arm (Active) Peripheral IV 10/07/23 22 G Anterior;Proximal;Right Forearm;Arm (Active) Chest Tube Right (Active) MEDICATIONS Scheduled Meds PRN Meds Infusions cefepime, 2,000 mg, intravenous, Q8H PIPPA enoxaparin, 40 mg, subcutaneous, Daily-2100 furosemide, 20 mg, oral, Daily letermovir, 480 mg, oral, Daily lidocaine, 1 patch, transdermal, Q24H [Held by Provider] polyethylene glycol, 17 g, oral, Daily sodium chloride 0.9%, 0.5-20 mL, intra-catheter, Q8H PIPPA spironolactone, 50 mg, oral, Daily tacrolimus, 0.5 mg, oral, Every other day ursodioL, 600 mg, oral, Daily with dinner valGANciclovir, 900 mg, oral, BID sodium chloride 0.9%, 30 mL, PRN ipratropium-albuteroL, 3 mL, Q4H PRN (RT) methyl salicylate-menthol, , QID PRN ondansetron, 4 mg, Q6H PRN sodium chloride 0.9%, 0.5-20 mL, PRN Objective Vitals: The patient's height is 172.7 cm (5' 7.99 ) and weight is 59.3 kg (130 lb 11.7 oz). His oral temperature is 36.8 ??C (98.2 ??F). His blood pressure is 113/60 and his pulse is 90. His respiration is 23 and oxygen saturation is 96%. Vitals: 10/09/23 0500 10/09/23 0600 10/09/23 0700 10/09/23 08 BP: 113/60 BP Location: Right arm Patient Position: HOB 30 degrees Pulse: 100 101 97 90 Resp: Temp: 36.8 ??C (98.2 ??F) TempSrc: Oral SpO2: 96% 98% 97% 96% Weight: Height: Vent settings: Hemodynamic parameters for last 24 hours: I/O: Date 10/08/23 07 - 10/09/2359 10/09/23 07 - 10/10/23 0659 Shift 24 Hour Total 24 Hour Total INTAKE P.O. 380 550 930 350 350 I.V.(mL/kg) 40(0.6) 40(0.6) 40(0.6) 40(0.6) IV Piggyback 40 40 20 20 Shift Total(mL/kg) 460(7.3) 550(8.7) 1010(16) 410(6.5) 410(6.5) OUTPUT Urine(mL/kg/hr) 275(0.4) 600(0.8) 875(0.6) 150 150 Chest Tube 50 10 60 0 0 Shift Total(mL/kg) 325(5.1) 610(9.6) 935(14.8) 150(2.4) 150(2.4) NET 135 -60 75 260 260 Weight (kg) 63.3 63.3 63.3 63.3 63.3 63.3 Physical Exam: General: NAD, awake, alert, resting. Jaundiced, at baseline. Friendly. HEENT: NCAT. MMM. Lungs: Unlabored on RA. No dyspnea with conversation or exam. CTAB in anterior bai. Chest tube in place, draining serosanguinous. Cardiovascular: NSR on telemetry. RRR, normal S1 and S2, no murmurs/rubs/gallops. GI: Soft, NT/ND. No HSM or masses. Skin: No concerning rashes, lesions or bruises on exposed skin. Jaundiced as above. Extremities: Normal without edema or cyanosis. WWP. Neurologic: Alert and oriented to interview, recent and remote personal history, setting. No reported or observed focal motor or sensory neurologic deficits to gross exam. Psychiatric: Low mood with mood-syntonic affect, appropriate for setting and thought content. LABORATORY DATA Recent Results (from the past 24 hour(s)) Mycology (fungal) culture and stain Pleural fluid Chest Collection Time: 10/08/23 1:16 PM Specimen: Chest; Pleural fluid Result Value Ref Range Report Preliminary Report: No growth of fungus to date Basic metabolic panel Collection Time: 10/08/23 8:28 PM Result Value Ref Range Sodium 133 (L) 135 - 145 mmol/L Potassium, pl 5.2 (H) 3.3 - 4.9 mmol/L Chloride 107 97 - 110 mmol/L CO2 17 (L) 22 - 32 mmol/L Anion gap 9 2 - 15 mmol/L BUN 37 (H) 6 - 25 mg/dL Creatinine 0.91 0.80 - 1.30 mg/dL Glucose 157 70 - 199 mg/dL Calcium 7.4 (L) 8.5 - 10.3 mg/dL eGFR Collection Time: 10/08/23 8:28 PM Result Value Ref Range eGFR >90 >=60 mL/min/1.73 m2 Phosphorus Collection Time: 10/09/23 4:47 AM Result Value Ref Range Phosphorus, pl 3.2 2.3 - 4.5 mg/dL Magnesium Collection Time: 10/09/23 4:47 AM Result Value Ref Range Magnesium 2.0 1.4 - 2.5 mg/dL Basic metabolic panel Collection Time: 10/09/23 4:47 AM Result Value Ref Range Sodium 134 (L) 135 - 145 mmol/L Potassium, pl 5.2 (H) 3.3 - 4.9 mmol/L Chloride 106 97 - 110 mmol/L CO2 18 (L) 22 - 32 mmol/L Anion gap 10 2 - 15 mmol/L BUN 45 (H) 6 - 25 mg/dL Creatinine 1.11 0.80 - 1.30 mg/dL Glucose 99 70 - 199 mg/dL Calcium 7.7 (L) 8.5 - 10.3 mg/dL CBC without differential Collection Time: 10/09/23 4:47 AM Result Value Ref Range WBC 13.6 (H) 3.8 - 9.9 K/cumm Hgb 10.6 (L) 13.0 - 17.5 g/dL Hct 27.5 (L) 38.9 - 50.3 % Plt 246 150 - 400 K/cumm MPV 11.4 9.1 - 12.3 fL RBC 2.71 (L) 4.30 - 5.80 M/cumm MCV 101.5 (H) 81.3 - 96.4 fL MCH 39.1 (H) 27.1 - 33.3 pg MCHC 38.5 (H) 32.3 - 35.7 g/dL RDW CV 17.2 (H) 11.1 - 14.9 % RDW SD 62.9 (H) 35.7 - 48.1 fL NRBC abs 0.00 0.00 - 0.01 K/cumm Potassium, whole blood Collection Time: 10/09/23 4:47 AM Result Value Ref Range Potassium, bld 4.9 3.3 - 4.9 mmol/L eGFR Collection Time: 10/09/23 4:47 AM Result Value Ref Range eGFR >90 >=60 mL/min/1.73 m2 Micro: Lab Results Component Value Date MICROBIOLOGY Preliminary Report: No growth of fungus to date 10/08/2023 MICROBIOLOGY Preliminary Report: No growth of fungus to date 10/07/2023 MICROBIOLOGY Final Report: Negative 10/03/2023 MICROBIOLOGY Preliminary Report: No growth to date. 10/03/2023 MICROBIOLOGY Final Report: This is the final report. (.) 10/03/2023 Imaging Results: XR Chest 1 View Narrative: EXAMINATION: 1 view chest radiograph Impression: The current study is compared with the prior radiograph dated 10/08/2023 1:57 AM. Right basilar pleural catheter remains in place. Surgical clips project over the right upper quadrant and left upper quadrant. The cardiomediastinal silhouette is partially obscured but grossly stable. Small to moderate left pleural effusion with associated moderate left basilar atelectasis, similar to slightly increased compared to the prior examination. Unchanged small right pleural effusion with associated mild right basilar atelectasis. No pulmonary edema. No pneumothorax. Dictated by: Jason Gonzales MD The radiology attending physician has personally reviewed this study, and had reviewed and/or edited this written report and agrees with it. Electronically signed by: Darcy Jimenez M.D. Assessment/Plan Beka Lares is a 28 y.o. 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 #Acute Hypoxemic Respiratory Failure #Parapneumonic Effusion Likely 2/2 pneumonia, RPP positive for Rhino/Entero. CXR w/ moderate R sided pleural effusion, R airspace opacity possibly pneumonia and atelectasis. S/p thoracentesis in the ED, consistent with a parapneumonic effusion. CT Chest w/ and w/o contrast s/p thoracentesis with partially loculated moderate R and trace L pleural effusions, increased peribronchovascular consolidation and increased smoothinterlobular septal line thickening w/ superimposed pulmonary edema and possibly infectious pneumonia. Endemic mycoses work-up negative. 10/03-10/04 thoracentesis leukemia/lymphoma flow, cytology negative. Patient initially required supplemental O2 this admission which has been de-escalated to RA. 10/04 Galactomannan 0.67, though low clinical suspicion for fungal pneumonia. - ID c/s, recs appreciated: --- f/u 10/07 mold culture, repeat galactomannan --- send pleural fluid for fungal culture only - cefepime for total 7d course (10/03-10/10) - s/p vancomycin (10/03-10/04), azithromycin (10/04-10/05) - Duonebs q4h prn - s/p thoracentesis 10/03, 10/04, chest tube placement 10/04 --- will pull chest tube 10/07 prior to transfer or 10/08 if patient remains in ICU - Diuresis as below - IS, Aerobika, OOBTC #Back Pain, resolved Likely muscular in nature and iso parapneumonic effusion, Lumbar MRI negative for OM/spinal epidural abscess - Lidocaine patches - prn methyl salicylate-menthol cream - s/p 10mg cyclobenzaprine TID prn, 5mg oxycodone q6h prn (DC'd since no use in 24 hr) - Manage conservatively #Liver Transplant 03/1999 c/b PTLD (c-Myc, EBV+) #Autoimmune Hepatitis #CMV Viremia: S/p OLT '99 c/b PTLD diagnosed in 2016, last chemo in 2018 w/ history of long- term CMV viremia. He has had varying degrees of CMV since 2019 and is followed by Dr. Duncan in the ID clinic. He was recently on Maribavir, switched to Foscarnet (EOT 09/07) and Valcyte as he had heterogenous CMV w/ varying resistant types during most recent admission 08/2023, levels stable this admission. Current home medications are Tacrolimus 0.5mg q48h, Valganciclovir 900mg BID, Ursodiol 600mg daily, Letermovir 480mg, Aldactone 50mg, Lasix 20mg. - Continue tacrolimus 0.5mg q48h, follow troughs - Continue ursodiol 600mg daily - Continue valganciclovir 900mg BID - Continue letermovir 480mg daily - Continue home lasix 20mg daily; could escalate to BID for FBG NN 0.5-1L - Holding home aldactone 50mg daily given high normal K and prior hyperkalemia - Hepatology following, appreciate recs - plan for 30g IVIG 10/09 (requested by Onc) #WATSON Cr peaked to 1.44 from baseline of 0.8-1.1, now at baseline. Suspect hypovolemia - Diuresis as above #ITP s/p Splenectomy 2012 On IVIG q4-6 weeks, most recently received 08/31/23. - IVIG 500mg/kg (30g) requested by Onc, planned 10/09 #Superficial VTE Noted in LUE during previous admission. Dispo: ICU Code Status: Full Code F (Feeding) : Adult Diet Regular A (Analgesia) : NA S (Sedation) : NA T (Thromboembolic) ppx: enoxaparin 40mg daily H (Head of Bed Elevation): Goal: 30 if intubated. Last charted: Patient Position: HOB 30 degrees U (stress Ulcer ppx) : NA G (Glycemic control) : SSI if BG>180 Last BM : Stool Occurrence Amount: Medium (10/09/23 1000) Contact : Primary Emergency Contact: Héctor Lares Attending MD to make comment on patient risk/complexity. Wendy Bonds MD PhD Resident Physician, Internal Medicine Cosigned by Amaris James MD at 10/09/2023 3:36 PM MATHEMATICIAN RESEARCH EMATICIAN RESEARCH EMATICIAN RESEARCH Associated attestation - Amaris James MD - 10/09/2023 3:36 PM MATHEMATICIAN RESEARCH Critical Care Time: I have spent 31 minutes in full attendance with this critically ill patient making frequent reassessments and decisions regarding this patient's complex medical care. Critical care time was exclusive of separately billable procedures, treating other patients and teaching time. Critical care was necessary to treat or prevent imminent or life-threatening deterioration of the following conditions: 1. R pleural effusion 2. Serum galactomannin positive 3. S/P liver tx 4. ITP My Assessment and Plan: 1. R pleural effusion: chest tube to water seal, follow CXR. 2. Serum galactomannin positive: ID following, repeat studies pending. 3. S/P liver tx: immunosuppression per liver tx team. 4. ITP: Onc following, would like IVIg today. Stable to transfer out of ICU. Attending Documentation: No acute events. Patient wants a room with a window. I have seen and examined this patient on the day of service. I have reviewed and confirmed the history, physical exam, laboratory and radiographic data with the house staff as documented in the ICU resident note. I have reviewed and discussed my treatment plan with the ICU team and other medical/consultant teacher staff. * Alexsandra Mack, RD - 10/08/2023 8:58 AM CST Nutrition Screen Note Pt. Screened for nutritional [...] NODE SUPERFICIAL LEFT N/A 10/07/2021 Anthropometrics Weight: 63.3 kg (139 lb 8.8 oz) Admission Weight : 63.3 kg Weight Change: 2.06 kg (4.55 lbs) IBW/kg (Calculated) : 69.8 kg Height: 172.7 cm (5' 7.99 ) BMI Amputation Adjustment: No Weight in (lb) to have BMI = 25: 164 BMI (Calculated): 21.2 Adult Malnutrition Scoring Tool (MST) What diet do you follow at home?: regular Have You Recently Lost Weight Without Trying?: No Have you been eating poorly because of a decreased appetite?: No Malnutrition Screening Tool (MST) Score: 0 Dietary Orders (From admission, onward) Start Ordered 10/04/231835 Adult Diet Regular Diet effective now Question: ([facility]) Diet type Answer: Regular 10/04/235 10/04/231835 Late Tray Diet Once (Routine) 10/04/231835 Assessment / Impression: Patient has a good appetite, eating about 50% of his meals. Patient was 157 lbs on standing scale when he was discharged from hospital in September, states maybe he lost weight but thinks when he is 150-160 lbs that is due to fluid. Patient now weighs 138 lbs, concerned for u nintentional weight loss but unclear what is fluid related. Patient has a good appetite. Patient isnot able to take his orders in ICU, RD took food preferences (no sausage, no eggs, grapes only etc). Patient does not want ensures or boost at this time. Continue to monitor weight history, patient appears at high risk for malnutrition. EMATICIAN RESEARCH * Wendy Bonds MD PhD - 10/08/2023 8:46 AM CST [facility] Progress Note Name: Beka Lares Today: October 08, 2023 : 1995 Age: 28 y.o. male Admit: 10/03/2023 Bed: [id number] LOS: 5 days Identifying Information: Beka Lares is a 28 y.o. 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 Admitted 10/03/2023 7:58 AM, in ICU for 4d 11h. Subjective Interval - Galactomannan 0.67, weakly positive per ID. Mold blood cx, repeat galactomannan obtained per recs - Afebrile, HDS, rarely tachypneic to 31. SpO2>93% on RA - Endorses mild lower abdominal pain this AM, c/f possible urinary retention - 5x stool in 24h Plan - FBG NN 500 to 1L - Obtain fungal cx from pleural fluid per ID - Hold bowel reg - Bladder scan, ISC if >350mL - Chest tube stays in until prelim fungal studies result - plan for 30g IVIG 10/09 (requested by Onc) Lines: Peripheral IV 10/03/23 20 G Anterior;Distal;Left;Upper Arm (Active) Peripheral IV 10/07/23 22 G Anterior;Proximal;Right Forearm;Arm (Active) Chest Tube Right (Active) MEDICATIONS Scheduled Meds PRN Meds Infusions cefepime, 2,000 mg, intravenous, Q8H PIPPA enoxaparin, 40 mg, subcutaneous, Daily-2100 furosemide, 20 mg, oral, Daily letermovir, 480 mg, oral, Daily lidocaine, 1 patch, transdermal, Q24H polyethylene glycol, 17 g, oral, Daily sodium chloride 0.9%, 0.5-20 mL, intra-catheter, Q8H PIPPA [Held by Provider] spironolactone, 50 mg, oral, Daily tacrolimus, 0.5 mg, oral, Every other day ursodioL, 600 mg, oral, Daily with dinner valGANciclovir, 900 mg, oral, BID sodium chloride 0.9%, 30 mL, PRN ipratropium-albuteroL, 3 mL, Q4H PRN (RT) methyl salicylate-menthol, , QID PRN ondansetron, 4 mg, Q6H PRN oxyCODONE, 5 mg, Q6H PRN sodium chloride 0.9%, 0.5-20 mL, PRN Objective Vitals: The patient's height is 172.7 cm (5' 7.99 ) and weight is 63.3 kg (139 lb 8.8 oz). His oral temperature is 36.6 ??C (97.9 ??F). His blood pressure is 118/63 and his pulse is 98. His respiration is 25and oxygen saturation is 96%. Vitals: 10/07/23 2300 10/08/23 0000 10/08/23 0400 10/08/23 0800 BP: 121/61 119/62 118/63 BP Location: Right arm Right arm Right arm Patient Position: Lying;HOB 30 degrees Lying;HOB 30 degrees HOB 30 degrees Pulse: 115 93 100 98 Resp: 25 24 27 25 Temp: 36.9 ??C (98.4 ??F) 36.7 ??C (98.1 ??F) 36.6 ??C (97.9 ??F) TempSrc: Oral Oral Oral SpO2: 93% 95% 95% 96% Weight: Height: Vent settings: Hemodynamic parameters for last 24 hours: I/O: Date 10/07/23699 - 10/08/2365810/08/23699 - 10/09/2359 Shift 3561-5615 6954-2817 24 Hour Total 5610-6153 0242-2464 24 Hour Total INTAKE P.O. 240 440 680 I.V.(mL/kg) 20(0.3) 20(0.3) Shift Total(mL/kg) 240(3.8) 440(7) 680(10.7) 20(0.3) 20(0.3) OUTPUT Urine(mL/kg/hr) 175(0.2) 500(0.7) 675(0.4) 0 0 Chest Tube 100 60 160 0 0 Shift Total(mL/kg) 275(4.3) 560(8.8) 835(13.2) 0(0) 0(0) NET -35 -120 -155 20 20 Weight (kg) 63.3 63.3 63.3 63.3 63.3 63.3 Physical Exam: General: NAD, awake, alert, resting. Nurse at bedside getting blood draw. Jaundiced, at baseline. HEENT: NCAT. MMM. Lungs: Unlabored on RA. No dyspnea with conversation or exam. CTAB in anterior bai. Chest tube in place, draining serosanguinous. Cardiovascular: NSR on telemetry. RRR, normal S1 and S2, no murmurs/rubs/gallops. GI: Soft, NT/ND. No HSM or masses. Skin: No concerning rashes, lesions or bruises on exposed skin. Jaundiced as above. Extremities: Normal without edema or cyanosis. WWP. Neurologic: Alert and oriented to interview, setting. No reported or observed focal motor or sensory neurologic deficits to gross exam. Psychiatric: Neutral mood with mood-syntonic affect. LABORATORY DATA Recent Results (from the past 24 hour(s)) Mold Blood Culture Blood Collection Time: 10/07/23 9:11 PM Specimen: Blood Result Value Ref Range Report Preliminary Report: No growth of fungus to date Phosphorus Collection Time: 10/08/23 5:44 AM Result Value Ref Range Phosphorus, pl 3.0 2.3 - 4.5 mg/dL Magnesium Collection Time: 10/08/23 5:44 AM Result Value Ref Range Magnesium 2.1 1.4 - 2.5 mg/dL Basic metabolic panel Collection Time: 10/08/23 5:44 AM Result Value Ref Range Sodium 135 135 - 145 mmol/L Potassium, pl 6.1 (H) 3.3 - 4.9 mmol/L Chloride 107 97 - 110 mmol/L CO2 17 (L) 22 - 32 mmol/L Anion gap 11 2 - 15 mmol/L BUN 36 (H) 6 - 25 mg/dL Creatinine 0.88 0.80 - 1.30 mg/dL Glucose 113 70 - 199 mg/dL Calcium 7.7 (L) 8.5 - 10.3 mg/dL CBC without differential Collection Time: 10/08/23 5:44 AM Result Value Ref Range WBC 12.3 (H) 3.8 - 9.9 K/cumm Hgb 11.1 (L) 13.0 - 17.5 g/dL Hct 29.1 (L) 38.9 - 50.3 % Plt 235 150 - 400 K/cumm MPV 11.4 9.1 - 12.3 fL RBC 2.88 (L) 4.30 - 5.80 M/cumm MCV 101.0 (H) 81.3 - 96.4 fL MCH 38.5 (H) 27.1 - 33.3 pg MCHC 38.1 (H) 32.3 - 35.7 g/dL RDW CV 17.2 (H) 11.1 - 14.9 % RDW SD 62.4 (H) 35.7 - 48.1 fL NRBC abs 0.00 0.00 - 0.01 K/cumm Potassium, whole blood Collection Time: 10/08/23 5:44 AM Result Value Ref Range Potassium, bld 5.7 (H) 3.3 - 4.9 mmol/L eGFR Collection Time: 10/08/23 5:44 AM Result Value Ref Range eGFR >90 >=60 mL/min/1.73 m2 Potassium, whole blood Collection Time: 10/08/23 7:49 AM Result Value Ref Range Potassium, bld 4.7 3.3 - 4.9 mmol/L Micro: Lab Results Component Value Date MICROBIOLOGY Preliminary Report: No growth of fungus to date 10/07/2023 MICROBIOLOGY Final Report: Negative 10/03/2023 MICROBIOLOGY Preliminary Report: No growth to date. 10/03/2023 MICROBIOLOGY Final Report: This is the final report. (.) 10/03/2023 MICROBIOLOGY Final Report: No growth 10/03/2023 MICROBIOLOGY Final Report: No growth 10/03/2023 Imaging Results: XR Chest 1 View Narrative: EXAMINATION: 1 view chest radiograph Impression: The current study is compared with the prior radiograph dated 10/06/2023. Right chest tube. Surgical clips project over the upper abdomen. Stable small right pleural effusion and moderate left pleural effusion with associated atelectasis in the lung bases. No pneumothorax. The cardiomediastinal silhouette is obscured but overall appears unchanged. Dictated by: Deshawn Jaramillo MD The radiology attending physician has personally reviewed this study, and had reviewed and/or edited this written report and agrees with it. Electronically signed by: Jena Peters M.D. Assessment/Plan Beka Lares is a 28 y.o. 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 #Acute Hypoxemic Respiratory Failure #Parapneumonic Effusion Likely 2/2 pneumonia, RPP positive for Rhino/Entero. CXR w/ moderate R sided pleural effusion, R airspace opacity possibly pneumonia and atelectasis. S/p thoracentesis in the ED, consistent with a parapneumonic effusion. CT Chest w/ and w/o contrast s/p thoracentesis with partially loculated moderate R and trace L pleural effusions, increased peribronchovascular consolidation and increased smoothinterlobular septal line thickening w/ superimposed pulmonary edema and possibly infectious pneumonia. Endemic mycoses work-up negative. 10/03-10/04 thoracentesis leukemia/lymphoma flow, cytology negative. Patient initially required supplemental O2 this admission which has been de-escalated to RA. 10/04 Galactomannan 0.67, though low clinical suspicion for fungal pneumonia. - ID c/s, recs appreciated: --- f/u 10/07 mold culture, repeat galactomannan --- send pleural fluid for fungal culture only - cefepime for total 7d course (10/03-10/10) - s/p vancomycin (10/03-10/04), azithromycin (10/04-10/05) - Duonebs q4h prn - s/p thoracentesis 10/03, 10/04, chest tube placement 10/04 --- will pull chest tube 10/07 prior to transfer or 10/08 if patient remains in ICU - Diuresis as below - IS, Aerobika, OOBTC #Back Pain, resolved Likely muscular in nature and iso parapneumonic effusion, Lumbar MRI negative for OM/spinal epidural abscess - Lidocaine patches - prn methyl salicylate-menthol cream - s/p 10mg cyclobenzaprine TID prn, 5mg oxycodone q6h prn (DC'd since no use in 24 hr) - Manage conservatively #Liver Transplant 03/1999 c/b PTLD (c-Myc, EBV+) #Autoimmune Hepatitis #CMV Viremia: S/p OLT ' c/b PTLD diagnosed in 2016, last chemo in 2018 w/ history of long- term CMV viremia. He has had varying degrees of CMV since 2019 and is followed by Dr[address] Duncan in the ID clinic. He was recently on Maribavir, switched to Foscarnet (EOT 09/07) and Valcyte as he had heterogenous CMV w/ varying resistant types during most recent admission 08/2023, levels stable this admission. Current home medications are Tacrolimus 0.5mg q48h, Valganciclovir 900mg BID, Ursodiol 600mg daily, Letermovir 480mg, Aldactone 50mg, Lasix 20mg. - Continue tacrolimus 0.5mg q48h, follow troughs - Continue ursodiol 600mg daily - Continue valganciclovir 900mg BID - Continue letermovir 480mg daily - Continue home lasix 20mg daily; could escalate to BID for FBG NN 0.5-1L - Holding home aldactone 50mg daily given high normal K and prior hyperkalemia - Hepatology following, appreciate recs - plan for 30g IVIG 10/09 (requested by Onc) #WATSON Cr peaked to 1.44 from baseline of 0.8-1.1, now at baseline. Suspect hypovolemia - Diuresis as above #ITP s/p Splenectomy 2013 On IVIG q4-6 weeks, most recently received 08/31/23. #Superficial VTE Noted in LUE during previous admission. Dispo: ICU Code Status: Full Code F (Feeding) : Adult Diet Regular A (Analgesia) : NA S (Sedation) : NA T (Thromboembolic) ppx: enoxaparin 40mg daily H (Head of Bed Elevation): Goal: 30 if intubated. Last charted: Patient Position: HOB 30 degrees U (stress Ulcer ppx) : NA G (Glycemic control) : SSI if BG>180 Last BM : Stool Occurrence Amount: Medium (10/08/23 0600) Contact : Primary Emergency Contact: Héctor Lares Attending MD to make comment on patient risk/complexity. Wendy Bonds MD PhD Resident Physician, Internal Medicine Cosigned by Lisandra Harper MD at 10/17/2023 8:14 AM MATHEMATICIAN RESEARCH EMATICIAN RESEARCH EMATICIAN RESEARCH EMATICIAN RESEARCH EMATICIAN RESEARCH Associated attestation - Lisandra Harper MD - 10/17/2023 8:14 AM MATHEMATICIAN RESEARCH Attending Documentation I have seen and examined the patient on 10/08/23. I agree with the findings and plan of care as documented in the resident's/fellow's note. Supplementary Attestation Today, I am treating the patient for acute hypoxemic respiratory failure, pleural effusion which isin moderate exacerbation, progression, or experiencing treatment side effects as evidenced by need for supplemental oxygen, drainage of pleural space with chest tube, as described in the note. Lisandra Harper MD * Wendy Bonds MD PhD - 10/07/2023 12:29 PM CST MICU Daily Progress Note Name: Beka Lares Today: October 07, 2023 : 1995 Age: 28 y.o. male Admit: 10/03/2023 Bed: [id number] LOS: 4 days Identifying Information: Beka Lares is a 28 y.o. 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 Admitted 10/03/2023 7:58 AM, in ICU for 3d 15h. Subjective Interval - Afebrile, HDS. SpO2>94% on 1LNC, now weaned to RA. I/O -845mL w/2x stools - Chest tube with 140mL out yesterday>100mL out today - Leukemia/lymphoma, cytology on thoracentesis and Histo negative - Patient feeling well this morning, improved breathing and without chest pain. - Hyperkalemic on hemolyzed labs, whole blood K 4.7 Plan - Cefepime for 7d course - FBG even on home lasix; holding spironolactone given prior hyperkalemia and upper normal K - IS, Aerobika, OOBTC - TTF. ICU to pull chest tube prior to transfer if floor bed available. Otherwise, pull chest tube 10/08. Lines: Peripheral IV 10/03/23 20 G Anterior;Distal;Left;Upper Arm (Active) Chest Tube Right (Active) MEDICATIONS Scheduled Meds PRN Meds Infusions cefepime, 2,000 mg, intravenous, Q8H PIPPA enoxaparin, 40 mg, subcutaneous, Daily-2100 furosemide, 20 mg, oral, Daily letermovir, 480 mg, oral, Daily lidocaine, 1 patch, transdermal, Q24H polyethylene glycol, 17 g, oral, Daily sodium chloride 0.9%, 0.5-20 mL, intra-catheter, Q8H PIPPA [Held by Provider] spironolactone, 50 mg, oral, Daily tacrolimus, 0.5 mg, oral, Every other day ursodioL, 600 mg, oral, Daily with dinner valGANciclovir, 900 mg, oral, BID sodium chloride 0.9%, 30 mL, PRN cyclobenzaprine, 10 mg, TID PRN ipratropium-albuteroL, 3 mL, Q4H PRN (RT) methyl salicylate-menthol, , QID PRN ondansetron, 4 mg, Q6H PRN oxyCODONE, 5 mg, Q6H PRN sodium chloride 0.9%, 0.5-20 mL, PRN Objective Vitals: The patient's height is 172.7 cm (5' 7.99 ) and weight is 63.3 kg (139 lb 8.8 oz). His oral temperature is 36.9 ??C (98.5 ??F). His blood pressure is 108/60 and his pulse is 94. His respiration is 24and oxygen saturation is 94%. Vitals: 10/07/23 1000 10/07/23 1100 10/07/23 1145 10/07/23 1200 BP: 108/60 BP Location: Right arm Patient Position: Lying Pulse: 96 95 90 94 Resp: 30 23 23 24 Temp: 36.9 ??C (98.5 ??F) TempSrc: Oral SpO2: 95% 95% 96% 94% Weight: Height: Vent settings: Hemodynamic parameters for last 24 hours: I/O: Date 10/06/23699 - 10/07/2365810/07/23699 - 10/08/23658 Shift 4822-9033 4489-9307 24 Hour Total 3347-7305 6631-4269 24 Hour Total INTAKE P.O. 593 194 6078 240 240 IV Piggyback 20 20 Shift Total(mL/kg) 660(10.4) 520(8.2) 1180(18.6) 240(3.8) 240(3.8) OUTPUT Urine(mL/kg/hr) 1200(1.6) 725(1) 1925(1.3) 50 50 Chest Tube 40 60 100 80 80 Shift Total(mL/kg) 1240(19.6) 785(12.4) 202(32) 130(2.1) 130(2.1) [facility] -603 -676 -476 110 110 Weight (kg) 63.3 63.3 63.3 63.3 63.3 63.3 Physical Exam: General: NAD, awake, alert, resting. HEENT: NCAT. MMM. Lungs: Unlabored on 1L NC, later on RA. No dyspnea with conversation or exam. Improved clarity to auscultation in bilateral anterior and posterior lung bai with only mild ronchi throughout. Again with diminished breath sounds at the bases. Chest tube in place, dressing c/d/I, draining serosanguinous. Cardiovascular: NSR on telemetry. RRR, normal S1 and S2, no murmurs/rubs/gallops. GI: Soft, NT/ND. No HSM or masses. Skin: No concerning rashes, lesions or bruises on exposed skin. Jaundiced as above. Extremities: Normal without edema or cyanosis. WWP. Neurologic: Alert and oriented to interview, setting. No reported or observed focal motor or sensory neurologic deficits to gross exam. Psychiatric: Neutral mood with mood-syntonic affect. LABORATORY DATA Recent Results (from the past 24 hour(s)) Phosphorus Collection Time: 10/07/23 4:43 AM Result Value Ref Range Phosphorus, pl 3.0 2.3 - 4.5 mg/dL Magnesium Collection Time: 10/07/23 4:43 AM Result Value Ref Range Magnesium 2.2 1.4 - 2.5 mg/dL Basic metabolic panel Collection Time: 10/07/23 4:43 AM Result Value Ref Range Sodium 132 (L) 135 - 145 mmol/L Potassium, pl 5.8 (H) 3.3 - 4.9 mmol/L Chloride 104 97 - 110 mmol/L CO2 20 (L) 22 - 32 mmol/L Anion gap 8 2 - 15 mmol/L BUN 40 (H) 6 - 25 mg/dL Creatinine 1.00 0.80 - 1.30 mg/dL Glucose 99 70 - 199 mg/dL Calcium 7.8 (L) 8.5 - 10.3 mg/dL CBC without differential Collection Time: 10/07/23 4:43 AM Result Value Ref Range WBC 10.5 (H) 3.8 - 9.9 K/cumm Hgb 10.7 (L) 13.0 - 17.5 g/dL Hct 27.6 (L) 38.9 - 50.3 % Plt 221 150 - 400 K/cumm MPV 11.8 9.1 - 12.3 fL RBC 2.67 (L) 4.30 - 5.80 M/cumm MCV 103.4 (H) 81.3 - 96.4 fL MCH 40.1 (H) 27.1 - 33.3 pg MCHC 38.8 (H) 32.3 - 35.7 g/dL RDW CV 17.0 (H) 11.1 - 14.9 % RDW SD 64.3 (H) 35.7 - 48.1 fL NRBC abs 0.00 0.00 - 0.01 K/cumm eGFR Collection Time: 10/07/23 4:43 AM Result Value Ref Range eGFR >90 >=60 mL/min/1.73 m2 Potassium, whole blood Collection Time: 10/07/23 8:24 AM Result Value Ref Range Potassium, bld 4.7 3.3 - 4.9 mmol/L Micro: Lab Results Component Value Date MICROBIOLOGY Final Report: Negative 10/03/2023 MICROBIOLOGY Preliminary Report: No growth to date. 10/03/2023 MICROBIOLOGY Final Report: This is the final report. (.) 10/03/2023 MICROBIOLOGY Final Report: No growth 10/03/2023 MICROBIOLOGY Final Report: No growth 10/03/2023 Imaging Results: XR Chest 1 View Narrative: EXAMINATION: 1 view chest radiograph Impression: The current study is compared with the prior radiograph dated 10/06/2023. Right chest tube. Surgical clips project over the upper abdomen. Stable small right pleural effusion and moderate left pleural effusion with associated atelectasis in the lung bases. No pneumothorax. The cardiomediastinal silhouette is obscured but overall appears unchanged. Dictated by: Deshawn Jaramillo MD The radiology attending physician has personally reviewed this study, and had reviewed and/or edited this written report and agrees with it. Electronically signed by: Jena Peters M.D. Assessment/Plan Beka Lares is a 28 y.o. 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 #Acute Hypoxemic Respiratory Failure #Parapneumonic Effusion Likely 2/2 pneumonia, RPP positive for Rhino/Entero. CXR w/ moderate R sided pleural effusion, R airspace opacity possibly pneumonia and atelectasis. S/p thoracentesis in the ED, consistent with a parapneumonic effusion. CT Chest w/ and w/o contrast s/p thoracentesis with partially loculated moderate R and trace L pleural effusions, increased peribronchovascular consolidation and increased smoothinterlobular septal line thickening w/ superimposed pulmonary edema and possibly infectious pneumonia. Endemic mycoses work-up negative. 10/03-10/04 thoracentesis leukemia/lymphoma flow, cytology negative. Patient initially required supplemental O2 this admission which has been de-escalated to RA. - cefepime for total 7d course (10/03-10/10) - s/p vancomycin (10/03-10/04), azithromycin (10/04-10/05) - Duonebs q4h prn - s/p thoracentesis 10/03, 10/04, chest tube placement 10/04 --- will pull chest tube 10/07 prior to transfer or 10/08 if patient remains in ICU - Diuresis as below - IS, Aerobika, OOBTC - f/u aspergillus #Back Pain Likely muscular in nature and iso parapneumonic effusion, Lumbar MRI negative for OM/spinal epidural abscess - Lidocaine patches - 10mg cyclobenzaprine TID prn - 5mg oxycodone q4h prn>q6h prn - Manage conservatively #Liver Transplant 03/1999 c/b PTLD (c-Myc, EBV+) #Autoimmune Hepatitis #CMV Viremia: S/p OLT ' c/b PTLD diagnosed in 2016, last chemo in 2017 w/ history of long- term CMV viremia. He has had varying degrees of CMV since 2019 and is followed by Dr[address] Duncan in the ID clinic. He was recently on Maribavir, switched to Foscarnet (EOT 09/07) and Valcyte as he had heterogenous CMV w/ varying resistant types during most recent admission 08/2023, levels stable this admission. Current home medications are Tacrolimus 0.5mg q48h, Valganciclovir 900mg BID, Ursodiol 600mg daily, Letermovir 480mg, Aldactone 50mg, Lasix 20mg. - Continue tacrolimus 0.5mg q48h, follow troughs - Continue ursodiol 600mg daily - Continue valganciclovir 900mg BID - Continue letermovir 480mg daily - Continue home lasix 20mg daily - Holding home aldactone 50mg daily given high normal K and prior hyperkalemia - Hepatology following, appreciate recs #WATSON Cr peaked to 1.44 from baseline of 0.8-1.1, now at baseline. Suspect hypovolemia - Diuresis as above #ITP s/p Splenectomy 2012 On IVIG q4-6 weeks, most recently received 08/31/23. #Superficial VTE Noted in LUE during previous admission. Dispo: ICU Code Status: Full Code F (Feeding) : Adult Diet Regular A (Analgesia) : NA S (Sedation) : NA T (Thromboembolic) ppx: enoxaparin 40mg daily H (Head of Bed Elevation): Goal: 30 if intubated. Last charted: Patient Position: Lying U (stress Ulcer ppx) : NA G (Glycemic control) : SSI if BG>180 Last BM : Stool Occurrence Amount: Medium (10/07/23 0730) Contact : Primary Emergency Contact: Héctor Lares Attending to make comment on patient risk/complexity. Wendy Bonds MD PhD Resident Physician, Internal Medicine Cosigned by Lisandra Harper MD at 10/17/2023 8:13 AM MATHEMATICIAN RESEARCH EMATICIAN RESEARCH EMATICIAN RESEARCH Associated attestation - Lisandra Harper MD - 10/17/2023 8:13 AM MATHEMATICIAN RESEARCH Attending Documentation I have seen and examined the patient on 10/07/23. I agree with the findings and plan of care as documented in the resident's/fellow's note. Supplementary Attestation Today, I am treating the patient for acute hypoxemic respiratory failure, pleural effusion which isin moderate exacerbation, progression, or experiencing treatment side effects as evidenced by need for oxygen supplementation and chest tube drainage of pleural space, as described in the note. Lisandra Harper MD * Lisandra Lora, PT - 10/07/2023 9:26 AM CST Physical Therapy Physical Therapy Progress Note NOTE: This is a summary note of the santana components of the treatment session. For full details, review chart for all flowsheets documented on by this physical therapy clinician on this date. Vital signs documented in vital signs flowsheet. Care plan progress documented in Care Plan Activity. For questions, please review the treatment team and contact the PT or OIL TANKER CAPTAIN currently assigned to this patient. If a physical therapy clinician is not assigned to this patient, please call [phone]. 10/07/23 0926 PT Last Visit Session Type Treatment PT Received On 10/07/23 Safe Environment Arm band checked;Patient found in supine;Gait belt not utilized, see comment (gait belt deferred due to chest tube) Subjective Agreeable to Therapy Family/Caregiver Present No Precautions Precautions Fall risk Pain Assessment Pain Assessment No/denies pain Bed Mobility 1 Bed Mobility From 1 Supine Bed Mobility Type 1 To Bed Mobility to 1 Edge of bed Level of Assistance 1 Distant Supervision Bed Mobility Comments 1 dist sup for safety Transfer 1 Transfer From 1 Sit Transfer Type 1 To and from Transfer to 1 Stand Technique 1 Sit to stand;Stand to sit Transfer Device 1 No device Transfer Level of Assistance 1 Distant supervision Trials/Comments 1 sup for safety Ambulation 1 Distance (ft) 1 150 (+ 100') Surface 1 Level tile Device 1 Other (comments) (w/c push) Other Apparatus 1 Wheelchair follow Assistance 1 Standby Assist Gait: Requires verbal cues to 1 Use assistive device safely;Improve upright posture;Pace activity Gait Deviations 1 Petty - decreased;Step length - decreased Ambulation Comments 1 1 seated rest break to complete; Pt initially ambulating on 1L via NC and needed to be titrated up to 3L during ambulation. Patient placed back on 1L at end of session. Basic Mobility - 6 Click How much difficulty does the patient have: Turning over in bed 3 How much difficulty does the patient currently have: Sitting down and standing up from a chair witharms? 3 How much difficulty does the patient have: Moving from lying on back to sitting on the side of the bed? 3 How much difficulty does the patient have: Moving to and from a bed to a chair including wheelchair? 3 How much help does the patient currently need: Walk in hospital room? 3 How much help from another person does the patient currently need: Climbing 3-5 steps with a railing? 3 Total 6 Click Score (range 6-24) 18 Score Interpretation 41.05 Safe Environment End of Therapy Session Safe Environment End of Therapy Session Patient left supine in bed;Call light within reach;Overbed table within reach Assessment Prognosis Good Problem List Gait deviations;Decreased strength;Decreased endurance;Impaired balance;Decreased mobility;Pain Barriers to Discharge None Plan Plan Continue with current plan;If this is the last note, consider this the discharge summary Recommendation/Plan PT Recommendation/Plan Home with family;Home with intermittent assist PT Frequency during current admission 3-5x/wk Treatment/Interventions during current admission Balance Training;Bed mobility;Endurance training;Functional activity;Functional transfer training;Gait training;Stair training;Strengthening;Therapeutic activity;Therapeutic exercise;Transfer training Progress during current admission Progressing toward goals PT - Next Appointment 10/11/23 PT - OK to Discharge No Multi-Disciplinary Problems (from Physical Therapy) Active Problems Problem: Mobility Start Date: 10/05/23 Goal Start Date Expected End Date End Date LTG - Patient will ambulate community distance 10/05/23 10/12/23 -- Goal Start Date Expected End Date End Date STG - Patient will ambulate 150' with no device and SBA 10/05/23 10/12/23 -- Goal Start Date Expected End Date End Date STG - Patient will ascend and descend 2 stairs with the following level of assist: SBA 10/05/23 10/12/23 -- Problem: PT Misc Start Date: 10/05/23 Goal Start Date Expected End Date End Date PT STG - Patient and caregivers will participate in and demonstrate understanding of therapeutic exercise and safe mobility strategies to improve independence with functional mobility. 10/05/23 10/12/23 -- EMATICIAN RESEARCH * Lisandra Lora, PT - 10/06/2023 10:20 AM CST Physical Therapy Physical Therapy Progress Note NOTE: This is a summary note of the santana components of the treatment session. For full details, review chart for all flowsheets documented on by this physical therapy clinician on this date. Vital signs documented in vital signs flowsheet. Care plan progress documented in Care Plan Activity. For questions, please review the treatment team and contact the PT or OIL TANKER CAPTAIN currently assigned to this patient. If a physical therapy clinician is not assigned to this patient, please call [phone]. 10/06/23 1020 PT Last Visit Session Type Treatment PT Received On 10/06/23 Safe Environment Arm band checked;Patient found in supine;Gait belt not utilized, see comment (gait belt deferred due to chest tube) Subjective Agreeable to Therapy Family/Caregiver Present No Pain Assessment Pain Assessment No/denies pain Cognition Arousal/Alertness Alert;Appropriate responses to stimuli Orientation Oriented X4 (person, place, time, situation) Following Commands Follows all commands and directions without difficulty Bed Mobility 1 Bed Mobility From 1 Supine Bed Mobility Type 1 To Bed Mobility to 1 Edge of bed Level of Assistance 1 Standby Assist Bed Mobility Comments 1 SBA for safety Transfer 1 Transfer From 1 Sit Transfer Type 1 To and from Transfer to 1 Stand Technique 1 Sit to stand;Stand to sit Transfer Device 1 No device Transfer Level of Assistance 1 Standby Assist Trials/Comments 1 SBA for safety Ambulation 1 Distance (ft) 1 100 (+ 200') Surface 1 Level tile Device 1 Other (comments) (w/c push) Other Apparatus 1 Wheelchair follow Assistance 1 Standby Assist Gait: Requires verbal cues to 1 Use assistive device safely;Pace activity Gait Deviations 1 Base of support - decreased;Petty - decreased;Step length - decreased Ambulation Comments 1 1 seated rest break; Pt initially ambulating on 1L via NC then desat to 85% and was titrated up to 2L via NC. SpO2 remained > 90% while ambulating on 2L. RLE Assessment RLE Assessment WFL LLE Assessment LLE Assessment WFL Basic Mobility - 6 Click How much difficulty does the patient have: Turning over in bed 3 How much difficulty does the patient currently have: Sitting down and standing up from a chair witharms? 3 How much difficulty does the patient have: Moving from lying on back to sitting on the side of the bed? 3 How much difficulty does the patient have: Moving to and from a bed to a chair including wheelchair? 3 How much help does the patient currently need: Walk in hospital room? 3 How much help from another person does the patient currently need: Climbing 3-5 steps with a railing? 3 Total 6 Click Score (range 6-24) 18 Score Interpretation 41.05 Safe Environment End of Therapy Session Safe Environment End of Therapy Session Patient left in chair Assessment Prognosis Good Problem List Gait deviations;Decreased strength;Decreased endurance;Impaired balance;Decreased mobility Barriers to Discharge None Plan Plan Continue with current plan;If this is the last note, consider this the discharge summary Recommendation/Plan PT Recommendation/Plan Home with family;Home with intermittent assist;Outpatient PT PT Frequency during current admission 3-5x/wk Treatment/Interventions during current admission Balance Training;Bed mobility;Endurance training;Functional transfer training;Functional activity;Gait training;Stair training Progress during current admission Progressing toward goals PT - Next Appointment 10/07/23 Multi-Disciplinary Problems (from Physical Therapy) Active Problems Problem: Mobility Start Date: 10/05/23 Goal Start Date Expected End Date End Date LTG - Patient will ambulate community distance 10/05/23 10/12/23 -- Goal Start Date Expected End Date End Date STG - Patient will ambulate 150' with no device and SBA 10/05/23 10/12/23 -- Goal Start Date Expected End Date End Date STG - Patient will ascend and descend 2 stairs with the following level of assist: SBA 10/05/23 10/12/23 -- Problem: Transfers Start Date: 10/05/23 Goal Start Date Expected End Date End Date STG - Transfer from bed to chair with Sup 10/05/23 10/12/23 -- Goal Start Date Expected End Date End Date STG - Patient to transfer to and from sit to supine with Sup 10/05/23 10/12/23 -- Goal Start Date Expected End Date End Date STG - Patient will transfer sit to and from stand with Sup 10/05/23 10/12/23 -- Problem: PT Misc Start Date: 10/05/23 Goal Start Date Expected End Date End Date PT STG - Patient and caregivers will participate in and demonstrate understanding of therapeutic exercise and safe mobility strategies to improve independence with functional mobility. 10/05/23 10/12/23 -- EMATICIAN RESEARCH * Wendy Bonds MD PhD - 10/06/2023 9:18 AM CST MICU Daily Progress Note Name: Beka Larse Today: October 06, 2023 : 1995 Age: 28 y.o. male Admit: 10/03/2023 Bed: [id number] LOS: 3 days Identifying Information: Beka Lares is a 28 y.o. 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 Admitted 10/03/2023 7:58 AM, in ICU for 2d 11h. Subjective Interval - Afebrile, HDS. Intermittently tachypneic to high 30s - SpO2 92-97% on 1L NC. I/O: +377 - CXR stable though difficult to assess with patient positioning. L-sided pleural effusion vs atelectasis - Endemic mycoses work-up negative, aspergillus pending - This AM, with improved WOB and with post-tussive chest pain (stable). Continued serosanguinous output into chest tube, 180 cc as of this AM Plan - Cefepime for 7d course - Resume home lasix, FBG even - Start bowel reg - Wean O2 AT, pulm toilet - TTF, IP team should be aware if he has chest tube at time of transfer - OOBTC Lines: Peripheral IV 10/03/23 20 G Anterior;Distal;Left;Upper Arm (Active) Peripheral IV 10/03/23 20 G Anterior;Left Forearm (Active) Chest Tube Right (Active) MEDICATIONS Scheduled Meds PRN Meds Infusions cefepime, 2,000 mg, intravenous, Q8H PIPPA enoxaparin, 40 mg, subcutaneous, Daily-2100 furosemide, 20 mg, oral, Daily letermovir, 480 mg, oral, Daily lidocaine, 1 patch, transdermal, Q24H polyethylene glycol, 17 g, oral, Daily sodium chloride 0.9%, 0.5-20 mL, intra-catheter, Q8H PIPPA [Held by Provider] spironolactone, 50 mg, oral, Daily tacrolimus, 0.5 mg, oral, Every other day ursodioL, 600 mg, oral, Daily with dinner valGANciclovir, 900 mg, oral, BID sodium chloride 0.9%, 30 mL, PRN cyclobenzaprine, 10 mg, TID PRN ipratropium-albuteroL, 3 mL, Q4H PRN (RT) methyl salicylate-menthol, , QID PRN ondansetron, 4 mg, Q6H PRN oxyCODONE, 5 mg, Q4H PRN sodium chloride 0.9%, 0.5-20 mL, PRN Objective Vitals: The patient's height is 172.7 cm (5' 7.99 ) and weight is 63.3 kg (139 lb 8.8 oz). His oral temperature is 36.9 ??C (98.5 ??F). His blood pressure is 122/55 and his pulse is 99. His respiration is 22and oxygen saturation is 95%. Vitals: 10/06/23 0500 10/06/23 0600 10/06/23 0700 10/06/23 0800 BP: 105/57 117/56 110/62 122/55 BP Location: Right arm Right arm Right arm Patient Position: HOB 30 degrees HOB 30 degrees Lying;HOB 30 degrees Pulse: 100 94 98 99 Resp: 27 20 29 22 Temp: 36.9 ??C (98.5 ??F) TempSrc: Oral SpO2: 94% 95% 96% 95% Weight: Height: Vent settings: Hemodynamic parameters for last 24 hours: I/O: Date 10/05/23 07 - 10/06/23 0610/06/23699 - 10/07/2359 Shift [id number] 24 Hour Total 4782-9023 7418-1002 24 Hour Total INTAKE P.O. 5518 531 4908 I.V.(mL/kg) 10(0.2) 10(0.2) IV Piggyback 40 20 60 Shift Total(mL/kg) 1612(25.5) 170(2.7) 1782(28.2) OUTPUT Urine(mL/kg/hr) 775(1) 450(0.6) 1225(0.8) 525 525 Chest Tube 150 30 180 10 10 Shift Total(mL/kg) 925(14.6) 480(7.6) 1405(22.2) 535(8.5) 535(8.5) NET 215 -273 289 -862 -397 Weight (kg) 63.3 63.3 63.3 63.3 63.3 63.3 Physical Exam: General: NAD, awake, alert, resting. HEENT: NCAT. MMM. Lungs: Unlabored on 1L NC. No dyspnea with conversation or exam. Improved clarity to auscultation in bilateral anterior lung bai, possible diminished breath sounds at the left anterior base. Chesttube in place, dressing c/d/I, draining serosanguinous. Cardiovascular: NSR on telemetry. RRR, normal S1 and S2, no murmurs/rubs/gallops, no JVD. GI: Soft, NT/ND. No HSM or masses. Skin: No concerning rashes, lesions or bruises. Jaundiced as above. Extremities: Normal without edema or cyanosis. WWP. Neurologic: Alert and oriented to interview, setting. No reported or observed focal motor or sensory neurologic deficits to gross exam. Psychiatric: Neutral mood with mood-syntonic affect. LABORATORY DATA Recent Results (from the past 24 hour(s)) Potassium, whole blood Collection Time: 10/05/23 9:23 AM Result Value Ref Range Potassium, bld 4.5 3.3 - 4.9 mmol/L Phosphorus Collection Time: 10/06/23 5:03 AM Result Value Ref Range Phosphorus, pl 2.6 2.3 - 4.5 mg/dL Magnesium Collection Time: 10/06/23 5:03 AM Result Value Ref Range Magnesium 2.4 1.4 - 2.5 mg/dL Basic metabolic panel Collection Time: 10/06/23 5:03 AM Result Value Ref Range Sodium 132 (L) 135 - 145 mmol/L Potassium, pl 4.7 3.3 - 4.9 mmol/L Chloride 103 97 - 110 mmol/L CO2 21 (L) 22 - 32 mmol/L Anion gap 8 2 - 15 mmol/L BUN 45 (H) 6 - 25 mg/dL Creatinine 1.18 0.80 - 1.30 mg/dL Glucose 114 70 - 199 mg/dL Calcium 7.8 (L) 8.5 - 10.3 mg/dL CBC without differential Collection Time: 10/06/23 5:03 AM Result Value Ref Range WBC 10.2 (H) 3.8 - 9.9 K/cumm Hgb 10.9 (L) 13.0 - 17.5 g/dL Hct 28.3 (L) 38.9 - 50.3 % Plt 222 150 - 400 K/cumm MPV 11.5 9.1 - 12.3 fL RBC 2.73 (L) 4.30 - 5.80 M/cumm MCV 103.7 (H) 81.3 - 96.4 fL MCH 39.9 (H) 27.1 - 33.3 pg MCHC 38.5 (H) 32.3 - 35.7 g/dL RDW CV 16.6 (H) 11.1 - 14.9 % RDW SD 61.9 (H) 35.7 - 48.1 fL NRBC abs 0.00 0.00 - 0.01 K/cumm eGFR Collection Time: 10/06/23 5:03 AM Result Value Ref Range eGFR 85 >=60 mL/min/1.73 m2 Micro: Lab Results Component Value Date MICROBIOLOGY Final Report: Negative 10/03/2023 MICROBIOLOGY Preliminary Report: No growth to date. 10/03/2023 MICROBIOLOGY Final Report: This is the final report. (.) 10/03/2023 MICROBIOLOGY Preliminary Report: No growth to date. 10/03/2023 MICROBIOLOGY Preliminary Report: No growth to date. 10/03/2023 Imaging Results: XR Chest 1 View Narrative: EXAMINATION: 1 view chest radiograph Impression: The current study is compared with the prior radiograph dated 10/04/2023. Right basilar chest tube. Decreased small right pleural effusion with associated atelectasis in left lung. Increased small to moderate left effusion with increased atelectasis in the left lung base. No pneumothorax. Cardiomediastinal silhouette is stable. Surgical clips project over the upper abdomen. Dictated by: Deshawn Jaramillo MD The radiology attending physician has personally reviewed this study, and had reviewed and/or edited this written report and agrees with it. Electronically signed by: Michelle Smith M.D. Assessment/Plan Beka Lares is a 28 y.o. 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 #Acute Hypoxemic Respiratory Failure #Parapneumonic Effusion Likely 2/2 pneumonia, RPP positive for Rhino/Entero. CXR w/ moderate R sided pleural effusion, R airspace opacity possibly pneumonia and atelectasis. S/p thoracentesis in the ED, consistent with a parapneumonic effusion. CT Chest w/ and w/o contrast s/p thoracentesis with partially loculated moderate R and trace L pleural effusions, increased peribronchovascular consolidation and increased smoothinterlobular septal line thickening w/ superimposed pulmonary edema and possibly infectious pneumonia. Endemic mycoses work-up negative. - O2 prn, ARUNA - cefepime for total 7d course (10/03-10/10) - s/p vancomycin (10/03-10/04), azithromycin (10/04-10/05) - Duonebs q4h prn - s/p thoracentesis 10/03, 10/04, chest tube placement 10/04 --- consider pulling chest tube 10/06 pending output and POCUS - f/u thoracentesis studies (leukemia/lymphoma flow, cytology) - Diuresis as below, FBG even - IS, OOBTC - f/u aspergillus #Back Pain Likely muscular in nature and iso parapneumonic effusion, Lumbar MRI negative for OM/spinal epidural abscess - Lidocaine patches - 10mg cyclobenzaprine TID prn - 5mg oxycodone q4h prn>q6h prn - Manage conservatively #Liver Transplant 03/1999 c/b PTLD (c-Myc, EBV+) #Autoimmune Hepatitis #CMV Viremia: S/p OLT ' c/b PTLD diagnosed in 2016, last chemo in 2018 w/ history of long- term CMV viremia. He has had varying degrees of CMV since 2019 [address] followed [address] Duncan in the ID clinic. He was recently on Maribavir, switched to Foscarnet (EOT 09/07) and Valcyte as he had heterogenous CMV w/ varying resistant types during most recent admission 08/2023, levels stable this admission. Current home medications are Tacrolimus 0.5mg q48h, Valganciclovir 900mg BID, Ursodiol 600mg daily, Letermovir 480mg, Aldactone 50mg, Lasix 20mg. - Continue tacrolimus 0.5mg q48h, follow troughs - Continue ursodiol 600mg daily - Continue valganciclovir 900mg BID - Continue letermovir 480mg daily - Resume home lasix 20mg daily - Holding home aldactone 50mg daily - Hepatology following, appreciate recs #WATSON Cr elevated to 1.44>1.18 from baseline of 0.8-1.1. Suspect hypovolemia - Diuresis as above #ITP s/p Splenectomy 2012 On IVIG q4-6 weeks, most recently received 08/31/23. #Superficial VTE Noted in LUE during previous admission. Dispo: ICU Code Status: Full Code F (Feeding) : Adult Diet Regular A (Analgesia) : NA S (Sedation) : NA T (Thromboembolic) ppx: enoxaparin 40mg daily H (Head of Bed Elevation): Goal: 30 if intubated. Last charted: Patient Position: Lying, HOB 30 degrees U (stress Ulcer ppx) : NA G (Glycemic control) : SSI if BG>180 Last BM : Contact : Primary Emergency Contact: Héctor Lares Attending MD to make comment on patient risk/complexity. Wendy Bonds MD PhD Resident Physician, Internal Medicine Cosigned by Lisandra Harper MD at 10/07/2023 7:20 AM MATHEMATICIAN RESEARCH EMATICIAN RESEARCH EMATICIAN RESEARCH EMATICIAN RESEARCH EMATICIAN RESEARCH Associated attestation - Lisandra Harper MD - 10/07/2023 7:20 AM MATHEMATICIAN RESEARCH Attending Documentation I have seen and examined the patient on 10/06/2023. I agree with the findings and plan of care as documented in the resident's/fellow's note. Supplementary Attestation Today, I am treating the patient for acute hypoxemic respiratory failure, parapneumonic effusion, pneumonia which is in severe exacerbation, progression, or experiencing treatment side effects as evidenced by need for oxygen supplementation, chest tube placement, IV antibiotics, as described in thenote. Keep chest tube in place for now, continue to monitor output. Continue abx. Patient stable totransfer to floor. Lisandra Harper MD * Ny Zamora MD - 10/05/2023 1:05 PM CST MICU Daily Progress Note Name: Beka Lares Today: October 05, 2023 : 1995 Age: 28 y.o. male Admit: 10/03/2023 Bed: [id number] LOS: 2 days Identifying Information: Beka Lares is a 28 y.o. 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 Admitted 10/03/2023 7:58 AM, in ICU for 1d 15h. Subjective Interval - S/p R chest tube placement on 10/04. 130 cc out. Unable to instill alteplase overnight. CXR mildlyimproved on the R and with increased opacities in the L lower lung field. - Remains on 2L NC. Symptomatically improved. - Cr 1.44 from 1.2. BUN 51 from 43. Suspect hypovolemia. Plan - Continue cefepime. Discontinue vancomycin given negative MRSA nares. Completed course of azithromycin. - Continue holding spironolactone given hyperkalemia - Recheck tacro trough tomorrow. - Hold lasix. FBG even today. - CMV pending - Follow up thoracentesis studies - Transfer to floor Lines: Peripheral IV 10/03/23 20 G Anterior;Distal;Left;Upper Arm (Active) Peripheral IV 10/03/23 20 G Anterior;Left Forearm (Active) Chest Tube Right (Active) MEDICATIONS Scheduled Meds PRN Meds Infusions cefepime, 2,000 mg, intravenous, Q8H PIPPA enoxaparin, 40 mg, subcutaneous, Daily-2100 [Held by Provider] furosemide, 20 mg, oral, Daily letermovir, 480 mg, oral, Daily lidocaine, 1 patch, transdermal, Q24H sodium chloride 0.9%, 0.5-20 mL, intra-catheter, Q8H PIPPA [Held by Provider] spironolactone, 50 mg, oral, Daily tacrolimus, 0.5 mg, oral, Every other day ursodioL, 600 mg, oral, Daily with dinner valGANciclovir, 900 mg, oral, BID sodium chloride 0.9%, 30 mL, PRN cyclobenzaprine, 10 mg, TID PRN ipratropium-albuteroL, 3 mL, Q4H PRN (RT) methyl salicylate-menthol, , QID PRN ondansetron, 4 mg, Q6H PRN polyethylene glycol, 17 g, Daily PRN sodium chloride 0.9%, 0.5-20 mL, PRN Objective Vitals: The patient's height is 172.7 cm (5' 7.99 ) and weight is 63.3 kg (139 lb 8.8 oz). His oral temperature is 36.7 ??C (98.1 ??F). His blood pressure is 120/63 and his pulse is 94. His respiration is 20and oxygen saturation is 95%. Vitals: 10/05/23 0900 10/05/23 1000 10/05/23 1100 10/05/23 1200 BP: 124/79 118/65 108/62 120/63 BP Location: Right arm Patient Position: Lying;HOB 30 degrees Pulse: 100 94 90 94 Resp: (!) 37 24 21 20 Temp: 36.7 ??C (98.1 ??F) TempSrc: Oral SpO2: 92% 96% 97% 95% Weight: Height: Vent settings: Hemodynamic parameters for last 24 hours: I/O: Date 10/04/23699 - 10/05/2365810/05/23699 - 10/06/23658 Shift [id number] 24 Hour Total 5203-2792 3856-9383 24 Hour Total INTAKE P.O. 600 600 I.V.(mL/kg) 70(1.1) 70(1.1) IV Piggyback 200 220 420 20 20 Shift Total(mL/kg) 200(3.2) 290(4.6) 490(7.7) 620(9.8) 620(9.8) OUTPUT Urine(mL/kg/hr) 1000(1.3) 300(0.4) 1300(0.9) Chest Tube 130 130 110 110 Shift Total(mL/kg) 1130(17.9) 300(4.7) 1430(22.6) 110(1.7) 110(1.7) [facility] -930 -10 -940 510 510 Weight (kg) 63.3 63.3 63.3 63.3 63.3 63.3 Physical Exam: General: NAD, sleepy. HEENT: NCAT. Lungs: Unlabored on 2L NC. No dyspnea with conversation or exam. Ronchorous to auscultation in bilateral anterior lung bai. Cardiovascular: NSR on telemetry. RRR, normal S1 and S2, no murmurs/rubs/gallops, no JVD. GI: Soft, NT/ND. No HSM or masses. Skin: No concerning rashes, lesions or bruises. Jaundiced as above. Extremities: Normal without edema or cyanosis. WWP. Neurologic: Alert and oriented to interview, setting. No reported or observed focal motor or sensory neurologic deficits to gross exam. Psychiatric: Neutral mood with mood-syntonic affect. LABORATORY DATA Recent Results (from the past 24 hour(s)) Basic metabolic panel Collection Time: 10/04/23 2:47 PM Result Value Ref Range Sodium 132 (L) 135 - 145 mmol/L Potassium, pl 5.4 (H) 3.3 - 4.9 mmol/L Chloride 102 97 - 110 mmol/L CO2 20 (L) 22 - 32 mmol/L Anion gap 10 2 - 15 mmol/L BUN 43 (H) 6 - 25 mg/dL Creatinine 1.22 0.80 - 1.30 mg/dL Glucose 116 70 - 199 mg/dL Calcium 8.5 8.5 - 10.3 mg/dL eGFR Collection Time: 10/04/23 2:47 PM Result Value Ref Range eGFR 82 >=60 mL/min/1.73 m2 Phosphorus Collection Time: 10/05/23 4:35 AM Result Value Ref Range Phosphorus, pl 3.9 2.3 - 4.5 mg/dL Magnesium Collection Time: 10/05/23 4:35 AM Result Value Ref Range Magnesium 2.3 1.4 - 2.5 mg/dL Basic metabolic panel Collection Time: 10/05/23 4:35 AM Result Value Ref Range Sodium 133 (L) 135 - 145 mmol/L Potassium, pl 5.7 (H) 3.3 - 4.9 mmol/L Chloride 102 97 - 110 mmol/L CO2 21 (L) 22 - 32 mmol/L Anion gap 10 2 - 15 mmol/L BUN 51 (H) 6 - 25 mg/dL Creatinine 1.44 (H) 0.80 - 1.30 mg/dL Glucose 121 70 - 199 mg/dL Calcium 7.8 (L) 8.5 - 10.3 mg/dL CBC without differential Collection Time: 10/05/23 4:35 AM Result Value Ref Range WBC 10.8 (H) 3.8 - 9.9 K/cumm Hgb 10.2 (L) 13.0 - 17.5 g/dL Hct 27.1 (L) 38.9 - 50.3 % Plt 244 150 - 400 K/cumm MPV 11.8 9.1 - 12.3 fL RBC 2.66 (L) 4.30 - 5.80 M/cumm MCV 101.9 (H) 81.3 - 96.4 fL MCH 38.3 (H) 27.1 - 33.3 pg MCHC 37.6 (H) 32.3 - 35.7 g/dL RDW CV 16.4 (H) 11.1 - 14.9 % RDW SD 60.7 (H) 35.7 - 48.1 fL NRBC abs 0.00 0.00 - 0.01 K/cumm Tacrolimus level trough Collection Time: 10/05/23 4:35 AM Result Value Ref Range Tacrolimus trough 9.9 ng/mL eGFR Collection Time: 10/05/23 4:35 AM Result Value Ref Range eGFR 67 >=60 mL/min/1.73 m2 Potassium, whole blood Collection Time: 10/05/23 9:23 AM Result Value Ref Range Potassium, bld 4.5 3.3 - 4.9 mmol/L Micro: Lab Results Component Value Date MICROBIOLOGY Final Report: Negative 10/03/2023 MICROBIOLOGY Preliminary Report: No growth to date. 10/03/2023 MICROBIOLOGY Final Report: This is the final report. (.) 10/03/2023 MICROBIOLOGY Preliminary Report: No growth to date. 10/03/2023 MICROBIOLOGY Preliminary Report: No growth to date. 10/03/2023 Imaging Results: XR Chest 1 View Narrative: EXAMINATION: 1 view chest radiograph Impression: Comparison is made to chest radiograph 10/03/2023 2:01 PM. There has been interval placement of a right pigtail catheter. There are small lung volumes, improved from the prior exam. There is decreased now small posteriorly layering right pleural effusion. Small left pleural effusion. No pneumothorax. The cardiomediastinal silhouette is unchanged. There are numerous surgical clips seen in the abdomen. Dictated by: Sunil Macias MD The radiology attending physician has personally reviewed this study, and had reviewed and/or edited this written report and agrees with it. Electronically signed by: Dl Cabrera M.D. 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 representative/guardian agrees and accepts Patient's stated name/ matches armband: Yes Allergies confirmed: yes Consent form signed, dated, timed; matches correct patient, intended procedure and site: Yes Imaging: Pertinent imaging reviewed, correctly oriented and match to patient identifiers Lab/Diag test results: Pertinent lab/diag tests reviewed and match to patient identifiers Supplies, devices and special equipment are available: yes Site/side marked: yes Indications: pleural effusion Skin prepararion: Skin prepped with 2% chlorhexidine Anesthesia (see MAR for exact dosage) Anesthesia method: Local infiltration Local anesthetic: Lidocaine 1% Patient sedated: No Placement location: Right lateral Ultrasound used for: site marking Tube size (Citizen Of [place]): 14 Tube type: Pigtail Tube connected to: Suction Drainage characteristics: Serous Suture material: 0 silk Dressing: Impervious dressing Post-insertion x-ray findings: tube in good position Patient tolerance: Patient tolerated the procedure well with no immediate complications Post Procedure Debrief: All guidewires, needles, sponges or other items are accounted for: yes Any special post procedure monitoring, testing or other considerations: n/a All specimens identified, labeled and matched to patient identification: yes Responsible libertarian for transporting specimen(s) to lab determined: n/a Assessment/Plan Beka Lares is a 28 y.o. 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 #Acute Hypoxemic Respiratory Failure #Parapneumonic Effusion Likely 2/2 pneumonia, RPP positive for Rhino/Entero. CXR w/ moderate R sided pleural effusion, R airspace opacity possibly pneumonia and atelectasis. S/p thoracentesis in the ED, consistent with a parapneumonic effusion. CT Chest w/ and w/o contrast s/p thoracentesis with partially loculated moderate R and trace L pleural effusions, increased peribronchovascular consolidation and increased smoothinterlobular septal line thickening w/ superimposed pulmonary edema and possibly infectious pneumonia. 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 He has had varying degrees of CMV since 2019 and is followed [address] Dr[address] Duncan in the ID clinic. He was recently on Maribavir, switched to Foscarnet (EOT 09/07) and Valcyte as he had heterogenous CMV w/ varying resistant types during most recent admission 08/2023. Current home medications are Tacrolimus 0.5mg q48h, Valganciclovir 900mg BID, Ursodiol 600mg daily, Letermovir 480mg, Aldactone 50mg, Lasix 20mg. - Continue tacrolimus 0.5mg q48h - Continue ursodiol 600mg daily - Continue valganciclovir 900mg BID - Continue letermovir 480mg daily - Hold lasix 20mg/aldactone 50mg - Daily tacrolimus troughs - Hepatology following, appreciate recs - CMV PCR pending #[place] Cr elevated to 1.44 from baseline of 0.8-1.1. Suspect hypovolemia - Hold lasix and aldactone - FBG even #ITP s/p Splenectomy 2012 On IVIG q4-6 weeks, most recently received 08/31/23. #Superficial VTE Noted in LUE during previous admission. Dispo: ICU Code Status: Full Code F (Feeding) : Adult Diet Regular A (Analgesia) : NA S (Sedation) : NA T (Thromboembolic) ppx: enoxaparin 40mg daily H (Head of Bed Elevation): Goal: 30 if intubated. Last charted: Patient Position: Lying, HOB 30 degrees U (stress Ulcer ppx) : NA G (Glycemic control) : SSI if BG>180 Last BM : Contact : Primary Emergency Contact: Héctor Lares Attending MD to make comment on patient risk/complexity. Ny Zamora MD Resident Physician, Internal Medicine Cosigned by Lisandra Harper MD at 10/07/2023 7:19 AM MATHEMATICIAN RESEARCH EMATICIAN RESEARCH EMATICIAN RESEARCH Associated attestation - Lisandra Harper MD - 10/07/2023 7:19 AM MATHEMATICIAN RESEARCH MICU Attending Daily Note Date of service: 10/05/23 Critical Care Time: I have spent 32 minutes in full attendance with this critically ill patient making frequent reassessments and decisions regarding this patient's complex medical care in addition and separately from other providers. Critical care time was exclusive of separately billable procedures, treating other patients and teaching time. Critical care was necessary to treat or prevent imminent or life-threatening deterioration of the following conditions: AHRF Parapneumonic effusion/PNA Recurrent CMV viremia OLTx for autoimmune hepatitis History: 28 y.o. old male patient with PMH of liver transplant 03/2019 2/2 autoimmune hepatitis c/b PTLD and intermittent CMV viremia, ITP s/p splenectomy on IVIG, LUE superficial VTE who presents for1 week of productive cough and back pain, now admitted to the MICU for acute hypoxemic respiratory failure on BiPAP. Interval History: Chest tube placed yesterday with improvement in pleural effusion. Pleural studiesremain negative, cytology sent yesterday. Data: I have reviewed labs. I have reviewed imaging. A&P: AHRF: +RV/EV, possible secondary bacterial PNA. Also reports symptomatic improvement with drainage of pleural effusion in ED Cont abx, plan 5-7 day course/ Oxygen supplementation for Pox goal >92% Pleural effusion as below Parapneumonic effusion/PNA: exudative per studies, glucose normal decreasing concern for empyema. S/p chest tube placement 10/04. Monitor CT output, keep in place for now Follow-up pleural cultures and cytology Recurrent CMV viremia: cont outpatient treatment OLTx for autoimmune hepatitis: Cont tacro Liver following ITP s/p splenectomy Receives IVIG q4-6 weeks DVT ppx: lovenox SUP ppx: not indicated Access: PIV Flor: no Nutrition: PO diet I have seen and examined this patient on the day of service. I have reviewed and confirmed the history, physical exam, laboratory and radiographic data with the resident as documented in his/her note. I have reviewed and discussed my treatment plan with the ICU team and other medical/consultant teacher staff. * Dannie Garvin, PT - 10/05/2023 8:32 AM CST Physical Therapy Physical Therapy Initial Assessment NOTE: This is a summary note for the santana assessments completed during the evaluation session. For full details, review chart review for all flowsheets documented on by this physical therapist on thisdate. Vital signs documented in vital signs flowsheet. Assessment Assessment Prognosis: Good Problem List: Gait deviations, Decreased strength, Impaired balance, Decreased mobility, Decreased endurance Problem List Comments: PT Diagnosis: 1 week of productive cough and back pain, now admitted to the MICU for acute hypoxemic respiratory failure on BiPAP results in above listed activity deficits and impairments which prevent full participation in home and community mobility Plan Plan Plan : Plan of care initiated, If this is the last note, consider this the discharge summary PT Recommendation and Plan Recommendation/Plan PT Recommendation/Plan: Home with family, Home with intermittent assist Patient at high risk for: Readmission PT Recommendation/Plan Comments: Patient agreeable with current plan of care PT Frequency during current admission: 3-5x/wk Treatment/Interventions during current admission: Balance Training, Bed mobility, Endurance training, Functional activity, Functional transfer training, Gait training, Stair training, Strengthening, Therapeutic activity, Therapeutic exercise PT - Next Appointment: 10/06/23 PT Evaluation Complete: Yes General Information General Chart Reviewed: Yes Session Type: Evaluation PT Received On: 10/05/23 Safe Environment: Arm band checked, Patient found in supine, Session completed bedside, Gait belt not utilized, see comment (Chest Tube) Subjective: Agreeable to Therapy Subjective Comment: My back hurts Family/Caregiver Present: No Physical Therapy-Patient Goal: To go home Prior Function Prior Function Level of [place]: Independent with ADLs, Independent functional transfers, Independent with ambulation Lives With: Family Receives Help From: Family (FT assist available) Fall within the last 6 months: No Home Living Home Living Type of Home: House Home Layout: One level, Stairs with rails # of Steps-Railed: 10 (down to basement, rail on R when descending) Home Access: Stairs to enter without rails Entrance Stairs-Rails: None Entrance Stairs-Number of Steps: 1 Home Mobility Equipment-Available: Crutches Home Mobility Equipment-Currently Using: None Precautions Precautions Precautions: Fall risk Precaution Comments: Verbally reviewed precautions, patient verbalized understanding Pain Pain Assessment Pain Assessment: 0-10 Pain Score: 7 Patient's Stated Pain Goal: No pain Pain Type: Acute pain Pain Location: Flank Pain Orientation: Left, Posterior Pain Interventions: RN Notified (RN Nick in room) Cognition Cognition Arousal/Alertness: Alert, Appropriate responses to stimuli Orientation : Oriented X4 (person, place, time, situation) Following Commands: Follows all commands and directions without difficulty 6 Clicks Basic Mobility - 6 Click How much difficulty does the patient have: Turning over in bed: A little How much difficulty does the patient currently have: Sitting down and standing up from a chair witharms?: A little How much difficulty does the patient have: Moving from lying on back to sitting on the side of the bed?: A little How much difficulty does the patient have: Moving to and from a bed to a chair including wheelchair?: A little How much help does the patient currently need: Walk in hospital room?: A little How much help from another person does the patient currently need: Climbing 3-5 steps with a railing?: A little Total 6 Click Score (range 6-24): 18 Score Interpretation: 18 Bed Mobility Bed Mobility Bed Mobility: Yes Bed Mobility 1 Bed Mobility From 1: Supine Bed Mobility Type 1: To Bed Mobility to 1: Edge of bed Level of Assistance 1: Minimum Assist Bed Mobility Comments 1: Min A for trunk elevation Transfers Transfers Transfer: Yes Transfer 1 Transfer From 1: Sit Transfer Type 1: To and from Transfer to 1: Stand Technique 1: Sit to stand, Stand to sit Transfer Device 1: No device Transfer Level of Assistance 1: Minimum Assist Trials/Comments 1: Min A for maintaining balance Transfers 2 Transfer From 2: Bed Transfer Type 2: To Transfer to 2: Chair with arms Technique 2: Stand and step Transfer Device 2: No device Transfer Level of Assistance 2: Minimum Assist Trials/Comments 2: Min A for balance Balance Static Sitting Balance Static Sitting-Balance Support: Bilateral upper extremity supported Static Sitting-Sitting Surface: Bed Static Sitting-Level of Assistance: Close supervision Static Sitting-Comment/# of Minutes: Safety Static Standing Balance Static Standing-Balance Support: Unilateral upper extremity supported (RENTAL SALES 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) Static Standing-Standing Surface: Floor Static Standing-Level of Assistance: Minimum assistance Static Standing-Comment/# of Minutes: Min A for maintaining balance Ambulation Ambulation Ambulation: Yes Ambulation 1 Distance (ft) 1: 80 Surface 1: Level tile Device 1: No device Other Apparatus 1: Wheelchair follow Assistance 1: Minimum Assist Gait: Requires assist with 1: Maintaining balance Gait: Requires verbal cues to 1: Pace activity Gait Deviations 1: Step length - decreased, Petty - decreased, Heel strike - decreased, Hip/knee flexion during swing phase - decreased Ambulation Comments 1: 10m walk test: 0.69m/s Stairs Stairs Stairs: No Stair Comments: Stairs not performed this visit due to safety concerns Curbs RLE Assessment RLE Assessment RLE Assessment: Within Functional Limits LLE Assessment LLE Assessment LLE Assessment: Within Functional Limits Equipment Used Safe Environment End of Session Safe Environment End of Therapy Session: Patient left in chair, RN notified, Call light within reach, Overbed table within reach Other Comments PT Goals Multi-Disciplinary Problems (from Physical Therapy) Active Problems Problem: Mobility Start Date: 10/05/23 Goal Start Date Expected End Date End Date LTG - Patient will ambulate community distance 10/05/23 10/12/23 -- Goal Start Date Expected End Date End Date STG - Patient will ambulate 150' with no device and SBA 10/05/23 10/12/23 -- Goal Start Date Expected End Date End Date STG - Patient will ascend and descend 2 stairs with the following level of assist: SBA 10/05/23 10/12/23 -- Problem: Transfers Start Date: 10/05/23 Goal Start Date Expected End Date End Date STG - Transfer from bed to chair with Sup 10/05/23 10/12/23 -- Goal Start Date Expected End Date End Date STG - Patient to transfer to and from sit to supine with Sup 10/05/23 10/12/23 -- Goal Start Date Expected End Date End Date STG - Patient will transfer sit to and from stand with Sup 10/05/23 10/12/23 -- Problem: PT Misc Start Date: 10/05/23 Goal Start Date Expected End Date End Date PT STG - Patient and caregivers will participate in and demonstrate understanding of therapeutic exercise and safe mobility strategies to improve independence with functional mobility. 10/05/23 10/12/23 -- For questions, please review the treatment team and contact the PT or OIL TANKER CAPTAIN currently assigned to this patient. If a physical therapy clinician is not assigned to this patient, please call [phone]. EMATICIAN RESEARCH * Lisandra Harper MD - 10/04/2023 8:32 AM CST MICU Attending Daily Note Date of service: 10/04/23 Critical Care Time: I have spent 45 minutes in full attendance with this critically ill patient making frequent reassessments and decisions regarding this patient's complex medical care in addition and separately from other providers. Critical care time was exclusive of separately billable procedures, treating other patients and teaching time. Critical care was necessary to treat or prevent imminent or life-threatening deterioration of the following conditions: AHRF Parapneumonic effusion/PNA Recurrent CMV viremia OLTx for autoimmune hepatitis History: 28 y.o. old male patient with PMH of liver transplant 03/2019 2/2 autoimmune hepatitis c/b PTLD and intermittent CMV viremia, ITP s/p splenectomy on IVIG, LUE superficial VTE who presents for1 week of productive cough and back pain, now admitted to the MICU for acute hypoxemic respiratory failure on BiPAP. Interval History: No acute events since admission. Pleural studies consistent with exudative effusion. CT chest with multiloculated effusion. Data: I have reviewed labs. I have reviewed imaging. A&P: AHRF: +RV/EV, possible secondary bacterial PNA. Also reports symptomatic improvement with drainage of pleural effusion in ED Cont abx Oxygen supplementation for Pox goal >92% Pleural effusion as below Parapneumonic effusion/PNA: exudative per studies, glucose normal decreasing concern for empyema. Evaluate pleural space for chest tube. Suspect will need tpa/dornase to evacuate space with possibility of needing additional chest tubes vs VATS Send cytology from repeat sample Recurrent CMV viremia: cont outpatient treatment OLTx for autoimmune hepatitis: Cont tacro Liver consult ITP s/p splenectomy Receives IVIG q4-6 weeks DVT ppx: lovenox SUP ppx: not indicated Access: PIV Flor: no Nutrition: NPO until after potential chest tube placement. I have seen and examined this patient on the day of service. I have reviewed and confirmed the history, physical exam, laboratory and radiographic data with the resident as documented in his/her note. I have reviewed and discussed my treatment plan with the ICU team and other medical/consultant teacher staff. EMATICIAN RESEARCH * Wendy Bonds MD PhD - 10/04/2023 8:14 AM CST MICU Daily Progress Note Name: Beka Lares Today: October 04, 2023 : 1995 Age: 28 y.o. male Admit: 10/03/2023 Bed: [id number] LOS: 1 day Identifying Information: Beka Lares is a 28 y.o. 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 Admitted 10/03/2023 7:58 AM, in ICU for 10h. Subjective Interval - Weaned to 2LNC with normal WOB - POCUS pleural effusion with adherent material and pockets of fluid, chest tube placed in R pleura - effusion samples sent for cytology and leukemia/lymphoma flow - leukemia/lymphoma flow added to ED thora sample - sent endemic mycoses studies Plan - cefepime to q8h - Hold spironolactone given hyperkalemia to 5.4 - Remainder of plan as above Lines: Peripheral IV 10/03/23 20 G Anterior;Distal;Left;Upper Arm (Active) Peripheral IV 10/03/23 20 G Anterior;Left Forearm (Active) MEDICATIONS Scheduled Meds PRN Meds Infusions azithromycin, 500 mg, intravenous, Q24H PIPPA cefepime, 2,000 mg, intravenous, Q12H PIPPA enoxaparin, 40 mg, subcutaneous, Daily-2100 furosemide, 20 mg, oral, Daily ipratropium-albuteroL, 3 mL, nebulization, QID (RT) letermovir, 480 mg, oral, Daily lidocaine, 1 patch, transdermal, Q24H sodium chloride 0.9%, 0.5-20 mL, intra-catheter, Q8H PIPPA spironolactone, 50 mg, oral, Daily tacrolimus, 0.5 mg, oral, Every other day ursodioL, 600 mg, oral, Daily with dinner valGANciclovir, 900 mg, oral, BID vancomycin, 15 mg/kg, intravenous, Q12H sodium chloride 0.9%, 30 mL, PRN ondansetron, 4 mg, Q6H PRN polyethylene glycol, 17 g, Daily PRN sodium chloride 0.9%, 0.5-20 mL, PRN Objective Vitals: The patient's height is 172.7 cm (5' 7.99 ) and weight is 63.3 kg (139 lb 8.8 oz). His continuous temporal temperature temperature is 37.6 ??C (99.7 ??F). His blood pressure is 122/66 and his pulse is 113. His respiration is 26 and oxygen saturation is 96%. Vitals: 10/04/23 0413 10/04/23 0500 10/04/23 0600 10/04/23 0616 BP: 115/65 122/66 BP Location: Right arm Right arm Patient Position: HOB 30 degrees HOB 30 degrees Pulse: 104 113 Resp: 26 26 Temp: TempSrc: SpO2: 97% 97% 97% 96% Weight: Height: Vent settings: FiO2 (%): [40 %] 40 % Hemodynamic parameters for last 24 hours: I/O: Date 10/03/23699 - 10/04/23 0659 10/04/23 07 - 10/05/23 0659 Shift 6214-1241 4280-2724 24 Hour Total 8099-4165 6640-2950 24 Hour Total INTAKE IV Piggyback 255 255 Shift Total(mL/kg) 255(4) 255(4) OUTPUT Shift Total(mL/kg) NET 255 255 Weight (kg) 61.2 63.3 63.3 63.3 63.3 63.3 Physical Exam: General: NAD, sleepy. Jaundiced. HEENT: NCAT. Lungs: Unlabored on 2L NC. No dyspnea with conversation or exam. Ronchorous to auscultation in bilateral anterior lung bai with inspiratory and expiratory wheezes. Cardiovascular: NSR on telemetry. RRR, normal S1 and S2, no murmurs/rubs/gallops, no JVD. GI: Soft, NT/ND. No HSM or masses. Skin: No concerning rashes, lesions or bruises. Jaundiced as above. Extremities: Normal without edema or cyanosis. WWP. Neurologic: Alert and oriented to interview, setting. No reported or observed focal motor or sensory neurologic deficits to gross exam. Psychiatric: Neutral mood with mood-syntonic affect. LABORATORY DATA Recent Results (from the past 24 hour(s)) CBC with auto differential Collection Time: 10/03/23 8:24 AM Result Value Ref Range WBC 17.1 (H) 3.8 - 9.9 K/cumm Hgb 12.1 (L) 13.0 - 17.5 g/dL Hct 31.3 (L) 38.9 - 50.3 % Plt 211 150 - 400 K/cumm MPV 10.6 9.1 - 12.3 fL RBC 3.09 (L) 4.30 - 5.80 M/cumm MCV 101.3 (H) 81.3 - 96.4 fL MCH 39.2 (H) 27.1 - 33.3 pg MCHC 38.7 (H) 32.3 - 35.7 g/dL RDW CV 16.4 (H) 11.1 - 14.9 % RDW SD 60.1 (H) 35.7 - 48.1 fL NRBC abs 0.00 0.00 - 0.01 K/cumm Comprehensive metabolic panel Collection Time: 10/03/23 8:24 AM Result Value Ref Range Sodium 135 135 - 145 mmol/L Potassium, pl 4.9 3.3 - 4.9 mmol/L Chloride 105 97 - 110 mmol/L CO2 21 (L) 22 - 32 mmol/L Anion gap 9 2 - 15 mmol/L BUN 35 (H) 6 - 25 mg/dL Creatinine 1.17 0.80 - 1.30 mg/dL Glucose 117 70 - 199 mg/dL Calcium 8.5 8.5 - 10.3 mg/dL Bilirubin, total 5.4 (H) 0.1 - 1.2 mg/dL Protein, pl 5.1 (L) 6.5 - 8.5 g/dL Albumin 2.8 (L) 3.5 - 5.0 g/dL Alk phos 181 (H) 40 - 130 Units/L ALT 30 7 - 55 Units/L AST 40 10 - 50 Units/L Respiratory pathogen panel Nasopharyngeal Collection Time: 10/03/23 8:24 AM Specimen: Nasopharyngeal Result Value Ref Range [...] M. pneumoniae DNA Not Detected Not Detected Bilirubin, direct Collection Time: 10/03/23 8:24 AM Result Value Ref Range Bilirubin, direct 4.7 (H) 0.1 - 0.3 mg/dL Differential, auto Collection Time: 10/03/23 8:24 AM Result Value Ref Range Neutrophil abs 11.3 (H) 1.7 - 6.5 K/cumm Imm gran abs 0.3 (H) 0.0 - 0.1 K/cumm Lymphocyte abs 1.2 0.8 - 3.3 K/cumm Monocyte abs 4.2 (H) 0.2 - 0.8 K/cumm Eosinophil abs 0.1 0.0 - 0.5 K/cumm Basophil abs 0.1 0.0 - 0.1 K/cumm Neutrophil pct 65.8 % Imm gran pct 1.9 % Lymphocyte pct 7.1 % Monocyte pct 24.5 % Eosinophil pct 0.3 % Basophil pct 0.4 % eGFR Collection Time: 10/03/23 8:24 AM Result Value Ref Range eGFR 86 >=60 mL/min/1.73 m2 Lactate dehydrogenase (LD) Collection Time: 10/03/23 8:24 AM Result Value Ref Range Lactate dehydrogenase (LDH) 293 (H) 100 - 250 Units/L Tacrolimus level random Collection Time: 10/03/23 8:27 AM Result Value Ref Range Tacrolimus random 8.9 ng/mL Blood culture Blood Antecubital, left Collection Time: 10/03/23 9:19 AM Specimen: Antecubital, left; Blood Result Value Ref Range Report Preliminary Report: No growth to date. Blood culture Blood Forearm, left Collection Time: 10/03/23 9:19 AM Specimen: Forearm, left; Blood Result Value Ref Range Report Preliminary Report: No growth to date. POCT lactate Collection Time: 10/03/23 9:26 AM Result Value Ref Range Lactate POC i-STAT 1.0 0.7 - 2.2 mmol/L Pneumonia PCR with aerobic culture and Gram stain Sputum Collection Time: 10/03/23 9:33 AM Specimen: Sputum Result Value Ref Range Direct Specimen Exam Stain: Abundant squamous epithelial cells seen indicating excessive oropharyngeal contamination. Culture will not be processed further. Please submit another specimen. Smear results called to and read back by: Yulisa Joy MD [phone] on 10/03/2023 10:10:17 by: Bahman Torres MT Direct Specimen Exam Molecular Analysis: Abundant squamous epithelial cells observed on Gram stain. Specimen will not be processed for rapidmolecular analysis. Report Final Report: This is the final report. (.) Protime-INR Collection Time: 10/03/23 9:33 AM Result Value Ref Range PT 16.8 (H) 10.3 - 13.7 sec INR 1.47 (H) 0.90 - 1.20 Lactate dehydrogenase, body fluid Collection Time: 10/03/23 12:00 PM Result Value Ref Range Specimen type, fld Pleural LD, fld 306 Units/L Protein, body fluid Collection Time: 10/03/23 12:00 PM Result Value Ref Range Specimen type, fld Pleural Protein, fld 3.3 g/dL Cell count with reflex to differential, body fluid Collection Time: 10/03/23 12:00 PM Result Value Ref Range Specimen type, fld Pleural Color, fld Jany Clarity, fld Cloudy (A) Clear Nucleated cells, fld 631 /cumm RBC, fld 7,878 /cumm Aerobic and anaerobic culture and gram stain Pleural fluid Pleural cavity Collection Time: 10/03/23 12:00 PM Specimen: Pleural cavity; Pleural fluid Result Value Ref Range Direct Specimen Exam Stain: Cytospin Gram stain shows: Few polymorphonuclear leukocytes seen. Red blood cells present. Other cellular material present. No organisms seen. Report Preliminary Report: No growth to date. Cell Differential, Body Fluid Collection Time: 10/03/23 12:00 PM Result Value Ref Range Total cells diffed 100 cells Neutrophils, fld 19 % Lymphs, fld 51 % Monocyte, fld 16 % Macrophages, fld 14 % Glucose, body fluid Collection Time: 10/03/23 12:00 PM Result Value Ref Range Specimen type, fld Pleural Glucose, fld 99 mg/dL Urinalysis reflex to microscopic and culture Urine Collection Time: 10/03/23 5:25 PM Specimen: Urine Result Value Ref Range Color, ur Yellow Yellow Clarity, ur Clear Clear Specific gravity, ur 1.039 (H) 1.003 - 1.030 pH, urine 6.0 Protein, ur ql Trace Negative Glucose, ur ql Negative Negative Ketones, ur Trace Negative Bilirubin, ur 1+ (A) Negative Blood, ur Negative Negative Urobilinogen, ur <2.0 <2.0 mg/dL Nitrite, ur Negative Negative Leukocyte esterase, ur Negative Negative UA reflex comment Reflex conditions for microscopic UA and culture not met. Blood gas, venous Collection Time: 10/03/23 5:58 PM Result Value Ref Range pH, Venous 7.30 (L) 7.32 - 7.43 PCO2, Venous 40 40 - 50 mmHg PO2, Venous 74 mmHg HCO3 Venous, Calculated 20 20 - 30 mmol/L BE, venous -6 mmol/L Comprehensive metabolic panel Collection Time: 10/03/23 10:06 PM Result Value Ref Range Sodium 131 (L) 135 - 145 mmol/L Potassium, pl 5.4 (H) 3.3 - 4.9 mmol/L Chloride 102 97 - 110 mmol/L CO2 21 (L) 22 - 32 mmol/L Anion gap 8 2 - 15 mmol/L BUN 34 (H) 6 - 25 mg/dL Creatinine 1.13 0.80 - 1.30 mg/dL Glucose 93 70 - 199 mg/dL Calcium 8.5 8.5 - 10.3 mg/dL Bilirubin, total 6.1 (H) 0.1 - 1.2 mg/dL Protein, pl 5.0 (L) 6.5 - 8.5 g/dL Albumin 2.8 (L) 3.5 - 5.0 g/dL Alk phos 182 (H) 40 - 130 Units/L ALT 30 7 - 55 Units/L AST 36 10 - 50 Units/L Magnesium Collection Time: 10/03/23 10:06 PM Result Value Ref Range Magnesium 1.8 1.4 - 2.5 mg/dL Phosphorus Collection Time: 10/03/23 10:06 PM Result Value Ref Range Phosphorus, pl 4.5 2.3 - 4.5 mg/dL Lactate Collection Time: 10/03/23 10:06 PM Result Value Ref Range Lactate 1.1 0.7 - 2.0 mmol/L CBC with auto differential Collection Time: 10/03/23 10:06 PM Result Value Ref Range WBC 14.8 (H) 3.8 - 9.9 K/cumm Hgb 11.4 (L) 13.0 - 17.5 g/dL Hct 30.0 (L) 38.9 - 50.3 % Plt 223 150 - 400 K/cumm MPV 10.9 9.1 - 12.3 fL RBC 2.88 (L) 4.30 - 5.80 M/cumm MCV 104.2 (H) 81.3 - 96.4 fL MCH 39.6 (H) 27.1 - 33.3 pg MCHC 38.0 (H) 32.3 - 35.7 g/dL RDW CV 16.5 (H) 11.1 - 14.9 % RDW SD 62.8 (H) 35.7 - 48.1 fL NRBC abs 0.00 0.00 - 0.01 K/cumm eGFR Collection Time: 10/03/23 10:06 PM Result Value Ref Range eGFR 90 >=60 mL/min/1.73 m2 Manual Differential Collection Time: 10/03/23 10:06 PM Result Value Ref Range Differential Manual Cells Counted 119 Neutrophil abs 9.7 (H) 1.7 - 6.5 K/cumm Imm gran abs 0.2 (H) 0.0 - 0.1 K/cumm Lymphocyte abs 1.4 0.8 - 3.3 K/cumm Monocyte abs 3.1 (H) 0.2 - 0.8 K/cumm Eosinophil abs 0.1 0.0 - 0.5 K/cumm Basophil abs 0.2 (H) 0.0 - 0.1 K/cumm Neutrophil pct 65.6 % Lymphocyte pct 9.2 % Monocyte pct 21.0 % Eosinophil pct 0.8 % Basophil pct 1.7 % Metamyelocyte pct 1.7 % POCT glucose Collection Time: 10/03/23 10:12 PM Result Value Ref Range Glucose, POC 382 (H) 70 - 199 mg/dL CBC with auto differential Collection Time: 10/04/23 6:21 AM Result Value Ref Range WBC 15.2 (H) 3.8 - 9.9 K/cumm Hgb 10.6 (L) 13.0 - 17.5 g/dL Hct 28.0 (L) 38.9 - 50.3 % Plt 217 150 - 400 K/cumm MPV 10.7 9.1 - 12.3 fL RBC 2.73 (L) 4.30 - 5.80 M/cumm MCV 102.6 (H) 81.3 - 96.4 fL MCH 38.8 (H) 27.1 - 33.3 pg MCHC 37.9 (H) 32.3 - 35.7 g/dL RDW CV 16.6 (H) 11.1 - 14.9 % RDW SD 62.4 (H) 35.7 - 48.1 fL NRBC abs 0.00 0.00 - 0.01 K/cumm Basic metabolic panel Collection Time: 10/04/23 6:21 AM Result Value Ref Range Sodium 132 (L) 135 - 145 mmol/L Potassium, pl 5.4 (H) 3.3 - 4.9 mmol/L Chloride 102 97 - 110 mmol/L CO2 21 (L) 22 - 32 mmol/L Anion gap 9 2 - 15 mmol/L BUN 39 (H) 6 - 25 mg/dL Creatinine 1.24 0.80 - 1.30 mg/dL Glucose 85 70 - 199 mg/dL Calcium 8.5 8.5 - 10.3 mg/dL Magnesium Collection Time: 10/04/23 6:21 AM Result Value Ref Range Magnesium 1.8 1.4 - 2.5 mg/dL Phosphorus Collection Time: 10/04/23 6:21 AM Result Value Ref Range Phosphorus, pl 5.2 (H) 2.3 - 4.5 mg/dL Differential, auto Collection Time: 10/04/23 6:21 AM Result Value Ref Range Neutrophil abs 9.1 (H) 1.7 - 6.5 K/cumm Imm gran abs 0.3 (H) 0.0 - 0.1 K/cumm Lymphocyte abs 1.6 0.8 - 3.3 K/cumm Monocyte abs 4.0 (H) 0.2 - 0.8 K/cumm Eosinophil abs 0.1 0.0 - 0.5 K/cumm Basophil abs 0.1 0.0 - 0.1 K/cumm Neutrophil pct 59.6 % Imm gran pct 2.1 % Lymphocyte pct 10.7 % Monocyte pct 26.0 % Eosinophil pct 0.9 % Basophil pct 0.7 % eGFR Collection Time: 10/04/23 6:21 AM Result Value Ref Range eGFR 80 >=60 mL/min/1.73 m2 Micro: Lab Results Component Value Date MICROBIOLOGY Preliminary Report: No growth to date. 10/03/2023 MICROBIOLOGY Final Report: This is the final report. (.) 10/03/2023 MICROBIOLOGY Preliminary Report: No growth to date. 10/03/2023 MICROBIOLOGY Preliminary Report: No growth to date. 10/03/2023 MICROBIOLOGY Final Report: No growth 08/26/2023 Imaging Results: ECG 12 lead Jez Nash MD 10/03/2023 9:42 PM ECG 12 lead Date/Time: 10/03/2023 9:42 PM Performed by: Jez Nash MD Authorized by: Dannie Callahan MD Rate: ECG rate: 124 ECG rate assessment: tachycardic Rhythm: Rhythm: sinus tachycardia Ectopy: Ectopy: none QRS: QRS axis: Normal QRS intervals: Normal Conduction: Conduction: normal ST segments: ST segments: Normal T waves: T waves: inverted Inverted: III, V1 and V2 Previous ECG: Previous ECG: Compared to current Date of previous EC08/31/2023 Similarity: No change Interpretation: Interpretation: No significant change Recommended Follow-up: Recommended follow up: further workup in the ED CT Chest W WO Contrast Narrative: EXAMINATION: Computed tomography of the chest with and without intravenous contrast HISTORY: Status post liver transplant 03/20/2019, complicated by post transplant lymphoproliferative disorder with one week of productive cough and back pain TECHNIQUE: Transaxial computed tomographic images of the chest were obtained with and without intravenous contrast according to the standard protocol after the uneventful administration of 70 mL Opti-Ray 350 intravenous contrast. COMPARISON: CT 08/23/2023 FINDINGS: Imaged thyroid is normal. 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 Thoracic aorta is normal in caliber. Stable moderate cardiomegaly. Calcified right hilar nodes likely sequela prior granulomatous disease. Interval development of a multilobulated, partially loculated moderate right pleural effusion, which measures simple fluid attenuation. There is associated subtotal collapse of the remainder of the right lung. No evidence of active arterial extravasation. Interval increase in size of a trace left pleural effusion with associated left basilar atelectasis. There are persistent areas of peribronchial vascular consolidation, increased in the remainder of the aerated lungs with debris within the distal bronchi. No pneumothorax. Esophagus is nondistended. Postsurgical changes of liver transplant no. Within the imaged abdomen, there is persistent lymphadenopathy throughout the retroperitoneum and mesentery, not significantly changed compared to prior examination, for reference a lymph node in the right upper quadrant mesentery measures 1.0 cm, previously 1.0 cm (series 12, image 260). Spleen is surgically absent. No suspicious osseous lesions. Impression: 1. No evidence of active extravasation within the chest. 2. Interval development of a partially loculated moderate right and trace left pleural effusions, which measure simple fluid in attenuation. Within the remaining aerated lungs, there is increased peribronchovascular consolidation and increased smooth interlobular septal line thickening, favored to represent worsening organizing pneumonia with superimposed pulmonary edema and possibly infectious pneumonia. 3. Stable extensive multistation lymphadenopathy of the chest and imaged abdomen in keeping with post transplant lymphoproliferative disorder. Dictated by: Guido Phillips MD The radiology attending physician has personally reviewed this study, and had reviewed and/or edited this written report and agrees with it. Electronically signed by: Robert Gilman M.D., MPH XR Chest 1 View Narrative: EXAMINATION: 1 view chest radiograph Impression: Comparison is made to prior same-day chest radiographs. Surgical clips project over the right upper quadrant and left upper quadrant. Interval development of right-sided pleural fluid collection. In the setting of recent thoracentesis, this may represent hemothorax versus reaccumulation of pleural effusion. CT chest recommended for further evaluation. Mild bibasilar patchy opacities, which may represent atelectasis and/or infectious/inflammatory process. No pneumothorax. The cardiomediastinal silhouette is partially obscured. Dictated by: Guido Xie M.D. The radiology attending physician has personally reviewed this study, and had reviewed and/or edited this written report and agrees with it. Electronically signed by: Robert Gilman M.D., MPH XR Chest 1 View Narrative: EXAMINATION: 1 view chest radiograph Impression: Comparison is made with multiple same day chest radiographs. Surgical clips project over the right upper quadrant and left upper quadrant. Interval improvement in right-sided pleural effusion, now small. Redemonstrated right basilar airspace opacity, which may represent a combination of pneumonia and atelectasis in the appropriate clinical setting. No left pleural effusion. The left lung is clear. No pneumothorax. Unchanged cardiomediastinal silhouette. Dictated by: Guido Xie M.D. The radiology attending physician has personally reviewed this study, and had reviewed and/or edited this written report and agrees with it. Electronically signed by: Robert Gilman M.D., MPH MRI Spine Total Complete W WO Contrast Narrative: EXAMINATION: 1. Magnetic resonance imaging (MRI) of the cervical spine without and with contrast 2. Magnetic resonance imaging (MRI) of the thoracic spine without and with contrast 3. Magnetic resonance imaging (MRI) of the lumbar spine without and with contrast HISTORY: Back pain, concern for spinal epidural abscess. 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 TECHNIQUE: Multiplanar multi-weighted MRI of the cervical spine was performed without and with intravenous contrast using the standard protocol. Multiplanar multi-weighted MRI of the thoracic was performed without and with intravenous contrast using the standard protocol. Multiplanar multi-weighted MRI of the lumbar spine was performed without and with intravenous contrast using the standard protocol. Contrast information: 12 mL Gadoterate Meglumine COMPARISON: CT neck dated 08/23/2023 FINDINGS: There is no abnormal disc or marrow edema or endplate irregularity. No epidural fluid collection. No abnormal contrast enhancement in the spine. CERVICAL SPINE: There is mild upper cervical kyphosis centered at C3-C4. The craniocervical junction is normal. The visualized portions of the skull base and the posterior fossa are normal. There is motion artifact on the sagittal T2 SPACE sequences contributing to apparent hyperintensity within the cervical cord that is artifactual. The spinal cord demonstrates normal signal intensity on all sequences. Intervertebral disk heights are normal. No spinal canal or neuroforaminal stenosis. Susceptibility artifact in the right neck from metallic clips. Multiple rounded subcentimeter short axis cervical lymph nodes bilaterally. Normal signal voids are present in the vertebral arteries. THORACIC AND LUMBAR SPINE: There are 12 rib bearing thoracic vertebra. The L4 and L5 segments are sacralized. Alignment of the thoracolumbar spine is normal. No compression fractures. Normal spinal cord signal intensity. Conus medullaris terminates at T12-L1 and is normal. Mild L3-L4 degenerative disc disease with height loss and disc desiccation. No spinal canal or neuroforaminal stenosis. 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 Normal caliber aorta. Impression: 1. No evidence of discitis-osteomyelitis or spinal epidural abscess. 2. Incompletely imaged moderately sized loculated right pleural effusion. Dictated by: Alex Farooq M.D. The radiology attending physician has personally reviewed this study, and had reviewed and/or edited this written report and agrees with it. Electronically signed by: Ksenia Chan M.D. 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 agrees and accepts Patient's stated name/ matches armband: Yes Allergies confirmed: yes Consent form signed, dated, timed; matches correct patient, intended procedure and site: Yes Imaging: Pertinent imaging reviewed, correctly oriented and match to patient identifiers Lab/Diag test results: Pertinent lab/diag tests reviewed and match to patient identifiers Supplies, devices and special equipment are available: yes Site/side marked: yes Immediately prior to the procedure a time out was called: a verbal verification by the procedure participants confirmed correct patient identity, correct site/side marked and visible (if applicable); agreement on procedure to be done; and correct patient positioning Preparation: Patient was prepped and draped in usual sterile fashion Patient position: Sitting Location: R posterior Puncture method: [id number] catheter Ultrasound guidance: yes Ultrasound guidance used for: Pre-procedure marking Number of attempts: 2 Drainage characteristics: Serosanguinous Chest x-ray performed: yes Chest x-ray findings: Pleural effusion improved Patient tolerance of procedure: Tolerated well, no immediate complications Post Procedure Debrief: All guidewires, needles, sponges or other items are accounted for: yes Any special post procedure monitoring, testing or other considerations: n/a All specimens identified, labeled and matched to patient identification: yes Responsible libertarian for transporting specimen(s) to lab determined: yes XR Chest Lateral Decubitus Right Narrative: EXAMINATION: XR CHEST LATERAL DECUBITUS RIGHT, XR CHEST LATERAL DECUBITUS LEFT HISTORY: 28-year-old patient with history of liver transplant due to autoimmune hepatitis, located by PTLD and intermittent CMV viremia, 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 COMPARISON: Chest radiograph 10/03/2023 8:47 AM. FINDINGS: Left lateral decubitus chest radiograph: Surgical clips project over the right upper quadrant and left upper quadrant. Redemonstrated moderate right pleural effusion, now layering dependently along the medial pleural space. Redemonstrated right basilar airspace opacity, which may represent a combination of pneumonia and atelectasis in the appropriate clinical setting. No left pleural effusion. The left lung is clear. No pneumothorax. Unchanged cardiomediastinal silhouette. Right lateral decubitus chest radiograph: Surgical clips project over the right upper quadrant and left upper quadrant. Redemonstrated moderate right pleural effusion, now layering dependently along the lateral pleural space. Redemonstrated right basilar airspace opacity, which may represent a combination of pneumonia and atelectasis in the appropriate clinical setting. No left pleural effusion. The left lung is clear. No pneumothorax. Unchanged cardiomediastinal silhouette. Impression: Redemonstrated moderate right pleural effusion and right basilar airspace opacity, which may represent a combination of pneumonia and atelectasis in the appropriate clinical setting. Dictated by: Guido Xie M.D. The radiology attending physician has personally reviewed this study, and had reviewed and/or edited this written report and agrees with it. Electronically signed by: Roxy Mai M.D. 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 COMPARISON: Chest radiograph 10/03/2023 8:47 AM. FINDINGS: Left lateral decubitus chest radiograph: Surgical clips project over the right upper quadrant and left upper quadrant. Redemonstrated moderate right pleural effusion, now layering dependently along the medial pleural space. Redemonstrated right basilar airspace opacity, which may represent a combination of pneumonia and atelectasis in the appropriate clinical setting. No left pleural effusion. The left lung is clear. No pneumothorax. Unchanged cardiomediastinal silhouette. Right lateral decubitus chest radiograph: Surgical clips project over the right upper quadrant and left upper quadrant. Redemonstrated moderate right pleural effusion, now layering dependently along the lateral pleural space. Redemonstrated right basilar airspace opacity, which may represent a combination of pneumonia and atelectasis in the appropriate clinical setting. No left pleural effusion. The left lung is clear. No pneumothorax. Unchanged cardiomediastinal silhouette. Impression: Redemonstrated moderate right pleural effusion and right basilar airspace opacity, which may represent a combination of pneumonia and atelectasis in the appropriate clinical setting. Dictated by: Guido Xie M.D. The radiology attending physician has personally reviewed this study, and had reviewed and/or edited this written report and agrees with it. Electronically signed by: Roxy Mai M.D. XR Chest Pa Lateral 2 Vw Narrative: EXAMINATION: 2 view chest radiograph Impression: Comparison is made to CT dated 08/23/2023. There is moderate right sized pleural effusion. Associated right airspace opacity may represent a combination of pneumonia and atelectasis in the appropriate clinical setting. The left lung is clear. No pneumothorax. Cardiomediastinal silhouette is partially obscured Electronically signed by: Roxy Mai M.D. Assessment/Plan Beka Lares is a 28 y.o. 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 #Acute Hypoxemic Respiratory Failure #Parapneumonic Effusion Likely 2/2 pneumonia, RPP positive for Rhino/Entero. CXR w/ moderate R sided pleural effusion, R airspace opacity possibly pneumonia and atelectasis. S/p thoracentesis in the ED, consistent with a parapneumonic effusion. CT Chest w/ and w/o contrast s/p thoracentesis with partially loculated moderate R and trace L pleural effusions, increased peribronchovascular consolidation and increased smoothinterlobular septal line thickening w/ superimposed pulmonary edema and possibly infectious pneumonia. - Wean supplemental O2 PRN - Continue Vanc/Cefe/Azithro - Duonebs q4h - s/p thoracentesis 10/03, 10/04, chest tube placement 10/04 - f/u thoracentesis studies (leukemia/lymphoma flow, cytology) #Back Pain Likely muscular in nature and iso parapneumonic effusion, Lumbar MRI negative for OM/spinal epidural abscess - Lidocaine patches - 10mg cyclobenzaprine TID prn - Manage conservatively #Liver Transplant 03/1999 c/b PTLD (c-Myc, EBV+) #Autoimmune Hepatitis #CMV Viremia: S/p OLT '99 c/b PTLD diagnosed in 2016, last chemo in 2017 w/ history of long- term CMV viremia. He has had varying degrees of CMV since 2019 and is followed by Dr. Duncan in the ID clinic. He was recently on Maribavir, switched to Foscarnet (EOT 09/07) and Valcyte as he had heterogenous CMV w/ varying resistant types during most recent admission 08/2023. Current home medications are Tacrolimus 0.5mg q48h, Valganciclovir 900mg BID, Ursodiol 600mg daily, Letermovir 480mg, Aldactone 50mg, Lasix 20mg. - Continue tacrolimus 0.5mg q48h - Continue ursodiol 600mg daily - Continue valganciclovir 900mg BID - Continue letermovir 480mg daily - Continue lasix 20mg/aldactone 50mg - Daily tacrolimus levels - Hepatology following, appreciate recs - CMV PCR #ITP s/p Splenectomy 2013 On IVIG q4-6 weeks, most recently received 08/31/23. #Superficial VTE Noted in LUE during previous admission. Dispo: ICU Code Status: Full Code F (Feeding) : NPO Diet A (Analgesia) : NA S (Sedation) : NA T (Thromboembolic) ppx: enoxaparin 40mg daily H (Head of Bed Elevation): Goal: 30 if intubated. Last charted: Patient Position: HOB 30 degrees U (stress Ulcer ppx) : NA G (Glycemic control) : SSI if BG>180 Last BM : Contact : Primary Emergency Contact: Mandy Laresi Radhames, Attending MD to make comment on patient risk/complexity. Wendy Bonds MD PhD Resident Physician, Internal Medicine Cosigned by Lisandra Harper MD at 10/05/2023 12:05 PM MATHEMATICIAN RESEARCH EMATICIAN RESEARCH EMATICIAN RESEARCH Associated attestation - Lisandra Harper MD - 10/05/2023 12:05 PM MATHEMATICIAN RESEARCH Date of service: 10/04/23 I have seen and examined this patient on the day of service. I have reviewed and confirmed the history, physical exam, laboratory and radiographic data with the resident/FERNANDO as documented in his/her note. I have reviewed and discussed my treatment plan with the ICU team and other medical/consultantstaff. * Neil Odell MD - 10/03/2023 6:04 PM CST Hepatology Immunosuppression Note 28 year old male with AIH s/p OLTx 2 c/b PTLD ( c-Myc, EBV+) s/p CHOP x 1 (2016), DA-EPOCH-R x 5 (09/2017-12/2017) with IT MTX, ITP s/p splenectomy on IVIG p/w acute R sided back pain, productive cough and dyspnea on exertion. Evaluation notable for leukocytosis, RVP +ve Rhino/Enterovirus. His CXR de monstrate R sided pleural effusion. He underwent thoracentesis w/ 500cc removed. He developed inc oxygen requirements up to 3L. CT Chest showing a moderate partially loculated effusion w/ bilateral consolidations c/f organizing pneumonia superimposed by pulmonary edema. He is planned for ICU admission. He is being treated with vanc/cefepime. His immunosuppression regiment is notable for tacrolimus 0.5mg qOD, valganciclovir, ursodiol 900mg BID, and letermovir. His post transplant course is complicated by chronic rejection and periportal fibrosis. His LFTs demonstrate chronic cholestasis w/ no acute worsening currently. TB 5.4 (baseline 4-5), ALP 180 (150-200), nml AST/ALT. Recent tacro troughs 09/18 11.5 Plan - Continue his home tacrolimus 0.5mg qOD - Check daily tacrolimus troughs (draw 30-60 minutes before AM dose) - Continue home alganciclovir, ursodiol 900mg BID, and letermovir. - Appreciate primary care team mgmt of his pneumonia We will continue to follow-up with you. Thank you for involving us in the care of this patient. If you have any questions, please call the hepatology GI pager during weekdays or the triple GI phone during after hours and weekends. Neil Odell MD EMATICIAN RESEARCH documented in this encounter H&P Notes * Jessica Sapp MD - 10/03/2023 9:23 PM CST MICU HISTORY AND PHYSICAL Patient: Beka Lares Room: [facility] CC-[id number]/[id number] Primary Care Physician: Beka Nick MD Service Attending: Dr. Esequiel Maldonado SUBJECTIVE Chief Complaint: Chief Complaint Patient presents with Cough Back Pain HISTORY OF PRESENT ILLNESS Beka Lares is a 28 y.o. 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 Patient was endorsing cough and back pain for the last week, notes that he developed pain to the R lower back last Wednesday and attempted Tylenol and heating pads w/o relief, back pain spread to throughout the back. He developed a productive cough w/ thick white/yellow sputum and worsening ALSTON the day after, notes the cough was waking him up at night. He endorsed some chills, Tmax 100.2 and mild pleuritic chest pain with his cough. He was seen at an OSH Wednesday, diagnosed w/ R sided pneumonia andwas discharged with doxycycline 100mg and amox-clav 875-125mg BID. He denies any nausea, vomiting, diarrhea or constipation, endorsed some pain with urination. Notably, had a previous hospitalization 08/23-09/03 for elevated LFTs, E coli bacteremia ([facility]), and CMV viremia. Vitals in the ED T 98.1, HR 102, RR 18, BP 114/74, 93% on RA. Labs notable for WBC 17.1, Hgb 12.1, Platelets 211, Na 135, K 4.9, CO2 21, BUN 35, Cr 1.17, Tbili 5.4, Albumin 2.8, Alk phos 181, AST/ALT 40/30, LDH 293, Lactate 1, INR 1.47, RPP + Rhino/Entero, Tacrolimus 8.9, VBG pH 7.3/pCO2 40, blood cultures pending. UA w/ 1+ bili, neg nitrites, LE. CXR w/ moderate R sided pleural effusion, R airspace opacity possibly pneumonia and atelectasis. CTChest w/ and w/o contrast with partially loculated moderate R and trace L pleural effusions, increased peribronchovascular consolidation and increased smooth interlobular septal line thickening w/ superimposed pulmonary edema and possibly infectious pneumonia. Lumbar spine MRI w/o evidence of OM or spinal epidural abscess. In the ED, thoracentesis was performed with 500cc fluid removed. Thora labs notable for LDH 306, Protein 3.3, Nuc cells 631, cultures NGTD. He noted some improvement in breathing s/p thoracentesis, but subsequently became tachycardic to 120s with increased work of breathing, requiring BiPAP. On CXRs/p thoracentesis, no pneumothorax noted. He was started on vanc/cefe. Upon presentation to the MICU, vitals are BP 134/67, RR 24, HR 118, 96% on FiO2 40. Past Medical/Surgical History: Past Medical History: Diagnosis Date Cancer (CMS/HCC) [...] BIOPSY LYMPH NODE SUPERFICIAL LEFT N/A 10/07/2021 Home Meds: (Not in a hospital admission) Allergies: Patient has no known allergies. Family History: Family History Problem Relation Age of Onset Rectal cancer Mother Rectal cancer - (Added by TW Conv) No Known Problems Father Diabetes type II Sister Family history of type 2 diabetes mellitus - (Added by TW Conv) Anesthesia problems Other Social History: Social History Tobacco Use Smoking status: Never Smokeless tobacco: Current Types: Chew Substance and Sexual Activity Drug use: Yes Types: Alcohol Sexual activity: Defer Alcohol Use: Alcohol Misuse (09/01/2023) AUDIT-C Frequency of Alcohol Consumption: Monthly or less Average Number of Drinks: 5 or 6 Frequency of Binge Drinking: Monthly Scheduled Medications: cefepime, 2,000 mg, intravenous, Q12H PIPPA lidocaine, 1 patch, transdermal, Q24H [START ON 10/04/2023] tacrolimus, 0.5 mg, oral, Q48H vancomycin, 15 mg/kg, intravenous, Q12H Continuous Medications: PRN Medications: Review of Systems: Review of Systems Constitutional: Positive for chills and fever. Respiratory: Positive for cough and shortness of breath. Cardiovascular: Positive for chest pain. Negative for palpitations and leg swelling. Gastrointestinal: Positive for abdominal pain. Negative for blood in stool, constipation, diarrhea,nausea and vomiting. Genitourinary: Positive for dysuria. Musculoskeletal: Positive for back pain. OBJECTIVE Vital Signs: Most Recent: Vitals: 10/03/231929 BP: 141/79 Pulse: (!) 127 Resp: (!) 37 Temp: SpO2: 97% I/O: No intake or output data in the 24 hours ending 10/03/232122 Vent settings: FiO2 (%): [40 %] 40 %.vent Hemodynamic parameters for last 24 hours: Physical Exam: General: Does not appear in acute distress, on BiPAP Eyes: No conjunctival pallor or injection, no icterus Cardiac: Tachycardic, 2+ peripheral pulses, no LE edema, no JVD Pulm: Clear bilaterally with adequate effort GI/Abd: Soft, nontender, nondistended; normoactive bowel sounds, abdominal scar present : MSK: no joint effusions or major deformities Skin: No rash or bruises Extremities: Warm and well perfused Neuro: AAO x 3, CN II-XII grossly intact, moves all extremities spontaneously Lab/Radiology/Diagnostic Review Laboratory review: Lab results in the last 12 hours: Recent Results (from the past 12 hour(s)) Lactate dehydrogenase, body fluid Collection Time: 10/03/23 12:00 PM Result Value Ref Range Specimen type, fld Pleural LD, fld 306 Units/L Protein, body fluid Collection Time: 10/03/23 12:00 PM Result Value Ref Range Specimen type, fld Pleural Protein, fld 3.3 g/dL Cell count with reflex to differential, body fluid Collection Time: 10/03/23 12:00 PM Result Value Ref Range Specimen type, fld Pleural Color, fld Jany Clarity, fld Cloudy (A) Clear Nucleated cells, fld 631 /cumm RBC, fld 7,878 /cumm Aerobic and anaerobic culture and gram stain Pleural fluid Pleural cavity Collection Time: 10/03/23 12:00 PM Specimen: Pleural cavity; Pleural fluid Result Value Ref Range Direct Specimen Exam Stain: Cytospin Gram stain shows: Few polymorphonuclear leukocytes seen. Red blood cells present. Other cellular material present. No organisms seen. Cell Differential, Body Fluid Collection Time: 10/03/23 12:00 PM Result Value Ref Range Total cells diffed 100 cells Neutrophils, fld 19 % Lymphs, fld 51 % Monocyte, fld 16 % Macrophages, fld 14 % Glucose, body fluid Collection Time: 10/03/23 12:00 PM Result Value Ref Range Specimen type, fld Pleural Glucose, fld 99 mg/dL Urinalysis reflex to microscopic and culture Urine Collection Time: 10/03/23 5:25 PM Specimen: Urine Result Value Ref Range Color, ur Yellow Yellow Clarity, ur Clear Clear Specific gravity, ur 1.039 (H) 1.003 - 1.030 pH, urine 6.0 Protein, ur ql Trace Negative Glucose, ur ql Negative Negative Ketones, ur Trace Negative Bilirubin, ur 1+ (A) Negative Blood, ur Negative Negative Urobilinogen, ur <2.0 <2.0 mg/dL Nitrite, ur Negative Negative Leukocyte esterase, ur Negative Negative UA reflex comment Reflex conditions for microscopic UA and culture not met. Blood gas, venous Collection Time: 10/03/23 5:58 PM Result Value Ref Range pH, Venous 7.30 (L) 7.32 - 7.43 PCO2, Venous 40 40 - 50 mmHg PO2, Venous 74 mmHg HCO3 Venous, Calculated 20 20 - 30 mmol/L BE, venous -6 mmol/L Comprehensive metabolic panel Collection Time: 10/03/23 10:06 PM Result Value Ref Range Sodium 131 (L) 135 - 145 mmol/L Potassium, pl 5.4 (H) 3.3 - 4.9 mmol/L Chloride 102 97 - 110 mmol/L CO2 21 (L) 22 - 32 mmol/L Anion gap 8 2 - 15 mmol/L BUN 34 (H) 6 - 25 mg/dL Creatinine 1.13 0.80 - 1.30 mg/dL Glucose 93 70 - 199 mg/dL Calcium 8.5 8.5 - 10.3 mg/dL Bilirubin, total 6.1 (H) 0.1 - 1.2 mg/dL Protein, pl 5.0 (L) 6.5 - 8.5 g/dL Albumin 2.8 (L) 3.5 - 5.0 g/dL Alk phos 182 (H) 40 - 130 Units/L ALT 30 7 - 55 Units/L AST 36 10 - 50 Units/L Magnesium Collection Time: 10/03/23 10:06 PM Result Value Ref Range Magnesium 1.8 1.4 - 2.5 mg/dL Phosphorus Collection Time: 10/03/23 10:06 PM Result Value Ref Range Phosphorus, pl 4.5 2.3 - 4.5 mg/dL Lactate Collection Time: 10/03/23 10:06 PM Result Value Ref Range Lactate 1.1 0.7 - 2.0 mmol/L CBC with auto differential Collection Time: 10/03/23 10:06 PM Result Value Ref Range WBC 14.8 (H) 3.8 - 9.9 K/cumm Hgb 11.4 (L) 13.0 - 17.5 g/dL Hct 30.0 (L) 38.9 - 50.3 % Plt 223 150 - 400 K/cumm MPV 10.9 9.1 - 12.3 fL RBC 2.88 (L) 4.30 - 5.80 M/cumm MCV 104.2 (H) 81.3 - 96.4 fL MCH 39.6 (H) 27.1 - 33.3 pg MCHC 38.0 (H) 32.3 - 35.7 g/dL RDW CV 16.5 (H) 11.1 - 14.9 % RDW SD 62.8 (H) 35.7 - 48.1 fL NRBC abs 0.00 0.00 - 0.01 K/cumm eGFR Collection Time: 10/03/23 10:06 PM Result Value Ref Range eGFR 90 >=60 mL/min/1.73 m2 Manual Differential Collection Time: 10/03/23 10:06 PM Result Value Ref Range Differential Manual Cells Counted 119 Neutrophil abs 9.7 (H) 1.7 - 6.5 K/cumm Imm gran abs 0.2 (H) 0.0 - 0.1 K/cumm Lymphocyte abs 1.4 0.8 - 3.3 K/cumm Monocyte abs 3.1 (H) 0.2 - 0.8 K/cumm Eosinophil abs 0.1 0.0 - 0.5 K/cumm Basophil abs 0.2 (H) 0.0 - 0.1 K/cumm Neutrophil pct 65.6 % Lymphocyte pct 9.2 % Monocyte pct 21.0 % Eosinophil pct 0.8 % Basophil pct 1.7 % Metamyelocyte pct 1.7 % POCT glucose Collection Time: 10/03/23 10:12 PM Result Value Ref Range Glucose, POC 382 (H) 70 - 199 mg/dL CT Chest W WO Contrast Result Date: 10/03/2023 1. No evidence of active extravasation within the chest. 2. Interval development of a partially loculated moderate right and trace left pleural effusions, which measure simple fluid in attenuation. Within the remaining aerated lungs, there is increased peribronchovascular consolidation and increased smooth interlobular septal line thickening, favored to represent worsening organizing pneumonia with superimposed pulmonary edema and possibly infectious pneumonia. 3. Stable extensive multistation lymphadenopathy of the chest and imaged abdomen in keeping with post transplant lymphoproliferative disorder. Dictated by: Guido Phillips MD The radiology attending physician has personally reviewed this study, and had reviewed and/or edited this written report and agrees with it. Electronically signed by: Robert Gilman M.D., MPH XR Chest 1 View Result Date: 10/03/2023 Comparison is made to prior same-day chest radiographs. Surgical clips project over the right upperquadrant and left upper quadrant. Interval development of right-sided pleural fluid collection. In the setting of recent thoracentesis, this may represent hemothorax versus reaccumulation of pleural effusion. CT chest recommended for further evaluation. Mild bibasilar patchy opacities, which may represent atelectasis and/or infectious/inflammatory process. No pneumothorax. The cardiomediastinal silhouette is partially obscured. Dictated by: Guido Xie M.D. The radiology attending physician has personally reviewed this study, and had reviewed and/or edited this written report and agrees with it. Electronically signed by: Robert Gilmna M.D., MPH XR Chest 1 View Result Date: 10/03/2023 Comparison is made with multiple same day chest radiographs. Surgical clips project over the right upper quadrant and left upper quadrant. Interval improvement in right-sided pleural effusion, now small. Redemonstrated right basilar airspace opacity, which may represent a combination of pneumonia and atelectasis in the appropriate clinical setting. No left pleural effusion. The left lung is clear. No pneumothorax. Unchanged cardiomediastinal silhouette. Dictated by: Guido Xie M.D. Theradiology attending physician has personally reviewed this study, and had reviewed and/or edited this written report and agrees with it. Electronically signed by: Robert Gilman M.D., MPH MRI Spine Total Complete W WO Contrast Result Date: 10/03/2023 1. No evidence of discitis-osteomyelitis or spinal epidural abscess. 2. Incompletely imaged moderately sized loculated right pleural effusion. Dictated by: Alex Farooq M.D. The radiology attending physician has personally reviewed this study, and had reviewed and/or edited this written report and agrees with it. Electronically signed by: Ksenia Chan M.D. XR Chest Lateral Decubitus Right Result Date: 10/03/2023 Redemonstrated moderate right pleural effusion and right basilar airspace opacity, which may represent a combination of pneumonia and atelectasis in the appropriate clinical setting. Dictated by: Guido Xie M.D. The radiology attending physician has personally reviewed this study, and had r eviewed and/or edited this written report and agrees with it. Electronically signed by: Roxy Mai M.D. XR Chest Lateral Decubitus Left Result Date: 10/03/2023 Redemonstrated moderate right pleural effusion and right basilar airspace opacity, which may represent a combination of pneumonia and atelectasis in the appropriate clinical setting. Dictated by: Guido Xie M.D. The radiology attending physician has personally reviewed this study, and had r eviewed and/or edited this written report and agrees with it. Electronically signed by: Roxy Mai M.D. XR Chest Pa Lateral 2 Vw Result Date: 10/03/2023 Comparison is made to CT dated 08/23/2023. There is moderate right sized pleural effusion. Associated right airspace opacity may represent a combination of pneumonia and atelectasis in the appropriate clinical setting. The left lung is clear. No pneumothorax. Cardiomediastinal silhouette is partially obscured Electronically signed by: Roxy Mai M.D. ASSESSMENT AND PLAN Beka Lares is a 28 y.o. 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 #Acute Hypoxemic Respiratory Failure #Parapneumonic Effusion Likely 2/2 pneumonia, RPP positive for Rhino/Entero. CXR w/ moderate R sided pleural effusion, R airspace opacity possibly pneumonia and atelectasis. S/p thoracentesis in the ED, consistent with a parapneumonic effusion. CT Chest w/ and w/o contrast s/p thoracentesis with partially loculated moderate R and trace L pleural effusions, increased peribronchovascular consolidation and increased smoothinterlobular septal line thickening w/ superimposed pulmonary edema and possibly infectious pneumonia. - Wean BiPAP as tolerated - Continue Vanc/Cefe/Azithro - Duonebs q4h - Consider chest tube placement in the morning #Back Pain Likely muscular in nature and iso parapneumonic effusion, Lumbar MRI negative for OM/spinal epidural abscess - Lidocaine patches - Manage conservatively #Liver Transplant 03/1999 c/b PTLD (c-Myc, EBV+) #Autoimmune Hepatitis #CMV Viremia: S/p OLT ' c/b PTLD diagnosed in 2016, last chemo in 2018 w/ history of long- term CMV viremia. He has had varying degrees of CMV since 2019 and is followed [address] Dr. Ducnan in the ID clinic. He was recently on Maribavir, switched to Foscarnet (EOT 09/07) and Valcyte as he had heterogenous CMV w/ varying resistant types during most recent admission 08/2023. Current home medications are Tacrolimus 0.5mg q48h, Valganciclovir 900mg BID, Ursodiol 600mg daily, Letermovir 480mg, Aldactone 50mg, Lasix 20mg. - Continue tacrolimus 0.5mg q48h - Continue ursodiol 600mg daily - Continue valganciclovir 900mg BID - Continue letermovir 480mg daily - Continue lasix 20mg/aldactone 50mg - Daily tacrolimus levels - Hepatology following, appreciate recs - CMV PCR #ITP s/p Splenectomy 2013 On IVIG q4-6 weeks, most recently received 08/31/23. #Superficial VTE Noted in LUE during previous admission, not on anticoagulation F (Feeding): NPO A (Analgesia): N/A S (Sedation): None T (Thromboembolic) ppx: Lovenox H (Head of Bed Elevation): 30 U (stress Ulcer ppx): None G (Glycemic control): None Code status: Full Code Jessica Sapp MD PGY2 Internal Medicine Cosigned by Esequiel Maldonado MD at 10/04/2023 6:53 AM MATHEMATICIAN RESEARCH EMATICIAN RESEARCH EMATICIAN RESEARCH EMATICIAN RESEARCH EMATICIAN RESEARCH Associated attestation - Esequiel Maldonado MD - 10/04/2023 6:53 AM MATHEMATICIAN RESEARCH Critical Care Time: I have spent 40 minutes in full attendance with this critically ill patient making frequent reassessments and decisions regarding this patient's complex medical care. Critical care time was exclusive of separately billable procedures, treating other patients and teaching time. Critical care was necessary to treat or prevent imminent or life-threatening deterioration of the following conditions:acute resp failure with hypoxemia My Assessment and Plan: Acute resp failure with hypoxemia: secondary to pna complicated by parapneumonic effusion (culturespending). Broad spectrum abx, wean bipap as tolerated. Pneumonia with parapneumonic effusion: effusion exudative by lab analysis, cultures pending. Abx per above. He will likely need a CT (possibly multiple), given loculations on CT will further examine in the am to determine if the ICU team or IP will place. S/p orthotopic liver transplant: continue tacro, consult liver transplant service in the am. Recurrent CMV viremia: continue outpatient valganciclovir and letermovir, check CMV pcr. Attending Documentation: I have seen and examined this patient on the day of service. I have reviewed and confirmed the history, physical exam, laboratory and radiographic data with the house staff as documented in the ICU resident note. I have reviewed and discussed my treatment plan with the ICU team and other medical/consultant teacher staff. Esequiel Maldonado MD documented in this encounter Procedure Notes * David Saab MD - 10/04/2023 3:12 PM CSTAssociated Order(s): Chest Tube Insertion Post-Procedure Diagnose(s): Parapneumonic effusion Chest Tube Insertion Date/Time: 10/04/2023 3:12 PM Performed by: David Saab MD Authorized by: David Saab MD [place] Protocol: RN Notified of Procedure: yes Informed consent: Risks, benefits, alternatives discussed and patient/hvac sales representative/guardian agrees and accepts Patient's stated name/ matches armband: Yes Allergies confirmed: yes Consent form signed, dated, timed; matches correct patient, intended procedure and site: Yes Imaging: Pertinent imaging reviewed, correctly oriented and match to patient identifiers Lab/Diag test results: Pertinent lab/diag tests reviewed and match to patient identifiers Supplies, devices and special equipment are available: yes Site/side marked: yes Indications: pleural effusion Skin prepararion: Skin prepped with 2% chlorhexidine Anesthesia (see MAR for exact dosage) Anesthesia method: Local infiltration Local anesthetic: Lidocaine 1% Patient sedated: No Placement location: Right lateral Ultrasound used for: site marking Tube size (Citizen Of [place]): 14 Tube type: Pigtail Tube connected to: Suction Drainage characteristics: Serous Suture material: 0 silk Dressing: Impervious dressing Post-insertion x-ray findings: tube in good position Patient tolerance: Patient tolerated the procedure well with no immediate complications Post Procedure Debrief: All guidewires, needles, sponges or other items are accounted for: yes Any special post procedure monitoring, testing or other considerations: n/a All specimens identified, labeled and matched to patient identification: yes Responsible libertarian for transporting specimen(s) to lab determined: n/a Cosigned by Lisandra Harper MD at 10/05/2023 12:04 PM MATHEMATICIAN RESEARCH EMATICIAN RESEARCH EMATICIAN RESEARCH Associated attestation - Lisandra Harper MD - 10/05/2023 12:04 PM MATHEMATICIAN RESEARCH I was present for the entire procedure. documented in this encounter Consult Notes * Obinna Donahue MD - 10/11/2023 3:40 PM CSTAssociated Order(s): CONSULT TO PULMONARY - INTERVENTIONAL INPATIENT INTERVENTIONAL PULMONARY CONSULTATION Date of service: 10/11/2023 Physician requesting consult: Dr. Chelsi Weinberg Reason for consultation: Chest tube management History of Present Illness Mr. Lares is a 28 yo M w/ PMH of autoimmune hepatitis s/p OLT in 1998 now complicated by PTLD diagnosed in 2017 s/p R-CHOP then DA-EPOCH-R and IT MTX, hx of refractory ITP s/p splenectomy, and recenthospitalization for E. coli bacteremia who presents with cough and concern for PNA complicated by Rt parapneumonic effusion. The patient initially presented to the hospital on 10/03/23 at which time he had been having back pain which was eventually accompanied by a cough productive of thick yellow sputum. He states he had the slow onset of worsening Rt back pain since the Wednesday prior to admission. He had sought care for the shortness of breath at a local ER and was given antibiotics, however he states these only made asmall difference for a short time, and he then had rapid return of his dyspnea requiring him to present to [facility]. He was initially admitted to the ICU for AHRF requiring BiPAP. He was noted on CXR thenCT to have a large loculated Rt pleural effusion. There was concern for parapneumonic effusion, sobia Rt chest tube was placed. Pleural fluid cultures have been negative, with only aerobic cultures sent at time of placement. A pleural fluid fungal culture is resulted on 10/08/23, however it is unclear if this was obtained in sterile fashion, as there is not an additional thoracentesis note, so I suspect this was drawn off of the [facility]. The patient has since improved on antibiotic coverage (no antifungal agents started). He has had significant improvement in his CXR post-chest tube placement. He additionally states that he is feeling better, and has had improvement in his prior chest pain and dyspnea. No further F/C/NS. He follows with Dr. Gillespie for his PTLD, and continues on CMV prophylaxis. Past Medical History: Diagnosis Date Cancer (CMS/HCC) [...] BIOPSY LYMPH NODE SUPERFICIAL LEFT N/A 10/07/2021 Social History Tobacco Use Smoking status: Never [...] (Added by TW Conv) Anesthesia problems Other Review of Systems Review of systems per HPI and otherwise all other systems are negative Current Facility-Administered Medications Medication Dose Route Frequency Last Rate Last Admin benzocaine-menthoL (CHLORASEPTIC) lozenge 1 lozenge 1 lozenge mouth/throat Q2H PRN 1 lozenge at 10/10/23 2217 benzonatate (TESSALON) capsule 100 mg 100 mg oral TID PRN 100 mg at 10/10/23 221 Carrier Fluids for Secondary Infusion - 0.9% Sodium Chloride 30 mL intravenous PRN cefepime (MAXIPIME) 2,000 mg/20 mL in sterile water (premix) 2,000 mg 2,000 mg intravenous Q8H PIPPA Stopped at 10/11/23 0831 enoxaparin (LOVENOX) syringe 40 mg 40 mg subcutaneous Daily-2100 40 mg at 10/09/232023 [Held by Provider] furosemide (LASIX) tablet 20 mg 20 mg oral Daily 20 mg at 10/11/23 0822 ipratropium-albuteroL (DUO-NEB) 0.5-2.5 mg/3 mL nebulizer solution 3 mL 3 mL nebulization Q4H PRN (RT) letermovir (PREVYMIS) tablet 480 mg 480 mg oral Daily 480 mg at 10/11/23 0822 lidocaine (ASPERCREME) 4 % patch 1 patch 1 patch transdermal Q24H 1 patch at 10/05/23 2158 methyl salicylate-menthol 15-1 % cream topical QID PRN Given at 10/04/23 1223 ondansetron (ZOFRAN) injection 4 mg 4 mg intravenous Q6H PRN sodium chloride 0.9% flush 0.5-20 mL 0.5-20 mL intra-catheter Q8H PIPPA 10 mL at 10/11/23 1308 sodium chloride 0.9% flush 0.5-20 mL 0.5-20 mL intra-catheter PRN 10 mL at 10/10/23 0054 spironolactone (ALDACTONE) tablet 50 mg 50 mg oral Daily 50 mg at 10/11/23 0822 tacrolimus immediate-release capsule 0.5 mg 0.5 mg oral Every other day 0.5 mg at 10/10/23 0839 ursodioL (ACTIGALL) capsule 600 mg 600 mg oral Daily with dinner 600 mg at 10/10/23 1723 valGANciclovir (VALCYTE) tablet 900 mg 900 mg oral BID 900 mg at 10/11/23 0822 No Known Allergies Physical Examination Vitals: 10/11/23 0730 BP: 108/57 Pulse: 88 Resp: 23 Temp: 36.7 ??C (98 ??F) SpO2: 97% Gen: NAD, seated comfortably HEENT: NC/AT, EOMI, sclera anicteric, MMM Neck: No JVD, LAD, or thyromegaly CV: RRR, no m/r/g Lungs: CTAB, equal expansion b/l. Rt chest tube in place with no drainage. Abdomen: Soft, NTND, BS+ Ext: WWP, no c/c/e Neuro: CN II-XII grossly intact, no focal deficits Psych: Appropriate mood and affect I/O last 3 completed shifts: In: 420 [P.O.:360; I.V.:20; IV Piggyback:40] Out: 1410 [Urine:1410] I/O this shift: In: 20 [IV Piggyback:20] Out: - Data Lab Results Component Value Date WBC 6.3 10/11/2023 HGB 10.3 (L) 10/11/2023 HCT 28.0 (L) 10/11/2023 MCV 103.7 (H) 10/11/2023 LABPLAT 220 10/11/2023 Lab Results Component Value Date GLUCOSE 119 10/11/2023 CALCIUM 7.8 (L) 10/11/2023 SODIUM 137 10/11/2023 POTASSIUM 4.8 10/11/2023 CO2 18 (L) 10/11/2023 CHLORIDE 110 10/11/2023 BUNSER 35 (H) 10/11/2023 CREATININE 0.84 10/11/2023 Micro: Radiology: CXR this AM with Rt chest tube in place. There is minimal residual Rt effusion with no PTX. There is a small to moderate left pleural effusion. Assessment/Plan Parapneumonic effusion Assessment & Plan Mr. Lares is a 28 yo M w/ PMH of autoimmune hepatitis s/p OLT in 1998 now complicated by PTLD diagnosed in 2017 s/p R-CHOP then DA-EPOCH-R and IT MTX, hx of refractory ITP s/p splenectomy, and recenthospitalization for E. coli bacteremia who presents with cough and concern for PNA complicated by Rt parapneumonic effusion. Patient's effusion is likely most consistent with a parapneumonic effusion. Fluid was exudative (protein 3.3, LDH 306) but with normal glucose and negative cultures. Patient is improving on antibiotics. - Pulled chest tube at bedside today - Agree with ID concerning antimicrobials and duration Thank you for this interesting consult, Interventional Pulmonology will sign off. To reach the Interventional Pulmonology fellow on weekdays from 06:00 to 18:00, please page [phone]. On weekends or after hours (from 18:00 - 06:00), please page the on-call culled fruit packer as ronny Scott. Obinna Donahue MD Interventional Manager Instrumentation 10/11/2023 3:40 PM Cosigned by Fredi Mendez Chi, MD at 10/16/2023 9:59 AM MATHEMATICIAN RESEARCH EMATICIAN RESEARCH EMATICIAN RESEARCH Associated attestation - Fredi Mendez Chi, MD - 10/16/2023 9:59 AM MATHEMATICIAN RESEARCH I have seen and examined the patient on 10/11/23. I agree with the findings and plan of care as documented in the resident's/fellow's note.. * Anabel Cullen, - 10/07/2023 5:25 PM CSTAssociated Order(s): CONSULT TO TRANSPLANT INFECTIOUS DISEASE Infectious Disease Initial Consult Note Infectious Disease Team: Transplant Contact Information: Please see EPIC Treatment Team listing for up-to-date contact information. Requesting Physician: Lisandra Harper* Reason for Consult: Diagnostic and treatment recommendations, as well as assistance with follow up care. Subjective HPI: Beka Lares is a 28 y.o. old male who presented to the ER with shortness of breath. He has a history of liver transplant in 1998 due to autoimmune hepatitis, which was c/b PTLD diagnosed in 2017, last chemo in 2018, and long- term intermittent CMV viremia, ITP s/p splenectomy on IVIG and LUE superficial VTE. He has had a productive cough for one weeks with back pain (right lower at first, then spread diffusely). Sputum has been thick white/yellow. Low grade fevers at home. Was seen at OSH 10/05, diagnosed with R sided pneumonia and discharged with doxy and amox-clav. In the ER BP stable, tachycardic with SpO2 93% on room air. RVP + rhino/entero. Chest imaging with partially loculated moderate R effusion and increased peribornchovascular consolidation and increase smooth interlobular septal line thicking w/ superimposed pulmonary edema. Thoracentesis with drainage of 500cc exudative fluid, cultures with few PMNLs on stain, NGTD. Per records, after drainage breathing initially improvedthen he got worse and required BiPAP. CXR with no new pneumothorax. Most recently hospitalized 08/23-09/03 with elevated LFT's, E coli bacteremia, and CMV viremia. Bacteremia thought to be 2/2 cholangitis. Was discharged on foscarnet 600mg IV q12h through 09/07, valcyte 900mg PO BID ,and Cipro 750mg PO BID through 09/06 Past Medical History: No date: Cancer (CMS/HCC) [...] PICC LINE PLACEMENT > 5 YEARS; N/A 1999: LIVER TRANSPLANT 01/06/2019: OTHER SURGICAL HISTORY Comment: [...] NODE SUPERFICIAL LEFT; N/A HOME MEDICATIONS : 0.9 % sodium chloride (sodium chloride 0.9%) parenteral solution budesonide (PULMICORT) 0.5 mg/2 mL nebulizer solution furosemide (LASIX) 20 mg tablet INV-[facility] heparin lock flush, porcine, letermovir (PREVYMIS) 480 mg tablet magnesium oxide (MAG-OX) 400 mg (241.3 mg elemental magnesium) tablet spironolactone (ALDACTONE) 50 mg tablet tacrolimus 0.5 mg immediate-release capsule ursodioL (ACTIGALL) 300 mg capsule valGANciclovir (VALCYTE) 450 mg tablet Current Facility-Administered Medications Ordered in Epic Medication Dose Route Frequency Provider Last Rate Last Admin Carrier Fluids for Secondary Infusion - 0.9% Sodium Chloride 30 mL intravenous PRN Jessica Sapp MD cefepime (MAXIPIME) 2,000 mg/20 mL in sterile water (premix) 2,000 mg 2,000 mg intravenous Q8H [facility] Wendy Bonds MD PhD 240 mL/hr at 10/07/23 1644 2,000 mg at 10/07/23 1644 enoxaparin (LOVENOX) syringe 40 mg 40 mg subcutaneous Daily-2099 Lisandra Harper MD 40 mgat 10/06/23 211 furosemide (LASIX) tablet 20 mg 20 mg oral Daily Wendy Bonds MD PhD 20 mg at 10/07/23 0817 ipratropium-albuteroL (DUO-NEB) 0.5-2.5 mg/3 mL nebulizer solution 3 mL 3 mL nebulization Q4H PRN (RT) Wendy Bonds MD PhD letermovir (PREVYMIS) tablet 480 mg 480 mg oral Daily Jessica Sapp MD 480 mg at 10/07/23 0817 lidocaine (ASPERCREME) 4 % patch 1 patch 1 patch transdermal Q24H Ileana Tucker MD 1 patch at 10/05/23 2158 methyl salicylate-menthol 15-1 % cream topical QID PRN Wendy Bonds MD PhD Given at 10/04/23 1223 ondansetron (ZOFRAN) injection 4 mg 4 mg intravenous Q6H PRN Jessica Sapp MD oxyCODONE (ROXICODONE) tablet 5 mg 5 mg oral Q6H PRN Wendy Bonds MD PhD polyethylene glycol (MIRALAX) packet 17 g 17 g oral Daily Wendy Bonds MD PhD sodium chloride 0.9% flush 0.5-20 mL 0.5-20 mL intra-catheter Q8H PIPPA Jessica Sapp MD 10 mL at 10/07/23 1302 sodium chloride 0.9% flush 0.5-20 mL 0.5-20 mL intra-catheter PRN Jessica Sapp MD [Held by Provider] spironolactone (ALDACTONE) tablet 50 mg 50 mg oral Daily Jessica Sapp MD tacrolimus immediate-release capsule 0.5 mg 0.5 mg oral Every other day Wendy Bonds MD PhD 0.5 mg at 10/06/23 1406 ursodioL (ACTIGALL) capsule 600 mg 600 mg oral Daily with dinner Jessica Sapp MD 600 mg at 10/06/23 1825 valGANciclovir (VALCYTE) tablet 900 mg 900 mg oral BID Jessica Sapp MD 900 mg at 10/07/23 0817 No current [facility]-ordered outpatient medications on file. Anti-infectives (From admission, onward) Start Dose/Rate Route Frequency Ordered Stop 10/04/23 0900 letermovir (PREVYMIS) tablet 480 mg 480 mg oral Daily 10/03/23 2357 03/27/24 0859 10/04/23 0900 cefepime (MAXIPIME) 2,000 mg/20 mL in sterile water (premix) 2,000 mg 2,000 mg 240 mL/hr over 5 Minutes intravenous Every 8 hours scheduled 10/04/23 0845 10/10/23 1659 10/04/23 0030 valGANciclovir (VALCYTE) tablet 900 mg 900 mg oral 2 times daily 10/03/23 2357 03/19/24 2059 Active Lines/Ports/Devices: Peripheral IV 10/03/23 20 G Anterior;Distal;Left;Upper Arm (Active) Number of days: 4 Chest Tube Right (Active) Number of days: 3 Patient Allergies: No Known Allergies Social History Social History Narrative Living Situation: Residential institution 10/05/17 (Added by TW Conv) reports that he has never smoked. His smokeless tobacco use includes chew. He reports current drug use. Drug: Alcohol. Patient reports consuming alcoholic drinks monthly or less, with a daily consumption of drinks. Patient also reports monthly consumption of 6 or more alcoholic drinks at one occasion. Sexual activity questions deferred to the physician. Family history reviewed and non-contributory Family History Problem Relation Age of Onset Rectal cancer Mother Rectal cancer - (Added by TW Conv) No Known Problems Father Diabetes type II Sister Family history of type 2 diabetes mellitus - (Added by TW Conv) Anesthesia problems Other Review of Systems: Review of Systems Constitutional: Negative for chills and fever. HENT: Negative for mouth sores, rhinorrhea, sinus pressure and sinus pain. Respiratory: Positive for cough and shortness of breath. Gastrointestinal: Negative for nausea and vomiting. Genitourinary: Negative for dysuria. Musculoskeletal: Positive for back pain. Skin: Negative for rash and wound. Neurological: Negative for headaches. Objective Vitals: 24hr Min/Max: Temp Min: 36.6 ??C (97.9 ??F) Max: 37.1 ??C (98.8 ??F) Pulse Min: 90 Max: 109 BP Min: 108/60 Max: 120/61 Resp Min: 19 Max: 31 SpO2 Min: 94 % Max: 97 % I/O last 2 completed shifts: In: 1180 [P.O.:1160; IV Piggyback:20] Out: 2024 [Urine:1925; Chest Tube:100] Physical Exam: Physical Exam Constitutional: General: He is not in acute distress. Appearance: He is not toxic-appearing. HENT: Head: Normocephalic and atraumatic. Mouth/Throat: Mouth: Mucous membranes are moist. Cardiovascular: Rate and Rhythm: Normal rate and regular rhythm. Heart sounds: Murmur heard. Pulmonary: Effort: Pulmonary effort is normal. Comments: Diminished RLL, chest tube in place draining serosanguinous fluid Abdominal: General: Bowel sounds are normal. Tenderness: There is no abdominal tenderness. Musculoskeletal: General: No swelling, tenderness or deformity. Skin: General: Skin is warm and dry. Coloration: Skin is jaundiced. Neurological: Mental Status: He is alert and oriented to person, place, and time. Lab/Radiology/Diagnostic Review: I reviewed the following laboratory and imaging result(s). Micro: No results found for the last 14 days. Urinalysis: Resulted in the Past 12 Months 10/03/23 1725 COLORU Yellow CLARITYU Clear SPECGRAVU 1.039* PHURINE 6.0 PROTURQL Trace GLUCOSEUR Negative KETONESU Trace BLOODUR Negative NITRITEU Negative LEUKESTUR Negative Hematology/Chemistry: Na: 132 Cl: 104 BUN: 40 /Gluc: 99 K: 5.8 CO2: 20 Cr: 1.00 \M.2 AST: - ALT: - Alk Phos: - Ca: 7.8 TP: - Alb: - TBili: -, DBili: - \ Hgb: 10.7 / WBC: 10.5 Plt: 221 / MCV: 103.4 \ INR: - (Labs above are the most recent result obtained in the last 24 hours. For additional labs/trends, see Epic.) Inflammatory Markers: No results for input(s): SEDRATE , CRP in the last 8736 hours. Screening Results RPR:No results found for: LABRPR GC: No results found for: CTRACHOMATIS , NGONORRHOEAE Hepatitis Serologies: Lab Results Component Value Date HEPAIGM Nonreactive 11/30/2017 HEPBSAG Nonreactive 11/30/2017 HEPBSAB Nonreactive 08/18/2017 HEPBCAB Nonreactive 11/30/2017 HEPCAB Nonreactive 11/30/2017 Virologic Testing: HIV Screen: Lab Results Component Value Date [id number] Nonreactive 01/03/2019 CD4:No results found for: CD4ABS , CD4PCT Common Virologic Results: Lab Results Component Value Date [id number] Not Detected 04/06/2017 PPD Negative 01/17/2020 TOXOIGG Negative 12/21/2019 Diagnostics: EKG: Lab Results Component Value Date VR 119 10/03/2023 AR 119 10/03/2023 PRIMSEC 164 10/03/2023 QRSIMSEC 80 10/03/2023 QTIMSEC 306 10/03/2023 QT 430 10/03/2023 PA 52 10/03/2023 RA -7 10/03/2023 TA 8 10/03/2023 DIAG 10/03/2023 Sinus tachycardia Minimal voltage criteria for LVH, may be normal variant Borderline ECG When compared with ECG of 31-AUG-2023 15:15, Vent. rate has increased BY 45 BPM Confirmed by LANDRY FERNANDEZ M.D ([id number]) on 10/05/2023 9:41:53 PM Echo:Results for orders placed during the hospital encounter of 08/23/23 Transthoracic Echo (TTE) Complete W Doppler/CF Narrative Patient name: Beka Lares Date of test: 08/24/2023 Type of test: TTE w/Doppler Hospital #: 0 Date of : 1995 (M) Online Marketing Manager: Saige Carrasco RDCS Referring Physician: OLENA NULL MD Contrast Agent: Contrast Administered by: Supervised/Interpreted by: Sharita Colorado MD Diagnosis: Location: [facility] Reason for test: peripheral edema MV Structure: Normal, MV Motion: Normal, Mitral Annulus: Normal AV Structure: tricuspid and is Normal, AV Motion: Normal Aotic root: Normal, TM: Normal, PV: Normal Valvular Vegetations: none seen, Mass/Thrombi: none seen RA: Normal Measurements: M-Mode Normal Aotic Root: <3.8 LA: <4.0 RV: <2.8 LV(ED): <5.7 LV(ES): Variable 2D Linear Normal Aotic Root: 2.9 cm <4.0 Ao Indexed: 1.6 cm/M2 <2.0 LA: <4.0 RV: 4.4 cm <4.2 LV(ED): 4.9 cm <5.9 LV(ES): 3.2 cm <4.0 2D Vol. Normal Indexed Indexed Normal RA: 97.0 ml 55.1 ml/M2 11-39 LA: 80.0 ml 45.4 ml/M2 16-34 RV: <12.7 LV(ED): 133.0 ml 62-150 75.5 ml/M2 <75 LV(ES): 51.0 ml 21-61 28.9 ml/M2 <32 3D Vol. Indexed Normal LV(ED): <75 LV(ES): <32 LV EF: 62 % (Normal: >=52%) LV Septum: 1.0 cm (Normal: <1.0 cm) Wall Motion Scoring (1=Normal 2=Hypo 3=Akinetic 4=Dyskin./Aneurysm 0=Not visualized) Parasternal [place]:MAS=1 BAS=1 MIL=1 NGUYỄN=1 Parasternal Short [place]:MAS=1 MIS=1 NH=1 MIL=1 MAL=1 MA=1 Apical 4 Chambers:=1 MIS=1 BIS=1 BAL=1 MAL=1 AL=1 AC=1 Apical 2 Chambers:AI=1 NH=1 BI=1 BA=1 MA=1 AA=1 AC=1 LV Global Longitudinal Strain: -22.5% (Normal <-17%) RV Global Longitudinal Strain: LV Function: Normal LV Ejection Fraction, (EF=52-72%) RV Function: Normal Septal Motion: Normal Pericardial Effusion: none seen Atrial Septum: Normal DOPPLER/COLOR FLOW DOPPLER RESULTS: Diastolic Function: Normal Tricuspid Valve: Trace TR Pulmonic Valve: normal PV AV Regurgitation: No AR seen AV Stenosis: no AV Area: cm2 AV Pressure Gradient (mmHg): Mean: 0, Peak:0 MV Regurgitation: Mild MR MV Stenosis: no MS MV Area: cm2 MV Pressure Gradient (mmHg): Mean: 0 MV ERO: cm Regurg. Vol.: ml/beat Regurg. Frac.: % PA Pressure: mmHg DOPPLER/COLOR FOLOW DOPPLER COMMENTS: No AR seen, Mild MR, no , no MS, Trace TR, normal PV. Diastolic function: Normal SUMMARY: Normal LV and RV systolic function. Normal LV GLS. Increased chamber sizes after indexing to BSA. Normal aortic root size. Normal pericardium without effusion. LV wall thickness is normal. IVC size is normal and decreases >50% with inspiration. No AR seen, Mild MR, no , no MS, Trace TR, normal PV. Diastolic function: Normal. Confirmed on 08/24/2023 - 10:40:28 by Sharita Colorado MD By signing this report, the attending manager supplier certifies that he or she has personally supervised and interpreted the echocardiogram and has reviewed and or edited and agrees with the written comments contained within the report. Imaging: XR Chest 1 View Result Date: 10/07/2023 The current study is compared with the prior radiograph dated 10/06/2023. Right chest tube. Surgical clips project over the upper abdomen. Stable small right pleural effusion and moderate left pleural effusion with associated atelectasis in the lung bases. No pneumothorax. The cardiomediastinal silhouette is obscured but overall appears unchanged. Dictated by: Deshawn Jaramillo MD The radiology attending physician has personally reviewed this study, and had reviewed and/or edited this written report and agrees with it. Electronically signed by: Jena Peters M.D. XR Chest 1 View Result Date: 10/06/2023 The current study is compared with the prior radiograph dated 10/05/2023. Right basilar chest tube Decreased small right pleural effusion. Stable small left pleural effusion. Stable retrocardiac consolidation, likely representing atelectasis. No pneumothorax. Cardiomediastinal silhouette is stable. Clips project over the abdomen. Dictated by: Deshawn Jaramillo MD The radiology attending physician has personally reviewed this study, and had reviewed and/or edited this written report and agrees with it. Electronically signed by: Dl Cabrera M.D. Assessment/Plan #Acute hypoxemic respiratory failure, resolved #Right loculated pleural effusion s/p chest tube #Hx intermittent CMV viremia resistant to GCV and Maribavir #Autoimmune hepatitis s/p OLT 2008 #PTLD, last chemo 2018 (CHOP x1 2017, DA-EPOCH-R x5 09/2017-12/2017 with IT MTX) #ITP s/p splenectomy CT imaging on admission revealed interval development of multi lobulated partially loculated R pleural effusion with associated subtotal collapse of the remainder of R lung. Thoracentesis with drainage of 500cc exudative fluid, cultures with few PMNLs on stain, NGTD. Cytology negative for malignancy. Per records, after drainage breathing initially improved then he got worse and required BiPAP. CXR with no new pneumothorax. Micro: 10/03 RVP: +rhino/entero 10/03 BCx x2: negative 10/03 pleural fluid bacterial Cx: few PMNLs, NGTD 10/03 MRSA nares: negative 10/04 CMV DNA PCR: 121 IU/mL, 2.08 log IU/mL 10/04 Aspergillus galactomannan: 0.670 Cocci Ab screen, Crypto Ag, Histo Ab, Histo Ag, Blasto Ab - negative Abx: Vancomycin: 10/03 - 10/04 Cefepime: 10/03 - p Letermovir: 10/04 - p Valganciclovir: 10/04 - p --> Overall, new loculated effusion on right with pneumonia and hypoxemic respiratory failure inimmunosuppressed patient with known RSV and positive galactomannan is c/f fungal pneumonia. However, on physical exam, patient is much more well-appearing than expected, and has made tremendous improvements with no anti-fungal therapy. Additionally, galactomannan of 0.67 is equivocal (typically serum galactomannan of 1+, or serum galactomannan of 0.7 WITH BAL galactomannan of 0.8 are cutoffs usedfor inclusion criteria as suspected fungal pneumonia. Additionally, his current imaging is not particularly nodular appearing, and doesn't, at least to us, appear typical for fungal pneumonia. Oddly,his prior CT chest in August looked more c/f fungal disease than current CT. We will discuss with radiology and repeat tests as below, and then come up with plan. Recommendations Repeat serum galactomannan Send pleural fluid for fungal culture only (given length of time chest tube has been in, it's generally not a great idea to send any micro work up on it, but we're looking for something specific here; do NOT want bacterial culture) Send fungal blood culture Continue cefepime Continue home CMV meds, CMV levels currently well controlled Further recommendations pending discussion with radiology and results of above as well as patients clinical course ID will continue to follow Today, I am treating the patient for bacterial or fungal pneumonia, parapneumonic effusion which can cause respiratory failure, sepsis, septic shock in the short-term future in the absence of appropriate treatment, as described in the note., Discussed management of pneumonia with MICU., Reviewed notes by ICU, hepatobiliary, prior ID to determine appropriate plan of care as in the note., EstimatedCreatinine Clearance: 96.7 mL/min (by Cockcroft-Gault based on SCr of 1 mg/dL). - reviewed; antibiotics recommended above are dosed accordingly., and The patient is being intensively monitored for antimicrobial toxicity from cefepime with the following tests: CBC, CMP. Cosigned by Harry Gay MD at 10/08/2023 1:33 PM MATHEMATICIAN RESEARCH EMATICIAN RESEARCH EMATICIAN RESEARCH Associated attestation - Harry Gay MD - 10/08/2023 1:33 PM MATHEMATICIAN RESEARCH I saw and examined the patient on 10/07/2023. I agree with the findings and plan of care as documented in the resident/fellow's note dated 10/07/2023 with the following additions/modifications. Patient with AIH, s/p OLT 1998, c/b EBV-positive PTLD in 2017 treated with R- CHOP then DA-EPOCH-R as well as IT MTX, as well as refractory ITP, s/p splenectomy in 2012. 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 He presented with cough and back pain and had been been treated earlier this month with doxycyclineand amox-clavulanate but re-presented with a R loculated and exudative pleural effusion, s/p chest tube insertion 10/04. In the course of workup his serum GM was 0.67 and his RPP was positive for rhino virus/enterovirus. Pleural fluid this far NG on aerobic/anaerobic Cx as well as negative for malignancy on cytology. The serum GM is an equivocal value, especially if his extensive loculated pleural effusion is due to actual invasive fungal disease. I reviewed his CTs 08/23 and 10/03 and there is some nodularity there that could be compatible with invasive fungal infection. However there has been clinical improvement with chest tube insertion and empiric antibacterial therapy with cefepime and azithromycin as well as initial vancomycin. I discussed this with established ID provider Dr. Jil Duncan and we would like to collect additional data before embarking upon antifungal therapy. Repeat serum GM. Send fungal Cx on pleural fluid. Consider bronchoscopy to send BAL for GM and fungal Cx. Would also use interval imaging to assess radiographic lesions. For now, would continue cefepime and await further data. Continue valganciclovir and letermovir. documented in this encounter ED Notes * Juan Manuel Hoang RN - 10/03/2023 7:41 PM CST Bed: CC-06L Expected date: Expected time: Means of arrival: Comments: 2 Juan Manuel Hoang RN 10/03/23 194 EMATICIAN RESEARCH * Eli Alcantara RN - 10/03/2023 2:00 PM CST Bed: ED2- Expected date: Expected time: Means of arrival: Comments: Simone - MRI Eli Alcantara RN 10/03/23 1400 EMATICIAN RESEARCH * Joni Cintron MD - 10/03/2023 8:18 AM CST HPI Chief Complaint Patient presents with ??? Cough ??? Back Pain HPI Mr. Lares is a 28 yo male with history of liver transplant 03/2019 due to autoimmune hepatitis c/b PTLD and intermittent CMV viremia, ITP s/p splenectomy on IVIG, PREME superficial VTE who presents for 1 week of productive cough and back pain. He reports that last Wednesday evening he developed back to his right back (R shoulder blade to lower right back). He attempted Tylenol and heating pads without significant relief. Hot showers provided temporary relief. No preceding trauma. No neuro symptoms. The following day he also developed cough productive of thick white/yellow sputum, and associated with dyspnea on exertion. Cough is significant enough to interfere with sleep. Endorses some chills and one episode of mild pleuritic chest painwhile coughing which has resolved. Denies fever (Tmax 100.2F), abdominal pain, n/v. Immunosuppressed with tacrolimus. He was seen at OSH on Wednesday and diagnosed with right sided pneumonia. He was dis charged on doxy 100 mg daily and amox-clav 875-125 BID, which he has been taking. He reports the back pain has been interfering with activity. Today he reports that the back pain has migrated to the left back. Reports that it is exacerbated by movements. Of note, he was hospitalized 08/23-09/03 for elevated LFTs, E coli bacteremia (discharged on cipro),CMV viremia. Patient History: Patient Active Problem List Diagnosis Date Noted ??? Fever 12/22/2019 ??? Pneumonia of right lung due to infectious organism, unspecified part of lung 10/03/2023 ??? Acute superficial DVT of left upper extremity 08/28/2023 ??? Rhinovirus 08/27/2023 ??? Hypocalcemia and hypomagnesemia 08/27/2023 ??? Gram-negative bacteremia 08/24/2023 ??? Macrocytic anemia 08/23/2023 ??? Ansarca 08/23/2023 ??? Jaundice 08/23/2023 ??? Colitis 08/23/2023 ??? Eustachian tube dysfunction, bilateral 06/02/2023 ??? Subcutaneous nodule of right lower extremity 07/09/2022 ??? Immunocompromised (HCC) 05/13/2022 ??? Chronic pansinusitis 02/17/2022 ??? Muscle weakness ??? Myalgia 10/08/2020 ??? On antiviral therapy 03/11/2020 ??? Elevated LFTs 02/15/2020 ??? 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 Immunocompromised patient (HCC) 01/06/2019 ??? Community acquired pneumonia 01/06/2019 ??? Lymphadenopathy 01/06/2019 ??? 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) 08/25/2017 ??? History of liver transplant (CMS/HCC) (HCC) 06/06/2014 ??? Cytomegalovirus infection (HCC) 04/27/2014 ??? 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 Idiopathic thrombocytopenic purpura (HCC) 02/15/2014 ??? Autoimmune hepatitis (CMS/HCC) (HCC) 05/18/2012 ??? 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 Past Medical History: Diagnosis Date ??? Cancer (CMS/HCC) (HCC) ??? Chronic diarrhea ??? CMV (cytomegalovirus infection) (HCC) ??? Community acquired pneumonia of right middle lobe of lung 01/06/2019 ??? Generalized enlarged lymph nodes Lymphadenopathy, generalized - (Added by TW Conv) ??? History of non-Hodgkin's lymphoma History of non-Hodgkin's lymphoma - (Added by TW Conv) ??? Localized enlarged lymph nodes LAD (lymphadenopathy), mediastinal - (Added by TW Conv) ??? Other complications of unspecified transplanted organ and tissue PTLD (post-transplant lymphoproliferative disorder) - (Added by TW Conv) ??? PNA (pneumonia) ??? Pulmonary emboli (HCC) Past Surgical History: Procedure Laterality Date ??? BIOPSY LIVER N/A 02/02/2020 ??? BIOPSY LYMPH NODE SUPERFICIAL N/A 05/22/2014 ??? EXCHANGE PICC LINE Left 12/24/2021 ??? FUNCTIONAL ENDOSCOPIC SINUS SURGERY 08/28/2022 ? ? IR PICC LINE PLACEMENT > 5 YEARS N/A 12/19/2021 ? ? IR PICC LINE PLACEMENT > 5 YEARS N/A 12/26/2021 ??? LIVER TRANSPLANT 1998 ??? OTHER SURGICAL HISTORY 01/06/2019 Excisional lymph node biopsy of neck ??? SPLENECTOMY ??? US ABDOMEN COMPLETE W LIVER DOPPLER (C) Right 10/18/2018 ??? US GUIDED BIOPSY LIVER N/A 10/18/2018 ??? US GUIDED BIOPSY LIVER N/A 05/14/2020 ??? US GUIDED BIOPSY LIVER N/A 08/31/2022 ??? US GUIDED BIOPSY LYMPH NODE SUPERFICIAL LEFT N/A 10/13/2019 ??? US GUIDED BIOPSY LYMPH NODE SUPERFICIAL LEFT N/A 10/07/2021 Family History Problem Relation Age of Onset ??? Rectal cancer Mother Rectal cancer - (Added by TW Conv) ??? No Known Problems Father ??? Diabetes type II Sister Family history of type 2 diabetes mellitus - (Added by [facility] Conv) ??? Anesthesia problems Other Social History Tobacco Use ??? Smoking status: Never ??? Smokeless tobacco: Current Types: Chew Vaping Use ??? Vaping Use: Never used Substance and Sexual Activity ??? Alcohol use: Yes Comment: occassional ??? Drug use: Yes Types: Alcohol ??? Sexual activity: Defer Rare alcohol use. No history of illicit drug use. Social History Social History Narrative Living Situation: Residential institution 10/05/17 (Added by [facility] Conv) Review of Systems Review of Systems Constitutional: Positive for appetite change and chills. Negative for fever. HENT: Negative for congestion and sore throat. Eyes: Negative. Respiratory: Positive for cough and shortness of breath. Cardiovascular: Positive for chest pain. Gastrointestinal: Negative for abdominal pain, nausea and vomiting. Endocrine: Negative. Genitourinary: Negative. Musculoskeletal: Positive for back pain. Skin: Negative for rash. Allergic/Immunologic: Negative. Neurological: Negative for dizziness and light-headedness. Hematological: Negative. Psychiatric/Behavioral: Negative. Physical Exam ED Triage Vitals [10/03/23 0748] Temp Pulse Resp BP SpO2 36.7 ??C (98.1 ??F) 102 18 114/74 93 % Temp src Heart Rate Source Patient Position BP Location FiO2 (%) Oral -- -- -- -- Height Height Method Weight Weight Method 1.727 m (5' 8 ) Stated 61.2 kg (135 lb) Stated Physical Exam Vitals and nursing note reviewed. Constitutional: General: He is not in acute distress. Appearance: Normal appearance. HENT: Head: Normocephalic and atraumatic. Cardiovascular: Rate and Rhythm: Regular rhythm. Tachycardia present. Pulses: Normal pulses. Heart sounds: Normal heart sounds. Pulmonary: Comments: Diminished breath sounds to bilateral bases Tachypneic Increased work of breathing Abdominal: General: Abdomen is flat. Palpations: Abdomen is soft. Tenderness: There is no abdominal tenderness. There is no guarding or rebound. Musculoskeletal: General: Normal range of motion. Cervical back: Normal range of motion. Comments: Tenderness to palpation at midthoracic spine. Skin: General: Skin is warm and dry. Coloration: Skin is jaundiced. Neurological: General: No focal deficit present. Mental Status: He is alert and oriented to person, place, and time. Psychiatric: Mood and Affect: Mood normal. [facility] Medical Decision Making Mr. 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 In regards to his cough and dyspnea, suspect continued symptoms related to pneumonia. Will check CXR, CBC, CMP, RVP. Further antibiotics pending results. Will treat with mucinex. In regards to back pain, suspect muscular in nature given exacerbation with movements and migrationof pain. No fever, systemic symptoms to indicate more severe diagnosis such as epidural abscess. However, does have recent E. Coli bacteremia and immunosuppression, and lower thoracic point tenderness on exam. No focal neuro deficits. Will obtain total spine MRI. Amount and/or Complexity of Data Reviewed Independent Historian: parent Labs: ordered. Decision-making details documented in ED Course. Radiology: ordered. Decision-making details documented in ED Course. ECG/medicine tests: ordered. Risk OTC drugs. Prescription drug management. Decision regarding hospitalization. Attending Summary of Care I Joni Cintron MD have seen and examined this patient. I have discussed/reviewed the history, physical exam and assessment with the resident. We are in agreement with treatment plan except as I have noted. ED Course as of 10/03/23 5901 Time: 10/03 853 Value: WBC(!): 17.1 Comment: (Reviewed) By: Yulisa Joy MD Time: 10/03 902 Value: XR Chest Pa Lateral 2 Vw Comment: EXAMINATION: 2 view chest radiograph IMPRESSION: Comparison is made to CT dated 08/23/2023. There is moderate right sized pleural effusion. Associated right airspace opacity may represent a combination of pneumonia and atelectasis in the appropriate clinical setting. The left lung is clear. No pneumothorax. Cardiomediastinal silhouette is partially obscured Electronically signed by: Roxy Mai M.D. By: Yulisa Joy MD Time: 10/03 907 Value: Comprehensive metabolic panel(!): Sodium 135 Potassium, pl 4.9 Chloride 105 CO2 21(!) Anion gap 9 BUN 35(!) Creatinine 1.17 Glucose 117 Calcium 8.5 Bilirubin, total 5.4(!) Protein, pl 5.1(!) Albumin 2.8(!) Alk phos 181(!) ALT 30 AST 40 Comment: (Reviewed) By: Yulisa Joy MD Time: 10/03 936 Comment: CXR consistent with parapneumonic effusion. Leukocytosis to 17. Will start vanc and cefepime, and obtain lateral decubitus x-rays to further evaluate effusion. Considering paracentesis. Planfor admission. By: Yulisa Joy MD Time: 10/03 0957 Value: Rhinovirus/Enterovirus RNA(!): Detected Comment: (Reviewed) By: Yulisa Joy MD Time: 10/03 1010 Value: Direct Specimen Exam(!): Stain: Abundant squamous epithelial cells seen indicating excessive oropharyngeal contamination. Culture will not be processed further. Please submit another specimen. Smear results called to and read back by: Yulisa Joy MD [phone] on 10/03/2023 10:10:17 by: Bahman Torres MT Comment: (Reviewed) By: Yulisa Joy MD Time: 10/03 1044 Value: Tacrolimus level random: Tacrolimus random 8.9 Comment: (Reviewed) By: Yulisa Joy MD Time: 10/03 1231 Comment: Thoracentesis performed and studies sent. About 500 cc fluid removed. Fluid removal limited by back cramping, but he reported breathing felt improved after procedure. X-ray obtained with no evidence of PTX. Now in MRI spine. By: Yulisa Joy MD Time: 10/03 1458 Comment: After MRI, noted to be tachycardic to 120s for prolonged period and satting 90% on 2L O2. By: Yulisa Joy MD Time: 10/03 1506 Comment: Spine MRI: IMPRESSION: 1. No evidence of discitis-osteomyelitis or spinal epidural abscess. 2. Incompletely imaged moderately sized loculated right pleural effusion. By: Yulisa Joy MD Time: 10/03 1700 Comment: Pt when sitting on side of bed to urinate developed some SOB sats in 80s and increased tachycardia up to 140, pt will need ICU level monitoring and care, will switch bed to ICU, pt currentlyon 5 lpm NC O2 to maintain sats >90%. By: Hans Najera Jr., MD Time: 10/03 5173 Comment: Continuing to have increased work of breathing. Tachycardic to 120s consistently and desatting to 80s with standing on 4-5L O2. Pending ICU bed. Will place on BiPAP for increased work of breathing. By: Yulisa Joy MD Time: 10/03 1825 Comment: Pt feels like he is tiring a bit and willing to try bipap. Pt reports he would only want to be intubated when absolutely needed. Patient would not want to live or stay on the ventilator long-term if he could not be taken off the ventilator. Mother was present for discussion and potential end of life wishes, pt remains full code at this time and wants everything done as long as he can recover with some quality of life, By: Hans Najera Jr., MD Time: 10/03 1929 Comment: Pt being moved By: Hans Najera Jr., MD Time: 10/03 1931 Comment: TRANSITION OF CARE: I have reviewed all pertinent vital signs, allergies, and history available in the chart. I, Ileana Clifton MD, am taking signout from Dr. Joy (Resident). Summary: 28 y.o. male h/o liver txp on tacro, had right NA with OP abx. Tachypneic here, tachycardic. CXR shows pleural effusion right, which was tapped in ED (effusion not empyema). Now on 4-5L (no baseline O2 req) desats to low 80s, now on bipap, here CTA: no PE no extrav MRI whole spine performed, no evidence of abscess. Signed out to ICU, pending bed. Getting vanc, cefe Pending: N/A Dispo: admission to MICU, signed out By: Ileana Tucker MD Time: 10/03 1938 Value: Rhinovirus/Enterovirus RNA(!): Detected Comment: (Reviewed) By: Ileana Tucker MD Time: 10/03 1942 Comment: Nursing requests pt be moved to [facility] while awaiting ICU bed, pt on bipap feeling slightly better, Pt on broad spectrum abx for pneumonia, tachycardia and increased work of breathing since thoracentesis CT shows pleural effusion remains no PTX no bleeding, Care signed over to Dr. Nash By: Hans Najera Jr., MD Time: 10/03 1950 Comment: Pt with reassuring VBGs, and pulling good tidal volumes, but reports persistent work of breathing, plan for symptomatic management of back pain with flexeril and lidocaine patch. By: Ileana Tucker MD Time: 10/03 2023 Comment: Per chart review, pt receives IVIG monthly for hypogammaglobulinemia, will reach out to liver transplant team to see if this is necessary at this time. By: Ileana Tucker MD Time: 10/03 2105 Comment: Pt signed out by Dr. Najera. 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 S/p thoracentesis, with increased work of breathing. Now on bipap. Brought to [facility] for monitoring prior to ICU admission. By: Jez Nash MD Pneumonia of right lung due to infectious organism, unspecified part of lung Parapneumonic effusion Sepsis without acute organ dysfunction, due to unspecified organism (HCC) Joni Cintron MD 10/03/23 1443 Joni Cintron MD 10/03/23 1719 Yulisa Joy MD Resident 10/03/23 181 Yulisa Joy MD Resident 10/03/23 195 Joni Cintron MD 10/04/23 0450 EMATICIAN RESEARCH EMATICIAN RESEARCH EMATICIAN RESEARCH EMATICIAN RESEARCH EMATICIAN RESEARCH * Sherry Liu RN - 10/03/2023 7:58 AM CST Bed: ED2-28 Expected date: Expected time: Means of arrival: Car Comments: Sherry Liu, SHAILESH 10/03/23 0758 EMATICIAN RESEARCH * Yenny Brown RN - 10/03/2023 7:49 AM CST Pt to ED from home with c/o productive cough and right flank pain. Pt was seen at [facility] Wednesday and diagnosed with pneumonia to the right lung, now feels as though it may be going intothe left lung. Pt was started on abx but not feeling any better. PmHx: Non-Hodgkin's Lymphoma, PE, CMV On arrival pt is A&Ox4, denies any CP/N/V/D. EMATICIAN RESEARCH documented in this encounter Miscellaneous Notes * Plan of Care - Philip Curran RN - 10/13/2023 2:06 PM CST Problem: Health Behavior: Goal: Understanding of discharge needs will improve 10/13/2023 1406 by Philip Curran RN Outcome: Completed 10/13/2023 0849 by Philip Curran RN Outcome: Progressing Problem: Activity: Goal: Fatigue will decrease 10/13/2023 1406 by Philip Curran RN Outcome: Completed 10/13/2023 0849 by Philip Curran RN Outcome: Progressing Problem: Cardiac: Goal: Hemodynamic stability will improve 10/13/2023 1406 by Philip Curran RN Outcome: Completed 10/13/2023 0849 by Philip Curran RN Outcome: Progressing Problem: Lack of Knowledge: Goal: Knowledge of disease or condition will improve 10/13/2023 1406 by Philip Curran RN Outcome: Completed 10/13/2023 0849 by Philip Curran RN Outcome: Progressing Goal: Knowledge of the prescribed therapeutic regimen will improve 10/13/2023 1406 by Philip Curran RN Outcome: Completed 10/13/2023 0849 by Philip Curran RN Outcome: Progressing Problem: Coping: Goal: Level of anxiety will decrease 10/13/2023 1406 by Philip Curran RN Outcome: Completed 10/13/2023 0849 by Philip Curran RN Outcome: Progressing Goal: Ability to cope will improve 10/13/2023 1406 by Philip Curran RN Outcome: Completed 10/13/2023 0849 by Philip Curran RN Outcome: Progressing Goal: Ability to establish a method of communication will improve 10/13/2023 140 by Philip Curran RN Outcome: Completed 10/13/2023 0849 by Philip Curran RN Outcome: Progressing Problem: Nutritional: Goal: Consumption of the prescribed amount of daily calories will improve 10/13/2023 140 by Philip Curran RN Outcome: Completed 10/13/2023 0849 by Philip Curran RN Outcome: Progressing Problem: Respiratory: Goal: Ability to maintain a clear airway will improve 10/13/2023 140 by Philip Curran RN Outcome: Completed 10/13/2023848 by Philip Curran RN Outcome: Progressing Goal: Ability to maintain adequate ventilation will improve 10/13/20231405 by Philip Curran RN Outcome: Completed 10/13/2023848 by Philip Curran RN Outcome: Progressing Goal: Complications related to the disease process, condition or treatment will be avoided or minimized 10/13/20231405 by Philip Curran RN Outcome: Completed 10/13/2023 08 by Philip Curran RN Outcome: Progressing Problem: Skin Integrity: Goal: Risk for impaired skin integrity will decrease 10/13/20231405 by Philip Curran RN Outcome: Completed 10/13/2023 08 by Philip Curran RN Outcome: Progressing Problem: Lack of Knowledge: Goal: Ability to develop a pain control plan will improve 10/13/2023 140 by Philip Curran RN Outcome: Completed 10/13/2023 08 by Philip Curran RN Outcome: Progressing Goal: Ability to identify pain intensity on a pain scale and rate it consistently will improve 10/13/2023 140 by Philip Curran RN Outcome: Completed 10/13/2023 08 by Philip Curran RN Outcome: Progressing Goal: Ability to notify healthcare provider of pain before it becomes unmanageable or unbearable will improve 10/13/2023 140 by Philip Curran RN Outcome: Completed 10/13/2023 08 by Philip Curran RN Outcome: Progressing Problem: Medication: Goal: Satisfaction with pain management regimen will improve 10/13/2023 1406 by Philip Curran RN Outcome: Completed 10/13/2023 0849 by Philip Curran RN Outcome: Progressing Problem: Sensory: Goal: Ability to identify factors that increase the pain will improve 10/13/2023 1406 by Philip Curran RN Outcome: Completed 10/13/2023 0849 by Philip Curran RN Outcome: Progressing Goal: Pain level will decrease 10/13/2023 1406 by Philip Curran RN Outcome: Completed 10/13/2023 0849 by Philip Curran RN Outcome: Progressing Problem: Activity: Goal: Ability to return to normal activity level will improve 10/13/2023 1406 by Philip Curran RN Outcome: Completed 10/13/2023 0849 by Philip Curran RN Outcome: Progressing Problem: Lack of Knowledge: Goal: Knowledge of the prescribed therapeutic regimen will improve 10/13/2023 1406 by Philip Curran RN Outcome: Completed 10/13/2023 0849 by Philip Curran RN Outcome: Progressing Problem: Coping: Goal: Ability to cope will improve 10/13/2023 1406 by Philip Curran RN Outcome: Completed 10/13/2023 0849 by Philip Curran RN Outcome: Progressing Problem: Health Behavior: Goal: Identification of resources available to assist in meeting health care needs will improve 10/13/2023 1406 by Philip Curran RN Outcome: Completed 10/13/2023 0849 by Philip Curran RN Outcome: Progressing Problem: Sensory: Goal: Pain level will decrease 10/13/2023 1406 by Philip Curran RN Outcome: Completed 10/13/2023 0849 by Philip Curran RN Outcome: Progressing Problem: Activity: Goal: Mobility will improve 10/13/2023 1406 by Philip Curran RN Outcome: Completed 10/13/2023 0849 by Philip Curran RN Outcome: Progressing Problem: Lack of Knowledge: Goal: Understanding of ways to prevent future skin breakdown will improve 10/13/2023 1406 by Magdy, Erning, RN Outcome: Completed 10/13/2023 0849 by Philip Curran RN Outcome: Progressing Goal: Ability to identify appropriate dietary choices will improve 10/13/2023 140 by Philip Curran RN Outcome: Completed 10/13/2023 0849 by Philip Curran RN Outcome: Progressing Problem: Nutritional: Goal: Dietary intake will improve 10/13/2023 1406 by Philip Curran RN Outcome: Completed 10/13/2023 0849 by Philip Curran RN Outcome: Progressing Goal: Ability to maintain a balanced intake and output will improve 10/13/2023 140 by Philip Curran RN Outcome: Completed 10/13/2023 0849 by Philip Curran RN Outcome: Progressing Problem: Skin Integrity: Goal: Risk for impaired skin integrity will decrease 10/13/2023 140 by Philip Curran RN Outcome: Completed 10/13/2023 0849 by Philip Curran RN Outcome: Progressing Goal: Ability to demonstrate warm and dry skin will improve 10/13/2023 140 by Philip Curran RN Outcome: Completed 10/13/2023 0849 by Philip Curran RN Outcome: Progressing Goal: Circulation will improve to fullest extent possible 10/13/2023 140 by Philip Curran RN Outcome: Completed 10/13/2023 0849 by Philip Curran RN Outcome: Progressing Problem: Lack of Knowledge: Goal: Ability to state ways to decrease the risk of falls will improve 10/13/2023 140 by Philip Curran RN Outcome: Completed 10/13/2023 0849 by Philip Curran RN Outcome: Progressing Problem: Safety: Goal: Will remain free from falls 10/13/2023 140 by Philip Curran RN Outcome: Completed 10/13/2023 0849 by Philip Curran RN Outcome: Progressing Goal: Will remain free from injury from falls 10/13/2023 140 by Philip Curran RN Outcome: Completed 10/13/2023 0849 by Philip Curran RN Outcome: Progressing Goal: Will remain free from falls and injury in home environment 10/13/2023 140 by Philip Curran RN Outcome: Completed 10/13/2023 0849 by Philip Curran RN Outcome: Progressing Goals: Clinical Goals for the Shift: tolerate PO abx Summary: EMATICIAN RESEARCH * Consults, Subsequent - Xavi Joseph MD - 10/13/2023 11:50 AM MATHEMATICIAN RESEARCH Infectious Disease Inpatient Consult Note Infectious Disease Team: Transplant Contact Information: Please see AMION listing for up-to-date contact information for this ID team Requesting Physician: Amaris James MD Reason for Consult: Diagnostic and treatment recommendations as well as assistance with follow-up care for positive galactomannan Subjective Interval History: Patient feeling better having breakfast. Denies cough or shortness of breath. [place] Antimicrobial Therapy: Anti-infectives (From admission, onward) Start Dose/Rate Route Frequency Ordered Stop 10/13/23 0900 amoxicillin-clavulanate (AUGMENTIN) 875-125 mg per tablet 875 mg of amoxicillin 875 mg of amoxicillin oral 2 times daily 10/13/23 0829 10/13/23 0000 amoxicillin-clavulanate (AUGMENTIN) 875-125 mg per tablet 1 tablet oral 2 times daily 10/13/23 1059 10/17/23 2359 10/04/23 0900 letermovir (PREVYMIS) tablet 480 mg 480 mg oral Daily 10/03/23 2357 03/27/24 0859 10/04/23 0030 valGANciclovir (VALCYTE) tablet 900 mg 900 mg oral 2 times daily 10/03/23 2357 03/19/24 2059 Current Facility-Administered Medications Ordered in [facility] Medication Dose Route Frequency Provider Last Rate Last Admin amoxicillin-clavulanate (AUGMENTIN) 875-125 mg per tablet 875 mg of amoxicillin 875 mg of amoxicillin oral BID Karena Hicks MD 875 mg of amoxicillin at 10/13/23 0834 benzocaine-menthoL (CHLORASEPTIC) lozenge 1 lozenge 1 lozenge mouth/throat Q2H PRN Chelsi Weinberg MD 1 lozenge at 10/10/23 2217 benzonatate (TESSALON) capsule 100 mg 100 mg oral TID PRN Chelsi Weinberg MD 100 mg at 10/13/23 0824 Carrier Fluids for Secondary Infusion - 0.9% Sodium Chloride 30 mL intravenous PRN Jessica Sapp MD enoxaparin (LOVENOX) syringe 40 mg 40 mg subcutaneous Daily-2099 Lisandra Harper MD 40 mgat 10/09/232023 [Held by Provider] furosemide (LASIX) tablet 20 mg 20 mg oral Daily Wendy Bonds MD PhD 20 mg at 10/11/23 0822 ipratropium-albuteroL (DUO-NEB) 0.5-2.5 mg/3 mL nebulizer solution 3 mL 3 mL nebulization Q4H PRN (RT) Wendy Bonds MD PhD letermovir (PREVYMIS) tablet 480 mg 480 mg oral Daily Jessica Sapp MD 480 mg at 10/13/23 0832 lidocaine (ASPERCREME) 4 % patch 1 patch 1 patch transdermal Q24H Ileana Tucker MD 1 patch at 10/05/23 2158 methyl salicylate-menthol 15-1 % cream topical QID PRN Wendy Bonds MD PhD Given at 10/04/23 1223 ondansetron (ZOFRAN) injection 4 mg 4 mg intravenous Q6H PRN Jessica Sapp MD sodium chloride 0.9% flush 0.5-20 mL 0.5-20 mL intra-catheter Q8H PIPPA Jessica Sapp MD 10 mL at 10/11/23 2038 sodium chloride 0.9% flush 0.5-20 mL 0.5-20 mL intra-catheter PRN Jessica Sapp MD 10 mL at 10/10/23 0054 spironolactone (ALDACTONE) tablet 50 mg 50 mg oral Daily Jp Bryant Jr., MD 50 mg at 10/13/23 0824 [START ON 10/15/2023] tacrolimus immediate-release capsule 0.5 mg 0.5 mg oral Q72H Karena Hikcs MD ursodioL (ACTIGALL) capsule 600 mg 600 mg oral Daily with dinner Jessica Sapp MD 600 mg at 10/12/23 1830 valGANciclovir (VALCYTE) tablet 900 mg 900 mg oral BID PadiJessica MD 900 mg at 10/13/23 0824 Current Outpatient Medications Ordered in [facility] Medication Sig Dispense Refill amoxicillin-clavulanate (AUGMENTIN) 875-125 mg per tablet Take 1 tablet by mouth 2 (two) times a day for 4 days 8 tablet 0 tacrolimus 0.5 mg immediate-release capsule Take 1 capsule (0.5 mg total) by mouth every third day Objective Vitals: 24-hr Min/Max: Temp Min: 36.5 ??C (97.7 ??F) Max: 36.8 ??C (98.2 ??F) Pulse Min: 82 Max: 95 BP Min: 106/64 Max: 118/63 Resp Min: 20 Max: 20 SpO2 Min: 97 % Max: 99 % Most Recent: Vitals: 10/13/23824 BP: 109/69 Pulse: 82 Resp: 20 Temp: 36.5 ??C (97.7 ??F) SpO2: 98% Intake/Output: I/O last 2 completed shifts: In: 560 [P.O.:540; IV Piggyback:20] Out: - Physical Exam: General/Constitutional. Well-appearing and not in acute distress. Head. Anicteric sclerae. No conjunctival hyperemia/inflammation. No nasal or aural discharge. Neck. No obvious masses. Chest/Respiratory. Non-labored breathing on room air. Musculoskeletal/Extremities. No limb edema/deformities. Integument/Skin. No rash appreciated. No jaundice. Neurologic/Psychiatric. Calm. Appropriate mood and affect. Active Lines/Ports/Devices: Peripheral IV 10/03/23 20 G Anterior;Distal;Left;Upper Arm (Active) Number of days: 7 Chest Tube Right (Active) Number of days: 6 Labs: I reviewed the result(s) of the following test(s). CBC: Recent Labs Lab Units 10/13/23 0059 WBC K/cumm 7.5 HEMOGLOBIN g/dL 10.6* HEMATOCRIT % 28.8* PLATELETS K/cumm 214 CMP: Recent Labs Lab Units 10/13/23 0059 SODIUM mmol/L 139 POTASSIUM PLASMA mmol/L 4.8 CHLORIDE mmol/L 112* CO2 mmol/L 21* ANIONGAP mmol/L 6 GLUCOSE mg/dL 98 BUN SERUM mg/dL 26* CREATININE mg/dL 0.78* CALCIUM mg/dL 7.9* ESR: CRP: UA: Current CrCl: Estimated Creatinine Clearance: 121 mL/min (A) (by Cockcroft-Gault based on SCr of 0.78 mg/dL (L)). Cr. Trend: Recent Labs Lab Units 10/13/23 0059 10/12/23 0125 10/11/23 0259 CREATININE mg/dL 0.78* 0.88 0.84 Microbiology: I reviewed the result(s) of the following test(s). Fungal Cx pleural fluid 10/08 NGTD Fungal BCx 10/07 NGTD Serum GM 10/07 pending Urine histo Ag 10/04 negative Serum GM 10/04 0.670 Radiology: I independently reviewed 10/10 CXR with small residual R pleural effusion. Assessment/Plan Assessment & Medical Decision-Making: This is a 28 y.o. male with an OLT. ID- relevant issues listed below. 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 Recommendations: - Continue as planned Abx therapy with amox-clavulanate 875 mg-125 mg BID through 10/17 then stop. - Continue letermovir and valganciclovir for secondary prophylaxis/maintenance. - Will need ID outpatient follow-up. Defer to outpatient ID provider regarding need for and timing of repeat CT. ID will sign off for now. Please call us back if with questions/concerns/clinical changes/additional microbiologic data. MDM Supplementary Attestation On this date of service I managed this patient with pneumonia and empyema. They have 1 acute or chronic illness or injury that poses a threat to life or bodily function. I independently interpreted tests such as CBC, basic/comprehensive metabolic panel, cultures which showed findings discussed elsewhere in this note. Management of empyema discussed with Hospital Medicine. Cosigned by Harry Gay MD at 10/13/2023 2:15 PM MATHEMATICIAN RESEARCH EMATICIAN RESEARCH EMATICIAN RESEARCH Associated attestation - Harry Gay MD - 10/13/2023 2:15 PM MATHEMATICIAN RESEARCH I saw and examined the patient on 10/13/23. I agree with the findings and plan of care as documented in the resident/fellow's note dated 10/13/23. * Plan of Care - Philip Curran RN - 10/13/2023 8:49 AM CST Problem: Health Behavior: Goal: Understanding of discharge needs will improve Outcome: Progressing Problem: Activity: Goal: Fatigue will decrease Outcome: Progressing Problem: Cardiac: Goal: Hemodynamic stability will improve Outcome: Progressing Problem: Lack of Knowledge: Goal: Knowledge of disease or condition will improve Outcome: Progressing Goal: Knowledge of the prescribed therapeutic regimen will improve Outcome: Progressing Problem: Coping: Goal: Level of anxiety will decrease Outcome: Progressing Goal: Ability to cope will improve Outcome: Progressing Goal: Ability to establish a method of communication will improve Outcome: Progressing Problem: Nutritional: Goal: Consumption of the prescribed amount of daily calories will improve Outcome: Progressing Problem: Respiratory: Goal: Ability to maintain a clear airway will improve Outcome: Progressing Goal: Ability to maintain adequate ventilation will improve Outcome: Progressing Goal: Complications related to the disease process, condition or treatment will be avoided or minimized Outcome: Progressing Problem: Skin Integrity: Goal: Risk for impaired skin integrity will decrease Outcome: Progressing Problem: Lack of Knowledge: Goal: Ability to develop a pain control plan will improve Outcome: Progressing Goal: Ability to identify pain intensity on a pain scale and rate it consistently will improve Outcome: Progressing Goal: Ability to notify healthcare provider of pain before it becomes unmanageable or unbearable will improve Outcome: Progressing Problem: Medication: Goal: Satisfaction with pain management regimen will improve Outcome: Progressing Problem: Sensory: Goal: Ability to identify factors that increase the pain will improve Outcome: Progressing Goal: Pain level will decrease Outcome: Progressing Problem: Activity: Goal: Ability to return to normal activity level will improve Outcome: Progressing Problem: Lack of Knowledge: Goal: Knowledge of the prescribed therapeutic regimen will improve Outcome: Progressing Problem: Coping: Goal: Ability to cope will improve Outcome: Progressing Problem: Health Behavior: Goal: Identification of resources available to assist in meeting health care needs will improve Outcome: Progressing Problem: Sensory: Goal: Pain level will decrease Outcome: Progressing Problem: Activity: Goal: Mobility will improve Outcome: Progressing Problem: Lack of Knowledge: Goal: Understanding of ways to prevent future skin breakdown will improve Outcome: Progressing Goal: Ability to identify appropriate dietary choices will improve Outcome: Progressing Problem: Nutritional: Goal: Dietary intake will improve Outcome: Progressing Goal: Ability to maintain a balanced intake and output will improve Outcome: Progressing Problem: Skin Integrity: Goal: Risk for impaired skin integrity will decrease Outcome: Progressing Goal: Ability to demonstrate warm and dry skin will improve Outcome: Progressing Goal: Circulation will improve to fullest extent possible Outcome: Progressing Problem: Lack of Knowledge: Goal: Ability to state ways to decrease the risk of falls will improve Outcome: Progressing Problem: Safety: Goal: Will remain free from falls Outcome: Progressing Goal: Will remain free from injury from falls Outcome: Progressing Goal: Will remain free from falls and injury in home environment Outcome: Progressing Goals: Clinical Goals for the Shift: tolerate PO abx Summary: no pain, tolerate PO abx, coughs EMATICIAN RESEARCH * Significant Event - La Baxter NP - 10/13/2023 8:33 AM CST Infectious Disease Transplant Sign-off Note 28 yo male with autoimmune hepatitis s/p OLT '09 c/b PTLD dx'd 2017, last chemo in 2018 on chronic Letermovir & Valcyte for CMV. Currently admitted for resp failure requiring BIPAP. R chest tube was placed 10/04 for loculated, exudative infusion. Admission galactomannan was noted to be 0.67. Repeat galactomannan is negative. Mold blood cx and pleural fluid fungal cx remain negative to date. Pt currently is on room air and CXR showed bibasilar atelectasis with no pneumonia. Would continue to monitor off fungal/mold therapy as resp status has improved with management of pleural effusion and course of Cefepime. Continue Valcyte and Letermovir and f/u in ID clinic - which is being arranged by ID clinic. ID will sign off. La Baxter DNP, RN, [facility] [phone] EMATICIAN RESEARCH * Plan of Care - Lynne Sifuentes RN - 10/13/2023 6:48 AM CST Summary: Vital signs monitored, pt denies pain, no lab replacements. Comfort and safety measures observed. Plan of care ongoing. EMATICIAN RESEARCH * Plan of Care - Faizan Agarwal RN - 10/12/2023 6:50 PM CST Problem: Health Behavior: Goal: Understanding of discharge needs will improve Outcome: Progressing Problem: Activity: Goal: Fatigue will decrease Outcome: Progressing Problem: Cardiac: Goal: Hemodynamic stability will improve Outcome: Progressing Problem: Lack of Knowledge: Goal: Knowledge of disease or condition will improve Outcome: Progressing Goal: Knowledge of the prescribed therapeutic regimen will improve Outcome: Progressing Problem: Coping: Goal: Level of anxiety will decrease Outcome: Progressing Goal: Ability to cope will improve Outcome: Progressing Goal: Ability to establish a method of communication will improve Outcome: Progressing Problem: Nutritional: Goal: Consumption of the prescribed amount of daily calories will improve Outcome: Progressing Problem: Respiratory: Goal: Ability to maintain a clear airway will improve Outcome: Progressing Goal: Ability to maintain adequate ventilation will improve Outcome: Progressing Goal: Complications related to the disease process, condition or treatment will be avoided or minimized Outcome: Progressing Problem: Skin Integrity: Goal: Risk for impaired skin integrity will decrease Outcome: Progressing Problem: Lack of Knowledge: Goal: Ability to develop a pain control plan will improve Outcome: Progressing Goal: Ability to identify pain intensity on a pain scale and rate it consistently will improve Outcome: Progressing Goal: Ability to notify healthcare provider of pain before it becomes unmanageable or unbearable will improve Outcome: Progressing Problem: Medication: Goal: Satisfaction with pain management regimen will improve Outcome: Progressing Problem: Sensory: Goal: Ability to identify factors that increase the pain will improve Outcome: Progressing Goal: Pain level will decrease Outcome: Progressing Problem: Activity: Goal: Ability to return to normal activity level will improve Outcome: Progressing Problem: Lack of Knowledge: Goal: Knowledge of the prescribed therapeutic regimen will improve Outcome: Progressing Problem: Coping: Goal: Ability to cope will improve Outcome: Progressing Problem: Health Behavior: Goal: Identification of resources available to assist in meeting health care needs will improve Outcome: Progressing Problem: Sensory: Goal: Pain level will decrease Outcome: Progressing Problem: Activity: Goal: Mobility will improve Outcome: Progressing Problem: Lack of Knowledge: Goal: Understanding of ways to prevent future skin breakdown will improve Outcome: Progressing Goal: Ability to identify appropriate dietary choices will improve Outcome: Progressing Problem: Nutritional: Goal: Dietary intake will improve Outcome: Progressing Goal: Ability to maintain a balanced intake and output will improve Outcome: Progressing Problem: Skin Integrity: Goal: Risk for impaired skin integrity will decrease Outcome: Progressing Goal: Ability to demonstrate warm and dry skin will improve Outcome: Progressing Goal: Circulation will improve to fullest extent possible Outcome: Progressing Problem: Lack of Knowledge: Goal: Ability to state ways to decrease the risk of falls will improve Outcome: Progressing Problem: Safety: Goal: Will remain free from falls Outcome: Progressing Goal: Will remain free from injury from falls Outcome: Progressing Goal: Will remain free from falls and injury in home environment Outcome: Progressing Goals: Clinical Goals for the Shift: VSS, pain control, rest, maintain o2 sat >90% Summary: VSS, patient denies pain throughout shift. O2 sat >90%. Incentive spirometer being used, 1500 mL achieved, Aerobika being used also independently. Patient up ad deonte. Skin intact. Bed in low position, call light in reach. Visitors at bedside this evening. EMATICIAN RESEARCH * Assessment & Plan Note - Karena Hicks MD - 10/12/2023 6:23 PM MATHEMATICIAN RESEARCH Associated Problem(s): Parapneumonic effusion - Pt developed respiratory failure in setting [...] after last CT to reassess lung opacities. EMATICIAN RESEARCH EMATICIAN RESEARCH EMATICIAN RESEARCH EMATICIAN RESEARCH * Plan of Care - Yulisa Catalan RN - 10/12/2023 4:44 AM CST Goals: Clinical Goals for the Shift: vss, pain control, rest Summary: vss. Abx given. Labs drawn. No complaints from pt, and is resting in bed at the time of this note. Problem: Health Behavior: Goal: Understanding of discharge needs will improve Outcome: Progressing Problem: Activity: Goal: Fatigue will decrease Outcome: Progressing Problem: Cardiac: Goal: Hemodynamic stability will improve Outcome: Progressing Problem: Lack of Knowledge: Goal: Knowledge of disease or condition will improve Outcome: Progressing Goal: Knowledge of the prescribed therapeutic regimen will improve Outcome: Progressing Problem: Coping: Goal: Level of anxiety will decrease Outcome: Progressing Goal: Ability to cope will improve Outcome: Progressing Goal: Ability to establish a method of communication will improve Outcome: Progressing Problem: Nutritional: Goal: Consumption of the prescribed amount of daily calories will improve Outcome: Progressing Problem: Respiratory: Goal: Ability to maintain a clear airway will improve Outcome: Progressing Goal: Ability to maintain adequate ventilation will improve Outcome: Progressing Goal: Complications related to the disease process, condition or treatment will be avoided or minimized Outcome: Progressing Problem: Skin Integrity: Goal: Risk for impaired skin integrity will decrease Outcome: Progressing Problem: Lack of Knowledge: Goal: Ability to develop a pain control plan will improve Outcome: Progressing Goal: Ability to identify pain intensity on a pain scale and rate it consistently will improve Outcome: Progressing Goal: Ability to notify healthcare provider of pain before it becomes unmanageable or unbearable will improve Outcome: Progressing Problem: Medication: Goal: Satisfaction with pain management regimen will improve Outcome: Progressing Problem: Sensory: Goal: Ability to identify factors that increase the pain will improve Outcome: Progressing Goal: Pain level will decrease Outcome: Progressing Problem: Activity: Goal: Ability to return to normal activity level will improve Outcome: Progressing Problem: Lack of Knowledge: Goal: Knowledge of the prescribed therapeutic regimen will improve Outcome: Progressing Problem: Coping: Goal: Ability to cope will improve Outcome: Progressing Problem: Health Behavior: Goal: Identification of resources available to assist in meeting health care needs will improve Outcome: Progressing Problem: Sensory: Goal: Pain level will decrease Outcome: Progressing Problem: Activity: Goal: Mobility will improve Outcome: Progressing Problem: Lack of Knowledge: Goal: Understanding of ways to prevent future skin breakdown will improve Outcome: Progressing Goal: Ability to identify appropriate dietary choices will improve Outcome: Progressing Problem: Nutritional: Goal: Dietary intake will improve Outcome: Progressing Goal: Ability to maintain a balanced intake and output will improve Outcome: Progressing Problem: Skin Integrity: Goal: Risk for impaired skin integrity will decrease Outcome: Progressing Goal: Ability to demonstrate warm and dry skin will improve Outcome: Progressing Goal: Circulation will improve to fullest extent possible Outcome: Progressing Problem: Lack of Knowledge: Goal: Ability to state ways to decrease the risk of falls will improve Outcome: Progressing Problem: Safety: Goal: Will remain free from falls Outcome: Progressing Goal: Will remain free from injury from falls Outcome: Progressing Goal: Will remain free from falls and injury in home environment Outcome: Progressing EMATICIAN RESEARCH * Assessment & Plan Note - Obinna Donahue MD - 10/11/2023 5:06 PM MATHEMATICIAN RESEARCH Associated Problem(s): Parapneumonic effusion Mr. Lares is a 28 yo M w/ PMH of autoimmune hepatitis s/p OLT in 1998 now complicated by PTLD diagnosed in 2017 s/p R-CHOP then DA-EPOCH-R and IT MTX, hx of refractory ITP s/p splenectomy, and recenthospitalization for E. coli bacteremia who presents with cough and concern for PNA complicated by Rt parapneumonic effusion. Patient's effusion is likely most consistent with a parapneumonic effusion. Fluid was exudative (protein 3.3, LDH 306) but with normal glucose and negative cultures. Patient is improving on antibiotics. - Pulled chest tube at bedside today - Agree with ID concerning antimicrobials and duration EMATICIAN RESEARCH * Assessment & Plan Note - Karena Hicks MD - 10/11/2023 1:07 PM MATHEMATICIAN RESEARCH Associated Problem(s): Edema of left lower extremity Nontender and he has been preferentially leaning onto the left side (due to R chest tube), but he has been largely immobile for quite some time and has an active infection which increases his risk for VTE. - Venous doppler showed no evidence of acute DVT - Spot dose IV Lasix (normally takes 20 mg PO) and assess response EMATICIAN RESEARCH EMATICIAN RESEARCH EMATICIAN RESEARCH * Plan of Care - Judy Peralta RN - 10/11/2023 7:34 AM CST Goals: Clinical Goals for the Shift: vss, pain control, monitor dyspnea Summary: Problem: Health Behavior: Goal: Understanding of discharge needs will improve Outcome: Progressing Problem: Activity: Goal: Fatigue will decrease Outcome: Progressing Problem: Cardiac: Goal: Hemodynamic stability will improve Outcome: Progressing Problem: Lack of Knowledge: Goal: Knowledge of disease or condition will improve Outcome: Progressing Goal: Knowledge of the prescribed therapeutic regimen will improve Outcome: Progressing Problem: Coping: Goal: Level of anxiety will decrease Outcome: Progressing Goal: Ability to cope will improve Outcome: Progressing Goal: Ability to establish a method of communication will improve Outcome: Progressing Problem: Nutritional: Goal: Consumption of the prescribed amount of daily calories will improve Outcome: Progressing Problem: Respiratory: Goal: Ability to maintain a clear airway will improve Outcome: Progressing Goal: Ability to maintain adequate ventilation will improve Outcome: Progressing Goal: Complications related to the disease process, condition or treatment will be avoided or minimized Outcome: Progressing Problem: Skin Integrity: Goal: Risk for impaired skin integrity will decrease Outcome: Progressing Problem: Lack of Knowledge: Goal: Ability to develop a pain control plan will improve Outcome: Progressing Goal: Ability to identify pain intensity on a pain scale and rate it consistently will improve Outcome: Progressing Goal: Ability to notify healthcare provider of pain before it becomes unmanageable or unbearable will improve Outcome: Progressing Problem: Medication: Goal: Satisfaction with pain management regimen will improve Outcome: Progressing Problem: Sensory: Goal: Ability to identify factors that increase the pain will improve Outcome: Progressing Goal: Pain level will decrease Outcome: Progressing Problem: Activity: Goal: Ability to return to normal activity level will improve Outcome: Progressing Problem: Lack of Knowledge: Goal: Knowledge of the prescribed therapeutic regimen will improve Outcome: Progressing Problem: Coping: Goal: Ability to cope will improve Outcome: Progressing Problem: Health Behavior: Goal: Identification of resources available to assist in meeting health care needs will improve Outcome: Progressing Problem: Sensory: Goal: Pain level will decrease Outcome: Progressing Problem: Activity: Goal: Mobility will improve Outcome: Progressing Problem: Lack of Knowledge: Goal: Understanding of ways to prevent future skin breakdown will improve Outcome: Progressing Goal: Ability to identify appropriate dietary choices will improve Outcome: Progressing Problem: Nutritional: Goal: Dietary intake will improve Outcome: Progressing Goal: Ability to maintain a balanced intake and output will improve Outcome: Progressing Problem: Skin Integrity: Goal: Risk for impaired skin integrity will decrease Outcome: Progressing Goal: Ability to demonstrate warm and dry skin will improve Outcome: Progressing Goal: Circulation will improve to fullest extent possible Outcome: Progressing Problem: Lack of Knowledge: Goal: Ability to state ways to decrease the risk of falls will improve Outcome: Progressing Problem: Safety: Goal: Will remain free from falls Outcome: Progressing Goal: Will remain free from injury from falls Outcome: Progressing Goal: Will remain free from falls and injury in home environment Outcome: Progressing EMATICIAN RESEARCH * Plan of Care - Amy Calvo RN - 10/10/2023 5:33 PM CST Goals: Clinical Goals for the Shift: monitor for dyspnea and treat. Summary: VSS. Pt rested throughout the shift. Pt received antibiotics as ordered. Pt complains of cough. MD ordered cough drops. Will continue to monitor. Problem: Health Behavior: Goal: Understanding of discharge needs will improve Outcome: Progressing Problem: Activity: Goal: Fatigue will decrease Outcome: Progressing Problem: Cardiac: Goal: Hemodynamic stability will improve Outcome: Progressing Problem: Lack of Knowledge: Goal: Knowledge of disease or condition will improve Outcome: Progressing Goal: Knowledge of the prescribed therapeutic regimen will improve Outcome: Progressing Problem: Coping: Goal: Level of anxiety will decrease Outcome: Progressing Goal: Ability to cope will improve Outcome: Progressing Goal: Ability to establish a method of communication will improve Outcome: Progressing Problem: Nutritional: Goal: Consumption of the prescribed amount of daily calories will improve Outcome: Progressing Problem: Respiratory: Goal: Ability to maintain a clear airway will improve Outcome: Progressing Goal: Ability to maintain adequate ventilation will improve Outcome: Progressing Goal: Complications related to the disease process, condition or treatment will be avoided or minimized Outcome: Progressing Problem: Skin Integrity: Goal: Risk for impaired skin integrity will decrease Outcome: Progressing Problem: Lack of Knowledge: Goal: Ability to develop a pain control plan will improve Outcome: Progressing Goal: Ability to identify pain intensity on a pain scale and rate it consistently will improve Outcome: Progressing Goal: Ability to notify healthcare provider of pain before it becomes unmanageable or unbearable will improve Outcome: Progressing Problem: Medication: Goal: Satisfaction with pain management regimen will improve Outcome: Progressing Problem: Sensory: Goal: Ability to identify factors that increase the pain will improve Outcome: Progressing Goal: Pain level will decrease Outcome: Progressing Problem: Activity: Goal: Ability to return to normal activity level will improve Outcome: Progressing Problem: Lack of Knowledge: Goal: Knowledge of the prescribed therapeutic regimen will improve Outcome: Progressing Problem: Coping: Goal: Ability to cope will improve Outcome: Progressing Problem: Health Behavior: Goal: Identification of resources available to assist in meeting health care needs will improve Outcome: Progressing Problem: Sensory: Goal: Pain level will decrease Outcome: Progressing Problem: Activity: Goal: Mobility will improve Outcome: Progressing Problem: Lack of Knowledge: Goal: Understanding of ways to prevent future skin breakdown will improve Outcome: Progressing Goal: Ability to identify appropriate dietary choices will improve Outcome: Progressing Problem: Nutritional: Goal: Dietary intake will improve Outcome: Progressing Goal: Ability to maintain a balanced intake and output will improve Outcome: Progressing Problem: Skin Integrity: Goal: Risk for impaired skin integrity will decrease Outcome: Progressing Goal: Ability to demonstrate warm and dry skin will improve Outcome: Progressing Goal: Circulation will improve to fullest extent possible Outcome: Progressing Problem: Lack of Knowledge: Goal: Ability to state ways to decrease the risk of falls will improve Outcome: Progressing Problem: Safety: Goal: Will remain free from falls Outcome: Progressing Goal: Will remain free from injury from falls Outcome: Progressing Goal: Will remain free from falls and injury in home environment Outcome: Progressing EMATICIAN RESEARCH * Hospital Course - Karena Hicks MD - 10/10/2023 5:09 PM CST Acute hypoxic respiratory failure in setting of pneumonia and empyema Secondary to pneumonia and loculated parapneumonic effusion. Outpatient doxycycline and Augmentin failed. RPP also positive for rhino/enterovirus. He was started on cefepime during this admission andwas also briefly on vancomycin and azithromycin. Due to concern for empyema, he was given an extended course of antibiotics and was discharged on augmentin to complete 14 day course on 10/17. R chesttube was placed and managed by IP. He initially required BIPAP but has been weaned to RA. ID consulted for + serum galactomannan. Recs to repeat galactomannan and send fungal cultures on pleural fluid to determine clinical significance, which ultimately showed no growth to date. No further treatment given clinical improvement with antibiotics. Follow up with ID outpatient and discuss potential need for repeat chest CT. 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 Pleural fluid cytology neg for malignancy. Med onc consulted. Follow up outpatient. Idiopathic thrombocytopenic purpura On IVIG q4-6 weeks, received 10/09 per onc History of liver transplant S/p OLT 12/03 to autoimmune hepatitis. Current home medications are Tacrolimus 0.5mg q48h, Ursodiol 600mg daily, Aldactone 50mg, Lasix 20mg, which was continued. Hepatology followed peripherally tomonitor tacrolimus levels. Frequency of tacro decreased to q72 hours given elevated tacro levels. Follow up outpatient. 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 He was recently on Maribavir, switched to Foscarnet (EOT 09/07) and Valcyte as he had heterogenous CMV w/ varying resistant types during most recent admission 08/2023, levels stable this admission. He was continued on maintenance/secondary prophylaxis with letermovir and valganciclovir EMATICIAN RESEARCH EMATICIAN RESEARCH EMATICIAN RESEARCH * Consults, Subsequent - Harry Gay MD - 10/10/2023 4:38 PM MATHEMATICIAN RESEARCH Infectious Disease Inpatient Consult Note Infectious Disease Team: Transplant Contact Information: Please see [facility] listing for up-to-date contact information for this ID team Requesting Physician: Amaris James MD Reason for Consult: Diagnostic and treatment recommendations as well as assistance with follow-up care for positive galactomannan Subjective Interval History: Transferred out of ICU and feeling well. No diarrhea. Santana Antimicrobial Therapy: Anti-infectives (From admission, onward) Start Dose/Rate Route Frequency Ordered Stop 10/04/23 0900 letermovir (PREVYMIS) tablet 480 mg 480 mg oral Daily 10/03/23235603/27/24 0859 10/04/23 0030 valGANciclovir (VALCYTE) tablet 900 mg 900 mg oral 2 times daily 10/03/23235603/19/242058 Current Facility-Administered Medications Ordered in [facility] Medication Dose Route Frequency Provider Last Rate Last Admin Carrier Fluids for Secondary Infusion - 0.9% Sodium Chloride 30 mL intravenous PRN Jessica Sapp MD enoxaparin (LOVENOX) syringe 40 mg 40 mg subcutaneous Daily-2100 Lisandra Harper MD 40 mgat 10/09/232023 furosemide (LASIX) tablet 20 mg 20 mg oral Daily Wendy Bonds MD PhD 20 mg at 10/10/23 0838 ipratropium-albuteroL (DUO-NEB) 0.5-2.5 mg/3 mL nebulizer solution 3 mL 3 mL nebulization Q4H PRN (RT) Wendy Bonds MD PhD letermovir (PREVYMIS) tablet 480 mg 480 mg oral Daily Jessica Sapp MD 480 mg at 10/10/23 0848 lidocaine (ASPERCREME) 4 % patch 1 patch 1 patch transdermal Q24H Ileana Tucker MD 1 patch at 10/05/23 2158 methyl salicylate-menthol 15-1 % cream topical QID PRN Wendy Bonds MD PhD Given at 10/04/23 1223 ondansetron (ZOFRAN) injection 4 mg 4 mg intravenous Q6H PRN Jessica Sapp MD sodium chloride 0.9% flush 0.5-20 mL 0.5-20 mL intra-catheter Q8H PIPPA Jessica Sapp MD 10 mL at 10/09/23 2108 sodium chloride 0.9% flush 0.5-20 mL 0.5-20 mL intra-catheter PRN Jessica Sapp MD 10 mL at 10/10/23 0054 spironolactone (ALDACTONE) tablet 50 mg 50 mg oral Daily Jp Bryant Jr., MD 50 mg at 10/10/23 0838 tacrolimus immediate-release capsule 0.5 mg 0.5 mg oral Every other day Wendy Bonds MD PhD 0.5 mg at 10/10/23 0839 ursodioL (ACTIGALL) capsule 600 mg 600 mg oral Daily with dinner Jessica Sapp MD 600 mg at 10/09/23 1734 valGANciclovir (VALCYTE) tablet 900 mg 900 mg oral BID Jessica Sapp MD 900 mg at 10/10/23 0839 No current [facility]-ordered outpatient medications on file. Objective Vitals: 24-hr Min/Max: Temp Min: 36.5 ??C (97.7 ??F) Max: 36.8 ??C (98.2 ??F) Pulse Min: 81 Max: 99 BP Min: 109/56 Max: 121/61 Resp Min: 24 Max: 29 SpO2 Min: 95 % Max: 99 % Most Recent: Vitals: 10/10/23 0925 BP: 109/56 Pulse: 96 Resp: Temp: SpO2: 98% Intake/Output: I/O last 2 completed shifts: In: 1980.1 [P.O.:1560; I.V.:60; IV Piggyback:360.1] Out: 1260 [Urine:1260] Physical Exam: General/Constitutional. Well-appearing and not in acute distress. Head. Anicteric sclerae. No conjunctival hyperemia/inflammation. No nasal or aural discharge. Neck. No obvious masses. Chest/Respiratory. Non-labored breathing on room air. Musculoskeletal/Extremities. No limb edema/deformities. Integument/Skin. No rash appreciated. No jaundice. Neurologic/Psychiatric. Calm. Appropriate mood and affect. Active Lines/Ports/Devices: Peripheral IV 10/03/23 20 G Anterior;Distal;Left;Upper Arm (Active) Number of days: 7 Chest Tube Right (Active) Number of days: 6 Labs: I reviewed the result(s) of the following test(s). CBC: Recent Labs Lab Units 10/10/23 0346 10/05/23 0435 10/04/23 0621 WBC K/cumm 9.1 < > 15.2* HEMOGLOBIN g/dL 10.1* < > 10.6* HEMATOCRIT % 27.3* < > 28.0* PLATELETS K/cumm 242 < > 217 NEUTROS PCT % -- -- 59.6 LYMPHS PCT % -- -- 10.7 MONOS PCT % -- -- 26.0 EOS PCT % -- -- 0.9 < > = values in this interval not displayed. CMP: Recent Labs Lab Units 10/10/23 0346 10/03/23 2212 10/03/23 2206 SODIUM mmol/L 134* < > 131* POTASSIUM PLASMA mmol/L 5.1* < > 5.4* CHLORIDE mmol/L 109 < > 102 CO2 mmol/L 17* < > 21* ANIONGAP mmol/L 8 < > 8 GLUCOSE mg/dL 110 < > 93 POC GLUCOSE MONITOR -- < > -- BUN SERUM mg/dL 40* < > 34* CREATININE mg/dL 1.01 < > 1.13 CALCIUM mg/dL 7.6* < > 8.5 ALBUMIN g/dL -- -- 2.8* ALK PHOS Units/L -- -- 182* ALT Units/L -- -- 30 AST Units/L -- -- 36 BILIRUBIN TOTAL mg/dL -- -- 6.1* < > = values in this interval not displayed. ESR: CRP: UA: Recent Labs Lab Units 10/03/23 1725 COLOR U Yellow CLARITY U Clear SPEC GRAV U 1.039* PH, URINE 6.0 PROTEIN UR QL Trace GLUCOSE URQL Negative KETONES UR Trace BLOOD UR Negative NITRITE UR Negative LEUKOCYTE ESTERASE UR Negative Current CrCl: Estimated Creatinine Clearance: 88.5 mL/min (by Cockcroft-Gault based on SCr of 1.01 mg/dL). Cr. Trend: Recent Labs Lab Units 10/10/23 0346 10/09/23 0447 10/08/232027 CREATININE mg/dL 1.01 1.11 0.91 Microbiology: I reviewed the result(s) of the following test(s). Fungal Cx pleural fluid 10/08 NGTD Fungal BCx 10/07 NGTD Serum GM 10/07 pending Urine histo Ag 10/04 negative Serum GM 10/04 0.670 Radiology: I independently reviewed 10/10 CXR with small residual R pleural effusion. Assessment/Plan Assessment & Medical Decision-Making: This is a 28 y.o. male with an OLT. ID- relevant issues listed below. 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 Recommendations: - Continue Abx therapy with amox-clavulanate 875 mg-125 mg BID through 10/17 then stop. - Await repeat serum GM and fungal BCx on blood and pleural fluid. - Repeat CT in 3-[address] to reassess lung opacities. - Given clinical improvement, would defer bronchoscopy for now but would reconsider if radiographicfindings are progressive or more characteristic for fungal disease. - Continue letermovir and valganciclovir for secondary prophylaxis/maintenance. MDM Supplementary Attestation On this date of service I managed this patient with pneumonia and empyema. They have 1 acute or chronic illness or injury that poses a threat to life or bodily function. I independently interpreted tests such as CBC, basic/comprehensive metabolic panel, cultures which showed findings discussed elsewhere in this note. Management of empyema discussed with Hospital Medicine. Harry Gay M.D. Infectious Disease Attending EMATICIAN RESEARCH * Plan of Care - Tosha Varma RN - 10/10/2023 5:57 AM CST Goals: Clinical Goals for the Shift: monitor for dyspnea and treat. Summary: pt oriented to room and ordering meals, chg bathing, and was able to return demonstration of nurses call light. Denies pain. Right back chest tube drsg d/I without drainage noted. Skin jaundiced slightly. Pt demonstrates steady gait. No additional drainage noted in chest tube this morning.Pt resp at 22. No skin issues noted. A&Ox4. EMATICIAN RESEARCH * Assessment & Plan Note - Karena Hicks MD - 10/09/2023 11:06 PM MATHEMATICIAN RESEARCH Associated Problem(s): Acute respiratory failure with hypoxia (CMS/HCC) (HCC) - secondary to pneumonia and loculated parapneumonic [...] - IP removed chest tube on 10/11 EMATICIAN RESEARCH EMATICIAN RESEARCH * Assessment & Plan Note - Chelsi Weinberg MD - 10/09/2023 10:56 PM MATHEMATICIAN RESEARCH Associated Problem(s): Pneumonia of right lung due to infectious organism, unspecified part of lung(Resolved 10/13/2023) - initially planned to complete empiric 7 day course cefepime 10/10; this was extended to 14 days due to c/f empyema - s/p vancomycin (10/03-10/04), azithromycin (10/04-10/05) EMATICIAN RESEARCH EMATICIAN RESEARCH EMATICIAN RESEARCH * Assessment & Plan Note - Jp Bryant Jr., MD - 10/09/2023 10:55 PM MATHEMATICIAN RESEARCH Associated Problem(s): 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 He was recently on Maribavir, switched to Foscarnet (EOT 09/07) and Valcyte as he had heterogenous CMV w/ varying resistant types duringmost recent admission 08/2023, levels stable this admission. - cont maintenance/secondary prophylaxis with letermovir and valganciclovir EMATICIAN RESEARCH * Assessment & Plan Note - Karena Hicks MD - 10/09/2023 10:51 PM MATHEMATICIAN RESEARCH Associated Problem(s): History of liver transplant (CMS/HCC) (HCC) - S/p OLT 12/03 to autoimmune hepatitis. Current home medications are Tacrolimus 0.5mg q48h, Ursodiol 600mg daily, Aldactone 50mg, Lasix 20mg - Change tacrolimus 0.5mg q48h -> 72 hours per liver txp team recommendations. - Continue ursodiol 600mg daily - restarted on home lasix 20mg daily, and spirolonactone 50 EMATICIAN RESEARCH EMATICIAN RESEARCH EMATICIAN RESEARCH EMATICIAN RESEARCH * Significant Event - Jp Bryant Jr., MD - 10/09/2023 10:35 PM MATHEMATICIAN RESEARCH Transfer note: ICU to oncology service. Patient is a 28 y/o M [facility] OLT 03/1999/ autoimmune hepatitis c/b PTLD and intermittent CMV viremia, ITP s/p splenectomy on IVIG and LUE superficial VTE who initially presented 1 week of cough and back pain and was admitted to MICU for BIPAP and acute hypoxemic respiratory failure secondary to pneumonia and parapneumonic effusion. Patient was started on empiric antibiotics and had 2 thoracentesisbut ultimately had a R sided chest placed. He has since been weaned to room air. ID was consulted as serum galactomannan was positive and recommendations were to obtain additional culture data prior to help determine clinical significance. On transfer to floor the patient states he feels much improved. He does feel like he has some abdominal distention which he feels is similar to when he had volume overload in past. Assessment/Plan Acute hypoxic respiratory failure (HCC) Assessment & Plan - secondary to pneumonia and loculated parapneumonic effussion. RPP also positive for rhino/enterovirus. He was treated with antibiotics and R sided chest tube. He initially required BIPAP but has been weaned to RA. - ID consulted for + serum galactomannan. Recs to repeat galactomannan and send fungal cultures on pleural fluid to determine clinical significance. Follow up mold blood cx as well. - per ICU signout, consult IP for assistance with chest tube management. 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 - s/p vancomycin (10/03-10/04), azithromycin (10/04-10/05) Idiopathic thrombocytopenic purpura (HCC) Assessment & Plan - On IVIG q4-6 weeks, received 10/09 per onc History of liver transplant (CMS/HCC) (HCC) Assessment & Plan - S/p OLT 12/03 to autoimmune hepatitis. 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 He was recently on Maribavir, switched to Foscarnet (EOT 09/07) and Valcyte as he had heterogenous CMV w/ varying resistant types duringmost recent admission 08/2023, levels stable this admission. - cont maintenance/secondary prophylaxis with letermovir and valganciclovir Jp Bryant Jr., MD EMATICIAN RESEARCH EMATICIAN RESEARCH * Significant Event - Ny Zamora MD - 10/09/2023 6:40 PM MATHEMATICIAN RESEARCH ICU TO MEDICINE HANDOFF TOOL Primary reason for ICU admission: Beka Lares is a 28 y.o. 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 Patient was endorsing cough and back pain for the last week, notes that he developed pain to the R lower back last Wednesday and attempted Tylenol and heating pads w/o relief, back pain spread to throughout the back. He developed a productive cough w/ thick white/yellow sputum and worsening ALSTON the day after, notes the cough was waking him up at night. He endorsed some chills, Tmax 100.2 and mild pleuritic chest pain with his cough. He was seen at an OSH Wednesday, diagnosed w/ R sided pneumonia andwas discharged with doxycycline 100mg and amox-clav 875-125mg BID. He denies any nausea, vomiting, diarrhea or constipation, endorsed some pain with urination. Notably, had a previous hospitalization 08/23-09/03 for elevated LFTs, E coli bacteremia (dischargedon Cipro), and CMV viremia. Vitals in the ED T 98.1, HR 102, RR 18, BP 114/74, 93% on RA. Labs notable for WBC 17.1, Hgb 12.1, Platelets 211, Na 135, K 4.9, CO2 21, BUN 35, Cr 1.17, Tbili 5.4, Albumin 2.8, Alk phos 181, AST/ALT 40/30, LDH 293, Lactate 1, INR 1.47, RPP + Rhino/Entero, Tacrolimus 8.9, VBG pH 7.3/pCO2 40, blood cultures pending. UA w/ 1+ bili, neg nitrites, LE. CXR w/ moderate R sided pleural effusion, R airspace opacity possibly pneumonia and atelectasis. CTChest w/ and w/o contrast with partially loculated moderate R and trace L pleural effusions, increased peribronchovascular consolidation and increased smooth interlobular septal line thickening w/ superimposed pulmonary edema and possibly infectious pneumonia. Lumbar spine MRI w/o evidence of OM or spinal epidural abscess. In the ED, thoracentesis was performed with 500cc fluid removed. Thora labs notable for LDH 306, Protein 3.3, Nuc cells 631, cultures NGTD. He noted some improvement in breathing s/p thoracentesis, but subsequently became tachycardic to 120s with increased work of breathing, requiring BiPAP. On CXRs/p thoracentesis, no pneumothorax noted. He was started on vanc/cefe. Brief ICU Course: Following admission to the MICU he was able to be weaned off BiPAP. Bedside POCUS revealed loculated effusion. He underwent a R sided chest tube placement. Thoracentesis studies were sent including flow cytometry and cytology. Unfortunately he only had about 130 cc of utput and alteplase was tried without success. Despite this patient had symptomatic improvement and improved O2 requirements. Active consultants: - liver transplant (following tacro) - Will need to c/s IP for management of chest tube (still in place pending fungal studies) New findings that warrant follow-up and pending studies: CXR with new L sided pleural effusions Pending repeat galactomannan, fungal studies PERTINENT physical exam findings on day of transfer: Lungs CTAB in anterior bai, normal WOB on RA. Important changes to home medications: Patient to receive IVIG while inpatient, please f/u Medications to consider stopping prior to discharge: [] New antipsychotic (started for ICU delirium): [] Other: Major problems/Plans: #Acute Hypoxemic Respiratory Failure #Parapneumonic Effusion Likely 2/2 pneumonia, RPP positive for Rhino/Entero. CXR w/ moderate R sided pleural effusion, R airspace opacity possibly pneumonia and atelectasis. S/p thoracentesis in the ED, consistent with a parapneumonic effusion. CT Chest w/ and w/o contrast s/p thoracentesis with partially loculated moderate R and trace L pleural effusions, increased peribronchovascular consolidation and increased smoothinterlobular septal line thickening w/ superimposed pulmonary edema and possibly infectious pneumonia. Endemic mycoses work-up negative. 10/03-10/04 thoracentesis leukemia/lymphoma flow, cytology negative. Patient initially required supplemental O2 this admission which has been de-escalated to RA. 10/04 Galactomannan 0.67, though low clinical suspicion for fungal pneumonia. - ID c/s, recs appreciated: --- f/u 10/07 mold culture, repeat galactomannan --- send pleural fluid for fungal culture only - cefepime for total 7d course (10/03-10/10) - s/p vancomycin (10/03-10/04), azithromycin (10/04-10/05) - Duonebs q4h prn - s/p thoracentesis 10/03, 10/04, chest tube placement 10/04 - Chest tube changed to water seal on 10/09 morning. - Will need interventional pulmonary consult on floor for management of chest tube - Diuresis as below - IS, CEASAR ChengTC #Back Pain, resolved Likely muscular in nature and iso parapneumonic effusion, Lumbar MRI negative for OM/spinal epidural abscess - Lidocaine patches - prn methyl salicylate-menthol cream - s/p 10mg cyclobenzaprine TID prn, 5mg oxycodone q6h prn (DC'd since no use in 24 hr) - Manage conservatively #Liver Transplant 03/1999 c/b PTLD (c-Myc, EBV+) #Autoimmune Hepatitis #CMV Viremia: S/p OLT c/b PTLD diagnosed in 2016, last chemo in 2017 w/ history of long- term CMV viremia. He has had varying degrees of CMV since 2019 and is followed by Dr[address] Duncan in the ID clinic. He was recently on Maribavir, switched to Foscarnet (EOT 09/07) and Valcyte as he had heterogenous CMV w/ varying resistant types during most recent admission 08/2023, levels stable this admission. Current home medications are Tacrolimus 0.5mg q48h, Valganciclovir 900mg BID, Ursodiol 600mg daily, Letermovir 480mg, Aldactone 50mg, Lasix 20mg. - Continue tacrolimus 0.5mg q48h, follow troughs - Continue ursodiol 600mg daily - Continue valganciclovir 900mg BID - Continue letermovir 480mg daily - Continue home lasix 20mg daily; could escalate to BID for FBG NN 0.5-1L - Holding home aldactone 50mg daily given high normal K and prior hyperkalemia - Hepatology following, appreciate recs - plan for 30g IVIG 10/09 (requested by Onc) #[place] Cr peaked to 1.44 from baseline of 0.8-1.1, now at baseline. Suspect hypovolemia - Diuresis as above #ITP s/p Splenectomy 2012 On IVIG q4-6 weeks, most recently received 08/31/23. - IVIG 500mg/kg (30g) requested by Onc, planned 10/09 #Superficial VTE Noted in LUE during previous admission. Best family contact: Brooklynn Lares (Mother): [phone] Rehab/Ancillary Consults: [] BI (trauma patient with LOC) [] Chemical dependency [] PT [] OT [] Speech [] PM&R [] SMART (stroke patient) [] Wound care Anticoagulation therapy: [x] VTE Prophylaxis [] Heparin [x] Lovenox [] SCDs [] IVC Filter [] Other: [] None - Reason: [] Therapeutic Anticoagulation Indication: [] Heparin [] Lovenox [] Other: Any previous issues with tolerating anticoagulants? [] Yes [] No Describe: Venous duplex performed? [] Yes ---> Most recent findings: [] No Current antimicrobial therapy: Note - Planned duration may be a number of days or a criterion such as while drain in place or until blood cultures negative [] N/A - No current antimicrobial therapy Cefepime 2g q8h Indication: HAP Start Date: 10/03 Planned Duration: 7d, end 10/10 Lines/drains/airways present Peripheral IV 10/03/23 20 G Anterior;Distal;Left;Upper Arm (Active) Number of days: 2 Peripheral IV 10/03/23 20 G Anterior;Left Forearm (Active) Number of days: 2 Chest Tube Right (Active) Number of days: 1 Trach size, last date change (NA if not applicable): NA To-do list prior to transfer: Make sure the following monitors or precautions are ordered if indicated: Telemetry [] Yes [x] No Continuous pulse oximetry [] Yes [x] No WINTER precautions [] Yes [x] No Difficult airway [] Yes [x] No Trach orders/signage [] Yes [] No Size/Type: Date placed: Responsible service: Glycemic control plan [] Long acting insulin [] SSI --> change from scheduled to AC/HS blood glucose checks [x] None ----> d/c ICU insulin and blood glucose checks Central line necessary? [] Yes [x] No [] N/A Flor catheter necessary? [] Yes [x] No [] N/A [x] Discontinue K/Mg/Phos repletion order (if applicable) [x] Discontinue stress ulcer prophylaxis if no longer indicated [x] Signed & Held orders reconciled (all orders either released or discontinued) [x] Sign-out was called to the hospital service. Claudine Nye MD Cosigned by Lisandra Harper MD at 10/17/2023 7:16 AM MATHEMATICIAN RESEARCH EMATICIAN RESEARCH EMATICIAN RESEARCH * Plan of Care - Breanna Torres RN - 10/09/2023 8:28 AM CST Goals: Clinical Goals for the Shift: VSS, monitor chest tube output, promote comfort and safety Summary: Pt awake and engaged in education, states he slept well and has no needs at this time. Problem: Health Behavior: Goal: Understanding of discharge needs will improve Outcome: Progressing Problem: Activity: Goal: Fatigue will decrease Outcome: Progressing Problem: Cardiac: Goal: Hemodynamic stability will improve Outcome: Progressing Problem: Lack of Knowledge: Goal: Knowledge of disease or condition will improve Outcome: Progressing Goal: Knowledge of the prescribed therapeutic regimen will improve Outcome: Progressing Problem: Coping: Goal: Level of anxiety will decrease Outcome: Progressing Goal: Ability to cope will improve Outcome: Progressing Goal: Ability to establish a method of communication will improve Outcome: Progressing Problem: Nutritional: Goal: Consumption of the prescribed amount of daily calories will improve Outcome: Progressing Problem: Respiratory: Goal: Ability to maintain a clear airway will improve Outcome: Progressing Goal: Ability to maintain adequate ventilation will improve Outcome: Progressing Goal: Complications related to the disease process, condition or treatment will be avoided or minimized Outcome: Progressing Problem: Skin Integrity: Goal: Risk for impaired skin integrity will decrease Outcome: Progressing Problem: Lack of Knowledge: Goal: Ability to develop a pain control plan will improve Outcome: Progressing Goal: Ability to identify pain intensity on a pain scale and rate it consistently will improve Outcome: Progressing Goal: Ability to notify healthcare provider of pain before it becomes unmanageable or unbearable will improve Outcome: Progressing Problem: Medication: Goal: Satisfaction with pain management regimen will improve Outcome: Progressing Problem: Sensory: Goal: Ability to identify factors that increase the pain will improve Outcome: Progressing Goal: Pain level will decrease Outcome: Progressing Problem: Activity: Goal: Ability to return to normal activity level will improve Outcome: Progressing Problem: Lack of Knowledge: Goal: Knowledge of the prescribed therapeutic regimen will improve Outcome: Progressing Problem: Coping: Goal: Ability to cope will improve Outcome: Progressing Problem: Health Behavior: Goal: Identification of resources available to assist in meeting health care needs will improve Outcome: Progressing Problem: Sensory: Goal: Pain level will decrease Outcome: Progressing Problem: Activity: Goal: Mobility will improve Outcome: Progressing Problem: Lack of Knowledge: Goal: Understanding of ways to prevent future skin breakdown will improve Outcome: Progressing Goal: Ability to identify appropriate dietary choices will improve Outcome: Progressing Problem: Nutritional: Goal: Dietary intake will improve Outcome: Progressing Goal: Ability to maintain a balanced intake and output will improve Outcome: Progressing Problem: Skin Integrity: Goal: Risk for impaired skin integrity will decrease Outcome: Progressing Goal: Ability to demonstrate warm and dry skin will improve Outcome: Progressing Goal: Circulation will improve to fullest extent possible Outcome: Progressing Problem: Lack of Knowledge: Goal: Ability to state ways to decrease the risk of falls will improve Outcome: Progressing Problem: Safety: Goal: Will remain free from falls Outcome: Progressing Goal: Will remain free from injury from falls Outcome: Progressing [facility]EARCH * Plan of Yulisa Bradley RN - 10/08/2023 9:05 PM MATHEMATICIAN RESEARCH Goals: Clinical Goals for the Shift: (Monitor HDS. Vs. Labs. Strict I&Os.Chest tube mgmt.Sleep hygiene. Promote comfort and safety.) Summary: Problem: Health Behavior: Goal: Understanding of discharge needs will improve Outcome: Progressing Problem: Activity: Goal: Fatigue will decrease Outcome: Progressing Problem: Cardiac: Goal: Hemodynamic stability will improve Outcome: Progressing Problem: Lack of Knowledge: Goal: Knowledge of disease or condition will improve Outcome: Progressing Goal: Knowledge of the prescribed therapeutic regimen will improve Outcome: Progressing Problem: Coping: Goal: Level of anxiety will decrease Outcome: Progressing Goal: Ability to cope will improve Outcome: Progressing Goal: Ability to establish a method of communication will improve Outcome: Progressing Problem: Nutritional: Goal: Consumption of the prescribed amount of daily calories will improve Outcome: Progressing Problem: Respiratory: Goal: Ability to maintain a clear airway will improve Outcome: Progressing Goal: Ability to maintain adequate ventilation will improve Outcome: Progressing Goal: Complications related to the disease process, condition or treatment will be avoided or minimized Outcome: Progressing Problem: Skin Integrity: Goal: Risk for impaired skin integrity will decrease Outcome: Progressing Problem: Lack of Knowledge: Goal: Ability to develop a pain control plan will improve Outcome: Progressing Goal: Ability to identify pain intensity on a pain scale and rate it consistently will improve Outcome: Progressing Goal: Ability to notify healthcare provider of pain before it becomes unmanageable or unbearable will improve Outcome: Progressing Problem: Medication: Goal: Satisfaction with pain management regimen will improve Outcome: Progressing Problem: Sensory: Goal: Ability to identify factors that increase the pain will improve Outcome: Progressing Goal: Pain level will decrease Outcome: Progressing Problem: Activity: Goal: Ability to return to normal activity level will improve Outcome: Progressing Problem: Lack of Knowledge: Goal: Knowledge of the prescribed therapeutic regimen will improve Outcome: Progressing Problem: Coping: Goal: Ability to cope will improve Outcome: Progressing Problem: Health Behavior: Goal: Identification of resources available to assist in meeting health care needs will improve Outcome: Progressing Problem: Sensory: Goal: Pain level will decrease Outcome: Progressing Problem: Activity: Goal: Mobility will improve Outcome: Progressing Problem: Lack of Knowledge: Goal: Understanding of ways to prevent future skin breakdown will improve Outcome: Progressing Goal: Ability to identify appropriate dietary choices will improve Outcome: Progressing Problem: Nutritional: Goal: Dietary intake will improve Outcome: Progressing Goal: Ability to maintain a balanced intake and output will improve Outcome: Progressing Problem: Skin Integrity: Goal: Risk for impaired skin integrity will decrease Outcome: Progressing Goal: Ability to demonstrate warm and dry skin will improve Outcome: Progressing Goal: Circulation will improve to fullest extent possible Outcome: Progressing Problem: Lack of Knowledge: Goal: Ability to state ways to decrease the risk of falls will improve Outcome: Progressing Problem: Safety: Goal: Will remain free from falls Outcome: Progressing Goal: Will remain free from injury from falls Outcome: Progressing Goal: Will remain free from falls and injury in home environment Outcome: Progressing E[facility]IC[facility] RESEARCH * Plan of Care - Cindy Mora RN - 10/08/2023 12:50 PM CST Chart reviewed for medical necessity Report per DCAM: Bipap, diuresis, OOBTC, lidocaine patches, hepatology following, regular diet, SSI, d/c chest tube today ADD: today Plan: transfer to medical division Referrals made: none at this time Support following discharge: family Problem: Establish a safe plan for discharge Goal: Implement a safe discharge with family support and medical follow up Case Management will continue to follow patient to establish a safe and comprehensive discharge plan. KEITH Calvert, cyber forensic specialist EMATICIAN RESEARCH * Plan of Care - Breanna Torres RN - 10/08/2023 8:44 AM CST Goals: Clinical Goals for the Shift: VSS, lab draws, I&Os, emotional support Summary: pt awake and engaged in education. Very flat and blank affect, sullen and sad. Will continue to educate and provide emotional support. Problem: Health Behavior: Goal: Understanding of discharge needs will improve Outcome: Progressing Problem: Activity: Goal: Fatigue will decrease Outcome: Progressing Problem: Cardiac: Goal: Hemodynamic stability will improve Outcome: Progressing Problem: Lack of Knowledge: Goal: Knowledge of disease or condition will improve Outcome: Progressing Goal: Knowledge of the prescribed therapeutic regimen will improve Outcome: Progressing Problem: Coping: Goal: Level of anxiety will decrease Outcome: Progressing Goal: Ability to cope will improve Outcome: Progressing Goal: Ability to establish a method of communication will improve Outcome: Progressing Problem: Nutritional: Goal: Consumption of the prescribed amount of daily calories will improve Outcome: Progressing Problem: Respiratory: Goal: Ability to maintain a clear airway will improve Outcome: Progressing Goal: Complications related to the disease process, condition or treatment will be avoided or minimized Outcome: Progressing Problem: Skin Integrity: Goal: Risk for impaired skin integrity will decrease Outcome: Progressing Problem: Lack of Knowledge: Goal: Ability to develop a pain control plan will improve Outcome: Progressing Goal: Ability to identify pain intensity on a pain scale and rate it consistently will improve Outcome: Progressing Goal: Ability to notify healthcare provider of pain before it becomes unmanageable or unbearable will improve Outcome: Progressing Problem: Medication: Goal: Satisfaction with pain management regimen will improve Outcome: Progressing Problem: Sensory: Goal: Ability to identify factors that increase the pain will improve Outcome: Progressing Goal: Pain level will decrease Outcome: Progressing Problem: Activity: Goal: Ability to return to normal activity level will improve Outcome: Progressing Problem: Lack of Knowledge: Goal: Knowledge of the prescribed therapeutic regimen will improve Outcome: Progressing Problem: Health Behavior: Goal: Identification of resources available to assist in meeting health care needs will improve Outcome: Progressing Problem: Sensory: Goal: Pain level will decrease Outcome: Progressing EMATICIAN RESEARCH * Plan of Care - Mohsen Peña RRT - 10/07/2023 10:20 PM CST Toleration - Patient tolerated without issue.. Bronchial Hygiene Assessment Score - 6 Pulmonary Status Negative History Surgical Status General Surgery Chest X-ray Infiltrates, Lung Mass, Atelectasis, Pleural Effusion Respiratory Pattern Increased, Respiratory Rate 21-25 Mental Status Alert, Cooperative Cough Strong, Productive Breath Sounds Decreased Unilaterally Activity Level Ambulatory O2 Requirement No Oxygen Pt Score Level Suggested Frequency 1-12 1 Turn to bedside for RN to encourage deep breath and cough, IS, or OOB - TID 13-24 2 Implement chosen bronchial hygiene mode with a suggested frequency of - TID 25-36 3 Implement chosen bronchial hygiene mode with a suggested frequency of - TID to Q4 hours Note: Score gives a general indication of pulmonary risk. Clinical judgement may yield a different recommended therapy or frequency. Plan - Patient is able to use the device independently. Per the bronchial hygiene protocol, the ordered therapy will be turned to bedside for nursing to remind and chart EMATICIAN RESEARCH * Plan of Care - Carolyn Singh RN - 10/07/2023 9:28 PM CST Goals: Clinical Goals for the Shift: VSS, labs, I&Os, sleep hygiene Problem: Health Behavior: Goal: Understanding of discharge needs will improve Outcome: Progressing Problem: Activity: Goal: Fatigue will decrease Outcome: Progressing Problem: Cardiac: Goal: Hemodynamic stability will improve Outcome: Progressing Problem: Lack of Knowledge: Goal: Knowledge of disease or condition will improve Outcome: Progressing Goal: Knowledge of the prescribed therapeutic regimen will improve Outcome: Progressing Problem: Coping: Goal: Level of anxiety will decrease Outcome: Progressing Goal: Ability to cope will improve Outcome: Progressing Goal: Ability to establish a method of communication will improve Outcome: Progressing Problem: Nutritional: Goal: Consumption of the prescribed amount of daily calories will improve Outcome: Progressing Problem: Respiratory: Goal: Ability to maintain a clear airway will improve Outcome: Progressing Goal: Ability to maintain adequate ventilation will improve Outcome: Progressing Goal: Complications related to the disease process, condition or treatment will be avoided or minimized Outcome: Progressing Problem: Skin Integrity: Goal: Risk for impaired skin integrity will decrease Outcome: Progressing Problem: Lack of Knowledge: Goal: Ability to develop a pain control plan will improve Outcome: Progressing Goal: Ability to identify pain intensity on a pain scale and rate it consistently will improve Outcome: Progressing Goal: Ability to notify healthcare provider of pain before it becomes unmanageable or unbearable will improve Outcome: Progressing Problem: Medication: Goal: Satisfaction with pain management regimen will improve Outcome: Progressing Problem: Sensory: Goal: Ability to identify factors that increase the pain will improve Outcome: Progressing Goal: Pain level will decrease Outcome: Progressing Problem: Activity: Goal: Ability to return to normal activity level will improve Outcome: Progressing Problem: Lack of Knowledge: Goal: Knowledge of the prescribed therapeutic regimen will improve Outcome: Progressing Problem: Coping: Goal: Ability to cope will improve Outcome: Progressing Problem: Health Behavior: Goal: Identification of resources available to assist in meeting health care needs will improve Outcome: Progressing Problem: Sensory: Goal: Pain level will decrease Outcome: Progressing Problem: Activity: Goal: Mobility will improve Outcome: Progressing Problem: Lack of Knowledge: Goal: Understanding of ways to prevent future skin breakdown will improve Outcome: Progressing Goal: Ability to identify appropriate dietary choices will improve Outcome: Progressing Problem: Nutritional: Goal: Dietary intake will improve Outcome: Progressing Goal: Ability to maintain a balanced intake and output will improve Outcome: Progressing Problem: Skin Integrity: Goal: Risk for impaired skin integrity will decrease Outcome: Progressing Goal: Ability to demonstrate warm and dry skin will improve Outcome: Progressing Goal: Circulation will improve to fullest extent possible Outcome: Progressing Problem: Lack of Knowledge: Goal: Ability to state ways to decrease the risk of falls will improve Outcome: Progressing Problem: Safety: Goal: Will remain free from falls Outcome: Progressing Goal: Will remain free from injury from falls Outcome: Progressing Goal: Will remain free from falls and injury in home environment Outcome: Progressing E[facility]ICIAN RESEARCH * Plan of Janeth - Dee Hernandez RN - 10/07/2023 5:48 PM CST Problem: Health Behavior: Goal: Understanding of discharge needs will improve Outcome: Progressing Problem: Respiratory: Goal: Ability to maintain adequate ventilation will improve Outcome: Progressing Problem: Sensory: Goal: Pain level will decrease Outcome: Progressing Problem: Activity: Goal: Fatigue will decrease Outcome: Ongoing Problem: Cardiac: Goal: Hemodynamic stability will improve Outcome: Ongoing Problem: Lack of Knowledge: Goal: Knowledge of disease or condition will improve Outcome: Ongoing Goal: Knowledge of the prescribed therapeutic regimen will improve Outcome: Ongoing Problem: Coping: Goal: Level of anxiety will decrease Outcome: Ongoing Goal: Ability to cope will improve Outcome: Ongoing Goal: Ability to establish a method of communication will improve Outcome: Ongoing Problem: Nutritional: Goal: Consumption of the prescribed amount of daily calories will improve Outcome: Ongoing Problem: Respiratory: Goal: Ability to maintain a clear airway will improve Outcome: Ongoing Goal: Complications related to the disease process, condition or treatment will be avoided or minimized Outcome: Ongoing Problem: Skin Integrity: Goal: Risk for impaired skin integrity will decrease Outcome: Ongoing Problem: Lack of Knowledge: Goal: Ability to develop a pain control plan will improve Outcome: Ongoing Goal: Ability to identify pain intensity on a pain scale and rate it consistently will improve Outcome: Ongoing Goal: Ability to notify healthcare provider of pain before it becomes unmanageable or unbearable will improve Outcome: Ongoing Problem: Medication: Goal: Satisfaction with pain management regimen will improve Outcome: Ongoing Problem: Sensory: Goal: Ability to identify factors that increase the pain will improve Outcome: Ongoing Problem: Activity: Goal: Ability to return to normal activity level will improve Outcome: Ongoing Problem: Lack of Knowledge: Goal: Knowledge of the prescribed therapeutic regimen will improve Outcome: Ongoing Problem: Coping: Goal: Ability to cope will improve Outcome: Ongoing Problem: Health Behavior: Goal: Identification of resources available to assist in meeting health care needs will improve Outcome: Ongoing Problem: Sensory: Goal: Pain level will decrease Outcome: Ongoing Goals: Clinical Goals for the Shift: room air, ambulate, reduced chest tube output Summary: pt rass 0, cam -. Now on room air. Chest tube output 100mL. Uop 175. BMx2. Ambulated in culp with PT. Afebrile. EMATICIAN RESEARCH * Plan of Care - Carolyn Singh RN - 10/07/2023 4:25 AM CST Goals: Clinical Goals for the Shift: Monitor VS, labs, I&O. maintain chest tube, wean O2, maintain comfort and safety Problem: Health Behavior: Goal: Understanding of discharge needs will improve Outcome: Progressing Problem: Activity: Goal: Fatigue will decrease Outcome: Progressing Problem: Cardiac: Goal: Hemodynamic stability will improve Outcome: Progressing Problem: Lack of Knowledge: Goal: Knowledge of disease or condition will improve Outcome: Progressing Goal: Knowledge of the prescribed therapeutic regimen will improve Outcome: Progressing Problem: Coping: Goal: Level of anxiety will decrease Outcome: Progressing Goal: Ability to cope will improve Outcome: Progressing Goal: Ability to establish a method of communication will improve Outcome: Progressing Problem: Nutritional: Goal: Consumption of the prescribed amount of daily calories will improve Outcome: Progressing Problem: Respiratory: Goal: Ability to maintain a clear airway will improve Outcome: Progressing Goal: Ability to maintain adequate ventilation will improve Outcome: Progressing Goal: Complications related to the disease process, condition or treatment will be avoided or minimized Outcome: Progressing Problem: Skin Integrity: Goal: Risk for impaired skin integrity will decrease Outcome: Progressing Problem: Lack of Knowledge: Goal: Ability to develop a pain control plan will improve Outcome: Progressing Goal: Ability to identify pain intensity on a pain scale and rate it consistently will improve Outcome: Progressing Goal: Ability to notify healthcare provider of pain before it becomes unmanageable or unbearable will improve Outcome: Progressing Problem: Medication: Goal: Satisfaction with pain management regimen will improve Outcome: Progressing Problem: Sensory: Goal: Ability to identify factors that increase the pain will improve Outcome: Progressing Goal: Pain level will decrease Outcome: Progressing Problem: Activity: Goal: Ability to return to normal activity level will improve Outcome: Progressing Problem: Lack of Knowledge: Goal: Knowledge of the prescribed therapeutic regimen will improve Outcome: Progressing Problem: Coping: Goal: Ability to cope will improve Outcome: Progressing Problem: Health Behavior: Goal: Identification of resources available to assist in meeting health care needs will improve Outcome: Progressing Problem: Sensory: Goal: Pain level will decrease Outcome: Progressing Problem: Activity: Goal: Mobility will improve Outcome: Progressing Problem: Lack of Knowledge: Goal: Understanding of ways to prevent future skin breakdown will improve Outcome: Progressing Goal: Ability to identify appropriate dietary choices will improve Outcome: Progressing Problem: Nutritional: Goal: Dietary intake will improve Outcome: Progressing Goal: Ability to maintain a balanced intake and output will improve Outcome: Progressing Problem: Skin Integrity: Goal: Risk for impaired skin integrity will decrease Outcome: Progressing Goal: Ability to demonstrate warm and dry skin will improve Outcome: Progressing Goal: Circulation will improve to fullest extent possible Outcome: Progressing EMATICIAN RESEARCH * Provider Query - Wendy Bonds MD PhD - 10/06/2023 8:16 AM CST Specify a diagnosis that accurately reflects the lab findings, and document in the medical record and on the form below. __x_Hypoalbuminemia ___Other, specify below Additional Provider Response: Clinical Indicators/Treatments: 10/03/23 08:24 10/03/23 22:06 Albumin 2.8 (L) 2.8 (L) (L): Data is abnormally low Orders/Interventions: -monitoring metabolic labs References: From the ICD-10-CM Official Guidelines for Coding and Reporting, use of terms such as likely, suspected, possible, or probable (associated with a specific diagnosis that is being evaluated, monitored, or treated as if it exists) are acceptable and can be coded in the inpatient setting when documented at the time of discharge. This documentation will become part of the patient???s medical record. EMATICIAN RESEARCH * Plan of Care - Ksenia Abebe RN - 10/06/2023 1:35 AM CST Problem: Cardiac: Goal: Hemodynamic stability will improve Outcome: Progressing Problem: Lack of Knowledge: Goal: Knowledge of disease or condition will improve Outcome: Progressing Problem: Lack of Knowledge: Goal: Knowledge of the prescribed therapeutic regimen will improve Outcome: Progressing Goals: Clinical Goals for the Shift: Wean O2, VSS, sleep hygeine, TTF EMATICIAN RESEARCH * Provider Query - Ny Zamora MD - 10/05/2023 3:15 PM MATHEMATICIAN RESEARCH Specify the etiology of the patient???s symptoms. Document in the medical record and on the form below. __X_ Sepsis (infection plus systemic manifestations) ___ Pneumonia WITHOUT systemic manifestations ___ Other, specify below Additional Provider Response: Clinical Indicators/Treatments: 10/03 ED Provider: Tachypneic here, tachycardic. CXR shows pleural effusion right, which was tapped in ED (effusion not empyema). Now on 4-5L (no baseline O2 req) desats to low 80s, now on bipap Pneumonia of Right lung Parapneumonic effusion. Sepsis without acute organ dysfunction 10/03 MICU H&P: #Acute Hypoxemic Respiratory Failure. #Parapneumonic Effusion Likely 2/2 pneumonia, RPP positive for Rhino/Entero. VS on arrival: 36.7 (98.1), 102, 18, 114/74, 93% Initial 24hr Min/Max: T 36.3 (97.3) - 37.9 (100.2) RR 18 - 37 RR 93 - 130 BP 99/78 - 146/75 10/03/23 08:24 10/03/23 09:26 10/03/23 22:06 10/04/23 06:21 10/05/23 04:35 Lactate 1.0 1.1 WBC 17.1 (H) 14.8 (H) 15.2 (H) 10.8 (H) (H): Data is abnormally high Orders/Interventions: -cefepime, azithromycin References: Adult SIRS/Sepsis Screening Criteria SIRS Temp >38.3 C (100.9 F) or <36 (96.8 F) HR (pulse) >90 Respiratory rate >20 WBC > 12,000 or <4,000 or >10% bands Sepsis 2 of 4 SIRS criteria present AND suspected/confirmed source of infection Severe Sepsis Sepsis plus at least one sign of NEW hypoperfusion or organ dysfunction not limited to but may include: Lactate >2 mmol/L INR > 1.5 or aPTT >60 seconds Platelet count <100,000 ?L?1 Bilirubin >2 mg/dL Creatinine >2 mg/dL (if no documentation of renal failure) Urine output <0.5 mL/kg/hr x 2 hours Acute respiratory failure with new need for mechanical ventilation or noninvasive ventilation Altered mental status or Encephalopathy (new or acutely worsened due to infection) One or more reading(s) of hypotension prior to 30ml/kg fluid bolus (SBP< 90 mmHG or MAP< 65, or SBP decrease of > 40 mmHG from baseline) From the ICD-10-CM Official Guidelines for Coding and Reporting, use of terms such as likely, suspected, possible, or probable (associated with a specific diagnosis that is being evaluated, monitored, or treated as if it exists) are acceptable and can be coded in the inpatient setting when documented at the time of discharge. This documentation will become part of the patient???s medical record. EMATICIAN RESEARCH * Provider Query - Ny Zamora MD - 10/05/2023 3:14 PM MATHEMATICIAN RESEARCH Specify the patient???s Renal Status and document in the medical record and on the form below. __X_AKI ___Other, specify below Additional Provider Response: Clinical Indicators/Treatments: 09/07/23 Historical 10/03/23 08:24 10/03/23 22:06 10/04/23 06:21 10/04/23 14:47 10/05/23 04:35 Creatinine 0.82 1.17 1.13 1.24 1.22 1.44 (H) Orders/Interventions: -monitoring I/O, BMP daily References: National Kidney Foundation KDIGO Conference Definition of WATSON WATSON Any of the following: Increase in SCr by >=0.3 mg/dl within 48 hours* Increase in SCr to >=1.5 times baseline, which is known or presumed to have occurred within the prior 7 days Urine volume < 0.5 ml/kg/h for 6 hours *Once the creatinine is above 3 mg/dL, the SCr increase by >=0.3 becomes less significant If provider believes patient has WATSON in the absence of above clinical indicators, please document rationale and clinical impression in detail WATSON References Kidney Disease: Improving Global Outcomes (KDIGO) Acute Kidney Injury Work Group. KDIGO Clinical Practice Guideline for Acute Kidney Injury. Kidney Inter., Suppl 2012: 2: 1-138 2019 CDI Pocket Guide, Jory and Aakash, WATSON pages 59-61 From the ICD-10-CM Official Guidelines for Coding and Reporting, use of terms such as likely, suspected, possible, or probable (associated with a specific diagnosis that is being evaluated, monitored, or treated as if it exists) are acceptable and can be coded in the inpatient setting when documented at the time of discharge. This documentation will become part of the patient???s medical record. EMATICIAN RESEARCH * Provider Query - Ny Zamora MD - 10/05/2023 3:14 PM MATHEMATICIAN RESEARCH Based on the clinical indicators and antibiotic choice, specify the most likely pneumonia being treated. Document in the medical record and on the form below. Select all conditions being treated: ____Gram negative pneumonia ____Gram positive pneumonia ____Staph pneumonia ____Strep pneumonia ____Bacterial pneumonia, unspecified ____Bacterial pneumonia superimposed on a viral pneumonia, specify organism if known __X__Viral pneumonia ____Other, specify below Additional Provider Response: Clinical Indicators/Treatments: 10/03 ED Provider: presents for 1 week of productive cough and back pain. developed cough productive of thick white/yellow sputum, and associated with dyspnea on exertion. Cough is significant enough to interfere with sleep. Immunosuppressed with tacrolimus. 10/03 H&P: #Acute Hypoxemic Respiratory Failure #Parapneumonic Effusion Likely 2/2 pneumonia, RPP positive for Rhino/Entero. CXR w/ moderate R sided pleural effusion, R airspace opacity possibly pneumonia and atelectasis. 10/04 Progress Note: Pleural studies consistent with exudative effusion. AHRF: +RV/EV, possible secondary bacterial PNA. Per MAR: azithromycin (ZITHROMAX) tablet 500 mg cefepime (MAXIPIME) 2,000 mg/20 mL in sterile water (premix) 2,000 mg vancomycin 1,000 mg/200 mL in dextrose 5% (premix) 1,000 mg (now discontinued) References: NOTE: CAP and HCAP do not indicate the organism being treated. Organism Common Antibiotics Gram-Negative Organisms, such as: Achromobacter Acinetobacter Citrobacter Enterobacter E. coli Haemophilus Klebsiella Proteus mirabilis Pseudomonas Amikacin Amoxicillin/Clavulanic Acid Ampicillin Aztreonam Cefazolin Cefepime Cefiderocol Ceftazidiime Ceftolozane-Tazobactam Ceftriaxone Ciprofloxacin Ertapenem Fosfomycin Gentamicin Levofloxacin Meropenem Nitrofurantoin Piperacillin/Tazobactam Tetracycline Tobramycin Trimeth/Sulfa Gram-Positive Organisms, such as: MRSA MSSA Staphylococcus Enterococcus Streptococcus Corynebacterium Ampicillin Benzylpenicillin Cefazolin Ceftaroline Ceftriaxone Clindamycin Doxycycline Erythromycin Gentamycin (high-level) Linezolid Nitrofurantoin Oxacillin Penicillin Streptomycin (high-level) Tetracycline Trimeth/Sulfa Vancomycin References [facility] Antibiogram 2021 [facility] Antibiogram 2021 [facility] Antibiogram 2021 From the ICD-10-CM Coding Guidelines, use of terms such as likely, suspected, possible, or probable(associated with a specific diagnosis that is being evaluated, monitored, or treated as if it exists) are acceptable and can be coded in the inpatient setting when documented at the time of discharge. This documentation will become part of the patient???s medical record. EMATICIAN RESEARCH * Provider Query - Ny Zamora MD - 10/05/2023 3:14 PM MATHEMATICIAN RESEARCH Specify a diagnosis that accurately reflects the lab findings, and document in the medical record and on the form below. __X_Hyponatremia ___Other, specify below Additional Provider Response: Clinical Indicators/Treatments: 10/03/23 08:24 10/03/23 22:06 10/04/23 06:21 10/04/23 14:47 10/05/23 04:35 Sodium 135 131 (L) 132 (L) 132 (L) 133 (L) (L): Data is abnormally low Orders/Interventions: -monitoring BMP daily References: From the ICD-10-CM Official Guidelines for Coding and Reporting, use of terms such as likely, suspected, possible, or probable (associated with a specific diagnosis that is being evaluated, monitored, or treated as if it exists) are acceptable and can be coded in the inpatient setting when documented at the time of discharge. This documentation will become part of the patient???s medical record. EMATICIAN RESEARCH * Provider Query - Ny Zamora MD - 10/05/2023 3:13 PM MATHEMATICIAN RESEARCH sodium zirconium cyclosilicate (LOKELMA) packet 10 g was ordered for administration on 10/04. Specify a diagnosis to support the need for this medication. __X_ Hyperkalemia ___ Other, specify below Additional Provider Response: Clinical Indicators/Treatments: 10/03/23 08:24 10/03/23 22:06 10/04/23 06:21 10/04/23 14:47 10/05/23 04:35 Potassium, pl 4.9 5.4 (H) 5.4 (H) 5.4 (H) 5.7 (H) (H): Data is abnormally high Orders/Interventions: -monitoring BMP daily References: From the ICD-10-CM Official Guidelines for Coding and Reporting, use of terms such as likely, suspected, possible, or probable (associated with a specific diagnosis that is being evaluated, monitored, or treated as if it exists) are acceptable and can be coded in the inpatient setting when documented at the time of discharge. This documentation will become part of the patient???s medical record. EMATICIAN RESEARCH * Plan of Care - Mohsen Peña RRT - 10/05/2023 1:55 AM CST NPPV remains on standby through out the night. EMATICIAN RESEARCH * Plan of Care - Dakota Duncan RN - 10/05/2023 1:31 AM CST Goals: Clinical Goals for the Shift: wean 02, VSS, improve oxygenation, monitor pain levels Summary: EMATICIAN RESEARCH * Plan of Care - Jax Ileana Magali, CARBURETOR REBUILDER - 10/04/2023 5:20 PM CST Respiratory Medication Plan Situation: Patient is currently scheduled to receive Duo-Neb (Albuterol/Ipratropium), QID Home Medications: Current Outpatient Medications Medication Instructions 0.9 % sodium chloride (sodium chloride 0.9%) parenteral solution 10 mL, intravenous, As needed budesonide (PULMICORT) 0.5 mg, Daily furosemide (LASIX) 20 mg, oral, Daily INV-BJ heparin lock flush, porcine, 5 mL, intravenous, As needed letermovir (PREVYMIS) 480 mg, oral, Daily magnesium oxide (MAG-OX) 400 mg, oral, 2 times daily, Take while on foscarnet spironolactone (ALDACTONE) 50 mg, oral, Daily tacrolimus 0.5 mg, oral, Every other day ursodioL (ACTIGALL) 600 mg, oral, Daily with dinner valGANciclovir (VALCYTE) 900 mg, oral, 2 times daily Bronchodilator Assessment Score: 1 Pulmonary Status Negative History, FEV1 > 80% predicted Surgical Status No Surgery Chest X-Ray Clear or Not Indicated Resp Pattern Regular, Respiratory Rate less than or equal to 20 Mental Status Alert, Oriented, Cooperative Cough Strong, Productive Breath Sounds Clear Level of Activity Ambulatory O2 Requirement No Oxygen Oxygen therapy: SpO2 93 % O2 Therapy Supplemental oxygen Pulse Rate: Pre Treatment 103 bpm Post Treatment 103 Respiratory Rate: Pre Treatment 17 bpm Post Treatment 17 Respiratory Assessment: Resp Effort Unlabored Depth & Rhythm Regular Assessment Symmetrical BRONCHODILATOR EVALATION /ASSESSMENT SCORE 0-6 Q4 PRN Therapy* or Home Regimen, Intermittent wheezing, or SOB 7-13 QID Therapy Wheezing or periodic SOB 14-19 Q6 Therapy Increased wheezing and/or SOB 20-26 Q4 Therapy Increased wheezing and/or SOB, Difficulty sleeping >26 Contact MD/FERNANDO Severe Wheezing, SOB, Difficulty sleeping Toleration: Patient tolerated treatment well. Plan: transition just the bronchodilator frequency. Per bronchodilator protocol, the patient qualifies for a change in medication frequency, however, their medication will stay the same, Duo-Neb (Albuterol/Ipratropium). The medication frequency will transition from QID to Q4 PRN. RT will proceed with thenew treatment regimen, continue to assess the patient, and intervene as needed. EMATICIAN RESEARCH * Plan of Care - Niurka Peters RRT - 10/04/2023 11:44 AM CST Respiratory Medication Plan Situation: Patient is currently scheduled to receive Duo-Neb (Albuterol/Ipratropium), QID Home Medications: Current Outpatient Medications Medication Instructions 0.9 % sodium chloride (sodium chloride 0.9%) parenteral solution 10 mL, intravenous, As needed budesonide (PULMICORT) 0.5 mg, Daily furosemide (LASIX) 20 mg, oral, Daily INV-[facility] heparin lock flush, porcine, 5 mL, intravenous, As needed letermovir (PREVYMIS) 480 mg, oral, Daily magnesium oxide (MAG-OX) 400 mg, oral, 2 times daily, Take while on foscarnet spironolactone (ALDACTONE) 50 mg, oral, Daily tacrolimus 0.5 mg, oral, Every other day ursodioL (ACTIGALL) 600 mg, oral, Daily with dinner valGANciclovir (VALCYTE) 900 mg, oral, 2 times daily Bronchodilator Assessment Score: 1 Pulmonary Status Negative History, FEV1 > 80% predicted Surgical Status No Surgery Chest X-Ray Clear or Not Indicated Resp Pattern Regular, Respiratory Rate less than or equal to 20 Mental Status Alert, Oriented, Cooperative Cough Strong, Productive Breath Sounds Clear Level of Activity Ambulatory O2 Requirement No Oxygen Oxygen therapy: SpO2 96 % O2 Therapy Supplemental oxygen Pulse Rate: Pre Treatment 88 bpm Post Treatment 92 Respiratory Rate: Pre Treatment 26 bpm Post Treatment 24 Respiratory Assessment: Resp Effort Unlabored Depth & Rhythm Regular Assessment Symmetrical BRONCHODILATOR EVALATION /ASSESSMENT SCORE 0-6 Q4 PRN Therapy* or Home Regimen, Intermittent wheezing, or SOB 7-13 QID Therapy Wheezing or periodic SOB 14-19 Q6 Therapy Increased wheezing and/or SOB 20-26 Q4 Therapy Increased wheezing and/or SOB, Difficulty sleeping >26 Contact MD/FERNANDO Severe Wheezing, SOB, Difficulty sleeping Toleration: Patient tolerated treatment well. Plan: I have spoken with the patient, and we have agreed to keep the current orders, without change. RT will continue to monitor the patient's progress. EMATICIAN RESEARCH * Plan of Care - Leyla Lopes RN - 10/04/2023 10:44 AM CST Goals: Clinical Goals for the Shift: wean 02, VSS, improve oxygenation, monitor pain levels Problem: Health Behavior: Goal: Understanding of discharge needs will improve Outcome: Progressing Problem: Activity: Goal: Fatigue will decrease Outcome: Progressing Problem: Cardiac: Goal: Hemodynamic stability will improve Outcome: Progressing Problem: Lack of Knowledge: Goal: Knowledge of disease or condition will improve Outcome: Progressing Goal: Knowledge of the prescribed therapeutic regimen will improve Outcome: Progressing Problem: Coping: Goal: Level of anxiety will decrease Outcome: Progressing Goal: Ability to cope will improve Outcome: Progressing Goal: Ability to establish a method of communication will improve Outcome: Progressing Problem: Nutritional: Goal: Consumption of the prescribed amount of daily calories will improve Outcome: Progressing Problem: Respiratory: Goal: Ability to maintain a clear airway will improve Outcome: Progressing Goal: Ability to maintain adequate ventilation will improve Outcome: Progressing Goal: Complications related to the disease process, condition or treatment will be avoided or minimized Outcome: Progressing Problem: Skin Integrity: Goal: Risk for impaired skin integrity will decrease Outcome: Progressing Problem: Lack of Knowledge: Goal: Ability to develop a pain control plan will improve Outcome: Progressing Goal: Ability to identify pain intensity on a pain scale and rate it consistently will improve Outcome: Progressing Goal: Ability to notify healthcare provider of pain before it becomes unmanageable or unbearable will improve Outcome: Progressing Problem: Medication: Goal: Satisfaction with pain management regimen will improve Outcome: Progressing Problem: Sensory: Goal: Ability to identify factors that increase the pain will improve Outcome: Progressing Goal: Pain level will decrease Outcome: Progressing Problem: Activity: Goal: Ability to return to normal activity level will improve Outcome: Progressing Problem: Lack of Knowledge: Goal: Knowledge of the prescribed therapeutic regimen will improve Outcome: Progressing Problem: Coping: Goal: Ability to cope will improve Outcome: Progressing Problem: Health Behavior: Goal: Identification of resources available to assist in meeting health care needs will improve Outcome: Progressing Problem: Sensory: Goal: Pain level will decrease Outcome: Progressing EMATICIAN RESEARCH * Initial Assessments - Sherlyn PalmerYAAKOV - 10/04/2023 10:40 AM MATHEMATICIAN RESEARCH Social Work Assessment Clinical Dx: Pneumonia of right lung due to infectious organism, unspecified part of lung Past Medical History: Date of last inpatient admission: Previous admit date: 08/23/2023 Number of inpatient admissions in past year: 2 Patient Information: Information Obtained From: Patient Marital Status: Not Does Pt have Legal Guardian, Surrogate Decision Maker or Healthcare Agent? 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 Patient reported to that his sister also lives there) Type of Residence: Private residence Income: Employed (discussed FMLA and patient denied needing help) How do you Pay for Medication: prescription benefits Current Transportation: Own vehicle, Family/friends (10/04/23 1037) Legal History: Legal History Legal Information : No legal issues (10/04/23 1037) Support Systems and Spirituality: Support Systems and Spirituality Support System: Parent, Other family members Parent Name/Contact Information: mom Brooklynn Lares [phone], dad Theodore Lares [phone] Other Family Member Name/Contact Information: brother Héctor Lares [phone] Do you have a Christianity Preference or Affiliation?: Yes Preference/Affiliation : Anabaptism History of physical abuse? : No History of physically abusing others? : No History of sexual abuse?: No History of sexually abusing others? : No History of Mental/Emotional Abuse? : No (10/04/23 1037) Strengths, Assets, Liabilities and Stressors: Strengths, Assets, Liabilities, and Stressors Does Pt have access to Employee Assistance Program: Yes (10/04/23 1037) SDOH Transportation Needs: No Transportation Needs (10/04/2023) PRAPARE - Transportation Lack of Transportation (Medical): No Lack of Transportation (Non-Medical): No Financial Resource Strain: Low Risk (10/04/2023) Overall Financial Resource Strain (CARDIA) Difficulty of Paying Living Expenses: Not very hard Housing Stability: Low Risk (10/04/2023) Housing Stability Vital Sign Unable to Pay for Housing in the Last Year: No Number of Places Lived in the Last Year: 1 Unstable Housing in the Last Year: No Social Connections: Moderately Isolated (10/04/2023) Social Connection and Isolation Panel [NHANES] Frequency of Communication with Friends and Family: More than three times a week Frequency of Social Gatherings with Friends and Family: More than three times a week Attends Christianity Services: 1 to 4 times per year Active Member of Clubs or Organizations: No Attends Club or Organization Meetings: Never Marital Status: Never Food Insecurity: No Food Insecurity (10/04/2023) Hunger Vital Sign Worried About Running Out of Food in the Last Year: Never true Ran Out of Food in the Last Year: Never true Tobacco Use: High Risk (10/03/2023) Patient History Smoking Tobacco Use: Never Smokeless Tobacco Use: Current Passive Exposure: Not on file Alcohol Use: Alcohol Misuse (09/01/2023) AUDIT-C Frequency of Alcohol Consumption: Monthly or less Average Number of Drinks: 5 or 6 Frequency of Binge Drinking: Monthly PHQ Screening Over the last 2 weeks, how often have you been bothered by any of the following problems? Little Interest or Pleasure in Doing Things: Not at all Feeling Down, Depressed, or Hopeless: Several days PHQ-2 Total Score (If total score is 3 or more points, staff should administer the PHQ-9): 1 Current/Former Smokers - Passive Exposure Questions Responses Current/Former Smoker - passive exposure (e.g., household member smoking)? No E-Cigarette/Vaping Questions Responses E-cigarette/Vaping Use Never User Substance Abuse, Mental Health, and Trauma History: Chemical Dependency, Mental Health & Trauma History Chemical Dependency: patient denied any history or current concerns Mental Health: patient denied any history or current concerns (10/04/23 1037) Risk to Self and Others: Risk to Self and Others Violence risk to self in past 6 months? : No Self Harm/Suicidal Ideation Plan: No Previous Self Harm/Suicidal Attempts: No Violence risk to others in past 6 months? : No Any lifetime risk of violence to others? : No Current Plans to Harm Another: No (10/04/23 1037) Impressions and Recommendations: Social Work was consulted for 30 day readmission. Met with pt at bedside and completed assessment. Discussed bills, food, transportation, housing, and social supports. Patient lives at home with parents (mom Brooklynn Lares [phone] and dad Theodore Lares [phone]) and sister. Patient works full-time and stated awareness of how to navigate [facility] if needed. Patient denied concerns about his employment. Patient stated they do fine affording housing, utilities, and food. Patient drives himself or has family to help if needed. Patient denied any resource needs or concerns at this time. Patient does not have an advanced directive on file but verbally nominated brother Héctor Lares [phone] as surrogate decision maker in the event that he became unable to make decisions for himself. Patient declined to completed an advanced directive. MCKENZIE Gonzales, YAAKOV EMATICIAN RESEARCH * Initial Assessments - Juanita Hinds RN - 10/04/2023 9:10 AM MATHEMATICIAN RESEARCH CM Initial Assessment Interview Note Admission Source: non healthcare Impression: 28 y.o. 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 Plan Includes: Case management following for discharge planning and referrals as needed. Patient lives with his parents for support and anticipates return to home when medically stable. CM to follow 02 requirements prior to discharge. Primary Source of Transportation: Does the patient need discharge transport arranged?: No (10/04/23 0903) Mother, Brooklynn Lares, Father, Theodore Lares, Health Insurance Coverage: Aetna, patient employeed Prescription Coverage: has rx coverage Pharmacy: CM confirmed patient's preferred community pharmacy is the [facility] in [facility] on [facility] in [place] . CM reviewed use of mobile pharmacy with patient to secure discharge prescriptions. [id number] - [place], [place] - [address] [facility] [address] [facility] [place] - [address] [address] [facility] [address] [facility] - [address] [address] [facility] [address] [place] [address] [place] [address] [place] [address] [address] [address] [facility] [phone] [facility] [address] [place], [place] - [address] [facility] [address] [place] [address] Primary Care Provider: Beka Nick MD Verified with patient Prior to Admission: Functional Status: Independent with ADLs Primary Caregiver: Self Support System: Parent (mother/father Brooklynn and Theodore Simone, ) Durable Medical Equipment: None Living Arrangements: Parent (patient lives with his parents and sister) Type of Residence: Private residence (bedroom in basement) Steps in home?: Yes, Outside of home Number of steps inside: 12 steps (10-12 to basement bedroom) Number of steps outside: 1 steps (10/04/23 0904) Potential discharge needs include: Home Health: None (10/04/23903) Dialysis: no Behavioral Health Services: Behavioral Health Services: No (10/04/23903) Patient expects to be Discharged to: Private residence, (10/04/23903) Additional Information: CM interviewed patient at bedside for initial assessment. CM role reviewed.Address and phone verified to face sheet. Prior level of function:independent with ADLs HH: Recently open with [facility] for IV foscarnet for CMV. No longer active. Liver/outpatient labs: outpatient at [facility] every other week per patient Patient's Identified Problem/Goal Problem: Ensure acute medical [...] Collaboration with patient, MD, direct care nurse, Returned Goods Sorter, and other members of the health care team to assure needed interventions completed. 2. Return patient to optimal level of self-care post discharge. 3. Warehouse Sorter will follow for Discharge Planning - interventions as needed 4. Anticipated level of care at discharge 5. Planned Discharge Disposition Based on a comprehensive family assessment, assistance with instrumental activities of daily livingafter discharge will be provided by parents. Through the course of our work I determined that the parents possess the skill and ability to provide and monitor the care of the patient when he or she returns home. Parents have the capacity to provide/monitor/arrange for the care of the patient. Finally, we determined that parents have the knowledge of available resources and that combining them with their existing resources will suffice to sustain and care for the patient when he or she returns home. The treatment team is aware of this information. All are in agreement with the aftercare plan. Juanita Castellanos RN,BSN Warehouse Sorter, For emergency needs from 4:31pm-7:59am, please call the security assurance analyst at [phone]. For weekend/holiday needs from 8:00am -4:30pm please call the Weekend Warehouse Sorter at [phone]. EMATICIAN RESEARCH EMATICIAN RESEARCH * Plan of Care - Mohsen Peña RRT - 10/04/2023 1:45 AM CST NPPV - PATIENT WORE Situation: The patient was ordered on NPPV for respiratory distress due to resp distress. Patient was placed on their hospital provided NPPV machine. Settings: NPPV Mode: Spontaneous-time Set Breath Rate: 16 breaths/min IPAP Pressure: 10 cm H2O EPAP Min Pressure: 5 cm H20 FIO2: 40 %. Tolerance: The patient tolerated the NPPV without issue. Plan: Proceed as ordered and continue to monitor the patient. EMATICIAN RESEARCH * Plan of Care - Candace Matthew RN - 10/03/2023 10:13 PM CST Problem: Health Behavior: Goal: Understanding of discharge needs will improve Outcome: Ongoing Problem: Activity: Goal: Fatigue will decrease Outcome: Ongoing Problem: Cardiac: Goal: Hemodynamic stability will improve Outcome: Ongoing Problem: Lack of Knowledge: Goal: Knowledge of disease or condition will improve Outcome: Ongoing Goal: Knowledge of the prescribed therapeutic regimen will improve Outcome: Ongoing Problem: Coping: Goal: Level of anxiety will decrease Outcome: Ongoing Goal: Ability to cope will improve Outcome: Ongoing Goal: Ability to establish a method of communication will improve Outcome: Ongoing Problem: Nutritional: Goal: Consumption of the prescribed amount of daily calories will improve Outcome: Ongoing Problem: Respiratory: Goal: Ability to maintain a clear airway will improve Outcome: Ongoing Goal: Ability to maintain adequate ventilation will improve Outcome: Ongoing Goal: Complications related to the disease process, condition or treatment will be avoided or minimized Outcome: Ongoing Problem: Skin Integrity: Goal: Risk for impaired skin integrity will decrease Outcome: Ongoing Goals: Clinical Goals for the Shift: admit MICU, VSS, wean Bipap as tolerated Summary: Pt admitted to MICU for respiratory distress requiring Bipap. Pt presents tachycardic and tachypnic. Other VSS. Pt remains on Bipap at this time EMATICIAN RESEARCH * ED Procedure Note - Jez Nash MD - 10/03/2023 9:42 PM CSTAssociated Order(s): ECG 12 lead Procedure ECG 12 lead Date/Time: 10/03/2023 9:42 PM Performed by: Jez Nash MD Authorized by: Dannie Callahan MD Rate: ECG rate: 124 ECG rate assessment: tachycardic Rhythm: Rhythm: sinus tachycardia Ectopy: Ectopy: none QRS: QRS axis: Normal QRS intervals: Normal Conduction: Conduction: normal ST segments: ST segments: Normal T waves: T waves: inverted Inverted: III, V1 and V2 Previous ECG: Previous ECG: Compared to current Date of previous EC08/31/2023 Similarity: No change Interpretation: Interpretation: No significant change Recommended Follow-up: Recommended follow up: further workup in the ED Jez Nash MD 10/03/232141 EMATICIAN RESEARCH * ED Procedure Note - Hans Najera Jr., MD - 10/03/2023 7:45 PM MATHEMATICIAN RESEARCH Associated Order(s): Critical Care Procedure Critical Care Performed by: Hans Najera Jr., MD Authorized by: Hans Najera Jr., MD Critical care provider statement: As reflected in the history, physical exam, orders, notes, and/or MDM, I was personally present while the patient was critically ill and provided critical care services for 50 minutes, excluding timeinvolved in separately billable procedures. Critical care was necessary to treat or prevent imminent or life- threatening deterioration of the following condition(s): unstable vital signs hypoxic respiratory failure, acute respiratory insufficiency and severe respiratory condition pneumonia and severe infectious condition Critical care was time spent by me providing the following: continuous telemetry, continuous pulse oximetry, continuous capnography, interpretation of bedside monitors, imaging, and arterial/venous lab draws, serial bedside patient exams and resuscitation with fluids frequent neurologic exams Eval and reeval, d/w patient, d/w mother, reviewing workup, reviewing epic notes, documenting, discussion with pt goals of care, d/w hospitalist, admitting to ICU, starting and monitoring bipap supplemental oxygen, frequent bronchodilator treatments and non-invasive positive pressure ventilator management review prior cultures/records, obtain appropriate cultures, empiric broad coverage antibiotics and review current gram stain results I provided emergent necessary critical care medicine [...] spent time documenting in the medical record. I admitted this patient to an Intensive Care unit (ICU) and discussed management with the admitting team. I admitted this patient to a continuous cardiac monitored bed. Hans Najera Jr., MD 10/03/231947 EMATICIAN RESEARCH * ED Re-evaluation Note - Hans Najera Jr., MD - 10/03/2023 7:12 PM MATHEMATICIAN RESEARCH ED Re-evaluation TRANSITION OF CARE: I, Lisandra Boo MD along with Hans Najera Jr., MD, am taking signout from the previousresident and assuming care of this patient. I have reviewed all pertinent vital signs, allergies, and history available in the chart. Triage note: Pt to ED from home with c/o productive cough and right flank pain. Pt was seen at [facility] on Wednesday and diagnosed with pneumonia to the right lung, now feels as though it maybe going into the left lung. Pt was started on abx but not feeling any better. PmHx: Non-Hodgkin's Lymphoma, PE, CMV On arrival pt is A&Ox4, denies any CP/N/V/D. Summary: 28 y.o. 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 Pain is in his right shoulder blade to lower back. Cough productive of thick white sputum. Pneumonia failed outpatient treatment. Fluid was tapped and it showed an empyema. Remains tachy. CT PE was negative except for re accumulation. Negative CT spine. Already signed out to MICU team. Pending/Dispo: Admission to MICU, held for bed availability. ED Course as of 10/04/23 1441 Time: 10/03 0853 Value: WBC(!): 17.1 Comment: (Reviewed) By: Yulisa Joy MD Time: 10/03 09 Value: XR Chest Pa Lateral 2 Vw Comment: EXAMINATION: 2 view chest radiograph IMPRESSION: Comparison is made to CT dated 08/23/2023. There is moderate right sized pleural effusion. Associated right airspace opacity may represent a combination of pneumonia and atelectasis in the appropriate clinical setting. The left lung is clear. No pneumothorax. Cardiomediastinal silhouette is partially obscured Electronically signed by: Roxy Mai M.D. By: Yulisa Joy MD Time: 10/03 907 Value: Comprehensive metabolic panel(!): Sodium 135 Potassium, pl 4.9 Chloride 105 CO2 21(!) Anion gap 9 BUN 35(!) Creatinine 1.17 Glucose 117 Calcium 8.5 Bilirubin, total 5.4(!) Protein, pl 5.1(!) Albumin 2.8(!) Alk phos 181(!) ALT 30 AST 40 Comment: (Reviewed) By: Yulisa Joy MD Time: 10/03 0936 Comment: CXR consistent with parapneumonic effusion. Leukocytosis to 17. Will start vanc and cefepime, and obtain lateral decubitus x-rays to further evaluate effusion. Considering paracentesis. Planfor admission. By: Yulisa Joy MD Time: 10/03 0957 Value: Rhinovirus/Enterovirus RNA(!): Detected Comment: (Reviewed) By: Yulisa Joy MD Time: 10/03 1010 Value: Direct Specimen Exam(!): Stain: Abundant squamous epithelial cells seen indicating excessive oropharyngeal contamination. Culture will not be processed further. Please submit another specimen. Smear results called to and read back by: Yulisa Joy MD [phone] on 10/03/2023 10:10:17 by: Bahman Torres MT Comment: (Reviewed) By: Yulisa Joy MD Time: 10/03 1044 Value: Tacrolimus level random: Tacrolimus random 8.9 Comment: (Reviewed) By: Yulisa Joy MD Time: 10/03 1231 Comment: Thoracentesis performed and studies sent. About 500 cc fluid removed. Fluid removal limited by back cramping, but he reported breathing felt improved after procedure. X-ray obtained with no evidence of PTX. Now in MRI spine. By: Yulisa Joy MD Time: 10/03 0901 Comment: After MRI, noted to be tachycardic to 120s for prolonged period and satting 90% on 2L O2. By: Yulisa Joy MD Time: 10/03 7338 Comment: Spine MRI: IMPRESSION: 1. No evidence of discitis-osteomyelitis or spinal epidural abscess. 2. Incompletely imaged moderately sized loculated right pleural effusion. By: Yulisa Joy MD Time: 10/03 1700 Comment: Pt when sitting on side of bed to urinate developed some SOB sats in 80s and increased tachycardia up to 140, pt will need ICU level monitoring and care, will switch bed to ICU, pt currentlyon 5 lpm NC O2 to maintain sats >90%. By: Hans Najera Jr., MD Time: 10/03 1809 Comment: Continuing to have increased work of breathing. Tachycardic to 120s consistently and desatting to 80s with standing on 4-5L O2. Pending ICU bed. Will place on BiPAP for increased work of breathing. By: Yulisa Joy MD Time: 10/03 1825 Comment: Pt feels like he is tiring a bit and willing to try bipap. Pt reports he would only want to be intubated when absolutely needed. Patient would not want to live or stay on the ventilator long-term if he could not be taken off the ventilator. Mother was present for discussion and potential end of life wishes, pt remains full code at this time and wants everything done as long as he can recover with some quality of life, By: Hans Najera Jr., MD Time: 10/03 1929 Comment: Pt being moved By: Hans Najera Jr., MD Time: 10/03 1931 Comment: TRANSITION OF CARE: I have reviewed all pertinent vital signs, allergies, and history available in the chart. I, Ileana Clifton MD, am taking signout from Dr. Joy (Resident). Summary: 28 y.o. male h/o liver txp on tacro, had right NA with OP abx. Tachypneic here, tachycardic. CXR shows pleural effusion right, which was tapped in ED (effusion not empyema). Now on 4-5L (no baseline O2 req) desats to low 80s, now on bipap, here CTA: no PE no extrav MRI whole spine performed, no evidence of abscess. Signed out to ICU, pending bed. Getting lexis boothe Pending: N/A Dispo: admission to MICU, signed out By: Ileana Tucker MD Time: 10/03 1938 Value: Rhinovirus/Enterovirus RNA(!): Detected Comment: (Reviewed) By: Ileana Tucker MD Time: 10/03 1942 Comment: Nursing requests pt be moved to [facility] while awaiting ICU bed, pt on bipap feeling slightly better, Pt on broad spectrum abx for pneumonia, tachycardia and increased work of breathing since thoracentesis CT shows pleural effusion remains no PTX no bleeding, Care signed over to Dr. Nash By: Hans Najera Jr., MD Time: 10/03 1950 Comment: Pt with reassuring VBGs, and pulling good tidal volumes, but reports persistent work of breathing, plan for symptomatic management of back pain with flexeril and lidocaine patch. By: Ileana Tucker MD Time: 10/03 2023 Comment: Per chart review, pt receives IVIG monthly for hypogammaglobulinemia, will reach out to liver transplant team to see if this is necessary at this time. By: Ileana Tucker MD Time: 10/03 2105 Comment: Pt signed out by Dr. Najera. 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 S/p thoracentesis, with increased work of breathing. Now on bipap. Brought to [facility] for monitoring prior to ICU admission. By: Jez Nash MD Final diagnoses: Pneumonia of right lung due to infectious organism, unspecified part of lung Parapneumonic effusion Sepsis without acute organ dysfunction, due to unspecified organism (HCC) I have seen and examined the patient on 10/03/2023. I agree with the findings and plan of care as documented in the resident's note. Hans Najera Jr., MD 10/03/231944 Hans Najera Jr., MD 10/04/23 0083 EMATICIAN RESEARCH EMATICIAN RESEARCH * Significant Event - Boris Welsh MD - 10/03/2023 4:34 PM MATHEMATICIAN RESEARCH ED Hospitalist Event Note In my role as the ED hospitalist, I have seen and examined this patient and reviewed the chart. I have discussed this patient's care with the ED team. Beka Lares is a 28 y.o. 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 On the day his symptoms started he went to an OSH ED and was diagnosed with pneumonia, discharged with doxy and augmentin, which he states he has been taking. He endorses chills but denies fever, abd pain, n/v. He states today his back pain migrated to his left back, worse with movements. Of note,he was hospitalized 08/23 - 09/03 for transaminitis, E coli bacteremia (d/c'ed on cipro), and CMV vir emia. His ED work-up here was notable for WBC 17.1, T bili 5.4 (stable compared to prior T bili levels from August hospitalization), LDH 293, RVP + rhino/entero, and CXR with moderate right-sized pleural effusion with associated airspace opacity. A thoracentesis was performed in the ED which yielded approx 500cc jany-colored fluid. Patient notes he felt slightly better after that procedure. Post-thora CXR shows no pneumothorax. While in the ED he developed increasing oxygen requirements. Upon arrival he was tolerating room air but developed an oxygen requirement of 2L nasal cannula. His SpO2 was 90% with this requirement, so I increased his O2 to 3L/min. He was speaking full sentences but tachypneic. Heart rate tachycardic with regular rate. He has decreased breath sounds in the right posterior lower field of his lung. No edema in his lower extremities. Given his increasing O2 needs, a CT chest was obtained by the ED which shows a moderate partially loculated right pleural effusion with bilateral consolidations c/f organizing pneumonia superimposed by pulmonary edema and possibly infectious pneumonia. No pneumothorax or extravasation in seen on CT. I re-examined him after the CT, SpO2 was 91% on 3L. I increased his oxygen to 4L n/c, SpO2 incr to94%. He remains tachycardic and tachypneic, denies resp distress. With his increasing oxygen requirements, I expressed my concern with the ED providers about his decompensation and his appropriateness for the floor. ED providers are asking ICU for admission. I anticipate he may need a chest tube insertion for definitive management of this loculated effusion. Should he stabilize with improving oxygen requirements while in ED, please reach back out to [facility]TA for consideration for admission to floor. 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 agrees and accepts Patient's stated name/ matches armband: Yes Allergies confirmed: yes Consent form signed, dated, timed; matches correct patient, intended procedure and site: Yes Imaging: Pertinent imaging reviewed, correctly oriented and match to patient identifiers Lab/Diag test results: Pertinent lab/diag tests reviewed and match to patient identifiers Supplies, devices and special equipment are available: yes Site/side marked: yes Immediately prior to the procedure a time out was called: a verbal verification by the procedure participants confirmed correct patient identity, correct site/side marked and visible (if applicable);agreement on procedure to be done; and correct patient positioning Preparation: Patient was prepped and draped in usual sterile fashion Patient position: Sitting Location: R posterior Puncture method: [id number] catheter Ultrasound guidance: yes Ultrasound guidance used for: Pre-procedure marking Number of attempts: 2 Drainage characteristics: Serosanguinous Chest x-ray performed: yes Chest x-ray findings: Pleural effusion improved Patient tolerance of procedure: Tolerated well, no immediate complications Post Procedure Debrief: All guidewires, needles, sponges or other items are accounted for: yes Any special post procedure monitoring, testing or other considerations: n/a All specimens identified, labeled and matched to patient identification: yes Responsible libertarian for transporting specimen(s) to lab determined: yes Yulisa Joy MD Resident 10/03/23 1219 Cosigned by Joni Cintron MD at 10/03/2023 5:21 PM MATHEMATICIAN RESEARCH EMATICIAN RESEARCH EMATICIAN RESEARCH Associated attestation - Joni Cintron MD - 10/03/2023 5:21 PM MATHEMATICIAN RESEARCH Procedure Attestation: I was present and directly participated in the entire procedure. documented in this encounter Plan of Treatment Pending Results Name Type Priority Associated Diagnoses Date /Time Lactate dehydrogenase (LD) Lab STAT 10/03/2023 8:24 AM MATHEMATICIAN RESEARCH Glucose, body fluid Lab STAT 10/03 12:00 PM MATHEMATICIAN RESEARCH Triglycerides, body fluid Lab STAT 10/03/2023 12:00 PM MATHEMATICIAN RESEARCH Scheduled Orders Name Type Priority Associated Diagnoses Orde r Schedule Lactate dehydrogenase (LD) Lab STAT Once for 1 Occurrences starting 10/03/2023 until 10/03/2023 Glucose, body fluid Lab STAT Once for 1 Occurrences starting 10/03/2023 until 10/03/2023 Triglycerides, body fluid Lab STAT Once for 1 Occurrences starting 10/03/2023 until 10/03/2023 Scheduled Procedures Name Priority Associated Diagnoses Date/Ti me COLONOSCOPY Encounter for screening for colorectal cancer in high risk patient Family history of rectal cancer documented as of this encounter Procedures Procedure Name Priority Date/Time Associated Diagnosis Comments POTASSIUM, WHOLE BLOOD Routine 12:59 AM MATHEMATICIAN RESEARCH EGFR Routine 10/13/2023 12:59 AM MATHEMATICIAN RESEARCH CBC WITHOUT DIFFERENTIAL Routine 10/13/2023 12:59 AM MATHEMATICIAN RESEARCH PHOSPHORUS Routine 10/13/2023 12:59 AM MATHEMATICIAN RESEARCH MAGNESIUM Routine 10/13/2023 12:59 AM MATHEMATICIAN RESEARCH BASIC METABOLIC PANEL Routine 10/13/2023 12:59 AM MATHEMATICIAN RESEARCH PEP THERAPY Routine 10/12/2023 1:00 PM MATHEMATICIAN RESEARCH XR CHEST 1 VIEW IP Routine 10/12/2023 10:11 AM MATHEMATICIAN RESEARCH US VEIN DUPLEX LOWER EXTREMITY LEFT LIMITED IP Routine 10/12/2023 9:05 AM MATHEMATICIAN RESEARCH TACROLIMUS LEVEL, TROUGH Timed 10/12/2023 9:01 AM MATHEMATICIAN RESEARCH PEP THERAPY Routine 10/12/2023 8:00 AM MATHEMATICIAN RESEARCH POTASSIUM, WHOLE BLOOD Routine 3 1:25 AM MATHEMATICIAN RESEARCH EGFR Routine 10/12/2023 1:25 AM MATHEMATICIAN RESEARCH CBC WITHOUT DIFFERENTIAL Routine 10/12/2023 1:25 AM MATHEMATICIAN RESEARCH PHOSPHORUS Routine 10/12/2023 1:25 AM MATHEMATICIAN RESEARCH MAGNESIUM Routine 10/12/2023 1:25 AM MATHEMATICIAN RESEARCH BASIC METABOLIC PANEL Routine 10/12/2023 1:25 AM MATHEMATICIAN RESEARCH PEP THERAPY Routine 10/11/2023 6:00 PM MATHEMATICIAN RESEARCH PEP THERAPY Routine 10/11/2023 1:00 PM MATHEMATICIAN RESEARCH PEP THERAPY Routine 10/11/2023 8:00 AM MATHEMATICIAN RESEARCH XR CHEST 1 VIEW IP Routine 10/11/2023 6:21 AM MATHEMATICIAN RESEARCH POTASSIUM, WHOLE BLOOD Routine 3 2:59 AM MATHEMATICIAN RESEARCH EGFR Routine 10/11/2023 2:59 AM MATHEMATICIAN RESEARCH CBC WITHOUT DIFFERENTIAL Routine 10/11/2023 2:59 AM MATHEMATICIAN RESEARCH PHOSPHORUS Routine 10/11/2023 2:59 AM MATHEMATICIAN RESEARCH MAGNESIUM Routine 10/11/2023 2:59 AM MATHEMATICIAN RESEARCH BASIC METABOLIC PANEL Routine 10/11/2023 2:59 AM MATHEMATICIAN RESEARCH PEP THERAPY Routine 10/10/2023 6:00 PM MATHEMATICIAN RESEARCH PEP THERAPY Routine 10/10/2023 1:00 PM MATHEMATICIAN RESEARCH TACROLIMUS LEVEL, TROUGH Timed 10/10/2023 8:37 AM MATHEMATICIAN RESEARCH PEP THERAPY Routine 10/10/2023 8:00 AM MATHEMATICIAN RESEARCH XR CHEST 1 VIEW IP Routine 10/10/2023 6:35 AM MATHEMATICIAN RESEARCH POTASSIUM, WHOLE BLOOD Routine 3:46 AM MATHEMATICIAN RESEARCH EGFR Routine 10/10/2023 3:46 AM MATHEMATICIAN RESEARCH CBC WITHOUT DIFFERENTIAL Routine 10/10/2023 3:46 AM MATHEMATICIAN RESEARCH PHOSPHORUS Routine 10/10/2023 3:46 AM MATHEMATICIAN RESEARCH MAGNESIUM Routine 10/10/2023 3:46 AM MATHEMATICIAN RESEARCH BASIC METABOLIC PANEL Routine 10/10/2023 3:46 AM MATHEMATICIAN RESEARCH PEP THERAPY Routine 10/09/2023 6:00 PM MATHEMATICIAN RESEARCH PEP THERAPY Routine 10/09/2023 1:00 PM MATHEMATICIAN RESEARCH PEP THERAPY Routine 10/09/2023 8:00 AM MATHEMATICIAN RESEARCH POTASSIUM, WHOLE BLOOD Routine 3 4:47 AM MATHEMATICIAN RESEARCH EGFR Routine 10/09/2023 4:47 AM MATHEMATICIAN RESEARCH CBC WITHOUT DIFFERENTIAL Routine 10/09/2023 4:47 AM MATHEMATICIAN RESEARCH PHOSPHORUS Routine 10/09/2023 4:47 AM MATHEMATICIAN RESEARCH MAGNESIUM Routine 10/09/2023 4:47 AM MATHEMATICIAN RESEARCH BASIC METABOLIC PANEL Routine 10/09/2023 4:47 AM MATHEMATICIAN RESEARCH XR CHEST 1 VIEW IP Routine 10/09/2023 3:07 AM MATHEMATICIAN RESEARCH EGFR Timed 10/08/2023 8:28 PM MATHEMATICIAN RESEARCH BASIC METABOLIC PANEL Timed 10/08/2023 8:28 PM MATHEMATICIAN RESEARCH PEP THERAPY Routine 10/08/2023 6:00 PM MATHEMATICIAN RESEARCH MYCOLOGY (FUNGAL) CULTURE AND STAIN Routine 10/08/2023 1:16 PM MATHEMATICIAN RESEARCH PEP THERAPY Routine 10/08/2023 1:00 PM MATHEMATICIAN RESEARCH PEP THERAPY Routine 10/08/2023 8:00 AM MATHEMATICIAN RESEARCH POTASSIUM, WHOLE BLOOD STAT 7:49 AM MATHEMATICIAN RESEARCH TACROLIMUS LEVEL, TROUGH Timed 10/08/2023 7:49 AM MATHEMATICIAN RESEARCH POTASSIUM, WHOLE BLOOD Routine 3 5:44 AM MATHEMATICIAN RESEARCH EGFR Routine 10/08/2023 5:44 AM MATHEMATICIAN RESEARCH CBC WITHOUT DIFFERENTIAL Routine 10/08/2023 5:44 AM MATHEMATICIAN RESEARCH PHOSPHORUS Routine 10/08/2023 5:44 AM MATHEMATICIAN RESEARCH MAGNESIUM Routine 10/08/2023 5:44 AM MATHEMATICIAN RESEARCH BASIC METABOLIC PANEL Routine 10/08/2023 5:44 AM MATHEMATICIAN RESEARCH XR CHEST 1 VIEW IP Routine 10/08/2023 2:07 AM MATHEMATICIAN RESEARCH PEP THERAPY Routine 10/07/2023 10:20 PM MATHEMATICIAN RESEARCH PEP THERAPY Routine 10/07/2023 10:20 PM MATHEMATICIAN RESEARCH MOLD BLOOD CULTURE Routine 10/07/2023 9: 11 PM MATHEMATICIAN RESEARCH ASPERGILLUS GALACTOMANNAN ANTIGEN Routine 10/07/2023 8:01 PM MATHEMATICIAN RESEARCH POTASSIUM, WHOLE BLOOD STAT 8:24 AM MATHEMATICIAN RESEARCH EGFR Routine 10/07/2023 4:43 AM MATHEMATICIAN RESEARCH CBC WITHOUT DIFFERENTIAL Routine 10/07/2023 4:43 AM MATHEMATICIAN RESEARCH PHOSPHORUS Routine 10/07/2023 4:43 AM MATHEMATICIAN RESEARCH MAGNESIUM Routine 10/07/2023 4:43 AM MATHEMATICIAN RESEARCH BASIC METABOLIC PANEL Routine 10/07/2023 4:43 AM MATHEMATICIAN RESEARCH XR CHEST 1 VIEW IP Routine 10/07/2023 1:37 AM MATHEMATICIAN RESEARCH TACROLIMUS LEVEL, TROUGH Routine 10/06/2023 9:06 AM MATHEMATICIAN RESEARCH EGFR Routine 10/06/2023 5:03 AM MATHEMATICIAN RESEARCH CBC WITHOUT DIFFERENTIAL Routine 10/06/2023 5:03 AM MATHEMATICIAN RESEARCH PHOSPHORUS Routine 10/06/2023 5:03 AM MATHEMATICIAN RESEARCH MAGNESIUM Routine 10/06/2023 5:03 AM MATHEMATICIAN RESEARCH BASIC METABOLIC PANEL Routine 10/06/2023 5:03 AM MATHEMATICIAN RESEARCH XR CHEST 1 VIEW IP Routine 10/06/2023 2:29 AM MATHEMATICIAN RESEARCH XR CHEST 1 VIEW ED Urgent/IP Urgent 10/05/2023 12:34 PM MATHEMATICIAN RESEARCH POTASSIUM, WHOLE BLOOD Timed 9:23 AM MATHEMATICIAN RESEARCH EGFR Routine 10/05/2023 4:35 AM MATHEMATICIAN RESEARCH TACROLIMUS LEVEL, TROUGH Routine 10/05/2023 4:35 AM MATHEMATICIAN RESEARCH CBC WITHOUT DIFFERENTIAL Routine 10/05/2023 4:35 AM MATHEMATICIAN RESEARCH PHOSPHORUS Routine 10/05/2023 4:35 AM MATHEMATICIAN RESEARCH MAGNESIUM Routine 10/05/2023 4:35 AM MATHEMATICIAN RESEARCH BASIC METABOLIC PANEL Routine 10/05/2023 4:35 AM MATHEMATICIAN RESEARCH HISTOPLASMA ANTIGEN STAT 10/04/2023 4 :46 PM MATHEMATICIAN RESEARCH CHEST TUBE INSERTION Routine 10/04/2023 3:12 PM MATHEMATICIAN RESEARCH Parapneumonic effusion EGFR Timed 10/04/2023 2:47 PM MATHEMATICIAN RESEARCH BASIC METABOLIC PANEL Timed 10/04/2023 2:47 PM MATHEMATICIAN RESEARCH XR CHEST 1 VIEW ED Urgent/IP Urgent 10/04/2023 2:11 PM MATHEMATICIAN RESEARCH FLOW LEUKEMIA/LYMPHOMA Timed 1:31 PM MATHEMATICIAN RESEARCH CYTOLOGY Routine 10/04/2023 1:24 PM MATHEMATICIAN RESEARCH FLOW LEUKEMIA/LYMPHOMA Timed 12:46 PM MATHEMATICIAN RESEARCH MICROBIOLOGY COURTESY CALLBACK STAT 10/04/2023 11:58 AM MATHEMATICIAN RESEARCH COCCIDIOIDES ANTIBODY SCREEN W/REFLEX STAT 10/04/2023 11:58 AM MATHEMATICIAN RESEARCH HISTOPLASMA ANTIBODY STAT 10/04/2023 11:58 AM MATHEMATICIAN RESEARCH BLASTOMYCES ANTIBODY, EIA, S STAT 10/04/2023 11:58 AM MATHEMATICIAN RESEARCH CRYPTOCOCCAL ANTIGEN, SERUM STAT 10/04/2023 11:58 AM MATHEMATICIAN RESEARCH ASPERGILLUS GALACTOMANNAN ANTIGEN STAT 10/04/2023 11:58 AM MATHEMATICIAN RESEARCH CYTOMEGALOVIRUS (CMV) DNA, QUANT GEN LAB Routine 10/04/2023 6:21 AM MATHEMATICIAN RESEARCH EGFR Routine 10/04/2023 6:21 AM MATHEMATICIAN RESEARCH DIFFERENTIAL AUTO Routine 10/04/2023 6:2 1 AM MATHEMATICIAN RESEARCH TACROLIMUS LEVEL, TROUGH Routine 10/04/2023 6:21 AM MATHEMATICIAN RESEARCH CBC WITH AUTO DIFFERENTIAL Routine 10/04/2023 6:21 AM MATHEMATICIAN RESEARCH PHOSPHORUS Routine 10/04/2023 6:21 AM MATHEMATICIAN RESEARCH MAGNESIUM Routine 10/04/2023 6:21 AM MATHEMATICIAN RESEARCH BASIC METABOLIC PANEL Routine 10/04/2023 6:21 AM MATHEMATICIAN RESEARCH SURGICAL PATHOLOGY Routine 10/04/2023 12 :00 AM MATHEMATICIAN RESEARCH POCT GLUCOSE DEVICE Routine 10/03/2023 1 0:12 PM MATHEMATICIAN RESEARCH LACTATE STAT 10/03/2023 10:06 PM MATHEMATICIAN RESEARCH EGFR STAT 10/03/2023 10:06 PM MATHEMATICIAN RESEARCH CBC WITH AUTO DIFFERENTIAL STAT 10/03/2023 10:06 PM MATHEMATICIAN RESEARCH MANUAL DIFFERENTIAL STAT 10/03/2023 1 0:06 PM MATHEMATICIAN RESEARCH INFECTION PREVENTION MRSA ONLY (STAPHYLOCOCCUS AUREUS) CULTURE Routine 10/03/2023 10:06 PM MATHEMATICIAN RESEARCH PHOSPHORUS STAT 10/03/2023 10:06 PM MATHEMATICIAN RESEARCH MAGNESIUM STAT 10/03/2023 10:06 PM MATHEMATICIAN RESEARCH COMPREHENSIVE METABOLIC PANEL STAT 10/03/2023 10:06 PM MATHEMATICIAN RESEARCH ECG 12-LEAD STAT 10/03/2023 9:46 PM MATHEMATICIAN RESEARCH ECG 12-LEAD Routine 10/03/2023 9:42 PM MATHEMATICIAN RESEARCH CA CRITICAL CARE ILL/INJURED PATIENT INIT 30-74 MIN Routine 10/03/2023 7:45 PM MATHEMATICIAN RESEARCH BLOOD GAS, VENOUS STAT 10/03/2023 5:5 8 PM MATHEMATICIAN RESEARCH URINALYSIS AND REFLEX TO MICROSCOPIC AND CULTURE Routine 10/03/2023 5:[address] CHEST W WO CONTRAST ED 3:55 PM MATHEMATICIAN RESEARCH XR CHEST 1 VIEW ED 10/03/2023 2:33 PM MATHEMATICIAN RESEARCH MRI SPINE TOTAL COMPLETE W WO CONTRAST ED 10/03/2023 1:59 PM MATHEMATICIAN RESEARCH XR CHEST 1 VIEW ED 10/03/2023 12:22 PM MATHEMATICIAN RESEARCH CA THORACENTESIS NEEDLE/CATH PLEURA W/IMAGING Routine 10/03/2023 12:18 PM MATHEMATICIAN RESEARCH CELL DIFFERENTIAL, BODY FLUID STAT 10/03/2023 12:00 PM MATHEMATICIAN RESEARCH CELL COUNT W/REFLEX DIFFERENTIAL, BODY FLUID STAT 10/03/2023 12:00 PM MATHEMATICIAN RESEARCH AEROBIC AND ANAEROBIC CULTURE AND GRAM STAIN STAT 10/03/2023 12:00 PM MATHEMATICIAN RESEARCH TRIGLYCERIDES, BODY FLUID STAT 10/03/2023 12:00 PM MATHEMATICIAN RESEARCH PROTEIN, BODY FLUID Routine 10/03/2023 1 2:00 PM MATHEMATICIAN RESEARCH LACTATE DEHYDROGENASE, BODY FLUID STAT 10/03/2023 12:00 PM MATHEMATICIAN RESEARCH GLUCOSE, BODY FLUID STAT 10/03/2023 1 2:00 PM MATHEMATICIAN RESEARCH SURGICAL PATHOLOGY Routine 10/03/2023 12 :00 PM MATHEMATICIAN RESEARCH XR CHEST LATERAL DECUBITUS LEFT ED 10/03/2023 10:12 AM MATHEMATICIAN RESEARCH XR CHEST LATERAL DECUBITUS RIGHT ED 10/03/2023 10:11 AM MATHEMATICIAN RESEARCH PNEUMONIA PCR WITH AEROBIC CULTURE AND GRAM STAIN Routine 10/03/2023 9:33 AM MATHEMATICIAN RESEARCH PROTIME-INR STAT 10/03/2023 9:33 AM MATHEMATICIAN RESEARCH POCT LACTATE - DEVICE Routine 10/03/2023 9:26 AM MATHEMATICIAN RESEARCH BLOOD CULTURE STAT 10/03/2023 9:19 AM MATHEMATICIAN RESEARCH BLOOD CULTURE STAT 10/03/2023 9:19 AM MATHEMATICIAN RESEARCH XR CHEST PA LATERAL 2 VIEWS ED 10/03/2023 8:54 AM MATHEMATICIAN RESEARCH TACROLIMUS LEVEL, RANDOM Timed 10/03/2023 8:27 AM MATHEMATICIAN RESEARCH EGFR STAT 10/03/2023 8:24 AM MATHEMATICIAN RESEARCH DIFFERENTIAL AUTO STAT 10/03/2023 8:2 4 AM MATHEMATICIAN RESEARCH RESPIRATORY PATHOGEN PANEL Routine 10/03/2023 8:24 AM MATHEMATICIAN RESEARCH CBC WITH AUTO DIFFERENTIAL STAT 10/03/2023 8:24 AM MATHEMATICIAN RESEARCH LACTATE DEHYDROGENASE STAT 10/03/2023 8:24 AM MATHEMATICIAN RESEARCH BILIRUBIN, DIRECT STAT 10/03/2023 8:2 4 AM MATHEMATICIAN RESEARCH COMPREHENSIVE METABOLIC PANEL STAT 10/03/2023 8:24 AM MATHEMATICIAN RESEARCH documented in this encounter Results * eGFR (10/13/2023 12:59 AM MATHEMATICIAN RESEARCH) Pathologist [facility] eGFR >90 >=60 mL/min/1. 73 m2 [facility] Comment: Interpretive Data Reference Interval Normal ?>/= [...] interpretive data was last reviewed 2021. Blood 10/13/2023 12:5 9 AM MATHEMATICIAN RESEARCH 10/13/2023 1:13 AM MATHEMATICIAN RESEARCH us Lisandra Harper MD LAB BLOOD ORDERABLES Final Result [facility] Department [place] [address] * Potassium, whole blood (10/13/2023 12:59 AM MATHEMATICIAN RESEARCH) Potassium, bld 4.7 3.3 - 4.9 mmol/L [facility] Blood 10/13/2023 12:5 9 AM MATHEMATICIAN RESEARCH 10/13/2023 1:10 AM MATHEMATICIAN RESEARCH us Lisandra Harper MD LAB BLOOD ORDERABLES Final Result [facility] Department [place] [address] * (ABNORMAL) CBC without differential (10/13/2023 12:59 AM MATHEMATICIAN RESEARCH) [facility] WBC 7.5 3.8 - 9.9 K/cumm [facility] Hgb 10.6(L) 13.0 - 17.5 g/dL [facility] Comment: Interpretive Data A reference range for this assay has not been established for patients with an unknown legal sex. Please refer to the laboratory test catalog for established sex-specific reference intervals. Current interpretive data was last revised on 2023. Hct 28.8(L) 38.9 - 50.3 % [facility] Comment: Interpretive Data A reference range for this assay has not been established for patients with an unknown legal sex. Please refer to the laboratory test catalog for established sex-specific reference intervals. Current interpretive data was last revised on 2023. Plt 214 150 - 400 K/cumm [facility] MPV 11.3 9.1 - 12.3 fL [facility] RBC 2.70(L) 4.30 - 5.80 M/cumm [facility] Comment: Interpretive Data A reference range for this assay has not been established for patients with an unknown legal sex. Please refer to the laboratory test catalog for established sex-specific reference intervals. Current interpretive data was last revised on 2023. MCV 106.7(H) 81.3 - 96.4 fL [facility] MCH 39.3(H) 27.1 - 33.3 pg [facility] MCHC 36.8(H) 32.3 - 35.7 g/dL [facility] RDW CV 17.9(H) 11.1 - 14.9 % [facility] RDW SD 69.8(H) 35.7 - 48.1 fL [facility] NRBC abs 0.00 0.00 - 0.01 K/cumm [facility] Blood 10/13/2023 12:5 9 AM MATHEMATICIAN RESEARCH 10/13/2023 1:13 AM MATHEMATICIAN RESEARCH Lisandra Harper MD LAB BLOOD ORDERABLES Final Result [facility] Department [place] [address] * (ABNORMAL) Basic metabolic panel (10/13/2023 12:59 AM MATHEMATICIAN RESEARCH) Pathologist [facility] Sodium 139 135 - 145 mmol/L [facility] Potassium, pl 4.8 3.3 - 4.9 mmol/L [facility] Chloride 112(H) 97 - 110 mmol/L [facility] CO2 21(L) 22 - 32 mmol/L [facility] Anion gap 6 2 - 15 mmol/L [facility] BUN 26(H) 6 - 25 mg/dL [facility] Creatinine 0.78(L) 0.80 - 1.30 mg/dL [facility] Glucose 98 70 - 199 mg/dL [facility] Comment: Interpretive Data Fasting glucose >/= [...] interpretive data was last revised 2022. Calcium 7.9(L) 8.5 - 10.3 mg/dL [facility] Blood 10/13/2023 12:5 9 AM MATHEMATICIAN RESEARCH 10/13/2023 1:13 AM MATHEMATICIAN RESEARCH us Lisandra Harper MD LAB BLOOD ORDERABLES Final Result Performing Organization Address [facility] [place] [address] * Magnesium (10/13/2023 12:59 AM MATHEMATICIAN RESEARCH) Magnesium 1.7 1.4 - 2.5 mg/dL [facility] Blood 10/13/2023 12:5 9 AM MATHEMATICIAN RESEARCH 10/13/2023 1:13 AM MATHEMATICIAN RESEARCH Lisandra Harper MD LAB BLOOD ORDERABLES Final Result Performing Organization Address [facility] [place] [address] * Phosphorus (10/13/2023 12:59 AM MATHEMATICIAN RESEARCH) Phosphorus, pl 3.3 2.3 - 4.5 mg/dL [facility] Blood 10/13/2023 12:5 9 AM MATHEMATICIAN RESEARCH 10/13/2023 1:13 AM MATHEMATICIAN RESEARCH Lisandra Harper MD LAB BLOOD ORDERABLES Final Result Performing Organization Address [facility] [place] [address] * XR Chest 1 View (10/12/2023 10:11 AM MATHEMATICIAN RESEARCH) Anatomical Region Laterality Modality Body, Chest N/A Computed Radiogr aphy 10/12/2023 10:5 0 AM MATHEMATICIAN RESEARCH Impressions 10/12/2023 10:50 AM MATHEMATICIAN RESEARCH Comparison is made to prior study of 10/11/2023 at 5:54 AM. In the interval, no change in moderate cardiomegaly. A small left pleural effusion is seen with bibasilar atelectasis but there is no pulmonary edema or pneumonia. Previously noted thoracostomy tube has been removed. There is no pneumothorax. 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 Electronically signed by: Vik Moreira M.D. Narrative 10/12/2023 10:50 AM MATHEMATICIAN RESEARCH EXAMINATION: 1 view chest radiograph Procedure Note Vik Moreira MD - 10/12/2023 EXAMINATION: 1 view chest radiograph IMPRESSION: Comparison is made to prior study of 10/11/2023 at 5:54 AM. In the interval, no change in moderate cardiomegaly. A small left pleural effusion is seen with bibasilar atelectasis but there is no pulmonary edema or pneumonia. Previously noted thoracostomy tube has been removed. There is no pneumothorax. 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 Electronically signed by: Vik Moreira M.D. us Anita Gillespie MD IMG XR PROCEDURES Final Re sult * US VEIN DUPLEX LOWER EXTREMITY LEFT LIMITED, UNILATERAL (10/12/2023 9:05 AM MATHEMATICIAN RESEARCH) Anatomical Region Laterality Modality Vascular Left Ultrasound 10/12/2023 8:36 AM MATHEMATICIAN RESEARCH Narrative 10/12/2023 12:12 PM MATHEMATICIAN RESEARCH [facility] [employer] [facility] - Department of Vascular Surgery, Vascular Laboratory [address] [place] [address] Lower Extremity Venous Ultrasound Report Patient Name: BEKA LARES J : 1995 (28y 8m) Study Date: 10/12/2023 8:36:20 AM Gender: M Tech: Location: [id number] Ref Provider: CHELSI WEINBERG ?Quality: Adequate Order Provider: CHELSI WEINBERG PROCEDURES: Vascular Report: Venous Duplex imaging was performed in the left lower extremity. The common femoral, femoral, popliteal, posterior tibial, peroneal veins were evaluated for patency, spontaneity and phasicity with Doppler, compression and augmentation maneuvers. Great saphenous vein proximal at the junction was evaluated with compression maneuvers. INDICATIONS: Localized edema, and Swelling lower extremity, left. FINDINGS: Performing Online Marketing Manager: Leeanna Muniz RVT. Left: Venous Doppler signals [...] above. Electronically Signed By: Jabari Mota MD [facility] 2023-10-12 12:11:57 MATHEMATICIAN RESEARCH Procedure Note Jabari Mota MD - 10/12/2023 [facility] - Department of Vascular Surgery,Vascular Laboratory [address] [place] [address] Lower Extremity Venous Ultrasound Report Patient Name: BEKA LARES J : 1995 (28y 8m) Study Date: 10/12/2023 8:36:20 AM Gender: M Tech: Location: [id number] Ref Provider: CHELSI WEINBERG Quality: Adequate Order Provider: CHELSI WEINBERG PROCEDURES: Vascular Report: Venous Duplex imaging was performed in the left lower extremity. Thecommon femoral, femoral, popliteal, posterior tibial, peroneal veins were evaluated forpatency, spontaneity and phasicity with Doppler, compression and augmentationmaneuvers. Great saphenous vein proximal at the junction was evaluated with compressionmaneuvers. INDICATIONS: Localized edema, and Swelling lower extremity, left. FINDINGS: Performing Online Marketing Manager: Leeanna Muniz RVT. Left: Venous Doppler signals [...] above. Electronically Signed By: Jabari Mota MD [facility] 2023-10-12 12:11:57 MATHEMATICIAN RESEARCH us Chelsi Weinberg MD [facility] PROCEDURES Final Result * Tacrolimus level trough (10/12/2023 9:01 AM MATHEMATICIAN RESEARCH) Pathologist [facility] Tacrolimus trough 9.3 ng/mL [facility] Comment: Interpretive Data Testing performed by liquid chromatography-tandem mass spectrometry. ??Therapeutic concentrations vary depending on type of transplanted organ and time elapsed since transplant. ??Typical trough concentrations range from 5-15 ng/mL. ??This test was developed and its performance characteristics determined by the [facility] consistent with CLIA requirements. ??This test has not been cleared or approved by the [place] Food and Drug administration. ??Current interpretive data last reviewed 2020. Blood 10/12/2023 9:01 AM MATHEMATICIAN RESEARCH 10/12/2023 9:12 AM MATHEMATICIAN RESEARCH us Lisandra Harper MD LAB BLOOD ORDERABLES Final Result [facility] Department [place] [address] * eGFR (10/12/2023 1:25 AM MATHEMATICIAN RESEARCH) Pathologist [facility] eGFR >90 >=60 mL/min/1. 73 m2 [facility] Comment: Interpretive Data Reference Interval Normal ?>/= [...] interpretive data was last reviewed 2021. Blood 10/12/2023 1:25 AM MATHEMATICIAN RESEARCH 10/12/2023 1:47 AM MATHEMATICIAN RESEARCH Lisandra Harper MD LAB BLOOD ORDERABLES Final Result [facility] Department [place] [address] * Potassium, whole blood (10/12/2023 1:25 AM MATHEMATICIAN RESEARCH) [facility] Potassium, bld 4.3 3.3 - 4.9 mmol/L [facility] Blood 10/12/2023 1:25 AM MATHEMATICIAN RESEARCH 10/12/2023 1:39 AM MATHEMATICIAN RESEARCH Lisandra Harper MD LAB BLOOD ORDERABLES Final Result [facility] Department [place] [address] * (ABNORMAL) CBC without differential (10/12/2023 1:25 AM MATHEMATICIAN RESEARCH) [facility] WBC 6.7 3.8 - 9.9 K/cumm [facility] Hgb 9.8(L) 13.0 - 17.5 g/dL [facility] Comment: Interpretive Data A reference range for this assay has not been established for patients with an unknown legal sex. Please refer to the laboratory test catalog for established sex-specific reference intervals. Current interpretive data was last revised on 2023. Hct 26.1(L) 38.9 - 50.3 % [facility] Comment: Interpretive Data A reference range for this assay has not been established for patients with an unknown legal sex. Please refer to the laboratory test catalog for established sex-specific reference intervals. Current interpretive data was last revised on 2023. Plt 209 150 - 400 K/cumm [facility] MPV 11.4 9.1 - 12.3 fL [facility] RBC 2.54(L) 4.30 - 5.80 M/cumm [facility] Comment: Interpretive Data A reference range for this assay has not been established for patients with an unknown legal sex. Please refer to the laboratory test catalog for established sex-specific reference intervals. Current interpretive data was last revised on 2023. MCV 102.8(H) 81.3 - 96.4 fL [facility] MCH 38.6(H) 27.1 - 33.3 pg [facility] MCHC 37.5(H) 32.3 - 35.7 g/dL [facility] RDW CV 17.8(H) 11.1 - 14.9 % [facility] RDW SD 66.4(H) 35.7 - 48.1 fL [facility] NRBC abs 0.00 0.00 - 0.01 K/cumm [facility] Blood 10/12/2023 1:25 AM MATHEMATICIAN RESEARCH 10/12/2023 1:48 AM MATHEMATICIAN RESEARCH us Lisandra Harper MD LAB BLOOD ORDERABLES Final Result [facility] Department [place] [address] * (ABNORMAL) Basic metabolic panel (10/12/2023 1:25 AM MATHEMATICIAN RESEARCH) [facility] Sodium 138 135 - 145 mmol/L [facility] Potassium, pl 4.5 3.3 - 4.9 mmol/L [facility] Chloride 111(H) 97 - 110 mmol/L [facility] CO2 21(L) 22 - 32 mmol/L [facility] Anion gap 6 2 - 15 mmol/L [facility] BUN 30(H) 6 - 25 mg/dL [facility] Creatinine 0.88 0.80 - 1.30 mg/dL [facility] Glucose 114 70 - 199 mg/dL [facility] Comment: Interpretive Data Fasting glucose >/= [...] 2022. Calcium 7.7(L) 8.5 - 10.3 mg/dL [facility] Blood 10/12/2023 1:25 AM MATHEMATICIAN RESEARCH 10/12/2023 1:47 AM MATHEMATICIAN RESEARCH us Lisandra Harper MD LAB BLOOD ORDERABLES Final Result Performing Organization Address [facility]/ZIP Co de Phone Number [facility] Department [place] [address] * Magnesium (10/12/2023 1:25 AM MATHEMATICIAN RESEARCH) Magnesium 1.6 1.4 - 2.5 mg/dL [facility] Blood 10/12/2023 1:25 AM MATHEMATICIAN RESEARCH 10/12/2023 1:47 AM MATHEMATICIAN RESEARCH Lisandra Harper MD LAB BLOOD ORDERABLES Final Result [facility] Department [place] [address] * Phosphorus (10/12/2023 1:25 AM MATHEMATICIAN RESEARCH) Phosphorus, pl 2.8 2.3 - 4.5 mg/dL [facility] Blood 10/12/2023 1:25 AM MATHEMATICIAN RESEARCH 10/12/2023 1:47 AM MATHEMATICIAN RESEARCH Lisandra Harper MD LAB BLOOD ORDERABLES Final Result Performing Organization Address [facility] de Phone Number [facility] Department [place] [address] * XR Chest 1 View (10/11/2023 6:21 AM MATHEMATICIAN RESEARCH) Anatomical Region Laterality Modality Body, Chest N/A Computed Radiogr aphy 10/11/2023 7:49 AM MATHEMATICIAN RESEARCH Impressions 10/11/2023 7:49 AM MATHEMATICIAN RESEARCH impression: Noted again is a right thoracostomy tube in place. There is no pneumothorax. Some atelectatic changes are again seen at the right lung base. There is a [id number] size left pleural effusion with associated collapse or consolidation in the left lower lobe 4 there are several air bronchograms. Mild cardiomegaly. Multiple abdominal clips are again seen in the abdomen, right greater than left. Electronically signed by: Asa Mcmullen M.D. Narrative 10/11/2023 7:49 AM MATHEMATICIAN RESEARCH Examination: Chest 1 view Procedure Note Asa Mcmullen MD - 10/11/2023 Examination: Chest 1 view IMPRESSION: impression: Noted again is a right thoracostomy tube in place. There is no pneumothorax. Some atelectatic changes are again seen at the right lung base. There is a wtzvd-yh-kdsfiydu size left pleural effusion with associated collapse or consolidation in the left lower lobe 4 there are several air bronchograms. Mild cardiomegaly. Multiple abdominal clips are again seen in the abdomen, right greater than left. Electronically signed by: Asa Mcmullen M.D. us Anita Gillespie MD IMG XR PROCEDURES Final Re sult * eGFR (10/11/2023 2:59 AM MATHEMATICIAN RESEARCH) eGFR >90 >=60 mL/min/1. 73 m2 [facility] Comment: Interpretive Data Reference Interval Normal ?>/= [...] interpretive data was last reviewed 2021. Blood 10/11/2023 2:59 AM MATHEMATICIAN RESEARCH 10/11/2023 3:10 AM MATHEMATICIAN RESEARCH Lisandra Harper MD LAB BLOOD ORDERABLES Final Result [facility] [place] [address] * Potassium, whole blood (10/11/2023 2:59 AM MATHEMATICIAN RESEARCH) Pathologist [facility] Potassium, bld 4.5 3.3 - 4.9 mmol/L [facility] Blood 10/11/2023 2:59 AM MATHEMATICIAN RESEARCH 10/11/2023 3:08 AM MATHEMATICIAN RESEARCH Lisandra Harper MD LAB BLOOD ORDERABLES Final Result Performing Organization Address [facility] de Phone Number [facility] [place] [address] * (ABNORMAL) CBC without differential (10/11/2023 2:59 AM MATHEMATICIAN RESEARCH) [facility] WBC 6.3 3.8 - 9.9 K/cumm [facility] Hgb 10.3(L) 13.0 - 17.5 g/dL [facility] Comment: Interpretive Data A reference range for this assay has not been established for patients with an unknown legal sex. Please refer to the laboratory test catalog for established sex-specific reference intervals. Current interpretive data was last revised on 2023. Hct 28.0(L) 38.9 - 50.3 % [facility] Comment: Interpretive Data A reference range for this assay has not been established for patients with an unknown legal sex. Please refer to the laboratory test catalog for established sex-specific reference intervals. Current interpretive data was last revised on 2023. Plt 220 150 - 400 K/cumm [facility] MPV 11.0 9.1 - 12.3 fL [facility] RBC 2.70(L) 4.30 - 5.80 M/cumm [facility] Comment: Interpretive Data A reference range for this assay has not been established for patients with an unknown legal sex. Please refer to the laboratory test catalog for established sex-specific reference intervals. Current interpretive data was last revised on 2023. MCV 103.7(H) 81.3 - 96.4 fL [facility] MCH 38.1(H) 27.1 - 33.3 pg [facility] MCHC 36.8(H) 32.3 - 35.7 g/dL [facility] RDW CV 17.3(H) 11.1 - 14.9 % [facility] RDW SD 65.5(H) 35.7 - 48.1 fL [facility] NRBC abs 0.00 0.00 - 0.01 K/cumm [facility] Blood 10/11/2023 2:59 AM MATHEMATICIAN RESEARCH 10/11/2023 3:10 AM MATHEMATICIAN RESEARCH us Lisandra Harper MD LAB BLOOD ORDERABLES Final Result [facility] Department [place] [id number] * (ABNORMAL) Basic metabolic panel (10/11/2023 2:59 AM MATHEMATICIAN RESEARCH) Sodium 137 135 - 145 mmol/L [facility] Potassium, pl 4.8 3.3 - 4.9 mmol/L [facility] Chloride 110 97 - 110 mmol/L [facility] CO2 18(L) 22 - 32 mmol/L [facility] Anion gap 9 2 - 15 mmol/L [facility] BUN 35(H) 6 - 25 mg/dL [facility] Creatinine 0.84 0.80 - 1.30 mg/dL [facility] Glucose 119 70 - 199 mg/dL [facility] Comment: Interpretive Data Fasting glucose >/= [...] 2022. Calcium 7.8(L) 8.5 - 10.3 mg/dL [facility] Blood 10/11/2023 2:59 AM MATHEMATICIAN RESEARCH 10/11/2023 3:10 AM MATHEMATICIAN RESEARCH Lisandra Harper MD LAB BLOOD ORDERABLES Final Result [facility] [place] [address] * Magnesium (10/11/2023 2:59 AM MATHEMATICIAN RESEARCH) Magnesium 1.8 1.4 - 2.5 mg/dL [facility] Blood 10/11/2023 2:59 AM MATHEMATICIAN RESEARCH 10/11/2023 3:10 AM MATHEMATICIAN RESEARCH Lisandra Harper MD LAB BLOOD ORDERABLES Final Result Performing Organization Address City/[facility] Co de Phone Number [facility] [place] [address] * Phosphorus (10/11/2023 2:59 AM MATHEMATICIAN RESEARCH) Phosphorus, pl 3.5 2.3 - 4.5 mg/dL [facility] Blood 10/11/2023 2:59 AM MATHEMATICIAN RESEARCH 10/11/2023 3:10 AM MATHEMATICIAN RESEARCH Lisandra Harper MD LAB BLOOD ORDERABLES Final Result Performing Organization Address City/[facility] Co de Phone Number [facility] [place] [address] * Tacrolimus level trough (10/10/2023 8:37 AM MATHEMATICIAN RESEARCH) Tacrolimus trough 8.4 ng/mL [facility] Comment: Interpretive Data Testing performed by liquid chromatography-tandem mass spectrometry. ??Therapeutic concentrations vary depending on type of transplanted organ and time elapsed since transplant. ??Typical trough concentrations range from 5-15 ng/mL. ??This test was developed and its performance characteristics determined by the [facility] consistent with CLIA requirements. ??This test has not been cleared or approved by the [place] Food and Drug administration. ??Current interpretive data last reviewed 2020. Blood 10/10/2023 8:37 AM MATHEMATICIAN RESEARCH 10/10/2023 8:55 AM MATHEMATICIAN RESEARCH us Lisandra Harper MD LAB BLOOD ORDERABLES Final Result [facility] Department [place] [address] * XR Chest 1 View (10/10/2023 6:35 AM MATHEMATICIAN RESEARCH) Anatomical Region Laterality Modality Body, Chest N/A Computed Radiogr aphy 10/10/2023 8:07 AM MATHEMATICIAN RESEARCH Impressions 10/10/2023 8:07 AM MATHEMATICIAN RESEARCH Comparison chest radiograph 10/09/2023 at 2:51 AM. ??A right chest tube remains in place. ??Multiple surgical clips project over the right greater than left upper quadrants and right. Stable small right pleural effusion with slight interval improvement in mild right basilar atelectasis. ??Stable moderate left pleural effusion with stable to slightly improved moderate left basilar atelectasis including partial left lower lobe collapse. ??No significant pulmonary edema. ??No pneumothorax. ??Heart size and mediastinal contours are partially obscured but likely stable. Electronically signed by: Ritesh Callejas M.D. Narrative 10/10/2023 8:07 AM MATHEMATICIAN RESEARCH EXAMINATION: 1 view chest radiograph Procedure Note Ritesh Callejas MD - 10/10/2023 EXAMINATION: 1 view chest radiograph IMPRESSION: Comparison chest radiograph 10/09/2023 at 2:51 AM. A right chest tube remains in place. Multiple surgical clips project over the right greater than left upper quadrants and right. Stable small right pleural effusion with slight interval improvement in mild right basilar atelectasis. Stable moderate left pleural effusion with stable to slightly improved moderate left basilar atelectasis including partial left lower lobe collapse. No significant pulmonary edema. No pneumothorax. Heart size and mediastinal contours are partially obscured but likely stable. Electronically signed by: Ritesh Callejas M.D. us Anita Gillespie MD IMG XR PROCEDURES Final Re sult * eGFR (10/10/2023 3:46 AM MATHEMATICIAN RESEARCH) eGFR >90 >=60 mL/min/1. 73 m2 [facility] Comment: Interpretive Data Reference Interval Normal ?>/= [...] interpretive data was last reviewed 2021. Blood 10/10/2023 3:46 AM MATHEMATICIAN RESEARCH 10/10/2023 3:57 AM MATHEMATICIAN RESEARCH us Lisandra Harper MD LAB BLOOD ORDERABLES Final Result [facility] Department [place] [address] * Potassium, whole blood (10/10/2023 3:46 AM MATHEMATICIAN RESEARCH) [facility] Potassium, bld 4.7 3.3 - 4.9 mmol/L [facility] Blood 10/10/2023 3:46 AM MATHEMATICIAN RESEARCH 10/10/2023 3:53 AM MATHEMATICIAN RESEARCH Lisandra Harper MD LAB BLOOD ORDERABLES Final Result Performing Organization Address [facility] de Phone Number [facility] Department [place] [address] * (ABNORMAL) CBC without differential (10/10/2023 3:46 AM MATHEMATICIAN RESEARCH) [facility] WBC 9.1 3.8 - 9.9 K/cumm [facility] Hgb 10.1(L) 13.0 - 17.5 g/dL [facility] Comment: Interpretive Data A reference range for this assay has not been established for patients with an unknown legal sex. Please refer to the laboratory test catalog for established sex-specific reference intervals. Current interpretive data was last revised on 2023. Hct 27.3(L) 38.9 - 50.3 % [facility] Comment: Interpretive Data A reference range for this assay has not been established for patients with an unknown legal sex. Please refer to the laboratory test catalog for established sex-specific reference intervals. Current interpretive data was last revised on 2023. Plt 242 150 - 400 K/cumm [facility] MPV 11.8 9.1 - 12.3 fL [facility] RBC 2.61(L) 4.30 - 5.80 M/cumm [facility] Comment: Interpretive Data A reference range for this assay has not been established for patients with an unknown legal sex. Please refer to the laboratory test catalog for established sex-specific reference intervals. Current interpretive data was last revised on 2023. MCV 104.6(H) 81.3 - 96.4 fL [facility] MCH 38.7(H) 27.1 - 33.3 pg [facility] MCHC 37.0(H) 32.3 - 35.7 g/dL [facility] RDW CV 17.7(H) 11.1 - 14.9 % [facility] RDW SD 67.5(H) 35.7 - 48.1 fL [facility] NRBC abs 0.00 0.00 - 0.01 K/cumm [facility] Blood 10/10/2023 3:46 AM MATHEMATICIAN RESEARCH 10/10/2023 3:57 AM MATHEMATICIAN RESEARCH us Lisandra Harper MD LAB BLOOD ORDERABLES Final Result [facility] Department [place] [address] * (ABNORMAL) Basic metabolic panel (10/10/2023 3:46 AM MATHEMATICIAN RESEARCH) Sodium 134(L) 135 - 145 mmol/L [facility] Potassium, pl 5.1(H) 3.3 - 4.9 mmol/L [facility] Comment:Hemolyzed; Potassium value may be falsely elevated by as much as 0.3-0.5 mmol/L. Suggest redraw and reanalysis. Chloride 109 97 - 110 mmol/L [facility] CO2 17(L) 22 - 32 mmol/L [facility] Anion gap 8 2 - 15 mmol/L [facility] BUN 40(H) 6 - 25 mg/dL [facility] Creatinine 1.01 0.80 - 1.30 mg/dL [facility] Glucose 110 70 - 199 mg/dL [facility] Comment: Interpretive Data Fasting glucose >/= [...] 2022. Calcium 7.6(L) 8.5 - 10.3 mg/dL [facility] Blood 10/10/2023 3:46 AM MATHEMATICIAN RESEARCH 10/10/2023 3:57 AM MATHEMATICIAN RESEARCH Lisandra Harper MD LAB BLOOD ORDERABLES Final Result [facility] [place] [address] * Magnesium (10/10/2023 3:46 AM MATHEMATICIAN RESEARCH) Pathologist [facility] Magnesium 2.0 1.4 - 2.5 mg/dL [facility] Blood 10/10/2023 3:46 AM MATHEMATICIAN RESEARCH 10/10/2023 3:57 AM MATHEMATICIAN RESEARCH Lisandra Harper MD LAB BLOOD ORDERABLES Final Result Performing Organization Address City/[facility] Co de Phone Number [facility] Department of [place] [address] * Phosphorus (10/10/2023 3:46 AM MATHEMATICIAN RESEARCH) Pathologist [facility] Phosphorus, pl 3.2 2.3 - 4.5 mg/dL [facility] Blood 10/10/2023 3:46 AM MATHEMATICIAN RESEARCH 10/10/2023 3:57 AM MATHEMATICIAN RESEARCH Lisandra Harper MD LAB BLOOD ORDERABLES Final Result Performing Organization Address City/[facility] Co de Phone Number [facility] [place] [address] * eGFR (10/09/2023 4:47 AM MATHEMATICIAN RESEARCH) [facility] eGFR >90 >=60 mL/min/1. 73 m2 [facility] Comment: Interpretive Data Reference Interval Normal ?>/= [...] interpretive data was last reviewed 2021. Blood 10/09/2023 4:47 AM MATHEMATICIAN RESEARCH 10/09/2023 5:14 AM MATHEMATICIAN RESEARCH us Lisandra Harper MD LAB BLOOD ORDERABLES Final Result [facility] Department [place] [address] * Potassium, whole blood (10/09/2023 4:47 AM MATHEMATICIAN RESEARCH) Pathologist [facility] Potassium, bld 4.9 3.3 - 4.9 mmol/L [facility] Blood 10/09/2023 4:47 AM MATHEMATICIAN RESEARCH 10/09/2023 5:09 AM MATHEMATICIAN RESEARCH us Lisandra Harper MD LAB BLOOD ORDERABLES Final Result [facility] Department [place] [address] * (ABNORMAL) CBC without differential (10/09/2023 4:47 AM MATHEMATICIAN RESEARCH) WBC 13.6(H) 3.8 - 9.9 K/cumm [facility] Hgb 10.6(L) 13.0 - 17.5 g/dL [facility] Comment: Result may be inaccurate due to increased plasma turbidity. Consider redraw. Interpretive Data A reference range for this assay has not been established for patients with an unknown legal sex. Please refer to the laboratory test catalog for established sex-specific reference intervals. Current interpretive data was last revised on 2023. Hct 27.5(L) 38.9 - 50.3 % [facility] Comment: Interpretive Data A reference range for this assay has not been established for patients with an unknown legal sex. Please refer to the laboratory test catalog for established sex-specific reference intervals. Current interpretive data was last revised on 2023. Plt 246 150 - 400 K/cumm [facility] MPV 11.4 9.1 - 12.3 fL [facility] RBC 2.71(L) 4.30 - 5.80 M/cumm [facility] Comment: Interpretive Data A reference range for this assay has not been established for patients with an unknown legal sex. Please refer to the laboratory test catalog for established sex-specific reference intervals. Current interpretive data was last revised on 2023. MCV 101.5(H) 81.3 - 96.4 fL [facility] MCH 39.1(H) 27.1 - 33.3 pg [facility] Comment:Result may be inaccu rate due to increased plasma turbidity. Consider redraw. MCHC 38.5(H) 32.3 - 35.7 g/dL [facility] Comment:Result may be inaccu rate due to increased plasma turbidity. Consider redraw. RDW CV 17.2(H) 11.1 - 14.9 % [facility] RDW SD 62.9(H) 35.7 - 48.1 fL [facility] NRBC abs 0.00 0.00 - 0.01 K/cumm [facility] Blood 10/09/2023 4:47 AM MATHEMATICIAN RESEARCH 10/09/2023 5:15 AM MATHEMATICIAN RESEARCH us Lisandra Harper MD LAB BLOOD ORDERABLES Final Result [facility] Department [place] [address] * (ABNORMAL) Basic metabolic panel (10/09/2023 4:47 AM MATHEMATICIAN RESEARCH) Sodium 134(L) 135 - 145 mmol/L [facility] Potassium, pl 5.2(H) 3.3 - 4.9 mmol/L [facility] Chloride 106 97 - 110 mmol/L [facility] CO2 18(L) 22 - 32 mmol/L [facility] Anion gap 10 2 - 15 mmol/L [facility] BUN 45(H) 6 - 25 mg/dL [facility] Creatinine 1.11 0.80 - 1.30 mg/dL [facility] Glucose 99 70 - 199 mg/dL [facility] Comment: Interpretive Data Fasting glucose >/= [...] 2022. Calcium 7.7(L) 8.5 - 10.3 mg/dL [facility] Blood 10/09/2023 4:47 AM MATHEMATICIAN RESEARCH 10/09/2023 5:14 AM MATHEMATICIAN RESEARCH Lisandra Harper MD LAB BLOOD ORDERABLES Final Result Performing Organization Address City/State/[facility] Co de Phone Number [facility] [place] [address] * Magnesium (10/09/2023 4:47 AM MATHEMATICIAN RESEARCH) Magnesium 2.0 1.4 - 2.5 mg/dL [facility] Blood 10/09/2023 4:47 AM MATHEMATICIAN RESEARCH 10/09/2023 5:14 AM MATHEMATICIAN RESEARCH us Lisandra Harper MD LAB BLOOD ORDERABLES Final Result Performing Organization Address [facility] Co de Phone Number [facility] [place] [address] * Phosphorus (10/09/2023 4:47 AM MATHEMATICIAN RESEARCH) Phosphorus, pl 3.2 2.3 - 4.5 mg/dL [facility] Blood 10/09/2023 4:47 AM MATHEMATICIAN RESEARCH 10/09/2023 5:14 AM MATHEMATICIAN RESEARCH us Lisandra Harper MD LAB BLOOD ORDERABLES Final Result Performing Organization Address [facility] Co de Phone Number [facility] [place] [address] * XR Chest 1 View (10/09/2023 3:07 AM MATHEMATICIAN RESEARCH) Anatomical Region Laterality Modality Body, Chest N/A Computed Radiogr aphy 10/09/2023 6:53 AM MATHEMATICIAN RESEARCH Impressions 10/09/2023 7:02 AM MATHEMATICIAN RESEARCH The current study is compared with the prior radiograph dated 10/08/2023 1:57 AM. ??Right basilar pleural catheter remains in place. ??Surgical clips project over the right upper quadrant and left upper quadrant. The cardiomediastinal silhouette is partially obscured but grossly stable. ??Small to moderate left pleural effusion with associated moderate left basilar atelectasis, similar to slightly increased compared to the prior examination. ??Unchanged small right pleural effusion with associated mild right basilar atelectasis. ??No pulmonary edema. ??No pneumothorax. Dictated by: Jason Gonzales MD The radiology attending physician has personally reviewed this study, and had reviewed and/or edited this written report and agrees with it. Electronically signed by: Darcy Jimenez M.D. Narrative 10/09/2023 7:02 AM MATHEMATICIAN RESEARCH EXAMINATION: 1 view chest radiograph Procedure Note Darcy Jimenez MD - 10/09/2023 EXAMINATION: 1 view chest radiograph IMPRESSION: The current study is compared with the prior radiograph dated 10/08/2023 1:57 AM. Right basilar pleural catheter remains in place. Surgical clips project over the right upper quadrant and left upper quadrant. The cardiomediastinal silhouette is partially obscured but grossly stable. Small to moderate left pleural effusion with associated moderate left basilar atelectasis, similar to slightly increased compared to the prior examination. Unchanged small right pleural effusion with associated mild right basilar atelectasis. No pulmonary edema. No pneumothorax. Dictated by: Jason Gonzales MD The radiology attending physician has personally reviewed this study, and had reviewed and/or edited this written report and agrees with it. Electronically signed by: Darcy Jimenez M.D. us Anita Gillespie MD IMG XR PROCEDURES Final Re sult * eGFR (10/08/2023 8:28 PM MATHEMATICIAN RESEARCH) [facility] eGFR >90 >=60 mL/min/1. 73 m2 [facility] Comment: Interpretive Data Reference Interval Normal ?>/= [...] interpretive data was last reviewed 2021. Blood 10/08/2023 8:28 PM MATHEMATICIAN RESEARCH 10/08/2023 9:44 PM MATHEMATICIAN RESEARCH us Lisandra Harper MD LAB BLOOD ORDERABLES Final Result [facility] [place] [address] * (ABNORMAL) Basic metabolic panel (10/08/2023 8:28 PM MATHEMATICIAN RESEARCH) Sodium 133(L) 135 - 145 mmol/L [facility] Potassium, pl 5.2(H) 3.3 - 4.9 mmol/L [facility] Comment:Hemolyzed; Potassium value may be falsely elevated by as much as 0.3-0.5 mmol/L. Suggest redraw and reanalysis. Chloride 107 97 - 110 mmol/L [facility] CO2 17(L) 22 - 32 mmol/L [facility] Anion gap 9 2 - 15 mmol/L [facility] BUN 37(H) 6 - 25 mg/dL [facility] Creatinine 0.91 0.80 - 1.30 mg/dL [facility] Glucose 157 70 - 199 mg/dL [facility] Comment: Interpretive Data Fasting glucose >/= [...] interpretive data was last revised 2022. Calcium 7.4(L) 8.5 - 10.3 mg/dL [facility] Blood 10/08/2023 8:28 PM MATHEMATICIAN RESEARCH 10/08/2023 9:44 PM MATHEMATICIAN RESEARCH Lisandra Harper MD LAB BLOOD ORDERABLES Final Result Performing Organization Address City/[facility]/ZIP Co de Phone Number [facility] [place] [address] * Mycology (fungal) culture and stain Pleural fluid Chest (10/08/2023 1:16 PM MATHEMATICIAN RESEARCH) Pathologist [facility] Direct Specimen Exam Stain: No Fungal elements seen. [facility] Report Final Report: No growth of fungus [facility] Pleural fluid (Chest) 10/08/2023 1:16 PM MATHEMATICIAN RESEARCH 10/08/2023 1:44 PM MATHEMATICIAN RESEARCH Narrative [facility] - 11/05/2023 8:12 AM MATHEMATICIAN RESEARCH Testing performed by [facility] Microbiology Laboratory ([phone]). Lisandra Harper MD LAB MICROBIOLOGY - GE NERAL ORDERABLES Final Result [facility] Department [place] [address] * Potassium, whole blood (10/08/2023 7:49 AM MATHEMATICIAN RESEARCH) Pathologist [facility] Potassium, bld 4.7 3.3 - 4.9 mmol/L [facility] Blood 10/08/2023 7:49 AM MATHEMATICIAN RESEARCH 10/08/2023 8:06 AM MATHEMATICIAN RESEARCH Lisandra Harper MD LAB BLOOD ORDERABLES Final Result Performing Organization Address [facility] de Phone Number [facility] [place] [address] * Tacrolimus level trough (10/08/2023 7:49 AM MATHEMATICIAN RESEARCH) Tacrolimus trough 8.5 ng/mL [facility] Comment: Interpretive Data Testing performed by liquid chromatography-tandem mass spectrometry. ??Therapeutic concentrations vary depending on type of transplanted organ and time elapsed since transplant. ??Typical trough concentrations range from 5-15 ng/mL. ??This test was developed and its performance characteristics determined by the [facility] Laboratory consistent with CLIA requirements. ??This test has not been cleared or approved by the [place] Food and Drug administration. ??Current interpretive data last reviewed 2020. Blood 10/08/2023 7:49 AM MATHEMATICIAN RESEARCH 10/08/2023 8:07 AM MATHEMATICIAN RESEARCH Lisandra Harper MD LAB BLOOD ORDERABLES Final Result Performing Organization Address [facility] Co de Phone Number [facility] Department [place] [address] * eGFR (10/08/2023 5:44 AM MATHEMATICIAN RESEARCH) eGFR >90 >=60 mL/min/1. 73 m2 [facility] Comment: Interpretive Data Reference Interval Normal ?>/= [...] interpretive data was last reviewed 2021. Blood 10/08/2023 5:44 AM MATHEMATICIAN RESEARCH 10/08/2023 6:17 AM MATHEMATICIAN RESEARCH Lisandra Harper MD LAB BLOOD ORDERABLES Final Result Performing Organization Address [facility] Co de Phone Number [facility] Department [place] [address] * (ABNORMAL) Potassium, whole blood (10/08/2023 5:44 AM MATHEMATICIAN RESEARCH) Potassium, bld 5.7(H) 3.3 - 4.9 mmol/L [facility] Comment:Hemolyzed; potassium value may be falsely elevated by as much as 0.3 - 0.5 mmol/L. Suggest redraw and reanalysis. Blood 10/08/2023 5:44 AM MATHEMATICIAN RESEARCH 10/08/2023 6:05 AM MATHEMATICIAN RESEARCH Lisandra Harper MD LAB BLOOD ORDERABLES Final Result Performing Organization Address [facility] Co de Phone Number [facility] [place] [address] * (ABNORMAL) CBC without differential (10/08/2023 5:44 AM MATHEMATICIAN RESEARCH) WBC 12.3(H) 3.8 - 9.9 K/cumm [facility] Hgb 11.1(L) 13.0 - 17.5 g/dL [facility] Comment: Result may be inaccurate due to increased plasma turbidity. Consider redraw. Interpretive Data A reference range for this assay has not been established for patients with an unknown legal sex. Please refer to the laboratory test catalog for established sex-specific reference intervals. Current interpretive data was last revised on 2023. Hct 29.1(L) 38.9 - 50.3 % [facility] Comment: Interpretive Data A reference range for this assay has not been established for patients with an unknown legal sex. Please refer to the laboratory test catalog for established sex-specific reference intervals. Current interpretive data was last revised on 2023. Plt 235 150 - 400 K/cumm [facility] MPV 11.4 9.1 - 12.3 fL [facility] RBC 2.88(L) 4.30 - 5.80 M/cumm [facility] Comment: Interpretive Data A reference range for this assay has not been established for patients with an unknown legal sex. Please refer to the laboratory test catalog for established sex-specific reference intervals. Current interpretive data was last revised on 2023. MCV 101.0(H) 81.3 - 96.4 fL [facility] MCH 38.5(H) 27.1 - 33.3 pg [facility] Comment:Result may be inaccu rate due to increased plasma turbidity. Consider redraw. MCHC 38.1(H) 32.3 - 35.7 g/dL [facility] Comment:Result may be inaccu rate due to increased plasma turbidity. Consider redraw. RDW CV 17.2(H) 11.1 - 14.9 % [facility] RDW SD 62.4(H) 35.7 - 48.1 fL [facility] NRBC abs 0.00 0.00 - 0.01 K/cumm [facility] Blood 10/08/2023 5:44 AM MATHEMATICIAN RESEARCH 10/08/2023 6:17 AM MATHEMATICIAN RESEARCH us Lisandra Harper MD LAB BLOOD ORDERABLES Final Result [facility] [place] [address] * (ABNORMAL) Basic metabolic panel (10/08/2023 5:44 AM MATHEMATICIAN RESEARCH) [facility] Sodium 135 135 - 145 mmol/L [facility] Potassium, pl 6.1(H) 3.3 - 4.9 mmol/L [facility] Comment:Hemolyzed; Potassium value may be falsely elevated by as much as 1.1-1.6 mmol/L. Suggest redraw and reanalysis. Chloride 107 97 - 110 mmol/L [facility] CO2 17(L) 22 - 32 mmol/L [facility] Anion gap 11 2 - 15 mmol/L [facility] BUN 36(H) 6 - 25 mg/dL [facility] Creatinine 0.88 0.80 - 1.30 mg/dL [facility] Glucose 113 70 - 199 mg/dL [facility] Comment: Interpretive Data Fasting glucose >/= [...] 2022. Calcium 7.7(L) 8.5 - 10.3 mg/dL [facility] Blood 10/08/2023 5:44 AM MATHEMATICIAN RESEARCH 10/08/2023 6:17 AM MATHEMATICIAN RESEARCH us Lisandra Harper MD LAB BLOOD ORDERABLES Final Result [facility] [place] [address] * Magnesium (10/08/2023 5:44 AM MATHEMATICIAN RESEARCH) [facility] Magnesium 2.1 1.4 - 2.5 mg/dL [facility] Blood 10/08/2023 5:44 AM MATHEMATICIAN RESEARCH 10/08/2023 6:17 AM MATHEMATICIAN RESEARCH Lisandra Harper MD LAB BLOOD ORDERABLES Final Result Performing Organization Address City/[facility] Co de Phone Number [facility] [place] [address] * Phosphorus (10/08/2023 5:44 AM MATHEMATICIAN RESEARCH) Phosphorus, pl 3.0 2.3 - 4.5 mg/dL [facility] Blood 10/08/2023 5:44 AM MATHEMATICIAN RESEARCH 10/08/2023 6:17 AM MATHEMATICIAN RESEARCH Lisandra Harper MD LAB BLOOD ORDERABLES Final Result Performing Organization Address [facility] de Phone Number [facility] [place] [address] * XR Chest 1 View (10/08/2023 2:07 AM MATHEMATICIAN RESEARCH) Anatomical Region Laterality Modality Body, Chest N/A Digital Radiogra phy 10/08/2023 9:49 AM MATHEMATICIAN RESEARCH Impressions 10/08/2023 10:05 AM MATHEMATICIAN RESEARCH The current study is compared with the prior radiograph dated 10/07/2023 1:14 AM. ??Right basilar pleural catheter remains in place. Multiple surgical clips project over the right upper quadrant and left upper quadrant. The cardiac silhouette is obscured. ??Unchanged opacification of the left lung base likely on the basis of left lower lobe collapse related to atelectasis or underlying pneumonia as well as a small left pleural effusion. ??Unchanged small right pleural effusion. ??No pneumothorax. Dictated by: Jason Gonzales MD The radiology attending physician has personally reviewed this study, and had reviewed and/or edited this written report and agrees with it. Electronically signed by: Severiano Mason M.D. Narrative 10/08/2023 10:05 AM MATHEMATICIAN RESEARCH EXAMINATION: 1 view chest radiograph Procedure Note Severiano Mason MD - 10/08/2023 EXAMINATION: 1 view chest radiograph IMPRESSION: The current study is compared with the prior radiograph dated 10/07/2023 1:14 AM. Right basilar pleural catheter remains in place. Multiple surgical clips project over the right upper quadrant and left upper quadrant. The cardiac silhouette is obscured. Unchanged opacification of the left lung base likely on the basis of left lower lobe collapse related to atelectasis or underlying pneumonia as well as a small left pleural effusion. Unchanged small right pleural effusion. No pneumothorax. Dictated by: Jason Gonzales MD The radiology attending physician has personally reviewed this study, and had reviewed and/or edited this written report and agrees with it. Electronically signed by: Severiano Mason M.D. us Anita Gillespie MD IMG XR PROCEDURES Final Re sult * Mold Blood Culture Blood (10/07/2023 9:11 PM MATHEMATICIAN RESEARCH) Report Final Report: No growth of fungus [facility] Blood 10/07/2023 9:11 PM MATHEMATICIAN RESEARCH 10/07/2023 9:28 PM MATHEMATICIAN RESEARCH Narrative [facility] - 11/04/2023 7:33 AM MATHEMATICIAN RESEARCH Testing performed by [facility] Microbiology Laboratory ([phone]). us Lisandra Harper MD LAB MICROBIOLOGY - [facility] ORDERABLES Final Result [facility] Department [place] [address] * Aspergillus galactomannan antigen Blood (10/07/2023 8:01 PM MATHEMATICIAN RESEARCH) Aspergillus galactomannan Ag <0.500 <0.5 Index [facility] Comment: ADDITIONAL INFORMATION This is a qualitative test and the resulted index value is not indicative of disease severity. ??Serial testing is recommended for patients at high risk for invasive aspergillosis. This assay was performed using the FDA-cleared Medisas-AnSyn Platelia Aspergillus Galactomannan EIA. Test Performed by: [facility] [address] [place] [address] Circular Sawyer Helper: Jason Sandy M.D. Ph.D.; [facility]# [id number] Blood 10/07/2023 8:01 PM MATHEMATICIAN RESEARCH 10/07/2023 8:41 PM MATHEMATICIAN RESEARCH Lisandra Harper MD LAB MICROBIOLOGY - [facility] ORDERABLES Final Result [facility] [place] [address] * Potassium, whole blood (10/07/2023 8:24 AM MATHEMATICIAN RESEARCH) [facility] Potassium, bld 4.7 3.3 - 4.9 mmol/L [facility] Blood 10/07/2023 8:24 AM MATHEMATICIAN RESEARCH 10/07/2023 8:34 AM MATHEMATICIAN RESEARCH Lisandra Harper MD LAB BLOOD ORDERABLES Final Result Performing Organization Address City/[facility]/ZIP Co de Phone Number [facility] [place] [address] * eGFR (10/07/2023 4:43 AM MATHEMATICIAN RESEARCH) [facility] eGFR >90 >=60 mL/min/1. 73 m2 [facility] Comment: Interpretive Data Reference Interval Normal ?>/= [...] interpretive data was last reviewed 2021. Blood 10/07/2023 4:43 AM MATHEMATICIAN RESEARCH 10/07/2023 5:51 AM MATHEMATICIAN RESEARCH Lisandra Harper MD LAB BLOOD ORDERABLES Final Result [facility] Department [place] [address] * (ABNORMAL) CBC without differential (10/07/2023 4:43 AM MATHEMATICIAN RESEARCH) [facility] WBC 10.5(H) 3.8 - 9.9 K/cumm [facility] Hgb 10.7(L) 13.0 - 17.5 g/dL [facility] Comment: Result may be inaccurate due to increased plasma turbidity. Consider redraw. Interpretive Data A reference range for this assay has not been established for patients with an unknown legal sex. Please refer to the laboratory test catalog for established sex-specific reference intervals. Current interpretive data was last revised on 2023. Hct 27.6(L) 38.9 - 50.3 % [facility] Comment: Interpretive Data A reference range for this assay has not been established for patients with an unknown legal sex. Please refer to the laboratory test catalog for established sex-specific reference intervals. Current interpretive data was last revised on 2023. Plt 221 150 - 400 K/cumm [facility] MPV 11.8 9.1 - 12.3 fL [facility] RBC 2.67(L) 4.30 - 5.80 M/cumm [facility] Comment: Interpretive Data A reference range for this assay has not been established for patients with an unknown legal sex. Please refer to the laboratory test catalog for established sex-specific reference intervals. Current interpretive data was last revised on 2023. MCV 103.4(H) 81.3 - 96.4 fL [facility] MCH 40.1(H) 27.1 - 33.3 pg [facility] Comment:Result may be inaccu rate due to increased plasma turbidity. Consider redraw. MCHC 38.8(H) 32.3 - 35.7 g/dL [facility] Comment:Result may be inaccu rate due to increased plasma turbidity. Consider redraw. RDW CV 17.0(H) 11.1 - 14.9 % [facility] RDW SD 64.3(H) 35.7 - 48.1 fL [facility] NRBC abs 0.00 0.00 - 0.01 K/cumm [facility] Blood 10/07/2023 4:43 AM MATHEMATICIAN RESEARCH 10/07/2023 5:54 AM MATHEMATICIAN RESEARCH us Lisandra Harper MD LAB BLOOD ORDERABLES Final Result [facility] Department [place] [address] * (ABNORMAL) Basic metabolic panel (10/07/2023 4:43 AM MATHEMATICIAN RESEARCH) Pathologist [facility] Sodium 132(L) 135 - 145 mmol/L [facility] Potassium, pl 5.8(H) 3.3 - 4.9 mmol/L [facility] Comment:Hemolyzed; Potassium value may be falsely elevated by as much as 1.1-1.6 mmol/L. Suggest redraw and reanalysis. Chloride 104 97 - 110 mmol/L [facility] CO2 20(L) 22 - 32 mmol/L [facility] Anion gap 8 2 - 15 mmol/L [facility] BUN 40(H) 6 - 25 mg/dL [facility] Creatinine 1.00 0.80 - 1.30 mg/dL [facility] Glucose 99 70 - 199 mg/dL [facility] Comment: Interpretive Data Fasting glucose >/= [...] 2022. Calcium 7.8(L) 8.5 - 10.3 mg/dL [facility] Blood 10/07/2023 4:43 AM MATHEMATICIAN RESEARCH 10/07/2023 5:51 AM MATHEMATICIAN RESEARCH Lisandra Harper MD LAB BLOOD ORDERABLES Final Result Performing Organization Address City/[facility]/ZIP Co de Phone Number [facility] Department of [facility] [place] [address] * Magnesium (10/07/2023 4:43 AM MATHEMATICIAN RESEARCH) Pathologist [facility] Magnesium 2.2 1.4 - 2.5 mg/dL [facility] Blood 10/07/2023 4:43 AM MATHEMATICIAN RESEARCH 10/07/2023 5:51 AM MATHEMATICIAN RESEARCH Lisandra Harper MD LAB BLOOD ORDERABLES Final Result [facility] Department [place] [address] * Phosphorus (10/07/2023 4:43 AM MATHEMATICIAN RESEARCH) Phosphorus, pl 3.0 2.3 - 4.5 mg/dL [facility] Blood 10/07/2023 4:43 AM MATHEMATICIAN RESEARCH 10/07/2023 5:51 AM MATHEMATICIAN RESEARCH Lisandra Harper MD LAB BLOOD ORDERABLES Final Result [facility] Department [place] [address] * XR Chest 1 View (10/07/2023 1:37 AM MATHEMATICIAN RESEARCH) Anatomical Region Laterality Modality Body, Chest N/A Computed Radiogr aphy 10/07/2023 10:1 8 AM MATHEMATICIAN RESEARCH Impressions 10/07/2023 11:37 AM MATHEMATICIAN RESEARCH The current study is compared with the prior radiograph dated 10/06/2023. Right chest tube. ??Surgical clips project over the upper abdomen. Stable small right pleural effusion and moderate left pleural effusion with associated atelectasis in the lung bases. ??No pneumothorax. ??The cardiomediastinal silhouette is obscured but overall appears unchanged. Dictated by: Deshawn Jaramillo MD The radiology attending physician has personally reviewed this study, and had reviewed and/or edited this written report and agrees with it. Electronically signed by: Jena Peters M.D. Narrative 10/07/2023 11:37 AM MATHEMATICIAN RESEARCH EXAMINATION: 1 view chest radiograph Procedure Note Jena Peters MD - 10/07/2023 EXAMINATION: 1 view chest radiograph IMPRESSION: The current study is compared with the prior radiograph dated 10/06/2023. Right chest tube. Surgical clips project over the upper abdomen. Stable small right pleural effusion and moderate left pleural effusion with associated atelectasis in the lung bases. No pneumothorax. The cardiomediastinal silhouette is obscured but overall appears unchanged. Dictated by: Deshawn Jaramillo MD The radiology attending physician has personally reviewed this study, and had reviewed and/or edited this written report and agrees with it. Electronically signed by: Jena Fran, M.D. us Anita Gillespie MD IMG XR PROCEDURES Final Re sult * Tacrolimus level trough (10/06/2023 9:06 AM MATHEMATICIAN RESEARCH) [facility] Tacrolimus trough 7.8 ng/mL [facility] Comment: Interpretive Data Testing performed by liquid chromatography-tandem mass spectrometry. ??Therapeutic concentrations vary depending on type of transplanted organ and time elapsed since transplant. ??Typical trough concentrations range from 5-15 ng/mL. ??This test was developed and its performance characteristics determined by the [facility] Laboratory consistent with CLIA requirements. ??This test has not been cleared or approved by the [place] Food and Drug administration. ??Current interpretive data last reviewed 2020. Blood 10/06/2023 9:06 AM MATHEMATICIAN RESEARCH 10/06/2023 9:21 AM MATHEMATICIAN RESEARCH us Yulisa Joy MD LAB BLOOD ORDERABLES F inal Result [facility] Department [place] [address] * eGFR (10/06/2023 5:03 AM MATHEMATICIAN RESEARCH) [facility] eGFR 85 >=60 mL/min/1. 73 m2 [facility] Comment: Interpretive Data Reference Interval Normal ?>/= [...] interpretive data was last reviewed 2021. Blood 10/06/2023 5:03 AM MATHEMATICIAN RESEARCH 10/06/2023 5:17 AM MATHEMATICIAN RESEARCH us Lisandra Harper MD LAB BLOOD ORDERABLES Final Result [facility] [place] [address] * (ABNORMAL) CBC without differential (10/06/2023 5:03 AM MATHEMATICIAN RESEARCH) [facility] WBC 10.2(H) 3.8 - 9.9 K/cumm [facility] Hgb 10.9(L) 13.0 - 17.5 g/dL [facility] Comment: Result may be inaccurate due to increased plasma turbidity. Consider redraw. Interpretive Data A reference range for this assay has not been established for patients with an unknown legal sex. Please refer to the laboratory test catalog for established sex-specific reference intervals. Current interpretive data was last revised on 2023. Hct 28.3(L) 38.9 - 50.3 % [facility] Comment: Interpretive Data A reference range for this assay has not been established for patients with an unknown legal sex. Please refer to the laboratory test catalog for established sex-specific reference intervals. Current interpretive data was last revised on 2023. Plt 222 150 - 400 K/cumm [facility] MPV 11.5 9.1 - 12.3 fL [facility] RBC 2.73(L) 4.30 - 5.80 M/cumm [facility] Comment: Interpretive Data A reference range for this assay has not been established for patients with an unknown legal sex. Please refer to the laboratory test catalog for established sex-specific reference intervals. Current interpretive data was last revised on 2023. MCV 103.7(H) 81.3 - 96.4 fL [facility] MCH 39.9(H) 27.1 - 33.3 pg [facility] Comment:Result may be inaccu rate due to increased plasma turbidity. Consider redraw. MCHC 38.5(H) 32.3 - 35.7 g/dL [facility] Comment:Result may be inaccu rate due to increased plasma turbidity. Consider redraw. RDW CV 16.6(H) 11.1 - 14.9 % [facility] RDW SD 61.9(H) 35.7 - 48.1 fL [facility] NRBC abs 0.00 0.00 - 0.01 K/cumm [facility] Blood 10/06/2023 5:03 AM MATHEMATICIAN RESEARCH 10/06/2023 5:17 AM MATHEMATICIAN RESEARCH Lisandra Harper MD LAB BLOOD ORDERABLES Final Result [facility] [place] [address] * (ABNORMAL) Basic metabolic panel (10/06/2023 5:03 AM MATHEMATICIAN RESEARCH) Sodium 132(L) 135 - 145 mmol/L [facility] Potassium, pl 4.7 3.3 - 4.9 mmol/L [facility] Chloride 103 97 - 110 mmol/L [facility] CO2 21(L) 22 - 32 mmol/L [facility] Anion gap 8 2 - 15 mmol/L [facility] BUN 45(H) 6 - 25 mg/dL [facility] Creatinine 1.18 0.80 - 1.30 mg/dL [facility] Glucose 114 70 - 199 mg/dL [facility] Comment: Interpretive Data Fasting glucose >/= [...] 2022. Calcium 7.8(L) 8.5 - 10.3 mg/dL [facility] Blood 10/06/2023 5:03 AM MATHEMATICIAN RESEARCH 10/06/2023 5:17 AM MATHEMATICIAN RESEARCH Lisandra Harper MD LAB BLOOD ORDERABLES Final Result Performing Organization Address City/[facility]/ZIP Co de Phone Number [facility] Department of [facility] [place] [address] * Magnesium (10/06/2023 5:03 AM MATHEMATICIAN RESEARCH) Magnesium 2.4 1.4 - 2.5 mg/dL [facility] Blood 10/06/2023 5:03 AM MATHEMATICIAN RESEARCH 10/06/2023 5:17 AM MATHEMATICIAN RESEARCH Result [facility] Lisandra Harper MD LAB BLOOD ORDERABLES Final Result Performing Organization Address [facility] de Phone Number [facility] Department of [facility] [place] [address] * Phosphorus (10/06/2023 5:03 AM MATHEMATICIAN RESEARCH) Phosphorus, pl 2.6 2.3 - 4.5 mg/dL [facility] Blood 10/06/2023 5:03 AM MATHEMATICIAN RESEARCH 10/06/2023 5:17 AM MATHEMATICIAN RESEARCH Lisandra Harper MD LAB BLOOD ORDERABLES Final Result Performing Organization Address [facility] Co de Phone Number [facility] Department [place] [address] * XR Chest 1 View (10/06/2023 2:29 AM MATHEMATICIAN RESEARCH) Anatomical Region Laterality Modality Body, Chest N/A Computed Radiogr aphy 10/06/2023 11:0 0 AM MATHEMATICIAN RESEARCH Impressions 10/06/2023 11:10 AM MATHEMATICIAN RESEARCH The current study is compared with the prior radiograph dated 10/05/2023. Right basilar chest tube Decreased small right pleural effusion. ??Stable small left pleural effusion. ??Stable retrocardiac consolidation, likely representing atelectasis. ??No pneumothorax. ??Cardiomediastinal silhouette is stable. Clips project over the abdomen. Dictated by: Deshawn Jaramillo MD The radiology attending physician has personally reviewed this study, and had reviewed and/or edited this written report and agrees with it. Electronically signed by: Dl Cabrera M.D. Narrative 10/06/2023 11:10 AM MATHEMATICIAN RESEARCH EXAMINATION: 1 view chest radiograph Procedure Note Dl Cabrera MD - 10/06/2023 EXAMINATION: 1 view chest radiograph IMPRESSION: The current study is compared with the prior radiograph dated 10/05/2023. Right basilar chest tube Decreased small right pleural effusion. Stable small left pleural effusion. Stable retrocardiac consolidation, likely representing atelectasis. No pneumothorax. Cardiomediastinal silhouette is stable. Clips project over the abdomen. Dictated by: Deshawn Jaramillo MD The radiology attending physician has personally reviewed this study, and had reviewed and/or edited this written report and agrees with it. Electronically signed by: Dl Cabrera M.D. Anita Gillespie MD IMG XR PROCEDURES Final Re sult * XR Chest 1 View (10/05/2023 12:34 PM MATHEMATICIAN RESEARCH) Anatomical Region Laterality Modality Body, Chest N/A Computed Radiogr aphy 10/05/2023 1:54 PM MATHEMATICIAN RESEARCH Impressions 10/05/2023 2:32 PM MATHEMATICIAN RESEARCH The current study is compared with the prior radiograph dated ??10/04/2023. Right basilar chest tube. ??Decreased small right pleural effusion with associated atelectasis in left lung. ??Increased small to moderate left effusion with increased atelectasis in the left lung base. ??No pneumothorax. ??Cardiomediastinal silhouette is stable. Surgical clips project over the upper abdomen. Dictated by: Deshawn Jaramillo MD The radiology attending physician has personally reviewed this study, and had reviewed and/or edited this written report and agrees with it. Electronically signed by: Michelle Smith M.D. Narrative 10/05/2023 2:32 PM MATHEMATICIAN RESEARCH EXAMINATION: 1 view chest radiograph Procedure Note Michelle Smith MD - 10/05/2023 EXAMINATION: 1 view chest radiograph IMPRESSION: The current study is compared with the prior radiograph dated 10/04/2023. Right basilar chest tube. Decreased small right pleural effusion with associated atelectasis in left lung. Increased small to moderate left effusion with increased atelectasis in the left lung base. No pneumothorax. Cardiomediastinal silhouette is stable. Surgical clips project over the upper abdomen. Dictated by: Deshawn Jaramillo MD The radiology attending physician has personally reviewed this study, and had reviewed and/or edited this written report and agrees with it. Electronically signed by: Michelle Smith M.D. Lisandra Harper MD IMG XR PROCEDURES Fin al Result * Potassium, whole blood (10/05/2023 9:23 AM MATHEMATICIAN RESEARCH) Pathologist [facility] Potassium, bld 4.5 3.3 - 4.9 mmol/L [facility] Blood 10/05/2023 9:23 AM MATHEMATICIAN RESEARCH 10/05/2023 9:33 AM MATHEMATICIAN RESEARCH Lisandra Harper MD LAB BLOOD ORDERABLES Final Result [facility] Department [place] [address] * eGFR (10/05/2023 4:35 AM MATHEMATICIAN RESEARCH) Pathologist [facility] eGFR 67 >=60 mL/min/1. 73 m2 [facility] Comment: Interpretive Data Reference Interval Normal ?>/= [...] interpretive data was last reviewed 2021. Blood 10/05/2023 4:35 AM MATHEMATICIAN RESEARCH 10/05/2023 5:23 AM MATHEMATICIAN RESEARCH us Lisandra Harper MD LAB BLOOD ORDERABLES Final Result [facility] Department [place] [address] * Tacrolimus level trough (10/05/2023 4:35 AM MATHEMATICIAN RESEARCH) [facility] Tacrolimus trough 9.9 ng/mL [facility] Comment: Interpretive Data Testing performed by liquid chromatography-tandem mass spectrometry. ??Therapeutic concentrations vary depending on type of transplanted organ and time elapsed since transplant. ??Typical trough concentrations range from 5-15 ng/mL. ??This test was developed and its performance characteristics determined by the [facility] Laboratory consistent with CLIA requirements. ??This test has not been cleared or approved by the [place] Food and Drug administration. ??Current interpretive data last reviewed 2020. Blood 10/05/2023 4:35 AM MATHEMATICIAN RESEARCH 10/05/2023 5:30 AM MATHEMATICIAN RESEARCH Yulisa Joy MD LAB BLOOD ORDERABLES F inal Result [facility] [place] [address] * (ABNORMAL) CBC without differential (10/05/2023 4:35 AM MATHEMATICIAN RESEARCH) [facility] WBC 10.8(H) 3.8 - 9.9 K/cumm [facility] Hgb 10.2(L) 13.0 - 17.5 g/dL [facility] Comment: Result may be inaccurate due to increased plasma turbidity. Consider redraw. Interpretive Data A reference range for this assay has not been established for patients with an unknown legal sex. Please refer to the laboratory test catalog for established sex-specific reference intervals. Current interpretive data was last revised on 2023. Hct 27.1(L) 38.9 - 50.3 % [facility] Comment: Interpretive Data A reference range for this assay has not been established for patients with an unknown legal sex. Please refer to the laboratory test catalog for established sex-specific reference intervals. Current interpretive data was last revised on 2023. Plt 244 150 - 400 K/cumm [facility] MPV 11.8 9.1 - 12.3 fL [facility] RBC 2.66(L) 4.30 - 5.80 M/cumm [facility] Comment: Interpretive Data A reference range for this assay has not been established for patients with an unknown legal sex. Please refer to the laboratory test catalog for established sex-specific reference intervals. Current interpretive data was last revised on 2023. MCV 101.9(H) 81.3 - 96.4 fL [facility] MCH 38.3(H) 27.1 - 33.3 pg [facility] Comment:Result may be inaccu rate due to increased plasma turbidity. Consider redraw. MCHC 37.6(H) 32.3 - 35.7 g/dL [facility] Comment:Result may be inaccu rate due to increased plasma turbidity. Consider redraw. RDW CV 16.4(H) 11.1 - 14.9 % [facility] RDW SD 60.7(H) 35.7 - 48.1 fL [facility] NRBC abs 0.00 0.00 - 0.01 K/cumm [facility] Blood 10/05/2023 4:35 AM MATHEMATICIAN RESEARCH 10/05/2023 5:24 AM MATHEMATICIAN RESEARCH us Lisandra Harper MD LAB BLOOD ORDERABLES Edited Result - Final [facility] [place] [address] * (ABNORMAL) Basic metabolic panel (10/05/2023 4:35 AM MATHEMATICIAN RESEARCH) Sodium 133(L) 135 - 145 mmol/L [facility] Potassium, pl 5.7(H) 3.3 - 4.9 mmol/L [facility] Comment:Hemolyzed; Potassium value may be falsely elevated by as much as 1.1-1.6 mmol/L. Suggest redraw and reanalysis. Chloride 102 97 - 110 mmol/L [facility] CO2 21(L) 22 - 32 mmol/L [facility] Anion gap 10 2 - 15 mmol/L [facility] BUN 51(H) 6 - 25 mg/dL [facility] Creatinine 1.44(H) 0.80 - 1.30 mg/dL [facility] Glucose 121 70 - 199 mg/dL [facility] Comment: Interpretive Data Fasting glucose >/= [...] 2022. Calcium 7.8(L) 8.5 - 10.3 mg/dL [facility] Blood 10/05/2023 4:35 AM MATHEMATICIAN RESEARCH 10/05/2023 5:23 AM MATHEMATICIAN RESEARCH Lisandra Harper MD LAB BLOOD [place] [address] * Magnesium (10/05/2023 4:35 AM MATHEMATICIAN RESEARCH) Pathologist [facility] Magnesium 2.3 1.4 - 2.5 mg/dL [facility] Blood 10/05/2023 4:35 AM MATHEMATICIAN RESEARCH 10/05/2023 5:23 AM MATHEMATICIAN RESEARCH Lisandra Harper MD LAB BLOOD ORDERABLES Final Result Performing Organization Address City/[facility] Co de Phone Number [facility] Department of [place] [address] * Phosphorus (10/05/2023 4:35 AM MATHEMATICIAN RESEARCH) Pathologist [facility] Phosphorus, pl 3.9 2.3 - 4.5 mg/dL [facility] Blood 10/05/2023 4:35 AM MATHEMATICIAN RESEARCH 10/05/2023 5:23 AM MATHEMATICIAN RESEARCH Lisandra Harper MD LAB BLOOD ORDERABLES Final Result Performing Organization Address City/[facility] Co de Phone Number [facility] [place] [address] * Histoplasma Antigen Urine (10/04/2023 4:46 PM MATHEMATICIAN RESEARCH) Histo Ag Ur result None Detected None Detected [facility] Histo Ag Ur interp Negative Negative [facility] Comment: Result Interpretation: Reference interval: None Detected Results reported as ng/mL in 0.20 - 20.00 ng/mL range Results above 20.00 ng/mL are reported as 'Positive, Above the Limit of Quantification' Testing Performed by: [facility], [address] [facility] [place] [address]. This test was developed and its performance characteristics determined by [facility]. It has not been cleared or approved by the FDA; however, FDA clearance or approval is not currently required for clinical use. The results are not intended to be used as the sole means for clinical diagnosis or patient management decisions. Interpretative data updated 12/30/2020 Urine 10/04/2023 4:46 PM MATHEMATICIAN RESEARCH 10/04/2023 8:43 PM MATHEMATICIAN RESEARCH Lisandra Harper MD LAB MICROBIOLOGY - [facility] ORDERABLES Final Result [facility] Department [place] [address] * CHEST TUBE INSERTION (10/04/2023 3:12 PM MATHEMATICIAN RESEARCH) Anatomical Region Laterality Modality Other Narrative 10/04/2023 3:12 PM MATHEMATICIAN RESEARCH David Saab MD ? 10/04/2023 ??3:14 PM Chest Tube Insertion Date/Time: 10/04/2023 3:12 PM Performed by: David Saab MD Authorized by: David Saab MD ?? [place] Protocol: RN Notified of Procedure: yes ?? 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 Consent form signed, dated, timed; matches correct patient, intended procedure and site: ??Yes Imaging: ??Pertinent imaging reviewed, correctly oriented and match to patient identifiers Lab/Diag test results: ??Pertinent lab/diag tests reviewed and match to patient identifiers Supplies, devices and special equipment are available: yes ?? Site/side marked: yes Indications: pleural effusion ?? Skin prepararion: ??Skin prepped with 2% chlorhexidine Anesthesia (see MAR for exact dosage) Anesthesia method: ??Local infiltration Local anesthetic: ??Lidocaine 1% Patient sedated: No ?? Placement location: ??Right lateral Ultrasound used for: site marking ?? Tube size (Citizen Of [place]): ??14 Tube type: ??Pigtail Tube connected to: ??Suction Drainage characteristics: ??Serous Suture material: ??0 silk Dressing: ??Impervious dressing Post-insertion x-ray findings: tube in good position ?? Patient tolerance: ??Patient tolerated the procedure well with no immediate complications Post Procedure Debrief: All guidewires, needles, sponges or other items are accounted for: yes ?? Any special post procedure monitoring, testing or other considerations: n/a ?? All specimens identified, labeled and matched to patient identification: yes ?? Responsible libertarian for transporting specimen(s) to lab determined: n/a ?? David Saab MD IN CLINIC/BEDSIDE ORDERABLES Final Result * eGFR (10/04/2023 2:47 PM MATHEMATICIAN RESEARCH) eGFR 82 >=60 mL/min/1. 73 m2 [facility] Comment: Interpretive Data Reference Interval Normal ?>/= [...] interpretive data was last reviewed 2021. Blood 10/04/2023 2:47 PM MATHEMATICIAN RESEARCH 10/04/2023 3:13 PM MATHEMATICIAN RESEARCH us Lisandra Harper MD LAB BLOOD ORDERABLES Final Result [facility] Department [place] [address] * (ABNORMAL) Basic metabolic panel (10/04/2023 2:47 PM MATHEMATICIAN RESEARCH) Sodium 132(L) 135 - 145 mmol/L [facility] Potassium, pl 5.4(H) 3.3 - 4.9 mmol/L [facility] Chloride 102 97 - 110 mmol/L [facility] CO2 20(L) 22 - 32 mmol/L [facility] Anion gap 10 2 - 15 mmol/L [facility] BUN 43(H) 6 - 25 mg/dL [facility] Creatinine 1.22 0.80 - 1.30 mg/dL [facility] Glucose 116 70 - 199 mg/dL [facility] Comment: Interpretive Data Fasting glucose >/= [...] interpretive data was last revised 2022. Calcium 8.5 8.5 - 10.3 mg/dL [facility] Blood 10/04/2023 2:47 PM MATHEMATICIAN RESEARCH 10/04/2023 3:13 PM MATHEMATICIAN RESEARCH us Lisandra Harper MD LAB BLOOD ORDERABLES Final Result [facility] Department [place] [address] * XR Chest 1 View (10/04/2023 2:11 PM MATHEMATICIAN RESEARCH) Anatomical Region Laterality Modality Body, Chest N/A Digital Radiogra phy 10/04/2023 3:11 PM MATHEMATICIAN RESEARCH Impressions 10/04/2023 4:06 PM MATHEMATICIAN RESEARCH Comparison is made to chest radiograph 10/03/2023 2:01 PM. ?? There has been interval placement of a right pigtail catheter. ??There are small lung volumes, improved from the prior exam. ??There is decreased now small posteriorly layering right pleural effusion. Small left pleural effusion. ??No pneumothorax. ??The cardiomediastinal silhouette is unchanged. ??There are numerous surgical clips seen in the abdomen. Dictated by: Sunil Macias MD The radiology attending physician has personally reviewed this study, and had reviewed and/or edited this written report and agrees with it. Electronically signed by: Dl Cabrera M.D. Narrative 10/04/2023 4:06 PM MATHEMATICIAN RESEARCH EXAMINATION: 1 view chest radiograph Procedure Note Dl Cabrera MD - 10/04/2023 EXAMINATION: 1 view chest radiograph IMPRESSION: Comparison is made to chest radiograph 10/03/2023 2:01 PM. There has been interval placement of a right pigtail catheter. There are small lung volumes, improved from the prior exam. There is decreased now small posteriorly layering right pleural effusion. Small left pleural effusion. No pneumothorax. The cardiomediastinal silhouette is unchanged. There are numerous surgical clips seen in the abdomen. Dictated by: Sunil Macias MD The radiology attending physician has personally reviewed this study, and had reviewed and/or edited this written report and agrees with it. Electronically signed by: Dl Cabrera M.D. us David Saab MD IMG XR PROCEDURES Final Resul t * Flow Leukemia/Lymphoma Fluid (10/04/2023 1:31 PM MATHEMATICIAN RESEARCH) Frazier Stain Test Completed [facility] Leukemia/Lymp josé manuel Result See separate Surgical Pathology report. [facility] Fluid 10/04/2023 1:31 PM MATHEMATICIAN RESEARCH 10/04/2023 3:11 PM MATHEMATICIAN RESEARCH Narrative [facility] - 10/05/2023 4:16 PM MATHEMATICIAN RESEARCH History of PTLD us Lisandra Harper MD LAB PATHOLOGY ORDERAB LES Final Result [facility] [place] [address] * Cytology (10/04/2023 1:24 PM MATHEMATICIAN RESEARCH) Fluid (Pleura (Cytology)) 10/04/2023 1:24 PM MATHEMATICIAN RESEARCH 10/04/2023 2:26 PM MATHEMATICIAN RESEARCH Narrative PATHOLOGY [facility] - 10/06/2023 2:17 PM MATHEMATICIAN RESEARCH EPIC results best viewed via link to PDF [facility] Yulisa Garcia Laboratory [place] [address] Note to Patients: This report may contain a detailed description of human tissue sent by a health care provider to the laboratory for pathologic evaluation. The content of this report is essential for diagnosis and may provide important critical findings. This information may be unfamiliar to patients to review without a medical professional present. It is advised that the patient review this report in the presence of a health care provider who can answer questions and explain the details. CYTOPATHOLOGY REPORT FINAL Patient Name: ?? BEKA LARES Gender: ??M : ??1995 (Age: 28) Address: ??[address], [place] ??[address] Hospital #: ??[id number] Taken:10/04/2023 Received:10/04/2023 Reported: 10/06/2023 Patient Type: [facility] Inpatient ?? Service: [facility] Location: [place] [address] Physician(s): ??Wendy Bonds MD PhD FINAL DIAGNOSIS A. ??Pleural fluid, right: ?- Negative for malignancy Comments The cell block confirms the cytologic diagnosis. /10/06/2023 11:21 By this signature, I attest that the above diagnosis is based upon my personal examination of the slides(and/or other material indicated in the diagnosis). Abdullahi West, DO Report Electronically Reviewed and Signed Out By ??Abdullahi West DO 10/06/2023 14:17:35 DANNY Evans (ASCP) Gross Description A. ??Pleural fluid, right: ??50 ml dark yellow fluid - 1 Pap stained ThinPrep, 1 Pap stained cytospin, 1 Diff-Quik stained cytospin, and cell block. 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 REPORT IMAGES AND SCANNED DOCUMENTS, IF INCLUDED, ONLY VIEWABLE IN PDF VERSION OF REPORT The performance characteristics of some immunohistochemical stains, in-situ hybridization and fluorescence in-situ hybridization tests and immunophenotyping by flow cytometry cited in this report (if any) were determined by the Surgical Pathology and Flow Cytometry Departments at [facility] as part of an ongoing quality lead program and in compliance with federally mandated regulations drawn from the Clinical Laboratory Improvement Act of 1988 (CLIA '88). ??Some of these tests rely on the use of analyte specific reagents and are subject to specific labeling requirements by the US Food and Drug Administration. ??Such diagnostic tests may only be performed in a facility that is certified by the Department of Health and Human Services as a high complexity laboratory under CLIA '88. ??The FDA has determined that such clearance or approval is not necessary. ??This test is used for clinical purposes. ??It should not be regarded as investigational or for research. ??Nevertheless, federal rules concerning the medical use of analyte specific reagents require that the following disclaimer be attached to the report: ??This test was developed and its performance characteristics determined by the Surgical Pathology and Flow Cytometry Departments of [facility]. ??It has not been cleared or approved by the U. S. Food and Drug Administration. Lisandra Harper MD LAB CYTOLOGY ORDERABL ES Final Result Performing Organization Address [facility]/ZIP Co de Phone Number PATHOLOGY [facility] 3rd Floor [place], [place] [phone] * Flow Leukemia/Lymphoma Fluid (10/04/2023 12:46 PM MATHEMATICIAN RESEARCH) Frazier Stain Test Completed [facility] Leukemia/Lymp josé manuel Result See separate Surgical Pathology report. [facility] Fluid 10/04/2023 12:4 6 PM MATHEMATICIAN RESEARCH 10/04/2023 12:46 PM MATHEMATICIAN RESEARCH Narrative [facility] - 10/05/2023 4:19 PM MATHEMATICIAN RESEARCH ADD ON to previous thora sample Lisandra Harper MD LAB PATHOLOGY ORDERAB LES Final Result Performing Organization Address [place] [facility] de Phone Number [facility] Department [place] [address] * Microbiology Courtesy Callback Blood (10/04/2023 11:58 AM MATHEMATICIAN RESEARCH) Pathologist [facility] TestName AsperGalacto Ag [facility] Date Notified [id number] [facility] Time Notified 1404 [facility] Called/Read Back Boston Hager MD [facility] Called By RKLily [facility] Blood 10/04/2023 11:5 8 AM MATHEMATICIAN RESEARCH 10/07/2023 2:04 PM MATHEMATICIAN RESEARCH Lisandra Harper MD LAB MICROBIOLOGY - GE NERAL ORDERABLES Final Result Performing Organization Address [facility] Co de Phone Number [facility] Department [place] [address] * (ABNORMAL) Aspergillus galactomannan antigen Blood (10/04/2023 11:58 AM MATHEMATICIAN RESEARCH) Pathologist [facility] Aspergillus galactomannan Ag 0.670(A) <0.5 Index [facility] Comment: A single positive result should be interpreted with caution and correlated with repeat testing on a new serum specimen, clinical findings and radiologic evidence. ?? Serial monitoring of galactomannan levels is recommended for patients at high risk for invasive aspergillosis (e.g., HSCT recipients, patients with hematologic malignancy, etc.), and may be used to screen for the disease and/or monitor disease progression. Elevated galactomannan levels have been reported in cases of other fungal infections, infusion or ingestion of gluconate containing products, and in the presence of certain antibiotics (Note: piperacillin/tazobactam is no longer considered a common cause of cross-reactivity for this assay). Refer to https://www.idsociety.org/Organism/#Fungi for the most recent Practice Guidelines for Diagnosis and Management of Aspergillosis. ADDITIONAL INFORMATION This is a qualitative test and the resulted index value is not indicative of disease severity. ??Serial testing is recommended for patients at high risk for invasive aspergillosis. This assay was performed using the FDA-cleared [employer] Plat[employer] Aspergillus Galactomannan EIA. Test Performed by: [place] [address] Circular Sawyer Helper: Jason Sandy M.D. Ph.D.; CLIA# [id number] Blood 10/04/2023 11:5 8 AM MATHEMATICIAN RESEARCH 10/04/2023 1:02 PM MATHEMATICIAN RESEARCH Lisandra Harper MD LAB MICROBIOLOGY - [facility] ORDERABLES Final Result [facility] [place] [address] * Coccidioides antibody screen w/reflex Blood (10/04/2023 11:58 AM MATHEMATICIAN RESEARCH) [facility] Coccidioides ab screen, ser Negative Negative [facility] Comment: Repeat testing on a new sample in 2-3 weeks if clinically indicated. ADDITIONAL INFORMATION This test has been modified from the reading coach's instructions. Its performance characteristics were determined by [facility] in a manner consistent with CLIA requirements. This test has not been cleared or approved by the U.S. Food and Drug Administration. Test Performed by: [facility] [address] [place] [address] Circular Sawyer Helper: Jason Sandy M.D. Ph.D.; CLIA# [id number] Blood 10/04/2023 11:5 8 AM MATHEMATICIAN RESEARCH 10/04/2023 12:51 PM MATHEMATICIAN RESEARCH Lisandra Harper MD LAB MICROBIOLOGY - JAB Broadband NERAL ORDERABLES Final Result Performing Organization Address [facility] de Phone Number [facility] [place] [address] * Cryptococcal Antigen, Serum Blood (10/04/2023 11:58 AM MATHEMATICIAN RESEARCH) Cryptococcus ag, Serum Negative Negative [facility] Comment: The cryptococcal antigen test was performed [...] Current interpretive data last revised 2018. Blood 10/04/2023 11:5 8 AM MATHEMATICIAN RESEARCH 10/04/2023 1:02 PM MATHEMATICIAN RESEARCH Lisandra Harper MD LAB MICROBIOLOGY - JAB Broadband NERAL ORDERABLES Final Result Performing Organization Address City/[facility] Co de Phone Number [facility] [place] [address] * Histoplasma Antibody Blood (10/04/2023 11:58 AM MATHEMATICIAN RESEARCH) Histoplasma Ab, mycelial CF Negative Negative [facility] Histoplasma Ab, yeast CF Negative Negative [facility] Histoplasma Ab, Immunodiffusion Negative Negative [facility] Comment: A negative complement fixation and immunodiffusion (CF/ID) result does not exclude the diagnosis of histoplasmosis. ?? Repeat testing by CF/ID in 1-2 weeks if clinically indicated. Test Performed by: [place] [address] [employer] Helper: Jason Sandy M.D. Ph.D.; CLIA# [id number] Blood 10/04/2023 11:5 8 AM MATHEMATICIAN RESEARCH 10/04/2023 1:28 PM MATHEMATICIAN RESEARCH Lisandra Harper MD LAB MICROBIOLOGY - JAB Broadband NERAL ORDERABLES Final Result Performing Organization Address [facility] Co de Phone Number [facility] [address] [place] [address] * Blastomyces antibody, EIA, serum Blood (10/04/2023 11:58 AM MATHEMATICIAN RESEARCH) Pathologist [facility] Blastomyces Antibody Negative Negative [facility] Comment: A single negative result does not exclude the diagnosis of blastomycosis. ??Repeat testing on a new sample in 7-14 days if clinically indicated. Test Performed by: [place] [address] Circ[employer] Sawyer Helper: Jason Sandy M.D. Ph.D.; CLIA# [id number] Blood 10/04/2023 11:5 8 AM MATHEMATICIAN RESEARCH 10/04/2023 12:47 PM MATHEMATICIAN RESEARCH Lisandra Harper MD LAB MICROBIOLOGY - GE NERAL ORDERABLES Final Result Performing Organization Address City/[facility]/ZIP Co de Phone Number [facility] [address] [place] [address] * eGFR (10/04/2023 6:21 AM MATHEMATICIAN RESEARCH) eGFR 80 >=60 mL/min/1. 73 m2 [facility] Comment: Interpretive Data Reference Interval Normal ?>/= [...] interpretive data was last reviewed 2021. Blood 10/04/2023 6:21 AM MATHEMATICIAN RESEARCH 10/04/2023 6:48 AM MATHEMATICIAN RESEARCH us Esequiel Maldonado MD LAB BLOOD ORDERABLES Final Res ult [facility] [place] [address] * (ABNORMAL) Differential, auto (10/04/2023 6:21 AM MATHEMATICIAN RESEARCH) Neutrophil abs 9.1(H) 1.7 - 6.5 K/cumm [facility] Imm gran abs 0.3(H) 0.0 - 0.1 K/cumm [facility] Lymphocyte abs 1.6 0.8 - 3.3 K/cumm [facility] Monocyte abs 4.0(H) 0.2 - 0.8 K/cumm [facility] Eosinophil abs 0.1 0.0 - 0.5 K/cumm [facility] Basophil abs 0.1 0.0 - 0.1 K/cumm [facility] Neutrophil pct 59.6 % [facility] Comment: Consistent with previous result Interpretive Data Percent cell count reference ranges are not reported, since discordance with absolute values may lead to misinterpretation of CBC data. Current Interpretive Data was last revised on 2018. Imm gran pct 2.1 % [facility] Comment: Interpretive Data Percent cell count reference ranges are not reported, since discordance with absolute values may lead to misinterpretation of CBC data. Current Interpretive Data was last revised on 2018. Lymphocyte pct 10.7 % [facility] Comment: Interpretive Data Percent cell count reference ranges are not reported, since discordance with absolute values may lead to misinterpretation of CBC data. Current Interpretive Data was last revised on 2018. Monocyte pct 26.0 % [facility] Comment: Interpretive Data Percent cell count reference ranges are not reported, since discordance with absolute values may lead to misinterpretation of CBC data. Current Interpretive Data was last revised on 2018. Eosinophil pct 0.9 % [facility] Comment: Interpretive Data Percent cell count reference ranges are not reported, since discordance with absolute values may lead to misinterpretation of CBC data. Current Interpretive Data was last revised on 2018. Basophil pct 0.7 % [facility] Comment: Interpretive Data Percent cell count reference ranges are not reported, since discordance with absolute values may lead to misinterpretation of CBC data. Current Interpretive Data was last revised on 2018. Blood 10/04/2023 6:21 AM MATHEMATICIAN RESEARCH 10/04/2023 6:48 AM MATHEMATICIAN RESEARCH us Esequiel Maldonado MD LAB BLOOD ORDERABLES Final Res ult [facility] [place] [address] * (ABNORMAL) Cytomegalovirus (CMV) DNA PCR, quantitative Blood (10/04/2023 6:21 AM MATHEMATICIAN RESEARCH) [facility] CMV DNA Detected( A) [facility] Comment: Interpretive Data: The quantifiable range of this assay is 34 IUnits/mL to 10,000,000 IUnits/mL (1.53 log IUnits/mL to 7.0 log IUnits/mL). Testing was performed by the NIA 6800 CMV Test ([employer] Testing performed at [facility]. Current interpretive data was last revised on 2021. CMV DNA IU/mL 121 IUnits/mL [facility] CMV DNA log IU/mL 2.08 log IUnits/mL [facility] Blood 10/04/2023 6:21 AM MATHEMATICIAN RESEARCH 10/04/2023 6:54 AM MATHEMATICIAN RESEARCH us Carlton Bhandari MD LAB MICROBIOLOGY - GENERAL OR DERABLES Final Result [facility] [place] [address] * (ABNORMAL) Phosphorus (10/04/2023 6:21 AM MATHEMATICIAN RESEARCH) [facility] Phosphorus, pl 5.2(H) 2.3 - 4.5 mg/dL [facility] Blood 10/04/2023 6:21 AM MATHEMATICIAN RESEARCH 10/04/2023 6:48 AM MATHEMATICIAN RESEARCH us Esequiel Maldonado MD LAB BLOOD ORDERABLES [place] [address] * Magnesium (10/04/2023 6:21 AM MATHEMATICIAN RESEARCH) [facility] Magnesium 1.8 1.4 - 2.5 mg/dL [facility] Blood 10/04/2023 6:21 AM MATHEMATICIAN RESEARCH 10/04/2023 6:48 AM MATHEMATICIAN RESEARCH us Esequiel Maldonado MD LAB BLOOD ORDERABLES Final Res ult Performing Organization Address City/[facility]/ZIP Co de Phone Number [facility] Department [place] [address] * (ABNORMAL) Basic metabolic panel (10/04/2023 6:21 AM MATHEMATICIAN RESEARCH) Sodium 132(L) 135 - 145 mmol/L [facility] Potassium, pl 5.4(H) 3.3 - 4.9 mmol/L [facility] Chloride 102 97 - 110 mmol/L [facility] CO2 21(L) 22 - 32 mmol/L [facility] Anion gap 9 2 - 15 mmol/L [facility] BUN 39(H) 6 - 25 mg/dL [facility] Creatinine 1.24 0.80 - 1.30 mg/dL [facility] Glucose 85 70 - 199 mg/dL [facility] Comment: Interpretive Data Fasting glucose >/= [...] interpretive data was last revised 2022. Calcium 8.5 8.5 - 10.3 mg/dL [facility] Blood 10/04/2023 6:21 AM MATHEMATICIAN RESEARCH 10/04/2023 6:48 AM MATHEMATICIAN RESEARCH Esequiel Maldonado MD LAB BLOOD ORDERABLES Final Res ult Performing Organization Address City/[facility]/ZIP Co de Phone Number [facility] [place] [address] * (ABNORMAL) CBC with auto differential (10/04/2023 6:21 AM MATHEMATICIAN RESEARCH) [facility] WBC 15.2(H) 3.8 - 9.9 K/cumm [facility] Hgb 10.6(L) 13.0 - 17.5 g/dL [facility] Comment: Result may be inaccurate due to increased plasma turbidity. Consider redraw. Interpretive Data A reference range for this assay has not been established for patients with an unknown legal sex. Please refer to the laboratory test catalog for established sex-specific reference intervals. Current interpretive data was last revised on 2023. Hct 28.0(L) 38.9 - 50.3 % [facility] Comment: Interpretive Data A reference range for this assay has not been established for patients with an unknown legal sex. Please refer to the laboratory test catalog for established sex-specific reference intervals. Current interpretive data was last revised on 2023. Plt 217 150 - 400 K/cumm [facility] MPV 10.7 9.1 - 12.3 fL [facility] RBC 2.73(L) 4.30 - 5.80 M/cumm [facility] Comment: Interpretive Data A reference range for this assay has not been established for patients with an unknown legal sex. Please refer to the laboratory test catalog for established sex-specific reference intervals. Current interpretive data was last revised on 2023. MCV 102.6(H) 81.3 - 96.4 fL [facility] MCH 38.8(H) 27.1 - 33.3 pg [facility] Comment:Result may be inaccu rate due to increased plasma turbidity. Consider redraw. MCHC 37.9(H) 32.3 - 35.7 g/dL [facility] Comment:Result may be inaccu rate due to increased plasma turbidity. Consider redraw. RDW CV 16.6(H) 11.1 - 14.9 % [facility] RDW SD 62.4(H) 35.7 - 48.1 fL [facility] NRBC abs 0.00 0.00 - 0.01 K/cumm [facility] Blood 10/04/2023 6:21 AM MATHEMATICIAN RESEARCH 10/04/2023 6:48 AM MATHEMATICIAN RESEARCH Esequiel Maldonado MD LAB BLOOD ORDERABLES Final Res ult Performing Organization Address [facility] de Phone Number [facility] [place] [address] * Tacrolimus level trough (10/04/2023 6:21 AM MATHEMATICIAN RESEARCH) Tacrolimus trough 6.7 ng/mL [facility] Comment: Interpretive Data Testing performed by liquid chromatography-tandem mass spectrometry. ??Therapeutic concentrations vary depending on type of transplanted organ and time elapsed since transplant. ??Typical trough concentrations range from 5-15 ng/mL. ??This test was developed and its performance characteristics determined by the [facility] consistent with CLIA requirements. ??This test has not been cleared or approved by the US Food and Drug administration. ??Current interpretive data last reviewed 2020. Blood 10/04/2023 6:21 AM MATHEMATICIAN RESEARCH 10/04/2023 6:48 AM MATHEMATICIAN RESEARCH Yulisa Joy MD LAB BLOOD ORDERABLES F inal Result Performing Organization Address [facility] de Phone Number [facility] [place] [address] * Surgical pathology (10/04/2023 12:00 AM MATHEMATICIAN RESEARCH) Fluid, NOS 10/04/2023 10/04/2023 Narrative 10/06/2023 10:49 AM MATHEMATICIAN RESEARCH EPIC results best viewed via link to PDF [facility] Yulisa Garcia Laboratory [place] [address] Note to Patients: This report may contain a detailed description of human tissue sent by a health care provider to the laboratory for pathologic evaluation. The content of this report is essential for diagnosis and may provide important critical findings. This information may be unfamiliar to patients to review without a medical professional present. It is advised that the patient review this report in the presence of a health care provider who can answer questions and explain the details. SURGICAL PATHOLOGY REPORT FINAL Patient Name: ?? BEKA LARES Gender: ??M : ??1995 (Age: 28) Address: ??[address] [place] [address] ??[id number] Hospital #: ??[id number] Taken:10/04/2023 Received:10/04/2023 Reported: 10/06/2023 Patient Type: [facility] Inpatient ?? Service: [facility] Location: [place] [address] Physician(s): ??Lisandra Harper M.D. Diagnosis: Fluid for flow cytometry: ? - ??No clonal B-cell population identified by flow cytometry ? - See comment /10/05/2023 15:27 By this signature, I attest that the above diagnosis is based upon my personal examination of the slides(and/or other material indicated in the diagnosis). Iliana Cisneros M.D., Ph.D. Report Electronically Reviewed and Signed Out By ??Iliana Cisneros M.D., Ph.D. 10/06/2023 10:49:56 Diagnosis Comment Correlation with concurrent cytology specimen ([id number]) is needed for full evaluation. A malignant process cannot be excluded solely on the basis of this assay. Microscopic Description and Comment: Specimen quality: Adequate Flow cytometry does not reveal a clonal B-cell population. B-cells show a polytypic kappa and lambda light chain expression pattern. No significant CD45 dim population is identified. CD34+ blasts are not increased. A Frazier-Giemsa stained cytospin from the flow cytometry specimen was examined for internal coding quality coordinator purposes. Flow cytometry was performed using antibodies to the following cellular antigens: CD45, CD34, CD19, CD20, Underwood, Lambda, CD10, CD5, CD200, CD38. Total antigens analyzed: 10 Corinna Engle, D.O. 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 He is admitted to the ICU for acute respiratory failure. Specimen(s) Received: A: Fluid for flow cytometry Gross Description: { Not Entered } Gross Pathologist: No pathologist assigned By this signature, I attest that the above diagnosis is based upon my personal examination of the slides(and/or other material). Addenda/Procedures The performance characteristics of some immunohistochemical stains, fluorescence in-situ hybridization tests and immunophenotyping by flow cytometry cited in this report (if any) were determined by the Surgical Pathology and Flow Cytometry Departments at [facility] as part of an ongoing quality lead program and in compliance with federally mandated regulations drawn from the Clinical Laboratory Improvement Act of 1988 (CLIA '88). ??Some of these tests rely on the use of analyte specific reagents and are subject to specific labeling requirements by the US Food and Drug Administration. ??Such diagnostic tests may only be performed in a facility that is certified by the Department of Health and Human Services as a high complexity laboratory under CLIA '88. ??The FDA has determined that such clearance or approval is not necessary. ??This test is used for clinical purposes. ??It should not be regarded as investigational or for research. ??Nevertheless, federal rules concerning the medical use of analyte specific reagents require that the following disclaimer be attached to the report: This test was developed and its performance characteristics determined by the Surgical Pathology and Flow Cytometry Departments of [facility]. ??It has not been cleared or approved by the U. S. Food and Drug Administration. IMAGES AND SCANNED DOCUMENTS, IF INCLUDED, ONLY VIEWABLE IN PDF VERSION OF REPORT us Lisandra Harper MD LAB PATHOLOGY ORDERAB LES Final Result * (ABNORMAL) POCT glucose (10/03/2023 10:12 PM MATHEMATICIAN RESEARCH) Glucose, POC 382(H) 70 - 199 mg/dL [facility] Blood 10/03/2023 10:1 2 PM MATHEMATICIAN RESEARCH 10/03/2023 10:12 PM MATHEMATICIAN RESEARCH Carlton Bhandari MD LAB POCT ORDERABLES - DEVICE Final Result [facility] [place] [address] * (ABNORMAL) Manual Differential (10/03/2023 10:06 PM MATHEMATICIAN RESEARCH) Differential Manual [facility] Cells Counted 119 [facility] Neutrophil abs 9.7(H) 1.7 - 6.5 K/cumm [facility] Imm gran abs 0.2(H) 0.0 - 0.1 K/cumm [facility] Lymphocyte abs 1.4 0.8 - 3.3 K/cumm [facility] Monocyte abs 3.1(H) 0.2 - 0.8 K/cumm [facility] Eosinophil abs 0.1 0.0 - 0.5 K/cumm [facility] Basophil abs 0.2(H) 0.0 - 0.1 K/cumm [facility] Neutrophil pct 65.6 % [facility] Comment: Interpretive Data Percent cell count reference ranges are not reported, since discordance with absolute values may lead to misinterpretation of CBC data. Current Interpretive Data was last revised on 2018. Lymphocyte pct 9.2 % [facility] Comment: Interpretive Data Percent cell count reference ranges are not reported, since discordance with absolute values may lead to misinterpretation of CBC data. Current Interpretive Data was last revised on 2018. Monocyte pct 21.0 % [facility] Comment: Interpretive Data Percent cell count reference ranges are not reported, since discordance with absolute values may lead to misinterpretation of CBC data. Current Interpretive Data was last revised on 2018. Eosinophil pct 0.8 % [facility] Comment: Interpretive Data Percent cell count reference ranges are not reported, since discordance with absolute values may lead to misinterpretation of CBC data. Current Interpretive Data was last revised on 2018. Basophil pct 1.7 % [facility] Comment: Interpretive Data Percent cell count reference ranges are not reported, since discordance with absolute values may lead to misinterpretation of CBC data. Current Interpretive Data was last revised on 2018. Metamyelocyte pct 1.7 % [facility] Blood 10/03/2023 10:0 6 PM MATHEMATICIAN RESEARCH 10/03/2023 10:28 PM MATHEMATICIAN RESEARCH us Esequiel Maldonado MD LAB BLOOD ORDERABLES Final Res ult Performing Organization Address [facility] Co de Phone Number [facility] Department [place] [address] * eGFR (10/03/2023 10:06 PM MATHEMATICIAN RESEARCH) eGFR 90 >=60 mL/min/1. 73 m2 [facility] Comment: Interpretive Data Reference Interval Normal ?>/= [...] interpretive data was last reviewed 2021. Blood 10/03/2023 10:0 6 PM MATHEMATICIAN RESEARCH 10/03/2023 10:21 PM MATHEMATICIAN RESEARCH us Esequiel Maldonado MD LAB BLOOD ORDERABLES Final Res ult Performing Organization Address [facility]/ZIP Co de Phone Number [facility] Department [place] [address] * (ABNORMAL) CBC with auto differential (10/03/2023 10:06 PM MATHEMATICIAN RESEARCH) WBC 14.8(H) 3.8 - 9.9 K/cumm [facility] Hgb 11.4(L) 13.0 - 17.5 g/dL [facility] Comment: Result may be inaccurate due to increased plasma turbidity. Consider redraw. Interpretive Data A reference range for this assay has not been established for patients with an unknown legal sex. Please refer to the laboratory test catalog for established sex-specific reference intervals. Current interpretive data was last revised on 2023. Hct 30.0(L) 38.9 - 50.3 % [facility] Comment: Interpretive Data A reference range for this assay has not been established for patients with an unknown legal sex. Please refer to the laboratory test catalog for established sex-specific reference intervals. Current interpretive data was last revised on 2023. Plt 223 150 - 400 K/cumm [facility] MPV 10.9 9.1 - 12.3 fL [facility] RBC 2.88(L) 4.30 - 5.80 M/cumm [facility] Comment: Interpretive Data A reference range for this assay has not been established for patients with an unknown legal sex. Please refer to the laboratory test catalog for established sex-specific reference intervals. Current interpretive data was last revised on 2023. MCV 104.2(H) 81.3 - 96.4 fL [facility] MCH 39.6(H) 27.1 - 33.3 pg [facility] Comment:Result may be inaccu rate due to increased plasma turbidity. Consider redraw. MCHC 38.0(H) 32.3 - 35.7 g/dL [facility] Comment:Result may be inaccu rate due to increased plasma turbidity. Consider redraw. RDW CV 16.5(H) 11.1 - 14.9 % [facility] RDW SD 62.8(H) 35.7 - 48.1 fL [facility] NRBC abs 0.00 0.00 - 0.01 K/cumm [facility] Blood 10/03/2023 10:0 6 PM MATHEMATICIAN RESEARCH 10/03/2023 10:22 PM MATHEMATICIAN RESEARCH Esequiel Maldonado MD LAB BLOOD ORDERABLES Final Res ult Performing Organization Address [facility] Co de Phone Number [facility] [place] [address] * Lactate (10/03/2023 10:06 PM MATHEMATICIAN RESEARCH) Lactate 1.1 0.7 - 2.0 mmol/L [facility] Blood 10/03/2023 10:0 6 PM MATHEMATICIAN RESEARCH 10/03/2023 10:22 PM MATHEMATICIAN RESEARCH Esequiel Maldonado MD LAB BLOOD ORDERABLES Final Res ult Performing Organization Address [facility] Co de Phone Number [facility] Department [place] [address] * Phosphorus (10/03/2023 10:06 PM MATHEMATICIAN RESEARCH) Phosphorus, pl 4.5 2.3 - 4.5 mg/dL [facility] Blood 10/03/2023 10:0 6 PM MATHEMATICIAN RESEARCH 10/03/2023 10:21 PM MATHEMATICIAN RESEARCH Esequiel Maldonado MD LAB BLOOD ORDERABLES Final Res ult Performing Organization Address [facility] Co de Phone Number [facility] [place] [address] * Magnesium (10/03/2023 10:06 PM MATHEMATICIAN RESEARCH) Magnesium 1.8 1.4 - 2.5 mg/dL [facility] Blood 10/03/2023 10:0 6 PM MATHEMATICIAN RESEARCH 10/03/2023 10:21 PM MATHEMATICIAN RESEARCH us Esequiel Maldonado MD LAB BLOOD ORDERABLES Final Res ult [facility] Department [place] [address] * (ABNORMAL) Comprehensive metabolic panel (10/03/2023 10:06 PM MATHEMATICIAN RESEARCH) Sodium 131(L) 135 - 145 mmol/L [facility] Potassium, pl 5.4(H) 3.3 - 4.9 mmol/L [facility] Chloride 102 97 - 110 mmol/L [facility] CO2 21(L) 22 - 32 mmol/L [facility] Anion gap 8 2 - 15 mmol/L [facility] BUN 34(H) 6 - 25 mg/dL [facility] Creatinine 1.13 0.80 - 1.30 mg/dL [facility] Glucose 93 70 - 199 mg/dL [facility] Comment: Interpretive Data Fasting glucose >/= [...] interpretive data was last revised 2022. Calcium 8.5 8.5 - 10.3 mg/dL [facility] Bilirubin, total 6.1(H) 0.1 - 1.2 mg/dL [facility] Protein, pl 5.0(L) 6.5 - 8.5 g/dL [facility] Albumin 2.8(L) 3.5 - 5.0 g/dL [facility] Alk phos 182(H) 40 - 130 Units/L [facility] ALT 30 7 - 55 Units/L [facility] AST 36 10 - 50 Units/L [facility] Blood 10/03/2023 10:0 6 PM MATHEMATICIAN RESEARCH 10/03/2023 10:21 PM MATHEMATICIAN RESEARCH us Esequiel Maldonado MD LAB BLOOD ORDERABLES Final Res ult [facility] [place] [address] * Infection Prevention MRSA Only (Staphylococcus aureus) Culture Nasal (10/03/2023 10:06 PM MATHEMATICIAN RESEARCH) Report Final Report: Negative [facility] Nasal 10/03/2023 10:0 6 PM MATHEMATICIAN RESEARCH 10/03/2023 10:18 PM MATHEMATICIAN RESEARCH Narrative [facility] - 10/05/2023 7:35 AM MATHEMATICIAN RESEARCH Testing performed by [facility] Microbiology Laboratory ([phone]). us Esequiel Maldonado MD LAB MICROBIOLOGY - GENERAL ORD ERABLES Final Result Performing Organization Address City/[facility]/ZIP Co de Phone Number [facility] [place] [address] * ECG 12 lead (10/03/2023 9:46 PM MATHEMATICIAN RESEARCH) Ventricular Rate EKG/Min 119 BPM [facility] Atrial Rate 119 BPM [facility] CA-Interval (MSEC) 164 ms [facility] QRS-Interval (MSEC) 80 ms [facility] QT-Interval (MSEC) 306 ms [facility] QTc 430 ms [facility] P [place] 52 degrees [facility] R [place] -7 degrees [facility] T [place] 8 degrees [facility] Diagnosis Sinus tachycardia Minimal voltage criteria for LVH, may be normal variant Borderline ECG When compared with ECG of 31-AUG-2023 15:15, Vent. rate has increased BY ??45 BPM Confirmed by LANDRY FERNANDEZ M.D ([id number]) on 10/05/2023 9:41:53 PM [facility] 10/03/2023 9:46 PM MATHEMATICIAN RESEARCH 10/05/2023 9:41 PM MATHEMATICIAN RESEARCH us Esequiel Maldonado MD ECG ORDERABLES Final Result Performing Organization Address [facility] Co de Phone Number [facility] * ECG 12-LEAD (10/03/2023 9:42 PM MATHEMATICIAN RESEARCH) Narrative [facility] - 10/03/2023 9:42 PM MATHEMATICIAN RESEARCH Jez Nash MD ? 10/03/2023 ??9:42 PM ECG 12 lead Date/Time: 10/03/2023 9:42 PM Performed by: Jez Nash MD Authorized by: Dannie Callahan MD ?? Rate: ??ECG rate: ??124 ??ECG rate assessment: tachycardic ?? Rhythm: ??Rhythm: sinus tachycardia ?? Ectopy: ??Ectopy: none ?? QRS: ??QRS axis: ??Normal ??QRS intervals: ??Normal Conduction: ??Conduction: normal ?? ST segments: ??ST segments: ??Normal T waves: ??T waves: inverted ?Inverted: ??III, V1 and V2 Previous ECG: ??Previous ECG: ??Compared to current ??Date of previous ECG: ??08/31/2023 ??Similarity: ??No change Interpretation: ??Interpretation: No significant change ?? Recommended Follow-up: ??Recommended follow up: further workup in the ED ?? us Dannie Callahan MD ECG ORDERABLES Final Res ult Performing Organization Address [facility] Co de Phone Number [facility] * CA CRITICAL CARE ILL/INJURED PATIENT INIT 30-74 MIN (10/03/2023 7:45 PM MATHEMATICIAN RESEARCH) Narrative Hans Najera Jr., MD - 10/03/2023 7:45 PM MATHEMATICIAN RESEARCH Hans Najera Jr., MD ? 10/03/2023 ??7:48 PM Critical Care Performed by: Hans Najera Jr., MD Authorized by: Hans Najera Jr., MD ?? Critical care provider statement: As reflected in the history, physical exam, orders, notes, and/or MDM, I was personally present while the patient was critically ill and provided critical care services for 50 minutes, excluding time involved in separately billable procedures. ??Critical care was necessary to treat or prevent imminent or life-threatening deterioration of the following condition(s): ?? unstable vital signs ?? hypoxic respiratory failure, acute respiratory insufficiency and severe respiratory condition ?? pneumonia and severe infectious condition ??Critical care was time spent by me providing the following: ? continuous telemetry, continuous pulse oximetry, continuous capnography, interpretation of bedside monitors, imaging, and arterial/venous lab draws, serial bedside patient exams and resuscitation with fluids ?? frequent neurologic exams ?? Eval and reeval, d/w patient, d/w mother, reviewing workup, reviewing epic notes, documenting, discussion with pt goals of care, d/w hospitalist, admitting to ICU, starting and monitoring bipap ? supplemental oxygen, frequent bronchodilator treatments and non-invasive positive pressure ventilator management ?? review prior cultures/records, obtain appropriate cultures, empiric broad coverage antibiotics and review current gram stain results ?? I provided emergent necessary critical care [...] spent time documenting in the medical record. I admitted this patient to an Intensive Care unit (ICU) and discussed management with the admitting team. I admitted this patient to a continuous cardiac monitored bed. us Hans Najera Jr., MD IN CLINIC/BEDSIDE [facility] Final Result * (ABNORMAL) Blood gas, venous (10/03/2023 5:58 PM MATHEMATICIAN RESEARCH) [facility] pH, Venous 7.30(L) 7.32 - 7.43 [facility] PCO2, Venous 40 40 - 50 mmHg [facility] PO2, Venous 74 mmHg [facility] Comment: Interpretive Data No Reference Range Established Current Interpretive Data was last revised on 2018. HCO3 Venous, Calculated 20 20 - 30 mmol/L [facility] BE, venous -6 mmol/L [facility] Comment: Interpretive Data No Reference Range Established Current Interpretive Data was last revised on 2018. Blood 10/03/2023 5:58 PM MATHEMATICIAN RESEARCH 10/03/2023 6:02 PM MATHEMATICIAN RESEARCH us Hans Najera Jr., MD LAB BLOOD ORDERABLES F inal Result Performing Organization Address [facility]/ZIP Co de Phone Number [facility] [place] [address] * (ABNORMAL) Urinalysis reflex to microscopic and culture Urine (10/03/2023 5:25 PM MATHEMATICIAN RESEARCH) Color, ur Yellow Yellow [facility] Clarity, ur Clear Clear [facility] Specific gravity, ur 1.039(H) 1.003 - 1.030 [facility] pH, urine 6.0 [facility] Comment: Interpretive Data ? Urine pH is affected by diet, medications, systemic acid-base disturbances, and renal tubular function. ??pH may affect urinary stone formation. ??For example, urine pH below 6.0 may help reduce the tendency for calcium phosphate stones and pH greater than 6.0 may reduce the tendency for uric acid stone formation. Source: [facility] Current Interpretive Data was last revised on 2017 Protein, ur ql Trace Negative [facility] Glucose, ur ql Negative Negative [facility] Ketones, ur Trace Negative [facility] Bilirubin, ur 1+(A) Negative [facility] Blood, ur Negative Negative [facility] Urobilinogen, ur <2.0 <2.0 mg/dL [facility] Nitrite, ur Negative Negative [facility] Leukocyte esterase, ur Negative Negative [facility] UA reflex comment Reflex conditions for microscopic UA and culture not met. [facility] Urine 10/03/2023 5:25 PM MATHEMATICIAN RESEARCH 10/03/2023 5:31 PM MATHEMATICIAN RESEARCH us Yulisa Joy MD LAB MICROBIOLOGY - GEN ERAL ORDERABLES Final Result Performing Organization Address [facility]/ZIP Co de Phone Number [facility] [place] [address] * CT Chest W WO Contrast (10/03/2023 3:55 PM MATHEMATICIAN RESEARCH) Anatomical Region Laterality Modality Body N/A Computed Tomogra phy 10/03/2023 5:10 PM MATHEMATICIAN RESEARCH Impressions 10/03/2023 5:22 PM MATHEMATICIAN RESEARCH 1. ??No evidence of active extravasation within the chest. 2. ??Interval development of a partially loculated moderate right and trace left pleural effusions, which measure simple fluid in attenuation. ??Within the remaining aerated lungs, there is increased peribronchovascular consolidation and increased smooth interlobular septal line thickening, favored to represent worsening organizing pneumonia with superimposed pulmonary edema and possibly infectious pneumonia. 3. ??Stable extensive multistation lymphadenopathy of the chest and imaged abdomen in keeping with post transplant lymphoproliferative disorder. Dictated by: Guido Phillips MD The radiology attending physician has personally reviewed this study, and had reviewed and/or edited this written report and agrees with it. Electronically signed by: Robert Gilman M.D., MPH Narrative 10/03/2023 5:22 PM MATHEMATICIAN RESEARCH EXAMINATION: ??Computed tomography of the chest with and without intravenous contrast HISTORY: Status post liver transplant 03/20/2019, complicated by post transplant lymphoproliferative disorder with one week of productive cough and back pain TECHNIQUE: ??Transaxial computed tomographic images of the chest were obtained with and without intravenous contrast according to the standard protocol after the uneventful administration of 70 mL Opti-Ray 350 intravenous contrast. COMPARISON: CT 08/23/2023 FINDINGS: ?? Imaged thyroid is normal. 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 ??Thoracic aorta is normal in caliber. ??Stable moderate cardiomegaly. ??Calcified right hilar nodes likely sequela prior granulomatous disease. Interval development of a multilobulated, partially loculated moderate right pleural effusion, which measures simple fluid attenuation. ??There is associated subtotal collapse of the remainder of the right lung. ??No evidence of active arterial extravasation. Interval increase in size of a trace left pleural effusion with associated left basilar atelectasis. ??There are persistent areas of peribronchial vascular consolidation, increased in the remainder of the aerated lungs with debris within the distal bronchi. ??No pneumothorax. Esophagus is nondistended. Postsurgical changes of liver transplant no. ??Within the imaged abdomen, there is persistent lymphadenopathy throughout the retroperitoneum and mesentery, not significantly changed compared to prior examination, for reference a lymph node in the right upper quadrant mesentery measures 1.0 cm, previously 1.0 cm (series 12, image 260). ??Spleen is surgically absent. No suspicious osseous lesions. Procedure Note Robert Gilman MD - 10/03/2023 EXAMINATION: Computed tomography of the chest with and without intravenous contrast HISTORY: Status post liver transplant 03/20/2019, complicated by post transplant lymphoproliferative disorder with one week of productive cough and back pain TECHNIQUE: Transaxial computed tomographic images of the chest were obtained with and without intravenous contrast according to the standard protocol after the uneventful administration of 70 mL Opti-Ray 350 intravenous contrast. COMPARISON: CT 08/23/2023 FINDINGS: Imaged thyroid is normal. 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 Thoracic aorta is normal in caliber. Stable moderate cardiomegaly. Calcified right hilar nodes likely sequela prior granulomatous disease. Interval development of a multilobulated, partially loculated moderate right pleural effusion, which measures simple fluid attenuation. There is associated subtotal collapse of the remainder of the right lung. No evidence of active arterial extravasation. Interval increase in size of a trace left pleural effusion with associated left basilar atelectasis. There are persistent areas of peribronchial vascular consolidation, increased in the remainder of the aerated lungs with debris within the distal bronchi. No pneumothorax. Esophagus is nondistended. Postsurgical changes of liver transplant no. Within the imaged abdomen, there is persistent lymphadenopathy throughout the retroperitoneum and mesentery, not significantly changed compared to prior examination, for reference a lymph node in the right upper quadrant mesentery measures 1.0 cm, previously 1.0 cm (series 12, image 260). Spleen is surgically absent. No suspicious osseous lesions. IMPRESSION: 1. No evidence of active extravasation within the chest. 2. Interval development of a partially loculated moderate right and trace left pleural effusions, which measure simple fluid in attenuation. Within the remaining aerated lungs, there is increased peribronchovascular consolidation and increased smooth interlobular septal line thickening, favored to represent worsening organizing pneumonia with superimposed pulmonary edema and possibly infectious pneumonia. 3. Stable extensive multistation lymphadenopathy of the chest and imaged abdomen in keeping with post transplant lymphoproliferative disorder. Dictated by: Guido Phillips MD The radiology attending physician has personally reviewed this study, and had reviewed and/or edited this written report and agrees with it. Electronically signed by: Robert Gilman M.D., MPH Yulisa Joy MD IMG CT PROCEDURES [place] Result * XR Chest 1 View (10/03/2023 2:33 PM MATHEMATICIAN RESEARCH) Anatomical Region Laterality Modality Body, Chest N/A Computed Radiogr aphy 10/03/2023 3:21 PM MATHEMATICIAN RESEARCH Impressions 10/03/2023 4:13 PM MATHEMATICIAN RESEARCH Comparison is made to prior same-day chest radiographs. Surgical clips project over the right upper quadrant and left upper quadrant. ?? Interval development of right-sided pleural fluid collection. ??In the setting of recent thoracentesis, this may represent hemothorax versus reaccumulation of pleural effusion. ??CT chest recommended for further evaluation. ??Mild bibasilar patchy opacities, which may represent atelectasis and/or infectious/inflammatory process. ??No pneumothorax. The cardiomediastinal silhouette is partially obscured. Dictated by: Guido Xie M.D. The radiology attending physician has personally reviewed this study, and had reviewed and/or edited this written report and agrees with it. Electronically signed by: Robert Gilman M.D., MPH Narrative 10/03/2023 4:13 PM MATHEMATICIAN RESEARCH EXAMINATION: 1 view chest radiograph Procedure Note Robert Gilman MD - 10/03/2023 EXAMINATION: 1 view chest radiograph IMPRESSION: Comparison is made to prior same-day chest radiographs. Surgical clips project over the right upper quadrant and left upper quadrant. Interval development of right-sided pleural fluid collection. In the setting of recent thoracentesis, this may represent hemothorax versus reaccumulation of pleural effusion. CT chest recommended for further evaluation. Mild bibasilar patchy opacities, which may represent atelectasis and/or infectious/inflammatory process. No pneumothorax. The cardiomediastinal silhouette is partially obscured. Dictated by: Guido Xie M.D. The radiology attending physician has personally reviewed this study, and had reviewed and/or edited this written report and agrees with it. Electronically signed by: Robert Gilman M.D., MPH us Yulisa Joy MD IMG XR PROCEDURES [place] Result * MRI Spine Total Complete W WO Contrast (10/03/2023 1:59 PM MATHEMATICIAN RESEARCH) Anatomical Region Laterality Modality Spine N/A Magnetic Resonan ce 10/03/2023 2:38 PM MATHEMATICIAN RESEARCH Impressions 10/03/2023 2:59 PM MATHEMATICIAN RESEARCH 1. ??No evidence of discitis-osteomyelitis or spinal epidural abscess. 2. ??Incompletely imaged moderately sized loculated right pleural effusion. Dictated by: Alex Farooq M.D. The radiology attending physician has personally reviewed this study, and had reviewed and/or edited this written report and agrees with it. Electronically signed by: Ksenia Chan M.D. Narrative 10/03/2023 2:59 PM MATHEMATICIAN RESEARCH EXAMINATION: 1. Magnetic resonance imaging (MRI) of the cervical spine without and with contrast 2. Magnetic resonance imaging (MRI) of the thoracic spine without and with contrast 3. Magnetic resonance imaging (MRI) of the lumbar spine without and with contrast HISTORY: Back pain, concern for spinal epidural abscess. 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 TECHNIQUE: Multiplanar multi-weighted MRI of the cervical spine was performed without and with intravenous contrast using the standard protocol. Multiplanar multi-weighted MRI of the thoracic was performed without and with intravenous contrast using the standard protocol. Multiplanar multi-weighted MRI of the lumbar spine was performed without and with intravenous contrast using the standard protocol. Contrast information: 12 mL Gadoterate Meglumine COMPARISON: CT neck dated 08/23/2023 FINDINGS: There is no abnormal disc or marrow edema or endplate irregularity. No epidural fluid collection. ??No abnormal contrast enhancement in the spine. CERVICAL SPINE: There is mild upper cervical kyphosis centered at C3-C4. The craniocervical junction is normal. The visualized portions of the skull base and the posterior fossa are normal. There is motion artifact on the sagittal T2 SPACE sequences contributing to apparent hyperintensity within the cervical cord that is artifactual. ??The spinal cord demonstrates normal signal intensity on all sequences. Intervertebral disk heights are normal. ??No spinal canal or neuroforaminal stenosis. Susceptibility artifact in the right neck from metallic clips. ??Multiple rounded subcentimeter short axis cervical lymph nodes bilaterally. Normal signal voids are present in the vertebral arteries. THORACIC AND LUMBAR SPINE: There are 12 rib bearing thoracic vertebra. ??The L4 and L5 segments are sacralized. ??Alignment of the thoracolumbar spine is normal. ??No compression fractures. ??Normal spinal cord signal intensity. ??Conus medullaris terminates at T12-L1 and is normal. ??Mild L3-L4 degenerative disc disease with height loss and disc desiccation. ??No spinal canal or neuroforaminal stenosis. 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 ??Normal caliber aorta. Procedure Note Ksenia Chan MD - 10/03/2023 EXAMINATION: 1. Magnetic resonance imaging (MRI) of the cervical spine without and with contrast 2. Magnetic resonance imaging (MRI) of the thoracic spine without and with contrast 3. Magnetic resonance imaging (MRI) of the lumbar spine without and with contrast HISTORY: Back pain, concern for spinal epidural abscess. 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 TECHNIQUE: Multiplanar multi-weighted MRI of the cervical spine was performed without and with intravenous contrast using the standard protocol. Multiplanar multi-weighted MRI of the thoracic was performed without and with intravenous contrast using the standard protocol. Multiplanar multi-weighted MRI of the lumbar spine was performed without and with intravenous contrast using the standard protocol. Contrast information: 12 mL Gadoterate Meglumine COMPARISON: CT neck dated 08/23/2023 FINDINGS: There is no abnormal disc or marrow edema or endplate irregularity. No epidural fluid collection. No abnormal contrast enhancement in the spine. CERVICAL SPINE: There is mild upper cervical kyphosis centered at C3-C4. The craniocervical junction is normal. The visualized portions of the skull base and the posterior fossa are normal. There is motion artifact on the sagittal T2 SPACE sequences contributing to apparent hyperintensity within the cervical cord that is artifactual. The spinal cord demonstrates normal signal intensity on all sequences. Intervertebral disk heights are normal. No spinal canal or neuroforaminal stenosis. Susceptibility artifact in the right neck from metallic clips. Multiple rounded subcentimeter short axis cervical lymph nodes bilaterally. Normal signal voids are present in the vertebral arteries. THORACIC AND LUMBAR SPINE: There are 12 rib bearing thoracic vertebra. The L4 and L5 segments are sacralized. Alignment of the thoracolumbar spine is normal. No compression fractures. Normal spinal cord signal intensity. Conus medullaris terminates at T12-L1 and is normal. Mild L3-L4 degenerative disc disease with height loss and disc desiccation. No spinal canal or neuroforaminal stenosis. 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 Normal caliber aorta. IMPRESSION: 1. No evidence of discitis-osteomyelitis or spinal epidural abscess. 2. Incompletely imaged moderately sized loculated right pleural effusion. Dictated by: Alex Farooq M.D. The radiology attending physician has personally reviewed this study, and had reviewed and/or edited this written report and agrees with it. Electronically signed by: Ksenia Chan M.D. us Yulisa Joy MD IMG MRI PROCEDURES Fin al Result * XR Chest 1 View (10/03/2023 12:22 PM MATHEMATICIAN RESEARCH) Anatomical Region Laterality Modality Body, Chest N/A Computed Radiogr aphy 10/03/2023 1:28 PM MATHEMATICIAN RESEARCH Impressions 10/03/2023 4:12 PM MATHEMATICIAN RESEARCH Comparison is made with multiple same day chest radiographs. Surgical clips project over the right upper quadrant and left upper quadrant. ??Interval improvement in right-sided pleural effusion, now small. Redemonstrated right basilar airspace opacity, which may represent a combination of pneumonia and atelectasis in the appropriate clinical setting. ??No left pleural effusion. ??The left lung is clear. ??No pneumothorax. ??Unchanged cardiomediastinal silhouette. Dictated by: Guido Xie M.D. The radiology attending physician has personally reviewed this study, and had reviewed and/or edited this written report and agrees with it. Electronically signed by: Robert Gilman M.D., MPH Narrative 10/03/2023 4:12 PM MATHEMATICIAN RESEARCH EXAMINATION: 1 view chest radiograph Procedure Note Robert Gilman MD - 10/03/2023 EXAMINATION: 1 view chest radiograph IMPRESSION: Comparison is made with multiple same day chest radiographs. Surgical clips project over the right upper quadrant and left upper quadrant. Interval improvement in right-sided pleural effusion, now small. Redemonstrated right basilar airspace opacity, which may represent a combination of pneumonia and atelectasis in the appropriate clinical setting. No left pleural effusion. The left lung is clear. No pneumothorax. Unchanged cardiomediastinal silhouette. Dictated by: Guido Xie M.D. The radiology attending physician has personally reviewed this study, and had reviewed and/or edited this written report and agrees with it. Electronically signed by: Robert Gilman M.D., MPH us Yulisa Joy MD IMG XR PROCEDURES [place] Result * CA THORACENTESIS NEEDLE/CATH PLEURA W/IMAGING (10/03/2023 12:18 PM MATHEMATICIAN RESEARCH) Anatomical Region Laterality Modality Other Narrative 10/03/2023 12:18 PM MATHEMATICIAN RESEARCH Yulisa Joy MD ? 10/03/2023 12:19 PM Thoracentesis Date/Time: 10/03/2023 12:18 PM Performed by: Yulisa Joy MD Authorized by: Joni Cintron MD ?? [place] Protocol: RN Notified of Procedure: yes ?? 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 Consent form signed, dated, timed; matches correct patient, intended procedure and site: ??Yes Imaging: ??Pertinent imaging reviewed, correctly oriented and match to patient identifiers Lab/Diag test results: ??Pertinent lab/diag tests reviewed and match to patient identifiers Supplies, devices and special equipment are available: yes ?? Site/side marked: yes Immediately prior to the procedure a time out was called: a verbal verification by the procedure participants confirmed correct patient identity, correct site/side marked and visible (if applicable); agreement on procedure to be done; and correct patient positioning ?? Preparation: Patient was prepped and draped in usual sterile fashion ?? Patient position: ??Sitting Location: ??R posterior Puncture method: ??Udbj-[id number]-[id number] catheter Ultrasound guidance: yes ?? Ultrasound guidance used for: ??Pre-procedure marking Number of attempts: ??2 Drainage characteristics: ??Serosanguinous Chest x-ray performed: yes ?? Chest x-ray findings: ??Pleural effusion improved Patient tolerance of procedure: ??Tolerated well, no immediate complications Post Procedure Debrief: All guidewires, needles, sponges or other items are accounted for: yes ?? Any special post procedure monitoring, testing or other considerations: n/a ?? All specimens identified, labeled and matched to patient identification: yes ?? Responsible libertarian for transporting specimen(s) to lab determined: yes ?? us Joni Cintron MD PFT ORDERABLES Final Res ult * Surgical pathology (10/03/2023 12:00 PM MATHEMATICIAN RESEARCH) Fluid, NOS 10/03/2023 12:0 0 PM MATHEMATICIAN RESEARCH 10/04/2023 12:47 PM MATHEMATICIAN RESEARCH Narrative 10/06/2023 10:47 AM MATHEMATICIAN RESEARCH EPIC results best viewed via link to PDF [facility] Yulisa Garcia [facility] [place] [address] Note to Patients: This report may contain a detailed description of human tissue sent by a health care provider to the laboratory for pathologic evaluation. The content of this report is essential for diagnosis and may provide important critical findings. This information may be unfamiliar to patients to review without a medical professional present. It is advised that the patient review this report in the presence of a health care provider who can answer questions and explain the details. SURGICAL PATHOLOGY REPORT FINAL FLOW CYTOMETRY ONLY Patient Name: ?? BEKA LARES Gender: ??M : ??1995 (Age: 28) Address: ??[address] [place] [address] ??[id number] Hospital #: ??[id number] Taken:10/03/2023 Received:10/04/2023 Reported: 10/06/2023 Patient Type: [facility] Inpatient ?? Service: [facility] Location: [place] [address] Physician(s): ??Lisandra Harper M.D. Diagnosis: Fluid for flow cytometry: ? - No significant B-cell population identified by flow cytometry ? - See comment gp/10/05/2023 15:43 By this signature, I attest that the above diagnosis is based upon my personal examination of the slides(and/or other material indicated in the diagnosis). Iliana Cisneros M.D., Ph.D. Report Electronically Reviewed and Signed Out By ??Iliana Cisneros M.D., Ph.D. 10/06/2023 10:47:11 Diagnosis Comment Correlation with concurrent cytology specimen ([id number]) is needed for full evaluation. A malignant process cannot be excluded solely on the basis of this assay. Microscopic Description and Comment: Specimen quality: Adequate, RBC contamination Flow cytometry shows no significant B-cell population. Too few B-cells are present for meaningful clonality analysis. ?? No significant CD45 dim population is identified. CD34+ blasts are not increased. A Frazier-Giemsa stained cytospin from the flow cytometry specimen was examined for internal coding quality coordinator purposes. Flow cytometry was performed using antibodies to the following cellular antigens: CD45, CD34, CD19, CD20, [place], Lambda, CD10, CD5, CD200, CD38. Total antigens analyzed: 10 Corinna Engle D.O. History: This is a 28 year old male with a history of autoimmune hepatitis s/p liver transplant in 1998 complicated by PTLD. He is admitted to the ICU for acute respiratory failure. Specimen(s) Received: A: Fluid for flow cytometry Gross Description: { Not Entered } Gross Pathologist: No pathologist assigned By this signature, I attest that the above diagnosis is based upon my personal examination of the slides(and/or other material). Addenda/Procedures The performance characteristics of some immunohistochemical stains, fluorescence in-situ hybridization tests and immunophenotyping by flow cytometry cited in this report (if any) were determined by the Surgical Pathology and Flow Cytometry Departments at [facility] as part of an ongoing quality lead program and in compliance with federally mandated regulations drawn from the Clinical Laboratory Improvement Act of 1988 (CLIA '88). ??Some of these tests rely on the use of analyte specific reagents and are subject to specific labeling requirements by the US Food and Drug Administration. ??Such diagnostic tests may only be performed in a facility that is certified by the Department of Health and Human Services as a high complexity laboratory under CLIA '88. ??The FDA has determined that such clearance or approval is not necessary. ??This test is used for clinical purposes. ??It should not be regarded as investigational or for research. ??Nevertheless, federal rules concerning the medical use of analyte specific reagents require that the following disclaimer be attached to the report: This test was developed and its performance characteristics determined by the Surgical Pathology and Flow Cytometry Departments of [facility]. ??It has not been cleared or approved by the U. S. Food and Drug Administration. IMAGES AND SCANNED DOCUMENTS, IF INCLUDED, ONLY VIEWABLE IN PDF VERSION OF REPORT Lisandra Harper MD LAB PATHOLOGY ORDERAB LES Final Result * Triglycerides, body fluid (10/03/2023 12:00 PM MATHEMATICIAN RESEARCH) Specimen type, fld Pleural [facility] Triglycerides, fld 63 mg/dL [facility] Comment: The above specimen type is not cleared for use in this method by the FDA. Analytical characteristics have been validated by the performing laboratory. ??No reference range established - see interpretive comments. Interpretive Data Pleural - Triglycerides >110 mg/dL is indicative of chylothorax while triglyceride < 50 mg/dL rules out chylothorax. Peritoneal - Triglycerides > 200 mg/dL is indicative of chylous ascites. References: Pleural Fluid characteristics of Chylothorax. ?? [facility] Proceedings. ??December 2008; 84(2):129-133 Chris Textbook of Clinical Chemistry and Molecular Diagnostics, Sixth Edition. Elsevier Press. 2018. Chapter 43, Body Fluids, p. 925 [employer] Private Test directory, Body Fluid Reference Intervals and/or Interpretative Information. ??[email or web address] [facility]. Practical Guide to the Analytical Validation of Body Fluid Chemistry Testing. December 2012. 1-9. Current Interpretive Data was last revised 2019. Fluid 10/03/2023 12:0 0 PM MATHEMATICIAN RESEARCH 10/03/2023 2:28 PM MATHEMATICIAN RESEARCH us Lisandra Harper MD LAB BODY FLUIDS AND S TOOLS ORDERABLES Final Result [facility] One [facility] Department [place] [address] * Glucose, body fluid (10/03/2023 12:00 PM MATHEMATICIAN RESEARCH) Specimen type, fld Pleural [facility] Glucose, fld 99 mg/dL [facility] Comment: The above specimen type is not cleared for use in this method by the FDA. Analytical characteristics have been validated by the performing laboratory. ??No reference range established - see interpretive comments. Interpretive Data Pleural - Glucose < 60 mg/dL is indicative of complicated parapneumonic effusions. Peritoneal - normally equivalent to plasma glucose. ?? Will be less than concurrent plasma value in peritoneal bacterial infections. Pericardial - Fluid to serum glucose ratio < 0.3 is indicative of bacterial infection. Pancreatic cyst fluid - glucose concentrations have been shown to be a useful aid for distinguishing mucinous from non-mucinous cysts. Low glucose concentrations in a pancreatic cyst fluid (< 40-50 mg/dL) is suggestive of a mucinous cyst. However, body fluid glucose concentrations may be decreased due to increased cellular metabolism and should be interpreted in the context of blood glucose concentrations and in conjunction with other laboratory and clinical findings. References: Chris Textbook of Clinical Chemistry and Molecular Diagnostics, Sixth Edition. Elsevier Press. 2018. Chapter 43, Body Fluids, p. 925 Pleural effusions: Evaluation and Management. Rick Clin J Med 2005;72:854-72. [employer] Global Private Test directory, Body Fluid Reference Intervals and/or Interpretative Information. ??[email or web address] Caitlyn FRANKLIN et al. Pancreatic cyst fluid glucose: rapid, inexpensive, and accurate diagnosis of mucinous pancreatic cysts. Surgery 2018;163:600-5. Georgie DG et al. Differential diagnosis of pancreatic cysts: A prospective study on the role of intra-cystic glucose concentration. Digestive Liver Dis 2020;52:1026-32. Current Interpretive Data was last revised 2021. Fluid 10/03/2023 12:0 0 PM MATHEMATICIAN RESEARCH 10/03/2023 2:28 PM MATHEMATICIAN RESEARCH us Lisandra Talbot MD LAB BODY FLUIDS AND S TOOLS ORDERABLES Final Result [facility] [place] [address] * Cell Differential, Body Fluid (10/03/2023 12:00 PM MATHEMATICIAN RESEARCH) Total cells diffed 100 cells [facility] Comment: Interpretive Data Unless otherwise specified, the reference range and other method performance specifications have not been established for CSF/Body Fluid tests. ??The test results should be integrated into the clinical context for interpretation. Current interpretive data was last revised on 2019. Neutrophils, fld 19 % [facility] Lymphs, fld 51 % [facility] Monocyte, fld 16 % [facility] Macrophages, fld 14 % [facility] Fluid 10/03/2023 12:0 0 PM MATHEMATICIAN RESEARCH 10/03/2023 12:37 PM MATHEMATICIAN RESEARCH Yulisa Joy MD LAB BODY FLUIDS AND ST OOLS ORDERABLES Final Result Performing Organization Address [facility] Co de Phone Number [facility] Department [place] [address] * Aerobic and anaerobic culture and gram stain Pleural fluid Pleural cavity (10/03/2023 12:00 PM MATHEMATICIAN RESEARCH) Direct Specimen Exam Stain: Cytospin Gram stain shows: Few polymorphonuclear leukocytes seen. Red blood cells present. Other cellular material present. No organisms seen. [facility] Report Final Report: No growth [facility] Pleural fluid (Pleural cavity) 10/03/2023 12:00 PM MATHEMATICIAN RESEARCH 10/03/2023 12:14 PM MATHEMATICIAN RESEARCH Narrative [facility] - 10/09/2023 2:19 PM MATHEMATICIAN RESEARCH Testing performed by [facility] Microbiology Laboratory ([phone]) Specimens submitted from normally sterile body sites [...] interpretive data was last revised on 2019. Yulisa Joy MD LAB MICROBIOLOGY - GEN ERAL ORDERABLES Final Result Performing Organization Address [facility] Co de Phone Number [facility] Department [place] [address] * (ABNORMAL) Cell count with reflex to differential, body fluid (10/03/2023 12:00 PM MATHEMATICIAN RESEARCH) Specimen type, fld Pleural [facility] Color, fld Jany [facility] Clarity, fld Cloudy(A) Clear [facility] Nucleated cells, fld 631 /cumm [facility] Comment: Interpretive Data Unless otherwise specified, the reference range and other method performance specifications have not been established for CSF/Body Fluid tests. ??The test results should be integrated into the clinical context for interpretation. Current interpretive data was last revised on 2019. RBC, fld 7,878 /cumm [facility] Fluid 10/03/2023 12:0 0 PM MATHEMATICIAN RESEARCH 10/03/2023 12:37 PM MATHEMATICIAN RESEARCH Yulisa Joy MD LAB BODY FLUIDS AND ST OOLS ORDERABLES Final Result Performing Organization Address [facility] de Phone Number [facility] [place] [address] * Protein, body fluid (10/03/2023 12:00 PM MATHEMATICIAN RESEARCH) Specimen type, fld Pleural [facility] Protein, fld 3.3 g/dL [facility] Comment: The above specimen type is not cleared for use in this method by the FDA. Analytical characteristics have been validated by the performing laboratory. ??No reference range established - see interpretive comments. Interpretive Data Pleural and Pericardial Fluids - Ratio of fluid to serum protein > or = 0.5 is indicative of exudate and < 0.5 of transudate. ?? Peritoneal - Protein > or = 3.0 g/dL is indicative of exudates and < 3.0 g/dL of transudates. Reference: Chris Textbook of Clinical Chemistry and Molecular Diagnostics, Sixth Edition. Elsevier Press. 2018. Chapter 43, Body Fluids, p. 925 Current Interpretive Data was last revised 2019. Fluid 10/03/2023 12:0 0 PM MATHEMATICIAN RESEARCH 10/03/2023 12:37 PM MATHEMATICIAN RESEARCH Yulisa Joy MD LAB BODY FLUIDS AND ST OOLS ORDERABLES Final Result Performing Organization Address [facility] Co de Phone Number [facility] Department of [place] [address] * Lactate dehydrogenase, body fluid (10/03/2023 12:00 PM MATHEMATICIAN RESEARCH) Specimen type, fld Pleural [facility] LD, fld 306 Units/L [facility] Comment: The above specimen type is not cleared for use in this method by the FDA. Analytical characteristics have been validated by the performing laboratory. ??No reference range established - see interpretive comments. Interpretive Data Ratio of fluid to serum LD > or = 0.6 is indicative of exudate and < 0.6 of transudate. References: The Biochemistry of Body Fluids. ?? Association of Clinical Biochemists in [place]. August 2009; pp 1-36. Chris Textbook of Clinical Chemistry and Molecular Diagnostics, Sixth Edition. Elsevier Press. 2018. Chapter 43, Body Fluids, p. 925 Current Interpretive Data was last revised 2019. Fluid 10/03/2023 12:0 0 PM MATHEMATICIAN RESEARCH 10/03/2023 12:37 PM MATHEMATICIAN RESEARCH Yulisa Joy MD LAB BODY FLUIDS AND ST OOLS ORDERABLES Final Result [facility] Department [place] [address] * XR Chest Lateral Decubitus Left (10/03/2023 10:12 AM MATHEMATICIAN RESEARCH) Anatomical Region Laterality Modality Body, Chest Left Computed Radiogr aphy 10/03/2023 11:4 5 AM MATHEMATICIAN RESEARCH Impressions 10/03/2023 11:49 AM MATHEMATICIAN RESEARCH Redemonstrated moderate right pleural effusion and right basilar airspace opacity, which may represent a combination of pneumonia and atelectasis in the appropriate clinical setting. Dictated by: Guido Xie M.D. The radiology attending physician has personally reviewed this study, and had reviewed and/or edited this written report and agrees with it. Electronically signed by: Roxy Mai M.D. 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 COMPARISON: Chest radiograph 10/03/2023 8:47 AM. FINDINGS: Left lateral decubitus chest radiograph: Surgical clips project over the right upper quadrant and left upper quadrant. Redemonstrated moderate right pleural effusion, now layering dependently along the medial pleural space. ??Redemonstrated right basilar airspace opacity, which may represent a combination of pneumonia and atelectasis in the appropriate clinical setting. ??No left pleural effusion. ??The left lung is clear. ??No pneumothorax. ??Unchanged cardiomediastinal silhouette. Right lateral decubitus chest radiograph: Surgical clips project over the right upper quadrant and left upper quadrant. ??Redemonstrated moderate right pleural effusion, now layering dependently along the lateral pleural space. ??Redemonstrated right basilar airspace opacity, which may represent a combination of pneumonia and atelectasis in the appropriate clinical setting. ??No left pleural effusion. ??The left lung is clear. ??No pneumothorax. ??Unchanged cardiomediastinal silhouette. 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 COMPARISON: Chest radiograph 10/03/2023 8:47 AM. FINDINGS: Left lateral decubitus chest radiograph: Surgical clips project over the right upper quadrant and left upper quadrant. Redemonstrated moderate right pleural effusion, now layering dependently along the medial pleural space. Redemonstrated right basilar airspace opacity, which may represent a combination of pneumonia and atelectasis in the appropriate clinical setting. No left pleural effusion. The left lung is clear. No pneumothorax. Unchanged cardiomediastinal silhouette. Right lateral decubitus chest radiograph: Surgical clips project over the right upper quadrant and left upper quadrant. Redemonstrated moderate right pleural effusion, now layering dependently along the lateral pleural space. Redemonstrated right basilar airspace opacity, which may represent a combination of pneumonia and atelectasis in the appropriate clinical setting. No left pleural effusion. The left lung is clear. No pneumothorax. Unchanged cardiomediastinal silhouette. IMPRESSION: Redemonstrated moderate right pleural effusion and right basilar airspace opacity, which may represent a combination of pneumonia and atelectasis in the appropriate clinical setting. Dictated by: Guido Xie M.D. The radiology attending physician has personally reviewed this study, and had reviewed and/or edited this written report and agrees with it. Electronically signed by: Roxy Mai M.D. Joni Cintron MD IMG XR PROCEDURES Final R esult * XR Chest Lateral Decubitus Right (10/03/2023 10:11 AM MATHEMATICIAN RESEARCH) Anatomical Region Laterality Modality Body, Chest Right Computed Radiogr aphy 10/03/2023 11:4 5 AM MATHEMATICIAN RESEARCH Impressions 10/03/2023 11:49 AM MATHEMATICIAN RESEARCH Redemonstrated moderate right pleural effusion and right basilar airspace opacity, which may represent a combination of pneumonia and atelectasis in the appropriate clinical setting. Dictated by: Guiod Xie M.D. The radiology attending physician has personally reviewed this study, and had reviewed and/or edited this written report and agrees with it. Electronically signed by: Roxy Mai M.D. 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 COMPARISON: Chest radiograph 10/03/2023 8:47 AM. FINDINGS: Left lateral decubitus chest radiograph: Surgical clips project over the right upper quadrant and left upper quadrant. Redemonstrated moderate right pleural effusion, now layering dependently along the medial pleural space. ??Redemonstrated right basilar airspace opacity, which may represent a combination of pneumonia and atelectasis in the appropriate clinical setting. ??No left pleural effusion. ??The left lung is clear. ??No pneumothorax. ??Unchanged cardiomediastinal silhouette. Right lateral decubitus chest radiograph: Surgical clips project over the right upper quadrant and left upper quadrant. ??Redemonstrated moderate right pleural effusion, now layering dependently along the lateral pleural space. ??Redemonstrated right basilar airspace opacity, which may represent a combination of pneumonia and atelectasis in the appropriate clinical setting. ??No left pleural effusion. ??The left lung is clear. ??No pneumothorax. ??Unchanged cardiomediastinal silhouette. 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 COMPARISON: Chest radiograph 10/03/2023 8:47 AM. FINDINGS: Left lateral decubitus chest radiograph: Surgical clips project over the right upper quadrant and left upper quadrant. Redemonstrated moderate right pleural effusion, now layering dependently along the medial pleural space. Redemonstrated right basilar airspace opacity, which may represent a combination of pneumonia and atelectasis in the appropriate clinical setting. No left pleural effusion. The left lung is clear. No pneumothorax. Unchanged cardiomediastinal silhouette. Right lateral decubitus chest radiograph: Surgical clips project over the right upper quadrant and left upper quadrant. Redemonstrated moderate right pleural effusion, now layering dependently along the lateral pleural space. Redemonstrated right basilar airspace opacity, which may represent a combination of pneumonia and atelectasis in the appropriate clinical setting. No left pleural effusion. The left lung is clear. No pneumothorax. Unchanged cardiomediastinal silhouette. IMPRESSION: Redemonstrated moderate right pleural effusion and right basilar airspace opacity, which may represent a combination of pneumonia and atelectasis in the appropriate clinical setting. Dictated by: Guido Xie M.D. The radiology attending physician has personally reviewed this study, and had reviewed and/or edited this written report and agrees with it. Electronically signed by: Roxy Mai M.D. us Joni Cintron MD IMG XR PROCEDURES Final R esult * (ABNORMAL) Protime-INR (10/03/2023 9:33 AM MATHEMATICIAN RESEARCH) PT 16.8(H) 10.3 - 13.7 sec [facility] INR 1.47(H) 0.90 - 1.20 [facility] Comment: Interpretive data Oral anticoagulant therapeutic ranges: Venous thromboembolism prophylaxis or treatment: 2.0-3.0 CARDIOLOGY Standard range: 2.0-3.0 High-intensity range: 2.5-3.5 Refer to indication-specific guidelines for appropriate target ranges for prosthetic heart valve replacement. Current interpretive data was last revised on 2019. Blood 10/03/2023 9:33 AM MATHEMATICIAN RESEARCH 10/03/2023 9:39 AM MATHEMATICIAN RESEARCH Joni Cintron MD LAB BLOOD ORDERABLES Chata l Result [facility] Department [place] [address] * (ABNORMAL) Pneumonia PCR with aerobic culture and Gram stain Sputum (10/03/2023 9:33 AM MATHEMATICIAN RESEARCH) Direct Specimen Exam Stain: Abundant squamous epithelial cells seen indicating excessive oropharyngeal contamination. ??Culture will not be processed further. ??Please submit another specimen. Smear results called to and read back by: Yulisa Joy MD [phone] on 10/03/2023 10:10:17 by: Bahman Torres MT [facility] Direct Specimen Exam Molecular Analysis: Abundant squamous epithelial cells observed on Gram stain. Specimen will not be processed for rapid molecular analysis. [facility] Report Final Report: This is the final report. (.) [facility] Sputum 10/03/2023 9:33 AM MATHEMATICIAN RESEARCH 10/03/2023 9:48 AM MATHEMATICIAN RESEARCH Narrative [facility] - 10/04/2023 7:41 AM MATHEMATICIAN RESEARCH When rapid molecular testing results are reported, testing completed using the FaceOn MobileArray Pneumonia Panel. ??This molecular assay detects: Acinetobacter [...] performance characteristics have been confirmed by the [facility] Laboratory. ??The performance of the FilmArray Pneumonia Panel has not been established for monitoring treatment of infection and bacterial nucleic acids may persist independent of organism viability. us Yulisa Joy MD LAB MICROBIOLOGY - GEN ERAL ORDERABLES Final Result [facility] [place] [address] * POCT lactate (10/03/2023 9:26 AM MATHEMATICIAN RESEARCH) [facility] Lactate POC i-STAT 1.0 0.7 - 2.2 mmol/L [facility] Blood 10/03/2023 9:26 AM MATHEMATICIAN RESEARCH 10/03/2023 9:26 AM MATHEMATICIAN RESEARCH us Notinfile Unknown LAB POCT ORDERABLES - DEVICE F inal Result [facility] [place] [address] * Blood culture Blood Forearm, left (10/03/2023 9:19 AM MATHEMATICIAN RESEARCH) Report Final Report: No growth [facility] Blood (Forearm, left) 10/03/2023 9:19 AM MATHEMATICIAN RESEARCH 10/03/2023 9:27 AM MATHEMATICIAN RESEARCH Narrative [facility] - 10/07/2023 12:00 PM MATHEMATICIAN RESEARCH From a different site than #1. Draw Blood cultures before administration of Antibiotics Collection->Peripheral 1. ?Blood cultures are incubated for [...] organism identification may be performed using the GrabCADigene Gram-Positive Blood Culture Assay. This assay detects microbial DNA in positive blood culture broth via hybridization of target DNA to capture oligonucleotides on a microarray. This assay has been cleared by the [place] Food and Drug Administration and its performance characteristics have been verified by the [facility] Microbiology Laboratory. 5. ?For questions about this culture, contact the Microbiology Laboratory at [phone]. Interpretive data was last revised on 2020. Yulisa Joy MD LAB MICROBIOLOGY - GEN ERAL ORDERABLES Final Result [facility] [place] [address] * Blood culture Blood Antecubital, left (10/03/2023 9:19 AM MATHEMATICIAN RESEARCH) Report Final Report: No growth [facility] Blood (Antecubital, left) 10/03/2023 9:19 AM MATHEMATICIAN RESEARCH 10/03/2023 9:27 AM MATHEMATICIAN RESEARCH Narrative [facility] - 10/07/2023 12:00 PM MATHEMATICIAN RESEARCH Draw Blood cultures before administration of Antibiotics Collection->Peripheral 1. ?Blood cultures are incubated for [...] organism identification may be performed using the GrabCADigene Gram-Positive Blood Culture Assay. This assay detects microbial DNA in positive blood culture broth via hybridization of target DNA to capture oligonucleotides on a microarray. This assay has been cleared by the [place] Food and Drug Administration and its performance characteristics have been verified by the [facility] Microbiology Laboratory. 5. ?For questions about this culture, contact the Microbiology Laboratory at [phone]. Interpretive data was last revised on 2020. us Yulisa Joy MD LAB MICROBIOLOGY - GEN ERAL ORDERABLES Final Result [facility] [place] [address] * XR Chest Pa Lateral 2 Vw (10/03/2023 8:54 AM MATHEMATICIAN RESEARCH) Anatomical Region Laterality Modality Body, Chest N/A Computed Radiogr aphy 10/03/2023 8:59 AM MATHEMATICIAN RESEARCH Impressions 10/03/2023 8:59 AM MATHEMATICIAN RESEARCH Comparison is made to CT dated 08/23/2023. There is moderate right sized pleural effusion. ??Associated right airspace opacity may represent a combination of pneumonia and atelectasis in the appropriate clinical setting. ??The left lung is clear. No pneumothorax. Cardiomediastinal silhouette is partially obscured Electronically signed by: Roxy Mai M.D. Narrative 10/03/2023 8:59 AM MATHEMATICIAN RESEARCH EXAMINATION: 2 view chest radiograph Procedure Note Roxy Mai MD - 10/03/2023 EXAMINATION: 2 view chest radiograph IMPRESSION: Comparison is made to CT dated 08/23/2023. There is moderate right sized pleural effusion. Associated right airspace opacity may represent a combination of pneumonia and atelectasis in the appropriate clinical setting. The left lung is clear. No pneumothorax. Cardiomediastinal silhouette is partially obscured Electronically signed by: Roxy Mai M.D. Yulisa Joy MD IMG XR PROCEDURES Chata l Result * Tacrolimus level random (10/03/2023 8:27 AM MATHEMATICIAN RESEARCH) Pathologist [facility] Tacrolimus random 8.9 ng/mL [facility] Comment: Interpretive Data Testing performed by liquid chromatography-tandem mass spectrometry. ??Therapeutic concentrations vary depending on type of transplanted organ and time elapsed since transplant. ??Typical trough concentrations range from 5-15 ng/mL. ??This test was developed and its performance characteristics determined by the [facility] Laboratory consistent with CLIA requirements. ??This test has not been cleared or approved by the [place] Food and Drug administration. ??Current interpretive data last reviewed 2020. Blood 10/03/2023 8:27 AM MATHEMATICIAN RESEARCH 10/03/2023 8:33 AM MATHEMATICIAN RESEARCH Yulisa Joy MD LAB BLOOD ORDERABLES F inal Result Performing Organization Address [facility] Co de Phone Number [facility] [place] [address] * (ABNORMAL) Lactate dehydrogenase (LD) (10/03/2023 8:24 AM MATHEMATICIAN RESEARCH) Lactate dehydrogenase (LDH) 293(H) 100 - 250 Units/L [facility] Blood 10/03/2023 8:24 AM MATHEMATICIAN RESEARCH 10/03/2023 8:32 AM MATHEMATICIAN RESEARCH Lisandra Talbot MD LAB BLOOD ORDERABLES Final Result Performing Organization Address [facility] de Phone Number [facility] [place] [address] * eGFR (10/03/2023 8:24 AM MATHEMATICIAN RESEARCH) eGFR 86 >=60 mL/min/1. 73 m2 [facility] Comment: Interpretive Data Reference Interval Normal ?>/= [...] interpretive data was last reviewed 2021. Blood 10/03/2023 8:24 AM MATHEMATICIAN RESEARCH 10/03/2023 8:34 AM MATHEMATICIAN RESEARCH us Yulisa Joy MD LAB BLOOD ORDERABLES F inal Result [facility] [place] [address] * (ABNORMAL) Differential, auto (10/03/2023 8:24 AM MATHEMATICIAN RESEARCH) Neutrophil abs 11.3(H) 1.7 - 6.5 K/cumm [facility] Imm gran abs 0.3(H) 0.0 - 0.1 K/cumm [facility] Lymphocyte abs 1.2 0.8 - 3.3 K/cumm [facility] Monocyte abs 4.2(H) 0.2 - 0.8 K/cumm [facility] Eosinophil abs 0.1 0.0 - 0.5 K/cumm [facility] Basophil abs 0.1 0.0 - 0.1 K/cumm [facility] Neutrophil pct 65.8 % [facility] Comment: Interpretive Data Percent cell count reference ranges are not reported, since discordance with absolute values may lead to misinterpretation of CBC data. Current Interpretive Data was last revised on 2018. Imm gran pct 1.9 % [facility] Comment: Interpretive Data Percent cell count reference ranges are not reported, since discordance with absolute values may lead to misinterpretation of CBC data. Current Interpretive Data was last revised on 2018. Lymphocyte pct 7.1 % [facility] Comment: Interpretive Data Percent cell count reference ranges are not reported, since discordance with absolute values may lead to misinterpretation of CBC data. Current Interpretive Data was last revised on 2018. Monocyte pct 24.5 % [facility] Comment: Interpretive Data Percent cell count reference ranges are not reported, since discordance with absolute values may lead to misinterpretation of CBC data. Current Interpretive Data was last revised on 2018. Eosinophil pct 0.3 % [facility] Comment: Interpretive Data Percent cell count reference ranges are not reported, since discordance with absolute values may lead to misinterpretation of CBC data. Current Interpretive Data was last revised on 2018. Basophil pct 0.4 % [facility] Comment: Interpretive Data Percent cell count reference ranges are not reported, since discordance with absolute values may lead to misinterpretation of CBC data. Current Interpretive Data was last revised on 2018. Blood 10/03/2023 8:24 AM MATHEMATICIAN RESEARCH 10/03/2023 8:29 AM MATHEMATICIAN RESEARCH Yulisa Joy MD LAB BLOOD ORDERABLES F inal Result [facility] [place] [address] * (ABNORMAL) Bilirubin, direct (10/03/2023 8:24 AM MATHEMATICIAN RESEARCH) Bilirubin, direct 4.7(H) 0.1 - 0.3 mg/dL [facility] Blood 10/03/2023 8:24 AM MATHEMATICIAN RESEARCH 10/03/2023 8:29 AM MATHEMATICIAN RESEARCH Yulisa Joy MD LAB BLOOD ORDERABLES F inal Result [facility] Department [place] [address] * (ABNORMAL) Respiratory pathogen panel Nasopharyngeal (10/03/2023 8:24 AM MATHEMATICIAN RESEARCH) [facility] Influenza A RNA Not Detected Not Detected [facility] Influenza B RNA Not Detected Not Detected [facility] RSV RNA Not Detected Not Detected [facility] COVID-19 RNA Not Detected Not Detected [facility] Coronavirus 229E RNA Not Detected Not Detected [facility] Coronavirus HKU1 RNA Not Detected Not Detected [facility] Coronavirus NL63 RNA Not Detected Not Detected [facility] Coronavirus OC43 RNA Not Detected Not Detected [facility] Adenovirus DNA Not Detected Not Detected [facility] Metapneumovirus RNA Not Detected Not Detected [facility] Rhinovirus/Enterov irus RNA Detected(A) Not Detected [facility] Parainfluenza 1 RNA Not Detected Not Detected [facility] Parainfluenza 2 RNA Not Detected Not Detected [facility] Parainfluenza 3 RNA Not Detected Not Detected [facility] Parainfluenza 4 RNA Not Detected Not Detected [facility] B. pertussis DNA Not Detected Not Detected [facility] B. parapertussis DNA Not Detected Not Detected [facility] C. pneumoniae DNA Not Detected Not Detected [facility] M. pneumoniae DNA Not Detected Not Detected [facility] Nasopharyngeal 10/03/2023 8: 24 AM MATHEMATICIAN RESEARCH 10/03/2023 8:49 AM MATHEMATICIAN RESEARCH Narrative [facility] - 10/03/2023 9:57 AM MATHEMATICIAN RESEARCH Is the Patient experiencing symptoms consistent with COVID?->Yes Date of Symptom Onset->09/26/23 Reason for testing?->Symptomatic Surveillance testing for transplant patient?->No ??Interpretive Data The InToTally FilmArray Respiratory Panel (RP2.1) assay is a [...] assay has FDA clearance for testing of [employer] swabs. ??The performance of additional specimen types has been assessed by the performing laboratory. ??The performance characteristics of this assay have been determined by [facility]. Current interpretive data was last revised on 22. us Yulisa Joy MD LAB MICROBIOLOGY - GEN ERAL ORDERABLES Final Result [facility] Department [place] [address] * (ABNORMAL) Comprehensive metabolic panel (10/03/2023 8:24 AM MATHEMATICIAN RESEARCH) Sodium 135 135 - 145 mmol/L [facility] Potassium, pl 4.9 3.3 - 4.9 mmol/L [facility] Chloride 105 97 - 110 mmol/L [facility] CO2 21(L) 22 - 32 mmol/L [facility] Anion gap 9 2 - 15 mmol/L [facility] BUN 35(H) 6 - 25 mg/dL [facility] Creatinine 1.17 0.80 - 1.30 mg/dL [facility] Glucose 117 70 - 199 mg/dL [facility] Comment: Interpretive Data Fasting glucose >/= [...] interpretive data was last revised 2022. Calcium 8.5 8.5 - 10.3 mg/dL [facility] Bilirubin, total 5.4(H) 0.1 - 1.2 mg/dL [facility] Protein, pl 5.1(L) 6.5 - 8.5 g/dL [facility] Albumin 2.8(L) 3.5 - 5.0 g/dL [facility] Alk phos 181(H) 40 - 130 Units/L [facility] ALT 30 7 - 55 Units/L [facility] AST 40 10 - 50 Units/L [facility] Blood 10/03/2023 8:24 AM MATHEMATICIAN RESEARCH 10/03/2023 8:29 AM MATHEMATICIAN RESEARCH us Yulisa Joy MD LAB BLOOD ORDERABLES F inal Result [facility] Department [place] [address] * (ABNORMAL) CBC with auto differential (10/03/2023 8:24 AM MATHEMATICIAN RESEARCH) Pathologist [facility] WBC 17.1(H) 3.8 - 9.9 K/cumm [facility] Hgb 12.1(L) 13.0 - 17.5 g/dL [facility] Comment: Result may be inaccurate due to increased plasma turbidity. Consider redraw. Interpretive Data A reference range for this assay has not been established for patients with an unknown legal sex. Please refer to the laboratory test catalog for established sex-specific reference intervals. Current interpretive data was last revised on 2023. Hct 31.3(L) 38.9 - 50.3 % [facility] Comment: Interpretive Data A reference range for this assay has not been established for patients with an unknown legal sex. Please refer to the laboratory test catalog for established sex-specific reference intervals. Current interpretive data was last revised on 2023. Plt 211 150 - 400 K/cumm [facility] MPV 10.6 9.1 - 12.3 fL [facility] RBC 3.09(L) 4.30 - 5.80 M/cumm [facility] Comment: Interpretive Data A reference range for this assay has not been established for patients with an unknown legal sex. Please refer to the laboratory test catalog for established sex-specific reference intervals. Current interpretive data was last revised on 2023. MCV 101.3(H) 81.3 - 96.4 fL [facility] MCH 39.2(H) 27.1 - 33.3 pg [facility] Comment:Result may be inaccu rate due to increased plasma turbidity. Consider redraw. MCHC 38.7(H) 32.3 - 35.7 g/dL [facility] Comment:Result may be inaccu rate due to increased plasma turbidity. Consider redraw. RDW CV 16.4(H) 11.1 - 14.9 % [facility] RDW SD 60.1(H) 35.7 - 48.1 fL [facility] NRBC abs 0.00 0.00 - 0.01 K/cumm [facility] Blood 10/03/2023 8:24 AM MATHEMATICIAN RESEARCH 10/03/2023 8:29 AM MATHEMATICIAN RESEARCH us Yulisa Joy MD LAB BLOOD ORDERABLES F inal Result [facility] Department [place] [address] documented in this encounter Visit Diagnoses Diagnosis Pneumonia of right lung due to infectious organism, unspecified part of lung- Primary Pneumonia of right lung due to infectious organism, unspecified part of lung Parapneumonic effusion Other specified forms of effusion, except tuberculous Sepsis without acute organ dysfunction, due to unspecified organism (HCC) 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 purpura WATSON (acute kidney injury) (HCC) Cytomegalovirus infection (HCC) Cytomegaloviral disease History of liver transplant (CMS/HCC) (HCC) 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) Acute hypoxic respiratory failure (HCC) Edema of left lower extremity Parapneumonic effusion Other specified forms of effusion, except tuberculous documented in this encounter Admitting Diagnoses Diagnosis Pneumonia of right lung due to infectious organism, unspecified part of lung Parapneumonic effusion Other specified forms of effusion, except tuberculous documented in this encounter Administered Medications Inactive Administered Medications - up to 3 most recent administrations Medication Order MAR Action Action Date Dose Rate Site alteplase (CATHFLO ACTIVASE) 10 mg in sodium chloride 0.9% 30 mL intrapleural syringe 10 mg, intrapleural, Once, On Wed10/04/23 at 1545, For 1 dose, Administer first (before dornase)., Indications: Parapneumonic effusions and empyemaIndications:Para pneumonic effusions and empyema Given 10/04/2023 9:30 PM MATHEMATICIAN RESEARCH 10 mg amoxicillin-clavulanate (AUGMENTIN) 875-125 mg per tablet 875 mg of amoxicillin 875 mg of amoxicillin, oral, 2 times daily, First dose on Wed10/13/23 at 0900, Indications: Pneumonia, AspirationIndications:P neumonia, Aspiration Given 10/13/2023 8:34 AM MATHEMATICIAN RESEARCH 875 mg of amoxicillin azithromycin (ZITHROMAX) 500 mg/255 mL in sodium chloride 0.9% (premix) 500 mg 500 mg, intravenous, at 255 mL/hr, Administer over 60 Minutes, Every 24 hours scheduled, First dose on Wed10/04/23 at 0030, Indications: Pneumonia, Community AcquiredIndications:Pne umonia, Community Acquired New Bag 10/04/2023 12:45 AM MATHEMATICIAN RESEARCH 500 mg 255 mL/hr azithromycin (ZITHROMAX) tablet 500 mg 500 mg, oral, Daily, First dose on Wed10/04/23 at 0930, Indications: Pneumonia, Community AcquiredIndications:Pne umonia, Community Acquired Given 10/05/2023 9:31 AM MATHEMATICIAN RESEARCH 500 mg Given 10/04/2023 9:52 AM MATHEMATICIAN RESEARCH 500 mg benzocaine-menthoL (CHLORASEPTIC) lozenge 1 lozenge 1 lozenge, mouth/throat, Every 2 hours PRN, sore throat, other, cough, Starting on 10/10/23 at 1731 Given 10/10/2023 10:17 PM MATHEMATICIAN RESEARCH 1 lozenge Given 10/10/2023 6:01 PM MATHEMATICIAN RESEARCH 1 lozenge benzonatate (TESSALON) capsule 100 mg 100 mg, oral, 3 times daily PRN, cough, if unrelieved by cough drops, Starting on 10/10/23 at 1731, Do not crush, chew, cut, dissolve, open or otherwise manipulate tablet/capsule., Indications: CoughIndications:Cough Given 10/13/2023 8:24 AM MATHEMATICIAN RESEARCH 100 mg Given 10/10/2023 10:16 PM MATHEMATICIAN RESEARCH 100 mg cefepime (MAXIPIME) 2,000 mg/20 mL in sterile water (premix) 2,000 mg 2,000 mg, intravenous, at 240 mL/hr, Administer over 5 Minutes, Every 12 hours scheduled, First dose on 10/03/23 at 0935, Indications: SepsisIndications:Sepsis New Bag 10/03/2023 8:04 PM MATHEMATICIAN RESEARCH 2,000 mg 240 mL /hr New Bag 10/03/2023 9:38 AM MATHEMATICIAN RESEARCH 2,000 mg 240 mL/hr cefepime (MAXIPIME) 2,000 mg/20 mL in sterile water (premix) 2,000 mg 2,000 mg, intravenous, at 240 mL/hr, Administer over 5 Minutes, Every 8 hours scheduled, First dose (after last modification) on Wed10/04/23 at 0900, For 19 doses, Indications: SepsisIndications:Sepsis New Bag 10/10/2023 8:39 AM MATHEMATICIAN RESEARCH 2,000 mg 240 mL /hr New Bag 10/10/2023 12:54 AM MATHEMATICIAN RESEARCH 2,000 mg 240 mL/hr L eft Forearm New Bag 10/09/2023 5:34 PM MATHEMATICIAN RESEARCH 2,000 mg 240 mL/hr cefepime (MAXIPIME) 2,000 mg/20 mL in sterile water (premix) 2,000 mg 2,000 mg, intravenous, at 240 mL/hr, Administer over 5 Minutes, Every 8 hours scheduled, First dose (after last reorder) on Wed10/10/23 at 1645, For 7 days, Indications: SepsisIndications:Sepsis New Bag 10/13/2023 12:48 AM MATHEMATICIAN RESEARCH 2,000 mg 240 m L/hr New Bag 10/12/2023 5:21 PM MATHEMATICIAN RESEARCH 2,000 mg 240 mL/hr New Bag 10/12/2023 8:51 AM MATHEMATICIAN RESEARCH 2,000 mg 240 mL/hr cyclobenzaprine (FLEXERIL) tablet 10 mg 10 mg, oral, Once, On Wed10/03/23 at 1951, For 1 dose Given 10/03/2023 8:04 PM MATHEMATICIAN RESEARCH 10 mg cyclobenzaprine (FLEXERIL) tablet 10 mg 10 mg, oral, 3 times daily PRN, muscle spasms, Starting on Wed10/04/23 at 1603 Given 10/04/2023 11:52 PM MATHEMATICIAN RESEARCH 10 mg Given 10/04/2023 4:08 PM MATHEMATICIAN RESEARCH 10 mg cyclobenzaprine (FLEXERIL) tablet 5 mg 5 mg, oral, Once, On Wed10/04/23 at 1245, For 1 dose Given 10/04/2023 12:23 PM MATHEMATICIAN RESEARCH 5 mg dornase alpha (PULMOZYME) 5 mg in sodium chloride 0.9% 30 mL intrapleural syringe 5 mg, intrapleural, Once, On Wed10/04/23 at 1545, For 1 dose, Administer second (after alteplase)., I /authorizing provider attest that the patient meets the approved [facility] Use Criteria: Yes, Indications: Parapneumonic effusions and empyemaIndications:Parapneumonic effusions and empyema Given 10/04/2023 9:29 PM MATHEMATICIAN RESEARCH 5 mg enoxaparin (LOVENOX) syringe 40 mg 40 mg, subcutaneous, Daily (for enoxaparin), First dose on [place] 10/03/23 at 2230, Indications: Deep Vein Thrombosis PreventionIndications:Deep Vein Thrombosis Prevention Given 10/09/2023 8:24 PM MATHEMATICIAN RESEARCH 40 mg Left Upper Arm Given 10/08/2023 8:29 PM MATHEMATICIAN RESEARCH 40 mg Le ft Upper Arm Given 10/07/2023 8:15 PM MATHEMATICIAN RESEARCH 40 mg Le ft Lower Abdomen furosemide (LASIX) 10 mg/mL injection 40 mg 40 mg, intravenous, Once, On Wed10/11/23 at 1215, For 1 dose, For IV push: administer doses < 160 mg at a rate of 20 -40 mg/min. Doses >/= 160 mg should be administered no faster than 4 mg/min. Room temperature only Given 10/11/2023 1:0 8 PM MATHEMATICIAN RESEARCH 40 mg furosemide (LASIX) tablet 20 mg 20 mg, oral, Daily, First dose on Wed10/04/23 at 0900, On hold since Wed10/05/2023 at 1059 until manually unheld Given 10/05/2023 9:32 AM MATHEMATICIAN RESEARCH 20 mg Given 10/04/2023 9:52 AM MATHEMATICIAN RESEARCH 20 mg furosemide (LASIX) tablet 20 mg 20 mg, oral, Daily, First dose (after last modification) on Wed10/06/23 at 0930, On hold since Wed10/11/2023 at 1135 until manually unheld Given 10/11/2023 8:22 AM MATHEMATICIAN RESEARCH 20 mg Given 10/10/2023 8:38 AM MATHEMATICIAN RESEARCH 20 mg Given 10/09/2023 9:17 AM MATHEMATICIAN RESEARCH 20 mg furosemide (LASIX) tablet 20 mg 20 mg, oral, Once, On Wed10/08/23 at 1545, For 1 dose Given 10/08/2023 4:02 PM MATHEMATICIAN RESEARCH 20 mg gadoterate meglumine injection 12 mL 12 mL, intravenous, Once in imaging, contrast, Starting on Wed10/03/23 at 1319, For 1 dose Contrast Given 10/03/2023 1:20 PM MATHEMATICIAN RESEARCH 12 mL guaiFENesin-dextromethorphan ER (MUCINEX DM) 600-30 mg per 12 hour tablet 1 tablet 1 tablet, oral, Once, On Wed10/03/23 at 0837, For 1 dose Given 10/03/2023 9:09 AM MATHEMATICIAN RESEARCH 1 tablet HYDROmorphone (DILAUDID) 0.5 mg/0.5 mL injection - ADS Override Pull Starting on Wed10/04/23 at 1313, For 1 dose, Created by cabinet override HYDROmorphone (DILAUDID) injection 0.2 mg 0.2 mg, intravenous, Administer over 2 Minutes, Once, On 10/03/23 at 1628, For 1 dose Given 10/03/2023 4:34 PM MATHEMATICIAN RESEARCH 0.2 mg HYDROmorphone (DILAUDID) injection 0.5 mg 0.5 mg, intravenous, Administer over 2 Minutes, Once, On 10/03/23 at 1243, For 1 dose Given 10/03/2023 12:53 PM MATHEMATICIAN RESEARCH 0.5 mg HYDROmorphone (DILAUDID) injection 0.5 mg 0.5 mg, intravenous, Administer over 2 Minutes, Once, On 10/04/23 at 1415, For 1 dose Given 10/04/2023 1:00 PM MATHEMATICIAN RESEARCH 0.5 mg immune globulin (GAMUNEX-C,GAMMAKED) 10 % infusion 30 g 30 g (rounded from 29.65 g = 500 mg/kg ? 59.3 kg), intravenous, Daily, First dose on 10/09/23 at 1345, For 1 dose, Administer over: 1 mg/kg/min x 30 minutes, then 2 mg/kg/min x 30 minutes, then 4 mg/kg/min x 30 minutes, then 6 mg/kg/min x 30 minutes, then 8 mg/kg/min until infusion complete. If initial titration was well tolerated, subsequent infusions may be titrated every 15 minutes., Indications: Idiopathic Thrombocytopenic PurpuraIndications:Idiopathic Thrombocytopenic Purpura Rate/Dose Change 10/09/2023 4:50 PM MATHEMATICIAN RESEARCH 285 mL/hr Rate/Dose Change 10/09/2023 4:20 PM MATHEMATICIAN RESEARCH 213 mL/ hr Rate/Dose Change 10/09/2023 3:50 PM MATHEMATICIAN RESEARCH 142 mL/ hr ioversoL (OPTIRAY 350) syringe 75 mL 75 mL, intravenous, Once in imaging, contrast, Starting on 10/03/23 at 1547, For 1 dose Contrast Given 10/03/2023 3:48 PM MATHEMATICIAN RESEARCH 70 mL ipratropium-albuteroL (DUO-NEB) 0.5-2.5 mg/3 mL nebulizer solution 3 mL 3 mL, nebulization, 4 times daily (claims correspondence clerk), First dose on 10/03/23 at 2300, Indications: Chronic Obstructive Pulmonary Disease with BronchospasmsIndications:Chronic Obstructive Pulmonary Disease with Bronchospasms Given 10/04/2023 5:13 PM MATHEMATICIAN RESEARCH 3 mL Given 10/04/2023 11:38 AM MATHEMATICIAN RESEARCH 3 mL Given 10/04/2023 4:13 AM MATHEMATICIAN RESEARCH 3 mL ipratropium-albuteroL (DUO-NEB) 0.5-2.5 mg/3 mL nebulizer solution 3 mL 3 mL, nebulization, Every 4 hours PRN (claims correspondence clerk), wheezing, shortness of breath, Starting on 10/04/23 at 1730, Indications: Chronic Obstructive Pulmonary Disease with BronchospasmsIndications:Chronic Obstructive Pulmonary Disease with Bronchospasms Lactated Ringer's (LR) bolus 500 mL 500 mL, intravenous, Once, On 10/03/23 at 1410, For 1 dose New Bag 10/03/2023 2:13 PM MATHEMATICIAN RESEARCH 500 mL Lactated Ringer's (LR) bolus 500 mL 500 mL, intravenous, Once, On Wed10/03/23 at 1628, For 1 dose New Bag 10/03/2023 4:34 PM MATHEMATICIAN RESEARCH 500 mL letermovir (PREVYMIS) tablet 480 mg 480 mg, oral, Daily, First dose on Wed10/04/23 at 0900, For 175 days, Do not crush, break, or open., I /authorizing provider attest that the patient meets the approved [facility] Use Criteria: Yes, Indications: CMV viremiaIndications:CMV viremia Given 10/13/2023 8:32 AM MATHEMATICIAN RESEARCH 480 mg Given 10/12/2023 8:51 AM MATHEMATICIAN RESEARCH 480 mg Given 10/11/2023 8:22 AM MATHEMATICIAN RESEARCH 480 mg lidocaine (ASPERCREME) 4 % patch 1 patch 1 patch, transdermal, Administer over 12 Hours, Every 24 hours, First dose on 10/03/23 at 2215, Apply to affected area: back Medication Applied 10/05/2023 9:58 PM MATHEMATICIAN RESEARCH 1 patch Back Medication Applied 10/04/2023 10:56 PM MATHEMATICIAN RESEARCH 1 patch Back Medication Applied 10/03/2023 10:28 PM MATHEMATICIAN RESEARCH 1 patch Back lidocaine (LIDODERM) 5 % patch 1 patch 1 patch, transdermal, Administer over 12 Hours, Every 24 hours, First dose on 10/03/23 at 1951, Do not cover the holes on the top side of the patch., Apply to affected area: back Medication Applied 10/03/2023 8:04 PM MATHEMATICIAN RESEARCH 1 patch Back lidocaine PF (XYLOCAINE) 10 mg/mL (1 %) preservative free injection - ADS Override Pull Starting on Wed10/04/23 at 1242, For 1 dose, Created by cabinet override lidocaine PF (XYLOCAINE) 10 mg/mL (1 %) preservative free injection 100 mg 100 mg (10 mL), subcutaneous, Once, On Wed10/03/23 at 1118, For 1 dose Given by Other 10/03/2023 11:18 AM MATHEMATICIAN RESEARCH 100 mg Right Chest lidocaine PF (XYLOCAINE) 10 mg/mL (1 %) preservative free injection 50 mg 50 mg (5 mL), infiltration, Once, On Wed10/04/23 at 1515, For 1 dose, For documentation of thora medications Given 10/04/2023 12:35 PM MATHEMATICIAN RESEARCH 50 mg methyl salicylate-menthol 15-1 % cream topical, 4 times daily PRN, muscle/joint pain, Starting on Wed10/04/23 at 1001, Apply to affected area: back Given 10/04/2023 12:23 PM MATHEMATICIAN RESEARCH morphine injection 2 mg 2 mg, intravenous, Administer over 4 Minutes, Once, On Wed10/03/23 at 1206, For 1 dose Given 10/03/2023 12:08 PM MATHEMATICIAN RESEARCH 2 mg morphine injection 2 mg 2 mg, intravenous, Administer over 4 Minutes, Once, On Wed10/03/23 at 1218, For 1 dose Given 10/03/2023 12:19 PM MATHEMATICIAN RESEARCH 2 mg oxyCODONE (ROXICODONE) tablet 5 mg 5 mg, oral, Once, On Wed10/05/23 at 1015, For 1 dose, Indications: PainIndications:Pain Given 10/05/2023 9:46 AM MATHEMATICIAN RESEARCH 5 mg oxyCODONE (ROXICODONE) tablet 5 mg 5 mg, oral, Every 4 hours PRN, 2nd line for pain, Starting on Wed10/05/23 at 1553, Indications: PainIndications:Pain Given 10/05/2023 8:45 PM MATHEMATICIAN RESEARCH 5 mg polyethylene glycol (MIRALAX) packet 17 g 17 g, oral, Daily PRN, constipation, Starting on Wed10/03/23 at 2158, Indications: constipationIndications:con stipation Given 10/05/2023 5:52 PM MATHEMATICIAN RESEARCH 17 g sodium chloride 0.9% flush 0.5-20 mL 0.5-20 mL, intra-catheter, Every 8 hours scheduled, First dose on Wed10/03/23 at 2230, Flush volume based on line type and size. Given 10/11/2023 8:38 PM MATHEMATICIAN RESEARCH 10 mL Given 10/11/2023 1:08 PM MATHEMATICIAN RESEARCH 10 mL Given 10/11/2023 4:59 AM MATHEMATICIAN RESEARCH 10 mL sodium chloride 0.9% flush 0.5-20 mL 0.5-20 mL, intra-catheter, As needed, line care, Starting on Wed10/03/23 at 2158, Flush volume based on line type and size. Flush before and after each use. Given 10/10/2023 12:54 AM MATHEMATICIAN RESEARCH 10 mL Left Forearm sodium chloride 0.9% intrapleural flush 50 mL 50 mL, intrapleural, Once, On Wed10/04/23 at 1545, For 1 dose, Administer after alteplase and dornase. Clamp chest tube for 120 minutes. Given 10/04/2023 9:29 PM MATHEMATICIAN RESEARCH 50 mL sodium zirconium cyclosilicate (LOKELMA) packet 10 g 10 g, oral, Once, On Wed10/04/23 at 1815, For 1 dose, Adjust medication timing to ensure other oral medications are administered at least 2 hours before or 2 hours after sodium zirconium cyclosilicate. Empty packet(s) into a glass with 3 tablespoons (45 mL) of water. Stir and administer immediately. Repeat until no powder remains in glass., Indications: hyperkalemiaIndications:hyperkalem ia Given 10/04/2023 6:42 PM MATHEMATICIAN RESEARCH 10 g spironolactone (ALDACTONE) tablet 50 mg 50 mg, oral, Daily, First dose (after last modification) on Wed10/08/23 at 1445 Given 10/13/2023 8:24 AM MATHEMATICIAN RESEARCH 50 mg Given 10/12/2023 8:51 AM MATHEMATICIAN RESEARCH 50 mg Given 10/11/2023 8:22 AM MATHEMATICIAN RESEARCH 50 mg tacrolimus immediate-release capsule 0.5 mg 0.5 mg, oral, Every other day, First dose on Wed10/04/23 at 0900, Avoid grapefruit juice, Indications: Prevention of Liver Transplant RejectionIndications:Prevention of Liver Transplant Rejection Given 10/04/2023 9:52 AM MATHEMATICIAN RESEARCH 0.5 mg tacrolimus immediate-release capsule 0.5 mg 0.5 mg, oral, Every other day, First dose (after last reorder) on Wed10/06/23 at 1415, Avoid grapefruit juice, Indications: Prevention of Liver Transplant RejectionIndications:Prevention of Liver Transplant Rejection Given 10/12/2023 8:51 AM MATHEMATICIAN RESEARCH 0.5 mg Given 10/10/2023 8:39 AM MATHEMATICIAN RESEARCH 0.5 mg Given 10/08/2023 9:55 AM MATHEMATICIAN RESEARCH 0.5 mg tacrolimus immediate-release capsule 0.5 mg 0.5 mg, oral, Every 72 hours, First dose (after last modification) on Wed10/15/23 at 0900, Avoid grapefruit juice, Indications: Prevention of Liver Transplant RejectionIndications:Prevention of Liver Transplant Rejection ursodioL (ACTIGALL) capsule 600 mg 600 mg, oral, Daily with dinner, First dose on Wed10/04/23 at 1800 Given 10/12/2023 6:30 PM MATHEMATICIAN RESEARCH 600 mg Given 10/11/2023 5:19 PM MATHEMATICIAN RESEARCH 600 mg Given 10/10/2023 5:23 PM MATHEMATICIAN RESEARCH 600 mg valGANciclovir (VALCYTE) tablet 900 mg 900 mg, oral, 2 times daily, First dose on Wed10/04/23 at 0030, For 168 days, Do not crush, chew, cut, dissolve, open or otherwise manipulate tablet/capsule., Indications: Blood Stream/Endovascular InfectionIndications:Blood Stream/Endovascular Infection Given 10/13/2023 8:24 AM MATHEMATICIAN RESEARCH 900 mg Given 10/12/2023 9:02 PM MATHEMATICIAN RESEARCH 900 mg Given 10/12/2023 8:51 AM MATHEMATICIAN RESEARCH 900 mg vancomycin 1,000 mg/200 mL in dextrose 5% (premix) 1,000 mg 1,000 mg (rounded from 918 mg = 15 mg/kg ? 61.2 kg), intravenous, Administer over 60 Minutes, Every 12 hours, First dose on Wed10/03/23 at 0935, Indications: SepsisIndications:Sepsis New Bag 10/04/2023 9:04 PM MATHEMATICIAN RESEARCH 1,000 mg New Bag 10/04/2023 9:52 AM MATHEMATICIAN RESEARCH 1,000 mg New Bag 10/03/2023 8:05 PM MATHEMATICIAN RESEARCH 1,000 mg documented in this encounter Discontinued Medications Medication Sig Discontinue Reason Start Date End Da te tacrolimus 0.5 mg immediate-release capsuleIndications:Preve ntion of Liver Transplant Rejection Take 1 capsule (0.5 mg total) by mouth every other day 09/22/2023 10/13/2023 documented as of this encounter Active and Recently Administered Medications Times are shown in [facility]. Scheduled Medication Order 10/11/2023 10/12/2023 10/13/2023 amoxicillin-clavulanate (AUGMENTIN) 875-125 mg per tablet 875 mg of amoxicillin 875 mg of amoxicillin, oral, 2 times daily, First dose on Wed10/13/23 at 0900, Indications: Pneumonia, Aspiration 0834 (Given - Provider: Philip Curran RN) cefepime (MAXIPIME) 2,000 mg/20 mL in sterile water (premix) 2,000 mg (CANCELED) 2,000 mg, intravenous, at 240 mL/hr, Administer over 5 Minutes, Every 8 hours scheduled, First dose (after last reorder) on Wed10/10/23 at 1645, For 7 days, Indications: Sepsis 0118 (New Bag - Provider: Mary Perez RN)0123 (Stopped - Provider: Mary Perez RN)0822 (New Bag - Provider: Judy Peralta RN)0831 (Stopped - Provider: Judy Peralta RN)1719 (New Bag - Provider: Judy Peralta RN)1726 (Stopped - Provider: Judy Peralta RN) 0126 (New Bag - Provider: Yulisa Catalan RN)0132 (Stopped - Provider: Yulisa Catalan, SHAILESH)0851 (New Bag - Provider: Faizan Agarwal, SHAILESH)0856 (Stopped - Provider: Faizan Agarwal, SHAILESH)1721 (New Bag - Provider: Faizan Agarwal, SHAILESH)1729 (Stopped - Provider: Faizan Agarwal RN) 0048 (New Bag - Provider: Lynne Sifuentes, SHAILESH)0054 (Stopped - Provider: Lynne Sifuentes, SHAILESH) enoxaparin (LOVENOX) syringe 40 mg 40 mg, subcutaneous, Daily (for enoxaparin), First dose on Wed10/03/23 at 2230, Indications: Deep Vein Thrombosis Prevention 2037 (Not Given - Provider: Yulisa Catalan RN - Reason: Patient/family refused) 2101 (Not Given - Provider: Lynne Sifuentes RN - Reason: Patient/family refused) furosemide (LASIX) 10 mg/mL injection 40 mg (COMPLETED) 40 mg, intravenous, Once, On Wed10/11/23 at 1215, For 1 dose, For IV push: administer doses < 160 mg at a rate of 20 -40 mg/min. Doses >/= 160 mg should be administered no faster than 4 mg/min. Room temperature only 1308 (Given - Provider: Judy Peralta RN) furosemide (LASIX) tablet 20 mg 20 mg, oral, Daily, First dose (after last modification) on Wed10/06/23 at 0930, On hold since Wed10/11/2023 at 1135 until manually unheld 0822 (Given - Provider: uJdy Peralta RN)1135 (Held by Provider - Provider: Chelsi Weinberg MD - Reason: Change in Patient Status) 0900 (Dose Auto Held - Provider: Chelsi Weinberg MD) 0900 (Dose Auto Held - Provider: Chelsi Weinberg MD)1835 (Unheld by Provider - Provider: Automatic Discharge Provider) letermovir (PREVYMIS) tablet 480 mg 480 mg, oral, Daily, First dose on Wed10/04/23 at 0900, For 175 days, Do not crush, break, or open., I /authorizing provider attest that the patient meets the approved [facility] Use Criteria: Yes, Indications: CMV viremia 0822 (Given - Provider: Judy Peralta RN) 0851 (Given - Provider: Faizan Agarwal, SHAILESH) 0832 (Given - Provider: Philip Curran, SHAILESH) lidocaine (ASPERCREME) 4 % patch 1 patch 1 patch, transdermal, Administer over 12 Hours, Every 24 hours, First dose on Wed10/03/23 at 2215, Apply to affected area: back 2024 (Not Given - Provider: Yulisa Catalan RN - Reason: Patient/family refused) 2221 (Not Given - Provider: Lynne Sifuentes RN - Reason: Patient/family refused) sodium chloride 0.9% flush 0.5-20 mL 0.5-20 mL, intra-catheter, Every 8 hours scheduled, First dose on Wed10/03/23 at 2230, Flush volume based on line type and size. 0459 (Given - Provider: Mary Perez RN)1308 (Given - Provider: Judy Peralta RN)2038 (Given - Provider: Yulisa Catalan RN) 0446 (Not Given - Provider: Yulisa Catalan RN - Reason: Other)1458 (Canceled Entry - Provider: Faizan Agarwal RN)2223 (Not Given - Provider: Lynne Sifuentes RN - Reason: Other) 0621 (Not Given - Provider: Lynne Sifuentes RN - Reason: Other)1400 (Canceled Entry - Provider: Philip Curran RN) spironolactone (ALDACTONE) tablet 50 mg 50 mg, oral, Daily, First dose (after last modification) on Wed10/08/23 at 1445 0822 (Given - Provider: Judy Peralta RN) 0851 (Given - Provider: Faizan Agarwal, SHAILESH) 0824 (Given - Provider: Philip Curran RN) tacrolimus immediate-release capsule 0.5 mg (CANCELED) 0.5 mg, oral, Every other day, First dose (after last reorder) on Wed10/06/23 at 1415, Avoid grapefruit juice, Indications: Prevention of Liver Transplant Rejection 0851 (Given - Provider: Faizan Agarwal RN) tacrolimus immediate-release capsule 0.5 mg 0.5 mg, oral, Every 72 hours, First dose (after last modification) on Wed10/15/23 at 0900, Avoid grapefruit juice, Indications: Prevention of Liver Transplant Rejection ursodioL (ACTIGALL) capsule 600 mg 600 mg, oral, Daily with dinner, First dose on Wed10/04/23 at 1800 1719 (Given - Provider: Judy Peralta RN) 1830 (Given - Provider: Faizan Agarwal, SHAILESH) valGANciclovir (VALCYTE) tablet 900 mg 900 mg, oral, 2 times daily, First dose on Wed10/04/23 at 0030, For 168 days, Do not crush, chew, cut, dissolve, open or otherwise manipulate tablet/capsule., Indications: Blood Stream/Endovascular Infection 08 (Given - Provider: Judy Peralta, RN)2039 (Given - Provider: Yulisa Catalan, RN) 0851 (Given - Provider: Faizan Agarwal, RN)2101 (Given - Provider: Lynne Sifuentes, SHAILESH) 0824 (Given - Provider: Philip Curran, SHAILESH) PRN Medication Order 10/11/2023 10/12/2023 10/13/2023 benzocaine-menthoL (CHLORASEPTIC) lozenge 1 lozenge 1 lozenge, mouth/throat, Every 2 hours PRN, sore throat, other, cough, Starting on 10/10/23 at 1731 benzonatate (TESSALON) capsule 100 mg 100 mg, oral, 3 times daily PRN, cough, if unrelieved by cough drops, Starting on Wed10/10/23 at 1731, Do not crush, chew, cut, dissolve, open or otherwise manipulate tablet/capsule., Indications: Cough 08 (Given - Provid er: Philip Curran RN) Carrier Fluids for Secondary Infusion - 0.9% Sodium Chloride 30 mL, intravenous, As needed, For priming tubing and/or flushing, Starting on 10/03/23 at 2158, 0-250 ml/hr to flush line after IV infusions when no maintenance IV ordered. Infuse 30mL at the same rate as the secondary infusion. Run as primary IV, not intended for KVO. ipratropium-albuteroL (DUO-NEB) 0.5-2.5 mg/3 mL nebulizer solution 3 mL 3 mL, nebulization, Every 4 hours PRN (claims correspondence clerk), wheezing, shortness of breath, Starting on Wed10/04/23 at 1730, Indications: Chronic Obstructive Pulmonary Disease with Bronchospasms methyl salicylate-menthol 15-1 % cream topical, 4 times daily PRN, muscle/joint pain, Starting on Wed10/04/23 at 1001, Apply to affected area: back ondansetron (ZOFRAN) injection 4 mg 4 mg, intravenous, Administer over 2 Minutes, Every 6 hours PRN, nausea, vomiting, Starting on 10/03/23 at 2158, Indications: nausea and vomiting sodium chloride 0.9% flush 0.5-20 mL 0.5-20 mL, intra-catheter, As needed, line care, Starting on 10/03/23 at 2158, Flush volume based on line type and size. Flush before and after each use. documented in this encounter Orders Medications Ordered That John ht Not Have Been Administered Count Last Ordered Date First Ordered Date tacrolimus immediate-release capsule 0.5 mg 3 10/12/2023 10/03/2023 oxyCODONE (ROXICODONE) tablet 5 mg 2 202210/05/2023 polyethylene glycol (MIRALAX) packet 17 g 1 10/06/2023 ipratropium-albuteroL (DUO-N EB) 0.5-2.5 mg/3 mL nebulizer solution 3 mL 1 10/04/2023 lidocaine (XYLOCAINE) 20 mg/ mL (2 %) preservative free injection - ADS Override Pull 1 10/04/2023 Carrier Fluids for Secondary Infusion - 0.9% Sodium Chloride 1 10/03/2023 ondansetron (ZOFRAN) injection 4 mg 1 10/03 spironolactone (ALDACTONE) tablet 50 mg 1 1 12/04/2022 Lab Orders Without Results Count Last Ordered D ate First Ordered Date TRIGLYCERIDES, BODY FLUID 1 10/04/2023 GLUCOSE, BODY FLUID 1 10/03/2023 LACTATE DEHYDROGENASE 1 10/03/2023 PH, PLEURAL FLUID 1 10/03/2023 POCT LACTATE - DEVICE 1 10/03/2023 Imaging Orders Without Results Count Last Order ed Date First Ordered Date PEP THERAPY/AIRWAY CLEARANCE 16 10/12/2023 10/07/2023 EKG Orders Without Results Count Last Ordered D ate First Ordered Date ECG 12-LEAD 1 10/05/2023 Nursing Count Last Ordered Date First Orde red Date WEIGH PATIENT 1 10/03/2023 Consult Count Last Ordered Date First Orde red Date CONSULT TO PULMONARY - INTERVENTIONAL 1 08/2023 CONSULT TO TRANSPLANT INFECTIOUS DISEASE 1 10/07/2023 IP CONSULT TO SOCIAL WORK 1 10/03/2023 Admission Count Last Ordered Date First Orde red Date ADMIT TO INPATIENT 1 10/03/2023 Transfer Count Last Ordered Date First Orde red Date TRANSFER PATIENT TO NEW UNIT 2 10/09/2023 Discharge Count Last Ordered Date First Orde red Date DISCHARGE PATIENT 1 10/13/2023 documented in this encounter Additional Health Concerns Infection Onset Date Last Indicated Resolved Time COVID: Suspected 10/03/2023 10/03/2023 10/03/2023 9:58 AM MATHEMATICIAN RESEARCH Rhino/Enterovirus 10/03/2023 10/03/2023 10/17/2023 3:05 AM MATHEMATICIAN RESEARCH documented as of this encounter Care Teams Underground Utility Locator Relationship Specialty Start Date End Date Beka Nick MD [address] [place] [address] PCP - General Family Practice 05/31/23 04/25/24 Amber Montesinos, RN Shoelace Tipping Machine Operator Transplant 11/17/19 Jil Duncan MD Consulting Physician Infectious Diseases 01/10/20 Anita Gillespie MD Medical Oncologist/Optical Scientist Medical Oncology 10/07/20 Tabitha Hurley MD [address] [place] [address] Consulting Physician Rheumatology 10/22/21 Massiel Gastelum MD [address] [place] [address] Consulting Physician Otolaryngology 08/27/22 documented as of this encounter
--- OUTSIDE RECORDS SUMMARY | 2024-10-28 06:06 | XMS_ITS | Encounter Summary ---
Author Organization [facility] Address [address] [place] [address] Phone Care Team Providers Care Review Assistant Name Role Phone Amber Montesinos RN Unavailable [phone] Jil Duncan MD Unavailable [phone] Anita Gillespie MD Unavailable [phone] Tabitha Hurley MD Unavailable [phone] Massiel Gastelum MD Unavailable [phone] Beka Nick MD Primary Care Provider [phone] Encounter Details Date Type Department Care Team (Late st Contact Info) Description 10/12/2023 Telephone [facility] Infectious Diseases [address] [place] [id number] Leslie Krishna Social History Tobacco Use Types Packs/Day Years Used Date Smoking Tobacco: Never Smokeless Tobacco: Current Chew Alcohol Use Standard Drinks/Week Comments Yes 0 (1 standard drink = 0.6 oz pur e alcohol) occassional OASIS D0700: Social Isolation Answer Da te Recorded Frequency of experiencing loneliness or isolatio n Never 09/04/2023 [facility] Utilities Answer Date Recorded In the [...] on file Legal Sex Male 6:28 AM EMPLOYMENT PROGRAMS ANALYST Gender Identity Not on file Sexual Orientation Straight 08/22/2021 9: 23 AM CDT documented as of this encounter Miscellaneous Notes * Telephone Encounter - Leslie Krishna - 10/12/2023 4:14 PM CST Called and updated insurance information with [employer] OYMENT PROGRAMS ANALYST * Telephone Encounter - Leslie Krishna - 10/12/2023 4:14 PM CST ----- Message from Leslie Krishna sent at 10/12/2023 11:50 AM EMPLOYMENT PROGRAMS ANALYST ----- Rui Nelson, Thanks for covering [place]. I just got a call from [employer] asking for insurance details for a patient Beka Nichols. 1995. Could you kindly help please if they call you ? The number for them is [phone] Thanks a lot [employer] OYMENT PROGRAMS ANALYST documented in this encounter Plan of Treatment Scheduled Procedures Name Priority Associated Diagnoses Date/Ti me COLONOSCOPY Encounter for screening for colorectal cancer in high risk patient Family history of rectal cancer documented as of this encounter Visit Diagnoses Not on filedocumented in this encounter Additional Health Concerns Infection Onset Date Last Indicated Resolved Time Rhino/Enterovirus 10/03/2023 10/03/2023 10/17/2023 3:05 AM EMPLOYMENT PROGRAMS ANALYST documented as of this encounter Care Teams Review Assistant Relationship Specialty Start Date End Date Beka Nick MD [address] [place] [address] PCP - General Family Practice 05/31/23 04/25/24 Amber Montesinos, RN Dismantler Transplant 11/17/19 Jil Duncan MD Consulting Physician Infectious Diseases 01/10/20 Anita Gillespie MD Medical Oncologist/Rn Assessment Medical Oncology 10/07/20 Tabitha Hurley MD [address] [place] [address] Consulting Physician Rheumatology 10/22/21 Massiel Gastelum MD [address] [place] [address] Consulting Physician Otolaryngology 08/27/22 documented as of this encounter
--- OUTSIDE RECORDS SUMMARY | 2024-10-28 06:06 | XMS_ITS | Encounter Summary ---
Author Organization [facility] Address [address] [place] [address] Phone Care Team Providers Care Cordwood Cutter Name Role Phone Amber Montesinos RN Unavailable [phone] Jil Duncan MD Unavailable [phone] Anita Gillespie MD Unavailable [phone] Tabitha Hurley MD Unavailable [phone] Massiel Gastelum MD Unavailable [phone] Beka Nick MD Primary Care Provider [phone] Encounter Details Date Type Department Care Team (Late st Contact Info) Description 10/06/[address] [facility] Oncology [address] Advanced Medicine 7th [place] [address] [place] [address] Neha Pelayo RMA Social History Tobacco Use Types Packs/Day Years Used Date Smoking Tobacco: Never Smokeless Tobacco: Current Chew Alcohol Use Standard Drinks/Week Comments Yes 0 (1 standard drink = 0.6 oz pur e alcohol) occassional OASIS D0700: Social Isolation Answer Da te Recorded Frequency of experiencing loneliness or isolatio n Never 09/04/2023 [facility] Utilities Answer Date Recorded In the past 12 months has [employer], gas, oil, or water company threatened to [...] any clubs o r organizations such as sabianist groups, unions, fraternal or athletic groups, or [...] place to sleep or slept in a alf (including now)? No 10/04/2023 Personal Safety Answer Date Recorded Have you ever been in or are you currently in a harmful physical or emotional relationship or is someone making you feel afraid or unsafe? Denies 10/03/2023 Sex and Gender Information Value Date Recorded Sex Assigned at Not on file Legal Sex Male 6:28 AM KRAFT MILL OPERATOR Gender Identity Not on file Sexual Orientation Straight 08/22/2021 9: 23 AM CDT documented as of this encounter Progress Notes * Neha Pelayo RMA - 10/06/2023 8:37 AM CST Images from the original note were not included. Message Received: Today Neha Pelayo RMA Travis, Alicia Latrese, RMA Received. Previous Messages ----- Message ----- From: Neha Pelayo RMA Sent: 10/04/2023 10:58 AM KRAFT MILL OPERATOR To: TEA Prado has been faxed to medical records for records to be released. ===View-only below this line=== ----- Message ----- From: Yulisa Bhakta, RN Sent: 10/01/2023 9:32 AM KRAFT MILL OPERATOR To: [facility] Lymphoma Medical Assistants Pt went to ER at [facility] last night. Can you request all the notes/records for what done yesterday. P: [phone] Thanks! Yulisa T MILL OPERATOR documented in this encounter Plan of Treatment Scheduled Procedures Name Priority Associated Diagnoses Date/Ti me COLONOSCOPY Encounter for screening for colorectal cancer in high risk patient Family history of rectal cancer documented as of this encounter Visit Diagnoses Not on filedocumented in this encounter Additional Health Concerns Infection Onset Date Last Indicated Resolved Time Rhino/Enterovirus 10/03/2023 10/03/2023 10/17/2023 3:05 AM KRAFT MILL OPERATOR documented as of this encounter Care Teams Cordwood Cutter Relationship Specialty Start Date End Date Beka Nick MD [address] [place] [address] PCP - General Family Practice 05/31/23 04/25/24 Amber Montesinos, SHAILESH Flight Teacher Transplant 11/17/19 Jil Duncan MD Consulting Physician Infectious Diseases 01/10/20 Anita Gillespie MD Medical Oncologist/System Configuration Specialist Medical Oncology 10/07/20 Tabitha Hurley MD [address] [place] [address] Consulting Physician Rheumatology 10/22/21 Massiel Gastelum MD [address] [place] [address] Consulting Physician Otolaryngology 08/27/22 documented as of this encounter
--- OUTSIDE RECORDS SUMMARY | 2024-10-28 06:06 | XMS_ITS | Encounter Summary ---
Author Organization [facility] Healthcare Address [address] [place] [address] Care Team Providers Care Plastic Cablemaking Machine Operator Name Role Phone Amber Montesinos RN Unavailable [phone] Jil Duncan MD Unavailable [phone] Anita Gillespie MD Unavailable [phone] Tabitha Hurley MD Unavailable [phone] Massiel Gastelum MD Unavailable [phone] Beka Nick MD Primary Care Provider [phone] Encounter Details Date Type Department Care Team (Late st Contact Info) Description 09/21/2023 Orders Only [facility] Health Information Management [address] [place] [address] Scanning, Provider Social History Tobacco Use Types [...] on file Legal Sex Male 6:28 AM AP OPERATOR Gender Identity Not on file Sexual Orientation Straight 08/22/2021 9: 23 AM CDT documented as of this encounter Plan of Treatment Scheduled Procedures Name Priority Associated Diagnoses Date/Ti me COLONOSCOPY Encounter for screening for colorectal cancer in high risk patient Family history of rectal cancer documented as of this encounter Procedures Procedure Name Priority Date/Time Associated Diagnosis Comments SCAN - LABS 09/21/2023 3:40 PM AP OPERATOR documented in this encounter Results * SCAN - LABS (09/21/2023 3:40 PM AP OPERATOR) us Provider Scanning Final Result documented in this encounter Visit Diagnoses Not on filedocumented in this encounter Care Teams Plastic Cablemaking Machine Operator Relationship Specialty Start Date End Date Beka Nick MD [address] [place] [address] PCP - General Family Practice 05/31/23 04/25/24 Amber Montesinos, SHAILESH President And Ceo Transplant 11/17/19 Jil Duncan MD Consulting Physician Infectious Diseases 01/10/20 Anita Gillespie MD Medical Oncologist/Studio Camera Operator Medical Oncology 10/07/20 Tabitha Hurley MD [address] [place] [address] Consulting Physician Rheumatology 10/22/21 Massiel Gastelum MD [address] [place] [address] Consulting Physician Otolaryngology 08/27/22 documented as of this encounter
--- OUTSIDE RECORDS SUMMARY | 2024-10-28 06:06 | XMS_ITS | Encounter Summary ---
Author Organization [facility] Healthcare Address [address] [place] [address] Care Team Providers Care Home Security Professional Name Role Phone Amber Montesinos RN Unavailable [phone] Jil Duncan MD Unavailable [phone] Anita Gillespie MD Unavailable [phone] Tabitha Hurley MD Unavailable [phone] Massiel Gastelum MD Unavailable [phone] Beka Nick MD Primary Care Provider [phone] Encounter Details Date Type Department Care Team (Late st Contact Info) Description 10/24/2023 Orders Only [facility] Health Information Management [address] [place] [address] Scanning, Provider Social History Tobacco Use Types Packs/Day Years Used Date Smoking Tobacco: Never Smokeless Tobacco: Current Chew Alcohol Use Standard Drinks/Week Comments Yes 0 (1 standard drink = 0.6 oz pur e alcohol) occassional OASIS D0700: Social Isolation Answer Da te Recorded Frequency of experiencing loneliness or isolatio n Never 09/04/2023 [facility] Utilities Answer Date Recorded In the [...] How often do you attend chur or rastafarian services? 1 to 4 times per year 10/04/2023 Do you belong to any clubs o r organizations such as sabianism groups, unions, fraternal or athletic groups, or [...] on file Legal Sex Male 6:28 AM GARMENT FORM ASSEMBLER Gender Identity Not on file Sexual Orientation Straight 08/22/2021 9: 23 AM CDT documented as of this encounter Plan of Treatment Scheduled Procedures Name Priority Associated Diagnoses Date/Ti me COLONOSCOPY Encounter for screening for colorectal cancer in high risk patient Family history of rectal cancer documented as of this encounter Procedures Procedure Name Priority Date/Time Associated Diagnosis Comments SCAN - LABS 10/24/2023 8:40 AM GARMENT FORM ASSEMBLER documented in this encounter Results * SCAN - LABS (10/24/2023 8:40 AM GARMENT FORM ASSEMBLER) us Provider Scanning Final Result documented in this encounter Visit Diagnoses Not on filedocumented in this encounter Care Teams Home Security Professional Relationship Specialty Start Date End Date Beka Nick MD [address] [place] [address] PCP - General Family Practice 05/31/23 04/25/24 Amber Montesinos, SHAILESH Carpenter Supervisor Wooden Ship Transplant 11/17/19 Jil Duncan MD Consulting Physician Infectious Diseases 01/10/20 Anita Gillespie MD Medical Oncologist/Gun Club Manager Medical Oncology 10/07/20 Tabitha Hurley MD [address] [place] [address] Consulting Physician Rheumatology 10/22/21 Massiel Gastelum MD [address] [place] [address] Consulting Physician Otolaryngology 08/27/22 documented as of this encounter
--- OUTSIDE RECORDS SUMMARY | 2024-10-28 06:06 | XMS_ITS | Encounter Summary ---
Author Organization [facility] Healthcare Address [address] [place] [address] Care Team Providers Care Merchandising Stock Associate Name Role Phone Amber Montesinos RN Unavailable [phone] Jil Duncan MD Unavailable [phone] Anita Gillespie MD Unavailable [phone] Tabitha Hurley MD Unavailable [phone] Massiel Gastelum MD Unavailable [phone] Beka Nick MD Primary Care Provider [phone] Encounter Details Date Type Department Care Team (Late st Contact Info) Description 10/06/2023 Orders Only [facility] Health Information Management [address] [place] [address] Scanning, Provider Social History Tobacco Use Types Packs/Day Years Used Date Smoking Tobacco: Never Smokeless Tobacco: Current Chew Alcohol Use Standard Drinks/Week Comments Yes 0 (1 standard drink = 0.6 oz pur e alcohol) occassional OASIS D0700: Social Isolation Answer Da te Recorded Frequency of experiencing loneliness or isolatio n Never 09/04/2023 [facility] Utilities Answer Date Recorded In the past [...] How often do you attend chur or mandaen services? 1 to 4 times [...] on file Legal Sex Male 6:28 AM DIRECTOR MEDICARE SALES Gender Identity Not on file Sexual Orientation Straight 08/22/2021 9: 23 AM CDT documented as of this encounter Plan of Treatment Scheduled Procedures Name Priority Associated Diagnoses Date/Ti me COLONOSCOPY Encounter for screening for colorectal cancer in high risk patient Family history of rectal cancer documented as of this encounter Procedures Procedure Name Priority Date/Time Associated Diagnosis Comments SCAN - LABS 10/06/2023 8:40 AM DIRECTOR MEDICARE SALES documented in this encounter Results * SCAN - LABS (10/06/2023 8:40 AM DIRECTOR MEDICARE SALES) us Provider Scanning Final Result documented in this encounter Visit Diagnoses Not on filedocumented in this encounter Additional Health Concerns Infection Onset Date Last Indicated Resolved Time Rhino/Enterovirus 10/03/2023 10/03/2023 10/17/2023 3:05 AM DIRECTOR MEDICARE SALES documented as of this encounter Care Teams Merchandising Stock Associate Relationship Specialty Start Date End Date Beka Nick MD [facility] [address] [place] [address] PCP - General Family Practice 05/31/23 04/25/24 Amber Montesinos, SHAILESH Firer Portable Boiler Transplant 11/17/19 Jil Duncan MD Consulting Physician Infectious Diseases 01/10/20 Anita Gillespie MD Medical Oncologist/Electronic Repair Troubleshooter Medical Oncology 10/07/20 Tabitha Hurley MD [address] [facility] [address] [place] [address] Consulting Physician Rheumatology 10/22/21 Massiel Gastelum MD [address] [place] [address] Consulting Physician Otolaryngology 08/27/22 documented as of this encounter
--- OUTSIDE RECORDS SUMMARY | 2024-10-28 06:06 | XMS_ITS | Encounter Summary ---
Author Organization [facility] Address [address] [place] [address] Phone Care Team Providers Care Geriatric Physical Therapist Name Role Phone Amber Montesinos RN Unavailable [phone] Jil Duncan MD Unavailable [phone] Anita Gillespie MD Unavailable [phone] Tabitha Hurley MD Unavailable [phone] Massiel Gastelum MD Unavailable [phone] Beka Nick MD Primary Care Provider [phone] Encounter Details Date Type Department Care Team (Late st Contact Info) Description 10/15/2023 Telephone [facility] Oncology [facility] Advanced Medicine 7th [place] [address] [place] [address] Yulisa Bhakta, SHAILESH Social History Tobacco Use Types Packs/Day Years Used Date Smoking Tobacco: Never Smokeless Tobacco: Current Chew Alcohol Use Standard Drinks/Week Comments Yes 0 (1 standard drink = 0.6 oz pur e alcohol) occassional OASIS D0700: Social Isolation Answer Da te Recorded Frequency of experiencing loneliness or isolatio n Never 09/04/2023 [facility] Utilities Answer Date [...] any clubs o r organizations such as adventism groups, unions, fraternal or athletic groups, or [...] slept in a longterm (including now)? No 10/04/2023 Personal Safety Answer Date Recorded Have you ever been in or are you currently in a harmful physical or emotional relationship or is someone making you feel afraid or unsafe? Denies 10/03/2023 Sex and Gender Information Value Date Recorded Sex Assigned at Not on file Legal Sex Male 6:28 AM DENTAL SALES 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 Gender Identity Not on file Sexual Orientation Straight 08/22/2021 9: 23 AM CDT documented as of this encounter Miscellaneous Notes * Telephone Encounter - Yulisa Bhakta RN - 10/15/2023 3:52 PM CST Spoke with pt's mother regarding previous mychart message. Pt very uncomfortable and having intermittent coughing fits but breathing and oxygenating fine. Mother aware that if pt has issues over the weekend, he will need to go to the ED to be evaluated. Updated that we would like to see pt sooner than his currently scheduled appointment, agreeable to coming 1/3 for OV and labs. No other concerns noted right now, all questions answered. AL SALES 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 * Telephone Encounter - Yulisa Bhakta RN - 10/15/2023 3:51 PM CST Transitional Care Management Discharged from [facility] on 10/13 to Home. Contact: Completed telephone contact Discharge Planning Review Care Coordination Note Reviewed: Yes New equipment: n/a New Treatment: Patient received growth factor? Appointments reviewed with patient. Next return office visit: Ineligible for TCV (due to discharge visit > 14 days). Issues with: Side Effects: Discharge Planning: No Finances: Financial toxicitiy: Denied Medication Review completed with Family Received all discharge medications: Yes Changes include: continue augmentin through 10/17 Antiemetics available: research study with an oral medication: : N/A Current Outpatient Medications Medication Sig Dispense Refill 0.9 % sodium chloride (sodium chloride 0.9%) parenteral solution Infuse 10 mL into a venous catheter as needed (LINE CARE). Indications: LINE CARE amoxicillin-clavulanate (AUGMENTIN) 875-125 mg per tablet Take 1 tablet by mouth 2 (two) times a day for 4 days 8 tablet 0 budesonide (PULMICORT) 0.5 mg/2 mL nebulizer solution Take 0.5 mg by nebulization daily Rinse mouthwith water after use. Do not swallow. (Patient not taking: Reported on 02/08/2023) furosemide (LASIX) 20 mg tablet Take 2 tablets (40 mg total) by mouth daily 60 tablet 1 [facility] heparin lock flush, porcine, Infuse 5 mL into a venous catheter as needed (LINE CARE). Indications: LINE CARE letermovir (PREVYMIS) 480 mg tablet Take 1 tablet (480 mg total) by mouth daily 30 tablet 5 magnesium oxide (MAG-OX) 400 mg [...] mouth every third day 10 capsule 1 ursodioL (ACTIGALL) 300 mg capsule Take 2 capsules (600 mg total) by mouth daily with dinner 180 capsule 3 valGANciclovir (VALCYTE) 450 mg tablet Take 2 tablets (900 mg total) by mouth 2 (two) times a day 120 tablet 5 No current facility-administered medications for this visit. AL SALES 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 documented in this encounter Plan of Treatment Scheduled Procedures Name Priority Associated Diagnoses Date/Ti mo COLONOSCOPY Encounter for screening for colorectal cancer in high risk patient Family history of rectal cancer documented as of this encounter Visit Diagnoses Not on filedocumented in this encounter Additional Health Concerns Infection Onset Date Last Indicated Resolved Time Rhino/Enterovirus 10/03/2023 10/03/2023 10/17/2023 3:05 AM DENTAL SALES 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 documented as of this encounter Care Teams Geriatric Physical Therapist Relationship Specialty Start Date End Date Beka Nick MD [address] [place] [address] PCP - General Family Practice 05/31/23 04/25/24 Amber Montesinos, SHAILESH Sql Architect Transplant 11/17/19 Jil Duncan MD Consulting Physician Infectious Diseases 01/10/20 Anita Gillespie MD Medical Oncologist/Watershed Program Manager Medical Oncology 10/07/20 Tabitha Hurley MD [address] [place] [address] Consulting Physician Rheumatology 10/22/21 Massiel Gastelum MD [address] [place] [address] Consulting Physician Otolaryngology 08/27/22 documented as of this encounter
--- OUTSIDE RECORDS SUMMARY | 2024-10-28 06:06 | XMS_ITS | Encounter Summary ---
Author Organization [facility] Address [address] [place] [address] Care Team Providers Care Commercial Announcer Name Role Phone Genie Montesinos RN Unavailable [phone] Jil Duncan MD Unavailable [phone] Anita Gillespie MD Unavailable [phone] Tabitha Hurley MD Unavailable [phone] Massiel Gastelum MD Unavailable Beka Nick MD Primary Care Provider [phone] Encounter Details Date Type Department Care Team (Late st Contact Info) Description 11/02/2023 Orders Only [facility] Transplant Liver [address] [facility] [address] [place], [place] [id number] Genie Montesinos, RN History of liver transplant (CMS/HCC) (HCC) (Primary Dx) Social History Tobacco Use Types Packs/Day Years Used Date Smoking Tobacco: Never Smokeless Tobacco: Current Chew Alcohol Use Standard Drinks/Week Comments Yes 0 (1 standard drink = 0.6 oz pur e alcohol) occassional OASIS D0700: Social Isolation Answer Da te Recorded Frequency of experiencing loneliness or isolatio n Never 09/04/2023 [facility] Utilities Answer Date Recorded In the past 12 months has [employer], oil, or [employer] threatened to shut off services in your [...] any clubs o r organizations such as jain groups, unions, fraternal or athletic groups, or [...] on file Legal Sex Male 6:28 AM TRUCK CATERER Gender Identity Not on file Sexual Orientation Straight 08/22/2021 9: 23 AM CDT documented as of this encounter Miscellaneous Notes * Addendum Note - Genie Leon RN - 11/02/2023 2:21 PM CSTAddended by: GENIE LEON on: 11/02/2023 04:24 PM Modules accepted: Orders K CATERER documented in this encounter Plan of Treatment Scheduled Procedures Name Priority Associated Diagnoses Date/Ti me COLONOSCOPY Encounter for screening for colorectal cancer in high risk patient Family history of rectal cancer documented as of this encounter Results * Gamma GT (11/03/2023 7:39 AM TRUCK CATERER) GGT 50 10 - 50 Units/L [facility] Comment:Testing performed by : [facility], [address] [place] [id number] Blood 11/03/2023 7:39 AM TRUCK CATERER 11/03/2023 7:40 AM TRUCK CATERER Narrative [facility] - 11/03/2023 8:07 AM TRUCK CATERER Please draw with Dr. Gillespie's next labs us Theodore Gresham MD LAB BLOOD ORDERABLES Final Result [facility] Department [place] [address] * Tacrolimus level trough (11/03/2023 7:29 AM TRUCK CATERER) [facility] Signature Tacrolimus trough <1.0 ng/mL [facility] Comment: Undetectable. ??Please verify that the correct immunosuppressant test was requested. Interpretive Data Testing performed by liquid chromatography-tandem mass spectrometry. ??Therapeutic concentrations vary depending on type of transplanted organ and time elapsed since transplant. ??Typical trough concentrations range from 5-15 ng/mL. ??This test was developed and its performance characteristics determined by the [facility] Laboratory consistent with CLIA requirements. ??This test has not been cleared or approved by the [place] Food and Drug administration. ??Current interpretive data last reviewed 2020. Blood 11/03/2023 7:29 AM TRUCK CATERER 11/03/2023 7:45 AM TRUCK CATERER Narrative [facility] - 11/03/2023 11:57 AM TRUCK CATERER Please draw with Dr. 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) History of liver transplant (CMS/HCC) (HCC) Liver replaced by transplant History of liver transplant (CMS/HCC) (HCC)- Primary Liver replaced by transplant documented in this encounter Care Teams Commercial Announcer Relationship Specialty Start Date End Date Beka Nick MD [address] [place] [address] PCP - General Family Practice 05/31/23 04/25/24 Genie Montesinos, SHAILESH Service Team Leader Transplant 11/17/19 Jil Duncan MD Consulting Physician Infectious Diseases 01/10/20 Anita Gillespie MD Medical Oncologist/Professional Volleyball Player Medical Oncology 10/07/20 Tabitha Hurley MD [address] [facility] [address] [place], [place] [id number] Consulting Physician Rheumatology 10/22/21 Massiel Gastelum MD [address] [place] [address] Consulting Physician Otolaryngology 08/27/22 documented as of this encounter
--- OUTSIDE RECORDS SUMMARY | 2024-10-28 06:06 | XMS_ITS | Encounter Summary ---
Author Organization [facility] Address [address] [place] [address] Phone Care Team Providers Care Desolderer Name Role Phone Amber Montesinos RN Unavailable [phone] Jil Duncan MD Unavailable [phone] Anita Gillespie MD Unavailable [phone] Tabitha Hurley MD Unavailable [phone] Massiel Gastelum MD Unavailable Beka Nick MD Primary Care Provider [phone] Encounter Details Date Type Department Care Team (Late st Contact Info) Description 10/15/2023 Orders Only [facility] Oncology [address] [facility] Advanced Medicine 7th [place] [address] [place] [address] Nancy Butler, AIDEN [address] DIV MEDICAL ONCOLOGY[address] [place] [address] Social History Tobacco Use Types Packs/Day Years Used Date Smoking Tobacco: Never Smokeless Tobacco: Current Chew Alcohol Use Standard Drinks/Week Comments Yes 0 (1 standard drink = 0.6 oz pur e alcohol) occassional OASIS D0700: Social Isolation Answer Da te Recorded Frequency of experiencing loneliness or isolatio n Never 09/04/2023 [facility] Utilities Answer Date Recorded [...] often do you attend chur ch or taoism services? 1 to 4 times per year 10/04/2023 Do you belong to any clubs o r organizations such as tenriism groups, unions, fraternal or athletic groups, or [...] file Legal Sex Male 6:28 AM DIRECTOR OF SAFETY Gender Identity Not on file Sexual Orientation [...] Rhino/Enterovirus 10/03/2023 10/03/2023 10/17/2023 3:05 AM DIRECTOR OF SAFETY documented as of this encounter Care Teams Desolderer Relationship Specialty Start Date End Date Beka Nick MD [facility] [address] [place] [address] PCP - General Family Practice 05/31/23 04/25/24 Amber Montesinos RN Laborer Poultry Hatchery Transplant 11/17/19 Jil Duncan MD Consulting Physician Infectious Diseases 01/10/20 Anita Gillespie MD Medical Oncologist/Service Coordinator Elderly Facility Medical Oncology 10/07/20 Tabitha Hurley MD [address] [place] [address] Consulting Physician Rheumatology 10/22/21 Massiel Gastelum MD [address] [place] [address] Consulting Physician Otolaryngology 08/27/22 documented as of this encounter
--- OUTSIDE RECORDS SUMMARY | 2024-10-28 06:06 | XMS_ITS | Encounter Summary ---
Author Organization [facility] Healthcare Address [address] [place] [address] Care Team Providers Care Patient Monitor Name Role Phone Amber Montesinos RN Unavailable [phone] Jil Duncan MD Unavailable [phone] Anita Gillespie MD Unavailable [phone] Tabitha Hurley MD Unavailable [phone] Massiel Gastelum MD Unavailable [phone] Beka Nick MD Primary Care Provider [phone] Encounter Details Date Type Department Care Team (Latest Contact Info) Description 11/03/2023 6:35 AM SUPERVISOR FABRICATION - 11/03/2023 11:59 PM SUPERVISOR FABRICATION Hospital Encounter [facility] ([facility]) [address] [place] [address] 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 1 to 4 times per year [...] file Legal Sex Male 6:28 AM SUPERVISOR FABRICATION Gender Identity Not on file Sexual Orientation Straight 08/22/2021 9: 23 AM CDT documented as of this encounter Medications at Time of Discharge letermovir (PREVYMIS) 480 mg tabletIndication s:Prophylaxis, Medical Take 1 tablet (480 mg total) by mouth daily 30 tablet 5 09/28/2023 4 furosemide (LASIX) 20 mg tablet Take 2 tablets (40 mg total) by mouth daily 60 tablet 1 10/14/2023 4 [facility] heparin lock flush, porcine,Indicati ons:LINE [...] Name Type Priority Associated Diagnoses Date /Time IgG Lab Routine 11/03/2023 7:3 9 AM SUPERVISOR FABRICATION Scheduled Orders Name Type Priority Associated Diagnoses Orde r Schedule IgG Lab Routine Once for 1 Occ urrences starting 11/03/2023 until 11/03/2023 Scheduled Procedures Name Priority Associated Diagnoses Date/Ti me COLONOSCOPY Encounter for screening for colorectal cancer in high risk patient Family history of rectal cancer documented as of this encounter Procedures Procedure Name Priority Date/Time Associated Diagnosis Comments EGFR Routine 11/03/2023 7:39 AM SUPERVISOR FABRICATION 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) CBC WITH AUTO DIFFERENTIAL Routine 11/03/2023 7:39 AM SUPERVISOR FABRICATION 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) MANUAL DIFFERENTIAL Routine 11/03/2023 7 :39 AM SUPERVISOR FABRICATION 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) LACTATE DEHYDROGENASE Routine 11/03/2023 7:39 AM SUPERVISOR FABRICATION 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) GAMMA GT Routine 11/03/2023 7:39 AM SUPERVISOR FABRICATION History of liver transplant (CMS/HCC) (HCC) IGG Routine 11/03/2023 7:39 AM SUPERVISOR FABRICATION 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) COMPREHENSIVE METABOLIC PANEL Routine 11/03/2023 7:39 AM SUPERVISOR FABRICATION 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) TACROLIMUS LEVEL, TROUGH Routine 11/03/2023 7:29 AM SUPERVISOR FABRICATION History of liver transplant (CMS/HCC) (HCC) documented in this encounter Results * (ABNORMAL) IgG (11/03/2023 7:39 AM SUPERVISOR FABRICATION) Immunoglobulin G 574.0(L) 700.0 - 1,600.0 mg/dL [facility] Blood 11/03/2023 7:39 AM SUPERVISOR FABRICATION 11/03/2023 8:58 AM SUPERVISOR FABRICATION us Anita Gillespie MD LAB BLOOD ORDERABLES Final Result Performing Organization Address City/State/[facility] Co de Phone Number [facility] Department [place] [address] * eGFR (11/03/2023 7:39 AM SUPERVISOR FABRICATION) eGFR >90 >=60 mL/min/1. 73 m2 [facility] Comment: Interpretive Data Reference Interval Normal [...] Inclusion of Race in Diagnosing Kidney Disease, PENNY 2020). The CKD-EPI equation should not be used for patients with unstable renal function and has not been validated in children and those over 70. Current interpretive data was last reviewed 2021. Testing performed by: [facility], [address] [place], [place] [phone] Blood 11/03/2023 7:39 AM SUPERVISOR FABRICATION 11/03/2023 7:40 AM SUPERVISOR FABRICATION us Anita Gillespie MD LAB BLOOD ORDERABLES Final Result [facility] [place] [address] * (ABNORMAL) Manual Differential (11/03/2023 7:39 AM SUPERVISOR FABRICATION) Differential Manual [facility] Comment:Testing performed by : [facility], [address] [place] [phone] Cells Counted 100 [facility] Comment:Testing performed by : [facility], [address] [place] [phone] Neutrophil abs 4.4 1.5 - 6.5 K/cumm [facility] Comment:Testing performed by : [facility], [address] [place] [phone] Imm gran abs 0.0 0.0 - 0.1 K/cumm [facility] Comment:Testing performed by : [facility], [address] [place] [phone] Lymphocyte abs 1.2 0.8 - 3.3 K/cumm [facility] Comment:Testing performed by : [address] [phone] Monocyte abs 1.3(H) 0.2 - 0.8 K/cumm [facility] Comment:Testing performed by : [address] [phone] Eosinophil abs 0.1 0.0 - 0.5 K/cumm [facility] Comment:Testing performed by : [facility], [address] [place] [phone] Basophil abs 0.2(H) 0.0 - 0.1 K/cumm [facility] Comment:Testing performed by : [facility], [address] [place] [phone] Neutrophil pct 60.0 % [facility] Comment:Testing performed by : [facility], [address] [place] [phone] Lymphocyte pct 17.0 % [facility] Comment:Testing performed by : [facility], [address] [place] [phone] Monocyte pct 18.0 % [facility] Comment:Testing performed by : [facility], [address] [place] [phone] Eosinophil pct 1.0 % [facility] Comment:Testing performed by : [facility], [address] [place] [phone] Basophil pct 3.0 % [facility] Comment:Testing performed by : [facility], [address] [place] [phone] Band Neutrophil pct 1.0 0.0 - 6.0 % [facility] Comment:Testing performed by : [facility], [address] [place] [phone] Metamyelocyte pct 0.0 0.0 - 0.0 % [facility] Comment:Testing performed by : [facility], [address] [place] [phone] Myelocyte pct 0.0 0.0 - 0.0 % [facility] Comment:Testing performed by : [facility], [address] [place] [phone] Promyelocyte pct 0.0 0.0 - 0.0 % [facility] Comment:Testing performed by : [facility], [address] [place] [phone] Variant lymph pct 0.0 0.0 - 0.0 % [facility] Comment:Testing performed by : [facility], [address] [place] [phone] Macrocytes 8-15/HPF(A) [facility] Comment:Testing performed by : [facility], [address] [place] [phone] Target cells 3-7/HPF(A) [facility] Comment:Testing performed by : [facility], [address] [place] [phone] Platelet estimate Adequate [facility] Comment:Testing performed by : [facility], [address] [place] [phone] Blood 11/03/2023 7:39 AM SUPERVISOR FABRICATION 11/03/2023 7:40 AM SUPERVISOR FABRICATION Anita Gillespie MD LAB BLOOD ORDERABLES Final Result Performing Organization Address [facility] [place] [address] * Gamma GT (11/03/2023 7:39 AM SUPERVISOR FABRICATION) GGT 50 10 - 50 Units/L [facility] Comment:Testing performed by : [facility], [address] [place] [phone] Blood 11/03/2023 7:39 AM SUPERVISOR FABRICATION 11/03/2023 7:40 AM SUPERVISOR FABRICATION Narrative [facility] - 11/03/2023 8:07 AM SUPERVISOR FABRICATION Please draw with Dr. Gillespie's next labs Result [facility] Theodore Gresham MD LAB BLOOD ORDERABLES Final Result Performing Organization Address [facility] [place] [address] * (ABNORMAL) Lactate dehydrogenase (LD) (11/03/2023 7:39 AM SUPERVISOR FABRICATION) Lactate dehydrogenase (LDH) 387(H) 100 - 250 Units/L [facility] Comment:Testing performed by : [facility], [address] [place] [phone] Blood 11/03/2023 7:39 AM SUPERVISOR FABRICATION 11/03/2023 7:40 AM SUPERVISOR FABRICATION Anita Gillespie MD LAB BLOOD ORDERABLES Final Result [facility] [place] [address] * (ABNORMAL) Comprehensive metabolic panel (11/03/2023 7:39 AM SUPERVISOR FABRICATION) Sodium 137 135 - 145 mmol/L [facility] Comment:Testing performed by : [facility], [address] [place] [phone] Potassium, pl 4.2 3.3 - 4.9 mmol/L [facility] Comment:Testing performed by : [facility], [address] [place] [phone] Chloride 105 97 - 110 mmol/L [facility] Comment:Testing performed by : [facility], [address] [place] [phone] CO2 26 22 - 32 mmol/L [facility] Comment:Testing performed by : [facility], [address] [place] [phone] Anion gap 6 2 - 15 mmol/L [facility] Comment:Testing performed by : [facility], [address] [place] [phone] BUN 13 6 - 25 mg/dL [facility] Comment:Testing performed by : [facility], [address] [place] [phone] Creatinine 0.84 0.80 - 1.30 mg/dL [facility] Comment:Testing performed by : [facility], [address] [place] [phone] Glucose 90 70 - 199 mg/dL [facility] Comment: Interpretive Data Fasting glucose [...] Current interpretive data was last revised 2022. Testing performed by: [facility], [address] [place] [phone] Calcium 8.2(L) 8.5 - 10.3 mg/dL [facility] Comment:Testing performed by : [facility], [address] [place] [phone] Bilirubin, total 2.4(H) 0.1 - 1.2 mg/dL [facility] Comment:Testing performed by : [facility], [address] [place] [phone] Protein, pl 5.2(L) 6.5 - 8.5 g/dL [facility] Comment:Testing performed by : [facility], [address] [place] [phone] Albumin 2.8(L) 3.5 - 5.0 g/dL [facility] Comment:Testing performed by : [facility], [address] [place] [phone] Alk phos 265(H) 40 - 130 Units/L [facility] Comment:Testing performed by : [facility], [address] [place] [phone] ALT 36 7 - 55 Units/L [facility] Comment:Testing performed by : [facility], [address] [place] [phone] AST 49 10 - 50 Units/L [facility] Comment:Testing performed by : [address] [phone] Blood 11/03/2023 7:39 AM SUPERVISOR FABRICATION 11/03/2023 7:40 AM SUPERVISOR FABRICATION us Anita Gillespie MD LAB BLOOD ORDERABLES Final Result [facility] Department [place] [address] * (ABNORMAL) CBC with auto differential (11/03/2023 7:39 AM SUPERVISOR FABRICATION) WBC 7.3 3.8 - 9.8 K/cumm [facility] Comment:Testing performed by : [facility], [address] [place] [address] Hgb 12.0(L) 13.8 - 17.2 g/dL [facility] Comment:Testing performed by : [facility], [address] [place] [address] Hct 34.7(L) 40.7 - 50.3 % [facility] Comment:Testing performed by : [facility], [address] [place] [address] Plt 294 140 - 440 K/cumm [facility] Comment:Testing performed by : [facility], [address] [place] [address] MPV 7.7 6.8 - 10.4 fL [facility] Comment:Testing performed by : [place] [address] RBC 2.99(L) 4.50 - 5.70 M/cumm [facility] Comment:Testing performed by : [place] [address] MCV 115.9(H) 80.0 - 97.6 fL [facility] Comment:Testing performed by : [place] [address] MCH 40.2(H) 26.7 - 33.7 pg [facility] Comment:Testing performed by : [place] [address] MCHC 34.7 32.7 - 35.5 g/dL [facility] Comment:Testing performed by : [place] [address] RDW CV 15.5(H) 11.8 - 14.6 % [facility] Comment:Testing performed by : [place] [address] NRBC abs 0.00 0.00 - 0.01 K/cumm [facility] Comment:Testing performed by : [place] [address] Blood 11/03/2023 7:39 AM SUPERVISOR FABRICATION 11/03/2023 7:40 AM SUPERVISOR FABRICATION us Anita Gillespie MD LAB BLOOD ORDERABLES Final Result Performing Organization Address [facility] Co de Phone Number [facility] Department [place] [address] * Tacrolimus level trough (11/03/2023 7:29 AM SUPERVISOR FABRICATION) [facility] Signature Tacrolimus trough <1.0 ng/mL [facility] Comment: Undetectable. ??Please verify that the correct immunosuppressant test was requested. Interpretive Data Testing performed by liquid chromatography-tandem mass spectrometry. ??Therapeutic concentrations vary depending on type of transplanted organ and time elapsed since transplant. ??Typical trough concentrations range from 5-15 ng/mL. ??This test was developed and its performance characteristics determined by the [facility] consistent with CLIA requirements. ??This test has not been cleared or approved by the [place] Food and Drug administration. ??Current interpretive data last reviewed 2020. Blood 11/03/2023 7:29 AM SUPERVISOR FABRICATION 11/03/2023 7:45 AM SUPERVISOR FABRICATION Narrative [facility] - 11/03/2023 11:57 AM SUPERVISOR FABRICATION Please draw with Dr. Gillespie's next labs us Theodore Gresham MD LAB BLOOD ORDERABLES Final Result Performing Organization Address [facility] de Phone Number [facility] Department [place] [address] documented in this encounter Visit Diagnoses Diagnosis 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) History of liver transplant (CMS/HCC) (HCC) Liver replaced by transplant documented in this encounter Care Teams Patient Monitor Relationship Specialty Start Date End Date Beka Nick MD [address] [place] [address] PCP - General Family Practice 05/31/23 04/25/24 Amber Montesinos RN Rack Carrier Transplant 11/17/19 Jil Duncan MD Consulting Physician Infectious Diseases 01/10/20 Anita Gillespie MD Medical Oncologist/Gear Milling Machine Set Up Operator Medical Oncology 10/07/20 Tabitha Hurley MD [address] [facility] [address] [place], [place] [id number] Consulting Physician Rheumatology 10/22/21 Massiel Gastelum MD [address] [place] [address] Consulting Physician Otolaryngology 08/27/22 documented as of this encounter
--- OUTSIDE RECORDS SUMMARY | 2024-10-28 06:07 | XMS_ITS | Encounter Summary ---
Author Organization [facility] Healthcare Address [address] [place] [address] Care Team Providers Care Warehousing Technician Name Role Phone Amber Montesinos RN Unavailable [phone] Jil Duncan MD Unavailable [phone] Anita Gillespie MD Unavailable [phone] Tabitha Hurley MD Unavailable [phone] Massiel Gastelum MD Unavailable [phone] Beka Nick MD Primary Care Provider [phone] Encounter Details Date Type Department Care Team (Late st Contact Info) Description 09/04/2023 Plan of Care Documentation [facility] [place] [address] [address] [place] [address] Social History Tobacco Use Types [...] file Legal Sex Male 6:28 AM WEB SERVICES ARCHITECT Gender Identity Not on file Sexual Orientation Straight 08/22/2021 9: 23 AM CDT documented as of this encounter Miscellaneous Notes * Home Health Plan of Care Certification Statement - Malaika Wyatt - 09/14/2023 12:13 PM CST I certify that the above stated patient is homebound and has a need for intermittent snf, physical therapy and/or speech or occupational therapy services for their current diagnosis(es) as outlined in the initial plan of care. The patient is under my care, and I have authorized serviceson this plan of care and will periodically review the plan. The patient had a [id number] encounter with Tony Baca MD on 09/01/2023 and the encounter was related to the primary reason for home health care. SERVICES ARCHITECT documented in this encounter Plan of Treatment Scheduled Procedures Name Priority Associated Diagnoses Date/Ti me COLONOSCOPY Encounter for screening for colorectal cancer in high risk patient Family history of rectal cancer documented as of this encounter Visit Diagnoses Not on filedocumented in this encounter Care Teams Warehousing Technician Relationship Specialty Start Date End Date Beka Nick MD [address] [facility] [address] [place] [address] PCP - General Family Practice 05/31/23 04/25/24 Amber Montesinos, SHAILESH Program Management Analyst Transplant 11/17/19 Jil Duncan MD Consulting Physician Infectious Diseases 01/10/20 Anita Gillespie MD Medical Oncologist/Pilot Plant Technician Medical Oncology 10/07/20 Tabitha Hurley MD [address] [place], [place] [id number] Consulting Physician Rheumatology 10/22/21 Massiel Gastelum MD [address] [place] [address] Consulting Physician Otolaryngology 08/27/22 documented as of this encounter
--- OUTSIDE RECORDS SUMMARY | 2024-10-28 06:07 | XMS_ITS | Encounter Summary ---
Author Organization [facility] Healthcare Address [address] [place] [address] Care Team Providers Care Public Works Commissioner Name Role Phone Amber Montesinos RN Unavailable [phone] Jil Duncan MD Unavailable [phone] Anita Gillespie MD Unavailable [phone] Tabitha Hurley MD Unavailable [phone] Massiel Gastelum MD Unavailable [phone] Adi Nick MD Primary Care Provider [phone] Encounter Details Date Type Department Care Team (Late st Contact Info) Description 09/08/2023 Home Care Visit [facility] [address] [address] [address] [place] [address] Jaylyn Brown RN SN TRIAGE ENCOUNTER Social History Tobacco Use Types Packs/Day [...] on file Legal Sex Male 6:28 AM JIG BORER Gender Identity Not on file Sexual Orientation Straight 08/22/2021 9: 23 AM CDT documented as of this encounter Miscellaneous Notes * Triage Note - Jaylyn Brown RN - 09/08/2023 10:36 PM CST Reason for call: Infusion patient Mailmaster: Nav Relationship to patient: with [facility] Lab Phone number of contact lens fitter: [phone] Return call time: 10:39pm Communication details: [facility] Call Center : Sep 08, 2023 10:36 PM NAV W/ LAB AT [facility] ADI NICHOLS [phone] W [id number] 11 02 1994 RE: PLEASE CALL, WE WERE UNABLE TO RUN HIS LAB TEST. THIS IS MY SECOND CALL WITH NO CALL BACK. 9:47pm 1st call sent to Infusion and Nav received no call back. 10:39pm 2nd call This RN returned call and she states a CMV PCR was ordered and they are unable to run it. Reports it was sent in a red top tube and they need a lavender. Informed Nav that this is an infusion patient and she states she will call the pharmacist jd edwards consultant. No further needs from Triage. Follow-up: Notified Rosalio Gomes, and infusion pharmacy [facility] documented in this encounter Plan of Treatment Scheduled Procedures Name Priority Associated Diagnoses Date/Ti oh COLONOSCOPY Encounter for screening for colorectal cancer in high risk patient Family history of rectal cancer documented as of this encounter Visit Diagnoses Not on filedocumented in this encounter Home Health Visit - Care Plan Visit Details Visit Type -SN Triage Encoun ter Discipline -Alf Problems Problem Description Start Date Status Goals Interventions Safety concerns Disciplines: Alf Safety needs related to infusion administration 09/04/2023 Active - 1 problem intervention scheduled/documen mohsen in this visit Learning/Teachin g Needs - IV Therapy Disciplines: Alf Teaching and learning needs for performing home IV therapy 09/04/2023 Active - 6 problem interventions scheduled/documen mohsen in this visit Medications Disciplines: Alf Management of home medications 09/04/2023 Active 1 goal linked to scheduled/docume nted intervention 6 goal interventions scheduled/documen mohsen in this visit Monitor patient's vital signs every home health visit Disciplines: SN, PT, OT, PRESSURE WELDER, MANAGER SCIENCE, Skilled Disciplines Monitor patient's vital signs every home health visit. 09/04/2023 Active 1 goal linked to scheduled/docume nted intervention 1 goal intervention scheduled/documen mohsen in this visit Infection Prevention Disciplines: Skilled Disciplines Infection Prevention CMV Positive : [place] Precautions (OSHA, 2022). Casual contact doesn't transmit CMV (CDC, 2022) 09/04/2023 Active 1 goal linked to scheduled/docume nted intervention 1 goal intervention scheduled/documen mohsen in this visit Safety concerns Disciplines: Skilled Disciplines Alteration in safety 09/04/2023 Active 1 goal linked to scheduled/docume nted intervention 1 goal intervention scheduled/documen mohsen in this visit Goals Goal Associated Problem Outcome Goal Met? Visit Notes Understand and follow medication therapy Description: Patient/caregiver will understand and follow prescribed medication therapy as evidence by having up to date medication list in home & ability to verbalize purpose, schedule, and side effects by the end of the episode of care Medications No Measure vital signs during every home health visit during episode of care Description: Home practice clinician to measure vital signs during every home health visit during episode of care. Monitor patient's vital signs every home health visit No Verbalize signs of infection Description: Patient/caregiver will demonstrate knowledge of infection prevention strategies by verbalizing signs and symptoms of infection. Infection Prevention No Demonstrate use of safety precautions Description: Patient/caregiver maintains safe home environment as evidenced by remaining free from injury and demonstrates use of safety precautions. Safety concerns No Interventions Intervention Associated Problem/Goal Status Variance Visit Notes Instruct on IV complications Description: Instruct patient/caregiver on how to manage breaks in line, signs/symptoms of complications, who to contact for complications and how to contact the nurse, MD and infusion service Problem:Safety concerns Scheduled Instruct on IV supplies Description: Instruct patient/caregiver in how to gather supplies, how to restock IV supplies in the home, prepare supplies, administer IV medication and disconnect IV medication, inspecting solution and supplies before infusing, and waste disposal. Problem:Learning/Teaching Needs - IV Therapy Scheduled Instruct Infection Prevention Description: Instruct patient/caregiver on strategies to prevent infection: frequent/proper hand-washing techniques, Standard precautions, avoid crowds and persons with known infections, staying current with immunizations, s/s of infection, use of incentive spirometer, use of antibiotics and encourage adequate diet and fluid intake. Educated on signs and symptoms of infection IE: fever, odor, change in color, increased amount of drainage, purulent drainage, warmth, universal precautions and home infection control measures and when to notify HH nurse and/or physician. CMV contact precautions. [place] Precautions (OSHA, 2022). Casual contact doesn't transmit CMV (CDC, 2022). Problem:Learning/Teaching Needs - IV Therapy Scheduled IV Administration Description: Skilled Nurse to instruct patient/caregiver on how to properly administer medication saline and heparin. Skilled Nurse to instruct patient/caregiver to administer IV medication as ordered including saline and heparin flushes. Reason for Therapy: Foscarnet 6000 mg q12h to be infused via elastomeric device at 250 mL/hour. Infuse 500 ml of 0.9% Normal Saline solution every 12 hours via rate flow tubing over 1 hour at wide open. Problem:Learning/Teaching Needs - IV Therapy Scheduled Dressing change Description: Skilled Nurse to instruct patient/caregiver on dressing change frequency. Central venous line dressing to be changed 48 hours if there is gauze under the occlusive dressing, dressing is soiled or non-occlusive. Weekly IV site dressing changes to be performed if no issues. Securement device to be used with appropriate lines. Skilled Nurse to instruct patient/caregiver on the purpose of doing measurements of line migration and arm circumference weekly and PRN. Type of line: RUE PICC DL Problem:Learning/Teaching Needs - IV Therapy Scheduled IV Access Care/Maintenance Description: Skilled Nurse to change line dressing change within 48 hours if there is gauze under the occlusive dressing, dressing is soiled, or non-occlusive. Weekly IV site dressing changes to be performed if no issues. Skilled Nurse to measure line migration and arm circumference at SOC and weekly with dressing change. Skilled Nurse to place disinfecting caps to the end of each line upon completion of infusion/flushes. Problem:Learning/Teaching Needs - IV Therapy Scheduled Instruct on IV flush Description: Instruct patient/caregiver in how to perform flushing of IV line according to MD orders or protocol. Problem:Learning/Teaching Needs - IV Therapy Scheduled Instruct medications Description: Instruct patient/caregiver in medication administration, purpose, dosages, preparation, scheduling, side effects, food/drug interactions, storage, drug allergies, and potential complications. Medications instructed on: Foscarnet 6000 mg q12h to be infused via elastomeric device at 250 mL/hour. Infuse 500 ml of 0.9% Normal Saline solution every 12 hours via rate flow tubing over 1 hour at wide open. LOT: 09/07/23 Problem:Medications Goal:Understand and follow medication therapy Scheduled Instruct on drug interactions Description: Perform drug interaction screening and instruct patient on severe drug interactions. Notify MD of any severe interactions Problem:Medications Goal:Understand and follow medication therapy Scheduled Instruct on high risk medications Description: Instruct patient/caregiver on high-risk/high-alert medications, including: anti-convulsant, anti-retroviral, anti-coagulant, chemotherapeutic, hypo-glycemic, immunosuppressant, insulin, and opioid. Specifically: Foscarnet, antiviral. Problem:Medications Goal:Understand and follow medication therapy Scheduled Instruct on medication delivery system Description: Instruct patient/caregiver on medication delivery system. Keep up to date medication list with patient Problem:Medications Goal:Understand and follow medication therapy Scheduled Instruct on medication side effects Description: Instruct patient/caregiver to monitor for side effects and adverse reactions Problem:Medications Goal:Understand and follow medication therapy Scheduled Monitor effectiveness of drug therapy Description: Monitor effectiveness of patient's drug therapy Problem:Medications Goal:Understand and follow medication therapy Scheduled Monitor Vital Signs Description: Monitor blood pressure, pulse, oxygen saturation, respirations Problem:Monitor patient's vital signs every home health visit Goal:Measure vital signs during every home health visit during episode of care Scheduled Educate Patient on Infection Prevention Description: Instruct patient on signs and symptoms of infection IE: fever, odor, change in color, increased amount of drainage, purulent drainage, warmth. Problem:Infection Prevention Goal:Verbalize signs of infection Scheduled Assess safety Description: Assess patient safety Problem:Safety concerns Goal:Demonstrate use of safety precautions Scheduled documented in this encounter Care Teams Public Works Commissioner Relationship Specialty Start Date End Date Adi Nick MD [address] [place] [address] PCP - General Family Practice 05/31/23 04/25/24 Amber Montesinos, SHAILESH Wool Supplier Transplant 11/17/19 Jil Duncan MD Consulting Physician Infectious Diseases 01/10/20 Anita Gillespie MD Medical Oncologist/Backup Operator Medical Oncology 10/07/20 Tabitha Hurley MD [address] [place] [address] Consulting Physician Rheumatology 10/22/21 Massiel Gastelum MD [address] [place] [address] Consulting Physician Otolaryngology 08/27/22 documented as of this encounter
--- OUTSIDE RECORDS SUMMARY | 2024-10-28 06:07 | XMS_ITS | Encounter Summary ---
Author Organization [facility] Address [address] [place] [address] Phone Care Team Providers Care Oiler And Greaser Name Role Phone Amber Montesinos RN Unavailable [phone] Jil Duncan MD Unavailable [phone] Anita Gillespie MD Unavailable [phone] Tabitha Hurley MD Unavailable [phone] Massiel Gastelum MD Unavailable [phone] Beka Nick MD Primary Care Provider [phone] Encounter Details Date Type Department Care Team (Late st Contact Info) Description 09/07/2023 Telephone [facility] Oncology [facility] Advanced Medicine 7th [place] [address] [place] [address] Lesvia Crenshaw RN Social History Tobacco Use Types Packs/Day [...] on file Legal Sex Male 6:28 AM LENS MAKER Gender Identity Not on file Sexual Orientation Straight 08/22/2021 9: 23 AM CDT documented as of this encounter Miscellaneous Notes * Telephone Encounter - Lesvia Crenshaw RN - 09/07/2023 2:28 PM LENS MAKER TCV call attempt #1. Left VM. Will try again. MAKER documented in this encounter Plan of Treatment Scheduled Procedures Name Priority Associated Diagnoses Date/Ti me COLONOSCOPY Encounter for screening for colorectal cancer in high risk patient Family history of rectal cancer documented as of this encounter Visit Diagnoses Not on filedocumented in this encounter Care Teams Oiler And Greaser Relationship Specialty Start Date End Date Beka Nick MD [address] [place] [address] PCP - General Family Practice 05/31/23 04/25/24 Amber Montesinos, SHAILESH Cell Tender Helper Transplant 11/17/19 Jil Duncan MD Consulting Physician Infectious Diseases 01/10/20 Anita Gillespie MD Medical Oncologist/[facility] Medical Oncology 10/07/20 Tabitha Hurley MD [address] [place] [address] Consulting Physician Rheumatology 10/22/21 Massiel Gastelum MD [address] [place] [address] Consulting Physician Otolaryngology 08/27/22 documented as of this encounter
--- OUTSIDE RECORDS SUMMARY | 2024-10-28 06:07 | XMS_ITS | Encounter Summary ---
Author Organization [facility] Healthcare Address [address] [place] [address] Care Team Providers Care Supply Chain Logistics Manager Name Role Phone Amber Montesinos RN Unavailable [phone] Jil Duncan MD Unavailable [phone] Anita Gillespie MD Unavailable [phone] Tabitha Hurley MD Unavailable [phone] Massiel Gastelum MD Unavailable [phone] Beka Nick MD Primary Care Provider [phone] Encounter Details Date Type Department Care Team (Latest Contact Info) Description 09/08/2023 6:59 PM [facility] - 09/08/2023 11:59 PM [facility] Hospital Encounter [address] [address] Discharge Disposition: Discharge to home [...] on file Legal Sex Male 6:28 AM STONEHAND Gender Identity Not on file Sexual Orientation Straight 08/22/2021 9: 23 AM CDT documented as of this encounter Medications at Time of Discharge 0.9 % sodium chloride (sodium chloride 0.9%) parenteral solutionIndicati ons:LINE CARE Infuse 10 mL into a venous catheter as needed (LINE CARE). Indications: LINE CARE 4 budesonide (PULMICORT) 0.5 mg/2 mL nebulizer solution Take 0.5 mg by nebulization daily Rinse mouth with water after use. Do not swallow. 4 furosemide (LASIX) 40 mg tablet Take 1 tablet (40 mg total) by mouth daily 30 tablet 11 09/04/2023 3 [facility] heparin lock flush, porcine,Indicati ons:LINE CARE Infuse 5 mL (50 Units total) into a venous catheter as needed (LINE CARE) 4 letermovir (PREVYMIS) 480 mg tablet Take 1 tablet (480 mg total) by mouth daily 30 tablet 08/31/2023 3 magnesium oxide (MAG-OX) 400 mg (241.3 mg elemental magnesium) tabletIndication s:hypomagnesemia Take 1 tablet (400 mg total) by mouth 2 (two) times a day for 7 days Take while on foscarnet 14 tablet 09/03/2023 4 spironolactone (ALDACTONE) 100 mg tablet Take 1 tablet (100 mg total) by mouth daily 30 tablet 11 09/04/2023 3 tacrolimus 0.5 mg immediate-releas e capsuleIndicatio ns:Prevention of Liver Transplant Rejection Take 1 capsule (0.5 mg total) by mouth daily 30 capsule 09/03/2023 3 ursodioL (ACTIGALL) 300 mg capsuleIndicatio ns:Cholelithiasi s Prevention Take 2 capsules (600 mg total) by mouth daily with dinner 180 capsule 3 07/27/2023 4 valGANciclovir (VALCYTE) 450 mg tabletIndication s:Blood Stream/Endovascu lar Infection Take 2 tablets (900 mg total) by mouth 2 (two) times a day 120 tablet 11 09/03/2023 3 documented as of this encounter Discharge Disposition [...] on filedocumented in this encounter Care Teams Supply Chain Logistics Manager Relationship Specialty Start Date End Date Beka Nick MD [address] [place] [address] PCP - General Family Practice 05/31/23 04/25/24 Amber Montesinos RN Claim Trainee Transplant 11/17/19 Jil Duncan MD Consulting Physician Infectious Diseases 01/10/20 Anita Gillespie MD Medical Oncologist/Social Science Instructor Medical Oncology 10/07/20 Tabitha Hurley MD [address] [place] [address] Consulting Physician Rheumatology 10/22/21 Massiel Gastelum MD [address] [place] [address] Consulting Physician Otolaryngology 08/27/22 documented as of this encounter
--- OUTSIDE RECORDS SUMMARY | 2024-10-28 06:07 | XMS_ITS | Encounter Summary ---
Author Organization [facility] Healthcare Address [address] [place] [address] Care Team Providers Care Valet Runner Name Role Phone Amber Montesinos RN Unavailable [phone] Jil Duncan MD Unavailable [phone] Anita Gillespie MD Unavailable [phone] Tabitha Hurley MD Unavailable [phone] Massiel Gastelum MD Unavailable [phone] Beka Nick MD Primary Care Provider [phone] Encounter Details Date Type Department Care Team (Late st Contact Info) Description 09/18/2023 Orders Only [facility] Information Management [address] [place] [address] Scanning, Provider Social History Tobacco Use Types [...] on file Legal Sex Male 6:28 AM B2B APPOINTMENT SETTER Gender Identity Not on file Sexual Orientation Straight 08/22/2021 9: 23 AM CDT documented as of this encounter Plan of Treatment Scheduled Procedures Name Priority Associated Diagnoses Date/Ti me COLONOSCOPY Encounter for screening for colorectal cancer in high risk patient Family history of rectal cancer documented as of this encounter Procedures Procedure Name Priority Date/Time Associated Diagnosis Comments SCAN - LABS 09/18/2023 11:56 AM B2B APPOINTMENT SETTER documented in this encounter Results * SCAN - LABS (09/18/2023 11:56 AM B2B APPOINTMENT SETTER) us Provider Scanning Final Result documented in this encounter Visit Diagnoses Not on filedocumented in this encounter Care Teams Valet Runner Relationship Specialty Start Date End Date Beka Nick MD [address] [place] [address] PCP - General Family Practice 05/31/23 04/25/24 Amber Montesinos, SHAILESH Attendant Sales Transplant 11/17/19 Jil Duncan MD Consulting Physician Infectious Diseases 01/10/20 Anita Gillespie MD Medical Oncologist/Architectural Administrative Assistant Medical Oncology 10/07/20 Tabitha Hurley MD [address] [place] [address] Consulting Physician Rheumatology 10/22/21 Massiel Gastelum MD [address] [place] [address] Consulting Physician Otolaryngology 08/27/22 documented as of this encounter
--- OUTSIDE RECORDS SUMMARY | 2024-10-28 06:07 | XMS_ITS | Encounter Summary ---
Author Organization [facility] Healthcare Address [address] [place] [address] Care Team Providers Care Irrigation Engineer Name Role Phone Amber Montesinos RN Unavailable [phone] Jil Duncan MD Unavailable [phone] Anita Gillespie MD Unavailable [phone] Tabitha Hurley MD Unavailable [phone] Massiel Gastelum MD Unavailable [phone] Beka Nick MD Primary Care Provider [phone] Encounter Details Date Type Department Care Team (Latest Contact Info) Description 09/08/2023 12:00 PM PACKAGER Home Care Visit [facility] - [address] [address] [address] [place] [address] Judah Starks, RN SN NON OASIS DISCHARGE Social History [...] on file Legal Sex Male 6:28 AM PACKAGER Gender Identity Not on file Sexual Orientation Straight 08/22/2021 9: 23 AM CDT documented as of this encounter Last Filed Vital Signs Vital Sign Reading Time Taken Comments Blood Pressure 112/60 09/08/2023 2:10 PM PACKAGER Pulse 80 09/08/2023 2:10 PM PACKAGER Temperature 36.7 ??C (98 ??F) 09/08/2023 2:10 PM PACKAGER Respiratory Rate 16 09/08/2023 2:10 PM PACKAGER Oxygen Saturation 100% 09/08/2023 2:10 PM PACKAGER Inhaled Oxygen Concentration - - Weight - - Height - - Body Mass Index - - documented in this encounter Miscellaneous Notes * Home Health Plan for Next Visit - Judah Starks RN - 09/08/2023 2:02 PM CST Reason for today's visit: Assessment, pull PICC and discharge. Discuss plan of care with patient. Discharge planning completed. Plan for next visit: Patient discharged. AGER documented in this encounter Plan of Treatment Scheduled Procedures Name Priority Associated Diagnoses Date/Ti mi COLONOSCOPY Encounter for screening for colorectal cancer in high risk patient Family history of rectal cancer documented as of this encounter Visit Diagnoses Not on filedocumented in this encounter Home Health Visit - Care Plan Visit Details Visit Type -SN Non-OASIS Dis charge Discipline -Fci Problems Problem Description Start Date Status Goals Interventions Safety concerns Disciplines: Fci Safety needs related to infusion administration 09/04/2023 Active - 1 problem intervention scheduled/documen mohsen in this visit Learning/Teachin g Needs - IV Therapy Disciplines: Fci Teaching and learning needs for performing home IV therapy 09/04/2023 Active - 6 problem interventions scheduled/documen mohsen in this visit Medications Disciplines: Fci Management of home medications 09/04/2023 Active 1 goal linked to scheduled/docume nted intervention 6 goal interventions scheduled/documen mohsen in this visit Monitor patient's vital signs every home health visit Disciplines: SN, PT, OT, DATA COMMUNICATIONS ENGINEER, ELECTRONICS ENGINEERING TECHNOLOGIST, Skilled Disciplines Monitor patient's vital signs every home health visit. 09/04/2023 Active 1 goal linked to scheduled/docume nted intervention 1 goal intervention scheduled/documen mohsen in this visit Infection Prevention Disciplines: Skilled Disciplines Infection Prevention CMV Positive : [place] Precautions (OSHA, 2022). Casual contact doesn't transmit [...] visit during episode of care Description: Home protective officer to measure vital signs during every home [...] HH nurse and/or physician. CMV contact precautions. [place] Precautions (OSHA, 2022). Casual contact doesn't transmit [...] Scheduled documented in this encounter Care Teams Irrigation Engineer Relationship Specialty Start Date End Date Beka Nick MD [address] [place] [address] PCP - General Family Practice 05/31/23 04/25/24 Amber Montesinos RN Guard Entrance Registrar Transplant 11/17/19 Jil Duncan MD Consulting Physician Infectious Diseases 01/10/20 Anita Gillespie MD Medical Oncologist/Palletizer Operator Medical Oncology 10/07/20 Tabitha Hurley MD [address] [facility] [address] [place], [place] [id number] Consulting Physician Rheumatology 10/22/21 Massiel Gastelum MD [address] [place] [address] Consulting Physician Otolaryngology 08/27/22 documented as of this encounter
--- OUTSIDE RECORDS SUMMARY | 2024-10-28 06:07 | XMS_ITS | Encounter Summary ---
Author Organization [facility] Healthcare Address [address] [place] [address] Care Team Providers Care Flooring Installer Name Role Phone Amber Montesinos RN Unavailable [phone] Jil Duncan MD Unavailable [phone] Anita Gillespie MD Unavailable [phone] Tabitha Hruley MD Unavailable [phone] Massiel Gastelum MD Unavailable [phone] Beka Nick MD Primary Care Provider [phone] Reason for Visit * Reason Onset Date Comments opat 09/06/2023 Encounter Details Date Type Department Care Team (Late st Contact Info) Description 09/06/2023 Documentation [facility] Isolation Infection 1 [place] [address] La Baxter, CROP AND SOIL SCIENTIST [address] [place] [address] opat Social History Tobacco Use Types Packs/Day [...] on file 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 Gender Identity Not on file Sexual Orientation Straight 08/22/2021 9: 23 AM CDT documented as of this encounter Progress Notes * La Baxter NP - 09/06/2023 2:18 PM CST Labs (CBC, BMP) from 09/04/23 reviewed No changes to current abx - Foscarnet thru 09/07 Valcyte Dx: CMV ID f/u: 09/27 Date WBC PLT Cr ALT AST ALP K+ CMV 09/03 252 (2.40) 09/04 8.2 208 0.64 3.8 MAKER documented in this encounter Plan of Treatment Scheduled Procedures Name Priority Associated Diagnoses Date/Ti me COLONOSCOPY Encounter for screening for colorectal cancer in high risk patient Family history of rectal cancer documented as of this encounter Visit Diagnoses Not on filedocumented in this encounter Care Teams Flooring Installer Relationship Specialty Start Date End Date Beka Nick MD [address] [place] [address] PCP - General Family Practice 05/31/23 04/25/24 Amber Montesinos RN Agricultural Research Technician Transplant 11/17/19 Jil Duncan MD Consulting Physician Infectious Diseases 01/10/20 Anita Gillespie MD Medical Oncologist/Internal Medicine Specialist Medical Oncology 10/07/20 Tabitha Hurley MD [address] [place], [place] [address] Consulting Physician Rheumatology 10/22/21 Massiel Gastelum MD [address] [place] [address] Consulting Physician Otolaryngology 08/27/22 documented as of this encounter
--- OUTSIDE RECORDS SUMMARY | 2024-10-28 06:07 | XMS_ITS | Encounter Summary ---
Author Organization [facility] Healthcare Address [address] [place] [address] Care Team Providers Care Special Education Case Manager Name Role Phone Amber Montesinos RN Unavailable [phone] Jil Duncan MD Unavailable [phone] Anita Gillespie MD Unavailable [phone] Tabitha Hurley MD Unavailable [phone] Massiel Gastelum MD Unavailable Beka Nick MD Primary Care Provider [phone] Encounter Details Date Type Department Care Team (Late st Contact Info) Description 09/06/[address] 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 Inflammation, loss of hepatocytes with perisinusoidal fibrosis. Single cell hepatocyte necrosis. Ontrichrome, perisinusoidal fibrosis. On CK7, biliary metaplasia. JAKOB stain negative. CMV stain Compared with prior biopsy from last year, significantly more inflammation now. *LN biopsy positive for CMV Repeat CMV stain R MACHINE ATTENDANT documented in this encounter Plan of Treatment Scheduled Procedures Name Priority Associated Diagnoses Date/Ti me COLONOSCOPY Encounter for screening for colorectal cancer in high risk patient Family history of rectal cancer documented as of this encounter Visit Diagnoses Not on filedocumented in this encounter Care Teams Special Education Case Manager Relationship Specialty Start Date End Date Beka Nick MD [address] [place] [address] PCP - General Family Practice 05/31/23 04/25/24 Amber Montesinos RN Coffee Roaster Transplant 11/17/19 Jil Duncan MD Consulting Physician Infectious Diseases 01/10/20 Anita Gillsepie MD Medical Oncologist/Manuscript Editor Medical Oncology 10/07/20 Tabitha Hurley MD [address] [place] [address] Consulting Physician Rheumatology 10/22/21 Msasiel Gastelum MD [address] [place] [address] Consulting Physician Otolaryngology 08/27/22 documented as of this encounter
--- OUTSIDE RECORDS SUMMARY | 2024-10-28 06:07 | XMS_ITS | Encounter Summary ---
Author Organization [facility] Address [address] [place] [address] Phone Care Team Providers Care Air Moving Technician Name Role Phone Amber Montesinos RN Unavailable [phone] Jil Duncan MD Unavailable [phone] Anita Gillespie MD Unavailable [phone] Tabitha Hurley MD Unavailable [phone] Massiel Gastelum MD Unavailable [phone] Beka Nick MD Primary Care Provider [phone] Encounter Details Date Type Department Care Team (Late st Contact Info) Description 09/08/2023 Telephone [facility] Oncology [facility] Advanced Medicine 7th [place] [address] [place] [address] Lesvia Crenshaw RN Social History [...] on file Legal 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 Contact: Completed telephone contact Discharge Planning Review Care Coordination Note Reviewed: Yes New equipment: n/a New Treatment: IV antibiotics Patient received growth factor? No growth factor ordered. Appointments reviewed with patient. Next return office visit: Ineligible for TCV (due to folllow with Dr. Gillespie in 4 months, will follow up with Renal Transplant sooner). Issues with: Side Effects: no complaints Discharge Planning: No Finances: Financial toxicitiy: Denied Medication Review completed with Patient Received all discharge medications: Yes Changes include: no change Antiemetics available: ondansetron (Zofran) research study with an oral medication: : N/A Current Outpatient Medications Medication Sig Dispense Refill 0.9 % sodium chloride (sodium chloride 0.9%) parenteral solution Infuse 10 mL into a venous catheter as needed (LINE CARE). Indications: LINE CARE budesonide (PULMICORT) 0.5 mg/2 mL nebulizer solution Take 0.5 mg by nebulization daily Rinse mouthwith water after use. Do not swallow. (Patient not taking: Reported on 02/08/2023) furosemide (LASIX) 40 mg tablet Take 1 tablet (40 mg total) by mouth daily 30 tablet 11 [facility] heparin lock flush, porcine, Infuse 5 mL into a venous catheter as needed (LINE CARE). Indications: LINE CARE letermovir (PREVYMIS) 480 mg tablet Take 1 tablet (480 mg total) by mouth daily 30 tablet 0 magnesium oxide (MAG-OX) 400 mg (241.3 mg elemental magnesium) tablet Take 1 tablet (400 mg total) by mouth 2 (two) times a day for 7 days Take while on foscarnet 14 tablet 0 spironolactone (ALDACTONE) 100 mg tablet Take 1 tablet (100 mg total) by mouth daily 30 tablet 11 tacrolimus 0.5 mg immediate-release capsule Take 1 capsule (0.5 mg total) by mouth daily 30 capsule0 ursodioL (ACTIGALL) 300 mg capsule Take 2 capsules (600 mg total) by mouth daily with dinner 180 capsule 3 valGANciclovir (VALCYTE) 450 mg tablet Take 2 tablets (900 mg total) by mouth 2 (two) times a day 120 tablet 11 No current facility-administered medications for this visit. GRAPHICAL FIELD ASSISTANT documented in this encounter Plan of Treatment Scheduled Procedures Name Priority Associated Diagnoses Date/Ti me COLONOSCOPY Encounter for screening for colorectal cancer in high risk patient Family history of rectal cancer documented as of this encounter Visit Diagnoses Not on filedocumented in this encounter Care Teams Air Moving Technician Relationship Specialty Start Date End Date Beka Nick MD [address] [place] [address] PCP - General Family Practice 05/31/23 04/25/24 Amber Montesinos RN Friend [employer] Court Transplant 11/17/19 Jil Duncan MD Consulting Physician Infectious Diseases 01/10/20 Anita Gillespie MD Medical Oncologist/Research Assistant Medical Oncology 10/07/20 Tabitha Hurley MD [address] [place] [address] Consulting Physician Rheumatology 10/22/21 Massiel Gastelum MD [address] [place] [address] Consulting Physician Otolaryngology 08/27/22 documented as of this encounter
--- OUTSIDE RECORDS SUMMARY | 2024-10-28 06:07 | XMS_ITS | Encounter Summary ---
Author Organization [facility] Healthcare Address [address] [place] [address] Care Team Providers Care Patch Worker Name Role Phone Amber Montesinos RN Unavailable [phone] Jil Duncan MD Unavailable [phone] Anita Gillespie MD Unavailable [phone] Tabitha Hurley MD Unavailable [phone] Massiel Gastelum MD Unavailable [phone] Beka Nick MD Primary Care Provider [phone] Reason for Visit * Reason Onset Date Comments opat 09/08/2023 Encounter Details Date Type Department Care Team (Late st Contact Info) Description 09/08/2023 Documentation [facility] Isolation Infection 1 [place] [address] La Baxter, LIBRARY AIDE [address] [place] [address] opat Social History Tobacco Use Types Packs/Day [...] on file 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 Will have clinic contact pt to have new lab drawn. Date WBC PLT Cr ALT AST ALP K+ CMV 09/03 252 (2.40) 09/04 8.2 208 0.64 3.8 09/07 8.8 231 0.82 43 77 151 4.2 X CLERK documented in this encounter Plan of Treatment Scheduled Procedures Name Priority Associated Diagnoses Date/Ti me COLONOSCOPY Encounter for screening for colorectal cancer in high risk patient Family history of rectal cancer documented as of this encounter Visit Diagnoses Not on filedocumented in this encounter Care Teams Patch Worker Relationship Specialty Start Date End Date Beka Nick MD [address] [place] [address] PCP - General Family Practice 05/31/23 04/25/24 Amber Montesinos, SHAILESH Automobile Service Advisor Transplant 11/17/19 Jil Duncan MD Consulting Physician Infectious Diseases 01/10/20 Anita Gillespie MD Medical Oncologist/Collection Teller Medical Oncology 10/07/20 Tabitha Hurley MD [address] [place] [address] Consulting Physician Rheumatology 10/22/21 Massiel Gastelum MD [address] [place] [address] Consulting Physician Otolaryngology 08/27/22 documented as of this encounter
--- OUTSIDE RECORDS SUMMARY | 2024-10-28 06:07 | XMS_ITS | Encounter Summary ---
Author Organization [facility] Healthcare Address [address] [place] [address] Care Team Providers Care Barmaid Name Role Phone Amber Montesinos RN Unavailable [phone] Jil Duncan MD Unavailable [phone] Anita Gillespie MD Unavailable [phone] Tabitha Hurley MD Unavailable [phone] Massiel Gastelum MD Unavailable [phone] Beka Nick MD Primary Care Provider [phone] Encounter Details Date Type Department Care Team (Late st Contact Info) Description 09/03/2023 Orders Only [facility] [address] [place] [address] Mary Lindo, [facility] Social History Tobacco Use Types [...] on file Legal 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 Anita Gillespie MD/ Osman Lindo PharmD Following pharmacist: Lenard Jerome Maintain IV access PICC Line with 10ml normal saline and 5ml heparin 50units/5ml for patency per established protocol. Foscarnet 6000 mg q12h to be infused via elastomeric device at 250 mL/hour. Infuse 500 ml of 0.9% Normal Saline solution every 12 hours via rate flow tubing over 1 hour at wide open. LOT: 09/07/23 Labs: twice weekly BMP and CBC w/diff. Once weekly magnesium phosphorous, and tacrolimus to be drawn before dose. 2 SNV's every week for 2 weeks for patient assessment, teaching, IV catheter care, lab work. 8 PRN visits for additional teaching, line care, labs or other symptom management. documented in this encounter Plan of Treatment Scheduled Procedures Name Priority Associated Diagnoses Date/Ti ca COLONOSCOPY Encounter for screening for colorectal cancer in high risk patient Family history of rectal cancer documented as of this encounter Visit Diagnoses Not on filedocumented in this encounter Care Teams Barmaid Relationship Specialty Start Date End Date Beka Nick MD [address] [place] [address] PCP - General Family Practice 05/31/23 04/25/24 Amber Montesinos, SHAILESH Final Inspector Transplant 11/17/19 Jil Duncan MD Consulting Physician Infectious Diseases 01/10/20 Anita Gillespie MD Medical Oncologist/[place] Tier Medical Oncology 10/07/20 Tabitha Hurley MD [address] [place] [address] Consulting Physician Rheumatology 10/22/21 Massiel Gastelum MD [address] [place] [address] Consulting Physician Otolaryngology 08/27/22 documented as of this encounter
--- OUTSIDE RECORDS SUMMARY | 2024-10-28 06:07 | XMS_ITS | Encounter Summary ---
Author Organization [facility] Address [address] [place] [address] Phone Care Team Providers Care Chief Cardiopulmonary Technologist Name Role Phone Amber Montesinos RN Unavailable [phone] Jil Duncan MD Unavailable [phone] Anita Gillespie MD Unavailable [phone] Tabitha Hurley MD Unavailable [phone] Massiel Gastelum MD Unavailable [phone] Beka Nick MD Primary Care Provider [phone] Reason for Visit * Reason Onset Date Comments OPAT 09/07/2023 Encounter Details Date Type Department Care Team (Late st Contact Info) Description 09/07/2023 Telephone [facility] Infectious Diseases [address] [place] [address] Ny GriffinT Social History Tobacco Use Types Packs/Day Years [...] file 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 Gender Identity Not on file Sexual Orientation Straight 08/22/2021 9: 23 AM CDT documented as of this encounter Miscellaneous Notes * Telephone Encounter - Ny Griffin - 09/07/2023 11:07 AM CST ----- Message from La Baxter NP sent at 09/07/2023 11:04 AM PATTERN CHAIN MAKER SUPERVISOR ----- Regarding: RE: LOT OK to pull PICC ----- Message ----- From: Lili Nolasco RN Sent: 09/07/2023 10:00 AM PATTERN CHAIN MAKER SUPERVISOR To: La Baxter NP; Melony Jerome [facility]; # Subject: RE: LOT Alejandra, please see below ----- Message ----- From: Melony Jerome RPh Sent: 09/07/2023 9:55 AM PATTERN CHAIN MAKER SUPERVISOR To: [facility] Nurse Pool Subject: LOT Per ID note last day of Foscarnet is 09/07/23, nursing is wanting to know if ok to pull line after last dose. Please advise. ERN CHAIN MAKER SUPERVISOR documented in this encounter Plan of Treatment Scheduled Procedures Name Priority Associated Diagnoses Date/Ti ks COLONOSCOPY Encounter for screening for colorectal cancer in high risk patient Family history of rectal cancer documented as of this encounter Visit Diagnoses Not on filedocumented in this encounter Care Teams Chief Cardiopulmonary Technologist Relationship Specialty Start Date End Date Beka Nick MD [address] [place] [address] PCP - General Family Practice 05/31/23 04/25/24 Amber Montesinos, RN Corporate Director Transplant 11/17/19 Jil Duncan MD Consulting Physician Infectious Diseases 01/10/20 Anita Gillespie MD Medical Oncologist/Shake Packer Medical Oncology 10/07/20 Tabitha Hurley MD [address] [place] [address] Consulting Physician Rheumatology 10/22/21 Massiel Gastelum MD [address] [place] [address] Consulting Physician Otolaryngology 08/27/22 documented as of this encounter
--- OUTSIDE RECORDS SUMMARY | 2024-10-28 06:07 | XMS_ITS | Encounter Summary ---
Author Organization [facility] Healthcare Address [address] [place] [address] Care Team Providers Care Delivery Sales Worker Name Role Phone Amber Montesinos RN Unavailable [phone] Jil Duncan MD Unavailable [phone] Anita Gillespie MD Unavailable [phone] Tabitha Hurley MD Unavailable [phone] Massiel Gastelum MD Unavailable [phone] Bkea Nick MD Primary Care Provider [phone] Encounter Details Date Type Department Care Team (Late st Contact Info) Description 09/07/2023 8:00 AM POT ROOM TAPPER Home Care Visit [facility] [address] [address] [address] [place] [address] Parish Vyas, SHAILESH SN HOME VISIT Social History Tobacco Use [...] on file Legal Sex Male 6:28 AM POT ROOM TAPPER Gender Identity Not on file Sexual Orientation Straight 08/22/2021 9: 23 AM CDT documented as of this encounter Last Filed Vital Signs Vital Sign Reading Time Taken Comments Blood Pressure 110/62 09/07/2023 9:34 AM POT ROOM TAPPER Pulse 72 09/07/2023 9:34 AM POT ROOM TAPPER Temperature 36.4 ??C (97.6 ??F) 09/07/2023 9:34 AM CS T Respiratory Rate 16 09/07/2023 9:34 AM POT ROOM TAPPER Oxygen Saturation 98% 09/07/2023 9:34 AM POT ROOM TAPPER Inhaled Oxygen Concentration - - Weight - - Height - - Body Mass Index - - documented in this encounter Miscellaneous Notes * Home Health Visit Narrative - Parish Vyas RN - 09/07/2023 7:55 AM POT ROOM TAPPER Labs only for this visit with Mr. Nichols. CBC/CMP/Tacrolimus trough from PICC. Pt tolerated well. All vital signs fall within acceptable parameters and the patient is free of distress. Mr. Nichols is mildly icteric and continues to report dependent edema. However, he is free of distress and his vital signs are acceptable. He is pain-free. His PICC line functions well and is free of signs of infection. ROOM TAPPER * Home Health Plan for Next Visit - Parish Vyas RN - 09/07/2023 7:55 AM CST Reason for today's visit: labs only Discuss plan of care with the patient Discharge planning -- ongoing Plan for next visit - tbd ROOM TAPPER documented in this encounter Plan of Treatment Scheduled Procedures Name Priority Associated Diagnoses Date/Ti ky COLONOSCOPY Encounter for screening for colorectal cancer in high risk patient Family history of rectal cancer documented as of this encounter Visit Diagnoses Not on filedocumented in this encounter Administered Medications Inactive Administered Medications - up to 3 most recent administrations Medication Order MAR Action Action Date Dose Rate Site 0.9 % sodium chloride (sodium chloride 0.9%) parenteral solution 10 mL, intravenous, As needed, LINE CARE, Starting on Wed09/07/23 at 0938, Indications: LINE CAREIndications:LINE CARE Given 09/07/2023 8:30 AM POT ROOM TAPPER 10 mL INV-[facility] heparin lock flush, porcine, 5 mL, intravenous, As needed, LINE CARE, Starting on Wed09/07/23 at 0938, Indications: LINE CAREIndications:LINE CARE Given 09/07/2023 8:30 AM POT ROOM TAPPER 5 mL documented in this encounter Home Health Visit - Care Plan Visit Details Visit Type -SN Home Visit Discipline -Nursing Home Problems Problem Description Start Date Status Goals Interventions Safety concerns Disciplines: Nursing Home Safety needs related to infusion administration 09/04/2023 Active - 1 problem intervention scheduled/documen mohsen in this visit Learning/Teachin g Needs - IV Therapy Disciplines: Nursing Home Teaching and learning needs for performing home IV therapy 09/04/2023 Active - 6 problem interventions scheduled/documen mohsen in this visit Medications Disciplines: Nursing Home Management of home medications 09/04/2023 Active 1 goal linked to scheduled/docume nted intervention 6 goal interventions scheduled/documen mohsen in this visit Monitor patient's vital signs every home health visit Disciplines: SN, PT, OT, MANAGER PRINT, PUBLIC RELATIONS COUNSELOR, Skilled Disciplines Monitor patient's vital signs every home health visit. 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 Casual contact doesn't transmit CMV (CDC, 2022) 09/04/2023 Active 1 goal linked to scheduled/docume nted intervention 1 goal intervention scheduled/documen mohsen in this visit Safety concerns Disciplines: Skilled Disciplines Alteration in safety 09/04/2023 Active 1 goal linked to scheduled/docume nted intervention 1 goal intervention scheduled/documen mohsen in this visit Need to Collect Specimen Sample Disciplines: Nursing Home Need to collect specimen sample 09/04/2023 Active - 1 problem intervention scheduled/documen mohsen in this visit Goals [...] visit during episode of care Description: Home electron beam machine welder setter to measure vital signs during every home [...] MD and infusion service Problem:Safety concerns Completed Mr. Nichols and his mother verbalize good understanding of potential IV complications and prevention of same. Instruct on IV supplies Description: Instruct patient/caregiver in how to gather supplies, how to restock IV supplies in the home, prepare supplies, administer IV medication and disconnect IV medication, inspecting solution and supplies before infusing, and waste disposal. Problem:Learning/[place] kofi Needs - IV Therapy Completed Pt and family verbalize good understanding of how to order supplies, what supplies are needed, and timeframe in which to call. IV Access Care/Maintenance Description: Skilled Nurse to [...] of each line upon completion of infusion/flushes. Problem:Learning/Teac kofi Needs - IV Therapy Completed Patient and family verbalize and demonstrate good understanding of IV access care and maintenance to include good handwashing, aseptic technique as per [facility] Home Infusion Policies and Procedures, and troubleshooting/manag ement. Instruct on IV flush Description: Instruct patient/caregiver in how to perform flushing of IV line according to MD orders or protocol. Problem:Learning/Teac kofi Needs - IV Therapy Completed Pt verbalizes good understanding of IV flush procedure using aseptic technique as per [facility] Infusion policy. Instruct Infection Prevention Description: Instruct patient/caregiver on [...] infection control measures and when to notify nurse and/or physician. CMV contact precautions. [place] Precautions (OSHA, 2022). Casual contact doesn't transmit CMV (CDC, 2022). Problem:Learning/Teac kofi Needs - IV Therapy Scheduled IV Administration [...] tubing over 1 hour at wide open. Problem:Learning/Teac kofi Needs - IV Therapy Scheduled Dressing change [...] PRN. Type of line: RUE PICC DL Problem:Learning/Teac kofi Needs - IV Therapy Scheduled Instruct on high risk medications Description: Instruct patient/caregiver on high-risk/high-alert medications, including: anti-convulsant, anti-retroviral, anti-coagulant, chemotherapeutic, hypo-glycemic, immunosuppressant, insulin, and opioid. Specifically: Foscarnet, antiviral. Problem:Medications Goal:Understand and follow medication therapy Completed Teaching High-risk/high-alert medications (specifically foscarnet ) with Patient and caregiver. Instruct medications Description: Instruct patient/caregiver in medication [...] home health visit during episode of care Completed All vital signs fall within acceptable parameters. Educate Patient on Infection Prevention Description: Instruct patient on signs and symptoms of infection IE: fever, odor, change in color, increased amount of drainage, purulent drainage, warmth. Problem:Infection Prevention Goal:Verbalize signs of infection Scheduled Assess safety Description: Assess patient safety Problem:Safety concerns Goal:Demonstrate use of safety precautions Completed Pt and family report that they are safe in the home. Lab draw Description: Labs: twice weekly BMP and CBC w/diff. Once weekly magnesium phosphorous, and first drawn tacrolimus to be drawn before dose on 09/07/23. LOT: 09/07/23 Following pharmacist: Lenard Jerome Copied from [facility]: Dr. Anita Gillespie MD/ Osman Lindo PharmD / Veronica Duarte RN Problem:Need to Collect Specimen Sample Completed Sample obtained from PICC using aseptic technique for CBC and CMP, tacrolimus trough as ordered. Well tolerated by patient. Labs taken by stone driller helper to [facility] main lab. documented in this encounter Care Teams Delivery Sales Worker Relationship Specialty Start Date End Date Beka Nick MD [address] [place] [address] PCP - General Family Practice 05/31/23 04/25/24 Amber Montesinos, RN Home Health Occupational Therapist Transplant 11/17/19 Jil Duncan MD Consulting Physician Infectious Diseases 01/10/20 Anita Gillespie MD Medical Oncologist/Hydroelectric Plant Electrical Engineer Medical Oncology 10/07/20 Tabitha Hurley MD [address] [place] [address] Consulting Physician Rheumatology 10/22/21 Massiel Gastelum MD [address] [place] [address] Consulting Physician Otolaryngology 08/27/22 documented as of this encounter
--- OUTSIDE RECORDS SUMMARY | 2024-10-28 06:07 | XMS_ITS | Encounter Summary ---
Author Organization [facility] Healthcare Address [address] [place] [address] Care Team Providers Care State Pilot Name Role Phone Amber Montesinos RN Unavailable [phone] Jil Duncan MD Unavailable [phone] Anita Gillespie MD Unavailable [phone] Tabitha Hurley MD Unavailable [phone] Massiel Gastelum MD Unavailable Beka Nick MD Primary Care Provider [phone] Reason for Visit * Reason Onset Date Comments opat 09/17/2023 Encounter Details Date Type Department Care Team (Late st Contact Info) Description 09/17/2023 Documentation [facility] Isolation Infection [address] [place] [address] La Baxter, UTILITY OPERATOR [address] [place] [address] opat Social History Tobacco Use Types Packs/Day [...] on file Legal Sex Male 6:28 AM BASS FISHER Gender Identity Not on file Sexual Orientation Straight 08/22/2021 9: 23 AM CDT documented as of this encounter Progress Notes * La Baxter NP - 09/17/2023 2:36 PM CST Labs (CMV) from 09/10/23 reviewed No changes to current abx - Foscarnet thru 09/07 [employer] Dx: CMV ID f/u: 09/27 Date WBC PLT Cr ALT AST ALP K+ CMV 09/03 252 (2.40) 09/04 8.2 208 0.64 3.8 09/07 8.8 231 0.82 43 77 151 4.2 09/10 undetected FISHER documented in this encounter Plan of Treatment Scheduled Procedures Name Priority Associated Diagnoses Date/Ti me COLONOSCOPY Encounter for screening for colorectal cancer in high risk patient Family history of rectal cancer documented as of this encounter Visit Diagnoses Not on filedocumented in this encounter Care Teams State Pilot Relationship Specialty Start Date End Date Beka Nick MD [address] [place] [address] PCP - General Family Practice 05/31/23 04/25/24 Amber Montesinos RN Milling Machine Operator Transplant 11/17/19 Jil Duncan MD Consulting Physician Infectious Diseases 01/10/20 Anita Gillespie MD Medical Oncologist/Channel Opener Outsoles Medical Oncology 10/07/20 Tabitha Hurley MD [address] [place] [address] Consulting Physician Rheumatology 10/22/21 Massiel Gastelum MD [address] [place] [address] Consulting Physician Otolaryngology 08/27/22 documented as of this encounter
--- OUTSIDE RECORDS SUMMARY | 2024-10-28 06:07 | XMS_ITS | Encounter Summary ---
Author Organization [facility] Healthcare Address [address] [place] [address] Care Team Providers Care Director Hydrogen Storage Engineering Name Role Phone Amber Montesinos RN Unavailable [phone] Jil Duncan MD Unavailable [phone] Anita Gillespie MD Unavailable [phone] Tabitha Hurley MD Unavailable [phone] Massiel Gastelum MD Unavailable [phone] Beka Nick MD Primary Care Provider [phone] Encounter Details Date Type Department Care Team (Latest Contact Info) Description 09/04/2023 9:00 AM CDT Home Care Visit [facility] [address] [address] [address] [place] [address] Veronica Duarte RN SN NON OASIS START OF CARE Social [...] on file Legal Sex Male 6:28 AM FOLDER AND NOTCHER Gender Identity Not on file Sexual Orientation Straight 08/22/2021 9: 23 AM CDT documented as of this encounter Miscellaneous Notes * Home Health Visit Narrative - Veronica Duarte RN - 09/04/2023 11:12 AM CDT 28 year old male patient, Beka Nichols, presents to [facility] for IV infusions of antiviral 6g Foscarnet q12h via elastomeric device and 500mL NS fluid bolus q12h via RFT to 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 PMH includes a current superficial DVT in LUE, spleenectomy and liver transplant. Patient has previously had a PICC Line and has previously given himself home IV infusions. No concerns or complaints assessed or presented atthis time. VSS, assessment revealed icteric sclera with pink skin, gums, and buccal membranes, consistent withbaseline assessments in hospital. No acute changes to baseline assessments noted. Patient fully demonstrated/verbalized retention of education. No safety issues or concerns noted upon assessment at this time. 2nd teach scheduled for tomorrow for 2nd Teach and Labs (Tacro Trough, CBC'd, BMP, Mg, Phos). Pt doses Tacro at 8am and is aware to wait until lab collection before taking morning dose. LOT is 09/07/23, last dose is Wed09/08/23, no firms orders received yet to remove PICC or DC patientafter last dose. Electric Range Servicer, Rosalio Montana, has been included in visits, plans, care, and is familiar with this patient. Thank you for your time, ~ Veronica Duarte RN * Home Health Plan for Next Visit - Veronica Duarte RN - 09/04/2023 11:12 AM CDT Reason for today's visit SOC, Line Care, Labs, VS, Assessments Discuss plan of care with patient Discharge planned when [facility] is no longer needed Plan for next visit: 2nd Teach and Labs (Tacro Trough, CBC'd, BMP, Mg, Phos) Pt doses Tacro at 8am and is aware to wait until lab collection before taking morning dose documented in this encounter Plan of Treatment [...] intravenous, As needed, LINE CARE, Starting on 09/04/23 at 1712, Indications: LINE CAREIndications:LINE CARE Given 09/04/2023 11:50 AM CDT 40 mL [facility] heparin lock flush, porcine, 5 mL, intravenous, As needed, LINE CARE, Starting on 09/04/23 at 1712, Indications: LINE CAREIndications:LINE CARE Given 09/04/2023 11:55 AM CDT 10 mL documented in this encounter Home Health Visit - Care Plan Visit Details Visit Type -SN Non-OASIS Sta rt of Care Discipline -Retirement Problems Problem Description Start Date Status Goals Interventions Medications Disciplines: Retirement Management of IV Medications 09/04/2023 Active - 2 problem interventions scheduled/documen mohsen in this visit Safety concerns Disciplines: Retirement Safety needs related to infusion administration 09/04/2023 Active - 1 problem intervention scheduled/documen mohsen in this visit Learning/Teachin g Needs - IV Therapy Disciplines: Retirement Teaching and learning needs for performing home IV therapy 09/04/2023 Active - 7 problem interventions scheduled/documen mohsen in this visit Medications Disciplines: Retirement Management of home medications 09/04/2023 Active 1 goal linked to scheduled/docume nted intervention 6 goal interventions scheduled/documen mohsen in this visit Monitor patient's vital signs every home health visit Disciplines: SN, PT, OT, WEB UI DESIGNER, AUTOMOBILE SERVICE STATION MECHANIC, Skilled Disciplines Monitor patient's vital signs every home health visit. 09/04/2023 Active 1 goal linked to scheduled/docume nted intervention 1 goal intervention scheduled/documen mohsen in this visit Infection Prevention Disciplines: Skilled Disciplines Infection Prevention CMV Positive : [place] Precautions (OSHA, 2022). Casual contact doesn't transmit [...] visit during episode of care Description: Home shipping checker to measure vital signs during every home [...] Associated Problem/Goal Status Variance Visit Notes Instruct medications Description: Instruct patient/caregiver in medication administration, purpose, dosages, preparation, scheduling, side effects, food/drug interactions, storage, drug allergies, and potential complications. Medications instructed on: Foscarnet 6000 mg q12h to be infused via elastomeric device at 250 mL/hour. Infuse 500 ml of 0.9% Normal Saline solution every 12 hours via rate flow tubing over 1 hour at wide open. LOT: 09/07/23 Problem:Medications Completed Instructed patient and caregiver in medication administration, purpose, dosages, preparation, scheduling, side effects, food/drug interactions, storage, drug allergies, and potential complications. Patient and caregiver verbalized understanding. Medications instructed on: Foscarnet 6000 mg q12h to be infused via elastomeric device at 250 mL/hour. Infuse 500 ml of 0.9% Normal Saline solution every 12 hours via rate flow tubing over 1 hour at wide open. LOT: 09/07/23 IV Infusion Description: Instruct patient/caregiver on IV infusion: Foscarnet 6000 mg q12h to be infused via elastomeric device at 250 mL/hour. Infuse 500 ml of 0.9% Normal Saline solution every 12 hours via rate flow tubing over 1 hour at wide open. LOT: 09/07/23 Problem:Medications Completed Instruct on IV complications Description: Instruct patient/caregiver on how to manage breaks in line, signs/symptoms of complications, who to contact for complications and how to contact the nurse, MD and infusion service Problem:Safety concerns Completed Instruct on IV supplies Description: Instruct patient/caregiver in how to gather supplies, how to restock IV supplies in the home, prepare supplies, administer IV medication and disconnect IV medication, inspecting solution and supplies before infusing, and waste disposal. Problem:Learning/Teac kofi Needs - IV Therapy Completed Instruct Infection Prevention Description: Instruct patient/caregiver on [...] notify nurse and/or physician. CMV contact precautions. [place] Precautions (OSHA, 2022). Casual contact doesn't transmit CMV (CDC, 2022). Problem:Learning/Teac kofi Needs - IV Therapy Completed Instructed patient and caregiver on strategies to prevent infection: frequent/proper hand-washing [...] and when to notify nurse and/or physician. Patient and caregiver verbalized understanding. IV Administration Description: Skilled Nurse to instruct [...] open. Problem:Learning/Teac kofi Needs - IV Therapy Completed Dressing change Description: Skilled Nurse to instruct [...] DL Problem:Learning/Teac kofi Needs - IV Therapy Completed Patient tolerated dressing change well. PICC education provided. Patient verbalized understanding. Type of line: RUE PICC line - Double Lumen. Dressing change to Right Arm PICC double lumen performed by Skilled Nurse, Veronica Duarte RN. Old dressing removed. Sterile technique used. Site cleansed 30 seconds chlorhexidine scrub and allowed to dry. Secured with StatLock, sterile, transparent, biooclusive Tegaderm dressing applied. Extension changed, patent with good blood return, flushed well with saline flush, heparin lock given as ordered. New clave placed. Connection taped securely. Alcohol swapcap placed on clave. Patient tolerated well without complaints or distress. PICC education provided: Securement Device to be used with each dressing change. Skilled Nurse instructed patient on the purpose of doing measurements of line migration and arm circumference weekly and PRN. Pt verbalized understanding. IV Access Care/Maintenance Description: Skilled Nurse to [...] Problem:Learning/Teac kofi Needs - IV Therapy Completed Instruct on IV flush Description: Instruct patient/caregiver in how to perform flushing of IV line according to MD orders or protocol. Problem:Learning/Teac kofi Needs - IV Therapy Completed IV Discontinuation Description: Instruct patient/caregiver on how to remove peripheral IV after last infusion per MD order or instruct on process of removal of Central Venous Catheter if it is to be removed in the home after infusion therapy is completed by Skilled Nurse. Problem:Learning/Teac kofi Needs - IV Therapy Completed Instructed patient and caregiver on PICC Line removal after last infusion per MD order if it is to be removed in the home after infusion therapy is completed by Skilled Nurse. Patient and caregiver verbalized understanding. Instruct medications Description: Instruct patient/caregiver in medication [...] 09/07/23 Problem:Medications Goal:Understand and follow medication therapy Completed Instructed patient and caregiver in medication administration, purpose, dosages, preparation, scheduling, side effects, food/drug interactions, storage, drug allergies, and potential complications. Patient and caregiver verbalized understanding. Medications instructed on: Foscarnet 6000 mg q12h to be infused via elastomeric device at 250 mL/hour. Infuse 500 ml of 0.9% Normal Saline solution every 12 hours via rate flow tubing over 1 hour at wide open. LOT: 09/07/23 Instruct on drug interactions Description: Perform drug interaction screening and instruct patient on severe drug interactions. Notify MD of any severe interactions Problem:Medications Goal:Understand and follow medication therapy Completed Instruct on high risk medications Description: Instruct patient/caregiver on high-risk/high-alert medications, including: anti-convulsant, anti-retroviral, anti-coagulant, chemotherapeutic, hypo-glycemic, immunosuppressant, insulin, and opioid. Specifically: Foscarnet, antiviral. Problem:Medications Goal:Understand and follow medication therapy Completed Instruct patient/caregiver on high-risk/high-alert medications, including: anti-convulsant, anti-retroviral, anti-coagulant, chemotherapeutic, hypo-glycemic, immunosuppressant, insulin, and opioid. Specifically: Foscarnet, antiviral. Patient and caregiver verbalized understanding. Instruct on medication delivery system Description: Instruct patient/caregiver on medication delivery system. Keep up to date medication list with patient Problem:Medications Goal:Understand and follow medication therapy Completed Instruct on medication side effects Description: Instruct patient/caregiver to monitor for side effects and adverse reactions Problem:Medications Goal:Understand and follow medication therapy Completed Monitor effectiveness of drug therapy Description: Monitor effectiveness of patient's drug therapy Problem:Medications Goal:Understand and follow medication therapy Completed Monitor Vital Signs Description: Monitor blood pressure, pulse, oxygen saturation, respirations Problem:Monitor patient's vital signs every home health visit Goal:Measure vital signs during every home health visit during episode of care Completed Educate Patient on Infection Prevention Description: Instruct patient on signs and symptoms of infection IE: fever, odor, change in color, increased amount of drainage, purulent drainage, warmth. Problem:Infection Prevention Goal:Verbalize signs of infection Completed Aspects of Care Description: Instruct patient/caregiver on universal precautions and home infection control measures CMV contact precautions. [place] Precautions (OSHA, 2022). Casual contact doesn't transmit CMV (CDC, 2022). Problem:Infection Prevention Goal:Verbalize signs of infection Completed Assess safety Description: Assess patient safety Problem:Safety concerns Goal:Demonstrate use of safety precautions Completed documented in this encounter Care Teams Director Hydrogen Storage Engineering Relationship Specialty Start Date End Date Beka Nick MD [address] [place] [address] PCP - General Family Practice 05/31/23 04/25/24 Amber Montesinos RN Crop Setting Out Machine Operator Transplant 11/17/19 Jil Duncan MD Consulting Physician Infectious Diseases 01/10/20 Anita Gillespie MD Medical Oncologist/Repair Coil Winder Medical Oncology 10/07/20 Tabitha Hurley MD [address] [facility] [address] [place] [address] Consulting Physician Rheumatology 10/22/21 Massiel Gastelum MD [address] [place] [address] Consulting Physician Otolaryngology 08/27/22 documented as of this encounter
--- OUTSIDE RECORDS SUMMARY | 2024-10-28 06:07 | XMS_ITS | Encounter Summary ---
Author Organization [facility] Healthcare Address [address] [place] [address] Care Team Providers Care Implementation Specialist Name Role Phone Amber Montesinos RN Unavailable [phone] Jil Duncan MD Unavailable [phone] Anita Gillespie MD Unavailable [phone] Tabitha Hurley MD Unavailable [phone] Massiel Gastelum MD Unavailable [phone] Beka Nick MD Primary Care Provider [phone] Encounter Details Date Type Department Care Team (Latest Contact Info) Description 09/04/2023 2:10 PM CDT - 09/04/2023 11:59 PM CDT Hospital Encounter [id number] [place] [address] Discharge Disposition: Discharge to home or self [...] on file 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 4000 mL 09/03/2023 3 0.9 % sodium chloride (sodium chloride 0.9%) [...] mg total) by mouth daily 30 tablet 09/04/2023 3 [facility] heparin lock flush, porcine,Indicati ons:LINE CARE [...] Name Type Priority Associated Diagnoses Date /Time Basic metabolic panel (Outreach) Lab Routine 09/04/2023 2:41 PM CDT Scheduled Orders Name Type Priority Associated Diagnoses Orde r Schedule Basic metabolic panel (Outreach) Lab Routine Once for 1 Occur rences starting 09/04/2023 until 09/04/2023 Scheduled Procedures Name Priority Associated Diagnoses Date/Ti me COLONOSCOPY Encounter for screening for colorectal cancer in high risk patient Family history of rectal cancer documented as of this encounter Procedures Procedure Name Priority Date/Time Associated Diagnosis Comments GLUCOSE, RANDOM (OUTREACH) Routine 09/04/2023 11:45 AM CDT EGFR Routine 09/04/2023 11:45 AM CDT DIFFERENTIAL AUTO Routine 09/04/2023 11: 45 AM CDT BASIC METABOLIC PANEL WITHOUT GLUCOSE, PLASMA (OUTREACH) Routine 09/04/2023 11:45 AM CDT CBC WITH AUTO DIFFERENTIAL Routine 09/04/2023 11:45 AM CDT documented in this encounter Results * eGFR (09/04/2023 11:45 AM CDT) eGFR 131 mL/min/1. 73 m2 [facility] Comment: Interpretive Data Reference Interval Normal [...] interpretive data was last reviewed 2021. Blood 09/04/2023 11:4 5 AM CDT 09/04/2023 2:15 PM CDT us Anita Gillespie MD LAB BLOOD ORDERABLES Final Result [facility] [address] Department [place] [address] * (ABNORMAL) Differential, auto (09/04/2023 11:45 AM CDT) Neutrophil abs 3.8 1.7 - 6.5 K/cumm [facility] Imm gran abs 0.0 0.0 - 0.1 K/cumm [facility] Lymphocyte abs 3.4(H) 0.8 - 3.3 K/cumm [facility] Monocyte abs 0.6 0.2 - 0.8 K/cumm [facility] Eosinophil abs 0.4 0.0 - 0.5 K/cumm [facility] Basophil abs 0.1 0.0 - 0.1 K/cumm [facility] Neutrophil pct 45.8 % [facility] Comment: Interpretive Data Percent cell count reference ranges are not reported, since discordance with absolute values may lead to misinterpretation of CBC data. Current Interpretive Data was last revised on 2018. Imm gran pct 0.4 % [facility] Comment: Interpretive Data Percent cell count reference ranges are not reported, since discordance with absolute values may lead to misinterpretation of CBC data. Current Interpretive Data was last revised on 2018. Lymphocyte pct 41.9 % [facility] Comment: Interpretive Data Percent cell count reference ranges are not reported, since discordance with absolute values may lead to misinterpretation of CBC data. Current Interpretive Data was last revised on 2018. Monocyte pct 7.0 % [facility] Comment: Interpretive Data Percent cell count reference ranges are not reported, since discordance with absolute values may lead to misinterpretation of CBC data. Current Interpretive Data was last revised on 2018. Eosinophil pct 4.3 % [facility] Comment: Interpretive Data Percent cell count reference ranges are not reported, since discordance with absolute values may lead to misinterpretation of CBC data. Current Interpretive Data was last revised on 2018. Basophil pct 0.6 % [facility] Comment: Interpretive Data Percent cell count reference ranges are not reported, since discordance with absolute values may lead to misinterpretation of CBC data. Current Interpretive Data was last revised on 2018. Blood 09/04/2023 11:4 5 AM CDT 09/04/2023 2:11 PM CDT us Anita Gillespie MD LAB BLOOD ORDERABLES Final Result [facility] [address] Department [place] [address] * (ABNORMAL) CBC with auto differential (09/04/2023 11:45 AM CDT) [facility] WBC 8.2 3.8 - 9.9 K/cumm [facility] Hgb 12.5(L) 13.0 - 17.5 g/dL [facility] Comment: Interpretive Data A reference range for this assay has not been established for patients with an unknown legal sex. Please refer to the laboratory test catalog for established sex-specific reference intervals. Current interpretive data was last revised on 2023. Hct 35.3(L) 38.9 - 50.3 % [facility] Comment: Interpretive Data A reference range for this assay has not been established for patients with an unknown legal sex. Please refer to the laboratory test catalog for established sex-specific reference intervals. Current interpretive data was last revised on 2023. Plt 208 150 - 400 K/cumm [facility] MPV 12.4(H) 9.1 - 12.3 fL [facility] RBC 3.29(L) 4.30 - 5.80 M/cumm [facility] Comment: Interpretive Data A reference range for this assay has not been established for patients with an unknown legal sex. Please refer to the laboratory test catalog for established sex-specific reference intervals. Current interpretive data was last revised on 2023. MCV 107.3(H) 81.3 - 96.4 fL [facility] MCH 38.0(H) 27.1 - 33.3 pg [facility] MCHC 35.4 32.3 - 35.7 g/dL [facility] RDW CV 21.3(H) 11.1 - 14.9 % [facility] RDW SD 85.6(H) 35.7 - 48.1 fL [facility] NRBC abs 0.00 0.00 - 0.01 K/cumm [facility] Blood 09/04/2023 11:4 5 AM CDT 09/04/2023 2:11 PM CDT us Anita Gillespie MD LAB BLOOD ORDERABLES Final Result Performing Organization Address City/[facility]/ZIP Co de Phone Number [facility] [address] Department [place] [address] * Glucose, random (Outreach) (09/04/2023 11:45 AM CDT) Glucose 109 70 - 199 mg/dL [facility] Comment: Interpretive Data Fasting glucose [...] interpretive data was last revised 2022. Blood 09/04/2023 11:4 5 AM CDT 09/04/2023 2:11 PM CDT Anita Gillespie MD LAB BLOOD ORDERABLES Final Result Performing Organization Address [facility] Co de Phone Number [facility] [address] Department [place] [address] * (ABNORMAL) Basic metabolic panel without glucose (09/04/2023 11:45 AM CDT) Pathologist [facility] Sodium 143 135 - 145 mmol/L [facility] Potassium, pl 3.8 3.3 - 4.9 mmol/L [facility] Chloride 108 97 - 110 mmol/L [facility] CO2 25 22 - 32 mmol/L [facility] Anion gap 10 2 - 15 mmol/L [facility] BUN 10 6 - 25 mg/dL [facility] Creatinine 0.64(L) 0.80 - 1.30 mg/dL [facility] Calcium 9.0 8.5 - 10.3 mg/dL [facility] Blood 09/04/2023 11:4 5 AM CDT 09/04/2023 2:11 PM CDT Anita Gillespie MD LAB BLOOD ORDERABLES Final Result [facility] [address] Department [place] [address] documented in this encounter Visit Diagnoses Not on filedocumented in this encounter Care Teams Implementation Specialist Relationship Specialty Start Date End Date Beka Nick MD [address] [place] [address] PCP - General Family Practice 05/31/23 04/25/24 Amber Montesinos, RN Surg Nurse Transplant 11/17/19 Jil Duncan MD Consulting Physician Infectious Diseases 01/10/20 Anita Gillespie MD Medical Oncologist/Bond Clerk Medical Oncology 10/07/20 Tabitha Hurley MD [address] [place] [address] Consulting Physician Rheumatology 10/22/21 Massiel Gastelum MD [address] [place] [address] Consulting Physician Otolaryngology 08/27/22 documented as of this encounter
--- OUTSIDE RECORDS SUMMARY | 2024-10-28 06:07 | XMS_ITS | Encounter Summary ---
Author Organization [facility] Healthcare Address [address] [place] [address] Care Team Providers Care Rotary Rig Engine Operator Name Role Phone Amber Montesinos RN Unavailable [phone] Jil Duncan MD Unavailable [phone] Anita Gillespie MD Unavailable [phone] Tabitha Hurley MD Unavailable [phone] Massiel Gastelum MD Unavailable [phone] Beka Nick MD Primary Care Provider [phone] Encounter Details Date Type Department Care Team (Late st Contact Info) Description 09/04/2023 Home Care Visit [facility] [address] [address] [place] [address] Veronica Duarte RN SBAR-START OF CARE/RESUMPTION Social History Tobacco Use Types Packs/Day Years [...] on file 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 Gender Identity Not on file Sexual Orientation Straight 08/22/2021 9: 23 AM CDT documented as of this encounter Plan of Treatment Scheduled Procedures Name Priority Associated Diagnoses Date/Ti me COLONOSCOPY Encounter for screening for colorectal cancer in high risk patient Family history of rectal cancer documented as of this encounter Visit Diagnoses Not on filedocumented in this encounter Care Teams Rotary Rig Engine Operator Relationship Specialty Start Date End Date Beka Nick MD [address] [place] [address] PCP - General Family Practice 05/31/23 04/25/24 Amber Montesinos RN Grill Prep Cook Transplant 11/17/19 Jil Duncan MD Consulting Physician Infectious Diseases 01/10/20 Anita Gillespie MD Medical Oncologist/Re Etcher Medical Oncology 10/07/20 Tabitha Hurley MD [address] [place] [address] Consulting Physician Rheumatology 10/22/21 Massiel Gastelum MD [address] [place] [address] Consulting Physician Otolaryngology 08/27/22 documented as of this encounter
--- OUTSIDE RECORDS SUMMARY | 2024-10-28 06:07 | XMS_ITS | Encounter Summary ---
Author Organization [facility] Address [address] [place] [address] Phone Care Team Providers Care Intramural Director Name Role Phone Amber Montesinos RN Unavailable [phone] Jil Duncan MD Unavailable [phone] Anita Gillespie MD Unavailable [phone] Tabitha Hurley MD Unavailable [phone] Massiel Gastelum MD Unavailable [phone] Beka Nick MD Primary Care Provider [phone] Encounter Details Date Type Department Care Team (Late st Contact Info) Description 09/07/2023 Telephone [facility] Infectious Diseases [address] [place] [address] Lili Nolasco RN Social History Tobacco Use Types Packs/Day [...] on file 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 Gender Identity Not on file Sexual Orientation Straight 08/22/2021 9: 23 AM CDT documented as of this encounter Miscellaneous Notes * Telephone Encounter - Lili Nolasco RN - 09/07/2023 11:21 AM PETROGRAPHY TEACHER ----- Message from La Baxter NP sent at 09/07/2023 11:04 AM PETROGRAPHY TEACHER ----- Regarding: RE: LOT OK to pull PICC ----- Message ----- From: Lili Nolasco RN Sent: 09/07/2023 10:00 AM PETROGRAPHY TEACHER To: La Baxter NP; Melony Jerome [facility]; # Subject: RE: LOT Alejandra, please see below ----- Message ----- From: Melony Jerome pilar Sent: 09/07/2023 9:55 AM PETROGRAPHY TEACHER To: [facility] Im Id Nurse Pool Subject: LOT Per ID note last day of Foscarnet is 09/07/23, nursing is wanting to know if ok to pull line after last dose. Please advise. OGRAPHY TEACHER documented in this encounter Plan of Treatment Scheduled Procedures Name Priority Associated Diagnoses Date/Ti me COLONOSCOPY Encounter for screening for colorectal cancer in high risk patient Family history of rectal cancer documented as of this encounter Visit Diagnoses Not on filedocumented in this encounter Care Teams Intramural Director Relationship Specialty Start Date End Date Beka Nick MD [address] [place] [address] PCP - General Family Practice 05/31/23 04/25/24 Amber Montesinos, SHAILESH Flagger Transplant 11/17/19 Jil Duncan MD Consulting Physician Infectious Diseases 01/10/20 Ainta Gillespie MD Medical Oncologist/Fruit Cutter Medical Oncology 10/07/20 Tabitha Hurley MD [address] [facility] [address] [place], [place] [id number] Consulting Physician Rheumatology 10/22/21 Massiel Gastelum MD [address] [place], [place] [id number] Consulting Physician Otolaryngology 08/27/22 documented as of this encounter
--- OUTSIDE RECORDS SUMMARY | 2024-10-28 06:07 | XMS_ITS | Encounter Summary ---
Author Organization [facility] Healthcare Address [address] [place] [address] Care Team Providers Care Rn Internship Name Role Phone Amber Montesinos RN Unavailable [phone] Jil Duncan MD Unavailable [phone] Anita Gillespie MD Unavailable [phone] Tabitha Hurley MD Unavailable [phone] Massiel Gastelum MD Unavailable [phone] Beka Nick MD Primary Care Provider [phone] Encounter Details Date Type Department Care Team (Late st Contact Info) Description 09/10/2023 Documentation [facility] Transplant Liver [address] [facility] [phone] [place] [address] Josee Swain RN Social History Tobacco Use Types Packs/Day [...] on file 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 Called pt's mom regarding need for weekly labs. Mom states pt just started going back to work so Wednesday mornings will work best for lab draws. He will go to [facility]. New lab orders faxed over to the lab and a copy was emailed to pt's mother. She also states that he completed Foscarnet on Wed and [facility]HC removed PICC. 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 INCLUSION TEACHER documented in this encounter Plan of Treatment Scheduled Procedures Name Priority Associated Diagnoses Date/Ti me COLONOSCOPY Encounter for screening for colorectal cancer in high risk patient Family history of rectal cancer documented as of this encounter Visit Diagnoses Not on filedocumented in this encounter Care Teams Rn Internship Relationship Specialty Start Date End Date Beka Nick MD [address] [place] [address] PCP - General Family Practice 05/31/23 04/25/24 Amber Montesinos, SHAILESH Administrative Coordinator Transplant 11/17/19 Jil Duncan MD Consulting Physician Infectious Diseases 01/10/20 Anita Gillespie MD Medical Oncologist/Candle Molder Machine Medical Oncology 10/07/20 Tabitha Hurley MD [address] [place], [place] [id number] Consulting Physician Rheumatology 10/22/21 Massiel Gastelum MD [address] [place] [address] Consulting Physician Otolaryngology 08/27/22 documented as of this encounter
--- OUTSIDE RECORDS SUMMARY | 2024-10-28 06:07 | XMS_ITS | Encounter Summary ---
Author Organization [facility] Address [address] [place] [address] Phone Care Team Providers Care Inside Outside Sales Representative Name Role Phone Amber Montesinos RN Unavailable [phone] Jil Duncan MD Unavailable [phone] Anita Gillespie MD Unavailable [phone] Tabitha Hurley MD Unavailable [phone] Massiel Gastelum MD Unavailable [phone] Beka Nick MD Primary Care Provider [phone] Encounter Details Date Type Department Care Team (Late st Contact Info) Description 09/09/2023 Orders Only 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 Gender Identity Not on file Sexual [...] disease documented in this encounter Care Teams Inside Outside Sales Representative Relationship Specialty Start Date End Date Beka Nick MD [address] [place] [address] PCP - General Family Practice 05/31/23 04/25/24 Amber Montesinos RN Geology Professor Transplant 11/17/19 Jil Duncan MD Consulting Physician Infectious Diseases 01/10/20 Anita Gillespie MD Medical Oncologist/Assemblyman Or Woman Medical Oncology 10/07/20 Tabitha Hurley MD [address] [place] [address] Consulting Physician Rheumatology 10/22/21 Massiel Gastelum MD [address] [place] [address] Consulting Physician Otolaryngology 08/27/22 documented as of this encounter
--- OUTSIDE RECORDS SUMMARY | 2024-10-28 06:07 | XMS_ITS | Encounter Summary ---
Author Organization [facility] Healthcare Address [address] [place] [address] Care Team Providers Care Generating Station Mechanic Name Role Phone Amber Montesinos RN Unavailable [phone] Jil Duncan MD Unavailable [phone] Anita Gillespie MD Unavailable [phone] Tabitha Hurley MD Unavailable [phone] Massiel Gastelum MD Unavailable [phone] Beka Nick MD Primary Care Provider [phone] Encounter Details Date Type Department Care Team (Late st Contact Info) Description 09/07/2023 Orders Only [facility] Home Care Services [address] [place] [address] Melony Jerome, [facility] Social History Tobacco Use Types Packs/Day [...] file 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 O DIVISION CAPTAIN documented in this encounter Plan of Treatment Scheduled Procedures Name Priority Associated Diagnoses Date/Ti me COLONOSCOPY Encounter for screening for colorectal cancer in high risk patient Family history of rectal cancer documented as of this encounter Visit Diagnoses Not on filedocumented in this encounter Care Teams Generating Station Mechanic Relationship Specialty Start Date End Date Beka Nick MD [address] [place] [address] PCP - General Family Practice 05/31/23 04/25/24 Amber Montesinos, RN District Ranger Transplant 11/17/19 Jil Duncan MD Consulting Physician Infectious Diseases 01/10/20 Anita Gillespie MD Medical Oncologist/Technical Training Instructor Medical Oncology 10/07/20 Tabitha Hurley MD [address] [place] [address] Consulting Physician Rheumatology 10/22/21 Massiel Gastelum MD [address] [place] [address] Consulting Physician Otolaryngology 08/27/22 documented as of this encounter
--- OUTSIDE RECORDS SUMMARY | 2024-10-28 06:07 | XMS_ITS | Encounter Summary ---
Author Organization [facility] Healthcare Address [address] [place] [address] Care Team Providers Care Outbound Sales Consultant Name Role Phone Amber Montesinos RN Unavailable [phone] Jil Duncan MD Unavailable [phone] Anita Gillespie MD Unavailable [phone] Tabitha Hurley MD Unavailable [phone] Massiel Gastelum MD Unavailable Beka Nick MD Primary Care Provider [phone] Encounter Details Date Type Department Care Team (Late st Contact Info) Description 09/13/2023 Documentation [facility] Transplant Liver [address] [facility] [phone] [place] [address] Josee Swain RN Social History [...] on file Legal Sex Male 6:28 AM HEAD OF QUALITY Gender Identity Not on file Sexual Orientation Straight 08/22/2021 9: 23 AM CDT documented as of this encounter Progress Notes * Josee Swain RN - 09/13/2023 12:37 PM CST Called [facility] - no labs done this weekend and CMV is still pending. Sent my Best Bid message to have labs done tomorrow morning if not done today so we can evaluate need for Tacrolimus dosechange. Per pharmD - don't typically make empiric dose adjustments with letermovir (usually just try to getlevels twice weekly for the first couple weeks of therapy and then when therapy discontinued). Although his level is a little on the higher side not sure where he is running so knowing that most likely the level will go up and if he's above goal reasonable to go to 0.5 mg every other day, just haveto make sure we schedule labs for the days he is supposed to take the dose for a true trough. OF QUALITY documented in this encounter Plan of Treatment Scheduled Procedures Name Priority Associated Diagnoses Date/Ti me COLONOSCOPY Encounter for screening for colorectal cancer in high risk patient Family history of rectal cancer documented as of this encounter Visit Diagnoses Not on filedocumented in this encounter Care Teams Outbound Sales Consultant Relationship Specialty Start Date End Date Beka Nick MD [address] [place] [address] PCP - General Family Practice 05/31/23 04/25/24 Amber Montesinos, SHAILESH Expert Medical Writer Transplant 11/17/19 Jil Duncan MD Consulting Physician Infectious Diseases 01/10/20 Anita Gillespie MD Medical Oncologist/Bilingual Spanish Inbound Sales Medical Oncology 10/07/20 Tabitha Hurley MD [address] [place] [address] Consulting Physician Rheumatology 10/22/21 Massiel Gastelum MD [address] [place] [address] Consulting Physician Otolaryngology 08/27/22 documented as of this encounter
--- OUTSIDE RECORDS SUMMARY | 2024-10-28 06:07 | XMS_ITS | Encounter Summary ---
Author Organization [facility] Address [address] [place] [address] Phone Care Team Providers Care Hotel Director Name Role Phone Amber Montesinos RN Unavailable [phone] Jil Duncan MD Unavailable [phone] Anita Gillespie MD Unavailable [phone] Tabitha Hurley MD Unavailable [phone] Massiel Gastelum MD Unavailable [phone] Beka Nick MD Primary Care Provider [phone] Reason for Visit * Reason Onset Date Comments labs 09/09/2023 Encounter Details Date Type Department Care Team (Late st Contact Info) Description 09/09/2023 Telephone [facility] Infectious Diseases [address] [place] [phone] Ny Griffin Arianna labs Social History Tobacco Use Types Packs/Day Years [...] on file Legal Sex Male 6:28 AM BOILER TESTER Gender Identity Not on file Sexual Orientation Straight 08/22/2021 9: 23 AM CDT documented as of this encounter Miscellaneous Notes * Telephone Encounter - Ny Griffin - 09/09/2023 9:44 AM CST ----- Message from Ny Griffin sent at 09/09/2023 9:44 AM BOILER TESTER ----- Regarding: RE: CMV I have reached out to the patient to see where he would like the orders sent to. ----- Message ----- From: La Baxter NP Sent: 09/09/2023 9:36 AM BOILER TESTER To: Ny Griffin; Melony Jerome [facility]; # Subject: RE: CMV Please see if he can go to [facility] local facility to have CMV PCR drawn as soon as he is able. ----- Message ----- From: Melony Jerome pilar Sent: 09/09/2023 9:31 AM BOILER TESTER To: La Baxter NP; Ny Griffin; # Subject: RE: CMV So his line is out and he is at work today. Please advise. ----- Message ----- From: Ny Griffin Sent: 09/09/2023 8:04 AM BOILER TESTER To: La Baxter NP; Melony Jerome [facility]; # Subject: RE: CMV Looks like it was drawn, but it was in the wrong tube. ----- Message ----- From: Melony Jerome pilar Sent: 09/08/2023 1:30 PM BOILER TESTER To: La Baxter NP; Ny Griffin; # Subject: RE: CMV Will try to contact the nurse. ----- Message ----- From: Ny Griffin Sent: 09/08/2023 12:54 PM BOILER TESTER To: La Baxter NP; [facility]; # Subject: RE: CMV Has PICC been pulled yet? If not can HH draw? ----- Message ----- From: La Baxter NP Sent: 09/08/2023 12:38 PM BOILER TESTER To: Fernando Im Id Nurse Pool Subject: CMV Pt needs CMV PCR drawn as soon as possible. Unclear why it wasn't drawn yesterday. Please order CMVPCR (OK for it to be done at [facility] facility near his home) and notify pt is needs drawn. Thank you. La ER TESTER documented in this encounter Plan of Treatment Scheduled Procedures Name Priority Associated Diagnoses Date/Ti me COLONOSCOPY Encounter for screening for colorectal cancer in high risk patient Family history of rectal cancer documented as of this encounter Visit Diagnoses Not on filedocumented in this encounter Care Teams Hotel Director Relationship Specialty Start Date End Date Beka Nick MD [address] [place] [address] PCP - General Family Practice 05/31/23 04/25/24 Amber Montesinos, SHAILESH Weaving Professor Transplant 11/17/19 Jil Duncan MD Consulting Physician Infectious Diseases 01/10/20 Anita Gillespie MD Medical Oncologist/Home Health Travel Pt Medical Oncology 10/07/20 Tabitha Hurley MD [address] [place] [address] Consulting Physician Rheumatology 10/22/21 Massiel Gastelum MD [address] [place] [address] Consulting Physician Otolaryngology 08/27/22 documented as of this encounter
--- OUTSIDE RECORDS SUMMARY | 2024-10-28 06:07 | XMS_ITS | Encounter Summary ---
Author Organization [facility] Healthcare Address [address] [place] [address] Care Team Providers Care Winch Stripper Name Role Phone Amber Montesinos RN Unavailable [phone] Jil Duncan MD Unavailable [phone] Anita Gillespie MD Unavailable [phone] Tabitha Hurley MD Unavailable [phone] Massiel Gastelum MD Unavailable [phone] Beka Nick MD Primary Care Provider [phone] Encounter Details Date Type Department Care Team (Latest Contact Info) Description 09/07/2023 8:00 AM ADJUSTER AND INSPECTOR - 09/07/2023 11:59 PM [facility] Hospital Encounter [address] [address] Discharge Disposition: Discharge to home [...] on file Legal Sex Male 6:28 AM ADJUSTER AND INSPECTOR Gender Identity Not on file Sexual [...] mouth daily 30 tablet 11 09/04/2023 3 [facility] heparin lock flush, porcine,Indicati ons:LINE CARE [...] Scheduled Procedures Name Priority Associated Diagnoses Date/Ti sd COLONOSCOPY Encounter for screening for colorectal cancer in high risk patient Family history of rectal cancer documented as of this encounter Procedures Procedure Name Priority Date/Time Associated Diagnosis Comments GLUCOSE, RANDOM (OUTREACH) Routine 09/07/2023 8:00 AM ADJUSTER AND INSPECTOR EGFR Routine 09/07/2023 8:00 AM ADJUSTER AND INSPECTOR DIFFERENTIAL AUTO Routine 09/07/2023 8:0 0 AM ADJUSTER AND INSPECTOR TACROLIMUS LEVEL, TROUGH Routine 09/07/2023 8:00 AM ADJUSTER AND INSPECTOR COMPREHENSIVE METABOLIC PANEL WITHOUT GLUCOSE (OUTREACH) Routine 09/07/2023 8:00 AM ADJUSTER AND INSPECTOR CBC WITH AUTO DIFFERENTIAL Routine 09/07/2023 8:00 AM ADJUSTER AND INSPECTOR PHOSPHORUS Routine 09/07/2023 8:00 AM ADJUSTER AND INSPECTOR MAGNESIUM Routine 09/07/2023 8:00 AM ADJUSTER AND INSPECTOR documented in this encounter Results * eGFR (09/07/2023 8:00 AM ADJUSTER AND INSPECTOR) eGFR >90 90 - 130 mL/min/1. 73 m2 [facility] Comment: Interpretive Data Reference Interval Normal [...] interpretive data was last reviewed 2021. Blood 09/07/2023 8:00 AM ADJUSTER AND INSPECTOR 09/07/2023 3:16 PM ADJUSTER AND INSPECTOR Anita Gillespie MD LAB BLOOD ORDERABLES Final Result [facility] Department [place] [address] * (ABNORMAL) Differential, auto (09/07/2023 8:00 AM ADJUSTER AND INSPECTOR) Pathologist [facility] Neutrophil abs 3.4 1.7 - 6.5 K/cumm [facility] Imm gran abs 0.0 0.0 - 0.1 K/cumm [facility] Lymphocyte abs 4.0(H) 0.8 - 3.3 K/cumm [facility] Monocyte abs 0.9(H) 0.2 - 0.8 K/cumm [facility] Eosinophil abs 0.4 0.0 - 0.5 K/cumm [facility] Basophil abs 0.1 0.0 - 0.1 K/cumm [facility] Neutrophil pct 38.9 % [facility] Comment: Interpretive Data Percent cell count reference ranges are not reported, since discordance with absolute values may lead to misinterpretation of CBC data. Current Interpretive Data was last revised on 2018. Imm gran pct 0.3 % [facility] Comment: Interpretive Data Percent cell count reference ranges are not reported, since discordance with absolute values may lead to misinterpretation of CBC data. Current Interpretive Data was last revised on 2018. Lymphocyte pct 45.2 % [facility] Comment: Interpretive Data Percent cell count reference ranges are not reported, since discordance with absolute values may lead to misinterpretation of CBC data. Current Interpretive Data was last revised on 2018. Monocyte pct 10.4 % [facility] Comment: Interpretive Data Percent cell count reference ranges are not reported, since discordance with absolute values may lead to misinterpretation of CBC data. Current Interpretive Data was last revised on 2018. Eosinophil pct 4.6 % [facility] Comment: Interpretive Data Percent cell count reference ranges are not reported, since discordance with absolute values may lead to misinterpretation of CBC data. Current Interpretive Data was last revised on 2018. Basophil pct 0.6 % [facility] Comment: Interpretive Data Percent cell count reference ranges are not reported, since discordance with absolute values may lead to misinterpretation of CBC data. Current Interpretive Data was last revised on 2018. Blood 09/07/2023 8:00 AM ADJUSTER AND INSPECTOR 09/07/2023 2:47 PM ADJUSTER AND INSPECTOR us Anita Gillespie MD LAB BLOOD ORDERABLES Final Result [facility] Department [place] [address] * (ABNORMAL) Magnesium (09/07/2023 8:00 AM ADJUSTER AND INSPECTOR) Magnesium 1.2(L) 1.4 - 2.5 mg/dL [facility] Blood 09/07/2023 8:00 AM ADJUSTER AND INSPECTOR 09/07/2023 2:47 PM ADJUSTER AND INSPECTOR Anita Gillespie MD LAB BLOOD ORDERABLES Final Result [facility] Department [place] [address] * Tacrolimus level trough (09/07/2023 8:00 AM ADJUSTER AND INSPECTOR) [facility] Tacrolimus trough 8.9 ng/mL [facility] Comment: Interpretive Data Testing performed by liquid chromatography-tandem mass spectrometry. ??Therapeutic concentrations vary depending on type of transplanted organ and time elapsed since transplant. ??Typical trough concentrations range from 5-15 ng/mL. ??This test was developed and its performance characteristics determined by the [facility] consistent with CLIA requirements. ??This test has not been cleared or approved by the [place] Food and Drug administration. ??Current interpretive data last reviewed 2020. Blood 09/07/2023 8:00 AM ADJUSTER AND INSPECTOR 09/07/2023 2:48 PM ADJUSTER AND INSPECTOR Anita Gillespie MD LAB BLOOD ORDERABLES Final Result [facility] Department [place] [address] * Phosphorus (09/07/2023 8:00 AM ADJUSTER AND INSPECTOR) [facility] Phosphorus, pl 4.3 2.3 - 4.5 mg/dL [facility] Blood 09/07/2023 8:00 AM ADJUSTER AND INSPECTOR 09/07/2023 2:47 PM ADJUSTER AND INSPECTOR Anita Gillespie MD LAB BLOOD ORDERABLES Final Result [facility] [place] [address] * (ABNORMAL) CBC with auto differential (09/07/2023 8:00 AM ADJUSTER AND INSPECTOR) [facility] WBC 8.8 3.8 - 9.9 K/cumm [facility] Hgb 11.4(L) 13.0 - 17.5 g/dL [facility] Comment: Interpretive Data A reference range for this assay has not been established for patients with an unknown legal sex. Please refer to the laboratory test catalog for established sex-specific reference intervals. Current interpretive data was last revised on 2023. Hct 32.3(L) 38.9 - 50.3 % [facility] Comment: Interpretive Data A reference range for this assay has not been established for patients with an unknown legal sex. Please refer to the laboratory test catalog for established sex-specific reference intervals. Current interpretive data was last revised on 2023. Plt 231 150 - 400 K/cumm [facility] MPV 12.3 9.1 - 12.3 fL [facility] RBC 2.95(L) 4.30 - 5.80 M/cumm [facility] Comment: Interpretive Data A reference range for this assay has not been established for patients with an unknown legal sex. Please refer to the laboratory test catalog for established sex-specific reference intervals. Current interpretive data was last revised on 2023. MCV 109.5(H) 81.3 - 96.4 fL [facility] MCH 38.6(H) 27.1 - 33.3 pg [facility] MCHC 35.3 32.3 - 35.7 g/dL [facility] RDW CV 21.6(H) 11.1 - 14.9 % [facility] RDW SD 86.3(H) 35.7 - 48.1 fL [facility] NRBC abs 0.00 0.00 - 0.01 K/cumm [facility] Blood 09/07/2023 8:00 AM ADJUSTER AND INSPECTOR 09/07/2023 2:47 PM ADJUSTER AND INSPECTOR us Anita Gillespie MD LAB BLOOD ORDERABLES Final Result [facility] Department of Laboratories [place], [place] [id number] * Glucose, random (Outreach) (09/07/2023 8:00 AM ADJUSTER AND INSPECTOR) [facility] Glucose 83 70 - 199 mg/dL [facility] Comment: Interpretive Data Fasting glucose >/= 126 [...] interpretive data was last revised 2022. Blood 09/07/2023 8:00 AM ADJUSTER AND INSPECTOR 09/07/2023 2:47 PM ADJUSTER AND INSPECTOR us Anita Gillespie MD LAB BLOOD ORDERABLES Final Result [facility] Department [place] [address] * (ABNORMAL) Comprehensive metabolic panel, without glucose (Outreach) (09/07/2023 8:00 AM ADJUSTER AND INSPECTOR) Sodium 143 135 - 145 mmol/L [facility] Potassium, pl 4.2 3.3 - 4.9 mmol/L [facility] Chloride 107 97 - 110 mmol/L [facility] CO2 26 22 - 32 mmol/L [facility] Anion gap 10 2 - 15 mmol/L [facility] BUN 8 6 - 25 mg/dL [facility] Creatinine 0.82 0.80 - 1.30 mg/dL [facility] Calcium 9.2 8.5 - 10.3 mg/dL [facility] Protein, pl 4.7(L) 6.5 - 8.5 g/dL [facility] Albumin 2.7(L) 3.5 - 5.0 g/dL [facility] Bilirubin, total 4.6(H) 0.1 - 1.2 mg/dL [facility] Alk phos 151(H) 40 - 130 Units/L [facility] AST 77(H) 10 - 50 Units/L [facility] ALT 43 7 - 55 Units/L [facility] Blood 09/07/2023 8:00 AM ADJUSTER AND INSPECTOR 09/07/2023 2:47 PM ADJUSTER AND INSPECTOR Anita Gillespie MD LAB BLOOD ORDERABLES Final Result [facility] Department [place] [address] documented in this encounter Visit Diagnoses Not on filedocumented in this encounter Care Teams Winch Stripper Relationship Specialty Start Date End Date Beka Nick MD [address] [place] [address] PCP - General Family Practice 05/31/23 04/25/24 Amber Montesinos, RN Technical Applications Scientist Transplant 11/17/19 Jil Duncan MD Consulting Physician Infectious Diseases 01/10/20 Anita Gillespie MD Medical Oncologist/Dural Mechanic Medical Oncology 10/07/20 Tabitha Hurley MD [address] [place] [address] Consulting Physician Rheumatology 10/22/21 Massiel Gastelum MD [address] [place] [address] Consulting Physician Otolaryngology 08/27/22 documented as of this encounter
--- OUTSIDE RECORDS SUMMARY | 2024-10-28 06:08 | XMS_ITS | Encounter Summary ---
Author Organization [facility] Address [address] [place] [address] Care Team Providers Care Medical Technician Assistant Name Role Phone Amber Montesinos RN Unavailable [phone] Jil Duncan MD Unavailable [phone] Anita Gillespie MD Unavailable [phone] Tabitha Hurley MD Unavailable [phone] Massiel Gastelum MD Unavailable Beka Nick MD Primary Care Provider [phone] Reason for Visit * Auth/Cert Specialty Diagnoses / Procedures Referred By Contac t Referred To Contact Diagnoses Multiple myeloma (HCC) Procedures na Referral ID Status Reason Start Date Expiration Date Visits Re quested Visits Authorized [id number] 1 1 Encounter Details Date Type Department Care Team (Latest Contact Info) Description 08/23/2023 3:03 PM CDT - 09/03/2023 3:16 PM CDT Hospital Encounter [address] [id number] Anita Gillespie MD [phone] [facility] [address] [place] [address] Delia Ashby MD [address] [facility] [address] [place] [address] History of liver transplant (CMS/HCC) (HCC) (Primary Dx); 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); Jaundice; Immunocompromised patient (HCC); Colitis; Gram-negative bacteremia; 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HCC) Discharge Disposition: Discharge to home [...] on file 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 Gender Identity Not on file Sexual Orientation Straight 08/22/2021 9: 23 AM CDT documented as of this encounter Last Filed Vital Signs Vital Sign Reading Time Taken Comments Blood Pressure 99/53 09/03/2023 8:05 AM CDT Pulse 68 09/03/2023 8:05 AM CDT Temperature 36.7 ??C (98.1 ??F) 09/03/2023 8:05 AM CD T Respiratory Rate 16 09/03/2023 8:05 AM CDT Oxygen Saturation 97% 09/03/2023 9:12 AM CDT Inhaled Oxygen Concentration - - Weight 71.2 kg (157 lb) 09/02/2023 9:07 PM CDT Height 172.7 cm (5' 8 ) 09/01/2023 10:53 AM CDT Body Mass Index 23.87 09/01/2023 10:53 AM CDT documented in this encounter Discharge Summaries * Tony Baca MD - 09/03/2023 3:16 PM CDT Inpatient Discharge Summary BRIEF OVERVIEW Admitting Provider: Delia Ashby MD Discharge Provider: No att. 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 Has been on multiple different therapies including PO valganciclovir, PO letermovir, IV ganciclovir, and PO maribavir. Currently on maribavir 400 mg PO BID with continued viremia. He continuedto have CMV viremia despite maribavir with last CMV PCR around 3000. Recent resistance panel shows maribavir and ganciclovir resistance. He has been having abnormal liver enzymes: predominantly cholestatic pattern w/ rising ALT 04/2022. 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 He is status post endoscopic sinus surgery (bilateral maxillary antrostomy, total ethmoidectomy, frontal sinusotomy, and sphenoidotomy) and septoplasty on 08/28/2022 for chronic rhinosinusitis and recurrent acute exacerbations. He has history of C-MYC positive posttransplant lymphoproliferative disorder, Nadine-De La Cruz virus positive, stage EMY, IPI 3. status post 1 cycle of R-CHOP and 5 cycles of dose-adjusted EPOCH-R. He has never had any evidence of recurrence. 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 Oncology offered release from the [facility], given the low likelihood of a relapse of his PTLD at this juncture, but he would like to continue follow-up Today he was referred from ID clinic due to jaundice, fatigue, fever, and diarrhea He had fever few days ago was more than 100. He also has been vomiting recently, no blood or coffeeground emesis. Has been having diarrhea up to 5 times daily, non bloody, no melena. No chest pain He has been having cough for months and was treated at some point for pneumonia Has exertional SOB with exertion Has abdominal distention but no pain No urinary complains He has been having legs edema that got worse over the past few days causing weight gain, no weight loss. No skin rashes, no travel outside the [place], no recent correction facility stay, no sick contact. Hospital Course: Elevated LFTs Pt jaundiced, ascites, BLE edema. ALT and AST slightly elevated but his bilirubin is higher than baseline. He has been having abnormal liver enzymes: predominantly cholestatic pattern with rising ALT04/2022. 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 During this admission, CT scan showed postsurgical changes of liver transplant, no suspicious liverlesion, no biliary duct dilation, mild pneumobilia and portal and superior mesenteric veins are patent. MRI/MRCP showed stable postsurgical changes of hepatic transplantation without biliary ductal dilation or focal hepatic abnormality. Right colon and terminal ileum enterocolitis. Hepatology was consulted. They had low suspicion for acute liver transplant rejection and suspect colitis. EUS with liver and LN biopsy 08/27, pathology showed CMV in LN, Liver showed mixed picture inflammation but no e/o PTLD or definite CMV.Colonoscopy 09/01 with negative biopsy. Patient Bili stable mid 4s on disch arge. E coli bacteremia Pt reported fevers at home, fatigue, diarrhea, jaundice, abdominal distension and BLE edema. Afebrile and HDS on admission. No lines. Source unclear but suspicion for translocation from enterocolitis. Also potential pna. CT showed new peribronchovascular opacities within the right lung read as potential organizing pneumonia (inflammatory vs infectious) and new wall thickening of the ascending colon and terminal ilium compatible with enterocolitis enterocolitis (inflammatory vs infectious). MRI/MRCP also showing findings concerning for multifocal pne, right colon and terminal enterocolitis. Concern for pyelo mentioned but UA unremarkable. Bcx (08/23) fortune-sensitive E coli x 2 samples. Bcx cleared 08/24. ID consulted. Zozyn (08/23- 08/26) -> ceftriaxone and flagyl (08/26- ). Unable to obtain cultures from liver biopsy as samples already on formalin. Patient was discharged on cipro until09/06. Ansarca Pt with progressive BLE edema and ascites over past few weeks. Transaminitis and hyperbilirubinemia. Albumin 3.1. Unclear etiology. Hepatology consulted. Unable to attribute edema to liver dysfunction at this time. TTE with bubbles fairly unremarkable. EF 62%, diastolic function normal, no significant valve disease. BLE dopplers negative for acute DVT. Procedure team evaluated patient for paracentesis 08/27 but not enough fluid. Was on IV lasix here and then spironolactone. Patient was discharged on lasix 40 and spironolactone 100mg for management of ascites and LE edema. 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 CAP CT: Extensive lymphadenopathy above and below the diaphragm compatible with known post-transplant lymphoproliferative disorder. Aight axillary and left inguinal lymph node have increased insize from 07/09/2022, the majority of lymph nodes are either stable or slightly decreased in size to prior. Stable postsurgical changes of liver transplant. Neck CT: Redemonstrated findings of multistation diffuse cervical lymphadenopathy likely secondary to post transplant lymphoproliferative disor andreea, minimally improved in the neck. EUS with liver biopsy and retroperitoneal lymph node FNA for histology and flow cytometry 08/27. Medical oncology consulted. Seen by Dr Gillespie during this admission. Follow up outpatient. History of liver transplant Pt with history of cirrhosis 2/2 autoimmune hepatitis s/p liver transplant (03/2019). 08/07 Liver transplant doppler showed patent arterial, portal and hepatic venous systems. No thrombosis. Tacrolimusdose titrated and discharged on 3mg every day change from q2 days . 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 Recentresistance panel shows maribavir and ganciclovir resistance. CMV PCR stable 2890. Transplant ID consulted. Started foscarnet and valganciclovir Repeat CMV PCR on 08/30 18 and 252 on 09/03. Patient to continue foscarnet until 09/07 and continue valtrex. Letermovir needs prior auth and will be continued work up for outpatient. Acute superficial DVT of left upper extremity Asymmetric LUE edema. Doppler positive for acute superficial VTE Hypocalcemia and hypomagnesemia Likely 2/2 foscarnet. Patient reported numbness around mouth and bilateral hands most likely symptomatic hypocalcemia. Also noted to have hypomag and hypokalemia. Repleted as needed. Rhinovirus Pt with mild shortness of breath and productive cough. RVP + rhinovirus. Doing well on RA. Supportive care provided. Active Issues Requiring Follow-up: F/u ID for CMV infection and Letermovir coverage Follow up Test Results Pending at Discharge: Pending Labs Order Current Status Aerobic and anaerobic culture and gram stain Peritoneal fluid Peritoneum In process Folate In process IgG In process Lactate dehydrogenase (LD) In process Mycology (fungal) culture and stain Peritoneal fluid Peritoneum In process TSH reflex to free T4 In process Uric acid In process Vitamin B12 In process Operative Procedures Performed: Procedure(s): COLON BIOPSY Discharge Details Physical Exam at Discharge: Discharge Condition: good Pulse: 68 Resp: 16 BP: 99/53 Temp: 36.7 ??C (98.1 ??F) Weight: 71.2 kg (157 lb) Pertinent Exam Findings at Discharge: Anasarca with 2-3+ edema Discharge Disposition: Discharge to home or self care Code Status at Discharge: Full Discharge Instructions: Diet Instructions Adult Discharge Diet Diet Type: Return to previous diet Other Instructions Ambulatory referral to Home Health Service Line: Home Health and Infusion Primary disciplines requested: [facility] Services: IV Catheter Maintenance Labs IV Catheter Types: PICC Line Number of Lumens: 2 IV Catheter Flush Care Instructions: Evaluate and manage the IV catheter to maintain patency IV Catheter Dressing Change Instructions: Evaluate, manage, and change the dressing weekly Labs: BMP CBC with Differential Phosphorous Magnesium Tacrolimus Level Other Other Labs: CMV Frequency of Other Labs: 1 time a week BMP frequency: Twice a week CBC frequency: Twice a week Magnesium frequency: Once a week Phosphorous frequency: Once a week Tacrolimus Level frequency and special instructions: once a week prior to dose Date to Start Labs: 09/07/2023 Infusion Services: Infusion Therapy Infusion Therapy: Antibiotic Therapy Hydration Therapy How many antibiotic therapies: 1 ABX Medication 1: Foscarnet ABX Dose 1: 6000mg ABX Route 1: IV ABX Frequency 1: every 12 hours ABX Therapy Duration 1: 09/07 How many hydration therapies: 1 HYD Medication 1: NS HYD Dose 1: 500cc HYD Route 1: IV HYD Frequency 1: every 12 hours with the foscarnet HYD Therapy Duration 1: 09/07 Physician to follow patient's care (the person listed here will be responsible for signing ongoing orders): Other Comment: Anita Gillespie Requested Start of Care Date: 24-48 hours I certify that, based on my findings, the following services are medically necessary skilled home health services: IV Catheter Maintenance I certify that, based on my findings, the following services are medically necessary skilled home infusion services: Infusion Therapy I attest that I or another qualified licensed provider saw the patient 90 days prior to or 30 days post admission and this face to face encounter meets the necessary Home Health requirements. The face to face encounter occurred on (date): 09/01/2023 The encounter with the patient was in whole, or in part, for the following medical condition, whichis the primary reason for home health care. (List medical condition): need for IV foscarnet Clinical findings that support the need for home care: Medical condition requiring skilled assessment/education I certify that my clinical findings support patient's homebound status. Homebound criteria met because: Poor endurance Call provider for: Temperature -Temperature greater than 101 degrees F Call provider for: difficulty breathing or chest pain Call provider for: hives Call provider for: persistent dizziness or light-headedness Call provider for: persistent nausea or vomiting Call provider for: redness, tenderness, or signs of infection (pain, swelling, redness, odor or green/yellow discharge around incision site) Call provider for: severe uncontrolled pain Call provider for: headache, visual disturbances, weakness and speech changes [facility] [phone] *Provides and delivers home infusion medication *Please contact the pharmacy regarding delivery of antibiotics [facility] [phone] *Provides nursing, medication teaching, IV line dressing changes *1st visit: 09/04/23 *If you have not been contacted by the home health agency within 1 day to schedule a visit, please call the number above. Discharge Medications: Current Medications TAKE these medications tacrolimus 0.5 mg immediate-release capsule Take 1 capsule (0.5 mg total) by mouth daily For: liver transplant rejection prevention This medication is very important: It prevents organ rejection. ciprofloxacin 750 mg tablet Take 1 tablet (750 mg total) by mouth 2 (two) times a day for 3 days Commonly known as: CIPRO This medication is very important: It prevents dangerous infection. valGANciclovir 450 mg tablet Take 2 tablets (900 mg total) by mouth 2 (two) times a day For: Blood Stream/Endovascular Infection Commonly known as: VALCYTE This medication is very important: It prevents dangerous infection. foscarnet 24 mg/mL injection Infuse 250 mL (6,000 mg total) into a venous catheter every 12 (twelve) hours for 4 days Commonly known as: FOSCAVIR furosemide 40 mg tablet Take 1 tablet (40 mg total) by mouth daily Commonly known as: LASIX letermovir 480 mg tablet Take 1 tablet (480 mg total) by mouth daily Commonly known as: PREVYMIS magnesium oxide 400 mg (241.3 mg elemental magnesium) tablet Take 1 tablet (400 mg total) by mouth 2 (two) times a day for 7 days Take while on foscarnet For: low amount of magnesium in the blood Commonly known as: MAG-OX sodium chloride 0.9% 0.9 % irrigation Irrigate with 500 mL as directed every 12 (twelve) hours for 4 days Give prior to foscarnet infusion. spironolactone 100 mg tablet Take 1 tablet (100 mg total) by mouth daily Commonly [...] Future Appointments Date Time Provider Department Center 09/07/2023 To Be Determined Em Ruiz, SHAILESH [facility] None 09/08/2023 To Be Determined Parish Vyas RN [facility] None 11/02/2023 To Be Determined Rosalio Montana RN [facility] None 01/05/2024 8:15 AM LAB, CAM 7 ONC ONC LAB [facility] 01/05/2024 9:00 AM Nancy Butler NP ONC [facility]7 [facility] Oncology 01/05/2024 9:30 AM [facility] TXP [facility] 12B [facility] GASTRO 02/07/2024 8:40 AM Massiel Gastelum MD OY CLN L20 [facility] Contact Information for Follow-ups [facility] Specialty: Home Health and Hospice Pending sale to [facility] [phone] Next Steps: Follow up Questions: Service Line: Home Health and Infusion Primary disciplines requested: [facility] Services: IV Catheter Maintenance Labs IV Catheter Types: PICC Line Number of Lumens: 2 IV Catheter Flush Care Instructions: Evaluate and manage the IV catheter to maintain patency IV Catheter Dressing Change Instructions: Evaluate, manage, and change the dressing weekly Labs: BMP CBC with Differential Phosphorous Magnesium Tacrolimus Level Other Other Labs: CMV Frequency of Other Labs: 1 time a week BMP frequency: Twice a week CBC frequency: Twice a week Magnesium frequency: Once a week Phosphorous frequency: Once a week Tacrolimus Level frequency and special instructions: once a week prior to dose Date to Start Labs: 09/07/2023 Infusion Services: Infusion Therapy Infusion Therapy: Antibiotic Therapy Hydration Therapy How many antibiotic therapies: 1 ABX Medication 1: Foscarnet ABX Dose 1: 6000mg ABX Route 1: IV ABX Frequency 1: every 12 hours ABX Therapy Duration 1: 09/07 How many hydration therapies: 1 HYD Medication 1: NS HYD Dose 1: 500cc HYD Route 1: IV HYD Frequency 1: every 12 hours with the foscarnet HYD Therapy Duration 1: 09/07 Physician to follow patient's care (the person listed here will be responsible for signing ongoing orders): Other Comment: Anita Gillespie Requested Start of Care Date: 24-48 hours I certify that, based on my findings, the following services are medically necessary skilled home health services: IV Catheter Maintenance I certify that, based on my findings, the following services are medically necessary skilled home infusion services: Infusion Therapy I attest that I or another qualified licensed provider saw the patient 90 days prior to or 30 days post admission and this face to face encounter meets the necessary Home Health requirements. The face to face encounter occurred on (date): 09/01/2023 The encounter with the patient was in whole, or in part, for the following medical condition, whichis the primary reason for home health care. (List medical condition): need for IV foscarnet Clinical findings that support the need for home care: Medical condition requiring skilled assessment/education I certify that my clinical findings support patient's homebound status. 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 4000 mL 09/03/2023 3 budesonide (PULMICORT) 0.5 mg/2 mL nebulizer solution Take 0.5 mg by nebulization daily Rinse mouth with water after use. Do not swallow. 4 furosemide (LASIX) 40 mg tablet Take 1 tablet (40 mg total) by mouth daily 30 tablet 11 09/04/2023 3 letermovir (PREVYMIS) 480 mg tablet Take 1 [...] 09/03/2023 3 documented as of this encounter Ordered Prescriptions Prescription Sig Dispense Quantity Refills Last Filled Start Date End Date ciprofloxacin (CIPRO) 750 mg tablet Take 1 tablet (750 mg total) by mouth 2 (two) times a day for 3 days 6 tablet 09/03/2023 3 ciprofloxacin (CIPRO) 750 mg tablet Take 1 tablet (750 mg total) by mouth 2 (two) times a day for 3 days 6 tablet 09/03/2023 3 sodium chloride 0.9% 0.9 % irrigation Irrigate with 500 mL as directed every 12 (twelve) hours for 4 days Give prior to foscarnet infusion. 4000 mL 09/03/2023 3 foscarnet (FOSCAVIR) 24 mg/mL injection Infuse 250 mL (6,000 mg total) into a venous catheter every 12 (twelve) hours for 4 days 2000 mL 09/03/2023 3 valGANciclovir (VALCYTE) 450 mg tabletIndications: Blood Stream/Endovascula r Infection Take 2 tablets (900 mg total) by mouth 2 (two) times a day 120 tablet 11 09/03/2023 3 spironolactone (ALDACTONE) 100 mg tablet Take 1 tablet (100 mg total) by mouth daily 30 tablet 11 09/04/2023 3 magnesium oxide (MAG-OX) 400 mg (241.3 mg elemental magnesium) tabletIndications: hypomagnesemia Take 1 tablet (400 mg total) by mouth 2 (two) times a day for 7 days Take while on foscarnet 14 tablet 09/03/2023 4 furosemide (LASIX) 40 mg tablet Take 1 tablet (40 mg total) by mouth daily 30 tablet 11 09/04/2023 3 tacrolimus 0.5 mg immediate-release capsuleIndications :Prevention of Liver Transplant Rejection Take 1 capsule (0.5 mg total) by mouth daily 30 capsule 09/03/2023 3 letermovir (PREVYMIS) 480 mg tablet Take 1 tablet (480 mg total) by mouth daily 30 tablet 08/31/2023 3 documented in this encounter Discharge Disposition Disposition Code Departure Means Destination Comment s Discharge to home or self care documented in this encounter Progress Notes * Tony Baca MD - 09/03/2023 3:16 PM CDT Oncology Daily Progress Note Division of [facility] Medicine Name: Beka Lares : 1995 Today's Date: September 05, 2023 Age: 28 y.o. male Admission: 08/23/2023 Bed: [id number] LOS: 11 days Subjective Chief complaint: CMV viremia, GNB bacteremia, hyperbilirubinemia / transaminitis, concern for transplant rejection or PTLD recurrence Interval History Talked to ID, onc, and liver team and plan for discharge. Pt had improvement with diuretics with decreasing IVF with foscarnet and adding spironolactone. Objective Scheduled Meds PRN Meds Infusions No current facility-administered medications for this encounter. Vitals Most Recent Vitals: T 36.7 ??C (98.1 ??F), HR 68, BP 99/53, RR 16, SpO2 97 %. 24hr Min/Max: No data recorded No intake or output data in the 24 hours ending 09/05/231815 Physical Exam Gen: No acute distress HEENT: Atraumatic, normocephalic. icteric sclera. Neck: No thyromegaly, no JVD CV: Regular rate and rhythm. BLE edema 2+ LUE 1+ Pulm: Clear to ausculation bilaterally. Abd: Bowel sounds present. Soft, non-tender, mildly distended : Deferred. Skin: Jaundiced Neuro: Alert & oriented x 3. Psych: Appropriate mood and affect. Lines, Drains, Airways PICC Double Lumen 08/31/23 Non-tunneled Power #1 Purple, #2 Red, Right Basilic (Active) Labs/Diagnostic Review CBC: Recent Labs Lab Units 09/04/23 1145 WBC K/cumm 8.2 HEMOGLOBIN g/dL 12.5* HEMATOCRIT % 35.3* MCV fL 107.3* MCH pg 38.0* MCHC g/dL 35.4 RDW CV % 21.3* RDWSD fL 85.6* MPV fL 12.4* NEUTROS ABS K/cumm 3.8 LYMPHS PCT % 41.9 CMP: Recent Labs Lab Units 09/04/23 1145 09/03/23 0301 SODIUM mmol/L 143 143 POTASSIUM PLASMA mmol/L 3.8 3.9 CO2 mmol/L 25 26 BUN SERUM mg/dL 10 11 GLUCOSE mg/dL 109 85 CREATININE mg/dL 0.64* 0.80 CALCIUM mg/dL 9.0 8.4* CHLORIDE mmol/L 108 110 ALBUMIN g/dL -- 2.6* AST Units/L -- 81* ALT Units/L -- 43 ALK PHOS Units/L -- 195* BILIRUBIN TOTAL mg/dL -- 4.2* TOTAL PROTEIN g/dL -- 4.5* ANIONGAP mmol/L 10 7 LDH: Recent Labs Lab Units 09/02/23 0315 LACTATE DEHYDROGENASE (LDH) Units/L 434* INR - Uric Acid:- (Labs above are the most recent result obtained in the last 24 hours unless otherwise specified. For additional labs/trends, see Epic.) I have reviewed the laboratory results. Imaging Review No results found. Assessment/Plan Acute superficial DVT of left upper extremity Assessment & Plan - Asymmetric LUE edema. Doppler positive for acute superficial VTE Hypocalcemia and hypomagnesemia Assessment & Plan Likely 2/2 foscarnet. Per report, pt with tingling sensation on LUE and neck. Trop negative and EKGno signs of ischemia. Patient clarified numbness around mouth and bilateral hands most likely symptomatic hypocalcemia. - Received repletion for mg. Started mg-ox 400 q12 hrs. - Continue IV Ca gluc prn as needed. CTM Ca and replete as needed. - CTM Ca, K, Mg and phos and replete as needed Rhinovirus Assessment & Plan Pt with mild shortness of breath and productive cough. RVP + rhinovirus. Doing well on RA - Supportive care Gram-negative bacteremia Assessment & Plan Pt reports fevers at home, fatigue, diarrhea, jaundice, abdominal distension and BLE edema. Afebrile and HDS on admission. No lines. Source unclear but suspicion for translocation from enterocolitis.Also potential pna. - CT showed new peribronchovascular [...] liver biopsy as samples already on formalin [facility] Assessment & Plan Pt with progressive BLE edema and ascites [...] IV BID-> lasix 40 and spironolactone 100mg Macrocytic anemia Assessment & Plan - B12 WNL. Folate pending. Eustachian tube dysfunction, bilateral Assessment & Plan status post endoscopic sinus surgery (bilateral maxillary antrostomy, total ethmoidectomy, frontal sinusotomy, and sphenoidotomy) and septoplasty on 08/28/2022 for chronic rhinosinusitis and recurrent acute exacerbations. 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 - IVIG on 08/31 Idiopathic thrombocytopenic purpura (HCC) Assessment & Plan s/p splenectomy in 2012. Platelets wnl now. 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 08/07 Liver transplant doppler showed patent arterial, portal and hepatic venous systems. No thrombosis. - Increased tacrolimus dose at 0.5 mg every other day -> daily. Daily tacro levels. 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 Recentresistance panel shows maribavir and ganciclovir resistance. CMV PCR stable 2890. - Transplant ID following. Started foscarnet and valganciclovir (08/24- ). - Repeat CMV PCR 185. Code status : Prior Diet : Adult Discharge Diet PT/OT Dispo Rec : / Supplementary Attestation The total encounter time on this service date was 65 minutes which was spent performing a [id number] encounter and personally completing the provider-level activities documented in the note. This includes time spent prior to the visit and after the visit in direct care of the patient. This time does not include time spent in any separately reportable services. Discharge Planning Itime also spent on Coordination of care, Follow up , Counselling with patient/family, discharge exam, parent/patient education, and Other provider communication. Tony Baca MD 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 * Tony Baca MD - 09/02/2023 3:34 PM CDT Oncology Daily Progress Note Division of Hospital Medicine Name: Beka Lares : 1995 Today's Date: September 02, 2023 Age: 28 y.o. male Admission: 08/23/2023 Bed: [id number] LOS: 10 days Subjective Chief complaint: CMV viremia, GNB bacteremia, hyperbilirubinemia / transaminitis, concern for transplant rejection or PTLD recurrence Interval History Cscope biopsy normal. Patient fluid status improving some in arms but not much improvement with LE edema in the setting of IVF for his foscarnat. Had long convo with patient and also with ID and planfor foscarnat through Wednesday. Objective Scheduled Meds PRN Meds Infusions budesonide, 0.5 mg, nebulization, Daily (RT) cefTRIAXone, 2,000 mg, intravenous, Q24H PIPPA enoxaparin, 40 mg, subcutaneous, Daily-2100 foscarnet, 60 mg/kg, intravenous, Q8H PIPPA furosemide, 40 mg, oral, Daily magnesium oxide, 400 mg, oral, BID metroNIDAZOLE, 500 mg, oral, TID potassium chloride ER, 20 mEq, oral, Daily sodium chloride 0.9%, 500 mL, intravenous, Q8H PIPPA sodium chloride 0.9%, 0.5-20 mL, intra-catheter, Q8H PIPPA sodium chloride 0.9%, 0.5-20 mL, intra-catheter, Q8H PIPPA sodium chloride 0.9%, 0.5-20 mL, intra-catheter, Q8H PIPPA sodium chloride 0.9%, 5-10 mL, intra-catheter, Q12H PIPPA sodium phosphate - potassium phosphate, 250 mg, oral, BID with meals (bkfst, dinner) spironolactone, 100 mg, oral, Daily tacrolimus, 0.5 mg, oral, Daily ursodioL, 600 mg, oral, Daily with dinner valGANciclovir, 900 mg, oral, BID acetaminophen, 650 mg, oral, Q6H PRN sodium chloride 0.9%, 30 mL, intravenous, PRN sodium chloride 0.9%, 30 mL, intravenous, PRN sodium chloride 0.9%, 30 mL, intravenous, PRN heparin flush (porcine), 2-5 mL, intra-catheter, PRN heparin flush (porcine), 5 mL, intra-catheter, Once PRN magnesium sulfate, 4 g, intravenous, Q4H PRN magnesium sulfate, 6 g, intravenous, Q4H PRN ondansetron, 8 mg, oral, Q8H PRN OR ondansetron, 8 mg, intravenous, Q8H PRN perflutren protein-a (OPTISON) 3 mL in sodium chloride 0.9% 8 mL syringe, 1-8 mL, intravenous, Oncein imaging potassium chloride ER, 40 mEq, oral, Q2H PRN sodium chloride 0.9%, 0.5-20 mL, intra-catheter, PRN sodium chloride 0.9%, 0.5-20 mL, intra-catheter, PRN sodium chloride 0.9%, 0.5-20 mL, intra-catheter, PRN sodium chloride 0.9%, 10 mL, intra-catheter, Once PRN sodium chloride 0.9%, 5-20 mL, intra-catheter, PRN sodium chloride 0.9%, 30 mL/hr, intravenous, Continuous PRN sodium phosphate - potassium phosphate, 500 mg, oral, Daily PRN sodium chloride 0.9%, 30 mL/hr, Last Rate: 30 mL/hr (08/28/23 1333) Vitals Most Recent Vitals: T 36.9 ??C (98.4 ??F), HR 90, BP 120/62, RR 18, SpO2 96 %. 24hr Min/Max: Temp Min: 36.2 ??C (97.2 ??F) Max: 36.9 ??C (98.4 ??F) Pulse Min: 72 Max: 90 BP Min: 97/69 Max: 120/62 Resp Min: 14 Max: 18 SpO2 Min: 93 % Max: 96 % Intake/Output Summary (Last 24 hours) at 09/02/2023 1550 Last data filed at 09/02/2023 1545 Gross per 24 hour Intake 2790 ml Output 2400 ml Net 390 ml Physical Exam Gen: No acute distress HEENT: Atraumatic, normocephalic. icteric sclera. Neck: No thyromegaly, no JVD CV: Regular rate and rhythm. BLE edema 2+ LUE 1+ Pulm: Clear to ausculation bilaterally. Abd: Bowel sounds present. Soft, non-tender, mildly distended : Deferred. Skin: Jaundiced Neuro: Alert & oriented x 3. Psych: Appropriate mood and affect. Lines, Drains, Airways PICC Double Lumen 08/31/23 Non-tunneled Power #1 Purple, #2 Red, Right Basilic (Active) Labs/Diagnostic Review CBC: Recent Labs Lab Units 09/02/23 0315 WBC K/cumm 8.6 HEMOGLOBIN g/dL 11.1* HEMATOCRIT % 30.9* MCV fL 106.9* MCH pg 38.4* MCHC g/dL 35.9* RDW CV % 21.7* RDWSD fL 87.5* MPV fL 12.3 NEUTROS ABS K/cumm 3.5 LYMPHS PCT % 44.6 CMP: Recent Labs Lab Units 09/02/23 0315 SODIUM mmol/L 144 POTASSIUM PLASMA mmol/L 4.0 CO2 mmol/L 25 BUN SERUM mg/dL 14 GLUCOSE mg/dL 142 CREATININE mg/dL 0.73* CALCIUM mg/dL 8.4* CHLORIDE mmol/L 112* ALBUMIN g/dL 2.4* AST Units/L 77* ALT Units/L 42 ALK PHOS Units/L 199* BILIRUBIN TOTAL mg/dL 4.0* TOTAL PROTEIN g/dL 4.5* ANIONGAP mmol/L 7 LDH: Recent Labs Lab Units 09/02/23 0315 LACTATE DEHYDROGENASE (LDH) Units/L 434* INR 1.42 Uric Acid:4.3 (Labs above are the most recent result obtained in the last 24 hours unless otherwise specified. For additional labs/trends, see Epic.) I have reviewed the laboratory results. Imaging Review No results found. Assessment/Plan Acute superficial DVT of left upper extremity Assessment & Plan - Asymmetric LUE edema. Doppler positive for acute superficial VTE Hypocalcemia and hypomagnesemia Assessment & Plan Likely 2/2 foscarnet. Per report, pt with tingling sensation on LUE and neck. Trop negative and EKGno signs of ischemia. Patient clarified numbness around mouth and bilateral hands most likely symptomatic hypocalcemia. - Received repletion for mg. Started mg-ox 400 q12 hrs. - Continue IV Ca gluc prn as needed. CTM Ca and replete as needed. - CTM Ca, K, Mg and phos and replete as needed Rhinovirus Assessment & Plan Pt with mild shortness of breath and productive cough. RVP + rhinovirus. Doing well on RA - Supportive care Gram-negative bacteremia Assessment & Plan Pt reports fevers at home, fatigue, diarrhea, jaundice, abdominal distension and BLE edema. Afebrile and HDS on admission. No lines. Source unclear but suspicion for translocation from enterocolitis.Also potential pna. - CT showed new peribronchovascular [...] liver biopsy as samples already on formalin [facility] Assessment & Plan Pt with progressive BLE edema and ascites [...] IV BID-> lasix 40 and spironolactone 100mg Macrocytic anemia Assessment & Plan - B12 WNL. Folate pending. Eustachian tube dysfunction, bilateral Assessment & Plan status post endoscopic sinus surgery (bilateral maxillary antrostomy, total ethmoidectomy, frontal sinusotomy, and sphenoidotomy) and septoplasty on 08/28/2022 for chronic rhinosinusitis and recurrent acute exacerbations. 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 - IVIG on 08/31 Idiopathic thrombocytopenic purpura (HCC) Assessment & Plan s/p splenectomy in 2012. Platelets wnl now. 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 08/07 Liver transplant doppler showed patent arterial, portal and hepatic venous systems. No thrombosis. - Increased tacrolimus dose at 0.5 mg every other day -> daily. Daily tacro levels. 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 Recentresistance panel shows maribavir and ganciclovir resistance. CMV PCR stable 2890. - Transplant ID following. Started foscarnet and valganciclovir (08/24- ). - Repeat CMV PCR 185. Code status : Full Code Diet : Adult Diet Restricted; 2 GM Sodium PT/OT Dispo Rec : / Supplementary Attestation The total encounter time on this service date was 60 minutes which was spent performing a [id number] encounter and personally completing the provider-level activities documented in the note. This includes time spent prior to the visit and after the visit in direct care of the patient. This time does not include time spent in any separately reportable services. Tony Baca MD * Tony Baca MD - 09/01/2023 5:16 PM CDT Oncology Daily Progress Note Division of Hospital Medicine Name: Beka Lares : 1995 Today's Date: September 01, 2023 Age: 28 y.o. male Admission: 08/23/2023 Bed: [id number] LOS: 9 days Subjective Chief complaint: CMV viremia, GNB bacteremia, hyperbilirubinemia / transaminitis, concern for transplant rejection or PTLD recurrence Interval History Cscope today awaiting results. Pt swelling swelling getting a little better w/ diuretics but no sob. Had hypoglycemia overnight and was placed on D5. Awaiting liver biopsy results. Will maybe plan for no foscarnet at discharge. Objective Scheduled Meds PRN Meds Infusions budesonide, 0.5 mg, nebulization, Daily (RT) cefTRIAXone, 2,000 mg, intravenous, Q24H PIPPA enoxaparin, 40 mg, subcutaneous, Daily-2100 foscarnet, 60 mg/kg, intravenous, Q8H PIPPA furosemide, 60 mg, intravenous, BID DIURETIC magnesium oxide, 400 mg, oral, BID metroNIDAZOLE, 500 mg, oral, TID potassium chloride ER, 20 mEq, oral, Daily sodium chloride 0.9%, 500 mL, intravenous, Q8H PIPPA sodium chloride 0.9%, 0.5-20 mL, intra-catheter, Q8H PIPPA sodium chloride 0.9%, 0.5-20 mL, intra-catheter, Q8H PIPPA sodium chloride 0.9%, 0.5-20 mL, intra-catheter, Q8H PIPPA sodium chloride 0.9%, 5-10 mL, intra-catheter, Q12H PIPPA sodium phosphate - potassium phosphate, 250 mg, oral, BID with meals (bkfst, dinner) tacrolimus, 0.5 mg, oral, Daily ursodioL, 600 mg, oral, Daily with dinner valGANciclovir, 900 mg, oral, BID acetaminophen, 650 mg, oral, Q6H PRN sodium chloride 0.9%, 30 mL, intravenous, PRN sodium chloride 0.9%, 30 mL, intravenous, PRN sodium chloride 0.9%, 30 mL, intravenous, PRN heparin flush (porcine), 2-5 mL, intra-catheter, PRN heparin flush (porcine), 5 mL, intra-catheter, Once PRN magnesium sulfate, 4 g, intravenous, Q4H PRN magnesium sulfate, 6 g, intravenous, Q4H PRN ondansetron, 8 mg, oral, Q8H PRN OR ondansetron, 8 mg, intravenous, Q8H PRN perflutren protein-a (OPTISON) 3 mL in sodium chloride 0.9% 8 mL syringe, 1-8 mL, intravenous, Oncein imaging potassium chloride ER, 40 mEq, oral, Q2H PRN sodium chloride 0.9%, 0.5-20 mL, intra-catheter, PRN sodium chloride 0.9%, 0.5-20 mL, intra-catheter, PRN sodium chloride 0.9%, 0.5-20 mL, intra-catheter, PRN sodium chloride 0.9%, 10 mL, intra-catheter, Once PRN sodium chloride 0.9%, 5-20 mL, intra-catheter, PRN sodium chloride 0.9%, 30 mL/hr, intravenous, Continuous PRN sodium phosphate - potassium phosphate, 500 mg, oral, Daily PRN dextrose 5%, 75 mL/hr, Last Rate: 75 mL/hr (08/31/23 2324) sodium chloride 0.9%, 30 mL/hr, Last Rate: 30 mL/hr (08/28/23 1333) sodium chloride 0.9%, 50 mL/hr Vitals Most Recent Vitals: T 36.2 ??C (97.2 ??F), HR 72, BP 114/62, RR 16, SpO2 96 %. 24hr Min/Max: Temp Min: 36.1 ??C (97 ??F) Max: 36.7 ??C (98 ??F) Pulse Min: 65 Max: 91 BP Min: 96/59 Max: 128/75 Resp Min: 14 Max: 19 SpO2 Min: 93 % Max: 99 % Intake/Output Summary (Last 24 hours) at 09/01/2023 1720 Last data filed at 09/01/2023 1624 Gross per 24 hour Intake 100 ml Output 575 ml Net -475 ml Physical Exam Gen: No acute distress HEENT: Atraumatic, normocephalic. icteric sclera. Neck: No thyromegaly, no JVD CV: Regular rate and rhythm. BLE edema 2+ LUE 1+ Pulm: Clear to ausculation bilaterally. Abd: Bowel sounds present. Soft, non-tender, mildly distended : Deferred. Skin: Jaundiced Neuro: Alert & oriented x 3. Psych: Appropriate mood and affect. Lines, Drains, Airways PICC Double Lumen 08/31/23 Non-tunneled Power #1 Purple, #2 Red, Right Basilic (Active) Labs/Diagnostic Review CBC: Recent Labs Lab Units 08/31/23 2115 WBC K/cumm 9.2 HEMOGLOBIN g/dL 11.5* HEMATOCRIT % 31.9* MCV fL 104.6* MCH pg 37.7* MCHC g/dL 36.1* RDW CV % 20.7* RDWSD fL 79.5* MPV fL 12.0 NEUTROS ABS K/cumm 4.3 LYMPHS PCT % 38.0 CMP: Recent Labs Lab Units 08/31/23 2325 08/31/23 2115 SODIUM mmol/L -- 145 POTASSIUM PLASMA mmol/L -- 3.8 CO2 mmol/L -- 26 BUN SERUM mg/dL -- 11 GLUCOSE mg/dL -- 68* POC GLUCOSE MONITOR mg/dL 107 -- CREATININE mg/dL -- 0.71* CALCIUM mg/dL -- 8.1* CHLORIDE mmol/L -- 110 ALBUMIN g/dL -- 2.7* AST Units/L -- 82* ALT Units/L -- 46 ALK PHOS Units/L -- 202* BILIRUBIN TOTAL mg/dL -- 5.3* TOTAL PROTEIN g/dL -- 4.8* ANIONGAP mmol/L -- 9 LDH: Recent Labs Lab Units 08/30/23 0347 LACTATE DEHYDROGENASE (LDH) Units/L 468* INR 1.42 Uric Acid:- (Labs above are the most recent result obtained in the last 24 hours unless otherwise specified. For additional labs/trends, see Epic.) I have reviewed the laboratory results. Imaging Review No results found. Assessment/Plan Acute superficial DVT of left upper extremity Assessment & Plan - Asymmetric LUE edema. Doppler positive for acute superficial VTE Hypocalcemia and hypomagnesemia Assessment & Plan Likely 2/2 foscarnet. Per report, pt with tingling sensation on LUE and neck. Trop negative and EKGno signs of ischemia. Patient clarified numbness around mouth and bilateral hands most likely symptomatic hypocalcemia. - Received repletion for mg. Started mg-ox 400 q12 hrs. - Continue IV Ca gluc prn as needed. CTM Ca and replete as needed. - CTM Ca, K, Mg and phos and replete as needed Rhinovirus Assessment & Plan Pt with mild shortness of breath and productive cough. RVP + rhinovirus. Doing well on RA - Supportive care Gram-negative bacteremia Assessment & Plan Pt reports fevers at home, fatigue, diarrhea, jaundice, abdominal distension and BLE edema. Afebrile and HDS on admission. No lines. Source unclear but suspicion for translocation from enterocolitis.Also potential pna. - CT showed new peribronchovascular [...] liver biopsy as samples already on formalin [facility] Assessment & Plan Pt with progressive BLE edema and ascites over past few weeks. Transaminitis and hyperbilirubinemia. Albumin 3.1. Unclear etiology. - Hepatology consulted. Do not think this is related to liver disease. Liver bx pending. - UA without proteinuria. - TTE with bubbles fairly unremarkable. EF 62%, diastolic function normal, no significant valve disease. - BLE dopplers negative for acute DVT. - Procedure team evaluated patient for paracentesis 08/27 but not enough fluid - Diuretics discontinued per liver's recommendations. Discussed today and ok to restart. Restarted lasix 60 IV BID. Consider adding spironolactone. Macrocytic anemia Assessment & Plan - B12 WNL. Folate pending. Eustachian tube dysfunction, bilateral Assessment & Plan status post endoscopic sinus surgery (bilateral maxillary antrostomy, total ethmoidectomy, frontal sinusotomy, and sphenoidotomy) and septoplasty on 08/28/2022 for chronic rhinosinusitis and recurrent acute exacerbations. Elevated LFTs Assessment & Plan He has been having abnormal liver enzymes: [...] Bili/LFTs downtrended and have stabilized. CTM. - Colonoscopy Wednesday. 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 - IVIG on 08/31 Idiopathic thrombocytopenic purpura (HCC) Assessment & Plan s/p splenectomy in 2012. Platelets wnl now. 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 08/07 Liver transplant doppler showed patent arterial, portal and hepatic venous systems. No thrombosis. - Increased tacrolimus dose at 0.5 mg every other day -> daily. Daily tacro levels. 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 Recentresistance panel shows maribavir and ganciclovir resistance. CMV PCR stable 2890. - Transplant ID following. Started foscarnet and valganciclovir (08/24- ). - Repeat CMV PCR 185. Code status : Full Code Diet : NPO Diet PT/OT Dispo Rec : / Supplementary Attestation The total encounter time on this service date was 55 minutes which was spent performing a [id number] encounter and personally completing the provider-level activities documented in the note. This includes time spent prior to the visit and after the visit in direct care of the patient. This time does not include time spent in any separately reportable services. Tony Baca MD * Tony aBca MD - 08/31/2023 7:05 PM CDT Oncology Daily Progress Note Division of Hospital Medicine Name: Beka Lares : 1995 Today's Date: August 31, 2023 Age: 28 y.o. male Admission: 08/23/2023 Bed: [id number] LOS: 8 days Subjective Chief complaint: CMV viremia, GNB bacteremia, hyperbilirubinemia / transaminitis, concern for transplant rejection or PTLD recurrence Interval History Pt got IVIG today. Placed a picc line for IV foscarnet in outpatient. Pt qtc 490s so will keep on ctx for now. Discussed mgt with ID, onc, GI. Plan for csope tomorrow. Objective Scheduled Meds PRN Meds Infusions budesonide, 0.5 mg, nebulization, Daily (RT) cefTRIAXone, 2,000 mg, intravenous, Q24H PIPPA enoxaparin, 40 mg, subcutaneous, Daily-2100 foscarnet, 60 mg/kg, intravenous, Q8H PIPPA furosemide, 60 mg, intravenous, BID DIURETIC lidocaine, 1-2 mL, subcutaneous, Once magnesium oxide, 400 mg, oral, BID metroNIDAZOLE, 500 mg, oral, TID polyethylene glycol, 2,000 mL, oral, BID potassium chloride ER, 20 mEq, oral, Daily sodium chloride 0.9%, 500 mL, intravenous, Q8H PIPPA sodium chloride 0.9%, 0.5-20 mL, intra-catheter, Q8H PIPPA sodium chloride 0.9%, 0.5-20 mL, intra-catheter, Q8H PIPPA sodium chloride 0.9%, 0.5-20 mL, intra-catheter, Q8H PIPPA sodium chloride 0.9%, 5-10 mL, intra-catheter, Q12H PIPPA sodium phosphate - potassium phosphate, 250 mg, oral, BID with meals (bkfst, dinner) tacrolimus, 0.5 mg, oral, Daily ursodioL, 600 mg, oral, Daily with dinner valGANciclovir, 900 mg, oral, BID acetaminophen, 650 mg, oral, Q6H PRN sodium chloride 0.9%, 30 mL, intravenous, PRN sodium chloride 0.9%, 30 mL, intravenous, PRN sodium chloride 0.9%, 30 mL, intravenous, PRN heparin flush (porcine), 2-5 mL, intra-catheter, PRN heparin flush (porcine), 5 mL, intra-catheter, Once PRN magnesium sulfate, 4 g, intravenous, Q4H PRN magnesium sulfate, 6 g, intravenous, Q4H PRN ondansetron, 8 mg, oral, Q8H PRN OR ondansetron, 8 mg, intravenous, Q8H PRN perflutren protein-a (OPTISON) 3 mL in sodium chloride 0.9% 8 mL syringe, 1-8 mL, intravenous, Oncein imaging potassium chloride ER, 40 mEq, oral, Q2H PRN sodium chloride 0.9%, 0.5-20 mL, intra-catheter, PRN sodium chloride 0.9%, 0.5-20 mL, intra-catheter, PRN sodium chloride 0.9%, 0.5-20 mL, intra-catheter, PRN sodium chloride 0.9%, 10 mL, intra-catheter, Once PRN sodium chloride 0.9%, 5-20 mL, intra-catheter, PRN sodium chloride 0.9%, 30 mL/hr, intravenous, Continuous PRN sodium phosphate - potassium phosphate, 500 mg, oral, Daily PRN sodium chloride 0.9%, 30 mL/hr, Last Rate: 30 mL/hr (08/28/23 1333) Vitals Most Recent Vitals: T 36.3 ??C (97.3 ??F), HR 76, BP 128/75, RR 16, SpO2 99 %. 24hr Min/Max: Temp Min: 36.3 ??C (97.3 ??F) Max: 36.9 ??C (98.4 ??F) Pulse Min: 76 Max: 88 BP Min: 115/57 Max: 128/75 Resp Min: 16 Max: 20 SpO2 Min: 94 % Max: 100 % Intake/Output Summary (Last 24 hours) at 08/31/2023 1907 Last data filed at 08/31/2023 1835 Gross per 24 hour Intake -- Output 5650 ml Net -5650 ml Physical Exam Gen: No acute distress HEENT: Atraumatic, normocephalic. icteric sclera. Neck: No thyromegaly, no JVD CV: Regular rate and rhythm. BLE edema 2+ LUE 1+ Pulm: Clear to ausculation bilaterally. Abd: Bowel sounds present. Soft, non-tender, mildly distended : Deferred. Skin: Jaundiced Neuro: Alert & oriented x 3. Psych: Appropriate mood and affect. Lines, Drains, Airways PICC Double Lumen 08/31/23 Non-tunneled Power #1 Purple, #2 Red, Right Basilic (Active) Peripheral IV 08/31/23 22 G Anterior;Right Forearm (Active) Labs/Diagnostic Review CBC: Recent Labs Lab Units 08/31/23 0237 WBC K/cumm 10.3* HEMOGLOBIN g/dL 10.5* HEMATOCRIT % 28.1* MCV fL 102.6* MCH pg 38.3* MCHC g/dL 37.4* RDW CV % 20.8* RDWSD fL 74.0* MPV fL 12.2 NEUTROS ABS K/cumm 4.7 LYMPHS PCT % 39.7 CMP: Recent Labs Lab Units 08/31/23 0237 SODIUM mmol/L 144 POTASSIUM PLASMA mmol/L 4.3 CO2 mmol/L 24 BUN SERUM mg/dL 12 GLUCOSE mg/dL 77 CREATININE mg/dL 0.71* CALCIUM mg/dL 8.7 CHLORIDE mmol/L 112* ALBUMIN g/dL 2.4* AST Units/L 83* ALT Units/L 45 ALK PHOS Units/L 191* BILIRUBIN TOTAL mg/dL 4.1* TOTAL PROTEIN g/dL 4.0* ANIONGAP mmol/L 8 LDH: Recent Labs Lab Units 08/30/23 0347 LACTATE DEHYDROGENASE (LDH) Units/L 468* INR 1.38 Uric Acid:3.4 (Labs above are the most recent result obtained in the last 24 hours unless otherwise specified. For additional labs/trends, see Epic.) I have reviewed the laboratory results. Imaging Review No results found. Assessment/Plan Acute superficial DVT of left upper extremity Assessment & Plan - Asymmetric LUE edema. Doppler positive for acute superficial VTE Hypocalcemia and hypomagnesemia Assessment & Plan Likely 2/2 foscarnet. Per report, pt with tingling sensation on LUE and neck. Trop negative and EKGno signs of ischemia. Patient clarified numbness around mouth and bilateral hands most likely symptomatic hypocalcemia. - Received repletion for mg. Started mg-ox 400 q12 hrs. - Continue IV Ca gluc prn as needed. CTM Ca and replete as needed. - CTM Ca, K, Mg and phos and replete as needed Rhinovirus Assessment & Plan Pt with mild shortness of breath and productive cough. RVP + rhinovirus. Doing well on RA - Supportive care Gram-negative bacteremia Assessment & Plan Pt reports fevers at home, fatigue, diarrhea, jaundice, abdominal distension and BLE edema. Afebrile and HDS on admission. No lines. Source unclear but suspicion for translocation from enterocolitis.Also potential pna. - CT showed new peribronchovascular [...] liver biopsy as samples already on formalin [facility] Assessment & Plan Pt with progressive BLE edema and ascites over past few weeks. Transaminitis and hyperbilirubinemia. Albumin 3.1. Unclear etiology. - Hepatology consulted. Do not think this is related to liver disease. Liver bx pending. - UA without proteinuria. - TTE with bubbles fairly unremarkable. EF 62%, diastolic function normal, no significant valve disease. - BLE dopplers negative for acute DVT. - Procedure team evaluated patient for paracentesis 08/27 but not enough fluid - Diuretics discontinued per liver's recommendations. Discussed today and ok to restart. Restarted lasix 60 IV BID. Consider adding spironolactone. Macrocytic anemia Assessment & Plan - B12 WNL. Folate pending. Eustachian tube dysfunction, bilateral Assessment & Plan status post endoscopic sinus surgery (bilateral maxillary antrostomy, total ethmoidectomy, frontal sinusotomy, and sphenoidotomy) and septoplasty on 08/28/2022 for chronic rhinosinusitis and recurrent acute exacerbations. Elevated LFTs Assessment & Plan He has been having abnormal liver enzymes: [...] Bili/LFTs downtrended and have stabilized. CTM. - Colonoscopy Wednesday. 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 - Pt due for IVIg Idiopathic thrombocytopenic purpura (HCC) Assessment & Plan s/p splenectomy in 2012. Platelets wnl now. 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 08/07 Liver transplant doppler showed patent arterial, portal and hepatic venous systems. No thrombosis. - Increased tacrolimus dose at 0.5 mg every other day -> daily. Daily tacro levels. 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 Recentresistance panel shows maribavir and ganciclovir resistance. CMV PCR stable 2890. - Transplant ID following. Started foscarnet and valganciclovir (08/24- ). - Repeat CMV PCR pending. Touch base with ID regarding treatment duration once results are back. Code status : Full Code Diet : Adult Diet Clear Liquid NPO Diet NPO Diet NPO Diet PT/OT Dispo Rec : / Supplementary Attestation The total encounter time on this service date was 60 minutes which was spent performing a [id number] encounter and personally completing the provider-level activities documented in the note. This includes time spent prior to the visit and after the visit in direct care of the patient. This time does not include time spent in any separately reportable services. Tony Baca MD * Cathleen Daniel NP - 08/31/2023 3:01 PM CDT Images from the original note were not included. Medical Oncology Subsequent Consult Note Date: 08/31/2023 Name: Beka Lares : 1995 AGE: 28 y.o. Chief Complaint: CMV viremia, GNB bacteremia, hyperbilirubinemia / transaminitis, concern for transplant rejection or PTLD recurrence Interval History: CMV pcr continues to down trend, liver biopsy pending, plan for colonoscopy tomorrow, LFTs continue to slowly improve. Plan to give IVIG dose while inpatient. Updated patient on possible discharge tomorrow post procedure if no acute findings and pending final ID recs. Overall he is feeling improved and anxious to discharge. Oncology History Overview Note PMH: 1. Liver transpant x 2 for acute liver failure (autoimmune hepatitis), 1998 2. 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 Covid vaccines J&J 02/08/21 6. 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 BMBx --> none EBV+ cells otherwise normal, 04/07/17 04/28/2017 - 05/02/2017 Hospital Admission Admit fevers/neutropenia, thrombocytopenia (4k) --> IVIG x 2 (plts 4k --> 230k), steroids, Neupogen 05/03/2017 Initial Diagnosis R cervical LNBx --> PTLD ( early ), FISH --> c-myc+, IGH+. Histologic Type: CD20+, CD10+, Bcl-6+, c-myc+ (90%), JAKOB+, Ki-67 95%, FISH - c-myc+, IGH+, Bcl-2-, Bcl-6-. Stage at diagnosis: EMY. Initial sites of disease: cervical, axill, mesenteric, RP LAD, lungs, bowel. IPI: 3 (stage, # EN sites, LDH) 08/03/2017 Biopsy R cervical LNBx --> JAKOB+ PTLD ( monomorphic ), c-myc+ by FISH 08/19/2017 Imaging Significant Findings PET/CT --> diffuse LAD with R cervical (SUV 41.7), bilat ax, RP, pulm nodules, bowel 08/25/2017 - 12/08/2017 Chemotherapy R-CHOP x 1, EPOCH-R x 5--> MD after C2 (5PS 4), CR p C6 (uptake in small bowel SUV 15) 10/06/2017 - Chemotherapy IT MTX x 1 --> D/c due to severe MANUEL and evidence intracranial hypotention 10/2017 - 12/2017 Hospital Admission Admit: PE, spinal headache --> dc'd on Lovenox, 10/19/17-10/21/17 Admit: neutropenic fever, sepsis, rhinovirus, 11/28/17-12/05/17 Admit: neutropenic fever, rhinovirus, 12/17/17-12/21/17 12/09/2018 Biopsy R cervical LNBx --> florid follicular hyperplasia, JAKOB --> focally+ 03/22/2019 Remission Spontaneous regression 10/10/2019 - 10/13/2019 Hospital Admission Fevers, pneumonia, marked increase in cervical LAD. PET/CT --> diffuse FDG-avid LAD. Cervical LNBx --> reactive, JAKOB- 12/21/2019 - 12/22/2019 Hospital Admission Fever 102, rhino+, ID visit 12/25 still febrile --> Levaquin with resolution 02/02/2020 Biopsy Liver bx of 2.7 cm hyperenehancing lesion seen on MRI --> necrosis, chronic inflammation --> Rx antibiotics x 14 d. Repeat MRI --> slight decrease in enhancing lesion 10/01/[address]-->worsening diffuse cervical lymphadenopathy, extensive abdomenopelvic and chest lymphadenopathy, new groundglass nodules 10/07/2021 Biopsy Left Axillary Bx-->follicular hyperplasia, scattered cells with viral inclusions and small non-necrotizing granulomas, CMV positive 07/09/2022 - 07/12/2022 Hospital Admission Rhino + Adeno, CMV viremia Active Therapy Plans for Beka Lares Hematology: Immune Globulin (GAMUNEX) - 10% (FERNANDEZ ONLY) Current treatment: Treatment 3 (Planned for 12/04/2020) Following planned treatment: Treatment 4 (Planned for 01/01/2021) Objective Vitals: Vitals: 08/31/23 0826 BP: BP Location: Patient Position: Pulse: Resp: Temp: TempSrc: SpO2: 94% Weight: Laboratory Interpretation CBC: Recent Labs Lab Units 08/31/23 0237 WBC K/cumm 10.3* HEMOGLOBIN g/dL 10.5* HEMATOCRIT % 28.1* MCV fL 102.6* NEUTROS ABS K/cumm 4.7 Lab Results Component Value Date GLUCOSE 77 08/31/2023 CALCIUM 8.7 08/31/2023 SODIUM 144 08/31/2023 POTASSIUM 4.3 08/31/2023 CO2 24 08/31/2023 CHLORIDE 112 (H) 08/31/2023 BUNSER 12 08/31/2023 CREATININE 0.71 (L) 08/31/2023 CMP: Recent Labs Lab Units 08/31/23 023 SODIUM mmol/L 144 POTASSIUM PLASMA mmol/L 4.3 CO2 mmol/L 24 BUN SERUM mg/dL 12 GLUCOSE mg/dL 77 CREATININE mg/dL 0.71* CALCIUM mg/dL 8.7 CHLORIDE mmol/L 112* ALBUMIN g/dL 2.4* AST Units/L 83* ALT Units/L 45 ALK PHOS Units/L 191* BILIRUBIN TOTAL mg/dL 4.1* TOTAL PROTEIN g/dL 4.0* ANIONGAP mmol/L 8 Lab Results Component Value Date MAGNESIUM 1.6 08/31/2023 PHOS 5.4 (H) 08/31/2023 PT: Recent Labs Lab Units 08/30/23 034 PROTIME (PT) sec 15.7* PTT: Recent Labs Lab Units 08/30/23 0347 APTT sec 33 A Positive Assessment Jaundice/elevated LFTS LE edema Bili 4.3,->5.2 C/f worsening CMV vs rejection. S/p liver bx was done 08/2022, with no signs of classic acute cellular rejection, s/p IVIG 08/23 CT CAP> New wall thickening of the ascending colon and terminal ilium compatible with enterocolitis nonspecific maybe infectious or inflammatory. New peribronchovascular opacities within theright lung which are favored to be infectious/inflammatory, possibly related to organizing pneumonia. -continue home Ursodiol 600mg daily -TTE, diuretics prn -Liver consult appreciate recs, low suspicion for acute liver transplant rejection. Suspect colitis. -s/p Liver biopsy 08/27 path pending -plan for colonoscopy 09/01 Cytomegalovirus infection CMV DNA positivity since at least April 2017 at varying levels; since 06/2019 CMV 2-3 logIU/ml on Valganciclovir 900mg BID. Has been on multiple different therapies including PO valganciclovir, PO letermovir, IV ganciclovir, and PO maribavir with improved CMV levels but continued low level viremia Continued CMV viremia despite maribavir with last CMV PCR around 3000. Recent resistance panel shows maribavir and ganciclovir resistance. -Initiate IV Foscarnet +oral valganciclovir per ID recs 08/24->home infusion set up pending -ID c/s appreciate recs GNB bacteremia -source unclear, daily blood cultures until clear -ID consult -Zosyn, Vancomycin 08/23 -D/c vanc (08/23- 08/24). Zozyn (08/23- 08/26) -> ceftriaxone and flagyl (08/26- ) plan to transition to Cipro/flagl at discharge. appreciate primary team care History of liver transplant OLT 03/30/1999 for fulminant autoimmune hepatitis, course c/b PTLD and intermittent CMV viremia. Followed by Dr. Gresham. 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 S/p RCHOP x1 and DA-EPOCH-R x5 (completed 12/2017), IT-MTX C3 only d/t intracranial hypotension, w/ post-C2 MD, CR at end-of treatment. No e/o recurrence though course complicated by multiple episodes of progressive annika opathy w/ spontaneous resolution -IVIG dose prior to discharge 08/31 -follows with Dr. Pena updated 08/31 Cathleen Daniel RN, ANP- Nurse Practitioner Medical Oncology [phone] * Sapna Owen - 08/31/2023 2:06 PM CDT NUTRITION ASSESSMENT Nutrition Status: Patient appears adequately nourished at this time. REASON FOR ASSESSMENT: Length of Stay Encounter Date: 08/31/23 2:16 PM Admission Date: 08/23/2023 LOS: 8 days HPI: Patient is a 28 y.o. male admitted for fever and jaundice. PMHx: refractory ITP s/p splenectomy in 2012, cirrhosis due to autoimmune hepatitis s/p liver transplant 03/30/19 c/b PTLD (c-Myc, EBV+) s/p CHOP x 1 (2016), DA=EPOCH-R x 5 (09/2017-12/2017) with IT MTX who achieved complete remission 12/2017 with intermittent CMV viremia since 06/2019, C-MYC positive posttransplant lymphoproliferative disorder, Nadine-De La Cruz virus positive, stage EMY, IPI 3. Objective Past Medical History: Diagnosis Date Cancer (CMS/HCC) (HCC) CMV (cytomegalovirus infection) (HCC) Community acquired pneumonia [...] Types: Alcohol Sexual activity: Defer Alcohol Use: Not At Risk (08/28/2022) AUDIT-C Frequency of Alcohol Consumption: 2-4 times a month Average Number of Drinks: 1 or 2 Frequency of Binge Drinking: Never MEDICATION/LAB REVIEW: Scheduled Meds: budesonide, 0.5 mg, nebulization, Daily (RT) cefTRIAXone, 2,000 mg, intravenous, Q24H PIPPA enoxaparin, 40 mg, subcutaneous, Daily-2100 foscarnet, 60 mg/kg, intravenous, Q8H PIPPA furosemide, 60 mg, intravenous, BID DIURETIC immune globulin, 400 mg/kg (Charlotte), intravenous, Once magnesium oxide, 400 mg, oral, BID metroNIDAZOLE, 500 mg, oral, TID potassium chloride ER, 20 mEq, oral, Daily sodium chloride 0.9%, 500 mL, intravenous, Q8H PIPPA sodium chloride 0.9%, 0.5-20 mL, intra-catheter, Q8H PIPPA sodium phosphate - potassium phosphate, 250 mg, oral, BID with meals (bkfst, dinner) tacrolimus, 0.5 mg, oral, Daily ursodioL, 600 mg, oral, Daily with dinner valGANciclovir, 900 mg, oral, BID Continuous Infusions: sodium chloride 0.9%, 30 mL/hr, Last Rate: 30 mL/hr (08/28/23 1333) PRN Meds: acetaminophen sodium chloride 0.9% heparin flush (porcine) heparin flush (porcine) magnesium sulfate magnesium sulfate ondansetron OR ondansetron perflutren protein-a (OPTISON) 3 mL in sodium chloride 0.9% 8 mL syringe potassium chloride ER sodium chloride 0.9% sodium chloride 0.9% sodium chloride 0.9% sodium phosphate - potassium phosphate Recent Labs Lab Units 08/31/23 0237 08/30/23 0347 08/29/23 0310 SODIUM mmol/L 144 145 144 POTASSIUM PLASMA mmol/L 4.3 4.2 3.8 CHLORIDE mmol/L 112* 115* 112* CO2 mmol/L 24 25 25 BUN SERUM mg/dL 12 11 10 CREATININE mg/dL 0.71* 0.79* 0.72* [id number] mL/min/1.73 m2 >90 >90 >90 CALCIUM mg/dL 8.7 8.3* 7.9* ALBUMIN g/dL 2.4* 2.5* 2.5* PHOSPHORUS PLASMA mg/dL 5.4* 3.4 3.3 MAGNESIUM mg/dL 1.6 1.6 1.6 Recent Labs Lab Units 08/31/23 0237 08/30/23 0347 08/29/23 0310 08/28/23 0300 08/27/23 0331 08/26/23 0304 08/25/23 0533 GLUCOSE mg/dL 77 83 77 85 99 79 83 ALT Date Value Ref Range Status 08/31/2023 45 7 - 55 Units/L Final AST Date Value Ref Range Status 08/31/2023 83 (H) 10 - 50 Units/L Final Comment: Hemolyzed; result may be falsely elevated Alk phos Date Value Ref Range Status 08/31/2023 191 (H) 40 - 130 Units/L Final Lab Results Component Value Date HDL 31 (L) 06/12/2020 LDLCALC 76 06/12/2020 CHOL 135 06/12/2020 TRIG 139 06/12/2020 NURSING ASSESSMENT: Last BM Date: 08/30/23 Bowel Sounds (All Quadrants): Active Jerod Scale Score: 20 Skin Integrity: Intact Vital Signs BP: 126/66 Temp: 36.9 ??C (98.4 ??F) Pulse: 78 Resp: 16 SpO2: 94 % Intake/Output Summary (Last 24 hours) at 08/31/2023 1416 Last data filed at 08/31/2023 1340 Gross per 24 hour Intake -- Output 5175 ml Net -5175 ml Adult Malnutrition Scoring Tool (MST) What diet do you follow at home?: regular Have You Recently Lost Weight Without Trying?: No Have you been eating poorly because of a decreased appetite?: Yes Malnutrition Screening Tool (MST) Score: 1 Anthropometrics Weight: 72.6 kg (160 lb) Admission Weight : 65.8 kg Weight Change: -0.90 kg (-2.00 lbs) IBW/kg (Calculated) : 69.8 kg Height: 172.7 cm (5' 7.99 ) Weight in (lb) to have BMI = 25: 164 BMI (Calculated): 24.3 Wt Readings from Last 10 Encounters: 08/30/23 72.6 kg (160 lb) 08/26/23 65.8 kg (145 lb) 08/23/23 66.2 kg (146 lb) 05/31/23 61.2 kg (135 lb) 04/19/23 59.4 kg (131 lb) 12/30/22 60.7 kg (133 lb 12.8 oz) 12/30/22 62 kg (136 lb 9.6 oz) 08/31/22 63.5 kg (140 lb) 08/17/22 65.8 kg (145 lb) 07/11/22 58 kg (127 lb 14.6 oz) ESTIMATED NEEDS: Total Kcal/kg Estimated Needs : 1959.55 Kcal/k. Type of Weight Used for Estimated Kcals: Current Total Protein Estimated Needs (gm): 94.35 Protein Needs Based on g/k.3 Type of Weight Used for Estimated Protein : Current Total Fluid Estimated Needs: 1745 Fluid Needs Based on : 25 ml/kg Type of Weight Used for EstimatedFluid Needs: Charlotte Dietary Orders (From admission, onward) Start Ordered 08/31/23 0852 Adult Diet Clear Liquid Diet effective now Question: ([facility]) Diet type Answer: Clear Liquid 08/31/23 0851 Allergies: Reviewed. IMPRESSION: Pt seen for LOS (8 Days). Pt reported appetite has been good and has been the same. He typically eats about big 2 meals a day and snacking in-between when he is at home. Pt denies any chewing or swallowing issues. Pt denies N/V/D or constipation. Pt stated he has had regular BM, but they have lessened since being admitted. Typically he has 3-4 BM/day and it has decreased to two. BM are typically soft, loose stools. Pt stated UBW is #130. Per chart, ABW is 160#. Per chart, wt has been increased from 145# on 08/23 to 160# 08/31. Pt is experiencing fluid retention. Wt gain can be associated with fluid retention. Anticipate wt loss since pt is on Lasix 2x daily. Will continue to monitor wt. Labs: 10/31 - Cl 112, Cr 0.71, Phos 5.4. Rest of Lytes WNL. ASPEN MALNUTRITION ASSESSMENT: N/A NUTRITION FOCUSED PHYSICAL EXAM: N/A NUTRITION DIAGNOSIS: Nutrition Diagnosis 1: No nutrition issue at this time INTERVENTION(S): Summary: Assess for nutrition changes, Home diet preferences within the limits of nutrition care order, Follow up per policy, Vitamin/mineral supplementation, Encouragement, Initial assessment, Meals and snacks Discussed supplementation preference if pt experiences loss of appetite. Recommend MVI supplement daily Will continue to monitor: nutrition-related lab values, PO intake, wt changes, and BM. GOAL(S): Continue adequate PO intakes MONITORING/EVALUATION: Appetite, Electrolyte changes, Weight changes, Stool patterns, Labs, I/O, Hydration status, Diet-related questions, Diet advancement Cosigned by Adina Chandler RD at 08/31/2023 3:52 PM CDT * Karena Mak MD - 08/30/2023 5:02 PM CDT Oncology Daily Progress Note Division of Hospital Medicine Name: Beka Lares : 1995 Today's Date: August 30, 2023 Age: 28 y.o. male Admission: 08/23/2023 Bed: [id number] LOS: 7 days Subjective Chief complaint: CMV viremia, GNB bacteremia, hyperbilirubinemia / transaminitis, concern for transplant rejection or PTLD recurrence Interval History No acute events overnight. Continues to experience edema. Bili and LFTs downtrended and have been stable over past days. CMV PCR pending. Objective Scheduled Meds PRN Meds Infusions budesonide, 0.5 mg, nebulization, Daily (RT) cefTRIAXone, 2,000 mg, intravenous, Q24H PIPPA enoxaparin, 40 mg, subcutaneous, Daily-2100 foscarnet, 60 mg/kg, intravenous, Q8H PIPPA furosemide, 60 mg, intravenous, BID DIURETIC magnesium oxide, 400 mg, oral, BID metroNIDAZOLE, 500 mg, oral, TID potassium chloride ER, 20 mEq, oral, Daily sodium chloride 0.9%, 500 mL, intravenous, Q8H PIPPA sodium chloride 0.9%, 0.5-20 mL, intra-catheter, Q8H PIPPA sodium phosphate - potassium phosphate, 250 mg, oral, BID with meals (bkfst, dinner) tacrolimus, 0.5 mg, oral, Daily ursodioL, 600 mg, oral, Daily with dinner valGANciclovir, 900 mg, oral, BID acetaminophen, 650 mg, oral, Q6H PRN sodium chloride 0.9%, 30 mL, intravenous, PRN heparin flush (porcine), 2-5 mL, intra-catheter, PRN heparin flush (porcine), 5 mL, intra-catheter, Once PRN magnesium sulfate, 4 g, intravenous, Q4H PRN magnesium sulfate, 6 g, intravenous, Q4H PRN ondansetron, 8 mg, oral, Q8H PRN OR ondansetron, 8 mg, intravenous, Q8H PRN perflutren protein-a (OPTISON) 3 mL in sodium chloride 0.9% 8 mL syringe, 1-8 mL, intravenous, Oncein imaging potassium chloride ER, 40 mEq, oral, Q2H PRN sodium chloride 0.9%, 0.5-20 mL, intra-catheter, PRN sodium chloride 0.9%, 10 mL, intra-catheter, Once PRN sodium chloride 0.9%, 30 mL/hr, intravenous, Continuous PRN sodium phosphate - potassium phosphate, 500 mg, oral, Daily PRN sodium chloride 0.9%, 30 mL/hr, Last Rate: 30 mL/hr (08/28/23 1333) Vitals Most Recent Vitals: T 36.6 ??C (97.8 ??F), HR 76, BP 121/77, RR 18, SpO2 96 %. 24hr Min/Max: Temp Min: 36.6 ??C (97.8 ??F) Max: 37 ??C (98.6 ??F) Pulse Min: 76 Max: 89 BP Min: 103/60 Max: 121/77 Resp Min: 16 Max: 18 SpO2 Min: 94 % Max: 98 % Intake/Output Summary (Last 24 hours) at 08/30/2023 1821 Last data filed at 08/30/2023 1755 Gross per 24 hour Intake -- Output 675 ml Net -675 ml Physical Exam Gen: No acute distress HEENT: Atraumatic, normocephalic. icteric sclera. Neck: No thyromegaly, no JVD CV: Regular rate and rhythm. BLE edema 2+ LUE 1+ Pulm: Clear to ausculation bilaterally. Abd: Bowel sounds present. Soft, non-tender, mildly distended : Deferred. Skin: Jaundiced Neuro: Alert & oriented x 3. Psych: Appropriate mood and affect. Lines, Drains, Airways Peripheral IV 08/28/23 22 G Anterior;Distal;Left;Upper Arm (Active) Labs/Diagnostic Review CBC: Recent Labs Lab Units 08/30/23 0347 WBC K/cumm 11.3* HEMOGLOBIN g/dL 11.1* HEMATOCRIT % 30.5* MCV fL 101.7* MCH pg 37.0* MCHC g/dL 36.4* RDW CV % 20.6* RDWSD fL 76.2* MPV fL 12.3 NEUTROS ABS K/cumm 5.3 LYMPHS PCT % 37.1 CMP: Recent Labs Lab Units 08/30/23 0347 SODIUM mmol/L 145 POTASSIUM PLASMA mmol/L 4.2 CO2 mmol/L 25 BUN SERUM mg/dL 11 GLUCOSE mg/dL 83 CREATININE mg/dL 0.79* CALCIUM mg/dL 8.3* CHLORIDE mmol/L 115* ALBUMIN g/dL 2.5* AST Units/L 73* ALT Units/L 44 ALK PHOS Units/L 205* BILIRUBIN TOTAL mg/dL 4.7* TOTAL PROTEIN g/dL 4.0* ANIONGAP mmol/L 5 LDH: Recent Labs Lab Units 08/30/23 0347 LACTATE DEHYDROGENASE (LDH) Units/L 468* INR 1.38 Uric Acid:3.4 (Labs above are the most recent result obtained in the last 24 hours unless otherwise specified. For additional labs/trends, see Epic.) I have reviewed the laboratory results. Imaging Review No results found. Assessment/Plan Elevated LFTs Assessment & Plan He has been having abnormal liver enzymes: [...] Bili/LFTs downtrended and have stabilized. CTM. - Colonoscopy tentatively Wednesday. Start CLD tomorrow. - Continue home Ursodiol Gram-negative bacteremia Assessment & Plan Pt reports fevers at home, fatigue, diarrhea, jaundice, abdominal distension and BLE edema. Afebrile and HDS on admission. No lines. Source unclear but suspicion for translocation from enterocolitis.Also potential pna. - CT showed new peribronchovascular [...] liver biopsy as samples already on formalin [facility] Assessment & Plan Pt with progressive BLE edema and ascites over past few weeks. Transaminitis and hyperbilirubinemia. Albumin 3.1. Unclear etiology. - Hepatology consulted. Do not think this is related to liver disease. Liver bx pending. - UA without proteinuria. - TTE with bubbles fairly unremarkable. EF 62%, diastolic function normal, no significant valve disease. - BLE dopplers negative for acute DVT. - Procedure team evaluated patient for paracentesis 08/27 but not enough fluid - Diuretics discontinued per liver's recommendations. Discussed today and ok to restart. Restarted lasix 60 IV BID. Consider adding spironolactone. 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 - Pt due for IVIg History of liver transplant (CMS/HCC) (HCC) Assessment & Plan Pt with history of cirrhosis 2/2 autoimmune hepatitis s/p liver transplant (03/2019). 08/07 Liver transplant doppler showed patent arterial, portal and hepatic venous systems. No thrombosis. - Increased tacrolimus dose at 0.5 mg every other day -> daily. Daily tacro levels. 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 Recentresistance panel shows maribavir and ganciclovir resistance. CMV PCR stable 2890. - Transplant ID following. Started foscarnet and valganciclovir (08/24- ). - Repeat CMV PCR pending. Touch base with ID regarding treatment duration once results are back. Acute superficial DVT of left upper extremity Assessment & Plan - Asymmetric LUE edema. Doppler positive for acute superficial VTE Hypocalcemia and hypomagnesemia Assessment & Plan Likely 2/2 foscarnet. Per report, pt with tingling sensation on LUE and neck. Trop negative and EKGno signs of ischemia. Patient clarified numbness around mouth and bilateral hands most likely symptomatic hypocalcemia. - Received repletion for mg. Started mg-ox 400 q12 hrs. - Continue IV Ca gluc prn as needed. CTM Ca and replete as needed. - CTM Ca, K, Mg and phos and replete as needed Rhinovirus Assessment & Plan Pt with mild shortness of breath and productive cough. RVP + rhinovirus. Doing well on RA - Supportive care Macrocytic anemia Assessment & Plan - B12 WNL. Folate pending. Eustachian tube dysfunction, bilateral Assessment & Plan status post endoscopic sinus surgery (bilateral maxillary antrostomy, total ethmoidectomy, frontal sinusotomy, and sphenoidotomy) and septoplasty on 08/28/2022 for chronic rhinosinusitis and recurrent acute exacerbations. Idiopathic thrombocytopenic purpura (HCC) Assessment & Plan s/p splenectomy in 2012. Platelets wnl now. Code status : Full Code Diet : Adult Diet Regular PT/OT Dispo Rec : / Supplementary Attestation The total encounter time on this service date was 60 minutes which was spent performing a [id number] encounter and personally completing the provider-level activities documented in the note. This includes time spent prior to the visit and after the visit in direct care of the patient. This time does not include time spent in any separately reportable services. Case discussed with oncologist attending Dr Gillespie and records supervisor attending Dr Bautista. Cause of hyperbilirubinemia, transaminitis and anasarca unclear. Liver and RP LN biopsy pending. Karena Verdugo MD * Karena Mak MD - 08/29/2023 1:19 PM CDT Oncology Daily Progress Note Division of Hospital Medicine Name: Beka Lares : 1995 Today's Date: August 29, 2023 Age: 28 y.o. male Admission: 08/23/2023 Bed: [id number] LOS: 6 days Subjective Chief complaint: CMV viremia, GNB bacteremia, hyperbilirubinemia / transaminitis, concern for transplant rejection or PTLD recurrence Interval History No acute events overnight. No new complaints. Bili and LFTs downtrending. Liver biopsy path resultspending. Plan to follow up CMV PCR today. Colonoscopy next week pending availability. Objective Scheduled Meds PRN Meds Infusions budesonide, 0.5 mg, nebulization, Daily (RT) cefTRIAXone, 2,000 mg, intravenous, Q24H PIPPA enoxaparin, 40 mg, subcutaneous, Daily-2100 foscarnet, 60 mg/kg, intravenous, Q8H PIPPA magnesium oxide, 400 mg, oral, BID metroNIDAZOLE, 500 mg, oral, TID potassium chloride ER, 20 mEq, oral, Daily sodium chloride 0.9%, 500 mL, intravenous, Q8H PIPPA sodium chloride 0.9%, 0.5-20 mL, intra-catheter, Q8H PIPPA sodium phosphate - potassium phosphate, 250 mg, oral, BID with meals (bkfst, dinner) tacrolimus, 0.5 mg, oral, Daily ursodioL, 600 mg, oral, Daily with dinner valGANciclovir, 900 mg, oral, BID acetaminophen, 650 mg, oral, Q6H PRN sodium chloride 0.9%, 30 mL, intravenous, PRN heparin flush (porcine), 2-5 mL, intra-catheter, PRN heparin flush (porcine), 5 mL, intra-catheter, Once PRN magnesium sulfate, 4 g, intravenous, Q4H PRN magnesium sulfate, 6 g, intravenous, Q4H PRN ondansetron, 8 mg, oral, Q8H PRN OR ondansetron, 8 mg, intravenous, Q8H PRN perflutren protein-a (OPTISON) 3 mL in sodium chloride 0.9% 8 mL syringe, 1-8 mL, intravenous, Oncein imaging potassium chloride ER, 40 mEq, oral, Q2H PRN sodium chloride 0.9%, 0.5-20 mL, intra-catheter, PRN sodium chloride 0.9%, 10 mL, intra-catheter, Once PRN sodium chloride 0.9%, 30 mL/hr, intravenous, Continuous PRN sodium phosphate - potassium phosphate, 500 mg, oral, Daily PRN sodium chloride 0.9%, 30 mL/hr, Last Rate: 30 mL/hr (08/28/23 1333) Vitals Most Recent Vitals: T 36.8 ??C (98.2 ??F), HR 78, BP 119/61, RR 22, SpO2 97 %. 24hr Min/Max: Temp Min: 36.8 ??C (98.2 ??F) Max: 36.8 ??C (98.2 ??F) Pulse Min: 78 Max: 87 BP Min: 110/62 Max: 119/61 Resp Min: 17 Max: 22 SpO2 Min: 94 % Max: 97 % Intake/Output Summary (Last 24 hours) at 08/29/2023 1325 Last data filed at 08/29/2023 0516 Gross per 24 hour Intake 1085.49 ml Output 1800 ml Net -714.51 ml Physical Exam Gen: No acute distress HEENT: Atraumatic, normocephalic. icteric sclera. Neck: No thyromegaly, no JVD CV: Regular rate and rhythm. BLE edema 1+, improved. LUE 1+, no RUE edema. Pulm: Clear to ausculation bilaterally. Abd: Bowel sounds present. Soft, non-tender, mildly distended : Deferred. Skin: Jaundiced Neuro: Alert & oriented x 3. Psych: Appropriate mood and affect. Lines, Drains, Airways Peripheral IV 08/28/23 22 G Anterior;Distal;Left;Upper Arm (Active) Labs/Diagnostic Review CBC: Recent Labs Lab Units 08/29/23 0310 WBC K/cumm 11.3* HEMOGLOBIN g/dL 10.9* HEMATOCRIT % 29.9* MCV fL 101.7* MCH pg 37.1* MCHC g/dL 36.5* RDW CV % 20.0* RDWSD fL 73.0* MPV fL 12.2 NEUTROS ABS K/cumm 4.1 LYMPHS PCT % 41.8 CMP: Recent Labs Lab Units 08/29/23 0310 SODIUM mmol/L 144 POTASSIUM PLASMA mmol/L 3.8 CO2 mmol/L 25 BUN SERUM mg/dL 10 GLUCOSE mg/dL 77 CREATININE mg/dL 0.72* CALCIUM mg/dL 7.9* CHLORIDE mmol/L 112* ALBUMIN g/dL 2.5* AST Units/L 71* ALT Units/L 47 ALK PHOS Units/L 216* BILIRUBIN TOTAL mg/dL 4.5* TOTAL PROTEIN g/dL 4.0* ANIONGAP mmol/L 7 LDH: Recent Labs Lab Units 08/26/23 0304 LACTATE DEHYDROGENASE (LDH) Units/L 502* INR - Uric Acid:- (Labs above are the most recent result obtained in the last 24 hours unless otherwise specified. For additional labs/trends, see Epic.) I have reviewed the laboratory results. Imaging Review No results found. Assessment/Plan Elevated LFTs Assessment & Plan He has been having abnormal liver enzymes: [...] liver biopsy 08/27. Path pending. - Bili/LFTs downtrending. CTM. - Colonoscopy this admission pending schedule availability - Continue home Ursodiol Gram-negative bacteremia Assessment & Plan Pt reports fevers at home, fatigue, diarrhea, jaundice, abdominal distension and BLE edema. Afebrile and HDS on admission. No lines. Source unclear but suspicion for translocation from enterocolitis.Also potential pna. - CT showed new peribronchovascular [...] liver biopsy as samples already on formalin [facility] Assessment & Plan Pt with progressive BLE edema and ascites over past few weeks. Transaminitis and hyperbilirubinemia. Albumin 3.1. Unclear etiology. - Hepatology consulted. Unable to attribute edema to liver dysfunction at this time. - TTE with bubbles fairly unremarkable. EF 62%, diastolic function normal, no significant valve disease. - BLE dopplers negative for acute DVT. 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 08/07 Liver transplant doppler showed patent arterial, portal and hepatic venous systems. No thrombosis. - Increased tacrolimus dose at 0.5 mg every other day -> daily. Daily tacro levels. 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 Recentresistance panel shows maribavir and ganciclovir resistance. CMV PCR stable 2890. - Transplant ID following. Started foscarnet and valganciclovir (08/24- ). - Recheck CMV PCR tonight Acute superficial DVT of left upper extremity Assessment & Plan - Asymmetric LUE edema. Doppler positive for acute superficial VTE Hypocalcemia and hypomagnesemia Assessment & Plan Likely 2/2 foscarnet. Per report, pt with tingling sensation on LUE and neck. Trop negative and EKGno signs of ischemia. Patient clarified numbness around mouth and bilateral hands most likely symptomatic hypocalcemia. - Received repletion for mg. Started mg-ox 400 q12 hrs. - Continue IV Ca gluc prn as needed. CTM Ca and replete as needed. - CTM Ca, K, Mg and phos and replete as needed Rhinovirus Assessment & Plan Pt with mild shortness of breath and productive cough. RVP + rhinovirus. Doing well on RA - Supportive care Macrocytic anemia Assessment & Plan - B12 WNL. Folate pending. Eustachian tube dysfunction, bilateral Assessment & Plan status post endoscopic sinus surgery (bilateral maxillary antrostomy, total ethmoidectomy, frontal sinusotomy, and sphenoidotomy) and septoplasty on 08/28/2022 for chronic rhinosinusitis and recurrent acute exacerbations. Idiopathic thrombocytopenic purpura (HCC) Assessment & Plan s/p splenectomy in 2012. Platelets wnl now. Code status : Full Code Diet : Adult Diet Regular PT/OT Dispo Rec : / Supplementary Attestation The total encounter time on this service date was 40 minutes which was spent performing a [id number] encounter and personally completing the provider-level activities documented in the note. This includes time spent prior to the visit and after the visit in direct care of the patient. This time does not include time spent in any separately reportable services. Karena Verdugo MD * Karena Mak MD - 08/28/2023 1:39 PM CDT Oncology Daily Progress Note Division of Hospital Medicine Name: Beka Contreras Simone : 1995 Today's Date: August 28, 2023 Age: 28 y.o. male Admission: 08/23/2023 Bed: [id number] LOS: 5 days Subjective Chief complaint: CMV viremia, GNB bacteremia, hyperbilirubinemia / transaminitis, concern for transplant rejection or PTLD recurrence Interval History No acute events overnight. Labs improved. Underwent EUS with liver biopsy yesterday. Main complaints is worsening ascites and BLE edema. Team unable to perform paracentesis yesterday as not enough fluid on US. Objective Scheduled Meds PRN Meds Infusions budesonide, 0.5 mg, nebulization, Daily (RT) calcium gluconate, 3 g, intravenous, Once cefTRIAXone, 2,000 mg, intravenous, Q24H PIPPA enoxaparin, 40 mg, subcutaneous, Daily-2100 foscarnet, 60 mg/kg, intravenous, Q8H PIPPA furosemide, 60 mg, intravenous, BID DIURETIC magnesium oxide, 400 mg, oral, BID metroNIDAZOLE, 500 mg, oral, TID [START ON 08/29/2023] potassium chloride ER, 20 mEq, oral, Daily potassium chloride ER, 40 mEq, oral, Once sodium chloride 0.9%, 500 mL, intravenous, Q8H PIPPA sodium chloride 0.9%, 0.5-20 mL, intra-catheter, Q8H PIPPA sodium phosphate - potassium phosphate, 250 mg, oral, BID with meals (bkfst, dinner) tacrolimus, 0.5 mg, oral, Daily ursodioL, 600 mg, oral, Daily with dinner valGANciclovir, 900 mg, oral, BID acetaminophen, 650 mg, oral, Q6H PRN sodium chloride 0.9%, 30 mL, intravenous, PRN heparin flush (porcine), 2-5 mL, intra-catheter, PRN heparin flush (porcine), 5 mL, intra-catheter, Once PRN magnesium sulfate, 4 g, intravenous, Q4H PRN magnesium sulfate, 6 g, intravenous, Q4H PRN ondansetron, 8 mg, oral, Q8H PRN OR ondansetron, 8 mg, intravenous, Q8H PRN perflutren protein-a (OPTISON) 3 mL in sodium chloride 0.9% 8 mL syringe, 1-8 mL, intravenous, Oncein imaging potassium chloride ER, 40 mEq, oral, Q2H PRN sodium chloride 0.9%, 0.5-20 mL, intra-catheter, PRN sodium chloride 0.9%, 10 mL, intra-catheter, Once PRN sodium chloride 0.9%, 30 mL/hr, intravenous, Continuous PRN sodium phosphate - potassium phosphate, 500 mg, oral, Daily PRN sodium chloride 0.9%, 30 mL/hr, Last Rate: 30 mL/hr (08/27/23 1327) Vitals Most Recent Vitals: T 37.1 ??C (98.7 ??F), HR 93, BP 116/61, RR 20, SpO2 96 %. 24hr Min/Max: Temp Min: 36.3 ??C (97.3 ??F) Max: 37.7 ??C (99.9 ??F) Pulse Min: 74 Max: 95 BP Min: 102/57 Max: 133/118 Resp Min: 18 Max: 27 SpO2 Min: 91 % Max: 97 % Intake/Output Summary (Last 24 hours) at 08/28/2023 1353 Last data filed at 08/28/2023 1329 Gross per 24 hour Intake 5214.46 ml Output 1675 ml Net 3539.46 ml Physical Exam Gen: No acute distress HEENT: Atraumatic, normocephalic. icteric sclera. Neck: No thyromegaly, no JVD CV: Regular rate and rhythm. BLE edema 1 to 2+. LUE 1+, no RUE edema. Pulm: Clear to ausculation bilaterally. Abd: Bowel sounds present. Soft, non-tender, mildly-mod distended (more than yesterday) : Deferred. Skin: Jaundiced Neuro: Alert & oriented x 3. Psych: Appropriate mood and affect. Lines, Drains, Airways Peripheral IV 08/28/23 22 G Anterior;Distal;Left;Upper Arm (Active) Labs/Diagnostic Review CBC: Recent Labs Lab Units 08/28/23 0300 WBC K/cumm 9.9 HEMOGLOBIN g/dL 10.2* HEMATOCRIT % 28.0* MCV fL 102.2* MCH pg 37.2* MCHC g/dL 36.4* RDW CV % 19.5* RDWSD fL 70.5* MPV fL 12.0 NEUTROS ABS K/cumm 3.3 LYMPHS PCT % 39.3 CMP: Recent Labs Lab Units 08/28/23 0300 SODIUM mmol/L 141 POTASSIUM PLASMA mmol/L 3.5 CO2 mmol/L 24 BUN SERUM mg/dL 9 GLUCOSE mg/dL 85 CREATININE mg/dL 0.72* CALCIUM mg/dL 6.9* CHLORIDE mmol/L 110 ALBUMIN g/dL 2.5* AST Units/L 78* ALT Units/L 51 ALK PHOS Units/L 227* BILIRUBIN TOTAL mg/dL 4.8* TOTAL PROTEIN g/dL 4.2* ANIONGAP mmol/L 7 LDH: Recent Labs Lab Units 08/26/23 0304 LACTATE DEHYDROGENASE (LDH) Units/L 502* INR - Uric Acid:- (Labs above are the most recent result obtained in the last 24 hours unless otherwise specified. For additional labs/trends, see Epic.) I have reviewed the laboratory results. Imaging Review No results found. Assessment/Plan Elevated LFTs Assessment & Plan He has been having abnormal liver enzymes: [...] with liver biopsy 08/27. Path pending. - Colonoscopy this admission pending schedule availability - Continue home Ursodiol Gram-negative bacteremia Assessment & Plan Pt reports fevers at home, fatigue, diarrhea, jaundice, abdominal distension and BLE edema. Afebrile and HDS on admission. No lines. Source unclear but suspicion for translocation from enterocolitis.Also potential pna. - CT showed new peribronchovascular [...] liver biopsy as samples already on formalin [facility] Assessment & Plan Pt with progressive BLE edema and ascites over past few weeks. Transaminitis and hyperbilirubinemia. Albumin 3.1. Unclear etiology. - Hepatology consulted. Unable to attribute edema to liver dysfunction at this time. - TTE with bubbles fairly unremarkable. EF 62%, diastolic function normal, no significant valve disease. - BLE dopplers negative for acute DVT. 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 08/07 Liver transplant doppler showed patent arterial, portal and hepatic venous systems. No thrombosis. - Increased tacrolimus dose at 0.5 mg every other day -> daily. Daily tacro levels. 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 Recentresistance panel shows maribavir and ganciclovir resistance. CMV PCR stable 2890. - Transplant ID following. Started foscarnet and valganciclovir (08/24- ). - Recheck CMV PCR in a few days to monitor response Acute superficial DVT of left upper extremity Assessment & Plan - Asymmetric LUE edema. Doppler positive for acute superficial VTE Hypocalcemia and hypomagnesemia Assessment & Plan Likely 2/2 foscarnet. Per report, pt with tingling sensation on LUE and neck. Trop negative and EKGno signs of ischemia. Patient clarified numbness around mouth and bilateral hands most likely symptomatic hypocalcemia. - Received repletion for mg. Started mg-ox 400 q12 hrs. - Continue IV Ca gluc prn as needed. CTM Ca and replete as needed. - CTM Ca, K, Mg and phos and replete as needed Rhinovirus Assessment & Plan Pt with mild shortness of breath and productive cough. RVP + rhinovirus. Doing well on RA - Supportive care Macrocytic anemia Assessment & Plan - B12 WNL. Folate pending. Eustachian tube dysfunction, bilateral Assessment & Plan status post endoscopic sinus surgery (bilateral maxillary antrostomy, total ethmoidectomy, frontal sinusotomy, and sphenoidotomy) and septoplasty on 08/28/2022 for chronic rhinosinusitis and recurrent acute exacerbations. Idiopathic thrombocytopenic purpura (HCC) Assessment & Plan s/p splenectomy in 2012. Platelets wnl now. Code status : Full Code Diet : Adult Diet Regular PT/OT Dispo Rec : / Supplementary Attestation The total encounter time on this service date was 45 minutes which was spent performing a [id number] encounter and personally completing the provider-level activities documented in the note. This includes time spent prior to the visit and after the visit in direct care of the patient. This time does not include time spent in any separately reportable services. Karena Verdugo MD * Karena Mak MD - 08/27/2023 8:08 AM CDT Oncology Daily Progress Note Division of Hospital Medicine Name: Beka Lares : 1995 Today's Date: August 27, 2023 Age: 28 y.o. male Admission: 08/23/2023 Bed: [id number] LOS: 4 days Subjective Chief complaint: CMV viremia, GNB bacteremia, hyperbilirubinemia / transaminitis, concern for transplant rejection or PTLD recurrence Interval History - Per cross-cover report, pt experienced tingling and discomfort in LUE to neck. Trop negative. Pt clarified he actually experienced tingling and numbness around mouth and bilateral hands. Hypocalcemia and hypomagnesemia noted. - Bilirubin, alk phos, AST and ALT fairly unchanged. Edema slowly improving. - Afebrile. HDS. Bcx cleared. - Plan for EUS with liver +/- LN biopsy today. Objective Scheduled Meds PRN Meds Infusions budesonide, 0.5 mg, nebulization, Daily (RT) cefTRIAXone, 2,000 mg, intravenous, Q24H PIPPA enoxaparin, 40 mg, subcutaneous, Daily-2100 foscarnet, 60 mg/kg, intravenous, Q8H PIPPA furosemide, 60 mg, intravenous, Daily magnesium oxide, 400 mg, oral, BID metroNIDAZOLE, 500 mg, oral, TID sodium chloride 0.9%, 500 mL, intravenous, Q8H PIPPA sodium chloride 0.9%, 0.5-20 mL, intra-catheter, Q8H PIPPA tacrolimus, 0.5 mg, oral, Daily ursodioL, 600 mg, oral, Daily with dinner valGANciclovir, 900 mg, oral, BID acetaminophen, 650 mg, oral, Q6H PRN sodium chloride 0.9%, 30 mL, intravenous, PRN heparin flush (porcine), 2-5 mL, intra-catheter, PRN heparin flush (porcine), 5 mL, intra-catheter, Once PRN magnesium sulfate, 4 g, intravenous, Q4H PRN magnesium sulfate, 6 g, intravenous, Q4H PRN ondansetron, 8 mg, oral, Q8H PRN OR ondansetron, 8 mg, intravenous, Q8H PRN perflutren protein-a (OPTISON) 3 mL in sodium chloride 0.9% 8 mL syringe, 1-8 mL, intravenous, Oncein imaging potassium chloride ER, 40 mEq, oral, Q2H PRN sodium chloride 0.9%, 0.5-20 mL, intra-catheter, PRN sodium chloride 0.9%, 10 mL, intra-catheter, Once PRN sodium chloride 0.9%, 30 mL/hr, intravenous, Continuous PRN sodium phosphate - potassium phosphate, 500 mg, oral, Daily PRN sodium chloride 0.9%, 30 mL/hr, Last Rate: 30 mL/hr (08/24/23 0555) Vitals Most Recent Vitals: T 36.8 ??C (98.3 ??F), HR 90, BP 111/54, RR 16, SpO2 94 %. 24hr Min/Max: Temp Min: 36.6 ??C (97.8 ??F) Max: 37.2 ??C (99 ??F) Pulse Min: 87 Max: 94 BP Min: 111/54 Max: 121/60 Resp Min: 16 Max: 16 SpO2 Min: 94 % Max: 97 % Intake/Output Summary (Last 24 hours) at 08/27/2023 1212 Last data filed at 08/27/2023 1155 Gross per 24 hour Intake 791.3 ml Output 4025 ml Net -3233.7 ml Physical Exam Gen: No acute distress HEENT: Atraumatic, normocephalic. icteric sclera. Neck: No thyromegaly, no JVD CV: Regular rate and rhythm. BLE edema 1 to 2+. LUE 1+, no RUE edema. Pulm: Clear to ausculation bilaterally. Abd: Bowel sounds present. Soft, non-tender, mildly distended : Deferred. Skin: Jaundiced Neuro: Alert & oriented x 3. Psych: Appropriate mood and affect. Lines, Drains, Airways Peripheral IV 08/27/23 22 G Anterior;Proximal;Right Forearm (Active) Labs/Diagnostic Review CBC: Recent Labs Lab Units 08/27/23 0331 WBC K/cumm 12.5* HEMOGLOBIN g/dL 10.8* HEMATOCRIT % 29.3* MCV fL 101.4* MCH pg 37.4* MCHC g/dL 36.9* RDW CV % 18.7* RDWSD fL 68.2* MPV fL 12.0 NEUTROS ABS K/cumm 5.4 LYMPHS PCT % 33.7 CMP: Recent Labs Lab Units 08/27/23 0331 SODIUM mmol/L 140 POTASSIUM PLASMA mmol/L 3.8 CO2 mmol/L 23 BUN SERUM mg/dL 10 GLUCOSE mg/dL 99 CREATININE mg/dL 0.76* CALCIUM mg/dL 6.9* CHLORIDE mmol/L 109 ALBUMIN g/dL 2.7* AST Units/L 82* ALT Units/L 53 ALK PHOS Units/L 229* BILIRUBIN TOTAL mg/dL 5.5* TOTAL PROTEIN g/dL 4.3* ANIONGAP mmol/L 8 LDH: Recent Labs Lab Units 08/26/23 0304 LACTATE DEHYDROGENASE (LDH) Units/L 502* INR - Uric Acid:2.2 (Labs above are the most recent result obtained in the last 24 hours unless otherwise specified. For additional labs/trends, see Epic.) I have reviewed the laboratory results. Imaging Review MRI Abdomen MRCP W WO Contrast Incl 3D Result Date: 08/26/2023 1. Stable postsurgical changes of hepatic transplantation without biliary ductal dilation or focal hepatic observation. Hepatic transplant vascular anatomy appears grossly normal but is better characterized on recent CT. 2. Stable diffuse lower thoracic, and abdominal adenopathy in keeping with known lymphoproliferative disorder. 3. Findings suspicious for bilateral pyelonephritis. Correlation with urinalysis is recommended. No perinephric collection or hydronephrosis. 4. Mildly increased smallright and trace left effusions with moderate ascites and diffuse body wall edema in keeping with aria sarca. 5. Right lung opacities are better characterized on prior CT likely representing multifocal pneumonia. 6. Right colon and terminal ileum enterocolitis also better characterized on recent priorCT. Dictated by: Jerrod Ellis M.D. The radiology attending physician has personally reviewed this study, and had reviewed and/or edited this written report and agrees with it. Electronically signed by: Henri Rivera M.D. Assessment/Plan Elevated LFTs Assessment & Plan He has been having abnormal liver enzymes: [...] acute liver transplant rejection. Suspect colitis. - Tentative plan for EUS with liver +/- LN biopsy today - Colonoscopy this admission pending schedule availability - Continue home Ursodiol Gram-negative bacteremia Assessment & Plan Pt reports fevers at home, fatigue, diarrhea, jaundice, abdominal distension and BLE edema. Afebrile and HDS on admission. No lines. Source unclear but suspicion for translocation from enterocolitis.Also potential pna. - CT showed new peribronchovascular [...] 08/26) -> ceftriaxone and flagyl (08/26- ). [facility] Assessment & Plan Pt with progressive BLE edema and ascites over past few weeks. Transaminitis and hyperbilirubinemia. Albumin 3.1. Unclear etiology. - Hepatology consulted. Unable to attribute edema to liver dysfunction at this time. - TTE with bubbles fairly unremarkable. EF 62%, diastolic function normal, no significant valve disease. - BLE dopplers negative for acute DVT. - Asymmetric LUE edema. Doppler ordered. 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 - Medical oncology following. Seen by Dr Gillespie during this admission. 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 08/07 Liver transplant doppler showed patent arterial, portal and hepatic venous systems. No thrombosis. - Increase tacrolimus dose at 0.5 mg every other day -> daily. Daily tacro levels. 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 Recentresistance panel shows maribavir and ganciclovir resistance. CMV PCR stable 2890. - Transplant ID following. Started foscarnet and valganciclovir (08/24- ). - Recheck CMV PCR in a few days to monitor response Hypocalcemia and hypomagnesemia Assessment & Plan Likely 2/2 foscarnet. Per report, pt with tingling sensation on LUE and neck. Trop negative and EKGno signs of ischemia. Patient clarified numbness around mouth and bilateral hands most likely symptomatic hypocalcemia. - Received repletion for mg. Start mg-ox 400 q12 hrs. - Will give IV Ca gluc 2g. CTM Ca and replete as needed. - CTM Ca, K, Mg and phos and replete as needed Rhinovirus Assessment & Plan Pt with mild shortness of breath and productive cough. RVP + rhinovirus. Doing well on RA - Supportive care Macrocytic anemia Assessment & Plan - B12 WNL. Folate pending. Eustachian tube dysfunction, bilateral Assessment & Plan status post endoscopic sinus surgery (bilateral maxillary antrostomy, total ethmoidectomy, frontal sinusotomy, and sphenoidotomy) and septoplasty on 08/28/2022 for chronic rhinosinusitis and recurrent acute exacerbations. Idiopathic thrombocytopenic purpura (HCC) Assessment & Plan s/p splenectomy in 2013. Platelets wnl now. Code status : Full Code Diet : NPO Diet PT/OT Dispo Rec : / Supplementary Attestation The total encounter time on this service date was 60 minutes which was spent performing a [id number] encounter and personally completing the provider-level activities documented in the note. This includes time spent prior to the visit and after the visit in direct care of the patient. This time does not include time spent in any separately reportable services. Karena Verdugo MD * Karena Mak MD - 08/26/2023 8:30 AM CDT Oncology Daily Progress Note Division of Hospital Medicine Name: Beka Lares : 1995 Today's Date: August 26, 2023 Age: 28 y.o. male Admission: 08/23/2023 Bed: [id number] LOS: 3 days Subjective Chief complaint: CMV viremia, GNB bacteremia, hyperbilirubinemia / transaminitis, concern for transplant rejection or PTLD recurrence Interval History - Bilirubin and Alk phos stable. AST/ALT slowly downtrending. Edema unchanged. Dopplers negative for acute DVT. - MRI/MRCP showed stable postsurgical changes of hepatic transplantation without biliary ductal dilation or focal hepatic abnormality. A/P CT right colon and terminal ileum enterocolitis. - Bcx remain NGTD. - RVP + rhinovirus. - Tentative plan for c-scope tomorrow. Objective Scheduled Meds PRN Meds Infusions budesonide, 0.5 mg, nebulization, Daily (RT) cefTRIAXone, 2,000 mg, intravenous, Q24H PIPPA enoxaparin, 40 mg, subcutaneous, Daily-2100 foscarnet, 60 mg/kg, intravenous, Q8H PIPPA metroNIDAZOLE, 500 mg, oral, TID polyethylene glycol, 2,000 mL, oral, BID sodium chloride 0.9%, 500 mL, intravenous, Q8H PIPPA sodium chloride 0.9%, 0.5-20 mL, intra-catheter, Q8H PIPPA tacrolimus, 0.5 mg, oral, Every other day ursodioL, 600 mg, oral, Daily with dinner valGANciclovir, 900 mg, oral, BID acetaminophen, 650 mg, oral, Q6H PRN sodium chloride 0.9%, 30 mL, intravenous, PRN heparin flush (porcine), 2-5 mL, intra-catheter, PRN heparin flush (porcine), 5 mL, intra-catheter, Once PRN magnesium sulfate, 4 g, intravenous, Q4H PRN magnesium sulfate, 6 g, intravenous, Q4H PRN ondansetron, 8 mg, oral, Q8H PRN OR ondansetron, 8 mg, intravenous, Q8H PRN perflutren protein-a (OPTISON) 3 mL in sodium chloride 0.9% 8 mL syringe, 1-8 mL, intravenous, Oncein imaging potassium chloride ER, 40 mEq, oral, Q2H PRN sodium chloride 0.9%, 0.5-20 mL, intra-catheter, PRN sodium chloride 0.9%, 10 mL, intra-catheter, Once PRN sodium chloride 0.9%, 30 mL/hr, intravenous, Continuous PRN sodium phosphate - potassium phosphate, 500 mg, oral, Daily PRN sodium chloride 0.9%, 30 mL/hr, Last Rate: 30 mL/hr (08/24/23 0555) Vitals Most Recent Vitals: T 36.6 ??C (97.8 ??F), HR 87, BP 119/70, RR 16, SpO2 97 %. 24hr Min/Max: Temp Min: 36.6 ??C (97.8 ??F) Max: 37 ??C (98.6 ??F) Pulse Min: 87 Max: 91 BP Min: 110/64 Max: 119/70 Resp Min: 16 Max: 16 SpO2 Min: 95 % Max: 97 % Intake/Output Summary (Last 24 hours) at 08/26/2023 1701 Last data filed at 08/26/2023 1600 Gross per 24 hour Intake 5905 ml Output 4265 ml Net 1640 ml Physical Exam Gen: No acute distress HEENT: Atraumatic, normocephalic. icteric sclera. Neck: No thyromegaly, no JVD CV: Regular rate and rhythm. BLE edema 1 to 2+. LUE 1-2+, no RUE edema. Pulm: Clear to ausculation bilaterally. Abd: Bowel sounds present. Soft, non-tender, moderately distended : Deferred. Skin: Jaundiced Neuro: Alert & oriented x 3. Psych: Appropriate mood and affect. Lines, Drains, Airways Peripheral IV 08/23/23 20 G Left Antecubital (Active) Labs/Diagnostic Review CBC: Recent Labs Lab Units 08/26/23 0304 WBC K/cumm 13.0* HEMOGLOBIN g/dL 10.3* HEMATOCRIT % 28.3* MCV fL 100.7* MCH pg 36.7* MCHC g/dL 36.4* RDW CV % 18.7* RDWSD fL 69.0* MPV fL 11.5 NEUTROS ABS K/cumm 5.5 LYMPHS PCT % 33.6 CMP: Recent Labs Lab Units 08/26/23 0304 SODIUM mmol/L 141 POTASSIUM PLASMA mmol/L 3.6 CO2 mmol/L 22 BUN SERUM mg/dL 10 GLUCOSE mg/dL 79 CREATININE mg/dL 0.86 CALCIUM mg/dL 7.3* CHLORIDE mmol/L 112* ALBUMIN g/dL 2.6* AST Units/L 72* ALT Units/L 51 ALK PHOS Units/L 213* BILIRUBIN TOTAL mg/dL 5.3* TOTAL PROTEIN g/dL 4.3* ANIONGAP mmol/L 7 LDH: Recent Labs Lab Units 08/26/23 0304 LACTATE DEHYDROGENASE (LDH) Units/L 502* INR - Uric Acid:2.2 (Labs above are the most recent result obtained in the last 24 hours unless otherwise specified. For additional labs/trends, see Epic.) I have reviewed the laboratory results. Imaging Review MRI Abdomen MRCP W WO Contrast Incl 3D Result Date: 08/26/2023 1. Stable postsurgical changes of hepatic transplantation without biliary ductal dilation or focal hepatic observation. Hepatic transplant vascular anatomy appears grossly normal but is better characterized on recent CT. 2. Stable diffuse lower thoracic, and abdominal adenopathy in keeping with known lymphoproliferative disorder. 3. Findings suspicious for bilateral pyelonephritis. Correlation with urinalysis is recommended. No perinephric collection or hydronephrosis. 4. Mildly increased smallright and trace left effusions with moderate ascites and diffuse body wall edema in keeping with aria sarca. 5. Right lung opacities are better characterized on prior CT likely representing multifocal pneumonia. 6. Right colon and terminal ileum enterocolitis also better characterized on recent priorCT. Dictated by: Jerrod Ellis M.D. The radiology attending physician has personally reviewed this study, and had reviewed and/or edited this written report and agrees with it. Electronically signed by: Henri Rivera M.D. Assessment/Plan [facility] Assessment & Plan Pt with progressive BLE edema and ascites over past few weeks. Transaminitis and hyperbilirubinemia. Albumin 3.1. Unclear etiology. - Hepatology consulted. Unable to attribute edema to liver dysfunction at this time. - TTE with bubbles fairly unremarkable. EF 62%, diastolic function normal, no significant valve disease. - Schedule lasix IV Elevated LFTs Assessment & Plan He has been having abnormal liver enzymes: [...] biliary ductal dilation or focal hepatic abnormality. A/P CT right colon and terminal ileum enterocolitis. - Hepatology following. Low suspicion for acute liver transplant rejection. Suspect colitis. - Tentative colonoscopy tomorrow. Pending confirmation. - Low threshold for liver biopsy - Continue home Ursodiol - Daily tacro levels Gram-negative bacteremia Assessment & Plan Pt reports fevers at home, fatigue, diarrhea, jaundice, abdominal distension and BLE edema. Afebrile and HDS on admission. No lines. Source unclear but suspicion for translocation from enterocolitis.Also potential pna. - CT showed new peribronchovascular [...] E coli x 2 samples. Bcx 08/24 NGTD and 08/26 in progress - ID following. - D/c vanc (08/23- 08/24). Zozyn (08/23- 08/26) -> ceftriaxone and flagyl (08/26- ). 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 - Medical oncology following. Seen by Dr Gillespie during this admission. 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 08/07 Liver transplant doppler showed patent arterial, portal and hepatic venous systems. No thrombosis. - Continue current tacrolimus dose at 0.5 mg every other day. Daily tacro levels. 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 Recentresistance panel shows maribavir and ganciclovir resistance. CMV PCR stable 2890. - Transplant ID following. Started foscarnet and valganciclovir (08/24- ). - Recheck CMV PCR in a few days to monitor response Macrocytic anemia Assessment & Plan - B12 WNL. Folate pending. Eustachian tube dysfunction, bilateral Assessment & Plan status post endoscopic sinus surgery (bilateral maxillary antrostomy, total ethmoidectomy, frontal sinusotomy, and sphenoidotomy) and septoplasty on 08/28/2022 for chronic rhinosinusitis and recurrent acute exacerbations. Idiopathic thrombocytopenic purpura (HCC) Assessment & Plan s/p splenectomy in 2012. Platelets wnl now. Code status : Full Code Diet : Adult Diet Clear Liquid NPO Diet PT/OT Dispo Rec : / Supplementary Attestation The total encounter time on this service date was 55 minutes which was spent performing a [id number] encounter and personally completing the provider-level activities documented in the note. This includes time spent prior to the visit and after the visit in direct care of the patient. This time does not include time spent in any separately reportable services. Karena Verdugo MD * Kristine Cook RPh - 08/25/2023 12:59 PM CDT Antimicrobial Stewardship Review ASP review-restricted antimicrobial(s): Tom A member of the [facility] antimicrobial stewardship program has reviewed the patient's chart including the above [id number] antimicrobial(s). Criteria for continued use has been met. For questions, contact: Kristine Cook RPh Clinical consideration should be performed prior to any antimicrobial modifications. These recommendations do not represent a formal Infectious Diseases consult. * Karena Mak MD - 08/25/2023 8:15 AM CDT Oncology Daily Progress Note Division of Hospital Medicine Name: Beka Lares : 1995 Today's Date: August 25, 2023 Age: 28 y.o. male Admission: 08/23/2023 Bed: [id number] LOS: 2 days Subjective Chief complaint: CMV viremia, GNB bacteremia, hyperbilirubinemia / transaminitis, concern for transplant rejection or PTLD recurrence Interval History Bilirubin, AST and ALT stable. Alk phos mildly improved. Edema somewhat improved with IV lasix, UOP2.3L. TTE with doppler unremarkable- EF 62%, normal diastolic function, no significant valve disease. Pt evaluated by hepatology. Pending MRI/MRCP. Remain afebrile and HDS. Bcx 08/24 NGTD. Concern for translocation from enterocolitis. Objective Scheduled Meds PRN Meds Infusions budesonide, 0.5 mg, nebulization, Daily (RT) enoxaparin, 40 mg, subcutaneous, Daily-2100 foscarnet, 60 mg/kg, intravenous, Q8H PIPPA piperacillin-tazobactam, 4.5 g, intravenous, Q6H PIPPA sodium chloride 0.9%, 500 mL, intravenous, Q8H PIPPA sodium chloride 0.9%, 0.5-20 mL, intra-catheter, Q8H PIPPA tacrolimus, 0.5 mg, oral, Every other day ursodioL, 600 mg, oral, Daily with dinner valGANciclovir, 900 mg, oral, BID acetaminophen, 650 mg, oral, Q6H PRN sodium chloride 0.9%, 30 mL, intravenous, PRN heparin flush (porcine), 2-5 mL, intra-catheter, PRN heparin flush (porcine), 5 mL, intra-catheter, Once PRN magnesium sulfate, 4 g, intravenous, Q4H PRN magnesium sulfate, 6 g, intravenous, Q4H PRN ondansetron, 8 mg, oral, Q8H PRN OR ondansetron, 8 mg, intravenous, Q8H PRN perflutren protein-a (OPTISON) 3 mL in sodium chloride 0.9% 8 mL syringe, 1-8 mL, intravenous, Oncein imaging potassium chloride ER, 40 mEq, oral, Q2H PRN sodium chloride 0.9%, 0.5-20 mL, intra-catheter, PRN sodium chloride 0.9%, 10 mL, intra-catheter, Once PRN sodium chloride 0.9%, 30 mL/hr, intravenous, Continuous PRN sodium phosphate - potassium phosphate, 500 mg, oral, Daily PRN sodium chloride 0.9%, 30 mL/hr, Last Rate: 30 mL/hr (08/24/23 0555) Vitals Most Recent Vitals: T 36.9 ??C (98.4 ??F), HR 87, BP 107/52, RR 18, SpO2 93 %. 24hr Min/Max: Temp Min: 36.6 ??C (97.9 ??F) Max: 37.4 ??C (99.3 ??F) Pulse Min: 87 Max: 95 BP Min: 107/52 Max: 121/61 Resp Min: 18 Max: 22 SpO2 Min: 93 % Max: 100 % Intake/Output Summary (Last 24 hours) at 08/25/2023 1220 Last data filed at 08/25/2023 1120 Gross per 24 hour Intake 1555 ml Output 2595 ml Net -1040 ml Physical Exam Gen: No acute distress HEENT: Atraumatic, normocephalic. icteric sclera. Neck: No thyromegaly, no JVD CV: Regular rate and rhythm. BLE edema 1+ improved Pulm: Clear to ausculation bilaterally. Abd: Bowel sounds present. Soft, non-tender, moderately distended : Deferred. Skin: Jaundiced Neuro: Alert & oriented x 3. Psych: Appropriate mood and affect. Lines, Drains, Airways Peripheral IV 08/23/23 20 G Left Antecubital (Active) Labs/Diagnostic Review CBC: Recent Labs Lab Units 08/25/23 0533 WBC K/cumm 13.3* HEMOGLOBIN g/dL 10.5* HEMATOCRIT % 28.7* MCV fL 101.4* MCH pg 37.1* MCHC g/dL 36.6* RDW CV % 18.9* RDWSD fL 69.3* MPV fL 12.2 NEUTROS ABS K/cumm 5.1 LYMPHS PCT % 37.6 CMP: Recent Labs Lab Units 08/25/23 0533 SODIUM mmol/L 140 POTASSIUM PLASMA mmol/L 5.1* CO2 mmol/L 21* BUN SERUM mg/dL 10 GLUCOSE mg/dL 83 CREATININE mg/dL 0.84 CALCIUM mg/dL 6.9* CHLORIDE mmol/L 112* ALBUMIN g/dL 2.5* AST Units/L 94* ALT Units/L 57* ALK PHOS Units/L 213* BILIRUBIN TOTAL mg/dL 5.1* TOTAL PROTEIN g/dL 4.2* ANIONGAP mmol/L 7 LDH: Recent Labs Lab Units 08/24/23 0331 LACTATE DEHYDROGENASE (LDH) Units/L 527* INR 1.51 Uric Acid:3.5 (Labs above are the most recent result obtained in the last 24 hours unless otherwise specified. For additional labs/trends, see Epic.) I have reviewed the laboratory results. Imaging Review CT Neck Soft Tissue W Contrast Result Date: 08/23/2023 Redemonstrated findings of multistation diffuse cervical lymphadenopathy 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 Please refer to concurrent CT chest for dedicated chest findings. Dictated by: Morgan Corralse MD The radiology attending physician has personally reviewed this study, and had reviewed and/or edited this written report and agrees with it. Electronically signed by: Karli Blount M.D. CT Chest Abdomen Pelvis W Contrast Result Date: 08/23/2023 1. Extensive lymphadenopathy above and below the diaphragm compatible with known post-transplant lymphoproliferative disorder. While a right axillary and left inguinal lymph node have increased in size from 07/09/2022, the majority of lymph nodes are either stable or slightly decreased in size to prior. 2. New peribronchovascular opacities within the right lung which are favored to be infectious/inflammatory, possibly related to organizing pneumonia. 3. New wall thickening of the ascending colon and terminal ilium compatible with enterocolitis which is nonspecific but may be infectious or inflammatory. 4. Stable postsurgical changes of liver transplant. Electronically signed by: Jadyn Thrasher M.D. Assessment/Plan [facility] Assessment & Plan Pt with progressive BLE edema and ascites over past few weeks. Transaminitis and hyperbilirubinemia. Albumin 3.1. Unclear etiology. - Hepatology consulted. Unable to attribute edema to liver dysfunction at this time. - TTE with bubbles fairly unremarkable. EF 62%, diastolic function normal, no significant valve disease. - Lasix prn Elevated LFTs Assessment & Plan He has been having abnormal liver enzymes: [...] and superior mesenteric veins are patent. - Hepatology following. Low suspicion for acute liver transplant rejection. Suspect colitis. - Pending MRI/MRCP to evaluate biliary anatomy and rule our liver abscess. If unremarkable, plan for colonoscopy to evaluate right colon. Cannot rule out infiltrative disease / CMV so lowthreshold for liver biopsy. - Continue home Ursodiol - Daily tacro levels Gram-negative bacteremia Assessment & Plan Pt reports fevers at home, fatigue, diarrhea, jaundice, abdominal distension and BLE edema. Afebrile and HDS on admission. No lines. Source unclear but suspicion for translocation from enterocolitis. - CT showed new peribronchovascular opacities within the right lung read as potential organizing pneumonia (inflammatory vs infectious) and new wall thickening of the ascending colon and terminal ilium compatible with enterocolitis enterocolitis (inflammatory vs infectious). - Bcx (08/23) fortune-sensitive E coli x 2 samples. Bcx 08/24 NGTD. Daily Bcx until clears - ID following. - D/c vanc (08/23- 08/24). Continue zozyn (08/23- ). 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 - Medical oncology following. Seen by Dr Gillespie during this admission. 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 08/07 Liver transplant doppler showed patent arterial, portal and hepatic venous systems. No thrombosis. - Continue current tacrolimus dose at 0.5 mg every other day. Daily tacro levels. 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 Recentresistance panel shows maribavir and ganciclovir resistance. CMV PCR stable 2890. - Transplant ID following. Started foscarnet and valganciclovir (08/24- ). - Recheck CMV PCR in a few days to monitor response Macrocytic anemia Assessment & Plan - B12 WNL. Folate pending. Eustachian tube dysfunction, bilateral Assessment & Plan status post endoscopic sinus surgery (bilateral maxillary antrostomy, total ethmoidectomy, frontal sinusotomy, and sphenoidotomy) and septoplasty on 08/28/2022 for chronic rhinosinusitis and recurrent acute exacerbations. Idiopathic thrombocytopenic purpura (HCC) Assessment & Plan s/p splenectomy in 2012. Platelets wnl now. Code status : Full Code Diet : Adult Diet Regular PT/OT Dispo Rec : / Supplementary Attestation The total encounter time on this service date was 55 minutes which was spent performing a [id number] encounter and personally completing the provider-level activities documented in the note. This includes time spent prior to the visit and after the visit in direct care of the patient. This time does not include time spent in any separately reportable services. Karena Verdugo MD * Karena Mak MD - 08/24/2023 1:01 PM CDT Oncology Daily Progress Note Division of Hospital Medicine Name: Beka Lares : 1995 Today's Date: August 24, 2023 Age: 28 y.o. male Admission: 08/23/2023 Bed: [id number] LOS: 1 days Subjective Chief complaint: CMV viremia, GNB bacteremia, hyperbilirubinemia / transaminitis, concern for transplant rejection or PTLD recurrence Interval History - Patient reports progressive BLE edema that started a few weeks ago now with abdominal distension.Bili uptrending 4.3 ->> 5.2. Alk phos, AST and ALT elevated. - Also reports diarrhea- soft stool, 4-5 BM x day of soft consistency. Afebrile a nd hemodynamically stable. Bcx (08/23) GNB x 2 samples. CMV viremia 2890. Objective Scheduled Meds PRN Meds Infusions [START ON 08/25/2023] budesonide, 0.5 mg, nebulization, Daily (RT) enoxaparin, 40 mg, subcutaneous, Daily-2100 maribavir, 400 mg, oral, BID piperacillin-tazobactam, 4.5 g, intravenous, Q6H PIPPA sodium chloride 0.9%, 0.5-20 mL, intra-catheter, Q8H PIPPA tacrolimus, 0.5 mg, oral, Every other day ursodioL, 600 mg, oral, Daily with dinner vancomycin, 1,250 mg, intravenous, Q12H acetaminophen, 650 mg, oral, Q6H PRN sodium chloride 0.9%, 30 mL, intravenous, PRN heparin flush (porcine), 2-5 mL, intra-catheter, PRN heparin flush (porcine), 5 mL, intra-catheter, Once PRN magnesium sulfate, 4 g, intravenous, Q4H PRN magnesium sulfate, 6 g, intravenous, Q4H PRN ondansetron, 8 mg, oral, Q8H PRN OR ondansetron, 8 mg, intravenous, Q8H PRN perflutren protein-a (OPTISON) 3 mL in sodium chloride 0.9% 8 mL syringe, 1-8 mL, intravenous, Oncein imaging potassium chloride ER, 40 mEq, oral, Q2H PRN sodium chloride 0.9%, 0.5-20 mL, intra-catheter, PRN sodium chloride 0.9%, 10 mL, intra-catheter, Once PRN sodium chloride 0.9%, 30 mL/hr, intravenous, Continuous PRN sodium phosphate - potassium phosphate, 500 mg, oral, Daily PRN sodium chloride 0.9%, 30 mL/hr, Last Rate: 30 mL/hr (08/24/23 0555) Vitals Most Recent Vitals: T 36.9 ??C (98.5 ??F), HR 95, BP 116/68, RR 18, SpO2 94 %. 24hr Min/Max: Temp Min: 36.9 ??C (98.5 ??F) Max: 36.9 ??C (98.5 ??F) Pulse Min: 84 Max: 104 BP Min: 111/64 Max: 123/62 Resp Min: 16 Max: 20 SpO2 Min: 94 % Max: 98 % Intake/Output Summary (Last 24 hours) at 08/24/2023 1346 Last data filed at 08/24/2023 1222 Gross per 24 hour Intake 708 ml Output 1080 ml Net -372 ml Physical Exam Gen: No acute distress HEENT: Atraumatic, normocephalic. icteric sclera. Neck: No thyromegaly, no JVD CV: Regular rate and rhythm. BLE edema 1+ Pulm: Clear to ausculation bilaterally. Abd: Bowel sounds present. Soft, non-tender, moderately distended : Deferred. Skin: Jaundiced Neuro: Alert & oriented x 3. Psych: Appropriate mood and affect. Lines, Drains, Airways Peripheral IV 08/23/23 20 G Left Antecubital (Active) Labs/Diagnostic Review CBC: Recent Labs Lab Units 08/24/23 0331 WBC K/cumm 14.3* HEMOGLOBIN g/dL 10.4* HEMATOCRIT % 28.4* MCV fL 101.8* MCH pg 37.3* MCHC g/dL 36.6* RDW CV % 18.7* RDWSD fL 69.1* MPV fL 12.2 NEUTROS ABS K/cumm 7.9* LYMPHS PCT % 26.8 CMP: Recent Labs Lab Units 08/24/23 0331 SODIUM mmol/L 136 POTASSIUM PLASMA mmol/L 4.2 CO2 mmol/L 21* BUN SERUM mg/dL 10 GLUCOSE mg/dL 92 CREATININE mg/dL 0.92 CALCIUM mg/dL 7.6* CHLORIDE mmol/L 108 ALBUMIN g/dL 2.7* AST Units/L 88* ALT Units/L 60* ALK PHOS Units/L 245* BILIRUBIN TOTAL mg/dL 5.2* TOTAL PROTEIN g/dL 4.4* ANIONGAP mmol/L 7 LDH: Recent Labs Lab Units 08/24/23 0331 LACTATE DEHYDROGENASE (LDH) Units/L 527* INR 1.51 Uric Acid:3.5 (Labs above are the most recent result obtained in the last 24 hours unless otherwise specified. For additional labs/trends, see Epic.) I have reviewed the laboratory results. Imaging Review CT Neck Soft Tissue W Contrast Result Date: 08/23/2023 Redemonstrated findings of multistation diffuse cervical lymphadenopathy 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 Please refer to concurrent CT chest for dedicated chest findings. Dictated by: Morgan Corrales MD The radiology attending physician has personally reviewed this study, and had reviewed and/or edited this written report and agrees with it. Electronically signed by: Karli Blount M.D. CT Chest Abdomen Pelvis W Contrast Result Date: 08/23/2023 1. Extensive lymphadenopathy above and below the diaphragm compatible with known post-transplant lymphoproliferative disorder. While a right axillary and left inguinal lymph node have increased in size from 07/09/2022, the majority of lymph nodes are either stable or slightly decreased in size to prior. 2. New peribronchovascular opacities within the right lung which are favored to be infectious/inflammatory, possibly related to organizing pneumonia. 3. New wall thickening of the ascending colon and terminal ilium compatible with enterocolitis which is nonspecific but may be infectious or inflammatory. 4. Stable postsurgical changes of liver transplant. Electronically signed by: Jadyn Thrasher M.D. Assessment/Plan [facility] Assessment & Plan Pt with progressive BLE edema and ascites over past few weeks. Transaminitis and hyperbilirubinemia. Albumin 3.1. Ddx heart failure vs liver transplant failure vs renal etiology vs other. - TTE ordered - Hepatology consult - Lasix prn - Consider LVP prn Elevated LFTs Assessment & Plan He has been having abnormal liver enzymes: [...] elevated but his bilirubin is higher than baseline - CT scan showed postsurgical changes of liver transplant. No suspicious liver lesion. There is mild pneumobilia. Portal and superior mesenteric veins are patent. - Hepatology consulted - Continue home Ursodiol Gram-negative bacteremia Assessment & Plan Pt reports fevers at home, fatigue, diarrhea, jaundice, abdominal distension and BLE edema. Afebrile and HDS on admission. Source unclear. No lines. - CT showed new peribronchovascular opacities within the right lung read as potential organizing pneumonia (inflammatory vs infectious) and new wall thickening of the ascending colon and terminal ilium compatible with enterocolitis enterocolitis (inflammatory vs infectious). - Bcx (08/23) GNB x 2 samples. Follow up. Daily Bcx until clears - On vancomycin and zozyn (08/23- ). 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 08/07 Liver transplant doppler showed patent arterial, portal and hepatic venous systems. No thrombosis. - Continue current tacrolimus dose at 0.5 mg every other day. Daily tacro levels. 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 Recentresistance panel shows maribavir and ganciclovir resistance. CMV PCR stable 2890. - Transplant ID consulted. Plan to start foscarnet. Macrocytic anemia Assessment & Plan - B12 WNL. Folate pending. Eustachian tube dysfunction, bilateral Assessment & Plan status post endoscopic sinus surgery (bilateral maxillary antrostomy, total ethmoidectomy, frontal sinusotomy, and sphenoidotomy) and septoplasty on 08/28/2022 for chronic rhinosinusitis and recurrent acute exacerbations. Idiopathic thrombocytopenic purpura (HCC) Assessment & Plan s/p splenectomy in 2012. Platelets wnl now. Code status : Full Code Diet : Adult Diet Regular PT/OT Dispo Rec : / Supplementary Attestation The total encounter time on this service date was 60 minutes which was spent performing a [id number] encounter and personally completing the provider-level activities documented in the note. This includes time spent prior to the visit and after the visit in direct care of the patient. This time does not include time spent in any separately reportable services. Karena Verdugo MD documented in this encounter H&P Notes * Olena Null MD - 08/23/2023 5:47 PM CDT General H&P Subjective Patient is a 28 y.o. male with chief complaint of fever and jaundice. HPI: 28 y.o. 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 Has been on multiple different therapies including PO valganciclovir, PO letermovir, IV ganciclovir, and PO maribavir. Currently on maribavir 400 mg PO BID with continued viremia. He continuedto have CMV viremia despite maribavir with last CMV PCR around 3000. Recent resistance panel shows maribavir and ganciclovir resistance. He has been having abnormal liver enzymes: predominantly cholestatic pattern w/ rising ALT 04/2022. 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 He is status post endoscopic sinus surgery (bilateral maxillary antrostomy, total ethmoidectomy, frontal sinusotomy, and sphenoidotomy) and septoplasty on 08/28/2022 for chronic rhinosinusitis and recurrent acute exacerbations. He has history of C-MYC positive posttransplant lymphoproliferative disorder, Nadine-De La Cruz virus positive, stage EMY, IPI 3. status post 1 cycle of R-CHOP and 5 cycles of dose-adjusted EPOCH-R. He has never had any evidence of recurrence. 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 Oncology offered release from the [facility], given the low likelihood of a relapse of his PTLD at this juncture, but he would like to continue follow-up Today he was referred from ID clinic due to jaundice, fatigue, fever, and diarrhea He had fever few days ago was more than 100. He also has been vomiting recently, no blood or coffeeground emesis. Has been having diarrhea up to 5 times daily, non bloody, no melena. No chest pain He has been having cough for months and was treated at some point for pneumonia Has exertional SOB with exertion Has abdominal distention but no pain No urinary complains He has been having legs edema that got worse over the past few days causing weight gain, no weight loss. No skin rashes, no travel outside the [place], no recent correction facility stay, no sick contact. Past Medical History: Diagnosis Date Cancer (CMS/HCC) (HCC) CMV (cytomegalovirus infection) (HCC) Community acquired pneumonia [...] Admission Medication Sig Dispense Refill Last Dose acetaminophen (TYLENOL) 500 mg tablet Take 2 tablets (1,000 mg total) by mouth every 6 (six) hours as needed for pain (Patient not taking: Reported on 02/08/2023) 30 tablet 1 budesonide (PULMICORT) 0.5 mg/2 mL nebulizer solution Take 0.5 mg by nebulization daily Rinse mouthwith water after use. Do not swallow. (Patient not taking: Reported on 02/08/2023) maribavir (LIVTENCITY) 200 mg tablet Take 2 tablets (400 mg total) by mouth 2 (two) times a day 28 tablet 0 maribavir (LIVTENCITY) 200 mg tablet Take 2 tablets (400 mg total) by mouth 2 (two) times a day 120tablet 5 tacrolimus (PROGRAF) 0.5 mg immediate-release capsule Take 1 capsule (0.5 mg total) by mouth every other day 15 capsule 11 traZODone (DESYREL) 50 mg tablet Take 1 tablet (50 mg total) by mouth nightly 30 tablet 2 ursodioL (ACTIGALL) 300 mg capsule Take 2 capsules (600 mg total) by mouth daily with dinner 180 capsule 3 No Known Allergies Social History Tobacco Use Smoking status: Never Smokeless tobacco: Current Types: Chew Substance and Sexual Activity Drug use: Not Currently Sexual activity: Defer Alcohol Use: Not At Risk (08/28/2022) AUDIT-C Frequency of Alcohol Consumption: 2-4 times a month Average Number of Drinks: 1 or 2 Frequency of Binge Drinking: Never Family History Problem Relation Age of Onset Rectal cancer Mother Rectal cancer - (Added by MARIN Conv) Diabetes type II Sister Family history of type 2 diabetes mellitus - (Added by MARIN Conv) Anesthesia problems Other No Known Problems Father Review of Systems Objective Vitals: Arrival Vitals [08/23/23 1550] Temp 36.9 ??C (98.5 ??F) Pulse 84 Resp 20 BP 123/62 SpO2 98 % Temp src Oral Heart Rate Source Pulse Oximetry Patient Position Sitting BP Location Right arm FiO2 (%) 24hr Min/Max: Temp Min: 36.9 ??C (98.4 ??F) Max: 36.9 ??C (98.5 ??F) Pulse Min: 79 Max: 84 BP Min: 112/62 Max: 138/80 Resp Min: 20 Max: 20 SpO2 Min: 98 % Max: 98 % Most Recent : Vitals: 08/23/23 1833 BP: 112/62 Pulse: 84 Resp: Temp: SpO2: No intake/output data recorded. I/O this shift: In: - Out: 350 [Urine:350] Physical Exam Constitutional: General: He is not in acute distress. Appearance: He is normal weight. He is not ill-appearing or toxic-appearing. HENT: Head: Normocephalic and atraumatic. Comments: bald Eyes: Extraocular Movements: Extraocular movements intact. Cardiovascular: Rate and Rhythm: Normal rate. Heart sounds: Normal heart sounds. No murmur heard. Pulmonary: Effort: Pulmonary effort is normal. No respiratory distress. Breath sounds: No wheezing, rhonchi or rales. Abdominal: General: Abdomen is flat. Palpations: Abdomen is soft. Tenderness: There is no abdominal tenderness. Musculoskeletal: General: Swelling (pitting bilaterally) present. Cervical back: Normal range of motion. Skin: Coloration: Skin is jaundiced and pale. Findings: No rash. Neurological: General: No focal deficit present. Mental Status: He is alert and oriented to person, place, and time. Lab/Radiology/Diagnostic Review: Laboratory review: Lab results in the last 24 hours: Recent Results (from the past 24 hour(s)) CBC with auto differential Collection Time: 08/23/23 10:21 AM Result Value Ref Range WBC 12.4 (H) 3.8 - 9.9 K/cumm Hgb 11.9 (L) 13.0 - 17.5 g/dL Hct 33.8 (L) 38.9 - 50.3 % Plt 276 150 - 400 K/cumm MPV 11.8 9.1 - 12.3 fL RBC 3.21 (L) 4.30 - 5.80 M/cumm MCV 105.3 (H) 81.3 - 96.4 fL MCH 37.1 (H) 27.1 - 33.3 pg MCHC 35.2 32.3 - 35.7 g/dL RDW CV 19.1 (H) 11.1 - 14.9 % RDW SD 74.3 (H) 35.7 - 48.1 fL NRBC abs 0.00 0.00 - 0.01 K/cumm Comprehensive metabolic panel, without glucose ([facility]) Collection Time: 08/23/23 10:21 AM Result Value Ref Range Sodium 141 135 - 145 mmol/L Potassium, pl 3.7 3.3 - 4.9 mmol/L Chloride 111 (H) 97 - 110 mmol/L CO2 23 22 - 32 mmol/L Anion gap 7 2 - 15 mmol/L BUN 9 6 - 25 mg/dL Creatinine 0.81 0.80 - 1.30 mg/dL Calcium 8.3 (L) 8.5 - 10.3 mg/dL Protein, pl 4.8 (L) 6.5 - 8.5 g/dL Albumin 3.1 (L) 3.5 - 5.0 g/dL Bilirubin, total 4.3 (H) 0.1 - 1.2 mg/dL Alk phos 263 (H) 40 - 130 Units/L AST 90 (H) 10 - 50 Units/L ALT 67 (H) 7 - 55 Units/L Glucose, random ([facility]) Collection Time: 08/23/23 10:21 AM Result Value Ref Range Glucose 120 70 - 199 mg/dL eGFR Collection Time: 08/23/23 10:21 AM Result Value Ref Range eGFR >90 90 - 130 mL/min/1.73 m2 Manual Differential Collection Time: 08/23/23 10:21 AM Result Value Ref Range Differential Manual Cells Counted 119 Neutrophil abs 7.3 (H) 1.7 - 6.5 K/cumm Imm gran abs 0.1 0.0 - 0.1 K/cumm Lymphocyte abs 2.5 0.8 - 3.3 K/cumm Monocyte abs 1.8 (H) 0.2 - 0.8 K/cumm Eosinophil abs 0.7 (H) 0.0 - 0.5 K/cumm Neutrophil pct 58.8 % Lymphocyte pct 20.2 % Monocyte pct 14.3 % Eosinophil pct 5.9 % Myelocytes 0.8 % RBC morphology Present (A) Anisocytosis Marked (A) Poikilocytosis Marked (A) Microcytes 3-7/HPF (A) Macrocytes > 15/HPF (A) Schistocytes > 7/HPF Target cells 3-7/HPF (A) Acanthocytes 8-15/HPF (A) Echinocytes > 15/HPF (A) Platelet estimate Adequate CBC with auto differential Collection Time: 08/23/23 5:47 PM Result Value Ref Range WBC 13.8 (H) 3.8 - 9.9 K/cumm Hgb 11.6 (L) 13.0 - 17.5 g/dL Hct 31.8 (L) 38.9 - 50.3 % Plt 254 150 - 400 K/cumm MPV 11.4 9.1 - 12.3 fL RBC 3.10 (L) 4.30 - 5.80 M/cumm MCV 102.6 (H) 81.3 - 96.4 fL MCH 37.4 (H) 27.1 - 33.3 pg MCHC 36.5 (H) 32.3 - 35.7 g/dL RDW CV 19.2 (H) 11.1 - 14.9 % RDW SD 71.3 (H) 35.7 - 48.1 fL NRBC abs 0.00 0.00 - 0.01 K/cumm Differential, auto Collection Time: 08/23/23 5:47 PM Result Value Ref Range Neutrophil abs 6.7 (H) 1.7 - 6.5 K/cumm Imm gran abs 0.1 0.0 - 0.1 K/cumm Lymphocyte abs 4.4 (H) 0.8 - 3.3 K/cumm Monocyte abs 2.0 (H) 0.2 - 0.8 K/cumm Eosinophil abs 0.6 (H) 0.0 - 0.5 K/cumm Basophil abs 0.1 0.0 - 0.1 K/cumm Neutrophil pct 48.4 % Imm gran pct 0.4 % Lymphocyte pct 32.0 % Monocyte pct 14.4 % Eosinophil pct 4.4 % Basophil pct 0.4 % Assessment Principal Problem: Fever in adult Active Problems: Elevated LFTs Cytomegalovirus infection (HCC) History of liver transplant (CMS/HCC) (HCC) 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) Idiopathic thrombocytopenic purpura (HCC) Eustachian tube dysfunction, bilateral Diarrhea Organizing pneumonia (CMS/HCC) (HCC) Macrocytic anemia Edema of both legs Plan Elevated LFTs Assessment & Plan He has been having abnormal liver enzymes: predominantly cholestatic pattern w/ rising ALT 04/2022. 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 - he has been jaundiced lately - ALT and AST slightly elevated but his bilirubin is higher than baseline - CT scan showed Postsurgical changes of liver transplant. No suspicious liver lesion. There is mild pneumobilia. The portal and superior mesenteric veins are patent. - Consult Liver transplant team tomorrow - Continue home Ursodiol * Fever in adult Assessment & Plan intermittent CMV viremia since 06/2019. Has been on multiple different therapies including PO valganciclovir, PO letermovir, IV ganciclovir, and PO maribavir. Currently on maribavir 400 mg PO BID withcontinued viremia. He continued to have CMV viremia despite maribavir with last CMV PCR around 3000on 07/29/23. Recent resistance panel shows maribavir and [...] cultures result. He has fever and leucocytosis History of liver transplant (CMS/HCC) (HCC) Assessment & Plan - Tacrolimus trough has been low sometimes per chart - Will get AM trough level 30-60 minutes before dose tomorrow - continue current tacrolimus dose at 0.5 mg every other day for now - 08/07 Liver transplant doppler showed Patent arterial, portal and hepatic venous systems. No thrombosis. 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 Recentresistance panel shows maribavir and ganciclovir resistance. Eustachian tube dysfunction, bilateral Assessment & Plan status post endoscopic sinus surgery (bilateral maxillary antrostomy, total ethmoidectomy, frontal sinusotomy, and sphenoidotomy) and septoplasty on 08/28/2022 for chronic rhinosinusitis and recurrent acute exacerbations. Idiopathic thrombocytopenic purpura (HCC) Assessment & Plan s/p splenectomy in 2013 Normal platelets now Edema of both legs Assessment & Plan Get Echo tomorrow Might be due to ?new transplant failure Albumin 3.1 Get UA and Ptn/Cr ratio to look for proteinuria Macrocytic anemia Assessment & Plan Get B12, folate, and TSH levels Organizing pneumonia (CMS/HCC) (HCC) Assessment & Plan Ct chest showed New peribronchovascular opacities within the right lung which are favored to be infectious/inflammatory, possibly related to organizing pneumonia. - Zosyn and Vancomycin for now, get nasal MRSA Diarrhea Assessment & Plan Likely CMV colitis as CT scan showed New wall thickening of the ascending colon and terminal ilium compatible with enterocolitis which is nonspecific but may be infectious or inflammatory. - get stool studies including C. Diff and culture - Start Zosyn The total encounter time on this service date was 80 minutes which was spent performing a [id number] encounter and personally completing the provider-level activities documented in the note. This includes time spent prior to the visit and after the visit in direct care of the patient. This time does not include time spent in any separately reportable services. Olena Null MD documented in this encounter Procedure Notes * Delia Ashby MD - 09/01/2023 3:45 PM CDTAssociated Order(s): [facility] Patient Name: Beka Lares Procedure Date: 09/01/2023 3:45 PM Date of : 1995 Admit Type: Inpatient Age: 28 Gender: Male Attending MD: Delia Ashby M.D. Room: [facility] ENDOSCOPY Note Status: Finalized Procedure: Colonoscopy Indications: Abnormal CT of the GI tract Referring MD: Anita Gillsepie Providers: Delia D. Ashby, M.D. Medicines: Monitored Anesthesia Care Complications: No immediate complications. Estimated Blood Loss: Estimated blood loss was minimal. Procedure: Pre-Anesthesia Assessment: - Immediately prior to administration of medications, the patient was re-assessed for adequacy to receive sedatives. - The risks and benefits of the procedure and the sedation options and risks were discussed with the patient. All questions were answered and informed consent was obtained. The benefits, risks and alternatives of the procedure and sedation were discussed and informed consent was obtained. All questions were answered. Please refer to the signed informed consent document in the medical record. The scope was passed under direct vision. The Colonoscope was introduced through the anus and advanced to the the terminal ileum, with identification of the appendiceal orifice and IC valve. The colonoscopy was performed without difficulty. The patient tolerated the procedure well. The quality of the bowel preparation was fair. The quality of the bowel preparation was evaluated using the BBPS ([place] Bowel Preparation Scale) with scores of: Right Colon = 1 (portion of mucosa seen, but other areas not well seen due to staining, residual stool and/or opaque liquid), Transverse Colon = 2 (minor amount of residual staining, small fragments of stool and/or opaque liquid, but mucosa seen well) and Left Colon = 2 (minor amount of residual staining, small fragments of stool and/or opaque liquid, but mucosa seen well). The total BBPS score equals 5. The quality of the bowel preparation was fair. The bowel preparation used was GoLYTELY via split dose instruction. Findings: The perianal and digital rectal examinations were normal. The colon (entire examined portion) appeared normal. Biopsies were taken with a cold forceps for histology. The terminal ileum appeared normal. Biopsies were taken with a cold forceps for histology. No additional abnormalities were found on retroflexion. Impression: - Preparation of the colon was fair. - The entire examined colon is normal. Biopsied. - The examined portion of the ileum was normal. Biopsied. Recommendation: - Await pathology results. - Further recommendations per the inpatient service. Attending Participation: I was present and participated during the entire procedure, including non-santana portions. Electronically signed by Delia Ashby MD Delia Ashby M.D. 09/02/2023 10:06:42 AM Number of Addenda: 0 Note Initiated On: 09/01/2023 3:45 PM Recognized by the [employer] for promoting quality in endoscopy * Sundeep Alexander RN - 08/31/2023 4:28 PM CDT Images from the original note were not included. Vascular Access Nurse: Procedure Note Summary of treatment provided to patient today is as follows : . Bedside Procedure Time out/Checklist (last 4 hours) Pre-Op Checklist Row Name 08/31/23 1612 08/31/23 1605 08/31/23 1535 08/31/23 1341 Patient/Chart Verification Patient ID Verified Verbal;Armband -AW -- -- -- Allergies Verified Yes -AW -- -- -- Arm Bands On ID -AW -- -- -- Pre-op Lab/Test Results Available In chart -AW -- -- -- Antibiotic Status Not applicable -AW -- -- -- Arm Bands On -- -- -- ID;Allergies - Procedure Verification Correct Patient Yes -AW -- -- -- Correct Procedure Yes -AW -- -- -- Correct Laterality Yes -AW -- -- -- Correct Site Yes -AW -- -- -- Site Marked Yes -AW -- -- -- Patient Preparation Temp -- 36.6 ??C (97.9 ??F) -AK 36.5 ??C (97.7 ??F) -IO -- User Santana (r) = Recorded By, (t) = Taken By, (c) = Cosigned By Initials Name Sundeep Sorto, Nancy Armas RN IO Ortiz, Isabella Marin, RN CH Hughes, Christopher Trevon Vascular Access Documentation (last 4 hours) [facility] Additional Procedures Row Name 08/31/23 1613 08/31/23 1355 PICC Screening Questionnaire Order written on the chart for PICC insertion or placement? Y -AW -- Information form/Consent Obtained from POA/ Family Y -AW -- Is there an order from Renal giving ok to place PICC line? N/A -AW -- Are there any location restrictions? Y -AW -- Which location is NOT accessible for line placement? Left -AW -- Reason location not accessible for line placement Other (comment) thrombus -AW -- Does the patient have history of DVT or SVC syndrome? Currently has -AW -- Does the patient currently have blood clots in chest / arms? Y LUE -AW -- Review of all IV meds/drips completed Yes -AW -- Patient allergies reviewed? Y -AW -- Labs Reviewed if applicable INR;Blood Cultures;Platelet count;Creatinine;GFR -AW -- Procedures Line Type PICC double -AW -- Time in 1600 -AW -- Vascular Access Procedures PICC line assessment;PICC line placement;PICC dressing change;Education PICC/Midline -AW -- Peripheral IV 08/31/23 22 G Anterior;Right Forearm IV Properties Placement Date: 08/31/23 -GS Placement Time: 1115 -GS IV Change Due: 09/08/23 -GS Size (Gauge): 22 G -GS Location Orientation: Anterior;Right - GS Location: Forearm -GS Site Prep: Alcohol -GS Inserted by: Karli -GS Insertion attempts: 1 -GS Patient Tolerance: Tolerated well -GS Site Assessment -- Clean and dry -GS IV Line Status Single -- Blood return noted;Infusing -GS Dressing Status -- New -GS Dressing Intervention -- Dressing changed -GS Tubing Changed -- Done -GS Dressing Change Due -- 09/07/23 -GS PICC Double Lumen 08/31/23 Non-tunneled Power #1 Purple, #2 Red, Right Basilic Line Properties Placement Date: 08/31/23 -AW Placement Time: 1621 -AW Catheter Time Out Checklist Completed: Yes -AW Hand Hygiene Performed: Yes -AW Site Prep: Chlorhexidine -AW Site Prep Agent has Completely Dried Before Insertion: Yes - AW All 5 Sterile Barriers or Appropriate Barriers Used (Gloves, Gown, Cap, Mask, Large Sterile Drape): Yes -AW Local Anesthetic: Injectable -AW CVC Type: Non-tunneled -AW Power injectable: Power -AW Lumen # 1: #1 Purple, -AW Lumen # 2: #2 Red, -AW Size (Fr): 4 -AW Orientation: Right -AW Location: Basilic -AW Technique: Modified seldinger;Internal stiffener stylet removed easily;Ultrasound used to locate and cannulate vein;Standard insertion technique with peel away sheath -AW Lot #: [id number] -AW Expiration Date: 04/30/24 -AW Trimmed Length (cm) : 39 cm -AW Line Tip Location : Central -AW Initial Extremity Circumference (cm): 25 cm -AW Circumference Reference Point: 5 -AW Initial External Length Catheter (cm): 0 cm -AW Placement Verification: Blood return;ECG;Ultrasound -AW Line Secured by : Securement device -AW Inserted by: Lily Duran RN -AW Assisted By: Radhames Alexander RN -AW Insertion attempts: 1 -AW Patient Tolerance: Tolerated well -AW Site Assessment Clean and dry;Catheter looped appropriately -AW -- External Length warren (cm) 1 cm -AW -- Extremity Circumference (cm) 25 cm -AW -- Dressing Type CHG Dressing;Transparent -AW -- Dressing Status New;Clean, dry, intact;Occlusive -AW -- Dressing Intervention Dressing changed;Label applied -AW -- Dressing Change Due 09/07/23 -AW -- Observer Present Yes -AW -- Lumen #1 Status Blood return brisk;Capped - Needleless;Capped - Disinfectant;Saline locked;Flushes easily -AW -- Lumen #1 Line Interventions Flushed -AW -- Lumen # 1 Needleless Device Changed 08/31/23 -AW -- Lumen #2 Status Blood return brisk;Capped - Needleless;Capped - Disinfectant;Saline locked;Flushes easily -AW -- Lumen #2 Line Interventions Flushed -AW -- Lumen #2 Needleless Device Changed 08/31/23 -AW -- Line Necessity Reason Reviewed With Care Team Patient has history of poor peripheral vascular access with multiple failed attempts at PIV insertion -AW -- User Santana (r) = Recorded By, (t) = Taken By, (c) = Cosigned By Initials Name AW Sundeep Alexander RN GS Sutton, Gloria, RN PICC placed per order w/o complication. 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 Paracentesis Date/Time: 08/27/2023 2:24 PM Performed by: Fabi Son MD Authorized by: Marylou Goodson MD [place] Protocol: RN Notified of Procedure: yes Informed consent: Risks, benefits, alternatives discussed Patient's stated name/ matches armband: Yes Allergies confirmed: yes Consent form signed, dated, timed; matches correct patient, intended procedure and site: Yes Imaging: N/a Lab/Diag test results: N/a Supplies, devices and special equipment are available: yes Site/side marked: yes Immediately prior to the procedure a time out was called: a verbal verification by the procedure participants confirmed correct patient identity, correct site/side marked and visible (if applicable);agreement on procedure to be done; and correct patient positioning Initial or subsequent exam: Initial Procedure purpose: Diagnostic and therapeutic Indications: new onset ascites Done with ultrasound: Yes Ultrasound guidance: Pre-procedure diagnostic See LLQ and RLQ US imaging below, pt does not have adequate pocket for safe paracentesis. Discussedwith pt and primary provider who agreed to not move forward with the procedure. Cosigned by Marylou Goodson MD at 08/30/2023 3:57 PM CDT Associated attestation - Marylou Goodson MD - 08/30/2023 3:57 PM CDT The patient was evaluated today with bedside ultrasound for a procedure, but no procedure was attempted. Procedure and Indication: Procedure: paracentesis. Indication(s): abdominal distention Ultrasound images were obtained and reviewed by me. There was insufficient fluid for procedural intervention in the abdominal space. A bedside procedure is not recommended at this time. A customer assistance representative ultrasound image of those obtained at the bedside are included below: Marylou Goodson MD * Rickie, Charles Gross MD - 08/27/2023 1:02 PM CDTAssociated Order(s): EUS [facility] Patient Name: Beka Lares Procedure Date: 08/27/2023 1:02 PM Date of : 1995 Admit Type: Inpatient Age: 28 Gender: Male Attending MD: Charles Damian M.D. Room: [facility] ENDOSCOPY ROOM 2 Note Status: Finalized Procedure: Upper EUS Indications: Lymphadenopathy on MRI; h/o OLT for Autoimmune Hepatitis, ITP s/p splenectomy, with PTLD. Patient now with diffuse adenopathy, anasarca and jaundice. Request for EUS for sampling of abdominal lymph nodes and for liver biopsy. Referring MD: Rafia Bautista M.D., Anita Gillespie M.D. Providers: Charles Damian M.D. Medicines: Monitored Anesthesia Care; Ciprofloxacin 400mg IV x 1. Complications: No immediate complications. Estimated blood loss: Minimal. Estimated Blood Loss: Estimated blood loss was minimal. Procedure: Pre-Anesthesia Assessment: - The risks and benefits of the procedure and the sedation options and risks were discussed with the patient. All questions were answered and informed consent was obtained. - Immediately prior to administration of medications, the patient was re-assessed for adequacy to receive sedatives. - The anesthesia plan was to use monitored anesthesia care (MAC). The risks, benefits and alternatives were discussed and informed consent was obtained.The GIF [id number] endoscope was introduced through the mouth, and advanced to the second part of duodenum The Olympus curved linear array therapeutic endosonoscope [id number] was introduced through the mouth, and advanced to the duodenal bulb The upper EUS was accomplished without difficulty. The patient tolerated the procedure well. Findings: ENDOSCOPIC FINDING: : The examined esophagus was normal. The gastric mucosa was diffusely edematous and cobblestoned reminiscent of portal hyperentsive gastropathy vs 2/2 diffuse anasarca/volume overload. The examined duodenum was normal. ENDOSONOGRAPHIC FINDING: : The esophagus, stomach and duodenum were visualized endosonographically. Many malignant-appearing lymph nodes were visualized in the celiac region (level 20), perigastric region, peripancreatic region and shanita hepatis region. The largest measured 30 mm in maximal cross-sectional diameter. The nodes were oval, hypoechoic and had well defined margins. A 2.7cm retroperitoneal lymph node was targed for transgastric sampling. Fine needle aspiration for histology and flow cytometry was performed. Color Doppler imaging was utilized prior to needle puncture to confirm a lack of significant vascular structures within the needle path. Two passes were made with the 22 gauge Acquire needle using a transgastric approach. A stylet was used. Multiple visible cores of tissue were obtained and sent for pathology and flow cytometry. There was no sign of significant endosonographic abnormality in the left lobe of the liver. No focal pathology was identified. The patient is post a splenectomy. The left lobe of the liver was examined from the stomach and the medial right lobe examined from the duodenal bulb. The stylet was removed from a 19 G biopsy needle which was then primed with saline. The needle was then advanced through the scope. Doppler flow was utilized to establish and avascular path in both locations. Under EUS guidance, the needle was advanced across the gastric wall and beyond the liver capsule. Suction was then applyed and the needle advanced rapidly and deeply into the liver parenchyma once. Suction was then turned off and the needle slowly withdrawn over a few seconds. The specimens were expelled into formalin with visible cores of tissue present. The region of the celiac plexus and celiac ganglia was visualized and showed no sign of significant endosonographic abnormality. The vascular anatomy of the region was normal. Impression: EGD: - No esophageal varices. - The gastric mucosa was diffusely edematous and cobblestoned reminiscent of portal hyperentsive gastropathy vs 2/2 diffuse anasarca/volume overload. EUS: - Many malignant-appearing lymph nodes were visualized in the celiac region (level 20), perigastric region, peripancreatic region and shanita hepatis region. A 2.7cm retroperitoneal lymph node was targed for transgastric sampling. Fine needle aspiration for histology and flow cytometry was performed. - There was no evidence of significant pathology in the left lobe of the liver. The patient is post a splenectomy. Successful EUS guided liver biopsy was performed as described. Recommendation: - Observe patient's clinical course following today's EUS with FNA - Await pathology and flow cytometry. - Followup with Medical Oncology - Followup with Hepatology. - Watch for pancreatitis, bleeding, perforation. - Please avoid NSAIDs (i.e Motrin, Aleve, Ibuprofen, Advil, Naproxen, etc) for the next 10-14 days. If you are taking Aspirin 81mg (baby aspirin) for clear cardiovascular or neurologic indications, you should continue this. - Return to [facility] for [facility] care. - Further recommendations per inpatient Hepatology Service. - Call my nurse Kenisha Quintero RN in the GI office at [phone] for your final results in 7 days. Attending Participation: I personally performed the entire procedure. Electronically Signed By: Charles Damian M.D. Charles Damian M.D. 08/27/2023 2:42:07 PM . Number of Addenda: 0 Note Initiated On: 08/27/2023 1:02 PM Recognized by the [employer] for promoting quality in endoscopy documented in this encounter Consult Notes * Adina Chandler RD - 09/03/2023 11:29 AM CDTAssociated Order(s): CONSULT TO CLINICAL NUTRITION NUTRITION ASSESSMENT Nutrition Status: Patient appears adequately nourished at this time. REASON FOR ASSESSMENT: Consult/Referral - Diet Education and Follow Up Encounter Date: 09/03/23 11:29 AM Admission Date: 08/23/2023 LOS: 11 days HPI: Patient is a 28 y.o. male with a history of f refractory ITP s/p splenectomy in 2012, cirrhosis dueto autoimmune hepatitis s/p liver transplant 03/30/19 c/b PTLD (c-Myc, EBV+) s/p CHOP x 1 (2016), DA=EPOCH-R x 5 (09/2017-12/2017) with IT MTX who achieved complete remission 12/2017 with intermittent CMV viremia since 06/2019 presenting with fever and jaundice. Objective Past Medical History: Diagnosis Date Cancer (CMS/HCC) [...] Types: Alcohol Sexual activity: Defer Alcohol Use: Heavy Drinker (09/01/2023) AUDIT-C Frequency of Alcohol Consumption: Monthly or less Average Number of Drinks: 5 or 6 Frequency of Binge Drinking: Monthly MEDICATION/LAB REVIEW: Scheduled Meds: budesonide, 0.5 mg, nebulization, Daily (RT) cefTRIAXone, 2,000 mg, intravenous, Q24H PIPPA enoxaparin, 40 mg, subcutaneous, Daily-2100 foscarnet, 6,000 mg, intravenous, Q12H PIPPA furosemide, 40 mg, oral, Daily magnesium oxide, 400 mg, oral, BID metroNIDAZOLE, 500 mg, oral, TID potassium chloride ER, 20 mEq, oral, Daily sodium chloride 0.9%, 500 mL, intravenous, Q12H PIPPA sodium chloride 0.9%, 0.5-20 mL, intra-catheter, Q8H PIPPA sodium chloride 0.9%, 0.5-20 mL, intra-catheter, Q8H PIPPA sodium chloride 0.9%, 0.5-20 mL, intra-catheter, Q8H PIPPA sodium chloride 0.9%, 0.5-20 mL, intra-catheter, Q8H PIPPA sodium chloride 0.9%, 5-10 mL, intra-catheter, Q12H PIPPA sodium phosphate - potassium phosphate, 250 mg, oral, BID with meals (bkfst, dinner) spironolactone, 100 mg, oral, Daily tacrolimus, 0.5 mg, oral, Daily ursodioL, 600 mg, oral, Daily with dinner valGANciclovir, 900 mg, oral, BID Continuous Infusions: sodium chloride 0.9%, 30 mL/hr, Last Rate: 30 mL/hr (08/28/23 1333) PRN Meds: acetaminophen sodium chloride 0.9% sodium chloride 0.9% sodium chloride 0.9% heparin flush (porcine) heparin flush (porcine) magnesium sulfate magnesium sulfate ondansetron OR ondansetron potassium chloride ER sodium chloride 0.9% sodium chloride 0.9% sodium chloride 0.9% sodium chloride 0.9% sodium chloride 0.9% sodium chloride 0.9% sodium chloride 0.9% sodium phosphate - potassium phosphate Recent Labs Lab Units 09/03/23 03009/02/2331408/31/235 SODIUM mmol/L 143 144 145 POTASSIUM PLASMA mmol/L 3.9 4.0 3.8 CHLORIDE mmol/L 110 112* 110 CO2 mmol/L 26 25 26 BUN SERUM mg/dL 11 14 11 CREATININE mg/dL 0.80 0.73* 0.71* [id number] mL/min/1.73 m2 >90 >90 >90 CALCIUM mg/dL 8.4* 8.4* 8.1* ALBUMIN g/dL 2.6* 2.4* 2.7* PHOSPHORUS PLASMA mg/dL 3.4 4.3 3.9 MAGNESIUM mg/dL 1.5 1.8 1.6 Recent Labs Lab Units 09/03/23 0301 09/02/2331408/31/23232408/31/23211408/31/23 0237 08/30/23 0347 08/29/23 0310 GLUCOSE mg/dL 85 142 -- 68* 77 83 77 POC GLUCOSE MONITOR mg/dL -- -- 107 -- -- -- -- ALT Date Value Ref Range Status 09/03/2023 43 7 - 55 Units/L Final AST Date Value Ref Range Status 09/03/2023 81 (H) 10 - 50 Units/L Final Alk phos Date Value Ref Range Status 09/03/2023 195 (H) 40 - 130 Units/L Final Lab Results Component Value Date HDL 31 (L) 06/12/2020 LDLCALC 76 06/12/2020 CHOL 135 06/12/2020 TRIG 139 06/12/2020 NURSING ASSESSMENT: Last BM Date: 09/01/23 Bowel Sounds (All Quadrants): Active Jerod Scale Score: 20 Skin Integrity: Intact Vital Signs BP: 99/53 Temp: 36.8 ??C (98.2 ??F) Pulse: 83 Resp: 16 SpO2: 97 % Intake/Output Summary (Last 24 hours) at 09/03/2023 1129 Last data filed at 09/03/2023 0802 Gross per 24 hour Intake 3879.44 ml Output 3575 ml Net 304.44 ml Adult Malnutrition Scoring Tool (MST) What diet do you follow at home?: regular Have You Recently Lost Weight Without Trying?: No Have you been eating poorly because of a decreased appetite?: Yes Malnutrition Screening Tool (MST) Score: 1 Anthropometrics Weight: 71.2 kg (157 lb) Admission Weight : 65.8 kg Weight Change: -1.36 kg (-3.00 lbs) IBW/kg (Calculated) : 69.9 kg Height: 172.7 cm (5' 8 ) Weight in (lb) to have BMI = 25: 164.1 BMI (Calculated): 23.9 Wt Readings from Last 10 Encounters: 09/02/23 71.2 kg (157 lb) 08/26/23 65.8 kg (145 lb) 08/23/23 66.2 kg (146 lb) 05/31/23 61.2 kg (135 lb) 04/19/23 59.4 kg (131 lb) 12/30/22 60.7 kg (133 lb 12.8 oz) 12/30/22 62 kg (136 lb 9.6 oz) 08/31/22 63.5 kg (140 lb) 08/17/22 65.8 kg (145 lb) 07/11/22 58 kg (127 lb 14.6 oz) ESTIMATED NEEDS: Total Kcal/kg Estimated Needs : 1959.55 Kcal/k. Type of Weight Used for Estimated Kcals: Current Total Protein Estimated Needs (gm): 94.35 Protein Needs Based on g/k.3 Type of Weight Used for Estimated Protein : Current Total Fluid Estimated Needs: 1745 Fluid Needs Based on : 25 ml/kg Type of Weight Used for EstimatedFluid Needs: [place] Dietary Orders (From admission, onward) Start Ordered 09/01/23 175 Adult Diet Restricted; 2 GM Sodium Diet effective now Question Answer Comment ([facility]) Diet type Restricted Fat / Sodium Restriction: 2 GM Sodium 09/01/23 175 Allergies: Reviewed. IMPRESSION: 09/03: Consulted for low sodium diet education. Pt continues to report a good appetite and eating well, anxious to get out of the hospital. He was agreeable to education. 08/31: Pt reported appetite has been good and has been the same. He typically eats about big 2 meals a day and snacking in-between when he is at home. Pt denies any chewing or swallowing issues. Pt denies N/V/D or constipation. Pt stated he has had regular BM, but they have lessened since being admitted. Typically he has 3-4 BM/day and it has decreased to two. BM are typically soft, loose stools. Pt stated UBW is #130. Per chart, ABW is 160#. Per chart, wt has been increased from 145# on 08/23 to 160# 08/31. Pt is experiencing fluid retention. Wt gain can be associated with fluid retention. Anticipate wt loss since pt is on Lasix 2x daily. Will continue to monitor wt. Labs: 08/31 - Cl 112, Cr 0.71, Phos 5.4. Rest of Lytes WNL. ASPEN MALNUTRITION ASSESSMENT: N/A NUTRITION FOCUSED PHYSICAL EXAM: N/A NUTRITION DIAGNOSIS: Nutrition Diagnosis 1: No nutrition issue at this time INTERVENTION(S): Summary: Assess for nutrition changes, Home diet preferences within the limits of nutrition care order, Follow up per policy, Vitamin/mineral supplementation, Encouragement, Initial assessment, Meals and snacks Educated patient on a 2gm Sodium Diet. Discussed common foods high in sodium. Discussed choosing fresh or frozen fruits and vegetables and fresh meats. Discussed avoiding pre-packaged foods, canned foods, and frozen dinners. Educated pt on label reading and discussed sodium-free flavoring tips. Handout provided and reviewed. Recommend MVI supplement daily Will continue to monitor: nutrition-related lab values, PO intake, wt changes, and BM. GOAL(S): Continue adequate PO intakes MONITORING/EVALUATION: Appetite, Electrolyte changes, Weight changes, Stool patterns, Labs, I/O, Hydration status, Diet-related questions, Diet advancement Adina Chandler MS, RD, LD [phone] * Cathleen Daniel NP - 08/24/2023 4:33 PM CDTAssociated Order(s): IP CONSULT [facility] Images from the original note were not included. Medical Oncology Consult Date: 08/24/2023 Name: Beka Lares : 1995 AGE: 28 y.o. Chief Complaint: CMV viremia, GNB bacteremia, hyperbilirubinemia / transaminitis, concern for transplant rejection or PTLD recurrence History of Present Illness Mr. Lares is a 28 y.o.male with history of refractory ITP s/p splenectomy in 2012, cirrhosis due toautoimmune hepatitis s/p liver transplant 03/30/1999 (age 4) c/b PTLD (c-Myc, EBV+) s/p CHOP x 1 (2016), DA=EPOCH-R x 5 (09/2017-12/2017) with IT MTX who achieved complete remission 12/2017 with intermittent CMV viremia since 06/2019. Has been on multiple different therapies including PO valganciclovir, PO letermovir, IV ganciclovir, and PO maribavir. Currently on maribavir 400 mg PO BID with continued viremia. He continued to have CMV viremia despite maribavir with last CMV PCR around 3000. Recentresistance panel shows maribavir and ganciclovir resistance. He was seen in the ID clinic 08/23 due to jaundice, fatigue, fever, diarrhea and fevers. In addition he endorses ALSTON and LE edema. He was recommended inpatient work up for possible intercurrent infection, CMV disease, or possible rejection or relapse of PTLD. Labs and CT imaging requested upon admission. This morning he reports that he is feeling better, does endorses some ALSTON, he denies abdominal pain, N/V/D. Both ID and Liver consults are pending. Oncology History Overview Note PMH: 1. Liver transpant x 2 for acute liver failure (autoimmune hepatitis), 1998 2. 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 Covid vaccines J&J 02/08/21 6. 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 BMBx --> none EBV+ cells otherwise normal, 04/07/17 04/28/2017 - 05/02/2017 Hospital Admission Admit fevers/neutropenia, thrombocytopenia (4k) --> IVIG x 2 (plts 4k --> 230k), steroids, Neupogen 05/03/2017 Initial Diagnosis R cervical LNBx --> PTLD ( early ), FISH --> c-myc+, IGH+. Histologic Type: CD20+, CD10+, Bcl-6+, c-myc+ (90%), JAKOB+, Ki-67 95%, FISH - c-myc+, IGH+, Bcl-2-, Bcl-6-. Stage at diagnosis: EMY. Initial sites of disease: cervical, axill, mesenteric, RP LAD, lungs, bowel. IPI: 3 (stage, # EN sites, LDH) 08/03/2017 Biopsy R cervical LNBx --> JAKOB+ PTLD ( monomorphic ), c-myc+ by FISH 08/19/2017 Imaging Significant Findings PET/CT --> diffuse LAD with R cervical (SUV 41.7), bilat ax, RP, pulm nodules, bowel 08/25/2017 - 12/08/2017 Chemotherapy R-CHOP x 1, EPOCH-R x 5--> MD after C2 (5PS 4), CR p C6 (uptake in small bowel SUV 15) 10/06/2017 - Chemotherapy IT MTX x 1 --> D/c due to severe MANUEL and evidence intracranial hypotention 10/2017 - 12/2017 Hospital Admission Admit: PE, spinal headache --> dc'd on Lovenox, 10/19/17-10/21/17 Admit: neutropenic fever, sepsis, rhinovirus, 11/28/17-12/05/17 Admit: neutropenic fever, rhinovirus, 12/17/17-12/21/17 12/09/2018 Biopsy R cervical LNBx --> florid follicular hyperplasia, JAKOB --> focally+ 03/22/2019 Remission Spontaneous regression 10/10/2019 - 10/13/2019 Hospital Admission Fevers, pneumonia, marked increase in cervical LAD. PET/CT --> diffuse FDG-avid LAD. Cervical LNBx --> reactive, JAKOB- 12/21/2019 - 12/22/2019 Hospital Admission Fever 102, rhino+, ID visit 12/25 still febrile --> Levaquin with resolution 02/02/2020 Biopsy Liver bx of 2.7 cm hyperenehancing lesion seen on MRI --> necrosis, chronic inflammation --> Rx antibiotics x 14 d. Repeat MRI --> slight decrease in enhancing lesion 10/01/[address]-->worsening diffuse cervical lymphadenopathy, extensive abdomenopelvic and chest lymphadenopathy, new groundglass nodules 10/07/2021 Biopsy Left Axillary Bx-->follicular hyperplasia, scattered cells with viral inclusions and small non-necrotizing granulomas, CMV positive 07/09/2022 - 07/12/2022 Hospital Admission Rhino + Adeno, CMV viremia Active Therapy Plans for Beka Lares Hematology: Immune Globulin (GAMUNEX) - 10% (FERNANDEZ ONLY) Current treatment: Treatment 3 (Planned for 12/04/2020) Following planned treatment: Treatment 4 (Planned for 01/01/2021) PAST MEDICAL/SURGICAL HISTORY Past Medical History: Diagnosis Date Cancer (CMS/HCC) (HCC) CMV (cytomegalovirus infection) (HCC) Community acquired pneumonia [...] BIOPSY LYMPH NODE SUPERFICIAL LEFT N/A 10/07/2021 SOCIAL HISTORY Family History Problem Relation Age of Onset Rectal cancer Mother Rectal cancer - (Added by MARIN Conv) Diabetes type II Sister Family history of type 2 diabetes mellitus - (Added by MARIN Conv) Anesthesia problems Other No Known Problems Father Social History Tobacco Use Smoking status: Never Smokeless tobacco: Current Types: Chew Substance and Sexual Activity Drug use: Not Currently Sexual activity: Defer Alcohol Use: Not At Risk (08/28/2022) AUDIT-C Frequency of Alcohol Consumption: 2-4 times a month Average Number of Drinks: 1 or 2 Frequency of Binge Drinking: Never ALLERGIES No Known Allergies MEDICATIONS Medications Prior to Admission Medication Sig Dispense Refill Last Dose acetaminophen (TYLENOL) 500 mg tablet Take 2 tablets (1,000 mg total) by mouth every 6 (six) hours as needed for pain (Patient not taking: Reported on 02/08/2023) 30 tablet 1 budesonide (PULMICORT) 0.5 mg/2 mL nebulizer solution Take 0.5 mg by nebulization daily Rinse mouthwith water after use. Do not swallow. (Patient not taking: Reported on 02/08/2023) maribavir (LIVTENCITY) 200 mg tablet Take 2 tablets (400 mg total) by mouth 2 (two) times a day 28 tablet 0 maribavir (LIVTENCITY) 200 mg tablet Take 2 tablets (400 mg total) by mouth 2 (two) times a day 120tablet 5 tacrolimus (PROGRAF) 0.5 mg immediate-release capsule Take 1 capsule (0.5 mg total) by mouth every other day 15 capsule 11 traZODone (DESYREL) 50 mg tablet Take 1 tablet (50 mg total) by mouth nightly 30 tablet 2 ursodioL (ACTIGALL) 300 mg capsule Take 2 capsules (600 mg total) by mouth daily with dinner 180 capsule 3 Review of Systems: 12 systems reviewed and negative or as per HPI Objective Vitals: BP 121/61 Pulse 95 Temp 37.4 ??C (99.3 ??F) (Oral) Resp 22 Ht 172.7 cm (5' 8 ) Wt 64 kg (141 lb) SpO2 97% BMI 21.44 kg/m?? 24hr Min/Max: Temp Min: 36.9 ??C (98.5 ??F) Max: 37.4 ??C (99.3 ??F) Pulse Min: 84 Max: 104 BP Min: 111/64 Max: 121/61 Resp Min: 16 Max: 22 SpO2 Min: 94 % Max: 98 % Most Recent : Vitals: 08/24/23 1555 BP: 121/61 BP Location: Patient Position: Pulse: 95 Resp: 22 Temp: 37.4 ??C (99.3 ??F) TempSrc: Oral SpO2: 97% Weight: I/O this shift: In: 708 [P.O.:708] Out: 505 [Urine:505] Physical Examination General Appearance: Alert, cooperative, no distress, well appearing. HEENT: Normocephalic Lungs: no audible wheezes or crackles, respirations unlabored Heart: Regular rate and rhythm, Abdomen: Soft, non-tender, non-distended, bowel sounds active Extremities: KEN well, atraumatic, no cyanosis or edema Pulses: 2+ and symmetric Skin: Skin color, texture, turgor normal, no rashes or lesions Neurologic: A&Ox3, Gait not assessed, Strength 5/5 throughout. Sensation to light touch grosslyintact. Psych: mood is euthymic and conversation is appropriate Laboratory Interpretation CBC: Recent Labs Lab Units 08/24/23 0331 WBC K/cumm 14.3* HEMOGLOBIN g/dL 10.4* HEMATOCRIT % 28.4* MCV fL 101.8* NEUTROS ABS K/cumm 7.9* Lab Results Component Value Date GLUCOSE 92 08/24/2023 CALCIUM 7.6 (L) 08/24/2023 SODIUM 136 08/24/2023 POTASSIUM 4.2 08/24/2023 CO2 21 (L) 08/24/2023 CHLORIDE 108 08/24/2023 BUNSER 10 08/24/2023 CREATININE 0.92 08/24/2023 CMP: Recent Labs Lab Units 08/24/23 0331 SODIUM mmol/L 136 POTASSIUM PLASMA mmol/L 4.2 CO2 mmol/L 21* BUN SERUM mg/dL 10 GLUCOSE mg/dL 92 CREATININE mg/dL 0.92 CALCIUM mg/dL 7.6* CHLORIDE mmol/L 108 ALBUMIN g/dL 2.7* AST Units/L 88* ALT Units/L 60* ALK PHOS Units/L 245* BILIRUBIN TOTAL mg/dL 5.2* TOTAL PROTEIN g/dL 4.4* ANIONGAP mmol/L 7 Lab Results Component Value Date MAGNESIUM 1.5 08/24/2023 PHOS 3.4 08/24/2023 PT: Recent Labs Lab Units 08/24/23 0331 PROTIME (PT) sec 17.2* PTT: Recent Labs Lab Units 08/24/23 033 APTT sec 34 A Positive Pathology/Cytology No results found. However, due to the size of the patient record, not all encounters were searched.Please check Results Review for a complete set of results. Imaging Interpretation CT Neck Soft Tissue W Contrast Result Date: 08/23/2023 Redemonstrated findings of multistation diffuse cervical lymphadenopathy 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 Please refer to concurrent CT chest for dedicated chest findings. Dictated by: Morgan Corrales MD The radiology attending physician has personally reviewed this study, and had reviewed and/or edited this written report and agrees with it. Electronically signed by: Karli Blount M.D. CT Chest Abdomen Pelvis W Contrast Result Date: 08/23/2023 1. Extensive lymphadenopathy above and below the diaphragm compatible with known post-transplant lymphoproliferative disorder. While a right axillary and left inguinal lymph node have increased in size from 07/09/2022, the majority of lymph nodes are either stable or slightly decreased in size to prior. 2. New peribronchovascular opacities within the right lung which are favored to be infectious/inflammatory, possibly related to organizing pneumonia. 3. New wall thickening of the ascending colon and terminal ilium compatible with enterocolitis which is nonspecific but may be infectious or inflammatory. 4. Stable postsurgical changes of liver transplant. Electronically signed by: Jadyn Thrasher M.D. CT Neck Soft Tissue W Contrast Result Date: 08/23/2023 Redemonstrated findings of multistation diffuse cervical lymphadenopathy 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 Please refer to concurrent CT chest for dedicated chest findings. Dictated by: Morgan Corrales MD The radiology attending physician has personally reviewed this study, and had reviewed and/or edited this written report and agrees with it. Electronically signed by: Karli Blount M.D. CT Chest Abdomen Pelvis W Contrast Result Date: 08/23/2023 1. Extensive lymphadenopathy above and below the diaphragm compatible with known post-transplant lymphoproliferative disorder. While a right axillary and left inguinal lymph node have increased in size from 07/09/2022, the majority of lymph nodes are either stable or slightly decreased in size to prior. 2. New peribronchovascular opacities within the right lung which are favored to be infectious/inflammatory, possibly related to organizing pneumonia. 3. New wall thickening of the ascending colon and terminal ilium compatible with enterocolitis which is nonspecific but may be infectious or inflammatory. 4. Stable postsurgical changes of liver transplant. Electronically signed by: Jadyn Thrasher M.D. Assessment Jaundice/elevated LFTS LE edema Bili 4.3,->5.2 C/f worsening CMV vs rejection. S/p liver bx was done 08/2022, with no signs of classic acute cellular rejection, s/p IVIG 08/23 CT CAP> New wall thickening of the ascending colon and terminal ilium compatible with enterocolitis nonspecific maybe infectious or inflammatory. New peribronchovascular opacities within theright lung which are favored to be infectious/inflammatory, possibly related to organizing pneumonia. 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 Has been on multiple different therapies including PO valganciclovir, PO letermovir, IV ganciclovir, and PO maribavir with improved CMV levels but continued low level viremia Continued CMV viremia despite maribavir with last CMV PCR around 3000. Recent resistance panel shows maribavir and ganciclovir resistance. -Initiate IV Foscarnet +oral valganciclovir per ID recs -ID c/s appreciate recs GNB bacteremia -source unclear, daily blood cultures until clear -ID consult -Zosyn, Vancomycin 08/23 appreciate primary team care History of liver transplant OLT 03/30/1999 for fulminant autoimmune hepatitis, course c/b PTLD and intermittent CMV viremia. Followed by Dr. Gresham. 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 S/p RCHOP x1 and DA-EPOCH-R x5 (completed 12/2017), IT-MTX C3 only d/t intracranial hypotension, w/ post-C2 MD, CR at end-of treatment. No e/o recurrence though course complicated by multiple episodes of progressive annika opathy w/ spontaneous resolution. -Followed by Dr. Gillespie, on observation, saw at bedside 08/[address] Austin inpatient Oncology attending Cathleen Daniel RN, ANP- Nurse Practitioner Medical Oncology Cosigned by Lorenzo Austin MD PhD at 08/25/2023 4:53 PM CDT * Thaddeus Nguyen MD - 08/24/2023 1:40 PM CDTAssociated Order(s): CONSULT TO GASTROENTEROLOGY - HEPATOLOGY Hepatology Initial Consult Chief complaint: Elevated liver chemistries Reason for consult: No data found Requesting provider: ID HPI: This is a 28 y.o. 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 He is admitted with fever, elevated liver chemistries, worsening lower extremity edema and jaundice. The patient was transplanted in 2008. 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 He has only had intermittent periods of remission on these lines of treatment. A recent CMV resistance panel (07/24) revealed UL 97 L595 mutation (associated with 5-15-fold reduction in GCV effectiveness ) and a T409M Maribavir mutation. He was seen in follow up at [facility] yesterday, at which point he had reported a history of intermittent fevers, abdominal distension, lower extremity edema and jaundice. The patient also states that he has had worsening dyspnea on exertion during the same time frame. He has chronic diarrhea that is stable and no new nausea and vomiting. Also denies any recent travel, tick bites or contact with sick persons. Given his reported symptoms, he was sent to the ER for further management. His VS were stable on arrival. Orthostatic VS were negative. Most recent labs are notable for mild metabolic acidosis ( CO 21) with normal anion gap, elevated SCr from baseline 0.92 ( Baseline: 0.61-0.81), mild hypocalcemia I/so hypoalbuminemia (2.7),elevated liver enzymes (<2ULN): ALP (245), AST( 88), ALT 60, TB 5.2, ( R factor 0.7). There is leukocytosis 14.3 and macrocytic anemia 10.4, nucleated RBCs and shistocytes were present on the smear. UA was remarkable only for an elevated specific gravity. 2/2 blood cultures are positive with one revealing E.coli and the other revealing GNB awaiting speciation. A contrast enhanced CT CAP revealed generalized lymphadenopathy above and below the diaphragm that appear to be overall stable or improved from previous. The liver appeared normal with patent vasculature and without suspicious lesions.No extrahepatic biliary duct dilation was noted. In the chest portion of the CT, there was new wall thickening of the ascending colon with associated mucosal enhancement and submucosal edema c/f enterocolitis. The chest portion revealed new peribronchovascular opacities within the right lung which are favored to be infectious/inflammatory. Of note, the patient has had abnormal liver chemistries for a while. Current labs represent an uptrend in Tbili but no real change in aminotransferases and ALP. Prior work up including MRI abd 2revealed no suspicious lesions. His most recent liver bx 08/2022 revealed sinusoidal lymphocyte predominent infiltrate associated centrivenular and periportal hepatocyte dropout and interface activity, there was diffuse increase in sinusoidal fibrosis with focal bridging fibrosis (confirmed by trichrome stain). CMV and EBV immunostains were negative. In the setting of known h/o of CVID, it was felt that findings may represent a sinusoidal pattern of T-cell mediated rejection as opposed to classi c acute cellular rejection. Patient has been on IVIG administered at home subcutaneously, typicallyat the end of each month. Since admission, he has been started on Zosyn and vancomycin. TTE obtained earlier today revealed normal LV and RV function with a normal IVC that collapsed with inspiration. Diastolic function was normal. Other than mild MR, there was no valvular abnormality seen. Past Medical History: Diagnosis Date Cancer (CMS/HCC) (HCC) CMV (cytomegalovirus infection) (HCC) Community acquired pneumonia [...] BIOPSY LYMPH NODE SUPERFICIAL LEFT N/A 10/07/2021 MEDICATIONS: HOME MEDICATIONS : acetaminophen (TYLENOL) 500 mg tablet budesonide (PULMICORT) 0.5 mg/2 mL nebulizer solution maribavir (LIVTENCITY) 200 mg tablet maribavir (LIVTENCITY) 200 mg tablet tacrolimus (PROGRAF) 0.5 mg immediate-release capsule traZODone (DESYREL) 50 mg tablet ursodioL (ACTIGALL) 300 mg capsule SCHEDULED MEDS CONTINUOUS MEDS PRN MEDS [START ON 08/25/2023] budesonide, 0.5 mg, nebulization, Daily (RT) enoxaparin, 40 mg, subcutaneous, Daily-2100 maribavir, 400 mg, oral, BID piperacillin-tazobactam, 4.5 g, intravenous, Q6H PIPPA sodium chloride 0.9%, 0.5-20 mL, intra-catheter, Q8H PIPPA tacrolimus, 0.5 mg, oral, Every other day ursodioL, 600 mg, oral, Daily with dinner vancomycin, 1,250 mg, intravenous, Q12H sodium chloride 0.9%, 30 mL/hr, Last Rate: 30 mL/hr (08/24/23 0555) acetaminophen sodium chloride 0.9% heparin flush (porcine) heparin flush (porcine) magnesium sulfate magnesium sulfate ondansetron OR ondansetron perflutren protein-a (OPTISON) 3 mL in sodium chloride 0.9% 8 mL syringe potassium chloride ER sodium chloride 0.9% sodium chloride 0.9% sodium chloride 0.9% sodium phosphate - potassium phosphate Medications Prior to Admission Medication Sig Dispense Refill Last Dose acetaminophen (TYLENOL) 500 mg tablet Take 2 tablets (1,000 mg total) by mouth every 6 (six) hours as needed for pain (Patient not taking: Reported on 02/08/2023) 30 tablet 1 budesonide (PULMICORT) 0.5 mg/2 mL nebulizer solution Take 0.5 mg by nebulization daily Rinse mouthwith water after use. Do not swallow. (Patient not taking: Reported on 02/08/2023) maribavir (LIVTENCITY) 200 mg tablet Take 2 tablets (400 mg total) by mouth 2 (two) times a day 28 tablet 0 maribavir (LIVTENCITY) 200 mg tablet Take 2 tablets (400 mg total) by mouth 2 (two) times a day 120tablet 5 tacrolimus (PROGRAF) 0.5 mg immediate-release capsule Take 1 capsule (0.5 mg total) by mouth every other day 15 capsule 11 traZODone (DESYREL) 50 mg tablet Take 1 tablet (50 mg total) by mouth nightly 30 tablet 2 ursodioL (ACTIGALL) 300 mg capsule Take 2 capsules (600 mg total) by mouth daily with dinner 180 capsule 3 No Known Allergies Social History Tobacco Use Smoking status: Never Smokeless tobacco: Current Types: Chew Substance and Sexual Activity Drug use: Not Currently Sexual activity: Defer Alcohol Use: Not At Risk (08/28/2022) AUDIT-C Frequency of Alcohol Consumption: 2-4 times a month Average Number of Drinks: 1 or 2 Frequency of Binge Drinking: Never Family History Problem Relation Age of Onset Rectal cancer Mother Rectal cancer - (Added by MARIN Conv) Diabetes type II Sister Family history of type 2 diabetes mellitus - (Added by MARIN Conv) Anesthesia problems Other No Known Problems Father Review of Systems: Review of systems per HPI and otherwise all other systems are negative Vitals: 24hr Min/Max: Temp Min: 36.9 ??C (98.5 ??F) Max: 36.9 ??C (98.5 ??F) Pulse Min: 84 Max: 104 BP Min: 111/64 Max: 123/62 Resp Min: 16 Max: 20 SpO2 Min: 94 % Max: 98 % Most Recent : Vitals: 08/24/23 1330 BP: Pulse: Resp: Temp: SpO2: 94% I/O last 2 completed shifts: In: - Out: 700 [Urine:700] I/O this shift: In: 708 [P.O.:708] Out: 380 [Urine:380] Objective Physical Exam: General: Well-developed M in NAD. HEENT: NC/AT. EOMI. Jaundice Neck: Supple. No obvious anterior neck masses Lungs: Labored respirations, no audible wheezes, decreased breath sounds in the RML and RLL Heart: RGV, grade 2/6 systolic murmur Abdomen: Soft. Mild RUQ tenderness, Distended with tympanitic percussion note. Ext/MS: No edema, cyanosis, or erythema. Good muscle strength and tone. Neuro: A&O x3. No focal deficits noted. Psych: Appears to have normal affect, mood, judgement, and insight. Skin: No obvious rashes or lesions noted. LABS: Lab Results Component Value Date WBC 14.3 (H) 08/24/2023 WBC 13.8 (H) 08/23/2023 WBC 12.4 (H) 08/23/2023 HGB 10.4 (L) 08/24/2023 HGB 11.6 (L) 08/23/2023 HGB 11.9 (L) 08/23/2023 HCT 28.4 (L) 08/24/2023 HCT 31.8 (L) 08/23/2023 HCT 33.8 (L) 08/23/2023 MCV 101.8 (H) 08/24/2023 MCV 102.6 (H) 08/23/2023 MCV 105.3 (H) 08/23/2023 LABPLAT 252 08/24/2023 LABPLAT 254 08/23/2023 LABPLAT 276 08/23/2023 Lab Results Component Value Date GLUCOSE 92 08/24/2023 CALCIUM 7.6 (L) 08/24/2023 SODIUM 136 08/24/2023 POTASSIUM 4.2 08/24/2023 CO2 21 (L) 08/24/2023 CHLORIDE 108 08/24/2023 BUNSER 10 08/24/2023 CREATININE 0.92 08/24/2023 ANIONGAP 7 08/24/2023 BCR NOT APPLICABLE 05/26/2017 Lab Results Component Value Date ALT 60 (H) 08/24/2023 AST 88 (H) 08/24/2023 ALKPHOS 245 (H) 08/24/2023 BILITOT 5.2 (H) 08/24/2023 Lab Results Component Value Date INR 1.51 (H) 08/24/2023 INR 1.0 08/31/2022 INR 1.1 07/10/2022 Lab Results Component Value Date FERRITIN 366 04/04/2017 IMAGING Results for orders placed during the hospital encounter of 08/07/23 US Liver Transplant with Doppler (C) Narrative EXAMINATION: 1. LIMITED ABDOMINAL SONOGRAM 2. LIVER TRANSPLANT DOPPLER HISTORY: Autoimmune hepatitis status post left julio-liver transplant in childhood, elevated bilirubin COMPARISON: Ultrasound-guided biopsy 08/31/2022, CT abdomen and pelvis 07/05/2022 FINDINGS: LIMITED ABDOMINAL SONOGRAM: Liver: Sonographic evidence of left hemiliver. The hemiliver is normal in size. The echotexture is normal. The echogenicity is normal. There is no surface nodularity. No focal solid lesions are visualized. Gallbladder: The gallbladder is surgically absent. Bile Duct: There is no intrahepatic bile duct dilatation. The diameter of the common duct is 4 mm in the proximal segment and 4 mm in the mid segment and 2 mm in the distal segment. Right Kidney: There is no hydronephrosis in the visualized portions of the right kidney. Pancreas: The visualized portions of the head and body of the pancreas are normal. LIVER TRANSPLANT DOPPLER: Color Doppler and spectral analysis were used to evaluate the hepatic vasculature. Portal veins: The main portal vein as well as the left branch have hepatopetal (antegrade) flow. No thrombosis is visualized. Hepatic veins: The middle, right, and left hepatic veins are patent with antegrade flow. Portosplenic confluence: The portosplenic confluence is patent with appropriate directional flow. Hepatic artery: The main hepatic artery as well as the right and left branches are patent with antegrade flow. The resistive index in the main hepatic artery measures 0.73, and in the left hepatic artery 0.68. The accelerations and acceleration times are normal in the main hepatic artery and branch arteries. IVC: The inferior vena cava at the level of the liver is patent with appropriate directional flow. Impression 1. Sonographic evidence of left hemiliver transplantation. 2. Patent portal and hepatic venous systems. No thrombosis. 3. Patent hepatic arterial system. No thrombosis or stenosis. Dictated by: Marcie Elias MD The radiology attending physician has personally reviewed this study, and had reviewed and/or edited this written report and agrees with it. Electronically signed by: Roland Ogden M.D. 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 TECHNIQUE: CT of the neck was performed according to the standard protocol with intravenous contrast. Contrast information: 35 mL Optiray-350 COMPARISON: 10/01/2021 FINDINGS: Redemonstrated postoperative findings of right submandibular lymph node resection and prior endoscopic sinus surgery. Again seen are numerous enlarged enhancing lymph nodes throughout multiple stations within the neck and mediastinum, some of which have intervally decreased in size (for reference, a previously measured level IIa node now measures approximately 12 mm, previously 16 mm series 3 image 39). Review of the topogram demonstrates no abnormality. The muscles of the neck are normal. Vessels of the neck demonstrate normal course and caliber. Fascial planes are preserved and the deep spaces of the neck are normal. The visualized airway is widely patent. The base of the skull and the temporal bones are normal. Limited views of the brain including the cerebellum and brainstem are normal. The limited view of the [place] is unremarkable. The visualized portions of the orbits are normal. There is near complete opacification of the left maxillary sinus with mild mucosal thickening of the right maxillary, ethmoid, and sphenoid sinuses. There is straightening of the cervical spine with reversal of the normal cervical lordosis. 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 The spinal canal is normal in caliber. Intervertebral disk heights are normal. Neural foramina are normal. For further evaluation of the thorax, see same day chest CT 08/23/2023, including new patchy opacities of the right lung. Impression Redemonstrated findings of multistation diffuse cervical lymphadenopathy 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 Please refer to concurrent CT chest for dedicated chest findings. Dictated by: Morgan Corrales MD The radiology attending physician has personally reviewed this study, and had reviewed and/or edited this written report and agrees with it. Electronically signed by: Karli Blount M.D. Results for orders placed during the hospital encounter of 05/02/22 MRI Abdomen MRCP W WO Contrast Narrative EXAMINATION: 1. MAGNETIC RESONANCE IMAGING OF THE ABDOMEN WITH AND WITHOUT CONTRAST 2. THREE DIMENSIONAL RECONSTRUCTION OF THE BILIARY TREE AND PANCREATIC DUCT HISTORY: 27-year-old male with liver transplant in 2008 complicated by posttransplant lymphoproliferative disorder. Elevated bilirubin. TECHNIQUE: Magnetic resonance imaging of the abdomen was performed prior to and following the uneventful administration of intravenous Gadolinium contrast. The raw data was processed on the scanner by the technologist for 3 dimensional reconstructions of the intrahepatic ducts, extrahepatics ducts, and pancreatic duct. Protocol: Liver MRCP Contrast: gadoterate 125 mL COMPARISON: CT abdomen and pelvis 10/01/2021, MRI liver 02/17/2020 FINDINGS: Liver: There are redemonstrated findings of liver transplantation, with donor left hemiliver overall unchanged in morphology from the prior exam. No steatosis or iron deposition is noted. - Bile ducts: Remain normal in caliber. No evidence of biliary obstruction. - Focal liver lesions: The previously seen hepatic segment 4B rim-enhancing lesion (biopsy proven necrosis and inflammation) has near completely resolved. No new suspicious focal liver lesion. - Vasculature: The left portal and hepatic veins are patent. Pancreas: Normal Spleen: Absent Adrenals: Normal. Kidneys: Normal Other Findings: Enlarged right cardiophrenic lymph node measuring 1.3 cm in short axis (series 25, image 47) is not significantly changed. Enlarged posterior mediastinal lymph node (series 15, image 58) measures 2.0 cm in short axis, unchanged. Multiple enlarged retroperitoneal and mesenteric lymph nodes are unchanged from 10/01/2021. No suspicious osseous lesion. Impression 1. No biliary ductal dilation. 2. 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 No suspicious liver lesion. Dictated by: Bonita Fishman M.D. The radiology attending physician has personally reviewed this study, and had reviewed and/or edited this written report and agrees with it. Electronically signed by: Saul Heath M.D. Results for orders placed during the hospital encounter of 08/07/23 US Liver Transplant with Doppler (C) Narrative EXAMINATION: 1. LIMITED ABDOMINAL SONOGRAM 2. LIVER TRANSPLANT DOPPLER HISTORY: Autoimmune hepatitis status post left julio-liver transplant in childhood, elevated bilirubin COMPARISON: Ultrasound-guided biopsy 08/31/2022, CT abdomen and pelvis 07/05/2022 FINDINGS: LIMITED ABDOMINAL SONOGRAM: Liver: Sonographic evidence of left hemiliver. The hemiliver is normal in size. The echotexture is normal. The echogenicity is normal. There is no surface nodularity. No focal solid lesions are visualized. Gallbladder: The gallbladder is surgically absent. Bile Duct: There is no intrahepatic bile duct dilatation. The diameter of the common duct is 4 mm in the proximal segment and 4 mm in the mid segment and 2 mm in the distal segment. Right Kidney: There is no hydronephrosis in the visualized portions of the right kidney. Pancreas: The visualized portions of the head and body of the pancreas are normal. LIVER TRANSPLANT DOPPLER: Color Doppler and spectral analysis were used to evaluate the hepatic vasculature. Portal veins: The main portal vein as well as the left branch have hepatopetal (antegrade) flow. No thrombosis is visualized. Hepatic veins: The middle, right, and left hepatic veins are patent with antegrade flow. Portosplenic confluence: The portosplenic confluence is patent with appropriate directional flow. Hepatic artery: The main hepatic artery as well as the right and left branches are patent with antegrade flow. The resistive index in the main hepatic artery measures 0.73, and in the left hepatic artery 0.68. The accelerations and acceleration times are normal in the main hepatic artery and branch arteries. IVC: The inferior vena cava at the level of the liver is patent with appropriate directional flow. Impression 1. Sonographic evidence of left hemiliver transplantation. 2. Patent portal and hepatic venous systems. No thrombosis. 3. Patent hepatic arterial system. No thrombosis or stenosis. Dictated by: Marcie Elias MD The radiology attending physician has personally reviewed this study, and had reviewed and/or edited this written report and agrees with it. Electronically signed by: Roland Ogden M.D. Assessment/Plan Impression: In summary, this is a 28 y.o. male with history of autoimmune hepatitis s/p OLT ( 2008)c/b PTLD ( c-Myc, EBV+) s/p CHOP x 1 (2016), DA-EPOCH-R x 5 (09/2017-12/2017) with IT MTX, last chemo 2018, h/o CVID. He is admitted with a one month history of intermittent fevers, chills, lower extremity edema, stable elevated aminotransferases with worsening bili, jaundice and [place] and has since been found to haveE.coli bacteremia. The source of this bacteremia is unclear. There are CT findings c/f possible PNA but Ecoli would chawla unusual causative pathogen. There are also findings concerning for enterocolitis and translocation in this setting could potentially be a source. However, given his progressive jaundice, it is reasonable to first evaluate his biliary tree to rule out cholangitis as a potential source and then proceed to colonoscopy if unrevealing. We note thata TTE has been obtained and shows normal cardiac function. The UA is also negative for protein so the cause of his edema remains unclear at this time Recommendations: -Please obtain MRI/MRCP -Please fractionate bilirubin -Will consider colonoscopy if MRI/MRCP unrevealing - Agree with antibiotic coverage -We will continue home tacrolimus dose - Please monitor tacrolimus trough 30 mins- 1hr prior to dose We will hepatology GI pager . Thank you for involving us in the care of this patient. If you have any questions, please call the hepatology GI pager during weekdays or the [facility] phone during after hours and weekends. Thaddeus Nguyen MD Cosigned by Rafia Bautista MD at 08/24/2023 10:07 PM CDT Associated attestation - Rafia Bautista MD - 08/24/2023 10:07 PM CDT I have seen and examined the patient on 08/24/23. I agree with the findings and plan of care as documented in the resident's/fellow's note.. Mr. Lares has a complex post liver transplantation course with possible mild rejection by liver biopsy 08/2022, now maintained on tacrolimus and ursodiol therapy. He has persistently elevated alk phos with recent normal GGT and fluctuating transaminases. He presents with worsening jaundice in setting of e coli bacteremia but without RUQ tenderness or biliary dilatation on abd CT and ultrasound. His CT does reveal new wall thickening of ascending colon with associated mucosal enhancement and submucosal edema and unchanged dilation of the hepaticojejunallimb. I suspect colitis led to his bacteremia but recommend MRI/MRCP for a more detailed look at his biliary anatomy and to rule out liver abscess. If this imaging is unremarkable, will plan colonoscopy for evaluation of his right colon. I think acute rejection is an unlikely cause of his liver chemistry elevation but I cannot rule outinfiltrative disease/ CMV and will have low threshold to obtain a liver biopsy for further evaluation. I cannot attribute his edema to liver dysfunction at this time. He also complains of dyspnea which may be related to developing pneumonia but recommend bubble study given his clubbing ( although present since childhood per patient). Please check a daily tacrolimus trough level. He may require a higher dose given discontinuation ofmaribavir therapy ( he was on tacrolimus 0.5 mg daily prior to initiation of maribavir therapy). . * Jil Duncan MD - 08/24/2023 10:54 AM CDTAssociated Order(s): CONSULT TO TRANSPLANT INFECTIOUS DISEASE Infectious Disease Initial Consult Note Infectious Disease Team: Transplant Contact Information: Please see [facility] Treatment Team listing for up-to-date contact information. Requesting Physician: Anita Gillespie MD Reason for Consult: Diagnostic and treatment recommendations, as well as assistance with follow up care. Subjective Chief Complaint: Fevers and jaundice . CMV viremia refractory HPI: The patient is a 28 y.o. male with a history of refractory ITP s/p splenectomy in 2012, autoimmune hepatitis s/p liver transplant 03/30/19 c/b PTLD (c-Myc, EBV+) s/p CHOP x 1 (2016), DA-EPOCH-R x 5 (09/2017-12/2017) with IT MTX x/ C3 10/2017 achieving complete remission 12/2017 who has had refractory quantifiable intermittent CMV viremia since 06/2019. He presents with intermittent fevers for past 2 weeks, abdominal distension and jaundice. His bloodcultures x 2 from [facility] yesterday 08/24/23 have revealed a GNB yet to be identified. He denies any lower urinary tract symptoms. He has had around 4-5 episodes of loose stools which are 'soft serve' consistency. No liquid stools or blood in stools. Denies any upper quadrant pain or headaches or visual changes. He has an extensive history of CMV viremia . Please see notes from ID clinic below : He started on IgG treatments 11/2020 and it was decided to restart on PO valganciclovir early 12/2020(delay in starting treatment due to difficulty obtaining medication). Valganciclovir discontinued 03/11/21 due to undetectable CMV levels. He then has some low level viremia intermittently with CMV viral load of 14 on 02/05/21 and undetectable levels on 03/08/21. On 10/01/21 [place] [id number]. He was also noted to have lymphadenopathy [...] levels starting 06/20/22. He was admitted to [facility] 07/09-07/12/22 due to persistent CMV viremia while on marabovir along with 2 week history of cough, fevers, chills, fatigue/malaise. RVP positive for rhinovirus and adenovirus. CMV resistance testing obtained which showed resistance to maribavir. This was discontinued on 07/16/23and he was restarted on Valcyte 900 mg PO BID. CMV levels at OSH on 11/14/22 were 97697. Reached out to patient and it seemed he had been off Valcyte. Restarted therapy that day. He continued to have CMV viremia and on 04/28/23 his valganciclovir was discontinued when resitance testing showed CMV mutation indicating resitance to ganciclovir. He was started on maribavir 400 mg PO BID on 04/28/23. He has been through multiple cycles of Valgan -> IV Ganciclovir . Early this year his CMV viral load reached 19349 (4 log) while on Valgan with some transaminitis (? auto immune hepatitis) . We switched to Maribavir and it came down to 362 (2.5log) in June but now back to 3030 IU/ml (3.48 log). 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 Past Medical History: No date: Cancer (CMS/HCC) (HCC) No date: CMV (cytomegalovirus infection) (HCC) 01/06/2019: [...] NODE SUPERFICIAL LEFT; N/A HOME MEDICATIONS : acetaminophen (TYLENOL) 500 mg tablet budesonide (PULMICORT) 0.5 mg/2 mL nebulizer solution maribavir (LIVTENCITY) 200 mg tablet maribavir (LIVTENCITY) 200 mg tablet tacrolimus (PROGRAF) 0.5 mg immediate-release capsule traZODone (DESYREL) 50 mg tablet ursodioL (ACTIGALL) 300 mg capsule Current Facility-Administered Medications Ordered in Epic Medication Dose Route Frequency Provider Last Rate Last Admin acetaminophen (TYLENOL) tablet 650 mg 650 mg oral Q6H PRN Olena Null MD budesonide (PULMICORT) 0.5 mg/2 mL nebulizer solution 0.5 mg 0.5 mg nebulization Daily Olena Null MD Carrier Fluids for Secondary Infusion - 0.9% Sodium Chloride 30 mL intravenous PRN Olena Null MD enoxaparin (LOVENOX) syringe 40 mg 40 mg subcutaneous Daily-2100 Olena Null MD heparin 10 unit/mL flush 20-50 Units 2-5 mL intra-catheter PRN Olena Null MD heparin 100 unit/mL injection 500 Units 5 mL intra-catheter Once PRN Olena Null MD magnesium sulfate 4 g/100 mL in water (premix) 4 g 4 g intravenous Q4H PRN Olena Null MD Stopped at 08/24/23 0727 magnesium sulfate 6 g in sodium chloride 0.9% 250 mL IVPB 6 g intravenous Q4H PRN Olena Null MD maribavir (LIVTENCITY) tablet 400 mg 400 mg oral BID Olena Null MD 400 mg at 08/24/23 0853 ondansetron (ZOFRAN) tablet 8 mg 8 mg oral Q8H PRN Olena Null MD Or ondansetron (ZOFRAN) injection 8 mg 8 mg intravenous Q8H PRN Olena Null MD perflutren protein-a (OPTISON) 3 mL in sodium chloride 0.9% 8 mL syringe 1-8 mL intravenous Once inimaging Olena Null MD piperacillin-tazobactam (ZOSYN) 3.375 gram/65 mL in sodium chloride 0.9% (premix) 3.375 g 3.375 g intravenous Q6H [facility] Olena Null MD Stopped at 08/24/23 0625 potassium chloride ER (KLOR-CON) extended release tablet 40 mEq 40 mEq oral Q2H PRN Olena Null MD sodium chloride 0.9% flush 0.5-20 mL 0.5-20 mL intra-catheter Q8H PIPPA Olena Null MD 10 mL at 08/24/23 0007 sodium chloride 0.9% flush 0.5-20 mL 0.5-20 mL intra-catheter PRN Olena Null MD sodium chloride 0.9% flush 10 mL 10 mL intra-catheter Once PRN Olena Null MD sodium chloride 0.9% infusion 30 mL/hr intravenous Continuous PRN Olena Null MD 30 mL/hr at1 0555 30 mL/hr at 08/24/23 0555 sodium phosphate - potassium phosphate (K-PHOS NEUTRAL) tablet 500 mg 500 mg oral Daily PRN Olena Null MD tacrolimus immediate-release capsule 0.5 mg 0.5 mg oral Every other day Olena Null MD 0.5 mg at 08/24/23 0853 ursodioL (ACTIGALL) capsule 600 mg 600 mg oral Daily with dinner Olena uNll MD 600 mg at 08/23/23 1831 vancomycin 1,250 mg/262.5 mL in sodium chloride 0.9% (premix) 1,250 mg 1,250 mg intravenous Q12H Olena Null MD Stopped at 08/24/23 0840 No current [facility]-ordered outpatient medications on file. Anti-infectives (From admission, onward) Start Dose/Rate Route Frequency Ordered Stop 08/23/23 2100 maribavir (LIVTENCITY) tablet 400 mg 400 mg oral 2 times daily 08/23/23 1711 08/23/23 1915 vancomycin 1,250 mg/262.5 mL in sodium chloride 0.9% (premix) 1,250 mg 1,250 mg over 60 Minutes intravenous Every 12 hours 08/23/23 1836 08/23/23 1845 piperacillin-tazobactam (ZOSYN) 3.375 gram/65 mL in sodium chloride 0.9% (premix) 3.375 g 3.375 g 130 mL/hr over 30 Minutes intravenous Every 6 hours scheduled 08/23/23 1830 Active Lines/Ports/Devices: Peripheral IV 08/23/23 20 G Left Antecubital (Active) Number of days: 1 Patient Allergies: No Known Allergies Social History Social History Narrative Living Situation: Residential institution 10/05/17 (Added by MARIN Holland) reports that he has never smoked. His smokeless tobacco use includes chew. He reports that he does not currently use drugs. Family history reviewed and non-contributory Family History Problem Relation Age of Onset Rectal cancer Mother Rectal cancer - (Added by MARIN Holland) Diabetes type II Sister Family history of type 2 diabetes mellitus - (Added by MARIN Holland) Anesthesia problems Other No Known Problems Father Review of Systems: Review of Systems All other systems reviewed and are negative. Objective Vitals: 24hr Min/Max: Temp Min: 36.9 ??C (98.5 ??F) Max: 36.9 ??C (98.5 ??F) Pulse Min: 84 Max: 104 BP Min: 111/64 Max: 123/62 Resp Min: 16 Max: 20 SpO2 Min: 96 % Max: 98 % Most Recent : Vitals: 08/24/23 0850 BP: 116/68 Pulse: 95 Resp: 18 Temp: 36.9 ??C (98.5 ??F) SpO2: 96% Vitals: 08/23/23 1935 08/23/23 2000 08/24/23 0605 08/24/23 0850 BP: 121/50 111/64 116/68 BP Location: Right arm Right arm Right arm Patient Position: Sitting Sitting Pulse: 97 104 95 Resp: 18 16 18 Temp: 36.9 ??C (98.5 ??F) 36.9 ??C (98.5 ??F) 36.9 ??C (98.5 ??F) TempSrc: Oral Oral Oral SpO2: 98% 97% 96% Weight: 64 kg (141 lb) Height: I/O last 2 completed shifts: In: - Out: 700 [Urine:700] Physical Exam: Physical Exam Physical Exam Constitutional: General: He is not in acute distress. Appearance: Normal appearance. He is normal weight. He is not ill-appearing or toxic-appearing. HENT: Head: Normocephalic and atraumatic. Eyes: General: Scleral icterus present. Conjunctiva/sclera: Conjunctivae normal. Pupils: Pupils are equal, round, and reactive to light. Cardiovascular: Heart sounds: Normal heart sounds. No murmur heard. Pulmonary: Effort: Pulmonary effort is normal. No respiratory distress. Breath sounds: Normal breath sounds. Abdominal: General: There is distension. Palpations: Abdomen is soft. Tenderness: There is no abdominal tenderness. Musculoskeletal: Right lower leg: Edema present. Left lower leg: Edema present. Skin: General: Skin is warm and dry. Coloration: Skin is jaundiced. Skin is not pale. Neurological: General: No focal deficit present. Mental Status: He is alert and oriented to person, place, and time. Mental status is at baseline. Gait: Gait normal. Psychiatric: Mood and Affect: Mood normal. Behavior: Behavior normal. Thought Content: Thought content normal. Judgment: Judgment normal. Lab/Radiology/Diagnostic Review: I reviewed the following laboratory and imaging result(s). Micro: Lab Results Component Value Date MICROBIOLOGY Preliminary Report: Culture results pending. 08/23/2023 MICROBIOLOGY Preliminary Report: Culture results pending. (.) 08/23/2023 MICROBIOLOGY Preliminary Report: Culture results pending. (.) 08/23/2023 MICROBIOLOGY 07/29/2023 Final Report: For additional result information, see attached scanned report. MICROBIOLOGY (.) 04/19/2023 Final Report: Few Haemophilus influenzae , Beta lactamase negative Rare Mixed skin microorganisms. MICROBIOLOGY 04/19/2023 Final Report: For additional result information, see attached scanned report. MICROBIOLOGY (.) 12/21/2022 Final Report: Few Mixed microorganisms. Includes the following: Few Moraxella catarrhalis , Beta lactamase positive MICROBIOLOGY Final Report: This is the final report. 07/10/2022 MICROBIOLOGY Final Report: No growth 07/09/2022 MICROBIOLOGY Final Report: No growth 07/09/2022 MICROBIOLOGY Final Report: No growth of fungus 07/09/2022 Urinalysis: Resulted in the Past 12 Months 08/23/23 2138 COLORU Yellow CLARITYU Clear SPECGRAVU >1.042* PHURINE 6.5 PROTURQL Negative GLUCOSEUR Negative KETONESU Negative BLOODUR Negative NITRITEU Negative LEUKESTUR Negative Hematology/Chemistry: CBC: Lab Results Component Value Date WBC 14.3 (H) 08/24/2023 HGB 10.4 (L) 08/24/2023 HCT 28.4 (L) 08/24/2023 LABPLAT 252 08/24/2023 NEUTOPHILPCT 55.1 08/24/2023 LYMPHOPCT 26.8 08/24/2023 MONOPCT 13.4 08/24/2023 EOSPCT 3.7 08/24/2023 CMP: Lab Results Component Value Date SODIUM 136 08/24/2023 POTASSIUM 4.2 08/24/2023 CHLORIDE 108 08/24/2023 CO2 21 (L) 08/24/2023 ANIONGAP 7 08/24/2023 GLUCOSE 92 08/24/2023 BUNSER 10 08/24/2023 CREATININE 0.92 08/24/2023 BCR NOT APPLICABLE 05/26/2017 CALCIUM 7.6 (L) 08/24/2023 PROTEIN 5.3 (L) 02/28/2022 ALBUMIN 2.7 (L) 08/24/2023 ALKPHOS 245 (H) 08/24/2023 ALT 60 (H) 08/24/2023 AST 88 (H) 08/24/2023 BILITOT 5.2 (H) 08/24/2023 Creatinine:Estimated Creatinine Clearance: 106.3 mL/min (by Cockcroft-Gault based on SCr of 0.92 mg/dL). Resulted in the Past 12 Months 08/24/23 0331 08/23/23 1747 08/23/23 1021 CREATININE 0.92 0.69* 0.81 Inflammatory Markers: No results for input(s): SEDRATE , CRP in the last 8736 hours. Screening Results RPR:No results found for: LABRPR GC: No results found for: CTRACHOMATIS , NGONORRHOEAE Hepatitis Serologies: Lab Results Component Value Date HEPAIGM Nonreactive 11/30/2017 HEPBSAG Nonreactive 11/30/2017 HEPBSAB Nonreactive 08/18/2017 HEPBCAB Nonreactive 11/30/2017 HEPCAB Nonreactive 11/30/2017 Virologic Testing: HIV Screen: Lab Results Component Value Date [id number] Nonreactive 01/03/2019 CD4:No results found for: CD4ABS , CD4PCT Common Virologic Results: Lab Results Component Value Date [id number] Not Detected 04/06/2017 PPD Negative 01/17/2020 TOXOIGG Negative 12/21/2019 Diagnostics: EKG:No results found for: VR , AR , PRIMSEC , QRSIMSEC , QTIMSEC , QT , PA , RA , TA , DIAG Echo:Results for orders placed during the hospital encounter of 08/23/23 Transthoracic Echo (TTE) Complete W Doppler/CF Narrative Patient name: Beka Lares Date of test: 08/24/2023 Type of test: TTE w/Doppler Hospital #: [id number] Date of : 1995 (M) Tool Inspector: Saige Carrasco [facility] Referring Physician: OLENA NULL MD Contrast Agent: Contrast Administered by: Supervised/Interpreted by: Sharita Colorado MD Diagnosis: Location: [facility] Reason for test: peripheral edema MV Structure: [...] 2=Hypo 3=Akinetic 4=Dyskin./Aneurysm 0=Not visualized) Parasternal Long Flushing:MAS=1 BAS=1 MIL=1 NGUYỄN=1 Parasternal Short Flushing:MAS=1 MIS=1 CA=1 MIL=1 MAL=1 MA=1 Apical 4 Chambers:=1 MIS=1 BIS=1 BAL=1 MAL=1 AL=1 AC=1 Apical 2 Chambers:AI=1 CA=1 BI=1 BA=1 MA=1 AA=1 AC=1 LV Global [...] MD By signing this report, the attending operational review sergeant certifies that he or she has personally supervised and interpreted the echocardiogram and has reviewed and or edited and agrees with the written comments contained within the report. Imaging: CT Neck Soft Tissue W Contrast Result Date: 08/23/2023 Redemonstrated findings of multistation diffuse cervical lymphadenopathy 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 Please refer to concurrent CT chest for dedicated chest findings. Dictated by: Morgan Corrales MD The radiology attending physician has personally reviewed this study, and had reviewed and/or edited this written report and agrees with it. Electronically signed by: Karli Blount M.D. CT Chest Abdomen Pelvis W Contrast Result Date: 08/23/2023 1. Extensive lymphadenopathy above and below the diaphragm compatible with known post-transplant lymphoproliferative disorder. While a right axillary and left inguinal lymph node have increased in size from 07/09/2022, the majority of lymph nodes are either stable or slightly decreased in size to prior. 2. New peribronchovascular opacities within the right lung which are favored to be infectious/inflammatory, possibly related to organizing pneumonia. 3. New wall thickening of the ascending colon and terminal ilium compatible with enterocolitis which is nonspecific but may be infectious or inflammatory. 4. Stable postsurgical changes of liver transplant. Electronically signed by: Jadyn Thrasher M.D. CT Neck Soft Tissue W Contrast Result Date: 08/23/2023 Redemonstrated findings of multistation diffuse cervical lymphadenopathy 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 Please refer to concurrent CT chest for dedicated chest findings. Dictated by: Morgan Corrales MD The radiology attending physician has personally reviewed this study, and had reviewed and/or edited this written report and agrees with it. Electronically signed by: Karli Blount M.D. CT Chest Abdomen Pelvis W Contrast Result Date: 08/23/2023 1. Extensive lymphadenopathy above and below the diaphragm compatible with known post-transplant lymphoproliferative disorder. While a right axillary and left inguinal lymph node have increased in size from 07/09/2022, the majority of lymph nodes are either stable or slightly decreased in size to prior. 2. New peribronchovascular opacities within the right lung which are favored to be infectious/inflammatory, possibly related to organizing pneumonia. 3. New wall thickening of the ascending colon and terminal ilium compatible with enterocolitis which is nonspecific but may be infectious or inflammatory. 4. Stable postsurgical changes of liver transplant. Electronically signed by: Jadyn Thrasher M.D. Assessment/Plan No new Assessment & Plan notes have been filed under this hospital service since the last note was generated. Service: Infectious Disease, Transplant 28 yr old who is OLT x 2, PTLD s/p chemo 4 years ago, currently on tacro ( recent levels subtherapeutic) and prednisone who we have been managing for CMV for the past many years. He has been through multiple cycles of Valgan -> IV Ganciclovir and more recently on Maribavir. Gram negative bacteremia ( likely E coli) / likely secondary to cholangitis He presents with fevers and jaundice. His TB is 5.4 with ALP 240's with slight elevation of liver enzymes. No clear localizations . UA is clear. CT C/A/P - with extensive lymphadenopathy above and below the diaphragm compatible with known PTLD. No IA abscess. No extrahepatic ductal dilatation. - would discuss with hepatology if a MRCP would be helpful in this setting as we do not have a clear source of his GNBacteremia. Would also discuss if they would consider liver biopsy once he clears the bacteremia if the liver parameters do not improve with treatment. (Any augmentation of immunesupression would have an effect on CMV ) . Another source could be gut translocation from enterocolitis. - agree with IV Piperacillin - tazobactam for now awaiting speciation and susceptibilities. Can discontinue IV Vancomycin. 2. 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 We switched to Maribavir and it came down to 362 (2.5log) in June 2023 but now back to 3030 IU/ml (3.48 log). 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 His current CMV level is 2890 (3.46 log). There is no obvious tissue invasive disease ( has some non specific colitis on CT imaging) and the liver derangements could be due to sepsis or CMV or related to rejection. In light of prior mutations (GCV and Maribavir) and uncertainties - - would start on IV Foscarnet 60 mg/kg q8h regimen for induction (3900 mg q8h ) with pre hydration as in order set . Monitor for electrolytes and renal function abnormalities closely. - Add oral valganciclovir 900 mg BID .( He has heterogenous CMV with bold and resistant types) Would like to trend the CMV levels prior to discharge. Would aim to reduce the viremia to a significant level - as patient has had difficulties managing IV medications and being able to come for follow up labs in the past due to work issues. Would also look into prior authorization for Letermovir for prophylaxis once the CMV viremia is suppressed. Thank you for the consultation and allowing us to participate in his care. Transplant ID will continue to follow. Please contact me, contact in EPIC or Transplant ID COMPILATION CLERK for questions Today, I am treating the patient for GN septicemia and CMV viremia which can cause in the short-term future in the absence of appropriate treatment, as described in the note., Independently interpreted test CMV viremi and blood cultures which shows GN bacteremia., Discussed management of CMV and GN nbacteremia with hepatology jewelry consultant and Dr Solano., Discussed test interpretation of CMV with them., Estimated Creatinine Clearance: 106.3 mL/min (by Cockcroft-Gault based on SCr of 0.92 mg/dL). - reviewed; antibiotics recommended above are dosed accordingly., and The patient is being intensively monitored for antimicrobial toxicity from foscarnet and Pip tazobactam with the following tests: CBC and CMP. documented in this encounter Nursing Notes * Nancy Valdez RN - 08/31/2023 4:48 PM CDT Assumed care of patient at 1500. Agreeable with previous nurses assesments and charting. IVIG hung and tolerating. Lasiks given. PICC line placed in Right upper arm. Will start bowel prep at 1700 (when delivered from pharmacy). documented in this encounter Miscellaneous Notes * Plan of Care - Briana Richter RN - 09/03/2023 1:33 PM CDT Teach and return demonstration completed with patient and mother. Education and demonstration provided for Foscarnet administration via Elastomeric and NS bolus infusion via dial a flow tubing, including storage, preparation, administration, trouble shooting, aseptic technique, where to call/what to do for problems. Patient/caregiver instructed and able to verbalize all information presented. Educational material given for infusion procedure. HOME INFUSION PLAN Plan for discharge: 09/03/23 Patient will need to have Foscarnet and hydration today before discharge. Meds will be delivered to home. [facility] will be providing meds. [facility] will be providing Mcfp. SOC 09/04/23. Discharge orders received and forwarded to [facility] and Home Health. Briana Richter RN Proof Reader [facility] [phone] * Plan of Care - Gretchen Hou RN - 09/03/2023 5:57 AM CDT Goals: Clinical Goals for the Shift: VSS, rest Summary: No new concerns overnight; patient eager for discharge. Problem: Health Behavior: Goal: Understanding of discharge needs will improve Outcome: Progressing Problem: Lack of Knowledge Goal: Knowledge of risk factors and measures for prevention condition will improve Outcome: Progressing Problem: Physical Regulation Goal: Spread of further infection will be prevented Outcome: Progressing Goal: Complications related to the disease process, condition, or treatment will be avoided or minimized Outcome: Progressing Problem: Lack of Knowledge Goal: Knowledge of risk factors and measures for prevention of condition will improve Outcome: Progressing Problem: Physical Regulation Goal: Spread of further infection will be prevented Outcome: Progressing Goal: Complications related to the disease process, condition, or treatment will be avoided or minimized Outcome: Progressing * Consults, Subsequent - Kavya Garvey MD - 09/02/2023 5:39 PM CDT Hepatology Subsequent Consult Subjective Interval History: -SINDY, VSS. In good spirits today -Tac trough 5.9 - Colonoscopy done yesterday was normal. Path was normal as well. Objective Physical Exam: Vitals: 24hr Min/Max: Temp Min: 36.7 ??C (98 ??F) Max: 36.9 ??C (98.4 ??F) Pulse Min: 72 Max: 90 BP Min: 111/63 Max: 120/62 Resp Min: 16 Max: 18 SpO2 Min: 95 % Max: 96 % Most Recent : Vitals: 09/02/23 1647 BP: 115/65 Pulse: 72 Resp: 16 Temp: 36.7 ??C (98 ??F) SpO2: 95% General Appearance: Alert, cooperative, no distress. HEENT: Normocephalic, without obvious abnormality, atraumatic. +ve scleral icterus. Neck: No palpable lymphadenopathy. Lungs: Clear to auscultation bilaterally, respirations unlabored Cardiovascular: Regular rate and rhythm, no murmur. Abdomen: Soft, non-tender, mildly distended and slightly tense Extremities: Generalized edema of bilateral lower extremities, hips, arms, appears dependent Skin: No rash Neurologic: Alert and oriented x 4. Psychiatric: Normal mood and affect; in good spirits today I/O last 2 completed shifts: In: 925 [I.V.:100; IV Piggyback:825] Out: 1200 [Urine:1200] I/O this shift: In: 1865 [P.O.:1040; IV Piggyback:825] Out: 1200 [Urine:1200] Lab/Radiology/Diagnostic Review: Recent Labs Lab Units 09/02/23 0315 08/31/23 2325 08/31/23 2115 08/31/23 0237 08/30/23 0347 WBC K/cumm 8.6 -- 9.2 10.3* 11.3* HEMOGLOBIN g/dL 11.1* -- 11.5* 10.5* 11.1* HEMATOCRIT % 30.9* -- 31.9* 28.1* 30.5* PLATELETS K/cumm 212 -- 238 272 269 SODIUM mmol/L 144 -- 145 144 145 POTASSIUM PLASMA mmol/L 4.0 -- 3.8 4.3 4.2 CHLORIDE mmol/L 112* -- 110 112* 115* CO2 mmol/L 25 -- 26 24 25 ANIONGAP mmol/L 7 -- 9 8 5 GLUCOSE mg/dL 142 -- 68* 77 83 POC GLUCOSE MONITOR mg/dL -- 107 -- -- -- BUN SERUM mg/dL 14 -- 11 12 11 CREATININE mg/dL 0.73* -- 0.71* 0.71* 0.79* CALCIUM mg/dL 8.4* -- 8.1* 8.7 8.3* ALBUMIN g/dL 2.4* -- 2.7* 2.4* 2.5* BILIRUBIN TOTAL mg/dL 4.0* -- 5.3* 4.1* 4.7* ALK PHOS Units/L 199* -- 202* 191* 205* ALT Units/L 42 -- 46 45 44 AST Units/L 77* -- 82* 83* 73* INR -- -- 1.42* -- 1.38* Assessment/Plan 28 y.o. 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 He is admitted with a one month history of intermittent fevers, chills, lower extremity edema, stable elevated aminotransferases and ALP with worsening bili, jaundice and ALSTON and was found to have fortune-sensitive E.coli bacteremia. The source of his bacteremia is unclear. MRCP was negative for liver abscess or cholangitis. He has been treated with CTX and has since cleared it. He has also had a significant improvement in his liver chemistries, particularly his ALP since being admitted. Given concern for enterocolitis and possible translocation. There are plans for a colonoscopy with right colon and TI biopsies tomorrow. The patient has already undergone EUS with liver bx and LN bx. There was no evidence of PTLD or CMVon either. There also was no ductular abnormality. There however was e/o lymphocytic infiltrate that could be consistent with atypical rejection alongside some architectural changes. In the light of these findings, his edema is likely secondary to portal hypertension and should be managed with salt restriction and PO diuretics. Going forward, the plan for management of his CMV viremia will dictate his immunosuppression dosing. As of now, he is on foscarnet but should an alternate regimen be recommended per ID, would need tocheck for interaction with tacrolimus and dose adjust as needed. He underwent a colonoscopy which was normal. Path from ileum and colon were normal as well. Recommendations: -Continue tacrolimus dose at 0.5 mg daily ( dose adjustment might be needed if ID recommends regimen that interacts with tacro for mgt of CMViremia) -Please obtain daily tacrolimus ( a true trough is one drawn 30 mins- 1hr prior to dose) - Continue abx coverage per ID recs - Continue diuretics - Consider adjusting lasix to 40 mg daily and adding aldactone 100 mg. Can uptitrate in outpatient setting - Recommend discussing antimicrobial plan with ID as this will affect mgt of immunosuppression going forward We will continue to follow-up with you. Thank you for involving us in the care of this patient. If you have any questions, please call the hepatology GI pager during weekdays or the [facility] phone during after hours and weekends. Kavya Garvey MD Cosigned by Rafia Bautista MD at 09/02/2023 6:53 PM CDT Associated attestation - Rafia Bautista MD - 09/02/2023 6:53 PM CDT I have seen and examined the patient on 09/02/23. I agree with the findings and plan of care as documented in the resident's/fellow's note.. It is unclear if his liver biopsy findings of chronic hepatitis with sinusoidal pattern of lymphocytic infiltrate is related to CVID, atypical cellular rejection or immune mediated hepatitis. However, his liver chemistries are improving with current therapy ( alk phos < 200 for first time since 2019) and his ALT is normal. 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 His elevated t bili is multifactorial in etiology including response to recent bacteremia and hopefully will continue to gradually decrease. The architectural changes and increased fibrosis seen on his biopsy have likely led to portal hypertension and his anasarca ( but not varices by recent EGD/EUS). He should follow a low sodium diet and begin oral diuretic therapy as outlined. * Plan of Care - Crystal Cunha RN - 09/02/2023 9:55 AM CDT Problem: Health Behavior: Goal: Understanding of discharge needs will improve Outcome: Progressing Problem: Lack of Knowledge Goal: Knowledge of risk factors and measures for prevention condition will improve Outcome: Progressing Problem: Physical Regulation Goal: Spread of further infection will be prevented Outcome: Progressing Goal: Complications related to the disease process, condition, or treatment will be avoided or minimized Outcome: Progressing Problem: Lack of Knowledge Goal: Knowledge of risk factors and measures for prevention of condition will improve Outcome: Progressing Problem: Physical Regulation Goal: Spread of further infection will be prevented Outcome: Progressing Goal: Complications related to the disease process, condition, or treatment will be avoided or minimized Outcome: Progressing Goals: Clinical Goals for the Shift: meds, rest, vss VSS, No pain, will continue to monitor * Plan of Care - Sidra Zaidi, YIFAN - 09/02/2023 8:08 AM CDT Pt cont on home regimen. Pulmicort BID, BS clear. RT will cont to monitor. * Plan of Care - Luisa Goldberg RN - 09/01/2023 9:41 PM CDT Problem: Health Behavior: Goal: Understanding of discharge needs will improve Outcome: Progressing Problem: Lack of Knowledge Goal: Knowledge of risk factors and measures for prevention condition will improve Outcome: Progressing Problem: Physical Regulation Goal: Spread of further infection will be prevented Outcome: Progressing Goal: Complications related to the disease process, condition, or treatment will be avoided or minimized Outcome: Progressing Problem: Lack of Knowledge Goal: Knowledge of risk factors and measures for prevention of condition will improve Outcome: Progressing Problem: Physical Regulation Goal: Spread of further infection will be prevented Outcome: Progressing Goal: Complications related to the disease process, condition, or treatment will be avoided or minimized Outcome: Progressing Goals: Clinical Goals for the Shift: meds, rest, vss Summary: * Plan of Care - Karli Crum RN - 09/01/2023 5:21 PM CDT Problem: Health Behavior: Goal: Understanding of discharge needs will improve Outcome: Progressing Problem: Lack of Knowledge Goal: Knowledge of risk factors and measures for prevention condition will improve Outcome: Progressing Problem: Physical Regulation Goal: Spread of further infection will be prevented Outcome: Progressing Goal: Complications related to the disease process, condition, or treatment will be avoided or minimized Outcome: Progressing Problem: Lack of Knowledge Goal: Knowledge of risk factors and measures for prevention of condition will improve Outcome: Progressing Problem: Physical Regulation Goal: Spread of further infection will be prevented Outcome: Progressing Goal: Complications related to the disease process, condition, or treatment will be avoided or minimized Outcome: Progressing Goals: Clinical Goals for the Shift: vss, meds, procedure, safety Summary: vss, meds on hold due to colonoscopy, colonoscopy tolerated and bx pending, safety maintained, denies any pain or discomfort this afternoon, ctm. * Summary of Treatment Recommendations Non-Billable - La Baxter NP - 09/01/2023 9:37 AM CDT Images from the original note were not included. Infectious Diseases Discharge Recommendations for Patients on Custodial IV Antibiotics Diagnosis: CMV viremia, E. Coli bacteremia Retained Infected Hardware (Yes/No/Unclear): No Site of Infection(s): blood Organism(s): CMV & E. coli Antibiotics Start Date: CMV - 08/24 E. Coli - 08/24 PMD: BMT Infectious Disease Team: Transplant Infectious Disease Attending: Prema Duncan Medication Recommendations: Drug(s): Foscarnet 6000mg IV q 12 thru 09/07/23 Valcyte 900mg PO BID Cipro 750mg PO BID thru 09/06/23 Firm Stop (Yes/No): Yes - for Foscarnet & Cipro Anticipated Stop Date (note, the following date does not imply an order to stop on that date): no specified end date at present Labs/Frequency to be Monitored: CBC twice a week , CMP twice a week , and Mag & Phosph 2x/wk, CMV PCR weekly Imaging Recommended Before Follow Up: No Summary of Consultation: 28 yo male with autoimmune hepatitis s/p OLT ' c/b PTLD dx'd 2016, last chemo in 2017 with h/o long-term CMV viremia, currently admitted with abd pain, jaundice, elevated LFTs, and fever. Re: CMV Has h/o varying degrees of CMV since 2019 and is followed by Dr. Duncan in ID clinic. Most recentlypt has been on Maribavir since 04/28/23. - CMV resistance testing (04/21/23) = + mutations GCV (UL97 & UL54) and Cidofovir (UL54) - CMV resistance testing (07/29/23) = + mutations for GCV (UL97) and Maribavir (UL97) Prior to current admission: CMV PCR (04/19) 4,390 - log 3.64 (05/31) 362 - log 2.56 (07/29) 3,030 - log 3.48 (08/23) 2,890 - log 3.46 On admission, pt was changed to Foscarnet and valcyte as he has heterogenous CMV with varying resistant types. Repeat CMV (08/30) was 185 - log 2.27. Pt was found to have E. Coli bacteremia, enterocolitis, and LFT elevation on admission. BC (08/23) E. Coli, (08/24) negative. - CT w/ contrast (08/23) extensive MERCEDES c/w known PTLD, new wall thickening of ascending colon and terminal ileum c/w enterocolitis Liver bx & LN bx were done (08/27) - cx's remain NGTD and final patho is pending but per GI: There was no evidence of PTLD or CMV on either. There also was no ductular abnormality. There however was e/o lymphocytic infiltrate that could be consistent with atypical rejection alongside some architectural changes. Colonoscopy was done (09/01) with normal appearing mucosa & tissue and pathology also showed normal tissue. Will plan to complete 2 wks of Foscarnet , CMV PCR (09/03) is pending. Continue Valcyte indefinitelyat present. Pt will complete 2 wks of tx for E. Coli bacteremia. Follow Up Plan: fax results to [phone], follow up with Dr. Prema Duncan in 2-3 wks, After discharge additional questions can be directed to the clinic at [phone], Patient has been educated about the risks and benefits of IV antibiotics (OPAT), and ID clinic will arrange f/u Important Information for Healthcare Providers: Antibiotic Plan: Antibiotics: Foscarnet IV Cipro oral Valcyte oral Anticipated stop date for IV antibiotics: to be determined Infectious disease physician that saw the patient during hospital admission: Prema Duncan Recommended Laboratory Monitoring: CBC 2x weekly Basic metabolic panel 2x weekly Liver function test 2x weekly Magnesium & phosphorus 2x weekly CMV PCR weekly ALL RESULTS SHOULD BE FAXED TO INFECTIOUS DISEASE CLINIC AT: [phone] PLEASE CALL THE INFECTIOUS DISEASES CLINIC WITH ANY QUESTIONS AT: [phone] Leaving the Hospital on IV Antibiotics Information [...] with antibacterial soap and use alcohol-based hand nuclear fuel processing technician before touching yourcatheter or changing wound dressings. [...] Emergency Room. Contact Infectious Diseases Clinic: Toll-free: [phone] Hospital ID Doctor: Prema Smith [facility] Infectious Diseases Offices [facility] [address], [address] [place] [address] Patient parking available north of [facility] General Infectious Diseases and [facility] Offices [facility] General ID Clinic [address], [address] [place] [address] [facility] ID Clinic [address], [address] [place] [address] * Plan of Care - Sidra Zaidi, CHIEF COMPRESSOR STATION ENGINEER - 09/01/2023 8:51 AM CDT Respiratory Medication Plan Situation: Patient is currently scheduled to receive pulmicort , Daily Home Medications: Current Outpatient Medications Medication Instructions acetaminophen (TYLENOL) 1,000 mg, oral, Every 6 hours PRN budesonide (PULMICORT) 0.5 mg, Daily letermovir (PREVYMIS) 480 mg, oral, Daily maribavir (LIVTENCITY) 400 mg, oral, 2 times daily maribavir (LIVTENCITY) 400 mg, oral, 2 times daily tacrolimus 0.5 mg, oral, Every other day traZODone (DESYREL) 50 mg, oral, Nightly ursodioL (ACTIGALL) 600 mg, oral, Daily with dinner Bronchodilator Assessment Score: 1 Pulmonary Status Negative History, FEV1 > 80% predicted Surgical Status No Surgery Chest X-Ray Clear or Not Indicated Resp Pattern Regular, Respiratory Rate less than or equal to 20 Mental Status Alert, Oriented, Cooperative Cough Strong, Productive Breath Sounds Clear Level of Activity Ambulatory O2 Requirement No Oxygen Oxygen therapy: SpO2 97 % O2 Therapy None (Room air) Pulse Rate: Pre Treatment 72 bpm Post Treatment 78 Respiratory Rate: Pre Treatment 18 bpm Post Treatment 20 Respiratory Assessment: Resp Effort Unlabored Depth & [...] will continue to monitor the patient's progress. * Plan of Care - Bonita Rahman, SHAILESH - 09/01/2023 4:01 AM CDT Goals: Clinical Goals for the Shift: vss, bowel prep, npo after bowel prep, rest Summary: vitals stable, bowel prep completed according to gastroenterology note and stools are clear yellow. Labs drawn and within defined limits for colonoscopy. NPO since bowel prep was completed. Glucose with labs was 68 - juice given and D5W ordered. Abx given. * Consults, Subsequent - Thaddeus Nguyen MD - 08/31/2023 4:45 PM CDT Hepatology Subsequent Consult Subjective Interval History: -SAM CALLAHAN. In good spirits today - Tolerating diuresis -Cr stable, AST 83 (73), ALT 45, ALP 191(205), TB 4.1 (4.7) -CMV PCR repeated; currently at 2.27 log ( down from 3.46) -Tac trough 4.2 - Received last dose of CTX this am; now transitioned to Cipro and remains on flagyl in addition. Objective Physical Exam: Vitals: 24hr Min/Max: Temp Min: 36.5 ??C (97.7 ??F) Max: 36.9 ??C (98.4 ??F) Pulse Min: 77 Max: 85 BP Min: 115/57 Max: 127/64 Resp Min: 16 Max: 20 SpO2 Min: 94 % Max: 98 % Most Recent : Vitals: 08/31/23 1640 BP: 123/71 Pulse: 79 Resp: Temp: 36.7 ??C (98 ??F) SpO2: 95% General Appearance: Alert, cooperative, no distress. HEENT: Normocephalic, without obvious abnormality, atraumatic. +ve scleral icterus. Neck: No palpable lymphadenopathy. Lungs: Clear to auscultation bilaterally, respirations unlabored Cardiovascular: Regular rate and rhythm, no murmur. Abdomen: Soft, non-tender, mildly distended and slightly tense Extremities: Generalized edema of bilateral lower extremities, hips, arms, appears dependent Skin: No rash Neurologic: Alert and oriented x 4. Psychiatric: Normal mood and affect; in good spirits today I/O last 2 completed shifts: In: - Out: 3475 [Urine:3475] I/O this shift: In: - Out: 2225 [Urine:2225] Lab/Radiology/Diagnostic Review: Recent Labs Lab Units 08/31/23 0237 08/30/23 0347 08/29/23 0310 WBC K/cumm 10.3* 11.3* 11.3* HEMOGLOBIN g/dL 10.5* 11.1* 10.9* HEMATOCRIT % 28.1* 30.5* 29.9* PLATELETS K/cumm 272 269 304 SODIUM mmol/L 144 145 144 POTASSIUM PLASMA mmol/L 4.3 4.2 3.8 CHLORIDE mmol/L 112* 115* 112* CO2 mmol/L 24 25 25 ANIONGAP mmol/L 8 5 7 GLUCOSE mg/dL 77 83 77 BUN SERUM mg/dL 12 11 10 CREATININE mg/dL 0.71* 0.79* 0.72* CALCIUM mg/dL 8.7 8.3* 7.9* ALBUMIN g/dL 2.4* 2.5* 2.5* BILIRUBIN TOTAL mg/dL 4.1* 4.7* 4.5* ALK PHOS Units/L 191* 205* 216* ALT Units/L 45 44 47 AST Units/L 83* 73* 71* INR -- 1.38* -- Assessment/Plan 28 y.o. 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 He is admitted with a one month history of intermittent fevers, chills, lower extremity edema, stable elevated aminotransferases and ALP with worsening bili, jaundice and ALSTON and was found to have fortune-sensitive E.coli bacteremia. The source of his bacteremia is unclear. MRCP was negative for liver abscess or cholangitis. He has been treated with CTX and has since cleared it. He has also had a significant improvement in his liver chemistries, particularly his ALP since being admitted. Given concern for enterocolitis and possible translocation. There are plans for a colonoscopy with right colon and TI biopsies tomorrow. The patient has already undergone EUS with liver bx and LN bx. There was no evidence of PTLD or CMVon either. There also was no ductular abnormality. There however was e/o lymphocytic infiltrate that could be consistent with atypical rejection alongside some architectural changes. In the light of these findings, his edema is likely secondary to portal hypertension and should be managed with salt restriction and PO diuretics. Going forward, the plan for management of his CMV viremia will dictate his immunosuppression dosing. As of now, he is on foscarnet but should an alternate regimen be recommended per ID, would need tocheck for interaction with tacrolimus and dose adjust as needed. Recommendations: -Plan for colonoscopy tomorrow- please Keep NPO after MN -Continue tacrolimus dose at 0.5 mg daily ( dose adjustment might be needed if ID recommends regimen that interacts with tacro for mgt of CMViremia) -Please obtain daily tacrolimus ( a true trough is one drawn 30 mins- 1hr prior to dose) - Continue abx coverage per ID recs - Continue diuretics - Consider adjusting lasix to 40 mg daily and adding aldactone 100 mg. Can uptitrate in outpatient setting -Recommend discussing antimicrobial plan with ID as this will affect mgt of immunosuppression goingforward We will continue to follow-up with you. Thank you for involving us in the care of this patient. If you have any questions, please call the hepatology GI pager during weekdays or the [facility] phone during after hours and weekends. Thaddeus Nguyen MD Cosigned by Rafia Bautista MD at 08/31/2023 9:40 PM CDT Associated attestation - Rafia Bautista MD - 08/31/2023 9:40 PM CDT I have seen and examined the patient on 08/31/23. I agree with the findings and plan of care as documented in the resident's/fellow's note.. His liver biopsy and lymph node biopsy did not reveal PTLDand his liver biopsy also had negative CMV staining ( lymph node biopsy CMV stain pending as well as heme path review of his lymph node). His liver biopsy revealed a lymphocyte predominant portal infiltrate but no classic features of rejection. There was an increase in laron sinusoidal fibrosis and findings of PSVD with nodularity/ NRH ( which can be seen in CVID). These architectural changes could lead to non cirrhotic portal hypertension which might be the etiology of his anasarca. Recommend nutrition consult for instruction in 2000 mg sodium restricted diet, titration of diuretics as outlined below. I don't recommend increasing his immunosuppression at present given difficult to control CMV but will reconsider this after treatment of his CMV. * Consults, Subsequent - Lexa Staley MD - 08/31/2023 3:57 PM CDT Images from the original note were not included. GI Update: Plan for colonoscopy tomorrow 09/01/23. Please keep NPO after midnight. Plan: -Maintain adequate IV access -Trend CBC, active T&S q72h, blood consent -Transfuse for Hgb of <7 (Hgb>8 in the setting of ACS/HF/chest pain), plt >50, INR< 2 if able -Plan for Colonoscopy -Keep on CLD for the remainder of today. NPO at MA. -The patient will need golytely split prep as follows: -Starting at 16:00 on 08/31/2023, have the patient drink 8oz portions every 10- 15 minutes until 2L have been consumed. -Starting at or 00:01 on 09/01/2023, have the patient drink the remaining 2L, again as 8oz portions every 10-15 minutes until all has been consumed. If nausea, hold for 30 minutes and resume. -Aim to complete prep prior to 3 AM. -Please have night team check if stools are clear yellow like urine at 3am. If stools are not clearyellow like urine, please have night team STAT order an additional 2 Liters of golytely to be completed by 0500. Please also call pharmacy to bring the golytely STAT. -Check CBC, BMP, and INR the evening prior to procedure. Please have night team ensure Hgb>7 (>8 if patient has chest pain/ACS), plt>50, INR<2, K>3.5. Correct as appropriate and recheck labs STAT. Patient will not get scheduled procedure if these parameters are not met. Sample NF handoff: [ ] 1600: check if pt started golytely [ ] 2100: Hgb >7, plt>50, INR<2, K>3.5 (replete as needed and recheck labs STAT) [ ] 0001: check if pt started remaining 2L golytely [ ] 0300: check if pt completed golytely and stools are clear yellow like urine. If not, please order an additional 2L golytely and call pharmacy to bring golytely STAT [ ] 0500: if stools were not clear at 3am, check if pt has completed golytely and stools are clear yellow like urine Please reference the images below to gauge the quality of bowel prep. Lexa Staley MD Gastroenterology Fellow * Plan of Care - Karli Crum RN - 08/31/2023 2:37 PM CDT Problem: Health Behavior: Goal: Understanding of discharge needs will improve Outcome: Progressing Problem: Lack of Knowledge Goal: Knowledge of risk factors and measures for prevention condition will improve Outcome: Progressing Problem: Physical Regulation Goal: Spread of further infection will be prevented Outcome: Progressing Goal: Complications related to the disease process, condition, or treatment will be avoided or minimized Outcome: Progressing Problem: Lack of Knowledge Goal: Knowledge of risk factors and measures for prevention of condition will improve Outcome: Progressing Problem: Physical Regulation Goal: Spread of further infection will be prevented Outcome: Progressing Goal: Complications related to the disease process, condition, or treatment will be avoided or minimized Outcome: Progressing Goals: Clinical Goals for the Shift: vss, abx, bowel prep Summary: vss, abx, ca glucose administered, IVIG waiting for med, liquid diet, bowel prep order notpresent, ctm. * Consults, Subsequent - La Baxter NP - 08/31/2023 1:44 PM CDT Infectious Disease Daily Progress Subjective Chief complaint: CMV and E. Coli bacteremia 28 yo male with autoimmune hepatitis s/p OLT '09 c/b PTLD dx'd 2017, last chemo in 2018 Interval History: Afebrile. VSS. Room air. Overall feels well. Objective Current Facility-Administered Medications: acetaminophen (TYLENOL) tablet 650 mg, 650 mg, oral, Q6H PRN, Olena Null MD budesonide (PULMICORT) 0.5 mg/2 mL nebulizer solution 0.5 mg, 0.5 mg, nebulization, Daily (RT), Anita Gillespie MD, 0.5 mg at 08/31/23 0826 Carrier Fluids for Secondary Infusion - 0.9% Sodium Chloride, 30 mL, intravenous, PRN, Olena Null MD, 30 mL at 08/28/23 1338 cefTRIAXone (ROCEPHIN) 2,000 mg/20 mL in sterile water (premix) 2,000 mg, 2,000 mg, intravenous, Q24H PIPPA, Karena Mak MD, 2,000 mg at 08/31/23 0810 enoxaparin (LOVENOX) syringe 40 mg, 40 mg, subcutaneous, Daily-2100, Olena Null MD foscarnet (FOSCAVIR) 3,900 mg in sodium chloride 0.9% 325 mL (12 mg/mL) IVPB, 60 mg/kg, intravenous, Q8H PIPPA, Karena Mak MD, Stopped at 08/31/23 1301 furosemide (LASIX) 10 mg/mL injection 60 mg, 60 mg, intravenous, BID DIURETIC, Karena Mak MD, 60 mg at 08/31/23 0810 heparin 10 unit/mL flush 20-50 Units, 2-5 mL, intra-catheter, PRN, Olena Null MD heparin 100 unit/mL injection 500 Units, 5 mL, intra-catheter, Once PRN, Olena Null MD immune globulin (GAMUNEX-C,GAMMAKED) 10 % infusion 25 g, 400 mg/kg ([place]otte), intravenous, Once, Tony Baca MD magnesium oxide (MAG-OX) tablet 400 mg, 400 mg, oral, BID, Karena Mak MD, 400 mg at 08/31/23 0810 magnesium sulfate 2 g/50 mL in water (premix) 2 g, 2 g, intravenous, Once, Tony Baca MD, 2 g at 08/31/23 1302 magnesium sulfate 4 g/100 mL in water (premix) 4 g, 4 g, intravenous, Q4H PRN, Olena Null MD, Stopped at 08/27/23 0737 magnesium sulfate 6 g in sodium chloride 0.9% 250 mL IVPB, 6 g, intravenous, Q4H PRN, Olena Null MD metroNIDAZOLE (FLAGYL) tablet 500 mg, 500 mg, oral, TID, Karena Mak MD, 500 mg at 08/31/23 0810 ondansetron (ZOFRAN) tablet 8 mg, 8 mg, oral, Q8H PRN OR ondansetron (ZOFRAN) injection 8 mg, 8mg, intravenous, Q8H PRN, Olena Null MD perflutren protein-a (OPTISON) 3 mL in sodium chloride 0.9% 8 mL syringe, 1-8 mL, intravenous, Oncein imaging, Olena Null MD potassium chloride ER (KLOR-CON) extended release tablet 20 mEq, 20 mEq, oral, Daily, Karena Mak MD, 20 mEq at 08/31/23 0809 potassium chloride ER (KLOR-CON) extended release tablet 40 mEq, 40 mEq, oral, Q2H PRN, Olena Null MD, 40 mEq at 08/28/23 0500 sodium chloride 0.9% bolus 500 mL, 500 mL, intravenous, Q8H PIPPA, Karena Mak MD, Stoppedat 08/31/23 1301 sodium chloride 0.9% flush 0.5-20 mL, 0.5-20 mL, intra-catheter, Q8H PIPPA, Olena Null MD, 10mL at 08/30/23 1351 sodium chloride 0.9% flush 0.5-20 mL, 0.5-20 mL, intra-catheter, PRN, Olena Null MD sodium chloride 0.9% flush 10 mL, 10 mL, intra-catheter, Once PRN, Olena Null MD sodium chloride 0.9% infusion, 30 mL/hr, intravenous, Continuous PRN, Olena Null MD, Last Rate: 30 mL/hr at 08/28/23 1333, 30 mL/hr at 08/28/23 1333 sodium phosphate - potassium phosphate (K-PHOS NEUTRAL) tablet 250 mg, 250 mg, oral, BID with meals(bkfst, dinner), Karena Mak MD, 250 mg at 08/31/23 0810 sodium phosphate - potassium phosphate (K-PHOS NEUTRAL) tablet 500 mg, 500 mg, oral, Daily PRN, Olena Null MD tacrolimus immediate-release capsule 0.5 mg, 0.5 mg, oral, Daily, Karena Mak MD, 0.5 mgat 08/31/23 0810 ursodioL (ACTIGALL) capsule 600 mg, 600 mg, oral, Daily with dinner, Olena Null MD, 600 mg at 08/30/23 1756 valGANciclovir (VALCYTE) tablet 900 mg, 900 mg, oral, BID, Karena Mak MD, 900 mg at 08/31/23 0810 Temp: [36.6 ??C (97.8 ??F)-36.9 ??C (98.4 ??F)] 36.9 ??C (98.4 ??F) Pulse: [76-84] 78 Resp: [16-20] 16 BP: (115-127)/(57-77) 126/66 Physical Exam: General appearance: weak Head: Normocephalic, without obvious abnormality Eyes: conjunctivae/corneas clear Lungs: decreased Chest wall: normal Heart: RRR Abdomen: Soft, non-tender, + bowel sounds : no dysuria Extremities: no edema Skin: No rashes or lesions Neurologic: Alert and oriented x4, non-focal Lab/Radiology/Diagnostic Review: Recent Labs Lab Units 08/31/23 0237 WBC K/cumm 10.3* HEMOGLOBIN g/dL 10.5* HEMATOCRIT % 28.1* MCV fL 102.6* MCH pg 38.3* MCHC g/dL 37.4* RDW CV % 20.8* RDWSD fL 74.0* MPV fL 12.2 NEUTROS ABS K/cumm 4.7 LYMPHS PCT % 39.7 Recent Labs Lab Units 08/31/23 0237 SODIUM mmol/L 144 POTASSIUM PLASMA mmol/L 4.3 CO2 mmol/L 24 BUN SERUM mg/dL 12 GLUCOSE mg/dL 77 CREATININE mg/dL 0.71* CALCIUM mg/dL 8.7 CHLORIDE mmol/L 112* ALBUMIN g/dL 2.4* AST Units/L 83* ALT Units/L 45 ALK PHOS Units/L 191* BILIRUBIN TOTAL mg/dL 4.1* TOTAL PROTEIN g/dL 4.0* ANIONGAP mmol/L 8 Micro: CMV (08/30) 185 (08/23) 2,890 (07/29) 3,030 Peritoneal fluid (08/27) NGTD Imaging review: Assessment & Plan: 1) E. Coli bacteremia - in setting of new abd pain, jaundice, fever, and elevated LFTs - BC (08/23) E. Coli 2/2, (08/24) negative - CT w/ contrast (08/23) extensive MERCEDES c/w known PTLD, new wall thickening of ascending colon and terminal ileum c/w enterocolitis - liver bx (08/27) = pending - Recommend * await liver pathology * LFTs are improving * plans for colonoscopy tomorrow * continue Ceftriaxone + Flagyl 2) CMV viremia - + CMV viremia of varying degrees since 2019, followed by Dr. Prema Duncan in ID clinic - CMV resistance testing (04/21/23) = + mutations GCV (UL97 & UL54) and Cidofovir (UL54) - CMV resistance testing (07/29/23) = + mutations for GCV (UL97) and Maribavir (UL97) - most recently on Maribavir, since (04/28/23) - Recommend * continue Foscarnet (started 08/24) * continue Valcyte (has heterogenous CMV with bold and resistant types) * will have BMT team look into prior-auth for Letermovir for CMV prophy when viremia is suppressed Discussed abx & plan of care with BMT La Baxter DNP, ANP- - M-F 8am-4pm (ID Transplant Fellow: [phone]) Today, I am treating the patient for bacteremia which can cause sepsis in the short-term future in the absence of appropriate treatment, as described in the note. Discussed management of abx with BMT. Estimated Creatinine Clearance: 147.2 mL/min (A) (by Cockcroft-Gault based on SCr of 0.71 mg/dL (L)). - reviewed; antibiotics recommended above are dosed accordingly. The patient is being intensively monitored for antimicrobial toxicity from Foscarent, Ceftriaxone, Flagyl, Valcyte with the following tests: CBC, CMP weekly for renal & hepatic toxicity & leukopenia/anemia . * Plan of Care - Bonita Rahman RN - 08/31/2023 5:19 AM CDT Goals: Clinical Goals for the Shift: vss, abx, rest, labs Summary: vitals stable, no complaints of pain, abx given, strict intake and output maintained. * Provider Query - Karena Mak MD - 08/30/2023 6:30 PM CDT Specify a diagnosis that reflects the patient???s elevated coagulation studies, and document in themedical record and on the form below. __x_ Coagulopathy ___ Coagulopathy due to liver disease ___ Other, specify below Additional Provider Response: Clinical Indicators/Treatments: -referred from ID clinic due to jaundice, fatigue, fever, and diarrhea - H&P ([place]) Prog. Notes 08/27/23 (Russ Verdugo): hyperbilirubinemia / transaminitis, concern for transplant rejection or PTLD recurrence Latest Reference Range & Units 08/24/23 03:31 PT 10.3 - 13.7 sec 17.2 (H) INR 0.90 - 1.20 1.51 (H) (H): Data is abnormally high Monitoring/TX: -Lab monitoring -Liver biopsy References: From the ICD-10-CM Official Guidelines for Coding and Reporting, use of terms such as likely, suspected, possible, or probable (associated with a specific diagnosis that is being evaluated, monitored, or treated as if it exists) are acceptable and can be coded in the inpatient setting when documented at the time of discharge. This documentation will become part of the patient???s medical record. Respectfully Laci PARKER RN [email or web address] [phone] * Plan of Care - Mary Nevarez RN - 08/30/2023 6:29 PM CDT Goals: Clinical Goals for the Shift: vss, abx, comfort measures, safety Summary: VSS. Abx given as ordered. 60 mg of lasix given. Pt denied any pain. Pt resting comfortably with call light within reach. * Consults, Subsequent - Cleo Ruelas MD - 08/30/2023 5:46 PM CDT Hepatology Subsequent Consult Subjective Interval History: - NAEON. - Complains of worsening swelling, he is uncomfortable - Has raised frustration with the length of hospital stay and wanted some clarification of overall plan Objective Physical Exam: Vitals: 24hr Min/Max: Temp Min: 36.6 ??C (97.8 ??F) Max: 37 ??C (98.6 ??F) Pulse Min: 76 Max: 89 BP Min: 103/60 Max: 121/77 Resp Min: 16 Max: 18 SpO2 Min: 94 % Max: 98 % Most Recent : Vitals: 08/30/23 1605 BP: 121/77 Pulse: 76 Resp: 18 Temp: 36.6 ??C (97.8 ??F) SpO2: 96% General Appearance: Alert, cooperative, no distress. HEENT: Normocephalic, without obvious abnormality, atraumatic. +ve scleral icterus. Neck: No palpable lymphadenopathy. Lungs: Clear to auscultation bilaterally, respirations unlabored Cardiovascular: Regular rate and rhythm, no murmur. Abdomen: Soft, non-tender, mildly distended Extremities: Generalized edema of bilateral lower extremities, hips, arms, appears dependent Skin: No rash Neurologic: Alert and oriented x 4. Psychiatric: Normal mood and affect I/O last 2 completed shifts: In: 1157.9 [IV Piggyback:1157.9] Out: 250 [Urine:250] I/O this shift: In: - Out: 450 [Urine:450] Lab/Radiology/Diagnostic Review: Recent Labs Lab Units 10/30/23 0347 08/29/23 0310 08/28/23 0300 08/25/23 0533 08/24/23 0331 WBC K/cumm 11.3* 11.3* 9.9 < > 14.3* HEMOGLOBIN g/dL 11.1* 10.9* 10.2* < > 10.4* HEMATOCRIT % 30.5* 29.9* 28.0* < > 28.4* PLATELETS K/cumm 269 304 283 < > 252 SODIUM mmol/L 145 144 141 < > 136 POTASSIUM PLASMA mmol/L 4.2 3.8 3.5 < > 4.2 CHLORIDE mmol/L 115* 112* 110 < > 108 CO2 mmol/L 25 25 24 < > 21* ANIONGAP mmol/L 5 7 7 < > 7 GLUCOSE mg/dL 83 77 85 < > 92 BUN SERUM mg/dL 11 10 9 < > 10 CREATININE mg/dL 0.79* 0.72* 0.72* < > 0.92 CALCIUM mg/dL 8.3* 7.9* 6.9* < > 7.6* ALBUMIN g/dL 2.5* 2.5* 2.5* < > 2.7* BILIRUBIN TOTAL mg/dL 4.7* 4.5* 4.8* < > 5.2* ALK PHOS Units/L 205* 216* 227* < > 245* ALT Units/L 44 47 51 < > 60* AST Units/L 73* 71* 78* < > 88* INR 1.38* -- -- -- 1.51* < > = values in this interval not displayed. Assessment/Plan 28 y.o. 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 He is admitted with a one month history of intermittent fevers, chills, lower extremity edema, stable elevated aminotransferases and ALP with worsening bili, jaundice and ALSTON and has since been foundto have E.coli bacteremia. The source of this bacteremia is unclear. There are multiple possibilities including possible translocation I/so enterocolitis, possible bilateral pyelonephritis. There is also e/o multifocal PNA on the CT but E. Coli would be an unusual causative organism. MRCP was negative for liver abscess or cholangitis. Plan to obtain a colonoscopy with right colon and TI biopsies. He underwent EUS with liver bx and LN bx, pending path results. The etiology of his edema also remains unclear, however it does not appear he has significant liverdysfunction that would cause portal hypertension and anasarca. We will review the results of his liver biopsy when it becomes available to assess for presence of significant fibrosis that may predispose this level of edema. Recommendations: -Plan for colonoscopy tentatively Saturday 09/01 - please start a CLD tomorrow -Continue tacrolimus dose to 0.5 mg daily -Please obtain daily tacrolimus ( a true trough is one drawn 30 mins- 1hr prior to dose) - Continue abx coverage - Ok to resume diuretics from our standpoint as patient did have some relief while taking lasix - Recommend discussing antimicrobial plan with ID We will continue to follow-up with you. Thank you for involving us in the care of this patient. If you have any questions, please call the hepatology GI pager during weekdays or the triple GI phone during after hours and weekends. Cleo Ruelas MD Cosigned by Rafia Bautista MD at 08/30/2023 7:07 PM CDT Associated attestation - Rafia Bautista MD - 08/30/2023 7:07 PM CDT I have seen and examined the patient on 08/30/23. I agree with the findings and plan of care as documented in the resident's/fellow's note.. * Plan of Care - Kaelyn Rodriguez RN - 08/30/2023 12:28 PM CDT Per Medical Chart/Rounds/IDR: patient is not medically stable for discharge. Per IDR's, awaiting results of CMV and potential colonoscopy. ADD: 09/01 Plan/referrals made/in place: no referrals have been identified or placed at this time Support following discharge: family/friends Transportation: family/friends F/U Appointments: per oncology Kaelyn Rodriguez, MSN, secondary school teacher librarian For emergent case management needs after 4:30 PM, please call the food packer at telephone number: For weekend and holiday case management needs from the hours of 8:00 AM to 4:30 PM, [facility] at telephone number: For weekend assistance, please check the treatment team in [facility] for the assigned community case manager or contact the weekend Case Management phone at [phone]. * Plan of Care - Marlene Rae RRT - 08/30/2023 9:13 AM CDT Toleration - Patient tolerated without issue.. Bronchial Hygiene Assessment Score - Pulmonary Status Surgical Status Chest X-ray Respiratory Pattern Mental Status Cough Breath Sounds Activity Level O2 Requirement Pt Score Level Suggested Frequency 1-12 1 [...] different recommended therapy or frequency. Plan - Per the bronchial hygiene protocol, the patient's therapy will continue as ordered * Plan of Care - Bonita Rahman RN - 08/30/2023 5:38 AM CDT Goals: Clinical Goals for the Shift: vss, I&Os, rest Summary: vitals stable, no lab replacemetns necessary, no complaints of pain, abx given. * Hospital Course - Karena Mak MD - 08/29/2023 6:19 PM CDT Elevated LFTs Pt jaundiced, ascites, BLE edema. ALT and AST slightly elevated but his bilirubin is higher than baseline. He has been having abnormal liver enzymes: predominantly cholestatic pattern with rising ALT04/2022. 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 During this admission, CT scan showed postsurgical changes of liver transplant, no suspicious liverlesion, no biliary duct dilation, mild pneumobilia and portal and superior mesenteric veins are patent. MRI/MRCP showed stable postsurgical changes of hepatic transplantation without biliary ductal dilation or focal hepatic abnormality. Right colon and terminal ileum enterocolitis. Hepatology was consulted. They had low suspicion for acute liver transplant rejection and suspect colitis. EUS with liver biopsy 08/27, pathology pending . Colonoscopy this admission pending schedule availability . E coli bacteremia Pt reported fevers at home, fatigue, diarrhea, jaundice, abdominal distension and BLE edema. Afebrile and HDS on admission. No lines. Source unclear but suspicion for translocation from enterocolitis. Also potential pna. CT showed new peribronchovascular opacities within the right lung read as potential organizing pneumonia (inflammatory vs infectious) and new wall thickening of the ascending colon and terminal ilium compatible with enterocolitis enterocolitis (inflammatory vs infectious). MRI/MRCP also showing findings concerning for multifocal pne, right colon and terminal enterocolitis. Concern for pyelo mentioned but UA unremarkable. Bcx (08/23) fortune-sensitive E coli x 2 samples. Bcx cleared 08/24. ID consulted. Zozyn (08/23- 08/26) -> ceftriaxone and flagyl (08/26- ). Unable to obtain cultures from liver biopsy as samples already on formalin. Patient was discharged on . Ansarca Pt with progressive BLE edema and ascites over past few weeks. Transaminitis and hyperbilirubinemia. Albumin 3.1. Unclear etiology. Hepatology consulted. Unable to attribute edema to liver dysfunction at this time. TTE with bubbles fairly unremarkable. EF 62%, diastolic function normal, no significant valve disease. BLE dopplers negative for acute DVT. Procedure team evaluated patient for paracentesis 08/27 but not enough fluid. Received some doses of lasix which was discontinued per liver's recommendations. 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 CAP CT: Extensive lymphadenopathy above and below the diaphragm compatible with known post-tra nsplant lymphoproliferative disorder. Aight axillary and left inguinal lymph node have increased insize from 07/09/2022, the majority of lymph nodes are either stable or slightly decreased in size to prior. Stable postsurgical changes of liver transplant. Neck CT: Redemonstrated findings of multistation diffuse cervical lymphadenopathy 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 EUS with liver biopsy and retroperitoneal lymph node FNA for histology and flow cytometry 08/27. Follow up path. Medical oncology consulted. Seen by Dr Gillespie during this admission. Follow up outpatient. History of liver transplant Pt with history of cirrhosis 2/2 autoimmune hepatitis s/p liver transplant (03/2019). 08/07 Liver transplant doppler showed patent arterial, portal and hepatic venous systems. No thrombosis. Tacrolimusdose titrated and discharged on . 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 Recentresistance panel shows maribavir and ganciclovir resistance. CMV PCR stable 2890. Transplant ID consulted. Started foscarnet and valganciclovir (08/24- ). Repeat CMV PCR . Acute superficial DVT of left upper extremity Asymmetric LUE edema. Doppler positive for acute superficial VTE Hypocalcemia and hypomagnesemia Likely 2/2 foscarnet. Patient reported numbness around mouth and bilateral hands most likely symptomatic hypocalcemia. Also noted to have hypomag and hypokalemia. Repleted as needed. Rhinovirus Pt with mild shortness of breath and productive cough. RVP + rhinovirus. Doing well on RA. Supportive care provided. * Plan of Care - Linda Acosta RN - 08/29/2023 5:27 PM CDT Goals: Clinical Goals for the Shift: vss, strict I&Os Summary: vitals remained stable, pt has adequate output and reports partial relief from fluid excess. Lasix were d/cd per liver recs. Awaiting liver biopsy to determine cause of fluid retention. Pt had no complaints of pain throughout shift. Pt is resting in bed with family at bedside at time of this note. * Plan of Care - David Israel RRT - 08/29/2023 7:49 AM CDT Pt is stable receiving daily Pulmicort. Pt tolerates treatment well. Plan to continue with current order and monitor. * Plan of Care - Gretchen Hou RN - 08/29/2023 5:59 AM CDT Problem: Health Behavior: Goal: Understanding of discharge needs will improve Outcome: Progressing Problem: Lack of Knowledge Goal: Knowledge of risk factors and measures for prevention condition will improve Outcome: Progressing Problem: Physical Regulation Goal: Spread of further infection will be prevented Outcome: Progressing Goal: Complications related to the disease process, condition, or treatment will be avoided or minimized Outcome: Progressing Problem: Lack of Knowledge Goal: Knowledge of risk factors and measures for prevention of condition will improve Outcome: Progressing Problem: Physical Regulation Goal: Spread of further infection will be prevented Outcome: Progressing Goal: Complications related to the disease process, condition, or treatment will be avoided or minimized Outcome: Progressing * Plan of Care - Linda Acosta RN - 08/28/2023 6:37 PM CDT Goals: Clinical Goals for the Shift: vss, antibiotics, strict I&Os Summary: vitals stable, antibiotics, Straight cathed pt, 700 ml was obtained. Pt reports feeling more relief and is giving better output after straight cath. Lasix 60mg given 2x. Pt resting in bed with family at bedside * Assessment & Plan Note - Karena Mak MD - 08/28/2023 1:44 PM CDT Associated Problem(s): Acute superficial DVT of left upper extremity - Asymmetric LUE edema. Doppler positive for acute superficial VTE * Consults, Subsequent - Kavya Garvey MD - 08/28/2023 12:19 PM CDT Hepatology Subsequent Consult Subjective Interval History: - NAEON. - Complains of hip pain and swelling - Labs with improved bilirubin 4.8 <-- 5.5, WBC 9.9 <-- 12.5. - He underwent EUS with liver bx and LN FNA. - Paracentesis was planned yesterday but not enough fluid found on US for proceeding. Objective Physical Exam: Vitals: 24hr Min/Max: Temp Min: 36.3 ??C (97.3 ??F) Max: 37.7 ??C (99.9 ??F) Pulse Min: 74 Max: 95 BP Min: 102/57 Max: 133/118 Resp Min: 18 Max: 27 SpO2 Min: 91 % Max: 97 % Most Recent : Vitals: 08/28/23 0833 BP: 116/61 Pulse: 93 Resp: 20 Temp: 37.1 ??C (98.7 ??F) SpO2: 96% General Appearance: Alert, cooperative, no distress. HEENT: Normocephalic, without obvious abnormality, atraumatic. +ve scleral icterus. Neck: No palpable lymphadenopathy. Lungs: Clear to auscultation bilaterally, respirations unlabored Cardiovascular: Regular rate and rhythm, no murmur. Abdomen: Soft, non-tender, mildly distended Extremities: No cyanosis or edema, no clubbing Skin: No rash Neurologic: Alert and oriented x 4. No focal deficits. CN II-XII intact. Psychiatric: Normal mood and affect I/O last 2 completed shifts: In: 1343.3 [I.V.:1343.3] Out: 2300 [Urine:2300] I/O this shift: In: 2995.8 [P.O.:1330; I.V.:1665.8] Out: 1050 [Urine:1050] Lab/Radiology/Diagnostic Review: Recent Labs Lab Units 08/28/23 0300 08/27/23 0331 08/26/23 0304 08/25/23 0533 08/24/23 0331 WBC K/cumm 9.9 12.5* 13.0* < > 14.3* HEMOGLOBIN g/dL 10.2* 10.8* 10.3* < > 10.4* HEMATOCRIT % 28.0* 29.3* 28.3* < > 28.4* PLATELETS K/cumm 283 290 259 < > 252 SODIUM mmol/L 141 140 141 < > 136 POTASSIUM PLASMA mmol/L 3.5 3.8 3.6 < > 4.2 CHLORIDE mmol/L 110 109 112* < > 108 CO2 mmol/L 24 23 22 < > 21* ANIONGAP mmol/L 7 8 7 < > 7 GLUCOSE mg/dL 85 99 79 < > 92 BUN SERUM mg/dL 9 10 10 < > 10 CREATININE mg/dL 0.72* 0.76* 0.86 < > 0.92 CALCIUM mg/dL 6.9* 6.9* 7.3* < > 7.6* ALBUMIN g/dL 2.5* 2.7* 2.6* < > 2.7* BILIRUBIN TOTAL mg/dL 4.8* 5.5* 5.3* < > 5.2* ALK PHOS Units/L 227* 229* 213* < > 245* ALT Units/L 51 53 51 < > 60* AST Units/L 78* 82* 72* < > 88* INR -- -- -- -- 1.51* < > = values in this interval not displayed. 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 He is admitted with a one month history of intermittent fevers, chills, lower extremity edema, stable elevated aminotransferases and ALP with worsening bili, jaundice and ALSTON and has since been foundto have E.coli bacteremia. The source of this bacteremia is unclear. There are multiple possibilities including possible translocation I/so enterocolitis, possible bilateral pyelonephritis. There is also e/o multifocal PNA on the CT but E. Coli would be an unusual causative organism. MRCP was negative for liver abscess or cholangitis. Plan to obtain a colonoscopy with right colon and TI biopsies. He underwent EUS with liver bx and LN bx, pending path results. Recommendations: -Plan for colonoscopy during current admission pending availability on the schedule - Continue tacrolimus dose to 0.5 mg daily -Please obtain daily tacrolimus ( a true trough is one drawn 30 mins- 1hr prior to dose) - Continue abx coverage - Would advise against diuretics as he has minimal ascites and edema We will continue to follow-up with you. Thank you for involving us in the care of this patient. If you have any questions, please call the hepatology GI pager during weekdays or the triple GI phone during after hours and weekends. Kavya Garvey MD Cosigned by Rafia Bautista MD at 08/28/2023 3:11 PM CDT Associated attestation - Rafia Bautista MD - 08/28/2023 3:11 PM CDT The resident/fellow saw and examined the patient, we discussed their findings, and I am in agreement with the plan based on the discussion with the resident/fellow. I did not personally examine the patient. * Plan of Care - David Israel RRT - 08/28/2023 8:09 AM CDT Pt is stable resting on room air. Pt is receiving Pulmicort daily pt tolerates treatment well. [place] continue with current order and monitor. * Plan of Care - Gretchen Hou RN - 08/28/2023 4:13 AM CDT Goals: Clinical Goals for the Shift: VSS, rest Summary: Patient concerned about fluid retention. Problem: Health Behavior: Goal: Understanding of discharge needs will improve Outcome: Progressing Problem: Lack of Knowledge Goal: Knowledge of risk factors and measures for prevention condition will improve Outcome: Progressing Problem: Physical Regulation Goal: Spread of further infection will be prevented Outcome: Progressing Goal: Complications related to the disease process, condition, or treatment will be avoided or minimized Outcome: Progressing Problem: Lack of Knowledge Goal: Knowledge of risk factors and measures for prevention of condition will improve Outcome: Progressing Problem: Physical Regulation Goal: Spread of further infection will be prevented Outcome: Progressing Goal: Complications related to the disease process, condition, or treatment will be avoided or minimized Outcome: Progressing * Plan of Care - Rachel Birch RN - 08/27/2023 5:11 PM CDT Goals: Clinical Goals for the Shift: VSS, safety, possible biopsy, US LUE Summary: US guided parancentesis cancelled today b/c there was not enough fluid. Vein duplex of LUEcompleted today. Liver biopsy done today. No complaints of pain. Regular diet resumed. Abx given. * Assessment & Plan Note - Karena Mak MD - 08/27/2023 8:24 AM CDT Associated Problem(s): Hypocalcemia and hypomagnesemia Likely 2/2 foscarnet. Per report, pt with tingling sensation on LUE and neck. Trop negative and EKGno signs of ischemia. Patient clarified numbness around mouth and bilateral hands most likely symptomatic hypocalcemia. - Received repletion for mg. Started mg-ox 400 q12 hrs. - Continue IV Ca gluc prn as needed. CTM Ca and replete as needed. - CTM Ca, K, Mg and phos and replete as needed * Assessment & Plan Note - Karena Mak MD - 08/27/2023 8:22 AM CDT Associated Problem(s): Tingling of left arm and left side of face (Deleted) Pt developed discomfort and tingling sensation in LUE up to jaw overnight. Asymmetric LUE noted yesterday and doppler orders but pending. Received mg repletion. - EKG last night ___. Trop wnl. - Hypocalcemia noted. Replete - LUE doppler pending - Symptoms resolved * Assessment & Plan Note - Karena Mak MD - 08/27/2023 8:20 AM CDT Associated Problem(s): Rhinovirus Pt with mild shortness of breath and productive cough. RVP + rhinovirus. Doing well on RA - Supportive care * Plan of Care - Sara Burton RN - 08/27/2023 6:21 AM CDT VSS. At 2100 last night patient reported numbness and tingling in both arms moving towards jaw. MD notified. Per MD orders ECG done and troponin high sensitivity lab drawn. Patient now reports no longer feeling numbness or tingling in arms. IV magnesium replacement given. Problem: Health Behavior: Goal: Understanding of discharge needs will improve Outcome: Progressing Problem: Lack of Knowledge Goal: Knowledge of risk factors and measures for prevention condition will improve Outcome: Progressing Problem: Physical Regulation Goal: Spread of further infection will be prevented Outcome: Progressing Goal: Complications related to the disease process, condition, or treatment will be avoided or minimized Outcome: Progressing Problem: Lack of Knowledge Goal: Knowledge of risk factors and measures for prevention of condition will improve Outcome: Progressing Problem: Physical Regulation Goal: Spread of further infection will be prevented Outcome: Progressing Goal: Complications related to the disease process, condition, or treatment will be avoided or minimized Outcome: Progressing Goals: Clinical Goals for the Shift: VSS; Safety; Comfort; Rest * Plan of Care - Rachel Birch RN - 08/26/2023 6:47 PM CDT Goals: Clinical Goals for the Shift: VSS, safety Summary: VSS. MRCP completed today. Pt expressed concern over edema in extremities. Lasix dose increased. US Vein duplex lt upper ext ordered. Plans to hold off on colonoscopy to and will do liver biopsy tomorrow. Abx given per orders. * Consults, Subsequent - Thaddeus Nguyen MD - 08/26/2023 5:31 PM CDT Hepatology Subsequent Consult Subjective Chief complaint of Jaundice Interval History: -SINDY, VSS -ALP downtrending 213 (245), ALT downtrending 51 (57), AST 72 ( 94) T bili lateral 5.3( 5.1) -MRI/MRCP revealed no biliary dilatation, there was however findings concerning for bilateral pyeloand multifocal PNA. There was also ascites noted -Fractionated bili c/w conjugated hyperbilirubinemia - Tac trough subtherapeutic - Culture with fortune-sensitive E.coli- abx coverage switched to CTX and Flagyl - RVP positive Objective Physical Exam: Vitals: 24hr Min/Max: Temp Min: 36.6 ??C (97.8 ??F) Max: 37 ??C (98.6 ??F) Pulse Min: 87 Max: 91 BP Min: 110/64 Max: 119/70 Resp Min: 16 Max: 16 SpO2 Min: 95 % Max: 97 % Most Recent : Vitals: 08/26/23 1600 BP: 119/70 Pulse: 87 Resp: 16 Temp: 36.6 ??C (97.8 ??F) SpO2: 97% General Appearance: Alert, cooperative, no distress. HEENT: Normocephalic, without obvious abnormality, atraumatic. Scleral icterus Neck: No obvious neck masses Lungs: Diminished BS in RML and RLL, respirations labored Cardiovascular: Regular rate and rhythm, 2/6 systolic murmur Abdomen: Soft, non-tender, bowel sounds active all four quadrants, no masses, no organomegaly, distended, dull to percussion Extremities: No cyanosis or edema, digital clubbing Skin: No rash Neurologic: Alert and oriented x 4. No focal deficits. CN II-XII intact. Psychiatric: Normal mood and affect I/O last 2 completed shifts: In: 6527 [P.O.:622; I.V.:5905] Out: 2725 [Urine:2725] I/O this shift: In: - Out: 1999 [Urine:1999] Lab/Radiology/Diagnostic Review: Recent Labs Lab Units 08/26/23 0304 08/25/23 0533 08/24/23 0331 WBC K/cumm 13.0* 13.3* 14.3* HEMOGLOBIN g/dL 10.3* 10.5* 10.4* HEMATOCRIT % 28.3* 28.7* 28.4* PLATELETS K/cumm 259 256 252 SODIUM mmol/L 141 140 136 POTASSIUM PLASMA mmol/L 3.6 5.1* 4.2 CHLORIDE mmol/L 112* 112* 108 CO2 mmol/L 22 21* 21* ANIONGAP mmol/L 7 7 7 GLUCOSE mg/dL 79 83 92 BUN SERUM mg/dL 10 10 10 CREATININE mg/dL 0.86 0.84 0.92 CALCIUM mg/dL 7.3* 6.9* 7.6* ALBUMIN g/dL 2.6* 2.5* 2.7* BILIRUBIN TOTAL mg/dL 5.3* 5.1* 5.2* ALK PHOS Units/L 213* 213* 245* ALT Units/L 51 57* 60* AST Units/L 72* 94* 88* INR -- -- 1.51* Assessment/Plan Active Problems: Cytomegalovirus infection (HCC) History of liver transplant (CMS/HCC) (HCC) Idiopathic thrombocytopenic purpura (HCC) 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 male with history of autoimmune hepatitis s/p OLT ( 2008) c/b PTLD ( c-Myc, EBV+) s/p CHOP x 1 (2016), DA-EPOCH-R x 5 (09/2017- 12/2017) with IT MTX, last chemo 2017, h/o CVID. He is admitted with a one month history of intermittent fevers, chills, lower extremity edema, stable elevated aminotransferases and ALP with worsening bili, jaundice and LASTON and has since been foundto have E.coli bacteremia. The source of this bacteremia is unclear. There are multiple possibilities including possible translocation I/so enterocolitis, possible bilateral pyelonephritis. There is also e/o multifocal PNA on the CT but E. Coli would be an unusual causative organism. MRCP was negative for liver abscess or cholangitis. Plan to obtain a colonoscopy with right colon and TI biopsies. Also considering obtaining a liver biopsy although concern for ACR low at this time. His lower extremity edema remains unexplained. A TTE has been obtained which shows normal cardiac function. His UA is also negative for protein. Given his overall clinical picture, a liver etiology for his edema is unlikely. LE Duplex is negative. Can consider initiating diuretics over next few days. Recommendations: -Plan for colonoscopy during current admission pending availability on the schedule - Could also consider possible EUS guided liver biopsy tomorrow pending input from heme/onc team -Increase tacrolimus dose to 0.5 mg daily -Please obtain daily tacrolimus ( a true trough is one drawn 30 mins- 1hr prior to dose) - Continue abx coverage We will continue to follow-up with you. Thank you for involving us in the care of this patient. If you have any questions, please call the hepatology GI pager during weekdays or the triple GI phone during after hours and weekends. Thaddeus Nguyen MD Cosigned by Rafia Bautista MD at 08/26/2023 8:51 PM CDT Associated attestation - Rafia Bautista MD - 08/26/2023 8:51 PM CDT I have seen and examined the patient on 08/26/23. I agree with the findings and plan of care as documented in the resident's/fellow's note.. Although cholangitis lenta related to his bacteremia may explain his jaundice, it is reasonable to pursue liver biopsy. Will plan EUS guided liver biopsy with possible periportal lymph node biopsy. In addition, recommend diagnostic paracentesis as the etiology of his mild ascites and LE edema remain unknown. * Plan of Care - Trever Morel RN - 08/26/2023 5:27 AM CDT Goals: Clinical Goals for the Shift: VSS, abx, safety Summary: vss. No complaints of pain. Blood cultures drawn. * Plan of Care - Marianela Winchester RN - 08/25/2023 5:55 PM CDT Goals: Clinical Goals for the Shift: VSS, abx, safety Summary: pt denies pain or N/V. IV abx continued as ordered, vanc D/C'd. IV lasix given x1. Resp swab complete, results pending. BLE doppler done. Mobility: UAL, ambulates in room A&O status: x4 Plan: IV abx, MRCP Problem: Health Behavior: Goal: Understanding of discharge needs will improve Outcome: Progressing Problem: Lack of Knowledge Goal: Knowledge of risk factors and measures for prevention condition will improve Outcome: Progressing Problem: Physical Regulation Goal: Spread of further infection will be prevented Outcome: Progressing Goal: Complications related to the disease process, condition, or treatment will be avoided or minimized Outcome: Progressing Problem: Lack of Knowledge Goal: Knowledge of risk factors and measures for prevention of condition will improve Outcome: Progressing Problem: Physical Regulation Goal: Spread of further infection will be prevented Outcome: Progressing Goal: Complications related to the disease process, condition, or treatment will be avoided or minimized Outcome: Progressing * Consults, Subsequent - Thaddeus Nguyen MD - 08/25/2023 8:00 AM CDT Hepatology Subsequent Consult Subjective Chief complaint of Jaundice Interval History: -SINDY VSS -ALP downtrending 213 (245), AST/ALT lateral 94(88)/57(60), T bili stable 5.1( 5.2) - Hypocalcemic, corrected calcium low -MRI/MRCP pending Objective Physical Exam: Vitals: 24hr Min/Max: Temp Min: 36.6 ??C (97.9 ??F) Max: 37.4 ??C (99.3 ??F) Pulse Min: 88 Max: 95 BP Min: 109/62 Max: 121/61 Resp Min: 18 Max: 22 SpO2 Min: 94 % Max: 100 % Most Recent : Vitals: 08/25/23 0505 BP: 109/62 Pulse: 88 Resp: Temp: 36.6 ??C (97.9 ??F) SpO2: 100% General Appearance: Alert, cooperative, no distress. HEENT: Normocephalic, without obvious abnormality, atraumatic. Scleral icterus Neck: No obvious neck masses Lungs: Diminished BS in RML and RLL, respirations labored Cardiovascular: Regular rate and rhythm, 2/6 systolic murmur Abdomen: Soft, non-tender, bowel sounds active all four quadrants, no masses, no organomegaly, distended, tympanitic Extremities: No cyanosis or edema, digital clubbing Skin: No rash Neurologic: Alert and oriented x 4. No focal deficits. CN II-XII intact. Psychiatric: Normal mood and affect I/O last 2 completed shifts: In: 1641 [P.O.:708; I.V.:933] Out: 2315 [Urine:2315] No intake/output data recorded. Lab/Radiology/Diagnostic Review: Recent Labs Lab Units 08/25/23 0533 08/24/23 0331 08/23/23 1747 WBC K/cumm 13.3* 14.3* 13.8* HEMOGLOBIN g/dL 10.5* 10.4* 11.6* HEMATOCRIT % 28.7* 28.4* 31.8* PLATELETS K/cumm 256 252 254 SODIUM mmol/L 140 136 140 POTASSIUM PLASMA mmol/L 5.1* 4.2 5.2* CHLORIDE mmol/L 112* 108 111* CO2 mmol/L 21* 21* 21* ANIONGAP mmol/L 7 7 8 GLUCOSE mg/dL 83 92 89 BUN SERUM mg/dL 10 10 9 CREATININE mg/dL 0.84 0.92 0.69* CALCIUM mg/dL 6.9* 7.6* 8.3* ALBUMIN g/dL 2.5* 2.7* 3.1* BILIRUBIN TOTAL mg/dL 5.1* 5.2* 4.5* ALK PHOS Units/L 213* 245* 263* ALT Units/L 57* 60* 70* AST Units/L 94* 88* 101* INR -- 1.51* -- Assessment/Plan Active Problems: Cytomegalovirus infection (HCC) History of liver transplant (CMS/HCC) (HCC) Idiopathic thrombocytopenic purpura (HCC) 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 male with history of autoimmune hepatitis s/p OLT ( 2008) c/b PTLD ( c-Myc, EBV+) s/p CHOP x 1 (2016), DA-EPOCH-R x 5 (09/2017- 12/2017) with IT MTX, last chemo 2017, h/o CVID. He is admitted with a one month history of intermittent fevers, chills, lower extremity edema, stable elevated aminotransferases and ALP with worsening bili, jaundice and ALSTON and has since been foundto have E.coli bacteremia. The source of this bacteremia is unclear. There are CT findings c/f possible PNA but Ecoli would chawla unusual causative pathogen. There are also findings concerning for enterocolitis and translocation in this setting could potentially be a source. However, given his progressive jaundice, it is reasonable to first evaluate his biliary tree to rule out cholangitis as a potential source and then proceed to colonoscopy if unrevealing. We note thata TTE has been obtained and shows normal cardiac function. The UA is also negative for protein so the cause of his edema remains unclear at this time. It does appear to be improving but in the setting of pelvic lymphadenopathy, would consider obtaining LE Duplex to rule out DVT Recommendations: -Please obtain MRI/MRCP -Please fractionate bilirubin -Plan for colonoscopy on Wednesday, 08/27.Please place on CLD tomorrow -Agree with antibiotic coverage -We will continue home tacrolimus dose for now; dose adjustments per troughs - Please obtain daily tacrolimus ( a true trough is one drawn 30 mins- 1hr prior to dose) - Low threshold for liver biopsy - Please consider LE duplex scan and induced sputum We will continue to follow-up with you. Thank you for involving us in the care of this patient. If you have any questions, please call the hepatology GI pager during weekdays or the triple GI phone during after hours and weekends. Thaddeus Nguyen MD Cosigned by Rafia Bautista MD at 08/25/2023 6:16 PM CDT Associated attestation - Rafia Bautista MD - 08/25/2023 6:16 PM CDT I have seen and examined the patient on 08/25/23. I agree with the findings and plan of care as documented in the resident's/fellow's note.. * Plan of Care - Mary Nevarez RN - 08/24/2023 4:58 PM CDT Goals: Clinical Goals for the Shift: vss, abx, comfort measures, safety Summary: VSS. Pt denied any pain. Pt remained afebrile. Blood cultures drawn and gave abx as ordered. One time dose of lasix given. Bedside echo performed. Pt safety maintained and call light within reach. * Initial Assessments - Leeanna Galan RN - 08/24/2023 3:19 PM CDT CM Initial Assessment Interview Note Information Obtained From: Patient (08/24/23 1445) Admission Source: ID Clinic Impression: 28 y.o. 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 Has been on multiple different therapies including PO valganciclovir, PO letermovir, IV ganciclovir, and PO maribavir. Currently on maribavir 400 mg PO BID with continued viremia. He continued to have CMV viremia despite maribavir with last CMV PCR around 3000. Recent resistance panel shows maribavir and ganciclovir resistance. Plan Includes: consult transplant ID team tomorrow - send stool work up, follow blood cultures that has been already drawn - follow CMV DNA - Add Zosyn and Vancomycin pending blood cultures result. He has fever and leucocytosis - he has been jaundiced lately - ALT and AST slightly elevated but his bilirubin is higher than baseline - CT scan showed Postsurgical changes of liver transplant. No suspicious liver lesion. There is mild pneumobilia. The portal and superior mesenteric veins are patent. - Consult Liver transplant team tomorrow - Continue home Ursodiol Zosyn and Vancomycin for now, get nasal MRSA get stool studies including C. Diff and culture - Start Zosyn Primary Source of Transportation: Does the patient need discharge transport arranged?: No (car per parent) (08/24/231444) Health Insurance Coverage: [employer] (pt employer); [employer] Prescription Coverage: yes Pharmacy: [id number] [address] Primary Care Provider: Beka Nick MD - confirmed Prior to Admission: Functional Status: Independent with ADLs Primary Caregiver: Self Support System: Parent ([phone], [phone]) Home Care Services: No Durable Medical Equipment: None Living Arrangements: Parent Type of Residence: Private residence Steps in home?: Yes, Outside of home, Yes, Inside home Number of steps inside: 12 steps Number of steps outside: 1 steps Medication management: Independent (08/24/231444) Potential discharge needs include: none at this time, cont to follow Dialysis: n/a Behavioral Health Services: Behavioral Health Services: No (08/24/231444) Patient expects to be Discharged to: Private residence, (08/24/231444) Additional Information: Confirmed address and phone to facesheet. Patient independent in ADLs. Parents for assist post-hospitalization/DC needs. Patient's Identified Problem/Goal Problem: Ensure acute medical [...] Collaboration with patient, MD, direct care nurse, Worship Director, and other members of the health care team to assure needed interventions completed. 2. Return patient to optimal level of self-care post discharge. 3. Signal Maintenance Technician will follow for Discharge Planning - interventions as needed 4. Anticipated level of care at discharge 5. Planned Discharge Disposition Based on a comprehensive family assessment, assistance with instrumental activities of daily livingafter discharge will be provided by patient. Through the course of our work I determined that the patient possesses the skill and ability to provide and monitor the care of the patient when he or she returns home. Patient has the capacity to provide/monitor/arrange for the care of the patient. Finally, we determined that patient has the knowledge of available resources and that combining them with their existing resources will suffice to sustain and care for the patient when he or she returns home. The treatment team is aware of this information. All are in agreement with the aftercare plan. 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 - IVIG on 08/31 * Assessment & Plan Note - Karena Mak MD - 08/24/2023 1:25 PM CDT Associated Problem(s): Gram-negative bacteremia Pt reports fevers at home, fatigue, diarrhea, jaundice, abdominal distension and BLE edema. Afebrile and HDS on admission. No lines. Source unclear but suspicion for translocation from enterocolitis.Also potential pna. - CT showed new peribronchovascular [...] liver biopsy as samples already on formalin * Plan of Care - Ankita Ely RN - 08/24/2023 6:36 AM CDT Goals: Clinical Goals for the Shift: VSS, begin abx, rest and safety Summary: VSS through shift, magnesium replaced per lab results. Zosyn and vancomycin given throughout shift. Pt resting in bed comfortably, no complaints of pain, call light in reach. * Plan of Care - Marianela Winchester RN - 08/23/2023 6:58 PM CDT Goals: Clinical Goals for the Shift: orient to unit, plan of care Summary: pt new direct admit for abd distention, jaundice, BLE edema, diarrhea, fevers. Saw ID outpt prior to admit and had CT C/A/P done, blood cultures/labs drawn. Endorses 5+ stools daily and N/V at times after eating. Stool sample sent to lab. Yellow sclera noted. Abdomen distended and taut. Pt also endorses SOB and occasional productive cough. 20G PIV in place from outpt, + blood return and flushes easily. Mother at bedside. Mobility: UAL, ambulates in room A&O status: x4 Plan: admission, I/O monitoring, abx Problem: Health Behavior: Goal: Understanding of discharge needs will improve Outcome: Progressing * Assessment & Plan Note - Tony Baca MD - 08/23/2023 6:43 PM CDT Associated Problem(s): Ansarca Pt with progressive BLE edema and ascites [...] IV BID-> lasix 40 and spironolactone 100mg * Assessment & Plan Note - Karena Mak MD - 08/23/2023 6:34 PM CDT Associated Problem(s): Macrocytic anemia - B12 WNL. Folate pending. * Assessment & Plan Note - Olena Null MD - 08/23/2023 6:33 PM CDT Associated Problem(s): Organizing pneumonia (CMS/HCC) (HCC) (Deleted) Ct chest showed New peribronchovascular opacities within the right lung which are favored to be infectious/inflammatory, possibly related to organizing pneumonia. 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 - get stool studies including C. Diff and culture - Start Zosyn * Assessment & Plan Note - Olena Null MD - 08/23/2023 6:28 PM CDT Associated Problem(s): Eustachian tube dysfunction, bilateral status post endoscopic sinus surgery (bilateral maxillary antrostomy, total ethmoidectomy, frontal sinusotomy, and sphenoidotomy) and septoplasty on 08/28/2022 for chronic rhinosinusitis and recurrent acute exacerbations. * Assessment & Plan Note - Karena Mak MD - 08/23/2023 6:27 PM CDT Associated Problem(s): History of liver transplant (CMS/HCC) (HCC) Pt with history of cirrhosis 2/2 autoimmune hepatitis s/p liver transplant (03/2019). 08/07 Liver transplant doppler showed patent arterial, portal and hepatic venous systems. No thrombosis. - Increased tacrolimus dose at 0.5 mg every other day -> daily. Daily tacro levels. * Assessment & Plan Note - Tony Baca MD - 08/23/2023 6:24 PM CDT Associated Problem(s): Elevated LFTs He has been having abnormal liver enzymes: [...] with negative path - Continue home Ursodiol * Assessment & Plan Note - Karena Mak MD - 08/23/2023 6:17 PM CDT Associated Problem(s): Idiopathic thrombocytopenic purpura (HCC) s/p splenectomy in 2013. Platelets wnl now. * Assessment & Plan Note - Tony Baca MD - 08/23/2023 6:16 PM CDT Associated Problem(s): Cytomegalovirus infection (HCC) He continued to have CMV viremia despite maribavir with last CMV PCR around 3000 on 07/29/23. Recentresistance panel shows maribavir and ganciclovir resistance. CMV PCR stable 2890. - Transplant ID following. Started foscarnet and valganciclovir (08/24- ). - Repeat CMV PCR 185. * Assessment & Plan Note - Olena Null MD - 08/23/2023 5:48 PM CDT Associated Problem(s): Fever in adult (Resolved 08/24/2023) ?CMV * Assessment & Plan Note - Olena Null MD - 08/23/2023 5:47 PM CDT Associated Problem(s): Fever in adult (Resolved 08/24/2023) intermittent CMV viremia since 06/2019. Has been on multiple different therapies including PO valganciclovir, PO letermovir, IV ganciclovir, and PO maribavir. Currently on maribavir 400 mg PO BID withcontinued viremia. He continued to have CMV viremia despite maribavir with last CMV PCR around 3000on 07/29/23. Recent resistance panel shows maribavir and [...] cultures result. He has fever and leucocytosis documented in this encounter Plan of Treatment Pending Results Name Type Priority Associated Diagnoses Date/Time Vitamin B12 Lab STAT 08/23/2023 5:47 PM CDT Folate Lab STAT 08/23/2023 5:47 PM CDT TSH reflex to free T4 Lab STAT 5:47 PM CDT Aerobic and anaerobic cultur e and gram stain Peritoneal fluid Peritoneum Microbiology Routine 08/27/2023 11:27 AM CDT Mycology (fungal) culture an d stain Peritoneal fluid Peritoneum Microbiology Routine 08/27/2023 11:27 AM CDT ESOPHAGOGASTRODUODENOSCOPY ENDOSCOPIC ULTRASOUND Endo Imaging Procedure IP Routine History of liver transplant (CMS/HCC) (HCC) 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 difficile testing Stool Microbiology Routine Once for 1 Occurrences starting 08/24/2023 until 08/24/2023 Pneumonia PCR with aerobic culture and Gram stain Sputum, induced Microbiology Routine Once for 1 Occurrences starting 08/26/2023 until 08/26/2023 Aerobic and anaerobic culture and gram stain Peritoneal fluid Peritoneum Microbiology Routine Once for 1 Occurrences starting 08/27/2023 until 08/27/2023 Mycology (fungal) culture and stain Peritoneal fluid Peritoneum Microbiology Routine Once for 1 Occurrences starting 08/27/2023 until 08/27/2023 IgG Lab Routine Once for 1 Occurrences starting 08/31/2023 until 08/31/2023 Uric acid Lab Routine Once for 1 Occurrences starting 09/02/2023 until 09/02/2023 Lactate dehydrogenase (LD) Lab Routine Once for 1 Occurrences starting 09/02/2023 until 09/02/2023 Scheduled Procedures Name Priority Associated Diagnoses Date/Ti me COLONOSCOPY Encounter for screening for colorectal cancer in high risk patient Family history of rectal cancer documented as of this encounter Procedures Procedure Name Priority Date/Time Associated Diagnosis Comments CYTOMEGALOVIRUS (CMV) DNA, QUANT GEN LAB Routine 09/03/2023 3:01 AM CDT EGFR Routine 09/03/2023 3:01 AM CDT DIFFERENTIAL AUTO Routine 09/03/2023 3:0 1 AM CDT TACROLIMUS LEVEL, TROUGH Routine 09/03/2023 3:01 AM CDT CBC WITH AUTO DIFFERENTIAL Routine 09/03/2023 3:01 AM CDT PHOSPHORUS Routine 09/03/2023 3:01 AM CDT MAGNESIUM Routine 09/03/2023 3:01 AM CDT HEPATIC FUNCTION PANEL Routine 3:01 AM CDT BASIC METABOLIC PANEL Routine 09/03/2023 3:01 AM CDT EGFR Routine 09/02/2023 3:15 AM CDT DIFFERENTIAL AUTO Routine 09/02/2023 3:1 5 AM CDT TACROLIMUS LEVEL, TROUGH Routine 09/02/2023 3:15 AM CDT CBC WITH AUTO DIFFERENTIAL Routine 09/02/2023 3:15 AM CDT TYPE AND SCREEN Timed 09/02/2023 3:15 AM CDT URIC ACID Routine 09/02/2023 3:15 AM CDT PHOSPHORUS Routine 09/02/2023 3:15 AM CDT MAGNESIUM Routine 09/02/2023 3:15 AM CDT LACTATE DEHYDROGENASE Routine 09/02/2023 3:15 AM CDT HEPATIC FUNCTION PANEL Routine 3:15 AM CDT BASIC METABOLIC PANEL Routine 09/02/2023 3:15 AM CDT SURGICAL PATHOLOGY Routine 09/01/2023 4: 02 PM CDT Colitis COLONOSCOPY 09/01/2023 3:45 PM CDT COLON BIOPSY 09/01/2023 3:38 PM CDT Colitis POCT GLUCOSE DEVICE Routine 08/31/2023 11:25 PM CDT EGFR Routine 08/31/2023 9:15 PM CDT DIFFERENTIAL AUTO Routine 08/31/2023 9:1 5 PM CDT TACROLIMUS LEVEL, TROUGH Routine 08/31/2023 9:15 PM CDT CBC WITH AUTO DIFFERENTIAL Routine 08/31/2023 9:15 PM CDT PROTIME-INR Routine 08/31/2023 9:15 PM CDT PHOSPHORUS Routine 08/31/2023 9:15 PM CDT MAGNESIUM Routine 08/31/2023 9:15 PM CDT HEPATIC FUNCTION PANEL Routine 9:15 PM CDT BASIC METABOLIC PANEL Routine 08/31/2023 9:15 PM CDT ECG 12-LEAD Routine 08/31/2023 3:15 PM CDT EGFR Routine 08/31/2023 2:37 AM CDT DIFFERENTIAL AUTO Routine 08/31/2023 2:3 7 AM CDT TACROLIMUS LEVEL, TROUGH Routine 08/31/2023 2:37 AM CDT CBC WITH AUTO DIFFERENTIAL Routine 08/31/2023 2:37 AM CDT PHOSPHORUS Routine 08/31/2023 2:37 AM CDT MAGNESIUM Routine 08/31/2023 2:37 AM CDT IGG Routine 08/31/2023 2:37 AM CDT HEPATIC FUNCTION PANEL Routine 2:37 AM CDT BASIC METABOLIC PANEL Routine 08/31/2023 2:37 AM CDT CYTOMEGALOVIRUS (CMV) DNA, QUANT GEN LAB Routine 08/30/2023 3:47 AM CDT EGFR Routine 08/30/2023 3:47 AM CDT DIFFERENTIAL AUTO Routine 08/30/2023 3:4 7 AM CDT TACROLIMUS LEVEL, TROUGH Routine 08/30/2023 3:47 AM CDT CBC WITH AUTO DIFFERENTIAL Routine 08/30/2023 3:47 AM CDT APTT Routine 08/30/2023 3:47 AM CDT PROTIME-INR Routine 08/30/2023 3:47 AM CDT TYPE AND SCREEN Timed 08/30/2023 3:47 AM CDT URIC ACID Routine 08/30/2023 3:47 AM CDT PHOSPHORUS Routine 08/30/2023 3:47 AM CDT MAGNESIUM Routine 08/30/2023 3:47 AM CDT LACTATE DEHYDROGENASE Routine 08/30/2023 3:47 AM CDT HEPATIC FUNCTION PANEL Routine 3:47 AM CDT BASIC METABOLIC PANEL Routine 08/30/2023 3:47 AM CDT EGFR Routine 08/29/2023 3:10 AM CDT DIFFERENTIAL AUTO Routine 08/29/2023 3:1 0 AM CDT TACROLIMUS LEVEL, TROUGH Routine 08/29/2023 3:10 AM CDT CBC WITH AUTO DIFFERENTIAL Routine 08/29/2023 3:10 AM CDT PHOSPHORUS Routine 08/29/2023 3:10 AM CDT MAGNESIUM Routine 08/29/2023 3:10 AM CDT HEPATIC FUNCTION PANEL Routine 3:10 AM CDT BASIC METABOLIC PANEL Routine 08/29/2023 3:10 AM CDT EGFR Routine 08/28/2023 3:00 AM CDT DIFFERENTIAL AUTO Routine 08/28/2023 3:0 0 AM CDT TACROLIMUS LEVEL, TROUGH Routine 08/28/2023 3:00 AM CDT CBC WITH AUTO DIFFERENTIAL Routine 08/28/2023 3:00 AM CDT PHOSPHORUS Routine 08/28/2023 3:00 AM CDT MAGNESIUM Routine 08/28/2023 3:00 AM CDT HEPATIC FUNCTION PANEL Routine 3:00 AM CDT BASIC METABOLIC PANEL Routine 08/28/2023 3:00 AM CDT MD ABDOM PARACENTESIS DX/THER W/IMAGING GUIDANCE Routine 08/27/2023 2:24 PM CDT 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) US ENDOSCOPIC IP Routine 08/27/2023 2:11 PM CDT History of liver transplant (CMS/HCC) (HCC) 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) Jaundice FLOW LEUKEMIA/LYMPHOMA Timed 1:59 PM CDT FLOW LEUKEMIA/LYMPHOMA Routine 1:48 PM CDT SURGICAL PATHOLOGY Routine 08/27/2023 1: 48 PM CDT History of liver transplant (CMS/HCC) (HCC) 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) Jaundice US VEIN DUPLEX UPPER EXTREMITY LEFT LIMITED IP Routine 08/27/2023 1:24 PM CDT EUS 08/27/2023 1:02 PM CDT EGFR Routine 08/27/2023 3:31 AM CDT DIFFERENTIAL AUTO Routine 08/27/2023 3:3 1 AM CDT TACROLIMUS LEVEL, TROUGH Routine 08/27/2023 3:31 AM CDT CBC WITH AUTO DIFFERENTIAL Routine 08/27/2023 3:31 AM CDT PHOSPHORUS Routine 08/27/2023 3:31 AM CDT MAGNESIUM Routine 08/27/2023 3:31 AM CDT HEPATIC FUNCTION PANEL Routine 3:31 AM CDT BASIC METABOLIC PANEL Routine 08/27/2023 3:31 AM CDT TROPONIN I HIGH-SENSITIVITY STAT 08/26/2023 10:31 PM CDT MRI ABDOMEN MRCP W WO CONTRAST INCL 3D (C) IP Routine 08/26/2023 10:10 AM CDT BLOOD CULTURE Routine 08/26/2023 3:23 AM CDT BLOOD CULTURE Routine 08/26/2023 3:14 AM CDT EGFR Routine 08/26/2023 3:04 AM CDT DIFFERENTIAL AUTO Routine 08/26/2023 3:0 4 AM CDT TACROLIMUS LEVEL, TROUGH Routine 08/26/2023 3:04 AM CDT CBC WITH AUTO DIFFERENTIAL Routine 08/26/2023 3:04 AM CDT TYPE AND SCREEN Timed 08/26/2023 3:04 AM CDT URIC ACID Routine 08/26/2023 3:04 AM CDT PHOSPHORUS Routine 08/26/2023 3:04 AM CDT MAGNESIUM Routine 08/26/2023 3:04 AM CDT LACTATE DEHYDROGENASE Routine 08/26/2023 3:04 AM CDT VANCOMYCIN LEVEL TROUGH Routine 08/26/2023 3:04 AM CDT HEPATIC FUNCTION PANEL Routine 3:04 AM CDT BASIC METABOLIC PANEL Routine 08/26/2023 3:04 AM CDT RESPIRATORY PATHOGEN PANEL Routine 08/25/2023 5:34 PM CDT US VEIN DUPLEX LOWER EXTREMITY BILATERAL COMPLETE IP Routine 08/25/2023 4:32 PM CDT VANCOMYCIN LEVEL TROUGH Routine 08/25/2023 5:34 AM CDT EGFR Routine 08/25/2023 5:33 AM CDT DIFFERENTIAL AUTO Routine 08/25/2023 5:3 3 AM CDT TACROLIMUS LEVEL, TROUGH Routine 08/25/2023 5:33 AM CDT CBC WITH AUTO DIFFERENTIAL Routine 08/25/2023 5:33 AM CDT MANUAL DIFFERENTIAL Routine 08/25/2023 5 :33 AM CDT PHOSPHORUS Routine 08/25/2023 5:33 AM CDT MAGNESIUM Routine 08/25/2023 5:33 AM CDT HEPATIC FUNCTION PANEL Routine 5:33 AM CDT BASIC METABOLIC PANEL Routine 08/25/2023 5:33 AM CDT BLOOD CULTURE Routine 08/24/2023 11:09 AM CDT BLOOD CULTURE Routine 08/24/2023 11:09 AM CDT TRANSTHORACIC ECHO (TTE) COMPLETE W DOPPLER/CF WO CONTRAST Routine 08/24/2023 10:26 AM CDT EGFR Routine 08/24/2023 3:31 AM CDT DIFFERENTIAL AUTO Routine 08/24/2023 3:3 1 AM CDT CBC WITH AUTO DIFFERENTIAL Routine 08/24/2023 3:31 AM CDT APTT Routine 08/24/2023 3:31 AM CDT PROTIME-INR Routine 08/24/2023 3:31 AM CDT TYPE AND SCREEN Timed 08/24/2023 3:31 AM CDT URIC ACID Routine 08/24/2023 3:31 AM CDT PHOSPHORUS Routine 08/24/2023 3:31 AM CDT MAGNESIUM Routine 08/24/2023 3:31 AM CDT LACTATE DEHYDROGENASE Routine 08/24/2023 3:31 AM CDT COMPREHENSIVE METABOLIC PANEL Routine 08/24/2023 3:31 AM CDT MRSA ONLY (STAPHYLOCOCCUS AUREUS) CULTURE Routine 08/23/2023 9:38 PM CDT URINALYSIS AND REFLEX TO MICROSCOPIC AND CULTURE Routine 08/23/2023 9:38 PM CDT PROTEIN / CREATININE RATIO, URINE, RANDOM Routine 08/23/2023 9:38 PM CDT LEUKOCYTES, FECAL Routine 08/23/2023 5:5 7 PM CDT STOOL CULTURE Routine 08/23/2023 5:57 PM CDT EGFR STAT 08/23/2023 5:47 PM CDT DIFFERENTIAL AUTO STAT 08/23/2023 5:4 7 PM CDT THYROID FUNCTION CASCADE STAT 08/23/2023 5:47 PM CDT CBC WITH AUTO DIFFERENTIAL STAT 08/23/2023 5:47 PM CDT TYPE AND SCREEN STAT 08/23/2023 5:47 PM CDT PHOSPHORUS STAT 08/23/2023 5:47 PM CDT MAGNESIUM STAT 08/23/2023 5:47 PM CDT FOLATE STAT 08/23/2023 5:47 PM CDT VITAMIN B12 STAT 08/23/2023 5:47 PM CDT COMPREHENSIVE METABOLIC PANEL STAT 08/23/2023 5:47 PM CDT documented in this encounter Results * eGFR (09/03/2023 3:01 AM CDT) eGFR >90 90 - 130 mL/min/1. 73 m2 [facility] Comment: Interpretive [...] interpretive data was last reviewed 2021. Blood 09/03/2023 3:01 AM CDT 09/03/2023 3:38 AM CDT us Karena Verdugo MD LAB BLOOD ORDERABLES Fin al Result [facility] [place] [address] * (ABNORMAL) Differential, auto (09/03/2023 3:01 AM CDT) Neutrophil abs 4.2 1.7 - 6.5 K/cumm [facility] Imm gran abs 0.0 0.0 - 0.1 K/cumm [facility] Lymphocyte abs 4.4(H) 0.8 - 3.3 K/cumm [facility] Monocyte abs 0.5 0.2 - 0.8 K/cumm [facility] Eosinophil abs 0.6(H) 0.0 - 0.5 K/cumm [facility] Basophil abs 0.1 0.0 - 0.1 K/cumm [facility] Neutrophil pct 42.4 % [facility] Comment: Confirmed by smear review Interpretive Data Percent cell count reference ranges are not reported, since discordance with absolute values may lead to misinterpretation of CBC data. Current Interpretive Data was last revised on 2018. Imm gran pct 0.3 % [facility] Comment: Interpretive Data Percent cell count reference ranges are not reported, since discordance with absolute values may lead to misinterpretation of CBC data. Current Interpretive Data was last revised on 2018. Lymphocyte pct 45.0 % [facility] Comment: Interpretive Data Percent cell count reference ranges are not reported, since discordance with absolute values may lead to misinterpretation of CBC data. Current Interpretive Data was last revised on 2018. Monocyte pct 5.5 % [facility] Comment: Interpretive Data Percent cell count reference ranges are not reported, since discordance with absolute values may lead to misinterpretation of CBC data. Current Interpretive Data was last revised on 2018. Eosinophil pct 6.0 % [facility] Comment: Interpretive Data Percent cell count reference ranges are not reported, since discordance with absolute values may lead to misinterpretation of CBC data. Current Interpretive Data was last revised on 2018. Basophil pct 0.8 % [facility] Comment: Interpretive Data Percent cell count reference ranges are not reported, since discordance with absolute values may lead to misinterpretation of CBC data. Current Interpretive Data was last revised on 2018. Blood 09/03/2023 3:01 AM CDT 09/03/2023 3:38 AM CDT Olena Null MD LAB BLOOD ORDERABLES Final R esult Performing Organization Address [facility] Co de Phone Number [facility] [place] [address] * Tacrolimus level trough (09/03/2023 3:01 AM CDT) Pathologist [facility] Tacrolimus trough 6.2 ng/mL [facility] Comment: Interpretive Data Testing performed by liquid chromatography-tandem mass spectrometry. ??Therapeutic concentrations vary depending on type of transplanted organ and time elapsed since transplant. ??Typical trough concentrations range from 5-15 ng/mL. ??This test was developed and its performance characteristics determined by the [facility] consistent with CLIA requirements. ??This test has not been cleared or approved by the [place] Food and Drug administration. ??Current interpretive data last reviewed 2020. Blood 09/03/2023 3:01 AM CDT 09/03/2023 3:38 AM CDT Delia Ashby MD LAB BLOOD ORDERABLES Final Result Performing Organization Address [facility] de Phone Number [facility] [place] [address] * (ABNORMAL) Hepatic function panel (09/03/2023 3:01 AM CDT) Bilirubin, total 4.2(H) 0.1 - 1.2 mg/dL [facility] Bilirubin, direct 3.2(H) 0.1 - 0.3 mg/dL [facility] Protein, pl 4.5(L) 6.5 - 8.5 g/dL [facility] Albumin 2.6(L) 3.5 - 5.0 g/dL [facility] Alk phos 195(H) 40 - 130 Units/L [facility] ALT 43 7 - 55 Units/L [facility] AST 81(H) 10 - 50 Units/L [facility] Blood 09/03/2023 3:01 AM CDT 09/03/2023 3:38 AM CDT Delia Ashby MD LAB BLOOD ORDERABLES Final Result Performing Organization Address City/[facility]/ZIP Co de Phone Number [facility] Department [place] [address] * (ABNORMAL) Basic metabolic panel (09/03/2023 3:01 AM CDT) [facility] Sodium 143 135 - 145 mmol/L [facility] Potassium, pl 3.9 3.3 - 4.9 mmol/L [facility] Chloride 110 97 - 110 mmol/L [facility] CO2 26 22 - 32 mmol/L [facility] Anion gap 7 2 - 15 mmol/L [facility] BUN 11 6 - 25 mg/dL [facility] Creatinine 0.80 0.80 - 1.30 mg/dL [facility] Glucose 85 70 - 199 mg/dL [facility] Comment: Interpretive Data Fasting glucose >/= [...] 2022. Calcium 8.4(L) 8.5 - 10.3 mg/dL [facility] Blood 09/03/2023 3:01 AM CDT 09/03/2023 3:38 AM CDT Delia Ashby MD LAB BLOOD ORDERABLES Final Result Performing Organization Address City/[facility]/ZIP Co de Phone Number [facility] Department [place] [address] * Phosphorus (09/03/2023 3:01 AM CDT) Phosphorus, pl 3.4 2.3 - 4.5 mg/dL [facility] Blood 09/03/2023 3:01 AM CDT 09/03/2023 3:38 AM CDT Delia Ashby MD LAB BLOOD ORDERAB[place] [address] * Magnesium (09/03/2023 3:01 AM CDT) Magnesium 1.5 1.4 - 2.5 mg/dL [facility] Blood 09/03/2023 3:01 AM CDT 09/03/2023 3:38 AM CDT Delia Ashby MD LAB BLOOD ORDERAB[place] [address] * (ABNORMAL) CBC with auto differential (09/03/2023 3:01 AM CDT) WBC 9.8 3.8 - 9.9 K/cumm [facility] Hgb 11.2(L) 13.0 - 17.5 g/dL [facility] Comment: Interpretive Data A reference range for this assay has not been established for patients with an unknown legal sex. Please refer to the laboratory test catalog for established sex-specific reference intervals. Current interpretive data was last revised on 2023. Hct 30.7(L) 38.9 - 50.3 % [facility] Comment: Interpretive Data A reference range for this assay has not been established for patients with an unknown legal sex. Please refer to the laboratory test catalog for established sex-specific reference intervals. Current interpretive data was last revised on 2023. Plt 190 150 - 400 K/cumm [facility] MPV 11.7 9.1 - 12.3 fL [facility] RBC 2.90(L) 4.30 - 5.80 M/cumm [facility] Comment: Interpretive Data A reference range for this assay has not been established for patients with an unknown legal sex. Please refer to the laboratory test catalog for established sex-specific reference intervals. Current interpretive data was last revised on 2023. MCV 105.9(H) 81.3 - 96.4 fL [facility] MCH 38.6(H) 27.1 - 33.3 pg [facility] MCHC 36.5(H) 32.3 - 35.7 g/dL [facility] RDW CV 21.6(H) 11.1 - 14.9 % [facility] RDW SD 84.0(H) 35.7 - 48.1 fL [facility] NRBC abs 0.02(H) 0.00 - 0.01 K/cumm [facility] Blood 09/03/2023 3:01 AM CDT 09/03/2023 3:38 AM CDT Delia Ashby MD LAB BLOOD ORDERABLES Final Result [facility] [place] [address] * (ABNORMAL) Cytomegalovirus (CMV) DNA PCR, quantitative Blood (09/03/2023 3:01 AM CDT) [facility] CMV DNA Detected( A) [facility] Comment: Interpretive Data: The quantifiable range of this assay is 34 IUnits/mL to 10,000,000 IUnits/mL (1.53 log IUnits/mL to 7.0 log IUnits/mL). Testing was performed by the NIA 6800 CMV Test ([employer] Testing performed at [facility]. Current interpretive data was last revised on 2021. CMV DNA IU/mL 252 IUnits/mL [facility] CMV DNA log IU/mL 2.40 log IUnits/mL [facility] Blood 09/03/2023 3:01 AM CDT 09/03/2023 4:01 AM CDT Tony Baca MD LAB MICROBIOLOGY - GENERAL OR DERABLES Final Result Performing Organization Address City/[facility]/ZIP Co de Phone Number [facility] Department [place] [address] * Uric acid (09/02/2023 3:15 AM CDT) Uric acid 4.3 3.0 - 8.0 mg/dL [facility] Blood 09/02/2023 3:15 AM CDT 09/02/2023 3:31 AM CDT Anita Gillespie MD LAB BLOOD ORDERABLES Final Result Performing Organization Address [facility] Co de Phone Number [facility] Department [place] [address] * eGFR (09/02/2023 3:15 AM CDT) eGFR >90 90 - 130 mL/min/1. 73 m2 [facility] Comment: Interpretive Data Reference Interval Normal ?>/= [...] interpretive data was last reviewed 2021. Blood 09/02/2023 3:15 AM CDT 09/02/2023 3:50 AM CDT us Karena Verdugo MD LAB BLOOD ORDERABLES Fin al Result Performing Organization Address City/[facility]/ZIP Co de Phone Number [facility] Department [place] [address] * (ABNORMAL) Lactate dehydrogenase (LD) (09/02/2023 3:15 AM CDT) Lactate dehydrogenase (LDH) 434(H) 100 - 250 Units/L [facility] Blood 09/02/2023 3:15 AM CDT 09/02/2023 3:31 AM CDT us Anita Gillespie MD LAB BLOOD ORDERABLES Final Result Performing Organization Address City/[facility]/ZIP Co de Phone Number [facility] Department [place] [address] * (ABNORMAL) Differential, auto (09/02/2023 3:15 AM CDT) Neutrophil abs 3.5 1.7 - 6.5 K/cumm [facility] Imm gran abs 0.0 0.0 - 0.1 K/cumm [facility] Lymphocyte abs 3.8(H) 0.8 - 3.3 K/cumm [facility] Monocyte abs 0.6 0.2 - 0.8 K/cumm [facility] Eosinophil abs 0.6(H) 0.0 - 0.5 K/cumm [facility] Basophil abs 0.1 0.0 - 0.1 K/cumm [facility] Neutrophil pct 40.8 % [facility] Comment: Interpretive Data Percent cell count reference ranges are not reported, since discordance with absolute values may lead to misinterpretation of CBC data. Current Interpretive Data was last revised on 2018. Imm gran pct 0.3 % [facility] Comment: Interpretive Data Percent cell count reference ranges are not reported, since discordance with absolute values may lead to misinterpretation of CBC data. Current Interpretive Data was last revised on 2018. Lymphocyte pct 44.6 % [facility] Comment: Interpretive Data Percent cell count reference ranges are not reported, since discordance with absolute values may lead to misinterpretation of CBC data. Current Interpretive Data was last revised on 2018. Monocyte pct 6.5 % [facility] Comment: Interpretive Data Percent cell count reference ranges are not reported, since discordance with absolute values may lead to misinterpretation of CBC data. Current Interpretive Data was last revised on 2018. Eosinophil pct 7.0 % [facility] Comment: Interpretive Data Percent cell count reference ranges are not reported, since discordance with absolute values may lead to misinterpretation of CBC data. Current Interpretive Data was last revised on 2018. Basophil pct 0.8 % [facility] Comment: Interpretive Data Percent cell count reference ranges are not reported, since discordance with absolute values may lead to misinterpretation of CBC data. Current Interpretive Data was last revised on 2018. Blood 09/02/2023 3:15 AM CDT 09/02/2023 3:32 AM CDT us Olena Null MD LAB BLOOD ORDERABLES Final R esult [facility] [place] [address] * Tacrolimus level trough (09/02/2023 3:15 AM CDT) Tacrolimus trough 5.9 ng/mL [facility] Comment: Interpretive Data Testing performed by liquid chromatography-tandem mass spectrometry. ??Therapeutic concentrations vary depending on type of transplanted organ and time elapsed since transplant. ??Typical trough concentrations range from 5-15 ng/mL. ??This test was developed and its performance characteristics determined by the [facility] consistent with CLIA requirements. ??This test has not been cleared or approved by the [place] Food and Drug administration. ??Current interpretive data last reviewed 2020. Blood 09/02/2023 3:15 AM CDT 09/02/2023 3:32 AM CDT Delia Ashby MD LAB BLOOD ORDERABLES Final Result Performing Organization Address [facility] de Phone Number [facility] [employer] [place] [address] * (ABNORMAL) Hepatic function panel (09/02/2023 3:15 AM CDT) [facility] Bilirubin, total 4.0(H) 0.1 - 1.2 mg/dL [facility] Bilirubin, direct 3.0(H) 0.1 - 0.3 mg/dL [facility] Protein, pl 4.5(L) 6.5 - 8.5 g/dL [facility] Albumin 2.4(L) 3.5 - 5.0 g/dL [facility] Alk phos 199(H) 40 - 130 Units/L [facility] ALT 42 7 - 55 Units/L [facility] AST 77(H) 10 - 50 Units/L [facility] Blood 09/02/2023 3:15 AM CDT 09/02/2023 3:31 AM CDT Delia Ashby MD LAB BLOOD ORDERABLES Final Result Performing Organization Address [facility] de Phone Number [facility] [place] [employer] [place] [address] * (ABNORMAL) Basic metabolic panel (09/02/2023 3:15 AM CDT) Sodium 144 135 - 145 mmol/L [facility] Potassium, pl 4.0 3.3 - 4.9 mmol/L [facility] Chloride 112(H) 97 - 110 mmol/L [facility] CO2 25 22 - 32 mmol/L [facility] Anion gap 7 2 - 15 mmol/L [facility] BUN 14 6 - 25 mg/dL [facility] Creatinine 0.73(L) 0.80 - 1.30 mg/dL [facility] Glucose 142 70 - 199 mg/dL [facility] Comment: Interpretive Data Fasting glucose >/= [...] 2022. Calcium 8.4(L) 8.5 - 10.3 mg/dL [facility] Blood 09/02/2023 3:15 AM CDT 09/02/2023 3:31 AM CDT Delia Ashby MD LAB BLOOD ORDERABLES Final Result [facility] [place] [address] * Phosphorus (09/02/2023 3:15 AM CDT) Phosphorus, pl 4.3 2.3 - 4.5 mg/dL [facility] Blood 09/02/2023 3:15 AM CDT 09/02/2023 3:31 AM CDT Delia Ashby MD LAB BLOOD ORDERABLES Final Result Performing Organization Address City/[facility]/ZIP Co de Phone Number [facility] [place] [address] * Magnesium (09/02/2023 3:15 AM CDT) [facility] Magnesium 1.8 1.4 - 2.5 mg/dL [facility] Blood 09/02/2023 3:15 AM CDT 09/02/2023 3:31 AM CDT Delia Ashby MD LAB BLOOD ORDERABLES Final Result Performing Organization Address [facility] de Phone Number [facility] [place] [address] * (ABNORMAL) CBC with auto differential (09/02/2023 3:15 AM CDT) [facility] WBC 8.6 3.8 - 9.9 K/cumm [facility] Hgb 11.1(L) 13.0 - 17.5 g/dL [facility] Comment: Interpretive Data A reference range for this assay has not been established for patients with an unknown legal sex. Please refer to the laboratory test catalog for established sex-specific reference intervals. Current interpretive data was last revised on 2023. Hct 30.9(L) 38.9 - 50.3 % [facility] Comment: Interpretive Data A reference range for this assay has not been established for patients with an unknown legal sex. Please refer to the laboratory test catalog for established sex-specific reference intervals. Current interpretive data was last revised on 2023. Plt 212 150 - 400 K/cumm [facility] MPV 12.3 9.1 - 12.3 fL [facility] RBC 2.89(L) 4.30 - 5.80 M/cumm [facility] Comment: Interpretive Data A reference range for this assay has not been established for patients with an unknown legal sex. Please refer to the laboratory test catalog for established sex-specific reference intervals. Current interpretive data was last revised on 2023. MCV 106.9(H) 81.3 - 96.4 fL [facility] MCH 38.4(H) 27.1 - 33.3 pg [facility] MCHC 35.9(H) 32.3 - 35.7 g/dL [facility] RDW CV 21.7(H) 11.1 - 14.9 % [facility] RDW SD 87.5(H) 35.7 - 48.1 fL [facility] NRBC abs 0.00 0.00 - 0.01 K/cumm [facility] Blood 09/02/2023 3:15 AM CDT 09/02/2023 3:32 AM CDT Delia Ashby MD LAB BLOOD ORDERABLES Final Result Performing Organization Address City/[facility] Co de Phone Number [facility] [place] [employer] [place] [address] * Type and screen (09/02/2023 3:15 AM CDT) ABO Rh A Positive Carol, indirect Negative [facility] Comment:Patient has previous antibody history Blood 09/02/2023 3:15 AM CDT 09/02/2023 3:33 AM CDT Narrative [facility] - 09/02/2023 4:54 AM CDT Has the patient had Daratumumab or Isatuximab in the past 6 months?->Unknown Delia Ashby MD LAB BLOOD BANK TEST ORDERA BLES Final Result [facility] [place] [employer] [place] [address] * Surgical pathology (09/01/2023 4:02 PM CDT) Tissue (Ileum, Biopsy) 09/01/2023 4:02 PM CDT Tissue (Colon, Biopsy) 09/01/2023 4:06 PM CDT Narrative PATHOLOGY [facility] - 09/02/2023 12:35 PM CDT EPIC results best viewed via link to PDF [facility], [place] [address] Note to Patients: This report may contain [...] Gender: ??M : ??1995 (Age: 28) Address: ??[address] [place] [address] ??[id number] Hospital #: ??[id number] Taken:09/01/2023 Received:09/01/2023 Reported: 09/02/2023 Patient Type: [facility] Inpatient ?? Service: Oncology Location: [facility] ??[id number] Physician(s): ??Delia Ashby M.D. Beka Nick M.D. [place] Berman M.D. Diagnosis: A. ??Small bowel, terminal ileum, biopsy ? - Normal small intestinal mucosa B. ??Large bowel, right colon, biopsy ? - Normal colonic mucosa ?? kxb/09/02/2023 12:35 By this signature, I attest that the above diagnosis is based upon my personal examination of the slides(and/or other material indicated in the diagnosis). Radha Oates MD Report Electronically Reviewed and Signed Out By ??Radha Oates MD 09/02/2023 12:35:16 Microscopic Description and Comment: Microscopic examination substantiates the above cited diagnosis. ?? History: The patient is a 28-year-old man presenting with colitis; history of liver transplant, 1998. ??Operative procedure: Colon biopsy. Specimen(s) Received: A: Cold bxs terminal ileum B: Cold bxs right colon Gross Description: Received in two formalin jars labeled with the patient's identifiers. A. ??Labeled cold biopsies terminal ileum and consists of multiple preston-red fragment(s) of soft tissue measuring 1.1 x 0.8 x 0.2 cm in aggregate. ?? Labeled A1. Jar 0. B. ??Labeled cold biopsies right colon and consists of multiple preston and red fragment(s) of soft tissue measuring 0.8 x 0.7 x 0.2 cm in aggregate. ?? Labeled B1. Jar 0. ?? sxst/09/01/2023 17:03 PA(s): Moni Pappas By this signature, I attest that the above diagnosis is based upon my personal examination of the slides(and/or other material). Addenda/Procedures The performance characteristics of some immunohistochemical stains, fluorescence in-situ hybridization tests and immunophenotyping by flow cytometry cited in this report (if any) were determined by the Surgical Pathology and Flow Cytometry Departments at [facility] as part of an ongoing quality assistant program and in compliance with federally mandated [...] Surgical Pathology and Flow Cytometry Departments of [facility]. ??It has not been cleared or approved by the U. S. Food and Drug Administration. IMAGES AND SCANNED DOCUMENTS, IF INCLUDED, ONLY VIEWABLE IN PDF VERSION OF REPORT Delia Ashby MD LAB PATHOLOGY ORDERABLES F inal Result PATHOLOGY [facility] [place] [phone] * COLONOSCOPY (09/01/2023 3:45 PM CDT) Anatomical Region Laterality Modality Other Narrative Procedure Note Delia Ashby MD - 09/01/2023 3:45 PM CDT [facility] Patient Name: Beka Lares Procedure Date: 09/01/2023 3:45 PM Date of : 1995 Admit Type: Inpatient Age: 28 Gender: Male Attending MD: Delia Ashby M.D. Room: [facility] ENDOSCOPY Note Status: Finalized Procedure: Colonoscopy Indications: Abnormal CT of the GI tract Referring MD: Anita Gillespie Providers: Delia Ashby M.D. Medicines: Monitored Anesthesia Care Complications: No immediate complications. Estimated Blood Loss: Estimated blood loss was minimal. Procedure: Pre-Anesthesia Assessment: - Immediately prior to administration ofmedications, the patient was re-assessed for adequacy to receive sedatives. - The risks and benefits of the procedure and the sedation options and risks were discussed with the patient. All questions were answered and informed consent was obtained. The benefits, risks and alternatives of theprocedure and sedation were discussed and informed consentwas obtained. All questions were answered. Please referto the signed informed consent document in the medical record. The scope was passed under direct vision.The Colonoscope was introduced through the anus and advanced to the the terminal ileum, with identification of the appendiceal orifice and IC valve. The colonoscopy was performed without difficulty. The patient tolerated the procedurewell. The quality of the bowel preparation was fair. The quality of the bowel preparation was evaluatedusing the BBPS ([place] Bowel Preparation Scale) withscores of: Right Colon = 1 (portion of mucosa seen, butother areas not well seen due to staining, residual stool and/or opaque liquid), Transverse Colon = 2 (minor amount of residual staining, small fragments ofstool and/or opaque liquid, but mucosa seen well) andLeft Colon = 2 (minor amount of residual staining, small fragments of stool and/or opaque liquid, but mucosa seen well). The total BBPS score equals 5. Thequality of the bowel preparation was fair. The bowel preparation used was GoLYTELY via split dose instruction. Findings: The perianal and digital rectal examinations were normal. The colon (entire examined portion) appeared normal. Biopsies weretaken with a cold forceps for histology. The terminal ileum appeared normal. Biopsies were taken with a cold forceps for histology. No additional abnormalities were found on retroflexion. Impression: - Preparation of the colon was fair. - The entire examined colon is normal. Biopsied. - The examined portion of the ileum was normal. Biopsied. Recommendation: - Await pathology results. - Further recommendations per the inpatientservice. Attending Participation: I was present and participated during the entire procedure, including non-santana portions. Electronically signed by Delia Ashby MD Delia Ashby M.D. 09/02/2023 10:06:42 AM Number of Addenda: 0 Note Initiated On: 09/01/2023 3:45 PM Recognized by the [employer] for promoting quality in endoscopy us Delia Ashby MD ENDOSCOPY PROCEDURES Final Result * POCT glucose (08/31/2023 11:25 PM CDT) Glucose, POC 107 70 - 199 mg/dL [facility] Blood 08/31/2023 11:2 5 PM CDT 08/31/2023 11:25 PM CDT us Anita Gillespie MD LAB POCT ORDERABLES - KIAH CE Final Result [facility] [place] [address] * eGFR (08/31/2023 9:15 PM CDT) eGFR >90 90 - 130 mL/min/1. 73 m2 [facility] Comment: Interpretive Data Reference Interval Normal ?>/= [...] interpretive data was last reviewed 2021. Blood 08/31/2023 9:15 PM CDT 08/31/2023 9:34 PM CDT us Anita Gillespie MD LAB BLOOD ORDERABLES Final Result [facility] [place] [address] * (ABNORMAL) Differential, auto (08/31/2023 9:15 PM CDT) Neutrophil abs 4.3 1.7 - 6.5 K/cumm [facility] Imm gran abs 0.1 0.0 - 0.1 K/cumm [facility] Lymphocyte abs 3.5(H) 0.8 - 3.3 K/cumm [facility] Monocyte abs 0.8 0.2 - 0.8 K/cumm [facility] Eosinophil abs 0.4 0.0 - 0.5 K/cumm [facility] Basophil abs 0.1 0.0 - 0.1 K/cumm [facility] Neutrophil pct 47.0 % [facility] Comment: Interpretive Data Percent cell count reference ranges are not reported, since discordance with absolute values may lead to misinterpretation of CBC data. Current Interpretive Data was last revised on 2018. Imm gran pct 1.4 % [facility] Comment: Interpretive Data Percent cell count reference ranges are not reported, since discordance with absolute values may lead to misinterpretation of CBC data. Current Interpretive Data was last revised on 2018. Lymphocyte pct 38.0 % [facility] Comment: Interpretive Data Percent cell count reference ranges are not reported, since discordance with absolute values may lead to misinterpretation of CBC data. Current Interpretive Data was last revised on 2018. Monocyte pct 8.4 % [facility] Comment: Interpretive Data Percent cell count reference ranges are not reported, since discordance with absolute values may lead to misinterpretation of CBC data. Current Interpretive Data was last revised on 2018. Eosinophil pct 4.3 % [facility] Comment: Interpretive Data Percent cell count reference ranges are not reported, since discordance with absolute values may lead to misinterpretation of CBC data. Current Interpretive Data was last revised on 2018. Basophil pct 0.9 % [facility] Comment: Interpretive Data Percent cell count reference ranges are not reported, since discordance with absolute values may lead to misinterpretation of CBC data. Current Interpretive Data was last revised on 2018. Blood 08/31/2023 9:15 PM CDT 08/31/2023 9:28 PM CDT Anita Gillespie MD LAB BLOOD ORDERABLES Final Result Performing Organization Address [facility] de Phone Number [facility] [place] [address] * Tacrolimus level trough (08/31/2023 9:15 PM CDT) Tacrolimus trough 5.0 ng/mL [facility] Comment: Interpretive Data Testing performed by liquid chromatography-tandem mass spectrometry. ??Therapeutic concentrations vary depending on type of transplanted organ and time elapsed since transplant. ??Typical trough concentrations range from 5-15 ng/mL. ??This test was developed and its performance characteristics determined by the [facility] consistent with CLIA requirements. ??This test has not been cleared or approved by the [place] Food and Drug administration. ??Current interpretive data last reviewed 2020. Blood 08/31/2023 9:15 PM CDT 08/31/2023 9:29 PM CDT us Anita Gillespie MD LAB BLOOD ORDERABLES Final Result Performing Organization Address [facility] de Phone Number [facility] Department [place] [address] * Phosphorus (08/31/2023 9:15 PM CDT) Phosphorus, pl 3.9 2.3 - 4.5 mg/dL [facility] Blood 08/31/2023 9:15 PM CDT 08/31/2023 9:28 PM CDT Anita Gillespie MD LAB BLOOD ORDERABLES Final Result Performing Organization Address City/[facility]/ZIP Co de Phone Number [facility] Department [place] [address] * Magnesium (08/31/2023 9:15 PM CDT) Pathologist [facility] Magnesium 1.6 1.4 - 2.5 mg/dL [facility] Blood 08/31/2023 9:15 PM CDT 08/31/2023 9:28 PM CDT Anita Gillespie MD LAB BLOOD ORDERABLES Final Result Performing Organization Address [facility] Co de Phone Number [facility] [place] [address] * (ABNORMAL) Hepatic function panel (08/31/2023 9:15 PM CDT) Bilirubin, total 5.3(H) 0.1 - 1.2 mg/dL [facility] Bilirubin, direct 4.1(H) 0.1 - 0.3 mg/dL [facility] Protein, pl 4.8(L) 6.5 - 8.5 g/dL [facility] Albumin 2.7(L) 3.5 - 5.0 g/dL [facility] Alk phos 202(H) 40 - 130 Units/L [facility] ALT 46 7 - 55 Units/L [facility] AST 82(H) 10 - 50 Units/L [facility] Blood 08/31/2023 9:15 PM CDT 08/31/2023 9:28 PM CDT Anita Gillespie MD LAB BLOOD ORDERABLES Final Result Performing Organization Address City/[facility] Co de Phone Number [facility] [place] [address] * (ABNORMAL) CBC with auto differential (08/31/2023 9:15 PM CDT) [facility] WBC 9.2 3.8 - 9.9 K/cumm [facility] Hgb 11.5(L) 13.0 - 17.5 g/dL [facility] Comment: Interpretive Data A reference range for this assay has not been established for patients with an unknown legal sex. Please refer to the laboratory test catalog for established sex-specific reference intervals. Current interpretive data was last revised on 2023. Hct 31.9(L) 38.9 - 50.3 % [facility] Comment: Interpretive Data A reference range for this assay has not been established for patients with an unknown legal sex. Please refer to the laboratory test catalog for established sex-specific reference intervals. Current interpretive data was last revised on 2023. Plt 238 150 - 400 K/cumm [facility] MPV 12.0 9.1 - 12.3 fL [facility] RBC 3.05(L) 4.30 - 5.80 M/cumm [facility] Comment: Interpretive Data A reference range for this assay has not been established for patients with an unknown legal sex. Please refer to the laboratory test catalog for established sex-specific reference intervals. Current interpretive data was last revised on 2023. MCV 104.6(H) 81.3 - 96.4 fL [facility] MCH 37.7(H) 27.1 - 33.3 pg [facility] MCHC 36.1(H) 32.3 - 35.7 g/dL [facility] RDW CV 20.7(H) 11.1 - 14.9 % [facility] RDW SD 79.5(H) 35.7 - 48.1 fL [facility] NRBC abs 0.03(H) 0.00 - 0.01 K/cumm [facility] Blood 08/31/2023 9:15 PM CDT 08/31/2023 9:28 PM CDT us Anita Gillespie MD LAB BLOOD ORDERABLES Final Result [facility] [place] [address] * (ABNORMAL) Basic metabolic panel (08/31/2023 9:15 PM CDT) Pathologist [facility] Sodium 145 135 - 145 mmol/L [facility] Potassium, pl 3.8 3.3 - 4.9 mmol/L [facility] Chloride 110 97 - 110 mmol/L [facility] CO2 26 22 - 32 mmol/L [facility] Anion gap 9 2 - 15 mmol/L [facility] BUN 11 6 - 25 mg/dL [facility] Creatinine 0.71(L) 0.80 - 1.30 mg/dL [facility] Glucose 68(L) 70 - 199 mg/dL [facility] Comment: Interpretive Data Fasting glucose >/= [...] interpretive data was last revised 2022. Calcium 8.1(L) 8.5 - 10.3 mg/dL [facility] Blood 08/31/2023 9:15 PM CDT 08/31/2023 9:28 PM CDT us Anita Gillespie MD LAB BLOOD ORDERABLES Final Result [facility] [place] [address] * (ABNORMAL) Protime-INR (08/31/2023 9:15 PM CDT) PT 16.2(H) 10.3 - 13.7 sec [facility] INR 1.42(H) 0.90 - 1.20 [facility] Comment: Interpretive data Oral anticoagulant therapeutic ranges: Venous thromboembolism prophylaxis or treatment: 2.0-3.0 CARDIOLOGY Standard range: 2.0-3.0 High-intensity range: 2.5-3.5 Refer to indication-specific guidelines for appropriate target ranges for prosthetic heart valve replacement. Current interpretive data was last revised on 2019. Blood 08/31/2023 9:15 PM CDT 08/31/2023 9:28 PM CDT us Anita Gillespie MD LAB BLOOD ORDERABLES Final Result [facility] [place] [address] * ECG 12 lead (08/31/2023 3:15 PM CDT) Ventricular Rate EKG/Min 74 BPM [facility] Atrial Rate 74 BPM [facility] MD-Interval (MSEC) 188 ms [facility] QRS-Interval (MSEC) 82 ms [facility] QT-Interval (MSEC) 442 ms [facility] QTc 490 ms [facility] P Flushing 37 degrees [facility] R Flushing 11 degrees [facility] T Flushing 23 degrees [facility] Diagnosis Normal sinus rhythm Possible Inferior infarct , age undetermined T wave abnormality, consider anterior ischemia Abnormal ECG When compared with ECG of 26-AUG-2023 21:48, (unconfirmed) Borderline criteria for Inferior infarct are now Present Confirmed by LANDRY FERNANDEZ M.D ([id number]) on 09/01/2023 10:36:04 AM [facility] 08/31/2023 3:15 PM CDT 09/01/2023 10:36 AM CDT us Tony Baca MD ECG ORDERABLES Final Result [facility] * (ABNORMAL) IgG (08/31/2023 2:37 AM CDT) Immunoglobulin G <300.0(L) 700.0 - 1,600.0 mg/dL [facility] Blood 08/31/2023 2:37 AM CDT 08/31/2023 3:09 AM CDT us Anita Gillespie MD LAB BLOOD ORDERABLES Final Result [facility] [place] [address] * eGFR (08/31/2023 2:37 AM CDT) eGFR >90 90 - 130 mL/min/1. 73 m2 [facility] Comment: Interpretive Data Reference Interval Normal ?>/= [...] interpretive data was last reviewed 2021. Blood 08/31/2023 2:37 AM CDT 08/31/2023 3:09 AM CDT us Karena Verdugo MD LAB BLOOD ORDERABLES Fin al Result [facility] [place] [address] * (ABNORMAL) Differential, auto (08/31/2023 2:37 AM CDT) Neutrophil abs 4.7 1.7 - 6.5 K/cumm [facility] Imm gran abs 0.1 0.0 - 0.1 K/cumm [facility] Lymphocyte abs 4.1(H) 0.8 - 3.3 K/cumm [facility] Monocyte abs 0.7 0.2 - 0.8 K/cumm [facility] Eosinophil abs 0.7(H) 0.0 - 0.5 K/cumm [facility] Basophil abs 0.1 0.0 - 0.1 K/cumm [facility] Neutrophil pct 45.4 % [facility] Comment: Interpretive Data Percent cell count reference ranges are not reported, since discordance with absolute values may lead to misinterpretation of CBC data. Current Interpretive Data was last revised on 2018. Imm gran pct 0.5 % [facility] Comment: Interpretive Data Percent cell count reference ranges are not reported, since discordance with absolute values may lead to misinterpretation of CBC data. Current Interpretive Data was last revised on 2018. Lymphocyte pct 39.7 % [facility] Comment: Interpretive Data Percent cell count reference ranges are not reported, since discordance with absolute values may lead to misinterpretation of CBC data. Current Interpretive Data was last revised on 2018. Monocyte pct 7.1 % [facility] Comment: Interpretive Data Percent cell count reference ranges are not reported, since discordance with absolute values may lead to misinterpretation of CBC data. Current Interpretive Data was last revised on 2018. Eosinophil pct 6.4 % [facility] Comment: Interpretive Data Percent cell count reference ranges are not reported, since discordance with absolute values may lead to misinterpretation of CBC data. Current Interpretive Data was last revised on 2018. Basophil pct 0.9 % [facility] Comment: Interpretive Data Percent cell count reference ranges are not reported, since discordance with absolute values may lead to misinterpretation of CBC data. Current Interpretive Data was last revised on 2018. Blood 08/31/2023 2:37 AM CDT 08/31/2023 3:11 AM CDT Olena Null MD LAB BLOOD ORDERABLES Final R esult Performing Organization Address [facility] de Phone Number [facility] Department [place] [address] * Tacrolimus level trough (08/31/2023 2:37 AM CDT) Tacrolimus trough 4.2 ng/mL [facility] Comment: Interpretive Data Testing performed by liquid chromatography-tandem mass spectrometry. ??Therapeutic concentrations vary depending on type of transplanted organ and time elapsed since transplant. ??Typical trough concentrations range from 5-15 ng/mL. ??This test was developed and its performance characteristics determined by the [facility] consistent with CLIA requirements. ??This test has not been cleared or approved by the [place] Food and Drug administration. ??Current interpretive data last reviewed 2020. Blood 08/31/2023 2:37 AM CDT 08/31/2023 3:10 AM CDT Delia Ashby MD LAB BLOOD ORDERABLES Final Result Performing Organization Address [facility] de Phone Number [facility] Department [place] [address] * (ABNORMAL) Hepatic function panel (08/31/2023 2:37 AM CDT) Bilirubin, total 4.1(H) 0.1 - 1.2 mg/dL [facility] Bilirubin, direct 2.6(H) 0.1 - 0.3 mg/dL [facility] Protein, pl 4.0(L) 6.5 - 8.5 g/dL [facility] Albumin 2.4(L) 3.5 - 5.0 g/dL [facility] Alk phos 191(H) 40 - 130 Units/L [facility] ALT 45 7 - 55 Units/L [facility] AST 83(H) 10 - 50 Units/L [facility] Comment:Hemolyzed; result ma y be falsely elevated Blood 08/31/2023 2:37 AM CDT 08/31/2023 3:09 AM CDT Delia Ashby MD LAB BLOOD ORDERABLES Final Result [facility] [place] [address] * (ABNORMAL) Basic metabolic panel (08/31/2023 2:37 AM CDT) Sodium 144 135 - 145 mmol/L [facility] Potassium, pl 4.3 3.3 - 4.9 mmol/L [facility] Comment:Hemolyzed; Potassium value may be falsely elevated by as much as 0.3-0.5 mmol/L. Suggest redraw and reanalysis. Chloride 112(H) 97 - 110 mmol/L [facility] CO2 24 22 - 32 mmol/L [facility] Anion gap 8 2 - 15 mmol/L [facility] BUN 12 6 - 25 mg/dL [facility] Creatinine 0.71(L) 0.80 - 1.30 mg/dL [facility] Glucose 77 70 - 199 mg/dL [facility] Comment: Interpretive Data Fasting glucose >/= [...] interpretive data was last revised 2022. Calcium 8.7 8.5 - 10.3 mg/dL [facility] Blood 08/31/2023 2:37 AM CDT 08/31/2023 3:09 AM CDT Delia Ashby MD LAB BLOOD ORDERABLES Final Result Performing Organization Address [facility] Co de Phone Number [facility] [place] [address] * (ABNORMAL) Phosphorus (08/31/2023 2:37 AM CDT) Phosphorus, pl 5.4(H) 2.3 - 4.5 mg/dL [facility] Blood 08/31/2023 2:37 AM CDT 08/31/2023 3:09 AM CDT Delia Ashby MD LAB BLOOD ORDERABLES Final Result Performing Organization Address [facility] de Phone Number [facility] [place] [address] * Magnesium (08/31/2023 2:37 AM CDT) Magnesium 1.6 1.4 - 2.5 mg/dL [facility] Blood 08/31/2023 2:37 AM CDT 08/31/2023 3:09 AM CDT Delia Ashby MD LAB BLOOD ORDERABLES Final Result Performing Organization Address [facility] de Phone Number [facility] [place] [address] * (ABNORMAL) CBC with auto differential (08/31/2023 2:37 AM CDT) WBC 10.3(H) 3.8 - 9.9 K/cumm [facility] Hgb 10.5(L) 13.0 - 17.5 g/dL [facility] Comment: Interpretive Data A reference range for this assay has not been established for patients with an unknown legal sex. Please refer to the laboratory test catalog for established sex-specific reference intervals. Current interpretive data was last revised on 2023. Hct 28.1(L) 38.9 - 50.3 % [facility] Comment: Interpretive Data A reference range for this assay has not been established for patients with an unknown legal sex. Please refer to the laboratory test catalog for established sex-specific reference intervals. Current interpretive data was last revised on 2023. Plt 272 150 - 400 K/cumm [facility] MPV 12.2 9.1 - 12.3 fL [facility] RBC 2.74(L) 4.30 - 5.80 M/cumm [facility] Comment: Interpretive Data A reference range for this assay has not been established for patients with an unknown legal sex. Please refer to the laboratory test catalog for established sex-specific reference intervals. Current interpretive data was last revised on 2023. MCV 102.6(H) 81.3 - 96.4 fL [facility] MCH 38.3(H) 27.1 - 33.3 pg [facility] MCHC 37.4(H) 32.3 - 35.7 g/dL [facility] RDW CV 20.8(H) 11.1 - 14.9 % [facility] RDW SD 74.0(H) 35.7 - 48.1 fL [facility] NRBC abs 0.00 0.00 - 0.01 K/cumm [facility] Blood 08/31/2023 2:37 AM CDT 08/31/2023 3:11 AM CDT us Delia Ashby MD LAB BLOOD ORDERABLES Final Result [facility] [place] [address] * eGFR (08/30/2023 3:47 AM CDT) eGFR >90 90 - 130 mL/min/1. 73 m2 [facility] Comment: Interpretive Data Reference Interval Normal ?>/= [...] interpretive data was last reviewed 2021. Blood 08/30/2023 3:47 AM CDT 08/30/2023 4:01 AM CDT us Karena Verdugo MD LAB BLOOD ORDERABLES Fin al Result [facility] [place] [address] * (ABNORMAL) Differential, auto (08/30/2023 3:47 AM CDT) Neutrophil abs 5.3 1.7 - 6.5 K/cumm [facility] Imm gran abs 0.1 0.0 - 0.1 K/cumm [facility] Lymphocyte abs 4.2(H) 0.8 - 3.3 K/cumm [facility] Monocyte abs 1.0(H) 0.2 - 0.8 K/cumm [facility] Eosinophil abs 0.6(H) 0.0 - 0.5 K/cumm [facility] Basophil abs 0.1 0.0 - 0.1 K/cumm [facility] Neutrophil pct 46.9 % [facility] Comment: Consistent with previous result Interpretive Data Percent cell count reference ranges are not reported, since discordance with absolute values may lead to misinterpretation of CBC data. Current Interpretive Data was last revised on 2018. Imm gran pct 0.7 % [facility] Comment: Interpretive Data Percent cell count reference ranges are not reported, since discordance with absolute values may lead to misinterpretation of CBC data. Current Interpretive Data was last revised on 2018. Lymphocyte pct 37.1 % [facility] Comment: Interpretive Data Percent cell count reference ranges are not reported, since discordance with absolute values may lead to misinterpretation of CBC data. Current Interpretive Data was last revised on 2018. Monocyte pct 9.0 % [facility] Comment: Interpretive Data Percent cell count reference ranges are not reported, since discordance with absolute values may lead to misinterpretation of CBC data. Current Interpretive Data was last revised on 2018. Eosinophil pct 5.7 % [facility] Comment: Interpretive Data Percent cell count reference ranges are not reported, since discordance with absolute values may lead to misinterpretation of CBC data. Current Interpretive Data was last revised on 2018. Basophil pct 0.6 % [facility] Comment: Interpretive Data Percent cell count reference ranges are not reported, since discordance with absolute values may lead to misinterpretation of CBC data. Current Interpretive Data was last revised on 2018. Blood 08/30/2023 3:47 AM CDT 08/30/2023 4:01 AM CDT us Olena Null MD LAB BLOOD ORDERABLES Final R esult [facility] [place] [address] * Tacrolimus level trough (08/30/2023 3:47 AM CDT) Pathologist [facility] Tacrolimus trough 4.2 ng/mL [facility] Comment: Interpretive Data Testing performed by liquid chromatography-tandem mass spectrometry. ??Therapeutic concentrations vary depending on type of transplanted organ and time elapsed since transplant. ??Typical trough concentrations range from 5-15 ng/mL. ??This test was developed and its performance characteristics determined by the [facility] consistent with CLIA requirements. ??This test has not been cleared or approved by the [place] Food and Drug administration. ??Current interpretive data last reviewed 2020. Blood 08/30/2023 3:47 AM CDT 08/30/2023 4:30 AM CDT Delia Ashby MD LAB BLOOD ORDERABLES Final Result Performing Organization Address [facility] Co de Phone Number [facility] [employer] [place] [address] * (ABNORMAL) Hepatic function panel (08/30/2023 3:47 AM CDT) [facility] Bilirubin, total 4.7(H) 0.1 - 1.2 mg/dL [facility] Bilirubin, direct 3.6(H) 0.1 - 0.3 mg/dL [facility] Protein, pl 4.0(L) 6.5 - 8.5 g/dL [facility] Albumin 2.5(L) 3.5 - 5.0 g/dL [facility] Alk phos 205(H) 40 - 130 Units/L [facility] ALT 44 7 - 55 Units/L [facility] AST 73(H) 10 - 50 Units/L [facility] Blood 08/30/2023 3:47 AM CDT 08/30/2023 4:01 AM CDT Delia Ashby MD LAB BLOOD ORDERABLES Final Result Performing Organization Address [facility] Co de Phone Number [facility] [place] [employer] [place] [address] * (ABNORMAL) Basic metabolic panel (08/30/2023 3:47 AM CDT) Sodium 145 135 - 145 mmol/L [facility] Potassium, pl 4.2 3.3 - 4.9 mmol/L [facility] Chloride 115(H) 97 - 110 mmol/L [facility] CO2 25 22 - 32 mmol/L [facility] Anion gap 5 2 - 15 mmol/L [facility] BUN 11 6 - 25 mg/dL [facility] Creatinine 0.79(L) 0.80 - 1.30 mg/dL [facility] Glucose 83 70 - 199 mg/dL [facility] Comment: Interpretive Data Fasting glucose >/= [...] interpretive data was last revised 2022. Calcium 8.3(L) 8.5 - 10.3 mg/dL [facility] Blood 08/30/2023 3:47 AM CDT 08/30/2023 4:01 AM CDT us Delia Ashby MD LAB BLOOD ORDERABLES Final Result [facility] [place] [address] * Phosphorus (08/30/2023 3:47 AM CDT) Phosphorus, pl 3.4 2.3 - 4.5 mg/dL [facility] Blood 08/30/2023 3:47 AM CDT 08/30/2023 4:01 AM CDT us Delia Ashby MD LAB BLOOD ORDERABLES Final Result [facility] One [facility] [place] [address] * Magnesium (08/30/2023 3:47 AM CDT) Pathologist [facility] Magnesium 1.6 1.4 - 2.5 mg/dL [facility] Blood 08/30/2023 3:47 AM CDT 08/30/2023 4:01 AM CDT Delia Ashby MD LAB BLOOD ORDERABLES Final Result Performing Organization Address [facility] de Phone Number [facility] [place] [address] * (ABNORMAL) CBC with auto differential (08/30/2023 3:47 AM CDT) [facility] WBC 11.3(H) 3.8 - 9.9 K/cumm [facility] Hgb 11.1(L) 13.0 - 17.5 g/dL [facility] Comment: Interpretive Data A reference range for this assay has not been established for patients with an unknown legal sex. Please refer to the laboratory test catalog for established sex-specific reference intervals. Current interpretive data was last revised on 2023. Hct 30.5(L) 38.9 - 50.3 % [facility] Comment: Interpretive Data A reference range for this assay has not been established for patients with an unknown legal sex. Please refer to the laboratory test catalog for established sex-specific reference intervals. Current interpretive data was last revised on 2023. Plt 269 150 - 400 K/cumm [facility] MPV 12.3 9.1 - 12.3 fL [facility] RBC 3.00(L) 4.30 - 5.80 M/cumm [facility] Comment: Interpretive Data A reference range for this assay has not been established for patients with an unknown legal sex. Please refer to the laboratory test catalog for established sex-specific reference intervals. Current interpretive data was last revised on 2023. MCV 101.7(H) 81.3 - 96.4 fL [facility] MCH 37.0(H) 27.1 - 33.3 pg [facility] MCHC 36.4(H) 32.3 - 35.7 g/dL [facility] RDW CV 20.6(H) 11.1 - 14.9 % [facility] RDW SD 76.2(H) 35.7 - 48.1 fL [facility] NRBC abs 0.00 0.00 - 0.01 K/cumm [facility] Blood 08/30/2023 3:47 AM CDT 08/30/2023 4:01 AM CDT Delia Ashby MD LAB BLOOD ORDERABLES Final Result Performing Organization Address [facility] de Phone Number [facility] [place] [employer] [place] [address] * (ABNORMAL) Protime-INR (08/30/2023 3:47 AM CDT) PT 15.7(H) 10.3 - 13.7 sec [facility] INR 1.38(H) 0.90 - 1.20 [facility] Comment: Interpretive data Oral anticoagulant therapeutic ranges: Venous thromboembolism prophylaxis or treatment: 2.0-3.0 CARDIOLOGY Standard range: 2.0-3.0 High-intensity range: 2.5-3.5 Refer to indication-specific guidelines for appropriate target ranges for prosthetic heart valve replacement. Current interpretive data was last revised on 2019. Blood 08/30/2023 3:47 AM CDT 08/30/2023 4:15 AM CDT Delia Ashby MD LAB BLOOD ORDERABLES Final Result Performing Organization Address [facility] Co de Phone Number [facility] [place] [employer] [place] [address] * aPTT (08/30/2023 3:47 AM CDT) aPTT 33 28 - 38 sec [facility] Comment: Interpretive Data Heparin therapeutic range: 66.0 - 100.0 seconds. Range based on correlation with therapeutic heparin activity range of 0.3 - 0.7 Units/mL. Current interpretive data was last revised on 2023. Blood 08/30/2023 3:47 AM CDT 08/30/2023 4:15 AM CDT Delia Ashby MD LAB BLOOD ORDERABLES Final Result Performing Organization Address City/[facility] Co de Phone Number [facility] Department [place] [address] * (ABNORMAL) Lactate dehydrogenase (LD) (08/30/2023 3:47 AM CDT) Lactate dehydrogenase (LDH) 468(H) 100 - 250 Units/L [facility] Blood 08/30/2023 3:47 AM CDT 08/30/2023 4:01 AM CDT Narrative [facility] - 08/30/2023 4:33 AM CDT Wednesday and only. Morning draw. Delia Ashby MD LAB BLOOD ORDERABLES Final Result Performing Organization Address City/[facility]/ZIP Co de Phone Number [facility] Department [place] [address] * Uric acid (08/30/2023 3:47 AM CDT) Uric acid 3.4 3.0 - 8.0 mg/dL [facility] Blood 08/30/2023 3:4 7 AM CDT 08/30/2023 4:01 AM CDT Narrative [facility] - 08/30/2023 4:33 AM CDT Wednesday and only. Morning draw. . Delia Ashby MD LAB BLOOD ORDERABLES Final Result Performing Organization Address [facility] [place] [address] * Type and screen (08/30/2023 3:47 AM CDT) Pathologist [facility] ABO Rh A Positive Carol, indirect Negative [facility] Comment:Patient has previous antibody history Blood 08/30/2023 3:47 AM CDT 08/30/2023 4:20 AM CDT Narrative [facility] - 08/30/2023 5:54 AM CDT Has the patient had Daratumumab or Isatuximab in the past 6 months?->Unknown Delia Ashby MD LAB BLOOD BANK TEST ORDERA BLES Final Result Performing Organization Address [facility] de Phone Number [facility] [place] [address] * (ABNORMAL) Cytomegalovirus (CMV) DNA PCR, quantitative Blood (08/30/2023 3:47 AM CDT) [facility] CMV DNA Detected( A) [facility] Comment: Interpretive Data: The quantifiable range of this assay is 34 IUnits/mL to 10,000,000 IUnits/mL (1.53 log IUnits/mL to 7.0 log IUnits/mL). Testing was performed by the NIA 6800 CMV Test ([employer] Testing performed at [facility]. Current interpretive data was last revised on 2021. CMV DNA IU/mL 185 IUnits/mL [facility] CMV DNA log IU/mL 2.27 log IUnits/mL [facility] Blood 08/30/2023 3:47 AM CDT 08/30/2023 4:59 AM CDT Karena Verdugo MD LAB MICROBIOLOGY - GENER AL ORDERABLES Final Result Performing Organization Address [facility] Co de Phone Number [facility] [place] [address] * eGFR (08/29/2023 3:10 AM CDT) eGFR >90 90 - 130 mL/min/1. 73 m2 [facility] Comment: Interpretive Data Reference Interval Normal ?>/= [...] interpretive data was last reviewed 2021. Blood 08/29/2023 3:10 AM CDT 08/29/2023 3:46 AM CDT us Karena Verdugo MD LAB BLOOD ORDERABLES Fin al Result Performing Organization Address [facility] Co de Phone Number [facility] [place] [address] * (ABNORMAL) Differential, auto (08/29/2023 3:10 AM CDT) Neutrophil abs 4.1 1.7 - 6.5 K/cumm [facility] Imm gran abs 0.1 0.0 - 0.1 K/cumm [facility] Lymphocyte abs 4.7(H) 0.8 - 3.3 K/cumm [facility] Monocyte abs 1.5(H) 0.2 - 0.8 K/cumm [facility] Eosinophil abs 0.8(H) 0.0 - 0.5 K/cumm [facility] Basophil abs 0.1 0.0 - 0.1 K/cumm [facility] Neutrophil pct 36.6 % [facility] Comment: Confirmed by smear review Interpretive Data Percent cell count reference ranges are not reported, since discordance with absolute values may lead to misinterpretation of CBC data. Current Interpretive Data was last revised on 2018. Imm gran pct 0.6 % [facility] Comment: Interpretive Data Percent cell count reference ranges are not reported, since discordance with absolute values may lead to misinterpretation of CBC data. Current Interpretive Data was last revised on 2018. Lymphocyte pct 41.8 % [facility] Comment: Interpretive Data Percent cell count reference ranges are not reported, since discordance with absolute values may lead to misinterpretation of CBC data. Current Interpretive Data was last revised on 2018. Monocyte pct 12.9 % [facility] Comment: Interpretive Data Percent cell count reference ranges are not reported, since discordance with absolute values may lead to misinterpretation of CBC data. Current Interpretive Data was last revised on 2018. Eosinophil pct 7.4 % [facility] Comment: Interpretive Data Percent cell count reference ranges are not reported, since discordance with absolute values may lead to misinterpretation of CBC data. Current Interpretive Data was last revised on 2018. Basophil pct 0.7 % [facility] Comment: Interpretive Data Percent cell count reference ranges are not reported, since discordance with absolute values may lead to misinterpretation of CBC data. Current Interpretive Data was last revised on 2018. Blood 08/29/2023 3:10 AM CDT 08/29/2023 3:47 AM CDT Olena Null MD LAB BLOOD ORDERABLES Final R esult Performing Organization Address [facility] Co de Phone Number [facility] Department [place] [address] * Tacrolimus level trough (08/29/2023 3:10 AM CDT) Pathologist [facility] Tacrolimus trough 4.2 ng/mL [facility] Comment: Interpretive Data Testing performed by liquid chromatography-tandem mass spectrometry. ??Therapeutic concentrations vary depending on type of transplanted organ and time elapsed since transplant. ??Typical trough concentrations range from 5-15 ng/mL. ??This test was developed and its performance characteristics determined by the [facility] consistent with CLIA requirements. ??This test has not been cleared or approved by the [place] Food and Drug administration. ??Current interpretive data last reviewed 2020. Blood 08/29/2023 3:10 AM CDT 08/29/2023 3:47 AM CDT Delia Ashby MD LAB BLOOD ORDERABLES Final Result Performing Organization Address [facility] de Phone Number [facility] Department [place] [address] * (ABNORMAL) Hepatic function panel (08/29/2023 3:10 AM CDT) Pathologist [facility] Bilirubin, total 4.5(H) 0.1 - 1.2 mg/dL [facility] Bilirubin, direct 3.5(H) 0.1 - 0.3 mg/dL [facility] Protein, pl 4.0(L) 6.5 - 8.5 g/dL [facility] Albumin 2.5(L) 3.5 - 5.0 g/dL [facility] Alk phos 216(H) 40 - 130 Units/L [facility] ALT 47 7 - 55 Units/L [facility] AST 71(H) 10 - 50 Units/L [facility] Blood 08/29/2023 3:10 AM CDT 08/29/2023 3:46 AM CDT Delia Ashby MD LAB BLOOD ORDERABLES Final Result [facility] [place] [address] * (ABNORMAL) Basic metabolic panel (08/29/2023 3:10 AM CDT) [facility] Sodium 144 135 - 145 mmol/L [facility] Potassium, pl 3.8 3.3 - 4.9 mmol/L [facility] Chloride 112(H) 97 - 110 mmol/L [facility] CO2 25 22 - 32 mmol/L [facility] Anion gap 7 2 - 15 mmol/L [facility] BUN 10 6 - 25 mg/dL [facility] Creatinine 0.72(L) 0.80 - 1.30 mg/dL [facility] Glucose 77 70 - 199 mg/dL [facility] Comment: Interpretive Data Fasting glucose >/= [...] 2022. Calcium 7.9(L) 8.5 - 10.3 mg/dL [facility] Blood 08/29/2023 3:10 AM CDT 08/29/2023 3:46 AM CDT Delia Ashby MD LAB BLOOD ORDERABLES Final Result Performing Organization Address City/[facility]/ZIP Co de Phone Number [facility] [place] [address] * Phosphorus (08/29/2023 3:10 AM CDT) Pathologist [facility] Phosphorus, pl 3.3 2.3 - 4.5 mg/dL [facility] Blood 08/29/2023 3:10 AM CDT 08/29/2023 3:46 AM CDT Delia Ashby MD LAB BLOOD ORDERABLES Final Result [facility] Department [place] [address] * Magnesium (08/29/2023 3:10 AM CDT) Pathologist [facility] Magnesium 1.6 1.4 - 2.5 mg/dL [facility] Blood 08/29/2023 3:10 AM CDT 08/29/2023 3:46 AM CDT Delia Ashby MD LAB BLOOD ORDERABLES Final Result Performing Organization Address [facility] Co de Phone Number [facility] Department [place] [address] * (ABNORMAL) CBC with auto differential (08/29/2023 3:10 AM CDT) [facility] WBC 11.3(H) 3.8 - 9.9 K/cumm [facility] Hgb 10.9(L) 13.0 - 17.5 g/dL [facility] Comment: Interpretive Data A reference range for this assay has not been established for patients with an unknown legal sex. Please refer to the laboratory test catalog for established sex-specific reference intervals. Current interpretive data was last revised on 2023. Hct 29.9(L) 38.9 - 50.3 % [facility] Comment: Interpretive Data A reference range for this assay has not been established for patients with an unknown legal sex. Please refer to the laboratory test catalog for established sex-specific reference intervals. Current interpretive data was last revised on 2023. Plt 304 150 - 400 K/cumm [facility] MPV 12.2 9.1 - 12.3 fL [facility] RBC 2.94(L) 4.30 - 5.80 M/cumm [facility] Comment: Interpretive Data A reference range for this assay has not been established for patients with an unknown legal sex. Please refer to the laboratory test catalog for established sex-specific reference intervals. Current interpretive data was last revised on 2023. MCV 101.7(H) 81.3 - 96.4 fL [facility] MCH 37.1(H) 27.1 - 33.3 pg [facility] MCHC 36.5(H) 32.3 - 35.7 g/dL [facility] RDW CV 20.0(H) 11.1 - 14.9 % [facility] RDW SD 73.0(H) 35.7 - 48.1 fL [facility] NRBC abs 0.02(H) 0.00 - 0.01 K/cumm [facility] Blood 08/29/2023 3:10 AM CDT 08/29/2023 3:47 AM CDT Delia Ashby MD LAB BLOOD ORDERABLES Final Result [facility] [place] [address] * eGFR (08/28/2023 3:00 AM CDT) Pathologist [facility] eGFR >90 90 - 130 mL/min/1. 73 m2 [facility] Comment: Interpretive Data Reference Interval Normal ?>/= [...] interpretive data was last reviewed 2021. Blood 08/28/2023 3:00 AM CDT 08/28/2023 3:08 AM CDT us Karena Verdugo MD LAB BLOOD ORDERABLES Fin al Result [facility] [place] [address] * (ABNORMAL) Differential, auto (08/28/2023 3:00 AM CDT) Neutrophil abs 3.3 1.7 - 6.5 K/cumm [facility] Imm gran abs 0.1 0.0 - 0.1 K/cumm [facility] Lymphocyte abs 3.9(H) 0.8 - 3.3 K/cumm [facility] Monocyte abs 1.6(H) 0.2 - 0.8 K/cumm [facility] Eosinophil abs 0.9(H) 0.0 - 0.5 K/cumm [facility] Basophil abs 0.1 0.0 - 0.1 K/cumm [facility] Neutrophil pct 33.5 % [facility] Comment: Interpretive Data Percent cell count reference ranges are not reported, since discordance with absolute values may lead to misinterpretation of CBC data. Current Interpretive Data was last revised on 2018. Imm gran pct 0.7 % [facility] Comment: Interpretive Data Percent cell count reference ranges are not reported, since discordance with absolute values may lead to misinterpretation of CBC data. Current Interpretive Data was last revised on 2018. Lymphocyte pct 39.3 % [facility] Comment: Interpretive Data Percent cell count reference ranges are not reported, since discordance with absolute values may lead to misinterpretation of CBC data. Current Interpretive Data was last revised on 2018. Monocyte pct 16.5 % [facility] Comment: Interpretive Data Percent cell count reference ranges are not reported, since discordance with absolute values may lead to misinterpretation of CBC data. Current Interpretive Data was last revised on 2018. Eosinophil pct 9.2 % [facility] Comment: Interpretive Data Percent cell count reference ranges are not reported, since discordance with absolute values may lead to misinterpretation of CBC data. Current Interpretive Data was last revised on 2018. Basophil pct 0.8 % [facility] Comment: Interpretive Data Percent cell count reference ranges are not reported, since discordance with absolute values may lead to misinterpretation of CBC data. Current Interpretive Data was last revised on 2018. Blood 08/28/2023 3:00 AM CDT 08/28/2023 3:08 AM CDT us Olena Null MD LAB BLOOD ORDERABLES Final R esult [facility] [place] [address] * Tacrolimus level trough (08/28/2023 3:00 AM CDT) Tacrolimus trough 4.4 ng/mL [facility] Comment: Interpretive Data Testing performed by liquid chromatography-tandem mass spectrometry. ??Therapeutic concentrations vary depending on type of transplanted organ and time elapsed since transplant. ??Typical trough concentrations range from 5-15 ng/mL. ??This test was developed and its performance characteristics determined by the [facility] consistent with CLIA requirements. ??This test has not been cleared or approved by the [place] Food and Drug administration. ??Current interpretive data last reviewed 2020. Blood 08/28/2023 3:00 AM CDT 08/28/2023 3:08 AM CDT Delia Ashby MD LAB BLOOD ORDERABLES Final Result Performing Organization Address [facility] Co de Phone Number [facility] [place] [address] * (ABNORMAL) Hepatic function panel (08/28/2023 3:00 AM CDT) Bilirubin, total 4.8(H) 0.1 - 1.2 mg/dL [facility] Bilirubin, direct 3.9(H) 0.1 - 0.3 mg/dL [facility] Protein, pl 4.2(L) 6.5 - 8.5 g/dL [facility] Albumin 2.5(L) 3.5 - 5.0 g/dL [facility] Alk phos 227(H) 40 - 130 Units/L [facility] ALT 51 7 - 55 Units/L [facility] AST 78(H) 10 - 50 Units/L [facility] Blood 08/28/2023 3:00 AM CDT 08/28/2023 3:08 AM CDT Delia Ashby MD LAB BLOOD ORDERABLES Final Result Performing Organization Address [facility] Co de Phone Number [facility] [place] [address] * (ABNORMAL) Basic metabolic panel (08/28/2023 3:00 AM CDT) Sodium 141 135 - 145 mmol/L [facility] Potassium, pl 3.5 3.3 - 4.9 mmol/L [facility] Chloride 110 97 - 110 mmol/L [facility] CO2 24 22 - 32 mmol/L [facility] Anion gap 7 2 - 15 mmol/L [facility] BUN 9 6 - 25 mg/dL [facility] Creatinine 0.72(L) 0.80 - 1.30 mg/dL [facility] Glucose 85 70 - 199 mg/dL [facility] [facility] Comment: Interpretive Data Fasting glucose >/= [...] interpretive data was last revised 2022. Calcium 6.9(L) 8.5 - 10.3 mg/dL [facility] Blood 08/28/2023 3:00 AM CDT 08/28/2023 3:08 AM CDT Delia Ashby MD LAB BLOOD ORDERABLES Final Result Performing Organization Address City/[facility]/ZIP Co de Phone Number [facility] Department [place] [employer] [place] [address] * (ABNORMAL) Phosphorus (08/28/2023 3:00 AM CDT) Phosphorus, pl 2.1(L) 2.3 - 4.5 mg/dL [facility] Blood 08/28/2023 3:00 AM CDT 08/28/2023 3:08 AM CDT Delia Ashby MD LAB BLOOD ORDERABLES Final Result [facility] Department [place] [address] * Magnesium (08/28/2023 3:00 AM CDT) Magnesium 2.0 1.4 - 2.5 mg/dL [facility] Blood 08/28/2023 3:00 AM CDT 08/28/2023 3:08 AM CDT Delia Ashby MD LAB BLOOD ORDERABLES Final Result [facility] [place] [address] * (ABNORMAL) CBC with auto differential (08/28/2023 3:00 AM CDT) [facility] WBC 9.9 3.8 - 9.9 K/cumm [facility] Hgb 10.2(L) 13.0 - 17.5 g/dL [facility] Comment: Interpretive Data A reference range for this assay has not been established for patients with an unknown legal sex. Please refer to the laboratory test catalog for established sex-specific reference intervals. Current interpretive data was last revised on 2023. Hct 28.0(L) 38.9 - 50.3 % [facility] Comment: Interpretive Data A reference range for this assay has not been established for patients with an unknown legal sex. Please refer to the laboratory test catalog for established sex-specific reference intervals. Current interpretive data was last revised on 2023. Plt 283 150 - 400 K/cumm [facility] MPV 12.0 9.1 - 12.3 fL [facility] RBC 2.74(L) 4.30 - 5.80 M/cumm [facility] Comment: Interpretive Data A reference range for this assay has not been established for patients with an unknown legal sex. Please refer to the laboratory test catalog for established sex-specific reference intervals. Current interpretive data was last revised on 2023. MCV 102.2(H) 81.3 - 96.4 fL [facility] MCH 37.2(H) 27.1 - 33.3 pg [facility] MCHC 36.4(H) 32.3 - 35.7 g/dL [facility] RDW CV 19.5(H) 11.1 - 14.9 % [facility] RDW SD 70.5(H) 35.7 - 48.1 fL [facility] NRBC abs 0.03(H) 0.00 - 0.01 K/cumm [facility] Blood 08/28/2023 3:00 AM CDT 08/28/2023 3:08 AM CDT us Delia Ashby MD LAB BLOOD ORDERABLES Final Result Performing Organization Address City/State/[facility] Co de Phone Number [facility] [place] [address] * MD ABDOM PARACENTESIS DX/THER W/IMAGING GUIDANCE (08/27/2023 2:24 PM CDT) Narrative Marylou Goodson MD - 08/27/2023 2:24 PM CDT Nick Martínez MD ? 08/27/2023 ??2:25 PM Paracentesis Date/Time: 08/27/2023 2:24 PM Performed by: Fabi Son MD Authorized by: Marylou Goodson MD ?? [place] Protocol: ??RN Notified of Procedure: yes ?Informed consent: ??Risks, benefits, alternatives discussed ??Patient's stated name/ matches armband: ??Yes ??Allergies confirmed: yes ?Consent form signed, dated, timed; matches correct patient, intended procedure and site: ??Yes ??Imaging: ??N/a ??Lab/Diag test results: ??N/a ??Supplies, devices and special equipment are available: yes ?Site/side marked: yes ?Immediately prior to the procedure a time out was called: a verbal verification by the procedure participants confirmed correct patient identity, correct site/side marked and visible (if applicable); agreement on procedure to be done; and correct patient positioning ?? Initial or subsequent exam: ??Initial Procedure purpose: ??Diagnostic and therapeutic Indications: new onset ascites ?? Done with ultrasound: Yes ?? Ultrasound guidance: ??Pre-procedure diagnostic See LLQ and RLQ US imaging below, pt does not have adequate pocket for safe paracentesis. Discussed with pt and primary provider who agreed to not move forward with the procedure. us Marylou Goodson MD IN CLINIC/BEDSIDE ORDERAB LES Final Result * Flow Leukemia/Lymphoma Lymph node (08/27/2023 1:59 PM CDT) Leukemia/Lymph melissa Result See comment [facility] Comment:Credited, duplicate test. Lymph node 08/27/2023 1:59 PM CDT 09/03/2023 3:10 PM CDT Narrative [facility] - 09/03/2023 3:11 PM CDT Retro Peritoneal Lymph Node-FNB Charles Damian MD LAB PATHOLOGY ORDERABLES Fi nal Result [facility] Department [place] [address] * Flow Leukemia/Lymphoma Lymph node (08/27/2023 1:48 PM CDT) Pathologist [facility] Frazier Stain Test Completed [facility] Leukemia/Lymp josé manuel Result See separate Surgical Pathology report. [facility] Lymph node 08/27/2023 1:48 PM CDT 08/27/2023 5:51 PM CDT Anita Gillespie MD LAB PATHOLOGY ORDERABLES F inal Result Performing Organization Address City/[facility]/ZIP Co de Phone Number [facility] Department [place] [address] * Surgical pathology (08/27/2023 1:48 PM CDT) Tissue (Lymph node, needle biopsy) 08/27/2023 1:48 PM CDT Tissue (Liver, Biopsy, Needle Medical) 08/27/2023 1:55 PM CDT Narrative PATHOLOGY [facility] - 09/03/2023 10:14 PM CDT EPIC results best viewed via link to PDF [facility] Yulisa [facility] [place] [address] Note to Patients: This report may contain [...] Gender: ??M : ??1995 (Age: 28) Address: ??[address], [place] ??[address] Hospital #: ??[id number] Taken:08/27/2023 Received:08/27/2023 Reported: 09/03/2023 Patient Type: [facility] Inpatient ?? Service: Oncology Location: [facility] ??[id number] Physician(s): ??Charles Damian M.D. Rafia Bautista M.D. Anita Gillespie M.D. Diagnosis: A. ??Lymph node, retroperitoneal, endoscopic ultrasound-guided fine-needle biopsy ? - Few fragments of organized mixed lymphoid tissue, with scattered cells positive for CMV by immunostain ? - No definitive evidence of patient's prior post-transplant lymphoproliferative disease (negative for EBV by JAKOB-RASHAUN) ? - Morphologic assessment limited by crush artifact ? - See comment B. 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 - Limited biopsy specimen with canalicular and hepatocellular cholestasis, with portal mixed inflammation and bile duct injury, with possible loss of a subset of bile ducts (see comment) ? - Sinusoidal and lobular mixed inflammation with scattered rare foci of hepatocyte dropout ? - Periportal fibrosis, patchy extensive perisinusoidal fibrosis with delicate bridging, and one area of portal-central approximation ? - No definitive evidence of patient's prior post-transplant lymphoproliferative disease (negative for EBV by JAKOB-RASHAUN) ? - Mild stainable iron within Kupffer cells and hepatocytes (score 1-2+ out of 4) ? - No evidence to support [id number] deficiency by PAS-D ? - No definitive CMV viral inclusions by immunostain ? - See comment ? C. Lymph node, retroperitoneal, tissue for flow cytometry ? - No clonal B-cell or aberrant T-cell populations detected ? - See comment ?? amwo/08/29/2023 22:04 By this signature, I attest that the above diagnosis is based upon my personal examination of the slides(and/or other material indicated in the diagnosis). Aure Yoder M.D., Ph.D. Report Electronically Reviewed and Signed Out By ??Aure Yoder M.D., Ph.D. 09/03/2023 22:14:45 Diagnosis Comment The clinical history of CVID, autoimmune hepatitis [...] is no B cell infiltrate and JAKOB RASHAUN is negative. The differential diagnosis for the constellation of findings include CVID-associated liver disease (see reference below), which is frequently associated with pericellular fibrosis and increased intrasinusoidal and portal infiltrates, among other findings. The previous biopsy ([id number]), which was reviewed in comparison with the [...] be clinically excluded. Clinical correlation is needed. This case was shown and discussed with Dr. Deann Bautista and the inpatient Hepatology team on 08/31/2023 over Zoom at 2:30pm, as well as at the Liver Pathology Conference and Liver/GI pathology consensus conference on 09/01/2023. Microscopic Description and Comment: Part A: Sections of the retroperitoneal lymph node biopsy show a few fragments of lymphoid tissue with crush artifact. The crush artifact limits the morphologic assessment. CD3 and CD20 immunostains on block A1 show polytypic organized lymphoid tissue, with both B-cells and T-cells present. JAKOB RASHAUN is negative on both blocks A1 and A2. CMV immunostains on blocks A1 and A2 show scattered CMV+ cells. Part B: Sections of the liver allograft biopsy show one core of liver parenchyma with limited number of portal tracts for evaluation (approximately 8). ??Portal tracts show moderate, mixed inflammation composed primarily of lymphocytes with scattered plasma cells and histiocytes and rare neutrophils and eosinophils. There is mild interface activity. There is bile ductular proliferation with patchy reactive bile ductular epithelial changes and intraepithelial lymphocyte infiltration. CK7 immunostain shows extensive biliary metaplasia in periportal hepatocytes and apparent loss of [place]olla bile ducts in approximately 4 of 8 portal tracts (H&E and CK7 stain). There is no prominent endotheliitis noted in portal or central veins. Hepatitic arteries are histologically unremarkable. Hepatic lobules and sinusoids show diffuse increased mixed sinusoidal inflammation, as well as focal areas with lymphocyte-predominant inflammation. In addition, multifocal periportal and centrilobular areas show evidence of hepatocyte loss, with fibrosis, and rare acidophil bodies. One area shows possible central vein obliteration and portal-central approximation with loss of hepatocytes and extensive sinusoidal fibrosis. The lobule is also notable for canalicular and hepatocellular cholestasis. There is no steatosis. Special stains were performed on block A1 to further evaluate the liver parenchyma. Trichrome and reticulin stains confirm the H&E impression of increased fibrosis, with periportal fibrosis and extensive pericentral perisinusoidal fibrosis, as well as scattered areas of delicate bridging. Iron stain shows mild stainable iron within Kupffer cells and hepatocytes (score 1-2+ out of 4). The PAS-D stain is negative for intrahepatocellular globules. Copper stain is positive, suggestive of chronic cholestasis. CMV immunostain on block A1 shows a single equivocal focus of staining; repeat immunostain is negative. JAKOB RASHAUN on block A1 is also negative. CD3 immunostain shows that the lymphocytic aggregates in the lobule and infiltrates in the portal tracts are T-cell predominant. CD20 immunostain shows sparse scattered B-cells in the lobule only. Part C (Flow cytometry): Specimen quality: Adequate Flow cytometry analysis shows the lymphocyte-gated events account for 54% of the overall cellularity of the specimen. The CD19+CD20+ B-cell population comprises 17% of lymphocytes, is polytypic. The CD3+ T-cells comprise 78% of lymphocytes and show no significant loss of fortune T-cell antigens. The CD4 to CD8 ratio is within normal limits. There is a small population of CD56+ events (2% of lymphocytes) consistent with natural killer cells. There is no overt increase in CD38+ plasma cells. There is no significant CD45 dim-gated events, and CD34+ events are not increased. ?? Correlation with morphology (if submitted), clinical and laboratory data is recommended. A malignant process cannot be excluded solely on the basis of this assay. ?? A Frazier-Giemsa stained slide from the flow cytometry specimen was examined for internal quality process auditor purposes. Flow cytometry was performed using antibodies to the following cellular antigens: CD45, CD34, CD19, CD20, [place], Lambda, CD10, CD5, CD200, CD38, CD2, CD3, CD4, CD7, CD8, CD56, TCR-GD. Total antigens analyzed: 17 Flow cytometry and cytospin reviewed by Dr. Ricks.[facility] Microscopic examination substantiates the above cited diagnosis. Special stains and single antibody immunostain procedures were performed with appropriately staining controls. Reference: Mayito Martinez [facility], [place]*; Francisco Hernandez MD, PhD*; Sara Campo MD, PhD? ? ? ; Marco Villeda MD? ? ? ; Fern Sharp MD? ? ?; [place] ? ? tima QUINTANILLA?; Zahida Quinteros MD? ? ?; Syed Arambula MD*. 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 The [place] Journal of Surgical Pathology 44(5):p [phone], March 2020. Nancy Combs M.D., PhD History: The patient is a 28-year-old man presenting with history of liver transplant. 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 ??Jaundice. ??Operative procedure: ??Upper endoscopy ultrasound fine-needle aspiration/biopsy. Specimen(s) Received: A: Retro peritoneal lymph node-FNB B: EUS, liver, biopsy, needle medical C: Retro peritoneal lymph node-FNB Gross Description: Received in two formalin jars labeled with the patient's identifiers. A. ??Labeled retroperitoneal lymph node FNB are multiple cores and fragments of tissue admixed with hemorrhagic material (measuring 4.0 by 2.4 x 0.1 cm in aggregate). ?? Labeled A1 to A2. Jar 0. B. ??Labeled EUS, liver, biopsy, needle medical and consists of two preston-red cores of soft tissue with attached hemorrhagic material measuring 0.5 to 1.9 cm in length x 0.1 cm in diameter. ??Labeled A1 and A2. Jar 0. ?? els/08/27/2023 17:17 PA(s): Kristine Ley By this signature, I attest that the above diagnosis is based upon my personal examination of the slides(and/or other material). Katelynn Almeida M.D. Parish Ricks M.D. Addenda/Procedures The performance characteristics of some immunohistochemical stains, fluorescence in-situ hybridization tests and immunophenotyping by flow cytometry cited in this report (if any) were determined by the Surgical Pathology and Flow Cytometry Departments at [facility] as part of an ongoing quality assistant program and in compliance with federally mandated [...] Surgical Pathology and Flow Cytometry Departments of [facility]. ??It has not been cleared or approved by the U. S. Food and Drug Administration. IMAGES AND SCANNED DOCUMENTS, IF INCLUDED, ONLY VIEWABLE IN PDF VERSION OF REPORT us Charles Damian MD LAB PATHOLOGY ORDERABLES Fi nal Result PATHOLOGY [facility] [address]rd Floor [place], [place] [phone] * US Vein Duplex Upper Extremity Left Limited, Unilateral (08/27/2023 1:24 PM CDT) Anatomical Region Laterality Modality Vascular Left Ultrasound 08/27/2023 1:53 PM CDT Narrative 08/28/2023 7:13 AM CDT [facility] - Department of Vascular Surgery, Vascular Laboratory [address] [place] [address] Upper Extremity Venous Ultrasound Report Patient Name: BEKA LARES J : 1995 (28y 6m) Study Date: 08/27/2023 1:53:38 PM Gender: M Tech: Location: [id number] Ref.Provider: KARENA MAK Quality: Adequate Order Provider: KARENA MAK Procedures: Vascular Report: Venous Duplex imaging was performed in the left upper extremity. The internal jugular, subclavian and axillary veins were evaluated for patency, spontaneity and phasicity with Doppler, compression and augmentation maneuvers. The brachial, basilic and cephalic veins were also evaluated with compression maneuvers. Indications: edema. Findings: Performing Tool Inspector: Shannan Oviedo RVT. Left: Venous Doppler signals in the left upper extremity are within normal limits for spontaneity and phasicity; normal response to compression maneuvers. Positive for superficial vein thrombus in the left upper extremity. Superficial veins involved include the basilic vein and superficial thrombus length is >5cm. Comments: Contralateral subclavian vein was not imaged for comparison . Unilateral (limited study) performed per M.D. order. Mixed echogenicity vascularized structure present in the left neck area, may be consistent with possible lymphadenopathy. See CT 08/23/2023. Conclusions: 1. No evidence of acute deep vein thrombosis in the left upper extremity. 2. Superficial vein thrombus in the left upper extremity. 3. See Comments. History: Cancer. Previous Studies: No previous studies for comparison. Disclaimer: The study images and the final report will be retained in the patient chart by the Vascular Laboratory for the legally required time period. This chart constitutes the legal record of any testing performed. Attestation: I have reviewed and interpreted the pertinent images and measurements of this study. I attest to the conclusions in the final report that is provided above. Electronically Signed By: Severino Pickett MD [facility] 2023-08-28 07:13:33 CDT CC: CC: Procedure Note Severino Pickett MD - 08/28/2023 [facility] - Department of Vascular Surgery,Vascular Laboratory [address] [place] [address] Upper Extremity Venous Ultrasound Report Patient Name: BEKA LARES JPatient ID: [id number] : 1995 (28y 6m)Study Date: 08/27/2023 1:53:38 PM Gender: MAccession #: [id number] Tech: DRLocation: [id number] Ref.Provider: KARENA MAKQuality: Adequate Order Provider: KARENA MAK Procedures: Vascular Report: Venous Duplex imaging was performed in the left upper extremity. Theinternal jugular, subclavian and axillary veins were evaluated for patency, spontaneity andphasicity with Doppler, compression and augmentation maneuvers. The brachial, basilic andcephalic veins were also evaluated with compression maneuvers. Indications: edema. Findings: Performing Tool Inspector: Shannan Oviedo RVT. Left: Venous Doppler signals in the left upper extremity are within normallimits for spontaneity and phasicity; normal response to compression maneuvers.Positive for superficial vein thrombus in the left upper extremity. Superficial veinsinvolved include the basilic vein and superficial thrombus length is >5cm. Comments: Contralateral subclavian vein was not imaged for comparison . Unilateral(limited study) performed per M.D. order. Mixed echogenicity vascularized structurepresent in the left neck area, may be consistent with possible lymphadenopathy. See CT08/23/2023. Conclusions: 1. No evidence of acute deep vein thrombosis in the left upperextremity. 2. Superficial vein thrombus in the left upper extremity. 3. See Comments. History: Cancer. Previous Studies: No previous studies for comparison. Disclaimer: The study images and the final report will be retained in the patientchart by the Vascular Laboratory for the legally required time period. This chartconstitutes the legal record of any testing performed. Attestation: I have reviewed and interpreted the pertinent images and measurements ofthis study. I attest to the conclusions in the final report that is provided above. Electronically Signed By: Severino Pickett MD [facility] 2023-08-28 07:13:33 CDT CC: CC: us Karena Verdugo MD IMG US PROCEDURES Final Result * EUS (08/27/2023 1:02 PM CDT) Anatomical Region Laterality Modality Other Narrative Procedure Note Charles Damian MD - 08/27/2023 1:02 PM CDT [facility] Patient Name: Beka Lares Procedure Date: 08/27/2023 1:02 PM Date of : 1995 Admit Type: Inpatient Age: 28 Gender: Male Attending MD: Charles Damian M.D. Room: [facility] ENDOSCOPY ROOM 2 Note Status: Finalized Procedure: Upper EUS Indications: Lymphadenopathy on MRI; h/o OLT for Autoimmune Hepatitis, ITP s/p splenectomy, with PTLD. Patientnow with diffuse adenopathy, anasarca and jaundice. Request for EUS for sampling of abdominal lymphnodes and for liver biopsy. Referring MD: Rafia Bautista M.D., Anita Gillespie M.D. Providers: Charles Damian M.D. Medicines: Monitored Anesthesia Care; Ciprofloxacin 400mg IV x1. Complications: No immediate complications. Estimated blood loss: Minimal. Estimated Blood Loss: Estimated blood loss was minimal. Procedure: Pre-Anesthesia Assessment: - The risks and benefits of the procedure and the sedation options and risks were discussed with the patient. All questions were answered and informed consent was obtained. - Immediately prior to administration ofmedications, the patient was re-assessed for adequacy to receive sedatives. - The anesthesia plan was to use monitoredanesthesia care (MAC). The risks, benefits and alternatives were discussed and informed consent was obtained.The GIF [id number] endoscope was introduced through themouth, and advanced to the second part of duodenum The Olympus curved linear array therapeuticendosonoscope [id number] was introduced through the mouth, and advanced to the duodenal bulb The upper EUS was accomplished without difficulty. The patienttolerated the procedure well. Findings: ENDOSCOPIC FINDING: : The examined esophagus was normal. The gastric mucosa was diffusely edematous and cobblestonedreminiscent of portal hyperentsive gastropathy vs 2/2 diffuse anasarca/volume overload. The examined duodenum was normal. ENDOSONOGRAPHIC FINDING: : The esophagus, stomach and duodenum were visualizedendosonographically. Many malignant-appearing lymph nodes were visualized in the celiac region (level 20), perigastric region, peripancreatic region andporta hepatis region. The largest measured 30 mm in maximal cross-sectional diameter. The nodes were oval, hypoechoic and had well definedmargins. A 2.7cm retroperitoneal lymph node was targed for transgastricsampling. Fine needle aspiration for histology and flow cytometry wasperformed. Color Doppler imaging was utilized prior to needle puncture toconfirm a lack of significant vascular structures within the needle path. Two passes were made with the 22 gauge Acquire needle using atransgastric approach. A stylet was used. Multiple visible cores of tissue were obtained and sent for pathology and flow cytometry. There was no sign of significant endosonographic abnormality in theleft lobe of the liver. No focal pathology was identified. The patient is post a splenectomy. The left lobe of the liver was examined from the stomach and the medial right lobe examined from the duodenal bulb.The stylet was removed from a 19 G biopsy needle which was then primedwith saline. The needle was then advanced through the scope. Doppler flowwas utilized to establish and avascular path in both locations. Under EUS guidance, the needle was advanced across the gastric wall and beyondthe liver capsule. Suction was then applyed and the needle advancedrapidly and deeply into the liver parenchyma once. Suction was then turnedoff and the needle slowly withdrawn over a few seconds. The specimenswere expelled into formalin with visible cores of tissue present. The region of the celiac plexus and celiac ganglia was visualized and showed no sign of significant endosonographic abnormality. Thevascular anatomy of the region was normal. Impression: EGD: - No esophageal varices. - The gastric mucosa was diffusely edematous and cobblestoned reminiscent of portal hyperentsive gastropathy vs 2/2 diffuse anasarca/volumeoverload. EUS: - Many malignant-appearing lymph nodes werevisualized in the celiac region (level 20), perigastricregion, peripancreatic region and shanita hepatis region. A 2.7cm retroperitoneal lymph node was targed for transgastric sampling. Fine needle aspiration for histology and flow cytometry was performed. - There was no evidence of significant pathology in the left lobe of the liver. The patient is post a splenectomy. Successful EUS guided liver biopsy was performed as described. Recommendation: - Observe patient's clinical course followingtoday's EUS with FNA - Await pathology and flow cytometry. - Followup with Medical Oncology - Followup with Hepatology. - Watch for pancreatitis, bleeding, perforation. - Please avoid NSAIDs (i.e Motrin, Aleve,Ibuprofen, Advil, Naproxen, etc) for the next 10-14 days. Ifyou are taking Aspirin 81mg (baby aspirin) for clear cardiovascular or neurologic indications, youshould continue this. - Return to [facility] care. - Further recommendations per inpatient Hepatology Service. - Call my nurse Kenisha Quintero RN in the GI office at [phone] for your final results in 7 days. Attending Participation: I personally performed the entire procedure. Electronically Signed By: Charles Damian M.D. Charles Damian M.D. 08/27/2023 2:42:07 PM . Number of Addenda: 0 Note Initiated On: 08/27/2023 1:02 PM Recognized by the [employer] for promoting quality in endoscopy us Charles Damian MD ENDOSCOPY PROCEDURES Final Result * eGFR (08/27/2023 3:31 AM CDT) eGFR >90 90 - 130 mL/min/1. 73 m2 [facility] Comment: Interpretive Data Reference Interval Normal ?>/= [...] interpretive data was last reviewed 2021. Blood 08/27/2023 3:31 AM CDT 08/27/2023 4:05 AM CDT us Karena Verdugo MD LAB BLOOD ORDERABLES Fin al Result Performing Organization Address City/State/[facility] Co de Phone Number [facility] [place] [address] * (ABNORMAL) Differential, auto (08/27/2023 3:31 AM CDT) Neutrophil abs 5.4 1.7 - 6.5 K/cumm [facility] Imm gran abs 0.1 0.0 - 0.1 K/cumm [facility] Lymphocyte abs 4.2(H) 0.8 - 3.3 K/cumm [facility] Monocyte abs 1.9(H) 0.2 - 0.8 K/cumm [facility] Eosinophil abs 0.8(H) 0.0 - 0.5 K/cumm [facility] Basophil abs 0.1 0.0 - 0.1 K/cumm [facility] Neutrophil pct 42.9 % [facility] Comment: Consistent with previous result Interpretive Data Percent cell count reference ranges are not reported, since discordance with absolute values may lead to misinterpretation of CBC data. Current Interpretive Data was last revised on 2018. Imm gran pct 0.9 % [facility] Comment: Interpretive Data Percent cell count reference ranges are not reported, since discordance with absolute values may lead to misinterpretation of CBC data. Current Interpretive Data was last revised on 2018. Lymphocyte pct 33.7 % [facility] Comment: Interpretive Data Percent cell count reference ranges are not reported, since discordance with absolute values may lead to misinterpretation of CBC data. Current Interpretive Data was last revised on 2018. Monocyte pct 15.4 % [facility] Comment: Interpretive Data Percent cell count reference ranges are not reported, since discordance with absolute values may lead to misinterpretation of CBC data. Current Interpretive Data was last revised on 2018. Eosinophil pct 6.5 % [facility] Comment: Interpretive Data Percent cell count reference ranges are not reported, since discordance with absolute values may lead to misinterpretation of CBC data. Current Interpretive Data was last revised on 2018. Basophil pct 0.6 % [facility] Comment: Interpretive Data Percent cell count reference ranges are not reported, since discordance with absolute values may lead to misinterpretation of CBC data. Current Interpretive Data was last revised on 2018. Blood 08/27/2023 3:31 AM CDT 08/27/2023 4:06 AM CDT us Olena Null MD LAB BLOOD ORDERABLES Final R esult [facility] [place] [address] * Tacrolimus level trough (08/27/2023 3:31 AM CDT) Tacrolimus trough 3.7 ng/mL [facility] Comment: Interpretive Data Testing performed by liquid chromatography-tandem mass spectrometry. ??Therapeutic concentrations vary depending on type of transplanted organ and time elapsed since transplant. ??Typical trough concentrations range from 5-15 ng/mL. ??This test was developed and its performance characteristics determined by the [facility] consistent with CLIA requirements. ??This test has not been cleared or approved by the [place] Food and Drug administration. ??Current interpretive data last reviewed 2020. Blood 08/27/2023 3:31 AM CDT 08/27/2023 4:05 AM CDT Delia Ashby MD LAB BLOOD ORDERABLES Final Result [facility] [place] [address] * (ABNORMAL) Hepatic function panel (08/27/2023 3:31 AM CDT) Bilirubin, total 5.5(H) 0.1 - 1.2 mg/dL [facility] Bilirubin, direct 4.4(H) 0.1 - 0.3 mg/dL [facility] Protein, pl 4.3(L) 6.5 - 8.5 g/dL [facility] Albumin 2.7(L) 3.5 - 5.0 g/dL [facility] Alk phos 229(H) 40 - 130 Units/L [facility] ALT 53 7 - 55 Units/L [facility] AST 82(H) 10 - 50 Units/L [facility] Blood 08/27/2023 3:31 AM CDT 08/27/2023 4:05 AM CDT Delia Ashby MD LAB BLOOD ORDERABLES Final Result Performing Organization Address City/[facility]/ZIP Co de Phone Number [facility] Department [place] [address] * (ABNORMAL) Basic metabolic panel (08/27/2023 3:31 AM CDT) Sodium 140 135 - 145 mmol/L [facility] Potassium, pl 3.8 3.3 - 4.9 mmol/L [facility] Chloride 109 97 - 110 mmol/L [facility] CO2 23 22 - 32 mmol/L [facility] Anion gap 8 2 - 15 mmol/L [facility] BUN 10 6 - 25 mg/dL [facility] Creatinine 0.76(L) 0.80 - 1.30 mg/dL [facility] Glucose 99 70 - 199 mg/dL [facility] Comment: Interpretive Data Fasting glucose >/= [...] interpretive data was last revised 2022. Calcium 6.9(L) 8.5 - 10.3 mg/dL [facility] Blood 08/27/2023 3:31 AM CDT 08/27/2023 4:05 AM CDT Delia Ashby MD LAB BLOOD ORDERABLES Final Result [facility] Department [place] [address] * Phosphorus (08/27/2023 3:31 AM CDT) Phosphorus, pl 2.3 2.3 - 4.5 mg/dL [facility] Blood 08/27/2023 3:31 AM CDT 08/27/2023 4:05 AM CDT Delia Ashby MD LAB BLOOD ORDERABLES Final Result [facility] Department [place] [address] * Magnesium (08/27/2023 3:31 AM CDT) Magnesium 1.4 1.4 - 2.5 mg/dL [facility] Blood 08/27/2023 3:31 AM CDT 08/27/2023 4:05 AM CDT us Delia Ashby MD LAB BLOOD ORDERABLES Final Result [facility] [place] [address] * (ABNORMAL) CBC with auto differential (08/27/2023 3:31 AM CDT) [facility] WBC 12.5(H) 3.8 - 9.9 K/cumm [facility] Hgb 10.8(L) 13.0 - 17.5 g/dL [facility] Comment: Interpretive Data A reference range for this assay has not been established for patients with an unknown legal sex. Please refer to the laboratory test catalog for established sex-specific reference intervals. Current interpretive data was last revised on 2023. Hct 29.3(L) 38.9 - 50.3 % [facility] Comment: Interpretive Data A reference range for this assay has not been established for patients with an unknown legal sex. Please refer to the laboratory test catalog for established sex-specific reference intervals. Current interpretive data was last revised on 2023. Plt 290 150 - 400 K/cumm [facility] MPV 12.0 9.1 - 12.3 fL [facility] RBC 2.89(L) 4.30 - 5.80 M/cumm [facility] Comment: Interpretive Data A reference range for this assay has not been established for patients with an unknown legal sex. Please refer to the laboratory test catalog for established sex-specific reference intervals. Current interpretive data was last revised on 2023. MCV 101.4(H) 81.3 - 96.4 fL [facility] MCH 37.4(H) 27.1 - 33.3 pg [facility] MCHC 36.9(H) 32.3 - 35.7 g/dL [facility] RDW CV 18.7(H) 11.1 - 14.9 % [facility] RDW SD 68.2(H) 35.7 - 48.1 fL [facility] NRBC abs 0.03(H) 0.00 - 0.01 K/cumm [facility] Blood 08/27/2023 3:31 AM CDT 08/27/2023 4:06 AM CDT us Delia Ashby MD LAB BLOOD ORDERABLES Final Result Performing Organization Address [facility] Co de Phone Number [facility] Department [place] [address] * Troponin I high-sensitivity (08/26/2023 10:31 PM CDT) Trop I hs 8 <=35 ng/L [facility] Comment: Interpretive Data For further hscTnI resources including the diagnostic algorithm and an aid in interpretation, copy and paste this link: [email or web address]/[email or web address] Current Interpretive Data last revised 2020. Blood 08/26/2023 10:3 1 PM CDT 08/26/2023 11:41 PM CDT us Maryam Gonzalez MD LAB BLOOD ORDERABLES F inal Result Performing Organization Address [facility] Co de Phone Number [facility] Department [place] [address] * MRI Abdomen MRCP W WO Contrast Incl 3D (08/26/2023 10:10 AM CDT) Anatomical Region Laterality Modality Body N/A Magnetic Resonan ce 08/26/2023 12:1 1 PM CDT Impressions 08/26/2023 1:52 PM CDT 1. ??Stable postsurgical changes of hepatic transplantation without biliary ductal dilation or focal hepatic observation. ??Hepatic transplant vascular anatomy appears grossly normal but is better characterized on recent CT. 2. ??Stable diffuse lower thoracic, and abdominal adenopathy in keeping with known lymphoproliferative disorder. 3. ??Findings suspicious for bilateral pyelonephritis. ??Correlation with urinalysis is recommended. ??No perinephric collection or hydronephrosis. 4. ??Mildly increased small right and trace left effusions with moderate ascites and diffuse body wall edema in keeping with anasarca. 5. ??Right lung opacities are better characterized on prior CT likely representing multifocal pneumonia. 6. ??Right colon and terminal ileum enterocolitis also better characterized on recent prior CT. Dictated by: Jerrod Ellis M.D. The radiology attending physician has personally reviewed this study, and had reviewed and/or edited this written report and agrees with it. Electronically signed by: Henri Rivera M.D. Narrative 08/26/2023 1:52 PM CDT EXAMINATION: 1. MAGNETIC RESONANCE IMAGING OF THE ABDOMEN WITH AND WITHOUT CONTRAST 2. THREE DIMENSIONAL RECONSTRUCTION OF THE BILIARY TREE AND PANCREATIC DUCT HISTORY: Liver failure with transaminitis and hyperbilirubinemia. 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 TECHNIQUE: Magnetic resonance imaging of the abdomen was performed prior to and following the uneventful administration of intravenous Gadolinium contrast. The raw data was processed on the scanner by the technologist for 3 dimensional reconstructions of the intrahepatic ducts, extrahepatics ducts, and pancreatic duct. Protocol: Liver MRCP Contrast: gadoterate 13 mL COMPARISON: CT 08/23/2023 FINDINGS: Liver: Postsurgical changes of hepatic transplantation. ??No fat or iron deposition. - Bile ducts: No ductal dilation - Focal liver lesions: None - Vasculature: Portal and hepatic veins are patent. ??Arterial anatomy is better characterized on recent CT but appears grossly normal and patent on today's exam. Gallbladder: Surgically absent Pancreas: Normal Spleen: Surgically absent Adrenals: Normal Kidneys: Multifocal areas of wedge-shaped cortical diffusion restriction and mild hypoenhancement. ??No perinephric collection. ??No hydronephrosis. Other Findings: Moderate cardiomegaly. ??No pericardial effusion. Unchanged small right and trace left pleural effusions. ??Unchanged moderate volume ascites and diffuse mesenteric and body wall edema. Unchanged wall thickening of the right colon. ??Stable diffuse lower thoracic, periportal, mesenteric and retroperitoneal adenopathy in keeping with known lymphoproliferative disease. ??For reference, unchanged 2.4 cm right pericardiophrenic lymph node on series 23 image 58. ??Patchy airspace opacities in the right lung are better characterized on prior CT but favored to likely represent pneumonia. Diffuse T1 marrow hypointensity. Procedure Note Henri Rivera MD - 08/26/2023 EXAMINATION: 1. MAGNETIC RESONANCE IMAGING OF THE ABDOMEN WITH AND WITHOUT CONTRAST 2. THREE DIMENSIONAL RECONSTRUCTION OF THE BILIARY TREE AND PANCREATIC DUCT HISTORY: Liver failure with transaminitis and hyperbilirubinemia. 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 TECHNIQUE: Magnetic resonance imaging of the abdomen was performed prior to and following the uneventful administration of intravenous Gadolinium contrast. The raw data was processed on the scanner by the technologist for 3 dimensional reconstructions of the intrahepatic ducts, extrahepatics ducts, and pancreatic duct. Protocol: Liver MRCP Contrast: gadoterate 13 mL COMPARISON: CT 08/23/2023 FINDINGS: Liver: Postsurgical changes of hepatic transplantation. No [...] also better characterized on recent prior CT. Dictated by: Jerrod Ellis M.D. The radiology attending physician has personally reviewed this study, and had reviewed and/or edited this written report and agrees with it. Electronically signed by: Henri Rivera M.D. Karena Verdugo MD IMG MRI PROCEDURES Final Result * Blood culture Blood (08/26/2023 3:23 AM CDT) Report Final Report: No growth [facility] Blood 08/26/2023 3:23 AM CDT 08/26/2023 4:18 AM CDT N[facility]ative [facility] - 08/30/2023 7:00 AM CDT Collection->Peripheral 1. ?Blood cultures [...] organism identification may be performed using the Gigitigene Gram-Positive Blood Culture Assay. This assay detects microbial DNA in positive blood culture broth via hybridization of target DNA to capture oligonucleotides on a microarray. This assay has been cleared by the [place] Food and Drug Administration and its performance characteristics have been verified by the [facility]. 5. ?For questions about this culture, contact the Microbiology Laboratory at [phone]. Interpretive data was last revised on 2020. Karena Verdugo MD LAB MICROBIOLOGY - GENER AL ORDERABLES Final Result [facility] Department [place] [address] * Blood culture Blood (08/26/2023 3:14 AM CDT) Report Final Report: No growth [facility] Blood 08/26/2023 3:14 AM CDT 08/26/2023 4:18 AM CDT Narrative [facility] - 08/30/2023 7:00 AM CDT Collection->Peripheral 1. ?Blood cultures [...] organism identification may be performed using the Gigitigene Gram-Positive Blood Culture Assay. This assay detects microbial DNA in positive blood culture broth via hybridization of target DNA to capture oligonucleotides on a microarray. This assay has been cleared by the [place] Food and Drug Administration and its performance characteristics have been verified by the [facility]. 5. ?For questions about this culture, contact the Microbiology Laboratory at [phone]. Interpretive data was last revised on 2020. us Karena Verdugo MD LAB MICROBIOLOGY - GENER AL ORDERABLES Final Result Performing Organization Address City/[facility] Co de Phone Number [facility] [place] [address] * eGFR (08/26/2023 3:04 AM CDT) eGFR >90 90 - 130 mL/min/1. 73 m2 [facility] Comment: Interpretive Data Reference Interval Normal ?>/= [...] interpretive data was last reviewed 2021. Blood 08/26/2023 3:04 AM CDT 08/26/2023 3:40 AM CDT Karena Verdugo MD LAB BLOOD ORDERABLES Fin al Result Performing Organization Address [facility] Co de Phone Number [facility] [place] [address] * (ABNORMAL) Differential, auto (08/26/2023 3:04 AM CDT) Neutrophil abs 5.5 1.7 - 6.5 K/cumm [facility] Imm gran abs 0.1 0.0 - 0.1 K/cumm [facility] Lymphocyte abs 4.4(H) 0.8 - 3.3 K/cumm [facility] Monocyte abs 2.3(H) 0.2 - 0.8 K/cumm [facility] Eosinophil abs 0.7(H) 0.0 - 0.5 K/cumm [facility] Basophil abs 0.0 0.0 - 0.1 K/cumm [facility] Neutrophil pct 42.1 % [facility] Comment: Consistent with previous result Interpretive Data Percent cell count reference ranges are not reported, since discordance with absolute values may lead to misinterpretation of CBC data. Current Interpretive Data was last revised on 2018. Imm gran pct 0.9 % [facility] Comment: Interpretive Data Percent cell count reference ranges are not reported, since discordance with absolute values may lead to misinterpretation of CBC data. Current Interpretive Data was last revised on 2018. Lymphocyte pct 33.6 % [facility] Comment: Interpretive Data Percent cell count reference ranges are not reported, since discordance with absolute values may lead to misinterpretation of CBC data. Current Interpretive Data was last revised on 2018. Monocyte pct 17.5 % [facility] Comment: Interpretive Data Percent cell count reference ranges are not reported, since discordance with absolute values may lead to misinterpretation of CBC data. Current Interpretive Data was last revised on 2018. Eosinophil pct 5.6 % [facility] Comment: Interpretive Data Percent cell count reference ranges are not reported, since discordance with absolute values may lead to misinterpretation of CBC data. Current Interpretive Data was last revised on 2018. Basophil pct 0.3 % [facility] Comment: Interpretive Data Percent cell count reference ranges are not reported, since discordance with absolute values may lead to misinterpretation of CBC data. Current Interpretive Data was last revised on 2018. Blood 08/26/2023 3:04 AM CDT 08/26/2023 3:40 AM CDT Olena Null MD LAB BLOOD ORDERABLES Final R esult Performing Organization Address [facility] Co de Phone Number [facility] [place] [address] * Tacrolimus level trough (08/26/2023 3:04 AM CDT) Tacrolimus trough 2.1 ng/mL [facility] Comment: Interpretive Data Testing performed by liquid chromatography-tandem mass spectrometry. ??Therapeutic concentrations vary depending on type of transplanted organ and time elapsed since transplant. ??Typical trough concentrations range from 5-15 ng/mL. ??This test was developed and its performance characteristics determined by the [facility] consistent with CLIA requirements. ??This test has not been cleared or approved by the [place] Food and Drug administration. ??Current interpretive data last reviewed 2020. Blood 08/26/2023 3:04 AM CDT 08/26/2023 3:40 AM CDT Delia Ashby MD LAB BLOOD ORDERABLES Final Result Performing Organization Address [facility] de Phone Number [facility] [place] [address] * (ABNORMAL) Hepatic function panel (08/26/2023 3:04 AM CDT) Bilirubin, total 5.3(H) 0.1 - 1.2 mg/dL [facility] Bilirubin, direct 4.4(H) 0.1 - 0.3 mg/dL [facility] Protein, pl 4.3(L) 6.5 - 8.5 g/dL [facility] Albumin 2.6(L) 3.5 - 5.0 g/dL [facility] Alk phos 213(H) 40 - 130 Units/L [facility] ALT 51 7 - 55 Units/L [facility] AST 72(H) 10 - 50 Units/L [facility] Blood 08/26/2023 3:04 AM CDT 08/26/2023 3:40 AM CDT Delia Ashby MD LAB BLOOD ORDERABLES Final Result Performing Organization Address City/[facility]/ZIP Co de Phone Number [facility] Department [place] [address] * (ABNORMAL) Basic metabolic panel (08/26/2023 3:04 AM CDT) [facility] Sodium 141 135 - 145 mmol/L [facility] Potassium, pl 3.6 3.3 - 4.9 mmol/L [facility] Chloride 112(H) 97 - 110 mmol/L [facility] CO2 22 22 - 32 mmol/L [facility] Anion gap 7 2 - 15 mmol/L [facility] BUN 10 6 - 25 mg/dL [facility] Creatinine 0.86 0.80 - 1.30 mg/dL [facility] Glucose 79 70 - 199 mg/dL [facility] Comment: Interpretive Data Fasting glucose >/= [...] interpretive data was last revised 2022. Calcium 7.3(L) 8.5 - 10.3 mg/dL [facility] Blood 08/26/2023 3:04 AM CDT 08/26/2023 3:40 AM CDT Delia Ashby MD LAB BLOOD ORDERABLES Final Result Performing Organization Address City/[facility]/ZIP Co [place] [address] * Phosphorus (08/26/2023 3:04 AM CDT) [facility] Phosphorus, pl 3.0 2.3 - 4.5 mg/dL [facility] Blood 08/26/2023 3:04 AM CDT 08/26/2023 3:40 AM CDT Delia Ashby MD LAB BLOOD ORDERABLES [place] [address] * Magnesium (08/26/2023 3:04 AM CDT) [facility] Magnesium 1.7 1.4 - 2.5 mg/dL [facility] Blood 08/26/2023 3:04 AM CDT 08/26/2023 3:40 AM CDT Delia Ashby MD LAB BLOOD ORDERABLES [place] [address] * (ABNORMAL) CBC with auto differential (08/26/2023 3:04 AM CDT) [facility] WBC 13.0(H) 3.8 - 9.9 K/cumm [facility] Hgb 10.3(L) 13.0 - 17.5 g/dL [facility] Comment: Interpretive Data A reference range for this assay has not been established for patients with an unknown legal sex. Please refer to the laboratory test catalog for established sex-specific reference intervals. Current interpretive data was last revised on 2023. Hct 28.3(L) 38.9 - 50.3 % [facility] Comment: Interpretive Data A reference range for this assay has not been established for patients with an unknown legal sex. Please refer to the laboratory test catalog for established sex-specific reference intervals. Current interpretive data was last revised on 2023. Plt 259 150 - 400 K/cumm [facility] MPV 11.5 9.1 - 12.3 fL [facility] RBC 2.81(L) 4.30 - 5.80 M/cumm [facility] Comment: Interpretive Data A reference range for this assay has not been established for patients with an unknown legal sex. Please refer to the laboratory test catalog for established sex-specific reference intervals. Current interpretive data was last revised on 2023. MCV 100.7(H) 81.3 - 96.4 fL [facility] MCH 36.7(H) 27.1 - 33.3 pg [facility] MCHC 36.4(H) 32.3 - 35.7 g/dL [facility] RDW CV 18.7(H) 11.1 - 14.9 % [facility] RDW SD 69.0(H) 35.7 - 48.1 fL [facility] NRBC abs 0.00 0.00 - 0.01 K/cumm [facility] Blood 08/26/2023 3:04 AM CDT 08/26/2023 3:40 AM CDT us Delia Ashby MD LAB BLOOD ORDERABLES Final Result [facility] [place] [address] * (ABNORMAL) Lactate dehydrogenase (LD) (08/26/2023 3:04 AM CDT) Lactate dehydrogenase (LDH) 502(H) 100 - 250 Units/L [facility] Blood 08/26/2023 3:04 AM CDT 08/26/2023 3:40 AM CDT Narrative [facility] - 08/26/2023 4:11 AM CDT Wednesday and only. Morning draw. us Delia Ashby MD LAB BLOOD ORDERABLES Final Result Performing Organization Address [facility]/ZIP Co de Phone Number [facility] [place] [address] * (ABNORMAL) Uric acid (08/26/2023 3:04 AM CDT) Uric acid 2.2(L) 3.0 - 8.0 mg/dL [facility] Blood 08/26/2023 3:04 AM CDT 08/26/2023 3:40 AM CDT Narrative [facility] - 08/26/2023 4:11 AM CDT Wednesday and only. Morning draw. . Delia Ashby MD LAB BLOOD ORDERABLES Final Result Performing Organization Address [facility] Co de Phone Number [facility] [place] [address] * Type and screen (08/26/2023 3:04 AM CDT) Pathologist [facility] Carol, indirect Negative Comment:Patient has previous antibody history ABO Rh A Positive [facility] Blood 08/26/2023 3:04 AM CDT 08/26/2023 3:53 AM CDT Narrative [facility] - 08/26/2023 5:49 AM CDT Has the patient had Daratumumab or Isatuximab in the past 6 months?->Unknown Delia Ashby MD LAB BLOOD BANK TEST ORDERA BLES Final Result Performing Organization Address [facility] Co de Phone Number [facility] [employer] [place] [address] * (ABNORMAL) Vancomycin level trough Draw trough 30 minutes prior to 4th dose. (08/26/2023 3:04 AM CDT) Pathologist [facility] Vancomycin trough <4.0(L) 10.0 - 20.0 mcg/mL [facility] Comment:Reviewed Blood 08/26/2023 3:04 AM CDT 08/26/2023 3:40 AM CDT Narrative [facility] - 08/26/2023 4:27 AM CDT Draw trough 30 minutes prior to 4th dose. us Olena Null MD LAB BLOOD ORDERABLES Final R esult [facility] [place] [address] * (ABNORMAL) Respiratory pathogen panel Nasopharyngeal (08/25/2023 5:34 PM CDT) Pathologist [facility] Influenza A RNA Not Detected Not Detected [facility] Influenza B RNA Not Detected Not Detected [facility] RSV RNA Not Detected Not Detected [facility] COVID-19 RNA Not Detected Not Detected [facility] Coronavirus 229E RNA Not Detected Not Detected [facility] Coronavirus HKU1 RNA Not Detected Not Detected [facility] Coronavirus NL63 RNA Not Detected Not Detected [facility] Coronavirus OC43 RNA Not Detected Not Detected [facility] Adenovirus DNA Not Detected Not Detected [facility] Metapneumovirus RNA Not Detected Not Detected [facility] Rhinovirus/Enterov irus RNA Detected(A) Not Detected [facility] Parainfluenza 1 RNA Not Detected Not Detected [facility] Parainfluenza 2 RNA Not Detected Not Detected [facility] Parainfluenza 3 RNA Not Detected Not Detected [facility] Parainfluenza 4 RNA Not Detected Not Detected [facility] B. pertussis DNA Not Detected Not Detected [facility] B. parapertussis DNA Not Detected Not Detected [facility] C. pneumoniae DNA Not Detected Not Detected [facility] M. pneumoniae DNA Not Detected Not Detected [facility] Nasopharyngeal 08/25/2023 5: 34 PM CDT 08/25/2023 5:43 PM CDT Narrative [facility] - 08/25/2023 7:14 PM CDT Is the Patient experiencing symptoms consistent with COVID?->Yes Date of Symptom Onset->08/23/23 Reason for testing?->Symptomatic Surveillance testing for transplant patient?->No ??Interpretive Data The [employer]otix FilmArray Respiratory Panel (RP2.1) assay is a [...] assay has FDA clearance for testing of COMPILATION CLERK swabs. ??The performance of additional specimen types has been assessed by the performing laboratory. ??The performance characteristics of this assay have been determined by [facility]. Current interpretive data was last revised on 22. us Karena Verdugo MD LAB MICROBIOLOGY - GENER AL ORDERABLES Final Result [facility] Department of Laboratories [place], [place] [id number] * US Vein Duplex Lower Extremity Bilateral Complete (08/25/2023 4:32 PM CDT) Anatomical Region Laterality Modality Vascular Bilateral Ultrasound 08/25/2023 5:52 PM CDT Narrative 08/25/2023 11:18 PM CDT [facility] - Department of Vascular Surgery, Vascular Laboratory [address] [place] [address] Lower Extremity Venous Ultrasound Report Patient Name: BEKA LARES J : 1995 (28y 6m) Study Date: 08/25/2023 5:52:54 PM Gender: M Tech: Lily BLACKWELL Location: [id number] Ref.Provider: KARENA MAK Quality: Adequate Order Provider: KARENA MAK Procedures: Vascular Report: Venous Duplex imaging was performed bilaterally in the lower extremities. The common femoral, femoral, popliteal, posterior tibial, peroneal veins were evaluated for patency, spontaneity and phasicity with Doppler, compression and augmentation maneuvers. Great saphenous vein proximal at the junction was evaluated with compression maneuvers. Indications: Edema. Findings: Performing Tool Inspector: Carol Blackwell RVT. Bilateral: Venous Doppler signals in the bilateral lower extremity are within normal limits for spontaneity and phasicity and respond normally to augmentation maneuvers. No evidence of deep vein thrombus by duplex, proximal to the calf. Conclusions: 1. There is no evidence of acute deep vein thrombosis in the lower extremities bilaterally. Noninvasive venous studies cannot rule out isolated calf vein obstruction. History: PE, Cancer. Previous Studies: No previous studies for comparison. Disclaimer: The study images and the final report will be retained in the patient chart by the Vascular Laboratory for the legally required time period. This chart constitutes the legal record of any testing performed. Attestation: I have reviewed and interpreted the pertinent images and measurements of this study. I attest to the conclusions in the final report that is provided above. Electronically Signed By: Severino Pickett MD [facility] 2023-08-25 23:18:29 CDT CC: CC: Procedure Note Severino Pickett MD - 08/25/2023 [facility] - Department of Vascular Surgery,Vascular Laboratory [address] [place] [address] Lower Extremity Venous Ultrasound Report Patient Name: BEKA LARES JPatient ID: [id number] : 1995 (28y 6m)Study Date: 08/25/2023 5:52:54 PM Gender: MAccession #: [id number] Tech: Lily AROLDONLocation: [id number] Ref.Provider: Disha MAKality: Adequate Order Provider: Ariel MAK #: [id number] Procedures: Vascular Report: Venous Duplex imaging was performed bilaterally in the lower extremities.The common femoral, femoral, popliteal, posterior tibial, peroneal veins wereevaluated for patency, spontaneity and phasicity with Doppler, compression and augmentationmaneuvers. Great saphenous vein proximal at the junction was evaluated with compressionmaneuvers. Indications: Edema. Findings: Performing Tool Inspector: Carol Blackwell RVT. Bilateral: Venous Doppler signals in the bilateral lower extremity are within normallimits for spontaneity and phasicity and respond normally to augmentation maneuvers.No evidence of deep vein thrombus by duplex, proximal to the calf. Conclusions: 1. There is no evidence of acute deep vein thrombosis in the lowerextremities bilaterally. Noninvasive venous studies cannot rule out isolated calf veinobstruction. History: PE, Cancer. Previous Studies: No previous studies for comparison. Disclaimer: The study images and the final report will be retained in the patientchart by the Vascular Laboratory for the legally required time period. This chartconstitutes the legal record of any testing performed. Attestation: I have reviewed and interpreted the pertinent images and measurements ofthis study. I attest to the conclusions in the final report that is provided above. Electronically Signed By: Severino Pickett MD [facility] 2023-08-25 23:18:29 CDT CC: CC: us Karena Verdugo MD [facility] PROCEDURES Final Result * Vancomycin level trough (08/25/2023 5:34 AM CDT) Vancomycin trough 10.3 10.0 - 20.0 mcg/mL [facility] Blood 08/25/2023 5:34 AM CDT 08/25/2023 5:42 AM CDT us Anita Gillespie MD LAB BLOOD ORDERABLES Final Result Performing Organization Address [facility]/ZIP Co de Phone Number [facility] Department [place] [address] * (ABNORMAL) Manual Differential (08/25/2023 5:33 AM CDT) [facility] Differential Auto [facility] RBC morphology Present(A) [facility] Anisocytosis Marked(A) [facility] Poikilocytosis Marked(A) [facility] Macrocytes > 15/HPF(A) [facility] Schistocytes 1-2/HPF(A) [facility] Acanthocytes 3-7/HPF(A) [facility] Echinocytes 8-15/HPF(A ) [facility] Blood 08/25/2023 5:33 AM CDT 08/25/2023 5:58 AM CDT us Olena Null MD LAB BLOOD ORDERABLES Final R esult Performing Organization Address City/[facility]/ZIP Co de Phone Number [facility] Department [place] [address] * eGFR (08/25/2023 5:33 AM CDT) [facility] eGFR >90 90 - 130 mL/min/1. 73 m2 [facility] Comment: Interpretive Data Reference Interval Normal ?>/= [...] interpretive data was last reviewed 2021. Blood 08/25/2023 5:33 AM CDT 08/25/2023 5:40 AM CDT us Karena Verdugo MD LAB BLOOD ORDERABLES Fin al Result [facility] [place] [address] * (ABNORMAL) Differential, auto (08/25/2023 5:33 AM CDT) Neutrophil abs 5.1 1.7 - 6.5 K/cumm [facility] Imm gran abs 0.1 0.0 - 0.1 K/cumm [facility] Lymphocyte abs 5.0(H) 0.8 - 3.3 K/cumm [facility] Monocyte abs 2.2(H) 0.2 - 0.8 K/cumm [facility] Eosinophil abs 0.9(H) 0.0 - 0.5 K/cumm [facility] Basophil abs 0.1 0.0 - 0.1 K/cumm [facility] Neutrophil pct 38.1 % [facility] Comment: Confirmed by smear review Interpretive Data Percent cell count reference ranges are not reported, since discordance with absolute values may lead to misinterpretation of CBC data. Current Interpretive Data was last revised on 2018. Imm gran pct 0.6 % [facility] Comment: Interpretive Data Percent cell count reference ranges are not reported, since discordance with absolute values may lead to misinterpretation of CBC data. Current Interpretive Data was last revised on 2018. Lymphocyte pct 37.6 % [facility] Comment: Interpretive Data Percent cell count reference ranges are not reported, since discordance with absolute values may lead to misinterpretation of CBC data. Current Interpretive Data was last revised on 2018. Monocyte pct 16.7 % [facility] Comment: Interpretive Data Percent cell count reference ranges are not reported, since discordance with absolute values may lead to misinterpretation of CBC data. Current Interpretive Data was last revised on 2018. Eosinophil pct 6.6 % [facility] Comment: Interpretive Data Percent cell count reference ranges are not reported, since discordance with absolute values may lead to misinterpretation of CBC data. Current Interpretive Data was last revised on 2018. Basophil pct 0.4 % [facility] Comment: Interpretive Data Percent cell count reference ranges are not reported, since discordance with absolute values may lead to misinterpretation of CBC data. Current Interpretive Data was last revised on 2018. Blood 08/25/2023 5:33 AM CDT 08/25/2023 5:40 AM CDT us Olena Null MD LAB BLOOD ORDERABLES Final R esult [facility] [place] [address] * Tacrolimus level trough (08/25/2023 5:33 AM CDT) Tacrolimus trough 4.2 ng/mL [facility] Comment: Interpretive Data Testing performed by liquid chromatography-tandem mass spectrometry. ??Therapeutic concentrations vary depending on type of transplanted organ and time elapsed since transplant. ??Typical trough concentrations range from 5-15 ng/mL. ??This test was developed and its performance characteristics determined by the [facility] consistent with CLIA requirements. ??This test has not been cleared or approved by the [place] Food and Drug administration. ??Current interpretive data last reviewed 2020. Blood 08/25/2023 5:33 AM CDT 08/25/2023 5:40 AM CDT Delia Ashby MD LAB BLOOD ORDERABLES Final Result Performing Organization Address City/[facility] Co de Phone Number [facility] Department [place] [employer] [place] [address] * (ABNORMAL) Hepatic function panel (08/25/2023 5:33 AM CDT) [facility] Bilirubin, total 5.1(H) 0.1 - 1.2 mg/dL [facility] Bilirubin, direct See Comment 0.1 - 0.3 mg/dL [facility] Comment:Credited; Hemolyzed Specimen Protein, pl 4.2(L) 6.5 - 8.5 g/dL [facility] Albumin 2.5(L) 3.5 - 5.0 g/dL [facility] Alk phos 213(H) 40 - 130 Units/L [facility] ALT 57(H) 7 - 55 Units/L [facility] AST 94(H) 10 - 50 Units/L [facility] Comment:Hemolyzed; result ma y be falsely elevated Blood 08/25/2023 5:33 AM CDT 08/25/2023 5:40 AM CDT Delia Ashby MD LAB BLOOD ORDERABLES Final Result Performing Organization Address City/[facility]/ZIP Co de Phone Number [facility] Department [place] [address] * (ABNORMAL) Basic metabolic panel (08/25/2023 5:33 AM CDT) Pathologist [facility] Sodium 140 135 - 145 mmol/L [facility] Potassium, pl 5.1(H) 3.3 - 4.9 mmol/L [facility] Comment:Hemolyzed; Potassium value may be falsely elevated by as much as 0.6-1.0 mmol/L. Suggest redraw and reanalysis. Chloride 112(H) 97 - 110 mmol/L [facility] CO2 21(L) 22 - 32 mmol/L [facility] Anion gap 7 2 - 15 mmol/L [facility] BUN 10 6 - 25 mg/dL [facility] Creatinine 0.84 0.80 - 1.30 mg/dL [facility] Glucose 83 70 - 199 mg/dL [facility] Comment: Interpretive Data Fasting glucose >/= [...] interpretive data was last revised 2022. Calcium 6.9(L) 8.5 - 10.3 mg/dL [facility] Blood 08/25/2023 5:33 AM CDT 08/25/2023 5:40 AM CDT us Delia Ashby MD LAB BLOOD ORDERABLES Final Result [facility] [place] [address] * Phosphorus (08/25/2023 5:33 AM CDT) Pathologist [facility] Phosphorus, pl 2.5 2.3 - 4.5 mg/dL [facility] Blood 08/25/2023 5:33 AM CDT 08/25/2023 5:40 AM CDT us Delia Ashby MD LAB BLOOD ORDERABLES Final Result Performing Organization Address City/[facility] de Phone Number [facility] [place] [address] * Magnesium (08/25/2023 5:33 AM CDT) Magnesium 1.9 1.4 - 2.5 mg/dL [facility] Blood 08/25/2023 5:33 AM CDT 08/25/2023 5:40 AM CDT us Delia Ashby MD LAB BLOOD ORDERABLES Final Result Performing Organization Address [facility] de Phone Number [facility] [place] [address] * (ABNORMAL) CBC with auto differential (08/25/2023 5:33 AM CDT) Pathologist [facility] WBC 13.3(H) 3.8 - 9.9 K/cumm [facility] Hgb 10.5(L) 13.0 - 17.5 g/dL [facility] Comment: Interpretive Data A reference range for this assay has not been established for patients with an unknown legal sex. Please refer to the laboratory test catalog for established sex-specific reference intervals. Current interpretive data was last revised on 2023. Hct 28.7(L) 38.9 - 50.3 % [facility] Comment: Interpretive Data A reference range for this assay has not been established for patients with an unknown legal sex. Please refer to the laboratory test catalog for established sex-specific reference intervals. Current interpretive data was last revised on 2023. Plt 256 150 - 400 K/cumm [facility] MPV 12.2 9.1 - 12.3 fL [facility] RBC 2.83(L) 4.30 - 5.80 M/cumm [facility] Comment: Interpretive Data A reference range for this assay has not been established for patients with an unknown legal sex. Please refer to the laboratory test catalog for established sex-specific reference intervals. Current interpretive data was last revised on 2023. MCV 101.4(H) 81.3 - 96.4 fL [facility] MCH 37.1(H) 27.1 - 33.3 pg [facility] MCHC 36.6(H) 32.3 - 35.7 g/dL [facility] RDW CV 18.9(H) 11.1 - 14.9 % [facility] RDW SD 69.3(H) 35.7 - 48.1 fL [facility] NRBC abs 0.00 0.00 - 0.01 K/cumm [facility] Blood 08/25/2023 5:33 AM CDT 08/25/2023 5:40 AM CDT Delia Ashby MD LAB BLOOD ORDERABLES Final Result [facility] [place] [address] * Blood culture Blood (08/24/2023 11:09 AM CDT) Report Final Report: No growth [facility] Blood 08/24/2023 11:0 9 AM CDT 08/24/2023 11:21 AM CDT Narrative [facility] - 08/28/2023 12:00 PM CDT Collection->Peripheral 1. ?Blood cultures [...] organism identification may be performed using the Gigitigene Gram-Positive Blood Culture Assay. This assay detects microbial DNA in positive blood culture broth via hybridization of target DNA to capture oligonucleotides on a microarray. This assay has been cleared by the [place] Food and Drug Administration and its performance characteristics have been verified by the [facility] Laboratory. 5. ?For questions about this culture, contact the Microbiology Laboratory at [phone]. Interpretive data was last revised on 2020. us Karena Verdugo MD LAB MICROBIOLOGY - GENER AL ORDERABLES Final Result [facility] [place] [address] * Blood culture Blood (08/24/2023 11:09 AM CDT) Report Final Report: No growth [facility] Blood 08/24/2023 11:0 9 AM CDT 08/24/2023 11:20 AM CDT Narrative [facility] - 08/28/2023 12:00 PM CDT Collection->Peripheral 1. ?Blood cultures [...] organism identification may be performed using the Verigene Gram-Positive Blood Culture Assay. This assay detects microbial DNA in positive blood culture broth via hybridization of target DNA to capture oligonucleotides on a microarray. This assay has been cleared by the [place] Food and Drug Administration and its performance characteristics have been verified by the [facility]. 5. ?For questions about this culture, contact the Microbiology Laboratory at [phone]. Interpretive data was last revised on 2020. us Karena Verdugo MD LAB MICROBIOLOGY - GENER AL ORDERABLES Final Result [facility] [place] [address] * TRANSTHORACIC ECHO (TTE) COMPLETE W DOPPLER/CF WO CONTRAST (08/24/2023 10:26 AM CDT) LV EF 62 % CARDIOREPORT Anatomical Region Laterality Modality Ultrasound 08/24/2023 7:00 AM CDT Narrative 08/24/2023 10:40 AM CDT Patient name: Beka Lares Date of test: 08/24/2023 Type of test: TTE w/Doppler Hospital #: [id number] Date of : 1995 (M) Tool Inspector: Saige Carrasco RDCS Referring Physician: OLENA NULL MD Contrast Agent: Contrast Administered by: Supervised/Interpreted by: Sharita Colorado MD Diagnosis: Location: [facility] Reason for test: peripheral edema MV Structure: Normal, ?MV Motion: Normal, ?? [...] Variable ?2D Linear Normal ? Aotic Root: 2.9 cm ?<4.0 ? Ao Indexed: 1.6 cm/M2 <2.0 ? LA: ? <4.0 ? RV: ? 4.4 cm ?<4.2 ? LV(ED): ? 4.9 cm ?<5.9 ? LV(ES): ? 3.2 cm ?<4.0 ?2D Vol. ?? Normal ?Indexed ?? Indexed Normal RA: ? 97.0 ml ? 55.1 ml/M2 ?11-39 ? LA: ? 80.0 ml ? 45.4 ml/M2 ?16-34 ? RV: ? <12.7 ? LV(ED): ? 133.0 ml ??62-150 ?75.5 ml/M2 ?<75 ? LV(ES): ? 51.0 ml ?? 21-61 ? 28.9 ml/M2 ?<32 ?3D Vol. ? Indexed Normal LV(ED): ?<75 ? LV(ES): ?<32 ? LV EF: 62 % ?? (Normal: >=52%) ?? LV Septum: 1.0 cm ?(Normal: <1.0 cm) Wall Motion Scoring (1=Normal 2=Hypo 3=Akinetic 4=Dyskin./Aneurysm 0=Not visualized) Parasternal Long Flushing:MAS=1 BAS=1 MIL=1 NGUYỄN=1 Parasternal Short Flushing:MAS=1 MIS=1 CA=1 MIL=1 MAL=1 MA=1 Apical 4 Chambers:=1 MIS=1 BIS=1 BAL=1 MAL=1 AL=1 AC=1 Apical 2 Chambers:AI=1 CA=1 BI=1 BA=1 MA=1 AA=1 AC=1 LV Global Longitudinal Strain: -22.5% ??(Normal <-17%) RV Global Longitudinal Strain: LV [...] MR MV Stenosis: no MS MV Area: ??cm2 MV Pressure Gradient (mmHg): Mean: 0 MV ERO: ??cm Regurg. Vol.: ??ml/beat Regurg. Frac.: ??% PA Pressure: ??mmHg DOPPLER/COLOR FOLOW DOPPLER COMMENTS: No AR seen, Mild MR, no , no MS, Trace TR, normal PV. Diastolic function: Normal SUMMARY: Normal LV and RV systolic function. Normal LV GLS. Increased chamber sizes after indexing to BSA. Normal aortic root size. Normal pericardium without effusion. LV wall thickness is normal. ? IVC size is normal and decreases >50% with inspiration. ??No AR seen, Mild MR, no , no MS, Trace TR, normal PV. Diastolic function: Normal. Confirmed on ??08/24/2023 - 10:40:28 by Sharita Colorado MD By signing this report, the attending operational review sergeant certifies that he or she has personally supervised and interpreted the echocardiogram and has reviewed and or edited and agrees with the written comments contained within the report. Procedure Note Sharita Colorado MD - 08/24/2023 Patient name: Beka Lares Date of test: 08/24/2023 Type of test: TTE w/Doppler [facility] #: 0 Date of : 1995 (M) Tool Inspector: Saige Carrasco RDCS Referring Physician: OLENA NULL MD Contrast Agent: Contrast Administered by: Supervised/Interpreted by: Sharita Colorado MD Diagnosis: Location: [facility] Reason for test: peripheral edema MV Structure: [...] 2=Hypo 3=Akinetic 4=Dyskin./Aneurysm 0=Not visualized) Parasternal Long Flushing:MAS=1 BAS=1 MIL=1 NGUYỄN=1 Parasternal Short Flushing:MAS=1 MIS=1 CA=1 MIL=1 MAL=1 MA=1 Apical 4 Chambers:=1 MIS=1 BIS=1 BAL=1 MAL=1 AL=1 AC=1 Apical 2 Chambers:AI=1 CA=1 BI=1 BA=1 MA=1 AA=1 AC=1 LV Global [...] Confirmed on 08/24/2023 - 10:40:28 by Sharita Cloorado MD By signing this report, the attending operational review sergeant certifies that he or she has personally supervised and interpreted the echocardiogram and has reviewed and or edited and agrees with the written comments contained within the report. us Olena Null MD CV ECHO PROCEDURES Final Res ult * eGFR (08/24/2023 3:31 AM CDT) Pathologist [facility] eGFR >90 90 - 130 mL/min/1. 73 m2 [facility] Comment: Interpretive Data Reference Interval Normal ?>/= [...] interpretive data was last reviewed 2021. Blood 08/24/2023 3:31 AM CDT 08/24/2023 3:50 AM CDT us Olena Null MD LAB BLOOD ORDERABLES Final R esult [facility] [place] [address] * (ABNORMAL) Differential, auto (08/24/2023 3:31 AM CDT) Neutrophil abs 7.9(H) 1.7 - 6.5 K/cumm [facility] Imm gran abs 0.1 0.0 - 0.1 K/cumm [facility] Lymphocyte abs 3.8(H) 0.8 - 3.3 K/cumm [facility] Monocyte abs 1.9(H) 0.2 - 0.8 K/cumm [facility] Eosinophil abs 0.5 0.0 - 0.5 K/cumm [facility] Basophil abs 0.1 0.0 - 0.1 K/cumm [facility] Neutrophil pct 55.1 % [facility] Comment: Interpretive Data Percent cell count reference ranges are not reported, since discordance with absolute values may lead to misinterpretation of CBC data. Current Interpretive Data was last revised on 2018. Imm gran pct 0.6 % [facility] Comment: Interpretive Data Percent cell count reference ranges are not reported, since discordance with absolute values may lead to misinterpretation of CBC data. Current Interpretive Data was last revised on 2018. Lymphocyte pct 26.8 % [facility] Comment: Interpretive Data Percent cell count reference ranges are not reported, since discordance with absolute values may lead to misinterpretation of CBC data. Current Interpretive Data was last revised on 2018. Monocyte pct 13.4 % [facility] Comment: Interpretive Data Percent cell count reference ranges are not reported, since discordance with absolute values may lead to misinterpretation of CBC data. Current Interpretive Data was last revised on 2018. Eosinophil pct 3.7 % [facility] Comment: Interpretive Data Percent cell count reference ranges are not reported, since discordance with absolute values may lead to misinterpretation of CBC data. Current Interpretive Data was last revised on 2018. Basophil pct 0.4 % [facility] Comment: Interpretive Data Percent cell count reference ranges are not reported, since discordance with absolute values may lead to misinterpretation of CBC data. Current Interpretive Data was last revised on 2018. Blood 08/24/2023 3:31 AM CDT 08/24/2023 3:49 AM CDT us Olena Null MD LAB BLOOD ORDERABLES Final R esult [facility] [place] [address] * (ABNORMAL) Protime-INR (08/24/2023 3:31 AM CDT) PT 17.2(H) 10.3 - 13.7 sec [facility] INR 1.51(H) 0.90 - 1.20 [facility] Comment: Interpretive data Oral anticoagulant therapeutic ranges: Venous thromboembolism prophylaxis or treatment: 2.0-3.0 CARDIOLOGY Standard range: 2.0-3.0 High-intensity range: 2.5-3.5 Refer to indication-specific guidelines for appropriate target ranges for prosthetic heart valve replacement. Current interpretive data was last revised on 2019. Blood 08/24/2023 3:31 AM CDT 08/24/2023 3:48 AM CDT Delia Ashby MD LAB BLOOD ORDERABLES Final Result Performing Organization Address [facility] de Phone Number [facility] [place] [address] * aPTT (08/24/2023 3:31 AM CDT) aPTT 34 28 - 38 sec [facility] Comment: Interpretive Data Heparin therapeutic range: 66.0 - 100.0 seconds. Range based on correlation with therapeutic heparin activity range of 0.3 - 0.7 Units/mL. Current interpretive data was last revised on 2023. Blood 08/24/2023 3:31 AM CDT 08/24/2023 3:48 AM CDT Result [facility] Delia Ashby MD LAB BLOOD ORDERABLES Final Result Performing Organization Address [facility] de Phone Number [facility] [place] [address] * (ABNORMAL) Lactate dehydrogenase (LD) (08/24/2023 3:31 AM CDT) Lactate dehydrogenase (LDH) 527(H) 100 - 250 Units/L [facility] Blood 08/24/2023 3:31 AM CDT 08/24/2023 3:50 AM CDT Narrative [facility] - 08/24/2023 4:18 AM CDT Wednesday and only. Morning draw. Delia Ashby MD LAB BLOOD ORDERABLES Final Result Performing Organization Address [facility] de Phone Number [facility] [place] [address] * Uric acid (08/24/2023 3:31 AM CDT) [facility] Uric acid 3.5 3.0 - 8.0 mg/dL [facility] Blood 08/24/2023 3:31 AM CDT 08/24/2023 3:50 AM CDT Narrative [facility] - 08/24/2023 4:18 AM CDT Wednesday and only. Morning draw. . Delia Ashby MD LAB BLOOD ORDERABLES Final Result Performing Organization Address City/[facility]/[place] [address] * Type and screen (08/24/2023 3:31 AM CDT) [facility] ABO Rh A Positive Carol, indirect Negative [facility] Comment:Patient has previous antibody history Blood 08/24/2023 3:31 AM CDT 08/24/2023 3:45 AM CDT Narrative [facility] - 08/24/2023 4:50 AM CDT Has the patient had Daratumumab or Isatuximab in the past 6 months?->Unknown us Delia Ashby MD LAB BLOOD BANK TEST ORDERA BLES Final Result [facility] [place] [address] * Phosphorus (08/24/2023 3:31 AM CDT) [facility] Phosphorus, pl 3.4 2.3 - 4.5 mg/dL [facility] Blood 08/24/2023 3:31 AM CDT 08/24/2023 3:50 AM CDT us Delia Ashby MD LAB BLOOD ORDERABLES Final Result [facility] [place] [address] * (ABNORMAL) Comprehensive metabolic panel (08/24/2023 3:31 AM CDT) Sodium 136 135 - 145 mmol/L [facility] Potassium, pl 4.2 3.3 - 4.9 mmol/L [facility] Chloride 108 97 - 110 mmol/L [facility] CO2 21(L) 22 - 32 mmol/L [facility] Anion gap 7 2 - 15 mmol/L [facility] BUN 10 6 - 25 mg/dL [facility] Creatinine 0.92 0.80 - 1.30 mg/dL [facility] Glucose 92 70 - 199 mg/dL [facility] Comment: Interpretive Data Fasting glucose >/= [...] 2022. Calcium 7.6(L) 8.5 - 10.3 mg/dL [facility] Bilirubin, total 5.2(H) 0.1 - 1.2 mg/dL [facility] Protein, pl 4.4(L) 6.5 - 8.5 g/dL [facility] Albumin 2.7(L) 3.5 - 5.0 g/dL [facility] Alk phos 245(H) 40 - 130 Units/L [facility] ALT 60(H) 7 - 55 Units/L [facility] AST 88(H) 10 - 50 Units/L [facility] Blood 08/24/2023 3:31 AM CDT 08/24/2023 3:50 AM CDT Olena Null MD LAB BLOOD ORDERABLES Final R esult [facility] [place] [address] * Magnesium (08/24/2023 3:31 AM CDT) Pathologist [facility] Magnesium 1.5 1.4 - 2.5 mg/dL [facility] Blood 08/24/2023 3:31 AM CDT 08/24/2023 3:50 AM CDT Delia Ashby MD LAB BLOOD ORDERABLES Final Result Performing Organization Address [facility] Co de Phone Number [facility] [place] [address] * (ABNORMAL) CBC with auto differential (08/24/2023 3:31 AM CDT) [facility] WBC 14.3(H) 3.8 - 9.9 K/cumm [facility] Hgb 10.4(L) 13.0 - 17.5 g/dL [facility] Comment: Interpretive Data A reference range for this assay has not been established for patients with an unknown legal sex. Please refer to the laboratory test catalog for established sex-specific reference intervals. Current interpretive data was last revised on 2023. Hct 28.4(L) 38.9 - 50.3 % [facility] Comment: Interpretive Data A reference range for this assay has not been established for patients with an unknown legal sex. Please refer to the laboratory test catalog for established sex-specific reference intervals. Current interpretive data was last revised on 2023. Plt 252 150 - 400 K/cumm [facility] MPV 12.2 9.1 - 12.3 fL [facility] RBC 2.79(L) 4.30 - 5.80 M/cumm [facility] Comment: Interpretive Data A reference range for this assay has not been established for patients with an unknown legal sex. Please refer to the laboratory test catalog for established sex-specific reference intervals. Current interpretive data was last revised on 2023. MCV 101.8(H) 81.3 - 96.4 fL [facility] MCH 37.3(H) 27.1 - 33.3 pg [facility] MCHC 36.6(H) 32.3 - 35.7 g/dL [facility] RDW CV 18.7(H) 11.1 - 14.9 % [facility] RDW SD 69.1(H) 35.7 - 48.1 fL [facility] NRBC abs 0.02(H) 0.00 - 0.01 K/cumm [facility] Blood 08/24/2023 3:31 AM CDT 08/24/2023 3:49 AM CDT us Delia Ashby MD LAB BLOOD ORDERABLES Final Result Performing Organization Address [facility] Co de Phone Number [facility] Department [place] [employer] [place] [address] * Protein / creatinine ratio, urine, random (08/23/2023 9:38 PM CDT) Protein, ur, quant 7.7 mg/dL [facility] Comment: Interpretive Data No reference range established. Current interpretive data was last revised 2019. Creatinine Ur 68.8 mg/dL [facility] Comment: Interpretive Data No reference range established. Current interpretive data was last revised 2019. Protein/creatinin e ratio 111.9 0.0 - 180.0 mg/g CR [facility] Urine 08/23/2023 9:38 PM CDT 08/23/2023 10:00 PM CDT Olena Null MD LAB URINE ORDERABLES Final R esult Performing Organization Address [facility]/ZIP Co de Phone Number [facility] Department [place] [address] * (ABNORMAL) Urinalysis reflex to microscopic and culture Urine (08/23/2023 9:38 PM CDT) Color, ur Yellow Yellow [facility] Clarity, ur Clear Clear [facility] Specific gravity, ur >1.042(H) 1.003 - 1.030 [facility] pH, urine 6.5 [facility] Comment: Interpretive Data ? Urine pH is affected by diet, medications, systemic acid-base disturbances, and renal tubular function. ??pH may affect urinary stone formation. ??For example, urine pH below 6.0 may help reduce the tendency for calcium phosphate stones and pH greater than 6.0 may reduce the tendency for uric acid stone formation. Source: [facility] [employer] Current Interpretive Data was last revised on 2017 Protein, ur ql Negative Negative [facility] Glucose, ur ql Negative Negative [facility] Ketones, ur Negative Negative [facility] Bilirubin, ur Negative Negative [facility] Blood, ur Negative Negative [facility] Urobilinogen, ur <2.0 <2.0 mg/dL [facility] Nitrite, ur Negative Negative [facility] Leukocyte esterase, ur Negative Negative [facility] UA reflex comment Reflex conditions for microscopic UA and culture not met. [facility] Urine 08/23/2023 9:38 PM CDT 08/23/2023 9:45 PM CDT us Olena Null MD LAB MICROBIOLOGY - GENERAL O RDERABLES Final Result [facility] [place] [address] * MRSA Only (Staphylococcus aureus) Culture Nasal (08/23/2023 9:38 PM CDT) Report Final Report: Negative [facility] Nasal 08/23/2023 9:38 PM CDT 08/23/2023 10:01 PM CDT Narrative [facility] - 08/25/2023 12:17 AM CDT Testing performed by [facility] ([phone]). Olena Null MD LAB MICROBIOLOGY - GENERAL O RDERABLES Final Result Performing Organization Address [facility] Co de Phone Number [facility] [place] [address] * Stool culture Stool Rectum (08/23/2023 5:57 PM CDT) Direct Specimen Exam Shiga Toxin Testing: Antigen detection assay for Shiga-toxin NEGATIVE for Shiga Toxin 1 and Shiga Toxin 2. [facility] Report Final Report: No growth of enteric bacterial pathogens [facility] Stool (Rectum) 08/23/2023 5: 57 PM CDT 08/23/2023 9:26 PM CDT Narrative [facility] - 08/27/2023 2:37 PM CDT Specimen received in a sterile container. Testing performed by [facility] ([phone]). Routine stool cultures include procedures to detect Salmonella, Shigella, Edwardsiella, Aeromonas, Pleisiomonas, Campylobacter, Yersinia, E. coli O157, and Shiga-like toxins. ?? Vibrio is cultured only upon special request. ??If Vibrio is suspected, please call the laboratory at [phone]. Interpretive data was last updated March 08, 2017. us Olena Null MD LAB MICROBIOLOGY - GENERAL O RDERABLES Final Result Performing Organization Address [facility] Co de Phone Number [facility] [place] [address] * Leukocytes, fecal (08/23/2023 5:57 PM CDT) WBC, fecal No leukocytes No leukocytes [facility] Comment: Interpretive Data Testing performed by microsopy. Current Interpretive Data was last revised on 2023 Stool 08/23/2023 5:57 PM CDT 08/23/2023 9:48 PM CDT us Olena Null MD LAB BODY FLUIDS AND STOOLS O RDERABLES Final Result Performing Organization Address City/[facility]/ZIP Co de Phone Number [facility] [place] [address] * TSH reflex to free T4 (08/23/2023 5:47 PM CDT) Pathologist [facility] TSH 3.92 0.30 - 4.20 mcIUnit/mL [facility] Blood 08/23/2023 5:47 PM CDT 08/23/2023 6:19 PM CDT us Anita Gillespie MD LAB BLOOD ORDERABLES Final Result Performing Organization Address [facility] Co de Phone Number [facility] [place] [address] * Folate (08/23/2023 5:47 PM CDT) [facility] Folic acid See Comment >=5.0 ng/mL [facility] Comment: Credited; Hemolyzed Specimen Telephone report made to: Nancy Alvarez (RN) on 08/23/2023 19:29:48 CDT by Nidhi . Blood 08/23/2023 5:47 PM CDT 08/23/2023 6:19 PM CDT us Anita Gillespie MD LAB BLOOD ORDERABLES Final Result Performing Organization Address City/[facility]/ZIP Co de Phone Number [facility] [place] [address] * (ABNORMAL) Vitamin B12 (08/23/2023 5:47 PM CDT) Pathologist [facility] Vitamin B12 1,349(H) 230 - 1,250 pg/mL [facility] Blood 08/23/2023 5:47 PM CDT 08/23/2023 6:19 PM CDT us Anita Gillespie MD LAB BLOOD ORDERABLES Final Result Performing Organization Address [facility] Co de Phone Number [facility] Department [place] [employer] [place] [address] * eGFR (08/23/2023 5:47 PM CDT) eGFR >90 90 - 130 mL/min/1. 73 m2 [facility] Comment: Interpretive Data Reference Interval Normal ?>/= [...] interpretive data was last reviewed 2021. Blood 08/23/2023 5:47 PM CDT 08/23/2023 6:19 PM CDT us Olena Null MD LAB BLOOD ORDERABLES Final R esult Performing Organization Address [facility] Co de Phone Number [facility] Department [place] [employer] [place] [address] * (ABNORMAL) Differential, auto (08/23/2023 5:47 PM CDT) Neutrophil abs 6.7(H) 1.7 - 6.5 K/cumm [facility] Imm gran abs 0.1 0.0 - 0.1 K/cumm [facility] Lymphocyte abs 4.4(H) 0.8 - 3.3 K/cumm [facility] Monocyte abs 2.0(H) 0.2 - 0.8 K/cumm [facility] Eosinophil abs 0.6(H) 0.0 - 0.5 K/cumm [facility] Basophil abs 0.1 0.0 - 0.1 K/cumm [facility] Neutrophil pct 48.4 % [facility] Comment: Interpretive Data Percent cell count reference ranges are not reported, since discordance with absolute values may lead to misinterpretation of CBC data. Current Interpretive Data was last revised on 2018. Imm gran pct 0.4 % [facility] Comment: Interpretive Data Percent cell count reference ranges are not reported, since discordance with absolute values may lead to misinterpretation of CBC data. Current Interpretive Data was last revised on 2018. Lymphocyte pct 32.0 % [facility] Comment: Interpretive Data Percent cell count reference ranges are not reported, since discordance with absolute values may lead to misinterpretation of CBC data. Current Interpretive Data was last revised on 2018. Monocyte pct 14.4 % [facility] Comment: Interpretive Data Percent cell count reference ranges are not reported, since discordance with absolute values may lead to misinterpretation of CBC data. Current Interpretive Data was last revised on 2018. Eosinophil pct 4.4 % [facility] Comment: Interpretive Data Percent cell count reference ranges are not reported, since discordance with absolute values may lead to misinterpretation of CBC data. Current Interpretive Data was last revised on 2018. Basophil pct 0.4 % [facility] Comment: Interpretive Data Percent cell count reference ranges are not reported, since discordance with absolute values may lead to misinterpretation of CBC data. Current Interpretive Data was last revised on 2018. Blood 08/23/2023 5:47 PM CDT 08/23/2023 6:19 PM CDT Olena Null MD LAB BLOOD ORDERABLES Final R esult Performing Organization Address City/[facility] Co de Phone Number [facility] [place] [address] * Type and screen (08/23/2023 5:47 PM CDT) Pathologist [facility] Carol, indirect Negative Comment:Patient has previous antibody history ABO Rh A Positive [facility] Blood 08/23/2023 5:47 PM CDT 08/23/2023 5:59 PM CDT Narrative [facility] - 08/23/2023 7:10 PM CDT Has the patient had Daratumumab or Isatuximab in the past 6 months?->Unknown Olena Null MD LAB BLOOD BANK TEST ORDERABL ES Final Result Performing Organization Address [facility] Co de Phone Number [facility] Department [place] [address] * Phosphorus (08/23/2023 5:47 PM CDT) [facility] Phosphorus, pl 4.4 2.3 - 4.5 mg/dL [facility] Blood 08/23/2023 5:47 PM CDT 08/23/2023 6:19 PM CDT Olena Null MD LAB BLOOD ORDERABLES Final R esult Performing Organization Address [facility] Co de Phone Number [facility] [place] [address] * Magnesium (08/23/2023 5:47 PM CDT) [facility] Magnesium 1.6 1.4 - 2.5 mg/dL [facility] Blood 08/23/2023 5:47 PM CDT 08/23/2023 6:19 PM CDT us Olena Null MD LAB BLOOD ORDERABLES Final R esult [facility] [place] [address] * (ABNORMAL) Comprehensive metabolic panel (08/23/2023 5:47 PM CDT) Pathologist [facility] Sodium 140 135 - 145 mmol/L [facility] Potassium, pl 5.2(H) 3.3 - 4.9 mmol/L [facility] Comment:Hemolyzed; Potassium value may be falsely elevated by as much as 0.3-0.5 mmol/L. Suggest redraw and reanalysis. Chloride 111(H) 97 - 110 mmol/L [facility] CO2 21(L) 22 - 32 mmol/L [facility] Anion gap 8 2 - 15 mmol/L [facility] BUN 9 6 - 25 mg/dL [facility] Creatinine 0.69(L) 0.80 - 1.30 mg/dL [facility] Glucose 89 70 - 199 mg/dL [facility] Comment: Interpretive Data Fasting glucose >/= [...] interpretive data was last revised 2022. Calcium 8.3(L) 8.5 - 10.3 mg/dL [facility] Bilirubin, total 4.5(H) 0.1 - 1.2 mg/dL [facility] Protein, pl 4.9(L) 6.5 - 8.5 g/dL [facility] Albumin 3.1(L) 3.5 - 5.0 g/dL [facility] Alk phos 263(H) 40 - 130 Units/L [facility] ALT 70(H) 7 - 55 Units/L [facility] AST 101(H) 10 - 50 Units/L [facility] Comment:Hemolyzed; result ma y be falsely elevated Blood 08/23/2023 5:47 PM CDT 08/23/2023 6:19 PM CDT Olena Null MD LAB BLOOD ORDERABLES Final R esult [facility] [place] [address] * (ABNORMAL) CBC with auto differential (08/23/2023 5:47 PM CDT) [facility] WBC 13.8(H) 3.8 - 9.9 K/cumm [facility] Hgb 11.6(L) 13.0 - 17.5 g/dL [facility] Comment: Interpretive Data A reference range for this assay has not been established for patients with an unknown legal sex. Please refer to the laboratory test catalog for established sex-specific reference intervals. Current interpretive data was last revised on 2023. Hct 31.8(L) 38.9 - 50.3 % [facility] Comment: Interpretive Data A reference range for this assay has not been established for patients with an unknown legal sex. Please refer to the laboratory test catalog for established sex-specific reference intervals. Current interpretive data was last revised on 2023. Plt 254 150 - 400 K/cumm [facility] MPV 11.4 9.1 - 12.3 fL [facility] RBC 3.10(L) 4.30 - 5.80 M/cumm [facility] Comment: Interpretive Data A reference range for this assay has not been established for patients with an unknown legal sex. Please refer to the laboratory test catalog for established sex-specific reference intervals. Current interpretive data was last revised on 2023. MCV 102.6(H) 81.3 - 96.4 fL [facility] MCH 37.4(H) 27.1 - 33.3 pg [facility] MCHC 36.5(H) 32.3 - 35.7 g/dL [facility] RDW CV 19.2(H) 11.1 - 14.9 % [facility] RDW SD 71.3(H) 35.7 - 48.1 fL [facility] NRBC abs 0.00 0.00 - 0.01 K/cumm [facility] Blood 08/23/2023 5:47 PM CDT 08/23/2023 6:19 PM CDT us Olena Null MD LAB BLOOD ORDERABLES Final R esult [facility] [place] [address] documented in this encounter Visit Diagnoses Diagnosis Fever in adult- Primary History of liver transplant (CMS/HCC) (HCC) 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) Jaundice Jaundice, unspecified, not of Immunocompromised patient (HCC) Colitis Other and unspecified noninfectious gastroenteritis and colitis Gram-negative bacteremia Unspecified septicemia 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 History of liver transplant (CMS/HCC) (HCC) 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 Elevated LFTs Other abnormal blood chemistry Eustachian tube dysfunction, bilateral Macrocytic anemia Ansarca Edema Gram-negative bacteremia Unspecified septicemia Rhinovirus Rhinovirus infection in conditions classified elsewhere and of unspecified site Hypocalcemia and hypomagnesemia Hypocalcemia Jaundice Jaundice, unspecified, not of Acute superficial DVT of left upper extremity Immunocompromised patient (HCC) Colitis Other and unspecified noninfectious gastroenteritis and colitis documented in this encounter Admitting Diagnoses Diagnosis Fever in adult Jaundice Jaundice, unspecified, not of Immunocompromised patient (HCC) Colitis Other and unspecified noninfectious gastroenteritis and colitis documented in this encounter Administered Medications Inactive Administered Medications - up to 3 most recent administrations Medication Order MAR Action Action Date Dose Rate Site budesonide (PULMICORT) 0.5 mg/2 mL nebulizer solution 0.5 mg 0.5 mg, nebulization, Daily, First dose on Wed08/23/23 at 1745, Rinse mouth with water after use. Do not swallow. Given 08/24/2023 1:30 PM CDT 0.5 mg budesonide (PULMICORT) 0.5 mg/2 mL nebulizer solution 0.5 mg 0.5 mg, nebulization, Daily (respiratory support technician), First dose (after last modification) on Wed08/25/23 at 0800, Rinse mouth with water after use. Do not swallow. Given 09/03/2023 9:12 AM CDT 0.5 mg Given 09/02/2023 8:03 AM CDT 0.5 mg Given 09/01/2023 8:46 AM CDT 0.5 mg calcium gluconate 2 g/100 mL in sodium chloride (premix) solution 2 g 2 g, intravenous, Administer over 60 Minutes, Once, On Wed08/27/23 at 0845, For 1 dose, Room temperature only, Indications: hypocalcemiaIndications:hypocalc emia New Bag 08/27/2023 10:12 AM CDT 2 g calcium gluconate 3 g in sodium chloride 0.9% 100 mL IVPB 3 g, intravenous, at 130 mL/hr, Administer over 60 Minutes, Once, On 08/28/23 at 0930, For 1 dose, Indications: hypocalcemiaIndications:hypocalc emia New Bag 08/28/2023 1:31 PM CDT 3 g 130 mL/hr Carrier Fluids for Secondary Infusion - 0.9% Sodium Chloride 30 mL, intravenous, As needed, For priming tubing and/or flushing, Starting on Wed08/23/23 at 1708, 0-250 ml/hr to flush line after IV infusions when no maintenance IV ordered. Infuse 30mL at the same rate as the secondary infusion. Run as primary IV, not intended for KVO. Given 08/28/2023 1:38 PM CDT 30 mL Carrier Fluids for Secondary Infusion - 0.9% Sodium Chloride 30 mL, intravenous, As needed, For priming tubing and/or flushing, Starting on Wed08/31/23 at 1802, 0-250 ml/hr to flush line after IV infusions when no maintenance IV ordered. Infuse 30mL at the same rate as the secondary infusion. Run as primary IV, not intended for KVO. Carrier Fluids for Secondary Infusion - 0.9% Sodium Chloride 30 mL, intravenous, As needed, For priming tubing and/or flushing, Starting on Wed08/31/23 at 1810, 0-250 ml/hr to flush line after IV infusions when no maintenance IV ordered. Infuse 30mL at the same rate as the secondary infusion. Run as primary IV, not intended for KVO. cefTRIAXone (ROCEPHIN) 2,000 mg/20 mL in sterile water (premix) 2,000 mg 2,000 mg, intravenous, at 1,200 mL/hr, Administer over 1 Minutes, Every 24 hours scheduled, First dose on Brenda 08/26/23 at 1145, Indications: Blood Stream/Endovascular InfectionIndications:Blood Stream/Endovascular Infection Given 08/31/2023 8:10 AM CDT 2,000 mg 1 200 mL/hr Given 08/30/2023 9:17 AM CDT 2,000 mg 1200 mL/hr Given 08/29/2023 8:49 AM CDT 2,000 mg 1200 mL/hr cefTRIAXone (ROCEPHIN) 2,000 mg/20 mL in sterile water (premix) 2,000 mg 2,000 mg, intravenous, at 1,200 mL/hr, Administer over 1 Minutes, Every 24 hours scheduled, First dose on Wed08/31/23 at 1945, Indications: Blood Stream/Endovascular InfectionIndications:Blood Stream/Endovascular Infection Given 08/31/2023 8:48 PM CDT 2,000 mg 1 200 mL/hr cefTRIAXone (ROCEPHIN) 2,000 mg/20 mL in sterile water (premix) 2,000 mg 2,000 mg, intravenous, at 1,200 mL/hr, Administer over 1 Minutes, Every 24 hours scheduled, First dose (after last reorder) on Wed09/01/23 at 1945, Indications: Blood Stream/Endovascular InfectionIndications:Blood Stream/Endovascular Infection Given 09/02/2023 7:55 PM CDT 2,000 mg 1 200 mL/hr Given 09/01/2023 8:21 PM CDT 2,000 mg 1200 mL/hr ciprofloxacin (CIPRO) tablet 500 mg 500 mg, oral, 2 times daily (for quinolones,etc), First dose on Wed08/31/23 at 1800, Administer ciprofloxacin at least 2 hours before or 6 hours after antacids (containing aluminum or magnesium), calcium or calcium containing foods such as milk or yogurt, MVI (containing iron or zinc), iron, zinc, sucralfate or buffered meds such as didanosine., Indications: Abdominal/Pelvic InfectionIndications:Abdominal/Pel hasmukh Infection Given 08/31/2023 5:22 PM CDT 500 mg dextrose 5% infusion 75 mL/hr, intravenous, Continuous, Starting on Wed08/31/23 at 2315 New 08/31/2023 11:24 PM CDT 75 mL/h r 75 mL/hr foscarnet (FOSCAVIR) 24 mg/mL injection 6,000 mg 6,000 mg, intravenous, Administer over 2 Hours, Every 12 hours scheduled, First dose on Wed09/03/23 at 1200, Central line only, Indications: Blood Stream/Endovascular InfectionIndications:Blood Stream/Endovascular Infection New 09/03/2023 11:49 AM CDT 6,000 mg foscarnet (FOSCAVIR) 3,900 mg in sodium chloride 0.9% 325 mL (12 mg/mL) IVPB 3,900 mg (rounded from 3,840 mg = 60 mg/kg ? 64 kg), intravenous, Administer over 2 Hours, Every 8 hours scheduled, First dose on Wed08/24/23 at 1900, Peripheral line only, Indications: Blood Stream/Endovascular InfectionIndications:Blood Stream/Endovascular Infection New 09/03/2023 3:03 AM CDT 3,900 mg 09/02/2023 7:55 PM CDT 3,900 mg New 09/02/2023 11:18 AM CDT 3,900 mg furosemide (LASIX) 10 mg/mL injection 40 mg 40 mg, intravenous, Once, On Wed08/24/23 at 1630, For 1 dose, For IV push: administer doses < 160 mg at a rate of 20 -40 mg/min. Doses >/= 160 mg should be administered no faster than 4 mg/min. Room temperature only Given 08/24/2023 4:2 2 PM CDT 40 mg furosemide (LASIX) 10 mg/mL injection 40 mg 40 mg, intravenous, Once, On Wed08/25/23 at 1615, For 1 dose, For IV push: administer doses < 160 mg at a rate of 20 -40 mg/min. Doses >/= 160 mg should be administered no faster than 4 mg/min. Room temperature only Given 08/25/2023 5:2 7 PM CDT 40 mg furosemide (LASIX) 10 mg/mL injection 60 mg 60 mg, intravenous, Once, On Brenda 08/26/23 at 1215, For 1 dose, For IV push: administer doses < 160 mg at a rate of 20 -40 mg/min. Doses >/= 160 mg should be administered no faster than 4 mg/min. Room temperature only Given 08/26/2023 12: 46 PM CDT 60 mg furosemide (LASIX) 10 mg/mL injection 60 mg 60 mg, intravenous, Daily, First dose (after last reorder) on Wed08/27/23 at 0900, For IV push: administer doses < 160 mg at a rate of 20 -40 mg/min. Doses >/= 160 mg should be administered no faster than 4 mg/min. Room temperature only Given 08/28/2023 9:28 AM CDT 60 mg Given 08/27/2023 9:00 AM CDT 60 mg furosemide (LASIX) 10 mg/mL injection 60 mg 60 mg, intravenous, 2 times daily (for diuretics), First dose (after last modification) on 08/28/23 at 1600, For IV push: administer doses < 160 mg at a rate of 20 -40 mg/min. Doses >/= 160 mg should be administered no faster than 4 mg/min. Room temperature only Given 08/28/2023 4:43 PM CDT 60 mg furosemide (LASIX) 10 mg/mL injection 60 mg 60 mg, intravenous, 2 times daily (for diuretics), First dose on Wed08/30/23 at 1800, For IV push: administer doses < 160 mg at a rate of 20 -40 mg/min. Doses >/= 160 mg should be administered no faster than 4 mg/min. Room temperature only Given 09/02/2023 8:48 AM CDT 60 mg Given 09/01/2023 8:43 AM CDT 60 mg Given 08/31/2023 3:39 PM CDT 60 mg furosemide (LASIX) tablet 40 mg 40 mg, oral, Daily, First dose on Brenda 09/02/23 at 1615 Given 09/03/2023 8:10 AM CDT 40 mg Given 09/02/2023 5:50 PM CDT 40 mg gadoterate meglumine injection 13 mL 13 mL, intravenous, Once in imaging, contrast, Starting on Wed08/26/23 at 0948, For 1 dose Contrast Given 08/26/2023 9:49 AM CDT 13 mL heparin 10 unit/mL flush 20-50 Units 20-50 Units (2-5 mL), intra-catheter, As needed, line care, with each use, Starting on Wed08/23/23 at 1705, Do not use with Groshong catheter. Do not use with peripheral IV Flush volume based on line type, size, and protocol., Indications: Maintain Patency of Indwelling Vascular CatheterIndications:Maintain Patency of Indwelling Vascular Catheter Given 09/01/2023 8:27 PM CDT 50 Units Given 08/31/2023 9:02 PM CDT 50 Units immune globulin (GAMUNEX-C,GAMMAKED) 10 % infusion 25 g 25 g (rounded from 27.36 g = 400 mg/kg ? 68.4 kg [place] weight), intravenous, Once, On Wed08/31/23 at 1330, For 1 dose, Administer over: 1 mg/kg/min x 30 minutes, then 2 mg/kg/min x 30 minutes, then 4 mg/kg/min x 30 minutes, then 6 mg/kg/min x 30 minutes, then 8 mg/kg/min until infusion complete. 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, mild/moderate Rate/Dose Change 08/31/2023 5:39 PM CDT 328 mL/hr Rate/Dose Change 08/31/2023 5:10 PM CDT 246 mL/ hr Rate/Dose Change 08/31/2023 4:41 PM CDT 164 mL/ hr magnesium oxide (MAG-OX) tablet 400 mg 400 mg, oral, 2 times daily, First dose on Wed08/27/23 at 1245, 1 tablet = Magnesium oxide 400 mg = 241.3 mg elemental magnesium, Indications: hypomagnesemiaIndications:hypomagnesemia Given 09/03/2023 8:11 AM CDT 400 mg Given 09/02/2023 9:08 PM CDT 400 mg Given 09/02/2023 8:49 AM CDT 400 mg magnesium sulfate 2 g/50 mL in water (premix) 2 g 2 g, intravenous, Administer over 60 Minutes, Once, On Wed08/31/23 at 1230, For 1 dose New Bag 08/31/2023 1:02 PM CDT 2 g magnesium sulfate 4 g/100 mL in water (premix) 4 g 4 g, intravenous, Administer over 90 Minutes, Every 4 hours PRN, magnesium replacement, Starting on Wed08/23/23 at 1709, For magnesium level of 1.2-1.5 mg/dL, Indications: hypomagnesemiaIndications:hypomagnesemia New Bag 09/03/2023 6:22 AM CDT 4 g New Bag 08/27/2023 6:00 AM CDT 4 g New Bag 08/24/2023 6:03 AM CDT 4 g maribavir (LIVTENCITY) tablet 400 mg 400 mg, oral, 2 times daily, First dose on Wed08/23/23 at 2100, [facility] appropriate use criteria for maribavir are limited to the following below options. It is recommended that therapy for infections outside of these indications be discussed with infectious diseases, if available. Refractory CMV infection, Indications: Blood Stream/Endovascular InfectionIndications:Blood Stream/Endovascular Infection Given 08/24/2023 8:53 AM CDT 400 mg Given 08/23/2023 11:00 PM CDT 400 mg metroNIDAZOLE (FLAGYL) tablet 500 mg 500 mg, oral, 3 times daily, First dose on Brenda 08/26/23 at 1600, Indications: Blood Stream/Endovascular InfectionIndications:Blood Stream/Endovascular Infection Given 09/03/2023 8:10 AM CDT 500 mg Given 09/02/2023 9:09 PM CDT 500 mg Given 09/02/2023 3:43 PM CDT 500 mg ondansetron (ZOFRAN) injection 8 mg 8 mg, intravenous, Administer over 2 Minutes, Every 8 hours PRN, nausea, vomiting, if not tolerating PO, Starting on Wed08/23/23 at 1710 ondansetron (ZOFRAN) tablet 8 mg 8 mg, oral, Every 8 hours PRN, nausea, vomiting, Starting on Wed08/23/23 at 1710, May administer IV if not tolerating oral. piperacillin-tazobactam (ZOSYN) 3.375 gram/65 mL in sodium chloride 0.9% (premix) 3.375 g 3.375 g, intravenous, at 130 mL/hr, Administer over 30 Minutes, Every 6 hours scheduled, First dose on Wed08/23/23 at 1845, Indications: Abdominal/Pelvic InfectionIndications:Abdominal/Pe lvic Infection New Bag 08/24/2023 12:22 PM CDT 3.375 g 130 mL/hr New Bag 08/24/2023 5:55 AM CDT 3.375 g 130 mL/hr Bag 08/24/2023 12:06 AM CDT 3.375 g 130 mL/hr piperacillin-tazobactam (ZOSYN) 4.5 gram/120 mL in sodium chloride 0.9% (premix) 4.5 g 4.5 g, intravenous, at 240 mL/hr, Administer over 0.5 Hours, Every 6 hours scheduled, First dose (after last modification) on Wed08/24/23 at 1800, Indications: Abdominal/Pelvic InfectionIndications:Abdominal/Pelvi c Infection New Bag 08/26/2023 5:34 AM CDT 4.5 g 240 mL/hr New Bag 08/26/2023 12:32 AM CDT 4.5 g 240 mL/hr New Bag 08/25/2023 6:24 PM CDT 4.5 g 240 mL/hr polyethylene glycol (GoLYTELY) solution 2,000 mL 2,000 mL, oral, 2 times daily, First dose on Wed08/31/23 at 1700, For 2 doses, Administer 2 liters (half of jug) at 17:00 the evening before the procedure and 2 liters (half of jug) at 4:00 the morning of the procedure. Starting at 17:00 have patient rapidly drink 8 ounces of solution every 10 minutes until half of jug (2 liters) is empty. Do not sip. If patient becomes nauseated, decrease frequency of 8 ounces of solution to every 20 minutes. Solution should be completed within 2 hours. The morning of the procedure 04:00 have patient rapidly drink 8 ounces every 10 minutes until remaining 2 liters of solution are empty. Using the container provided, add lukewarm water (may use tap water) up to the 4 L water warren; shake vigorously several times to ensure dissolution of the powder., Indications: Bowel EvacuationIndications:Bowel Evacuation Given 09/01/2023 12:01 AM CDT 2,000 mL Given 08/31/2023 5:21 PM CDT 2,000 mL potassium chloride ER (KLOR-CON) extended release tablet 20 mEq 20 mEq, oral, Daily, First dose on 08/29/23 at 0900, Tablets should not be crushed, chewed, dissolved, or otherwise manipulated. Capsules may be opened and sprinkled on a spoonful of applesauce or pudding, but the contents of the capsule should not be crushed or chewed. Given 09/03/2023 8:09 AM CDT 20 mEq Given 09/02/2023 8:48 AM CDT 20 mEq Given 09/01/2023 8:43 AM CDT 20 mEq potassium chloride ER (KLOR-CON) extended release tablet 40 mEq 40 mEq, oral, Every 2 hours PRN, potassium replacement, Starting on Wed08/23/23 at 1709, HOLD dose and contact prescriber/provider if any [...] not be crushed or chewed., Indications: hypokalemiaIndications:hypokalemia Given 08/28/2023 5:00 AM CDT 40 mEq sodium chloride 0.9% bolus 500 mL 500 mL, intravenous, Once, On Wed08/24/23 at 1815, For 1 dose, Administer prior to first foscarnet IV infusion, Indications: pre-hydration for foscarnetIndications:pre-hydration for foscarnet New Bag 08/24/2023 7:20 PM CDT 500 mL sodium chloride 0.9% bolus 500 mL 500 mL, intravenous, at 250 mL/hr, Administer over 2 Hours, Every 8 hours scheduled, First dose on Wed08/24/23 at 1900, Administer NS concommitantly with all subsequent doses of foscarnet IV infusion after the first dose., Indications: concurrent hydration with foscarnetIndications:concurrent hydration with foscarnet New Bag 09/03/2023 3:03 AM CDT 500 mL 250 mL /hr New Bag 09/02/2023 7:54 PM CDT 500 mL 250 mL/hr New Bag 09/02/2023 11:18 AM CDT 500 mL 250 mL/hr sodium chloride 0.9% bolus 500 mL 500 mL, intravenous, at 250 mL/hr, Administer over 2 Hours, Every 12 hours scheduled, First dose on Wed09/03/23 at 1100, Administer NS concommitantly with all subsequent doses of foscarnet IV infusion after the first dose., Indications: concurrent hydration with foscarnetIndications:concurrent hydration with foscarnet New Bag 09/03/2023 11:49 AM CDT 500 mL 250 m L/hr sodium chloride 0.9% flush 0.5-20 mL 0.5-20 mL, intra-catheter, Every 8 hours scheduled, First dose on Wed08/23/23 at 1745, Flush volume based on line type and size. Given 08/30/2023 1:51 PM CDT 10 mL Given 08/29/2023 1:47 PM CDT 10 mL Given 08/29/2023 5:14 AM CDT 10 mL sodium chloride 0.9% flush 0.5-20 mL 0.5-20 mL, intra-catheter, Every 8 hours scheduled, First dose on Wed09/03/23 at 0830, Pre-Procedure (GI), Flush volume based on line type and size. Given 09/03/2023 8:05 AM CDT 10 mL sodium chloride 0.9% flush 0.5-20 mL 0.5-20 mL, intra-catheter, As needed, line care, Starting on Wed09/03/23 at 0751, Pre-Procedure (GI), Flush volume based on line type and size. Flush before and after each use. sodium chloride 0.9% flush 0.5-20 mL 0.5-20 mL, intra-catheter, Every 8 hours scheduled, First dose on Wed08/31/23 at 2200, Flush volume based on line type and size. sodium chloride 0.9% flush 0.5-20 mL 0.5-20 mL, intra-catheter, As needed, line care, Starting on Wed08/31/23 at 1802, Flush volume based on line type and size. Flush before and after each use. sodium chloride 0.9% flush 0.5-20 mL 0.5-20 mL, intra-catheter, Every 8 hours scheduled, First dose on Wed08/31/23 at 2200, Flush volume based on line type and size. Given 09/03/2023 6:23 AM CDT 10 mL Given 09/02/2023 10:01 PM CDT 10 mL sodium chloride 0.9% flush 0.5-20 mL 0.5-20 mL, intra-catheter, As needed, line care, Starting on Wed08/31/23 at 1810, Flush volume based on line type and size. Flush before and after each use. sodium chloride 0.9% flush 5-10 mL 5-10 mL, intra-catheter, Every 12 hours scheduled, First dose on Wed08/31/23 at 2100, Flush volume based on line type, size, and protocol. Given 09/03/2023 8:06 AM CDT 10 mL Given 09/02/2023 9:10 PM CDT 10 mL Given 09/02/2023 8:50 AM CDT 10 mL sodium chloride 0.9% flush 5-20 mL 5-20 mL, intra-catheter, As needed, line care, with each use, Starting on Wed08/31/23 at 1510, Flush volume based on line type, size, and protocol. sodium chloride 0.9% infusion 30 mL/hr, intravenous, Continuous PRN, KVO for medication administrations, Starting on 08/23/23 at 1705 New Bag 08/28/2023 1:33 PM CDT 30 mL/hr 30 mL/hr Rate/Dose Verify 08/27/2023 1:27 PM CDT 30 mL/h r New Bag 08/24/2023 5:55 AM CDT 30 mL/hr 30 mL/hr sodium chloride 0.9% infusion 30 mL/hr, intravenous, Continuous, Starting on Wed09/01/23 at 1130, For 6 hours, Pre-Procedure (GI) New Bag 09/01/2023 11:00 AM CDT 30 mL/hr 30 mL/hr sodium chloride 0.9% infusion 50 mL/hr, intravenous, Continuous, Starting on Wed09/01/23 at 1700, Phase I New Bag 09/01/2023 5:56 PM CDT 50 mL/hr 50 mL/ hr sodium phosphate - potassium phosphate (K-PHOS NEUTRAL) tablet 250 mg 250 mg, oral, 2 times daily with meals (bkfst, dinner), First dose on Wed08/28/23 at 0930, Each tablet contains elemental phosphorus 250 mg (8 mmol), potassium 45 mg (1.1 mEq), and sodium 298 mg (13 mEq). Given 09/03/2023 8:11 AM CDT 250 mg Given 09/02/2023 5:50 PM CDT 250 mg Given 09/02/2023 8:48 AM CDT 250 mg spironolactone (ALDACTONE) tablet 100 mg 100 mg, oral, Daily, First dose on Brenda 09/02/23 at 1615 Given 09/03/2023 8:10 AM CDT 100 mg Given 09/02/2023 5:50 PM CDT 100 mg tacrolimus immediate-release capsule 0.5 mg 0.5 mg, oral, Every other day, First dose (after last modification) on Wed08/24/23 at 0900, Avoid grapefruit juice, Indications: Prevention of Liver Transplant RejectionIndications:Prevention of Liver Transplant Rejection Given 08/26/2023 8:39 AM CDT 0.5 mg Given 08/24/2023 8:53 AM CDT 0.5 mg tacrolimus immediate-release capsule 0.5 mg 0.5 mg, oral, Daily, First dose (after last modification) on Wed08/27/23 at 0900, Avoid grapefruit juice, Indications: Prevention of Liver Transplant RejectionIndications:Prevention of Liver Transplant Rejection Given 09/03/2023 8:11 AM CDT 0.5 mg Given 09/02/2023 8:49 AM CDT 0.5 mg Given 09/01/2023 8:43 AM CDT 0.5 mg ursodioL (ACTIGALL) capsule 600 mg 600 mg, oral, Daily with dinner, First dose on Wed08/23/23 at 1800 Given 09/02/2023 5:50 PM CDT 600 mg Given 09/01/2023 5:40 PM CDT 600 mg Given 08/31/2023 5:22 PM CDT 600 mg valGANciclovir (VALCYTE) tablet 900 mg 900 mg, oral, 2 times daily, First dose on Wed08/24/23 at 2100, Do not crush, chew, cut, dissolve, open or otherwise manipulate tablet/capsule., Indications: Blood Stream/Endovascular InfectionIndications:Blood Stream/Endovascular Infection Given 09/03/2023 8:09 AM CDT 900 mg Given 09/02/2023 9:09 PM CDT 900 mg Given 09/02/2023 8:49 AM CDT 900 mg vancomycin 1,250 mg/262.5 mL in sodium chloride 0.9% (premix) 1,250 mg 1,250 mg, intravenous, Administer over 60 Minutes, Every 12 hours, First dose (after last modification) on Wed08/23/23 at 1915, Indications: Blood Stream/Endovascular InfectionIndications:Blood Stream/Endovascular Infection New Bag 08/24/2023 9:53 PM CDT 1,250 mg New Bag 08/24/2023 7:31 AM CDT 1,250 mg New Bag 08/23/2023 8:13 PM CDT 1,250 mg documented in this encounter Discontinued Medications Medication Sig Discontinue Reason Start Date End Da te tacrolimus (PROGRAF) 0.5 mg immediate-release capsuleIndications:Pre vention of Liver Transplant Rejection Take 1 capsule (0.5 mg total) by mouth every other day Reorder 07/28/2023 09/03/2023 acetaminophen (TYLENOL) 500 mg tablet Take 2 tablets (1,000 mg total) by mouth every 6 (six) hours as needed for pain Stop Taking at Discharge 08/28/2022 09/03/2023 traZODone (DESYREL) 50 mg tablet Take 1 tablet (50 mg total) by mouth nightly Stop Taking at Discharge 12/03/2022 09/03/2023 maribavir (LIVTENCITY) 200 mg tablet Take 2 tablets (400 mg total) by mouth 2 (two) times a day Stop Taking at Discharge 06/04/2023 09/03/2023 maribavir (LIVTENCITY) 200 mg tablet Take 2 tablets (400 mg total) by mouth 2 (two) times a day Stop Taking at Discharge 06/04/2023 09/03/2023 ciprofloxacin (CIPRO) 750 mg tablet Take 1 tablet (750 mg total) by mouth 2 (two) times a day for 3 days Reorder 09/03/2023 09/03/2023 documented as of this encounter Active and Recently Administered Medications Times are shown in CDT. 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 Do not swallow. 0846 (Given - Provider: Sidra Zaidi, YIFAN)1039 (DEC Hold - Provider: Automatic Transfer Provider - Reason: Patient not available)1650 (DEC Unhold - Provider: Automatic Transfer Provider) 0803 (Given - Provider: Sidra Zaidi, YIFAN) 0912 (Given - Provider: Guicho Espinosa, YIFAN) cefTRIAXone (ROCEPHIN) 2,000 mg/20 mL in sterile water (premix) 2,000 mg 2,000 mg, intravenous, at 1,200 mL/hr, Administer over 1 Minutes, Every 24 hours scheduled, First dose (after last reorder) on Wed09/01/23 at 1945, Indications: Blood Stream/Endovascular Infection 2020 (Given - Provider: Luisa Goldberg RN) 1954 (Given - Provider: Gretchen Hou RN) enoxaparin (LOVENOX) syringe 40 mg 40 mg, subcutaneous, Daily (for enoxaparin), First dose on Wed08/23/23 at 2100, Indications: Deep Vein Thrombosis Prevention 1039 (DEC Hold - Provider: Automatic Transfer Provider - Reason: Patient not available)165 (DEC Unhold - Provider: Automatic Transfer Provider)2028 (Not Given - Provider: Luisa Goldberg RN - Reason: Patient/family refused) 2109 (Not Given - Provider: Gretchen Hou RN - Reason: Patient/family refused) foscarnet (FOSCAVIR) 24 mg/mL injection 6,000 mg 6,000 mg, intravenous, Administer over 2 Hours, Every 12 hours scheduled, First dose on Wed09/03/23 at 1200, Central line only, Indications: Blood Stream/Endovascular Infection 1149 (New Bag - Provider: Linda Acosta RN)1405 (Stopped - Provider: Linda Acosta, SHAILESH) foscarnet (FOSCAVIR) 3,900 mg in sodium chloride 0.9% 325 mL (12 mg/mL) IVPB (CANCELED) 3,900 mg (rounded from 3,840 mg = 60 mg/kg ? 64 kg), intravenous, Administer over 2 Hours, Every 8 hours scheduled, First dose on Wed08/24/23 at 1900, Peripheral line only, Indications: Blood Stream/Endovascular Infection 0223 (New Bag - Provider: Bonita Rahman RN)0425 (Stopped - Provider: Bonita Rahman RN)1039 (DEC Hold - Provider: Automatic Transfer Provider - Reason: Patient not available)1100 (Not Given - Provider: Karli Crum RN - Reason: Patient not available)1650 (DEC Unhold - Provider: Automatic Transfer Provider)1940 (New Bag - Provider: Luisa Goldberg RN)215 (Stopped - Provider: Luisa Goldberg RN) 0317 (New Bag - Provider: Luisa Goldberg RN)0522 (Stopped - Provider: Luisa Goldberg RN)1118 (New Bag - Provider: Crystal Cunha, SHAILESH)1323 (Stopped - Provider: Crystal Cunha RN)1955 (New Bag - Provider: Gretchen Hou RN)2200 (Stopped - Provider: Gretchen Hou, RN) 0303 (New Bag - Provider: Gretchen Hou, SHAILESH)0505 (Stopped - Provider: Gretchen Hou RN) furosemide (LASIX) 10 mg/mL injection 60 mg (CANCELED) 60 mg, intravenous, 2 times daily (for diuretics), First dose on Wed08/30/23 at 1800, For IV push: administer doses < 160 mg at a rate of 20 -40 mg/min. Doses >/= 160 mg should be administered no faster than 4 mg/min. Room temperature only 0843 (Given - Provider: Karli Crum RN)1039 (DEC Hold - Provider: Automatic Transfer Provider - Reason: Patient not available)1600 (Not Given - Provider: Karli Crum RN - Reason: Other - Comment: dose auto hold)1650 (DEC Unhold - Provider: Automatic Transfer Provider) 0848 (Given - Provider: Crystal Cunha RN) furosemide (LASIX) tablet 40 mg 40 mg, oral, Daily, First dose on Wed09/02/23 at 1615 1750 (Given - Provider: Crystal Cunha, SHAILESH) 0810 (Given - Provider: Linda Acosta, SHAILESH) magnesium oxide (MAG-OX) tablet 400 mg 400 mg, oral, 2 times daily, First dose on Wed08/27/23 at 1245, 1 tablet = Magnesium oxide 400 mg = 241.3 mg elemental magnesium, Indications: hypomagnesemia 0843 (Given - Provider: Karli Crum RN)1039 (MAR Hold - Provider: Automatic Transfer Provider - Reason: Patient not available)1650 (DEC Unhold - Provider: Automatic Transfer Provider)2020 (Given - Provider: Luisa Goldberg, SHAILESH) 0849 (Given - Provider: Crystal Cunha RN)2108 (Given - Provider: Gretchen Hou RN) 0811 (Given - Provider: Linda Acosta, SHAILESH) metroNIDAZOLE (FLAGYL) tablet 500 mg 500 mg, oral, 3 times daily, First dose on Wed08/26/23 at 1600, Indications: Blood Stream/Endovascular Infection 0843 (Given - Provider: Karli Crum RN)1039 (DEC Hold - Provider: Automatic Transfer Provider - Reason: Patient not available)1600 (Not Given - Provider: Karli Crum RN - Reason: Other - Comment: hold auto hold)1650 (MAR Unhold - Provider: Automatic Transfer Provider)2025 (Given - Provider: Luisa Goldberg, RN) 0848 (Given - Provider: Crystal Cunha, SHAILESH)1543 (Given - Provider: Crystal Cunha RN)2109 (Given - Provider: Gretchen Hou RN) 0810 (Given - Provider: Linda Acosta RN) polyethylene glycol (GoLYTELY) solution 2,000 mL (COMPLETED) 2,000 mL, oral, 2 times daily, First dose on Wed08/31/23 at 1700, For 2 doses, Administer 2 liters (half of jug) at 17:00 the evening before the procedure and 2 liters (half of jug) at 4:00 the morning of the procedure. Starting at 17:00 have patient rapidly drink 8 ounces of solution every 10 minutes until half of jug (2 liters) is empty. Do not sip. If patient becomes nauseated, decrease frequency of 8 ounces of solution to every 20 minutes. Solution should be completed within 2 hours. The morning of the procedure 04:00 have patient rapidly drink 8 ounces every 10 minutes until remaining 2 liters of solution are empty. Using the container provided, add lukewarm water (may use tap water) up to the 4 L water warren; shake vigorously several times to ensure dissolution of the powder., Indications: Bowel Evacuation 0001 (Given - Provider: Bonita Rahman RN - Comment: GI note states to start at 0001) potassium chloride ER (KLOR-CON) extended release tablet 20 mEq 20 mEq, oral, Daily, First dose on Wed08/29/23 at 0900, Tablets should not be crushed, chewed, dissolved, or otherwise manipulated. Capsules may be opened and sprinkled on a spoonful of applesauce or pudding, but the contents of the capsule should not be crushed or chewed. 0843 (Given - Provider: Karli Crum RN)1039 (DEC Hold - Provider: Automatic Transfer Provider - Reason: Patient not available)1650 (DEC Unhold - Provider: Automatic Transfer Provider) 0848 (Given - Provider: Crystal Cunha RN) 0809 (Given - Provider: Linda Acosta RN) sodium chloride 0.9% bolus 500 mL (CANCELED) 500 mL, intravenous, at 250 mL/hr, Administer over 2 Hours, Every 8 hours scheduled, First dose on Wed08/24/23 at 1900, Administer NS concommitantly with all subsequent doses of foscarnet IV infusion after the first dose., Indications: concurrent hydration with foscarnet 0223 (New Bag - Provider: Bonita Rahman RN)0425 (Stopped - Provider: Bonita Rahman RN)1039 (DEC Hold - Provider: Automatic Transfer Provider - Reason: Patient not available)1100 (Not Given - Provider: Karli Crum RN - Reason: Patient not available)1650 (DEC Unhold - Provider: Automatic Transfer Provider)1940 (New Bag - Provider: Luisa Goldberg RN)2152 (Stopped - Provider: Luisa Goldberg RN) 0317 (New Bag - Provider: Luisa Goldberg RN)0522 (Stopped - Provider: Luisa Goldberg RN)1118 (New Bag - Provider: Crystal Cunha RN)1323 (Stopped - Provider: Crystal Cunha RN)1954 (New Bag - Provider: Gretchen Hou RN)2200 (Stopped - Provider: Gretchen Hou RN) 0303 (New Bag - Provider: Gretchen Hou RN)0505 (Stopped - Provider: Gretchen Hou RN) sodium chloride 0.9% bolus 500 mL 500 mL, intravenous, at 250 mL/hr, Administer over 2 Hours, Every 12 hours scheduled, First dose on Wed09/03/23 at 1100, Administer NS concommitantly with all subsequent doses of foscarnet IV infusion after the first dose., Indications: concurrent hydration with foscarnet 1053 (Not Given - Provider: Linda Acosta RN - Reason: Order Discontinued)1149 (New Bag - Provider: Linda Acosta RN)1406 (Stopped - Provider: Linda Acosta RN) sodium chloride 0.9% flush 0.5-20 mL 0.5-20 mL, intra-catheter, Every 8 hours scheduled, First dose on Wed08/23/23 at 1745, Flush volume based on line type and size. 0211 (Not Given - Provider: Bonita Rahman RN - Reason: IV Infusing)0600 (Due)1039 (MAR Hold - Provider: Automatic Transfer Provider - Reason: Patient not available)1400 (Not Given - Provider: Karli Crum RN - Reason: Patient not available)1650 (MAR Unhold - Provider: Automatic Transfer Provider)2015 (Lab Draw - Provider: Luisa Goldberg RN) 043 (Lab Draw - Provider: Luisa Goldberg RN)154 (Not Given - Provider: Crystal Cunha RN - Reason: IV Infusing)2200 (Not Given - Provider: Gretchen Hou RN - Reason: Other) 0623 (Not Given - Provider: Gretchen Hou RN - Reason: Other)1400 (Due) sodium chloride 0.9% flush 0.5-20 mL 0.5-20 mL, intra-catheter, Every 8 hours scheduled, First dose on Wed09/03/23 at 0830, Pre-Procedure (GI), Flush volume based on line type and size. 0805 (Given - Provider: Linda Acosta RN)1400 (Due) sodium chloride 0.9% flush 0.5-20 mL 0.5-20 mL, intra-catheter, Every 8 hours scheduled, First dose on Wed08/31/23 at 2200, Flush volume based on line type and size. 0211 (Not Given - Provider: Bonita Rahman RN - Reason: IV Infusing)0600 (Due)1403 (Not Given - Provider: Karli Crum RN - Reason: Patient not available)2015 (Lab Draw - Provider: Luisa Goldberg RN) 0434 (Lab Draw - Provider: Luisa Goldberg, SHAILESH)1540 (Not Given - Provider: Crystal Cunha RN - Reason: IV Infusing)220 (Not Given - Provider: Gretchen Hou RN - Reason: Other) 0623 (Not Given - Provider: Gretchen Hou RN - Reason: Other)1400 (Due) sodium chloride 0.9% flush 0.5-20 mL 0.5-20 mL, intra-catheter, Every 8 hours scheduled, First dose on Wed08/31/23 at 2200, Flush volume based on line type and size. 0211 (Not Given - Provider: Bonita Rahman RN - Reason: IV Infusing)0600 (Due)1403 (Not Given - Provider: Karli Crum RN - Reason: Patient not available)2017 (Lab Draw - Provider: Luisa Goldberg RN) 0434 (Lab Draw - Provider: Luisa Goldberg RN)1540 (Not Given - Provider: Crystal Cunha RN - Reason: IV Infusing)2201 (Given - Provider: Gretchen Hou RN) 0623 (Given - Provider: Gretchen Hou RN)1400 (Due) sodium chloride 0.9% flush 5-10 mL 5-10 mL, intra-catheter, Every 12 hours scheduled, First dose on Wed08/31/23 at 2100, Flush volume based on line type, size, and protocol. 0844 (Given - Provider: Karli Crum RN)1039 (DEC Hold - Provider: Automatic Transfer Provider - Reason: Patient not available)1650 (MAR Unhold - Provider: Automatic Transfer Provider)2028 (Lab Draw - Provider: Luisa Goldberg RN) 0850 (Given - Provider: Crystal Cunha RN)2110 (Given - Provider: Gretchen Hou RN) 0806 (Given - Provider: Linda Acosta RN) sodium phosphate - potassium phosphate (K-PHOS NEUTRAL) tablet 250 mg 250 mg, oral, 2 times daily with meals (bkfst, dinner), First dose on Wed08/28/23 at 0930, Each tablet contains elemental phosphorus 250 mg (8 mmol), potassium 45 mg (1.1 mEq), and sodium 298 mg (13 mEq). 0843 (Given - Provider: Karli Crum RN)1039 (MAR Hold - Provider: Automatic Transfer Provider - Reason: Patient not available)1650 (MAR Unhold - Provider: Automatic Transfer Provider)1741 (Given - Provider: Karli Crum, SHAILESH) 0848 (Given - Provider: Crystal Cunha RN)1750 (Given - Provider: Crystal Cunha RN) 0811 (Given - Provider: Linda Acosta, SHAILESH) spironolactone (ALDACTONE) tablet 100 mg 100 mg, oral, Daily, First dose on Wed09/02/23 at 1615 1750 (Given - Provider: Crystal Cunha RN) 0810 (Given - Provider: Linda Acosta, SHAILESH) tacrolimus immediate-release capsule 0.5 mg 0.5 mg, oral, Daily, First dose (after last modification) on Wed08/27/23 at 0900, Avoid grapefruit juice, Indications: Prevention of Liver Transplant Rejection 0843 (Given - Provider: Karli Crum RN)1039 (DEC Hold - Provider: Automatic Transfer Provider - Reason: Patient not available)165 (DEC Unhold - Provider: Automatic Transfer Provider) 0849 (Given - Provider: Crystal Cunha RN) 0811 (Given - Provider: Linda Acosta, SHAILESH) ursodioL (ACTIGALL) capsule 600 mg 600 mg, oral, Daily with dinner, First dose on Wed08/23/23 at 1800 1039 (DEC Hold - Provider: Automatic Transfer Provider - Reason: Patient not available)1650 (DEC Unhold - Provider: Automatic Transfer Provider)1740 (Given - Provider: Karli Crum RN) 1750 (Given - Provider: Crystal Cunha, SHAILESH) valGANciclovir (VALCYTE) tablet 900 mg 900 mg, oral, 2 times daily, First dose on Wed08/24/23 at 2100, Do not crush, chew, cut, dissolve, open or otherwise manipulate tablet/capsule., Indications: Blood Stream/Endovascular Infection 0843 (Given - Provider: Karli Crum RN)1039 (DEC Hold - Provider: Automatic Transfer Provider - Reason: Patient not available)1650 (DEC Unhold - Provider: Automatic Transfer Provider)2020 (Given - Provider: Luisa Lydia Goldberg, RN) 0849 (Given - Provider: Crystal Cunha, RN)2109 (Given - Provider: Gretchen Hou, SHAILESH) 0809 (Given - Provider: Linda Acosta, SHAILESH) Continuous Medication Order 09/01/2023 09/02/2023 09/03/2023 sodium chloride 0.9% infusion () 30 mL/hr, intravenous, Continuous, Starting on Wed09/01/23 at 1130, For 6 hours, Pre-Procedure (GI) 1100 (New Bag - Provider: Pauline Roberts, SHAILESH)1741 (Stopped - Provider: Karli Crum, SHAILESH) sodium chloride 0.9% infusion (CANCELED) 50 mL/hr, intravenous, Continuous, Starting on Wed09/01/23 at 1700, Phase I 1700 (Not Given - Provider: Karli Crum RN - Reason: Other - Comment: duplicate)1756 (New Bag - Provider: Karli Crum, SHAILESH)1759 (Stopped - Provider: Karli Crum, SHAILESH) PRN Medication Order 09/01/2023 09/02/2023 09/03/2023 acetaminophen (TYLENOL) tablet 650 mg 650 mg, oral, Every 6 hours PRN, fever, Starting on Wed08/23/23 at 1710, Indications: Fever 1039 ([facility] Hold - Provider: Automatic Transfer Provider - Reason: Patient not available)1650 ([facility] Unhold - Provider: Automatic Transfer Provider) Carrier Fluids for Secondary Infusion - 0.9% Sodium Chloride 30 mL, intravenous, As needed, For priming tubing and/or flushing, Starting on Wed08/23/23 at 1708, 0-250 ml/hr to flush line after IV infusions when no maintenance IV ordered. Infuse 30mL at the same rate as the secondary infusion. Run as primary IV, not intended for KVO. 1039 ([facility] Hold - Provider: Automatic Transfer Provider - Reason: Patient not available)1650 ([facility] Unhold - Provider: Automatic Transfer Provider) Carrier Fluids for Secondary Infusion - 0.9% Sodium Chloride 30 mL, intravenous, As needed, For priming tubing and/or flushing, Starting on Wed08/31/23 at 1802, 0-250 ml/hr to flush line after IV infusions when no maintenance IV ordered. Infuse 30mL at the same rate as the secondary infusion. Run as primary IV, not intended for KVO. Carrier Fluids for Secondary Infusion - 0.9% Sodium Chloride 30 mL, intravenous, As needed, For priming tubing and/or flushing, Starting on Wed08/31/23 at 1810, 0-250 ml/hr to flush line after IV infusions when no maintenance IV ordered. Infuse 30mL at the same rate as the secondary infusion. Run as primary IV, not intended for KVO. heparin 10 unit/mL flush 20-50 Units 20-50 Units (2-5 mL), intra-catheter, As needed, line care, with each use, Starting on Wed08/23/23 at 1705, Do not use with Groshong catheter. Do not use with peripheral IV Flush volume based on line type, size, and protocol., Indications: Maintain Patency of Indwelling Vascular Catheter 1039 ([facility] Hold - Provider: Automatic Transfer Provider - Reason: Patient not available)165 ([facility] Unhold - Provider: Automatic Transfer Provider)2026 (Given - Provider: Luisa Goldberg RN) heparin 100 unit/mL injection 500 Units 500 Units (5 mL), intra-catheter, Once as needed, line care, Starting on Wed08/23/23 at 1705, For 1 dose, For port decannulation., Indications: Maintain Patency of Indwelling Vascular Catheter 1039 ([facility] Hold - Provider: Automatic Transfer Provider - Reason: Patient not available)165 ([facility] Unhold - Provider: Automatic Transfer Provider) magnesium sulfate 4 g/100 mL in water (premix) 4 g 4 g, intravenous, Administer over 90 Minutes, Every 4 hours PRN, magnesium replacement, Starting on Wed08/23/23 at 1709, For magnesium level of 1.2-1.5 mg/dL, Indications: hypomagnesemia 1039 ([facility] Hold - Provider: Automatic Transfer Provider - Reason: Patient not available)165 ([facility] Unhold - Provider: Automatic Transfer Provider) 0622 (New Bag - Provider: Gretchen Hou, SHAILESH)0802 (Stopped - Provider: Linda Acosta RN) magnesium sulfate 6 g in sodium chloride 0.9% 250 mL IVPB 6 g, intravenous, at 131 mL/hr, Administer over 120 Minutes, Every 4 hours PRN, magnesium replacement, Starting on Wed08/23/23 at 1709, For magnesium level less than 1.2 mg/dL and call/notify provider., Indications: hypomagnesemia 1039 ([facility] Hold - Provider: Automatic Transfer Provider - Reason: Patient not available)1650 ([facility] Unhold - Provider: Automatic Transfer Provider) ondansetron (ZOFRAN) injection 8 mg(Linked Group 1) 8 mg, intravenous, Administer over 2 Minutes, Every 8 hours PRN, nausea, vomiting, if not tolerating PO, Starting on Wed08/23/23 at 1710 1039 ([facility] Hold - Provider: Automatic Transfer Provider - Reason: Patient not available)1650 ([facility] Unhold - Provider: Automatic Transfer Provider) ondansetron (ZOFRAN) tablet 8 mg(Linked Group 1) 8 mg, oral, Every 8 hours PRN, nausea, vomiting, Starting on Wed08/23/23 at 1710, May administer IV if not tolerating oral. 1039 ([facility] Hold - Provider: Automatic Transfer Provider - Reason: Patient not available)1650 ([facility] Unhold - Provider: Automatic Transfer Provider) potassium chloride ER (KLOR-CON) extended release tablet 40 mEq 40 mEq, oral, Every 2 hours PRN, potassium replacement, Starting on Wed08/23/23 at 1709, HOLD dose and contact prescriber/provider if any [...] not be crushed or chewed., Indications: hypokalemia 1039 ([facility] Hold - Provider: Automatic Transfer Provider - Reason: Patient not available)1650 ([facility] Unhold - Provider: Automatic Transfer Provider) sodium chloride 0.9% flush 0.5-20 mL 0.5-20 mL, intra-catheter, As needed, line care, Starting on Wed08/23/23 at 1708, Flush volume based on line type and size. Flush before and after each use. 1039 ([facility] Hold - Provider: Automatic Transfer Provider - Reason: Patient not available)1650 ([facility] Unhold - Provider: Automatic Transfer Provider) sodium chloride 0.9% flush 0.5-20 mL 0.5-20 mL, intra-catheter, As needed, line care, Starting on Wed09/03/23 at 0751, Pre-Procedure (GI), Flush volume based on line type and size. Flush before and after each use. sodium chloride 0.9% flush 0.5-20 mL 0.5-20 mL, intra-catheter, As needed, line care, Starting on Wed08/31/23 at 1802, Flush volume based on line type and size. Flush before and after each use. sodium chloride 0.9% flush 0.5-20 mL 0.5-20 mL, intra-catheter, As needed, line care, Starting on Wed08/31/23 at 1810, Flush volume based on line type and size. Flush before and after each use. sodium chloride 0.9% flush 10 mL 10 mL, intra-catheter, Once as needed, line care, Starting on Wed08/23/23 at 1705, For 1 dose, Prior to heparin to decannulate port. 1039 ([facility] Hold - Provider: Automatic Transfer Provider - Reason: Patient not available)1650 ([facility] Unhold - Provider: Automatic Transfer Provider) sodium chloride 0.9% flush 5-20 mL 5-20 mL, intra-catheter, As needed, line care, with each use, Starting on Wed08/31/23 at 1510, Flush volume based on line type, size, and protocol. 1039 ([facility] Hold - Provider: Automatic Transfer Provider - Reason: Patient not available)1650 ([facility] Unhold - Provider: Automatic Transfer Provider) sodium chloride 0.9% infusion 30 mL/hr, intravenous, Continuous PRN, KVO for medication administrations, Starting on Wed08/23/23 at 1705 1055 (Due) 1916 (Due: Stopped) sodium phosphate - potassium phosphate (K-PHOS NEUTRAL) tablet 500 mg 500 mg, oral, Daily PRN, phosphorus level 1.5-1.9 mg/dL, Starting on Wed08/23/23 at 1709, Contact provider for phosphorus level less than 1.5 mg/dL. Each tablet contains elemental phosphorus 250 mg (8 mmol), potassium 45 mg (1.1 mEq), and sodium 298 mg (13 mEq)., Indications: hypophosphatemia 1039 ([facility] Hold - Provider: Automatic Transfer Provider - Reason: Patient not available)1650 (DEC Unhold - Provider: Automatic Transfer Provider) Linked Groups Order Group 1: ondansetron (ZOFRAN) tablet 8 mgJump to med 8 mg, oral, Every 8 hours PRN, nausea, vomiting, Starting on Wed08/23/23 at 1710, May administer IV if not tolerating oral. Or ondansetron (ZOFRAN) injection 8 mgJump to med 8 mg, intravenous, Administer over 2 Minutes, Every 8 hours PRN, nausea, vomiting, if not tolerating PO, Starting on Wed08/23/23 at 1710 documented in this encounter Orders Medications Ordered That John ht Not Have Been Administered Count Last Ordered Date First Ordered Date sodium chloride 0.9% bolus 500 mL 1 023 sodium chloride 0.9% flush 0.5-20 mL 7 12/202208/23/2023 sodium chloride 0.9% infusion 2 09/03/2023 08/27/2023 acetaminophen (TYLENOL) tablet 500 mg 1 11/2022 cefdinir (OMNICEF) capsule 300 mg 1 023 naloxone (NARCAN) 0.4 mg/mL injection 0.04-0.4 mg 1 09/01/2023 ondansetron (ZOFRAN) injection 4 mg 1 09/01 Carrier Fluids for Secondary Infusion - 0.9% Sodium Chloride 2 08/31/2023 lidocaine PF (XYLOCAINE) 10 mg/mL (1 %) preservative free injection 10-20 mg 1 08/31/2023 sodium chloride 0.9% flush 5-20 mL 1 2022 furosemide (LASIX) 10 mg/mL injection 80 mg 1 08/28/2023 potassium chloride ER (KLOR- CON) extended release tablet 40 mEq 1 08/28/2023 polyethylene glycol (GoLYTEL Y) solution 2,000 mL 1 08/26/2023 vancomycin 1500 mg/515 mL in sodium chloride 0.9% (premix) 1,500 mg 1 08/25/2023 perflutren protein-a (OPTISO N) 3 mL in sodium chloride 0.9% 8 mL syringe 1 08/24/2023 acetaminophen (TYLENOL) tablet 650 mg 1 enoxaparin (LOVENOX) syringe 40 mg 1 2022 heparin 10 unit/mL flush 50 Units 1 023 heparin 100 unit/mL injection 500 Units 1 1 magnesium sulfate 6 g in sod ium chloride 0.9% 250 mL IVPB 1 08/23/2023 ondansetron (ZOFRAN) injection 8 mg 1 08/23 ondansetron (ZOFRAN) tablet 8 mg 1 08/23/20 sodium chloride 0.9% flush 10 mL 1 08/23/20 sodium phosphate - potassium phosphate (K-PHOS NEUTRAL) tablet 500 mg 1 08/23/2023 tacrolimus immediate-release capsule 0.5 mg 1 08/23/2023 vancomycin 1,000 mg/200 mL i n dextrose 5% (premix) 1,000 mg 1 08/23/2023 Lab Orders Without Results Count Last Ordered D ate First Ordered Date IGG 1 08/31/2023 FOLATE 1 08/23/2023 TSH REFLEX TO FREE T4 1 08/23/2023 VITAMIN B12 1 08/23/2023 Diet Count Last Ordered Date First Orde red Date ADULT DISCHARGE DIET 1 09/03/2023 Nursing Count Last Ordered Date First Orde red Date DISCHARGE CALL PROVIDER 8 09/03/2023 NOTIFY PROVIDER (SPECIFY) 1 09/01/2023 VITAL SIGNS 2 09/01/2023 08/31/2023 MEASURE HEIGHT AND LENGTH 2 08/31/2023 WEIGH PATIENT 2 08/31/2023 08/23/2023 VERIFY INFORMED CONSENT 1 08/27/2023 ORTHOSTATIC BLOOD PRESSURE 1 08/23/2023 Consult Count Last Ordered Date First Orde red Date CONSULT TO CLINICAL NUTRITION 1 09/02/2023 IP CONSULT TO VASCULAR ACCESS TEAM 1 2022 CONSULT TO GASTROENTEROLOGY - HEPATOLOGY 1 08/24/2023 CONSULT TO TRANSPLANT INFECTIOUS DISEASE 1 08/24/2023 IP CONSULT [facility] 1 023 Isolation Count Last Ordered Date First Orde red Date INITIATE DROPLET ISOLATION 1 08/25/2023 Admission Count Last Ordered Date First Orde red Date ADMIT TO INPATIENT 1 08/23/2023 Discharge Count Last Ordered Date First Orde red Date DISCHARGE PATIENT 1 09/03/2023 Case Request Count Last Ordered Date First Orde red Date CASE REQUEST GI 2 08/31/2023 08/27/2023 ADT Patient Update Count Last Ordered Date Firs t Ordered Date PROVIDER TREATMENT TEAM 1 08/23/2023 documented in this encounter Additional Health Concerns Infection Onset Date Last Indicated Resolved Time COVID: Suspected 08/25/2023 08/25/2023 08/25/2023 7:15 PM CDT Rhino/Enterovirus Comment:08/31/2023 IP Review: symptoms improved per current RN, afebrile off of antipyretics. OK to come off rhino/enterovirus precautions. Adriane Herrera RN 08/25/2023 08/25/20232022 2:08 PM CDT documented as of this encounter Care Teams Medical Technician Assistant Relationship Specialty Start Date End Date Beka Nick MD [address] [place] [address] PCP - General Family Practice 05/31/23 04/25/24 Amber Montesinos, SHAILESH Behavioral Assistant Transplant 11/17/19 Jil Duncan MD Consulting Physician Infectious Diseases 01/10/20 Anita Gillespie MD Medical Oncologist/[facility]at [facility] Medical Oncology 10/07/20 Tabitha Hurley MD [address] [place], [place] [id number] Consulting Physician Rheumatology 10/22/21 Massiel Gastelum MD [address] [place] [address] Consulting Physician Otolaryngology 08/27/22 documented as of this encounter
--- OUTSIDE RECORDS SUMMARY | 2024-10-28 06:08 | XMS_ITS | Encounter Summary ---
Author Organization [facility] Healthcare Address [address] [place] [address] Care Team Providers Care Compound Specialist Name Role Phone Amber Montesinos RN Unavailable [phone] Jil Duncan MD Unavailable [phone] Anita Gillespie MD Unavailable [phone] Tabitha Hurley MD Unavailable [phone] Massiel Gastelum MD Unavailable [phone] Beka Nick MD Primary Care Provider [phone] Reason for Visit * Auth/Cert Specialty Diagnoses / Procedures Referred By Contac t Referred To Contact Diagnoses Multiple myeloma (HCC) Procedures na Referral ID Status Reason Start Date Expiration Date Visits Re quested Visits Authorized [id number] 1 1 Encounter Details Date Type Department Care Team (Late st Contact Info) Description 09/01/2023 3:37 PM CDT Anesthesia Event [facility] [address] [place] [address] Philip Evans MD PhD [address] [place] [address] Anesthesia Record Procedure Summary Procedure Name Responsible Anesthesiologist Anesthesia Start Time Anesthesia Stop Time COLON BIOPSY (Colon) Philip Evans MD PhD 09/01/23 1537 09/01/23 1624 Events Date Time Event Comment 09/01/2023 1537 An Start 1538 In Room 1539 An Start Data 1539 Start Supplemental O2 1540 Patient Positioned Laterally 1540 An Induction The patient was reevaluated immediately before moderate or deep sedation use and before anesthesia induction. 1540 Anesthesia Ready 1617 Proc Fin 1620 an stop data 1621 Out of Room 1624 Handoff to RN I completed my handoff [...] Patient disposition at the time of handoff: No value filed. 1624 An Stop Meds Name Total propofol 260 mg propofol 350.3 mg NS 0.9% 100 mL * Agents Name O2% N2O O2 * Blood No blood administrations on file. Lines, Drains, and Airways Type Details Placement Removal PICC Double Lumen Placement Date: 08/31/23; Placement Time: 1621; Cath Out Checklist Completed: Yes; Size: 4; Length: 39 cm; Orientation: Right; Location: Basilic; Site Prep: Chlorhexidine; Initial Extremity Circumference: 25 cm; Initial Exposed Catheter: 1 cm; Inserted By: Lily Duran RN; Insertion Attempts: 1; Patient Tolerance: Tolerated well; Placement Verification: Blood return, ECG, Ultrasound; Removal Date: 10/03/23; Removal Time: 1416; Removal Reason: Removal date unknown/not present on admission 08/31/23 1621 by Sundeep Real RN 10/03/23 1416 by Abdirahman Laureano RN documented in this encounter Social History Tobacco Use Types Packs/Day Years Used Date Smoking Tobacco: Never Smokeless Tobacco: Current Chew Alcohol Use Standard Drinks/Week Comments Yes 0 (1 standard drink = 0.6 oz pur e alcohol) occassional AUDIT-C Answer Date Recorded Q1: How often [...] on file 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 Gender Identity Not on file Sexual Orientation Straight 08/22/2021 9: 23 AM CDT documented as of this encounter OR Notes * Anesthesia Postprocedure Evaluation - Philip Evans MD PhD - 09/01/2023 4:39 PM CDT Patient: Beka Nichols Procedure Summary Date: 09/01/23 Room / Location: [facility] / [facility] Anesthesia Start: 1537 Anesthesia Stop: 1624 Procedure: COLON BIOPSY (Colon) Diagnosis: Colitis (Colitis [K52.9]) Providers: Delia Ashby MD Responsible Provider: Philip Evans MD PhD Anesthesia Type: MAC ASA Status: 4 Anesthesia Type: MAC Last vitals BP 99/56 Pulse 80 Temp 36.2 ??C (97.2 ??F) (Temporal) Resp 16 SpO2 93% Anesthesia Post Evaluation Patient location during evaluation: PACU Patient participation: complete - patient participated Level of consciousness: fully awake Pain score: 0 Pain management: adequate Airway patency: adequate Cardiovascular status: acceptable Respiratory status: acceptable and room air Hydration status: acceptable Pt is: normothermic Nausea/Vomiting status: none No notable events documented. * Anesthesia Preprocedure Evaluation - Philip Evans MD PhD - 09/01/2023 2:09 PM CDT Images from the original note were not included. Anesthesia Evaluation Beka Nichols is a 28 y.o. 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 Last Dose Start Date End Date Provider acetaminophen (TYLENOL) 500 mg tablet -- 08/28/22 -- Robert Chan MD Take 2 tablets (1,000 mg total) by mouth every 6 (six) hours as needed for pain Patient not taking: Reported on 02/08/2023 budesonide (PULMICORT) 0.5 mg/2 mL nebulizer solution -- -- -- Provider, MD Dl maribavir (LIVTENCITY) 200 mg tablet -- 06/04/23 -- Lisandra Auguste NP Take 2 tablets (400 mg total) by mouth 2 (two) times a day Notes: Quick start Rx maribavir (LIVTENCITY) 200 mg tablet -- 06/04/23 12/01/23 Lisandra Auguste NP Take 2 tablets (400 mg total) by mouth 2 (two) times a day tacrolimus (PROGRAF) 0.5 mg immediate-release capsule -- 07/28/23 07/27/24 Theodore Gresham MD Take 1 capsule (0.5 mg total) by mouth every other day Notes: Txp: 03/03/1999 (Liver) D/C: ICD10: Z94.4 Center: [facility] ([place], [place]) traZODone (DESYREL) 50 mg tablet () -- 12/03/22 01/02/23 Nancy Butler NP Take 1 tablet (50 mg total) by mouth nightly ursodioL (ACTIGALL) 300 mg capsule -- 07/27/23 -- David Pool MD Take 2 capsules (600 mg total) by mouth daily with dinner Notes: PA/Scripts P: [phone] F: [phone] Ongoing Comment Juanita Martin RN 01/24/2022 8:57 AM 02/18/20NO INTERACTIONS FOR ADMISSION-WIN RN No interactilns 03/12/2020 Rosemarie RN No interactions noted. 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 CAITLYN RN Current Facility-Administered Medications: [DEC Hold] acetaminophen (TYLENOL) tablet 650 mg, 650 mg, oral, Q6H PRN [DEC Hold] budesonide (PULMICORT) 0.5 mg/2 mL nebulizer solution 0.5 mg, 0.5 mg, nebulization, Daily (RT), 0.5 mg at 09/01/23 0846 [Dec] Carrier Fluids for Secondary Infusion - 0.9% Sodium Chloride, 30 mL, intravenous, PRN, 30 mL at 08/28/23 1338 Carrier Fluids for Secondary Infusion - 0.9% Sodium Chloride, 30 mL, intravenous, PRN Carrier Fluids for Secondary Infusion - 0.9% Sodium Chloride, 30 mL, intravenous, PRN cefdinir (OMNICEF) capsule 300 mg, 300 mg, oral, BID dextrose 5% infusion, 75 mL/hr, intravenous, Continuous, Last Rate: 75 mL/hr at 08/31/23 2324, 75 mL/hr at 08/31/23 2324 [DEC Hold] enoxaparin (LOVENOX) syringe 40 mg, 40 mg, subcutaneous, Daily-2100 [Dec] foscarnet (FOSCAVIR) 3,900 mg in sodium chloride 0.9% 325 mL (12 mg/mL) IVPB, 60 mg/kg, intravenous, Q8H PIPPA, Stopped at 09/01/23 0425 [DEC Hold] furosemide (LASIX) 10 mg/mL injection 60 mg, 60 mg, intravenous, BID DIURETIC, 60 mg at 09/01/23 0843 [DEC Hold] heparin 10 unit/mL flush 20-50 Units, 2-5 mL, intra-catheter, PRN, 50 Units at 08/31/23 2102 [DEC Hold] heparin 100 unit/mL injection 500 Units, 5 mL, intra-catheter, Once PRN [DEC Hold] lidocaine PF (XYLOCAINE) 10 mg/mL (1 %) preservative free injection 10-20 mg, 1-2 mL, subcutaneous, Once [DEC Hold] magnesium oxide (MAG-OX) tablet 400 mg, 400 mg, oral, BID, 400 mg at 09/01/23 0843 [DEC Hold] magnesium sulfate 4 g/100 mL in water (premix) 4 g, 4 g, intravenous, Q4H PRN, Stopped at 08/27/23 0737 [DEC Hold] magnesium sulfate 6 g in sodium chloride 0.9% 250 mL IVPB, 6 g, intravenous, Q4H PRN [DEC Hold] metroNIDAZOLE (FLAGYL) tablet 500 mg, 500 mg, oral, TID, 500 mg at 09/01/23 0843 [DEC Hold] ondansetron (ZOFRAN) tablet 8 mg, 8 mg, oral, Q8H PRN OR [DEC Hold] ondansetron (ZOFRAN) injection 8 mg, 8 mg, intravenous, Q8H PRN perflutren protein-a (OPTISON) 3 mL in sodium chloride 0.9% 8 mL syringe, 1-8 mL, intravenous, Oncein imaging [DEC Hold] potassium chloride ER (KLOR-CON) extended release tablet 20 mEq, 20 mEq, oral, Daily, 20mEq at 09/01/23 0843 [DEC Hold] potassium chloride ER (KLOR-CON) extended release tablet 40 mEq, 40 mEq, oral, Q2H PRN, 40 mEq at 08/28/23 0500 [DEC Hold] sodium chloride 0.9% bolus 500 mL, 500 mL, intravenous, Q8H PIPPA, Stopped at 09/01/23 0425 [DEC Hold] sodium chloride 0.9% flush 0.5-20 mL, 0.5-20 mL, intra-catheter, Q8H PIPPA, 10 mL at 08/30/23 1351 [DEC Hold] sodium chloride 0.9% flush 0.5-20 mL, 0.5-20 mL, intra-catheter, PRN sodium chloride 0.9% flush 0.5-20 mL, 0.5-20 mL, intra-catheter, Q8H PIPPA sodium chloride 0.9% flush 0.5-20 mL, 0.5-20 mL, intra-catheter, PRN sodium chloride 0.9% flush 0.5-20 mL, 0.5-20 mL, intra-catheter, Q8H PIPPA sodium chloride 0.9% flush 0.5-20 mL, 0.5-20 mL, intra-catheter, PRN [DEC Hold] sodium chloride 0.9% flush 10 mL, 10 mL, intra-catheter, Once PRN [DEC Hold] sodium chloride 0.9% flush 5-10 mL, 5-10 mL, intra-catheter, Q12H PIPPA, 10 mL at [DEC Hold] sodium chloride 0.9% flush 5-20 mL, 5-20 mL, intra-catheter, PRN sodium chloride 0.9% infusion, 30 mL/hr, intravenous, Continuous PRN, Last Rate: 30 mL/hr at 08/28/23 1333, 30 mL/hr at 08/28/231332 sodium chloride 0.9% infusion, 30 mL/hr, intravenous, Continuous, Last Rate: 30 mL/hr at 09/01/23 1100, 30 mL/hr at 09/01/23 1100 [DEC Hold] sodium phosphate - potassium phosphate (K-PHOS NEUTRAL) tablet 250 mg, 250 mg, oral, BIDwith meals (bkfst, dinner), 250 mg at 09/01/23 0843 [DEC Hold] sodium phosphate - potassium phosphate (K-PHOS NEUTRAL) tablet 500 mg, 500 mg, oral, Daily PRN [DEC Hold] tacrolimus immediate-release capsule 0.5 mg, 0.5 mg, oral, Daily, 0.5 mg at 09/01/23 0843 [DEC Hold] ursodioL (ACTIGALL) capsule 600 mg, 600 mg, oral, Daily with dinner, 600 mg at 08/31/23 1722 [DEC Hold] valGANciclovir (VALCYTE) tablet 900 mg, 900 mg, oral, BID, 900 mg at 09/01/23 0843 Social History Tobacco Use Smoking Status Never Smokeless Tobacco Current Types: Chew Alcohol Use: Heavy Drinker (09/01/2023) AUDIT-C Frequency of Alcohol Consumption: Monthly or less Average Number of Drinks: 5 or 6 Frequency of Binge Drinking: Monthly Substance and Sexual Activity Drug Use Yes Types: Alcohol Family History Problem Relation Age of Onset Rectal cancer Mother Rectal cancer - (Added by TW Conv) No Known Problems Father Diabetes type II Sister Family history of type 2 diabetes mellitus - (Added by TW Conv) Anesthesia problems Other Vitals: 09/01/23 1230 09/01/23 1300 09/01/23 1330 BP: 108/62 108/67 109/66 Pulse: 71 79 76 Resp: 18 19 19 Temp: SpO2: 95% 93% 96% PT: 08/31/2023: 16.2 sec (H) INR: 08/31/2023: 1.42 (H) APTT: 08/30/2023: 33 sec Hgb A1C: No results found for requested labs within last 30 days. CBC RBC: 08/31/2023: 3.05 M/cumm (L) RDW: No results found for requested labs within last 30 days. MCHC: 08/31/2023: 36.1 g/dL (H) MCH: 08/31/2023: 37.7 pg (H) MCV: 08/31/2023: 104.6 fL (H) Hct: 08/31/2023: 31.9 % (L) Hgb: 08/31/2023: 11.5 g/dL (L) WBC: 08/31/2023: 9.2 K/cumm MPV: 08/31/2023: 12.0 fL Platelets: 08/31/2023: 238 K/cumm RDW CV: 08/31/2023: 20.7 % (H) RDW Sd: 08/31/2023: 79.5 fL (H) BMP Glucose: 08/31/2023: 107 mg/dL Calcium: 08/31/2023: 8.1 mg/dL (L) Sodium: 08/31/2023: 145 mmol/L Potassium: 08/31/2023: 3.8 mmol/L CO2: 08/31/2023: 26 mmol/L Chloride: 08/31/2023: 110 mmol/L BUN: 08/31/2023: 11 mg/dL Creatinine: 08/31/2023: 0.71 mg/dL (L) DOS Physical Exam Medical history, medications, and allergies reviewed. Attestation: With today's edits, I endorse the the findings of the H&P dated: 08/23/2023. Airway Exam: Mallampati: II Cervical ROM: FROM TM distance: normal Cardiovascular Exam: Rate: regular Rhythm: regular Pulmonary Exam: LCTA, bilat EENT Exam: trachea midline Dental Exam: Appears intact Anesthesia Plan ASA 4 My patient is approved for the Anesthesia Controlled Medication protocol when under care of a QA DEVELOPER Planned anesthesia: MAC Induction: Induction: intravenous. Postoperative Plan: No plan for postoperative opioid use. No postoperative mechanical ventilation intended. Patient's planned disposition post procedure is Floor. Informed Consent: Discussed plan with attending. Anesthesia plan and risks discussed with patient. Consent and Attending signature: I and/or my [...] Scheduled Procedures Name Priority Associated Diagnoses Date/Ti wi COLONOSCOPY Encounter for screening for colorectal cancer in high risk patient Family history of rectal cancer documented as of this encounter Visit Diagnoses Not on filedocumented in this encounter Administered Medications Inactive Administered Medications - up to 3 most recent administrations Medication Order MAR Action Action Date Dose Rate Site propofoL (DIPRIVAN) 10 mg/mL IV intravenous, Continuous PRN, Starting on Wed09/01/23 at 1540, Anesthesia Intra-op Rate/Dose Change 09/01/2023 3:58 PM CDT 150 mcg/kg/min 65.34 mL/hr Rate/Dose Change 09/01/2023 3:54 PM CDT 125 mcg/kg/min 54. 45 mL/hr Rate/Dose Change 09/01/2023 3:46 PM CDT 100 mcg/kg/min 43. 56 mL/hr propofoL (DIPRIVAN) 10 mg/mL IV intravenous, As needed, Starting on Wed09/01/23 at 1541, Anesthesia Intra-op Given 09/01/2023 4:10 PM CDT 30 mg Given 09/01/2023 4:01 PM CDT 30 mg Given 09/01/2023 3:56 PM CDT 30 mg sodium chloride 0.9% infusion intravenous, Continuous PRN, Starting on Wed09/01/23 at 1538, Anesthesia Intra-op New Bag 09/01/2023 3:38 PM CDT documented in this encounter Care Teams Compound Specialist Relationship Specialty Start Date End Date Beka Nick MD [address] [place] [address] PCP - General Family Practice 05/31/23 04/25/24 Amber Montesinos, SHAILESH Pump Erector Transplant 11/17/19 Jil Duncan MD Consulting Physician Infectious Diseases 01/10/20 Anita Gillespie MD Medical Oncologist/Wall Washer Medical Oncology 10/07/20 Tabitha Hurley MD [address] [place] [address] Consulting Physician Rheumatology 10/22/21 Massiel Gastelum MD [address] [place] [address] Consulting Physician Otolaryngology 08/27/22 documented as of this encounter
--- OUTSIDE RECORDS SUMMARY | 2024-10-28 06:09 | XMS_ITS | Encounter Summary ---
Author Organization [facility] Address [address] [place] [address] Phone Care Team Providers Care Education Nurse Name Role Phone Amber Montesinos RN Unavailable [phone] Jil Duncan MD Unavailable [phone] Anita Gillespie MD Unavailable [phone] Tabitha Hurley MD Unavailable [phone] Massiel Gastelum MD Unavailable [phone] Beka Nick MD Primary Care Provider [phone] Unknown, Notinfile Primary Care Provider Unavail able Guero Colunga DO Primary Care Provider [phone] Encounter Details Date Type Department Care Team (Latest Contact Info) Description 08/20/2023 Orders Only [facility] Scanning, Provider Social History Tobacco Use Types Packs/Day Years Used Date Smoking Tobacco: Never Smokeless Tobacco: Current Chew Alcohol Use Standard Drinks/Week Comments Yes 0 (1 standard drink = 0.6 oz pur e alcohol) occassional AUDIT-C Answer Date Recorded Q1: How often do you have a drink containing alc ohol? 2-4 times a month 08/28/2022 Q2: How many drinks containi ng alcohol do you have on a typical day when you are drinking? 1 or 2 08/28/2022 Q3: How often do you have si x or more drinks on one occasion? 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 Gender Identity Not on file Sexual Orientation Straight 08/22/2021 9: 23 AM CDT documented as of this encounter Plan of Treatment Scheduled Procedures Name Priority Associated Diagnoses Date/Ti me COLONOSCOPY Encounter for screening for colorectal cancer in high risk patient Family history of rectal cancer documented as of this encounter Procedures Procedure Name Priority Date/Time Associated Diagnosis Comments SCAN - LABS 08/20/2023 documented in this encounter Results * SCAN - LABS (08/20/2023) us Provider Scanning Final Result documented in this encounter Visit Diagnoses Not on filedocumented in this encounter Additional Health Concerns Infection Onset Date Last Indicated Resolved Time COVID: Suspected 08/25/2023 08/25/2023 08/25/2023 7:15 PM CDT Rhino/Enterovirus Comment:08/31/2023 IP Review: symptoms improved per current RN, afebrile off of antipyretics. OK to come off rhino/enterovirus precautions. Adriane Herrera RN 08/25/2023 08/25/20232022 2:08 PM CDT COVID: Suspected 10/03/2023 10/03/2023 10/03/2023 9:58 AM FUNERAL PRE NEED CONSULTANT Rhino/Enterovirus 10/03/2023 10/03/2023 10/17/2023 3:05 AM FUNERAL PRE NEED CONSULTANT COVID: Suspected 02/18/2024 02/18/2024 02/18/2024 7:27 AM CDT Rhino/Enterovirus 02/18/2024 02/19/2024 03/04/2024 3:05 AM CDT documented as of this encounter Care Teams Education Nurse Relationship Specialty Start Date End Date Beka Nick MD [address] [place] [address] PCP - General Family Practice 05/31/23 04/25/24 Unknown, Notinfile PCP - General 04/26/24 08/01/24 Guero Colunga DO [address] [place] [address] PCP - General Internal Medicine 08/02/24 Amber Montesinos, RN Biology Instructor Transplant 11/17/19 Jil Duncan MD Consulting Physician Infectious Diseases 01/10/20 Anita Gillespie MD Medical Oncologist/Sound Art Instructor Medical Oncology 10/07/20 Tabitha Hurley MD [address] [facility] [address] [place], [place] [id number] Consulting Physician Rheumatology 10/22/21 Massiel Gastelum MD [address] [place] [address] Consulting Physician Otolaryngology 08/27/22 documented as of this encounter
--- OUTSIDE RECORDS SUMMARY | 2024-10-28 06:09 | XMS_ITS | Encounter Summary ---
Author Organization [facility] Address [address] [place] [address] Phone Care Team Providers Care Bisque Cleaner Name Role Phone Amber Montesinos RN Unavailable [phone] Jil Duncan MD Unavailable [phone] Anita Gillespie MD Unavailable [phone] Tabitha Hurley MD Unavailable [phone] Massiel Gastelum MD Unavailable [phone] Beka Nick MD Primary Care Provider [phone] Encounter Details Date Type Department Care Team (Late st Contact Info) Description 08/23/2023 Orders Only [facility] Oncology [address] [facility] [address] [place] [address] [place] [address] Anita Gillespie MD [address] [facility] [address] [place] [address] 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) [...] on file 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 Gender Identity Not on file Sexual Orientation Straight 08/22/2021 9: 23 AM CDT documented as of this encounter Plan of Treatment Scheduled Procedures Name Priority Associated Diagnoses Date/Ti me COLONOSCOPY Encounter for screening for colorectal cancer in high risk patient Family history of rectal cancer documented as of this encounter Visit Diagnoses Diagnosis 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 documented in this encounter Additional Health Concerns Infection Onset Date Last Indicated Resolved Time COVID: Suspected 08/25/2023 08/25/2023 08/25/2023 7:15 PM CDT Rhino/Enterovirus Comment:08/31/2023 IP Review: symptoms improved per current RN, afebrile off of antipyretics. OK to come off rhino/enterovirus precautions. Adriane Herrera RN 08/25/2023 08/25/20232022 2:08 PM CDT documented as of this encounter Care Teams Bisque Cleaner Relationship Specialty Start Date End Date Beka Nick MD [address] [facility] [address] [place] [address] PCP - General Family Practice 05/31/23 04/25/24 Amber Montesinos, SHAILESH Pony Edger Transplant 11/17/19 Jil Duncan MD Consulting Physician Infectious Diseases 01/10/20 Anita Gillespie MD Medical Oncologist/Release Manager Medical Oncology 10/07/20 Tabitha Hurley MD [address] [place], [place] [address] Consulting Physician Rheumatology 10/22/21 Massiel Gastelum MD [address] [place] [address] Consulting Physician Otolaryngology 08/27/22 documented as of this encounter
--- OUTSIDE RECORDS SUMMARY | 2024-10-28 06:09 | XMS_ITS | Encounter Summary ---
Author Organization [facility] Address [address] [place] [address] Phone Care Team Providers Care Senior Energy Analyst Name Role Phone Amber Montesinos RN Unavailable [phone] Jil Duncan MD Unavailable [phone] Anita Gillespie MD Unavailable [phone] Tabitha Hurley MD Unavailable [phone] Massiel Gastelum MD Unavailable [phone] Adi Nick MD Primary Care Provider [phone] Encounter Details Date Type Department Care Team (Late st Contact Info) Description 08/25/2023 1:15 PM CDT Ancillary Procedure [facility] Vascular Lab IP [address] [place] [address] Social History Tobacco Use Types [...] on file 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 Gender Identity Not on file Sexual [...] COMPLETE IP Routine 08/25/2023 4:32 PM CDT documented in this encounter Results * US Vein Duplex Lower Extremity Bilateral Complete (08/25/2023 4:32 PM CDT) Anatomical Region Laterality Modality Vascular Bilateral Ultrasound 08/25/2023 5:52 PM CDT Narrative 08/25/2023 11:18 PM CDT [facility] - Department of Vascular Surgery, Vascular Laboratory [address] [place] [address] Lower Extremity Venous Ultrasound Report Patient Name: ADI NICHOLS J : 1995 (28y 6m) Study Date: 08/25/2023 5:52:54 PM Gender: M Tech: Lily MALHOTRA Location: [id number] Ref.Provider: PAOLA MAK Quality: Adequate Order Provider: PAOLA MAK Procedures: Vascular Report: Venous Duplex imaging was performed bilaterally in the lower extremities. The common femoral, femoral, popliteal, posterior tibial, peroneal veins were evaluated for patency, spontaneity and phasicity with Doppler, compression and augmentation maneuvers. Great saphenous vein proximal at the junction was evaluated with compression maneuvers. Indications: Edema. Findings: Performing Stapler Machine: Carol Malhotra RVT. Bilateral: Venous Doppler signals [...] above. Electronically Signed By: Severino Pickett MD [facility] 2023-08-25 23:18:29 CDT CC: CC: Procedure Note Severino Pickett MD - 08/25/2023 [facility] - Department of Vascular Surgery,Vascular Laboratory [address] [place] [address] Lower Extremity Venous Ultrasound Report Patient Name: ADI NICHOLS JPatient ID: [id number] : 1995 (28y 6m)Study Date: 08/25/2023 5:52:54 PM Gender: MAccession #: [id number] Tech: Lily KENDRICKNLocation: [id number] Ref.Provider: Disha MAKality: Adequate Order Provider: Ariel MAK #: [id number] Procedures: Vascular Report: Venous Duplex imaging was performed bilaterally in the lower extremities.The common femoral, femoral, popliteal, posterior tibial, peroneal veins wereevaluated for patency, spontaneity and phasicity with Doppler, compression and augmentationmaneuvers. Great saphenous vein proximal at the junction was evaluated with compressionmaneuvers. Indications: Edema. Findings: Performing Stapler Machine: Carol Malhotra RVT. Bilateral: Venous Doppler signals [...] above. Electronically Signed By: Severino Pickett MD [facility] 2023-08-25 23:18:29 CDT CC: CC: us Paola Verdugo [facility] Final Result documented in this encounter Visit Diagnoses Not on filedocumented in this encounter Additional Health Concerns Infection Onset Date Last Indicated Resolved Time COVID: Suspected 08/25/2023 08/25/2023 08/25/2023 7:15 PM CDT documented as of this encounter Care Teams Senior Energy Analyst Relationship Specialty Start Date End Date Adi Nick MD [address] [place] [address] PCP - General Family Practice 05/31/23 04/25/24 Amber Montesinos, RN Supervisor General Transplant 11/17/19 Jil Duncan MD Consulting Physician Infectious Diseases 01/10/20 Anita Gillespie MD Medical Oncologist/Assistant Professor Of Anthropology Medical Oncology 10/07/20 Tabitha Hurley MD [address] [place] [address] Consulting Physician Rheumatology 10/22/21 Massiel Gastelum MD [address] [place] [address] Consulting Physician Otolaryngology 08/27/22 documented as of this encounter
--- OUTSIDE RECORDS SUMMARY | 2024-10-28 06:09 | XMS_ITS | Encounter Summary ---
Author Organization [facility] Healthcare Address [address] [place] [address] Care Team Providers Care Legal Administrator Name Role Phone Amber Montesinos RN Unavailable [phone] Jil Duncan MD Unavailable [phone] Anita Gillespie MD Unavailable [phone] Tabitha Hurley MD Unavailable [phone] Massiel Gastelum MD Unavailable [phone] Beka Nick MD Primary Care Provider [phone] Reason for Visit * Auth/Cert Specialty Diagnoses / Procedures Referred By Contac t Referred To Contact Diagnoses Multiple myeloma (HCC) Procedures na Referral ID Status Reason Start Date Expiration Date Visits Re quested Visits Authorized [id number] 1 1 Encounter Details Date Type Department Care Team (Latest Contact Info) Description 08/27/2023 1:28 PM CDT - 08/27/2023 1:58 PM CDT Surgery [facility] [address] [place] [address] Charles Damian MD [address] [place], [place] [id number] ESOPHAGOGASTRODUODENOSCOPY ULTRASOUND FINE NEEDLE ASPIRATION/BIOPSY Surgery Details Date/Time Status Location OR Service Patient Class Case Class Case Type Trauma Case? 08/27/2023 1:28 PM Posted 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 Gender Identity Not on file Sexual Orientation Straight 08/22/2021 9: 23 AM CDT documented as of this encounter Last Filed Vital Signs Vital Sign Reading Time Taken Comments Blood Pressure 121/74 08/27/2023 12:24 PM CDT Pulse 85 08/27/2023 12:24 PM CDT Temperature 36.3 ??C (97.3 ??F) 08/27/2023 12:24 PM C DT Respiratory Rate 20 08/27/2023 12:24 PM CDT Oxygen Saturation 96% 08/27/2023 12:24 PM CDT Inhaled Oxygen Concentration - - Weight 68.9 kg (152 lb) 08/26/2023 8:40 PM CDT Height 172.7 cm (5' 8 ) 08/23/2023 3:50 PM CDT Body Mass Index 23.87 09/01/2023 10:53 AM CDT documented in this encounter Discharge Summaries * Tony Baca MD - 09/03/2023 3:16 PM CDT Inpatient Discharge Summary BRIEF OVERVIEW Admitting Provider: Delia Ashby MD Discharge Provider: No att. providers found Primary Care Physician at Discharge: Beka Nick MD [phone] Admission Date: 08/23/2023 Discharge Date: 09/03/2023 Admission Location: [facility] Problems/Diagnoses: Principal Problem (Resolved): Fever in adult [...] CMV lymphadenitis. Oncology offered release from the [facility] [place], given the low likelihood of a relapse [...] Home Health and Infusion Primary disciplines requested: [facility]: IV Catheter Maintenance Labs [...] headache, visual disturbances, weakness and speech changes [facility] [phone] *Provides and delivers home infusion medication *Please contact the pharmacy regarding delivery of antibiotics [facility] [phone] *Provides nursing, medication teaching, IV line dressing [...] 09/07/2023 To Be Determined Em Ruiz, SHAILESH [facility] None 09/08/2023 To Be Determined Parish Vyas, SHAILESH [facility] None 11/02/2023 To Be Determined Rosalio Montana RN [facility] None 01/05/2024 8:15 AM LAB, CAM 7 ONC ONC LAB CAM7 [facility] ONC LAB 01/05/2024 9:00 AM Nancy Butler NP ONC CAM7 [facility] Oncology 01/05/2024 9:30 AM [facility] TXP CAM 12B [facility] GASTRO 02/07/2024 8:40 AM Massiel Gastelum MD OY CLN L20 OY Contact Information for Follow-ups [facility] Home Care Services Specialty: Home Health and Hospice [address] [address] Next Steps: Follow up Questions: Service Line: Home Health and Infusion Primary disciplines requested: [facility]: IV Catheter Maintenance Labs [...] Practice, Family Medicine Relationship: PCP - General [address] [place] [address] Next Steps: Follow up LANE CABIN ATTENDANT documented in this encounter Discharge Instructions * Discharge Instr - Other Orders* Briana Richter RN - 09/03/2023 1:37 PM CDT [facility] [phone] *Provides and delivers home infusion medication *Please contact the pharmacy regarding delivery of antibiotics [facility] [phone] *Provides nursing, medication teaching, IV line dressing [...] day for 3 days 6 tablet 09/03/2023 foscarnet (FOSCAVIR) 24 mg/mL injection Infuse 250 [...] Note Division of Hospital Medicine Name: Beka Ben Lares : 1995 Today's Date: September 05, 2023 Age: 28 y.o. male Admission: 08/23/2023 Bed: [id number] LOS: 11 days Subjective Chief complaint: CMV [...] 65 minutes which was spent performing a tvzt-hw-jssj encounter and personally completing the provider-level activities [...] and Other provider communication. Tony Baca MD LANE CABIN ATTENDANT * Tony Baca MD - 09/02/2023 3:34 PM CDT Oncology Daily Progress Note Division of Hospital Medicine Name: Beka Lares : 1995 Today's Date: September 02, 2023 Age: 28 y.o. male Admission: 08/23/2023 Bed: [id number] LOS: 10 days Subjective Chief complaint: CMV [...] 60 minutes which was spent performing a dhma-li-ozuk encounter and personally completing the provider-level activities [...] Age: 28 y.o. male Admission: 08/23/2023 Bed: [id number] LOS: 9 days Subjective Chief complaint: CMV [...] 55 minutes which was spent performing a msai-zo-xnkl encounter and personally completing the provider-level activities documented in the note. This includes time spent prior to the visit and after the visit in direct care of the patient. This time does not include time spent in any separately reportable services. Tony Baca MD * Tony Baca MD - 08/31/2023 7:05 PM CDT Oncology Daily Progress Note Division of Hospital Medicine Name: Beka Lares : 1995 Today's Date: August 31, 2023 Age: 28 y.o. male Admission: 08/23/2023 Bed: [id number] LOS: 8 days Subjective Chief complaint: CMV [...] % Intake/Output Summary (Last 24 hours) at 08/31/20231906 Last data filed at 08/31/2023 1835 Gross [...] 60 minutes which was spent performing a yase-sj-iwwk encounter and personally completing the provider-level activities [...] Lares Hematology: Immune Globulin (GAMUNEX) - 10% ( ONLY) Current treatment: Treatment 3 (Planned for 12/04/2020) Following planned treatment: Treatment 4 (Planned for 01/01/2021) Objective Vitals: Vitals: 08/31/23 0826 BP: BP Location: Patient Position: Pulse: Resp: Temp: TempSrc: SpO2: 94% Weight: Laboratory Interpretation CBC: Recent Labs Lab Units 08/31/23 023 WBC K/cumm 10.3* HEMOGLOBIN g/dL 10.5* HEMATOCRIT % 28.1* MCV fL 102.6* NEUTROS ABS K/cumm 4.7 Lab Results Component Value Date GLUCOSE 77 08/31/2023 CALCIUM 8.7 08/31/2023 SODIUM 144 08/31/2023 POTASSIUM 4.3 08/31/2023 CO2 24 08/31/2023 CHLORIDE 112 (H) 08/31/2023 BUNSER 12 08/31/2023 CREATININE 0.71 (L) 08/31/2023 CMP: Recent Labs Lab Units 08/31/23 0237 [...] 15.7* PTT: Recent Labs Lab Units 08/30/23 034 APTT sec 33 A Positive Assessment Jaundice/elevated [...] Daniel RN, ANP- Nurse Practitioner Medical Oncology [phone] * Sapna Owen - 08/31/2023 2:06 PM [...] intravenous, BID DIURETIC immune globulin, 400 mg/kg ([place]), intravenous, Once magnesium oxide, 400 mg, oral, [...] 11 10 CREATININE mg/dL 0.71* 0.79* 0.72* REZ-NYZ-IXQHJHK mL/min/1.73 m2 >90 >90 >90 CALCIUM mg/dL [...] Type of Weight Used for EstimatedFluid Needs: [place] Dietary Orders (From admission, onward) Start Ordered 08/31/23 0852 Adult Diet Clear Liquid Diet effective now Question: ([facility]) Diet type Answer: Clear Liquid 08/31/23 0851 [...] time INTERVENTION(S): Summary: Assess for nutrition changes, [place] diet preferences within the limits of nutrition [...] Age: 28 y.o. male Admission: 08/23/2023 Bed: [id number] LOS: 7 days Subjective Chief complaint: CMV [...] Intake/Output Summary (Last 24 hours) at 08/30/2023 0481 Last data filed at 08/30/2023 1755 Gross [...] 60 minutes which was spent performing a mytl-kq-wugw encounter and personally completing the provider-level activities documented in the note. This includes time spent prior to the visit and after the visit in direct care of the patient. This time does not include time spent in any separately reportable services. Case discussed with oncologist attending Dr Gillespie and manager balance attending Dr Bautista. Cause of hyperbilirubinemia, transaminitis and anasarca unclear. Liver and RP LN biopsy pending. Karena Verdugo MD * Karena Mak MD - 08/29/2023 1:19 PM CDT Oncology Daily Progress Note Division of Hospital Medicine Name: Beka Lares : 1995 Today's Date: August 29, 2023 Age: 28 y.o. male Admission: 08/23/2023 Bed: [id number] LOS: 6 days Subjective Chief complaint: CMV [...] 40 minutes which was spent performing a qjow-yf-msdg encounter and personally completing the provider-level activities [...] Beka Lares : 1995 Today's Date: August 28, 2023 Age: 28 y.o. male Admission: 08/23/2023 Bed: [id number] LOS: 5 days Subjective Chief complaint: CMV [...] 45 minutes which was spent performing a hhth-ux-uhpw encounter and personally completing the provider-level activities [...] Age: 28 y.o. male Admission: 08/23/2023 Bed: [id number] LOS: 4 days Subjective Chief complaint: CMV [...] agrees with it. Electronically signed by: Henri Miguel, M.D. Assessment/Plan Elevated LFTs Assessment & Plan [...] 60 minutes which was spent performing a gltr-wy-fjxr encounter and personally completing the provider-level activities [...] Age: 28 y.o. male Admission: 08/23/2023 Bed: [id number] LOS: 3 days Subjective Chief complaint: CMV [...] 55 minutes which was spent performing a wgeh-sb-kosb encounter and personally completing the provider-level activities [...] review-restricted antimicrobial(s): Tom A member of the [facility] antimicrobial stewardship program has reviewed the patient's chart including the above QAV-zribkq-sgheyeumht antimicrobial(s). Criteria for continued use has been [...] Age: 28 y.o. male Admission: 08/23/2023 Bed: [id number] LOS: 2 days Subjective Chief complaint: CMV [...] chest for dedicated chest findings. Dictated by: Morgna Corrales MD The radiology attending physician has [...] 55 minutes which was spent performing a pwrr-ez-ytrx encounter and personally completing the provider-level activities [...] Age: 28 y.o. male Admission: 08/23/2023 Bed: [id number] LOS: 1 days Subjective Chief complaint: CMV [...] - TTE ordered - Hepatology consult - Gamaliel prn - Consider LVP prn Elevated LFTs [...] 60 minutes which was spent performing a nlez-ex-zyhl encounter and personally completing the provider-level activities [...] CMV lymphadenitis. Oncology offered release from the [facility], given the low likelihood of a relapse [...] and leucocytosis History of liver transplant (CMS/HCC) ([facility]) Assessment & Plan - Tacrolimus trough has been low sometimes per chart - Will get AM trough level 30-60 minutes before dose tomorrow - continue current tacrolimus dose at 0.5 mg every other day for now - 08/07 Liver transplant doppler showed Patent arterial, portal and hepatic venous systems. No thrombosis. 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 Recentresistance panel shows maribavir and ganciclovir resistance. Eustachian tube dysfunction, bilateral Assessment & Plan status post endoscopic sinus surgery (bilateral maxillary antrostomy, total ethmoidectomy, frontal sinusotomy, and sphenoidotomy) and septoplasty on 08/28/2022 for chronic rhinosinusitis and recurrent acute exacerbations. Idiopathic thrombocytopenic purpura ([facility]) Assessment & Plan s/p splenectomy in 2012 Normal platelets now Edema of both legs Assessment & Plan Get Echo tomorrow Might be due to ?new transplant failure Albumin 3.1 Get UA and Ptn/Cr ratio to look for proteinuria Macrocytic anemia Assessment & Plan Get B12, folate, and TSH levels Organizing pneumonia (CMS/HCC) ([facility]) Assessment & Plan Ct chest showed New [...] 80 minutes which was spent performing a iggs-bl-lkwp encounter and personally completing the provider-level activities [...] Male Attending MD: Delia Ashby M.D. Room: [facility] Note Status: Finalized Procedure: Colonoscopy Indications: [...] bowel preparation was evaluated using the BBPS ([place] Bowel Preparation Scale) with scores of: Right [...] On: 09/01/2023 3:45 PM Recognized by the [employer] for promoting quality [...] Preparation Temp -- 36.6 ??C (97.9 ??F) -NV 36.5 ??C (97.7 ??F) -IO -- User Santana (r) = Recorded By, (t) = Taken By, (c) = Cosigned By Initials Name Sundeep Sorto, Nancy Armas, SHAILESH Nevarez, SHAILESH Agudelo CH, Christopher Trevon Vascular Access Documentation (last 4 [...] Type PICC double -AW -- Time in 1599 - -- Vascular Access Procedures PICC line assessment;PICC [...] # 2: #2 Red, -AW Size (Fr): 4-AW Orientation: Right -AW Location: Basilic -AW Technique: Modified seldinger;Internal stiffener stylet removed easily;Ultrasound used to locate and cannulate vein;Standard insertion technique with peel away sheath -AW Lot #: [id number] -AW Expiration Date: 04/30/24 -AW Trimmed Length [...] (c) = Cosigned By Initials Name Sundeep Sorto RN GS Sutton, Gloria, RN PICC placed per order w/o complication. 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 Paracentesis Date/Time: 08/27/2023 2:24 PM Performed by: Fabi Son MD Authorized by: Marylou Goodson MD [place] Protocol: RN Notified of Procedure: yes Informed [...] is not recommended at this time. A agricultural sales representative ultrasound image of those obtained at the bedside are included below: Marylou Goodson MD * Rickie, Charles Gross MD - 08/27/2023 1:02 PM CDTAssociated Order(s): [facility] Patient Name: Beka Lares Procedure Date: 08/27/2023 1:02 PM Date of : 1995 Admit Type: Inpatient Age: 28 Gender: Male Attending MD: Charles Damian M.D. Room: [facility] ENDOSCOPY ROOM 2 Note Status: [...] and informed consent was obtained.The GIF [id number] endoscope was introduced through the mouth, and advanced to the second part of duodenum The Olympus curved linear array therapeutic endosonoscope [id number] was introduced through the mouth, and advanced [...] Quintero RN in the GI office at [phone] for your final results in 7 days. Attending Participation: I personally performed the entire procedure. Electronically Signed By: Charles Damian M.D. Charles Damian M.D. 08/27/2023 2:42:07 PM . Number of Addenda: 0 Note Initiated On: 08/27/2023 1:02 PM Recognized by the [employer] for promoting quality in endoscopy documented in this encounter Consult Notes * Adina Chandler, CALLIE - 09/03/2023 11:29 AM CDTAssociated Order(s): CONSULT [...] potassium phosphate Recent Labs Lab Units 09/03/23 03009/02/2331408/31/232114 SODIUM mmol/L 143 144 145 POTASSIUM PLASMA mmol/L 3.9 4.0 3.8 CHLORIDE mmol/L 110 112* 110 CO2 mmol/L 26 25 26 BUN SERUM mg/dL 11 14 11 CREATININE mg/dL 0.80 0.73* 0.71* RYE-ATL-XJYQAMY mL/min/1.73 m2 >90 >90 >90 CALCIUM mg/dL 8.4* 8.4* 8.1* ALBUMIN g/dL 2.6* 2.4* 2.7* PHOSPHORUS PLASMA mg/dL 3.4 4.3 3.9 MAGNESIUM mg/dL 1.5 1.8 1.6 Recent Labs Lab Units 09/03/23 0301 09/02/2331408/31/23232408/31/23211408/31/2323608/30/2334608/29/23309 GLUCOSE mg/dL 85 142 -- 68* 77 [...] Type of Weight Used for EstimatedFluid Needs: [place] Dietary Orders (From admission, onward) Start Ordered 09/01/23 175 Adult Diet Restricted; 2 GM Sodium Diet effective now Question Answer Comment ([facility]) Diet type Restricted Fat / Sodium Restriction: 2 GM Sodium 09/01/231755 Allergies: Reviewed. IMPRESSION: 09/03: Consulted for low [...] time INTERVENTION(S): Summary: Assess for nutrition changes, [place] diet preferences within the limits of nutrition [...] Diet advancement Adina Chandler MS, RD, LD [phone] * Cathleen Daniel, AIR CONTROL ELECTRONICS OPERATOR - 08/24/2023 4:33 PM CDTAssociated Order(s): IP [facility]SULT [facility] Images from the original note were [...] --> partial response, 2012 3. 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 [...] 5 (09/2017-12/2017) with IT MTX, last ciarra,o 2018, h/o CVID. He is admitted with fever, [...] He was seen in follow up at ID clinic yesterday, at which point he had [...] TW Conv) Diabetes type II Sister Family history of type 2 diabetes mellitus - (Added by TW Conv) Anesthesia problems Other No Known Problems [...] are normal. The limited view of the [place] is unremarkable. The visualized portions [...] Disease Team: Transplant Contact Information: Please see [facility] Treatment Team listing for up-to-date contact [...] [place] [address]. He was also noted to have lymphadenopathy [...] levels starting 06/20/22. He was admitted to [facility] 07/09-07/12/22 due to persistent CMV viremia while on marabovir along with 2 week history of cough, fevers, chills, fatigue/malaise. RVP positive for rhinovirus and adenovirus. CMV resistance testing obtained which showed resistance to maribavir. This was discontinued on 07/16/23and he was restarted on Valcyte 900 mg PO BID. CMV levels at OSH on 11/14/22 were 43352. Reached out to patient and it seemed [...] this year his CMV viral load reached 03220 (4 log) while on Valgan with some [...] mg capsule Current Facility-Administered Medications Ordered in [facility] Medication Dose Route Frequency Provider Last Rate [...] (premix) 3.375 g 3.375 g intravenous Q6H [facility] Olena Null MD Stopped at 08/24/23 0625 [...] mg 0.5 mg oral Every other day lOena Null MD 0.5 mg at 08/24/23 0853 ursodioL (ACTIGALL) capsule 600 mg 600 mg oral Daily with dinner Olena Null MD 600 mg at 08/23/23 1831 vancomycin 1,250 mg/262.5 mL in sodium chloride 0.9% (premix) 1,250 mg 1,250 mg intravenous Q12H Olena Null MD Stopped at 08/24/23 0840 No current [facility]-ordered outpatient medications on file. Anti-infectives (From [...] (98.5 ??F) SpO2: 96% Vitals: 08/23/23 1935 08/23/23199908/24/23 0605 08/24/23 0850 BP: 121/50 111/64 116/68 [...] HIV Screen: Lab Results Component Value Date [id number] Nonreactive 01/03/2019 CD4:No results found for: CD4ABS , CD4PCT Common Virologic Results: Lab Results Component Value Date YMG1CLF Not Detected 04/06/2017 PPD Negative 01/17/2020 TOXOIGG Negative 12/21/2019 Diagnostics: EKG:No results found for: VR , AR , PRIMSEC , QRSIMSEC , QTIMSEC , QT , PA , RA , TA , DIAG Echo:Results for orders placed during the hospital encounter of 10/23/23 Transthoracic Echo (TTE) Complete W Doppler/CF Narrative Patient name: Beka Lares Date of test: 08/24/2023 Type of test: TTE w/Doppler Hospital #: 0 Date of : 1995 (M) Slag Expander: Saige Carrasco [facility] Referring Physician: OLENA NULL MD Contrast Agent: Contrast Administered by: Supervised/Interpreted by: Sharita [place] MD Diagnosis: Location: [facility] Reason for test: peripheral edema MV [...] 2=Hypo 3=Akinetic 4=Dyskin./Aneurysm 0=Not visualized) Parasternal Long [place]:MAS=1 BAS=1 MIL=1 NGUYỄN=1 Parasternal Short [place]:MAS=1 MIS=1 MN=1 MIL=1 MAL=1 MA=1 Apical 4 Chambers:=1 MIS=1 BIS=1 BAL=1 MAL=1 AL=1 AC=1 Apical 2 Chambers:AI=1 MN=1 BI=1 BA=1 MA=1 AA=1 AC=1 LV Global [...] MD By signing this report, the attending offset machine operator certifies that he or she has personally [...] this year his CMV viral load reached 80259 (4 log) while on Valgan with some [...] me, contact in EPIC or Transplant ID AIR CONTROL ELECTRONICS OPERATOR for questions Today, I am treating the patient for GN septicemia and CMV viremia which can cause in the short-term future in the absence of appropriate treatment, as described in the note., Independently interpreted test CMV viremi and blood cultures which shows GN bacteremia., Discussed management of CMV and GN nbacteremia with hepatology home energy consultant and Dr Solano., Discussed test interpretation [...] discharge. Meds will be delivered to home. [facility] Infusion Pharm[facility] will be providing meds. [facility] Home Health will be providing [facility]. SOC 09/04/23. Discharge orders received and forwarded to [facility]fusion Pharm[facility] and Home Health. Briana Richter applications consultantHeel Buffer [facility] Home Care and Infusion [phone] * Plan of Care - Gretchen Hou [...] History: -SAM CALLAHAN. In good spirits today -Tac trough 5.9 [...] Infectious Diseases Discharge Recommendations for Patients on Mcc IV Antibiotics Diagnosis: CMV viremia, E. Coli [...] hepatitis s/p OLT '09 c/b PTLD dx'd 2016, last chemo in 2018 with h/o long-term CMV viremia, currently admitted with abd pain, jaundice, elevated LFTs, and fever. Re: CMV Has h/o varying degrees of CMV since 2018 and is followed by Dr. Duncan in [...] bacteremia. Follow Up Plan: fax results to [phone], follow up with Dr. Prema Duncan in 2-3 wks, After discharge additional questions can be directed to the clinic at [phone], Patient has been educated about the risks [...] BE FAXED TO INFECTIOUS DISEASE CLINIC AT: [phone] PLEASE CALL THE INFECTIOUS DISEASES CLINIC WITH ANY QUESTIONS AT: [phone] Leaving the Hospital on IV Antibiotics Information [...] with antibacterial soap and use alcohol-based hand financial risk manager before touching yourcatheter or changing wound dressings. [...] Emergency Room. Contact Infectious Diseases Clinic: Toll-free: [phone] Hospital ID Doctor: Prema Smith [facility] Infectious Diseases Offices [facility] [address], [address] [place] [address] Patient parking available north of [facility] General Infectious Diseases and LVAD Offices [facility] General ID Clinic [address], [address] [place] [address] [facility] ID Clinic [address], [address] [place] [address] * Plan of Care - Sidra Zaidi, YIFAN - 09/01/2023 8:51 AM CDT Respiratory Medication [...] progress. * Plan of Care - Bonita Rahman RN - 09/01/2023 4:01 AM CDT Goals: Clinical [...] [Urine:3475] I/O this shift: In: - Out: 5 [Urine:2225] Lab/Radiology/Diagnostic Review: Recent Labs Lab Units [...] for the remainder of today. NPO at DE. -The patient will need golytely split prep [...] hepatitis s/p OLT '09 c/b PTLD dx'd 2016, last chemo in 2018 Interval History: Afebrile. [...] 10 % infusion 25 g, 400 mg/kg ([place]man), intravenous, Once, Tony Baca MD magnesium oxide (MAG-OX) tablet 400 mg, 400 mg, oral, BID, Karean Mak MD, 400 mg at 08/31/23 0810 [...] of care with BMT La Baxter DNP, ANP-BC - M-F 8am-4pm (ID Transplant Fellow: [phone]) Today, I am treating the patient for [...] patient???s medical record. Respectfully Laci PARKER RN [facility] [email or web address] [phone] * Plan of Care - Mary Nevarez [...] [Urine:450] Lab/Radiology/Diagnostic Review: Recent Labs Lab Units 08/30/23 0347 08/29/23 0310 08/28/23 0300 08/25/23 0533 [...] F/U Appointments: per oncology Kaelyn Rodriguez, MSN, wood machinist apprentice For emergent case management needs after 4:30 PM, please call the machine learning intern at telephone number: For weekend and holiday case management needs from the hours of 8:00 AM to 4:30 PM, please call [facility] manager rn case at telephone number: For weekend assistance, please check the treatment team in [facility] for the assigned manager rn case or contact the weekend Case Management phone at [phone]. * Plan of Care - Marlene Rae [...] completed shifts: In: 6527 [P.O.:622; I.V.:5905] Out: 2724 [Urine:2724] I/O this shift: In: - Out: 1999 [...] History: -SINDY, VSS -ALP downtrending 213 (245), AST/ALT lateral [...] Interview Note Information Obtained From: Patient (08/24/23 2066) Admission Source: ID Clinic Impression: 28 y.o. [...] (car per parent) (08/24/231444) Health Insurance Coverage: Je[employer] (pt employer); [employer] Prescription Coverage: yes Pharmacy: [id number] - [place], [place] - [address] [place] [id number] Primary Care Provider: Beka Nick MD - confirmed Prior to Admission: Functional Status: Independent with ADLs Primary Caregiver: Self Support System: Parent (Brooklynn/[phone], Theodore/[phone]) Home Care Services: No Durable Medical Equipment: [...] Collaboration with patient, MD, direct care nurse, Director Blood Bank, and other members of the health care team to assure needed interventions completed. 2. Return patient to optimal level of self-care post discharge. 3. Ornamenter Hand will follow for Discharge Planning - interventions [...] Idiopathic thrombocytopenic purpura (HCC) s/p splenectomy in 2012. Platelets wnl now. * Assessment & Plan [...] CDT Colitis COLONOSCOPY 09/01/2023 3:45 PM CDT POCT GLUCOSE DEVICE Routine 08/31/2023 11:25 PM [...] Results * eGFR (09/03/2023 3:01 AM CDT) [facility] eGFR >90 90 - 130 mL/min/1. 73 m2 [facility] Comment: Interpretive Data Reference Interval Normal [...] MD LAB BLOOD ORDERABLES Fin al Result [facility] One [facility] Department [place] [address] * (ABNORMAL) Differential, auto (09/03/2023 3:01 AM CDT) [facility] Neutrophil abs 4.2 1.7 - 6.5 K/cumm [facility] Imm gran abs 0.0 0.0 - 0.1 K/cumm [facility] Lymphocyte abs 4.4(H) 0.8 - 3.3 K/cumm [facility] Monocyte abs 0.5 0.2 - 0.8 K/cumm [facility] Eosinophil abs 0.6(H) 0.0 - 0.5 K/cumm [facility] Basophil abs 0.1 0.0 - 0.1 K/cumm [facility] Neutrophil pct 42.4 % [facility] Comment: Confirmed by smear review Interpretive Data Percent cell count reference ranges are not reported, since discordance with absolute values may lead to misinterpretation of CBC data. Current Interpretive Data was last revised on 2018. Imm gran pct 0.3 % [facility] Comment: Interpretive Data Percent cell count reference ranges are not reported, since discordance with absolute values may lead to misinterpretation of CBC data. Current Interpretive Data was last revised on 2018. Lymphocyte pct 45.0 % [facility] Comment: Interpretive Data Percent cell count reference ranges are not reported, since discordance with absolute values may lead to misinterpretation of CBC data. Current Interpretive Data was last revised on 2018. Monocyte pct 5.5 % [facility] Comment: Interpretive Data Percent cell count reference ranges are not reported, since discordance with absolute values may lead to misinterpretation of CBC data. Current Interpretive Data was last revised on 2018. Eosinophil pct 6.0 % [facility] Comment: Interpretive Data Percent cell count reference ranges are not reported, since discordance with absolute values may lead to misinterpretation of CBC data. Current Interpretive Data was last revised on 2018. Basophil pct 0.8 % [facility] Comment: Interpretive Data Percent cell count reference ranges are not reported, since discordance with absolute values may lead to misinterpretation of CBC data. Current Interpretive Data was last revised on 2018. Blood 09/03/2023 3:01 AM CDT 09/03/2023 3:38 AM CDT Olena Null MD LAB BLOOD ORDERABLES Final R esult Performing Organization Address [facility]/ZIP Co de Phone Number [facility] [place] [address] * Tacrolimus level trough (09/03/2023 3:01 AM CDT) Tacrolimus trough 6.2 ng/mL [facility] Comment: Interpretive Data Testing performed by [...] BLOOD ORDERABLES Final Result Performing Organization Address [facility] Co de Phone Number [facility] [place] [address] * (ABNORMAL) Hepatic function panel (09/03/2023 3:01 AM CDT) Bilirubin, total 4.2(H) 0.1 - 1.2 mg/dL [facility] Bilirubin, direct 3.2(H) 0.1 - 0.3 mg/dL [facility] Protein, pl 4.5(L) 6.5 - 8.5 g/dL [facility] Albumin 2.6(L) 3.5 - 5.0 g/dL [facility] Alk phos 195(H) 40 - 130 Units/L [facility] ALT 43 7 - 55 Units/L [facility] AST 81(H) 10 - 50 Units/L [facility] Blood 09/03/2023 3:01 AM CDT 09/03/2023 3:38 AM CDT Delia Ashby MD LAB BLOOD ORDERABLES Final Result [facility] Department [place] [address] * (ABNORMAL) Basic metabolic panel (09/03/2023 3:01 AM CDT) Pathologist [facility] Sodium 143 135 - 145 mmol/L [facility] Potassium, pl 3.9 3.3 - 4.9 mmol/L [facility] Chloride 110 97 - 110 mmol/L [facility] CO2 26 22 - 32 mmol/L [facility] Anion gap 7 2 - 15 mmol/L [facility] BUN 11 6 - 25 mg/dL [facility] Creatinine 0.80 0.80 - 1.30 mg/dL [facility] Glucose 85 70 - 199 mg/dL [facility] Comment: Interpretive Data Fasting glucose [...] 2022. Calcium 8.4(L) 8.5 - 10.3 mg/dL [facility] Blood 09/03/2023 3:01 AM CDT 09/03/2023 3:38 AM CDT Delia Ashby MD LAB BLOOD ORDERABLES Final Result Performing Organization Address City/[facility]/ZIP Co de Phone Number [facility] One [facility] Department [place] [address] * Phosphorus (09/03/2023 3:01 AM CDT) Phosphorus, pl 3.4 2.3 - 4.5 mg/dL [facility] Blood 09/03/2023 3:01 AM CDT 09/03/2023 3:38 AM CDT Delia Ashby MD LAB BLOOD ORDERABLES Final Result Performing Organization Address City/[facility]/ZIP Co de Phone Number [facility] Department [place] [address] * Magnesium (09/03/2023 3:01 AM CDT) [facility] Magnesium 1.5 1.4 - 2.5 mg/dL [facility] Blood 09/03/2023 3:01 AM CDT 09/03/2023 3:38 AM CDT Delia Ashby MD LAB BLOOD ORDERABLES Final Result Performing Organization Address City/[facility] de Phone Number [facility] Department [place] [address] * (ABNORMAL) CBC with auto differential (09/03/2023 3:01 AM CDT) [facility] WBC 9.8 3.8 - 9.9 K/cumm [facility] Hgb 11.2(L) 13.0 - 17.5 g/dL [facility] Comment: Interpretive Data A reference range for this assay has not been established for patients with an unknown legal sex. Please refer to the laboratory test catalog for established sex-specific reference intervals. Current interpretive data was last revised on 2023. Hct 30.7(L) 38.9 - 50.3 % [facility] Comment: Interpretive Data A reference range for this assay has not been established for patients with an unknown legal sex. Please refer to the laboratory test catalog for established sex-specific reference intervals. Current interpretive data was last revised on 2023. Plt 190 150 - 400 K/cumm [facility] MPV 11.7 9.1 - 12.3 fL [facility] RBC 2.90(L) 4.30 - 5.80 M/cumm [facility] Comment: Interpretive Data A reference range for this assay has not been established for patients with an unknown legal sex. Please refer to the laboratory test catalog for established sex-specific reference intervals. Current interpretive data was last revised on 2023. MCV 105.9(H) 81.3 - 96.4 fL [facility] MCH 38.6(H) 27.1 - 33.3 pg [facility] MCHC 36.5(H) 32.3 - 35.7 g/dL [facility] RDW CV 21.6(H) 11.1 - 14.9 % [facility] RDW SD 84.0(H) 35.7 - 48.1 fL [facility] NRBC abs 0.02(H) 0.00 - 0.01 K/cumm [facility] Blood 09/03/2023 3:01 AM CDT 09/03/2023 3:38 AM CDT us Delia Ashby MD LAB BLOOD ORDERABLES Final Result [facility] One [facility] Department [place] [address] * (ABNORMAL) Cytomegalovirus (CMV) DNA PCR, quantitative Blood (09/03/2023 3:01 AM CDT) [facility] CMV DNA Detected( A) [facility] Comment: Interpretive Data: The quantifiable range of this assay is 34 IUnits/mL to 10,000,000 IUnits/mL (1.53 log IUnits/mL to 7.0 log IUnits/mL). Testing was performed by the NIA 6800 CMV Test ([employer] Testing performed at [facility]. Current interpretive data was last revised on 2021. CMV DNA IU/mL 252 IUnits/mL [facility] CMV DNA log IU/mL 2.40 log IUnits/mL [facility] Blood 09/03/2023 3:01 AM CDT 09/03/2023 4:01 AM CDT us Tony Baca MD LAB MICROBIOLOGY - GENERAL OR DERABLES Final Result Performing Organization Address [facility] Co de Phone Number [facility] [place] [address] * Uric acid (09/02/2023 3:15 AM CDT) Uric acid 4.3 3.0 - 8.0 mg/dL [facility] Blood 09/02/2023 3:15 AM CDT 09/02/2023 3:31 AM CDT us Anita Gillespie MD LAB BLOOD ORDERABLES Final Result Performing Organization Address [facility] de Phone Number [facility] Department [place] [address] * eGFR (09/02/2023 3:15 AM CDT) Pathologist [facility] eGFR >90 90 - 130 mL/min/1. 73 m2 [facility] Comment: Interpretive Data Reference Interval Normal [...] MD LAB BLOOD ORDERABLES Fin al Result [facility] Department [place] [address] * (ABNORMAL) Lactate dehydrogenase (LD) (09/02/2023 3:15 AM CDT) Lactate dehydrogenase (LDH) 434(H) 100 - 250 Units/L [facility] Blood 09/02/2023 3:15 AM CDT 09/02/2023 3:31 AM CDT us Anita Gillespie MD LAB BLOOD ORDERABLES Final Result [facility] Department [place] [address] * (ABNORMAL) Differential, auto (09/02/2023 3:15 AM CDT) Neutrophil abs 3.5 1.7 - 6.5 K/cumm [facility] Imm gran abs 0.0 0.0 - 0.1 K/cumm [facility] Lymphocyte abs 3.8(H) 0.8 - 3.3 K/cumm [facility] Monocyte abs 0.6 0.2 - 0.8 K/cumm [facility] Eosinophil abs 0.6(H) 0.0 - 0.5 K/cumm [facility] Basophil abs 0.1 0.0 - 0.1 K/cumm [facility] Neutrophil pct 40.8 % [facility] Comment: Interpretive Data Percent cell count reference ranges are not reported, since discordance with absolute values may lead to misinterpretation of CBC data. Current Interpretive Data was last revised on 2018. Imm gran pct 0.3 % [facility] Comment: Interpretive Data Percent cell count reference ranges are not reported, since discordance with absolute values may lead to misinterpretation of CBC data. Current Interpretive Data was last revised on 2018. Lymphocyte pct 44.6 % [facility] Comment: Interpretive Data Percent cell count reference ranges are not reported, since discordance with absolute values may lead to misinterpretation of CBC data. Current Interpretive Data was last revised on 2018. Monocyte pct 6.5 % [facility] Comment: Interpretive Data Percent cell count reference ranges are not reported, since discordance with absolute values may lead to misinterpretation of CBC data. Current Interpretive Data was last revised on 2018. Eosinophil pct 7.0 % [facility] Comment: Interpretive Data Percent cell count reference ranges are not reported, since discordance with absolute values may lead to misinterpretation of CBC data. Current Interpretive Data was last revised on 2018. Basophil pct 0.8 % [facility] Comment: Interpretive Data Percent cell count reference ranges are not reported, since discordance with absolute values may lead to misinterpretation of CBC data. Current Interpretive Data was last revised on 2018. Blood 09/02/2023 3:15 AM CDT 09/02/2023 3:32 AM CDT us Olena Null MD LAB BLOOD ORDERABLES Final R esult [facility] One [facility] Department [place] [address] * Tacrolimus level trough (09/02/2023 3:15 AM CDT) [facility] Tacrolimus trough 5.9 ng/mL [facility] Comment: Interpretive Data Testing [...] BLOOD ORDERABLES Final Result Performing Organization Address City/[facility]/ZIP Co de Phone Number [facility] [place] [employer] [address] * (ABNORMAL) Hepatic function panel (09/02/2023 3:15 AM CDT) Bilirubin, total 4.0(H) 0.1 - 1.2 mg/dL [facility] Bilirubin, direct 3.0(H) 0.1 - 0.3 mg/dL [facility] Protein, pl 4.5(L) 6.5 - 8.5 g/dL [facility] Albumin 2.4(L) 3.5 - 5.0 g/dL [facility] Alk phos 199(H) 40 - 130 Units/L [facility] ALT 42 7 - 55 Units/L [facility] AST 77(H) 10 - 50 Units/L [facility] Blood 09/02/2023 3:15 AM CDT 09/02/2023 3:31 AM CDT Delia Ashby MD LAB BLOOD ORDERABLES Final Result Performing Organization Address City/[facility]/ZIP Co de Phone Number [facility] Department [employer] [place] [address] * (ABNORMAL) Basic metabolic panel (09/02/2023 3:15 AM CDT) Sodium 144 135 - 145 mmol/L [facility] Potassium, pl 4.0 3.3 - 4.9 mmol/L [facility] Chloride 112(H) 97 - 110 mmol/L [facility] CO2 25 22 - 32 mmol/L [facility] Anion gap 7 2 - 15 mmol/L [facility] BUN 14 6 - 25 mg/dL [facility] Creatinine 0.73(L) 0.80 - 1.30 mg/dL [facility] Glucose 142 70 - 199 mg/dL [facility] Comment: Interpretive Data Fasting glucose [...] 2022. Calcium 8.4(L) 8.5 - 10.3 mg/dL [facility] Blood 09/02/2023 3:15 AM CDT 09/02/2023 3:31 AM CDT Delia Ashby MD LAB BLOOD ORDERABLES Final Result Performing Organization Address City/[facility]/ZIP Co de Phone Number [facility] Department [place] [employer] [place] [address] * Phosphorus (09/02/2023 3:15 AM CDT) Pathologist [facility] Phosphorus, pl 4.3 2.3 - 4.5 mg/dL [facility] Blood 09/02/2023 3:15 AM CDT 09/02/2023 3:31 AM CDT Delia Ashby MD LAB BLOOD ORDERABLES Final Result Performing Organization Address City/[facility]/ZIP Co de Phone Number [facility] Department [place] [address] * Magnesium (09/02/2023 3:15 AM CDT) Pathologist [facility] Magnesium 1.8 1.4 - 2.5 mg/dL [facility] Blood 09/02/2023 3:15 AM CDT 09/02/2023 3:31 AM CDT Delia Ashby MD LAB BLOOD ORDERABLES Final Result [facility] One [facility] [place] [address] * (ABNORMAL) CBC with auto differential (09/02/2023 3:15 AM CDT) Pathologist [facility] WBC 8.6 3.8 - 9.9 K/cumm [facility] Hgb 11.1(L) 13.0 - 17.5 g/dL [facility] Comment: Interpretive Data A reference range for this assay has not been established for patients with an unknown legal sex. Please refer to the laboratory test catalog for established sex-specific reference intervals. Current interpretive data was last revised on 2023. Hct 30.9(L) 38.9 - 50.3 % [facility] Comment: Interpretive Data A reference range for this assay has not been established for patients with an unknown legal sex. Please refer to the laboratory test catalog for established sex-specific reference intervals. Current interpretive data was last revised on 2023. Plt 212 150 - 400 K/cumm [facility] MPV 12.3 9.1 - 12.3 fL [facility] RBC 2.89(L) 4.30 - 5.80 M/cumm [facility] Comment: Interpretive Data A reference range for this assay has not been established for patients with an unknown legal sex. Please refer to the laboratory test catalog for established sex-specific reference intervals. Current interpretive data was last revised on 2023. MCV 106.9(H) 81.3 - 96.4 fL [facility] MCH 38.4(H) 27.1 - 33.3 pg [facility] MCHC 35.9(H) 32.3 - 35.7 g/dL [facility] RDW CV 21.7(H) 11.1 - 14.9 % [facility] RDW SD 87.5(H) 35.7 - 48.1 fL [facility] NRBC abs 0.00 0.00 - 0.01 K/cumm [facility] Blood 09/02/2023 3:15 AM CDT 09/02/2023 3:32 AM CDT Delia Ashby MD LAB BLOOD ORDERABLES Final Result Performing Organization Address [facility] Co de Phone Number [facility] Department [place] [address] * Type and screen (09/02/2023 3:15 AM CDT) ABO Rh A Positive Carol, indirect Negative [facility] Comment:Patient has previous antibody history Blood 09/02/2023 3:15 AM CDT 09/02/2023 3:33 AM CDT Narrative [facility] - 09/02/2023 4:54 AM CDT Has the patient had Daratumumab or Isatuximab in the past 6 months?->Unknown Delia Ashby MD LAB BLOOD BANK TEST ORDERA BLES Final Result Performing Organization Address [facility] Co de Phone Number [facility] Department [place] [address] * Surgical pathology (09/01/2023 4:02 PM CDT) Tissue (Ileum, Biopsy) 09/01/2023 4:02 PM CDT Tissue (Colon, Biopsy) 09/01/2023 4:06 PM CDT Narrative PATHOLOGY [facility] - 09/02/2023 12:35 PM CDT EPIC results best viewed via link to PDF [facility] Yulisa Garcia Laboratory of Surgical Pathology One [facility], [place] [address] Note to Patients: This report may contain [...] Gender: ??M : ??1995 (Age: 28) Address: ??[address] [place] [address] ??[id number] Hospital #: ??[id number] Taken:09/01/2023 Received:09/01/2023 Reported: 09/02/2023 Patient Type: [facility] Inpatient ?? Service: Oncology Location: [facility] ??[address] Physician(s): ??Delia Ashby M.D. Beka Nick M.D. [...] Jar 0. ?? sxst/09/01/2023 17:03 PA(s): Moni aPppas By this signature, I attest that the above diagnosis is based upon my personal examination of the slides(and/or other material). Addenda/Procedures The performance characteristics of some immunohistochemical stains, fluorescence in-situ hybridization tests and immunophenotyping by flow cytometry cited in this report (if any) were determined by the Surgical Pathology and Flow Cytometry Departments at [facility] as part of an ongoing quality assurance project manager program and in compliance with federally mandated [...] Surgical Pathology and Flow Cytometry Departments of [facility]. ??It has not been cleared or approved by the U. S. Food and Drug Administration. IMAGES AND SCANNED DOCUMENTS, IF INCLUDED, ONLY VIEWABLE IN PDF VERSION OF REPORT Delia Ashby MD LAB PATHOLOGY ORDERABLES F inal Result PATHOLOGY [facility] 3rd Floor [place], [place] [phone] * COLONOSCOPY (09/01/2023 3:45 PM CDT) Anatomical Region Laterality Modality Other Narrative Procedure Note Delia Ashby MD - 09/01/2023 3:45 PM CDT [facility] Patient Name: Beka Lares Procedure Date: 09/01/2023 3:45 PM Date of : 1995 Admit Type: Inpatient Age: 28 Gender: Male Attending MD: Delia Ashby M.D. Room: [facility] Note Status: Finalized Procedure: Colonoscopy Indications: [...] the bowel preparation was evaluatedusing the BBPS ([place] Bowel Preparation Scale) withscores of: Right Colon [...] On: 09/01/2023 3:45 PM Recognized by the [employer] for promoting quality in endoscopy us Delia Ashby MD ENDOSCOPY PROCEDURES Final Result * POCT glucose (08/31/2023 11:25 PM CDT) Glucose, POC 107 70 - 199 mg/dL [facility] Blood 08/31/2023 11:2 5 PM CDT 08/31/2023 11:25 PM CDT us Anita Gillespie MD LAB POCT ORDERABLES - KIAH CE Final Result [facility] One [facility] Department [place] [address] * eGFR (08/31/2023 9:15 PM CDT) Pathologist [facility] eGFR >90 90 - 130 mL/min/1. 73 m2 [facility] Comment: Interpretive Data Reference Interval Normal [...] Gillespie MD LAB BLOOD ORDERABLES Final Result [facility] One [facility] Department [place] [address] * (ABNORMAL) Differential, auto (08/31/2023 9:15 PM CDT) Neutrophil abs 4.3 1.7 - 6.5 K/cumm [facility] Imm gran abs 0.1 0.0 - 0.1 K/cumm [facility] Lymphocyte abs 3.5(H) 0.8 - 3.3 K/cumm [facility] Monocyte abs 0.8 0.2 - 0.8 K/cumm [facility] Eosinophil abs 0.4 0.0 - 0.5 K/cumm [facility] Basophil abs 0.1 0.0 - 0.1 K/cumm [facility] Neutrophil pct 47.0 % [facility] Comment: Interpretive Data Percent cell count reference ranges are not reported, since discordance with absolute values may lead to misinterpretation of CBC data. Current Interpretive Data was last revised on 2018. Imm gran pct 1.4 % [facility] Comment: Interpretive Data Percent cell count reference ranges are not reported, since discordance with absolute values may lead to misinterpretation of CBC data. Current Interpretive Data was last revised on 2018. Lymphocyte pct 38.0 % [facility] Comment: Interpretive Data Percent cell count reference ranges are not reported, since discordance with absolute values may lead to misinterpretation of CBC data. Current Interpretive Data was last revised on 2018. Monocyte pct 8.4 % [facility] Comment: Interpretive Data Percent cell count reference ranges are not reported, since discordance with absolute values may lead to misinterpretation of CBC data. Current Interpretive Data was last revised on 2018. Eosinophil pct 4.3 % [facility] Comment: Interpretive Data Percent cell count reference ranges are not reported, since discordance with absolute values may lead to misinterpretation of CBC data. Current Interpretive Data was last revised on 2018. Basophil pct 0.9 % [facility] Comment: Interpretive Data Percent cell count reference ranges are not reported, since discordance with absolute values may lead to misinterpretation of CBC data. Current Interpretive Data was last revised on 2018. Blood 08/31/2023 9:15 PM CDT 08/31/2023 9:28 PM CDT Anita Gillespie MD LAB BLOOD ORDERABLES Final Result Performing Organization Address [facility] Co de Phone Number [facility] Department [place] [address] * Tacrolimus level trough (08/31/2023 9:15 PM CDT) Pathologist [facility] Tacrolimus trough 5.0 ng/mL [facility] Comment: Interpretive Data Testing performed by [...] 9:15 PM CDT 08/31/2023 9:29 PM CDT Anita Gillespie MD LAB BLOOD ORDERABLES Final Result Performing Organization Address [facility] Co de Phone Number [facility] One [facility] Department [place] [address] * Phosphorus (08/31/2023 9:15 PM CDT) Phosphorus, pl 3.9 2.3 - 4.5 mg/dL [facility] Blood 08/31/2023 9:15 PM CDT 08/31/2023 9:28 PM CDT Anita Gillespie MD LAB BLOOD ORDERABLES Final Result Performing Organization Address City/[facility] Co de Phone Number [facility] [place] [address] [place] [address] * Magnesium (08/31/2023 9:15 PM CDT) Pathologist [facility] Magnesium 1.6 1.4 - 2.5 mg/dL [facility] Blood 08/31/2023 9:15 PM CDT 08/31/2023 9:28 PM CDT us Anita Gillespie MD LAB BLOOD ORDERABLES Final Result Performing Organization Address [facility] [place] [address] * (ABNORMAL) Hepatic function panel (08/31/2023 9:15 PM CDT) [facility] Bilirubin, total 5.3(H) 0.1 - 1.2 mg/dL [facility] Bilirubin, direct 4.1(H) 0.1 - 0.3 mg/dL [facility] Protein, pl 4.8(L) 6.5 - 8.5 g/dL [facility] Albumin 2.7(L) 3.5 - 5.0 g/dL [facility] Alk phos 202(H) 40 - 130 Units/L [facility] ALT 46 7 - 55 Units/L [facility] AST 82(H) 10 - 50 Units/L [facility] Blood 08/31/2023 9:15 PM CDT 08/31/2023 9:28 PM CDT us Anita Gillespie MD LAB BLOOD ORDERABLES Final Result Performing Organization Address City/[facility]/ZIP Co de Phone Number [facility] [address] [place] [address] * (ABNORMAL) CBC with auto differential (08/31/2023 9:15 PM CDT) Pathologist [facility] WBC 9.2 3.8 - 9.9 K/cumm [facility] Hgb 11.5(L) 13.0 - 17.5 g/dL [facility] Comment: Interpretive Data A reference range for this assay has not been established for patients with an unknown legal sex. Please refer to the laboratory test catalog for established sex-specific reference intervals. Current interpretive data was last revised on 2023. Hct 31.9(L) 38.9 - 50.3 % [facility] Comment: Interpretive Data A reference range for this assay has not been established for patients with an unknown legal sex. Please refer to the laboratory test catalog for established sex-specific reference intervals. Current interpretive data was last revised on 2023. Plt 238 150 - 400 K/cumm [facility] MPV 12.0 9.1 - 12.3 fL [facility] RBC 3.05(L) 4.30 - 5.80 M/cumm [facility] Comment: Interpretive Data A reference range for this assay has not been established for patients with an unknown legal sex. Please refer to the laboratory test catalog for established sex-specific reference intervals. Current interpretive data was last revised on 2023. MCV 104.6(H) 81.3 - 96.4 fL [facility] MCH 37.7(H) 27.1 - 33.3 pg [facility] MCHC 36.1(H) 32.3 - 35.7 g/dL [facility] RDW CV 20.7(H) 11.1 - 14.9 % [facility] RDW SD 79.5(H) 35.7 - 48.1 fL [facility] NRBC abs 0.03(H) 0.00 - 0.01 K/cumm [facility] Blood 08/31/2023 9:15 PM CDT 08/31/2023 9:28 PM CDT us Anita Gillespie MD LAB BLOOD ORDERABLES Final Result [facility] One [facility] Department [place] [address] * (ABNORMAL) Basic metabolic panel (08/31/2023 9:15 PM CDT) Sodium 145 135 - 145 mmol/L [facility] Potassium, pl 3.8 3.3 - 4.9 mmol/L [facility] Chloride 110 97 - 110 mmol/L [facility] CO2 26 22 - 32 mmol/L [facility] Anion gap 9 2 - 15 mmol/L [facility] BUN 11 6 - 25 mg/dL [facility] Creatinine 0.71(L) 0.80 - 1.30 mg/dL [facility] Glucose 68(L) 70 - 199 mg/dL [facility] Comment: Interpretive Data Fasting glucose [...] 2022. Calcium 8.1(L) 8.5 - 10.3 mg/dL [facility] Blood 08/31/2023 9:15 PM CDT 08/31/2023 9:28 PM CDT us Anita Gillespie MD LAB BLOOD ORDERABLES Final Result [facility] One [facility] Department [place] [address] * (ABNORMAL) Protime-INR (08/31/2023 9:15 PM CDT) PT 16.2(H) 10.3 - 13.7 sec [facility] INR 1.42(H) 0.90 - 1.20 [facility] Comment: Interpretive data Oral anticoagulant therapeutic ranges: Venous thromboembolism prophylaxis or treatment: 2.0-3.0 CARDIOLOGY Standard range: 2.0-3.0 High-intensity range: 2.5-3.5 Refer to indication-specific guidelines for appropriate target ranges for prosthetic heart valve replacement. Current interpretive data was last revised on 2019. Blood 08/31/2023 9:15 PM CDT 08/31/2023 9:28 PM CDT us Anita Gillespie MD LAB BLOOD ORDERABLES Final Result Performing Organization Address City/[facility]/ZIP Co de Phone Number [facility] One [facility] Department [place] [address] * ECG 12 lead (08/31/2023 3:15 PM CDT) Pathologist [facility] Ventricular Rate EKG/Min 74 BPM [facility] Atrial Rate 74 BPM [facility] MD-Interval (MSEC) 188 ms [facility] QRS-Interval (MSEC) 82 ms [facility] QT-Interval (MSEC) 442 ms [facility] QTc 490 ms [facility] P [place] 37 degrees [facility] R [place] 11 degrees [facility] T [place] 23 degrees [facility] Diagnosis Normal sinus rhythm Possible Inferior infarct , age undetermined T wave abnormality, consider anterior ischemia Abnormal ECG When compared with ECG of 26-AUG-2023 21:48, (unconfirmed) Borderline criteria for 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 * (ABNORMAL) IgG (08/31/2023 2:37 AM CDT) Pathologist [facility] Immunoglobulin G <300.0(L) 700.0 - 1,600.0 mg/dL [facility] Blood 08/31/2023 2:37 AM CDT 08/31/2023 3:09 AM CDT us Anita Gillespie MD LAB BLOOD ORDERABLES Final Result Performing Organization Address City/[facility] Co de Phone Number [facility] Department [place] [address] [place] [address] * eGFR (08/31/2023 2:37 AM CDT) eGFR >90 90 - 130 mL/min/1. 73 m2 [facility] Comment: Interpretive Data Reference Interval Normal [...] ORDERABLES Fin al Result Performing Organization Address City/[facility] Co de Phone Number [facility] Department [place] [address] [place] [address] * (ABNORMAL) Differential, auto (08/31/2023 2:37 AM CDT) Neutrophil abs 4.7 1.7 - 6.5 K/cumm [facility] Imm gran abs 0.1 0.0 - 0.1 K/cumm [facility] Lymphocyte abs 4.1(H) 0.8 - 3.3 K/cumm [facility] Monocyte abs 0.7 0.2 - 0.8 K/cumm [facility] Eosinophil abs 0.7(H) 0.0 - 0.5 K/cumm [facility] Basophil abs 0.1 0.0 - 0.1 K/cumm [facility] Neutrophil pct 45.4 % [facility] Comment: Interpretive Data Percent cell count reference ranges are not reported, since discordance with absolute values may lead to misinterpretation of CBC data. Current Interpretive Data was last revised on 2018. Imm gran pct 0.5 % [facility] Comment: Interpretive Data Percent cell count reference ranges are not reported, since discordance with absolute values may lead to misinterpretation of CBC data. Current Interpretive Data was last revised on 2018. Lymphocyte pct 39.7 % [facility] Comment: Interpretive Data Percent cell count reference ranges are not reported, since discordance with absolute values may lead to misinterpretation of CBC data. Current Interpretive Data was last revised on 2018. Monocyte pct 7.1 % [facility] Comment: Interpretive Data Percent cell count reference ranges are not reported, since discordance with absolute values may lead to misinterpretation of CBC data. Current Interpretive Data was last revised on 2018. Eosinophil pct 6.4 % [facility] Comment: Interpretive Data Percent cell count reference ranges are not reported, since discordance with absolute values may lead to misinterpretation of CBC data. Current Interpretive Data was last revised on 2018. Basophil pct 0.9 % [facility] Comment: Interpretive Data Percent cell count reference ranges are not reported, since discordance with absolute values may lead to misinterpretation of CBC data. Current Interpretive Data was last revised on 2018. Blood 08/31/2023 2:37 AM CDT 08/31/2023 3:11 AM CDT Olena Null MD LAB BLOOD ORDERABLES Final R esult Performing Organization Address [facility] de Phone Number [facility] [place] [address] * Tacrolimus level trough (08/31/2023 2:37 AM CDT) Pathologist [facility] Tacrolimus trough 4.2 ng/mL [facility] Comment: Interpretive Data Testing performed by [...] BLOOD ORDERABLES Final Result Performing Organization Address [facility] de Phone Number [facility] [place] [address] * (ABNORMAL) Hepatic function panel (08/31/2023 2:37 AM CDT) Pathologist [facility] Bilirubin, total 4.1(H) 0.1 - 1.2 mg/dL [facility] Bilirubin, direct 2.6(H) 0.1 - 0.3 mg/dL [facility] Protein, pl 4.0(L) 6.5 - 8.5 g/dL [facility] Albumin 2.4(L) 3.5 - 5.0 g/dL [facility] Alk phos 191(H) 40 - 130 Units/L [facility] ALT 45 7 - 55 Units/L [facility] AST 83(H) 10 - 50 Units/L [facility] Comment:Hemolyzed; result ma y be falsely elevated Blood 08/31/2023 2:37 AM CDT 08/31/2023 3:09 AM CDT us Delia Ashby MD LAB BLOOD ORDERABLES Final Result [facility] One [facility] Department [place] [address] * (ABNORMAL) Basic metabolic panel (08/31/2023 2:37 AM CDT) Pathologist [facility] Sodium 144 135 - 145 mmol/L [facility] Potassium, pl 4.3 3.3 - 4.9 mmol/L [facility] Comment:Hemolyzed; Potassium value may be falsely elevated by as much as 0.3-0.5 mmol/L. Suggest redraw and reanalysis. Chloride 112(H) 97 - 110 mmol/L [facility] CO2 24 22 - 32 mmol/L [facility] Anion gap 8 2 - 15 mmol/L [facility] BUN 12 6 - 25 mg/dL [facility] Creatinine 0.71(L) 0.80 - 1.30 mg/dL [facility] Glucose 77 70 - 199 mg/dL [facility] Comment: Interpretive Data Fasting glucose [...] classification and Diagnosis of Diabetes Diabetes Care 2022; 46: S19-S40. Current interpretive data was last revised 2022. Calcium 8.7 8.5 - 10.3 mg/dL [facility] Blood 08/31/2023 2:37 AM CDT 08/31/2023 3:09 AM CDT Delia Ashby MD LAB BLOOD ORDERABLES Final Result Performing Organization Address City/[facility] [place] [address] * (ABNORMAL) Phosphorus (08/31/2023 2:37 AM CDT) Phosphorus, pl 5.4(H) 2.3 - 4.5 mg/dL [facility] Blood 08/31/2023 2:37 AM CDT 08/31/2023 3:09 AM CDT Delia Ashby MD LAB BLOOD ORDERABLES Final Result Performing Organization Address [facility] [place] [address] * Magnesium (08/31/2023 2:37 AM CDT) Pathologist [facility] Magnesium 1.6 1.4 - 2.5 mg/dL [facility] Blood 08/31/2023 2:37 AM CDT 08/31/2023 3:09 AM CDT Delia Ashby MD LAB BLOOD ORDERABLES Final Result Performing Organization Address [facility] Co de Phone Number [facility] [place] [address] * (ABNORMAL) CBC with auto differential (08/31/2023 2:37 AM CDT) WBC 10.3(H) 3.8 - 9.9 K/cumm [facility] Hgb 10.5(L) 13.0 - 17.5 g/dL [facility] Comment: Interpretive Data A reference range for this assay has not been established for patients with an unknown legal sex. Please refer to the laboratory test catalog for established sex-specific reference intervals. Current interpretive data was last revised on 2023. Hct 28.1(L) 38.9 - 50.3 % [facility] Comment: Interpretive Data A reference range for this assay has not been established for patients with an unknown legal sex. Please refer to the laboratory test catalog for established sex-specific reference intervals. Current interpretive data was last revised on 2023. Plt 272 150 - 400 K/cumm [facility] MPV 12.2 9.1 - 12.3 fL [facility] RBC 2.74(L) 4.30 - 5.80 M/cumm [facility] Comment: Interpretive Data A reference range for this assay has not been established for patients with an unknown legal sex. Please refer to the laboratory test catalog for established sex-specific reference intervals. Current interpretive data was last revised on 2023. MCV 102.6(H) 81.3 - 96.4 fL [facility] MCH 38.3(H) 27.1 - 33.3 pg [facility] MCHC 37.4(H) 32.3 - 35.7 g/dL [facility] RDW CV 20.8(H) 11.1 - 14.9 % [facility] RDW SD 74.0(H) 35.7 - 48.1 fL [facility] NRBC abs 0.00 0.00 - 0.01 K/cumm [facility] Blood 08/31/2023 2:37 AM CDT 08/31/2023 3:11 AM CDT us Delia Ashby MD LAB BLOOD ORDERABLES Final Result [facility] One [facility] Department [place] [address] * eGFR (08/30/2023 3:47 AM CDT) eGFR >90 90 - 130 mL/min/1. 73 m2 [facility] Comment: Interpretive Data Reference Interval Normal [...] MD LAB BLOOD ORDERABLES Fin al Result [facility] One [facility] Department of Laboratories [place], [place] [id number] * (ABNORMAL) Differential, auto (08/30/2023 3:47 AM CDT) Neutrophil abs 5.3 1.7 - 6.5 K/cumm [facility] Imm gran abs 0.1 0.0 - 0.1 K/cumm [facility] Lymphocyte abs 4.2(H) 0.8 - 3.3 K/cumm [facility] Monocyte abs 1.0(H) 0.2 - 0.8 K/cumm [facility] Eosinophil abs 0.6(H) 0.0 - 0.5 K/cumm [facility] Basophil abs 0.1 0.0 - 0.1 K/cumm [facility] Neutrophil pct 46.9 % [facility] Comment: Consistent with previous result Interpretive Data Percent cell count reference ranges are not reported, since discordance with absolute values may lead to misinterpretation of CBC data. Current Interpretive Data was last revised on 2018. Imm gran pct 0.7 % [facility] Comment: Interpretive Data Percent cell count reference ranges are not reported, since discordance with absolute values may lead to misinterpretation of CBC data. Current Interpretive Data was last revised on 2018. Lymphocyte pct 37.1 % [facility] Comment: Interpretive Data Percent cell count reference ranges are not reported, since discordance with absolute values may lead to misinterpretation of CBC data. Current Interpretive Data was last revised on 2018. Monocyte pct 9.0 % [facility] Comment: Interpretive Data Percent cell count reference ranges are not reported, since discordance with absolute values may lead to misinterpretation of CBC data. Current Interpretive Data was last revised on 2018. Eosinophil pct 5.7 % [facility] Comment: Interpretive Data Percent cell count reference ranges are not reported, since discordance with absolute values may lead to misinterpretation of CBC data. Current Interpretive Data was last revised on 2018. Basophil pct 0.6 % [facility] Comment: Interpretive Data Percent cell count reference ranges are not reported, since discordance with absolute values may lead to misinterpretation of CBC data. Current Interpretive Data was last revised on 2018. Blood 08/30/2023 3:47 AM CDT 08/30/2023 4:01 AM CDT us Olena Null MD LAB BLOOD ORDERABLES Final R esult [facility] Department [place] [address] * Tacrolimus level trough (08/30/2023 3:47 AM CDT) [facility] Tacrolimus trough 4.2 ng/mL [facility] Comment: Interpretive Data Testing [...] BLOOD ORDERABLES Final Result Performing Organization Address City/[facility]/ZIP Co de Phone Number [facility] [place] [address] [address] * (ABNORMAL) Hepatic function panel (08/30/2023 3:47 AM CDT) Bilirubin, total 4.7(H) 0.1 - 1.2 mg/dL [facility] Bilirubin, direct 3.6(H) 0.1 - 0.3 mg/dL [facility] Protein, pl 4.0(L) 6.5 - 8.5 g/dL [facility] Albumin 2.5(L) 3.5 - 5.0 g/dL [facility] Alk phos 205(H) 40 - 130 Units/L [facility] ALT 44 7 - 55 Units/L [facility] AST 73(H) 10 - 50 Units/L [facility] Blood 08/30/2023 3:47 AM CDT 08/30/2023 4:01 AM CDT Delia Ashby MD LAB BLOOD ORDERABLES Final Result Performing Organization Address City/[facility]/ZIP Co de Phone Number [id number] [place] [address] [place] [address] * (ABNORMAL) Basic metabolic panel (08/30/2023 3:47 AM CDT) Sodium 145 135 - 145 mmol/L [facility] Potassium, pl 4.2 3.3 - 4.9 mmol/L [facility] Chloride 115(H) 97 - 110 mmol/L [facility] CO2 25 22 - 32 mmol/L [facility] Anion gap 5 2 - 15 mmol/L [facility] BUN 11 6 - 25 mg/dL [facility] Creatinine 0.79(L) 0.80 - 1.30 mg/dL [facility] Glucose 83 70 - 199 mg/dL [facility] Comment: Interpretive Data Fasting glucose [...] 2022. Calcium 8.3(L) 8.5 - 10.3 mg/dL [facility] Blood 08/30/2023 3:47 AM CDT 08/30/2023 4:01 AM CDT Delia Ashby MD LAB BLOOD ORDERABLES Final Result [facility] Department [place] [address] * Phosphorus (08/30/2023 3:47 AM CDT) Phosphorus, pl 3.4 2.3 - 4.5 mg/dL [facility] Blood 08/30/2023 3:47 AM CDT 08/30/2023 4:01 AM CDT Delia Ashby MD LAB BLOOD ORDERABLES Final Result [facility] Department [place] [address] * Magnesium (08/30/2023 3:47 AM CDT) Pathologist [facility] Magnesium 1.6 1.4 - 2.5 mg/dL [facility] Blood 08/30/2023 3:47 AM CDT 08/30/2023 4:01 AM CDT Delia Ashby MD LAB BLOOD ORDERABLES Final Result [facility] [place] [address] * (ABNORMAL) CBC with auto differential (08/30/2023 3:47 AM CDT) Pathologist [facility] WBC 11.3(H) 3.8 - 9.9 K/cumm [facility] Hgb 11.1(L) 13.0 - 17.5 g/dL [facility] Comment: Interpretive Data A reference range for this assay has not been established for patients with an unknown legal sex. Please refer to the laboratory test catalog for established sex-specific reference intervals. Current interpretive data was last revised on 2023. Hct 30.5(L) 38.9 - 50.3 % [facility] Comment: Interpretive Data A reference range for this assay has not been established for patients with an unknown legal sex. Please refer to the laboratory test catalog for established sex-specific reference intervals. Current interpretive data was last revised on 2023. Plt 269 150 - 400 K/cumm [facility] MPV 12.3 9.1 - 12.3 fL [facility] RBC 3.00(L) 4.30 - 5.80 M/cumm [facility] Comment: Interpretive Data A reference range for this assay has not been established for patients with an unknown legal sex. Please refer to the laboratory test catalog for established sex-specific reference intervals. Current interpretive data was last revised on 2023. MCV 101.7(H) 81.3 - 96.4 fL [facility] MCH 37.0(H) 27.1 - 33.3 pg [facility] MCHC 36.4(H) 32.3 - 35.7 g/dL [facility] RDW CV 20.6(H) 11.1 - 14.9 % [facility] RDW SD 76.2(H) 35.7 - 48.1 fL [facility] NRBC abs 0.00 0.00 - 0.01 K/cumm [facility] Blood 08/30/2023 3:47 AM CDT 08/30/2023 4:01 AM CDT Delia Ashby MD LAB BLOOD ORDERABLES Final Result Performing Organization Address [facility] de Phone Number [facility] [place] [address] [place] [address] * (ABNORMAL) Protime-INR (08/30/2023 3:47 AM CDT) PT 15.7(H) 10.3 - 13.7 sec [facility] INR 1.38(H) 0.90 - 1.20 [facility] Comment: Interpretive data Oral anticoagulant therapeutic ranges: Venous thromboembolism prophylaxis or treatment: 2.0-3.0 CARDIOLOGY Standard range: 2.0-3.0 High-intensity range: 2.5-3.5 Refer to indication-specific guidelines for appropriate target ranges for prosthetic heart valve replacement. Current interpretive data was last revised on 2019. Blood 08/30/2023 3:47 AM CDT 08/30/2023 4:15 AM CDT Delia Ashby MD LAB BLOOD ORDERABLES Final Result Performing Organization Address [facility] Co de Phone Number [facility] [place] [address] * aPTT (08/30/2023 3:47 AM CDT) aPTT 33 28 - 38 sec [facility] Comment: Interpretive Data Heparin therapeutic range: 66.0 - 100.0 seconds. Range based on correlation with therapeutic heparin activity range of 0.3 - 0.7 Units/mL. Current interpretive data was last revised on 2023. Blood 08/30/2023 3:47 AM CDT 08/30/2023 4:15 AM CDT Delia Ashby MD LAB BLOOD ORDERABLES Final Result Performing Organization Address [facility] de Phone Number [facility] Department [place] [address] * (ABNORMAL) Lactate dehydrogenase (LD) (08/30/2023 3:47 AM CDT) Lactate dehydrogenase (LDH) 468(H) 100 - 250 Units/L [facility] Blood 08/30/2023 3:47 AM CDT 08/30/2023 4:01 AM CDT Narrative [facility] - 08/30/2023 4:33 AM CDT Wednesday and only. Morning draw. Delia Ashby MD LAB BLOOD ORDERABLES Final Result Performing Organization Address [facility] de Phone Number [facility] Department [place] [address] * Uric acid (08/30/2023 3:47 AM CDT) Uric acid 3.4 3.0 - 8.0 mg/dL [facility] Blood 08/30/2023 3:47 AM CDT 08/30/2023 4:01 AM CDT Narrative [facility] - 08/30/2023 4:33 AM CDT Wednesday and only. Morning draw. . Delia Ashby MD LAB BLOOD ORDERABLES Final Result Performing Organization Address [facility] [place] [address] * Type and screen (08/30/2023 3:47 AM CDT) Pathologist [facility] ABO Rh A Positive Carol, indirect Negative [facility] Comment:Patient has previous antibody history Blood 08/30/2023 3:47 AM CDT 08/30/2023 4:20 AM CDT Narrative [facility] - 08/30/2023 5:54 AM CDT Has the patient had Daratumumab or Isatuximab in the past 6 months?->Unknown us Delia Ashby MD LAB BLOOD BANK TEST [place] [address] * (ABNORMAL) Cytomegalovirus (CMV) DNA PCR, quantitative Blood (08/30/2023 3:47 AM CDT) [facility] CMV DNA Detected( A) [facility] Comment: Interpretive Data: The quantifiable range of this assay is 34 IUnits/mL to 10,000,000 IUnits/mL (1.53 log IUnits/mL to 7.0 log IUnits/mL). Testing was performed by the NIA 6800 CMV Test ([employer] Testing performed at [facility]. Current interpretive data was last revised on 2021. CMV DNA IU/mL 185 IUnits/mL [facility] CMV DNA log IU/mL 2.27 log IUnits/mL [facility] Blood 08/30/2023 3:47 AM CDT 08/30/2023 4:59 AM CDT us Karena Verdugo MD LAB MICROBIOLOGY - GENER [place] [address] * eGFR (08/29/2023 3:10 AM CDT) Pathologist [facility] eGFR >90 90 - 130 mL/min/1. 73 [...] ORDERABLES Fin al Result [facility] One [facility] Department [place] [address] * (ABNORMAL) Differential, auto (08/29/2023 3:10 AM CDT) Pathologist [facility] Neutrophil abs 4.1 1.7 - 6.5 K/cumm [facility] Imm gran abs 0.1 0.0 - 0.1 K/cumm [facility] Lymphocyte abs 4.7(H) 0.8 - 3.3 K/cumm [facility] Monocyte abs 1.5(H) 0.2 - 0.8 K/cumm [facility] Eosinophil abs 0.8(H) 0.0 - 0.5 K/cumm [facility] Basophil abs 0.1 0.0 - 0.1 K/cumm [facility] Neutrophil pct 36.6 % [facility] Comment: Confirmed by smear review Interpretive Data Percent cell count reference ranges are not reported, since discordance with absolute values may lead to misinterpretation of CBC data. Current Interpretive Data was last revised on 2018. Imm gran pct 0.6 % [facility] Comment: Interpretive Data Percent cell count reference ranges are not reported, since discordance with absolute values may lead to misinterpretation of CBC data. Current Interpretive Data was last revised on 2018. Lymphocyte pct 41.8 % [facility] Comment: Interpretive Data Percent cell count reference ranges are not reported, since discordance with absolute values may lead to misinterpretation of CBC data. Current Interpretive Data was last revised on 2018. Monocyte pct 12.9 % [facility] Comment: Interpretive Data Percent cell count reference ranges are not reported, since discordance with absolute values may lead to misinterpretation of CBC data. Current Interpretive Data was last revised on 2018. Eosinophil pct 7.4 % [facility] Comment: Interpretive Data Percent cell count reference ranges are not reported, since discordance with absolute values may lead to misinterpretation of CBC data. Current Interpretive Data was last revised on 2018. Basophil pct 0.7 % [facility] Comment: Interpretive Data Percent cell count reference ranges are not reported, since discordance with absolute values may lead to misinterpretation of CBC data. Current Interpretive Data was last revised on 2018. Blood 08/29/2023 3:10 AM CDT 08/29/2023 3:47 AM CDT Olena Null MD LAB BLOOD ORDERABLES Final R esult [facility] One [facility] [place] [address] * Tacrolimus level trough (08/29/2023 3:10 AM CDT) Tacrolimus trough 4.2 ng/mL [facility] Comment: Interpretive Data Testing performed by [...] BLOOD ORDERABLES Final Result Performing Organization Address [facility] Co de Phone Number [facility] One [facility] Department [place] [address] * (ABNORMAL) Hepatic function panel (08/29/2023 3:10 AM CDT) Bilirubin, total 4.5(H) 0.1 - 1.2 mg/dL [facility] Bilirubin, direct 3.5(H) 0.1 - 0.3 mg/dL [facility] Protein, pl 4.0(L) 6.5 - 8.5 g/dL [facility] Albumin 2.5(L) 3.5 - 5.0 g/dL [facility] Alk phos 216(H) 40 - 130 Units/L [facility] ALT 47 7 - 55 Units/L [facility] AST 71(H) 10 - 50 Units/L [facility] Blood 08/29/2023 3:1 0 AM CDT 08/29/2023 3:46 AM CDT Delia Ashby MD LAB BLOOD ORDERABLES Final Result [facility] Department [place] [address] * (ABNORMAL) Basic metabolic panel (08/29/2023 3:10 AM CDT) Pathologist [facility] Sodium 144 135 - 145 mmol/L [facility] Potassium, pl 3.8 3.3 - 4.9 mmol/L [facility] Chloride 112(H) 97 - 110 mmol/L [facility] CO2 25 22 - 32 mmol/L [facility] Anion gap 7 2 - 15 mmol/L [facility] BUN 10 6 - 25 mg/dL [facility] Creatinine 0.72(L) 0.80 - 1.30 mg/dL [facility] Glucose 77 70 - 199 mg/dL [facility] Comment: Interpretive Data Fasting glucose [...] 2022. Calcium 7.9(L) 8.5 - 10.3 mg/dL [facility] Blood 08/29/2023 3:10 AM CDT 08/29/2023 3:46 AM CDT Delia Ashby MD LAB BLOOD ORDERABLES Final Result [facility] One [facility] Department [place] [address] * Phosphorus (08/29/2023 3:10 AM CDT) Pathologist [facility] Phosphorus, pl 3.3 2.3 - 4.5 mg/dL [facility] Blood 08/29/2023 3:10 AM CDT 08/29/2023 3:46 AM CDT Delia Ashby MD LAB BLOOD ORDERABLES Final Result Performing Organization Address City/[facility] Co de Phone Number [facility] [place] [address] * Magnesium (08/29/2023 3:10 AM CDT) Pathologist [facility] Magnesium 1.6 1.4 - 2.5 mg/dL [facility] Blood 08/29/2023 3:10 AM CDT 08/29/2023 3:46 AM CDT Delia Ashby MD LAB BLOOD ORDERABLES Final Result Performing Organization Address [facility] de Phone Number [facility] [place] [address] * (ABNORMAL) CBC with auto differential (08/29/2023 3:10 AM CDT) [facility] WBC 11.3(H) 3.8 - 9.9 K/cumm [facility] Hgb 10.9(L) 13.0 - 17.5 g/dL [facility] Comment: Interpretive Data A reference range for this assay has not been established for patients with an unknown legal sex. Please refer to the laboratory test catalog for established sex-specific reference intervals. Current interpretive data was last revised on 2023. Hct 29.9(L) 38.9 - 50.3 % [facility] Comment: Interpretive Data A reference range for this assay has not been established for patients with an unknown legal sex. Please refer to the laboratory test catalog for established sex-specific reference intervals. Current interpretive data was last revised on 2023. Plt 304 150 - 400 K/cumm [facility] MPV 12.2 9.1 - 12.3 fL [facility] RBC 2.94(L) 4.30 - 5.80 M/cumm [facility] Comment: Interpretive Data A reference range for this assay has not been established for patients with an unknown legal sex. Please refer to the laboratory test catalog for established sex-specific reference intervals. Current interpretive data was last revised on 2023. MCV 101.7(H) 81.3 - 96.4 fL [facility] MCH 37.1(H) 27.1 - 33.3 pg [facility] MCHC 36.5(H) 32.3 - 35.7 g/dL [facility] RDW CV 20.0(H) 11.1 - 14.9 % [facility] RDW SD 73.0(H) 35.7 - 48.1 fL [facility] NRBC abs 0.02(H) 0.00 - 0.01 K/cumm [facility] Blood 08/29/2023 3:10 AM CDT 08/29/2023 3:47 AM CDT us Delia Ashby MD LAB BLOOD ORDERABLES Final Result [facility] One [facility] Department [place] [address] * eGFR (08/28/2023 3:00 AM CDT) Pathologist [facility] eGFR >90 90 - 130 mL/min/1. 73 m2 [facility] Comment: Interpretive Data Reference Interval Normal [...] CDT 08/28/2023 3:08 AM CDT us Karena eVrdugo MD LAB BLOOD ORDERABLES Fin al Result [facility] One [facility] Department [place] [address] * (ABNORMAL) Differential, auto (08/28/2023 3:00 AM CDT) Neutrophil abs 3.3 1.7 - 6.5 K/cumm [facility] Imm gran abs 0.1 0.0 - 0.1 K/cumm [facility] Lymphocyte abs 3.9(H) 0.8 - 3.3 K/cumm [facility] Monocyte abs 1.6(H) 0.2 - 0.8 K/cumm [facility] Eosinophil abs 0.9(H) 0.0 - 0.5 K/cumm [facility] Basophil abs 0.1 0.0 - 0.1 K/cumm [facility] Neutrophil pct 33.5 % [facility] Comment: Interpretive Data Percent cell count reference ranges are not reported, since discordance with absolute values may lead to misinterpretation of CBC data. Current Interpretive Data was last revised on 2018. Imm gran pct 0.7 % [facility] Comment: Interpretive Data Percent cell [...] LAB BLOOD ORDERABLES Final R esult [facility] Department [place] [address] * Tacrolimus level trough (08/28/2023 3:00 AM [...] BLOOD ORDERABLES Final Result Performing Organization Address [facility]/ZIP Co de Phone Number [facility] [place] [address] * (ABNORMAL) Hepatic function panel (08/28/2023 3:00 AM CDT) Bilirubin, total 4.8(H) 0.1 - 1.2 mg/dL [facility] Bilirubin, direct 3.9(H) 0.1 - 0.3 mg/dL [facility] Protein, pl 4.2(L) 6.5 - 8.5 g/dL [facility] Albumin 2.5(L) 3.5 - 5.0 g/dL [facility] Alk phos 227(H) 40 - 130 Units/L [facility] ALT 51 7 - 55 Units/L [facility] AST 78(H) 10 - 50 Units/L [facility] Blood 08/28/2023 3:00 AM CDT 08/28/2023 3:08 AM CDT Delia Ashby MD LAB BLOOD ORDERABLES Final Result Performing Organization Address [facility] Co de Phone Number [facility] Department [place] [address] * (ABNORMAL) Basic metabolic panel (08/28/2023 3:00 AM CDT) Sodium 141 135 - 145 mmol/L [facility] Potassium, pl 3.5 3.3 - 4.9 mmol/L [facility] Chloride 110 97 - 110 mmol/L [facility] CO2 24 22 - 32 mmol/L [facility] Anion gap 7 2 - 15 mmol/L [facility] BUN 9 6 - 25 mg/dL [facility] Creatinine 0.72(L) 0.80 - 1.30 mg/dL [facility] Glucose 85 70 - 199 mg/dL [facility] Comment: Interpretive Data Fasting glucose [...] 2022. Calcium 6.9(L) 8.5 - 10.3 mg/dL [facility] Blood 08/28/2023 3:00 AM CDT 08/28/2023 3:08 AM CDT Delia Ashby MD LAB BLOOD ORDERABLES Final Result Performing Organization Address City/[facility]/ZIP Co de Phone Number [facility] Department [place] [address] * (ABNORMAL) Phosphorus (08/28/2023 3:00 AM CDT) Phosphorus, pl 2.1(L) 2.3 - 4.5 mg/dL [facility] Blood 08/28/2023 3:00 AM CDT 08/28/2023 3:08 AM CDT Delia Ashby MD LAB BLOOD ORDERABLES Final Result [facility] Department [place] [address] [address] * Magnesium (08/28/2023 3:00 AM CDT) Magnesium 2.0 1.4 - 2.5 mg/dL [facility] Blood 08/28/2023 3:00 AM CDT 08/28/2023 3:08 AM CDT us Delia Ashby MD LAB BLOOD ORDERABLES Final Result [facility] One [facility] Department [place] [address] * (ABNORMAL) CBC with auto differential (08/28/2023 3:00 AM CDT) WBC 9.9 3.8 - 9.9 K/cumm [facility] Hgb 10.2(L) 13.0 - 17.5 g/dL [facility] Comment: Interpretive Data A reference range for this assay has not been established for patients with an unknown legal sex. Please refer to the laboratory test catalog for established sex-specific reference intervals. Current interpretive data was last revised on 2023. Hct 28.0(L) 38.9 - 50.3 % [facility] Comment: Interpretive Data A reference range for this assay has not been established for patients with an unknown legal sex. Please refer to the laboratory test catalog for established sex-specific reference intervals. Current interpretive data was last revised on 2023. Plt 283 150 - 400 K/cumm [facility] MPV 12.0 9.1 - 12.3 fL [facility] RBC 2.74(L) 4.30 - 5.80 M/cumm [facility] Comment: Interpretive Data A reference range for this assay has not been established for patients with an unknown legal sex. Please refer to the laboratory test catalog for established sex-specific reference intervals. Current interpretive data was last revised on 2023. MCV 102.2(H) 81.3 - 96.4 fL [facility] MCH 37.2(H) 27.1 - 33.3 pg [facility] MCHC 36.4(H) 32.3 - 35.7 g/dL [facility] RDW CV 19.5(H) 11.1 - 14.9 % [facility] RDW SD 70.5(H) 35.7 - 48.1 fL [facility] NRBC abs 0.03(H) 0.00 - 0.01 K/cumm [facility] Blood 08/28/2023 3:00 AM CDT 08/28/2023 3:08 AM CDT us Delia Ashby MD LAB BLOOD ORDERABLES Final Result [facility] One [facility] Department [place] [address] * MD ABDOM PARACENTESIS DX/THER W/IMAGING GUIDANCE (08/27/2023 2:24 PM CDT) Narrative Marylou Goodson MD - 08/27/2023 2:24 PM CDT Nick Martínez MD ? 08/27/2023 ??2:25 PM Paracentesis Date/Time: 08/27/2023 2:24 PM Performed by: Fabi Son MD Authorized by: Marylou Goodson MD ?? [place] Protocol: ??RN Notified of Procedure: yes ?Informed [...] PM CDT) Leukemia/Lymph melissa Result See comment [facility] Comment:Credited, duplicate test. Lymph node 08/27/2023 1:59 PM CDT 09/03/2023 3:10 PM CDT Narrative [facility] - 09/03/2023 3:11 PM CDT Retro Peritoneal Lymph Node-FNB Charles Damian MD LAB PATHOLOGY ORDERABLES Fi nal Result Performing Organization Address [facility]/ZIP Co de Phone Number [facility] Department [place] [address] * Flow Leukemia/Lymphoma Lymph node (08/27/2023 1:48 PM CDT) Frazier Stain Test Completed [facility] Leukemia/Lymp josé manuel Result See separate Surgical Pathology report. [facility] Lymph node 08/27/2023 1:48 PM CDT 08/27/2023 5:51 PM CDT Anita Gillespie MD LAB PATHOLOGY ORDERABLES F inal Result Performing Organization Address [facility] Co de Phone Number [facility] Department [place] [address] * Surgical pathology (08/27/2023 1:48 PM CDT) Tissue (Lymph node, needle biopsy) 08/27/2023 1:48 PM CDT Tissue (Liver, Biopsy, Needle Medical) 08/27/2023 1:55 PM CDT Narrative PATHOLOGY [facility] - 09/03/2023 10:14 PM CDT EPIC results best viewed via link to PDF [facility] Yulisa Garcia Laboratory [place] [address] Note to Patients: This report may contain [...] Gender: ??M : ??1995 (Age: 28) Address: ??[address] [place] [address] ??[id number] Hospital #: ??[id number] Taken:08/27/2023 Received:08/27/2023 Reported: 09/03/2023 Patient Type: [facility] Inpatient ?? Service: Oncology Location: [facility] ??[address] Physician(s): ??Charles Damian M.D. Rafia Bautista M.D. Anita iGllespie M.D. Diagnosis: A. ??Lymph node, retroperitoneal, endoscopic [...] 4) ? - No evidence to support [id number] deficiency by PAS-D ? - No definitive [...] infiltrates, among other findings. The previous biopsy ([id number]), which was reviewed in comparison with the [...] in periportal hepatocytes and apparent loss of [place] bile ducts in approximately 4 of 8 [...] focus of staining; repeat immunostain is negative. AJKOB RASHAUN on block A1 is also negative. [...] flow cytometry specimen was examined for internal associate quality engineer purposes. Flow cytometry was performed using antibodies to the following cellular antigens: CD45, CD34, CD19, CD20, [place], Lambda, CD10, CD5, CD200, CD38, CD2, CD3, CD4, CD7, CD8, CD56, TCR-GD. Total antigens analyzed: 17 Flow cytometry and cytospin reviewed by Dr. Ricks.[facility] Microscopic examination substantiates the above cited diagnosis. Special stains and single antibody immunostain procedures were performed with appropriately staining controls. Reference: Mayito Martinez [facility], WAY[place]*; Francisco Hernandez MD, PhD*; Sara Campo MD, PhD? ? ? ; Marco Villeda MD? ? ? ; Fern Sharp MD? ? ?; [place], ? ? tima QUINTANILLA?; Zahida Quinteros MD? ? ?; Seyd Arambula MD*. 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 The [place] Journal of Surgical Pathology 44(5):p [phone], March [...] ??Labeled A1 and A2. Jar 0. ?? elsw/08/27/2023 17:17 PA(s): Kristine Ley By this signature, [...] Surgical Pathology and Flow Cytometry Departments at [facility] as part of an ongoing quality assurance project manager program and in compliance with federally mandated [...] Surgical Pathology and Flow Cytometry Departments of [facility]. ??It has not been cleared or approved by the U. S. Food and Drug Administration. IMAGES AND SCANNED DOCUMENTS, IF INCLUDED, ONLY VIEWABLE IN PDF VERSION OF REPORT us Charles Damian MD LAB PATHOLOGY ORDERABLES Fi nal Result PATHOLOGY [facility] 3rd Floor [place], [place] [phone] * US Vein Duplex Upper Extremity Left Limited, Unilateral (08/27/2023 1:24 PM CDT) Anatomical Region Laterality Modality Vascular Left Ultrasound 08/27/2023 1:53 PM CDT Narrative 08/28/2023 7:13 AM CDT [facility] - Department of Vascular Surgery, Vascular Laboratory [address] [place] [id number] Upper Extremity Venous Ultrasound Report Patient Name: BEKA LARES J : 1995 (28y 6m) Study Date: 08/27/2023 1:53:38 PM Gender: M Tech: Location: [id number] Ref.Provider: KARENA MAK Quality: Adequate Order Provider: KARENA MAK Procedures: Vascular Report: Venous Duplex imaging was performed in the left upper extremity. The internal jugular, subclavian and axillary veins were evaluated for patency, spontaneity and phasicity with Doppler, compression and augmentation maneuvers. The brachial, basilic and cephalic veins were also evaluated with compression maneuvers. Indications: edema. Findings: Performing Slag Expander: Shannan Oviedo RVT. Left: Venous Doppler signals [...] above. Electronically Signed By: Severino Pickett MD [facility] 2023-08-28 07:13:33 CDT CC: CC: Procedure Note Severino Pickett MD - 08/28/2023 [facility] - Department of Vascular Surgery,Vascular Laboratory [address] [place] [address] Upper Extremity Venous Ultrasound Report Patient Name: BEKA LARES JPatient ID: [id number] : 1995 (28y 6m)Study Date: 08/27/2023 1:53:38 PM Gender: MAccession #: [id number] Tech: DRLocation: [id number] Ref.Provider: KARENA MAKQuality: Adequate Order Provider: KARENA MAK Procedures: Vascular Report: Venous Duplex imaging was performed in the left upper extremity. Theinternal jugular, subclavian and axillary veins were evaluated for patency, spontaneity andphasicity with Doppler, compression and augmentation maneuvers. The brachial, basilic andcephalic veins were also evaluated with compression maneuvers. Indications: edema. Findings: Performing Slag Expander: Shannan Oviedo RVT. Left: Venous Doppler signals [...] above. Electronically Signed By: Severino Pickett MD [facility] 2023-08-28 07:13:33 CDT CC: CC: Karena Verdugo MD IMG US PROCEDURES Final Result * EUS (08/27/2023 1:02 PM CDT) Anatomical Region Laterality Modality Other Narrative Procedure Note Charles Damian MD - 08/27/2023 1:02 PM CDT [facility] Patient Name: Beka Lares Procedure Date: 08/27/2023 1:02 PM Date of : 1995 Admit Type: Inpatient Age: 28 Gender: Male Attending MD: Charles Damian M.D. Room: [facility] ENDOSCOPY ROOM 2 Note Status: [...] and informed consent was obtained.The GIF [id number] endoscope was introduced through themouth, and advanced to the second part of duodenum The Olympus curved linear array therapeuticendosonoscope [id number] was introduced through the mouth, and advanced [...] Quintero RN in the GI office at [phone] for your final results in 7 days. Attending Participation: I personally performed the entire procedure. Electronically Signed By: Charles Damain M.D. Charles Damian M.D. 08/27/2023 2:42:07 PM . Number of Addenda: 0 Note Initiated On: 08/27/2023 1:02 PM Recognized by the [employer] for promoting quality in endoscopy us Charles Damian MD ENDOSCOPY PROCEDURES Final Result * eGFR (08/27/2023 3:31 AM CDT) eGFR >90 90 - 130 mL/min/1. 73 m[address] [facility] Comment: Interpretive Data Reference Interval Normal [...] MD LAB BLOOD ORDERABLES Fin al Result [facility] One [facility] Department [place] [address] * (ABNORMAL) Differential, auto (08/27/2023 3:31 AM CDT) Pathologist [facility] Neutrophil abs 5.4 1.7 - 6.5 K/cumm [facility] Imm gran abs 0.1 0.0 - 0.1 K/cumm [facility] Lymphocyte abs 4.2(H) 0.8 - 3.3 K/cumm [facility] Monocyte abs 1.9(H) 0.2 - 0.8 K/cumm [facility] Eosinophil abs 0.8(H) 0.0 - 0.5 K/cumm [facility] Basophil abs 0.1 0.0 - 0.1 K/cumm [facility] Neutrophil pct 42.9 % [facility] Comment: Consistent with previous result Interpretive Data Percent cell count reference ranges are not reported, since discordance with absolute values may lead to misinterpretation of CBC data. Current Interpretive Data was last revised on 2018. Imm gran pct 0.9 % [facility] Comment: Interpretive Data Percent cell count reference ranges are not reported, since discordance with absolute values may lead to misinterpretation of CBC data. Current Interpretive Data was last revised on 2018. Lymphocyte pct 33.7 % [facility] Comment: Interpretive Data Percent cell [...] 3:31 AM CDT 08/27/2023 4:06 AM CDT Olena Null MD LAB BLOOD ORDERABLES Final R esult [facility] One [facility] Department [place] [address] * Tacrolimus level trough (08/27/2023 3:31 AM CDT) [facility] Tacrolimus trough 3.7 ng/mL [facility] Comment: [...] BLOOD ORDERABLES Final Result Performing Organization Address City/[facility]/ZIP Co de Phone Number [facility] [place] [address] * (ABNORMAL) Hepatic function panel (08/27/2023 3:31 AM CDT) Bilirubin, total 5.5(H) 0.1 - 1.2 mg/dL [facility] Bilirubin, direct 4.4(H) 0.1 - 0.3 mg/dL [facility] Protein, pl 4.3(L) 6.5 - 8.5 g/dL [facility] Albumin 2.7(L) 3.5 - 5.0 g/dL [facility] Alk phos 229(H) 40 - 130 Units/L [facility] ALT 53 7 - 55 Units/L [facility] AST 82(H) 10 - 50 Units/L [facility] Blood 08/27/2023 3:31 AM CDT 08/27/2023 4:05 AM CDT Delia Ashby MD LAB BLOOD ORDERABLES Final Result Performing Organization Address [facility] de Phone Number [facility] Department [place] [address] * (ABNORMAL) Basic metabolic panel (08/27/2023 3:31 AM CDT) Sodium 140 135 - 145 mmol/L [facility] Potassium, pl 3.8 3.3 - 4.9 mmol/L [facility] Chloride 109 97 - 110 mmol/L [facility] CO2 23 22 - 32 mmol/L [facility] Anion gap 8 2 - 15 mmol/L [facility] BUN 10 6 - 25 mg/dL [facility] Creatinine 0.76(L) 0.80 - 1.30 mg/dL [facility] Glucose 99 70 - 199 mg/dL [facility] Comment: Interpretive Data Fasting glucose [...] 2022. Calcium 6.9(L) 8.5 - 10.3 mg/dL [facility] Blood 08/27/2023 3:31 AM CDT 08/27/2023 4:05 AM CDT Delia Ashby MD LAB BLOOD ORDERABLES Final Result Performing Organization Address [facility] de Phone Number [facility] Department [place] [employer] [place] [address] * Phosphorus (08/27/2023 3:31 AM CDT) Phosphorus, pl 2.3 2.3 - 4.5 mg/dL [facility] Blood 08/27/2023 3:31 AM CDT 08/27/2023 4:05 AM CDT Delia Ashby MD LAB BLOOD ORDERABLES Final Result Performing Organization Address [facility] de Phone Number [facility] Department [place] [employer] [place] [address] * Magnesium (08/27/2023 3:31 AM CDT) Magnesium 1.4 1.4 - 2.5 mg/dL [facility] Blood 08/27/2023 3:31 AM CDT 08/27/2023 4:05 AM CDT Delia Ashby MD LAB BLOOD ORDERABLES Final Result [facility] One [facility] Department [place] [address] * (ABNORMAL) CBC with auto differential (08/27/2023 3:31 AM CDT) [facility] WBC 12.5(H) 3.8 - 9.9 K/cumm [facility] Hgb 10.8(L) 13.0 - 17.5 g/dL [facility] Comment: Interpretive Data A reference range for this assay has not been established for patients with an unknown legal sex. Please refer to the laboratory test catalog for established sex-specific reference intervals. Current interpretive data was last revised on 2023. Hct 29.3(L) 38.9 - 50.3 % [facility] Comment: Interpretive Data A reference range for this assay has not been established for patients with an unknown legal sex. Please refer to the laboratory test catalog for established sex-specific reference intervals. Current interpretive data was last revised on 2023. Plt 290 150 - 400 K/cumm [facility] MPV 12.0 9.1 - 12.3 fL [facility] RBC 2.89(L) 4.30 - 5.80 M/cumm [facility] Comment: Interpretive Data A reference range for this assay has not been established for patients with an unknown legal sex. Please refer to the laboratory test catalog for established sex-specific reference intervals. Current interpretive data was last revised on 2023. MCV 101.4(H) 81.3 - 96.4 fL [facility] MCH 37.4(H) 27.1 - 33.3 pg [facility] MCHC 36.9(H) 32.3 - 35.7 g/dL [facility] RDW CV 18.7(H) 11.1 - 14.9 % [facility] RDW SD 68.2(H) 35.7 - 48.1 fL [facility] NRBC abs 0.03(H) 0.00 - 0.01 K/cumm [facility] Blood 08/27/2023 3:31 AM CDT 08/27/2023 4:06 AM CDT Delia Ashby MD LAB BLOOD ORDERABLES Final Result Performing Organization Address [facility] Co de Phone Number [facility] Department [place] [address] * Troponin I high-sensitivity (08/26/2023 10:31 PM CDT) Trop I hs 8 <=35 ng/L [facility] Comment: Interpretive Data For further hscTnI resources including the diagnostic algorithm and an aid in interpretation, copy and paste this link: https://bjhlab.testcatalog.org/show/[email or web address] Current Interpretive Data last revised 2020. Blood 08/26/2023 10:3 1 PM CDT 08/26/2023 11:41 PM CDT Maryam Gonzalez MD LAB BLOOD ORDERABLES F inal Result Performing Organization Address [facility] de Phone Number [facility] [place] [address] * MRI Abdomen MRCP W WO Contrast [...] pneumonia. Diffuse T1 marrow hypointensity. Procedure Note MiguelHenri dunn MD - 08/26/2023 EXAMINATION: 1. MAGNETIC RESONANCE [...] by: Henri Rivera M.D. Karena Verdugo MD IM MRI PROCEDURES Final Result * Blood culture Blood (08/26/2023 3:23 AM CDT) Report Final Report: No growth [facility] Blood 08/26/2023 3:23 AM CDT 08/26/2023 4:18 AM CDT Narrative [facility] - 08/30/2023 7:00 AM CDT Collection->Peripheral 1. [...] organism identification may be performed using the [employer] Gram-Positive Blood Culture Assay. This assay detects microbial DNA in positive blood culture broth via hybridization of target DNA to capture oligonucleotides on a microarray. This assay has been cleared by the [place] Food and Drug Administration and its performance characteristics have been verified by the [facility] Microbiology Laboratory. 5. ?For questions about this culture, contact the Microbiology Laboratory at [phone]. Interpretive data was last revised on 2020. Karena Verdugo MD LAB MICROBIOLOGY - GENER AL ORDERABLES Final Result Performing Organization Address [facility] Co de Phone Number [facility] One [facility] Department [place] [address] * Blood culture Blood (08/26/2023 3:14 AM CDT) Report Final Report: No growth [facility] Blood 08/26/2023 3:14 AM CDT 08/26/2023 4:18 AM CDT Narrative [facility] - 08/30/2023 7:00 AM CDT Collection->Peripheral [...] organism identification may be performed using the [employer] Gram-Positive Blood Culture Assay. This assay detects microbial DNA in positive blood culture broth via hybridization of target DNA to capture oligonucleotides on a microarray. This assay has been cleared by the [place] Food and Drug Administration and its performance characteristics have been verified by the [facility] Microbiology Laboratory. 5. ?For questions about this culture, contact the Microbiology Laboratory at [phone]. Interpretive data was last revised on 2020. Karena Verdugo MD LAB MICROBIOLOGY - GENER AL ORDERABLES Final Result [facility] Department [place] [address] * eGFR (08/26/2023 3:04 AM CDT) [facility] eGFR >90 90 - 130 mL/min/1. 73 m2 [facility] Comment: Interpretive Data Reference Interval Normal [...] AM CDT 08/26/2023 3:40 AM CDT us Karena Verdugo MD LAB BLOOD ORDERABLES Fin al Result [facility] Department [place] [address] * (ABNORMAL) Differential, auto (08/26/2023 3:04 AM CDT) Neutrophil abs 5.5 1.7 - 6.5 K/cumm [facility] Imm gran abs 0.1 0.0 - 0.1 K/cumm [facility] Lymphocyte abs 4.4(H) 0.8 - 3.3 K/cumm [facility] Monocyte abs 2.3(H) 0.2 - 0.8 K/cumm [facility] Eosinophil abs 0.7(H) 0.0 - 0.5 K/cumm [facility] Basophil abs 0.0 0.0 - 0.1 K/cumm [facility] Neutrophil pct 42.1 % [facility] Comment: Consistent with previous result Interpretive Data Percent cell count reference ranges are not reported, since discordance with absolute values may lead to misinterpretation of CBC data. Current Interpretive Data was last revised on 2018. Imm gran pct 0.9 % [facility] Comment: Interpretive Data Percent cell count reference ranges are not reported, since discordance with absolute values may lead to misinterpretation of CBC data. Current Interpretive Data was last revised on 2018. Lymphocyte pct 33.6 % [facility] Comment: Interpretive Data Percent cell count reference ranges are not reported, since discordance with absolute values may lead to misinterpretation of CBC data. Current Interpretive Data was last revised on 2018. Monocyte pct 17.5 % [facility] Comment: Interpretive Data Percent cell count reference ranges are not reported, since discordance with absolute values may lead to misinterpretation of CBC data. Current Interpretive Data was last revised on 2018. Eosinophil pct 5.6 % [facility] Comment: Interpretive Data Percent cell count reference ranges are not reported, since discordance with absolute values may lead to misinterpretation of CBC data. Current Interpretive Data was last revised on 2018. Basophil pct 0.3 % [facility] Comment: Interpretive Data Percent cell count reference ranges are not reported, since discordance with absolute values may lead to misinterpretation of CBC data. Current Interpretive Data was last revised on 2018. Blood 08/26/2023 3:04 AM CDT 08/26/2023 3:40 AM CDT Olena Null MD LAB BLOOD ORDERABLES Final R esult Performing Organization Address [facility]/ZIP Co de Phone Number [facility] [place] [address] * Tacrolimus level trough (08/26/2023 3:04 AM CDT) Tacrolimus trough 2.1 ng/mL [facility] Comment: Interpretive Data Testing performed by [...] BLOOD ORDERABLES Final Result Performing Organization Address [facility] Co de Phone Number [facility] [place] [address] * (ABNORMAL) Hepatic function panel (08/26/2023 3:04 AM CDT) Bilirubin, total 5.3(H) 0.1 - 1.2 mg/dL [facility] Bilirubin, direct 4.4(H) 0.1 - 0.3 mg/dL [facility] Protein, pl 4.3(L) 6.5 - 8.5 g/dL [facility] Albumin 2.6(L) 3.5 - 5.0 g/dL [facility] Alk phos 213(H) 40 - 130 Units/L [facility] ALT 51 7 - 55 Units/L [facility] AST 72(H) 10 - 50 Units/L [facility] Blood 08/26/2023 3:04 AM CDT 08/26/2023 3:40 AM CDT Delia Ashby MD LAB BLOOD ORDERABLES Final Result [facility] Department [place] [address] * (ABNORMAL) Basic metabolic panel (08/26/2023 3:04 AM CDT) [facility] Sodium 141 135 - 145 mmol/L [facility] Potassium, pl 3.6 3.3 - 4.9 mmol/L [facility] Chloride 112(H) 97 - 110 mmol/L [facility] CO2 22 22 - 32 mmol/L [facility] Anion gap 7 2 - 15 mmol/L [facility] BUN 10 6 - 25 mg/dL [facility] Creatinine 0.86 0.80 - 1.30 mg/dL [facility] Glucose 79 70 - 199 mg/dL [facility] Comment: Interpretive Data Fasting glucose [...] 2022. Calcium 7.3(L) 8.5 - 10.3 mg/dL [facility] Blood 08/26/2023 3:04 AM CDT 08/26/2023 3:40 AM CDT Delia Ashby MD LAB BLOOD ORDERABLES Final Result [facility] One [facility] Department [place] [address] * Phosphorus (08/26/2023 3:04 AM CDT) Pathologist [facility] Phosphorus, pl 3.0 2.3 - 4.5 mg/dL [facility] Blood 08/26/2023 3:04 AM CDT 08/26/2023 3:40 AM CDT Delia Ashby MD LAB BLOOD ORDERABLES Final Result Performing Organization Address City/[facility]/ZIP Co de Phone Number [facility] Department [place] [address] * Magnesium (08/26/2023 3:04 AM CDT) [facility] Magnesium 1.7 1.4 - 2.5 mg/dL [facility] Blood 08/26/2023 3:04 AM CDT 08/26/2023 3:40 AM CDT Delia Ashby MD LAB BLOOD ORDERABLES Final Result Performing Organization Address City/[facility] de Phone Number [facility] Department [place] [address] * (ABNORMAL) CBC with auto differential (08/26/2023 3:04 AM CDT) [facility] WBC 13.0(H) 3.8 - 9.9 K/cumm [facility] Hgb 10.3(L) 13.0 - 17.5 g/dL [facility] Comment: Interpretive Data A reference range for this assay has not been established for patients with an unknown legal sex. Please refer to the laboratory test catalog for established sex-specific reference intervals. Current interpretive data was last revised on 2023. Hct 28.3(L) 38.9 - 50.3 % [facility] Comment: Interpretive Data A reference range for this assay has not been established for patients with an unknown legal sex. Please refer to the laboratory test catalog for established sex-specific reference intervals. Current interpretive data was last revised on 2023. Plt 259 150 - 400 K/cumm [facility] MPV 11.5 9.1 - 12.3 fL [facility] RBC 2.81(L) 4.30 - 5.80 M/cumm [facility] Comment: Interpretive Data A reference range for this assay has not been established for patients with an unknown legal sex. Please refer to the laboratory test catalog for established sex-specific reference intervals. Current interpretive data was last revised on 2023. MCV 100.7(H) 81.3 - 96.4 fL [facility] MCH 36.7(H) 27.1 - 33.3 pg [facility] MCHC 36.4(H) 32.3 - 35.7 g/dL [facility] RDW CV 18.7(H) 11.1 - 14.9 % [facility] RDW SD 69.0(H) 35.7 - 48.1 fL [facility] NRBC abs 0.00 0.00 - 0.01 K/cumm [facility] Blood 08/26/2023 3:04 AM CDT 08/26/2023 3:40 AM CDT Delia Ashby MD LAB BLOOD ORDERABLES Final Result Performing Organization Address City/[facility]/ZIP Co de Phone Number [facility] [place] [employer] [address] * (ABNORMAL) Lactate dehydrogenase (LD) (08/26/2023 3:04 AM CDT) Lactate dehydrogenase (LDH) 502(H) 100 - 250 Units/L [facility] Blood 08/26/2023 3:04 AM CDT 08/26/2023 3:40 AM CDT Narrative [facility] - 08/26/2023 4:11 AM CDT Wednesday and only. Morning draw. Delia Ashby MD LAB BLOOD ORDERABLES Final Result Performing Organization Address City/[facility]/ZIP Co de Phone Number [facility] [place] [employer] [place] [address] * (ABNORMAL) Uric acid (08/26/2023 3:04 AM CDT) Pathologist [facility] Uric acid 2.2(L) 3.0 - 8.0 mg/dL [facility] Blood 08/26/2023 3:04 AM CDT 08/26/2023 3:40 AM CDT Narrative [facility] - 08/26/2023 4:11 AM CDT Wednesday and only. Morning draw. . Delia Ashby MD LAB BLOOD ORDERABLES Final Result Performing Organization Address [facility] Co de Phone Number [facility] Department [place] [address] * Type and screen (08/26/2023 3:04 AM CDT) [facility] Carol, indirect Negative Comment:Patient has previous antibody history ABO Rh A Positive [facility] Blood 08/26/2023 3:04 AM CDT 08/26/2023 3:53 AM CDT Narrative [facility] - 08/26/2023 5:49 AM CDT Has the patient had Daratumumab or Isatuximab in the past 6 months?->Unknown Delia Ashby MD LAB BLOOD BANK TEST ORDERA BLES Final Result Performing Organization Address [facility] Co de Phone Number [facility] [place] [address] * (ABNORMAL) Vancomycin level trough Draw trough 30 minutes prior to 4th dose. (08/26/2023 3:04 AM CDT) [facility] Vancomycin trough <4.0(L) 10.0 - 20.0 mcg/mL [facility] Comment:Reviewed Blood 08/26/2023 3:04 AM CDT 08/26/2023 3:40 AM CDT Narrative [facility] - 08/26/2023 4:27 AM CDT Draw trough 30 minutes prior to 4th dose. Olena Null MD LAB BLOOD ORDERABLES Final R esult [facility] One [facility] Department [place] [address] * (ABNORMAL) Respiratory pathogen panel Nasopharyngeal (08/25/2023 5:34 PM CDT) [facility] Influenza A RNA Not Detected Not Detected [facility] Influenza B RNA Not Detected Not Detected [facility] RSV RNA Not Detected Not Detected [facility] COVID-19 RNA Not Detected Not Detected [facility] Coronavirus 229E RNA Not Detected Not Detected [facility] Coronavirus HKU1 RNA Not Detected Not Detected [facility] Coronavirus NL63 RNA Not Detected Not Detected [facility] Coronavirus OC43 RNA Not Detected Not Detected [facility] Adenovirus DNA Not Detected Not Detected [facility] Metapneumovirus RNA Not Detected Not Detected [facility] Rhinovirus/Enterov irus RNA Detected(A) Not Detected [facility] Parainfluenza 1 RNA Not Detected Not Detected [facility] Parainfluenza 2 RNA Not Detected Not Detected [facility] Parainfluenza 3 RNA Not Detected Not Detected [facility] Parainfluenza 4 RNA Not Detected Not Detected [facility] B. pertussis DNA Not Detected Not Detected [facility] B. parapertussis DNA Not Detected Not Detected [facility] C. pneumoniae DNA Not Detected Not Detected [facility] M. pneumoniae DNA Not Detected Not Detected [facility] Nasopharyngeal 08/25/2023 5: 34 PM CDT 08/25/2023 5:43 PM CDT Narrative [facility] - 08/25/2023 7:14 PM CDT Is the Patient experiencing symptoms consistent with COVID?->Yes Date of Symptom Onset->08/23/23 Reason for testing?->Symptomatic Surveillance testing for transplant patient?->No ??Interpretive Data The CignifiArray Respiratory Panel (RP2.1) assay is a multiplexed [...] assay has FDA clearance for testing of AIR CONTROL ELECTRONICS OPERATOR swabs. ??The performance of additional specimen types has been assessed by the performing laboratory. ??The performance characteristics of this assay have been determined by [facility] Molecular Infectious Disease Laboratory. Current interpretive data was last revised on 22. Karena Verdugo MD LAB MICROBIOLOGY - [facility] AL ORDERABLES Final Result [facility] Department [place] [address] * US Vein Duplex Lower Extremity Bilateral Complete (08/25/2023 4:32 PM CDT) Anatomical Region Laterality Modality Vascular Bilateral Ultrasound 08/25/2023 5:52 PM CDT Narrative 08/25/2023 11:18 PM CDT [facility] - Department of Vascular Surgery, Vascular Laboratory [address] [place] [address] Lower Extremity Venous Ultrasound Report Patient Name: BEKA LARES J : 1995 (28y 6m) Study Date: 08/25/2023 5:52:54 PM Gender: M Tech: Lily BLACKWELL Location: [id number] Ref.Provider: KARENA MAK Quality: Adequate Order Provider: KARENA MAK Procedures: Vascular Report: Venous Duplex imaging was performed bilaterally in the lower extremities. The common femoral, femoral, popliteal, posterior tibial, peroneal veins were evaluated for patency, spontaneity and phasicity with Doppler, compression and augmentation maneuvers. Great saphenous vein proximal at the junction was evaluated with compression maneuvers. Indications: Edema. Findings: Performing Slag Expander: Carol Blackwell RVT. Bilateral: Venous Doppler signals [...] above. Electronically Signed By: Severino Pickett MD [facility] 2023-08-25 23:18:29 CDT CC: CC: Procedure Note Severino Pickett MD - 08/25/2023 [facility] - Department of Vascular Surgery,Vascular Laboratory [address] [place] [id number] Lower Extremity Venous Ultrasound Report Patient Name: BEKA LARES JPatient ID: [id number] : 1995 (28y 6m)Study Date: 08/25/2023 5:52:54 PM Gender: MAccession #: [id number] Tech: Lily AROLDONLocation: [id number] Ref.Provider: KARENA MAKQuality: Adequate Order Provider: SCOTT MAKccount #: [id number] Procedures: Vascular Report: Venous Duplex imaging was performed bilaterally in the lower extremities.The common femoral, femoral, popliteal, posterior tibial, peroneal veins wereevaluated for patency, spontaneity and phasicity with Doppler, compression and augmentationmaneuvers. Great saphenous vein proximal at the junction was evaluated with compressionmaneuvers. Indications: Edema. Findings: Performing Slag Expander: Carol Blackwell RVT. Bilateral: Venous Doppler signals [...] above. Electronically Signed By: Severino Pickett MD [facility] 2023-08-25 23:18:29 CDT CC: CC: us Karena Verdugo MD IMG US PROCEDURES Final Result * Vancomycin level trough (08/25/2023 5:34 AM CDT) [facility] Vancomycin trough 10.3 10.0 - 20.0 mcg/mL [facility] Blood 08/25/2023 5:34 AM CDT 08/25/2023 5:42 AM CDT us Anita Gillespie MD LAB BLOOD ORDERABLES Final Result Performing Organization Address [facility] de Phone Number [facility] Department [place] [address] * (ABNORMAL) Manual Differential (08/25/2023 5:33 AM CDT) [facility] Differential Auto [facility] RBC morphology Present(A) [facility] Anisocytosis Marked(A) [facility] Poikilocytosis Marked(A) [facility] Macrocytes > 15/HPF(A) [facility] Schistocytes 1-2/HPF(A) [facility] Acanthocytes 3-7/HPF(A) [facility] Echinocytes 8-15/HPF(A ) [facility] Blood 08/25/2023 5:33 AM CDT 08/25/2023 5:58 AM CDT us Olena Null MD LAB BLOOD ORDERABLES Final R esult Performing Organization Address [facility] de Phone Number [facility] Department [place] [address] * eGFR (08/25/2023 5:33 AM CDT) [facility] eGFR >90 90 - 130 mL/min/1. 73 m2 [facility] Comment: Interpretive Data Reference Interval Normal [...] MD LAB BLOOD ORDERABLES Fin al Result [facility] One [facility] Department [place] [address] * (ABNORMAL) Differential, auto (08/25/2023 5:33 AM CDT) Neutrophil abs 5.1 1.7 - 6.5 K/cumm [facility] Imm gran abs 0.1 0.0 - 0.1 K/cumm [facility] Lymphocyte abs 5.0(H) 0.8 - 3.3 K/cumm [facility] Monocyte abs 2.2(H) 0.2 - 0.8 K/cumm [facility] Eosinophil abs 0.9(H) 0.0 - 0.5 K/cumm [facility] Basophil abs 0.1 0.0 - 0.1 K/cumm [facility] Neutrophil pct 38.1 % [facility] Comment: Confirmed by smear review Interpretive Data Percent cell count reference ranges are not reported, since discordance with absolute values may lead to misinterpretation of CBC data. Current Interpretive Data was last revised on 2018. Imm gran pct 0.6 % [facility] Comment: Interpretive Data Percent cell count reference ranges are not reported, since discordance with absolute values may lead to misinterpretation of CBC data. Current Interpretive Data was last revised on 2018. Lymphocyte pct 37.6 % [facility] Comment: Interpretive Data Percent cell count reference ranges are not reported, since discordance with absolute values may lead to misinterpretation of CBC data. Current Interpretive Data was last revised on 2018. Monocyte pct 16.7 % [facility] Comment: Interpretive Data Percent cell count reference ranges are not reported, since discordance with absolute values may lead to misinterpretation of CBC data. Current Interpretive Data was last revised on 2018. Eosinophil pct 6.6 % [facility] Comment: Interpretive Data Percent cell count reference ranges are not reported, since discordance with absolute values may lead to misinterpretation of CBC data. Current Interpretive Data was last revised on 2018. Basophil pct 0.4 % [facility] Comment: Interpretive Data Percent cell count reference ranges are not reported, since discordance with absolute values may lead to misinterpretation of CBC data. Current Interpretive Data was last revised on 2018. Blood 08/25/2023 5:33 AM CDT 08/25/2023 5:40 AM CDT us Olena Null MD LAB BLOOD ORDERABLES Final R esult [facility] One [facility] Department of Laboratories [place], [place] [id number] * Tacrolimus level trough (08/25/2023 5:33 AM CDT) [facility] Tacrolimus trough 4.2 ng/mL [facility] Comment: Interpretive Data Testing [...] BLOOD ORDERABLES Final Result Performing Organization Address City/[facility]/ZIP Co de Phone Number [facility] [place] [employer] [address] * (ABNORMAL) Hepatic function panel (08/25/2023 5:33 AM CDT) [facility] Bilirubin, total 5.1(H) 0.1 - 1.2 mg/dL [facility] Bilirubin, direct See Comment 0.1 - 0.3 mg/dL [facility] Comment:Credited; Hemolyzed Specimen Protein, pl 4.2(L) 6.5 - 8.5 g/dL [facility] Albumin 2.5(L) 3.5 - 5.0 g/dL [facility] Alk phos 213(H) 40 - 130 Units/L [facility] ALT 57(H) 7 - 55 Units/L [facility] AST 94(H) 10 - 50 Units/L [facility] Comment:Hemolyzed; result ma y be falsely elevated Blood 08/25/2023 5:33 AM CDT 08/25/2023 5:40 AM CDT Delia Ashby MD LAB BLOOD ORDERABLES Final Result Performing Organization Address City/[facility]/ZIP Co de Phone Number [facility] Department [place] [address] * (ABNORMAL) Basic metabolic panel (08/25/2023 5:33 AM CDT) Pathologist [facility] Sodium 140 135 - 145 mmol/L [facility] Potassium, pl 5.1(H) 3.3 - 4.9 mmol/L [facility] Comment:Hemolyzed; Potassium value may be falsely elevated by as much as 0.6-1.0 mmol/L. Suggest redraw and reanalysis. Chloride 112(H) 97 - 110 mmol/L [facility] CO2 21(L) 22 - 32 mmol/L [facility] Anion gap 7 2 - 15 mmol/L [facility] BUN 10 6 - 25 mg/dL [facility] Creatinine 0.84 0.80 - 1.30 mg/dL [facility] Glucose 83 70 - 199 mg/dL [facility] Comment: Interpretive Data Fasting glucose [...] 2022. Calcium 6.9(L) 8.5 - 10.3 mg/dL [facility] Blood 08/25/2023 5:33 AM CDT 08/25/2023 5:40 AM CDT us Delia Ashby MD LAB BLOOD ORDERABLES Final Result [facility] One [facility] [place] [address] * Phosphorus (08/25/2023 5:33 AM CDT) Pathologist [facility] Phosphorus, pl 2.5 2.3 - 4.5 mg/dL [facility] Blood 08/25/2023 5:33 AM CDT 08/25/2023 5:40 AM CDT us Delia Ashby MD LAB BLOOD ORDERABLES Final Result [facility] One [facility] Department [place] [address] * Magnesium (08/25/2023 5:33 AM CDT) Pathologist [facility] Magnesium 1.9 1.4 - 2.5 mg/dL [facility] Blood 08/25/2023 5:33 AM CDT 08/25/2023 5:40 AM CDT Delia Ashby MD LAB BLOOD ORDERABLES Final Result Performing Organization Address [facility] de Phone Number [facility] One [facility] [place] [address] * (ABNORMAL) CBC with auto differential (08/25/2023 5:33 AM CDT) Pathologist [facility] WBC 13.3(H) 3.8 - 9.9 K/cumm [facility] Hgb 10.5(L) 13.0 - 17.5 g/dL [facility] Comment: Interpretive Data A reference range for this assay has not been established for patients with an unknown legal sex. Please refer to the laboratory test catalog for established sex-specific reference intervals. Current interpretive data was last revised on 2023. Hct 28.7(L) 38.9 - 50.3 % [facility] Comment: Interpretive Data A reference range for this assay has not been established for patients with an unknown legal sex. Please refer to the laboratory test catalog for established sex-specific reference intervals. Current interpretive data was last revised on 2023. Plt 256 150 - 400 K/cumm [facility] MPV 12.2 9.1 - 12.3 fL [facility] RBC 2.83(L) 4.30 - 5.80 M/cumm [facility] Comment: Interpretive Data A reference range for this assay has not been established for patients with an unknown legal sex. Please refer to the laboratory test catalog for established sex-specific reference intervals. Current interpretive data was last revised on 2023. MCV 101.4(H) 81.3 - 96.4 fL [facility] MCH 37.1(H) 27.1 - 33.3 pg [facility] MCHC 36.6(H) 32.3 - 35.7 g/dL [facility] RDW CV 18.9(H) 11.1 - 14.9 % [facility] RDW SD 69.3(H) 35.7 - 48.1 fL [facility] NRBC abs 0.00 0.00 - 0.01 K/cumm [facility] Blood 08/25/2023 5:33 AM CDT 08/25/2023 5:40 AM CDT us Delia Ashby MD LAB BLOOD ORDERABLES Final Result [facility] One [facility] Department [place] [address] * Blood culture Blood (08/24/2023 11:09 AM CDT) Report Final Report: No growth [facility] Blood 08/24/2023 11:0 9 AM CDT 08/24/2023 11:21 AM CDT Narrative [facility] - 08/28/2023 12:00 PM CDT Collection->Peripheral [...] organism identification may be performed using the [employer] Gram-Positive Blood Culture Assay. This assay detects microbial DNA in positive blood culture broth via hybridization of target DNA to capture oligonucleotides on a microarray. This assay has been cleared by the [place] Food and Drug Administration and its performance characteristics have been verified by the [facility] Microbiology Laboratory. 5. ?For questions about this culture, contact the Microbiology Laboratory at [phone]. Interpretive data was last revised on 2020. us Karena Verdugo MD LAB MICROBIOLOGY - GENER AL ORDERABLES Final Result [facility] One [facility] Department [place] [address] * Blood culture Blood (08/24/2023 11:09 AM CDT) Report Final Report: No growth [facility] Blood 08/24/2023 11:0 9 AM CDT 08/24/2023 11:20 AM CDT Narrative [facility] - 08/28/2023 12:00 PM CDT Collection->Peripheral [...] organism identification may be performed using the [employer] Gram-Positive Blood Culture Assay. This assay detects microbial DNA in positive blood culture broth via hybridization of target DNA to capture oligonucleotides on a microarray. This assay has been cleared by the [place] Food and Drug Administration and its performance characteristics have been verified by the [facility] Microbiology Laboratory. 5. ?For questions about this culture, contact the Microbiology Laboratory at [phone]. Interpretive data was last revised on 2020. us Karena Verdugo MD LAB MICROBIOLOGY - GENER AL ORDERABLES Final Result [facility] One [facility] Department [place] [address] * TRANSTHORACIC ECHO (TTE) COMPLETE W DOPPLER/CF WO CONTRAST (08/24/2023 10:26 AM CDT) LV EF 62 % CARDIOREPORT Anatomical Region Laterality Modality Ultrasound 08/24/2023 7:00 AM CDT Narrative 08/24/2023 10:40 AM CDT Patient name: Beka Lares Date of test: 08/24/2023 Type of test: TTE w/Doppler Hospital #: [id number] Date of : 1995 (M) Slag Expander: Saige Carrasco RDCS Referring Physician: OLENA NULL MD Contrast Agent: Contrast Administered by: Supervised/Interpreted by: Sharita Colorado MD Diagnosis: Location: [place] [facility] Reason for test: peripheral edema MV [...] 2=Hypo 3=Akinetic 4=Dyskin./Aneurysm 0=Not visualized) Parasternal Long [place]:MAS=1 BAS=1 MIL=1 NGUYỄN=1 Parasternal Short [place]:MAS=1 MIS=1 MN=1 MIL=1 MAL=1 MA=1 Apical 4 Chambers:=1 MIS=1 BIS=1 BAL=1 MAL=1 AL=1 AC=1 Apical 2 Chambers:AI=1 MN=1 BI=1 BA=1 MA=1 AA=1 AC=1 LV Global [...] MD By signing this report, the attending offset machine operator certifies that he or she has personally supervised and interpreted the echocardiogram and has reviewed and or edited and agrees with the written comments contained within the report. Procedure Note Sharita Colorado MD - 08/24/2023 Patient name: Beka Lares Date of test: 08/24/2023 Type of test: TTE /[facility] #: [id number] Date of : 1995 (M) Slag Expander: Saige Carrasco GARRISON Referring Physician: OLENA NULL MD Contrast Agent: Contrast Administered by: Supervised/Interpreted by: Sahrita Colorado MD Diagnosis: Location: [facility] Reason for test: peripheral edema MV [...] 2=Hypo 3=Akinetic 4=Dyskin./Aneurysm 0=Not visualized) Parasternal Long [place]:MAS=1 BAS=1 MIL=1 NGUYỄN=1 Parasternal Short [place]:MAS=1 MIS=1 MN=1 MIL=1 MAL=1 MA=1 Apical 4 Chambers:=1 MIS=1 BIS=1 BAL=1 MAL=1 AL=1 AC=1 Apical 2 Chambers:AI=1 MN=1 BI=1 BA=1 MA=1 AA=1 AC=1 LV Global [...] MD By signing this report, the attending offset machine operator certifies that he or she has personally supervised and interpreted the echocardiogram and has reviewed and or edited and agrees with the written comments contained within the report. us Olena Null MD CV ECHO PROCEDURES Final Res ult * eGFR (08/24/2023 3:31 AM CDT) [facility] eGFR >90 90 - 130 mL/min/1. 73 m[address] [facility] Comment: Interpretive Data Reference Interval Normal [...] MD LAB BLOOD ORDERABLES Final R esult [facility] One [facility] Department [place] [address] * (ABNORMAL) Differential, auto (08/24/2023 3:31 AM CDT) Neutrophil abs 7.9(H) 1.7 - 6.5 K/cumm [facility] Imm gran abs 0.1 0.0 - 0.1 K/cumm [facility] Lymphocyte abs 3.8(H) 0.8 - 3.3 K/cumm [facility] Monocyte abs 1.9(H) 0.2 - 0.8 K/cumm [facility] Eosinophil abs 0.5 0.0 - 0.5 K/cumm [facility] Basophil abs 0.1 0.0 - 0.1 K/cumm [facility] Neutrophil pct 55.1 % [facility] Comment: Interpretive Data Percent cell count reference ranges are not reported, since discordance with absolute values may lead to misinterpretation of CBC data. Current Interpretive Data was last revised on 2018. Imm gran pct 0.6 % [facility] Comment: Interpretive Data Percent cell count reference ranges are not reported, since discordance with absolute values may lead to misinterpretation of CBC data. Current Interpretive Data was last revised on 2018. Lymphocyte pct 26.8 % [facility] Comment: Interpretive Data Percent cell count reference ranges are not reported, since discordance with absolute values may lead to misinterpretation of CBC data. Current Interpretive Data was last revised on 2018. Monocyte pct 13.4 % [facility] Comment: Interpretive Data Percent cell count reference ranges are not reported, since discordance with absolute values may lead to misinterpretation of CBC data. Current Interpretive Data was last revised on 2018. Eosinophil pct 3.7 % [facility] Comment: Interpretive Data Percent cell count reference ranges are not reported, since discordance with absolute values may lead to misinterpretation of CBC data. Current Interpretive Data was last revised on 2018. Basophil pct 0.4 % [facility] Comment: Interpretive Data Percent cell count reference ranges are not reported, since discordance with absolute values may lead to misinterpretation of CBC data. Current Interpretive Data was last revised on 2018. Blood 08/24/2023 3:31 AM CDT 08/24/2023 3:49 AM CDT us Olena Null MD LAB BLOOD ORDERABLES Final R esult [facility] One [facility] Department [place] [address] * (ABNORMAL) Protime-INR (08/24/2023 3:31 AM CDT) PT 17.2(H) 10.3 - 13.7 sec [facility] INR 1.51(H) 0.90 - 1.20 [facility] Comment: Interpretive data Oral anticoagulant therapeutic ranges: Venous thromboembolism prophylaxis or treatment: 2.0-3.0 CARDIOLOGY Standard range: 2.0-3.0 High-intensity range: 2.5-3.5 Refer to indication-specific guidelines for appropriate target ranges for prosthetic heart valve replacement. Current interpretive data was last revised on 2019. Blood 08/24/2023 3:31 AM CDT 08/24/2023 3:48 AM CDT Delia Ashby MD LAB BLOOD ORDERABLES Final Result Performing Organization Address [facility] Co de Phone Number [facility] [place] [address] * aPTT (08/24/2023 3:31 AM CDT) aPTT 34 28 - 38 sec [facility] Comment: Interpretive Data Heparin therapeutic range: 66.0 - 100.0 seconds. Range based on correlation with therapeutic heparin activity range of 0.3 - 0.7 Units/mL. Current interpretive data was last revised on 2023. Blood 08/24/2023 3:31 AM CDT 08/24/2023 3:48 AM CDT Result [facility] Delia Ashby MD LAB BLOOD ORDERABLES Final Result Performing Organization Address [facility] de Phone Number [facility] [address] [place] [address] * (ABNORMAL) Lactate dehydrogenase (LD) (08/24/2023 3:31 AM CDT) Lactate dehydrogenase (LDH) 527(H) 100 - 250 Units/L [facility] Blood 08/24/2023 3:31 AM CDT 08/24/2023 3:50 AM CDT Narrative [facility] - 08/24/2023 4:18 AM CDT Wednesday and only. Morning draw. Delia Ashby MD LAB BLOOD ORDERABLES Final Result Performing Organization Address [facility] Co de Phone Number [facility] [address] [place] [address] * Uric acid (08/24/2023 3:31 AM CDT) Pathologist [facility] Uric acid 3.5 3.0 - 8.0 mg/dL [facility] Blood 08/24/2023 3:31 AM CDT 08/24/2023 3:50 AM CDT Narrative [facility] - 08/24/2023 4:18 AM CDT Wednesday and only. Morning draw. . Delia Ashby MD LAB BLOOD ORDERABLES Final Result Performing Organization Address [facility] Co de Phone Number [facility] [address] [place] [address] * Type and screen (08/24/2023 3:31 AM CDT) Pathologist [facility] ABO Rh A Positive Carol, indirect Negative [facility] Comment:Patient has previous antibody history Blood 08/24/2023 3:31 AM CDT 08/24/2023 3:45 AM CDT Narrative [facility] - 08/24/2023 4:50 AM CDT Has the patient had Daratumumab or Isatuximab in the past 6 months?->Unknown Delia Ashby MD LAB BLOOD BANK TEST ORDERA BLES Final Result Performing Organization Address [facility] Co de Phone Number [facility] Department [place] [address] [place] [address] * Phosphorus (08/24/2023 3:31 AM CDT) Pathologist [facility] Phosphorus, pl 3.4 2.3 - 4.5 mg/dL [facility] Blood 08/24/2023 3:31 AM CDT 08/24/2023 3:50 AM CDT Delia Ashby MD LAB BLOOD ORDERABLES Final Result Performing Organization Address [facility] Co de Phone Number [facility] Department [place] [address] * (ABNORMAL) Comprehensive metabolic panel (08/24/2023 3:31 AM CDT) Sodium 136 135 - 145 mmol/L [facility] Potassium, pl 4.2 3.3 - 4.9 mmol/L [facility] Chloride 108 97 - 110 mmol/L [facility] CO2 21(L) 22 - 32 mmol/L [facility] Anion gap 7 2 - 15 mmol/L [facility] BUN 10 6 - 25 mg/dL [facility] Creatinine 0.92 0.80 - 1.30 mg/dL [facility] Glucose 92 70 - 199 mg/dL [facility] Comment: Interpretive Data Fasting glucose [...] 2022. Calcium 7.6(L) 8.5 - 10.3 mg/dL [facility] Bilirubin, total 5.2(H) 0.1 - 1.2 mg/dL [facility] Protein, pl 4.4(L) 6.5 - 8.5 g/dL [facility] Albumin 2.7(L) 3.5 - 5.0 g/dL [facility] Alk phos 245(H) 40 - 130 Units/L [facility] ALT 60(H) 7 - 55 Units/L [facility] AST 88(H) 10 - 50 Units/L [facility] Blood 08/24/2023 3:31 AM CDT 08/24/2023 3:50 AM CDT us Olena Null MD LAB BLOOD ORDERABLES Final R esult [facility] One [facility] Department [place] [address] * Magnesium (08/24/2023 3:31 AM CDT) [facility] Magnesium 1.5 1.4 - 2.5 mg/dL [facility] Blood 08/24/2023 3:31 AM CDT 08/24/2023 3:50 AM CDT Delia Ashby MD LAB BLOOD ORDERABLES Final Result [facility] One [facility] [place] [address] * (ABNORMAL) CBC with auto differential (08/24/2023 3:31 AM CDT) [facility] WBC 14.3(H) 3.8 - 9.9 K/cumm [facility] Hgb 10.4(L) 13.0 - 17.5 g/dL [facility] Comment: Interpretive Data A reference range for this assay has not been established for patients with an unknown legal sex. Please refer to the laboratory test catalog for established sex-specific reference intervals. Current interpretive data was last revised on 2023. Hct 28.4(L) 38.9 - 50.3 % [facility] Comment: Interpretive Data A reference range for this assay has not been established for patients with an unknown legal sex. Please refer to the laboratory test catalog for established sex-specific reference intervals. Current interpretive data was last revised on 2023. Plt 252 150 - 400 K/cumm [facility] MPV 12.2 9.1 - 12.3 fL [facility] RBC 2.79(L) 4.30 - 5.80 M/cumm [facility] Comment: Interpretive Data A reference range for this assay has not been established for patients with an unknown legal sex. Please refer to the laboratory test catalog for established sex-specific reference intervals. Current interpretive data was last revised on 2023. MCV 101.8(H) 81.3 - 96.4 fL [facility] MCH 37.3(H) 27.1 - 33.3 pg [facility] MCHC 36.6(H) 32.3 - 35.7 g/dL [facility] RDW CV 18.7(H) 11.1 - 14.9 % [facility] RDW SD 69.1(H) 35.7 - 48.1 fL [facility] NRBC abs 0.02(H) 0.00 - 0.01 K/cumm [facility] Blood 08/24/2023 3:31 AM CDT 08/24/2023 3:49 AM CDT us Delia Ashby MD LAB BLOOD ORDERABLES Final Result Performing Organization Address [facility] de Phone Number [facility] Department [place] [address] * Protein / creatinine ratio, urine, random (08/23/2023 9:38 PM CDT) Protein, ur, quant 7.7 mg/dL [facility] Comment: Interpretive Data No reference range established. Current interpretive data was last revised 2019. Creatinine Ur 68.8 mg/dL [facility] Comment: Interpretive Data No reference range established. Current interpretive data was last revised 2019. Protein/creatinin e ratio 111.9 0.0 - 180.0 mg/g CR [facility] Urine 08/23/2023 9:38 PM CDT 08/23/2023 10:00 PM CDT us Olena Null MD LAB URINE ORDERABLES Final R esult Performing Organization Address [facility] Co de Phone Number [facility] Department [place] [address] * (ABNORMAL) Urinalysis reflex to microscopic and culture Urine (08/23/2023 9:38 PM CDT) Color, ur Yellow Yellow [facility] Clarity, ur Clear Clear [facility] Specific gravity, ur >1.042(H) 1.003 - 1.030 [facility] pH, urine 6.5 [facility] Comment: Interpretive Data ? Urine pH is affected by diet, medications, systemic acid-base disturbances, and renal tubular function. ??pH may affect urinary stone formation. ??For example, urine pH below 6.0 may help reduce the tendency for calcium phosphate stones and pH greater than 6.0 may reduce the tendency for uric acid stone formation. Source: [facility] Current Interpretive Data was last revised on 2017 Protein, ur ql Negative Negative [facility] Glucose, ur ql Negative Negative [facility] Ketones, ur Negative Negative [facility] Bilirubin, ur Negative Negative [facility] Blood, ur Negative Negative [facility] Urobilinogen, ur <2.0 <2.0 mg/dL [facility] Nitrite, ur Negative Negative [facility] Leukocyte esterase, ur Negative Negative [facility] UA reflex comment Reflex conditions for microscopic UA and culture not met. [facility] Urine 08/23/2023 9:38 PM CDT 08/23/2023 9:45 PM CDT Olena Null MD LAB MICROBIOLOGY - GENERAL O RDERABLES Final Result Performing Organization Address [facility]/State/ZIP Co de Phone Number [facility] One [facility] Department [place] [address] * MRSA Only (Staphylococcus aureus) Culture Nasal (08/23/2023 9:38 PM CDT) Report Final Report: Negative [facility] Nasal 08/23/2023 9:38 PM CDT 08/23/2023 10:01 PM CDT Narrative [facility] - 08/25/2023 12:17 AM CDT Testing performed by [facility] ([phone]). Olena Null MD LAB MICROBIOLOGY - GENERAL O RDERABLES Final Result Performing Organization Address [facility]/ZIP Co de Phone Number [facility] One [facility] Department [place] [address] * Stool culture Stool Rectum (08/23/2023 5:57 PM CDT) Direct Specimen Exam Shiga Toxin Testing: Antigen detection assay for Shiga-toxin NEGATIVE for Shiga Toxin 1 and Shiga Toxin 2. [facility] Report Final Report: No growth of enteric bacterial pathogens [facility] Stool (Rectum) 08/23/2023 5: 57 PM CDT 08/23/2023 9:26 PM CDT Narrative [facility] - 08/27/2023 2:37 PM CDT Specimen received in a sterile container. Testing performed by [facility] ([phone]). Routine stool cultures include procedures to detect Salmonella, Shigella, Edwardsiella, Aeromonas, Pleisiomonas, Campylobacter, Yersinia, E. coli O157, and Shiga-like toxins. ?? Vibrio is cultured only upon special request. ??If Vibrio is suspected, please call the laboratory at [phone]. Interpretive data was last updated March 08, 2017. Olena Null MD LAB MICROBIOLOGY - GENERAL O RDERABLES Final Result Performing Organization Address [facility] Co de Phone Number [facility] Raj [facility] Department [place] [address] * Leukocytes, fecal (08/23/2023 5:57 PM CDT) WBC, fecal No leukocytes No leukocytes [facility] Comment: Interpretive Data Testing performed by microsopy. Current Interpretive Data was last revised on 2023 Stool 08/23/2023 5:57 PM CDT 08/23/2023 9:48 PM CDT Olena Null MD LAB BODY FLUIDS AND STOOLS O RDERABLES Final Result Performing Organization Address [facility]/ZIP Co de Phone Number [facility] Department [place] [address] * TSH reflex to free T4 (08/23/2023 5:47 PM CDT) Pathologist [facility] TSH 3.92 0.30 - 4.20 mcIUnit/mL [facility] Blood 08/23/2023 5:47 PM CDT 08/23/2023 6:19 PM CDT us Anita Gillespie MD LAB BLOOD ORDERABLES Final Result [facility] [place] [address] * Folate (08/23/2023 5:47 PM CDT) Pathologist [facility] Folic acid See Comment >=5.0 ng/mL [facility] Comment: Credited; Hemolyzed Specimen Telephone report made to: Nancy Alvarez (RN) on 08/23/2023 19:29:48 CDT by Nidhi . Blood 08/23/2023 5:47 PM CDT 08/23/2023 6:19 PM CDT us Anita Gillespie MD LAB BLOOD ORDERABLES Final Result [facility] Department [place] [address] * (ABNORMAL) Vitamin B12 (08/23/2023 5:47 PM CDT) Pathologist [facility] Vitamin B12 1,349(H) 230 - 1,250 pg/mL [facility] Blood 08/23/2023 5:47 PM CDT 08/23/2023 6:19 PM CDT Anita Gillespie MD LAB BLOOD ORDERABLES Final Result [facility] [place] [address] * eGFR (08/23/2023 5:47 PM CDT) [facility] eGFR >90 90 - 130 mL/min/1. 73 m2 [facility] Comment: Interpretive Data Reference Interval Normal ?>/= [...] LAB BLOOD ORDERABLES Final R esult [facility] [place] [address] * (ABNORMAL) Differential, auto (08/23/2023 5:47 PM CDT) [facility] Neutrophil abs 6.7(H) 1.7 - 6.5 K/cumm [facility] Imm gran abs 0.1 0.0 - 0.1 K/cumm [facility] Lymphocyte abs 4.4(H) 0.8 - 3.3 K/cumm [facility] Monocyte abs 2.0(H) 0.2 - 0.8 K/cumm [facility] Eosinophil abs 0.6(H) 0.0 - 0.5 K/cumm [facility] Basophil abs 0.1 0.0 - 0.1 K/cumm [facility] Neutrophil pct 48.4 % [facility] Comment: Interpretive Data Percent cell count reference ranges are not reported, since discordance with absolute values may lead to misinterpretation of CBC data. Current Interpretive Data was last revised on 2018. Imm gran pct 0.4 % [facility] Comment: Interpretive Data Percent cell count reference ranges are not reported, since discordance with absolute values may lead to misinterpretation of CBC data. Current Interpretive Data was last revised on 2018. Lymphocyte pct 32.0 % [facility] Comment: Interpretive Data Percent cell count reference ranges are not reported, since discordance with absolute values may lead to misinterpretation of CBC data. Current Interpretive Data was last revised on 2018. Monocyte pct 14.4 % [facility] Comment: Interpretive Data Percent cell count reference ranges are not reported, since discordance with absolute values may lead to misinterpretation of CBC data. Current Interpretive Data was last revised on 2018. Eosinophil pct 4.4 % [facility] Comment: Interpretive Data Percent cell count reference ranges are not reported, since discordance with absolute values may lead to misinterpretation of CBC data. Current Interpretive Data was last revised on 2018. Basophil pct 0.4 % [facility] Comment: Interpretive Data Percent cell count reference ranges are not reported, since discordance with absolute values may lead to misinterpretation of CBC data. Current Interpretive Data was last revised on 2018. Blood 08/23/2023 5:47 PM CDT 08/23/2023 6:19 PM CDT us Olena Null MD LAB BLOOD ORDERABLES Final R esult Performing Organization Address [facility] [place] [place] [address] * Type and screen (08/23/2023 5:47 PM CDT) Carol, indirect Negative Comment:Patient has previous antibody history ABO Rh A Positive [facility] Blood 08/23/2023 5:47 PM CDT 08/23/2023 5:59 PM CDT Narrative [facility] - 08/23/2023 7:10 PM CDT Has the patient had Daratumumab or Isatuximab in the past 6 months?->Unknown Olena Null MD LAB BLOOD BANK TEST ORDERABL ES Final Result Performing Organization Address [facility] de Phone Number [facility] [place] [address] * Phosphorus (08/23/2023 5:47 PM CDT) Phosphorus, pl 4.4 2.3 - 4.5 mg/dL [facility] Blood 08/23/2023 5:47 PM CDT 08/23/2023 6:19 PM CDT Olena Null MD LAB BLOOD ORDERABLES Final R esult Performing Organization Address City/[facility] [place] [address] * Magnesium (08/23/2023 5:47 PM CDT) Magnesium 1.6 1.4 - 2.5 mg/dL [facility] Blood 08/23/2023 5:47 PM CDT 08/23/2023 6:19 PM CDT Olena Null MD LAB BLOOD ORDERABLES Final R esult [facility] One [facility] Department [place] [address] * (ABNORMAL) Comprehensive metabolic panel (08/23/2023 5:47 PM CDT) Sodium 140 135 - 145 mmol/L [facility] Potassium, pl 5.2(H) 3.3 - 4.9 mmol/L [facility] Comment:Hemolyzed; Potassium value may be falsely elevated by as much as 0.3-0.5 mmol/L. Suggest redraw and reanalysis. Chloride 111(H) 97 - 110 mmol/L [facility] CO2 21(L) 22 - 32 mmol/L [facility] Anion gap 8 2 - 15 mmol/L [facility] BUN 9 6 - 25 mg/dL [facility] Creatinine 0.69(L) 0.80 - 1.30 mg/dL [facility] Glucose 89 70 - 199 mg/dL [facility] Comment: Interpretive Data Fasting glucose [...] 2022. Calcium 8.3(L) 8.5 - 10.3 mg/dL [facility] Bilirubin, total 4.5(H) 0.1 - 1.2 mg/dL [facility] Protein, pl 4.9(L) 6.5 - 8.5 g/dL [facility] Albumin 3.1(L) 3.5 - 5.0 g/dL [facility] Alk phos 263(H) 40 - 130 Units/L [facility] ALT 70(H) 7 - 55 Units/L [facility] AST 101(H) 10 - 50 Units/L [facility] Comment:Hemolyzed; result ma y be falsely elevated Blood 08/23/2023 5:47 PM CDT 08/23/2023 6:19 PM CDT Olena Null MD LAB BLOOD ORDERABLES Final R esult [facility] One [facility] Department [place] [address] * (ABNORMAL) CBC with auto differential (08/23/2023 5:47 PM CDT) [facility] WBC 13.8(H) 3.8 - 9.9 K/cumm [facility] Hgb 11.6(L) 13.0 - 17.5 g/dL [facility] Comment: Interpretive Data A reference range for this assay has not been established for patients with an unknown legal sex. Please refer to the laboratory test catalog for established sex-specific reference intervals. Current interpretive data was last revised on 2023. Hct 31.8(L) 38.9 - 50.3 % [facility] Comment: Interpretive Data A reference range for this assay has not been established for patients with an unknown legal sex. Please refer to the laboratory test catalog for established sex-specific reference intervals. Current interpretive data was last revised on 2023. Plt 254 150 - 400 K/cumm [facility] MPV 11.4 9.1 - 12.3 fL [facility] RBC 3.10(L) 4.30 - 5.80 M/cumm [facility] Comment: Interpretive Data A reference range for this assay has not been established for patients with an unknown legal sex. Please refer to the laboratory test catalog for established sex-specific reference intervals. Current interpretive data was last revised on 2023. MCV 102.6(H) 81.3 - 96.4 fL [facility] MCH 37.4(H) 27.1 - 33.3 pg [facility] MCHC 36.5(H) 32.3 - 35.7 g/dL [facility] RDW CV 19.2(H) 11.1 - 14.9 % [facility] RDW SD 71.3(H) 35.7 - 48.1 fL [facility] NRBC abs 0.00 0.00 - 0.01 K/cumm [facility] Blood 08/23/2023 5:47 PM CDT 08/23/2023 6:19 PM CDT Olena Null MD LAB BLOOD ORDERABLES Final R esult [facility] One [facility] Department [place] [address] documented in this encounter Visit Diagnoses Diagnosis [...] hypomagnesemia Hypocalcemia Jaundice Jaundice, unspecified, not of History of liver transplant (CMS/HCC) (HCC) 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 Do not swallow. Given 09/03/2023 9:12 AM CDT 0.5 mg Given 09/02/2023 8:03 AM CDT 0.5 mg Given 09/01/2023 8:46 AM CDT 0.5 mg Carrier Fluids for Secondary Infusion - 0.9% [...] 8:21 PM CDT 2,000 mg 1200 mL/hr foscarnet (FOSCAVIR) 24 mg/mL injection 6,000 mg 6,000 mg, intravenous, Administer over 2 Hours, Every 12 hours scheduled, First dose on Wed09/03/23 at 1200, Central line only, Indications: Blood Stream/Endovascular InfectionIndications:Blood Stream/Endovascular Infection New Bag 09/03/2023 11:49 AM CDT 6,000 mg furosemide (LASIX) tablet 40 mg 40 mg, oral, Daily, First dose on Brenda 09/02/23 at 1615 Given 09/03/2023 8:10 AM CDT 40 mg Given 09/02/2023 5:50 PM CDT 40 mg heparin 10 unit/mL flush 20-50 Units 20-50 [...] Given 08/31/2023 9:02 PM CDT 50 Units magnesium oxide (MAG-OX) tablet 400 mg 400 mg, oral, 2 times daily, First dose on Wed08/27/23 at 1245, 1 tablet = Magnesium oxide 400 mg = 241.3 mg elemental magnesium, Indications: hypomagnesemiaIndications:hypomagnesemia Given 09/03/2023 8:11 AM CDT 400 mg Given 09/02/2023 9:08 PM CDT 400 mg Given 09/02/2023 8:49 AM CDT 400 mg magnesium sulfate 4 g/100 mL in water (premix) 4 g 4 g, intravenous, Administer over 90 Minutes, Every 4 hours PRN, magnesium replacement, Starting on Wed08/23/23 at 1709, For magnesium level of 1.2-1.5 mg/dL, Indications: hypomagnesemiaIndications:hypomagnesemia New Bag 09/03/2023 6:22 AM CDT 4 g New Bag 08/27/2023 6:00 AM CDT 4 g New Bag 08/24/2023 6:03 AM CDT 4 g metroNIDAZOLE (FLAGYL) tablet 500 mg 500 mg, [...] May administer IV if not tolerating oral. potassium chloride ER (KLOR-CON) extended release tablet [...] medication administrations, Starting on Wed08/23/23 at 1705 New Bag 08/28/2023 1:33 PM CDT 30 mL/hr 30 mL/hr Rate/Dose Verify 08/27/2023 1:27 PM CDT 30 mL/h r New Bag 08/24/2023 5:55 AM CDT 30 mL/hr 30 mL/hr sodium phosphate - potassium phosphate (K-PHOS NEUTRAL) tablet 250 mg 250 mg, oral, 2 times daily with meals (bkfst, dinner), First dose on 08/28/23 at 0930, Each tablet contains elemental phosphorus 250 mg (8 mmol), potassium 45 mg (1.1 mEq), and sodium 298 mg (13 mEq). Given 09/03/2023 8:11 AM CDT 250 m g Given 09/02/2023 5:50 PM CDT 250 mg [...] Given 09/02/2023 8:49 AM CDT 900 mg documented in this encounter Discontinued Medications [...] solution 0.5 mg 0.5 mg, nebulization, 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 Do not swallow. 0846 (Given - Provider: Sidra Zaidi, YIFAN)1039 (DEC Hold - Provider: Automatic Transfer Provider - Reason: Patient not available)1650 (MAR Unhold - Provider: Automatic Transfer Provider) 0803 [...] Linda Acosta RN)1405 (Stopped - Provider: Linda Acosta RN) foscarnet (FOSCAVIR) 3,900 mg in sodium chloride 0.9% 325 mL (12 mg/mL) IVPB (CANCELED) 3,900 mg (rounded from 3,840 mg = 60 mg/kg ? 64 kg), intravenous, Administer over 2 Hours, Every 8 hours scheduled, First dose on Wed08/24/23 at 1900, Peripheral line only, Indications: Blood Stream/Endovascular Infection 0223 (New Bag - Provider: Bonita Rahman, SHAILESH)0425 (Stopped - Provider: Bonita Rahman, SHAILESH)1039 (DEC Hold - Provider: Automatic Transfer Provider - Reason: Patient not available)1100 (Not Given - Provider: Karli Crum RN - Reason: Patient not available)165 (DEC Unhold - Provider: Automatic Transfer Provider)1940 (New Bag - Provider: Luisa Goldberg, SHAILESH)215 (Stopped - Provider: uLisa Goldberg RN) 0317 (New Bag - Provider: Luisa Goldberg RN)0522 (Stopped - Provider: Luisa Goldberg RN)1118 (New Bag - Provider: Crystal Cunha, SHAILESH)1323 (Stopped - Provider: Crystal Cunha RN)195 (New Bag - Provider: Gretchen Hou RN)2200 (Stopped - Provider: Gretchen Hou RN) 0303 (New Bag - Provider: Gretchen Hou RN)0505 (Stopped - Provider: Gretchen Hou RN) furosemide (LASIX) 10 mg/mL injection 60 mg (CANCELED) 60 mg, intravenous, 2 times daily (for diuretics), First dose on 08/30/23 at 1800, For IV push: administer doses [...] First dose on Brenda 09/02/23 at 1615 1750 (Given - Provider: Crystal [...] available)1650 (MAR Unhold - Provider: Automatic Transfer Provider)2020 (Given - Provider: Luisa Goldberg, SHAILESH) 0849 (Given - Provider: Crystal Cunha RN)2108 (Given - Provider: Gretchen Hou RN) 0811 (Given - Provider: Linda Acosta, SHAILESH) metroNIDAZOLE (FLAGYL) tablet 500 mg 500 mg, oral, 3 times daily, First dose on Brenda 08/26/23 at 1600, Indications: Blood Stream/Endovascular Infection 0843 (Given - Provider: Karli Crum RN)1039 (DEC Hold - Provider: Automatic Transfer Provider - Reason: Patient not available)1600 (Not Given - Provider: Karli Crum RN - Reason: Other - Comment: hold auto hold)1650 (MAR Unhold - Provider: Automatic Transfer Provider)2025 (Given - Provider: Luisa Goldberg RN) 0848 (Given - Provider: Crystal Cunha, [...] Cunha RN) 0809 (Given - Provider: Linda Acosta, SHAILESH) sodium chloride 0.9% bolus 500 mL (CANCELED) 500 mL, intravenous, at 250 mL/hr, Administer over 2 Hours, Every 8 hours scheduled, First dose on Wed08/24/23 at 1900, Administer NS concommitantly with all subsequent doses of foscarnet IV infusion after the first dose., Indications: concurrent hydration with foscarnet 0223 (New Bag - Provider: Bonita Rahman RN)0425 (Stopped - Provider: Bonita Rahman RN)1039 ([facility] Hold - Provider: Automatic Transfer Provider - Reason: Patient not available)1100 (Not Given - Provider: Karli Crum RN - Reason: Patient not available)1650 ([facility] Unhold - Provider: Automatic Transfer Provider)1940 (New Bag - Provider: Luisa Goldberg RN)2152 (Stopped - Provider: Luisa Goldberg RN) 0317 (New Bag - Provider: Luisa Goldberg RN)0522 (Stopped - Provider: Luisa Goldberg RN)1118 (New Bag - Provider: Crystal Cunha RN)1323 (Stopped - Provider: Crystal Cunha, SHAILESH)1954 (New Bag - Provider: Gretchen Hou RN)2200 [...] Linda Acosta RN)1406 (Stopped - Provider: Linda Acosta, SHAILESH) sodium chloride 0.9% flush 0.5-20 mL 0.5-20 mL, intra-catheter, Every 8 hours scheduled, First dose on Wed08/23/23 at 1745, Flush volume based on line type and size. 0211 (Not Given - Provider: Bonita Rahman RN - Reason: IV Infusing)0600 (Due)1039 (DEC Hold - Provider: Automatic Transfer Provider - Reason: Patient not available)1400 (Not Given - Provider: Karli Crum RN - Reason: Patient not available)1650 (DEC Unhold - Provider: Automatic Transfer Provider)2015 (Lab Draw - Provider: Luisa Goldberg, SHAILESH) 0434 (Lab Draw - Provider: Luisa Goldberg [...] and size. 0805 (Given - Provider: Linda Acosta, SHAILESH)1400 (Due) sodium chloride 0.9% flush 0.5-20 mL [...] Crystal Cunha RN - Reason: IV Infusing)220 (Given - Provider: Gretchen Hou RN) 0623 [...] Goldberg RN) 0850 (Given - Provider: Crystal Cunha, SHAILESH)211 (Given - Provider: Gretchen Hou RN) 0806 [...] Crum, SHAILESH) 0848 (Given - Provider: Crystal Cunha, SHAILESH)1750 (Given - Provider: Crystal Cunha RN) 0811 [...] Crum RN) 1750 (Given - Provider: Crystal Cunha RN) valGANciclovir (VALCYTE) tablet 900 mg 900 mg, oral, 2 times daily, First dose on Wed08/24/23 at 2100, Do not crush, chew, cut, dissolve, open or otherwise manipulate tablet/capsule., Indications: Blood Stream/Endovascular Infection 0843 (Given - Provider: Karli Crum RN)1039 (DEC Hold - Provider: Automatic Transfer Provider - Reason: Patient not available)1650 (DEC Unhold - Provider: Automatic Transfer Provider)2020 (Given - Provider: Luisa Goldberg RN) 0849 (Given - Provider: Crystal Cunha RN)2109 (Given - Provider: Gretchen Hou, SHAILESH) 0809 (Given - Provider: Linda Acosta, SHAILESH) Continuous Medication Order 09/01/2023 09/02/2023 09/03/2023 sodium chloride 0.9% infusion () 30 mL/hr, intravenous, Continuous, Starting on Wed09/01/23 at 1130, For 6 hours, Pre-Procedure (GI) 1100 (New Bag - Provider: Pauline Roberts RN)1741 (Stopped - Provider: Karli Crum RN) sodium chloride 0.9% infusion (CANCELED) 50 mL/hr, intravenous, Continuous, Starting on Wed09/01/23 at 1700, Phase I 1700 (Not Given - Provider: Karli Crum RN - Reason: Other - Comment: duplicate)1756 (New Bag - Provider: Karli Crum, SHAILESH)1759 (Stopped - Provider: Karli Crum RN) PRN Medication Order 09/01/2023 09/02/2023 09/03/2023 acetaminophen (TYLENOL) tablet 650 mg 650 mg, oral, Every 6 hours PRN, fever, Starting on Wed08/23/23 at 1710, Indications: Fever 1039 ([facility] Hold - Provider: Automatic Transfer Provider - Reason: Patient not available)1650 ([facility] Unhold - Provider: Automatic Transfer Provider) Carrier Fluids for Secondary Infusion - 0.9% Sodium Chloride 30 mL, intravenous, As needed, For priming tubing and/or flushing, Starting on Wed08/23/23 at 1708, 0-250 ml/hr to flush line after IV infusions when no maintenance IV ordered. Infuse 30mL at the same rate as the secondary infusion. Run as primary IV, not intended for KVO. 1039 ([facility] [facility] Hold - Provider: Automatic Transfer Provider - Reason: Patient not available)1650 ([facility] Unhold - Provider: Automatic Transfer Provider) Carrier [...] Maintain Patency of Indwelling Vascular Catheter 1039 ([facility] Hold - Provider: Automatic Transfer Provider - Reason: Patient not available)1649 ([facility] Unhold - Provider: Automatic Transfer Provider)2026 (Given - Provider: Luisa Goldberg RN) heparin 100 unit/mL injection 500 Units 500 Units (5 mL), intra-catheter, Once as needed, line care, Starting on Wed08/23/23 at 1705, For 1 dose, For port decannulation., Indications: Maintain Patency of Indwelling Vascular Catheter 1039 ([facility] Hold - Provider: Automatic Transfer Provider - Reason: Patient not available)1649 ([facility] Unhold - Provider: Automatic Transfer Provider) magnesium sulfate 4 g/100 mL in water (premix) 4 g 4 g, intravenous, Administer over 90 Minutes, Every 4 hours PRN, magnesium replacement, Starting on Wed08/23/23 at 1709, For magnesium level of 1.2-1.5 mg/dL, Indications: hypomagnesemia 1039 ([facility] Hold - Provider: Automatic Transfer Provider - Reason: Patient not available)165 ([facility] Unhold - Provider: Automatic Transfer Provider) 0622 (New Bag - Provider: Gretchen Hou RN)0802 (Stopped - Provider: Linda Acosta RN) magnesium sulfate 6 g in sodium chloride 0.9% 250 mL IVPB 6 g, intravenous, at 131 mL/hr, Administer over 120 Minutes, Every 4 hours PRN, magnesium replacement, Starting on Wed08/23/23 at 1709, For magnesium level less than 1.2 mg/dL and call/notify provider., Indications: hypomagnesemia 1039 ([facility] Hold - Provider: Automatic Transfer Provider - Reason: Patient not available)1650 ([facility] Unhold - Provider: Automatic Transfer Provider) ondansetron (ZOFRAN) injection 8 mg(Linked Group 1) 8 mg, intravenous, Administer over 2 Minutes, Every 8 hours PRN, nausea, vomiting, if not tolerating PO, Starting on Wed08/23/23 at 1710 1039 ([facility] Hold - Provider: Automatic Transfer Provider - Reason: Patient not available)1650 ([facility] Unhold - Provider: Automatic Transfer Provider) ondansetron (ZOFRAN) tablet 8 mg(Linked Group 1) 8 mg, oral, Every 8 hours PRN, nausea, vomiting, Starting on Wed08/23/23 at 1710, May administer IV if not tolerating oral. 1039 ([facility] Hold - Provider: Automatic Transfer Provider - Reason: Patient not available)1650 ([facility] Unhold - Provider: Automatic Transfer Provider) potassium [...] be crushed or chewed., Indications: hypokalemia 1039 ([facility] Hold - Provider: Automatic Transfer Provider - Reason: Patient not available)1650 ([facility] Unhold - Provider: Automatic Transfer Provider) sodium chloride 0.9% flush 0.5-20 mL 0.5-20 mL, intra-catheter, As needed, line care, Starting on Wed08/23/23 at 1708, Flush volume based on line type and size. Flush before and after each use. 1039 ([facility] Hold - Provider: Automatic Transfer Provider - Reason: Patient not available)165 ([facility] Unhold - Provider: Automatic Transfer Provider) sodium [...] Prior to heparin to decannulate port. 1039 ([facility] Hold - Provider: Automatic Transfer Provider - Reason: Patient not available)1650 ([facility] Unhold - Provider: Automatic Transfer Provider) sodium chloride 0.9% flush 5-20 mL 5-20 mL, intra-catheter, As needed, line care, with each use, Starting on Wed08/31/23 at 1510, Flush volume based on line type, size, and protocol. 1039 ([facility] Hold - Provider: Automatic Transfer Provider - Reason: Patient not available)1650 ([facility] Unhold - Provider: Automatic Transfer Provider) sodium [...] Count Last Ordered Date First Ordered Date foscarnet (FOSCAVIR) 24 mg/m L injection 6,000 mg 1 09/03/2023 sodium chloride 0.9% bolus 500 mL 4 023 08/24/2023 sodium chloride 0.9% flush 0.5-20 mL 10 12/202208/23/2023 sodium chloride 0.9% infusion 5 09/03/2023 08/23/2023 furosemide (LASIX) tablet 40 mg 1 3 spironolactone (ALDACTONE) tablet 100 mg 1 09/02/2023 acetaminophen (TYLENOL) tablet 500 mg 1 11/2022 cefdinir (OMNICEF) capsule 300 mg 1 023 cefTRIAXone (ROCEPHIN) 2,000 mg/20 mL in sterile water (premix) 2,000 mg 3 09/01/2023 08/26/20 23 naloxone (NARCAN) 0.4 mg/mL injection 0.04-0.4 mg 1 09/01/2023 ondansetron (ZOFRAN) injection 4 mg 1 09/01 Carrier Fluids for Secondary Infusion - 0.9% Sodium Chloride 3 08/31/2023 08/23/2023 ciprofloxacin (CIPRO) tablet 500 mg 1 08/31 dextrose 5% infusion 1 08/31/2023 immune globulin (GAMUNEX-C,G AMMAKED) 10 % infusion 25 g 1 08/31/2023 lidocaine PF (XYLOCAINE) 10 mg/mL (1 %) preservative free injection 10-20 mg 1 08/31/2023 magnesium sulfate 2 g/50 mL in water (premix) 2 g 1 08/31/2023 polyethylene glycol (GoLYTEL Y) solution 2,000 mL 2 08/31/2023 08/26/2023 sodium chloride 0.9% flush 5-10 mL 1 2022 sodium chloride 0.9% flush 5-20 mL 1 2022 furosemide (LASIX) 10 mg/mL injection 60 mg 4 08/30/2023 08/26/2023 calcium gluconate 3 g in sod ium chloride 0.9% 100 mL IVPB 1 08/28/2023 furosemide (LASIX) 10 mg/mL injection 80 mg 1 08/28/2023 potassium chloride ER (KLOR- CON) extended release tablet 20 mEq 1 08/28/2023 potassium chloride ER (KLOR- CON) extended release tablet 40 mEq 2 08/28/2023 08/23/2023 sodium phosphate - potassium phosphate (K-PHOS NEUTRAL) tablet 250 mg 1 08/28/2023 calcium gluconate 2 g/100 mL in sodium chloride (premix) solution 2 g 1 08/27/2023 magnesium oxide (MAG-OX) tablet 400 mg 1 tacrolimus immediate-release capsule 0.5 mg 3 08/27/2023 08/23/2023 gadoterate meglumine injection 13 mL 1 08/02 metroNIDAZOLE (FLAGYL) tablet 500 mg 1 08/02 furosemide (LASIX) 10 mg/mL injection 40 mg 2 08/25/2023 08/24/2023 vancomycin 1500 mg/515 mL in sodium chloride 0.9% (premix) 1,500 mg 1 08/25/2023 budesonide (PULMICORT) 0.5 m g/2 mL nebulizer solution 0.5 mg 2 08/24/2023 08/23/2023 foscarnet (FOSCAVIR) 3,900 m g in sodium chloride 0.9% 325 mL (12 mg/mL) IVPB 1 08/24/2023 perflutren protein-a (OPTISO N) 3 mL in sodium chloride 0.9% 8 mL syringe 1 08/24/2023 piperacillin-tazobactam (ZOS YN) 4.5 gram/120 mL in sodium chloride 0.9% (premix) 4.5 g 1 08/24/2023 valGANciclovir (VALCYTE) tablet 900 mg 1 acetaminophen (TYLENOL) tablet 650 mg 1 enoxaparin (LOVENOX) syringe 40 mg 1 2022 heparin 10 unit/mL flush 20-50 Units 1 08/02 heparin 10 unit/mL flush 50 Units 1 023 heparin 100 unit/mL injection 500 Units 1 1 magnesium sulfate 4 g/100 mL in water (premix) 4 g 1 08/23/2023 magnesium sulfate 6 g in sod ium chloride 0.9% 250 mL IVPB 1 08/23/2023 maribavir (LIVTENCITY) tablet 400 mg 1 08/02 ondansetron (ZOFRAN) injection 8 mg 1 08/23 ondansetron (ZOFRAN) tablet 8 mg 1 08/23/20 piperacillin-tazobactam (ZOS YN) 3.375 gram/65 mL in sodium chloride 0.9% (premix) 3.375 g 1 08/23/2023 sodium chloride 0.9% flush 10 mL 1 08/23/20 sodium phosphate - potassium phosphate (K-PHOS NEUTRAL) tablet 500 mg 1 08/23/2023 ursodioL (ACTIGALL) capsule 600 mg 1 2022 vancomycin 1,000 mg/200 mL i n dextrose 5% (premix) 1,000 mg 1 08/23/2023 vancomycin 1,250 mg/262.5 mL in sodium chloride 0.9% (premix) 1,250 mg 1 08/23/2023 Lab Orders Without Results [...] documented as of this encounter Care Teams Legal Administrator Relationship Specialty Start Date End Date Beka Nick MD [address] [place] [address] PCP - General Family Practice 05/31/23 04/25/24 Amber Montesinos, SHAILESH Pr Manager Transplant 11/17/19 Jil Duncan MD Consulting Physician Infectious Diseases 01/10/20 Anita Gillespie MD Medical Oncologist/Inspector Multifocal Lens Medical Oncology 10/07/20 Tabitha Hurley MD [address] [place] [address] Consulting Physician Rheumatology 10/22/21 Massiel Gastelum MD [address] [place] [address] Consulting Physician Otolaryngology 08/27/22 documented as of this encounter
--- OUTSIDE RECORDS SUMMARY | 2024-10-28 06:09 | XMS_ITS | Encounter Summary ---
Author Organization [facility] Address [address] [place] [address] Phone Care Team Providers Care Campaign Specialist Name Role Phone Amber Montesinos RN Unavailable [phone] Jil Duncan MD Unavailable [phone] Anita Gillespie MD Unavailable [phone] Tabitha Hurley MD Unavailable [phone] Massiel Gastelum MD Unavailable [phone] Beka Nick MD Primary Care Provider [phone] Encounter Details Date Type Department Care Team (Late st Contact Info) Description 08/23/2023 Documentation [facility] [address] [facility] Advanced Medicine 7th [place] [address] [place] [address] Lesvia Crenshaw RN Social History [...] on file 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 Infectious disease contacted transplant (liver) team and Dr. Gillespie (PTLD) to discuss admission concern for disease recurrence. Dr. Gillespie recommending admission and CT neck, chest, abdomen, and pelvis to be done prior to admission along with labs and blood cultures (pending) to expedite work up and possible treatment. Orders placed. Scheduled for 3 pm at [facility]. Admission pending for call with bed. Patient and mother aware of plan. documented in this encounter Plan of Treatment Scheduled Procedures Name Priority Associated Diagnoses Date/Ti me COLONOSCOPY Encounter for screening for colorectal cancer in high risk patient Family history of rectal cancer documented as of this encounter Visit Diagnoses Not on filedocumented in this encounter Care Teams Campaign Specialist Relationship Specialty Start Date End Date Beka Nick MD [address] [facility] [address] [place] [address] PCP - General Family Practice 05/31/23 04/25/24 Amber Montesinos, SHAILESH Excellence Specialist Transplant 11/17/19 Jil Duncan MD Consulting Physician Infectious Diseases 01/10/20 Anita Gillespie MD Medical Oncologist/Drop Forger Helper Medical Oncology 10/07/20 Tabitha Hurley MD [address] [place], [place] [id number] Consulting Physician Rheumatology 10/22/21 Massiel Gastelum MD [address] [place] [address] Consulting Physician Otolaryngology 08/27/22 documented as of this encounter
--- OUTSIDE RECORDS SUMMARY | 2024-10-28 06:09 | XMS_ITS | Encounter Summary ---
Author Organization [facility] Address [address] [place] [address] Phone Care Team Providers Care Case Hardener Name Role Phone Amber Montesinos RN Unavailable [phone] Jil Duncan MD Unavailable [phone] Anita Gillespie MD Unavailable [phone] Tabitha Hurley MD Unavailable [phone] Massiel Gastelum MD Unavailable [phone] Adi Nick MD Primary Care Provider [phone] Encounter Details Date Type Department Care Team (Late st Contact Info) Description 08/27/2023 9:30 AM CDT Ancillary Procedure [facility] Vascular Lab IP [address] [facility] [address] [place] [address] Social History Tobacco Use Types [...] on file 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 Gender Identity Not on file Sexual Orientation Straight 08/22/2021 9: 23 AM CDT documented as of this encounter Plan of Treatment Scheduled Procedures Name Priority Associated Diagnoses Date/Ti me COLONOSCOPY Encounter for screening for colorectal cancer in high risk patient Family history of rectal cancer documented as of this encounter Procedures Procedure Name Priority Date/Time Associated Diagnosis Comments US VEIN DUPLEX UPPER EXTREMITY LEFT LIMITED IP Routine 08/27/2023 1:24 PM CDT documented in this encounter Results * US Vein Duplex Upper Extremity Left Limited, Unilateral (08/27/2023 1:24 PM CDT) Anatomical Region Laterality Modality Vascular Left Ultrasound 08/27/2023 1:53 PM CDT Narrative 08/28/2023 7:13 AM CDT [facility] - Department of Vascular Surgery, Vascular Laboratory [address] [place] [address] Upper Extremity Venous Ultrasound Report Patient Name: ADI NICHOLS J : 1995 (28y 6m) Study Date: 08/27/2023 1:53:38 PM Gender: M Tech: Location: [id number] Ref.Provider: PAOLA AMK Quality: Adequate Order Provider: PAOLA MAK Procedures: Vascular Report: Venous Duplex imaging was performed in the left upper extremity. The internal jugular, subclavian and axillary veins were evaluated for patency, spontaneity and phasicity with Doppler, compression and augmentation maneuvers. The brachial, basilic and cephalic veins were also evaluated with compression maneuvers. Indications: edema. Findings: Performing Hydraulic Bull Riveter Operator: Shannan Oviedo RVT. Left: Venous Doppler signals [...] above. Electronically Signed By: Severino Pickett MD [facility] 2023-08-28 07:13:33 CDT CC: CC: Procedure Note Severino Pickett MD - 08/28/2023 [facility] - Department of Vascular Surgery,Vascular Laboratory [address] [place] [address] Upper Extremity Venous Ultrasound Report Patient Name: ADI NICHOLS JPatient ID: [id number] : 1995 (28y 6m)Study Date: 08/27/2023 1:53:38 PM Gender: MAccession #: [id number] Tech: DRLocation: [id number] Ref.Provider: PAOLA MAKQuality: Adequate Order Provider: PAOLA MAK Procedures: Vascular Report: Venous Duplex imaging was performed in the left upper extremity. Theinternal jugular, subclavian and axillary veins were evaluated for patency, spontaneity andphasicity with Doppler, compression and augmentation maneuvers. The brachial, basilic andcephalic veins were also evaluated with compression maneuvers. Indications: edema. Findings: Performing Hydraulic Bull Riveter Operator: Shannan Oviedo RVT. Left: Venous Doppler signals [...] above. Electronically Signed By: Severino Pickett MD [facility] 2023-08-28 07:13:33 CDT CC: CC: Paola Verdugo MD IMG US PROCEDURES Final Result documented in this encounter Visit Diagnoses Not on filedocumented in this encounter Additional Health Concerns Infection Onset Date Last Indicated Resolved Time Rhino/Enterovirus Comment:08/31/2023 IP Review: symptoms improved per current RN, afebrile off of antipyretics. OK to come off rhino/enterovirus precautions. Adriane Herrera RN 08/25/2023 08/25/20232022 2:08 PM CDT documented as of this encounter Care Teams Case Hardener Relationship Specialty Start Date End Date Adi Nick MD [address] [place] [address] PCP - General Family Practice 05/31/23 04/25/24 Amber Montesinos, RN Probe Operator Transplant 11/17/19 Jil Duncan MD Consulting Physician Infectious Diseases 01/10/20 Anita Gillespie MD Medical Oncologist/Chromosomal Disorders Counselor Medical Oncology 10/07/20 Tabitha Hurley MD [address] [place] [address] Consulting Physician Rheumatology 10/22/21 Massiel Gastelum MD [address] [place] [address] Consulting Physician Otolaryngology 08/27/22 documented as of this encounter
--- OUTSIDE RECORDS SUMMARY | 2024-10-28 06:09 | XMS_ITS | Encounter Summary ---
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) Jaundice Fever Abdominal swelling Procedures CT Neck Soft Tissue W Contrast Anita Gillespie MD [address] [facility] [address] [place] [address] Phone: tel: fax: [address] [phone] Referral ID Status Reason Start Date Expiration Date Visits Re quested Visits Authorized [id number] Closed 08/23/2023 09/21/2024 1 1 Reason for Visit * Auth/Cert Specialty Diagnoses / Procedures Referred By Contac t Referred To Contact Diagnoses Multiple myeloma (HCC) Procedures na Referral ID Status Reason Start Date Expiration Date Visits Re quested Visits Authorized [id number] 1 1 Encounter Details Date Type Department Care Team (Latest Contact Info) Description 08/23/2023 1:29 PM CDT - 08/23/2023 11:59 PM CDT Hospital Encounter [facility] [address] [place] [address] Anita Gillespie MD [address] [facility] [address] [place] [address] 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) Discharge Disposition: Discharge to home [...] on file 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 4000 mL 09/03/2023 3 acetaminophen (TYLENOL) 500 mg tablet Take 2 tablets (1,000 mg total) by mouth every 6 (six) hours as needed for pain 30 tablet 1 08/28/2022 3 budesonide (PULMICORT) 0.5 mg/2 mL nebulizer solution Take 0.5 mg by nebulization daily Rinse mouth with water after use. Do not swallow. 4 ciprofloxacin (CIPRO) 750 mg tablet Take 1 tablet (750 mg total) by mouth 2 (two) times a day for 3 days 6 tablet 09/03/2023 3 furosemide (LASIX) 40 mg tablet Take 1 [...] while on foscarnet 14 tablet 09/03/2023 4 maribavir (LIVTENCITY) 200 mg tablet Take 2 tablets (400 mg total) by mouth 2 (two) times a day 28 tablet 06/04/2023 3 maribavir (LIVTENCITY) 200 mg tablet Take 2 tablets (400 mg total) by mouth 2 (two) times a day 120 tablet 5 06/04/2023 3 spironolactone (ALDACTONE) 100 mg tablet Take 1 tablet (100 mg total) by mouth daily 30 tablet 11 09/04/2023 3 tacrolimus (PROGRAF) 0.5 mg immediate-releas e capsuleIndicatio ns:Prevention of Liver Transplant Rejection Take 1 capsule (0.5 mg total) by mouth every other day 15 capsule 11 07/28/2023 3 tacrolimus 0.5 mg immediate-releas e capsuleIndicatio ns:Prevention of Liver Transplant Rejection Take 1 capsule (0.5 mg total) by mouth daily 30 capsule 09/03/2023 3 traZODone (DESYREL) 50 mg tablet Take 1 tablet (50 mg total) by mouth nightly 30 tablet 2 12/03/2022 3 ursodioL (ACTIGALL) 300 mg capsuleIndicatio ns:Cholelithiasi [...] Priority Date/Time Associated Diagnosis Comments CT CHEST ABDOMEN PELVIS W CONTRAST Schedule ZAHRA, Read ZAHRA (Appt Today, Awaiting Results) 08/23/2023 2:55 PM CDT 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) CT SOFT TISSUE NECK W CONTRAST Schedule ZAHRA, Read ZAHRA (Appt Today, Awaiting Results) 08/23/2023 2:55 PM CDT 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) documented in this encounter Results * CT Neck Soft Tissue W Contrast (08/23/2023 2:55 PM CDT) Anatomical Region Laterality Modality Head and Neck N/A Computed Tomogra phy 08/23/2023 4:43 PM CDT Impressions 08/23/2023 5:15 PM CDT Redemonstrated findings of multistation diffuse cervical lymphadenopathy 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 ??Please refer to concurrent CT chest for dedicated chest findings. Dictated by: Morgan Corrales MD The radiology attending physician has personally reviewed this study, and had reviewed and/or edited this written report and agrees with it. Electronically signed by: Karli Blount M.D. Narrative 08/23/2023 5:15 PM CDT EXAMINATION: CT of the neck with contrast [...] are normal. The limited view of the [place] is unremarkable. The visualized portions of the orbits are normal. There is near complete opacification of the left maxillary sinus with mild mucosal thickening of the right maxillary, ethmoid, and sphenoid sinuses. There is straightening of the cervical spine with reversal of the normal cervical lordosis. 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 ??The spinal canal is normal in caliber. Intervertebral disk heights are normal. Neural foramina are normal. For further evaluation of the thorax, see same day chest CT 08/23/2023, including new patchy opacities of the right lung. ?? Procedure Note Sven Blount, Karli Field MD - 08/23/2023 EXAMINATION: CT of the neck with contrast [...] are normal. The limited view of the [place] is unremarkable. The visualized portions [...] new patchy opacities of the right lung. 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 Please refer to concurrent CT chest for dedicated chest findings. Dictated by: Morgan Corrales MD The radiology attending physician has personally reviewed this study, and had reviewed and/or edited this written report and agrees with it. Electronically signed by: Karli Blount M.D. us Anita Gillespie MD IMG CT PROCEDURES Final Re sult * CT Chest Abdomen Pelvis W Contrast (08/23/2023 2:55 PM CDT) Anatomical Region Laterality Modality Body N/A Computed Tomogra phy 08/23/2023 3:38 PM CDT Impressions 08/23/2023 3:38 PM CDT 1. Extensive lymphadenopathy above and below the diaphragm compatible with known post-transplant lymphoproliferative disorder. ?? While a right axillary and left inguinal lymph node have increased in size from 07/09/2022, the majority of lymph nodes are either stable or slightly decreased in size to prior. 2. ??New peribronchovascular opacities within the right lung which are favored to be infectious/inflammatory, possibly related to organizing pneumonia. 3. ??New wall thickening of the ascending colon and terminal ilium compatible with enterocolitis which is nonspecific but may be infectious or inflammatory. 4. Stable postsurgical changes of liver transplant. Electronically signed by: Jadyn Beasley M.D. Narrative 08/23/2023 3:38 PM CDT EXAMINATION: CT CHEST ABDOMEN PELVIS W CONTRAST HISTORY: 28 year-old male with history of refractory ITP status post splenectomy, autoimmune hepatitis status post liver transplant in 2019 complicated by PTLD status post chemotherapy who now presents with concern for disease recurrence. TECHNIQUE: Transaxial computed tomographic images of the chest, abdomen, and pelvis were obtained after the administration of Optiray 350 125 mL according to standard protocol. COMPARISON: 07/09/2022 FINDINGS: Extensive lymphadenopathy above the diaphragm involving the bilateral axillary, confluent mediastinal, and supraclavicular lymph node stations. ??Although a right axillary lymph node has slightly increased in size and now measures approximately 2.2 cm, previously 1.8 cm (series 2, image 36), many lymph nodes appear slightly decreased in size when compared to 07/09/2022. ??For reference, a left axillary lymph node now measures approximately 2.3 cm when remeasured in a similar fashion, previously 2.6 cm (series 2, image 36). ??A paratracheal lymph node now measures approximately 1.3 cm, previously 1.6 cm (series 2, image 41). The thyroid gland is normal. The thoracic aorta is normal in caliber. Unchanged cardiomegaly. ??No pericardial effusion. New peribronchovascular opacities involving the right upper, middle, and lower lobes with associated air bronchograms. ??Trace right pleural effusion. ??No pneumothorax. ??No endobronchial mass within the central airways. Postsurgical changes of liver transplant. ??No suspicious liver lesion. ??There is mild pneumobilia. ??The portal and superior mesenteric veins are patent. ??The abdominal aorta is normal in caliber. Extensive lymphadenopathy below the diaphragm with innumerable enlarged lymph nodes throughout the retroperitoneum, mesentery, bilateral iliac chains, and bilateral inguinal regions. ??There has been slight interval increase in size of an enlarged left inguinal lymph node which now measures approximately 2.0 cm in short axis, previously 1.5 cm (series 2, image 271). ??There has been decrease in size of a right periaortic lymph node which now measures approximately 1.3 cm, previously 2.0 cm (series 2, image 165). ??Other lymph nodes appear not significantly changed when compared to prior. For reference, a left periaortic lymph node measures approximately 1.9 cm, previously 1.9 cm (series 2, image 157). The spleen is surgically absent. ??The pancreas is normal. ??The left adrenal gland is normal. ??The right adrenal gland is not visualized. The kidneys enhance symmetrically. ??No hydronephrosis or renal calculi. There is new wall thickening of the ascending colon with associated mucosal enhancement and submucosal edema. ??Unchanged dilation of the hepaticojejunal limb. ??No bowel obstruction. ??No free air. ??There is diffuse soft tissue stranding throughout the mesentery. ??No ascites. The bladder is decompressed. ??The prostate gland is normal. No suspicious osseous lesions. 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 Procedure Note Jadyn Beasley MD - 08/23/2023 EXAMINATION: CT CHEST ABDOMEN PELVIS W CONTRAST HISTORY: 28 year-old male with history of refractory ITP status post splenectomy, autoimmune hepatitis status post liver transplant in 2019 complicated by PTLD status post chemotherapy who now presents with concern for disease recurrence. TECHNIQUE: Transaxial computed tomographic images of the chest, abdomen, and pelvis were obtained after the administration of Optiray 350 125 mL according to standard protocol. COMPARISON: 07/09/2022 FINDINGS: Extensive lymphadenopathy above the diaphragm involving the bilateral axillary, confluent mediastinal, and supraclavicular lymph node stations. Although a right axillary lymph node has slightly increased in size and now measures approximately 2.2 cm, previously 1.8 cm (series 2, image 36), many lymph nodes appear slightly decreased in size when compared to 07/09/2022. For reference, a left axillary lymph node now measures approximately 2.3 cm when remeasured in a similar fashion, previously 2.6 cm (series 2, image 36). A paratracheal lymph node now measures approximately 1.3 cm, previously 1.6 cm (series 2, image 41). The thyroid gland is normal. The thoracic aorta is normal in caliber. Unchanged cardiomegaly. No pericardial effusion. New peribronchovascular opacities involving the right upper, middle, and lower lobes with associated air bronchograms. Trace right pleural effusion. No pneumothorax. No endobronchial mass within the central airways. Postsurgical changes of liver transplant. No suspicious liver lesion. There is mild pneumobilia. The portal and superior mesenteric veins are patent. The abdominal aorta is normal in caliber. Extensive lymphadenopathy below the diaphragm with innumerable enlarged lymph nodes throughout the retroperitoneum, mesentery, bilateral iliac chains, and bilateral inguinal regions. There has been slight interval increase in size of an enlarged left inguinal lymph node which now measures approximately 2.0 cm in short axis, previously 1.5 cm (series 2, image 271). There has been decrease in size of a right periaortic lymph node which now measures approximately 1.3 cm, previously 2.0 cm (series 2, image 165). Other lymph nodes appear not significantly changed when compared to prior. For reference, a left periaortic lymph node measures approximately 1.9 cm, previously 1.9 cm (series 2, image 157). The spleen is surgically absent. The pancreas is normal. The left adrenal gland is normal. The right adrenal gland is not visualized. The kidneys enhance symmetrically. No hydronephrosis or renal calculi. There is new wall thickening of the ascending colon with associated mucosal enhancement and submucosal edema. Unchanged dilation of the hepaticojejunal limb. No bowel obstruction. No free air. There is diffuse soft tissue stranding throughout the mesentery. No ascites. The bladder is decompressed. The prostate gland is normal. No suspicious osseous lesions. Unchanged near complete osseous fusion of the lower lumbosacral spine. IMPRESSION: 1. Extensive lymphadenopathy above and below the [...] of liver transplant. Electronically signed by: Jadyn Beasley M.D. 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) documented in this encounter Administered Medications Inactive Administered Medications - up to 3 most recent administrations Medication Order MAR Action Action Date Dose Rate Site ioversoL (OPTIRAY 350) injection 100 mL 100 mL, intravenous, Once in imaging, contrast, Starting on 08/23/23 at 1446, For 1 dose Contrast Given 08/23/2023 2:50 PM CDT 90 mL ioversoL (OPTIRAY 350) injection 50 mL 50 mL, intravenous, Once in imaging, contrast, Starting on 08/23/23 at 1446, For 1 dose Contrast Given 08/23/2023 2:50 PM CDT 35 mL documented in this encounter Care Teams Afternoon Nanny Relationship Specialty Start Date End Date Beka Nick MD [address] [place] [address] PCP - General Family Practice 05/31/23 04/25/24 Amber Montesinos, SHAILESH Sewing Trimmer Transplant 11/17/19 Jil Duncan MD Consulting Physician Infectious Diseases 01/10/20 Anita Gillespie MD Medical Oncologist/Community Service Coordinator Medical Oncology 10/07/20 Tabitha Hurley MD [address] [place], [place] [id number] Consulting Physician Rheumatology 10/22/21 Massiel Gastelum MD [address] [place] [address] Consulting Physician Otolaryngology 08/27/22 documented as of this encounter
--- OUTSIDE RECORDS SUMMARY | 2024-10-28 06:09 | XMS_ITS | Encounter Summary ---
Author Organization [facility] Address [address] [place] [address] Phone Care Team Providers Care Bi Data Modeler Name Role Phone Amber Montesinos RN Unavailable [phone] Jil Duncan MD Unavailable [phone] Anita Gillespie MD Unavailable [phone] Tabitha Hurley MD Unavailable [phone] Massiel Gastelum MD Unavailable [phone] Beka Nick MD Primary Care Provider [phone] Reason for Visit * Reason Comments Follow-up Encounter Details Date Type Department Care Team (Latest Contact Info) Description 08/23/2023 10:00 AM CDT Office Visit [facility] Infectious Diseases [address] [place] [address] [address] [place] [address] Lisandra Auguste, AIDEN [address] [place] [address] Cytomegalovirus infection, unspecified cytomegaloviral infection type (HCC) (Primary Dx); Encounter for screening examination for sexually transmitted disease Social History Tobacco Use Types Packs/Day Years [...] on file 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 Gender Identity Not on file Sexual Orientation Straight 08/22/2021 9: 23 AM CDT documented as of this encounter Last Filed Vital Signs Vital Sign Reading Time Taken Comments Blood Pressure 138/80 08/23/2023 9:45 AM CDT Pulse 79 08/23/2023 9:45 AM CDT Temperature 36.9 ??C (98.4 ??F) 08/23/2023 9:45 AM CD T Respiratory Rate - - Oxygen Saturation - - Inhaled Oxygen Concentration - - Weight 66.2 kg (146 lb) 08/23/2023 9:45 AM CDT Height 172 cm (5' 7.72 ) 08/23/2023 9:45 AM CDT Body Mass Index 22.39 08/23/2023 9:45 AM CDT documented in this encounter Progress Notes * Lisandra Auguste, AIDEN - 08/23/2023 10:00 AM CDT Infectious Diseases Return Visit Patient Name: Beka Nichols [facility] INFECTIOUS DISEASES [address] [place] [id number] Subjective Chief complaint of CMV viremia HPI: [...] [place] [address]. He was also noted to have lymphadenopathy [...] levels starting 06/20/22. He was admitted to [facility] 07/09-07/12/22 due to persistent CMV viremia while on marabovir along with 2 week history of cough, fevers, chills, fatigue/malaise. RVP positive for rhinovirus and adenovirus. CMV resistance testing obtained which showed resistance to maribavir. This was discontinued on 07/16/23and he was restarted on Valcyte 900 mg PO BID. CMV levels at OSH on 11/14/22 [place] [address]. Reached out to patient and it seemed he had been off Valcyte. Restarted therapy that day. He continued to have CMV viremia and on 04/28/23 his valganciclovir was discontinued when resitance testing showed CMV mutation indicating resitance to ganciclovir. He was started on maribavir 400 mg PO BID on 04/28/23. Interval History: Patient presents to ID clinic today for routine follow up. He remains on PO valcyte at treatment dose with 900 mg PO BID. He reports overall feeling well with no acute concerns. He was seen by ENT earlier today with endoscopy with findings of mildly edematous nasal mucosa with thick mucous. Cultures were taken. He was given a prescription for steroids which he will start later today. He does report some intermittent diarrhea but no watery diarrhea or abdominal pain. No vision changes. Continuesto have some sinus pressure and pain along with some sinus headaches. He does have some enlarged cervical lymph nodes that are not tender and are unchanged for many months. No new lymph node swelling. ROS: Review of Systems Constitutional: Positive for fatigue and fever. Negative for activity change, appetite change, chills, diaphoresis and unexpected weight change. Eyes: Negative for photophobia, redness and visual disturbance. Cardiovascular: Positive for leg swelling. Gastrointestinal: Positive for abdominal distention and diarrhea (intermittent). Negative for abdominal pain, nausea and vomiting. Musculoskeletal: Negative for arthralgias [...] Immunocompromised patient (HCC) Community acquired pneumonia Lymphadenopathy [facility] current use of immunosuppressive drug 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HCC) Fever Elevated LFTs On antiviral therapy Myalgia Muscle weakness Chronic pansinusitis Immunocompromised (HCC) Subcutaneous nodule of right lower extremity Eustachian tube dysfunction, bilateral Allergies: Patient has no known allergies. HOME MEDICATIONS : acetaminophen (TYLENOL) 500 mg [...] Laboratory: Lab Results Component Value Date WBC 12.4 (H) 08/23/2023 HGB 11.9 (L) 08/23/2023 HCT 33.8 (L) 08/23/2023 MCV 105.3 (H) 08/23/2023 LABPLAT 276 08/23/2023 Lab Results Component Value Date GLUCOSE 120 08/23/2023 CALCIUM 8.3 (L) 08/23/2023 SODIUM 141 08/23/2023 POTASSIUM 3.7 08/23/2023 CO2 23 08/23/2023 CHLORIDE 111 (H) 08/23/2023 BUNSER 9 08/23/2023 CREATININE 0.81 08/23/2023 Lab Results Component Value Date ALT 67 (H) 08/23/2023 AST 90 (H) 08/23/2023 ALKPHOS 263 (H) 08/23/2023 BILITOT 4.3 (H) 08/23/2023 Assessment/Plan 28 y.o. male with history of [...] 400 mg PO BID with continued viremia. Cytomegalovirus infection (CMS/HCC) - Continued CMV viremia despite maribavir with [...] have CT prior to admission per oncology Follow up: - to be determined based on inpatient stay Visit Diagnosis: 1. Cytomegalovirus infection, unspecified cytomegaloviral infection type (HCC) 2. Encounter for screening examination for sexually transmitted disease Lisandra Ramirez the Nurse Practitioner, have reviewed and examined this patient with thesupervising MD present in the office suite, Dr. Duncan. Cosigned by Jil Duncan MD at 08/23/2023 4:09 PM CDT Associated attestation - Jil Duncan MD - 08/23/2023 4:09 PM CDT I have seen and examined the patient. I agree with the findings and plan of care as documented in the CENTRAL SERVICE TECH's note. 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 He has been through multiple cycles of Valgan -> IV Ganciclovir . Early this year his CMV viral load reached 17070 (4 log) while on Valgan with some transaminitis (? auto immune hepatitis) . We switched to Maribavir and it came down to 362 (2.5log) in June but now back to 3030 IU/ml (3.48 log). 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 Today he reports intermittent fevers for past 2 weeks, abdominal distension and jaundice. Will discuss with Oncology and hepatology teams and recommend inpatient work up for possible intercurrent infection, CMV disease , rejection or relapse of PTLD. Labs and CT imaging requested. documented in this encounter Miscellaneous Notes * Assessment & Plan Note - Lisandra Auguste NP - 08/23/2023 2:59 PM CDT Associated Problem(s): Cytomegalovirus infection (HCC) - Continued CMV viremia despite maribavir with [...] have CT prior to admission per oncology documented in this encounter Plan of Treatment Scheduled Procedures Name Priority Associated Diagnoses Date/Ti me COLONOSCOPY Encounter for screening for colorectal cancer in high risk patient Family history of rectal cancer documented as of this encounter Procedures Procedure Name Priority Date/Time Associated Diagnosis Comments CYTOMEGALOVIRUS (CMV) DNA, QUANT GEN LAB Routine 08/23/2023 10:41 AM CDT Encounter for screening examination for sexually transmitted disease Cytomegalovirus infection, unspecified cytomegaloviral infection type (HCC) BLOOD CULTURE Routine 08/23/2023 10:24 AM CDT Encounter for screening examination for sexually transmitted disease Cytomegalovirus infection, unspecified cytomegaloviral infection type (HCC) GLUCOSE, RANDOM (OUTREACH) Routine 08/23/2023 10:21 AM CDT Encounter for screening examination for sexually transmitted disease Cytomegalovirus infection, unspecified cytomegaloviral infection type (HCC) EGFR Routine 08/23/2023 10:21 AM CDT Encounter for screening examination for sexually transmitted disease Cytomegalovirus infection, unspecified cytomegaloviral infection type (HCC) COMPREHENSIVE METABOLIC PANEL WITHOUT GLUCOSE (OUTREACH) Routine 08/23/2023 10:21 AM CDT Encounter for screening examination for sexually transmitted disease Cytomegalovirus infection, unspecified cytomegaloviral infection type (HCC) COMPREHENSIVE METABOLIC PANEL (OUTREACH) Routine 08/23/2023 10:21 AM CDT Encounter for screening examination for sexually transmitted disease Cytomegalovirus infection, unspecified cytomegaloviral infection type (HCC) CBC WITH AUTO DIFFERENTIAL Routine 08/23/2023 10:21 AM CDT Encounter for screening examination for sexually transmitted disease Cytomegalovirus infection, unspecified cytomegaloviral infection type (HCC) MANUAL DIFFERENTIAL Routine 08/23/2023 1 0:21 AM CDT Encounter for screening examination for sexually transmitted disease Cytomegalovirus infection, unspecified cytomegaloviral infection type (HCC) BLOOD CULTURE Routine 08/23/2023 10:20 AM CDT Encounter for screening examination for sexually transmitted disease Cytomegalovirus infection, unspecified cytomegaloviral infection type (HCC) documented in this encounter Results * (ABNORMAL) Cytomegalovirus (CMV) DNA PCR, quantitative Blood (08/23/2023 10:41 AM CDT) CMV DNA Detected( A) [facility] Comment: Interpretive Data: The quantifiable range of this assay is 34 IUnits/mL to 10,000,000 IUnits/mL (1.53 log IUnits/mL to 7.0 log IUnits/mL). Testing was performed by the NIA 6800 CMV Test ([employer] Testing performed at [facility]. Current interpretive data was last revised on 2021. CMV DNA IU/mL 2,890 IUnits/mL [facility] CMV DNA log IU/mL 3.46 log IUnits/mL [facility] Blood 08/23/2023 10:4 1 AM CDT 08/23/2023 1:13 PM CDT us Lisandra Auguste CENTRAL SERVICE TECH LAB MICROBIOLOGY - GENERA L ORDERABLES Final Result [facility] [place] [address] * (ABNORMAL) Blood culture Blood Antecubital, left (08/23/2023 10:24 AM CDT) Pathologist [facility] Direct Specimen Exam Stain: Gram Negative Bacilli Time to culture positivity (aerobic media): 9.4 hours Notification of: Gram Negative Bacilli called to and read back by: Dr. David Saab ([phone]) on 08/24/2023 01:02:42 by: Сергей Matias MT [facility] Report Final Report: Escherichia coli (.) [facility] Organism ESCHERICHIA COLI [facility] Blood (Antecubital, left) 08/23/2023 10:24 AM CDT 08/23/2023 2:01 PM CDT Narrative [facility] - 08/28/2023 8:03 AM CDT 1. ?Blood cultures are incubated for 4 [...] organism identification may be performed using the [employer] Gram-Positive Blood Culture Assay. This assay detects microbial DNA in positive blood culture broth via hybridization of target DNA to capture oligonucleotides on a microarray. This assay has been cleared by the [place] Food and Drug Administration and its performance characteristics have been verified by the [facility] Microbiology Laboratory. 5. ?For questions about this culture, contact the Microbiology Laboratory at [phone]. Interpretive data was last revised on 2020. Organism Antibiotic Method Susceptibility Escherichia coli Ampicillin INTERPRETATION Susceptible Escherichia coli Cefazolin INTERPRETATION Susceptible Escherichia coli Gentamicin INTERPRETATION Susceptible Escherichia coli Ampicillin with Sulbactam INTERPRETAT ION Susceptible Escherichia coli Trimethoprim with Sulfamethoxazole IN TERPRETATION Susceptible Escherichia coli Meropenem INTERPRETATION Susceptible Escherichia coli Cefepime INTERPRETATION Susceptible Escherichia coli Ciprofloxacin INTERPRETATION Susceptible Escherichia coli Ceftazidime INTERPRETATION Susceptible Escherichia coli Ceftriaxone INTERPRETATION Susceptible Escherichia coli Piperacillin/Tazobactam INTERPRETATIO N Susceptible us Lisandra Auguste NP LAB MICROBIOLOGY - GENERA L ORDERABLES Final Result [facility] [place] [address] * (ABNORMAL) Manual Differential (08/23/2023 10:21 AM CDT) Differential Manual [facility] Cells Counted 119 [facility] Neutrophil abs 7.3(H) 1.7 - 6.5 K/cumm [facility] Imm gran abs 0.1 0.0 - 0.1 K/cumm [facility] Lymphocyte abs 2.5 0.8 - 3.3 K/cumm [facility] Monocyte abs 1.8(H) 0.2 - 0.8 K/cumm [facility] Eosinophil abs 0.7(H) 0.0 - 0.5 K/cumm [facility] Neutrophil pct 58.8 % [facility] Comment: Interpretive Data Percent cell count reference ranges are not reported, since discordance with absolute values may lead to misinterpretation of CBC data. Current Interpretive Data was last revised on 2018. Lymphocyte pct 20.2 % [facility] Comment: Interpretive Data Percent cell count reference ranges are not reported, since discordance with absolute values may lead to misinterpretation of CBC data. Current Interpretive Data was last revised on 2018. Monocyte pct 14.3 % [facility] Comment: Interpretive Data Percent cell count reference ranges are not reported, since discordance with absolute values may lead to misinterpretation of CBC data. Current Interpretive Data was last revised on 2018. Eosinophil pct 5.9 % [facility] Comment: Interpretive Data Percent cell count reference ranges are not reported, since discordance with absolute values may lead to misinterpretation of CBC data. Current Interpretive Data was last revised on 2018. Myelocyte pct 0.8 % [facility] RBC morphology Present(A) [facility] Anisocytosis Marked(A) [facility] Poikilocytosis Marked(A) [facility] Microcytes 3-7/HPF(A) [facility] Macrocytes > 15/HPF(A) [facility] Schistocytes > 7/HPF [facility] Target cells 3-7/HPF(A) [facility] Acanthocytes 8-15/HPF(A) [facility] Echinocytes > 15/HPF(A) [facility] Platelet estimate Adequate [facility] Blood 08/23/2023 10:2 1 AM CDT 08/23/2023 1:15 PM CDT us Lisandra Auguste CENTRAL SERVICE TECH LAB BLOOD ORDERABLES Chata l Result Performing Organization Address City/[facility]/ZIP Co de Phone Number [facility] [place] [address] * eGFR (08/23/2023 10:21 AM CDT) eGFR >90 90 - 130 mL/min/1. 73 m2 [facility] Comment: Interpretive Data Reference Interval Normal [...] data was last reviewed 2021. Blood 08/23/2023 10:2 1 AM CDT 08/23/2023 1:06 PM CDT us Lisandra Auguste NP LAB BLOOD ORDERABLES Chata l Result Performing Organization Address City/[facility]/ZIP Co de Phone Number [facility] [place] [address] * Glucose, random (Outreach) (08/23/2023 10:21 AM CDT) Glucose 120 70 - 199 mg/dL [facility] Comment: Interpretive Data Fasting glucose >/= [...] interpretive data was last revised 2022. Blood 08/23/2023 10:2 1 AM CDT 08/23/2023 1:00 PM CDT Lisandra Auguste CENTRAL SERVICE TECH LAB BLOOD ORDERABLES Chata cuadra Result [facility] [place] [address] * (ABNORMAL) Comprehensive metabolic panel, without glucose (Outreach) (08/23/2023 10:21 AM CDT) Pathologist [facility] Sodium 141 135 - 145 mmol/L [facility] Potassium, pl 3.7 3.3 - 4.9 mmol/L [facility] Chloride 111(H) 97 - 110 mmol/L [facility] CO2 23 22 - 32 mmol/L [facility] Anion gap 7 2 - 15 mmol/L [facility] BUN 9 6 - 25 mg/dL [facility] Creatinine 0.81 0.80 - 1.30 mg/dL [facility] Calcium 8.3(L) 8.5 - 10.3 mg/dL [facility] Protein, pl 4.8(L) 6.5 - 8.5 g/dL [facility] Albumin 3.1(L) 3.5 - 5.0 g/dL [facility] Bilirubin, total 4.3(H) 0.1 - 1.2 mg/dL [facility] Alk phos 263(H) 40 - 130 Units/L [facility] AST 90(H) 10 - 50 Units/L [facility] ALT 67(H) 7 - 55 Units/L [facility] Blood 08/23/2023 10:2 1 AM CDT 08/23/2023 1:00 PM CDT us Lisandra Auguste CENTRAL SERVICE TECH LAB BLOOD ORDERABLES Chata cuadra Result [facility] [place] [address] * (ABNORMAL) CBC with auto differential (08/23/2023 10:21 AM CDT) [facility] WBC 12.4(H) 3.8 - 9.9 K/cumm [facility] Hgb 11.9(L) 13.0 - 17.5 g/dL [facility] Comment: Interpretive Data A reference range for this assay has not been established for patients with an unknown legal sex. Please refer to the laboratory test catalog for established sex-specific reference intervals. Current interpretive data was last revised on 2023. Hct 33.8(L) 38.9 - 50.3 % [facility] Comment: Interpretive Data A reference range for this assay has not been established for patients with an unknown legal sex. Please refer to the laboratory test catalog for established sex-specific reference intervals. Current interpretive data was last revised on 2023. Plt 276 150 - 400 K/cumm [facility] MPV 11.8 9.1 - 12.3 fL [facility] RBC 3.21(L) 4.30 - 5.80 M/cumm [facility] Comment: Interpretive Data A reference range for this assay has not been established for patients with an unknown legal sex. Please refer to the laboratory test catalog for established sex-specific reference intervals. Current interpretive data was last revised on 2023. MCV 105.3(H) 81.3 - 96.4 fL [facility] MCH 37.1(H) 27.1 - 33.3 pg [facility] MCHC 35.2 32.3 - 35.7 g/dL [facility] RDW CV 19.1(H) 11.1 - 14.9 % [facility] RDW SD 74.3(H) 35.7 - 48.1 fL [facility] NRBC abs 0.00 0.00 - 0.01 K/cumm [facility] Blood 08/23/2023 10:2 1 AM CDT 08/23/2023 1:00 PM CDT us Lisandra Auguste NP LAB BLOOD ORDERABLES Chata cuadra Result [facility] [place] [address] * (ABNORMAL) Blood culture Blood Antecubital, right (08/23/2023 10:20 AM CDT) Direct Specimen Exam Stain: Gram Negative Bacilli Time to culture positivity (aerobic media): 9.9 hours [facility] Report Final Report: Escherichia coli For susceptibility results, refer to accession number [id number] on the blood culture from 08/23/2023 (.) [facility] Organism ESCHERICHIA COLI [facility] Blood (Antecubital, right) 08/23/2023 10:20 AM CDT 08/23/2023 1:59 PM CDT Narrative [facility] - 08/28/2023 8:03 AM CDT 1. ?Blood cultures are incubated for 4 [...] performance characteristics have been verified by the [facility] Microbiology Laboratory. 5. ?For questions about this culture, contact the Microbiology Laboratory at [phone]. Interpretive data was last revised on 2020. Lisandra Auguste CENTRAL SERVICE TECH LAB MICROBIOLOGY - GENERA L ORDERABLES Final Result [facility] [place] [address] documented in this encounter Visit Diagnoses Diagnosis Cytomegalovirus infection, unspecified cytomegaloviral infection type (HCC)- Primary Encounter for screening examination for sexually transmitted disease documented in this encounter Care Teams Bi Data Modeler Relationship Specialty Start Date End Date Beka Nick MD [address] [place] [address] PCP - General Family Practice 05/31/23 04/25/24 Amber Montesinos RN Billet Inspector Transplant 11/17/19 Jil Duncan MD Consulting Physician Infectious Diseases 01/10/20 Anita Gillespie MD Medical Oncologist/Gastroenterology Teacher Medical Oncology 10/07/20 Tabitha Hurley MD [address] [place] [address] Consulting Physician Rheumatology 10/22/21 Massiel Gastelum MD [address] [place] [address] Consulting Physician Otolaryngology 08/27/22 documented as of this encounter
--- OUTSIDE RECORDS SUMMARY | 2024-10-28 06:09 | XMS_ITS | Encounter Summary ---
Author Organization [facility] Healthcare Address [address] [place] [address] Care Team Providers Care Second Operator Name Role Phone Amber Montesinos RN Unavailable [phone] Jil Duncan MD Unavailable [phone] Anita Gillespie MD Unavailable [phone] Tabitha Hurley MD Unavailable [phone] Massiel Gastelum MD Unavailable [phone] Beka Nick MD Primary Care Provider [phone] Reason for Visit * Auth/Cert Specialty Diagnoses / Procedures Referred By Contac t Referred To Contact Diagnoses Multiple myeloma (HCC) Procedures na Referral ID Status Reason Start Date Expiration Date Visits Re quested Visits Authorized [id number] 1 1 Encounter Details Date Type Department Care Team (Late st Contact Info) Description 09/01/2023 3:25 PM CDT - 09/01/2023 4:00 PM CDT Surgery [facility] [address] [place] [phone] Delia Ashby MD [facility] [address] [place] [address] COLON BIOPSY Surgery Details Date/Time Status Location OR Service Patient Class Case Class Case Type Trauma Case? 09/01/2023 3:25 PM Posted [facility] DD ENDOSCOPY DDCC Gastroenterology Inpatient Urgent - 24 hours Panel 1 Procedure LRB Anes Op Region Wound Class Comments COLON BIOPSY N/A Monitor Anesthesia Care Colon Surgeon Surgeon Role Service Panel Delia Ashby MD Primary Gastroenterology 1 [place] Berman MD Gastroenterology 1 documented in this encounter Social [...] file Legal Sex Male 6:28 AM MEDICAL COORDINATOR PESTICIDE USE Gender Identity Not on file Sexual Orientation Straight 08/22/2021 9: 23 AM CDT documented as of this encounter Last Filed Vital Signs Vital Sign Reading Time Taken Comments Blood Pressure 111/67 09/01/2023 2:00 PM CDT Pulse 91 09/01/2023 2:00 PM CDT Temperature 36.1 ??C (97 ??F) 09/01/2023 10:53 AM CDT Respiratory Rate 17 09/01/2023 2:00 PM CDT Oxygen Saturation 97% 09/01/2023 2:00 PM CDT Inhaled Oxygen Concentration - - Weight 72.6 kg (160 lb) 09/01/2023 10:53 AM CDT Height 172.7 cm (5' 8 ) 09/01/2023 10:53 AM CDT Body Mass Index 23.87 09/01/2023 10:53 AM CDT documented in this encounter Discharge Summaries * Tony Baca MD - 09/03/2023 3:16 PM CDT Inpatient Discharge Summary BRIEF OVERVIEW Admitting Provider: Delia Ashby MD Discharge Provider: No att. providers found Primary Care Physician at Discharge: Beka Nick MD [phone] Admission Date: 08/23/2023 Discharge Date: 09/03/2023 Admission Location: [facility] Problems/Diagnoses: Principal Problem (Resolved): Fever in [...] Home Health and Infusion Primary disciplines requested: [facility]: IV Catheter Maintenance Labs [...] hours with the foscarnet HYD Therapy Duration : 09/07 Physician to follow patient's care (the [...] headache, visual disturbances, weakness and speech changes [facility] [phone] *Provides and delivers home infusion medication *Please contact the pharmacy regarding delivery of antibiotics [facility] [phone] *Provides nursing, medication teaching, IV line dressing [...] 09/07/2023 To Be Determined Em Ruiz, SHAILESH [facility] None 09/08/2023 To Be Determined Parish Vyas, SHAILESH [facility] None 11/02/2023 To Be Determined Rosalio Montana RN [facility] None 01/05/2024 8:15 AM LAB, CAM 7 ONC ONC LAB CAM7 [facility] ONC LAB 01/05/2024 9:00 AM Nancy Butler NP ONC CAM7 [facility] Oncology 01/05/2024 9:30 AM [facility] TXP CAM 12B [facility] GASTRO 02/07/2024 8:40 AM Massiel Gastelum MD OY CLN L20 OY Contact Information for Follow-ups [facility] Home Care Services Specialty: Home Health and Hospice [address] [facility] [address] Next Steps: Follow up Questions: Service Line: Home Health and Infusion Primary disciplines requested: [facility]: IV Catheter Maintenance Labs [...] Practice, Family Medicine Relationship: PCP - General [address] [place] [address] Next Steps: Follow up CAL COORDINATOR PESTICIDE USE documented in this encounter Discharge Instructions * Discharge Instr - Other Orders* Briana Richter RN - 09/03/2023 1:37 PM CDT [facility] [phone] *Provides and delivers home infusion medication *Please contact the pharmacy regarding delivery of antibiotics [facility] [phone] *Provides nursing, medication teaching, IV line dressing [...] Age: 28 y.o. male Admission: 08/23/2023 Bed: [id number] LOS: 11 days Subjective Chief complaint: CMV [...] 65 minutes which was spent performing a madv-bc-pcuh encounter and personally completing the provider-level activities [...] and Other provider communication. Tony Baca MD CAL COORDINATOR PESTICIDE USE * Tony Baca MD - 09/02/2023 3:34 PM CDT Oncology Daily Progress Note Division of Hospital Medicine Name: Beka Lares : 1995 Today's Date: September 02, 2023 Age: 28 y.o. male Admission: 08/23/2023 Bed: [id number] LOS: 10 days Subjective Chief complaint: CMV [...] 60 minutes which was spent performing a lwtf-wx-cywx encounter and personally completing the provider-level activities [...] Age: 28 y.o. male Admission: 08/23/2023 Bed: [id number] LOS: 9 days Subjective Chief complaint: CMV [...] 55 minutes which was spent performing a kxjo-vq-wxqu encounter and personally completing the provider-level activities [...] Age: 28 y.o. male Admission: 08/23/2023 Bed: [id number] LOS: 8 days Subjective Chief complaint: CMV [...] 60 minutes which was spent performing a arck-eq-cwql encounter and personally completing the provider-level activities [...] Chemotherapy R-CHOP x 1, EPOCH-R x 5--> NM after C2 (5PS 4), CR p C6 [...] C3 only d/t intracranial hypotension, w/ post-C2 NM, CR at end-of treatment. No e/o recurrence though course complicated by multiple episodes of progressive annika opathy w/ spontaneous resolution -IVIG dose prior to discharge 08/31 -follows with Dr. Pena updated 08/31 Cathleen Daniel RN, ANP- Nurse Practitioner Medical Oncology [phone] * Sapna Owen - 08/31/2023 2:06 PM [...] intravenous, BID DIURETIC immune globulin, 400 mg/kg (Cobb), intravenous, Once magnesium oxide, 400 mg, oral, [...] 11 10 CREATININE mg/dL 0.71* 0.79* 0.72* GLQ-EWC-NYRLNUK mL/min/1.73 m2 >90 >90 >90 CALCIUM mg/dL [...] Type of Weight Used for EstimatedFluid Needs: Cobb Dietary Orders (From admission, onward) Start Ordered 08/31/23 0852 Adult Diet Clear Liquid Diet effective now Question: ([facility]) Diet type Answer: Clear Liquid 08/31/23 0851 [...] time INTERVENTION(S): Summary: Assess for nutrition changes, [place] diet preferences within the limits of nutrition [...] Age: 28 y.o. male Admission: 08/23/2023 Bed: [id number] LOS: 7 days Subjective Chief complaint: CMV [...] 60 minutes which was spent performing a fgrf-xj-uioi encounter and personally completing the provider-level activities documented in the note. This includes time spent prior to the visit and after the visit in direct care of the patient. This time does not include time spent in any separately reportable services. Case discussed with oncologist attending Dr Gillespie and global account executive attending Dr Bautista. Cause of hyperbilirubinemia, transaminitis and anasarca unclear. Liver and RP LN biopsy pending. Karena Verdugo MD * Karena Mak MD - 08/29/2023 1:19 PM CDT Oncology Daily Progress Note Division of Hospital Medicine Name: Beka Lares : 1995 Today's Date: August 29, 2023 Age: 28 y.o. male Admission: 08/23/2023 Bed: [id number] LOS: 6 days Subjective Chief complaint: CMV [...] 40 minutes which was spent performing a hdpp-hz-lewd encounter and personally completing the provider-level activities [...] Age: 28 y.o. male Admission: 08/23/2023 Bed: [id number] LOS: 5 days Subjective Chief complaint: CMV [...] 45 minutes which was spent performing a yjun-bp-bmzz encounter and personally completing the provider-level activities [...] Age: 28 y.o. male Admission: 08/23/2023 Bed: [id number] LOS: 4 days Subjective Chief complaint: CMV [...] 60 minutes which was spent performing a khft-dv-qeqt encounter and personally completing the provider-level activities [...] Age: 28 y.o. male Admission: 08/23/2023 Bed: [id number] LOS: 3 days Subjective Chief complaint: CMV [...] 55 minutes which was spent performing a dqcj-zs-otka encounter and personally completing the provider-level activities documented in the note. This includes time spent prior to the visit and after the visit in direct care of the patient. This time does not include time spent in any separately reportable services. Kaerna Verdugo MD * Kristine Cook RPh - 08/25/2023 12:59 PM CDT Antimicrobial Stewardship Review ASP review-restricted antimicrobial(s): Foscarnet A member of the [facility] antimicrobial stewardship program has reviewed the patient's chart including the above AIE-ubdiwm-lywaugqmhz antimicrobial(s). Criteria for continued use has been [...] Age: 28 y.o. male Admission: 08/23/2023 Bed: [id number] LOS: 2 days Subjective Chief complaint: CMV [...] 55 minutes which was spent performing a tixh-ta-krfo encounter and personally completing the provider-level activities [...] Age: 28 y.o. male Admission: 08/23/2023 Bed: [id number] LOS: 1 days Subjective Chief complaint: CMV [...] 60 minutes which was spent performing a fxlt-ns-chnl encounter and personally completing the provider-level activities [...] CMV lymphadenitis. Oncology offered release from the [facility] [place], given the low likelihood of a relapse [...] and leucocytosis History of liver transplant (CMS/HCC) ([facility]) Assessment & Plan - Tacrolimus trough has been low sometimes per chart - Will get AM trough level 30-60 minutes before dose tomorrow - continue current tacrolimus dose at 0.5 mg every other day for now - 08/07 Liver transplant doppler showed Patent arterial, portal and hepatic venous systems. No thrombosis. 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 Recentresistance panel shows maribavir and ganciclovir resistance. Eustachian tube dysfunction, bilateral Assessment & Plan status post endoscopic sinus surgery (bilateral maxillary antrostomy, total ethmoidectomy, frontal sinusotomy, and sphenoidotomy) and septoplasty on 08/28/2022 for chronic rhinosinusitis and recurrent acute exacerbations. Idiopathic thrombocytopenic purpura ([facility]) Assessment & Plan s/p splenectomy in 2012 Normal platelets now Edema of both legs Assessment & Plan Get Echo tomorrow Might be due to ?new transplant failure Albumin 3.1 Get UA and Ptn/Cr ratio to look for proteinuria Macrocytic anemia Assessment & Plan Get B12, folate, and TSH levels Organizing pneumonia (CMS/HCC) ([facility]) Assessment & Plan Ct chest showed New [...] 80 minutes which was spent performing a znzs-vr-snja encounter and personally completing the provider-level activities [...] [facility] Patient Name: Beka Suaria Procedure Date: 09/01/2023 3:45 PM Date of : 1995 Admit Type: Inpatient Age: 28 Gender: Male Attending MD: Delia Ashby M.D. Room: [facility] ENDOSCOPY Note Status: Finalized Procedure: Colonoscopy Indications: [...] bowel preparation was evaluated using the BBPS ([place] Bowel Preparation Scale) with scores of: Right [...] On: 09/01/2023 3:45 PM Recognized by the [employer] for promoting quality [...] Preparation Temp -- 36.6 ??C (97.9 ??F) -[place] 36.5 ??C (97.7 ??F) -IO -- User Santana (r) = Recorded By, (t) = Taken By, (c) = Cosigned By Initials Name Sundeep Sorto, Nancy Armas, Mary Estrada RN CH Hughes, Christopher Trevon Vascular Access [...] PICC double -AW -- Time in 1599 -AW -- Vascular Access Procedures PICC line [...] with peel away sheath -AW Lot #: [id number] -AW Expiration Date: 04/30/24 -AW Trimmed Length (cm) : 39 cm -AW Line Tip Location : Central -AW Initial Extremity Circumference (cm): 25 cm -AW Circumference Reference Point: 5 -AW Initial External Length Catheter (cm): 0 cm -AW Placement Verification: Blood return;ECG;Ultrasound -AW Line Secured by : Securement device -AW Inserted by: Lily Duran RN -AW Assisted By:Radhames Alexander RN -AW Insertion attempts: 1 -AW [...] = Cosigned By Initials Name Sundeep Sorto, SHAILESH Karli Crum RN PICC placed per order w/o complication. 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 Paracentesis Date/Time: 08/27/2023 2:24 PM Performed by: Fabi Son MD Authorized by: Marylou Goodson MD [place] Protocol: RN Notified of Procedure: yes Informed [...] is not recommended at this time. A national sales representative ultrasound image of those obtained at the bedside are included below: Marylou Goodson MD * Rickie, Charles Gross MD - 08/27/2023 1:02 PM CDTAssociated Order(s): [facility] END[facility] Patient Name: Beka Lares Procedure Date: 08/27/2023 1:02 PM Date of : 1995 Admit Type: Inpatient Age: 28 Gender: Male Attending MD: Charles Damian M.D. Room: [facility] ENDOSCOPY ROOM 2 Note Status: [...] and informed consent was obtained.The GIF [id number] endoscope was introduced through the mouth, and advanced to the second part of duodenum The Olympus curved linear array therapeutic endosonoscope [id number] was introduced through the mouth, and advanced [...] Quintero RN in the GI office at [phone] for your final results in 7 days. Attending Participation: I personally performed the entire procedure. Electronically Signed By: Charles Damian M.D. Charles Damian M.D. 08/27/2023 2:42:07 PM . Number of Addenda: 0 Note Initiated On: 08/27/2023 1:02 PM Recognized by the [employer] for promoting quality [...] potassium phosphate Recent Labs Lab Units 09/03/23 0301 09/02/2331408/31/232114 SODIUM mmol/L 143 144 145 POTASSIUM PLASMA mmol/L 3.9 4.0 3.8 CHLORIDE mmol/L 110 112* 110 CO2 mmol/L 26 25 26 BUN SERUM mg/dL 11 14 11 CREATININE mg/dL 0.80 0.73* 0.71* DKD-LVK-JWXECIV mL/min/1.73 m2 >90 >90 >90 CALCIUM mg/dL [...] Type of Weight Used for EstimatedFluid Needs: Cobb Dietary Orders (From admission, onward) Start Ordered 09/01/23 175 Adult Diet Restricted; 2 GM Sodium Diet effective now Question Answer Comment ([facility]) Diet type Restricted Fat / Sodium Restriction: [...] time INTERVENTION(S): Summary: Assess for nutrition changes, [place] diet preferences within the limits of nutrition [...] Diet advancement Adina Chandler MS, RD, LD [phone] * Cathleen Daniel, DRAPERY INSTALLER - 08/24/2023 4:33 PM CDTAssociated Order(s): IP [...] Chemotherapy R-CHOP x 1, EPOCH-R x 5--> NM after C2 (5PS 4), CR p C6 [...] R cervical LNBx --> florid follicular hyperplasia, JAOKB --> focally+ 03/22/2019 Remission Spontaneous regression 10/10/2019 [...] 08/24/2023 PT: Recent Labs Lab Units 08/24/23 033 PROTIME (PT) sec 17.2* PTT: Recent Labs [...] C3 only d/t intracranial hypotension, w/ post-C2 NM, CR at end-of treatment. No e/o recurrence [...] ALP. Prior work up including MRI abd evealed no suspicious lesions. His most recent liver [...] are normal. The limited view of the [place] is unremarkable. The visualized portions [...] [place] [address]. He was also noted to have lymphadenopathy [...] levels starting 06/20/22. He was admitted to [facility] 07/09-07/12/22 due to persistent CMV viremia while on marabovir along with 2 week history of cough, fevers, chills, fatigue/malaise. RVP positive for rhinovirus and adenovirus. CMV resistance testing obtained which showed resistance to maribavir. This was discontinued on 07/16/23and he was restarted on Valcyte 900 mg PO BID. CMV levels at OSH on 11/14/22 were 05708. Reached out to patient and it seemed [...] this year his CMV viral load reached 32096 (4 log) while on Valgan with some [...] mg capsule Current Facility-Administered Medications Ordered in [facility] Medication Dose Route Frequency Provider Last Rate Last Admin acetaminophen (TYLENOL) tablet 650 mg 650 mg oral Q6H PRN Alsatli, Amrullah, MD budesonide (PULMICORT) 0.5 mg/2 mL nebulizer [...] (premix) 3.375 g 3.375 g intravenous Q6H Olena Jose MD Stopped at 08/24/23 0625 potassium chloride ER (KLOR-CON) extended release tablet 40 mEq 40 mEq oral Q2H PRN Olena Null MD sodium chloride 0.9% flush 0.5-20 mL 0.5-20 mL intra-catheter Q8H Olena Jose MD 10 mL at 08/24/23 0007 sodium [...] MD Stopped at 08/24/23 0840 No current [facility]-ordered outpatient medications on file. Anti-infectives [...] HIV Screen: Lab Results Component Value Date [id number] Nonreactive 01/03/2019 CD4:No results found for: CD4ABS , CD4PCT Common Virologic Results: Lab Results Component Value Date [id number] Not Detected 04/06/2017 PPD Negative 01/17/2020 TOXOIGG [...] #: 0 Date of : 1995 (M) Casing Tier: Saige Carrasco GARRISON Referring Physician: OLENA NULL MD Contrast Agent: Contrast Administered by: Supervised/Interpreted by: Sharita [place] MD Diagnosis: Location: [facility] Reason for test: peripheral edema MV [...] 2=Hypo 3=Akinetic 4=Dyskin./Aneurysm 0=Not visualized) Parasternal Long Hoven:MAS=1 BAS=1 MIL=1 NGUYỄN=1 Parasternal Short Hoven:MAS=1 MIS=1 NC=1 MIL=1 MAL=1 MA=1 Apical 4 Chambers:=1 MIS=1 BIS=1 BAL=1 MAL=1 AL=1 AC=1 Apical 2 Chambers:AI=1 NC=1 BI=1 BA=1 MA=1 AA=1 AC=1 LV Global [...] MD By signing this report, the attending bakery sales clerk certifies that he or she has personally [...] this year his CMV viral load reached 72302 (4 log) while on Valgan with some [...] me, contact in EPIC or Transplant ID DRAPERY INSTALLER for questions Today, I am treating the patient for GN septicemia and CMV viremia which can cause in the short-term future in the absence of appropriate treatment, as described in the note., Independently interpreted test CMV viremi and blood cultures which shows GN bacteremia., Discussed management of CMVand GN nbacteremia with hepatology color consultant and Dr Solano., Discussed test interpretation of CMV with them., Estimated Creatinine Clearance: 106.3 mL/min (by Cockcroft-Gault based on SCr of 0.92 mg/dL). - reviewed; antibiotics recommended above are dosed accordingly., and The patient is being intensively monitored for antimicrobial toxicity from foscarnet and Pip tazobactam with the following tests: CBC and CMP. documented in this encounter Nursing Notes * Nancy Valdez, SHAILESH - 08/31/2023 4:48 PM CDT Assumed care [...] discharge. Meds will be delivered to home. [facility] will be providing meds. [facility] will be providing [facility]. SOC 09/04/23. Discharge orders received and forwarded to [facility] and Home Health. Briana Richter RN Primer Assembler [facility] [phone] * Plan of Care - Gretchen Hou [...] Infectious Diseases Discharge Recommendations for Patients on Wood Setter IV Antibiotics Diagnosis: CMV viremia, E. Coli bacteremia Retained Infected Hardware (Yes/No/Unclear): No Site of Infection(s): blood Organism(s): CMV & E. coli Antibiotics Start Date: CMV - 08/24 E. Coli - 08/24 PMD: BMT Infectious Disease Team: Transplant Infectious Disease Attending: Prema Duncan Medication Recommendations: Drug(s): Foscarnet 6000mg IV q 12 thru 11/7/23 Valcyte 900mg PO BID Cipro 750mg PO [...] bacteremia. Follow Up Plan: fax results to [phone], follow up with Dr. Prema Duncan in 2-3 wks, After discharge additional questions can be directed to the clinic at [phone], Patient has been educated about the risks [...] BE FAXED TO INFECTIOUS DISEASE CLINIC AT: [phone] PLEASE CALL THE INFECTIOUS DISEASES CLINIC WITH ANY QUESTIONS AT: [phone] Leaving the Hospital on IV Antibiotics Information [...] with antibacterial soap and use alcohol-based hand cork insulation installer before touching yourcatheter or changing wound dressings. [...] Emergency Room. Contact Infectious Diseases Clinic: Toll-free: [phone] Hospital ID Doctor: Prema Smith [facility] Infectious Diseases Offices [facility] Building Extension [address], [address] [place] [address] Patient parking available north of [facility] General Infectious Diseases and [facility]AD Offices [facility] [address] [facility] [address], [address] [place] [address] [facility] ID Clinic [address], [address] [place] [address] * Plan of Care - Sidra Zaidi, [...] for the remainder of today. NPO at RI. -The patient will need golytely split prep [...] ctm. * Consults, Subsequent - La Baxter DRAPERY INSTALLER - 08/31/2023 1:44 PM CDT Infectious Disease [...] 10 % infusion 25 g, 400 mg/kg (Cobb), intravenous, Once, Tony Baca MD magnesium oxide [...] mg, oral, BID with meals(bkfst, dinner), Karena Mka MD, 250 mg at 08/31/23 0810 sodium phosphate - potassium phosphate (K-PHOS NEUTRAL) tablet 500 mg, 500 mg, oral, Daily PRN, Olena Null MD tacrolimus immediate-release capsule 0.5 mg, 0.5 mg, oral, Daily, Karena Mak MD, 0.5 mgat 08/31/23 0810 ursodioL (ACTIGALL) capsule 600 mg, 600 mg, oral, Daily with dinner, Olena Nlul MD, 600 mg at 08/30/23 1756 valGANciclovir [...] ANP- - M-F 8am-4pm (ID Transplant Fellow: [phone]) Today, I am treating the patient for [...] medical record. Respectfully Laci PARKER RN [email or web address] [email or web address] [phone] * Plan of Care - Mary Nevarez [...] F/U Appointments: per oncology Kaelyn Rodriguez, MSN, casting house worker For emergent case management needs after 4:30 PM, please call the employee development specialist at telephone number: For weekend and holiday case management needs from the hours of 8:00 AM to 4:30 PM, [facility] adjuster leader case trim at telephone number: For weekend assistance, please check the treatment team in [facility] for the assigned machine adjuster leader case trim or contact the weekend Case Management phone at [phone]. * Plan of Care - Marlene Rae [...] or minimized Outcome: Progressing * Plan of Janeth - Linda Acosta RN - 08/28/2023 6:37 [...] phone during after hours and weekends. Kavya aGrvey MD Cosigned by Rafia Bautista MD at [...] Subjective Chief complaint of Jaundice Interval History: -NAEON, VSS -ALP downtrending 213 (245), ALT downtrending [...] affect I/O last 2 completed shifts: In: 6906 [P.O.:622; I.V.:5905] Out: 2724 [Urine:2725] I/O this shift: In: - Out: [...] Subjective Chief complaint of Jaundice Interval History: -NAEON, VSS -ALP downtrending 213 (245), AST/ALT lateral [...] Interview Note Information Obtained From: Patient (08/24/23 4160) Admission Source: ID Clinic Impression: 28 y.o. [...] (08/24/231444) Health Insurance Coverage: [employer] (pt employer); [place] Prescription Coverage: yes Pharmacy: [id number] - [place], [place] - [facility] [address] [address] Primary Care Provider: Beka Nick MD - confirmed Prior to Admission: Functional Status: Independent with ADLs Primary Caregiver: Self Support System: Parent (Brooklynn/wgwgjk-[phone], Theodore/[phone]) Home Care Services: No Durable Medical Equipment: [...] Collaboration with patient, MD, direct care nurse, Carbon Furnace Operator Helper, and other members of the health care team to assure needed interventions completed. 2. Return patient to optimal level of self-care post discharge. 3. [employer] will follow for Discharge Planning - interventions [...] METABOLIC PANEL Routine 08/28/2023 3:00 AM CDT NM ABDOM PARACENTESIS DX/THER W/IMAGING GUIDANCE Routine 08/27/2023 [...] Results * eGFR (09/03/2023 3:01 AM CDT) Pathologist [facility] [place] eGFR >90 90 - 130 mL/min/1. 73 m2 [facility] Comment: Interpretive Data Reference Interval Normal [...] MD LAB BLOOD ORDERABLES Fin al Result [facility] Department [place] [address] * (ABNORMAL) Differential, auto (09/03/2023 3:01 AM CDT) Neutrophil abs 4.2 1.7 - 6.5 K/cumm [facility] Imm gran abs 0.0 0.0 - 0.1 K/cumm [facility] Lymphocyte abs 4.4(H) 0.8 - 3.3 K/cumm [facility] Monocyte abs 0.5 0.2 - 0.8 K/cumm [facility] Eosinophil abs 0.6(H) 0.0 - 0.5 K/cumm [facility] Basophil abs 0.1 0.0 - 0.1 K/cumm [facility] Neutrophil pct 42.4 % [facility] Comment: Confirmed by smear review Interpretive Data Percent cell count reference ranges are not reported, since discordance with absolute values may lead to misinterpretation of CBC data. Current Interpretive Data was last revised on 2018. Imm gran pct 0.3 % [facility] Comment: Interpretive Data Percent cell count reference ranges are not reported, since discordance with absolute values may lead to misinterpretation of CBC data. Current Interpretive Data was last revised on 2018. Lymphocyte pct 45.0 % [facility] Comment: Interpretive Data Percent cell count reference ranges are not reported, since discordance with absolute values may lead to misinterpretation of CBC data. Current Interpretive Data was last revised on 2018. Monocyte pct 5.5 % [facility] Comment: Interpretive Data Percent cell count reference ranges are not reported, since discordance with absolute values may lead to misinterpretation of CBC data. Current Interpretive Data was last revised on 2018. Eosinophil pct 6.0 % [facility] Comment: Interpretive Data Percent cell count reference ranges are not reported, since discordance with absolute values may lead to misinterpretation of CBC data. Current Interpretive Data was last revised on 2018. Basophil pct 0.8 % [facility] Comment: Interpretive Data Percent cell count reference ranges are not reported, since discordance with absolute values may lead to misinterpretation of CBC data. Current Interpretive Data was last revised on 2018. Blood 09/03/2023 3:01 AM CDT 09/03/2023 3:38 AM CDT Olena Null MD LAB BLOOD ORDERABLES Final R esult Performing Organization Address [facility] Co de Phone Number [facility] [place] [address] * Tacrolimus level trough (09/03/2023 3:01 AM CDT) Tacrolimus trough 6.2 ng/mL [facility] Comment: Interpretive Data Testing performed by liquid chromatography-tandem mass spectrometry. ??Therapeutic concentrations vary depending on type of transplanted organ and time elapsed since transplant. ??Typical trough concentrations range from 5-15 ng/mL. ??This test was developed and its performance characteristics determined by the [facility] consistent with CLIA requirements. ??This test has not been cleared or approved by the US Food and Drug administration. ??Current interpretive data last reviewed 2020. Blood 09/03/2023 3:01 AM CDT 09/03/2023 3:38 AM CDT Delia Ashby MD LAB BLOOD ORDERABLES Final Result Performing Organization Address [facility] Co de Phone Number [facility] Department [place] [address] * (ABNORMAL) Hepatic function panel (09/03/2023 3:01 AM CDT) Bilirubin, total 4.2(H) 0.1 - 1.2 mg/dL [facility] Bilirubin, direct 3.2(H) 0.1 - 0.3 mg/dL [facility] Protein, pl 4.5(L) 6.5 - 8.5 g/dL [facility] Albumin 2.6(L) 3.5 - 5.0 g/dL [facility] Alk phos 195(H) 40 - 130 Units/L [facility] ALT 43 7 - 55 Units/L [facility] AST 81(H) 10 - 50 Units/L [facility] Blood 09/03/2023 3:01 AM CDT 09/03/2023 3:38 AM CDT Delia Ashby MD LAB BLOOD ORDERABLES Final Result [facility] Department [place] [address] * (ABNORMAL) Basic metabolic panel (09/03/2023 3:01 AM CDT) [facility] Sodium 143 135 - 145 mmol/L [facility] Potassium, pl 3.9 3.3 - 4.9 mmol/L [facility] Chloride 110 97 - 110 mmol/L [facility] CO2 26 22 - 32 mmol/L [facility] Anion gap 7 2 - 15 mmol/L [facility] BUN 11 6 - 25 mg/dL [facility] Creatinine 0.80 0.80 - 1.30 mg/dL [facility] Glucose 85 70 - 199 mg/dL [facility] Comment: Interpretive Data Fasting glucose >/= 126 [...] 2022. Calcium 8.4(L) 8.5 - 10.3 mg/dL [facility] Blood 09/03/2023 3:01 AM CDT 09/03/2023 3:38 AM CDT Delia Ashby MD LAB BLOOD ORDERABLES Final Result Performing Organization Address [facility] Co de Phone Number [facility] Department [place] [address] * Phosphorus (09/03/2023 3:01 AM CDT) Phosphorus, pl 3.4 2.3 - 4.5 mg/dL [facility] Blood 09/03/2023 3:01 AM CDT 09/03/2023 3:38 AM CDT Delia Ashby MD LAB BLOOD ORDERABLES Final Result Performing Organization Address City/[facility]/ZIP Co de Phone Number [facility] Department [place] [address] * Magnesium (09/03/2023 3:01 AM CDT) Magnesium 1.5 1.4 - 2.5 mg/dL [facility] Blood 09/03/2023 3:01 AM CDT 09/03/2023 3:38 AM CDT Delia Ashby MD LAB BLOOD ORDERABLES Final Result Performing Organization Address City/[facility] de Phone Number [facility] [place] [address] * (ABNORMAL) CBC with auto differential (09/03/2023 3:01 AM CDT) Pathologist [facility] [place] WBC 9.8 3.8 - 9.9 K/cumm [facility] Hgb 11.2(L) 13.0 - 17.5 g/dL [facility] Comment: Interpretive Data A reference range for this assay has not been established for patients with an unknown legal sex. Please refer to the laboratory test catalog for established sex-specific reference intervals. Current interpretive data was last revised on 2023. Hct 30.7(L) 38.9 - 50.3 % [facility] Comment: Interpretive Data A reference range for this assay has not been established for patients with an unknown legal sex. Please refer to the laboratory test catalog for established sex-specific reference intervals. Current interpretive data was last revised on 2023. Plt 190 150 - 400 K/cumm [facility] MPV 11.7 9.1 - 12.3 fL [facility] RBC 2.90(L) 4.30 - 5.80 M/cumm [facility] Comment: Interpretive Data A reference range for this assay has not been established for patients with an unknown legal sex. Please refer to the laboratory test catalog for established sex-specific reference intervals. Current interpretive data was last revised on 2023. MCV 105.9(H) 81.3 - 96.4 fL [facility] MCH 38.6(H) 27.1 - 33.3 pg [facility] MCHC 36.5(H) 32.3 - 35.7 g/dL [facility] RDW CV 21.6(H) 11.1 - 14.9 % [facility] RDW SD 84.0(H) 35.7 - 48.1 fL [facility] NRBC abs 0.02(H) 0.00 - 0.01 K/cumm [facility] Blood 09/03/2023 3:01 AM CDT 09/03/2023 3:38 AM CDT us Delia Ashby MD LAB BLOOD ORDERABLES Final Result [facility] Department [place] [address] * (ABNORMAL) Cytomegalovirus (CMV) DNA PCR, quantitative Blood (09/03/2023 3:01 AM CDT) [facility] Signature CMV DNA Detected( A) [facility] Comment: Interpretive Data: The quantifiable range of this assay is 34 IUnits/mL to 10,000,000 IUnits/mL (1.53 log IUnits/mL to 7.0 log IUnits/mL). Testing was performed by the NIA 6800 CMV Test ([employer] Testing performed at [facility]. Current interpretive data was last revised on 2021. CMV DNA IU/mL 252 IUnits/mL [facility] CMV DNA log IU/mL 2.40 log IUnits/mL [facility] Blood 09/03/2023 3:01 AM CDT 09/03/2023 4:01 AM CDT us Tony Baca MD LAB MICROBIOLOGY - GENERAL OR DERABLES Final Result Performing Organization Address [facility] Co de Phone Number [facility] [place] [address] * Uric acid (09/02/2023 3:15 AM CDT) Uric acid 4.3 3.0 - 8.0 mg/dL [facility] Blood 09/02/2023 3:15 AM CDT 09/02/2023 3:31 AM CDT us Anita Gillespie MD LAB BLOOD ORDERABLES Final Result Performing Organization Address [facility] de Phone Number [facility] [place] [address] * eGFR (09/02/2023 3:15 AM CDT) eGFR >90 90 - 130 mL/min/1. 73 m2 [facility] Comment: Interpretive Data Reference Interval Normal ?>/= [...] MD LAB BLOOD ORDERABLES Fin al Result [facility] Department [place] [address] * (ABNORMAL) Lactate dehydrogenase (LD) (09/02/2023 3:15 AM CDT) Lactate dehydrogenase (LDH) 434(H) 100 - 250 Units/L [facility] Blood 09/02/2023 3:15 AM CDT 09/02/2023 3:31 AM CDT us Anita Gillespie MD LAB BLOOD ORDERABLES Final Result Performing Organization Address City/[facility]/ZIP Co de Phone Number [facility] Department [place] [address] * (ABNORMAL) Differential, auto (09/02/2023 3:15 AM CDT) Neutrophil abs 3.5 1.7 - 6.5 K/cumm [facility] Imm gran abs 0.0 0.0 - 0.1 K/cumm [facility] Lymphocyte abs 3.8(H) 0.8 - 3.3 K/cumm [facility] Monocyte abs 0.6 0.2 - 0.8 K/cumm [facility] Eosinophil abs 0.6(H) 0.0 - 0.5 K/cumm [facility] Basophil abs 0.1 0.0 - 0.1 K/cumm [facility] Neutrophil pct 40.8 % [facility] Comment: Interpretive Data Percent cell count reference ranges are not reported, since discordance with absolute values may lead to misinterpretation of CBC data. Current Interpretive Data was last revised on 2018. Imm gran pct 0.3 % [facility] Comment: Interpretive Data Percent cell count reference ranges are not reported, since discordance with absolute values may lead to misinterpretation of CBC data. Current Interpretive Data was last revised on 2018. Lymphocyte pct 44.6 % [facility] Comment: Interpretive Data Percent cell count reference ranges are not reported, since discordance with absolute values may lead to misinterpretation of CBC data. Current Interpretive Data was last revised on 2018. Monocyte pct 6.5 % [facility] Comment: Interpretive Data Percent cell count reference ranges are not reported, since discordance with absolute values may lead to misinterpretation of CBC data. Current Interpretive Data was last revised on 2018. Eosinophil pct 7.0 % [facility] Comment: Interpretive Data Percent cell count reference ranges are not reported, since discordance with absolute values may lead to misinterpretation of CBC data. Current Interpretive Data was last revised on 2018. Basophil pct 0.8 % [facility] Comment: Interpretive Data Percent cell count reference ranges are not reported, since discordance with absolute values may lead to misinterpretation of CBC data. Current Interpretive Data was last revised on 2018. Blood 09/02/2023 3:15 AM CDT 09/02/2023 3:32 AM CDT us Olena Null MD LAB BLOOD ORDERABLES Final R esult [facility] Department [place] [address] * Tacrolimus level trough (09/02/2023 3:15 AM CDT) [facility] Tacrolimus trough 5.9 ng/mL [facility] Comment: Interpretive Data Testing performed by liquid chromatography-tandem mass spectrometry. ??Therapeutic concentrations vary depending on type of transplanted organ and time elapsed since transplant. ??Typical trough concentrations range from 5-15 ng/mL. ??This test was developed and its performance characteristics determined by the [facility] consistent with CLIA requirements. ??This test has not been cleared or approved by the US Food and Drug administration. ??Current interpretive data last reviewed 2020. Blood 09/02/2023 3:15 AM CDT 09/02/2023 3:32 AM CDT Delia Ashby MD LAB BLOOD ORDERABLES Final Result Performing Organization Address City/[facility]/ZIP Co de Phone Number [facility] [place] [address] * (ABNORMAL) Hepatic function panel (09/02/2023 3:15 AM CDT) Bilirubin, total 4.0(H) 0.1 - 1.2 mg/dL [facility] Bilirubin, direct 3.0(H) 0.1 - 0.3 mg/dL [facility] Protein, pl 4.5(L) 6.5 - 8.5 g/dL [facility] Albumin 2.4(L) 3.5 - 5.0 g/dL [facility] Alk phos 199(H) 40 - 130 Units/L [facility] ALT 42 7 - 55 Units/L [facility] AST 77(H) 10 - 50 Units/L [facility] Blood 09/02/2023 3:15 AM CDT 09/02/2023 3:31 AM CDT Delia Ashby MD LAB BLOOD ORDERABLES Final Result Performing Organization Address City/[facility]/ZIP Co de Phone Number [facility] [place] [address] * (ABNORMAL) Basic metabolic panel (09/02/2023 3:15 AM CDT) Sodium 144 135 - 145 mmol/L [facility] Potassium, pl 4.0 3.3 - 4.9 mmol/L [facility] Chloride 112(H) 97 - 110 mmol/L [facility] CO2 25 22 - 32 mmol/L [facility] Anion gap 7 2 - 15 mmol/L [facility] BUN 14 6 - 25 mg/dL [facility] Creatinine 0.73(L) 0.80 - 1.30 mg/dL [facility] Glucose 142 70 - 199 mg/dL [facility] Comment: Interpretive Data Fasting glucose >/= 126 [...] 2022. Calcium 8.4(L) 8.5 - 10.3 mg/dL [facility] Blood 09/02/2023 3:15 AM CDT 09/02/2023 3:31 AM CDT Delia Ashby MD LAB BLOOD ORDERABLES Final Result Performing Organization Address City/[facility]/ZIP Co de Phone Number [facility] Department [place] [address] * Phosphorus (09/02/2023 3:15 AM CDT) Phosphorus, pl 4.3 2.3 - 4.5 mg/dL [facility] Blood 09/02/2023 3:15 AM CDT 09/02/2023 3:31 AM CDT Delia Ashby MD LAB BLOOD ORDERABLES Final Result [facility] Department [place] [address] * Magnesium (09/02/2023 3:15 AM CDT) Pathologist [facility] [place] Magnesium 1.8 1.4 - 2.5 mg/dL [facility] Blood 09/02/2023 3:15 AM CDT 09/02/2023 3:31 AM CDT Delia Ashby MD LAB BLOOD ORDERABLES Final Result [facility] [place] [address] * (ABNORMAL) CBC with auto differential (09/02/2023 3:15 AM CDT) Pathologist [facility] [place] WBC 8.6 3.8 - 9.9 K/cumm [facility] Hgb 11.1(L) 13.0 - 17.5 g/dL [facility] Comment: Interpretive Data A reference range for this assay has not been established for patients with an unknown legal sex. Please refer to the laboratory test catalog for established sex-specific reference intervals. Current interpretive data was last revised on 2023. Hct 30.9(L) 38.9 - 50.3 % [facility] Comment: Interpretive Data A reference range for this assay has not been established for patients with an unknown legal sex. Please refer to the laboratory test catalog for established sex-specific reference intervals. Current interpretive data was last revised on 2023. Plt 212 150 - 400 K/cumm [facility] MPV 12.3 9.1 - 12.3 fL [facility] RBC 2.89(L) 4.30 - 5.80 M/cumm [facility] Comment: Interpretive Data A reference range for this assay has not been established for patients with an unknown legal sex. Please refer to the laboratory test catalog for established sex-specific reference intervals. Current interpretive data was last revised on 2023. MCV 106.9(H) 81.3 - 96.4 fL [facility] MCH 38.4(H) 27.1 - 33.3 pg [facility] MCHC 35.9(H) 32.3 - 35.7 g/dL [facility] RDW CV 21.7(H) 11.1 - 14.9 % [facility] RDW SD 87.5(H) 35.7 - 48.1 fL [facility] NRBC abs 0.00 0.00 - 0.01 K/cumm [facility] Blood 09/02/2023 3:15 AM CDT 09/02/2023 3:32 AM CDT Delia Ashby MD LAB BLOOD ORDERABLES Final Result Performing Organization Address [facility] Co de Phone Number [facility] Department [place] [address] * Type and screen (09/02/2023 3:15 AM CDT) ABO Rh A Positive Carol, indirect Negative [facility] Comment:Patient has previous antibody history Blood 09/02/2023 3:15 AM CDT 09/02/2023 3:33 AM CDT Narrative [facility] - 09/02/2023 4:54 AM CDT Has the patient had Daratumumab or Isatuximab in the past 6 months?->Unknown Delia Ashby MD LAB BLOOD BANK TEST ORDERA BLES Final Result Performing Organization Address [facility] Co de Phone Number [facility] Department [place] [address] * Surgical pathology (09/01/2023 4:02 PM CDT) Tissue (Ileum, Biopsy) 09/01/2023 4:02 PM CDT Tissue (Colon, Biopsy) 09/01/2023 4:06 PM CDT Narrative PATHOLOGY [facility] - 09/02/2023 12:35 PM CDT EPIC results best viewed via link to PDF [facility] Yulisa Garcia Laboratory [place] [address] Note to Patients: This report may contain [...] Gender: ??M : ??1995 (Age: 28) Address: ??[address] [place] [address] ??[id number] Hospital #: ??[id number] Taken:09/01/2023 Received:09/01/2023 Reported: 09/02/2023 Patient Type: [facility] Inpatient ?? Service: Oncology Location: [facility] ??[address] Physician(s): ??Delia Ashby M.D. Beka Nick M.D. [...] Surgical Pathology and Flow Cytometry Departments at [facility] as part of an ongoing quality assurance calibrator program and in compliance with federally mandated [...] Surgical Pathology and Flow Cytometry Departments of [facility]. ??It has not been cleared or approved by the U. S. Food and Drug Administration. IMAGES AND SCANNED DOCUMENTS, IF INCLUDED, ONLY VIEWABLE IN PDF VERSION OF REPORT us Delia Ashby MD LAB PATHOLOGY ORDERABLES F inal Result PATHOLOGY [facility] 3rd Floor [place], [place] [phone] * COLONOSCOPY (09/01/2023 3:45 PM CDT) Anatomical Region Laterality Modality Other Narrative Procedure Note Delia Ashby MD - 09/01/2023 3:45 PM CDT [facility] Patient Name: Beka Lares Procedure Date: 09/01/2023 3:45 PM Date of : 1995 Admit Type: Inpatient Age: 28 Gender: Male Attending MD: Delia Ashby M.D. Room: [facility] ENDOSCOPY Note Status: Finalized Procedure: Colonoscopy Indications: [...] the bowel preparation was evaluatedusing the BBPS ([place] Bowel Preparation Scale) withscores of: Right Colon [...] and participated during the entire procedure, including non-santaan portions. Electronically signed by Delia Ashby MD Delia Ashby M.D. 09/02/2023 10:06:42 AM Number of Addenda: 0 Note Initiated On: 09/01/2023 3:45 PM Recognized by the [employer] for promoting quality in endoscopy us Delia Ashby MD ENDOSCOPY PROCEDURES Final Result * POCT glucose (08/31/2023 11:25 PM CDT) Glucose, POC 107 70 - 199 mg/dL [facility] Blood 08/31/2023 11:2 5 PM CDT 08/31/2023 11:25 PM CDT us Anita Gillespie MD LAB POCT ORDERABLES - KIAH CE Final Result [facility] Department [place] [address] * eGFR (08/31/2023 9:15 PM CDT) Pathologist [facility] [place] eGFR >90 90 - 130 mL/min/1. 73 m2 [facility] Comment: Interpretive Data Reference Interval Normal ?>/= [...] Gillespie MD LAB BLOOD ORDERABLES Final Result [facility] Department [place] [address] * (ABNORMAL) Differential, auto (08/31/2023 9:15 PM CDT) Neutrophil abs 4.3 1.7 - 6.5 K/cumm [facility] Imm gran abs 0.1 0.0 - 0.1 K/cumm [facility] Lymphocyte abs 3.5(H) 0.8 - 3.3 K/cumm [facility] Monocyte abs 0.8 0.2 - 0.8 K/cumm [facility] Eosinophil abs 0.4 0.0 - 0.5 K/cumm [facility] Basophil abs 0.1 0.0 - 0.1 K/cumm [facility] Neutrophil pct 47.0 % [facility] Comment: Interpretive Data Percent cell count reference ranges are not reported, since discordance with absolute values may lead to misinterpretation of CBC data. Current Interpretive Data was last revised on 2018. Imm gran pct 1.4 % [facility] Comment: Interpretive Data Percent cell count reference ranges are not reported, since discordance with absolute values may lead to misinterpretation of CBC data. Current Interpretive Data was last revised on 2018. Lymphocyte pct 38.0 % [facility] Comment: Interpretive Data Percent cell count reference ranges are not reported, since discordance with absolute values may lead to misinterpretation of CBC data. Current Interpretive Data was last revised on 2018. Monocyte pct 8.4 % [facility] Comment: Interpretive Data Percent cell count reference ranges are not reported, since discordance with absolute values may lead to misinterpretation of CBC data. Current Interpretive Data was last revised on 2018. Eosinophil pct 4.3 % [facility] Comment: Interpretive Data Percent cell count reference ranges are not reported, since discordance with absolute values may lead to misinterpretation of CBC data. Current Interpretive Data was last revised on 2018. Basophil pct 0.9 % [facility] Comment: Interpretive Data Percent cell count reference ranges are not reported, since discordance with absolute values may lead to misinterpretation of CBC data. Current Interpretive Data was last revised on 2018. Blood 08/31/2023 9:15 PM CDT 08/31/2023 9:28 PM CDT Anita Gillespie MD LAB BLOOD ORDERABLES Final Result Performing Organization Address [facility] de Phone Number [facility] Department [place] [address] * Tacrolimus level trough (08/31/2023 9:15 PM CDT) Pathologist [facility] [place] Tacrolimus trough 5.0 ng/mL [facility] Comment: Interpretive Data Testing performed by liquid chromatography-tandem mass spectrometry. ??Therapeutic concentrations vary depending on type of transplanted organ and time elapsed since transplant. ??Typical trough concentrations range from 5-15 ng/mL. ??This test was developed and its performance characteristics determined by the [facility] consistent with CLIA requirements. ??This test has not been cleared or approved by the [place] Food and Drug administration. ??Current interpretive data last reviewed 2020. Blood 08/31/2023 9:15 PM CDT 08/31/2023 9:29 PM CDT Anita Gillespie MD LAB BLOOD ORDERABLES Final Result Performing Organization Address [facility] de Phone Number [facility] [place] [address] * Phosphorus (08/31/2023 9:15 PM CDT) Pathologist [facility] [place] Phosphorus, pl 3.9 2.3 - 4.5 mg/dL [facility] Blood 08/31/2023 9:15 PM CDT 08/31/2023 9:28 PM CDT Anita Gillespie MD LAB BLOOD ORDERABLES Final Result [facility] Department [place] [address] * Magnesium (08/31/2023 9:15 PM CDT) [facility] Magnesium 1.6 1.4 - 2.5 mg/dL [facility] Blood 08/31/2023 9:15 PM CDT 08/31/2023 9:28 PM CDT us Anita Gillespie MD LAB BLOOD ORDERABLES Final Result Performing Organization Address [facility]/ZIP Co de Phone Number [facility] [place] [address] * (ABNORMAL) Hepatic function panel (08/31/2023 9:15 PM CDT) [facility] Bilirubin, total 5.3(H) 0.1 - 1.2 mg/dL [facility] Bilirubin, direct 4.1(H) 0.1 - 0.3 mg/dL [facility] Protein, pl 4.8(L) 6.5 - 8.5 g/dL [facility] Albumin 2.7(L) 3.5 - 5.0 g/dL [facility] Alk phos 202(H) 40 - 130 Units/L [facility] ALT 46 7 - 55 Units/L [facility] AST 82(H) 10 - 50 Units/L [facility] Blood 08/31/2023 9:15 PM CDT 08/31/2023 9:28 PM CDT us Anita Gillespie MD LAB BLOOD ORDERABLES Final Result Performing Organization Address City/[facility]/ZIP Co de Phone Number [facility] Department [place] [address] * (ABNORMAL) CBC with auto differential (08/31/2023 9:15 PM CDT) WBC 9.2 3.8 - 9.9 K/cumm [facility] Hgb 11.5(L) 13.0 - 17.5 g/dL [facility] Comment: Interpretive Data A reference range for this assay has not been established for patients with an unknown legal sex. Please refer to the laboratory test catalog for established sex-specific reference intervals. Current interpretive data was last revised on 2023. Hct 31.9(L) 38.9 - 50.3 % [facility] Comment: Interpretive Data A reference range for this assay has not been established for patients with an unknown legal sex. Please refer to the laboratory test catalog for established sex-specific reference intervals. Current interpretive data was last revised on 2023. Plt 238 150 - 400 K/cumm [facility] MPV 12.0 9.1 - 12.3 fL [facility] RBC 3.05(L) 4.30 - 5.80 M/cumm [facility] Comment: Interpretive Data A reference range for this assay has not been established for patients with an unknown legal sex. Please refer to the laboratory test catalog for established sex-specific reference intervals. Current interpretive data was last revised on 2023. MCV 104.6(H) 81.3 - 96.4 fL [facility] MCH 37.7(H) 27.1 - 33.3 pg [facility] MCHC 36.1(H) 32.3 - 35.7 g/dL [facility] RDW CV 20.7(H) 11.1 - 14.9 % [facility] RDW SD 79.5(H) 35.7 - 48.1 fL [facility] NRBC abs 0.03(H) 0.00 - 0.01 K/cumm [facility] Blood 08/31/2023 9:15 PM CDT 08/31/2023 9:28 PM CDT us Anita Gillespie MD LAB BLOOD ORDERABLES Final Result [facility] Department [place] [address] * (ABNORMAL) Basic metabolic panel (08/31/2023 9:15 PM CDT) Pathologist [facility] [place] Sodium 145 135 - 145 mmol/L [facility] Potassium, pl 3.8 3.3 - 4.9 mmol/L [facility] Chloride 110 97 - 110 mmol/L [facility] CO2 26 22 - 32 mmol/L [facility] Anion gap 9 2 - 15 mmol/L [facility] BUN 11 6 - 25 mg/dL [facility] Creatinine 0.71(L) 0.80 - 1.30 mg/dL [facility] Glucose 68(L) 70 - 199 mg/dL [facility] Comment: Interpretive Data Fasting glucose >/= 126 [...] 2022. Calcium 8.1(L) 8.5 - 10.3 mg/dL [facility] Blood 08/31/2023 9:15 PM CDT 08/31/2023 9:28 PM CDT Anita Gillespie MD LAB BLOOD ORDERABLES Final Result [facility] Department [place] [address] * (ABNORMAL) Protime-INR (08/31/2023 9:15 PM CDT) Pathologist [facility] [place] PT 16.2(H) 10.3 - 13.7 sec [facility] INR 1.42(H) 0.90 - 1.20 [facility] Comment: Interpretive data Oral anticoagulant therapeutic ranges: Venous thromboembolism prophylaxis or treatment: 2.0-3.0 CARDIOLOGY Standard range: 2.0-3.0 High-intensity range: 2.5-3.5 Refer to indication-specific guidelines for appropriate target ranges for prosthetic heart valve replacement. Current interpretive data was last revised on 2019. Blood 08/31/2023 9:15 PM CDT 08/31/2023 9:28 PM CDT Anita Gillespie MD LAB BLOOD ORDERABLES Final Result Performing Organization Address City/[facility]/ZIP Co de Phone Number [facility] Department [place] [address] * ECG 12 lead (08/31/2023 3:15 PM CDT) Pathologist [facility] [place] Ventricular Rate EKG/Min 74 BPM [facility] Atrial Rate 74 BPM [facility] NM-Interval (MSEC) 188 ms [facility] QRS-Interval (MSEC) 82 ms [facility] QT-Interval (MSEC) 442 ms [facility] QTc 490 ms [facility] P Hoven 37 degrees [facility] R Hoven 11 degrees [facility] T Hoven 23 degrees [facility] Diagnosis Normal sinus rhythm Possible Inferior infarct , age undetermined T wave abnormality, consider anterior ischemia Abnormal ECG When compared with ECG of 26-AUG-2023 21:48, (unconfirmed) Borderline criteria for Inferior infarct are now Present Confirmed by LANDRY FERNANDEZ M.D ([id number]) on 09/01/2023 10:36:04 AM [facility] 08/31/2023 3:15 PM CDT 09/01/2023 10:36 AM CDT us Tony Baca MD ECG ORDERABLES Final Result Performing Organization Address [facility] Co de Phone Number [facility] * (ABNORMAL) IgG (08/31/2023 2:37 AM CDT) Pathologist [facility] [place] Immunoglobulin G <300.0(L) 700.0 - 1,600.0 mg/dL [facility] Blood 08/31/2023 2:37 AM CDT 08/31/2023 3:09 AM CDT us Anita Gillespie MD LAB BLOOD ORDERABLES Final Result Performing Organization Address [facility] Co de Phone [facility] [place] [address] * eGFR (08/31/2023 2:37 AM CDT) eGFR >90 90 - 130 mL/min/1. 73 m2 [facility] Comment: Interpretive Data Reference Interval Normal ?>/= [...] ORDERABLES Fin al Result Performing Organization Address [facility] de Phone Number [facility] [place] [address] * (ABNORMAL) Differential, auto (08/31/2023 2:37 AM CDT) Neutrophil abs 4.7 1.7 - 6.5 K/cumm [facility] Imm gran abs 0.1 0.0 - 0.1 K/cumm [facility] Lymphocyte abs 4.1(H) 0.8 - 3.3 K/cumm [facility] Monocyte abs 0.7 0.2 - 0.8 K/cumm [facility] Eosinophil abs 0.7(H) 0.0 - 0.5 K/cumm [facility] Basophil abs 0.1 0.0 - 0.1 K/cumm [facility] Neutrophil pct 45.4 % [facility] Comment: Interpretive Data Percent cell count reference ranges are not reported, since discordance with absolute values may lead to misinterpretation of CBC data. Current Interpretive Data was last revised on 2018. Imm gran pct 0.5 % [facility] Comment: Interpretive Data Percent cell count reference ranges are not reported, since discordance with absolute values may lead to misinterpretation of CBC data. Current Interpretive Data was last revised on 2018. Lymphocyte pct 39.7 % [facility] Comment: Interpretive Data Percent cell count reference ranges are not reported, since discordance with absolute values may lead to misinterpretation of CBC data. Current Interpretive Data was last revised on 2018. Monocyte pct 7.1 % [facility] Comment: Interpretive Data Percent cell count reference ranges are not reported, since discordance with absolute values may lead to misinterpretation of CBC data. Current Interpretive Data was last revised on 2018. Eosinophil pct 6.4 % [facility] Comment: Interpretive Data Percent cell count reference ranges are not reported, since discordance with absolute values may lead to misinterpretation of CBC data. Current Interpretive Data was last revised on 2018. Basophil pct 0.9 % [facility] Comment: Interpretive Data Percent cell count reference ranges are not reported, since discordance with absolute values may lead to misinterpretation of CBC data. Current Interpretive Data was last revised on 2018. Blood 08/31/2023 2:37 AM CDT 08/31/2023 3:11 AM CDT Olena Null MD LAB BLOOD ORDERABLES Final R esult Performing Organization Address [facility] de Phone Number [facility] [place] [address] * Tacrolimus level trough (08/31/2023 2:37 AM CDT) Pathologist [facility] [place] Tacrolimus trough 4.2 ng/mL [facility] Comment: Interpretive Data Testing performed by liquid chromatography-tandem mass spectrometry. ??Therapeutic concentrations vary depending on type of transplanted organ and time elapsed since transplant. ??Typical trough concentrations range from 5-15 ng/mL. ??This test was developed and its performance characteristics determined by the [facility] consistent with CLIA requirements. ??This test has not been cleared or approved by the [place] Food and Drug administration. ??Current interpretive data last reviewed 2020. Blood 08/31/2023 2:37 AM CDT 08/31/2023 3:10 AM CDT Delia Ashby MD LAB BLOOD ORDERABLES Final Result Performing Organization Address [facility] de Phone Number [facility] [place] [address] * (ABNORMAL) Hepatic function panel (08/31/2023 2:37 AM CDT) Bilirubin, total 4.1(H) 0.1 - 1.2 mg/dL [facility] Bilirubin, direct 2.6(H) 0.1 - 0.3 mg/dL [facility] Protein, pl 4.0(L) 6.5 - 8.5 g/dL [facility] Albumin 2.4(L) 3.5 - 5.0 g/dL [facility] Alk phos 191(H) 40 - 130 Units/L [facility] ALT 45 7 - 55 Units/L [facility] AST 83(H) 10 - 50 Units/L [facility] Comment:Hemolyzed; result ma y be falsely elevated Blood 08/31/2023 2:37 AM CDT 08/31/2023 3:09 AM CDT Delia Ashby MD LAB BLOOD ORDERABLES Final Result [facility] Department [place] [address] * (ABNORMAL) Basic metabolic panel (08/31/2023 2:37 AM CDT) Pathologist [facility] [place] Sodium 144 135 - 145 mmol/L [facility] Potassium, pl 4.3 3.3 - 4.9 mmol/L [facility] Comment:Hemolyzed; Potassium value may be falsely elevated by as much as 0.3-0.5 mmol/L. Suggest redraw and reanalysis. Chloride 112(H) 97 - 110 mmol/L [facility] CO2 24 22 - 32 mmol/L [facility] Anion gap 8 2 - 15 mmol/L [facility] BUN 12 6 - 25 mg/dL [facility] Creatinine 0.71(L) 0.80 - 1.30 mg/dL [facility] Glucose 77 70 - 199 mg/dL [facility] Comment: Interpretive Data Fasting glucose >/= 126 [...] 2022. Calcium 8.7 8.5 - 10.3 mg/dL [facility] Blood 08/31/2023 2:37 AM CDT 08/31/2023 3:09 AM CDT Delia Ashby MD LAB BLOOD ORDERABLES Final Result Performing Organization Address [facility] Co de Phone Number [facility] [place] [address] * (ABNORMAL) Phosphorus (08/31/2023 2:37 AM CDT) Pathologist [facility] [place] Phosphorus, pl 5.4(H) 2.3 - 4.5 mg/dL [facility] Blood 08/31/2023 2:3 7 AM CDT 08/31/2023 3:09 AM CDT Delia Ashby MD LAB BLOOD ORDERABLES Final Result Performing Organization Address [facility] [place] [address] * Magnesium (08/31/2023 2:37 AM CDT) Pathologist [facility] [place] Magnesium 1.6 1.4 - 2.5 mg/dL [facility] Blood 08/31/2023 2:37 AM CDT 08/31/2023 3:09 AM CDT Delia Ashby MD LAB BLOOD ORDERABLES Final Result Performing Organization Address [facility] [place] [address] * (ABNORMAL) CBC with auto differential (08/31/2023 2:37 AM CDT) Pathologist [facility] [place] WBC 10.3(H) 3.8 - 9.9 K/cumm [facility] Hgb 10.5(L) 13.0 - 17.5 g/dL [facility] Comment: Interpretive Data A reference range for this assay has not been established for patients with an unknown legal sex. Please refer to the laboratory test catalog for established sex-specific reference intervals. Current interpretive data was last revised on 2023. Hct 28.1(L) 38.9 - 50.3 % [facility] Comment: Interpretive Data A reference range for this assay has not been established for patients with an unknown legal sex. Please refer to the laboratory test catalog for established sex-specific reference intervals. Current interpretive data was last revised on 2023. Plt 272 150 - 400 K/cumm [facility] MPV 12.2 9.1 - 12.3 fL [facility] RBC 2.74(L) 4.30 - 5.80 M/cumm [facility] Comment: Interpretive Data A reference range for this assay has not been established for patients with an unknown legal sex. Please refer to the laboratory test catalog for established sex-specific reference intervals. Current interpretive data was last revised on 2023. MCV 102.6(H) 81.3 - 96.4 fL [facility] MCH 38.3(H) 27.1 - 33.3 pg [facility] MCHC 37.4(H) 32.3 - 35.7 g/dL [facility] RDW CV 20.8(H) 11.1 - 14.9 % [facility] RDW SD 74.0(H) 35.7 - 48.1 fL [facility] NRBC abs 0.00 0.00 - 0.01 K/cumm [facility] Blood 08/31/2023 2:37 AM CDT 08/31/2023 3:11 AM CDT us Delia Ashby MD LAB BLOOD ORDERABLES Final Result [facility] Department [place] [address] * eGFR (08/30/2023 3:47 AM CDT) eGFR >90 90 - 130 mL/min/1. 73 m2 [facility] Comment: Interpretive Data Reference Interval Normal ?>/= [...] ORDERABLES Fin al Result Performing Organization Address City/State/[facility] Co de Phone Number [facility] Department [place] [address] * (ABNORMAL) Differential, auto (08/30/2023 3:47 AM CDT) Neutrophil abs 5.3 1.7 - 6.5 K/cumm [facility] Imm gran abs 0.1 0.0 - 0.1 K/cumm [facility] Lymphocyte abs 4.2(H) 0.8 - 3.3 K/cumm [facility] Monocyte abs 1.0(H) 0.2 - 0.8 K/cumm [facility] Eosinophil abs 0.6(H) 0.0 - 0.5 K/cumm [facility] Basophil abs 0.1 0.0 - 0.1 K/cumm [facility] Neutrophil pct 46.9 % [facility] Comment: Consistent with previous result Interpretive Data Percent cell count reference ranges are not reported, since discordance with absolute values may lead to misinterpretation of CBC data. Current Interpretive Data was last revised on 2018. Imm gran pct 0.7 % [facility] Comment: Interpretive Data Percent cell count reference ranges are not reported, since discordance with absolute values may lead to misinterpretation of CBC data. Current Interpretive Data was last revised on 2018. Lymphocyte pct 37.1 % [facility] Comment: Interpretive Data Percent cell count reference ranges are not reported, since discordance with absolute values may lead to misinterpretation of CBC data. Current Interpretive Data was last revised on 2018. Monocyte pct 9.0 % [facility] Comment: Interpretive Data Percent cell count reference ranges are not reported, since discordance with absolute values may lead to misinterpretation of CBC data. Current Interpretive Data was last revised on 2018. Eosinophil pct 5.7 % [facility] Comment: Interpretive Data Percent cell count reference ranges are not reported, since discordance with absolute values may lead to misinterpretation of CBC data. Current Interpretive Data was last revised on 2018. Basophil pct 0.6 % [facility] Comment: Interpretive Data Percent cell count reference ranges are not reported, since discordance with absolute values may lead to misinterpretation of CBC data. Current Interpretive Data was last revised on 2018. Blood 08/30/2023 3:47 AM CDT 08/30/2023 4:01 AM CDT us Olena Null MD LAB BLOOD ORDERABLES Final R esult [facility] Department [place] [address] * Tacrolimus level trough (08/30/2023 3:47 AM CDT) Pathologist [facility] [place] Tacrolimus trough 4.2 ng/mL [facility] Comment: Interpretive Data Testing performed by liquid chromatography-tandem mass spectrometry. ??Therapeutic concentrations vary depending on type of transplanted organ and time elapsed since transplant. ??Typical trough concentrations range from 5-15 ng/mL. ??This test was developed and its performance characteristics determined by the [facility] consistent with CLIA requirements. ??This test has not been cleared or approved by the [place] Food and Drug administration. ??Current interpretive data last reviewed 2020. Blood 08/30/2023 3:47 AM CDT 08/30/2023 4:30 AM CDT Delia Ashby MD LAB BLOOD ORDERABLES Final Result Performing Organization Address [facility] Co de Phone Number [facility] [place] [address] * (ABNORMAL) Hepatic function panel (08/30/2023 3:47 AM CDT) Bilirubin, total 4.7(H) 0.1 - 1.2 mg/dL [facility] Bilirubin, direct 3.6(H) 0.1 - 0.3 mg/dL [facility] Protein, pl 4.0(L) 6.5 - 8.5 g/dL [facility] Albumin 2.5(L) 3.5 - 5.0 g/dL [facility] Alk phos 205(H) 40 - 130 Units/L [facility] ALT 44 7 - 55 Units/L [facility] AST 73(H) 10 - 50 Units/L [facility] Blood 08/30/2023 3:47 AM CDT 08/30/2023 4:01 AM CDT Delia Ashby MD LAB BLOOD ORDERABLES Final Result Performing Organization Address City/[facility] Co de Phone Number [facility] Department [place] [address] * (ABNORMAL) Basic metabolic panel (08/30/2023 3:47 AM CDT) Sodium 145 135 - 145 mmol/L [facility] Potassium, pl 4.2 3.3 - 4.9 mmol/L [facility] Chloride 115(H) 97 - 110 mmol/L [facility] CO2 25 22 - 32 mmol/L [facility] Anion gap 5 2 - 15 mmol/L [facility] BUN 11 6 - 25 mg/dL [facility] Creatinine 0.79(L) 0.80 - 1.30 mg/dL [facility] Glucose 83 70 - 199 mg/dL [facility] Comment: Interpretive Data Fasting glucose >/= 126 [...] 2022. Calcium 8.3(L) 8.5 - 10.3 mg/dL [facility] Blood 08/30/2023 3:47 AM CDT 08/30/2023 4:01 AM CDT Delia Ashby MD LAB BLOOD ORDERABLES Final Result [facility] Department [place] [address] * Phosphorus (08/30/2023 3:47 AM CDT) Phosphorus, pl 3.4 2.3 - 4.5 mg/dL [facility] Blood 08/30/2023 3:47 AM CDT 08/30/2023 4:01 AM CDT Delia Ashby MD LAB BLOOD ORDERABLES Final Result [facility] Department [place] [address] * Magnesium (08/30/2023 3:47 AM CDT) Pathologist [facility] [place] Magnesium 1.6 1.4 - 2.5 mg/dL [facility] Blood 08/30/2023 3:47 AM CDT 08/30/2023 4:01 AM CDT Delia Ashby MD LAB BLOOD ORDERABLES Final Result [facility] [place] [address] * (ABNORMAL) CBC with auto differential (08/30/2023 3:47 AM CDT) [facility] WBC 11.3(H) 3.8 - 9.9 K/cumm [facility] Hgb 11.1(L) 13.0 - 17.5 g/dL [facility] Comment: Interpretive Data A reference range for this assay has not been established for patients with an unknown legal sex. Please refer to the laboratory test catalog for established sex-specific reference intervals. Current interpretive data was last revised on 2023. Hct 30.5(L) 38.9 - 50.3 % [facility] Comment: Interpretive Data A reference range for this assay has not been established for patients with an unknown legal sex. Please refer to the laboratory test catalog for established sex-specific reference intervals. Current interpretive data was last revised on 2023. Plt 269 150 - 400 K/cumm [facility] MPV 12.3 9.1 - 12.3 fL [facility] RBC 3.00(L) 4.30 - 5.80 M/cumm [facility] Comment: Interpretive Data A reference range for this assay has not been established for patients with an unknown legal sex. Please refer to the laboratory test catalog for established sex-specific reference intervals. Current interpretive data was last revised on 2023. MCV 101.7(H) 81.3 - 96.4 fL [facility] MCH 37.0(H) 27.1 - 33.3 pg [facility] MCHC 36.4(H) 32.3 - 35.7 g/dL [facility] RDW CV 20.6(H) 11.1 - 14.9 % [facility] RDW SD 76.2(H) 35.7 - 48.1 fL [facility] NRBC abs 0.00 0.00 - 0.01 K/cumm [facility] Blood 08/30/2023 3:47 AM CDT 08/30/2023 4:01 AM CDT Delia Ashby MD LAB BLOOD ORDERABLES Final Result Performing Organization Address [facility] de Phone Number [facility] [place] [address] * (ABNORMAL) Protime-INR (08/30/2023 3:47 AM CDT) PT 15.7(H) 10.3 - 13.7 sec [facility] INR 1.38(H) 0.90 - 1.20 [facility] Comment: Interpretive data Oral anticoagulant therapeutic ranges: Venous thromboembolism prophylaxis or treatment: 2.0-3.0 CARDIOLOGY Standard range: 2.0-3.0 High-intensity range: 2.5-3.5 Refer to indication-specific guidelines for appropriate target ranges for prosthetic heart valve replacement. Current interpretive data was last revised on 2019. Blood 08/30/2023 3:47 AM CDT 08/30/2023 4:15 AM CDT Delia Ashby MD LAB BLOOD ORDERABLES Final Result Performing Organization Address [facility] [facility] de Phone Number [facility] [place] [address] * aPTT (08/30/2023 3:47 AM CDT) aPTT 33 28 - 38 sec [facility] Comment: Interpretive Data Heparin therapeutic range: 66.0 - 100.0 seconds. Range based on correlation with therapeutic heparin activity range of 0.3 - 0.7 Units/mL. Current interpretive data was last revised on 2023. Blood 08/30/2023 3:47 AM CDT 08/30/2023 4:15 AM CDT Delia Ashby MD LAB BLOOD ORDERABLES Final Result Performing Organization Address [facility] Co de Phone Number [facility] [place] [address] * (ABNORMAL) Lactate dehydrogenase (LD) (08/30/2023 3:47 AM CDT) Lactate dehydrogenase (LDH) 468(H) 100 - 250 Units/L [facility] Blood 08/30/2023 3:47 AM CDT 08/30/2023 4:01 AM CDT Narrative [facility] - 08/30/2023 4:33 AM CDT Wednesday and only. Morning draw. Delia Ashby MD LAB BLOOD ORDERABLES Final Result Performing Organization Address [facility] Co de Phone Number [facility] [place] [address] * Uric acid (08/30/2023 3:47 AM CDT) Uric acid 3.4 3.0 - 8.0 mg/dL [facility] Blood 08/30/2023 3:47 AM CDT 08/30/2023 4:01 AM CDT Narrative [facility] - 08/30/2023 4:33 AM CDT Wednesday and only. Morning draw. . Delia Ashby MD LAB BLOOD ORDERABLES Final Result Performing Organization Address City/[facility] Co de Phone Number [facility] [place] [address] * Type and screen (08/30/2023 3:47 AM CDT) Pathologist [facility] [place] ABO Rh A Positive Carol, indirect Negative [facility] Comment:Patient has previous antibody history Blood 08/30/2023 3:47 AM CDT 08/30/2023 4:20 AM CDT Narrative [facility] - 08/30/2023 5:54 AM CDT Has the patient had Daratumumab or Isatuximab in the past 6 months?->Unknown us Delia Ashby MD LAB BLOOD BANK TEST ORDERA BLES Final Result Performing Organization Address [facility] de Phone Number [place] [address] * (ABNORMAL) Cytomegalovirus (CMV) DNA PCR, quantitative Blood (08/30/2023 3:47 AM CDT) [facility] CMV DNA Detected( A) [facility] Comment: Interpretive Data: The quantifiable range of this assay is 34 IUnits/mL to 10,000,000 IUnits/mL (1.53 log IUnits/mL to 7.0 log IUnits/mL). Testing was performed by the NIA 6800 CMV Test ([employer] Testing performed at [facility]. Current interpretive data was last revised on 2021. CMV DNA IU/mL 185 IUnits/mL [facility] CMV DNA log IU/mL 2.27 log IUnits/mL [facility] Blood 08/30/2023 3:47 AM CDT 08/30/2023 4:59 AM CDT us Karena Verdugo MD LAB MICROBIOLOGY - GENER AL ORDERABLES Final Result Performing Organization Address [facility] Co de Phone Number [facility] [place] [address] * eGFR (08/29/2023 3:10 AM CDT) [facility] eGFR >90 90 - 130 mL/min/1. 73 m2 [facility] Comment: Interpretive Data Reference Interval Normal ?>/= [...] ORDERABLES Fin al Result [facility] Department [place] [address] * (ABNORMAL) Differential, auto (08/29/2023 3:10 AM CDT) [facility] Neutrophil abs 4.1 1.7 - 6.5 K/cumm [facility] Imm gran abs 0.1 0.0 - 0.1 K/cumm [facility] Lymphocyte abs 4.7(H) 0.8 - 3.3 K/cumm [facility] Monocyte abs 1.5(H) 0.2 - 0.8 K/cumm [facility] Eosinophil abs 0.8(H) 0.0 - 0.5 K/cumm [facility] Basophil abs 0.1 0.0 - 0.1 K/cumm [facility] Neutrophil pct 36.6 % [facility] Comment: Confirmed by smear review Interpretive Data Percent cell count reference ranges are not reported, since discordance with absolute values may lead to misinterpretation of CBC data. Current Interpretive Data was last revised on 2018. Imm gran pct 0.6 % [facility] Comment: Interpretive Data Percent cell count reference ranges are not reported, since discordance with absolute values may lead to misinterpretation of CBC data. Current Interpretive Data was last revised on 2018. Lymphocyte pct 41.8 % [facility] Comment: Interpretive Data Percent cell count reference ranges are not reported, since discordance with absolute values may lead to misinterpretation of CBC data. Current Interpretive Data was last revised on 2018. Monocyte pct 12.9 % [facility] Comment: Interpretive Data Percent cell count reference ranges are not reported, since discordance with absolute values may lead to misinterpretation of CBC data. Current Interpretive Data was last revised on 2018. Eosinophil pct 7.4 % [facility] Comment: Interpretive Data Percent cell count reference ranges are not reported, since discordance with absolute values may lead to misinterpretation of CBC data. Current Interpretive Data was last revised on 2018. Basophil pct 0.7 % [facility] Comment: Interpretive Data Percent cell count reference ranges are not reported, since discordance with absolute values may lead to misinterpretation of CBC data. Current Interpretive Data was last revised on 2018. Blood 08/29/2023 3:10 AM CDT 08/29/2023 3:47 AM CDT Olena Null MD LAB BLOOD ORDERABLES Final R esult Performing Organization Address [facility] Co de Phone Number [facility] [place] [address] * Tacrolimus level trough (08/29/2023 3:10 AM CDT) Tacrolimus trough 4.2 ng/mL [facility] Comment: Interpretive Data Testing performed by liquid chromatography-tandem mass spectrometry. ??Therapeutic concentrations vary depending on type of transplanted organ and time elapsed since transplant. ??Typical trough concentrations range from 5-15 ng/mL. ??This test was developed and its performance characteristics determined by the [facility] consistent with CLIA requirements. ??This test has not been cleared or approved by the US Food and Drug administration. ??Current interpretive data last reviewed 2020. Blood 08/29/2023 3:10 AM CDT 08/29/2023 3:47 AM CDT Delia Ashby MD LAB BLOOD ORDERABLES Final Result Performing Organization Address [facility] Co de Phone Number [facility] Department [place] [address] * (ABNORMAL) Hepatic function panel (08/29/2023 3:10 AM CDT) Bilirubin, total 4.5(H) 0.1 - 1.2 mg/dL [facility] Bilirubin, direct 3.5(H) 0.1 - 0.3 mg/dL [facility] Protein, pl 4.0(L) 6.5 - 8.5 g/dL [facility] Albumin 2.5(L) 3.5 - 5.0 g/dL [facility] Alk phos 216(H) 40 - 130 Units/L [facility] ALT 47 7 - 55 Units/L [facility] AST 71(H) 10 - 50 Units/L [facility] Blood 08/29/2023 3:10 AM CDT 08/29/2023 3:46 AM CDT Delia Ashby MD LAB BLOOD ORDERABLES Final Result [facility] Department [place] [address] * (ABNORMAL) Basic metabolic panel (08/29/2023 3:10 AM CDT) Pathologist [facility] [place] Sodium 144 135 - 145 mmol/L [facility] Potassium, pl 3.8 3.3 - 4.9 mmol/L [facility] Chloride 112(H) 97 - 110 mmol/L [facility] CO2 25 22 - 32 mmol/L [facility] Anion gap 7 2 - 15 mmol/L [facility] BUN 10 6 - 25 mg/dL [facility] Creatinine 0.72(L) 0.80 - 1.30 mg/dL [facility] Glucose 77 70 - 199 mg/dL [facility] Comment: Interpretive Data Fasting glucose >/= 126 [...] 2022. Calcium 7.9(L) 8.5 - 10.3 mg/dL [facility] Blood 08/29/2023 3:10 AM CDT 08/29/2023 3:46 AM CDT Delia Ashby MD LAB BLOOD ORDERABLES Final Result [facility] Department [place] [address] * Phosphorus (08/29/2023 3:10 AM CDT) Pathologist [facility] [place] Phosphorus, pl 3.3 2.3 - 4.5 mg/dL [facility] Blood 08/29/2023 3:10 AM CDT 08/29/2023 3:46 AM CDT Delia Ashby MD LAB BLOOD ORDERABLES Final Result Performing Organization Address City/[facility]/ZIP Co de Phone Number [facility] [place] [address] * Magnesium (08/29/2023 3:10 AM CDT) [facility] Magnesium 1.6 1.4 - 2.5 mg/dL [facility] Blood 08/29/2023 3:10 AM CDT 08/29/2023 3:46 AM CDT Delia Ashby MD LAB BLOOD ORDERABLES Final Result Performing Organization Address City/[facility] de Phone Number [facility] Department [place] [address] * (ABNORMAL) CBC with auto differential (08/29/2023 3:10 AM CDT) [facility] WBC 11.3(H) 3.8 - 9.9 K/cumm [facility] Hgb 10.9(L) 13.0 - 17.5 g/dL [facility] Comment: Interpretive Data A reference range for this assay has not been established for patients with an unknown legal sex. Please refer to the laboratory test catalog for established sex-specific reference intervals. Current interpretive data was last revised on 2023. Hct 29.9(L) 38.9 - 50.3 % [facility] Comment: Interpretive Data A reference range for this assay has not been established for patients with an unknown legal sex. Please refer to the laboratory test catalog for established sex-specific reference intervals. Current interpretive data was last revised on 2023. Plt 304 150 - 400 K/cumm [facility] MPV 12.2 9.1 - 12.3 fL [facility] RBC 2.94(L) 4.30 - 5.80 M/cumm [facility] Comment: Interpretive Data A reference range for this assay has not been established for patients with an unknown legal sex. Please refer to the laboratory test catalog for established sex-specific reference intervals. Current interpretive data was last revised on 2023. MCV 101.7(H) 81.3 - 96.4 fL [facility] MCH 37.1(H) 27.1 - 33.3 pg [facility] MCHC 36.5(H) 32.3 - 35.7 g/dL [facility] RDW CV 20.0(H) 11.1 - 14.9 % [facility] RDW SD 73.0(H) 35.7 - 48.1 fL [facility] NRBC abs 0.02(H) 0.00 - 0.01 K/cumm [facility] Blood 08/29/2023 3:10 AM CDT 08/29/2023 3:47 AM CDT us Delia Ashby MD LAB BLOOD ORDERABLES Final Result [facility] Department [place] [address] * eGFR (08/28/2023 3:00 AM CDT) [facility] eGFR >90 90 - 130 mL/min/1. 73 m2 [facility] Comment: Interpretive Data Reference Interval Normal ?>/= [...] MD LAB BLOOD ORDERABLES Fin al Result [facility] Department [place] [address] * (ABNORMAL) Differential, auto (08/28/2023 3:00 AM CDT) Neutrophil abs 3.3 1.7 - 6.5 K/cumm [facility] Imm gran abs 0.1 0.0 - 0.1 K/cumm [facility] Lymphocyte abs 3.9(H) 0.8 - 3.3 K/cumm [facility] Monocyte abs 1.6(H) 0.2 - 0.8 K/cumm [facility] Eosinophil abs 0.9(H) 0.0 - 0.5 K/cumm [facility] Basophil abs 0.1 0.0 - 0.1 K/cumm [facility] Neutrophil pct 33.5 % [facility] Comment: Interpretive Data Percent cell count reference ranges are not reported, since discordance with absolute values may lead to misinterpretation of CBC data. Current Interpretive Data was last revised on 2018. Imm gran pct 0.7 % [facility] Comment: Interpretive Data Percent cell count reference [...] 3:00 AM CDT 08/28/2023 3:08 AM CDT Olena Null MD LAB BLOOD ORDERABLES Final R esult [facility] Department [place] [address] * Tacrolimus level trough (08/28/2023 3:00 AM CDT) Tacrolimus trough 4.4 ng/mL [facility] Comment: Interpretive Data Testing performed by liquid chromatography-tandem mass spectrometry. ??Therapeutic concentrations vary depending on type of transplanted organ and time elapsed since transplant. ??Typical trough concentrations range from 5-15 ng/mL. ??This test was developed and its performance characteristics determined by the [facility] consistent with CLIA requirements. ??This test has not been cleared or approved by the US Food and Drug administration. ??Current interpretive data last reviewed 2020. Blood 08/28/2023 3:00 AM CDT 08/28/2023 3:08 AM CDT Delia Ashby MD LAB BLOOD ORDERABLES Final Result Performing Organization Address [facility] Co de Phone Number [facility] [place] [address] * (ABNORMAL) Hepatic function panel (08/28/2023 3:00 AM CDT) Bilirubin, total 4.8(H) 0.1 - 1.2 mg/dL [facility] Bilirubin, direct 3.9(H) 0.1 - 0.3 mg/dL [facility] Protein, pl 4.2(L) 6.5 - 8.5 g/dL [facility] Albumin 2.5(L) 3.5 - 5.0 g/dL [facility] Alk phos 227(H) 40 - 130 Units/L [facility] ALT 51 7 - 55 Units/L [facility] AST 78(H) 10 - 50 Units/L [facility] Blood 08/28/2023 3:00 AM CDT 08/28/2023 3:08 AM CDT Delia Ashby MD LAB BLOOD ORDERABLES Final Result Performing Organization Address [facility] de Phone Number [facility] Department [place] [address] * (ABNORMAL) Basic metabolic panel (08/28/2023 3:00 AM CDT) Sodium 141 135 - 145 mmol/L [facility] Potassium, pl 3.5 3.3 - 4.9 mmol/L [facility] Chloride 110 97 - 110 mmol/L [facility] CO2 24 22 - 32 mmol/L [facility] Anion gap 7 2 - 15 mmol/L [facility] BUN 9 6 - 25 mg/dL [facility] Creatinine 0.72(L) 0.80 - 1.30 mg/dL [facility] Glucose 85 70 - 199 mg/dL [facility] Comment: Interpretive Data Fasting glucose >/= 126 [...] 2022. Calcium 6.9(L) 8.5 - 10.3 mg/dL [facility] Blood 08/28/2023 3:00 AM CDT 08/28/2023 3:08 AM CDT Delia Ashby MD LAB BLOOD ORDERABLES Final Result Performing Organization Address City/[facility]/ZIP Co de Phone Number [facility] Department [place] [address] * (ABNORMAL) Phosphorus (08/28/2023 3:00 AM CDT) Phosphorus, pl 2.1(L) 2.3 - 4.5 mg/dL [facility] Blood 08/28/2023 3:00 AM CDT 08/28/2023 3:08 AM CDT Delia Ashby MD LAB BLOOD ORDERABLES Final Result [facility] Department [place] [address] * Magnesium (08/28/2023 3:00 AM CDT) Magnesium 2.0 1.4 - 2.5 mg/dL [facility] Blood 08/28/2023 3:00 AM CDT 08/28/2023 3:08 AM CDT us Delia Ashby MD LAB BLOOD ORDERABLES Final Result [facility] Department [place] [address] * (ABNORMAL) CBC with auto differential (08/28/2023 3:00 AM CDT) [facility] WBC 9.9 3.8 - 9.9 K/cumm [facility] Hgb 10.2(L) 13.0 - 17.5 g/dL [facility] Comment: Interpretive Data A reference range for this assay has not been established for patients with an unknown legal sex. Please refer to the laboratory test catalog for established sex-specific reference intervals. Current interpretive data was last revised on 2023. Hct 28.0(L) 38.9 - 50.3 % [facility] Comment: Interpretive Data A reference range for this assay has not been established for patients with an unknown legal sex. Please refer to the laboratory test catalog for established sex-specific reference intervals. Current interpretive data was last revised on 2023. Plt 283 150 - 400 K/cumm [facility] MPV 12.0 9.1 - 12.3 fL [facility] RBC 2.74(L) 4.30 - 5.80 M/cumm [facility] Comment: Interpretive Data A reference range for this assay has not been established for patients with an unknown legal sex. Please refer to the laboratory test catalog for established sex-specific reference intervals. Current interpretive data was last revised on 2023. MCV 102.2(H) 81.3 - 96.4 fL [facility] MCH 37.2(H) 27.1 - 33.3 pg [facility] MCHC 36.4(H) 32.3 - 35.7 g/dL [facility] RDW CV 19.5(H) 11.1 - 14.9 % [facility] RDW SD 70.5(H) 35.7 - 48.1 fL [facility] NRBC abs 0.03(H) 0.00 - 0.01 K/cumm [facility] Blood 08/28/2023 3:00 AM CDT 08/28/2023 3:08 AM CDT us Delia Asbhy MD LAB BLOOD ORDERABLES Final Result [facility] Department [place] [address] * NM ABDOM PARACENTESIS DX/THER W/IMAGING GUIDANCE (08/27/2023 2:24 PM CDT) Narrative Marylou Goodson MD - 08/27/2023 2:24 PM CDT Nick Martínez MD ? 08/27/2023 ??2:25 PM Paracentesis Date/Time: 08/27/2023 2:24 PM Performed by: Fabi Son MD Authorized by: Marylou Goodson MD ?? [place] Protocol: ??RN Notified of Procedure: yes ?Informed [...] PM CDT) Leukemia/Lymph melissa Result See comment [facility] Comment:Credited, duplicate test. Lymph node 08/27/2023 1:59 PM CDT 09/03/2023 3:10 PM CDT Narrative [facility] - 09/03/2023 3:11 PM CDT Retro Peritoneal Lymph Node-FNB Charles Damian MD LAB PATHOLOGY ORDERABLES Fi nal Result [facility] Department [place] [address] * Flow Leukemia/Lymphoma Lymph node (08/27/2023 1:48 PM CDT) Frazier Stain Test Completed [facility] Leukemia/Lymp josé manuel Result See separate Surgical Pathology report. [facility] Lymph node 08/27/2023 1:48 PM CDT 08/27/2023 5:51 PM CDT Antia Gillespie MD LAB PATHOLOGY ORDERABLES F inal Result Performing Organization Address City/[facility]/ZIP Co de Phone Number [facility] Department [place] [address] * Surgical pathology (08/27/2023 1:48 PM CDT) Tissue (Lymph node, needle biopsy) 08/27/2023 1:48 PM CDT Tissue (Liver, Biopsy, Needle Medical) 08/27/2023 1:55 PM CDT Narrative PATHOLOGY [facility] - 09/03/2023 10:14 PM CDT EPIC results best viewed via link to PDF [facility] Yulisa Garcia Laboratory [place] [address] Note to Patients: This report may contain [...] SURGICAL PATHOLOGY REPORT FINAL Patient Name: ?? BKEA LARES Gender: ??M : ??1995 (Age: 28) Address: ??[address] [place], [place] ??[address] Hospital #: ??[id number] Taken:08/27/2023 Received:08/27/2023 Reported: 09/03/2023 Patient Type: [facility] Inpatient ?? Service: Oncology Location: [facility] ??[address] Physician(s): ??Charles Damian M.D. Rafia Bautista M.D. [...] 4) ? - No evidence to support [id number] deficiency by PAS-D ? - No definitive [...] infiltrates, among other findings. The previous biopsy ([id number]), which was reviewed in comparison with the [...] in periportal hepatocytes and apparent loss of [place] bile ducts in approximately 4 of 8 [...] flow cytometry specimen was examined for internal director software quality assurance purposes. Flow cytometry was performed using antibodies to the following cellular antigens: CD45, CD34, CD19, CD20, [place], Lambda, CD10, CD5, CD200, CD38, CD2, CD3, CD4, CD7, CD8, CD56, TCR-GD. Total antigens analyzed: 17 Flow cytometry and cytospin reviewed by Dr. Ricks.[facility] Microscopic examination substantiates the above cited diagnosis. Special stains and single antibody immunostain procedures were performed with appropriately staining controls. Reference: Mayito Martinez [facility], WAYNE*; Francisco Hernandez MD, PhD*; Sara Campo MD, PhD? ? ? ; Marco Villeda MD? ? ? ; Fern Sharp MD? ? ?; [place], ? ? tima QUINTANILLA?; Zahida Quinteros MD? ? ?; Syed Arambula MD*. 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 The [place] Journal of Surgical Pathology 44(5):p [phone], March [...] Surgical Pathology and Flow Cytometry Departments at [facility] as part of an ongoing quality assurance calibrator program and in compliance with federally mandated [...] Surgical Pathology and Flow Cytometry Departments of [facility]. ??It has not been cleared or approved by the U. S. Food and Drug Administration. IMAGES AND SCANNED DOCUMENTS, IF INCLUDED, ONLY VIEWABLE IN PDF VERSION OF REPORT us Charles Damian MD LAB PATHOLOGY ORDERABLES Fi nal Result PATHOLOGY [facility] 3rd Floor [place], [place] [phone] * US Vein Duplex Upper Extremity Left Limited, Unilateral (08/27/2023 1:24 PM CDT) Anatomical Region Laterality Modality Vascular Left Ultrasound 08/27/2023 1:53 PM CDT Narrative 08/28/2023 7:13 AM CDT [facility] - Department of Vascular Surgery, Vascular Laboratory [address] [place] [address] Upper Extremity Venous Ultrasound Report Patient Name: BEKA LARES J : 1995 (28y 6m) Study Date: 08/27/2023 1:53:38 PM Gender: M Tech: Location: [id number] Ref.Provider: KARENA MAK Quality: Adequate Order Provider: KARENA MAK Procedures: Vascular Report: Venous Duplex imaging was performed in the left upper extremity. The internal jugular, subclavian and axillary veins were evaluated for patency, spontaneity and phasicity with Doppler, compression and augmentation maneuvers. The brachial, basilic and cephalic veins were also evaluated with compression maneuvers. Indications: edema. Findings: Performing Casing Tier: Shannan Oviedo RVT. Left: Venous Doppler signals [...] above. Electronically Signed By: Severino Pickett MD [facility] 2023-08-28 07:13:33 CDT CC: CC: Procedure Note Severino Pickett MD - 08/28/2023 [facility] - Department of Vascular Surgery,Vascular Laboratory [address] [place] [address] Upper Extremity Venous Ultrasound Report Patient Name: BEKA LARES JPatient ID: [id number] : 1995 (28y 6m)Study Date: 08/27/2023 1:53:38 PM Gender: MAccession #: [id number] Tech: DRLocation: [id number] Ref.Provider: KARENA MAKQuality: Adequate Order Provider: KARENA MAK Procedures: Vascular Report: Venous Duplex imaging was performed in the left upper extremity. Theinternal jugular, subclavian and axillary veins were evaluated for patency, spontaneity andphasicity with Doppler, compression and augmentation maneuvers. The brachial, basilic andcephalic veins were also evaluated with compression maneuvers. Indications: edema. Findings: Performing Casing Tier: Shannan Oviedo RVT. Left: Venous Doppler signals [...] above. Electronically Signed By: Severino Pickett MD [facility] 2023-08-28 07:13:33 CDT CC: CC: us Karena [...] Male Attending MD: Charles Damian M.D. Room: [facility] ENDOSCOPY ROOM 2 Note Status: [...] and informed consent was obtained.The [id number] endoscope was introduced through themouth, and advanced to the second part of duodenum The Olympus curved linear array therapeuticendosonoscope [id number] was introduced through the mouth, and advanced [...] Quintero RN in the GI office at [phone] for your final results in 7 days. Attending Participation: I personally performed the entire procedure. Electronically Signed By: Charles Damian M.D. Charles Damian M.D. 08/27/2023 2:42:07 PM . Number of Addenda: 0 Note Initiated On: 08/27/2023 1:02 PM Recognized by the [employer] for promoting quality in endoscopy us Charles Damian MD ENDOSCOPY PROCEDURES Final Result * eGFR (08/27/2023 3:31 AM CDT) eGFR >90 90 - 130 mL/min/1. 73 m2 [facility] Comment: Interpretive Data Reference Interval Normal [...] MD LAB BLOOD ORDERABLES Fin al Result [facility] Department [place] [address] * (ABNORMAL) Differential, auto (08/27/2023 3:31 AM CDT) Pathologist [facility] [place] Neutrophil abs 5.4 1.7 - 6.5 K/cumm [facility] Imm gran abs 0.1 0.0 - 0.1 K/cumm [facility] Lymphocyte abs 4.2(H) 0.8 - 3.3 K/cumm [facility] Monocyte abs 1.9(H) 0.2 - 0.8 K/cumm [facility] Eosinophil abs 0.8(H) 0.0 - 0.5 K/cumm [facility] Basophil abs 0.1 0.0 - 0.1 K/cumm [facility] Neutrophil pct 42.9 % [facility] Comment: Consistent with previous result Interpretive Data Percent cell count reference ranges are not reported, since discordance with absolute values may lead to misinterpretation of CBC data. Current Interpretive Data was last revised on 2018. Imm gran pct 0.9 % [facility] Comment: Interpretive Data Percent cell count [...] ORDERABLES Final R esult [facility] [place] [address] * Tacrolimus level trough (08/27/2023 3:31 AM CDT) Tacrolimus trough 3.7 ng/mL [facility] Comment: Interpretive Data Testing performed by liquid chromatography-tandem mass spectrometry. ??Therapeutic concentrations vary depending on type of transplanted organ and time elapsed since transplant. ??Typical trough concentrations range from 5-15 ng/mL. ??This test was developed and its performance characteristics determined by the [facility] consistent with CLIA requirements. ??This test has not been cleared or approved by the US Food and Drug administration. ??Current interpretive data last reviewed 2020. Blood 08/27/2023 3:31 AM CDT 08/27/2023 4:05 AM CDT Delia Ashby MD LAB BLOOD ORDERABLES Final Result Performing Organization Address City/[facility]/ZIP Co de Phone Number [facility] Department [place] [address] * (ABNORMAL) Hepatic function panel (08/27/2023 3:31 AM CDT) Bilirubin, total 5.5(H) 0.1 - 1.2 mg/dL [facility] Bilirubin, direct 4.4(H) 0.1 - 0.3 mg/dL [facility] Protein, pl 4.3(L) 6.5 - 8.5 g/dL [facility] Albumin 2.7(L) 3.5 - 5.0 g/dL [facility] Alk phos 229(H) 40 - 130 Units/L [facility] ALT 53 7 - 55 Units/L [facility] AST 82(H) 10 - 50 Units/L [facility] Blood 08/27/2023 3:31 AM CDT 08/27/2023 4:05 AM CDT Delia Ashby MD LAB BLOOD ORDERABLES Final Result Performing Organization Address [facility] de Phone Number [facility] Department [place] [address] * (ABNORMAL) Basic metabolic panel (08/27/2023 3:31 AM CDT) Sodium 140 135 - 145 mmol/L [facility] Potassium, pl 3.8 3.3 - 4.9 mmol/L [facility] Chloride 109 97 - 110 mmol/L [facility] CO2 23 22 - 32 mmol/L [facility] Anion gap 8 2 - 15 mmol/L [facility] BUN 10 6 - 25 mg/dL [facility] Creatinine 0.76(L) 0.80 - 1.30 mg/dL [facility] Glucose 99 70 - 199 mg/dL [facility] Comment: Interpretive Data Fasting glucose >/= 126 [...] 2022. Calcium 6.9(L) 8.5 - 10.3 mg/dL [facility] Blood 08/27/2023 3:31 AM CDT 08/27/2023 4:05 AM CDT Delia Ashby MD LAB BLOOD ORDERABLES Final Result Performing Organization Address City/[facility]/ZIP Co de Phone Number [facility] Department [place] [address] * Phosphorus (08/27/2023 3:31 AM CDT) Phosphorus, pl 2.3 2.3 - 4.5 mg/dL [facility] Blood 08/27/2023 3:31 AM CDT 08/27/2023 4:05 AM CDT Delia Ashby MD LAB BLOOD ORDERABLES Final Result [facility] Department [place] [address] * Magnesium (08/27/2023 3:31 AM CDT) Magnesium 1.4 1.4 - 2.5 mg/dL [facility] Blood 08/27/2023 3:31 AM CDT 08/27/2023 4:05 AM CDT us Delia Ashby MD LAB BLOOD ORDERABLES Final Result [facility] Department [place] [address] * (ABNORMAL) CBC with auto differential (08/27/2023 3:31 AM CDT) [facility] WBC 12.5(H) 3.8 - 9.9 K/cumm [facility] Hgb 10.8(L) 13.0 - 17.5 g/dL [facility] Comment: Interpretive Data A reference range for this assay has not been established for patients with an unknown legal sex. Please refer to the laboratory test catalog for established sex-specific reference intervals. Current interpretive data was last revised on 2023. Hct 29.3(L) 38.9 - 50.3 % [facility] Comment: Interpretive Data A reference range for this assay has not been established for patients with an unknown legal sex. Please refer to the laboratory test catalog for established sex-specific reference intervals. Current interpretive data was last revised on 2023. Plt 290 150 - 400 K/cumm [facility] MPV 12.0 9.1 - 12.3 fL [facility] RBC 2.89(L) 4.30 - 5.80 M/cumm [facility] Comment: Interpretive Data A reference range for this assay has not been established for patients with an unknown legal sex. Please refer to the laboratory test catalog for established sex-specific reference intervals. Current interpretive data was last revised on 2023. MCV 101.4(H) 81.3 - 96.4 fL [facility] MCH 37.4(H) 27.1 - 33.3 pg [facility] MCHC 36.9(H) 32.3 - 35.7 g/dL [facility] RDW CV 18.7(H) 11.1 - 14.9 % [facility] RDW SD 68.2(H) 35.7 - 48.1 fL [facility] NRBC abs 0.03(H) 0.00 - 0.01 K/cumm [facility] Blood 08/27/2023 3:31 AM CDT 08/27/2023 4:06 AM CDT us Delia Ashby MD LAB BLOOD ORDERABLES Final Result Performing Organization Address [facility] Co de Phone Number [facility] Department [place] [address] * Troponin I high-sensitivity (08/26/2023 10:31 PM CDT) Trop I hs 8 <=35 ng/L [facility] Comment: Interpretive Data For further hscTnI resources including the diagnostic algorithm and an aid in interpretation, copy and paste this link: [email or web address].testcatalog.org/[email or web address] Current Interpretive Data last revised 2020. Blood 08/26/2023 10:3 1 PM CDT 08/26/2023 11:41 PM CDT us Maryam Gonzalez MD LAB BLOOD ORDERABLES F inal Result Performing Organization Address [facility] Co de Phone Number [facility] Department [place] [address] * MRI Abdomen MRCP W WO Contrast [...] AM CDT) Report Final Report: No growth [facility] Blood 08/26/2023 3:23 AM CDT 08/26/2023 4:18 AM CDT Narrative [facility] - 08/30/2023 7:00 AM CDT Collection->Peripheral 1. [...] organism identification may be performed using the [employer] Gram-Positive Blood Culture Assay. This assay detects microbial DNA in positive blood culture broth via hybridization of target DNA to capture oligonucleotides on a microarray. This assay has been cleared by the [place] Food and Drug Administration and its performance characteristics have been verified by the [facility] Laboratory. 5. ?For questions about this culture, contact the Microbiology Laboratory at [phone]. Interpretive data was last revised on 2020. Karena Verdugo MD LAB MICROBIOLOGY - GENER AL ORDERABLES Final Result [facility] Department [place] [address] * Blood culture Blood (08/26/2023 3:14 AM CDT) Report Final Report: No growth [facility] Blood 08/26/2023 3:14 AM CDT 08/26/2023 4:18 [...] organism identification may be performed using the [employer] Gram-Positive Blood Culture Assay. This assay detects microbial DNA in positive blood culture broth via hybridization of target DNA to capture oligonucleotides on a microarray. This assay has been cleared by the [place] Food and Drug Administration and its performance characteristics have been verified by the [facility]biology Laboratory. 5. ?For questions about this culture, contact the Microbiology Laboratory at [phone]. Interpretive data was last revised on 2020. Karena Verdugo MD LAB MICROBIOLOGY - GENER AL ORDERABLES Final Result [facility] Department [place] [address] * eGFR (08/26/2023 3:04 AM CDT) [facility] eGFR >90 90 - 130 mL/min/1. 73 m2 [facility] Comment: Interpretive Data Reference Interval Normal ?>/= [...] ORDERABLES Fin al Result Performing Organization Address [facility]/ZIP Co de Phone Number [facility] Department [place] [address] * (ABNORMAL) Differential, auto (08/26/2023 3:04 AM CDT) Neutrophil abs 5.5 1.7 - 6.5 K/cumm [facility] Imm gran abs 0.1 0.0 - 0.1 K/cumm [facility] Lymphocyte abs 4.4(H) 0.8 - 3.3 K/cumm [facility] Monocyte abs 2.3(H) 0.2 - 0.8 K/cumm [facility] Eosinophil abs 0.7(H) 0.0 - 0.5 K/cumm [facility] Basophil abs 0.0 0.0 - 0.1 K/cumm [facility] Neutrophil pct 42.1 % [facility] Comment: Consistent with previous result Interpretive Data Percent cell count reference ranges are not reported, since discordance with absolute values may lead to misinterpretation of CBC data. Current Interpretive Data was last revised on 2018. Imm gran pct 0.9 % [facility] Comment: Interpretive Data Percent cell count reference ranges are not reported, since discordance with absolute values may lead to misinterpretation of CBC data. Current Interpretive Data was last revised on 2018. Lymphocyte pct 33.6 % [facility] Comment: Interpretive Data Percent cell count reference ranges are not reported, since discordance with absolute values may lead to misinterpretation of CBC data. Current Interpretive Data was last revised on 2018. Monocyte pct 17.5 % [facility] Comment: Interpretive Data Percent cell count reference ranges are not reported, since discordance with absolute values may lead to misinterpretation of CBC data. Current Interpretive Data was last revised on 2018. Eosinophil pct 5.6 % [facility] Comment: Interpretive Data Percent cell count reference ranges are not reported, since discordance with absolute values may lead to misinterpretation of CBC data. Current Interpretive Data was last revised on 2018. Basophil pct 0.3 % [facility] Comment: Interpretive Data Percent cell count reference ranges are not reported, since discordance with absolute values may lead to misinterpretation of CBC data. Current Interpretive Data was last revised on 2018. Blood 08/26/2023 3:04 AM CDT 08/26/2023 3:40 AM CDT Olena Null MD LAB BLOOD ORDERABLES Final R esult Performing Organization Address [facility] Co de Phone Number [facility] [place] [address] * Tacrolimus level trough (08/26/2023 3:04 AM CDT) Tacrolimus trough 2.1 ng/mL [facility] Comment: Interpretive Data Testing performed by liquid chromatography-tandem mass spectrometry. ??Therapeutic concentrations vary depending on type of transplanted organ and time elapsed since transplant. ??Typical trough concentrations range from 5-15 ng/mL. ??This test was developed and its performance characteristics determined by the [facility] consistent with CLIA requirements. ??This test has not been cleared or approved by the [place] Food and Drug administration. ??Current interpretive data last reviewed 2020. Blood 08/26/2023 3:04 AM CDT 08/26/2023 3:40 AM CDT Delia Ashby MD LAB BLOOD ORDERABLES Final Result Performing Organization Address [facility] de Phone Number [facility] Department [place] [address] * (ABNORMAL) Hepatic function panel (08/26/2023 3:04 AM CDT) Bilirubin, total 5.3(H) 0.1 - 1.2 mg/dL [facility] Bilirubin, direct 4.4(H) 0.1 - 0.3 mg/dL [facility] Protein, pl 4.3(L) 6.5 - 8.5 g/dL [facility] Albumin 2.6(L) 3.5 - 5.0 g/dL [facility] Alk phos 213(H) 40 - 130 Units/L [facility] ALT 51 7 - 55 Units/L [facility] AST 72(H) 10 - 50 Units/L [facility] Blood 08/26/2023 3:04 AM CDT 08/26/2023 3:40 AM CDT Delia Ashby MD LAB BLOOD ORDERABLES Final Result Performing Organization Address City/[facility]/ZIP Co de Phone Number [facility] Department [place] [address] * (ABNORMAL) Basic metabolic panel (08/26/2023 3:04 AM CDT) [facility] Sodium 141 135 - 145 mmol/L [facility] Potassium, pl 3.6 3.3 - 4.9 mmol/L [facility] Chloride 112(H) 97 - 110 mmol/L [facility] CO2 22 22 - 32 mmol/L [facility] Anion gap 7 2 - 15 mmol/L [facility] BUN 10 6 - 25 mg/dL [facility] Creatinine 0.86 0.80 - 1.30 mg/dL [facility] Glucose 79 70 - 199 mg/dL [facility] Comment: Interpretive Data Fasting glucose >/= 126 [...] 2022. Calcium 7.3(L) 8.5 - 10.3 mg/dL [facility] Blood 08/26/2023 3:04 AM CDT 08/26/2023 3:40 AM CDT Delia Ashby MD LAB BLOOD ORDERABLES Final Result Performing Organization Address [facility]/ZIP Co de Phone Number [facility] Department [place] [address] * Phosphorus (08/26/2023 3:04 AM CDT) Pathologist [facility] [place] Phosphorus, pl 3.0 2.3 - 4.5 mg/dL [facility] Blood 08/26/2023 3:04 AM CDT 08/26/2023 3:40 AM CDT Delia Ashby MD LAB BLOOD ORDERABLES Final Result Performing Organization Address City/[facility]/ZIP Co de Phone Number [facility] Department [place] [address] * Magnesium (08/26/2023 3:04 AM CDT) [facility] Magnesium 1.7 1.4 - 2.5 mg/dL [facility] Blood 08/26/2023 3:04 AM CDT 08/26/2023 3:40 AM CDT Delia Ashby MD LAB BLOOD ORDERABLES Final Result Performing Organization Address City/[facility] de Phone Number [facility] Department [place] [address] * (ABNORMAL) CBC with auto differential (08/26/2023 3:04 AM CDT) [facility] WBC 13.0(H) 3.8 - 9.9 K/cumm [facility] Hgb 10.3(L) 13.0 - 17.5 g/dL [facility] Comment: Interpretive Data A reference range for this assay has not been established for patients with an unknown legal sex. Please refer to the laboratory test catalog for established sex-specific reference intervals. Current interpretive data was last revised on 2023. Hct 28.3(L) 38.9 - 50.3 % [facility] Comment: Interpretive Data A reference range for this assay has not been established for patients with an unknown legal sex. Please refer to the laboratory test catalog for established sex-specific reference intervals. Current interpretive data was last revised on 2023. Plt 259 150 - 400 K/cumm [facility] MPV 11.5 9.1 - 12.3 fL [facility] RBC 2.81(L) 4.30 - 5.80 M/cumm [facility] Comment: Interpretive Data A reference range for this assay has not been established for patients with an unknown legal sex. Please refer to the laboratory test catalog for established sex-specific reference intervals. Current interpretive data was last revised on 2023. MCV 100.7(H) 81.3 - 96.4 fL [facility] MCH 36.7(H) 27.1 - 33.3 pg [facility] MCHC 36.4(H) 32.3 - 35.7 g/dL [facility] RDW CV 18.7(H) 11.1 - 14.9 % [facility] RDW SD 69.0(H) 35.7 - 48.1 fL [facility] NRBC abs 0.00 0.00 - 0.01 K/cumm [facility] Blood 08/26/2023 3:04 AM CDT 08/26/2023 3:40 AM CDT Deila Ashby MD LAB BLOOD ORDERABLES Final Result Performing Organization Address City/[facility]/ZIP Co de Phone Number [facility] [place] [address] * (ABNORMAL) Lactate dehydrogenase (LD) (08/26/2023 3:04 AM CDT) Pathologist [facility] [place] Lactate dehydrogenase (LDH) 502(H) 100 - 250 Units/L [facility] Blood 08/26/2023 3:04 AM CDT 08/26/2023 3:40 AM CDT Narrative [facility] - 08/26/2023 4:11 AM CDT Wednesday and only. Morning draw. Delia Ashby MD LAB BLOOD ORDERABLES Final Result Performing Organization Address City/[facility]/ZIP Co de Phone Number [facility] [place] [address] * (ABNORMAL) Uric acid (08/26/2023 3:04 AM CDT) Pathologist [facility] [place] Uric acid 2.2(L) 3.0 - 8.0 mg/dL [facility] Blood 08/26/2023 3:04 AM CDT 08/26/2023 3:40 AM CDT Narrative [facility] - 08/26/2023 4:11 AM CDT Wednesday and only. Morning draw. . Delia Ashby MD LAB BLOOD ORDERABLES Final Result Performing Organization Address City/[facility]/ZIP Co de Phone Number [facility] [place] [address] * Type and screen (08/26/2023 3:04 AM CDT) [facility] Carol, indirect Negative Comment:Patient has previous antibody history ABO Rh A Positive [facility] Blood 08/26/2023 3:04 AM CDT 08/26/2023 3:53 AM CDT Narrative [facility] - 08/26/2023 5:49 AM CDT Has the patient had Daratumumab or Isatuximab in the past 6 months?->Unknown Delia Ashby MD LAB BLOOD BANK TEST ORDERA BLES Final Result [facility] [place] [address] * (ABNORMAL) Vancomycin level trough Draw trough 30 minutes prior to 4th dose. (08/26/2023 3:04 AM CDT) [facility] Vancomycin trough <4.0(L) 10.0 - 20.0 mcg/mL [facility] Comment:Reviewed Blood 08/26/2023 3:04 AM CDT 08/26/2023 3:40 AM CDT Narrative [facility] - 08/26/2023 4:27 AM CDT Draw trough 30 minutes prior to 4th dose. us Olena Null MD LAB BLOOD ORDERABLES Final R esult [facility] [place] [address] * (ABNORMAL) Respiratory pathogen panel Nasopharyngeal (08/25/2023 5:34 PM CDT) [facility] Influenza A RNA Not Detected Not Detected [facility] Influenza B RNA Not Detected Not Detected [facility] RSV RNA Not Detected Not Detected [facility] COVID-19 RNA Not Detected Not Detected [facility] Coronavirus 229E RNA Not Detected Not Detected [facility] Coronavirus HKU1 RNA Not Detected Not Detected [facility] Coronavirus NL63 RNA Not Detected Not Detected [facility] Coronavirus OC43 RNA Not Detected Not Detected [facility] Adenovirus DNA Not Detected Not Detected [facility] Metapneumovirus RNA Not Detected Not Detected [facility] Rhinovirus/Enterov irus RNA Detected(A) Not Detected [facility] Parainfluenza 1 RNA Not Detected Not Detected [facility] Parainfluenza 2 RNA Not Detected Not Detected [facility] Parainfluenza 3 RNA Not Detected Not Detected [facility] Parainfluenza 4 RNA Not Detected Not Detected [facility] B. pertussis DNA Not Detected Not Detected [facility] B. parapertussis DNA Not Detected Not Detected [facility] C. pneumoniae DNA Not Detected Not Detected [facility] M. pneumoniae DNA Not Detected Not Detected [facility] Nasopharyngeal 08/25/2023 5: 34 PM CDT 08/25/2023 5:43 PM CDT Narrative [facility] - 08/25/2023 7:14 PM CDT Is the Patient experiencing symptoms consistent with COVID?->Yes Date of Symptom Onset->08/23/23 Reason for testing?->Symptomatic Surveillance testing for transplant patient?->No ??Interpretive Data The [employer] Film[employer] Respiratory Panel (RP2.1) assay is a [...] assay has FDA clearance for testing of DRAPERY INSTALLER swabs. ??The performance of additional specimen types has been assessed by the performing laboratory. ??The performance characteristics of this assay have been determined by [facility]. Current interpretive data was last revised on 22. Karena Verdugo MD LAB MICROBIOLOGY - [facility] AL ORDERABLES Final Result [facility] [place] [address] * US Vein Duplex Lower Extremity Bilateral Complete (08/25/2023 4:32 PM CDT) Anatomical Region Laterality Modality Vascular Bilateral Ultrasound 08/25/2023 5:52 PM CDT Narrative 08/25/2023 11:18 PM CDT [facility] - Department of Vascular Surgery, Vascular Laboratory [address] [place] [id number] Lower Extremity Venous Ultrasound Report Patient Name: BEKA LARES J : 1995 (28y 6m) Study Date: 08/25/2023 5:52:54 PM Gender: M Tech: Lily BLACKWELL Location: [id number] Ref.Provider: KARENA MAK Quality: Adequate Order Provider: KARENA MAK Procedures: Vascular Report: Venous Duplex imaging was performed bilaterally in the lower extremities. The common femoral, femoral, popliteal, posterior tibial, peroneal veins were evaluated for patency, spontaneity and phasicity with Doppler, compression and augmentation maneuvers. Great saphenous vein proximal at the junction was evaluated with compression maneuvers. Indications: Edema. Findings: Performing Casing Tier: Carol Blackwell RVT. Bilateral: Venous Doppler signals [...] above. Electronically Signed By: Severino Pickett MD [facility] 2023-08-25 23:18:29 CDT CC: CC: Procedure Note Severino Pickett MD - 08/25/2023 [facility] - Department of Vascular Surgery,Vascular Laboratory [address] [place] [id number] Lower Extremity Venous Ultrasound Report Patient Name: BEKA LARES JPatient ID: [id number] : 1995 (28y 6m)Study Date: 08/25/2023 5:52:54 PM Gender: MAccession #: [id number] Tech: Lily AROLDONLocation: [id number] Ref.Provider: KARENA MAKQuality: Adequate Order Provider: SCOTT MAKccount #: [id number] Procedures: Vascular Report: Venous Duplex imaging was performed bilaterally in the lower extremities.The common femoral, femoral, popliteal, posterior tibial, peroneal veins wereevaluated for patency, spontaneity and phasicity with Doppler, compression and augmentationmaneuvers. Great saphenous vein proximal at the junction was evaluated with compressionmaneuvers. Indications: Edema. Findings: Performing Casing Tier: Carol Blackwell RVT. Bilateral: Venous Doppler signals [...] above. Electronically Signed By: Severino Pickett MD [facility] 2023-08-25 23:18:29 CDT CC: CC: us Karena Verdugo MD IM US PROCEDURES Final Result * Vancomycin level trough (08/25/2023 5:34 AM CDT) [facility] Vancomycin trough 10.3 10.0 - 20.0 mcg/mL [facility] Blood 08/25/2023 5:34 AM CDT 08/25/2023 5:42 AM CDT us Anita Gillespie MD LAB BLOOD ORDERABLES Final Result Performing Organization Address [facility] de Phone Number [facility] [place] [address] * (ABNORMAL) Manual Differential (08/25/2023 5:33 AM CDT) [facility] Differential Auto [facility] RBC morphology Present(A) [facility] Anisocytosis Marked(A) [facility] Poikilocytosis Marked(A) [facility] Macrocytes > 15/HPF(A) [facility] Schistocytes 1-2/HPF(A) [facility] Acanthocytes 3-7/HPF(A) [facility] Echinocytes 8-15/HPF(A ) [facility] Blood 08/25/2023 5:33 AM CDT 08/25/2023 5:58 AM CDT us Olena Null MD LAB BLOOD ORDERABLES Final R esult Performing Organization Address [facility] Co de Phone Number [facility] [place] [address] * eGFR (08/25/2023 5:33 AM CDT) [facility] eGFR >90 90 - 130 mL/min/1. 73 m2 [facility] Comment: Interpretive Data Reference Interval Normal ?>/= [...] MD LAB BLOOD ORDERABLES Fin al Result [facility] [place] [address] * (ABNORMAL) Differential, auto (08/25/2023 5:33 AM CDT) Neutrophil abs 5.1 1.7 - 6.5 K/cumm [facility] Imm gran abs 0.1 0.0 - 0.1 K/cumm [facility] Lymphocyte abs 5.0(H) 0.8 - 3.3 K/cumm [facility] Monocyte abs 2.2(H) 0.2 - 0.8 K/cumm [facility] Eosinophil abs 0.9(H) 0.0 - 0.5 K/cumm [facility] Basophil abs 0.1 0.0 - 0.1 K/cumm [facility] Neutrophil pct 38.1 % [facility] Comment: Confirmed by smear review Interpretive Data Percent cell count reference ranges are not reported, since discordance with absolute values may lead to misinterpretation of CBC data. Current Interpretive Data was last revised on 2018. Imm gran pct 0.6 % [facility] Comment: Interpretive Data Percent cell count reference ranges are not reported, since discordance with absolute values may lead to misinterpretation of CBC data. Current Interpretive Data was last revised on 2018. Lymphocyte pct 37.6 % [facility] Comment: Interpretive Data Percent cell count reference ranges are not reported, since discordance with absolute values may lead to misinterpretation of CBC data. Current Interpretive Data was last revised on 2018. Monocyte pct 16.7 % [facility] Comment: Interpretive Data Percent cell count reference ranges are not reported, since discordance with absolute values may lead to misinterpretation of CBC data. Current Interpretive Data was last revised on 2018. Eosinophil pct 6.6 % [facility] Comment: Interpretive Data Percent cell count reference ranges are not reported, since discordance with absolute values may lead to misinterpretation of CBC data. Current Interpretive Data was last revised on 2018. Basophil pct 0.4 % [facility] Comment: Interpretive Data Percent cell count reference ranges are not reported, since discordance with absolute values may lead to misinterpretation of CBC data. Current Interpretive Data was last revised on 2018. Blood 08/25/2023 5:33 AM CDT 08/25/2023 5:40 AM CDT us Olena Null MD LAB BLOOD ORDERABLES Final R esult [facility] Department [place] [address] * Tacrolimus level trough (08/25/2023 5:33 AM CDT) Tacrolimus trough 4.2 ng/mL [facility] Comment: Interpretive Data Testing performed by liquid chromatography-tandem mass spectrometry. ??Therapeutic concentrations vary depending on type of transplanted organ and time elapsed since transplant. ??Typical trough concentrations range from 5-15 ng/mL. ??This test was developed and its performance characteristics determined by the [facility] consistent with CLIA requirements. ??This test has not been cleared or approved by the [place] Food and Drug administration. ??Current interpretive data last reviewed 2020. Blood 08/25/2023 5:33 AM CDT 08/25/2023 5:40 AM CDT Delia Ashby MD LAB BLOOD ORDERABLES Final Result Performing Organization Address City/[facility]/ZIP Co de Phone Number [facility] [place] [address] * (ABNORMAL) Hepatic function panel (08/25/2023 5:33 AM CDT) Bilirubin, total 5.1(H) 0.1 - 1.2 mg/dL [facility] Bilirubin, direct See Comment 0.1 - 0.3 mg/dL [facility] Comment:Credited; Hemolyzed Specimen Protein, pl 4.2(L) 6.5 - 8.5 g/dL [facility] Albumin 2.5(L) 3.5 - 5.0 g/dL [facility] Alk phos 213(H) 40 - 130 Units/L [facility] ALT 57(H) 7 - 55 Units/L [facility] AST 94(H) 10 - 50 Units/L [facility] Comment:Hemolyzed; result ma y be falsely elevated Blood 08/25/2023 5:33 AM CDT 08/25/2023 5:40 AM CDT Delia Ashby MD LAB BLOOD ORDERABLES Final Result [facility] [place] [address] * (ABNORMAL) Basic metabolic panel (08/25/2023 5:33 AM CDT) Sodium 140 135 - 145 mmol/L [facility] Potassium, pl 5.1(H) 3.3 - 4.9 mmol/L [facility] Comment:Hemolyzed; Potassium value may be falsely elevated by as much as 0.6-1.0 mmol/L. Suggest redraw and reanalysis. Chloride 112(H) 97 - 110 mmol/L [facility] CO2 21(L) 22 - 32 mmol/L [facility] Anion gap 7 2 - 15 mmol/L [facility] BUN 10 6 - 25 mg/dL [facility] Creatinine 0.84 0.80 - 1.30 mg/dL [facility] Glucose 83 70 - 199 mg/dL [facility] Comment: Interpretive Data Fasting glucose >/= 126 [...] 2022. Calcium 6.9(L) 8.5 - 10.3 mg/dL [facility] Blood 08/25/2023 5:33 AM CDT 08/25/2023 5:40 AM CDT us Delia Ashby MD LAB BLOOD ORDERABLES Final Result [facility] Department [place] [address] * Phosphorus (08/25/2023 5:33 AM CDT) Phosphorus, pl 2.5 2.3 - 4.5 mg/dL [facility] Blood 08/25/2023 5:33 AM CDT 08/25/2023 5:40 AM CDT Delia Ashby MD LAB BLOOD ORDERABLES Final Result [facility] [place] [address] * Magnesium (08/25/2023 5:33 AM CDT) Pathologist [facility] Magnesium 1.9 1.4 - 2.5 mg/dL [facility] Blood 08/25/2023 5:33 AM CDT 08/25/2023 5:40 AM CDT Delia Ashby MD LAB BLOOD ORDERABLES Final Result Performing Organization Address [facility] de Phone Number [facility] [place] [address] * (ABNORMAL) CBC with auto differential (08/25/2023 5:33 AM CDT) Pathologist [facility] WBC 13.3(H) 3.8 - 9.9 K/cumm [facility] Hgb 10.5(L) 13.0 - 17.5 g/dL [facility] Comment: Interpretive Data A reference range for this assay has not been established for patients with an unknown legal sex. Please refer to the laboratory test catalog for established sex-specific reference intervals. Current interpretive data was last revised on 2023. Hct 28.7(L) 38.9 - 50.3 % [facility] Comment: Interpretive Data A reference range for this assay has not been established for patients with an unknown legal sex. Please refer to the laboratory test catalog for established sex-specific reference intervals. Current interpretive data was last revised on 2023. Plt 256 150 - 400 K/cumm [facility] MPV 12.2 9.1 - 12.3 fL [facility] RBC 2.83(L) 4.30 - 5.80 M/cumm [facility] Comment: Interpretive Data A reference range for this assay has not been established for patients with an unknown legal sex. Please refer to the laboratory test catalog for established sex-specific reference intervals. Current interpretive data was last revised on 2023. MCV 101.4(H) 81.3 - 96.4 fL [facility] MCH 37.1(H) 27.1 - 33.3 pg [facility] MCHC 36.6(H) 32.3 - 35.7 g/dL [facility] RDW CV 18.9(H) 11.1 - 14.9 % [facility] RDW SD 69.3(H) 35.7 - 48.1 fL [facility] NRBC abs 0.00 0.00 - 0.01 K/cumm [facility] Blood 08/25/2023 5:33 AM CDT 08/25/2023 5:40 AM CDT Delia Ashby MD LAB BLOOD ORDERABLES Final Result Performing Organization Address City/State/[facility] Co de Phone Number [facility] Department [place] [address] * Blood culture Blood (08/24/2023 11:09 AM CDT) Report Final Report: No growth [facility] Blood 08/24/2023 11:0 9 AM CDT 08/24/2023 11:21 AM CDT Narrative [facility] - 08/28/2023 12:00 PM CDT Collection->Peripheral 1. [...] organism identification may be performed using the [employer] Gram-Positive Blood Culture Assay. This assay detects microbial DNA in positive blood culture broth via hybridization of target DNA to capture oligonucleotides on a microarray. This assay has been cleared by the [place] Food and Drug Administration and its performance characteristics have been verified by the [facility]. 5. ?For questions about this culture, contact the Microbiology Laboratory at [phone]. Interpretive data was last revised on 2020. us Karena Verdugo MD LAB MICROBIOLOGY - GENER AL ORDERABLES Final Result [facility] Department [place] [address] * Blood culture Blood (08/24/2023 11:09 AM CDT) Report Final Report: No growth [facility] Blood 08/24/2023 11:0 9 AM CDT 08/24/2023 11:20 AM CDT Narrative [facility] - 08/28/2023 12:00 PM CDT Collection->Peripheral 1. [...] organism identification may be performed using the [employer] Gram-Positive Blood Culture Assay. This assay detects microbial DNA in positive blood culture broth via hybridization of target DNA to capture oligonucleotides on a microarray. This assay has been cleared by the [place] Food and Drug Administration and its performance characteristics have been verified by the [facility]biology [facility]. 5. ?For questions about this culture, contact the Microbiology Laboratory at [phone]. Interpretive data was last revised on 2020. us Karena Verdugo MD LAB MICROBIOLOGY - GENER AL ORDERABLES Final Result [facility] Department [place] [address] * TRANSTHORACIC ECHO (TTE) COMPLETE W DOPPLER/CF WO CONTRAST (08/24/2023 10:26 AM CDT) LV EF 62 % CARDIOREPORT Anatomical Region Laterality Modality Ultrasound 08/24/2023 7:00 AM CDT Narrative 08/24/2023 10:40 AM CDT Patient name: Beka Lares Date of test: 08/24/2023 Type of test: TTE w/Doppler Hospital #: 0 Date of : 1995 (M) Casing Tier: Saige Carrasco RDCS Referring Physician: OLENA NULL MD Contrast Agent: Contrast Administered by: Supervised/Interpreted by: Sharita Colorado MD Diagnosis: Location: [facility] Reason for test: peripheral edema MV [...] 2=Hypo 3=Akinetic 4=Dyskin./Aneurysm 0=Not visualized) Parasternal Long Hoven:MAS=1 BAS=1 MIL=1 NGUYỄN=1 Parasternal Short Hoven:MAS=1 MIS=1 NC=1 MIL=1 MAL=1 MA=1 Apical 4 Chambers:=1 MIS=1 BIS=1 BAL=1 MAL=1 AL=1 AC=1 Apical 2 Chambers:AI=1 NC=1 BI=1 BA=1 MA=1 AA=1 AC=1 LV Global [...] MD By signing this report, the attending bakery sales clerk certifies that he or she has personally supervised and interpreted the echocardiogram and has reviewed and or edited and agrees with the written comments contained within the report. Procedure Note Sharita Colorado MD - 08/24/2023 Patient name: Beka Lares Date of test: 08/24/2023 Type of test: TTE w/Doppler [facility] #: 0 Date of : 1995 (M) Casing Tier: Saige Carrasco [facility] Referring Physician: OLENA NULL MD Contrast Agent: Contrast Administered by: Supervised/Interpreted by: Sharita Colorado MD Diagnosis: Location: [facility] Reason for test: peripheral edema MV [...] 2=Hypo 3=Akinetic 4=Dyskin./Aneurysm 0=Not visualized) Parasternal Long Hoven:MAS=1 BAS=1 MIL=1 NGUYỄN=1 Parasternal Short Hoven:MAS=1 MIS=1 NC=1 MIL=1 MAL=1 MA=1 Apical 4 Chambers:=1 MIS=1 BIS=1 BAL=1 MAL=1 AL=1 AC=1 Apical 2 Chambers:AI=1 NC=1 BI=1 BA=1 MA=1 AA=1 AC=1 LV Global [...] MD By signing this report, the attending bakery sales clerk certifies that he or she has personally supervised and interpreted the echocardiogram and has reviewed and or edited and agrees with the written comments contained within the report. us Olena Null MD CV ECHO PROCEDURES Final Res ult * eGFR (08/24/2023 3:31 AM CDT) [facility] eGFR >90 90 - 130 mL/min/1. 73 m2 [facility] Comment: Interpretive Data Reference Interval Normal ?>/= [...] MD LAB BLOOD ORDERABLES Final R esult [facility] Department [place] [address] * (ABNORMAL) Differential, auto (08/24/2023 3:31 AM CDT) Neutrophil abs 7.9(H) 1.7 - 6.5 K/cumm [facility] Imm gran abs 0.1 0.0 - 0.1 K/cumm [facility] Lymphocyte abs 3.8(H) 0.8 - 3.3 K/cumm [facility] Monocyte abs 1.9(H) 0.2 - 0.8 K/cumm [facility] Eosinophil abs 0.5 0.0 - 0.5 K/cumm [facility] Basophil abs 0.1 0.0 - 0.1 K/cumm [facility] Neutrophil pct 55.1 % [facility] Comment: Interpretive Data Percent cell count reference ranges are not reported, since discordance with absolute values may lead to misinterpretation of CBC data. Current Interpretive Data was last revised on 2018. Imm gran pct 0.6 % [facility] Comment: Interpretive Data Percent cell count reference ranges are not reported, since discordance with absolute values may lead to misinterpretation of CBC data. Current Interpretive Data was last revised on 2018. Lymphocyte pct 26.8 % [facility] Comment: Interpretive Data Percent cell count reference ranges are not reported, since discordance with absolute values may lead to misinterpretation of CBC data. Current Interpretive Data was last revised on 2018. Monocyte pct 13.4 % [facility] Comment: Interpretive Data Percent cell count reference ranges are not reported, since discordance with absolute values may lead to misinterpretation of CBC data. Current Interpretive Data was last revised on 2018. Eosinophil pct 3.7 % [facility] Comment: Interpretive Data Percent cell count reference ranges are not reported, since discordance with absolute values may lead to misinterpretation of CBC data. Current Interpretive Data was last revised on 2018. Basophil pct 0.4 % [facility] Comment: Interpretive Data Percent cell count reference ranges are not reported, since discordance with absolute values may lead to misinterpretation of CBC data. Current Interpretive Data was last revised on 2018. Blood 08/24/2023 3:31 AM CDT 08/24/2023 3:49 AM CDT us Olena Null MD LAB BLOOD ORDERABLES Final R esult [facility] Department [place] [address] * (ABNORMAL) Protime-INR (08/24/2023 3:31 AM CDT) PT 17.2(H) 10.3 - 13.7 sec [facility] INR 1.51(H) 0.90 - 1.20 [facility] Comment: Interpretive data Oral anticoagulant therapeutic ranges: Venous thromboembolism prophylaxis or treatment: 2.0-3.0 CARDIOLOGY Standard range: 2.0-3.0 High-intensity range: 2.5-3.5 Refer to indication-specific guidelines for appropriate target ranges for prosthetic heart valve replacement. Current interpretive data was last revised on 2019. Blood 08/24/2023 3:31 AM CDT 08/24/2023 3:48 AM CDT Delia Ashby MD LAB BLOOD ORDERABLES Final Result Performing Organization Address [facility] Co de Phone Number [facility] [place] [address] * aPTT (08/24/2023 3:31 AM CDT) aPTT 34 28 - 38 sec [facility] Comment: Interpretive Data Heparin therapeutic range: 66.0 - 100.0 seconds. Range based on correlation with therapeutic heparin activity range of 0.3 - 0.7 Units/mL. Current interpretive data was last revised on 2023. Blood 08/24/2023 3:31 AM CDT 08/24/2023 3:48 AM CDT Delia Ashby MD LAB BLOOD ORDERABLES Final Result Performing Organization Address [facility] de Phone Number [facility] [place] [address] * (ABNORMAL) Lactate dehydrogenase (LD) (08/24/2023 3:31 AM CDT) Lactate dehydrogenase (LDH) 527(H) 100 - 250 Units/L [facility] Blood 08/24/2023 3:31 AM CDT 08/24/2023 3:50 AM CDT Narrative [facility] - 08/24/2023 4:18 AM CDT Wednesday and only. Morning draw. Delia Ashby MD LAB BLOOD ORDERABLES Final Result Performing Organization Address [facility] Co de Phone Number [facility] [place] [address] * Uric acid (08/24/2023 3:31 AM CDT) Pathologist [facility] [place] Uric acid 3.5 3.0 - 8.0 mg/dL [facility] Blood 08/24/2023 3:31 AM CDT 08/24/2023 3:50 AM CDT Narrative [facility] - 08/24/2023 4:18 AM CDT Wednesday and only. Morning draw. . Delia Ashby MD LAB BLOOD ORDERABLES Final Result Performing Organization Address City/[facility] Co de Phone Number [facility] [place] [address] * Type and screen (08/24/2023 3:31 AM CDT) [facility] ABO Rh A Positive Carol, indirect Negative [facility] Comment:Patient has previous antibody history Blood 08/24/2023 3:31 AM CDT 08/24/2023 3:45 AM CDT Narrative [facility] - 08/24/2023 4:50 AM CDT Has the patient had Daratumumab or Isatuximab in the past 6 months?->Unknown Delia Ashby MD LAB BLOOD BANK TEST ORDERA BLES Final Result Performing Organization Address [facility] Co de Phone Number [facility] Department [place] [address] * Phosphorus (08/24/2023 3:31 AM CDT) Pathologist [facility] [place] Phosphorus, pl 3.4 2.3 - 4.5 mg/dL [facility] Blood 08/24/2023 3:31 AM CDT 08/24/2023 3:50 AM CDT Delia Ashby MD LAB BLOOD ORDERABLES Final Result Performing Organization Address City/[facility] Co de Phone Number [facility] Department [place] [address] * (ABNORMAL) Comprehensive metabolic panel (08/24/2023 3:31 AM CDT) Sodium 136 135 - 145 mmol/L [facility] Potassium, pl 4.2 3.3 - 4.9 mmol/L [facility] Chloride 108 97 - 110 mmol/L [facility] CO2 21(L) 22 - 32 mmol/L [facility] Anion gap 7 2 - 15 mmol/L [facility] BUN 10 6 - 25 mg/dL [facility] Creatinine 0.92 0.80 - 1.30 mg/dL [facility] Glucose 92 70 - 199 mg/dL [facility] Comment: Interpretive Data Fasting glucose >/= 126 [...] 2022. Calcium 7.6(L) 8.5 - 10.3 mg/dL [facility] Bilirubin, total 5.2(H) 0.1 - 1.2 mg/dL [facility] Protein, pl 4.4(L) 6.5 - 8.5 g/dL [facility] Albumin 2.7(L) 3.5 - 5.0 g/dL [facility] Alk phos 245(H) 40 - 130 Units/L [facility] ALT 60(H) 7 - 55 Units/L [facility] AST 88(H) 10 - 50 Units/L [facility] Blood 08/24/2023 3:31 AM CDT 08/24/2023 3:50 AM CDT Olena Null MD LAB BLOOD ORDERABLES Final R esult [facility] [place] [address] * Magnesium (08/24/2023 3:31 AM CDT) Pathologist [facility] [place] Magnesium 1.5 1.4 - 2.5 mg/dL [facility] Blood 08/24/2023 3:31 AM CDT 08/24/2023 3:50 AM CDT Delia Ashby MD LAB BLOOD ORDERABLES Final Result Performing Organization Address [facility] Co de Phone Number [facility] [place] [address] * (ABNORMAL) CBC with auto differential (08/24/2023 3:31 AM CDT) [facility] WBC 14.3(H) 3.8 - 9.9 K/cumm [facility] Hgb 10.4(L) 13.0 - 17.5 g/dL [facility] Comment: Interpretive Data A reference range for this assay has not been established for patients with an unknown legal sex. Please refer to the laboratory test catalog for established sex-specific reference intervals. Current interpretive data was last revised on 2023. Hct 28.4(L) 38.9 - 50.3 % [facility] Comment: Interpretive Data A reference range for this assay has not been established for patients with an unknown legal sex. Please refer to the laboratory test catalog for established sex-specific reference intervals. Current interpretive data was last revised on 2023. Plt 252 150 - 400 K/cumm [facility] MPV 12.2 9.1 - 12.3 fL [facility] RBC 2.79(L) 4.30 - 5.80 M/cumm [facility] Comment: Interpretive Data A reference range for this assay has not been established for patients with an unknown legal sex. Please refer to the laboratory test catalog for established sex-specific reference intervals. Current interpretive data was last revised on 2023. MCV 101.8(H) 81.3 - 96.4 fL [facility] MCH 37.3(H) 27.1 - 33.3 pg [facility] MCHC 36.6(H) 32.3 - 35.7 g/dL [facility] RDW CV 18.7(H) 11.1 - 14.9 % [facility] RDW SD 69.1(H) 35.7 - 48.1 fL [facility] NRBC abs 0.02(H) 0.00 - 0.01 K/cumm [facility] Blood 08/24/2023 3:31 AM CDT 08/24/2023 3:49 AM CDT us Delia Ashby MD LAB BLOOD ORDERABLES Final Result Performing Organization Address [facility] de Phone Number [facility] [place] [address] * Protein / creatinine ratio, urine, random (08/23/2023 9:38 PM CDT) Protein, ur, quant 7.7 mg/dL [facility] Comment: Interpretive Data No reference range established. Current interpretive data was last revised 2019. Creatinine Ur 68.8 mg/dL [facility] Comment: Interpretive Data No reference range established. Current interpretive data was last revised 2019. Protein/creatinin e ratio 111.9 0.0 - 180.0 mg/g CR [facility] Urine 08/23/2023 9:38 PM CDT 08/23/2023 10:00 PM CDT us Olena Null MD LAB URINE ORDERABLES Final R esult Performing Organization Address [facility] Co de Phone Number [facility] Department [place] [address] * (ABNORMAL) Urinalysis reflex to microscopic and culture Urine (08/23/2023 9:38 PM CDT) Color, ur Yellow Yellow [facility] Clarity, ur Clear Clear [facility] Specific gravity, ur >1.042(H) 1.003 - 1.030 [facility] pH, urine 6.5 [facility] Comment: Interpretive Data ? Urine pH is affected by diet, medications, systemic acid-base disturbances, and renal tubular function. ??pH may affect urinary stone formation. ??For example, urine pH below 6.0 may help reduce the tendency for calcium phosphate stones and pH greater than 6.0 may reduce the tendency for uric acid stone formation. Source: [facility] Current Interpretive Data was last revised on 2017 Protein, ur ql Negative Negative [facility] Glucose, ur ql Negative Negative [facility] Ketones, ur Negative Negative [facility] Bilirubin, ur Negative Negative [facility] Blood, ur Negative Negative [facility] Urobilinogen, ur <2.0 <2.0 mg/dL [facility] Nitrite, ur Negative Negative [facility] Leukocyte esterase, ur Negative Negative [facility] UA reflex comment Reflex conditions for microscopic UA and culture not met. [facility] Urine 08/23/2023 9:38 PM CDT 08/23/2023 9:45 PM CDT Olena Null MD LAB MICROBIOLOGY - GENERAL O RDERABLES Final Result [facility] Department [place] [address] * MRSA Only (Staphylococcus aureus) Culture Nasal (08/23/2023 9:38 PM CDT) Report Final Report: Negative [facility] Nasal 08/23/2023 9:38 PM CDT 08/23/2023 10:01 PM CDT Narrative [facility] - 08/25/2023 12:17 AM CDT Testing performed by [facility] Microbiology Laboratory ([phone]). Olena Null MD LAB MICROBIOLOGY - GENERAL O RDERABLES Final Result Performing Organization Address [facility] Co de Phone Number [facility] Department [place] [address] * Stool culture Stool Rectum (08/23/2023 5:57 PM CDT) Direct Specimen Exam Shiga Toxin Testing: Antigen detection assay for Shiga-toxin NEGATIVE for Shiga Toxin 1 and Shiga Toxin 2. [facility] Report Final Report: No growth of enteric bacterial pathogens [facility] Stool (Rectum) 08/23/2023 5: 57 PM CDT 08/23/2023 9:26 PM CDT Narrative [facility] - 08/27/2023 2:37 PM CDT Specimen received in a sterile container. Testing performed by [facility]biology Laboratory ([phone]). Routine stool cultures include procedures to detect Salmonella, Shigella, Edwardsiella, Aeromonas, Pleisiomonas, Campylobacter, Yersinia, E. coli O157, and Shiga-like toxins. ?? Vibrio is cultured only upon special request. ??If Vibrio is suspected, please call the laboratory at [phone]. Interpretive data was last updated March 08, 2017. Olena Null MD LAB MICROBIOLOGY - GENERAL O RDERABLES Final Result Performing Organization Address [facility] de Phone Number [facility] Department [place] [address] * Leukocytes, fecal (08/23/2023 5:57 PM CDT) WBC, fecal No leukocytes No leukocytes [facility] Comment: Interpretive Data Testing performed by microsopy. Current Interpretive Data was last revised on 2023 Stool 08/23/2023 5:57 PM CDT 08/23/2023 9:48 PM CDT Olena Null MD LAB BODY FLUIDS AND STOOLS O RDERABLES Final Result Performing Organization Address City/[facility]/ZIP Co de Phone Number [facility] Department [place] [address] * TSH reflex to free T4 (08/23/2023 5:47 PM CDT) TSH 3.92 0.30 - 4.20 mcIUnit/mL [facility] Blood 08/23/2023 5:47 PM CDT 08/23/2023 6:19 PM CDT us Anita Gillespie MD LAB BLOOD ORDERABLES Final Result Performing Organization Address [facility] Co de Phone Number [facility] [place] [address] * Folate (08/23/2023 5:47 PM CDT) Pathologist [facility] Folic acid See Comment >=5.0 ng/mL [facility] Comment: Credited; Hemolyzed Specimen Telephone report made to: Nancy Alvarez (RN) on 08/23/2023 19:29:48 CDT by Nidhi . Blood 08/23/2023 5:47 PM CDT 08/23/2023 6:19 PM CDT us Anita Gillespie MD LAB BLOOD ORDERABLES Final Result Performing Organization Address [facility] Co de Phone Number [facility] Department [place] [address] * (ABNORMAL) Vitamin B12 (08/23/2023 5:47 PM CDT) Pathologist [facility] Vitamin B12 1,349(H) 230 - 1,250 pg/mL [facility] Blood 08/23/2023 5:47 PM CDT 08/23/2023 6:19 PM CDT Anita Gillespie MD LAB BLOOD ORDERABLES Final Result [facility] Department [place] [address] * eGFR (08/23/2023 5:47 PM CDT) [facility] eGFR >90 90 - 130 mL/min/1. 73 m2 [facility] Comment: Interpretive Data Reference Interval Normal ?>/= [...] BLOOD ORDERABLES Final R esult [facility] Department [place] [address] * (ABNORMAL) Differential, auto (08/23/2023 5:47 PM CDT) Neutrophil abs 6.7(H) 1.7 - 6.5 K/cumm [facility] Imm gran abs 0.1 0.0 - 0.1 K/cumm [facility] Lymphocyte abs 4.4(H) 0.8 - 3.3 K/cumm [facility] Monocyte abs 2.0(H) 0.2 - 0.8 K/cumm [facility] Eosinophil abs 0.6(H) 0.0 - 0.5 K/cumm [facility] Basophil abs 0.1 0.0 - 0.1 K/cumm [facility] Neutrophil pct 48.4 % [facility] Comment: Interpretive Data Percent cell count reference ranges are not reported, since discordance with absolute values may lead to misinterpretation of CBC data. Current Interpretive Data was last revised on 2018. Imm gran pct 0.4 % [facility] Comment: Interpretive Data Percent cell count reference ranges are not reported, since discordance with absolute values may lead to misinterpretation of CBC data. Current Interpretive Data was last revised on 2018. Lymphocyte pct 32.0 % [facility] Comment: Interpretive Data Percent cell count reference ranges are not reported, since discordance with absolute values may lead to misinterpretation of CBC data. Current Interpretive Data was last revised on 2018. Monocyte pct 14.4 % [facility] Comment: Interpretive Data Percent cell count reference ranges are not reported, since discordance with absolute values may lead to misinterpretation of CBC data. Current Interpretive Data was last revised on 2018. Eosinophil pct 4.4 % [facility] Comment: Interpretive Data Percent cell count reference ranges are not reported, since discordance with absolute values may lead to misinterpretation of CBC data. Current Interpretive Data was last revised on 2018. Basophil pct 0.4 % [facility] Comment: Interpretive Data Percent cell count reference ranges are not reported, since discordance with absolute values may lead to misinterpretation of CBC data. Current Interpretive Data was last revised on 2018. Blood 08/23/2023 5:47 PM CDT 08/23/2023 6:19 PM CDT Olena Null MD LAB BLOOD ORDERABLES Final R esult Performing Organization Address [facility] [place] [address] * Type and screen (08/23/2023 5:47 PM CDT) Carol, indirect Negative Comment:Patient has previous antibody history ABO Rh A Positive [facility] Blood 08/23/2023 5:47 PM CDT 08/23/2023 5:59 PM CDT Narrative [facility] - 08/23/2023 7:10 PM CDT Has the patient had Daratumumab or Isatuximab in the past 6 months?->Unknown Olena Null MD LAB BLOOD BANK TEST ORDERABL ES Final Result Performing Organization Address [facility] Co de Phone Number [facility] [place] [address] * Phosphorus (08/23/2023 5:47 PM CDT) Phosphorus, pl 4.4 2.3 - 4.5 mg/dL [facility] Blood 08/23/2023 5:47 PM CDT 08/23/2023 6:19 PM CDT Olena Null MD LAB BLOOD ORDERABLES Final R esult Performing Organization Address City/[facility] Co de Phone Number [facility] [place] [address] * Magnesium (08/23/2023 5:47 PM CDT) Magnesium 1.6 1.4 - 2.5 mg/dL [facility] Blood 08/23/2023 5:47 PM CDT 08/23/2023 6:19 PM CDT Olena Null MD LAB BLOOD ORDERABLES Final R esult [facility] Department [place] [address] * (ABNORMAL) Comprehensive metabolic panel (08/23/2023 5:47 PM CDT) Sodium 140 135 - 145 mmol/L [facility] Potassium, pl 5.2(H) 3.3 - 4.9 mmol/L [facility] Comment:Hemolyzed; Potassium value may be falsely elevated by as much as 0.3-0.5 mmol/L. Suggest redraw and reanalysis. Chloride 111(H) 97 - 110 mmol/L [facility] CO2 21(L) 22 - 32 mmol/L [facility] Anion gap 8 2 - 15 mmol/L [facility] BUN 9 6 - 25 mg/dL [facility] Creatinine 0.69(L) 0.80 - 1.30 mg/dL [facility] Glucose 89 70 - 199 mg/dL [facility] Comment: Interpretive Data Fasting glucose >/= 126 [...] 2022. Calcium 8.3(L) 8.5 - 10.3 mg/dL [facility] Bilirubin, total 4.5(H) 0.1 - 1.2 mg/dL [facility] Protein, pl 4.9(L) 6.5 - 8.5 g/dL [facility] Albumin 3.1(L) 3.5 - 5.0 g/dL [facility] Alk phos 263(H) 40 - 130 Units/L [facility] ALT 70(H) 7 - 55 Units/L [facility] AST 101(H) 10 - 50 Units/L [facility] Comment:Hemolyzed; result ma y be falsely elevated Blood 08/23/2023 5:47 PM CDT 08/23/2023 6:19 PM CDT us Olena Null MD LAB BLOOD ORDERABLES Final R esult [facility] Department [place] [address] * (ABNORMAL) CBC with auto differential (08/23/2023 5:47 PM CDT) Pathologist [facility] [place] WBC 13.8(H) 3.8 - 9.9 K/cumm [facility] Hgb 11.6(L) 13.0 - 17.5 g/dL [facility] Comment: Interpretive Data A reference range for this assay has not been established for patients with an unknown legal sex. Please refer to the laboratory test catalog for established sex-specific reference intervals. Current interpretive data was last revised on 2023. Hct 31.8(L) 38.9 - 50.3 % [facility] Comment: Interpretive Data A reference range for this assay has not been established for patients with an unknown legal sex. Please refer to the laboratory test catalog for established sex-specific reference intervals. Current interpretive data was last revised on 2023. Plt 254 150 - 400 K/cumm [facility] MPV 11.4 9.1 - 12.3 fL [facility] RBC 3.10(L) 4.30 - 5.80 M/cumm [facility] Comment: Interpretive Data A reference range for this assay has not been established for patients with an unknown legal sex. Please refer to the laboratory test catalog for established sex-specific reference intervals. Current interpretive data was last revised on 2023. MCV 102.6(H) 81.3 - 96.4 fL [facility] MCH 37.4(H) 27.1 - 33.3 pg [facility] MCHC 36.5(H) 32.3 - 35.7 g/dL [facility] RDW CV 19.2(H) 11.1 - 14.9 % [facility] RDW SD 71.3(H) 35.7 - 48.1 fL [facility] NRBC abs 0.00 0.00 - 0.01 K/cumm [facility] Blood 08/23/2023 5:47 PM CDT 08/23/2023 6:19 PM CDT us Olena Null MD LAB BLOOD ORDERABLES Final R esult [facility] Department [place] [address] documented in this encounter Visit Diagnoses Diagnosis [...] Other and unspecified noninfectious gastroenteritis and colitis Colitis Other and unspecified noninfectious gastroenteritis and [...] solution 0.5 mg 0.5 mg, nebulization, Daily (product responsibility liaison), First dose (after last modification) on Wed08/25/23 [...] solution 0.5 mg 0.5 mg, nebulization, Daily (product responsibility liaison), First dose (after last modification) on Wed08/25/23 [...] Cunha RN)1323 (Stopped - Provider: Crystal Cunha RN)195 (New [...] Reason: Other - Comment: hold auto hold)1650 (DEC Unhold - Provider: Automatic Transfer Provider)2025 (Given - Provider: Luisa Goldberg, SHAILESH) 0848 (Given - Provider: Crystal Cunha, SHAILESH)1543 [...] RN)0425 (Stopped - Provider: Bonita Rahman RN)1039 ([facility] Hold - Provider: Automatic Transfer Provider - Reason: Patient not available)1100 (Not Given - Provider: Karli Crum RN - Reason: Patient not available)1650 ([facility] Unhold - Provider: Automatic Transfer [...] Reason: Other) 0623 (Not Given - Provider: Grethcen Hou RN - Reason: Other)1400 (Due) sodium [...] not available)2015 (Lab Draw - Provider: Luisa Goldberg, SHAILESH) 0434 (Lab Draw - Provider: Luisa Goldberg, [...] Transfer Provider - Reason: Patient not available)165 (MAR Unhold - Provider: Automatic Transfer Provider)2028 (Lab Draw - Provider: Luisa Goldberg RN) 0850 (Given - Provider: Crystal Cunha RN)211 (Given - Provider: Gretchen Hou RN) 0806 [...] Goldberg RN) 0849 (Given - Provider: Crystal Cunha, SHAILESH)2109 (Given - Provider: Gretchen Hou, SHAILESH) 0809 [...] on Wed08/23/23 at 1710, Indications: Fever 1039 ([facility] Hold - Provider: Automatic Transfer Provider - Reason: Patient not available)1650 ([facility] Unhold - Provider: Automatic Transfer [...] primary IV, not intended for KVO. 1039 ([facility] Hold - Provider: Automatic Transfer Provider - Reason: Patient not available)1650 ([facility] Unhold - Provider: Automatic Transfer [...] Maintain Patency of Indwelling Vascular Catheter 1039 ([facility] Hold - Provider: Automatic Transfer Provider - Reason: Patient not available)165 ([facility] Unhold - Provider: Automatic Transfer Provider)2026 (Given - Provider: Luisa Goldberg RN) heparin 100 unit/mL injection 500 Units 500 Units (5 mL), intra-catheter, Once as needed, line care, Starting on Wed08/23/23 at 1705, For 1 dose, For port decannulation., Indications: Maintain Patency of Indwelling Vascular Catheter 1039 ([facility] Hold - Provider: Automatic Transfer Provider - Reason: Patient not available)165 ([facility] Unhold - Provider: Automatic Transfer Provider) magnesium sulfate 4 g/100 mL in water (premix) 4 g 4 g, intravenous, Administer over 90 Minutes, Every 4 hours PRN, magnesium replacement, Starting on Wed08/23/23 at 1709, For magnesium level of 1.2-1.5 mg/dL, Indications: hypomagnesemia 1039 ([facility] Hold - Provider: Automatic Transfer Provider - Reason: Patient not available)1650 ([facility] Unhold - Provider: Automatic Transfer [...] mg/dL and call/notify provider., Indications: hypomagnesemia 1039 ([facility] Hold - Provider: Automatic Transfer Provider - Reason: Patient not available)1650 ([facility] Unhold - Provider: Automatic Transfer Provider) ondansetron (ZOFRAN) injection 8 mg(Linked Group 1) 8 mg, intravenous, Administer over 2 Minutes, Every 8 hours PRN, nausea, vomiting, if not tolerating PO, Starting on Wed08/23/23 at 1710 1039 ([facility] Hold - Provider: Automatic Transfer Provider - Reason: Patient not available)1650 ([facility] Unhold - Provider: Automatic Transfer Provider) ondansetron (ZOFRAN) tablet 8 mg(Linked Group 1) 8 mg, oral, Every 8 hours PRN, nausea, vomiting, Starting on Wed08/23/23 at 1710, May administer IV if not tolerating oral. 1039 ([facility] Hold - Provider: Automatic Transfer Provider - Reason: Patient not available)1650 ([facility] Unhold - Provider: Automatic Transfer [...] be crushed or chewed., Indications: hypokalemia 1039 ([facility] Hold - Provider: Automatic Transfer Provider - Reason: Patient not available)1650 ([facility] Unhold - Provider: Automatic Transfer Provider) sodium chloride 0.9% flush 0.5-20 mL 0.5-20 mL, intra-catheter, As needed, line care, Starting on Wed08/23/23 at 1708, Flush volume based on line type and size. Flush before and after each use. 1039 ([facility] Hold - Provider: Automatic Transfer Provider - Reason: Patient not available)1650 ([facility] Unhold - Provider: Automatic Transfer [...] Prior to heparin to decannulate port. 1039 ([facility] Hold - Provider: Automatic Transfer Provider - Reason: Patient not available)1650 ([facility] Unhold - Provider: Automatic Transfer Provider) sodium chloride 0.9% flush 5-20 mL 5-20 mL, intra-catheter, As needed, line care, with each use, Starting on Wed08/31/23 at 1510, Flush volume based on line type, size, and protocol. 1039 ([facility] Hold - Provider: Automatic Transfer Provider - Reason: Patient not available)1650 ([facility] Unhold - Provider: Automatic Transfer [...] as of this encounter Care Teams Second Operator Relationship Specialty Start Date End Date Beka Nick MD [address] [place] [address] PCP - General Family Practice 05/31/23 04/25/24 Amber Montesinos, SHAILESH Filament Cutter Transplant 11/17/19 Jil Duncan MD Consulting Physician Infectious Diseases 01/10/20 Anita Gillespie MD Medical Oncologist/Television Installer Helper Medical Oncology 10/07/20 Tabitha Hurley MD [address] [place] [address] Consulting Physician Rheumatology 10/22/21 Massiel Gastelum MD [address] [place] [address] Consulting Physician Otolaryngology 08/27/22 documented as of this encounter
--- OUTSIDE RECORDS SUMMARY | 2024-10-28 06:09 | XMS_ITS | Encounter Summary ---
Author Organization [facility] Healthcare Address [address] [place] [address] Care Team Providers Care Outside Sales Consultant Name Role Phone Amber Montesinos RN Unavailable [phone] Jil Duncan MD Unavailable [phone] Anita Gillespie MD Unavailable [phone] Tabitha Hurley MD Unavailable [phone] Massiel Gastelum MD Unavailable [phone] Beka Nick MD Primary Care Provider [phone] Reason for Visit * Auth/Cert Specialty Diagnoses / Procedures Referred By Contac t Referred To Contact Diagnoses Multiple myeloma (HCC) Procedures na Referral ID Status Reason Start Date Expiration Date Visits Re quested Visits Authorized [id number] 1 1 Encounter Details Date Type Department Care Team (Latest Contact Info) Description 08/23/2023 10:24 AM CDT - 08/23/2023 11:59 PM CDT Hospital Encounter [address] [address] Discharge Disposition: Discharge to home [...] on file 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 Gender Identity Not on file [...] Scheduled Procedures Name Priority Associated Diagnoses Date/Ti tn COLONOSCOPY Encounter for screening for colorectal cancer in high risk patient Family history of rectal cancer documented as of this encounter Visit Diagnoses Not on filedocumented in this encounter Care Teams Outside Sales Consultant Relationship Specialty Start Date End Date Beka Nick MD [address] [place] [address] PCP - General Family Practice 05/31/23 04/25/24 Amber Montesinos, RN Charge Entry Transplant 11/17/19 Jil Duncan MD Consulting Physician Infectious Diseases 01/10/20 Anita Gillespie MD Medical Oncologist/Audio Narrator Medical Oncology 10/07/20 Tabitha Hurley MD [address] [place] [address] Consulting Physician Rheumatology 10/22/21 Massiel Gastelum MD [address] [place] [address] Consulting Physician Otolaryngology 08/27/22 documented as of this encounter
--- OUTSIDE RECORDS SUMMARY | 2024-10-28 06:09 | XMS_ITS | Encounter Summary ---
Author Organization [facility] Healthcare Address [address] [place] [address] Care Team Providers Care Animal Husbandry Teacher Name Role Phone Amber Montesinos RN Unavailable [phone] Jil Duncan MD Unavailable [phone] Anita Gillespie MD Unavailable [phone] Tabitha Hurley MD Unavailable [phone] Massiel Gastelum MD Unavailable [phone] Beka Nick MD Primary Care Provider [phone] Reason for Visit * Auth/Cert Specialty Diagnoses / Procedures Referred By Contac t Referred To Contact Diagnoses Multiple myeloma (HCC) Procedures na Referral ID Status Reason Start Date Expiration Date Visits Re quested Visits Authorized [id number] 1 1 Encounter Details Date Type Department Care Team (Late st Contact Info) Description 08/27/2023 1:27 PM CDT Anesthesia Event [facility] [address] [place] [address] Albin Almanza MD [address] [facility] [address] [place] [address] Socorro Skinner MLT Anesthesia Record Procedure Summary Procedure Name Responsible Anesthesiologist Anesthesia Start Time Anesthesia Stop Time ESOPHAGOGASTRODUODENOSCOPY ULTRASOUND FINE NEEDLE ASPIRATION/BIOPSY (Left) Albin Almanza MD 08/27/23 1327 08/27/23 1418 Events Date Time Event Comment 08/27/2023 1300 1326 In Room 1327 An Start 1327 An Start Data 1331 An Data Art 1336 Start Supplemental O2 1336 Patient Positioned Laterally 1336 Bite Block Placed 1336 An Induction The patient was reevaluated immediately before moderate or deep sedation use and before anesthesia induction. 1337 Anesthesia Ready 1340 Proc Start 1400 Proc Fin 1411 Out of Room 1411 an stop data 1418 Handoff to RN I completed my handoff [...] the time of handoff: No value filed. 1418 An Stop 1436 Release from care Meds Name Total lidocaine (cardiac) syringe 2 % 80 mg propofol 50 mg propofol 297.65 mg ciprofloxacin 400 mg/200 mL 400 mg sodium chloride 0.9% infusion 0 mL * Agents Name O2% N2O O2 N2O Air * Blood No blood administrations on file. 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 Gender Identity Not on file Sexual Orientation Straight 08/22/2021 9: 23 AM CDT documented as of this encounter OR Notes * Anesthesia Postprocedure Evaluation - Socorro Skinner MLT - 08/27/2023 2:35 PM CDT Patient: Beka Nichols Procedure Summary Date: 08/27/23 Room / Location: [facility] ROOM 2 / [facility] Anesthesia Start: 1327 Anesthesia Stop: 1418 Procedure: ESOPHAGOGASTRODUODENOSCOPY ULTRASOUND FINE NEEDLE ASPIRATION/BIOPSY (Left) Diagnosis: History of liver transplant (CMS/HCC) (HCC) 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) Jaundice (History of liver transplant (CMS/HCC) (HCC) [Z94.4]) (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) [T86.49, D47.Z1]) (Jaundice [R17]) Providers: Charles Damian MD Responsible Provider: Albin Almanza MD Anesthesia Type: MAC ASA Status: 3 Anesthesia Type: MAC Last vitals BP 112/56 (BP Location: Left arm, Patient Position: Lying) Pulse 81 Temp 36.3 ??C (97.3 ??F) (Temporal) Resp 24 SpO2 94% Anesthesia Post Evaluation Patient location during evaluation: PACU Patient participation: complete - patient participated Level of consciousness: fully awake Pain score: 0 Pain management: adequate Airway patency: adequate Cardiovascular status: acceptable and hemodynamically stable Respiratory status: acceptable and room air Hydration status: acceptable Pt is: normothermic Nausea/Vomiting status: none Comments: Socorro Ramirez am scribing for, and in the presence of Dr. Almanza. . No notable events documented. Cosigned by Albin Almanza MD at 08/27/2023 2:41 PM CDT * Anesthesia Preprocedure Evaluation - Socorro Skinner MLT - 08/27/2023 12:56 PM CDT Images from the original note were not included. Anesthesia Evaluation Beka Nichols is a 28 y.o. 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 Fever 12/22/2019 ??? Rhinovirus 08/27/2023 ??? Hypocalcemia and hypomagnesemia 08/27/2023 ??? Gram-negative bacteremia 08/24/2023 ??? Macrocytic anemia 08/23/2023 ??? Ansarca 08/23/2023 ??? Jaundice 08/23/2023 ??? Eustachian tube dysfunction, bilateral 06/02/2023 ??? Subcutaneous nodule of right lower extremity 07/09/2022 ??? Immunocompromised (HCC) 05/13/2022 ??? Chronic pansinusitis 02/17/2022 ??? Muscle weakness ??? Myalgia 10/08/2020 ??? On antiviral therapy 03/11/2020 ??? Elevated LFTs 02/15/2020 ??? 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 Immunocompromised patient (HCC) 01/06/2019 ??? Community acquired pneumonia 01/06/2019 ??? Lymphadenopathy 01/06/2019 ??? 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 [...] Diagnosis Date ??? Cancer (CMS/HCC) (HCC) ??? CMV (cytomegalovirus infection) (HCC) ??? Community [...] Txp: 03/03/1999 (Liver) D/C: ICD10: Z94.4 Center: [facility] ([place], [place]) traZODone (DESYREL) 50 mg tablet () -- 12/03/22 01/02/23 Nancy Butler NP Take 1 tablet (50 mg total) by mouth nightly ursodioL (ACTIGALL) 300 mg capsule -- 07/27/23 -- David Pool MD Take 2 capsules (600 mg total) by mouth daily with dinner Notes: PA/Scripts P: [phone] F: [phone] Ongoing Comment Juanita Martin RN 01/24/2022 8:57 AM 02/18/20NO INTERACTIONS FOR ADMISSION-WIN CASH No interactilns 03/12/2020 Rosemarie CASH No interactions noted. 03/15/2020 Rosemarie CASH No med interactions 03/25/2020 No severe interactions noted 12/20/2021 CAITLYN RN 12/27/21 No severe interaction noted upon review Lesvia Conde REGISTERED MASSAGE THERAPIST 01/24/2022 No severe interactions or contraindications noted. CAITLYN RN Current Facility-Administered Medications: ??? [MAR Hold] acetaminophen (TYLENOL) tablet 650 mg, 650 mg, oral, Q6H PRN ??? [DEC Hold] budesonide (PULMICORT) 0.5 mg/2 mL nebulizer solution 0.5 mg, 0.5 mg, nebulization, Daily (RT), 0.5 mg at 08/27/23 0720 ??? [DEC Hold] Carrier Fluids for Secondary Infusion - 0.9% Sodium Chloride, 30 mL, intravenous, PRN ??? [DEC Hold] cefTRIAXone (ROCEPHIN) 2,000 mg/20 mL in sterile water (premix) 2,000 mg, 2,000 mg, intravenous, Q24H PIPPA, 2,000 mg at 08/27/23 0901 ??? [DEC Hold] enoxaparin (LOVENOX) syringe 40 mg, 40 mg, subcutaneous, Daily-2100 ??? [DEC Hold] foscarnet (FOSCAVIR) 3,900 mg in sodium chloride 0.9% 325 mL (12 mg/mL) IVPB, 60 mg/kg, intravenous, Q8H PIPPA, Last Rate: 0 mL/hr at 08/27/23 0557, 3,900 mg at 08/27/23 1115 ??? [DEC Hold] furosemide (LASIX) 10 mg/mL injection 60 mg, 60 mg, intravenous, Daily, 60 mg at 08/27/23 0900 ??? [DEC Hold] heparin 10 unit/mL flush 20-50 Units, 2-5 mL, intra-catheter, PRN ??? [DEC Hold] heparin 100 unit/mL injection 500 Units, 5 mL, intra-catheter, Once PRN ??? [DEC Hold] magnesium oxide (MAG-OX) tablet 400 mg, 400 mg, oral, BID ??? [DEC Hold] magnesium sulfate 4 g/100 mL in water (premix) 4 g, 4 g, intravenous, Q4H PRN, Stopped at 08/27/23 0737 ??? [DEC Hold] magnesium sulfate 6 g in sodium chloride 0.9% 250 mL IVPB, 6 g, intravenous, Q4H PRN ??? [DEC Hold] metroNIDAZOLE (FLAGYL) tablet 500 mg, 500 mg, oral, TID, 500 mg at 08/27/23 0901 ??? [MAR Hold] ondansetron (ZOFRAN) tablet 8 mg, 8 mg, oral, Q8H PRN OR [DEC Hold] ondansetron (ZOFRAN) injection 8 mg, 8 mg, intravenous, Q8H PRN ??? perflutren protein-a (OPTISON) 3 mL in sodium chloride 0.9% 8 mL syringe, 1- 8 mL, intravenous, Once in imaging ??? [DEC Hold] potassium chloride ER (KLOR-CON) extended release tablet 40 mEq, 40 mEq, oral, Q2H PRN ??? [DEC Hold] sodium chloride 0.9% bolus 500 mL, 500 mL, intravenous, Q8H PIPPA, Last Rate: 250 mL/hr at 08/27/23 1115, 500 mL at 08/27/23 1115 ??? [DEC Hold] sodium chloride 0.9% flush 0.5-20 mL, 0.5-20 mL, intra-catheter, Q8H PIPPA, 10 mL at 08/26/23 1250 ??? [DEC Hold] sodium chloride 0.9% flush 0.5-20 mL, 0.5-20 mL, intra-catheter, PRN ??? sodium chloride 0.9% flush 0.5-20 mL, 0.5-20 mL, intra-catheter, Q8H PIPPA ??? sodium chloride 0.9% flush 0.5-20 mL, 0.5-20 mL, intra-catheter, PRN ??? [DEC Hold] sodium chloride 0.9% flush 10 mL, 10 mL, intra-catheter, Once PRN ??? sodium chloride 0.9% infusion, 30 mL/hr, intravenous, Continuous PRN, Last Rate: 30 mL/hr at 08/24/23 0555, 30 mL/hr at 08/24/23 0555 ??? sodium chloride 0.9% infusion, 30 mL/hr, intravenous, Continuous ??? [DEC Hold] sodium phosphate - potassium phosphate (K-PHOS NEUTRAL) tablet 500 mg, 500 mg, oral,Daily PRN ??? [DEC Hold] tacrolimus immediate-release capsule 0.5 mg, 0.5 mg, oral, Daily, 0.5 mg at 901 ??? [DEC Hold] ursodioL (ACTIGALL) capsule 600 mg, 600 mg, oral, Daily with dinner, 600 mg at 08/26/23 1602 ??? [MAR Hold] valGANciclovir (VALCYTE) tablet 900 mg, 900 mg, oral, BID, 900 mg at 08/27/23 0901 Social History Tobacco Use Smoking Status Never Smokeless Tobacco Current ??? Types: Chew Alcohol Use: Not At Risk (08/28/2022) AUDIT-C ??? Frequency of Alcohol Consumption: 2-4 times a month ??? Average Number of Drinks: 1 or 2 ??? Frequency of Binge Drinking: Never Substance and Sexual Activity Drug Use Yes ??? Types: Alcohol Family History Problem Relation Age of Onset ??? Rectal cancer Mother Rectal cancer - (Added by Conv) ??? Diabetes type II Sister Family history of type 2 diabetes mellitus - (Added by Conv) ??? Anesthesia problems Other ??? No Known Problems Father Vitals: 08/27/23 0720 08/27/23 0735 08/27/23 1224 BP: 111/54 121/74 Pulse: 90 85 Resp: 16 20 Temp: 36.8 ??C (98.3 ??F) 36.3 ??C (97.3 ??F) SpO2: 95% 94% 96% PT: 08/24/2023: 17.2 sec (H) INR: 08/24/2023: 1.51 (H) APTT: 08/24/2023: 34 sec Hgb A1C: No results found for requested labs within last 30 days. CBC RBC: 08/27/2023: 2.89 M/cumm (L) RDW: No results found for requested labs within last 30 days. MCHC: 08/27/2023: 36.9 g/dL (H) MCH: 08/27/2023: 37.4 pg (H) MCV: 08/27/2023: 101.4 fL (H) Hct: 08/27/2023: 29.3 % (L) Hgb: 08/27/2023: 10.8 g/dL (L) WBC: 08/27/2023: 12.5 K/cumm (H) MPV: 08/27/2023: 12.0 fL Platelets: 08/27/2023: 290 K/cumm RDW CV: 08/27/2023: 18.7 % (H) RDW Sd: 08/27/2023: 68.2 fL (H) BMP Glucose: 08/27/2023: 99 mg/dL Calcium: 08/27/2023: 6.9 mg/dL (L) Sodium: 08/27/2023: 140 mmol/L Potassium: 08/27/2023: 3.8 mmol/L CO2: 08/27/2023: 23 mmol/L Chloride: 08/27/2023: 109 mmol/L BUN: 08/27/2023: 10 mg/dL Creatinine: 08/27/2023: 0.76 mg/dL (L) DOS Physical Exam Medical history, medications, and allergies reviewed. Attestation: This PAT evaluation 08/27/2023. Airway Exam: Mallampati: II Cervical ROM: FROM TM distance: normal Cardiovascular Exam: Rate: regular Rhythm: regular Pulmonary Exam: LCTA, bilat Dental Exam: Appears intact Current state: Patient's current state is cooperative and interactive. Additional comments: No interval change in medical condition. Anesthesia Plan ASA 3 My patient is approved for the Anesthesia Controlled Medication protocol when under care of a [employer] COORDINATOR Planned anesthesia: MAC Induction: Induction: intravenous. Postoperative Plan: Patient's planned disposition post procedure is Outpatient. Informed Consent: Discussed plan with [employer] COORDINATOR. Anesthesia plan and risks discussed with patient. Plan and Consent Comments: NPO status confirmed Socorro Ramirez am scribing for, and in the presence of Dr. Almanza. . Consent and Attending signature: I and/or my designee have discussed the anesthesia plan, benefits, possible alternatives, parental presence at time of induction (if indicated), and clinically relevant risks that may include dental injury, unintentional awareness, and/or other complications. The patient and/or parent/legal guardian understand, and agree to proceed. All questions answered. Cosigned by Albin Almanza MD at 08/27/2023 1:00 PM CDT documented in this encounter Plan [...] MAR Action Action Date Dose Rate Site ciprofloxacin (CIPRO) 400 mg/200 mL in dextrose 5% (premix) intravenous, Administer over 60 Minutes, As needed, Starting on Wed08/27/23 at 1401, Anesthesia Intra-op Given 08/27/2023 2:01 PM CDT 400 mg lidocaine (cardiac) (XYLOCAINE) preservative free injection intravenous, As needed, Starting on Wed08/27/23 at 1336, Anesthesia Intra-op, Indications: Ventricular ArrhythmiasIndications:V entricular Arrhythmias Given 08/27/2023 1:36 PM CDT 80 mg propofoL (DIPRIVAN) 10 mg/mL IV intravenous, As needed, Starting on Wed08/27/23 at 1336, Anesthesia Intra-op Given 08/27/2023 1:36 PM CDT 50 mg propofoL (DIPRIVAN) 10 mg/mL IV intravenous, Continuous PRN, Starting on Wed08/27/23 at 1336, Anesthesia Intra-op New Bag 08/27/2023 1:36 PM CDT 180 mcg/kg/min 74.412 mL/hr sodium chloride 0.9% infusion 30 mL/hr, intravenous, Continuous PRN, KVO for medication administrations, Starting on Wed08/23/23 at 1705 New Bag 08/28/2023 1:33 PM CDT 30 mL/hr 30 mL/hr Rate/Dose Verify 08/27/2023 1:27 PM CDT 30 mL/h r New Bag 08/24/2023 5:55 AM CDT 30 mL/hr 30 mL/hr documented in this encounter Additional Health Concerns Infection Onset Date Last Indicated Resolved Time Rhino/Enterovirus Comment:08/31/2023 IP Review: symptoms improved per current RN, afebrile off of antipyretics. OK to come off rhino/enterovirus precautions. Adriane Herrera RN 08/25/2023 08/25/20232022 2:08 PM CDT documented as of this encounter Care Teams Animal Husbandry Teacher Relationship Specialty Start Date End Date Beka Nick MD [address] [place] [address] PCP - General Family Practice 05/31/23 04/25/24 Amber Montesinos, RN Wire Straightening Machine Operator Transplant 11/17/19 Jil Duncan MD Consulting Physician Infectious Diseases 01/10/20 Anita Gillespie MD Medical Oncologist/Deputy Attorney General Medical Oncology 10/07/20 Tabitha Hurley MD [address] [place] [address] Consulting Physician Rheumatology 10/22/21 Massiel Gastelum MD [address] [place] [address] Consulting Physician Otolaryngology 08/27/22 documented as of this encounter
--- OUTSIDE RECORDS SUMMARY | 2024-10-28 06:10 | XMS_ITS | Encounter Summary ---
Author Organization [facility] Address [address] [place] [address] Phone Care Team Providers Care Lumber Loader Name Role Phone Amber Montesinos RN Unavailable [phone] Jil Duncan MD Unavailable [phone] Anita Gillespie MD Unavailable [phone] Tabitha Hurley MD Unavailable [phone] Massiel Gastelum MD Unavailable [phone] Beka Nick MD Primary Care Provider [phone] Encounter Details Date Type Department Care Team (Late st Contact Info) Description 08/13/2023 Telephone [facility] Infectious Diseases [address] [place] [address] Victoria Hutchinson Social History Tobacco Use Types Packs/Day Years [...] on file 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 states she is working on getting results uploaded into [employer] for provider reviewing. She also wanted to note that she is not sure why it was ran twice. [phone] documented in this encounter Plan of Treatment [...] documented as of this encounter Care Teams Lumber Loader Relationship Specialty Start Date End Date Beka Nick MD [address] [place] [address] PCP - General Family Practice 05/31/23 04/25/24 Amber Montesinos, RN Electrical Electronics Engineers Transplant 11/17/19 Jil Duncan MD Consulting Physician Infectious Diseases 01/10/20 Anita Gillespie MD Medical Oncologist/Farm Facility Manager Medical Oncology 10/07/20 Tabitha Hurley MD [address] [place] [address] Consulting Physician Rheumatology 10/22/21 Massiel Gastelum MD [address] [place] [address] Consulting Physician Otolaryngology 08/27/22 documented as of this encounter
--- OUTSIDE RECORDS SUMMARY | 2024-10-28 06:10 | XMS_ITS | Encounter Summary ---
Author Organization [facility] Address [address] [place] [address] Phone Care Team Providers Care Increment Manager Name Role Phone Amber Montesinos RN Unavailable [phone] Jil Duncan MD Unavailable [phone] Anita Gillespie MD Unavailable [phone] Tabitha Hurley MD Unavailable [phone] Massiel Gastelum MD Unavailable [phone] Beka Nick MD Primary Care Provider [phone] Unknown, Notinfile Primary Care Provider Unavail able Guero Colunga DO Primary Care Provider Encounter Details Date Type Department Care Team (Late st Contact Info) Description 07/17/2023 Orders Only [facility] Scanning, Provider Social History Tobacco Use Types [...] on file 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 Gender Identity Not on file Sexual Orientation Straight 08/22/2021 9: 23 AM CDT documented as of this encounter Plan of Treatment Scheduled Procedures Name Priority Associated Diagnoses Date/Ti me COLONOSCOPY Encounter for screening for colorectal cancer in high risk patient Family history of rectal cancer documented as of this encounter Procedures Procedure Name Priority Date/Time Associated Diagnosis Comments SCAN - LABS 07/17/2023 documented in this encounter Results * SCAN - LABS (07/17/2023) us Provider Scanning Final Result documented in [...] COVID: Suspected 10/03/2023 10/03/2023 10/03/2023 9:58 AM GLUING 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 Rhino/Enterovirus 10/03/2023 10/03/2023 10/17/2023 3:05 AM GLUING 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 COVID: Suspected 02/18/2024 02/18/2024 02/18/2024 7:27 AM CDT Rhino/Enterovirus 02/18/2024 02/19/2024 03/04/2024 3:05 AM CDT documented as of this encounter Care Teams Increment Manager Relationship Specialty Start Date End Date Beka Nick MD [address] [place] [address] PCP - General Family Practice 05/31/23 04/25/24 Unknown, Notinfile PCP - General 04/26/24 08/01/24 Guero Colunga DO [address] [place] [address] PCP - General Internal Medicine 08/02/24 Amber Montesinos, SHAILESH Yardage Control Clerk Transplant 11/17/19 Jil Duncan MD Consulting Physician Infectious Diseases 01/10/20 Anita Gillespie MD Medical Oncologist/Java Web Services Developer Medical Oncology 10/07/20 Tabitha Hurley MD [address] [facility] [address] [place] [address] Consulting Physician Rheumatology 10/22/21 Massiel Gastelum MD [address] [place] [address] Consulting Physician Otolaryngology 08/27/22 documented as of this encounter
--- OUTSIDE RECORDS SUMMARY | 2024-10-28 06:10 | XMS_ITS | Encounter Summary ---
Author Organization [facility] Address [address] [place] [address] Phone Care Team Providers Care Inspector Plating Name Role Phone Amber Montesinos RN Unavailable [phone] Jil Duncan MD Unavailable [phone] Anita Gillespie MD Unavailable [phone] Tabitha Hurley MD Unavailable [phone] Massiel Gastelum MD Unavailable [phone] Beka Nick MD Primary Care Provider [phone] Encounter Details Date Type Department Care Team (Late st Contact Info) Description 06/02/2023 Orders Only [facility] Infectious Diseases [address] [place] [address] [address] [place] [address] Lisandra Auguste, AIDEN [address] [place] [address] 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HCC) (Primary Dx) [...] on file 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 Will continue maribavir and recheck CMV PCR in 2 weeks. Lab orders sent. Patient notified via [employer]. documented in this encounter Plan of Treatment Scheduled Procedures Name Priority Associated Diagnoses Date/Ti me COLONOSCOPY Encounter for screening for colorectal cancer in high risk patient Family history of rectal cancer documented as of this encounter Visit Diagnoses Diagnosis 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 documented in this encounter Care Teams Inspector Plating Relationship Specialty Start Date End Date Beka Nick MD [address] [facility] [address] [place] [address] PCP - General Family Practice 05/31/23 04/25/24 Amber Montesinos RN Transcribing Machine Operator Transplant 11/17/19 Jil Duncan MD Consulting Physician Infectious Diseases 01/10/20 Anita Gillespie MD Medical Oncologist/Appeals Specialist Medical Oncology 10/07/20 Tabitha Hurley MD [address] [place] [address] Consulting Physician Rheumatology 10/22/21 Massiel Gastelum MD [address] [place] [address] Consulting Physician Otolaryngology 08/27/22 documented as of this encounter
--- OUTSIDE RECORDS SUMMARY | 2024-10-28 06:10 | XMS_ITS | Encounter Summary ---
Author Organization [facility] Healthcare Address [address] [place] [address] Care Team Providers Care Telecommunication Tower Technician Name Role Phone Amber Montesinos RN Unavailable [phone] Jil Duncan MD Unavailable [phone] Anita Gillespie MD Unavailable [phone] Tabitha Hurley MD Unavailable [phone] Massiel Gastelum MD Unavailable [phone] Beka Nick MD Primary Care Provider [phone] Encounter Details Date Type Department Care Team (Late st Contact Info) Description 07/28/2023 Orders Only [facility] Transplant Liver [address] [facility] [id number] [place] [address] Amber Montesinos, RN Social History Tobacco Use [...] on file 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 Gender Identity Not on file Sexual Orientation Straight 08/22/2021 9: 23 AM CDT documented as of this encounter Ordered Prescriptions Prescription Sig Dispense Quantity Refills Last Filled Start Date End Date tacrolimus (PROGRAF) 0.5 mg immediate-release capsuleIndications :Prevention of Liver Transplant Rejection Take 1 capsule (0.5 mg total) by mouth every other day 15 capsule 11 07/28/2023 documented in this encounter Plan of Treatment Scheduled Procedures Name Priority Associated Diagnoses Date/Ti me COLONOSCOPY Encounter for screening for colorectal cancer in high risk patient Family history of rectal cancer documented as of this encounter Visit Diagnoses Not on filedocumented in this encounter Discontinued Medications Medication Sig Discontinue Reason Start Date End Da te tacrolimus (PROGRAF) 0.5 mg immediate-release capsuleIndications:Preve ntion of Liver Transplant Rejection Take 1 capsule (0.5 mg total) by mouth every other day Reorder 01/14/2023 07/28/2023 documented as of this encounter Care Teams Telecommunication Tower Technician Relationship Specialty Start Date End Date Beka Nick MD [address] [place] [address] PCP - General Family Practice 05/31/23 04/25/24 Amber Montesinos RN Head Pumper Transplant 11/17/19 Jil Duncan MD Consulting Physician Infectious Diseases 01/10/20 Anita Gillespie MD Medical Oncologist/Financial Center Manager Medical Oncology 10/07/20 Tabitha Hurley MD [address] [place] [address] Consulting Physician Rheumatology 10/22/21 Massiel Gastelum MD [address] [place] [address] Consulting Physician Otolaryngology 08/27/22 documented as of this encounter
--- OUTSIDE RECORDS SUMMARY | 2024-10-28 06:10 | XMS_ITS | Encounter Summary ---
Author Organization [facility] Address [address] [place] [address] Phone Care Team Providers Care Patch Press Operator Name Role Phone Amber Montesinos RN Unavailable [phone] Jil Duncan MD Unavailable [phone] Anita Gillespie MD Unavailable [phone] Tabitha Hurley MD Unavailable [phone] Massiel Gastelum MD Unavailable [phone] Beka Nick MD Primary Care Provider [phone] Encounter Details Date Type Department Care Team (Late st Contact Info) Description 07/26/2023 Orders Only [facility] Infectious Diseases [address] [place] [address] [address] [place] [address] Lisandra Auguste, AIDEN [address] [place] [address] 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HCC) (Primary Dx) [...] file 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 Gender Identity Not on file Sexual Orientation [...] disease documented in this encounter Care Teams Patch Press Operator Relationship Specialty Start Date End Date Beka Nick MD [address] [place] [address] PCP - General Family Practice 05/31/23 04/25/24 Amber Montesinos, SHAILESH Landscaping Crew Leader Transplant 11/17/19 Jil Duncan MD Consulting Physician Infectious Diseases 01/10/20 Anita Gillespie MD Medical Oncologist/Inspector Glass Or Mirror Medical Oncology 10/07/20 Tabitha Hurley MD [address] [place] [address] Consulting Physician Rheumatology 10/22/21 Massiel Gastelum MD [address] [place] [address] Consulting Physician Otolaryngology 08/27/22 documented as of this encounter
--- OUTSIDE RECORDS SUMMARY | 2024-10-28 06:10 | XMS_ITS | Encounter Summary ---
Author Organization [facility] Healthcare Address [address] [place] [address] Care Team Providers Care Director Of Sales Marketing Name Role Phone Amber Montesinos RN Unavailable [phone] Jil Duncan MD Unavailable [phone] Anita Gillespie MD Unavailable [phone] Tabitha Hurley MD Unavailable [phone] Massiel Gastelum MD Unavailable [phone] Beka Nick MD Primary Care Provider [phone] Encounter Details Date Type Department Care Team (Late st Contact Info) Description 07/31/2023 Orders Only [facility] Health Information Management [address] [place] [address] Scanning, Provider Social History Tobacco Use Types [...] on file 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 Gender Identity Not on file Sexual Orientation Straight 08/22/2021 9: 23 AM CDT documented as of this encounter Plan of Treatment Scheduled Procedures Name Priority Associated Diagnoses Date/Ti me COLONOSCOPY Encounter for screening for colorectal cancer in high risk patient Family history of rectal cancer documented as of this encounter Procedures Procedure Name Priority Date/Time Associated Diagnosis Comments SCAN - LABS 07/31/2023 11:55 AM CDT documented in this encounter Results * SCAN - LABS (07/31/2023 11:55 AM CDT) us Provider Scanning Final Result documented in this encounter Visit Diagnoses Not on filedocumented in this encounter Care Teams Director Of Sales Marketing Relationship Specialty Start Date End Date Beka Nick MD [address] [place] [address] PCP - General Family Practice 05/31/23 04/25/24 Amber Montesinos, SHAILESH Respiratory Technician Transplant 11/17/19 Jil Duncan MD Consulting Physician Infectious Diseases 01/10/20 Anita Gillespie MD Medical Oncologist/Corrections Unit Supervisor Medical Oncology 10/07/20 Tabitha Hurley MD [address] [place] [address] Consulting Physician Rheumatology 10/22/21 Massiel Gastelum MD [address] [place] [address] Consulting Physician Otolaryngology 08/27/22 documented as of this encounter
--- OUTSIDE RECORDS SUMMARY | 2024-10-28 06:10 | XMS_ITS | Encounter Summary ---
Author Organization [facility] Address [address] [place] [address] Phone Care Team Providers Care Editor Producer Name Role Phone Amber Montesinos RN Unavailable [phone] Jil Duncan MD Unavailable [phone] Anita Gillespie MD Unavailable [phone] Tabitha Hurley MD Unavailable [phone] Massiel Gastelum MD Unavailable Beka Nick MD Primary Care Provider [phone] Encounter Details Date Type Department Care Team (Late st Contact Info) Description 06/04/2023 Telephone [facility] Infectious Diseases [address] [place] [address] [address] [place] [address] Lisandra Auguste, AIDEN [address] [place] [address] [address] [place] [address] Social History Tobacco Use Types Packs/Day Years [...] on file 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 Gender Identity Not on file Sexual Orientation Straight 08/22/2021 9: 23 AM CDT documented as of this encounter Ordered Prescriptions Prescription Sig Dispense Quantity Refills Last Filled Start Date End Date maribavir (LIVTENCITY) 200 mg tablet Take 2 tablets (400 mg total) by mouth 2 (two) times a day 120 tablet 5 06/04/2023 3 maribavir (LIVTENCITY) 200 mg tablet Take 2 tablets (400 mg total) by mouth 2 (two) times a day 28 tablet 06/04/2023 3 documented in this encounter Miscellaneous Notes * Telephone Encounter - Lisandra Auguste NP - 06/04/2023 10:58 AM CDT Patient approved for maribavir through [facility]. Will send rx. He was given co-pay card so there should be no cost to him. documented in this encounter Plan of Treatment Scheduled Procedures Name Priority Associated Diagnoses Date/Ti me COLONOSCOPY Encounter for screening for colorectal cancer in high risk patient Family history of rectal cancer documented as of this encounter Visit Diagnoses Not on filedocumented in this encounter Discontinued Medications Medication Sig Discontinue Reason Start Date End Da te maribavir (LIVTENCITY) 200 mg tablet Take 2 tablets (400 mg total) by mouth 2 (two) times a day Reorder 06/03/2023 06/04/2023 maribavir (LIVTENCITY) 200 mg tablet Take 2 tablets (400 mg total) by mouth 2 (two) times a day Reorder 06/03/2023 06/04/2023 documented as of this encounter Care Teams Editor Producer Relationship Specialty Start Date End Date Beka Nick MD [address] [place] [address] PCP - General Family Practice 05/31/23 04/25/24 Amber Montesinos, SHAILESH Wort Extractor Transplant 11/17/19 Jil Duncan MD Consulting Physician Infectious Diseases 01/10/20 Anita Gillespie MD Medical Oncologist/Secondary School Special Ed Teacher Medical Oncology 10/07/20 Tabitha Hurley MD [address] [place] [address] Consulting Physician Rheumatology 10/22/21 Massiel Gastelum MD [address] [place] [address] Consulting Physician Otolaryngology 08/27/22 documented as of this encounter
--- OUTSIDE RECORDS SUMMARY | 2024-10-28 06:10 | XMS_ITS | Encounter Summary ---
Author Organization [facility] Healthcare Address [address] [place] [address] Care Team Providers Care Identifier Horse Name Role Phone Guero Colunga Primary Care Provider [phone] Amber Montesinos RN Unavailable [phone] Jil Duncan MD Unavailable [phone] Anita Gillespie MD Unavailable [phone] Tabitha Hurley MD Unavailable [phone] Massiel Gastelum MD Unavailable [phone] Encounter Details Date Type Department Care Team (Latest Contact Info) Description 12/30/2022 7:41 AM ELECTRIC ARC WELDER - 12/30/2022 11:59 PM ELECTRIC ARC WELDER Hospital Encounter [facility] ([facility]) [address] [place] [phone] 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); 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HCC) Discharge Disposition: [...] on file Legal 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 Do not swallow. 4 tacrolimus (PROGRAF) 0.5 mg immediate-releas e capsule Take 1 capsule (0.5 mg total) by mouth every other day 05/25/2022 3 traZODone (DESYREL) 50 mg tablet Take 1 tablet (50 mg total) by mouth nightly 30 tablet 2 12/03/2022 3 ursodioL (ACTIGALL) 300 mg capsule Take 2 capsules (600 mg total) by mouth daily with dinner 180 capsule 3 10/02/2021 3 valGANciclovir (VALCYTE) 450 mg tablet Take 2 tablets (900 mg total) by mouth 2 (two) times a day 120 tablet 11/27/2022 3 valGANciclovir (VALCYTE) 450 mg tablet TAKE 2 TABLETS BY MOUTH TWICE DAILY 120 tablet 12/31/2022 3 documented as of this encounter Discharge [...] Priority Date/Time Associated Diagnosis Comments EGFR Routine 12/30/2022 7:02 AM ELECTRIC ARC WELDER 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) DIFFERENTIAL AUTO Routine 12/30/2022 7:0 2 AM ELECTRIC ARC WELDER 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) CBC WITH AUTO DIFFERENTIAL Routine 12/30/2022 7:02 AM ELECTRIC ARC WELDER 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 73 m2 [facility] [...] was last reviewed 2021. Testing performed by: [facility], [address] [place] [phone] Blood 12/30/2022 7:02 AM ELECTRIC ARC WELDER 12/30/2022 7:03 AM ELECTRIC ARC WELDER us Anita Gillespie MD LAB BLOOD ORDERABLES Final Result [facility] [place] [address] * Differential, auto (12/30/2022 7:02 AM ELECTRIC ARC WELDER) Neutrophil abs 2.5 1.8 - 6.6 K/cumm [facility] Comment:Testing performed by : [facility], [address] [place] [phone] Lymphocyte abs 3.3 1.2 - 3.3 K/cumm [facility] Comment:Testing performed by : [facility], [address] [place] [phone] Monocyte abs 1.2 0.2 - 1.2 K/cumm [facility] Comment:Testing performed by : [facility], [address] [place] [phone] Eosinophil abs 0.1 0.0 - 0.5 K/cumm [facility] Comment:Testing performed by : [facility], [address] [place] [phone] Basophil abs 0.1 0.0 - 0.2 K/cumm [facility] Comment:Testing performed by : [facility], [address] [place] [phone] Neutrophil pct 34.8 % [facility] Comment: Interpretive Data Percent cell count reference ranges are not reported, since discordance with absolute values may lead to misinterpretation of CBC data. Current Interpretive Data was last revised on 2018. Testing performed by: [facility], [address] [place] [phone] Lymphocyte pct 46.1 % [facility] Comment: Interpretive Data Percent cell count reference ranges are not reported, since discordance with absolute values may lead to misinterpretation of CBC data. Current Interpretive Data was last revised on 2018. Testing performed by: [facility], [address] [place] [phone] Monocyte pct 16.3 % [facility] Comment:Testing performed by : [facility], [address] [place] [phone] Eosinophil pct 1.4 % [facility] Comment:Testing performed by : [facility], [address] [place] [phone] Basophil pct 1.4 % [facility] Comment:Testing performed by : [facility], [address] [place] [phone] Blood 12/30/2022 7:02 AM ELECTRIC ARC WELDER 12/30/2022 7:03 AM ELECTRIC ARC WELDER us Anita Gillespie MD LAB BLOOD ORDERABLES Final Result Performing Organization Address City/State/[facility] Co de Phone Number [facility] Department [place] [address] * (ABNORMAL) CBC with auto differential (12/30/2022 7:02 AM ELECTRIC ARC WELDER) WBC 7.2 3.8 - 9.8 K/cumm [facility] Comment:Testing performed by : [facility], [address] [place] [phone] Hgb 14.9 13.8 - 17.2 g/dL [facility] Comment:Testing performed by : [facility], [address] [place] [phone] Hct 41.5 40.7 - 50.3 % [facility] Comment:Testing performed by : [facility], [address] [place] [phone] Plt 196 140 - 440 K/cumm [facility] Comment:Testing performed by : [facility], [address] [place] [phone] MPV 8.7 6.8 - 10.4 fL [facility] Comment:Testing performed by : [facility], [address] [place] [phone] RBC 4.04(L) 4.50 - 5.70 M/cumm [facility] Comment:Testing performed by : [facility], [address] [place], [place] [phone] MCV 102.6(H) 80.0 - 97.6 fL [facility] Comment:Testing performed by : [facility], [address] [place] [phone] MCH 36.8(H) 26.7 - 33.7 pg [facility] Comment:Testing performed by : [address] [phone] MCHC 35.9(H) 32.7 - 35.5 g/dL [facility] Comment:Testing performed by : [facility], [address] [place] [phone] RDW CV 17.0(H) 11.8 - 14.6 % [facility] Comment:Testing performed by : [facility], [address] [place] [phone] NRBC abs 0.00 0.00 - 0.01 K/cumm [facility] Comment:Testing performed by : [facility], [address] [place] [phone] Blood 12/30/2022 7:02 AM ELECTRIC ARC WELDER 12/30/2022 7:03 AM ELECTRIC ARC WELDER us Anita Gillespie MD LAB BLOOD ORDERABLES Final Result [facility] Department [place] [address] * (ABNORMAL) Comprehensive metabolic panel (12/30/2022 7:02 AM ELECTRIC ARC WELDER) Sodium 142 135 - 145 mmol/L [facility] Comment:Testing performed by : [facility], [address] [place] [phone] Potassium, pl 4.4 3.3 - 4.9 mmol/L [facility] Comment:Testing performed by : [facility], [address] [place] [phone] Chloride 110 97 - 110 mmol/L [facility] Comment:Testing performed by : [facility], [address] [place] [phone] CO2 25 22 - 32 mmol/L [facility] Comment:Testing performed by : [facility], [address] [place] [phone] Anion gap 7 2 - 15 mmol/L [facility] Comment:Testing performed by : [facility], [address] [place] [phone] BUN 7(L) 8 - 25 mg/dL [facility] Comment:Testing performed by : [facility], [address] [place] [phone] Creatinine 0.61(L) 0.80 - 1.30 mg/dL [facility] Comment:Testing performed by : [facility], [address] [place] [phone] Glucose 95 70 - 199 mg/dL [facility] Comment: Interpretive Data Fasting glucose >/= 126 [...] was last revised 2022. Testing performed by: [facility], [address] [place] [phone] Calcium 8.9 8.5 - 10.3 mg/dL [facility] Comment:Testing performed by : [facility], [address] [place] [phone] Bilirubin, total 1.5(H) 0.1 - 1.2 mg/dL [facility] Comment:Testing performed by : [facility], [address] [place] [phone] Protein, pl 5.9(L) 6.5 - 8.5 g/dL [facility] Comment:Testing performed by : [facility], [address] [place] [phone] Albumin 3.4(L) 3.5 - 5.0 g/dL [facility] Comment:Testing performed by : [facility], [address] [place] [phone] Alk phos 315(H) 40 - 130 Units/L [facility] Comment:Testing performed by : [facility], [address] [place], [place] [phone] ALT 45 7 - 55 Units/L [facility] Comment:Testing performed by : [facility], [address] [place] [phone] AST 67(H) 10 - 50 Units/L [facility] Comment:Testing performed by : [facility], [address] [place] [phone] Blood 12/30/2022 7:02 AM ELECTRIC ARC WELDER 12/30/2022 7:03 AM ELECTRIC ARC WELDER us Anita Gillespie MD LAB BLOOD ORDERABLES Final Result Performing Organization Address [facility] de Phone Number [facility] [place] [address] * (ABNORMAL) Lactate dehydrogenase (LD) (12/30/2022 7:02 AM ELECTRIC ARC WELDER) Lactate dehydrogenase (LDH) 312(H) 100 - 250 Units/L [facility] Comment:Testing performed by : [facility], [address] [place] [phone] Blood 12/30/2022 7:02 AM ELECTRIC ARC WELDER 12/30/2022 7:03 AM ELECTRIC ARC WELDER Anita Gillespie MD LAB BLOOD ORDERABLES Final Result Performing Organization Address [facility] Co de Phone Number [facility] Department [place] [address] * (ABNORMAL) Cytomegalovirus (CMV) DNA PCR, quantitative Blood (12/30/2022 6:46 AM ELECTRIC ARC WELDER) CMV DNA Detected( A) [facility] Comment: Interpretive Data: The quantifiable range of this assay is 34 IUnits/mL to 10,000,000 IUnits/mL (1.53 log IUnits/mL to 7.0 log IUnits/mL). Testing was performed by the NIA 6800 CMV Test ([employer] Testing performed at [facility]. Current interpretive data was last revised on 2021. CMV DNA IU/mL 5,950 IUnits/mL [facility] CMV DNA log IU/mL 3.77 log IUnits/mL [facility] Blood 12/30/2022 6:46 AM ELECTRIC ARC WELDER 12/30/2022 7:55 AM ELECTRIC ARC WELDER us Lisandra Auguste SOLE LAYER HAND LAB MICROBIOLOGY - GENERA L ORDERABLES Final Result Performing Organization Address 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 documented in this encounter Care Teams Identifier Horse Relationship Specialty Start Date End Date Guero Colunga DO PCP - General Internal Medicine 03/22/19 04/18/23 Amber Montesinos, SHAILESH City Library Director Transplant 11/17/19 Jil Duncan MD Consulting Physician Infectious Diseases 01/10/20 Anita Gillespie MD Medical Oncologist/Electrical Instrument Technician Medical Oncology 10/07/20 Tabitha Hurley MD [address] [place] [address] Consulting Physician Rheumatology 10/22/21 Massiel Gastelum MD [address] [place] [address] Consulting Physician Otolaryngology 08/27/22 documented as of this encounter
--- OUTSIDE RECORDS SUMMARY | 2024-10-28 06:10 | XMS_ITS | Encounter Summary ---
Author Organization [facility] Healthcare Address [address] [place] [address] Care Team Providers Care Thermo Processor Name Role Phone Amber Montesinos RN Unavailable [phone] Jil Duncan MD Unavailable [phone] Anita Gillespie MD Unavailable [phone] Tabitha Hurley MD Unavailable [phone] Massiel Gastelum MD Unavailable [phone] Beka Nick MD Primary Care Provider [phone] Encounter Details Date Type Department Care Team (Late st Contact Info) Description 08/03/2023 Orders Only [facility] Health Information Management [address] [place] [address] Scanning, Provider Social History Tobacco Use Types [...] on file 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 Gender Identity Not on file Sexual Orientation Straight 08/22/2021 9: 23 AM CDT documented as of this encounter Plan of Treatment Scheduled Procedures Name Priority Associated Diagnoses Date/Ti me COLONOSCOPY Encounter for screening for colorectal cancer in high risk patient Family history of rectal cancer documented as of this encounter Procedures Procedure Name Priority Date/Time Associated Diagnosis Comments SCAN - LABS 08/03/2023 4:55 PM CDT documented in this encounter Results * SCAN - LABS (08/03/2023 4:55 PM CDT) us Provider Scanning Final Result documented in this encounter Visit Diagnoses Not on filedocumented in this encounter Care Teams Thermo Processor Relationship Specialty Start Date End Date Beka Nick MD [address] [place] [address] PCP - General Family Practice 05/31/23 04/25/24 Amber Montesinos, SHAILESH Polisher Brass Transplant 11/17/19 Jil Duncan MD Consulting Physician Infectious Diseases 01/10/20 Anita Gillespie MD Medical Oncologist/Web Developer Medical Oncology 10/07/20 Tabitha Hurley MD [address] [place] [address] Consulting Physician Rheumatology 10/22/21 Massiel Gastelum MD [address] [place] [address] Consulting Physician Otolaryngology 08/27/22 documented as of this encounter
--- OUTSIDE RECORDS SUMMARY | 2024-10-28 06:10 | XMS_ITS | Encounter Summary ---
Author Organization [facility] Address [address] [place] [address] Phone Care Team Providers Care Casing Material Weigher Name Role Phone Guero Colunga DO Primary Care Provider [phone] Amber Montesinos RN Unavailable [phone] Jil Valdez MD Unavailable [phone] Anita Gillespie MD Unavailable [phone] Tabitha Hurley MD Unavailable [phone] Massiel Gastelum MD Unavailable [phone] Adi Nick MD Primary Care Provider [phone] Adi Nick MD Primary Care Provider [phone] Encounter Details Date Type Department Care Team (Late st Contact Info) Description 12/30/2022 7:30 AM 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 FARM MANAGER Office Visit [facility] [address] [facility] 7th [place] [address] [place] [address] Anita Gillespie MD [address] [facility] [address] [place] [address] 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) (Primary Dx) Social History Tobacco Use Types Packs/Day Years Used Date Smoking Tobacco: Never Smokeless Tobacco: Current Chew Alcohol Use Standard Drinks/Week Comments Yes 0 (1 standard drink = 0.6 oz pur e alcohol) occassional OASIS D0700: Social Isolation Answer Da te Recorded Frequency of experiencing loneliness or isolatio n Never 09/04/2023 [facility] Utilities Answer [...] any clubs o r organizations such as religion groups, unions, fraternal or athletic groups, or [...] on file Legal Sex Male 6:28 AM 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 MANAGER Gender Identity Not on file Sexual Orientation Straight 08/22/2021 9: 23 AM CDT documented as of this encounter Last Filed Vital Signs Vital Sign Reading Time Taken Comments Blood Pressure 102/67 12/30/2022 7:20 AM 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 FARM MANAGER Pulse 74 12/30/2022 7:20 AM 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 FARM MANAGER Temperature 36.7 ??C (98.1 ??F) 12/30/2022 7:19 AM CS T Respiratory Rate 18 12/30/2022 7:19 AM 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 FARM MANAGER Oxygen Saturation 97% 12/30/2022 7:20 AM 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 FARM MANAGER Inhaled Oxygen Concentration - - Weight 62 kg (136 lb 9.6 oz) 12/30/2022 7:19 AM 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 FARM MANAGER Height - - Body Mass Index 20.77 08/31/2022 9:36 AM CDT documented in this encounter Progress Notes * Anita Gillespie MD - 12/30/2022 12:00 AM CST PATIENT NAME: ADI NICHOLS : 1995 JUSTEN: 12/30/2022 DIAGNOSES: 1. 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 2. 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 3. Bilateral pulmonary emboli diagnosed on 10/19/2017. TREATMENT AND DISEASE COURSE: 1. R-CHOP x 1, 08/25/2017. 2. Dose adjusted EPOCH-R x 5, 09/15/2017 to December 2017. Post-C2 PET: HI (5PS = 4), CR post C5 3. [...] biopsy, 08/31/2022, findings consistent with CVID . INTERVAL HISTORY: Adi returns to [facility] for continued follow-up of his history of PTLD. I last saw him on 05/13/2022. Since that time, he has had a bit of a complicated course, which is his norm. 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 He had originally been tried on maribavir for a few months, but this caused a terrible taste and did not appear to be controlling his CMV any better. He was restarted on Valcyte in mid July. He has had multiple sinus infections requiring long courses of oral antibiotics. On 08/28/2022 he underwent endoscopic sinus surgery with frontal sinusotomy, fusion navigation, bilateral maxillary antrostomy, frontoethmoidal sinusotomy, spheno idotomy, and septoplasty. Since the surgery he has had fewer sinus infections, although on 12/21/2022 he saw ENT and they again placed him on a 3-week course of Augmentin. After a few days they changed it to Levaquin for 10 days, as the culture showed Moraxella catarrhalis which was not sensitive to Augmentin. He still has occasional nosebleeds. He has not noted any significant adenopathy, fevers, night sweats, or weight loss. He continues to work full-time. He is still getting monthly home IVIG. PHYSICAL EXAMINATION: General: A very well-appearing young man who is accompanied by his girlfriend, Ita, and her son, Gamal. Performance Status: 0 Vital Signs: Weight 62 kg, which is stable. Blood pressure 102/67, pulse 74, temperature 36.7, O2 sat 97%. Lungs: Clear to auscultation. Nodes: He has 3 or 4 subcentimeter right posterior cervical nodes, 1 cm left jugulodigastric, subcentimeter left submandibular, several subcentimeter mid left posterior cervical nodes, and 1 low leftposterior cervical node measuring 1 cm. There is a mobile 1 cm right axillary lymph node and a halfa dozen 1 cm left axillary lymph nodes, all of which are quite mobile. There is no inguinal adenopathy. Abdomen: No hepatosplenomegaly. Extremities: No edema. HEENT: Oropharynx and oral cavity clear. Skin: He has a 5 mm subcutaneous nodule which is mobile and is located just below the right areola over the right anterior chest wall. LABORATORIES: WBC 7.2, hemoglobin 14.9, platelets 196, ANC 2.5, ALC 3.3. Chemistry is within normal limits other than a total bili of 1.5, alk phos 315, AST 67, and LDH 312. IMPRESSION AND PLAN: 1. History of C-MYC positive posttransplant lymphoproliferative disorder, Nadine-De La Cruz virus positive, stage EMY, IPI 3. This 27-year-old gentleman is now 5 years status post 1 cycle of R-CHOP and 5 cycles of dose-adjusted EPOCH-R. He has never had any evidence of recurrence. He has had intermittent adenopathy which has been biopsied and found to be reactive. 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 He remains on valganciclovir, and his lymph node exam was better than I have felt it in several years. He still has a few subcentimeter nodes. We will continue to follow him expectantly, and we will change his follow-up to annual. We offered release from the [facility] Cancer C enter, given the low likelihood of a relapse of his PTLD at this juncture, but he would like to continue follow-up and we are happy to see him. 2. Recurrent sinus infections with recent sinus surgery. Although patient was just on antibiotics within the last week to 10 days, he thinks that overall his nasal congestion and sinus congestion andinfections have been markedly improved since his sinus surgery in August. He follows closely with ENT. 3. Common variable immunodeficiency. Patient remains on HyQvia and will continue this indefinitely. 4. History of liver transplant. The patient remains on tacrolimus. He still has elevated LFTs. He had a new liver biopsy on 08/31/2022 which showed findings concerning for CVID. 5. Persistent cytomegalovirus viremia. The patient had a trial of maribavir, but his CMV titers didnot improve and he was intolerant to the medication because of a terrible taste. He is back on valganciclovir. 6. Fertility testing. At the time of his last visit, the patient was interested in semen analysis, and I forgot to ask him about this today. I do not see a result in the computer but will have my team touch base with him by phone. 7. Healthcare maintenance. The patient is not interested in any further COVID vaccinations. He had Evusheld in May 2022. ELECTRONICALLY SIGNED - 01/01/2023 01:59 PM Anita Gillespie M.D. accounts payable coordinator Emily Chair in Medical Oncology NB/carrie cc: LENO AGUSTIN MD [address] [facility] [address], [place] [address] GUERO COLUNGA DO [address] [place] [address] / JIL VALDEZ M.D. [address] [place] [address] LINDA CHAPA MD [address] [place] [address] [address] [place] [address] / OUGHBRED HORSE FARM MANAGER documented in this encounter Miscellaneous Notes * Addendum Note - Svetlana Bhakta RN - 12/30/2022 7:30 AM CSTAddended by: SVETLANA BHAKTA on: 11/02/2023 08:15 PM Modules accepted: Orders OUGHBRED HORSE FARM MANAGER documented in this encounter Plan of Treatment Scheduled Procedures Name Priority Associated Diagnoses Date/Ti me COLONOSCOPY Encounter for screening for colorectal cancer in high risk patient Family history of rectal cancer documented as of this encounter Results * (ABNORMAL) CBC with auto differential (11/03/2023 7:39 AM 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 FARM MANAGER) WBC 7.3 3.8 - 9.8 K/cumm [facility] Comment:Testing performed by : [address] [phone] Hgb 12.0(L) 13.8 - 17.2 g/dL [facility] Comment:Testing performed by : [address] [phone] Hct 34.7(L) 40.7 - 50.3 % [facility] Comment:Testing performed by : [address] [phone] Plt 294 140 - 440 K/cumm [facility] Comment:Testing performed by : [address] [address] MPV 7.7 6.8 - 10.4 fL [facility] Comment:Testing performed by : [address] [address] RBC 2.99(L) 4.50 - 5.70 M/cumm [facility] Comment:Testing performed by : [address] [address] MCV 115.9(H) 80.0 - 97.6 fL [facility] Comment:Testing performed by : [address] [address] MCH 40.2(H) 26.7 - 33.7 pg [facility] Comment:Testing performed by : [facility], [address] [place] [phone] MCHC 34.7 32.7 - 35.5 g/dL [facility] Comment:Testing performed by : [facility], [address] [place] [phone] RDW CV 15.5(H) 11.8 - 14.6 % [facility] Comment:Testing performed by : [facility], [address] [place] [phone] NRBC abs 0.00 0.00 - 0.01 K/cumm [facility] Comment:Testing performed by : [facility], [address] [place] [phone] Blood 11/03/2023 7:39 AM 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 FARM MANAGER 11/03/2023 7:40 AM 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 FARM MANAGER Anita Gillespie MD LAB BLOOD ORDERABLES Final Result [facility] Department [place] [address] * (ABNORMAL) Comprehensive metabolic panel (11/03/2023 7:39 AM 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 FARM MANAGER) Sodium 137 135 - 145 mmol/L [facility] Comment:Testing performed by : [facility], [address] [place] [phone] Potassium, pl 4.2 3.3 - 4.9 mmol/L [facility] Comment:Testing performed by : [facility], [address] [place] [phone] Chloride 105 97 - 110 mmol/L [facility] Comment:Testing performed by : [facility], [address] [place] [phone] CO2 26 22 - 32 mmol/L [facility] Comment:Testing performed by : [facility], [address] [place] [phone] Anion gap 6 2 - 15 mmol/L [facility] Comment:Testing performed by : [facility], [address] [place] [phone] BUN 13 6 - 25 mg/dL [facility] Comment:Testing performed by : [facility], [address] [place] [phone] Creatinine 0.84 0.80 - 1.30 mg/dL [facility] Comment:Testing performed by : [facility], [address] [place] [phone] Glucose 90 70 - 199 mg/dL [facility] Comment: [...] was last revised 2022. Testing performed by: [facility], [address] [place] [phone] Calcium 8.2(L) 8.5 - 10.3 mg/dL [facility] Comment:Testing performed by : [address] [address] Bilirubin, total 2.4(H) 0.1 - 1.2 mg/dL [facility] Comment:Testing performed by : [address] [address] Protein, pl 5.2(L) 6.5 - 8.5 g/dL [facility] Comment:Testing performed by : [address] [address] Albumin 2.8(L) 3.5 - 5.0 g/dL [facility] Comment:Testing performed by : [address] [address] Alk phos 265(H) 40 - 130 Units/L [facility] Comment:Testing performed by : [address] [address] ALT 36 7 - 55 Units/L [facility] Comment:Testing performed by : [facility], [address] [place] [phone] AST 49 10 - 50 Units/L [facility] Comment:Testing performed by : [facility], [address] [place] [phone] Blood 11/03/2023 7:39 AM 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 FARM MANAGER 11/03/2023 7:40 AM 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 FARM MANAGER Anita Gillespie MD LAB BLOOD ORDERABLES Final Result Performing Organization Address [facility] Co de Phone Number [facility] Department of Laboratories [place], [place] [id number] * (ABNORMAL) Lactate dehydrogenase (LD) (11/03/2023 7:39 AM 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 FARM MANAGER) Lactate dehydrogenase (LDH) 387(H) 100 - 250 Units/L [facility] Comment:Testing performed by : [facility], [address] [place] [phone] Blood 11/03/2023 7:39 AM 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 FARM MANAGER 11/03/2023 7:40 AM 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 FARM MANAGER Anita Gillespie MD LAB BLOOD ORDERABLES Final Result Performing Organization Address [facility] de Phone Number 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 OK to come off rhino/enterovirus precautions. Adriane Herrera RN 08/25/2023 08/25/20232022 2:08 PM CDT COVID: Suspected 10/03/2023 10/03/2023 10/03/2023 9:58 AM 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 FARM MANAGER Rhino/Enterovirus 10/03/2023 10/03/2023 10/17/2023 3:05 AM 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 FARM MANAGER documented as of this encounter Care Teams Casing Material Weigher Relationship Specialty Start Date End Date Guero Colunga DO PCP - General Internal Medicine 03/22/19 04/18/23 Adi Nick MD [address] [place] [address] PCP - General Family Practice 04/19/23 04/19/23 Adi Nick MD [address] [place] [address] PCP - General Family Practice 05/31/23 04/25/24 Amber Montesinos RN Rubber Press Operator Transplant 11/17/19 Jil Valdez MD Consulting Physician Infectious Diseases 01/10/20 Anita Gillespie MD Medical Oncologist/Potato Pancake Frier Medical Oncology 10/07/20 Tabitha Hurley MD [address] [place], [place] [address] Consulting Physician Rheumatology 10/22/21 Massiel Gastelum MD [address] [place], [place] [address] Consulting Physician Otolaryngology 08/27/22 documented as of this encounter
--- OUTSIDE RECORDS SUMMARY | 2024-10-28 06:10 | XMS_ITS | Encounter Summary ---
Author Organization [facility] Address [address] [place] [address] Phone Care Team Providers Care Javascript Application Developer Name Role Phone Guero Colunga DO Primary Care Provider [phone] Amber Montesinos RN Unavailable [phone] Jil Duncan MD Unavailable [phone] Anita Gillespie MD Unavailable [phone] Tabitha Hurley MD Unavailable [phone] Massiel Gastelum MD Unavailable [phone] Encounter Details Date Type Department Care Team (Late st Contact Info) Description 01/21/2023 Telephone [facility] [address] [facility] [address] [place] [address] Katlyn Momin Social History Tobacco Use Types Packs/Day Years [...] on file Legal Sex Male 6:28 AM PHYSICIAN 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 The patient thought the appt was on Wed and will call back toreschedule. COTTON documented in this encounter Plan of Treatment Scheduled Procedures Name Priority Associated Diagnoses Date/Ti me COLONOSCOPY Encounter for screening for colorectal cancer in high risk patient Family history of rectal cancer documented as of this encounter Visit Diagnoses Not on filedocumented in this encounter Care Teams Javascript Application Developer Relationship Specialty Start Date End Date Guero Colunga DO PCP - General Internal Medicine 03/22/19 04/18/23 Amber Montesinos, SHAILESH Health Policy Manager Transplant 11/17/19 Jil Duncan MD Consulting Physician Infectious Diseases 01/10/20 Anita Gillespie MD Medical Oncologist/Veneer Jointer Returner Medical Oncology 10/07/20 Tabitha Hurley MD [address] [place] [address] Consulting Physician Rheumatology 10/22/21 Massiel Gastelum MD [address] [place] [address] Consulting Physician Otolaryngology 08/27/22 documented as of this encounter
--- OUTSIDE RECORDS SUMMARY | 2024-10-28 06:10 | XMS_ITS | Encounter Summary ---
Author Organization [facility] Address [address] [place] [address] Phone Care Team Providers Care Overedger Name Role Phone Amber Montesinos RN Unavailable [phone] Jil Duncan MD Unavailable [phone] Anita Gillespie MD Unavailable [phone] Tabitha Hurley MD Unavailable [phone] Massiel Gastelum MD Unavailable [phone] Beka Nick MD Primary Care Provider [phone] Encounter Details Date Type Department Care Team (Late st Contact Info) Description 08/19/2023 Orders Only [facility] On[facility] [address] 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 Lab orders sent to be drawn locally, and faxed to office. 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) Immunocompromised (HCC) Hypogammaglobulinemia (HCC) Expected: 08/19/2023 (Approximate), Expires: 08/19/2024 Scheduled Procedures Name Priority Associated Diagnoses Date/Ti nh COLONOSCOPY Encounter for screening for colorectal cancer in high risk patient Family history of rectal cancer documented as of this encounter Visit Diagnoses Diagnosis 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 Immunocompromised (HCC) Unspecified immunity deficiency Hypogammaglobulinemia (HCC) Unspecified hypogammaglobulinemia documented in this encounter Care Teams Overedger Relationship Specialty Start Date End Date Beka Nick MD [address] [place] [address] PCP - General Family Practice 05/31/23 04/25/24 Amber Montesinos, SHAILESH Assistant Men'S Lacrosse Coach Transplant 11/17/19 Jil Duncan MD Consulting Physician Infectious Diseases 01/10/20 Anita Gillespie MD Medical Oncologist/Mushroom Laborer Medical Oncology 10/07/20 Tabitha Hurley MD [address] [facility] [address] [place], [place] [id number] Consulting Physician Rheumatology 10/22/21 Massiel Gastelum MD [address] [place], [place] [address] Consulting Physician Otolaryngology 08/27/22 documented as of this encounter
--- OUTSIDE RECORDS SUMMARY | 2024-10-28 06:10 | XMS_ITS | Encounter Summary ---
Author Organization [facility] Healthcare Address [address] [place] [address] Care Team Providers Care Shaker Tender Name Role Phone Amber Montesinos RN Unavailable [phone] Jil Duncan MD Unavailable [phone] Anita Gillespie MD Unavailable [phone] Tabitha Hurley MD Unavailable [phone] Massiel Gastelum MD Unavailable Beka Nick MD Primary Care Provider [phone] Encounter Details Date Type Department Care Team (Late st Contact Info) Description 07/27/2023 Documentation [facility] Transplant Liver [address] 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 Pool and Madelaine Martínez NP with transplant hepatology. Plan to schedule patient for liver US with doppler and repeat labs. Patient scheduled 08/07/23 at 7:15am on on main campus. Arrival time 6:45am and NPO six hours prior. Appointment details reviewed via [employer]. documented in this encounter Plan of Treatment Scheduled Procedures Name Priority Associated Diagnoses Date/Ti me COLONOSCOPY Encounter for screening for colorectal cancer in high risk patient Family history of rectal cancer documented as of this encounter Visit Diagnoses Not on filedocumented in this encounter Care Teams Shaker Tender Relationship Specialty Start Date End Date Beka Nick MD [address] [place] [address] PCP - General Family Practice 05/31/23 04/25/24 Amber Montesinos RN Tooth Polisher Transplant 11/17/19 Jil Duncan MD Consulting Physician Infectious Diseases 01/10/20 Anita Gillespie MD Medical Oncologist/Maxillofacial Pathology Medical Oncology 10/07/20 Tabitha Hurley MD [address] [place] [address] Consulting Physician Rheumatology 10/22/21 Massiel Gastelum MD [address] [place] [address] Consulting Physician Otolaryngology 08/27/22 documented as of this encounter
--- OUTSIDE RECORDS SUMMARY | 2024-10-28 06:10 | XMS_ITS | Encounter Summary ---
Author Organization [facility] Address [address] [place] [address] Phone Care Team Providers Care Lime Sludge Mixer Name Role Phone Amber Montesinos RN Unavailable [phone] Jil Duncan MD Unavailable [phone] Anita Gillespie MD Unavailable [phone] Tabitha Hurley MD Unavailable [phone] Massiel Gastelum MD Unavailable [phone] Beka Nick MD Primary Care Provider [phone] Reason for Visit * Reason Comments Sinusitis Encounter Details Date Type Department Care Team (Late st Contact Info) Description 04/19/2023 8:20 AM CDT Office Visit [facility] ENT [address] [facility] Medical Office Building [address] [place] [address] Massiel Gastelum MD [address] [facility] [address] [place] [address] Chronic pansinusitis (Primary Dx); Immunocompromised patient (HCC) Social History Tobacco Use Types Packs/Day [...] on file 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 Saline irrigation (Sinus Rinse > Navage) daily with budesonide Saline spray as often as you'd like documented in this encounter Ordered Prescriptions Prescription Sig Dispense Quantity Refills Last Filled Start Date End Date predniSONE (DELTASONE) 10 mg tablet 40 mg for 3 days, 30 mg for 3 days, 20 mg for 3 days 10 mg for 3 days 30 tablet 04/19/2023 05/31/2023 documented in this encounter Progress Notes * Massiel Gastelum MD - 04/19/2023 8:20 AM CDT Otolaryngology Post-operative follow-up Note Subjective Patient ID: Beka Nichols is a 28 y.o. male. Chief Complaint: Chief Complaint Patient presents with Sinusitis HPI: Beka Nichols is a 28 y.o. 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 He was last seen 09/07/22 with At the time of surgery, he was noted to have generalized edematous and friable mucosa throughout his sinuses. Septum deviated to the left, narrowing access to the middle meatus. Left middle turbinateresected. Augmentin x 3 weeks 03/30/2023. Augmentin x 3 weeks 12/21/2022 He is accompanied by his today who provide some additional history. Temporary improvement, though not dramatic, when on antibiotics. At baseline, he has thick nasal mucus. Saline irrigation- too drying. Nosebleeds. Dry sensation. No other saline used. He does not consistently use saline irrigation with either sinus rinse nor lavaged. AM - head pressure Thick mucus when blows nose. Also thick PND. No notable sense of smell. Ear infection on left when on antibiotics. Feels full or pressure on both sides at baseline. No recent prednisone use. He is followed by Dr. Gillespie in Medical Oncology and by Dr. Duncan in Infectious Disease. Objective There were no vitals taken for this visit. Physical Exam GENERAL: Well-developed, well-nourished. Voice quality is normal. NEURO/PSYCH: Cranial nerves II-XII are grossly normal. Affect is normal. Alert and oriented. EYES: Extraocular muscles are intact. HEAD/FACE: Normocephalic; atraumatic. No facial skin lesions. Facial strength is 5/5 and the face is symmetric. Bilateral parotid gland palpation revealed no masses or tenderness. Sinus palpation is non-tender. EARS: External ears have no skin lesions. Hearing is grossly intact. Right: EAC clear. TM intact with myringosclerosis, middle ear possible effusion Left: EAC clear. TM intact with myringosclerosis. Middle ear possible effusion. NOSE: External nose has no skin lesions. Nasal mucosa is moist. Septum is predominantly midline caudally. Left nasal cavity narrow with prominent turbinate. Both nasal cavities with dried mucus. See endoscopy. NECK: No masses. HEME/LYMPHATIC: No cervical lymphadenopathy. MUSCULOSKELETAL: Ambulates without difficulty. Neck full range of motion. RESPIRATORY: Breathing comfortably without audible stridor, stertor or wheeze. Procedure: Nasal Endoscopy: Due to inadequate visualization on anterior rhinoscopy, rigid nasal endoscopy was undertaken. After topical nasal decongestant and anesthetic, the rigid nasal endoscope R7 was introduced into the right and left nasal cavity. Bilateral mildly edematous nasal mucosa with thick mucus suctioned from both sides with Valles tip suction. Culture taken from the right middle meatus. Leftsynechiae between the septum and inferior turbinate, not obstructive. Maxillary antrostomies patentbilaterally, edematous mucosa with thick pale mucus. Nasopharynx with thick mucus, suctioned. Edematous mucosa along the skull base bilaterally, no obvious polyps. Culture taken in the right nasal cavity and middle meatus. The endoscope was removed and the patient tolerated the procedure well. Assessment/Plan 1. Chronic pansinusitis 2. Immunocompromised patient (HCC) Follow culture - right middle meatus/nasal cavity. Prednisone 40 mg taper Resume saline nasal irrigation daily with budesonide via Navage. Ideally, he will be able to use the saline sinus rinse in the future. Recommend Xlear to help manage the dryness with the saline. Will discuss with Drs Jose Migeul and Dakota regarding possible further treatments for underlying immunodeficiency. . Follow-up 4-6 weeks. Consider ear tube placement, should he continue to have ear fullness and pressure. Michael Gastelum MD FACS Professor Department of Otolaryngology [facility] [employer] documented in this encounter Plan of Treatment Scheduled Procedures Name Priority Associated Diagnoses Date/Ti me COLONOSCOPY Encounter for screening for colorectal cancer in high risk patient Family history of rectal cancer documented as of this encounter Results * (ABNORMAL) Aerobic and anaerobic culture and gram stain Wound Sinus (04/19/2023 1:44 PM CDT) Direct Specimen Exam Stain: Rare polymorphonuclear leukocytes seen. No organisms seen. [facility] Report Final Report: Few Haemophilus influenzae , Beta lactamase negative Rare Mixed skin microorganisms. (.) [facility] Organism HAEMOPHILUS INFLUENZAE [facility] Organism MIXED SKIN MICROORGANISMS. [facility] Wound (Sinus) 04/19/2023 1:4 4 PM CDT 04/19/2023 3:49 PM CDT Narrative [facility] - 04/26/2023 10:46 AM CDT R nasal cavity Specimen received on an ESwab. Testing performed by [facility] Laboratory ([phone]) Specimens submitted from normally sterile body sites [...] interpretive data was last revised on 2019. us Massiel Gastelum MD LAB MICROBIOLOGY - GEN ERAL ORDERABLES Final Result [facility] Department [place] [address] documented in this encounter Visit Diagnoses Diagnosis Chronic pansinusitis- Primary Other chronic sinusitis Immunocompromised patient (HCC) Chronic pansinusitis Other chronic sinusitis documented in this encounter Care Teams Lime Sludge Mixer Relationship Specialty Start Date End Date Beka Nick MD [address] [place] [address] PCP - General Family Practice 04/19/23 04/19/23 Amber Montesinos RN Music Cataloguer Transplant 11/17/19 Jil Duncan MD Consulting Physician Infectious Diseases 01/10/20 Anita Gillespie MD Medical Oncologist/Ribbing Machine Operator Medical Oncology 10/07/20 Tabitha Hurley MD [address] [place] [address] Consulting Physician Rheumatology 10/22/21 Massiel Gastelum MD [address] [place] [address] Consulting Physician Otolaryngology 08/27/22 documented as of this encounter
--- OUTSIDE RECORDS SUMMARY | 2024-10-28 06:10 | XMS_ITS | Encounter Summary ---
Author Organization [facility] Healthcare Address [address] [place] [address] Care Team Providers Care Slate Cutter Operator Name Role Phone Amber Montesinos RN Unavailable [phone] Jil Duncan MD Unavailable [phone] Anita Gillespie MD Unavailable [phone] Tabitha Hurley MD Unavailable [phone] Massiel Gastelum MD Unavailable [phone] Beka Nick MD Primary Care Provider [phone] Encounter Details Date Type Department Care Team (Latest Contact Info) Description 07/29/2023 3:27 PM CDT - 07/29/2023 11:59 PM CDT Hospital Encounter [address] [address] 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[facility] [...] on file 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 Do not swallow. 4 maribavir (LIVTENCITY) 200 mg tablet Take 2 tablets (400 mg total) by mouth 2 (two) times a day 28 tablet 06/04/2023 3 maribavir (LIVTENCITY) 200 mg tablet Take 2 tablets (400 mg total) by mouth 2 (two) times a day 120 tablet 5 06/04/2023 3 tacrolimus (PROGRAF) 0.5 mg immediate-releas e capsuleIndicatio ns:Prevention of Liver Transplant Rejection Take 1 capsule (0.5 mg total) by mouth every other day 15 capsule 11 07/28/2023 3 traZODone (DESYREL) 50 mg tablet Take 1 tablet (50 mg total) by mouth nightly 30 tablet 2 12/03/2022 3 ursodioL (ACTIGALL) 300 mg capsuleIndicatio ns:Cholelithiasi s Prevention Take 2 capsules (600 mg total) by mouth daily with dinner 180 capsule 3 07/27/2023 4 documented as of this encounter Discharge Disposition Disposition Code Departure Means Destination Discharge to home or self care documented in this encounter Plan of Treatment Scheduled Procedures Name Priority Associated Diagnoses Date/Ti md COLONOSCOPY Encounter for screening for colorectal cancer in high risk patient Family history of rectal cancer documented as of this encounter Procedures Procedure Name Priority Date/Time Associated Diagnosis Comments CYTOMEGALOVIRUS (CMV) DNA, QUANT GEN LAB Routine 07/29/2023 3:27 PM CDT MISCELLANEOUS MICROBIOLOGY TEST Routine 07/29/2023 3:27 PM CDT documented in this encounter Results * Miscellaneous microbiology test Miscellaneous (07/29/2023 3:27 PM CDT) Report Final Report: For additional result information, see attached scanned report. Comment:Testing performed by : [facility], [address] [place]., [address] Miscellaneous 07/29/2023 3:2 7 PM CDT 08/03/2023 11:59 AM CDT Narrative [facility] - 08/10/2023 10:58 PM CDT Test: CMV Resistance Source: Plasma [facility] ([phone]) Theodore Gresham MD LAB MICROBIOLOGY - GENERAL ORDERABLES Final Result [facility] [address] Department [place] [address] * (ABNORMAL) Cytomegalovirus (CMV) DNA PCR, quantitative Blood (07/29/2023 3:27 PM CDT) CMV DNA Detected( A) [facility] Comment: Interpretive Data: The quantifiable range of this assay is 34 IUnits/mL to 10,000,000 IUnits/mL (1.53 log IUnits/mL to 7.0 log IUnits/mL). Testing was performed by the [facility]IA 6800 CMV Test ([facility] Testing performed at [facility]. Current interpretive data was last revised on 2021. Testing performed by: [facility], [address] [place]., [address] CMV DNA IU/mL 3,030 IUnits/mL [facility] Comment:Testing performed by : [facility], [address] [place]., [address] CMV DNA log IU/mL 3.48 log IUnits/mL [facility] Comment:Testing performed by : [facility], [address] [place]., [address] Blood 07/29/2023 3:27 PM CDT 07/30/2023 9:58 AM CDT Lisandra Auguste CAR RIDER LAB MICROBIOLOGY - GENERA L ORDERABLES Final Result [facility] [address] Department [place] [address] documented in this encounter Visit Diagnoses Diagnosis 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 documented in this encounter Care Teams Slate Cutter Operator Relationship Specialty Start Date End Date Beka Nick MD [address] [place] [address] PCP - General Family Practice 05/31/23 04/25/24 Amber Montesinos, SHAILESH Tractor Sweeper Driver Transplant 11/17/19 Jil Duncan MD Consulting Physician Infectious Diseases 01/10/20 Anita Gillespie MD Medical Oncologist/Server Support Technician Medical Oncology 10/07/20 Tabitha Hurley MD [address] [place] [address] Consulting Physician Rheumatology 10/22/21 Massiel Gastelum MD [address] [place] [address] Consulting Physician Otolaryngology 08/27/22 documented as of this encounter
--- OUTSIDE RECORDS SUMMARY | 2024-10-28 06:10 | XMS_ITS | Encounter Summary ---
Author Organization [facility] Healthcare Address [address] [place] [address] Care Team Providers Care Acoustical Tile Patternmaker Name Role Phone Amber Montesinos RN Unavailable [phone] Jil Duncan MD Unavailable [phone] Anita Gillespie MD Unavailable [phone] Tabitha Hurley MD Unavailable [phone] Massiel Gastelum MD Unavailable [phone] Beka Nick MD Primary Care Provider [phone] Encounter Details Date Type Department Care Team (Late st Contact Info) Description 07/23/2023 Telephone [facility] Transplant Liver [address] [facility] [address] [phone] [place], [place] [id number] Amber Montesinos, RN Social History Tobacco Use [...] on file 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 Pt stating that he [facility] Let him know that his lft's were stable but his bilirubin had gone up. Pt stating that his mom thinks his eyes appear more yellow but he has not noticed. He is not having any issues with RUQ pain, fevers, itchiness, or n/v. He states he has recently felt bloated. He is not constipated. He actually believes his stools have been more loose since starting the maribavir which he states he has discussed with Dr. Duncan's team. He has not had any missed doses of his immunosuppression or ursodiol. Confirmed this was a true tacrolimus trough. Let him know that they may want to repeat some type of imaging but coordinator would review with our team and call him back with updates. He states he did update his insurance recently but does not have the card. He states his mom has a copy of his new ID number at home so coordinator will request info via [email or web address]. documented in this encounter Plan of Treatment Scheduled Procedures Name Priority Associated Diagnoses Date/Ti mt COLONOSCOPY Encounter for screening for colorectal cancer in high risk patient Family history of rectal cancer documented as of this encounter Visit Diagnoses Not on filedocumented in this encounter Care Teams Acoustical Tile Patternmaker Relationship Specialty Start Date End Date Bkea Nick MD [address] [place] [address] PCP - General Family Practice 05/31/23 04/25/24 Amber Montesinos RN Manager Social Work Transplant 11/17/19 Jil Duncan MD Consulting Physician Infectious Diseases 01/10/20 Anita Gillespie MD Medical Oncologist/Correspondence School Instructor Medical Oncology 10/07/20 Tabitha Hurley MD [address] [facility] [address] [place] [address] Consulting Physician Rheumatology 10/22/21 Massiel Gastelum MD [address] [place] [address] Consulting Physician Otolaryngology 08/27/22 documented as of this encounter
--- OUTSIDE RECORDS SUMMARY | 2024-10-28 06:10 | XMS_ITS | Encounter Summary ---
Author Organization [facility] Healthcare Address [address] [place] [address] Care Team Providers Care Manager Coding Name Role Phone Amber Montesinos RN Unavailable [phone] Jil Duncan MD Unavailable [phone] Anita Gillespie MD Unavailable [phone] Tabitha Hurley MD Unavailable [phone] Massiel Gastelum MD Unavailable [phone] Beka Nick MD Primary Care Provider [phone] Encounter Details Date Type Department Care Team (Late st Contact Info) Description 07/17/2023 Orders Only [facility] Health Information Management [address] [place] [address] Scanning, Provider Social History Tobacco Use Types [...] file 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 Gender Identity Not on file Sexual Orientation Straight 08/22/2021 9: 23 AM CDT documented as of this encounter Plan of Treatment Scheduled Procedures Name Priority Associated Diagnoses Date/Ti me COLONOSCOPY Encounter for screening for colorectal cancer in high risk patient Family history of rectal cancer documented as of this encounter Procedures Procedure Name Priority Date/Time Associated Diagnosis Comments SCAN - LABS 07/17/2023 11:55 AM CDT documented in this encounter Results * SCAN - LABS (07/17/2023 11:55 AM CDT) us Provider Scanning Final Result documented in this encounter Visit Diagnoses Not on filedocumented in this encounter Care Teams Manager Coding Relationship Specialty Start Date End Date Beka Nick MD [address] [place] [address] PCP - General Family Practice 05/31/23 04/25/24 Amber Montesinos, SHAILESH Radiology Teacher Transplant 11/17/19 Jil Duncan MD Consulting Physician Infectious Diseases 01/10/20 Anita Gillespie MD Medical Oncologist/Special Events Director Medical Oncology 10/07/20 Tabitha Hurley MD [address] [place] [address] Consulting Physician Rheumatology 10/22/21 Massiel Gastelum MD [address] [place] [address] Consulting Physician Otolaryngology 08/27/22 documented as of this encounter
--- OUTSIDE RECORDS SUMMARY | 2024-10-28 06:10 | XMS_ITS | Encounter Summary ---
Author Organization [facility] Address [address] [facility] [address] [place] [address] Care Team Providers Care Certified Professional Controller Name Role Phone Guero Colunga Primary Care Provider [phone] Amber Montesinos RN Unavailable [phone] Jil Duncan MD Unavailable [phone] Anita Gillespie MD Unavailable [phone] Tabitha Hurley MD Unavailable [phone] Massiel Gastelum MD Unavailable [phone] Encounter Details Date Type Department Care Team (Late st Contact Info) Description 02/12/2023 1:00 PM CDT Lab [facility] Outpatient Lab at [address] [address] 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[facility]) Social History Tobacco Use Types Packs/Day Years [...] on file 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 Gender Identity Not on file Sexual Orientation [...] disease documented in this encounter Care Teams Certified Professional Controller Relationship Specialty Start Date End Date Guero Colunga DO PCP - General Internal Medicine 03/22/19 04/18/23 Amber Montesinos, RN Governor Assembler Hydraulic Transplant 11/17/19 Jil Duncan MD Consulting Physician Infectious Diseases 01/10/20 Anita Gillespie MD Medical Oncologist/Coal Bagger Medical Oncology 10/07/20 Tabitha Hurley MD [address] [place] [address] Consulting Physician Rheumatology 10/22/21 Massiel Gastelum MD [address] [place] [address] Consulting Physician Otolaryngology 08/27/22 documented as of this encounter
--- OUTSIDE RECORDS SUMMARY | 2024-10-28 06:10 | XMS_ITS | Encounter Summary ---
Author Organization [facility] Address [address] [place] [address] Phone Care Team Providers Care Marketing Editor Name Role Phone Guero Colunga DO Primary Care Provider [phone] Amber Montesinos RN Unavailable [phone] Jil Duncan MD Unavailable [phone] Anita Gillespie MD Unavailable [phone] Tabitha Hurley MD Unavailable [phone] Massiel Gastelum MD Unavailable [phone] Encounter Details Date Type Department Care Team (Late st Contact Info) Description 03/30/2023 Telephone [facility] [address] 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 Take at least 2 weeks. Use the full three weeks if you're notbetter. Please also make sure you are using the saline irrigation at least daily, if not more often. And we have follow-up scheduled in a few weeks. We can see how you're doing at that time. Sincerely, Bonita Gastelum----- Message from Beka Nichols sent at 03/24/2023 10:43 AM CDT ----- Regarding: Antibiotics Contact: So I have been battling some allergies or sinus infection for the past couple of days. This is my third day. My symptoms are coughing, sneezing, head congestion, mucus yellow in color savi thick, when I blow my nose or cough it up. So far no fever or achy feeling. Woke up this morning with scratchy throat and trouble talking, but that has gotten better. Just wanting to know if I could get some an tibiotics sent to [facility] on [address] [facility]. If you need to talk to me my number is [phone]. Thank You. documented in this encounter Plan of Treatment Scheduled Procedures Name Priority Associated Diagnoses Date/Ti me COLONOSCOPY Encounter for screening for colorectal cancer in high risk patient Family history of rectal cancer documented as of this encounter Visit Diagnoses Not on filedocumented in this encounter Care Teams Marketing Editor Relationship Specialty Start Date End Date Cristine DO Guero PCP - General Internal Medicine 03/22/19 04/18/23 Amber Montesinos, SHAILESH Applications Scientist Transplant 11/17/19 Jil Duncan MD Consulting Physician Infectious Diseases 01/10/20 Anita Gillespie MD Medical Oncologist/Dye Machine Tender Medical Oncology 10/07/20 Tabitha Hurley MD [address] [place] [address] Consulting Physician Rheumatology 10/22/21 Massiel Gastelum MD [address] [place] [address] Consulting Physician Otolaryngology 08/27/22 documented as of this encounter
--- OUTSIDE RECORDS SUMMARY | 2024-10-28 06:10 | XMS_ITS | Encounter Summary ---
Author Organization [facility] Healthcare Address [address] [place] [address] Care Team Providers Care Dog Groomer Name Role Phone Amber Montesinos RN Unavailable [phone] Jil Duncan MD Unavailable [phone] Anita Gillespie MD Unavailable [phone] Tabitha Hurley MD Unavailable [phone] Massiel Gastelum MD Unavailable [phone] Beka Nick MD Primary Care Provider [phone] Encounter Details Date Type Department Care Team (Late st Contact Info) Description 08/04/2023 Orders Only [facility] [address] [place] [address] Scanning, Provider Social History Tobacco Use Types [...] on file 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 Gender Identity Not on file Sexual Orientation Straight 08/22/2021 9: 23 AM CDT documented as of this encounter Plan of Treatment Scheduled Procedures Name Priority Associated Diagnoses Date/Ti me COLONOSCOPY Encounter for screening for colorectal cancer in high risk patient Family history of rectal cancer documented as of this encounter Procedures Procedure Name Priority Date/Time Associated Diagnosis Comments SCAN - LABS 08/04/2023 3:40 PM CDT documented in this encounter Results * SCAN - LABS (08/04/2023 3:40 PM CDT) us Provider Scanning Final Result documented in this encounter Visit Diagnoses Not on filedocumented in this encounter Care Teams Dog Groomer Relationship Specialty Start Date End Date Beka Nick MD [address] [place] [address] PCP - General Family Practice 05/31/23 04/25/24 Amber Montesinos, SHAILESH Supervisor Drying And Softening Transplant 11/17/19 Jil Duncan MD Consulting Physician Infectious Diseases 01/10/20 Anita Gillespie MD Medical Oncologist/Business Area Manager Medical Oncology 10/07/20 Tabitha Hurley MD [address] [place] [address] Consulting Physician Rheumatology 10/22/21 Massiel Gastelum MD [address] [place] [address] Consulting Physician Otolaryngology 08/27/22 documented as of this encounter
--- OUTSIDE RECORDS SUMMARY | 2024-10-28 06:10 | XMS_ITS | Encounter Summary ---
Author Organization [facility] Healthcare Address [address] [place] [address] Care Team Providers Care Tool Shaper Set Up Operator Name Role Phone Amber Montesinos RN Unavailable [phone] Jil Duncan MD Unavailable [phone] Anita Gillespie MD Unavailable [phone] Tabitha Hurley MD Unavailable [phone] Massiel Gastelum MD Unavailable [phone] Beka Nick MD Primary Care Provider [phone] Encounter Details Date Type Department Care Team (Late st Contact Info) Description 06/01/2023 Documentation [facility] Transplant Liver [address] [facility] [id number] [place] [address] Amber Montesinos, RN Social History Tobacco Use [...] on file 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 Sent [employer] message that ptneeds to have updated labs with his tacrolimus level drawn as this was unable to be added on to this week's testing. He states his recent labs were drawn at [facility] outpatient lab in [place]. Updated orders sent. documented in this encounter Plan of Treatment Scheduled Procedures Name Priority Associated Diagnoses Date/Ti me COLONOSCOPY Encounter for screening for colorectal cancer in high risk patient Family history of rectal cancer documented as of this encounter Visit Diagnoses Diagnosis History of liver transplant (CMS/HCC) (HCC)- Primary Liver replaced by transplant documented in this encounter Care Teams Tool Shaper Set Up Operator Relationship Specialty Start Date End Date Beka Nick MD [address] [place] [address] PCP - General Family Practice 05/31/23 04/25/24 Amber Montesinos RN Enrollment Processor Transplant 11/17/19 Jil Duncan MD Consulting Physician Infectious Diseases 01/10/20 Anita Gillespie MD Medical Oncologist/Customer Contact Sales Associate Medical Oncology 10/07/20 Tabitha Hurley MD [address] [place] [address] Consulting Physician Rheumatology 10/22/21 Massiel Gastelum MD [address] [place] [address] Consulting Physician Otolaryngology 08/27/22 documented as of this encounter
--- OUTSIDE RECORDS SUMMARY | 2024-10-28 06:10 | XMS_ITS | Encounter Summary ---
Author Organization [facility] Address [address] [place] [address] Phone Care Team Providers Care Wood Caulker Name Role Phone Amber Montesinos RN Unavailable [phone] Jil Duncan MD Unavailable [phone] Anita Gillespie MD Unavailable [phone] Tabitha Hurley MD Unavailable [phone] Massiel Gastelum MD Unavailable [phone] Encounter Details Date Type Department Care Team (Late st Contact Info) Description 04/28/2023 Telephone 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 [employer] message sent to patient to discontinue Valcyte. Will send order for maribavir 400 mg PO BID to [facility]. Plan to repeat CMV PCR 2 weeks after starting maribavir. documented in this encounter Plan of Treatment Scheduled Procedures Name Priority Associated Diagnoses Date/Ti me COLONOSCOPY Encounter for screening for colorectal cancer in high risk patient Family history of rectal cancer documented as of this encounter Visit Diagnoses Not on filedocumented in this encounter Discontinued Medications Medication Sig Discontinue Reason Start Date End Da te valGANciclovir (VALCYTE) 450 mg tabletIndications:cytome galovirus disease Take 2 tablets (900 mg total) by mouth 2 (two) times a day Therapy completed 02/08/2023 04/28/2023 documented as of this encounter Care Teams Wood Caulker Relationship Specialty Start Date End Date Amber Montesinos RN Room Manager Transplant 11/17/19 Jil Duncan MD Consulting Physician Infectious Diseases 01/10/20 Anita Gillespie MD Medical Oncologist/Lacquer Polisher Medical Oncology 10/07/20 Tabitha Hurley MD [address] [place], [place] [address] Consulting Physician Rheumatology 10/22/21 Massiel Gastelum MD [address] [place] [address] Consulting Physician Otolaryngology 08/27/22 documented as of this encounter
--- OUTSIDE RECORDS SUMMARY | 2024-10-28 06:10 | XMS_ITS | Encounter Summary ---
Author Organization [facility] Address [address] [facility] [address] [place] [address] Care Team Providers Care Political Director Name Role Phone Guero Colunga Primary Care Provider [phone] Amber Montesinos RN Unavailable [phone] Jil Duncan MD Unavailable [phone] Anita Gillespie MD Unavailable [phone] Tabitha Hurley MD Unavailable [phone] Massiel Gastelum MD Unavailable [phone] Encounter Details Date Type Department Care Team (Late st Contact Info) Description 03/19/2023 10:00 AM CDT Lab [facility] Outpatient Lab at [address] [address] Liver replaced by transplant (HCC) (Primary Dx) Social History Tobacco Use [...] file 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 Gender Identity Not on file Sexual Orientation [...] replaced by transplant documented in this encounter Orders Lab Orders Without Results Count Last Ordered D ate First Ordered Date CBC WITH AUTO DIFFERENTIAL 1 03/19/2023 COMPREHENSIVE METABOLIC PANEL 1 03/19/2023 TACROLIMUS LEVEL, TROUGH 1 03/19/2023 documented in this encounter Care Teams Political Director Relationship Specialty Start Date End Date Guero Colunga DO PCP - General Internal Medicine 03/22/19 04/18/23 Amber Montesinos RN Piercing Machine Operator Transplant 11/17/19 Jil Duncan MD Consulting Physician Infectious Diseases 01/10/20 Anita Gillespie MD Medical Oncologist/Patient Transport Officer Medical Oncology 10/07/20 Tabitha Hurley MD [address] [place] [address] Consulting Physician Rheumatology 10/22/21 Massiel Gastelum MD [address] [place] [address] Consulting Physician Otolaryngology 08/27/22 documented as of this encounter
--- OUTSIDE RECORDS SUMMARY | 2024-10-28 06:10 | XMS_ITS | Encounter Summary ---
Author Organization [facility] Address [address] [facility] [address] [place] [address] Care Team Providers Care Legal Editor Name Role Phone Amber Montesinos RN Unavailable [phone] Jil Duncan MD Unavailable [phone] Anita Gillespie MD Unavailable [phone] Tabitha Hurley MD Unavailable [phone] Massiel Gastelum MD Unavailable [phone] Beka Nick MD Primary Care Provider [phone] Encounter Details Date Type Department Care Team (Late st Contact Info) Description 06/04/2023 10:00 AM CDT Lab [facility] Outpatient Lab at [address] [address] Chronic pansinusitis (Primary Dx) Social History Tobacco Use Types [...] on file 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 Gender Identity Not on file Sexual Orientation [...] sinusitis documented in this encounter Care Teams Legal Editor Relationship Specialty Start Date End Date Beka Nick MD [address] [place] [address] PCP - General Family Practice 05/31/23 04/25/24 Amber Montesinos, SHAILESH Labour Market Economist Transplant 11/17/19 Jil Duncan MD Consulting Physician Infectious Diseases 01/10/20 Anita Gillespie MD Medical Oncologist/Pilot Steam Yacht Medical Oncology 10/07/20 Tabitha Hurley MD [address] [place] [address] Consulting Physician Rheumatology 10/22/21 Massiel Gastelum MD [address] [place] [address] Consulting Physician Otolaryngology 08/27/22 documented as of this encounter
--- OUTSIDE RECORDS SUMMARY | 2024-10-28 06:10 | XMS_ITS | Encounter Summary ---
Author Organization [facility] Address [address] [facility] [address] [place] [address] Care Team Providers Care Patient Support Specialist Name Role Phone Amber Montesinos RN Unavailable [phone] Jil Duncan MD Unavailable [phone] Anita Gillespie MD Unavailable [phone] Tabitha Hurley MD Unavailable [phone] Massiel Gastelum MD Unavailable [phone] Beka Nick MD Primary Care Provider [phone] Encounter Details Date Type Department Care Team (Late st Contact Info) Description 07/29/2023 3:15 PM CDT Lab [facility] Outpatient Lab at [address] [address] Social History Tobacco Use Types Packs/Day Years [...] on file 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 Gender Identity Not on file Sexual Orientation Straight 08/22/2021 9: 23 AM CDT documented as of this encounter Plan of Treatment Scheduled Procedures Name Priority Associated Diagnoses Date/Ti me COLONOSCOPY Encounter for screening for colorectal cancer in high risk patient Family history of rectal cancer documented as of this encounter Visit Diagnoses Not on filedocumented in this encounter Care Teams Patient Support Specialist Relationship Specialty Start Date End Date Beka Nick MD [address] [place] [address] PCP - General Family Practice 05/31/23 04/25/24 Amber Montesinos, SHAILESH Metal Buggy Operator Transplant 11/17/19 Jil Duncan MD Consulting Physician Infectious Diseases 01/10/20 Anita Gillespie MD Medical Oncologist/Contract Engineer Medical Oncology 10/07/20 Tabitha Hurlye MD [address] [place] [address] Consulting Physician Rheumatology 10/22/21 Massiel Gastelum MD [address] [place] [address] Consulting Physician Otolaryngology 08/27/22 documented as of this encounter
--- OUTSIDE RECORDS SUMMARY | 2024-10-28 06:10 | XMS_ITS | Encounter Summary ---
Author Organization [facility] Healthcare Address [address] [place] [address] Care Team Providers Care Side Seam Machine Operator Name Role Phone Amber Montesinos RN Unavailable [phone] Jil Duncan MD Unavailable [phone] Anita Gillespie MD Unavailable [phone] Tabitha Hurley MD Unavailable [phone] Massiel Gastelum MD Unavailable [phone] Beka Nick MD Primary Care Provider [phone] Encounter Details Date Type Department Care Team (Latest Contact Info) Description 05/31/2023 8:57 AM CDT - 05/31/2023 11:59 PM CDT Hospital Encounter [address] [address] 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[facility]) Discharge Disposition: Discharge to home or [...] on file 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 Gender Identity Not on file Sexual [...] 4 tacrolimus (PROGRAF) 0.5 mg immediate-releas e capsuleIndicatio ns:Prevention of Liver Transplant Rejection Take 1 capsule (0.5 mg total) by mouth every other day 15 capsule 11 01/14/2023 3 traZODone (DESYREL) 50 mg tablet Take 1 tablet (50 mg total) by mouth nightly 30 tablet 2 12/03/2022 3 ursodioL (ACTIGALL) 300 mg capsule Take 2 capsules (600 mg total) by mouth daily with dinner 180 capsule 3 12/31/2022 3 documented as of this encounter Discharge Disposition Disposition Code Departure Means Destination Discharge to home or self care documented in this encounter Plan of Treatment Scheduled Procedures Name Priority Associated Diagnoses Date/Ti fl COLONOSCOPY Encounter for screening for colorectal cancer in high risk patient Family history of rectal cancer documented as of this encounter Procedures Procedure Name Priority Date/Time Associated Diagnosis Comments CYTOMEGALOVIRUS (CMV) DNA, QUANT GEN LAB Routine 05/31/2023 2:30 PM CDT 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HCC) GLUCOSE, RANDOM (OUTREACH) Routine 05/31/2023 2:30 PM CDT 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HCC) EGFR Routine 05/31/2023 2:30 PM CDT 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HCC) DIFFERENTIAL AUTO Routine 05/31/2023 2:3 0 PM CDT 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HCC) COMPREHENSIVE METABOLIC PANEL WITHOUT GLUCOSE (OUTREACH) Routine 05/31/2023 2:30 PM CDT 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HCC) HC COMP METABOLIC PANEL Routine 05/31/20 23 2:30 PM CDT 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HCC) CBC WITH AUTO DIFFERENTIAL Routine 05/31/2023 2:30 PM CDT 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HCC) documented in this encounter Results * eGFR (05/31/2023 2:30 PM CDT) [facility] eGFR 127 mL/min/1. 73 m2 [facility] Comment: Interpretive Data Reference Interval Normal ?>/= [...] interpretive data was last reviewed 2021. Blood 05/31/2023 2:30 PM CDT 05/31/2023 3:02 PM CDT us Lisandra Augutse NP LAB BLOOD ORDERABLES Chata venecia Result [facility] [address] Department [place] [address] * (ABNORMAL) Differential, auto (05/31/2023 2:30 PM CDT) Neutrophil abs 2.0 1.7 - 6.5 K/cumm [facility] Imm gran abs 0.0 0.0 - 0.1 K/cumm [facility] Lymphocyte abs 2.3 0.8 - 3.3 K/cumm [facility] Monocyte abs 1.6(H) 0.2 - 0.8 K/cumm [facility] Eosinophil abs 0.5 0.0 - 0.5 K/cumm [facility] Basophil abs 0.1 0.0 - 0.1 K/cumm [facility] Neutrophil pct 30.8 % [facility] Comment: Interpretive Data Percent cell count reference ranges are not reported, since discordance with absolute values may lead to misinterpretation of CBC data. Current Interpretive Data was last revised on 2018. Imm gran pct 0.2 % [facility] Comment: Interpretive Data Percent cell count reference ranges are not reported, since discordance with absolute values may lead to misinterpretation of CBC data. Current Interpretive Data was last revised on 2018. Lymphocyte pct 35.9 % [facility] Comment: Interpretive Data Percent cell count reference ranges are not reported, since discordance with absolute values may lead to misinterpretation of CBC data. Current Interpretive Data was last revised on 2018. Monocyte pct 25.0 % [facility] Comment: Interpretive Data Percent cell count reference ranges are not reported, since discordance with absolute values may lead to misinterpretation of CBC data. Current Interpretive Data was last revised on 2018. Eosinophil pct 7.0 % [facility] Comment: Interpretive Data Percent cell count reference ranges are not reported, since discordance with absolute values may lead to misinterpretation of CBC data. Current Interpretive Data was last revised on 2018. Basophil pct 1.1 % [facility] Comment: Interpretive Data Percent cell count reference ranges are not reported, since discordance with absolute values may lead to misinterpretation of CBC data. Current Interpretive Data was last revised on 2018. Blood 05/31/2023 2:30 PM CDT 05/31/2023 2:49 PM CDT Lisandra Bernstein'Brien AWS SOLUTION ARCHITECT LAB BLOOD ORDERABLES Chata l Result Performing Organization Address [facility] Co de Phone Number [facility] [address] [place] [address] * Glucose, random (Outreach) (05/31/2023 2:30 PM CDT) Glucose See Comment 51 - 373 [facility] Comment: no zazueta top sent Interpretive Data Fasting glucose >/= 126 mg/dl [...] interpretive data was last revised 2022. Blood 05/31/2023 2:30 PM CDT 05/31/2023 2:49 PM CDT Lisandra Auguste AWS SOLUTION ARCHITECT LAB BLOOD ORDERABLES Chata l Result Performing Organization Address [facility] Co de Phone Number [facility] [address] [place] [address] * (ABNORMAL) Comprehensive metabolic panel, without glucose (Outreach) (05/31/2023 2:30 PM CDT) Sodium 140 135 - 145 mmol/L [facility] Potassium, pl 4.1 3.3 - 4.9 mmol/L [facility] Chloride 112(H) 97 - 110 mmol/L [facility] CO2 21(L) 22 - 32 mmol/L [facility] Anion gap 7 2 - 15 mmol/L [facility] BUN 8 6 - 25 mg/dL [facility] Creatinine 0.70(L) 0.80 - 1.30 mg/dL [facility] Comment:Icteric sample, test results may be affected. Calcium 8.4(L) 8.5 - 10.3 mg/dL [facility] Protein, pl 5.0(L) 6.5 - 8.5 g/dL [facility] Albumin 3.1(L) 3.5 - 5.0 g/dL [facility] Bilirubin, total 1.8(H) 0.1 - 1.2 mg/dL [facility] Alk phos 232(H) 40 - 130 Units/L [facility] AST 73(H) 10 - 50 Units/L [facility] ALT 46 7 - 55 Units/L [facility] Blood 05/31/2023 2:30 PM CDT 05/31/2023 2:49 PM CDT us Lisandra Auguste NP LAB BLOOD ORDERABLES Chata cuadra Result [facility] [address] Department [place] [address] * (ABNORMAL) Cytomegalovirus (CMV) DNA PCR, quantitative Blood (05/31/2023 2:30 PM CDT) CMV DNA Detected( A) [facility] Comment: Interpretive Data: The quantifiable range of this assay is 34 IUnits/mL to 10,000,000 IUnits/mL (1.53 log IUnits/mL to 7.0 log IUnits/mL). Testing was performed by the NIA 6800 CMV Test ([employer] Testing performed at [facility]. Current interpretive data was last revised on 2021. Testing performed by: [facility], [address] [place]., [address] CMV DNA IU/mL 362 IUnits/mL [facility] Comment:Testing performed by : [facility], [address] [place]., [address] CMV DNA log IU/mL 2.56 log IUnits/mL [facility] Comment:Testing performed by : [facility], [address] [place]., [address] Blood 05/31/2023 2:30 PM CDT 06/01/2023 10:06 AM CDT us Lisandra Auguste AWS SOLUTION ARCHITECT LAB MICROBIOLOGY - GENERA L ORDERABLES Final Result [facility] [address] Department [place] [address] * (ABNORMAL) CBC with auto differential (05/31/2023 2:30 PM CDT) Pathologist [facility] WBC 6.4 3.8 - 9.9 K/cumm [facility] Hgb 12.9(L) 13.0 - 17.5 g/dL [facility] Hct 35.9(L) 38.9 - 50.3 % [facility] Plt 127(L) 150 - 400 K/cumm [facility] MPV 11.9 9.1 - 12.3 fL [facility] RBC 3.59(L) 4.30 - 5.80 M/cumm [facility] MCV 100.0(H) 81.3 - 96.4 fL [facility] MCH 35.9(H) 27.1 - 33.3 pg [facility] MCHC 35.9(H) 32.3 - 35.7 g/dL [facility] RDW CV 16.1(H) 11.1 - 14.9 % [facility] RDW SD 59.7(H) 35.7 - 48.1 fL [facility] NRBC abs 0.00 0.00 - 0.01 K/cumm [facility] Blood 05/31/2023 2:30 PM CDT 05/31/2023 2:49 PM CDT us Lisandra Auguste AWS SOLUTION ARCHITECT LAB BLOOD ORDERABLES Chata l Result [facility] [address] Department [place] [address] documented in this encounter Visit Diagnoses Diagnosis 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 documented in this encounter Care Teams Side Seam Machine Operator Relationship Specialty Start Date End Date Beka Nick MD [address] [place] [address] PCP - General Family Practice 05/31/23 04/25/24 Amber Montesinos, SHAILESH Go Go Dancer Transplant 11/17/19 Jil Duncan MD Consulting Physician Infectious Diseases 01/10/20 Anita Gillespie MD Medical Oncologist/Afternoon Nanny Medical Oncology 10/07/20 Tabitha Hurley MD [address] [place] [address] Consulting Physician Rheumatology 10/22/21 Massiel Gastelum MD [address] [place] [address] Consulting Physician Otolaryngology 08/27/22 documented as of this encounter
--- OUTSIDE RECORDS SUMMARY | 2024-10-28 06:10 | XMS_ITS | Encounter Summary ---
Author Organization [facility] Address [address] [place] [address] Phone Care Team Providers Care Copyman Name Role Phone Guero Colunga DO Primary Care Provider [phone] Amber Montesinos RN Unavailable [phone] Jil Duncan MD Unavailable [phone] Anita Gillespie MD Unavailable [phone] Tabitha Hurley MD Unavailable [phone] Massiel Gastelum MD Unavailable [phone] Encounter Details Date Type Department Care Team (Late st Contact Info) Description 01/05/[address] 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 ----- Message from Massiel Gastelum MD sent at 12/21/2022 5:37 PM DISABILITY AIDE ----- Please call patient to see whether he is doing better on the Augmentin, started after his office visit 12/21/2022. Thank you - AO BILITY AIDE BILITY AIDE documented in this encounter Plan of Treatment Scheduled Procedures Name Priority Associated Diagnoses Date/Ti me COLONOSCOPY Encounter for screening for colorectal cancer in high risk patient Family history of rectal cancer documented as of this encounter Visit Diagnoses Not on filedocumented in this encounter Care Teams Copyman Relationship Specialty Start Date End Date Guero Colunga DO PCP - General Internal Medicine 03/22/19 04/18/23 Amber Montesinos, SHAILESH Hip Hop Dancer Transplant 11/17/19 Jil Duncan MD Consulting Physician Infectious Diseases 01/10/20 Anita Gillespie MD Medical Oncologist/Cp Bleacher Operator Medical Oncology 10/07/20 Tabitha Hurley MD [address] [facility] [address] [place], [place] [id number] Consulting Physician Rheumatology 10/22/21 Massiel Gastelum MD [address] [place], [place] [id number] Consulting Physician Otolaryngology 08/27/22 documented as of this encounter
--- OUTSIDE RECORDS SUMMARY | 2024-10-28 06:10 | XMS_ITS | Encounter Summary ---
Author Organization [facility] Healthcare Address [address] [place] [address] Care Team Providers Care Manager Small Business Name Role Phone Amber Montesinos RN Unavailable [phone] Jil Duncan MD Unavailable [phone] Anita Gillespie MD Unavailable [phone] Tabitha Hurley MD Unavailable [phone] Massiel Gastelum MD Unavailable [phone] Beka Nick MD Primary Care Provider [phone] Reason for Referral * Diagnostic Imaging (Routine) - Closed Specialty Diagnoses / Procedures Referred By Contac t Referred To Contact Diagnoses History of liver transplant (CMS/HCC) (HCC) Elevated bilirubin LFT elevation Procedures US Liver Transplant with Doppler (C) David Pool MD [address] [facility] [address] [place] [address] Phone: tel: fax: [address] [address] Referral ID Status Reason Start Date Expiration Date Visits Re quested Visits Authorized [id number] Closed 07/26/2023 10/31/2023 1 1 Reason for Visit * Diagnostic Imaging (Routine) - Closed Specialty Diagnoses / Procedures Referred By Contac t Referred To Contact Diagnoses History of liver transplant (CMS/HCC) (HCC) Elevated bilirubin LFT elevation Procedures US Liver Transplant with Doppler (C) David Pool MD [address] [place] [address] Phone: tel: fax: [address] [phone] Referral ID Status Reason Start Date Expiration Date Visits Re quested Visits Authorized [id number] Closed 07/26/2023 10/31/2023 1 1 Encounter Details Date Type Department Care Team (Latest Contact Info) Description 08/07/2023 6:58 AM CDT - 08/07/2023 11:59 PM CDT Hospital Encounter 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 Sonographic evidence of left hemiliver transplantation. 2. Patent portal and hepatic venous systems. ??No thrombosis. 3. Patent hepatic arterial system. ??No thrombosis or stenosis. Dictated by: Marcie Elias MD The radiology attending physician has personally reviewed this study, and had reviewed and/or edited this written report and agrees with it. Electronically signed by: Roland Ogden M.D. Narrative 08/07/2023 12:40 PM CDT EXAMINATION: 1. LIMITED ABDOMINAL SONOGRAM 2. 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 The hemiliver is normal in size. ??The echotexture is normal. ??The echogenicity is normal. There is no surface nodularity. No focal solid lesions are visualized. ?? Gallbladder: The gallbladder is surgically absent. Bile [...] were used to evaluate the hepatic vasculature. ?? Portal veins: The main portal vein as well as the left branch have hepatopetal (antegrade) flow. ??No thrombosis is visualized. ?? Hepatic veins: The middle, right, and left hepatic veins are patent with antegrade flow. ?? Portosplenic confluence: The portosplenic confluence is patent [...] liver is patent with appropriate directional flow. ?? Procedure Note Roland Ogden MD - 08/07/2023 EXAMINATION: 1. LIMITED ABDOMINAL SONOGRAM 2. LIVER [...] liver is patent with appropriate directional flow. IMPRESSION: 1. Sonographic evidence of left hemiliver transplantation. 2. Patent portal and hepatic venous systems. No thrombosis. 3. Patent hepatic arterial system. No thrombosis or stenosis. Dictated by: Marcie Elias MD The radiology attending physician has personally reviewed this study, and had reviewed and/or edited this written report and agrees with it. Electronically signed by: Roland Ogden M.D. us David Pool MD IMG US PROCEDURES Final Result documented in this encounter Visit Diagnoses Diagnosis History of liver transplant (CMS/HCC) (HCC) Liver replaced by transplant Elevated bilirubin LFT elevation documented in this encounter Care Teams Manager Small Business Relationship Specialty Start Date End Date Beka Nick MD [address] [place] [address] PCP - General Family Practice 05/31/23 04/25/24 Amber Montesinos, RN Tilting Saw Operator Transplant 11/17/19 Jil Duncan MD Consulting Physician Infectious Diseases 01/10/20 Anita Gillespie MD Medical Oncologist/Low Pressure Boiler Tender Medical Oncology 10/07/20 Tabitha Hurley MD [address] [place] [address] Consulting Physician Rheumatology 10/22/21 Massiel Gastelum MD [address] [place] [address] Consulting Physician Otolaryngology 08/27/22 documented as of this encounter
--- OUTSIDE RECORDS SUMMARY | 2024-10-28 06:10 | XMS_ITS | Encounter Summary ---
Author Organization [facility] Address [address] [place] [address] Phone Care Team Providers Care Automotive Glass Mechanic Name Role Phone Guero Colunga DO Primary Care Provider [phone] Amber Montesinos RN Unavailable [phone] Jil Duncan MD Unavailable [phone] Anita Gillespie MD Unavailable [phone] Tabitha Hurley MD Unavailable [phone] Massiel Gastelum MD Unavailable Encounter Details Date Type Department Care Team (Late st Contact Info) Description 12/30/2022 9:30 AM GAME MANAGER Office Visit [facility] [address] 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 Gender Identity Not on file Sexual Orientation Straight 08/22/2021 9: 23 AM CDT documented as of this encounter Last Filed Vital Signs Vital Sign Reading Time Taken Comments Blood Pressure 109/71 12/30/2022 7:58 AM GAME MANAGER Pulse 72 12/30/2022 7:58 AM GAME MANAGER Temperature 37.2 ??C (99 ??F) 12/30/2022 7:58 AM GAME MANAGER Respiratory Rate - - Oxygen Saturation - - Inhaled Oxygen Concentration - - Weight 60.7 kg (133 lb 12.8 oz) 12/30/2022 7:58 AM GAME MANAGER Height 172.7 cm (5' 8 ) 12/30/2022 7:58 AM GAME MANAGER Body Mass Index 20.34 12/30/2022 7:58 AM GAME MANAGER documented in this encounter Progress Notes * David Pool MD - 12/30/2022 9:30 AM CST Images from the original note were not included. LIVER TRANSPLANT CLINIC VISIT Mailing Address: [facility] [address] Date: 12/30/22 PCP: Guero Colunga DO Reason for consult: Post-Liver Transplant Follow-up History of Present Illness Beka Nichols is a 27 y.o. 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 Currently, he feels well; sinus symptoms (headache, mucus) improving with his recent course of Levaquin. Using pillbox to ensure he doesn't forget to take his medications. He was having loose stools day and night, particularly after meals, between Nov 2022 to mid Dec 2022; there was no blood in her stools, and it was not preceded by any abnormal events and occurred prior to the abx he took for his sinusitis. The diarrhea has since resolved. Active issues: - Abnormal liver enzymes: predominantly cholestatic pattern w/ rising ALT 04/2022. 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 Will see [facility] 01/26/23 - Sees ENT (Dr. Gastelum, last 12/2022) for chronic pansinusitis s/p endosocpic sinus surgery 08/2022; cultures obtained 12/21/22 from sinuses grew mixed microorganisms including Moraxella catarrhalis, getting Levaquin x10 d (will finish soon). - Sees ID (Dr. Auguste, last 07/09/22) for CMV viremia and CMV+ lymph nodes (10/07/21); got a surveillance CMV PCR with labs today. - Saw [facility] (Dr. Gillespie) earlier today for PTLD follow-up, remains in remission. 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 These overall findings show evidence of chronic hepatitis with an unusual sinusoidal pattern of lymphocytic infiltrate associated with periportal interface activity and zone 3 hepatocyte dropout. 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 Differential diagnosis includes lymphocyte predominent autoimmune hepatitis. No evidence of EBV-assocaited hepatitis or EBV+ PTLD. Of note, there is also increased parenchymal nodularity identified on reticulin stain, above what could be atributed to increased sinusoidal fibrosis. This could representearly/evolving nodular regenerative hyperplasia, which is a known form of CVID-related liver disease. Review of Systems: Pertinent positive and negative systems are described in the HPI; the remainder of the 14 systems are negative. Prior Endoscopy No prior colonoscopy Past History Past Medical History: Diagnosis Date [...] N/A 05/22/2014 EXCHANGE PICC LINE Left 12/24/2021 IR PICC LINE PLACEMENT > 5 YEARS [...] Anesthesia problems Other No Known Problems Father Mother was only 30 years old at diagnosis of rectal cancer. Social History Tobacco Use Smoking status: Never Smokeless tobacco: Current Types: Chew Substance and Sexual Activity Drug use: Not Currently Sexual activity: Defer Alcohol Use: Not At Risk Frequency of Alcohol Consumption: 2-4 times a month Average Number of Drinks: 1 or 2 Frequency of Binge Drinking: Never No Known Allergies Medications Current Outpatient Medications on File Prior to Visit Medication Sig Dispense Refill acetaminophen (TYLENOL) 500 mg tablet Take 2 tablets (1,000 mg total) by mouth every 6 (six) hours as needed for pain 30 tablet 1 budesonide (PULMICORT) 0.5 mg/2 mL nebulizer solution Take 0.5 mg by nebulization daily Rinse mouthwith water after use. Do not swallow. levoFLOXacin (Levaquin) 500 mg tablet Take 1 tablet (500 mg total) by mouth daily for 10 days 10 tablet 0 tacrolimus (PROGRAF) 0.5 mg immediate-release capsule Take 1 capsule (0.5 mg total) by mouth every other day (Patient taking differently: Take 0.5 mg by mouth every other day) traZODone (DESYREL) 50 mg tablet Take 1 tablet (50 mg total) by mouth nightly 30 tablet 2 ursodioL (ACTIGALL) 300 mg capsule Take 2 capsules (600 mg total) by mouth daily with dinner 180 capsule 3 amoxicillin-clavulanate (Augmentin) 875-125 mg per tablet Take 1 tablet by mouth 2 (two) times a day for 21 days (Patient not taking: Reported on 12/30/2022) 42 tablet 0 budesonide (Pulmicort) 0.5 mg/2 mL nebulizer solution Administer 2 mL (0.5 mg total) into each nostril daily Mix 4ml into 240ml nasal saline and perform nasal rinse (Patient not taking: No sig reported) 180 mL 5 ibuprofen (ADVIL,MOTRIN) 600 mg tablet Take 1 tablet (600 mg total) by mouth every 6 (six) hours asneeded for pain (Patient not taking: Reported on 12/30/2022) 30 tablet 1 oxyCODONE (ROXICODONE) 5 mg immediate release tablet Take 1 tablet (5 mg total) by mouth every 4 (four) hours as needed for pain (Patient not taking: Reported on 12/30/2022) 15 tablet 0 predniSONE (DELTASONE) 10 mg tablet 40 mg for 3 days, 30 mg for 3 days, 20 mg for 3 days 10 mg for 3 days (Patient not taking: Reported on 12/30/2022) 30 tablet 0 No current facility-administered medications on file prior to visit. Objective BP 109/71 Pulse 72 Temp 37.2 ??C (99 ??F) Ht 172.7 cm (5' 8 ) Wt 60.7 kg (133 lb 12.8 oz) BMI 20.34 kg/m?? GEN: Well-developed, well-nourished, NAD. EYES: PERRL, EOMI, no scleral icterus ENT: MMM, posterior pharynx without exudates or erythema CV: RRR, +S1/S2, no murmurs, rubs, or gallops. PULM: CTAB. Nml WOB. No wheezing or crackles heard. GI: S/NT/ND, bs normal, no guarding or rebound. No organomegaly, masses or fullness. Healed chevronsurgical scar MSK/Ext: Warm. No edema, clubbing, cyanosis, or erythema. NEURO: AOx3, no focal deficits noted. N SKIN: No obvious rashes, lesions noted. Lab Results Component Value Date WBC 7.2 12/30/2022 HGB 14.9 12/30/2022 LABPLAT 196 12/30/2022 MCV 102.6 (H) 12/30/2022 RDW 13.0 02/28/2022 LYMPHSABS 3.3 12/30/2022 MONOABS 1.2 12/30/2022 EOSABS 0.1 12/30/2022 SODIUM 142 12/30/2022 POTASSIUM 4.4 12/30/2022 CHLORIDE 110 12/30/2022 CO2 25 12/30/2022 BUNSER 7 (L) 12/30/2022 CREATININE 0.61 (L) 12/30/2022 GLUCOSE 95 12/30/2022 CALCIUM 8.9 12/30/2022 ANIONGAP 7 12/30/2022 AST 67 (H) 12/30/2022 ALT 45 12/30/2022 ALKPHOS 315 (H) 12/30/2022 LABGGT 95 (H) 02/28/2022 BILITOT 1.5 (H) 12/30/2022 BILIDIR 1.5 (H) 07/09/2022 ALBUMIN 3.4 (L) 12/30/2022 PROT 5.9 (L) 12/30/2022 Lab Results Component Value Date APTT 30 08/31/2022 PT 11.3 08/31/2022 INR 1.0 08/31/2022 Lab Results Component Value Date TRIG 139 06/12/2020 CHOL 135 06/12/2020 HDL 31 (L) 06/12/2020 LDLCALC 76 06/12/2020 Lab Results Component Value Date AFP 2.4 02/02/2020 Lab Results Component Value Date HEPAIGM Nonreactive 11/30/2017 HEPBSAG Nonreactive 11/30/2017 HEPBSAB Nonreactive 08/18/2017 HEPBCAB Nonreactive 11/30/2017 HEPCAB Nonreactive 11/30/2017 KEISHA Negative 05/07/2021 IGG 835 07/11/2022 IMMUNG 805.0 07/10/2022 IGM 98 01/14/2017 IMMUNM <25.0 (L) 07/10/2022 FERRITIN 366 04/04/2017 TRANSFERSAT 8 (L) 04/04/2017 Lab Results Component Value Date [id number] Nonreactive 01/03/2019 IGA <50 (L) 01/14/2017 Resulted in the Past 12 Months 02/07/22 0830 01/31/22 0900 01/24/22 0825 01/17/22 0900 01/10/22 0900 TACROTR 10.0 9.5 8.9 7.2 5.9 Radiology & other Diagnostics: MRI Abd 05/02/2022 Liver: There are redemonstrated findings of liver [...] left portal and hepatic veins are patent. Pancreas, Adrenals, Kidneys: Normal Spleen: Absent Other Findings: Enlarged right cardiophrenic lymph node measuring 1.3 cm in short axis (series 25, image 47) is not significantly changed. Enlarged posterior mediastinal lymph node (series 15, image 58) measures 2.0 cm in short axis, unchanged. Multiple enlarged retroperitoneal and mesenteric lymph nodes are unchanged from 10/01/2021. No suspicious osseous lesion. IMPRESSION: 1. No biliary ductal dilation. 2. 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 No suspicious liver lesion. Assessment/Plan Beka Nichols is a 27 y.o. 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 Given hx of PTLD, recurrent CMV, recurrent sinusitis, immunosuppression has been minimized. The recurrent hx of CMV and sinusitis raised concern for CVID in 2020 (09/16/2020 IgG <300, IgA <50, IgM <25). 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 - Immunosuppression regimen: Tacrolimus IR 0.5 mg every other day - Liver bx done 08/2022 ensured no acute cellular rejection; IVIG started - Monitoring drug level and liver enzymes every month #Healthcare maintenance: - Htn: BP 109/71; no need for anti-htn medications - HLD: last checked in 2019; total cholesterol only 135. - DM: Random sugars are wnl. - Renal fxn: Cr <1 - Dental: Reminded pt to see a dentist. - Immunization: Avoid live vaccines. - Skin: No suspicious rashes/moles - Colon: Mother diagnosed with rectal ca at age 30. Brother had colo already and no polyps. Will request a colonoscopy, can be done anytime this year. For this visit, we reviewed the patient's previous medical documentation, laboratory data, radiographic imaging studies, and endoscopic data. The risks of the patient's condition and proposed treatment modalities were discussed and questions answered. David Pool MD Flight Attendant Inflight Servicesinspector line Gastroenterology Division Hepatology Section (Transplant) MANAGER MANAGER documented in this encounter Miscellaneous Notes * Addendum Note - David Pool MD - 12/30/2022 9:30 AM CSTAddended by: DAVID POOL on: 01/06/2023 08:03 AM Modules accepted: Orders MANAGER documented in this encounter Plan of Treatment Scheduled Procedures Name Priority Associated Diagnoses Date/Ti me COLONOSCOPY Encounter for screening for colorectal cancer in high risk patient Family history of rectal cancer documented as of this encounter Visit Diagnoses Diagnosis History of liver transplant (CMS/HCC) (HCC)- Primary Liver replaced by transplant Encounter for therapeutic drug level monitoring Encounter for screening for colorectal cancer in high risk patient Family history of rectal cancer documented in this encounter Discontinued Medications Medication Sig Discontinue Reason Start Date End Da te amoxicillin-clavulanat e (Augmentin) 875-125 mg per tablet Take 1 tablet by mouth 2 (two) times a day for 21 days Therapy completed 12/21/2022 12/30/2022 budesonide (Pulmicort) 0.5 mg/2 mL nebulizer solution Administer 2 mL (0.5 mg total) into each nostril daily Mix 4ml into 240ml nasal saline and perform nasal rinse Therapy completed 02/18/2022 12/30/2022 ibuprofen (ADVIL,MOTRIN) 600 mg tablet Take 1 tablet (600 mg total) by mouth every 6 (six) hours as needed for pain Therapy completed 08/28/2022 12/30/2022 oxyCODONE (ROXICODONE) 5 mg immediate release tabletIndications:Pain Take 1 tablet (5 mg total) by mouth every 4 (four) hours as needed for pain Therapy completed 08/28/2022 12/30/2022 predniSONE (DELTASONE) 10 mg tablet 40 mg for 3 days, 30 mg for 3 days, 20 mg for 3 days 10 mg for 3 days Therapy completed 09/07/2022 12/30/2022 documented as of this encounter Historical Medications * This list may reflect changes made after this encounter. budesonide (PULMICORT) 0.5 mg/2 mL nebulizer solution Take 0.5 mg by nebulization daily Rinse mouth with water after use. Do not swallow. 4 added in this encounter Orders Case Request Count Last Ordered Date First Orde red Date GI DIRECT ACCESS CASE REQUEST 1 01/06/2023 documented in this encounter Care Teams Automotive Glass Mechanic Relationship Specialty Start Date End Date Guero Colunga DO PCP - General Internal Medicine 03/22/19 04/18/23 Amber Montesinos, SHAILESH Skiver Box Toe Transplant 11/17/19 Jil Duncan MD Consulting Physician Infectious Diseases 01/10/20 Anita Gillespie MD Medical Oncologist/Vice Chancellor Medical Oncology 10/07/20 Tabitha Hurley MD [address] [facility] [address] [place] [address] Consulting Physician Rheumatology 10/22/21 Massiel Gastelum MD [address] [place] [address] Consulting Physician Otolaryngology 08/27/22 documented as of this encounter
--- OUTSIDE RECORDS SUMMARY | 2024-10-28 06:10 | XMS_ITS | Encounter Summary ---
Author Organization [facility] Address [address] [place] [address] Care Team Providers Care Senior Programmer Name Role Phone mAber Montesinos RN Unavailable [phone] Jil Duncan MD Unavailable [phone] Anita Gillespie MD Unavailable [phone] Tabitha Hurley MD Unavailable [phone] Massiel Gastelum MD Unavailable [phone] Beka Nick MD Primary Care Provider [phone] Encounter Details Date Type Department Care Team (Latest Contact Info) Description 06/04/2023 - 06/04/2023 11:59 PM CDT Hospital Encounter [facility] [address] [place] [address] Discharge Disposition: Discharge to home or [...] file 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 Gender Identity Not on file Sexual Orientation Straight 08/22/2021 9: 23 AM CDT documented as of this encounter Medications at Time of Discharge ofloxacin (FLOXIN) 0.3 % otic solution Administer 5 drops into each ear daily for 7 days 1.75 mL 06/03/2023 3 acetaminophen (TYLENOL) 500 mg tablet Take [...] Scheduled Procedures Name Priority Associated Diagnoses Date/Ti de COLONOSCOPY Encounter for screening for colorectal cancer in high risk patient Family history of rectal cancer documented as of this encounter Procedures Procedure Name Priority Date/Time Associated Diagnosis Comments EGFR Routine 06/04/2023 8:52 AM CDT TACROLIMUS LEVEL, RANDOM Routine 06/04/2023 8:52 AM CDT CBC WITHOUT DIFFERENTIAL Routine 06/04/2023 8:52 AM CDT GAMMA GT Routine 06/04/2023 8:52 AM CDT COMPREHENSIVE METABOLIC PANEL Routine 06/04/2023 8:52 AM CDT documented in this encounter Results * eGFR (06/04/2023 8:52 AM CDT) [facility] eGFR 123 mL/min/1. 73 m2 [facility] Comment: Collection date/time has been modified to: 08:52:00. ??Previous collection date/time: 00:00:00. Interpretive Data Reference Interval Normal ?>/= 90 [...] interpretive data was last reviewed 2021. Blood 06/04/2023 8:52 AM CDT 06/04/2023 3:38 PM CDT us Theodore Gresham MD LAB BLOOD ORDERABLES Edite d Result - Final [facility] [id number] Department [place] [address] * (ABNORMAL) CBC without differential (06/04/2023 8:52 AM CDT) WBC 8.7 3.8 - 9.9 K/cumm [facility] Comment:Collection date/time has been modified to: 08:52:00. Previous collection date/time: 00:00:00. Hgb 13.7 13.0 - 17.5 g/dL [facility] Comment:Collection date/time has been modified to: 08:52:00. Previous collection date/time: 00:00:00. Hct 39.4 38.9 - 50.3 % [facility] Comment:Collection date/time has been modified to: 08:52:00. Previous collection date/time: 00:00:00. Plt 142(L) 150 - 400 K/cumm [facility] Comment:Collection date/time has been modified to: 08:52:00. Previous collection date/time: 00:00:00. MPV 12.0 9.1 - 12.3 fL [facility] Comment:Collection date/time has been modified to: 08:52:00. Previous collection date/time: 00:00:00. RBC 3.90(L) 4.30 - 5.80 M/cumm [facility] Comment:Collection date/time has been modified to: 08:52:00. Previous collection date/time: 00:00:00. MCV 101.0(H) 81.3 - 96.4 fL [facility] Comment:Collection date/time has been modified to: 08:52:00. Previous collection date/time: 00:00:00. MCH 35.1(H) 27.1 - 33.3 pg [facility] Comment:Collection date/time has been modified to: 08:52:00. Previous collection date/time: 00:00:00. MCHC 34.8 32.3 - 35.7 g/dL [facility] Comment:Collection date/time has been modified to: 08:52:00. Previous collection date/time: 00:00:00. RDW CV 17.2(H) 11.1 - 14.9 % [facility] Comment:Collection date/time has been modified to: 08:52:00. Previous collection date/time: 00:00:00. RDW SD 63.9(H) 35.7 - 48.1 fL [facility] Comment:Collection date/time has been modified to: 08:52:00. Previous collection date/time: 00:00:00. NRBC abs 0.00 0.00 - 0.01 K/cumm [facility] Comment:Collection date/time has been modified to: 08:52:00. Previous collection date/time: 00:00:00. Blood 06/04/2023 8:52 AM CDT 06/04/2023 2:54 PM CDT Theodore Gersham MD LAB BLOOD ORDERABLES Edite d Result - Final [facility] [id number] [facility] Department [place] [address] * (ABNORMAL) Comprehensive metabolic panel (06/04/2023 8:52 AM CDT) Sodium 143 135 - 145 mmol/L [facility] Comment:Collection date/time has been modified to: 08:52:00. Previous collection date/time: 00:00:00. Potassium, pl 4.2 3.3 - 4.9 mmol/L [facility] Comment:Collection date/time has been modified to: 08:52:00. Previous collection date/time: 00:00:00. Chloride 112(H) 97 - 110 mmol/L [facility] Comment:Collection date/time has been modified to: 08:52:00. Previous collection date/time: 00:00:00. CO2 22 22 - 32 mmol/L [facility] Comment:Collection date/time has been modified to: 08:52:00. Previous collection date/time: 00:00:00. Anion gap 9 2 - 15 mmol/L [facility] Comment:Collection date/time has been modified to: 08:52:00. Previous collection date/time: 00:00:00. BUN 9 6 - 25 mg/dL [facility] Comment:Collection date/time has been modified to: 08:52:00. Previous collection date/time: 00:00:00. Creatinine 0.78(L) 0.80 - 1.30 mg/dL [facility] Comment:Icteric sample, test results may be affected. Collection date/time has been modified to: 08:52:00. Previous collection date/time: 00:00:00. Glucose 93 70 - 199 mg/dL [facility] Comment: Collection date/time has been modified to: 08:52:00. ??Previous collection date/time: 00:00:00. Interpretive Data Fasting glucose >/= 126 mg/dl [...] 2022. Calcium 8.5 8.5 - 10.3 mg/dL [facility] Comment:Collection date/time has been modified to: 08:52:00. Previous collection date/time: 00:00:00. Bilirubin, total 2.3(H) 0.1 - 1.2 mg/dL [facility] Comment:Collection date/time has been modified to: 08:52:00. Previous collection date/time: 00:00:00. Protein, pl 5.3(L) 6.5 - 8.5 g/dL [facility] Comment:Collection date/time has been modified to: 08:52:00. Previous collection date/time: 00:00:00. Albumin 3.1(L) 3.5 - 5.0 g/dL [facility] Comment:Collection date/time has been modified to: 08:52:00. Previous collection date/time: 00:00:00. Alk phos 269(H) 40 - 130 Units/L [facility] Comment:Collection date/time has been modified to: 08:52:00. Previous collection date/time: 00:00:00. ALT 51 7 - 55 Units/L [facility] Comment:Collection date/time has been modified to: 08:52:00. Previous collection date/time: 00:00:00. AST 78(H) 10 - 50 Units/L [facility] Comment:Collection date/time has been modified to: 08:52:00. Previous collection date/time: 00:00:00. Blood 06/04/2023 8:52 AM CDT 06/04/2023 2:53 PM CDT Theodore Gresham MD LAB BLOOD ORDERABLES Edite d Result - Final [facility] [id number] Department [place] [address] * (ABNORMAL) Gamma GT (06/04/2023 8:52 AM CDT) GGT 74(H) 10 - 50 Units/L [facility] Comment:Collection date/time has been modified to: 08:52:00. Previous collection date/time: 00:00:00. Blood 06/04/2023 8:52 AM CDT 06/04/2023 2:53 PM CDT Theodore Gresham MD LAB BLOOD ORDERABLES Edite d Result - Final Performing Organization Address [facility] Co de Phone Number [facility] [address] [facility] [place] [address] * Tacrolimus level random (06/04/2023 8:52 AM CDT) Tacrolimus random 6.4 ng/mL [facility] Comment: Interpretive Data Testing performed by liquid chromatography-tandem mass spectrometry. ??Therapeutic concentrations vary depending on type of transplanted organ and time elapsed since transplant. ??Typical trough concentrations range from 5-15 ng/mL. ??This test was developed and its performance characteristics determined by the [facility] consistent with CLIA requirements. ??This test has not been cleared or approved by the [place] Food and Drug administration. ??Current interpretive data last reviewed 2020. Testing performed by: [facility], [address] [place]., [address] Blood 06/04/2023 8:52 AM CDT 06/05/2023 11:49 AM CDT us Theodore Gresham MD LAB BLOOD ORDERABLES Final Result Performing Organization Address [facility] de Phone Number [facility] [address] [place] [address] documented in this encounter Visit Diagnoses Not on filedocumented in this encounter Care Teams Senior Programmer Relationship Specialty Start Date End Date Beka Nick MD [address] [place] [address] PCP - General Family Practice 05/31/23 04/25/24 Amber Montesinos, RN Patrol Police Lieutenant Transplant 11/17/19 Jil Duncan MD Consulting Physician Infectious Diseases 01/10/20 Anita Gillespie MD Medical Oncologist/Belt Glass Sander Medical Oncology 10/07/20 Tabitha Hurley MD [address] [place] [address] Consulting Physician Rheumatology 10/22/21 Massiel Gastelum MD [address] [place] [address] Consulting Physician Otolaryngology 08/27/22 documented as of this encounter
--- OUTSIDE RECORDS SUMMARY | 2024-10-28 06:10 | XMS_ITS | Encounter Summary ---
Author Organization [facility] Address [address] [place] [address] Phone Care Team Providers Care Network Announcer Name Role Phone Amber Montesinos RN Unavailable [phone] Jil Duncan MD Unavailable [phone] Anita Gillespie MD Unavailable [phone] Tabitha Hurley MD Unavailable [phone] Massiel Gastelum MD Unavailable [phone] Beka Nick MD Primary Care Provider [phone] Encounter Details Date Type Department Care Team (Late st Contact Info) Description 06/03/2023 Orders Only [facility] ENT [address] [facility] Medical Office Building [address] [place] [address] Massiel Gastelum MD [facility]4 [facility] [address] [place] [address] Social History Tobacco Use Types [...] on file 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 Gender Identity Not on file Sexual Orientation Straight 08/22/2021 9: 23 AM CDT documented as of this encounter Ordered Prescriptions Prescription Sig Dispense Quantity Refills Last Filled Start Date End Date ofloxacin (FLOXIN) 0.3 % otic solution Administer 5 drops into each ear daily for 7 days 1.75 mL 06/03/2023 documented in this encounter Plan of Treatment Scheduled Procedures Name Priority Associated Diagnoses Date/Ti me COLONOSCOPY Encounter for screening for colorectal cancer in high risk patient Family history of rectal cancer documented as of this encounter Visit Diagnoses Not on filedocumented in this encounter Care Teams Network Announcer Relationship Specialty Start Date End Date Beka Nick MD [address] [place] [address] PCP - General Family Practice 05/31/23 04/25/24 Amber Montesinos RN Travel Agency Manager Transplant 11/17/19 Jil Duncan MD Consulting Physician Infectious Diseases 01/10/20 Anita Gillespie MD Medical Oncologist/What Job Titles Mean Medical Oncology 10/07/20 Tabitha Hurley MD [address] [place] [address] Consulting Physician Rheumatology 10/22/21 Massiel Gastelum MD [address] [place] [address] Consulting Physician Otolaryngology 08/27/22 documented as of this encounter
--- OUTSIDE RECORDS SUMMARY | 2024-10-28 06:10 | XMS_ITS | Encounter Summary ---
Author Organization [facility] Address [address] [facility] [address] [place] [address] Care Team Providers Care Devops Consultant Name Role Phone Amber Montseinos RN Unavailable [phone] Jil Duncan MD Unavailable [phone] Anita Gillespie MD Unavailable [phone] Tabitha Hurley MD Unavailable [phone] Massiel Gastelum MD Unavailable [phone] Beka Nick MD Primary Care Provider [phone] Encounter Details Date Type Department Care Team (Late st Contact Info) Description 05/31/2023 9:15 AM CDT Lab [facility] Outpatient Lab at [address] [address] Chronic pansinusitis (Primary Dx) Social [...] on file 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 Gender Identity Not on file Sexual [...] sinusitis documented in this encounter Care Teams Devops Consultant Relationship Specialty Start Date End Date Beka Nick MD [address] [place] [address] PCP - General Family Practice 05/31/23 04/25/24 Amber Montesinos, SHAILESH Wrapping Clerk Transplant 11/17/19 Jil Duncan MD Consulting Physician Infectious Diseases 01/10/20 Anita Gillespie MD Medical Oncologist/Surgery Tech Medical Oncology 10/07/20 Tabitha Hurley MD [address] [place] [address] Consulting Physician Rheumatology 10/22/21 Massiel Gastelum MD [address] [place] [address] Consulting Physician Otolaryngology 08/27/22 documented as of this encounter
--- OUTSIDE RECORDS SUMMARY | 2024-10-28 06:10 | XMS_ITS | Encounter Summary ---
Author Organization [facility] Healthcare Address [address] [place] [address] Care Team Providers Care Food Cooking Machine Operator Name Role Phone Amber Montesinos RN Unavailable [phone] Jil Duncan MD Unavailable [phone] Anita Gillespie MD Unavailable [phone] Tabitha Hurley MD Unavailable [phone] Massiel Gastelum MD Unavailable [phone] Beka Nick MD Primary Care Provider [phone] Encounter Details Date Type Department Care Team (Late st Contact Info) Description 08/13/2023 Documentation [facility] Transplant Liver [address] [facility] [phone] [place] [address] Amber Montesinos, RN Social History Tobacco Use [...] file 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 Pool and Madelaine Martínez NP with transplant hepatology. Discussed IVIG with mom via [employer]. She states they are still waiting to get this month's dose due to ptrecently switching insurances. Plan to repeat labs 3-4 weeks after IVIG infusion to monitor LFT trend and determine next steps. Also provided mom with number via [employer] to call to set back up an aptwith allergy and immunology since this initial apt was missed. documented in this encounter Plan of Treatment Scheduled Procedures Name Priority Associated Diagnoses Date/Ti me COLONOSCOPY Encounter for screening for colorectal cancer in high risk patient Family history of rectal cancer documented as of this encounter Visit Diagnoses Not on filedocumented in this encounter Care Teams Food Cooking Machine Operator Relationship Specialty Start Date End Date Beka Nick MD [address] [place] [address] PCP - General Family Practice 05/31/23 04/25/24 Amber Montesinos, SHAILESH Vice President Of Communications Transplant 11/17/19 Jil Duncan MD Consulting Physician Infectious Diseases 01/10/20 Anita Gillespie MD Medical Oncologist/Car Loader Medical Oncology 10/07/20 Tabitha Hurley MD [address] [place] [address] Consulting Physician Rheumatology 10/22/21 Massiel Gastelum MD [address] [place] [address] Consulting Physician Otolaryngology 08/27/22 documented as of this encounter
--- OUTSIDE RECORDS SUMMARY | 2024-10-28 06:10 | XMS_ITS | Encounter Summary ---
Author Organization [facility] Healthcare Address [address] [place] [address] Care Team Providers Care Bank Accountant Name Role Phone Amber Montesinos RN Unavailable [phone] Jil Duncan MD Unavailable [phone] Anita Gillespie MD Unavailable [phone] Tabitha Hurley MD Unavailable [phone] Massiel Gastelum MD Unavailable [phone] Beka Nick MD Primary Care Provider [phone] Encounter Details Date Type Department Care Team (Late st Contact Info) Description 07/21/2023 Orders Only [facility] Health Information Management [address] [place] [address] Scanning, Provider Social History Tobacco Use Types [...] on file 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 Gender Identity Not on file Sexual Orientation Straight 08/22/2021 9: 23 AM CDT documented as of this encounter Plan of Treatment Scheduled Procedures Name Priority Associated Diagnoses Date/Ti me COLONOSCOPY Encounter for screening for colorectal cancer in high risk patient Family history of rectal cancer documented as of this encounter Procedures Procedure Name Priority Date/Time Associated Diagnosis Comments SCAN - LABS 07/21/2023 4:53 PM CDT documented in this encounter Results * SCAN - LABS (07/21/2023 4:53 PM CDT) us Provider Scanning Edited Result - Final documented in this encounter Visit Diagnoses Not on filedocumented in this encounter Care Teams Bank Accountant Relationship Specialty Start Date End Date Beka Nick MD [address] [place] [address] PCP - General Family Practice 05/31/23 04/25/24 Amber Montesinos, SHAILESH Behavioral Health Clinician Transplant 11/17/19 Jil Duncan MD Consulting Physician Infectious Diseases 01/10/20 Anita Gillespie MD Medical Oncologist/Tacker Elastic Band Medical Oncology 10/07/20 Tabitha Hurley MD [address] [place] [address] Consulting Physician Rheumatology 10/22/21 Massiel Gastelum MD [address] [place] [address] Consulting Physician Otolaryngology 08/27/22 documented as of this encounter
--- OUTSIDE RECORDS SUMMARY | 2024-10-28 06:10 | XMS_ITS | Encounter Summary ---
Author Organization [facility] Address [address] [place] [address] Phone Care Team Providers Care Managing Editor Name Role Phone Guero Colunga DO Primary Care Provider [phone] Amber Montesinos RN Unavailable [phone] Jil Duncan MD Unavailable [phone] Anita Gillespie MD Unavailable [phone] Tabitha Hurley MD Unavailable [phone] Massiel Gastelum MD Unavailable [phone] Encounter Details Date Type Department Care Team (Late st Contact Info) Description 01/14/2023 Orders Only [facility] Infectious Diseases [address] [place] [address] [address] [place] [address] Lisandra Auguste, AIDEN [address] [place] [address] 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HCC) (Primary Dx) [...] on file 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 Gender Identity Not on file Sexual Orientation Straight 08/22/2021 9: 23 AM CDT documented as of this encounter Miscellaneous Notes * Addendum Note - Ny Griffin - 01/14/2023 1:30 PM CDTAddended by: [place] GRIFFIN on: 01/28/2023 08:20 AM Modules accepted: Orders documented in this encounter Plan of Treatment Scheduled Orders Name Type Priority Associated Diagnoses Orde r Schedule CMV DNA QN, PCR Blood Microbiology Routine 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HCC) Expected: 01/14/2023, Expires: 01/15/2024 Scheduled Procedures Name Priority Associated Diagnoses Date/Ti me COLONOSCOPY Encounter for screening for colorectal cancer in high risk patient Family history of rectal cancer documented as of this encounter Visit Diagnoses Diagnosis 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 documented in this encounter Care Teams Managing Editor Relationship Specialty Start Date End Date Guero Colunga DO PCP - General Internal Medicine 03/22/19 04/18/23 Amber Montesinos RN Birdcage Assembler Transplant 11/17/19 Jil Duncan MD Consulting Physician Infectious Diseases 01/10/20 Anita Gillespie MD Medical Oncologist/Fuel Cell Systems Engineer Medical Oncology 10/07/20 Tabitha Hurley MD [address] [place] [address] Consulting Physician Rheumatology 10/22/21 Massiel Gastelum MD [address] [place] [address] Consulting Physician Otolaryngology 08/27/22 documented as of this encounter
--- OUTSIDE RECORDS SUMMARY | 2024-10-28 06:10 | XMS_ITS | Encounter Summary ---
Author Organization [facility] Healthcare Address [address] [place] [address] Care Team Providers Care Clinical Audiologist Name Role Phone Amber Montesinos RN Unavailable [phone] Jil Duncan MD Unavailable [phone] Anita Gillespie MD Unavailable [phone] Tabitha Hurley MD Unavailable [phone] Massiel Gastelum MD Unavailable Beka Nick MD Primary Care Provider [phone] Encounter Details Date Type Department Care Team (Late st Contact Info) Description 07/20/2023 Telephone [facility] Transplant Liver [address] [facility] [phone] [place], [place] [id number] Amber Montesinos, RN Social History Tobacco Use [...] on file 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 documented in this encounter Plan of Treatment Scheduled Procedures Name Priority Associated Diagnoses Date/Ti me COLONOSCOPY Encounter for screening for colorectal cancer in high risk patient Family history of rectal cancer documented as of this encounter Visit Diagnoses Not on filedocumented in this encounter Care Teams Clinical Audiologist Relationship Specialty Start Date End Date Beka Nick MD [address] [place] [address] PCP - General Family Practice 05/31/23 04/25/24 Amber Montesinos RN Development Technician Transplant 11/17/19 Jil Duncan MD Consulting Physician Infectious Diseases 01/10/20 Anita Gillespie MD Medical Oncologist/Global Analytics Head Medical Oncology 10/07/20 Tabitha Hurley MD [address] [place] [address] Consulting Physician Rheumatology 10/22/21 Massiel Gastelum MD [address] [place] [address] Consulting Physician Otolaryngology 08/27/22 documented as of this encounter
--- OUTSIDE RECORDS SUMMARY | 2024-10-28 06:10 | XMS_ITS | Encounter Summary ---
Author Organization [facility] Address [address] [place] [address] Phone Care Team Providers Care Dull Coat Mill Operator Name Role Phone Amber Montesinos RN Unavailable [phone] Jil Duncan MD Unavailable [phone] Anita Gillespie MD Unavailable [phone] Tabitha Hurley MD Unavailable [phone] Massiel Gastelum MD Unavailable [phone] Encounter Details Date Type Department Care Team (Late st Contact Info) Description 05/12/2023 Orders Only [facility] ENT [address] [facility] 11th [place] [address] [place] [address] Massiel Gastelum MD [address] [place] [address] Social History Tobacco Use Types Packs/Day Years [...] on file 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 documented in this encounter Plan of Treatment Scheduled Procedures Name Priority Associated Diagnoses Date/Ti me COLONOSCOPY Encounter for screening for colorectal cancer in high risk patient Family history of rectal cancer documented as of this encounter Visit Diagnoses Not on filedocumented in this encounter Care Teams Dull Coat Mill Operator Relationship Specialty Start Date End Date Amber Montesinos RN Stack Attendant Transplant 11/17/19 Jil Duncan MD Consulting Physician Infectious Diseases 01/10/20 Anita Gillespie MD Medical Oncologist/Stock House Worker Medical Oncology 10/07/20 Tabitha Hurley MD [address] [place] [address] Consulting Physician Rheumatology 10/22/21 Massiel Gastelum MD [address] [place] [address] Consulting Physician Otolaryngology 08/27/22 documented as of this encounter
--- OUTSIDE RECORDS SUMMARY | 2024-10-28 06:10 | XMS_ITS | Encounter Summary ---
Author Organization [facility] Healthcare Address [address] [place] [address] Care Team Providers Care Pharmacists Name Role Phone Amber Montesinos RN Unavailable [phone] Jil Duncan MD Unavailable [phone] Anita Gillespie MD Unavailable [phone] Tabitha Hurley MD Unavailable [phone] Massiel Gastelum MD Unavailable Beka Nick MD Primary Care Provider [phone] Encounter Details Date Type Department Care Team (Late st Contact Info) Description 06/09/2023 Documentation [facility] Transplant Liver [address] [facility] [phone] [place] [address] Amber Montesinos, RN Social History Tobacco Use [...] on file 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 Per chart review, patient due to repeat CMV PCR next week for ID. Will send Ice[employer]aker message to pt to see if he is able to repeat our SO as well. documented in this encounter Plan of Treatment Scheduled Procedures Name Priority Associated Diagnoses Date/Ti me COLONOSCOPY Encounter for screening for colorectal cancer in high risk patient Family history of rectal cancer documented as of this encounter Visit Diagnoses Not on filedocumented in this encounter Care Teams Pharmacists Relationship Specialty Start Date End Date Beka Nick MD [address] [place] [address] PCP - General Family Practice 05/31/23 04/25/24 Amber Montesinos, SHAILESH Refueling Rampman Transplant 11/17/19 Jil Duncan MD Consulting Physician Infectious Diseases 01/10/20 Anita Gillespie MD Medical Oncologist/Oil Field Rig Builder Medical Oncology 10/07/20 Tabitha Hurley MD [address] [place] [address] Consulting Physician Rheumatology 10/22/21 Massiel Gastelum MD [address] [place] [address] Consulting Physician Otolaryngology 08/27/22 documented as of this encounter
--- OUTSIDE RECORDS SUMMARY | 2024-10-28 06:10 | XMS_ITS | Encounter Summary ---
Author Organization [facility] Address [address] [place] [address] Phone Care Team Providers Care Patient Advocate Name Role Phone Guero Colunga DO Primary Care Provider [phone] Amber Montesinos RN Unavailable [phone] Jil Duncan MD Unavailable [phone] Anita Gillespie MD Unavailable [phone] Tabitha Hurley MD Unavailable [phone] Massiel Gastelum MD Unavailable [phone] Encounter Details Date Type Department Care Team (Latest Contact Info) Description 02/08/2023 11:00 AM CDT Telemedicine [facility] Infectious Diseases [address] [place] [address] [address] [place] [address] Lisandra Auguste, AIDEN [address] [place] [address] 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HCC) [...] on file 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 He was also noted to have lymphadenopathy [...] levels starting 06/20/22. He was admitted to [facility] 07/09-07/12/22 due to persistent CMV viremia while on marabovir along with 2 week history of cough, fevers, chills, fatigue/malaise. RVP positive for rhinovirus and adenovirus. CMV resistance testing obtained which showed resistance to maribavir. This was discontinued on 07/16/23and he was restarted on Valcyte 900 mg PO BID. CMV levels at OSH on 11/14/22 were [address]. Reached out to patient and it seemed he had been off Valcyte. Restarted therapy that day. He was admitted to [facility] 07/09-07/12/22 due to persistent CMV viremia while on marabovir along with 2 week history of cough, fevers, chills, fatigue/malaise. RVP positive for rhinovirus and adenovirus. CMV resistance testing obtained which showed resistance to maribavir. This was discontinued on 07/16/23and he was restarted on Valcyte 900 mg PO BID. Interval History: Telephone visit completed with patient today. Labs from 01/29/23 at OSH show CMV PCR 16,072. He reports feeling well and he has no complaints today. Reports missing Valcyte doses rarely, maybe once ortwice a month. He denies any fevers, chills, night sweats, nausea, vomiting, diarrhea, or vision changes. He has had difficulty getting labs as scheduled but now has a new job and is off on Fridays. He will go to [facility] lab in [place] on Wednesday for lab draw. ROS: Review of Systems Constitutional: Negative for activity change, appetite change, chills, diaphoresis, fatigue, fever and unexpected weight change. Eyes: Negative for visual disturbance. Gastrointestinal: Negative for abdominal pain, diarrhea, nausea and vomiting. Musculoskeletal: [...] Immunocompromised patient (HCC) Community acquired pneumonia Lymphadenopathy halfway current use of immunosuppressive drug 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HCC) Fever Elevated LFTs On antiviral therapy Myalgia Muscle weakness Chronic pansinusitis Immunocompromised (HCC) Subcutaneous nodule of right lower extremity Allergies: Patient has no known allergies. HOME MEDICATIONS : tacrolimus (PROGRAF) 0.5 mg immediate-release capsule ursodioL (ACTIGALL) 300 mg capsule acetaminophen (TYLENOL) 500 mg tablet budesonide (PULMICORT) 0.5 mg/2 mL nebulizer solution traZODone (DESYREL) 50 mg tablet valGANciclovir (VALCYTE) 450 mg tablet Lab/Microbiology/Radiology/Diagnostic Review: Laboratory: Lab Results Component Value Date WBC 7.2 12/30/2022 HGB 14.9 12/30/2022 HCT 41.5 12/30/2022 MCV 102.6 (H) 12/30/2022 LABPLAT 196 12/30/2022 Lab Results Component Value Date GLUCOSE 95 12/30/2022 CALCIUM 8.9 12/30/2022 SODIUM 142 12/30/2022 POTASSIUM 4.4 12/30/2022 CO2 25 12/30/2022 CHLORIDE 110 12/30/2022 BUNSER 7 (L) 12/30/2022 CREATININE 0.74 01/29/2023 Lab Results Component Value Date ALT 45 12/30/2022 AST 67 (H) 12/30/2022 ALKPHOS 315 (H) 12/30/2022 BILITOT 1.5 (H) 12/30/2022 Assessment/Plan 28 y.o. 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 Has been on multiple different therapies including PO valganciclovir, PO letermovir, IV ganciclovir, and PO maribavir. Now on valcyte 900 mg PO BID with continued CMV viremia. 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HCC) - Patient reports feeling well without any acute complaints today. He remains on valganciclovir 900mg PO BID but unfortunately has worsening CMV [...] CMP. He will get these drawn on Wednesday.If CMV level continues to rise he will [...] CMV under control we will investigate other op tions including virus-specific T-cell therapy that is being performed in [place] through clinical trial as he seems to be a good candidate for this. Follow up: - Return in about 2 months (around 04/10/2023). Visit Diagnosis: 1. 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HCC) Lisandra Ramirez the Nurse Practitioner, have reviewed and examined this patient with thesupervising present in the office suite, Dr. Duncan. This was a telemedicine visit with Beka howell which took place via telephone . During thevisit, I was located in the office and the patient was located at home in the [facility]. The patient visit started at 1109 and ended at 1120. My total encounter time on 02/08/2023 was 25 minutes which was spent in the activities documented in the note. This includes time spent prior to the visit and after the visit in direct care of the patient. This time does not include time spent in any separately reportable services. The patient: has been informed that the visit may not be secure and acknowledged the information. The option of participating in a telephone or video visit during the [facility] public health emergencywas explained to them. After being given an opportunity to ask questions about and discuss this type of visit, they verbally consented to proceeding with the telephone/video visit and understand thatthis service replaces an office visit. Cosigned by Jil Duncan MD at 02/24/2023 5:57 PM CDT documented in this encounter Miscellaneous Notes * Assessment & Plan Note - Lisandra Auguste NP - 02/09/2023 2:14 PM CDT Associated Problem(s): 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HCC) - Patient reports feeling well without any acute complaints today. He remains on valganciclovir 900mg PO BID but unfortunately has worsening CMV [...] CMP. He will get these drawn on Wednesday.If CMV level continues to rise he will [...] CMV under control we will investigate other op tions including virus-specific T-cell therapy that is being performed in [place] through clinical trial as he seems to be a good candidate for this. * Addendum Note - Dea Kim. - 02/08/2023 11:00 AM CDTAddended by: DEA KIM on: 02/12/2023 08:13 AM Modules accepted: Orders * Addendum Note - Dea Kim. - 02/08/2023 11:00 AM CDTAddended by: DEA KIM on: 02/12/2023 08:15 AM Modules accepted: Orders * Addendum Note - Dea Kim. - 02/08/2023 11:00 AM CDTAddended by: DEA KIM on: 02/12/2023 08:37 AM Modules accepted: Orders * Addendum Note - Dea Kim - 02/08/2023 11:00 AM CDTAddended by: DEA KIM on: 02/12/2023 08:37 AM Modules accepted: Orders * Addendum Note - Dea Kim - 02/08/2023 11:00 AM CDTAddended by: DEA KIM on: 02/12/2023 08:38 AM Modules accepted: Orders * Addendum Note - Dea Kim - 02/08/2023 11:00 AM CDTAddended by: DEA KIM on: 02/12/2023 12:57 PM Modules accepted: Orders * Addendum Note - Dea Kim - 02/08/2023 11:00 AM CDTAddended by: DEA KIM on: 02/12/2023 12:57 PM Modules accepted: Orders * Addendum Note - Dea Kim - 02/08/2023 11:00 AM CDTAddended by: DEA KIM on: 02/12/2023 12:57 PM Modules accepted: Orders * Addendum Note - Dea Kmi - 02/08/2023 11:00 AM CDTAddended by: DEA KIM on: 02/12/2023 12:58 PM Modules accepted: Orders * Addendum Note - Noemy Kelly - 02/08/2023 11:00 AM CDTAddended by: NOEMY KELLY on: 02/12/2023 06:18 PM Modules accepted: Orders documented in this encounter Plan of Treatment Scheduled Procedures Name Priority Associated Diagnoses Date/Ti me COLONOSCOPY Encounter for screening for colorectal cancer in high risk patient Family history of rectal cancer documented as of this encounter Results * (ABNORMAL) CBC with auto differential (02/12/2023 12:58 PM CDT) WBC 7.7 3.8 - 9.9 K/cumm [facility] Hgb 14.3 13.0 - 17.5 g/dL [facility] Hct 39.7 38.9 - 50.3 % [facility] Plt 190 150 - 400 K/cumm [facility] MPV 11.3 9.1 - 12.3 fL [facility] RBC 3.99(L) 4.30 - 5.80 M/cumm [facility] MCV 99.5(H) 81.3 - 96.4 fL [facility] MCH 35.8(H) 27.1 - 33.3 pg [facility] MCHC 36.0(H) 32.3 - 35.7 g/dL [facility] CH RDW CV 16.9(H) 11.1 - 14.9 % [facility] RDW SD 62.0(H) 35.7 - 48.1 fL [facility] NRBC abs 0.00 0.00 - 0.01 K/cumm [facility] Blood 02/12/2023 12:5 8 PM CDT 02/12/2023 6:24 PM CDT Lisandra Auguste NP LAB BLOOD ORDERABLES Chata cuadra Result [facility] [address] [address] Department of Laboratories [place] [id number] documented in this encounter Visit Diagnoses Diagnosis 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 documented in this encounter Historical Medications * This list may reflect changes made after this encounter. valGANciclovir (VALCYTE) 450 mg tablet Take 2 tablets (900 mg total) by mouth 2 (two) times a day 02/08/2023 added in this encounter Care Teams Patient Advocate Relationship Specialty Start Date End Date Guero Colunga DO PCP - General Internal Medicine 03/22/19 04/18/23 Amber Montesinos, RN Branch Service Specialist Transplant 11/17/19 Jil Duncan MD Consulting Physician Infectious Diseases 01/10/20 Anita Gillespie MD Medical Oncologist/Electrical Systems Engineer Medical Oncology 10/07/20 Tabitha Hurley MD [address] [facility] [address] [place] [address] Consulting Physician Rheumatology 10/22/21 Massiel Gastelum MD [address] [place] [address] Consulting Physician Otolaryngology 08/27/22 documented as of this encounter
--- OUTSIDE RECORDS SUMMARY | 2024-10-28 06:10 | XMS_ITS | Encounter Summary ---
Author Organization [facility] Address [address] [place] [address] Phone Care Team Providers Care Hydrochloric Manufacturing Supervisor Name Role Phone Amber Montesinos RN Unavailable [phone] Jil Duncan MD Unavailable [phone] Anita Gillespie MD Unavailable [phone] Tabitha Hurley MD Unavailable [phone] Massiel Gastelum MD Unavailable [phone] Beka Nick MD Primary Care Provider [phone] Encounter Details Date Type Department Care Team (Late st Contact Info) Description 07/30/2023 Orders Only [facility] Oncology [address] [place] [address] Lesvia Crenshaw RN Social History Tobacco Use [...] on file 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 Gender Identity Not on file Sexual Orientation Straight 08/22/2021 9: 23 AM CDT documented as of this encounter Plan of Treatment Scheduled Procedures Name Priority Associated Diagnoses Date/Ti me COLONOSCOPY Encounter for screening for colorectal cancer in high risk patient Family history of rectal cancer documented as of this encounter Visit Diagnoses Not on filedocumented in this encounter Care Teams Hydrochloric Manufacturing Supervisor Relationship Specialty Start Date End Date Beka Nick MD [address] [place] [address] PCP - General Family Practice 05/31/23 04/25/24 Amber Montesinos, SHAILESH Counter Roller Transplant 11/17/19 Jil Duncan MD Consulting Physician Infectious Diseases 01/10/20 Anita Gillespie MD Medical Oncologist/Education Rn Medical Oncology 10/07/20 Tabitha Hurley MD [address] [place] [address] Consulting Physician Rheumatology 10/22/21 Massiel Gastelum MD [address] [place] [address] Consulting Physician Otolaryngology 08/27/22 documented as of this encounter
--- OUTSIDE RECORDS SUMMARY | 2024-10-28 06:10 | XMS_ITS | Encounter Summary ---
Author Organization [facility] Address [address] [place] [address] Phone Care Team Providers Care Chips Screen Tender Name Role Phone Amber Montesinos RN Unavailable [phone] Jil Duncan MD Unavailable [phone] Anita Gillespie MD Unavailable [phone] Tabitha Hurley MD Unavailable [phone] Massiel Gastelum MD Unavailable Beka Nick MD Primary Care Provider [phone] Encounter Details Date Type Department Care Team (Late st Contact Info) Description 06/03/2023 Telephone [facility] Infectious Diseases [address] [place] [address] [address] [place] [address] Lisandra Auguste, AIDEN [address] [place] [address] [address] [place] [address] Social History Tobacco Use Types Packs/Day Years [...] on file 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 Gender Identity Not on file Sexual Orientation Straight 08/22/2021 9: 23 AM CDT documented as of this encounter Ordered Prescriptions Prescription Sig Dispense Quantity Refills Last Filled Start Date End Date maribavir (LIVTENCITY) 200 mg tablet Take 2 tablets (400 mg total) by mouth 2 (two) times a day 120 tablet 5 06/03/2023 3 maribavir (LIVTENCITY) 200 mg tablet Take 2 tablets (400 mg total) by mouth 2 (two) times a day 28 tablet 06/03/2023 3 documented in this encounter Miscellaneous Notes * Telephone Encounter - Lisandra Auguste NP - 06/04/2023 1:33 PM CDT Opened in error documented in this encounter Plan of Treatment [...] mouth 2 (two) times a day Reorder 06/02/2023 06/03/2023 documented as of this encounter Care Teams Chips Screen Tender Relationship Specialty Start Date End Date Beka Nick MD [address] [place] [address] PCP - General Family Practice 05/31/23 04/25/24 Amber Montesinos, SHAILESH Remote Ruby On Rails Developer Transplant 11/17/19 Jil Duncan MD Consulting Physician Infectious Diseases 01/10/20 Anita Gillespie MD Medical Oncologist/Answering Service Agent Medical Oncology 10/07/20 Tabitha Hurley MD [address] [facility] [address] [place], [place] [address] Consulting Physician Rheumatology 10/22/21 Massiel Gastelum MD [address] [place] [address] Consulting Physician Otolaryngology 08/27/22 documented as of this encounter
--- OUTSIDE RECORDS SUMMARY | 2024-10-28 06:10 | XMS_ITS | Encounter Summary ---
Author Organization [facility] Address [address] [place] [address] Phone Care Team Providers Care Bar Host/Hostess Name Role Phone Guero Colunga DO Primary Care Provider [phone] Amber Montesinos RN Unavailable [phone] Jil Duncan MD Unavailable [phone] Anita Gillespie MD Unavailable [phone] Tabitha Hurley MD Unavailable [phone] Massiel Gastelum MD Unavailable [phone] Reason for Visit * Reason Onset Date Comments Appointment 12/31/2022 Encounter Details Date Type Department Care Team (Late st Contact Info) Description 12/31/2022 Telephone [facility] Infectious Diseases [address] [place] [address] Ny Griffin Appointment Social History Tobacco Use Types Packs/Day [...] on file 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 You will have to create a slot as as she does not normally see patients then. I will reach out to the patient and let them know. Ny UNDER documented in this encounter Plan of Treatment Scheduled Procedures Name Priority Associated Diagnoses Date/Ti me COLONOSCOPY Encounter for screening for colorectal cancer in high risk patient Family history of rectal cancer documented as of this encounter Visit Diagnoses Not on filedocumented in this encounter Care Teams Bar Host/Hostess Relationship Specialty Start Date End Date Guero Colunga DO PCP - General Internal Medicine 03/22/19 04/18/23 Amber Montesinos RN Hand Lacer Transplant 11/17/19 Jil Duncan MD Consulting Physician Infectious Diseases 01/10/20 Anita Gillespie MD Medical Oncologist/Dining Room Helper Medical Oncology 10/07/20 Tabitha Hurley MD [address] [place] [address] Consulting Physician Rheumatology 10/22/21 Massiel Gastelum MD [address] [place] [address] Consulting Physician Otolaryngology 08/27/22 documented as of this encounter
--- OUTSIDE RECORDS SUMMARY | 2024-10-28 06:10 | XMS_ITS | Encounter Summary ---
Author Organization [facility] Address [address] [place] [address] Phone Care Team Providers Care Sharepoint Engineer Name Role Phone Cristine Guero ZEPEDA Primary Care Provider [phone] Amber Montesinos RN Unavailable [phone] Jil Duncan MD Unavailable [phone] Anita Gillespie MD Unavailable [phone] Tabitha Hurley MD Unavailable [phone] Massiel Gastelum MD Unavailable [phone] Encounter Details Date Type Department Care Team (Late st Contact Info) Description 03/25/2023 Orders Only [facility] - 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 Gender Identity Not on file Sexual Orientation Straight 08/22/2021 9: 23 AM CDT documented as of this encounter Ordered Prescriptions Prescription Sig Dispense Quantity Refills Last Filled Start Date End Date amoxicillin-clavul anate (AUGMENTIN) 875-125 mg per tabletIndications: Upper Respiratory/HEENT Infection Take 1 tablet by mouth 2 (two) times a day for 21 days 42 tablet 03/25/2023 04/15/2023 documented in this encounter Plan of Treatment Scheduled Procedures Name Priority Associated Diagnoses Date/Ti me COLONOSCOPY Encounter for screening for colorectal cancer in high risk patient Family history of rectal cancer documented as of this encounter Visit Diagnoses Diagnosis Chronic pansinusitis- Primary Other chronic sinusitis documented in this encounter Care Teams Sharepoint Engineer Relationship Specialty Start Date End Date Guero Colunga DO PCP - General Internal Medicine 03/22/19 04/18/23 Amber Montesinos, SHAILESH Loss Prevention Analyst Transplant 11/17/19 Jil Duncan MD Consulting Physician Infectious Diseases 01/10/20 Anita Gillespie MD Medical Oncologist/Freight Forwarder Medical Oncology 10/07/20 Tabitha Hurley MD [address] [facility] [address] [place] [address] Consulting Physician Rheumatology 10/22/21 Massiel Gastelum MD [address] [place] [address] Consulting Physician Otolaryngology 08/27/22 documented as of this encounter
--- OUTSIDE RECORDS SUMMARY | 2024-10-28 06:10 | XMS_ITS | Encounter Summary ---
Author Organization [facility] Healthcare Address [address] [place] [address] Care Team Providers Care Hand Cutter Name Role Phone Amber Montesinos RN Unavailable [phone] Jil Duncan MD Unavailable [phone] Anita Gillespie MD Unavailable [phone] Tabitha Hurley MD Unavailable [phone] Massiel Gastelum MD Unavailable [phone] Beka Nick MD Primary Care Provider [phone] Reason for Referral * Diagnostic Imaging (Routine) - Closed Specialty Diagnoses / Procedures Referred By Contac t Referred To Contact Diagnoses History of liver transplant (CMS/HCC) (HCC) Elevated bilirubin LFT elevation Procedures US Liver Transplant with Doppler (C) David Pool MD [address] [facility] [address] [place] [address] Phone: tel: fax: [address] [address] Referral ID Status Reason Start Date Expiration Date Visits Re quested Visits Authorized [id number] Closed 07/26/2023 10/31/2023 1 1 Encounter Details Date Type Department Care Team (Late st Contact Info) Description 07/26/2023 Telephone [facility] Transplant Liver [address] [facility] [address] Mailstop [id number] [place] [address] Amber Montesinos RN Social History Tobacco Use Types Packs/Day [...] on file 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 Gender Identity Not on file Sexual Orientation Straight 08/22/2021 9: 23 AM CDT documented as of this encounter Ordered Prescriptions Prescription Sig Dispense Quantity Refills Last Filled Start Date End Date ursodioL (ACTIGALL) 300 mg capsuleIndications :Cholelithiasis Prevention Take 2 capsules (600 mg total) by mouth daily with dinner 180 capsule 3 07/27/2023 4 documented in this encounter Miscellaneous Notes * Telephone Encounter - Karen Kumar - 07/28/2023 10:44 AM CDT Per Jabari Story No Precert required for CPT Code 70050- [address]9515 Ref# [id number] Carlos Ref# [id number] * Telephone Encounter - Amber Vargas RN - 07/26/2023 1:08 PM CDT Are there any changes to insurance? If there is a change, please indicate the new insurance details below. If it is unchanged to what is already in Epic, simply warren each with N/A Primary Insurance: Jez [id number] Group#: [id number] Insurance Phone#: Secondary Insurance is [place]:[id number] Radiology Test Request Details Need pre-cert for: US Liver Transplant with Doppler (C) Ordering physician: David Pool CPT Code: 76705_93975 CPT Code description: US Liver Transplant with Doppler (C) ICD-10 Code: R17, R79.89, Z94.4 ICD-10 Code description: History of liver transplant (CMS/HCC) (HCC) (Z94.4) Elevated bilirubin (R17) LFT elevation (R79.89) Patient is having test due to: s/p liver transplant with elevated bilirubin Complications patient is having: elevated bilirubin/liver enzymes Testing is to rule out the following: biliary obstruction/stricture When Scheduling, Obtain the following - What facility will test be done at: [facility] Facility's NPI: Facility's Tax ID: Facility's Address: Date(s) of test: 08/07/23 documented in this encounter Plan of Treatment Scheduled Procedures Name Priority Associated Diagnoses Date/Ti me COLONOSCOPY Encounter for screening for colorectal cancer in high risk patient Family history of rectal cancer documented as of this encounter Results * US Liver Transplant [...] it. Electronically signed by: Roland Ogden M.D. David Pool MD [facility] [place] Final Result documented in this encounter Visit Diagnoses Diagnosis History of liver transplant (CMS/HCC) (HCC)- Primary Liver replaced by transplant Elevated bilirubin LFT elevation History of liver transplant (CMS/HCC) (HCC) Liver replaced by transplant Elevated bilirubin LFT elevation documented in this encounter Discontinued Medications Medication Sig Discontinue Reason Start Date End Da te ursodioL (ACTIGALL) 300 mg capsule Take 2 capsules (600 mg total) by mouth daily with dinner Reorder 12/31/2022 07/27/2023 documented as of this encounter Care Teams Hand Cutter Relationship Specialty Start Date End Date Beka Nick MD [address] [place] [address] PCP - General Family Practice 05/31/23 04/25/24 Amber Montesinos, SHAILESH Manager Of Revenue Transplant 11/17/19 Jil Duncan MD Consulting Physician Infectious Diseases 01/10/20 Anita Gillespie MD Medical Oncologist/Manager Appointment Medical Oncology 10/07/20 Tabitha Hurley MD [address] [place] [address] Consulting Physician Rheumatology 10/22/21 Massiel Gastelum MD [address] [place] [address] Consulting Physician Otolaryngology 08/27/22 documented as of this encounter
--- OUTSIDE RECORDS SUMMARY | 2024-10-28 06:10 | XMS_ITS | Encounter Summary ---
Author Organization [facility] Healthcare Address [address] [place] [address] Care Team Providers Care Horse Racing Manager Name Role Phone Guero Colunga Primary Care Provider [phone] Amber Montesinos RN Unavailable [phone] Jil Duncan MD Unavailable [phone] Anita Gillespie MD Unavailable [phone] Tabitha Hurley MD Unavailable [phone] Massiel Gastelum MD Unavailable [phone] Encounter Details Date Type Department Care Team (Late st Contact Info) Description 02/23/2023 Telephone [facility] Specialty Services [address] [place] [address] Tosha Mccain RN Social History Tobacco Use Types Packs/Day [...] on file 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 Pt previously had scope completed by MD Lucero. Chart routed Dominic Winchester RN to review and schedule pt. documented in this encounter Plan of Treatment Scheduled Procedures Name Priority Associated Diagnoses Date/Ti me COLONOSCOPY Encounter for screening for colorectal cancer in high risk patient Family history of rectal cancer documented as of this encounter Visit Diagnoses Not on filedocumented in this encounter Care Teams Horse Racing Manager Relationship Specialty Start Date End Date Guero Colunga DO PCP - General Internal Medicine 03/22/19 04/18/23 Amber Montesinos, RN Store Operations Specialist Transplant 11/17/19 Jil Duncan MD Consulting Physician Infectious Diseases 01/10/20 nAita Gillespie MD Medical Oncologist/Senior Structural Engineer Medical Oncology 10/07/20 Tabitha Hurley MD [address] [place] [address] Consulting Physician Rheumatology 10/22/21 Massiel Gastelum MD [address] [place] [address] Consulting Physician Otolaryngology 08/27/22 documented as of this encounter
--- OUTSIDE RECORDS SUMMARY | 2024-10-28 06:10 | XMS_ITS | Encounter Summary ---
Author Organization [facility] Healthcare Address [address] [place] [address] Care Team Providers Care Bar Machine Operator Production Name Role Phone Amber Montesinos RN Unavailable [phone] Jil Duncan MD Unavailable [phone] Anita Gillespie MD Unavailable [phone] Tabitha Hurley MD Unavailable [phone] Massiel Gastelum MD Unavailable Beka Nick MD Primary Care Provider [phone] Encounter Details Date Type Department Care Team (Late st Contact Info) Description 06/04/2023 Telephone [facility] Transplant Liver [address] [facility] [address] [phone] [place], [place] [id number] Amber Montesinos, RN Social History Tobacco Use [...] on file 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 Pt went to outpatient lab in [place] today but labs are interfacing for 11/01/22. He will look into issue and call coordinator back. documented in this encounter Plan of Treatment Scheduled Procedures Name Priority Associated Diagnoses Date/Ti me COLONOSCOPY Encounter for screening for colorectal cancer in high risk patient Family history of rectal cancer documented as of this encounter Visit Diagnoses Not on filedocumented in this encounter Care Teams Bar Machine Operator Production Relationship Specialty Start Date End Date Beka Nick MD [address] [place] [address] PCP - General Family Practice 05/31/23 04/25/24 Amber Montesinos, SHAILESH Supervisor Brooder Farm Transplant 11/17/19 Jil Duncan MD Consulting Physician Infectious Diseases 01/10/20 Anita Gillespie MD Medical Oncologist/Fast Food Server Medical Oncology 10/07/20 Tabitha Hurley MD [address] [place] [address] Consulting Physician Rheumatology 10/22/21 Massiel Gastelum MD [address] [place] [address] Consulting Physician Otolaryngology 08/27/22 documented as of this encounter
--- OUTSIDE RECORDS SUMMARY | 2024-10-28 06:10 | XMS_ITS | Encounter Summary ---
Author Organization [facility] Address [address] [place] [address] Phone Care Team Providers Care General Counsel Name Role Phone Amber Montesinos RN Unavailable [phone] Jil Duncan MD Unavailable [phone] Anita Gillespie MD Unavailable [phone] Tabitha Hurley MD Unavailable [phone] Massiel Gastelum MD Unavailable [phone] Beka Nick MD Primary Care Provider [phone] Encounter Details Date Type Department Care Team (Late st Contact Info) Description 08/20/2023 Telephone [facility] Oncology [facility] Advanced Medicine 7th [place] [address] [place] [address] Yulisa Bhakta, SHAILESH Social History [...] on file 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 Will look Wednesday for results and get sent for IVIG auth. documented in this encounter Plan of Treatment Scheduled Procedures Name Priority Associated Diagnoses Date/Ti me COLONOSCOPY Encounter for screening for colorectal cancer in high risk patient Family history of rectal cancer documented as of this encounter Visit Diagnoses Not on filedocumented in this encounter Care Teams General Counsel Relationship Specialty Start Date End Date Beka Nick MD [address] [place] [address] PCP - General Family Practice 05/31/23 04/25/24 Amber Montesinos, SHAILESH Medical Receptionist Transplant 11/17/19 Jil Duncan MD Consulting Physician Infectious Diseases 01/10/20 Anita Gillespie MD Medical Oncologist/Magnetic Grinder Operator Medical Oncology 10/07/20 Tabitha Hurley MD [address] [place] [address] Consulting Physician Rheumatology 10/22/21 Massiel Gastelum MD [address] [place] [address] Consulting Physician Otolaryngology 08/27/22 documented as of this encounter
--- OUTSIDE RECORDS SUMMARY | 2024-10-28 06:10 | XMS_ITS | Encounter Summary ---
Author Organization [facility] Address [address] [place] [address] Phone Care Team Providers Care Mixer Attendant Name Role Phone Guero Colunga DO Primary Care Provider [phone] Amber Montesinos RN Unavailable [phone] Jil Duncan MD Unavailable [phone] Anita Gillespie MD Unavailable [phone] Tabitha Hurley MD Unavailable [phone] Massiel Gastelum MD Unavailable [phone] Encounter Details Date Type Department Care Team (Late st Contact Info) Description 12/30/2022 7:00 AM FLORAL DESIGNER SALESPERSON Lab 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 Gender Identity Not on file Sexual Orientation [...] rst Ordered Date ONCBCN LAB APPOINTMENT 1 12/30/2022 documented in this encounter Care Teams Mixer Attendant Relationship Specialty Start Date End Date Guero Colunga DO PCP - General Internal Medicine 03/22/19 04/18/23 Amber Montesinos RN Wastewater Treatment Plant Instructor Transplant 11/17/19 Jil Duncan MD Consulting Physician Infectious Diseases 01/10/20 Anita Gillespie MD Medical Oncologist/Hide Buffer Medical Oncology 10/07/20 Tabitha Hurley MD [address] [place] [address] Consulting Physician Rheumatology 10/22/21 Massiel Gastelum MD [address] [place] [address] Consulting Physician Otolaryngology 08/27/22 documented as of this encounter
--- OUTSIDE RECORDS SUMMARY | 2024-10-28 06:10 | XMS_ITS | Encounter Summary ---
Author Organization [facility] Address [address] [place] [address] Phone Care Team Providers Care Traveling Nurse Name Role Phone Guero Colunga DO Primary Care Provider [phone] Ambre Montesinos RN Unavailable [phone] Jil Duncan MD Unavailable [phone] Anita Gillespie MD Unavailable [phone] Tabitha Hurley MD Unavailable [phone] Massiel Gastelum MD Unavailable [phone] Encounter Details Date Type Department Care Team (Late st Contact Info) Description 02/15/2023 Orders Only [facility] Infectious Diseases [address] [place] [address] [address] [place] [address] Lisandra Auguste, AIDEN [address] [place] [address] Cytomegalovirus infection, unspecified cytomegaloviral infection type (HCC) [...] file 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 - 02/15/2023 8:54 AM CDTAddended by: DEA LORENZO on: 03/19/2023 11:50 AM Modules accepted: Orders documented in this encounter Plan of Treatment Scheduled Procedures Name Priority Associated Diagnoses Date/Ti me COLONOSCOPY Encounter for screening for colorectal cancer in high risk patient Family history of rectal cancer documented as of this encounter Results * (ABNORMAL) Cytomegalovirus (CMV) DNA PCR, quantitative Blood (03/19/2023 10:04 AM CDT) CMV DNA Detected( A) [facility] Comment: Interpretive Data: The quantifiable range of this assay is 34 IUnits/mL to 10,000,000 IUnits/mL (1.53 log IUnits/mL to 7.0 log IUnits/mL). Testing was performed by the NIA 6800 CMV Test ([employer] Testing performed at [facility]. Current interpretive data was last revised on 2021. Testing performed by: [facility], [address] [facility] [place]., [address] CMV DNA IU/mL 2,300 IUnits/mL [facility] Comment:Testing performed by : [facility], [address] [place]., [address] CMV DNA log IU/mL 3.36 log IUnits/mL [facility] Comment:Testing performed by : [facility], [address] [place]., [address] Blood 03/19/2023 10:0 4 AM CDT 03/19/2023 11:17 PM CDT Lisandra Auguste RFID ENGINEER LAB MICROBIOLOGY - GENERA L ORDERABLES Final Result [facility] [address] [place] [address] documented in this encounter Visit Diagnoses Diagnosis Cytomegalovirus infection, unspecified cytomegaloviral infection type (HCC)- Primary documented in this encounter Care Teams Traveling Nurse Relationship Specialty Start Date End Date Guero Colunga DO PCP - General Internal Medicine 03/22/19 04/18/23 Amber Montesinos RN Welder Fitter Transplant 11/17/19 Jil Duncan MD Consulting Physician Infectious Diseases 01/10/20 Anita Gillespie MD Medical Oncologist/Overhead Worker Medical Oncology 10/07/20 Tabitha Hurley MD [address] [place] [address] Consulting Physician Rheumatology 10/22/21 Massiel Gastelum MD [address] [place] [address] Consulting Physician Otolaryngology 08/27/22 documented as of this encounter
--- OUTSIDE RECORDS SUMMARY | 2024-10-28 06:10 | XMS_ITS | Encounter Summary ---
Author Organization [facility] Address [address] [place] [address] Phone Care Team Providers Care Carpenter Railcar Name Role Phone Amber Montesinos RN Unavailable [phone] Jil Duncan MD Unavailable [phone] Anita Gillespie MD Unavailable [phone] Tabitha Hurley MD Unavailable [phone] Massiel Gastelum MD Unavailable [phone] Beka Nick MD Primary Care Provider [phone] Reason for Visit * Reason Comments chronic pansinusitis Ear Pressure Encounter Details Date Type Department Care Team (Latest Contact Info) Description 05/31/2023 2:00 PM CDT Office Visit [facility] ENT [address] 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 male. Chief Complaint: Chief Complaint Patient presents with chronic pansinusitis Ear Pressure HPI: Beka Nichols is a 28 y.o. 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 At the time of surgery, he was noted to have generalized edematous and friable mucosa throughout his sinuses. Septum deviated to the left, narrowing access to the middle meatus. Left middle turbinateresected. He was last seen 04/19/2023. Treated with prednisone 40 mg taper. He was unable to tolerate the saline irrigation due to ear pain and pressure. Treated with Levaquin in early May with improvement inthick nasal mucus, hearing improved (still feels somewhat clogged, pops frequently). Treated with Augmentin 3 wks in late March with residual sx. Nasal and ear sx improved after Levaquin. Currently - saline irrigation with budesonide, runs clear or with occ thick mucus. Rare nasal stuffiness - improved breathing overall. Ear stuffiness much worse prior to Levaquin. Currently intemrittently muffling. Ears pop frequently. No notable sense of smell - baseline. He is followed by Dr. Gillespie in Medical Oncology and by Dr. Duncan in Infectious Disease. Objective Wt 61.2 kg (135 lb) BMI 20.70 kg/m?? Physical Exam GENERAL: Well-developed, well-nourished. Voice [...] clear. TM intact with myringosclerosis, middle ear scant effusion. Left: EAC clear. TM intact with myringosclerosis. Middle ear scant effusion. NOSE: External nose has no skin lesions. Nasal mucosa is moist. Septum is predominantly midline caudally. See endoscopy. NECK: No masses. HEME/LYMPHATIC: No cervical lymphadenopathy. MUSCULOSKELETAL: Ambulates without difficulty. Neck full range of motion. RESPIRATORY: Breathing comfortably without audible stridor, stertor or wheeze. Procedure: Nasal Endoscopy: Due to inadequate visualization on anterior rhinoscopy, rigid nasal endoscopy was undertaken. After topical nasal decongestant and anesthetic, the rigid nasal endoscope was introduced into the right and left nasal cavity. Nasal mucosa edema much improved, some clear/white thick mucus on right, suctioned clear with Zaina tip suction. No pus. Left synechiae between the septum andinferior turbinate, not obstructive. Maxillary antrostomies patent bilaterally, no significant edema of the mucosa. No significant edematous mucosa along the skull base, no obvious polyps. The endoscope was removed and the patient tolerated the procedure well. Procedure Note: Myringotomy with tympanostomy tube insertion under local (CPT 01579) Indications: Chronic Otitis Media with Effusion, Eustacian tube dysfunction Anesthesia: Topical Phenol Location: bilateral (Left placed, right attempted) Technique: The procedure location was confirmed with the patient. The patient was placed supine in the exam chair. After topical anesthesia of the tympanic membrane was confirmed, a myringotomy was created in the anterior/inferior quadrant of the tympanic membrane. Any effusion present was suctioned from the middle ear with a zaina tip suction. A collar button tube was placed with difficulty on the left and unable to be placed on the right. The patient tolerated the procedure well. Findings:thickened TM bilaterally with myringosclerosis, edema of ME mucosa, scant mucoid effusion Condition: Stable. Patient tolerated procedure well. Assessment/Plan 1. Immunocompromised (HCC) 2. Chronic pansinusitis 3. Chronic otitis media of both ears with effusion 4. Eustachian tube dysfunction, bilateral Continue saline nasal irrigation daily with budesonide via Navage. Ideally, he will be able to use the saline sinus rinse in the future. Floxin gtt to left and right ear x 1 week . Follow-up 6-8 weeks. Consider ear tube placement in OR, should he continue to have ear fullness andpressure on right or if early tube extrusion on left. Michael Gastelum MD FACS Professor Department of Otolaryngology [facility] documented in this encounter Plan of Treatment Scheduled Procedures Name Priority Associated Diagnoses Date/Ti mi COLONOSCOPY Encounter for screening for colorectal cancer in high risk patient Family history of rectal cancer documented as of this encounter Visit Diagnoses Diagnosis Immunocompromised (HCC)- Primary Unspecified immunity deficiency Chronic pansinusitis Other chronic sinusitis Chronic otitis media of both ears with effusion Eustachian tube dysfunction, bilateral documented in this encounter Discontinued Medications Medication Sig Discontinue Reason Start Date End Da te predniSONE (DELTASONE) 10 mg tablet 40 mg for 3 days, 30 mg for 3 days, 20 mg for 3 days 10 mg for 3 days Therapy completed 04/19/2023 05/31/2023 documented as of this encounter Care Teams Carpenter Railcar Relationship Specialty Start Date End Date Beka Nick MD [address] [place] [address] PCP - General Family Practice 05/31/23 04/25/24 Amber Montesinos, SHAILESH Insurance Special Agent Transplant 11/17/19 Jil Duncan MD Consulting Physician Infectious Diseases 01/10/20 Anita Gillespie MD Medical Oncologist/Maintenance Leader Medical Oncology 10/07/20 Tabitha Hurley MD [address] [place] [address] Consulting Physician Rheumatology 10/22/21 Massiel Gastelum MD [address] [place] [address] Consulting Physician Otolaryngology 08/27/22 documented as of this encounter
--- OUTSIDE RECORDS SUMMARY | 2024-10-28 06:10 | XMS_ITS | Encounter Summary ---
Author Organization [facility] Address [address] [place] [address] Phone Care Team Providers Care Hardware Design Engineer Name Role Phone Amber Montesinos RN Unavailable [phone] Jil Duncan MD Unavailable [phone] Anita Gillespie MD Unavailable [phone] Tabitha Hurley MD Unavailable [phone] Massiel Gastelum MD Unavailable [phone] Beka Nick MD Primary Care Provider [phone] Reason for Visit * Reason Comments Follow-up Encounter Details Date Type Department Care Team (Late st Contact Info) Description 08/09/2023 10:20 AM CDT Office Visit 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 male. Chief Complaint: Chief Complaint Patient presents with Follow-up HPI: Beka Nichols is a 28 y.o. [...] Left middle turbinateresected. He was last seen 05/21/2023 He was treated with prednisone 40 mg taper in April, followed by Levaquin course in May with notable improvement in nasal symptoms. He continued to have ear stuffiness and pressure. At his last office visit in May, ear tubes were attempted-the left was able to be placed in the right was discontinued due to difficulty placing the tube and patient discomfort. Ears overall improved since he was last seen. 2d pain after tube placement. Left ear feels sloshingsensation - rare moisture or drainage. Rare tinnitus, bilateral. Nasal symptoms are stable - thick, darker mucus, more notable in the am. Uses saline spray every other day. Prior use of saline irrgation c/b ear pain. Occ nasal congestion - associated with clearingfield and dust. He did not use a mask. Uses Flonase daily. No epistaxis. No notable sense of smell - baseline. [...] into the right and left nasal cavity. Minimal nasal mucosal edema. Clear/white mucus on right, suctioned clear with Zaina tip suction. No pus. 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 Maxillary antrostomies patent bilaterally, no significant edema of the mucosa.Skull base visible, no mucopus nor observed edema. No polyps. The endoscope was removed and the patient tolerated the procedure well. Assessment/Plan 1. Chronic pansinusitis 2. Tympanostomy tube check Reassurance provided regarding the exam today. Recommend saline nasal irrigation daily via Navage. Add budesonide when sx begin to escalate. . Follow-up 6months. If aenpm-gu-bbtwxor sinusitis recurs, plan Levaquin rx. M. Bonita Gastelum MD FACS Professor Department of Otolaryngology [facility] documented in this encounter Plan of Treatment Scheduled Procedures Name Priority Associated Diagnoses Date/Ti me COLONOSCOPY Encounter for screening for colorectal cancer in high risk patient Family history of rectal cancer documented as of this encounter Visit Diagnoses Diagnosis Chronic pansinusitis- Primary Other chronic sinusitis Tympanostomy tube check Follow-up examination, following other surgery documented in this encounter Care Teams Hardware Design Engineer Relationship Specialty Start Date End Date Beka Nick MD [address] [place] [address] PCP - General Family Practice 05/31/23 04/25/24 Amber Montesinos, RN Medical Laboratory Specialist Transplant 11/17/19 Jil Duncan MD Consulting Physician Infectious Diseases 01/10/20 Anita Gillespie MD Medical Oncologist/Applications Processor Medical Oncology 10/07/20 Tabitha Hurley MD [address] [place] [address] Consulting Physician Rheumatology 10/22/21 Massiel Gastelum MD [address] [place] [address] Consulting Physician Otolaryngology 08/27/22 documented as of this encounter
--- OUTSIDE RECORDS SUMMARY | 2024-10-28 06:10 | XMS_ITS | Encounter Summary ---
Author Organization [facility] Healthcare Address [address] [place] [address] Care Team Providers Care Forest Fire Prevention Specialist Name Role Phone Amber Montesinos RN Unavailable [phone] Jil Duncan MD Unavailable [phone] Anita Gillespie MD Unavailable [phone] Tabitha Hurley MD Unavailable [phone] Massiel Gastelum MD Unavailable Beka Nick MD Primary Care Provider [phone] Encounter Details Date Type Department Care Team (Latest Contact Info) Description 04/19/2023 10:35 AM CDT - 04/19/2023 11:59 PM CDT Hospital Encounter [address] [address] Chronic pansinusitis Discharge Disposition: Discharge to home or self [...] on file 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 Do not swallow. 4 predniSONE (DELTASONE) 10 mg tablet 40 mg for 3 days, 30 mg for 3 days, 20 mg for 3 days 10 mg for 3 days 30 tablet 04/19/2023 3 tacrolimus (PROGRAF) 0.5 mg immediate-releas e [...] with dinner 180 capsule 3 12/31/2022 3 valGANciclovir (VALCYTE) 450 mg tabletIndication s:cytomegaloviru s disease Take 2 tablets (900 mg total) by mouth 2 (two) times a day 120 tablet 2 02/08/2023 3 documented as of this encounter Discharge Disposition Disposition Code Departure Means Destination Discharge to home or self care documented in this encounter Plan of Treatment Scheduled Procedures Name Priority Associated Diagnoses Date/Ti nv COLONOSCOPY Encounter for screening for colorectal cancer in high risk patient Family history of rectal cancer documented as of this encounter Procedures Procedure Name Priority Date/Time Associated Diagnosis Comments AEROBIC AND ANAEROBIC CULTURE AND GRAM STAIN Routine 04/19/2023 1:44 PM CDT Chronic pansinusitis CMV MUTATION DETECTION Routine 04/19/2023 10:35 AM CDT documented in this encounter Results * (ABNORMAL) Aerobic and anaerobic culture and gram stain Wound Sinus (04/19/2023 1:44 PM CDT) Direct Specimen Exam Stain: Rare polymorphonuclear leukocytes seen. No organisms seen. [facility] Report Final Report: Few Haemophilus influenzae , Beta lactamase negative Rare Mixed skin microorganisms. (.) [facility] Organism HAEMOPHILUS INFLUENZAE [facility] Organism MIXED SKIN MICROORGANISMS. [facility] Wound (Sinus) 04/19/2023 1:4 4 PM CDT 04/19/2023 3:49 PM CDT Narrative [facility] - 04/26/2023 10:46 AM CDT R nasal cavity Specimen received on an ESwab. Testing performed by [facility] ([phone]) Specimens submitted from normally sterile body sites [...] interpretive data was last revised on 2019. Massiel Gastelum MD LAB MICROBIOLOGY - GEN ERAL ORDERABLES Final Result [facility] Department [place] [address] * CMV mutation detection Blood (04/19/2023 10:35 AM CDT) Report Final Report: For additional result information, see attached scanned report. [facility] Blood 04/19/2023 10:3 5 AM CDT 04/20/2023 11:44 AM CDT Narrative [facility] - 04/26/2023 12:56 PM CDT Testing performed by [facility], [address] [place] [address] us Jil Duncan MD LAB MICROBIOLOGY - GENERAL ORDERABLES Final Result [facility] Department [place] [address] documented in this encounter Visit Diagnoses Diagnosis Chronic pansinusitis Other chronic sinusitis documented in this encounter Care Teams Forest Fire Prevention Specialist Relationship Specialty Start Date End Date Beka Nick MD [address] [place] [address] PCP - General Family Practice 04/19/23 04/19/23 Amber Montesinos, SHAILESH Chief Lending Officer Transplant 11/17/19 Jil Duncan MD Consulting Physician Infectious Diseases 01/10/20 Anita Gillespie MD Medical Oncologist/Student Support Counselor Medical Oncology 10/07/20 Tabitha Hurley MD [address] [place] [address] Consulting Physician Rheumatology 10/22/21 Massiel Gastelum MD [address] [place] [address] Consulting Physician Otolaryngology 08/27/22 documented as of this encounter
--- OUTSIDE RECORDS SUMMARY | 2024-10-28 06:10 | XMS_ITS | Encounter Summary ---
Author Organization [facility] Healthcare Address [address] [place] [address] Care Team Providers Care Kosher Dietary Service Supervisor Name Role Phone Guero Colunga Primary Care Provider [phone] Amber Montesinos RN Unavailable [phone] Jil Duncan MD Unavailable [phone] Anita Gillespie MD Unavailable [phone] Tabitha Hurley MD Unavailable [phone] Massiel Gastelum MD Unavailable [phone] Encounter Details Date Type Department Care Team (Late st Contact Info) Description 12/31/2022 Telephone [facility] Transplant Liver [address] [facility] [phone] [place] [address] Amber Montesinos, SHAILESH Social History Tobacco Use Types Packs/Day [...] on file 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 Gender Identity Not on file Sexual Orientation Straight 08/22/2021 9: 23 AM CDT documented as of this encounter Ordered Prescriptions Prescription Sig Dispense Quantity Refills Last Filled Start Date End Date ursodioL (ACTIGALL) 300 mg capsule Take 2 capsules (600 mg total) by mouth daily with dinner 180 capsule 3 12/31/2022 3 documented in this encounter Miscellaneous Notes * Telephone Encounter - Amber Vargas RN - 12/31/2022 11:11 AM MARINE ANIMAL TRAINER ----- Message from Beka Nichols sent at 12/31/2022 10:03 AM MARINE ANIMAL TRAINER ----- Regarding: Tacrolimus draw Contact: Tasha Ramon looks like Beka needs a refill on his Ursodiol 300 mg capsules. Can you send something over to [facility]. Thank You. NE ANIMAL TRAINER documented in this encounter Plan of Treatment [...] total) by mouth daily with dinner Reorder 10/02/2021 12/31/2022 documented as of this encounter Care Teams Kosher Dietary Service Supervisor Relationship Specialty Start Date End Date Guero Colunga DO PCP - General Internal Medicine 03/22/19 04/18/23 Amber Montesinos, SHAILESH Athletic Training Internship Transplant 11/17/19 Jil Duncan MD Consulting Physician Infectious Diseases 01/10/20 Anita Gillespie MD Medical Oncologist/Lehr Operator Medical Oncology 10/07/20 Tabitha Hurley MD [address] [facility] [address] [place], [place] [id number] Consulting Physician Rheumatology 10/22/21 Massiel Gastelum MD [address] [place] [address] Consulting Physician Otolaryngology 08/27/22 documented as of this encounter
--- OUTSIDE RECORDS SUMMARY | 2024-10-28 06:10 | XMS_ITS | Encounter Summary ---
Author Organization [facility] Address [address] [place] [address] Phone Care Team Providers Care Pulp Refiner Operator Name Role Phone Amber Montesinos RN Unavailable [phone] Jil Duncan MD Unavailable [phone] Anita Gillespie MD Unavailable [phone] Tabitha Hurley MD Unavailable [phone] Massiel Gastelum MD Unavailable Beka Nick MD Primary Care Provider [phone] Reason for Visit * Reason Comments New Patient * Diagnostic Lab (Routine) - Canceled Specialty Diagnoses / Procedures Referred By Contac t Referred To Contact Lab Diagnoses 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HCC) Procedures CMV Antiviral Resistance by NGS - Miscellaneous Test Lisandra Auguste, AIDEN [address] [place] [address] Phone: tel: fax: Referral ID Status Reason Start Date Expiration Date V isits Requested Visits Authorized [id number] Canceled 04/19/2023 05/18/2024 1 1 Encounter Details Date Type Department Care Team (Latest Contact Info) Description 04/19/2023 10:00 AM CDT Office Visit 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 Gender Identity Not on file Sexual Orientation Straight 08/22/2021 9: 23 AM CDT documented as of this encounter Last Filed Vital Signs Vital Sign Reading Time Taken Comments Blood Pressure 128/75 04/19/2023 9:52 AM CDT Pulse 79 04/19/2023 9:52 AM CDT Temperature 36.9 ??C (98.4 ??F) 04/19/2023 9:52 AM CD T Respiratory Rate - - Oxygen Saturation - - Inhaled Oxygen Concentration - - Weight 59.4 kg (131 lb) 04/19/2023 9:52 AM CDT Height 172 cm (5' 7.72 ) 04/19/2023 9:52 AM CDT Body Mass Index 20.09 04/19/2023 9:52 AM CDT documented in this encounter Progress Notes * Lisandra Auguste NP - 04/19/2023 10:00 AM CDT Infectious Diseases Return Visit Patient Name: [facility] INFECTIOUS DISEASES [address] [place] [id number] Subjective Chief complaint of CMV viremia HPI: [...] [place] [address]. He was also noted to have lymphadenopathy [...] levels starting 06/20/22. He was admitted to [facility] 07/09-07/12/22 due to persistent CMV viremia while on marabovir along with 2 week history of cough, fevers, chills, fatigue/malaise. RVP positive for rhinovirus and adenovirus. CMV resistance testing obtained which showed resistance to maribavir. This was discontinued on 07/16/23and he was restarted on Valcyte 900 mg PO BID. CMV levels at OSH on 11/14/22 were 10185. Reached out to patient and it seemed he had been off Valcyte. Restarted therapy that day. Interval History: Patient presents to ID clinic [...] node swelling. ROS: Review of Systems Constitutional: Negative for activity change, appetite change, chills, diaphoresis, fatigue, fever and unexpected weight change. HENT: Positive for sinus pressure and sinus pain. Eyes: Negative for photophobia, redness and visual disturbance. Gastrointestinal: Positive for diarrhea (intermittent). Negative for abdominal pain, nausea [...] Immunocompromised patient (HCC) Community acquired pneumonia Lymphadenopathy custodial current use of immunosuppressive drug 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HCC) Fever Elevated LFTs On antiviral therapy Myalgia Muscle weakness Chronic pansinusitis Immunocompromised (HCC) Subcutaneous nodule of right lower extremity Allergies: Patient has no known allergies. HOME MEDICATIONS : acetaminophen (TYLENOL) 500 mg tablet budesonide (PULMICORT) 0.5 mg/2 mL nebulizer solution predniSONE (DELTASONE) 10 mg tablet tacrolimus (PROGRAF) 0.5 mg immediate-release capsule traZODone (DESYREL) 50 mg tablet ursodioL (ACTIGALL) 300 mg capsule valGANciclovir (VALCYTE) 450 mg tablet Physical Exam Constitutional: General: He is not in acute distress. Appearance: Normal appearance. He is normal weight. He is not ill-appearing or toxic-appearing. HENT: Head: Normocephalic and atraumatic. Eyes: General: No scleral icterus. Conjunctiva/sclera: Conjunctivae normal. Pupils: Pupils are equal, round, and reactive to light. Cardiovascular: Heart sounds: Normal heart sounds. No murmur heard. Pulmonary: Effort: Pulmonary effort is normal. No respiratory distress. Breath sounds: Normal breath sounds. Abdominal: General: There is no distension. Palpations: Abdomen is soft. Tenderness: There is no abdominal tenderness. Lymphadenopathy: Cervical: Cervical adenopathy present. Skin: General: Skin is warm and dry. Coloration: Skin is not jaundiced or pale. Neurological: General: No focal deficit present. Mental Status: He is alert and oriented to person, place, and time. Mental status is at baseline. Gait: Gait normal. Psychiatric: Mood and Affect: Mood normal. Behavior: Behavior normal. Thought Content: Thought content normal. Judgment: Judgment normal. Lab/Microbiology/Radiology/Diagnostic Review: Laboratory: Lab Results Component Value Date WBC 6.8 04/19/2023 HGB 13.5 04/19/2023 HCT 36.4 (L) 04/19/2023 MCV 97.8 (H) 04/19/2023 LABPLAT 153 04/19/2023 Lab Results Component Value Date GLUCOSE 102 04/19/2023 CALCIUM 8.4 (L) 04/19/2023 SODIUM 140 04/19/2023 POTASSIUM 3.8 04/19/2023 CO2 24 04/19/2023 CHLORIDE 108 04/19/2023 BUNSER 6 (L) 04/19/2023 CREATININE 0.66 (L) 04/19/2023 Lab Results Component Value Date ALT 60 (H) 04/19/2023 AST 102 (H) 04/19/2023 ALKPHOS 275 (H) 04/19/2023 BILITOT 2.0 (H) 04/19/2023 Assessment/Plan 28 y.o. male with history of [...] (CMV) viremia (CMS/HCC) (HCC) - Patient reports overall feeling well. Does have some chronic cervical lymphadenopathy along with intermittent diarrhea and chronic sinus pressure but these issues are are stable. Low suspicion thatdiarrhea is related to CMV given it is [...] today and make medication changes if needed Follow up: - Return in about 4 months (around 08/19/2023). Visit Diagnosis: 1. 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HCC) Lisandra Ramirez the Nurse Practitioner, have reviewed and examined this patient with thesupervissolange QUINTANILLA present in the office suite, Dr. Duncan. This was a telemedicine visit with Beka howell which took place via telephone . During thevisit, I was located in the office and the patient was located at home in the state of [place]. The patient visit started at 1109 and ended at 1120. My total encounter time on 04/19/2023 was 25 minutes which was spent in [...] a telephone or video visit [facility] emergency[facility] explained to them. After being given an opportunity to ask questions about and discuss this type of visit, they verbally consented to proceeding with the telephone/video visit and understand thatthis service replaces an office visit. Cosigned by Jil Duncan MD at 04/21/2023 5:18 PM CDT Associated attestation - Jil Duncan MD - 04/21/2023 5:18 PM CDT I have seen and examined the patient. I agree with the findings and plan of care as documented in the resident/fellow's note. My total encounter time on 04/19/2023 was 30 minutes which was spent in the activities documented in the note. This includes time spent prior to the visit and after the visitin direct care of the patient. This time does not include time spent in any separately reportable services. 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 Will send for resistance mutations and decide further plan . Clinically well. documented in this encounter Miscellaneous Notes * Assessment & Plan Note - Lisandra Auguste NP - 04/20/2023 8:36 AM CDT Associated Problem(s): 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HCC) - Patient reports overall feeling well. Does have some chronic cervical lymphadenopathy along with intermittent diarrhea and chronic sinus pressure but these issues are are stable. Low suspicion thatdiarrhea is related to CMV given it is [...] today and make medication changes if needed documented in this encounter Plan of Treatment Scheduled Procedures Name Priority Associated Diagnoses Date/Ti me COLONOSCOPY Encounter for screening for colorectal cancer in high risk patient Family history of rectal cancer documented as of this encounter Procedures Procedure Name Priority Date/Time Associated Diagnosis Comments CYTOMEGALOVIRUS (CMV) DNA, QUANT GEN LAB Routine 04/19/2023 10:35 AM CDT 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HCC) GLUCOSE, RANDOM (OUTREACH) Routine 04/19/2023 10:35 AM CDT 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HCC) EGFR Routine 04/19/2023 10:35 AM CDT 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HCC) DIFFERENTIAL AUTO Routine 04/19/2023 10: 35 AM CDT 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HCC) COMPREHENSIVE METABOLIC PANEL WITHOUT GLUCOSE (OUTREACH) Routine 04/19/2023 10:35 AM CDT 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HCC) HC COMP METABOLIC PANEL Routine 04/19/20 10:35 AM CDT 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HCC) CBC WITH AUTO DIFFERENTIAL Routine 04/19/2023 10:35 AM CDT 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HCC) documented in this encounter Results * eGFR (04/19/2023 10:35 AM CDT) Pathologist [facility] eGFR >90 90 - 130 [...] interpretive data was last reviewed 2021. Blood 04/19/2023 10:3 5 AM CDT 04/19/2023 1:04 PM CDT us Lisandra Auguste NP LAB BLOOD ORDERABLES Chata cuadra Result [facility] Department [place] [address] * (ABNORMAL) Differential, auto (04/19/2023 10:35 AM CDT) Neutrophil abs 2.9 1.7 - 6.5 K/cumm [facility] Imm gran abs 0.0 0.0 - 0.1 K/cumm [facility] Lymphocyte abs 2.2 0.8 - 3.3 K/cumm [facility] Monocyte abs 1.5(H) 0.2 - 0.8 K/cumm [facility] Eosinophil abs 0.1 0.0 - 0.5 K/cumm [facility] Basophil abs 0.1 0.0 - 0.1 K/cumm [facility] Neutrophil pct 43.3 % [facility] Comment: Interpretive Data Percent cell count reference ranges are not reported, since discordance with absolute values may lead to misinterpretation of CBC data. Current Interpretive Data was last revised on 2018. Imm gran pct 0.1 % [facility] Comment: Interpretive Data Percent cell count reference ranges are not reported, since discordance with absolute values may lead to misinterpretation of CBC data. Current Interpretive Data was last revised on 2018. Lymphocyte pct 32.1 % [facility] Comment: Interpretive Data Percent cell count reference ranges are not reported, since discordance with absolute values may lead to misinterpretation of CBC data. Current Interpretive Data was last revised on 2018. Monocyte pct 21.4 % [facility] Comment: Interpretive Data Percent cell count reference ranges are not reported, since discordance with absolute values may lead to misinterpretation of CBC data. Current Interpretive Data was last revised on 2018. Eosinophil pct 1.5 % [facility] Comment: Interpretive Data Percent cell count reference ranges are not reported, since discordance with absolute values may lead to misinterpretation of CBC data. Current Interpretive Data was last revised on 2018. Basophil pct 1.6 % [facility] Comment: Interpretive Data Percent cell count reference ranges are not reported, since discordance with absolute values may lead to misinterpretation of CBC data. Current Interpretive Data was last revised on 2018. Blood 04/19/2023 10:3 5 AM CDT 04/19/2023 1:04 PM CDT us Lisandra Auguste MEDIA RELATIONS ASSOCIATE LAB BLOOD ORDERABLES Chata l Result Performing Organization Address [facility] [employer] Phone Number [facility] Department [place] [address] * Glucose, random (Outreach) (04/19/2023 10:35 AM CDT) Glucose 102 70 - 199 mg/dL [facility] Comment: Interpretive Data Fasting glucose >/= 126 [...] interpretive data was last revised 2022. Blood 04/19/2023 10:3 5 AM CDT 04/19/2023 1:04 PM CDT Lisandra Auguste MEDIA RELATIONS ASSOCIATE LAB BLOOD ORDERABLES Chata l Result Performing Organization Address [facility] de Phone Number [facility] Department [place] [address] * (ABNORMAL) Comprehensive metabolic panel, without glucose (Outreach) (04/19/2023 10:35 AM CDT) Sodium 140 135 - 145 mmol/L [facility] Potassium, pl 3.8 3.3 - 4.9 mmol/L [facility] Chloride 108 97 - 110 mmol/L [facility] CO2 24 22 - 32 mmol/L [facility] Anion gap 8 2 - 15 mmol/L [facility] BUN 6(L) 8 - 25 mg/dL [facility] Creatinine 0.66(L) 0.80 - 1.30 mg/dL [facility] Calcium 8.4(L) 8.5 - 10.3 mg/dL [facility] Protein, pl 5.8(L) 6.5 - 8.5 g/dL [facility] Albumin 3.2(L) 3.5 - 5.0 g/dL [facility] Bilirubin, total 2.0(H) 0.1 - 1.2 mg/dL [facility] Alk phos 275(H) 40 - 130 Units/L [facility] AST 102(H) 10 - 50 Units/L [facility] ALT 60(H) 7 - 55 Units/L [facility] Blood 04/19/2023 10:3 5 AM CDT 04/19/2023 1:04 PM CDT us Lisandra Auguste NP LAB BLOOD ORDERABLES Chata cuadra Result [facility] Department [place] [address] * (ABNORMAL) CBC with auto differential (04/19/2023 10:35 AM CDT) Pathologist [facility] WBC 6.8 3.8 - 9.9 K/cumm [facility] Hgb 13.5 13.0 - 17.5 g/dL [facility] Hct 36.4(L) 38.9 - 50.3 % [facility] Plt 153 150 - 400 K/cumm [facility] MPV 11.7 9.1 - 12.3 fL [facility] RBC 3.72(L) 4.30 - 5.80 M/cumm [facility] MCV 97.8(H) 81.3 - 96.4 fL [facility] MCH 36.3(H) 27.1 - 33.3 pg [facility] MCHC 37.1(H) 32.3 - 35.7 g/dL [facility] RDW CV 17.2(H) 11.1 - 14.9 % [facility] RDW SD 62.4(H) 35.7 - 48.1 fL [facility] NRBC abs 0.00 0.00 - 0.01 K/cumm [facility] Blood 04/19/2023 10:3 5 AM CDT 04/19/2023 1:04 PM CDT us Lisandra Auguste MEDIA RELATIONS ASSOCIATE LAB BLOOD ORDERABLES Chata l Result Performing Organization Address [facility] [employer] Phone Number [facility] Department [place] [address] * (ABNORMAL) Cytomegalovirus (CMV) DNA PCR, quantitative Blood (04/19/2023 10:35 AM CDT) [facility] Signature CMV DNA Detected( A) [facility] Comment: Interpretive Data: The quantifiable range of this assay is 34 IUnits/mL to 10,000,000 IUnits/mL (1.53 log IUnits/mL to 7.0 log IUnits/mL). Testing was performed by the NIA 6800 CMV Test ([employer] Testing performed at [facility]. Current interpretive data was last revised on 2021. CMV DNA IU/mL 4,390 IUnits/mL [facility] CMV DNA log IU/mL 3.64 log IUnits/mL [facility] Blood 04/19/2023 10:3 5 AM CDT 04/19/2023 1:52 PM CDT Lisandra Auguste MEDIA RELATIONS ASSOCIATE LAB MICROBIOLOGY - GENERA L ORDERABLES Final Result Performing Organization Address [facility] [employer] Phone Number [facility] Department [place] [address] documented in this encounter Visit Diagnoses Diagnosis 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 documented in this encounter Care Teams Pulp Refiner Operator Relationship Specialty Start Date End Date Beka Nick MD [address] [place] [address] PCP - General Family Practice 04/19/23 04/19/23 Amber Montesinos, SHAILESH Director Of Special Services Transplant 11/17/19 Jil Duncan MD Consulting Physician Infectious Diseases 01/10/20 Anita Gillespie MD Medical Oncologist/Entry Specialist Medical Oncology 10/07/20 Tabitha Hurley MD [address] [facility] [address] [place] [address] Consulting Physician Rheumatology 10/22/21 Massiel Gastelum MD [address] [place] [address] Consulting Physician Otolaryngology 08/27/22 documented as of this encounter
--- OUTSIDE RECORDS SUMMARY | 2024-10-28 06:10 | XMS_ITS | Encounter Summary ---
Author Organization [facility] Healthcare Address [address] [place] [address] Care Team Providers Care Dumper Bailer Operator Name Role Phone Guero Colunga Primary Care Provider [phone] Amber Montesinos RN Unavailable [phone] Jil Duncan MD Unavailable [phone] Anita Gillespie MD Unavailable [phone] Tabitha Hurley MD Unavailable [phone] Massiel Gastelum MD Unavailable [phone] Encounter Details Date Type Department Care Team (Latest Contact Info) Description 03/19/2023 10:04 AM CDT - 03/19/2023 11:59 PM CDT Hospital Encounter [address] [address] Cytomegalovirus infection, unspecified cytomegaloviral infection type (HCC) Discharge Disposition: Discharge to home or [...] on file 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 Gender Identity Not on file Sexual Orientation [...] CYTOMEGALOVIRUS (CMV) DNA, QUANT GEN LAB Routine 03/19/2023 10:04 AM CDT Cytomegalovirus infection, unspecified cytomegaloviral infection type (HCC) EGFR Routine 03/19/2023 10:04 AM CDT DIFFERENTIAL AUTO Routine 03/19/2023 10: 04 AM CDT TACROLIMUS LEVEL, TROUGH Routine 03/19/2023 10:04 AM CDT CBC WITH AUTO DIFFERENTIAL Routine 03/19/2023 10:04 AM CDT GAMMA GT Routine 03/19/2023 10:04 AM CDT COMPREHENSIVE METABOLIC PANEL Routine 03/19/2023 10:04 AM CDT documented in this encounter Results * (ABNORMAL) Cytomegalovirus (CMV) DNA PCR, quantitative Blood (03/19/2023 10:04 AM CDT) CMV DNA Detected( A) [facility] Comment: Interpretive Data: The quantifiable range of this assay is 34 IUnits/mL to 10,000,000 IUnits/mL (1.53 log IUnits/mL to 7.0 log IUnits/mL). Testing was performed by the NIA 6800 CMV Test ([employer] Testing performed at [facility]. Current interpretive data was last revised on 2021. Testing performed by: [facility], [address] [place]., [address] CMV DNA IU/mL 2,300 IUnits/mL [facility] Comment:Testing performed by : [facility], [address] [place]., [address] CMV DNA log IU/mL 3.36 log IUnits/mL [facility] Comment:Testing performed by : [facility], [address] [place]., [address] Blood 03/19/2023 10:0 4 AM CDT 03/19/2023 11:17 PM CDT us Lisandra Auguste NP LAB MICROBIOLOGY - GENERA L ORDERABLES Final Result [facility] [address] [place] [address] * eGFR (03/19/2023 10:04 AM CDT) Pathologist [facility] eGFR 127 mL/min/1. 73 m2 [facility] [...] interpretive data was last reviewed 2021. Blood 03/19/2023 10:0 4 AM CDT 03/19/2023 3:38 PM CDT us Jose Angel Alonso MD LAB BLOOD ORDERABLES Final Result [facility] [address] [place] [address] * (ABNORMAL) Differential, auto (03/19/2023 10:04 AM CDT) Pathologist [facility] Neutrophil abs 3.2 1.7 - 6.5 K/cumm [facility] Imm gran abs 0.0 0.0 - 0.1 K/cumm [facility] Lymphocyte abs 3.4(H) 0.8 - 3.3 K/cumm [facility] Monocyte abs 1.1(H) 0.2 - 0.8 K/cumm [facility] Eosinophil abs 0.2 0.0 - 0.5 K/cumm [facility] Basophil abs 0.1 0.0 - 0.1 K/cumm [facility] Neutrophil pct 39.5 % [facility] Comment: Interpretive Data Percent cell count reference ranges are not reported, since discordance with absolute values may lead to misinterpretation of CBC data. Current Interpretive Data was last revised on 2018. Imm gran pct 0.1 % [facility] Comment: Interpretive Data Percent cell count reference ranges are not reported, since discordance with absolute values may lead to misinterpretation of CBC data. Current Interpretive Data was last revised on 2018. Lymphocyte pct 42.0 % [facility] Comment: Interpretive Data Percent cell count reference ranges are not reported, since discordance with absolute values may lead to misinterpretation of CBC data. Current Interpretive Data was last revised on 2018. Monocyte pct 14.0 % [facility] Comment: Interpretive Data Percent cell count reference ranges are not reported, since discordance with absolute values may lead to misinterpretation of CBC data. Current Interpretive Data was last revised on 2018. Eosinophil pct 3.0 % [facility] Comment: Interpretive Data Percent cell count reference ranges are not reported, since discordance with absolute values may lead to misinterpretation of CBC data. Current Interpretive Data was last revised on 2018. Basophil pct 1.4 % [facility] Comment: Interpretive Data Percent cell count reference ranges are not reported, since discordance with absolute values may lead to misinterpretation of CBC data. Current Interpretive Data was last revised on 2018. Blood 03/19/2023 10:0 4 AM CDT 03/19/2023 2:02 PM CDT us Jose Angel Alonso MD LAB BLOOD ORDERABLES Final Result [facility] [address] [place] [address] * Tacrolimus level trough (03/19/2023 10:04 AM CDT) Pathologist [facility] Tacrolimus trough 2.7 ng/mL [facility] Comment: Interpretive Data Testing performed by liquid chromatography-tandem mass spectrometry. ??Therapeutic concentrations vary depending on type of transplanted organ and time elapsed since transplant. ??Typical trough concentrations range from 5-15 ng/mL. ??This test was developed and its performance characteristics determined by the [facility] consistent with CLIA requirements. ??This test has not been cleared or approved by the [place] Food and Drug administration. ??Current interpretive data last reviewed 2020. Testing performed by: [facility], [address] [place]., [address] Blood 03/19/2023 10:0 4 AM CDT 03/19/2023 4:44 PM CDT Jose Angel Alonso MD LAB BLOOD ORDERABLES Final Result [facility] [address] [place] [address] * (ABNORMAL) CBC with auto differential (03/19/2023 10:04 AM CDT) Pathologist [facility] WBC 8.0 3.8 - 9.9 K/cumm [facility] Hgb 14.6 13.0 - 17.5 g/dL [facility] Hct 41.1 38.9 - 50.3 % [facility] Plt 179 150 - 400 K/cumm [facility] MPV 12.0 9.1 - 12.3 fL [facility] RBC 4.06(L) 4.30 - 5.80 M/cumm [facility] MCV 101.2(H) 81.3 - 96.4 fL [facility] MCH 36.0(H) 27.1 - 33.3 pg [facility] MCHC 35.5 32.3 - 35.7 g/dL [facility] RDW CV 17.3(H) 11.1 - 14.9 % [facility] RDW SD 64.7(H) 35.7 - 48.1 fL [facility] NRBC abs 0.00 0.00 - 0.01 K/cumm [facility] Blood 03/19/2023 10:0 4 AM CDT 03/19/2023 2:02 PM CDT us Jose Angel Alonso MD LAB [place] [address] [address] [place] [address] * (ABNORMAL) Comprehensive metabolic panel (03/19/2023 10:04 AM CDT) Sodium 142 135 - 145 mmol/L [facility] Potassium, pl 4.3 3.3 - 4.9 mmol/L [facility] Chloride 112(H) 97 - 110 mmol/L [facility] CO2 22 22 - 32 mmol/L [facility] Anion gap 8 2 - 15 mmol/L [facility] BUN 11 8 - 25 mg/dL [facility] Creatinine 0.70(L) 0.80 - 1.30 mg/dL [facility] Comment:Icteric sample, test results may be affected. Glucose 90 70 - 199 mg/dL [facility] Comment: Interpretive Data Fasting glucose >/= 126 [...] - 10.3 mg/dL [facility] Bilirubin, total 2.0(H) 0.1 - 1.2 mg/dL [facility] Protein, pl 5.6(L) 6.5 - 8.5 g/dL [facility] Albumin 3.1(L) 3.5 - 5.0 g/dL [facility] Alk phos 285(H) 40 - 130 Units/L [facility] ALT 47 7 - 55 Units/L [facility] AST 71(H) 10 - 50 Units/L [facility] Blood 03/19/2023 10:0 4 AM CDT 03/19/2023 2:01 PM CDT Jose Angel Alonso MD LAB BLOOD ORDERABLES Final Result Performing Organization Address [facility] Co de Phone Number [facility] [address] [place] [address] * (ABNORMAL) Gamma GT (03/19/2023 10:04 AM CDT) GGT 59(H) 10 - 50 Units/L [facility] Blood 03/19/2023 10:0 4 AM CDT 03/19/2023 2:01 PM CDT Jose Angel Alonso MD LAB BLOOD ORDERABLES Final Result Performing Organization Address [email or web address]] de Phone Number [facility] [address] [place] [address] documented in this encounter Visit Diagnoses Diagnosis Cytomegalovirus infection, unspecified cytomegaloviral infection type (HCC) documented in this encounter Care Teams Dumper Bailer Operator Relationship Specialty Start Date End Date Guero Colunga DO PCP - General Internal Medicine 03/22/19 04/18/23 Amber Montesinos RN Weed Cutter Transplant 11/17/19 Jil Duncan MD Consulting Physician Infectious Diseases 01/10/20 Anita Gillespie MD Medical Oncologist/Production Control Pegboard Clerk Medical Oncology 10/07/20 Tabihta Hurley MD [address] [place] [address] Consulting Physician Rheumatology 10/22/21 Massiel Gastelum MD [address] [place] [address] Consulting Physician Otolaryngology 08/27/22 documented as of this encounter
--- OUTSIDE RECORDS SUMMARY | 2024-10-28 06:10 | XMS_ITS | Encounter Summary ---
Author Organization [facility] Address [address] [place] [address] Phone Care Team Providers Care Distributor Of Directories Name Role Phone Guero Colunga DO Primary Care Provider [phone] Amber Montesinos RN Unavailable [phone] Jil Duncan MD Unavailable [phone] Anita Gillespie MD Unavailable [phone] Tabitha Hurley MD Unavailable [phone] Massiel Gastelum MD Unavailable [phone] Encounter Details Date Type Department Care Team (Late st Contact Info) Description 02/01/2023 Orders Only [facility] Scanning, Provider Social History Tobacco [...] on file 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 Gender Identity Not on file Sexual Orientation Straight 08/22/2021 9: 23 AM CDT documented as of this encounter Plan of Treatment Scheduled Procedures Name Priority Associated Diagnoses Date/Ti me COLONOSCOPY Encounter for screening for colorectal cancer in high risk patient Family history of rectal cancer documented as of this encounter Procedures Procedure Name Priority Date/Time Associated Diagnosis Comments SCAN - LABS 02/01/2023 documented in this encounter Results * SCAN - LABS (02/01/2023) us Provider Scanning Final Result documented in this encounter Visit Diagnoses Not on filedocumented in this encounter Care Teams Distributor Of Directories Relationship Specialty Start Date End Date Guero Colunga DO PCP - General Internal Medicine 03/22/19 04/18/23 Amber Montesinos RN Translator Deaf Transplant 11/17/19 Jil Duncan MD Consulting Physician Infectious Diseases 01/10/20 Anita Gillespie MD Medical Oncologist/Winchman/Crane Operator Medical Oncology 10/07/20 Tabitha Hurley MD [address] [place] [address] Consulting Physician Rheumatology 10/22/21 Massiel Gastelum MD [address] [place] [address] Consulting Physician Otolaryngology 08/27/22 documented as of this encounter
--- OUTSIDE RECORDS SUMMARY | 2024-10-28 06:10 | XMS_ITS | Encounter Summary ---
Author Organization [facility] Healthcare Address [address] [place] [address] Care Team Providers Care Mold Shop Supervisor Name Role Phone Guero Colunga Primary Care Provider [phone] Amber Montesinos RN Unavailable [phone] Jil Duncan MD Unavailable [phone] Anita Gillespie MD Unavailable [phone] Tabitha Hurley MD Unavailable [phone] Massiel Gastelum MD Unavailable [phone] Encounter Details Date Type Department Care Team (Late st Contact Info) Description 02/01/2023 Orders Only [facility] [address] [place] [address] Scanning, Provider Social History Tobacco Use Types [...] file 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 Gender Identity Not on file Sexual Orientation Straight 08/22/2021 9: 23 AM CDT documented as of this encounter Plan of Treatment Scheduled Procedures Name Priority Associated Diagnoses Date/Ti me COLONOSCOPY Encounter for screening for colorectal cancer in high risk patient Family history of rectal cancer documented as of this encounter Procedures Procedure Name Priority Date/Time Associated Diagnosis Comments SCAN - LABS 02/01/2023 1:20 PM CDT documented in this encounter Results * SCAN - LABS (02/01/2023 1:20 PM CDT) us Provider Scanning Final Result documented in this encounter Visit Diagnoses Not on filedocumented in this encounter Care Teams Mold Shop Supervisor Relationship Specialty Start Date End Date Guero Colunga DO PCP - General Internal Medicine 03/22/19 04/18/23 Amber Montesinos RN Unit Nurse Transplant 11/17/19 Jil Duncan MD Consulting Physician Infectious Diseases 01/10/20 Anita Gillespie MD Medical Oncologist/Lead Laying And Gluing Machine Operator Medical Oncology 10/07/20 Tabitha Hurley MD [address] [place] [address] Consulting Physician Rheumatology 10/22/21 Massiel Gastelum MD [address] [place] [address] Consulting Physician Otolaryngology 08/27/22 documented as of this encounter
--- OUTSIDE RECORDS SUMMARY | 2024-10-28 06:10 | XMS_ITS | Encounter Summary ---
Author Organization [facility] Healthcare Address [address] [place] [address] Care Team Providers Care Ball Worker Name Role Phone Guero Colunga Primary Care Provider [phone] Amber Montesinos RN Unavailable [phone] Jil Duncan MD Unavailable [phone] Anita Gillespie MD Unavailable [phone] Tabitha Hurley MD Unavailable [phone] Massiel Gastelum MD Unavailable [phone] Encounter Details Date Type Department Care Team (Latest Contact Info) Description 02/12/2023 12:58 PM CDT - 02/12/2023 11:59 PM CDT Hospital Encounter [address] [address] 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HCC); Cytomegalovirus infection, unspecified cytomegaloviral infection type (HCC) [...] on file 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 Gender Identity Not on file Sexual Orientation [...] Priority Date/Time Associated Diagnosis Comments EGFR Routine 02/12/2023 7:10 PM CDT COMPREHENSIVE METABOLIC PANEL Routine 02/12/2023 7:10 PM CDT BLOOD MISC TO [place] Routine 02/12/2023 12 :58 PM CDT CYTOMEGALOVIRUS (CMV) DNA, QUANT GEN LAB Routine 02/12/2023 12:58 PM CDT Cytomegalovirus infection, unspecified cytomegaloviral infection type (HCC) DIFFERENTIAL AUTO Routine 02/12/2023 12: 58 PM CDT 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HCC) CBC WITH AUTO DIFFERENTIAL Routine 02/12/2023 12:58 PM CDT 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HCC) documented in this encounter Results * eGFR (02/12/2023 7:10 PM CDT) [facility] eGFR 125 mL/min/1. 73 m2 [facility] Comment: Interpretive [...] interpretive data was last reviewed 2021. Blood 02/12/2023 7:10 PM CDT 02/12/2023 7:10 PM CDT Ige Sonido Duncan MD LAB [place] [address] [address] Department [place] [address] * (ABNORMAL) Comprehensive metabolic panel (02/12/2023 7:10 PM CDT) Pathologist [facility] Sodium 141 135 - 145 mmol/L [facility] Potassium, pl 4.0 3.3 - 4.9 mmol/L [facility] Chloride 107 97 - 110 mmol/L [facility] CO2 23 22 - 32 mmol/L [facility] Anion gap 11 2 - 15 mmol/L [facility] BUN 10 8 - 25 mg/dL [facility] Creatinine 0.74(L) 0.80 - 1.30 mg/dL [facility] Comment:Icteric sample, test results may be affected. Glucose 91 70 - 199 mg/dL [facility] Comment: [...] interpretive data was last revised 2022. Calcium 9.3 8.5 - 10.3 mg/dL [facility] Bilirubin, total 2.1(H) 0.1 - 1.2 mg/dL [facility] Protein, pl 6.0(L) 6.5 - 8.5 g/dL [facility] Albumin 3.6 3.5 - 5.0 g/dL [facility] Alk phos 332(H) 40 - 130 Units/L [facility] ALT 47 7 - 55 Units/L [facility] AST 80(H) 10 - 50 Units/L [facility] Blood 02/12/2023 7:10 PM CDT 02/12/2023 7:10 PM CDT Jil Duncan MD LAB BLOOD ORDERABLES Final Result Performing Organization Address [facility] Co de Phone Number [facility] [address] [place] [address] * BLOOD MISC TO [place] (02/12/2023 12:58 PM CDT) Test name, chem CMVNG [facility] Misc See Footnote [facility] Comment: Test ?Result ??Flag ??Unit ??RefValue CMV Antiviral Resistance by NGS, P ??CMV UL97 mutations ?TNP ?CMV Antiviral Resistance by NGS, P was cancelled on ?02/16/2023 at 08:35; Test not performed. ??Patient does not ?meet testing criteria. ?Test Performed by: ?[facility] ?[address] [place] [address] ?Manufacturing Sales Representative: Jason Sandy M.D. Ph.D.; CLIA# [id number] Blood 02/12/2023 12:5 8 PM CDT 02/15/2023 8:22 AM CDT Narrative [facility] - 02/16/2023 8:40 AM CDT CMV RESISTANCE Jil Duncan MD LAB BLOOD ORDERABLES Final Result Performing Organization Address [facility] Co de Phone Number [facility] [address] Department [place] [address] * (ABNORMAL) Differential, auto (02/12/2023 12:58 PM CDT) Neutrophil abs 2.3 1.7 - 6.5 K/cumm [facility] Imm gran abs 0.0 0.0 - 0.1 K/cumm [facility] Lymphocyte abs 4.0(H) 0.8 - 3.3 K/cumm [facility] Monocyte abs 1.1(H) 0.2 - 0.8 K/cumm [facility] Eosinophil abs 0.1 0.0 - 0.5 K/cumm [facility] Basophil abs 0.2(H) 0.0 - 0.1 K/cumm [facility] Neutrophil pct 29.6 % [facility] Comment: Interpretive Data Percent cell count reference ranges are not reported, since discordance with absolute values may lead to misinterpretation of CBC data. Current Interpretive Data was last revised on 2018. Imm gran pct 0.1 % [facility] Comment: Interpretive Data Percent cell count reference ranges are not reported, since discordance with absolute values may lead to misinterpretation of CBC data. Current Interpretive Data was last revised on 2018. Lymphocyte pct 51.8 % [facility] Comment: Interpretive Data Percent cell count reference ranges are not reported, since discordance with absolute values may lead to misinterpretation of CBC data. Current Interpretive Data was last revised on 2018. Monocyte pct 14.8 % [facility] Comment: Interpretive Data Percent cell count reference ranges are not reported, since discordance with absolute values may lead to misinterpretation of CBC data. Current Interpretive Data was last revised on 2018. Eosinophil pct 1.6 % [facility] Comment: Interpretive Data Percent cell count reference ranges are not reported, since discordance with absolute values may lead to misinterpretation of CBC data. Current Interpretive Data was last revised on 2018. Basophil pct 2.1 % [facility] Comment: Interpretive Data Percent cell count reference ranges are not reported, since discordance with absolute values may lead to misinterpretation of CBC data. Current Interpretive Data was last revised on 2018. Blood 02/12/2023 12:5 8 PM CDT 02/12/2023 6:24 PM CDT us Lisandra Auguste PACKAGING ENGINEER LAB BLOOD ORDERABLES Chata cuadra Result Performing Organization Address [facility]/ZIP Co de Phone Number [facility] [address] [place] [address] * (ABNORMAL) CBC with auto differential (02/12/2023 12:58 PM CDT) Pathologist [facility] WBC 7.7 3.8 - 9.9 K/cumm [facility] Hgb 14.3 13.0 - 17.5 g/dL [facility] Hct 39.7 38.9 - 50.3 % [facility] Plt 190 150 - 400 K/cumm [facility] MPV 11.3 9.1 - 12.3 fL [facility] RBC 3.99(L) 4.30 - 5.80 M/cumm [facility] MCV 99.5(H) 81.3 - 96.4 fL [facility] MCH 35.8(H) 27.1 - 33.3 pg [facility] MCHC 36.0(H) 32.3 - 35.7 g/dL [facility] RDW CV 16.9(H) 11.1 - 14.9 % [facility] RDW SD 62.0(H) 35.7 - 48.1 fL [facility] NRBC abs 0.00 0.00 - 0.01 K/cumm [facility] Blood 02/12/2023 12:5 8 PM CDT 02/12/2023 6:24 PM CDT Lisandra Auguste PACKAGING ENGINEER LAB BLOOD ORDERABLES Chata l Result Performing Organization Address [facility]/ZIP Co de Phone Number [facility] [address] [place] [address] * (ABNORMAL) Cytomegalovirus (CMV) DNA PCR, quantitative Blood (02/12/2023 12:58 PM CDT) Pathologist [facility] CMV DNA Detected( A) [facility] Comment: Interpretive Data: The quantifiable range of this assay is 34 IUnits/mL to 10,000,000 IUnits/mL (1.53 log IUnits/mL to 7.0 log IUnits/mL). Testing was performed by the NIA 6800 CMV Test ([employer] Testing performed at [facility]. Current interpretive data was last revised on 2021. Testing performed by: [facility], [address] [place]., [address] CMV DNA IU/mL 7,410 IUnits/mL [facility] Comment:Testing performed by : [facility], [address] [place]., [address] CMV DNA log IU/mL 3.87 log IUnits/mL [facility] Comment:Testing performed by : [facility], [address] [place]., [address] Blood 02/12/2023 12:5 8 PM CDT 02/14/2023 3:02 AM CDT Lisandra Auguste PACKAGING ENGINEER LAB MICROBIOLOGY - GENERA L ORDERABLES Final Result [facility] [address] [place] [address] documented in this encounter Visit Diagnoses Diagnosis 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 Cytomegalovirus infection, unspecified cytomegaloviral infection type (HCC) documented in this encounter Care Teams Ball Worker Relationship Specialty Start Date End Date Guero Colunga DO PCP - General Internal Medicine 03/22/19 04/18/23 Amebr Montesinos, SHAILESH Financial Sales Professional Transplant 11/17/19 Jil Duncan MD Consulting Physician Infectious Diseases 01/10/20 Anita Gillespie MD Medical Oncologist/Film Developing Machine Operator Medical Oncology 10/07/20 Tabitha Hurley MD [address] [facility] [address] [place], [place] [id number] Consulting Physician Rheumatology 10/22/21 Massiel Gastelum MD [address] [place], [place] [id number] Consulting Physician Otolaryngology 08/27/22 documented as of this encounter
--- OUTSIDE RECORDS SUMMARY | 2024-10-28 06:11 | XMS_ITS | Encounter Summary ---
Author Organization [facility] Address [address] [place] [address] Phone Care Team Providers Care Ppap Coordinator Name Role Phone Guero Colunga DO Primary Care Provider [phone] Amber Montesinos RN Unavailable [phone] Jil Duncan MD Unavailable [phone] Anita Gillespie MD Unavailable [phone] Tabitha Hurley MD Unavailable [phone] Massiel Gastelum MD Unavailable [phone] Encounter Details Date Type Department Care Team (Late st Contact Info) Description 12/24/[address] [facility] [address] [facility] Medical Office Building [address] [place] [address] Massiel Gastelum MD 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 ----- Message from Massiel Gastelum MD sent at 12/23/2022 4:04 PM CRM DEVELOPER ----- Please call patient. The preliminary results on the culture from Wednesday show a common bacteria thatcauses sinusitis. It is not likely well treated by the Augmentin. Please change him to Levaquin x10d. Thank you - AO DEVELOPER DEVELOPER documented in this encounter Plan of Treatment Scheduled Procedures Name Priority Associated Diagnoses Date/Ti me COLONOSCOPY Encounter for screening for colorectal cancer in high risk patient Family history of rectal cancer documented as of this encounter Visit Diagnoses Not on filedocumented in this encounter Care Teams Ppap Coordinator Relationship Specialty Start Date End Date Guero Colunga DO PCP - General Internal Medicine 03/22/19 04/18/23 Amber Montesinos, SHAILESH Filler Operator Transplant 11/17/19 Jil Duncan MD Consulting Physician Infectious Diseases 01/10/20 Anita Gillespie MD Medical Oncologist/Band Log Mill And Carriage Operator Medical Oncology 10/07/20 Tabitha Hurley MD [address] [place] [address] Consulting Physician Rheumatology 10/22/21 Massiel Gastelum MD [address] [place] [address] Consulting Physician Otolaryngology 08/27/22 documented as of this encounter
--- OUTSIDE RECORDS SUMMARY | 2024-10-28 06:11 | XMS_ITS | Encounter Summary ---
Author Organization [facility] Address [address] [place] [address] Phone Care Team Providers Care Natural History Collections Curator Name Role Phone Guero Clounga DO Primary Care Provider [phone] Amber Montesinos RN Unavailable [phone] Jil Duncan MD Unavailable [phone] Anita Gillespie MD Unavailable [phone] Tabitha Hurley MD Unavailable [phone] Encounter Details Date Type Department Care Team (Late st Contact Info) Description 08/05/2022 Orders Only [facility] ENT [address] [facility] Medical Office Building [address] [place] [address] Massiel Gastelum MD [address] [facility] [address] [place] [address] Social History Tobacco Use Types Packs/Day Years Used Date Smoking Tobacco: Never Smokeless Tobacco: Current Chew Alcohol Use Standard Drinks/Week Comments Yes 0 (1 standard drink = 0.6 oz pur e alcohol) occassional AUDIT-C Answer Date Recorded Q1: How often do you have a drink containing alc ohol? 2-4 times a month 12/19/2021 Q2: How many drinks containi ng alcohol do you have on a typical day when you are drinking? 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 Gender Identity Not on file Sexual Orientation Straight 08/22/2021 9: 23 AM CDT documented as of this encounter Ordered Prescriptions Prescription Sig Dispense Quantity Refills Last Filled Start Date End Date amoxicillin-clavul anate (Augmentin) 875-125 mg per tablet Take 1 tablet by mouth 2 (two) times a day for 21 days 42 tablet 08/05/2022 08/26/2022 documented in this encounter Plan of Treatment Scheduled Procedures Name Priority Associated Diagnoses Date/Ti me COLONOSCOPY Encounter for screening for colorectal cancer in high risk patient Family history of rectal cancer documented as of this encounter Visit Diagnoses Not on filedocumented in this encounter Care Teams Natural History Collections Curator Relationship Specialty Start Date End Date Guero Colunga DO PCP - General Internal Medicine 03/22/19 04/18/23 Amber Montesinos, SHAILESH Commercial Sales Consultant Transplant 11/17/19 Jil Duncan MD Consulting Physician Infectious Diseases 01/10/20 Anita Gillespie MD Medical Oncologist/Pull Up Hand Medical Oncology 10/07/20 Tabitha Hurley MD [address] [facility] 14 [place] [address] Consulting Physician Rheumatology 10/22/21 documented as of this encounter
--- OUTSIDE RECORDS SUMMARY | 2024-10-28 06:11 | XMS_ITS | Encounter Summary ---
Author Organization [facility] Address [address] [place] [address] Phone Care Team Providers Care Security Flex Utility Officer Name Role Phone Guero Colunga DO Primary Care Provider [phone] Amber Montesinos RN Unavailable [phone] Jil Duncan MD Unavailable [phone] Anita Gillespie MD Unavailable [phone] Tabitha Hurley MD Unavailable [phone] Massiel Gastelum MD Unavailable [phone] Encounter Details Date Type Department Care Team (Late st Contact Info) Description 09/10/[address] 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 Gender Identity Not on file Sexual Orientation Straight 08/22/2021 9: 23 AM CDT documented as of this encounter Plan of Treatment Scheduled Procedures Name Priority Associated Diagnoses Date/Ti me COLONOSCOPY Encounter for screening for colorectal cancer in high risk patient Family history of rectal cancer documented as of this encounter Visit Diagnoses Diagnosis CVID (common variable immunodeficiency) (HCC)- Primary Common variable immunodeficiency documented in this encounter Care Teams Security Flex Utility Officer Relationship Specialty Start Date End Date Guero Colunga DO PCP - General Internal Medicine 03/22/19 04/18/23 Amber Montesinos RN Child Development Instructor Transplant 11/17/19 Jil Duncan MD Consulting Physician Infectious Diseases 01/10/20 Anita Gillespie MD Medical Oncologist/Associate Creative Director Medical Oncology 10/07/20 Tabitha Hurley MD [address] [place] [address] Consulting Physician Rheumatology 10/22/21 Massiel Gastelum MD [address] [place] [address] Consulting Physician Otolaryngology 08/27/22 documented as of this encounter
--- OUTSIDE RECORDS SUMMARY | 2024-10-28 06:11 | XMS_ITS | Encounter Summary ---
Author Organization [facility] Address [address] [place] [address] Phone Care Team Providers Care Hogshead Wrecker Name Role Phone Guero Colunga DO Primary Care Provider [phone] Amber Montesinos RN Unavailable [phone] Jil Duncan MD Unavailable [phone] Anita Gillespie MD Unavailable [phone] Tabitha Hurley MD Unavailable [phone] Reason for Visit * Reason Onset Date Comments Scheduling surgery 08/03/2022 Encounter Details Date Type Department Care Team (Late st Contact Info) Description 08/03/2022 Telephone [facility] - [facility] ENT [address] [facility] Advanced Medicine 11th [place] [address] [place] [address] Kita Ray Scheduling surgery Social History Tobacco Use Types Packs/Day Years [...] file 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 Left voicemail with contact information. * Telephone Encounter - Kita Ray - 08/03/2022 3:56 PM CDT Contacted patient to discuss scheduling surgery; looking at Sep 04 CAM. documented in this encounter Plan of Treatment Scheduled Procedures Name Priority Associated Diagnoses Date/Ti me COLONOSCOPY Encounter for screening for colorectal cancer in high risk patient Family history of rectal cancer documented as of this encounter Visit Diagnoses Not on filedocumented in this encounter Care Teams Hogshead Wrecker Relationship Specialty Start Date End Date Gene ColungaeDO PCP - General Internal Medicine 03/22/19 04/18/23 Amber Montesinos RN Erco Machine Operator Transplant 11/17/19 Jil Duncan MD Consulting Physician Infectious Diseases 01/10/20 Anita Gillespie MD Medical Oncologist/Director Foundation Medical Oncology 10/07/20 Tabitha Hurley MD [facility] [address] [facility] 14 [place] [address] Consulting Physician Rheumatology 10/22/21 documented as of this encounter
--- OUTSIDE RECORDS SUMMARY | 2024-10-28 06:11 | XMS_ITS | Encounter Summary ---
Author Organization [facility] Address [address] [place] [address] Phone Care Team Providers Care Glaze Supervisor Name Role Phone Guero Colunga DO Primary Care Provider [phone] Amber Montesinos RN Unavailable [phone] Jil Duncan MD Unavailable [phone] Anita Gillespie MD Unavailable [phone] Tabitha Hurley MD Unavailable [phone] Massiel Gastelum MD Unavailable [phone] Reason for Referral * Consultation (Routine) - Closed Specialty Diagnoses / Procedures Referred By Contyadira t Referred To Contact Otolaryngology Diagnoses Chronic pansinusitis Guero Colunga DO Phone: tel: fax: [facility] (All Locations) Referral ID Status Reason Start Date Expiration Date V isits Requested Visits Authorized [id number] Closed Specialty Services Required 12/11/2022 01/10/2024 99 99 Question Answer Please select the performing region: [facility] (All Locations) [167] # of visits: 1 C.O.D. BILLER Reason for Visit * Reason Comments chronic pansinusitis * Consultation (Routine) - Closed Specialty Diagnoses / Procedures Referred By Sascha rey Referred To Contact Otolaryngology Diagnoses Chronic pansinusitis Guero Colunga DO Phone: tel: fax: [facility] (All Locations) Referral ID Status Reason Start Date Expiration Date V isits Requested Visits Authorized [id number] Closed Specialty Services Required 12/11/2022 01/10/2024 99 99 Encounter Details Date Type Department Care Team (Late st Contact Info) Description 12/21/2022 8:00 AM C.O.D. BILLER [facility] ENT [address] [facility] Medical Office Building [address] [place] [address] Massiel Gastelum MD [address] [facility] [address] [place] [address] Chronic pansinusitis (Primary Dx); Status post functional endoscopic sinus surgery; Immunocompromised patient ([facility]/HCC) ([facility]) Social History Tobacco Use Types Packs/Day Years [...] on file Legal Sex Male 6:28 AM C.O.D. BILLER Gender Identity Not on file Sexual Orientation Straight 08/22/2021 9: 23 AM CDT documented as of this encounter Ordered Prescriptions Prescription Sig Dispense Quantity Refills Last Filled Start Date End Date amoxicillin-clavul anate (Augmentin) 875-125 mg per tablet Take 1 tablet by mouth 2 (two) times a day for 21 days 42 tablet 12/21/2022 12/30/2022 documented in this encounter Progress Notes * Massiel Gastelum MD - 12/21/2022 8:00 AM CST Otolaryngology Post-operative follow-up Note Subjective Patient ID: Beka Nichols is a 27 y.o. male. Chief Complaint: Chief Complaint Patient presents with chronic pansinusitis HPI: Beka Nichols is a 27 y.o. male with h/o liver transplant, PTLD, CVID, and CMV viremia here for follow-up status post endoscopic sinus surgery (bilateral maxillary antrostomy, total ethmoidectomy, frontal sinusotomy, and sphenoidotomy) and septoplasty on 08/28/2022 for chronic rhinosinusitis and re current acute exacerbations. He was last seen 09/07/22 with At the time of surgery, he was noted to have generalized edematous and friable mucosa throughout his sinuses. Septum deviated to the left, narrowing access to the middle meatus. Left middle turbinateresected. Past 2 weeks - sinusitis symptoms developed including congestion. Nasal stuffiness, cough productive of yellow/dark phlegm, some headache. No fever or chest pain. Left ear popping last night. Saline irrigation not able to flow. Prior to this, the saline irrigation was working well with the Navage. He has not been on oral prednisone or antibiotic since September. He is followed by Dr. Gillespie in [...] clear. TM intact with myringosclerosis, middle ear aerated Left: EAC clear. TM intact with myringosclerosis and slight inferior retraction. Middle ear appearsaerated, though poorly visible. NOSE: External nose has no skin lesions. Nasal mucosa is moist. Septum is pre midline caudally. Left nasal cavity narrow with [...] into the right and left nasal cavity. edematous nasal mucosa with thick mucus suction on both sides, suctioned from the nasal cavities and middle meatus. Culture taken from the right sphenoethmoid recess and middle meatus. 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 Maxillary antrostomies patent bilaterally, edematous mucosa with thick white mucus. Nasopharynx clear. The endoscope was removed and the patient tolerated the procedure well. Assessment/Plan 1. Chronic pansinusitis 2. Status post functional endoscopic sinus surgery 3. Immunocompromised patient (CMS/HCC) (HCC) Augmentin times 3 weeks Follow culture. Okay to use Afrin nasal spray times 3-4 days. Do not use longer, or risk of rebound congestion. Recommend saline nasal irrigation after use of the nasal decongestant. Continue saline irrigation b.i.d. with budesonide via Navage . Follow-up 2-3 months, earlier p.r.n.. M. Bonita Gastelum MD FACS Professor Department of Otolaryngology [facility] C.O.D. BILLER documented in this encounter Plan of Treatment Scheduled Procedures Name Priority Associated Diagnoses Date/Ti me COLONOSCOPY Encounter for screening for colorectal cancer in high risk patient Family history of rectal cancer Scheduled Referrals Name Type Priority Associated Diagnoses Orde r Schedule Ambulatory referral to ENT Outpatient Referral Routine Chronic pansinusitis Expected: 12/25/2022 (Approximate), Expires: 12/11/2023 documented as of this encounter Results * (ABNORMAL) Aerobic and anaerobic culture and gram stain Wound Sinus (12/21/2022 1:50 PM C.O.D. BILLER) Direct Specimen Exam Stain: Moderate polymorphonuclear leukocytes seen. Rare Gram Positive Cocci [facility] Report Final Report: Few Mixed microorganisms. Includes the following: Few Moraxella catarrhalis , Beta lactamase positive (.) [facility] Organism MORAXELLA CATARRHALIS [facility] Organism MIXED MICROORGANISMS. [facility] Wound (Sinus) 12/21/2022 1:5 0 PM C.O.D. BILLER 12/21/2022 3:32 PM C.O.D. BILLER Narrative [facility] - 12/26/2022 10:03 AM C.O.D. BILLER Specimen received on an ESwab. Testing performed by [facility] ([phone]) Specimens submitted from normally sterile body sites [...] MICROBIOLOGY - GEN ERAL ORDERABLES Final Result [facility] Department [place] [address] documented in this encounter Visit Diagnoses Diagnosis Chronic pansinusitis- Primary Other chronic sinusitis Status post functional endoscopic sinus surgery Other postprocedural status Immunocompromised patient (HCC) Chronic pansinusitis Other chronic sinusitis documented in this encounter Care Teams Glaze Supervisor Relationship Specialty Start Date End Date Guero Colunga DO PCP - General Internal Medicine 03/22/19 04/18/23 Amber Montesinos RN Drug Abuse Resistance Education Officer Transplant 11/17/19 Jil Duncan MD Consulting Physician Infectious Diseases 01/10/20 Anita Gillespie MD Medical Oncologist/Clinical Appeals Auditor Medical Oncology 10/07/20 Tabitha Hurley MD [address] [place], [place] [address] Consulting Physician Rheumatology 10/22/21 Massiel Gastelum MD [address] [place] [address] Consulting Physician Otolaryngology 08/27/22 documented as of this encounter
--- OUTSIDE RECORDS SUMMARY | 2024-10-28 06:11 | XMS_ITS | Encounter Summary ---
Author Organization [facility] Address [address] [place] [address] Phone Care Team Providers Care Loading Unit Operator Name Role Phone Guero Colunga DO Primary Care Provider [phone] Amber Montesinos RN Unavailable [phone] Jil Duncan MD Unavailable [phone] Anita iGllespie MD Unavailable [phone] Tabitha Hurley MD Unavailable [phone] Massiel Gastelum MD Unavailable [phone] Encounter Details Date Type Department Care Team (Late st Contact Info) Description 09/03/2022 Orders Only [facility] ENT [address] [facility] Medical Office Building [address] [place] [address] Marlene Moss RMA Social History Tobacco Use Types Packs/Day [...] file 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 Gender Identity Not on file Sexual Orientation Straight 08/22/2021 9: 23 AM CDT documented as of this encounter Plan of Treatment Scheduled Procedures Name Priority Associated Diagnoses Date/Ti me COLONOSCOPY Encounter for screening for colorectal cancer in high risk patient Family history of rectal cancer documented as of this encounter Visit Diagnoses Not on filedocumented in this encounter Care Teams Loading Unit Operator Relationship Specialty Start Date End Date Guero Colunga DO PCP - General Internal Medicine 03/22/19 04/18/23 Amber Montesinos, SHAILESH Cap Blocker Transplant 11/17/19 Jil Duncan MD Consulting Physician Infectious Diseases 01/10/20 Anita Gillespie MD Medical Oncologist/Flotation Tender Helper Medical Oncology 10/07/20 Tabitha Hurley MD [address] [place] [address] Consulting Physician Rheumatology 10/22/21 Massiel Gastelum MD [address] [place] [address] Consulting Physician Otolaryngology 08/27/22 documented as of this encounter
--- OUTSIDE RECORDS SUMMARY | 2024-10-28 06:11 | XMS_ITS | Encounter Summary ---
Author Organization [facility] Healthcare Address [address] [place] [address] Care Team Providers Care Lead Painter Name Role Phone Guero Colunga Primary Care Provider [phone] Amber Montesinos RN Unavailable [phone] Jil Duncan MD Unavailable [phone] Anita Gillespie MD Unavailable [phone] Tabitha Hurley MD Unavailable [phone] Massiel Gastelum MD Unavailable [phone] Reason for Referral * Diagnostic Imaging (Routine) - Closed Specialty Diagnoses / Procedures Referred By Contac t Referred To Contact Radiology Diagnoses History of liver transplant (CMS/HCC) (HCC) LFT elevation Procedures US Guided Biopsy Liver Consult to Radiology for Biopsy Theodore Gresham MD [address] [place] [address] [address] [place] [address] Phone: tel: fax: [address] [phone] Referral ID Status Reason Start Date Expiration Date Visits Re quested Visits Authorized [id number] Closed 08/11/2022 09/10/2023 1 1 Reason for Visit * Diagnostic Imaging (Routine) - Closed Specialty Diagnoses / Procedures Referred By Sascha rey Referred To Contact Radiology Diagnoses History of liver transplant (CMS/HCC) (HCC) LFT elevation Procedures US Guided Biopsy Liver Consult to Radiology for Biopsy Theodore Gresham MD [address] [facility] [address] [place] [address] Phone: tel: fax: [address] [phone] Referral ID Status Reason Start Date Expiration Date Visits Re quested Visits Authorized [id number] Closed 08/11/2022 09/10/2023 1 1 Encounter Details Date Type Department Care Team (Latest Contact Info) Description 08/31/2022 8:41 AM CDT - 08/31/2022 11:59 PM CDT Hospital Encounter [facility] Radiology [address] [place], [place] [id number] History of liver transplant (CMS/HCC) (HCC); LFT elevation Discharge Disposition: Discharge to home [...] on file 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 Gender Identity Not on file Sexual Orientation Straight 08/22/2021 9: 23 AM CDT documented as of this encounter Last Filed Vital Signs Vital Sign Reading Time Taken Comments Blood Pressure 107/64 08/31/2022 12:15 PM CDT Pulse 72 08/31/2022 11:20 AM CDT Temperature 36.8 ??C (98.2 ??F) 08/31/2022 9:36 AM CD T Respiratory Rate 18 08/31/2022 1:15 PM CDT Oxygen Saturation 96% 08/31/2022 11:20 AM CDT Inhaled Oxygen Concentration - - Weight 63.5 kg (140 lb) 08/31/2022 9:36 AM CDT Height 172.7 cm (5' 8 ) 08/31/2022 9:36 AM CDT Body Mass Index 21.29 08/31/2022 9:36 AM CDT documented in this encounter Discharge Instructions * Discharge Instructions* Juana Haynes PA - 08/31/2022 11:35 AM CDT Radiology Biopsy Discharge Instructions Procedure: Biopsy of liver Activity - Please stay with a responsible adult today. - No driving or operating heavy machinery for 24 hours. - Rest today, and then increase activities tomorrow as tolerated. - No lifting more than 5 pounds for 24 hours. Diet - No restrictions, resume previous diet - Drink plenty of fluids Other: Medications - Please resume blood thinning medication as follows: N/A -- patient is not taking/resuming anticoagulation. - Resume all other pre-procedure medications as instructed by your physician Wound and Skin Care - Keep area clean and dry for 24 hours. May remove band aids/dressing in 24 hours. - May apply ice to the procedure site for first 24 hours, 20 minutes on then off for hours. What to Expect - Mild soreness at the puncture site is expected for up to 24 hours. If pain persists or worsens, contact your primary physician. If pain or discomfort is severe, return to the Emergency Room. When to call your Doctor Please call your primary physician for any of the following: Pain lasting longer than 24 hours Hematoma/large bruise at puncture site Bleeding/drainage from the puncture site If you have severe abdominal or back pain, go to the nearest emergency room. Be sure to let them know you had an abdominal biopsy recently performed. Follow-up -Please follow-up with your physician as instructed. -All biopsy results are sent to the physician who ordered the exam and will be available in 5 to 7 days. For any questions about these instructions or symptoms following your biopsy: Biopsy nurse coordinator phone number (during business hours): [phone] / [phone] For concerns after hours, please call your primary physician's office/after- hours exchange. For urgent concerns, return to the emergency department for evaluation. documented in this encounter Medications at Time of Discharge acetaminophen (TYLENOL) 500 mg tablet Take 2 tablets (1,000 mg total) by mouth every 6 (six) hours as needed for pain 30 tablet 1 08/28/2022 3 budesonide (Pulmicort) 0.5 mg/2 mL nebulizer solution Administer 2 mL (0.5 mg total) into each nostril daily Mix 4ml into 240ml nasal saline and perform nasal rinse 180 mL 5 02/18/2022 3 ibuprofen (ADVIL,MOTRIN) 600 mg tablet Take 1 tablet (600 mg total) by mouth every 6 (six) hours as needed for pain 30 tablet 1 08/28/2022 3 oxyCODONE (ROXICODONE) 5 mg immediate release tabletIndication s:Pain Take 1 tablet (5 mg total) by mouth every 4 (four) hours as needed for pain 15 tablet 08/28/2022 3 tacrolimus (PROGRAF) 0.5 mg immediate-releas e capsule Take 1 capsule (0.5 mg total) by mouth every other day 05/25/2022 3 traZODone (DESYREL) 50 mg tablet Take 1 tablet (50 mg total) by mouth nightly 30 tablet 2 03/05/2022 3 ursodioL (ACTIGALL) 300 mg capsule Take 2 capsules (600 mg total) by mouth daily with dinner 180 capsule 3 10/02/2021 3 valGANciclovir (VALCYTE) 450 mg tablet Take 900 mg by mouth 2 (two) times a day 3 documented as of this encounter Discharge Disposition Disposition Code Departure Means Destination Discharge to home or self care documented in this encounter Miscellaneous Notes * Post-Procedure Note - Tarik Israel MD - 08/31/2022 10:30 AM CDT Radiology Brief Post Procedure Note Attending: Mac Carr MD Day Light Relief Operator: Tarik Israel MD Sedation/Anesthesia: Min Sedation Pre-Op/Pre-Procedure Diagnosis: Elevated liver enzymes. History of liver transplantation. Post-Op/Post-Procedure Diagnosis: Same Procedure Performed: Ultrasound guided percutaneous liver biopsy, random Procedure Findings: Technical success. Successful embolization of biopsy tract with 2x gelfoam pledgets. Complications: None Estimated Blood Loss: <5 mL Specimens: 1x Intact core sample with 18G Biopince 3 cm throw Condition: Stable Full report to follow. 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 Pt is NPO and not on any blood thinner medication. Have you had a problem with easy bleeding or bruising within the last 30 days? No Have you taken any blood thinners within the last 30 days? Include last dose taken. No PMH: Past Medical History: Diagnosis Date Cancer (CMS/HCC) [...] TW Conv) PNA (pneumonia) Pulmonary emboli (HCC) History of Sedation/Anesthesia Complications: No History of Difficult Airway: No PSH Past Surgical History: Procedure Laterality Date BIOPSY [...] BIOPSY LIVER N/A 05/14/2020 US GUIDED BIOPSY LYMPH NODE SUPERFICIAL LEFT N/A 10/13/2019 US GUIDED BIOPSY LYMPH NODE SUPERFICIAL LEFT N/A 10/07/2021 Social History: Social History Tobacco Use Smoking status: Never Smokeless tobacco: Current Types: Chew Substance and Sexual Activity Drug use: Not Currently Sexual activity: Defer Alcohol Use: Not At Risk Frequency of Alcohol Consumption: 2-4 times a month Average Number of Drinks: 1 or 2 Frequency of Binge Drinking: Never Family History: Family History Problem Relation Age of Onset Rectal cancer Mother Rectal cancer - (Added by TW Conv) Diabetes type II Sister Family history of type 2 diabetes mellitus - (Added by TW Conv) Anesthesia problems Other No Known Problems Father Current Meds: Current Outpatient Medications: acetaminophen (TYLENOL) 500 mg tablet, Take 2 tablets (1,000 mg total) by mouth every 6 (six) hoursas needed for pain, Disp: 30 tablet, Rfl: 1 budesonide (Pulmicort) 0.5 mg/2 mL nebulizer solution, Administer 2 mL (0.5 mg total) into each nostril daily Mix 4ml into 240ml nasal saline and perform nasal rinse (Patient not taking: No sig reported), Disp: 180 mL, Rfl: 5 ibuprofen (ADVIL,MOTRIN) 600 mg tablet, Take 1 tablet (600 mg total) by mouth every 6 (six) hours as needed for pain, Disp: 30 tablet, Rfl: 1 oxyCODONE (ROXICODONE) 5 mg immediate release tablet, Take 1 tablet (5 mg total) by mouth every 4 (four) hours as needed for pain, Disp: 15 tablet, Rfl: 0 tacrolimus (PROGRAF) 0.5 mg immediate-release capsule, Take 1 capsule (0.5 mg total) by mouth everyother day (Patient taking differently: Take 0.5 mg by mouth every other day), Disp: , Rfl: traZODone (DESYREL) 50 mg tablet, Take 1 tablet (50 mg total) by mouth nightly (Patient taking differently: Take 50 mg by mouth nightly as needed), Disp: 30 tablet, Rfl: 2 ursodioL (ACTIGALL) 300 mg capsule, Take 2 capsules (600 mg total) by mouth daily with dinner, Disp: 180 capsule, Rfl: 3 valGANciclovir (VALCYTE) 450 mg tablet, Take 900 mg by mouth 2 (two) times a day, Disp: , Rfl: Current Facility-Administered Medications: Carrier Fluids for Secondary Infusion - 0.9% Sodium Chloride, 30 mL, intravenous, PRN, Cehn, Shanthi P., PA heparin 100 unit/mL injection 500 Units, 5 mL, intra-catheter, Once, Chen, Shanthi P., PA sodium chloride 0.9% flush 0.5-20 mL, 0.5-20 mL, intra-catheter, Q8H PIPPA, Chen, Shanthi P., PA sodium chloride 0.9% flush 0.5-20 mL, 0.5-20 mL, intra-catheter, PRN, Chen, Shanthi P., PA sodium chloride 0.9% flush 10-20 mL, 10-20 mL, intra-catheter, PRN, Chen, Shanthi P., PA sodium chloride 0.9% flush 5-10 mL, 5-10 mL, intra-catheter, Q12H PIPPA, Chen, Shanthi P., PA sodium chloride 0.9% infusion, 30 mL/hr, intravenous, Continuous, Chen, Shanthi P., PA, Last Rate: 30 mL/hr at 08/31/22947, 30 mL/hr at 08/31/22947 Home Meds: HOME MEDICATIONS : acetaminophen (TYLENOL) 500 mg tablet budesonide (Pulmicort) 0.5 mg/2 mL nebulizer solution ibuprofen (ADVIL,MOTRIN) 600 mg tablet oxyCODONE (ROXICODONE) 5 mg immediate release tablet tacrolimus (PROGRAF) 0.5 mg immediate-release capsule traZODone (DESYREL) 50 mg tablet ursodioL (ACTIGALL) 300 mg capsule valGANciclovir (VALCYTE) 450 mg tablet Allergies: No Known Allergies REVIEW OF SYSTEMS: Review of systems per HPI and otherwise all other systems are negative Vitals: Vitals: 08/31/22 0936 BP: 110/60 Pulse: 65 Resp: 16 Temp: 36.8 ??C (98.2 ??F) TempSrc: Temporal SpO2: 98% Weight: 63.5 kg (140 lb) Height: 172.7 cm (5' 8 ) Pertinent Labs: Recent Labs Lab Units 08/31/22 0846 PROTIME (PT) sec 11.3 INR 1.0 APTT sec [address] from 07/05/22 reviewed PERTINENT PHYSICAL EXAM: Constitutional: alert and oriented x3 and no acute distress Lungs: Normal expansion. Clear to auscultation. No rales, rhonchi, or wheezing. Heart: Heart sounds are normal. Regular rate and rhythm without murmur, gallop or rub. Abdomen: Soft, non-tender, normal bowel sounds; no bruits, organomegaly or masses. Liver transplantincisional scar present Assessment:27 y/o M with elevated LFT in the setting of liver transplant -NPO -OK to proceed with Ultrasound guided biopsy of the liver with local/minimal anesthesia -Monitor in PACU for 2 hours post biopsy -DC home with regional dedicated truck driver once cleared by clinical team Airway Exam: normal ASA Classification:Class 3: Patient with severe systemic disease Sedation Plan: Min Sedation PO status: Last PO: NPO since midnight Benefits, risks and alternatives of procedure and planned sedation have been discussed with the patient and/or their fraud representative. All questions answered and they agree to proceed. Cosigned by Mac Carr MD PhD at 08/31/2022 11:51 AM CDT documented in this encounter Plan of Treatment Scheduled Procedures Name Priority Associated Diagnoses Date/Ti me COLONOSCOPY Encounter for screening for colorectal cancer in high risk patient Family history of rectal cancer documented as of this encounter Procedures Procedure Name Priority Date/Time Associated Diagnosis Comments US GUIDED BIOPSY LIVER Schedule Routine, Read Routine (OP Routine) 08/31/2022 11:28 AM CDT History of liver transplant (CMS/HCC) (HCC) LFT elevation SURGICAL PATHOLOGY Routine 08/31/2022 11:03 AM CDT History of liver transplant (CMS/HCC) (HCC) LFT elevation documented in this encounter Results * US Guided Biopsy Liver (08/31/2022 11:28 AM CDT) Anatomical Region Laterality Modality Leg N/A X-Ray Angiograph y 08/31/2022 11:5 1 AM CDT Impressions 09/01/2022 8:37 AM CDT 1. Successful ultrasound-guided core needle biopsy of transplant liver parenchyma. 2. Please see separate Surgical Pathology results for final interpretation. Dictated by: Tarik Israel MD The radiology attending physician has personally reviewed this study, and had reviewed and/or edited this written report and agrees with it. Electronically signed by: Mac Carr M.D., Ph.D Narrative 09/01/2022 8:37 AM CDT EXAMINATION: ULTRASOUND-GUIDED CORE BIOPSY HISTORY: ??Autoimmune hepatitis status post liver transplantation, with intermittent CMV viremia. Elevated liver enzymes. COMPARISON: ??CT abdomen pelvis 07/05/2022 FINDINGS: Successful core needle biopsy of orthotopic transplant liver. Successful biopsy tract embolization with Gelfoam pledgets. ?? TECHNIQUE: ??The procedure for ultrasound-guided core biopsy ??was explained to and discussed with the patient. Risks were explained to include, but not be limited to, hemorrhage, infection, injury to adjacent organs, non-diagnostic specimen and adverse reaction to medications administered. The patient voiced understanding and wished to proceed and signed the consent form. PROCEDURAL SEDATION: Procedural sedation was administered under the attending physician's direction and continuous monitoring by a trained nurse specialist who was independent from those actually performing the procedure. ??Total monitored sedation time was 15 minutes. CORE BIOPSY: ??The liver was evaluated sonographically and an appropriate site was localized for core biopsy. The patient's overlying skin was prepped and draped in the usual sterile fashion. Local anesthesia was achieved via subcutaneous and deep administration with 8 mL of Lidocaine 1%. Under realtime ultrasound guidance, a single pass was made with an 18 gauge BioPince core biopsy needle, 3 cm throw, with the use of a 17 gauge introducer needle. The core specimens were placed in formalin and submitted to the new patient escort service for delivery to Surgical Pathology. The biopsy tract was embolized with Gelfoam pledgets. The patient's skin was cleaned and dressed. The patient tolerated the entire procedure well without immediate complications. Dr. Mac Carr M.D., Ph.D, the attending radiologist, was present from the beginning to the end of the procedure. Drs. Tarik Israel and Mac Carr performed the biopsy. Dr. Tarik Israel (resident physician in radiology) personally participated in sonographic imaging of this patient. Procedure Note Mac Carr MD PhD - 09/01/2022 EXAMINATION: ULTRASOUND-GUIDED CORE BIOPSY HISTORY: Autoimmune hepatitis status post liver transplantation, with intermittent CMV viremia. Elevated liver enzymes. COMPARISON: CT abdomen pelvis 07/05/2022 FINDINGS: Successful core needle biopsy of orthotopic transplant liver. Successful biopsy tract embolization with Gelfoam pledgets. TECHNIQUE: The procedure for ultrasound-guided core biopsy was explained to and discussed with the patient. Risks were explained to include, but not be limited to, hemorrhage, infection, injury to adjacent organs, non-diagnostic specimen and adverse reaction to medications administered. The patient voiced understanding and wished to proceed and signed the consent form. PROCEDURAL SEDATION: Procedural sedation was administered under the attending physician's direction and continuous monitoring by a trained nurse specialist who was independent from those actually performing the procedure. Total monitored sedation time was 15 minutes. CORE BIOPSY: The liver was evaluated sonographically and an appropriate site was localized for core biopsy. The patient's overlying skin was prepped and draped in the usual sterile fashion. Local anesthesia was achieved via subcutaneous and deep administration with 8 mL of Lidocaine 1%. Under realtime ultrasound guidance, a single pass was made with an 18 gauge BioPince core biopsy needle, 3 cm throw, with the use of a 17 gauge introducer needle. The core specimens were placed in formalin and submitted to the new patient escort service for delivery to Surgical Pathology. The biopsy tract was embolized with Gelfoam pledgets. The patient's skin was cleaned and dressed. The patient tolerated the entire procedure well without immediate complications. Dr. Mac Carr M.D., Ph.D, the attending radiologist, was present from the beginning to the end of the procedure. Drs. Tarik Israle and Mac Carr performed the biopsy. Dr. Tarik Israel (resident physician in radiology) personally participated in sonographic imaging of this patient. IMPRESSION: 1. Successful ultrasound-guided core needle biopsy of transplant liver parenchyma. 2. Please see separate Surgical Pathology results for final interpretation. Dictated by: Tarik Israel MD The radiology attending physician has personally reviewed this study, and had reviewed and/or edited this written report and agrees with it. Electronically signed by: Mac Carr M.D., Ph.D us Theodore Gresham MD IMG US PROCEDURES Final Re sult * Surgical pathology (08/31/2022 11:03 AM CDT) Tissue (Liver, Biopsy, Needle Medical) 08/31/2022 11:03 AM CDT Narrative PATHOLOGY [facility] - 09/04/2022 5:22 PM CDT EPIC results best viewed via link to PDF [facility] [place] [address] Note to Patients: This report may contain [...] SURGICAL PATHOLOGY REPORT FINAL Patient Name: ?? TOMMY LARESIFEANYI Gibbs Gender: ??M : ??1995 (Age: 27) Address: ??[address] [place] [id number] Hospital #: ??[id number] Taken:08/31/2022 Received:08/31/2022 Reported: 09/04/2022 Patient Type: [facility] Ancillary ?? Service: Laboratory Location: [facility] Physician(s): ??Mac J. Hoegger, MNeptali Gresham M.D. Guero Colunga D.O. Diagnosis: Liver, allograft, random, needle core biopsy ? - Sinusoidal lymphocyte predominent infiltrate associated centrivenular and periportal hepatocyte dropout and interface activity ??(see comment) ? - Diffuse increase in sinusoidal fibrosis with focal bridging fibrosis (confirmed by trichrome stain) ? - Parenchymal nodularity not entirely associated with fibrosis (confirmed by reticulin stain) ? - CMV immunostain is negative ? - EBV by JAKOB-RASHAUN is negative 09/01/2022 07:43 By this signature, I attest that the above diagnosis is based upon my personal examination of the slides(and/or other material indicated in the diagnosis). Naresh Mcgrath M.D. Report Electronically Reviewed and Signed Out By ??Naresh Mcgrath M.D. 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 ??These overall findings show evidence of chronic hepatitis with an unusual sinusoidal pattern of lymphocytic infiltrate associated with periportal interface activity and zone 3 hepatocyte dropout. While there is no classic features of acute cellular rejection present in this biopsy, these findings may represent a sinusoidal pattern of T-cell mediated rejection in the setting of CVID. ??Differential diagnosis includes lymphocyte predominent autoimmune hepatitis. No evidence of EBV-assocaited hepatitis or EBV+ PTLD. Of note, there is also increased parenchymal nodularity identified on reticulin stain, above what could be atributed to increased sinusoidal fibrosis. This could represent early/evolving nodular regenerative hyperplasia, which is a known form of CVID-related liver disease. Microscopic Description and Comment: Microscopic examination substantiates the above cited diagnosis. No significant macrovesicular steatosis. No viral inclusions or infectious microorganisms. No significant stainable iron. No evidence for [id number] deficiency by PAS-D stain. This case was shown at GI/Liver pathology consensus conference on 09/02/2022, with agreement and discussed at clinical liver conference on 09/02/2022. ?? Michael ScottD. History: The patient is a 27-year-old male presenting for history of liver transplant. ??LFT elevation. ??Operative Procedure: Random liver core biopsy. Specimen(s) Received: A: Random liver core biopsy Gross Description: Received in formalin, labeled with the patient? ? s identifiers and random liver core biopsy and consists of one brown core(s) of soft tissue measuring 3.0 cm in length x 0.1 cm in diameter. ??Labeled A1. Jar 0. ?? elsw/08/31/2022 15:59 PA(s): Kristine Ley By this signature, I attest that the above diagnosis is based upon my personal examination of the slides(and/or other material). Addenda/Procedures The performance characteristics of some immunohistochemical stains, fluorescence in-situ hybridization tests and immunophenotyping by flow cytometry cited in this report (if any) were determined by the Surgical Pathology and Flow Cytometry Departments at [facility] as part of an ongoing quality assurance nurse program and in compliance with federally mandated [...] Surgical Pathology and Flow Cytometry Departments of [facility]. ??It has not been cleared or approved by the U. S. Food and Drug Administration. IMAGES AND SCANNED DOCUMENTS, IF INCLUDED, ONLY VIEWABLE IN PDF VERSION OF REPORT Theodore Gresham MD LAB PATHOLOGY ORDERABLES F inal Result PATHOLOGY [facility] [address] Floor [place], [place] [phone] documented in this encounter Visit Diagnoses Diagnosis History of liver transplant (CMS/HCC) (HCC) Liver replaced by transplant LFT elevation documented in this encounter Administered Medications Inactive Administered Medications - up to 3 most recent administrations Medication Order MAR Action Action Date Dose Rate Site fentaNYL (SUBLIMAZE) preservative free injection intravenous, Code/trauma/sedation medication, Starting on Wed08/31/22 at 1107 Given 08/31/2022 11:07 AM CDT 25 mcg lidocaine PF (XYLOCAINE) 10 mg/mL (1 %) preservative free injection Code/trauma/sedation medication, Starting on Wed08/31/22 at 1110, Intra-Procedure (IR), Indications: Administration of Local AnesthesiaIndications:Administ ration of Local Anesthesia Given 08/31/2022 11:10 AM CDT 10 mL sodium chloride 0.9% flush 10 mL 10 mL, intra-catheter, Once, On Wed08/31/22 at 1015, For 1 dose, Recovery (IR), Prior to heparin to decannulate port. Given 08/31/2022 9:47 AM CDT 10 mL sodium chloride 0.9% infusion 30 mL/hr, intravenous, Continuous, Starting on Wed08/31/22 at 1015, Pre-Procedure (IR) New Bag 08/31/2022 9:48 AM CDT 30 mL/hr 30 mL/hr documented in this encounter Orders Medications Ordered That John ht Not Have Been Administered Count Last Ordered Date First Ordered Date Carrier Fluids for Secondary Infusion - 0.9% Sodium Chloride 1 08/31/2022 heparin 100 unit/mL injection 500 Units 1 1 sodium chloride 0.9% flush 0.5-20 mL 2 08/03 sodium chloride 0.9% flush 10-20 mL 1 08/31 sodium chloride 0.9% flush 5-10 mL 1 2021 Discharge Count Last Ordered Date First Orde red Date DISCHARGE PATIENT 1 08/31/2022 documented in this encounter Care Teams Lead Painter Relationship Specialty Start Date End Date Guero Colunga DO PCP - General Internal Medicine 03/22/19 04/18/23 Amber Montesinos, SHAILESH [employer] Executive Transplant 11/17/19 Jil Duncan MD Consulting Physician Infectious Diseases 01/10/20 Anita Gillespie MD Medical Oncologist/Tube Turner Medical Oncology 10/07/20 Tabitha Hurley MD [address] [facility] 14 [place], [place] [id number] Consulting Physician Rheumatology 10/22/21 Massiel Gastelum MD [address] [place], [place] [id number] Consulting Physician Otolaryngology 08/27/22 documented as of this encounter
--- OUTSIDE RECORDS SUMMARY | 2024-10-28 06:11 | XMS_ITS | Encounter Summary ---
Author Organization [facility] Address [address] [place] [address] Phone Care Team Providers Care Divine Healer Name Role Phone Cristine Guero ZEPEDA Primary Care Provider [phone] Amber Montesinos RN Unavailable [phone] Jil Duncan MD Unavailable [phone] Anita Gillespie MD Unavailable [phone] Tabitha Hurley MD Unavailable [phone] Massiel Gastelum MD Unavailable [phone] Encounter Details Date Type Department Care Team (Late st Contact Info) Description 12/24/2022 Orders Only [facility] ENT [address] [facility] Medical Office Building [address] [place] [phone] Massiel Gastelum MD [address] [facility] [address] [place] [address] Social History Tobacco Use Types [...] file 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 Gender Identity Not on file Sexual Orientation Straight 08/22/2021 9: 23 AM CDT documented as of this encounter Ordered Prescriptions Prescription Sig Dispense Quantity Refills Last Filled Start Date End Date levoFLOXacin (Levaquin) 500 mg tablet Take 1 tablet (500 mg total) by mouth daily for 10 days 10 tablet 12/24/2022 01/03/2023 documented in this encounter Plan of Treatment Scheduled Procedures Name Priority Associated Diagnoses Date/Ti me COLONOSCOPY Encounter for screening for colorectal cancer in high risk patient Family history of rectal cancer documented as of this encounter Visit Diagnoses Not on filedocumented in this encounter Care Teams Divine Healer Relationship Specialty Start Date End Date Guero Colunga DO PCP - General Internal Medicine 03/22/19 04/18/23 Amber Montesinos RN Airframe And Powerplant Technician Transplant 11/17/19 Jil Duncan MD Consulting Physician Infectious Diseases 01/10/20 Anita Gillespie MD Medical Oncologist/Power Electronics Engineer Medical Oncology 10/07/20 Tabitha Hurley MD [address] [facility] 14 [place], [place] [id number] Consulting Physician Rheumatology 10/22/21 Massiel Gastelum MD [address] [place] [address] Consulting Physician Otolaryngology 08/27/22 documented as of this encounter
--- OUTSIDE RECORDS SUMMARY | 2024-10-28 06:11 | XMS_ITS | Encounter Summary ---
Author Organization [facility] Healthcare Address [address] [place] [address] Care Team Providers Care Corn Press Operator Name Role Phone Guero Colunga Primary Care Provider [phone] Amber Montesinos RN Unavailable [phone] Jil Duncan MD Unavailable [phone] Anita Gillespie MD Unavailable [phone] Tabitha Hurley MD Unavailable [phone] Reason for Referral * Diagnostic Imaging (Routine) - Closed Specialty Diagnoses / Procedures Referred By Contac t Referred To Contact Radiology Diagnoses History of liver transplant (CMS/HCC) (HCC) LFT elevation Procedures US Guided Biopsy Liver Consult to Radiology for Biopsy Theodore Gresham MD [address] [facility] [address] [place] [address] Phone: tel: fax: [address] [phone] Referral ID Status Reason Start Date Expiration Date Visits Re quested Visits Authorized [id number] Closed 08/11/2022 09/10/2023 1 1 Encounter Details Date Type Department Care Team (Late st Contact Info) Description 08/11/[address] 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 Patient scheduled for random liver biopsy 08/31/22 at 10:30am. Instructions that were sent to coordinator by radiology sent to patient via [employer]. He is aware to repeat coags prior to his biopsy. Labs faxed to [phone] documented in this encounter Plan of Treatment Scheduled Orders Name Type Priority Associated Diagnoses Orde r Schedule aPTT Lab Routine History of liver transplant (CMS/HCC) (HCC) Pre-procedure lab exam Expected: 08/22/2022 (Approximate), Expires: 09/04/2022 Protime-INR Lab Routine History of liver transplant (CMS/HCC) (HCC) Pre-procedure lab exam Expected: 08/22/2022 (Approximate), Expires: 09/04/2022 Scheduled Procedures Name Priority Associated Diagnoses Date/Ti me COLONOSCOPY Encounter for screening for colorectal cancer in high risk patient Family history of rectal cancer documented as of this encounter Results * US Guided Biopsy [...] placed in formalin and submitted to the awning installer service for delivery to Surgical Pathology. The biopsy tract was embolized with Gelfoam pledgets. The patient's skin was cleaned and dressed. The patient tolerated the entire procedure well without immediate complications. Dr. Mac Carr M.D., Ph.D, the attending radiologist, was present from the beginning to the end of the procedure. Drs. Tarik Israel and Mac Carr performed the biopsy. Dr. Tarik Israel (limited radiology technician) personally participated in sonographic imaging of this [...] placed in formalin and submitted to the awning installer service for delivery to Surgical Pathology. The biopsy tract was embolized with Gelfoam pledgets. The patient's skin was cleaned and dressed. The patient tolerated the entire procedure well without immediate complications. Dr. Mac Carr M.D., Ph.D, the attending radiologist, was present from the beginning to the end of the procedure. Drs. Tarik Israel and Mac Carr performed the biopsy. Dr. Tarik Israel (limited radiology technician) personally participated in sonographic imaging of this patient. IMPRESSION: 1. Successful ultrasound-guided core needle biopsy of transplant liver parenchyma. 2. Please see separate Surgical Pathology results for final interpretation. Dictated by: Tarik Israel MD The radiology attending physician has personally reviewed this study, and had reviewed and/or edited this written report and agrees with it. Electronically signed by: Mac Carr M.D., Ph.D Theodore Gresham MD IMG US PROCEDURES Final Re sult documented in this encounter Visit Diagnoses Diagnosis History of liver transplant (CMS/HCC) (HCC)- Primary Liver replaced by transplant LFT elevation Pre-procedure lab exam Pre-procedural laboratory examination History of liver transplant (CMS/HCC) (HCC) Liver replaced by transplant LFT elevation documented in this encounter Care Teams Corn Press Operator Relationship Specialty Start Date End Date Guero Colunga DO PCP - General Internal Medicine 03/22/19 04/18/23 Amber Montesinos, SHAILESH Buffing Turner And Counter Transplant 11/17/19 Jil Duncan MD Consulting Physician Infectious Diseases 01/10/20 Anita Gillespie MD Medical Oncologist/Hard Rock Miner Blasting Medical Oncology 10/07/20 Tabitha Hurley MD [address] [facility] 14 [place] [address] Consulting Physician Rheumatology 10/22/21 documented as of this encounter
--- OUTSIDE RECORDS SUMMARY | 2024-10-28 06:11 | XMS_ITS | Encounter Summary ---
Author Organization [facility] Healthcare Address [address] [place] [address] Care Team Providers Care Marble Mason Name Role Phone Guero Colunga Primary Care Provider [phone] Amber Montesinos RN Unavailable [phone] Jil Duncan MD Unavailable [phone] Anita Gillespie MD Unavailable [phone] Tabitha Hurley MD Unavailable [phone] Massiel Gastelum MD Unavailable [phone] Encounter Details Date Type Department Care Team (Late st Contact Info) Description 11/14/2022 Orders Only [facility] Health Information Management [address] [place] [address] Scanning, Provider Social History Tobacco Use Types [...] on file 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 Gender Identity Not on file Sexual Orientation Straight 08/22/2021 9: 23 AM CDT documented as of this encounter Plan of Treatment Scheduled Procedures Name Priority Associated Diagnoses Date/Ti me COLONOSCOPY Encounter for screening for colorectal cancer in high risk patient Family history of rectal cancer documented as of this encounter Procedures Procedure Name Priority Date/Time Associated Diagnosis Comments SCAN - LABS 11/14/2022 10:26 AM COUNTER HAND documented in this encounter Results * SCAN - LABS (11/14/2022 10:26 AM COUNTER HAND) us Provider Scanning Edited Result - Final documented in this encounter Visit Diagnoses Not on filedocumented in this encounter Care Teams Marble Mason Relationship Specialty Start Date End Date Guero Colunga DO PCP - General Internal Medicine 03/22/19 04/18/23 Amber Montesinos RN Tape Editor Transplant 11/17/19 Jil Duncan MD Consulting Physician Infectious Diseases 01/10/20 Anita Gillespie MD Medical Oncologist/Antisqueak Filler Medical Oncology 10/07/20 Tabitha Hurley MD [address] [place] [address] Consulting Physician Rheumatology 10/22/21 Massiel Gastelum MD [address] [place] [address] Consulting Physician Otolaryngology 08/27/22 documented as of this encounter
--- OUTSIDE RECORDS SUMMARY | 2024-10-28 06:11 | XMS_ITS | Encounter Summary ---
Author Organization [facility] Healthcare Address [address] [place] [address] Care Team Providers Care Health Plan Manager Name Role Phone Guero Colunga Primary Care Provider [phone] Amber Montesinos RN Unavailable [phone] Jil Duncan MD Unavailable [phone] Anita Gillespie MD Unavailable [phone] Tabitha Hurley MD Unavailable [phone] Massiel Gastelum MD Unavailable [phone] Encounter Details Date Type Department Care Team (Late st Contact Info) Description 08/27/2022 Telephone [facility] Transplant Liver [address] 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 Gastelum's office. Patient would not need coags done for his procedure tomorrow. Mom writing via [employer] patient is going to the lab this evening after work. Reviewed to call the chronometer adjuster RN for any issues at the lab. documented in this encounter Plan of Treatment Scheduled Procedures Name Priority Associated Diagnoses Date/Ti me COLONOSCOPY Encounter for screening for colorectal cancer in high risk patient Family history of rectal cancer documented as of this encounter Visit Diagnoses Not on filedocumented in this encounter Care Teams Health Plan Manager Relationship Specialty Start Date End Date Guero Colunga DO PCP - General Internal Medicine 03/22/19 04/18/23 Amber Montesinos, SHAILESH Digital Photographic Printer Transplant 11/17/19 Jil Duncan MD Consulting Physician Infectious Diseases 01/10/20 Anita Gillespie MD Medical Oncologist/Room Inspector Medical Oncology 10/07/20 Tabitha Hurley MD [address] [facility] 14 [place] [address] Consulting Physician Rheumatology 10/22/21 Massiel Gastelum MD [address] [place] [address] Consulting Physician Otolaryngology 08/27/22 documented as of this encounter
--- OUTSIDE RECORDS SUMMARY | 2024-10-28 06:11 | XMS_ITS | Encounter Summary ---
Author Organization [facility] Address [address] [place] [address] Phone Care Team Providers Care Vice President Pharmacy Name Role Phone Guero Colunga DO Primary Care Provider [phone] Amber Montesinos RN Unavailable [phone] Jil Duncan MD Unavailable [phone] Anita Gillespie MD Unavailable [phone] Tabitha Hurley MD Unavailable [phone] Encounter Details Date Type Department Care Team (Late st Contact Info) Description 07/24/2022 Telephone [facility] ENT [address] [facility] Medical Office Building [address] [address] Massiel Gastelum MD [address] [facility] [address] [place] [address] Social History Tobacco Use Types Packs/Day Years [...] on file 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 If telehealth, then needs zoom. And if he would like a friend/family member there (his mom is often involved), then can be done. OK to let him know that the CT is not better, some areas are worse than they were previously. Thanks - AO ----- Message ----- From: Marlene Moss RMA Sent: 07/22/2022 3:42 PM CDT To: Massiel Gastelum MD Subject: FW: Sinus infection and appointment Did you ever speak with anyone about his sinus CT done 07/09? ----- Message ----- From: Beka Nichols Sent: 07/22/2022 3:28 PM CDT To: Fernando Cooley Ent Getachew Ortiz Subject: Sinus infection and appointment Just wondering if anyone was going to get back with us regarding that sinus ultrasound, because Beka has been coughing again. So I???m assuming that his sinus is draining into his throat. documented in this encounter Plan of Treatment Scheduled Procedures Name Priority Associated Diagnoses Date/Ti me COLONOSCOPY Encounter for screening for colorectal cancer in high risk patient Family history of rectal cancer documented as of this encounter Visit Diagnoses Not on filedocumented in this encounter Care Teams Vice President Pharmacy Relationship Specialty Start Date End Date Guero Colunga DO PCP - General Internal Medicine 03/22/19 04/18/23 Amber Montesinos, RN Food Service Aide Transplant 11/17/19 Jil Duncan MD Consulting Physician Infectious Diseases 01/10/20 Anita Gillespie MD Medical Oncologist/Amortization Schedule Clerk Medical Oncology 10/07/20 Tabitha Hurley MD [address] [facility] 14 [place] [address] Consulting Physician Rheumatology 10/22/21 documented as of this encounter
--- OUTSIDE RECORDS SUMMARY | 2024-10-28 06:11 | XMS_ITS | Encounter Summary ---
Author Organization [facility] Healthcare Address [address] [place] [address] Care Team Providers Care Food Products Sales Representative Name Role Phone Guero Colunga DO Primary Care Provider [phone] Amber Montesinos RN Unavailable [phone] Jil Duncan MD Unavailable [phone] Anita Gillespie MD Unavailable [phone] Tabitha Hurley MD Unavailable [phone] Reason for Visit * Auth/Cert Specialty Diagnoses / Procedures Referred By Contac t Referred To Contact Diagnoses PTLD (post-transplant lymphoproliferative disorder) (HCC) Procedures N/A Referral ID Status Reason Start Date Expiration Date Visits Re quested Visits Authorized [id number] 1 1 Encounter Details Date Type Department Care Team (Latest Contact Info) Description 07/09/2022 8:07 PM CDT - 07/12/2022 3:30 PM CDT Hospital Encounter [address] [phone] Anita Gillespie MD [address] [facility] [address] [place] [address] Dehydration (Primary Dx); Pneumonia of right middle lobe due to infectious organism; Elevated LFTs; Acute recurrent maxillary sinusitis; History of liver transplant (CMS/HCC) (HCC); Fever, unspecified fever cause Discharge Disposition: Discharge to home or self [...] on file 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 Gender Identity Not on file Sexual Orientation Straight 08/22/2021 9: 23 AM CDT documented as of this encounter Last Filed Vital Signs Vital Sign Reading Time Taken Comments Blood Pressure 102/47 07/12/2022 12:09 PM CDT Pulse 70 07/12/2022 12:09 PM CDT Temperature 36.7 ??C (98.1 ??F) 07/12/2022 12:09 PM C DT Respiratory Rate 16 07/12/2022 12:09 PM CDT Oxygen Saturation 96% 07/12/2022 12:09 PM CDT Inhaled Oxygen Concentration - - Weight 58 kg (127 lb 14.6 oz) 07/11/2022 7:40 AM CDT Height 172.7 cm (5' 7.99 ) 07/11/2022 7:40 AM CD T Body Mass Index 19.45 07/11/2022 7:40 AM CDT documented in this encounter Discharge Summaries * Tony Baca MD - 07/12/2022 3:30 PM CDT Inpatient Discharge Summary BRIEF OVERVIEW Admitting Provider: Anita Gillespie MD Discharge Provider: No att. 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 DETAILS OF HOSPITAL STAY Presenting Problem/History of Present Illness: Mr. Nichols is a pleasant 27 year old man with a history of refractory ITP s/p splenectomy 2012, autoimmune hepatitis s/p orthotopic liver transplant 03/30/2009, c/b PTLD (c-Myc, EBV +) s/p R-CHOP x 1 (2016), DA-EPOCH-R x 5 (09/2017-12/2017) with IT MTX w/ C3 10/2017, achieving CR in 12/2017, persistent quantifiable CMV viremia since 06/2019 (currently on maribavir), who presents with fevers, chills, night sweats and URI symptoms. He reports over the past 2 weeks he has developed a cough productive of greenish sputum and dyspneaon exertion. He had a drenching night sweat last Wednesday night followed by low grade fevers and chills on a daily basis. He also reports fatigue and lethargy. He also reports a new nodule on his right thigh, which appeared about a month ago. It is nontender, but is red and hard to the touch. He denies any insect bites that he is aware of and only one other very small soft tissue nodule on his right chest. Also, he was recently seen in our ER for a kidney stone on 07/05, which passed spontaneously with hydration the following day. His symptoms of flank pain have completed remitted. At the time, he did have a CT abdomen which showed mild right hydroureteronephrosis with apparent obstructing stone near the right ureterovesicular junction, unchanged RP, mesenteric and parasesophageal LAD, as well as a possible RML pneumonia. He was seen today in ID clinic for his CMV viremia and given the myriad of his symptoms, was planned for a direct admission although there were no available beds. [facility] was [facility] today, and found to be positive for both adenovirus and entero/rhinovirus. LFTs were elevated but mildly decreased (including bilirubin) compared to labs on 07/05. CT sinus and chest showed Mucosal thickening has progressed within the sphenoid sinuses and right maxillary sinus and improved within the frontal sinuses and ethmoid air cells. No noncontrast CT evidence of complication. Consolidation and adjacent subcentimeter nodules in the right middle lobe, partially imaged on CT dated 07/05/2022 and likely representing pneumonia. Blood cultures were drawn, he was given a dose of cefepime and admitted for further workup. Hospital Course: #Rhino/enterovirus and Adenovirus: +. Predominantly pharyngitis/upper respiratory symptoms, with chills, low grade fevers and night sweats at home ~1- [address] chest with evidence of RML consolidation, may represent concomitant bacterial pneumonia. Pt had no 02 requirement but was treated w/ cefepime- >augmentin total 7days abx and azithymocin x3d. Pt bcx, fungal cx, and adeno pcr was negative. Pt also received his monthyl IVIG while inpatient. Subcutaneous nodule of right lower extremity Indurated soft tissue nodule with overlying erythema, mildly tender. First noticed ~1 month ago. Denies any arthopod bites or known exposure or trauma. Derm consulted and biopsy results at d/c was pending but time of d/c summary was inconclusive showing inflammation that is likely necrosis but could r/o a malignant process. Derm to f/u Acute on Chronic Sinusitis: Mucosal thickening has progressed within the sphenoid sinuses and right maxillary sinus and improved within the frontal sinuses and ethmoid air cells. ENT consulted and recommended conservative mgt with rinses. History of liver transplant (CMS/HCC) (HCC) 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 Followed by Dr. Gresham. Cont tacro 0.5 mg every other day. Liver was following peripherally. 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 S/p RCHOP x1 and DA-EPOCH-R x5 (completed 12/2017), IT-MTX C3 only d/t intracranial hypotension, w/ post-C2 WA, CR at end-of treatment. No e/o recurrence though course complicated by multiple episodes of progressive annika opathy w/ spontaneous resolution.Followed by Dr. Gillespie, on observation. Med Onc consulted inpatient 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HCC) CMV DNA positivity since at least April 2017 at varying levels; since 06/2019 CMV 2-3 logIU/ml on Valganciclovir 900mg BID. Has been on multiple different therapies including PO valganciclovir, PO letermovir, IV ganciclovir, and PO maribavir with improved CMV levels but continued low level viremia. Transplant ID consulted, CMV PCR 17K inpatient, maribavir resistant panel pending,. Continued home maribavir Active Issues Requiring Follow-up: Maribavir resistant testing F/u of Soft tissue biopsy Test Results Pending at Discharge: Pending Labs Order Current Status Filamentous fungus culture, blood Blood Preliminary result Operative Procedures Performed: Other Procedures: Pertinent Test Results: CMV 17,400 Discharge Details Physical Exam at Discharge: Discharge Condition: good Pulse: 70 Resp: 16 BP: 102/47 Temp: 36.7 ??C (98.1 ??F) Weight: 58 kg (127 lb 14.6 oz) Pertinent Exam Findings at Discharge: NAD Discharge Disposition: Discharge to home or self care Code Status at Discharge: Full Discharge Instructions: Diet Instructions Adult Discharge Diet Diet Type: Return to previous diet Other Instructions Call provider for: Temperature -Temperature greater than [...] headache, visual disturbances, weakness and speech changes Discharge Medications: Current Medications TAKE these medications tacrolimus 0.5 mg immediate-release capsule Take 1 capsule (0.5 mg total) by mouth every other day Commonly known as: PROGRAF This medication is very important: It prevents organ rejection. budesonide 0.5 mg/2 mL nebulizer solution Administer 2 mL (0.5 mg total) into each nostril daily Mix 4ml into 240ml nasal saline and perform nasal rinse Commonly known as: Pulmicort traZODone 50 mg tablet Take 1 tablet (50 mg total) by mouth nightly Commonly known as: DESYREL ursodioL 300 mg capsule Take 2 capsules (600 mg total) by mouth daily with dinner Commonly known as: ACTIGALL ASK your doctor about these medications amoxicillin-clavulanate 875-125 mg per tablet Take 1 tablet by mouth 2 (two) times a day for 5 days For: Pneumonia, Community Acquired, Skin/Soft Tissue Infection Commonly known as: AUGMENTIN Ask about: Should I take this medication? Outpatient Follow-Up: Future Appointments Date Time Provider Department Center 09/30/2022 8:00 AM [facility] 09/30/2022 9:00 AM LAB, CAM 7 ONC ONC LAB [facility] 09/30/2022 9:30 AM Anita Gillespie MD ONC CAM[facility] 10/22/2022 8:40 AM Massiel Gastelum MD [facility] 11A [facility] Contact Information for Follow-ups Guero Colunga DO Specialty: Internal Medicine, Pediatrics Relationship: PCP - General [address] [place] [address] Next Steps: Follow up documented in this encounter Medications at Time of Discharge amoxicillin-clav ulanate (AUGMENTIN) 875-125 mg per tabletIndication s:Pneumonia, Community Acquired,Skin/So ft Tissue Infection Take 1 tablet by mouth 2 (two) times a day for 5 days 10 tablet 07/12/2022 2 budesonide (Pulmicort) 0.5 mg/2 mL nebulizer solution Administer 2 mL (0.5 mg total) into each nostril daily Mix 4ml into 240ml nasal saline and perform nasal rinse 180 mL 5 02/18/2022 3 maribavir 200 mg tablet Take 2 tablets (400 mg total) by mouth 2 (two) times a day 28 tablet 1 03/09/2022 2 tacrolimus (PROGRAF) 0.5 mg immediate-releas e capsule Take 1 capsule (0.5 mg total) by mouth every other day 05/25/2022 3 traZODone (DESYREL) 50 mg tablet Take 1 tablet (50 mg total) by mouth nightly 30 tablet 2 03/05/2022 3 ursodioL (ACTIGALL) 300 mg capsule Take 2 capsules (600 mg total) by mouth daily with dinner 180 capsule 3 10/02/2021 3 documented as of this encounter Ordered Prescriptions Prescription Sig Dispense Quantity Refills Last Filled Start Date End Date amoxicillin-clavul anate (AUGMENTIN) 875-125 mg per tabletIndications: Pneumonia, Community Acquired,Skin/Soft Tissue Infection Take 1 tablet by mouth 2 (two) times a day for 5 days 10 tablet 07/12/2022 07/17/2022 documented in this encounter Discharge Disposition Disposition Code Departure Means Destination Discharge to home or self care documented in this encounter Progress Notes * Tony Baca MD - 07/12/2022 12:59 PM CDT Daily Progress Note Division of Hospital Medicine Name: Beka Nichols Today: July 12, 2022 : 1995 Age: 27 y.o. male Admit: 07/09/2022 Bed: [place] [id number] Subjective Chief complaint: rhino/adeno Interval History: NAEO. Pt feels better will d/c today on oral abx. Maribariv resistance panel was sent previously and pending. Objective Medications: Scheduled: amoxicillin-clavulanate, 875 mg of amoxicillin, oral, BID enoxaparin, 40 mg, subcutaneous, Daily-2100 fluticasone propionate, 2 spray, each nostril, Daily heparin flush (porcine), 5 mL, intra-catheter, BID heparin flush (porcine), 5 mL, intra-catheter, Q12H PIPPA maribavir, 400 mg, oral, BID sodium chloride 0.9%, 10 mL, intra-catheter, Q12H PIPPA sodium chloride-sodium bicarbonate, 1 packet, each nostril, Daily tacrolimus, 0.5 mg, oral, Every other day ursodioL, 600 mg, oral, Daily with dinner Infusions: sodium chloride 0.9%, 125 mL/hr, Last Rate: 125 mL/hr (07/11/22 1248) sodium chloride 0.9%, 30 mL/hr PRN: acetaminophen aluminum & magnesium gtgqpxdpt-zyqzfgyallq-huvvldaksjqpqay-lidocaine bacitracin-polymyxin B camphor-menthoL heparin flush (porcine) heparin flush (porcine) loperamide magnesium sulfate magnesium sulfate lubricant potassium chloride ER prochlorperazine OR prochlorperazine sodium chloride sodium chloride 0.9% sodium chloride 0.9% sodium phosphate - potassium phosphate white petrolatum-mineral oiL Vitals: 24hr Min/Max: Temp Min: 36.5 ??C (97.7 ??F) Max: 36.8 ??C (98.2 ??F) Pulse Min: 70 Max: 73 BP Min: 97/54 Max: 112/64 Resp Min: 16 Max: 18 SpO2 Min: 95 % Max: 98 % Most Recent: Vitals: 07/12/22 1209 BP: 102/47 Pulse: 70 Resp: 16 Temp: 36.7 ??C (98.1 ??F) SpO2: 96% Intake/Output Summary (Last 24 hours) at 07/12/2022 1259 Last data filed at 07/12/2022 1209 Gross per 24 hour Intake 3170 ml Output 3450 ml Net -280 ml Physical Exam Vitals reviewed. Constitutional: Appearance: He is not ill-appearing. HENT: Head: Normocephalic. Nose: Nose normal. Eyes: Conjunctiva/sclera: Conjunctivae normal. Cardiovascular: Rate and Rhythm: Normal rate and regular rhythm. Pulses: Normal pulses. Pulmonary: Effort: Pulmonary effort is normal. Abdominal: General: Abdomen is flat. Musculoskeletal: General: No swelling. Normal range of motion. Cervical back: Normal range of motion. Skin: General: Skin is warm and dry. Comments: R firm thigh nodule Neurological: General: No focal deficit present. Mental Status: He is alert and oriented to person, place, and time. Psychiatric: Mood and Affect: Mood normal. Behavior: Behavior normal. Lab/Diagnostic Review: Recent Results (from the past 36 hour(s)) Cytomegalovirus (CMV) DNA PCR, quantitative Blood Collection Time: 07/11/22 9:37 AM Specimen: Blood Result Value Ref Range CMV DNA Detected (A) CMV DNA IU/mL 17,400 (Critical) IUnits/mL CMV DNA log IU/mL 4.24 log IUnits/mL Critical Result Callback Chemistry Collection Time: 07/11/22 9:37 AM Result Value Ref Range Date Notified [id number] Time Notified 0405 TestName See Comment Called/Read Back Mary Arevalo Credentials RN Called By [facility] CBC with auto differential Collection Time: 07/12/22 12:33 AM Result Value Ref Range WBC 11.8 (H) 3.8 - 9.9 K/cumm Hgb 11.1 (L) 13.0 - 17.5 g/dL Hct 30.7 (L) 38.9 - 50.3 % Plt 151 150 - 400 K/cumm MPV 11.8 9.1 - 12.3 fL RBC 3.11 (L) 4.30 - 5.80 M/cumm MCV 98.7 (H) 81.3 - 96.4 fL MCH 35.7 (H) 27.1 - 33.3 pg MCHC 36.2 (H) 32.3 - 35.7 g/dL RDW CV 16.9 (H) 11.1 - 14.9 % RDW SD 60.4 (H) 35.7 - 48.1 fL NRBC abs 0.00 0.00 - 0.01 K/cumm Magnesium Collection Time: 07/12/22 12:33 AM Result Value Ref Range Magnesium 1.4 1.4 - 2.5 mg/dL Phosphorus Collection Time: 07/12/22 12:33 AM Result Value Ref Range Phosphorus, pl 3.6 2.3 - 4.5 mg/dL Basic metabolic panel Collection Time: 07/12/22 12:33 AM Result Value Ref Range Sodium 141 135 - 145 mmol/L Potassium, pl 4.0 3.3 - 4.9 mmol/L Chloride 110 97 - 110 mmol/L CO2 24 22 - 32 mmol/L Anion gap 7 2 - 15 mmol/L BUN 9 8 - 25 mg/dL Creatinine 0.69 (L) 0.80 - 1.30 mg/dL Glucose 88 70 - 199 mg/dL Calcium 7.9 (L) 8.5 - 10.3 mg/dL Differential, auto Collection Time: 07/12/22 12:33 AM Result Value Ref Range Neutrophil abs 3.3 1.7 - 6.5 K/cumm Imm gran abs 0.0 0.0 - 0.1 K/cumm Lymphocyte abs 5.0 (H) 0.8 - 3.3 K/cumm Monocyte abs 2.0 (H) 0.2 - 0.8 K/cumm Eosinophil abs 1.4 (H) 0.0 - 0.5 K/cumm Basophil abs 0.1 0.0 - 0.1 K/cumm Neutrophil pct 27.5 % Imm gran pct 0.3 % Lymphocyte pct 42.6 % Monocyte pct 16.9 % Eosinophil pct 12.0 % Basophil pct 0.7 % eGFR Collection Time: 07/12/22 12:33 AM Result Value Ref Range eGFR >90 90 - 130 mL/min/1.73 m2 I have reviewed the laboratory results. Imaging Results: US Lower Extremity Right Limited Narrative: EXAMINATION: US LOWER EXTREMITY RIGHT LIMITED HISTORY: 27-year-old male with approximately 1 month of palpable painful right thigh lump , assess for abscess COMPARISON: None available FINDINGS: Targeted sonographic evaluation of the palpable area of pain, at the right mid anterior thigh, demonstrated focal focal superficial soft tissue edema with mild associated hyperemia, without drainable fluid collection. No sonographically evident retained foreign body. Impression: IMPRESSION: 1. Findings consistent with cellulitis at the lump at the anterior right thigh. 2. No drainable fluid collection. 3. No sonographically evident retained foreign body. Electronically signed by: Tess Crouch MD I have independently reviewed and interpreted as above Community acquired pneumonia Adenovirus+, Rhinovirus/enterovirus +. Predominantly pharyngitis/upper respiratory symptoms, with chills, low grade fevers and night sweats at home ~1- [address] chest with evidence of RML consolidation, may represent concomitant bacterial pneumonia. - Supportive care for viral URI - Blood and fungal cxs NGTD, adenovirus pcr pending - Cefepime->augmentin, azithromycin x3 Subcutaneous nodule of right lower extremity Indurated soft tissue nodule with overlying erythema, mildly tender. First noticed ~1 month ago. Denies any arthopod bites or known exposure or trauma. -derm consulted and biopsy results pending Elevated LFTs Recently w/ elevated LFTs, now appear down-trending. 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 Followed by Dr. Gresham. 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 S/p RCHOP x1 and DA-EPOCH-R x5 (completed 12/2017), IT-MTX C3 only d/t intracranial hypotension, w/ post-C2 WA, CR at end-of treatment. No e/o recurrence though course complicated by multiple episodes of progressive annika opathy w/ spontaneous resolution. -Followed by Dr. Gillespie, on observation - Med Onc consult inpatient 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HCC) CMV DNA positivity since at least April [...] rule out CMV - Transplant ID consulted, CMV PCR 17K, maribavir resistant panel pending, -Continue home maribavir Tony Baca MD [facility] Medicine [phone] * Tony Baca MD - 07/11/2022 12:23 PM CDT Daily Progress Note Division of Hospital Medicine Name: Beka Nichols Today: July 11, 2022 : 1995 Age: 27 y.o. male Admit: 07/09/2022 Bed: [id number] Subjective Chief complaint: rhino/adeno Interval History: NAEO. Pt feels better today. Afebrile. ID saw and left recs. Labs are pending. Will start neilmed today per ENT. Giving IVIG today. Objective Medications: Scheduled: cefepime, 1,000 mg, intravenous, Q8H PIPPA enoxaparin, 40 mg, subcutaneous, Daily-2100 fluticasone propionate, 2 spray, each nostril, Daily guaiFENesin-dextromethorphan ER, 1 tablet, oral, BID heparin flush (porcine), 5 mL, intra-catheter, BID heparin flush (porcine), 5 mL, intra-catheter, Q12H PIPPA maribavir, 400 mg, oral, BID sodium chloride 0.9%, 10 mL, intra-catheter, Q12H PIPPA sodium chloride-sodium bicarbonate, 1 packet, each nostril, Daily tacrolimus, 0.5 mg, oral, Every other day ursodioL, 600 mg, oral, Daily with dinner Infusions: sodium chloride 0.9%, 125 mL/hr, Last Rate: 125 mL/hr (07/09/222231) sodium chloride 0.9%, 30 mL/hr PRN: acetaminophen aluminum & magnesium svfejrpzk-zejeqjzophq-hhrrpgdxnjsgmcw-lidocaine bacitracin-polymyxin B camphor-menthoL heparin flush (porcine) heparin flush (porcine) loperamide magnesium sulfate magnesium sulfate lubricant potassium chloride ER prochlorperazine OR prochlorperazine sodium chloride sodium chloride 0.9% sodium chloride 0.9% sodium phosphate - potassium phosphate white petrolatum-mineral oiL Vitals: 24hr Min/Max: Temp Min: 36.5 ??C (97.7 ??F) Max: 36.8 ??C (98.2 ??F) Pulse Min: 70 Max: 79 BP Min: 99/57 Max: 116/64 Resp Min: 16 Max: 18 SpO2 Min: 95 % Max: 98 % Most Recent: Vitals: 07/11/22 1204 BP: 110/60 Pulse: 71 Resp: 16 Temp: 36.5 ??C (97.7 ??F) SpO2: 98% Intake/Output Summary (Last 24 hours) at 07/11/2022 1223 Last data filed at 07/11/2022 1205 Gross per 24 hour Intake 6996 ml Output 5825 ml Net 1171 ml Physical Exam Vitals reviewed. Constitutional: Appearance: He is not ill-appearing. HENT: Head: Normocephalic. Nose: Nose normal. Eyes: Conjunctiva/sclera: Conjunctivae normal. Cardiovascular: Rate and Rhythm: Normal rate and regular rhythm. Pulses: Normal pulses. Pulmonary: Effort: Pulmonary effort is normal. Abdominal: General: Abdomen is flat. Musculoskeletal: General: No swelling. Normal range of motion. Cervical back: Normal range of motion. Skin: General: Skin is warm and dry. Comments: R firm thigh nodule Neurological: General: No focal deficit present. Mental Status: He is alert and oriented to person, place, and time. Psychiatric: Mood and Affect: Mood normal. Behavior: Behavior normal. Lab/Diagnostic Review: Recent Results (from the past 36 hour(s)) Magnesium Collection Time: 07/10/22 12:47 AM Result Value Ref Range Magnesium 1.5 1.4 - 2.5 mg/dL Phosphorus Collection Time: 07/10/22 12:47 AM Result Value Ref Range Phosphorus, pl 4.2 2.3 - 4.5 mg/dL Type and screen Collection Time: 07/10/22 12:47 AM Result Value Ref Range Carol, indirect Negative ABO Rh A Positive Comprehensive metabolic panel Collection Time: 07/10/22 12:47 AM Result Value Ref Range Sodium 138 135 - 145 mmol/L Potassium, pl 4.5 3.3 - 4.9 mmol/L Chloride 108 97 - 110 mmol/L CO2 25 22 - 32 mmol/L Anion gap 5 2 - 15 mmol/L BUN 10 8 - 25 mg/dL Creatinine 0.77 (L) 0.80 - 1.30 mg/dL Glucose 81 70 - 199 mg/dL Calcium 9.0 8.5 - 10.3 mg/dL Bilirubin, total 2.0 (H) 0.1 - 1.2 mg/dL Protein, pl 5.4 (L) 6.5 - 8.5 g/dL Albumin 3.0 (L) 3.5 - 5.0 g/dL Alk phos 285 (H) 40 - 130 Units/L ALT 76 (H) 7 - 55 Units/L AST 99 (H) 10 - 50 Units/L Uric acid Collection Time: 07/10/22 12:47 AM Result Value Ref Range Uric acid 4.1 3.0 - 8.0 mg/dL Lactate dehydrogenase (LD) Collection Time: 07/10/22 12:47 AM Result Value Ref Range Lactate dehydrogenase (LDH) 403 (H) 100 - 250 Units/L aPTT Collection Time: 07/10/22 12:47 AM Result Value Ref Range aPTT 38 (H) 27 - 37 sec Protime-INR Collection Time: 07/10/22 12:47 AM Result Value Ref Range PT 12.4 9.2 - 13.5 sec INR 1.1 0.9 - 1.2 eGFR Collection Time: 07/10/22 12:47 AM Result Value Ref Range eGFR >90 90 - 130 mL/min/1.73 m2 CBC with auto differential Collection Time: 07/10/22 2:30 AM Result Value Ref Range WBC 14.8 (H) 3.8 - 9.9 K/cumm Hgb 12.0 (L) 13.0 - 17.5 g/dL Hct 33.4 (L) 38.9 - 50.3 % Plt 184 150 - 400 K/cumm MPV 11.8 9.1 - 12.3 fL RBC 3.38 (L) 4.30 - 5.80 M/cumm MCV 98.8 (H) 81.3 - 96.4 fL MCH 35.5 (H) 27.1 - 33.3 pg MCHC 35.9 (H) 32.3 - 35.7 g/dL RDW CV 16.7 (H) 11.1 - 14.9 % RDW SD 60.2 (H) 35.7 - 48.1 fL NRBC abs 0.00 0.00 - 0.01 K/cumm Differential, auto Collection Time: 07/10/22 2:30 AM Result Value Ref Range Neutrophil abs 5.0 1.7 - 6.5 K/cumm Imm gran abs 0.1 0.0 - 0.1 K/cumm Lymphocyte abs 5.7 (H) 0.8 - 3.3 K/cumm Monocyte abs 2.2 (H) 0.2 - 0.8 K/cumm Eosinophil abs 1.8 (H) 0.0 - 0.5 K/cumm Basophil abs 0.1 0.0 - 0.1 K/cumm Neutrophil pct 33.8 % Imm gran pct 0.3 % Lymphocyte pct 38.2 % Monocyte pct 15.0 % Eosinophil pct 12.2 % Basophil pct 0.5 % Aerobic culture and gram stain Sputum, induced Sputum (Cytology) Collection Time: 07/10/22 6:57 AM Specimen: Sputum (Cytology); Sputum, induced Result Value Ref Range Direct Specimen Exam Stain: Abundant squamous epithelial cells seen indicating excessive oropharyngeal contamination. Culture will not be processed further. Please submit another specimen. Smear results called to and read back by: Lisandra Sinha RN [phone] on 07/10/2022 08:51:28 by: Robel Del Angel MT Report Final Report: This is the final report. Immunoglobulin profile Collection Time: 07/10/22 8:52 AM Result Value Ref Range Immunoglobulin G 805.0 700.0 - 1,600.0 mg/dL Immunoglobulin A <50.0 (L) 70.0 - 400.0 mg/dL Immunoglobulin M <25.0 (L) 40.0 - 230.0 mg/dL CBC with auto differential Collection Time: 07/11/22 12:29 AM Result Value Ref Range WBC 13.9 (H) 3.8 - 9.9 K/cumm Hgb 11.4 (L) 13.0 - 17.5 g/dL Hct 31.9 (L) 38.9 - 50.3 % Plt 160 150 - 400 K/cumm MPV 11.9 9.1 - 12.3 fL RBC 3.20 (L) 4.30 - 5.80 M/cumm MCV 99.7 (H) 81.3 - 96.4 fL MCH 35.6 (H) 27.1 - 33.3 pg MCHC 35.7 32.3 - 35.7 g/dL RDW CV 16.5 (H) 11.1 - 14.9 % RDW SD 60.4 (H) 35.7 - 48.1 fL NRBC abs 0.00 0.00 - 0.01 K/cumm Magnesium Collection Time: 07/11/22 12:29 AM Result Value Ref Range Magnesium 1.9 1.4 - 2.5 mg/dL Phosphorus Collection Time: 07/11/22 12:29 AM Result Value Ref Range Phosphorus, pl 3.9 2.3 - 4.5 mg/dL Basic metabolic panel Collection Time: 07/11/22 12:29 AM Result Value Ref Range Sodium 142 135 - 145 mmol/L Potassium, pl 4.2 3.3 - 4.9 mmol/L Chloride 110 97 - 110 mmol/L CO2 26 22 - 32 mmol/L Anion gap 6 2 - 15 mmol/L BUN 12 8 - 25 mg/dL Creatinine 0.75 (L) 0.80 - 1.30 mg/dL Glucose 94 70 - 199 mg/dL Calcium 8.1 (L) 8.5 - 10.3 mg/dL Differential, auto Collection Time: 07/11/22 12:29 AM Result Value Ref Range Neutrophil abs 4.6 1.7 - 6.5 K/cumm Imm gran abs 0.1 0.0 - 0.1 K/cumm Lymphocyte abs 5.3 (H) 0.8 - 3.3 K/cumm Monocyte abs 2.3 (H) 0.2 - 0.8 K/cumm Eosinophil abs 1.6 (H) 0.0 - 0.5 K/cumm Basophil abs 0.1 0.0 - 0.1 K/cumm Neutrophil pct 32.7 % Imm gran pct 0.4 % Lymphocyte pct 38.4 % Monocyte pct 16.2 % Eosinophil pct 11.7 % Basophil pct 0.6 % eGFR Collection Time: 07/11/22 12:29 AM Result Value Ref Range eGFR >90 90 - 130 mL/min/1.73 m2 I have reviewed the laboratory results. Imaging Results: US Lower Extremity Right Limited Narrative: EXAMINATION: US LOWER EXTREMITY RIGHT LIMITED HISTORY: 27-year-old male with approximately 1 month of palpable painful right thigh lump , assess for abscess COMPARISON: None available FINDINGS: Targeted sonographic evaluation of the palpable area of pain, at the right mid anterior thigh, demonstrated focal focal superficial soft tissue edema with mild associated hyperemia, without drainable fluid collection. No sonographically evident retained foreign body. Impression: IMPRESSION: 1. Findings consistent with cellulitis at the lump at the anterior right thigh. 2. No drainable fluid collection. 3. No sonographically evident retained foreign body. Electronically signed by: Tess Crouch MD I have independently reviewed and interpreted as above Community acquired pneumonia Adenovirus+, Rhinovirus/enterovirus +. Predominantly pharyngitis/upper respiratory symptoms, with chills, low grade fevers and night sweats at home ~1- [address] chest with evidence of RML consolidation, may represent concomitant bacterial pneumonia. - Supportive care for viral URI - Blood and fungal cxs NGTD, adenovirus pcr pending - Cefepime, azithromycin x3 Subcutaneous nodule of right lower extremity Indurated soft tissue nodule with overlying erythema, mildly tender. First noticed ~1 month ago. Denies any arthopod bites or known exposure or trauma. -derm consulted and biopsy results pending Elevated LFTs Recently w/ elevated LFTs, now appear down-trending. 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 Followed by Dr. Gresham. 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 S/p RCHOP x1 and DA-EPOCH-R x5 (completed 12/2017), IT-MTX C3 only d/t intracranial hypotension, w/ post-C2 WA, CR at end-of treatment. No e/o recurrence though course complicated by multiple episodes of progressive annika opathy w/ spontaneous resolution. -Followed by Dr. Gillespie, on observation - Med Onc consult inpatient 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HCC) CMV DNA positivity since at least April [...] cannot rule out CMV - Transplant ID consulted. Getting repeat CMV PCR on admission was 12, maribavir resistant panel. -Continue home maribavir Tony Baca MD [facility] Medicine [phone] * Eugenio Gotti MD - 07/11/2022 10:40 AM CDT Otolaryngology - Head & Neck Surgery Daily Progress Subjective Chief complaint: No chief complaint on file. 27M with history of ITP s/p splenectomy, autoimmune hepatitis s/p liver transplant, PTLD, chronic rhinosinusitis who is currently admitted for fever. Patient endorses two weeks of worsening nasal congestion, cough, colored nasal drainage, fevers, and night sweats. No facial pain, pressure, or anosmia. He improved on doxycycline but symptoms recurred shortly after stopping this course. At presentation CT scan concerning for RML pneumonia and interval progression of sinus disease in the right maxillary and sphenoid sinus. +Rhino/entero, +adenovirus, +CMV viremia. Exam: Face non-tender to palpation. Rigid scope showing edematous nasal mucosa with thick whitish secretions. Interval History / Hospital Course: AFVSS, on RA, wbc: 13.9 (14.8) Denies diplopia, epistaxis, internet specialist exam normal. Objective VITALS, 24HR MIN/MAX: Temp Min: 36.6 ??C (97.9 ??F) Max: 36.8 ??C (98.2 ??F) Pulse Min: 71 Max: 79 BP Min: 99/57 Max: 116/64 Resp Min: 16 Max: 16 SpO2 Min: 95 % Max: 98 % I&O I/O last 2 completed shifts: In: 7476 [P.O.:2520; I.V.:4956] Out: 5225 [Urine:5225] Net IO Since Admission: 611 mL [07/11/22 1041] Output by Drain (mL) 07/09/22 07 - 07/09/22 18507/09/22 190 - 07/10/22 0659 07/10/22 07 - 07/10/22 1859 07/10/22 1900 - 07/11/22 0659 07/11/22 0700 - 07/11/22 1041 Patient has no LDAs of requested type attached. Scheduled Continuous As needed cefepime, 1,000 mg, intravenous, Q8H PIPPA enoxaparin, 40 mg, subcutaneous, Daily-2100 fluticasone propionate, 2 spray, each nostril, Daily guaiFENesin-dextromethorphan ER, 1 tablet, oral, BID heparin flush (porcine), 5 mL, intra-catheter, BID heparin flush (porcine), 5 mL, intra-catheter, Q12H PIPPA maribavir, 400 mg, oral, BID sodium chloride 0.9%, 10 mL, intra-catheter, Q12H PIPPA tacrolimus, 0.5 mg, oral, Every other day ursodioL, 600 mg, oral, Daily with dinner sodium chloride 0.9%, 125 mL/hr, Last Rate: 125 mL/hr (07/09/22 2232) sodium chloride 0.9%, 30 mL/hr acetaminophen, 650 mg aluminum & magnesium dksmsvfvz-ggiljqmhumq-dyjdyturbpmyucc-lidocaine, 15 mL bacitracin-polymyxin B, 1 application camphor-menthoL, heparin flush (porcine), 2-5 mL heparin flush (porcine), 2-5 mL loperamide, 2 mg magnesium sulfate, 4 g, Stopped at 07/10/22 1530 magnesium sulfate, 6 g lubricant, 2 drop potassium chloride ER, 40 mEq prochlorperazine, 5 mg OR prochlorperazine, 5 mg sodium chloride, 2 spray sodium chloride 0.9%, 10-20 mL sodium chloride 0.9%, 30 mL/hr sodium phosphate - potassium phosphate, 500 mg white petrolatum-mineral oiL, Physical Exam: Vitals: 07/11/22 0025 07/11/22 0324 07/11/22 0740 07/11/22 1029 BP: 101/53 99/57 109/56 BP Location: Right arm Right arm Patient Position: Sitting Lying Pulse: 73 71 77 Resp: 16 16 16 Temp: 36.8 ??C (98.2 ??F) 36.8 ??C (98.2 ??F) 36.6 ??C (97.9 ??F) TempSrc: Oral Oral SpO2: 97% 97% 98% Weight: 58 kg (127 lb 14.6 oz) Height: 172.7 cm (5' 7.99 ) General: Awake, NAD Head: NC, AT. Face is nontender to palpation. Eyes: Sclera white, no injection or chemosis, no periorbital edema Ears: Auricles not deformed, no drainage Nose: No nasal bleeding, no flaring Mouth: No OC/OP bleeding, tolerating secretions, MMM Neck: Soft and flat CV: RRR Pulm: NLB, no stridor, no stertor Skin: WWP Neuro: OE, R, FC; AOx3; CN intact; MAEWx4 Lab/Radiology/Diagnostic Review: LABS 24 HOURS: Lab Results Component Value Date WBC 13.9 (H) 07/11/2022 HGB 11.4 (L) 07/11/2022 HCT 31.9 (L) 07/11/2022 LABPLAT 160 07/11/2022 CHOL 135 06/12/2020 TRIG 139 06/12/2020 HDL 31 (L) 06/12/2020 ALT 76 (H) 07/10/2022 AST 99 (H) 07/10/2022 SODIUM 142 07/11/2022 POTASSIUM 4.2 07/11/2022 CHLORIDE 110 07/11/2022 BUNSER 12 07/11/2022 CO2 26 07/11/2022 CREATININE 0.75 (L) 07/11/2022 GLUCOSE 94 07/11/2022 CALCIUM 8.1 (L) 07/11/2022 PHOS 3.9 07/11/2022 MAGNESIUM 1.9 07/11/2022 TSH 5.42 (H) 09/16/2020 PT 12.4 07/10/2022 INR 1.1 07/10/2022 Lab Results Component Value Date MICROBIOLOGY Final Report: This is the final report. 07/10/2022 MICROBIOLOGY Preliminary Report: No growth to date. 07/09/2022 MICROBIOLOGY Preliminary Report: No growth to date. 07/09/2022 MICROBIOLOGY Preliminary Report: No growth of fungus to date 07/09/2022 DIRECTEXAM 07/10/2022 Stain: Abundant squamous epithelial cells seen indicating excessive oropharyngeal contamination. Culture will not be processed further. Please submit another specimen. Smear results called to and read back by: Lisandra Sinha RN [phone] on 07/10/2022 08:51:28 by: Robel Del Angel MT DIRECTEXAM 12/25/2021 Stain: Few polymorphonuclear leukocytes seen. Few Gram Negative Bacilli DIRECTEXAM 01/04/2019 Stain: Few squamous epithelial cells seen. Abundant polymorphonuclear leukocytes seen. Moderate Mixed bacterial ellie seen on gram stain. US Lower Extremity Right Limited Narrative: EXAMINATION: US LOWER EXTREMITY RIGHT LIMITED HISTORY: 27-year-old male with approximately 1 month of palpable painful right thigh lump , assess for abscess COMPARISON: None available FINDINGS: Targeted sonographic evaluation of the palpable area of pain, at the right mid anterior thigh, demonstrated focal focal superficial soft tissue edema with mild associated hyperemia, without drainable fluid collection. No sonographically evident retained foreign body. Impression: IMPRESSION: 1. Findings consistent with cellulitis at the lump at the anterior right thigh. 2. No drainable fluid collection. 3. No sonographically evident retained foreign body. 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 male with history of chronic sinusitis who is currently admitted for URI symptoms includingcough, fever, chills, nasal drainage. +Rhino/enterovirus, +adenovirus, +CMV viremia. Afebrile sinceadmission. CT imaging concerning for interval progression of paranasal sinus disease, most notably in the right maxillary sinus and sphenoid sinuses. -No acute ENT intervention -Continue antibiotics and supportive care -Budesonide irrigations BID if patient will tolerate. If patient cannot tolerate due to history of dryness with these irrigations, can try neilmed saline irrigations - ENT will continue to follow up Eugenio Maurice MD Otolaryngology - Head & Neck Surgery For questions please reach out to: (backup Wed-Wed Days): See [facility] for [facility] Head & Neck (pw: [id number]) Weekends & After 6pm: ENT Consult * Araidne Hilton, [facility] - 07/10/2022 9:07 PM CDT Patient's home medication supply has been approved by the pharmacy. Medication can be administered to the patient. * Tony Baca MD - 07/10/2022 4:59 PM CDT Daily Progress Note Division of Hospital Medicine Name: Beka Nichols Today: July 10, 2022 : 1995 Age: 27 y.o. male Admit: 07/09/2022 Bed: [id number] Subjective Chief complaint: rhino/adeno Interval History: pt said overall he feels better today. Onc, ENT, Derm was consulted and liver made aware. Objective Medications: Scheduled: azithromycin, 500 mg, oral, Daily cefepime, 1,000 mg, intravenous, Q8H PIPPA enoxaparin, 40 mg, subcutaneous, Daily-2100 fluticasone propionate, 2 spray, each nostril, Daily guaiFENesin-dextromethorphan ER, 1 tablet, oral, BID heparin flush (porcine), 5 mL, intra-catheter, BID heparin flush (porcine), 5 mL, intra-catheter, Q12H PIPPA heparin flush (porcine), 5 mL, intra-catheter, Once maribavir, 400 mg, oral, BID sodium chloride 0.9%, 10 mL, intra-catheter, Once sodium chloride 0.9%, 10 mL, intra-catheter, Q12H PIPPA tacrolimus, 0.5 mg, oral, Every other day ursodioL, 600 mg, oral, Daily with dinner Infusions: sodium chloride 0.9%, 125 mL/hr, Last Rate: 125 mL/hr (07/09/222231) sodium chloride 0.9%, 30 mL/hr PRN: acetaminophen aluminum & magnesium irzqcpcru-pcrvnoxeruw-hgchpdfkokaiycy-lidocaine bacitracin-polymyxin B camphor-menthoL heparin flush (porcine) heparin flush (porcine) loperamide magnesium sulfate magnesium sulfate lubricant potassium chloride ER prochlorperazine OR prochlorperazine sodium chloride sodium chloride 0.9% sodium chloride 0.9% sodium phosphate - potassium phosphate white petrolatum-mineral oiL Vitals: 24hr Min/Max: Temp Min: 36.7 ??C (98.1 ??F) Max: 36.9 ??C (98.4 ??F) Pulse Min: 72 Max: 88 BP Min: 102/53 Max: 115/61 Resp Min: 16 Max: 18 SpO2 Min: 95 % Max: 100 % Most Recent: Vitals: 07/10/22 1630 BP: Pulse: Resp: 16 Temp: SpO2: Intake/Output Summary (Last 24 hours) at 07/10/2022 1659 Last data filed at 07/10/2022 1625 Gross per 24 hour Intake 1280 ml Output 3600 ml Net -2320 ml Physical Exam Vitals reviewed. Constitutional: Appearance: He is not ill-appearing. HENT: Head: Normocephalic. Nose: Nose normal. Eyes: Conjunctiva/sclera: Conjunctivae normal. Cardiovascular: Rate and Rhythm: Normal rate and regular rhythm. Pulses: Normal pulses. Pulmonary: Effort: Pulmonary effort is normal. Abdominal: General: Abdomen is flat. Musculoskeletal: General: No swelling. Normal range of motion. Cervical back: Normal range of motion. Skin: General: Skin is warm and dry. Comments: R firm thigh nodule Neurological: General: No focal deficit present. Mental Status: He is alert and oriented to person, place, and time. Psychiatric: Mood and Affect: Mood normal. Behavior: Behavior normal. Lab/Diagnostic Review: Recent Results (from the past 36 hour(s)) CBC with auto differential Collection Time: 07/09/22 12:48 PM Result Value Ref Range WBC 14.1 (H) 3.8 - 9.9 K/cumm Hgb 11.2 (L) 13.0 - 17.5 g/dL Hct 31.9 (L) 38.9 - 50.3 % Plt 228 150 - 400 K/cumm MPV 12.8 (H) 9.1 - 12.3 fL RBC 3.24 (L) 4.30 - 5.80 M/cumm MCV 98.5 (H) 81.3 - 96.4 fL MCH 34.6 (H) 27.1 - 33.3 pg MCHC 35.1 32.3 - 35.7 g/dL RDW CV 16.8 (H) 11.1 - 14.9 % RDW SD 60.0 (H) 35.7 - 48.1 fL NRBC abs 0.00 0.00 - 0.01 K/cumm Comprehensive metabolic panel Collection Time: 07/09/22 12:48 PM Result Value Ref Range Sodium 139 135 - 145 mmol/L Potassium, pl See Comment 3.3 - 4.9 mmol/L Chloride 108 97 - 110 mmol/L CO2 24 22 - 32 mmol/L Anion gap 7 2 - 15 mmol/L BUN 11 8 - 25 mg/dL Creatinine 0.71 (L) 0.80 - 1.30 mg/dL Glucose 134 70 - 199 mg/dL Calcium 8.8 8.5 - 10.3 mg/dL Bilirubin, total 2.1 (H) 0.1 - 1.2 mg/dL Protein, pl 5.8 (L) 6.5 - 8.5 g/dL Albumin 3.4 (L) 3.5 - 5.0 g/dL Alk phos 278 (H) 40 - 130 Units/L ALT See Comment 7 - 55 Units/L AST See Comment 10 - 50 Units/L Magnesium Collection Time: 07/09/22 12:48 PM Result Value Ref Range Magnesium 1.5 1.4 - 2.5 mg/dL Phosphorus Collection Time: 07/09/22 12:48 PM Result Value Ref Range Phosphorus, pl 4.1 2.3 - 4.5 mg/dL Type and screen Collection Time: 07/09/22 12:48 PM Result Value Ref Range Carol, indirect Negative ABO Rh A Positive Urinalysis reflex to microscopic and culture Urine, clean voided Collection Time: 07/09/22 12:48 PM Specimen: Urine, clean voided Result Value Ref Range Color, ur Yellow Yellow Clarity, ur Clear Clear Specific gravity, ur 1.015 1.003 - 1.030 pH, urine 6.5 Protein, ur ql Negative Negative Glucose, ur ql Negative Negative Ketones, ur Negative Negative Bilirubin, ur Negative Negative Blood, ur Negative Negative Urobilinogen, ur >=8.0 (A) <2.0 mg/dL Nitrite, ur Negative Negative Leukocyte esterase, ur Negative Negative UA reflex comment Reflex conditions for microscopic UA and culture not met. Blood culture Blood Left Collection Time: 07/09/22 12:48 PM Specimen: Left; Blood Result Value Ref Range Report Preliminary Report: No growth to date. Blood culture Blood Right Collection Time: 07/09/22 12:48 PM Specimen: Right; Blood Result Value Ref Range Report Preliminary Report: No growth to date. Filamentous fungus culture, blood Blood Collection Time: 07/09/22 12:48 PM Specimen: Blood Result Value Ref Range Report Preliminary Report: No growth of fungus to date Cytomegalovirus (CMV) DNA PCR, quantitative Blood Collection Time: 07/09/22 12:48 PM Specimen: Blood Result Value Ref Range CMV DNA Detected (A) CMV DNA IU/mL 12,000 (Critical) IUnits/mL CMV DNA log IU/mL 4.08 log IUnits/mL Cryptococcal Antigen, Serum Blood Collection Time: 07/09/22 12:48 PM Specimen: Blood Result Value Ref Range Cryptococcus ag, Serum Negative Negative Differential, auto Collection Time: 07/09/22 12:48 PM Result Value Ref Range Neutrophil abs 5.4 1.7 - 6.5 K/cumm Imm gran abs 0.0 0.0 - 0.1 K/cumm Lymphocyte abs 5.2 (H) 0.8 - 3.3 K/cumm Monocyte abs 2.0 (H) 0.2 - 0.8 K/cumm Eosinophil abs 1.4 (H) 0.0 - 0.5 K/cumm Basophil abs 0.1 0.0 - 0.1 K/cumm Neutrophil pct 38.2 % Imm gran pct 0.3 % Lymphocyte pct 36.8 % Monocyte pct 14.4 % Eosinophil pct 9.7 % Basophil pct 0.6 % eGFR Collection Time: 07/09/22 12:48 PM Result Value Ref Range eGFR >90 90 - 130 mL/min/1.73 m2 Critical Result Callback Chemistry Collection Time: 07/09/22 12:48 PM Result Value Ref Range Date Notified 20220709 Time Notified 2327 TestName See Comment Called/Read Back Beth Smith Credentials RN Called By [facility] POC Blood Gas and Chemistries, Arterial - Collection Time: 07/09/22 1:11 PM Result Value Ref Range Lactate, POC 2.0 0.7 - 2.2 mmol/L Respiratory pathogen panel Nasopharyngeal Collection Time: 07/09/22 1:16 PM Specimen: Nasopharyngeal Result Value Ref Range Influenza A RNA Not Detected Not Detected Influenza B RNA Not Detected Not Detected RSV RNA Not Detected Not Detected COVID-19 RNA Not Detected Not Detected Coronavirus 229E RNA Not Detected Not Detected Coronavirus HKU1 RNA Not Detected Not Detected Coronavirus NL63 RNA Not Detected Not Detected Coronavirus OC43 RNA Not Detected Not Detected Adenovirus DNA Detected (A) Not Detected Metapneumovirus RNA Not Detected Not [...] M. pneumoniae DNA Not Detected Not Detected Hepatic function panel Collection Time: 07/09/22 2:59 PM Result Value Ref Range Bilirubin, total 2.4 (H) 0.1 - 1.2 mg/dL Bilirubin, direct 1.5 (H) 0.1 - 0.3 mg/dL Protein, pl 5.8 (L) 6.5 - 8.5 g/dL Albumin 3.4 (L) 3.5 - 5.0 g/dL Alk phos 312 (H) 40 - 130 Units/L ALT 84 (H) 7 - 55 Units/L AST 102 (H) 10 - 50 Units/L Magnesium Collection Time: 07/10/22 12:47 AM Result Value Ref Range Magnesium 1.5 1.4 - 2.5 mg/dL Phosphorus Collection Time: 07/10/22 12:47 AM Result Value Ref Range Phosphorus, pl 4.2 2.3 - 4.5 mg/dL Type and screen Collection Time: 07/10/22 12:47 AM Result Value Ref Range Carol, indirect Negative ABO Rh A Positive Comprehensive metabolic panel Collection Time: 07/10/22 12:47 AM Result Value Ref Range Sodium 138 135 - 145 mmol/L Potassium, pl 4.5 3.3 - 4.9 mmol/L Chloride 108 97 - 110 mmol/L CO2 25 22 - 32 mmol/L Anion gap 5 2 - 15 mmol/L BUN 10 8 - 25 mg/dL Creatinine 0.77 (L) 0.80 - 1.30 mg/dL Glucose 81 70 - 199 mg/dL Calcium 9.0 8.5 - 10.3 mg/dL Bilirubin, total 2.0 (H) 0.1 - 1.2 mg/dL Protein, pl 5.4 (L) 6.5 - 8.5 g/dL Albumin 3.0 (L) 3.5 - 5.0 g/dL Alk phos 285 (H) 40 - 130 Units/L ALT 76 (H) 7 - 55 Units/L AST 99 (H) 10 - 50 Units/L Uric acid Collection Time: 07/10/22 12:47 AM Result Value Ref Range Uric acid 4.1 3.0 - 8.0 mg/dL Lactate dehydrogenase (LD) Collection Time: 07/10/22 12:47 AM Result Value Ref Range Lactate dehydrogenase (LDH) 403 (H) 100 - 250 Units/L aPTT Collection Time: 07/10/22 12:47 AM Result Value Ref Range aPTT 38 (H) 27 - 37 sec Protime-INR Collection Time: 07/10/22 12:47 AM Result Value Ref Range PT 12.4 9.2 - 13.5 sec INR 1.1 0.9 - 1.2 eGFR Collection Time: 07/10/22 12:47 AM Result Value Ref Range eGFR >90 90 - 130 mL/min/1.73 m2 CBC with auto differential Collection Time: 07/10/22 2:30 AM Result Value Ref Range WBC 14.8 (H) 3.8 - 9.9 K/cumm Hgb 12.0 (L) 13.0 - 17.5 g/dL Hct 33.4 (L) 38.9 - 50.3 % Plt 184 150 - 400 K/cumm MPV 11.8 9.1 - 12.3 fL RBC 3.38 (L) 4.30 - 5.80 M/cumm MCV 98.8 (H) 81.3 - 96.4 fL MCH 35.5 (H) 27.1 - 33.3 pg MCHC 35.9 (H) 32.3 - 35.7 g/dL RDW CV 16.7 (H) 11.1 - 14.9 % RDW SD 60.2 (H) 35.7 - 48.1 fL NRBC abs 0.00 0.00 - 0.01 K/cumm Differential, auto Collection Time: 07/10/22 2:30 AM Result Value Ref Range Neutrophil abs 5.0 1.7 - 6.5 K/cumm Imm gran abs 0.1 0.0 - 0.1 K/cumm Lymphocyte abs 5.7 (H) 0.8 - 3.3 K/cumm Monocyte abs 2.2 (H) 0.2 - 0.8 K/cumm Eosinophil abs 1.8 (H) 0.0 - 0.5 K/cumm Basophil abs 0.1 0.0 - 0.1 K/cumm Neutrophil pct 33.8 % Imm gran pct 0.3 % Lymphocyte pct 38.2 % Monocyte pct 15.0 % Eosinophil pct 12.2 % Basophil pct 0.5 % Aerobic culture and gram stain Sputum, induced Sputum (Cytology) Collection Time: 07/10/22 6:57 AM Specimen: Sputum (Cytology); Sputum, induced Result Value Ref Range Direct Specimen Exam Stain: Abundant squamous epithelial cells seen indicating excessive oropharyngeal contamination. Culture will not be processed further. Please submit another specimen. Smear results called to and read back by: Lisandra Sinha RN [phone] on 07/10/2022 08:51:28 by: Robel Del Angel MT Immunoglobulin profile Collection Time: 07/10/22 8:52 AM Result Value Ref Range Immunoglobulin G 805.0 700.0 - 1,600.0 mg/dL Immunoglobulin A <50.0 (L) 70.0 - 400.0 mg/dL Immunoglobulin M <25.0 (L) 40.0 - 230.0 mg/dL I have reviewed the laboratory results. Imaging Results: US Lower Extremity Right Limited Narrative: EXAMINATION: US LOWER EXTREMITY RIGHT LIMITED HISTORY: 27-year-old male with approximately 1 month of palpable painful right thigh lump , assess for abscess COMPARISON: None available FINDINGS: Targeted sonographic evaluation of the palpable area of pain, at the right mid anterior thigh, demonstrated focal focal superficial soft tissue edema with mild associated hyperemia, without drainable fluid collection. No sonographically evident retained foreign body. Impression: IMPRESSION: 1. Findings consistent with cellulitis at the lump at the anterior right thigh. 2. No drainable fluid collection. 3. No sonographically evident retained foreign body. Electronically signed by: Tess Crouch MD I have independently reviewed and interpreted as above Community acquired pneumonia Adenovirus+, Rhinovirus/enterovirus +. Predominantly pharyngitis/upper respiratory symptoms, with chills, low grade fevers and night sweats at home ~1- [address] chest with evidence of RML consolidation, may represent concomitant bacterial pneumonia. - Supportive care for viral URI - Blood cultures pending, fungal serologies pending - Induced sputum - Cefepime, azithromycin for CAP coverage. Can de-escalate pending blood cultures Subcutaneous nodule of right lower extremity Indurated soft tissue nodule with overlying erythema, mildly tender. First noticed ~1 month ago. Denies any arthopod bites or known exposure or trauma. -derm consulted and biopsy results pending Elevated LFTs Recently w/ elevated LFTs, now appear down-trending. 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 Followed by Dr. Gresham. 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 S/p RCHOP x1 and DA-EPOCH-R x5 (completed 12/2017), IT-MTX C3 only d/t intracranial hypotension, w/ post-C2 WA, CR at end-of treatment. No e/o recurrence though course complicated by multiple episodes of progressive annika opathy w/ spontaneous resolution. -Followed by Dr. Gillespie, on observation - Med Onc consult inpatient 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HCC) CMV DNA positivity since at least April [...] cultures, fungal serologies and CMV DNA PCR 12K Tony Baca MD [facility] [phone] * Daniel Garnett RN - 07/10/2022 12:50 PM CDT Interview completed 07/10/22 @ 1250 CM Initial Assessment Interview Note Information Obtained From: Patient (07/10/221249) Admission Source: Non Health Care Facility Point of Origin Impression: 27 Year old male with completed medical history including Immune Thrombocytopenia (ITP)admitted for further evaluation and treatment of fever, cough, chills, night sweats Plan Includes: Collaboration with patient/family, clinical team to identify discharge needs to assure interventions completed for safe discharge. Return patient to optimal level of self care post discharge. If the patient is recommended for home health services, CM will provide a list of HH agencies to the patient. Primary Source of Transportation: Does the patient need discharge transport arranged?: No (07/10/221249) Health Insurance Coverage: [facility] [employer] Prescription Coverage: Yes Pharmacy: [facility] Primary Care Provider: Guero Colunga DO, Onc: Dr. Anita Gillespie Prior to Admission: Primary Caregiver: Self Support System: Parent Support system contact info (name, phone, availablity): [phone], [phone] Home Care Services: No Durable Medical Equipment: None Living Arrangements: Parent Type of Residence: Private residence Steps in home? : Yes, Outside of home, Yes, Inside home Number of steps inside:: (1Level+basement) Number of steps outside:: 2 steps (07/10/221249) Potential discharge needs include: Home Health: Other (Comment) (To be determined) (07/10/221249) Dialysis: Behavioral Health Services: Behavioral Health Services: No (07/10/221249) Patient expects to be Discharged to: Private residence, (07/10/221249) Additional Information: None Patient's Identified Problem/Goal Problem: Ensure acute medical [...] Collaboration with patient, MD, direct care nurse, Family Services Assistant, and other members of the health care team to assure needed interventions completed. 2. Return patient to optimal level of self-care post discharge. 3. Unified Communications Architect will follow for Discharge Planning - interventions as needed 4. Anticipated level of care at discharge 5. Planned Discharge Disposition Based on a comprehensive family assessment, assistance with instrumental activities of daily livingafter discharge will be provided by parents Through the course of our work I determined that the parents possesses the skill and ability to provide and monitor the care of the patient when he returns home. parents has the capacity to provide/monitor/arrange for the care of the patient. Finally, we determined that parents has the knowledge ofavailable resources and that combining them with their existing resources will suffice to sustain and care for the patient when he returns home. The treatment team is aware of this information. All are in agreement with the aftercare plan. Daniel Garnett RN * Khushi Cosme NP - 07/09/2022 2:36 PM CDT OWLS triggered for bili of 2.1.See progress note for additional workup. * Khushi Cosme NP - 07/09/2022 12:30 PM CDT Oncology Medicine [facility] Chief Complaint: SOB, night sweats and sinus congestion Subjective HPI: Beka Nichols is a 27 y.o. male of with a history of a liver transplant in 1998 (autoimmune hepatitis) c/b PTLD (c-Myc, EBV +). He is s/p R- CHOP x 1, EPOCH x 5, IT MTX c/b intracranial hypotension and currently on observation and monthly IVIG subq injections. 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 He had a recent ED admission on 07/05 for right flank pain dx with mild right hydroureteronephrosis with nephrolithiasis. Additional hx includes bilateral pulmonary emboli in 10/19/2017, refractory ITP s/p splenectomy in 2012 and chronic sinusitis. Please see additional oncology history below. Arrives to the [facility] accompanied by mother via ambulation.Vital signs on presentation are BP 105/52 (BP Location: Right arm, Patient Position: Lying) Pulse 82 Temp 36.8 ??C (98.2 ??F) (Oral) Resp18 SpO2 100% Pt presents to the [facility] today w/ c/o cough,sob on exertion, night sweats and sinus congestion for about 2 weeks. His cough is productive yellow-green and has been getting worse.He is also experiencingsome left ear pain, sinus congestion with clear rhinorrhea and intermittent MANUEL. Has not tried any OTC meds for these symptoms. He reports noticing a new painless fixed lump in his right upper thighand a painless moveable nodule in the right middle chest. He was seen by the ED on 07/05 for a kidney stone which he passed at home after discharge and currently denies any flank pain. Denies fevers, chest pain, dyspnea, nausea, vomiting,constipation, dysuria, flank pain, and rash. Cancer Staging No matching staging information was found for the patient. Oncology History Overview Note PMH: 1. Liver transpant x 2 for acute liver failure (autoimmune hepatitis), 1998 2. 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) 10/2013 [...] Chemotherapy R-CHOP x 1, EPOCH-R x 5--> WA after C2 (5PS 4), CR p C6 [...] inclusions and small non-necrotizing granulomas, CMV positive Past Medical History: Diagnosis Date Cancer (CMS/HCC) [...] 5 YEARS N/A 12/26/2021 LIVER TRANSPLANT 1998 SPLENECTOMY US ABDOMEN COMPLETE W LIVER DOPPLER (C) Right 10/18/2018 US GUIDED BIOPSY LIVER N/A 10/18/2018 US GUIDED BIOPSY LIVER N/A 05/14/2020 US GUIDED BIOPSY LYMPH NODE SUPERFICIAL LEFT N/A 10/13/2019 US GUIDED BIOPSY LYMPH NODE SUPERFICIAL LEFT N/A 10/07/2021 No Known Allergies (Not in a hospital admission) Current Outpatient Medications: budesonide (Pulmicort) 0.5 mg/2 mL nebulizer solution, Administer 2 mL (0.5 mg total) into each nostril daily Mix 4ml into 240ml nasal saline and perform nasal rinse, Disp: 180 mL, Rfl: 5 maribavir 200 mg tablet, Take 2 tablets (400 mg total) by mouth 2 (two) times a day, Disp: 28 tablet, Rfl: 1 tacrolimus (PROGRAF) 0.5 mg immediate-release capsule, Take 1 capsule (0.5 mg total) by mouth everyother day, Disp: , Rfl: traZODone (DESYREL) 50 mg tablet, Take 1 tablet (50 mg total) by mouth nightly, Disp: 30 tablet, Rfl: 2 ursodioL (ACTIGALL) 300 mg capsule, Take 2 capsules (600 mg total) by mouth daily with dinner, Disp: 180 capsule, Rfl: 3 Current Facility-Administered Medications: cefepime (MAXIPIME) 1,000 mg/10 mL in sterile water (premix) 1,000 mg, 1,000 mg, intravenous, Q12H PIPPA, Khushi Cosme NP, Stopped at 07/09/22 1628 fluticasone propionate (FLONASE) 50 mcg/actuation nasal spray 2 spray, 2 spray, each nostril, Daily, Khushi Cosme NP, 2 spray at 07/09/22 1713 sodium chloride 0.9% infusion, 125 mL/hr, intravenous, Continuous, Khushi Cosme NP, Last Rate: 125 mL/hr at 07/09/22 1348, 125 mL/hr at 07/09/22 1348 Family History Problem Relation Age of Onset [...] Not Currently Sexual activity: Defer Alcohol Use: Unknown Frequency of Alcohol Consumption: 2-4 times a month Average Number of Drinks: 1 or 2 Frequency of Binge Drinking: Not on file Review of Systems: Review of Systems Constitutional: Positive for chills, diaphoresis and fatigue. Negative for activity change and fever. HENT: Positive for congestion, ear pain and sinus pressure. Negative for mouth sores, postnasal drip, rhinorrhea, sinus pain, sore throat and trouble swallowing. Eyes: Positive for redness. Respiratory: Positive for cough and shortness of breath. Negative for chest tightness. Cardiovascular: Positive for palpitations. Negative for chest pain and leg swelling. Gastrointestinal: Positive for diarrhea. Negative for abdominal pain, blood in stool, constipation,nausea, rectal pain and vomiting. Chronic diarrhea Endocrine: Negative. Genitourinary: Negative. Musculoskeletal: Negative. Skin: Negative. Allergic/Immunologic: Positive for immunocompromised state. Neurological: Negative. Hematological: Negative. Psychiatric/Behavioral: Negative. Objective Vitals: Vitals: 07/09/22 1231 07/09/22 1611 07/09/22 1944 BP: 117/74 110/67 105/52 BP Location: Right arm Right arm Patient Position: Sitting Lying Lying Pulse: 74 76 82 Resp: 18 18 18 Temp: 36.7 ??C (98.1 ??F) 36.7 ??C (98.1 ??F) 36.8 ??C (98.2 ??F) TempSrc: Oral Oral Oral SpO2: 98% 97% 100% Physical Exam: Physical Exam Constitutional: General: He is not in acute distress. Appearance: Normal appearance. HENT: Head: Normocephalic and atraumatic. Right Ear: External ear normal. Tympanic membrane is not erythematous. Left Ear: External ear normal. Tympanic membrane is erythematous. Nose: Congestion and rhinorrhea present. Mouth/Throat: Mouth: Mucous membranes are moist. Pharynx: No posterior oropharyngeal erythema. Eyes: Conjunctiva/sclera: Conjunctivae normal. Cardiovascular: Rate and Rhythm: Normal rate and regular rhythm. Pulses: Normal pulses. Heart sounds: Normal heart sounds. Pulmonary: Effort: Pulmonary effort is normal. Breath sounds: Examination of the right-middle field reveals decreased breath sounds. Examination of the right-lower field reveals decreased breath sounds. Decreased breath sounds present. Abdominal: General: Abdomen is flat. Palpations: Abdomen is soft. Tenderness: There is no abdominal tenderness. There is no right CVA tenderness, left CVA tendernessor guarding. Genitourinary: Comments: Deferred Musculoskeletal: General: Normal range of motion. Cervical back: Normal range of motion. Lymphadenopathy: Upper Body: Left upper body: No axillary adenopathy. Comments: Palpable lymph nodes in the superficial cervical, supraclavicular and axillary bilaterally. A moveable node Is also palpable in the right middle chest Skin: General: Skin is warm. Capillary Refill: Capillary refill takes less than 2 seconds. Comments: A non tender, fixed nodule to R anterior thigh with mild erythema. Neurological: General: No focal deficit present. Mental Status: He is alert and oriented to person, place, and time. Psychiatric: Mood and Affect: Mood normal. Behavior: Behavior normal. Lab/Radiology/Diagnostic Review: Laboratory review: Lab results in the last 12 hours: Recent Results (from the past 12 hour(s)) CBC with auto differential Collection Time: 07/09/22 12:48 PM Result Value Ref Range WBC 14.1 (H) 3.8 - 9.9 K/cumm Hgb 11.2 (L) 13.0 - 17.5 g/dL Hct 31.9 (L) 38.9 - 50.3 % Plt 228 150 - 400 K/cumm MPV 12.8 (H) 9.1 - 12.3 fL RBC 3.24 (L) 4.30 - 5.80 M/cumm MCV 98.5 (H) 81.3 - 96.4 fL MCH 34.6 (H) 27.1 - 33.3 pg MCHC 35.1 32.3 - 35.7 g/dL RDW CV 16.8 (H) 11.1 - 14.9 % RDW SD 60.0 (H) 35.7 - 48.1 fL NRBC abs 0.00 0.00 - 0.01 K/cumm Comprehensive metabolic panel Collection Time: 07/09/22 12:48 PM Result Value Ref Range Sodium 139 135 - 145 mmol/L Potassium, pl See Comment 3.3 - 4.9 mmol/L Chloride 108 97 - 110 mmol/L CO2 24 22 - 32 mmol/L Anion gap 7 2 - 15 mmol/L BUN 11 8 - 25 mg/dL Creatinine 0.71 (L) 0.80 - 1.30 mg/dL Glucose 134 70 - 199 mg/dL Calcium 8.8 8.5 - 10.3 mg/dL Bilirubin, total 2.1 (H) 0.1 - 1.2 mg/dL Protein, pl 5.8 (L) 6.5 - 8.5 g/dL Albumin 3.4 (L) 3.5 - 5.0 g/dL Alk phos 278 (H) 40 - 130 Units/L ALT See Comment 7 - 55 Units/L AST See Comment 10 - 50 Units/L Magnesium Collection Time: 07/09/22 12:48 PM Result Value Ref Range Magnesium 1.5 1.4 - 2.5 mg/dL Phosphorus Collection Time: 07/09/22 12:48 PM Result Value Ref Range Phosphorus, pl 4.1 2.3 - 4.5 mg/dL Type and screen Collection Time: 07/09/22 12:48 PM Result Value Ref Range Carol, indirect Negative ABO Rh A Positive Urinalysis reflex to microscopic and culture Urine, clean voided Collection Time: 07/09/22 12:48 PM Specimen: Urine, clean voided Result Value Ref Range Color, ur Yellow Yellow Clarity, ur Clear Clear Specific gravity, ur 1.015 1.003 - 1.030 pH, urine 6.5 Protein, ur ql Negative Negative Glucose, ur ql Negative Negative Ketones, ur Negative Negative Bilirubin, ur Negative Negative Blood, ur Negative Negative Urobilinogen, ur >=8.0 (A) <2.0 mg/dL Nitrite, ur Negative Negative Leukocyte esterase, ur Negative Negative UA reflex comment Reflex conditions for microscopic UA and culture not met. Differential, auto Collection Time: 07/09/22 12:48 PM Result Value Ref Range Neutrophil abs 5.4 1.7 - 6.5 K/cumm Imm gran abs 0.0 0.0 - 0.1 K/cumm Lymphocyte abs 5.2 (H) 0.8 - 3.3 K/cumm Monocyte abs 2.0 (H) 0.2 - 0.8 K/cumm Eosinophil abs 1.4 (H) 0.0 - 0.5 K/cumm Basophil abs 0.1 0.0 - 0.1 K/cumm Neutrophil pct 38.2 % Imm gran pct 0.3 % Lymphocyte pct 36.8 % Monocyte pct 14.4 % Eosinophil pct 9.7 % Basophil pct 0.6 % eGFR Collection Time: 07/09/22 12:48 PM Result Value Ref Range eGFR >90 90 - 130 mL/min/1.73 m2 POC Blood Gas and Chemistries, Arterial - Collection Time: 07/09/22 1:11 PM Result Value Ref Range Lactate, POC 2.0 0.7 - 2.2 mmol/L Respiratory pathogen panel Nasopharyngeal Collection Time: 07/09/22 1:16 PM Specimen: Nasopharyngeal Result Value Ref Range Influenza A RNA Not Detected Not Detected Influenza B RNA Not Detected Not Detected RSV RNA Not Detected Not Detected COVID-19 RNA Not Detected Not Detected Coronavirus 229E RNA Not Detected Not Detected Coronavirus HKU1 RNA Not Detected Not Detected Coronavirus NL63 RNA Not Detected Not Detected Coronavirus OC43 RNA Not Detected Not Detected Adenovirus DNA Detected (A) Not Detected Metapneumovirus RNA Not Detected Not [...] M. pneumoniae DNA Not Detected Not Detected Hepatic function panel Collection Time: 07/09/22 2:59 PM Result Value Ref Range Bilirubin, total 2.4 (H) 0.1 - 1.2 mg/dL Bilirubin, direct 1.5 (H) 0.1 - 0.3 mg/dL Protein, pl 5.8 (L) 6.5 - 8.5 g/dL Albumin 3.4 (L) 3.5 - 5.0 g/dL Alk phos 312 (H) 40 - 130 Units/L ALT 84 (H) 7 - 55 Units/L AST 102 (H) 10 - 50 Units/L Hospital Outpatient Visit on 07/09/2022 Component Date Value Ref Range Status WBC 07/09/2022 14.1 (A) 3.8 - 9.9 K/cumm Final Hgb 07/09/2022 11.2 (A) 13.0 - 17.5 g/dL Final Hct 07/09/2022 31.9 (A) 38.9 - 50.3 % Final Plt 07/09/2022 228 150 - 400 K/cumm Final MPV 07/09/2022 12.8 (A) 9.1 - 12.3 fL Final RBC 07/09/2022 3.24 (A) 4.30 - 5.80 M/cumm Final MCV 07/09/2022 98.5 (A) 81.3 - 96.4 fL Final MCH 07/09/2022 34.6 (A) 27.1 - 33.3 pg Final MCHC 07/09/2022 35.1 32.3 - 35.7 g/dL Final RDW CV 07/09/2022 16.8 (A) 11.1 - 14.9 % Final RDW SD 07/09/2022 60.0 (A) 35.7 - 48.1 fL Final NRBC abs 07/09/2022 0.00 0.00 - 0.01 K/cumm Final Sodium 07/09/2022 139 135 - 145 mmol/L Final Potassium, pl 07/09/2022 See Comment 3.3 - 4.9 mmol/L Final Credited; Hemolyzed Specimen Chloride 07/09/2022 108 97 - 110 mmol/L Final CO2 07/09/2022 24 22 - 32 mmol/L Final Anion gap 07/09/2022 7 2 - 15 mmol/L Final BUN 07/09/2022 11 8 - 25 mg/dL Final Creatinine 07/09/2022 0.71 (A) 0.80 - 1.30 mg/dL Final Glucose 07/09/2022 134 70 - 199 mg/dL Final Comment: Interpretive Data Fasting glucose >/= 126 mg/dl is diagnostic for diabetes. Fasting is defined as no caloric intake [...] classification and Diagnosis of Diabetes Diabetes Care 2017;40 (Suppl. 1):S11. Current interpretive data was last revised 2017. Calcium 07/09/2022 8.8 8.5 - 10.3 mg/dL Final Bilirubin, total 07/09/2022 2.1 (A) 0.1 - 1.2 mg/dL Final Protein, pl 07/09/2022 5.8 (A) 6.5 - 8.5 g/dL Final Albumin 07/09/2022 3.4 (A) 3.5 - 5.0 g/dL Final Alk phos 07/09/2022 278 (A) 40 - 130 Units/L Final Hemolyzed; result may be falsely decreased ALT 07/09/2022 See Comment 7 - 55 Units/L Final Credited; Hemolyzed Specimen AST 07/09/2022 See Comment 10 - 50 Units/L Final Credited; Hemolyzed Specimen Magnesium 07/09/2022 1.5 1.4 - 2.5 mg/dL Final Phosphorus, pl 07/09/2022 4.1 2.3 - 4.5 mg/dL Final Hemolyzed; result may be falsely elevated Carol, indirect 07/09/2022 Negative Final Patient has previous antibody history ABO Rh 07/09/2022 A Positive Final Color, ur 07/09/2022 Yellow Yellow Final Clarity, ur 07/09/2022 Clear Clear Final Specific gravity, ur 07/09/2022 1.015 1.003 - 1.030 Final pH, urine 07/09/2022 6.5 Final Protein, ur ql 07/09/2022 Negative Negative Final Glucose, ur ql 07/09/2022 Negative Negative Final Ketones, ur 07/09/2022 Negative Negative Final Bilirubin, ur 07/09/2022 Negative Negative Final Blood, ur 07/09/2022 Negative Negative Final Urobilinogen, ur 07/09/2022 >=8.0 (A) <2.0 mg/dL Final Nitrite, ur 07/09/2022 Negative Negative Final Leukocyte esterase, ur 07/09/2022 Negative Negative Final UA reflex comment 07/09/2022 Reflex conditions for microscopic UA and culture not met. Final Influenza A RNA 07/09/2022 Not Detected Not Detected Final Influenza B RNA 07/09/2022 Not Detected Not Detected Final RSV RNA 07/09/2022 Not Detected Not Detected Final COVID-19 RNA 07/09/2022 Not Detected Not Detected Final Coronavirus 229E RNA 07/09/2022 Not Detected Not Detected Final Coronavirus HKU1 RNA 07/09/2022 Not Detected Not Detected Final Coronavirus NL63 RNA 07/09/2022 Not Detected Not Detected Final Coronavirus OC43 RNA 07/09/2022 Not Detected Not Detected Final Adenovirus DNA 07/09/2022 Detected (A) Not Detected Final Metapneumovirus RNA 07/09/2022 Not Detected Not Detected Final Rhinovirus/Enterovirus RNA 07/09/2022 Detected (A) Not Detected Final Parainfluenza 1 RNA 07/09/2022 Not Detected Not Detected Final Parainfluenza 2 RNA 07/09/2022 Not Detected Not Detected Final Parainfluenza 3 RNA 07/09/2022 Not Detected Not Detected Final Parainfluenza 4 RNA 07/09/2022 Not Detected Not Detected Final B. pertussis DNA 07/09/2022 Not Detected Not Detected Final B. parapertussis DNA 07/09/2022 Not Detected Not Detected Final C. pneumoniae DNA 07/09/2022 Not Detected Not Detected Final M. pneumoniae DNA 07/09/2022 Not Detected Not Detected Final Lactate, POC 07/09/2022 2.0 0.7 - 2.2 mmol/L Final Neutrophil abs 07/09/2022 5.4 1.7 - 6.5 K/cumm Final Imm gran abs 07/09/2022 0.0 0.0 - 0.1 K/cumm Final Lymphocyte abs 07/09/2022 5.2 (A) 0.8 - 3.3 K/cumm Final Monocyte abs 07/09/2022 2.0 (A) 0.2 - 0.8 K/cumm Final Eosinophil abs 07/09/2022 1.4 (A) 0.0 - 0.5 K/cumm Final Basophil abs 07/09/2022 0.1 0.0 - 0.1 K/cumm Final Neutrophil pct 07/09/2022 38.2 % Final Comment: Confirmed by smear review Interpretive Data Percent cell count reference ranges are not reported, since discordance with absolute values may lead to misinterpretation of CBC data. Current Interpretive Data was last revised on 2018. Imm gran pct 07/09/2022 0.3 % Final Comment: Interpretive Data Percent cell count reference ranges are not reported, since discordance with absolute values may lead to misinterpretation of CBC data. Current Interpretive Data was last revised on 2018. Lymphocyte pct 07/09/2022 36.8 % Final Comment: Interpretive Data Percent cell count reference ranges are not reported, since discordance with absolute values may lead to misinterpretation of CBC data. Current Interpretive Data was last revised on 2018. Monocyte pct 07/09/2022 14.4 % Final Comment: Interpretive Data Percent cell count reference ranges are not reported, since discordance with absolute values may lead to misinterpretation of CBC data. Current Interpretive Data was last revised on 2018. Eosinophil pct 07/09/2022 9.7 % Final Comment: Interpretive Data Percent cell count reference ranges are not reported, since discordance with absolute values may lead to misinterpretation of CBC data. Current Interpretive Data was last revised on 2018. Basophil pct 07/09/2022 0.6 % Final Comment: Interpretive Data Percent cell count reference ranges are not reported, since discordance with absolute values may lead to misinterpretation of CBC data. Current Interpretive Data was last revised on 2018. eGFR 07/09/2022 >90 90 - 130 mL/min/1.73 m2 Final Comment: Interpretive Data Reference Interval Normal >/= 90 mL/min/1.73m2 Mildly decreased* 60 - 89 mL/min/1.73m2 Mildly to moderately decreased 45 - 59 mL/min/1.73m2 Moderately to severely decreased 30 - 44 mL/min/1.73m2 Severely decreased 15 - 29 mL/min/1.73m2 Kidney Failure < 15 mL/min/1.73m2 *Relative to young adult level Estimated glomerular [...] Current interpretive data was last reviewed 2021. Bilirubin, total 07/09/2022 2.4 (A) 0.1 - 1.2 mg/dL Final Bilirubin, direct 07/09/2022 1.5 (A) 0.1 - 0.3 mg/dL Final Protein, pl 07/09/2022 5.8 (A) 6.5 - 8.5 g/dL Final Albumin 07/09/2022 3.4 (A) 3.5 - 5.0 g/dL Final Alk phos 07/09/2022 312 (A) 40 - 130 Units/L Final ALT 07/09/2022 84 (A) 7 - 55 Units/L Final AST 07/09/2022 102 (A) 10 - 50 Units/L Final Radiology: EXAMINATION: Computed tomography of the chest with intravenous contrast HISTORY: Lymphoma, history of liver transplant in 1998 TECHNIQUE: Transaxial computed tomographic images of the chest were obtained with intravenous contrast according to standard protocol after the uneventful administration of 75 mL Opti-Ray 350 intravenous contrast. COMPARISON: CT chest dated 10/01/2021 and lung base images from CT abdomen and pelvis dated 07/05/2022; older prior studies were also reviewed FINDINGS: Patent central airways. Consolidation and multiple adjacent subcentimeter nodules in the inferior right middle lobe, which was partially imaged on CT dated 07/05/2022 and is new compared to CT of 10/01/2021. Scattered less than 6 mm nodules in the right lung, such as a 3 mm nodule in the right upper lobe (-183.0) are similar to CT dated 10/01/2021. No pleural effusion or pneumothorax. Partially imaged bilateral supraclavicular lymphadenopathy, such as a 1.1 cm left supraclavicular lymph node (-97.0), similar to CT dated 10/01/2021 accounting for the absence of intravenous contrast on the prior study. Bilateral axillary lymphadenopathy, such as a 1.8 cm right axillary lymph node (-133.0) and a 2.6 cm left axillary lymph node, is similar to the prior study accounting for differences in patient arm positioning. Mediastinal lymphadenopathy, such as subcarinal lymphadenopathy measuring 2.8 cm, and bilateral hilar lymphadenopathy are also similar to prior study. Nondistended esophagus. Normal caliber thoracic aorta and main pulmonary artery. Normal heart size. No pericardial effusion. The imaged thyroid appears normal. Images of the upper abdomen demonstrate postoperative changes of liver transplantation. The spleen is absent. Extensive mesenteric and retroperitoneal lymphadenopathy in the imaged upper abdomen is similar to prior CT dated 07/05/2022. No suspicious osseous lesions. IMPRESSION: 1. Consolidation and adjacent subcentimeter nodules in the right middle lobe, partially imaged on CT dated 07/05/2022 and likely representing pneumonia. Follow-up to resolution is recommended. 2. No significant interval change in extensive thoracic lymphadenopathy as described compared to CT dated 10/01/2021. Electronically signed by: Cathleen Flanagan M.D. EXAMINATION: CT of the paranasal sinuses without contrast HISTORY: Sinus fullness and drainage. History of lymphoma. TECHNIQUE: CT of the paranasal sinuses was performed using sinus protocol without contrast. Contrast Information: 0 mL Optiray-350 COMPARISON: Sinus CT 02/11/2022. FINDINGS: Surgical clips are again seen in the right neck soft tissues. When compared to the prior examination, there is slight interval progression of mucosal thickening in the right maxillary sinus. Near complete opacification of the left maxillary sinus appears unchanged. There is improved mucosal thickening within the frontal sinuses. Mucosal thickening within the ethmoid air cells appears unchanged. Mucosal thickening in the sphenoid sinuses has progressed. The ostiomeatal units are obstructed bilaterally. Review of the topogram demonstrates no abnormalities. The nasal septum is at midline. No areas of bony erosion are identified. The orbits are normal. Limited view of the frontal lobes is normal. IMPRESSION: 1. Mucosal thickening has progressed within the sphenoid sinuses and right maxillary sinus and improved within the frontal sinuses and ethmoid air cells. No noncontrast CT evidence of complication. Dictated by: Feliciano Ahn M.D. Assessment and Plan: Beka Nichols is a 27 y.o. male with c/o fatigue, cough, sob and sinus congestion Cough with sob. -Ddx: Viral vs Bacterial vs Disease progression -RVP Rhino and adenovirus +ve. -Basic labs: WBC 14.1, ANC 5.4, Hgb 11.2, lactate 2.0 -Ct chest w contrast- right middle lobe consolidation -NS continuous @ 125ml/hr -Cefepime 1g x once given @ 1630 -Mucinex 600 mg once 2. Sinus congestion -Ddx: bacterial vs fungal infection -BC x 2 including fungal culture x 1 -pending results. -Serum crypto Ag, Urine histo Ag, Serum histo Ab -CT sinus wo contrast - increased mucosal thickening sphenoid sinuses and right maxillary sinus.Improved frontal sinuses. No bony erosion seen. -Flonase nasal spray 3. Fatigue -CMV PCR -UA unremarkable, cx and micro requirements not met. -BC x pending results. 4.Transaminitis 2/2 PTLD -Bili 2.1, AST 102, ALT 84, ALP 312 -currently on Ursodiol 600 mg Daily -Continue monitoring. 5. PTLD -Managed by Dr. Gillespie. Currently on observation. Plan / Physician Discussion: Pt presented to the [facility] w/ c/o a productive cough, sinus congestion and night sweats. WBC 14.1 unchanged from 07/05 labs 14.6. ANC 5.4. Bili 2.4, AST 102, ALT 84. lactate2.0. BC x 2 including fungal cx sent and pending. Serum crypto Ag, Urine histo Ag, Serum histo Ab, CMV PCR also sent as requested by ID. RVP positive for rhino + adeno. CT chest showing consolidation in the right middle lobe. CT Sinus with no evidence of bony erosion. All laboratory results, radiologic findings, history and physical was discussed with . Plan to admit to inpatient. 2000: Transported patient to [facility] in stable condition. Khushi Cosme [facility] [phone] documented in this encounter H&P Notes * Robel Tan MD - 07/09/2022 11:18 PM CDT Oncology Hospitalist History & Physical Chief Complaint: Patient is a 27 y.o. male with chief complaint of fever. Subjective HPI: Mr. Nichols is a pleasant 27 year old man with a history of refractory ITP s/p splenectomy 2012, autoimmune hepatitis s/p orthotopic liver transplant 03/30/2009, c/b PTLD (c-Myc, EBV +) s/p R-CHOP x 1 (2016), DA-EPOCH-R x 5 (09/2017-12/2017) with IT MTX w/ C3 10/2017, achieving CR in 12/2017, persistent quantifiable CMV viremia since 06/2019 (currently on maribavir), who presents with fevers, chills, night sweats and URI symptoms. He reports over the past 2 weeks he has developed a cough productive of greenish sputum and dyspneaon exertion. He had a drenching night sweat last Wednesday night followed by low grade fevers and chills on a daily basis. He also reports fatigue and lethargy. He also reports a new nodule on his right thigh, which appeared about a month ago. It is nontender, but is red and hard to the touch. He denies any insect bites that he is aware of and only one other very small soft tissue nodule on his right chest. Also, he was recently seen in our ER for a kidney stone on 07/05, which passed spontaneously with hydration the following day. His symptoms of flank pain have completed remitted. At the time, he did have a CT abdomen which showed mild right hydroureteronephrosis with apparent obstructing stone near the right ureterovesicular junction, unchanged RP, mesenteric and parasesophageal LAD, as well as a possible RML pneumonia. He was seen today in ID clinic for his CMV viremia and given the myriad of his symptoms, was planned for a direct admission although there were no available beds. He was seen inour [facility] today, and found to be positive for both adenovirus and entero/rhinovirus. LFTs were elevated but mildly decreased (including bilirubin) compared to labs on 07/05. CT sinus and chest showed Mucosal thickening has progressed within the sphenoid sinuses and right maxillary sinus and improved within the frontal sinuses and ethmoid air cells. No noncontrast CT evidence of complication. Consolidation and adjacent subcentimeter nodules in the right middle lobe, partially imaged on CT dated 07/05/2022 and likely representing pneumonia. Blood cultures were drawn, he was given a dose of cefepime and admitted for further workup. Cancer Staging No matching staging information was found for the patient. Oncology History Overview Note PMH: 1. Liver transpant x 2 for acute liver failure (autoimmune hepatitis), 1998 2. 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) 10/2013 [...] Chemotherapy R-CHOP x 1, EPOCH-R x 5--> WA after C2 (5PS 4), CR p C6 [...] inclusions and small non-necrotizing granulomas, CMV positive Active Therapy Plans for [facility] Treatment: Evusheld 300 mg/300 mg Standard Dose Current treatment: Treatment 2 (Not started) Hematology: Immune Globulin (GAMUNEX) - 10% (FERNANDEZ ONLY) Current treatment: Treatment 3 (Planned for 12/04/2020) Following planned treatment: Treatment 4 (Planned for 01/01/2021) Past Medical History: Diagnosis Date Cancer (CMS/HCC) [...] 5 YEARS N/A 12/26/2021 LIVER TRANSPLANT 1999 SPLENECTOMY US ABDOMEN COMPLETE W LIVER DOPPLER (C) Right 10/18/2018 US GUIDED BIOPSY LIVER N/A 10/18/2018 US GUIDED BIOPSY LIVER N/A 05/14/2020 US GUIDED BIOPSY LYMPH NODE SUPERFICIAL LEFT N/A 10/13/2019 US GUIDED BIOPSY LYMPH NODE SUPERFICIAL LEFT N/A 10/07/2021 No Known Allergies Medications Prior to Admission Medication Sig Dispense Refill Last Dose budesonide (Pulmicort) 0.5 mg/2 mL nebulizer solution Administer 2 mL (0.5 mg total) into each nostril daily Mix 4ml into 240ml nasal saline and perform nasal rinse 180 mL 5 maribavir 200 mg tablet Take 2 tablets (400 mg total) by mouth 2 (two) times a day 28 tablet 1 tacrolimus (PROGRAF) 0.5 mg immediate-release capsule Take 1 capsule (0.5 mg total) by mouth every other day traZODone (DESYREL) 50 mg tablet Take 1 tablet (50 mg total) by mouth nightly 30 tablet 2 ursodioL (ACTIGALL) 300 mg capsule Take 2 capsules (600 mg total) by mouth daily with dinner 180 capsule 3 Current Facility-Administered Medications: acetaminophen (TYLENOL) tablet 650 mg, 650 mg, oral, Q6H PRN, Rboel Tan MD aluminum & magnesium zxyeqmvpd-gweqezjzdga-hxvvjgzjavkbwvp-lidocaine (MAGIC MOUTHWASH) oral suspension 1-1-1 15 mL, 15 mL, swish & swallow, QID PRN, Robel Tan MD azithromycin (ZITHROMAX) tablet 500 mg, 500 mg, oral, Daily, Robel Tan MD, 500 mg at 07/09/222122 bacitracin-polymyxin B (POLYSPORIN) 500-10,000 unit/gram ointment tube 1 application, 1 application, topical, Q4H PRN, Robel Tan MD camphor-menthoL (SARNA) 0.5-0.5 % lotion, , topical, Q2H PRN, Robel Tan MD cefepime (MAXIPIME) 1,000 mg/10 mL in sterile water (premix) 1,000 mg, 1,000 mg, intravenous, Q8H PIPPA, Robel Tan MD, Stopped at 07/09/22 213 enoxaparin (LOVENOX) syringe 40 mg, 40 mg, subcutaneous, Daily-2100, Robel Tan MD, 40 mg at 07/09/22 222 fluticasone propionate (FLONASE) 50 mcg/actuation nasal spray 2 spray, 2 spray, each nostril, Daily, Khushi Cosme, AIDEN, 2 spray at 07/09/22 1713 heparin 10 unit/mL flush 20-50 Units, 2-5 mL, intra-catheter, PRN, Robel Tan MD heparin 10 unit/mL flush 20-50 Units, 2-5 mL, intra-catheter, PRN, Robel Tan MD heparin 10 unit/mL flush 50 Units, 5 mL, intra-catheter, BID, Robel Tan MD heparin 10 unit/mL flush 50 Units, 5 mL, intra-catheter, Q12H PIPPA, Robel Tan MD heparin 100 unit/mL injection 500 Units, 5 mL, intra-catheter, Once, Robel Tan MD loperamide (IMODIUM) capsule 2 mg, 2 mg, oral, Q1H PRN, Robel Tan MD magnesium sulfate 4 g/100 mL in water (premix) 4 g, 4 g, intravenous, Q4H PRN, Robel Tan MD magnesium sulfate 6 g in sodium chloride 0.9% 250 mL IVPB, 6 g, intravenous, Q4H PRN, Robel Tan MD polyvinyl alcohol-povidone (REFRESH CLASSIC) 1.4-0.6 % ophthalmic solution 2 drop, 2 drop, each eye, Q4H PRN, Robel Tan MD potassium chloride ER (KLOR-CON) extended release tablet 40 mEq, 40 mEq, oral, Q2H PRN, Robel Tan MD prochlorperazine (COMPAZINE) tablet 5 mg, 5 mg, oral, Q6H PRN OR prochlorperazine (COMPAZINE) injection 5 mg, 5 mg, intravenous, Q6H PRN, Robel Tan MD sodium chloride (OCEAN) 0.65 % nasal spray 2 spray, 2 spray, each nostril, Q1H PRN, Robel Tan MD sodium chloride 0.9% flush 10 mL, 10 mL, intra-catheter, Once, Robel Tan MD sodium chloride 0.9% flush 10 mL, 10 mL, intra-catheter, Q12H PIPPA, Robel Tan MD sodium chloride 0.9% flush 10-20 mL, 10-20 mL, intra-catheter, PRN, Robel Tan MD sodium chloride 0.9% infusion, 125 mL/hr, intravenous, Continuous, Khushi Cosme, AIDEN, Last Rate: 125 mL/hr at 07/09/222231, 125 mL/hr at 07/09/222231 sodium chloride 0.9% infusion, 30 mL/hr, intravenous, Continuous PRN, Robel Tan MD sodium phosphate - potassium phosphate (K-PHOS NEUTRAL) tablet 500 mg, 500 mg, oral, Daily PRN, Robel Tan MD tacrolimus (PROGRAF) immediate-release capsule 0.5 mg, 0.5 mg, oral, Every other day, Robel Tan MD, 0.5 mg at 07/09/222122 [START ON 07/10/2022] ursodioL (ACTIGALL) capsule 600 mg, 600 mg, oral, Daily with dinner, Robel Tan MD white petrolatum-mineral oiL (EUCERIN) cream, , topical, Q2H PRN, Robel Tan MD Family History Problem Relation Age of Onset [...] Not Currently Sexual activity: Defer Alcohol Use: Unknown Frequency of Alcohol Consumption: 2-4 times a month Average Number of Drinks: 1 or 2 Frequency of Binge Drinking: Not on file Review of Systems Review of systems per HPI and otherwise all other systems are negative Review of Systems Objective Vitals: Arrival Vitals Temp 07/09/22 1231 36.7 ??C (98.1 ??F) Pulse 07/09/22 1231 74 Resp 07/09/22 1231 18 BP 07/09/22 1231 117/74 SpO2 07/09/22 1231 98 % Temp src 07/09/22 1231 Oral Heart Rate Source 07/09/22 1231 Monitor Patient Position 07/09/22 1231 Sitting BP Location 07/09/22 1611 Right arm FiO2 (%) -- 24hr Min/Max: Temp Min: 36.6 ??C (97.9 ??F) Max: 36.9 ??C (98.4 ??F) Pulse Min: 74 Max: 82 BP Min: 105/52 Max: 117/74 Resp Min: 8 Max: 18 SpO2 Min: 97 % Max: 100 % Most Recent : Vitals: 07/09/22 2313 BP: 109/54 BP Location: Right arm Patient Position: Lying Pulse: 82 Resp: 8 Temp: 36.9 ??C (98.4 ??F) TempSrc: Oral SpO2: 97% Weight: I/O last 2 completed shifts: In: 10 [IV Piggyback:10] Out: - Physical exam: General Appearance: Awake, alert, no acute distress Head: Normocephalic, atraumatic Eyes: Sclera anicteric, pupils equal Lungs: Decreased breath sounds on the right Cardiovascular: Regular rate and rhythm, S1 and S2 normal, no murmur, rub or gallop, no peripheral edema Abdomen: Soft, non-tender to palpation Extremities: Extremities normal, atraumatic Skin: Warm and dry without rashes. Indurated nodule on R thigh with overlying erythema Neurologic: Awake and alert, answering questions appropriately Psychosocial: Normal affect and mood Lab/Radiology/Diagnostic Review: Laboratory review: Lab results in the last 12 hours: Recent Results (from the past 12 hour(s)) CBC with auto differential Collection Time: 07/09/22 12:48 PM Result Value Ref Range WBC 14.1 (H) 3.8 - 9.9 K/cumm Hgb 11.2 (L) 13.0 - 17.5 g/dL Hct 31.9 (L) 38.9 - 50.3 % Plt 228 150 - 400 K/cumm MPV 12.8 (H) 9.1 - 12.3 fL RBC 3.24 (L) 4.30 - 5.80 M/cumm MCV 98.5 (H) 81.3 - 96.4 fL MCH 34.6 (H) 27.1 - 33.3 pg MCHC 35.1 32.3 - 35.7 g/dL RDW CV 16.8 (H) 11.1 - 14.9 % RDW SD 60.0 (H) 35.7 - 48.1 fL NRBC abs 0.00 0.00 - 0.01 K/cumm Comprehensive metabolic panel Collection Time: 07/09/22 12:48 PM Result Value Ref Range Sodium 139 135 - 145 mmol/L Potassium, pl See Comment 3.3 - 4.9 mmol/L Chloride 108 97 - 110 mmol/L CO2 24 22 - 32 mmol/L Anion gap 7 2 - 15 mmol/L BUN 11 8 - 25 mg/dL Creatinine 0.71 (L) 0.80 - 1.30 mg/dL Glucose 134 70 - 199 mg/dL Calcium 8.8 8.5 - 10.3 mg/dL Bilirubin, total 2.1 (H) 0.1 - 1.2 mg/dL Protein, pl 5.8 (L) 6.5 - 8.5 g/dL Albumin 3.4 (L) 3.5 - 5.0 g/dL Alk phos 278 (H) 40 - 130 Units/L ALT See Comment 7 - 55 Units/L AST See Comment 10 - 50 Units/L Magnesium Collection Time: 07/09/22 12:48 PM Result Value Ref Range Magnesium 1.5 1.4 - 2.5 mg/dL Phosphorus Collection Time: 07/09/22 12:48 PM Result Value Ref Range Phosphorus, pl 4.1 2.3 - 4.5 mg/dL Type and screen Collection Time: 07/09/22 12:48 PM Result Value Ref Range Carol, indirect Negative ABO Rh A Positive Urinalysis reflex to microscopic and culture Urine, clean voided Collection Time: 07/09/22 12:48 PM Specimen: Urine, clean voided Result Value Ref Range Color, ur Yellow Yellow Clarity, ur Clear Clear Specific gravity, ur 1.015 1.003 - 1.030 pH, urine 6.5 Protein, ur ql Negative Negative Glucose, ur ql Negative Negative Ketones, ur Negative Negative Bilirubin, ur Negative Negative Blood, ur Negative Negative Urobilinogen, ur >=8.0 (A) <2.0 mg/dL Nitrite, ur Negative Negative Leukocyte esterase, ur Negative Negative UA reflex comment Reflex conditions for microscopic UA and culture not met. Cytomegalovirus (CMV) DNA PCR, quantitative Blood Collection Time: 07/09/22 12:48 PM Specimen: Blood Result Value Ref Range CMV DNA Detected (A) CMV DNA IU/mL 12,000 (Critical) IUnits/mL CMV DNA log IU/mL 4.08 log IUnits/mL Differential, auto Collection Time: 07/09/22 12:48 PM Result Value Ref Range Neutrophil abs 5.4 1.7 - 6.5 K/cumm Imm gran abs 0.0 0.0 - 0.1 K/cumm Lymphocyte abs 5.2 (H) 0.8 - 3.3 K/cumm Monocyte abs 2.0 (H) 0.2 - 0.8 K/cumm Eosinophil abs 1.4 (H) 0.0 - 0.5 K/cumm Basophil abs 0.1 0.0 - 0.1 K/cumm Neutrophil pct 38.2 % Imm gran pct 0.3 % Lymphocyte pct 36.8 % Monocyte pct 14.4 % Eosinophil pct 9.7 % Basophil pct 0.6 % eGFR Collection Time: 07/09/22 12:48 PM Result Value Ref Range eGFR >90 90 - 130 mL/min/1.73 m2 POC Blood Gas and Chemistries, Arterial - Collection Time: 07/09/22 1:11 PM Result Value Ref Range Lactate, POC 2.0 0.7 - 2.2 mmol/L Respiratory pathogen panel Nasopharyngeal Collection Time: 07/09/22 1:16 PM Specimen: Nasopharyngeal Result Value Ref Range Influenza A RNA Not Detected Not Detected Influenza B RNA Not Detected Not Detected RSV RNA Not Detected Not Detected COVID-19 RNA Not Detected Not Detected Coronavirus 229E RNA Not Detected Not Detected Coronavirus HKU1 RNA Not Detected Not Detected Coronavirus NL63 RNA Not Detected Not Detected Coronavirus OC43 RNA Not Detected Not Detected Adenovirus DNA Detected (A) Not Detected Metapneumovirus RNA Not Detected Not [...] M. pneumoniae DNA Not Detected Not Detected Hepatic function panel Collection Time: 07/09/22 2:59 PM Result Value Ref Range Bilirubin, total 2.4 (H) 0.1 - 1.2 mg/dL Bilirubin, direct 1.5 (H) 0.1 - 0.3 mg/dL Protein, pl 5.8 (L) 6.5 - 8.5 g/dL Albumin 3.4 (L) 3.5 - 5.0 g/dL Alk phos 312 (H) 40 - 130 Units/L ALT 84 (H) 7 - 55 Units/L AST 102 (H) 10 - 50 Units/L CBC: Recent Labs Lab Units 07/09/22 1248 WBC K/cumm 14.1* HEMOGLOBIN g/dL 11.2* HEMATOCRIT % 31.9* MCV fL 98.5* MCH pg 34.6* MCHC g/dL 35.1 RDW CV % 16.8* RDWSD fL 60.0* MPV fL 12.8* NEUTROS ABS K/cumm 5.4 CMP: Recent Labs Lab Units 07/09/22 1459 07/09/22 1248 SODIUM mmol/L -- 139 POTASSIUM PLASMA mmol/L -- See Comment CO2 mmol/L -- 24 BUN SERUM mg/dL -- 11 GLUCOSE mg/dL -- 134 CREATININE mg/dL -- 0.71* CALCIUM mg/dL -- 8.8 CHLORIDE mmol/L -- 108 ALBUMIN g/dL 3.4* 3.4* AST Units/L 102* See Comment ALT Units/L 84* See Comment ALK PHOS Units/L 312* 278* BILIRUBIN TOTAL mg/dL 2.4* 2.1* TOTAL PROTEIN g/dL 5.8* 5.8* ANIONGAP mmol/L -- 7 LDH: Uric Acid: PT: PTT: Assessment/Plan Community acquired pneumonia Adenovirus+, Rhinovirus/enterovirus +. Predominantly pharyngitis/upper respiratory symptoms, with chills, low grade fevers and night sweats at home ~1- [address] chest with evidence of RML consolidation, may represent concomitant bacterial pneumonia. - Supportive care for viral URI - Blood cultures pending, fungal serologies pending - Induced sputum - Cefepime, azithromycin for CAP coverage. Can de-escalate pending blood cultures Subcutaneous nodule of right lower extremity Indurated soft tissue nodule with overlying erythema, mildly tender. First noticed ~1 month ago. Denies any arthopod bites or known exposure or trauma. - Consider ultrasound to assess for drainable collection - Dermatology consult for potential biopsy, possible disseminated infection Elevated LFTs Recently w/ elevated LFTs, now appear down-trending. 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 Followed by Dr. Gresham. 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 S/p RCHOP x1 and DA-EPOCH-R x5 (completed 12/2017), IT-MTX C3 only d/t intracranial hypotension, w/ post-C2 WA, CR at end-of treatment. No e/o recurrence though course complicated by multiple episodes of progressive annika opathy w/ spontaneous resolution. -Followed by Dr. Gillespie, on observation - Med Onc consult inpatient 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HCC) CMV DNA positivity since at least April [...] fungal serologies and CMV DNA PCR pending Robel Tan MD documented in this encounter Procedure Notes * Alexandra Silva MD PhD - 07/10/2022 12:48 PM CDT Procedures Derm Punch Biopsy Date/Time: 07/10/2022 12:49 PM Performed by: Alexandra Silva Authorized by: LEEANNA DEWITT Protocol: RN Notified of Procedure: yes Informed consent: Risks, benefits, alternatives discussed Patient's stated name/ matches armband: yes Allergies confirmed: yes Consent form signed, dated, timed; matches correct patient, intended procedure and site: yes Imaging: N/A Lab/Diag test results: N/A Supplies, devices and special equipment are available: yes Site/side marked: yes Immediately prior to the procedure a time out was called: a verbal verification by the procedure participants confirmed correct patient identity, correct site/side marked and visible (if applicable);agreement on procedure to be done; and correct patient positioning Anesthesia method: Local infiltration Local anesthetic: Lidocaine 1% WITH epi Hand hygiene performed: Yes PPE (including eye protection) in place as appropriate to the procedure: Yes Preparation: Patient was prepped using appropriate disinfectant and draped using sterile technique as needed Procedure details: PROCEDURE: Punch Biopsy DIAGNOSIS: neoplasm LOCATION: Right inner thigh DESCRIPTION OF PROCEDURE: Informed consent was obtained, including discussion of risks including bleeding, scarring, infection, and recurrence/persistence. [place] Protocol Time-Out performed. The lesional area was prepped with alcohol prior to infiltration with 1% lidocaine with epinephrine, 1:100,000 x 3 ml. The lesion was biopsied with a 4 mm punch. The specimen was placed in formalin and sent for routine histopathological evaluation. Hemostasis and closure was obtained with 4.0 nylon suture/s. There were no complications. The wound was then dressed with sterile petrolatum and a sterile dressing. Wound care instructions were provided. The patient will be notified by one of the clinical staff (inpatient or by phone) regarding the biopsy results and the need for further treatment. Sutures will be removed in 10-14 days. Patient tolerance: Patient tolerated the procedure well with no immediate complications Post Procedure Debrief: All guidewires, needles, sponges or other items are accounted for: yes Any special post procedure monitoring, testing or other considerations: n/a All specimens identified, labeled and matched to patient identification: yes Responsible constitution party for transporting specimen(s) to lab determined: yes Kiera Silva MD PhD PGY4 Dermatology Cosigned by Leeanna Dewitt MD at 07/13/2022 5:19 PM CDT Associated attestation - Leeanna Dewitt MD - 07/13/2022 5:19 PM CDT I have seen and examined the patient on 07/10/2022. I agree with the findings and plan of care as documented in the resident's note, and I was present for the entire procedure. Leeanna Dewitt MD documented in this encounter Consult Notes * Nikky Duncan MD - 07/11/2022 7:19 PM CDTAssociated Order(s): CONSULT TO TRANSPLANT - LIVER Infectious Disease Subsequent Consult Note Infectious Disease Team: Transplant Contact Information: Please see [facility] Treatment Team listing for up-to-date contact information. Subjective Interval History: -No acute overnight events -received IVIG in the AM -URI symptoms better -punch biopsy of rt thigh nodule done -ENT evaluation for sinusitis-recommended budesonide irrigation Objective Anti-infectives (From admission, onward) Start Dose/Rate Route Frequency Ordered Stop 07/10/22 1145 maribavir tablet 400 mg 400 mg oral 2 times daily 07/10/22 1109 07/09/22 2200 cefepime (MAXIPIME) 1,000 mg/10 mL in sterile water (premix) 1,000 mg 1,000 mg 120 mL/hr over 5 Minutes intravenous Every 8 hours scheduled 07/09/22210207/09/222102 bacitracin-polymyxin B (POLYSPORIN) 500-10,000 unit/gram ointment tube 1 application 1 application topical Every 4 hours PRN 07/09/222102 Vitals: 24hr Min/Max: Temp Min: 36.5 ??C (97.7 ??F) Max: 36.8 ??C (98.2 ??F) Pulse Min: 69 Max: 79 BP Min: 99/57 Max: 116/64 Resp Min: 16 Max: 18 SpO2 Min: 97 % Max: 98 % Most Recent : Vitals: 07/11/22 1545 BP: 110/59 Pulse: 70 Resp: 16 Temp: 36.8 ??C (98.2 ??F) SpO2: 98% I/O last 2 completed shifts: In: 4731 [P.O.:2160; I.V.:2321; IV Piggyback:250] Out: 3825 [Urine:3825] Active LDAs: Peripheral IV 07/09/22 20 G Anterior;Distal;Right;Upper Arm (Active) Number of days: 2 Physical Exam: Physical Exam Constitutional: General: He is not in acute distress. Appearance: He is not ill-appearing, toxic-appearing or diaphoretic. HENT: Mouth/Throat: Mouth: Mucous membranes are moist. Eyes: General: No scleral icterus. Cardiovascular: Heart sounds: Normal heart sounds. No murmur heard. Pulmonary: Effort: Pulmonary effort is normal. No respiratory distress. Breath sounds: No stridor. No rhonchi. Abdominal: General: Bowel sounds are normal. Palpations: Abdomen is soft. Musculoskeletal: Right lower leg: No edema. Left lower leg: No edema. Comments: RT thigh nodule biopsied- no discharge/ erythema Neurological: General: No focal deficit present. Mental Status: He is alert and oriented to person, place, and time. Psychiatric: Mood and Affect: Mood normal. Behavior: Behavior normal. Lab/Radiology/Diagnostic Review: Lab Results Component Value Date MICROBIOLOGY Final Report: This is the final report. 07/10/2022 MICROBIOLOGY Preliminary Report: No growth to date. 07/09/2022 MICROBIOLOGY Preliminary Report: No growth to date. 07/09/2022 MICROBIOLOGY Preliminary Report: No growth of fungus to date 07/09/2022 MICROBIOLOGY (.) 12/25/2021 Final Report: Moderate Haemophilus influenzae , Beta lactamase negative Few Mixed microorganisms. Radiology results were reviewed. US Lower Extremity Right Limited Result Date: 07/10/2022 IMPRESSION: 1. Findings consistent with cellulitis at the lump at the anterior right thigh. 2. Nodrainable fluid collection. 3. No sonographically evident retained foreign body. Electronically signed by: Tess Crouch MD Assessment/Plan The patient is a 27 y.o. male with a PMHx of refractory ITP s/p splenectomy 2012, autoimmune hepatitis s/p orthotopic liver transplant 03/30/2009, c/b PTLD (c-Myc, EBV +) s/p R-CHOP x 1 (2016), DA-EPOCH-R x 5 (09/2017-12/2017) with IT MTX w/ C3 10/2017, achieving CR in 12/2017, persistent quantifiable CMV viremia since 06/2019 (currently on maribavir), who presents with fevers, chills, night sweats and URI symptoms. Transplant ID was consulted for antiviral recommendations for persistent CMV viremia on mirabavir. #CMV Viremia, on Mirabavir #Pneumonia, community acquired #Rhinovirus #Adenovirus #Sinusitis Patient with 2 week history of progressive cough (productive of green sputum), fever, chills, and fatigue/malaise. RVP positive for rhinovirus & adenovirus. . CT sinus w/ progressive mucosal thickening compared to prior. He was evaluated by ENT who recommended budesonide irrigation Patient had persistent CMV viremia on antiviral therapy w/ mirabavir. He was continued on Mirabavirwith downtrending CMV loads 06/27: 99854 07/04:27506 07/09: 21133 07/11: Pending CMV resistance genotype pending Chest CT showed RML consolidation for which he was started on cefepime and azithromycin (07/09-) . Serum cryptococcus and urine histoplasma negative DDx includes viral versus bacterial pneumonia/pneumonitis ISO asplenia and low- dose tacrolimus. Quantititative IgM and IgA was low . He received one dose of IVIG Recommendations - Continue Mirabavir 400 mg BID - F/u CMV viral load on 07/11 - F/U Adenovirus blood PCR - Quantitative Ig panel - F/u CMV genotype resistance testing Patient Patient was staffed with Dr. Forman Cosigned by Cruz Forman MD at 07/12/2022 12:19 PM CDT Associated attestation - Cruz Forman MD - 07/12/2022 12:19 PM CDT The resident/fellow saw and examined the patient, we discussed their findings, and I am in agreement with the plan based on the discussion with the resident/fellow. I did not personally examine the patient. * Portillo Simpson MD - 07/10/2022 7:01 PM CDTAssociated Order(s): CONSULT TO TRANSPLANT INFECTIOUS DISEASE Infectious Disease Initial Consult Note Infectious Disease Team: Transplant Contact Information: Please see [facility] Treatment Team listing for up-to-date contact information. Requesting Physician: Anita Gillespie MD Reason for Consult: Diagnostic and treatment recommendations, as well as assistance with follow up care. Subjective Chief Complaint: cough, fatigue HPI: The patient is a 27 y.o. male with a PMHx of refractory ITP s/p splenectomy 2012, autoimmune hepatitis s/p orthotopic liver transplant 03/30/2009, c/b PTLD (c-Myc, EBV +) s/p R-CHOP x 1 (2016), DA-EPOCH-R x 5 (09/2017-12/2017) with IT MTX w/ C3 10/2017, achieving CR in 12/2017, persistent quantifiable CMV viremia since 06/2019 (currently on maribavir), who presents with fevers, chills, night sweats and URI symptoms. He reports over the past 2 weeks he has developed a cough productive of greenish sputum and dyspneaon exertion. He also notes low grade fevers, chills, fatigue and lethargy. He also reports a new nodule on his right thigh, which appeared about a month ago. It is nontender, but is red and hard to the touch. He denies any insect bites that he is aware of and only one other very small soft tissue nodule on his right chest. He was seen in oncology clinic on 07/09 and found to be positive for both adenovirus and entero/rhinovirus. LFTs were elevated but mildly decreased (including bilirubin) compared to labs on 07/05. CT sinus some increased mucosal thickening. CT abdomen/pelvis w/o evidence of complication. Consolidation and adjacent subcentimeter nodules in the right middle lobe, partially imaged on CT dated 07/05/2022 and likely representing pneumonia. He was admitted and started on cefepime and azithromycin. VS wnl on admission w/ a temp of 36.7. WBC 14.8, alk phos of 285, AST 99, ALT 76, CMV DNA 12,000 international units/mL. RVP notable for rhinovirus/enterovirus RNA & adenovirus DNA. Cryptococcus antigen negative. 2x BCx and filamentous cultures from 07/09 1248 w/ NGTD. Histo urine antigen and serum Ab pending. CMV mutation detection pending. On exam today, he notes he is feeling subjectively better s/p IV fluids and 1 day of cefepime/azithromycin. His SOB and cough have slightly improved, though are distant from baseline. Was breathing comfortably on room air and able to speak in full sentences comfortably. VS wnl. Noted that he currently gets IVIg h0itlyd and is due for his next infusion tomorrow, 07/11. CMV DNA of 12,000 international units/mL on this admission was down from 15,500 in 03/2022, but he was undetectable on multiple reads between 12/2021-01/2022 after being 14,600 in 10/2021. He started mirabivir in 03/2022. CMV mutation testing negative for mutations to ganciclovir, cidofovir, foscarnet, and ganciclovir in 10/2021. Past Medical History: No date: Cancer (CMS/HCC) [...] SUPERFICIAL; N/A 12/24/2021: EXCHANGE PICC LINE; Left 12/19/2021: IR PICC LINE PLACEMENT > 5 YEARS; N/A 12/26/2021: IR PICC LINE PLACEMENT > 5 YEARS; N/A 1998: LIVER TRANSPLANT No date: SPLENECTOMY 10/18/2018: US ABDOMEN COMPLETE W LIVER DOPPLER (C); Right 10/18/2018: US GUIDED BIOPSY LIVER; N/A 05/14/2020: US GUIDED BIOPSY LIVER; N/A 10/13/2019: US GUIDED BIOPSY LYMPH NODE SUPERFICIAL LEFT; N/A 10/07/2021: US GUIDED BIOPSY LYMPH NODE SUPERFICIAL LEFT; N/A HOME MEDICATIONS : budesonide (Pulmicort) 0.5 mg/2 mL nebulizer solution maribavir 200 mg tablet tacrolimus (PROGRAF) 0.5 mg immediate-release capsule traZODone (DESYREL) 50 mg tablet ursodioL (ACTIGALL) 300 mg capsule Current Facility-Administered Medications Ordered in Epic Medication Dose Route Frequency Provider Last Rate Last Admin acetaminophen (TYLENOL) tablet 650 mg 650 mg oral Q6H PRN Robel Tan MD aluminum & magnesium vbnaqnllf-rlxqzupmxnw-ejbdjsajbzlxdum-lidocaine (MAGIC MOUTHWASH) oral suspension 1-1-1 15 mL 15 mL swish & swallow QID PRN Robel Tan MD azithromycin (ZITHROMAX) tablet 500 mg 500 mg oral Daily Robel Tan MD 500 mg at 07/10/22 0845 bacitracin-polymyxin B (POLYSPORIN) 500-10,000 unit/gram ointment tube 1 application 1 application topical Q4H PRN Robel Tan MD camphor-menthoL (SARNA) 0.5-0.5 % lotion topical Q2H PRN Robel Tan MD cefepime (MAXIPIME) 1,000 mg/10 mL in sterile water (premix) 1,000 mg 1,000 mg intravenous Q8H PIPPA Robel Tan MD Stopped at 07/10/22 1400 enoxaparin (LOVENOX) syringe 40 mg 40 mg subcutaneous Daily-2100 Robel Tan MD 40 mg at 07/09/22 2229 fluticasone propionate (FLONASE) 50 mcg/actuation nasal spray 2 spray 2 spray each nostril Daily Khushi Cosme NP 2 spray at 07/09/22 1713 guaiFENesin-dextromethorphan ER (MUCINEX DM) 600-30 mg per 12 hour tablet 1 tablet 1 tablet oral BID Robel Tan MD 1 tablet at 07/10/22 0845 heparin 10 unit/mL flush 20-50 Units 2-5 mL intra-catheter PRN Robel Tan MD heparin 10 unit/mL flush 20-50 Units 2-5 mL intra-catheter PRN Robel Tan MD heparin 10 unit/mL flush 50 Units 5 mL intra-catheter BID Robel Tan MD heparin 10 unit/mL flush 50 Units 5 mL intra-catheter Q12H PIPPA Robel Tan MD heparin 100 unit/mL injection 500 Units 5 mL intra-catheter Once Robel Tan MD loperamide (IMODIUM) capsule 2 mg 2 mg oral Q1H PRN Robel Tan MD magnesium sulfate 4 g/100 mL in water (premix) 4 g 4 g intravenous Q4H PRN Robel Tan MD Stopped at 07/10/22 1530 magnesium sulfate 6 g in sodium chloride 0.9% 250 mL IVPB 6 g intravenous Q4H PRN Robel Tan MD maribavir tablet 400 mg 400 mg oral BID Cruz Forman MD 400 mg at 07/10/22 1353 polyvinyl alcohol-povidone (REFRESH CLASSIC) 1.4-0.6 % ophthalmic solution 2 drop 2 drop each eye Q4H PRN Robel Tan MD potassium chloride ER (KLOR-CON) extended release tablet 40 mEq 40 mEq oral Q2H PRN Robel Tan MD prochlorperazine (COMPAZINE) tablet 5 mg 5 mg oral Q6H PRN Robel Tan MD Or prochlorperazine (COMPAZINE) injection 5 mg 5 mg intravenous Q6H PRN Robel Tan MD sodium chloride (OCEAN) 0.65 % nasal spray 2 spray 2 spray each nostril Q1H PRN Robel Tan MD sodium chloride 0.9% flush 10 mL 10 mL intra-catheter Once Robel Tan MD sodium chloride 0.9% flush 10 mL 10 mL intra-catheter Q12H PIPPA Robel Tan MD 10 mL at 07/10/22 0130 sodium chloride 0.9% flush 10-20 mL 10-20 mL intra-catheter PRN Robel Tan MD sodium chloride 0.9% infusion 125 mL/hr intravenous Continuous Khushi Cosme NP 125 mL/hr at 07/09/22 2232 125 mL/hr at 07/09/22 223 sodium chloride 0.9% infusion 30 mL/hr intravenous Continuous PRN Robel Tan MD sodium phosphate - potassium phosphate (K-PHOS NEUTRAL) tablet 500 mg 500 mg oral Daily PRN Robel Tan MD tacrolimus (PROGRAF) immediate-release capsule 0.5 mg 0.5 mg oral Every other day Robel Tan MD ursodioL (ACTIGALL) capsule 600 mg 600 mg oral Daily with dinner Robel Tan MD 600 mg at 07/10/22 1629 white petrolatum-mineral oiL (EUCERIN) cream topical Q2H PRN Robel Tan MD No current Epic-ordered outpatient medications on file. Anti-infectives (From admission, onward) Start Dose/Rate Route Frequency Ordered Stop 07/10/22 1145 maribavir tablet 400 mg Note to Pharmacy: [facility] patient is able to bring in home medication. 400 mg oral 2 times daily 07/10/22 1109 07/09/22 2200 cefepime (MAXIPIME) 1,000 mg/10 mL in sterile water (premix) 1,000 mg 1,000 mg 120 mL/hr over 5 Minutes intravenous Every 8 hours scheduled 07/09/22210207/09/22 214 azithromycin (ZITHROMAX) tablet 500 mg 500 mg oral Daily 07/09/22210207/12/22 0859 07/09/22 210 bacitracin-polymyxin B (POLYSPORIN) 500-10,000 unit/gram ointment tube 1 application 1 application topical Every 4 hours PRN 07/09/22 210 Active Lines/Ports/Devices: Peripheral IV 07/09/22 20 G Anterior;Distal;Right;Upper Arm (Active) Number of days: 1 Patient Allergies: No Known Allergies Social History Social History Narrative Living Situation: Residential institution 10/05/17 (Added by MARIN Holland) reports that he has never smoked. His smokeless tobacco use includes chew. He reports that he does not currently use drugs. No alcohol history on file. Family history reviewed and non-contributory Family History Problem Relation Age of Onset Rectal cancer Mother Rectal cancer - (Added by MARIN Holland) Diabetes type II Sister Family history of type 2 diabetes mellitus - (Added by TW Conv) Anesthesia problems Other No Known Problems Father Review of Systems: Review of Systems Constitutional: Positive for chills, diaphoresis, fatigue and fever. HENT: Positive for congestion, rhinorrhea, sinus pressure and sinus pain. Negative for sore throat. Eyes: Negative. Respiratory: Positive for cough and shortness of breath. Negative for wheezing and stridor. Cardiovascular: Negative. Gastrointestinal: Negative. Endocrine: Negative. Genitourinary: Negative. Musculoskeletal: Negative. Skin: Thigh nodule Allergic/Immunologic: Negative. Neurological: Negative. Psychiatric/Behavioral: Negative. Objective Vitals: 24hr Min/Max: Temp Min: 36.7 ??C (98.1 ??F) Max: 36.9 ??C (98.4 ??F) Pulse Min: 71 Max: 88 BP Min: 102/53 Max: 115/61 Resp Min: 16 Max: 18 SpO2 Min: 95 % Max: 100 % Most Recent : Vitals: 07/10/22 1630 BP: 114/65 Pulse: 71 Resp: 16 Temp: 36.7 ??C (98.1 ??F) SpO2: 96% Vitals: 07/10/22 0300 07/10/22 0845 07/10/22 1355 07/10/22 1630 BP: 102/53 115/61 111/61 114/65 BP Location: Left arm Left arm Left arm Left arm Patient Position: Lying Sitting Sitting Sitting Pulse: 88 87 72 71 Resp: 16 16 16 16 Temp: 36.9 ??C (98.4 ??F) 36.7 ??C (98.1 ??F) 36.8 ??C (98.2 ??F) 36.7 ??C (98.1 ??F) TempSrc: Oral Oral Oral Oral SpO2: 98% 98% 95% 96% Weight: Height: I/O last 2 completed shifts: In: 4817 [P.O.:1480; I.V.:3337] Out: 4500 [Urine:4500] Physical Exam: Physical Exam Constitutional: Appearance: Normal appearance. He is not toxic-appearing. HENT: Head: Normocephalic and atraumatic. Nose: Congestion present. Mouth/Throat: Mouth: Mucous membranes are moist. Pharynx: Oropharynx is clear. Eyes: Conjunctiva/sclera: Conjunctivae normal. Pupils: Pupils are equal, round, and reactive to light. Cardiovascular: Rate and Rhythm: Normal rate and regular rhythm. Pulses: Normal pulses. Heart sounds: Normal heart sounds. Pulmonary: Effort: Pulmonary effort is normal. Comments: Decreased breath sounds in the R middle and lower lung bai Abdominal: General: Abdomen is flat. Bowel sounds are normal. There is no distension. Palpations: Abdomen is soft. Tenderness: There is no abdominal tenderness. Musculoskeletal: General: Normal range of motion. Cervical back: Normal range of motion and neck supple. Lymphadenopathy: Cervical: No cervical adenopathy. Skin: General: Skin is warm and dry. Capillary Refill: Capillary refill takes less than 2 seconds. Comments: Nodule on R thigh, non-erythematous Neurological: General: No focal deficit present. Mental Status: He is oriented to person, place, and time. Psychiatric: Mood and Affect: Mood normal. Behavior: Behavior normal. Lab/Radiology/Diagnostic Review: I reviewed the following laboratory and imaging result(s). Micro: Lab Results Component Value Date MICROBIOLOGY Preliminary Report: No growth to date. 07/09/2022 MICROBIOLOGY Preliminary Report: No growth to date. 07/09/2022 MICROBIOLOGY Preliminary Report: No growth of fungus to date 07/09/2022 MICROBIOLOGY (.) 12/25/2021 Final Report: Moderate Haemophilus influenzae , Beta lactamase negative Few Mixed microorganisms. MICROBIOLOGY 10/07/2021 Final Report: For additional result information, see attached scanned report. MICROBIOLOGY Final Report: No growth 12/25/2019 MICROBIOLOGY Final Report: No growth 12/25/2019 MICROBIOLOGY (.) 12/21/2019 Final Report: Positive for Nadine De La Cruz Virus For additional result information, see attached scanned report. MICROBIOLOGY Final Report: No growth 12/21/2019 MICROBIOLOGY Final Report: No growth 12/21/2019 Urinalysis: Resulted in the Past 12 Months 07/09/22 1248 COLORU Yellow CLARITYU Clear SPECGRAVU 1.015 PHURINE 6.5 PROTURQL Negative GLUCOSEUR Negative KETONESU Negative BLOODUR Negative NITRITEU Negative LEUKESTUR Negative Hematology/Chemistry: CBC: Lab Results Component Value Date WBC 14.8 (H) 07/10/2022 HGB 12.0 (L) 07/10/2022 HCT 33.4 (L) 07/10/2022 LABPLAT 184 07/10/2022 NEUTOPHILPCT 33.8 07/10/2022 LYMPHOPCT 38.2 07/10/2022 MONOPCT 15.0 07/10/2022 EOSPCT 12.2 07/10/2022 CMP: Lab Results Component Value Date SODIUM 138 07/10/2022 POTASSIUM 4.5 07/10/2022 CHLORIDE 108 07/10/2022 CO2 25 07/10/2022 ANIONGAP 5 07/10/2022 GLUCOSE 81 07/10/2022 BUNSER 10 07/10/2022 CREATININE 0.77 (L) 07/10/2022 BCR NOT APPLICABLE 05/26/2017 CALCIUM 9.0 07/10/2022 PROTEIN 5.3 (L) 02/28/2022 ALBUMIN 3.0 (L) 07/10/2022 ALKPHOS 285 (H) 07/10/2022 ALT 76 (H) 07/10/2022 AST 99 (H) 07/10/2022 BILITOT 2.0 (H) 07/10/2022 Creatinine:Estimated Creatinine Clearance: 116.1 mL/min (A) (by C-G formula based on SCr of 0.77 mg/dL (L)). Resulted in the Past 12 Months 07/10/22 0047 07/09/22 1248 07/05/22 0426 CREATININE 0.77* 0.71* 0.88 Inflammatory Markers: Resulted in the Past 12 Months 10/01/21 0916 SEDRATE 9 CRP 17.4* Screening Results RPR:No results found for: LABRPR GC: No results found for: CTRACHOMATIS, NGONORRHOEAE Hepatitis Serologies: Lab Results Component Value Date HEPAIGM Nonreactive 11/30/2017 HEPBSAG Nonreactive 11/30/2017 HEPBSAB Nonreactive 08/18/2017 HEPBCAB Nonreactive 11/30/2017 HEPCAB Nonreactive 11/30/2017 Virologic Testing: HIV Screen: Lab Results Component Value Date [id number] Nonreactive 01/03/2019 CD4:No results found for: CD4ABS, CD4PCT Common Virologic Results: Lab Results Component Value Date [id number] Not Detected 04/06/2017 PPD Negative 01/17/2020 TOXOIGG Negative 12/21/2019 Diagnostics: EKG:No results found for: VR, AR, PRIMSEC, QRSIMSEC, QTIMSEC, QT, PA, RA, TA, DIAG Echo: Imaging: CT Chest W Contrast Result Date: 07/09/2022 1. Consolidation and adjacent subcentimeter nodules in the right middle lobe, partially imaged on CT dated 07/05/2022 and likely representing pneumonia. Follow- up to resolution is recommended. 2. No significant interval change in extensive thoracic lymphadenopathy as described compared to CT dated 10/01/2021. Electronically signed by: Cathleen Flanagan M.D. CT Sinus WO Contrast Result Date: 07/09/2022 1. Mucosal thickening has progressed within the sphenoid sinuses and right maxillary sinus and improved within the frontal sinuses and ethmoid air cells. No noncontrast CT evidence of complication. Dictated by: Feliciano Ahn M.D. The radiology attending physician has personally reviewed this study, and had reviewed and/or edited this written report and agrees with it. Electronically signed by: Joaquin Adams M.D. US Lower Extremity Right Limited Result Date: 07/10/2022 IMPRESSION: 1. Findings consistent with cellulitis at the lump at the anterior right thigh. 2. Nodrainable fluid collection. 3. No sonographically evident retained foreign body. Electronically signed by: Tess Crouch MD Assessment/Plan The patient is a 27 y.o. male with a PMHx of refractory ITP s/p splenectomy 2012, autoimmune hepatitis s/p orthotopic liver transplant 03/30/2009, c/b PTLD (c-Myc, EBV +) s/p R-CHOP x 1 (2016), DA-EPOCH-R x 5 (09/2017-12/2017) with IT MTX w/ C3 10/2017, achieving CR in 12/2017, persistent quantifiable CMV viremia since 06/2019 (currently on maribavir), who presents with fevers, chills, night sweats and URI symptoms. Transplant ID was consulted for antiviral recommendations for persistent CMV viremia on mirabavir. #CMV Viremia, on Mirabavir #Pneumonia, community acquired #Rhinovirus #Adenovirus #Sinusitis Patient with 2 week history of progressive cough (productive of green sputum), fever, chills, and fatigue/malaise. RVP positive for rhinovirus & adenovirus. Chest CT findings w/ RML consolidation. CT sinus w/ progressive mucosal thickening compared to prior. Patient also with persistent CMV viremia on antiviral therapy w/ mirabavir. On cefepime and azithromycin (07/09-) with blood and fungal cultures pending. Crypto, histo, and CMV genotyping studies pending. DDx includes viral versus bacterial pneumonia/pneumonitis ISO asplenia and low- dose tacrolimus. Also w/ worsening sinusitis and persistent CMV viremia. Given his stable and improving clinical picture, we'd like for him to continue on Maribavir for now and repeat a CMV PCR on 07/11 prior to changing his antiviral regimen. Our ID pharmacist ordered an AM dose for 07/10, but he will need to bring in his home doses due to a hospital shortage at this time (pt confirmed this was possible today by our team). We'd also like for him to gethis IVIg infusion (he is due on 07/11 per pt report) ISO his adenovirus infection and to order an adenovirus serum PCR. Finally, we recommend ordering a quantitative immunoglobulin panel prior to him getting the IVIg. Recommendations - Continue Mirabavir 400 mg BID (patient planning to bring from home d/t hospital shortage); given AM dose on 07/10 per ID pharmacist - Redraw CMV level on Wednesday, 07/11; Will consider starting a different antiviral agent pending repeat CMV level - Adenovirus blood PCR - Quantitative Ig panel - Mirabavir resistance testing, f/u other resistance testing - IVIg infusion (is due tomorrow per pt) ISO adenovirus on RVP We appreciate the opportunity to be involved in this patient's care. Portillo Simpson MD Internal Medicine, PGY-1 Cosigned by Cruz Forman MD at 07/11/2022 11:26 AM CDT Associated attestation - Cruz Forman MD - 07/11/2022 11:26 AM CDT I have seen and examined the patient on 07/10/2022. I agree with the findings and plan of care as documented in the resident's/fellow's note. Admit with cough, PHOTOVOLTAIC INSTALLATION TECHNICIAN swab positive for rhinovirus and adenovirus. Also has CMV viremia on maribavir. Unclear how CML VL at [facility] relate to [facility], but if same assay indicates an ~0.5. reduction in VL since May. Continue maribavir, check CMV VL Sat, check adenovi armin PCR blood. * Mary Araya, PHOTOVOLTAIC INSTALLATION TECHNICIAN - 07/10/2022 3:36 PM CDTAssociated Order(s): IP CONSULT MEDICAL [facility] ONCOLOGY Medical Oncology Initial Consult/Established Patient Date/Time of Service: 07/10/2022 Requesting Service: Hospitalist Reason for Consult: No data found Subjective HPI Mr. Nichols is a 27 y.o.male with history of refractory ITP s/p splenectomy 2012, autoimmune hepatitis s/p orthotopic liver transplant 03/30/2009, c/b PTLD (c- Myc, EBV +) s/p R-CHOP x 1 (2016), DA-EPOCH-R x 5 (09/2017-12/2017) with IT MTX w/ C3 10/2017, achieving CR in 12/2017, persistent quantifiable CMV viremia since 06/2019 (currently on maribavir w/ rising CMV levels), recent nephrolithiasis, who presents with fevers, chills, night sweats and URI symptoms. Pt admitted from ID clinic p/w low-grade fevers/chills, URI sxs, productive cough w/ green sputum. Not neutropenic though immunocompromised w/ prior splenectomy, liver transplant on tacro, CVID. Work-up notable for RVP: Adenovirus+, Rhinovirus/enterovirus +. CT sinus: Mucosal thickening progressed w ithin sphenoid sinuses and Rt maxilary sinus, improved within frontal sinuses and ethmoid. CTC w/ RML consolidation, adjacent subcm nodules likely representing PNA (+ no change in extensive thoracic LAD comp to CT 10/2021). Pdg broad infectious work-up w/ induced sputum, BCX, fungal Bcx, serum crypto Ag, serum histo Ab, urine histo Ag. Being treated w/ cefe/azithro 07/09-, supportive care for viralURI. ID consulted/following for intermittent CMV viremia since 06/2019, s/p multiple therapies w/ improved CMV levels but continued low level viremia; note indicated may need IV ganciclovir or IV foscarnet at present. He also is planned for Hepatology/Hepatology transplant consult (f/b Dr. Gresham) iso on-going (x months) elevated LFTs - on admit TB 2.4, ALP 312, AST 102, ALT 84. He also notes approx 1 month h/o Rt lower chest wall nodule (which can be difficult to find - per pt) and Rt anterior thigh nodule; not particularly bothersome - Med Onc team aware but thought 2/2 acute issues otherwise, plan to monitor. He notes feeling a bit better since admission. He notes on-going lumps/bumps as per usual w/o change, otherwise w/o questions/concerns for Med Onc team - aware of plan to followbiopsy results re: Rt anterior thigh nodule. Regarding h/o PTLD, he has a hx of c-Myc positive PTLD, EBV+, stage EMY, IPI 3 (stage, LDH, extranodal site). S/p RCHOP x1 and DA-EPOCH-R x5 (completed 12/2017), IT-MTX C3 only d/t intracranial hypotension, w/ post-C2 WA, CR at end- of treatment. No e/o recurrence though course c/b multiple episodes of progressive adenopathy w/ spontaneous resolution. F/b Dr. Gillespie. Oncology History Overview Note PMH: 1. Liver transpant x 2 for acute liver failure (autoimmune hepatitis), 1998 2. 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) 10/2013 [...] Chemotherapy R-CHOP x 1, EPOCH-R x 5--> WA after C2 (5PS 4), CR p C6 [...] inclusions and small non-necrotizing granulomas, CMV positive Active Therapy Plans for [facility] Infusion Treatment: Evusheld 300 mg/300 mg Standard Dose Current treatment: Treatment 2 (Not started) Hematology: Immune Globulin (GAMUNEX) - 10% (FERNANDEZ [...] 5 YEARS N/A 12/26/2021 LIVER TRANSPLANT 1999 SPLENECTOMY US ABDOMEN COMPLETE W LIVER DOPPLER [...] Not Currently Sexual activity: Defer Alcohol Use: Unknown Frequency of Alcohol Consumption: 2-4 times a month Average Number of Drinks: 1 or 2 Frequency of Binge Drinking: Not on file ALLERGIES No Known Allergies MEDICATIONS Medications Prior to Admission Medication Sig Dispense Refill Last Dose budesonide (Pulmicort) 0.5 mg/2 mL nebulizer solution Administer 2 mL (0.5 mg total) into each nostril daily Mix 4ml into 240ml nasal saline and perform nasal rinse 180 mL 5 maribavir 200 mg tablet Take 2 tablets (400 mg total) by mouth 2 (two) times a day 28 tablet 1 tacrolimus (PROGRAF) 0.5 mg immediate-release capsule Take 1 capsule (0.5 mg total) by mouth every other day traZODone (DESYREL) 50 mg tablet Take 1 tablet (50 mg total) by mouth nightly 30 tablet 2 ursodioL (ACTIGALL) 300 mg capsule Take 2 capsules (600 mg total) by mouth daily with dinner 180 capsule 3 REVIEW OF SYSTEMS All other systems negative except as noted under HPI. OBJECTIVE VITALS BP 102/53 (BP Location: Left arm, Patient Position: Lying) Pulse 88 Temp 36.9 ??C (98.4 ??F) (Oral) Resp 16 Ht 172.7 cm (5' 8 ) Wt 58 kg (127 lb 14.4 oz) SpO2 98% BMI 19.45 kg/m?? 24hr Min/Max: Temp Min: 36.7 ??C (98.1 ??F) Max: 36.9 ??C (98.4 ??F) Pulse Min: 76 Max: 88 BP Min: 102/53 Max: 110/67 Resp Min: 16 Max: 18 SpO2 Min: 97 % Max: 100 % Most Recent: Vitals: 07/10/22 0300 BP: 102/53 BP Location: Left arm Patient Position: Lying Pulse: 88 Resp: 16 Temp: 36.9 ??C (98.4 ??F) TempSrc: Oral SpO2: 98% Weight: Intake/Output Summary (Last 24 hours) at 07/10/2022 1537 Last data filed at 07/10/2022 0920 Gross per 24 hour Intake 490 ml Output 1650 ml Net -1160 ml PHYSICAL EXAM General Appearance: Alert, cooperative, in no acute distress. HEENT: NCAT. Neck: Supple, symmetric. Lungs: Respirations unlabored on RA. Cardiovascular: No C/C/E. Abdomen: Soft, non-distended. Extremities: Symmetrical. Able to KEN. Skin: Skin color appropriate for ethnicity. Palpable (not visible) ~0.5cm firm but mobile nodule toRt anterior/lower chest wall, non-tender. Rt anterior mid- thigh 1cm hyperpigmented, firm, less mobile, mildly tender nodule w/ <0.5cm papules just superior to this. Neurologic: A&Ox4. Normal station and coordination of movements. Sensation grossly intact. Psych: Mood and conversation appropriate. LABORATORY INTERPRETATION CBC: Recent Labs Lab Units 07/10/22 0230 WBC K/cumm 14.8* HEMOGLOBIN g/dL 12.0* HEMATOCRIT % 33.4* MCV fL 98.8* NEUTROS ABS K/cumm 5.0 Lab Results Component Value Date GLUCOSE 81 07/10/2022 CALCIUM 9.0 07/10/2022 SODIUM 138 07/10/2022 POTASSIUM 4.5 07/10/2022 CO2 25 07/10/2022 CHLORIDE 108 07/10/2022 BUNSER 10 07/10/2022 CREATININE 0.77 (L) 07/10/2022 CMP: Recent Labs Lab Units 07/10/22 0047 SODIUM mmol/L 138 POTASSIUM PLASMA mmol/L 4.5 CO2 mmol/L 25 BUN SERUM mg/dL 10 GLUCOSE mg/dL 81 CREATININE mg/dL 0.77* CALCIUM mg/dL 9.0 CHLORIDE mmol/L 108 ALBUMIN g/dL 3.0* AST Units/L 99* ALT Units/L 76* ALK PHOS Units/L 285* BILIRUBIN TOTAL mg/dL 2.0* TOTAL PROTEIN g/dL 5.4* ANIONGAP mmol/L 5 PT: Recent Labs Lab Units 07/10/22 004 PROTIME (PT) sec 12.4 PTT: Recent Labs Lab Units 07/10/22 004 APTT sec 38* A Positive RADIOLOGY/DIAGNOSTIC REVIEW CT Chest W Contrast Result Date: 07/09/2022 1. Consolidation and adjacent subcentimeter nodules in the right middle lobe, partially imaged on CT dated 07/05/2022 and likely representing pneumonia. Follow- up to resolution is recommended. 2. No significant interval change in extensive thoracic lymphadenopathy as described compared to CT dated 10/01/2021. Electronically signed by: Cathleen Flanagan M.D. CT Sinus WO Contrast Result Date: 07/09/2022 1. Mucosal thickening has progressed within the sphenoid sinuses and right maxillary sinus and improved within the frontal sinuses and ethmoid air cells. No noncontrast CT evidence of complication. Dictated by: Feliciano Ahn M.D. The radiology attending physician has personally reviewed this study, and had reviewed and/or edited this written report and agrees with it. Electronically signed by: Joaquin Adams M.D. US Lower Extremity Right Limited Result Date: 07/10/2022 IMPRESSION: 1. Findings consistent with cellulitis at the lump at the anterior right thigh. 2. Nodrainable fluid collection. 3. No sonographically evident retained foreign body. Electronically signed by: Tess Crouch MD No valid procedures specified. ASSESSMENT/ Plan 27 year old man with a history of refractory ITP s/p splenectomy 2012, autoimmune hepatitis s/p orthotopic liver transplant 03/30/2009, c/b PTLD (c- Myc, EBV +) s/p R-CHOP x 1 (2016), DA-EPOCH-R x 5 (09/2017-12/2017) with IT MTX w/ C3 10/2017, achieving CR in 12/2017, persistent quantifiable CMV viremia since 06/2019 (currently on maribavir w/ rising CMV levels), recent nephrolithiasis, who presents with fevers, chills, night sweats and URI symptoms. #Viral URI/Pneumonia: P/w low-grade fevers/chills, URI sxs, productive cough w/ green sputum. Not neutropenic though immunocompromised w/ prior splenectomy, liver transplant on tacro, CVID. -RVP: Adenovirus+, Rhinovirus/enterovirus + -CT sinus: Mucosal thickening progressed within sphenoid sinuses and Rt maxilary sinus, improved within frontal sinuses and ethmoid -CTC w/ RML consolidation, adjacent subcm nodules likely representing PNA (+ no change in extensivethoracic LAD comp to CT 10/2021) -Induced sputum, BCX, fungal Bcx, serum crypto Ag, serum histo Ab, urine histo Ag -Cefe/azithro 07/09-; supportive care for viral URI #CMV viremia: Intermittent viremia since 06/2019, s/p multiple therapies w/ improved CMV levels but continued low level viremia. F/b ID. -ID consult; may need IV ganciclovir or IV foscarnet #Elevated LFTs: On-going w/ similar ranges x months. On admit TB 2.4, ALP 312, AST 102, ALT 84. -Hepatology transplant consult #H/o liver transplant: 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 Followed by Dr. Gresham. -Liver transplant consult; cont tacro #PTLD: Hx of c-Myc positive PTLD, EBV+, stage EMY, IPI 3 (stage, LDH, extranodal site). S/p RCHOP x1 and DA-EPOCH-R x5 (completed 12/2017), IT-MTX C3 only d/t intracranial hypotension, w/ post-C2 WA, CR at end-of treatment. No e/o recurrence though course c/b multiple episodes of progressive adenopathy w/ spontaneous resolution. No acute concerns for recurrence presently though w/ Rt thigh nodule (could consider cutaneous involvement) but unclear significance. -Followed by Dr. Gillespei, on observation -Will follow skin biopsy results; if neg, no further work-up required #Rt thigh nodule: Recently noted ~1mo, fluctuant. Also w/ subcm nodule palpable to Rt lower chest wall (not visible by inspection), firm but mobile. No inciting events. -Ultrasound 07/10: C/w cellulitis, no drainable fluid collection; derm consult for biopsy, completed 07/10 -> follow path Patient and recommendations have been discussed with attending oncologist, Dr. Durant. Will follow peripherally pdg skin biopsy results. Mary Araya, ASHLEYC, MSN Division of Medical Oncology * Robert Chan MD - 07/10/2022 2:28 PM CDTAssociated Order(s): IP CONSULT TO ENT Otolaryngology - Head & Neck Surgery Consult Attending Physician: Dr. Gastelum Reason for Consult: [facility] sinusitis. had apt w/ apt w [place] today OP but admitted yesterday. Requesting Team: BMT Requesting Provider: Dr. Head Ovidio Nichols is a 27 y.o. male with a history of ITP s/p splenectomy, autoimmune hepatitis s/p liver transplant, PTLD for whom ENT is consulted for evaluation of sinusitis. The patient has a history of chronic rhinosinusitis and is followed by Dr. Gastelum. He has previously been treated with budesonide irrigations (discontinued due to dryness), nasal sprays, and courses of antibiotics. He most recently was prescribed doxycycline on 06/08 for worsening congestion. He is now admitted after developing symptoms of an upper respiratory infection. He endorses 2 weeks of subjective fevers, night sweats, green nasal drainage, and cough. His symptoms improved briefly on the doxycycline, however oncehe finished his course symptoms quickly recurred. He was admitted to the BMT service yesterday for the symptoms. Upon presentation he tested positivefor adenovirus, as well as rhino/enterovirus. He also tested positive for CMV viremia. At present, he is endorsing rhinorrhea, cough, night sweats. He denies facial pain or pressure. He denies any changes in his smell. No dyspnea. CT imaging was concerning for right middle lobe pneumonia, as well as interval progression of his pre-existing paranasal sinus disease. He is currently being treated with cefepime and azithromycin, as well as mucinex. 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) Autoimmune hepatitis (CMS/HCC) (HCC) Hypogammaglobulinemia (CMS/HCC) (HCC) 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) Immunocompromised patient (CMS/HCC) (HCC) Community acquired pneumonia Lymphadenopathy [employer] current use of immunosuppressive drug 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HCC) Fever Elevated LFTs On antiviral therapy Myalgia Muscle weakness Chronic pansinusitis Immunocompromised (CMS/HCC) (HCC) PTLD (post-transplant lymphoproliferative disorder) (HCC) Subcutaneous nodule of right lower extremity Past Surgical History: Procedure Laterality Date BIOPSY LIVER N/A 02/02/2020 BIOPSY LYMPH NODE SUPERFICIAL N/A 05/22/2014 EXCHANGE PICC LINE Left 12/24/2021 IR PICC LINE PLACEMENT > 5 YEARS N/A 12/19/2021 IR PICC LINE PLACEMENT > 5 YEARS N/A 12/26/2021 LIVER TRANSPLANT 1999 SPLENECTOMY US ABDOMEN COMPLETE W LIVER DOPPLER [...] Not Currently Sexual activity: Defer Alcohol Use: Unknown Frequency of Alcohol Consumption: 2-4 times a month Average Number of Drinks: 1 or 2 Frequency of Binge Drinking: Not on file Family History Problem Relation Age of Onset Rectal cancer Mother Rectal cancer - (Added by MARIN Conv) Diabetes type II Sister Family history of type 2 diabetes mellitus - (Added by MARIN Conv) Anesthesia problems Other No Known Problems Father No Known Allergies Medications Prior to Admission Medication Sig Dispense Refill Last Dose budesonide (Pulmicort) 0.5 mg/2 mL nebulizer solution Administer 2 mL (0.5 mg total) into each nostril daily Mix 4ml into 240ml nasal saline and perform nasal rinse 180 mL 5 maribavir 200 mg tablet Take 2 tablets (400 mg total) by mouth 2 (two) times a day 28 tablet 1 tacrolimus (PROGRAF) 0.5 mg immediate-release capsule Take 1 capsule (0.5 mg total) by mouth every other day traZODone (DESYREL) 50 mg tablet Take 1 tablet (50 mg total) by mouth nightly 30 tablet 2 ursodioL (ACTIGALL) 300 mg capsule Take 2 capsules (600 mg total) by mouth daily with dinner 180 capsule 3 Current Outpatient Medications Medication Instructions budesonide (PULMICORT) 0.5 mg, each nostril, Daily, Mix 4ml into 240ml nasal saline and perform nasal rinse maribavir 400 mg, oral, 2 times daily tacrolimus (PROGRAF) 0.5 mg, oral, Every other day traZODone (DESYREL) 50 mg, oral, Nightly ursodioL (ACTIGALL) 600 mg, oral, Daily with dinner Review of Systems: An 11 point review of systems was performed and was negative except as per HPI. Objective Physical Exam: Vitals: 07/09/22 1944 07/09/22201207/09/22 2313 07/10/22 0300 BP: 105/52 109/54 102/53 BP Location: Right arm Right arm Left arm Patient Position: Lying Lying Lying Pulse: 82 82 88 Resp: 18 18 16 Temp: 36.8 ??C (98.2 ??F) 36.9 ??C (98.4 ??F) 36.9 ??C (98.4 ??F) TempSrc: Oral Oral Oral SpO2: 100% 97% 98% Weight: 58 kg (127 lb 14.4 oz) Height: 172.7 cm (5' 8 ) General: Awake, NAD Head: NC, AT. Face is nontender to palpation. Eyes: Sclera white, no injection or chemosis, no periorbital edema Ears: Auricles not deformed, no drainage Nose: No nasal bleeding, no flaring Mouth: No OC/OP bleeding, tolerating secretions, MMM Neck: Soft and flat CV: RRR Pulm: NLB, no stridor, no stertor Skin: WWP Neuro: OE, R, FC; AOx3; CN intact; MAEWx4 Lab/Radiology/Diagnostic Review: Laboratory review: Lab results in the last 12 hours: Recent Results (from the past 12 hour(s)) Aerobic culture and gram stain Sputum, induced Sputum (Cytology) Collection Time: 07/10/22 6:57 AM Specimen: Sputum (Cytology); Sputum, induced Result Value Ref Range Direct Specimen Exam Stain: Abundant squamous epithelial cells seen indicating excessive oropharyngeal contamination. Culture will not be processed further. Please submit another specimen. Smear results called to and read back by: Lisandra Sinha RN [phone] on 07/10/2022 08:51:28 by: Robel Del Angel MT Immunoglobulin profile Collection Time: 07/10/22 8:52 AM Result Value Ref Range Immunoglobulin G 805.0 700.0 - 1,600.0 mg/dL Immunoglobulin A <50.0 (L) 70.0 - 400.0 mg/dL Immunoglobulin M <25.0 (L) 40.0 - 230.0 mg/dL Procedures performed: Rigid nasal endoscopy Given this patient's existing sinus disease and concern for progression, rigid nasal endoscopy was indicated. The patient was verbally consented. He was positioned upright in his bed. His nasal passages were then decongested with oxymetazoline. The 0 degree endoscope was then passed gently into both nasal passages. Nasal mucosa appeared edematous with crusting and thick, whitish nasal drainage. Assessment/Plan 27 y.o. male with history of chronic sinusitis who is currently admitted for URI symptoms includingcough, fever, chills, nasal drainage. +Rhino/enterovirus, +adenovirus, +CMV viremia. Afebrile sinceadmission. CT imaging concerning for interval progression of paranasal sinus disease, most notably in the right maxillary sinus and sphenoid sinuses. -No acute ENT intervention -Continue antibiotics and supportive care -Budesonide irrigations BID if patient will tolerate. If patient cannot tolerate due to history of dryness with these irrigations, can try neilmed saline irrigations Thank you for the interesting consult. Please call if you have further questions or concerns. Robert Chan MD PGY-2 Otolaryngology-Head & Neck Surgery QUESTIONS: Robert Chan MD For Questions during Weekdays Daytime: [facility] secure chat or phone call: AMION>Otolaryngology> [facility] Existing Consults After Hours: AMION>Otolaryngology> [facility] Resident Primary (New Consults) ENT scheduling line: [phone] (please include in discharge paperwork as needed) Cosigned by Harry Sadler MD at 07/11/2022 10:36 AM CDT Associated attestation - Harry Sadler MD - 07/11/2022 10:36 AM CDT I have seen and examined the patient on 07/11/22. I agree with the findings and plan of care as documented in the resident's/fellow's note.. * Alexandra Silva MD PhD - 07/10/2022 12:43 PM CDTAssociated Order(s): IP CONSULT TO DERMATOLOGY Dermatology Consult Reason for Consult: r femur negro. onc would like biopsy Chief Complaint: Patient is a 27 y.o. male with chief complaint of fever. HPI: 27yo M w/ hx of refractory ITP s/p splenectomy 2012, autoimmune hepatitis s/p orthotopic liver transplant 03/30/2009, c/b PTLD (c-Myc, EBV +) s/p chemo with complete remission who is admitted for fevers, chills, night sweats. Deratmology consulted for a bump on right thigh present for about a month now. Started a small area, has continued to grow. Not symptomatic, hasn't opened/expressed any fluid. He has had several cysts before, all removed. Also has acne on thighs. Past Medical History: Diagnosis Date Cancer (CMS/HCC) [...] 5 YEARS N/A 12/26/2021 LIVER TRANSPLANT 1999 SPLENECTOMY US ABDOMEN COMPLETE W LIVER DOPPLER (C) Right 10/18/2018 US GUIDED BIOPSY LIVER N/A 10/18/2018 US GUIDED BIOPSY LIVER N/A 05/14/2020 US GUIDED BIOPSY LYMPH NODE SUPERFICIAL LEFT N/A 10/13/2019 US GUIDED BIOPSY LYMPH NODE SUPERFICIAL LEFT N/A 10/07/2021 Medications Prior to Admission Medication Sig Dispense Refill Last Dose budesonide (Pulmicort) 0.5 mg/2 mL nebulizer solution Administer 2 mL (0.5 mg total) into each nostril daily Mix 4ml into 240ml nasal saline and perform nasal rinse 180 mL 5 maribavir 200 mg tablet Take 2 tablets (400 mg total) by mouth 2 (two) times a day 28 tablet 1 tacrolimus (PROGRAF) 0.5 mg immediate-release capsule Take 1 capsule (0.5 mg total) by mouth every other day traZODone (DESYREL) 50 mg tablet Take 1 [...] Not Currently Sexual activity: Defer Alcohol Use: Unknown Frequency of Alcohol Consumption: 2-4 times a month Average Number of Drinks: 1 or 2 Frequency of Binge Drinking: Not on file Family History Problem Relation Age of Onset Rectal cancer Mother Rectal cancer - (Added by TW Conv) Diabetes type II Sister Family history of type 2 diabetes mellitus - (Added by TW Conv) Anesthesia problems Other No Known Problems Father Review of Systems: Review of systems per HPI and otherwise all other systems are negative. Vitals: 24hr Min/Max: Temp Min: 36.7 ??C (98.1 ??F) Max: 36.9 ??C (98.4 ??F) Pulse Min: 76 Max: 88 BP Min: 102/53 Max: 110/67 Resp Min: 16 Max: 18 SpO2 Min: 97 % Max: 100 % Most Recent: Vitals: 07/10/22 0300 BP: 102/53 Pulse: 88 Resp: 16 Temp: 36.9 ??C (98.4 ??F) SpO2: 98% Physical Exam: Gen: WD, WN, NAD ; Neuro: A&O ; Psyc: Normal mood and affect Skin exam: Inspected the Scalp/Hair, Head/Face, Conjunctivae/Lids, Oropharynx/Lips, Neck, R. Upper Extremity, L. Upper Extremity, Chest/Breast, Abdomen, Back, R. Lower Extremity, L. Lower Extremity Examination normal with the following exceptions: ~2.5cm subcutaneous firm nodule on right inner thigh with no clear central punctum Several erythematous papules on thighs Well healed surgical scars on abdomen Lab/Radiology/Diagnostic Review: Reviewed ASSESSMENT and PLAN: Neoplasm On right inner thigh Ddx: cyst vs. Less likely other neoplasm like pilomatricoma/others Punch biopsy performed today as per procedure note. Will need suture removal around 07/13. Patient seen and staffed with Dr. Dewitt. Dermatology will follow with biopsy results. Please do not hesitate to reach out with questions or concerns at the following numbers: [phone] days M-F 8AM-5PM [phone] nights/weekends/holidays M-F 5PM-8AM, Sa/[place]undy 24/05, holidays 24/05 Kiera Silva MD PhD PGY4- Dermatology Cosigned by Leeanna Dewitt MD at 07/13/2022 5:19 PM CDT Associated attestation - Leeanna Dewitt MD - 07/13/2022 5:19 PM CDT ATTESTATION: I have seen and examined the patient, on 07/10/2022. I agree with the findings and plan of care as documented in the resident's note. Leeanna Dewitt MD documented in this encounter Nursing Notes * Arlette Sandhu RN - 07/09/2022 12:30 PM CDT Pt arrived to the [facility] today to be evaluated by the PHOTOVOLTAIC INSTALLATION TECHNICIAN and to be admitted. Per PHOTOVOLTAIC INSTALLATION TECHNICIAN orders, PIV was placed, blood cultures x 2 and labs were drawn, urinalysis and PHOTOVOLTAIC INSTALLATION TECHNICIAN swab collected, chest CT completed, and IV NS continuous started. Pt tolerated treatment well and vitals remained wnl. Report was given to SHAILESH Baig and pt was transferred via wheelchair by CT to [facility]. documented in this encounter Miscellaneous Notes * Result Encounter Note - Alexandra Silva MD PhD - 07/12/2022 3:30 PM CDT Called patient and left voicemail for the following - his pathology findings were difficult to interpret and would recommend follow up in dermatology clinic for further assessment since he is alreadydischarged. Provided with phone number to call and we will also have our schedulers reach him for an appointment in the next 2 weeks. * Plan of Care - Natasha Lopez RN - 07/12/2022 1:32 PM CDT Clinical Goals for the Shift: patient will have stable vss Problem: Activity: Goal: Ability to implement measures to reduce episodes of fatigue will improve 07/12/2022 1332 by Natasha Lopez RN Outcome: Adequate for Discharge 07/12/2022 1039 by Natasha Lopez RN Outcome: Progressing Problem: Bowel/Gastric: Goal: Will not experience complications related to bowel motility 07/12/2022 1332 by Natasha Lopez RN Outcome: Adequate for Discharge 07/12/2022 1039 by Natasha Lopez RN Outcome: Progressing Problem: Lack of Knowledge: Goal: Knowledge of diagnostic tests will improve 07/12/2022 1332 by Natasha Lopez RN Outcome: Adequate for Discharge 07/12/2022 1039 by Natasha Lopez RN Outcome: Progressing Goal: Knowledge of disease or condition will improve 07/12/2022 1332 by Natasha Lopez RN Outcome: Adequate for Discharge 07/12/2022 1039 by Natasha Lopez RN Outcome: Progressing Goal: Knowledge of the prescribed therapeutic regimen will improve 07/12/2022 1332 by Natasha Lopez RN Outcome: Adequate for Discharge 07/12/2022 1039 by Natasha Lopez RN Outcome: Progressing Goal: Knowledge of pain management will improve 07/12/2022 1332 by Natasha Lopez RN Outcome: Adequate for Discharge 07/12/2022 1039 by Natasha Lopez RN Outcome: Progressing Problem: Coping: Goal: Ability to identify and develop effective coping behavior will improve 07/12/2022 1332 by Natasha Lopez RN Outcome: Adequate for Discharge 07/12/2022 1039 by Natasha Lopez RN Outcome: Progressing Problem: Fluid Volume: Goal: Will maintain adequate fluid volume 07/12/2022 1332 by Natasha Lopez RN Outcome: Adequate for Discharge 07/12/2022 1039 by Natasha Lopez RN Outcome: Progressing Problem: Health Behavior: Goal: Compliance with treatment plan for underlying cause of condition will improve 07/12/2022 1332 by Natasha Lopez RN Outcome: Adequate for Discharge 07/12/2022 1039 by Natasha Lopez RN Outcome: Progressing Goal: Ability to manage health-related needs will improve 07/12/2022 1332 by Natasha Lopez RN Outcome: Adequate for Discharge 07/12/2022 1039 by Natasha Lopez RN Outcome: Progressing Goal: Identification of resources available to assist in meeting health care needs will improve 07/12/2022 1332 by Natasha Lopez RN Outcome: Adequate for Discharge 07/12/2022 1039 by Natasha Lopez RN Outcome: Progressing Problem: Medication: Goal: Compliance with prescribed medication regimen will improve 07/12/2022 1332 by Natasha Lopez RN Outcome: Adequate for Discharge 07/12/2022 1039 by Natasha Lopez RN Outcome: Progressing Goal: Risk for medication side effects will decrease 07/12/2022 1332 by Natasha Lopez RN Outcome: Adequate for Discharge 07/12/2022 1039 by Natasha Lopez RN Outcome: Progressing Problem: Nutritional: Goal: Maintenance of adequate nutrition will improve 07/12/2022 1332 by Natasha Lopez RN Outcome: Adequate for Discharge 07/12/2022 1039 by Natasha Lopez RN Outcome: Progressing Problem: Physical Regulation: Goal: Complications related to the disease process, condition or treatment will be avoided or minimized 07/12/2022 1332 by Natasha Lopez RN Outcome: Adequate for Discharge 07/12/2022 1039 by Natasha Lopez RN Outcome: Progressing Goal: Ability to maintain clinical measurements within normal limits will improve 07/12/2022 1332 by Natasha Lopez RN Outcome: Adequate for Discharge 07/12/2022 1039 by Natasha Lopez RN Outcome: Progressing Problem: Respiratory: Goal: Ability to maintain adequate ventilation will improve 07/12/2022 1332 by Natasha Lopez RN Outcome: Adequate for Discharge 07/12/2022 1039 by Natasha Lopez RN Outcome: Progressing Problem: Sensory: Goal: General experience of comfort will improve 07/12/2022 1332 by Natasha Lopez RN Outcome: Adequate for Discharge 07/12/2022 1039 by Natasha Lopez RN Outcome: Progressing Problem: Skin Integrity: Goal: Risk for impaired skin integrity will decrease 07/12/2022 1332 by Natasha Lopez RN Outcome: Adequate for Discharge 07/12/2022 1039 by Natasha Lopez RN Outcome: Progressing Problem: Health Behavior: Goal: Understanding of discharge needs will improve 07/12/2022 1332 by Natasha Lopez RN Outcome: Adequate for Discharge 07/12/2022 1039 by Natasha Lopez RN Outcome: Progressing * Plan of Care - Natasha Lopez RN - 07/12/2022 10:39 AM CDT Clinical Goals for the Shift: patient will have stable vss Summary: Patient alert and oriented. Patient on RA. Patient up ad deonte. Patient HR and bp WNL. Patient tolerating oral intake. Patient switched to oral abx this shift. Patient voiding without difficulty at this time. Patient dressing is clean dry intact. Will continue to monitor throughout the shift. Problem: Activity: Goal: Ability to implement measures to reduce episodes of fatigue will improve Outcome: Progressing Problem: Bowel/Gastric: Goal: Will not experience complications related to bowel motility Outcome: Progressing Problem: Lack of Knowledge: Goal: Knowledge of diagnostic tests will improve Outcome: Progressing Goal: Knowledge of disease or condition will improve Outcome: Progressing Goal: Knowledge of the prescribed therapeutic regimen will improve Outcome: Progressing Goal: Knowledge of pain management will improve Outcome: Progressing Problem: Coping: Goal: Ability to identify and develop effective coping behavior will improve Outcome: Progressing Problem: Fluid Volume: Goal: Will maintain adequate fluid volume Outcome: Progressing Problem: Health Behavior: Goal: Compliance with treatment plan for underlying cause of condition will improve Outcome: Progressing Goal: Ability to manage health-related needs will improve Outcome: Progressing Goal: Identification of resources available to assist in meeting health care needs will improve Outcome: Progressing Problem: Medication: Goal: Compliance with prescribed medication regimen will improve Outcome: Progressing Goal: Risk for medication side effects will decrease Outcome: Progressing Problem: Nutritional: Goal: Maintenance of adequate nutrition will improve Outcome: Progressing Problem: Physical Regulation: Goal: Complications related to the disease process, condition or treatment will be avoided or minimized Outcome: Progressing Goal: Ability to maintain clinical measurements within normal limits will improve Outcome: Progressing Problem: Respiratory: Goal: Ability to maintain adequate ventilation will improve Outcome: Progressing Problem: Sensory: Goal: General experience of comfort will improve Outcome: Progressing Problem: Skin Integrity: Goal: Risk for impaired skin integrity will decrease Outcome: Progressing Problem: Health Behavior: Goal: Understanding of discharge needs will improve Outcome: Progressing * Plan of Care - Andrew Gray RN - 07/11/2022 7:21 PM CDT Goals: Clinical Goals for the Shift: VSS, Restful Night, Free from falls Problem: Activity: Goal: Ability to implement measures to reduce episodes of fatigue will improve Outcome: Progressing Problem: Bowel/Gastric: Goal: Will not experience complications related to bowel motility Outcome: Progressing Problem: Lack of Knowledge: Goal: Knowledge of diagnostic tests will improve Outcome: Progressing Goal: Knowledge of disease or condition will improve Outcome: Progressing Goal: Knowledge of the prescribed therapeutic regimen will improve Outcome: Progressing Goal: Knowledge of pain management will improve Outcome: Progressing Problem: Coping: Goal: Ability to identify and develop effective coping behavior will improve Outcome: Progressing Problem: Fluid Volume: Goal: Will maintain adequate fluid volume Outcome: Progressing Problem: Health Behavior: Goal: Compliance with treatment plan for underlying cause of condition will improve Outcome: Progressing Goal: Ability to manage health-related needs will improve Outcome: Progressing Goal: Identification of resources available to assist in meeting health care needs will improve Outcome: Progressing Problem: Medication: Goal: Compliance with prescribed medication regimen will improve Outcome: Progressing Goal: Risk for medication side effects will decrease Outcome: Progressing Problem: Nutritional: Goal: Maintenance of adequate nutrition will improve Outcome: Progressing Problem: Physical Regulation: Goal: Complications related to the disease process, condition or treatment will be avoided or minimized Outcome: Progressing Goal: Ability to maintain clinical measurements within normal limits will improve Outcome: Progressing Problem: Respiratory: Goal: Ability to maintain adequate ventilation will improve Outcome: Progressing Problem: Sensory: Goal: General experience of comfort will improve Outcome: Progressing Problem: Skin Integrity: Goal: Risk for impaired skin integrity will decrease Outcome: Progressing Problem: Health Behavior: Goal: Understanding of discharge needs will improve Outcome: Progressing * Plan of Janeth - Kamilah Gonzalez RN - 07/11/2022 1:44 PM CDT Goals: Clinical Goals for the Shift: remain free from falls, vss, tolerate IVIG Summary: Problem: Activity: Goal: Ability to implement measures to reduce episodes of fatigue will improve Outcome: Progressing Problem: Bowel/Gastric: Goal: Will not experience complications related to bowel motility Outcome: Progressing Problem: Lack of Knowledge: Goal: Knowledge of diagnostic tests will improve Outcome: Progressing Goal: Knowledge of disease or condition will improve Outcome: Progressing Goal: Knowledge of the prescribed therapeutic regimen will improve Outcome: Progressing Goal: Knowledge of pain management will improve Outcome: Progressing Problem: Coping: Goal: Ability to identify and develop effective coping behavior will improve Outcome: Progressing Problem: Fluid Volume: Goal: Will maintain adequate fluid volume Outcome: Progressing Problem: Health Behavior: Goal: Compliance with treatment plan for underlying cause of condition will improve Outcome: Progressing Goal: Ability to manage health-related needs will improve Outcome: Progressing Goal: Identification of resources available to assist in meeting health care needs will improve Outcome: Progressing Problem: Medication: Goal: Compliance with prescribed medication regimen will improve Outcome: Progressing Goal: Risk for medication side effects will decrease Outcome: Progressing Problem: Nutritional: Goal: Maintenance of adequate nutrition will improve Outcome: Progressing Problem: Physical Regulation: Goal: Complications related to the disease process, condition or treatment will be avoided or minimized Outcome: Progressing Goal: Ability to maintain clinical measurements within normal limits will improve Outcome: Progressing Problem: Respiratory: Goal: Ability to maintain adequate ventilation will improve Outcome: Progressing Problem: Sensory: Goal: General experience of comfort will improve Outcome: Progressing Problem: Skin Integrity: Goal: Risk for impaired skin integrity will decrease Outcome: Progressing Problem: Health Behavior: Goal: Understanding of discharge needs will improve Outcome: Progressing * Plan of Care - Andrew Gray RN - 07/10/2022 7:42 PM CDT Goals: Clinical Goals for the Shift: VSS, Restful Night, Free from falls Problem: Activity: Goal: Ability to implement measures to reduce episodes of fatigue will improve Outcome: Progressing Problem: Bowel/Gastric: Goal: Will not experience complications related to bowel motility Outcome: Progressing Problem: Lack of Knowledge: Goal: Knowledge of diagnostic tests will improve Outcome: Progressing Goal: Knowledge of disease or condition will improve Outcome: Progressing Goal: Knowledge of the prescribed therapeutic regimen will improve Outcome: Progressing Goal: Knowledge of pain management will improve Outcome: Progressing Problem: Coping: Goal: Ability to identify and develop effective coping behavior will improve Outcome: Progressing Problem: Fluid Volume: Goal: Will maintain adequate fluid volume Outcome: Progressing Problem: Health Behavior: Goal: Compliance with treatment plan for underlying cause of condition will improve Outcome: Progressing Goal: Ability to manage health-related needs will improve Outcome: Progressing Goal: Identification of resources available to assist in meeting health care needs will improve Outcome: Progressing Problem: Medication: Goal: Compliance with prescribed medication regimen will improve Outcome: Progressing Goal: Risk for medication side effects will decrease Outcome: Progressing Problem: Nutritional: Goal: Maintenance of adequate nutrition will improve Outcome: Progressing Problem: Physical Regulation: Goal: Complications related to the disease process, condition or treatment will be avoided or minimized Outcome: Progressing Goal: Ability to maintain clinical measurements within normal limits will improve Outcome: Progressing Problem: Respiratory: Goal: Ability to maintain adequate ventilation will improve Outcome: Progressing Problem: Sensory: Goal: General experience of comfort will improve Outcome: Progressing Problem: Skin Integrity: Goal: Risk for impaired skin integrity will decrease Outcome: Progressing Problem: Health Behavior: Goal: Understanding of discharge needs will improve Outcome: Progressing * Plan of Janeth - Kamilah Gonzalez RN - 07/10/2022 5:33 PM CDT Goals: Clinical Goals for the Shift: remain free from falls, vss Summary: Problem: Activity: Goal: Ability to implement measures to reduce episodes of fatigue will improve Outcome: Progressing Problem: Bowel/Gastric: Goal: Will not experience complications related to bowel motility Outcome: Progressing Problem: Lack of Knowledge: Goal: Knowledge of diagnostic tests will improve Outcome: Progressing Goal: Knowledge of disease or condition will improve Outcome: Progressing Goal: Knowledge of the prescribed therapeutic regimen will improve Outcome: Progressing Goal: Knowledge of pain management will improve Outcome: Progressing Problem: Coping: Goal: Ability to identify and develop effective coping behavior will improve Outcome: Progressing Problem: Fluid Volume: Goal: Will maintain adequate fluid volume Outcome: Progressing Problem: Health Behavior: Goal: Compliance with treatment plan for underlying cause of condition will improve Outcome: Progressing Goal: Ability to manage health-related needs will improve Outcome: Progressing Goal: Identification of resources available to assist in meeting health care needs will improve Outcome: Progressing Problem: Medication: Goal: Compliance with prescribed medication regimen will improve Outcome: Progressing Goal: Risk for medication side effects will decrease Outcome: Progressing Problem: Nutritional: Goal: Maintenance of adequate nutrition will improve Outcome: Progressing Problem: Physical Regulation: Goal: Complications related to the disease process, condition or treatment will be avoided or minimized Outcome: Progressing Goal: Ability to maintain clinical measurements within normal limits will improve Outcome: Progressing Problem: Respiratory: Goal: Ability to maintain adequate ventilation will improve Outcome: Progressing Problem: Sensory: Goal: General experience of comfort will improve Outcome: Progressing Problem: Skin Integrity: Goal: Risk for impaired skin integrity will decrease Outcome: Progressing Problem: Health Behavior: Goal: Understanding of discharge needs will improve Outcome: Progressing * Assessment & Plan Note - Robel Tan MD - 07/09/2022 11:15 PM CDT Associated Problem(s): 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HCC) CMV DNA positivity since at least April [...] fungal serologies and CMV DNA PCR pending * Assessment & Plan Note - Robel Tan MD - 07/09/2022 11:15 PM CDT Associated Problem(s): 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 S/p RCHOP x1 and DA-EPOCH-R x5 (completed 12/2017), IT-MTX C3 only d/t intracranial hypotension, w/ post-C2 WA, CR at end-of treatment. No e/o recurrence though course complicated by multiple episodes of progressive annika opathy w/ spontaneous resolution. -Followed by Dr. 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 Followed by Dr. Gresham. -Cont tacro 0.5 mg BID -Liver team consulted * Assessment & Plan Note - Robel Tan MD - 07/09/2022 11:14 PM CDT Associated Problem(s): Elevated LFTs Recently w/ elevated LFTs, now appear down-trending. Low suspicion for adenovirus or CMV contributing given improvement -Trend LFTs * Assessment & Plan Note - Robel Tan MD - 07/09/2022 11:14 PM CDT Associated Problem(s): Subcutaneous nodule of right lower extremity Indurated soft tissue nodule with overlying erythema, mildly tender. First noticed ~1 month ago. Denies any arthopod bites or known exposure or trauma. - Consider ultrasound to assess for drainable collection - Dermatology consult for potential biopsy, possible disseminated infection * Assessment & Plan Note - Robel Tan MD - 07/09/2022 11:12 PM CDT Associated Problem(s): Community acquired pneumonia Adenovirus+, Rhinovirus/enterovirus +. Predominantly pharyngitis/upper respiratory symptoms, with chills, low grade fevers and night sweats at home ~1- [address] chest with evidence of RML consolidation, may represent concomitant bacterial pneumonia. - Supportive care for viral URI - Blood cultures pending, fungal serologies pending - Induced sputum - Cefepime, azithromycin for CAP coverage. Can de-escalate pending blood cultures * Plan of Care - Andrew Gray RN - 07/09/2022 10:42 PM CDT Goals: Problem: Activity: Goal: Ability to implement measures to reduce episodes of fatigue will improve Outcome: Progressing Problem: Bowel/Gastric: Goal: Will not experience complications related to bowel motility Outcome: Progressing Problem: Lack of Knowledge: Goal: Knowledge of diagnostic tests will improve Outcome: Progressing Goal: Knowledge of disease or condition will improve Outcome: Progressing Goal: Knowledge of the prescribed therapeutic regimen will improve Outcome: Progressing Goal: Knowledge of pain management will improve Outcome: Progressing Problem: Coping: Goal: Ability to identify and develop effective coping behavior will improve Outcome: Progressing Problem: Fluid Volume: Goal: Will maintain adequate fluid volume Outcome: Progressing Problem: Health Behavior: Goal: Compliance with treatment plan for underlying cause of condition will improve Outcome: Progressing Goal: Ability to manage health-related needs will improve Outcome: Progressing Goal: Identification of resources available to assist in meeting health care needs will improve Outcome: Progressing Problem: Medication: Goal: Compliance with prescribed medication regimen will improve Outcome: Progressing Goal: Risk for medication side effects will decrease Outcome: Progressing Problem: Nutritional: Goal: Maintenance of adequate nutrition will improve Outcome: Progressing Problem: Physical Regulation: Goal: Complications related to the disease process, condition or treatment will be avoided or minimized Outcome: Progressing Goal: Ability to maintain clinical measurements within normal limits will improve Outcome: Progressing Problem: Respiratory: Goal: Ability to maintain adequate ventilation will improve Outcome: Progressing Problem: Sensory: Goal: General experience of comfort will improve Outcome: Progressing Problem: Skin Integrity: Goal: Risk for impaired skin integrity will decrease Outcome: Progressing * Subjective & Objective - Robel Tan MD - 07/09/2022 9:11 PM CDT Oncology Hospitalist History & Physical Chief Complaint: Patient is a 27 y.o. male with chief complaint of fevers. Subjective HPI: Mr. Nichols is a pleasant 27 year old man with a history of refractory ITP s/p splenectomy 2012, autoimmune hepatitis s/p orthotopic liver transplant 03/30/2009, c/b PTLD (c-Myc, EBV +) s/p R-CHOP x 1 (2016), DA-EPOCH-R x 5 (09/2017-12/2017) with IT MTX w/ C3 10/2017, achieving CR in 12/2017, now with persistent quantifiable CMV viremia since 06/2019. Cancer Staging No matching staging information was found for the patient. Oncology History Overview Note PMH: 1. Liver transpant x 2 for acute liver failure (autoimmune hepatitis), 1998 2. 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) 10/2013 [...] Chemotherapy R-CHOP x 1, EPOCH-R x 5--> WA after C2 (5PS 4), CR p C6 [...] inclusions and small non-necrotizing granulomas, CMV positive Active Therapy Plans for [facility] Treatment: Evusheld 300 mg/300 mg Standard Dose Current treatment: Treatment 2 (Not started) Hematology: Immune Globulin (GAMUNEX) - 10% (FERNANDEZ ONLY) Current treatment: Treatment 3 (Planned for 12/04/2020) Following planned treatment: Treatment 4 (Planned for 01/01/2021) Past Medical History: Diagnosis Date Cancer (CMS/HCC) [...] 5 YEARS N/A 12/26/2021 LIVER TRANSPLANT 1999 SPLENECTOMY US ABDOMEN COMPLETE W LIVER DOPPLER (C) Right 10/18/2018 US GUIDED BIOPSY LIVER N/A 10/18/2018 US GUIDED BIOPSY LIVER N/A 05/14/2020 US GUIDED BIOPSY LYMPH NODE SUPERFICIAL LEFT N/A 10/13/2019 US GUIDED BIOPSY LYMPH NODE SUPERFICIAL LEFT N/A 10/07/2021 No Known Allergies Medications Prior to Admission Medication Sig Dispense Refill Last Dose budesonide (Pulmicort) 0.5 mg/2 mL nebulizer solution Administer 2 mL (0.5 mg total) into each nostril daily Mix 4ml into 240ml nasal saline and perform nasal rinse 180 mL 5 maribavir 200 mg tablet Take 2 tablets (400 mg total) by mouth 2 (two) times a day 28 tablet 1 tacrolimus (PROGRAF) 0.5 mg immediate-release capsule Take 1 capsule (0.5 mg total) by mouth every other day traZODone (DESYREL) 50 mg tablet Take 1 tablet (50 mg total) by mouth nightly 30 tablet 2 ursodioL (ACTIGALL) 300 mg capsule Take 2 capsules (600 mg total) by mouth daily with dinner 180 capsule 3 Current Facility-Administered Medications: acetaminophen (TYLENOL) tablet 650 mg, 650 mg, oral, Q6H PRN, Robel Tan MD aluminum & magnesium agvhloixf-lsxnsrpoumn-otqhdrzqgghexou-lidocaine (MAGIC MOUTHWASH) oral suspension 1-1-1 15 mL, 15 mL, swish & swallow, QID PRN, Robel Tan MD azithromycin (ZITHROMAX) tablet 500 mg, 500 mg, oral, Daily, Robel Tan MD bacitracin-polymyxin B (POLYSPORIN) 500-10,000 unit/gram ointment tube 1 application, 1 application, topical, Q4H PRN, Robel Tan MD camphor-menthoL (SARNA) 0.5-0.5 % lotion, , topical, Q2H PRN, Robel Tan MD cefepime (MAXIPIME) 1,000 mg/10 mL in sterile water (premix) 1,000 mg, 1,000 mg, intravenous, Q8H PIPPA, Robel Tan MD enoxaparin (LOVENOX) syringe 40 mg, 40 mg, subcutaneous, Daily-2100, Robel Tan MD fluticasone propionate (FLONASE) 50 mcg/actuation nasal spray 2 spray, 2 spray, each nostril, Daily, Khushi Cosme, PHOTOVOLTAIC INSTALLATION TECHNICIAN, 2 spray at 07/09/22 1713 heparin 10 unit/mL flush 20-50 Units, 2-5 mL, intra-catheter, PRN, Robel Tan MD heparin 10 unit/mL flush 20-50 Units, 2-5 mL, intra-catheter, PRN, Robel Tan MD heparin 10 unit/mL flush 50 Units, 5 mL, intra-catheter, BID, Robel Tan MD heparin 10 unit/mL flush 50 Units, 5 mL, intra-catheter, Q12H PIPPA, Robel Tan MD heparin 100 unit/mL injection 500 Units, 5 mL, intra-catheter, Once, Robel Tan MD loperamide (IMODIUM) capsule 2 mg, 2 mg, oral, Q1H PRN, Robel Tan MD magnesium sulfate 4 g/100 mL in water (premix) 4 g, 4 g, intravenous, Q4H PRN, Robel Tan MD magnesium sulfate 6 g in sodium chloride 0.9% 250 mL IVPB, 6 g, intravenous, Q4H PRN, Robel Tan MD polyvinyl alcohol-povidone (REFRESH CLASSIC) 1.4-0.6 % ophthalmic solution 2 drop, 2 drop, each eye, Q4H PRN, Robel Tan MD potassium chloride ER (KLOR-CON) extended release tablet 40 mEq, 40 mEq, oral, Q2H PRN, Robel Tan MD prochlorperazine (COMPAZINE) tablet 5 mg, 5 mg, oral, Q6H PRN OR prochlorperazine (COMPAZINE) injection 5 mg, 5 mg, intravenous, Q6H PRN, Robel Tan MD sodium chloride (OCEAN) 0.65 % nasal spray 2 spray, 2 spray, each nostril, Q1H PRN, Robel Tan MD sodium chloride 0.9% flush 10 mL, 10 mL, intra-catheter, Once, Robel Tan MD sodium chloride 0.9% flush 10 mL, 10 mL, intra-catheter, Q12H PIPPA, Robel Tan MD sodium chloride 0.9% flush 10-20 mL, 10-20 mL, intra-catheter, PRN, Robel Tan MD sodium chloride 0.9% infusion, 125 mL/hr, intravenous, Continuous, Khushi Cosme, AIDEN, Last Rate: 125 mL/hr at 07/09/22 1348, 125 mL/hr at 07/09/22 1348 sodium chloride 0.9% infusion, 30 mL/hr, intravenous, Continuous PRN, Robel Tan MD sodium phosphate - potassium phosphate (K-PHOS NEUTRAL) tablet 500 mg, 500 mg, oral, Daily PRN, Robel Tan MD tacrolimus (PROGRAF) immediate-release capsule 0.5 mg, 0.5 mg, oral, Every other day, Robel Tan MD [START ON 07/10/2022] ursodioL (ACTIGALL) capsule 600 mg, 600 mg, oral, Daily with dinner, Robel Tan MD white petrolatum-mineral oiL (EUCERIN) cream, , topical, Q2H PRN, Robel Tan MD Family History Problem Relation Age of Onset [...] Not Currently Sexual activity: Defer Alcohol Use: Unknown Frequency of Alcohol Consumption: 2-4 times a month Average Number of Drinks: 1 or 2 Frequency of Binge Drinking: Not on file Review of Systems {Ros - [id number]} Review of Systems Objective Vitals: Arrival Vitals Temp 07/09/22 1231 36.7 ??C (98.1 ??F) Pulse 07/09/22 1231 74 Resp 07/09/22 1231 18 BP 07/09/22 1231 117/74 SpO2 07/09/22 1231 98 % Temp src 07/09/22 1231 Oral Heart Rate Source 07/09/22 1231 Monitor Patient Position 07/09/22 1231 Sitting BP Location 07/09/22 1611 Right arm FiO2 (%) -- 24hr Min/Max: Temp Min: 36.6 ??C (97.9 ??F) Max: 36.8 ??C (98.2 ??F) Pulse Min: 74 Max: 82 BP Min: 105/52 Max: 117/74 Resp Min: 18 Max: 18 SpO2 Min: 97 % Max: 100 % Most Recent : Vitals: 07/09/222012 BP: BP Location: Patient Position: Pulse: Resp: Temp: TempSrc: SpO2: Weight: 58 kg (127 lb 14.4 oz) I/O last 2 completed shifts: In: 10 [IV Piggyback:10] Out: - Physical exam: General Appearance: Awake, alert, no acute distress Head: Normocephalic, atraumatic Eyes: Sclera anicteric, pupils equal Lungs: Decreased breath sounds on the right Cardiovascular: Regular rate and rhythm, S1 and S2 normal, no murmur, rub or gallop, no peripheraledema Abdomen: Soft, non-tender to palpation Extremities: Extremities normal, atraumatic Skin: Warm and dry without rashes. Indurated nodule on R thigh with overlying erythema Neurologic: Awake and alert, answering questions appropriately Psychosocial: Normal affect and mood Lab/Radiology/Diagnostic Review: Laboratory review: Lab results in the last 12 hours: Recent Results (from the past 12 hour(s)) CBC with auto differential Collection Time: 07/09/22 12:48 PM Result Value Ref Range WBC 14.1 (H) 3.8 - 9.9 K/cumm Hgb 11.2 (L) 13.0 - 17.5 g/dL Hct 31.9 (L) 38.9 - 50.3 % Plt 228 150 - 400 K/cumm MPV 12.8 (H) 9.1 - 12.3 fL RBC 3.24 (L) 4.30 - 5.80 M/cumm MCV 98.5 (H) 81.3 - 96.4 fL MCH 34.6 (H) 27.1 - 33.3 pg MCHC 35.1 32.3 - 35.7 g/dL RDW CV 16.8 (H) 11.1 - 14.9 % RDW SD 60.0 (H) 35.7 - 48.1 fL NRBC abs 0.00 0.00 - 0.01 K/cumm Comprehensive metabolic panel Collection Time: 07/09/22 12:48 PM Result Value Ref Range Sodium 139 135 - 145 mmol/L Potassium, pl See Comment 3.3 - 4.9 mmol/L Chloride 108 97 - 110 mmol/L CO2 24 22 - 32 mmol/L Anion gap 7 2 - 15 mmol/L BUN 11 8 - 25 mg/dL Creatinine 0.71 (L) 0.80 - 1.30 mg/dL Glucose 134 70 - 199 mg/dL Calcium 8.8 8.5 - 10.3 mg/dL Bilirubin, total 2.1 (H) 0.1 - 1.2 mg/dL Protein, pl 5.8 (L) 6.5 - 8.5 g/dL Albumin 3.4 (L) 3.5 - 5.0 g/dL Alk phos 278 (H) 40 - 130 Units/L ALT See Comment 7 - 55 Units/L AST See Comment 10 - 50 Units/L Magnesium Collection Time: 07/09/22 12:48 PM Result Value Ref Range Magnesium 1.5 1.4 - 2.5 mg/dL Phosphorus Collection Time: 07/09/22 12:48 PM Result Value Ref Range Phosphorus, pl 4.1 2.3 - 4.5 mg/dL Type and screen Collection Time: 07/09/22 12:48 PM Result Value Ref Range Carol, indirect Negative ABO Rh A Positive Urinalysis reflex to microscopic and culture Urine, clean voided Collection Time: 07/09/22 12:48 PM Specimen: Urine, clean voided Result Value Ref Range Color, ur Yellow Yellow Clarity, ur Clear Clear Specific gravity, ur 1.015 1.003 - 1.030 pH, urine 6.5 Protein, ur ql Negative Negative Glucose, ur ql Negative Negative Ketones, ur Negative Negative Bilirubin, ur Negative Negative Blood, ur Negative Negative Urobilinogen, ur >=8.0 (A) <2.0 mg/dL Nitrite, ur Negative Negative Leukocyte esterase, ur Negative Negative UA reflex comment Reflex conditions for microscopic UA and culture not met. Differential, auto Collection Time: 07/09/22 12:48 PM Result Value Ref Range Neutrophil abs 5.4 1.7 - 6.5 K/cumm Imm gran abs 0.0 0.0 - 0.1 K/cumm Lymphocyte abs 5.2 (H) 0.8 - 3.3 K/cumm Monocyte abs 2.0 (H) 0.2 - 0.8 K/cumm Eosinophil abs 1.4 (H) 0.0 - 0.5 K/cumm Basophil abs 0.1 0.0 - 0.1 K/cumm Neutrophil pct 38.2 % Imm gran pct 0.3 % Lymphocyte pct 36.8 % Monocyte pct 14.4 % Eosinophil pct 9.7 % Basophil pct 0.6 % eGFR Collection Time: 07/09/22 12:48 PM Result Value Ref Range eGFR >90 90 - 130 mL/min/1.73 m2 POC Blood Gas and Chemistries, Arterial - Collection Time: 07/09/22 1:11 PM Result Value Ref Range Lactate, POC 2.0 0.7 - 2.2 mmol/L Respiratory pathogen panel Nasopharyngeal Collection Time: 07/09/22 1:16 PM Specimen: Nasopharyngeal Result Value Ref Range Influenza A RNA Not Detected Not Detected Influenza B RNA Not Detected Not Detected RSV RNA Not Detected Not Detected COVID-19 RNA Not Detected Not Detected Coronavirus 229E RNA Not Detected Not Detected Coronavirus HKU1 RNA Not Detected Not Detected Coronavirus NL63 RNA Not Detected Not Detected Coronavirus OC43 RNA Not Detected Not Detected Adenovirus DNA Detected (A) Not Detected Metapneumovirus RNA Not Detected Not [...] M. pneumoniae DNA Not Detected Not Detected Hepatic function panel Collection Time: 07/09/22 2:59 PM Result Value Ref Range Bilirubin, total 2.4 (H) 0.1 - 1.2 mg/dL Bilirubin, direct 1.5 (H) 0.1 - 0.3 mg/dL Protein, pl 5.8 (L) 6.5 - 8.5 g/dL Albumin 3.4 (L) 3.5 - 5.0 g/dL Alk phos 312 (H) 40 - 130 Units/L ALT 84 (H) 7 - 55 Units/L AST 102 (H) 10 - 50 Units/L Imaging review: I have reviewed the result(s) CT chest CBC: Recent Labs Lab Units 07/09/22 1248 WBC K/cumm 14.1* HEMOGLOBIN g/dL 11.2* HEMATOCRIT % 31.9* MCV fL 98.5* MCH pg 34.6* MCHC g/dL 35.1 RDW CV % 16.8* RDWSD fL 60.0* MPV fL 12.8* NEUTROS ABS K/cumm 5.4 CMP: Recent Labs Lab Units 07/09/22 1459 07/09/22 1248 SODIUM mmol/L -- 139 POTASSIUM PLASMA mmol/L -- See Comment CO2 mmol/L -- 24 BUN SERUM mg/dL -- 11 GLUCOSE mg/dL -- 134 CREATININE mg/dL -- 0.71* CALCIUM mg/dL -- 8.8 CHLORIDE mmol/L -- 108 ALBUMIN g/dL 3.4* 3.4* AST Units/L 102* See Comment ALT Units/L 84* See Comment ALK PHOS Units/L 312* 278* BILIRUBIN TOTAL mg/dL 2.4* 2.1* TOTAL PROTEIN g/dL 5.8* 5.8* ANIONGAP mmol/L -- 7 LDH: Uric Acid: PT: PTT: Radiology: Assessment/Plan Community acquired pneumonia Adenovirus+, Rhinovirus/enterovirus +. Predominantly pharyngitis/upper respiratory symptoms, with chills, low grade fevers and night sweats at home ~1- [address] chest with evidence of RML consolidation, may represent concomitant bacterial pneumonia. - Supportive care for viral URI - Blood cultures pending, fungal serologies pending - Induced sputum - Cefepime, azithromycin for CAP coverage. Can de-escalate pending blood cultures Subcutaneous nodule of right lower extremity Indurated soft tissue nodule with overlying erythema, mildly tender. First noticed ~1 month ago. Denies any arthopod bites or known exposure or trauma. - Consider ultrasound to assess for drainable collection - Dermatology consult for potential biopsy, possible disseminated infection Elevated LFTs Recently w/ elevated LFTs, now appear down-trending. 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 Followed by Dr. Gresham. 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 S/p RCHOP x1 and DA-EPOCH-R x5 (completed 12/2017), IT-MTX C3 only d/t intracranial hypotension, w/ post-C2 WA, CR at end-of treatment. No e/o recurrence though course complicated by multiple episodes of progressive annika opathy w/ spontaneous resolution. -Followed by Dr. Gillespie, on observation - Med Onc consult inpatient 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HCC) CMV DNA positivity since at least April [...] fungal serologies and CMV DNA PCR pending Robel Tan MD documented in this encounter Plan of Treatment Scheduled Orders Name Type Priority Associated Diagnoses Orde r Schedule Urinalysis reflex to microscopic and culture Urine Microbiology STAT Lab orders - as needed, STAT collection for 1 Occurrences starting 07/09/2022 C. difficile testing Stool Microbiology STAT Lab orders - as needed, STAT collection for 1 Occurrences starting 07/09/2022 C. difficile testing Stool Microbiology STAT Lab orders - as needed, STAT collection for 1 Occurrences starting 07/09/2022 Scheduled Procedures Name Priority Associated Diagnoses Date/Ti me COLONOSCOPY Encounter for screening for colorectal cancer in high risk patient Family history of rectal cancer documented as of this encounter Procedures Procedure Name Priority Date/Time Associated Diagnosis Comments EGFR Routine 07/12/2022 12:33 AM CDT DIFFERENTIAL AUTO Routine 07/12/2022 12: 33 AM CDT CBC WITH AUTO DIFFERENTIAL Routine 07/12/2022 12:33 AM CDT PHOSPHORUS Routine 07/12/2022 12:33 AM CDT MAGNESIUM Routine 07/12/2022 12:33 AM CDT BASIC METABOLIC PANEL Routine 07/12/2022 12:33 AM CDT ADENOVIRUS PCR QUALITATIVE Routine 07/11/2022 9:37 AM CDT CYTOMEGALOVIRUS (CMV) DNA, QUANT GEN LAB Timed 07/11/2022 9:37 AM CDT IMMUNOGLOBULIN IGG SUBCLASSES Timed 07/11/2022 9:37 AM CDT CRITICAL RESULT CALLBACK CHEMISTRY Timed 07/11/2022 9:37 AM CDT EGFR Routine 07/11/2022 12:29 AM CDT DIFFERENTIAL AUTO Routine 07/11/2022 12: 29 AM CDT CBC WITH AUTO DIFFERENTIAL Routine 07/11/2022 12:29 AM CDT PHOSPHORUS Routine 07/11/2022 12:29 AM CDT MAGNESIUM Routine 07/11/2022 12:29 AM CDT BASIC METABOLIC PANEL Routine 07/11/2022 12:29 AM CDT SURGICAL PATHOLOGY Routine 07/10/2022 2: 18 PM CDT IMMUNOGLOBULIN PROFILE Timed 8:52 AM CDT AEROBIC CULTURE AND GRAM STAIN Routine 07/10/2022 6:57 AM CDT DIFFERENTIAL AUTO Routine 07/10/2022 2:3 0 AM CDT CBC WITH AUTO DIFFERENTIAL Routine 07/10/2022 2:30 AM CDT EGFR Routine 07/10/2022 12:47 AM CDT ASPERGILLUS GALACTOMANNAN ANTIGEN Routine 07/10/2022 12:47 AM CDT APTT Routine 07/10/2022 12:47 AM CDT PROTIME-INR Routine 07/10/2022 12:47 AM CDT HC BLD TYPING ABO Timed 07/10/2022 12: 47 AM CDT URIC ACID Routine 07/10/2022 12:47 AM CDT PHOSPHORUS Routine 07/10/2022 12:47 AM CDT MAGNESIUM Routine 07/10/2022 12:47 AM CDT LACTATE DEHYDROGENASE Routine 07/10/2022 12:47 AM CDT COMPREHENSIVE METABOLIC PANEL Routine 07/10/2022 12:47 AM CDT US LOWER EXTREMITY RIGHT LIMITED IP Routine 07/10/2022 12:26 AM CDT HEPATIC FUNCTION PANEL STAT 2:[address] SINUS WO CONTRAST ED Urgent/IP Urgent 07/09/2022 2:[address] CHEST W CONTRAST ED Urgent/IP Urgent 07/09/2022 2:43 PM CDT RESPIRATORY PATHOGEN PANEL Routine 07/09/2022 1:16 PM CDT POC BLOOD GAS AND CHEMISTRIES, ARTERIAL Routine 07/09/2022 1:11 PM CDT HISTOPLASMA ANTIGEN Routine 07/09/2022 1 2:48 PM CDT HISTOPLASMA ANTIBODY Routine 07/09/2022 12:48 PM CDT CYTOMEGALOVIRUS (CMV) DNA, QUANT GEN LAB Routine 07/09/2022 12:48 PM CDT EGFR STAT 07/09/2022 12:48 PM CDT DIFFERENTIAL AUTO STAT 07/09/2022 12: 48 PM CDT CRITICAL RESULT CALLBACK CHEMISTRY Routine 07/09/2022 12:48 PM CDT URINALYSIS AND REFLEX TO MICROSCOPIC AND CULTURE STAT 07/09/2022 12:48 PM CDT CBC WITH AUTO DIFFERENTIAL STAT 07/09/2022 12:48 PM CDT CRYPTOCOCCAL ANTIGEN, SERUM Routine 07/09/2022 12:48 PM CDT BLOOD CULTURE Routine 07/09/2022 12:48 PM CDT BLOOD CULTURE Routine 07/09/2022 12:48 PM CDT HC ANTIBODY SCREEN RBC STAT 12:48 PM CDT MOLD BLOOD CULTURE STAT 07/09/2022 12 :48 PM CDT PHOSPHORUS STAT 07/09/2022 12:48 PM CDT MAGNESIUM STAT 07/09/2022 12:48 PM CDT COMPREHENSIVE METABOLIC PANEL STAT 07/09/2022 12:48 PM CDT CMV MUTATION DETECTION Routine 12:37 PM CDT documented in this encounter Results * eGFR (07/12/2022 12:33 AM CDT) eGFR >90 90 - 130 [...] interpretive data was last reviewed 2021. Blood 07/12/2022 12:3 3 AM CDT 07/12/2022 1:03 AM CDT us Robel Tan MD LAB BLOOD ORDERABLES Final R esult [facility] [place] [address] * (ABNORMAL) Differential, auto (07/12/2022 12:33 AM CDT) Neutrophil abs 3.3 1.7 - 6.5 K/cumm [facility] Imm gran abs 0.0 0.0 - 0.1 K/cumm [facility] Lymphocyte abs 5.0(H) 0.8 - 3.3 K/cumm [facility] Monocyte abs 2.0(H) 0.2 - 0.8 K/cumm [facility] Eosinophil abs 1.4(H) 0.0 - 0.5 K/cumm [facility] Basophil abs 0.1 0.0 - 0.1 K/cumm [facility] Neutrophil pct 27.5 % [facility] Comment: Interpretive Data Percent cell count reference ranges are not reported, since discordance with absolute values may lead to misinterpretation of CBC data. Current Interpretive Data was last revised on 2018. Imm gran pct 0.3 % [facility] Comment: Interpretive Data Percent cell count reference ranges are not reported, since discordance with absolute values may lead to misinterpretation of CBC data. Current Interpretive Data was last revised on 2018. Lymphocyte pct 42.6 % [facility] Comment: Interpretive Data Percent cell count reference ranges are not reported, since discordance with absolute values may lead to misinterpretation of CBC data. Current Interpretive Data was last revised on 2018. Monocyte pct 16.9 % [facility] Comment: Interpretive Data Percent cell count reference ranges are not reported, since discordance with absolute values may lead to misinterpretation of CBC data. Current Interpretive Data was last revised on 2018. Eosinophil pct 12.0 % [facility] Comment: Interpretive Data Percent cell count reference ranges are not reported, since discordance with absolute values may lead to misinterpretation of CBC data. Current Interpretive Data was last revised on 2018. Basophil pct 0.7 % [facility] Comment: Interpretive Data Percent cell count reference ranges are not reported, since discordance with absolute values may lead to misinterpretation of CBC data. Current Interpretive Data was last revised on 2018. Blood 07/12/2022 12:3 3 AM CDT 07/12/2022 1:03 AM CDT Robel Tan MD LAB BLOOD ORDERABLES Final R esult [facility] [place] [address] * (ABNORMAL) Basic metabolic panel (07/12/2022 12:33 AM CDT) Sodium 141 135 - 145 mmol/L [facility] Potassium, pl 4.0 3.3 - 4.9 mmol/L [facility] Chloride 110 97 - 110 mmol/L [facility] CO2 24 22 - 32 mmol/L [facility] Anion gap 7 2 - 15 mmol/L [facility] BUN 9 8 - 25 mg/dL [facility] Creatinine 0.69(L) 0.80 - 1.30 mg/dL [facility] Glucose 88 70 - 199 mg/dL [facility] Comment: Interpretive Data Fasting glucose [...] classification and Diagnosis of Diabetes Diabetes Care 2017;40 (Suppl. 1):S11. Current interpretive data was last revised 2017. Calcium 7.9(L) 8.5 - 10.3 mg/dL [facility] Blood 07/12/2022 12:3 3 AM CDT 07/12/2022 1:03 AM CDT Narrative [facility] - 07/12/2022 1:33 AM CDT Daily except Wednesday and . Morning draw. us Robel Tan MD LAB BLOOD ORDERABLES Final R esult Performing Organization Address [facility] Co de Phone Number [facility] Department [place] [address] * Phosphorus (07/12/2022 12:33 AM CDT) Phosphorus, pl 3.6 2.3 - 4.5 mg/dL [facility] Blood 07/12/2022 12:3 3 AM CDT 07/12/2022 1:03 AM CDT us Robel Tan MD LAB BLOOD ORDERABLES Final R esult Performing Organization Address [facility] Co de Phone Number [facility] [place] [place] [address] * Magnesium (07/12/2022 12:33 AM CDT) Magnesium 1.4 1.4 - 2.5 mg/dL [facility] Blood 07/12/2022 12:3 3 AM CDT 07/12/2022 1:03 AM CDT us Robel Tan MD LAB BLOOD ORDERABLES Final R esult [facility] [place] [address] * (ABNORMAL) CBC with auto differential (07/12/2022 12:33 AM CDT) WBC 11.8(H) 3.8 - 9.9 K/cumm [facility] Hgb 11.1(L) 13.0 - 17.5 g/dL [facility] Hct 30.7(L) 38.9 - 50.3 % [facility] Plt 151 150 - 400 K/cumm [facility] MPV 11.8 9.1 - 12.3 fL [facility] RBC 3.11(L) 4.30 - 5.80 M/cumm [facility] MCV 98.7(H) 81.3 - 96.4 fL [facility] MCH 35.7(H) 27.1 - 33.3 pg [facility] MCHC 36.2(H) 32.3 - 35.7 g/dL [facility] RDW CV 16.9(H) 11.1 - 14.9 % [facility] RDW SD 60.4(H) 35.7 - 48.1 fL [facility] NRBC abs 0.00 0.00 - 0.01 K/cumm [facility] Blood 07/12/2022 12:3 3 AM CDT 07/12/2022 1:03 AM CDT Robel Tan MD LAB BLOOD ORDERABLES Final R esult [facility] [place] [address] * Critical Result Callback Chemistry (07/11/2022 9:37 AM CDT) Date Notified [id number] [facility] Time Notified 404 [facility] TestName See Comment [facility] Comment:CMV DNA Called/Read Back Mary Arevalo [facility] Credentials RN [facility] Called By kim [facility] Blood 07/11/2022 9:37 AM CDT 07/11/2022 9:46 AM CDT Tony Baca MD LAB BLOOD ORDERABLES Final Re sult Performing Organization Address [facility] [place] [address] * Adenovirus PCR qualitative Blood (07/11/2022 9:37 AM CDT) [facility] Adenovirus DNA Not Detected Not Detected [facility] Comment: Interpretive Data: This assay tests for the presence of Adenovirus. ??This test is laboratory developed and its performance characteristics were determined by the performing laboratory in a manner consistent with CLIA requirements. This test has not been cleared or approved by the U.S. Food and Drug Administration. Current Interpretive Data was last revised on 2020. Blood 07/11/2022 9:37 AM CDT 07/11/2022 9:46 AM CDT Tony Baca MD LAB MICROBIOLOGY - GENERAL OR DERABLES Final Result Performing Organization Address [facility] Co de Phone Number [facility] [place] [address] * (ABNORMAL) Cytomegalovirus (CMV) DNA PCR, quantitative Blood (07/11/2022 9:37 AM CDT) [facility] CMV DNA Detected( A) [facility] Comment: Interpretive Data: The quantifiable range of this assay is 34 IUnits/mL to 10,000,000 IUnits/mL (1.53 log IUnits/mL to 7.0 log IUnits/mL). Testing was performed by the NIA 6800 CMV Test ([employer] Testing performed at [facility]. Current interpretive data was last revised on 2021. CMV DNA IU/mL 17,400(C) IUnits/mL [facility] CMV DNA log IU/mL 4.24 log IUnits/mL [facility] Blood 07/11/2022 9:37 AM CDT 07/11/2022 9:46 AM CDT Result [facility] Tony Baca MD LAB MICROBIOLOGY - GENERAL OR DERABLES Final Result Performing Organization Address [facility] Co de Phone Number [facility] [place] [address] * Immunoglobulin IgG subclasses (07/11/2022 9:37 AM CDT) [facility] IgG 835 767 - 1590 mg/dL [facility] IgG, fraction 1 403 341 - 894 mg/dL [facility] IgG, fraction 2 305 171 - 632 mg/dL [facility] IgG, fraction 3 22.3 18.4 - 106.0 mg/dL [facility] IgG, fraction 4 15.9 2.4 - 121.0 mg/dL [facility] Comment: Test Performed by: [facility] [address] [place] [address] Sandwich Artist: Jason Sandy M.D. Ph.D.; IA# [id number] Blood 07/11/2022 9:37 AM CDT 07/11/2022 9:51 AM CDT Result [facility] Tony Baca MD LAB BLOOD ORDERABLES Final Re sult Performing Organization Address [facility] Co de Phone Number [facility] [place] [address] * eGFR (07/11/2022 12:29 AM CDT) [facility] eGFR >90 90 - 130 mL/min/1. 73 m2 [facility] Comment: Interpretive Data Reference Interval [...] interpretive data was last reviewed 2021. Blood 07/11/2022 12:2 9 AM CDT 07/11/2022 1:01 AM CDT Robel Tan MD LAB BLOOD ORDERABLES Final R esult [facility] [place] [address] * (ABNORMAL) Differential, auto (07/11/2022 12:29 AM CDT) Neutrophil abs 4.6 1.7 - 6.5 K/cumm [facility] Imm gran abs 0.1 0.0 - 0.1 K/cumm [facility] Lymphocyte abs 5.3(H) 0.8 - 3.3 K/cumm [facility] Monocyte abs 2.3(H) 0.2 - 0.8 K/cumm [facility] Eosinophil abs 1.6(H) 0.0 - 0.5 K/cumm [facility] Basophil abs 0.1 0.0 - 0.1 K/cumm [facility] Neutrophil pct 32.7 % [facility] Comment: Consistent with previous result Consistent with previous result Interpretive Data Percent cell count reference ranges are not reported, since discordance with absolute values may lead to misinterpretation of CBC data. Current Interpretive Data was last revised on 2018. Imm gran pct 0.4 % [facility] Comment: Interpretive Data Percent cell count reference ranges are not reported, since discordance with absolute values may lead to misinterpretation of CBC data. Current Interpretive Data was last revised on 2018. Lymphocyte pct 38.4 % [facility] Comment: Interpretive Data Percent cell count reference ranges are not reported, since discordance with absolute values may lead to misinterpretation of CBC data. Current Interpretive Data was last revised on 2018. Monocyte pct 16.2 % [facility] Comment: Interpretive Data Percent cell count reference ranges are not reported, since discordance with absolute values may lead to misinterpretation of CBC data. Current Interpretive Data was last revised on 2018. Eosinophil pct 11.7 % [facility] Comment: Interpretive Data Percent cell count reference ranges are not reported, since discordance with absolute values may lead to misinterpretation of CBC data. Current Interpretive Data was last revised on 2018. Basophil pct 0.6 % [facility] Comment: Interpretive Data Percent cell count reference ranges are not reported, since discordance with absolute values may lead to misinterpretation of CBC data. Current Interpretive Data was last revised on 2018. Blood 07/11/2022 12:2 9 AM CDT 07/11/2022 1:00 AM CDT us Robel Tan MD LAB BLOOD ORDERABLES Final R esult [facility] [place] [address] * (ABNORMAL) Basic metabolic panel (07/11/2022 12:29 AM CDT) Sodium 142 135 - 145 mmol/L [facility] Potassium, pl 4.2 3.3 - 4.9 mmol/L [facility] Chloride 110 97 - 110 mmol/L [facility] CO2 26 22 - 32 mmol/L [facility] Anion gap 6 2 - 15 mmol/L [facility] BUN 12 8 - 25 mg/dL [facility] Creatinine 0.75(L) 0.80 - 1.30 mg/dL [facility] Glucose 94 70 - 199 mg/dL [facility] Comment: Interpretive Data Fasting glucose [...] classification and Diagnosis of Diabetes Diabetes Care 2017;40 (Suppl. 1):S11. Current interpretive data was last revised 2017. Calcium 8.1(L) 8.5 - 10.3 mg/dL [facility] Blood 07/11/2022 12:2 9 AM CDT 07/11/2022 1:01 AM CDT Narrative [facility] - 07/11/2022 1:28 AM CDT Daily except Wednesday and . Morning draw. Robel Tan MD LAB BLOOD ORDERABLES Final R esult Performing Organization Address City/[facility]/ZIP Co de Phone Number [facility] [place] [address] * Phosphorus (07/11/2022 12:29 AM CDT) Phosphorus, pl 3.9 2.3 - 4.5 mg/dL [facility] Blood 07/11/2022 12:2 9 AM CDT 07/11/2022 1:01 AM CDT Robel Tan MD LAB BLOOD ORDERABLES Final R esult [facility] [place] [address] * Magnesium (07/11/2022 12:29 AM CDT) Pathologist [facility] Magnesium 1.9 1.4 - 2.5 mg/dL [facility] Blood 07/11/2022 12:2 9 AM CDT 07/11/2022 1:01 AM CDT Robel Tan MD LAB BLOOD ORDERABLES Final R esult [facility] [place] [address] * (ABNORMAL) CBC with auto differential (07/11/2022 12:29 AM CDT) [facility] WBC 13.9(H) 3.8 - 9.9 K/cumm [facility] Hgb 11.4(L) 13.0 - 17.5 g/dL [facility] Hct 31.9(L) 38.9 - 50.3 % [facility] Plt 160 150 - 400 K/cumm [facility] MPV 11.9 9.1 - 12.3 fL [facility] RBC 3.20(L) 4.30 - 5.80 M/cumm [facility] MCV 99.7(H) 81.3 - 96.4 fL [facility] MCH 35.6(H) 27.1 - 33.3 pg [facility] MCHC 35.7 32.3 - 35.7 g/dL [facility] RDW CV 16.5(H) 11.1 - 14.9 % [facility] RDW SD 60.4(H) 35.7 - 48.1 fL [facility] NRBC abs 0.00 0.00 - 0.01 K/cumm [facility] Blood 07/11/2022 12:2 9 AM CDT 07/11/2022 1:00 AM CDT Robel Tan MD LAB BLOOD ORDERABLES Final R esult [facility] [place] [address] * Surgical pathology (07/10/2022 2:18 PM CDT) Tissue (Skin, biopsy) 07/10/2022 2:18 PM CDT 07/10/2022 4:45 PM CDT Narrative PATHOLOGY [facility] - 07/17/2022 2:31 PM CDT EPIC results best viewed via link to PDF [facility] Yulisa Garcia [facility] [place] [address] Note to Patients: This report may contain [...] explain the details. SURGICAL PATHOLOGY REPORT FINAL WITH ADDENDUM Patient Name: ?? BEKA NICHOLS Gender: ??M : ??1995 (Age: 27) Address: ??[address] [place] [address] ??[id number] Hospital #: ??[id number] Taken:07/10/2022 Received:07/10/2022 Reported: 07/17/2022 Patient Type: [facility] Inpatient ?? Service: Oncology Location: [facility] ??[address] Physician(s): ??Leeanna Dewitt M.D. Alexandra Silva MD, PhD Anita Gillespie M.D. Guero Colunga D.O. Diagnosis: Skin, right thigh, punch biopsy: ? 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 Note: The findings are difficult to precisely classify. There is a superficial and deep perivascular and periadnexal infiltrate of lymphocytes and histiocytes above a zone of marked deep dermal and subuctaneous tissue necrosis. ??While I favor the infiltrate to be a reactive, granulomatous process it is difficult to entirely exclude a neoplastic process such as a histiocytosis and the etiology of the tissue necrosis is uncertain. ??The infiltrate is negative for EBV by JAKOB, to suggest this is not a post-transplant lymphoproliferative disorder. Stains for microorgansisms (gram, GMS, AFB and Cyril) are negative. A few additional histiocytic markers have been ordered and will be reported in an addendum. ??This patient should be followed for evidence of persistence at this site or the evolution of similar lesions elsewhere. ? kl/07/13/2022 10:59 By this signature, I attest that the above diagnosis is based upon my personal examination of the slides(and/or other material indicated in the diagnosis). Mayra Mast M.D. Report Electronically Reviewed and Signed Out By ??Mayra Mast M.D. 07/17/2022 14:30:59 Microscopic Description and Comment: Within the superficial and deep dermis there is an infiltrate of lymphocytes and histiocytes around vessels and eccrine unites. CD3 and CD8 highlights small lymphocytes. ??CD4 highlights small lymphocytes and a portion of the histiocytoid cells. CD68 and CD163 highlight numerous histiocytes. Dacoma-5 and CD20 highlight rare B cells. In situ hybridization for EBV (JAKOB) is negative. ?? Microscopic slide review and interpretation for this case was performed at the [facility], ??Department of Pathology ??and Immunology, [facility], [address] [place] [address], [address], [place], [place] ??[address] ?? CLIA # [id number] Margaret Ashley M.D., Ph.D. History: Patient is a 27-year-old male presenting with history of ITP, autoimmune hepatitis c/b PTLD with subcutaneous nodule on right thigh. ??Differential diagnosis cyst but rule out other neoplasm. ??Operative procedure: Skin punch biopsy. Specimen(s) Received: A: Skin, right thigh, punch biopsy Gross Description: Received in formalin labeled with the patient's name and date of is a 0.4 x 0.4 skin punch excised to a depth of 0.6 cm. ??The skin surface is unremarkable. ??The margin is inked blue. ??The specimen is bisected. ??Labeled A1. ??Jar 0. ?? elsw/07/10/2022 17:25 PA(s): Kristine Ley By this signature, I attest that the above diagnosis is based upon my personal examination of the slides(and/or other material). Addenda/Procedures Addendum Ordered:08/06/2022tatus:Signed OutAddendum Complete:08/06/2022y:Mayra Mast M.D.Addendum Signed Out:08/06/2022 Addendum Comment This addendum reports the results of additional immunohistochemical stains performed subsequent to the original pathology report. The infiltrate in question stains negative for CD123, CD1a and S-100. The diagnosis is unchanged. ?? By this signature, I attest that the above diagnosis is based upon my personal examination of the slides(and/or other material indicated in the diagnosis). Mayra Mast M.D.Report Electronically Reviewed and Signed Out By ??Mayra Mast M.D. ??08/06/2022 13:16:45 ?? The performance characteristics of some immunohistochemical stains, fluorescence in-situ hybridization tests and immunophenotyping by flow cytometry cited in this report (if any) were determined by the Surgical Pathology and Flow Cytometry Departments at [facility] as part of an ongoing quality assurance practice manager program and in compliance with federally [...] Surgical Pathology and Flow Cytometry Departments of [facility]. ??It has not been cleared or approved by the U. S. Food and Drug Administration. IMAGES AND SCANNED DOCUMENTS, IF INCLUDED, ONLY VIEWABLE IN PDF VERSION OF REPORT Anita Gillespie MD LAB PATHOLOGY ORDERABLES F inal Result Performing Organization Address [facility]/ZIP Co de Phone Number PATHOLOGY [facility] [address] Floor [place], [place] [phone] * (ABNORMAL) Immunoglobulin profile (07/10/2022 8:52 AM CDT) Pathologist [facility] Immunoglobulin G 805.0 700.0 - 1,600.0 mg/dL [facility] Immunoglobulin A <50.0(L) 70.0 - 400.0 mg/dL [facility] Immunoglobulin M <25.0(L) 40.0 - 230.0 mg/dL [facility] Blood 07/10/2022 8:52 AM CDT 07/10/2022 9:02 AM CDT us Tony Baca MD LAB BLOOD ORDERABLES Final Re sult Performing Organization Address [facility] Co de Phone Number [facility] [place] [address] * Aerobic culture and gram stain Sputum, induced Sputum (Cytology) (07/10/2022 6:57 AM CDT) [facility] Direct Specimen Exam Stain: Abundant squamous epithelial cells seen indicating excessive oropharyngeal contamination. ??Culture will not be processed further. ??Please submit another specimen. Smear results called to and read back by: Lisandra Sinha RN [phone] ??on 07/10/2022 08:51:28 by: Robel Del Angel MT [facility] Report Final Report: This is the final report. [facility] Sputum, induced (Sputum) 07/10/2022 6:57 AM CDT 07/10/2022 7:10 AM CDT Narrative [facility] - 07/11/2022 8:20 AM CDT Testing performed by [facility] ([phone]) Specimens submitted from normally sterile body sites will have all bacterial morphotypes identified. ??Specimens that contain grossly mixed ellie and/or are from body sites that are not normally sterile will be examined for Staphylococcus aureus, Pseudomonas aeruginosa, beta-hemolytic strep, vancomycin-resistant Enterococcus and fungus. ??If any of these are isolated, the organism will be reported. Current interpretive data was last revised on 2017. Robel Tan MD LAB MICROBIOLOGY - GENERAL O RDERABLES Final Result [facility] [place] [address] * (ABNORMAL) Differential, auto (07/10/2022 2:30 AM CDT) Neutrophil abs 5.0 1.7 - 6.5 K/cumm [facility] Imm gran abs 0.1 0.0 - 0.1 K/cumm [facility] Lymphocyte abs 5.7(H) 0.8 - 3.3 K/cumm [facility] Monocyte abs 2.2(H) 0.2 - 0.8 K/cumm [facility] Eosinophil abs 1.8(H) 0.0 - 0.5 K/cumm [facility] Basophil abs 0.1 0.0 - 0.1 K/cumm [facility] Neutrophil pct 33.8 % [facility] Comment: Consistent with previous result Consistent with previous result Interpretive Data Percent cell count reference ranges are not reported, since discordance with absolute values may lead to misinterpretation of CBC data. Current Interpretive Data was last revised on 2018. Imm gran pct 0.3 % [facility] Comment: Interpretive Data Percent cell count reference ranges are not reported, since discordance with absolute values may lead to misinterpretation of CBC data. Current Interpretive Data was last revised on 2018. Lymphocyte pct 38.2 % [facility] Comment: Interpretive Data Percent cell count reference ranges are not reported, since discordance with absolute values may lead to misinterpretation of CBC data. Current Interpretive Data was last revised on 2018. Monocyte pct 15.0 % [facility] Comment: Interpretive Data Percent cell count reference ranges are not reported, since discordance with absolute values may lead to misinterpretation of CBC data. Current Interpretive Data was last revised on 2018. Eosinophil pct 12.2 % [facility] Comment: Interpretive Data Percent cell count reference ranges are not reported, since discordance with absolute values may lead to misinterpretation of CBC data. Current Interpretive Data was last revised on 2018. Basophil pct 0.5 % [facility] Comment: Interpretive Data Percent cell count reference ranges are not reported, since discordance with absolute values may lead to misinterpretation of CBC data. Current Interpretive Data was last revised on 2018. Blood 07/10/2022 2:30 AM CDT 07/10/2022 1:13 AM CDT Robel Tan MD LAB BLOOD ORDERABLES Final R esult [facility] [place] [address] * (ABNORMAL) CBC with auto differential (07/10/2022 2:30 AM CDT) WBC 14.8(H) 3.8 - 9.9 K/cumm [facility] Hgb 12.0(L) 13.0 - 17.5 g/dL [facility] Hct 33.4(L) 38.9 - 50.3 % [facility] Plt 184 150 - 400 K/cumm [facility] MPV 11.8 9.1 - 12.3 fL [facility] RBC 3.38(L) 4.30 - 5.80 M/cumm [facility] MCV 98.8(H) 81.3 - 96.4 fL [facility] MCH 35.5(H) 27.1 - 33.3 pg [facility] MCHC 35.9(H) 32.3 - 35.7 g/dL [facility] RDW CV 16.7(H) 11.1 - 14.9 % [facility] RDW SD 60.2(H) 35.7 - 48.1 fL [facility] NRBC abs 0.00 0.00 - 0.01 K/cumm [facility] Blood 07/10/2022 2:30 AM CDT 07/10/2022 1:13 AM CDT us Robel Tan MD LAB BLOOD ORDERABLES Final R esult [facility] [place] [address] * eGFR (07/10/2022 12:47 AM CDT) eGFR >90 90 - 130 mL/min/1. 73 m2 [facility] Comment: Interpretive Data Reference Interval [...] interpretive data was last reviewed 2021. Blood 07/10/2022 12:4 7 AM CDT 07/10/2022 1:13 AM CDT Robel Tan MD LAB BLOOD ORDERABLES Final R esult Performing Organization Address [facility] Co de Phone Number [facility] [place] [address] * Protime-INR (07/10/2022 12:47 AM CDT) PT 12.4 9.2 - 13.5 sec [facility] INR 1.1 0.9 - 1.2 [facility] Comment: Interpretive data Oral anticoagulant therapeutic ranges: Venous thromboembolism prophylaxis or treatment: 2.0-3.0 CARDIOLOGY Standard range: 2.0-3.0 High-intensity range: 2.5-3.5 Refer to indication-specific guidelines for appropriate target ranges for prosthetic heart valve replacement. Current interpretive data was last revised on 2019. Blood 07/10/2022 12:4 7 AM CDT 07/10/2022 1:13 AM CDT Robel Tan MD LAB BLOOD ORDERABLES Final R ult Performing Organization Address [facility] de Phone Number [facility] [place] [address] * (ABNORMAL) aPTT (07/10/2022 12:47 AM CDT) aPTT 38(H) 27 - 37 sec [facility] Comment: Interpretive Data Therapeutic heparin range: 60.0 - 94.0 seconds. Based on correlation with therapeutic heparin activity range of 0.3-0.7 Units/mL. Current interpretive data was last revised on 2020. Blood 07/10/2022 12:4 7 AM CDT 07/10/2022 1:13 AM CDT Robel Tan MD LAB BLOOD ORDERABLES Final R esult Performing Organization Address [facility] Co de Phone Number [facility] [place] [address] * (ABNORMAL) Lactate dehydrogenase (LD) (07/10/2022 12:47 AM CDT) [facility] Lactate dehydrogenase (LDH) 403(H) 100 - 250 Units/L [facility] Blood 07/10/2022 12:4 7 AM CDT 07/10/2022 1:13 AM CDT Narrative [facility] - 07/10/2022 1:44 AM CDT Wednesday and only. Morning draw. Robel Tan MD LAB BLOOD ORDERABLES Final R esult Performing Organization Address [facility] Co de Phone Number [facility] [place] [address] * Uric acid (07/10/2022 12:47 AM CDT) [facility] Uric acid 4.1 3.0 - 8.0 mg/dL [facility] Blood 07/10/2022 12:4 7 AM CDT 07/10/2022 1:13 AM CDT Narrative [facility] - 07/10/2022 1:44 AM CDT Wednesday and only. Morning draw. . Robel Tan MD LAB BLOOD ORDERABLES Final R esult [facility] [place] [address] * (ABNORMAL) Comprehensive metabolic panel (07/10/2022 12:47 AM CDT) [facility] Sodium 138 135 - 145 mmol/L [facility] Potassium, pl 4.5 3.3 - 4.9 mmol/L [facility] Chloride 108 97 - 110 mmol/L [facility] CO2 25 22 - 32 mmol/L [facility] Anion gap 5 2 - 15 mmol/L [facility] BUN 10 8 - 25 mg/dL [facility] Creatinine 0.77(L) 0.80 - 1.30 mg/dL [facility] Glucose 81 70 - 199 mg/dL [facility] Comment: Interpretive Data Fasting glucose [...] classification and Diagnosis of Diabetes Diabetes Care 2017;40 (Suppl. 1):S11. Current interpretive data was last revised 2017. Calcium 9.0 8.5 - 10.3 mg/dL [facility] Bilirubin, total 2.0(H) 0.1 - 1.2 mg/dL [facility] Protein, pl 5.4(L) 6.5 - 8.5 g/dL [facility] Albumin 3.0(L) 3.5 - 5.0 g/dL [facility] Alk phos 285(H) 40 - 130 Units/L [facility] ALT 76(H) 7 - 55 Units/L [facility] AST 99(H) 10 - 50 Units/L [facility] Blood 07/10/2022 12:4 7 AM CDT 07/10/2022 1:13 AM CDT Narrative [facility] - 07/10/2022 1:44 AM CDT Wednesday and only. Morning draw. us Robel Tan MD LAB BLOOD ORDERABLES Final R esult [facility] Department [place] [address] * Type and screen (07/10/2022 12:47 AM CDT) Carol, indirect Negative [facility] A Positive [facility] Blood 07/10/2022 12:4 7 AM CDT 07/10/2022 1:32 AM CDT Narrative [facility] - 07/10/2022 3:43 AM CDT Has the patient had Daratumumab or Isatuximab in the past 6 months?->Unknown Robel Tan MD LAB BLOOD BANK TEST ORDERABL ES Final Result Performing Organization Address [facility] Co de Phone Number [facility] [place] [address] * Phosphorus (07/10/2022 12:47 AM CDT) Phosphorus, pl 4.2 2.3 - 4.5 mg/dL [facility] Blood 07/10/2022 12:4 7 AM CDT 07/10/2022 1:13 AM CDT Robel Tan MD LAB BLOOD ORDERABLES Final R esult Performing Organization Address [facility] Co de Phone Number [place] [address] * Magnesium (07/10/2022 12:47 AM CDT) Magnesium 1.5 1.4 - 2.5 mg/dL [facility] Blood 07/10/2022 12:4 7 AM CDT 07/10/2022 1:13 AM CDT Robel Tan MD LAB BLOOD ORDERABLES Final R esult Performing Organization Address [facility] Co de Phone Number [place] [address] * Aspergillus galactomannan antigen Blood (07/10/2022 12:47 AM CDT) Aspergillus galactomannan Ag <0.500 <0.5 Index [facility] Comment: Icteric ADDITIONAL INFORMATION This is a qualitative test and the resulted index value is not indicative of disease severity. ??Serial testing is recommended for patients at high risk for invasive aspergillosis. This assay was performed using the FDA-cleared [employer] Aspergillus Galactomannan EIA. Test Performed by: [facility] [address] [place] [address] Sandwich Artist: Jason Sandy M.D. Ph.D.; CLIA# [id number] Blood 07/10/2022 12:4 7 AM CDT 07/10/2022 1:35 AM CDT Robel Tan MD LAB MICROBIOLOGY - GENERAL O RDERABLES Final Result [facility] [place] [address] * US Lower Extremity Right Limited (07/10/2022 12:26 AM CDT) Anatomical Region Laterality Modality Lower Extremities Right Ultrasound 07/10/2022 7:45 AM CDT Impressions 07/10/2022 7:45 AM CDT IMPRESSION: 1. ??Findings consistent with cellulitis at the lump at the anterior right thigh. 2. ??No drainable fluid collection. 3. ??No sonographically evident retained foreign body. Electronically signed by: Tess Crouch MD Narrative 07/10/2022 7:45 AM CDT EXAMINATION: US LOWER EXTREMITY RIGHT LIMITED HISTORY: 27-year-old male with approximately 1 month of palpable painful right thigh lump , assess for abscess COMPARISON: None available FINDINGS: ??Targeted sonographic evaluation of the palpable area of pain, at the right mid anterior thigh, demonstrated focal focal superficial soft tissue edema with mild associated hyperemia, without drainable fluid collection. ??No sonographically evident retained foreign body. Procedure Note Tess Crouch MD - 07/10/2022 EXAMINATION: US LOWER EXTREMITY RIGHT LIMITED HISTORY: 27-year-old male with approximately 1 month of palpable painful right thigh lump , assess for abscess COMPARISON: None available FINDINGS: Targeted sonographic evaluation of the palpable area of pain, at the right mid anterior thigh, demonstrated focal focal superficial soft tissue edema with mild associated hyperemia, without drainable fluid collection. No sonographically evident retained foreign body. IMPRESSION: IMPRESSION: 1. Findings consistent with cellulitis at the lump at the anterior right thigh. 2. No drainable fluid collection. 3. No sonographically evident retained foreign body. Electronically signed by: Tess Crouch MD Robel Tan MD IMG US PROCEDURES Final Resu lt * (ABNORMAL) Hepatic function panel (07/09/2022 2:59 PM CDT) Bilirubin, total 2.4(H) 0.1 - 1.2 mg/dL [facility] Bilirubin, direct 1.5(H) 0.1 - 0.3 mg/dL [facility] Protein, pl 5.8(L) 6.5 - 8.5 g/dL [facility] Albumin 3.4(L) 3.5 - 5.0 g/dL [facility] Alk phos 312(H) 40 - 130 Units/L [facility] ALT 84(H) 7 - 55 Units/L [facility] AST 102(H) 10 - 50 Units/L [facility] Blood 07/09/2022 2:59 PM CDT 07/09/2022 3:16 PM CDT Khushi Cosme NP LAB BLOOD ORDERABLES Final R esult [facility] Department [place] [address] * CT Chest W Contrast (07/09/2022 2:43 PM CDT) Anatomical Region Laterality Modality Body N/A Computed Tomogra phy 07/09/2022 3:00 PM CDT Impressions 07/09/2022 3:00 PM CDT 1. Consolidation and adjacent subcentimeter nodules in the right middle lobe, partially imaged on CT dated 07/05/2022 and likely representing pneumonia. Follow-up to resolution is recommended. 2. No significant interval change in extensive thoracic lymphadenopathy as described compared to CT dated 10/01/2021. Electronically signed by: Stephon Blevins 07/09/2022 3:00 PM CDT EXAMINATION: ??Computed tomography of the chest with intravenous contrast HISTORY: Lymphoma, history of liver transplant in 1998 TECHNIQUE: ??Transaxial computed tomographic images of the chest were obtained with intravenous contrast according to standard protocol after the uneventful administration of 75 mL Opti-Ray 350 intravenous contrast. COMPARISON: CT chest dated 10/01/2021 and lung base images from CT abdomen and pelvis dated 07/05/2022; older prior studies were also reviewed FINDINGS: ?? Patent central airways. Consolidation and multiple adjacent subcentimeter nodules in the inferior right middle lobe, which was partially imaged on CT dated 07/05/2022 and is new compared to CT of 10/01/2021. Scattered less than 6 mm nodules in the right lung, such as a 3 mm nodule in the right upper lobe (-183.0) are similar to CT dated 10/01/2021. No pleural effusion or pneumothorax. Partially imaged bilateral supraclavicular lymphadenopathy, such as a 1.1 cm left supraclavicular lymph node (-97.0), similar to CT dated 10/01/2021 accounting for the absence of intravenous contrast on the prior study. Bilateral axillary lymphadenopathy, such as a 1.8 cm right axillary lymph node (-133.0) and a 2.6 cm left axillary lymph node, is similar to the prior study accounting for differences in patient arm positioning. Mediastinal lymphadenopathy, such as subcarinal lymphadenopathy measuring 2.8 cm, and bilateral hilar lymphadenopathy are also similar to prior study. Nondistended esophagus. Normal caliber thoracic aorta and main pulmonary artery. Normal heart size. No pericardial effusion. The imaged thyroid appears normal. Images of the upper abdomen demonstrate postoperative changes of liver transplantation. The spleen is absent. Extensive mesenteric and retroperitoneal lymphadenopathy in the imaged upper abdomen is similar to prior CT dated 07/05/2022. No suspicious osseous lesions. Procedure Note Cathleen Flanagan MD - 07/09/2022 EXAMINATION: Computed tomography of the chest with intravenous contrast HISTORY: Lymphoma, history of liver transplant in 1998 TECHNIQUE: Transaxial computed tomographic images of the chest were obtained with intravenous contrast according to standard protocol after the uneventful administration of 75 mL Opti-Ray 350 intravenous contrast. COMPARISON: CT chest dated 10/01/2021 and lung base images from CT abdomen and pelvis dated 07/05/2022; older prior studies were also reviewed FINDINGS: Patent central airways. Consolidation and multiple adjacent subcentimeter nodules in the inferior right middle lobe, which was partially imaged on CT dated 07/05/2022 and is new compared to CT of 10/01/2021. Scattered less than 6 mm nodules in the right lung, such as a 3 mm nodule in the right upper lobe (-183.0) are similar to CT dated 10/01/2021. No pleural effusion or pneumothorax. Partially imaged bilateral supraclavicular lymphadenopathy, such as a 1.1 cm left supraclavicular lymph node (-97.0), similar to CT dated 10/01/2021 accounting for the absence of intravenous contrast on the prior study. Bilateral axillary lymphadenopathy, such as a 1.8 cm right axillary lymph node (-133.0) and a 2.6 cm left axillary lymph node, is similar to the prior study accounting for differences in patient arm positioning. Mediastinal lymphadenopathy, such as subcarinal lymphadenopathy measuring 2.8 cm, and bilateral hilar lymphadenopathy are also similar to prior study. Nondistended esophagus. Normal caliber thoracic aorta and main pulmonary artery. Normal heart size. No pericardial effusion. The imaged thyroid appears normal. Images of the upper abdomen demonstrate postoperative changes of liver transplantation. The spleen is absent. Extensive mesenteric and retroperitoneal lymphadenopathy in the imaged upper abdomen is similar to prior CT dated 07/05/2022. No suspicious osseous lesions. IMPRESSION: 1. Consolidation and adjacent subcentimeter nodules in the right middle lobe, partially imaged on CT dated 07/05/2022 and likely representing pneumonia. Follow-up to resolution is recommended. 2. No significant interval change in extensive thoracic lymphadenopathy as described compared to CT dated 10/01/2021. Electronically signed by: Cathleen Flanagan M.D. us Khushi Cosme NP IMG CT PROCEDURES Final Resu lt * CT Sinus WO Contrast (07/09/2022 2:43 PM CDT) Anatomical Region Laterality Modality Head and Neck N/A Computed Tomogra phy 07/09/2022 3:19 PM CDT Impressions 07/09/2022 4:45 PM CDT 1. Mucosal thickening has progressed within the sphenoid sinuses and right maxillary sinus and improved within the frontal sinuses and ethmoid air cells. No noncontrast CT evidence of complication. Dictated by: Feliciano Ahn M.D. The radiology attending physician has personally reviewed this study, and had reviewed and/or edited this written report and agrees with it. Electronically signed by: Joaquin Adams M.D. Narrative 07/09/2022 4:45 PM CDT EXAMINATION: CT of the paranasal sinuses without contrast HISTORY: Sinus fullness and drainage. History of lymphoma. TECHNIQUE: CT of the paranasal sinuses was performed using sinus protocol without contrast. Contrast Information: 0 mL Optiray-350 COMPARISON: Sinus CT 02/11/2022. FINDINGS: Surgical clips are again seen in the right neck soft tissues. When compared to the prior examination, there is slight interval progression of mucosal thickening in the right maxillary sinus. Near complete opacification of the left maxillary sinus appears unchanged. There is improved mucosal thickening within the frontal sinuses. Mucosal thickening within the ethmoid air cells appears unchanged. Mucosal thickening in the sphenoid sinuses has progressed. The ostiomeatal units are obstructed bilaterally. Review of the topogram demonstrates no abnormalities. The nasal septum is at midline. No areas of bony erosion are identified. The orbits are normal. Limited view of the frontal lobes is normal. Procedure Note Joaquin Adams MD PhD - 07/09/2022 EXAMINATION: CT of the paranasal sinuses without contrast HISTORY: Sinus fullness and drainage. History of lymphoma. TECHNIQUE: CT of the paranasal sinuses was performed using sinus protocol without contrast. Contrast Information: 0 mL Optiray-350 COMPARISON: Sinus CT 02/11/2022. FINDINGS: Surgical clips are again seen in the right neck soft tissues. When compared to the prior examination, there is slight interval progression of mucosal thickening in the right maxillary sinus. Near complete opacification of the left maxillary sinus appears unchanged. There is improved mucosal thickening within the frontal sinuses. Mucosal thickening within the ethmoid air cells appears unchanged. Mucosal thickening in the sphenoid sinuses has progressed. The ostiomeatal units are obstructed bilaterally. Review of the topogram demonstrates no abnormalities. The nasal septum is at midline. No areas of bony erosion are identified. The orbits are normal. Limited view of the frontal lobes is normal. IMPRESSION: 1. Mucosal thickening has progressed within the sphenoid sinuses and right maxillary sinus and improved within the frontal sinuses and ethmoid air cells. No noncontrast CT evidence of complication. Dictated by: Feliciano Ahn M.D. The radiology attending physician has personally reviewed this study, and had reviewed and/or edited this written report and agrees with it. Electronically signed by: Joaquin Adams M.D. Khushi Cosme NP IMG CT PROCEDURES Final Resu lt * (ABNORMAL) Respiratory pathogen panel Nasopharyngeal (07/09/2022 1:16 PM CDT) Pathologist [facility] Influenza A RNA Not Detected Not Detected [facility] Influenza B RNA Not Detected Not Detected [facility] RSV RNA Not Detected Not Detected [facility] COVID-19 RNA Not Detected Not Detected [facility] Coronavirus 229E RNA Not Detected Not Detected [facility] Coronavirus HKU1 RNA Not Detected Not Detected [facility] Coronavirus NL63 RNA Not Detected Not Detected [facility] Coronavirus OC43 RNA Not Detected Not Detected [facility] Adenovirus DNA Detected(A) Not Detected [facility] Metapneumovirus RNA Not Detected Not Detected [facility] Rhinovirus/Enterov irus RNA Detected(A) Not Detected [facility] Parainfluenza 1 RNA Not Detected Not Detected [facility] Parainfluenza 2 RNA Not Detected Not Detected [facility] Parainfluenza 3 RNA Not Detected Not Detected [facility] Parainfluenza 4 RNA Not Detected Not Detected [facility] B. pertussis DNA Not Detected Not Detected [facility] B. parapertussis DNA Not Detected Not Detected [facility] C. pneumoniae DNA Not Detected Not Detected [facility] M. pneumoniae DNA Not Detected Not Detected [facility] Nasopharyngeal 07/09/2022 1: 16 PM CDT 07/09/2022 1:24 PM CDT Narrative [facility] - 07/09/2022 2:26 PM CDT Is the Patient experiencing symptoms consistent with COVID?->Yes Date of Symptom Onset->07/04/22 Reason for testing?->Symptomatic Surveillance testing for transplant patient?->No ??Interpretive Data The [employer] FilmArray Respiratory Panel (RP2.1) assay is a [...] assay has FDA clearance for testing of PHOTOVOLTAIC INSTALLATION TECHNICIAN swabs. ??The performance characteristics of this assay have been determined by [facility] Infectious Disease [facility]. Current interpretive data was last revised on 22. Khushi Cosme PHOTOVOLTAIC INSTALLATION TECHNICIAN LAB MICROBIOLOGY - GENERAL O RDERABLES Final Result Performing Organization Address [facility] Co de Phone Number [facility] [place] [address] * POC Blood Gas and Chemistries, Arterial - (07/09/2022 1:11 PM CDT) Lactate, POC 2.0 0.7 - 2.2 mmol/L [facility] Blood 07/09/2022 1:11 PM CDT 07/09/2022 1:11 PM CDT Result [facility] Notinfile Unknown LAB POCT ORDERABLES - DEVICE F inal Result Performing Organization Address [facility] de Phone Number [facility] [place] [address] * Critical Result Callback Chemistry (07/09/2022 12:48 PM CDT) Date Notified [id number] [facility] Time Notified 2327 [facility] TestName See Comment [facility] Called/Read Back Beth Smith [facility] Credentials RN [facility] Called By cinthya [facility] Blood 07/09/2022 12:4 8 PM CDT 07/09/2022 2:02 PM CDT Khushi Cosme PHOTOVOLTAIC INSTALLATION TECHNICIAN LAB BLOOD ORDERABLES Final R esult Performing Organization Address [facility] Co de Phone Number [facility] [place] [address] * eGFR (07/09/2022 12:48 PM CDT) [facility] eGFR >90 90 - 130 mL/min/1. [...] interpretive data was last reviewed 2021. Blood 07/09/2022 12:4 8 PM CDT 07/09/2022 1:43 PM CDT us Khushi Cosme NP LAB BLOOD ORDERABLES Final R esult [facility] [place] [address] * (ABNORMAL) Differential, auto (07/09/2022 12:48 PM CDT) [facility] Neutrophil abs 5.4 1.7 - 6.5 K/cumm [facility] Imm gran abs 0.0 0.0 - 0.1 K/cumm [facility] Lymphocyte abs 5.2(H) 0.8 - 3.3 K/cumm [facility] Monocyte abs 2.0(H) 0.2 - 0.8 K/cumm [facility] Eosinophil abs 1.4(H) 0.0 - 0.5 K/cumm [facility] Basophil abs 0.1 0.0 - 0.1 K/cumm [facility] Neutrophil pct 38.2 % [facility] Comment: Confirmed by smear review Interpretive Data Percent cell count reference ranges are not reported, since discordance with absolute values may lead to misinterpretation of CBC data. Current Interpretive Data was last revised on 2018. Imm gran pct 0.3 % [facility] Comment: Interpretive Data Percent cell count reference ranges are not reported, since discordance with absolute values may lead to misinterpretation of CBC data. Current Interpretive Data was last revised on 2018. Lymphocyte pct 36.8 % [facility] Comment: Interpretive Data Percent cell count reference ranges are not reported, since discordance with absolute values may lead to misinterpretation of CBC data. Current Interpretive Data was last revised on 2018. Monocyte pct 14.4 % [facility] Comment: Interpretive Data Percent cell count reference ranges are not reported, since discordance with absolute values may lead to misinterpretation of CBC data. Current Interpretive Data was last revised on 2018. Eosinophil pct 9.7 % [facility] Comment: Interpretive Data Percent cell count reference ranges are not reported, since discordance with absolute values may lead to misinterpretation of CBC data. Current Interpretive Data was last revised on 2018. Basophil pct 0.6 % [facility] Comment: Interpretive Data Percent cell count reference ranges are not reported, since discordance with absolute values may lead to misinterpretation of CBC data. Current Interpretive Data was last revised on 2018. Blood 07/09/2022 12:4 8 PM CDT 07/09/2022 1:43 PM CDT Khushi Cosme NP LAB BLOOD ORDERABLES Final R esult Performing Organization Address City/[facility]/ZIP Co de Phone Number [facility] Department [place] [address] * Histoplasma Antibody Blood (07/09/2022 12:48 PM CDT) Pathologist [facility] Histoplasma Ab, mycelial CF Negative Negative [facility] Histoplasma Ab, yeast CF Negative Negative [facility] Histoplasma Ab, Immunodiffusion Negative Negative [facility] Comment: A negative complement fixation and immunodiffusion (CF/ID) result does not exclude the diagnosis of histoplasmosis. ?? Repeat testing by CF/ID in 1-2 weeks if clinically indicated. Test Performed by: [place] [address] Sandwich Artist: Jason Sandy M.D. Ph.D.; IA# [id number] Blood 07/09/2022 12:4 8 PM CDT 07/09/2022 1:42 PM CDT us Khushi Cosme NP LAB MICROBIOLOGY - GENERAL O RDERABLES Final Result Performing Organization Address [facility] Co de Phone Number [facility] Department [place] [address] * Histoplasma Antigen Urine (07/09/2022 12:48 PM CDT) [facility] Histo Ag Ur result None Detected None Detected [facility] Histo Ag Ur interp Negative Negative [facility] Comment: Result Interpretation: Reference interval: None Detected Results reported as ng/mL in 0.20 - 20.00 ng/mL range Results above 20.00 ng/mL are reported as 'Positive, Above the Limit of Quantification' Testing Performed by: [facility], [address] [place] [address] [place] [id number]. This test was developed and its performance characteristics determined by [facility]. It has not been cleared or approved by the FDA; however, FDA clearance or approval is not currently required for clinical use. The results are not intended to be used as the sole means for clinical diagnosis or patient management decisions. Interpretative data updated 12/30/2020 Urine 07/09/2022 12:4 8 PM CDT 07/09/2022 2:48 PM CDT Khushi Cosme NP LAB MICROBIOLOGY - GENERAL O RDERABLES Final Result Performing Organization Address [facility] [place] [address] * Cryptococcal Antigen, Serum Blood (07/09/2022 12:48 PM CDT) Pathologist [facility] Cryptococcus ag, Serum Negative Negative [facility] Comment: The cryptococcal antigen test was performed using the [employer] CrAg Lateral Flow Assay. This assay is [...] Current interpretive data last revised 2018. Blood 07/09/2022 12:4 8 PM CDT 07/09/2022 1:32 PM CDT Khushi Cosme NP LAB MICROBIOLOGY - GENERAL O RDERABLES Final Result Performing Organization Address [facility] [place] [address] * (ABNORMAL) Cytomegalovirus (CMV) DNA PCR, quantitative Blood (07/09/2022 12:48 PM CDT) [facility] CMV DNA Detected( A) [facility] Comment: Interpretive Data: The quantifiable range of this assay is 34 IUnits/mL to 10,000,000 IUnits/mL (1.53 log IUnits/mL to 7.0 log IUnits/mL). Testing was performed by the NIA 6800 CMV Test ([employer] Testing performed at [facility]. Current interpretive data was last revised on 2021. CMV DNA IU/mL 12,000(C) IUnits/mL [facility] CMV DNA log IU/mL 4.08 log IUnits/mL [facility] Blood 07/09/2022 12:4 8 PM CDT 07/09/2022 2:02 PM CDT Khushi Cosme NP LAB MICROBIOLOGY - GENERAL O RDERABLES Final Result Performing Organization Address City/[facility]/ZIP Co de Phone Number [facility] [place] [address] * Filamentous fungus culture, blood Blood (07/09/2022 12:48 PM CDT) Report Final Report: No growth of fungus [facility] Blood 07/09/2022 12:4 8 PM CDT 07/09/2022 2:58 PM CDT Narrative [facility] - 08/06/2022 7:22 AM CDT Testing performed by [facility] ([phone]). Khushi Cosme NP LAB MICROBIOLOGY - GENERAL O RDERABLES Final Result Performing Organization Address City/[facility]/ZIP Co de Phone Number [facility] Department [place] [address] * Blood culture Blood Right (07/09/2022 12:48 PM CDT) Report Final Report: No growth [facility] Blood (Right) 07/09/2022 12: 48 PM CDT 07/09/2022 1:54 PM CDT Narrative [facility] - 07/13/2022 4:01 PM CDT From a different site than #1. 1. ?Blood cultures are incubated for 4 [...] organism identification may be performed using the [employer] Gram-Positive Blood Culture Assay. This assay detects microbial DNA in positive blood culture broth via hybridization of target DNA to capture oligonucleotides on a microarray. This assay has been cleared by the [place] Food and Drug Administration and its performance characteristics have been verified by the [facility]. 5. ?For questions about this culture, contact the Microbiology Laboratory at [phone]. Interpretive data was last revised on 2020. Khushi Cosme NP LAB MICROBIOLOGY - GENERAL O RDERABLES Final Result [facility] Department [place] [address] * Blood culture Blood Left (07/09/2022 12:48 PM CDT) Report Final Report: No growth [facility] Blood (Left) 07/09/2022 12:4 8 PM CDT 07/09/2022 1:54 PM CDT Narrative [facility] - 07/13/2022 4:01 PM CDT 1. ?Blood cultures are incubated for [...] organism identification may be performed using the [employer] Gram-Positive Blood Culture Assay. This assay detects microbial DNA in positive blood culture broth via hybridization of target DNA to capture oligonucleotides on a microarray. This assay has been cleared by the [place] Food and Drug Administration and its performance characteristics have been verified by the [facility]. 5. ?For questions about this culture, contact the Microbiology Laboratory at [phone]. Interpretive data was last revised on 2020. Khushi Cosme NP LAB MICROBIOLOGY - GENERAL O RDERABLES Final Result [facility] Department [place] [address] * (ABNORMAL) Urinalysis reflex to microscopic and culture Urine, clean voided (07/09/2022 12:48 PM CDT) Color, ur Yellow [facility] Clarity, ur Clear Clear [facility] Specific gravity, ur 1.015 1.003 - 1.030 [facility] pH, urine 6.[address] [facility] [facility] Protein, ur ql Negative Negative [facility] Glucose, ur ql Negative Negative [facility] Ketones, ur Negative Negative [facility] Bilirubin, ur Negative Negative [facility] Blood, ur Negative Negative [facility] Urobilinogen, ur >=8.0(A) <2.0 mg/dL [facility] Nitrite, ur Negative Negative [facility] Leukocyte esterase, ur Negative Negative [facility] UA reflex comment Reflex conditions for microscopic UA and culture not met. [facility] Urine, clean voided 07/09/2022 12:48 PM CDT 07/09/2022 1:50 PM CDT Narrative [facility] - 07/09/2022 1:55 PM CDT ?? Urine pH is affected by diet, medications, systemic acid-base disturbances, and renal tubular function. ??pH may affect urinary stone formation. ??For example, urine pH below 6.0 may help reduce the tendency for calcium phosphate stones and pH greater than 6.0 may reduce the tendency for uric acid stone formation. Source: [facility] [employer]. Last revised 11-11-2017 Khushi Cosme NP LAB MICROBIOLOGY - GENERAL O RDERABLES Final Result Performing Organization Address [facility] de Phone Number [facility] [place] [address] * Type and screen (07/09/2022 12:48 PM CDT) [facility] Carol, indirect Negative [facility] Comment:Patient has previous antibody history ABO Rh A Positive [facility] Blood 07/09/2022 12:4 8 PM CDT 07/09/2022 1:37 PM CDT Narrative [facility] - 07/09/2022 3:47 PM CDT Has the patient had Daratumumab or Isatuximab in the past 6 months?->Unknown Khushi Cosme NP LAB BLOOD BANK TEST ORDERABL ES Final Result Performing Organization Address [facility] de Phone Number [facility] [place] [address] * Phosphorus (07/09/2022 12:48 PM CDT) [facility] Phosphorus, pl 4.1 2.3 - 4.5 mg/dL [facility] Comment:Hemolyzed; result ma y be falsely elevated Blood 07/09/2022 12:4 8 PM CDT 07/09/2022 1:43 PM CDT Khushi Cosme PHOTOVOLTAIC INSTALLATION TECHNICIAN LAB BLOOD ORDERABLES Final R esult [facility] [place] [address] * Magnesium (07/09/2022 12:48 PM CDT) Pathologist [facility] Magnesium 1.5 1.4 - 2.5 mg/dL [facility] Blood 07/09/2022 12:4 8 PM CDT 07/09/2022 1:43 PM CDT Miladreji Diamondkins LAB BLOOD ORDERABLES Final R esult Performing Organization Address [facility] Co de Phone Number [facility] Department [place] [address] * (ABNORMAL) Comprehensive metabolic panel (07/09/2022 12:48 PM CDT) Pathologist [facility] Sodium 139 135 - 145 mmol/L [facility] Potassium, pl See Comment 3.3 - 4.9 mmol/L [facility] Comment:Credited; Hemolyzed Specimen Chloride 108 97 - 110 mmol/L [facility] CO2 24 22 - 32 mmol/L [facility] Anion gap 7 2 - 15 mmol/L [facility] BUN 11 8 - 25 mg/dL [facility] Creatinine 0.71(L) 0.80 - 1.30 mg/dL [facility] Glucose 134 70 - 199 mg/dL [facility] Comment: Interpretive Data Fasting glucose [...] classification and Diagnosis of Diabetes Diabetes Care 2017;40 (Suppl. 1):S11. Current interpretive data was last revised 2017. Calcium 8.8 8.5 - 10.3 mg/dL [facility] Bilirubin, total 2.1(H) 0.1 - 1.2 mg/dL [facility] Protein, pl 5.8(L) 6.5 - 8.5 g/dL [facility] Albumin 3.4(L) 3.5 - 5.0 g/dL [facility] Alk phos 278(H) 40 - 130 Units/L [facility] Comment:Hemolyzed; result ma y be falsely decreased ALT See Comment 7 - 55 Units/L [facility] Comment:Credited; Hemolyzed Specimen AST See Comment 10 - 50 Units/L [facility] Comment:Credited; Hemolyzed Specimen Blood 07/09/2022 12:4 8 PM CDT 07/09/2022 1:43 PM CDT us Khushi Cosme NP LAB BLOOD ORDERABLES Final R esult [facility] [place] [address] * (ABNORMAL) CBC with auto differential (07/09/2022 12:48 PM CDT) WBC 14.1(H) 3.8 - 9.9 K/cumm [facility] Hgb 11.2(L) 13.0 - 17.5 g/dL [facility] Hct 31.9(L) 38.9 - 50.3 % [facility] Plt 228 150 - 400 K/cumm [facility] MPV 12.8(H) 9.1 - 12.3 fL [facility] RBC 3.24(L) 4.30 - 5.80 M/cumm [facility] MCV 98.5(H) 81.3 - 96.4 fL [facility] MCH 34.6(H) 27.1 - 33.3 pg [facility] MCHC 35.1 32.3 - 35.7 g/dL [facility] RDW CV 16.8(H) 11.1 - 14.9 % [facility] RDW SD 60.0(H) 35.7 - 48.1 fL [facility] NRBC abs 0.00 0.00 - 0.01 K/cumm [facility] Blood 07/09/2022 12:4 8 PM CDT 07/09/2022 1:43 PM CDT us Khushi Cosme NP LAB BLOOD ORDERABLES Final R esult Performing Organization Address [facility] de Phone Number [facility] [place] [address] * CMV mutation detection Blood (07/09/2022 12:37 PM CDT) Report Final Report: For additional result information, see attached scanned report. 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, unspecified site Dehydration Pneumonia of right middle lobe due to infectious organism Elevated LFTs Other abnormal blood chemistry Acute recurrent maxillary sinusitis History of liver transplant (CMS/HCC) (HCC) Liver replaced by transplant Fever, unspecified fever cause Community acquired pneumonia Pneumonia, organism unspecified Subcutaneous nodule of right lower extremity Elevated LFTs Other abnormal blood chemistry History of liver transplant (CMS/HCC) (HCC) Liver replaced by transplant 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 documented in this encounter Admitting Diagnoses Diagnosis 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, unspecified site documented in this encounter Administered Medications Inactive Administered Medications - up to 3 most recent administrations Medication Order MAR Action Action Date Dose Rate Site amoxicillin-clavulanate (AUGMENTIN) 875-125 mg per tablet 875 mg of amoxicillin 875 mg of amoxicillin, oral, 2 times daily, First dose on [place] 07/12/22 at 0730, For 5 days, Indications: Pneumonia, Community Acquired, Skin/Soft Tissue InfectionIndications:Pn eumonia, Community Acquired,Skin/Soft Tissue Infection Given 07/12/2022 8:28 AM CDT 875 mg of amoxicillin azithromycin (ZITHROMAX) tablet 500 mg 500 mg, oral, Daily, First dose on Brenda 07/09/22 at 2145, For 3 days, Indications: Pneumonia, Community AcquiredIndications:Pne umonia, Community Acquired Given 07/11/2022 9:30 AM CDT 500 mg Given 07/10/2022 8:45 AM CDT 500 mg Given 07/09/2022 9:23 PM CDT 500 mg cefepime (MAXIPIME) 1,000 mg/10 mL in sterile water (premix) 1,000 mg 1,000 mg, intravenous, at 120 mL/hr, Administer over 5 Minutes, Every 12 hours scheduled, First dose on Brenda 07/09/22 at 1730, Indications: Pneumonia, Community AcquiredIndications:Pneumonia, Community Acquired New Bag 07/09/2022 4:23 PM CDT 1,000 mg 120 mL/hr cefepime (MAXIPIME) 1,000 mg/10 mL in sterile water (premix) 1,000 mg 1,000 mg, intravenous, at 120 mL/hr, Administer over 5 Minutes, Every 8 hours scheduled, First dose on Brenda 07/09/22 at 2200, Indications: Pneumonia, Community AcquiredIndications:Pneumonia, Community Acquired New Bag 07/12/2022 5:20 AM CDT 1,000 mg 120 mL/hr New Bag 07/11/2022 9:24 PM CDT 1,000 mg 120 mL/hr New Bag 07/11/2022 12:49 PM CDT 1,000 mg 120 mL/hr enoxaparin (LOVENOX) syringe 40 mg 40 mg, subcutaneous, Daily (for enoxaparin), First dose on Brenda 07/09/22 at 2145, Indications: Deep Vein Thrombosis PreventionIndications:Deep Vein Thrombosis Prevention Given 07/11/2022 8:26 PM CDT 40 mg Left Lower Abdomen Given 07/10/2022 8:05 PM CDT 40 mg Le ft Upper Abdomen Given 07/09/2022 10:29 PM CDT 40 mg R ight Lower Abdomen fluticasone propionate (FLONASE) 50 mcg/actuation nasal spray 2 spray 2 spray, each nostril, Daily, First dose on Brenda 07/09/22 at 1700Indications:Acute recurrent maxillary sinusitis Given 07/09/2022 5:13 PM CDT 2 sprays guaiFENesin ER (MUCINEX) extended release tablet 600 mg 600 mg, oral, Once, On Brenda 07/09/22 at 1845, For 1 dose, Do not crush, chew, cut, dissolve, open or otherwise manipulate tablet/capsule.Indications:Pneumonia of right middle lobe due to infectious organism Given 07/09/2022 7:06 PM CDT 600 mg guaiFENesin-dextromethorphan ER (MUCINEX DM) 600-30 mg per 12 hour tablet 1 tablet 1 tablet, oral, 2 times daily, First dose on Wed07/10/22 at 0015, For 3 days Given 07/12/2022 8:28 AM CDT 1 tablet Given 07/11/2022 8:26 PM CDT 1 tablet Given 07/11/2022 9:30 AM CDT 1 tablet immune globulin (GAMUNEX-C,GAMMAKED) 10 % infusion 25 g 25 g (rounded from 23.2 g = 400 mg/kg ? 58 kg), intravenous, Once, On Wed07/11/22 at 0815, For 1 dose, Administer over: 1 mg/kg/min x 30 minutes, then 2 mg/kg/min x 30 minutes, then 4 mg/kg/min x 30 minutes, then 6 mg/kg/min x 30 minutes, then 8 mg/kg/min until infusion complete. If initial titration was well tolerated, subsequent infusions may be titrated every 15 minutes., Indications: Hypogammaglobulinemia, acquiredIndications:Hypogammagl obulinemia,acquired Rate/Dose Change 07/11/2022 12:32 PM CDT 278 mL /hr Rate/Dose Change 07/11/2022 12:04 PM CDT 209 mL /hr Rate/Dose Change 07/11/2022 11:30 AM CDT 139 mL /hr magnesium sulfate 4 g/100 mL in water (premix) 4 g 4 g, intravenous, Administer over 90 Minutes, Every 4 hours PRN, magnesium replacement, Starting on Brenda 07/09/22 at 2056, For magnesium level of 1.2-1.5 mg/dL, Indications: hypomagnesemiaIndications:hypomagnesemia New Bag 07/12/2022 3:32 AM CDT 4 g New Bag 07/10/2022 1:54 PM CDT 4 g maribavir tablet 400 mg 400 mg, oral, 2 times daily, First dose on Wed07/10/22 at 1145, Patient's home medication supply has been approved by the pharmacy. Medication can be administered to the patient. Given 07/12/2022 8:28 AM CDT 400 mg Given 07/11/2022 8:27 PM CDT 400 mg Given 07/11/2022 9:31 AM CDT 400 mg prochlorperazine (COMPAZINE) injection 5 mg 5 mg, intravenous, Administer over 2 Minutes, Every 6 hours PRN, nausea, vomiting, Use if unable to tolerate PO, Starting on Brenda 07/09/22 at 2102, Indications: Nausea and VomitingIndications:Nausea and Vomiting prochlorperazine (COMPAZINE) tablet 5 mg 5 mg, oral, Every 6 hours PRN, nausea, vomiting, Starting on Brenda 07/09/22 at 2102, May administer IV if not tolerating oral., Indications: Nausea and VomitingIndications:Nausea and Vomiting sodium chloride 0.9% flush 10 mL 10 mL, intra-catheter, Every 12 hours scheduled, First dose on Wed07/09/22 at 2145 Given 07/12/2022 12:30 AM CDT 10 mL Given 07/11/2022 5:53 PM CDT 10 mL Given 07/11/2022 12:30 AM CDT 10 mL sodium chloride 0.9% infusion 125 mL/hr, intravenous, Continuous, Starting on Brenda 07/09/22 at 1335Indications:Dehydratio n Rate/Dose Verify 07/11/2022 12:48 PM CDT 125 mL/hr 125 mL/hr New Bag 07/09/2022 10:32 PM CDT 125 mL/hr 125 mL/hr New Bag 07/09/2022 1:48 PM CDT 125 mL/hr 125 mL/hr sodium chloride-sodium bicarbonate (NEILMED SINUS RINSE, AYR) nasal wash kit 1 packet 1 packet, each nostril, Daily, First dose on Wed07/11/22 at 1300 Given 07/12/2022 8:29 AM CDT 1 packet Given 07/11/2022 8:27 PM CDT 1 packet tacrolimus (PROGRAF) immediate-release capsule 0.5 mg 0.5 mg, oral, Every other day, First dose on Brenda 07/09/22 at 2145, Avoid grapefruit juice Given 07/11/2022 9:30 AM CDT 0 .5 mg ursodioL (ACTIGALL) capsule 600 mg 600 mg, oral, Once, On Wed07/09/22 at 1800, For 1 doseIndications:Elevated LFTs Given 07/09/2022 5:12 PM CDT 600 mg ursodioL (ACTIGALL) capsule 600 mg 600 mg, oral, Daily with dinner, First dose on Wed07/10/22 at 1800 Given 07/11/2022 5:51 PM CDT 600 mg Given 07/10/2022 4:29 PM CDT 600 mg documented in this encounter Active and Recently Administered Medications Times are shown in CDT. Scheduled Medication Order 07/10/2022 07/11/2022 07/12/2022 amoxicillin-clavulanate (AUGMENTIN) 875-125 mg per tablet 875 mg of amoxicillin 875 mg of amoxicillin, oral, 2 times daily, First dose on Wed07/12/22 at 0730, For 5 days, Indications: Pneumonia, Community Acquired, Skin/Soft Tissue Infection 0828 (Given - Provider: Natasha Lopez RN) azithromycin (ZITHROMAX) tablet 500 mg (COMPLETED) 500 mg, oral, Daily, First dose on Brenda 07/09/22 at 2145, For 3 days, Indications: Pneumonia, Community Acquired 0845 (Given - Provider: Kamilah Gonzalez RN) 0930 (Given - Provider: Kamilah Gonzalez RN) cefepime (MAXIPIME) 1,000 mg/10 mL in sterile water (premix) 1,000 mg (CANCELED) 1,000 mg, intravenous, at 120 mL/hr, Administer over 5 Minutes, Every 8 hours scheduled, First dose on Brenda 07/09/22 at 2200, Indications: Pneumonia, Community Acquired 0511 (New Bag - Provider: Andrew Gray RN)0515 (Stopped - Provider: Andrew Gray RN)1354 (New Bag - Provider: Kamilah Gonzalez RN)1400 (Stopped - Provider: Kamilah Gonzalez RN)2120 (New Bag - Provider: Andrew Gray RN)2126 (Stopped - Provider: Andrew Gray, SHAILESH) 0503 (New Bag - Provider: Andrew Gray, SHAILESH)0508 (Stopped - Provider: Andrew Gray, SHAILESH)1249 (New Bag - Provider: Kamilah Gonzalez RN)1346 (Stopped - Provider: Kamilah Gonzalez RN)2124 (New Bag - Provider: Andrew Gray, SHAILESH)2130 (Stopped - Provider: Andrew Gray RN) 0520 (New Bag - Provider: Andrew Gray, SHAILESH)0525 (Stopped - Provider: Andrew Gray, SHAILESH) enoxaparin (LOVENOX) syringe 40 mg 40 mg, subcutaneous, Daily (for enoxaparin), First dose on Brenda 07/09/22 at 2145, Indications: Deep Vein Thrombosis Prevention 2004 (Given - Provider: Andrew Gray RN) 2025 (Given - Provider: Andrew Gray, SHAILESH) fluticasone propionate (FLONASE) 50 mcg/actuation nasal spray 2 spray 2 spray, each nostril, Daily, First dose on Brenda 07/09/22 at 1700 0852 (Not Given - Provider: Kamilah Gonzalez RN - Reason: Patient/family refused) 0931 (Not Given - Provider: Kamilah Gonzalez RN - Reason: Patient/family refused) 0830 (Not Given - Provider: Natasha Lopez RN - Reason: Patient/family refused) guaiFENesin-dextrometho rphan ER (MUCINEX DM) 600-30 mg per 12 hour tablet 1 tablet (COMPLETED) 1 tablet, oral, 2 times daily, First dose on Wed07/10/22 at 0015, For 3 days 0036 (Given - Provider: Andrew Gray RN)0845 (Given - Provider: Kamilah Gonzalez RN)2005 (Given - Provider: Andrew Gray RN) 09 (Given - Provider: Kamilah Gonzalez RN)2025 (Given - Provider: Andrew Gray RN) 08 (Given - Provider: Natasha Lopez RN) heparin 10 unit/mL flush 50 Units 50 Units (5 mL), intra-catheter, 2 times daily, First dose on Wed07/09/22 at 2145, Do not use with Groshong catheter. Do not use with peripheral IV., Indications: Maintain Patency of Indwelling Vascular Catheter 0400 (Not Given - Provider: Andrew Gray RN - Reason: Contraindicated)1630 (Not Given - Provider: Kamilah Gonzalez RN - Reason: Order parameters not met) 0246 (Not Given - Provider: Andrew Gray RN - Reason: Contraindicated)1753 (Not Given - Provider: Kamilah Gonzalez RN - Reason: Order parameters not met) 0333 (Not Given - Provider: Andrew Gray RN - Reason: Contraindicated) heparin 10 unit/mL flush 50 Units 50 Units (5 mL), intra-catheter, Every 12 hours scheduled, First dose on Wed07/09/22 at 2145, Do not use with Groshong catheter. , Indications: Maintain Patency of Indwelling Vascular Catheter 0400 (Not Given - Provider: Andrew Gray RN - Reason: Contraindicated)1630 (Not Given - Provider: Kamilah Gonzalez RN - Reason: Order parameters not met) 0246 (Not Given - Provider: Andrew Gray RN - Reason: Contraindicated)1753 (Not Given - Provider: Kamilah Gonzalez RN - Reason: Order parameters not met) 0333 (Not Given - Provider: Andrew Gray RN - Reason: Contraindicated) immune globulin (GAMUNEX-C,GAMMAKED) 10 % infusion 25 g (COMPLETED) 25 g (rounded from 23.2 g = 400 mg/kg ? 58 kg), intravenous, Once, On Wed07/11/22 at 0815, For 1 dose, Administer over: 1 mg/kg/min x 30 minutes, then 2 mg/kg/min x 30 minutes, then 4 mg/kg/min x 30 minutes, then 6 mg/kg/min x 30 minutes, then 8 mg/kg/min until infusion complete. If initial titration was well tolerated, subsequent infusions may be titrated every 15 minutes., Indications: Hypogammaglobulinemia, acquired 1029 (New Bag - Provider: Kamilah Gonzalez RN)1105 (Rate/Dose Change - Provider: Kamilah Gonzalez RN)1130 (Rate/Dose Change - Provider: Kamilah Gonzalez RN)1204 (Rate/Dose Change - Provider: Kamilah Gonzalez RN)1232 (Rate/Dose Change - Provider: Kamilah Gonzalez RN)1249 (Stopped - Provider: Kamilah Gonzalez RN) maribavir tablet 400 mg 400 mg, oral, 2 times daily, First dose on Wed07/10/22 at 1145, Patient's home medication supply has been approved by the pharmacy. Medication can be administered to the patient. 1353 (Given - Provider: Kamilah Gonzalez RN) 0023 (Given - Provider: Andrew Gray RN)0931 (Given - Provider: Kamilah Gonzalez RN)2027 (Given - Provider: Andrew Gray RN) 0828 (Given - Provider: Natasha Lopez RN) sodium chloride 0.9% flush 10 mL 10 mL, intra-catheter, Every 12 hours scheduled, First dose on Brenda 07/09/22 at 2145 0130 (Given - Provider: Andrew Gray RN)1630 (Not Given - Provider: Kamilah Gonzalez RN - Reason: Other) 0030 (Given - Provider: Andrew Gray RN)1753 (Given - Provider: Kamilah Gonzalez RN) 0030 (Given - Provider: Andrew Gray RN) sodium chloride-sodium bicarbonate (NEILMED SINUS RINSE, AYR) nasal wash kit 1 packet 1 packet, each nostril, Daily, First dose on Wed07/11/22 at 1300 1346 (Not Given - Provider: Kamilah Gonzalez RN - Reason: Patient/family refused)2026 (Given - Provider: Andrew Gray RN) 0829 (Given - Provider: Natasha Lopez RN) tacrolimus (PROGRAF) immediate-release capsule 0.5 mg 0.5 mg, oral, Every other day, First dose on Wed07/09/22 at 2145, Avoid grapefruit juice 0930 (Given - Provider: Kamilah Gonzalez RN) ursodioL (ACTIGALL) capsule 600 mg 600 mg, oral, Daily with dinner, First dose on Wed07/10/22 at 1800 1629 (Given - Provider: Kamilah Gonzalez RN) 1751 (Given - Provider: Kamilah Gonzalez RN) Continuous Medication Order 07/10/2022 07/11/2022 07/12/2022 sodium chloride 0.9% infusion 125 mL/hr, intravenous, Continuous, Starting on Wed07/09/22 at 1335 1248 (Rate/Dose Verify - Provider: Kamilah Gonzalez RN) 1935 (Due: Stopped) PRN Medication Order 07/10/2022 07/11/2022 07/12/2022 acetaminophen (TYLENOL) tablet 650 mg 650 mg, oral, Every 6 hours PRN, fever, Starting on Wed07/09/22 at 2102, Indications: Fever aluminum & magnesium lusphdbzl-znxoabunhqs-mbhelnt ydramine-lidocaine (MAGIC MOUTHWASH) oral suspension 1-1-1 15 mL 15 mL, swish & swallow, 4 times daily PRN, other, mucositis, Starting on Wed07/09/22 at 2102, Indications: Chemotherapy-Induced Mucositis bacitracin-polymyxin B (POLYSPORIN) 500-10,000 unit/gram ointment tube 1 application 1 application (deactivated), topical, Every 4 hours PRN, wound care, Starting on Wed07/09/22 at 2103, Apply to affected area: other, Indications: Minor Bacterial Skin Infections camphor-menthoL (SARNA) 0.5-0.5 % lotion topical, Every 2 hours PRN, itching, Starting on Wed07/09/22 at 2102, Apply to affected area: other, Indications: Pruritus of Skin heparin 10 unit/mL flush 20-50 Units 20-50 Units (2-5 mL), intra-catheter, As needed, line care, with each use, Starting on Brenda 07/09/22 at 2024, Do not use with Groshong catheter. Do not use with peripheral IV Flush volume based on line type, size, and protocol., Indications: Maintain Patency of Indwelling Vascular Catheter heparin 10 unit/mL flush 20-50 Units 20-50 Units (2-5 mL), intra-catheter, As needed, line care, with each use, Starting on Wed07/09/22 at 2050, Do not use with Groshong catheter. Flush volume based on line type, size, and protocol. , Indications: Maintain Patency of Indwelling Vascular Catheter loperamide (IMODIUM) capsule 2 mg 2 mg, oral, Every 1 hour PRN, diarrhea, after each liquid stool (ensure that at least one C. diff assay is negative prior to initiating), Starting on Wed07/09/22 at 2101, Total loperamide dose should not exceed 16 mg in 24 hours., Indications: diarrhea magnesium sulfate 4 g/100 mL in water (premix) 4 g 4 g, intravenous, Administer over 90 Minutes, Every 4 hours PRN, magnesium replacement, Starting on Brenda 07/09/22 at 2055, For magnesium level of 1.2-1.5 mg/dL, Indications: hypomagnesemia 1354 (New Bag - Provider: Kamilah Gonzalez RN)1530 (Stopped - Provider: Kamilah Gonzalez RN) 0332 (New Bag - Provider: Andrew Gray, SHAILESH)0522 (Stopped - Provider: Andrew Gray, RN) magnesium sulfate 6 g in sodium chloride 0.9% 250 mL IVPB 6 g, intravenous, at 131 mL/hr, Administer over 120 Minutes, Every 4 hours PRN, magnesium replacement, Starting on Brenda 07/09/22 at 2055, For magnesium level less than 1.2 mg/dL and call/notify provider., Indications: hypomagnesemia polyvinyl alcohol-povidone (REFRESH CLASSIC) 1.4-0.6 % ophthalmic solution 2 drop 2 drop, each eye, Every 4 hours PRN, dry eyes, Starting on Brenda 07/09/22 at 2101, Indications: Dry Eye potassium chloride ER (KLOR-CON) extended release tablet 40 mEq 40 mEq, oral, Every 2 hours PRN, potassium replacement, Starting on Brenda 07/09/22 at 2055, HOLD dose and contact prescriber/provider if any [...] mmol/L, give 40 mEq x 1 dose. Do not crush, chew, cut, dissolve, open or otherwise manipulate tablet/capsule., Indications: hypokalemia prochlorperazine (COMPAZINE) injection 5 mg(Linked Group 1) 5 mg, intravenous, Administer over 2 Minutes, Every 6 hours PRN, nausea, vomiting, Use if unable to tolerate PO, Starting on Brenda 07/09/22 at 2101, Indications: Nausea and Vomiting prochlorperazine (COMPAZINE) tablet 5 mg(Linked Group 1) 5 mg, oral, Every 6 hours PRN, nausea, vomiting, Starting on Wed07/09/22 at 2101, May administer IV if not tolerating oral., Indications: Nausea and Vomiting sodium chloride (OCEAN) 0.65 % nasal spray 2 spray 2 spray, each nostril, Every 1 hour PRN, other, dryness, Starting on Brenda 07/09/22 at 2101, Indications: Dry Nose sodium chloride 0.9% flush 10-20 mL 10-20 mL, intra-catheter, As needed, line care, with each use, Starting on Brenda 07/09/22 at 2050, Flush volume based on line type, size, and protocol. sodium chloride 0.9% infusion 30 mL/hr, intravenous, Continuous PRN, KVO for medication administrations, Starting on Wed07/09/22 at 2024 sodium phosphate - potassium phosphate (K-PHOS NEUTRAL) tablet 500 mg 500 mg, oral, Daily PRN, phosphorus level 1.5-1.9 mg/dL, Starting on Wed07/09/22 at 2055, Contact provider for phosphorus level less than 1.5 mg/dL. Each tablet contains elemental phosphorus 250 mg (8 mmol), potassium 45 mg (1.1 mEq), and sodium 298 mg (13 mEq)., Indications: hypophosphatemia white petrolatum-mineral oiL (EUCERIN) cream topical, Every 2 hours PRN, dry skin, Starting on Wed07/09/22 at 2102, Apply to affected area: other, Indications: Dry Skin Linked Groups Order Group 1: prochlorperazine (COMPAZINE) tablet 5 mgJump to med 5 mg, oral, Every 6 hours PRN, nausea, vomiting, Starting on Wed07/09/22 at 2101, May administer IV if not tolerating oral., Indications: Nausea and Vomiting Or prochlorperazine (COMPAZINE) injection 5 mgJump to med 5 mg, intravenous, Administer over 2 Minutes, Every 6 hours PRN, nausea, vomiting, Use if unable to tolerate PO, Starting on Wed07/09/22 at 2101, Indications: Nausea and Vomiting documented in this encounter Orders Medications Ordered That John ht Not Have Been Administered Count Last Ordered Date First Ordered Date potassium chloride 40 mEq/52 0 mL in sodium chloride 0.9% (premix) 40 mEq 1 07/12/2022 acetaminophen (TYLENOL) tablet 650 mg 1 06/2022 aluminum & magnesium xhggexvty-etyhwunlwig-dnqjdicywivwlsy-lido yanely (MAGIC MOUTHWASH) oral suspension 1-1-1 15 mL 1 07/09/2022 bacitracin-polymyxin B (POLY SPORIN) 500-10,000 unit/gram ointment tube 1 application 1 07/09/2022 camphor-menthoL (SARNA) 0.5-0.5 % lotion 1 07/09/2022 heparin 10 unit/mL flush 20-50 Units 2 06/2022 heparin 10 unit/mL flush 50 Units 2 022 heparin 100 unit/mL injection 500 Units 1 0 07/09/2022 loperamide (IMODIUM) capsule 2 mg 1 022 magnesium sulfate 6 g in sod ium chloride 0.9% 250 mL IVPB 1 07/09/2022 polyvinyl alcohol-povidone ( REFRESH CLASSIC) 1.4-0.6 % ophthalmic solution 2 drop 1 07/09/2022 potassium chloride ER (KLOR- CON) extended release tablet 40 mEq 1 07/09/2022 prochlorperazine (COMPAZINE) injection 5 mg 1 07/09/2022 prochlorperazine (COMPAZINE) tablet 5 mg 1 07/09/2022 sodium chloride (OCEAN) 0.65 % nasal spray 2 spray 1 07/09/2022 sodium chloride 0.9% flush 10 mL 1 07/09/20 sodium chloride 0.9% flush 10-20 mL 1 07/09 sodium chloride 0.9% infusion 1 07/09/2022 sodium phosphate - potassium phosphate (K-PHOS NEUTRAL) tablet 500 mg 1 07/09/2022 white petrolatum-mineral oiL (EUCERIN) cream 1 07/09/2022 Lab Orders Without Results Count Last Ordered D ate First Ordered Date POC BLOOD GAS AND CHEMISTRIES, VENOUS 1 06/2022 Diet Count Last Ordered Date First Orde red Date ADULT DISCHARGE DIET 1 07/12/2022 Nursing Count Last Ordered Date First Orde red Date DISCHARGE CALL PROVIDER 8 07/12/2022 MEASURE HEIGHT AND LENGTH 1 07/09/2022 TELEMETRY MONITORING 1 07/09/2022 VITAL SIGNS 1 07/09/2022 WEIGH PATIENT 1 07/09/2022 Consult Count Last Ordered Date First Orde red Date IP CONSULT TO DERMATOLOGY 1 07/10/2022 IP CONSULT TO ENT 1 07/10/2022 CONSULT TO TRANSPLANT - LIVER 1 07/09/2022 CONSULT TO TRANSPLANT INFECTIOUS DISEASE 1 07/09/2022 IP CONSULT [facility] 1 022 Isolation Count Last Ordered Date First Orde red Date INITIATE CONTACT ISOLATION 1 07/09/2022 INITIATE DROPLET ISOLATION 1 07/09/2022 Admission Count Last Ordered Date First Orde red Date ADMIT TO INPATIENT 1 07/09/2022 Discharge Count Last Ordered Date First Orde red Date DISCHARGE PATIENT 1 07/12/2022 documented in this encounter Additional Health Concerns Infection Onset Date Last Indicated Resolved Time Adenovirus, contact + droplet 07/09/2022 07/09/2022 07/16/2022 3:05 AM CDT Rhino/Enterovirus 07/09/2022 07/09/2022 07/16/2022 3:05 AM CDT documented as of this encounter Care Teams Food Products Sales Representative Relationship Specialty Start Date End Date Guero Colunga DO PCP - General Internal Medicine 03/22/19 04/18/23 Amber Montesinos, SHAILESH Online Services Manager Transplant 11/17/19 Jil Duncan MD Consulting Physician Infectious Diseases 01/10/20 Anita Gillespie MD Medical Oncologist/Safety Deposit Boxes Custodian Medical Oncology 10/07/20 Tabitha Hurley MD [address] [facility] [address] [place] [address] Consulting Physician Rheumatology 10/22/21 documented as of this encounter
--- OUTSIDE RECORDS SUMMARY | 2024-10-28 06:11 | XMS_ITS | Encounter Summary ---
Author Organization [facility] Address [address] [place] [address] Phone Care Team Providers Care German Teacher Name Role Phone Guero Colunga DO Primary Care Provider [phone] Amber Montesinos RN Unavailable [phone] Jil Duncan MD Unavailable [phone] Anita Gillespie MD Unavailable [phone] Tabitha Hurley MD Unavailable [phone] Massiel Gastelum MD Unavailable [phone] Encounter Details Date Type Department Care Team (Late st Contact Info) Description 11/17/2022 Telephone [facility] Infectious Diseases [address] [place] [address] [address] [place] [address] Lisandra Auguste, AIDEN [address] [place] [address] [address] [place] [address] Social History Tobacco Use Types Packs/Day Years [...] file Legal Sex Male 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 I instructed his mother to restart Valcyte at treatment dose of 900 mg PO BID. Will continue to follow CMV levels and decrease back to maintenance dosing once CMV levels improve. NESS PROFESSOR documented in this encounter Plan of Treatment Scheduled Procedures Name Priority Associated Diagnoses Date/Ti me COLONOSCOPY Encounter for screening for colorectal cancer in high risk patient Family history of rectal cancer documented as of this encounter Visit Diagnoses Not on filedocumented in this encounter Care Teams German Teacher Relationship Specialty Start Date End Date Guero Colunga DO PCP - General Internal Medicine 03/22/19 04/18/23 Amber Montesinos RN Foundry Worker Transplant 11/17/19 Jil Duncan MD Consulting Physician Infectious Diseases 01/10/20 Anita Gillespie MD Medical Oncologist/Certified Lactation Educator Medical Oncology 10/07/20 Tabitha Hurley MD [address] [place] [address] Consulting Physician Rheumatology 10/22/21 Massiel Gastelum MD [address] [place] [address] Consulting Physician Otolaryngology 08/27/22 documented as of this encounter
--- OUTSIDE RECORDS SUMMARY | 2024-10-28 06:11 | XMS_ITS | Encounter Summary ---
Author Organization [facility] [employer] [facility] Address [address] [place] [address] Phone Care Team Providers Care Dipper And Drier Name Role Phone Guero Colunga DO Primary Care Provider [phone] Amber Montesinos RN Unavailable [phone] Jil Duncan MD Unavailable [phone] Anita Gillespie MD Unavailable [phone] Tabitha Hurley MD Unavailable [phone] Massiel Gastelum MD Unavailable [phone] Reason for Visit * Reason Comments Post-op Sinus surgery Encounter Details Date Type Department Care Team (Late st Contact Info) Description 09/28/2022 8:00 AM YEAST DISTILLER Office Visit [facility] ENT [address] [facility] [address] [place] [address] Massiel Gastelum MD [address] [facility] [address] [place] [address] Chronic pansinusitis (Primary Dx); Immunocompromised (CMS/HCC) (HCC); Status post functional endoscopic sinus surgery Social History Tobacco Use Types Packs/Day [...] on file Legal Sex Male 6:28 AM YEAST DISTILLER Gender Identity Not on file Sexual Orientation Straight 08/22/2021 9: 23 AM CDT documented as of this encounter Patient Instructions * Patient Instructions* Massiel Gastelum MD - 09/28/2022 8:00 AM YEAST DISTILLER Budesonide irrigation daily - in the saline irrigation Do the saline irrigation twice a day - once alone and once with the steroid. T DISTILLER documented in this encounter Progress Notes * Massiel Gastelum MD - 09/28/2022 8:00 AM CST Otolaryngology Post-operative follow-up Note Subjective Patient ID: Beka Nichols is a 27 y.o. male. Chief Complaint: Chief Complaint Patient presents with Post-op Sinus surgery HPI: Beka Nichols is a 27 y.o. [...] to the middle meatus. Left middle turbinateresected. After his last office visit, he was treated with a short course of oral prednisone and Levaquin. Heresumed b.i.d. budesonide. He had a self-limited epistaxis episode 09/21/2022 with clot. Slight blood- tinged mucus in the pastday. He stopped using budesonide 09/21/2022 and his also not use saline irrigation in the past week. No facial pressure or pain. Hearing much improved. Ear occ pops. No cough. He is followed by Dr. Gillespie in [...] no skin lesions. Hearing is grossly intact. NOSE: External nose has no skin lesions. Nasal mucosa is moist. Septum is midline caudally with well-healing incision. See endoscopy. ORAL CAVITY/OROPHARYNX: Normal oral vestibule without lesions, masses, or ulcerations. NECK: No masses. HEME/LYMPHATIC: No cervical lymphadenopathy. MUSCULOSKELETAL: Ambulates without difficulty. Neck full range of motion. RESPIRATORY: Breathing comfortably without audible stridor, stertor or wheeze. Procedure: Nasal Endoscopy: Due to inadequate visualization on anterior rhinoscopy, rigid nasal endoscopy was undertaken. After topical nasal decongestant and anesthetic, the rigid nasal endoscope was introduced into the right and left nasal cavity. Mildly edematous nasal mucosa, notably improved from last examination. Left synechiae between the septum and inferior turbinate, divided with straight Yeison- Cut forceps. Right and left dry mucous, suction from the inferior turbinates. Clear mucus suctioned from the frontal outflow tract and middle meatus. Small amount of mucus in the sphenoid ethmoid recess, suctioned clear. No clot. Nasopharynx clear. The endoscope was removed and the patient tolerated the p rocedure well. Assessment/Plan 1. Chronic pansinusitis 2. Immunocompromised (CMS/HCC) (HCC) 3. Status post functional endoscopic sinus surgery Resume saline irrigation b.i.d. and budesonide in the saline irrigation daily. Follow-up 1 month Michael Gastelum MD FACS Professor Department of Otolaryngology [facility] T DISTILLER documented in this encounter Plan of Treatment Scheduled Procedures Name Priority Associated Diagnoses Date/Ti me COLONOSCOPY Encounter for screening for colorectal cancer in high risk patient Family history of rectal cancer documented as of this encounter Visit Diagnoses Diagnosis Chronic pansinusitis- Primary Other chronic sinusitis Immunocompromised (HCC) Unspecified immunity deficiency Status post functional endoscopic sinus surgery Other postprocedural status documented in this encounter Care Teams Dipper And Drier Relationship Specialty Start Date End Date Guero Colunga DO PCP - General Internal Medicine 03/22/19 04/18/23 Amber Montesinos RN Central Communications Specialist Transplant 11/17/19 Jil Duncan MD Consulting Physician Infectious Diseases 01/10/20 Anita Gillespie MD Medical Oncologist/Journey Lineman Medical Oncology 10/07/20 Tabitha Hurley MD [address] [place] [address] Consulting Physician Rheumatology 10/22/21 Massiel Gastelum MD [address] [place] [address] Consulting Physician Otolaryngology 08/27/22 documented as of this encounter
--- OUTSIDE RECORDS SUMMARY | 2024-10-28 06:11 | XMS_ITS | Encounter Summary ---
Author Organization [facility] Healthcare Address [address] [place] [address] Care Team Providers Care Psychosocial Rehabilitation Counselor Name Role Phone Guero Colunga Primary Care Provider [phone] Amber Montesinos RN Unavailable [phone] Jil Duncan MD Unavailable [phone] Anita Gillespie MD Unavailable [phone] Tabitha Hurley MD Unavailable [phone] Massiel Gastelum MD Unavailable [phone] Encounter Details Date Type Department Care Team (Late st Contact Info) Description 09/14/2022 Telephone [facility] Transplant Liver [address] [facility] [address] [phone] [place] [address] Amber Montesinos, SHAILESH Social History Tobacco Use [...] on file Legal Sex Male 6:28 AM STRADDLE BUG Gender Identity Not on file Sexual Orientation Straight 08/22/2021 9: 23 AM CDT documented as of this encounter Miscellaneous Notes * Telephone Encounter - Amber Vargas RN - 09/14/2022 5:26 PM CST Placed call to patient and spoke to his mother. Reviewed appointment made with Immunology in December.She states she is not sure if this is due to his insurance ending or if this was the first available appointment. Let her know that I would check to see if there was any possibility for patient to beseen when he is at [facility] for his follow up with Dr. Gastelum. She states that she is not sure if patient received his phone call yet for his interview for [place] Medicaid. She will keep us updated on statusof his insurance. Let her know that I would reach back out if they are able to see patient sooner. Inquired about his IVIG. She also states that patient normally receives his IVIG the first weekend of the month. Since patient's insurance will end at the end of September, they will call the company to see if he can get billed for it before October starts. Placed call to Dr. Neri's office. This is the first available appointment. Received message from his nurse, Fatimah. She states that Dr. Neri does not see patient's on Wednesday' but she can check with him to see if there is any other a vailabilities. Reviewed apt time with Dr. Gresham. Ok to keep December appointment. Inquired if there was anything needed from us before patient's insurance ends this month. Patient may only be able to receive one additional dose of IVIG for October. Will follow up with patient if any additional orders received. DDLE BUG documented in this encounter Plan of Treatment Scheduled Procedures Name Priority Associated Diagnoses Date/Ti me COLONOSCOPY Encounter for screening for colorectal cancer in high risk patient Family history of rectal cancer documented as of this encounter Visit Diagnoses Not on filedocumented in this encounter Care Teams Psychosocial Rehabilitation Counselor Relationship Specialty Start Date End Date Guero Colunga DO PCP - General Internal Medicine 03/22/19 04/18/23 Amber Montesinos, RN Meter Maker Transplant 11/17/19 Jil Duncan MD Consulting Physician Infectious Diseases 01/10/20 Aniat Gillespie MD Medical Oncologist/Finishing Range Supervisor Medical Oncology 10/07/20 Tabitha Hurley MD [address] [facility] 14 [place] [address] Consulting Physician Rheumatology 10/22/21 Massiel Gastelum MD [address] [place] [address] Consulting Physician Otolaryngology 08/27/22 documented as of this encounter
--- OUTSIDE RECORDS SUMMARY | 2024-10-28 06:11 | XMS_ITS | Encounter Summary ---
Author Organization [facility] Address [address] [place] [address] Phone Care Team Providers Care Cyber Reverse Engineer Name Role Phone Guero Colunga DO Primary Care Provider [phone] Amber Montesinos RN Unavailable [phone] Jil Duncan MD Unavailable [phone] Anita Gillespie MD Unavailable [phone] Tabitha Hurley MD Unavailable [phone] Encounter Details Date Type Department Care Team (Late st Contact Info) Description 08/05/2022 Telephone [facility] ENT [address] [facility] Office [address] [address] Massiel Gastelum MD [address] [facility] [address] [place] [address] Social History Tobacco Use Types Packs/Day Years [...] on file Legal Sex Male 6:28 AM RADIOLOGY DIRECTOR Gender Identity Not on file Sexual Orientation Straight 08/22/2021 9: 23 AM CDT documented as of this encounter Miscellaneous Notes * Telephone Encounter - Marlene Moss RMA - 08/05/2022 4:06 PM CDT ----- Message from Massiel Gastelum MD sent at 08/05/2022 11:16 AM CDT ----- Regarding: FW: Sinus infection and appointment Yes - he has tolerated Augmentin well in the past, and, I believe, it has been beneficial. Pls send Augmentin x 3 weeks. Surgery is scheduled for end of the month. Thanks - AO ----- Message ----- From: Marlene Moss RMA Sent: 08/05/2022 10:05 AM CDT To: Massiel Gastelum MD Subject: FW: Sinus infection and appointment ----- Message ----- From: eBka Contreras Simone Sent: 08/05/2022 9:40 AM CDT To: TEA Jackson Subject: Sinus infection and appointment Beka has developed another sinus infection. Coughing up some thick mucus and tear ducks have pusscoming out. Is there anyway he could get a Antibiotic? documented in this encounter Plan of Treatment Scheduled Procedures Name Priority Associated Diagnoses Date/Ti me COLONOSCOPY Encounter for screening for colorectal cancer in high risk patient Family history of rectal cancer documented as of this encounter Visit Diagnoses Not on filedocumented in this encounter Care Teams Cyber Reverse Engineer Relationship Specialty Start Date End Date Guero Colunga DO PCP - General Internal Medicine 03/22/19 04/18/23 Amber Montesinos, RN Acquisitions Editor Transplant 11/17/19 Jil Duncan MD Consulting Physician Infectious Diseases 01/10/20 Anita Gillespie MD Medical Oncologist/Anatomy And Physiology Instructor Medical Oncology 10/07/20 Tabitha Hurley MD [address] [facility] 14 [place] [address] Consulting Physician Rheumatology 10/22/21 documented as of this encounter
--- OUTSIDE RECORDS SUMMARY | 2024-10-28 06:11 | XMS_ITS | Encounter Summary ---
Author Organization [facility] Address [address] [place] [address] Phone Care Team Providers Care Molding Associate Name Role Phone Guero Colunga DO Primary Care Provider [phone] Amber oMntesinos RN Unavailable [phone] Jil Duncan MD Unavailable [phone] Anita Gillespie MD Unavailable [phone] Tabitha Hurley MD Unavailable [phone] Massiel Gastelum MD Unavailable [phone] Encounter Details Date Type Department Care Team (Late st Contact Info) Description 09/28/2022 Orders Only [facility] Oncology [address] [facility] 7th [place] [address] [place] [address] Sherry Gomez, VANNESSAA Social History Tobacco Use Types Packs/Day Years [...] on file Legal Sex Male 6:28 AM REFINERY OPERATOR 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 Gender Identity Not on file Sexual Orientation Straight 08/22/2021 9: 23 AM CDT documented as of this encounter Plan of Treatment Scheduled Procedures Name Priority Associated Diagnoses Date/Ti me COLONOSCOPY Encounter for screening for colorectal cancer in high risk patient Family history of rectal cancer documented as of this encounter Visit Diagnoses Not on filedocumented in this encounter Care Teams Molding Associate Relationship Specialty Start Date End Date Guero Colunga DO PCP - General Internal Medicine 03/22/19 04/18/23 Amber Montesinos, SHAILESH Data Management Manager Transplant 11/17/19 Jil Duncan MD Consulting Physician Infectious Diseases 01/10/20 Anita Gillespie MD Medical Oncologist/Attorney Recruiter Medical Oncology 10/07/20 Tabitha Hurley MD [address] [facility] [address] [place] [address] Consulting Physician Rheumatology 10/22/21 Massiel Gastelum MD [address] [place] [address] Consulting Physician Otolaryngology 08/27/22 documented as of this encounter
--- OUTSIDE RECORDS SUMMARY | 2024-10-28 06:11 | XMS_ITS | Encounter Summary ---
Author Organization [facility] Healthcare Address [address] [place] [address] Care Team Providers Care De Icer Name Role Phone Guero Colunga Primary Care Provider [phone] Amber Montesinos RN Unavailable [phone] Jil Duncan MD Unavailable [phone] Anita Gillespie MD Unavailable [phone] Tabitha Hurley MD Unavailable [phone] Massiel Gastelum MD Unavailable [phone] Encounter Details Date Type Department Care Team (Late st Contact Info) Description 10/19/2022 Telephone [facility] Transplant Liver [address] [facility] [address] [phone] [place] [address] Amber Montesinos, SHAILESH Social History Tobacco Use [...] file Legal Sex Male 6: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 Mom reporting via [employer] that patient was approved for [place] Medicaid. Asked for them to please send a copy of his insurance information when he can. Inquired if patient can continue to receive his IVIG with updated insurance information. They will check on this and get back to us. OR PAYROLL MANAGER documented in this encounter Plan of Treatment Scheduled Procedures Name Priority Associated Diagnoses Date/Ti me COLONOSCOPY Encounter for screening for colorectal cancer in high risk patient Family history of rectal cancer documented as of this encounter Visit Diagnoses Not on filedocumented in this encounter Care Teams De Icer Relationship Specialty Start Date End Date Guero Colunga DO PCP - General Internal Medicine 03/22/19 04/18/23 Amber Montesinos RN Dressing Room Porter Transplant 11/17/19 Jil Duncan MD Consulting Physician Infectious Diseases 01/10/20 Anita Gillespie MD Medical Oncologist/Business Transformation Consultant Medical Oncology 10/07/20 Tabitha Hurley MD [address] [facility] 14 [place] [address] Consulting Physician Rheumatology 10/22/21 Massiel Gastelum MD [address] [place] [address] Consulting Physician Otolaryngology 08/27/22 documented as of this encounter
--- OUTSIDE RECORDS SUMMARY | 2024-10-28 06:11 | XMS_ITS | Encounter Summary ---
Author Organization [facility] Healthcare Address [address] [place] [address] Care Team Providers Care Manager Patient Name Role Phone Guero Colunga Primary Care Provider [phone] Amber Montesinos RN Unavailable [phone] Jil Duncan MD Unavailable [phone] Anita Gillespie MD Unavailable [phone] Tabitha Hurley MD Unavailable [phone] Massiel Gastelum MD Unavailable [phone] Encounter Details Date Type Department Care Team (Late st Contact Info) Description 11/18/2022 Orders Only [facility] Health Information Management [address] [place] [address] Scanning, Provider Social History Tobacco Use Types [...] on file Legal Sex Male 6:28 AM INVENTORY ASSISTANT Gender Identity Not on file Sexual Orientation Straight 08/22/2021 9: 23 AM CDT documented as of this encounter Plan of Treatment Scheduled Procedures Name Priority Associated Diagnoses Date/Ti me COLONOSCOPY Encounter for screening for colorectal cancer in high risk patient Family history of rectal cancer documented as of this encounter Procedures Procedure Name Priority Date/Time Associated Diagnosis Comments SCAN - LABS 11/18/2022 5:10 PM INVENTORY ASSISTANT documented in this encounter Results * SCAN - LABS (11/18/2022 5:10 PM INVENTORY ASSISTANT) us Provider Scanning Final Result documented in this encounter Visit Diagnoses Not on filedocumented in this encounter Care Teams Manager Patient Relationship Specialty Start Date End Date Guero Colunga DO PCP - General Internal Medicine 03/22/19 04/18/23 Amber Montesinos RN Industrial X Ray Operator Transplant 11/17/19 Jil Duncan MD Consulting Physician Infectious Diseases 01/10/20 Anita Gillespie MD Medical Oncologist/Cap Parts Cutter Medical Oncology 10/07/20 Tabitha Hurley MD [address] [place] [address] Consulting Physician Rheumatology 10/22/21 Massiel Gastelum MD [address] [place] [address] Consulting Physician Otolaryngology 08/27/22 documented as of this encounter
--- OUTSIDE RECORDS SUMMARY | 2024-10-28 06:11 | XMS_ITS | Encounter Summary ---
Author Organization [facility] Healthcare Address [address] [place] [address] Care Team Providers Care Product Distribution Specialist Name Role Phone Guero Colunga Primary Care Provider [phone] Amber Montesinos RN Unavailable [phone] Jil Duncan MD Unavailable [phone] Anita Gillespie MD Unavailable [phone] Tabitha Hurley MD Unavailable Encounter Details Date Type Department Care Team (Late st Contact Info) Description 07/28/2022 Orders Only [facility] Health Information Management [address] [place] [address] Scanning, Provider Social History Tobacco Use Types [...] on file Legal 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 Gender Identity Not on file Sexual Orientation Straight 08/22/2021 9: 23 AM CDT documented as of this encounter Plan of Treatment Scheduled Procedures Name Priority Associated Diagnoses Date/Ti me COLONOSCOPY Encounter for screening for colorectal cancer in high risk patient Family history of rectal cancer documented as of this encounter Procedures Procedure Name Priority Date/Time Associated Diagnosis Comments SCAN - LABS 07/28/2022 6:22 AM CDT documented in this encounter Results * SCAN - LABS (07/28/2022 6:22 AM CDT) us Provider Scanning Final Result documented in this encounter Visit Diagnoses Not on filedocumented in this encounter Care Teams Product Distribution Specialist Relationship Specialty Start Date End Date Guero Colunga DO PCP - General Internal Medicine 03/22/19 04/18/23 Amber Montesinos RN Dump Truck Operator Transplant 11/17/19 Jil Duncan MD Consulting Physician Infectious Diseases 01/10/20 Anita Gillespie MD Medical Oncologist/Claim Agent Medical Oncology 10/07/20 Tabitha Hurley MD [address] [facility] 14 [place] [address] Consulting Physician Rheumatology 10/22/21 documented as of this encounter
--- OUTSIDE RECORDS SUMMARY | 2024-10-28 06:11 | XMS_ITS | Encounter Summary ---
Author Organization [facility] Address [address] [place] [address] Phone Care Team Providers Care Assistant Professor Of Radiology Name Role Phone Guero Colunga DO Primary Care Provider [phone] Amber Montesinos RN Unavailable [phone] Jil Duncan MD Unavailable [phone] Anita Gillespie MD Unavailable [phone] Tabitha Hurley MD Unavailable [phone] Massiel Gastelum MD Unavailable [phone] Reason for Visit * Reason Comments Post-op * Consultation (Routine) - Closed Specialty Diagnoses / Procedures Referred By Contac t Referred To Contact Otolaryngology Diagnoses 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) Frequent sinus infections Anita Gillespie MD Phone: tel: fax: Massiel Gastelum MD [address] [place] [address] Phone: tel: fax: Referral ID Status Reason Start Date Expiration Date V isits Requested Visits Authorized [id number] Closed Specialty Services Required 10/28/2021 11/27/2022 99 99 Encounter Details Date Type Department Care Team (Late st Contact Info) Description 11/09/2022 8:00 AM ROPEWALK ROPE MAKER Office Visit [facility] ENT [address] [facility] Medical Office Building [address] [place] [address] Massiel Gastelum MD [address] [facility] [address] [place] [address] Chronic pansinusitis (Primary Dx); Status post functional endoscopic sinus surgery; Immunocompromised patient (CMS/HCC) (HCC) Social History Tobacco Use Types [...] on file Legal Sex Male 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 ?This decongests and improves the airflow into your nose. The sinus passages begin to open. ?Studies have also shown that a salt water and an alkaline (baking soda) irrigation solution improves nasal membrane cell function (mucociliary flow of mucus debris). Saline Solution: Recipe ?Choose a 1-quart glass jar that is thoroughly cleansed. ?Fill with sterile or distilled water, or you can boil water from the tap. ?Add 1 to 2 heaping teaspoons of pickling/davin/sea salt (NOT table salt as it contains a largenumber of additives). This salt is available at the grocery store in the food davin section. ?Add 1 teaspoon of Arm & Hammer Baking Soda (pure bicarbonate). ?Add one respule of Pulmicort to the solution. ?Mix ingredients together and store at room temperature. Discard after one week. If you find this solution too strong, you may decrease the amount of salt added to 1 to 1 ?? teaspoons. With children it is often best to start with a milder solution and advance slowly. OR Salt packet (Neilmed or other) + Add one respule of Pulmicort (budesonide) to the solution + distilled water or boiled water to the fill line (240ml, 8oz) Instructions: ?Irrigate with 240 ml (8 oz) once or twice daily. Many people prefer to warm the solution slightly in the microwave - but be sure that the solution is NOT HOT. Stand over the sink (some do this in the shower) and squirt the solution into each side of your nose, keeping your mouth open. This allows you to spit the saltwater out of your mouth, if some runs into your mouth. It will not harm you if you swallow a little. ?If you have been told to use a nasal steroid such as Flonase, Rhinocort, Nasonex, or Nasacort, youshould always use isortonic saline solution first, then use your nasal steroid product. The nasal steroid is much more effective when sprayed onto clean nasal membranes and the steroid medicine will reach deeper into the nose. ?Some people may experience a little burning sensation the first few times they use a isotonic saline solution, but this usually goes away within a few days. WALK ROPE MAKER documented in this encounter Progress Notes * Massiel Gastelum MD - 11/09/2022 8:00 AM CST Otolaryngology Post-operative follow-up Note Subjective Patient ID: Beka Nichols is a 27 y.o. male. Chief Complaint: Chief Complaint Patient presents with Post-op HPI: Beka Nichols is a 27 y.o. [...] to the middle meatus. Left middle turbinateresected. Had epistaxis yesterday at time of thick mucus on right. Some clot on left this am. When uses the saline irrigation, left ear feels fluid collection. Hasn't used saline since mid Oct. He is not using any nasal sprays - medicated nor saline. He has not been on oral prednisone or antibiotic since September. No facial pressure or pain. Hearing much improved overall. Occasional episodes of right earache, self-limited. Left earache only associated after saline irrigation. No cough. He is followed by Dr. [...] decongestant and anesthetic, the rigid nasal endoscope (R5) was introduced into the right and left nasal cavity. Mildly edematous nasal mucosa. Thick dried mucus suction from right and left sides with #7 and #10 Valles tip suctions. Left synechiae between the septum and inferior turbinate. Maxillary antrostomies patent bilaterally, edematous mucosa, thick mucus suction from the openings. Mucus suctioned from the frontal sinus outflow tract and inferior meatus bilaterally. Dried mucus suctioned from the nasopharynx and sphenoethmoid recess bilaterally. The endosc ope was removed and the patient tolerated the procedure well. Assessment/Plan 1. Chronic pansinusitis 2. Status post functional endoscopic sinus surgery 3. Immunocompromised patient (CMS/HCC) (HCC) Resume saline irrigation b.i.d. and budesonide in the saline irrigation daily. Try Navage to see ifthis helps with the ear fullness and is better tolerated. Then use the Sinus Rinse prn. Strongly encouraged patient to use some form of saline throughout the day. Follow-up 6 weeks, earlier p.r.n. M. Bonita Gastelum MD FACS Professor Department of Otolaryngology [facility] [employer] [facility] WALK ROPE MAKER documented in this encounter Plan of Treatment Scheduled Procedures Name Priority Associated Diagnoses Date/Ti or COLONOSCOPY Encounter for screening for colorectal cancer in high risk patient Family history of rectal cancer documented as of this encounter Visit Diagnoses Diagnosis Chronic pansinusitis- Primary Other chronic sinusitis Status post functional endoscopic sinus surgery Other postprocedural status Immunocompromised patient (HCC) documented in this encounter Care Teams Assistant Professor Of Radiology Relationship Specialty Start Date End Date Guero Colunga DO PCP - General Internal Medicine 03/22/19 04/18/23 Amber Montesinos, SHAILESH Automotive Window Tinter Transplant 11/17/19 Jil Duncan MD Consulting Physician Infectious Diseases 01/10/20 Anita Gillespie MD Medical Oncologist/Lift Team Technician Medical Oncology 10/07/20 Tabitha Hurley MD [address] [facility] 14 [place], [place] [id number] Consulting Physician Rheumatology 10/22/21 Massiel Gastelum MD [address] [place] [address] Consulting Physician Otolaryngology 08/27/22 documented as of this encounter
--- OUTSIDE RECORDS SUMMARY | 2024-10-28 06:11 | XMS_ITS | Encounter Summary ---
Author Organization [facility] Address [address] [place] [address] Phone Care Team Providers Care Sports Betting Manager Name Role Phone Guero Colunga DO Primary Care Provider [phone] Amber Montesinos RN Unavailable [phone] Jil Duncan MD Unavailable [phone] Anita Gillespie MD Unavailable [phone] Tabitha Hurley MD Unavailable [phone] Massiel Gastelum MD Unavailable [phone] Encounter Details Date Type Department Care Team (Late st Contact Info) Description 12/22/2022 Orders Only [facility] Infectious Diseases [address] [place] [address] [address] [place] [address] Lisandra Auguste, AIDEN [address] [place] [address] 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HCC) (Primary Dx) [...] on file Legal Sex Male 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 Gender Identity Not on file Sexual Orientation Straight 08/22/2021 9: 23 AM CDT documented as of this encounter Progress Notes * Lisandra Auguste NP - 12/22/2022 1:51 PM CST CMV PCR ordered to be drawn on 12/30/22 CHIEF documented in this encounter Plan of Treatment Scheduled Procedures Name Priority Associated Diagnoses Date/Ti me COLONOSCOPY Encounter for screening for colorectal cancer in high risk patient Family history of rectal cancer documented as of this encounter Results * (ABNORMAL) Cytomegalovirus (CMV) DNA PCR, quantitative Blood (12/30/2022 6:46 AM FIRE CHIEF) CMV DNA Detected( A) [facility] Comment: Interpretive Data: The quantifiable range of this assay is 34 IUnits/mL to 10,000,000 IUnits/mL (1.53 log IUnits/mL to 7.0 log IUnits/mL). Testing was performed by the NIA 6800 CMV Test ([employer] Testing performed at [facility]. Current interpretive data was last revised on 2021. CMV DNA IU/mL 5,950 IUnits/mL [facility] CMV DNA log IU/mL 3.77 log IUnits/mL [facility] Blood 12/30/2022 6:46 AM FIRE CHIEF 12/30/2022 7:55 AM FIRE CHIEF us Lisandra Auguste NP LAB MICROBIOLOGY - GENERA L ORDERABLES Final Result [facility] Department [place] [address] documented in this encounter Visit Diagnoses Diagnosis 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 documented in this encounter Care Teams Sports Betting Manager Relationship Specialty Start Date End Date Guero Colunga DO PCP - General Internal Medicine 03/22/19 04/18/23 Amber Montesinos, SHAILESH Furniture Shampooer Transplant 11/17/19 Jil Duncan MD Consulting Physician Infectious Diseases 01/10/20 Anita Gillespie MD Medical Oncologist/Distributor Sales Manager Medical Oncology 10/07/20 Tabitha Hurley MD [address] [place] [address] Consulting Physician Rheumatology 10/22/21 Massiel Gastelum MD [address] [place] [address] Consulting Physician Otolaryngology 08/27/22 documented as of this encounter
--- OUTSIDE RECORDS SUMMARY | 2024-10-28 06:11 | XMS_ITS | Encounter Summary ---
Author Organization [facility] Healthcare Address [address] [place] [address] Care Team Providers Care It Project Manager Name Role Phone Guero Colunga Primary Care Provider [phone] Amber Montesinos RN Unavailable [phone] Jil Duncan MD Unavailable [phone] Anita Gillespie MD Unavailable [phone] Tabitha Hurley MD Unavailable [phone] Massiel Gastelum MD Unavailable [phone] Reason for Visit * Auth/Cert Specialty Diagnoses / Procedures Referred By Contac t Referred To Contact Diagnoses Chronic pansinusitis Immunocompromised patient (HCC) Chronic pansinusitis [J32.4] Immunocompromised patient (CMS/HCC) (HCC) [D84.9] Procedures NC NASAL/SINUS ENDOSCOPY,RMV TISS MAXILL SINUS NC NASAL/SINUS NDSC TOT W/FRNT SINS EXPL TISS RMVL NC NASAL/SINUS ENDOSCOPY,SPHENOIDOTOMY NC STEREOTACTIC COMP ASSIST PROC,CRANIAL,EXTRADURAL ENDOSCOPIC SINUS SURGERY WITH NAVIGATION ENDOSCOPIC FRONTAL SINUSOTOMY FUSION NAVIGATION - BILATERAL Massiel Gastelum MD [address] [place] [address] Phone: tel: fax: Referral ID Status Reason Start Date Expiration Date Visits Re quested Visits Authorized [id number] 08/04/2022 1 1 Encounter Details Date Type Department Care Team (Late st Contact Info) Description 08/28/2022 7:30 AM CDT - 08/28/2022 11:55 AM CDT Surgery [facility] Operating Room [facility] [address] [place] [address] Massiel Gastelum MD [address] [place] [address] ENDOSCOPIC SINUS SURGERY WITH NAVIGATION Surgery Details Date/Time Status Location OR Service Patient Class Case Cl ass Case Type Trauma Case? 08/28/2022 7:30 AM Posted [facility] OR POD 4 K Otolaryngology Outpatient Elective Panel 1 Procedure LRB Anes Op Region Wound Class Comments ENDOSCOPIC SINUS SURGERY WITH NAVIGATION Bilateral General Class II - Clean Contaminated ENDOSCOPIC FRONTAL SINUSOTOMY FUSION NAVIGATION - BILATERAL Bilateral General Class II - Clean Contaminated Surgeon Surgeon Role Service Panel Massiel Gastelum MD Primary Otolaryngolog y 1 Robert Chan MD Resident - Assisting Otolaryn gology 1 Pedro Peters MD Resident - Assisting Minor P rocedures 1 Case Notes 08/04: FARHANA, email to Nisha -08/04: Reschedule to 08/28/22 POD 4 Special Needs Fusion navigation documented in this encounter Social History Tobacco [...] on file 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 Gender Identity Not on file Sexual Orientation Straight 08/22/2021 9: 23 AM CDT documented as of this encounter Last Filed Vital Signs Vital Sign Reading Time Taken Comments Blood Pressure 104/59 08/28/2022 5:55 AM CDT Pulse 66 08/28/2022 6:00 AM CDT Temperature 36.1 ??C (97 ??F) 08/28/2022 5:44 AM CDT Respiratory Rate 17 08/28/2022 6:00 AM CDT Oxygen Saturation 98% 08/28/2022 6:00 AM CDT Inhaled Oxygen Concentration - - Weight 65.8 kg (145 lb) 08/17/2022 8:35 AM CDT Height 172.7 cm (5' 8 ) 08/17/2022 8:35 AM CDT Body Mass Index 22.05 08/17/2022 8:35 AM CDT documented in this encounter Discharge Instructions * Discharge Instructions* Robert Chan MD - 08/28/2022 12:15 PM CDT Discharge Instructions -Endoscopic Sinus Surgery Please Read and Follow These Instructions for the Best Outcomes Following Your Surgery! WHAT TO EXPECT FOLLOWING SURGERY: ? Bleeding - A drip from the nose and into the back of the throat is normal for the first two days following surgery. For flowing blood (like a faucet), contact the ENT Doctor laborer construction or leak gang as noted below. ? Nasal congestion, fullness, facial pain, headache, and disrupted sleep are normal for the first week and are an expected part of the healing process. This will improve after the first debridement is performed in clinic about one week following surgery. NASAL IRRIGATIONS: ? Good post-operative irrigation on your part is essential to a successful outcome! ? Instructions: Use the Irrigation bottle/method mixed with a sterile saline solution at least three times per day (1 bottle per nostril). Use distilled, bottled or boiled water tap to make up the saline solution according to the instructions. Use 1 packet with distilled water/boiled water from the tap to make the mixture. ACTIVITY: ? Minimize your activities with only light activity for the first week following surgery. Listen toyour body! If you feel tired over the first few days, you should rest. ? No nose blowing, stooping, straining or heavy lifting > 2 bags of groceries. ? Sneeze with your mouth open. ? Sleeping with your head elevated will reduce bleeding from the nose. ? If you have been prescribed a CPAP machine, do not use until your doctor says it is safe; sleep in a recliner chair with your head elevated in the meantime. MEDICATIONS: ? Resume your home medications ? Do not take any aspirin containing products or blood thinners (Goody???s, BC Powder or Soy aspirin) until told to by your surgeon ? Do not take any intranasal medicines until told to by your surgeon ? Pain: - Mild to moderate pain: Over the counter Tylenol (Acetaminophen) as per the instructions on the bottle - Severe pain: Take your pain medicine prescription as directed:NEVER DRIVE A VEHICLE OR OPERATE HEAVY MACHINERY WHEN TAKING PRESCRIPTION PAIN MEDICINE! DRIVING: ? Do not drive within 24 hours of receiving anesthesia ? Do not drive while taking prescription pain medication DIET: ? Resume a healthy, balanced, normal diet as you feel up to it. FOLLOW-UP: - You will have important follow-up appointments starting about one week following surgery - You should take a prescription pain pill (with food) prior to the first follow up visit in preparation for a clinic debridement. - If you do not have an appointment, please call the numbers below to schedule a visit. APPOINTMENTS: ? [facility] ([facility] and [facility]) Call our office or go to the Emergency Room immediately if you have any of the following: - Any vision problems/changes - Fever over 101.4 - Neck stiffness - Heavy or prolonged bright red bleeding from the nose ? After hours: and ask for the Ear, Nose and Throat (ENT) resident laborer construction or leak gang. * Attachments The following attachments cannot be sent through Care Everywhere. * [facility] PATHWAY TO EXCELLENT CARE AFTER SURGERY documented in this encounter Medications at Time [...] day 3 documented as of this encounter Ordered Prescriptions Prescription Sig Dispense Quantity Refills Last Filled Start Date End Date oxyCODONE (ROXICODONE) 5 mg immediate release tabletIndications: Pain Take 1 tablet (5 mg total) by mouth every 4 (four) hours as needed for pain 15 tablet 08/28/2022 3 ibuprofen (ADVIL,MOTRIN) 600 mg tablet Take 1 tablet (600 mg total) by mouth every 6 (six) hours as needed for pain 30 tablet 1 08/28/2022 3 acetaminophen (TYLENOL) 500 mg tablet Take 2 tablets (1,000 mg total) by mouth every 6 (six) hours as needed for pain 30 tablet 1 08/28/2022 3 documented in this encounter Discharge Disposition Disposition Code Departure Means Destination Discharge to home or self care documented in this encounter H&P Notes * Robert Chan MD - 08/28/2022 6:52 AM CDT I have reviewed the H&P, examined the patient, and endorse the findings as written. Plan of Care : Based on the above findings, I consider Adi Nichols to be an acceptable risk for : Procedure(s): ENDOSCOPIC SINUS SURGERY WITH NAVIGATION ENDOSCOPIC FRONTAL SINUSOTOMY FUSION NAVIGATION - BILATERAL Cosigned by Massiel Gastelum MD at 08/28/2022 7:05 AM CDT Source Note - Nisha Vargas UNIT MANAGER - 08/18/2022 11:06 AM CDT Images from the original note were not included. [facility] for Preoperative Assessment and Planning Preoperative Evaluation Record Evaluation type/location: TPAP from [facility] Planned procedure site: [facility] OR (Pod 4) Date: 08/18/22 NOTE: This note represents a preoperative evaluation initiated via telephone interview. NO PHYSICALEXAM was performed at the time of initial assessment. A physical exam may be added to this note anddocumented below. Anesthesia Evaluation Adi Nichols is a 27 y.o. male Procedure(s): ENDOSCOPIC SINUS SURGERY WITH NAVIGATION ENDOSCOPIC FRONTAL SINUSOTOMY FUSION NAVIGATION - BILATERAL Pre-Op Diagnosis Codes: * Chronic pansinusitis [J32.4] * Immunocompromised patient (CMS/HCC) (HCC) [D84.9] HISTORY HPI 27 y.o. male with PANSINUSITIS. PMH: h/o liver transplant, PTLD, CVID, and CMV viremia. Immunocompromised Pt being planned for ENDOSCOPIC SINUS SURGERY WITH NAVIGATION (Bilateral) ?ENDOSCOPIC FRONTAL SINUSOTOMY FUSION NAVIGATION - BILATERAL (Bilateral) Anesthesia type: General Past Medical History Neurological Pertinent negatives: seizures; neuromuscular disease and CVA/stroke Neuro/Psych system: negative Cardiovascular Cardiac system: negative Respiratory + Current smoker (Uses chewing tobacco) - Counseled to abstain from smoking the day of surgery. Pertinent negatives: COPD; asthma; sleep apnea (WINTER); pulmonary hypertension and no O2 use outside the hospital Hepatic / Heme + Liver disease (2012 Autoimmune Hepatitis) - other. Pertinent negatives: history of anemia; history of thrombocytopenia and history of Carol positive Comments: 2012, autoimmune hepatitis (Non A, Non B) s/p orthotopic liver transplant 03/30/2009, c/bPTLD (c-Myc, EBV +) s/p R-CHOP x 1 (2016), DA-EPOCH-R x 5 (09/2017-12/2017) with IT MTX w/ C3 10/2017, achieving CR in 12/2017, persistent quantifiable CMV viremia since 06/2019. History of refractory ITP s/p splenectomy 2012. 08/18/2022 Plt [id number] Gastrointestinal GI system: negative Renal / Renal/ system: negative Musculoskeletal/Pain Pertinent negatives: chronic pain Musculoskeletal/Pain system: negative Endocrine / Other + Cancer history- in remission and s/p chemo. Cancer type: 2018 Non-Hodgkins Lymphoma S/p chemotherapy x6 months. 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 Has F/u with [facility] Liver Transplant Team.) - liver. Pertinent negatives: diabetes mellitus; thyroid disease; obesity (BMI >30) and rheumatological disease Comments: + Immunocompromised Functional Capacity Functional capacity: 4-6 METs Comments: Walks 1 mile and climb 1 flight of stairs--no CP or SOB. Tolerates HOB flat. Review of Systems + previous transfusion (2017--no adverse reaction reported) + chipped/loose teeth (Chipped lower front tooth) Pertinent negatives: productive cough; wheezing; SOB; recent cold/flu; fever; chest pain; palpitations; orthopnea; pedal edema; PND; Sickle Cell disease/trait; transfusion reaction; melena/hematochezia; easy bruising; bleeding problems; syncope; dizziness; muscle weakness; chronic pain; numbness/tingling; hard of hearing; vision loss; heartburn; nausea; dysphagia; diarrhea; dentures/partials; abdominal pain; diaphoresis and no unexpected weight change PAT Summary and Plans Cardiac risk classification of planned procedure: low cardiac risk. Preoperative assessment status: complete. Additional comments: Adi Nichols is a 27 y.o. male who is being evaluated prior to undergoing a low cardiac risk surgery. Revised Cardiac Risk Index factors are (none) for a total RCRI of 0 out of6. Functional capacity is 4-6 METs. Obstructive sleep apnea (WINTER) screening status is STOP-Bang=1 suggesting low risk for WINTER Blood bank needs for day of procedure: No type and screen needed Pending labs/tests as per Surgeon. This assessment was performed via telephone. Therefore the physical exam has been deferred to the day of surgery team. The patient was provided with preoperative instructions for their medications. Patient instructions were provided by telephone and electronically sent via [employer]. Patient verbalized understanding of preoperative plan. Patient's COVID19 status is: Unexposed. The patient currently has no concerning symptoms of COVID19. . Patient's COVID-19 vaccination status is Up to date with 1 J&J vaccine & 1 mRNA vaccine.Documentation of vaccination status is available in the Doc[employer] Immunization tab. . Plan for pre-procedure COVID19 testing: Patient is asymptomatic and up to date with their COVID-19 vaccine. COVID-19 testing not indicated. . TPAP Process Complete Preoperative evaluation performed by Nisha Vargas NP on 08/18/22 at 11:32 AM. . Patient Active Problem List Diagnosis ??? Cytomegalovirus infection (HCC) ??? History of liver transplant (CMS/HCC) (HCC) ??? Idiopathic thrombocytopenic purpura (HCC) ??? 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 Autoimmune hepatitis (CMS/HCC) (HCC) ??? Hypogammaglobulinemia (CMS/HCC) (HCC) ??? 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 Immunocompromised patient (CMS/HCC) (HCC) ??? Community acquired pneumonia ??? Lymphadenopathy ??? group home current use of immunosuppressive drug ??? 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HCC) ??? Fever ??? Elevated LFTs ??? On antiviral therapy ??? Myalgia ??? Muscle weakness ??? Chronic pansinusitis ??? Immunocompromised (CMS/HCC) (HCC) ??? PTLD (post-transplant lymphoproliferative disorder) (HCC) ??? Subcutaneous nodule of right lower extremity Past Medical History: Diagnosis Date ??? Cancer [...] 05/22/2014 ??? EXCHANGE PICC LINE Left 12/24/2021 ? ? IR PICC LINE PLACEMENT > [...] LIVER N/A 05/14/2020 ??? US GUIDED BIOPSY LYMPH NODE SUPERFICIAL LEFT N/A 10/13/2019 ??? US GUIDED BIOPSY LYMPH NODE SUPERFICIAL LEFT N/A 10/07/2021 No Known Allergies Med List Status: Nurse Complete Set By: Dang Carrasco RN at 08/17/2022 8:36 AM Taking? Last Dose Start Date End Date Provider amoxicillin-clavulanate (Augmentin) 875-125 mg per tablet 08/17/2022 08/05/22 08/26/22 Massiel Gastelum MD Take 1 tablet by mouth 2 (two) times a day for 21 days budesonide (Pulmicort) 0.5 mg/2 mL nebulizer solution () Not Taking 02/18/22 05/19/22 Massiel Gastelum MD Administer 2 mL (0.5 mg total) into each nostril daily Mix 4ml into 240ml nasal saline and perform nasal rinse Patient not taking: Reported on 08/17/2022 tacrolimus (PROGRAF) 0.5 mg immediate-release capsule 08/16/2022 05/25/22 -- Theodore Gresham MD Take 1 capsule (0.5 mg total) by mouth every other day Patient taking differently: Take 0.5 mg by mouth every other day Notes: Transplant: 03/03/1999 (Liver) Discharge: ICD10: Z94.4 Transplant: [facility] ([place], [place]) traZODone (DESYREL) 50 mg tablet () -- 03/05/22 08/17/22 Anita Gillespie MD Take 1 tablet (50 mg total) by mouth nightly Patient taking differently: Take 50 mg by mouth nightly as needed ursodioL (ACTIGALL) 300 mg capsule 08/16/2022 10/02/21 -- Theodore Gresham MD Take 2 capsules (600 mg total) by mouth daily with dinner valGANciclovir (VALCYTE) 450 mg tablet 08/17/2022 -- -- ProviderDl MD Ongoing Comment Juanita Martin RN 01/24/2022 8:57 AM 02/18/20NO INTERACTIONS FOR ADMISSION-WIN CASH No interactilns 03/12/2020 Rosemarie RN No interactions noted. 03/15/2020 Rosemarie RN No med interactions 03/25/2020 No severe interactions noted 12/20/2021 JSC RN 12/27/21 No severe interaction noted upon review Lesvia Conde GARMENT MENDER 01/24/2022 No severe interactions or contraindications noted. JSC RN No current facility-administered medications for this encounter. Current Outpatient Medications: ??? amoxicillin-clavulanate (Augmentin) 875-125 mg per tablet ??? tacrolimus (PROGRAF) 0.5 mg immediate-release capsule ??? traZODone (DESYREL) 50 mg tablet ??? ursodioL (ACTIGALL) 300 mg capsule ??? valGANciclovir (VALCYTE) 450 mg tablet ??? budesonide (Pulmicort) 0.5 mg/2 mL nebulizer solution Social History Tobacco Use Smoking Status Never Smokeless Tobacco Current ??? Types: Chew Alcohol Use: Not At Risk ??? Frequency of Alcohol Consumption: 2-4 times a month ??? Average Number of Drinks: 1 or 2 ??? Frequency of Binge Drinking: Never Substance and Sexual Activity Drug Use Not Currently Family History Problem Relation Age of Onset ??? Rectal cancer Mother Rectal cancer - (Added by TW Conv) ??? Diabetes type II Sister Family history of type 2 diabetes mellitus - (Added by TW Conv) ??? Anesthesia problems Other ??? No Known Problems Father There were no vitals filed for this visit. Relevant diagnostics: ECG(s)12/21/2021: Rate: ?ECG rate: ??82 ?ECG rate assessment: normal ?? Rhythm: ?Rhythm: sinus rhythm ?? Ectopy: ?Ectopy: none ?? QRS: ?QRS axis: ??Normal ?QRS intervals: ??Normal Conduction: ?Conduction: normal ?? ST segments: ?ST segments: ??Normal T waves: ?T waves: inverted ?Inverted: ??V1, V2 and V3 Previous ECG: ?Previous ECG: ??Unavailable Interpretation: ?Interpretation: non-specific ?? Echocardiogram(s): N/A Stress test(s): N/A Cardiac catheterization(s): N/A PFT(s): N/A Vascular studies: 07/10/2022 Right Lower Extremity: IMPRESSION: IMPRESSION: 1. Findings consistent with cellulitis at the lump at the anterior right thigh. 2. No drainable fluid collection. 3. No sonographically evident retained foreign body. ?? Other: 07/09/2022 CT Sinus WO Contrast: IMPRESSION: ??1. Mucosal thickening has progressed within the sphenoid sinuses and right maxillary sinus and improved within the frontal sinuses and ethmoid air cells. No noncontrast CT evidence of complication. ?? 07/09/2022 CT Chest W Contrast: IMPRESSION: ??1. Consolidation and adjacent subcentimeter nodules in the right middle lobe, partially imaged on CT dated 07/05/2022 and likely representing pneumonia. Follow-up to resolution is recommended. ?? 2. No significant interval change in extensive thoracic lymphadenopathy as described compared to CT dated 10/01/2021. ?? PT: No results found for requested labs within last 720 hours. INR: No results found for requested labs within last 720 hours. APTT: No results found for requested labs within last 720 hours. Hgb A1C: No results found for requested labs within last 720 hours. CBC RBC: No results found for requested labs within last 720 hours. RDW: No results found for requested labs within last 720 hours. MCHC: No results found for requested labs within last 720 hours. MCH: No results found for requested labs within last 720 hours. MCV: No results found for requested labs within last 720 hours. Hct: No results found for requested labs within last 720 hours. Hgb: No results found for requested labs within last 720 hours. WBC: No results found for requested labs within last 720 hours. MPV: No results found for requested labs within last 720 hours. Platelets: No results found for requested labs within last 720 hours. RDW CV: No results found for requested labs within last 720 hours. RDW Sd: No results found for requested labs within last 720 hours. BMP Glucose: No results found for requested labs within last 720 hours. Calcium: No results found for requested labs within last 720 hours. Sodium: No results found for requested labs within last 720 hours. Potassium: No results found for requested labs within last 720 hours. CO2: No results found for requested labs within last 720 hours. Chloride: No results found for requested labs within last 720 hours. BUN: No results found for requested labs within last 720 hours. Creatinine: 08/08/2022: 0.82 mg/dl Arti index score: 100 documented in this encounter Miscellaneous Notes * Op Note - Massiel Gastelum MD - 08/28/2022 7:48 AM CDT OTOLARYNGOLOGY OPERATIVE NOTE NAME: Adi Nichols DATE OF : 1995 DATE OF SURGERY: 08/28/2022 SURGEON: Massiel Gastelum MD SURGICAL TEAM: Surgeon(s) and Role: * Massiel Gastelum MD - Primary * Robert Chan MD - Resident - Assisting * Pedro Peters MD - Resident - Assisting PREOPERATIVE DIAGNOSIS: Pre-op Diagnosis * Chronic pansinusitis [J32.4] * Immunocompromised patient (CMS/HCC) (HCC) [D84.9] POSTOPERATIVE DIAGNOSIS: Post-op Diagnosis * Chronic pansinusitis [J32.4] * Immunocompromised patient (CMS/HCC) (HCC) [D84.9] PROCEDURE: ENDOSCOPIC SINUS SURGERY WITH NAVIGATION (B), ENDOSCOPIC FRONTAL SINUSOTOMY FUSION NAVIGATION - BILATERAL (B) Bilateral maxillary antrostomy. Bilateral frontoethmoidal sinusotomy. Bilateral sphenoidotomy. Septoplasty. Image guidance navigation. ANESTHESIA: Anesthesiologist: Laurent Beckford MD Anesthesia type: General INDICATION FOR PROCEDURE: Adi Nichols is a 27 y.o. male with history of liver transplant, PTLD, CVID, and CMV viremia withchronic sinusitis with recurrent acute exacerbations. He has been managed on topical nasal medication and multiple long courses of antibiotics. After detailed discussion with the patient, he presents for bilateral endoscopic sinus surgery. FINDINGS: Multiple sinus variations including bilateral Onodi cells, left Rhianna cell, and bilateral Patrick type 1 cells. Nasal septal deviation at the bony cartilaginous junction narrowing the left nasal cavity. Notable improvement in access to the left middle meatus after septoplasty. Left middle turbinate floppy withmanipulation and removed. Right middle turbinate maintained and medialized. Mucosa edematous bilaterally. No pus. Friable mucosa throughout. OPERATIVE REPORT: Adi Nichols was brought into the operating room and placed supine on the operating table. General anesthesia was induced and the patient was orotracheally intubated by anesthesia staff without difficulty. A complete time out was performed before commencement of the surgical procedure. Patient was rotated 180?? from anesthesia. Image guidance navigation was connected and calibrated to excellent accuracy. He was positioned and draped in the usual manner. The 0 degree nasal endoscopewas used to examine the right and left nasal cavities. The remainder of the procedure was performedwith either the 0 or 30 degree nasal endoscope. Throughout the dissection, the image guidance navigation on the straight suction, curved suction, and ostium seeker were used. The left nasal cavity was notably narrow with a prominence at the bony cartilaginous junction of the septum. The right side was 1st addressed. The middle turbinate was medialized and the uncinate was identified. The uncinatewas then resected with the backbiter after being lateralized with the ball probe. The maxillary antrostomy was identified, somewhat medial. The bone along the inferior edge was firm and able to be reflected out to widen the antrostomy. The antrostomy was then opened posteriorly sharply. A bone remnant, possible poorly formed Rhianna cell, was noted along the superior aspect and dissected. The micro debrider was used to widen the antrostomy further. The mucosa of the maxillary sinus appeared edematous, no pus or purulence was identified. The ethmoid bulla was then entered with the J curette andthe retro bulla recess and the anterior ethmoids were dissected. The basal lamella was entered posteriorly and the ethmoids were followed, widening the space to the posterior lateral ethmoid cell. The superior turbinate was identified the inferior portion was resected. The noticed cell was identified and widened. The sphenoidotomy was identified and carefully widened with the Kerrison and mushroom punch. A slight bridge between the noted and the sphenoidotomy was divided sharply. The skull basewas identified posteriorly and followed anteriorly, carefully dividing air cells at the skull base.The air cells along the lateral wall were then also carefully dissected. The anterior skull base was carefully dissected, utilizing the image guidance navigation. The Patrick cell was identified and theinferior and posterior aspects were carefully dissected. The dissection connected the Patrick cell to the skull base posteriorly and the frontal sinus tract was identified. The posterior edge of the Patrick cell was then dissected down and the ostium seeker passed into the frontal sinus. Small air cell remnants were then carefully dissected. Afrin pledget was placed on the right side. Attention was then turned to the left. The left nasal cavity was notably narrow with difficult access to the middle turbinate and middle meatus. Decision was made to proceed with septoplasty to improve access. The septum was injected with Marcaine with epinephrine. A left hemitransfixion incision was made and the left mucoperichondrium was elevated. The endoscope was utilized to visualize the bony cartilaginous junction and the periosteum was then elevated off of the deviated segment. The bony cartilaginous junction was disarticulated and the deviated bone was dissected with the open Baldwin Calderon forceps. The cartilage was not dissected or removed. There was notable improvement in the de viation and narrowing of the left nasal cavity after removal of the anterior edge of the bone. The middle turbinate was medialized. The middle turbinate was noted to be relatively floppy. The uncinate was medialized and dissected with the backbiter. The maxillary antrostomy was identified withthe curved ball probe and widened with the backbiter and Yeison-Cut forceps. Similar to the right side, the antrostomy was relatively lateral and the inferior aspect was relatively dense. This was sharply dissected and the rad 40 microdebrider was used to help improve the inferior and posterior aspects. The ethmoid bulla was entered through the retro bulla recess with the J curette and the ethmoid bulla was dissected. The Rhianna cell was then identified and the inferior aspects of this were dissected from the antrostomy, widening the space nicely. The decision was made to resect the left middle turbinate to improve access and avoid lateralization postoperatively. The turbinate was then incisedsharply adjacent to the base extending to the root. The root of the middle turbinate was cauterizedwith the suction cautery. The ethmoid dissection was followed posteriorly and the superior turbinate was identified. The Onodi cell on the left was superior to the sphenoid. The synovial cell was identified superior to the middle turbinate. The opening was carefully widened, confirming location with the image guidance. Medial to the superior turbinate, the sphenoidotomy was identified. This was wi dened with the Kerrison and mushroom punch. A small portion of bone was carefully divided between the sphenoid and onodi cell. The posterior lateral ethmoid cell was identified and the skull base wasthen followed from posterior to anterior. The lateral wall was dissected carefully with the J curette. The Patrick cell was dissected along the posterior and inferior aspect and the frontal sinus was entered with the curved suction. Location was also confirmed with the ostium seeker. The thin residual bones and mucosa was carefully cleaned from the skull base and lateral wall. Afrin pledgets were applied on the left. The left hemitransection incision was closed with running chromic suture. Both right and left nasalcavities were re-examined and irrigated with copious saline. A few remnants of loose mucosa was cleaned from the right and left sides with the micro debrider. Hemaderm was applied to right and left nasal cavities. Posisep C was applied to the right side, with care to medialized the middle turbinate. Stomach and esophageal contents were suctioned clear with an orogastric tube. The patient was returned to anesthesia and awakened without difficulty. he was extubated and transferred to the PACU. Condition on Discharge from the operating room was stable. TEACHING ATTESTATION : I was present and directly participated in the entire procedure (including opening and closing).. IMPLANTS: Nothing was implanted during the procedure ESTIMATED BLOOD LOSS: 50 mL SPECIMENS: Order Name Source Comment Collection Info Order Time SURGICAL PATHOLOGY Sinus contents Collected By: Massiel Gastelum MD 08/28/2022 11:40 AM COMPLICATIONS: None. Massiel Gastelum MD Date: 08/28/2022 Time: 12:09 PM * Pre-Procedure Instructions - Nisha Vargas NP - 08/18/2022 11:12 AM CDT [facility] Clinic Location: [facility] The night before your surgery: * Do not eat anything after midnight the night before your procedure. The morning of your surgery: * You may have clear liquids on your surgery day. You must stop drinking two hours before you arrive to the surgery facility. Acceptable clear liquids include water, clear sports drinks, black coffee, or clear soda. DO NOT drink any milk, creamer, or alcohol. * Your surgeon's office may have provided additional instructions or restrictions. Please follow those instructions. * You may brush your teeth and rinse your mouth out. * Do not wear jewelry, body piercings, makeup, hairpins, false eyelashes or contact lenses to the hospital. * Leave any valuables at home or with your family. * If having surgery at [facility], you may want to bring a credit card if you want to use our Mobile Pharmacy for your discharge medications. Mobile pharmacy is not available at [facility], the [facility], or the [place] [facility]. Outpatient Surgery: * You must have [...] For Your Medications: Pre-Surgery Instructions: Medication Instructions amoxicillin-clavulanate (Augmentin) 875-125 mg per tablet Take morning of surgery if still taking. tacrolimus (PROGRAF) 0.5 mg immediate-release capsule Take morning of surgery traZODone (DESYREL) 50 mg tablet Don't take on day of surgery ursodioL (ACTIGALL) 300 mg capsule Don't take on day of surgery valGANciclovir (VALCYTE) 450 mg tablet Take morning of surgery budesonide (Pulmicort) 0.5 mg/2 mL nebulizer solution Take on day of surgery if needed General Instructions For Medications: * Stop all [...] E, Herbal medicines, Diet Pills If you have pain, you may take [...] with COVID-19. You test positive for COVID-19. * Perioperative Nursing Note - Dang Carrasco RN - 08/17/2022 8:51 AM CDT [facility] for Preoperative Assessment and Planning Perioperative Nursing Note Telephone Preoperative Evaluation ([facility]) - TELEPHONE ONLY, NO PHYSICAL EXAM Date: 08/17/22 Vitals: 08/17/22 0835 Weight: 65.8 kg (145 lb) Height: 172.7 cm (5' 8 ) CHEST CIRCUMFERENCE: n/a Social History Tobacco Use Smoking Status Never Smokeless Tobacco Current Types: Chew Substance and Sexual Activity Drug Use Not Currently Alcohol Use Q1: How often do you have a drink containing alcohol?: 2-4 times a month Q2: How many drinks containing alcohol do you have on a typical day when you are drinking?: 1 or 2 Q3: How often do you have six or more drinks on one occasion?: Never Outpatient Medications Marked as Taking for the 08/28/22 encounter (Hospital Encounter) Medication Sig Dispense Refill amoxicillin-clavulanate (Augmentin) 875-125 mg per tablet Take 1 tablet by mouth 2 (two) times a day for 21 days 42 tablet 0 tacrolimus (PROGRAF) 0.5 mg immediate-release capsule Take 1 capsule (0.5 mg total) by mouth every other day (Patient taking differently: Take 0.5 mg by mouth every other day) traZODone (DESYREL) 50 mg tablet Take 1 tablet (50 mg total) by mouth nightly (Patient taking differently: Take 50 mg by mouth nightly as needed) 30 tablet 2 ursodioL (ACTIGALL) 300 mg capsule Take 2 capsules (600 mg total) by mouth daily with dinner 180 capsule 3 valGANciclovir (VALCYTE) 450 mg tablet Take 900 mg by mouth 2 (two) times a day Implants No active implants to display in this view. 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 No Have you had a COVID -19 exposure within the past 14 days? No Were both or all people exposed wearing masks (cloth, isolation, surgical or N95)? N/A TESTING PLAN-See Instructions for plan We recommend you Self-Isolate after COVID Testing: Stay at home, if possible until your surgery date. Maintain a 6 foot distance from other people (social distancing). Avoid touching your eyes, nose and mouth with unwashed hands. Wash your hands often with soap and water for at least 20 seconds. Use an alcohol- based hand dry wall applicator that contains at least 60% alcohol if soap and water are not available. ADDITIONAL COMMENTS/ FOLLOW UP * Pre-Procedure Instructions - Dang Carrasco RN - 08/17/2022 8:44 AM CDT [facility] PREOPERAT[facility] ASSESSMENT [facility]ANNING ([facility]) PRE-SURGICAL NURSING INSTRUCTIONS Telephone Assessment General Information Discussed with Patient: Surgery location provided to patient. Arrival time and surgical time will be provided to the patient by their surgeon. You should wear clothing that is clean, loose, comfortable and easy to get in and out of on the dayof surgery. You should leave your valuables and any jewelry at home. No metal or piercings are allowed in the operating room. You should bring your insurance card, a photo ID (example: Food And Nutrition Professor's License) and a method of payment for any insurance copay, deductible or copay for discharge medications. You should bring a complete, up-to-date list of all your medications on the day of surgery, including any over the counter medications or supplements you may take. You should bring your Advanced Directive and/or Living Will with you on the day of surgery if you have not verified a copy is already in your Epic Chart. If you are having surgery at [facility], please arrive on the day of [...] Pathway to Excellent [facility] by the followinglink: [email or web address] How To Prepare Your Skin For Surgery Below is the Pre-Surgical Bathing Protocol you should follow for your surgery. If your surgeon provides you different bathing instructions, please follow your surgeon's orders. 2 Day CHG Bathing Protocol (no nasal ointment) PREVENTING INFECTION (DECOLONIZATION): Decolonization is the use of a topical antiseptic soap and sometimes a nasal ointment to remove bacteria (germs) from the skin's surface. Antiseptic soap: Chlorhexidine gluconate or CHG (brand name: Hibiclens??) Before surgery, your entire body must be thoroughly cleaned. CHG helps to reduce the bacteria on your skin. You may be given one or more bottles of CHG or you may be asked to obtain from your preferred pharmacy. Be sure to ask your pharmacist if you need help finding this product. Nasal ointment: Mupirocin (brand name: Bactroban) Your surgeon may also prescribe a topical ointment that is rubbed inside each of the nostrils to reduce the bacteria in your nose. Mupirocin ointment requires a prescription. If needed, it will be prescribed by your surgeon and obtained from your preferred pharmacy. SHOWERING WITH ANTISEPTIC SOAP (CHG) What You Need For Each Shower 60 mL (?? cup) of CHG 2 clean washcloths CHG Bathing Instructions First, shampoo and rinse your hair with your own shampoo (no conditioners). Do this so the antiseptic soap isn't washed off by your shampoo. Wash face with warm water. Turn off shower and stand away from the water. Use 2 clean washcloths to apply the antiseptic soap to all areas as described below: Pour 30 mL (1/8 cup) of CHG on washcloth #1: Using washcloth- start at jawline and firmly massage the soap into the skin in a circular motion to clean neck, shoulders, chest, back, both armpits, arms, hands and abdomen. Finish with legs and feet. Pour 30 mL (1/8 cup) of CHG on washcloth #2: Using washcloth- firmly massage the soap into the skinin a circular motion to clean groin area, perineum and buttocks. (Do not use CHG on genital area.) Shah Points: The CHG antiseptic soap will not bubble or lather very much. If you get soap in your eyes, ears or mouth, rinse well with cool water. When finished, leave the soap on your skin for 2 minutes before rinsing. Dry off with a clean fresh towel. Wear clean clothes or pajamas to sleep in. After showering DO NOT put on deodorant, hair products or conditioners, lotions or creams, powders,Vaseline or any non-essential products. If you cannot reach the surgical site, such as the back, please have someone help you. Shaving: You may shave your face, legs and underarms during your evening shower before you apply the CHG antiseptic soap. Be careful not to cut or ania your skin. Avoid shaving on the day of surgery. Deodorant: Patients following the 5-Day CHG protocol may apply deodorant on the days leading up to surgery, being sure, however, to avoid use on the evening before and day of surgery. All other products should be avoided for the full 5 days. 2-Day CHG Bathing Protocol The Evening Before Surgery: Take a shower with Antiseptic soap (CHG). Follow the steps for ???Showering with Antiseptic Soap (CHG)?? above. Change all linens on your bed so you are sleeping in clean fresh sheets and pillowcases. Remove nail coverings, artificial nails and nail kazakh. The Morning of Surgery: Take a shower with Antiseptic soap (CHG). Follow the steps for ???Showering with Antiseptic Soap (CHG)?? above. Put clean clothes on after you shower. COVID TESTING PLAN (if applicable): Please note, the below is the Pre-Procedure COVID Testing Plan (if applicable) for the Center for Preoperative Assessment & Planning for Anesthesia. Surgeon's offices may require additional testing. If so, the surgeon's office will reach out to the patient to discuss further testing. Patient's COVID-19 vaccination status: Up to date with 1 J&J vaccine & 1 mRNA vaccine. Vaccination status verbally confirmed with patient. COVID Test Plan: COVID Test not indicated related to patient is up to date on COVID 19 vaccine(s) and booster, if eligible.. We recommend you Self-Isolate after COVID Testing: Stay at home, if possible, until your surgery date. Maintain a 6 foot distance from other people (social distancing). Avoid touching your eyes, noseand mouth with unwashed hands. Wash your hands often with soap and water for at least 20 seconds. Use an alcohol- based hand dry wall applicator that contains at least 60% alcohol if soap and water are not available. These are general guidelines, but if have been told by a physician that you should not perform any of the above, please follow physician's guidelines. If you have questions, please call the CPAP Staff at [phone], Wednesday-Wednesday 8am-4:30pm. All patients should read the below section: All visitors/patients are being asked to wear a clean face mask when entering the hospital. COVID 19 Updates & Visitor Policy: Please access [email or web address] for the most updated information. Information on [facility]: Please view [email or web address] (Patient & Visitor Information) for additional details regarding Advanced Directive forms, AWARE, directions, parking information, lodging, Internet access, dining and more. Information on [facility] or [facility] [place] ([facility]): Please view [email or web address] (Patient and Visitor Information) for parking/directions and more. For MyChart information, to activate account or password recovery, please go to [email or web address] or call [phone] (toll-free: [phone]). Information for Suicide Prevention: National Suicide Prevention Lifeline (5-175- 670-ZUHE (2341)). Surgery Times: For patients having surgery @ [facility], [facility] or [facility] [place] ([facility]), if your surgeon's office has not notified you of your surgery time by NOON THE BUSINESS DAY BEFORE your surgery, please call [phone] and ask for your surgeon's office Dr Gastelum. documented in this encounter Plan of Treatment Scheduled Procedures Name Priority Associated Diagnoses Date/Ti me COLONOSCOPY Encounter for screening for colorectal cancer in high risk patient Family history of rectal cancer documented as of this encounter Procedures Procedure Name Priority Date/Time Associated Diagnosis Comments SURGICAL PATHOLOGY Routine 08/28/2022 11 :40 AM CDT Chronic pansinusitis Immunocompromised patient (CMS/HCC) (HCC) ENDOSCOPIC FRONTAL SINUSOTOMY FUSION NAVIGATION - BILATERAL 08/28/2022 7:25 AM CDT Chronic pansinusitis Immunocompromised patient (CMS/HCC) (HCC) Case Notes 08/04: FARHANA, email to Nisha MARTINEZ08/04: Reschedule to 08/28/22 POD 4 Special Needs Fusion navigation ENDOSCOPIC SINUS SURGERY WITH NAVIGATION 08/28/2022 7:25 AM CDT Chronic pansinusitis Immunocompromised patient (CMS/HCC) (HCC) Case Notes 08/04: DPC, email to Nisha MARTINEZ08/04: Reschedule to 08/28/22 POD 4 Special Needs Fusion navigation documented in this encounter Results * Surgical pathology (08/28/2022 11:40 AM CDT) Tissue (Sinus contents) 08/28/2022 11:40 AM CDT Narrative PATHOLOGY [facility] - 09/03/2022 11:28 AM CDT EPIC results best viewed via link to PDF [facility] [place] [address] Note to Patients: This report may contain [...] SURGICAL PATHOLOGY REPORT FINAL Patient Name: ?? ADI NICHOLS Gender: ??M : ??1995 (Age: 27) Address: ??[address] [place], [place] ??[address] Hospital #: ??[id number] Taken:08/28/2022 Received:08/28/2022 Reported: 09/03/2022 Patient Type: [facility] SDS ?? Service: Surgery Location: Physician(s): ??Massiel Gastelum M.D. Jamil Romero MD Ricardo J. Ramirez, M.D. Diagnosis: A. ??Paranasal sinuses, bilateral, extraction ? - Chronic inflammation dxs/09/03/2022 10:24 By this signature, I attest that the above diagnosis is based upon my personal examination of the slides(and/or other material indicated in the diagnosis). Adriane Cueva M.D. Report Electronically Reviewed and Signed Out By ??Adriane Cueva M.D. 09/03/2022 11:28:33 Microscopic Description and Comment: Microscopic examination substantiates the above cited diagnosis. ?? Jez Mark M.D. History: The patient is a 27-year-old man with chronic pansinusitis in an immunocompromised patient. Operative procedure: ??Endoscopic frontal sinus sinusotomy. Specimen(s) Received: A: Sinus contents bilateral Gross Description: Received in formalin labeled with patient identifiers and sinus contents- bilateral is a 4.5 x 2.0 x 1.5 cm aggregate soft preston-brown tissue with intermixed blood clot and bony fragments. ??Vocational Examiner sections are submitted. ??Labeled A1. ??decal 1. Jar 1. ?? rxr/08/28/2022 16:34 PA(s): Fiorella Bravo By this signature, I attest that the above diagnosis is based upon my personal examination of the slides(and/or other material). Addenda/Procedures The performance characteristics of some immunohistochemical stains, fluorescence in-situ hybridization tests and immunophenotyping by flow cytometry cited in this report (if any) were determined by the Surgical Pathology and Flow Cytometry Departments at [facility] as part of an ongoing quality lab assoc program and in compliance with federally mandated regulations drawn from the Clinical Laboratory Improvement Act of 1988 (CLIA '). ??Some of these tests rely on the [...] Surgical Pathology and Flow Cytometry Departments of [facility]. ??It has not been cleared or approved by the U. S. Food and Drug Administration. IMAGES AND SCANNED DOCUMENTS, IF INCLUDED, ONLY VIEWABLE IN PDF VERSION OF REPORT Massiel Gastelum MD LAB PATHOLOGY ORDERABL ES Final Result PATHOLOGY [facility] [address] Floor [place], [place] [phone] documented in this encounter Visit Diagnoses Diagnosis Chronic pansinusitis Other chronic sinusitis Immunocompromised patient (HCC) Chronic pansinusitis Other chronic sinusitis Immunocompromised patient (HCC) documented in this encounter Admitting Diagnoses Diagnosis Chronic pansinusitis Other chronic sinusitis Immunocompromised patient (HCC) documented in this encounter Administered Medications Inactive Administered Medications - up to 3 most recent administrations Medication Order MAR Action Action Date Dose Rate Site bupivacaine-EPINEPHrine (MARCAINE with EPI) 0.5 %-1:200,000 preservative free injection As needed, Starting on Wed08/28/22 at 1142, Intra-Op Given 08/28/2022 11:42 AM CDT 1 mL Surgical Site Lactated Ringer's (LR) infusion 30 mL/hr, intravenous, Continuous, Starting on Wed08/28/22 at 0615 Restarted 08/28/2022 11:16 AM CDT New Bag 08/28/2022 7:24 AM CDT 30 mL/hr oxymetazoline (AFRIN) 0.05 % nasal spray As needed, Starting on Wed08/28/22 at 0801, Intra-Op Given 08/28/2022 8:01 AM CDT 2 application (deactivated) Surgical Site sodium chloride 0.9% irrigation As needed, Starting on Wed08/28/22 at 0802, Intra-Op Given 08/28/2022 8:02 AM CDT 2,000 mL Surgical Site sodium chloride 0.9% irrigation As needed, Starting on Wed08/28/22 at 0802, Intra-Op Given 08/28/2022 8:02 AM CDT 1,000 mL Surgical Site documented in this encounter Active and Recently Administered Medications Times are shown in CDT. Continuous Medication Order 08/26/2022 08/27/2022 08/28/2022 Lactated Ringer's (LR) infusion 30 mL/hr, intravenous, Continuous, Starting on Wed08/28/22 at 0615 0538 (Due)0724 (New Bag - Provider: Philip Lutz CRNA)1115 (Paused - Provider: Philip Lutz CRNA - Comment: Switch to gravity)1116 (Restarted - Provider: Philip Lutz CRNA)1228 (Stopped - Provider: Delia Galvan RN) PRN Medication Order 08/26/2022 08/27/2022 08/28/2022 bupivacaine-EPINEPHrine (MARCAINE with EPI) 0.5 %-1:200,000 preservative free injection (CANCELED) As needed, Starting on Wed08/28/22 at 1142, Intra-Op 1142 (Given - Provid er: Massiel Gastelum MD) fentaNYL (SUBLIMAZE) preservative free injection 50 mcg 50 mcg, intravenous, Once as needed, breakthrough pain, Starting on Wed08/28/22 at 1225, For 1 dose, Phase I, Administer for uncontrolled or increasing pain while in PACU only. Then proceed to PACU 1st line analgesic., Indications: Pain HYDROmorphone (DILAUDID) injection 0.2 mg 0.2 mg, intravenous, Administer over 2 Minutes, Every 10 min PRN, 1st line for pain, Starting on Wed08/28/22 at 1225, Phase I, Switch to 2nd line analgesic order if pain is uncontrolled or increasing after 2 doses. Notify Anesthesiologist if total PACU dose reaches 2 mg and pain score 5/10 or more., Indications: Pain HYDROmorphone (DILAUDID) injection 0.4 mg 0.4 mg, intravenous, Administer over 2 Minutes, Every 10 min PRN, 2nd line for pain, Starting on Wed08/28/22 at 1225, Phase I, May administer 10 mintes after 2nd dose of 1st line analgesic agent for uncontrolled or increasing pain. Revert to 1st line dose if POSS of 3. Notify Anesthesiologist if total PACU dose reaches 2 mg and pain score 5/10 or more., Indications: Pain naloxone (NARCAN) 0.4 mg/mL injection 0.04-0.4 mg 0.04-0.4 mg, intravenous, Once as needed, other, excessive sedation/respiratory depression, Starting on Wed08/28/22 at 1225, For 1 dose, Phase I, Dilute 0.4 mg with 9 mL NS (final concentration 0.04 mg/mL). For respiratory depression (respiratory rate less than 6), administer 0.4 mg IVP over 30 seconds. For excessive sedation administer 0.04 mg (1 mL) every 1 minute until desired level of alertness. For IV, administer over 30 seconds., Indications: Opioid Toxicity oxymetazoline (AFRIN) 0.05 % nasal spray (CANCELED) As needed, Starting on Wed08/28/22 at 0801, Intra-Op 0801 (Given - Provid er: Massiel Gastelum MD) sodium chloride 0.9% irrigation (CANCELED) As needed, Starting on Wed08/28/22 at 0802, Intra-Op 0802 (Given - Provid er: Massiel Gastelum MD) sodium chloride 0.9% irrigation (CANCELED) As needed, Starting on Wed08/28/22 at 0802, Intra-Op 0802 (Given - Provid er: Massiel Gastelum MD) documented in this encounter Orders Medications Ordered That John ht Not Have Been Administered Count Last Ordered Date First Ordered Date Carrier Fluids for Secondary Infusion - 0.9% Sodium Chloride 1 08/28/2022 ceFAZolin (ANCEF) 2,000 mg/2 0 mL in sterile water (premix) 2,000 mg 1 08/28/2022 fentaNYL (SUBLIMAZE) preserv ative free injection 50 mcg 1 08/28/2022 HYDROmorphone (DILAUDID) injection 0.2 mg 1 08/28/2022 HYDROmorphone (DILAUDID) injection 0.4 mg 1 08/28/2022 Lactated Ringer's (LR) infusion 1 naloxone (NARCAN) 0.4 mg/mL injection 0.04-0.4 mg 1 08/28/2022 sodium chloride 0.9% flush 0.5-20 mL 1 08/02 Discharge Count Last Ordered Date First Orde red Date DISCHARGE PATIENT 1 08/28/2022 documented in this encounter Care Teams It Project Manager Relationship Specialty Start Date End Date Guero Colunga DO PCP - General Internal Medicine 03/22/19 04/18/23 Amber Montesinos, RN Toddler Nanny Transplant 11/17/19 Jil Duncan MD Consulting Physician Infectious Diseases 01/10/20 Anita Gillespie MD Medical Oncologist/Woodworking Machine Operator Medical Oncology 10/07/20 Tabitha Hurley MD [address] [place] [address] Consulting Physician Rheumatology 10/22/21 Massiel Gastelum MD [address] [place] [address] Consulting Physician Otolaryngology 08/27/22 documented as of this encounter
--- OUTSIDE RECORDS SUMMARY | 2024-10-28 06:11 | XMS_ITS | Encounter Summary ---
Author Organization [facility] Healthcare Address [address] [place] [address] Care Team Providers Care Mask Inspector Name Role Phone Guero Colunga Primary Care Provider [phone] Amber Montesinos RN Unavailable [phone] Jil Duncan MD Unavailable [phone] Anita Gillespie MD Unavailable [phone] Tabitha Hurley MD Unavailable [phone] Encounter Details Date Type Department Care Team (Late st Contact Info) Description 08/26/2022 Telephone [facility] Trans[facility] Liver [address] [address] [phone] [place] [address] Amber Montesinos RN Social History Tobacco Use Types Packs/Day Years Used Date Smoking Tobacco: Never Smokeless Tobacco: Current Chew Alcohol Use Standard Drinks/Week Comments Yes 0 (1 standard drink = 0.6 oz pur e alcohol) occassional AUDIT-C Answer Date Recorded Q1: How often do you have a drink containing alc ohol? 2-4 times a month 08/18/2022 Q2: How many drinks containi ng alcohol do you have on a typical day when you are drinking? 1 or 2 08/18/2022 Q3: How often do you have si x or more drinks on one occasion? 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 So would you be able to send the order by email and he can have it done night after work. Email is [email or web address] documented in this encounter Plan of Treatment Scheduled Procedures Name Priority Associated Diagnoses Date/Ti me COLONOSCOPY Encounter for screening for colorectal cancer in high risk patient Family history of rectal cancer documented as of this encounter Visit Diagnoses Not on filedocumented in this encounter Care Teams Mask Inspector Relationship Specialty Start Date End Date Guero Colunga DO PCP - General Internal Medicine 03/22/19 04/18/23 Amber Montesinos RN Fiberglass Model Maker Transplant 11/17/19 Jil Duncan MD Consulting Physician Infectious Diseases 01/10/20 Anita Gillespie MD Medical Oncologist/Web Weaver Medical Oncology 10/07/20 Tabitha Hurley MD [address] [facility] [address] [place] [address] Consulting Physician Rheumatology 10/22/21 documented as of this encounter
--- OUTSIDE RECORDS SUMMARY | 2024-10-28 06:11 | XMS_ITS | Encounter Summary ---
Author Organization [facility] Healthcare Address [address] [place] [address] Care Team Providers Care Mechanical Insulator Name Role Phone Guero Colunga Primary Care Provider [phone] Amber Montesinos RN Unavailable [phone] Jil Duncan MD Unavailable [phone] Anita Gillespie MD Unavailable [phone] Tabitha Hurley MD Unavailable [phone] Massiel Gastelum MD Unavailable [phone] Reason for Visit * Auth/Cert Specialty Diagnoses / Procedures Referred By Contac t Referred To Contact Diagnoses Chronic pansinusitis Immunocompromised patient (HCC) Chronic pansinusitis [J32.4] Immunocompromised patient (CMS/HCC) (HCC) [D84.9] Procedures OR NASAL/SINUS ENDOSCOPY,RMV TISS MAXILL SINUS OR NASAL/SINUS NDSC TOT W/FRNT SINS EXPL TISS RMVL OR NASAL/SINUS ENDOSCOPY,SPHENOIDOTOMY OR STEREOTACTIC COMP ASSIST PROC,CRANIAL,EXTRADURAL ENDOSCOPIC SINUS SURGERY WITH NAVIGATION ENDOSCOPIC FRONTAL SINUSOTOMY FUSION NAVIGATION - BILATERAL Massiel Gastelum MD [address] [place] [address] Phone: tel: fax: Referral ID Status Reason Start Date Expiration Date Visits Re quested Visits Authorized [id number] 08/04/2022 1 1 Encounter Details Date Type Department Care Team (Late st Contact Info) Description 08/28/2022 7:25 AM CDT Anesthesia Event [facility] Operating [facility] ([facility]) [address] [place] [address] Laurent Beckford MD [address] [place] [address] Bonita Funes NP [address] [facility] [address] [place] [address] Anesthesia Record Procedure Summary Procedure Name Responsible Anesthesiologist Anesthesia Start Time Anesthesia Stop Time ENDOSCOPIC SINUS SURGERY WITH NAVIGATION (Bilateral) Laurent Beckford MD 08/28/22 0725 08/28/22 1217 Events Date Time Event Comment 08/28/2022 0531 In Preop 0725 In Room 0725 An Start 0725 An Start Data 0730 An Induction The patient was reevaluated immediately before moderate or deep sedation use and before anesthesia induction. 0731 An Intubation 0732 0734 HOB turned 180 degrees 0745 Proc Start 0748 Incision Start 0749 Anesthesia Ready 1204 Proc Fin 1209 An Extubation 1210 an stop data 1210 Out of Room 1217 Handoff to RN I completed my handoff [...] disposition at the time of handoff: PACU 1217 An Stop Meds Name Total midazolam PF 2 mg lidocaine (cardiac) syringe 2 % 100 mg propofol 200 mg fentaNYL 200 mcg succinylcholine 100 mg phenylephrine 100 mcg/mL 100 mcg ondansetron PF (ZOFRAN) 2 mg/mL injectio n 4 mg glycopyrrolate 0.2 mg famotidine 20 mg phenylephrine infusion (100 mcg/mL) 5.01 mg dexmedeTOMIDine 80mcg/20mL (4 mcg/mL) 16 mcg Lactated Ringer's (LR) infusion 800 mL * Agents Name O2% N2O O2 N2O Air Sevoflurane Inspired Sevoflurane * Blood No blood administrations on file. Lines, Drains, and Airways Type Details Placement Removal RETIRED Surgical Site 05/14/20; 1324; Right, Upper; Abdomen; s/p liver biopsy; 08/25/23; 1303; Not present on admission 05/14/20 1324 by Guicho Nieto RN 08/25/23 1303 by Adriane Campos, SHAILESH Peripheral IV Placement Date: 08/28/22; Placement Time: 0602; Catheter Size: 20 G; Orientation: Right, Distal; Location: Forearm; Site Prep: Chlorhexidine; Insertion Attempts: 1; Patient Tolerance: Tolerated well; Removal Date: 08/28/22; Removal Time: 1350; Removal Reason: Discharge 08/28/22 0602 by Bria Ley RN 08/28/22 1350 by Delia Galvan RN ETT Placement Date: 08/28/22; Placement Time: 0754 (created via procedure documentation); Mask Ventilation: 1; Technique: Video laryngoscopy; Type: ETT - single; Single Lumen Tube Size: 7 mm; Cuffed: Yes; Laryngoscope: Romain; Blade Size: 3; Location: Oral; Insertion Attempts: 1; Placement Verification: Auscultation, Capnometry; Removal Date: 08/28/22; Removal Time: 1209 08/28/22 0754 by Philip Lutz CRNA 08/28/22 1209 by Philip Lutz CRNA RETIRED Surgical Site 08/28/22; 1141; Nose; Bilateral nostrils.; 08/25/23; 1303; Not present on admission 08/28/22 1141 by Mohan Cordero RN 08/25/23 1303 by Adriane Campos, SHAILESH documented in this encounter Social History Tobacco [...] 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 Gender Identity Not on file Sexual Orientation Straight 08/22/2021 9: 23 AM CDT documented as of this encounter OR Notes * Anesthesia Postprocedure Evaluation - Judah Chong MD - 08/28/2022 1:35 PM CDT Patient: Beka Nichols Procedure Summary Date: 08/28/22 Room / Location: [facility] CAM OR POD 4 ROOM K / [facility] CAM OR POD 4 Anesthesia Start: 724 Anesthesia Stop: 1216 Procedures: ENDOSCOPIC SINUS SURGERY WITH NAVIGATION (Bilateral) ENDOSCOPIC FRONTAL SINUSOTOMY FUSION NAVIGATION - BILATERAL (Bilateral) Diagnosis: Chronic pansinusitis Immunocompromised patient (CMS/HCC) (HCC) (Chronic pansinusitis [J32.4]) (Immunocompromised patient (CMS/HCC) (HCC) [D84.9]) Surgeons: Massiel Gastelum MD Responsible Provider: Laurent Beckford MD Anesthesia Type: general ASA Status: Not recorded Anesthesia Type: general Last vitals BP 103/67 Pulse 87 Temp 37.2 ??C (99 ??F) (Temporal) Resp 19 SpO2 94% Anesthesia Post Evaluation Patient location during evaluation: PACU Patient participation: complete - patient participated Level of consciousness: fully awake Pain score: 0 Pain management: adequate Airway patency: adequate and patent Evidence of recall: no Cardiovascular status: acceptable and hemodynamically stable Respiratory status: acceptable and room air Hydration status: acceptable Pt is: normothermic Nausea/Vomiting status: none No notable events documented. * Anesthesia Procedure Notes - Philip Lutz CRNA - 08/28/2022 7:53 AM CDTAssociated Order(s): Airway Airway Patient location: OR Urgency: elective Indications for airway management: anesthesia Difficult airway: no Staff: Placed by: BLAST HOLE DRILLER: Philip Lutz CRNA Emergent airway documentation: Risks and benefits discussed: yes Consent obtained: yes Consent given by: patient Airway prep: Preoxygenated: yes Patient position: sniffing MILS maintained throughout: yes Mask difficulty assessment: 1 - vent by mask Spontaneous ventilation during airway: absent Sedation level during airway: GA Final airway details: Final airway type: endotracheal airway Tube type: ETT ETT size: 7.0 mm Cuffed: yes Technique used for successful ETT placement: video laryngoscopy Devices/Methods used in placement: intubating stylet Insertion site: oral Blade type: Romain Video blade type: Anand Blade size: 3 Cormack-Lehane (video): grade I - full view of glottis Cuff volume: 8 mL Cuff inflated with: air ETT to lips: 22 cm Placement verified by: auscultation and CO2 detection Airway secured with: silk tape Number of attempts: 1 Ventilation between attempts: BVMno * Anesthesia Preprocedure Evaluation - Laurent Beckford MD - 08/18/2022 11:06 AM CDT Images from the original note were not included. Center for Preoperative Assessment and Planning Preoperative Evaluation Record Evaluation type/location: TPAP from [facility] Planned procedure site: [facility] CAM OR (Pod 4) Date: 08/18/22 NOTE: This note represents a preoperative evaluation initiated via telephone interview. NO PHYSICALEXAM was performed at the time of initial assessment. A physical exam may be added to this note anddocumented below. Anesthesia Evaluation Beka Nichols is a 27 y.o. male Procedure(s): [...] refractory ITP s/p splenectomy 2012. 08/18/2022 Plt [id number] Gastrointestinal GI system: negative Renal / Renal/ system: negative Musculoskeletal/Pain Pertinent negatives: chronic pain Musculoskeletal/Pain system: negative Endocrine / Other + Cancer history- in remission and s/p chemo. Cancer type: 2018 Non-Hodgkins Lymphoma S/p chemotherapy x6 months. 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 Has F/u with [facility] Liver Transplant Team.) - liver. Pertinent negatives: diabetes mellitus; thyroid disease; obesity (BMI >30) and rheumatological disease Comments: + Immunocompromised Functional Capacity Functional capacity: 4-6 METs Comments: Walks 1 mile and climb 1 flight of stairs--no CP or SOB. Tolerates HOB flat. Review of Systems + previous transfusion (2018--no adverse reaction reported) + chipped/loose teeth (Chipped [...] risk. Preoperative assessment status: complete. Additional comments: Beka Nichols is a 27 y.o. male who is being evaluated prior to undergoing a low cardiac risk surgery. Revised Cardiac Risk Index factors are (none) for a total RCRI of 0 out of6. Functional capacity is 4-6 METs. Obstructive sleep apnea (WINTER) screening status is STOP-Bang=1 suggesting low risk for WINTRE Blood bank needs for day of procedure: No type and screen needed Pending labs/tests as per Surgeon. This assessment was performed via telephone. Therefore the physical exam has been deferred to the day of surgery team. The patient was provided with preoperative instructions for their medications. Patient instructions were provided by telephone and electronically sent via [employer]. Patient verbalized understanding of preoperative plan. Patient's COVID19 status is: Unexposed. The patient currently has no concerning symptoms of COVID19. . Patient's COVID-19 vaccination status is Up to date with 1 J&J vaccine & 1 mRNA vaccine.Documentation of vaccination status is available in the [facility] Immunization tab. . Plan for pre-procedure COVID19 [...] ??? Community acquired pneumonia ??? Lymphadenopathy ??? emt intermediate current use of immunosuppressive drug ??? Cytomegalovirus [...] Transplant: 03/03/1999 (Liver) Discharge: ICD10: Z94.4 Transplant: [facility] ([place], [place]) traZODone (DESYREL) 50 mg tablet () -- 03/05/22 08/17/22 Anita Gillespie MD Take 1 tablet (50 mg total) by mouth nightly Patient taking differently: Take 50 mg by mouth nightly as needed ursodioL (ACTIGALL) 300 mg capsule 08/16/2022 10/02/21 -- Theodore Gresham MD Take 2 capsules (600 mg total) by mouth daily with dinner valGANciclovir (VALCYTE) 450 mg tablet 08/17/2022 -- -- Dl Barajas MD Ongoing Comment Juanita Martin RN 01/24/2022 8:57 AM 02/18/20NO INTERACTIONS FOR ADMISSION-WIN RN No interactilns 03/12/2020 Rosemarie RN No interactions noted. 03/15/2020 Rosemarie RN No med interactions 03/25/2020 No severe interactions noted 12/20/2021 CAITLYN RN 12/27/21 No severe interaction noted upon review Lesvia Conde DIGITAL CAMPAIGN MANAGER 01/24/2022 No severe interactions or contraindications noted. [...] 08/08/2022: 0.82 mg/dl Arti index score: 100 DOS Physical Exam Medical history, medications, and allergies reviewed. Attestation: I endorse the findings of the anesthesia pre-evaluation assessment dated: 08/18/2022. Airway Exam: Mallampati: II Cervical ROM: FROM TM distance: normal Cardiovascular Exam: Rate: regular Rhythm: regular Pulmonary Exam: LCTA, bilat EENT Exam: trachea midline Dental Exam: Appears intact Skin Exam: Skin is warm. Abdominal Exam: Abdomen is soft. Current state: Patient's current state is cooperative and interactive. Anesthesia Plan ASA 2 My patient is approved for the Anesthesia Controlled Medication protocol when under care of a BLAST HOLE DRILLER Planned anesthesia: General Team communication plan: oral ET tube Induction: Induction: intravenous. Postoperative Plan: Postoperative administration opioids intended. No postoperative mechanical ventilation intended. Patient's planned disposition post procedure is Outpatient. Informed Consent: Discussed plan with BLAST HOLE DRILLER. Anesthesia plan and risks discussed with patient. [...] Procedure Name Priority Date/Time Associated Diagnosis Comments OR AN PROCEDURE PLACEHOLDER Routine 08/28/2022 7:53 AM CDT OR AN ELECTIVE ENDOTRACHEAL AIRWAY Routine 08/28/2022 7:53 AM CDT documented in this encounter Results * OR AN ELECTIVE ENDOTRACHEAL AIRWAY, OR AN PROCEDURE PLACEHOLDER (08/28/2022 7:53 AM CDT) Narrative Philip Lutz CRNA - 08/28/2022 7:53 AM CDT Philip Lutz CRNA ? 08/28/2022 ??7:54 AM Airway Patient location: OR Urgency: elective Indications for airway management: anesthesia Difficult airway: no Staff: Placed by: BLAST HOLE DRILLER: Philip Lutz CRNA Emergent airway documentation: Risks and benefits discussed: yes Consent obtained: yes Consent given by: patient Airway prep: Preoxygenated: yes Patient position: sniffing MILS maintained throughout: yes Mask difficulty assessment: 1 - vent by mask Spontaneous ventilation during airway: absent Sedation level during airway: GA Final airway details: Final airway type: endotracheal airway Tube type: ETT ETT size: 7.0 mm Cuffed: yes Technique used for successful ETT placement: video laryngoscopy Devices/Methods used in placement: intubating stylet Insertion site: oral Blade type: Romain Video blade type: Anand Blade size: 3 Cormack-Lehane (video): grade I - full view of glottis Cuff volume: 8 mL Cuff inflated with: air ETT to lips: 22 cm Placement verified by: auscultation and CO2 detection Airway secured with: silk tape Number of attempts: 1 Ventilation between attempts: BVMno Laurent Beckford MD ANESTHESIA ORDERABLES Chata l Result documented in this encounter Visit Diagnoses Not on filedocumented in this encounter Administered Medications Inactive Administered Medications - up to 3 most recent administrations Medication Order MAR Action Action Date Dose Rate Site dexmedeTOMIDine (PRECEDEX) 80 mcg/20 mL (4 mcg/mL) in sodium chloride 0.9% (premix) intravenous, As needed, Starting on Wed08/28/22 at 1005, Anesthesia Intra-op Given 08/28/2022 10:05 AM CDT 8 mcg Given 08/28/2022 10:02 AM CDT 8 mcg famotidine (PEPCID) injection intravenous, Administer over 2 Minutes, As needed, Starting on Wed08/28/22 at 0801, Anesthesia Intra-op Given 08/28/2022 8:01 AM CDT 20 mg fentaNYL (SUBLIMAZE) preservative free injection intravenous, As needed, Starting on Wed08/28/22 at 0732, Anesthesia Intra-op Given 08/28/2022 10:33 AM CDT 100 m cg Given 08/28/2022 7:32 AM CDT 100 mcg glycopyrrolate (ROBINUL) injection intravenous, Administer over 1 Minutes, As needed, Starting on Wed08/28/22 at 0742, Anesthesia Intra-op Given 08/28/2022 7:42 AM CDT 0.2 mg Lactated Ringer's (LR) infusion 30 mL/hr, intravenous, Continuous, Starting on Wed08/28/22 at 0615 Restarted 08/28/2022 11:16 AM CDT New Bag 08/28/2022 7:24 AM CDT 30 mL/hr lidocaine (cardiac) (XYLOCAINE) preservative free injection intravenous, As needed, Starting on Wed08/28/22 at 0730, Anesthesia Intra-op, Indications: Ventricular ArrhythmiasIndications:Ventr icular Arrhythmias Given 08/28/2022 7:30 AM CDT 100 mg midazolam (VERSED) 1 mg/mL preservative free injection intravenous, Administer over 2 Minutes, As needed, Starting on Wed08/28/22 at 0726, Anesthesia Intra-op Given 08/28/2022 7:26 AM CDT 2 mg ondansetron (ZOFRAN) injection intravenous, Administer over 2 Minutes, As needed, Starting on Wed08/28/22 at 0801, Anesthesia Intra-op Given 08/28/2022 8:01 AM CDT 4 mg phenylephrine (KOBE-SYNEPHRINE) 1 mg/10 mL (100 mcg/mL) in sodium chloride 0.9% (premix) intravenous, As needed, Starting on Wed08/28/22 at 0744, Anesthesia Intra-op Given 08/28/2022 7:44 AM CDT 100 mcg phenylephrine (KOBE-SYNEPHRINE) 5 mg/50 mL (100 mcg/mL) in sodium chloride 0.9% (premix) intravenous, Continuous PRN, Starting on Wed08/28/22 at 0743, Anesthesia Intra-op New Bag 08/28/2022 7:43 AM CDT 0.3 mcg/kg/min 11.844 mL/hr propofoL (DIPRIVAN) 10 mg/mL IV intravenous, As needed, Starting on Wed08/28/22 at 0730, Anesthesia Intra-op Given 08/28/2022 7:30 AM CDT 200 mg succinylcholine (ANECTINE) injection intravenous, As needed, Starting on Wed08/28/22 at 0731, Anesthesia Intra-op Given 08/28/2022 7:31 AM CDT 100 mg documented in this encounter Care Teams Mechanical Insulator Relationship Specialty Start Date End Date Guero Colunga DO PCP - General Internal Medicine 03/22/19 04/18/23 Amber Montesinos, RN Customer Service Clerk Transplant 11/17/19 Jil Duncan MD Consulting Physician Infectious Diseases 01/10/20 Anita Gillespie MD Medical Oncologist/Youth Director Medical Oncology 10/07/20 Tabitha Hurley MD [address] [place] [address] Consulting Physician Rheumatology 10/22/21 Massiel Gastelum MD [address] [place] [address] Consulting Physician Otolaryngology 08/27/22 documented as of this encounter
--- OUTSIDE RECORDS SUMMARY | 2024-10-28 06:11 | XMS_ITS | Encounter Summary ---
Author Organization [facility] Healthcare Address [address] [place] [address] Care Team Providers Care Clipper Counters Name Role Phone Guero Colunga Primary Care Provider [phone] Amber Montesinos RN Unavailable [phone] Jil Duncan MD Unavailable [phone] Anita Gillespie MD Unavailable [phone] Tabitha Hurley MD Unavailable [phone] Encounter Details Date Type Department Care Team (Late st Contact Info) Description 08/10/2022 [address]phone [facility] Trans[facility] Liver [address] [address] [phone] [place] [address] Amber Montesinos RN Social History [...] on file 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 Labs reviewed with Dr. Gresham. Plan for outpatient liver biopsy. Patient stating he is agreeable to plan. He is off work the week of 08/31-09/04. He would prefer an appointment earlier in the day and the week. Let him know I would talk to the schedulers and let them know what they have available. documented in this encounter Plan of Treatment Scheduled Procedures Name Priority Associated Diagnoses Date/Ti me COLONOSCOPY Encounter for screening for colorectal cancer in high risk patient Family history of rectal cancer documented as of this encounter Visit Diagnoses Not on filedocumented in this encounter Care Teams Clipper Counters Relationship Specialty Start Date End Date Guero Colunga DO PCP - General Internal Medicine 03/22/19 04/18/23 Amber Montesinos RN Overlock Waistline Joiner Transplant 11/17/19 Jil Duncan MD Consulting Physician Infectious Diseases 01/10/20 Anita Gillespie MD Medical Oncologist/Transaction Advisory Services Manager Medical Oncology 10/07/20 Tabitha Hurley MD [address] [facility] [address] [place] [address] Consulting Physician Rheumatology 10/22/21 documented as of this encounter
--- OUTSIDE RECORDS SUMMARY | 2024-10-28 06:11 | XMS_ITS | Encounter Summary ---
Author Organization [facility] Healthcare Address [address] [place] [address] Care Team Providers Care Crisis Specialist Name Role Phone Guero Colunga Primary Care Provider [phone] Amber Montesinos RN Unavailable [phone] Jil Duncan MD Unavailable [phone] Anita Gillespie MD Unavailable [phone] Tabitha Hurley MD Unavailable [phone] Encounter Details Date Type Department Care Team (Late st Contact Info) Description 07/17/2022 Documentation [facility] and [facility] Transplant Liver [address] [address] Mail[address] 12-03-9[address] [place], [place] [id number] Amber Montesinos RN Social History Tobacco Use [...] on file 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 Gresham that patient's maribavir is being discontinued. Patient is repeating labs on Wednesday. Will await further dose adjustments for his tacrolimus after his repeat labs. documented in this encounter Plan of Treatment Scheduled Procedures Name Priority Associated Diagnoses Date/Ti me COLONOSCOPY Encounter for screening for colorectal cancer in high risk patient Family history of rectal cancer documented as of this encounter Visit Diagnoses Not on filedocumented in this encounter Care Teams Crisis Specialist Relationship Specialty Start Date End Date Guero Colunga DO PCP - General Internal Medicine 03/22/19 04/18/23 Amber Montesinos, SHAILESH Administrative Clerk Transplant 11/17/19 Jil Duncan MD Consulting Physician Infectious Diseases 01/10/20 Anita Gillespie MD Medical Oncologist/Faculty Dean Medical Oncology 10/07/20 Tabitha Hurley MD [address] [facility] 14 [place] [address] Consulting Physician Rheumatology 10/22/21 documented as of this encounter
--- OUTSIDE RECORDS SUMMARY | 2024-10-28 06:11 | XMS_ITS | Encounter Summary ---
Author Organization [facility] Healthcare Address [address] [place] [address] Care Team Providers Care Sales Producer Name Role Phone Guero Colunga Primary Care Provider [phone] Amber Montesinos RN Unavailable [phone] Jil Duncan MD Unavailable [phone] Anita Gillespie MD Unavailable [phone] Tabitha Hurley MD Unavailable [phone] Massiel Gastelum MD Unavailable [phone] Encounter Details Date Type Department Care Team (Latest Contact Info) Description 12/21/2022 1:50 PM PHARMACY BENEFITS COORDINATOR - 12/21/2022 11:59 PM [facility] Hospital Encounter [address] [address] Chronic pansinusitis Discharge Disposition: Discharge [...] on file Legal Sex Male 6:28 AM PHARMACY BENEFITS COORDINATOR Gender Identity Not on file Sexual Orientation Straight 08/22/2021 9: 23 AM CDT documented as of this encounter Medications at Time of Discharge acetaminophen (TYLENOL) 500 mg tablet Take 2 tablets (1,000 mg total) by mouth every 6 (six) hours as needed for pain 30 tablet 1 08/28/2022 3 amoxicillin-clav ulanate (Augmentin) 875-125 mg per tablet Take 1 tablet by mouth 2 (two) times a day for 21 days 42 tablet 12/21/2022 3 budesonide (Pulmicort) 0.5 mg/2 mL nebulizer [...] needed for pain 15 tablet 08/28/2022 3 predniSONE (DELTASONE) 10 mg tablet 40 mg for 3 days, 30 mg for 3 days, 20 mg for 3 days 10 mg for 3 days 30 tablet 09/07/2022 3 tacrolimus (PROGRAF) 0.5 mg immediate-releas e [...] times a day 120 tablet 11/27/2022 3 documented as of this encounter Discharge [...] AND ANAEROBIC CULTURE AND GRAM STAIN Routine 12/21/2022 1:50 PM PHARMACY BENEFITS COORDINATOR Chronic pansinusitis documented in this encounter Results * (ABNORMAL) Aerobic and anaerobic culture and gram stain Wound Sinus (12/21/2022 1:50 PM PHARMACY BENEFITS COORDINATOR) Direct Specimen Exam Stain: Moderate polymorphonuclear leukocytes seen. Rare Gram Positive Cocci [facility] Report Final Report: Few Mixed microorganisms. Includes the following: Few Moraxella catarrhalis , Beta lactamase positive (.) [facility] Organism MORAXELLA CATARRHALIS [facility] Organism MIXED MICROORGANISMS. [facility] Wound (Sinus) 12/21/2022 1:5 0 PM PHARMACY BENEFITS COORDINATOR 12/21/2022 3:32 PM PHARMACY BENEFITS COORDINATOR Narrative [facility] - 12/26/2022 10:03 AM PHARMACY BENEFITS COORDINATOR Specimen received on an ESwab. Testing performed by [facility]biology Laboratory ([phone]) Specimens submitted from normally sterile body sites [...] MICROBIOLOGY - GEN ERAL ORDERABLES Final Result [facility] Department of Laboratories [place], [place] [id number] documented in this encounter Visit Diagnoses Diagnosis Chronic pansinusitis Other chronic sinusitis documented in this encounter Care Teams Sales Producer Relationship Specialty Start Date End Date Guero Colunga DO PCP - General Internal Medicine 03/22/19 04/18/23 Amber Montesinos, SHIALESH Third Steel Pourer Transplant 11/17/19 Jil Duncan MD Consulting Physician Infectious Diseases 01/10/20 Anita Gillespie MD Medical Oncologist/Barrel Polisher Inside Medical Oncology 10/07/20 Tabitha Hurley MD [address] [address] Consulting Physician Rheumatology 10/22/21 Massiel Gastelum MD [address] [address] Consulting Physician Otolaryngology 08/27/22 documented as of this encounter
--- OUTSIDE RECORDS SUMMARY | 2024-10-28 06:11 | XMS_ITS | Encounter Summary ---
Author Organization [facility] Healthcare Address [address] [place] [address] Care Team Providers Care Detacher Name Role Phone Guero Colunga Primary Care Provider [phone] Amber Montesinos RN Unavailable [phone] Jil Duncan MD Unavailable [phone] Anita Gillespie MD Unavailable [phone] Tabitha Hurley MD Unavailable [phone] Massiel Gastelum MD Unavailable [phone] Encounter Details Date Type Department Care Team (Late st Contact Info) Description 08/31/2022 9:15 AM CDT Office Visit 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 Gender Identity Not on file Sexual Orientation Straight 08/22/2021 9: 23 AM CDT documented as of this encounter Plan of Treatment Scheduled Procedures Name Priority Associated Diagnoses Date/Ti me COLONOSCOPY Encounter for screening for colorectal cancer in high risk patient Family history of rectal cancer documented as of this encounter Procedures Procedure Name Priority Date/Time Associated Diagnosis Comments APTT Routine 08/31/2022 8:46 AM CDT History of liver transplant (CMS/HCC) (HCC) LFT elevation Pre-procedure lab exam PROTIME-INR Routine 08/31/2022 8:46 AM CDT History of liver transplant (CMS/HCC) (HCC) LFT elevation Pre-procedure lab exam documented in this encounter Results * aPTT (08/31/2022 8:46 AM CDT) aPTT 30 27 - 37 sec [facility] Comment: Interpretive Data Therapeutic heparin range: 60.0 - 94.0 seconds. Based on correlation with therapeutic heparin activity range of 0.3-0.7 Units/mL. Current interpretive data was last revised on 2020. Blood 08/31/2022 8:46 AM CDT 08/31/2022 8:58 AM CDT Theodore Gresham MD LAB BLOOD ORDERABLES Final Result [facility] [place] [address] * Protime-INR (08/31/2022 8:46 AM CDT) PT 11.3 9.2 - 13.5 sec [facility] INR 1.0 0.9 - 1.2 [facility] Comment: Interpretive data Oral anticoagulant therapeutic ranges: Venous thromboembolism prophylaxis or treatment: 2.0-3.0 CARDIOLOGY Standard range: 2.0-3.0 High-intensity range: 2.5-3.5 Refer to indication-specific guidelines for appropriate target ranges for prosthetic heart valve replacement. Current interpretive data was last revised on 2019. Blood 08/31/2022 8:46 AM CDT 08/31/2022 8:58 AM CDT Theodore Gresham MD LAB BLOOD ORDERABLES Final Result [facility] Department of Laboratories [place], [place] [id number] documented in this encounter Visit Diagnoses Diagnosis History of liver transplant (CMS/HCC) (HCC) Liver replaced by transplant LFT elevation Pre-procedure lab exam Pre-procedural laboratory examination documented in this encounter Care Teams Detacher Relationship Specialty Start Date End Date Guero Colunga DO PCP - General Internal Medicine 03/22/19 04/18/23 Amber Montesinos, SHAILESH Deputy Treasurer Transplant 11/17/19 Jil Duncan MD Consulting Physician Infectious Diseases 01/10/20 Anita Gillespie MD Medical Oncologist/Screen And Cyclone Repairer Medical Oncology 10/07/20 Tabitha Hurley MD [address] [place] [address] Consulting Physician Rheumatology 10/22/21 Massiel Gastelum MD [address] [place] [address] Consulting Physician Otolaryngology 08/27/22 documented as of this encounter
--- OUTSIDE RECORDS SUMMARY | 2024-10-28 06:11 | XMS_ITS | Encounter Summary ---
Author Organization [facility] Healthcare Address [address] [place] [address] Care Team Providers Care Investigator Name Role Phone Guero Colunga Primary Care Provider [phone] Amber Montesinos RN Unavailable [phone] Jil Duncan MD Unavailable [phone] Anita Gillespie MD Unavailable [phone] Tabitha Hurley MD Unavailable [phone] Massiel Gastelum MD Unavailable [phone] Encounter Details Date Type Department Care Team (Late st Contact Info) Description 11/17/2022 Orders Only [facility] Health Information Management [address] [place] [address] Scanning, Provider Social History Tobacco Use Types [...] on file Legal Sex Male 6:28 AM SOCIAL WORKER Gender Identity Not on file Sexual Orientation Straight 08/22/2021 9: 23 AM CDT documented as of this encounter Plan of Treatment Scheduled Procedures Name Priority Associated Diagnoses Date/Ti me COLONOSCOPY Encounter for screening for colorectal cancer in high risk patient Family history of rectal cancer documented as of this encounter Procedures Procedure Name Priority Date/Time Associated Diagnosis Comments SCAN - LABS 11/17/2022 12:59 PM SOCIAL WORKER documented in this encounter Results * SCAN - LABS (11/17/2022 12:59 PM SOCIAL WORKER) us Provider Scanning Final Result documented in this encounter Visit Diagnoses Not on filedocumented in this encounter Care Teams Investigator Relationship Specialty Start Date End Date Guero Colunga DO PCP - General Internal Medicine 03/22/19 04/18/23 Amber Montesinos RN Parking Line Painter Transplant 11/17/19 Jil Duncan MD Consulting Physician Infectious Diseases 01/10/20 Anita Gillespie MD Medical Oncologist/Senior Cost Analyst Medical Oncology 10/07/20 Tabitha Hurley MD [address] [place] [address] Consulting Physician Rheumatology 10/22/21 Massiel Gastelum MD [address] [place] [address] Consulting Physician Otolaryngology 08/27/22 documented as of this encounter
--- OUTSIDE RECORDS SUMMARY | 2024-10-28 06:11 | XMS_ITS | Encounter Summary ---
Author Organization [facility] Healthcare Address [address] [place] [address] Care Team Providers Care Enrollment Management Director Name Role Phone Guero Colunga Primary Care Provider [phone] Amber Montesinos RN Unavailable [phone] Jil Duncan MD Unavailable [phone] Anita Gillespie MD Unavailable [phone] Tabitha Hurley MD Unavailable [phone] Encounter Details Date Type Department Care Team (Late st Contact Info) Description 07/10/2022 Telephone [facility] Transplant Liver [address] [address] Mail[address] [phone] [place] [address] Amber Montesinos RN Social History [...] file Legal 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 Gresham regarding patient's admission documented in this encounter Plan of Treatment [...] documented as of this encounter Care Teams Enrollment Management Director Relationship Specialty Start Date End Date Guero Colunga DO PCP - General Internal Medicine 03/22/19 04/18/23 Amber Montesinos, RN Oceanography Professor Transplant 11/17/19 Jil Duncan MD Consulting Physician Infectious Diseases 01/10/20 Anita Gillespie MD Medical Oncologist/Chair Post Machine Operator Medical Oncology 10/07/20 Tabitha Hurley MD [address] [place] [address] Consulting Physician Rheumatology 10/22/21 documented as of this encounter
--- OUTSIDE RECORDS SUMMARY | 2024-10-28 06:11 | XMS_ITS | Encounter Summary ---
Author Organization [facility] Healthcare Address [address] [place] [address] Care Team Providers Care Rate Inserter Name Role Phone Guero Colunga Primary Care Provider [phone] Amber Montesinos RN Unavailable [phone] Jil Duncan MD Unavailable [phone] Anita Gillespie MD Unavailable [phone] Tabitha Hurley MD Unavailable [phone] Massiel Gastelum MD Unavailable [phone] Encounter Details Date Type Department Care Team (Latest Contact Info) Description 09/30/2022 12:09 PM DEPUTY SHERIFF - 09/30/2022 11:59 PM [facility] Hospital Encounter [facility] Advanced Medicine [facility] Advanced Medicine ([facility]) [address] [place] [phone] Discharge Disposition: Discharge to home or self [...] on file Legal Sex Male 6:28 AM DEPUTY SHERIFF Gender Identity Not on file Sexual Orientation [...] on filedocumented in this encounter Care Teams Rate Inserter Relationship Specialty Start Date End Date Guero Colunga PCP - General Internal Medicine 03/22/19 04/18/23 Amber Montesinos, SHAILESH Teletypist Transplant 11/17/19 Jil Duncan MD Consulting Physician Infectious Diseases 01/10/20 Anita Gillespie MD Medical Oncologist/Stiff Leg Derrick Operator Medical Oncology 10/07/20 Tabitha Hurley MD [address] [place], [place] [id number] Consulting Physician Rheumatology 10/22/21 Massiel Gastelum MD [address] [place] [address] Consulting Physician Otolaryngology 08/27/22 documented as of this encounter
--- OUTSIDE RECORDS SUMMARY | 2024-10-28 06:11 | XMS_ITS | Encounter Summary ---
Author Organization [facility] Healthcare Address [address] [place] [address] Care Team Providers Care Hand Tier Name Role Phone Guero Colunga Primary Care Provider [phone] Amber Montesinos RN Unavailable [phone] Jil Duncan MD Unavailable [phone] Anita Gillespie MD Unavailable [phone] Tabitha Hurley MD Unavailable [phone] Massiel Gastelum MD Unavailable [phone] Encounter Details Date Type Department Care Team (Late st Contact Info) Description 09/11/2022 Telephone [facility] Transplant Liver [address] [facility] [address] [phone] [place] [address] Amber Montesinos, SHAILESH Social History Tobacco Use [...] on file Legal Sex Male 6:28 AM STONER HAND Gender Identity Not on file Sexual Orientation Straight 08/22/2021 9: 23 AM CDT documented as of this encounter Miscellaneous Notes * Telephone Encounter - Amber Vargas RN - 09/11/2022 9:14 AM CST Images from the original note were not included. Pathology conference findings 09/02/22: Placed call to both patient and mother to discuss biopsy results. 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 Let them know that this was not definitive but the decision was made by Dr. Gillespie, Dr. Gresham, and Dr. Osorio to refer patient to Immunology. ID also CC'd on note. Discussed that the plan would be for him to continue IVIG for now. Let them know that the referral has been placed and they should notify us if they are not contacted in 1-2 weeks. Patient stating that he is starting a new job next week and his insurance will term at the end of the month. [place] new job's insurance will not start until possibly spring. Coordinator also reviewed other options with SW such as Cobra or signing up through the Marketplace. Patient stating that he is going to reschedule both the liver transplant appointment and Dr. Gillespie's appointment at the end of the month. Discussed with SHAILESH Jolley from oncology. Asked him toplease let us know what the update is regarding his insurance as this could also delay his referral. Sent update to oncology, transplant, and infectious disease regarding patient losing insurance coverage by the end of the month if he is not approved for Medicaid. No new orders received at this time. ER HAND documented in this encounter Plan of Treatment Scheduled Procedures Name Priority Associated Diagnoses Date/Ti me COLONOSCOPY Encounter for screening for colorectal cancer in high risk patient Family history of rectal cancer documented as of this encounter Visit Diagnoses Not on filedocumented in this encounter Care Teams Hand Tier Relationship Specialty Start Date End Date Guero Colunga DO PCP - General Internal Medicine 03/22/19 04/18/23 Amber Montesinos, SHAILESH Recreation Programmer Transplant 11/17/19 Jil Duncan MD Consulting Physician Infectious Diseases 01/10/20 Anita Gillespie MD Medical Oncologist/Hand I Blocker Medical Oncology 10/07/20 Tabitha Hurley MD [address] [facility] 14 [place] [address] Consulting Physician Rheumatology 10/22/21 Massiel Gastelum MD [address] [place] [address] Consulting Physician Otolaryngology 08/27/22 documented as of this encounter
--- OUTSIDE RECORDS SUMMARY | 2024-10-28 06:11 | XMS_ITS | Encounter Summary ---
Author Organization [facility] Address [address] [place] [address] Phone Care Team Providers Care Play Therapist Name Role Phone Guero Colunga DO Primary Care Provider [phone] Amber Montesinos RN Unavailable [phone] Jil Duncan MD Unavailable [phone] Anita Gillespie MD Unavailable [phone] Tabitha uHrley MD Unavailable [phone] Encounter Details Date Type Department Care Team (Late st Contact Info) Description 07/16/2022 Telephone [facility] Infectious Diseases [address] [place] [address] [address] [place] [address] Lisandra Auguste, AIDEN [address] [place] [address] Social History Tobacco Use Types Packs/Day Years [...] file Legal 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 Discussed with Dr. Duncan. Will d/c maribavir and start Valcyte 900 mg PO BID. [employer] message sent and I confirmed with Beka's mother that he does have Valcyte at home that giulia start taking. He is currently getting drug via [facility]. Encouraged her to reach out to drug supplier to make sure he does not need to update his application so he can continue to get the drug. Will update his care team. documented in this encounter Plan of Treatment Scheduled Procedures Name Priority Associated Diagnoses Date/Ti me COLONOSCOPY Encounter for screening for colorectal cancer in high risk patient Family history of rectal cancer documented as of this encounter Visit Diagnoses Not on filedocumented in this encounter Discontinued Medications Medication Sig Discontinue Reason Start Date End Da te maribavir 200 mg tablet Take 2 tablets (400 mg total) by mouth 2 (two) times a day Therapy completed 03/09/2022 07/16/2022 documented as of this encounter Historical Medications * This list may reflect changes made after this encounter. valGANciclovir (VALCYTE) 450 mg tablet Take 900 mg by mouth 2 (two) times a day 11/27/2022 added in this encounter Additional Health Concerns Infection Onset Date Last Indicated Resolved Time Adenovirus, contact + droplet 07/09/2022 07/09/2022 07/16/2022 3:05 AM CDT Rhino/Enterovirus 07/09/2022 07/09/2022 07/16/2022 3:05 AM CDT documented as of this encounter Care Teams Play Therapist Relationship Specialty Start Date End Date Guero Colunga DO PCP - General Internal Medicine 03/22/19 04/18/23 Amber Montesinos, RN Pillar Worker Transplant 11/17/19 Jil Duncan MD Consulting Physician Infectious Diseases 01/10/20 Anita Gillespie MD Medical Oncologist/Pharmacist Critical Care Medical Oncology 10/07/20 Tabitha Hurley MD [address] [facility] [address] [place] [address] Consulting Physician Rheumatology 10/22/21 documented as of this encounter
--- OUTSIDE RECORDS SUMMARY | 2024-10-28 06:11 | XMS_ITS | Encounter Summary ---
Author Organization [facility] Address [address] [place] [address] Phone Care Team Providers Care Roller Embosser Name Role Phone Guero Colunga DO Primary Care Provider [phone] Amber Montesinos RN Unavailable [phone] Jil Duncan MD Unavailable [phone] Anita Gillespie MD Unavailable [phone] Tabitha Hurley MD Unavailable [phone] Massiel Gastelum MD Unavailable [phone] Reason for Visit * Reason Onset Date Comments Appointment 09/28/2022 Encounter Details Date Type Department Care Team (Late st Contact Info) Description 09/28/2022 Documentation [facility] Oncology [address] 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 Thanks!!! UNICATIONS EDITOR documented in this encounter Plan of Treatment Scheduled Procedures Name Priority Associated Diagnoses Date/Ti me COLONOSCOPY Encounter for screening for colorectal cancer in high risk patient Family history of rectal cancer documented as of this encounter Visit Diagnoses Not on filedocumented in this encounter Care Teams Roller Embosser Relationship Specialty Start Date End Date Guero Colunga DO PCP - General Internal Medicine 03/22/19 04/18/23 Amber Montesinos RN Pe Electrical Engineer Transplant 11/17/19 Jil Duncan MD Consulting Physician Infectious Diseases 01/10/20 Anita Gillespie MD Medical Oncologist/Operating Systems Programmer Medical Oncology 10/07/20 Tabitha Hurley MD [address] [place] [address] Consulting Physician Rheumatology 10/22/21 Massiel Gastelum MD [address] [place] [address] Consulting Physician Otolaryngology 08/27/22 documented as of this encounter
--- OUTSIDE RECORDS SUMMARY | 2024-10-28 06:11 | XMS_ITS | Encounter Summary ---
Author Organization [facility] Healthcare Address [address] [place] [address] Care Team Providers Care Umbrella Frame Maker Name Role Phone Guero Colunga Primary Care Provider [phone] Amber Montesinos RN Unavailable [phone] Jil Duncan MD Unavailable [phone] Anita Gillespie MD Unavailable [phone] Tabitha Hurley MD Unavailable [phone] Encounter Details Date Type Department Care Team (Late st Contact Info) Description 07/22/2022 Documentation [facility] Trans[facility] Liver [address] [address] Mailstop [id number] [place], [place] [id number] Amber Montesinos RN Social History Tobacco Use [...] on file Legal 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 Patient's mom reporting via mychart patient's dose of tacrolimus was due Wednesday prior to his labs. Let her know that plan would be to repeat them again on Wednesday (dose should be due morning) to see if an adjustment is indicated. Mother reporting that he still has a cough and fatigue but has been busy with work. Reviewed that if cough persists or if fever develops again, he should have follow up to see if pneumonia has resolved. documented in this encounter Plan of Treatment Scheduled Procedures Name Priority Associated Diagnoses Date/Ti me COLONOSCOPY Encounter for screening for colorectal cancer in high risk patient Family history of rectal cancer documented as of this encounter Visit Diagnoses Not on filedocumented in this encounter Care Teams Umbrella Frame Maker Relationship Specialty Start Date End Date Guero Colunga DO PCP - General Internal Medicine 03/22/19 04/18/23 Amber Montesinos RN Physician Office Assistant Transplant 11/17/19 Jil Duncan MD Consulting Physician Infectious Diseases 01/10/20 Anita Gillespie MD Medical Oncologist/Cover Cutter Medical Oncology 10/07/20 Tabitha Hurley MD [address] [facility] [address] [place] [address] Consulting Physician Rheumatology 10/22/21 documented as of this encounter
--- OUTSIDE RECORDS SUMMARY | 2024-10-28 06:11 | XMS_ITS | Encounter Summary ---
Author Organization [facility] Healthcare Address [address] [place] [address] Care Team Providers Care Manpower Development Specialist Name Role Phone Guero Colunga Primary Care Provider [phone] Amber Montesinos RN Unavailable [phone] Jil Duncan MD Unavailable [phone] Anita Gillespie MD Unavailable [phone] Tabitha Hurley MD Unavailable [phone] Massiel Gastelum MD Unavailable [phone] Encounter Details Date Type Department Care Team (Late st Contact Info) Description 08/11/2022 Telephone Radiology [address] [place] [address] Kristine Arrington, RT Social History Tobacco Use Types Packs/Day Years [...] on file 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 Pt was supposed to get them yesterday so sent msg to [facility] to check on status. * Telephone Encounter - Chica Mcgovern RN - 08/27/2022 9:28 AM CDT Called pt to review pre-procedure instructions and assess for any questions. LVM asking for return call. * Telephone Encounter - Chica Mcgovern RN - 08/26/2022 11:54 AM CDT PRE-PROCEDURE SCREENING Risk Level of Procedure: High Procedure: US Guided Random Liver Biopsy Date of Procedure if scheduled: 08/31/22 Indication for Procedure: Elevated LFTs Planned Level of Sedation: Min Sedation Patient Post-Procedure monitoring required: Yes - 2hr recovery Microbiology Orders in (if applicable) : Allergies: NKDA Infection Flag: N/A Does the patient have any of the following medical conditions? Pt having Sinus Surgery on 08/28, and has been on Augmentin since 08/05 for Chronic pansinusitis - [place] aware Sedation: Previous problems with anesthesia or sedation? No Cardiovascular/Respiratory: h/o PE Most recent blood pressure (include date): 102/47 as of 07/12/2022 Home monitoring B/P? Lung: h/o smoking Renal/Liver/GI: h/o autoimmune hepatitis, h/o post-transplant lymphoproliferative disorder Bleeding/Clotting: None Most recent coag results: 08/08/22: IGT=489 PT/INR= PTT= Date of redraw (if applicable): Coags orders in on 08/11 Medications: * * * For blood thinners/antiplatelet agents, REVIEW MED REC AND LIST THEM APPROPRIATE * * * No thinners including ASA Patient & Procedure Risk Assessment Proceed with scheduling * Telephone Encounter - Murphy Kristinejennifer Powell, RT - 08/11/2022 10:54 AM CDT Message sent to Amber about US liver biopsy. Patient is scheduled for 08/31 at 10:30am. Not on blood thinners, will get updated labs prior to biopsy date per protocol. US or CT PRE-BIOPSY INSTRUCTIONS [facility] ~Please provide to patient at time of scheduling~ Patient will need to arrive 1.5 hours prior to appointment time. Report to the [facility]). Park in the [facility], walk over in the walkway and report to Outpatient Admitting &Registration (to the right of the fountain in the lobby). Patient will need to have 'nothing by mouth' (NPO) 6 hours prior to procedure time. MEDICATIONS Pt may take medications as prescribed with the exception of: ANTICOAGULANTS (Blood thinner medications-includes aspirin 325mg): REFERRING OFFICE is responsible for contacting prescriber and ensuring that recommended hold is appropriate. Nurse Coordinators for Biopsy section will forward an ANTICOAGULANT CLEARANCE form to referring office for completion. Referring office to return completed form to Radiology Fax to [phone] (Attn: Kelly). ANTIHYPERGLYCEMICS (Blood sugar medications): 1) Pt should contact prescriber of the diabetic medication(s) to ask how they should be taken whilept is NPO. Pt will have no food or water for about 10 hours. 2) Schedule should also include when/how antihyperglycemic medication is to be restarted after biopsy. Pt should: Have had a CBC, PT/INR and PTT completed within the 30 days prior to the procedure date, and results either in EPIC or faxed to [phone] Attn: Gabriela If pt has to hold an anticoagulant, please have them get PT/INR and PTT drawn after they have held the medication. Pack a small overnight bag (in case observation/admission is needed). Have a route delivery service driver (to and from the procedure) that is a friend or family member, and who preferably canstay with the pt overnight at home, to monitor for bleeding/symptoms post-procedure. May have Uber/Lyft as long as you have someone with you (especially with sedation). If they are getting local only, they can go alone with uber/lyft but will need someone at home with patient Expect to be here for at least 4 hours from start of procedure to end of recovery period. COVID TESTING: (must be done within 72 HOURS of biopsy) NEED TEST IF unvaccinated for COVID ('vaccinated' includes booster) and having: --RENAL (KIDNEY) biopsy that requires stay on 3500 post-procedure --SPLEEN biopsy that requires stay on 3500 post-procedure --REQUIRE USE OF CPAP to breathe comfortably during procedure. [Pt will lay flat for about 30-45 minute, during most procedures.] DO NOT NEED COVID TEST IF ASYMPTOMATIC AND FULLY COVID VACCINATED documented in this encounter Plan of Treatment Scheduled Procedures Name Priority Associated Diagnoses Date/Ti me COLONOSCOPY Encounter for screening for colorectal cancer in high risk patient Family history of rectal cancer documented as of this encounter Visit Diagnoses Not on filedocumented in this encounter Care Teams Manpower Development Specialist Relationship Specialty Start Date End Date Guero Colunga DO PCP - General Internal Medicine 03/22/19 04/18/23 Amber Montesinos RN Card Scraper Transplant 11/17/19 Jil Duncan MD Consulting Physician Infectious Diseases 01/10/20 Anita Gillespie MD Medical Oncologist/Soft Crab Shedder Medical Oncology 10/07/20 Tabitha Hurley MD [address] [facility] 14 [place] [address] Consulting Physician Rheumatology 10/22/21 Massiel Gastelum MD [address] [place] [address] Consulting Physician Otolaryngology 08/27/22 documented as of this encounter
--- OUTSIDE RECORDS SUMMARY | 2024-10-28 06:11 | XMS_ITS | Encounter Summary ---
Author Organization [facility] Healthcare Address [address] [place] [address] Care Team Providers Care Practical Nurse Name Role Phone Guero Colunga Primary Care Provider [phone] Amber Montesinos RN Unavailable [phone] Jil Duncan MD Unavailable [phone] Anita Gillespie MD Unavailable [phone] Tabitha Hurley MD Unavailable [phone] Massiel Gastelum MD Unavailable [phone] Reason for Visit * Auth/Cert Specialty Diagnoses / Procedures Referred By Contac t Referred To Contact Diagnoses Chronic pansinusitis Immunocompromised patient (HCC) Chronic pansinusitis [J32.4] Immunocompromised patient (CMS/HCC) (HCC) [D84.9] Procedures CA NASAL/SINUS ENDOSCOPY,RMV TISS MAXILL SINUS CA NASAL/SINUS NDSC TOT W/FRNT SINS EXPL TISS RMVL CA NASAL/SINUS ENDOSCOPY,SPHENOIDOTOMY CA STEREOTACTIC COMP ASSIST PROC,CRANIAL,EXTRADURAL ENDOSCOPIC SINUS SURGERY WITH NAVIGATION ENDOSCOPIC FRONTAL SINUSOTOMY FUSION NAVIGATION - BILATERAL Massiel Gastelum MD [address] [place] [address] Phone: tel: fax: Referral ID Status Reason Start Date Expiration Date Visits Re quested Visits Authorized [id number] 08/04/2022 1 1 Encounter Details Date Type Department Care Team (Latest Contact Info) Description 08/28/2022 5:12 AM CDT - 08/28/2022 2:02 PM CDT Hospital Encounter [facility] [address] [place] [address] Massiel Gastelum MD [address] [place] [address] Chronic pansinusitis; Immunocompromised patient (CMS/HCC) ([facility]) Discharge Disposition: Discharge to home or self [...] file 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 ? Nasal congestion, fullness, [...] schedule a visit. APPOINTMENTS: ? [facility] ([facility]) Call our office or go to the Emergency Room immediately if you have any of the following: - Any vision problems/changes - Fever over 101.4 - Neck stiffness - Heavy or prolonged bright red bleeding from the nose ? After hours: and ask for the Ear, Nose and Throat (ENT) resident dock operations supervisor. * Attachments The following attachments cannot be sent through Care Everywhere. * [facility] PATHWAY TO EXCELLENT CARE AFTER SURGERY documented [...] AM CDT Source Note - Nisha Vargas NP - 08/18/2022 11:06 AM CDT Images from the original note were not included. Center for Preoperative Assessment and Planning Preoperative Evaluation Record Evaluation type/location: TPAP from [facility] Planned procedure site: [facility] CAM OR (Pod 4) Date: 08/18/22 NOTE: [...] refractory ITP s/p splenectomy 2012. 08/18/2022 Plt Xn=[id number] Gastrointestinal GI system: negative Renal / Renal/ system: negative Musculoskeletal/Pain Pertinent negatives: chronic pain Musculoskeletal/Pain system: negative Endocrine / Other + Cancer history- in remission and s/p chemo. Cancer type: 2018 Non-Hodgkins Lymphoma S/p chemotherapy x6 months. 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 Has F/u with [facility] Liver Transplant Team.) - liver. Pertinent negatives: [...] provided by telephone and electronically sent via [employer]. Patient verbalized understanding of preoperative plan. Patient's COVID19 status is: Unexposed. The patient currently has no concerning symptoms of COVID19. . Patient's COVID-19 vaccination status is Up to date with 1 J&J vaccine & 1 mRNA vaccine.Documentation of vaccination status is available in the Epic Immunization tab. . Plan for pre-procedure COVID19 [...] ??? Community acquired pneumonia ??? Lymphadenopathy ??? USP current use of immunosuppressive drug ??? Cytomegalovirus [...] Transplant: 03/03/1999 (Liver) Discharge: ICD10: Z94.4 Transplant: [facility] ([place], [place]) traZODone (DESYREL) 50 mg tablet () [...] 03/12/2020 JSCostantialmas RN No interactions noted. 03/15/2020 Rosemarie RN No med interactions 03/25/2020 No severe interactions noted 12/20/2021 FLORENTINC RN 12/27/21 No severe interaction noted upon review Lesvia Gallegoss FLIGHT KITCHEN MANAGER 01/24/2022 No severe interactions or contraindications noted. [facility] RN No current facility-administered medications for this [...] Chronic pansinusitis [J32.4] * Immunocompromised patient (CMS/HCC) ([facility]) [D84.9] POSTOPERATIVE DIAGNOSIS: Post-op Diagnosis * Chronic pansinusitis [J32.4] * Immunocompromised patient (CMS/[facility]) ([facility]) [D84.9] PROCEDURE: ENDOSCOPIC SINUS SURGERY WITH NAVIGATION [...] deviated bone was dissected with the open [place] forceps. The cartilage was not dissected [...] decision was made to resect the left middleturbinate to improve access and avoid lateralization postoperatively. The turbinate was then incised sharply adjacent to the base extending to the root. The root of the middle turbinate was cauterized with the suction cautery. The ethmoid dissection was followed posteriorly and the superior turbinate was identified. The Onodi cell on the left was superior to the sphenoid. The synovial cell was identified superior to the middle turbinate. The opening was carefully widened, confirming location with the image guidance. Medial to the superior turbinate, the sphenoidotomy was identified. This was widened with the [place] and mushroom punch. A small portion of bone was carefully divided betweenthe sphenoid and onodi cell. The posterior lateral ethmoid cell was identified and the skull base was then followed from posterior to anterior. The lateral [...] PM * Pre-Procedure Instructions - Nisha Vargas BEHAVIORAL SCIENCE CHAIR - 08/18/2022 11:12 AM CDT Center for Preoperative Assessment and Planning CPAP Clinic Location: [facility] The night before your surgery: [...] your family. * If having surgery at [facility], you may want to bring a credit card if you want to use our Mobile Pharmacy for your discharge medications. Mobile pharmacy is not available at [facility], the Orthopedic Center, or [facility] [place] [facility]. 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 Use an alcohol- based hand police department secretary that contains at least 60% alcohol if [...] your insurance card, a photo ID (example: Dean Of Admissions's License) and a method of payment for [...] Chart. If you are having surgery at [facility], please arrive on the day of [...] Pathway to Excellent Care by the followinglink: [email or web address] How To Prepare Your Skin [...] Remove nail coverings, artificial nails and nail chinese. The Morning of Surgery: Take a shower [...] 20 seconds. Use an alcohol- based hand police department secretary that contains at least 60% alcohol if soap and water are not available. These are general guidelines, but if have been told by a physician that you should not perform any of the above, please follow physician's guidelines. If you have questions, please call the CPAP Staff at [phone], Wednesday-Wednesday 8am-4:30pm. All patients should read the below section: All visitors/patients are being asked to wear a clean face mask when entering the hospital. COVID 19 Updates & Visitor Policy: Please access [email or web address] for the most updated information. Information on [facility]: Please view [email or web address] (Patient & Visitor Information) for additional details regarding Advanced Directive forms, AWARE, directions, parking information, lodging, Internet access, dining and more. Information on [facility] or [facility] ([facility]): Please view [email or web address] (Patient and Visitor Information) for parking/directions and more. For MyChart information, to activate account or password recovery, please go to [email or web address] or call [phone] (toll-free: [phone]). Information for Suicide Prevention: National Suicide Prevention Lifeline (8-130- 238-SWIK (4844)). Surgery Times: For patients having surgery @ [facility], [facility], [facility] or [facility] ([facility]), if your surgeon's office has not notified you of your surgery time by NOON THE BUSINESS DAY BEFORE your surgery, please call [phone] and ask for your surgeon's office Dr [...] Case Notes 08/04: DPC, email to Nisha -RUSSELL08/04: Reschedule to 08/28/22 POD 4 Special Needs Fusion navigation ENDOSCOPIC SINUS SURGERY WITH NAVIGATION 08/28/2022 7:25 AM CDT Chronic pansinusitis Immunocompromised patient (CMS/HCC) (HCC) Case Notes 08/04: FARHANA, email to Nisha EspinozaRUSSELL08/04: Reschedule to 08/28/22 POD 4 Special Needs Fusion navigation documented in this encounter Results * Surgical pathology (08/28/2022 11:40 AM CDT) Tissue (Sinus contents) 08/28/2022 11:40 AM CDT Narrative PATHOLOGY [facility] - 09/03/2022 11:28 AM CDT EPIC results best viewed via link to PDF [facility] Yulisa Garcia [facility] [place] [address] Note to Patients: This report may contain [...] Gender: ??M : ??1995 (Age: 27) Address: ??[address] [place] [address] ??[id number] Hospital #: ??[id number] Taken:08/28/2022 Received:08/28/2022 Reported: 09/03/2022 Patient Type: BJ SDS ?? Service: Surgery Location: Physician(s): ??Stephon Cervantes D.O. Andrew Jacob Charap, MD Ricardo J. Ramirez, M.D. Diagnosis: A. [...] with intermixed blood clot and bony fragments. ??Oil Distributor sections are submitted. ??Labeled A1. ??decal 1. [...] Surgical Pathology and Flow Cytometry Departments at [facility] as part of an ongoing software quality tester program and in compliance with federally mandated [...] Surgical Pathology and Flow Cytometry Departments of [facility]. ??It has not been cleared or approved by the U. S. Food and Drug Administration. IMAGES AND SCANNED DOCUMENTS, IF INCLUDED, ONLY VIEWABLE IN PDF VERSION OF REPORT Massiel Gastelum MD LAB PATHOLOGY ORDERABL ES Final Result PATHOLOGY [facility] 3rd Floor [place], [place] [phone] documented in this encounter Visit Diagnoses Diagnosis Chronic pansinusitis Other chronic sinusitis Immunocompromised patient (HCC) documented in this encounter Admitting Diagnoses Diagnosis Chronic pansinusitis Other chronic sinusitis Immunocompromised patient (HCC) documented in this encounter Administered Medications Inactive Administered Medications - up to 3 most recent administrations Medication Order MAR Action Action Date Dose Rate Site Lactated Ringer's (LR) infusion 30 mL/hr, intravenous, Continuous, Starting on Wed08/28/22 at 0615 Restarted 08/28/2022 11:16 AM CDT New Bag 08/28/2022 7:24 AM CDT 30 mL/hr documented in this encounter Active and [...] Count Last Ordered Date First Ordered Date bupivacaine-EPINEPHrine (MAR ROLANDO with EPI) 0.5 %-1:200,000 preservative free injection 1 08/28/2022 Carrier Fluids for Secondary Infusion - 0.9% Sodium Chloride 1 08/28/2022 ceFAZolin (ANCEF) 2,000 mg/2 0 mL in sterile water (premix) 2,000 mg 1 08/28/2022 fentaNYL (SUBLIMAZE) preserv ative free injection 50 mcg 1 08/28/2022 HYDROmorphone (DILAUDID) injection 0.2 mg 1 08/28/2022 HYDROmorphone (DILAUDID) injection 0.4 mg 1 08/28/2022 Lactated Ringer's (LR) infusion 1 2 naloxone (NARCAN) 0.4 mg/mL injection 0.04-0.4 mg 1 08/28/2022 oxymetazoline (AFRIN) 0.05 % nasal spray 1 08/28/2022 sodium chloride 0.9% flush 0.5-20 mL 1 08/02 sodium chloride 0.9% irrigation 2 2 Discharge Count Last Ordered Date First Orde red Date DISCHARGE PATIENT 1 08/28/2022 documented in this encounter Care Teams Practical Nurse Relationship Specialty Start Date End Date Cristine GueroDO PCP - General Internal Medicine 03/22/19 04/18/23 Amber Montesinos, SHAILESH Sales Department Supervisor Transplant 11/17/19 Jil Duncan MD Consulting Physician Infectious Diseases 01/10/20 Anita Gillespie MD Medical Oncologist/Livestock Laborer Medical Oncology 10/07/20 Tabitha Hurley MD [address] [place] [address] Consulting Physician Rheumatology 10/22/21 Massiel Gastelum MD [address] [place] [address] Consulting Physician Otolaryngology 08/27/22 documented as of this encounter
--- OUTSIDE RECORDS SUMMARY | 2024-10-28 06:11 | XMS_ITS | Encounter Summary ---
Author Organization [facility] Address [address] [place] [address] Phone Care Team Providers Care Physician Assistant Certified Name Role Phone Guero Colunga DO Primary Care Provider [phone] Amber Montesinos RN Unavailable [phone] Jil Duncan MD Unavailable [phone] Anita Gillespie MD Unavailable [phone] Tabitha Hurley MD Unavailable [phone] Encounter Details Date Type Department Care Team (Late st Contact Info) Description 07/28/2022 12:00 PM CDT Telemedicine [facility] ENT [address] [facility] [address] [place] [address] Massiel Gastelum MD [address] [facility] [address] [place] [address] Chronic pansinusitis (Primary Dx); Immunocompromised patient (CMS/HCC) (HCC) Social History Tobacco [...] on file 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 Otolaryngology Established Telehealth Note Subjective Patient ID: Beka Nichols is a 27 y.o. male. Chief Complaint: No chief complaint on file. HPI: Beka Nichols is a 27 y.o. male with h/o liver transplant, PTLD, CVID, and CMV viremia, initially referred by Dr. Gillespie, here for follow-up of recurrent sinusitis. He was last seen by me 04/07/22 via telehealth. He was hospitalized 07/09/22 for worsening sinonasal symptoms with concurrent fever and night sweats. Positive rhinovirus, enterovirus, adenovirus. CT withpersistent chronic pansinusitis, no complications of sinusitis. Today: Pt reports intermittent yellow drainage through his eyes. Recurrent ear infections over past months. Some difficulty breathing through his nose currently and at baseline. Post-nasal drainage and cough. Thick nasal mucus. No epistaxis, though some blood mixed in mucus. Some facial pressure. Symptoms improve on antibiotics and then worsen when off antibiotics. 5 day course abx after hospital discharge. Concerned for worsening, hasn't happened yet. Has not been using saline irrigation consistently. When uses, productive of thick mucus. Prior use of budesonide c/b dryness and nosebleed. Stopped the saline and the steroid. H/o epistaxis with steroid nasal spray in the past. Currently not using any allergy mediations. Rare use of Claritin, minimal benefit. Over the winter and spring, he was treated with multiple courses of abx including Augmentin, Levaquin. He temporarily did better over late spring and summer months. 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 H/o nasal fracture 06/16/21. Recurrent sinus infection issues pre-date this injury. Unclear whether breathing is more difficult or not after this injury. Followed by Dr. Duncan in Infectious Disease for CMV Review of Systems The patient-completed Review of Systems was reviewed and was scanned as an attachment to this encounter. Objective There were no vitals taken for this visit. Physical Exam GENERAL: Well-developed, well-nourished. Voice quality is normal. NEURO/PSYCH: Cranial nerves II-XII are grossly normal. Affect is normal. Alert and oriented. EYES: Extraocular muscles are intact. HEAD/FACE: Normocephalic; atraumatic. No facial skin lesions. Facial strength is 5/5 and the face is symmetric. No visible parotid masses or enlargement. EARS: Hearing is grossly intact. NOSE: External nose has no skin lesions. ORAL CAVITY/OROPHARYNX: Normal oral vestibule without lesions, masses, or ulcerations. NECK: No visible masses or lymphadenopathy. MUSCULOSKELETAL: Neck full range of motion. RESPIRATORY: Breathing comfortably without audible stridor, stertor or wheeze. Speaking in full sentences. No coughing. Reviewed CT from 07/09/22 with patient's mother on Zoom (pt unable to observe images). Images and report independely reviewed by me. Pansinusitis with left > right mucosal thickening. IMPRESSION: 1. Mucosal thickening has progressed within the sphenoid sinuses and right maxillary sinus and improved within the frontal sinuses and ethmoid air cells. No noncontrast CT evidence of complication. Assessment/Plan 1. Chronic pansinusitis 2. Immunocompromised patient ([facility]/HCC) ([facility]) We discussed the risks, benefits, and alternatives for functional endoscopic sinus surgery (FESS) including bilateral maxillary antrostomy, bilateral total ethmoidectomy, bilateral frontal sinusotomyand bilateral sphenoidotomy with image guidance navigation. The risks include, but are not limited to, pain, bleeding, scarring, CSF leak, orbital injury, continued nasal congestion and/or need for nasal medications, continued recurrent/chronic sinusitis and need for general anesthesia. Discussed the expected post-operative course and need for close post-operative follow-up with intra-nasal examinations. Patient expressed intention to schedule surgery. Follow-up at time of surgery. Michael Gastelum MD FACS Professor Department of Otolaryngology [facility] This was a telemedicine visit with Beka Nichols and his mother Brooklynn which took place via Real-time video connection (InTouch, Zoom or similar). During the visit, I was located at home and the patient was located in his car and his mother was located at home in the state of [place]. The patient visit started at 12:04 and ended at 12:26. My total encounter time on 07/28/2022 was 28 minutes which was spent in the activities [...] a telephone or video visit during the [facility] explained to them. After being given an opportunity to ask questions about and discuss this type of visit, they verbally consented to proceeding with the telephone/video visit and understand thatthis service replaces an office visit. documented in this encounter Plan of Treatment Scheduled Procedures Name Priority Associated Diagnoses Date/Ti me COLONOSCOPY Encounter for screening for colorectal cancer in high risk patient Family history of rectal cancer documented as of this encounter Visit Diagnoses Diagnosis Chronic pansinusitis- Primary Other chronic sinusitis Immunocompromised patient (HCC) documented in this encounter Care Teams Physician Assistant Certified Relationship Specialty Start Date End Date Guero Colunga DO PCP - General Internal Medicine 03/22/19 04/18/23 Amber Montesinos, SHAILESH Chemistry Lab Instructor Transplant 11/17/19 Jil Duncan MD Consulting Physician Infectious Diseases 01/10/20 Anita Gillespie MD Medical Oncologist/Chef De Cuisine Medical Oncology 10/07/20 Tabitha Hurley MD [address] [facility] [address] [place] [address] Consulting Physician Rheumatology 10/22/21 documented as of this encounter
--- OUTSIDE RECORDS SUMMARY | 2024-10-28 06:11 | XMS_ITS | Encounter Summary ---
Author Organization [facility] Healthcare Address [address] [place] [address] Care Team Providers Care Pharmacy Technician Program Director Name Role Phone Guero Colunga Primary Care Provider [phone] Amber Montesinos RN Unavailable [phone] Jil Duncan MD Unavailable [phone] Anita Gillespie MD Unavailable [phone] Tabitha Hurley MD Unavailable [phone] Massiel Gastelum MD Unavailable [phone] Encounter Details Date Type Department Care Team (Late st Contact Info) Description 12/17/2022 Documentation [facility] Operating Room [address] [place] [id number] Massiel Gastelum MD [address] [place] [address] Social History Tobacco Use Types Packs/Day Years [...] on file 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 DENT ADVISOR documented in this encounter Plan of Treatment Scheduled Procedures Name Priority Associated Diagnoses Date/Ti me COLONOSCOPY Encounter for screening for colorectal cancer in high risk patient Family history of rectal cancer documented as of this encounter Visit Diagnoses Not on filedocumented in this encounter Care Teams Pharmacy Technician Program Director Relationship Specialty Start Date End Date Guero Colunga DO PCP - General Internal Medicine 03/22/19 04/18/23 Amber Montesinos RN Sports Commentator Transplant 11/17/19 Jil Duncan MD Consulting Physician Infectious Diseases 01/10/20 Anita Gillespie MD Medical Oncologist/Mastic Man Medical Oncology 10/07/20 Tabitha Hurley MD [address] [place] [address] Consulting Physician Rheumatology 10/22/21 Massiel Gastelum MD [address] [place] [address] Consulting Physician Otolaryngology 08/27/22 documented as of this encounter
--- OUTSIDE RECORDS SUMMARY | 2024-10-28 06:11 | XMS_ITS | Encounter Summary ---
Author Organization [facility] Healthcare Address [address] [place] [address] Care Team Providers Care Pocket Maker Name Role Phone Guero Colunga Primary Care Provider [phone] Amber Montesinos RN Unavailable [phone] Jil Duncan MD Unavailable [phone] Anita Gillespie MD Unavailable [phone] Tabitha Hurley MD Unavailable [phone] Massiel Gastelum MD Unavailable [phone] Encounter Details Date Type Department Care Team (Late st Contact Info) Description 08/28/[address] 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 Mom stating that patient was unable to go yesterday as he did not get off work in time. Received message from SHAILESH Ochoa coordinator with IR, regarding patient's coags. Since patient was unable to complete them prior to his appointment, she has made a lab appointment for him to get them prior to his biopsy on Wednesday. Lab order updated in [place]. Let mom know to please tell who is registering him on Wednesday that he needs pre procedure PT/INR and PTT done. documented in this encounter Plan of Treatment Scheduled Procedures Name Priority Associated Diagnoses Date/Ti me COLONOSCOPY Encounter for screening for colorectal cancer in high risk patient Family history of rectal cancer documented as of this encounter Results * Protime-INR (08/31/2022 8:46 AM CDT) PT 11.3 9.2 - 13.5 sec [facility] INR 1.0 0.9 - 1.2 [facility] Comment: Interpretive data Oral anticoagulant therapeutic ranges: Venous thromboembolism prophylaxis or treatment: 2.0-3.0 CARDIOLOGY Standard range: 2.0-3.0 High-intensity range: 2.5-3.5 Refer to indication-specific guidelines for appropriate target ranges for prosthetic heart valve replacement. Current interpretive data was last revised on 2019. Blood 08/31/2022 8:46 AM CDT 08/31/2022 8:58 AM CDT Theodore Gresham MD LAB BLOOD ORDERABLES Final Result [facility] Department [place] [address] * aPTT (08/31/2022 8:46 AM CDT) aPTT 30 27 - 37 sec [facility] Comment: Interpretive Data Therapeutic heparin range: 60.0 - 94.0 seconds. Based on correlation with therapeutic heparin activity range of 0.3-0.7 Units/mL. Current interpretive data was last revised on 2020. Blood 08/31/2022 8:46 AM CDT 08/31/2022 8:58 AM CDT us Theodore Gresham MD LAB BLOOD ORDERABLES Final Result Performing Organization Address [facility] Co de Phone Number [facility] Department [place] [address] documented in this encounter Visit Diagnoses Diagnosis History of liver transplant (CMS/HCC) (HCC)- Primary Liver replaced by transplant LFT elevation Pre-procedure lab exam Pre-procedural laboratory examination documented in this encounter Care Teams Pocket Maker Relationship Specialty Start Date End Date Guero Colunga DO PCP - General Internal Medicine 03/22/19 04/18/23 Amber Montesinos RN Cable Respooler Transplant 11/17/19 Jil Duncan MD Consulting Physician Infectious Diseases 01/10/20 Anita Gillespie MD Medical Oncologist/Shoe Polisher Medical Oncology 10/07/20 Tabitha Hurley MD [address] [facility] [address] [place] [address] Consulting Physician Rheumatology 10/22/21 Massiel Gastelum MD [address] [place] [address] Consulting Physician Otolaryngology 08/27/22 documented as of this encounter
--- OUTSIDE RECORDS SUMMARY | 2024-10-28 06:11 | XMS_ITS | Encounter Summary ---
Author Organization [facility] Address [address] [place] [address] Phone Care Team Providers Care Button Tufter Name Role Phone Guero Colunga DO Primary Care Provider Amber Montesinos RN Unavailable [phone] Jil Duncan MD Unavailable [phone] Anita Gillespie MD Unavailable [phone] Tabitha Hurley MD Unavailable [phone] Massiel Gastelum MD Unavailable [phone] Reason for Visit * Reason Comments Post-op * Consultation (Routine) - Closed Specialty Diagnoses / Procedures Referred By Contac t Referred To Contact Otolaryngology Diagnoses 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) Frequent sinus infections Anita Gillespie MD Phone: tel: fax: Massiel Gastelum MD [address] [place] [address] Phone: tel: fax: Referral ID Status Reason Start Date Expiration Date V isits Requested Visits Authorized [id number] Closed Specialty Services Required 10/28/2021 11/27/2022 99 99 Encounter Details Date Type Department Care Team (Late st Contact Info) Description 09/07/2022 10:20 AM CLINICAL NEUROPSYCHOLOGIST Office Visit [facility] ENT [address] [facility] Medical Office Building [address] [place] [address] Massiel Gastelum MD [address] [facility] [address] [place] [address] Chronic pansinusitis (Primary Dx); Immunocompromised patient (CMS/HCC) (HCC); Status post functional endoscopic sinus surgery (FESS) Social History Tobacco Use Types Packs/Day Years [...] file 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 Gender Identity Not on file Sexual Orientation Straight 08/22/2021 9: 23 AM CDT documented as of this encounter Patient Instructions * Patient Instructions* Massiel Gastelum MD - 09/07/2022 10:20 AM CLINICAL NEUROPSYCHOLOGIST Oral steroid (prednisone) for 12 day Oral antibiotic ICAL NEUROPSYCHOLOGIST documented in this encounter Ordered Prescriptions Prescription Sig Dispense Quantity Refills Last Filled Start Date End Date levoFLOXacin (Levaquin) 500 mg tablet Take 1 tablet (500 mg total) by mouth daily for 14 days 14 tablet 09/07/2022 09/21/2022 predniSONE (DELTASONE) 10 mg tablet 40 mg for 3 days, 30 mg for 3 days, 20 mg for 3 days 10 mg for 3 days 30 tablet 09/07/2022 12/30/2022 documented in this encounter Progress Notes * Massiel Gastelum MD - 09/07/2022 10:20 AM CST Otolaryngology Post-operative follow-up Note Subjective [...] chronic rhinosinusitis and re current acute exacerbations. At the time of surgery, he was noted to have generalized edematous and friable mucosa throughout his sinuses. Septum deviated to the left, narrowing access to the middle meatus. Left middle turbinateresected. Since surgery, he is overall doing well. Initial facial pressure and pain, improving. Right then left ear feeling clogged over past few days. Bloody mucus with saline irrigation. No epistaxis Feels nasal drainage posteriorly. Some cough, occ productive. He is followed by Dr. Gillespie in [...] no skin lesions. Hearing is grossly intact. Right - EAC patent. TM intact. Middle ear mucoid effusion. Left - EAC patent. TM intact. Middle ear mucoid effusion. NOSE: External nose has no skin [...] right and left nasal cavity. Nasal mucosa is edematous. Purulent secretions not seen. Right thick clot removed with Jigna forceps and suction. Middle turbinate medialized. Maxillary antrostomy with thick mucus. Edema of the superior ethmoid. Mild bleeding with manipulation along the anterior inferior turbinate, controlled with Afrin spray. The left nasal cavity is more narrow with edema between the septum and lateral wall, limiting access. Friable mucosa, slightly bleeding. Mucus suctioned from the nasal cavity, not purulent. Clot visible in the posterior aspect of the middle meatus, root of the middle turbinate, not able to be debrided due to poor visualization. Mucus suctioned from the maxillary antrostomy. Spheno-ethmoid recess normal. Nasopharynx has no masses, obstructing adenoids or polyps. The endoscope was removed and the patient tolerated the procedure well. Pathology Reviewed: Diagnosis: A. Paranasal sinuses, bilateral, extraction - Chronic inflammation Assessment/Plan 1. Chronic pansinusitis 2. Immunocompromised patient (CMS/HCC) (HCC) 3. Status post functional endoscopic sinus surgery (FESS) Levaquin x 14d Prednisone taper Resume budesonide nasal irrigation Discussed intraoperative findings and recommendation for continued close monitoring. Plan [id number] weeks Michael Gastelum MD FACS Professor Department of Otolaryngology [facility] ICAL NEUROPSYCHOLOGIST documented in this encounter Plan of Treatment Scheduled Procedures Name Priority Associated Diagnoses Date/Ti me COLONOSCOPY Encounter for screening for colorectal cancer in high risk patient Family history of rectal cancer documented as of this encounter Visit Diagnoses Diagnosis Chronic pansinusitis- Primary Other chronic sinusitis Immunocompromised patient (HCC) Status post functional endoscopic sinus surgery (FESS) documented in this encounter Care Teams Button Tufter Relationship Specialty Start Date End Date Guero Colunga DO PCP - General Internal Medicine 03/22/19 04/18/23 Amber Montesinos, RN Thermodynamics Teacher Transplant 11/17/19 Jil Duncan MD Consulting Physician Infectious Diseases 01/10/20 Anita Gillespie MD Medical Oncologist/Storm Chaser Medical Oncology 10/07/20 Tabitha Hurley MD [address] [facility] [address] [place] [address] Consulting Physician Rheumatology 10/22/21 Massiel Gastelum MD [address] [place] [address] Consulting Physician Otolaryngology 08/27/22 documented as of this encounter
--- OUTSIDE RECORDS SUMMARY | 2024-10-28 06:11 | XMS_ITS | Encounter Summary ---
Author Organization [facility] Healthcare Address [address] [place] [address] Care Team Providers Care Utilization Management Nurse Name Role Phone Guero Colunga Primary Care Provider [phone] Amber Montesinos RN Unavailable [phone] Jil Duncan MD Unavailable [phone] Anita Gillespie MD Unavailable [phone] Tabitha Hurley MD Unavailable [phone] Encounter Details Date Type Department Care Team (Late st Contact Info) Description 07/15/2022 Documentation [facility] Transplant Liver [address] [address] [id number] [place], [place] [id number] Amber Montesinos RN Social History Tobacco Use [...] on file 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 Gresham regarding patient's discharge from the hospital and if any follow up is needed for the liver transplant office. Patient's mother reporting via [employer] that ID has requested for him to repeat his labs this weekend so they will request our standing order done as well. documented in this encounter Plan [...] documented as of this encounter Care Teams Utilization Management Nurse Relationship Specialty Start Date End Date Guero Colunga DO PCP - General Internal Medicine 03/22/19 04/18/23 Amber Montesinos RN Five Roll Refiner Batch Mixer Transplant 11/17/19 Jil Duncan MD Consulting Physician Infectious Diseases 01/10/20 Anita Gillespie MD Medical Oncologist/Product Grader Medical Oncology 10/07/20 Tabitha Hurley MD [address] [facility] [address] [place] [address] Consulting Physician Rheumatology 10/22/21 documented as of this encounter
--- OUTSIDE RECORDS SUMMARY | 2024-10-28 06:11 | XMS_ITS | Encounter Summary ---
Author Organization [facility] Address [address] [place] [address] Phone Care Team Providers Care Administrative Office Manager Name Role Phone Guero Colunga DO Primary Care Provider [phone] Amber Montesinos RN Unavailable [phone] Jil Duncan MD Unavailable [phone] Anita Gillespie MD Unavailable [phone] Tabitha Hurley MD Unavailable [phone] Encounter Details Date Type Department Care Team (Late st Contact Info) Description 07/13/2022 Telephone [facility] Oncology [address] [facility] 7th [place] [address] [place] [address] Samreen Greene RN Social History Tobacco Use Types Packs/Day [...] file 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 Contact (call, Fleet Management Holdinghart message, [id number]): completed Discharge Planning Review Care Coordination Note Reviewed: No, Describe note not complete New equipment: continue home mirabivir while resistance panel pending New Treatment: see medications Patient received growth factor? No growth factor ordered. Appointments reviewed with patient. Next return office visit eligible for TCV: No, Describe TCV notelligible; will f/u with transplant pending resistance panel results Issues with: Side Effects? Rhino and adeno symptoms improving Discharge Planning? Yes, details: notes not complete for review Financial toxicity? Denies Medication Review: Changes include: augmentin Received all discharge medications: Yes Patient has antiemetics available? ondansetron (Zofran) and prochlorperazine (Compazine) Is the patient on a research study with a research oral medication? no HRPO#: N/A documented in this encounter Plan of Treatment [...] documented as of this encounter Care Teams Administrative Office Manager Relationship Specialty Start Date End Date Guero Colunga DO PCP - General Internal Medicine 03/22/19 04/18/23 Amber Montesinos, RN Investigation Division Lieutenant Transplant 11/17/19 Jil Duncan MD Consulting Physician Infectious Diseases 01/10/20 Anita Gillespie MD Medical Oncologist/Face Boss Medical Oncology 10/07/20 Tabitha Hurley MD [address] [facility] [address] [facility] [address] [place] [address] Consulting Physician Rheumatology 10/22/21 documented as of this encounter
--- OUTSIDE RECORDS SUMMARY | 2024-10-28 06:11 | XMS_ITS | Encounter Summary ---
Author Organization [facility] Address [address] [place] [address] Phone Care Team Providers Care Apartment Leasing Manager Name Role Phone Guero Colunga DO Primary Care Provider [phone] Amber Montesinos RN Unavailable [phone] Jil Duncan MD Unavailable [phone] Anita Gillespie MD Unavailable [phone] Tabitha Hurley MD Unavailable [phone] Encounter Details Date Type Department Care Team (Late st Contact Info) Description 08/11/2022 Telephone [facility] Infectious Diseases [address] [place] [address] Lili Nolasco RN Social History Tobacco [...] on file 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 Gender Identity Not on file Sexual Orientation Straight 08/22/2021 9: 23 AM CDT documented as of this encounter Miscellaneous Notes * Telephone Encounter - Lili Nolasco RN - 08/11/2022 9:47 AM CDT Lisandra - ledyi on CMV PCR in epic from 08/08 documented in this encounter Plan of Treatment Scheduled Procedures Name Priority Associated Diagnoses Date/Ti me COLONOSCOPY Encounter for screening for colorectal cancer in high risk patient Family history of rectal cancer documented as of this encounter Visit Diagnoses Not on filedocumented in this encounter Care Teams Apartment Leasing Manager Relationship Specialty Start Date End Date Guero Colunga DO PCP - General Internal Medicine 03/22/19 04/18/23 Amber Montesinos RN Manager Practice Transplant 11/17/19 Jil Duncan MD Consulting Physician Infectious Diseases 01/10/20 Anita Gillespie MD Medical Oncologist/Support Services Coordinator Medical Oncology 10/07/20 Tabitha Hurley MD [address] [facility] 14 [place] [address] Consulting Physician Rheumatology 10/22/21 documented as of this encounter
--- OUTSIDE RECORDS SUMMARY | 2024-10-28 06:12 | XMS_ITS | Encounter Summary ---
Author Organization [facility] Healthcare Address [address] [place] [address] Care Team Providers Care Farm Equipment Assembler Name Role Phone Guero Colunga Primary Care Provider [phone] Amber Montesinos RN Unavailable [phone] Jil Duncan MD Unavailable [phone] Anita Gillespie MD Unavailable [phone] Tabitha Hurley MD Unavailable [phone] Encounter Details Date Type Department Care Team (Late st Contact Info) Description 06/16/2022 Telephone [facility] Transplant Liver [address] [address] [phone] [place] [address] Amber Montesinos RN Social History [...] on file 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 May have also missed adose of tacrolimus. Reviewed with them that it is important for us to see updated labs on reduced dose of tacrolimus. He is planning on going this Wednesday. He will also need a repeat CMV PCR. * Telephone Encounter - Amber Vargas RN - 06/16/2022 3:50 PM CDT ----- Message from Beka Nichols sent at 06/16/2022 3:49 PM CDT ----- Regarding: blood work Yes he is planning on Wednesday documented in this encounter Plan of Treatment Scheduled Procedures Name Priority Associated Diagnoses Date/Ti me COLONOSCOPY Encounter for screening for colorectal cancer in high risk patient Family history of rectal cancer documented as of this encounter Visit Diagnoses Not on filedocumented in this encounter Care Teams Farm Equipment Assembler Relationship Specialty Start Date End Date Guero Colunga DO PCP - General Internal Medicine 03/22/19 04/18/23 Amber Montesinos, SHAILESH Junior Programmer Transplant 11/17/19 Jil Duncan MD Consulting Physician Infectious Diseases 01/10/20 Anita Gillespie MD Medical Oncologist/Social Worker School Medical Oncology 10/07/20 Tabitha Hurley MD [address] [address] Consulting Physician Rheumatology 10/22/21 documented as of this encounter
--- OUTSIDE RECORDS SUMMARY | 2024-10-28 06:12 | XMS_ITS | Encounter Summary ---
Author Organization [facility] Healthcare Address [address] [place] [address] Care Team Providers Care Distribution Center Associate Name Role Phone Guero Colunga Primary Care Provider [phone] Amber Montesinos RN Unavailable [phone] Jil Duncan MD Unavailable [phone] Anita Gillespie MD Unavailable [phone] Tabitha Hurley MD Unavailable [phone] Encounter Details Date Type Department Care Team (Late st Contact Info) Description 05/25/2022 Telephone [facility] Transplant Liver [address] [address] [phone] [place] [address] Amber Montesinos RN Social History [...] on file 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 Gresham. Plan to reduce tacrolimus to 0.5mg every other day. Labs should be collected on the morning he is supposed to take his 5th dose form the time he started every other day dosing. Placed call to patient to discuss. Patient reporting that he was unable to get labs over the weekend because he did not have enough time. Reviewed medication change recommended by Dr. Gresham. Discussed timing for next labs. Since patient can only go on Wednesday', he will go again on Jun 06. Hewould also like [employer]ia message sent to him so his mom can review as well. HazelMailt message sent. Reviewed to please keep track of his doses carefully so he does not miss any. Reviewed how to collect accurate trough level with every other day dosing. He will let us know if any questions. documented in this encounter Plan of Treatment Scheduled Procedures Name Priority Associated Diagnoses Date/Ti mo COLONOSCOPY Encounter for screening for colorectal cancer in high risk patient Family history of rectal cancer documented as of this encounter Visit Diagnoses Not on filedocumented in this encounter Discontinued Medications Medication Sig Discontinue Reason Start Date End Da te tacrolimus (PROGRAF) 0.5 mg immediate-release capsule Take 1 capsule (0.5 mg total) by mouth daily Reorder 12/08/2021 05/25/2022 documented as of this encounter Care Teams Distribution Center Associate Relationship Specialty Start Date End Date Guero Colunga DO PCP - General Internal Medicine 03/22/19 04/18/23 Amber Montesinos, RN Industrial Boilermaker Transplant 11/17/19 Jil Duncan MD Consulting Physician Infectious Diseases 01/10/20 Anita Gillespie MD Medical Oncologist/Bar Captain Medical Oncology 10/07/20 Tabitha Hurley MD [address] [facility] 14 [place] [address] Consulting Physician Rheumatology 10/22/21 documented as of this encounter
--- OUTSIDE RECORDS SUMMARY | 2024-10-28 06:12 | XMS_ITS | Encounter Summary ---
Author Organization [facility] Address [address] [place] [address] Phone Care Team Providers Care Braided Rug Maker Name Role Phone Guero Colunga DO Primary Care Provider [phone] Amber Montesinos RN Unavailable [phone] Jil Duncan MD Unavailable [phone] Anita Gillespie MD Unavailable [phone] Tabitha Hurley MD Unavailable [phone] Encounter Details Date Type Department Care Team (Late st Contact Info) Description 05/13/2022 7:30 AM CDT Lab [facility] [address] [facility] 7th [place] [address] [place] [address] 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) [...] on file Legal 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 Gender Identity Not on file Sexual [...] rst Ordered Date ONCBCN LAB APPOINTMENT 1 05/13/2022 documented in this encounter Care Teams Braided Rug Maker Relationship Specialty Start Date End Date Guero Colunga DO PCP - General Internal Medicine 03/22/19 04/18/23 Amber Montesinos, RN Child Support Investigator Transplant 11/17/19 Jil Duncan MD Consulting Physician Infectious Diseases 01/10/20 Anita Gillespie MD Medical Oncologist/Bulbs Farmworker Medical Oncology 10/07/20 Tabitha Hurley MD [address] [facility] 14 [place] [address] Consulting Physician Rheumatology 10/22/21 documented as of this encounter
--- OUTSIDE RECORDS SUMMARY | 2024-10-28 06:12 | XMS_ITS | Encounter Summary ---
Author Organization [facility] Healthcare Address [address] [place] [address] Care Team Providers Care Test Case Developer Name Role Phone Guero Colunga Primary Care Provider [phone] Amber Montesinos RN Unavailable [phone] Jil Duncan MD Unavailable [phone] Anita Gillespie MD Unavailable [phone] Tabitha Hurley MD Unavailable [phone] Encounter Details Date Type Department Care Team (Late st Contact Info) Description 04/20/2022 Telephone [facility] Transplant Liver [address] [address] [address] [phone] [place] [address] Eli Brink Social History Tobacco Use Types Packs/Day Years [...] on file Legal 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 If there is a change, please indicate the new insurance details below. If it is unchanged to what is already in Epic, simply warren each with N/A Primary Insurance: Patient ID#: Group#: Insurance Phone#: ?? Radiology Test Request Details ?? Need pre-cert for: MRI Abdomen MRCP W WO Contrast ?? Ordering physician: Theodore Gresham MD ) CPT Code: 97265,[id number] CPT Code description: MRI Abdomen MRCP W WO Contrast ?? ICD-10 Code: Z94.4, B25.9, R79.89, R17 ICD-10 Code description: History of liver transplant, Cytomegalovirus (CMV) viremia, LFT elevation,Elevated bilirubin ?? Patient is having test due to: History of liver transplant, Cytomegalovirus (CMV) viremia, LFT elevation, Elevated bilirubin Complications patient is having: LFT elevation, Elevated bilirubin Testing is to rule out the following: inflammation, obstruction bile duct When Scheduling, Obtain the following - What facility will test be done at: [facility] Facility's NPI: Facility's Tax ID: Facility's Address: Date(s) of test: 05/02/22 documented in this encounter Plan of Treatment Scheduled Procedures Name Priority Associated Diagnoses Date/Ti me COLONOSCOPY Encounter for screening for colorectal cancer in high risk patient Family history of rectal cancer documented as of this encounter Visit Diagnoses Not on filedocumented in this encounter Care Teams Test Case Developer Relationship Specialty Start Date End Date Guero Colunga DO PCP - General Internal Medicine 03/22/19 04/18/23 Amber Montesinos RN Castings Drafter Transplant 11/17/19 Jil Duncan MD Consulting Physician Infectious Diseases 01/10/20 Anita Gillespie MD Medical Oncologist/Hospice Superintendent Medical Oncology 10/07/20 Tabitha Hurley MD [address] [facility] [address] [address] Consulting Physician Rheumatology 10/22/21 documented as of this encounter
--- OUTSIDE RECORDS SUMMARY | 2024-10-28 06:12 | XMS_ITS | Encounter Summary ---
Author Organization [facility] Healthcare Address [address] [place] [address] Care Team Providers Care Armor Officer Name Role Phone Guero Colunga Primary Care Provider [phone] Amber Montesinos RN Unavailable [phone] Jil Duncan MD Unavailable [phone] Anita Gillespie MD Unavailable [phone] Tabitha Hurley MD Unavailable [phone] Encounter Details Date Type Department Care Team (Late st Contact Info) Description 05/09/2022 Orders Only [facility] Health Information Management [address] [place] [address] Scanning, Provider Social History Tobacco Use Types [...] on file 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 Gender Identity Not on file Sexual Orientation Straight 08/22/2021 9: 23 AM CDT documented as of this encounter Plan of Treatment Scheduled Procedures Name Priority Associated Diagnoses Date/Ti me COLONOSCOPY Encounter for screening for colorectal cancer in high risk patient Family history of rectal cancer documented as of this encounter Procedures Procedure Name Priority Date/Time Associated Diagnosis Comments SCAN - LABS 05/09/2022 1:54 PM CDT documented in this encounter Results * SCAN - LABS (05/09/2022 1:54 PM CDT) us Provider Scanning Edited Result - Final documented in this encounter Visit Diagnoses Not on filedocumented in this encounter Care Teams Armor Officer Relationship Specialty Start Date End Date Guero Colunga DO PCP - General Internal Medicine 03/22/19 04/18/23 Amber Montesinos RN Nut Sorter Operator Transplant 11/17/19 Jil Duncan MD Consulting Physician Infectious Diseases 01/10/20 Anita Gillespie MD Medical Oncologist/Hide Puller Medical Oncology 10/07/20 Tabitha Hurley MD [address] [facility] 14 [place] [address] Consulting Physician Rheumatology 10/22/21 documented as of this encounter
--- OUTSIDE RECORDS SUMMARY | 2024-10-28 06:12 | XMS_ITS | Encounter Summary ---
Author Organization [facility] Healthcare Address [address] [place] [address] Care Team Providers Care Dance Hall Hostess Name Role Phone Guero Colunga Primary Care Provider Amber Montesinos RN Unavailable [phone] Jil Duncan MD Unavailable [phone] Anita Gillespie MD Unavailable [phone] Tabitha Hurley MD Unavailable [phone] Encounter Details Date Type Department Care Team (Late st Contact Info) Description 04/17/2022 Orders Only [facility] Health Information Management [address] [place] [address] Scanning, Provider Social History Tobacco Use Types [...] on file 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 Gender Identity Not on file Sexual Orientation Straight 08/22/2021 9: 23 AM CDT documented as of this encounter Plan of Treatment Scheduled Procedures Name Priority Associated Diagnoses Date/Ti me COLONOSCOPY Encounter for screening for colorectal cancer in high risk patient Family history of rectal cancer documented as of this encounter Procedures Procedure Name Priority Date/Time Associated Diagnosis Comments SCAN - LABS 04/17/2022 2:09 PM CDT documented in this encounter Results * SCAN - LABS (04/17/2022 2:09 PM CDT) us Provider Scanning Final Result documented in this encounter Visit Diagnoses Not on filedocumented in this encounter Care Teams Dance Hall Hostess Relationship Specialty Start Date End Date Guero Colunga DO PCP - General Internal Medicine 03/22/19 04/18/23 Amber Montesinos RN Supervisor Gluing Transplant 11/17/19 Jil Duncan MD Consulting Physician Infectious Diseases 01/10/20 Anita Gillespie MD Medical Oncologist/Facing End Trimmer Medical Oncology 10/07/20 Tabitha Hurley MD [address] [facility] 14 [place] [address] Consulting Physician Rheumatology 10/22/21 documented as of this encounter
--- OUTSIDE RECORDS SUMMARY | 2024-10-28 06:12 | XMS_ITS | Encounter Summary ---
Author Organization [facility] Healthcare Address [address] [place] [address] Care Team Providers Care Chicken Raiser Name Role Phone Guero Colunga Primary Care Provider [phone] Amber Montesinos RN Unavailable [phone] Jil Duncan MD Unavailable [phone] Anita Gillespie MD Unavailable [phone] Tabitha Hurley MD Unavailable [phone] Reason for Referral * MRI/CAT/PET Scan (Routine) - Closed Specialty Diagnoses / Procedures Referred By Contac t Referred To Contact Radiology Diagnoses History of liver transplant (CMS/HCC) (HCC) 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HCC) LFT elevation Elevated bilirubin Procedures MRI Abdomen MRCP W WO Contrast Theodore Gresham MD 1 [facility] [address] [place] [address] Phone: tel: fax: [address] [address] Referral ID Status Reason Start Date Expiration Date Visits Re quested Visits Authorized [id number] Closed 04/17/2022 05/17/2023 1 1 Reason for Visit * MRI/CAT/PET Scan (Routine) - Closed Specialty Diagnoses / Procedures Referred By Sascha rey Referred To Contact Radiology Diagnoses History of liver transplant (CMS/HCC) (HCC) 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HCC) LFT elevation Elevated bilirubin Procedures MRI Abdomen MRCP W WO Contrast Theodore Gresham MD 1 [facility] [address] [place] [address] Phone: tel: fax: [address] [address] Referral ID Status Reason Start Date Expiration Date Visits Re quested Visits Authorized [id number] Closed 04/17/2022 05/17/2023 1 1 Encounter Details Date Type Department Care Team (Latest Contact Info) Description 05/02/2022 7:10 AM CDT - 05/02/2022 11:59 PM CDT Hospital Encounter [facility] Radiology at [address] [id number] History of liver transplant (CMS/HCC) (HCC); 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HCC); LFT elevation; Elevated bilirubin Discharge Disposition: Discharge to home or self [...] on file 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 Gender Identity Not on file Sexual Orientation Straight 08/22/2021 9: 23 AM CDT documented as of this encounter Medications at Time of Discharge doxycycline (VIBRAMYCIN) 100 mg capsule Take 1 tablet/capsule (100 mg total) by mouth 2 (two) times a day for 10 days 20 tablet/capsule 04/27/2022 2 budesonide (Pulmicort) 0.5 mg/2 mL nebulizer [...] mg total) by mouth daily 30 capsule 11 12/08/2021 2 traZODone (DESYREL) 50 mg tablet Take 1 tablet (50 mg total) by mouth nightly 30 tablet 2 03/05/2022 3 ursodioL (ACTIGALL) 300 mg capsule Take 2 capsules (600 mg total) by mouth daily with dinner 180 capsule 3 10/02/2021 3 documented as of this encounter Discharge Disposition Disposition Code Departure Means Destination Discharge to home or self care documented in this encounter Plan of Treatment Scheduled Procedures Name Priority Associated Diagnoses Date/Ti me COLONOSCOPY Encounter for screening for colorectal cancer in high risk patient Family history of rectal cancer documented as of this encounter Procedures Procedure Name Priority Date/Time Associated Diagnosis Comments MRI ABDOMEN MRCP W WO CONTRAST Schedule Routine, Read Routine (OP Routine) 05/02/2022 8:49 AM CDT History of liver transplant (CMS/HCC) (HCC) 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HCC) LFT elevation Elevated bilirubin documented in this encounter Results * MRI Abdomen MRCP W WO Contrast (05/02/2022 8:49 AM CDT) Anatomical Region Laterality Modality Body N/A Magnetic Resonan ce 05/02/2022 10:5 5 AM CDT Impressions 05/03/2022 9:19 AM CDT 1. No biliary ductal dilation. 2. 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 No suspicious liver lesion. Dictated by: Bonita Fishman M.D. The radiology attending physician has personally reviewed this study, and had reviewed and/or edited this written report and agrees with it. Electronically signed by: Saul Heath M.D. Narrative 05/03/2022 9:19 AM CDT EXAMINATION: 1. MAGNETIC RESONANCE IMAGING OF [...] unchanged in morphology from the prior exam. ??No steatosis or iron deposition is noted. - Bile ducts: Remain normal in caliber. ??No evidence of biliary obstruction. - Focal liver [...] unchanged from 10/01/2021. No suspicious osseous lesion. Procedure Note Saul Heath MD - 05/03/2022 EXAMINATION: 1. MAGNETIC RESONANCE IMAGING OF THE [...] it. Electronically signed by: Saul Heath M.D. 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 57.8 kg), intravenous, Once in imaging, contrast, Starting on 05/02/22 at 0736, For 1 dose, Imaging Protocol Orders Contrast Given 05/02/2022 8:28 AM CDT 12 mL sodium chloride 0.9% flush 125 mL 125 mL, intravenous, Once in imaging, line care, Starting on 05/02/22 at 0736, For 1 dose Given 05/02/2022 8:28 AM CDT 125 mL documented in this encounter Care Teams Chicken Raiser Relationship Specialty Start Date End Date Guero Colunga DO PCP - General Internal Medicine 03/22/19 04/18/23 Amber Montesinos, RN Varnishing Unit Tool Setter Transplant 11/17/19 Jil Duncan MD Consulting Physician Infectious Diseases 01/10/20 Anita Gillespie MD Medical Oncologist/Pest Controller Assistant Medical Oncology 10/07/20 Tabitha Hurley MD [address] [facility] 14 [place] [address] Consulting Physician Rheumatology 10/22/21 documented as of this encounter
--- OUTSIDE RECORDS SUMMARY | 2024-10-28 06:12 | XMS_ITS | Encounter Summary ---
Author Organization [facility] Healthcare Address [address] [place] [address] Care Team Providers Care Woods Laborer Name Role Phone Guero Colunga Primary Care Provider [phone] Amber Montesinos RN Unavailable [phone] Jil Duncan MD Unavailable [phone] Anita Gillespie MD Unavailable [phone] Tabitha Hurley MD Unavailable [phone] Encounter Details Date Type Department Care Team (Latest Contact Info) Description 05/13/2022 2:16 PM CDT - 05/13/2022 11:59 PM CDT Hospital Encounter [facility] [address] [place] [phone] 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) Discharge [...] on file 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 Gender Identity Not on file Sexual Orientation Straight 08/22/2021 9: 23 AM CDT documented as of this encounter Medications at Time of Discharge budesonide (Pulmicort) 0.5 mg/2 mL nebulizer solution [...] Priority Date/Time Associated Diagnosis Comments EGFR Routine 05/13/2022 7:21 AM CDT 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 Testing performed by: [facility], [address] [place] [phone] Blood 05/13/2022 7:21 AM CDT 05/13/2022 7:27 AM CDT Nancy Butler NP LAB BLOOD ORDERABLES Final Result [facility] [place] [address] * (ABNORMAL) Differential, auto (05/13/2022 7:21 AM CDT) Neutrophil abs 1.7(L) 1.8 - 6.6 K/cumm [facility] Comment:Testing performed by : [facility], [address] [place] [phone] Lymphocyte abs 3.2 1.2 - 3.3 K/cumm [facility] Comment:Testing performed by : [facility], [address] [place] [phone] Monocyte abs 2.0(H) 0.2 - 1.2 K/cumm [facility] Comment:Testing performed by : [facility], [address] [place] [phone] Eosinophil abs 0.4 0.0 - 0.5 K/cumm [facility] Comment:Testing performed by : [facility], [address] [place] [phone] Basophil abs 0.1 0.0 - 0.2 K/cumm [facility] Comment:Testing performed by : [facility], [address] [place] [phone] Neutrophil pct 23.2 % [facility] Comment: Interpretive Data Percent cell count reference ranges are not reported, since discordance with absolute values may lead to misinterpretation of CBC data. Current Interpretive Data was last revised on 2018. Testing performed by: [facility], [address] [place] [phone] Lymphocyte pct 43.8 % [facility] Comment: Interpretive Data Percent cell count reference ranges are not reported, since discordance with absolute values may lead to misinterpretation of CBC data. Current Interpretive Data was last revised on 2018. Testing performed by: [facility], [address] [place] [phone] Monocyte pct 26.6 % [facility] Comment:Testing performed by : [address] [phone] Eosinophil pct 5.6 % [facility] Comment:Testing performed by : [facility], [address] [place] [phone] Basophil pct 0.8 % [facility] Comment:Testing performed by : [facility], [address] [place] [phone] Blood 05/13/2022 7:21 AM CDT 05/13/2022 7:27 AM CDT Nancy Butler NP LAB BLOOD ORDERABLES Final Result Performing Organization Address City/[facility]/ZIP Co de Phone Number [facility] [place] [address] * (ABNORMAL) Lactate dehydrogenase (LD) (05/13/2022 7:21 AM CDT) Pathologist [facility] Lactate dehydrogenase (LDH) 314(H) 100 - 250 Units/L [facility] Comment:Testing performed by : [facility], [address] [place] [phone] Blood 05/13/2022 7:21 AM CDT 05/13/2022 7:27 AM CDT Nancy Butler NP LAB BLOOD ORDERABLES Final Result Performing Organization Address [facility] Co de Phone Number [facility] [place] [address] * (ABNORMAL) Comprehensive metabolic panel (05/13/2022 7:21 AM CDT) Sodium 142 135 - 145 mmol/L [facility] Comment:Testing performed by : [facility], [address] [place] [phone] Potassium, pl 4.4 3.3 - 4.9 mmol/L [facility] Comment:Testing performed by : [facility], [address] [place] [phone] Chloride 108 97 - 110 mmol/L [facility] Comment:Testing performed by : [facility], [address] [place] [phone] CO2 27 22 - 32 mmol/L [facility] Comment:Testing performed by : [facility], [address] [place] [phone] Anion gap 7 2 - 15 mmol/L [facility] Comment:Testing performed by : [facility], [address] [place] [phone] BUN 14 8 - 25 mg/dL [facility] Comment:Testing performed by : [facility], [address] [place] [phone] Creatinine 0.90 0.80 - 1.30 mg/dL [facility] Comment:Testing performed by : [facility], [address] [place] [phone] Glucose 93 70 - 199 mg/dL [facility] Comment: [...] Current interpretive data was last revised 2017. Testing performed by: [facility], [address] [place] [phone] Calcium 9.0 8.5 - 10.3 mg/dL [facility] Comment:Testing performed by : [facility], [address] [place] [phone] Bilirubin, total 2.1(H) 0.1 - 1.2 mg/dL [facility] Comment:Testing performed by : [facility], [address] [place] [phone] Protein, pl 6.0(L) 6.5 - 8.5 g/dL [facility] Comment:Testing performed by : [facility], [address] [place] [phone] Albumin 3.8 3.5 - 5.0 g/dL [facility] Comment:Testing performed by : [facility], [address] [place] [phone] Alk phos 338(H) 40 - 130 Units/L [facility] Comment:Testing performed by : [facility], [address] [place] [phone] ALT 81(H) 7 - 55 Units/L [facility] Comment:Testing performed by : [facility], [address] [place] [phone] AST 111(H) 10 - 50 Units/L [facility] Comment:Testing performed by : [facility], [address] [place] [phone] Blood 05/13/2022 7:21 AM CDT 05/13/2022 7:27 AM CDT Nancy Butler CARD LACER JACQUARD LAB BLOOD ORDERABLES Final Result [facility] [place] [address] * (ABNORMAL) CBC with auto differential (05/13/2022 7:21 AM CDT) WBC 7.3 3.8 - 9.8 K/cumm [facility] Comment:Testing performed by : [facility], [address] [place] [phone] Hgb 12.7(L) 13.8 - 17.2 g/dL [facility] Comment:Testing performed by : [facility], [address] [place] [phone] Hct 36.2(L) 40.7 - 50.3 % [facility] Comment:Testing performed by : [facility], [address] [place] [phone] Plt 155 140 - 440 K/cumm [facility] Comment:Testing performed by : [address] [phone] MPV 9.4 6.8 - 10.4 fL [facility] Comment:Testing performed by : [address] [phone] RBC 3.61(L) 4.50 - 5.70 M/cumm [facility] Comment:Testing performed by : [facility], [address] [place] [phone] MCV 100.4(H) 80.0 - 97.6 fL [facility] Comment:Testing performed by : [facility], [address] [place] [phone] MCH 35.1(H) 26.7 - 33.7 pg [facility] Comment:Testing performed by : [facility], [address] [place] [phone] MCHC 35.0 32.7 - 35.5 g/dL [facility] Comment:Testing performed by : [facility], [address] [place] [phone] RDW CV 19.1(H) 11.8 - 14.6 % [facility] Comment:Testing performed by : [facility], [address] [place] [phone] NRBC abs 0.00 0.00 - 0.01 K/cumm [facility] Comment:Testing performed by : [facility], [address] [place] [phone] Blood 05/13/2022 7:21 AM CDT 05/13/2022 7:27 AM CDT us Nancy Butler CARD LACER JACQUARD LAB BLOOD ORDERABLES Final Result Performing Organization Address City/State/[facility] Co de Phone Number [facility] [place], [place] [id number] documented in this encounter Visit Diagnoses Diagnosis 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) documented in this encounter Care Teams Woods Laborer Relationship Specialty Start Date End Date Guero Colunga DO PCP - General Internal Medicine 03/22/19 04/18/23 Abmer Montesinos, SHAILESH Spine Specialist Transplant 11/17/19 Jil Duncan MD Consulting Physician Infectious Diseases 01/10/20 Anita Gillespie MD Medical Oncologist/River Boat Captain Medical Oncology 10/07/20 Tabitha Hurley MD [address] [address] Consulting Physician Rheumatology 10/22/21 documented as of this encounter
--- OUTSIDE RECORDS SUMMARY | 2024-10-28 06:12 | XMS_ITS | Encounter Summary ---
Author Organization [facility] Address [address] [place] [address] Phone Care Team Providers Care Manager Actuarial Name Role Phone Guero Colunga DO Primary Care Provider [phone] Amber Montesinos RN Unavailable [phone] Jil Duncan MD Unavailable [phone] Anita Gillespie MD Unavailable [phone] Tabitha Hurley MD Unavailable [phone] Encounter Details Date Type Department Care Team (Late st Contact Info) Description 03/10/2022 Telephone [facility] Infectious Diseases [address] [place] [phone] Pavan Owen, Radhames Social History Tobacco Use Types Packs/Day Years [...] on file 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 documented in this encounter Plan of Treatment Scheduled Procedures Name Priority Associated Diagnoses Date/Ti me COLONOSCOPY Encounter for screening for colorectal cancer in high risk patient Family history of rectal cancer documented as of this encounter Visit Diagnoses Not on filedocumented in this encounter Care Teams Manager Actuarial Relationship Specialty Start Date End Date Guero Colunga DO PCP - General Internal Medicine 03/22/19 04/18/23 Amber Montesinos RN Media Sales Executive Transplant 11/17/19 Jil Duncan MD Consulting Physician Infectious Diseases 01/10/20 Anita Gillespie MD Medical Oncologist/Certified Respiratory Therapist Medical Oncology 10/07/20 Tabitha Hurley MD [address] [facility] [address] [place] [address] Consulting Physician Rheumatology 10/22/21 documented as of this encounter
--- OUTSIDE RECORDS SUMMARY | 2024-10-28 06:12 | XMS_ITS | Encounter Summary ---
Author Organization [facility] Healthcare Address [address] [place] [address] Care Team Providers Care Manager Spa Name Role Phone Guero Colunga Primary Care Provider [phone] Amber Montesinos RN Unavailable [phone] Jil Duncan MD Unavailable [phone] Anita Gillespie MD Unavailable [phone] Tabitha Hurley MD Unavailable [phone] Reason for Visit * Reason Comments Flank Pain Encounter Details Date Type Department Care Team (Late st Contact Info) Description 07/05/2022 3:05 AM CDT - 07/05/2022 11:32 AM CDT Emergency [facility] Emergency Department [address] [place] [id number] Sreekanth Grande MD PhD [address] [place] [address] Mac Lyman MD [address] [place] [address] Kidney stone (Primary Dx) Discharge Disposition: Discharge to home [...] on file 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 Gender Identity Not on file Sexual Orientation Straight 08/22/2021 9: 23 AM CDT documented as of this encounter Last Filed Vital Signs Vital Sign Reading Time Taken Comments Blood Pressure 100/60 07/05/2022 11:00 AM CDT Pulse 76 07/05/2022 11:00 AM CDT Temperature 36.6 ??C (97.9 ??F) 07/05/2022 2:26 AM CD T Respiratory Rate 16 07/05/2022 2:26 AM CDT Oxygen Saturation 96% 07/05/2022 11:00 AM CDT Inhaled Oxygen Concentration - - Weight 61.2 kg (135 lb) 07/05/2022 2:26 AM CDT Height 172.7 cm (5' 8 ) 07/05/2022 2:26 AM CDT Body Mass Index 20.53 07/05/2022 2:26 AM CDT documented in this encounter Discharge Instructions * Discharge Instructions* Paulino Fraga MD - 07/05/2022 10:53 AM CDT You have been evaluated in the Emergency Department today for your flank pain. Your pain is most likely due to a kidney stone which will pass on its own. Please take ibuprofen for your pain. Please follow up with your primary care physician. If your symptoms do not improve, please follow up with the urologist. Return to the Emergency Department if you experience worsening pain, fever, painful urination, blood in urine, weakness, chest pain, difficulty breathing or any other concerning symptoms. * Attachments The following attachments cannot be sent through Care Everywhere. 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 Presents to the ED with right flank pain that began approximately 21:30 prior to presentation. Notes that for several days he has also had nasal congestion, pressure, increased discoloration (yellow) of nasal discharge, and increased ocular discharge, consistent with previous sinus infections, for which had been followed by ENT. PHYSICAL EXAMINATION: Appears nontoxic. Normal vital signs. Moist oral mucosa. No nasal mucosal injection. No maxillary or frontal sinus tenderness. Clear auscultation with normal effort of respiration. Heart regular without appreciable extra heart sounds. Benign abdomen. Very minimal right flank te nderness. ASSESSMENT/PLAN: Consider UTI, kidney stone, non stone related ureteral obstruction. Will check CBC, BMP, hepatic function panel, urinalysis, renal protocol CT. Treat symptoms. IV fluids. Sreekanth Grande MD PhD 07/05/22 0423 * Lisandra Xie MD - 07/05/2022 3:38 AM CDT HPI Chief Complaint Patient presents with Flank Pain 27-year-old past will history significant for non-Hodgkin's lymphoma, liver transplant in 1998 secondary to autoimmune hepatitis, CMV infection, and chronic low platelets presenting with right-sided flank pain, hematuria, vomiting, and nausea. Patient's symptoms began around 9:30 p.m. tonight with his right back pain that comes and goes. He has no history of kidney stones in the past. Patient hasfelt fevers with some chills, maybe a possible fever on Wednesday. He does have general weakness and some scleral icterus that has been increasing in color last few weeks. Patient also has a headachethe last 2 days from possible sinus infection. He states that these are chronic issue that he is seeing ENT doctor for October. Patient also endorses coughing up a greenish yellowish sputum, shortness of breath with significant exertion, and a history of walking pneumonia. Patient denies feeling short of breath at rest or chest pain. 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 01/06/2019 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 ([facility]/HCC) ([facility]) 08/25/2017 History of liver transplant ([facility]) ([facility]) 06/06/2014 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 Negative for appetite change, diaphoresis and fatigue. HENT: Positive for congestion, postnasal drip, sinus pressure and sinus pain. Negative for drooling, ear discharge, ear pain, facial swelling, mouth sores, rhinorrhea, sneezing, sore throat and trouble swallowing. Eyes: Negative for visual disturbance. Respiratory: Negative for cough, chest tightness, shortness of breath and wheezing. Cardiovascular: Negative for chest pain, palpitations and leg swelling. Gastrointestinal: Negative for abdominal pain, constipation, diarrhea, nausea and vomiting. Genitourinary: Positive for decreased urine volume, difficulty urinating, flank pain and hematuria.Negative for frequency, penile pain, scrotal swelling and testicular pain. Musculoskeletal: Negative for arthralgias, back pain, gait problem, neck pain and neck stiffness. Skin: Negative for color change, rash and wound. Neurological: Positive for headaches. Negative for dizziness, seizures, weakness and light-headedness. Psychiatric/Behavioral: Negative for confusion, hallucinations and suicidal ideas. The patient is not nervous/anxious. Physical Exam ED Triage Vitals Temp Pulse Resp BP SpO2 07/05/2222507/05/2222507/05/2222507/05/2222507/05/22225 36.6 ??C (97.9 ??F) 82 16 119/76 99 % Temp src Heart Rate Source Patient Position BP Location FiO2 (%) 07/05/2222507/05/22 0430 -- -- -- Oral Monitor Height Height Method Weight Weight Method 07/05/2222507/05/2222507/05/2222507/05/22225 1.727 m (5' 8 ) Stated 61.2 kg (135 lb) Stated Constitutional: well developed, well nourished, cooperative, and apparent distress Head: normocephalic, without obvious abnormality, atraumatic Neurologic: AOx3, cranial Nerves II-XII intact sensation intact all extremities motor 5/5 all extremities Eyes: conjunctivae/corneas clear. PERRL, EOMs intact HENT: external aural meatus intact with no visable drainage from the ear, mucous membranes moist, nares normal, and septum midline Neck: supple, symmetrical, trachea midline Chest: normal appearance, no masses or tenderness Back: Right flank CVA tenderness, no midline or left flank CVA tenderness Respiratory: clear to auscultation bilaterally and normal chest rise and fall Cardiovascular: regular rate and rhythm, S1, S2 normal, no murmur, click, rub or gallop Gastrointestinal: soft, non-tender; bowel sounds present; no masses, no organomegaly, surgical scars Musculoskeletal: extremities normal, warm and well-perfused and no edema Pulses: radial: bilateral normal Skin: skin color, texture, turgor normal. No rashes or lesions MDM 27 y.o. 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 Patient most likely has a kidney stone. Plan: 1) Labs: BMP, CBC, hepatic function panel, UA 2) Imaging/other tests: CT ab and pelvis wo 3) Therapeutics: dilaudid, toradol, LR, zofran 4) dispo pending results and clinical course - anticipate home once pain managed Please see ED course for further details relevant to this patient's ED management Attending Summary of Care ED Course as of 07/06/22611 Time: 07/05 634 Value: CT Abdomen Pelvis WO Contrast Comment: New mild right hydroureteronephrosis with apparent obstructing stone near the right ureterovesicular junction By: Lisandra Xie MD Time: 07/05 807 Comment: Pain is well-controlled w/toradol, IVF running, he requesting to eat. By: Paulino Fraga MD Bilirubin >2: is chronic and not related to infection. (07/05/22 1053 : Mac Lyman MD) Bilirubin: Kidney stone Lisandra Xie MD Resident 07/05/22 0730 Lisandra Xie MD Resident 07/06/22 0612 Cosigned by Sreekanth Grande MD PhD at 07/06/2022 7:30 AM CDT Associated attestation - Sreekanth Grande MD PhD - 07/06/2022 7:30 AM CDT ED Attestation I have seen and examined the patient ([id number]). I reviewed the resident's note and agree with the findings and plan of care as documented in the resident's note unless I have documented otherwise. * Juan Manuel Hoang RN - 07/05/2022 2:24 AM CDT Pt presents with c/o subjective fever, cough, and SOB that began on 08/31. PT reports hematuria andacute right flank pain began at 2129. Hx of liver transplant 1998 and non-Hodgkins lymphoma. documented in this encounter Miscellaneous Notes * ED Re-evaluation Note - Paulino Fraga MD - 07/05/2022 7:01 AM CDT ED Re-evaluation TRANSITION OF CARE: I, Paulino Fraga MD, PhD, am taking signout on this patient. I have reviewed all pertinent vital signs, allergies, and history available in the chart. Summary: 27 y.o. male LT recipient (1998) 2/2 AI hepatitis w/CMV, thrombocytopenia, and non-Hodgkin's lymphoma p/w R flank pain, hematuria, vomiting, and nausea. CT A/P w/o c/w R kidney stone Pending: pain control, IVF resuscitation Dispo: anticipate discharge ED Course as of 07/05/22 0808 Time: 07/05 0634 Value: CT Abdomen Pelvis WO Contrast Comment: New mild right hydroureteronephrosis with apparent obstructing stone near the right ureterovesicular junction By: Lisandra Xie MD Time: 07/05 0807 Comment: Pain is well-controlled w/toradol, IVF running, he requesting to eat. By: Paulino Fraga MD Final diagnoses: Kidney stone Paulino Fraga MD Resident 07/05/22 0706 documented in this encounter Plan of Treatment Scheduled Procedures Name Priority Associated Diagnoses Date/Ti me COLONOSCOPY Encounter for screening for colorectal cancer in high risk patient Family history of rectal cancer documented as of this encounter Procedures Procedure Name Priority Date/Time Associated Diagnosis Comments CT ABDOMEN PELVIS WO CONTRAST ED 07/05/2022 5:39 AM CDT EGFR STAT 07/05/2022 4:26 AM CDT DIFFERENTIAL AUTO STAT 07/05/2022 4:2 6 AM CDT URINALYSIS AND REFLEX TO MICROSCOPIC AND CULTURE STAT 07/05/2022 4:26 AM CDT CBC WITH AUTO DIFFERENTIAL STAT 07/05/2022 4:26 AM CDT URINALYSIS, MICROSCOPIC ONLY STAT 07/05/2022 4:26 AM CDT HEPATIC FUNCTION PANEL STAT 07/05/2022 4:26 AM CDT BASIC METABOLIC PANEL STAT 07/05/2022 4:26 AM CDT documented in this encounter Results * CT Abdomen Pelvis WO Contrast (07/05/2022 5:39 AM CDT) Anatomical Region Laterality Modality Body N/A Computed Tomogra phy 07/05/2022 6:03 AM CDT Impressions 07/05/2022 11:32 AM CDT 1. New mild right hydroureteronephrosis with apparent obstructing stone near the right ureterovesicular junction. 2. Unchanged retroperitoneal, mesenteric, and paraesophageal lymphadenopathy compatible with patient's known non-Hodgkin's lymphoma. 3. Consolidation in the right middle lobe may represent sequela of aspiration or atypical mycobacterial infection. Dictated by: Fredi Mathews M.D. The radiology attending physician has personally reviewed this study, and had reviewed and/or edited this written report and agrees with it. Electronically signed by: Severiano Mason M.D. Narrative 07/05/2022 11:32 AM CDT EXAMINATION: ??Computed tomography of the abdomen and pelvis without intravenous contrast HISTORY: 27-year-old male with non-Hodgkin's lymphoma, liver transplant, CMV infection presenting with right flank pain. TECHNIQUE: ??Transaxial computed tomographic images of the abdomen and pelvis ??were obtained without intravenous contrast according to the standard protocol. COMPARISON: 05/02/2022, 10/01/2021 FINDINGS: ?? Partially visualized consolidation within the right middle lobe with areas of tree-in-bud nodularity may represent sequela of aspiration or atypical mycobacterial infection. Post surgical changes of orthotopic liver transplant. Normal noncontrast appearance of the liver, pancreas, left kidney, adrenal glands. There is new mild right hydroureteronephrosis with a tiny calcific density noted in the region of the distal right ureter near the ureterovesicular junction suspicious for an obstructing stone. The bladder is decompressed. The large and small bowel are normal in course and caliber. Unchanged retroperitoneal, mesenteric and paraesophageal lymphadenopathy and compared to prior MRI. For reference there is a periaortic lymph node measuring 1.8, best seen at series 3, image 77 present measuring 1.7 mm. There is near complete osseous fusion of the lower lumbosacral spine. Procedure Note Severiano Mason MD - 07/05/2022 EXAMINATION: Computed tomography of the abdomen and pelvis without intravenous contrast HISTORY: 27-year-old male with non-Hodgkin's lymphoma, liver transplant, CMV infection presenting with right flank pain. TECHNIQUE: Transaxial computed tomographic images of the abdomen and pelvis were obtained without intravenous contrast according to the standard protocol. COMPARISON: 05/02/2022, 10/01/2021 FINDINGS: Partially visualized consolidation within the right middle lobe with areas of tree-in-bud nodularity may represent sequela of aspiration or atypical mycobacterial infection. Post surgical changes of orthotopic liver transplant. Normal noncontrast appearance of the liver, pancreas, left kidney, adrenal glands. There is new mild right hydroureteronephrosis with a tiny calcific density noted in the region of the distal right ureter near the ureterovesicular junction suspicious for an obstructing stone. The bladder is decompressed. The large and small bowel are normal in course and caliber. Unchanged retroperitoneal, mesenteric and paraesophageal lymphadenopathy and compared to prior MRI. For reference there is a periaortic lymph node measuring 1.8, best seen at series 3, image 77 present measuring 1.7 mm. There is near complete osseous fusion of the lower lumbosacral spine. IMPRESSION: 1. New mild right hydroureteronephrosis with apparent obstructing stone near the right ureterovesicular junction. 2. Unchanged retroperitoneal, mesenteric, and paraesophageal lymphadenopathy compatible with patient's known non-Hodgkin's lymphoma. 3. Consolidation in the right middle lobe may represent sequela of aspiration or atypical mycobacterial infection. Dictated by: Fredi Mathews M.D. The radiology attending physician has personally reviewed this study, and had reviewed and/or edited this written report and agrees with it. Electronically signed by: Severiano Mason M.D. us Lisandra Xie MD IMG CT PROCEDURES Final R esult * eGFR (07/05/2022 4:26 AM CDT) Pathologist [facility] eGFR >90 90 - 130 mL/min/1. 73 m2 [facility] Comment: Interpretive Data Reference Interval Normal [...] interpretive data was last reviewed 2021. Blood 07/05/2022 4:26 AM CDT 07/05/2022 4:39 AM CDT us Lisandra Xie MD LAB BLOOD ORDERABLES Chata cuadra Result [facility] [place] [address] * (ABNORMAL) Urinalysis, microscopic only (07/05/2022 4:26 AM CDT) WBC, ur 0-5 0 - 5 /HPF [facility] RBC, ur >50(A) 0 - 2 /HPF [facility] Bacteria, ur 1+(A) [facility] Yeast, ur 4+(A) [facility] Mucous, ur Present(A) [facility] Amorphous crystals, ur 1+(A) [facility] Culture Reflex Comment Reflex conditions for urine culture (WBC >10) not met. [facility] Urine 07/05/2022 4:26 AM CDT 07/05/2022 4:33 AM CDT us Lisandra Xie MD LAB URINE ORDERABLES Chata cuadra Result [facility] Department [place] [address] * (ABNORMAL) Differential, auto (07/05/2022 4:26 AM CDT) Neutrophil abs 7.6(H) 1.7 - 6.5 K/cumm [facility] Imm gran abs 0.1 0.0 - 0.1 K/cumm [facility] Lymphocyte abs 3.9(H) 0.8 - 3.3 K/cumm [facility] Monocyte abs 2.7(H) 0.2 - 0.8 K/cumm [facility] Eosinophil abs 0.3 0.0 - 0.5 K/cumm [facility] Basophil abs 0.1 0.0 - 0.1 K/cumm [facility] Neutrophil pct 52.1 % [facility] Comment: Interpretive Data Percent cell count reference ranges are not reported, since discordance with absolute values may lead to misinterpretation of CBC data. Current Interpretive Data was last revised on 2018. Imm gran pct 0.4 % [facility] Comment: Interpretive Data Percent cell count reference ranges are not reported, since discordance with absolute values may lead to misinterpretation of CBC data. Current Interpretive Data was last revised on 2018. Lymphocyte pct 26.7 % [facility] Comment: Interpretive Data Percent cell count reference ranges are not reported, since discordance with absolute values may lead to misinterpretation of CBC data. Current Interpretive Data was last revised on 2018. Monocyte pct 18.3 % [facility] Comment: Interpretive Data Percent cell count reference ranges are not reported, since discordance with absolute values may lead to misinterpretation of CBC data. Current Interpretive Data was last revised on 2018. Eosinophil pct 1.9 % [facility] Comment: Interpretive Data Percent cell count reference ranges are not reported, since discordance with absolute values may lead to misinterpretation of CBC data. Current Interpretive Data was last revised on 2018. Basophil pct 0.6 % [facility] Comment: Interpretive Data Percent cell count reference ranges are not reported, since discordance with absolute values may lead to misinterpretation of CBC data. Current Interpretive Data was last revised on 2018. Blood 07/05/2022 4:26 AM CDT 07/05/2022 4:39 AM CDT us Lisandra Xie MD LAB BLOOD ORDERABLES Chata cuadra Result [facility] [place] [address] * (ABNORMAL) Urinalysis reflex to microscopic and culture Urine (07/05/2022 4:26 AM CDT) Color, ur Yellow Yellow [facility] Clarity, ur Turbid(A) Clear [facility] Specific gravity, ur 1.024 1.003 - 1.030 [facility] pH, urine 6.0 [facility] Protein, ur ql 1+(A) Negative [facility] Glucose, ur ql Negative Negative [facility] Ketones, ur Negative Negative [facility] Bilirubin, ur Negative Negative [facility] Blood, ur 3+(A) Negative [facility] Urobilinogen, ur >=8.0(A) <2.0 mg/dL [facility] Nitrite, ur Negative Negative [facility] Leukocyte esterase, ur Negative Negative [facility] UA reflex comment Reflex to microscopic UA will be performed. [facility] Urine 07/05/2022 4:26 AM CDT 07/05/2022 4:33 AM CDT Narrative [facility] - 07/05/2022 4:41 AM CDT ?? Urine pH is affected by diet, medications, systemic acid-base disturbances, and renal tubular function. ??pH may affect urinary stone formation. ??For example, urine pH below 6.0 may help reduce the tendency for calcium phosphate stones and pH greater than 6.0 may reduce the tendency for uric acid stone formation. Source: [facility] [employer]Message. Last revised 11-11-2017 us Lisandra Xie MD LAB MICROBIOLOGY - GENERA L ORDERABLES Final Result Performing Organization Address [facility] Co de Phone Number [facility] [place] [address] * (ABNORMAL) Hepatic function panel (07/05/2022 4:26 AM CDT) Bilirubin, total 2.8(H) 0.1 - 1.2 mg/dL [facility] Bilirubin, direct 1.6(H) 0.1 - 0.3 mg/dL [facility] Protein, pl 6.0(L) 6.5 - 8.5 g/dL [facility] Albumin 3.6 3.5 - 5.0 g/dL [facility] Alk phos 328(H) 40 - 130 Units/L [facility] ALT 97(H) 7 - 55 Units/L [facility] AST 130(H) 10 - 50 Units/L [facility] Blood 07/05/2022 4:26 AM CDT 07/05/2022 4:39 AM CDT us Lisandra Xie MD LAB BLOOD ORDERABLES Chata l Result Performing Organization Address [facility] Co de Phone Number [facility] Department [place] [address] * Basic metabolic panel (07/05/2022 4:26 AM CDT) Sodium 142 135 - 145 mmol/L [facility] Potassium, pl 4.5 3.3 - 4.9 mmol/L [facility] Chloride 109 97 - 110 mmol/L [facility] CO2 25 22 - 32 mmol/L [facility] Anion gap 8 2 - 15 mmol/L [facility] BUN 12 8 - 25 mg/dL [facility] Creatinine 0.88 0.80 - 1.30 mg/dL [facility] Glucose 92 70 - 199 mg/dL [facility] Comment: Interpretive Data Fasting glucose [...] interpretive data was last revised 2017. Calcium 8.7 8.5 - 10.3 mg/dL [facility] Blood 07/05/2022 4:26 AM CDT 07/05/2022 4:39 AM CDT us Lisandra Xie MD LAB BLOOD ORDERABLES Chata cuadra Result [facility] [place] [address] * (ABNORMAL) CBC with auto differential (07/05/2022 4:26 AM CDT) WBC 14.6(H) 3.8 - 9.9 K/cumm [facility] Hgb 12.6(L) 13.0 - 17.5 g/dL [facility] Hct 35.5(L) 38.9 - 50.3 % [facility] Plt 212 150 - 400 K/cumm [facility] MPV 11.1 9.1 - 12.3 fL [facility] RBC 3.56(L) 4.30 - 5.80 M/cumm [facility] MCV 99.7(H) 81.3 - 96.4 fL [facility] MCH 35.4(H) 27.1 - 33.3 pg [facility] MCHC 35.5 32.3 - 35.7 g/dL [facility] RDW CV 16.8(H) 11.1 - 14.9 % [facility] RDW SD 61.3(H) 35.7 - 48.1 fL [facility] NRBC abs 0.00 0.00 - 0.01 K/cumm [facility] Blood 07/05/2022 4:26 AM CDT 07/05/2022 4:39 AM CDT us Lisandra Xie MD LAB BLOOD ORDERABLES Chata venecia Result [facility] [place] [address] documented in this encounter Visit Diagnoses Diagnosis Kidney stone- Primary Calculus of kidney documented in this encounter Administered Medications Inactive Administered Medications - up to 3 most recent administrations Medication Order MAR Action Action Date Dose Rate Site HYDROmorphone (DILAUDID) injection 0.5 mg 0.5 mg, intravenous, Administer over 2 Minutes, Once, On 07/05/22 at 0401, For 1 dose, Indications: PainIndications:Pain Given 07/05/2022 4:27 AM CDT 0.5 mg HYDROmorphone (DILAUDID) injection 0.5 mg 0.5 mg, intravenous, Administer over 2 Minutes, Once, On 07/05/22 at 0512, For 1 dose Given 07/05/2022 5:22 AM CDT 0.5 mg ketorolac (TORADOL) 15 mg/mL injection 15 mg 15 mg, intravenous, Once, On 07/05/22 at 0654, For 1 dose, For Adult IV push, administer over 15 seconds Given 07/05/2022 7:03 AM CDT 15 mg Lactated Ringer's (LR) bolus 1,000 mL 1,000 mL, intravenous, Once, On 07/05/22 at 0654, For 1 dose New Bag 07/05/2022 7:04 AM CDT 1,000 mL ondansetron (ZOFRAN) injection 4 mg 4 mg, intravenous, Administer over 2 Minutes, Once, On 07/05/22 at 0401, For 1 dose Given 07/05/2022 4:27 AM CDT 4 mg documented in this encounter Active and Recently Administered Medications Times are shown in CDT. Scheduled Medication Order 07/03/2022 07/04/2022 07/05/2022 HYDROmorphone (DILAUDID) injection 0.5 mg (COMPLETED) 0.5 mg, intravenous, Administer over 2 Minutes, Once, On 07/05/22 at 0401, For 1 dose, Indications: Pain 0427 (Given - Provid er: Dee Grace, SHAILESH) HYDROmorphone (DILAUDID) injection 0.5 mg (COMPLETED) 0.5 mg, intravenous, Administer over 2 Minutes, Once, On 07/05/22 at 0512, For 1 dose 0522 (Given - Provid er: Portillo Frausto, SHAILESH) ketorolac (TORADOL) 15 mg/mL injection 15 mg (COMPLETED) 15 mg, intravenous, Once, On 07/05/22 at 0654, For 1 dose, For Adult IV push, administer over 15 seconds 0703 (Given - Provid er: Mac Stanley, SHAILESH) Lactated Ringer's (LR) bolus 1,000 mL (COMPLETED) 1,000 mL, intravenous, Once, On 07/05/22 at 0654, For 1 dose 0704 (New Bag - Prov ider: Mac Stanley, RN)0926 (Stopped - Provider: Mac Stanley, SHAILESH) ondansetron (ZOFRAN) injection 4 mg (COMPLETED) 4 mg, intravenous, Administer over 2 Minutes, Once, On 07/05/22 at 0401, For 1 dose 0427 (Given - Provid er: Dee Grace, SHAILESH) documented in this encounter Care Teams Manager Spa Relationship Specialty Start Date End Date Guero Colunga DO PCP - General Internal Medicine 03/22/19 04/18/23 Amber Montesinos, RN Provider Service Representative Transplant 11/17/19 Jil Duncan MD Consulting Physician Infectious Diseases 01/10/20 Anita Gillespie MD Medical Oncologist/Color Tester Medical Oncology 10/07/20 Tabitha Hurley MD [address] [address] Consulting Physician Rheumatology 10/22/21 documented as of this encounter
--- OUTSIDE RECORDS SUMMARY | 2024-10-28 06:12 | XMS_ITS | Encounter Summary ---
Author Organization [facility] Address [address] [place] [address] Phone Care Team Providers Care Machine Molder Name Role Phone Guero Colunga DO Primary Care Provider [phone] Amber Montesinos RN Unavailable [phone] Jil Duncan MD Unavailable [phone] Anita Gillespie MD Unavailable [phone] Tabitha Hurley MD Unavailable [phone] Encounter Details Date Type Department Care Team (Late st Contact Info) Description 03/23/2022 Orders Only [facility] Infectious Diseases [address] [place] [address] [address] [place] [address] Jil Duncan MD [address] [place] [address] [address] [place] [address] 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HCC) (Primary Dx) [...] on file 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 Gender Identity Not on file Sexual Orientation Straight 08/22/2021 9: 23 AM CDT documented as of this encounter Miscellaneous Notes * Addendum Note - Ny Griffin - 03/23/2022 1:46 PM CDTAddended by: [place] GRIFFIN on: 03/31/2022 02:11 PM Modules accepted: Orders documented in this encounter Plan of Treatment Scheduled Orders Name Type Priority Associated Diagnoses Orde r Schedule CMV DNA QN, PCR Serum Microbiology Routine 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HCC) Once a week for 12 Occurrences starting 03/31/2022 until 03/23/2023 Scheduled Procedures Name Priority Associated Diagnoses Date/Ti me COLONOSCOPY Encounter for screening for colorectal cancer in high risk patient Family history of rectal cancer documented as of this encounter Visit Diagnoses Diagnosis 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
--- OUTSIDE RECORDS SUMMARY | 2024-10-28 06:12 | XMS_ITS | Encounter Summary ---
Author Organization [facility] Healthcare Address [address] [place] [address] Care Team Providers Care Shotblaster Name Role Phone Guero Colunga Primary Care Provider [phone] Amber Montesinos RN Unavailable [phone] Jil Duncan MD Unavailable [phone] Anita Gillespie MD Unavailable [phone] Tabitha Hurley MD Unavailable [phone] Encounter Details Date Type Department Care Team (Late st Contact Info) Description 06/10/2022 Telephone [facility] Transplant Liver [address] [address] [address] [place] [address] Amber Montesinos RN Social History [...] on file 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 * Telephone Encounter - Amber Vargas RN - 06/10/2022 2:52 PM CDT ----- Message from Beka Nichols sent at 06/10/2022 2:35 PM CDT ----- Regarding: blood work [facility] can[facility]t do the labs and no I didn???t. Going this weekend dealing with another sinus infection going to do home COVID test tonight documented in this encounter Plan of Treatment Scheduled Procedures Name Priority Associated Diagnoses Date/Ti me COLONOSCOPY Encounter for screening for colorectal cancer in high risk patient Family history of rectal cancer documented as of this encounter Visit Diagnoses Not on filedocumented in this encounter Care Teams Shotblaster Relationship Specialty Start Date End Date Guero Colunga DO PCP - General Internal Medicine 03/22/19 04/18/23 Amber Montesinos RN Wing Coverer Transplant 11/17/19 Jil Duncan MD Consulting Physician Infectious Diseases 01/10/20 Anita Gillespie MD Medical Oncologist/Gameplay Programmer Medical Oncology 10/07/20 Tabitha Hurley MD [address] [place] [address] Consulting Physician Rheumatology 10/22/21 documented as of this encounter
--- OUTSIDE RECORDS SUMMARY | 2024-10-28 06:12 | XMS_ITS | Encounter Summary ---
Author Organization [facility] Healthcare Address [address] [place] [address] Care Team Providers Care Fuse Cutter Name Role Phone Guero Colunga Primary Care Provider [phone] Amber Montesinos RN Unavailable [phone] Jil Duncan MD Unavailable [phone] Anita Gillespie MD Unavailable [phone] Tabitha Hurley MD Unavailable [phone] Encounter Details Date Type Department Care Team (Late st Contact Info) Description 04/13/2022 Documentation [facility] Transplant Liver [id number] [place], [place] [id number] Eli Brink Social History Tobacco Use Types [...] on file 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 Gender Identity Not on file Sexual Orientation Straight 08/22/2021 9: 23 AM CDT documented as of this encounter Plan of Treatment Scheduled Procedures Name Priority Associated Diagnoses Date/Ti me COLONOSCOPY Encounter for screening for colorectal cancer in high risk patient Family history of rectal cancer documented as of this encounter Visit Diagnoses Not on filedocumented in this encounter Care Teams Fuse Cutter Relationship Specialty Start Date End Date Guero Colunga DO PCP - General Internal Medicine 03/22/19 04/18/23 Amber Montesinos, RN Circulation Crew Leader Transplant 11/17/19 Jil Duncan MD Consulting Physician Infectious Diseases 01/10/20 Anita Gillespie MD Medical Oncologist/Animal Care Provider Medical Oncology 10/07/20 Tabitha Hurley MD [address] [facility] [address] [place] [address] Consulting Physician Rheumatology 10/22/21 documented as of this encounter
--- OUTSIDE RECORDS SUMMARY | 2024-10-28 06:12 | XMS_ITS | Encounter Summary ---
Author Organization [facility] Address [address] [place] [address] Phone Care Team Providers Care Collection Agent Name Role Phone Guero Colunga DO Primary Care Provider [phone] Amber Montesinos RN Unavailable [phone] Jil Duncan MD Unavailable [phone] Anita Gillespie MD Unavailable [phone] Tabitha Hurley MD Unavailable [phone] Encounter Details Date Type Department Care Team (Late st Contact Info) Description 04/23/2022 Orders Only [facility] ENT [address] [facility] Medical Office Building [address] [place] [address] Massiel Gastelum MD [address] [facility] [address] [place] [address] Social History Tobacco Use Types Packs/Day Years [...] on file 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 Per Dr Oriana Mcduffie to send antibiotic, Doxycycline sent to pharmacy. Patient said the Augmentin has not been working well for him probably since he has taken it so much. documented in this encounter Plan of Treatment Scheduled Procedures Name Priority Associated Diagnoses Date/Ti me COLONOSCOPY Encounter for screening for colorectal cancer in high risk patient Family history of rectal cancer documented as of this encounter Visit Diagnoses Not on filedocumented in this encounter Care Teams Collection Agent Relationship Specialty Start Date End Date Guero Colunga DO PCP - General Internal Medicine 03/22/19 04/18/23 Amber Montesinos RN Ordnance Technician Transplant 11/17/19 Jil Duncan MD Consulting Physician Infectious Diseases 01/10/20 Anita Gillespie MD Medical Oncologist/Mutuel Department Manager Medical Oncology 10/07/20 Tabitha Hurley MD [address] [address] Consulting Physician Rheumatology 10/22/21 documented as of this encounter
--- OUTSIDE RECORDS SUMMARY | 2024-10-28 06:12 | XMS_ITS | Encounter Summary ---
Author Organization [facility] Healthcare Address [address] [place] [address] Care Team Providers Care Mortgage Originator Name Role Phone Guero Colunga Primary Care Provider [phone] Amber Montesinos RN Unavailable [phone] Jil Duncan MD Unavailable [phone] Anita Gillespie MD Unavailable [phone] Tabitha Hurley MD Unavailable [phone] Encounter Details Date Type Department Care Team (Late st Contact Info) Description 03/13/2022 5:50 PM CDT Lab [address] [address] 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[facility]) Social History Tobacco Use Types Packs/Day Years [...] on file 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 Testing was performed by the NIA 6800 CMV Test ([employer] Testing performed at [facility]. Current interpretive data was last revised on 2021. Testing performed by: [facility], [address] [place]., [address] CMV DNA IU/mL 15,500(C) IUnits/mL [facility] Comment:Testing performed by : [facility], [address] [place]., [address] CMV DNA log IU/mL 4.19 log IUnits/mL [facility] Comment:Testing performed by : [facility], [address] [place]., [address] Blood 03/13/2022 5:49 PM CDT 03/16/2022 9:57 AM CDT us Ige Sonido Duncan MD LAB MICROBIOLOGY - GENERAL ORDERABLES Final Result [facility] [address] Department [place] [address] * BLOOD MISC TO ONEIDA (03/13/2022 2:27 PM CDT) Test name, ros[facility] Comment:Collection date/time has been modified to: 14:27:00. Previous collection date/time: 14:27:00. Misc See Footnote [facility] Comment: Test ? Result ?Flag ??Unit ??RefValue CMV Antiviral Resistance by NGS, P ??CMV UL97 mutations ? None Detected ? None Detected ??CMV UL54 mutations ? None Detected ? None Detected ??Ganciclovir ?Not Predicted ? Not Predicted ?Resistance ??Cidofovir Resistance ?? Not Predicted ? Not Predicted ??Foscarnet Resistance ?? Not Predicted ? Not Predicted ??CMV Quant >= 500 ? Yes ?IU/mL last 7 days? ADDITIONAL INFORMATION ?Testing performed using a laboratory-developed, ?next-generation sequencing assay with a variant detection ?cut-off of 15%. This assay only identifies ?resistance-associated mutations that have been defined in ?the published literature, and mutations that have not been ?characterized as associated with antiviral resistance are ?not specifically reported. Results obtained by different ?assay methods should not be used interchangeably. ?This test was developed and its performance characteristics ?determined by [facility] in a manner consistent with CLIA ?requirements. This test has not been cleared or approved by ?the U.S. Food and Drug Administration. ?Test Performed by: ?[facility] ?[address] [id number] ?Operator Technician: Jason Sandy M.D. Ph.D.; CLIA# [id number] Collection date/time has been modified to: 14:27:00. ??Previous collection date/time: 14:27:00. Blood 03/13/2022 2:27 PM CDT 03/17/2022 2:18 PM CDT Narrative [facility] - 06/17/2022 8:22 AM CDT CMV MUTATION Jil Duncan MD LAB BLOOD ORDERABLES Edite d Result - Final Performing Organization Address City/State/[facility] Co de Phone Number [facility] [address] [facility] Department [place] [address] documented in this encounter Visit Diagnoses Diagnosis 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 documented in this encounter Care Teams Mortgage Originator Relationship Specialty Start Date End Date Guero Colunga DO PCP - General Internal Medicine 03/22/19 04/18/23 Amber Montesinos, SHAILESH Course Instructor Transplant 11/17/19 Jil Duncan MD Consulting Physician Infectious Diseases 01/10/20 Anita Gillespie MD Medical Oncologist/Caramel Candy Maker Medical Oncology 10/07/20 Tabitha Hurley MD [address] [address] Consulting Physician Rheumatology 10/22/21 documented as of this encounter
--- OUTSIDE RECORDS SUMMARY | 2024-10-28 06:12 | XMS_ITS | Encounter Summary ---
Author Organization [facility] Address [address] [place] [address] Phone Care Team Providers Care Sap Analyst Name Role Phone Guero Colunga DO Primary Care Provider [phone] Amber Montesinos RN Unavailable [phone] Jil Duncan MD Unavailable [phone] Anita Gillespie MD Unavailable [phone] Tabitha Hurley MD Unavailable [phone] Encounter Details Date Type Department Care Team (Late st Contact Info) Description 04/07/2022 9:20 AM CDT Telemedicine [facility] ENT [address] 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 male. Chief Complaint: No chief complaint on file. HPI: Beka Nichols is a 27 y.o. male with h/o liver transplant, PTLD, CVID, initially referred by Dr. Gillespie, here for follow-up of recurrent sinusitis. He was last seen 02/17/[address] Used budesonide for a few days, then felt more dry and had nosebleed. Stopped the saline and the steroid. H/o epistaxis with steroid nasal spray in the past. Currently not using any mediations or saline. Rare use of Claritin, minimal benefit. On a good day, some nasal drainage, occ cough. On a bad day, difficulty breathing through his nose, general malaise, thick nasal drainage, facial pressure. Overall doing okay since he was last seen (more good days than bad), attributed it to the weather. He was treated with oral antibiotic 03/02/22. In review, he was treated with antibiotic in December. Over the winter, he was treated with multiple courses of abx including Augmentin, Levaquin. 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 H/o nasal fracture 06/16/21. Recurrent sinus infection issues pre-date this injury. Unclear whether breathing is more difficult or not after this injury. 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 Review of Systems The patient-completed Review of Systems was reviewed and was scanned as an attachment to this encounter. Objective There were no vitals taken for this visit. Physical Exam Voice quality is normal. Speaking in full sentences No cough. Assessment/Plan 1. Chronic pansinusitis 2. Immunocompromised patient (CMS/HCC) (HCC) Discussed option for resuming medical therapy and/or pursuing endoscopic sinus surgery in detail. Discussed role of ESS in management of chronic sinusitis. Currently patient is not bothered enough by his symptoms for regular medication nor surgery. Plan continued observation. Rec use of saline as able (spray or irrigation). Antibiotics as needed. Follow-up 3 months in office Michael Gastelum MD FACS Professor Department of Otolaryngology [facility] This was a telemedicine visit with Beka howell which took place via Telephone Other - patient preference. During the visit, I was located at home and the patient was located at home in the state [facility]. The patient visit started at 9:21 and ended at 9:37. My total encounter time on 04/07/2022was 18 minutes which was spent in the activities documented in the note. This includes time spent prior to the visit and after the visit in direct care of the patient. This time does not include timespent in any separately reportable services. The patient: has been informed that the visit may not be secure and acknowledged the information. The option of participating in a telephone or video visit during the [address] emergencywas explained to them. After being given [...] (HCC) documented in this encounter Care Teams Sap Analyst Relationship Specialty Start Date End Date Guero Colunga DO PCP - General Internal Medicine 03/22/19 04/18/23 Amber Montesinos, SHAILESH Locomotive Driver Transplant 11/17/19 Jil Duncan MD Consulting Physician Infectious Diseases 01/10/20 Anita Gillespie MD Medical Oncologist/Marketing Sales Consultant Medical Oncology 10/07/20 Tabitha Hurley MD [address] [facility] [address] [facility] [address] [place] [address] Consulting Physician Rheumatology 10/22/21 documented as of this encounter
--- OUTSIDE RECORDS SUMMARY | 2024-10-28 06:12 | XMS_ITS | Encounter Summary ---
Author Organization [facility] Healthcare Address [address] [place] [address] Care Team Providers Care Pmo Manager Name Role Phone Guero Colunga Primary Care Provider [phone] Amber Montesinos RN Unavailable [phone] Jil Duncan MD Unavailable [phone] Anita Gillespie MD Unavailable [phone] Tabitha Hurley MD Unavailable [phone] Encounter Details Date Type Department Care Team (Late st Contact Info) Description 05/17/2022 Orders Only [facility] Health Information Management [address] [place] [address] Scanning, Provider Social History Tobacco Use Types [...] on file 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 Gender Identity Not on file Sexual Orientation Straight 08/22/2021 9: 23 AM CDT documented as of this encounter Plan of Treatment Scheduled Procedures Name Priority Associated Diagnoses Date/Ti me COLONOSCOPY Encounter for screening for colorectal cancer in high risk patient Family history of rectal cancer documented as of this encounter Procedures Procedure Name Priority Date/Time Associated Diagnosis Comments SCAN - LABS 05/17/2022 12:34 PM CDT documented in this encounter Results * SCAN - LABS (05/17/2022 12:34 PM CDT) us Provider Scanning Final Result documented in this encounter Visit Diagnoses Not on filedocumented in this encounter Care Teams Pmo Manager Relationship Specialty Start Date End Date Guero Colunga DO PCP - General Internal Medicine 03/22/19 04/18/23 Amber Montesinos RN Procurement Clerk Transplant 11/17/19 Jil Duncan MD Consulting Physician Infectious Diseases 01/10/20 Anita Gillespie MD Medical Oncologist/Quiller Runner Medical Oncology 10/07/20 Tabitha Hurley MD [address] [facility] [address] [place] [address] Consulting Physician Rheumatology 10/22/21 documented as of this encounter
--- OUTSIDE RECORDS SUMMARY | 2024-10-28 06:12 | XMS_ITS | Encounter Summary ---
Author Organization [facility] Address [address] [place] [address] Phone Care Team Providers Care Welding Teacher Name Role Phone Guero Colunga DO Primary Care Provider [phone] Amber Montesinos RN Unavailable [phone] Jil Duncan MD Unavailable [phone] Anita Gillespie MD Unavailable [phone] Tabitha Hurley MD Unavailable [phone] Encounter Details Date Type Department Care Team (Late st Contact Info) Description 06/08/2022 Orders Only [facility] ENT [address] [facility] Medical Office Building [address] [place] [phone] Massiel Gastelum MD [address] [facility] [address] [place] [address] Social History Tobacco Use Types Packs/Day Years [...] file 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 Gender Identity Not on file Sexual Orientation Straight 08/22/2021 9: 23 AM CDT documented as of this encounter Ordered Prescriptions Prescription Sig Dispense Quantity Refills Last Filled Start Date End Date doxycycline (VIBRAMYCIN) 100 mg capsule Take 1 tablet/caps ule (100 mg total) by mouth 2 (two) times a day for 14 days 28 tablet/capsule 06/08/2022 06/22/2022 documented in this encounter Plan of Treatment Scheduled Procedures Name Priority Associated Diagnoses Date/Ti me COLONOSCOPY Encounter for screening for colorectal cancer in high risk patient Family history of rectal cancer documented as of this encounter Visit Diagnoses Not on filedocumented in this encounter Care Teams Welding Teacher Relationship Specialty Start Date End Date Guero Colunga DO PCP - General Internal Medicine 03/22/19 04/18/23 Amber Montesinos, SHAILESH Digester Operator Helper Transplant 11/17/19 Jil Duncan MD Consulting Physician Infectious Diseases 01/10/20 Anita Gillespie MD Medical Oncologist/Sales And Marketing Administrator Medical Oncology 10/07/20 Tabitha Hurley MD [address] [facility] [address] [place] [address] Consulting Physician Rheumatology 10/22/21 documented as of this encounter
--- OUTSIDE RECORDS SUMMARY | 2024-10-28 06:12 | XMS_ITS | Encounter Summary ---
Author Organization [facility] Address [address] [place] [address] Phone Care Team Providers Care Heel Cover Softener Name Role Phone Guero Colunga DO Primary Care Provider [phone] Amber Montesinos RN Unavailable [phone] Jil Duncan MD Unavailable [phone] Anita Gillespie MD Unavailable [phone] Tabitha Hurley MD Unavailable [phone] Reason for Visit * Reason Comments Follow-up Encounter Details Date Type Department Care Team (Latest Contact Info) Description 07/09/2022 10:40 AM CDT Office Visit [facility] Infectious Diseases [address] [place] [address] [address] [place] [address] Lisandra Auguste, AIDEN [address] [place] [address] [address] [place] [address] Cytomegalovirus infection, unspecified cytomegaloviral infection type (HCC) [...] on file 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 Gender Identity Not on file Sexual Orientation Straight 08/22/2021 9: 23 AM CDT documented as of this encounter Last Filed Vital Signs Vital Sign Reading Time Taken Comments Blood Pressure 109/67 07/09/2022 10:32 AM CDT Pulse 74 07/09/2022 10:32 AM CDT Temperature 36.6 ??C (97.9 ??F) 07/09/2022 10:32 AM C DT Respiratory Rate - - Oxygen Saturation - - Inhaled Oxygen Concentration - - Weight 57.2 kg (126 lb) 07/09/2022 10:32 AM CDT Height 172 cm (5' 7.72 ) 07/09/2022 10:32 AM CDT Body Mass Index 19.32 07/09/2022 10:32 AM CDT documented in this encounter Progress Notes * Lisandra Auguste, AIDEN - 07/09/2022 10:40 AM CDT Infectious Diseases Return Visit Patient Name: Beka Nichols [facility] INFECTIOUS DISEASES [address] [place] [id number] Subjective Chief complaint of CMV viremia HPI: Beka Nichols is a 27 y.o. male with a history of refractor [...] [place] [id number]. He was also noted to have lymphadenopathy [...] to have increased CMV levels starting 06/20/22. Interval History: Patient presents to ID clinic today accompanied by his mother for urgent visit. [facility] for [facility] flank [facility] and was diagnosed with a kidney stone which he later passed at home. He currently denies any urinary symptoms. He does report over the past month he has started having increased fatigue and night sweats. Also had some fevers at home a few weeks ago. He hashad issues with recurrent sinusitis for quite some time and currently has sinus congestion along with an intermittently productive cough. There were findings of right middle lobe pneumonia on CT images from the ED. He reports he was concerned about pneumonia given his respiratory symptoms includingsome shortness of breath with exertion. On lab review, his liver enzymes have continued to elevate with bilirubin on 07/05 of 2.8. His mother has noticed some scleral icterus over the past few days. Hedenies nausea, vomiting, or abdominal pain but does continue to have chronic diarrhea. On exam he has a new area of swelling to his right thigh that is tender at times. He continues on maribavir BID. ROS: Review of Systems Constitutional: Positive for diaphoresis, fatigue and fever. Negative for chills. HENT: Positive for congestion, sinus pressure and sinus pain. Respiratory: Positive for cough and shortness of breath (w/ exertion). Negative for wheezing. Cardiovascular: Negative for chest pain. Gastrointestinal: Positive for diarrhea. Negative for abdominal pain, nausea and vomiting. Genitourinary: Negative for difficulty urinating, frequency and urgency. Skin: Negative for rash. +new R thigh nodule Allergic/Immunologic: Positive for immunocompromised state. Hematological: Positive for adenopathy. 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 HOME MEDICATIONS : budesonide (Pulmicort) 0.5 mg/2 mL nebulizer solution maribavir 200 mg tablet tacrolimus (PROGRAF) 0.5 mg immediate-release capsule traZODone (DESYREL) 50 mg tablet ursodioL (ACTIGALL) 300 mg capsule Vitals: Most Recent : Vitals BP 109/67 (BP Location: Left arm, Patient Position: Sitting) Pulse 74 Temp 36.6 ??C (97.9 ??F) (Temporal) Ht 172 cm (5' 7.72 ) Wt 57.2 kg (126 lb) BMI 19.32 kg/m?? Physical Exam Constitutional: General: He is not in acute distress. Appearance: He is not toxic-appearing. HENT: Head: Normocephalic and atraumatic. Nose: Congestion present. Eyes: General: Scleral icterus present. Extraocular Movements: Extraocular movements intact. Cardiovascular: Rate and Rhythm: Normal rate and regular rhythm. Heart sounds: Normal heart sounds. No murmur heard. Pulmonary: Effort: Pulmonary effort is normal. No respiratory distress. Breath sounds: Normal breath sounds. Skin: General: Skin is warm and dry. Findings: No rash. Comments: Golf ball sized nodule to R thigh without erythema. Non tender on palpation. Neurological: General: No focal deficit present. Mental Status: He is alert and oriented to person, place, and time. Mental status is at baseline. Psychiatric: Mood and Affect: Mood normal. Behavior: Behavior normal. Thought Content: Thought content normal. Judgment: Judgment normal. Lab/Microbiology/Radiology/Diagnostic Review: Laboratory: Lab Results Component Value Date WBC 14.1 (H) 07/09/2022 HGB 11.2 (L) 07/09/2022 HCT 31.9 (L) 07/09/2022 MCV 98.5 (H) 07/09/2022 LABPLAT 228 07/09/2022 Lab Results Component Value Date NEUTROABS 5.4 07/09/2022 Lab Results Component Value Date GLUCOSE 134 07/09/2022 CALCIUM 8.8 07/09/2022 SODIUM 139 07/09/2022 POTASSIUM See Comment 07/09/2022 CO2 24 07/09/2022 CHLORIDE 108 07/09/2022 BUNSER 11 07/09/2022 CREATININE 0.71 (L) 07/09/2022 Estimated Creatinine Clearance: 124.2 mL/min (A) (by C-G formula based on SCr of 0.71 mg/dL (L)). Lab Results Component Value Date ALT 84 (H) 07/09/2022 AST 102 (H) 07/09/2022 ALKPHOS 312 (H) 07/09/2022 BILITOT 2.4 (H) 07/09/2022 Imagin/4/22 CT Abdomen Pelvis WO Contrast FINDINGS: Partially visualized consolidation within the right middle lobe with areas of [id number] may represent sequela of aspiration or atypical [...] osseous fusion of the lower lumbosacral spine. Impression: 1. New mild right hydroureteronephrosis with apparent obstructing stone near the right ureterovesicular junction. 2. Unchanged retroperitoneal, mesenteric, and paraesophageal lymphadenopathy compatible with patient's known non-Hodgkin's lymphoma. 3. Consolidation in the right middle lobe may represent sequela of aspiration or atypical mycobacterial infection. Assessment/Plan 27 y.o. male with history of refractory ITP [...] CMV levels but continued low level viremia. Here today for urgent visit for multiple complaints. Cytomegalovirus infection (CMS/HCC) - Multiple medical complaints today including fatigue, subjective fevers, sinus congestion, cough, and night sweats in the setting of worsening CMV viremia, worsening liver enzymes, and recent imaging showing consolidation to right middle lobe. Given he is immunocompromised and medically complex itwas decided to admit for further work up. [...] He has always reported compliance with medications. Follow up: - to be determined based on inpatient course Visit Diagnosis: 1. Cytomegalovirus infection, unspecified cytomegaloviral infection type (HCC) Lisandra Ramirez the Nurse Practitioner, have reviewed and examined this patient with thesupervising MD present in the office suite, Dr. Duncan Cosigned by Jil Duncan MD at 07/10/2022 1:53 PM CDT Associated attestation - Jil Duncan MD - 07/10/2022 1:53 PM CDT I have seen and examined the patient. I agree with the findings and plan of care . 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 He responded initially to Maribavir ( started in mid-March 2022 ) but has relapsed. He currently does not feel well with fatigue, worsening hepatitis and cough and rebound CMV viremia. Possibilities include rebound CMV disease or a reactivation with another oppurtunistic infection or lymphoma. Will plan on CMV resistance testing especially to Maribavir ( will co-ordinate with labmedicine) . Will update inpatient transplant ID team for work up and plan. documented in this encounter Miscellaneous Notes * Assessment & Plan Note - Lisandra Auguste NP - 07/09/2022 8:53 PM CDT Associated Problem(s): Cytomegalovirus infection (HCC) - Multiple medical complaints today including fatigue, subjective fevers, sinus congestion, cough, and night sweats in the setting of worsening CMV viremia, worsening liver enzymes, and recent imaging showing consolidation to right middle lobe. Given he is immunocompromised and medically complex itwas decided to admit for further work up. [...] He has always reported compliance with medications. documented in this encounter Plan of Treatment Scheduled Procedures Name Priority Associated Diagnoses Date/Ti me COLONOSCOPY Encounter for screening for colorectal cancer in high risk patient Family history of rectal cancer documented as of this encounter Visit Diagnoses Diagnosis Cytomegalovirus infection, unspecified cytomegaloviral infection type (HCC)- Primary documented in this encounter Additional Health Concerns Infection Onset Date Last Indicated Resolved Time COVID: Suspected 07/09/2022 07/09/2022 07/09/2022 2:27 PM CDT Adenovirus, contact + droplet 07/09/2022 07/09/2022 07/16/2022 3:05 AM CDT Rhino/Enterovirus 07/09/2022 07/09/2022 07/16/2022 3:05 AM CDT documented as of this encounter Care Teams Heel Cover Softener Relationship Specialty Start Date End Date Guero Colunga DO PCP - General Internal Medicine 03/22/19 04/18/23 Amber Montesinos RN Heel Brusher Transplant 11/17/19 Jil Duncan MD Consulting Physician Infectious Diseases 01/10/20 Anita Gillespie MD Medical Oncologist/Earth Burner Medical Oncology 10/07/20 Tabitha Hurley MD [address] [facility] [address] [address] Consulting Physician Rheumatology 10/22/21 documented as of this encounter
--- OUTSIDE RECORDS SUMMARY | 2024-10-28 06:12 | XMS_ITS | Encounter Summary ---
Author Organization [facility] Address [address] [place] [address] Care Team Providers Care Clubhouse Attendant Name Role Phone Guero Colunga Primary Care Provider [phone] Amber Montesinos RN Unavailable [phone] Jil Duncan MD Unavailable [phone] Anita Gillespie MD Unavailable [phone] Tabitha Hurley MD Unavailable [phone] Encounter Details Date Type Department Care Team (Late st Contact Info) Description 03/13/2022 Documentation [facility] Transplant Liver [address] [address] [address]stop [phone] [place], [place] [id number] Amber Montesinos RN Social History Tobacco Use [...] on file 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 Reviewed with Madelaine Martínez NP with transplant hepatology. Patient only taking 0.5mg daily of tacrolimus. No dose change indicated at this time. Will monitor labs closely. Sent patient/mom [employer] message to review and let them know to please monitor for any side effects of high tacrolimus levels. Encouraged him to try to stay hydrated. documented in this encounter Plan of Treatment Scheduled Procedures Name Priority Associated Diagnoses Date/Ti me COLONOSCOPY Encounter for screening for colorectal cancer in high risk patient Family history of rectal cancer documented as of this encounter Visit Diagnoses Not on filedocumented in this encounter Care Teams Clubhouse Attendant Relationship Specialty Start Date End Date Guero Colunga DO PCP - General Internal Medicine 03/22/19 04/18/23 Amber Montesinos RN Industrial Engineering Transplant 11/17/19 Jil Duncan MD Consulting Physician Infectious Diseases 01/10/20 Anita Gillespie MD Medical Oncologist/Hydrogen Plant Operator Medical Oncology 10/07/20 Tabitha Hurley MD [address] [facility] [address] [place] [address] Consulting Physician Rheumatology 10/22/21 documented as of this encounter
--- OUTSIDE RECORDS SUMMARY | 2024-10-28 06:12 | XMS_ITS | Encounter Summary ---
Author Organization [facility] Address [address] [place] [address] Phone Care Team Providers Care Mill Dresser Name Role Phone Guero Colunga DO Primary Care Provider [phone] Amber Montesinos RN Unavailable [phone] Jil Valdez MD Unavailable [phone] Anita Gillespie MD Unavailable [phone] Tabitha Hurley MD Unavailable [phone] Massiel Gastelum MD Unavailable [phone] Encounter Details Date Type Department Care Team (Late st Contact Info) Description 05/13/2022 8:15 AM CDT Office Visit [facility] Oncology [address] [facility] Advanced Medicine 7th [place] [address] [place] [address] Anita Gillespie MD [address] [place] [address] 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) (Primary Dx); Immunocompromised (CMS/HCC) (HCC) Social History Tobacco Use Types [...] on file Legal Sex Male 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 Gender Identity Not on file Sexual Orientation Straight 08/22/2021 9: 23 AM CDT documented as of this encounter Last Filed Vital Signs Vital Sign Reading Time Taken Comments Blood Pressure 109/69 05/13/2022 7:30 AM CDT Pulse 62 05/13/2022 7:30 AM CDT Temperature 36.6 ??C (97.9 ??F) 05/13/2022 7:28 AM CD T Respiratory Rate 18 05/13/2022 7:28 AM CDT Oxygen Saturation 99% 05/13/2022 7:30 AM CDT Inhaled Oxygen Concentration - - Weight 56.3 kg (124 lb 3.2 oz) 05/13/2022 7:28 A M CDT Height - - Body Mass Index 18.88 05/02/2022 7:22 AM CDT documented in this encounter Progress Notes * Ally Childress, RN - 05/13/2022 8:15 AM CDT The patient will be given the Fact Sheet for Patients, Parents and Caregivers when they arrive attheir appointment which goes over this information that they have been given verbally today. The following has been discussed with the patient: 1. The U.S. Food and Drug Administration (FDA) has issued an Emergency Use Authorization (EUA) to permit the emergency use of an unapproved monoclonal antibody therapy for pre-exposure prophylaxis ofCOVID-19. 2. This therapy is given through two separate intramuscular injections given one after the other, 1into each buttock, with an additional 1 hour observation period. 3. There is limited information known about the safety or effectiveness of using monoclonal antibodies to prevent COVID-19. 4. One of the possible side effects of this therapy is an allergic reaction. Allergic reactions canhappen during and after the administration. Symptoms can include chills, nausea, headache, shortness of breath, low blood pressure, wheezing, swelling of the lips, face, or throat, rash including hives, itching, muscle aches, and dizziness. The patient will be observed closely for this and treated as needed. Serious cardiac (heart) events have happened after this therapy, but were not common. In people with risk factors for cardiac events (including history of heart attack), more people who received this therapy experienced serious cardiac events than people who did not receive it. Symptoms can include pain, pressure, discomfort in the chest, arms, neck, back, stomach or jaw, as well as shortness of breath, feeling tired or weak, nauseous, or swelling in ankles or lower legs. 5. Serious and unexpected side effects may happen. This therapy is still being studied so it is possible that all of the risks are not known at this time. It is possible that this therapy may reduce your body's immune response to a COVID- 19 vaccine. If you have received a COVID-19 vaccine, you should wait to receive EVUSHELD until at least 2 weeks after COVID-19 vaccination 6. The CDC recommends deferring COVID vaccination after this therapy, as otherwise it may interferewith vaccine efficacy. The length of time to defer is unknown 7. The side effects of getting any medicine by intramuscular injection may include pain, bruising of the skin, soreness, swelling, and possible bleeding or infection at the injection site. 8. It is the patient's choice to be treated or not to be treated with this therapy. Should they decide not to receive this medication or stop it at any time, it will not change the standard medical care. 9. Alternatives to this therapy for prevention of COVID-19 include vaccines. Vaccines to prevent COVID-19 are approved or available under Emergency Use Authorization. Use of this therapy does not replace vaccination against COVID- 19. For more information about other medicines authorized for treatment or prevention of COVID-19 go to https://www.fda.gov/vxxuptlon-rbxhlwkbqdxnhbj-dlsqymno/mcm-legal-r pmrhuclhk-ung-vygphm-framework/emergency-useauthorization. The patient agrees, at this time, to proceed with scheduling the injection. * Almita Cerda MD - 05/13/2022 12:00 AM CDT PATIENT NAME: ADI NICHOLS : 1995 JUSTEN: 05/13/2022 DIAGNOSES: 1. 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 2. 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 3. Bilateral pulmonary emboli diagnosed on 10/19/2017. TREATMENT AND DISEASE COURSE: 1. R-CHOP x 1, 08/25/2017. 2. Dose adjusted EPOCH-R x 5, 09/15/2017 - 12/2017. Post-C2 PET: [place] (5PS = 4), CR post C5 3. IT chemotherapy (MTX), only with cycle 3 on 10/06/2017, complicated by intracranial hypotension. 4. R cervical LNBx, 01/06/19, EBV+ florid follicular hyperplasia, c/w possible early PTLD. 5. Biopsy of 2.7 cm hyperenhancing lesion in liver on 02/02/2020, demonstrated necrosis and chronic inflammation. Repeat MRI with slight decrease in size. CT scan of liver 04/05/2020 with continued decrease in size of his liver 6. Liver biopsy, 05/14/2020, T-cell predominant inflammatory infiltration without evidence of B or T-cell lymphoma. INTERVAL HISTORY: Mr. Nichols returns to the [facility] for continued follow-up of his history of PTLD and recurrent CMV infection. He was last seen in clinic on 02/11/2022. Since that time, he has been doingwell. He continues to follow closely with Infectious Disease and was found to have recurrent CMV viremia on serial monitoring, since stopping valganciclovir. He was started on maribavir with improvement in his CMV titers, and is tolerating the medication well, aside from a strong metallic taste. Hecontinues to have recurrent sinusitis symptoms that are largely unchanged. He follows with Dr. Gastelum, from ENT, and was prescribed budesonide nasal spray and a course of Augmentin with minimal benefit . He eventually improved following a course of doxycycline. He lost a few pounds over the past few months which he relates to increased physical activity during summer. Review of systems is negative for fever, chills, drenching night sweats, unintentional weight loss, shortness of breath, nausea, emesis, abdominal pain, diarrhea, or rash. PHYSICAL EXAMINATION: Vital Signs: Weight 56.3 kg, which is decreased by 1.5 kg. Blood pressure 109/69, pulse 62, respirations 18, temperature 36.6, oxygen saturation 99% on room air. General: Well-appearing young man, who is accompanied by his mother. Performance Status: 0. Lungs: Clear to auscultation. Nodes: A cluster of left mid-posterior cervical lymph nodes, subcentimeter. Two right posterior cervical lymph nodes, subcentimeter. Two right axillary lymph nodes, subcentimeter. A cluster of left axillary lymph nodes, largest is 1.5 cm and the rest are subcentimeter. Two inguinal lymph nodes, largest is 1.5-2 cm and the others is subcentimeter. Extremities: No edema. Skin: No rash or lesions. LABORATORIES: WBC 7.3, ANC 1.7, ALC 3.2, hemoglobin 12.7, platelets 155. Chemistries notable for total bilirubin 2.1, AST 111, ALT 81, alk phos 338. LDH 314. RADIOGRAPHS: MRCP with and without contrast on 05/02/2022 showed no biliary ductal dilation and postsurgical changes of liver transplantation with stable lymphadenopathy above and below the diaphragm, in keeping with known posttransplant lymphoproliferative disorder. No suspicious liver lesion. IMPRESSION AND PLAN: 1. History of E-FCC-sksrlvoj posttransplant lymphoproliferative disorder, Naidne-De La Cruz virus positive, stage EMY, IPI 3 (stage, LDH, extranodal sites). This 27-year-old gentleman is now over 4 years status post 1 cycle of R-CHOP and 5 cycles of dose-adjusted EPOCH-R. He has never had any evidence of recurrence. He has had multiple lymph node biopsies, most recently in October 2021, which showed CMV lymphadenitis. His nodes had slowly improved on valganciclovir, although this was recently stopped by Infectious Disease, and he is now on maribavir instead (as detailed below). We will see him back in 3 months, but he knows to call us in the interim for any questions or concerns. 2. Multiply recurrent sinus infections. The patient has a sinus infection once or twice a month. Hederives transient benefit from oral antibiotics, most recently doxycycline. He follows with Dr. Gastelum from ENT. 3. Common variable immunodeficiency. The patient remains on home cutaneous immunoglobulin (HyQvia) and will continue this indefinitely. 4. History of liver transplant. The patient remains on tacrolimus 0.5 b.i.d. His LFTs were slightlyincreased today, likely due to recent rise in CMV. He was recently started on maribavir which has not been associated with LFT abnormalities. 5. Cytomegalovirus viremia. The patient follows with Dr. Valdez and Dr. Auguste in Infectious Disease. His valganciclovir was stopped on 02/11/2022 given low, albeit detectable, CMV titers. Upon serial monitoring, his CMV titer eliel up to maximum of 15,500 on 03/13/2022, and improved to 228 on 04/28/2022 following initiation of maribavir. Maribavir is a an antiviral that inhibits the protein kinase activity of humang CMV enzymes pUL97. The SOLSTICE trial was a phase 3 RCT that randomized (2:1) 352 patients with hematopoietic-cell (40%) or solid- organ transplant recipients (60%) and relapsed /refractory CMV to 8 weeks of maribavir versus clinical investigator choice (valganciclovir, ganciclovir, foscarnet, or cidofovir). By the end of week 8, CMV clearance was achieved in 55.7% of patients on maribavir versus 23.9% on clinical investigator choice (p<0.001). Interestingly, sustained CMV clearance at week 16 was only 18.7% versus 10.3% (p=0.013). The toxicity profile was notable for GI side effects (N/V/D 15-20%) and dysgeusia (37%; as reported by our patient), and lower rates of WATSON and cytopenias [Felix et al. Clinical Infectious Diseases 2020]. 6. Nonspecific inflammatory arthritis. The patient follows intermittently with Dermatology. 7. Fertility testing. He requested referral / order for semen analysis as he and his girlfriend arefamily planning. 8. Healthcare maintenance. The patient had the J&J vaccine on 02/08/2021. He is at high risk for COVID and we discussed this today as well as previously. He was agreeable to proceed with Evusheld. The patient was seen and discussed with Dr. Anita Gillespie, who formulated the plan of care. ELECTRONICALLY SIGNED - 05/16/2022 02:13 PM Almita Cerda M.D. Fellow I have seen and examined the patient and agree with the findings and plan of care as documented by and/or discussed with Almita Cerda M.D.. ELECTRONICALLY SIGNED - 05/18/2022 12:15 PM Anita Gillespie M.D. data processing consultant [facility] Chair in Medical Oncology RS/NB/lw cc: LENO AGUSTIN MD [address] [facility] [address], [place] [address] GUERO COLUNGA DO [address] [place] [address] / JIL VALDEZ M.D. [address] [place] [address] LINDA CHAPA MD [address] [place] [address] [address] [place] [address] / documented in this encounter Miscellaneous Notes * Addendum Note - Ally Childress RN - 05/13/2022 8:15 AM CDTAddended by: ALLY CHILDRESS on: 12/29/2022 10:43 AM Modules accepted: Orders D SUPERVISOR documented in this encounter Plan of Treatment Scheduled Procedures Name Priority Associated Diagnoses Date/Ti me COLONOSCOPY Encounter for screening for colorectal cancer in high risk patient Family history of rectal cancer documented as of this encounter Results * (ABNORMAL) Lactate dehydrogenase (LD) (12/30/2022 7:02 AM BREAD SUPERVISOR) Lactate dehydrogenase (LDH) 312(H) 100 - 250 Units/L [facility] Comment:Testing performed by : [facility], [address] [place] [phone] Blood 12/30/2022 7:02 AM BREAD SUPERVISOR 12/30/2022 7:03 AM BREAD SUPERVISOR Anita Gillespie MD LAB BLOOD ORDERABLES Final Result [facility] Department [place] [address] * (ABNORMAL) Comprehensive metabolic panel (12/30/2022 7:02 AM BREAD SUPERVISOR) [facility] Sodium 142 135 - 145 mmol/L [facility] Comment:Testing performed by : [facility], [address] [place] [phone] Potassium, pl 4.4 3.3 - 4.9 mmol/L [facility] Comment:Testing performed by : [facility], [address] [place] [phone] Chloride 110 97 - 110 mmol/L [facility] Comment:Testing performed by : [facility], [address] [place] [phone] CO2 25 22 - 32 mmol/L [facility] Comment:Testing performed by : [facility], [address] [place] [phone] Anion gap 7 2 - 15 mmol/L [facility] Comment:Testing performed by : [facility], [address] [place] [phone] BUN 7(L) 8 - 25 mg/dL [facility] Comment:Testing performed by : [facility], [address] [place] [phone] Creatinine 0.61(L) 0.80 - 1.30 mg/dL [facility] Comment:Testing performed by : [facility], [address] [place] [phone] Glucose 95 70 - 199 mg/dL [facility] Comment: Interpretive Data Fasting glucose >/= [...] was last revised 2022. Testing performed by: [facility], [address] [place] [phone] Calcium 8.9 8.5 - 10.3 mg/dL [facility] Comment:Testing performed by : [address] [phone] Bilirubin, total 1.5(H) 0.1 - 1.2 mg/dL [facility] Comment:Testing performed by : [address] [phone] Protein, pl 5.9(L) 6.5 - 8.5 g/dL [facility] Comment:Testing performed by : [address] [phone] Albumin 3.4(L) 3.5 - 5.0 g/dL [facility] Comment:Testing performed by : [address] [phone] Alk phos 315(H) 40 - 130 Units/L [facility] Comment:Testing performed by : [address] [phone] ALT 45 7 - 55 Units/L [facility] Comment:Testing performed by : [address] [address] AST 67(H) 10 - 50 Units/L [facility] Comment:Testing performed by : [address] [phone] Blood 12/30/2022 7:02 AM BREAD SUPERVISOR 12/30/2022 7:03 AM BREAD SUPERVISOR Anita Gillespie MD LAB BLOOD ORDERABLES Final Result [facility] Department [place] [address] * (ABNORMAL) CBC with auto differential (12/30/2022 7:02 AM BREAD SUPERVISOR) WBC 7.2 3.8 - 9.8 K/cumm [facility] Comment:Testing performed by : [facility], [address] [place] [phone] Hgb 14.9 13.8 - 17.2 g/dL [facility] Comment:Testing performed by : [address] [address] Hct 41.5 40.7 - 50.3 % [facility] Comment:Testing performed by : [address] [phone] Plt 196 140 - 440 K/cumm [facility] Comment:Testing performed by : [facility], [address] [place] [phone] MPV 8.7 6.8 - 10.4 fL [facility] Comment:Testing performed by : [address] [phone] RBC 4.04(L) 4.50 - 5.70 M/cumm [facility] Comment:Testing performed by : [address] [address] MCV 102.6(H) 80.0 - 97.6 fL [facility] Comment:Testing performed by : [facility], [address] [place] [phone] MCH 36.8(H) 26.7 - 33.7 pg [facility] Comment:Testing performed by : [address] [phone] MCHC 35.9(H) 32.7 - 35.5 g/dL [facility] Comment:Testing performed by : [address] [phone] RDW CV 17.0(H) 11.8 - 14.6 % [facility] Comment:Testing performed by : [facility], [address] [place] [phone] NRBC abs 0.00 0.00 - 0.01 K/cumm [facility] Comment:Testing performed by : [facility], [address] [place] [phone] Blood 12/30/2022 7:02 AM BREAD SUPERVISOR 12/30/2022 7:03 AM BREAD SUPERVISOR us Anita Gillespie MD LAB BLOOD ORDERABLES Final Result [facility] Department of Laboratories [place], [place] [id number] documented in this encounter Visit Diagnoses Diagnosis 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 Immunocompromised (HCC) Unspecified immunity deficiency documented in this encounter Orders Appointment Requests Count Last Ordered Date Fi rst Ordered Date ONCBCN CLINIC APPOINTMENT REQUEST 2 023 05/13/2022 ONCBCN LAB APPOINTMENT 1 12/30/2022 INFUSION APPT REQUEST 90 MIN 1 05/13/2022 documented in this encounter Additional Health Concerns Infection Onset Date Last Indicated Resolved Time COVID: Suspected 07/09/2022 07/09/2022 07/09/2022 2:27 PM CDT Adenovirus, contact + droplet 07/09/2022 07/09/2022 07/16/2022 3:05 AM CDT Rhino/Enterovirus 07/09/2022 07/09/2022 07/16/2022 3:05 AM CDT documented as of this encounter Care Teams Mill Dresser Relationship Specialty Start Date End Date Guero Colunga DO PCP - General Internal Medicine 03/22/19 04/18/23 Amber Montesinos, SHAILESH Silk Washing Machine Operator Transplant 11/17/19 Jil Valdez MD Consulting Physician Infectious Diseases 01/10/20 Anita Gillespie MD Medical Oncologist/Digital Marketing Consultant Medical Oncology 10/07/20 Tabitha Hurley MD [address] [facility] [address] [place], [place] [id number] Consulting Physician Rheumatology 10/22/21 Massiel Gastelum MD [address] [place] [address] Consulting Physician Otolaryngology 08/27/22 documented as of this encounter
--- OUTSIDE RECORDS SUMMARY | 2024-10-28 06:12 | XMS_ITS | Encounter Summary ---
Author Organization [facility] Healthcare Address [address] [place] [address] Care Team Providers Care Customer Assistance Representative Name Role Phone Guero Colunga Primary Care Provider [phone] Amber Montesinos RN Unavailable [phone] Jil Duncan MD Unavailable [phone] Anita Gillespie MD Unavailable [phone] Tabitha Hurley MD Unavailable [phone] Encounter Details Date Type Department Care Team (Late st Contact Info) Description 06/30/2022 Orders Only [facility] Health Information Management [address] [place] [address] Scanning, Provider Social History Tobacco Use Types [...] on file Legal Sex Male 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 ICT 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 Gender Identity Not on file Sexual Orientation Straight 08/22/2021 9: 23 AM CDT documented as of this encounter Plan of Treatment Scheduled Procedures Name Priority Associated Diagnoses Date/Ti me COLONOSCOPY Encounter for screening for colorectal cancer in high risk patient Family history of rectal cancer documented as of this encounter Procedures Procedure Name Priority Date/Time Associated Diagnosis Comments SCAN - LABS 06/30/2022 11:09 PM CDT documented in this encounter Results * SCAN - LABS (06/30/2022 11:09 PM CDT) us Provider Scanning Final Result documented in this encounter Visit Diagnoses Not on filedocumented in this encounter Care Teams Customer Assistance Representative Relationship Specialty Start Date End Date Guero Colunga DO PCP - General Internal Medicine 03/22/19 04/18/23 Amber Montesinos RN Center Director Lead Teacher Transplant 11/17/19 Jil Duncan MD Consulting Physician Infectious Diseases 01/10/20 Anita Gillespie MD Medical Oncologist/Damper Fitter Medical Oncology 10/07/20 Tabitha Hurley MD [address] [facility] [address] [place] [address] Consulting Physician Rheumatology 10/22/21 documented as of this encounter
--- OUTSIDE RECORDS SUMMARY | 2024-10-28 06:12 | XMS_ITS | Encounter Summary ---
Author Organization [facility] Address [address] [place] [address] Phone Care Team Providers Care Freezer Machine Operator Name Role Phone Guero Colunga DO Primary Care Provider [phone] Amber Montesinos RN Unavailable [phone] Jil Duncan MD Unavailable [phone] Anita Gillespie MD Unavailable [phone] Tabitha Hurley MD Unavailable [phone] Reason for Visit * Reason Onset Date Comments labs 05/18/2022 Encounter Details Date Type Department Care Team (Late st Contact Info) Description 05/18/2022 Telephone [facility] Infectious Diseases [address] [place] [phone] Ny Griffin Arianna labs Social History [...] on file Legal 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 * Telephone Encounter - Jil Duncan MD - 05/20/2022 5:00 PM CDT Response to the message: Yes. Do you know how many weeks of Maribavir he completed ? Thanks Ige * Telephone Encounter - Ny Griffin - 05/18/2022 4:12 PM CDT CNV levels: 04/28/22: 228 04/17/22: 340 Looks like they are drawing every 2 weeks, is that ok? documented in this encounter Plan of Treatment Scheduled Procedures Name Priority Associated Diagnoses Date/Ti me COLONOSCOPY Encounter for screening for colorectal cancer in high risk patient Family history of rectal cancer documented as of this encounter Visit Diagnoses Not on filedocumented in this encounter Care Teams Freezer Machine Operator Relationship Specialty Start Date End Date Guero Colunga DO PCP - General Internal Medicine 03/22/19 04/18/23 Amber Montesinos, SHAILESH Fire Alarm Inspector Transplant 11/17/19 Jil Duncan MD Consulting Physician Infectious Diseases 01/10/20 Anita Gillespie MD Medical Oncologist/Reject Opener And Filler Medical Oncology 10/07/20 Tabitha Hurley MD [address] [facility] 14 [place] [address] Consulting Physician Rheumatology 10/22/21 documented as of this encounter
--- OUTSIDE RECORDS SUMMARY | 2024-10-28 06:12 | XMS_ITS | Encounter Summary ---
Author Organization [facility], [facility] Address [address] [place] [address] Phone Care Team Providers Care City Route Driver Name Role Phone Guero Colunga DO Primary Care Provider [phone] Amber Montesinos RN Unavailable [phone] Jil Duncan MD Unavailable [phone] Anita Gillespie MD Unavailable [phone] Tabitha Hurley MD Unavailable [phone] Encounter Details Date Type Department Care Team (Late st Contact Info) Description 07/09/2022 Telephone [facility] Infectious Diseases [address] [place] [address] [address] [place] [address] Lisandra Auguste, AIDEN [address] [place] [address] Social History Tobacco Use Types Packs/Day Years [...] on file Legal 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 Plan to admit for work up of CMV viremia, possible RML pneumonia, cough, SOB, sinus congestion, worsening liver enzymes, fatigue, night sweats, and new nodules to right thigh. No beds available at this time on medicine or oncology. Reservation made for medicine bed. If oncology bed available sooner this would be preferred. [facility] to start work up. Spoke with AIDEN Cosme regarding patient. ID workup recommended: CT chest and CT sinus Blood cultures x 2 including fungal culture Serum crypto Ag, Urine histo Ag, Serum histo Ab CMV PCR and resistance testing CBC and CMP During admission he will need to be seen by ENT, dermatology, and hepatology documented in this encounter Plan of Treatment Scheduled Procedures Name Priority Associated Diagnoses Date/Ti me COLONOSCOPY Encounter for screening for colorectal cancer in high risk patient Family history of rectal cancer documented as of this encounter Visit Diagnoses Not on filedocumented in this encounter Care Teams City Route Driver Relationship Specialty Start Date End Date Guero Colnuga DO PCP - General Internal Medicine 03/22/19 04/18/23 Amber Montesinos RN Cyber Security Manager Transplant 11/17/19 Jil Duncan MD Consulting Physician Infectious Diseases 01/10/20 Anita Gillespie MD Medical Oncologist/Gas Reverser Medical Oncology 10/07/20 Tabitha Hurley MD [address] [facility] 14 [place] [address] Consulting Physician Rheumatology 10/22/21 documented as of this encounter
--- OUTSIDE RECORDS SUMMARY | 2024-10-28 06:12 | XMS_ITS | Encounter Summary ---
Author Organization [facility] Address [address] [facility] [address] [address] [place] [address] Care Team Providers Care Test Engineer Name Role Phone Guero Colunga Primary Care Provider [phone] Amber Montesinos RN Unavailable [phone] Jil Duncan MD Unavailable [phone] Anita Gillespie MD Unavailable [phone] Tabitha Hurley MD Unavailable [phone] Encounter Details Date Type Department Care Team (Late st Contact Info) Description 03/13/2022 2:30 PM CDT Lab [facility] Outpatient Lab at [address] [address] Autoimmune hepatitis (CMS/HCC) (HCC); Chronic pansinusitis; 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HCC); Cytomegalovirus infection, unspecified cytomegaloviral infection type (HCC); watermaster current use of immunosuppressive drug; 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); On antiviral therapy; 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) Social [...] on file 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 Gender Identity Not on file Sexual Orientation Straight 08/22/2021 9: 23 AM CDT documented as of this encounter Plan of Treatment Scheduled Procedures Name Priority Associated Diagnoses Date/Ti me COLONOSCOPY Encounter for screening for colorectal cancer in high risk patient Family history of rectal cancer documented as of this encounter Visit Diagnoses Diagnosis Autoimmune hepatitis (CMS/HCC) (HCC) Autoimmune hepatitis Chronic pansinusitis Other chronic sinusitis 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 Cytomegalovirus infection, unspecified cytomegaloviral infection type (HCC) watermaster current use of immunosuppressive drug 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) Other neutropenia On antiviral therapy 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) documented in this encounter Care Teams Test Engineer Relationship Specialty Start Date End Date Guero Colunga DO PCP - General Internal Medicine 03/22/19 04/18/23 Amber Montesinos RN Lockstitch Lining Maker Transplant 11/17/19 Jil Duncan MD Consulting Physician Infectious Diseases 01/10/20 Anita Gillespie MD Medical Oncologist/Tennis Ball Cover Cementer Medical Oncology 10/07/20 Tabitha Hurley MD [address] [facility] 14 [place] [address] Consulting Physician Rheumatology 10/22/21 documented as of this encounter
--- OUTSIDE RECORDS SUMMARY | 2024-10-28 06:12 | XMS_ITS | Encounter Summary ---
Author Organization [facility] Address [address] [place] [address] Care Team Providers Care Drafting Layout Man Name Role Phone Guero Colunga Primary Care Provider [phone] Amber Montesinos RN Unavailable [phone] Jil Duncan MD Unavailable [phone] Anita Gillespie MD Unavailable [phone] Tabitha Hurley MD Unavailable [phone] Encounter Details Date Type Department Care Team (Late st Contact Info) Description 03/31/2022 Telephone [facility] Transplant Liver [address] [address] [id number] [place] [address] Amber Montesinos RN Social History [...] on file 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 [phone] * Telephone Encounter - Eli Brink - 03/31/2022 3:25 PM CDT Confirmed standing order is correct in [facility]. I will send order to [facility] for tomorrow. * Telephone Encounter - Amber Vargas, SHAILESH - 03/31/2022 3:14 PM CDT Mom reporting patient has had issues getting labs done at [facility]. He tried to go this past Wednesday but they told him that the tacrolimus and CMV test did not have test codes anymore so they were unable to draw his order. She states the person told him that they tried to call our office but we we were closed. His SO was just updated in [employer] in December. She states he will try to get labs done at [facility] in [place], [place]. Victorina- can you see what his order says in [employer]? I am not sure what issue they were having. We had him doing weekly CBC, CMP, GGT, taco, direct bili, and CMV PCR qn documented in this encounter Plan of Treatment Scheduled Procedures Name Priority Associated Diagnoses Date/Ti me COLONOSCOPY Encounter for screening for colorectal cancer in high risk patient Family history of rectal cancer documented as of this encounter Visit Diagnoses Not on filedocumented in this encounter Care Teams Drafting Layout Man Relationship Specialty Start Date End Date Guero Colunga DO PCP - General Internal Medicine 03/22/19 04/18/23 Amber Montesinos, RN Certified Surgical Assistant Transplant 11/17/19 Jil Duncan MD Consulting Physician Infectious Diseases 01/10/20 Anita Gillespie MD Medical Oncologist/Fuel Storage Technician Medical Oncology 10/07/20 Tabitha Hurley MD [address] [facility] 14 [place] [address] Consulting Physician Rheumatology 10/22/21 documented as of this encounter
--- OUTSIDE RECORDS SUMMARY | 2024-10-28 06:12 | XMS_ITS | Encounter Summary ---
Author Organization [facility] Healthcare Address [address] [place] [address] Care Team Providers Care Fitness Centre Manager Name Role Phone Guero Colunga Primary Care Provider [phone] Amber Montesinos RN Unavailable [phone] Jil Duncan MD Unavailable [phone] Anita Gillespie MD Unavailable [phone] Tabitha Hurley MD Unavailable [phone] Encounter Details Date Type Department Care Team (Late st Contact Info) Description 04/16/2022 Telephone [facility] Transplant Liver [address] [address] [address] [phone] [place] [address] Amber Montesinos RN Social History [...] on file 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 Patient reporting labs are a true tacrolimus trough.Still taking only 0.5mg of tacrolimus daily. Denies any recent headaches or tremors. Reports feeling well at home. Let him know I would discuss his labs with our physician and call him back if there are any changes recommended. documented in this encounter Plan of Treatment Scheduled Procedures Name Priority Associated Diagnoses Date/Ti me COLONOSCOPY Encounter for screening for colorectal cancer in high risk patient Family history of rectal cancer documented as of this encounter Visit Diagnoses Not on filedocumented in this encounter Care Teams Fitness Centre Manager Relationship Specialty Start Date End Date Guero Colunga DO PCP - General Internal Medicine 03/22/19 04/18/23 Amber Montesinos, SHAILESH Furniture Sales Consultant Transplant 11/17/19 Jil Duncan MD Consulting Physician Infectious Diseases 01/10/20 Anita Gillespie MD Medical Oncologist/Hand Roller Medical Oncology 10/07/20 Tabitha Hurley MD [address] [facility] 14 [place] [address] Consulting Physician Rheumatology 10/22/21 documented as of this encounter
--- OUTSIDE RECORDS SUMMARY | 2024-10-28 06:12 | XMS_ITS | Encounter Summary ---
Author Organization [facility] Healthcare Address [address] [place] [address] Care Team Providers Care Human Services Assistant Name Role Phone Guero Colunga Primary Care Provider [phone] Amber Montesinos RN Unavailable [phone] Jil Duncan MD Unavailable [phone] Anita Gillespie MD Unavailable [phone] Tabitha Hurley MD Unavailable [phone] Encounter Details Date Type Department Care Team (Late st Contact Info) Description 07/08/[address] 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 Victorina, [facility] when you have time? They should be sending us the result. Thanks documented in this encounter Plan of Treatment Scheduled Procedures Name Priority Associated Diagnoses Date/Ti me COLONOSCOPY Encounter for screening for colorectal cancer in high risk patient Family history of rectal cancer documented as of this encounter Visit Diagnoses Not on filedocumented in this encounter Care Teams Human Services Assistant Relationship Specialty Start Date End Date Guero Colunga DO PCP - General Internal Medicine 03/22/19 04/18/23 Amber Montesinos, SHAILESH Board Filler Transplant 11/17/19 Jil Duncan MD Consulting Physician Infectious Diseases 01/10/20 Anita Gillespie MD Medical Oncologist/[facility] [employer] [facility] Medical Oncology 10/07/20 Tabitha Hurley MD [address] [facility] 14 [place] [address] Consulting Physician Rheumatology 10/22/21 documented as of this encounter
--- OUTSIDE RECORDS SUMMARY | 2024-10-28 06:12 | XMS_ITS | Encounter Summary ---
Author Organization [facility] Healthcare Address [address] [place] [address] Care Team Providers Care Stockfeed Miller Name Role Phone Guero Colunga Primary Care Provider [phone] Amber Montesinos RN Unavailable [phone] Jil Duncan MD Unavailable [phone] Anita Gillespie MD Unavailable [phone] Tabitha Hurley MD Unavailable [phone] Encounter Details Date Type Department Care Team (Late st Contact Info) Description 05/16/2022 Orders Only [facility] Health Information Management [address] [place] [address] Scanning, Provider Social History Tobacco Use Types [...] on file 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 Gender Identity Not on file Sexual Orientation Straight 08/22/2021 9: 23 AM CDT documented as of this encounter Plan of Treatment Scheduled Procedures Name Priority Associated Diagnoses Date/Ti me COLONOSCOPY Encounter for screening for colorectal cancer in high risk patient Family history of rectal cancer documented as of this encounter Procedures Procedure Name Priority Date/Time Associated Diagnosis Comments SCAN - LABS 05/16/2022 9:31 AM CDT documented in this encounter Results * SCAN - LABS (05/16/2022 9:31 AM CDT) us Provider Scanning Edited Result - Final documented in this encounter Visit Diagnoses Not on filedocumented in this encounter Care Teams Stockfeed Miller Relationship Specialty Start Date End Date Guero Colunga DO PCP - General Internal Medicine 03/22/19 04/18/23 Amber Montesinos RN Architectural Examiner Transplant 11/17/19 Jil Duncan MD Consulting Physician Infectious Diseases 01/10/20 Anita Gillespie MD Medical Oncologist/Concaver Medical Oncology 10/07/20 Tabitha Hurley MD [address] [facility] 14 [place] [address] Consulting Physician Rheumatology 10/22/21 documented as of this encounter
--- OUTSIDE RECORDS SUMMARY | 2024-10-28 06:12 | XMS_ITS | Encounter Summary ---
Author Organization [facility] Healthcare Address [address] [place] [address] Care Team Providers Care Child Life Assistant Name Role Phone Guero Colunga Primary Care Provider [phone] Amber Montesinos RN Unavailable [phone] Jil Duncan MD Unavailable [phone] Anita Gillespie MD Unavailable [phone] Tabitha Hurley MD Unavailable [phone] Encounter Details Date Type Department Care Team (Late st Contact Info) Description 05/22/2022 Telephone 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 Patient does report true tacrolimus trough. Let him know that I reviewed his most recent labs with Dr. rGesham. He is going to discuss patient's treatment plan for CMV with ID. He may need a dose adjustment of tacrolimus. Patient denies any headaches or tremors. States that maribavir makes him have horrible taste for most food and beverages. Let himknow that I would discuss his dose with Dr. Gresham and call him back if any changes. He confirmshe is only taking 0.5mg of tacro daily. documented in this encounter Plan of Treatment Scheduled Procedures Name Priority Associated Diagnoses Date/Ti me COLONOSCOPY Encounter for screening for colorectal cancer in high risk patient Family history of rectal cancer documented as of this encounter Visit Diagnoses Not on filedocumented in this encounter Care Teams Child Life Assistant Relationship Specialty Start Date End Date Guero Colunga DO PCP - General Internal Medicine 03/22/19 04/18/23 Amber Montesinos RN Jail Officer Transplant 11/17/19 Jil Duncan MD Consulting Physician Infectious Diseases 01/10/20 Anita Gillespie MD Medical Oncologist/Position Classification Manager Medical Oncology 10/07/20 Tabitha Hurley MD [address] [facility] [address] [facility] 14 [place] [address] Consulting Physician Rheumatology 10/22/21 documented as of this encounter
--- OUTSIDE RECORDS SUMMARY | 2024-10-28 06:12 | XMS_ITS | Encounter Summary ---
Author Organization [facility] Healthcare Address [address] [place] [address] Care Team Providers Care Apprenticeship Representative Name Role Phone Guero Colunga Primary Care Provider [phone] Amber Montesinos RN Unavailable [phone] Jil Duncan MD Unavailable [phone] Anita Gillespie MD Unavailable [phone] Tabitha Hurley MD Unavailable [phone] Encounter Details Date Type Department Care Team (Late st Contact Info) Description 05/05/2022 Telephone [facility] Transplant Liver [address] [address] Mail[address] 02-00-913 [place] [address] Ileana Gan RN Social History Tobacco Use Types Packs/Day [...] on file 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 Gresham: No focal hepatic lesions or signs or biliary dilation Recommend continued monitoring of liver tests. Placed call to patient to discuss, and pt verbalized understanding. Pt reports that he will go for blood work this Wednesday. documented in this encounter Plan of Treatment Scheduled Procedures Name Priority Associated Diagnoses Date/Ti me COLONOSCOPY Encounter for screening for colorectal cancer in high risk patient Family history of rectal cancer documented as of this encounter Visit Diagnoses Not on filedocumented in this encounter Care Teams Apprenticeship Representative Relationship Specialty Start Date End Date Guero Colunga DO PCP - General Internal Medicine 03/22/19 04/18/23 Amber Montesinos, SHAILESH Financial Engineer Transplant 11/17/19 Jil Duncan MD Consulting Physician Infectious Diseases 01/10/20 Anita Gillespie MD Medical Oncologist/[employer] Medical Oncology 10/07/20 Tabitha Hurley MD [address] [facility] 14 [place] [address] Consulting Physician Rheumatology 10/22/21 documented as of this encounter
--- OUTSIDE RECORDS SUMMARY | 2024-10-28 06:12 | XMS_ITS | Encounter Summary ---
Author Organization [facility] Healthcare Address [address] [place] [address] Care Team Providers Care Pallet Sorter Name Role Phone Guero Colunga Primary Care Provider [phone] Amber Montesinos RN Unavailable [phone] Jil Duncan MD Unavailable [phone] Anita Gillespie MD Unavailable [phone] Tabitha Hurley MD Unavailable [phone] Reason for Referral * MRI/CAT/PET Scan (Routine) - Closed Specialty Diagnoses / Procedures Referred By Contac t Referred To Contact Radiology Diagnoses History of liver transplant (CMS/HCC) (HCC) 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HCC) LFT elevation Elevated bilirubin Procedures MRI Abdomen MRCP W WO Contrast Theodore Gresham MD 1 [facility] [address] [place] [address] Phone: tel: fax: [address] [address] Referral ID Status Reason Start Date Expiration Date Visits Re quested Visits Authorized [id number] Closed 04/17/2022 05/17/2023 1 1 Reason for Visit * Reason Onset Date Comments MRCP 04/17/2022 Encounter Details Date Type Department Care Team (Late st Contact Info) Description 04/17/2022 Telephone [facility] and [facility] Transplant Liver [address] [facility] [address] Mailstop [phone] [place] [address] Josee Swain RN [facility] Social History Tobacco Use Types Packs/Day Years [...] on file 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 Per KMK, would get MRI/MRCP Victorina, please precert for 05/02/22 - thanks! Are there any changes to insurance? If there is a change, please indicate the new insurance details below. If it is unchanged to what is already in [facility], simply warren each with N/A Primary Insurance: Patient ID#: Group#: Insurance Phone#: Radiology Test Request Details Need pre-cert for: MRI Abdomen MRCP W WO Contrast Ordering physician: Theodore Gresham MD ) CPT Code: 76830,[id number] CPT Code description: MRI Abdomen MRCP W WO Contrast ICD-10 Code: Z94.4, B25.9, R79.89, R17 ICD-10 Code description: History of liver transplant, Cytomegalovirus (CMV) viremia, LFT elevation,Elevated bilirubin Patient is having test due to: History of liver transplant, Cytomegalovirus (CMV) viremia, LFT elevation, Elevated bilirubin Complications patient is having: LFT elevation, Elevated bilirubin Testing is to rule out the following: inflammation, obstruction bile duct When Scheduling, Obtain the following - What facility will test be done at: [facility] Facility's NPI: Facility's Tax ID: Facility's Address: Date(s) of test: 05/02/22 documented in this encounter Plan of Treatment Scheduled Procedures Name Priority Associated Diagnoses Date/Ti ct COLONOSCOPY Encounter for screening for colorectal cancer in high risk patient Family history of rectal cancer documented as of this encounter Results * MRI Abdomen MRCP [...] HISTORY: 27-year-old male with 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 Elevated bilirubin. [...] by: Saul Heath M.D. Theodore Gresham MD IMG MRI PROCEDURES Final R esult documented in this encounter Visit Diagnoses Diagnosis History of liver transplant (CMS/HCC) (HCC)- Primary 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 LFT elevation Elevated bilirubin History of liver transplant (CMS/HCC) (HCC) 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 LFT elevation Elevated bilirubin documented in this encounter Care Teams Pallet Sorter Relationship Specialty Start Date End Date Cristine GueroDO PCP - General Internal Medicine 03/22/19 04/18/23 Amber Montesinos, SHAILESH Deputy Sheriff/Investigator Transplant 11/17/19 Jil Duncan MD Consulting Physician Infectious Diseases 01/10/20 Anita Gillespie MD Medical Oncologist/Reactor Technician Medical Oncology 10/07/20 Tabitha Hurley MD [address] [facility] 14 [place] [address] Consulting Physician Rheumatology 10/22/21 documented as of this encounter
--- OUTSIDE RECORDS SUMMARY | 2024-10-28 06:12 | XMS_ITS | Encounter Summary ---
Author Organization [facility] Healthcare Address [address] [place] [address] Care Team Providers Care Bridge Rigger Name Role Phone Guero Colunga Primary Care Provider [phone] Amber Montesinos RN Unavailable [phone] Jil Duncan MD Unavailable [phone] Anita Gillespie MD Unavailable [phone] Tabitha Hurley MD Unavailable Reason for Visit * Auth/Cert Specialty Diagnoses / Procedures Referred By Contac t Referred To Contact Diagnoses PTLD (post-transplant lymphoproliferative disorder) (HCC) Procedures N/A Referral ID Status Reason Start Date Expiration Date Visits Re quested Visits Authorized [id number] 1 1 Encounter Details Date Type Department Care Team (Latest Contact Info) Description 07/09/2022 2:21 PM CDT - 07/09/2022 8:06 PM CDT Hospital Encounter [facility] [address] [place] [address] Discharge Disposition: Discharge to home or [...] on file 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 Gender Identity Not on file Sexual [...] Associated Diagnosis Comments CT CHEST W CONTRAST ED Urgent/IP Urgent 07/09/2022 2:[address] SINUS WO CONTRAST ED Urgent/IP Urgent 07/09/2022 2:43 PM CDT documented in this encounter Visit Diagnoses Not on filedocumented in this encounter Administered Medications Inactive Administered Medications - up to 3 most recent administrations Medication Order MAR Action Action Date Dose Rate Site ioversoL (OPTIRAY 350) syringe 100 mL 100 mL, intravenous, Once in imaging, contrast, Starting on Brenda 07/09/22 at 1442, For 1 dose Contrast Given 07/09/2022 2:37 PM CDT 75 mL documented in this encounter Additional Health Concerns Infection Onset Date Last Indicated Resolved Time COVID: Suspected 07/09/2022 07/09/2022 07/09/2022 2:27 PM CDT Adenovirus, contact + droplet 07/09/2022 07/09/2022 07/16/2022 3:05 AM CDT Rhino/Enterovirus 07/09/2022 07/09/2022 07/16/2022 3:05 AM CDT documented as of this encounter Care Teams Bridge Rigger Relationship Specialty Start Date End Date Guero Colunga DO PCP - General Internal Medicine 03/22/19 04/18/23 Amber Montesinos, SHAILESH Retort Firer Transplant 11/17/19 Jil Duncan MD Consulting Physician Infectious Diseases 01/10/20 Anita Gillespie MD Medical Oncologist/Account Executive Agribusiness Medical Oncology 10/07/20 Tabitha Hurley MD [address] [facility] 14 [place] [address] Consulting Physician Rheumatology 10/22/21 documented as of this encounter
--- OUTSIDE RECORDS SUMMARY | 2024-10-28 06:12 | XMS_ITS | Encounter Summary ---
Author Organization [facility] Healthcare Address [address] [place] [address] Care Team Providers Care Traveling Repair Accountant Name Role Phone Guero Colunga Primary Care Provider [phone] Amber Montesinos RN Unavailable [phone] Jil Duncan MD Unavailable [phone] Anita Gillespie MD Unavailable [phone] Tabitha Hurley MD Unavailable [phone] Encounter Details Date Type Department Care Team (Late st Contact Info) Description 04/07/2022 Orders Only [facility] Health Information Management [address] [place] [address] Scanning, Provider Social History Tobacco Use Types [...] on file Legal 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 Gender Identity Not on file Sexual Orientation Straight 08/22/2021 9: 23 AM CDT documented as of this encounter Plan of Treatment Scheduled Procedures Name Priority Associated Diagnoses Date/Ti me COLONOSCOPY Encounter for screening for colorectal cancer in high risk patient Family history of rectal cancer documented as of this encounter Procedures Procedure Name Priority Date/Time Associated Diagnosis Comments SCAN - LABS 04/07/2022 3:37 PM CDT documented in this encounter Results * SCAN - LABS (04/07/2022 3:37 PM CDT) us Provider Scanning Final Result documented in this encounter Visit Diagnoses Not on filedocumented in this encounter Care Teams Traveling Repair Accountant Relationship Specialty Start Date End Date Guero Colunga DO PCP - General Internal Medicine 03/22/19 04/18/23 Amber Montesinos, SHAILESH Victim Witness Administrator Transplant 11/17/19 Jil Duncan MD Consulting Physician Infectious Diseases 01/10/20 Anita Gillespie MD Medical Oncologist/Silk Screen Printer Machine Medical Oncology 10/07/20 Tabitha Hurley MD [address] [facility] 14 [place] [address] Consulting Physician Rheumatology 10/22/21 documented as of this encounter
--- OUTSIDE RECORDS SUMMARY | 2024-10-28 06:12 | XMS_ITS | Encounter Summary ---
Author Organization [facility] Healthcare Address [address] [place] [address] Care Team Providers Care Job Training Specialist Name Role Phone Guero Colunga Primary Care Provider [phone] Amber Montesinos RN Unavailable [phone] Jil Duncan MD Unavailable [phone] Anita Gillespie MD Unavailable [phone] Tabitha Hurley MD Unavailable [phone] Encounter Details Date Type Department Care Team (Late st Contact Info) Description 05/01/2022 Orders Only [facility] Health Information Management [address] [place] [address] Scanning, Provider Social History Tobacco Use Types [...] on file 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 Gender Identity Not on file Sexual Orientation Straight 08/22/2021 9: 23 AM CDT documented as of this encounter Plan of Treatment Scheduled Procedures Name Priority Associated Diagnoses Date/Ti me COLONOSCOPY Encounter for screening for colorectal cancer in high risk patient Family history of rectal cancer documented as of this encounter Procedures Procedure Name Priority Date/Time Associated Diagnosis Comments SCAN - LABS 05/01/2022 9:21 AM CDT documented in this encounter Results * SCAN - LABS (05/01/2022 9:21 AM CDT) us Provider Scanning Final Result documented in this encounter Visit Diagnoses Not on filedocumented in this encounter Care Teams Job Training Specialist Relationship Specialty Start Date End Date Guero Colunga DO PCP - General Internal Medicine 03/22/19 04/18/23 Amber Montesinos RN Quality Assurance Advisor Transplant 11/17/19 Jil Duncan MD Consulting Physician Infectious Diseases 01/10/20 Anita Gillespie MD Medical Oncologist/Boot Repairer Medical Oncology 10/07/20 Tabitha Hurley MD [address] [facility] 14 [place] [address] Consulting Physician Rheumatology 10/22/21 documented as of this encounter
--- OUTSIDE RECORDS SUMMARY | 2024-10-28 06:12 | XMS_ITS | Encounter Summary ---
Author Organization [facility] Healthcare Address [address] [place] [address] Care Team Providers Care Geosciences Associate Professor Name Role Phone Guero Colunga Primary Care Provider [phone] Amber Montesinos RN Unavailable [phone] Jil Duncan MD Unavailable [phone] Anita Gillespie MD Unavailable [phone] Tabitha Hurley MD Unavailable [phone] Encounter Details Date Type Department Care Team (Late st Contact Info) Description 05/12/2022 Orders Only [facility] Health Information Management 1 [place] [address] Scanning, Provider Social History Tobacco Use Types [...] on file 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 Gender Identity Not on file Sexual Orientation Straight 08/22/2021 9: 23 AM CDT documented as of this encounter Plan of Treatment Scheduled Procedures Name Priority Associated Diagnoses Date/Ti me COLONOSCOPY Encounter for screening for colorectal cancer in high risk patient Family history of rectal cancer documented as of this encounter Procedures Procedure Name Priority Date/Time Associated Diagnosis Comments SCAN - LABS 05/12/2022 5:11 PM CDT documented in this encounter Results * SCAN - LABS (05/12/2022 5:11 PM CDT) us Provider Scanning Final Result documented in this encounter Visit Diagnoses Not on filedocumented in this encounter Care Teams Geosciences Associate Professor Relationship Specialty Start Date End Date Guero Colunga DO PCP - General Internal Medicine 03/22/19 04/18/23 Amber Montesinos RN Marketing Production Coordinator Transplant 11/17/19 Jil Duncan MD Consulting Physician Infectious Diseases 01/10/20 Anita Gillespie MD Medical Oncologist/Market President Medical Oncology 10/07/20 Tabitha Hurley MD [address] [facility] 14 [place] [address] Consulting Physician Rheumatology 10/22/21 documented as of this encounter
--- OUTSIDE RECORDS SUMMARY | 2024-10-28 06:12 | XMS_ITS | Encounter Summary ---
Author Organization [facility] Healthcare Address [address] [place] [address] Care Team Providers Care Mountain Guide Name Role Phone Guero Colunga Primary Care Provider [phone] Amber Montesinos RN Unavailable [phone] Jil Duncan MD Unavailable [phone] Anita Gillespie MD Unavailable [phone] Tabitha Hurley MD Unavailable [phone] Encounter Details Date Type Department Care Team (Late st Contact Info) Description 04/04/2022 Orders Only [facility] Health Information Management [address] [place] [address] Scanning, Provider Social History Tobacco Use Types [...] on file 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 Gender Identity Not on file Sexual Orientation Straight 08/22/2021 9: 23 AM CDT documented as of this encounter Plan of Treatment Scheduled Procedures Name Priority Associated Diagnoses Date/Ti me COLONOSCOPY Encounter for screening for colorectal cancer in high risk patient Family history of rectal cancer documented as of this encounter Procedures Procedure Name Priority Date/Time Associated Diagnosis Comments SCAN - LABS 04/04/2022 12:52 PM CDT documented in this encounter Results * SCAN - LABS (04/04/2022 12:52 PM CDT) us Provider Scanning Edited Result - Final documented in this encounter Visit Diagnoses Not on filedocumented in this encounter Care Teams Mountain Guide Relationship Specialty Start Date End Date Guero Colunga DO PCP - General Internal Medicine 03/22/19 04/18/23 Amber Montesinos RN Blind Hanger Transplant 11/17/19 Jil Duncan MD Consulting Physician Infectious Diseases 01/10/20 Anita Gillespie MD Medical Oncologist/Scroll Assembler Medical Oncology 10/07/20 Tabitha Hurley MD [address] [facility] 14 [place] [address] Consulting Physician Rheumatology 10/22/21 documented as of this encounter
--- OUTSIDE RECORDS SUMMARY | 2024-10-28 06:12 | XMS_ITS | Encounter Summary ---
Author Organization [facility] Address [address] [place] [address] Phone Care Team Providers Care Operational Assistant Name Role Phone Guero Colunga DO Primary Care Provider Amber Montesinos RN Unavailable [phone] Jil Duncan MD Unavailable [phone] Anita Gillespie MD Unavailable [phone] Tabitha Hurley MD Unavailable [phone] Reason for Visit * Reason Onset Date Comments Maribavir approved through 202103/11/2022 Encounter Details Date Type Department Care Team (Late st Contact Info) Description 03/11/2022 Telephone [facility] Infectious Diseases [address] [place] [phone] Ny Griffin Maribavir approved through 2021 Social History Tobacco Use Types Packs/Day Years [...] on file 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 They left a message for patient's mother and once they hear back from her they will arrange next day delivery of the medication. documented in this encounter Plan of Treatment Scheduled Procedures Name Priority Associated Diagnoses Date/Ti me COLONOSCOPY Encounter for screening for colorectal cancer in high risk patient Family history of rectal cancer documented as of this encounter Visit Diagnoses Not on filedocumented in this encounter Care Teams Operational Assistant Relationship Specialty Start Date End Date Guero Colunga DO PCP - General Internal Medicine 03/22/19 04/18/23 Amber Montesinos RN Energy Conservation Technician Transplant 11/17/19 Jil Duncan MD Consulting Physician Infectious Diseases 01/10/20 Anita Gillespie MD Medical Oncologist/Motor Assembly Supervisor Medical Oncology 10/07/20 Tabitha Hurley MD [address] [facility] 14 [place] [address] Consulting Physician Rheumatology 10/22/21 documented as of this encounter
--- OUTSIDE RECORDS SUMMARY | 2024-10-28 06:12 | XMS_ITS | Encounter Summary ---
Author Organization [facility] Address [address] [place] [address] Phone Care Team Providers Care Vacuum Technician Name Role Phone Guero Colunga DO Primary Care Provider [phone] Amber Montesinos RN Unavailable [phone] Jil Duncan MD Unavailable [phone] Anita Gillespie MD Unavailable [phone] Tabitha Hurley MD Unavailable [phone] Reason for Visit * Reason Onset Date Comments patient assistance 03/11/2022 Encounter Details Date Type Department Care Team (Late st Contact Info) Description 03/11/2022 Telephone [facility] Infectious Diseases [address] [place] [phone] Ny Griffin patient assistance Social History Tobacco Use Types Packs/Day Years [...] on file 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 Nichols' joycelyn . . . I spoke to Kita at [facility] this morning who spoke to the patient's mother Brooklynn yesterday. Brooklynn had the patient complete the [employer] authorization, which was done and received by the program. She said the patient will be screened today. If approved, it will be thru 2021 and [facility] will contact the patient to set up delivery, which is usually next day. Our office will be notified of [employer]'s decision via fax, but I requested a phone call too - to Ny or Ashley. Thanks, Ksenia ----- Message ----- From: Ny Griffin Sent: 03/10/2022 9:59 AM CDT To: Flor Rae RPh Got it, cynthia Mccormack ----- Message ----- From: Flor Rae RPh Sent: 03/10/2022 9:41 AM CDT To: Ny Alejandra, I think [employer] may be requesting things that we have already sent. I called [employer] this morning, spoke to rep East, who confirmed that online johana received from our office was complete, denial from [facility] was received, and 2 scripts were received. She said that [employer] spoke to the patient by phone yesterday who declined to provide necessary information to complete patient portion of the application. I requested that [employer] reach out to mom Brooklynn, whose contact info was provided on the form andshe agreed to do so. If we do not hear anything further today, I will call Jerome again tomorrow morning to check in. I will put all of the paperwork in my mailbox. Thanks, Ali documented in this encounter Plan of Treatment Scheduled Procedures Name Priority Associated Diagnoses Date/Ti me COLONOSCOPY Encounter for screening for colorectal cancer in high risk patient Family history of rectal cancer documented as of this encounter Visit Diagnoses Not on filedocumented in this encounter Care Teams Vacuum Technician Relationship Specialty Start Date End Date Guero Colunga DO PCP - General Internal Medicine 03/22/19 04/18/23 Amber Montesinos, SHAILESH Resource Management Specialist Transplant 11/17/19 Jil Duncan MD Consulting Physician Infectious Diseases 01/10/20 Anita Gillespie MD Medical Oncologist/Master Baker Medical Oncology 10/07/20 Tabitha Hurley MD [address] [facility] 14 [place] [address] Consulting Physician Rheumatology 10/22/21 documented as of this encounter
--- OUTSIDE RECORDS SUMMARY | 2024-10-28 06:12 | XMS_ITS | Encounter Summary ---
Author Organization [facility] Address [address] [place] [address] Phone Care Team Providers Care Manager Audit Name Role Phone Guero Colunga DO Primary Care Provider [phone] Amber Montesinos RN Unavailable [phone] Jil Duncan MD Unavailable [phone] Anita Gillespie MD Unavailable [phone] Tabitha Hurley MD Unavailable [phone] Encounter Details Date Type Department Care Team (Late st Contact Info) Description 07/09/2022 Orders Only [facility] Oncology [address] [facility] Advanced Medicine 7th [place] [address] [place] [address] Samreen Greene RN Social History [...] on file 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
--- OUTSIDE RECORDS SUMMARY | 2024-10-28 06:12 | XMS_ITS | Encounter Summary ---
Author Organization [facility] Address [address] [place] [address] Phone Care Team Providers Care Meat And Seafood Manager Name Role Phone Guero Colunga DO Primary Care Provider [phone] Amber Montesinos RN Unavailable [phone] Jil Duncan MD Unavailable [phone] Anita Gillespie MD Unavailable [phone] Tabitha Hurley MD Unavailable [phone] Encounter Details Date Type Department Care Team (Late st Contact Info) Description 06/24/2022 Orders Only [facility] Infectious Diseases [address] [place] [address] [address] [place] [address] Lisandra Auguste, UNDERWRITING CLERK [address] [place] [address] 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HCC) (Primary Dx) [...] on file 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 Gender Identity Not on file Sexual Orientation Straight 08/22/2021 9: 23 AM CDT documented as of this encounter Plan of Treatment Scheduled Orders Name Type Priority Associated Diagnoses Order Schedule Cytomegalovirus (CMV) DNA PCR, quantitative Blood Microbiology Routine 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HCC) every 2 weeks for 20 Occurrences starting 06/24/2022 until 06/24/2023 Scheduled Procedures Name Priority Associated Diagnoses Date/Ti me COLONOSCOPY Encounter for screening for colorectal cancer in high risk patient Family history of rectal cancer documented as of this encounter Visit Diagnoses Diagnosis 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
--- OUTSIDE RECORDS SUMMARY | 2024-10-28 06:12 | XMS_ITS | Encounter Summary ---
Author Organization [facility] Healthcare Address [address] [place] [address] Care Team Providers Care Blanket Cutting Machine Operator Name Role Phone Guero Colunga Primary Care Provider [phone] Amber Montesinos RN Unavailable [phone] Jil Duncan MD Unavailable [phone] Anita Gillespie MD Unavailable [phone] Tabitha Hurley MD Unavailable [phone] Encounter Details Date Type Department Care Team (Late st Contact Info) Description 04/17/2022 Documentation [facility] Transplant Liver [id number] [place] [address] Josee Swain RN Social History [...] on file 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 Set up for 05/02/22 at 8:15 AM [facility] 7:45 arrival, NPO 4 hours prior. documented in this encounter Plan of Treatment Scheduled Procedures Name Priority Associated Diagnoses Date/Ti me COLONOSCOPY Encounter for screening for colorectal cancer in high risk patient Family history of rectal cancer documented as of this encounter Visit Diagnoses Not on filedocumented in this encounter Care Teams Blanket Cutting Machine Operator Relationship Specialty Start Date End Date Guero Colunga DO PCP - General Internal Medicine 03/22/19 04/18/23 Amber Montesinos, SHAILESH Plumbing Installer Transplant 11/17/19 Jil Duncan MD Consulting Physician Infectious Diseases 01/10/20 Anita Gillespie MD Medical Oncologist/Ophthalmic Aide Medical Oncology 10/07/20 Tabitha Hurley MD [address] [place] [address] Consulting Physician Rheumatology 10/22/21 documented as of this encounter
--- OUTSIDE RECORDS SUMMARY | 2024-10-28 06:12 | XMS_ITS | Encounter Summary ---
Author Organization [facility] Address [address] [place] [address] Phone Care Team Providers Care Biochemistry Technician Name Role Phone Guero Colunga DO Primary Care Provider [phone] Amber Montesinos RN Unavailable [phone] Jil Duncan MD Unavailable [phone] Anita Gillespie MD Unavailable [phone] Tabitha Hurley MD Unavailable [phone] Reason for Visit * Reason Comments Injections Scar Encounter Details Date Type Department Care Team (Latest Contact Info) Description 05/13/2022 8:45 AM CDT Clinical Support [facility] Oncology [address] [place] [address] Advanced Medicine 7th [place] [address] Immunocompromised (CMS/HCC) (HCC) (Primary Dx) Social History Tobacco [...] on file 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 Gender Identity Not on file Sexual Orientation Straight 08/22/2021 9: 23 AM CDT documented as of this encounter Last Filed Vital Signs Vital Sign Reading Time Taken Comments Blood Pressure 114/69 05/13/2022 10:33 AM CDT Pulse 65 05/13/2022 10:33 AM CDT Temperature 36.9 ??C (98.4 ??F) 05/13/2022 9:29 AM CD T Respiratory Rate 20 05/13/2022 10:33 AM CDT Oxygen Saturation 100% 05/13/2022 10:33 AM CDT Inhaled Oxygen Concentration - - Weight - - Height - - Body Mass Index - - documented in this encounter Nursing Notes * Lesvia Brown RN - 05/13/2022 8:45 AM CDT Oncology Nursing Note [facility] ONCOL[facility]Y Beka Nichols is a 27 y.o. male who presents for the following injection: Evusheld. Nursing Assessment Nursing Assessment Appetite: Good Diarrhea: No Constipation: No Existing Patients: Any falls since your last visit?: No New Patients: Any falls since your last visit?: N/A Fatigue: Occassional Mouth Sores: No Nausea/Vomiting: No Neurological symptoms: No Pain: No Peripheral Neuropathy: No Pt states has potential to be ?: N/A Shortness of Breath?: No Skin Condition/Temp: Warm, Dry Oral Mucosa Grade: Normal (0) Abdomen: Soft Swelling: No Additional Notes: BP: 106/68 Temp: 36.9 ??C (98.4 ??F) Temp src: Skin Pulse: 65 Resp: 18 SpO2: 98 % Weight: 56.3 kg (124 lb 3.2 oz) Patient: met treatment parameters Beka Nichols tolerated injection well Additional Notes: Pts vitals obtained before, after and 1 hr post injections. Discharge Plan Discharge instructions given to patient. Discharge Mode: Ambulatory Accompanied by: Family Discharged To: Home documented in this encounter Plan of Treatment Scheduled Procedures Name Priority Associated Diagnoses Date/Ti me COLONOSCOPY Encounter for screening for colorectal cancer in high risk patient Family history of rectal cancer documented as of this encounter Visit Diagnoses Diagnosis Immunocompromised (HCC)- Primary Unspecified immunity deficiency documented in this encounter Administered Medications Inactive Administered Medications - up to 3 most recent administrations Medication Order MAR Action Action Date Dose Rate Site cilgavimab intramuscular injection (EUA) 300 mg 300 mg, intramuscular, Once, On Wed05/13/22 at 0900, For 1 dose, Do not shake vials. Withdraw 3 mL of tixagevimab and 3 mL of cilgavimab into TWO separate syringes. Administer the intramuscular injections at different injection sites, preferably one in each of the gluteal muscles, one after the other. Clinically monitor individuals after injections and observe for at least 1 hour.Indications:Immunocompro mised (HCC) Given 05/13/2022 9:32 AM CDT 300 mg Right Dorsogluteal/But tock tixagevimab intramuscular injection (EUA) 300 mg 300 mg, intramuscular, Once, On Wed05/13/22 at 0900, For 1 dose, Do not shake vials. Withdraw 3 mL of tixagevimab and 3 mL of cilgavimab into TWO separate syringes. Administer the intramuscular injections at different injection sites, preferably one in each of the gluteal muscles, one after the other. Clinically monitor individuals after injections and observe for at least 1 hour., I attest the patient meets all EUA requirements, the Fact Sheet has been communicated, and the patient/caregiver has been/will be provided a copy. YesIndications:Immunocompromi sed (HCC) Given 05/13/2022 9:32 AM CDT 300 mg Left Dorsogluteal/But tock documented in this encounter Orders Nursing Count Last Ordered Date First Orde red Date MONITOR PATIENT FOR HYPERSEN SITIVITY REACTIONS 1 05/13/2022 NURSING COMMUNICATION 2 05/13/2022 ONCBCN PROVIDER COMMUNICATION 1 1 2 ONCBCN PROVIDER COMMUNICATION 10 1 05/13/20 ONCBCN PROVIDER COMMUNICATION 19 1 05/13/20 ONCBCN TREATMENT PARAMETERS 17 1 05/13/2022 VITAL SIGNS 2 05/13/2022 Appointment Requests Count Last Ordered Date Fi rst Ordered Date INFUSION APPT REQUEST 90 MIN 1 05/13/2022 documented in this encounter Care Teams Biochemistry Technician Relationship Specialty Start Date End Date Guero Colunga DO PCP - General Internal Medicine 03/22/19 04/18/23 Amber Montesinos, RN Diving Judge Transplant 11/17/19 Jil Duncan MD Consulting Physician Infectious Diseases 01/10/20 Anita Gillespie MD Medical Oncologist/Paddock Judge Medical Oncology 10/07/20 Tabitha Hurley MD [address] [facility] [address] [place] [address] Consulting Physician Rheumatology 10/22/21 documented as of this encounter
--- OUTSIDE RECORDS SUMMARY | 2024-10-28 06:13 | XMS_ITS | Encounter Summary ---
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 Gender Identity Not on file Sexual Orientation [...] CYTOMEGALOVIRUS (CMV) DNA, QUANT GEN LAB Routine 01/17/2022 9:00 AM CDT GLUCOSE, RANDOM (OUTREACH) Routine 01/17/2022 9:00 AM CDT EGFR Routine 01/17/2022 9:00 AM CDT TACROLIMUS LEVEL, TROUGH Routine 01/17/2022 9:00 AM CDT COMPREHENSIVE METABOLIC PANEL WITHOUT GLUCOSE (OUTREACH) Routine 01/17/2022 9:00 AM CDT CBC WITH AUTO DIFFERENTIAL Routine 01/17/2022 9:00 AM CDT MANUAL DIFFERENTIAL Routine 01/17/2022 9 :00 AM CDT GAMMA GT Routine 01/17/2022 9:00 AM CDT documented in this encounter Results * (ABNORMAL) Manual Differential (01/17/2022 9:00 AM CDT) Differential Manual [facility] Neutrophil abs 4.3 1.7 - 6.5 K/cumm [facility] Imm gran abs 0.0 0.0 - 0.1 K/cumm [facility] Lymphocyte abs 3.5(H) 0.8 - 3.3 K/cumm [facility] Monocyte abs 1.2(H) 0.2 - 0.8 K/cumm [facility] Eosinophil abs 0.2 0.0 - 0.5 K/cumm [facility] Basophil abs 0.2(H) 0.0 - 0.1 K/cumm [facility] Neutrophil pct 46.2 % [facility] Comment: Interpretive Data Percent cell count reference ranges are not reported, since discordance with absolute values may lead to misinterpretation of CBC data. Current Interpretive Data was last revised on 2018. Lymphocyte pct 22.6 % [facility] Comment: Interpretive Data Percent cell count reference ranges are not reported, since discordance with absolute values may lead to misinterpretation of CBC data. Current Interpretive Data was last revised on 2018. Monocyte pct 13.0 % [facility] Comment: Interpretive Data Percent cell count reference ranges are not reported, since discordance with absolute values may lead to misinterpretation of CBC data. Current Interpretive Data was last revised on 2018. Eosinophil pct 1.7 % [facility] Comment: Interpretive Data Percent cell count reference ranges are not reported, since discordance with absolute values may lead to misinterpretation of CBC data. Current Interpretive Data was last revised on 2018. Basophil pct 1.7 % [facility] Comment: Interpretive Data Percent cell count reference ranges are not reported, since discordance with absolute values may lead to misinterpretation of CBC data. Current Interpretive Data was last revised on 2018. Variant lymph pct 14.8 % [facility] Blood 01/17/2022 9:00 AM CDT 01/17/2022 11:30 AM CDT us Notinfile Unknown LAB BLOOD ORDERABLES Final Res ult [facility] One [facility] [place] [address] * eGFR (01/17/2022 9:00 AM CDT) eGFR >90 90 - 130 mL/min/1. 73 m2 [facility] Comment: Interpretive Data Reference Interval [...] interpretive data was last reviewed 2021. Blood 01/17/2022 9:00 AM CDT 01/17/2022 11:26 AM CDT us Notinfile Unknown LAB BLOOD ORDERABLES Final Res ult [facility] One [facility] [place] [address] * (ABNORMAL) Cytomegalovirus (CMV) DNA PCR, quantitative Blood (01/17/2022 9:00 AM CDT) [facility] CMV DNA Detected( A) [facility] Comment: Interpretive Data: The quantifiable range of this assay is 34 IUnits/mL to 10,000,000 IUnits/mL (1.53 log IUnits/mL to 7.0 log IUnits/mL). Testing was performed by the NIA 6800 CMV Test ([employer] Testing performed at [facility]. Current interpretive data was last revised on 2021. CMV DNA IU/mL 651 IUnits/mL [facility] CMV DNA log IU/mL 2.81 log IUnits/mL [facility] Blood 01/17/2022 9:00 AM CDT 01/17/2022 11:46 AM CDT us Notinfile Unknown LAB MICROBIOLOGY - GENERAL ORD ERABLES Final Result Performing Organization Address [facility] Co de Phone Number [facility] Department [place] [address] * Tacrolimus level trough (01/17/2022 9:00 AM CDT) Tacrolimus trough 7.2 ng/mL [facility] Comment: Interpretive Data Testing performed by liquid chromatography-tandem mass spectrometry. ??Therapeutic concentrations vary depending on type of transplanted organ and time elapsed since transplant. ??Typical trough concentrations range from 5-15 ng/mL. ??This test was developed and its performance characteristics determined by the [facility] consistent with CLIA requirements. ??This test has not been cleared or approved by the US Food and Drug administration. ??Current interpretive data last reviewed 2020. Blood 01/17/2022 9:00 AM CDT 01/17/2022 11:23 AM CDT us Notinfile Unknown LAB BLOOD ORDERABLES Final Res ult Performing Organization Address [facility] Co de Phone Number [facility] Department [place] [address] * (ABNORMAL) Gamma GT (01/17/2022 9:00 AM CDT) Pathologist [facility] GGT 84(H) 10 - 50 Units/L [facility] Blood 01/17/2022 9:00 AM CDT 01/17/2022 11:22 AM CDT us Notinfile Unknown LAB BLOOD ORDERABLES Final Res ult Performing Organization Address City/[facility] Co de Phone Number [facility] [place] [address] * (ABNORMAL) CBC with auto differential (01/17/2022 9:00 AM CDT) Pathologist [facility] WBC 9.3 3.8 - 9.9 K/cumm [facility] Hgb 12.7(L) 13.0 - 17.5 g/dL [facility] Hct 35.7(L) 38.9 - 50.3 % [facility] Plt 149(L) 150 - 400 K/cumm [facility] MPV 10.9 9.1 - 12.3 fL [facility] RBC 3.54(L) 4.30 - 5.80 M/cumm [facility] MCV 100.8(H) 81.3 - 96.4 fL [facility] MCH 35.9(H) 27.1 - 33.3 pg [facility] MCHC 35.6 32.3 - 35.7 g/dL [facility] RDW CV 18.6(H) 11.1 - 14.9 % [facility] RDW SD 69.5(H) 35.7 - 48.1 fL [facility] NRBC abs 0.00 0.00 - 0.01 K/cumm [facility] Blood 01/17/2022 9:00 AM CDT 01/17/2022 11:23 AM CDT us Notinfile Unknown LAB BLOOD ORDERABLES Final Res ult [facility] One [facility] [place] [address] * Glucose, random (Outreach) (01/17/2022 9:00 AM CDT) [facility] Glucose 93 70 - 199 mg/dL [facility] Comment: Interpretive Data Fasting glucose [...] Current interpretive data was last revised 2017. Blood 01/17/2022 9:0 0 AM CDT 01/17/2022 11:22 AM CDT us Notinfile Unknown LAB BLOOD ORDERABLES Final Res ult Performing Organization Address [facility] Co de Phone Number [facility] One [facility] [place] [place] [address] * (ABNORMAL) Comprehensive metabolic panel, without glucose (Outreach) (01/17/2022 9:00 AM CDT) Sodium 140 135 - 145 mmol/L [facility] Potassium, pl 4.2 3.3 - 4.9 mmol/L [facility] Chloride 108 97 - 110 mmol/L [facility] CO2 24 22 - 32 mmol/L [facility] Anion gap 8 2 - 15 mmol/L [facility] BUN 10 8 - 25 mg/dL [facility] Creatinine 0.68(L) 0.80 - 1.30 mg/dL [facility] Calcium 8.7 8.5 - 10.3 mg/dL [facility] Protein, pl 5.8(L) 6.5 - 8.5 g/dL [facility] Albumin 3.5 3.5 - 5.0 g/dL [facility] Bilirubin, total 1.9(H) 0.1 - 1.2 mg/dL [facility] Alk phos 273(H) 40 - 130 Units/L [facility]] AST 62(H) 10 - 50 Units/L [facility] ALT 54 7 - 55 Units/L [facility] Blood 01/17/2022 9:00 AM CDT 01/17/2022 11:22 AM CDT us Notinfile Unknown LAB BLOOD ORDERABLES Final Res ult Performing Organization Address City/[facility]/ZIP Co de Phone Number [facility] One [facility] [place] [address] documented in this encounter Visit Diagnoses Not on filedocumented in this encounter Care Teams Compensation And Benefits Analyst Relationship Specialty Start Date End Date Guero Colunga DO PCP - General Internal Medicine 03/22/19 04/18/23 Amber Montesinos, SHAILESH Supervisor Mails Transplant 11/17/19 Jil Duncan MD Consulting Physician Infectious Diseases 01/10/20 Anita Gillespie MD Medical Oncologist/Cooker Sulfate Medical Oncology 10/07/20 Tabitha Hurley MD [address] [facility] [address] [place] [address] Consulting Physician Rheumatology 10/22/21 documented as of this encounter
--- OUTSIDE RECORDS SUMMARY | 2024-10-28 06:13 | XMS_ITS | Encounter Summary ---
Author Organization [facility] Address [address] [place] [address] Phone Care Team Providers Care Material Handler 2Nd Shift Name Role Phone Guero Colunga DO Primary Care Provider Amber Montesinos RN Unavailable [phone] Jil Duncan MD Unavailable [phone] Anita Gillespie MD Unavailable [phone] Tabitha Hurley MD Unavailable [phone] Encounter Details Date Type Department Care Team (Late st Contact Info) Description 02/28/2022 Orders Only [facility] Gastroenterology [address] [facility] Advanced Medicine 8th [place] [address] [place] [address] Madelaine Martínez, ELEPHANT TAMER [address] [place] [address] Social History Tobacco Use Types Packs/Day Years [...] on file 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 CMV level 10,158. He needs to go back on valcyte. Has this been addressed yet? * Result Encounter Note - Amber Vargas RN - 03/04/2022 5:26 PM CDT Replied to [employer] message to SHAILESH Alejandra with Dr. Duncan's office that CMV had resulted since she had inquired with coordinator earlier in the week if patient had a result from over the weekend. documented in this encounter Plan of Treatment Scheduled Procedures Name Priority Associated Diagnoses Date/Ti vt COLONOSCOPY Encounter for screening for colorectal cancer in high risk patient Family history of rectal cancer documented as of this encounter Procedures Procedure Name Priority Date/Time Associated Diagnosis Comments COPY(IES) SENT TO: Routine 02/28/2022 12 :00 AM CDT CMV DNA QN, PCR Routine 02/28/2022 12:00 AM CDT TACROLIMUS LEVEL, TROUGH Routine 02/28/2022 12:00 AM CDT CBC WITH AUTO DIFFERENTIAL Routine 02/28/2022 12:00 AM CDT GAMMA GT Routine 02/28/2022 12:00 AM CDT BILIRUBIN, DIRECT Routine 02/28/2022 12: 00 AM CDT COMPREHENSIVE METABOLIC PANEL Routine 02/28/2022 12:00 AM CDT documented in this encounter Results * (ABNORMAL) CMV DNA QN, PCR (02/28/2022 12:00 AM CDT) SOURCE BLOOD [facility], CMV DNA qn 10,158(H) IU/mL [facility], CMV DNA log IU/mL 4.01(H) Log IU/mL [facility], Comment: REFERENCE RANGE: NOT DETECTED This test was developed and its analytical performance characteristics have been determined by [employer]. It has not been cleared or approved by the U.S. Food and Drug Administration. This assay has been validated pursuant to the CLIA regulations and is used for clinical purposes. For additional information, please refer to http://education.[employer]/faq/CMVandEBVPCR (This link is being provided for informational/ educational purposes only.) 02/28/2022 02/28/2022 7:1 6 AM CDT Madelaine Martínez NP LAB MICROBIOLOGY - [facility] AL ORDERABLES Final Result [facility], [address] [place] [address] * Tacrolimus level trough (02/28/2022 12:00 AM CDT) Tacrolimus, highly Sensitive, LC/MS/MS 5.4 mcg/L [facility] Comment: No definitive therapeutic or toxic ranges have been established. Optimal blood drug levels are influenced by type of transplant, patient response, time post- transplant, co-administration of other drugs, and drug formulation. The following trough range is a suggested guideline: 5.0-20.0 mcg/L. This test was developed and its analytical performance characteristics have been determined by [employer]. It has not been cleared or approved by the FDA. This assay has been validated pursuant to the CLIA regulations and is used for clinical purposes. 02/28/2022 02/28/2022 7:1 6 AM CDT Madelaine Martínez ELEPHANT TAMER LAB BLOOD ORDERABLES [facility] al Result [facility] [address] [address] * (ABNORMAL) Comprehensive metabolic panel (02/28/2022 12:00 AM CDT) Pathologist [facility] Glucose 93 65 - 99 mg/dL [facility] [place] [facility] Comment: ? Fasting reference interval BUN 11 7 - 25 mg/dL [facility] Creatinine 0.75 0.60 - 1.35 mg/dL [facility] eGFR NON-AFR. HONG KONGER 124 > OR = 60 mL/min/1. 73m2 [facility] EGFR 144 > OR = 60 mL/min/1. 73m2 [facility] BUN/creat ratio NOT APPLICABLE 6 - 22 (calc) [facility] Sodium 139 135 - 146 mmol/L [facility] Potassium, pl 4.1 3.5 - 5.3 mmol/L [facility] Chloride 107 98 - 110 mmol/L [facility] CO2 26 20 - 32 mmol/L [facility] Calcium 8.6 8.6 - 10.3 mg/dL [facility] Protein, sr 5.3(L) 6.1 - 8.1 g/dL [facility] Albumin 3.7 3.6 - 5.1 g/dL [facility] GLOBULIN 1.6(L) 1.9 - 3.7 g/dL (calc) [facility] Alb/glob ratio 2.3 1.0 - 2.5 (calc) [facility] Bilirubin, total 1.4(H) 0.2 - 1.2 mg/dL [facility] Alk phos 294(H) 36 - 130 U/L [facility] AST 46(H) 10 - 40 U/L [facility] ALT (SGPT) 37 9 - 46 U/L [facility] 02/28/2022 02/28/2022 7:1 6 AM CDT Madelaine Martínez ELEPHANT TAMER LAB BLOOD ORDERABLES Fin al Result Performing Organization Address [facility] Co de Phone Number [facility] [address] [place] [address] * (ABNORMAL) Gamma GT (02/28/2022 12:00 AM CDT) GGT 95(H) 3 - 70 U/L [facility] 02/28/2022 02/28/2022 7:1 6 AM CDT Madelaine Martínez ELEPHANT TAMER LAB BLOOD ORDERABLES Fin al Result Performing Organization Address [facility] de Phone Number [facility] [address] [place] [address] * (ABNORMAL) Bilirubin, direct (02/28/2022 12:00 AM CDT) Bilirubin, direct 0.7(H) < OR = 0.2 mg/dL [facility] 02/28/2022 02/28/2022 7:1 6 AM CDT Madelaine Martínez ELEPHANT TAMER LAB BLOOD ORDERABLES Fin al Result Performing Organization Address [facility] de Phone Number [facility] [address] [place] [address] * (ABNORMAL) CBC with auto differential (02/28/2022 12:00 AM CDT) WBC 10.5 3.8 - 10.8 Thousand/u L [facility] RBC, POC 3.99(L) 4.20 - 5.80 Million/uL [facility] Hgb 14.1 13.2 - 17.1 g/dL [facility] Hct 40.0 38.5 - 50.0 % [facility] MCV 100.3(H) 80.0 - 100.0 fL [facility] MCH 35.3(H) 27.0 - 33.0 pg [facility] MCHC 35.3 32.0 - 36.0 g/dL [facility] Rdw 13.0 11.0 - 15.0 % [facility] Platelets 178 140 - 400 Thousand/u L [facility] MPV 11.5 7.5 - 12.5 fL [facility] Neutrophils, abs 2,877 1,500 - 7,800 cells/uL [facility] Lymphocytes, abs 4,631(H) 850 - 3,900 cells/uL [facility] Monocyte abs 2,604(H) 200 - 950 cells/uL [facility] Eosinophils, abs 294 15 - 500 cells/uL [facility] Basophils, abs 95 0 - 200 cells/uL [facility] Neutrophils 27.4 % [facility] Lymphocyte pct 44.1 % [facility] Monocytes 24.8 % [facility] Eosinophils 2.8 % [facility] Basophils 0.9 % [facility] 02/28/2022 02/28/2022 7:1 6 AM CDT us Madelaine Martínez ELEPHANT TAMER LAB BLOOD ORDERABLES Fin al Result [facility] [address] [address] * COPY(IES) SENT TO: (02/28/2022 12:00 AM CDT) COPY(IES) SENT TO: [facility] Comment: ?BJ LIVER - COPY TO ACCT ?[address] ?[place] [address] 02/28/2022 02/28/2022 7:1 6 AM CDT Madelaine Martínez ELEPHANT TAMER LAB BLOOD ORDERABLES Fin al Result [facility] documented in this encounter Visit Diagnoses Not on filedocumented in this encounter Care Teams Material Handler 2Nd Shift Relationship Specialty Start Date End Date Guero Colunga DO PCP - General Internal Medicine 03/22/19 04/18/23 Amber Montesinos RN Roofing Apprentice Transplant 11/17/19 Jil Duncan MD Consulting Physician Infectious Diseases 01/10/20 Anita Gillespie MD Medical Oncologist/Vice President Planning Medical Oncology 10/07/20 Tabitha Hurley MD [address] [place] [address] Consulting Physician Rheumatology 10/22/21 documented as of this encounter
--- OUTSIDE RECORDS SUMMARY | 2024-10-28 06:13 | XMS_ITS | Encounter Summary ---
Author Organization [facility] Address [address] [place] [address] Phone Care Team Providers Care Accreditation Specialist Name Role Phone Guero Colunga DO Primary Care Provider [phone] Amber Montesinos RN Unavailable [phone] Jil Duncan MD Unavailable [phone] Anita Gillespie MD Unavailable [phone] Tabitha Hurley MD Unavailable [phone] Reason for Visit * Reason Onset Date Comments opat 01/29/2022 Encounter Details Date Type Department Care Team (Late st Contact Info) Description 01/29/2022 Telephone [facility] Infectious Diseases [address] [place] [address] Ny Griffin opat Social History Tobacco [...] on file 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 Gender Identity Not on file Sexual Orientation Straight 08/22/2021 9: 23 AM CDT documented as of this encounter Miscellaneous Notes * Telephone Encounter - Ny Griffin - 01/29/2022 10:00 AM CDT Labs from 01/24/22 CBC: WNL CMP: Alk Phos: 288 (273) AST: 55 (62) CMV PCR: 147 (651) documented in this encounter Plan of Treatment Scheduled Procedures Name Priority Associated Diagnoses Date/Ti me COLONOSCOPY Encounter for screening for colorectal cancer in high risk patient Family history of rectal cancer documented as of this encounter Visit Diagnoses Not on filedocumented in this encounter Care Teams Accreditation Specialist Relationship Specialty Start Date End Date Guero Colunga DO PCP - General Internal Medicine 03/22/19 04/18/23 Amber Montesinos, SHAILESH Soda Room Operator Transplant 11/17/19 Jil Duncan MD Consulting Physician Infectious Diseases 01/10/20 Anita Gillespie MD Medical Oncologist/Molded Goods Spot Picker Medical Oncology 10/07/20 Tabitha Hurley MD [address] [facility] [address] [place] [address] Consulting Physician Rheumatology 10/22/21 documented as of this encounter
--- OUTSIDE RECORDS SUMMARY | 2024-10-28 06:13 | XMS_ITS | Encounter Summary ---
Author Organization [facility] Address [address] [place] [address] Phone Care Team Providers Care Nursing Tech Name Role Phone Guero Colunga Primary Care Provider [phone] Amber Montesinos RN Unavailable [phone] Jil Duncan MD Unavailable [phone] Anita Gillespie MD Unavailable [phone] Tabitha Hurley MD Unavailable [phone] Reason for Visit * Auth/Cert Specialty Diagnoses / Procedures Referred By Contac t Referred To Contact Referral ID Status Reason Start Date Expiration Date Visits Re quested Visits Authorized [id number] 1 1 Encounter Details Date Type Department Care Team (Late st Contact Info) Description 02/07/2022 10:00 AM CDT Home Care Visit [facility] Home Health [address] [address] [address] [place] [address] Juanita Martin RN SN HOME VISIT Social History Tobacco [...] file 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 Gender Identity Not on file Sexual Orientation Straight 08/22/2021 9: 23 AM CDT documented as of this encounter Last Filed Vital Signs Vital Sign Reading Time Taken Comments Blood Pressure 116/64 02/07/2022 8:45 AM CDT Pulse 77 02/07/2022 8:45 AM CDT Temperature 36.9 ??C (98.5 ??F) 02/07/2022 8:45 AM CD T Respiratory Rate 16 02/07/2022 8:45 AM CDT Oxygen Saturation 99% 02/07/2022 8:45 AM CDT Inhaled Oxygen Concentration - - [...] Dose Rate Site 0.9 % sodium chloride ([facility] sodium chloride 0.9%) injection 10 mL, intravenous, As needed, line care, Starting on 02/07/22 at 0848, Indications: line patencyIndications:line patency Given 02/07/2022 8:30 AM CDT 50 mL heparin lock flush, porcine, 10 unit/mL solution 5 mL, intravenous, As needed, line patency, Starting on 02/07/22 at 0849, Indications: Maintain Patency of Indwelling Vascular CatheterIndications:Maintain Patency of Indwelling Vascular Catheter Given 02/07/2022 8:30 AM CDT 10 mL documented in this encounter Home Health Visit - Care Plan Visit Details Visit Type -SN Home Visit Discipline -Prison Problems Problem Description Start Date Status Goals Interventions Medications Disciplines: Prison Management of IV Medications 12/20/2021 Active - 1 problem intervention scheduled/documen mohsen in this visit Need to Collect Specimen Sample Disciplines: Prison Need to collect specimen sample 12/20/2021 Active - 2 problem interventions scheduled/documen mohsen in this visit Safety concerns Disciplines: Prison Safety needs related to infusion administration 12/20/2021 Active - 1 problem intervention scheduled/documen mohsen in this visit Learning/Teachin g Needs - IV Therapy Disciplines: Prison Teaching and learning needs for performing home IV therapy 12/20/2021 Active - 6 problem interventions scheduled/documen mohsen in this visit Monitor patient's vital signs every home health visit Disciplines: SN, PT, OT, WILD LIFE PHOTOGRAPHER, GINNING OPERATOR, Skilled Disciplines Monitor patient's vital signs every home health visit. 12/20/2021 Active 1 goal linked to scheduled/docume nted intervention 1 goal intervention scheduled/documen mohsen in this visit Infection Prevention Disciplines: Skilled Disciplines Infection Prevention 12/20/2021 Active 1 goal linked to scheduled/docume nted intervention 2 goal interventions scheduled/documen mohsen in this visit Safety concerns Disciplines: Skilled Disciplines Alteration in safety 12/20/2021 Active 1 goal linked to scheduled/docume nted intervention 1 goal intervention scheduled/documen mohsen in this visit Goals Goal Associated Problem Outcome Goal Met? Visit Notes Measure vital signs during every home health visit during episode of care Description: Home network operations center technician to measure vital signs during every home [...] interactions, storage, drug allergies, and potential complications. Problem:Medications Scheduled Lab draw Description: Labs Weekly CBC, CMP, CMV PCR Tacrolimus trough and GGT Please fax a copy of all lab results to [facility] at [phone] Fax also to Liver Transplant [phone] Problem:Need to Collect Specimen Sample Completed CBC/diff, CMP, CMV PCR, tacrolimus trough, GGT obtained via PICC per protocol and specimen to laboratory. Draw Labs Description: Add Directr Bilirubin to labs on 01/24/[address] Theodore Gresham/Amber Vargas RN/JSCostantinou RN Problem:Need to Collect Specimen Sample Scheduled Instruct on IV complications Description: Instruct patient/caregiver on how to manage breaks in line, signs/symptoms of complications, who to contact for complications and how to contact the nurse, MD and infusion service Problem:Safety concerns Completed Pt instructed to keep PICC dressing clean, dry, intact, secure, and occlusive, especially as warm weather approproaches, pt to call with any problems or concerns. Patient expressed good understanding. Dressing change Description: Skilled Nurse to instruct patient/caregiver on dressing change frequency. Weekly IV site dressing changes to be performed if no issues. Securement device to be used with appropriate lines. Skilled Nurse to instruct patient/caregiver on the purpose of doing measurements of line migration and arm circumference weekly and PRN. Type of line: PICC Problem:Learning/Teac kofi Needs - IV Therapy Completed Sterile dressing change to PICC site. Site assessed by RN and cleansed with chlorhexidine for 30 seconds and allowed to dry. Sutures clean, dry, intact. Steristrip applied. Sorbaview dressing applied. New claves applied. Connections taped securely. Instruct on IV supplies Description: Instruct patient/caregiver in how to gather supplies, how to restock IV supplies in the home, prepare supplies, administer IV medication and disconnect IV medication, inspecting solution and supplies before infusing, and waste disposal. Problem:Learning/Teac kofi Needs - IV Therapy Scheduled Instruct Infection Prevention Description: Instruct patient/caregiver in strategies to prevent infection. Instruct patient/caregiver on how to recognize signs and symptoms of infection and when to notify HH nurse and/or physician. Problem:Learning/Teac kofi Needs - IV Therapy Scheduled IV Administration Description: Skilled Nurse to instruct patient/caregiver on how to properly administer medication saline and heparin. Skilled Nurse to instruct patient/caregiver to administer IV medication as ordered including saline and heparin flushes. Reason for Therapy: IV Gancyclovir. Problem:Learning/Teac kofi Needs - IV Therapy Scheduled IV Access [...] infusion/flushes. Problem:Learning/Teac kofi Needs - IV Therapy Scheduled Instruct on IV flush Description: Instruct patient/caregiver in how to perform flushing of IV line according to MD orders or protocol. Problem:Learning/Teac kofi Needs - IV Therapy Scheduled Monitor Vital Signs Description: Monitor blood [...] Problem:Infection Prevention Goal:Verbalize signs of infection Scheduled Educate Family on Infection Prevention Description: Instructed family on signs and symptoms of infection IE: fever, odor, change in color, increased amount of drainage, purulent drainage, warmth. Problem:Infection Prevention Goal:Verbalize signs of infection Scheduled Assess safety Description: Assess patient safety Problem:Safety concerns Goal:Demonstrate use of safety precautions Completed Patient is safe at home. documented in this encounter Care Teams Nursing Tech Relationship Specialty Start Date End Date Guero Colunga DO PCP - General Internal Medicine 03/22/19 04/18/23 Amber Montesinos RN Nail Polish Brush Machine Feeder Transplant 11/17/19 Jil Duncan MD Consulting Physician Infectious Diseases 01/10/20 Anita Gillespie MD Medical Oncologist/International Specialist Medical Oncology 10/07/20 Tabitha Hurley MD [address] [facility] [address] [place] [address] Consulting Physician Rheumatology 10/22/21 documented as of this encounter
--- OUTSIDE RECORDS SUMMARY | 2024-10-28 06:13 | XMS_ITS | Encounter Summary ---
Author Organization [facility] Address [address] [place] [address] Phone Care Team Providers Care Environmental Services Assistant Name Role Phone Guero Colunga DO Primary Care Provider [phone] Amber Montesinos RN Unavailable [phone] Jil Duncan MD Unavailable [phone] Anita Gillespie MD Unavailable [phone] Tabitha Hurley MD Unavailable [phone] Encounter Details Date Type Department Care Team (Late st Contact Info) Description 02/18/2022 Telephone [facility] ([facility] - [facility] [address] [facility] [address] [place] [address] [place] [address] Massiel Gastelum MD [address] [place] [address] Social History Tobacco Use Types Packs/Day Years [...] on file 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 Message left requesting a return call. ----- Message from Massiel Gastelum MD sent at 02/17/2022 1:25 PM CDT ----- Pls send budesonide nasal irrigation BID to patient and pls arrange telehealth (phone or video) follow-up in 5-6 weeks. Thanks - AO documented in this encounter Plan of Treatment Scheduled Procedures Name Priority Associated Diagnoses Date/Ti hi COLONOSCOPY Encounter for screening for colorectal cancer in high risk patient Family history of rectal cancer documented as of this encounter Visit Diagnoses Not on filedocumented in this encounter Care Teams Environmental Services Assistant Relationship Specialty Start Date End Date Guero Colunga DO PCP - General Internal Medicine 03/22/19 04/18/23 Amber Montesinos, SHAILESH Microfiche Duplicator Transplant 11/17/19 Jil Duncan MD Consulting Physician Infectious Diseases 01/10/20 Anita Gillespie MD Medical Oncologist/Daily Release And Dupe Printer Medical Oncology 10/07/20 Tabitha Hurley MD [address] [address] Consulting Physician Rheumatology 10/22/21 documented as of this encounter
--- OUTSIDE RECORDS SUMMARY | 2024-10-28 06:13 | XMS_ITS | Encounter Summary ---
Author Organization [facility] Address [address] [place] [address] Phone Care Team Providers Care Lead Athlete Name Role Phone Guero Colunga DO Primary Care Provider [phone] Amber Montesinos RN Unavailable [phone] Jil Duncan MD Unavailable [phone] Anita Gillespie MD Unavailable [phone] Tabitha Hurley MD Unavailable [phone] Encounter Details Date Type Department Care Team (Late st Contact Info) Description 03/09/2022 Documentation [facility] Infectious Diseases [address] [place] [address] Flor Rae, [facility] Social History Tobacco Use Types Packs/Day Years [...] on file 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 Per rep, plan exclusion, plan does not cover this med. Submitted prior authorization request by phone with rep, which was automatically denied. Case [id number]. Requested written documentation of denial be faxed to our office. Contacted [employer] Patient Support for [employer] [phone]. Completed online form/application. Nurse coordinator Ny sent quick start and standard scripts to [email or web address], fax [phone] as requested by program. Patient to be prompted to complete patient portion of application via email and phone. Included patient's mother Brooklynn as caregiver on application. Received writtendenial from insurance,which was faxed to [employer] Program at [phone]. Will follow up with [employer] Support on status of application tomorrow. Dr. Duncan and nurse coordinator Ny aware. documented in this encounter Plan of Treatment Scheduled Procedures Name Priority Associated Diagnoses Date/Ti me COLONOSCOPY Encounter for screening for colorectal cancer in high risk patient Family history of rectal cancer documented as of this encounter Visit Diagnoses Not on filedocumented in this encounter Care Teams Lead Athlete Relationship Specialty Start Date End Date Guero Colunga DO PCP - General Internal Medicine 03/22/19 04/18/23 Amber Montesinos, SHAILESH Engineering Analyst Transplant 11/17/19 Jil Duncan MD Consulting Physician Infectious Diseases 01/10/20 Anita Gillespie MD Medical Oncologist/Maintenance Truck Driver Medical Oncology 10/07/20 Tabitha Hurley MD [address] [facility] 14 [place] [address] Consulting Physician Rheumatology 10/22/21 documented as of this encounter
--- OUTSIDE RECORDS SUMMARY | 2024-10-28 06:13 | XMS_ITS | Encounter Summary ---
Author Organization [facility] Address [address] [place] [address] Phone Care Team Providers Care Instructional Leader Name Role Phone Guero Colunga DO Primary Care Provider [phone] Amber Montesinos RN Unavailable [phone] Jil Duncan MD Unavailable [phone] Anita Gillespie MD Unavailable [phone] Tabitha Hurley MD Unavailable [phone] Reason for Visit * Reason Onset Date Comments opat 02/10/2022 Encounter Details Date Type Department Care Team (Late st Contact Info) Description 02/10/2022 Telephone [facility] Infectious Diseases [address] [place] [address] Ny Griffin opat Social History Tobacco [...] on file 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 * Telephone Encounter - Ny Griffin - 02/10/2022 8:36 AM CDT Please see note from jennifer below. IV can stop and line can be pulled. since viral loads are very low we are going to stop the IV ganciclovir. We also want him to stop the PO letermovir, he should not be on any antivirals anymore. He will need his line removed. Thank you, Ny documented in this encounter Plan of Treatment Scheduled Procedures Name Priority Associated Diagnoses Date/Ti me COLONOSCOPY Encounter for screening for colorectal cancer in high risk patient Family history of rectal cancer documented as of this encounter Visit Diagnoses Not on filedocumented in this encounter Care Teams Instructional Leader Relationship Specialty Start Date End Date Guero Colunga DO PCP - General Internal Medicine 03/22/19 04/18/23 Amber Montesinos RN Scaling Machine Operator Transplant 11/17/19 Jil Duncan MD Consulting Physician Infectious Diseases 01/10/20 Anita Gillespie MD Medical Oncologist/Product Designer Medical Oncology 10/07/20 Tabitha Hurley MD [address] [facility] [address] [place] [address] Consulting Physician Rheumatology 10/22/21 documented as of this encounter
--- OUTSIDE RECORDS SUMMARY | 2024-10-28 06:13 | XMS_ITS | Encounter Summary ---
Author Organization [facility] Home Care Servic es Address [address] [place] [address] Phone Care Team Providers Care Head Batcher Name Role Phone Guero Colunga Primary Care Provider [phone] Amber Montesinos RN Unavailable [phone] Jil Duncan MD Unavailable [phone] Anita Gillespie MD Unavailable [phone] Tabitha Hurley MD Unavailable [phone] Reason for Visit * Auth/Cert Specialty Diagnoses / Procedures Referred By Contac t Referred To Contact Referral ID Status Reason Start Date Expiration Date Visits Re quested Visits Authorized [id number] 1 1 Encounter Details Date Type Department Care Team (Late st Contact Info) Description 2022 8:15 AM CDT Home Care Visit [facility] [address] [address] [address] [place] [address] Parish Vyas, SHAILESH SN HOME VISIT Social [...] on file 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 Gender Identity Not on file Sexual Orientation Straight 08/22/2021 9: 23 AM CDT documented as of this encounter Last Filed Vital Signs Vital Sign Reading Time Taken Comments Blood Pressure 110/60 2022 9:18 AM CDT Pulse 67 2022 9:18 AM CDT Temperature 37.2 ??C (98.9 ??F) 2022 9:18 AM CD T Respiratory Rate 16 2022 9:18 AM CDT Oxygen Saturation 99% 2022 9:18 AM CDT Inhaled Oxygen Concentration - - Weight 56.7 kg (125 lb) 2022 9:18 AM CDT Height 172.7 cm (5' 8 ) 2022 9:18 AM CDT Body Mass Index 19.01 2022 9:18 AM CDT documented in this encounter Plan [...] Dose Rate Site 0.9 % sodium chloride ([facility] sodium chloride 0.9%) injection 10 mL, intravenous, As needed, line care, Starting on 01/31/22 at 0920, Indications: line patencyIndications:line patency Given 2022 9:20 AM CDT 10 mL heparin lock flush, porcine, 10 unit/mL solution 5 mL, intravenous, As needed, line patency, Starting on 01/31/22 at 0920, Indications: Maintain Patency of Indwelling Vascular CatheterIndications:Maintain Patency of Indwelling Vascular Catheter Given 2022 9:20 AM CDT 5 mL documented in this encounter Home Health Visit - Care Plan Visit Details Visit Type -SN Home Visit Discipline -Jail Problems Problem Description Start Date Status Goals Interventions Medications Disciplines: Jail Management of IV Medications 12/20/2021 Active - 1 problem intervention scheduled/documen mohsen in this visit Need to Collect Specimen Sample Disciplines: Jail Need to collect specimen sample 12/20/2021 Active - 1 problem intervention scheduled/documen mohsen in this visit Safety concerns Disciplines: Jail Safety needs related to infusion administration 12/20/2021 Active - 1 problem intervention scheduled/documen mohsen in this visit Learning/Teachin g Needs - IV Therapy Disciplines: Jail Teaching and learning needs for performing home IV therapy 12/20/2021 Active - 6 problem interventions scheduled/documen mohsen in this visit Monitor patient's vital signs every home health visit Disciplines: SN, PT, OT, MEAT CARVER, ENTRY WRITER, Skilled Disciplines Monitor patient's vital signs every [...] visit during episode of care Description: Home holistic nutritionist to measure vital signs during every home [...] drug allergies, and potential complications. Problem:Medications Scheduled Draw Labs Description: Add Directr Bilirubin to labs on 01/24/[address] Theodore Gresham/Amber Vargas RN/Rosemarie CASH Problem:Need to Collect Specimen Sample Completed CBC/CMP/GGT/Tacro trough/CMV PCR drawn from PICC and taken to [facility] Instruct on IV complications Description: Instruct patient/caregiver on how to manage breaks in line, signs/symptoms of complications, who to contact for complications and how to contact the nurse, MD and infusion service Problem:Safety concerns Completed Verbalizes good understanding of potential IV complications and management of same. Instruct on IV supplies Description: [...] needed, and timeframe in which to call. Instruct Infection Prevention Description: Instruct patient/caregiver in strategies to prevent infection. Instruct patient/caregiver on how to recognize signs and symptoms of infection and when to notify HH nurse and/or physician. Problem:Learning/Teac kofi Needs - IV Therapy Completed Patient instructed on frequent/proper hand-washing techniques, Standard precautions, avoid crowds and persons with known infections, staying current with immunizations, s/s of infection, use of incentive spirometer, use of antibiotics and encourage adequate diet and fluid intake. Patient verbalizes and demonstrates knowledge of home management of IV catheter. Dressing change Description: Skilled Nurse to instruct [...] Needs - IV Therapy Completed Dressing change to left performed by SN. Old dressing removed. Well tolerated by patient.. Site aseptic cleanser. Allow to air dry. Applied transparent film. Secured with transparent film. See Wound Assessment form for measurements and status of wound. IV Access Care/Maintenance Description: Skilled Nurse to [...] include good handwashing, aseptic technique as per [facility] Home Infusion Policies and Procedures, and troubleshooting/manag ement. Instruct on IV flush Description: Instruct patient/caregiver in how to perform flushing of IV line according to MD orders or protocol. Problem:Learning/Teac kofi Needs - IV Therapy Completed Pt verbalizes good understanding of IV flush procedure using aseptic technique as per [facility] HH Infusion policy. IV Administration Description: Skilled Nurse to instruct [...] Problem:Infection Prevention Goal:Verbalize signs of infection Completed Patient verbalizes good understanding of infection prevention including handwashing and aseptic technique. Educate Family on Infection Prevention Description: Instructed family on signs and symptoms of infection IE: fever, odor, change in color, increased amount of drainage, purulent drainage, warmth. Problem:Infection Prevention Goal:Verbalize signs of infection Completed Family verbalizes good understanding of infection prevention including handwashing and aseptic technique. Assess safety Description: Assess patient safety Problem:Safety concerns Goal:Demonstrate use of safety precautions Scheduled documented in this encounter Home Health Visit - Actions and Narratives Actions PICC dressing change/labs dr iniguez. Pt tolerates well. All vital signs fall within acceptable parameters. documented in this encounter Care Teams Head Batcher Relationship Specialty Start Date End Date Guero Colunga DO PCP - General Internal Medicine 03/22/19 04/18/23 Amber Montesinos, SHAILESH Coating Mixer Supervisor Transplant 11/17/19 Jil Duncan MD Consulting Physician Infectious Diseases 01/10/20 Anita Gillespie MD Medical Oncologist/Global Human Resources Director Medical Oncology 10/07/20 Tabitha Hurley MD [address] [facility] [address] [place] [address] Consulting Physician Rheumatology 10/22/21 documented as of this encounter
--- OUTSIDE RECORDS SUMMARY | 2024-10-28 06:13 | XMS_ITS | Encounter Summary ---
Author Organization [facility] Healthcare Address [address] [place] [address] Care Team Providers Care Dyno Technician Name Role Phone Guero Colunga Primary Care Provider [phone] Amber Montesinos RN Unavailable [phone] Jil Duncan MD Unavailable [phone] Anita Gillespie MD Unavailable [phone] Tabitha Hurley MD Unavailable [phone] Encounter Details Date Type Department Care Team (Latest Contact Info) Description 2022 12:33 PM CDT - 2022 11:59 PM CDT Hospital Encounter [id number] [place] [address] Discharge Disposition: Discharge to home [...] file 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 Indications: line patency 2 ganciclovir (CYTOVENE) 500 mg injection Infuse 5.7 mL (285 mg total) into a venous catheter every 12 (twelve) hours 01/19/2022 2 heparin lock flush, porcine, 10 unit/mL solutionIndicati ons:Maintain Patency of Indwelling Vascular Catheter Infuse 5 mL into a venous catheter as needed (line patency). Indications: prevent clot from blocking an intravenous catheter 2 letermovir (PREVYMIS) 480 mg tablet Take 1 tablet (480 mg total) by mouth daily 30 tablet 10/06/2021 2 letermovir (PREVYMIS) 480 mg tablet Take 1 tablet (480 mg total) by mouth daily 01/19/2022 2 tacrolimus (PROGRAF) 0.5 mg immediate-releas e capsule Take 1 capsule (0.5 mg total) by mouth daily 30 capsule 11 12/08/2021 2 traZODone (DESYREL) 50 mg tablet Take 1 tablet (50 mg total) by mouth nightly 30 tablet 11/10/2021 2 ursodioL (ACTIGALL) 300 mg capsule Take 2 capsules (600 mg total) by mouth daily with dinner 180 capsule 3 10/02/2021 3 valGANciclovir (VALCYTE) 450 mg tabletIndication s:cytomegaloviru s disease Take 2 tablets (900 mg total) by mouth 2 (two) times a day 120 tablet 11/13/2020 2 documented as of this encounter Discharge Disposition Disposition Code Departure Means Destination Discharge to home or self care documented in this encounter Miscellaneous Notes * Result Encounter Note - Amber Vargas RN - 2022 11:59 PM CDT Reviewed with patient/mom via [employer]. They are unsure timing of patient's medication. 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 HH usually comes around 8am/9am. We have reviewed timing for accurate troughs but patient stating this is difficult for him due to his work schedule and he fears that he will miss a dose if he takes it after he leaves for work. Will have him note what time he takes it Wednesday for labs on Wednesday. documented in this encounter Plan of Treatment Pending Results Name Type Priority Associated Diagnoses Date /Time Comprehensive metabolic panel (Outreach) Lab Routine 2022 1:27 PM CDT Scheduled Procedures Name Priority Associated Diagnoses Date/Ti ak COLONOSCOPY Encounter for screening for colorectal cancer in high risk patient Family history of rectal cancer documented as of this encounter Procedures Procedure Name Priority Date/Time Associated Diagnosis Comments CYTOMEGALOVIRUS (CMV) DNA, QUANT GEN LAB Routine 2022 9:00 AM CDT GLUCOSE, RANDOM (OUTREACH) Routine 2022 9:00 AM CDT EGFR Routine 2022 9:00 AM CDT DIFFERENTIAL AUTO Routine 2022 9:0 0 AM CDT TACROLIMUS LEVEL, TROUGH Routine 2022 9:00 AM CDT COMPREHENSIVE METABOLIC PANEL WITHOUT GLUCOSE (OUTREACH) Routine 2022 9:00 AM CDT CBC WITH AUTO DIFFERENTIAL Routine 2022 9:00 AM CDT GAMMA GT Routine 2022 9:00 AM CDT documented in this encounter Results * eGFR (2022 9:00 AM CDT) eGFR 129 mL/min/1. 73 m2 [facility]3] Comment: Interpretive Data Reference Interval Normal ?>/= [...] interpretive data was last reviewed 2021. Blood 2022 9:00 AM CDT 2022 12:59 PM CDT Ige Sonido Duncan MD LAB BLOOD ORDERABLES Final Result [facility]3] [address] Department [place] [address] * (ABNORMAL) Differential, auto (2022 9:00 AM CDT) [facility] Neutrophil abs 3.3 1.7 - 6.5 K/cumm [facility]3] Imm gran abs 0.0 0.0 - 0.1 K/cumm [facility]3] Lymphocyte abs 3.3 0.8 - 3.3 K/cumm [facility]3] Monocyte abs 1.4(H) 0.2 - 0.8 K/cumm [facility]3] Eosinophil abs 0.2 0.0 - 0.5 K/cumm [facility]3] Basophil abs 0.1 0.0 - 0.1 K/cumm [facility]3] Neutrophil pct 38.9 % [facility]3] Comment: Interpretive Data Percent cell count reference ranges are not reported, since discordance with absolute values may lead to misinterpretation of CBC data. Current Interpretive Data was last revised on 2018. Imm gran pct 0.2 % [facility]3] Comment: Interpretive Data Percent cell count reference ranges are not reported, since discordance with absolute values may lead to misinterpretation of CBC data. Current Interpretive Data was last revised on 2018. Lymphocyte pct 39.8 % [facility]3] Comment: Interpretive Data Percent cell count reference ranges are not reported, since discordance with absolute values may lead to misinterpretation of CBC data. Current Interpretive Data was last revised on 2018. Monocyte pct 17.1 % [facility]3] Comment: Interpretive Data Percent cell count reference ranges are not reported, since discordance with absolute values may lead to misinterpretation of CBC data. Current Interpretive Data was last revised on 2018. Eosinophil pct 2.9 % [facility]3] Comment: Interpretive Data Percent cell count reference ranges are not reported, since discordance with absolute values may lead to misinterpretation of CBC data. Current Interpretive Data was last revised on 2018. Basophil pct 1.1 % [facility]3] Comment: Interpretive Data Percent cell count reference ranges are not reported, since discordance with absolute values may lead to misinterpretation of CBC data. Current Interpretive Data was last revised on 2018. Blood 2022 9:00 AM CDT 2022 12:49 PM CDT us Ige Sonido Duncan MD LAB BLOOD ORDERABLES Final Result [facility]3] [address] Department [place] [address] * Tacrolimus level trough (2022 9:00 AM CDT) [facility] Tacrolimus trough 9.5 ng/mL [facility]3] Comment: Interpretive Data Testing performed by liquid chromatography-tandem mass spectrometry. ??Therapeutic concentrations vary depending on type of transplanted organ and time elapsed since transplant. ??Typical trough concentrations range from 5-15 ng/mL. ??This test was developed and its performance characteristics determined by the [facility] consistent with CLIA requirements. ??This test has not been cleared or approved by the [place] Food and Drug administration. ??Current interpretive data last reviewed 2020. Testing performed by: [facility], [address] [facility], [place]., [address] Blood 2022 9:00 AM CDT 2022 7:02 PM CDT Jil Duncan MD LAB BLOOD ORDERABLES Final Result Performing Organization Address [facility] Co de Phone Number [facility]3] [address] [place] [address] * (ABNORMAL) Gamma GT (2022 9:00 AM CDT) [facility] GGT 78(H) 10 - 50 Units/L [facility]3] Blood 2022 9:00 AM CDT 2022 12:48 PM CDT Jil Duncan MD LAB BLOOD ORDERABLES Final Result Performing Organization Address [facility] de Phone Number [facility]3] [address] [place] [address] * (ABNORMAL) Cytomegalovirus (CMV) DNA PCR, quantitative Blood (2022 9:00 AM CDT) [facility] CMV DNA Detected( A) [facility]3] Comment: Interpretive Data: The quantifiable range of this assay is 34 IUnits/mL to 10,000,000 IUnits/mL (1.53 log IUnits/mL to 7.0 log IUnits/mL). Testing was performed by the [employer] 6800 CMV Test ([employer] [place] Testing performed at [facility]. Current interpretive data was last revised on 2021. Testing performed by: [facility], [address] [place]., [address] CMV DNA IU/mL 100 IUnits/mL [facility]3] Comment:Testing performed by : [facility], [address] [place]., [address] CMV DNA log IU/mL 2.00 log IUnits/mL [facility]3] Comment:Testing performed by : [facility], [address] [place]., [address] Blood 2022 9:00 AM CDT 2022 7:21 PM CDT us Ige Sonido Duncan MD LAB MICROBIOLOGY - GENERAL ORDERABLES Final Result [facility]3] [address] Department [place] [address] * (ABNORMAL) CBC with auto differential (2022 9:00 AM CDT) WBC 8.4 3.8 - 9.9 K/cumm [facility]3] Hgb 13.1 13.0 - 17.5 g/dL [facility]3] Hct 37.4(L) 38.9 - 50.3 % [facility]3] Plt 175 150 - 400 K/cumm [facility]3] MPV 10.6 9.1 - 12.3 fL [facility]3] RBC 3.64(L) 4.30 - 5.80 M/cumm [facility]3] MCV 102.7(H) 81.3 - 96.4 fL [facility]3] MCH 36.0(H) 27.1 - 33.3 pg [facility]3] MCHC 35.0 32.3 - 35.7 g/dL [facility]3] RDW CV 16.7(H) 11.1 - 14.9 % [facility]3] RDW SD 64.1(H) 35.7 - 48.1 fL [facility]3] NRBC abs 0.00 0.00 - 0.01 K/cumm [facility]3] Blood 2022 9:00 AM CDT 2022 12:49 PM CDT Jil Duncan MD LAB BLOOD ORDERABLES Final Result Performing Organization Address [facility] Co de Phone Number [facility]3] [address] Department [place], [place] [id number] * Glucose, random (Outreach) (2022 9:00 AM CDT) Glucose 87 70 - 199 mg/dL [facility]3] Comment: Interpretive Data Fasting glucose >/= 126 [...] interpretive data was last revised 2017. Blood 2022 9:00 AM CDT 2022 12:48 PM CDT Jil Duncan MD LAB BLOOD ORDERABLES Final Result Performing Organization Address [facility] de Phone Number [facility]3] [address] [place] [address] * (ABNORMAL) Comprehensive metabolic panel, without glucose (Outreach) (2022 9:00 AM CDT) Sodium 142 135 - 145 mmol/L [facility]3] Potassium, pl 4.2 3.3 - 4.9 mmol/L [facility]3] Chloride 111(H) 97 - 110 mmol/L [facility]3] CO2 20(L) 22 - 32 mmol/L [facility]3] Anion gap 11 2 - 15 mmol/L [facility]3] BUN 8 8 - 25 mg/dL [facility]3] Creatinine 0.68(L) 0.80 - 1.30 mg/dL [facility]3] Calcium 8.7 8.5 - 10.3 mg/dL [facility]3] Protein, pl 5.9(L) 6.5 - 8.5 g/dL [facility]3] Albumin 3.5 3.5 - 5.0 g/dL [facility]3] Bilirubin, total 1.1 0.1 - 1.2 mg/dL [facility]3] Alk phos 281(H) 40 - 130 Units/L [facility]3] AST 47 10 - 50 Units/L [facility]3] ALT 42 7 - 55 Units/L [facility]3] Blood 2022 9:00 AM CDT 2022 12:48 PM CDT Jil Duncan MD LAB BLOOD ORDERABLES Final Result [facility]3] [address] Department [place] [address] documented in this encounter Visit Diagnoses Not on filedocumented in this encounter Care Teams Dyno Technician Relationship Specialty Start Date End Date Gene ColungaeDO PCP - General Internal Medicine 03/22/19 04/18/23 Amber Montesinos, SHAILESH Case Specialist Transplant 11/17/19 Jil Duncan MD Consulting Physician Infectious Diseases 01/10/20 Anita Gillespie MD Medical Oncologist/Forensic Audit Expert Medical Oncology 10/07/20 Tabitha Hurley MD [address] [facility] [address] [place] [address] Consulting Physician Rheumatology 10/22/21 documented as of this encounter
--- OUTSIDE RECORDS SUMMARY | 2024-10-28 06:13 | XMS_ITS | Encounter Summary ---
Author Organization [facility] Address [address] [place] [address] Phone Care Team Providers Care Bulb Assembler Name Role Phone Guero Colunga DO Primary Care Provider [phone] Amber Montesinos RN Unavailable [phone] Jil Duncan MD Unavailable [phone] Anita Gillespie MD Unavailable [phone] Tabitha Hurley MD Unavailable [phone] Encounter Details Date Type Department Care Team (Late st Contact Info) Description 03/09/2022 Telephone [facility] Infectious Diseases [address] [place] [address] Pavan Owen, Radhames Social History Tobacco [...] on file 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 Just let me know and I can escribe on Wednesday. * Telephone Encounter - Pavan Owen RMA - 03/09/2022 3:35 PM CDT Pharmacy need script for the [facility]ibavir [facility] and also med will need a PA pharmacy will work on it they need most recent office note. fax [phone] documented in this encounter Plan of Treatment Scheduled Procedures Name Priority Associated Diagnoses Date/Ti me COLONOSCOPY Encounter for screening for colorectal cancer in high risk patient Family history of rectal cancer documented as of this encounter Visit Diagnoses Not on filedocumented in this encounter Care Teams Bulb Assembler Relationship Specialty Start Date End Date Guero Colunga DO PCP - General Internal Medicine 03/22/19 04/18/23 Amber Montesinos RN Social Security Assessor Transplant 11/17/19 Jil Duncan MD Consulting Physician Infectious Diseases 01/10/20 Anita Gillespie MD Medical Oncologist/Race Relations Adviser Medical Oncology 10/07/20 Tabitha Hurley MD [address] [facility] 14 [place] [address] Consulting Physician Rheumatology 10/22/21 documented as of this encounter
--- OUTSIDE RECORDS SUMMARY | 2024-10-28 06:13 | XMS_ITS | Encounter Summary ---
Author Organization [facility] Address [address] [place] [address] Phone Care Team Providers Care Strap Buckler Name Role Phone Guero Colunga DO Primary Care Provider [phone] Amber Montesinos RN Unavailable [phone] Jil Duncan MD Unavailable [phone] Anita Gillespie MD Unavailable [phone] Tabitha Hurley MD Unavailable [phone] Encounter Details Date Type Department Care Team (Late st Contact Info) Description 02/17/2022 9:00 AM CDT Telemedicine [facility] ENT [address] [facility] Medical Office Building [address] [place] [address] Massiel Gastelum MD [address] [facility] [address] [place] [address] Chronic pansinusitis (Primary Dx) Social History Tobacco [...] on file 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 male. Chief Complaint: No chief complaint on file. HPI: Beka Nichols is a 27 y.o. male with h/o liver transplant, PTLD, CVID, initially referred by Dr. Gillespie, here for follow-up of recurrent sinusitis. He was last seen 12/25/21. He was treated with Antibiotics x 1 in early December, none since that time.Prior to last office visit, he had been treated with multiple courses of abx including Augmentin, Levaquin, Currently using OTC cold medication or Claritin prn. Not using steroid nasal spray - used a few times in Dec, not since. Using saline irrigation -typically clear and not productive of mucus. Continues to feel stuffy nose.. Rare epistaxis. In morning, nasal stuffiness. Intermittent PND with cough. Some cough at night, intermittent. Nose blowing sometimes productive of thick mucus. 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 H/o nasal fracture 06/16/21. Recurrent sinus infection issues pre-date this injury. Unclear whether breathing is more difficult or not after this injury. 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 Stopped valganciclovir recently. Review of Systems The patient-completed Review of Systems was reviewed and was scanned as an attachment to this encounter. Objective There were no vitals taken for this visit. Physical Exam Voice quality is normal. No cough Data Reviewed: CT sinus 02/11/22 FINDINGS: ?? Review of the topogram demonstrates no abnormalities. There is opacification of the right frontal sinus. Partial opacification of the ethmoid air cells. Mucosal thickening of bilateral maxillary sinuses with partial opacification of left maxillary sinus. Mild mucosal thickening of the sphenoid sinuses. The ostiomeatal units are opacified, left more than right. The nasal septum is minimally deviated to the left. No areas of bony erosion are identified. The orbits are normal. Limited view of the frontal lobes is normal. ?? IMPRESSION: Moderate uncomplicated paranasal sinus disease as described above. Assessment/Plan 1. Chronic pansinusitis Recommend regular use of steroid nasal irrigation (budesonide). Reviewed technique with patient. Discussed option for endoscopic sinus surgery with patient in detail. Since he has not used topicalnasal steroid with regularity, plan to try this first. Should his symptoms persist, then will considering pursuing FESS. Follow-up 4-6 weeks (telehealth) Michael Gastelum MD FACS Professor Department of Otolaryngology [facility] This was a telemedicine visit with Beka howell which took place via Telephone Other - patient preference. During the visit, I was located at home and the patient was located at home in the [facility]. The patient visit started at 9:08 and ended at 9:23. My total encounter time on 02/17/2022 was 19 minutes which was spent in the activities [...] a telephone or video visit during the [facility] emergencywas explained to them. After being given an opportunity to ask questions about and discuss this type of visit, they verbally consented to proceeding with the telephone/video visit and understand thatthis service replaces an office visit. documented in this encounter Plan of Treatment Scheduled Procedures Name Priority Associated Diagnoses Date/Ti ga COLONOSCOPY Encounter for screening for colorectal cancer in high risk patient Family history of rectal cancer documented as of this encounter Visit Diagnoses Diagnosis Chronic pansinusitis- Primary Other chronic sinusitis documented in this encounter Care Teams Strap Buckler Relationship Specialty Start Date End Date Guero Colunga DO PCP - General Internal Medicine 03/22/19 04/18/23 Amber Montesinos, SHAILESH Cook Fry Transplant 11/17/19 Jil Duncan MD Consulting Physician Infectious Diseases 01/10/20 Anita Gillespie MD Medical Oncologist/Reel Cutter Medical Oncology 10/07/20 Tabitha Hurley MD [address] [facility] 14 [place] [address] Consulting Physician Rheumatology 10/22/21 documented as of this encounter
--- OUTSIDE RECORDS SUMMARY | 2024-10-28 06:13 | XMS_ITS | Encounter Summary ---
Author Organization [facility] Address [address] [place] [address] Phone Care Team Providers Care Customer Sales Consultant Name Role Phone Guero Colnuga DO Primary Care Provider [phone] Amber Montesinos RN Unavailable [phone] Jil Duncan MD Unavailable [phone] Anita Gillespie MD Unavailable [phone] Tabitha Hurley MD Unavailable [phone] Reason for Visit * Reason Onset Date Comments opat 01/14/2022 Encounter Details Date Type Department Care Team (Late st Contact Info) Description 01/14/2022 Telephone [facility] Infectious Diseases [address] [place] [address] Ny Griffin opat Social History Tobacco [...] file 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 Gender Identity Not on file Sexual Orientation Straight 08/22/2021 9: 23 AM CDT documented as of this encounter Miscellaneous Notes * Telephone Encounter - GloriasagarNy Arianna - 01/14/2022 2:43 PM CDT Labs from 01/10/22 CBC: WNL for patient CMP: WNL for patient CMV PCR: 402 Provider aware of results documented in this encounter Plan of Treatment Scheduled Procedures Name Priority Associated Diagnoses Date/Ti me COLONOSCOPY Encounter for screening for colorectal cancer in high risk patient Family history of rectal cancer documented as of this encounter Visit Diagnoses Not on filedocumented in this encounter Care Teams Customer Sales Consultant Relationship Specialty Start Date End Date Guero Colunga DO PCP - General Internal Medicine 03/22/19 04/18/23 Amber Montesinos, SHAILESH Boiler Shop Supervisor Transplant 11/17/19 Jil Duncan MD Consulting Physician Infectious Diseases 01/10/20 Anita Gillespie MD Medical Oncologist/Computer Graphic Designer Medical Oncology 10/07/20 Tabitha Hurley MD [address] [facility] 14 [place] [address] Consulting Physician Rheumatology 10/22/21 documented as of this encounter
--- OUTSIDE RECORDS SUMMARY | 2024-10-28 06:13 | XMS_ITS | Encounter Summary ---
Author Organization [facility] Address [address] [place] [address] Care Team Providers Care Armoured Corps Officer Name Role Phone Guero Colunga Primary Care Provider [phone] Amber Montesinos RN Unavailable [phone] Jil Dunacn MD Unavailable [phone] Anita Gillespie MD Unavailable [phone] Tabitha Hurley MD Unavailable [phone] Encounter Details Date Type Department Care Team (Late st Contact Info) Description 02/12/2022 Documentation [facility] Transplant Liver [address] [address] [address] [id number] [place], [place] [id number] Amber Montesinos RN Social History Tobacco Use [...] on file 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 Brooklynn reporting that patient has had trouble getting tacrolimus levels drawn at the correct time due to his work schedule and the schedule of the [email or web address]. Now that patient's IV infusions are discontinued, he has more flexibility togo to the lab when it works best for his schedule. Reviewed timing of labs for taking tacrolimus daily. Discussed next labs needed for ID with AIDEN Fry. They would like another CMV PCR around 2 weeks. Reviewed with Brooklynn to please have our labs done around this time as well so that we may adjust his dose if needed. Our standing order should include a CMV PCR. documented in this encounter Plan of Treatment Scheduled Procedures Name Priority Associated Diagnoses Date/Ti me COLONOSCOPY Encounter for screening for colorectal cancer in high risk patient Family history of rectal cancer documented as of this encounter Visit Diagnoses Not on filedocumented in this encounter Care Teams Armoured Corps Officer Relationship Specialty Start Date End Date Guero Colunga DO PCP - General Internal Medicine 03/22/19 04/18/23 Amber Montesinos RN X Ray Technologist Transplant 11/17/19 Jil Duncan MD Consulting Physician Infectious Diseases 01/10/20 Anita Gillespie MD Medical Oncologist/Burner Operator Medical Oncology 10/07/20 Tabitha Hurley MD [address] [facility] 14 [place] [address] Consulting Physician Rheumatology 10/22/21 documented as of this encounter
--- OUTSIDE RECORDS SUMMARY | 2024-10-28 06:13 | XMS_ITS | Encounter Summary ---
Author Organization [facility] Address [address] [place] [address] Phone Care Team Providers Care Director Prison Name Role Phone Guero Colunga Primary Care Provider [phone] Amber Montesinos RN Unavailable [phone] Jil Duncan MD Unavailable [phone] Anita Gillespie MD Unavailable [phone] Tabitha Hurley MD Unavailable [phone] Encounter Details Date Type Department Care Team (Late st Contact Info) Description 02/10/2022 Orders Only [facility] [address] [place] [address] Melony Jerome, [facility] Social History Tobacco Use Types Packs/Day Years [...] file 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 documented in this encounter Plan of Treatment Scheduled Procedures Name Priority Associated Diagnoses Date/Ti me COLONOSCOPY Encounter for screening for colorectal cancer in high risk patient Family history of rectal cancer documented as of this encounter Visit Diagnoses Not on filedocumented in this encounter Care Teams Director Prison Relationship Specialty Start Date End Date Guero Colunga DO PCP - General Internal Medicine 03/22/19 04/18/23 Amber Montesinos RN Vessel Master Transplant 11/17/19 Jil Duncan MD Consulting Physician Infectious Diseases 01/10/20 Anita Gillespie MD Medical Oncologist/Dispatcher Relay Medical Oncology 10/07/20 Tabitha Hurley MD [address] [place] [address] Consulting Physician Rheumatology 10/22/21 documented as of this encounter
--- OUTSIDE RECORDS SUMMARY | 2024-10-28 06:13 | XMS_ITS | Encounter Summary ---
Author Organization [facility] Address [address] [place] [address] Phone Care Team Providers Care User Interface Artist Name Role Phone Guero Colunga DO Primary Care Provider [phone] Amber Montesinos RN Unavailable [phone] Jil Duncan MD Unavailable [phone] Anita Gillespie MD Unavailable [phone] Tabitha Hurley MD Unavailable [phone] Massiel Gastelum MD Unavailable [phone] Encounter Details Date Type Department Care Team (Late st Contact Info) Description 03/09/2022 Orders Only [facility] Infectious Diseases [address] [place] [address] [address] [place] [address] Jil Duncan MD 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 Gender Identity Not on file Sexual Orientation Straight 08/22/2021 9: 23 AM CDT documented as of this encounter Miscellaneous Notes * Addendum Note - Dea Lorenzo - 03/09/2022 1:05 PM CDTAddended by: DEA LORENZO on: 02/12/2023 08:18 AM Modules accepted: Orders documented in this encounter Plan of Treatment Scheduled Orders Name Type Priority Associated Diagnoses Orde r Schedule CMV mutation detection Blood Microbiology Routine 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HCC) Expected: 03/09/2022, Expires: 03/09/2023 Scheduled Procedures Name Priority Associated Diagnoses Date/Ti me COLONOSCOPY Encounter for screening for colorectal cancer in high risk patient Family history of rectal cancer documented as of this encounter Visit Diagnoses Diagnosis 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 documented in this encounter Additional Health Concerns Infection Onset Date Last Indicated Resolved Time COVID: Suspected 07/09/2022 07/09/2022 07/09/2022 2:27 PM CDT Adenovirus, contact + droplet 07/09/2022 07/09/2022 07/16/2022 3:05 AM CDT Rhino/Enterovirus 07/09/2022 07/09/2022 07/16/2022 3:05 AM CDT documented as of this encounter Care Teams User Interface Artist Relationship Specialty Start Date End Date Guero Colunga DO PCP - General Internal Medicine 03/22/19 04/18/23 Amber Montesinos, SHAILESH Building Consultant Transplant 11/17/19 Jil Duncan MD Consulting Physician Infectious Diseases 01/10/20 Anita Gillespie MD Medical Oncologist/Forest Products Teacher Medical Oncology 10/07/20 Tabitha Hurley MD [address] [facility] 14 [place], [place] [id number] Consulting Physician Rheumatology 10/22/21 Massiel Gastelum MD [address] [place], [place] [address] Consulting Physician Otolaryngology 08/27/22 documented as of this encounter
--- OUTSIDE RECORDS SUMMARY | 2024-10-28 06:13 | XMS_ITS | Encounter Summary ---
Author Organization [facility] Address [address] [place] [address] Phone Care Team Providers Care Spider Assembler Name Role Phone Guero Colunga DO Primary Care Provider [phone] Amber Montesinos RN Unavailable [phone] Jil Duncan MD Unavailable [phone] Anita Gillespie MD Unavailable [phone] Tabitha Hurley MD Unavailable [phone] Encounter Details Date Type Department Care Team (Late st Contact Info) Description 03/06/2022 Orders Only [facility] Infectious Diseases [address] [place] [address] [address] [place] [address] Jil Duncan MD [address] [place] [address] [address] [place] [address] Social History Tobacco Use Types Packs/Day Years [...] on file Legal Sex Male 6:[address] Gender Identity Not on file Sexual Orientation Straight 08/22/2021 9: 23 AM CDT documented as of this encounter Ordered Prescriptions Prescription Sig Dispense Quantity Refills Last Filled Start Date End Date maribavir 200 mg tablet Take 2 tablets (400 mg total) by mouth 2 (two) times a day 120 tablet 1 03/06/2022 2 documented in this encounter Plan of Treatment Scheduled Procedures Name Priority Associated Diagnoses Date/Ti me COLONOSCOPY Encounter for screening for colorectal cancer in high risk patient Family history of rectal cancer documented as of this encounter Visit Diagnoses Not on filedocumented in this encounter Care Teams Spider Assembler Relationship Specialty Start Date End Date Guero Colunga DO PCP - General Internal Medicine 03/22/19 04/18/23 Amber Montesinos RN Extract Wringer Transplant 11/17/19 Jil Duncan MD Consulting Physician Infectious Diseases 01/10/20 Anita Gillespie MD Medical Oncologist/Stock Clerk Self Service Store Medical Oncology 10/07/20 Tabitha Hurley MD [address] [facility] 14 [place] [address] Consulting Physician Rheumatology 10/22/21 documented as of this encounter
--- OUTSIDE RECORDS SUMMARY | 2024-10-28 06:13 | XMS_ITS | Encounter Summary ---
Author Organization [facility] Address [address] [place] [address] Phone Care Team Providers Care Mac Developer Name Role Phone Guero Clounga DO Primary Care Provider Amber Montesinos RN Unavailable [phone] Jil Duncan MD Unavailable [phone] Anita Gillespie MD Unavailable [phone] Tabitha Hurley MD Unavailable [phone] Encounter Details Date Type Department Care Team (Late st Contact Info) Description 03/06/2022 Orders Only [facility] Infectious Diseases [address] [place] [address] [address] [place] [address] Jil Duncan MD [address] [place] [address] [address] [place] [address] Social History Tobacco Use Types Packs/Day Years [...] on file 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 Gender Identity Not on file Sexual Orientation Straight 08/22/2021 9: 23 AM CDT documented as of this encounter Progress Notes * Ny Griffin - 03/06/2022 9:57 AM CDT Error documented in this encounter Plan of Treatment Scheduled Procedures Name Priority Associated Diagnoses Date/Ti me COLONOSCOPY Encounter for screening for colorectal cancer in high risk patient Family history of rectal cancer documented as of this encounter Visit Diagnoses Not on filedocumented in this encounter Care Teams Mac Developer Relationship Specialty Start Date End Date Guero Colunga DO PCP - General Internal Medicine 03/22/19 04/18/23 Amber Montesinos, SHAILESH High School Sports Coach Transplant 11/17/19 Jil Duncan MD Consulting Physician Infectious Diseases 01/10/20 Anita Gillespie MD Medical Oncologist/Ramp Service Employee Medical Oncology 10/07/20 Tabitha Hurley MD [address] [facility] 14 [place] [address] Consulting Physician Rheumatology 10/22/21 documented as of this encounter
--- OUTSIDE RECORDS SUMMARY | 2024-10-28 06:13 | XMS_ITS | Encounter Summary ---
Author Organization [facility] Address [address] [place] [address] Phone Care Team Providers Care Basketball Player Name Role Phone Guero Colunga DO Primary Care Provider [phone] Amber Montesinos RN Unavailable [phone] Jil Duncan MD Unavailable [phone] Anita Gillespie MD Unavailable [phone] Tabitha Hurley MD Unavailable [phone] Encounter Details Date Type Department Care Team (Late st Contact Info) Description 03/02/2022 Orders Only [facility] ENT [address] [facility] Medical Office Building [address] [place] [address] Massiel Gastelum MD [address] [facility] [address] [place] [address] Social History Tobacco Use Types Packs/Day Years [...] file 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 Gender Identity Not on file Sexual Orientation Straight 08/22/2021 9: 23 AM CDT documented as of this encounter Ordered Prescriptions Prescription Sig Dispense Quantity Refills Last Filled Start Date End Date amoxicillin-clavul anate (Augmentin) 875-125 mg per tablet Take 1 tablet by mouth 2 (two) times a day for 10 days 20 tablet 03/02/2022 03/12/2022 documented in this encounter Plan of Treatment Scheduled Procedures Name Priority Associated Diagnoses Date/Ti me COLONOSCOPY Encounter for screening for colorectal cancer in high risk patient Family history of rectal cancer documented as of this encounter Visit Diagnoses Not on filedocumented in this encounter Care Teams Basketball Player Relationship Specialty Start Date End Date Guero Colunga DO PCP - General Internal Medicine 03/22/19 04/18/23 Amber Montesinos, SHAILESH Seo Strategist Transplant 11/17/19 Jil Duncan MD Consulting Physician Infectious Diseases 01/10/20 Anita Gillespie MD Medical Oncologist/Mine Expert Medical Oncology 10/07/20 Tabitha Hurley MD [address] [facility] 14 [place] [address] Consulting Physician Rheumatology 10/22/21 documented as of this encounter
--- OUTSIDE RECORDS SUMMARY | 2024-10-28 06:13 | XMS_ITS | Encounter Summary ---
Author Organization [facility] Address [address] [place] [address] Phone Care Team Providers Care Manager Store Name Role Phone Guero Colunga DO Primary Care Provider [phone] Amber Mnotesinos RN Unavailable [phone] Jil Duncan MD Unavailable [phone] Anita Gillespie MD Unavailable [phone] Tabitha Hurley MD Unavailable [phone] Reason for Visit * Reason Onset Date Comments opat 01/23/2022 Encounter Details Date Type Department Care Team (Late st Contact Info) Description 01/23/2022 Telephone [facility] Infectious Diseases [address] [place] [phone] Ny Griffin opat Social History Tobacco [...] on file 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 Gender Identity Not on file Sexual Orientation Straight 08/22/2021 9: 23 AM CDT documented as of this encounter Miscellaneous Notes * Telephone Encounter - Ny Griffin - 01/23/2022 2:09 PM CDT Labs from 01/17/22 CBC: PLTS: 149 (148) CMP: Bili: 1.9 (1.1) Alk Phos: 273 (307) AST: 62 (66) CMV PCR: 651 (402) documented in this encounter Plan of Treatment Scheduled Procedures Name Priority Associated Diagnoses Date/Ti me COLONOSCOPY Encounter for screening for colorectal cancer in high risk patient Family history of rectal cancer documented as of this encounter Visit Diagnoses Not on filedocumented in this encounter Care Teams Manager Store Relationship Specialty Start Date End Date Guero Colunga DO PCP - General Internal Medicine 03/22/19 04/18/23 Amber Montesinos, SHAILESH Glass Novelty Maker Transplant 11/17/19 Jil Duncan MD Consulting Physician Infectious Diseases 01/10/20 Anita Gillespie MD Medical Oncologist/Dough Panner Medical Oncology 10/07/20 Tabitha Hurley MD [address] [facility] 14 [place] [address] Consulting Physician Rheumatology 10/22/21 documented as of this encounter
--- OUTSIDE RECORDS SUMMARY | 2024-10-28 06:13 | XMS_ITS | Encounter Summary ---
Author Organization [facility] Address [address] [place] [address] Phone Care Team Providers Care Training And Documentation Specialist Name Role Phone Guero Colunga DO Primary Care Provider [phone] Amber Montesinos RN Unavailable [phone] Jil Duncan MD Unavailable [phone] Anita Gillespie MD Unavailable [phone] Tabitha Hurley MD Unavailable [phone] Encounter Details Date Type Department Care Team (Late st Contact Info) Description 03/06/2022 Documentation [facility] Infectious Diseases [address] [place] [phone] Flor Rae, [facility] Social History Tobacco Use Types [...] on file 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 Per pharmacy, both Prevymis and Livtencityrequire prior authorizations. Pharmacy will obtain santana for Cover My Meds, then fax to our office. Awaiting fax. Communicated with Dr. Duncan and nurse coordinator Ny. documented in this encounter Plan of Treatment Scheduled Procedures Name Priority Associated Diagnoses Date/Ti me COLONOSCOPY Encounter for screening for colorectal cancer in high risk patient Family history of rectal cancer documented as of this encounter Visit Diagnoses Not on filedocumented in this encounter Care Teams Training And Documentation Specialist Relationship Specialty Start Date End Date Guero Colunga DO PCP - General Internal Medicine 03/22/19 04/18/23 Amber Montesinos RN Stone Derrickman And Rigger Transplant 11/17/19 Jil Duncan MD Consulting Physician Infectious Diseases 01/10/20 Anita Gillespie MD Medical Oncologist/Business Asst Medical Oncology 10/07/20 Tabitha Hurley MD [address] [facility] 14 [place] [address] Consulting Physician Rheumatology 10/22/21 documented as of this encounter
--- OUTSIDE RECORDS SUMMARY | 2024-10-28 06:13 | XMS_ITS | Encounter Summary ---
Author Organization [facility] Address [address] [place] [address] Phone Care Team Providers Care Central Office Installer Name Role Phone Guero Colunga DO Primary Care Provider [phone] Amber Montesinos RN Unavailable [phone] Jil Duncan MD Unavailable [phone] Anita Gillespie MD Unavailable [phone] Tabitha Hurley MD Unavailable [phone] Encounter Details Date Type Department Care Team (Latest Contact Info) Description 02/16/2022 9:40 AM CDT Telemedicine [facility] Infectious Diseases [address] [place] [address] [address] [place] [address] Lisandra Auguste, PLAYGROUND WORKER [address] [place] [address] [address] [place] [address] Cytomegalovirus infection, unspecified cytomegaloviral infection type (HCC) [...] file 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 [...] [place] [address]. He was also noted to have lymphadenopathy [...] he was started on IV ganciclovir 12/20/21. Interval History: Telephone visit completed today. He reports doing well since last visit and has no acute complaints. His labs have continued to show decreasing CMV viremia (last viral load 111 on 02/07) but he has notbecome undetectable. It was decided that given his continued low level viremia on antiviral therapythat his risk of developing resistance was greater than the benefit he would receive with continuedantiviral therapy therefore his antivirals were discontinued last week and PICC line was removed. He will have repeat labs on 02/28. ROS: Review of Systems Constitutional: Negative for activity change, appetite change, chills, diaphoresis, fatigue, fever and unexpected weight change. Gastrointestinal: Negative for abdominal pain, diarrhea, nausea and vomiting. Musculoskeletal: Negative for arthralgias and myalgias. Skin: Negative for rash. Objective Medical Conditions Diagnosis ??? Cytomegalovirus infection (HCC) ??? History of liver transplant (CMS/HCC) (HCC) ??? Idiopathic thrombocytopenic purpura (HCC) ??? 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 Autoimmune hepatitis (CMS/HCC) (HCC) ??? Hypogammaglobulinemia (CMS/HCC) (HCC) ??? 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 Immunocompromised patient (CMS/HCC) (HCC) ??? Lymphadenopathy ??? 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HCC) ??? Fever ??? Elevated LFTs ??? On antiviral therapy ??? Myalgia ??? Muscle weakness Allergies: Patient has no known allergies. HOME MEDICATIONS : tacrolimus (PROGRAF) 0.5 mg immediate-release capsule traZODone (DESYREL) 50 mg tablet ursodioL (ACTIGALL) 300 mg capsule Lab/Microbiology/Radiology/Diagnostic Review: Laboratory: Lab Results Component Value Date WBC 7.9 02/11/2022 HGB 13.3 (L) 02/11/2022 HCT 38.6 (L) 02/11/2022 MCV 107.4 (H) 02/11/2022 LABPLAT 140 02/11/2022 Lab Results Component Value Date GLUCOSE 96 02/11/2022 CALCIUM 8.5 02/11/2022 SODIUM 140 02/11/2022 POTASSIUM 4.2 02/11/2022 CO2 22 02/11/2022 CHLORIDE 112 (H) 02/11/2022 BUNSER 8 02/11/2022 CREATININE 0.62 (L) 02/11/2022 Lab Results Component Value Date ALT 38 02/11/2022 AST 44 02/11/2022 ALKPHOS 296 (H) 02/11/2022 BILITOT 1.2 02/11/2022 Lab Results Component Value Date CMVDNAIUML 111 02/07/2022 CMVDNAIUML 100 2022 CMVDNAIUML 147 01/24/2022 CMVDNAIUML 651 01/17/2022 CMVDNAIUML 402 01/10/2022 CMVDNAIUML 523 01/03/2022 CMVDNAIUML 569 12/27/2021 CMVDNAIUML 514 12/20/2021 CMVDNAIUML 14,600 (Critical) 10/01/2021 CMVDNAIUML <137 03/08/2021 Assessment/Plan 27 y.o. male with history of refractory ITP s/p splenectomy in 2012, autoimmune hepatitis s/p livertransplant 03/30/19 c/b PTLD (c-Myc, EBV+) s/p CHOP x 1 (2016), DA=EPOCH-R x 5 (09/2017-12/2017) withIT MTX who achieved complete remission 12/2017 with intermittent CMV viremia since 06/2019.??Started on Valcyte 900 mg PO BID 10/2021 due to recurrent CMV viremia and later switched to IV ganciclovir on 12/20/21. Letermovir added to regimen. Cytomegalovirus infection (CMS/HCC) - IV ganciclovir and PO letermovir stopped [...] testing. Risk of continuing antivirals at this pointinclude developing mutations/drug resistance. Given he is clinically doing well and viremia is very low he should remain off all antivirals at this time and monitor. Will repeat CMV levels in 2 weeksand he should monitor closely for any clinical signs/symptoms of CMV infection. He is agreeable to plan and will call with any issues - Discussed with patient the rational for treatment, culture results, risk of recurrent infection, signs/symptoms of recurrent infection, and to contact ID clinic with any questions or concerns Follow up: - Return if symptoms worsen or fail to improve. Visit Diagnosis: 1. Cytomegalovirus infection, unspecified cytomegaloviral infection type (HCC) Lisandra Ramirez the Nurse Practitioner, have reviewed this patient with the supervising MD present in the office suite, Dr. Duncan. This was a telemedicine visit with Beka Nichols alone which took place via Telephone Other - patient/provider preference. During the visit, I was located in the office and the patient was located at home in the [facility]. The patient visit started at 0940 and ended at 951. My total encounter time on 02/16/2022 was 25 minutes which was spent in [...] a telephone or video visit during the COVID-19 public health emergencywas explained to them. After being given an opportunity to ask questions about and discuss this type of visit, they verbally consented to proceeding with the telephone/video visit and understand thatthis service replaces an office visit. documented in this encounter Miscellaneous Notes * Assessment & Plan Note - Lisandra Auguste NP - 02/17/2022 12:35 PM CDT Associated Problem(s): Cytomegalovirus infection (HCC) - IV ganciclovir and PO letermovir stopped [...] testing. Risk of continuing antivirals at this pointinclude developing mutations/drug resistance. Given he is clinically doing well and viremia is very low he should remain off all antivirals at this time and monitor. Will repeat CMV levels in 2 weeksand he should monitor closely for any clinical signs/symptoms of CMV infection. He is agreeable to plan and will call with any issues - Discussed with patient the rational for treatment, culture results, risk of recurrent infection, signs/symptoms of recurrent infection, and to contact ID clinic with any questions or concerns documented in this encounter Plan of Treatment Scheduled Procedures Name Priority Associated Diagnoses Date/Ti me COLONOSCOPY Encounter for screening for colorectal cancer in high risk patient Family history of rectal cancer documented as of this encounter Visit Diagnoses Diagnosis Cytomegalovirus infection, unspecified cytomegaloviral infection type (HCC)- Primary documented in this encounter Care Teams Central Office Installer Relationship Specialty Start Date End Date Carson Colungadenise PCP - General Internal Medicine 03/22/19 04/18/23 Amber Montesinos RN Clip Riveter Transplant 11/17/19 Jil Duncan MD Consulting Physician Infectious Diseases 01/10/20 Anita Gillespie MD Medical Oncologist/Rn Heart Medical Oncology 10/07/20 Tabitha Hurley MD [address] [facility] 14 [place] [address] Consulting Physician Rheumatology 10/22/21 documented as of this encounter
--- OUTSIDE RECORDS SUMMARY | 2024-10-28 06:13 | XMS_ITS | Encounter Summary ---
Author Organization [facility] Address [address] [place] [address] Phone Care Team Providers Care Geology Faculty Member Name Role Phone Guero Colunga DO Primary Care Provider [phone] Amber Montesinos RN Unavailable [phone] Jil Duncan MD Unavailable [phone] Anita Gillespie MD Unavailable [phone] Tabitha Hurley MD Unavailable [phone] Encounter Details Date Type Department Care Team (Late st Contact Info) Description 03/06/2022 Orders Only [facility] Infectious Diseases [address] [place] [phone] Ny Griffin Social History Tobacco Use Types Packs/Day Years [...] file 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 Gender Identity Not on file Sexual Orientation Straight 08/22/2021 9: 23 AM CDT documented as of this encounter Ordered Prescriptions Prescription Sig Dispense Quantity Refills Last Filled Start Date End Date valGANciclovir (VALCYTE) 450 mg tabletIndications: cytomegalovirus disease Take 2 tablets (900 mg total) by mouth 2 (two) times a day 120 tablet 1 03/06/2022 2 letermovir (PREVYMIS) 480 mg tablet Take 1 tablet (480 mg total) by mouth daily 30 tablet 1 03/06/2022 2 documented in this [...] mouth 2 (two) times a day Reorder 11/13/2020 03/06/2022 letermovir (PREVYMIS) 480 mg tablet Take 1 tablet (480 mg total) by mouth daily Reorder 10/06/2021 03/06/2022 documented as of this encounter Care Teams Geology Faculty Member Relationship Specialty Start Date End Date Cristine GueroDO PCP - General Internal Medicine 03/22/19 04/18/23 Amber Montesinos RN Parking Enforcement Specialist Transplant 11/17/19 Jil Duncan MD Consulting Physician Infectious Diseases 01/10/20 Anita Gillespie MD Medical Oncologist/Box Toe Maker Medical Oncology 10/07/20 Tabitha Hurley MD [facility] [address] [place] [address] Consulting Physician Rheumatology 10/22/21 documented as of this encounter
--- OUTSIDE RECORDS SUMMARY | 2024-10-28 06:13 | XMS_ITS | Encounter Summary ---
Author Organization [facility] Address [address] [place] [address] Phone Care Team Providers Care Multimedia Coordinator Name Role Phone Guero Colunga DO Primary Care Provider [phone] Amber Montesinos RN Unavailable [phone] Jil Duncan MD Unavailable [phone] Anita Gillespie MD Unavailable [phone] Tabitha Hurley MD Unavailable [phone] Reason for Visit * Reason Onset Date Comments labs 03/05/2022 Encounter Details Date Type Department Care Team (Late st Contact Info) Description 03/05/2022 Telephone [facility] Infectious Diseases [address] [place] [phone] Ny Griffin Arianna labs Social History [...] Legal 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 Duncan CMV result is in epic from the weekend. ----- Message ----- From: Ny Griffin Sent: 03/02/2022 8:52 AM CDT To: Amber Vargas RN, Ige MD Zhang Azar Meagan. I will keep an eye out for the next couple of days for it. PAUL [place]. I will let you know if and when it results. ----- Message ----- From: Amber Vargas RN Sent: 03/02/2022 8:37 AM CDT To: Ny Alejandra, The only thing I see is a CBC. I am not sure if that is all [facility] did or why that is the only thingthat has resulted. ----- Message ----- From: Ny Griffin Sent: 03/02/2022 8:23 AM CDT To: SHAILESH Valentino, Just wondering if you had seen ashley's CMV level from Wednesday? Thanks Ny ----- Message ----- From: Lisandra Auguste NP Sent: 03/02/2022 12:00 AM CDT To: Ny Griffin CMV level should have been drawn over the weekend, make sure Ige sees them :) :) documented in this encounter Plan of Treatment Scheduled Procedures Name Priority Associated Diagnoses Date/Ti me COLONOSCOPY Encounter for screening for colorectal cancer in high risk patient Family history of rectal cancer documented as of this encounter Visit Diagnoses Not on filedocumented in this encounter Care Teams Multimedia Coordinator Relationship Specialty Start Date End Date Guero Colunga DO PCP - General Internal Medicine 03/22/19 04/18/23 Amber Montesinos, SHAILESH Health Care Liaison Transplant 11/17/19 Jil Duncan MD Consulting Physician Infectious Diseases 01/10/20 Anita Gillespie MD Medical Oncologist/Thread Grinder Medical Oncology 10/07/20 Tabitha Hurley MD [address] [facility] 14 [place] [address] Consulting Physician Rheumatology 10/22/21 documented as of this encounter
--- OUTSIDE RECORDS SUMMARY | 2024-10-28 06:13 | XMS_ITS | Encounter Summary ---
Author Organization [facility] Home Care Servic es Address [address] [place] [address] Phone Care Team Providers Care Inbound Sales Advisor Name Role Phone Guero Colunga Primary Care Provider [phone] Amber Montesinos RN Unavailable [phone] Jil Duncan MD Unavailable [phone] Anita Gillespie MD Unavailable [phone] Tbaitha Hurley MD Unavailable [phone] Reason for Visit * Auth/Cert Specialty Diagnoses / Procedures Referred By Contac t Referred To Contact Referral ID Status Reason Start Date Expiration Date Visits Re quested Visits Authorized [id number] 1 1 Encounter Details Date Type Department Care Team (Late st Contact Info) Description 01/17/2022 8:15 AM CDT Home Care Visit 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 Gender Identity Not on file Sexual Orientation [...] Dose Rate Site 0.9 % sodium chloride ([facility] sodium chloride 0.9%) injection 10 mL, intravenous, As needed, line care, Starting on 01/17/22 at 1130, Indications: line patencyIndications:line patency Given 01/17/2022 11:30 AM CDT 10 mL heparin lock flush, porcine, 10 unit/mL solution 5 mL, intravenous, As needed, line patency, Starting on 01/17/22 at 1130, Indications: Maintain Patency of Indwelling Vascular CatheterIndications:Maintain Patency of Indwelling Vascular Catheter Given 01/17/2022 11:30 AM CDT 5 mL documented in this encounter Home Health Visit - Care Plan Visit Details Visit Type -SN Home Visit Discipline -Alf Problems Problem Description Start Date Status Goals Interventions Medications Disciplines: Alf Management of IV Medications 12/20/2021 Active - 1 problem intervention scheduled/documen mohsen in this visit Need to Collect Specimen Sample Disciplines: Alf Need to collect specimen sample 12/20/2021 Active - 1 problem intervention scheduled/documen mohsen in this visit Safety concerns Disciplines: Alf Safety needs related to infusion administration 12/20/2021 Active - 1 problem intervention scheduled/documen mohsen in this visit Learning/Teachin g Needs - IV Therapy Disciplines: Alf Teaching and learning needs for performing home IV therapy 12/20/2021 Active - 6 problem interventions scheduled/documen mohsen in this visit Monitor patient's vital signs every home health visit Disciplines: SN, PT, OT, ORAL COMMUNICATION INSTRUCTOR, PROPERTY CLAIMS MANAGER, Skilled Disciplines Monitor patient's vital signs every [...] goal interventions scheduled/documen mohsen in this visit Goals Goal Associated Problem Outcome Goal Met? Visit Notes Measure vital signs during every home health visit during episode of care Description: Home poultry hanger to measure vital signs during every home [...] a copy of all lab results to [facility] at [phone] Fax also to Liver Transplant [phone] Problem:Need to Collect Specimen Sample Completed Sample obtained from PICC using aseptic technique for CBC and CMP, GGT, tacrolimus trough, as ordered. Well tolerated by patient. Labs taken to [facility]. Instruct on IV complications Description: Instruct patient/caregiver on how to manage breaks in line, signs/symptoms of complications, who to contact for complications and how to contact the nurse, MD and infusion service Problem:Safety concerns Completed Verbalizes good understanding of IV complications. Instruct on IV supplies Description: Instruct patient/caregiver [...] are needed, and timeframe in which to call.Pt and family verbalize good understanding of how to order supplies, what supplies are needed, and timeframe in which to call. Instruct Infection Prevention Description: Instruct patient/caregiver in strategies to prevent infection. Instruct patient/caregiver on how to recognize signs and symptoms of infection and when to notify nurse and/or physician. Problem:Learning/Teac kofi Needs - IV Therapy Completed Patient instructed on frequent/proper hand-washing techniques, Standard precautions, avoid crowds and persons with known infections, staying current with immunizations, s/s of infection, use of incentive spirometer, use of antibiotics and encourage adequate diet and fluid intake. Patient demonstrates knowledge of home management of IV catheter. IV Access Care/Maintenance Description: Skilled Nurse to [...] include good handwashing, aseptic technique as per [facility] Home Infusion Policies and Procedures, and troubleshooting/manag ement. Instruct on IV flush Description: Instruct patient/caregiver in how to perform flushing of IV line according to MD orders or protocol. Problem:Learning/Sabihac kofi Needs - IV Therapy Completed Pt verbalizes good understanding of IV flush procedure using aseptic technique as per [facility] Infusion policy.Pt verbalizes good understanding of IV flush procedure using aseptic technique as per [facility] Infusion policy. IV Administration Description: Skilled Nurse [...] PICC Problem:Learning/Teac kofi Needs - IV Therapy Scheduled [...] of infection prevention including handwashing and aseptic technique.Patient verbalizes good understanding of infection prevention including handwashing and aseptic technique. Educate Family on Infection Prevention Description: Instructed family on signs and symptoms of infection IE: fever, odor, change in color, increased amount of drainage, purulent drainage, warmth. Problem:Infection Prevention Goal:Verbalize signs of infection Completed Family verbalizes good understanding of infection prevention including handwashing and aseptic technique.Family verbalizes good understanding of infection prevention including handwashing and aseptic technique. Instruct Fall Prevention Description: Instruct patient/caregiver in methods to prevent falls Problem:Safety concerns Goal:Demonstrate use of safety precautions Completed Pt does not require fall precautions. Assess safety Description: Assess patient safety Problem:Safety concerns Goal:Demonstrate use of safety precautions Scheduled documented in this encounter Home Health Visit - Actions and Narratives Actions PICC line dressing changed, labs drawn. Pt tolerates well. Verbalizes good understanding of plan of care. documented in this encounter Care Teams Inbound Sales Advisor Relationship Specialty Start Date End Date Guero Colunga DO PCP - General Internal Medicine 03/22/19 04/18/23 Amber Montesinos, SHAILESH Speech Language Pathologist Prn Transplant 11/17/19 Jil Duncan MD Consulting Physician Infectious Diseases 01/10/20 Anita Gillespie MD Medical Oncologist/Restaurant Shift Supervisor Medical Oncology 10/07/20 Tabitha Hurley MD [address] [facility] [address] [place] [address] Consulting Physician Rheumatology 10/22/21 documented as of this encounter
--- OUTSIDE RECORDS SUMMARY | 2024-10-28 06:13 | XMS_ITS | Encounter Summary ---
Author Organization [facility] Address [address] [place] [address] Phone Care Team Providers Care Passenger Tire Builder Name Role Phone Guero Colunga DO Primary Care Provider [phone] Amber Montesinos RN Unavailable [phone] Jil Duncan MD Unavailable [phone] Anita Gillespie MD Unavailable [phone] Tabitha Hurley MD Unavailable [phone] Encounter Details Date Type Department Care Team (Late st Contact Info) Description 03/09/2022 Orders Only [facility] Infectious Diseases [address] [place] [address] [address] [place] [address] Jil Duncan MD [address] [place] [address] [address] [place] [address] Social History Tobacco Use Types Packs/Day Years [...] on file 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 Gender Identity Not on file Sexual Orientation Straight 08/22/2021 9: 23 AM CDT documented as of this encounter Ordered Prescriptions Prescription Sig Dispense Quantity Refills Last Filled Start Date End Date maribavir 200 mg tablet Take 2 tablets (400 mg total) by mouth 2 (two) times a day 120 tablet 11 03/09/2022 2 maribavir 200 mg tablet Take 2 tablets (400 mg total) by mouth 2 (two) times a day 28 tablet 1 03/09/2022 2 documented in this encounter Plan of Treatment Scheduled Procedures Name Priority Associated Diagnoses Date/Ti me COLONOSCOPY Encounter for screening for colorectal cancer in high risk patient Family history of rectal cancer documented as of this encounter Visit Diagnoses Not on filedocumented in this encounter Care Teams Passenger Tire Builder Relationship Specialty Start Date End Date Guero Colunga DO PCP - General Internal Medicine 03/22/19 04/18/23 Amber Montesinos, SHAILESH Software Support Analyst Transplant 11/17/19 Jil Duncan MD Consulting Physician Infectious Diseases 01/10/20 Anita Gillespie MD Medical Oncologist/Catering Director Medical Oncology 10/07/20 Tabitha Hurley MD [address] [facility] [address] [place] [address] Consulting Physician Rheumatology 10/22/21 documented as of this encounter
--- OUTSIDE RECORDS SUMMARY | 2024-10-28 06:13 | XMS_ITS | Encounter Summary ---
Author Organization [facility] Home Care Servic es Address [address] [place] [address] Phone Care Team Providers Care Customs Compliance Manager Name Role Phone Guero Colunga Primary Care Provider [phone] Amber Montesinos RN Unavailable [phone] Jil Duncan MD Unavailable [phone] Anita Gillespie MD Unavailable [phone] Tabitha Hurley MD Unavailable [phone] Reason for Visit * Auth/Cert Specialty Diagnoses / Procedures Referred By Contac t Referred To Contact Referral ID Status Reason Start Date Expiration Date Visits Re quested Visits Authorized [id number] 1 1 Encounter Details Date Type Department Care Team (Late st Contact Info) Description 01/10/2022 8:00 AM SALES AND MARKETING ADMINISTRATOR Home Care Visit [facility] Health [address] [address] [address] [place] [address] Parish Vyas, SHAILESH SN HOME VISIT Social [...] on file Legal Sex Male 6:28 AM SALES AND MARKETING ADMINISTRATOR Gender Identity Not on file Sexual [...] Dose Rate Site 0.9 % sodium chloride ([facility] sodium chloride 0.9%) injection 10 mL, intravenous, As needed, line care, Starting on 01/10/22 at 0919, Indications: line patencyIndications:line patency Given 01/10/2022 9:19 AM SALES AND MARKETING ADMINISTRATOR 10 mL heparin lock flush, porcine, 10 unit/mL solution 5 mL, intravenous, As needed, line patency, Starting on 01/10/22 at 0919, Indications: Maintain Patency of Indwelling Vascular CatheterIndications:Maintain Patency of Indwelling Vascular Catheter Given 01/10/2022 9:19 AM SALES AND MARKETING ADMINISTRATOR 5 mL documented in this encounter Home Health Visit - Care Plan Visit Details Visit Type -SN Home Visit Discipline -Residential Problems Problem Description Start Date Status Goals Interventions Medications Disciplines: Residential Management of IV Medications 12/20/2021 Active - 1 problem intervention scheduled/documen mohsen in this visit Need to Collect Specimen Sample Disciplines: Residential Need to collect specimen sample 12/20/2021 Active - 1 problem intervention scheduled/documen mohsen in this visit Safety concerns Disciplines: Residential Safety needs related to infusion administration 12/20/2021 Active - 1 problem intervention scheduled/documen mohsen in this visit Learning/Teachin g Needs - IV Therapy Disciplines: Residential Teaching and learning needs for performing home IV therapy 12/20/2021 Active - 6 problem interventions scheduled/documen mohsen in this visit Monitor patient's vital signs every home health visit Disciplines: SN, PT, OT, DANCE PROFESSOR, CHEMICAL SPRAYER, Skilled Disciplines Monitor patient's vital signs every [...] visit during episode of care Description: Home teacher physically impaired to measure vital signs during every home [...] a copy of all lab results to [facility] at [phone] Fax also to Liver Transplant [phone] Problem:Need to Collect Specimen Sample Completed Sample obtained from PICC using aseptic technique for CBC and CMP,GGT [place] trough as ordered. Well tolerated by patient. Labs taken by public health aide to [facility]. Instruct on IV complications Description: Instruct patient/caregiver on how to manage breaks in line, signs/symptoms of complications, who to contact for complications and how to contact the nurse, MD and infusion service Problem:Safety concerns Completed Pt and family verbalize good understanding of potential IV complications [...] when to notify nurse and/or physician. Problem:Learning/Teac kfoi Needs - IV Therapy Completed Patient instructed on frequent/proper hand-washing techniques, Standard precautions, avoid crowds and persons with known infections, staying current with immunizations, s/s of infection, use of incentive spirometer, use of antibiotics and encourage adequate diet and fluid intake. Patient demonstrate knowledge of home management of IV catheter. [...] good handwashing, aseptic technique as per [facility] Home Infusion Policies and Procedures, and troubleshooting/manag ement. Instruct on IV flush Description: Instruct patient/caregiver in how to perform flushing of IV line according to MD orders or protocol. Problem:Learning/Teac kofi Needs - IV Therapy Completed Pt verbalizes good understanding of IV flush procedure using aseptic technique as per [facility] HH Infusion policy. IV Administration Description: Skilled [...] concerns Goal:Demonstrate use of safety precautions Scheduled Assess safety Description: Assess patient safety Problem:Safety concerns Goal:Demonstrate use of safety precautions Scheduled documented in this encounter Care Teams Customs Compliance Manager Relationship Specialty Start Date End Date Carson ColungadieDO PCP - General Internal Medicine 03/22/19 04/18/23 Amber Montesinos, SHAILESH Jigmaker Transplant 11/17/19 Jil Duncan MD Consulting Physician Infectious Diseases 01/10/20 Anita Gillespie MD Medical Oncologist/Packer Inspector Medical Oncology 10/07/20 Tabitha Hurley MD [address] [facility] [address] [place] [address] Consulting Physician Rheumatology 10/22/21 documented as of this encounter
--- OUTSIDE RECORDS SUMMARY | 2024-10-28 06:13 | XMS_ITS | Encounter Summary ---
Author Organization [facility] Address [address] [place] [address] Phone Care Team Providers Care Strategy Intern Name Role Phone Guero Colunga DO Primary Care Provider [phone] Amber Montesinos RN Unavailable [phone] Jil Duncan MD Unavailable [phone] Anita Gillespie MD Unavailable [phone] Tabitha Hurley MD Unavailable [phone] Encounter Details Date Type Department Care Team (Late st Contact Info) Description 03/06/2022 Orders Only [facility] Infectious Diseases [address] [place] [address] [address] [place] [address] Jil Duncan MD [address] [place] [address] [address] [place] [address] 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HCC) (Primary Dx) [...] on file 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 Gender Identity Not on file Sexual Orientation Straight 08/22/2021 9: 23 AM CDT documented as of this encounter Plan of Treatment Scheduled Orders Name Type Priority Associated Diagnoses Orde r Schedule Cytomegalovirus DNA, Qualitative, Real-Time PCR Lab Routine 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HCC) Expected: 03/06/2022, Expires: 03/06/2023 CMV resistance genotype - Miscellaneous Test Lab Routine 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HCC) Expected: 03/06/2022, Expires: 03/06/2023 Scheduled Procedures Name Priority Associated Diagnoses Date/Ti me COLONOSCOPY Encounter for screening for colorectal cancer in high risk patient Family history of rectal cancer documented as of this encounter Visit Diagnoses Diagnosis 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
--- OUTSIDE RECORDS SUMMARY | 2024-10-28 06:13 | XMS_ITS | Encounter Summary ---
Author Organization [facility] Healthcare Address [address] [place] [address] Care Team Providers Care Furniture Finisher Apprentice Name Role Phone Guero Colunga Primary Care Provider [phone] Amber Montesinos RN Unavailable [phone] Jil Duncan MD Unavailable [phone] Anita Gillespie MD Unavailable [phone] Tabitha Hurley MD Unavailable [phone] Reason for Referral * MRI/CAT/PET Scan (Routine) - Closed Specialty Diagnoses / Procedures Referred By Sascha rey Referred To Contact Radiology Diagnoses Frequent sinus infections Procedures CT Sinus Stealth WO Contrast Massiel Gastelum MD [address] [facility] [address] [place] [address] Phone: tel: fax: [address] [address] Referral ID Status Reason Start Date Expiration Date Visits Re quested Visits Authorized [id number] Closed 12/25/2021 02/08/2022 1 1 Reason for Visit * MRI/CAT/PET Scan (Routine) - Closed Specialty Diagnoses / Procedures Referred By Contac t Referred To Contact Radiology Diagnoses Frequent sinus infections Procedures CT Sinus Stealth WO Contrast Massiel Gastelum MD [address] [place] [address] Phone: tel: fax: [facility] [address] [facility] [place] [address] Referral ID Status Reason Start Date Expiration Date Visits Re quested Visits Authorized [id number] Closed 12/25/2021 02/08/2022 1 1 Encounter Details Date Type Department Care Team (Latest Contact Info) Description 02/11/2022 8:56 AM CDT - 02/11/2022 11:59 PM CDT Hospital Encounter [facility] Radiology [facility] ([facility]) [address] [place] [address] Massiel Gastelum MD [address] [place] [address] Frequent sinus infections Discharge Disposition: Discharge to home or self [...] on file 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 Gender Identity Not on file Sexual Orientation Straight 08/22/2021 9: 23 AM CDT documented as of this encounter Medications at Time of Discharge letermovir (PREVYMIS) 480 mg tablet Take 1 tablet (480 mg total) by mouth daily 30 tablet 10/06/2021 03/06/2022 tacrolimus (PROGRAF) 0.5 mg immediate-releas e capsule Take 1 capsule (0.5 mg total) by mouth daily 30 capsule 11 12/08/2021 05/25/2022 traZODone (DESYREL) 50 mg tablet Take 1 tablet (50 mg total) by mouth nightly 30 tablet 11/10/2021 03/05/2022 ursodioL (ACTIGALL) 300 mg capsule Take 2 capsules (600 mg total) by mouth daily with dinner 180 capsule 3 10/02/2021 12/31/2022 valGANciclovir (VALCYTE) 450 mg tabletIndication s:cytomegaloviru s disease Take 2 tablets (900 mg total) by mouth 2 (two) times a day 120 tablet 11/13/2020 03/06/2022 documented as of this encounter Discharge Disposition Disposition Code Departure Means Destination Discharge to home or self care documented in this encounter Plan of Treatment Scheduled Procedures Name Priority Associated Diagnoses Date/Ti ny COLONOSCOPY Encounter for screening for colorectal cancer in high risk patient Family history of rectal cancer documented as of this encounter Procedures Procedure Name Priority Date/Time Associated Diagnosis Comments CT SINUS STEALTH WO CONTRAST Schedule Routine, Read Routine (OP Routine) 02/11/2022 9:28 AM CDT Frequent sinus infections documented in this encounter Results * CT Sinus Stealth WO Contrast (02/11/2022 9:28 AM CDT) Anatomical Region Laterality Modality Head N/A Computed Tomogra phy 02/11/2022 10:5 7 AM CDT Impressions 02/11/2022 10:57 AM CDT Moderate uncomplicated paranasal sinus disease as described above. Electronically signed by: Claudine Starks M.D. Narrative 02/11/2022 10:57 AM CDT EXAMINATION: CT of the paranasal sinuses without contrast HISTORY: Recurrent sinusitis. TECHNIQUE: CT of the paranasal sinuses was performed using sinus protocol without contrast. COMPARISON: CT neck dated 10/01/2021. FINDINGS: Review of the topogram demonstrates no abnormalities. [...] the frontal lobes is normal. Procedure Note Claudine Starks MD - 02/11/2022 EXAMINATION: CT of the paranasal sinuses without contrast HISTORY: Recurrent sinusitis. TECHNIQUE: CT of the paranasal sinuses was performed using sinus protocol without contrast. COMPARISON: CT neck dated 10/01/2021. FINDINGS: Review of the topogram demonstrates no abnormalities. [...] of the frontal lobes is normal. IMPRESSION: Moderate uncomplicated paranasal sinus disease as described above. Electronically signed by: Claudine Starks M.D. Result [facility] Massiel Gastelum MD IM CT PROCEDURES [place] Result documented in this encounter Visit Diagnoses Diagnosis Frequent sinus infections documented in this encounter Care Teams Furniture Finisher Apprentice Relationship Specialty Start Date End Date Guero Colunga DO PCP - General Internal Medicine 03/22/19 04/18/23 Amber Montesinos RN Social Director Transplant 11/17/19 Jil Duncan MD Consulting Physician Infectious Diseases 01/10/20 Anita Gillespie MD Medical Oncologist/Bander Hand Medical Oncology 10/07/20 Tabitha Hurley MD [address] [facility] [address] [place] [address] Consulting Physician Rheumatology 10/22/21 documented as of this encounter
--- OUTSIDE RECORDS SUMMARY | 2024-10-28 06:13 | XMS_ITS | Encounter Summary ---
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 Gender Identity Not on file Sexual [...] CYTOMEGALOVIRUS (CMV) DNA, QUANT GEN LAB Routine 01/10/2022 9:00 AM STRUCTURES MECHANIC GLUCOSE, RANDOM (OUTREACH) Routine 01/10/2022 9:00 AM STRUCTURES MECHANIC EGFR Routine 01/10/2022 9:00 AM STRUCTURES MECHANIC DIFFERENTIAL AUTO Routine 01/10/2022 9:0 0 AM STRUCTURES MECHANIC TACROLIMUS LEVEL, TROUGH Routine 01/10/2022 9:00 AM STRUCTURES MECHANIC COMPREHENSIVE METABOLIC PANEL WITHOUT GLUCOSE (OUTREACH) Routine 01/10/2022 9:00 AM STRUCTURES MECHANIC CBC WITH AUTO DIFFERENTIAL Routine 01/10/2022 9:00 AM STRUCTURES MECHANIC GAMMA GT Routine 01/10/2022 9:00 AM STRUCTURES MECHANIC documented in this encounter Results * (ABNORMAL) Cytomegalovirus (CMV) DNA PCR, quantitative Blood (01/10/2022 9:00 AM STRUCTURES MECHANIC) CMV DNA Detected( A) [facility] Comment: Interpretive Data: The quantifiable range of this assay is 34 IUnits/mL to 10,000,000 IUnits/mL (1.53 log IUnits/mL to 7.0 log IUnits/mL). Testing was performed by the NIA 6800 CMV Test ([employer] Testing performed at [facility]. Current interpretive data was last revised on 2021. CMV DNA IU/mL 402 IUnits/mL [facility] CMV DNA log IU/mL 2.60 log IUnits/mL [facility] Blood 01/10/2022 9:00 AM STRUCTURES MECHANIC 01/10/2022 12:55 PM STRUCTURES MECHANIC us Theodore Gresham MD LAB MICROBIOLOGY - GENERAL ORDERABLES Final Result Performing Organization Address City/[facility] Co de Phone Number [facility] [place] [address] * eGFR (01/10/2022 9:00 AM STRUCTURES MECHANIC) eGFR >90 90 - 130 mL/min/1. 73 m2 [facility] Comment: Interpretive Data Reference Interval Normal [...] interpretive data was last reviewed 2021. Blood 01/10/2022 9:0 0 AM STRUCTURES MECHANIC 01/10/2022 11:47 AM STRUCTURES MECHANIC us Theodore Gresham MD LAB BLOOD ORDERABLES Final Result Performing Organization Address City/[facility] Co de Phone Number [facility]OOKE BUTCHER [facility] [place] [address] * (ABNORMAL) Differential, auto (01/10/2022 9:00 AM STRUCTURES MECHANIC) Neutrophil abs 2.4 1.7 - 6.5 K/cumm [facility] Imm gran abs 0.0 0.0 - 0.1 K/cumm [facility] Lymphocyte abs 4.2(H) 0.8 - 3.3 K/cumm [facility] Monocyte abs 1.3(H) 0.2 - 0.8 K/cumm [facility] Eosinophil abs 0.2 0.0 - 0.5 K/cumm [facility] Basophil abs 0.1 0.0 - 0.1 K/cumm [facility] Neutrophil pct 28.8 % [facility] Comment: Interpretive Data Percent cell count reference ranges are not reported, since discordance with absolute values may lead to misinterpretation of CBC data. Current Interpretive Data was last revised on 2018. Imm gran pct 0.2 % [facility] Comment: Interpretive Data Percent cell count reference ranges are not reported, since discordance with absolute values may lead to misinterpretation of CBC data. Current Interpretive Data was last revised on 2018. Lymphocyte pct 51.3 % [facility] Comment: Interpretive Data Percent cell count reference ranges are not reported, since discordance with absolute values may lead to misinterpretation of CBC data. Current Interpretive Data was last revised on 2018. Monocyte pct 15.7 % [facility] Comment: Interpretive Data Percent cell count reference ranges are not reported, since discordance with absolute values may lead to misinterpretation of CBC data. Current Interpretive Data was last revised on 2018. Eosinophil pct 2.7 % [facility] Comment: Interpretive Data Percent cell count reference ranges are not reported, since discordance with absolute values may lead to misinterpretation of CBC data. Current Interpretive Data was last revised on 2018. Basophil pct 1.3 % [facility] Comment: Interpretive Data Percent cell count reference ranges are not reported, since discordance with absolute values may lead to misinterpretation of CBC data. Current Interpretive Data was last revised on 2018. Blood 01/10/2022 9:00 AM STRUCTURES MECHANIC 01/10/2022 11:43 AM STRUCTURES MECHANIC us Theodore Gresham MD LAB BLOOD ORDERABLES Final Result Performing Organization Address [facility] Co de Phone Number [place] [address] * (ABNORMAL) Gamma GT (01/10/2022 9:00 AM STRUCTURES MECHANIC) GGT 97(H) 10 - 50 Units/L [facility] Blood 01/10/2022 9:00 AM STRUCTURES MECHANIC 01/10/2022 11:43 AM STRUCTURES MECHANIC us Theodore Gresham MD LAB BLOOD ORDERABLES Final Result Performing Organization Address [facility] [place] [address] * Tacrolimus level trough (01/10/2022 9:00 AM STRUCTURES MECHANIC) Tacrolimus trough 5.9 ng/mL [facility] Comment: Interpretive Data Testing performed by liquid chromatography-tandem mass spectrometry. ??Therapeutic concentrations vary depending on type of transplanted organ and time elapsed since transplant. ??Typical trough concentrations range from 5-15 ng/mL. ??This test was developed and its performance characteristics determined by the [facility] consistent with CLIA requirements. ??This test has not been cleared or approved by the [place] Food and Drug administration. ??Current interpretive data last reviewed 2020. Blood 01/10/2022 9:00 AM STRUCTURES MECHANIC 01/10/2022 11:43 AM STRUCTURES MECHANIC us Theodore Gresham MD LAB BLOOD ORDERABLES Final Result Performing Organization Address [facility] [place] [address] * (ABNORMAL) CBC with auto differential (01/10/2022 9:00 AM STRUCTURES MECHANIC) Pathologist [facility] WBC 8.2 3.8 - 9.9 K/cumm [facility] Hgb 12.2(L) 13.0 - 17.5 g/dL [facility] Hct 34.4(L) 38.9 - 50.3 % [facility] Plt 148(L) 150 - 400 K/cumm [facility] MPV 11.0 9.1 - 12.3 fL [facility] RBC 3.43(L) 4.30 - 5.80 M/cumm [facility] MCV 100.3(H) 81.3 - 96.4 fL [facility] MCH 35.6(H) 27.1 - 33.3 pg [facility] MCHC 35.5 32.3 - 35.7 g/dL [facility] RDW CV 17.9(H) 11.1 - 14.9 % [facility] RDW SD 66.2(H) 35.7 - 48.1 fL [facility] NRBC abs 0.00 0.00 - 0.01 K/cumm [facility] Blood 01/10/2022 9:00 AM STRUCTURES MECHANIC 01/10/2022 11:43 AM STRUCTURES MECHANIC Theodore Gresham MD LAB BLOOD ORDERABLES Final Result [facility] Department [place] [address] * Glucose, random (Outreach) (01/10/2022 9:00 AM STRUCTURES MECHANIC) [facility] Glucose 83 70 - 199 mg/dL [facility] Comment: [...] interpretive data was last revised 2017. Blood 01/10/2022 9:00 AM STRUCTURES MECHANIC 01/10/2022 11:43 AM STRUCTURES MECHANIC Theodore Gresham MD LAB BLOOD ORDERABLES Final Result [facility] [place] [address] * (ABNORMAL) Comprehensive metabolic panel, without glucose (Outreach) (01/10/2022 9:00 AM STRUCTURES MECHANIC) Sodium 141 135 - 145 mmol/L [facility] Potassium, pl 4.3 3.3 - 4.9 mmol/L [facility] Chloride 112(H) 97 - 110 mmol/L [facility] CO2 22 22 - 32 mmol/L [facility] Anion gap 7 2 - 15 mmol/L [facility] BUN 13 8 - 25 mg/dL [facility] Creatinine 0.69(L) 0.80 - 1.30 mg/dL [facility] Calcium 8.5 8.5 - 10.3 mg/dL [facility] Protein, pl 5.9(L) 6.5 - 8.5 g/dL [facility] Albumin 3.4(L) 3.5 - 5.0 g/dL [facility] Bilirubin, total 1.1 0.1 - 1.2 mg/dL [facility] Alk phos 307(H) 40 - 130 Units/L [facility] AST 66(H) 10 - 50 Units/L [facility] ALT 56(H) 7 - 55 Units/L [facility] Blood 01/10/2022 9:00 AM STRUCTURES MECHANIC 01/10/2022 11:43 AM STRUCTURES MECHANIC Theodore Gresham MD LAB BLOOD ORDERABLES Final Result [facility] [place] [address] documented in this encounter Visit Diagnoses Not on filedocumented in this encounter Care Teams [employer] Relationship Specialty Start Date End Date Guero Colunga DO PCP - General Internal Medicine 03/22/19 04/18/23 Amber Montesinos, SHAILESH [employer] Service Technician Transplant 11/17/19 Jil Duncan MD Consulting Physician Infectious Diseases 01/10/20 Anita Gillespie MD Medical Oncologist/Anesthesiology Fellow Medical Oncology 10/07/20 Tabitha Hurley MD [address] [address] [place] [address] Consulting Physician Rheumatology 10/22/21 documented as of this encounter
--- OUTSIDE RECORDS SUMMARY | 2024-10-28 06:13 | XMS_ITS | Encounter Summary ---
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 * Result Encounter Note - Lisandra Auguste NP - 02/10/2022 8:32 AM CDT Ny, can you please let him know that since viral loads are very low we are going to stop the IV ganciclovir. We also want him to stop the PO letermovir, he should not be on any antivirals anymore.He will need his line removed. I have to leave after morning clinic today for an appointment but will be available by phone or email if there are any issues. * Result Encounter Note - Amber Vargas RN - 01/30/2022 11:08 AM CDT Discussed with patient's mom. Patient taking tacro around 6-7am due to work schedule. documented in this encounter Plan of Treatment Scheduled Procedures Name Priority Associated Diagnoses Date/Ti nh COLONOSCOPY Encounter for screening for colorectal cancer in high risk patient Family history of rectal cancer documented as of this encounter Procedures Procedure Name Priority Date/Time Associated Diagnosis Comments CYTOMEGALOVIRUS (CMV) DNA, QUANT GEN LAB Routine 02/07/2022 8:30 AM CDT EGFR Routine 02/07/2022 8:30 AM CDT DIFFERENTIAL AUTO Routine 02/07/2022 8:3 0 AM CDT TACROLIMUS LEVEL, TROUGH Routine 02/07/2022 8:30 AM CDT CBC WITH AUTO DIFFERENTIAL Routine 02/07/2022 8:30 AM CDT GAMMA GT Routine 02/07/2022 8:30 AM CDT COMPREHENSIVE METABOLIC PANEL Routine 02/07/2022 8:30 AM CDT CYTOMEGALOVIRUS (CMV) DNA, QUANT GEN LAB Routine 01/24/2022 8:25 AM CDT GLUCOSE, RANDOM (OUTREACH) Routine 01/24/2022 8:25 AM CDT EGFR Routine 01/24/2022 8:25 AM CDT DIFFERENTIAL AUTO Routine 01/24/2022 8:2 5 AM CDT TACROLIMUS LEVEL, TROUGH Routine 01/24/2022 8:25 AM CDT COMPREHENSIVE METABOLIC PANEL WITHOUT GLUCOSE (OUTREACH) Routine 01/24/2022 8:25 AM CDT CBC WITH AUTO DIFFERENTIAL Routine 01/24/2022 8:25 AM CDT GAMMA GT Routine 01/24/2022 8:25 AM CDT documented in this encounter Results * eGFR (02/07/2022 8:30 AM CDT) [facility] eGFR 128 mL/min/1. 73 m2 [facility] Comment: Interpretive [...] interpretive data was last reviewed 2021. Blood 02/07/2022 8:30 AM CDT 02/07/2022 9:28 PM CDT us Ige Sonido Duncan MD LAB BLOOD ORDERABLES Final Result [facility] [address] Department [place] [address] * (ABNORMAL) Cytomegalovirus (CMV) DNA PCR, quantitative Blood (02/07/2022 8:30 AM CDT) CMV DNA Detected( A) [facility] Comment: Interpretive Data: The quantifiable range of this assay is 34 IUnits/mL to 10,000,000 IUnits/mL (1.53 log IUnits/mL to 7.0 log IUnits/mL). Testing was performed by the NIA 6800 CMV Test ([employer] Testing performed at [facility]. Current interpretive data was last revised on 2021. Testing performed by: [facility], [address] [place]., [address] CMV DNA IU/mL 111 IUnits/mL [facility] Comment:Testing performed by : [facility], [address] [place]., [address] CMV DNA log IU/mL 2.05 log IUnits/mL [facility] Comment:Testing performed by : [facility], [address] [facility], [place]., [address] Blood 02/07/2022 8:30 AM CDT 02/08/2022 1:34 AM CDT us Ige Sonido Duncan MD LAB MICROBIOLOGY - GENERAL ORDERABLES Final Result [facility] [address] Department [place] [address] * (ABNORMAL) Differential, auto (02/07/2022 8:30 AM CDT) Neutrophil abs 3.4 1.7 - 6.5 K/[facility]umm [facility] gran abs 0.0 0.0 - 0.1 K/cumm [facility] Lymphocyte abs 3.8(H) 0.8 - 3.3 K/cumm [facility] Monocyte abs 1.5(H) 0.2 - 0.8 K/cumm [facility] Eosinophil abs 0.2 0.0 - 0.5 K/cumm [facility] Basophil abs 0.1 0.0 - 0.1 K/cumm [facility] Neutrophil pct 37.6 % [facility] Comment: Interpretive Data Percent cell count reference ranges are not reported, since discordance with absolute values may lead to misinterpretation of CBC data. Current Interpretive Data was last revised on 2018. Imm gran pct 0.1 % [facility] Comment: Interpretive Data Percent cell count reference ranges are not reported, since discordance with absolute values may lead to misinterpretation of CBC data. Current Interpretive Data was last revised on 2018. Lymphocyte pct 42.0 % [facility] Comment: Interpretive Data Percent cell count reference ranges are not reported, since discordance with absolute values may lead to misinterpretation of CBC data. Current Interpretive Data was last revised on 2018. Monocyte pct 16.6 % [facility] Comment: Interpretive Data Percent cell count reference ranges are not reported, since discordance with absolute values may lead to misinterpretation of CBC data. Current Interpretive Data was last revised on 2018. Eosinophil pct 2.5 % [facility] Comment: Interpretive Data Percent cell count reference ranges are not reported, since discordance with absolute values may lead to misinterpretation of CBC data. Current Interpretive Data was last revised on 2018. Basophil pct 1.2 % [facility] Comment: Interpretive Data Percent cell count reference ranges are not reported, since discordance with absolute values may lead to misinterpretation of CBC data. Current Interpretive Data was last revised on 2018. Blood 02/07/2022 8:30 AM CDT 02/07/2022 9:04 PM CDT Jil Duncan MD LAB BLOOD ORDERABLES Final Result [facility] [address] Department [place] [address] * (ABNORMAL) Gamma GT (02/07/2022 8:30 AM CDT) GGT 82(H) 10 - 50 Units/L [facility] Blood 02/07/2022 8:30 AM CDT 02/07/2022 9:03 PM CDT Jil Duncan MD LAB BLOOD ORDERABLES Final Result Performing Organization Address [facility] Co de Phone Number [facility] [address] [place] [address] * Tacrolimus level trough (02/07/2022 8:30 AM CDT) Tacrolimus trough 10.0 ng/mL [facility] Comment: Interpretive Data Testing performed by liquid chromatography-tandem mass spectrometry. ??Therapeutic concentrations vary depending on type of transplanted organ and time elapsed since transplant. ??Typical trough concentrations range from 5-15 ng/mL. ??This test was developed and its performance characteristics determined by the [facility] consistent with CLIA requirements. ??This test has not been cleared or approved by the [place] Food and Drug administration. ??Current interpretive data last reviewed 2020. Testing performed by: [facility], [address] [place]., [address] Blood 02/07/2022 8:30 AM CDT 02/07/2022 10:33 PM CDT Jil Duncan MD LAB BLOOD ORDERABLES Final Result Performing Organization Address City/[facility]/ZIP Co de Phone Number [facility] [address] [place] [address] * (ABNORMAL) CBC with auto differential (02/07/2022 8:30 AM CDT) WBC 9.1 3.8 - 9.9 K/cumm [facility] Hgb 13.6 13.0 - 17.5 g/dL [facility] Hct 40.9 38.9 - 50.3 % [facility] Plt 155 150 - 400 K/cumm [facility] MPV 10.9 9.1 - 12.3 fL [facility] RBC 3.83(L) 4.30 - 5.80 M/cumm [facility] MCV 106.8(H) 81.3 - 96.4 fL [facility] MCH 35.5(H) 27.1 - 33.3 pg [facility] MCHC 33.3 32.3 - 35.7 g/dL [facility] RDW CV 16.3(H) 11.1 - 14.9 % [facility] RDW SD 64.6(H) 35.7 - 48.1 fL [facility] NRBC abs 0.00 0.00 - 0.01 K/cumm [facility] Blood 02/07/2022 8:30 AM CDT 02/07/2022 9:04 PM CDT Jil Duncan MD LAB BLOOD ORDERABLES Final Result [facility] [address] [place] [address] * (ABNORMAL) Comprehensive metabolic panel (02/07/2022 8:30 AM CDT) Sodium 140 135 - 145 mmol/L [facility] Potassium, pl 4.3 3.3 - 4.9 mmol/L [facility] Chloride 110 97 - 110 mmol/L [facility] CO2 19(L) 22 - 32 mmol/L [facility] Anion gap 11 2 - 15 mmol/L [facility] BUN 13 8 - 25 mg/dL [facility] Creatinine 0.70(L) 0.80 - 1.30 mg/dL [facility] Glucose 81 70 - 199 mg/dL [facility] Comment: [...] interpretive data was last revised 2017. Calcium 9.1 8.5 - 10.3 mg/dL [facility] Bilirubin, total 0.9 0.1 - 1.2 mg/dL [facility] Protein, pl 6.1(L) 6.5 - 8.5 g/dL [facility] Albumin 3.6 3.5 - 5.0 g/dL [facility] Alk phos 262(H) 40 - 130 Units/L [facility] ALT 46 7 - 55 Units/L [facility] AST 59(H) 10 - 50 Units/L [facility] Blood 02/07/2022 8:30 AM CDT 02/07/2022 9:03 PM CDT us Ige Sonido Duncan MD LAB BLOOD ORDERABLES Final Result [facility] [address] Department [place] [address] * (ABNORMAL) Cytomegalovirus (CMV) DNA PCR, quantitative Blood (01/24/2022 8:25 AM CDT) Pathologist [facility] CMV DNA Detected( A) [facility] Comment: Interpretive Data: The quantifiable range of this assay is 34 IUnits/mL to 10,000,000 IUnits/mL (1.53 log IUnits/mL to 7.0 log IUnits/mL). Testing was performed by the NIA 6800 CMV Test ([employer] Testing performed at [facility]. Current interpretive data was last revised on 2021. CMV DNA IU/mL 147 IUnits/mL [facility] CMV DNA log IU/mL 2.17 log IUnits/mL [facility] Blood 01/24/2022 8:25 AM CDT 01/24/2022 1:14 PM CDT us Theodore Gresham MD LAB MICROBIOLOGY - GENERAL ORDERABLES Final Result [facility] [address] [facility] Department [place] [address] * eGFR (01/24/2022 8:25 AM CDT) eGFR >90 90 - 130 mL/min/1. 73 m2 [facility] Comment: Interpretive Data Reference Interval Normal [...] interpretive data was last reviewed 2021. Blood 01/24/2022 8:25 AM CDT 01/24/2022 12:05 PM CDT Theodore Gresham MD LAB BLOOD ORDERABLES Final Result [facility] [address] [facility] Department [place] [address] * (ABNORMAL) Differential, auto (01/24/2022 8:25 AM CDT) Neutrophil abs 2.9 1.7 - 6.5 K/cumm [facility] Imm gran abs 0.0 0.0 - 0.1 K/cumm [facility] Lymphocyte abs 3.7(H) 0.8 - 3.3 K/cumm [facility] Monocyte abs 1.2(H) 0.2 - 0.8 K/cumm [facility] Eosinophil abs 0.2 0.0 - 0.5 K/cumm [facility] Basophil abs 0.1 0.0 - 0.1 K/cumm [facility] Neutrophil pct 35.9 % [facility] Comment: Interpretive Data Percent cell count reference ranges are not reported, since discordance with absolute values may lead to misinterpretation of CBC data. Current Interpretive Data was last revised on 2018. Imm gran pct 0.2 % [facility] Comment: Interpretive Data Percent cell count reference ranges are not reported, since discordance with absolute values may lead to misinterpretation of CBC data. Current Interpretive Data was last revised on 2018. Lymphocyte pct 45.7 % [facility] Comment: Interpretive Data Percent cell count reference ranges are not reported, since discordance with absolute values may lead to misinterpretation of CBC data. Current Interpretive Data was last revised on 2018. Monocyte pct 14.5 % [facility] Comment: Interpretive Data Percent cell count reference ranges are not reported, since discordance with absolute values may lead to misinterpretation of CBC data. Current Interpretive Data was last revised on 2018. Eosinophil pct 2.4 % [facility] Comment: Interpretive Data Percent cell count reference ranges are not reported, since discordance with absolute values may lead to misinterpretation of CBC data. Current Interpretive Data was last revised on 2018. Basophil pct 1.3 % [facility] Comment: Interpretive Data Percent cell count reference ranges are not reported, since discordance with absolute values may lead to misinterpretation of CBC data. Current Interpretive Data was last revised on 2018. Blood 01/24/2022 8:25 AM CDT 01/24/2022 11:57 AM CDT Theodore Gresham MD LAB BLOOD ORDERABLES Final Result Performing Organization Address [facility] de Phone Number [facility] [place] [address] * Tacrolimus level trough (01/24/2022 8:25 AM CDT) [facility] Tacrolimus trough 8.9 ng/mL [facility] Comment: Interpretive Data Testing performed by liquid chromatography-tandem mass spectrometry. ??Therapeutic concentrations vary depending on type of transplanted organ and time elapsed since transplant. ??Typical trough concentrations range from 5-15 ng/mL. ??This test was developed and its performance characteristics determined by the [facility] consistent with CLIA requirements. ??This test has not been cleared or approved by the US Food and Drug administration. ??Current interpretive data last reviewed 2020. Blood 01/24/2022 8:25 AM CDT 01/24/2022 11:58 AM CDT us Theodore Gresham MD LAB BLOOD ORDERABLES Final Result Performing Organization Address [facility] Co de Phone Number [facility] [place] [address] * (ABNORMAL) Gamma GT (01/24/2022 8:25 AM CDT) Pathologist [facility] GGT 87(H) 10 - 50 Units/L [facility] Blood 01/24/2022 8:25 AM CDT 01/24/2022 11:57 AM CDT Theodore Gresham MD LAB BLOOD ORDERABLES Final Result Performing Organization Address [facility] Co de Phone Number [facility] Department [place] [address] * (ABNORMAL) CBC with auto differential (01/24/2022 8:25 AM CDT) [facility] WBC 8.2 3.8 - 9.9 K/cumm [facility] Hgb 13.0 13.0 - 17.5 g/dL [facility] Hct 37.2(L) 38.9 - 50.3 % [facility] Plt 167 150 - 400 K/cumm [facility] MPV 11.0 9.1 - 12.3 fL [facility] RBC 3.55(L) 4.30 - 5.80 M/cumm [facility] MCV 104.8(H) 81.3 - 96.4 fL [facility] MCH 36.6(H) 27.1 - 33.3 pg [facility] MCHC 34.9 32.3 - 35.7 g/dL [facility] RDW CV 17.7(H) 11.1 - 14.9 % [facility] RDW SD 69.0(H) 35.7 - 48.1 fL [facility] NRBC abs 0.00 0.00 - 0.01 K/cumm [facility] Blood 01/24/2022 8:25 AM CDT 01/24/2022 11:57 AM CDT us Theodore Gresham MD LAB BLOOD ORDERABLES Final Result Performing Organization Address City/[facility]/ZIP Co de Phone Number [facility] Department [place] [address] * Glucose, random (Outreach) (01/24/2022 8:25 AM CDT) Pathologist [facility] Glucose 100 70 - 199 mg/dL [facility] Comment: Interpretive Data Fasting glucose >/= [...] interpretive data was last revised 2017. Blood 01/24/2022 8:25 AM CDT 01/24/2022 11:57 AM CDT Theodore Gresham MD LAB BLOOD ORDERABLES Final Result [facility] Department [place] [address] * (ABNORMAL) Comprehensive metabolic panel, without glucose (Outreach) (01/24/2022 8:25 AM CDT) Pathologist [facility] Sodium 141 135 - 145 mmol/L [facility] Potassium, pl 4.3 3.3 - 4.9 mmol/L [facility] Chloride 110 97 - 110 mmol/L [facility] CO2 24 22 - 32 mmol/L [facility] Anion gap 7 2 - 15 mmol/L [facility] BUN 9 8 - 25 mg/dL [facility] Creatinine 0.83 0.80 - 1.30 mg/dL [facility] Calcium 8.6 8.5 - 10.3 mg/dL [facility] Protein, pl 5.8(L) 6.5 - 8.5 g/dL [facility] Albumin 3.6 3.5 - 5.0 g/dL [facility] Bilirubin, total 1.1 0.1 - 1.2 mg/dL [facility] Alk phos 288(H) 40 - 130 Units/L [facility] AST 55(H) 10 - 50 Units/L [facility] ALT 52 7 - 55 Units/L [facility] Blood 01/24/2022 8:25 AM CDT 01/24/2022 11:57 AM CDT us Theodore Gresham MD LAB BLOOD ORDERABLES Final Result [facility] One [facility] Department [place] [address] documented in this encounter Visit Diagnoses Not on filedocumented in this encounter Care Teams Pbx Teacher Relationship Specialty Start Date End Date Guero Colunga DO PCP - General Internal Medicine 03/22/19 04/18/23 Amber Montesinos, SHAILESH Rental Representative Transplant 11/17/19 Jil Duncan MD Consulting Physician Infectious Diseases 01/10/20 Anita Gillespie MD Medical Oncologist/Tool Distributor Medical Oncology 10/07/20 Tabitha Hurley MD [address] [place] [address] Consulting Physician Rheumatology 10/22/21 documented as of this encounter
--- OUTSIDE RECORDS SUMMARY | 2024-10-28 06:13 | XMS_ITS | Encounter Summary ---
Author Organization [facility] Address [address] [place] [address] Phone Care Team Providers Care Senior Solutions Architect Name Role Phone Guero Colunga DO Primary Care Provider [phone] Amber Montesinos RN Unavailable [phone] Jil Duncan MD Unavailable [phone] Anita Gillespie MD Unavailable [phone] Tabitha Hurley MD Unavailable [phone] Encounter Details Date Type Department Care Team (Late st Contact Info) Description 03/06/2022 Orders Only [facility] Infectious Diseases [address] [place] [address] [address] [place] [address] Jil Duncan MD [address] [place] [address] [address] [place] [address] 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HCC) (Primary Dx) [...] on file 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 Gender Identity Not on file Sexual Orientation Straight 08/22/2021 9: 23 AM CDT documented as of this encounter Miscellaneous Notes * Addendum Note - Ana Laura So - 03/06/2022 10:05 AM CDTAddended by: ANA LAURA SO on: 03/13/2022 02:26 PM Modules accepted: Orders documented in this encounter Plan of Treatment Scheduled Procedures Name Priority Associated Diagnoses Date/Ti me COLONOSCOPY Encounter for screening for colorectal cancer in high risk patient Family history of rectal cancer documented as of this encounter Visit Diagnoses Diagnosis 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 documented in this encounter Care Teams Senior Solutions Architect Relationship Specialty Start Date End Date Guero Colunga DO PCP - General Internal Medicine 03/22/19 04/18/23 Amber Montesinos RN Cigar Head Piercer Transplant 11/17/19 Jil Duncan MD Consulting Physician Infectious Diseases 01/10/20 Anita Gillespie MD Medical Oncologist/Nurse Ob Medical Oncology 10/07/20 Tabitha Hurley MD [address] [facility] 14 [place] [address] Consulting Physician Rheumatology 10/22/21 documented as of this encounter
--- OUTSIDE RECORDS SUMMARY | 2024-10-28 06:13 | XMS_ITS | Encounter Summary ---
Author Organization [facility] Address [address] [place] [address] Phone Care Team Providers Care Top Spotter Name Role Phone Guero Colunga DO Primary Care Provider [phone] Amber Montesinos RN Unavailable [phone] Jil Duncan MD Unavailable [phone] Anita Gillespie MD Unavailable [phone] Tabitha Hurley MD Unavailable Encounter Details Date Type Department Care Team (Late st Contact Info) Description 03/09/2022 Orders Only 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 Gender Identity Not on file Sexual Orientation Straight 08/22/2021 9: 23 AM CDT documented as of this encounter Progress Notes * Ny Griffin - 03/09/2022 1:25 PM CDT error documented in this encounter Plan of Treatment Scheduled Procedures Name Priority Associated Diagnoses Date/Ti me COLONOSCOPY Encounter for screening for colorectal cancer in high risk patient Family history of rectal cancer documented as of this encounter Visit Diagnoses Not on filedocumented in this encounter Care Teams Top Spotter Relationship Specialty Start Date End Date Guero Colunga DO PCP - General Internal Medicine 03/22/19 04/18/23 Amber Montesinos, SHAILESH Coding Spec Transplant 11/17/19 Jil Duncan MD Consulting Physician Infectious Diseases 01/10/20 Anita Gillespie MD Medical Oncologist/Auto Collision Repair Instructor Medical Oncology 10/07/20 Tabitha Hurley MD [address] [facility] 14 [place] [address] Consulting Physician Rheumatology 10/22/21 documented as of this encounter
--- OUTSIDE RECORDS SUMMARY | 2024-10-28 06:13 | XMS_ITS | Encounter Summary ---
Author Organization [facility] Address [address] [place] [address] Phone Care Team Providers Care Screen And Cyclone Repairer Name Role Phone Guero Colunga DO Primary Care Provider [phone] Amber Montesinos RN Unavailable [phone] Jil Duncan MD Unavailable [phone] Anita Gillespie MD Unavailable [phone] Tabitha Hurley MD Unavailable [phone] Encounter Details Date Type Department Care Team (Late st Contact Info) Description 01/19/[address] 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 Gender Identity Not on file Sexual Orientation Straight 08/22/2021 9: 23 AM CDT documented as of this encounter Ordered Prescriptions Prescription Sig Dispense Quantity Refills Last Filled Start Date End Date ganciclovir (CYTOVENE) 500 mg injection Infuse 5.7 mL (285 mg total) into a venous catheter every 12 (twelve) hours 01/19/2022 2 letermovir (PREVYMIS) 480 mg tablet Take 1 tablet (480 mg total) by mouth daily 01/19/2022 2 documented in this encounter Plan of Treatment Scheduled Procedures Name Priority Associated Diagnoses Date/Ti me COLONOSCOPY Encounter for screening for colorectal cancer in high risk patient Family history of rectal cancer documented as of this encounter Visit Diagnoses Not on filedocumented in this encounter Discontinued Medications Medication Sig Discontinue Reason Start Date End Da te valGANciclovir (VALCYTE) 450 mg tablet Take 900 mg by mouth 2 (two) times a day Therapy completed 01/19/2022 documented as of this encounter Care Teams Screen And Cyclone Repairer Relationship Specialty Start Date End Date Guero Colunga DO PCP - General Internal Medicine 03/22/19 04/18/23 Amber Montesinos RN District Extension Service Agent Transplant 11/17/19 Jil Duncan MD Consulting Physician Infectious Diseases 01/10/20 Anita Gillespie MD Medical Oncologist/Tax Director Medical Oncology 10/07/20 Tabitha Hurley MD [address] [facility] 14 [place] [address] Consulting Physician Rheumatology 10/22/21 documented as of this encounter
--- OUTSIDE RECORDS SUMMARY | 2024-10-28 06:13 | XMS_ITS | Encounter Summary ---
Author Organization [facility] Address [address] [place] [address] Phone Care Team Providers Care Woods Manager Name Role Phone Guero Colunga DO Primary Care Provider [phone] Amber Montesinos RN Unavailable [phone] Jil Valdez MD Unavailable [phone] Anita Gillespie MD Unavailable [phone] Tabitha Hurley MD Unavailable [phone] Encounter Details Date Type Department Care Team (Late st Contact Info) Description 02/11/2022 8:15 AM CDT Office Visit 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 Gender Identity Not on file Sexual Orientation Straight 08/22/2021 9: 23 AM CDT documented as of this encounter Last Filed Vital Signs Vital Sign Reading Time Taken Comments Blood Pressure 109/64 02/11/2022 8:10 AM CDT Pulse 64 02/11/2022 8:10 AM CDT Temperature 36.6 ??C (97.9 ??F) 02/11/2022 8:10 AM CD T Respiratory Rate 16 02/11/2022 8:10 AM CDT Oxygen Saturation 99% 02/11/2022 8:10 AM CDT Inhaled Oxygen Concentration - - Weight 57.8 kg (127 lb 6.4 oz) 02/11/2022 8:10 AM CDT Height - - Body Mass Index 19.37 2022 9:18 AM CDT documented in this encounter Progress Notes * Almita Cerda MD - 02/11/2022 12:00 AM CDT PATIENT NAME: ADI NICHOLS : 1995 JUSTEN: 02/11/2022 DIAGNOSES: 1. 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 2. 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 3. Bilateral pulmonary emboli diagnosed on 10/19/2017. TREATMENT AND DISEASE COURSE: 1. R-CHOP x 1, 08/25/2017. 2. Dose adjusted EPOCH-R x 5, 09/15/2017 - 12/2017. Post-C2 PET: NC (5PS = 4), CR post C5 3. [...] INTERVAL HISTORY: Mr. Nichols returns to the [facility] for continued follow-up of his history of PTLD and recurrent CMV infection. He was last seen on 11/12/2021. Since that time, he has been doing well. He continues to have recurrent rhinorrhea, sinus congestion, and cough. He follows with ENT and received one course of antibiotics, over the past 3 months, which provided temporary relief lasting one week. He follows closely with Dr. Auguste from infectious disease for CMV viremia and infection. They recently recommended that he stops valganciclovir and he took the last dose yesterday. 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 Review of systems is negative for fever, chills, drenching night sweats, unintentional weight loss, shortness of breath, nausea, emesis, abdominal pain, diarrhea, or rash. PHYSICAL EXAMINATION: General: Well-appearing young man, who is accompanied by his mother. Performance Status: 0. Vital Signs: Weight of 57.8 kg, which is up by 2 kg. Blood pressure 109/64, pulse 64, respirations 16, temperature 36.6, oxygen saturation 99% on room air. Lungs: Clear to auscultation. Nodes: Up to six left mid-posterior cervical lymph nodes, one of which is 1.5 cm and the rest are subcentimeter. Two right posterior cervical lymph nodes, subcentimeter. One left jugulodigastric lymph node, subcentimeter. Two right axillary lymph nodes, one is 1 cm and the other is subcentimeter. Up to six left axillary lymph nodes, largest is 1.5 cm and the rest are 1 cm or less. Three left inguinal lymph nodes, largest is 2 x 1 cm and the other two are subcentimeter. Extremities: No edema. He has a left PICC line that we pulled out today. Skin: No rash or lesions. LABORATORIES: WBC 9.1, ANC 3.4, ALC 3.8, hemoglobin 13.6, platelets 155. Chemistries notable for alkaline phosphatase 262, AST 59, GGT 82. Otherwise, chemistries are normal. LDH is ____. IMPRESSION AND PLAN: 1. History of M-WNI-dlqnpjoe posttransplant lymphoproliferative disorder, Nadine-De La Cruz virus positive, stage EMY, IPI 3 (stage, LDH, extranodal sites). This 27-year-old gentleman is now over 4 years status post 1 cycle of R-CHOP and 5 cycles of dose-adjusted EPOCH-R. He has never had any evidence of recurrence. He has had multiple lymph node biopsies, most recently in October 2021, which showed CMV lymphadenitis. His nodes have slowly improved on valganciclovir, although this was recently stopped by Infectious Disease, as detailed below. We will see him back in 3 months, but he knows to callus in the interim for any questions or concerns. 2. Multiply recurrent sinus infections. The patient has a sinus infection once or twice a month. Hewas most recently treated with a course of antibiotics with transient improvement, lasting one week. He follows up with ENT. 3. Common variable immunodeficiency. The patient remains on home cutaneous immunoglobulin (HyQvia) and will continue this indefinitely. 4. History of liver transplant. The patient remains on tacrolimus 0.5 b.i.d. His LFTs were largely stable today and are thought to be due to CMV. 5. Cytomegalovirus viremia. The patient follows with Dr. Valdez and Dr. Auguste in Infectious Disease. His CMV PCR is closely monitored and the most recent level, on 02/07/2022 was detected at 111, and overall improved from prior. He was recommended to stop valganciclovir and took the last dose yesterday (02/11/2022). He remains at high risk for recurrent CMV infection and the need to resume treatment in the future. 6. Nonspecific inflammatory arthritis. The patient follows intermittently with Dermatology. 7. Healthcare maintenance. The patient had the J&J vaccine on 02/08/2021. He is at high risk for COVID and we discussed this today as well as previously. He remains uninterested in receiving any additional COVID vaccinations. The patient was seen and discussed with Dr. Anita Gillespie, who formulated the plan of care. ELECTRONICALLY SIGNED - 02/13/2022 09:36 AM Almita Cerda M.D. Fellow I have seen and examined the patient and agree with the findings and plan of care as documented by and/or discussed with Almita Cerda M.D.. ELECTRONICALLY SIGNED - 02/14/2022 02:43 PM Anita Gillespie M.D. mandolin repairer Emily Chair in Medical Oncology RS/NB/lw cc: LENO AGUSTIN MD [address] [facility] [address], [place] [address] GUERO COLUNGA DO [address] [place] [address] / JIL VALDEZ M.D. 1 [place] [address] LINDA CHAPA MD [address] [place] [address] [address] [place] [address] / documented in this encounter Miscellaneous Notes * Addendum Note - Juan Jose Miller V. - 02/11/2022 8:15 AM CDTAddended by: JUAN JOSE MILLER V. 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7(L) 13.8 - 17.2 g/dL [facility] Comment:Testing performed by : [facility], [address] [place] [phone] Hct 36.2(L) 40.7 - 50.3 % [facility] Comment:Testing performed by : [address] [address] Plt 155 140 - 440 K/cumm [facility] Comment:Testing performed by : [address] [address] MPV 9.4 6.8 - 10.4 fL [facility] Comment:Testing performed by : [address] [address] RBC 3.61(L) 4.50 - 5.70 M/cumm [facility] Comment:Testing performed by : [address] [address] MCV 100.4(H) 80.0 - 97.6 fL [facility] Comment:Testing performed by : [address] [address] MCH 35.1(H) 26.7 - 33.7 pg [facility] Comment:Testing performed by : [address] [address] MCHC 35.0 32.7 - 35.5 g/dL [facility] Comment:Testing performed by : [address] [address] RDW CV 19.1(H) 11.8 - 14.6 % [facility] Comment:Testing performed by : [address] [address] NRBC abs 0.00 0.00 - 0.01 K/cumm [facility] Comment:Testing performed by : [facility], [address] [place] [phone] Blood 05/13/2022 7:21 AM CDT 05/13/2022 7:27 AM CDT Nancy Butler NP LAB BLOOD ORDERABLES Final Result [facility] Department [place] [address] * (ABNORMAL) Comprehensive metabolic panel (05/13/2022 7:21 AM CDT) Sodium 142 135 - 145 mmol/L [facility] Comment:Testing performed by : [facility], [address] [place] [phone] Potassium, pl 4.4 3.3 - 4.9 mmol/L [facility] Comment:Testing performed by : [facility], [address] [place] [phone] Chloride 108 97 - 110 mmol/L [facility] Comment:Testing performed by : [facility], [address] [place] [phone] CO2 27 22 - 32 mmol/L [facility] Comment:Testing performed by : [facility], [address] [place] [phone] Anion gap 7 2 - 15 mmol/L [facility] Comment:Testing performed by : [facility], [address] [place] [phone] BUN 14 8 - 25 mg/dL [facility] Comment:Testing performed by : [facility], [address] [place] [phone] Creatinine 0.90 0.80 - 1.30 mg/dL [facility] Comment:Testing performed by : [facility], [address] [place] [phone] Glucose 93 70 - 199 mg/dL [facility] Comment: Interpretive Data Fasting glucose >/= 126 [...] was last revised 2017. Testing performed by: [facility], [address] [place] [phone] Calcium 9.0 8.5 - 10.3 mg/dL [facility] Comment:Testing performed by : [address] [address] Bilirubin, total 2.1(H) 0.1 - 1.2 mg/dL [facility] Comment:Testing performed by : [address] [address] Protein, pl 6.0(L) 6.5 - 8.5 g/dL [facility] Comment:Testing performed by : [facility], [address] [place] [phone] Albumin 3.8 3.5 - 5.0 g/dL [facility] Comment:Testing performed by : [address] [address] Alk phos 338(H) 40 - 130 Units/L [facility] Comment:Testing performed by : [address] [address] ALT 81(H) 7 - 55 Units/L [facility] Comment:Testing performed by : [address] [address] AST 111(H) 10 - 50 Units/L [facility] Comment:Testing performed by : [address] [address] Blood 05/13/2022 7:21 AM CDT 05/13/2022 7:27 AM CDT Nancy Butler NP LAB BLOOD ORDERABLES Final Result Performing Organization Address [facility] Co de Phone Number [facility] [place] [address] * (ABNORMAL) Lactate dehydrogenase (LD) (05/13/2022 7:21 AM CDT) Lactate dehydrogenase (LDH) 314(H) 100 - 250 Units/L [facility] Comment:Testing performed by : [facility], [address] [place] [phone] Blood 05/13/2022 7:21 AM CDT 05/13/2022 7:27 AM CDT Nancy Butler NP LAB BLOOD ORDERABLES Final Result Performing Organization Address 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 Indications: prevent clot from blocking an intravenous catheter Therapy completed 02/11/2022 0.9 % sodium chloride ([facility] sodium chloride 0.9%) injectionIndications:l ine patency Infuse 10 mL into a venous catheter as needed for line care. Indications: line patency Therapy completed 02/11/2022 documented as of this encounter Orders Appointment Requests Count Last Ordered Date Fi rst Ordered Date ONCBCN CLINIC APPOINTMENT REQUEST 2 022 02/11/2022 ONCBCN LAB APPOINTMENT 1 05/13/2022 documented in this encounter Care Teams Woods Manager Relationship Specialty Start Date End Date Guero Colunga DO PCP - General Internal Medicine 03/22/19 04/18/23 Amber Montesinos, SHAILESH [facility] [employer] [employer] Transplant 11/17/19 Jil Valdez MD Consulting Physician Infectious Diseases 01/10/20 Anita Gillespie MD Medical Oncologist/Outreach Nurse Medical Oncology 10/07/20 Tabitha Hurley MD [address] [facility] [address] [place] [address] Consulting Physician Rheumatology 10/22/21 documented as of this encounter
--- OUTSIDE RECORDS SUMMARY | 2024-10-28 06:13 | XMS_ITS | Encounter Summary ---
Author Organization [facility] Address [address] [place] [address] Phone Care Team Providers Care Reinsurance Clerk Name Role Phone Guero Colunga DO Primary Care Provider [phone] Amber Montesinos RN Unavailable [phone] Jil Duncan MD Unavailable [phone] Anita Gillespie MD Unavailable [phone] Tabitha Hurley MD Unavailable [phone] Encounter Details Date Type Department Care Team (Late st Contact Info) Description 03/09/2022 Documentation [facility] Infectious Diseases [address] [place] [address] Flor Rae, [facility] Social History Tobacco Use [...] on file 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 Per rep, patientwas enrolled on 12.01.2021 and will remain enrolled through the end of this calendar year. documented in this encounter Plan of Treatment Scheduled Procedures Name Priority Associated Diagnoses Date/Ti me COLONOSCOPY Encounter for screening for colorectal cancer in high risk patient Family history of rectal cancer documented as of this encounter Visit Diagnoses Not on filedocumented in this encounter Care Teams Reinsurance Clerk Relationship Specialty Start Date End Date Guero Colunga DO PCP - General Internal Medicine 03/22/19 04/18/23 Amber Montesinos, SHAILESH Structural Worker Transplant 11/17/19 Jil Duncan MD Consulting Physician Infectious Diseases 01/10/20 Anita Gillespie MD Medical Oncologist/Curriculum Advisory Teacher Medical Oncology 10/07/20 Tabitha Hurley MD [address] [facility] 14 [place] [address] Consulting Physician Rheumatology 10/22/21 documented as of this encounter
--- OUTSIDE RECORDS SUMMARY | 2024-10-28 06:13 | XMS_ITS | Encounter Summary ---
Author Organization [facility] Address [address] [place] [address] Phone Care Team Providers Care Associate Software Engineer Name Role Phone Guero Colunga Primary Care Provider [phone] Amber Montesinos RN Unavailable [phone] Jil Duncan MD Unavailable [phone] Anita Gillespie MD Unavailable [phone] Tabitha Hurley MD Unavailable [phone] Reason for Visit * Auth/Cert Specialty Diagnoses / Procedures Referred By Contac t Referred To Contact Referral ID Status Reason Start Date Expiration Date Visits Re quested Visits Authorized [id number] 1 1 Encounter Details Date Type Department Care Team (Late st Contact Info) Description 01/24/2022 12:00 PM CDT Home Care Visit [facility] [address] [address] [address] [place] [address] Juanita Martin RN SN HOME VISIT Social [...] on file 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 Gender Identity Not on file Sexual Orientation Straight 08/22/2021 9: 23 AM CDT documented as of this encounter Last Filed Vital Signs Vital Sign Reading Time Taken Comments Blood Pressure 100/70 01/24/2022 8:45 AM CDT Pulse 74 01/24/2022 8:45 AM CDT Temperature 36.9 ??C (98.4 ??F) 01/24/2022 8:45 AM CD T Respiratory Rate 16 01/24/2022 8:45 AM CDT Oxygen Saturation 98% 01/24/2022 8:45 AM CDT Inhaled Oxygen Concentration - - Weight - - Height 172.7 cm (5' 8 ) 01/24/2022 8:45 AM CDT Body Mass Index - - documented [...] Dose Rate Site 0.9 % sodium chloride ([facility] sodium chloride 0.9%) injection 10 mL, intravenous, As needed, line care, Starting on 01/24/22 at 0854, Indications: line patencyIndications:line patency Given 01/24/2022 8:20 AM CDT 50 mL heparin lock flush, porcine, 10 unit/mL solution 5 mL, intravenous, As needed, line patency, Starting on 01/24/22 at 0855, Indications: Maintain Patency of Indwelling Vascular CatheterIndications:Maintain Patency of Indwelling Vascular Catheter Given 01/24/2022 8:20 AM CDT 10 mL documented in this encounter Home Health Visit - Care Plan Visit Details Visit Type -SN Home Visit Discipline -Snf Problems Problem Description Start Date Status Goals Interventions Medications Disciplines: Snf Management of IV Medications 12/20/2021 Active - 1 problem intervention scheduled/documen mohsen in this visit Need to Collect Specimen Sample Disciplines: Snf Need to collect specimen sample 12/20/2021 Active - 2 problem interventions scheduled/documen mohsen in this visit Safety concerns Disciplines: Snf Safety needs related to infusion administration 12/20/2021 Active - 1 problem intervention scheduled/documen mohsen in this visit Learning/Teachin g Needs - IV Therapy Disciplines: Snf Teaching and learning needs for performing home IV therapy 12/20/2021 Active - 6 problem interventions scheduled/documen mohsen in this visit Monitor patient's vital signs every home health visit Disciplines: SN, PT, OT, IS SUPPORT ANALYST, ENVIRONMENTAL HEALTH TECHNICIAN, Skilled Disciplines Monitor patient's vital signs every [...] visit during episode of care Description: Home programmable logic controller assembler to measure vital signs during every home [...] storage, drug allergies, and potential complications. Problem:Medications Completed Medications reviewed. Patient expressed appropriate understanding. Lab draw Description: Labs Weekly CBC, CMP, CMV PCR Tacrolimus trough and GGT Please fax a copy of all lab results to [facility] at [phone] Fax also to Liver Transplant [phone] Problem:Need to Collect Specimen Sample Completed CBC/diff, CMP, CMV PCR, GGT, and total bilirubin obtained via PICC per protocol and specimen to laboratory. Draw Labs Description: Add Directr Bilirubin to labs on 01/24/[address] Theodore Gresham/Amber Vargas RN/Rosemarie CASH Problem:Need to Collect Specimen Sample Scheduled Instruct on IV complications Description: Instruct patient/caregiver on how to manage breaks in line, signs/symptoms of complications, who to contact for complications and how to contact the nurse, MD and infusion service Problem:Safety concerns Completed Patient expressed appropriate understanding of complications and when to call HH Agency and MD/Transplnt office. Instruct on IV supplies Description: Instruct patient/caregiver in how to gather supplies, how to restock IV supplies in the home, prepare supplies, administer IV medication and disconnect IV medication, inspecting solution and supplies before infusing, and waste disposal. Problem:Learning/Teac kofi Needs - IV Therapy Completed Patient expressed appropriate understanding of taking care of supplies in the home. Dressing change Description: Skilled Nurse to instruct [...] applied. New claves applied. Connections taped securely. IV Access Care/Maintenance Description: Skilled Nurse to [...] kofi Needs - IV Therapy Completed Patient expressed appropriate understanding of maintaining PICC line. Instruct Infection Prevention Description: Instruct patient/caregiver in [...] home. documented in this encounter Care Teams Associate Software Engineer Relationship Specialty Start Date End Date Guero Colunga DO PCP - General Internal Medicine 03/22/19 04/18/23 Amber Montesinos RN Gang Pusher Transplant 11/17/19 Jil Duncan MD Consulting Physician Infectious Diseases 01/10/20 Anita Gillespie MD Medical Oncologist/Certified Home Health Aide Medical Oncology 10/07/20 Tabitha Hurley MD [address] [facility] 14 [place] [address] Consulting Physician Rheumatology 10/22/21 documented as of this encounter
--- OUTSIDE RECORDS SUMMARY | 2024-10-28 06:13 | XMS_ITS | Encounter Summary ---
Author Organization [facility] Address [address] [place] [address] Phone Care Team Providers Care Compensator Name Role Phone Guero Colunga DO Primary Care Provider [phone] Amber Montesinos RN Unavailable [phone] Jil Duncan MD Unavailable [phone] Anita Gillespie MD Unavailable [phone] Tabitha Hurley MD Unavailable [phone] Encounter Details Date Type Department Care Team (Late st Contact Info) Description 03/02/[address] 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 ----- Message from Beka Nichols sent at 03/02/2022 2:33 PM CDT ----- Regarding: SINUS AND EAR INFECTION [facility] in [facility] and Thank You. Beka Nichols Jacqueline, RMA [facility] in [facility] and Thank You. ?? SINUS AND EAR INFECTION Beka Nichols You 1 hour ago (2:33 PM) [facility] in [facility] and Thank You. You Beka Nichols 1 hour ago (2:31 PM) [facility] Dr. Gastelum said the medication is probably still working, but you just got a sinus infection since we are getting into allergy season. She is wanting you to continue the sinus rinse and she will send in an antibiotic. I have several listed in your chart. If you can let me know where you want the antibiotic sent I will take care of it. ?? Beka Nichols, Massiel Mesa MD 4 hours ago (11:04 AM) So the medication sinus rinse seems not to be working. I have developed another sinus and ear infection plus a cough since , seems to be getting worse over the weekend. I can be reached at [phone], if you need to talk to me. documented in this encounter Plan of Treatment Scheduled Procedures Name Priority Associated Diagnoses Date/Ti me COLONOSCOPY Encounter for screening for colorectal cancer in high risk patient Family history of rectal cancer documented as of this encounter Visit Diagnoses Not on filedocumented in this encounter Care Teams Compensator Relationship Specialty Start Date End Date Cristine Guero PCP - General Internal Medicine 03/22/19 04/18/23 Amber Montesinos, SHAILESH Contact Finger Assembler Transplant 11/17/19 Jil Duncan MD Consulting Physician Infectious Diseases 01/10/20 Anita Gillespie MD Medical Oncologist/Product Marketing Manager Medical Oncology 10/07/20 Tabitha Hurley MD [address] [facility] 14 [place] [address] Consulting Physician Rheumatology 10/22/21 documented as of this encounter
--- OUTSIDE RECORDS SUMMARY | 2024-10-28 06:13 | XMS_ITS | Encounter Summary ---
Author Organization [facility] Address [address] [place] [address] Phone Care Team Providers Care Steam Trap Worker Name Role Phone Guero Colunga DO Primary Care Provider [phone] Amber Montesinos RN Unavailable [phone] Jil Duncan MD Unavailable [phone] Anita Gillespie MD Unavailable [phone] Tabitha Hurley MD Unavailable [phone] Encounter Details Date Type Department Care Team (Latest Contact Info) Description 02/11/2022 7:30 AM CDT Clinical Support [facility] Oncology [address] [facility] Advanced 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 Gender Identity Not on file Sexual Orientation Straight 08/22/2021 9: 23 AM CDT documented as of this encounter Plan of Treatment Scheduled Procedures Name Priority Associated Diagnoses Date/Ti me COLONOSCOPY Encounter for screening for colorectal cancer in high risk patient Family history of rectal cancer documented as of this encounter Procedures Procedure Name Priority Date/Time Associated Diagnosis Comments EGFR Routine 02/11/2022 8:02 AM CDT 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 73 m2 [facility] Comment: Interpretive Data Reference Interval Normal [...] was last reviewed 2021. Testing performed by: [facility], [address] [place] [phone] Blood 02/11/2022 8:02 AM CDT 02/11/2022 8:02 AM CDT Anita Gillespie MD LAB BLOOD ORDERABLES Final Result [facility] [place] [address] * (ABNORMAL) Differential, auto (02/11/2022 8:02 AM CDT) Neutrophil abs 3.3 1.8 - 6.6 K/cumm [facility] Comment:Testing performed by : [facility], [address] [place] [phone] Lymphocyte abs 3.0 1.2 - 3.3 K/cumm [facility] Comment:Testing performed by : [facility], [address] [place] [phone] Monocyte abs 1.4(H) 0.2 - 1.2 K/cumm [facility] Comment:Testing performed by : [facility], [address] [place] [phone] Eosinophil abs 0.2 0.0 - 0.5 K/cumm [facility] Comment:Testing performed by : [facility], [address] [place] [phone] Basophil abs 0.1 0.0 - 0.2 K/cumm [facility] Comment:Testing performed by : [facility], [address] [place] [phone] Neutrophil pct 41.3 % [facility] Comment: Interpretive Data Percent cell count reference ranges are not reported, since discordance with absolute values may lead to misinterpretation of CBC data. Current Interpretive Data was last revised on 2018. Testing performed by: [facility], [address] [place] [phone] Lymphocyte pct 37.4 % [facility] Comment: Interpretive Data Percent cell count reference ranges are not reported, since discordance with absolute values may lead to misinterpretation of CBC data. Current Interpretive Data was last revised on 2018. Testing performed by: [facility], [address] [place] [phone] Monocyte pct 17.9 % [facility] Comment:Testing performed by : [facility], [address] [place] [phone] Eosinophil pct 2.5 % [facility] Comment:Testing performed by : [facility], [address] [place] [phone] Basophil pct 0.9 % [facility] Comment:Testing performed by : [facility], [address] [place] [phone] Blood 02/11/2022 8:02 AM CDT 02/11/2022 8:02 AM CDT Anita Gillespie MD LAB BLOOD ORDERABLES Final Result [facility] [place] [address] * (ABNORMAL) CBC with auto differential (02/11/2022 8:02 AM CDT) WBC 7.9 3.8 - 9.8 K/cumm [facility] Comment:Testing performed by : [facility], [address] [place] [phone] Hgb 13.3(L) 13.8 - 17.2 g/dL [facility] Comment:Testing performed by : [facility], [address] [place], [place] [phone] Hct 38.6(L) 40.7 - 50.3 % [facility] Comment:Testing performed by : [facility], [address] [place], [place] [phone] Plt 140 140 - 440 K/cumm [facility] Comment:Testing performed by : [facility], [address] [place], [place] [phone] MPV 8.8 6.8 - 10.4 fL [facility] Comment:Testing performed by : [place] [address] RBC 3.60(L) 4.50 - 5.70 M/cumm [facility] Comment:Testing performed by : [place] [address] MCV 107.4(H) 80.0 - 97.6 fL [facility] Comment:Testing performed by : [facility], [address] [place], [place] [phone] MCH 37.1(H) 26.7 - 33.7 pg [facility] Comment: Result consistent with previously reported values. Testing performed by: [place] [address] MCHC 34.6 32.7 - 35.5 g/dL [facility] Comment:Testing performed by : [place] [address] RDW CV 16.1(H) 11.8 - 14.6 % [facility] Comment:Testing performed by : [place] [phone] NRBC abs 0.00 0.00 - 0.01 K/cumm [facility] Comment:Testing performed by : [place] [address] Blood 02/11/2022 8:02 AM CDT 02/11/2022 8:02 AM CDT Anita Gillespie MD LAB BLOOD ORDERABLES Final Result [facility] [place] [address] * (ABNORMAL) Comprehensive metabolic panel (02/11/2022 8:02 AM CDT) Sodium 140 135 - 145 mmol/L [facility] Comment:Testing performed by : [facility], [address] [place] [phone] Potassium, pl 4.2 3.3 - 4.9 mmol/L [facility] Comment:Testing performed by : [facility], [address] [place] [phone] Chloride 112(H) 97 - 110 mmol/L [facility] Comment:Testing performed by : [facility], [address] [place] [phone] CO2 22 22 - 32 mmol/L [facility] Comment:Testing performed by : [facility], [address] [place] [phone] Anion gap 6 2 - 15 mmol/L [facility] Comment:Testing performed by : [facility], [address] [place] [phone] BUN 8 8 - 25 mg/dL [facility] Comment:Testing performed by : [facility], [address] [place] [phone] Creatinine 0.62(L) 0.80 - 1.30 mg/dL [facility] Comment:Testing performed by : [facility], [address] [place] [phone] Glucose 96 70 - 199 mg/dL [facility] Comment: Interpretive Data Fasting glucose >/= [...] was last revised 2017. Testing performed by: [facility], [address] [place] [phone] Calcium 8.5 8.5 - 10.3 mg/dL [facility] Comment:Testing performed by : [facility], [address] [place] [phone] Bilirubin, total 1.2 0.1 - 1.2 mg/dL [facility] Comment:Testing performed by : [facility], [address] [place] [phone] Protein, pl 5.7(L) 6.5 - 8.5 g/dL [facility] Comment:Testing performed by : [facility], [address] [place] [phone] Albumin 3.5 3.5 - 5.0 g/dL [facility] Comment:Testing performed by : [facility], [address] [place] [phone] Alk phos 296(H) 40 - 130 Units/L [facility] Comment:Testing performed by : [facility], [address] [place] [phone] ALT 38 7 - 55 Units/L [facility] Comment:Testing performed by : [facility], [address] [place] [phone] AST 44 10 - 50 Units/L [facility] Comment:Testing performed by : [facility], [address] [place] [phone] Blood 02/11/2022 8:02 AM CDT 02/11/2022 8:02 AM CDT us Anita Gillespie MD LAB BLOOD ORDERABLES Final Result [facility] Department of Laboratories [place], [place] [id number] * Lactate dehydrogenase (LD) (02/11/2022 8:02 AM CDT) Lactate dehydrogenase (LDH) 233 100 - 250 Units/L [facility] Comment:Testing performed by : [facility], [address] [place] [phone] Blood 02/11/2022 8:02 AM CDT 02/11/2022 8:02 AM CDT Anita Gillespie MD LAB BLOOD ORDERABLES Final Result [facility] [place] [address] documented in this encounter Visit Diagnoses Diagnosis 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 documented in this encounter Orders Medications Ordered That John ht Not Have Been Administered Count Last Ordered Date First Ordered Date heparin 100 unit/mL injection 500 Units 1 0 02/11/2022 sodium chloride 0.9% flush 10 mL 1 02/12/20 22 Appointment Requests Count Last Ordered Date Fi rst Ordered Date ONCBCN LAB APPOINTMENT 1 02/11/2022 documented in this encounter Care Teams Steam Trap Worker Relationship Specialty Start Date End Date Guero Colunga DO PCP - General Internal Medicine 03/22/19 04/18/23 Amber Montesinos, RN Draw Furnace Tender Transplant 11/17/19 Jil Duncan MD Consulting Physician Infectious Diseases 01/10/20 Anita Gillespie MD Medical Oncologist/Arabic Translator Medical Oncology 10/07/20 Tabitha Hurley MD [address] [facility] [address] [place] [address] Consulting Physician Rheumatology 10/22/21 documented as of this encounter
--- OUTSIDE RECORDS SUMMARY | 2024-10-28 06:13 | XMS_ITS | Encounter Summary ---
Author Organization [facility] Address [address] [place] [address] Phone Care Team Providers Care Chair Frame Builder Name Role Phone Guero Colunga Primary Care Provider [phone] Amber Montesinos RN Unavailable [phone] Jil Duncan MD Unavailable [phone] Anita Gillespie MD Unavailable [phone] Tabitha Hurley MD Unavailable [phone] Reason for Visit * Auth/Cert Specialty Diagnoses / Procedures Referred By Contac t Referred To Contact Referral ID Status Reason Start Date Expiration Date Visits Re quested Visits Authorized [id number] 1 1 Encounter Details Date Type Department Care Team (Latest Contact Info) Description 02/11/2022 9:00 AM CDT Home Care Visit [facility] [place] [address] [address] [place] [address] Parish Vyas, SHAILESH SN NON OASIS DISCHARGE Social History Tobacco [...] on file 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 Gender Identity Not on file Sexual Orientation Straight 08/22/2021 9: 23 AM CDT documented as of this encounter Plan of Treatment Scheduled Procedures Name Priority Associated Diagnoses Date/Ti ia COLONOSCOPY Encounter for screening for colorectal cancer in high risk patient Family history of rectal cancer documented as of this encounter Visit Diagnoses Not on filedocumented in this encounter Home Health Visit - Care Plan Visit Details Visit Type -SN Non-OASIS Dis charge Discipline -Mcfp Problems Problem Description Start Date Status Goals Interventions Medications Disciplines: Mcfp Management of IV Medications 12/20/2021 Active - 1 problem intervention scheduled/documen mohsen in this visit Need to Collect Specimen Sample Disciplines: Mcfp Need to collect specimen sample 12/20/2021 Active - 1 problem intervention scheduled/documen mohsen in this visit Safety concerns Disciplines: Mcfp Safety needs related to infusion administration 12/20/2021 Active - 1 problem intervention scheduled/documen mohsen in this visit Learning/Teachin g Needs - IV Therapy Disciplines: Mcfp Teaching and learning needs for performing home IV therapy 12/20/2021 Active - 6 problem interventions scheduled/documen mohsne in this visit Monitor patient's vital signs every home health visit Disciplines: SN, PT, OT, ORE MINER BLASTING, AC/DC REWINDER, Skilled Disciplines Monitor patient's vital signs every [...] visit during episode of care Description: Home dock pumper to measure vital signs during every home [...] when to notify HH nurse and/or physician. Problem:Learning/Teaching Needs - IV Therapy Scheduled IV Administration Description: Skilled Nurse to instruct patient/caregiver on how to properly administer medication saline and heparin. Skilled Nurse to instruct patient/caregiver to administer IV medication as ordered including saline and heparin flushes. Reason for Therapy: IV Gancyclovir. Problem:Learning/Teaching Needs - IV Therapy Scheduled Dressing change Description: Skilled Nurse to instruct patient/caregiver on dressing change frequency. Weekly IV site dressing changes to be performed if no issues. Securement device to be used with appropriate lines. Skilled Nurse to instruct patient/caregiver on the purpose of doing measurements of line migration and arm circumference weekly and PRN. Type of line: PICC Problem:Learning/Teaching Needs - IV Therapy Scheduled IV [...] protocol. Problem:Learning/Teaching Needs - IV Therapy Scheduled Monitor Vital [...] - Actions and Narratives Actions PICC line pulled by the Onco logy office during his visit today. Orders to DC noted. Will discharge at this time. Pt tolerated well. documented in this encounter Care Teams Chair Frame Builder Relationship Specialty Start Date End Date Guero Colunga DO PCP - General Internal Medicine 03/22/19 04/18/23 Amber Montesinos RN Molding Associate Transplant 11/17/19 Jil Duncan MD Consulting Physician Infectious Diseases 01/10/20 Anita Gillespie MD Medical Oncologist/Laboratory Administrative Director Medical Oncology 10/07/20 Tabitha Hurley MD [facility] [address] [facility] [address] [place] [address] Consulting Physician Rheumatology 10/22/21 documented as of this encounter
--- OUTSIDE RECORDS SUMMARY | 2024-10-28 06:14 | XMS_ITS | Encounter Summary ---
Author Organization [facility] Address [address] [place] [address] Phone Care Team Providers Care Brewing Director Name Role Phone Guero Colunga Primary Care Provider [phone] Amber Montesinos RN Unavailable [phone] Jil Duncan MD Unavailable [phone] Anita Gillespie MD Unavailable [phone] Tabitha Hurley MD Unavailable [phone] Reason for Visit * Auth/Cert Specialty Diagnoses / Procedures Referred By Contac t Referred To Contact Referral ID Status Reason Start Date Expiration Date Visits Re quested Visits Authorized [id number] 1 1 Encounter Details Date Type Department Care Team (Late st Contact Info) Description 12/23/2021 Home Care Visit [facility] Home Health - [address] [place] [address] Shanelle Buchanan, TANNING DRUM OPERATOR SCREENING CASE COMMUNICATION Social History Tobacco Use Types [...] file 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 Gender Identity Not on file Sexual Orientation Straight 08/22/2021 9: 23 AM CDT documented as of this encounter Plan of Treatment Scheduled Procedures Name Priority Associated Diagnoses Date/Ti me COLONOSCOPY Encounter for screening for colorectal cancer in high risk patient Family history of rectal cancer documented as of this encounter Visit Diagnoses Not on filedocumented in this encounter Care Teams Brewing Director Relationship Specialty Start Date End Date Guero Colunga DO PCP - General Internal Medicine 03/22/19 04/18/23 Amber Montesinos, SHAILESH Supervisor Cloth Winding Transplant 11/17/19 Jil Duncan MD Consulting Physician Infectious Diseases 01/10/20 Anita Gillespie MD Medical Oncologist/Employee Relations Advisor Medical Oncology 10/07/20 Tabitha Hurley MD [address] [facility] [address] [place] [address] Consulting Physician Rheumatology 10/22/21 documented as of this encounter
--- OUTSIDE RECORDS SUMMARY | 2024-10-28 06:14 | XMS_ITS | Encounter Summary ---
Author Organization [facility] Home [facility] es Address [address] [place] [address] Phone Care Team Providers Care Acquisitions Analyst Name Role Phone Guero Colunga Primary Care Provider [phone] Amber Montesinos RN Unavailable [phone] Jil Duncan MD Unavailable [phone] Anita Gillespie MD Unavailable [phone] Tabitha Hurley MD Unavailable [phone] Reason for Visit * Auth/Cert Specialty Diagnoses / Procedures Referred By Contac t Referred To Contact Referral ID Status Reason Start Date Expiration Date Visits Re quested Visits Authorized [id number] 1 1 Encounter Details Date Type Department Care Team (Late st Contact Info) Description 12/23/2021 5:00 PM CUTTER GRINDER Home Care Visit [facility] [address] [address] [address] [place] [address] Shanelle Buchanan, SHAILESH SN HOME VISIT Social History Tobacco [...] on file Legal Sex Male 6:28 AM CUTTER GRINDER Gender Identity Not on file Sexual Orientation Straight 08/22/2021 9: 23 AM CDT documented as of this encounter Last Filed Vital Signs Vital Sign Reading Time Taken Comments Blood Pressure 100/54 12/23/2021 5:30 PM CUTTER GRINDER Pulse 90 12/23/2021 5:30 PM CUTTER GRINDER Temperature 37.4 ??C (99.3 ??F) 12/23/2021 5:30 PM CS T Respiratory Rate 16 12/23/2021 5:30 PM CUTTER GRINDER Oxygen Saturation 99% 12/23/2021 5:30 PM CUTTER GRINDER Inhaled Oxygen Concentration - - Weight - [...] Dose Rate Site 0.9 % sodium chloride ([facility] sodium chloride 0.9%) injection 10 mL, intravenous, As needed, line care, Starting on Wed12/23/21 at 2053, Indications: line patencyIndications:line patency Given 12/23/2021 5:30 PM CUTTER GRINDER 20 mL heparin lock flush, porcine, 10 unit/mL solution 5 mL, intravenous, As needed, line patency, Starting on Wed12/23/21 at 2054, Indications: Maintain Patency of Indwelling Vascular CatheterIndications:Maintain Patency of Indwelling Vascular Catheter Given 12/23/2021 5:30 PM CUTTER GRINDER 10 mL documented in this encounter Home Health Visit - Care Plan Visit Details Visit Type -SN Home Visit Discipline -Long-Term Problems Problem Description Start Date Status Goals Interventions Medications Disciplines: Long-Term Management of IV Medications 12/20/2021 Active - 1 problem intervention scheduled/documen mohsen in this visit Safety concerns Disciplines: Long-Term Safety needs related to infusion administration 12/20/2021 Active - 1 problem intervention scheduled/documen mohsen in this visit Learning/Teachin g Needs - IV Therapy Disciplines: Long-Term Teaching and learning needs for performing home IV therapy 12/20/2021 Active - 6 problem interventions scheduled/documen mohsen in this visit Monitor patient's vital signs every home health visit Disciplines: SN, PT, OT, GOLF SALES ASSOCIATE, DERRICK BUILDER, Skilled Disciplines Monitor patient's vital signs every [...] visit during episode of care Description: Home detective automobile section to measure vital signs during every home [...] drug allergies, and potential complications. Problem:Medications Completed Instruct on IV complications Description: [...] and supplies before infusing, and waste disposal. Problem:Learning/Teach ing Needs - IV Therapy Completed Instruct Infection Prevention Description: Instruct patient/caregiver in strategies to prevent infection. Instruct patient/caregiver on how to recognize signs and symptoms of infection and when to notify HH nurse and/or physician. Problem:Learning/Teach ing Needs - IV Therapy Completed IV Administration Description: Skilled Nurse to instruct patient/caregiver on how to properly administer medication saline and heparin. Skilled Nurse to instruct patient/caregiver to administer IV medication as ordered including saline and heparin flushes. Reason for Therapy: IV Gancyclovir. Problem:Learning/Teach ing Needs - IV Therapy Completed Dressing change Description: Skilled Nurse to instruct patient/caregiver on dressing change frequency. Weekly IV site dressing changes to be performed if no issues. Securement device to be used with appropriate lines. Skilled Nurse to instruct patient/caregiver on the purpose of doing measurements of line migration and arm circumference weekly and PRN. Type of line: PICC Problem:Learning/Teach ing Needs - IV Therapy Completed PICC Line dressing change completed with sterile dressing kit. No complications, flushes easily with blood return. IV Access Care/Maintenance Description: Skilled Nurse to [...] of each line upon completion of infusion/flushes. Problem:Learning/Teach ing Needs - IV Therapy Completed Instruct on IV flush Description: Instruct patient/caregiver in how to perform flushing of IV line according to MD orders or protocol. Problem:Learning/Teach ing Needs - IV Therapy Completed Monitor Vital Signs Description: Monitor blood [...] Problem:Infection Prevention Goal:Verbalize signs of infection Completed Educate Family on Infection Prevention Description: Instructed family on signs and symptoms of infection IE: fever, odor, change in color, increased amount of drainage, purulent drainage, warmth. Problem:Infection Prevention Goal:Verbalize signs of infection Completed Instruct Fall Prevention Description: Instruct patient/caregiver in methods to prevent falls Problem:Safety concerns Goal:Demonstrate use of safety precautions Completed Assess safety Description: Assess patient safety Problem:Safety concerns Goal:Demonstrate use of safety precautions Completed documented in this encounter Home Health Visit - Actions and Narratives Actions line care, assessment documented in this encounter Care Teams Acquisitions Analyst Relationship Specialty Start Date End Date Guero Colunga DO PCP - General Internal Medicine 03/22/19 04/18/23 Amber Montesinos, RN Staff Developer Transplant 11/17/19 Jil Duncan MD Consulting Physician Infectious Diseases 01/10/20 Anita Gillespie MD Medical Oncologist/Pc Maintenance Technician Medical Oncology 10/07/20 Tabitha Hurley MD [address] [facility] 14 [place] [address] Consulting Physician Rheumatology 10/22/21 documented as of this encounter
--- OUTSIDE RECORDS SUMMARY | 2024-10-28 06:14 | XMS_ITS | Encounter Summary ---
Author Organization [facility] Address [address] [place] [address] Phone Care Team Providers Care First Responder Name Role Phone Guero Colunga DO Primary Care Provider Amber Montesinos RN Unavailable [phone] Jil Duncan MD Unavailable [phone] Anita Gillespie MD Unavailable [phone] Tabitha Hurley MD Unavailable [phone] Encounter Details Date Type Department Care Team (Late st Contact Info) Description 01/02/2022 Orders Only [facility] ENT [address] [facility] Medical Office [address] [place] [phone] Massiel Gastelum MD [address] [facility] [address] [place] [address] Social History Tobacco Use Types Packs/Day Years [...] on file Legal Sex Male 6:28 AM LURER Gender Identity Not on file Sexual Orientation Straight 08/22/2021 9: 23 AM CDT documented as of this encounter Ordered Prescriptions Prescription Sig Dispense Quantity Refills Last Filled Start Date End Date sulfamethoxazole- trimethoprim (Bactrim DS) 800-160 mg per tablet Take 1 tablet (160 mg of trimethoprim total) by mouth 2 (two) times a day for 10 days 20 tablet 01/02/2022 documented in this encounter Plan of Treatment Scheduled Procedures Name Priority Associated Diagnoses Date/Ti me COLONOSCOPY Encounter for screening for colorectal cancer in high risk patient Family history of rectal cancer documented as of this encounter Visit Diagnoses Not on filedocumented in this encounter Care Teams First Responder Relationship Specialty Start Date End Date Guero Colunga DO PCP - General Internal Medicine 03/22/19 04/18/23 Amber Montesinos, SHAILESH Charging Crane Operator Transplant 11/17/19 Jil Duncan MD Consulting Physician Infectious Diseases 01/10/20 Anita Gillespie MD Medical Oncologist/Filenet Admin Medical Oncology 10/07/20 Tabitha Hurley MD [address] [facility] 14 [place] [address] Consulting Physician Rheumatology 10/22/21 documented as of this encounter
--- OUTSIDE RECORDS SUMMARY | 2024-10-28 06:14 | XMS_ITS | Encounter Summary ---
Author Organization [facility] Address [address] [place] [address] Phone Care Team Providers Care Knit Goods Press Hand Name Role Phone Guero Colunga DO Primary Care Provider [phone] Amber Montesinos RN Unavailable [phone] Jil Duncan MD Unavailable [phone] Anita Gillespie MD Unavailable [phone] Tabitha Hurley MD Unavailable [phone] Reason for Visit * Reason Onset Date Comments opat 01/02/2022 Encounter Details Date Type Department Care Team (Late st Contact Info) Description 01/02/2022 Telephone [facility] Infectious Diseases [address] [place] [phone] Ny Griffin opat Social History Tobacco [...] on file Legal 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 Gender Identity Not on file Sexual Orientation Straight 08/22/2021 9: 23 AM CDT documented as of this encounter Miscellaneous Notes * Telephone Encounter - Ny Griffin - 01/02/2022 4:20 PM CST Labs from 12/27/21: CMV: [id number] ([id number]) TRICAL ENGINEER MEP documented in this encounter Plan of Treatment Scheduled Procedures Name Priority Associated Diagnoses Date/Ti me COLONOSCOPY Encounter for screening for colorectal cancer in high risk patient Family history of rectal cancer documented as of this encounter Visit Diagnoses Not on filedocumented in this encounter Care Teams Knit Goods Press Hand Relationship Specialty Start Date End Date Guero Colunga DO PCP - General Internal Medicine 03/22/19 04/18/23 Amber Montesinos, SHAILESH Vp Client Services Transplant 11/17/19 Jil Duncan MD Consulting Physician Infectious Diseases 01/10/20 Anita Gillespie MD Medical Oncologist/Steam Crane Operator Medical Oncology 10/07/20 Tabitha Hurley MD [address] [facility] 14 [place] [address] Consulting Physician Rheumatology 10/22/21 documented as of this encounter
--- OUTSIDE RECORDS SUMMARY | 2024-10-28 06:14 | XMS_ITS | Encounter Summary ---
Author Organization [facility] Address [address] [place] [address] Phone Care Team Providers Care Ordnance Keeper Name Role Phone Guero Colunga DO Primary Care Provider [phone] Amber Montesinos RN Unavailable [phone] Jil Duncan MD Unavailable [phone] Anita Gillespie MD Unavailable [phone] Tabitha Hurley MD Unavailable Reason for Visit * Reason Onset Date Comments opat 01/05/2022 Encounter Details Date Type Department Care Team (Late st Contact Info) Description 01/05/2022 Telephone [facility] Infectious Diseases [address] [place] [phone] Ny Griffin opat Social History Tobacco [...] on file Legal 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 ----- Message ----- From: Lisandra Auguste NP Sent: 01/05/2022 9:40 AM INSTRUCTIONAL RESOURCE TEACHER To: Val De Jesus RPh, # Yes, please continue for at least another 3 weeks. Plan is to continue until he has had 2 undetectable CMV viral loads. ----- Message ----- From: Ny Griffin Sent: 01/05/2022 9:24 AM INSTRUCTIONAL RESOURCE TEACHER To: Val De Jesus [facility], # Lisandra, Please advise ----- Message ----- From: Val De Jesus RPh Sent: 01/05/2022 9:18 AM INSTRUCTIONAL RESOURCE TEACHER To: Lisandra Auguste NP, Melony Jerome [facility], # Hi all, Please let us know if Beka's ganciclovir is to be continued after his visit today. Rosemarie Holcomb RUCTIONAL RESOURCE TEACHER documented in this encounter Plan of Treatment Scheduled Procedures Name Priority Associated Diagnoses Date/Ti me COLONOSCOPY Encounter for screening for colorectal cancer in high risk patient Family history of rectal cancer documented as of this encounter Visit Diagnoses Not on filedocumented in this encounter Care Teams Ordnance Keeper Relationship Specialty Start Date End Date Guero Colunga DO PCP - General Internal Medicine 03/22/19 04/18/23 Amber Montesinos, SHAILESH Regional Transportation Manager Transplant 1/17/20 Jil Duncan MD Consulting Physician Infectious Diseases 01/10/20 Anita Gillespie MD Medical Oncologist/Track Repair Laborer Medical Oncology 10/07/20 Tabitha Hurley MD [address] [facility] [address] [facility] 14 [place] [address] Consulting Physician Rheumatology 10/22/21 documented as of this encounter
--- OUTSIDE RECORDS SUMMARY | 2024-10-28 06:14 | XMS_ITS | Encounter Summary ---
Author Organization [facility] Healthcare Address [address] [place] [address] Care Team Providers Care Charge Authorizer Name Role Phone Guero Colunga Primary Care Provider [phone] Amber Montesinos RN Unavailable [phone] Jil Duncan MD Unavailable [phone] Anita Gillespie MD Unavailable [phone] Tabitha Hurley MD Unavailable [phone] Reason for Referral * Diagnostic Imaging (Routine) - Closed Specialty Diagnoses / Procedures Referred By Sascha rey Referred To Contact Radiology Diagnoses 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HCC) Procedures IR PICC Line Placement Over 5 Years of Age Александр Mendosa MD [facility] [address] [place] [address] Phone: tel: fax: [address] [address] Referral ID Status Reason Start Date Expiration Date Visits Re quested Visits Authorized [id number] Closed 12/25/2021 01/24/2023 1 1 AISAL TECHNICIAN * Diagnostic Imaging (Routine) - Closed Specialty Diagnoses / Procedures Referred By Contyadira rey Referred To Contact Radiology Diagnoses Liver transplant recipient (CMS/HCC) (HCC) Procedures IR Follow Up Outpatient Александр Mendosa MD [address] [place] [address] Phone: tel: fax: [address] [phone] Referral ID Status Reason Start Date Expiration Date Visits Re quested Visits Authorized [id number] Closed 12/25/2021 01/24/2023 1 1 AISAL TECHNICIAN Reason for Visit * Diagnostic Imaging (Routine) - Closed Specialty Diagnoses / Procedures Referred By Contac t Referred To Contact Radiology Diagnoses Liver transplant recipient (CMS/HCC) (HCC) Procedures IR Follow Up Outpatient Александр Mendosa MD [address] [place] [address] Phone: tel: fax: [address] [phone] Referral ID Status Reason Start Date Expiration Date Visits Re quested Visits Authorized [id number] Closed 12/25/2021 01/24/2023 1 1 Encounter Details Date Type Department Care Team (Late st Contact Info) Description 12/25/2021 10:10 AM APPRAISAL TECHNICIAN - 12/25/2021 11:11 AM APPRAISAL TECHNICIAN Hospital Encounter [facility] Radiology [address] [address] Александр Mendosa MD [address] [place], [place] [id number] 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HCC) (Primary Dx); Liver transplant recipient (CMS/HCC) (HCC) Discharge Disposition: Discharge to home [...] on file Legal Sex Male 6:28 AM APPRAISAL TECHNICIAN Gender Identity Not on file Sexual Orientation Straight 08/22/2021 9: 23 AM CDT documented as of this encounter Medications at Time of Discharge ganciclovir (CYTOVENE) 500 mg injectionIndicat ions:cytomegalov irus disease Infuse 5.7 mL (285 mg total) into a venous catheter every 12 (twelve) hours 342 mL 12/05/2021 2 0.9 % sodium chloride ([facility] sodium chloride 0.9%) injectionIndicat ions:line patency Infuse 10 mL into a venous catheter as needed for line care. Indications: line patency 2 heparin lock flush, porcine, 10 unit/mL solutionIndicati ons:Maintain Patency of Indwelling Vascular Catheter Infuse 5 mL into a venous catheter as needed (line patency). Indications: prevent clot from blocking an intravenous catheter 2 IgG/hyaluronidas e,recombinant (HYQVIA SUBQ) Inject under the skin 2 letermovir (PREVYMIS) 480 mg tablet Take 1 tablet (480 mg total) by mouth daily 30 tablet 10/06/2021 2 tacrolimus (PROGRAF) 0.5 mg immediate-releas e [...] times a day 120 tablet 11/13/2020 2 valGANciclovir (VALCYTE) 450 mg tablet Take 900 mg by mouth 2 (two) times a day 2 documented as of this encounter Discharge Disposition Disposition Code Departure Means Destination Discharge to home or self care documented in this encounter Plan of Treatment Scheduled Procedures Name Priority Associated Diagnoses Date/Ti me COLONOSCOPY Encounter for screening for colorectal cancer in high risk patient Family history of rectal cancer documented as of this encounter Procedures Procedure Name Priority Date/Time Associated Diagnosis Comments IR FOLLOW UP OUTPATIENT Schedule Routine, Read Routine (OP Routine) 12/25/2021 11:00 AM APPRAISAL TECHNICIAN Liver transplant recipient (CMS/HCC) (HCC) documented in this encounter Results * IR PICC Line Placement Over 5 Years of Age (12/26/2021 11:21 AM APPRAISAL TECHNICIAN) Anatomical Region Laterality Modality Body N/A X-Ray Angiograph y 12/26/2021 2:29 PM APPRAISAL TECHNICIAN Impressions 12/26/2021 4:14 PM APPRAISAL TECHNICIAN Successful nontunneled catheter placement. PLAN: The catheter is ready for immediate use. ??When treatment is completed, this catheter can be removed at the bedside according to standard hospital protocol. ?? Dictated by: Murtaza López M.D. The radiology attending physician has personally reviewed this study, and had reviewed and/or edited this written report and agrees with it. Electronically signed by: Alvarado Rodríguez M.D. Narrative 12/26/2021 4:14 PM APPRAISAL TECHNICIAN EXAMINATION: ??NONTUNNELED CENTRAL VENOUS CATHETER PLACEMENT (STD) HISTORY: 26-year-old male with CMV viremia, requiring outpatient ??IV medications. ??His right arm PICC was having serious discharge from the venotomy site. ATTENDING PRESENCE: ??Alvarado Rodríguez M.D., the attending radiologist was present from the beginning to the end of the procedure. ??Dr. Murtaza López M.D. was present and participated in the procedure. SEDATION: The patient did not require conscious sedation for the procedure. TECHNIQUE: ?? The risks, benefits and alternatives were discussed and informed consent was obtained. ??Prior to beginning the procedure, [place] Protocol was used to confirm the patient's identity and planned procedure. ??Fluoroscopy time has been recorded in the electronic medical record. Maximum sterile barriers including cap, mask, hand hygiene, sterile gloves, sterile gown, large sterile drape and 2% chlorhexidine for cutaneous antisepsis were used. ??The skin over the left medial basilic vein was sterilely prepped, draped and infiltrated with 1% buffered lidocaine. ?? Prior to the procedure, the target vessel was evaluated by ultrasound, an image of the patent vessel recorded, and this image placed in the patient's chart. ??After sterile prep, this vessel was accessed using realtime ultrasound guidance. A guidewire and catheter were then passed centrally using fluoroscopic guidance. ?? The intravascular length from the access site to the right atrium was assessed. After dilating the tract, a 43 cm long dual lumen PICC was inserted over the guidewire. The catheter was flushed with 100U/ml heparin and secured in place. A sterile dressing was applied. ?? After this, the attention was shifted to the right arm PICC line, which was removed. ESTIMATED BLOOD LOSS: Minimal. CONDITION: Stable DISCHARGED TO: home. FINDINGS: The final fluoroscopic image demonstrates the catheter with its tip in the right atrium. ??No complications are seen. Procedure Note Alvarado Rodríguez MD - 12/26/2021 EXAMINATION: NONTUNNELED CENTRAL VENOUS CATHETER PLACEMENT (STD) HISTORY: 26-year-old male with CMV viremia, requiring outpatient IV medications. His right arm PICC was having serious discharge from the venotomy site. ATTENDING PRESENCE: Alvarado Rodríguez M.D., the attending radiologist was present from the beginning to the end of the procedure. Dr. Murtaza López M.D. was present and participated in the procedure. SEDATION: The patient did not require conscious sedation for the procedure. TECHNIQUE: The risks, benefits and alternatives were discussed and informed consent was obtained. Prior to beginning the procedure, [place] Protocol was used to confirm the patient's identity and planned procedure. Fluoroscopy time has been recorded in the electronic medical record. Maximum sterile barriers including cap, mask, hand hygiene, sterile gloves, sterile gown, large sterile drape and 2% chlorhexidine for cutaneous antisepsis were used. The skin over the left medial basilic vein was sterilely prepped, draped and infiltrated with 1% buffered lidocaine. Prior to the procedure, the target vessel was evaluated by ultrasound, an image of the patent vessel recorded, and this image placed in the patient's chart. After sterile prep, this vessel was accessed using realtime ultrasound guidance. A guidewire and catheter were then passed centrally using fluoroscopic guidance. The intravascular length from the access site to the right atrium was assessed. After dilating the tract, a 43 cm long dual lumen PICC was inserted over the guidewire. The catheter was flushed with 100U/ml heparin and secured in place. A sterile dressing was applied. After this, the attention was shifted to the right arm PICC line, which was removed. ESTIMATED BLOOD LOSS: Minimal. CONDITION: Stable DISCHARGED TO: home. FINDINGS: The final fluoroscopic image demonstrates the catheter with its tip in the right atrium. No complications are seen. IMPRESSION: Successful nontunneled catheter placement. PLAN: The catheter is ready for immediate use. When treatment is completed, this catheter can be removed at the bedside according to standard hospital protocol. Dictated by: Murtaza López M.D. The radiology attending physician has personally reviewed this study, and had reviewed and/or edited this written report and agrees with it. Electronically signed by: Alvarado Rodríguez M.D. Александр Mendosa MD IMG IR PROCEDURES Final Resul t * IR Follow Up Outpatient (12/25/2021 11:00 AM APPRAISAL TECHNICIAN) Anatomical Region Laterality Modality Radio Fluoroscop y 12/25/2021 4:14 PM APPRAISAL TECHNICIAN Impressions 12/25/2021 4:24 PM APPRAISAL TECHNICIAN Right arm PICC line dressing change and scheduled for a new left arm PICC line placement in this PICC line removal tomorrow. Dictated by: Murtaza López M.D. The radiology attending physician has personally reviewed this study, and had reviewed and/or edited this written report and agrees with it. Electronically signed by: Jarad Campos M.D. Narrative 12/25/2021 4:24 PM APPRAISAL TECHNICIAN EXAMINATION: IR FOLLOW UP OUTPATIENT HISTORY: Post transplant lymphoproliferative disorder with CMV viremia, needs intravenous ganciclovir. ??Recent PICC line exchange yesterday, with persistent saturation of the dressing with serous discharge. Notably, patient had similar complaints previously and was potentially thinking there was a break in the PICC catheter, although the discharge was serous fluid, not blood. Patient came in today with similar complaints. ??We changed the dressing in a sterile fashion. ??Potentially, a new PICC line insertion in the left arm would help ameliorate this issue. ??This was offered to the patient, he done [facility] today or [facility] tomorrow. ??Patient chose to come in tomorrow for a new left arm PICC line placement. Procedure Note Jarad Campos MD - 12/25/2021 EXAMINATION: IR FOLLOW UP OUTPATIENT HISTORY: Post transplant lymphoproliferative disorder with CMV viremia, needs intravenous ganciclovir. Recent PICC line exchange yesterday, with persistent saturation of the dressing with serous discharge. Notably, patient had similar complaints previously and was potentially thinking there was a break in the PICC catheter, although the discharge was serous fluid, not blood. Patient came in today with similar complaints. We changed the dressing in a sterile fashion. Potentially, a new PICC line insertion in the left arm would help ameliorate this issue. This was offered to the patient, he done [facility] today or [facility] tomorrow. Patient chose to come in tomorrow for a new left arm PICC line placement. IMPRESSION: Right arm PICC line dressing change and scheduled for a new left arm PICC line placement in this PICC line removal tomorrow. Dictated by: Murtaza López M.D. The radiology attending physician has personally reviewed this study, and had reviewed and/or edited this written report and agrees with it. Electronically signed by: Jarad Campos M.D. 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
--- OUTSIDE RECORDS SUMMARY | 2024-10-28 06:14 | XMS_ITS | Encounter Summary ---
Author Organization [facility] Healthcare Address [address] [place] [address] Care Team Providers Care Air Defence Officer Name Role Phone Guero Colunga Primary Care Provider [phone] Amber Montesinos RN Unavailable [phone] Jil Duncan MD Unavailable [phone] Anita Gillespie MD Unavailable [phone] Tabitha Hurley MD Unavailable [phone] Encounter Details Date Type Department Care Team (Late st Contact Info) Description 01/06/2022 Documentation [facility] Transplant Liver [address] [address] [address] [id number] [place], [place] [id number] Amber Montesinos RN Social History Tobacco Use [...] on file Legal Sex Male 6:28 AM UNDERCOVER COP Gender Identity Not on file Sexual Orientation Straight 08/22/2021 9: 23 AM CDT documented as of this encounter Progress Notes * Amber Vargas RN - 01/06/2022 11:36 AM CST Labs reviewed with Dr. Gresham. Patient getting weekly labs at this time with ID. No changes indicated at this time. Will continue to follow weekly labs. RCOVER COP documented in this encounter Plan of Treatment Scheduled Procedures Name Priority Associated Diagnoses Date/Ti me COLONOSCOPY Encounter for screening for colorectal cancer in high risk patient Family history of rectal cancer documented as of this encounter Visit Diagnoses Not on filedocumented in this encounter Care Teams Air Defence Officer Relationship Specialty Start Date End Date Guero Colunga DO PCP - General Internal Medicine 03/22/19 04/18/23 Amber Montesinos RN Satellite Manager Transplant 11/17/19 Jil Duncan MD Consulting Physician Infectious Diseases 01/10/20 Anita Gillespie MD Medical Oncologist/Director Of Federal Sales Medical Oncology 10/07/20 Tabitha Hurley MD [address] [facility] [address] [place] [address] Consulting Physician Rheumatology 10/22/21 documented as of this encounter
--- OUTSIDE RECORDS SUMMARY | 2024-10-28 06:14 | XMS_ITS | Encounter Summary ---
Author Organization [facility] Address [address] [place] [address] Phone Care Team Providers Care Outbound Telemarketer Name Role Phone Guero Colunga DO Primary Care Provider [phone] Amber Montesinos RN Unavailable [phone] Jil Duncan MD Unavailable [phone] Anita Gillespie MD Unavailable [phone] Tabitha Hurley MD Unavailable [phone] Reason for Visit * Reason Onset Date Comments opat 12/23/2021 Encounter Details Date Type Department Care Team (Late st Contact Info) Description 12/23/2021 Telephone [facility] Infectious Diseases [address] [place] [phone] Ny Griffin opat Social History Tobacco [...] on file Legal Sex Male 6:28 AM CODE NUMBER STAMPER Gender Identity Not on file Sexual Orientation Straight 08/22/2021 9: 23 AM CDT documented as of this encounter Miscellaneous Notes * Telephone Encounter - Ny Griffin - 12/23/2021 11:59 AM CST ----- Message from Melony Jerome RP sent at 12/23/2021 11:55 AM CODE NUMBER STAMPER ----- Regarding: Line problem Patients line leaking per Irma CASH, scheduled with IR for Wed. Will miss at least 2 doses. FYI NUMBER STAMPER documented in this encounter Plan of Treatment Scheduled Procedures Name Priority Associated Diagnoses Date/Ti me COLONOSCOPY Encounter for screening for colorectal cancer in high risk patient Family history of rectal cancer documented as of this encounter Visit Diagnoses Not on filedocumented in this encounter Care Teams Outbound Telemarketer Relationship Specialty Start Date End Date Guero Colunga DO PCP - General Internal Medicine 03/22/19 04/18/23 Amber Montesinos, SHAILESH Infertility Medical Assistant Transplant 11/17/19 Jil Duncan MD Consulting Physician Infectious Diseases 01/10/20 Anita Gillespie MD Medical Oncologist/Sports Apparel Internship Medical Oncology 10/07/20 Tabitha Hurley MD [address] [facility] [address] [place] [address] Consulting Physician Rheumatology 10/22/21 documented as of this encounter
--- OUTSIDE RECORDS SUMMARY | 2024-10-28 06:14 | XMS_ITS | Encounter Summary ---
Author Organization [facility] Healthcare Address [address] [place] [address] Care Team Providers Care Customs Entry Writer Name Role Phone Guero Colunga Primary Care Provider [phone] Amber Montesinos RN Unavailable [phone] Jil Dnucan MD Unavailable [phone] Anita Gillespie MD Unavailable [phone] Tabitha Hurley MD Unavailable [phone] Encounter Details Date Type Department Care Team (Late st Contact Info) Description 12/27/2021 11:05 AM NATURAL RESOURCES INSTRUCTOR Lab [address] [address] Social History Tobacco Use Types [...] on file Legal Sex Male 6:28 AM NATURAL RESOURCES INSTRUCTOR Gender Identity Not on file Sexual [...] CYTOMEGALOVIRUS (CMV) DNA, QUANT GEN LAB Routine 12/27/2021 8:30 AM NATURAL RESOURCES INSTRUCTOR GLUCOSE, RANDOM (OUTREACH) Routine 12/27/2021 8:30 AM NATURAL RESOURCES INSTRUCTOR EGFR Routine 12/27/2021 8:30 AM NATURAL RESOURCES INSTRUCTOR DIFFERENTIAL AUTO Routine 12/27/2021 8:3 0 AM NATURAL RESOURCES INSTRUCTOR COMPREHENSIVE METABOLIC PANEL WITHOUT GLUCOSE (OUTREACH) Routine 12/27/2021 8:30 AM NATURAL RESOURCES INSTRUCTOR CBC WITH AUTO DIFFERENTIAL Routine 12/27/2021 8:30 AM NATURAL RESOURCES INSTRUCTOR GAMMA GT Routine 12/27/2021 8:30 AM NATURAL RESOURCES INSTRUCTOR documented in this encounter Results * (ABNORMAL) Cytomegalovirus (CMV) DNA PCR, quantitative Blood (12/27/2021 8:30 AM NATURAL RESOURCES INSTRUCTOR) CMV DNA Detected( A) [facility] Comment: Interpretive Data: The quantifiable range of this assay is 34 IUnits/mL to 10,000,000 IUnits/mL (1.53 log IUnits/mL to 7.0 log IUnits/mL). Testing was performed by the NIA 6800 CMV Test ([employer] Testing performed at [facility] Current interpretive data was last revised on 2021. CMV DNA IU/mL 569 IUnits/mL [facility] CMV DNA log IU/mL 2.76 log IUnits/mL [facility] Blood 12/27/2021 8:30 AM NATURAL RESOURCES INSTRUCTOR 12/27/2021 1:34 PM NATURAL RESOURCES INSTRUCTOR us Ige Sonido Duncan MD LAB MICROBIOLOGY - GENERAL ORDERABLES Final Result Performing Organization Address [facility] Co de Phone Number BROOKE [facility] Department [place] [address] * eGFR (12/27/2021 8:30 AM NATURAL RESOURCES INSTRUCTOR) eGFR >90 90 - 130 mL/min/1. 73 m2 [facility] Comment: Interpretive Data Reference Interval [...] interpretive data was last reviewed 2021. Blood 12/27/2021 8:30 AM NATURAL RESOURCES INSTRUCTOR 12/27/2021 12:01 PM NATURAL RESOURCES INSTRUCTOR us Ige Sonido Duncan MD LAB BLOOD ORDERABLES Final Result Performing Organization Address [facility] Co de Phone Number BROOKE [facility] Department [place] [address] * (ABNORMAL) Differential, auto (12/27/2021 8:30 AM NATURAL RESOURCES INSTRUCTOR) Neutrophil abs 2.5 1.7 - 6.5 K/cumm [facility] Imm gran abs 0.1 0.0 - 0.1 K/cumm [facility] Lymphocyte abs 3.8(H) 0.8 - 3.3 K/cumm [facility] Monocyte abs 2.3(H) 0.2 - 0.8 K/cumm [facility] Eosinophil abs 0.1 0.0 - 0.5 K/cumm [facility] Basophil abs 0.1 0.0 - 0.1 K/cumm [facility] Neutrophil pct 28.2 % [facility] Comment: Interpretive Data Percent cell count reference ranges are not reported, since discordance with absolute values may lead to misinterpretation of CBC data. Current Interpretive Data was last revised on 2018. Imm gran pct 0.6 % [facility] Comment: Interpretive Data Percent cell count reference ranges are not reported, since discordance with absolute values may lead to misinterpretation of CBC data. Current Interpretive Data was last revised on 2018. Lymphocyte pct 43.4 % [facility] Comment: Interpretive Data Percent cell count reference ranges are not reported, since discordance with absolute values may lead to misinterpretation of CBC data. Current Interpretive Data was last revised on 2018. Monocyte pct 25.9 % [facility] Comment: Interpretive Data Percent cell count reference ranges are not reported, since discordance with absolute values may lead to misinterpretation of CBC data. Current Interpretive Data was last revised on 2018. Eosinophil pct 1.1 % [facility] Comment: Interpretive Data Percent cell count reference ranges are not reported, since discordance with absolute values may lead to misinterpretation of CBC data. Current Interpretive Data was last revised on 2018. Basophil pct 0.8 % [facility] Comment: Interpretive Data Percent cell count reference ranges are not reported, since discordance with absolute values may lead to misinterpretation of CBC data. Current Interpretive Data was last revised on 2018. Blood 12/27/2021 8:30 AM NATURAL RESOURCES INSTRUCTOR 12/27/2021 11:05 AM NATURAL RESOURCES INSTRUCTOR us Ige Sonido Dakota MD LAB BLOOD ORDERABLES Final Result [facility] [place] [address] * (ABNORMAL) Gamma GT (12/27/2021 8:30 AM NATURAL RESOURCES INSTRUCTOR) [facility] GGT 106(H) 10 - 50 Units/L [facility] Blood 12/27/2021 8:30 AM NATURAL RESOURCES INSTRUCTOR 12/27/2021 11:04 AM NATURAL RESOURCES INSTRUCTOR Jil Duncan MD LAB BLOOD ORDERABLES Final Result Performing Organization Address [facility] Co de Phone Number [facility] [place] [address] * (ABNORMAL) CBC with auto differential (12/27/2021 8:30 AM NATURAL RESOURCES INSTRUCTOR) [facility] WBC 8.7 3.8 - 9.9 K/cumm [facility] Hgb 12.7(L) 13.0 - 17.5 g/dL [facility] Hct 34.6(L) 38.9 - 50.3 % [facility] Plt 97(L) 150 - 400 K/cumm [facility] MPV 12.2 9.1 - 12.3 fL [facility] RBC 3.61(L) 4.30 - 5.80 M/cumm [facility] MCV 95.8 81.3 - 96.4 fL [facility] MCH 35.2(H) 27.1 - 33.3 pg [facility] MCHC 36.7(H) 32.3 - 35.7 g/dL [facility] RDW CV 16.4(H) 11.1 - 14.9 % [facility] RDW SD 58.4(H) 35.7 - 48.1 fL [facility] NRBC abs 0.00 0.00 - 0.01 K/cumm [facility] Blood 12/27/2021 8:30 AM NATURAL RESOURCES INSTRUCTOR 12/27/2021 11:05 AM NATURAL RESOURCES INSTRUCTOR Jil Duncan MD LAB BLOOD ORDERABLES Final Result Performing Organization Address [facility] Co de Phone Number BR[facility]KE [facility] [place] [address] * Glucose, random (Outreach) (12/27/2021 8:30 AM NATURAL RESOURCES INSTRUCTOR) Glucose 76 70 - 199 mg/dL [facility] Comment: Interpretive Data Fasting glucose >/= [...] interpretive data was last revised 2017. Blood 12/27/2021 8:30 AM NATURAL RESOURCES INSTRUCTOR 12/27/2021 11:04 AM NATURAL RESOURCES INSTRUCTOR Jil Duncan MD LAB BLOOD ORDERABLES Final Result Performing Organization Address [facility] de Phone Number BROOKE [facility] Department [place] [address] * (ABNORMAL) Comprehensive metabolic panel, without glucose (Outreach) (12/27/2021 8:30 AM NATURAL RESOURCES INSTRUCTOR) Sodium 140 135 - 145 mmol/L [facility] Potassium, pl 3.9 3.3 - 4.9 mmol/L [facility] Chloride 109 97 - 110 mmol/L [facility] CO2 22 22 - 32 mmol/L [facility] Anion gap 9 2 - 15 mmol/L [facility] BUN 8 8 - 25 mg/dL [facility] Creatinine 0.67(L) 0.80 - 1.30 mg/dL [facility] Calcium 8.5 8.5 - 10.3 mg/dL [facility] Protein, pl 5.7(L) 6.5 - 8.5 g/dL [facility] Albumin 3.5 3.5 - 5.0 g/dL [facility] Bilirubin, total 1.7(H) 0.1 - 1.2 mg/dL [facility] Alk phos 313(H) 40 - 130 Units/L [facility] AST 48 10 - 50 Units/L [facility] ALT 35 7 - 55 Units/L [facility] Blood 12/27/2021 8:30 AM NATURAL RESOURCES INSTRUCTOR 12/27/2021 11:04 AM NATURAL RESOURCES INSTRUCTOR Jil Duncan MD LAB BLOOD ORDERABLES Final Result [facility] Department [place] [address] documented in this encounter Visit Diagnoses Not on filedocumented in this encounter Care Teams Customs Entry Writer Relationship Specialty Start Date End Date Guero Colunga DO PCP - General Internal Medicine 03/22/19 04/18/23 Amber Montesinos, SHAILESH Deckhand Oyster Dredge Transplant 11/17/19 Jil Duncan MD Consulting Physician Infectious Diseases 01/10/20 Anita Gillespie MD Medical Oncologist/Business Coordinator Medical Oncology 10/07/20 Tabitha Hurley MD [address] [facility] [address] [place] [address] Consulting Physician Rheumatology 10/22/21 documented as of this encounter
--- OUTSIDE RECORDS SUMMARY | 2024-10-28 06:14 | XMS_ITS | Encounter Summary ---
Author Organization [facility] Address [address] [place] [address] Phone Care Team Providers Care Nuclear Radiation Engineer Name Role Phone Guero Colunga Primary Care Provider Amber Montesinos RN Unavailable [phone] Jil Duncan MD Unavailable [phone] Anita Gillespie MD Unavailable [phone] Tabitha Hurley MD Unavailable [phone] Reason for Visit * Auth/Cert Specialty Diagnoses / Procedures Referred By Contac t Referred To Contact Referral ID Status Reason Start Date Expiration Date Visits Re quested Visits Authorized [id number] 1 1 Encounter Details Date Type Department Care Team (Late st Contact Info) Description 12/21/2021 7:30 AM PRODUCT GRADER Home Care Visit [facility] [address] [address] [address] [place] [address] Parish Vyas, SHAILSEH SN HOME VISIT Social History Tobacco Use [...] file Legal Sex Male 6:28 AM PRODUCT GRADER Gender Identity Not on file Sexual Orientation Straight 08/22/2021 9: 23 AM CDT documented as of this encounter Last Filed Vital Signs Vital Sign Reading Time Taken Comments Blood Pressure 110/68 12/21/2021 8:19 AM PRODUCT GRADER Pulse 78 12/21/2021 8:19 AM PRODUCT GRADER Temperature 37.3 ??C (99.1 ??F) 12/21/2021 8:19 AM CS T Respiratory Rate 16 12/21/2021 8:19 AM PRODUCT GRADER Oxygen Saturation 99% 12/21/2021 8:19 AM PRODUCT GRADER Inhaled Oxygen Concentration - - Weight 49.9 kg (110 lb) 12/21/2021 8:19 AM PRODUCT GRADER Height 172.7 cm (5' 8 ) 12/21/2021 8:19 AM PRODUCT GRADER Body Mass Index 16.73 12/21/2021 8:19 AM PRODUCT GRADER documented in this encounter Plan of Treatment [...] Dose Rate Site 0.9 % sodium chloride ([facility] sodium chloride 0.9%) injection 10 mL, intravenous, As needed, line care, Starting on Wed12/22/21 at 1012, Indications: line patencyIndications:line patency Given 12/22/2021 9:00 AM PRODUCT GRADER 10 mL heparin lock flush, porcine, 10 unit/mL solution 5 mL, intravenous, As needed, line patency, Starting on 12/22/21 at 1012, Indications: Maintain Patency of Indwelling Vascular CatheterIndications:Maintain Patency of Indwelling Vascular Catheter Given 12/22/2021 9:00 AM PRODUCT GRADER 5 mL documented in this encounter Home [...] home health visit Disciplines: SN, PT, OT, TORCH OPERATOR, HEAD START ASSISTANT TEACHER, Skilled Disciplines Monitor patient's vital signs every [...] visit during episode of care Description: Home php wordpress developer to measure vital signs during every home [...] drug allergies, and potential complications. Problem:Medications Completed Patient and Caregiver instructed on medication administration, purpose, dosages, preparation, scheduling, side effects, food/drug interactions, and potential complications. Current regimen and compliance reviewed with Patient and Caregiver. Patient and Caregiver verbalizes knowledge of home management of IV catheter. Medications taught gancyclovir. Instruct on IV complications Description: Instruct patient/caregiver [...] Needs - IV Therapy Completed Patient and Caregiver instructed on frequent/proper hand-washing techniques, Standard precautions, avoid crowds and persons with known infections, staying current with immunizations, s/s of infection, use of incentive spirometer, use of antibiotics and encourage adequate diet and fluid intake. Patient and Caregiver verbalizes knowledge of home management of IV catheter. [...] - IV Therapy Completed Dressing change to right performed by SN. Old dressing removed. Well [...] good handwashing, aseptic technique as per [facility] Home Infusion Policies and Procedures, and troubleshooting/manag ement. Instruct on IV flush Description: Instruct patient/caregiver in how to perform flushing of IV line according to MD orders or protocol. Problem:Learning/Teac kofi Needs - IV Therapy Completed Pt verbalizes good understanding of IV flush procedure using aseptic technique as per [facility] HH Infusion policy. IV Administration Description: [...] Health Visit - Actions and Narratives Actions Second teach gancyclovir. Pt and family demonstrate good understanding of aseptic technique using [facility] Home Care Infusion protocols. All verbalize good understanding of potential IV complications and management of home IV device. All vital signs fall within acceptable parameters, and the patient is free of distress, tolerating current therapy well. documented in this encounter Care Teams Nuclear Radiation Engineer Relationship Specialty Start Date End Date Guero Colunga DO PCP - General Internal Medicine 03/22/19 04/18/23 Amber Montesinos RN Graduate Teacher Education Transplant 1/17/20 Jil Duncan MD Consulting Physician Infectious Diseases 01/10/20 Anita Gillespie MD Medical Oncologist/Crankshaft Grinder Medical Oncology 10/07/20 Tabitha Hurley MD [address] [facility] [address] [facility] [address] [place] [address] Consulting Physician Rheumatology 10/22/21 documented as of this encounter
--- OUTSIDE RECORDS SUMMARY | 2024-10-28 06:14 | XMS_ITS | Encounter Summary ---
Author Organization [facility] Healthcare Address [address] [place] [address] Care Team Providers Care Scientific Programmer Name Role Phone Guero Colunga Primary Care Provider [phone] Amber Montesinos RN Unavailable [phone] Jil Duncan MD Unavailable [phone] Ainta Gillespie MD Unavailable [phone] Tabitha Hurley MD Unavailable [phone] Encounter Details Date Type Department Care Team (Late st Contact Info) Description 12/29/2021 Telephone [facility] Transplant Liver [address] [address] [phone] [place] [address] Amber Montesinos RN Social History [...] on file Legal Sex Male 6:28 AM BOXING PROMOTER Gender Identity Not on file Sexual Orientation Straight 08/22/2021 9: 23 AM CDT documented as of this encounter Miscellaneous Notes * Telephone Encounter - Amber Vargas RN - 12/29/2021 4:15 PM CST Received call from [facility]. Discussed current labs being drawn by ID. Discussed adding a tacrolimus trough to next labs. Nurse stating that patient had been taking his tacrolimus at night after work which would not allow them to draw accurate trough levels. She spoke to patient's mom today and is going to review having patient switch dose to the morning so they are able to draw his labs Wednesday mornings. Asked her to please call if any questions or concerns regarding timing or being able to obtain tacrolimus level on Wednesday. NG PROMOTER documented in this encounter Plan of Treatment Scheduled Procedures Name Priority Associated Diagnoses Date/Ti me COLONOSCOPY Encounter for screening for colorectal cancer in high risk patient Family history of rectal cancer documented as of this encounter Visit Diagnoses Not on filedocumented in this encounter Care Teams Scientific Programmer Relationship Specialty Start Date End Date Guero Colunga DO PCP - General Internal Medicine 03/22/19 04/18/23 Amber Montesinos RN Lode Miner Transplant 11/17/19 Jil Duncan MD Consulting Physician Infectious Diseases 01/10/20 Anita Gillespie MD Medical Oncologist/Shift Mgr Medical Oncology 10/07/20 Tabitha Hurley MD [address] [facility] 14 [place] [address] Consulting Physician Rheumatology 10/22/21 documented as of this encounter
--- OUTSIDE RECORDS SUMMARY | 2024-10-28 06:14 | XMS_ITS | Encounter Summary ---
Author Organization [facility] Address [address] [place] [address] Phone Care Team Providers Care Protection Consultant Name Role Phone Guero Colunga Primary Care Provider [phone] Amber Montesinos RN Unavailable [phone] Jil Duncan MD Unavailable [phone] Anita Gillespie MD Unavailable [phone] Tabitha Hurley MD Unavailable [phone] Reason for Visit * Auth/Cert Specialty Diagnoses / Procedures Referred By Contac t Referred To Contact Referral ID Status Reason Start Date Expiration Date Visits Re quested Visits Authorized [id number] 1 1 Encounter Details Date Type Department Care Team (Late st Contact Info) Description 12/26/2021 Home Care Visit [facility] Home Health - [address] [place] [address] Lesvia Conde, RESIDENTIAL PEST CONTROL TECHNICIAN [address] [place] [address] TRAVEL SCREENING CASE COMMUNICATION Social History Tobacco Use [...] on file Legal Sex Male 6:28 AM ADULT EDUCATION INSTRUCTOR Gender Identity Not on file Sexual Orientation Straight 08/22/2021 9: 23 AM CDT documented as of this encounter Plan of Treatment Scheduled Procedures Name Priority Associated Diagnoses Date/Ti me COLONOSCOPY Encounter for screening for colorectal cancer in high risk patient Family history of rectal cancer documented as of this encounter Visit Diagnoses Not on filedocumented in this encounter Care Teams Protection Consultant Relationship Specialty Start Date End Date Guero Colunga DO PCP - General Internal Medicine 03/22/19 04/18/23 Amber Montesinos RN Respiratory Care Practitioner Transplant 11/17/19 Jil Duncan MD Consulting Physician Infectious Diseases 01/10/20 Anita Gillespie MD Medical Oncologist/Educational Specialist Medical Oncology 10/07/20 Tabitha Hurley MD [address] [facility] [address] [address] Consulting Physician Rheumatology 10/22/21 documented as of this encounter
--- OUTSIDE RECORDS SUMMARY | 2024-10-28 06:14 | XMS_ITS | Encounter Summary ---
Author Organization [facility] Healthcare Address [address] [place] [address] Care Team Providers Care Customer Success Advocate Name Role Phone Guero Colunga Primary Care Provider [phone] Amber Montesinos RN Unavailable [phone] Jil Duncan MD Unavailable [phone] Anita Gillespie MD Unavailable [phone] Tabitha Hurley MD Unavailable [phone] Encounter Details Date Type Department Care Team (Late st Contact Info) Description 12/25/2021 Telephone [facility] [address] [address] Kathy Peña RN Social History Tobacco Use Types Packs/Day [...] on file Legal Sex Male 6:28 AM FIRST AID ATTENDANT Gender Identity Not on file Sexual Orientation Straight 08/22/2021 9: 23 AM CDT documented as of this encounter Miscellaneous Notes * Telephone Encounter - Kathy Peña RN - 12/25/2021 1:53 PM FIRST AID ATTENDANT No answer T AID ATTENDANT documented in this encounter Plan of Treatment Scheduled Procedures Name Priority Associated Diagnoses Date/Ti me COLONOSCOPY Encounter for screening for colorectal cancer in high risk patient Family history of rectal cancer documented as of this encounter Visit Diagnoses Not on filedocumented in this encounter Care Teams Customer Success Advocate Relationship Specialty Start Date End Date Guero Colunga DO PCP - General Internal Medicine 03/22/19 04/18/23 Amber Montesinos RN Tassel Snipper Transplant 11/17/19 Jil Duncan MD Consulting Physician Infectious Diseases 01/10/20 Anita Gillespie MD Medical Oncologist/Commercial Specialist Medical Oncology 10/07/20 Tabitha Hurley MD [address] [facility] 14 [place] [address] Consulting Physician Rheumatology 10/22/21 documented as of this encounter
--- OUTSIDE RECORDS SUMMARY | 2024-10-28 06:14 | XMS_ITS | Encounter Summary ---
Author Organization [facility] Address [address] [place] [address] Phone Care Team Providers Care Anatomy And Physiology Instructor Name Role Phone Guero Colunga Primary Care Provider [phone] Amber Montesinos RN Unavailable [phone] Jil Duncan MD Unavailable [phone] Anita Gillespie MD Unavailable [phone] Tabitha Hurley MD Unavailable [phone] Encounter Details Date Type Department Care Team (Late st Contact Info) Description 01/05/2022 Orders Only [facility] [address] [place] [address] Val De Jesus, [facility] Social History Tobacco Use Types [...] on file Legal Sex Male 6:28 AM OPTIMIZATION MANAGER Gender Identity Not on file Sexual Orientation Straight 08/22/2021 9: 23 AM CDT documented as of this encounter Progress Notes * Val De Jesus RPh - 01/05/2022 10:07 AM CST HAIDER/Dr. Ashley Duncan/Narendra Auguste SLEEP LAB TECHNICIAN/Lily De Jesus PharmD Continue Ganciclovir 285mg in Normal Saline 100mL, infuse intravenously over 60 minutes every 12 hours by Elastomeric Device at 100mL/hr for another three weeks. LOT: ~01/26/22 MIZATION MANAGER documented in this encounter Plan of Treatment Scheduled Procedures Name Priority Associated Diagnoses Date/Ti me COLONOSCOPY Encounter for screening for colorectal cancer in high risk patient Family history of rectal cancer documented as of this encounter Visit Diagnoses Not on filedocumented in this encounter Care Teams Anatomy And Physiology Instructor Relationship Specialty Start Date End Date Guero Colunga DO PCP - General Internal Medicine 03/22/19 04/18/23 Amber Montesinos, SHAILESH Instructor Tap Dancing Transplant 11/17/19 Jil Duncan MD Consulting Physician Infectious Diseases 01/10/20 Anita Gillespie MD Medical Oncologist/Editorial Cartoonist Medical Oncology 10/07/20 Tabitha Hurley MD [address] [facility] 14 [place] [address] Consulting Physician Rheumatology 10/22/21 documented as of this encounter
--- OUTSIDE RECORDS SUMMARY | 2024-10-28 06:14 | XMS_ITS | Encounter Summary ---
Author Organization [facility] Home Care Servic es Address [address] [place] [address] Phone Care Team Providers Care Examination Proctor Name Role Phone Guero Colunga Primary Care Provider [phone] Amber Montesinos RN Unavailable [phone] Jil Duncan MD Unavailable [phone] Anita Gillespie MD Unavailable [phone] Tabitha Hurley MD Unavailable [phone] Reason for Visit * Auth/Cert Specialty Diagnoses / Procedures Referred By Contac t Referred To Contact Referral ID Status Reason Start Date Expiration Date Visits Re quested Visits Authorized [id number] 1 1 Encounter Details Date Type Department Care Team (Late st Contact Info) Description 01/03/2022 8:00 AM BENCH BORING 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 Home Care Visit [facility] [address] [address] [address] [place] [address] Juanita Martin RN SN HOME VISIT Social [...] on file Legal Sex Male 6:28 AM BENCH BORING 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 Gender Identity Not on file Sexual Orientation Straight 08/22/2021 9: 23 AM CDT documented as of this encounter Last Filed Vital Signs Vital Sign Reading Time Taken Comments Blood Pressure 112/64 01/03/2022 8:45 AM BENCH BORING 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 Pulse 82 01/03/2022 8:45 AM BENCH BORING 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 Temperature 37.3 ??C (99.1 ??F) 01/03/2022 8:45 AM CS T Respiratory Rate 16 01/03/2022 8:45 AM BENCH BORING 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 Oxygen Saturation 99% 01/03/2022 8:45 AM BENCH BORING 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 Inhaled Oxygen Concentration - - Weight - - Height 172.7 cm (5' 8 ) 01/03/2022 8:45 AM BENCH BORING 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 Body Mass Index - - documented in [...] Dose Rate Site 0.9 % sodium chloride (ON LICENSE OF [facility] sodium chloride 0.9%) injection 10 mL, intravenous, As needed, line care, Starting on 01/03/22 at 0858, Indications: line patencyIndications:line patency Given 01/03/2022 8:15 AM BENCH BORING 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 60 mL ganciclovir (CYTOVENE) 500 mg injection 285 mg, intravenous, Every 12 hours, First dose on 01/03/22 at 1600, For 30 days, Indications: cytomegalovirus diseaseIndications:cytomegalovirus disease Given 01/03/2022 8:45 AM BENCH BORING 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 285 mg heparin lock flush, porcine, 10 unit/mL solution 5 mL, intravenous, As needed, line patency, Starting on 01/03/22 at 0858, Indications: Maintain Patency of Indwelling Vascular CatheterIndications:Maintain Patency of Indwelling Vascular Catheter Given 01/03/2022 8:15 AM BENCH BORING 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 15 mL documented in this encounter Home Health [...] home health visit Disciplines: SN, PT, OT, NAIL 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, RESOURCE MANAGER, Skilled Disciplines Monitor patient's vital signs every home health visit. 12/20/2021 Active 1 goal linked to scheduled/docume nted intervention 1 goal intervention scheduled/documen mohsen in this visit Infection Prevention Disciplines: Skilled Disciplines Infection Prevention 12/20/2021 Active 1 goal linked to scheduled/docume nted intervention 3 goal interventions scheduled/documen mohsen in this visit Safety concerns Disciplines: Skilled Disciplines Alteration in safety 12/20/2021 Active 1 goal linked to scheduled/docume nted intervention 2 goal interventions scheduled/documen mohsen in this visit Goals Goal Associated Problem Outcome Goal Met? Visit Notes Measure vital signs during every home health visit during episode of care Description: Home tape making machine operator to measure vital signs during every home [...] a copy of all lab results to [facility] at [phone] Fax also to Liver Transplant [phone] Problem:Need to Collect Specimen Sample Completed Tacrolimus level, GGT, CBC/diff, CMP obtained via PICC per protocol and specimen to laboratory. Instruct on IV complications Description: Instruct patient/caregiver on how to manage breaks in line, signs/symptoms of complications, who to contact for complications and how to contact the nurse, MD and infusion service Problem:Safety concerns Completed Patient expressed appropriate understanding Dressing change Description: Skilled Nurse to instruct [...] Prevention Goal:Verbalize signs of infection Completed Patient expressed appropriate understanding Aspects of Care Description: Instruct patient/caregiver on universal precautions and home infection control measures Problem:Infection Prevention Goal:Verbalize signs of infection Completed Patient expressed appropriate understanding Educate Family on Infection Prevention Description: Instructed family on signs and symptoms of infection IE: fever, odor, change in color, increased amount of drainage, purulent drainage, warmth. Problem:Infection Prevention Goal:Verbalize signs of infection Scheduled Assess safety Description: Assess patient safety Problem:Safety concerns Goal:Demonstrate use of safety precautions Completed Patient is safe at home. Instruct Fall Prevention Description: Instruct patient/caregiver in methods to prevent falls Problem:Safety concerns Goal:Demonstrate use of safety precautions Scheduled documented in this encounter Care Teams Examination Proctor Relationship Specialty Start Date End Date Guero Colunga DO PCP - General Internal Medicine 03/22/19 04/18/23 Amber Montesinos RN Popcorn Candy Maker Transplant 11/17/19 Jil Duncan MD Consulting Physician Infectious Diseases 01/10/20 Anita Gillespie MD Medical Oncologist/Gleason Gear Generator Medical Oncology 10/07/20 Tabitha Hurley MD [address] [facility] [address] [address] Consulting Physician Rheumatology 10/22/21 documented as of this encounter
--- OUTSIDE RECORDS SUMMARY | 2024-10-28 06:14 | XMS_ITS | Encounter Summary ---
Author Organization [facility] Healthcare Address [address] [place] [address] Care Team Providers Care Working Manager Name Role Phone Guero Colunga Primary Care Provider [phone] Amber Montesinos RN Unavailable [phone] Jil Duncan MD Unavailable [phone] Anita Gillespie MD Unavailable [phone] Tabitha Hurley MD Unavailable [phone] Encounter Details Date Type Department Care Team (Late st Contact Info) Description 12/25/2021 6:05 PM CHANNEL SUPERVISOR Lab [address] [address] Frequent sinus infections Social History Tobacco Use Types Packs/Day Years [...] on file Legal Sex Male 6:28 AM CHANNEL SUPERVISOR Gender Identity Not on file Sexual [...] AND ANAEROBIC CULTURE AND GRAM STAIN Routine 12/25/2021 9:56 AM CHANNEL SUPERVISOR Frequent sinus infections documented in this encounter Results * (ABNORMAL) Aerobic and anaerobic culture and gram stain Wound Sinus (12/25/2021 9:56 AM CHANNEL SUPERVISOR) Direct Specimen Exam Stain: Few polymorphonuclear leukocytes seen. Few Gram Negative Bacilli [facility] Report Final Report: Moderate Haemophilus influenzae , Beta lactamase negative Few Mixed microorganisms. (.) [facility] Organism MIXED MICROORGANISMS. [facility] Organism HAEMOPHILUS INFLUENZAE [facility] Wound (Sinus) 12/25/2021 9:5 6 AM CHANNEL SUPERVISOR 12/25/2021 7:26 PM CHANNEL SUPERVISOR Narrative [facility] - 12/29/2021 1:04 PM CHANNEL SUPERVISOR Right middle meatus Specimen received on an ESwab. Testing performed by [facility] ([phone]) Specimens submitted from normally sterile body sites [...] - GEN ERAL ORDERABLES Final Result [facility] Department of Laboratories [place] [address] documented in this encounter Visit Diagnoses Diagnosis Frequent sinus infections documented in this encounter Care Teams Working Manager Relationship Specialty Start Date End Date Guero Colunga DO PCP - General Internal Medicine 03/22/19 04/18/23 Amber Montesinos, RN Drilling Assistant Transplant 11/17/19 Jil Duncan MD Consulting Physician Infectious Diseases 01/10/20 Anita Gillespie MD Medical Oncologist/Benefits Officer Medical Oncology 10/07/20 Tabitha Hurley MD [address] [facility] [address] [place] [address] Consulting Physician Rheumatology 10/22/21 documented as of this encounter
--- OUTSIDE RECORDS SUMMARY | 2024-10-28 06:14 | XMS_ITS | Encounter Summary ---
Author Organization [facility] Home Care Servic es Address [address] [place] [address] Phone Care Team Providers Care Appeals Representative Name Role Phone Guero Colunga Primary Care Provider [phone] Amber Montesinos RN Unavailable [phone] Jil Duncan MD Unavailable [phone] Anita Gillespie MD Unavailable [phone] Tabitha Hurley MD Unavailable [phone] Reason for Visit * Auth/Cert Specialty Diagnoses / Procedures Referred By Contac t Referred To Contact Referral ID Status Reason Start Date Expiration Date Visits Re quested Visits Authorized [id number] 1 1 Encounter Details Date Type Department Care Team (Late st Contact Info) Description 01/02/[address] [facility] Home Health - [address] [place] [address] Juanita Martin RN TRAVEL SCREENING CASE COMMUNICATION Social History Tobacco [...] on file Legal Sex Male 6:28 AM CHAIR MAKER Gender Identity Not on file Sexual Orientation Straight 08/22/2021 9: 23 AM CDT documented as of this encounter Plan of Treatment Scheduled Procedures Name Priority Associated Diagnoses Date/Ti me COLONOSCOPY Encounter for screening for colorectal cancer in high risk patient Family history of rectal cancer documented as of this encounter Visit Diagnoses Not on filedocumented in this encounter Care Teams Appeals Representative Relationship Specialty Start Date End Date Guero Colunga DO PCP - General Internal Medicine 03/22/19 04/18/23 Amber Montesinos, SHAILESH Maintenance Equipment Operator Transplant 11/17/19 Jil Duncan MD Consulting Physician Infectious Diseases 01/10/20 Anita Gillespie MD Medical Oncologist/Dehydrator Tender Medical Oncology 10/07/20 Tabitha Hurley MD [address] [facility] [address] [facility] [address] [place] [address] Consulting Physician Rheumatology 10/22/21 documented as of this encounter
--- OUTSIDE RECORDS SUMMARY | 2024-10-28 06:14 | XMS_ITS | Encounter Summary ---
Author Organization [facility] Home Care Servic es Address [address] [place] [address] Phone Care Team Providers Care Business Services Analyst Name Role Phone Guero Colunga Primary Care Provider [phone] Amber Montesinos RN Unavailable [phone] Jil Duncan MD Unavailable [phone] Anita Gillespie MD Unavailable [phone] Tabitha Hurley MD Unavailable [phone] Reason for Visit * Auth/Cert Specialty Diagnoses / Procedures Referred By Contac t Referred To Contact Referral ID Status Reason Start Date Expiration Date Visits Re quested Visits Authorized [id number] 1 1 Encounter Details Date Type Department Care Team (Late st Contact Info) Description 12/27/2021 8:30 AM CYBER CRIME INVESTIGATOR Home Care Visit [facility] Home Health [address] [place] [address] Lesvia Conde, IT INVESTMENT/PORTFOLIO MANAGER [address] [place] [address] SN HOME VISIT Social History Tobacco Use [...] on file Legal Sex Male 6:28 AM CYBER CRIME INVESTIGATOR Gender Identity Not on file Sexual Orientation Straight 08/22/2021 9: 23 AM CDT documented as of this encounter Last Filed Vital Signs Vital Sign Reading Time Taken Comments Blood Pressure 100/70 12/27/2021 8:47 AM CYBER CRIME INVESTIGATOR Pulse 76 12/27/2021 8:47 AM CYBER CRIME INVESTIGATOR Temperature 36.6 ??C (97.8 ??F) 12/27/2021 8:47 AM CS T Respiratory Rate 18 12/27/2021 8:47 AM CYBER CRIME INVESTIGATOR Oxygen Saturation 98% 12/27/2021 8:47 AM CYBER CRIME INVESTIGATOR Inhaled Oxygen Concentration - - Weight 55.8 kg (123 lb) 12/27/2021 8:47 AM CYBER CRIME INVESTIGATOR Height 172.7 cm (5' 8 ) 12/27/2021 8:47 AM CYBER CRIME INVESTIGATOR Body Mass Index 18.7 12/27/2021 8:47 AM CYBER CRIME INVESTIGATOR documented in this encounter Plan of Treatment [...] Dose Rate Site 0.9 % sodium chloride ([facility] sodium chloride 0.9%) injection 10 mL, intravenous, As needed, line care, Starting on 12/27/21 at 0953, Indications: line patencyIndications:line patency Given 12/27/2021 8:15 AM CYBER CRIME INVESTIGATOR 10 mL heparin lock flush, porcine, 10 unit/mL solution 5 mL, intravenous, As needed, line patency, Starting on 12/27/21 at 0953, Indications: Maintain Patency of Indwelling Vascular CatheterIndications:Maintain Patency of Indwelling Vascular Catheter Given 12/27/2021 8:15 AM CYBER CRIME INVESTIGATOR 5 mL documented in this encounter Home Health Visit - Care Plan Visit Details Visit Type -SN Home Visit Discipline -Half-Way Problems Problem Description Start Date Status Goals Interventions Medications Disciplines: Half-Way Management of IV Medications 12/20/2021 Active - 1 problem intervention scheduled/documen mohsen in this visit Safety concerns Disciplines: Half-Way Safety needs related to infusion administration 12/20/2021 Active - 1 problem intervention scheduled/documen mohsen in this visit Learning/Teachin g Needs - IV Therapy Disciplines: Half-Way Teaching and learning needs for performing home IV therapy 12/20/2021 Active - 6 problem interventions scheduled/documen mohsen in this visit Monitor patient's vital signs every home health visit Disciplines: SN, PT, OT, THIRD COOK, CREW LEADER GLUING, Skilled Disciplines Monitor patient's vital signs every [...] visit during episode of care Description: Home physician vice president to measure vital signs during every home [...] allergies, and potential complications. Problem:Medications Completed Instruct patient in medication administration, purpose, dosages, preparation, scheduling, side effects, food/drug interactions, storage, drug allergies, and potential complications. Patient verbalizes understanding. Instruct on IV complications Description: Instruct patient/caregiver on how to manage breaks in line, signs/symptoms of complications, who to contact for complications and how to contact the nurse, MD and infusion service Problem:Safety concerns Completed Instruct patient on what signs and symptoms of any complications associated with Picc line. Picc line requires careful care and monitoring for complications, including but not limited to, bleeding, damage to veins in arm, blood clots, infection a blocked or broken Picc line. Patient verbalized understanding. Instruct on IV supplies Description: Instruct patient/caregiver in how to gather supplies, how to restock IV supplies in the home, prepare supplies, administer IV medication and disconnect IV medication, inspecting solution and supplies before infusing, and waste disposal. Problem:Learning/Tea anita Needs - IV Therapy Completed Instruct patient in how to gather supplies, how to restock IV supplies in the home, prepare supplies, administer IV medication and disconnect IV medication, inspecting solution and supplies before infusing, and waste disposal. Patient verbalizes understanding. Instruct Infection Prevention Description: Instruct patient/caregiver in strategies to prevent infection. Instruct patient/caregiver on how to recognize signs and symptoms of infection and when to notify HH nurse and/or physician. Problem:Learning/Tea anita Needs - IV Therapy Completed Instruct patient on signs and symptoms of infection IE: fever, odor, change in color, increased amount of drainage, purulent drainage, warmth. Patient verbalizes understanding. IV Administration Description: Skilled Nurse to instruct patient/caregiver on how to properly administer medication saline and heparin. Skilled Nurse to instruct patient/caregiver to administer IV medication as ordered including saline and heparin flushes. Reason for Therapy: IV Gancyclovir. Problem:Learning/Tea anita Needs - IV Therapy Completed Patient will demonstrate ability to safely perform administration of IV by return demonstration. Patient will demonstrate ability to correctly perform flushing technique of saline and heparin using the sash method throughout the treatment episode. Dressing change Description: Skilled Nurse to instruct patient/caregiver on dressing change frequency. Weekly IV site dressing changes to be performed if no issues. Securement device to be used with appropriate lines. Skilled Nurse to instruct patient/caregiver on the purpose of doing measurements of line migration and arm circumference weekly and PRN. Type of line: PICC Problem:Learning/Tea anita Needs - IV Therapy Completed Dressing was not due to be scheduled. IV Access Care/Maintenance Description: Skilled Nurse to [...] of each line upon completion of infusion/flushes. Problem:Learning/Tea anita Needs - IV Therapy Completed Skilled Nurse to change line dressing change within 48 hours if there is gauze under the occlusive dressing, dressing is soiled, or non-occlusive. Weekly IV site dressing changes to be performed if no issues.Skilled Nurse to place disinfecting caps to the end of each line upon completion of infusion/flushes. Patient verbalizes understanding. Instruct on IV flush Description: Instruct patient/caregiver in how to perform flushing of IV line according to MD orders or protocol. Problem:Learning/Tea anita Needs - IV Therapy Completed Instruct patient n how to perform flushing of IV line according to MD orders or protocol. Patient verbalizes understanding. Monitor Vital Signs Description: Monitor blood pressure, pulse, oxygen saturation, respirations Problem:Monitor patient's vital signs every home health visit Goal:Measure vital signs during every home health visit during episode of care Completed Monitor blood pressure, pulse, oxygen saturation, respirations. Educate Patient on Infection Prevention Description: Instruct patient on signs and symptoms of infection IE: fever, odor, change in color, increased amount of drainage, purulent drainage, warmth. Problem:Infection Prevention Goal:Verbalize signs of infection Completed Instruct patient on signs and symptoms of infection IE: fever, odor, change in color, increased amount of drainage, purulent drainage, warmth. Patient verbalizes understanding. Educate Family on Infection Prevention Description: Instructed family on signs and symptoms of infection IE: fever, odor, change in color, increased amount of drainage, purulent drainage, warmth. Problem:Infection Prevention Goal:Verbalize signs of infection Completed Instructed family on signs and symptoms of infection IE: fever, odor, change in color, increased amount of drainage, purulent drainage, warmth. Family verbalizes understanding. Instruct Fall Prevention Description: Instruct patient/caregiver in methods to prevent falls Problem:Safety concerns Goal:Demonstrate use of safety precautions Completed Instruct patient/caregiver in methods to prevent falls. Patient verbalizes understanding. Assess safety Description: Assess patient safety Problem:Safety concerns Goal:Demonstrate use of safety precautions Completed Assess patient safety documented in this encounter Home Health Visit - Actions and Narratives Actions Labs and Medication review Message sent to Cindy scallop binder [facility] regarding Tacrolimus medication schedule change. documented in this encounter Care Teams Business Services Analyst Relationship Specialty Start Date End Date Guero Colunga DO PCP - General Internal Medicine 03/22/19 04/18/23 Amber Montesinos, RN Video Player Mechanic Transplant 11/17/19 Jil Duncan MD Consulting Physician Infectious Diseases 01/10/20 Anita Gillespie MD Medical Oncologist/Cold Header Operator Medical Oncology 10/07/20 Tabitha Hurley MD [address] [facility] [address] [place] [address] Consulting Physician Rheumatology 10/22/21 documented as of this encounter
--- OUTSIDE RECORDS SUMMARY | 2024-10-28 06:14 | XMS_ITS | Encounter Summary ---
Author Organization [facility] Home Care Servic es Address [address] [place] [address] Phone Care Team Providers Care Salesperson Yard Goods Name Role Phone Guero Colunga Primary Care Provider [phone] Amber Montesinos RN Unavailable [phone] Jil Duncan MD Unavailable [phone] Anita Gillespie MD Unavailable [phone] Tabitha Hurley MD Unavailable [phone] Reason for Visit * Auth/Cert Specialty Diagnoses / Procedures Referred By Contac t Referred To Contact Referral ID Status Reason Start Date Expiration Date Visits Re quested Visits Authorized [id number] 1 1 Encounter Details Date Type Department Care Team (Late st Contact Info) Description 12/21/2021 Home Care Visit [facility] Home Health - [address] [address] [address] [place] [address] Parish Vyas, HOSPITALITY HOUSEKEEPER SCREENING CASE COMMUNICATION Social History Tobacco Use [...] on file Legal 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 Gender Identity Not on file Sexual Orientation Straight 08/22/2021 9: 23 AM CDT documented as of this encounter Plan of Treatment Scheduled Procedures Name Priority Associated Diagnoses Date/Ti me COLONOSCOPY Encounter for screening for colorectal cancer in high risk patient Family history of rectal cancer documented as of this encounter Visit Diagnoses Not on filedocumented in this encounter Care Teams Salesperson Yard Goods Relationship Specialty Start Date End Date Guero Colunga DO PCP - General Internal Medicine 03/22/19 04/18/23 Amber Montesinos, SHAILESH Ticket Sorter Transplant 11/17/19 Jil Duncan MD Consulting Physician Infectious Diseases 01/10/20 Anita Gillespie MD Medical Oncologist/Tool Designer Medical Oncology 10/07/20 Tabitha Hurley MD [address] [facility] [address] [place] [address] Consulting Physician Rheumatology 10/22/21 documented as of this encounter
--- OUTSIDE RECORDS SUMMARY | 2024-10-28 06:14 | XMS_ITS | Encounter Summary ---
Author Organization [facility] Address [address] [place] [address] Phone Care Team Providers Care Loom Mechanic Name Role Phone Guero Colunga DO Primary Care Provider [phone] Amber Montesinos RN Unavailable [phone] Jil Duncan MD Unavailable [phone] Anita Gillespie MD Unavailable [phone] Tabitha Hurley MD Unavailable [phone] Encounter Details Date Type Department Care Team (Latest Contact Info) Description 01/05/2022 8:20 AM CARBOY FILLER Telemedicine [facility] Infectious Diseases [address] [place] [address] [address] [place] [address] Lisandra Auguste, ADJUNCT LATIN PROFESSOR [address] [place] [address] [address] [place] [address] Cytomegalovirus infection, unspecified cytomegaloviral infection type (HCC) [...] on file Legal Sex Male 6:28 AM CARBOY FILLER Gender Identity Not on file Sexual Orientation Straight 08/22/2021 9: 23 AM CDT documented as of this encounter Progress Notes * Lisandra Auguste, AIDEN - 01/05/2022 8:20 AM CST Infectious Disease Return Visit Patient Name: Beka Nichols [facility] INFECTIOUS DISEASES [address] [place] [id number] Subjective Chief complaint of CMV viremia HPI: Beka Nichols is a 26 y.o. male with a history of refractor [...] [place] [address]. He was also noted to have lymphadenopathy [...] ganciclovir 12/20/21. Interval History: Telephone visit completed with patient today. He reports overall doing well since last visit. A fewweeks ago he reported some diarrhea but he states this has significantly improved since started on IV ganciclovir. He denies any abdominal pain, fevers, chills, vomiting, or nausea. No issues issues with IV medications or PICC line. Since last visit he was also seen by ENT for sinus infection for which he underwent scope in office with cultures showing mixed organisms and Haemophilus influenzae. He was given Augmentin initially and then switched to bactrim and reports improvement in symptoms. Organism: CMV Site of infection: blood Current antiviral therapy: Ganciclovir 285 mg IV Q12H Antiviral start date: 12/20/21 Compliance with antivirals: missed 0 doses. The patient has completed 2.5 weeks of IV antiviral therapy. IV access: left arm PICC Line issues: none Adverse effects from antiviral therapy: none ROS: Review of Systems Constitutional: Negative for activity change, appetite change, chills, diaphoresis, fatigue, fever and unexpected weight change. Gastrointestinal: Positive for diarrhea (improving). Negative for abdominal pain, nausea and vomiting. [...] Immunocompromised patient (CMS/HCC) (HCC) ??? Lymphadenopathy ??? correction current use of immunosuppressive drug ??? 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HCC) ??? Fever ??? Elevated LFTs ??? On antiviral therapy ??? Myalgia ??? Muscle weakness Allergies: Patient has no known allergies. HOME MEDICATIONS : 0.9 % sodium chloride [facility] 0.[facility] injection ganciclovir (CYTOVENE) 500 mg injection heparin lock flush, porcine, 10 unit/mL solution sulfamethoxazole-trimethoprim (Bactrim DS) 800-160 mg per tablet tacrolimus (PROGRAF) 0.5 mg immediate-release capsule traZODone (DESYREL) 50 mg tablet ursodioL (ACTIGALL) 300 mg capsule valGANciclovir (VALCYTE) 450 mg tablet Lab/Microbiology/Radiology/Diagnostic Review: Laboratory: Lab Results Component Value Date WBC 10.3 (H) 01/03/2022 HGB 12.2 (L) 01/03/2022 HCT 34.0 (L) 01/03/2022 MCV 97.1 (H) 01/03/2022 LABPLAT 113 (L) 01/03/2022 Lab Results Component Value Date NEUTROABS 2.7 01/03/2022 Lab Results Component Value Date GLUCOSE 80 01/03/2022 CALCIUM 8.6 01/03/2022 SODIUM 140 01/03/2022 POTASSIUM 4.1 01/03/2022 CO2 24 01/03/2022 CHLORIDE 107 01/03/2022 BUNSER 8 01/03/2022 CREATININE 0.70 (L) 01/03/2022 Estimated Creatinine Clearance: 124 mL/min (A) (by C-G formula based on SCr of 0.7 mg/dL (L)). Lab Results Component Value Date ALT 38 01/03/2022 AST 56 (H) 01/03/2022 ALKPHOS 346 (H) 01/03/2022 BILITOT 1.7 (H) 01/03/2022 CMV labs: 10/01/21: 33263 10/18/21: 4454 11/08/21: 3397 11/15/21: 4034 11/22/21: 2166 11/29/21: 1593 12/06/21: 2298 12/13/21: 909 12/20/21: 514 12/27/21: 569 01/03/22: 523 Assessment/Plan 26 y.o. 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 Cytomegalovirus infection (CMS/HCC) - Remains on IV ganciclovir with no acute issues. Previously had diarrhea but this is improving. Nosystemic signs of infection. Labs show decreasing CMV viral load. He has had low platelets but I donot feel this is likely related to ganciclovir [...] questions or concerns Follow up: - Return in about 6 weeks (around 02/16/2022) for phone visit. Visit Diagnosis: 1. Cytomegalovirus infection, unspecified cytomegaloviral infection type (HCC) The supervising MD present in the office suite for Nurse Practitioner is Dr. Gay This was a telemedicine visit with Beka howell which took place via Telephone Other - patient/provider preference. During the visit, I was located in the office and the patient was located at home in the state of [place]. The patient visit started at 0820 and ended at 08. My total encounter time on 01/05/2022 was 15 minutes which was spent in [...] or video visit during the COVID-[address] [facility] emergencywas explained to them. After being given an opportunity to ask questions about and discuss this type of visit, they verbally consented to proceeding with the telephone/video visit and understand thatthis service replaces an office visit. OY FILLER documented in this encounter Miscellaneous Notes * Assessment & Plan Note - Lisandra Auguste NP - 01/05/2022 12:57 PM CARBOY FILLER Associated Problem(s): Cytomegalovirus infection (HCC) - Remains on IV ganciclovir with no acute issues. Previously had diarrhea but this is improving. Nosystemic signs of infection. Labs show decreasing CMV viral load. He has had low platelets but I donot feel this is likely related to ganciclovir [...] ID clinic with any questions or concerns OY FILLER documented in this encounter Plan of Treatment Scheduled Procedures Name Priority Associated Diagnoses Date/Ti me COLONOSCOPY Encounter for screening for colorectal cancer in high risk patient Family history of rectal cancer documented as of this encounter Visit Diagnoses Diagnosis Cytomegalovirus infection, unspecified cytomegaloviral infection type (HCC)- Primary documented in this encounter Care Teams Loom Mechanic Relationship Specialty Start Date End Date Guero Colunga DO PCP - General Internal Medicine 03/22/19 04/18/23 Amber Montesinos, RN Staff Command And Control Officer Transplant 11/17/19 Jil Duncan MD Consulting Physician Infectious Diseases 01/10/20 Anita Gillespie MD Medical Oncologist/Missile Inspector Medical Oncology 10/07/20 Tabitha Hurley MD [address] [facility] [address] [place] [address] Consulting Physician Rheumatology 10/22/21 documented as of this encounter
--- OUTSIDE RECORDS SUMMARY | 2024-10-28 06:14 | XMS_ITS | Encounter Summary ---
Author Organization [facility] Address [address] [place] [address] Care Team Providers Care Ice Skating Teacher Name Role Phone Guero Colunga Primary Care Provider [phone] Amber Montesinos RN Unavailable [phone] Jil Duncan MD Unavailable [phone] Anita Gillespie MD Unavailable [phone] Tabitha Hurley MD Unavailable Encounter Details Date Type Department Care Team (Late st Contact Info) Description 01/03/2022 12:05 PM SHANK PIECE TACKER Lab [address] [address] Social History Tobacco Use Types [...] on file Legal Sex Male 6:28 AM SHANK PIECE TACKER Gender Identity Not on file Sexual Orientation [...] CYTOMEGALOVIRUS (CMV) DNA, QUANT GEN LAB Routine 01/03/2022 8:15 AM SHANK PIECE TACKER GLUCOSE, RANDOM (OUTREACH) Routine 01/03/2022 8:15 AM SHANK PIECE TACKER EGFR Routine 01/03/2022 8:15 AM SHANK PIECE TACKER TACROLIMUS LEVEL, TROUGH Routine 01/03/2022 8:15 AM SHANK PIECE TACKER COMPREHENSIVE METABOLIC PANEL WITHOUT GLUCOSE (OUTREACH) Routine 01/03/2022 8:15 AM SHANK PIECE TACKER CBC WITH AUTO DIFFERENTIAL Routine 01/03/2022 8:15 AM SHANK PIECE TACKER MANUAL DIFFERENTIAL Routine 01/03/2022 8 :15 AM SHANK PIECE TACKER GAMMA GT Routine 01/03/2022 8:15 AM SHANK PIECE TACKER documented in this encounter Results * (ABNORMAL) Manual Differential (01/03/2022 8:15 AM SHANK PIECE TACKER) Differential Manual [facility] Cells Counted 114 [facility] Neutrophil abs 2.7 1.7 - 6.5 K/cumm [facility] Imm gran abs 0.0 0.0 - 0.1 K/cumm [facility] Lymphocyte abs 5.2(H) 0.8 - 3.3 K/cumm [facility] Monocyte abs 1.7(H) 0.2 - 0.8 K/cumm [facility] Eosinophil abs 0.6(H) 0.0 - 0.5 K/cumm [facility] Basophil abs 0.1 0.0 - 0.1 K/cumm [facility] Neutrophil pct 26.3 % [facility] Comment: Interpretive Data Percent cell count reference ranges are not reported, since discordance with absolute values may lead to misinterpretation of CBC data. Current Interpretive Data was last revised on 2018. Lymphocyte pct 49.9 % [facility] Comment: Interpretive Data Percent cell count reference ranges are not reported, since discordance with absolute values may lead to misinterpretation of CBC data. Current Interpretive Data was last revised on 2018. Monocyte pct 16.7 % [facility] Comment: Interpretive Data Percent cell count reference ranges are not reported, since discordance with absolute values may lead to misinterpretation of CBC data. Current Interpretive Data was last revised on 2018. Eosinophil pct 5.3 % [facility] Comment: Interpretive Data Percent cell count reference ranges are not reported, since discordance with absolute values may lead to misinterpretation of CBC data. Current Interpretive Data was last revised on 2018. Basophil pct 0.9 % [facility] Comment: Interpretive Data Percent cell count reference ranges are not reported, since discordance with absolute values may lead to misinterpretation of CBC data. Current Interpretive Data was last revised on 2018. Variant lymph pct 0.9 % [facility] Blood 01/03/2022 8:15 AM SHANK PIECE TACKER 01/03/2022 12:27 PM SHANK PIECE TACKER us Ige Sonido Duncan MD LAB BLOOD ORDERABLES Final Result [facility] [place] [address] * eGFR (01/03/2022 8:15 AM SHANK PIECE TACKER) eGFR >90 90 - 130 mL/min/1. 73 m2 [facility] Comment: Interpretive Data Reference Interval Normal [...] interpretive data was last reviewed 2021. Blood 01/03/2022 8:15 AM SHANK PIECE TACKER 01/03/2022 12:24 PM SHANK PIECE TACKER Ige Sonido Duncan MD LAB BLOOD ORDERABLES Final Result [facility] [place] [address] * (ABNORMAL) Cytomegalovirus (CMV) DNA PCR, quantitative Blood (01/03/2022 8:15 AM SHANK PIECE TACKER) [facility] CMV DNA Detected( A) [facility] Comment: Interpretive Data: The quantifiable range of this assay is 34 IUnits/mL to 10,000,000 IUnits/mL (1.53 log IUnits/mL to 7.0 log IUnits/mL). Testing was performed by the NIA 6800 CMV Test ([employer] Testing performed at [facility]. Current interpretive data was last revised on 2021. CMV DNA IU/mL 523 IUnits/mL [facility] CMV DNA log IU/mL 2.72 log IUnits/mL [facility] Blood 01/03/2022 8:15 AM SHANK PIECE TACKER 01/03/2022 12:34 PM SHANK PIECE TACKER Jil Duncan MD LAB MICROBIOLOGY - GENERAL ORDERABLES Final Result Performing Organization Address [facility] [place] [place] [address] * (ABNORMAL) Gamma GT (01/03/2022 8:15 AM SHANK PIECE TACKER) GGT 112(H) 10 - 50 Units/L [facility] Blood 01/03/2022 8:15 AM SHANK PIECE TACKER 01/03/2022 12:06 PM SHANK PIECE TACKER iJl Duncan MD LAB BLOOD ORDERABLES Final Result Performing Organization Address [facility] [place] [address] * Tacrolimus level trough (01/03/2022 8:15 AM SHANK PIECE TACKER) [facility] Tacrolimus trough 5.0 ng/mL [facility] Comment: Interpretive Data Testing performed by liquid chromatography-tandem mass spectrometry. ??Therapeutic concentrations vary depending on type of transplanted organ and time elapsed since transplant. ??Typical trough concentrations range from 5-15 ng/mL. ??This test was developed and its performance characteristics determined by the [facility] consistent with CLIA requirements. ??This test has not been cleared or approved by the [place] Food and Drug administration. ??Current interpretive data last reviewed 2020. Blood 01/03/2022 8:15 AM SHANK PIECE TACKER 01/03/2022 12:08 PM SHANK PIECE TACKER Jil Duncan MD LAB BLOOD ORDERABLES Final Result Performing Organization Address [facility] Co de Phone Number [facility] [place] [address] * (ABNORMAL) CBC with auto differential (01/03/2022 8:15 AM SHANK PIECE TACKER) Pathologist [facility] WBC 10.3(H) 3.8 - 9.9 K/cumm [facility] Hgb 12.2(L) 13.0 - 17.5 g/dL [facility] Hct 34.0(L) 38.9 - 50.3 % [facility] Plt 113(L) 150 - 400 K/cumm [facility] MPV 11.9 9.1 - 12.3 fL [facility] RBC 3.50(L) 4.30 - 5.80 M/cumm [facility] MCV 97.1(H) 81.3 - 96.4 fL [facility] MCH 34.9(H) 27.1 - 33.3 pg [facility] MCHC 35.9(H) 32.3 - 35.7 g/dL [facility] RDW CV 17.0(H) 11.1 - 14.9 % [facility] RDW SD 60.5(H) 35.7 - 48.1 fL [facility] NRBC abs 0.00 0.00 - 0.01 K/cumm [facility] Blood 01/03/2022 8:15 AM SHANK PIECE TACKER 01/03/2022 12:07 PM SHANK PIECE TACKER us Ige Sonido Duncan MD LAB BLOOD ORDERABLES Final Result [facility] Department [place] [address] * Glucose, random (Outreach) (01/03/2022 8:15 AM SHANK PIECE TACKER) Glucose 80 70 - 199 mg/dL [facility] [...] interpretive data was last revised 2017. Blood 01/03/2022 8:15 AM SHANK PIECE TACKER 01/03/2022 12:06 PM SHANK PIECE TACKER Ige Sonido Duncan MD LAB BLOOD ORDERABLES Final Result Performing Organization Address [facility] Co de Phone Number [facility] Department [place] [address] * (ABNORMAL) Comprehensive metabolic panel, without glucose (Outreach) (01/03/2022 8:15 AM SHANK PIECE TACKER) Pathologist [facility] Sodium 140 135 - 145 mmol/L [facility] Potassium, pl 4.1 3.3 - 4.9 mmol/L [facility] Chloride 107 97 - 110 mmol/L [facility] CO2 24 22 - 32 mmol/L [facility] Anion gap 9 2 - 15 mmol/L [facility] BUN 8 8 - 25 mg/dL [facility] Creatinine 0.70(L) 0.80 - 1.30 mg/dL [facility] Calcium 8.6 8.5 - 10.3 mg/dL [facility] Protein, pl 5.7(L) 6.5 - 8.5 g/dL [facility] Albumin 3.4(L) 3.5 - 5.0 g/dL [facility] Bilirubin, total 1.7(H) 0.1 - 1.2 mg/dL [facility] Alk phos 346(H) 40 - 130 Units/L [facility] AST 56(H) 10 - 50 Units/L [facility] ALT 38 7 - 55 Units/L [facility] Blood 01/03/2022 8:15 AM SHANK PIECE TACKER 01/03/2022 12:06 PM SHANK PIECE TACKER Jil Duncan MD LAB BLOOD ORDERABLES Final Result Performing Organization Address City/[facility]/ZIP Co de Phone Number [facility] One [facility] Department [place] [address] documented in this encounter Visit Diagnoses Not on filedocumented in this encounter Care Teams Ice Skating Teacher Relationship Specialty Start Date End Date Guero Colunga DO PCP - General Internal Medicine 03/22/19 04/18/23 Amber Montesinos, SHAILESH Tent Worker Transplant 11/17/19 Jil Duncan MD Consulting Physician Infectious Diseases 01/10/20 Anita Gillespie MD Medical Oncologist/Plugger Man Medical Oncology 10/07/20 Tabitha Hurley MD [address] [facility] [address] [place] [address] Consulting Physician Rheumatology 10/22/21 documented as of this encounter
--- OUTSIDE RECORDS SUMMARY | 2024-10-28 06:14 | XMS_ITS | Encounter Summary ---
Author Organization [facility] Healthcare Address [address] [place] [address] Care Team Providers Care Cut Off Saw Operator Metal Name Role Phone Guero Colunga Primary Care Provider [phone] Amber Montesinos RN Unavailable [phone] Jil Duncan MD Unavailable [phone] Anita Gillespie MD Unavailable [phone] Tabitha Hurley MD Unavailable [phone] Encounter Details Date Type Department Care Team (Late st Contact Info) Description 12/20/2021 11:15 AM CAD SPECIALIST Lab [address] [address] Social History Tobacco Use Types [...] on file Legal Sex Male 6:28 AM CAD SPECIALIST Gender Identity Not on file Sexual [...] CYTOMEGALOVIRUS (CMV) DNA, QUANT GEN LAB Routine 12/20/2021 8:30 AM CAD SPECIALIST GLUCOSE, RANDOM (OUTREACH) Routine 12/20/2021 8:30 AM CAD SPECIALIST EGFR Routine 12/20/2021 8:30 AM CAD SPECIALIST DIFFERENTIAL AUTO Routine 12/20/2021 8:3 0 AM CAD SPECIALIST TACROLIMUS LEVEL, TROUGH Routine 12/20/2021 8:30 AM CAD SPECIALIST COMPREHENSIVE METABOLIC PANEL WITHOUT GLUCOSE (OUTREACH) Routine 12/20/2021 8:30 AM CAD SPECIALIST CBC WITH AUTO DIFFERENTIAL Routine 12/20/2021 8:30 AM CAD SPECIALIST GAMMA GT Routine 12/20/2021 8:30 AM CAD SPECIALIST documented in this encounter Results * eGFR (12/20/2021 8:30 AM CAD SPECIALIST) Pathologist [facility] eGFR >90 90 - 130 mL/min/1. 73 [...] interpretive data was last reviewed 2021. Blood 12/20/2021 8:30 AM CAD SPECIALIST 12/20/2021 11:19 AM CAD SPECIALIST Ige Sonido Duncan MD LAB BLOOD ORDERABLES Final Result Performing Organization Address City/[facility]/ZIP Co de Phone Number [facility] [place] [email or web address] [address] * (ABNORMAL) Cytomegalovirus (CMV) DNA PCR, quantitative Blood (12/20/2021 8:30 AM CAD SPECIALIST) [facility] CMV DNA Detected( A) [facility] Comment: Interpretive Data: The quantifiable range of this assay is 34 IUnits/mL to 10,000,000 IUnits/mL (1.53 log IUnits/mL to 7.0 log IUnits/mL). Testing was performed by the NIA 6800 CMV Test ([employer] Testing performed at [facility]. Current interpretive data was last revised on 2021. CMV DNA IU/mL 514 IUnits/mL [facility] CMV DNA log IU/mL 2.71 log IUnits/mL [facility] Blood 12/20/2021 8:30 AM CAD SPECIALIST 12/20/2021 11:27 AM CAD SPECIALIST Ige Sonido Duncan MD LAB MICROBIOLOGY - GENERAL ORDERABLES Final Result Performing Organization Address City/[facility]/ZIP Co de Phone Number [facility] [place] [email or web address] [address] * (ABNORMAL) Differential, auto (12/20/2021 8:30 AM CAD SPECIALIST) Neutrophil abs 2.9 1.7 - 6.5 K/cumm [facility] Imm gran abs 0.0 0.0 - 0.1 K/cumm [facility] Lymphocyte abs 3.4(H) 0.8 - 3.3 K/cumm [facility] Monocyte abs 1.6(H) 0.2 - 0.8 K/cumm [facility] Eosinophil abs 0.0 0.0 - 0.5 K/cumm [facility] Basophil abs 0.0 0.0 - 0.1 K/cumm [facility] Neutrophil pct 36.5 % [facility] Comment: Interpretive Data Percent cell count reference ranges are not reported, since discordance with absolute values may lead to misinterpretation of CBC data. Current Interpretive Data was last revised on 2018. Imm gran pct 0.5 % [facility] Comment: Interpretive Data Percent cell count reference ranges are not reported, since discordance with absolute values may lead to misinterpretation of CBC data. Current Interpretive Data was last revised on 2018. Lymphocyte pct 42.3 % [facility] Comment: Interpretive Data Percent cell count reference ranges are not reported, since discordance with absolute values may lead to misinterpretation of CBC data. Current Interpretive Data was last revised on 2018. Monocyte pct 19.7 % [facility] Comment: Interpretive Data Percent cell count reference ranges are not reported, since discordance with absolute values may lead to misinterpretation of CBC data. Current Interpretive Data was last revised on 2018. Eosinophil pct 0.5 % [facility] Comment: Interpretive Data Percent cell count reference ranges are not reported, since discordance with absolute values may lead to misinterpretation of CBC data. Current Interpretive Data was last revised on 2018. Basophil pct 0.5 % [facility] Comment: Interpretive Data Percent cell count reference ranges are not reported, since discordance with absolute values may lead to misinterpretation of CBC data. Current Interpretive Data was last revised on 2018. Blood 12/20/2021 8:30 AM CAD SPECIALIST 12/20/2021 11:14 AM CAD SPECIALIST Jil Duncan MD LAB BLOOD ORDERABLES Final Result Performing Organization Address City/[facility] Co de Phone Number [facility] Department [place] [address] * Tacrolimus level trough (12/20/2021 8:30 AM CAD SPECIALIST) [facility] Tacrolimus trough 6.2 ng/mL [facility] Comment: Interpretive Data Testing performed by liquid chromatography-tandem mass spectrometry. ??Therapeutic concentrations vary depending on type of transplanted organ and time elapsed since transplant. ??Typical trough concentrations range from 5-15 ng/mL. ??This test was developed and its performance characteristics determined by the [facility] consistent with CLIA requirements. ??This test has not been cleared or approved by the [place] Food and Drug administration. ??Current interpretive data last reviewed 2020. Blood 12/20/2021 8:30 AM CAD SPECIALIST 12/20/2021 11:14 AM CAD SPECIALIST Jil Duncan MD LAB BLOOD ORDERABLES Final Result Performing Organization Address City/[facility]/ZIP Co de Phone Number [facility] Department [place] [address] * (ABNORMAL) Gamma GT (12/20/2021 8:30 AM CAD SPECIALIST) [facility] GGT 109(H) 10 - 50 Units/L [facility] Blood 12/20/2021 8:30 AM CAD SPECIALIST 12/20/2021 11:14 AM CAD SPECIALIST Jil Duncan MD LAB BLOOD ORDERABLES Final Result Performing Organization Address [facility] Co de Phone Number [facility] [place] [address] * (ABNORMAL) CBC with auto differential (12/20/2021 8:30 AM CAD SPECIALIST) [facility] WBC 8.0 3.8 - 9.9 K/cumm [facility] Hgb 13.4 13.0 - 17.5 g/dL [facility] Hct 37.0(L) 38.9 - 50.3 % [facility] Plt 123(L) 150 - 400 K/cumm [facility] MPV 12.3 9.1 - 12.3 fL [facility] RBC 3.84(L) 4.30 - 5.80 M/cumm [facility] MCV 96.4 81.3 - 96.4 fL [facility] MCH 34.9(H) 27.1 - 33.3 pg [facility] MCHC 36.2(H) 32.3 - 35.7 g/dL [facility] RDW CV 17.6(H) 11.1 - 14.9 % [facility] RDW SD 63.0(H) 35.7 - 48.1 fL [facility] NRBC abs 0.00 0.00 - 0.01 K/cumm [facility] Blood 12/20/2021 8:30 AM CAD SPECIALIST 12/20/2021 11:14 AM CAD SPECIALIST us Ige Sonido Duncan MD LAB BLOOD ORDERABLES Final Result [facility] Department [place] [address] * Glucose, random (Outreach) (12/20/2021 8:30 AM CAD SPECIALIST) [facility] Glucose 111 70 - 199 mg/dL [facility] interpretive data was last revised 2017. Blood 12/20/2021 8:30 AM CAD SPECIALIST 12/20/2021 11:14 AM CAD SPECIALIST Ige Sonido Duncan MD LAB BLOOD ORDERABLES Final Result Performing Organization Address [facility] de Phone Number [facility] [place] [address] * (ABNORMAL) Comprehensive metabolic panel, without glucose (Outreach) (12/20/2021 8:30 AM CAD SPECIALIST) Sodium 136 135 - 145 mmol/L [facility] Potassium, pl 3.7 3.3 - 4.9 mmol/L [facility] Chloride 106 97 - 110 mmol/L [facility] CO2 21(L) 22 - 32 mmol/L [facility] Anion gap 9 2 - 15 mmol/L [facility] BUN 9 8 - 25 mg/dL [facility] Creatinine 0.76(L) 0.80 - 1.30 mg/dL [facility] Calcium 8.8 8.5 - 10.3 mg/dL [facility] Protein, pl 6.3(L) 6.5 - 8.5 g/dL [facility] Albumin 3.9 3.5 - 5.0 g/dL [facility] Bilirubin, total 1.5(H) 0.1 - 1.2 mg/dL [facility] Alk phos 328(H) 40 - 130 Units/L [facility] AST 43 10 - 50 Units/L [facility] ALT 36 7 - 55 Units/L [facility] Blood 12/20/2021 8:30 AM CAD SPECIALIST 12/20/2021 11:14 AM CAD SPECIALIST Jil Duncan MD LAB BLOOD ORDERABLES Final Result Performing Organization Address [facility]/ZIP Co de Phone Number [facility] [place] [email or web address] [address] documented in this encounter Visit Diagnoses Not on filedocumented in this encounter Care Teams Cut Off Saw Operator Metal Relationship Specialty Start Date End Date Guero Colunga DO PCP - General Internal Medicine 03/22/19 04/18/23 Amber Montesinos, RN [facility] [facility] Transplant 11/17/19 Jil Duncan MD Consulting Physician Infectious Diseases 01/10/20 Anita Gillespie MD Medical Oncologist/Finance Controller Medical Oncology 10/07/20 Tabitha Hurley MD [address] [facility] [address] [place] [address] Consulting Physician Rheumatology 10/22/21 documented as of this encounter
--- OUTSIDE RECORDS SUMMARY | 2024-10-28 06:14 | XMS_ITS | Encounter Summary ---
Author Organization [facility] Address [address] [place] [address] Phone Care Team Providers Care Truer Pinion And Wheel Name Role Phone Guero Colunga DO Primary Care Provider [phone] Amber Montesinos RN Unavailable [phone] Jil Duncan MD Unavailable [phone] Anita Gillespie MD Unavailable [phone] Tabitha Hurley MD Unavailable [phone] Reason for Referral * MRI/CAT/PET Scan (Routine) - Closed Specialty Diagnoses / Procedures Referred By Contyadiar t Referred To Contact Radiology Diagnoses Frequent sinus infections Procedures CT Sinus Stealth WO Contrast Massiel Gastelum MD [address] [place] [address] Phone: tel: fax: [address] [address] Referral ID Status Reason Start Date Expiration Date Visits Re quested Visits Authorized [id number] Closed 12/25/2021 02/08/2022 1 1 LER TECHNICIAN Reason for Visit * Reason Comments Chronic sinus For 1 year * Consultation (Routine) - Closed Specialty Diagnoses / Procedures Referred By Contac t Referred To Contact Otolaryngology Diagnoses 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) Frequent sinus infections Anita Gillespie MD Phone: tel: fax: Massiel Gastelum MD [address] [place] [address] Phone: tel: fax: Referral ID Status Reason Start Date Expiration Date V isits Requested Visits Authorized [id number] Closed Specialty Services Required 10/28/2021 11/27/2022 99 99 Encounter Details Date Type Department Care Team (Late st Contact Info) Description 12/25/2021 9:00 AM CHILLER TECHNICIAN Office Visit [facility] - [facility] ENT [address] [facility] [address]th [place] [address] [place] [id number] Massiel Gastelum MD [address] [place] [address] Frequent sinus infections (Primary Dx); 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); 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HCC); Chronic rhinitis Social History Tobacco Use Types Packs/Day Years [...] file Legal Sex Male 6:28 AM CHILLER TECHNICIAN Gender Identity Not on file Sexual Orientation Straight 08/22/2021 9: 23 AM CDT documented as of this encounter Last Filed Vital Signs Vital Sign Reading Time Taken Comments Blood Pressure 107/70 12/25/2021 8:53 AM CHILLER TECHNICIAN Pulse 77 12/25/2021 8:53 AM CHILLER TECHNICIAN Temperature - - Respiratory Rate - - Oxygen Saturation - - Inhaled Oxygen Concentration - - Weight 55.8 kg (123 lb) 12/25/2021 8:52 AM CHILLER TECHNICIAN Height 172.7 cm (5' 8 ) 12/25/2021 8:52 AM CHILLER TECHNICIAN Body Mass Index 18.7 12/25/2021 8:52 AM CHILLER TECHNICIAN documented in this encounter Patient Instructions * Patient Instructions* Massiel Gastelum MD - 12/25/2021 9:00 AM CHILLER TECHNICIAN Otolaryngology- Head and Neck Surgery Patient Instruction Sheet BUFFERED ISOTONIC SALINE NASAL IRRIGATION Recommend using twice a day Recommend using a steriod nasal spray (Flonase Sensimyst, Nasacort, or Rhinocort) daily, 2 sprays each side of the nose. Remember to aim [id number]. Benefits: ?When you irrigate, the isotonic saline (salt water) acts as a solvent and washes the mucus crusts and other debris from your nose. ?This decongests and improves the airflow into your nose.?? The sinus passages begin to open. ?Studies have also shown that a salt water and an alkaline (baking soda) irrigation solution improves nasal membrane cell function (mucociliary flow of mucus debris). Saline Solution Recipe ?Choose a 1-quart glass jar that is thoroughly cleansed. ?Fill with sterile or distilled water, or you can boil water from the tap. ?Add 1 to 2 heaping teaspoons of pickling/davin/sea salt (NOT table salt as it contains a largenumber of additives).?? This salt is available at the grocery store in the food davin section. ?Add 1 teaspoon of Arm [employer] Hammer Baking Soda (pure bicarbonate). ?Mix ingredients together and store at room temperature.?? Discard after one week.?? If you find this solution too strong, you may decrease the amount of salt added to 1 to 1 ?? teaspoons.?? With children it is often best to start with a milder solution and advance slowly.?? OR Salt packet (Neilmed or other) + distilled water/boiled tap water to fill line (240ml, 8oz) Instructions: ?Irrigate with 240 ml (8 oz) once or twice daily.?? Many people prefer to warm the solution slightly in the microwave - but be sure that the solution is NOT HOT.?? Stand over the sink (some do this in the shower) and squirt the solution into each side of your nose, keeping your mouth open. This allows you to spit the saltwater out of your mouth, if some runs into your mouth.?? It will not harm you if you swallow a little. ?If you have been told to use a nasal steroid such as Flonase, Rhinocort, Nasonex, or Nasacort, youshould always use isortonic saline solution first, then use your nasal steroid product.?? The nasalsteroid is much more effective when sprayed onto clean nasal membranes and the steroid medicine will reach deeper into the nose. ?Some people may experience a little burning sensation the first few times they use a isotonic saline solution, but this usually goes away within a few days. LER TECHNICIAN LER TECHNICIAN documented in this encounter Progress Notes * Massiel Gastelum MD - 12/25/2021 9:00 AM CST Otolaryngology New Patient or Consult Note Subjective Patient ID: Beka Nichols is a 26 y.o. male. Chief Complaint: Chief Complaint Patient presents with ??? Chronic sinus For 1 year HPI: Beka Nichols is a 26 y.o. male with h/o liver transplant, PTLD, CVID, referred by Dr. Dawson for evaluation of recurrent sinusitis. H/o recurrent/persistent sinuitis Most recently treated with antibiotic (Augmentin) in past few months, completed 2d ago, not significantly helpful. Sx include cough, post-nasal drip, sniffing, eye irritation or drainage. Intermittent thick mucus. Some nasal stuffiness, leena at night, may end up mouthbreathing. He has also been on Levaquin in the past few months. No nasal medications or allergy medication. No saline nasal spray. Uses humidifier. Has used OTC cold medication prn. Over the past year, he did well over the summer months, when fall/winter had worsened nasal symptoms. Rare nosebleed. 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 H/o nasal fracture 06/16/21. Sinus infection issues pre-date this injury. Unclear whether breathing is more difficult or not after this injury. 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 Review of Systems The patient-completed Review of Systems was reviewed and was scanned as an attachment to this encounter. Objective BP 107/70 Pulse 77 Ht 172.7 cm (5' 8 ) Wt 55.8 kg (123 lb) BMI 18.70 kg/m?? Physical Exam GENERAL: Well-developed, well-nourished. Voice [...] - EAC patent. TM intact. Middle ear aerated. Left - EAC patent. TM intact. Middle ear aerated. NOSE: External nose has no skin lesions. Nasal mucosa is Dry with overlying sticky mucus. Septum ismidline. Turbinates are normal size, sticky mucus. No purulent drainage. No polyps or masses visible on anterior rhinoscopy. ORAL CAVITY/OROPHARYNX: Normal oral vestibule without lesions, masses, or ulcerations. Oral mucosa is moist. Tongue and floor of mouth are without lesions or masses. Palate has no lesions and elevates symmetrically. Normal uvula. Tonsils are small/absent. Oropharynx is clear. NECK: No masses. Bilateral submandibular glands normal. Right submandibular scar with contour defect, consistent with prior lymph node excision. Trachea is midline. Thyroid is normal in size with no apparent nodules. HEME/LYMPHATIC: Multiple small lymph nodes, nontender, jugular digastric and posterior triangle MUSCULOSKELETAL: Ambulates without difficulty. Neck full range of motion. RESPIRATORY: Breathing comfortably without audible stridor, stertor or wheeze. Procedure: Nasal Endoscopy: Due to inadequate visualization on anterior rhinoscopy, rigid nasal endoscopy was undertaken. After topical nasal decongestant and anesthetic, the rigid nasal endoscope (R) was introduced into the right and left nasal cavity. Nasal mucosa is edematous, dry. Thick sticky mucus bilaterally. Purulent secretions not seen, though thicker mucus cultured from the right middle meatus. Nomasses or polyps. The middle turbinates and intact uncinate process are visualized bilaterally and appear normal. Spheno-ethmoid recess normal. Nasopharynx has no masses, obstructing adenoids or polyps. Thick white secretions in nasopharynx. The endoscope was removed and the patient tolerated the procedure well. Data Reviewed: Office visit from Dr. Gillespie 11/12/2021 reviewed, stable PTLD, CMV viremia followed by DENI Simental on HyQvia, h/o recurrent sinusitis Assessment/Plan 1. Frequent sinus infections 2. 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HCC) 4. Chronic rhinitis BID saline irrigation, instructed patient in use Start steroid nasal spray daily, instructed patient in use CT maxillofacial for evaluation of possible underlying persistent sinusitis Follow culture results from right middle meatus. Consider addition of topical antibiotic in nasal irrigation or systemic treatment, pending findings. Follow-up 2 months, earlier TBD MMarco Gastelum MD FACS Professor Department of Otolaryngology [facility] [employer] LER TECHNICIAN documented in this encounter Plan of Treatment Scheduled Procedures Name Priority Associated Diagnoses Date/Ti ga COLONOSCOPY Encounter for screening for colorectal cancer in high risk patient Family history of rectal cancer documented as of this encounter Results * CT Sinus Stealth [...] above. Electronically signed by: Claudine Starks M.D. Massiel Gastelum MD IM CT PROCEDURES [place] Result * (ABNORMAL) Aerobic and anaerobic culture and gram stain Wound Sinus (12/25/2021 9:56 AM CHILLER TECHNICIAN) Direct Specimen Exam Stain: Few polymorphonuclear leukocytes seen. Few Gram Negative Bacilli [facility] Report Final Report: Moderate Haemophilus influenzae , Beta lactamase negative Few Mixed microorganisms. (.) [facility] Organism MIXED MICROORGANISMS. [facility] Organism HAEMOPHILUS INFLUENZAE [facility] Wound (Sinus) 12/25/2021 9:5 6 AM CHILLER TECHNICIAN 12/25/2021 7:26 PM CHILLER TECHNICIAN Narrative [facility] - 12/29/2021 1:04 PM CHILLER TECHNICIAN Right middle meatus Specimen received on an ESwab. 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 Chronic rhinitis Frequent sinus infections Frequent sinus infections documented in this encounter Discontinued Medications Medication Sig Discontinue Reason Start Date End Da te IgG/hyaluronidase,cristhian mbinant (HYQVIA SUBQ) Inject under the skin Discontinued by another clinician 12/27/2021 documented as of this encounter Orders Outpatient Referral Count Last Ordered Date Fir st Ordered Date AMB REFERRAL TO ENT 1 12/25/2021 documented in this encounter Care Teams Truer Pinion And Wheel Relationship Specialty Start Date End Date Guero Colunga DO PCP - General Internal Medicine 03/22/19 04/18/23 Amber Montesinos, SHAILESH Ob Nurse Transplant 11/17/19 Jil Duncan MD Consulting Physician Infectious Diseases 01/10/20 Anita Gillespie MD Medical Oncologist/Project Lead Medical Oncology 10/07/20 Tabitha Hurley MD [address] [address] Consulting Physician Rheumatology 10/22/21 documented as of this encounter
--- OUTSIDE RECORDS SUMMARY | 2024-10-28 06:14 | XMS_ITS | Encounter Summary ---
Author Organization [facility] Address [address] [place] [address] Phone Care Team Providers Care Wedger Name Role Phone Guero Colunga DO Primary Care Provider [phone] Amber Montesinos RN Unavailable [phone] Jil Duncan MD Unavailable [phone] Anita Gillespie MD Unavailable [phone] Tabitha Hurley MD Unavailable [phone] Reason for Referral * Diagnostic Imaging (Routine) - Closed Specialty Diagnoses / Procedures Referred By Contac t Referred To Contact Radiology Diagnoses 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HCC) Procedures IR Exchange PICC Line Consult to Interventional Radiology Lisandra Auguste NP [address] [place] [address] Phone: tel: fax: [address] [address] Referral ID Status Reason Start Date Expiration Date Visits Re quested Visits Authorized [id number] Closed 12/23/2021 01/22/2023 1 1 P WHEELER Encounter Details Date Type Department Care Team (Late st Contact Info) Description 12/23/2021 Orders Only [facility] Infectious Diseases [address] [facility] [address] [place] [address] Lisandra Auguste, AIDEN [address] [place] [address] 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HCC) (Primary Dx) [...] on file Legal Sex Male 6:28 AM SCRAP WHEELER Gender Identity Not on file Sexual Orientation Straight 08/22/2021 9: 23 AM CDT documented as of this encounter Plan of Treatment Scheduled Procedures Name Priority Associated Diagnoses Date/Ti me COLONOSCOPY Encounter for screening for colorectal cancer in high risk patient Family history of rectal cancer documented as of this encounter Results * IR Exchange PICC Line (12/24/2021 8:55 AM SCRAP WHEELER) Anatomical Region Laterality Modality Body Left Radio Fluoroscop y 12/24/2021 2:36 PM SCRAP WHEELER Impressions 12/24/2021 6:45 PM SCRAP WHEELER Successful fluoroscopically guided central venous catheter exchange as described above. The power PICC catheter is ready for immediate use. Dictated by: Murtaza López M.D. The radiology attending physician has personally reviewed this study, and had reviewed and/or edited this written report and agrees with it. Electronically signed by: Jp Laurent M.D. 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 ATTENDING PRESENCE: Jp Laurent M.D., the attending radiologist was present from the beginning to the end of the procedure SEDATION: The patient did not require conscious sedation for the procedure. TECHNIQUE: ??The risks, benefits and alternatives were discussed and informed consent was obtained. Prior to beginning the procedure, [place] Protocol was performed to confirm the patient's identity and the planned procedure. ??For procedures that utilize fluoroscopy, the fluoroscopy time has been recorded in the electronic medical record. ??Maximum sterile barriers including cap, mask, hand hygiene, sterile gloves, sterile gown, large sterile drape and 2% chlorhexidine for cutaneous antisepsis were used. The catheter exit site in the right medial arm was anesthetized with 1% Lidocaine. A guidewire was then advanced through the catheter and into the venous system using fluoroscopic guidance. A new 5-Grenadian peripherally inserted central catheter (power PICC) was advanced over the guidewire and into the central circulation. The tip of the catheter was placed in the right atrium . The catheter was capped and flushed with heparin. It was sutured in place using Prolene suture. ??A sterile dressing was applied. ESTIMATED BLOOD LOSS: Minimal. CONDITION: Stable DISCHARGED TO: Home FINDINGS: ??Final fluoroscopic spot image shows the catheter to be in appropriate position. No complications are identified. 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 ATTENDING PRESENCE: Jp Laurent M.D., the attending radiologist was present from the beginning to the end of the procedure SEDATION: The patient did not require conscious sedation for the procedure. TECHNIQUE: The risks, benefits and alternatives were discussed and informed consent was obtained. Prior to beginning the procedure, [place] Protocol was performed to confirm the patient's identity and the planned procedure. For procedures that utilize fluoroscopy, the fluoroscopy time has been recorded in the electronic medical record. Maximum sterile barriers including cap, mask, hand hygiene, sterile gloves, sterile gown, large sterile drape and 2% chlorhexidine for cutaneous antisepsis were used. The catheter exit site in the right medial arm was anesthetized with 1% Lidocaine. A guidewire was then advanced through the catheter and into the venous system using fluoroscopic guidance. A new 5-Grenadian peripherally inserted central catheter (power PICC) was advanced over the guidewire and into the central circulation. The tip of the catheter was placed in the right atrium . The catheter was capped and flushed with heparin. It was sutured in place using Prolene suture. A sterile dressing was applied. ESTIMATED BLOOD LOSS: Minimal. CONDITION: Stable DISCHARGED TO: Home FINDINGS: Final fluoroscopic spot image shows the catheter to be in appropriate position. No complications are identified. IMPRESSION: Successful fluoroscopically guided central venous catheter exchange as described above. The power PICC catheter is ready for immediate use. Dictated by: Murtaza López M.D. The radiology attending physician has personally reviewed this study, and had reviewed and/or edited this written report and agrees with it. Electronically signed by: Jp Laurent M.D. 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
--- OUTSIDE RECORDS SUMMARY | 2024-10-28 06:14 | XMS_ITS | Encounter Summary ---
Author Organization [facility] Home Care Servic es Address [address] [place] [address] Phone Care Team Providers Care Freight Associate Name Role Phone Guero Colunga Primary Care Provider [phone] Amber Montesinos RN Unavailable [phone] Jil Duncan MD Unavailable [phone] Anita Gillespie MD Unavailable [phone] Tabitha Hurley MD Unavailable [phone] Encounter Details Date Type Department Care Team (Late st Contact Info) Description 12/20/2021 Plan of Care Documentation [facility] [address] [place] [address] Social History Tobacco Use Types [...] on file Legal Sex Male 6:28 AM CIGARETTE MAKING EXAMINER Gender Identity Not on file Sexual Orientation Straight 08/22/2021 9: 23 AM CDT documented as of this encounter Plan of Treatment Scheduled Procedures Name Priority Associated Diagnoses Date/Ti me COLONOSCOPY Encounter for screening for colorectal cancer in high risk patient Family history of rectal cancer documented as of this encounter Visit Diagnoses Not on filedocumented in this encounter Care Teams Freight Associate Relationship Specialty Start Date End Date Guero Colunga DO PCP - General Internal Medicine 03/22/19 04/18/23 Amber Montesinos, RN Genetics Nurse Transplant 11/17/19 Jil Duncan MD Consulting Physician Infectious Diseases 01/10/20 Anita Gillespie MD Medical Oncologist/Lens Mold Setter Medical Oncology 10/07/20 Tabitha Hurley MD [address] [facility] 14 [place] [address] Consulting Physician Rheumatology 10/22/21 documented as of this encounter
--- OUTSIDE RECORDS SUMMARY | 2024-10-28 06:14 | XMS_ITS | Encounter Summary ---
Author Organization [facility] Home Care Serv[facility] es Address [address] [place] [address] Phone Care Team Providers Care Director Of Compliance Name Role Phone Guero Colunga Primary Care Provider [phone] Amber Montesinos RN Unavailable [phone] Jil Duncan MD Unavailable [phone] Anita Gillespie MD Unavailable [phone] Tabitha Hurley MD Unavailable [phone] Reason for Visit * Auth/Cert Specialty Diagnoses / Procedures Referred By Contac t Referred To Contact Referral ID Status Reason Start Date Expiration Date Visits Re quested Visits Authorized [id number] 1 1 Encounter Details Date Type Department Care Team (Late st Contact Info) Description 12/20/2021 Home Care Visit [facility] Home Health - [address] [place] [address] Juanita Martin RN SBAR-START OF CARE/RESUMPTION Social History Tobacco [...] file Legal Sex Male 6:28 AM PATIENT 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 Gender Identity Not on file Sexual Orientation Straight 08/22/2021 9: 23 AM CDT documented as of this encounter Plan of Treatment Scheduled Procedures Name Priority Associated Diagnoses Date/Ti me COLONOSCOPY Encounter for screening for colorectal cancer in high risk patient Family history of rectal cancer documented as of this encounter Visit Diagnoses Not on filedocumented in this encounter Care Teams Director Of Compliance Relationship Specialty Start Date End Date Guero Colunga DO PCP - General Internal Medicine 03/22/19 04/18/23 Amber Montesinos, SHAILESH Travel Agent Transplant 11/17/19 Jil Duncan MD Consulting Physician Infectious Diseases 01/10/20 Anita Gillespie MD Medical Oncologist/Legal Arbitrator Medical Oncology 10/07/20 Tabitha uHrley MD [address] [facility] 14 [place] [address] Consulting Physician Rheumatology 10/22/21 documented as of this encounter
--- OUTSIDE RECORDS SUMMARY | 2024-10-28 06:14 | XMS_ITS | Encounter Summary ---
Author Organization [facility] Address [address] [place] [address] Phone Care Team Providers Care Scoring Machine Operator Name Role Phone Guero Colunga DO Primary Care Provider [phone] Amber Montesinos RN Unavailable [phone] Jil Duncan MD Unavailable [phone] Anita Gillespie MD Unavailable [phone] Tabitha Hurley MD Unavailable [phone] Encounter Details Date Type Department Care Team (Late st Contact Info) Description 01/02/2022 Telephone [facility] ENT [address] [facility] Medical Office Building [address] [address] Massiel Gastelum MD [address] [facility] [address] [place] [address] Social History Tobacco Use Types Packs/Day Years [...] on file Legal Sex Male 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 Cesilia, The bacteria that was identified when I saw Beka in the office last week should have been sensitive to the Augmentin, so since he's not feeling better, let's switch to a different antibiotic (Bactrim DS twice a day for 14 days). It looks like his CT is scheduled for later this month, so let's do the antibiotic now as a lead up to the CT scan. Pls continue the saline flushes. Pls let us know if the pharmacy on file is the correct one Sincerely, Bonita Gastelum ?? This is Beka???s mom, Beka woke up this morning with left ear pain and was unable to hear because it is clogged up. Same one that he had his ear infection last time. Plus he still has not total gotten rid of the sinus infection from last time. Even doing the sinus flushes like you ask us to do when we saw you on December 25. Is it possible for you to call in some antibiotics for him. I guess the Augmentin was not strong enough that was given to him two weeks before we saw you. He had did a sinus flush this morning there was yellow mucus substance that flushed out. DING CONSTRUCTION IRONWORKER DING CONSTRUCTION IRONWORKER documented in this encounter Plan of Treatment Scheduled Procedures Name Priority Associated Diagnoses Date/Ti me COLONOSCOPY Encounter for screening for colorectal cancer in high risk patient Family history of rectal cancer documented as of this encounter Visit Diagnoses Not on filedocumented in this encounter Care Teams Scoring Machine Operator Relationship Specialty Start Date End Date Guero Colunga DO PCP - General Internal Medicine 03/22/19 04/18/23 Amber Montesinos RN Machine Cutter Transplant 11/17/19 Jil Duncan MD Consulting Physician Infectious Diseases 01/10/20 Anita Gillespie MD Medical Oncologist/Circus Hand Medical Oncology 10/07/20 Tabitha Hurley MD [address] [facility] 14 [place] [address] Consulting Physician Rheumatology 10/22/21 documented as of this encounter
--- OUTSIDE RECORDS SUMMARY | 2024-10-28 06:14 | XMS_ITS | Encounter Summary ---
Author Organization [facility] Address [address] [place] [address] Phone Care Team Providers Care Account Supervisor Name Role Phone Guero Colunga DO Primary Care Provider [phone] Amber Montesinos RN Unavailable [phone] Jil Duncna MD Unavailable [phone] Anita Gillespie MD Unavailable [phone] Tabitha Hurley MD Unavailable [phone] Reason for Visit * Reason Onset Date Comments opat 01/09/2022 Encounter Details Date Type Department Care Team (Late st Contact Info) Description 01/09/2022 Telephone [facility] Infectious Diseases [address] [place] [address] Ny Griffin opat Social History Tobacco [...] on file Legal 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 LE DEVELOPMENT MANAGER documented in this encounter Plan of Treatment Scheduled Procedures Name Priority Associated Diagnoses Date/Ti me COLONOSCOPY Encounter for screening for colorectal cancer in high risk patient Family history of rectal cancer documented as of this encounter Visit Diagnoses Not on filedocumented in this encounter Care Teams Account Supervisor Relationship Specialty Start Date End Date Guero Colunga DO PCP - General Internal Medicine 03/22/19 04/18/23 Amber Montesinos, SHAILESH Urogynecology Physician Transplant 11/17/19 Jil Duncan MD Consulting Physician Infectious Diseases 01/10/20 Anita Gillespie MD Medical Oncologist/Conveyor Belt Operator Medical Oncology 10/07/20 Tabitha Hurley MD [address] [facility] 14 [place] [address] Consulting Physician Rheumatology 10/22/21 documented as of this encounter
--- OUTSIDE RECORDS SUMMARY | 2024-10-28 06:14 | XMS_ITS | Encounter Summary ---
Author Organization [facility] Address [address] [facility] [address] [place] [address] Phone Care Team Providers Care Purchasing Associate Name Role Phone Guero Colunga DO Primary Care Provider [phone] Amber Montesinos RN Unavailable [phone] Jil Duncan MD Unavailable [phone] Anita Gillespie MD Unavailable [phone] Tabitha Hurley MD Unavailable [phone] Encounter Details Date Type Department Care Team (Late st Contact Info) Description 12/20/2021 Telephone [facility] Infectious Diseases [address] [place] [address] [address] [place] [address] Salud Damon MD PhD [address] [place] [address] Social History Tobacco Use Types Packs/Day Years [...] on file 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 Spoke with both the patient and the home health nurse who state that he is well. He has no abd pain, no cramps. He has loose stools that are at baseline rate over the past 4 weeksof 5-6 stools/ day/ Stools are nonbloody. He has no changes in vision, no new rashes. His w=vitals are wnl except for HR which was 104. Salud Damon ID Fellow individual pension adviser ER OPERATOR documented in this encounter Plan of Treatment Scheduled Procedures Name Priority Associated Diagnoses Date/Ti me COLONOSCOPY Encounter for screening for colorectal cancer in high risk patient Family history of rectal cancer documented as of this encounter Visit Diagnoses Not on filedocumented in this encounter Care Teams Purchasing Associate Relationship Specialty Start Date End Date Guero Colunga DO PCP - General Internal Medicine 03/22/19 04/18/23 Amber Montesinos, SHAILESH Marketing Executive Transplant 11/17/19 Jil Duncan MD Consulting Physician Infectious Diseases 01/10/20 Anita Gillespie MD Medical Oncologist/Reducing Machine Operator Medical Oncology 10/07/20 Tabitha Hurley MD [address] [facility] 14 [place] [address] Consulting Physician Rheumatology 10/22/21 documented as of this encounter
--- OUTSIDE RECORDS SUMMARY | 2024-10-28 06:14 | XMS_ITS | Encounter Summary ---
Author Organization [facility] Address [address] [place] [address] Care Team Providers Care Conditioning Coach Name Role Phone Guero Colunga Primary Care Provider [phone] Amber Montesinos RN Unavailable [phone] Jil Duncan MD Unavailable [phone] Anita Gillespie MD Unavailable [phone] Tabitha Hurley MD Unavailable [phone] Encounter Details Date Type Department Care Team (Late st Contact Info) Description 12/23/2021 Telephone [facility] Radiology [address] [place] [address] Neeta Ahn RN Social History Tobacco Use Types Packs/Day [...] on file Legal Sex Male 6:28 AM INCIDENT COORDINATOR Gender Identity Not on file Sexual Orientation Straight 08/22/2021 9: 23 AM CDT documented as of this encounter Miscellaneous Notes * Telephone Encounter - Neeta Ahn RN - 12/23/2021 2:44 PM CST Preprocedure Phone Call Procedure Time Verified: Yes Arrival Time Verified: Yes Procedure Location Verified: Yes Medical History Reviewed: No NPO Status Reinforced: No Ride and Caregiver Arranged: Yes Patient Knows to Bring Current Medications: Yes Patient Knows to Bring CPAP: No Is Patient on Home Ventilator?: No Is Patient on Blood Thinners?: No DENT COORDINATOR documented in this encounter Plan of Treatment Scheduled Procedures Name Priority Associated Diagnoses Date/Ti me COLONOSCOPY Encounter for screening for colorectal cancer in high risk patient Family history of rectal cancer documented as of this encounter Visit Diagnoses Not on filedocumented in this encounter Care Teams Conditioning Coach Relationship Specialty Start Date End Date Guero Colunga DO PCP - General Internal Medicine 03/22/19 04/18/23 Amber Motnesinos, SHAILESH Mannequin Wig Maker Transplant 11/17/19 Jil Duncan MD Consulting Physician Infectious Diseases 01/10/20 Anita Gillespie MD Medical Oncologist/Cath Laboratory Technician Medical Oncology 10/07/20 Tabitha Hurley MD [address] [facility] 14 [place] [address] Consulting Physician Rheumatology 10/22/21 documented as of this encounter
--- OUTSIDE RECORDS SUMMARY | 2024-10-28 06:14 | XMS_ITS | Encounter Summary ---
Author Organization [facility] Healthcare Address [address] [place] [address] Care Team Providers Care College Teacher Name Role Phone Guero Colunga Primary Care Provider Amber Montesinos RN Unavailable [phone] Jil Duncan MD Unavailable [phone] Anita Gillespie MD Unavailable [phone] Tabitha Hurley MD Unavailable [phone] Reason for Referral * Diagnostic Imaging (Routine) - Closed Specialty Diagnoses / Procedures Referred By Sascha rey Referred To Contact Radiology Diagnoses 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HCC) Procedures IR PICC Line Placement Over 5 Years of Age Александр Mendosa MD [facility] [address] [facility] [address] [place] [address] Phone: tel: fax: [address] [phone] Referral ID Status Reason Start Date Expiration Date Visits Re quested Visits Authorized [id number] Closed 12/25/2021 01/24/2023 1 1 TABLE OPERATOR Reason for Visit * Diagnostic Imaging (Routine) - Closed Specialty Diagnoses / Procedures Referred By Contac Referred To Contact Radiology Diagnoses 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HCC) Procedures IR PICC Line Placement Over 5 Years of Age Александр Mendosa MD [address] [facility] [address] [place] [address] Phone: tel: fax: [address] [place] [address] Referral ID Status Reason Start Date Expiration Date Visits Re quested Visits Authorized [id number] Closed 12/25/2021 01/24/2023 1 1 Encounter Details Date Type Department Care Team (Late st Contact Info) Description 12/26/2021 8:54 AM BURN TABLE OPERATOR - 12/26/2021 11:30 AM BURN TABLE OPERATOR Hospital Encounter [facility] Radiology [address] [address] Александр Mendosa MD [id number] [place] [address] 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HCC) Discharge Disposition: [...] on file Legal Sex Male 6:28 AM BURN TABLE OPERATOR Gender Identity Not on file Sexual Orientation Straight 08/22/2021 9: 23 AM CDT documented as of this encounter Last Filed Vital Signs Vital Sign Reading Time Taken Comments Blood Pressure 120/72 12/26/2021 11:18 AM BURN TABLE OPERATOR Pulse 76 12/26/2021 11:18 AM BURN TABLE OPERATOR Temperature 36.3 ??C (97.3 ??F) 12/26/2021 11:[address] Respiratory Rate 18 12/26/2021 11:18 AM BURN TABLE OPERATOR Oxygen Saturation 98% 12/26/2021 11:18 AM BURN TABLE OPERATOR Inhaled Oxygen Concentration - - Weight - - Height - - Body Mass Index - - documented in this encounter Discharge Diagnoses Diagnosis Cytomegaloviral disease, unspecified (HCC) - CYTOMEGALOVIRAL DISEASE, UNSPECIFIED documented in this encounter Discharge Instructions * Discharge Instructions* Murtaza López MD - 12/26/2021 11:20 AM BURN TABLE OPERATOR Interventional Radiology Outpatient Discharge Instructions/Note Diagnosis:PTLD with CMV viremia Procedure:Left brachial PICC placement Limitations: [x] No lifting greater than 5 pounds with [] Right [x] Left arm for 7 days. [] You received medication that may affect your judgement. ?? Stay with a responsible person today. ?? Do not drive, operate machinery, make any legal or important decisions, or drink alcohol until tomorrow. ?? No smoking unless another adult is present. Other Diet: You may resume your previous diet. Medication: [x] Usual medications; check with your regular doctor for any questions. Do not take any new pain medicine, sleeping pills or sedatives unless approved by your doctor. [] Prescriptions given for: Procedure Site Care: [] teaching sheet given [] Skin glue was used to close your incision. See teaching sheet. [x] Keep site clean and dry. [x] You may bathe or shower tomorrow. [] Change the dressing daily and if it becomes wet or dirty. [x] Cover entire area with plastic and tape down edges before showering to keep site clean and dry. [] The suture at your dialysis access site may be removed by the dialysis staff on ___/___/___ (date). Drainage Tube Care: [] Flush tube with [] 5ml Normal Saline [] 10 ml Normal Saline [] Other: [] Flush tube [] once a day [] Other: [] Record drainage output every day. [] Your tube is capped. Uncap the tube after or if severe pain or fever develops. (Please see teaching sheet). [] Call Interventional Radiology if there is leakage around the tube or the tube stops draining. To contact an Interventional Radiologist at [facility] call [phone] Wednesday through Wednesday from 7:30am-4:30pm. At all other times call [phone] and ask that the Interventional Radiologist be paged. To contact an Interventional Radiologist at [facility] call [phone] Wednesday through Wednesday from 7:30am-3:30pm. Special instructions: Please call Interventional Radiology for any procedure related questions or problems including: ?? Extreme swelling or bruising at the site. ?? Unusual drainage or bleeding from procedure site. ?? Fever of 101.5 F for more than 24 hours. ?? Severe procedure related pain. Follow up care: [] Return to Interventional Radiology on at Please come to: [] 3rd Floor [facility] [] 4th floor [facility] [] [facility] [] [facility] Please call [phone] to schedule a follow up appointment. You need to return in TABLE OPERATOR documented in this encounter Medications at Time of Discharge ganciclovir (CYTOVENE) 500 mg injectionIndicat ions:cytomegalov irus disease Infuse 5.7 mL (285 mg total) into a venous catheter every 12 (twelve) hours 342 mL 12/05/2021 2 0.9 % sodium chloride ([facility] sodium chloride 0.9%) injectionIndicat ions:line patency [...] documented in this encounter Miscellaneous Notes * Perioperative Nursing Note - Marivel Pena RN - 12/26/2021 11:35 AM CST Patient A&Ox4, denies questions/concerns regarding dc. Denies questions regarding PICC line care. Ambulatory upon dc. TABLE OPERATOR * Post-Procedure Note - Murtaza López MD - 12/26/2021 11:14 AM CST Radiology Brief Post Procedure Note Attending: Anne Tap Grinder: Rene Sedation/Anesthesia: Local Pre-Op/Pre-Procedure Diagnosis: PTLD with CMV viremia Post-Op/Post-Procedure Diagnosis: same Procedure Performed: Left brachial vein PICC line placement Procedure Findings: uneventful and technically successful. Tip in right cavoatrial junction. Complications: None Estimated Blood Loss: None Specimens: None Condition: Stable Full report to follow. TABLE OPERATOR * Pre-Procedure Note - Murtaza López MD - 12/26/2021 9:26 AM CST Radiology Procedure Plan Indication: right arm PICC line leaking serous fluid around venotomy site saturating dressing Planned Procedure: New left PICC line placement TABLE OPERATOR documented in this encounter Plan of Treatment Scheduled Procedures Name Priority Associated Diagnoses Date/Ti me COLONOSCOPY Encounter for screening for colorectal cancer in high risk patient Family history of rectal cancer documented as of this encounter Procedures Procedure Name Priority Date/Time Associated Diagnosis Comments IR PICC LINE PLACEMENT > 5 YEARS Schedule Routine, Read Routine (OP Routine) 12/26/2021 11:21 AM BURN TABLE OPERATOR 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HCC) documented in this encounter Results * IR PICC Line Placement Over 5 Years of Age (12/26/2021 11:21 AM BURN TABLE OPERATOR) Anatomical Region Laterality Modality Body N/A X-Ray Angiograph y 12/26/2021 2:29 PM BURN TABLE OPERATOR Impressions 12/26/2021 4:14 PM BURN TABLE OPERATOR Successful nontunneled catheter placement. PLAN: The catheter [...] Alvarado Rodríguez M.D. Narrative 12/26/2021 4:14 PM BURN TABLE OPERATOR EXAMINATION: ??NONTUNNELED CENTRAL VENOUS CATHETER PLACEMENT (STD) [...] was obtained. ??Prior to beginning the procedure, [place] Protocol was used to confirm the patient's [...] was obtained. Prior to beginning the procedure, [place] Protocol was used to confirm the patient's [...] (HCC) Cytomegaloviral disease documented in this encounter Administered Medications Inactive Administered Medications - up to 3 most recent administrations Medication Order MAR Action Action Date Dose Rate Site heparin 100 unit/mL injection Code/trauma/sedation medication, Starting on Wed12/26/21 at 1058, Indications: Maintain Patency of Indwelling Vascular CatheterIndications:Maintain Patency of Indwelling Vascular Catheter Given 12/26/2021 10:58 AM BURN TABLE OPERATOR 5 mL lidocaine PF (XYLOCAINE) 10 mg/mL (1 %) preservative free injection Code/trauma/sedation medication, Starting on Wed12/26/21 at 1054, Intra-Procedure (IR), Indications: Administration of Local AnesthesiaIndications:Administrati on of Local Anesthesia Given 12/26/2021 10:54 AM BURN TABLE OPERATOR 10 mL documented in this encounter Active and Recently Administered Medications Times are shown in BURN TABLE OPERATOR. PRN Medication Order 12/24/2021 12/25/2021 12/26/2021 heparin 100 unit/mL injection (COMPLETED) Code/trauma/sedation medication, Starting on Wed12/26/21 at 1058, Indications: Maintain Patency of Indwelling Vascular Catheter 1058 (Given - Provid er: Murtaza López MD) lidocaine PF (XYLOCAINE) 10 mg/mL (1 %) preservative free injection (COMPLETED) Code/trauma/sedation medication, Starting on Wed12/26/21 at 1054, Intra-Procedure (IR), Indications: Administration of Local Anesthesia 1054 (Given - Provid er: Alvarado Rodríguez MD) documented in this encounter Care Teams College Teacher Relationship Specialty Start Date End Date Guero Colunga DO PCP - General Internal Medicine 03/22/19 04/18/23 Amber Montesinos, SHAILESH Community Engagement Leader Transplant 11/17/19 Jil Duncan MD Consulting Physician Infectious Diseases 01/10/20 Anita Gillespie MD Medical Oncologist/Sonar Subsystem Equipment Operator Medical Oncology 10/07/20 Tabitha Hurley MD [address] [address] Consulting Physician Rheumatology 10/22/21 documented as of this encounter
--- OUTSIDE RECORDS SUMMARY | 2024-10-28 06:14 | XMS_ITS | Encounter Summary ---
Author Organization [facility] Healthcare Address [address] [place] [address] Care Team Providers Care Automatic Maintainer Name Role Phone Guero Colunga Primary Care Provider [phone] Amber Montesinos RN Unavailable [phone] Jil Duncan MD Unavailable [phone] Anita Gillespie MD Unavailable [phone] Tabitha Hurley MD Unavailable [phone] Reason for Visit * Diagnostic Imaging (Routine) - Closed Specialty Diagnoses / Procedures Referred By Contac t Referred To Contact Radiology Diagnoses 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HCC) Procedures IR Exchange PICC Line Consult to Interventional Radiology Lisandra Auguste, AIDEN [address] [place] [address] Phone: tel: fax: [address] [address] Referral ID Status Reason Start Date Expiration Date Visits Re quested Visits Authorized [id number] Closed 12/23/2021 01/22/2023 1 1 Encounter Details Date Type Department Care Team (Late st Contact Info) Description 12/24/2021 7:08 AM BILLIARD TABLE ASSEMBLER - 12/24/2021 9:05 AM BILLIARD TABLE ASSEMBLER Hospital Encounter [facility] Radiology [address] [address] Александр Mendosa MD [address] [facility] [address] [place] [address] 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HCC) Discharge Disposition: [...] on file Legal Sex Male 6:28 AM BILLIARD TABLE ASSEMBLER Gender Identity Not on file Sexual Orientation Straight 08/22/2021 9: 23 AM CDT documented as of this encounter Last Filed Vital Signs Vital Sign Reading Time Taken Comments Blood Pressure 107/63 12/24/2021 8:58 AM BILLIARD TABLE ASSEMBLER Pulse 73 12/24/2021 8:58 AM BILLIARD TABLE ASSEMBLER Temperature 36.7 ??C (98.1 ??F) 12/24/2021 8:58 AM CS T Respiratory Rate 16 12/24/2021 8:58 AM BILLIARD TABLE ASSEMBLER Oxygen Saturation 98% 12/24/2021 8:58 AM BILLIARD TABLE ASSEMBLER Inhaled Oxygen Concentration - - Weight - - Height - - Body Mass Index - - documented in this encounter Discharge Diagnoses Diagnosis Encounter for adjustment and management of vascular access device - ENCOUNTER FOR ADJUSTMENT AND MANAGEMENT OF VASCULAR ACCESS DEVICE Liver transplant status (HCC) - LIVER TRANSPLANT STATUS Cytomegaloviral disease, unspecified (HCC) - CYTOMEGALOVIRAL DISEASE, UNSPECIFIED documented in this encounter Discharge Instructions * Discharge Instructions* Murtaza López MD - 12/24/2021 8:59 AM BILLIARD TABLE ASSEMBLER Interventional Radiology Outpatient Discharge Instructions/Note Diagnosis: CMV viremia Procedure:Right PICC exchange Limitations: [x] No lifting greater than 5 pounds with [x] Right [] Left arm for 7 days. [] You [...] [x] You may bathe or shower tomorrow. [x] Change the dressing daily and if it [...] draining. To contact an Interventional Radiologist at [facility] call [phone] Wednesday through Wednesday from 7:30am-4:30pm. At all other times call [phone] and ask that the Interventional Radiologist be paged. To contact an Interventional Radiologist at [facility] call [phone] Wednesday through Wednesday from 7:30am-3:30pm. Special instructions: [...] at Please come to: [] 3rd Floor [facility] [] 4th floor [facility] [] [facility] [] [facility] Please call [phone] to schedule a follow up appointment. You need to return in IARD TABLE ASSEMBLER documented in this encounter Medications at Time of Discharge amoxicillin-clav ulanate (AUGMENTIN) 875-125 mg per tablet Take 875 mg by mouth 2 (two) times a day 12/16/2021 2 ganciclovir (CYTOVENE) 500 mg injectionIndicat ions:cytomegalov irus disease Infuse 5.7 mL (285 mg total) into a venous catheter every 12 (twelve) hours 342 mL 12/05/2021 2 0.9 % sodium chloride ([facility] sodium chloride 0.9%) injectionIndicat ions:line patency Infuse [...] encounter Miscellaneous Notes * Post-Procedure Note - Murtaza López MD - 12/24/2021 8:56 AM CST Radiology Brief Post Procedure Note Attending: Mehran Cassandra Architect: Rene Sedation/Anesthesia: Local Pre-Op/Pre-Procedure Diagnosis: CMV viremia with PTLD Post-Op/Post-Procedure Diagnosis: same Procedure Performed: Right arm PICC exchange Procedure Findings: uneventful. He was complaining of serous fluid oozing around PICC site. No blood staining. Complications: None Estimated Blood Loss: None Specimens: None Condition: Stable Full report to follow. IARD TABLE ASSEMBLER * Pre-Procedure Note - Murtaza López MD - 12/24/2021 7:15 AM CST Radiology Procedure Plan Indication: Right arm PICC leaking Planned Procedure: possible exchange. IARD TABLE ASSEMBLER documented in this encounter Plan of Treatment Scheduled Procedures Name Priority Associated Diagnoses Date/Ti me COLONOSCOPY Encounter for screening for colorectal cancer in high risk patient Family history of rectal cancer documented as of this encounter Procedures Procedure Name Priority Date/Time Associated Diagnosis Comments EXCHANGE PICC LINE Schedule Routine, Read Routine (OP Routine) 12/24/2021 8:55 AM BILLIARD TABLE ASSEMBLER 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HCC) documented in this encounter Results * IR Exchange PICC Line (12/24/2021 8:55 AM BILLIARD TABLE ASSEMBLER) Anatomical Region Laterality Modality Body Left Radio Fluoroscop y 12/24/2021 2:36 PM BILLIARD TABLE ASSEMBLER Impressions 12/24/2021 6:45 PM BILLIARD TABLE ASSEMBLER Successful fluoroscopically guided central venous catheter exchange as described above. The power PICC catheter is ready for immediate use. Dictated by: Murtaza López M.D. The radiology attending physician has personally reviewed this study, and had reviewed and/or edited this written report and agrees with it. Electronically signed by: Jp Laurent M.D. Narrative 12/24/2021 6:45 PM BILLIARD TABLE ASSEMBLER EXAMINATION: ??RIGHT FLUOROSCOPICALLY GUIDED TUNNELED CENTRAL VENOUS [...] was obtained. Prior to beginning the procedure, [place] Protocol was performed to confirm the patient's [...] venous system using fluoroscopic guidance. A new 5-Haitian peripherally inserted central catheter (power PICC) was [...] was obtained. Prior to beginning the procedure, [place] Protocol was performed to confirm the patient's [...] venous system using fluoroscopic guidance. A new 5-[place]aitian peripherally inserted central catheter (power PICC) was [...] ready for immediate use. Dictated by: Murtaza Rene, M.D. The radiology attending physician has personally reviewed this study, and had reviewed and/or edited this written report and agrees with it. Electronically signed by: Jp Laurent M.D. Lisandra Auguste BUFFING WHEEL INSPECTOR IMG IR PROCEDURES Final R esult documented in this encounter Visit Diagnoses Diagnosis 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 documented in this encounter Administered Medications Inactive Administered Medications - up to 3 most recent administrations Medication Order MAR Action Action Date Dose Rate Site heparin 100 unit/mL injection Code/trauma/sedation medication, Starting on Wed12/24/21 at 0846, Indications: Maintain Patency of Indwelling Vascular CatheterIndications:Maintain Patency of Indwelling Vascular Catheter Given 12/24/2021 8:46 AM BILLIARD TABLE ASSEMBLER 5 mL lidocaine PF (XYLOCAINE) 10 mg/mL (1 %) preservative free injection Code/trauma/sedation medication, Starting on Wed12/24/21 at 0846, Intra-Procedure (IR), Indications: Administration of Local AnesthesiaIndications:Administratio n of Local Anesthesia Given 12/24/2021 8:46 AM BILLIARD TABLE ASSEMBLER 10 mL documented in this encounter Active and Recently Administered Medications Times are shown in BILLIARD TABLE ASSEMBLER. PRN Medication Order 12/22/2021 12/23/2021 12/24/2021 heparin 100 unit/mL injection (COMPLETED) Code/trauma/sedation medication, Starting on Wed12/24/21 at 0846, Indications: Maintain Patency of Indwelling Vascular Catheter 0846 (Given - Provid er: Murtaza López MD) lidocaine PF (XYLOCAINE) 10 mg/mL (1 %) preservative free injection (COMPLETED) Code/trauma/sedation medication, Starting on Wed12/24/21 at 0846, Intra-Procedure (IR), Indications: Administration of Local Anesthesia 0846 (Given - Provid er: Murtaza López MD) documented in this encounter Care Teams Automatic Maintainer Relationship Specialty Start Date End Date Guero Colunga DO PCP - General Internal Medicine 03/22/19 04/18/23 Amber Montesinos, SHAILESH Road Roller Engineer Transplant 11/17/19 Jil Duncan MD Consulting Physician Infectious Diseases 01/10/20 Anita Gillespie MD Medical Oncologist/Sr. Director Product Management Medical Oncology 10/07/20 Tabitha Hurley MD [address] [facility] [address] [facility] [address] [place] [address] Consulting Physician Rheumatology 10/22/21 documented as of this encounter
--- OUTSIDE RECORDS SUMMARY | 2024-10-28 06:14 | XMS_ITS | Encounter Summary ---
Author Organization [facility] Address [address] [place] [address] Phone Care Team Providers Care Willow Worker Name Role Phone Guero Colunga Primary Care Provider [phone] Amber Montesinos RN Unavailable [phone] Jil Duncan MD Unavailable [phone] Anita Gillespie MD Unavailable [phone] Tabitha Hurley MD Unavailable [phone] Reason for Visit * Auth/Cert Specialty Diagnoses / Procedures Referred By Contac t Referred To Contact Referral ID Status Reason Start Date Expiration Date Visits Re quested Visits Authorized [id number] 1 1 Encounter Details Date Type Department Care Team (Late st Contact Info) Description 12/23/2021 Home Care Visit [facility] Home Health - [address] [address] [address] [place] [address] Rosalio Montana, RN TELEPHONE ENCOUNTER Social History Tobacco Use [...] on file Legal Sex Male 6:28 AM CUFF MATCHER Gender Identity Not on file Sexual Orientation Straight 08/22/2021 9: 23 AM CDT documented as of this encounter Plan of Treatment Scheduled Procedures Name Priority Associated Diagnoses Date/Ti me COLONOSCOPY Encounter for screening for colorectal cancer in high risk patient Family history of rectal cancer documented as of this encounter Visit Diagnoses Not on filedocumented in this encounter Care Teams Willow Worker Relationship Specialty Start Date End Date Guero Colunga DO PCP - General Internal Medicine 03/22/19 04/18/23 Amber Montesinos, SHAILESH Prison Guard Transplant 11/17/19 Jil Duncan MD Consulting Physician Infectious Diseases 01/10/20 Anita Gillespie MD Medical Oncologist/Reimbursement Counselor Medical Oncology 10/07/20 Tabitha Hurley MD [address] [facility] [address] [place] [address] Consulting Physician Rheumatology 10/22/21 documented as of this encounter
--- OUTSIDE RECORDS SUMMARY | 2024-10-28 06:15 | XMS_ITS | Encounter Summary ---
Author Organization [facility] Address [address] [place] [address] Phone Care Team Providers Care Child Neurologist Name Role Phone Guero Colunga DO Primary Care Provider [phone] Amber Montesinos RN Unavailable [phone] Jil Duncan MD Unavailable [phone] Anita Gillespie MD Unavailable [phone] Tabitha Hurley MD Unavailable [phone] Reason for Referral * Diagnostic Imaging (Routine) - Closed Specialty Diagnoses / Procedures Referred By Contac t Referred To Contact Radiology Diagnoses 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HCC) Procedures IR PICC Line Placement Over 5 Years of Age Consult to Interventional Radiology Lisandra Auguste NP [address] [place] [address] Phone: tel: fax: [address] [address] Referral ID Status Reason Start Date Expiration Date Visits Re quested Visits Authorized [id number] Closed 12/15/2021 01/14/2023 1 1 HER AIDE CLERICAL Encounter Details Date Type Department Care Team (Late st Contact Info) Description 12/15/2021 Orders Only [facility] Infectious Diseases [address] [facility] [address] [place] [address] Lisandra Auguste, AIDEN [address] [facility] [address] [place] [address] 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HCC) (Primary Dx) Social History Tobacco Use Types Packs/Day Years Used Date Smoking Tobacco: Never Smokeless Tobacco: Current Chew Alcohol Use Standard Drinks/Week Comments Yes 0 (1 standard drink = 0.6 oz pur e alcohol) occassional Sex and Gender Information Value Date Recorded Sex Assigned at Not on file 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 AIDE CLERICAL Gender Identity Not on file Sexual Orientation Straight 08/22/2021 9: 23 AM CDT documented as of this encounter Plan of Treatment Scheduled Procedures Name Priority Associated Diagnoses Date/Ti me COLONOSCOPY Encounter for screening for colorectal cancer in high risk patient Family history of rectal cancer documented as of this encounter Results * IR PICC Line Placement Over 5 Years of Age (12/19/2021 8:55 AM TEACHER AIDE CLERICAL) Anatomical Region Laterality Modality Body N/A Radio Fluoroscop y 12/19/2021 5:24 PM TEACHER AIDE CLERICAL Impressions 12/22/2021 7:17 AM TEACHER AIDE CLERICAL Successful nontunneled catheter placement. PLAN: The catheter is ready for immediate use. ??When treatment is completed, this catheter can be removed at the bedside according to standard hospital protocol. ?? Dictated by: Genaro Hernandez MD The radiology attending physician has personally reviewed this study, and had reviewed and/or edited this written report and agrees with it. Electronically signed by: Parish Rizo MD Narrative 12/22/2021 7:17 AM TEACHER AIDE CLERICAL EXAMINATION: ??NONTUNNELED CENTRAL VENOUS CATHETER PLACEMENT (STD) HISTORY: 26-year-old male with CMV viremia, requiring outpatient medications. ATTENDING PRESENCE: ??Parish Rizo MD, the attending radiologist was present from the beginning to the end of the procedure. ??Dr. Genaro Hernandez MD (vice president of development) was present and participated in the procedure. SEDATION: The patient did not require conscious sedation for the procedure. TECHNIQUE: ?? The risks, benefits and alternatives were discussed and informed consent was obtained. ??Prior to beginning the procedure, Lewis Protocol was used to confirm the patient's identity and planned procedure. ??Fluoroscopy time has been recorded in the electronic medical record. Maximum sterile barriers including cap, mask, hand hygiene, sterile gloves, sterile gown, large sterile drape and 2% chlorhexidine for cutaneous antisepsis were used. ??The skin over the right basilic vein was sterilely prepped, draped and [...] was assessed. After dilating the tract, a dual lumen PICC was inserted over the guidewire. The catheter was flushed with 100U/ml heparin and secured in place. A sterile dressing was applied. ?? ESTIMATED BLOOD LOSS: Minimal. CONDITION: Stable DISCHARGED TO: home. FINDINGS: The final fluoroscopic image demonstrates the catheter with its tip in the right atrium. ??No complications are seen. Procedure Note Parish Rizo MD - 12/22/2021 EXAMINATION: NONTUNNELED CENTRAL VENOUS CATHETER PLACEMENT (STD) HISTORY: 26-year-old male with CMV viremia, requiring outpatient medications. ATTENDING PRESENCE: Parish Rizo MD, the attending radiologist was present from the beginning to the end of the procedure. Dr. Genaro Hernandez MD (vice president of development) was present and participated in the procedure. SEDATION: The patient did not require conscious sedation for the procedure. TECHNIQUE: The risks, benefits and alternatives were discussed and informed consent was obtained. Prior to beginning the procedure, Lewis Protocol was used to confirm the patient's identity and planned procedure. Fluoroscopy time has been recorded in the electronic medical record. Maximum sterile barriers including cap, mask, hand hygiene, sterile gloves, sterile gown, large sterile drape and 2% chlorhexidine for cutaneous antisepsis were used. The skin over the right basilic vein was sterilely prepped, draped and [...] was assessed. After dilating the tract, a dual lumen PICC was inserted over the guidewire. The catheter was flushed with 100U/ml heparin and secured in place. A sterile dressing was applied. ESTIMATED BLOOD [...] according to standard hospital protocol. Dictated by: Genaro Hernandez MD The radiology attending physician has personally reviewed this study, and had reviewed and/or edited this written report and agrees with it. Electronically signed by: Parish Rizo MD Lisandra Auguste NP IMG IR PROCEDURES Final R esult documented in this encounter Visit Diagnoses Diagnosis 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 documented in this encounter Care Teams Child Neurologist Relationship Specialty Start Date End Date Guero Colunga DO PCP - General Internal Medicine 03/22/19 04/18/23 Amber Montesinos RN Wire Saw Operator Transplant 11/17/19 Jil Duncan MD Consulting Physician Infectious Diseases 01/10/20 Anita Gillespie MD Medical Oncologist/Corporate Tutor Medical Oncology 10/07/20 Tabitha Hurley MD [address] [facility] [address] [place] [address] Consulting Physician Rheumatology 10/22/21 documented as of this encounter
--- OUTSIDE RECORDS SUMMARY | 2024-10-28 06:15 | XMS_ITS | Encounter Summary ---
Author Organization [facility] Address [address] [place] [address] Phone Care Team Providers Care Mechanical Car Checker Name Role Phone Cristine Guero Primary Care Provider [phone] Amber Montesinos RN Unavailable [phone] Jil Duncan MD Unavailable [phone] Anita Gillespie MD Unavailable [phone] Tabitha Hurley MD Unavailable [phone] Encounter Details Date Type Department Care Team (Late st Contact Info) Description 11/29/2021 Orders Only [facility] [address] [facility] [address] [place] [address] [place] [id number] Madelaine Martínez, AIDEN [address] [place] [address] Social History Tobacco Use Types Packs/Day Years Used Date Smoking Tobacco: Never Smokeless Tobacco: Current Chew Alcohol Use Standard Drinks/Week Comments Yes 0 (1 standard drink = 0.6 oz pur e alcohol) occassional Sex and Gender Information Value Date Recorded Sex Assigned at Not on file Legal Sex Male 6:28 AM DRUM CARRIER Gender Identity Not on file Sexual Orientation Straight 08/22/2021 9: 23 AM CDT documented as of this encounter Miscellaneous Notes * Result Encounter Note - Madelaine Martínez NP - 12/03/2021 10:38 AM DRUM CARRIER CMV level 1,593 which is improved. Last CMV PCR on 11/22 was 2,166. He should continue to follow-up with ID. CARRIER * Result Encounter Note - Madelaine Martínez NP - 12/02/2021 11:00 AM DRUM CARRIER Alk phos and GGT slightly higher. Waiting for CMV PCR. Tac level 9. Only taking tac 0.[address] Gresham - would you ever decrease to 0.5 mg daily in his situation given CMV viremia or leaveas is? CARRIER * Result Encounter Note - Madelaine Martínez NP - 12/01/2021 7:50 AM DRUM CARRIER Rui Clark - I received his labs in my inbox. Lab are stable but tac level mata't resulted or wasn't drawn. No changes for now. Thanks. CARRIER documented in this encounter Plan of Treatment Scheduled Procedures Name Priority Associated Diagnoses Date/Ti me COLONOSCOPY Encounter for screening for colorectal cancer in high risk patient Family history of rectal cancer documented as of this encounter Procedures Procedure Name Priority Date/Time Associated Diagnosis Comments PLATELET ESTIMATION Routine 11/29/2021 7 :27 AM DRUM CARRIER CBC MORPHOLOGY Routine 11/29/2021 7:27 AM DRUM CARRIER COPY(IES) SENT TO: Routine 11/29/2021 7: 27 AM DRUM CARRIER CMV DNA QN, PCR Routine 11/29/2021 7:27 AM DRUM CARRIER TACROLIMUS LEVEL, TROUGH Routine 11/29/2021 7:27 AM DRUM CARRIER CBC WITH AUTO DIFFERENTIAL Routine 11/29/2021 7:27 AM DRUM CARRIER GAMMA GT Routine 11/29/2021 7:27 AM DRUM CARRIER COMPREHENSIVE METABOLIC PANEL Routine 11/29/2021 7:27 AM DRUM CARRIER documented in this encounter Results * (ABNORMAL) CMV DNA QN, PCR (11/29/2021 7:27 AM DRUM CARRIER) Pathologist [facility] SOURCE BLOOD [facility], CMV DNA qn 1,593(H) IU/mL [facility], CMV DNA log IU/mL 3.20(H) Log IU/mL [facility], Comment: REFERENCE RANGE: NOT DETECTED This test was developed and its analytical performance characteristics have been determined by [facility]. It has not been cleared or approved by the U.S. Food and Drug Administration. This assay has been validated pursuant to the CLIA regulations and is used for clinical purposes. For additional information, please refer to http://education.[employer]/faq/CMVandEBVPCR (This link is being provided for informational/ educational purposes only.) 11/29/2021 7:27 AM DRUM CARRIER 11/29/2021 7:28 AM DRUM CARRIER us Madelaine Martínez NP LAB MICROBIOLOGY - GENER AL ORDERABLES Final Result [facility], [address] [place] [address] * Tacrolimus level trough (11/29/2021 7:27 AM DRUM CARRIER) [facility] Tacrolimus, highly Sensitive, LC/MS/MS 9.0 mcg/L [facility] Comment: No definitive therapeutic or toxic ranges have been established. Optimal blood drug levels are influenced by type of transplant, patient response, time post- transplant, co-administration of other drugs, and drug formulation. The following trough range is a suggested guideline: 5.0-20.0 mcg/L. This test was developed and its analytical performance characteristics have been determined by [facility]. It has not been cleared or approved by the FDA. This assay has been validated pursuant to the CLIA regulations and is used for clinical purposes. 11/29/2021 7:27 AM DRUM CARRIER 11/29/2021 7:28 AM DRUM CARRIER us Madelaine Martínez NP LAB BLOOD ORDERABLES Fin al Result [facility] [address] [address] * (ABNORMAL) Comprehensive metabolic panel (11/29/2021 7:27 AM DRUM CARRIER) Pathologist [facility] Glucose 101(H) 65 - 99 mg/dL [facility] Comment: ? Fasting reference interval For someone without known diabetes, a glucose value between 100 and 125 mg/dL is consistent with prediabetes and should be confirmed with a follow-up test. BUN 17 7 - 25 mg/dL [facility] Creatinine 0.87 0.60 - 1.35 mg/dL [facility] eGFR NON-AFR. [place] 117 > OR = 60 mL/min/1. 73m2 [facility] EGFR 136 > OR = 60 mL/min/1. 73m2 [facility] BUN/creat ratio NOT APPLICABLE 6 - 22 (calc) [facility] Sodium 143 135 - 146 mmol/L [facility] Potassium, pl 4.0 3.5 - 5.3 mmol/L [facility] Chloride 112(H) 98 - 110 mmol/L [facility] CO2 20 20 - 32 mmol/L [facility] Calcium 8.6 8.6 - 10.3 mg/dL [facility] Protein, sr 5.3(L) 6.1 - 8.1 g/dL [facility] Albumin 3.8 3.6 - 5.1 g/dL [facility] GLOBULIN 1.5(L) 1.9 - 3.7 g/dL (calc) [facility] Alb/glob ratio 2.5 1.0 - 2.5 (calc) [facility] Bilirubin, total 1.3(H) 0.2 - 1.2 mg/dL [facility] Alk phos 256(H) 36 - 130 U/L [facility] AST 44(H) 10 - 40 U/L [facility] ALT (SGPT) 35 9 - 46 U/L [facility] 11/29/2021 7:27 AM DRUM CARRIER 11/29/2021 7:28 AM DRUM CARRIER Madelaine Martínez GRAVEL WEIGHER LAB BLOOD ORDERABLES Fin al Result Performing Organization Address [facility] de Phone Number [facility] [address] [place] [address] * (ABNORMAL) Gamma GT (11/29/2021 7:27 AM DRUM CARRIER) GGT 106(H) 3 - 70 U/L [facility] 11/29/2021 7:27 AM DRUM CARRIER 11/29/2021 7:28 AM DRUM CARRIER Madelaine Martínez GRAVEL WEIGHER LAB BLOOD ORDERABLES Fin al Result Performing Organization Address [facility] de Phone Number [facility] [address] [place] [address] * CBC MORPHOLOGY (11/29/2021 7:27 AM DRUM CARRIER) CBC MORPHOLOGY NORMAL [facility] Comment: Crenated red blood cells 1 + [place] bodies 1 + Target cells 1 + 11/29/2021 7:27 AM DRUM CARRIER 11/29/2021 7:28 AM DRUM CARRIER Madelaine Martínez GRAVEL WEIGHER LAB BLOOD ORDERABLES Fin al Result Performing Organization Address [facility] Co de Phone Number [facility] [address] [place] [address] * (ABNORMAL) PLATELET ESTIMATION (11/29/2021 7:27 AM DRUM CARRIER) [facility] PLATELET ESTIMATION DECREASED( A) ADEQUATE [facility] 11/29/2021 7:27 AM DRUM CARRIER 11/29/2021 7:28 AM DRUM CARRIER Madelaine Rossy Martínez GRAVEL WEIGHER LAB BLOOD ORDERABLES Fin al Result Performing Organization Address [facility] de Phone Number [facility] [address] [address] [place] [address] * (ABNORMAL) CBC with auto differential (11/29/2021 7:27 AM DRUM CARRIER) [facility] WBC 9.1 3.8 - 10.8 Thousand/u L [facility] RBC, POC 3.75(L) 4.20 - 5.80 Million/uL [facility] Hgb 12.8(L) 13.2 - 17.1 g/dL [facility] Hct 36.4(L) 38.5 - 50.0 % [facility] MCV 97.1 80.0 - 100.0 fL [facility] MCH 34.1(H) 27.0 - 33.0 pg [facility] MCHC 35.2 32.0 - 36.0 g/dL [facility] Rdw 16.1(H) 11.0 - 15.0 % [facility] Platelets 127(L) 140 - 400 Thousand/u L [facility] MPV 11.8 7.5 - 12.5 fL [facility] Neutrophils, abs 3,485 1,500 - 7,800 cells/uL [facility] Lymphocytes, abs 4,086(H) 850 - 3,900 cells/uL [facility] Monocyte abs 1,429(H) 200 - 950 cells/uL [facility] Eosinophils, abs 18 15 - 500 cells/uL [facility] Basophils, abs 82 0 - 200 cells/uL [facility] Neutrophils 38.3 % [facility] Lymphocyte pct 44.9 % [facility] Monocytes 15.7 % [facility] Eosinophils 0.2 % [facility] Basophils 0.9 % [facility] 11/29/2021 7:27 AM DRUM CARRIER 11/29/2021 7:28 AM DRUM CARRIER Madelaine Martínez GRAVEL WEIGHER LAB BLOOD ORDERABLES Fin al Result Performing Organization Address City/[facility]/ZIP Co de Phone Number [facility] [address] [place] [address] * COPY(IES) SENT TO: (11/29/2021 7:27 AM DRUM CARRIER) COPY(IES) SENT TO: [facility] Comment: ?[facility] LIVER - COPY TO ACCT ?[address] [facility] [facility] ?[place] [address] 11/29/2021 7:27 AM DRUM CARRIER 11/29/2021 7:28 AM DRUM CARRIER Madelaine Martínez GRAVEL WEIGHER LAB BLOOD ORDERABLES Fin al Result [facility] documented in this encounter Visit Diagnoses Not on filedocumented in this encounter Care Teams Mechanical Car Checker Relationship Specialty Start Date End Date Guero Colunga DO PCP - General Internal Medicine 03/22/19 04/18/23 Amber Montesinos, SHAILESH Pilot Plant Research Technician Transplant 11/17/19 Jil Duncan MD Consulting Physician Infectious Diseases 01/10/20 Anita Gillespie MD Medical Oncologist/Girls Tennis Coach Medical Oncology 10/07/20 Tabitha Hurley MD [address] [facility] [address] [facility] [address] [place] [address] Consulting Physician Rheumatology 10/22/21 documented as of this encounter
--- OUTSIDE RECORDS SUMMARY | 2024-10-28 06:15 | XMS_ITS | Encounter Summary ---
Author Organization [facility] Address [address] [place] [address] Phone Care Team Providers Care Dinkey Press Operator Name Role Phone Cristine Guero DO Primary Care Provider [phone] Amber Montesinos RN Unavailable [phone] Jil Duncan MD Unavailable [phone] Anita Gillespie MD Unavailable [phone] Tabitha Hurley MD Unavailable [phone] Encounter Details Date Type Department Care Team (Late st Contact Info) Description 12/13/2021 Orders Only [facility] Gastroenterology [address] [facility] Advanced Medicine 8th [place] [address] [place] [address] Madelaine Martínez, AIDEN [address] [place] [address] Social History Tobacco Use Types Packs/Day Years Used Date Smoking Tobacco: Never Smokeless Tobacco: Current Chew Alcohol Use Standard Drinks/Week Comments Yes 0 (1 standard drink = 0.6 oz pur e alcohol) occassional Sex and Gender Information Value Date Recorded Sex Assigned at Not on file Legal Sex Male 6:28 AM MARINE DIESEL TECHNICIAN Gender Identity Not on file Sexual Orientation Straight 08/22/2021 9: 23 AM CDT documented as of this encounter Miscellaneous Notes * Result Encounter Note - Madelaine Martínez NP - 12/16/2021 12:15 PM MARINE DIESEL TECHNICIAN Liver numbers and CMV improving. No change from my perspective. Thanks NE DIESEL TECHNICIAN documented in this encounter Plan of Treatment Scheduled Procedures Name Priority Associated Diagnoses Date/Ti me COLONOSCOPY Encounter for screening for colorectal cancer in high risk patient Family history of rectal cancer documented as of this encounter Procedures Procedure Name Priority Date/Time Associated Diagnosis Comments PLATELET ESTIMATION Routine 12/13/2021 7 :06 AM MARINE DIESEL TECHNICIAN CBC MORPHOLOGY Routine 12/13/2021 7:06 AM MARINE DIESEL TECHNICIAN COPY(IES) SENT TO: Routine 12/13/2021 7: 06 AM MARINE DIESEL TECHNICIAN CMV DNA QN, PCR Routine 12/13/2021 7:06 AM MARINE DIESEL TECHNICIAN TACROLIMUS LEVEL, TROUGH Routine 12/13/2021 7:06 AM MARINE DIESEL TECHNICIAN CBC WITH AUTO DIFFERENTIAL Routine 12/13/2021 7:06 AM MARINE DIESEL TECHNICIAN GAMMA GT Routine 12/13/2021 7:06 AM MARINE DIESEL TECHNICIAN BILIRUBIN, DIRECT Routine 12/13/2021 7:0 6 AM MARINE DIESEL TECHNICIAN COMPREHENSIVE METABOLIC PANEL Routine 12/13/2021 7:06 AM MARINE DIESEL TECHNICIAN documented in this encounter Results * (ABNORMAL) CMV DNA QN, PCR (12/13/2021 7:06 AM MARINE DIESEL TECHNICIAN) SOURCE BLOOD [facility], CMV DNA qn 909(H) IU/mL [facility], CMV DNA log IU/mL 2.96(H) Log IU/mL [facility], Comment: REFERENCE RANGE: NOT DETECTED This test was developed and its analytical performance characteristics have been determined by [employer]. It has not been cleared or approved by the U.S. Food and Drug Administration. This assay has been validated pursuant to the CLIA regulations and is used for clinical purposes. For additional information, please refer to http://education.Certain.Parature/faq/CMVandEBVPCR (This link is being provided for informational/ educational purposes only.) 12/13/2021 7:06 AM MARINE DIESEL TECHNICIAN 12/13/2021 7:07 AM MARINE DIESEL TECHNICIAN Madelaine Martínez NP LAB MICROBIOLOGY - [facility] AL ORDERABLES Final Result [facility] [employer], [address] [place] [address] * (ABNORMAL) Comprehensive metabolic panel (12/13/2021 7:06 AM MARINE DIESEL TECHNICIAN) [facility] Glucose 79 65 - 99 mg/dL [facility] [place] Comment: ? Fasting reference interval BUN 13 7 - 25 mg/dL [facility] [place] Creatinine 0.86 0.60 - 1.35 mg/dL [facility] [place] eGFR NON-AFR. GHANAIAN 118 > OR = 60 mL/min/1. 73m2 [facility] [place] EGFR 137 > OR = 60 mL/min/1. 73m2 [facility] [place] BUN/creat ratio NOT APPLICABLE 6 - 22 (calc) [facility] [place] Sodium 138 135 - 146 mmol/L [facility] [place] Potassium, pl 4.2 3.5 - 5.3 mmol/L [facility] [place] Chloride 107 98 - 110 mmol/L [facility] [place] CO2 22 20 - 32 mmol/L [facility] [place] Calcium 8.7 8.6 - 10.3 mg/dL [facility] [place] Protein, sr 5.7(L) 6.1 - 8.1 g/dL [facility] [place] Albumin 3.8 3.6 - 5.1 g/dL [facility] [place] GLOBULIN 1.9 1.9 - 3.7 g/dL (calc) [facility] [place] Alb/glob ratio 2.0 1.0 - 2.5 (calc) [facility] [place] Bilirubin, total 1.7(H) 0.2 - 1.2 mg/dL [facility] [place] Alk phos 275(H) 36 - 130 U/L [facility] [place] AST 39 10 - 40 U/L [facility] [place] ALT (SGPT) 32 9 - 46 U/L [facility] [place] 12/13/2021 7:06 AM MARINE DIESEL TECHNICIAN 12/13/2021 7:07 AM MARINE DIESEL TECHNICIAN Madelaine Martínez PATIENT MANAGER LAB BLOOD ORDERABLES Fin al Result Performing Organization Address [facility] Co de Phone Number [facility] [address] [place] [address] * (ABNORMAL) Gamma GT (12/13/2021 7:06 AM MARINE DIESEL TECHNICIAN) GGT 93(H) 3 - 70 U/L [facility] 12/13/2021 7:06 AM MARINE DIESEL TECHNICIAN 12/13/2021 7:07 AM MARINE DIESEL TECHNICIAN Madelaine Martínez PATIENT MANAGER LAB BLOOD ORDERABLES Fin al Result Performing Organization Address [facility] de Phone Number [facility] [address] [place] [address] * (ABNORMAL) Bilirubin, direct (12/13/2021 7:06 AM MARINE DIESEL TECHNICIAN) Bilirubin, direct 0.7(H) < OR = 0.2 mg/dL [facility] 12/13/2021 7:06 AM MARINE DIESEL TECHNICIAN 12/13/2021 7:07 AM MARINE DIESEL TECHNICIAN Madelaine Martínez PATIENT MANAGER LAB BLOOD ORDERABLES Fin al Result Performing Organization Address [facility] Co de Phone Number [facility] [address] [facility] [place] [address] * Tacrolimus level trough (12/13/2021 7:06 AM MARINE DIESEL TECHNICIAN) [facility] Tacrolimus, highly Sensitive, LC/MS/MS 7.4 mcg/L [facility] Comment: No definitive therapeutic or toxic ranges have been established. Optimal blood drug levels are influenced by type of transplant, patient response, time post- transplant, co-administration of other drugs, and drug formulation. The following trough range is a suggested guideline: 5.0-20.0 mcg/L. This test was developed and its analytical performance characteristics have been determined by [employer]. It has not been cleared or approved by the FDA. This assay has been validated pursuant to the CLIA regulations and is used for clinical purposes. 12/13/2021 7:06 AM MARINE DIESEL TECHNICIAN 12/13/2021 7:07 AM MARINE DIESEL TECHNICIAN Madelaine Martínez PATIENT MANAGER LAB BLOOD ORDERABLES Fin al Result Performing Organization Address [facility] de Phone Number [facility] [address] [place] [address] * CBC MORPHOLOGY (12/13/2021 7:06 AM MARINE DIESEL TECHNICIAN) [facility] CBC MORPHOLOGY NORMAL [employer] [facility] Comment:Anisocytosis 1 + 12/13/2021 7:06 AM MARINE DIESEL TECHNICIAN 12/13/2021 7:07 AM MARINE DIESEL TECHNICIAN Madelaine Martínez PATIENT MANAGER LAB BLOOD ORDERABLES Fin al Result Performing Organization Address [facility] Co de Phone Number [facility] [address] [facility] [place] [address] * (ABNORMAL) PLATELET ESTIMATION (12/13/2021 7:06 AM MARINE DIESEL TECHNICIAN) [facility] PLATELET ESTIMATION DECREASED( A) ADEQUATE [facility] 12/13/2021 7:06 AM MARINE DIESEL TECHNICIAN 12/13/2021 7:07 AM MARINE DIESEL TECHNICIAN us Madelaine Martínez PATIENT MANAGER LAB BLOOD ORDERABLES Fin al Result [facility] [address] [address] * (ABNORMAL) CBC with auto differential (12/13/2021 7:06 AM MARINE DIESEL TECHNICIAN) Pathologist [facility] WBC 7.3 3.8 - 10.8 Thousand/u L [facility] RBC, POC 3.82(L) 4.20 - 5.80 Million/uL [facility] Hgb 13.3 13.2 - 17.1 g/dL [facility] Hct 37.2(L) 38.5 - 50.0 % [facility] MCV 97.4 80.0 - 100.0 fL [facility] MCH 34.8(H) 27.0 - 33.0 pg [facility] MCHC 35.8 32.0 - 36.0 g/dL [facility] Rdw 16.9(H) 11.0 - 15.0 % [facility] Platelets 110(L) 140 - 400 Thousand/u L [facility] MPV 11.8 7.5 - 12.5 fL [facility] Neutrophils, abs 2,190 1,500 - 7,800 cells/uL [facility] Lymphocytes, abs 3,526 850 - 3,900 cells/uL [facility] Monocyte abs 1,460(H) 200 - 950 cells/uL [facility] Eosinophils, abs 51 15 - 500 cells/uL [facility] Basophils, abs 73 0 - 200 cells/uL [facility] Neutrophils 30.0 % [facility] Lymphocyte pct 48.3 % [facility] Monocytes 20.0 % [facility] Eosinophils 0.7 % [facility] Basophils 1.0 % [facility] Comment [facility] Comment:LARGE AND/OR GIANT P LATELETS 12/13/2021 7:06 AM MARINE DIESEL TECHNICIAN 12/13/2021 7:07 AM MARINE DIESEL TECHNICIAN Madelaine Martínez PATIENT MANAGER LAB BLOOD ORDERABLES Fin al Result Performing Organization Address City/[facility]/ZIP Co de Phone Number JESSIE [facility] [address] [place] [address] * COPY(IES) SENT TO: (12/13/2021 7:06 AM MARINE DIESEL TECHNICIAN) COPY(IES) SENT TO: [facility] Comment: ?[facility] LIVER - COPY TO ACCT ?[address] ?[place] [address] 12/13/2021 7:06 AM MARINE DIESEL TECHNICIAN 12/13/2021 7:07 AM MARINE DIESEL TECHNICIAN Madelaine Martínez PATIENT MANAGER LAB BLOOD ORDERABLES Fin al Result [facility] documented in this encounter Visit Diagnoses Not on filedocumented in this encounter Care Teams Dinkey Press Operator Relationship Specialty Start Date End Date Guero Colunga DO PCP - General Internal Medicine 03/22/19 04/18/23 Amber Montesinos, SHAILESH Broke Beater Machine Operator Transplant 11/17/19 Jil Duncan MD Consulting Physician Infectious Diseases 01/10/20 Anita Gillespie MD Medical Oncologist/Human Resources Operations Director Medical Oncology 10/07/20 Tabitha Hurley MD [address] [facility] [address] [place] [address] Consulting Physician Rheumatology 10/22/21 documented as of this encounter
--- OUTSIDE RECORDS SUMMARY | 2024-10-28 06:15 | XMS_ITS | Encounter Summary ---
Author Organization [facility] Address [address] [place] [address] Phone Care Team Providers Care Robot Programmer Name Role Phone Guero Colunga DO Primary Care Provider [phone] Amber Montesinos RN Unavailable [phone] Jil Duncan MD Unavailable [phone] Anita Gillespie MD Unavailable [phone] Tabitha Hurley MD Unavailable [phone] Encounter Details Date Type Department Care Team (Late st Contact Info) Description 11/15/2021 Orders Only [facility] Gastroenterology [address] [facility] Advanced Medicine 8th [place] [address] [place] [address] Theodore Gresham MD [address] [facility] [address] [place] [address] Social History Tobacco Use Types Packs/Day Years Used Date Smoking Tobacco: Never Smokeless Tobacco: Current Chew Alcohol Use Standard Drinks/Week Comments Yes 0 (1 standard drink = 0.6 oz pur e alcohol) occassional Sex and Gender Information Value Date Recorded Sex Assigned at Not on file Legal Sex Male 6:28 AM EXTRUDER OPERATOR HORIZONTAL Gender Identity Not on file Sexual Orientation Straight 08/22/2021 9: 23 AM CDT documented as of this encounter Miscellaneous Notes * Result Encounter Note - Amber Vargas RN - 11/19/2021 2:03 PM EXTRUDER OPERATOR HORIZONTAL ID aware per chart review UDER OPERATOR HORIZONTAL documented in this encounter Plan of Treatment Scheduled Procedures Name Priority Associated Diagnoses Date/Ti me COLONOSCOPY Encounter for screening for colorectal cancer in high risk patient Family history of rectal cancer documented as of this encounter Procedures Procedure Name Priority Date/Time Associated Diagnosis Comments COPY(IES) SENT TO: Routine 11/15/2021 7: 04 AM EXTRUDER OPERATOR HORIZONTAL CMV DNA QN, PCR Routine 11/15/2021 7:04 AM EXTRUDER OPERATOR HORIZONTAL TACROLIMUS LEVEL, TROUGH Routine 11/15/2021 7:04 AM EXTRUDER OPERATOR HORIZONTAL CBC WITH AUTO DIFFERENTIAL Routine 11/15/2021 7:04 AM EXTRUDER OPERATOR HORIZONTAL GAMMA GT Routine 11/15/2021 7:04 AM EXTRUDER OPERATOR HORIZONTAL BILIRUBIN, DIRECT Routine 11/15/2021 7:0 4 AM EXTRUDER OPERATOR HORIZONTAL COMPREHENSIVE METABOLIC PANEL Routine 11/15/2021 7:04 AM EXTRUDER OPERATOR HORIZONTAL documented in this encounter Results * (ABNORMAL) CMV DNA QN, PCR (11/15/2021 7:04 AM EXTRUDER OPERATOR HORIZONTAL) SOURCE BLOOD [facility], CMV DNA qn 4,034(H) IU/mL [facility], CMV DNA log IU/mL 3.61(H) Log IU/mL [facility] [facility], Comment: REFERENCE RANGE: NOT DETECTED This test was developed and its analytical performance characteristics have been determined by [employer]. It has not been cleared or approved by the U.S. Food and Drug Administration. This assay has been validated pursuant to the CLIA regulations and is used for clinical purposes. For additional information, please refer to http://education.Fly Victor.Blueliv/faq/CMVandEBVPCR (This link is being provided for informational/ educational purposes only.) 11/15/2021 7:04 AM EXTRUDER OPERATOR HORIZONTAL 11/15/2021 7:05 AM EXTRUDER OPERATOR HORIZONTAL Theodore Gresham MD LAB MICROBIOLOGY - GENERAL ORDERABLES Final Result Performing Organization Address [facility] Co de Phone Number [facility], [address] [place] [address] * Tacrolimus level trough (11/15/2021 7:04 AM EXTRUDER OPERATOR HORIZONTAL) Pathologist [facility] Tacrolimus, highly Sensitive, LC/MS/MS 6.0 mcg/L [employer] [facility] Comment: No definitive therapeutic or toxic ranges have been established. Optimal blood drug levels are influenced by type of transplant, patient response, time post- transplant, co-administration of other drugs, and drug formulation. The following trough range is a suggested guideline: 5.0-20.0 mcg/L. This test was developed and its analytical performance characteristics have been determined by [employer]. It has not been cleared or approved by the FDA. This assay has been validated pursuant to the CLIA regulations and is used for clinical purposes. 11/15/2021 7:04 AM EXTRUDER OPERATOR HORIZONTAL 11/15/2021 7:05 AM EXTRUDER OPERATOR HORIZONTAL Theodore Gresham MD LAB BLOOD ORDERABLES Final Result Performing Organization Address [facility] Co de Phone Number [facility] [address] [place] [address] * (ABNORMAL) Comprehensive metabolic panel (11/15/2021 7:04 AM EXTRUDER OPERATOR HORIZONTAL) Pathologist [facility] Glucose 95 65 - 99 mg/dL [facility] Comment: ? Fasting reference interval BUN 12 7 - 25 mg/dL [employer] Creatinine 0.78 0.60 - 1.35 mg/dL [facility] eGFR NON-AFR. CHADIAN 123 > OR = 60 mL/min/1. 73m2 [facility] EGFR 142 > OR = 60 mL/min/1. 73m2 [facility] BUN/creat ratio NOT APPLICABLE 6 - 22 (calc) [facility] Sodium 140 135 - 146 mmol/L [facility] Potassium, pl 4.0 3.5 - 5.3 mmol/L [facility] Chloride 112(H) 98 - 110 mmol/L [facility] CO2 19(L) 20 - 32 mmol/L [facility] Calcium 8.5(L) 8.6 - 10.3 mg/dL [facility] Protein, sr 5.3(L) 6.1 - 8.1 g/dL [facility] Albumin 3.7 3.6 - 5.1 g/dL [facility] GLOBULIN 1.6(L) 1.9 - 3.7 g/dL (calc) [facility] Alb/glob ratio 2.3 1.0 - 2.5 (calc) [facility] Bilirubin, total 1.7(H) 0.2 - 1.2 mg/dL [facility] Alk phos 268(H) 36 - 130 U/L [facility] AST 56(H) 10 - 40 U/L [facility] ALT (SGPT) 49(H) 9 - 46 U/L [facility] 11/15/2021 7:04 AM EXTRUDER OPERATOR HORIZONTAL 11/15/2021 7:05 AM EXTRUDER OPERATOR HORIZONTAL us Theodore Gresham MD LAB BLOOD ORDERABLES Final Result [facility] [address] [place] [address] * (ABNORMAL) Gamma GT (11/15/2021 7:04 AM EXTRUDER OPERATOR HORIZONTAL) GGT 118(H) 3 - 70 U/L [facility] 11/15/2021 7:04 AM EXTRUDER OPERATOR HORIZONTAL 11/15/2021 7:05 AM EXTRUDER OPERATOR HORIZONTAL us Theodore Gresham MD LAB BLOOD ORDERABLES Final Result Performing Organization Address [facility] Co de Phone Number [facility] [address] [place] [address] * (ABNORMAL) Bilirubin, direct (11/15/2021 7:04 AM EXTRUDER OPERATOR HORIZONTAL) Pathologist [facility] Bilirubin, direct 0.7(H) < OR = 0.2 mg/dL [facility] 11/15/2021 7:04 AM EXTRUDER OPERATOR HORIZONTAL 11/15/2021 7:05 AM EXTRUDER OPERATOR HORIZONTAL Theodore Gresham MD LAB BLOOD ORDERABLES Final Result Performing Organization Address [facility] de Phone Number [facility] [address] [place] [address] * (ABNORMAL) CBC with auto differential (11/15/2021 7:04 AM EXTRUDER OPERATOR HORIZONTAL) Pathologist [facility] WBC 8.8 3.8 - 10.8 Thousand/u L [facility] RBC, POC 3.85(L) 4.20 - 5.80 Million/uL [facility] Hgb 12.6(L) 13.2 - 17.1 g/dL [facility] Hct 36.9(L) 38.5 - 50.0 % [facility] MCV 95.8 80.0 - 100.0 fL [facility] MCH 32.7 27.0 - 33.0 pg [facility] MCHC 34.1 32.0 - 36.0 g/dL [facility] Rdw 15.3(H) 11.0 - 15.0 % [facility] Platelets 164 140 - 400 Thousand/u L [facility] MPV 12.4 7.5 - 12.5 fL [facility] Neutrophils, abs 3,010 1,500 - 7,800 cells/uL [facility] Lymphocytes, abs 4,250(H) 850 - 3,900 cells/uL [facility] Monocyte abs 1,408(H) 200 - 950 cells/uL [facility] Eosinophils, abs 53 15 - 500 cells/uL [facility] Basophils, abs 79 0 - 200 cells/uL [facility] Neutrophils 34.2 % [facility] Lymphocyte pct 48.3 % [facility] Monocytes 16.0 % [facility] Eosinophils 0.6 % [facility] Basophils 0.9 % [facility] 11/15/2021 7:04 AM EXTRUDER OPERATOR HORIZONTAL 11/15/2021 7:05 AM EXTRUDER OPERATOR HORIZONTAL Theodore Gresham MD LAB BLOOD ORDERABLES Final Result Performing Organization Address City/[facility]/ZIP Co de Phone Number [facility] [address] [place] [address] * COPY(IES) SENT TO: (11/15/2021 7:04 AM EXTRUDER OPERATOR HORIZONTAL) COPY(IES) SENT TO: [facility] Comment: ?[facility] LIVER - COPY TO ACCT ?[address] ?[place] [address] 11/15/2021 7:04 AM EXTRUDER OPERATOR HORIZONTAL 11/15/2021 7:05 AM EXTRUDER OPERATOR HORIZONTAL Theodore Gresham MD LAB BLOOD ORDERABLES Final Result [facility] documented in this encounter Visit Diagnoses Not on filedocumented in this encounter Care Teams Robot Programmer Relationship Specialty Start Date End Date Guero Colunga DO PCP - General Internal Medicine 03/22/19 04/18/23 Amber Montesinos, RN Plodder Operator Transplant 11/17/19 Jil Duncan MD Consulting Physician Infectious Diseases 01/10/20 Anita Gillespie MD Medical Oncologist/Loom Changer Medical Oncology 10/07/20 Tabitha Hurley MD [address] [facility] [address] [place] [address] Consulting Physician Rheumatology 10/22/21 documented as of this encounter
--- OUTSIDE RECORDS SUMMARY | 2024-10-28 06:15 | XMS_ITS | Encounter Summary ---
Author Organization [facility] Address [address] [place] [address] Phone Care Team Providers Care Multiple Needle Stitcher Name Role Phone Guero Colunga DO Primary Care Provider [phone] Amber Montesinos RN Unavailable [phone] Jil Duncan MD Unavailable [phone] Anita Gillespie MD Unavailable [phone] Tabitha Hurley MD Unavailable [phone] Encounter Details Date Type Department Care Team (Late st Contact Info) Description 12/16/2021 Orders Only [facility] Oncology [address] [facility] Advanced Medicine 7th [place] [address] [place] [address] Samreen Greene RN Diarrhea, unspecified type (Primary Dx) Social History Tobacco Use Types Packs/Day Years Used Date Smoking Tobacco: Never Smokeless Tobacco: Current Chew Alcohol Use Standard Drinks/Week Comments Yes 0 (1 standard drink = 0.6 oz pur e alcohol) occassional Sex and Gender Information Value Date Recorded Sex Assigned at Not on file Legal Sex Male 6:28 AM TYRE FITTER Gender Identity Not on file Sexual Orientation Straight 08/22/2021 9: 23 AM CDT documented as of this encounter Progress Notes * Samreen Greene RN - 12/16/2021 11:53 AM CST Beka sent a [employer] message to report feeling unwell for several weeks. He is going to perform jennifer home COVID test. He prefers to do this than to come in and be tested, but discussed that this still may be necessary. He has been having 5- 6 bouts of very watery diarrhea per day. He has been drinking gatorades and urinating well despite this. Given his frequent antibiotic courses, requested he bring a stool sample to [email or web address] to rule out C. Diff. Advised he not take any anti- diarrheals until we have these results back. FITTER documented in this encounter Plan of Treatment Scheduled Orders Name Type Priority Associated Diagnoses Orde r Schedule Clostridium difficile toxin Stool Microbiology Routine Diarrhea, unspecified type Expected: 12/16/2021, Expires: 12/16/2022 Scheduled Procedures Name Priority Associated Diagnoses Date/Ti me COLONOSCOPY Encounter for screening for colorectal cancer in high risk patient Family history of rectal cancer documented as of this encounter Procedures Procedure Name Priority Date/Time Associated Diagnosis Comments CLOSTRIDIUM DIFFICILE TOXIN/GDH WITH REFLEX TO PCR Routine 12/19/2021 10:18 AM TYRE FITTER documented in this encounter Results * C DIFF TOXIN W/REFL (12/19/2021 10:18 AM TYRE FITTER) C difficile Toxins/GDH w/refl to PCR [facility] Comment: ??CLOSTRIDIUM DIFFICILE TOXIN/GDH W/REFL TO PCR ?Micro Number: ?[id number] ??Test Status: ? Final ??Specimen Source: ?? Stool ??Specimen Quality: ??Adequate ??GDH Antigen: ? Not Detected ??Toxin A and B: ? Not Detected ??COMMENT: ? No toxigenic C. difficile detected ? For additional information, please refer to ? http://education.SameGrain.WSN Systems/faq/FYF240 ? (This link is being provided for ? informational/educational purposes only.) 12/19/2021 10:1 8 AM TYRE FITTER 12/20/2021 1:19 AM TYRE FITTER Narrative [facility] - 12/21/2021 5:41 PM TYRE FITTER FASTING:NO FASTING: NO us Anita Gillespie MD LAB MICROBIOLOGY - GENERAL ORDERABLES Final Result [facility] [address] [place] [address] documented in this encounter Visit Diagnoses Diagnosis Diarrhea, unspecified type- Primary documented in this encounter Care Teams Multiple Needle Stitcher Relationship Specialty Start Date End Date Guero Colunga DO PCP - General Internal Medicine 03/22/19 04/18/23 Amber Montesinos, SHAILESH Detail Supervisor Transplant 11/17/19 Jil Duncan MD Consulting Physician Infectious Diseases 01/10/20 Anita Gillespie MD Medical Oncologist/Mapping Technician Medical Oncology 10/07/20 Tabitha Hurley MD [address] [place] [address] Consulting Physician Rheumatology 10/22/21 documented as of this encounter
--- OUTSIDE RECORDS SUMMARY | 2024-10-28 06:15 | XMS_ITS | Encounter Summary ---
Author Organization [facility] Address [address] [place] [address] Phone Care Team Providers Care Bottle Gauger Name Role Phone Cristine Guero ZEPEDA Primary Care Provider [phone] Amber Montesinos RN Unavailable [phone] Jil Duncan MD Unavailable [phone] Anita Gillespie MD Unavailable [phone] Tabitha Hurley MD Unavailable [phone] Encounter Details Date Type Department Care Team (Latest Contact Info) Description 11/24/2021 7:40 AM PRODUCT MARKETING DIRECTOR Telemedicine [facility] Infectious Diseases [address] [place] [address] [address] [place] [address] Lisandra Auguste, SENIOR PRINCIPAL PROCESS ENGINEER [address] [place] [address] 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HCC) (Primary Dx) Social History Tobacco Use Types Packs/Day Years Used Date Smoking Tobacco: Never Smokeless Tobacco: Current Chew Alcohol Use Standard Drinks/Week Comments Yes 0 (1 standard drink = 0.6 oz pur e alcohol) occassional Sex and Gender Information Value Date Recorded Sex Assigned at Not on file Legal Sex Male 6:28 AM PRODUCT MARKETING DIRECTOR Gender Identity Not on file Sexual Orientation Straight 08/22/2021 9 :23 AM CDT documented as of this encounter Progress Notes * [place] Pet[place], SENIOR PRINCIPAL PROCESS ENGINEER - 11/24/2021 7:40 AM CST Infectious Disease Return Visit Patient Name: Beka Nichols [facility] INFECTIOUS DISEASES [address] [place] [id number] Subjective Chief complaint of CMV viremia HPI: [...] [place] [address]. He was also noted to have lymphadenopathy and left axillary lymph node biopsy was obtained on 10/07/21. CMV resistance testing also drawn on 10/07/21. ID recommended restarting Valganciclovir 900 mg PO BID along with letermovir 480 mg PO daily. He was unable to receive letermovir due to insurance issues but stated on valganciclovir on 10/08/21. Interval History: Telephone visit completed with patient today. He reports overall feeling well without any fevers, chills, or night sweats. He does report some diarrhea for about 3 weeks without abdominal pain/cramping or nausea. He remains on vanganciclovir 900 mg PO BID. He had labs drawn over the weekend that shows improving liver enzymes and normal creatinine. CMV level has not yet resulted but the last levelwas drawn on 11/15/21 and viral load was 4034. ROS: Review of Systems Constitutional: Negative for activity change, appetite change, chills, diaphoresis, fatigue, fever and unexpected weight change. Gastrointestinal: Positive for diarrhea. Negative for abdominal pain, constipation, nausea and vomiting. Musculoskeletal: Negative for arthralgias, joint swelling and myalgias. Skin: Negative for rash. Hematological: Negative for adenopathy. Objective Medical Conditions Diagnosis ??? Cytomegalovirus infection (HCC) ??? History of liver transplant (CMS/HCC) (HCC) ??? Idiopathic thrombocytopenic purpura (HCC) ??? 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 Autoimmune hepatitis (CMS/HCC) (HCC) ??? Hypogammaglobulinemia (CMS/HCC) (HCC) ??? 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 Immunocompromised patient (CMS/HCC) (HCC) ??? Lymphadenopathy ??? 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HCC) ??? Fever ??? Elevated LFTs ??? On antiviral therapy ??? Myalgia ??? Muscle weakness Allergies: Patient has no known allergies. HOME MEDICATIONS : tacrolimus (PROGRAF) 0.5 mg immediate-release capsule traZODone (DESYREL) 50 mg tablet ursodioL (ACTIGALL) 300 mg capsule valGANciclovir (Valcyte) 450 mg tablet IgG/hyaluronidase,recombinant (HYQVIA SUBQ) Lab/Microbiology/Radiology/Diagnostic Review: Laboratory: Lab Results Component Value Date WBC 8.8 11/15/2021 HGB 12.6 (L) 11/15/2021 HCT 36.9 (L) 11/15/2021 MCV 95.8 11/15/2021 LABPLAT 164 11/15/2021 Lab Results Component Value Date GLUCOSE 100 (H) 11/22/2021 CALCIUM 8.5 (L) 11/22/2021 SODIUM 141 11/22/2021 POTASSIUM 3.6 11/22/2021 CO2 26 11/22/2021 CHLORIDE 109 11/22/2021 BUNSER 9 11/22/2021 CREATININE 0.62 11/22/2021 Lab Results Component Value Date ALT 40 11/22/2021 AST 54 (H) 11/22/2021 ALKPHOS 226 (H) 11/22/2021 BILITOT 1.6 (H) 11/22/2021 Assessment/Plan 26 y.o. male male with history of refractory ITP s/p splenectomy in 2012, autoimmune hepatitis s/p liver transplant 03/30/19 c/b PTLD (c-Myc, EBV+) s/p CHOP x 1 (2016), DA=EPOCH-R x 5 (09/2017-12/2017)with IT MTX who achieved complete remission 12/2017 with intermittent CMV viremia since 06/2019. Now on Valcyte 900 mg PO BID. ?? Cytomegalovirus (CMV) viremia (CMS/HCC) - Remains on high dose Valcyte at [...] outpatient. We have also been speaking with [employer] regarding obtaining letermovir for him as it was denied byhis insurance company after an appeal. Will review [...] - Return in about 6 weeks (around 01/05/2022). Visit Diagnosis: 1. 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HCC) Lisandra Ramirez the Nurse Practitioner, have reviewed this patient with the supervising MD present in the office suite, Dr. Duncan. This was a telemedicine visit with Bekaprateek Nichols dante which took place via Telephone Inability orlack of knowledge to set up audio/visual visit. During the visit, I was located in the office and the patient was located at home in the [facility]. The patient visit started at 0750 and ended at 0800. My total encounter time on 11/24/2021 was 25 minutes which was spent in the activities documentedin the note. This includes time spent prior [...] understand thatthis service replaces an office visit. UCT MARKETING DIRECTOR documented in this encounter Miscellaneous Notes * Assessment & Plan Note - Lisandra Auguste NP - 11/24/2021 1:18 PM PRODUCT MARKETING DIRECTOR Associated Problem(s): 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HCC) - Remains on high dose Valcyte at [...] outpatient. We have also been speaking with [employer] regarding obtaining letermovir for him as it was denied byhis insurance company after an appeal. Will review [...] ID clinic with any questions or concerns UCT MARKETING DIRECTOR documented in this encounter Plan of Treatment Scheduled Orders Name Type Priority Associated Diagnoses Orde r Schedule CMV DNA QN, PCR Blood Microbiology Routine 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HCC) weekly for 12 Occurrences starting 11/24/2021 until 11/24/2022 Scheduled Procedures Name Priority Associated Diagnoses Date/Ti [...] by mouth 2 (two) times a day 01/19/2022 added in this encounter Care Teams Bottle Gauger Relationship Specialty Start Date End Date Guero Clounga DO PCP - General Internal Medicine 03/22/19 04/18/23 Amber Montesinos, SHAILESH Rn Icu Transplant 11/17/19 Jil Duncan MD Consulting Physician Infectious Diseases 01/10/20 Anita Gillespie MD Medical Oncologist/Project Archivist Medical Oncology 10/07/20 Tabitha Hurley MD [address] [facility] [address] [facility] [facility] [address] [place] [address] Consulting Physician Rheumatology 10/22/21 documented as of this encounter
--- OUTSIDE RECORDS SUMMARY | 2024-10-28 06:15 | XMS_ITS | Encounter Summary ---
Author Organization [facility] Address [address] [place] [address] Care Team Providers Care Onion Tier Name Role Phone Guero Colunga DO Primary Care Provider Amber Montesinos RN Unavailable [phone] Jil Duncan MD Unavailable [phone] Anita Gillespie MD Unavailable [phone] Tabitha Hurley MD Unavailable [phone] Encounter Details Date Type Department Care Team (Late st Contact Info) Description 11/14/2021 Documentation [facility] Transplant Liver [address] [address] [phone] [place] [address] Amber Montesinos RN Social History Tobacco Use Types Packs/Day Years Used Date Smoking Tobacco: Never Smokeless Tobacco: Current Chew Alcohol Use Standard Drinks/Week Comments Yes 0 (1 standard drink = 0.6 oz pur e alcohol) occassional Sex and Gender Information Value Date Recorded Sex Assigned at Not on file Legal Sex Male 6:28 AM TAIL TRIMMER Gender Identity Not on file Sexual Orientation Straight 08/22/2021 9: 23 AM CDT documented as of this encounter Progress Notes * Amber Vargas RN - 11/14/2021 4:31 PM CST Labs reviewed with Madelaine Martínez NP with transplant hepatology. Patient currently on tacro 0.5mg BID. Will confirm with patient if these are true troughs/any new medications or supplements. Have sent [employer] message to review. TRIMMER documented in this encounter Plan of Treatment Scheduled Procedures Name Priority Associated Diagnoses Date/Ti me COLONOSCOPY Encounter for screening for colorectal cancer in high risk patient Family history of rectal cancer documented as of this encounter Visit Diagnoses Not on filedocumented in this encounter Care Teams Onion Tier Relationship Specialty Start Date End Date Guero Colunga DO PCP - General Internal Medicine 03/22/19 04/18/23 Amber Montesinos, RN Electric Shovel Operator Transplant 11/17/19 Jil Duncan MD Consulting Physician Infectious Diseases 01/10/20 Anita Gillespie MD Medical Oncologist/Telecommunication Operator Medical Oncology 10/07/20 Tabitha Hurley MD [address] [facility] [address] [place] [address] Consulting Physician Rheumatology 10/22/21 documented as of this encounter
--- OUTSIDE RECORDS SUMMARY | 2024-10-28 06:15 | XMS_ITS | Encounter Summary ---
Author Organization [facility] Address [address] [place] [address] Phone Care Team Providers Care Drywall Sander Name Role Phone Cristine Guero DO Primary Care Provider [phone] Amber Montesinos RN Unavailable [phone] Jil Duncan MD Unavailable [phone] Anita Gillespie MD Unavailable [phone] Tabitha Hurley MD Unavailable [phone] Encounter Details Date Type Department Care Team (Late st Contact Info) Description 12/06/2021 Orders Only [facility] Gastroenterology [address] [facility] Advanced Medicine 8th [place] [address] [place] [address] Madelaine Martínez, AIDEN [address] [place] [address] Social History Tobacco Use Types Packs/Day Years Used Date Smoking Tobacco: Never Smokeless Tobacco: Current Chew Alcohol Use Standard Drinks/Week Comments Yes 0 (1 standard drink = 0.6 oz pur e alcohol) occassional Sex and Gender Information Value Date Recorded Sex Assigned at Not on file Legal Sex Male 6:28 AM HEALTH EDUCATION AIDE Gender Identity Not on file Sexual Orientation Straight 08/22/2021 9: 23 AM CDT documented as of this encounter Miscellaneous Notes * Result Encounter Note - Madelaine Martínez NP - 12/10/2021 4:34 PM HEALTH EDUCATION AIDE Labs reviewed. Bili and ALP slightly worse. CMV level 2,298 which is up from 1,593. Tac recently reduced. No changes for now but should repeat labs next week. ID is managing CMV, correct? TH EDUCATION AIDE documented in this encounter Plan of Treatment Scheduled Procedures Name Priority Associated Diagnoses Date/Ti me COLONOSCOPY Encounter for screening for colorectal cancer in high risk patient Family history of rectal cancer documented as of this encounter Procedures Procedure Name Priority Date/Time Associated Diagnosis Comments COPY(IES) SENT TO: Routine 12/06/2021 7: 17 AM HEALTH EDUCATION AIDE CMV DNA QN, PCR Routine 12/06/2021 7:17 AM HEALTH EDUCATION AIDE TACROLIMUS LEVEL, TROUGH Routine 12/06/2021 7:17 AM HEALTH EDUCATION AIDE CBC WITH AUTO DIFFERENTIAL Routine 12/06/2021 7:17 AM HEALTH EDUCATION AIDE GAMMA GT Routine 12/06/2021 7:17 AM HEALTH EDUCATION AIDE COMPREHENSIVE METABOLIC PANEL Routine 12/06/2021 7:17 AM HEALTH EDUCATION AIDE documented in this encounter Results * (ABNORMAL) CMV DNA QN, PCR (12/06/2021 7:17 AM HEALTH EDUCATION AIDE) SOURCE SERUM [facility], CMV DNA qn 2,298(H) IU/mL [facility], CMV DNA log IU/mL 3.36(H) Log IU/mL [facility], Comment: REFERENCE RANGE: NOT DETECTED This test was developed and its analytical performance characteristics have been determined by [employer]. It has not been cleared or approved by the U.S. Food and Drug Administration. This assay has been validated pursuant to the CLIA regulations and is used for clinical purposes. For additional information, please refer to http://education.[employer]oteX.Exiles/faq/CMVandEBVPCR (This link is being provided for informational/ educational purposes only.) 12/06/2021 7:17 AM HEALTH EDUCATION AIDE 12/06/2021 7:20 AM HEALTH EDUCATION AIDE Madelaine Martínez NP LAB MICROBIOLOGY - GENER AL ORDERABLES Final Result Performing Organization Address [facility] Co de Phone Number [employer], [address] [place] [address] * Tacrolimus level trough (12/06/2021 7:17 AM HEALTH EDUCATION AIDE) Pathologist [facility] Tacrolimus, highly Sensitive, LC/MS/MS 7.3 mcg/L [employer] Comment: No definitive therapeutic or toxic ranges have been established. Optimal blood drug levels are influenced by type of transplant, patient response, time post- transplant, co-administration of other drugs, and drug formulation. The following trough range is a suggested guideline: 5.0-20.0 mcg/L. This test was developed and its analytical performance characteristics have been determined by [employer]. It has not been cleared or approved by the FDA. This assay has been validated pursuant to the CLIA regulations and is used for clinical purposes. 12/06/2021 7:17 AM HEALTH EDUCATION AIDE 12/06/2021 7:20 AM HEALTH EDUCATION AIDE Madelaine Martínez NP LAB BLOOD ORDERABLES Fin al Result Performing Organization Address [facility] Co de Phone Number [employer] GroupMary Kate [address] [address] [place] [address] * (ABNORMAL) Comprehensive metabolic panel (12/06/2021 7:17 AM HEALTH EDUCATION AIDE) Pathologist [facility] Glucose 87 65 - 99 mg/dL [facility] Godoy Comment: ? Fasting reference interval BUN 11 7 - 25 mg/dL [facility] Creatinine 0.71 0.60 - 1.35 mg/dL [facility] eGFR NON-AFR. ARMENIAN 128 > OR = 60 mL/min/1. 73m2 [facility] EGFR 148 > OR = 60 mL/min/1. 73m2 [facility] BUN/creat ratio NOT APPLICABLE 6 - 22 (calc) [facility] Sodium 143 135 - 146 mmol/L [facility] Potassium, pl 4.1 3.5 - 5.3 mmol/L [facility] Chloride 112(H) 98 - 110 mmol/L [facility] CO2 23 20 - 32 mmol/L [facility] Calcium 8.7 8.6 - 10.3 mg/dL [facility] Protein, sr 5.6(L) 6.1 - 8.1 g/dL [facility] Albumin 4.1 3.6 - 5.1 g/dL [facility] GLOBULIN 1.5(L) 1.9 - 3.7 g/dL (calc) [facility] Alb/glob ratio 2.7(H) 1.0 - 2.5 (calc) [facility] Bilirubin, total 1.9(H) 0.2 - 1.2 mg/dL [facility] Alk phos 282(H) 36 - 130 U/L [facility] AST 43(H) 10 - 40 U/L [facility] ALT (SGPT) 34 9 - 46 U/L [facility] 12/06/2021 7:17 AM HEALTH EDUCATION AIDE 12/06/2021 7:20 AM HEALTH EDUCATION AIDE us Madelaine Martínez CISCO CERTIFIED INTERNETWORK EXPERT LAB BLOOD ORDERABLES Fin al Result [facility] [address] [place] [address] * (ABNORMAL) Gamma GT (12/06/2021 7:17 AM HEALTH EDUCATION AIDE) GGT 104(H) 3 - 70 U/L [facility] 12/06/2021 7:17 AM HEALTH EDUCATION AIDE 12/06/2021 7:20 AM HEALTH EDUCATION AIDE Madelaine Martínez CISCO CERTIFIED INTERNETWORK EXPERT LAB BLOOD ORDERABLES Fin al Result [facility] [address] [place] [address] * (ABNORMAL) CBC with auto differential (12/06/2021 7:17 AM HEALTH EDUCATION AIDE) WBC 8.8 3.8 - 10.8 Thousand/u L [facility] RBC, POC 3.91(L) 4.20 - 5.80 Million/uL [facility] Hgb 13.4 13.2 - 17.1 g/dL [facility] Hct 37.7(L) 38.5 - 50.0 % [facility] MCV 96.4 80.0 - 100.0 fL [facility] MCH 34.3(H) 27.0 - 33.0 pg [facility] MCHC 35.5 32.0 - 36.0 g/dL [facility] Rdw 16.4(H) 11.0 - 15.0 % [facility] Platelets 128(L) 140 - 400 Thousand/u L [facility] MPV 11.9 7.5 - 12.5 fL [facility] Neutrophils, abs 3,766 1,500 - 7,800 cells/uL [facility] Lymphocytes, abs 3,608 850 - 3,900 cells/uL [facility] Monocyte abs 1,294(H) 200 - 950 cells/uL [facility] Eosinophils, abs 62 15 - 500 cells/uL [facility] Basophils, abs 70 0 - 200 cells/uL [facility] Neutrophils 42.8 % [facility] Lymphocyte pct 41.0 % [facility] Monocytes 14.7 % [facility] Eosinophils 0.7 % [facility] Basophils 0.8 % [facility] 12/06/2021 7:17 AM HEALTH EDUCATION AIDE 12/06/2021 7:20 AM HEALTH EDUCATION AIDE Madelaine Martínez CISCO CERTIFIED INTERNETWORK EXPERT LAB BLOOD ORDERABLES Fin al Result [facility] [address] [facility] [place] [address] * COPY(IES) SENT TO: (12/06/2021 7:17 AM HEALTH EDUCATION AIDE) COPY(IES) SENT TO: JESSIE Comment: ?[facility] LIVER - COPY TO ACCT ?[address] [facility] ?[place] [address] 12/06/2021 7:17 AM HEALTH EDUCATION AIDE 12/06/2021 7:20 AM HEALTH EDUCATION AIDE Madelaine Martínez CISCO CERTIFIED INTERNETWORK EXPERT LAB BLOOD ORDERABLES Fin al Result [facility] documented in this encounter Visit Diagnoses Not on filedocumented in this encounter Care Teams Drywall Sander Relationship Specialty Start Date End Date Guero Colunga DO PCP - General Internal Medicine 03/22/19 04/18/23 Amber Montesinos, SHAILESH Topography Technician Transplant 11/17/19 Jil Duncan MD Consulting Physician Infectious Diseases 01/10/20 Anita Gillespie MD Medical Oncologist/Tank Inspector Medical Oncology 10/07/20 Tabitha Hurley MD [address] [facility] [address] [place] [address] Consulting Physician Rheumatology 10/22/21 documented as of this encounter
--- OUTSIDE RECORDS SUMMARY | 2024-10-28 06:15 | XMS_ITS | Encounter Summary ---
Author Organization [facility] Address [address] [place] [address] Phone Care Team Providers Care Banking Analyst Name Role Phone Guero Colunga DO Primary Care Provider [phone] Amber Montesinos RN Unavailable [phone] Jil Duncan MD Unavailable [phone] Anita Gillespie MD Unavailable [phone] Tabitha Hurley MD Unavailable [phone] Reason for Referral * (Routine) - Closed Specialty Diagnoses / Procedures Referred By Contac t Referred To Contact Diagnoses Muscle weakness Procedures Pulmonary Function Test -[facility]- [facility]-8D; SPI sitting and Supine Jan Bailon MD [address] [place] [address] Phone: tel: fax: Referral ID Status Reason Start Date Expiration Date Visits Re quested Visits Authorized [id number] Closed 08/28/2021 09/27/2022 1 1 EY BRAKEMAN Reason for Visit * (Routine) - Closed Specialty Diagnoses / Procedures Referred By Contac t Referred To Contact Diagnoses Muscle weakness Procedures Pulmonary Function Test -[facility]- [facility]-8D; SPI sitting and Supine Jan Bailon MD [address] [place] [address] Phone: tel: fax: Referral ID Status Reason Start Date Expiration Date Visits Re quested Visits Authorized [id number] Closed 08/28/2021 09/27/2022 1 1 Encounter Details Date Type Department Care Team (Latest Contact Info) Description 11/12/2021 7:50 AM DINKEY BRAKEMAN - 11/12/2021 11:59 PM DINKEY BRAKEMAN Hospital Encounter [facility] Pulmonary [address] [place] [address] Muscle weakness Discharge Disposition: Discharge to home or self care Social History Tobacco Use Types Packs/Day Years Used Date Smoking Tobacco: Never Smokeless Tobacco: Current Chew Alcohol Use Standard Drinks/Week Comments Yes 0 (1 standard drink = 0.6 oz pur e alcohol) occassional Sex and Gender Information Value Date Recorded Sex Assigned at Not on file Legal Sex Male 6:28 AM DINKEY BRAKEMAN Gender Identity Not on file Sexual Orientation Straight 08/22/2021 9: 23 AM CDT documented as of this encounter Medications at Time of Discharge valGANciclovir (VALCYTE) 450 mg tablet Take 2 tablets (900 mg total) by mouth 2 (two) times a day 120 tablet 10/20/2021 11/19/2021 IgG/hyaluronidas e,recombinant (HYQVIA SUBQ) Inject under the skin 12/27/2021 letermovir (PREVYMIS) 480 mg tablet Take 1 tablet (480 mg total) by mouth daily 30 tablet 10/06/2021 03/06/2022 tacrolimus (PROGRAF) 0.5 mg immediate-releas e capsule TAKE 1 CAPSULE BY MOUTH TWICE DAILY 60 capsule 11 06/25/2021 12/08/2021 traZODone (DESYREL) 50 mg tablet Take 1 [...] Scheduled Procedures Name Priority Associated Diagnoses Date/Ti wy COLONOSCOPY Encounter for screening for colorectal cancer in high risk patient Family history of rectal cancer documented as of this encounter Procedures Procedure Name Priority Date/Time Associated Diagnosis Comments PULMONARY FUNCTION TEST (PFT) Routine 11/12/2021 8:03 AM DINKEY BRAKEMAN Muscle weakness documented in this encounter Results * Pulmonary Function Test - (11/12/2021 8:03 AM DINKEY BRAKEMAN) FVC PRE 3.19 L [facility] FVC %PRE PRED 64 % [facility] FEV1 PRE 2.58 L [facility] FEV1 %PRE PRED 62 % [facility] FEV1/FVC PRE 80.9 % [facility] Anatomical Region Laterality Modality PFT 11/12/2021 7:56 AM DINKEY BRAKEMAN Narrative 11/17/2021 7:29 AM DINKEY BRAKEMAN SEE PDF PFT performed at:->[facility] Procedure:->SPI sitting and Supine Jan Bailon MD PFT ORDERABLES Final Result documented in this encounter Visit Diagnoses Diagnosis Muscle weakness Muscle weakness (generalized) documented in this encounter Care Teams Banking Analyst Relationship Specialty Start Date End Date Guero Colunga DO PCP - General Internal Medicine 03/22/19 04/18/23 Amber Montesinos, SHAILESH Water Pump Servicer Transplant 11/17/19 Jil Duncan MD Consulting Physician Infectious Diseases 01/10/20 Anita Gillespie MD Medical Oncologist/Cloth Carrier Medical Oncology 10/07/20 Tabitha Hurley MD [address] [facility] [address] [place] [address] Consulting Physician Rheumatology 10/22/21 documented as of this encounter
--- OUTSIDE RECORDS SUMMARY | 2024-10-28 06:15 | XMS_ITS | Encounter Summary ---
Author Organization [facility] Address [address] [place] [address] Care Team Providers Care Correctional Manager Name Role Phone Guero Colunga Primary Care Provider [phone] Amber Montesinos RN Unavailable [phone] Jil Duncan MD Unavailable [phone] Anita Gillespie MD Unavailable [phone] Tabitha Hurley MD Unavailable [phone] Encounter Details Date Type Department Care Team (Late st Contact Info) Description 12/16/2021 Telephone [facility] Radiology [address] [place] [address] Neeta Ahn RN Social History Tobacco Use [...] Telephone Encounter - Neeta Ahn RN - 12/16/2021 4:55 PM CST Preprocedure Phone Call Procedure Time Verified: Yes Arrival Time Verified: Yes Procedure Location Verified: Yes Medical History Reviewed: No NPO Status Reinforced: No Ride and Caregiver Arranged: Yes Patient Knows to Bring Current Medications: Yes Patient Knows to Bring CPAP: No Is Patient on Home Ventilator?: No Is Patient on Blood Thinners?: No ER HAND documented in this encounter Plan of Treatment Scheduled Procedures Name Priority Associated Diagnoses Date/Ti me COLONOSCOPY Encounter for screening for colorectal cancer in high risk patient Family history of rectal cancer documented as of this encounter Visit Diagnoses Not on filedocumented in this encounter Care Teams Correctional Manager Relationship Specialty Start Date End Date Guero Colunga DO PCP - General Internal Medicine 03/22/19 04/18/23 Amber Montesinos, SHAILESH Paper Conservator Transplant 11/17/19 Jil Duncan MD Consulting Physician Infectious Diseases 01/10/20 Anita Gillespie MD Medical Oncologist/Manager Primary Care Medical Oncology 10/07/20 Tabitha Hurley MD [address] [facility] [address] [facility] [address] [place] [address] Consulting Physician Rheumatology 10/22/21 documented as of this encounter
--- OUTSIDE RECORDS SUMMARY | 2024-10-28 06:15 | XMS_ITS | Encounter Summary ---
Author Organization [facility] Address [address] [place] [address] Phone Care Team Providers Care Microsoft Dynamics Ax Consultant Name Role Phone Guero Colunga Primary Care Provider [phone] Amber Montesinos RN Unavailable [phone] Jil Duncan MD Unavailable [phone] Anita Gillespie MD Unavailable [phone] Tabitha Hurley MD Unavailable [phone] Reason for Visit * Auth/Cert Specialty Diagnoses / Procedures Referred By Contac t Referred To Contact Referral ID Status Reason Start Date Expiration Date Visits Re quested Visits Authorized [id number] 1 1 Encounter Details Date Type Department Care Team (Latest Contact Info) Description 12/20/2021 9:15 AM ECONOMICS CONSULTANT Home Care Visit [facility] [address] [address] [address] [place] [address] Juanita Martin RN SN NON OASIS START OF CARE [...] on file Legal Sex Male 6:28 AM ECONOMICS CONSULTANT Gender Identity Not on file Sexual Orientation Straight 08/22/2021 9: 23 AM CDT documented as of this encounter Last Filed Vital Signs Vital Sign Reading Time Taken Comments Blood Pressure 100/62 12/20/2021 9:10 AM ECONOMICS CONSULTANT Pulse 111 12/20/2021 9:10 AM ECONOMICS CONSULTANT Temperature 37.1 ??C (98.8 ??F) 12/20/2021 9:10 AM CS T Respiratory Rate 16 12/20/2021 9:10 AM ECONOMICS CONSULTANT Oxygen Saturation 99% 12/20/2021 9:10 AM ECONOMICS CONSULTANT Inhaled Oxygen Concentration - - Weight 49.9 kg (110 lb) 12/20/2021 9:10 AM ECONOMICS CONSULTANT Height 172.7 cm (5' 8 ) 12/20/2021 9:10 AM ECONOMICS CONSULTANT Body Mass Index 16.73 12/20/2021 9:10 AM ECONOMICS CONSULTANT documented in this encounter Plan of Treatment [...] Dose Rate Site 0.9 % sodium chloride ([facility] sodium chloride 0.9%) injection 10 mL, intravenous, As needed, line care, Starting on 12/21/21 at 2249, Indications: line patencyIndications:line patency Given 12/20/2021 9:30 AM ECONOMICS CONSULTANT 50 mL ganciclovir (CYTOVENE) 500 mg injection 285 mg, intravenous, Every 12 hours, First dose on 12/21/21 at 2345, For 30 days, Indications: cytomegalovirus diseaseIndications:cytomegalovirus disease Given 12/20/2021 9:45 AM ECONOMICS CONSULTANT 285 mg heparin lock flush, porcine, 10 unit/mL solution 5 mL, intravenous, As needed, line patency, Starting on 12/21/21 at 2250, Indications: Maintain Patency of Indwelling Vascular CatheterIndications:Maintain Patency of Indwelling Vascular Catheter Given 12/20/2021 9:30 AM ECONOMICS CONSULTANT 10 mL documented in this encounter Home Health Visit - Care Plan Visit Details Visit Type -SN Non-OASIS Sta rt of Care Discipline -Assisted Problems Problem Description Start Date Status Goals Interventions Medications Disciplines: Assisted Management of IV Medications 12/20/2021 Active - 2 problem interventions scheduled/documen mohsen in this visit Need to Collect Specimen Sample Disciplines: Assisted Need to collect specimen sample 12/20/2021 Active - 1 problem intervention scheduled/documen mohsen in this visit Safety concerns Disciplines: Assisted Safety needs related to infusion administration 12/20/2021 Active - 1 problem intervention scheduled/documen mohsen in this visit Learning/Teachin g Needs - IV Therapy Disciplines: Assisted Teaching and learning needs for performing home IV therapy 12/20/2021 Active - 6 problem interventions scheduled/documen mohsen in this visit Monitor patient's vital signs every home health visit Disciplines: SN, PT, OT, WAFER 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, GIN CLERK, Skilled Disciplines Monitor patient's vital signs every home health visit. 12/20/2021 Active 1 goal linked to scheduled/docume nted intervention 2 goal interventions scheduled/documen mohsen in this visit Infection [...] visit during episode of care Description: Home purchasing clerk to measure vital signs during every home [...] allergies, and potential complications. Problem:Medications Completed Medications reconciled. IV Infusion Description: Instruct patient/caregiver on IV infusion: Gancyclovir Problem:Medications Completed Patient/caregiver expressed appropriate understanding Lab draw Description: Labs Weekly CBC, CMP, CMV PCR Tacrolimus trough and GGT Please fax a copy of all lab results to [facility] at [phone] Fax also to Liver Transplant [phone] Problem:Need to Collect Specimen Sample Completed CBC/diff, CMP, CMV PCR, GGT, and tacrolimus trough obtained via PICC per protocol and specimen to laboratory. Instruct on IV complications Description: Instruct patient/caregiver on how to manage breaks in line, signs/symptoms of complications, who to contact for complications and how to contact the nurse, MD and infusion service Problem:Safety concerns Completed Patient/caregiver expressed appropriate understanding Instruct on IV supplies Description: Instruct patient/caregiver in how to gather supplies, how to restock IV supplies in the home, prepare supplies, administer IV medication and disconnect IV medication, inspecting solution and supplies before infusing, and waste disposal. Problem:Learning/Teac kofi Needs - IV Therapy Completed Patient/caregiver expressed appropriate understanding Instruct Infection Prevention Description: Instruct patient/caregiver in strategies to prevent infection. Instruct patient/caregiver on how to recognize signs and symptoms of infection and when to notify HH nurse and/or physician. Problem:Learning/Teac kofi Needs - IV Therapy Completed Patient/caregiver expressed appropriate understanding IV Administration Description: Skilled Nurse to instruct patient/caregiver on how to properly administer medication saline and heparin. Skilled Nurse to instruct patient/caregiver to administer IV medication as ordered including saline and heparin flushes. Reason for Therapy: IV Gancyclovir. Problem:Learning/Teac kofi Needs - IV Therapy Completed Patient/caregiver expressed appropriate understanding Dressing change Description: Skilled [...] Problem:Learning/Teac kofi Needs - IV Therapy Completed Patient/caregiver expressed appropriate understanding Instruct on IV flush Description: Instruct patient/caregiver in how to perform flushing of IV line according to MD orders or protocol. Problem:Learning/Teac kofi Needs - IV Therapy Completed Patien/caregiver expressed appropriate understanding Monitor Vital Signs Description: Monitor blood pressure, pulse, oxygen saturation, respirations Problem:Monitor patient's vital signs every home health visit Goal:Measure vital signs during every home health visit during episode of care Completed Supervising Discipline notification of abnormal vital signs Description: Use standardized clinical guidelines of abnormal vitals signs to report to supervising discipline. (SBP 90-160, DBP 40-90, O2Sat 88-100%, temporal temp less than 101.5) Problem:Monitor patient's vital signs every home health visit Goal:Measure vital signs during every home health visit during episode of care Completed Heart rate, blood pressure, weight, report of frequent watery stools reported to Infectious Disease MD data operations director. No new orders or changes in plan of care received. Educate Patient on Infection Prevention Description: Instruct patient on signs and symptoms of infection IE: fever, odor, change in color, increased amount of drainage, purulent drainage, warmth. Problem:Infection Prevention Goal:Verbalize signs of infection Completed Patient/caregiver expressed appropriate understanding Educate Family on Infection Prevention Description: Instructed family on signs and symptoms of infection IE: fever, odor, change in color, increased amount of drainage, purulent drainage, warmth. Problem:Infection Prevention Goal:Verbalize signs of infection Completed Patient/caregiver expressed appropriate understanding Aspects of Care Description: Instruct patient/caregiver on universal precautions and home infection control measures Problem:Infection Prevention Goal:Verbalize signs of infection Completed Patient/caregiver expressed appropriate understanding Assess safety Description: Assess patient safety Problem:Safety concerns Goal:Demonstrate use of safety precautions Completed Patient is safe at home. Instruct Fall Prevention Description: Instruct patient/caregiver in methods to prevent falls Problem:Safety concerns Goal:Demonstrate use of safety precautions Scheduled documented in this encounter Home Health Visit - Actions and Narratives Actions [id number] This RN spoke with Dr Marcelle Damon and reported HR, BP, dry mouth, weight, and watery diarrhea. Pt spoke with Dr Damon as well. No changes made in plan of care. documented in this encounter Care Teams Microsoft Dynamics Ax Consultant Relationship Specialty Start Date End Date Cristine Guero PCP - General Internal Medicine 03/22/19 04/18/23 Amber Montesinos, SHAILESH Plant Operations Vice President Transplant 11/17/19 Jil Duncan MD Consulting Physician Infectious Diseases 01/10/20 Anita Gillespie MD Medical Oncologist/Leather Production Machine Operator Medical Oncology 10/07/20 Tabitha Hurley MD [address] [facility] [address] [place] [address] Consulting Physician Rheumatology 10/22/21 documented as of this encounter
--- OUTSIDE RECORDS SUMMARY | 2024-10-28 06:15 | XMS_ITS | Encounter Summary ---
Author Organization [facility] Healthcare Address [address] [place] [address] Care Team Providers Care Leather Sponger Name Role Phone Guero Colunga Primary Care Provider [phone] Amber Montesinos RN Unavailable [phone] Jil Duncan MD Unavailable [phone] Anita Gillespie MD Unavailable [phone] Tabitha Hurley MD Unavailable [phone] Reason for Referral * Diagnostic Imaging (Routine) - Closed Specialty Diagnoses / Procedures Referred By Sascha rey Referred To Contact Radiology Diagnoses Cytomegalovirus (CMV) viremia (CMS/HCC) (HCC) Procedures IR PICC Line Placement Over 5 Years of Age Consult to Interventional Radiology Lisandra Auguste NP [address] [place] [address] Phone: tel: fax: [address] [phone] Referral ID Status Reason Start Date Expiration Date Visits Re quested Visits Authorized [id number] Closed 12/15/2021 01/14/2023 1 1 R ACCOUNT 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 Reason for Visit * Diagnostic Imaging (Routine) - Closed Specialty Diagnoses / Procedures Referred By Contac t Referred To Contact Radiology Diagnoses Cytomegalovirus (CMV) viremia (CMS/HCC) (HCC) Procedures IR PICC Line Placement Over 5 Years of Age Consult to Interventional Radiology [place]is[place] Petty NP [address] [facility] [address] [place] [address] Phone: tel: fax: [address] [phone] Referral ID Status Reason Start Date Expiration Date Visits Re quested Visits Authorized [id number] Closed 12/15/2021 01/14/2023 1 1 Encounter Details Date Type Department Care Team (Late st Contact Info) Description 12/19/2021 6:59 AM MAJOR ACCOUNT 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 - 12/19/2021 9:19 AM MAJOR ACCOUNT 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 Hospital Encounter [facility]iology [facility] [place] [address] [place] [address] Сергей Adkins MD [address] [place] [address] Cytomegalovirus (CMV) viremia (CMS/HCC) (HCC) Discharge Disposition: [...] on file Legal Sex Male 6:28 AM MAJOR ACCOUNT 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 Gender Identity Not on file Sexual Orientation Straight 08/22/2021 9: 23 AM CDT documented as of this encounter Last Filed Vital Signs Vital Sign Reading Time Taken Comments Blood Pressure 113/74 12/19/2021 9:05 AM MAJOR ACCOUNT 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 Pulse 74 12/19/2021 9:05 AM MAJOR ACCOUNT 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 Temperature 36.1 ??C (97 ??F) 12/19/2021 9:05 AM MAJOR ACCOUNT 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 Respiratory Rate 18 12/19/2021 9:05 AM MAJOR ACCOUNT 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 Oxygen Saturation 99% 12/19/2021 9:05 AM MAJOR ACCOUNT 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 Inhaled Oxygen Concentration - - Weight - - Height - - Body Mass Index - - documented in this encounter Discharge Diagnoses Diagnosis Encounter for adjustment and management of vascular access device - ENCOUNTER FOR ADJUSTMENT AND MANAGEMENT OF VASCULAR ACCESS DEVICE Cytomegaloviral disease, unspecified (HCC) - CYTOMEGALOVIRAL DISEASE, UNSPECIFIED documented in this encounter Discharge Instructions * Discharge Instructions* Katy Oliveira MD - 12/19/2021 8:53 AM MAJOR ACCOUNT 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 Interventional Radiology Outpatient Discharge Instructions/Note Diagnosis: CMV viremia Procedure: Rt PICC Limitations: [x] No lifting greater than 5 pounds with [] Right [] Left arm for 7 days. [...] or sedatives unless approved by your doctor. Procedure Site Care: [] teaching sheet given [] Skin glue was used to close your incision. See teaching sheet. [x] Keep site clean and dry. [x] You may shower tomorrow. [] Change the dressing daily and if it becomes wet or dirty. [x] Cover entire area with plastic and tape down edges before showering to keep site clean and dry. To contact an Interventional Radiologist at [facility] call [phone] Wednesday through Wednesday from 7:30am-3:30pm. Special instructions: [...] at Please come to: [] 3rd Floor [facility] [] 4th floor [facility] [] [facility] [] [facility] Please call [phone] to schedule a follow up appointment. You need to return in R ACCOUNT 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 documented in this encounter Medications at Time of Discharge amoxicillin-clav ulanate (AUGMENTIN) 875-125 mg per tablet Take 875 mg by mouth 2 (two) times a day 12/16/2021 12/24/2021 ganciclovir (CYTOVENE) 500 mg injectionIndicat ions:cytomegalov irus disease Infuse 5.7 mL (285 mg total) into a venous catheter every 12 (twelve) hours 342 mL 12/05/2021 01/04/2022 IgG/hyaluronidas e,recombinant (HYQVIA SUBQ) Inject under the [...] times a day 120 tablet 11/13/2020 03/06/2022 valGANciclovir (VALCYTE) 450 mg tablet Take 900 mg by mouth 2 (two) times a day 01/19/2022 documented as of this encounter Discharge Disposition Disposition Code Departure Means Destination Discharge to home or self care documented in this encounter Miscellaneous Notes * Post-Procedure Note - Katy Oliveira MD - 12/19/2021 8:51 AM MAJOR ACCOUNT 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 Radiology Brief Post Procedure Note Attending: Dr. Rizo Vp Corporate Development: Dr. Oliveira and Dr. 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 R ACCOUNT 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 * Pre-Procedure Note - Katy Oliveira MD - 12/19/2021 8:00 AM MAJOR ACCOUNT 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 Radiology Procedure Plan Indication: CMV Viremia Planned Procedure: PICC R ACCOUNT 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 documented in this encounter Plan of Treatment Scheduled Procedures Name Priority Associated Diagnoses Date/Ti me COLONOSCOPY Encounter for screening for colorectal cancer in high risk patient Family history of rectal cancer documented as of this encounter Procedures Procedure Name Priority Date/Time Associated Diagnosis Comments IR PICC LINE PLACEMENT > 5 YEARS Schedule Routine, Read Routine (OP Routine) 12/19/2021 8:55 AM MAJOR ACCOUNT 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 Cytomegalovirus (CMV) viremia (CMS/HCC) (HCC) documented in this encounter Results * IR PICC Line Placement Over 5 Years of Age (12/19/2021 8:55 AM MAJOR ACCOUNT 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) Anatomical Region Laterality Modality Body N/A Radio Fluoroscop y 12/19/2021 5:24 PM MAJOR ACCOUNT 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 Impressions 12/22/2021 7:17 AM MAJOR ACCOUNT 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 Successful nontunneled catheter placement. PLAN: The catheter [...] Parish Rizo MD Narrative 12/22/2021 7:17 AM MAJOR ACCOUNT 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 EXAMINATION: ??NONTUNNELED CENTRAL VENOUS CATHETER PLACEMENT (STD) [...] was obtained. ??Prior to beginning the procedure, [place] Protocol was used to confirm the patient's [...] was obtained. Prior to beginning the procedure, [place] Protocol was used to confirm the patient's [...] it. Electronically signed by: Parish Rizo MD us Lisandra Auguste NP IMG IR PROCEDURES Final R esult documented in this encounter Visit Diagnoses Diagnosis 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 documented in this encounter Administered Medications Inactive Administered Medications - up to 3 most recent administrations Medication Order MAR Action Action Date Dose Rate Site heparin 100 unit/mL injection Code/trauma/sedation medication, Starting on Wed12/19/21 at 0851, Indications: Maintain Patency of Indwelling Vascular CatheterIndications:Maintain Patency of Indwelling Vascular Catheter Given 12/19/2021 8:51 AM MAJOR ACCOUNT 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 5 mL lidocaine (XYLOCAINE) 10 mg/mL (1 %) injection Code/trauma/sedation medication, Starting on Wed12/19/21 at 0840, Intra-Procedure (IR), Indications: Administration of Local AnesthesiaIndications:Administr ation of Local Anesthesia Given 12/19/2021 8:40 AM MAJOR ACCOUNT 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 5 mL Right Arm documented in this encounter Historical Medications * This list may reflect changes made after this encounter. amoxicillin-clavu lanate (AUGMENTIN) 875-125 mg per tablet Take 875 mg by mouth 2 (two) times a day 12/16/2021 12/24/2021 added in this encounter Active and Recently Administered Medications Times are shown in MAJOR ACCOUNT 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. PRN Medication Order 12/17/2021 12/18/2021 12/19/2021 heparin 100 unit/mL injection (COMPLETED) Code/trauma/sedation medication, Starting on Wed12/19/21 at 0851, Indications: Maintain Patency of Indwelling Vascular Catheter 0851 (Given - Provid er: Genaro Hernandez MD) lidocaine (XYLOCAINE) 10 mg/mL (1 %) injection (COMPLETED) Code/trauma/sedation medication, Starting on Wed12/19/21 at 0840, Intra-Procedure (IR), Indications: Administration of Local Anesthesia 0840 (Given - Provid er: Katy Oliveira MD) documented in this encounter Care Teams Leather Sponger Relationship Specialty Start Date End Date Guero Colunga DO PCP - General Internal Medicine 03/22/19 04/18/23 Amber Montesinos, SHAILESH Precinct Police Captain Transplant 11/17/19 Jil Duncan MD Consulting Physician Infectious Diseases 01/10/20 Anita Gillespie MD Medical Oncologist/Airport Attendant Medical Oncology 10/07/20 Tabitha Hurley MD [address] [address] Consulting Physician Rheumatology 10/22/21 documented as of this encounter
--- OUTSIDE RECORDS SUMMARY | 2024-10-28 06:15 | XMS_ITS | Encounter Summary ---
Author Organization [facility] Address [address] [place] [address] Phone Care Team Providers Care Director Of Manufacturing Name Role Phone Guero Colunga DO Primary Care Provider [phone] Amber Montesinos RN Unavailable [phone] Jil Duncan MD Unavailable [phone] Anita Gillespie MD Unavailable [phone] Tabitha Hurley MD Unavailable [phone] Encounter Details Date Type Department Care Team (Late st Contact Info) Description 11/12/2021 Telephone [facility] Infectious Diseases [address] [place] [address] Sherin Porras, [facility] Social History Tobacco Use Types Packs/Day Years Used Date Smoking Tobacco: Never Smokeless Tobacco: Current Chew Alcohol Use Standard Drinks/Week Comments Yes 0 (1 standard drink = 0.6 oz pur e alcohol) occassional Sex and Gender Information Value Date Recorded Sex Assigned at Not on file Legal Sex Male 6:28 AM MERCHANDISE FOR RESALE PURCHASING AGENT Gender Identity Not on file Sexual Orientation Straight 08/22/2021 9: 23 AM CDT documented as of this encounter Miscellaneous Notes * Telephone Encounter - Jil Duncan MD - 11/21/2021 7:10 PM MERCHANDISE FOR RESALE PURCHASING AGENT Response to the message: I agree with Lisandra. Options would be to try IV ganciclovir or add letemovir and see. It is still worrisome that the CMV is detectable . We can discuss options with him Wednesday AM. HANDISE FOR RESALE PURCHASING AGENT * Telephone Encounter - Ny Griffin - 11/13/2021 10:05 AM CST I called them back and let them know it had been denied from his insurance and they will update theassistance department HANDISE FOR RESALE PURCHASING AGENT * Telephone Encounter - Lisandra Auguste NP - 11/13/2021 9:29 AM MERCHANDISE FOR RESALE PURCHASING AGENT I have not prescribed Keytruda. We have been trying to get him letermovir through the [employer] assistance as it has been denied by his insurance. CMV level over the weekend is slightly better but still elevated at 3397. I would like to try and get hi on the letermovir if possible as he is still viremic with high dose valganciclovir. HANDISE FOR RESALE PURCHASING AGENT * Telephone Encounter - Ny Griffin - 11/12/2021 4:13 PM CST I thought I had sent this earlier, see below HANDISE FOR RESALE PURCHASING AGENT * Telephone Encounter - Ny Griffin - 11/12/2021 1:43 PM CST I do not see where this has been scribed for him? HANDISE FOR RESALE PURCHASING AGENT * Telephone Encounter - Lili Nolasco RN - 11/12/2021 1:34 PM MERCHANDISE FOR RESALE PURCHASING AGENT Here it is, forward back to me if you need to. No problem. HANDISE FOR RESALE PURCHASING AGENT * Telephone Encounter - Sherin Porras - 11/12/2021 1:07 PM CST The [employer] Program called regarding an appeal for the Keytruda medication, they were following up on it. For questions, call [phone] HANDISE FOR RESALE PURCHASING AGENT documented in this encounter Plan of Treatment Scheduled Procedures Name Priority Associated Diagnoses Date/Ti me COLONOSCOPY Encounter for screening for colorectal cancer in high risk patient Family history of rectal cancer documented as of this encounter Visit Diagnoses Not on filedocumented in this encounter Care Teams Director Of Manufacturing Relationship Specialty Start Date End Date Guero Colunga DO PCP - General Internal Medicine 03/22/19 04/18/23 Amber Montesinos RN Massage Operator Transplant 11/17/19 Jil Duncan MD Consulting Physician Infectious Diseases 01/10/20 Anita Gillespie MD Medical Oncologist/Deskidding Machine Operator Medical Oncology 10/07/20 Tabitha Hurley MD [address] [facility] [address] [place] [address] Consulting Physician Rheumatology 10/22/21 documented as of this encounter
--- OUTSIDE RECORDS SUMMARY | 2024-10-28 06:15 | XMS_ITS | Encounter Summary ---
Author Organization [facility] Healthcare Address [address] [place] [address] Care Team Providers Care Mineral Mixer Name Role Phone Guero Colunga DO Primary Care Provider [phone] Amber Montesinos RN Unavailable [phone] Jil Duncan MD Unavailable [phone] Anita Gillespie MD Unavailable [phone] Tabitha Hurley MD Unavailable [phone] Encounter Details Date Type Department Care Team (Late st Contact Info) Description 12/09/[address] [facility] Transplant Liver [address] [address] [phone] [place] [address] Amber Montesinos RN Social History Tobacco Use Types Packs/Day Years Used Date Smoking Tobacco: Never Smokeless Tobacco: Current Chew Alcohol Use Standard Drinks/Week Comments Yes 0 (1 standard drink = 0.6 oz pur e alcohol) occassional Sex and Gender Information Value Date Recorded Sex Assigned at Not on file Legal Sex Male 6:28 AM POWER ORIGINATOR Gender Identity Not on file Sexual Orientation Straight 08/22/2021 9: 23 AM CDT documented as of this encounter Miscellaneous Notes * Telephone Encounter - Eli Brink - 12/09/2021 1:14 PM CST Duplicate standing order now deleted in [employer] R ORIGINATOR * Telephone Encounter - Amber Vargas RN - 12/09/2021 12:58 PM POWER ORIGINATOR Victorina, I spoke to [employer]. The customer service officer said something about us having multiple standing orders for this patient in [employer]. Not sure which one is correct but you can just delete whichever one does not have weekly CBC, CMP, GGT, direct bilirubin, and CMV qn PCR? Thank you Per [employer] rep, unable to add direct bilirubin to previous labs. R ORIGINATOR documented in this encounter Plan of Treatment Scheduled Procedures Name Priority Associated Diagnoses Date/Ti me COLONOSCOPY Encounter for screening for colorectal cancer in high risk patient Family history of rectal cancer documented as of this encounter Visit Diagnoses Not on filedocumented in this encounter Care Teams Mineral Mixer Relationship Specialty Start Date End Date Guero Colunga DO PCP - General Internal Medicine 03/22/19 04/18/23 Amber Montesinos, SHAILESH Clinical Review Specialist Transplant 11/17/19 Jil Duncan MD Consulting Physician Infectious Diseases 01/10/20 Anita Gillespie MD Medical Oncologist/Irish Moss Gatherer Medical Oncology 10/07/20 Tabitha Hurley MD [address] [facility] 14 [place] [address] Consulting Physician Rheumatology 10/22/21 documented as of this encounter
--- OUTSIDE RECORDS SUMMARY | 2024-10-28 06:15 | XMS_ITS | Encounter Summary ---
Author Organization [facility] Address [address] [place] [address] Phone Care Team Providers Care Acting Teacher Name Role Phone Guero Colunga DO Primary Care Provider [phone] Amber Montesinos RN Unavailable [phone] Jil Duncan MD Unavailable [phone] Anita Gillespie MD Unavailable [phone] Tabitha Hurley MD Unavailable [phone] Reason for Visit * Reason Onset Date Comments IV Gancyclovir 12/12/2021 Encounter Details Date Type Department Care Team (Late st Contact Info) Description 12/12/2021 Telephone [facility] Infectious Diseases [address] [place] [phone] Ny Griffin IV Gancyclovir Social History Tobacco Use Types Packs/Day Years Used Date Smoking Tobacco: Never Smokeless Tobacco: Current Chew Alcohol Use Standard Drinks/Week Comments Yes 0 (1 standard drink = 0.6 oz pur e alcohol) occassional Sex and Gender Information Value Date Recorded Sex Assigned at Not on file Legal Sex Male 6:28 AM CONTACT LENS FLASHING PUNCHER Gender Identity Not on file Sexual Orientation Straight 08/22/2021 9: 23 AM CDT documented as of this encounter Miscellaneous Notes * Telephone Encounter - Ny Griffin - 12/12/2021 11:32 AM CST Rui Samreen, We are trying to get weekly labs and PICC dressing changes set up for patient locally and not having any luck. We were trying to get him started on IV Ganciclovir due to his CMV levels. Any thoughts? See what I have checked below: Rui Beka, ?? Just wanted to touch base with you concerning the IV therapy were are trying to get set up for you. ?? I have ran into a few hiccups with it. ?? I have spoken with the infusion at [facility] and they are only willing to do the weekly labs, but no dressing changes for your PICC line, which will also need to be done weekly. ?? I also reached out to [facility] in [place] and they will only do the labs and dressing changes if kathieoctor is on staff with that hospital. None of our physicians are and Dr. Colunga is not either. ?? I have spoke with Brigitte at Dr. Colunga's office as well and they will not be able to do labs and dressing changes. ?? The last option would be to come to clinic weekly for these labs and dressing changes. Would be pretty quick to do, probably no longer then 30 minutes in the office. ?? I have one more call in to an infusion center here on [address] to see if they are possibly open on the weekends but I do not think that they are. ?? Would you be wiling to come to the office to have labs and dressing changes? ?? Let me know your thoughts. ?? SHAILESH Alejandra ACT LENS FLASHING PUNCHER documented in this encounter Plan of Treatment Scheduled Procedures Name Priority Associated Diagnoses Date/Ti me COLONOSCOPY Encounter for screening for colorectal cancer in high risk patient Family history of rectal cancer documented as of this encounter Visit Diagnoses Not on filedocumented in this encounter Care Teams Acting Teacher Relationship Specialty Start Date End Date Guero Colunga DO PCP - General Internal Medicine 03/22/19 04/18/23 Amber Montesinos RN Boiler Cleaner Transplant 11/17/19 Jil Duncan MD Consulting Physician Infectious Diseases 01/10/20 Anita Gillespie MD Medical Oncologist/Road Contractor Medical Oncology 10/07/20 Tabitha Hurley MD [address] [facility] [address] [facility] [address] [place] [address] Consulting Physician Rheumatology 10/22/21 documented as of this encounter
--- OUTSIDE RECORDS SUMMARY | 2024-10-28 06:15 | XMS_ITS | Encounter Summary ---
Author Organization [facility] Address [address] [place] [address] Phone Care Team Providers Care Geopolitics Teacher Name Role Phone Guero Colunga DO Primary Care Provider [phone] Amber Montesinos RN Unavailable [phone] Jil Duncan MD Unavailable [phone] Anita Gillespie MD Unavailable [phone] Tabitha Hurley MD Unavailable [phone] Encounter Details Date Type Department Care Team (Late st Contact Info) Description 11/12/2021 Telephone [facility] Infectious Diseases [address] [place] [phone] Sherin Porras, [facility] [address] Social History Tobacco Use Types Packs/Day Years Used Date Smoking Tobacco: Never Smokeless Tobacco: Current Chew Alcohol Use Standard Drinks/Week Comments Yes 0 (1 standard drink = 0.6 oz pur e alcohol) occassional Sex and Gender Information Value Date Recorded Sex Assigned at Not on file Legal Sex Male 6:28 AM TRAIN CALLER Gender Identity Not on file Sexual Orientation Straight 08/22/2021 9: 23 AM CDT documented as of this encounter Miscellaneous Notes * Telephone Encounter - Sherin Porras - 11/13/2021 2:46 PM CST Error N CALLER documented in this encounter Plan of Treatment Scheduled Procedures Name Priority Associated Diagnoses Date/Ti me COLONOSCOPY Encounter for screening for colorectal cancer in high risk patient Family history of rectal cancer documented as of this encounter Visit Diagnoses Not on filedocumented in this encounter Care Teams Geopolitics Teacher Relationship Specialty Start Date End Date Guero Colunga DO PCP - General Internal Medicine 03/22/19 04/18/23 Amber Montesinos, RN Histology Specialist Transplant 11/17/19 Jil Duncan MD Consulting Physician Infectious Diseases 01/10/20 Anita Gillespie MD Medical Oncologist/Geriatrics Physician Medical Oncology 10/07/20 Tabitha Hurley MD [address] [facility] 14 [place] [address] Consulting Physician Rheumatology 10/22/21 documented as of this encounter
--- OUTSIDE RECORDS SUMMARY | 2024-10-28 06:15 | XMS_ITS | Encounter Summary ---
Author Organization [facility] Address [address] [place] [address] Phone Care Team Providers Care Group Exercise Class Instructor Name Role Phone Guero Colunga DO Primary Care Provider [phone] Amber Montesinos RN Unavailable [phone] Jil Duncan MD Unavailable [phone] Anita Gillespie MD Unavailable [phone] Tabitha Hurley MD Unavailable [phone] Encounter Details Date Type Department Care Team (Late st Contact Info) Description 12/05/2021 Orders Only [facility] Infectious Diseases [address] [place] [address] [address] [place] [address] Lisandra Auguste, PLANT MAINTENANCE TECHNICIAN [address] [place] [address] Social History Tobacco Use Types Packs/Day Years Used Date Smoking Tobacco: Never Smokeless Tobacco: Current Chew Alcohol Use Standard Drinks/Week Comments Yes 0 (1 standard drink = 0.6 oz pur e alcohol) occassional Sex and Gender Information Value Date Recorded Sex Assigned at Not on file Legal Sex Male 6:28 AM MECHANIC'S ASSISTANT Gender Identity Not on file Sexual Orientation Straight 08/22/2021 9: 23 AM CDT documented as of this encounter Ordered Prescriptions Prescription Sig Dispense Quantity Refills Last Filled Start Date End Date ganciclovir (CYTOVENE) 500 mg injectionIndicatio ns:cytomegalovirus disease Infuse 5.7 mL (285 mg total) into a venous catheter every 12 (twelve) hours 342 mL 12/05/2021 documented in this encounter Plan of Treatment [...] a venous catheter every 12 (twelve) hours Reorder 12/01/2021 12/05/2021 documented as of this encounter Care Teams Group Exercise Class Instructor Relationship Specialty Start Date End Date Guero Colunga DO PCP - General Internal Medicine 03/22/19 04/18/23 Amber Montesinos, SHAILESH Business Office Manager Transplant 11/17/19 Jil Duncan MD Consulting Physician Infectious Diseases 01/10/20 Anita Gillespie MD Medical Oncologist/Studio Model Medical Oncology 10/07/20 Tabitha Hurley MD [address] [facility] 14 [place] [address] Consulting Physician Rheumatology 10/22/21 documented as of this encounter
--- OUTSIDE RECORDS SUMMARY | 2024-10-28 06:15 | XMS_ITS | Encounter Summary ---
Author Organization [facility] Address [address] [place] [address] Phone Care Team Providers Care Supervisor Dials Name Role Phone Guero Colunga DO Primary Care Provider [phone] Amber Montesinos RN Unavailable [phone] Jil Duncan MD Unavailable [phone] Anita Gillespie MD Unavailable [phone] Tabitha Hurley MD Unavailable [phone] Encounter Details Date Type Department Care Team (Late st Contact Info) Description 11/12/2021 8:00 AM MARKETING COPYWRITER Office Visit [facility] On[facility] [address] [facility] Advanced Medicine 7th [place] [address] [place] [address] Anita Gillespie MD [address] [facility] [address] [place], [place] [id number] 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) (Primary [...] on file Legal Sex Male 6:28 AM MARKETING COPYWRITER Gender Identity Not on file Sexual Orientation Straight 08/22/2021 9: 23 AM CDT documented as of this encounter Last Filed Vital Signs Vital Sign Reading Time Taken Comments Blood Pressure 101/64 11/12/2021 7:23 AM MARKETING COPYWRITER Pulse 72 11/12/2021 7:23 AM MARKETING COPYWRITER Temperature 37.3 ??C (99.1 ??F) 11/12/2021 7:23 AM CS T Respiratory Rate 18 11/12/2021 7:21 AM MARKETING COPYWRITER Oxygen Saturation 98% 11/12/2021 7:23 AM MARKETING COPYWRITER Inhaled Oxygen Concentration - - Weight 57.2 kg (126 lb 3.2 oz) 11/12/2021 7:21 A M MARKETING COPYWRITER Height - - Body Mass Index 19.19 10/01/2021 10:41 AM MARKETING COPYWRITER documented in this encounter Progress Notes * Anita Gillespie MD - 11/12/2021 12:00 AM CST PATIENT NAME: ADI NICHOLS : 1995 JUSTEN: 11/12/2021 DIAGNOSES: 1. 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 2. 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 3. Bilateral pulmonary emboli diagnosed on 10/19/2017. TREATMENT AND DISEASE COURSE: 1. R-CHOP x 1, 08/25/2017. 2. Dose adjusted EPOCH-R x 5, 09/15/2017 - 12/2017. Post-C2 PET: MA (5PS = 4), CR post C5 3. [...] INTERVAL HISTORY: Mr. Nichols returns to the [facility] for continued follow-up of his history of PTLD and recurrent CMV infection. I last saw him on October 01. He saw Dr. Duncan in ID on 10/06/2021 for further evaluation of his recurrent CMV. When we saw him on October 01 he had a CMV PCR of 14,600. His LFTs were elevated. He was started on valganciclovir on 10/06/2021, and hope was also to start him onletermovir, but they could not get this approved by the insurance. He is having weekly labs, following his CMV PCR and LFTs with ID. These are done locally at [email or web address] He had another sinus infection last week and took an antibiotic for 4 days. He has an appointment with ENT but not until early December. He continues on weekly HyQvia. He still has an occasional fever, but these are markedly improved. He is continuing to work full-time. He has noticed softening of his left axillary adenopathy. He has a feeling of fullness in his left ear. PHYSICAL EXAMINATION: General: Well-appearing young man, who is accompanied by his mother. Performance status: 0. Vital Signs: Weight 57.2 kg, which is up 1 kg. Blood pressure 100/64, pulse 72, temperature 37.3, O2 sat 98%. Lungs: Clear to auscultation. Nodes: Two 1 cm right jugulodigastric, a 1.5 x 1 cm mid right posterior cervical, a subcentimeter left preauricular, two 1 cm left jugulodigastric, about a half dozen or more nodes in the left posterior cervical chain measuring anywhere from 0.5 to 1 cm. He has a 2 cm very low left posterior cervical node, 2 or 3 subcentimeter right axillary lymph nodes, and one mobile 1 cm right axillary lymph node. There is a group of matted nodes in the high axillary region. I can just feel the bottom edge of the largest node, which measures about 4 cm. There are a couple of 1 to 2 cm nodes just inferior to this, a 2.5 x 1.5 left medial inguinal, and a 1 cm lateral left inguinal. Abdomen: No hepatosplenomegaly. Extremities: No edema. HEENT: His right ear drum is scarred and opaque. The left ear drum is also scarred and opaque between the 6 o'clock and 9 o'clock position. It is erythematous. LABORATORIES: WBC 6.5, ANC 2.6, ALC 2.9, hemoglobin 12.4, platelets 165. Chemistries remarkable for a stable alk phos of 309, compared to 10/18/2021. AST 73, ALT 55. LDH is normal at 205, GGT 152. IMPRESSION AND PLAN: 1. History of W-WLD-asoupdla posttransplant lymphoproliferative disorder, Nadine-De La Cruz virus positive, stage EMY, IPI 3 (stage, LDH, extranodal sites). This 26-year-old gentleman is now 4 years status post 1 cycle of R-CHOP and 5 cycles of dose-adjusted EPOCH-R. He has never had any evidence of recurrence. He has had multiple lymph node biopsies, most recently in October, which showed CMV lymphadenitis. His nodes are continuing to improve on the valganciclovir, and overall he is feeling better. We will see him back in 3 months, but he knows to call if he has problems in the interim. 2. Multiply recurrent sinus infections. The patient has a sinus infection once or twice a month. Hemost recently was treated with Levaquin, I believe. He has an appointment with ENT in December. 3. Common variable immunodeficiency. The patient remains on home cutaneous immunoglobulin (HyQvia) and will continue this indefinitely. 4. History of liver transplant. The patient remains on tacrolimus 0.5 mg b.i.d. His LFTs were recently fairly elevated but thought to be due to CMV. They are slowly improving after initiating the valganciclovir. 5. Cytomegalovirus viremia. The patient follows with Dr. Duncan in Infectious Disease. He is currently on Valcyte 900 mg b.i.d. He will receive a full course, and then I suspect will stay on some preventative course indefinitely since he has had so many recurrences. 6. Nonspecific inflammatory arthritis. The patient follows intermittently with Rheumatology. 7. Healthcare maintenance. The patient had the J&J vaccine on 02/08/2021, but I believe we talked about the booster at the time of his last visit and he was not interested. He is at high risk forCOVID. I will check in with him just to make sure that he is not willing to proceed with one of theMRNA vaccines. ELECTRONICALLY SIGNED - 11/17/2021 08:26 PM Anita Gillespie M.D. environmental engineering professor [facility] Chair in Medical Oncology NB/ps cc: LENO AGUSTIN MD [address] [facility] Floor [address], [place] [address] JIL DUNCAN M.D. [address] [place] [address] LINDA CHAPA MD [address] [facility] [address] [place] [address] / GUERO COLUNGA DO [address] [place] [address] / ETING COPYWRITER documented in this encounter Miscellaneous Notes * Addendum Note - Reta Flanagan - 11/12/2021 8:00 AM CSTAddended by: RETA FLANAGAN on: 02/11/2022 07:31 AM Modules accepted: Orders documented in this encounter Plan of Treatment Scheduled Procedures Name Priority Associated Diagnoses Date/Ti me COLONOSCOPY Encounter for screening for colorectal cancer in high risk patient Family history of rectal cancer documented as of this encounter Results * (ABNORMAL) CBC with auto differential (02/11/2022 8:02 AM CDT) WBC 7.9 3.8 - 9.8 K/cumm [facility] Comment:Testing performed by : [facility], [facility] [address] Hgb 13.3(L) 13.8 - 17.2 g/dL [facility] Comment:Testing performed by : [facility], [address] [place], [place] [id number] Hct 38.6(L) 40.7 - 50.3 % [facility] Comment:Testing performed by : [facility], [address] [place] [address] Plt 140 140 - 440 K/cumm [facility] Comment:Testing performed by : [facility], [address] [place] [address] MPV 8.8 6.8 - 10.4 fL [facility] Comment:Testing performed by : [place] [address] RBC 3.60(L) 4.50 - 5.70 M/cumm [facility] Comment:Testing performed by : [place] [address] MCV 107.4(H) 80.0 - 97.6 fL [facility] Comment:Testing performed by : [facility], [address] [place] [address] MCH 37.1(H) 26.7 - 33.7 pg [facility] Comment: Result consistent with previously reported values. Testing performed by: [place] [address] MCHC 34.6 32.7 - 35.5 g/dL [facility] Comment:Testing performed by : [place] [address] RDW CV 16.1(H) 11.8 - 14.6 % [facility] Comment:Testing performed by : [facility], [address] [place] [address] NRBC abs 0.00 0.00 - 0.01 K/cumm [facility] Comment:Testing performed by : [place] [address] Blood 02/11/2022 8:02 AM CDT 02/11/2022 8:02 AM CDT us Anita Gillespie MD LAB BLOOD ORDERABLES Final Result [facility] [place] [address] * (ABNORMAL) Comprehensive metabolic panel (02/11/2022 8:02 AM CDT) Sodium 140 135 - 145 mmol/L [facility] Comment:Testing performed by : [facility], [address] [place] [phone] Potassium, pl 4.2 3.3 - 4.9 mmol/L [facility] Comment:Testing performed by : [facility], [address] [place] [phone] Chloride 112(H) 97 - 110 mmol/L [facility] Comment:Testing performed by : [facility], [address] [place] [phone] CO2 22 22 - 32 mmol/L [facility] Comment:Testing performed by : [facility], [address] [place] [phone] Anion gap 6 2 - 15 mmol/L [facility] Comment:Testing performed by : [facility], [address] [place] [phone] BUN 8 8 - 25 mg/dL [facility] Comment:Testing performed by : [facility], [address] [place] [phone] Creatinine 0.62(L) 0.80 - 1.30 mg/dL [facility] Comment:Testing performed by : [facility], [address] [place] [phone] Glucose 96 70 - 199 mg/dL [facility] Comment: Interpretive Data Fasting glucose >/= [...] was last revised 2017. Testing performed by: [facility], [address] [place] [phone] Calcium 8.5 8.5 - 10.3 mg/dL [facility] Comment:Testing performed by : [facility], [address] [place] [phone] Bilirubin, total 1.2 0.1 - 1.2 mg/dL [facility] Comment:Testing performed by : [facility], [address] [place] [phone] Protein, pl 5.7(L) 6.5 - 8.5 g/dL [facility] Comment:Testing performed by : [facility], [address] [place] [phone] Albumin 3.5 3.5 - 5.0 g/dL [facility] Comment:Testing performed by : [facility], [address] [place] [phone] Alk phos 296(H) 40 - 130 Units/L [facility] Comment:Testing performed by : [facility], [address] [place] [phone] ALT 38 7 - 55 Units/L [facility] Comment:Testing performed by : [facility], [address] [place] [phone] AST 44 10 - 50 Units/L [facility] Comment:Testing performed by : [facility], [address] [place] [phone] Blood 02/11/2022 8:02 AM CDT 02/11/2022 8:02 AM CDT us Anita Gillespie MD LAB BLOOD ORDERABLES Final Result [facility] [place] [address] * Lactate dehydrogenase (LD) (02/11/2022 8:02 AM CDT) Lactate dehydrogenase (LDH) 233 100 - 250 Units/L [facility] Comment:Testing performed by : [facility], [address] 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 documented in this encounter Orders Appointment Requests Count Last Ordered Date Fi rst Ordered Date ONCBCN CLINIC APPOINTMENT REQUEST 2 022 11/12/2021 ON[facility]N LAB APPOINTMENT 1 02/11/2022 documented in this encounter Care Teams Supervisor Dials Relationship Specialty Start Date End Date Guero Colunga DO PCP - General Internal Medicine 03/22/19 04/18/23 Amber Montesinos, SHAILESH Medical Billing Clerk Transplant 11/17/19 Jil Duncan MD Consulting Physician Infectious Diseases 01/10/20 Anita Gillespie MD Medical Oncologist/Heel Painter Medical Oncology 10/07/20 Tabitha Hurley MD [address] [facility] [address] [place] [address] Consulting Physician Rheumatology 10/22/21 documented as of this encounter
--- OUTSIDE RECORDS SUMMARY | 2024-10-28 06:15 | XMS_ITS | Encounter Summary ---
Author Organization [facility] Address [address] [place] [address] Phone Care Team Providers Care Principal Engineer Name Role Phone Guero Colunga DO Primary Care Provider [phone] Amber Montesinos RN Unavailable [phone] Jil Duncan MD Unavailable [phone] Anita Gillespie MD Unavailable [phone] Tabitha Hurley MD Unavailable [phone] Encounter Details Date Type Department Care Team (Late st Contact Info) Description 12/01/2021 Telephone [facility] Infectious Diseases [address] [place] [address] [address] [place] [address] Lisandra Auguste, AIDEN [address] [place] [address] Social History Tobacco Use Types Packs/Day Years Used Date Smoking Tobacco: Never Smokeless Tobacco: Current Chew Alcohol Use Standard Drinks/Week Comments Yes 0 (1 standard drink = 0.6 oz pur e alcohol) occassional Sex and Gender Information Value Date Recorded Sex Assigned at Not on file Legal Sex Male 6:28 AM HIGH SCHOOL GUIDANCE COUNSELOR Gender Identity Not on file Sexual Orientation Straight 08/22/2021 9: 23 AM CDT documented as of this encounter Ordered Prescriptions Prescription Sig Dispense Quantity Refills Last Filled Start Date End Date ganciclovir (CYTOVENE) 500 mg injection Infuse 5.7 mL (285 mg total) into a venous catheter every 12 (twelve) hours 0 12/01/2021 documented in this encounter Miscellaneous Notes * Telephone Encounter - Ny Griffin - 12/03/2021 3:[address] is open today, most are closed until Wednesday. [facility] [place] [phone] SCHOOL GUIDANCE COUNSELOR * Telephone Encounter - Lisandra Auguste NP - 12/01/2021 9:58 AM HIGH SCHOOL GUIDANCE COUNSELOR Patient has had continued CMV viremia despite high dose valganciclovir. At this point we need to start him on IV ganciclovir. --Will need PICC/CVC placement --Unsure if he will qualify for chcf as he is not homebound therefore we will need to arrange for weekly CBC, CMP, and CMV levels along with dressing changes to be performed. There is a [facility] outpatient center in [place], [place] that would be convenient for him if this is possible. --He should stop valganciclovir when IV ganciclovir is started --He has also qualified for letermovir through [facility] patient assistance program. He should not start this medication at this time. We may use this for prophylaxis in the future Ny: I have placed orders in [facility] for medication. Please make sure he and his mother are aware ofthe above (especially to stop vanganciclovir when ganciclovir is initiated and to not start letermovir at this time if it is shipped to his house). I will update his other care teams. SCHOOL GUIDANCE COUNSELOR documented in this encounter Plan of Treatment Scheduled Procedures Name Priority Associated Diagnoses Date/Ti me COLONOSCOPY Encounter for screening for colorectal cancer in high risk patient Family history of rectal cancer documented as of this encounter Visit Diagnoses Not on filedocumented in this encounter Care Teams Principal Engineer Relationship Specialty Start Date End Date Guero Colunga DO PCP - General Internal Medicine 03/22/19 04/18/23 Amber Montesinos, RN Incident Response Manager Transplant 11/17/19 iJl Duncan MD Consulting Physician Infectious Diseases 01/10/20 Anita Gillespie MD Medical Oncologist/Research Laboratory Manager Medical Oncology 10/07/20 Tabitha Hurley MD [address] [facility] [address] [place] [address] Consulting Physician Rheumatology 10/22/21 documented as of this encounter
--- OUTSIDE RECORDS SUMMARY | 2024-10-28 06:15 | XMS_ITS | Encounter Summary ---
Author Organization [facility] Address [address] [place] [address] Phone Care Team Providers Care Truck Dock Material Mover Name Role Phone Guero Colunga DO Primary Care Provider [phone] Amber Montesinos RN Unavailable [phone] Jil Duncan MD Unavailable [phone] Anita Gillespie MD Unavailable [phone] Tabitha Hurley MD Unavailable [phone] Encounter Details Date Type Department Care Team (Late st Contact Info) Description 11/19/2021 Telephone [facility] Infectious Diseases [address] [place] [address] [address] [place] [address] Lisandra Auguste, AIDEN [address] [place] [address] Social History Tobacco Use Types Packs/Day Years Used Date Smoking Tobacco: Never Smokeless Tobacco: Current Chew Alcohol Use Standard Drinks/Week Comments Yes 0 (1 standard drink = 0.6 oz pur e alcohol) occassional Sex and Gender Information Value Date Recorded Sex Assigned at Not on file Legal Sex Male 6:28 AM EXPLOSIVES OPERATOR Gender Identity Not on file Sexual Orientation Straight 08/22/2021 9: 23 AM CDT documented as of this encounter Miscellaneous Notes * Telephone Encounter - Ny Griffin - 11/19/2021 11:02 AM CST When you have a chance will you scan them in to me, so I can have them when I call OSIVES OPERATOR * Telephone Encounter - Lisandra Auguste NP - 11/19/2021 9:05 AM EXPLOSIVES OPERATOR Yes, I have the denials from initial insurance request and the appeal. I can fax them if needed OSIVES OPERATOR * Telephone Encounter - Ny Griffin - 11/19/2021 8:55 AM CST I have not, when I spoke with latonya last week it was in reference to his insurance denying. I can call them today, do you have the paperwork that was submitted for assistance? OSIVES OPERATOR * Telephone Encounter - Lisandra Auguste NP - 11/19/2021 8:46 AM EXPLOSIVES OPERATOR Ny, any update on the letermovir from [employer]? CMV DNA from 11/15/21 was 4034. He remains on induction dosing of valganciclovir with continued viremia therefore we would like to also start letermoviras soon as possible. OSIVES OPERATOR documented in this encounter Plan of Treatment Scheduled Procedures Name Priority Associated Diagnoses Date/Ti me COLONOSCOPY Encounter for screening for colorectal cancer in high risk patient Family history of rectal cancer documented as of this encounter Visit Diagnoses Not on filedocumented in this encounter Care Teams Truck Dock Material Mover Relationship Specialty Start Date End Date Guero Colunga DO PCP - General Internal Medicine 03/22/19 04/18/23 Amber Montesinos, SHAILESH Oil Derrick Operator Transplant 11/17/19 Jil Duncan MD Consulting Physician Infectious Diseases 01/10/20 Anita Gillespie MD Medical Oncologist/Chest Painting And Sealing Supervisor Medical Oncology 10/07/20 Tabitha Hurley MD [address] [facility] [address] [place] [address] Consulting Physician Rheumatology 10/22/21 documented as of this encounter
--- OUTSIDE RECORDS SUMMARY | 2024-10-28 06:15 | XMS_ITS | Encounter Summary ---
Author Organization [facility] Address [address] [place] [address] Care Team Providers Care Graphic Engineer Name Role Phone Guero Colunga DO Primary Care Provider [phone] Amber Montesinos RN Unavailable [phone] Jil Duncan MD Unavailable [phone] Anita Gillespie MD Unavailable [phone] Tabitha Hurley MD Unavailable [phone] Encounter Details Date Type Department Care Team (Late st Contact Info) Description 12/08/2021 Documentation [facility] Transplant Liver [address] [place] [address] [address] [phone] [place], [place] [id number] Amber Montesinos RN Social History Tobacco Use Types Packs/Day Years Used Date Smoking Tobacco: Never Smokeless Tobacco: Current Chew Alcohol Use Standard Drinks/Week Comments Yes 0 (1 standard drink = 0.6 oz pur e alcohol) occassional Sex and Gender Information Value Date Recorded Sex Assigned at Not on file Legal Sex Male 6:28 AM TARIFF EXPERT Gender Identity Not on file Sexual Orientation Straight 08/22/2021 9: 23 AM CDT documented as of this encounter Ordered Prescriptions Prescription Sig Dispense Quantity Refills Last Filled Start Date End Date tacrolimus (PROGRAF) 0.5 mg immediate-release capsule Take 1 capsule (0.5 mg total) by mouth daily 30 capsule 11 12/08/2021 documented in this encounter Progress Notes * Amber Vargas RN - 12/08/2021 1:28 PM CST Labs and recent tacrolimus levels reviewed with Madelaine Martínez NP with transplant hepatology, and Dr. Gresham. Per mom report via [employer], tacrolimus trough should be a true trough. Patient alsomissed one dose prior to his blood draw. Per Dr. Gresham, we will try to reduce patient's tacrolimus to 0.5mg daily and assess labs in one week. Patient still being treated for CMV viremia by ID. Reviewed with mother via [employer]. Reviewed how to obtain trough level with once a day dosing. Patienthas not been set up yet for in home infusions at this time. Patient will continue normal lab schedule outpatient at [facility] at this time. FF EXPERT documented in this encounter Plan of Treatment Scheduled Procedures Name Priority Associated Diagnoses Date/Ti me COLONOSCOPY Encounter for screening for colorectal cancer in high risk patient Family history of rectal cancer documented as of this encounter Visit Diagnoses Not on filedocumented in this encounter Discontinued Medications Medication Sig Discontinue Reason Start Date End Da te tacrolimus (PROGRAF) 0.5 mg immediate-release capsule TAKE 1 CAPSULE BY MOUTH TWICE DAILY 06/25/2021 12/08/2021 documented as of this encounter Care Teams Graphic Engineer Relationship Specialty Start Date End Date Guero Colunga DO PCP - General Internal Medicine 03/22/19 04/18/23 Amber Montesinos, SHAILESH Evaluation Manager Transplant 11/17/19 Jil Duncan MD Consulting Physician Infectious Diseases 01/10/20 Anita Gillespie MD Medical Oncologist/Television Production Assistant Medical Oncology 10/07/20 Tabitha Hurley MD [address] [address] Consulting Physician Rheumatology 10/22/21 documented as of this encounter
--- OUTSIDE RECORDS SUMMARY | 2024-10-28 06:15 | XMS_ITS | Encounter Summary ---
Author Organization [facility] Home Care Servic es Address [address] [place] [address] Phone Care Team Providers Care Atlassian Administrator Name Role Phone Guero Colunga Primary Care Provider [phone] Amber Montesinos RN Unavailable [phone] Jil Duncan MD Unavailable [phone] Anita Gillespie MD Unavailable [phone] Tabitha Hurley MD Unavailable [phone] Encounter Details Date Type Department Care Team (Late st Contact Info) Description 12/19/2021 Home Care Visit [facility] Home Health - [address] [address] [address] [place] [address] Juanita Martin RN TRAVEL SCREENING CASE COMMUNICATION [...] on file Legal Sex Male 6:28 AM STATIONARY FIREMAN Gender Identity Not on file Sexual Orientation Straight 08/22/2021 9: 23 AM CDT documented as of this encounter Plan of Treatment Scheduled Procedures Name Priority Associated Diagnoses Date/Ti me COLONOSCOPY Encounter for screening for colorectal cancer in high risk patient Family history of rectal cancer documented as of this encounter Visit Diagnoses Not on filedocumented in this encounter Care Teams Atlassian Administrator Relationship Specialty Start Date End Date Guero Colunga DO PCP - General Internal Medicine 03/22/19 04/18/23 Amber Montesinos, SHAILESH Bread And Pastry Baker Transplant 11/17/19 Jil Duncan MD Consulting Physician Infectious Diseases 01/10/20 Anita Gillespie MD Medical Oncologist/Senior Web Services Developer Medical Oncology 10/07/20 Tabitha Hurley MD [address] [facility] [address] [place] [address] Consulting Physician Rheumatology 10/22/21 documented as of this encounter
--- OUTSIDE RECORDS SUMMARY | 2024-10-28 06:15 | XMS_ITS | Encounter Summary ---
Author Organization [facility] Address [address] [place] [address] Phone Care Team Providers Care Director Prospect Name Role Phone Guero Colunga DO Primary Care Provider [phone] Amber Montesinos RN Unavailable [phone] Jil Duncan MD Unavailable [phone] Anita Gillespie MD Unavailable [phone] Tabitha Hurley MD Unavailable [phone] Encounter Details Date Type Department Care Team (Late st Contact Info) Description 11/22/2021 Orders Only [facility] Gastroenterology [address] [facility] Advanced Medicine 8th [place] [address] [place] [address] Theodore Gresham MD [address] [place] [address] Social History Tobacco Use Types Packs/Day Years Used Date Smoking Tobacco: Never Smokeless Tobacco: Current Chew Alcohol Use Standard Drinks/Week Comments Yes 0 (1 standard drink = 0.6 oz pur e alcohol) occassional Sex and Gender Information Value Date Recorded Sex Assigned at Not on file Legal Sex Male 6:28 AM INSTRUCTIONAL MATERIAL DIRECTOR Gender Identity Not on file Sexual Orientation Straight 08/22/2021 9: 23 AM CDT documented as of this encounter Plan of Treatment Scheduled Procedures Name Priority Associated Diagnoses Date/Ti me COLONOSCOPY Encounter for screening for colorectal cancer in high risk patient Family history of rectal cancer documented as of this encounter Procedures Procedure Name Priority Date/Time Associated Diagnosis Comments COPY(IES) SENT TO: Routine 11/22/2021 7: 10 AM INSTRUCTIONAL MATERIAL DIRECTOR CMV DNA QN, PCR Routine 11/22/2021 7:10 AM INSTRUCTIONAL MATERIAL DIRECTOR TACROLIMUS LEVEL, TROUGH Routine 11/22/2021 7:10 AM INSTRUCTIONAL MATERIAL DIRECTOR CBC WITH AUTO DIFFERENTIAL Routine 11/22/2021 7:10 AM INSTRUCTIONAL MATERIAL DIRECTOR GAMMA GT Routine 11/22/2021 7:10 AM INSTRUCTIONAL MATERIAL DIRECTOR BILIRUBIN, DIRECT Routine 11/22/2021 7:1 0 AM INSTRUCTIONAL MATERIAL DIRECTOR COMPREHENSIVE METABOLIC PANEL Routine 11/22/2021 7:10 AM INSTRUCTIONAL MATERIAL DIRECTOR documented in this encounter Results * (ABNORMAL) CMV DNA QN, PCR (11/22/2021 7:10 AM INSTRUCTIONAL MATERIAL DIRECTOR) SOURCE WHOLE BLOOD [facility], CMV DNA qn 2,166(H) IU/mL [facility], CMV DNA log IU/mL 3.34(H) Log IU/mL [facility], Comment: REFERENCE RANGE: NOT DETECTED This test was developed and its analytical performance characteristics have been determined by [facility]. It has not been cleared or approved by the U.S. Food and Drug Administration. This assay has been validated pursuant to the CLIA regulations and is used for clinical purposes. For additional information, please refer to http://education.[employer]/faq/CMVandEBVPCR (This link is being provided for informational/ educational purposes only.) 11/22/2021 7:10 AM INSTRUCTIONAL MATERIAL DIRECTOR 11/22/2021 7:11 AM INSTRUCTIONAL MATERIAL DIRECTOR Narrative [facility] - 11/25/2021 1:10 PM INSTRUCTIONAL MATERIAL DIRECTOR VARIFIED THIS IS THE CORRECT TEST TODAY FASTING:YES FASTING: YES Theodore Gresham MD LAB MICROBIOLOGY - GENERAL ORDERABLES Final Result [facility], [address] [place] [address] * (ABNORMAL) CBC with auto differential (11/22/2021 7:10 AM INSTRUCTIONAL MATERIAL DIRECTOR) WBC 8.8 3.8 - 10.8 Thousand/u L [facility] RBC, POC 3.78(L) 4.20 - 5.80 Million/uL [facility] Hgb 12.9(L) 13.2 - 17.1 g/dL [facility] Hct 36.2(L) 38.5 - 50.0 % [facility] MCV 95.8 80.0 - 100.0 fL [facility] MCH 34.1(H) 27.0 - 33.0 pg [facility] MCHC 35.6 32.0 - 36.0 g/dL [facility] Rdw 15.7(H) 11.0 - 15.0 % [facility] Platelets 158 140 - 400 Thousand/u L [facility] MPV 11.8 7.5 - 12.5 fL [facility] Neutrophils, abs 2,570 1,500 - 7,800 cells/uL [facility] Lymphocytes, abs 4,673(H) 850 - 3,900 cells/uL [facility] Monocyte abs 1,426(H) 200 - 950 cells/uL [facility] Eosinophils, abs 62 15 - 500 cells/uL [facility] Basophils, abs 70 0 - 200 cells/uL [facility] Neutrophils 29.2 % [facility] Lymphocyte pct 53.1 % [facility] Monocytes 16.2 % [facility] Eosinophils 0.7 % [facility] Basophils 0.8 % [facility] 11/22/2021 7:10 AM INSTRUCTIONAL MATERIAL DIRECTOR 11/22/2021 7:11 AM INSTRUCTIONAL MATERIAL DIRECTOR Narrative [facility] - 11/25/2021 1:10 PM INSTRUCTIONAL MATERIAL DIRECTOR VARIFIED THIS IS THE CORRECT TEST TODAY FASTING:YES FASTING: YES Theodore Gresham MD LAB BLOOD ORDERABLES Final Result Performing Organization Address [facility] de Phone Number [facility] [address] [place] [address] * Tacrolimus level trough (11/22/2021 7:10 AM INSTRUCTIONAL MATERIAL DIRECTOR) Pathologist [facility] Tacrolimus, highly Sensitive, LC/MS/MS 6.7 mcg/L [facility] Comment: No definitive therapeutic or toxic ranges have been established. Optimal blood drug levels are influenced by type of transplant, patient response, time post- transplant, co-administration of other drugs, and drug formulation. The following trough range is a suggested guideline: 5.0-20.0 mcg/L. This test was developed and its analytical performance characteristics have been determined by [facility]. It has not been cleared or approved by the FDA. This assay has been validated pursuant to the CLIA regulations and is used for clinical purposes. 11/22/2021 7:10 AM INSTRUCTIONAL MATERIAL DIRECTOR 11/22/2021 7:11 AM INSTRUCTIONAL MATERIAL DIRECTOR Narrative [facility] - 11/25/2021 1:10 PM INSTRUCTIONAL MATERIAL DIRECTOR VARIFIED THIS IS THE CORRECT TEST TODAY FASTING:YES FASTING: YES Theodore Gresham MD LAB BLOOD ORDERABLES Final Result Performing Organization Address [facility] de Phone Number [facility] [address] [place] [address] * (ABNORMAL) Comprehensive metabolic panel (11/22/2021 7:10 AM INSTRUCTIONAL MATERIAL DIRECTOR) [facility] Glucose 100(H) 65 - 99 mg/dL [facility] Comment: ? Fasting reference interval For someone without known diabetes, a glucose value between 100 and 125 mg/dL is consistent with prediabetes and should be confirmed with a follow-up test. BUN 9 7 - 25 mg/dL [facility] Creatinine 0.62 0.60 - 1.35 mg/dL [facility] eGFR NON-AFR. HONDURAN 135 > OR = 60 mL/min/1. 73m2 [facility] EGFR 156 > OR = 60 mL/min/1. 73m2 [facility] BUN/creat ratio NOT APPLICABLE 6 - 22 (calc) [facility] Sodium 141 135 - 146 mmol/L [facility] Potassium, pl 3.6 3.5 - 5.3 mmol/L [facility] Chloride 109 98 - 110 mmol/L [facility] CO2 26 20 - 32 mmol/L [facility] Calcium 8.5(L) 8.6 - 10.3 mg/dL [facility] Protein, sr 5.5(L) 6.1 - 8.1 g/dL [facility] Albumin 3.8 3.6 - 5.1 g/dL [facility] GLOBULIN 1.7(L) 1.9 - 3.7 g/dL (calc) [facility] Alb/glob ratio 2.2 1.0 - 2.5 (calc) [facility] Bilirubin, total 1.6(H) 0.2 - 1.2 mg/dL [facility] Alk phos 226(H) 36 - 130 U/L [facility] AST 54(H) 10 - 40 U/L [facility] ALT (SGPT) 40 9 - 46 U/L [facility] 11/22/2021 7:10 AM INSTRUCTIONAL MATERIAL DIRECTOR 11/22/2021 7:11 AM INSTRUCTIONAL MATERIAL DIRECTOR Narrative [facility] - 11/25/2021 1:10 PM INSTRUCTIONAL MATERIAL DIRECTOR VARIFIED THIS IS THE CORRECT TEST TODAY FASTING:YES FASTING: YES us Theodore Gresham MD LAB BLOOD ORDERABLES Final Result [facility] [address] [place] [address] * (ABNORMAL) Gamma GT (11/22/2021 7:10 AM INSTRUCTIONAL MATERIAL DIRECTOR) GGT 98(H) 3 - 70 U/L [facility] 11/22/2021 7:10 AM INSTRUCTIONAL MATERIAL DIRECTOR 11/22/2021 7:11 AM INSTRUCTIONAL MATERIAL DIRECTOR Narrative [facility] - 11/25/2021 1:10 PM INSTRUCTIONAL MATERIAL DIRECTOR VARIFIED THIS IS THE CORRECT TEST TODAY FASTING:YES FASTING: YES Theodore Gresham MD LAB BLOOD ORDERABLES Final Result Performing Organization Address City/[facility]/ZIP Co de Phone Number [facility] [address] [place] [address] * (ABNORMAL) Bilirubin, direct (11/22/2021 7:10 AM INSTRUCTIONAL MATERIAL DIRECTOR) Bilirubin, direct 0.7(H) < OR = 0.2 mg/dL [facility] 11/22/2021 7:10 AM INSTRUCTIONAL MATERIAL DIRECTOR 11/22/2021 7:11 AM INSTRUCTIONAL MATERIAL DIRECTOR Narrative [facility] - 11/25/2021 1:10 PM INSTRUCTIONAL MATERIAL DIRECTOR VARIFIED THIS IS THE CORRECT TEST TODAY FASTING:YES FASTING: YES Theodore Gresham MD LAB BLOOD ORDERABLES Final Result Performing Organization Address City/[facility] Co de Phone Number [facility] [address] [place] [address] * COPY(IES) SENT TO: (11/22/2021 7:10 AM INSTRUCTIONAL MATERIAL DIRECTOR) COPY(IES) SENT TO: [facility] Comment: ?[facility] LIVER - COPY TO ACCT ?[address] ?[place] [address] 11/22/2021 7:10 AM INSTRUCTIONAL MATERIAL DIRECTOR 11/22/2021 7:11 AM INSTRUCTIONAL MATERIAL DIRECTOR Narrative [facility] - 11/25/2021 1:10 PM INSTRUCTIONAL MATERIAL DIRECTOR VARIFIED THIS IS THE CORRECT TEST TODAY FASTING:YES FASTING: YES us Theodore Gresham MD LAB BLOOD ORDERABLES Final Result [facility] documented in this encounter Visit Diagnoses Not on filedocumented in this encounter Care Teams Director Prospect Relationship Specialty Start Date End Date Guero Colunga DO PCP - General Internal Medicine 03/22/19 04/18/23 Amber Montesinos, SHAILESH Entry Level Finance Transplant 11/17/19 Jil Duncan MD Consulting Physician Infectious Diseases 01/10/20 Anita Gillespie MD Medical Oncologist/Electric Drill Operator Medical Oncology 10/07/20 Tabitha Hurley MD [address] [facility] [address] [place] [address] Consulting Physician Rheumatology 10/22/21 documented as of this encounter
--- OUTSIDE RECORDS SUMMARY | 2024-10-28 06:15 | XMS_ITS | Encounter Summary ---
Author Organization [facility] Address [address] [place] [address] Phone Care Team Providers Care Night Shift Name Role Phone Guero Colunga DO Primary Care Provider [phone] Amber Montesinos RN Unavailable [phone] Jil Duncan MD Unavailable [phone] Anita Gillespie MD Unavailable [phone] Tabitha Hurley MD Unavailable [phone] Encounter Details Date Type Department Care Team (Late st Contact Info) Description 11/18/2021 Telephone [facility] Pulmonary [address] [facility] Advanced Medicine 8th [place] [address] [place] [address] Moni Sue Social History Tobacco Use Types Packs/Day Years Used Date Smoking Tobacco: Never Smokeless Tobacco: Current Chew Alcohol Use Standard Drinks/Week Comments Yes 0 (1 standard drink = 0.6 oz pur e alcohol) occassional Sex and Gender Information Value Date Recorded Sex Assigned at Not on file Legal Sex Male 6:28 AM CONTACT CENTER AGENT Gender Identity Not on file Sexual Orientation Straight 08/22/2021 9: 23 AM CDT documented as of this encounter Miscellaneous Notes * Telephone Encounter - Moni Sue - 11/18/2021 8:49 AM CST Called patient to let him know his PFTS from 11/12 look better per MD Bailon. I spoke to his mother and she verbalized understanding and had no other needs at this time. ACT CENTER AGENT documented in this encounter Plan of Treatment Scheduled Procedures Name Priority Associated Diagnoses Date/Ti me COLONOSCOPY Encounter for screening for colorectal cancer in high risk patient Family history of rectal cancer documented as of this encounter Visit Diagnoses Not on filedocumented in this encounter Care Teams Night Shift Relationship Specialty Start Date End Date Guero Colunga DO PCP - General Internal Medicine 03/22/19 04/18/23 Amber Montesinos, SHAILESH Armament Aircraft Mechanic Transplant 11/17/19 Jil Duncan MD Consulting Physician Infectious Diseases 01/10/20 Anita Gillespie MD Medical Oncologist/Resident Care Coordinator Medical Oncology 10/07/20 Tabitha Hurley MD [address] [facility] [address] [place] [address] Consulting Physician Rheumatology 10/22/21 documented as of this encounter
--- OUTSIDE RECORDS SUMMARY | 2024-10-28 06:15 | XMS_ITS | Encounter Summary ---
Author Organization [facility] Home Care Servic es Address [address] [place] [address] Phone Care Team Providers Care Immersion Metal Cleaner Name Role Phone Guero Colunga Primary Care Provider [phone] Amber Montesinos RN Unavailable [phone] Jil Duncan MD Unavailable [phone] Anita Gillespie MD Unavailable [phone] Tabitha Hurley MD Unavailable [phone] Encounter Details Date Type Department Care Team (Late st Contact Info) Description 12/19/2021 Orders Only [facility] Health [facility] [address] [place] [address] Melony Jerome, [facility] Social History Tobacco Use Types [...] file 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 COUNTRY Gender Identity Not on file Sexual Orientation Straight 08/22/2021 9: 23 AM CDT documented as of this encounter Progress Notes * Melony Jerome [facility] - 12/19/2021 11:06 AM CST Per faxed orders Dr Ashley Duncan/ Mayda Jerome [facility] Maintain IV access PICC Line with 10ml normal saline and 5ml heparin 50units/5ml for patency per established protocol. Ganciclovir 285mg in Normal Saline 100mL, infuse intravenously over 60 minutes every 12 hours by Elastomeric Device at 100mL/hr. Lot: 01/04/22 ~ Labs Weekly CBC, CMP, CMV PCR Please fax a copy of all lab results to [facility] at [phone] 1 SNV every week for 4 weeks for patient assessment, teaching, IV catheter care, lab work. 6 PRN visits for additional teaching, line care, labs or other symptom management. GER COUNTRY documented in this encounter Plan of Treatment Scheduled Procedures Name Priority Associated Diagnoses Date/Ti me COLONOSCOPY Encounter for screening for colorectal cancer in high risk patient Family history of rectal cancer documented as of this encounter Visit Diagnoses Not on filedocumented in this encounter Care Teams Immersion Metal Cleaner Relationship Specialty Start Date End Date Gene ColungaeDO PCP - General Internal Medicine 03/22/19 04/18/23 Amber Montesinos RN Cell Reliner Transplant 11/17/19 Jil Duncan MD Consulting Physician Infectious Diseases 01/10/20 Anita Gillespie MD Medical Oncologist/Attraction Worker Medical Oncology 10/07/20 Tabitha Hurley MD [address] [place] [address] Consulting Physician Rheumatology 10/22/21 documented as of this encounter
--- OUTSIDE RECORDS SUMMARY | 2024-10-28 06:16 | XMS_ITS | Encounter Summary ---
Author Organization [facility] Healthcare Address [address] [place] [address] Care Team Providers Care Service Writer Advisor Name Role Phone Guero Colunga DO Primary Care Provider [phone] Amber Montesinos RN Unavailable [phone] Jil Duncan MD Unavailable [phone] Anita Gillespie MD Unavailable [phone] Encounter Details Date Type Department Care Team (Late st Contact Info) Description 10/02/2021 Orders Only [facility] Transplant Liver [address] [address] [phone] [place], [place] [id number] Amber Montesinos RN Social History Tobacco Use Types Packs/Day Years Used Date Smoking Tobacco: Never Smokeless Tobacco: Current Chew Alcohol Use Standard Drinks/Week Comments Yes 0 (1 standard drink = 0.6 oz pur e alcohol) occassional Sex and Gender Information Value Date Recorded Sex Assigned at Not on file Legal Sex Male 6:28 AM GUSSET EDGER Gender Identity Not on file Sexual Orientation Straight 08/22/2021 9: 23 AM CDT documented as of this encounter Ordered Prescriptions Prescription Sig Dispense Quantity Refills Last Filled Start Date End Date ursodioL (ACTIGALL) 300 mg capsule Take 2 capsules (600 mg total) by mouth daily with dinner 180 capsule 3 10/02/2021 3 documented in this encounter Plan of Treatment [...] total) by mouth daily with dinner Reorder 07/22/2021 10/02/2021 documented as of this encounter Care Teams Service Writer Advisor Relationship Specialty Start Date End Date Guero Colunga DO PCP - General Internal Medicine 03/22/19 04/18/23 Amber Montesinos RN Magazine Publisher Transplant 11/17/19 Jil Duncan MD Consulting Physician Infectious Diseases 01/10/20 Anita Gillespie MD Medical Oncologist/Dock Or Pier Laborer Medical Oncology 10/07/20 documented as of this encounter
--- OUTSIDE RECORDS SUMMARY | 2024-10-28 06:16 | XMS_ITS | Encounter Summary ---
Author Organization [facility] Address [address] [place] [address] Phone Care Team Providers Care Mineral Wool Insulation Supervisor Name Role Phone Guero Colunga DO Primary Care Provider [phone] Amber Montesinos RN Unavailable [phone] Jil Duncan MD Unavailable [phone] Anita Gillespie MD Unavailable [phone] Encounter Details Date Type Department Care Team (Late st Contact Info) Description 09/05/2021 Telephone [facility] Oncology [address] [facility] 7th [place] [address] [place] [address] Samreen Greene RN Social History Tobacco Use Types Packs/Day Years Used Date Smoking Tobacco: Never Smokeless Tobacco: Current Chew Alcohol Use Standard Drinks/Week Comments Yes 0 (1 standard drink = 0.6 oz pur e alcohol) occassional Sex and Gender Information Value Date Recorded Sex Assigned at Not on file Legal Sex Male 6:28 AM HOUSE CLEANER SUPERVISOR Gender Identity Not on file Sexual Orientation Straight 08/22/2021 9: 23 AM CDT documented as of this encounter Miscellaneous Notes * Telephone Encounter - Samreen Greene RN - 09/05/2021 10:07 AM CDT Called Brooklynn to see how Beka has been feeling on the antibiotics. She shared that he is back to feeling good. He has no fevers or cough. He will complete the full course and knows to call if any symptoms recur once he is off of this. He received IVIG in August, but it will be on hold for Rheumatology. They would like to evaluate further on October 01 with him being off this. Theyknow to call with any other concerns in the interim. documented in this encounter Plan of Treatment Scheduled Procedures Name Priority Associated Diagnoses Date/Ti me COLONOSCOPY Encounter for screening for colorectal cancer in high risk patient Family history of rectal cancer documented as of this encounter Visit Diagnoses Not on filedocumented in this encounter Care Teams Mineral Wool Insulation Supervisor Relationship Specialty Start Date End Date Guero Colunga DO PCP - General Internal Medicine 03/22/19 04/18/23 Amber Montesinos RN Auctioneer Automobile Transplant 11/17/19 Jil Duncan MD Consulting Physician Infectious Diseases 01/10/20 Anita Gillespie MD Medical Oncologist/Manager Of Health Medical Oncology 10/07/20 documented as of this encounter
--- OUTSIDE RECORDS SUMMARY | 2024-10-28 06:16 | XMS_ITS | Encounter Summary ---
Author Organization [facility] Healthcare Address [address] [place] [address] Care Team Providers Care Well Drill Operator Helper Cable Tool Name Role Phone Guero Colunga Primary Care Provider [phone] Amber Montesinos RN Unavailable [phone] Jil Duncan MD Unavailable [phone] Anita Gillespie MD Unavailable [phone] Encounter Details Date Type Department Care Team (Late st Contact Info) Description 10/07/2021 Orders Only [facility] Transplant Liver [address] [address] [address] [phone] [place], [place] [id number] Amber Montesinos RN History of liver transplant (CMS/HCC) (HCC) (Primary Dx); Elevated liver enzymes; Cytomegalovirus (CMV) viremia (CMS/HCC) (HCC) Social History Tobacco Use Types Packs/Day Years Used Date Smoking Tobacco: Never Smokeless Tobacco: Current Chew Alcohol Use Standard Drinks/Week Comments Yes 0 (1 standard drink = 0.6 oz pur e alcohol) occassional Sex and Gender Information Value Date Recorded Sex Assigned at Not on file Legal Sex Male 6:28 AM STAMPER BLOCKER Gender Identity Not on file Sexual Orientation Straight 08/22/2021 9: 23 AM CDT documented as of this encounter Plan of Treatment Scheduled Orders Name Type Priority Associated Diagnoses Orde r Schedule CBC with auto differential Lab Routine History of liver transplant (CMS/HCC) (HCC) Elevated liver enzymes weekly and prn for 30 Occurrences starting 10/07/2021 until 10/07/2022 Comprehensive metabolic panel Lab Routine History of liver transplant (CMS/HCC) (HCC) Elevated liver enzymes weekly and prn for 30 Occurrences starting 10/07/2021 until 10/07/2022 Gamma GT Lab Routine History of liver transplant (CMS/HCC) (HCC) Elevated liver enzymes weekly and prn for 30 Occurrences starting 10/07/2021 until 10/07/2022 CMV DNA QN, PCR Blood Microbiology Routine History of liver transplant (CMS/HCC) (HCC) Elevated liver enzymes Cytomegalovirus (CMV) viremia (CMS/HCC) (HCC) weekly and prn for 30 Occurrences starting 10/07/2021 until 10/07/2022 Tacrolimus level trough Lab Routine History of liver transplant (CMS/HCC) (HCC) Elevated liver enzymes weekly and prn for 30 Occurrences starting 10/07/2021 until 10/07/2022 Scheduled Procedures Name Priority Associated Diagnoses Date/Ti me COLONOSCOPY Encounter for screening for colorectal cancer in high risk patient Family history of rectal cancer documented as of this encounter Visit Diagnoses Diagnosis History of liver transplant (CMS/HCC) (HCC)- Primary Liver replaced by transplant Elevated liver enzymes Other nonspecific abnormal serum enzyme levels 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
--- OUTSIDE RECORDS SUMMARY | 2024-10-28 06:16 | XMS_ITS | Encounter Summary ---
Author Organization [facility] Address [address] [place] [address] Phone Care Team Providers Care Antique Refinisher Name Role Phone Guero Colunga DO Primary Care Provider [phone] Amber Montesinos RN Unavailable [phone] Jil Duncan MD Unavailable Anita Gillespie MD Unavailable [phone] Encounter Details Date Type Department Care Team (Late st Contact Info) Description 10/03/2021 Orders Only [facility] Infectious Diseases [address] [place] [address] [address] [place] [address] Lisandra Auguste, TICKET TAKER FERRYBOAT [address] [place] [address] Social History Tobacco Use Types Packs/Day Years Used Date Smoking Tobacco: Never Smokeless Tobacco: Current Chew Alcohol Use Standard Drinks/Week Comments Yes 0 (1 standard drink = 0.6 oz pur e alcohol) occassional Sex and Gender Information Value Date Recorded Sex Assigned at Not on file Legal Sex Male 6:28 AM LINE PRODUCER Gender Identity Not on file Sexual Orientation Straight 08/22/2021 9: 23 AM CDT documented as of this encounter Plan of Treatment Scheduled Procedures Name Priority Associated Diagnoses Date/Ti me COLONOSCOPY Encounter for screening for colorectal cancer in high risk patient Family history of rectal cancer documented as of this encounter Visit Diagnoses Not on filedocumented in this encounter Care Teams Antique Refinisher Relationship Specialty Start Date End Date Gene ColungaeDO PCP - General Internal Medicine 03/22/19 04/18/23 Amber Montesinos RN Lotus Notes Administrator Transplant 11/17/19 Jil Duncan MD Consulting Physician Infectious Diseases 01/10/20 Anita Gillespie MD Medical Oncologist/Agile Business Analyst Medical Oncology 10/07/20 documented as of this encounter
--- OUTSIDE RECORDS SUMMARY | 2024-10-28 06:16 | XMS_ITS | Encounter Summary ---
Author Organization [facility] Address [address] [place] [address] Phone Care Team Providers Care Nailing Machine Operator Name Role Phone Guero Colunga DO Primary Care Provider [phone] Amber Montesinos RN Unavailable [phone] Jil Duncan MD Unavailable [phone] Anita Gillespie MD Unavailable [phone] Reason for Visit * Reason Onset Date Comments update 10/13/2021 Encounter Details Date Type Department Care Team (Late st Contact Info) Description 10/13/2021 Telephone [facility] Infectious Diseases [address] [place] [address] Ny Griffin update Social History Tobacco Use Types Packs/Day Years Used Date Smoking Tobacco: Never Smokeless Tobacco: Current Chew Alcohol Use Standard Drinks/Week Comments Yes 0 (1 standard drink = 0.6 oz pur e alcohol) occassional Sex and Gender Information Value Date Recorded Sex Assigned at Not on file Legal Sex Male 6:28 AM BLASTING ENTRYMAN Gender Identity Not on file Sexual Orientation Straight 08/22/2021 9: 23 AM CDT documented as of this encounter Miscellaneous Notes * Telephone Encounter - Ny Griffin - 10/13/2021 11:07 AM CST error TING ENTRYMAN documented in this encounter Plan of Treatment Scheduled Procedures Name Priority Associated Diagnoses Date/Ti me COLONOSCOPY Encounter for screening for colorectal cancer in high risk patient Family history of rectal cancer documented as of this encounter Visit Diagnoses Not on filedocumented in this encounter Care Teams Nailing Machine Operator Relationship Specialty Start Date End Date Guero Colunga DO PCP - General Internal Medicine 03/22/19 04/18/23 Amber Montesinos, SHAILESH Rural Service Engineer Transplant 11/17/19 Jil Duncan MD Consulting Physician Infectious Diseases 01/10/20 Anita Gillespie MD Medical Oncologist/Shoer Medical Oncology 10/07/20 documented as of this encounter
--- OUTSIDE RECORDS SUMMARY | 2024-10-28 06:16 | XMS_ITS | Encounter Summary ---
Author Organization [facility] Healthcare Address [address] [place] [address] Care Team Providers Care Public Affairs Officer Name Role Phone Guero Colunga Primary Care Provider [phone] Amber Montesinos RN Unavailable [phone] Jil Duncan MD Unavailable [phone] Anita Gillespie MD Unavailable [phone] Encounter Details Date Type Department Care Team (Late st Contact Info) Description 10/09/2021 Telephone [facility] Transplant Liver [address] [facility] [address] [phone] [place] [address] Eli Brink Social History Tobacco Use Types Packs/Day Years Used Date Smoking Tobacco: Never Smokeless Tobacco: Current Chew Alcohol Use Standard Drinks/Week Comments Yes 0 (1 standard drink = 0.6 oz pur e alcohol) occassional Sex and Gender Information Value Date Recorded Sex Assigned at Not on file Legal Sex Male 6:28 AM SECURITY THREAT ANALYST Gender Identity Not on file Sexual Orientation Straight 08/22/2021 9: 23 AM CDT documented as of this encounter Miscellaneous Notes * Telephone Encounter - Eli Brink - 10/09/2021 3:34 PM CST Updated standing order entered in [employer]. RITY THREAT ANALYST documented in this encounter Plan of Treatment Scheduled Procedures Name Priority Associated Diagnoses Date/Ti me COLONOSCOPY Encounter for screening for colorectal cancer in high risk patient Family history of rectal cancer documented as of this encounter Visit Diagnoses Not on filedocumented in this encounter Care Teams Public Affairs Officer Relationship Specialty Start Date End Date Guero Colunga DO PCP - General Internal Medicine 03/22/19 04/18/23 Amber Montesinos, SHAILESH Electric Golf Cart Repairers Transplant 11/17/19 Jil Duncan MD Consulting Physician Infectious Diseases 01/10/20 Anita Gillespie MD Medical Oncologist/Wire Basket Maker Medical Oncology 10/07/20 documented as of this encounter
--- OUTSIDE RECORDS SUMMARY | 2024-10-28 06:16 | XMS_ITS | Encounter Summary ---
Author Organization [facility] Healthcare Address [address] [place] [address] Care Team Providers Care Extermination Inspector Name Role Phone Guero Colunga Primary Care Provider [phone] Amber Montesinos RN Unavailable [phone] Jil Duncan MD Unavailable [phone] Anita Gillespie MD Unavailable [phone] Encounter Details Date Type Department Care Team (Late st Contact Info) Description 10/02/2021 Telephone [facility] [address] [place] [address] Nirmala Medellin RN Social History Tobacco Use Types Packs/Day Years Used Date Smoking Tobacco: Never Smokeless Tobacco: Current Chew Alcohol Use Standard Drinks/Week Comments Yes 0 (1 standard drink = 0.6 oz pur e alcohol) occassional Sex and Gender Information Value Date Recorded Sex Assigned at Not on file 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 Once has reviewed patients chart and previous testing with approval to schedule, I will then notify referring office of apt date/time/ location/patient instructions. GER MEMBERSHIP documented in this encounter Plan of Treatment Scheduled Procedures Name Priority Associated Diagnoses Date/Ti me COLONOSCOPY Encounter for screening for colorectal cancer in high risk patient Family history of rectal cancer documented as of this encounter Visit Diagnoses Not on filedocumented in this encounter Care Teams Extermination Inspector Relationship Specialty Start Date End Date Guero Colunga DO PCP - General Internal Medicine 03/22/19 04/18/23 Amber Montesinos RN Radio Survey Worker Transplant 11/17/19 Jil Duncan MD Consulting Physician Infectious Diseases 01/10/20 Anita Gillespie MD Medical Oncologist/Metal Annealer Medical Oncology 10/07/20 documented as of this encounter
--- OUTSIDE RECORDS SUMMARY | 2024-10-28 06:16 | XMS_ITS | Encounter Summary ---
Author Organization [facility] Address [address] [place] [address] Phone Care Team Providers Care Lending Activities Supervisor Name Role Phone Guero Colunga DO Primary Care Provider [phone] Amber Montesinos RN Unavailable [phone] Jil Duncan MD Unavailable [phone] Anita Gillespie MD Unavailable [phone] Tabitha Hurley MD Unavailable [phone] Encounter Details Date Type Department Care Team (Late st Contact Info) Description 10/22/2021 Telephone [facility] Infectious Diseases [address] [place] [address] [address] [place] [address] Lisandra Auguste, AIDEN [address] [place] [address] Social History Tobacco Use Types Packs/Day Years Used Date Smoking Tobacco: Never Smokeless Tobacco: Current Chew Alcohol Use Standard Drinks/Week Comments Yes 0 (1 standard drink = 0.6 oz pur e alcohol) occassional Sex and Gender Information Value Date Recorded Sex Assigned at Not on file Legal Sex Male 6:28 AM FRONT END MANAGER Gender Identity Not on file Sexual Orientation Straight 08/22/2021 9: 23 AM CDT documented as of this encounter Miscellaneous Notes * Telephone Encounter - Jil Duncan MD - 10/23/2021 12:55 PM FRONT END MANAGER Thanks Lisandra. I am glad that there are no resistance mutations. Let us follow up the PCR on 11/08 and decide on further plans. T END MANAGER * Telephone Encounter - Lisandra Auguste NP - 10/22/2021 10:31 AM FRONT END MANAGER CMV levels drawn on 10/18 reviewed and have significantly decreased, [place] 4[place] [address] on 10/01. Resistance panel also showed no mutations. He is on Valcyte 900 mg PO BID and has been approved for free drug through [employer]. Spoke with is mother, Brooklynn, yesterday and plan is to stay on treatment dose for now. He will have labs drawn next on 11/08. If CMV viral load is undetectable will consider decreasing dose. T END MANAGER documented in this encounter Plan of Treatment Scheduled Procedures Name Priority Associated Diagnoses Date/Ti me COLONOSCOPY Encounter for screening for colorectal cancer in high risk patient Family history of rectal cancer documented as of this encounter Visit Diagnoses Not on filedocumented in this encounter Care Teams Lending Activities Supervisor Relationship Specialty Start Date End Date Guero Colunga DO PCP - General Internal Medicine 03/22/19 04/18/23 Amber Montesinos, SHAILESH Knowledge Engineer Transplant 11/17/19 Jil Duncan MD Consulting Physician Infectious Diseases 01/10/20 Anita Gillespie MD Medical Oncologist/Extrusion Supervisor Medical Oncology 10/07/20 Tabitha Hurley MD [address] [facility] [address] [place] [address] Consulting Physician Rheumatology 10/22/21 documented as of this encounter
--- OUTSIDE RECORDS SUMMARY | 2024-10-28 06:16 | XMS_ITS | Encounter Summary ---
Author Organization [facility] Address [address] [place] [address] Phone Care Team Providers Care Photogrammetric Engineer Name Role Phone Guero Colunga DO Primary Care Provider [phone] Amber Montesinos RN Unavailable [phone] Jil Duncan MD Unavailable [phone] Anita Gillespie MD Unavailable [phone] Encounter Details Date Type Department Care Team (Late st Contact Info) Description 10/21/2021 Documentation [facility] Infectious Diseases [address] [place] [address] Flor Rae [facility] Social History Tobacco Use Types Packs/Day Years Used Date Smoking Tobacco: Never Smokeless Tobacco: Current Chew Alcohol Use Standard Drinks/Week Comments Yes 0 (1 standard drink = 0.6 oz pur e alcohol) occassional Sex and Gender Information Value Date Recorded Sex Assigned at Not on file Legal Sex Male 6:28 AM SALES ORDER SPECIALIST Gender Identity Not on file Sexual Orientation Straight 08/22/2021 9: 23 AM CDT documented as of this encounter Progress Notes * Flor Rae [facility] - 10/21/2021 11:01 AM CST Contacted [employer] [facility] to discuss patient's enrollment status. Per rep, patient is enrolled in [employer] (direct phone is [phone]), enrollment dates are 11.27.2020 - 11.26.2021 Over the course of this current enrollment period, thepatient had a total of 3 shipments (all for 90 days each) shipped out to him on the following dates: 12.25.2020, 02.17.2021, and most recently 10.20.2021. The shipments are sent directly to the patientand the 10.20.2021 shipment is expected to arrive at his home on 10.23.2021. The authorizing prescriber on file is Lisandra Auguste. Per rep, program has received a signed statement of medical necessity from our office that is all that is needed to reenroll patient at the end of November. Per rep, that statement of medical necessity has a prescription attached to it. Updated Lisandra. S ORDER SPECIALIST documented in this encounter Plan of Treatment Scheduled Procedures Name Priority Associated Diagnoses Date/Ti me COLONOSCOPY Encounter for screening for colorectal cancer in high risk patient Family history of rectal cancer documented as of this encounter Visit Diagnoses Not on filedocumented in this encounter Care Teams Photogrammetric Engineer Relationship Specialty Start Date End Date Guero Colunga DO PCP - General Internal Medicine 03/22/19 04/18/23 Amber Montesinos RN Electronic Game Developer Transplant 11/17/19 Jil Duncan MD Consulting Physician Infectious Diseases 01/10/20 Anita Gillespie MD Medical Oncologist/Venipuncturist Medical Oncology 10/07/20 documented as of this encounter
--- OUTSIDE RECORDS SUMMARY | 2024-10-28 06:16 | XMS_ITS | Encounter Summary ---
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 preserved and the deep spaces of the neck are normal. The visualized airway is widely patent. The base of the skull and the temporal bones are normal. Limited views of the brain including the cerebellum and brainstem are normal. The limited view of the [place] is unremarkable. The visualized portions of the orbits are normal. Mucosal thickening of the paranasal sinuses. Partial opacification of left mastoid air cells. 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 Cervical kyphosis centered at C5. Normal vertebral body heights and intervertebral disc spaces. No significant spinal canal stenosis. Please see same day CT chest report for findings below the thoracic inlet. Procedure Note Roman Daniels MD PhD - 10/01/2021 EXAMINATION: CT of the neck with contrast HISTORY: History of liver transplantation in 1998, complicated by posttransplant lymphoproliferative disorder, status post chemotherapy 2016. TECHNIQUE: CT of the neck was performed according to standard protocol after the uneventful administration of intravenous contrast. Contrast information: 119 mL Optiray-350 COMPARISON: 03/10/2019. FINDINGS: Postoperative changes of right submandibular lymph node resection are noted. There is interval increase in size of multiple enlarged, enhancing lymph nodes throughout the neck, slightly worse on the left, the largest of which measures approximately 1.6 cm in short axis (series 3, image 58). The muscles of the neck are normal. Vessels of the neck demonstrate normal course and caliber. Fascial planes are preserved and the deep spaces of the neck are normal. The visualized airway is widely patent. The base of the skull and the temporal bones are normal. Limited views of the brain including the cerebellum and brainstem are normal. The limited view of the [place] is unremarkable. The visualized portions of the orbits are normal. Mucosal thickening of the paranasal sinuses. Partial opacification of left mastoid air cells. 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 Cervical kyphosis centered at C5. Normal vertebral body heights and intervertebral disc spaces. No significant spinal canal stenosis. Please see same day CT chest report for findings below the thoracic inlet. IMPRESSION: 1. 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 2. Please see same day CT chest report for findings below the thoracic inlet. Dictated by: Vel Corcoran MD PHD The radiology attending physician has personally reviewed this study, and had reviewed and/or edited this written report and agrees with it. Electronically signed by: Roman Daniels M.D, PHD Anita Gillespie MD IMG CT PROCEDURES Final Re sult * (ABNORMAL) Cytomegalovirus (CMV) DNA PCR, quantitative Blood (10/01/2021 10:04 AM [facility]) [facility] CMV DNA Detected( A) [facility] Comment: Interpretive Data: The quantifiable range of this assay is 34 IUnits/mL to 10,000,000 IUnits/mL (1.53 log IUnits/mL to 7.0 log IUnits/mL). Testing was performed by the NIA 6800 CMV Test ([employer] Testing performed at [facility]. Current interpretive data was last revised on 2021. CMV DNA IU/mL 14,600(C) IUnits/mL [facility] CMV DNA log IU/mL 4.16 log IUnits/mL [facility] Blood 10/01/2021 10:0 4 AM [facility] 10/01/2021 10:34 AM [facility] Anita Gillespie MD LAB MICROBIOLOGY - GENERAL ORDERABLES Final Result Performing Organization Address [facility] [place] [address] * Erythrocyte sedimentation rate (10/01/2021 9:16 AM [facility]) Erythrocyte sedimentation rate 9 1 - 15 mm/hr [facility] Blood 10/01/2021 9:16 AM [facility] 10/01/2021 9:52 AM [facility] Anita Gillespie MD LAB BLOOD ORDERABLES Final Result Performing Organization Address [facility] [place] [address] * (ABNORMAL) CRP (acute phase) (10/01/2021 9:16 AM [facility]) CRP 17.4(H) <=10.0 mg/L [facility] Blood 10/01/2021 9:16 AM [facility] 10/01/2021 9:51 AM [facility] Anita Gillespie MD LAB BLOOD ORDERABLES Final Result Performing Organization Address 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) documented in this encounter Discontinued Medications Medication Sig Discontinue Reason Start Date End Da te amoxicillin-clavulanate (AUGMENTIN) 875-125 mg per tablet Take 1 tablet by mouth 2 (two) times a day for 21 days Reorder 10/01/2021 10/01/2021 documented as of this encounter Orders Appointment Requests Count Last Ordered Date Fi rst Ordered Date [facility] CLINIC APPOINTMENT REQUEST 2 022 10/01/2021 [facility] LAB APPOINTMENT 1 11/12/2021 documented in this encounter Care Teams Assistant Portfolio Manager Relationship Specialty Start Date End Date Guero Colunga PCP - General Internal Medicine 03/22/19 04/18/23 Amber Montesinos, SHAILESH Emergency Department Rn Transplant 11/17/19 Jil Valdez MD Consulting Physician Infectious Diseases 01/10/20 Anita Gillespie MD Medical Oncologist/Recovery Operator Medical Oncology 10/07/20 documented as of this encounter
--- OUTSIDE RECORDS SUMMARY | 2024-10-28 06:16 | XMS_ITS | Encounter Summary ---
Author Organization [facility] Healthcare Address [address] [place] [address] Care Team Providers Care Cloud Administrator Name Role Phone Guero Colunga Primary Care Provider [phone] Amber Montesinos RN Unavailable [phone] Jil Duncan MD Unavailable [phone] Anita Gillespie MD Unavailable [phone] Encounter Details Date Type Department Care Team (Late st Contact Info) Description 10/03/2021 Telephone [facility] Transplant Liver [address] [address] Mail[address] [phone] [place] [address] Amber Montesinos RN Social History Tobacco Use Types Packs/Day Years Used Date Smoking Tobacco: Never Smokeless Tobacco: Current Chew Alcohol Use Standard Drinks/Week Comments Yes 0 (1 standard drink = 0.6 oz pur e alcohol) occassional Sex and Gender Information Value Date Recorded Sex Assigned at Not on file Legal 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 Gresham that ID will be sending in scripts for treatment of CMV. Will follow up with Dr. Gresham about future tests needed for transplant. Called patient's mom to let them know that they should be receiving a call from ID about starting new medication. DING 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 documented in this encounter Plan of Treatment Scheduled Procedures Name Priority Associated Diagnoses Date/Ti me COLONOSCOPY Encounter for screening for colorectal cancer in high risk patient Family history of rectal cancer documented as of this encounter Visit Diagnoses Not on filedocumented in this encounter Care Teams Cloud Administrator Relationship Specialty Start Date End Date Guero Colunga DO PCP - General Internal Medicine 03/22/19 04/18/23 Amber Montesinos, SHAILESH Blasting Coal Miner Transplant 11/17/19 Jil Duncan MD Consulting Physician Infectious Diseases 01/10/20 Anita Gillespie MD Medical Oncologist/Glass Mold Repairer Medical Oncology 10/07/20 documented as of this encounter
--- OUTSIDE RECORDS SUMMARY | 2024-10-28 06:16 | XMS_ITS | Encounter Summary ---
Author Organization [facility] Healthcare Address [address] [place] [address] Care Team Providers Care Sketch Liner Name Role Phone Guero Colunga DO Primary Care Provider [phone] Amber Montesinos RN Unavailable [phone] Jil Duncan MD Unavailable [phone] Anita Gillespie MD Unavailable [phone] Tabitha Hurley MD Unavailable [phone] Encounter Details Date Type Department Care Team (Late st Contact Info) Description 10/23/2021 Telephone [facility] Transplant Liver [address] [address] Mailstop [phone] [place] [address] Amber Montesinos RN Social History Tobacco Use Types Packs/Day Years Used Date Smoking Tobacco: Never Smokeless Tobacco: Current Chew Alcohol Use Standard Drinks/Week Comments Yes 0 (1 standard drink = 0.6 oz pur e alcohol) occassional Sex and Gender Information Value Date Recorded Sex Assigned at Not on file 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 Direct bilirubin now added. HOL STILL OPERATOR * Telephone Encounter - Amber Vargas RN - 10/23/2021 11:32 AM ALCOHOL STILL OPERATOR Labs reviewed with Madelaine Martínez NP with transplant hepatology and Dr. Osorio. CMV result forwarded to AIDEN Fry with ID. Plan to include direct bilirubin with future standing orders. Will continue to monitor LFT trend as patient had recent imaging the beginning of this month. HOL STILL OPERATOR documented in this encounter Plan of Treatment Scheduled Procedures Name Priority Associated Diagnoses Date/Ti me COLONOSCOPY Encounter for screening for colorectal cancer in high risk patient Family history of rectal cancer documented as of this encounter Visit Diagnoses Not on filedocumented in this encounter Care Teams Sketch Liner Relationship Specialty Start Date End Date Guero Colunga DO PCP - General Internal Medicine 03/22/19 04/18/23 Amber Montesinos, SHAILESH Core Blower Transplant 11/17/19 Jil Duncan MD Consulting Physician Infectious Diseases 01/10/20 Anita Gillespie MD Medical Oncologist/Mattress Maker Medical Oncology 10/07/20 Tabitha Hurley MD [address] [facility] [address] [place] [address] Consulting Physician Rheumatology 10/22/21 documented as of this encounter
--- OUTSIDE RECORDS SUMMARY | 2024-10-28 06:16 | XMS_ITS | Encounter Summary ---
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) Frequent sinus infections Anita Gillespie MD Phone: tel: fax: Massiel Gastelum MD [address] [place] [address] Phone: tel: fax: Referral ID Status Reason Start Date Expiration Date V isits Requested Visits Authorized [id number] Closed Specialty Services Required 10/28/2021 11/27/2022 99 99 Question Answer Please select the performing region: [facility] (All Locations) [[id number]] To provider: MASSIEL GASTELUM [[id number]] # of visits: 1 Comments Recurrent sinus infections requiring multiple courses antibiotics TAL CAMPAIGN SPECIALIST Encounter Details Date Type Department Care Team (Late st Contact Info) Description 10/28/2021 Orders Only [facility] Oncology [address] [facility] [address] [place] [address] [place] [address] Samreen Greene RN 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) (Primary Dx); Cytomegalovirus (CMV) viremia (CMS/HCC) (HCC); Frequent sinus infections Social History Tobacco Use Types Packs/Day Years Used Date Smoking Tobacco: Never Smokeless Tobacco: Current Chew Alcohol Use Standard Drinks/Week Comments Yes 0 (1 standard drink = 0.6 oz pur e alcohol) occassional Sex and Gender Information Value Date Recorded Sex Assigned at Not on file Legal Sex Male 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 Gender Identity Not on file Sexual Orientation Straight 08/22/2021 9 :23 AM CDT documented as of this encounter Plan of Treatment Scheduled Procedures Name Priority Associated Diagnoses Date/Ti me COLONOSCOPY Encounter for screening for colorectal cancer in high risk patient Family history of rectal cancer Scheduled Referrals Name Type Priority Associated Diagnoses Orde r Schedule Ambulatory referral to ENT Outpatient Referral Routine 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) Cytomegalovirus (CMV) viremia (CMS/HCC) (HCC) Frequent sinus infections Expected: 10/29/2021 (Approximate), Expires: 10/28/2022 documented as of this encounter Visit Diagnoses Diagnosis 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
--- OUTSIDE RECORDS SUMMARY | 2024-10-28 06:16 | XMS_ITS | Encounter Summary ---
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) Procedures CT abdomen pelvis with contrast Anita Gillespie MD Phone: tel: fax: [address] [phone] Referral ID Status Reason Start Date Expiration Date Visits Re quested Visits Authorized [id number] Closed 10/01/2021 10/31/2022 1 1 IDE [employer] * MRI/CAT/PET Scan (Routine) - Closed Specialty Diagnoses / Procedures Referred By Sascha rey Referred To Contact Radiology Diagnoses 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) Procedures CT soft tissue neck with contrast Anita Gillespie MD Phone: tel: fax: [address] [phone] Referral ID Status Reason Start Date Expiration Date Visits Re quested Visits Authorized [id number] Closed 10/01/2021 10/31/2022 1 1 IDE [employer] * MRI/CAT/PET Scan (Routine) - Closed Specialty Diagnoses / Procedures Referred By Contac t Referred To Contact Radiology Diagnoses Pulmonary nodules Procedures CT Chest High Resolution WO Contrast Jan Bailon MD [address] [place] [address] Phone: tel: fax: [address] [phone] Referral ID Status Reason Start Date Expiration Date Visits Re quested Visits Authorized [id number] Closed 08/22/2021 09/21/2022 1 1 IDE [employer] Reason for Visit * MRI/CAT/PET Scan (Routine) - Closed Specialty Diagnoses / Procedures Referred By Contac t Referred To Contact Radiology Diagnoses Pulmonary nodules Procedures CT Chest High Resolution WO Contrast Jan Bailon MD [address] [place] [address] Phone: tel: fax: [address] [phone] Referral ID Status Reason Start Date Expiration Date Visits Re quested Visits Authorized [id number] Closed 08/22/2021 09/21/2022 1 1 Encounter Details Date Type Department Care Team (Latest Contact Info) Description 10/01/2021 9:50 AM OUTSIDE [employer] - 10/01/2021 11:59 PM OUTSIDE [employer] SAL[employer] Hospital Encounter [facility] [address] [place] [id number] Jan Bailon MD [address] [place] [address] Pulmonary nodules; 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) Discharge [...] on file Legal Sex Male 6:28 AM OUTSIDE [employer] Gender Identity Not on file Sexual Orientation Straight 08/22/2021 9: 23 AM CDT documented as of this encounter Medications at Time of Discharge amoxicillin-clav ulanate (AUGMENTIN) 875-125 mg per tablet Take 1 tablet by mouth 2 (two) times a day for 21 days 42 tablet 10/01/2021 10/22/2021 predniSONE (DELTASONE) 5 mg tablet Take 3 tablets (15 mg) by mouth daily for 5 days, THEN 2 tablets (10 mg) daily for 5 days. 25 tablet 10/01/2021 10/11/2021 IgG/hyaluronidas e,recombinant (HYQVIA SUBQ) Inject under the skin 12/27/2021 tacrolimus (PROGRAF) 0.5 mg immediate-releas e capsule TAKE 1 CAPSULE BY MOUTH TWICE DAILY 60 capsule 11 06/25/2021 12/08/2021 ursodioL (ACTIGALL) 300 mg capsule Take 2 capsules (600 mg total) by mouth daily with dinner 180 capsule 3 07/22/2021 10/02/2021 valGANciclovir (VALCYTE) 450 mg tabletIndication s:cytomegaloviru s disease Take 2 tablets (900 mg total) by mouth 2 (two) times a day 120 tablet 11/13/2020 03/06/2022 documented as of this encounter Discharge Disposition Disposition Code Departure Means Destination Discharge to home or self care documented in this encounter Plan of Treatment Scheduled Procedures Name Priority Associated Diagnoses Date/Ti ar COLONOSCOPY Encounter for screening for colorectal cancer in high risk patient Family history of rectal cancer documented as of this encounter Procedures Procedure Name Priority Date/Time Associated Diagnosis Comments CT CHEST HIGH RESOLUTION WO CONTRAST Schedule Routine, Read Routine (OP Routine) 10/01/2021 12:41 PM OUTSIDE [employer] Pulmonary nodules CT ABDOMEN PELVIS W CONTRAST Schedule Routine, Read Routine (OP Routine) 10/01/2021 12:41 PM OUTSIDE [employer] 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) CT SOFT TISSUE NECK W CONTRAST Schedule Routine, Read Routine (OP Routine) 10/01/2021 12:41 PM OUTSIDE [employer] 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) documented in this encounter Results * CT abdomen pelvis with contrast (10/01/2021 12:41 PM OUTSIDE [employer]) Anatomical Region Laterality Modality Body N/A Computed Tomogra phy 10/01/2021 1:05 PM OUTSIDE [employer] Impressions 10/01/2021 1:05 PM OUTSIDE [employer] 1. ??Previously noted hepatic segment 4B lesion corresponding to chronic inflammation no longer well seen, with no new focal liver lesion. 2. ??Relatively unchanged extensive abdominopelvic lymphadenopathy. Please refer to separate report from contemporaneous high resolution chest CT for further description of findings in the chest. Electronically signed by: Swapna Godoy M.D. Narrative 10/01/2021 1:05 PM OUTSIDE [employer] EXAMINATION: CT of the abdomen and pelvis [...] tissue neck with contrast (10/01/2021 12:41 PM OUTSIDE [employer]) Anatomical Region Laterality Modality Head and Neck N/A Computed Tomogra phy 10/01/2021 1:53 PM OUTSIDE [employer] Impressions 10/01/2021 2:02 PM OUTSIDE [employer] 1. ??Worsening diffuse cervical lymphadenopathy, likely secondary [...] Daniels M.D, PHD Narrative 10/01/2021 2:02 PM OUTSIDE [employer] EXAMINATION: CT of the neck with contrast HISTORY: History of liver transplantation in 1998, complicated by posttransplant lymphoproliferative disorder, status post chemotherapy 2017. TECHNIQUE: CT of the neck was [...] are normal. The limited view of the [place] is unremarkable. The visualized portions [...] are normal. The limited view of the [place] is unremarkable. The visualized portions [...] Electronically signed by: Roman Daniels M.D, PHD us Anita Gillespie MD IMG CT PROCEDURES Final Re sult * CT Chest High Resolution WO Contrast (10/01/2021 12:41 PM OUTSIDE [employer]) Anatomical Region Laterality Modality Chest N/A Computed Tomogra phy 10/01/2021 1:04 PM OUTSIDE [employer] Impressions 10/01/2021 1:04 PM OUTSIDE [employer] 1. Worsening extensive lymphadenopathy throughout the chest, likely worsening post transplant lymphoproliferative disorder. 2. New small scattered groundglass nodules, most pronounced in right lower lobe, likely infectious. Electronically signed by: Сергей Kong M.D. Narrative 10/01/2021 1:04 PM OUTSIDE [employer] EXAMINATION: CT CHEST HIGH RESOLUTION WO CONTRAST HISTORY: dropping lung function in context of [id number] TECHNIQUE: ??Transaxial computed tomographic images of the chest was performed without contrast, according to the high resolution chest CT protocol. COMPARISON: 02/05/2021 FINDINGS: There is extensive lymphadenopathy in both axilla, supraclavicular regions, mediastinum and upper abdomen. For reference, there is a left axillary lymph node which measures 3.2 cm, previously 1.8 cm (image 77). Similarly, a subcarinal lymph node increased, now measuring 3.6 cm, previously 2.9 cm (image 142). Heart size is normal. No pericardial effusion. There are scattered tiny groundglass nodules bilaterally throughout both lungs. Several of the right lower lobe are new. No pleural effusion or pneumothorax. Imaged upper abdominal organs demonstrate changes of liver transplantation. There is lymphadenopathy in the upper abdomen. Procedure Note Сергей Kong MD - 10/01/2021 EXAMINATION: CT CHEST HIGH RESOLUTION WO CONTRAST HISTORY: dropping lung function in context of [id number] TECHNIQUE: Transaxial computed tomographic images of the chest was performed without contrast, according to the high resolution chest CT protocol. COMPARISON: 02/05/2021 FINDINGS: There is extensive lymphadenopathy in both axilla, supraclavicular regions, mediastinum and upper abdomen. For reference, there is a left axillary lymph node which measures 3.2 cm, previously 1.8 cm (image 77). Similarly, a subcarinal lymph node increased, now measuring 3.6 cm, previously 2.9 cm (image 142). Heart size is normal. No pericardial effusion. There are scattered tiny groundglass nodules bilaterally throughout both lungs. Several of the right lower lobe are new. No pleural effusion or pneumothorax. Imaged upper abdominal organs demonstrate changes of liver transplantation. There is lymphadenopathy in the upper abdomen. IMPRESSION: 1. Worsening extensive lymphadenopathy throughout the chest, likely worsening post transplant lymphoproliferative disorder. 2. New small scattered groundglass nodules, most pronounced in right lower lobe, likely infectious. Electronically signed by: Сергей Kong M.D. 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) documented in this encounter Administered Medications Inactive Administered Medications - up to 3 most recent administrations Medication Order MAR Action Action Date Dose Rate Site ioversoL (OPTIRAY 350) syringe syringe 125 mL 125 mL, intravenous, Once in imaging, contrast, Starting on Wed10/01/21 at 1035, For 1 dose Contrast Given 10/01/2021 12:42 PM OUTSIDE [employer] 119 mL documented in this encounter Orders Medications Ordered That John ht Not Have Been Administered Count Last Ordered Date First Ordered Date ioversoL (OPTIRAY 350) syrin ge syringe 125 mL 1 10/01/2021 documented in this encounter Care Teams Facility Service Associate Relationship Specialty Start Date End Date Guero Colunga DO PCP - General Internal Medicine 03/22/19 04/18/23 Amber Montesinos RN Instructional Leader Transplant 11/17/19 Jil Duncan MD Consulting Physician Infectious Diseases 01/10/20 Anita Gillespie MD Medical Oncologist/Line Ordering Clinician Medical Oncology 10/07/20 documented as of this encounter
--- OUTSIDE RECORDS SUMMARY | 2024-10-28 06:16 | XMS_ITS | Encounter Summary ---
Author Organization [facility] Address [address] [place] [address] Phone Care Team Providers Care Electroslag Welding Machine Operator Name Role Phone Guero Colunga DO Primary Care Provider [phone] Amber Montesinos RN Unavailable [phone] Jil Duncan MD Unavailable [phone] Anita Gillespie MD Unavailable [phone] Encounter Details Date Type Department Care Team (Late st Contact Info) Description 10/01/2021 12:00 PM ORNAMENTAL BRONZE WORKER Office Visit [facility] Rheumatology [address] [facility] Advanced Medicine 5th [place] [address] [place] [id number] Tabitha Hurley MD [address] [place] [address] Abnormal laboratory 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 (Primary Dx); Arthritis; High risk medication use Social History Tobacco Use Types Packs/Day Years Used Date Smoking Tobacco: Never Smokeless Tobacco: Current Chew Alcohol Use Standard Drinks/Week Comments Yes 0 (1 standard drink = 0.6 oz pur e alcohol) occassional Sex and Gender Information Value Date Recorded Sex Assigned at Not on file Legal Sex Male 6:28 AM ORNAMENTAL BRONZE WORKER Gender Identity Not on file Sexual Orientation Straight 08/22/2021 9: 23 AM CDT documented as of this encounter Last Filed Vital Signs Vital Sign Reading Time Taken Comments Blood Pressure 111/71 10/01/2021 10:41 AM ORNAMENTAL BRONZE WORKER Pulse 71 10/01/2021 10:41 AM ORNAMENTAL BRONZE WORKER Temperature 36.6 ??C (97.8 ??F) 10/01/2021 10:[address] Respiratory Rate - - Oxygen Saturation - - Inhaled Oxygen Concentration - - Weight 56.1 kg (123 lb 9.6 oz) 10/01/2021 10:41 AM ORNAMENTAL BRONZE WORKER Height 172.7 cm (5' 8 ) 10/01/2021 10:41 AM ORNAMENTAL BRONZE WORKER Body Mass Index 18.79 10/01/2021 10:41 AM ORNAMENTAL BRONZE WORKER documented in this encounter Patient Instructions * Patient Instructions* Tabitha Hurley MD - 10/01/2021 12:00 PM ORNAMENTAL BRONZE WORKER Will get PCR nasal swab for covid and resp virus Start prednisone 15mg x 5 d then 10mg daily for 5 d Start hyqvia SQ monthly injections We will get CK and aldolase added to morning labs Next visit we need to recheck KEISHA, [id number] F/u in 3 months telemedicine MENTAL BRONZE WORKER MENTAL BRONZE WORKER documented in this encounter Ordered Prescriptions Prescription Sig Dispense Quantity Refills Last Filled Start Date End Date predniSONE (DELTASONE) 5 mg tablet Take 3 tablets (15 mg) by mouth daily for 5 days, THEN 2 tablets (10 mg) daily for 5 days. 25 tablet 10/01/2021 documented in this encounter Progress Notes * Tabitha Hurley MD - 10/01/2021 12:00 PM CST Subjective/Objective Patient ID: Adi Nichols is a 26 y.o.[place]. Follow up for arthralgias and + SSA-52kd antibodies. 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 He last saw me 06/18/2021. He was doing well on hyqvia SQ monthly but when it was delayed he had more joint pains He has not had hyqvia since 08/09/2021. He started hurting again 09/27/2021. He hurts in his ankles and neck area Knee was hurting yesterday He has noticed swelling in his ankles. He is starting to feel weaker but currently is able to do everything. He developed a sinus infection 3 weeks ago: nasal congestion, 1 episode of sweating. He has not been tested for covid He has AM cough. He is vaccinated for covid. Has not received the booster. He has not had his flu shot. Review of Systems Constitutional: Positive for fatigue. Negative for activity change, chills, diaphoresis, fever and unexpected weight change. HENT: Positive for congestion, sinus pressure and sinus pain. Negative for drooling, facial swelling, mouth sores, postnasal drip, sore throat and trouble swallowing. No oral or nasal ulcers Eyes: Negative for photophobia, pain, redness, itching and visual disturbance. Respiratory: Positive for cough (only in AM). Negative for chest tightness, shortness of breath, wheezing and stridor. Cardiovascular: Negative for chest pain. Gastrointestinal: Positive for diarrhea (started yesterday afternoon). Negative for abdominal pain,blood in stool, constipation, nausea and vomiting. Endocrine: Negative for heat intolerance. Genitourinary: Negative for genital sores and hematuria. Musculoskeletal: Positive for arthralgias, back pain (midback thoracic area), joint swelling and neck pain. Negative for gait problem, myalgias and neck stiffness. Skin: Negative for color change, pallor and rash. Neurological: Negative for seizures, syncope, weakness, light-headedness, numbness and headaches. Hematological: Negative for adenopathy. Psychiatric/Behavioral: Negative for decreased concentration, dysphoric mood, sleep disturbance andsuicidal ideas. The patient is not nervous/anxious. Past Medical History: Diagnosis Date ??? CMV (cytomegalovirus infection) (HCC) ??? Community [...] ??? PNA (pneumonia) ??? Pulmonary emboli (HCC) Current Outpatient Medications Medication Sig Dispense Refill ??? amoxicillin-clavulanate (AUGMENTIN) 875-125 mg per tablet Take 1 tablet by mouth 2 (two) times a day for 21 days 42 tablet 0 ??? tacrolimus (PROGRAF) 0.5 mg immediate-release capsule TAKE 1 CAPSULE BY MOUTH TWICE DAILY 60 capsule 11 ??? ursodioL (ACTIGALL) 300 mg capsule Take 2 capsules (600 mg total) by mouth daily with dinner 180 capsule 3 ??? IgG/hyaluronidase,recombinant (HYQVIA SUBQ) Inject under the skin (Patient not taking: Reportedon 10/01/2021) No current facility-administered medications for this visit. Facility-Administered Medications Ordered in Other Visits Medication Dose Route Frequency Provider Last Rate Last Admin ??? ioversoL (OPTIRAY 350) syringe syringe 125 mL 125 mL intravenous Once in imaging Jan Bailon MD Family History Problem Relation Age of Onset ??? Rectal cancer Mother Rectal cancer - (Added by TW Conv) ??? Diabetes type II Sister Family history of type 2 diabetes mellitus - (Added by TW Conv) ??? Anesthesia problems Other ??? No Known Problems Father Social History Tobacco Use ??? Smoking status: Never Smoker ??? Smokeless tobacco: Current User Types: Chew Substance Use Topics ??? Alcohol use: Yes Comment: occassional ??? Drug use: Not Currently Vitals BP 111/71 Pulse 71 Temp 36.6 ??C (97.8 ??F) Ht 172.7 cm (5' 8 ) Wt 56.1 kg (123 lb 9.6 oz) BMI 18.79 kg/m?? Physical Exam Vitals reviewed. Constitutional: General: He is not in acute distress. Appearance: Normal appearance. He is well-developed. He is not diaphoretic. HENT: Head: Normocephalic. Mouth/Throat: Mouth: Mucous membranes are moist. Pharynx: Oropharynx is clear. No oropharyngeal exudate (no oral ulcers). Eyes: General: No scleral icterus. Right eye: No discharge. Left eye: No discharge. Extraocular Movements: Extraocular movements intact. Conjunctiva/sclera: Conjunctivae normal. Pupils: Pupils are equal, round, and reactive to light. Neck: Thyroid: No thyromegaly. Cardiovascular: Rate and Rhythm: Normal rate. Pulmonary: Effort: Pulmonary effort is normal. Breath sounds: No wheezing. Chest: Chest wall: No tenderness. Musculoskeletal: General: Swelling (right ankle T2S1 lateral aspect, knees T0Sf left, left shoulder PROM, MCPs/ [id number] FROM, strength 5/5 strength UE/ LE) and tenderness present. No deformity or signs of injury. Cervical back: Normal range of motion and neck supple. Right lower leg: No edema. Left lower leg: No edema. Lymphadenopathy: Cervical: No cervical adenopathy. Skin: General: Skin is warm and dry. Capillary Refill: Capillary refill takes less than 2 seconds. Findings: No erythema or rash (no rashes). Neurological: General: No focal deficit present. Mental Status: He is alert and oriented to person, place, and time. Motor: No abnormal muscle tone. Psychiatric: Mood and Affect: Mood normal. Behavior: Behavior normal. Thought Content: Thought content normal. Judgment: Judgment normal. Results for ADI NICHOLS ( ) as of 10/06/2021 13:55 Ref. Range 06/21/2021 08:08 08/22/2021 14:07 10/01/2021 07:12 10/01/2021 09:16 10/01/2021 10:04 10/01/2021 12:41 Sodium Latest Ref Range: 135 - 145 mmol/L 141 138 Potassium Lvl Latest Ref Range: 3.5 - 5.3 mmol/L 4.3 Potassium, pl Latest Ref Range: 3.3 - 4.9 mmol/L 4.8 Chloride Latest Ref Range: 97 - 110 mmol/L 106 105 CO2 Latest Ref Range: 22 - 32 mmol/L 28 26 Anion gap Latest Ref Range: 2 - 15 mmol/L 7 BUN Latest Ref Range: 8 - 25 mg/dL 13 11 Creatinine Latest Ref Range: 0.80 - 1.30 mg/dL 0.83 0.78 (L) Glucose Latest Ref Range: 70 - 199 mg/dL 95 98 Calcium Latest Ref Range: 8.5 - 10.3 mg/dL 9.3 8.8 Bilirubin, total Latest Ref Range: 0.1 - 1.2 mg/dL 0.7 1.4 (H) Protein, pl Latest Ref Range: 6.5 - 8.5 g/dL 6.0 (L) Protein, sr Latest Ref Range: 6.1 - 8.1 g/dL 6.4 Albumin Latest Ref Range: 3.5 - 5.0 g/dL 3.9 3.9 eGFR If NonAfricn Am Latest Ref Range: > OR = 60 mL/min/1.73m2 120 eGFR If Africn Am Latest Ref Range: > OR = 60 mL/min/1.73m2 139 eGFR Latest Ref Range: 90 - 130 mL/min/1.73 m2 >90 Alk phos Latest Ref Range: 40 - 130 Units/L 305 (H) 413 (H) AST Latest Ref Range: 10 - 50 Units/L 80 (H) 127 (H) ALT Latest Ref Range: 7 - 55 Units/L 73 (H) 106 (H) Alb/glob ratio Latest Ref Range: 1.0 - 2.5 (calc) 1.6 GGT Latest Ref Range: 3 - 70 U/L 125 (H) BUN_Creat Ratio Latest Ref Range: 6 - 22 (calc) NOT APPLICABLE Aldolase Latest Ref Range: 0.1 - 8.0 Units/L 12.2 (H) CK Latest Ref Range: 40 - 300 Units/L 82 Lactate dehydrogenase (LDH) Latest Ref Range: 100 - 250 Units/L 240 WBC Latest Ref Range: 3.8 - 9.8 K/cumm 11.3 (H) 14.4 (H) Hgb Latest Ref Range: 13.8 - 17.2 g/dL 14.9 14.1 Hct Latest Ref Range: 40.7 - 50.3 % 44.0 41.5 Plt Latest Ref Range: 140 - 440 K/cumm 205 Platelets Latest Ref Range: 140 - 400 Thousand/uL 235 MPV Latest Ref Range: 6.8 - 10.4 fL 11.6 8.1 RBC Latest Ref Range: 4.50 - 5.70 M/cumm 4.27 (L) RBC, POC Latest Ref Range: 4.20 - 5.80 Million/uL 4.58 MCV Latest Ref Range: 80.0 - 97.6 fL 96.1 97.4 MCH Latest Ref Range: 26.7 - 33.7 pg 32.5 33.0 MCHC Latest Ref Range: 32.7 - 35.5 g/dL 33.9 33.9 RDW CV Latest Ref Range: 11.8 - 14.6 % 13.8 15.9 (H) NRBC abs Latest Ref Range: 0.00 - 0.01 K/cumm 0.01 Neutrophil abs Latest Ref Range: 1.8 - 6.6 K/cumm 6.2 Lymphocyte abs Latest Ref Range: 1.2 - 3.3 K/cumm 4.9 (H) Lymphocytes, abs Latest Ref Range: 850 - 3,900 cells/uL 6,305 (H) Monocyte abs Latest Ref Range: 0.2 - 1.2 K/cumm 1,955 (H) 2.7 (H) Eosinophil abs Latest Ref Range: 0.0 - 0.5 K/cumm 0.6 (H) Eosinophils, abs Latest Ref Range: 15 - 500 cells/uL 802 (H) Basophil abs Latest Ref Range: 0.0 - 0.2 K/cumm 0.0 Basophils, abs Latest Ref Range: 0 - 200 cells/uL 90 Neutrophils Latest Units: % 19 Neutrophil pct Latest Units: % 43.2 Lymphocyte pct Latest Units: % 34.0 Monocytes Latest Units: % 17.3 Monocyte pct Latest Units: % 18.7 Eosinophils Latest Units: % 7.1 Eosinophil pct Latest Units: % 3.8 Basophils Latest Units: % 0.8 Basophil pct Latest Units: % 0.3 Neutrophils, abs Latest Ref Range: 1,500 - 7,800 cells/uL 2,147 CYTOMEGALOVIRUS (CMV) DNA, QUANT GEN LAB Unknown Rpt (A) CMV DNA IU/mL Latest Units: IUnits/mL 14,600 (Critical) CMV DNA log IU/mL Latest Units: log IUnits/mL 4.16 CMV DNA Unknown Detected (A) Tacrolimus, highly Sensitive, LC/MS/MS Latest Units: mcg/L 6.2 Tacrolimus random Latest Units: ng/mL 7.3 Immunoglobulin G Latest Ref Range: 700.0 - 1,600.0 mg/dL 440.0 (L) CRP Latest Ref Range: <=10.0 mg/L 17.4 (H) Erythrocyte sedimentation rate Latest Ref Range: 1 - 15 mm/hr 9 Lymphocyte pct Latest Units: % 55.8 CT ABDOMEN PELVIS W CONTRAST Unknown Rpt CT CHEST HIGH RESOLUTION WO CONTRAST Unknown Rpt CT SOFT TISSUE NECK W CONTRAST Unknown Rpt FEV1 %PRE PRED Latest Units: % 58 FEV1 PRE Latest Units: L 2.42 FEV1/FVC PRE Latest Units: % 80.9 FVC %PRE PRED Latest Units: % 60 FVC PRE Latest Units: L 2.99 Assessment: The primary encounter diagnosis was Abnormal laboratory 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. Diagnoses of Arthritis and High risk medication use were also pertinent to this visit. Adi is a 26 y.o. [place] with h/o autoimmune hepatitis s/p liver transplant 1998, NHL 2016/ EBV positive lymphoproliferative disorder. He is seeing rheumatology for joint pains which started in 04/2020. At that time he had no joint swelling. 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 He was started on IVIG: hyqvia monthly SQ injections which resolved his symptoms. He he saw me in consultation in May he had no symptoms and exam was benign; He did not have any concerning rashes or inflammatory arthritis. He did not report any symptoms of lupus, sjogren's syndrome, or myositis. He did not have sicca complaints Since he was doing well I asked if he could stop IVIG and I could reassess him off meds. In june when there was 1 week delay in receiving the shipment Adi had the onset of joint painsagain but no muscle wealkness. When I saw him via telehealth visit in 06/2021 he was feeling fine again since he had received the hyqivia He last took IVIG 08/09/2021. September 27 he started hurting again and now has developed ankle swelling and tenderness of some joints without swelling He does not have muscle weakness on exam. I will get muscle enzymes (unfortunately labs were collected earlier today at his first appt thus only CK, aldolase could be added, not LDH) He would like to be back on IVIG and oncology would like him to be on IVIG as well. I still do not have a clear diagnosis for Adi but since his joints improve significantly while on IVIG we will restart I will continue to monitor for CTD, especially myositis and sjogren's syndrome Follow up in 3 months via zoom I spent a total of 30 minutes in care of the patient today including pre- and post-work, examination, counseling and/or coordination of care as documented within the note on 10/06/2021 Plan: Patient Instructions Will get PCR nasal swab for covid and resp virus Start prednisone 15mg x 5 d then 10mg daily for 5 d Start hyqvia SQ monthly injections We will get CK and aldolase added to morning labs Next visit we need to recheck KEISHA, [id number] F/u in 3 months telemedicine No orders of the defined types were placed in this encounter. MENTAL BRONZE WORKER documented in this encounter Plan of Treatment Scheduled Procedures Name Priority Associated Diagnoses Date/Ti me COLONOSCOPY Encounter for screening for colorectal cancer in high risk patient Family history of rectal cancer documented as of this encounter Visit Diagnoses Diagnosis Abnormal laboratory 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- Primary Other abnormal clinical finding Arthritis Unspecified arthropathy, site unspecified High risk medication use documented in this encounter Care Teams Electroslag Welding Machine Operator Relationship Specialty Start Date End Date Guero Colunga DO PCP - General Internal Medicine 03/22/19 04/18/23 Amber Montesinos, SHAILESH Sheet Metal Layout Worker Transplant 11/17/19 Jil Duncan MD Consulting Physician Infectious Diseases 01/10/20 Anita Gillespie MD Medical Oncologist/Packer Insulation Medical Oncology 10/07/20 documented as of this encounter
--- OUTSIDE RECORDS SUMMARY | 2024-10-28 06:16 | XMS_ITS | Encounter Summary ---
Author Organization [facility] Address [address] [place] [address] Care Team Providers Care Clinical Biostatistics Director Name Role Phone Guero Colunga DO Primary Care Provider [phone] Amber Montesinos RN Unavailable [phone] Jil Duncan MD Unavailable [phone] Anita Gillespie MD Unavailable [phone] Encounter Details Date Type Department Care Team (Late st Contact Info) Description 10/07/2021 2:00 PM BRAND RECORDER Lab [facility] Advanced Medicine [facility] Advanced Medicine ([facility]) [address] [place] [address] Lisandra Auguste, AIDEN [address] [facility] [address] [place] [address] Cytomegalovirus infection, unspecified cytomegaloviral infection [...] on file Legal Sex Male 6:28 AM BRAND RECORDER Gender Identity Not on file Sexual Orientation Straight 08/22/2021 9: 23 AM CDT documented as of this encounter Discharge Disposition Disposition Code Departure Means Destination Discharge to home or self care documented in this encounter Miscellaneous Notes * Result Encounter Note - Lisandra Auguste NP - 10/14/2021 12:51 PM BRAND RECORDER CMV resistance testing is back. Looks like no mutations were detected. D RECORDER documented in this encounter Plan of Treatment Scheduled Procedures Name Priority Associated Diagnoses Date/Ti me COLONOSCOPY Encounter for screening for colorectal cancer in high risk patient Family history of rectal cancer documented as of this encounter Procedures Procedure Name Priority Date/Time Associated Diagnosis Comments CMV MUTATION DETECTION Routine 10/07/2021 2:10 PM BRAND RECORDER Cytomegalovirus infection, unspecified cytomegaloviral infection type (HCC) documented in this encounter Results * CMV mutation detection Blood (10/07/2021 2:10 PM BRAND RECORDER) Report Final Report: For additional result information, see attached scanned report. [facility] Blood 10/07/2021 2:10 PM BRAND RECORDER 10/07/2021 2:27 PM BRAND RECORDER Narrative [facility] - 10/14/2021 12:38 PM BRAND RECORDER Testing performed by: [employer] [address]. Lisandra Auguste NP LAB MICROBIOLOGY - GENERA L ORDERABLES Final Result [facility] Department [place] [address] documented in this encounter Visit Diagnoses Diagnosis Cytomegalovirus infection, unspecified cytomegaloviral infection type (HCC) documented in this encounter Care Teams Clinical Biostatistics Director Relationship Specialty Start Date End Date Guero Colunga DO PCP - General Internal Medicine 03/22/19 04/18/23 Amber Montesinos RN Floor Technician Transplant 11/17/19 Jil Duncan MD Consulting Physician Infectious Diseases 01/10/20 Anita Gillespie MD Medical Oncologist/Farmworker [employer] Medical Oncology 10/07/20 documented as of this encounter
--- OUTSIDE RECORDS SUMMARY | 2024-10-28 06:16 | XMS_ITS | Encounter Summary ---
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) Procedures US Guided Biopsy Lymph Node Superficial Left Anita Gillespie MD Phone: tel: fax: [address] [address] Referral ID Status Reason Start Date Expiration Date Visits Re quested Visits Authorized [id number] Closed 10/01/2021 10/31/2022 1 1 ING SOLUTION MAKER Reason for Visit * Diagnostic Imaging (Routine) - Closed Specialty Diagnoses / Procedures Referred By Sascha rey Referred To Contact Diagnoses 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) Procedures US Guided Biopsy Lymph Node Superficial Left Anita Gillespie MD Phone: tel: fax: [address] [place] [address] Referral ID Status Reason Start Date Expiration Date Visits Re quested Visits Authorized [id number] Closed 10/01/2021 10/31/2022 1 1 Encounter Details Date Type Department Care Team (Latest Contact Info) Description 10/07/2021 1:43 PM TANNING SOLUTION MAKER - 10/07/2021 11:59 PM TANNING SOLUTION MAKER Hospital Encounter [facility] [address] [place] [address] Anita Gillespie MD [address] [facility] [address] [place] [address] 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) Discharge [...] on file Legal Sex Male 6:28 AM TANNING SOLUTION MAKER Gender Identity Not on file Sexual Orientation Straight 08/22/2021 9: 23 AM CDT documented as of this encounter Discharge Instructions * Discharge Instructions* Eunice Callaway RDMS - 10/07/2021 2:34 PM TANNING SOLUTION MAKER Fine Needle Aspiration Biopsy WHAT YOU NEED TO KNOW: You may be sore or have bruising or swelling for a few days. Do not breastfeed for 24 to 48 hours if you received contrast liquid. The contrast liquid may harm your baby. DISCHARGE INSTRUCTIONS: Seek care immediately if: ?? Blood soaks through your bandage. ?? Your bruise suddenly gets larger and feels hard. ?? You have severe pain where the biopsy was taken. Contact your healthcare provider if: ?? You have a fever or chills. ?? Your biopsy site is red, swollen, or draining pus. ?? You have nausea or are vomiting. ?? Your skin is itchy, swollen, or you have a rash. ?? Your pain does not get better after you take pain medicine. ?? You have questions or concerns about your condition or care. Medicines: You may need any of the following: ?? NSAIDs , such as ibuprofen, help decrease swelling, pain, and fever. This medicine is available with or without a doctor's order. NSAIDs can cause stomach bleeding or kidney problems in certain people. If you take blood thinner medicine, always ask your healthcare provider if NSAIDs are safe foryou. Always read the medicine label and follow directions. ?? Acetaminophen decreases pain and fever. It is available without a doctor's order. Ask how much to take and how often to take it. Follow directions. Read the labels of all other medicines you are using to see if they also contain acetaminophen, or ask your doctor or pharmacist. Acetaminophen can cause liver damage if not taken correctly. Do not use more than 4 grams (4,000 milligrams) total of acetaminophen in one day. ?? Prescription pain medicine may be given. Ask your healthcare provider how to take this medicine safely. Some prescription pain medicines contain acetaminophen. Do not take other medicines that contain acetaminophen without talking to your healthcare provider. Too much acetaminophen may cause liver damage. Prescription pain medicine may cause constipation. Ask your healthcare provider how to prevent or treat constipation. ?? Take your medicine as directed. Contact your healthcare provider if you think your medicine is not helping or if you have side effects. Tell him or her if you are allergic to any medicine. Keep a list of the medicines, vitamins, and herbs you take. Include the amounts, and when and why you take them. Bring the list or the pill bottles to follow-up visits. Carry your medicine list with you in case of an emergency. Care for your biopsy site as directed: If you have a tight-fitting bandage, you can remove it in 24to 48 hours, or as directed. Ask your healthcare provider when your biopsy site can get wet. Carefully wash around the site with soap and water. It is okay to let soap and water gently run over your biopsy site. Do not scrub the site. Dry the area and put on new, clean bandages as directed. Change your bandages when they get wet or dirty. Check your biopsy site every day for signs of infection such as redness, swelling, or pus. Do not put powders or lotions on your biopsy site. Self-care: ?? Apply ice on your biopsy site for 15 to 20 minutes every hour or as directed. Use an ice pack, or put crushed ice in a plastic bag. Cover it with a towel before you apply it to your skin. Ice helps prevent tissue damage and decreases swelling and pain. ?? Rest as directed. Do not lift anything heavier than 5 pounds, play sports, or exercise. These activities may cause bleeding. Short walks around the house are okay. Ask your healthcare provider when you can return to your normal activities. ?? Drink plenty of liquids as directed. Liquids help flush contrast liquid from your body. Ask how much liquid to drink each day and which liquids are best for you. Follow up with your healthcare provider as directed: Write down your questions so you remember to ask them during your visits. ?? 2017 [employer] Information is for End User's use only and may not be sold, redistributed or otherwise used for commercial purposes. All illustrations and images included in CareNotes?? are the copyrighted property of [employer]. or [employer]. The above information is an educational programming director only. It is not intended as medical advice for individual conditions or treatments. Talk to your doctor, nurse or pharmacist before following any medical regimen to see if it is safe and effective for you. 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 Singh Soil Conservationist: Dr. 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 ING SOLUTION MAKER ING SOLUTION MAKER documented in this encounter Plan of Treatment Scheduled Procedures Name Priority Associated Diagnoses Date/Ti nh COLONOSCOPY Encounter for screening for colorectal cancer in high risk patient Family history of rectal cancer documented as of this encounter Procedures Procedure Name Priority Date/Time Associated Diagnosis Comments US GUIDED BIOPSY LYMPH NODE SUPERFICIAL LEFT Schedule Routine, Read Routine (OP Routine) 10/07/2021 3:42 PM TANNING SOLUTION MAKER 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) FLOW LEUKEMIA/LYMPHOMA Routine 10/07/2021 3:30 PM TANNING SOLUTION MAKER SURGICAL PATHOLOGY Routine 10/07/2021 3: 29 PM TANNING SOLUTION MAKER 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) documented in this encounter Results * US Guided Biopsy Lymph Node Superficial Left (10/07/2021 3:42 PM TANNING SOLUTION MAKER) Anatomical Region Laterality Modality Entire body N/A Ultrasound 10/07/2021 4:01 PM TANNING SOLUTION MAKER Impressions 10/07/2021 4:01 PM TANNING SOLUTION MAKER 1. Successful ultrasound-guided core needle biopsy of enlarged left axillary lymph node. 2. Please see separate Surgical Pathology results for final interpretation. Electronically signed by: Yola Singh MD Narrative 10/07/2021 4:01 PM TANNING SOLUTION MAKER EXAMINATION: ULTRASOUND-GUIDED CORE BIOPSY HISTORY: ??26 year [...] passes were made with an 18 gauge CorVoluBillt core biopsy needle, 2 cm throw, with [...] Dr. Loja performed the biopsy. Dr. Loja (commercial lending vice president) was present and participated in the procedure. [...] Dr. Loja performed the biopsy. Dr. Loja (commercial lending vice president) was present and participated in the procedure. IMPRESSION: 1. Successful ultrasound-guided core needle biopsy of enlarged left axillary lymph node. 2. Please see separate Surgical Pathology results for final interpretation. Electronically signed by: Yola Singh MD us Anita Gillespie MD IMG US PROCEDURES Final Re sult * Flow Leukemia/Lymphoma Lymph node (10/07/2021 3:30 PM TANNING SOLUTION MAKER) Frazier Stain Test Completed [facility] Leukemia/Lymp josé manuel Result See separate Surgical Pathology report. [facility] Lymph node 10/07/2021 3:30 PM TANNING SOLUTION MAKER 10/07/2021 5:08 PM TANNING SOLUTION MAKER Result [facility] Anita Gillespie MD LAB PATHOLOGY ORDERABLES F inal Result [facility] Department [place] [address] * Surgical pathology (10/07/2021 3:29 PM TANNING SOLUTION MAKER) Tissue (Lymph node, needle biopsy) 10/07/2021 3:29 PM TANNING SOLUTION MAKER Tissue (Lymph node, Including flow cytometry) 10/07/2021 3:30 PM TANNING SOLUTION MAKER Narrative PATHOLOGY [facility] - 10/16/2021 9:54 AM TANNING SOLUTION MAKER EPIC results best viewed via link to PDF [facility] [place] [address] Note to Patients: This report may contain [...] REPORT FINAL WITH ADDENDUM Patient Name: ?? ADI NICHOLS Gender: ??M : ??1995 (Age: 26) Address: ??[address] [place], [place] ??[address] Hospital #: ??[id number] Taken:10/07/2021 Received:10/07/2021 Reported: 10/16/2021 Patient Type: [facility] Ancillary ?? Service: Radiology Location: [facility] Physician(s): ??Stephon Wilkes M.D. Eddie L. Paulk, D.O. Diagnosis: Lymph node, left axilla, core needle biopsy: - ?Follicular hyperplasia, scattered cells with viral inclusions and small non-necrotizing granulomas - ? Immunostain for CMV is positive - ? No increase in EBV-positive cells identified - ? See comment mbr/10/16/2021 09:53 By this signature, I attest that the above diagnosis is based upon my personal examination of the slides(and/or other material indicated in the diagnosis). Iliana Cisneros M.D., Ph.D. Report Electronically Reviewed and Signed Out By ??Iliana Cisneros M.D., Ph.D. 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 In situ hybridization for EBV reveals no increase in EBV-positive cells. Definitive diagnostic features of post-transplant lymphoproliferative disorder are not seen in this sample. Close clinical follow up and correlation with clinical, laboratory, and radiologic findings is needed for full evaluation. Preliminary findings reported to Dr. Gillespie via email on 10/09/2021. The case reviewed by Dr. Mi Weinberg who agrees with the final diagnosis. Microscopic Description and Comment: Microscopic examination reveals cores of lymphoid tissue with largely preserved architecture, with scattered reactive-appearing secondary follicles. There are scattered cells with viral inclusions. Small non-necrotizing granulomas are present. Immunohistochemistry and in situ hybridization studies (with appropriate controls) are performed for further evaluation in tissue context. Immunostains for CD3 and CD20 reveal that FD73-euvrmept B cells are located predominantly in the follicles while CD3-positive T-cells are found predominantly in interfollicular spaces. Secondary follicles are positive to CD10 and BCL-6 and negative for Bcl-2. Immunostain for CD21 highlights follicular dendritic networks associated with follicles. Immunostain for CD30 highlights scattered immunoblasts. Immunostain for CD15 is positive in scattered granulocytes. Immunostain for CMV is positive in scattered cells. In situ hybridization for EBV (performed at the reference laboratory with appropriate controls) reveals only rare EBV-positive cell. Proliferation rate, as assessed by immunostain for Ki-67, is high in secondary follicles and lower (approximately 10-20%) in interfollicular areas. GMS and AFN stains (performed with appropriate controls) reveal no fungal or acid-fats organisms, respectively. Part B (Flow cytometry): Specimen quality: Adequate. Flow cytometry analysis shows the lymphocyte-gated events account for 97% of the overall cellularity of the specimen. The CD19+CD20+ B-cell population comprises 40% of lymphocytes, is polytypic, and displays no significant co-expression of CD5 or CD10. The CD3+ T-cells comprise 58% of lymphocytes and show no significant loss of fortune T-cell antigens. The CD4 to CD8 ratio is within normal limits. No significant population of WF17-nkhnakjt NK cells identified. There is no overt increase in CD38+ plasma cells. The CD45 dim-gated events, and CD34+ events are not increased. ?? A Frazier-Giemsa stained slide from the flow cytometry specimen was examined for internal quality associate purposes. Flow cytometry was performed using antibodies to the following cellular antigens: CD45, CD34, CD19, CD20, Lewis, Lambda, CD10, CD5, CD200, CD38, CD2, CD3, CD4, CD7, CD8, CD56, TCR-GD. Total antigens analyzed: 17 Verito Palomares MD History: The patient is a 26-year-old man presenting 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. ??Procedure: Lymph node needle biopsy. Specimen(s) Received: A: Left axilla B: Left axilla lymph node Gross Description: Received in formalin labeled lt axilla are four white core fragment(s) of soft tissue measuring 0.8-1.2 cm in length each measuring 0.1 cm in diameter. ??Labeled A1 through A2. ??[facility]. [facility]10/07/2021 17:52 PA(s): Sunil Montes De Oca By this signature, I attest that the above diagnosis is based upon my personal examination of the slides(and/or other material). Addenda/Procedures Addendum Ordered: 11/06/2021 Status: Signed Out Addendum Complete: 11/06/2021 By: Iliana Cisneros M.D., Ph.D. Addendum Signed Out: 11/06/2021 ?? Addendum Comment This addendum is to report results of PAX-5 immunostain inadvertently omitted from the original report. PAX-5 immunostain highlights B-cells predominantly located in the follicular structures. The final diagnosis remains unchanged. ?? By this signature, I attest that the above diagnosis is based upon my personal examination of the slides(and/or other material indicated in the diagnosis). ?? Iliana Cisneros M.D., Ph.D. ??Report Electronically Reviewed and Signed Out By ??Iliana Cisneros M.D., Ph.D. ??11/06/2021 11:02:38 ? The performance characteristics of some immunohistochemical stains, fluorescence in-situ hybridization tests and immunophenotyping by flow cytometry cited in this report (if any) were determined by the Surgical Pathology and Flow Cytometry Departments at [facility] as part of an ongoing quality assurance specialist program and in compliance with federally mandated [...] Surgical Pathology and Flow Cytometry Departments of [facility]. ??It has not been cleared or approved by the U. S. Food and Drug Administration. 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) documented in this encounter Administered Medications Inactive Administered Medications - up to 3 most recent administrations Medication Order MAR Action Action Date Dose Rate Site lidocaine (XYLOCAINE) 10 mg/mL (1 %) injection Code/trauma/sedation medication, Starting on Wed10/07/21 at 1515, Intra-Procedure (IR), Indications: Administration of Local AnesthesiaIndications:Administration of Local Anesthesia Given 10/07/2021 3:27 PM TANNING SOLUTION MAKER 3 mL Given 10/07/2021 3:15 PM TANNING SOLUTION MAKER 3 mL Le ft Axilla documented in this encounter Care Teams Lead Instructor/Flight Attendant Relationship Specialty Start Date End Date Guero Colunga DO PCP - General Internal Medicine 03/22/19 04/18/23 Amber Montesinos, SHAILESH Lambskin Trimmer Transplant 11/17/19 Jil Duncan MD Consulting Physician Infectious Diseases 01/10/20 Anita Gillespie MD Medical Oncologist/Java Application Developer Medical Oncology 10/07/20 documented as of this encounter
--- OUTSIDE RECORDS SUMMARY | 2024-10-28 06:16 | XMS_ITS | Encounter Summary ---
Author Organization [facility] Address [address] [place] [address] Phone Care Team Providers Care Rural Service Engineer Name Role Phone Guero Colunga DO Primary Care Provider [phone] Amber Montesinos RN Unavailable [phone] Jil Duncan MD Unavailable [phone] Anita Gillespie MD Unavailable [phone] Encounter Details Date Type Department Care Team (Latest Contact Info) Description 10/13/2021 8:20 AM SKATE HOP Telemedicine [facility] [address] [place] [address] [address] [place] [address] Lisandra Auguste, SECOND OPERATOR [address] [place] [address] Cytomegalovirus (CMV) viremia (CMS/HCC) (HCC) (Primary Dx) Social History Tobacco Use Types Packs/Day Years Used Date Smoking Tobacco: Never Smokeless Tobacco: Current Chew Alcohol Use Standard Drinks/Week Comments Yes 0 (1 standard drink = 0.6 oz pur e alcohol) occassional Sex and Gender Information Value Date Recorded Sex Assigned at Not on file Legal Sex Male 6:28 AM SKATE HOP Gender Identity Not on file Sexual Orientation Straight 08/22/2021 9: 23 AM CDT documented as of this encounter Ordered Prescriptions Prescription Sig Dispense Quantity Refills Last Filled Start Date End Date valGANciclovir (VALCYTE) 450 mg tablet Take 2 tablets (900 mg total) by mouth 2 (two) times a day 120 tablet 10/13/2021 documented in this encounter Progress Notes * Lisandra Auguste, SECOND OPERATOR - 10/13/2021 8:20 AM CST Infectious Disease Return Visit Patient Name: Beka Nichols [facility] INFECTIOUS DISEASES [address] [place] [id number] Subjective Chief complaint of CMV viremia HPI: [...] [place] [address]. He was also noted to have lymphadenopathy [...] Telephone visit completed with patient today. He confirmed that he has been taking valganciclovir 900 mg PO BID and has been tolerating well without adverse effects. He denies any fevers, chills, or night sweats but does report occasional hot flashes. No nausea, vomiting, or diarrhea. Continues to have some generalized lymphadenopathy with most prominent lymph node in left axilla. He plans to go to [facility] on Wednesday for lab draw. ROS: Review of Systems Constitutional: Negative for activity change, appetite change, chills, diaphoresis, fatigue, fever and unexpected weight change. Gastrointestinal: Negative for abdominal pain, constipation, diarrhea, nausea and vomiting. Musculoskeletal: Negative for arthralgias, joint swelling and myalgias. Skin: Negative for rash. Hematological: Positive for adenopathy. Objective Medical Conditions Diagnosis ??? Cytomegalovirus infection (HCC) ??? History of liver transplant (CMS/HCC) (HCC) ??? Idiopathic thrombocytopenic purpura (HCC) ??? 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 Autoimmune hepatitis (CMS/HCC) (HCC) ??? Hypogammaglobulinemia (CMS/HCC) (HCC) ??? 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 Immunocompromised patient (CMS/HCC) (HCC) ??? Lymphadenopathy ??? intermediate current use of immunosuppressive drug ??? Cytomegalovirus (CMV) viremia (CMS/HCC) (HCC) ??? Fever ??? Elevated LFTs ??? On antiviral therapy ??? Myalgia Allergies: Patient has no known allergies. HOME MEDICATIONS : amoxicillin-clavulanate (AUGMENTIN) 875-125 mg per tablet IgG/hyaluronidase,recombinant (HYQVIA SUBQ) letermovir (PREVYMIS) 480 mg tablet tacrolimus (PROGRAF) 0.5 mg immediate-release capsule traZODone (DESYREL) 50 mg tablet ursodioL (ACTIGALL) 300 mg capsule valGANciclovir (VALCYTE) 450 mg tablet valGANciclovir (VALCYTE) 450 mg tablet Lab/Microbiology/Radiology/Diagnostic Review: Laboratory: Lab Results Component Value Date WBC 14.4 (H) 10/01/2021 HGB 14.1 10/01/2021 HCT 41.5 10/01/2021 MCV 97.4 10/01/2021 LABPLAT 205 10/01/2021 Lab Results Component Value Date GLUCOSE 98 10/01/2021 CALCIUM 8.8 10/01/2021 SODIUM 138 10/01/2021 POTASSIUM 4.8 10/01/2021 CO2 26 10/01/2021 CHLORIDE 105 10/01/2021 BUNSER 11 10/01/2021 CREATININE 0.78 (L) 10/01/2021 Estimated Creatinine Clearance: 111.9 mL/min (A) (by C-G formula based on SCr of 0.78 mg/dL (L)). Lab Results Component Value Date ALT 106 (H) 10/01/2021 AST 127 (H) 10/01/2021 ALKPHOS 413 (H) 10/01/2021 BILITOT 1.4 (H) 10/01/2021 Lab Results Component Value Date CRP 17.4 (H) 10/01/2021 Lab Results Component Value Date SEDRATE 9 10/01/2021 Micro: Lab Results Component Value Date MICROBIOLOGY Final Report: No growth 12/25/2019 Imagin10/01/21 CT soft tissue neck with contrast FINDINGS: Postoperative changes of right submandibular lymph [...] are normal. The limited view of the [place] is unremarkable. The visualized portions of the orbits are normal. Mucosal thickening of the paranasal sinuses. Partial opacification of left mastoid air cells. 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 Cervical kyphosis centered at C5. Normal vertebral body heights and intervertebral disc spaces. No significant spinal canal stenosis. Please see same day CT chest report for findings belowthe thoracic inlet. Impression: 1. 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 2. Please see same day CT chest report for findings below the thoracic inlet. 10/01/21 CT abdomen pelvis with contrast FINDINGS: There is partially imaged bulky mediastinal lymphadenopathy, assessed to better advantageon concurrent high-resolution chest CT. Nodular opacities in the lung bases appear improved from 10/02/2020. Anterior cardiophrenic lymph nodes on the right (48.2) appears slightly larger from 2020, the largest of which measures 1.3 x 0.7 cm (52.2), previously 1.1 x 0.6 cm. Postoperative changes from orthotopic liver transplant are again noted. There is diffuse low- attenuation of the liver suggestive of steatosis previously [...] x 1.3 cm (140.2). A bulky left ing uinal lymph node (372.2) 2.4 x 1.4 cm. Spleen surgically absent. The adrenal glands appear normal. Pancreas normal. No suspicious renal lesion or hydronephrosis. Urinary bladder normal. No free air or free fluid. Abdominal aorta normal in caliber. Bowel nonobstructed. No suspicious osseous lesion. T here is near complete osseous fusion of the lower lumbosacral spine. Impression: 1. Previously noted hepatic segment 4B lesion corresponding to chronic inflammation no longer well seen, with no new focal liver lesion. 2. Relatively unchanged extensive abdominopelvic lymphadenopathy. Please refer to separate report from contemporaneous high resolution chest CT for further description of findings in the chest. 10/01/21 CT Chest High Resolution WO Contrast FINDINGS: There is extensive lymphadenopathy in both axilla, supraclavicular regions, mediastinum and upper abdomen. For reference, there is a left axillary lymph node which measures 3.2 cm, previously 1.8 cm (image 77). Similarly, a subcarinal lymph node increased, now measuring 3.6 cm, previously2.9 cm (image 142). Heart size is normal. No pericardial effusion. There are scattered tiny groundglass nodules bilaterally throughout both lungs. Several of the right lower lobe are new. No pleural effusion or pneumothorax. Imaged upper abdominal organs demonstrate changes of liver transplantation. There is lymphadenopathy in the upper abdomen. Impression: 1. Worsening extensive lymphadenopathy throughout the chest, likely worsening post transplant lymphoproliferative disorder. 2. New small scattered groundglass nodules, most pronounced in right lower lobe, likely infectious. Assessment/Plan 26 y.o. 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 Cytomegalovirus (CMV) viremia (CMS/HCC) - Reports doing well on induction dosing [...] denied. He is now working with drug data center operator ([employer]) to receive medication via the patient assistance program. For now, he should continue on Valcyte. - He is scheduled to have labs drawn on Wednesday at [facility]. Recommend weekly CMV level until undetectable and at that point he may be able to decrease Valcyte to maintenance dosing. and fall on Saturdays when he normally has labs drawn and he will have to go 2 weeks without labs.I asked if he could get these drawn during the week but he is unable to do so due to his work di [employer]. Will try to obtain additional supply of Valcyte induction dosing for him to continue on until we can confirm that his CMV level is undetectable. - Discussed with patient the rational for treatment, culture results, risk of recurrent infection, signs/symptoms of recurrent infection, and to contact ID clinic with any questions or concerns Follow up: - Return for Next scheduled follow up. Visit Diagnosis: 1. Cytomegalovirus (CMV) viremia (CMS/HCC) (HCC) Lisandra Ramirez the Nurse Practitioner, have reviewed this patient with the supervising MD present in the office suite, Dr. Duncan. This was a telemedicine visit with Beka Bundyaria dante which took place via TelephoneInability or lack of knowledge to set up audio/visual visit. During the visit, I was located in the office and the patient was located at home in the state of [place]. The patient visit started at 0825 and ended at 0839. My total encounter time on 10/13/2021 was 30 minutes which was spent in [...] visit. Cosigned by Jil Duncan MD at 10/23/2021 12:58 PM SKATE HOP E HOP E HOP documented in this encounter Miscellaneous Notes * Assessment & Plan Note - Lisandra Auguste NP - 10/13/2021 2:24 PM SKATE HOP Associated Problem(s): Cytomegalovirus (CMV) viremia (CMS/HCC) (HCC) - Reports doing well on induction dosing [...] denied. He is now working with drug data center operator ([employer]) to receive medication via the patient assistance program. For now, he should continue on Valcyte. - He is scheduled to have labs drawn on Wednesday at [facility]. Recommend weekly CMV level until undetectable and at that point he may be able to decrease Valcyte to maintenance dosing. [place] and [place] fall on Saturdays when he normally has labs drawn and he will have to go 2 weeks without labs.I asked if he could get these drawn during the week but he is unable to do so due to his work di [employer]. Will try to obtain additional supply of Valcyte induction dosing for him to continue on until we can confirm that his CMV level is undetectable. - Discussed with patient the rational for treatment, culture results, risk of recurrent infection, signs/symptoms of recurrent infection, and to contact ID clinic with any questions or concerns E HOP documented in this encounter Plan of Treatment Scheduled Procedures Name Priority Associated Diagnoses Date/Ti wv COLONOSCOPY Encounter for screening for colorectal cancer in high risk patient Family history of rectal cancer documented as of this encounter Visit Diagnoses Diagnosis 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 documented in this encounter Discontinued Medications Medication Sig Discontinue Reason Start Date End Da te valGANciclovir (VALCYTE) 450 mg tablet Take 2 tablets (900 mg total) by mouth 2 (two) times a day Reorder 10/06/2021 10/13/2021 documented as of this encounter Care Teams Rural Service Engineer Relationship Specialty Start Date End Date Guero Colunga DO PCP - General Internal Medicine 03/22/19 04/18/23 Amber Montesinos RN Project Development Director Transplant 11/17/19 Jil Duncan MD Consulting Physician Infectious Diseases 01/10/20 Anita Gillespie MD Medical Oncologist/Director Paid Media Medical Oncology 10/07/20 documented as of this encounter
--- OUTSIDE RECORDS SUMMARY | 2024-10-28 06:16 | XMS_ITS | Encounter Summary ---
Author Organization [facility] Address [address] [place] [address] Care Team Providers Care Fire And Safety Helper Name Role Phone Guero Colunga Primary Care Provider [phone] Amber Montesinos RN Unavailable [phone] Jil Duncan MD Unavailable [phone] Anita Gillespie MD Unavailable [phone] Encounter Details Date Type Department Care Team (Late st Contact Info) Description 10/02/[address] [facility] Radiology [address] [place] [address] Nirmala Medellin RN Social History Tobacco Use Types Packs/Day Years Used Date Smoking Tobacco: Never Smokeless Tobacco: Current Chew Alcohol Use Standard Drinks/Week Comments Yes 0 (1 standard drink = 0.6 oz pur e alcohol) occassional Sex and Gender Information Value Date Recorded Sex Assigned at Not on file Legal Sex Male 6:28 AM CHALK EXTRUDING 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 Gender Identity Not on file Sexual Orientation Straight 08/22/2021 9: 23 AM CDT documented as of this encounter Miscellaneous Notes * Telephone Encounter - Nirmala Medellin RN - 10/02/2021 12:51 PM CST Referral from Dr. Gillespie for US Guided Biopsy Left Axillary LN Scheduled as requested 10/07/2021 at 1430 with arrival 30 minutes prior to procedure to [facility], 3rd floor Radiology ([address] [facility]) Does NOT need to hold Medications Does NOT need to be NPO Does NOT need a Director Economic Referring office to reach out to patient with all instructions. Referring office aware. K EXTRUDING 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 documented in this encounter Plan of Treatment Scheduled Procedures Name Priority Associated Diagnoses Date/Ti me COLONOSCOPY Encounter for screening for colorectal cancer in high risk patient Family history of rectal cancer documented as of this encounter Visit Diagnoses Not on filedocumented in this encounter Care Teams Fire And Safety Helper Relationship Specialty Start Date End Date Guero Colunga DO PCP - General Internal Medicine 03/22/19 04/18/23 Amber Montesinos RN Passenger Locomotive Engineer Transplant 11/17/19 Jil Duncan MD Consulting Physician Infectious Diseases 01/10/20 Anita Gillespie MD Medical Oncologist/Lemon Picker Medical Oncology 10/07/20 documented as of this encounter
--- OUTSIDE RECORDS SUMMARY | 2024-10-28 06:16 | XMS_ITS | Encounter Summary ---
Author Organization [facility] Address [address] [place] [address] Phone Care Team Providers Care Spray Technician Name Role Phone Guero Colunga DO Primary Care Provider [phone] Amber Montesinos RN Unavailable [phone] Jil Duncan MD Unavailable [phone] Anita Gillespie MD Unavailable [phone] Tabitha Hurley MD Unavailable [phone] Encounter Details Date Type Department Care Team (Late st Contact Info) Description 10/28/2021 Telephone [facility] Infectious Diseases [address] [place] [address] Sherin Porras, [facility] Social History Tobacco Use Types Packs/Day Years Used Date Smoking Tobacco: Never Smokeless Tobacco: Current Chew Alcohol Use Standard Drinks/Week Comments Yes 0 (1 standard drink = 0.6 oz pur e alcohol) occassional Sex and Gender Information Value Date Recorded Sex Assigned at Not on file Legal Sex Male 6:28 AM LOBBY CONCIERGE Gender Identity Not on file Sexual Orientation Straight 08/22/2021 9: 23 AM CDT documented as of this encounter Miscellaneous Notes * Telephone Encounter - Lisandra Auguste NP - 10/30/2021 8:27 AM LOBBY CONCIERGE They have denied the appeal which is why I tried the patient assistance program. I can call them after the holiday for an update. We will also see where his CMV levels are and if they are undetectable we will not need this additional medication. Y CONCIERGE * Telephone Encounter - Leslie Krishna - 10/29/2021 4:14 PM CST This was [facility] regarding where we were at in the appeals process. Y CONCIERGE * Telephone Encounter - Lisandra Auguste NP - 10/29/2021 2:59 PM LOBBY CONCIERGE I sent info to appeal denial for this drug and haven???t heard back. We also applied for patient assistance. Please call them back to see if there is an update. Y CONCIERGE * Telephone Encounter - Leslie Krishna - 10/28/2021 4:06 PM CST Is there anything to do Thanks Leslie Y CONCIERGE * Telephone Encounter - Sherin Porras - 10/28/2021 3:19 PM CST This is regarding his status of his drug called Fredi for concerns, call Ileana at [phone] Y CONCIERGE documented in this encounter Plan of Treatment Scheduled Procedures Name Priority Associated Diagnoses Date/Ti me COLONOSCOPY Encounter for screening for colorectal cancer in high risk patient Family history of rectal cancer documented as of this encounter Visit Diagnoses Not on filedocumented in this encounter Care Teams Spray Technician Relationship Specialty Start Date End Date Guero Colunga DO PCP - General Internal Medicine 03/22/19 04/18/23 Amber Montesinos, SHAILESH Sheet Roller Operator Transplant 11/17/19 Jil Duncan MD Consulting Physician Infectious Diseases 01/10/20 Anita Gillespie MD Medical Oncologist/Gold Frame Assembler Medical Oncology 10/07/20 Tabitha Hurley MD [address] [facility] [address] [place] [address] Consulting Physician Rheumatology 10/22/21 documented as of this encounter
--- OUTSIDE RECORDS SUMMARY | 2024-10-28 06:16 | XMS_ITS | Encounter Summary ---
Author Organization [facility] Address [address] [place] [address] Phone Care Team Providers Care Legal Office Administrator Name Role Phone Guero Colunga DO Primary Care Provider [phone] Amber Montesinos RN Unavailable [phone] Jil Duncan MD Unavailable Anita Gillespie MD Unavailable [phone] Encounter Details Date Type Department Care Team (Late st Contact Info) Description 10/01/2021 8:00 AM CHEF DE FROID Office Visit [facility] [address] [place] [address] [place] [address] Madelaine Martínez NP [address] [place] [address] History of liver transplant (CMS/HCC) (HCC) (Primary Dx) Social History Tobacco Use Types Packs/Day Years Used Date Smoking Tobacco: Never Smokeless Tobacco: Current Chew Alcohol Use Standard Drinks/Week Comments Yes 0 (1 standard drink = 0.6 oz pur e alcohol) occassional Sex and Gender Information Value Date Recorded Sex Assigned at Not on file Legal Sex Male 6:28 AM CHEF DE FROID Gender Identity Not on file Sexual Orientation Straight 08/22/2021 9: 23 AM CDT documented as of this encounter Last Filed Vital Signs Vital Sign Reading Time Taken Comments Blood Pressure 103/68 10/01/2021 7:59 AM CHEF DE FROID Pulse 77 10/01/2021 7:59 AM CHEF DE FROID Temperature 37.1 ??C (98.7 ??F) 10/01/2021 7:59 AM CS T Respiratory Rate - - Oxygen Saturation - - Inhaled Oxygen Concentration - - Weight 56.2 kg (124 lb) 10/01/2021 7:59 AM CHEF DE FROID Height 170.2 cm (5' 7 ) 10/01/2021 7:59 AM CHEF DE FROID Body Mass Index 19.42 10/01/2021 7:59 AM CHEF DE FROID documented in this encounter Patient Instructions * Patient Instructions* Madelaine Martínez NP - 10/01/2021 8:00 AM CHEF DE FROID It was nice to see you in clinic today and I appreciate you putting your trust in my care. If you had any lab tests or imaging studies today that we did not review in clinic, I will be either mailingor calling you with the results within the next two weeks. If you sign up for [employer], I can also post notes to you on that platform. If any further questions arise, please do not hesitate to contact my office with any questions. DE FROID documented in this encounter Progress Notes * Madelaine Martínez NP - 10/01/2021 8:00 AM CST LIVER TRANSPLANT CLINIC VISIT Beka Nichols Age: 26 y.o. Date of : 1995 Reason for Visit: Follow-up liver transplant History of Present Illness: Beka Nichols is a 26 y.o. who is s/p liver transplant 22 years ago on 03/03/1999 for autoimmune hepatitis. 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 He also has has history of persistent CMV viremia for which he was hospitalized and treated with IV ganciclovir yet unable to achieve control of viremia. Antivirals were eventually stopped and he has continued to be monitored. In October 2019, he developed an abscess in his liver and was treated with antibiotic therapy. Lastly, he developed isolated cholestatic liver test abnormalities of uncertain cause. MRI imagingshowed no evidence for ductal dilation and liver biopsy, most recent of which was done on 05/14/2020showed only (non-clonal) sinusoidal T-cell predominant infiltrate and foci of lobular lymphoid aggregates and microgranulomas. He started trial of ursodiol in May and has been tolerated this well. He receives hyqvia SQ (IVIG) for arthralgia, followed by rheumatology Today, patient presents to clinic with his mom. He thinks he has a sinus infection, complaining of congestion and nasal drainage that started Wednesday. No fevers. He is taking Claritin OTC. Liver enzymes from 10/01 are elevated as is WBC. He continues to chew tobacco daily. Current immunosuppression: tacrolimus 0.5 mg twice daily and ursodiol I reviewed patient's active problem list, medication list, allergies, family history, social history, health maintenance. Patient Active Problem List Diagnosis ??? Cytomegalovirus infection (HCC) ??? History of liver transplant (CMS/HCC) (HCC) ??? Idiopathic thrombocytopenic purpura (HCC) ??? 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 Autoimmune hepatitis (CMS/HCC) (HCC) ??? Hypogammaglobulinemia (CMS/HCC) (HCC) ??? 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 Immunocompromised patient (CMS/HCC) (HCC) ??? Lymphadenopathy ??? 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 Cytomegalovirus (CMV) viremia (CMS/HCC) (HCC) ??? Fever ??? Elevated LFTs ??? On antiviral therapy ??? Myalgia Past Medical History: Diagnosis Date ??? CMV [...] BIOPSY LYMPH NODE SUPERFICIAL N/A 05/22/2014 ??? LIVER TRANSPLANT 1999 ??? SPLENECTOMY ??? US ABDOMEN COMPLETE W LIVER DOPPLER (C) Right 10/18/2018 ??? US GUIDED BIOPSY LIVER N/A 10/18/2018 ??? US GUIDED BIOPSY LIVER N/A 05/14/2020 ??? US GUIDED BIOPSY LYMPH NODE SUPERFICIAL LEFT N/A 10/13/2019 Current Outpatient Medications Medication Sig Dispense Refill ??? IgG/hyaluronidase,recombinant (HYQVIA SUBQ) Inject under the skin ??? tacrolimus (PROGRAF) 0.5 mg immediate-release capsule TAKE 1 CAPSULE BY MOUTH TWICE DAILY 60 capsule 11 ??? ursodioL (ACTIGALL) 300 mg capsule Take 2 capsules (600 mg total) by mouth daily with dinner 180 capsule 3 No current facility-administered medications for this visit. Review of Systems: As outlined in HPI; all other systems negative. Objective: Vitals: 10/01/21 0759 BP: 103/68 Pulse: 77 Temp: 37.1 ??C (98.7 ??F) Weight: 56.2 kg (124 lb) Height: 170.2 cm (5' 7 ) General: Well-developed male in NAD. HEENT: NC/AT. PERRL. EOMI. MMM. Congestion noted Neck: Supple. No tenderness, enlargement, JVD or LAD noted. Lungs: CTAB. No wheezing or crackles heard. No respiratory distress. Heart: RRR. +S1, S2. No murmurs or gallops appreciated. Abdomen: Soft. NT/ND. BS active. No organomegaly. Ext/MS: No edema, cyanosis, or erythema. Good muscle strength and tone. Neuro: A&O x3. No focal deficits noted. Psych: Appears to have normal affect, mood, judgement, and insight. Skin: No obvious rashes or lesions noted. Data Review Lab Results Component Value Date WBC 14.4 (H) 10/01/2021 HGB 14.1 10/01/2021 HCT 41.5 10/01/2021 MCV 97.4 10/01/2021 LABPLAT 205 10/01/2021 Lab Results Component Value Date GLUCOSE 98 10/01/2021 CALCIUM 8.8 10/01/2021 SODIUM 138 10/01/2021 POTASSIUM 4.8 10/01/2021 MAGNESIUM 1.7 02/17/2020 CHLORIDE 105 10/01/2021 BUNSER 11 10/01/2021 CREATININE 0.78 (L) 10/01/2021 Lab Results Component Value Date ALT 106 (H) 10/01/2021 AST 127 (H) 10/01/2021 ALKPHOS 413 (H) 10/01/2021 BILITOT 1.4 (H) 10/01/2021 Lab Results Component Value Date INR 1.0 05/14/2020 INR 1.1 02/15/2020 INR 1.0 02/02/2020 Lab Results Component Value Date TACROLIHS 6.2 06/21/2021 TACROLIHS 7.4 02/09/2020 TACROLIHS 5.2 01/06/2020 Lab Results Component Value Date TACROTR 6.8 02/05/2021 Imaging: I reviewed patient's lab results, imaging. Assessment/Plan: History of liver transplant (CMS/HCC) S/p liver transplant 22 years ago in 1998 for AIH. Complicated post-transplant course including EBV-positive PTLD for which he has been treated with chemotherapy. He also developed persistent CMV viremia and did not achieve viremia control despite having received both oral valganciclovirand and IV g anciclovir treatment. Given the concern for resistance with [...] elevated liver tests. MRI imaging showed no evidencefor ductal dilation and liver biopsy, the most recent of which was done on 05/14/2020, showed only a (non-clonal) sinusoidal T-cell predominant infiltrate and foci of lobular lymphoid aggregates and microgranulomas. He was started on ursodiol in May 2020. Liver tests elevated on most recent labs from today and may be due to current sinus infection or virus. He is going to see Dr. Gillespie later today and decide if he needs antibiotics. He will repeat labs once symptoms have resolved and/or completion of antibiotics. If liver numbers remain elevated, he will need imaging and/or liver biopsy for further evaluation. He continues to chew tobacco daily. Encouraged tobacco use cessation. He will return to clinic in 1 year or sooner if needed. ?? #Cancer screening: liver transplant recipients are at increased risk of de shelley cancer. Last dermatology visit was has not been seen, will make appt. Last colonoscopy was: patient 26 y/o, not due at this time. We recommend the following: Skin cancer screening every year. Avoid sun exposure and use high SPF sunscreen daily. Colonoscopy at least every 5 years. No smoking. Follow-up with PCP for routine screening and prevention studies. #Bone health: We recommend DEXA scan every 2-3 years by PCP or sooner if needed. Calcium supplements (2906-3612 mg) are recommended for all liver transplant recipients with (or at risk of) osteopenia. Vitamin D should be checked yearly with a goal serum level of at least 30ng/mL. Patient is to follow-up with primary care provider. #Renal function: Current renal function is stable. Patient to avoid NSAIDs and additional causes ofrenal injury. Will continue to monitor. #Health maintenance: last saw primary care provider within this year, follows-up with PCP closely. Patient should continue to receive treatment for diabetes/hypertension/hyperlipidemia and follow-up routinely with PCP. Lifestyle modifications including healthy diet and exercise were discussed. #Immunizations: Patient did receive the covid vaccine. All live attenuated vaccines are contraindicated. We recommend the influenza vaccine (inactivated) yearly. Madelaine Martínez NP 10/01/2021 9:40 AM My total encounter time on 10/01/2021 was 40 minutes which was spent in the activities documented inthe note. This includes time spent prior to the visit and after the visit in direct care of the patient. This time does not include time spent in any separately reportable services. DE FROID documented in this encounter Miscellaneous Notes * Assessment & Plan Note - Madelaine Martínez NP - 10/01/2021 8:32 AM CHEF DE FROID Associated Problem(s): History of liver transplant (CMS/HCC) (HCC) S/p liver transplant 22 years ago in 1998 for AIH. Complicated post-transplant course including EBV-positive PTLD for which he has been treated with chemotherapy. He also developed persistent CMV viremia and did not achieve viremia control despite having received both oral valganciclovirand and IV g anciclovir treatment. Given the concern for resistance with [...] elevated liver tests. MRI imaging showed no evidencefor ductal dilation. Liver biopsy, the most recent of which was done on 05/14/2020, showed only a (non-clonal) sinusoidal T-cell predominant infiltrate and foci of lobular lymphoid aggregates and microgranulomas. He was started on ursodiol in May 2020. Most recent labs from today show further incre ase in liver numbers as well as elevated [...] 1 year or sooner if needed. ?? DE FROID DE FROID DE FROID DE FROID documented in this encounter Plan of Treatment Scheduled Procedures Name Priority Associated Diagnoses Date/Ti me COLONOSCOPY Encounter for screening for colorectal cancer in high risk patient Family history of rectal cancer documented as of this encounter Visit Diagnoses Diagnosis History of liver transplant (CMS/HCC) (HCC)- Primary Liver replaced by transplant documented in this encounter Care Teams Legal Office Administrator Relationship Specialty Start Date End Date Guero Colunga DO PCP - General Internal Medicine 03/22/19 04/18/23 Amber Montesinos, RN Lead Electrician Transplant 11/17/19 Jil Duncan MD Consulting Physician Infectious Diseases 01/10/20 Anita Gillespie MD Medical Oncologist/Garment Sewing Machine Operator Medical Oncology 10/07/20 documented as of this encounter
--- OUTSIDE RECORDS SUMMARY | 2024-10-28 06:16 | XMS_ITS | Encounter Summary ---
Author Organization [facility] Address [address] [place] [address] Phone Care Team Providers Care Dye Machine Operator Name Role Phone Guero Colunga DO Primary Care Provider [phone] Amber Montesinos RN Unavailable [phone] Jil Duncan MD Unavailable [phone] Anita Gillespie MD Unavailable [phone] Encounter Details Date Type Department Care Team (Late st Contact Info) Description 10/01/2021 7:15 AM JTAC Lab [facility] [address] [facility] 7th [place] [address] [place] [address] 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) Social History Tobacco Use Types Packs/Day Years Used Date Smoking Tobacco: Never Smokeless Tobacco: Current Chew Alcohol Use Standard Drinks/Week Comments Yes 0 (1 standard drink = 0.6 oz pur e alcohol) occassional Sex and Gender Information Value Date Recorded Sex Assigned at Not on file Legal Sex Male 6:28 AM JTAC Gender Identity Not on file Sexual Orientation [...] CYTOMEGALOVIRUS (CMV) DNA, QUANT GEN LAB Routine 10/01/2021 10:04 AM JTAC 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) CRITICAL RESULT CALLBACK CHEMISTRY Routine 10/01/2021 10:04 AM JTAC 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) ALDOLASE Routine 10/01/2021 9:16 AM JTAC ERYTHROCYTE SEDIMENTATION RATE Routine 10/01/2021 9:16 AM JTAC 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) CRP (ACUTE PHASE) Routine 10/01/2021 9:1 6 AM JTAC 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) CREATINE KINASE (CK), TOTAL Routine 10/01/2021 9:16 AM JTAC EGFR Routine 10/01/2021 7:12 AM JTAC 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) DIFFERENTIAL AUTO Routine 10/01/2021 7:1 2 AM JTAC 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) CBC WITH AUTO DIFFERENTIAL Routine 10/01/2021 7:12 AM JTAC 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) TACROLIMUS LEVEL, RANDOM Routine 10/01/2021 7:12 AM JTAC LACTATE DEHYDROGENASE Routine 10/01/2021 7:12 AM JTAC 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) IGG Routine 10/01/2021 7:12 AM JTAC 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) COMPREHENSIVE METABOLIC PANEL Routine 10/01/2021 7:12 AM JTAC 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) documented in this encounter Results * Critical Result Callback Chemistry (10/01/2021 10:04 AM JTAC) Date Notified [id number] [facility] Time Notified 542 [facility] TestName See Comment [facility] Comment:CMV DNA IU/mL Called/Read Back Сергей Sierra [facility] Credentials [facility] Called By cvg [facility] Blood 10/01/2021 10:0 4 AM JTAC 10/01/2021 10:34 AM JTAC us Anita Gillespie MD LAB BLOOD ORDERABLES Final Result Performing Organization Address City/[facility]/ZIP Co de Phone Number [facility] Department [place] [address] * (ABNORMAL) Cytomegalovirus (CMV) DNA PCR, quantitative Blood (10/01/2021 10:04 AM JTAC) CMV DNA Detected( A) [facility] Comment: Interpretive Data: The quantifiable range of this assay is 34 IUnits/mL to 10,000,000 IUnits/mL (1.53 log IUnits/mL to 7.0 log IUnits/mL). Testing was performed by the NIA 6800 CMV Test ([employer] Testing performed at [facility]. Current interpretive data was last revised on 2021. CMV DNA IU/mL 14,600(C) IUnits/mL [facility] CMV DNA log IU/mL 4.16 log IUnits/mL [facility] Blood 10/01/2021 10:0 4 AM JTAC 10/01/2021 10:34 AM JTAC Anita Gillespie MD LAB MICROBIOLOGY - GENERAL ORDERABLES Final Result [facility] Department [place] [address] * Creatine kinase (CK), total (10/01/2021 9:16 AM JTAC) CK 82 40 - 300 Units/L [facility] Blood 10/01/2021 9:16 AM JTAC 10/01/2021 9:59 AM JTAC us Tabitha Hurley MD LAB BLOOD ORDERABLES Final Result Performing Organization Address City/[facility]/ZIP Co de Phone Number [facility] [place] [address] * (ABNORMAL) Aldolase (10/01/2021 9:16 AM JTAC) Aldolase 12.2(H) 0.1 - 8.0 Units/L [facility] Blood 10/01/2021 9:16 AM JTAC 10/01/2021 9:59 AM JTAC us Tabitha Hurley MD LAB BLOOD ORDERABLES Final Result Performing Organization Address [facility] Co de Phone Number [facility] [place] [address] * (ABNORMAL) CRP (acute phase) (10/01/2021 9:16 AM JTAC) Pathologist [facility] CRP 17.4(H) <=10.0 mg/L [facility] Blood 10/01/2021 9:16 AM JTAC 10/01/2021 9:51 AM JTAC us Anita Gillespie MD LAB BLOOD ORDERABLES Final Result Performing Organization Address City/[facility] Co de Phone Number [facility] [place] [address] * Erythrocyte sedimentation rate (10/01/2021 9:16 AM JTAC) Erythrocyte sedimentation rate 9 1 - 15 mm/hr [facility] Blood 10/01/2021 9:16 AM JTAC 10/01/2021 9:52 AM JTAC us Anita Gillespie MD LAB BLOOD ORDERABLES Final Result Performing Organization Address [facility] Co de Phone Number [facility] Department [place] [address] * Tacrolimus level random (10/01/2021 7:12 AM JTAC) Pathologist [facility] Tacrolimus random 7.3 ng/mL [facility] Comment: Interpretive Data Testing performed by liquid chromatography-tandem mass spectrometry. ??Therapeutic concentrations vary depending on type of transplanted organ and time elapsed since transplant. ??Typical trough concentrations range from 5-15 ng/mL. ??This test was developed and its performance characteristics determined by the [facility] consistent with CLIA requirements. ??This test has not been cleared or approved by the [place] Food and Drug administration. ??Current interpretive data last reviewed 2020. Blood 10/01/2021 7:12 AM JTAC 10/01/2021 8:52 AM JTAC us Nancy Butler NP LAB BLOOD ORDERABLES Final Result Performing Organization Address [facility] Co de Phone Number [facility] Department [place] [address] * eGFR (10/01/2021 7:12 AM JTAC) Pathologist [facility] eGFR >90 90 - 130 mL/min/1.7 3 m2 [facility] Comment: Interpretive Data Reference Interval Normal ?>/= 90 mL/min/1.73m2 Mildly decreased* ? 60 - 89 mL/min/1.73m2 Mildly to moderately decreased ?45 - 59 mL/min/1.73m2 Moderately to severely decreased ??30 - 44 mL/min/1.73m2 Severely decreased ?15 - 29 mL/min/1.73m2 Kidney Failure ?< 15 ??mL/min/1.73m2 *Relative to young adult level Estimated glomerular filtration rate is determined by the CKD-EPI equation recommended by the National Kidney Foundation (KDIGO 2012 Clinical Practice Guideline for the Evaluation and Management of Chronic Kidney Disease. Kidney Intnl Suppl Nov 2012;3:1). The CKD-EPI equation should not be used for patients with unstable renal function and has not been validated in children and those over 70. Current interpretive data was last reviewed 2020 Testing performed by: [facility], [address] [place] [phone] Blood 10/01/2021 7:12 AM JTAC 10/01/2021 7:14 AM JTAC Nancy Butler QUICK TECHNICIAN LAB BLOOD ORDERABLES Final Result Performing Organization Address City/State/[facility] Co de Phone Number [facility] Department [place] [address] * (ABNORMAL) Differential, auto (10/01/2021 7:12 AM JTAC) Neutrophil abs 6.2 1.8 - 6.6 K/cumm [facility] Comment:Testing performed by : [facility], [address] [place] [phone] Lymphocyte abs 4.9(H) 1.2 - 3.3 K/cumm [facility] Comment:Testing performed by : [facility], [address] [place] [phone] Monocyte abs 2.7(H) 0.2 - 1.2 K/cumm [facility] Comment:Testing performed by : [facility], [address] [place] [phone] Eosinophil abs 0.6(H) 0.0 - 0.5 K/cumm [facility] Comment:Testing performed by : [facility], [address] [place] [phone] Basophil abs 0.0 0.0 - 0.2 K/cumm [facility] Comment:Testing performed by : [facility], [address] [place] [phone] Neutrophil pct 43.2 % [facility] Comment: Interpretive Data Percent cell count reference ranges are not reported, since discordance with absolute values may lead to misinterpretation of CBC data. Current Interpretive Data was last revised on 2018. Testing performed by: [facility], [address] [place] [phone] Lymphocyte pct 34.0 % [facility] Comment: Interpretive Data Percent cell count reference ranges are not reported, since discordance with absolute values may lead to misinterpretation of CBC data. Current Interpretive Data was last revised on 2018. Testing performed by: [facility], [address] [place] [phone] Monocyte pct 18.7 % [facility] Comment:Testing performed by : [facility], [address] [place] [phone] Eosinophil pct 3.8 % [facility] Comment:Testing performed by : [facility], [address] [place] [phone] Basophil pct 0.3 % [facility] Comment:Testing performed by : [facility], [address] [place] [phone] Blood 10/01/2021 7:12 AM JTAC 10/01/2021 7:14 AM JTAC Nancy Butler NP LAB BLOOD ORDERABLES Final Result [facility] Department [place] [address] * (ABNORMAL) CBC with auto differential (10/01/2021 7:12 AM JTAC) WBC 14.4(H) 3.8 - 9.8 K/cumm [facility] Comment:Testing performed by : [facility], [address] [place] [phone] Hgb 14.1 13.8 - 17.2 g/dL [facility] Comment:Testing performed by : [facility], [address] [place], [place] [phone] Hct 41.5 40.7 - 50.3 % [facility] Comment:Testing performed by : [facility], [address] [place] [address] Plt 205 140 - 440 K/cumm [facility] Comment:Testing performed by : [facility], [address] [place], [place] [phone] MPV 8.1 6.8 - 10.4 fL [facility] Comment:Testing performed by : [facility], [address] [place] [address] RBC 4.27(L) 4.50 - 5.70 M/cumm [facility] Comment:Testing performed by : [facility], [address] [place] [address] MCV 97.4 80.0 - 97.6 fL [facility] Comment:Testing performed by : [facility], [address] [place], [place] [phone] MCH 33.0 26.7 - 33.7 pg [facility] Comment:Testing performed by : [place] [address] MCHC 33.9 32.7 - 35.5 g/dL [facility] Comment:Testing performed by : [place] [phone] RDW CV 15.9(H) 11.8 - 14.6 % [facility] Comment:Testing performed by : [facility], [address] [place], [place] [phone] NRBC abs 0.01 0.00 - 0.01 K/cumm [facility] Comment:Testing performed by : [place] [id number] Blood 10/01/2021 7:12 AM JTAC 10/01/2021 7:14 AM JTAC Nancy Butler QUICK TECHNICIAN LAB BLOOD ORDERABLES Final Result [facility] Department [place] [address] * (ABNORMAL) Comprehensive metabolic panel (10/01/2021 7:12 AM JTAC) Sodium 138 135 - 145 mmol/L [facility] Comment:Testing performed by : [facility], [address] [place] [phone] Potassium, pl 4.8 3.3 - 4.9 mmol/L [facility] Comment:Testing performed by : [facility], [address] [place] [phone] Chloride 105 97 - 110 mmol/L [facility] Comment:Testing performed by : [facility], [address] [place] [phone] CO2 26 22 - 32 mmol/L [facility] Comment:Testing performed by : [facility], [address] [place] [phone] Anion gap 7 2 - 15 mmol/L [facility] Comment:Testing performed by : [facility], [address] [place] [phone] BUN 11 8 - 25 mg/dL [facility] Comment:Testing performed by : [facility], [address] [place] [phone] Creatinine 0.78(L) 0.80 - 1.30 mg/dL [facility] Comment:Testing performed by : [address] [phone] Glucose 98 70 - 199 mg/dL [facility] Comment: Interpretive Data Fasting glucose >/= 126 [...] was last revised 2017. Testing performed by: [facility], [address] [place] [phone] Calcium 8.8 8.5 - 10.3 mg/dL [facility] Comment:Testing performed by : [facility], [address] [place] [phone] Bilirubin, total 1.4(H) 0.1 - 1.2 mg/dL [facility] Comment:Testing performed by : [facility], [address] [place] [phone] Protein, pl 6.0(L) 6.5 - 8.5 g/dL [facility] Comment:Testing performed by : [facility], [address] [place] [phone] Albumin 3.9 3.5 - 5.0 g/dL [facility] Comment:Testing performed by : [facility], [address] [place] [phone] Alk phos 413(H) 40 - 130 Units/L [facility] Comment:Testing performed by : [facility], [address] [place] [phone] ALT 106(H) 7 - 55 Units/L [facility] Comment:Testing performed by : [facility], [address] [place] [phone] AST 127(H) 10 - 50 Units/L [facility] Comment:Testing performed by : [facility], [address] [place] [phone] Blood 10/01/2021 7:12 AM JTAC 10/01/2021 7:14 AM JTAC Nancy Butler NP LAB BLOOD ORDERABLES Final Result [facility] Department [place] [address] * Lactate dehydrogenase (LD) (10/01/2021 7:12 AM JTAC) Lactate dehydrogenase (LDH) 240 100 - 250 Units/L [facility] Comment:Testing performed by : [facility], [address] [place] [phone] Blood 10/01/2021 7:12 AM JTAC 10/01/2021 7:14 AM JTAC us Nancy Butler QUICK TECHNICIAN LAB BLOOD ORDERABLES Final Result Performing Organization Address City/[facility] Co de Phone Number [facility] Department [place] [address] * (ABNORMAL) IgG (10/01/2021 7:12 AM JTAC) Immunoglobulin G 440.0(L) 700.0 - 1,600.0 mg/dL [facility] Blood 10/01/2021 7:12 AM JTAC 10/01/2021 7:52 AM JTAC Nancy Butler QUICK TECHNICIAN LAB BLOOD ORDERABLES Final Result Performing Organization Address [facility] de Phone Number [facility] Department [place] [address] documented in this encounter Visit Diagnoses Diagnosis 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
--- OUTSIDE RECORDS SUMMARY | 2024-10-28 06:16 | XMS_ITS | Encounter Summary ---
Author Organization [facility] Address [address] [place] [address] Phone Care Team Providers Care Rehabilitation Coordinator Name Role Phone Guero Colunga DO Primary Care Provider [phone] Amber Montesinos RN Unavailable [phone] Jil Duncan MD Unavailable [phone] Anita Gillespie MD Unavailable [phone] Encounter Details Date Type Department Care Team (Late st Contact Info) Description 10/18/2021 Orders Only [facility] Gastroenterology [address] [facility] 8th [place] [address] [place] [id number] Theodore Gresham MD [address] [facility] [address] [place] [address] Social History Tobacco Use Types Packs/Day Years Used Date Smoking Tobacco: Never Smokeless Tobacco: Current Chew Alcohol Use Standard Drinks/Week Comments Yes 0 (1 standard drink = 0.6 oz pur e alcohol) occassional Sex and Gender Information Value Date Recorded Sex Assigned at Not on file Legal Sex Male 6:28 AM MEDICAL RECEPTIONIST MEDICAL ASSISTANT Gender Identity Not on file Sexual Orientation Straight 08/22/2021 9: 23 AM CDT documented as of this encounter Miscellaneous Notes * Result Encounter Note - FerryLisandra Petty Niurka, CREW TEAM MEMBER - 10/22/2021 10:57 AM MEDICAL RECEPTIONIST MEDICAL ASSISTANT Thanks Amber. His CMV level is much improved. He won't be able to get labs redrawn until 11/08 as hecan only go on Saturdays and lab will be closed the next 2 Saturdays due to holidays. We are going to keep him on induction dosing of valcyte for now and hopefully be able to decrease dose with next set of labs. CAL RECEPTIONIST MEDICAL ASSISTANT * Result Encounter Note - Madelaine Martínez NP - 10/21/2021 2:49 PM MEDICAL RECEPTIONIST MEDICAL ASSISTANT Bili is increasing. CT a/p showed steatosis. Dr. Osorio - is it worth doing an ultrasound or MRI abd or just continue to monitor as it may be related to CMV? Thanks. CAL RECEPTIONIST MEDICAL ASSISTANT documented in this encounter Plan of Treatment Scheduled Procedures Name Priority Associated Diagnoses Date/Ti me COLONOSCOPY Encounter for screening for colorectal cancer in high risk patient Family history of rectal cancer documented as of this encounter Procedures Procedure Name Priority Date/Time Associated Diagnosis Comments COPY(IES) SENT TO: Routine 10/18/2021 10 :39 AM MEDICAL RECEPTIONIST MEDICAL ASSISTANT CMV DNA QN, PCR Routine 10/18/2021 10:39 AM MEDICAL RECEPTIONIST MEDICAL ASSISTANT TACROLIMUS LEVEL, TROUGH Routine 10/18/2021 10:39 AM MEDICAL RECEPTIONIST MEDICAL ASSISTANT CBC WITH AUTO DIFFERENTIAL Routine 10/18/2021 10:39 AM MEDICAL RECEPTIONIST MEDICAL ASSISTANT GAMMA GT Routine 10/18/2021 10:39 AM MEDICAL RECEPTIONIST MEDICAL ASSISTANT COMPREHENSIVE METABOLIC PANEL Routine 10/18/2021 10:39 AM MEDICAL RECEPTIONIST MEDICAL ASSISTANT documented in this encounter Results * (ABNORMAL) CMV DNA QN, PCR (10/18/2021 10:39 AM MEDICAL RECEPTIONIST MEDICAL ASSISTANT) SOURCE WHOLE BLOOD [facility] CMV DNA qn 4,454(H) IU/mL [facility] CMV DNA log IU/mL 3.65(H) Log IU/mL [facility] Comment: REFERENCE RANGE: NOT DETECTED This test was developed and its analytical performance characteristics have been determined by [facility]. It has not been cleared or approved by the U.S. Food and Drug Administration. This assay has been validated pursuant to the CLIA regulations and is used for clinical purposes. For additional information, please refer to [email or web address]/CMVandEBVPCR (This link is being provided for informational/ educational purposes only.) 10/18/2021 10:3 9 AM MEDICAL RECEPTIONIST MEDICAL ASSISTANT 10/18/2021 10:42 AM MEDICAL RECEPTIONIST MEDICAL ASSISTANT Narrative [facility] - 10/22/2021 7:21 AM MEDICAL RECEPTIONIST MEDICAL ASSISTANT FASTING:YES FASTING: YES Theodore Gresham MD LAB MICROBIOLOGY - GENERAL ORDERABLES Final Result [facility] [address] [place] [address] * Tacrolimus level trough (10/18/2021 10:39 AM MEDICAL RECEPTIONIST MEDICAL ASSISTANT) [facility] Tacrolimus, highly Sensitive, LC/MS/MS 7.8 mcg/L [facility] Comment: No definitive therapeutic or toxic ranges have been established. Optimal blood drug levels are influenced by type of transplant, patient response, time post- transplant, co-administration of other drugs, and drug formulation. The following trough range is a suggested guideline: 5.0-20.0 mcg/L. This test was developed and its analytical performance characteristics have been determined by [facility]. It has not been cleared or approved by the FDA. This assay has been validated pursuant to the CLIA regulations and is used for clinical purposes. 10/18/2021 10:3 9 AM MEDICAL RECEPTIONIST MEDICAL ASSISTANT 10/18/2021 10:42 AM MEDICAL RECEPTIONIST MEDICAL ASSISTANT Narrative [facility] - 10/22/2021 7:21 AM MEDICAL RECEPTIONIST MEDICAL ASSISTANT FASTING:YES FASTING: YES us Theodore Gresham MD LAB BLOOD ORDERABLES Final Result [facility] [address] [address] * (ABNORMAL) Comprehensive metabolic panel (10/18/2021 10:39 AM MEDICAL RECEPTIONIST MEDICAL ASSISTANT) [facility] Glucose 85 65 - 99 mg/dL [facility] Comment: ? Fasting reference interval BUN 10 7 - 25 mg/dL [facility] Creatinine 0.76 0.60 - 1.35 mg/dL [facility] eGFR NON-AFR. MONTENEGRIN 124 > OR = 60 mL/min/1. 73m2 [facility] EGFR 144 > OR = 60 mL/min/1. 73m2 [facility] BUN/creat ratio NOT APPLICABLE 6 - 22 (calc) [facility] Sodium 144 135 - 146 mmol/L [facility] Potassium, pl 4.5 3.5 - 5.3 mmol/L [facility] Chloride 109 98 - 110 mmol/L [facility] CO2 30 20 - 32 mmol/L [facility] Calcium 9.0 8.6 - 10.3 mg/dL [facility] Protein, sr 5.5(L) 6.1 - 8.1 g/dL [facility] Albumin 4.0 3.6 - 5.1 g/dL [facility] GLOBULIN 1.5(L) 1.9 - 3.7 g/dL (calc) [facility] Alb/glob ratio 2.7(H) 1.0 - 2.5 (calc) [facility] Bilirubin, total 1.7(H) 0.2 - 1.2 mg/dL [facility] Alk phos 309(H) 36 - 130 U/L [facility] AST 121(H) 10 - 40 U/L [facility] ALT (SGPT) 107(H) 9 - 46 U/L [facility] 10/18/2021 10:3 9 AM MEDICAL RECEPTIONIST MEDICAL ASSISTANT 10/18/2021 10:42 AM MEDICAL RECEPTIONIST MEDICAL ASSISTANT Narrative [facility] - 10/22/2021 7:21 AM MEDICAL RECEPTIONIST MEDICAL ASSISTANT FASTING:YES FASTING: YES us Theodore Gresham MD LAB BLOOD ORDERABLES Final Result Performing Organization Address [facility]/ZIP Co de Phone Number [facility] [address] [place] [address] * (ABNORMAL) Gamma GT (10/18/2021 10:39 AM MEDICAL RECEPTIONIST MEDICAL ASSISTANT) GGT 192(H) 3 - 70 U/L [facility] 10/18/2021 10:3 9 AM MEDICAL RECEPTIONIST MEDICAL ASSISTANT 10/18/2021 10:42 AM MEDICAL RECEPTIONIST MEDICAL ASSISTANT Narrative [facility] - 10/22/2021 7:21 AM MEDICAL RECEPTIONIST MEDICAL ASSISTANT FASTING:YES FASTING: YES us Theodore Gresham MD LAB BLOOD ORDERABLES Final Result Performing Organization Address [facility] Co de Phone Number [facility] [address] [place] [address] * (ABNORMAL) CBC with auto differential (10/18/2021 10:39 AM MEDICAL RECEPTIONIST MEDICAL ASSISTANT) WBC 10.1 3.8 - 10.8 Thousand/u L [facility] RBC, POC 4.23 4.20 - 5.80 Million/uL [facility] Hgb 13.6 13.2 - 17.1 g/dL [facility] Hct 39.7 38.5 - 50.0 % [facility] MCV 93.9 80.0 - 100.0 fL [facility] MCH 32.2 27.0 - 33.0 pg [facility] MCHC 34.3 32.0 - 36.0 g/dL [facility] Rdw 14.1 11.0 - 15.0 % [facility] Platelets 206 140 - 400 Thousand/u L [facility] MPV 11.7 7.5 - 12.5 fL [facility] Neutrophils, abs 2,858 1,500 - 7,800 cells/uL [facility] Lymphocytes, abs 5,171(H) 850 - 3,900 cells/uL [facility] Monocyte abs 869 200 - 950 cells/uL [facility] Eosinophils, abs 1,111(H) 15 - 500 cells/uL [facility] Basophils, abs 91 0 - 200 cells/uL [facility] Neutrophils 28.3 % [facility] Lymphocyte pct 51.2 % [facility] Monocytes 8.6 % [facility] Eosinophils 11.0 % [facility] Basophils 0.9 % [facility] 10/18/2021 10:3 9 AM MEDICAL RECEPTIONIST MEDICAL ASSISTANT 10/18/2021 10:42 AM MEDICAL RECEPTIONIST MEDICAL ASSISTANT Narrative [facility] - 10/22/2021 7:21 AM MEDICAL RECEPTIONIST MEDICAL ASSISTANT FASTING:YES FASTING: YES Theodore Gresham MD LAB BLOOD ORDERABLES Final Result [facility] [address] [place] [address] * COPY(IES) SENT TO: (10/18/2021 10:39 AM MEDICAL RECEPTIONIST MEDICAL ASSISTANT) COPY(IES) SENT TO: [facility] Comment: ?[facility] - COPY TO ACCT ?[address] [facility] [place] [address] 10/18/2021 10:3 9 AM MEDICAL RECEPTIONIST MEDICAL ASSISTANT 10/18/2021 10:42 AM MEDICAL RECEPTIONIST MEDICAL ASSISTANT Narrative [facility] - 10/22/2021 7:21 AM MEDICAL RECEPTIONIST MEDICAL ASSISTANT FASTING:YES FASTING: YES us Theodore Gresham MD LAB BLOOD ORDERABLES Final Result [facility] documented in this encounter Visit Diagnoses Not on filedocumented in this encounter Care Teams Rehabilitation Coordinator Relationship Specialty Start Date End Date Guero Colunga DO PCP - General Internal Medicine 03/22/19 04/18/23 Amber Montesinos RN Wood Heel Flap Trimmer Transplant 11/17/19 Jil Duncan MD Consulting Physician Infectious Diseases 01/10/20 Anita Gillespie MD Medical Oncologist/Portfolio Lead Medical Oncology 10/07/20 documented as of this encounter
--- OUTSIDE RECORDS SUMMARY | 2024-10-28 06:16 | XMS_ITS | Encounter Summary ---
Author Organization [facility] Address [address] [place] [address] Phone Care Team Providers Care Geothermal Field Technician Name Role Phone Guero Colunga DO Primary Care Provider [phone] Amber Montesinos RN Unavailable [phone] Jil Duncan MD Unavailable [phone] Anita Gillespie MD Unavailable [phone] Encounter Details Date Type Department Care Team (Late st Contact Info) Description 09/30/2021 Telephone [facility] Pulmonary [address] [facility] 8th [place] [address] [place] [address] Moni Sue Social History Tobacco Use Types Packs/Day Years Used Date Smoking Tobacco: Never Smokeless Tobacco: Current Chew Alcohol Use Standard Drinks/Week Comments Yes 0 (1 standard drink = 0.6 oz pur e alcohol) occassional Sex and Gender Information Value Date Recorded Sex Assigned at Not on file Legal Sex Male 6:28 AM ORANGE PICKING SUPERVISOR Gender Identity Not on file Sexual Orientation Straight 08/22/2021 9: 23 AM CDT documented as of this encounter Miscellaneous Notes * Telephone Encounter - Moni Sue - 09/30/2021 10:24 AM CST I called patient in response to a portal message about him having a sinus infection and potentiallybeing unable to do PFTs tomorrow. I spoke to patient's mother. She said he has productive cough of yellow sputum. He has joint pain and R eye being blood shot/swollen. She said that he is already seeing Dr. Hoang tomorrow, who normally prescribes medications for said symtpoms so they are only reaching out to us to ask if it would be ok to reschedule PFTs or if MD Bailon prefers that they try them tomorrow. MD Bailon said it was ok to reschedule. I sent a message to the hub to cancel tomorrow and reschedule. Patient's mother notified. GE PICKING SUPERVISOR documented in this encounter Plan of Treatment Scheduled Procedures Name Priority Associated Diagnoses Date/Ti me COLONOSCOPY Encounter for screening for colorectal cancer in high risk patient Family history of rectal cancer documented as of this encounter Visit Diagnoses Not on filedocumented in this encounter Care Teams Geothermal Field Technician Relationship Specialty Start Date End Date Guero Colunga DO PCP - General Internal Medicine 03/22/19 04/18/23 Amber Montesinos, RN Clinical Nurse Educator Transplant 11/17/19 Jil Duncan MD Consulting Physician Infectious Diseases 01/10/20 Anita Gillespie MD Medical Oncologist/Route Vending Machine Servicer Medical Oncology 10/07/20 documented as of this encounter
--- OUTSIDE RECORDS SUMMARY | 2024-10-28 06:16 | XMS_ITS | Encounter Summary ---
Author Organization [facility] Address [address] [place] [address] Phone Care Team Providers Care Director Translation Name Role Phone Cristine Guero Primary Care Provider [phone] Amber Montesinos RN Unavailable [phone] Jil Duncan MD Unavailable [phone] Anita Gillespie MD Unavailable [phone] Tabitha Hurley MD Unavailable [phone] Encounter Details Date Type Department Care Team (Late st Contact Info) Description 10/28/2021 Orders Only [facility] Oncology [address] [facility] 7th [place] [address] [place] [address] Samreen Greene RN Social History Tobacco Use Types Packs/Day Years Used Date Smoking Tobacco: Never Smokeless Tobacco: Current Chew Alcohol Use Standard Drinks/Week Comments Yes 0 (1 standard drink = 0.6 oz pur e alcohol) occassional Sex and Gender Information Value Date Recorded Sex Assigned at Not on file Legal Sex Male 6:28 AM CROP NUTRITION SCIENTIST Gender Identity Not on file Sexual Orientation Straight 08/22/2021 9: 23 AM CDT documented as of this encounter Ordered Prescriptions Prescription Sig Dispense Quantity Refills Last Filled Start Date End Date levoFLOXacin (LEVAQUIN) 750 mg tablet Take 1 tablet (750 mg total) by mouth daily for 4 days 4 tablet 10/28/2021 11/01/2021 documented in this encounter Plan of Treatment Scheduled Procedures Name Priority Associated Diagnoses Date/Ti me COLONOSCOPY Encounter for screening for colorectal cancer in high risk patient Family history of rectal cancer documented as of this encounter Visit Diagnoses Not on filedocumented in this encounter Care Teams Director Translation Relationship Specialty Start Date End Date Guero Colunga DO PCP - General Internal Medicine 03/22/19 04/18/23 Amber Montesinos, RN Tornado Chaser Transplant 11/17/19 Jil Duncan MD Consulting Physician Infectious Diseases 01/10/20 Anita Gillespie MD Medical Oncologist/Pick Up Medical Oncology 10/07/20 Tabitha Hurley MD [address] [facility] [address] [place] [address] Consulting Physician Rheumatology 10/22/21 documented as of this encounter
--- OUTSIDE RECORDS SUMMARY | 2024-10-28 06:16 | XMS_ITS | Encounter Summary ---
Author Organization [facility] Address [address] [place] [address] Phone Care Team Providers Care Test And Balance Engineer Name Role Phone Guero Colunga DO Primary Care Provider [phone] Amber Montesinos RN Unavailable [phone] Jil Duncan MD Unavailable [phone] Anita Gillespie MD Unavailable [phone] Tabitha Hurley MD Unavailable [phone] Encounter Details Date Type Department Care Team (Late st Contact Info) Description 11/08/2021 Orders Only [facility] Gastroenterology [address] [place] [address] [place] [address] Theodore Gresham MD [address] [place] [address] Social History Tobacco Use Types Packs/Day Years Used Date Smoking Tobacco: Never Smokeless Tobacco: Current Chew Alcohol Use Standard Drinks/Week Comments Yes 0 (1 standard drink = 0.6 oz pur e alcohol) occassional Sex and Gender Information Value Date Recorded Sex Assigned at Not on file Legal Sex Male 6:28 AM ANIMAL HUSBANDRY WORKER Gender Identity Not on file Sexual Orientation Straight 08/22/2021 9: 23 AM CDT documented as of this encounter Plan of Treatment Scheduled Procedures Name Priority Associated Diagnoses Date/Ti me COLONOSCOPY Encounter for screening for colorectal cancer in high risk patient Family history of rectal cancer documented as of this encounter Procedures Procedure Name Priority Date/Time Associated Diagnosis Comments COPY(IES) SENT TO: Routine 11/08/2021 8: 33 AM ANIMAL HUSBANDRY WORKER CMV DNA QN, PCR Routine 11/08/2021 8:33 AM ANIMAL HUSBANDRY WORKER TACROLIMUS LEVEL, TROUGH Routine 11/08/2021 8:33 AM ANIMAL HUSBANDRY WORKER CBC WITH AUTO DIFFERENTIAL Routine 11/08/2021 8:33 AM ANIMAL HUSBANDRY WORKER GAMMA GT Routine 11/08/2021 8:33 AM ANIMAL HUSBANDRY WORKER BILIRUBIN, DIRECT Routine 11/08/2021 8:3 3 AM ANIMAL HUSBANDRY WORKER COMPREHENSIVE METABOLIC PANEL Routine 11/08/2021 8:33 AM ANIMAL HUSBANDRY WORKER documented in this encounter Results * (ABNORMAL) CMV DNA QN, PCR (11/08/2021 8:33 AM ANIMAL HUSBANDRY WORKER) SOURCE WHOLE BLOOD [facility] CMV DNA qn 3,397(H) IU/mL [facility] CMV DNA log IU/mL 3.53(H) Log IU/mL [facility] Comment: REFERENCE RANGE: NOT DETECTED This test was developed and its analytical performance characteristics have been determined by [facility]. It has not been cleared or approved by the U.S. Food and Drug Administration. This assay has been validated pursuant to the CLIA regulations and is used for clinical purposes. For additional information, please refer to [email or web address]/[email or web address] (This link is being provided for informational/ educational purposes only.) 11/08/2021 8:33 AM ANIMAL HUSBANDRY WORKER 11/08/2021 8:34 AM ANIMAL HUSBANDRY WORKER Narrative [facility] - 11/13/2021 12:52 AM ANIMAL HUSBANDRY WORKER VARIFIED THIS IS THE CORRECT ORDER TODAY FASTING:YES FASTING: YES us Theodore Gresham MD LAB MICROBIOLOGY - GENERAL ORDERABLES Final Result [facility] [address] [facility], [facility] [address] * (ABNORMAL) Comprehensive metabolic panel (11/08/2021 8:33 AM ANIMAL HUSBANDRY WORKER) Pathologist [facility] Glucose 90 65 - 99 mg/dL [facility] Comment: ? Fasting reference interval BUN 14 7 - 25 mg/dL [facility] Creatinine 0.72 0.60 - 1.35 mg/dL [facility] eGFR NON-AFR. PAKISTANI 127 > OR = 60 mL/min/1. 73m2 [facility] EGFR 147 > OR = 60 mL/min/1. 73m2 [facility] BUN/creat ratio NOT APPLICABLE 6 - 22 (calc) [facility] Sodium 142 135 - 146 mmol/L [facility] Potassium, pl 4.8 3.5 - 5.3 mmol/L [facility] Chloride 108 98 - 110 mmol/L [facility] CO2 26 20 - 32 mmol/L [facility] Calcium 9.5 8.6 - 10.3 mg/dL [facility] Protein, sr 5.5(L) 6.1 - 8.1 g/dL [facility] Albumin 4.0 3.6 - 5.1 g/dL [facility] GLOBULIN 1.5(L) 1.9 - 3.7 g/dL (calc) [facility] Alb/glob ratio 2.7(H) 1.0 - 2.5 (calc) [facility] Bilirubin, total 1.5(H) 0.2 - 1.2 mg/dL [facility] Alk phos 271(H) 36 - 130 U/L [facility] AST 68(H) 10 - 40 U/L [facility] ALT (SGPT) 56(H) 9 - 46 U/L [facility] 11/08/2021 8:33 AM ANIMAL HUSBANDRY WORKER 11/08/2021 8:34 AM ANIMAL HUSBANDRY WORKER Narrative [facility] - 11/13/2021 12:52 AM ANIMAL HUSBANDRY WORKER VARIFIED THIS IS THE CORRECT ORDER TODAY FASTING:YES FASTING: YES us Theodore Gresham MD LAB BLOOD ORDERABLES Final Result Performing Organization Address [facility] de Phone Number [facility] [address] [place] [address] * (ABNORMAL) Gamma GT (11/08/2021 8:33 AM ANIMAL HUSBANDRY WORKER) GGT 152(H) 3 - 70 U/L [facility] 11/08/2021 8:33 AM ANIMAL HUSBANDRY WORKER 11/08/2021 8:34 AM ANIMAL HUSBANDRY WORKER Narrative [facility] - 11/13/2021 12:52 AM ANIMAL HUSBANDRY WORKER VARIFIED THIS IS THE CORRECT ORDER TODAY FASTING:YES FASTING: YES us Theodore Gresham MD LAB BLOOD ORDERABLES Final Result Performing Organization Address [place] Phone Number [facility] [address] [place] [address] * (ABNORMAL) Bilirubin, direct (11/08/2021 8:33 AM ANIMAL HUSBANDRY WORKER) Bilirubin, direct 0.6(H) < OR = 0.2 mg/dL [facility] 11/08/2021 8:33 AM ANIMAL HUSBANDRY WORKER 11/08/2021 8:34 AM ANIMAL HUSBANDRY WORKER Narrative [facility] - 11/13/2021 12:52 AM ANIMAL HUSBANDRY WORKER VARIFIED THIS IS THE CORRECT ORDER TODAY FASTING:YES FASTING: YES us Theodore Gresham MD LAB BLOOD ORDERABLES Final Result Performing Organization Address [facility] de Phone Number [facility] [address] [place] [address] * Tacrolimus level trough (11/08/2021 8:33 AM ANIMAL HUSBANDRY WORKER) Pathologist [facility] Tacrolimus, highly Sensitive, LC/MS/MS 6.5 mcg/L [facility] Comment: No definitive therapeutic or toxic ranges have been established. Optimal blood drug levels are influenced by type of transplant, patient response, time post- transplant, co-administration of other drugs, and drug formulation. The following trough range is a suggested guideline: 5.0-20.0 mcg/L. This test was developed and its analytical performance characteristics have been determined by [facility]. It has not been cleared or approved by the FDA. This assay has been validated pursuant to the CLIA regulations and is used for clinical purposes. 11/08/2021 8:33 AM ANIMAL HUSBANDRY WORKER 11/08/2021 8:34 AM ANIMAL HUSBANDRY WORKER Narrative [facility] - 11/13/2021 12:52 AM ANIMAL HUSBANDRY WORKER VARIFIED THIS IS THE CORRECT ORDER TODAY FASTING:YES FASTING: YES Theodore Gresham MD LAB BLOOD ORDERABLES Final Result [facility] [address] [place] [address] * (ABNORMAL) CBC with auto differential (11/08/2021 8:33 AM ANIMAL HUSBANDRY WORKER) Pathologist [facility] WBC 9.6 3.8 - 10.8 Thousand/u L [facility] RBC, POC 4.12(L) 4.20 - 5.80 Million/uL [facility] Hgb 13.7 13.2 - 17.1 g/dL [facility] Hct 38.9 38.5 - 50.0 % [facility] MCV 94.4 80.0 - 100.0 fL [facility] MCH 33.3(H) 27.0 - 33.0 pg [facility] MCHC 35.2 32.0 - 36.0 g/dL [facility] Rdw 14.4 11.0 - 15.0 % [facility] Platelets 315 140 - 400 Thousand/u L [facility] MPV 10.6 7.5 - 12.5 fL [facility] Neutrophils, abs 5,040 1,500 - 7,800 cells/uL [facility] Lymphocytes, abs 3,571 850 - 3,900 cells/uL [facility] Monocyte abs 864 200 - 950 cells/uL [facility] Eosinophils, abs 29 15 - 500 cells/uL [facility] Basophils, abs 96 0 - 200 cells/uL [facility] Neutrophils 52.5 % [facility] Lymphocyte pct 37.2 % [facility] Monocytes 9.0 % [facility] Eosinophils 0.3 % [facility] Basophils 1.0 % [facility] 11/08/2021 8:33 AM ANIMAL HUSBANDRY WORKER 11/08/2021 8:34 AM ANIMAL HUSBANDRY WORKER Narrative [facility] - 11/13/2021 12:52 AM ANIMAL HUSBANDRY WORKER VARIFIED THIS IS THE CORRECT ORDER TODAY FASTING:YES FASTING: YES Theodore Gresham MD LAB BLOOD ORDERABLES Final Result Performing Organization Address [facility] Co de Phone Number [facility] [address] [place] [address] * COPY(IES) SENT TO: (11/08/2021 8:33 AM ANIMAL HUSBANDRY WORKER) COPY(IES) SENT TO: [facility] Comment: ?[facility] - COPY TO ACCT ?[address] [facility] [address] ?[place] [address] 11/08/2021 8:33 AM ANIMAL HUSBANDRY WORKER 11/08/2021 8:34 AM ANIMAL HUSBANDRY WORKER Narrative [facility] - 11/13/2021 12:52 AM ANIMAL HUSBANDRY WORKER VARIFIED THIS IS THE CORRECT ORDER TODAY FASTING:YES FASTING: YES Theodore Gresham MD LAB BLOOD ORDERABLES Final Result [facility] documented in this encounter Visit Diagnoses Not on filedocumented in this encounter Care Teams Test And Balance Engineer Relationship Specialty Start Date End Date Guero Colunga DO PCP - General Internal Medicine 03/22/19 04/18/23 Amber Montesinos, SHAILESH Photogrammetry Airplane Pilot Transplant 11/17/19 Jil Duncan MD Consulting Physician Infectious Diseases 01/10/20 Anita Gillespie MD Medical Oncologist/Shipping Processor Medical Oncology 10/07/20 Tabitha Hurley MD [address] [facility] [address] [facility] [address] [place] [address] Consulting Physician Rheumatology 10/22/21 documented as of this encounter
--- OUTSIDE RECORDS SUMMARY | 2024-10-28 06:16 | XMS_ITS | Encounter Summary ---
Author Organization [facility] Address [address] [place] [address] Phone Care Team Providers Care Dry Cans Back Tender Name Role Phone Guero Colunga DO Primary Care Provider [phone] Amber Montesinos RN Unavailable [phone] Jil Duncan MD Unavailable Anita Gillespie MD Unavailable [phone] Encounter Details Date Type Department Care Team (Late st Contact Info) Description 10/06/2021 Telephone [facility] Infectious Diseases [address] [place] [address] [address] [place] [address] Lisandra Auguste, FIELD MACHINIST [address] [place] [address] Social History Tobacco Use Types Packs/Day Years Used Date Smoking Tobacco: Never Smokeless Tobacco: Current Chew Alcohol Use Standard Drinks/Week Comments Yes 0 (1 standard drink = 0.6 oz pur e alcohol) occassional Sex and Gender Information Value Date Recorded Sex Assigned at Not on file Legal Sex Male 6:28 AM ACCOUNTANT HELPER Gender Identity Not on file Sexual Orientation Straight 08/22/2021 9: 23 AM CDT documented as of this encounter Ordered Prescriptions Prescription Sig Dispense Quantity Refills Last Filled Start Date End Date letermovir (PREVYMIS) 480 mg tablet Take 1 tablet (480 mg total) by mouth daily 30 tablet 10/06/2021 2 valGANciclovir (VALCYTE) 450 mg tablet Take 2 tablets (900 mg total) by mouth 2 (two) times a day 120 tablet 10/06/2021 1 documented in this encounter Miscellaneous Notes * Telephone Encounter - Lisandra Auguste NP - 10/06/2021 12:38 PM ACCOUNTANT HELPER Yes he needs weekly labs for now to check CMV level. I'm fine with him going to [facility] if he wants as long as he stays with that lab so we can better trend his CMV levels. UNTANT HELPER * Telephone Encounter - Amber Vargas RN - 10/06/2021 12:32 PM ACCOUNTANT HELPER Thanks Lisandra! Happy to update his standing orders. I believe Dr. Duncan had mentioned getting labsdone weekly? Let me know if that is not the case. Otherwise, I will update standing orders to be done weekly. I believe he goes to [facility] locally. I can see if he would be open to coming to the [facility]. 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 Discussed withDr. Duncan and will start him on valganciclovir 900 mg PO BID and letermovir 480 mg PO daily for atleast 4 weeks. He needs CMV resistance testing drawn prior to starting medications which he will have drawn at [facility] tomorrow afternoon when he is on campus for liver biopsy. I spoke this morning with his mother, Brooklynn, to discuss plan. He will have labs drawn tomorrow then immediately start both antiviral medications. He will need weekly CMV levels drawn, will discuss with transplant team to add onto routine labs. He should follow up with ID in 4 weeks. She verbalized understanding and will contact ID clinic with any issues. UNTANT HELPER documented in this encounter Plan of Treatment Scheduled Procedures Name Priority Associated Diagnoses Date/Ti me COLONOSCOPY Encounter for screening for colorectal cancer in high risk patient Family history of rectal cancer documented as of this encounter Results * CMV mutation detection Blood (10/07/2021 2:10 PM ACCOUNTANT HELPER) Report Final Report: For additional result information, see attached scanned report. [facility] Blood 10/07/2021 2:10 PM ACCOUNTANT HELPER 10/07/2021 2:27 PM ACCOUNTANT HELPER Narrative [facility] - 10/14/2021 12:38 PM ACCOUNTANT HELPER Testing performed by: [facility], [place] [address]. us Lisandra Auguste FIELD MACHINIST LAB MICROBIOLOGY - GENERA L ORDERABLES Final Result [facility] Department [place] [address] documented in this encounter Visit Diagnoses Diagnosis Cytomegalovirus infection, unspecified cytomegaloviral infection type (HCC)- Primary Cytomegalovirus infection, unspecified cytomegaloviral infection type (HCC) documented in this encounter Care Teams Dry Cans Back Tender Relationship Specialty Start Date End Date Guero Colunga DO PCP - General Internal Medicine 03/22/19 04/18/23 Amber Montesinos, SHAILESH Chronograph Operator Transplant 11/17/19 Jil Duncan MD Consulting Physician Infectious Diseases 01/10/20 Anita Gillespie MD Medical Oncologist/Multi Disciplined Language Analyst Medical Oncology 10/07/20 documented as of this encounter
--- OUTSIDE RECORDS SUMMARY | 2024-10-28 06:16 | XMS_ITS | Encounter Summary ---
Author Organization [facility] Address [address] [place] [address] Phone Care Team Providers Care Aircraft Cleaning Supervisor Name Role Phone Guero Colunga DO Primary Care Provider [phone] Amber Montesinos RN Unavailable [phone] Jil Duncan MD Unavailable [phone] Anita Gillespie MD Unavailable [phone] Encounter Details Date Type Department Care Team (Late st Contact Info) Description 10/07/2021 Telephone [facility] Infectious Diseases [address] [place] [address] Tosha Knott Social History Tobacco Use Types Packs/Day Years Used Date Smoking Tobacco: Never Smokeless Tobacco: Current Chew Alcohol Use Standard Drinks/Week Comments Yes 0 (1 standard drink = 0.6 oz pur e alcohol) occassional Sex and Gender Information Value Date Recorded Sex Assigned at Not on file Legal Sex Male 6:28 AM IT PROGRAM AUDITOR Gender Identity Not on file Sexual Orientation Straight 08/22/2021 9: 23 AM CDT documented as of this encounter Miscellaneous Notes * Telephone Encounter - Lisandra Auguste NP - 10/07/2021 3:27 PM IT PROGRAM AUDITOR Valganciclovir and letermovir initially denied by insurance for CMV treatment. Prior authorization completed for Valganciclovir today which was approved for dose of 900 mg PO BID x 30 days (reference# [id number]). Letermovir also denied by insurance. I faxed appeal letter and pertinent medical notes along with labs to insurance company for urgent review. Patient has CMV resistance testing drawn today. He should be able to fill Valganciclovir and should start this at induction dose while we await decision on letermovir. PROGRAM AUDITOR * Telephone Encounter - Ny Griffin - 10/07/2021 11:42 AM CST Lisandra aware, will follow up PROGRAM AUDITOR * Telephone Encounter - Ny Griffin - 10/07/2021 11:40 AM CST Was denied, will need a peer to peer to probably get approved. PROGRAM AUDITOR * Telephone Encounter - Tosha Knott - 10/07/2021 11:21 AM CST Jenniffer Murillo spec, , wanting to know status on [place], for the Prevymis 480mg tabs. [facility] [place] [place]. PROGRAM AUDITOR documented in this encounter Plan of Treatment Scheduled Procedures Name Priority Associated Diagnoses Date/Ti me COLONOSCOPY Encounter for screening for colorectal cancer in high risk patient Family history of rectal cancer documented as of this encounter Visit Diagnoses Not on filedocumented in this encounter Care Teams Aircraft Cleaning Supervisor Relationship Specialty Start Date End Date Guero Colunga DO PCP - General Internal Medicine 03/22/19 04/18/23 Amber Montesinos RN Inclusion Internship Transplant 11/17/19 Jil Duncan MD Consulting Physician Infectious Diseases 01/10/20 Anita Gillespie MD Medical Oncologist/Online Education Manager Medical Oncology 10/07/20 documented as of this encounter
--- OUTSIDE RECORDS SUMMARY | 2024-10-28 06:16 | XMS_ITS | Encounter Summary ---
Author Organization [facility] Address [address] [place] [address] Phone Care Team Providers Care Market Research Analyst Name Role Phone Guero Colunga DO Primary Care Provider [phone] Amber Montesinos RN Unavailable [phone] Jil Duncan MD Unavailable [phone] Anita Gillespie MD Unavailable [phone] Tabitha Hurley MD Unavailable [phone] Encounter Details Date Type Department Care Team (Late st Contact Info) Description 11/12/2021 7:15 AM WAX POT TENDER Lab [facility] Oncology [address] [facility] 7th [place] [address] [place] [address] 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) Social History Tobacco Use Types Packs/Day Years Used Date Smoking Tobacco: Never Smokeless Tobacco: Current Chew Alcohol Use Standard Drinks/Week Comments Yes 0 (1 standard drink = 0.6 oz pur e alcohol) occassional Sex and Gender Information Value Date Recorded Sex Assigned at Not on file Legal Sex Male 6:28 AM WAX POT TENDER Gender Identity Not on file Sexual Orientation Straight 08/22/2021 9: 23 AM CDT documented as of this encounter Plan of Treatment Scheduled Procedures Name Priority Associated Diagnoses Date/Ti me COLONOSCOPY Encounter for screening for colorectal cancer in high risk patient Family history of rectal cancer documented as of this encounter Procedures Procedure Name Priority Date/Time Associated Diagnosis Comments EGFR Routine 11/12/2021 7:10 AM WAX POT TENDER 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) DIFFERENTIAL AUTO Routine 11/12/2021 7:1 0 AM WAX POT TENDER 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 73 [...] was last reviewed 2021. Testing performed by: [facility], [address] [place] [phone] Blood 11/12/2021 7:10 AM WAX POT TENDER 11/12/2021 7:11 AM WAX POT TENDER us Anita Gillespie MD LAB BLOOD ORDERABLES Final Result [facility] Department [place] [address] * Differential, auto (11/12/2021 7:10 AM WAX POT TENDER) Neutrophil abs 2.6 1.8 - 6.6 K/cumm [facility] Comment:Testing performed by : [facility], [address] [place] [phone] Lymphocyte abs 2.9 1.2 - 3.3 K/cumm [facility] Comment:Testing performed by : [facility], [address] [place] [phone] Monocyte abs 0.8 0.2 - 1.2 K/cumm [facility] Comment:Testing performed by : [facility], [address] [place] [phone] Eosinophil abs 0.0 0.0 - 0.5 K/cumm [facility] Comment:Testing performed by : [facility], [address] [place] [phone] Basophil abs 0.1 0.0 - 0.2 K/cumm [facility] Comment:Testing performed by : [facility], [address] [place] [phone] Neutrophil pct 40.8 % [facility] Comment: Interpretive Data Percent cell count reference ranges are not reported, since discordance with absolute values may lead to misinterpretation of CBC data. Current Interpretive Data was last revised on 2018. Testing performed by: [facility], [address] [place] [phone] Lymphocyte pct 45.3 % [facility] Comment: Interpretive Data Percent cell count reference ranges are not reported, since discordance with absolute values may lead to misinterpretation of CBC data. Current Interpretive Data was last revised on 2018. Testing performed by: [facility], [address] [place] [phone] Monocyte pct 12.4 % [facility] Comment:Testing performed by : [facility], [address] [place] [phone] Eosinophil pct 0.7 % [facility] Comment:Testing performed by : [facility], [address] [place] [phone] Basophil pct 0.8 % [facility] Comment:Testing performed by : [facility], [address] [place] [phone] Blood 11/12/2021 7:10 AM WAX POT TENDER 11/12/2021 7:11 AM WAX POT TENDER Anita Gillespie MD LAB BLOOD ORDERABLES Final Result Performing Organization Address City/State/[facility] Co de Phone Number [facility] Department [place] [address] * (ABNORMAL) CBC with auto differential (11/12/2021 7:10 AM WAX POT TENDER) WBC 6.5 3.8 - 9.8 K/cumm [facility] Comment:Testing performed by : [facility], [address] [place] [phone] Hgb 12.4(L) 13.8 - 17.2 g/dL [facility] Comment:Testing performed by : [facility], [address] [place] [phone] Hct 36.2(L) 40.7 - 50.3 % [facility] Comment:Testing performed by : [facility], [address] [place] [phone] Plt 165 140 - 440 K/cumm [facility] Comment:Testing performed by : [facility], [address] [place] [phone] MPV 8.3 6.8 - 10.4 fL [facility] Comment:Testing performed by : [facility], [address] [place], [place] [phone] RBC 3.64(L) 4.50 - 5.70 M/cumm [facility] Comment:Testing performed by : [facility], [address] [place], [place] [phone] MCV 99.5(H) 80.0 - 97.6 fL [facility] Comment:Testing performed by : [facility], [address] [place], [place] [phone] MCH 34.1(H) 26.7 - 33.7 pg [facility] Comment:Testing performed by : [facility], [address] [place], [place] [phone] MCHC 34.3 32.7 - 35.5 g/dL [facility] Comment:Testing performed by : [facility], [address] [place] [phone] RDW CV 15.7(H) 11.8 - 14.6 % [facility] Comment:Testing performed by : [facility], [address] [place] [phone] NRBC abs 0.00 0.00 - 0.01 K/cumm [facility] Comment:Testing performed by : [facility], [address] [place] [phone] Blood 11/12/2021 7:10 AM WAX POT TENDER 11/12/2021 7:11 AM WAX POT TENDER us Anita Gillespie MD LAB BLOOD ORDERABLES Final Result [facility] [place] [address] * (ABNORMAL) Comprehensive metabolic panel (11/12/2021 7:10 AM WAX POT TENDER) Sodium 143 135 - 145 mmol/L [facility] Comment:Testing performed by : [facility], [address] [place] [phone] Potassium, pl 3.9 3.3 - 4.9 mmol/L [facility] Comment:Testing performed by : [facility], [address] [place] [phone] Chloride 113(H) 97 - 110 mmol/L [facility] Comment:Testing performed by : [facility], [address] [place] [phone] CO2 23 22 - 32 mmol/L [facility] Comment:Testing performed by : [facility], [address] [place] [phone] Anion gap 7 2 - 15 mmol/L [facility] Comment:Testing performed by : [facility], [address] [place] [phone] BUN 13 8 - 25 mg/dL [facility] Comment:Testing performed by : [facility], [address] [place] [phone] Creatinine 0.87 0.80 - 1.30 mg/dL [facility] Comment:Testing performed by : [facility], [address] [place] [phone] Glucose 74 70 - 199 mg/dL [facility]ER [...] was last revised 2017. Testing performed by: [facility], [address] [place] [phone] Calcium 8.7 8.5 - 10.3 mg/dL [facility] Comment:Testing performed by : [facility], [address] [place] [phone] Bilirubin, total 1.1 0.1 - 1.2 mg/dL [facility] Comment:Testing performed by : [facility], [address] [place] [phone] Protein, pl 6.0(L) 6.5 - 8.5 g/dL [facility] Comment:Testing performed by : [facility], [address] [place] [phone] Albumin 3.8 3.5 - 5.0 g/dL [facility] Comment:Testing performed by : [facility], [address] [place] [phone] Alk phos 309(H) 40 - 130 Units/L [facility] Comment:Testing performed by : [facility], [address] [place] [phone] ALT 55 7 - 55 Units/L [facility] Comment:Testing performed by : [facility], [address] [place] [phone] AST 73(H) 10 - 50 Units/L [facility] Comment:Testing performed by : [facility], [address] [place] [phone] Blood 11/12/2021 7:10 AM WAX POT TENDER 11/12/2021 7:11 AM WAX POT TENDER us Anita Gillespie MD LAB BLOOD ORDERABLES Final Result Performing Organization Address [facility] Co de Phone Number [facility] Department [place] [address] * Lactate dehydrogenase (LD) (11/12/2021 7:10 AM WAX POT TENDER) Lactate dehydrogenase (LDH) 205 100 - 250 Units/L [facility] Comment:Testing performed by : [facility], [address] [place] [phone] Blood 11/12/2021 7:10 AM WAX POT TENDER 11/12/2021 7:11 AM WAX POT TENDER us Anita Gillespie MD LAB BLOOD ORDERABLES Final Result Performing Organization Address City/[facility]/ZIP Co de Phone Number [facility] Department [place] [address] * IgG (11/12/2021 7:10 AM WAX POT TENDER) Immunoglobulin G 739.0 700.0 - 1,600.0 mg/dL [facility] Blood 11/12/2021 7:10 AM WAX POT TENDER 11/12/2021 7:46 AM WAX POT TENDER us Anita Gillespie MD LAB BLOOD ORDERABLES Final Result [facility] Department [place] [address] documented in this encounter Visit Diagnoses Diagnosis 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) documented in this encounter Orders Appointment Requests Count Last Ordered Date Fi rst Ordered Date ONCBCN LAB APPOINTMENT 1 11/12/2021 documented in this encounter Care Teams Market Research Analyst Relationship Specialty Start Date End Date Guero Colunga DO PCP - General Internal Medicine 03/22/19 04/18/23 Amber Montesinos, SHAILESH Capacity Management Specialist Transplant 11/17/19 Jil Duncan MD Consulting Physician Infectious Diseases 01/10/20 Anita Gillespie MD Medical Oncologist/Boomswing Operator Medical Oncology 10/07/20 Tabitha Hurley MD [address] [facility] [address] [place] [address] Consulting Physician Rheumatology 10/22/21 documented as of this encounter
--- OUTSIDE RECORDS SUMMARY | 2024-10-28 06:16 | XMS_ITS | Encounter Summary ---
Author Organization [facility] Address [address] [place] [address] Phone Care Team Providers Care Renderer Name Role Phone Guero Colunga DO Primary Care Provider [phone] Amber Montesinos RN Unavailable [phone] Jil Duncan MD Unavailable [phone] Anita Gillespie MD Unavailable [phone] Encounter Details Date Type Department Care Team (Late st Contact Info) Description 10/03/2021 Telephone [facility] Oncology [address] [facility] 7th [place] [address] [place] [address] Samreen Greene RN Social History Tobacco Use Types Packs/Day Years Used Date Smoking Tobacco: Never Smokeless Tobacco: Current Chew Alcohol Use Standard Drinks/Week Comments Yes 0 (1 standard drink = 0.6 oz pur e alcohol) occassional Sex and Gender Information Value Date Recorded Sex Assigned at Not on file Legal Sex Male 6:28 AM PERSONNEL 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 Gender Identity Not on file Sexual Orientation Straight 08/22/2021 9: 23 AM CDT documented as of this encounter Ordered Prescriptions Prescription Sig Dispense Quantity Refills Last Filled Start Date End Date traZODone (DESYREL) 50 mg tablet Take 1 tablet (50 mg total) by mouth nightly 30 tablet 10/03/2021 01/10/202 2 documented in this encounter Miscellaneous Notes * Telephone Encounter - Samreen Greene RN - 10/03/2021 9:41 AM PERSONNEL 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 Discussed that we have been communicating between our teams to determine the best course for Justingiven his impressive physical exam findings, sinus infection, and high CMV results. They shared that they think the most change in how he is overall feeling occurred with holding the IVIG. He did notfeel extreme aches, but did start to have this set in. In addition, he felt more drained and noticethe infections worsening. They could not recall the last time he took valgancyclovir, but did not think stopping this had an affect on how he is feeling. They were thinking it was as early as early this year that they were last on this. They shared he is already feeling better this morning after sta rting his antibiotics. He is not willing to be admitted for further work-up and is open to trying oral medications to help treat the elevated CMV. Will discuss further with the teams and update theirfamily ZAHRA. ONNEL 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 documented in this encounter Plan of Treatment Scheduled Procedures Name Priority Associated Diagnoses Date/Ti me COLONOSCOPY Encounter for screening for colorectal cancer in high risk patient Family history of rectal cancer documented as of this encounter Visit Diagnoses Not on filedocumented in this encounter Care Teams Renderer Relationship Specialty Start Date End Date Guero Colunga DO PCP - General Internal Medicine 03/22/19 04/18/23 Amber Montesinos, SHAILESH Senior Site Manager Transplant 11/17/19 Jil Duncan MD Consulting Physician Infectious Diseases 01/10/20 Anita Gillespie MD Medical Oncologist/Traffic Expert Medical Oncology 10/07/20 documented as of this encounter
--- OUTSIDE RECORDS SUMMARY | 2024-10-28 06:17 | XMS_ITS | Encounter Summary ---
Author Organization [facility] Address [address] [place] [address] Phone Care Team Providers Care Vice President Pharmacy Name Role Phone Guero Colunga DO Primary Care Provider [phone] Amber Montesinos RN Unavailable [phone] Jil Duncan MD Unavailable [phone] Anita Gillespie MD Unavailable [phone] Reason for Visit * Consultation (Routine) - Closed Specialty Diagnoses / Procedures Referred By Contac t Referred To Contact Rheumatology Diagnoses Autoimmune disease (CMS/HCC) (HCC) Jan Bailon MD [address] [place] [address] Phone: tel: fax: [facility] (All Locations) Referral ID Status Reason Start Date Expiration Date V isits Requested Visits Authorized [id number] Closed Specialty Services Required 05/07/2021 03/15/2022 99 99 Encounter Details Date Type Department Care Team (Late st Contact Info) Description 05/07/2021 11:00 AM CDT Office Visit [facility] Rheumatology [address] [facility] [facility] [address] 5th [place] [address] [place] [address] Tabitha Hurley MD [address] [place] [address] Arthralgia, unspecified joint (Primary Dx); ss-a52kD; Abnormal positron emission tomography (PET) scan Social History Tobacco Use Types Packs/Day Years Used Date Smoking Tobacco: Never Smokeless Tobacco: Current Chew Alcohol Use Standard Drinks/Week Comments Yes 0 (1 standard drink = 0.6 oz pur e alcohol) occassional Sex and Gender Information Value Date Recorded Sex Assigned at Not on file 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 Gender Identity Not on file Sexual Orientation Straight 08/22/2021 9: 23 AM CDT documented as of this encounter Last Filed Vital Signs Vital Sign Reading Time Taken Comments Blood Pressure 95/61 05/07/2021 10:06 AM CDT Pulse 66 05/07/2021 10:06 AM CDT Temperature 36.5 ??C (97.7 ??F) 05/07/2021 10:06 AM C DT Respiratory Rate - - Oxygen Saturation - - Inhaled Oxygen Concentration - - Weight 55.3 kg (122 lb) 05/07/2021 10:06 AM CDT Height 172.7 cm (5' 8 ) 05/07/2021 10:06 AM CDT Body Mass Index 18.55 05/07/2021 10:06 AM CDT documented in this encounter Patient Instructions * Patient Instructions* Tabitha Hurley MD - 05/07/2021 11:00 AM CDT There was no muscle or joint disease but IVIG may be masking No signs/ symptoms of sjogren's syndrome Will repeat labs today and see if the SSA 52Kd is still positive F/u in 2 months documented in this encounter Progress Notes * Tabitha Hurley MD - 05/07/2021 11:00 AM CDT Subjective/Objective Patient ID: Adi Nichols is a 26 y.o.[place]. Initial consultation for arthralgias and + SSA-52 Kd Adi has h/o autoimmune hepatitis diagnosed 1998; s/p liver transplant 1998 on prograf. 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 He had pain in his knees and shoulders and hands He did not have joint swelling He had joint stiffness in AM and with inactivity. He was seen by neurology and EMG/ NC which was normal. He did see pulmonary as there was some spots on the lungs He started hyqvia SQ monthly injections in 09/2020 and the joint pains got better. On reviewing the chart in 09/2020 mom called that Adi was having a hard time walking, lifting his arms, opening jars. The concern for muscle disease/ myositis was raised especially as a paraneoplastic process. He was evaluated by Dr Mendes in neuromuscular and was noted to have joint tendernessshoulders and knees but not much muscle weakness. The myositis panel revealed SS-A52kD + but other myositis specific/ associated antibodies were negative. He was started on IVIG at that time for possible myositis with improvement in his joint pains. He has a rash on his chest and back which comes and goes depending on how hot it is; per mom when he sweats he gets the rash. He denies facial rashes or photosensitivity He denies oral or nasal ulcers or sicca complaints. He denies muscle weakness or pain. He denies hair loss, fevers, fatigue or loss of appetite. Got covid vaccine J&J 02/08/2021 Review of Systems Constitutional: Negative for activity change, chills, diaphoresis, fatigue, fever and unexpected weight change. HENT: Negative for congestion, drooling, facial swelling, mouth sores, postnasal drip, sinus pressure, sinus pain, sore throat and trouble swallowing. No oral or nasal ulcers No sicca complaints Eyes: Negative for photophobia, pain, redness, itching and visual disturbance. Respiratory: Negative for cough, chest tightness, shortness of breath, wheezing and stridor. Cardiovascular: Negative for chest pain. Gastrointestinal: Negative for abdominal pain, blood in stool, constipation, diarrhea, nausea and vomiting. Endocrine: Negative for heat intolerance. Genitourinary: Negative for genital sores and hematuria. Musculoskeletal: Positive for arthralgias. Negative for back pain, gait problem, joint swelling, myalgias, neck pain and neck stiffness. Skin: Negative for color change, pallor and rash. Neurological: Negative for seizures, syncope, weakness (no muscle weakness now), light-headedness, numbness and headaches. Hematological: Negative for adenopathy. Psychiatric/Behavioral: Negative for decreased concentration, dysphoric mood, sleep disturbance andsuicidal ideas. The patient is not nervous/anxious. Past Medical History: Diagnosis Date ??? CMV (cytomegalovirus infection) (CMS/HCC) ??? Community acquired pneumonia of right middle [...] Conv) ??? PNA (pneumonia) ??? Pulmonary emboli (CMS/HCC) Current Outpatient Medications Medication Sig Dispense Refill ??? IgG/hyaluronidase,recombinant (HYQVIA SUBQ) Inject under the skin ??? tacrolimus (PROGRAF) 0.5 mg capsule Take 1 capsule (0.5 mg total) by mouth 2 (two) times a day 60 capsule 11 No current facility-administered medications for this visit. Family History Problem Relation Age of Onset [...] ??? Drug use: Not Currently Vitals BP 95/61 Pulse 66 Temp 36.5 ??C (97.7 ??F) Ht 172.7 cm (5' 8 ) Wt 55.3 kg (122 lb) BMI 18.55 kg/m?? Physical Exam Vitals reviewed. Constitutional: General: He is not in acute distress. Appearance: Normal appearance. He is well-developed. He is not diaphoretic. HENT: Head: Normocephalic and atraumatic. Mouth/Throat: Mouth: Mucous membranes are moist. Pharynx: Oropharynx is clear. No oropharyngeal exudate or posterior oropharyngeal erythema. Eyes: General: No scleral icterus. Right eye: No discharge. Left eye: No discharge. Extraocular Movements: Extraocular movements intact. Conjunctiva/sclera: Conjunctivae normal. Pupils: Pupils are equal, round, and reactive to light. Neck: Thyroid: No thyromegaly. Cardiovascular: Rate and Rhythm: Normal rate. Pulmonary: Effort: Pulmonary effort is normal. Musculoskeletal: General: No swelling, tenderness (T0S0 FROM no deformities, muscles 5/5 strength, normal bulk), deformity or signs of injury. Cervical back: Normal range of motion and neck supple. Right lower leg: No edema. Left lower leg: No edema. Lymphadenopathy: Cervical: No cervical adenopathy. Skin: General: Skin is warm and dry. Capillary Refill: Capillary refill takes less than 2 seconds. Findings: No erythema or rash (no rashes: no heliotrope, gottron's, V sign, shawl sign, no malar rash). Neurological: General: No focal deficit present. Mental Status: He is alert and oriented to person, place, and time. Motor: No weakness or abnormal muscle tone. Coordination: Coordination normal. Gait: Gait normal. Psychiatric: Mood and Affect: Mood normal. Behavior: Behavior normal. Thought Content: Thought content normal. Judgment: Judgment normal. Ref. Range 01/17/2021 16:21 JOY-1 ab Latest Ref Range: <20 Units <20 EJ* Latest Ref Range: Negative Negative Ku Latest Ref Range: Negative Negative Mi-2 antibodies* Latest Ref Range: Negative Negative OJ Latest Ref Range: Negative Negative PL-12 Latest Ref Range: Negative Negative PL-7 Latest Ref Range: Negative Negative SRP AUTOABS Latest Ref Range: Negative Negative Anti U1RNP ab Latest Ref Range: <20 Units <20 MDA-5 P140 ab Latest Ref Range: <20 Units <20 NXP-2 P140 ab Latest Ref Range: <20 Units <20 P155/140 ab Latest Ref Range: <20 Units <20 Polymyositis PM-SCL ab Latest Ref Range: <20 Units <20 SSA52 KD ab IgG Latest Ref Range: <20 Units 23 (H) ANCA Unknown Negative Anti U2 SN DIRECTOR OF PRODUCT MARKETING ab Latest Ref Range: Negative Negative Fibrillarin U3 ab Latest Ref Range: Negative Negative Results for ADI NICHOLS ( ) as of 05/07/2021 11:22 Ref. Range 09/16/2020 11:37 Immunoglobulin G Latest Ref Range: 700.0 - 1,600.0 mg/dL <300.0 (L) Immunoglobulin A Latest Ref Range: 70.0 - 400.0 mg/dL <50.0 (L) Immunoglobulin M Latest Ref Range: 40.0 - 230.0 mg/dL <25.0 (L) CRP Latest Ref Range: <=10.0 mg/L 15.7 (H) Rheumatoid factor, quant Latest Ref Range: 0.1 - 15.0 IUnits/mL <10.0 Erythrocyte sedimentation rate Latest Ref Range: 1 - 15 mm/hr 1 KEISHA Unknown Negative Anti-GEOVANNI ag Latest Ref Range: Negative Negative Ref. Range 05/07/2021 08:23 05/07/2021 08:23 Sodium Latest Ref Range: 135 - 145 mmol/L 141 Potassium, pl Latest Ref Range: 3.3 - 4.9 mmol/L 4.3 Chloride Latest Ref Range: 97 - 110 mmol/L 105 CO2 Latest Ref Range: 22 - 32 mmol/L 31 Anion gap Latest Ref Range: 2 - 15 mmol/L 5 BUN Latest Ref Range: 8 - 25 mg/dL 8 Creatinine Latest Ref Range: 0.80 - 1.30 mg/dL 0.77 (L) Glucose Latest Ref Range: 70 - 199 mg/dL 87 Calcium Latest Ref Range: 8.5 - 10.3 mg/dL 9.4 Bilirubin, total Latest Ref Range: 0.1 - 1.2 mg/dL 0.9 Protein, pl Latest Ref Range: 6.5 - 8.5 g/dL 7.2 Albumin Latest Ref Range: 3.5 - 5.0 g/dL 4.2 Alk phos Latest Ref Range: 40 - 130 Units/L 451 (H) AST Latest Ref Range: 10 - 50 Units/L 84 (H) ALT Latest Ref Range: 7 - 55 Units/L 77 (H) Lactate dehydrogenase (LDH) Latest Ref Range: 100 - 250 Units/L 247 WBC Latest Ref Range: 3.8 - 9.8 K/cumm 7.8 Hgb Latest Ref Range: 13.8 - 17.2 g/dL 14.8 Hct Latest Ref Range: 40.7 - 50.3 % 44.2 Plt Latest Ref Range: 140 - 440 K/cumm 206 MPV Latest Ref Range: 6.8 - 10.4 fL 8.6 RBC Latest Ref Range: 4.50 - 5.70 M/cumm 4.42 (L) MCV Latest Ref Range: 80.0 - 97.6 fL 100.0 (H) MCH Latest Ref Range: 26.7 - 33.7 pg 33.5 MCHC Latest Ref Range: 32.7 - 35.5 g/dL 33.6 RDW CV Latest Ref Range: 11.8 - 14.6 % 14.2 NRBC abs Latest Ref Range: 0.00 - 0.01 K/cumm 0.00 Neutrophil abs Latest Ref Range: 1.8 - 6.6 K/cumm 3.0 Lymphocyte abs Latest Ref Range: 1.2 - 3.3 K/cumm 2.8 Monocyte abs Latest Ref Range: 0.2 - 1.2 K/cumm 1.6 (H) Eosinophil abs Latest Ref Range: 0.0 - 0.5 K/cumm 0.4 Basophil abs Latest Ref Range: 0.0 - 0.2 K/cumm 0.0 Neutrophil pct Latest Units: % 37.9 Lymphocyte pct Latest Units: % 36.2 Monocyte pct Latest Units: % 20.2 Eosinophil pct Latest Units: % 5.3 Basophil pct Latest Units: % 0.4 Immunoglobulin G Latest Ref Range: 700.0 - 1,600.0 mg/dL 1,295.0 Results for ADI NICHOLS ( ) as of 05/07/2021 11:22 Ref. Range 06/12/2020 07:50 09/16/2020 11:37 10/02/2020 07:26 Aldolase Latest Ref Range: 0.1 - 8.0 Units/L 11.8 (H) Alk phos Latest Ref Range: 40 - 130 Units/L 394 (H) 583 (H) 501 (H) CK Latest Ref Range: 40 - 300 Units/L 43 Free T4 Latest Ref Range: 0.90 - 1.70 ng/dL 1.40 1.25 Lactate dehydrogenase (LDH) Latest Ref Range: 100 - 250 Units/L 225 302 (H) TSH Latest Ref Range: 0.30 - 4.20 mcIUnit/mL 5.42 (H) Narrative & Impression EXAMINATION: TUMOR FDG-PET/CT IMAGING ?? DATE OF STUDY: 10/02/2020 ?? SCANNER: P4T ?? RADIOPHARMACEUTICAL: 11.53 mCi F-18 Fluorodeoxyglucose (FDG) i.v. Injection site: Right antecubital. ?? 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 Suspected recurrence with new onset weakness and soreness in arms, shoulders, and knees. The study is requested for detection of suspected recurrence. ?? Subsequent treatment strategy. ?? TECHNIQUE: The patient's fasting blood glucose level, measured by glucometer before injection of FDG, was 89 mg/dL. MD-Gastroview was not given orally. After intravenous administration of FDG, noncontrast CT images were obtained for attenuation correction and for fusion with emission PET images to allow for anatomical localization of PET findings. Emission PET images were then obtained. The study was interpreted on the [employer] workstation. The mean liver SUV (reported for quality assurance supervisor body purposes) is 1.5. ?? The total scanned area was skull vertex to the knees. Images of the body were obtained starting 83 minutes after injection of tracer. ?? COMPARISON: Comparison is made to a prior PET/CT dated 10/12/2019. ?? FINDINGS: Redemonstrated is highly FDG-avid diffuse lymphadenopathy both above and below the hemidiaphragm with involvement of bilateral cervical, supraclavicular, axillary and subpectoral, mediastinal, mesenteric, retroperitoneal, iliac, and inguinal lymphadenopathy. The overall distribution of hypermetabolic adenopathy has not significantly changed; however, some lymph nodes increased in size, while others are stable or improved. ?? Above the hemidiaphragm, bilateral cervical and axillary lymphadenopathy are larger. For reference, a left axillary lymph node measuring 3.8 x 2.0 cm (image 140) has max SUV 13.1, previously 2.0 x 1.5 cm with max SUV 11.4. ?? Mediastinal lymphadenopathy is stable. For reference a 3.7 x 3.3 cm subcarinal lymph node (image 161) is max SUV 9.5, previously 4.0 x 2.8 cm with max SUV 11.8. ?? A right anterior costophrenic angle lymph node is improved. This measures 9 mm (image 187) with max SUV 2.2, previously 2.0 cm with max SUV 9.2. ?? Below the hemidiaphragm, retroperitoneal lymphadenopathy is mildly larger. For reference, a left retroperitoneal lymph node measuring 3.3 x 1.5 cm (image 225) has max SUV 24.8, previously 2.3 x 1.3 cm with max SUV 8.9. ?? Inguinal lymph nodes are stable to slightly improved. For reference, a 2.8 x 1.5 cm left inguinal lymph node (image 321) has max SUV 9.9, previously 2.5 x 1.2 cm with max SUV 12.7. A right inguinal lymph node measuring 1.7 x 1.2 cm (image 319) has max SUV 6.5, previously 1.6 x 1.3 cm with max SUV 9.3. ?? The previously seen peripheral FDG avid airspace opacity within the right upper lobe has resolved. ?? There is mild diffuse uptake within the knees and shoulders in a periarticular distribution. There is mildly increased uptake at the right greater trochanter, which may present an insertional enthesopathy. Diffuse uptake within the bone marrow is improved. ?? Additional CT findings: There is mucosal thickening within the maxillary sinuses. There are postsurgical changes of orthotopic liver transplantation. The gallbladder is surgically absent. Contrast material from the patient's same day body CT is present within the renal collecting systems, ureters, and urinary bladder. ?? IMPRESSION: 1. Markedly hypermetabolic lymphadenopathy both above and below the hemidiaphragm is not significantly changed in overall distribution from the prior study dated 10/12/2019. While some of the lymph nodes are increased in size and/or FDG avidity, others are stable or slightly improved. This could reflect overall stable disease versus progression of a smoldering inflammatory process or lymphoma. 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 ?? 2. Mildly increased uptake about the knees and shoulders in a periarticular distribution may be seen in the setting of arthritis. ?? 3. Interval resolution of the previously seen FDG avid airspace opacity within the right upper lobe. Assessment: The primary encounter diagnosis was Arthralgia, unspecified joint. Diagnoses of ss-a52kD and Abnormal positron emission tomography (PET) scan were also pertinent to this visit. Adi has a very complicated history. He had autoimmune hepatitis in 1998, ITP in 1999, nonhodgkin's lymphoma in 2016 then inflammatory liver infiltrates with micrgranulomas in 2019. He developed joint pains in summer 2019 and was started on IVIG end of 2019 which has helped resolve the joint pains. I am not sure of the rationale to use IVIG (unclear underlying etiology) but he did feel better so he has continued. He now comes to rheumatology with + [id number] antibodies. He does not have joint pains, joint swelling, rashes, fevers, sicca complaints, muscle weakness, muscle pains or other symptoms as may be seen in lupus, sjogrens, vasculitis, dermatomyositis I would recommend stopping IVIG and reassessing him. I will also recheck the SSA antibodies I spent a total of 60 minutes in care of the patient today including pre- and post-work, examination, counseling and/or coordination of care as documented within the note on 05/07/2021 Plan: Patient Instructions There was no muscle or joint disease but IVIG may be masking No signs/ symptoms of sjogren's syndrome Will repeat labs today and see if the SSA 52Kd is still positive F/u in 2 months No orders of the defined types were placed in this encounter. documented in this encounter Plan of Treatment Scheduled Procedures Name Priority Associated Diagnoses Date/Ti il COLONOSCOPY Encounter for screening for colorectal cancer in high risk patient Family history of rectal cancer documented as of this encounter Results * (ABNORMAL) Aldolase (05/07/2021 12:13 PM CDT) Aldolase 12.5(H) 0.1 - 8.0 Units/L [facility] Blood specimen (specimen) 05/07/2021 12:13 PM CDT 05/07/2021 2:39 PM CDT us Tabitha Hurley MD LAB BLOOD ORDERABLES Final Result Performing Organization Address [facility] [place] [address] * KEISHA qualitative with reflex to KEISHA Quantitative (05/07/2021 12:13 PM CDT) KEISHA Negative [facility] Comment: Interpretive Data Normal range for KEISHA Qualitative Antibody = Negative. 1. KEISHA is performed using indirect immunofluorescence against HEp-2 cells 2. KEISHA titers are performed on all positive qualitative results. 3. A significantly positive KEISHA result is defined as a positive nuclear fluorescence at a titer of 1:80 or greater. 4. 15% of normal people above age 65 have significantly positive KEISHA results. ??5% or less of normal people age 65 or under have significantly positive KEISHA results. Current interpretive data was last revised on 2020. Blood specimen (specimen) 05/07/2021 12:13 PM CDT 05/07/2021 2:39 PM CDT us Tabitha Hurley MD LAB BLOOD ORDERABLES Final Result Performing Organization Address [facility] de Phone Number [facility] [place] [address] * GEOVANNI Antibody Evaluation with Reflex (05/07/2021 12:13 PM CDT) GEOVANNI ab Negative Negative [facility] Comment: Interpretive Data Positive Screens will be reflexed to specific testing for the following antigens: Joy-1 Ab, DIRECTOR OF PRODUCT MARKETING Ab, Scl-70 Ab, Zamora Ab, SS-A/Ro Ab, and SS-B/La Ab. Further testing for dsDNA, Centromere, or Ribosomal P antibodies is suggested in patient with a positive screen and negative specific antibodies. Current interpretive data was last revised on 17. Blood specimen (specimen) 05/07/2021 12:13 PM CDT 05/07/2021 2:39 PM CDT us Tabitha Hurley MD LAB BLOOD ORDERABLES Final Result Performing Organization Address [facility] [place] [address] * Anti-double stranded DNA antibodies (05/07/2021 12:13 PM CDT) dsDNA Ab <1.0 <=4.0 IUnits/mL [facility] Comment: Interpretive Data Negative: < or = 4 IUnits/mL Indeterminate: 5 - 9 IUnits/mL Positive: > or = 10 IUnits/mL Current interpretive data was last revised on 2017. Blood specimen (specimen) 05/07/2021 12:13 PM CDT 05/07/2021 2:39 PM CDT Tabitha Hurley MD LAB BLOOD ORDERABLES Final Result Performing Organization Address [facility] [place] [address] * C3 complement (05/07/2021 12:13 PM CDT) Complement C3 159.0 90.0 - 180.0 mg/dL [facility] Blood specimen (specimen) 05/07/2021 12:13 PM CDT 05/07/2021 2:39 PM CDT Tabitha Hurley MD LAB BLOOD ORDERABLES Final Result Performing Organization Address [facility] [place] [address] * C4 complement (05/07/2021 12:13 PM CDT) Complement C4 33.2 10.0 - 40.0 mg/dL [facility] Blood specimen (specimen) 05/07/2021 12:13 PM CDT 05/07/2021 2:39 PM CDT Tabitha Hurley MD LAB BLOOD ORDERABLES Final Result Performing Organization Address [facility] Co de Phone Number [facility] [place] [address] * (ABNORMAL) Complement, total (05/07/2021 12:13 PM CDT) Pathologist [facility] Complement hemolytic >75(H) 30 - 75 units/mL [facility] Comment: Test Performed by: [facility] [address] [place] [address] Chemist Water Purification: Jason Sandy M.D. Ph.D.; CLIA# [id number] Blood specimen (specimen) 05/07/2021 12:13 PM CDT 05/11/2021 10:55 PM CDT Tabitha Hurley MD LAB BLOOD ORDERABLES Final Result Performing Organization Address [facility] Co de Phone Number [facility] [place] [address] * (ABNORMAL) Angiotensin converting enzyme (05/07/2021 12:13 PM CDT) [facility] REEMA 131(H) 10 - 55 Units/L [facility] Comment:Repeated on Dilution Blood specimen (specimen) 05/07/2021 12:13 PM CDT 05/07/2021 2:39 PM CDT Tabitha Hurley MD LAB BLOOD ORDERABLES Final Result Performing Organization Address [facility] Co de Phone Number [facility] [place] [address] * (ABNORMAL) Erythrocyte sedimentation rate (05/07/2021 12:13 PM CDT) Pathologist [facility] Erythrocyte sedimentation rate 49(H) 1 - 15 mm/hr [facility] Blood specimen (specimen) 05/07/2021 12:13 PM CDT 05/07/2021 2:39 PM CDT Tabitha Hurley MD LAB BLOOD ORDERABLES Final Result Performing Organization Address [facility] Co de Phone Number [facility] [place] [address] * CRP (acute phase) (05/07/2021 12:13 PM CDT) CRP 8.2 <=10.0 mg/L [facility] Blood specimen (specimen) 05/07/2021 12:13 PM CDT 05/07/2021 2:39 PM CDT Tabitha Hurley MD LAB BLOOD ORDERABLES Final Result Performing Organization Address [facility] Co de Phone Number [facility] [place] [address] * (ABNORMAL) Myomarker panel 3 (05/07/2021 12:13 PM CDT) Pathologist [facility] Anti-Joy-1 ab <20 <20 Units [facility] Anti PL-7 ab Negative Negative [facility] Comment: This test was developed and its performance characteristics determined by [facility]. It has not been cleared or approved by the Food and Drug Administration. Anti PL-12 ab Negative Negative [facility] Comment: This test was developed and its performance characteristics determined by [facility]. It has not been cleared or approved by the Food and Drug Administration. Anti EJ ab Negative Negative [facility] Comment: This test was developed and its performance characteristics determined by [facility]. It has not been cleared or approved by the Food and Drug Administration. Anti OJ ab Negative Negative [facility] Comment: This test was developed and its performance characteristics determined by [facility]. It has not been cleared or approved by the Food and Drug Administration. Anti SRP ab Negative Negative [facility] Comment: This test was developed and its performance characteristics determined by [facility]. It has not been cleared or approved by the Food and Drug Administration. Anti Mi-2 ab Negative Negative [facility] Comment: This test was developed and its performance characteristics determined by [facility]. It has not been cleared or approved by the Food and Drug Administration. Polymyositis PM-SCL ab <20 <20 Units [facility] Comment: This test was developed and its performance characteristics determined by [facility]. It has not been cleared or approved by the Food and Drug Administration. Fibrillarin U3 ab Negative Negative [facility] Comment: This test was developed and its performance characteristics determined by [facility]. It has not been cleared or approved by the Food and Drug Administration. ?Interpretation for Anti-Joy-1, Rjxl-UCA-6mokcy, ?Anti-MDA-5, Anti-NXP-2, Anti-PM/Scl-100, ?Anti-SS-A 52 kD, Anti-U1 DIRECTOR OF PRODUCT MARKETING: ?Negative: ?<20 ?Weak Positive: ? 20 - 39 ?Moderate Positive: ? 40 - 80 ?Strong Positive: ? >80 ?. Test Performed by: [facility] [address] [place] [address] Anti U2 SN DIRECTOR OF PRODUCT MARKETING ab Negative Negative [facility] Comment: This test was developed and its performance characteristics determined by [facility]. It has not been cleared or approved by the Food and Drug Administration. Anti U1RNP ab <20 <20 Units [facility] Comment: This test was developed and its performance characteristics determined by [facility]. It has not been cleared or approved by the Food and Drug Administration. Anti KU ab Weak Positive(A) Negative [facility] Comment: This test was developed and its performance characteristics determined by [facility]. It has not been cleared or approved by the Food and Drug Administration. P155/140 ab <20 <20 Units [facility] Comment: This test was developed and its performance characteristics determined by [facility]. It has not been cleared or approved by the Food and Drug Administration. MDA-5 P140 ab <20 <20 Units [facility] Comment: This test was developed and its performance characteristics determined by [facility]. It has not been cleared or approved by the Food and Drug Administration. NXP-2 P140 ab <20 <20 Units [facility] Comment: This test was developed and its performance characteristics determined by [facility]. It has not been cleared or approved by the Food and Drug Administration. SSA52 KD ab IgG 21(H) <20 Units [facility] Comment: This test was developed and its performance characteristics determined by [facility]. It has not been cleared or approved by the Food and Drug Administration. Blood specimen (specimen) 05/07/2021 12:13 PM CDT 05/07/2021 3:08 PM CDT Tabitha Hurley MD LAB BLOOD ORDERABLES Final Result [facility] [place] [address] * Creatine kinase (CK), total (05/07/2021 12:13 PM CDT) CK, Total 105 26 - 308 IU/L [facility] Blood specimen (specimen) 05/07/2021 12:13 PM CDT 05/07/2021 1:03 PM CDT Tabitha Hurley MD LAB BLOOD ORDERABLES Final Result [facility] documented in this encounter Visit Diagnoses Diagnosis Arthralgia, unspecified joint- Primary [id number] Autoimmune disease, not elsewhere classified Abnormal positron emission tomography (PET) scan documented in this encounter Orders Outpatient Referral Count Last Ordered Date Fir st Ordered Date AMB REFERRAL TO RHEUMATOLOGY 1 05/07/2021 documented in this encounter Care Teams Vice President Pharmacy Relationship Specialty Start Date End Date Guero Colunga DO PCP - General Internal Medicine 03/22/19 04/18/23 Amber Montesinos RN Paralegal Instructor Transplant 11/17/19 Jil Duncan MD Consulting Physician Infectious Diseases 01/10/20 Anita Gillespie MD Medical Oncologist/Conveyor Attendant Medical Oncology 10/07/20 documented as of this encounter
--- OUTSIDE RECORDS SUMMARY | 2024-10-28 06:17 | XMS_ITS | Encounter Summary ---
Author Organization [facility] Address [address] [place] [address] Phone Care Team Providers Care Retail Administrative Assistant Name Role Phone Guero Colunga DO Primary Care Provider [phone] Amber Montesinos RN Unavailable [phone] Jil Duncan MD Unavailable [phone] Anita Gillespie MD Unavailable [phone] Reason for Referral * (Routine) - Closed Specialty Diagnoses / Procedures Referred By Contac t Referred To Contact Diagnoses Muscle weakness Procedures Pulmonary Function Test -[facility]- [facility]; SPI sitting and Supine Jan Bailon MD [address] [place] [address] Phone: tel: fax: Referral ID Status Reason Start Date Expiration Date Visits Re quested Visits Authorized [id number] Closed 08/28/2021 09/27/2022 1 1 Encounter Details Date Type Department Care Team (Late st Contact Info) Description 08/28/2021 Orders Only [facility] Pulmonary [address] [facility] 8[address] [place] [address] [place] [address] Jan Bailon MD [address] [place] [address] Muscle weakness (Primary Dx) Social History Tobacco Use Types Packs/Day Years Used Date Smoking Tobacco: Never Smokeless Tobacco: Current Chew Alcohol Use Standard Drinks/Week Comments Yes 0 (1 standard drink = 0.6 oz pur e alcohol) occassional Sex and Gender Information Value Date Recorded Sex Assigned at Not on file 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 FVC %PRE PRED 64 % [facility] FEV1 PRE 2.[address] [facility] FEV1 %PRE PRED 62 % [facility] FEV1/FVC PRE 80.9 % [facility] Anatomical Region Laterality Modality PFT 11/12/2021 7:56 AM TANK BUILDER SUPERVISOR Narrative 11/17/2021 7:29 AM TANK BUILDER SUPERVISOR SEE PDF PFT performed at:->[facility] Procedure:->SPI sitting and Supine Jan Bailon MD PFT ORDERABLES Final Result documented in this encounter Visit Diagnoses Diagnosis Muscle weakness- Primary Muscle weakness (generalized) Muscle weakness Muscle weakness (generalized) documented in this encounter Care Teams Retail Administrative Assistant Relationship Specialty Start Date End Date Guero Colunga DO PCP - General Internal Medicine 03/22/19 04/18/23 Amber Montesinos, SHAILESH Home Paraprofessional Transplant 11/17/19 Jil Duncan MD Consulting Physician Infectious Diseases 01/10/20 Anita Gillespie MD Medical Oncologist/Garland Maker Medical Oncology 10/07/20 documented as of this encounter
--- OUTSIDE RECORDS SUMMARY | 2024-10-28 06:17 | XMS_ITS | Encounter Summary ---
Author Organization [facility] Address [address] [place] [address] Phone Care Team Providers Care Apple Sorter Name Role Phone Guero Colunga DO Primary Care Provider [phone] Amber Montesinos RN Unavailable [phone] Jil Duncan MD Unavailable [phone] Anita Gillespie MD Unavailable [phone] Encounter Details Date Type Department Care Team (Latest Contact Info) Description 02/05/2021 8:45 AM CDT Office Visit 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 Gender Identity Not on file Sexual Orientation Straight 08/22/2021 9: 23 AM CDT documented as of this encounter Last Filed Vital Signs Vital Sign Reading Time Taken Comments Blood Pressure 99/64 02/05/2021 8:42 AM CDT Pulse 69 02/05/2021 8:42 AM CDT Temperature 36.6 ??C (97.8 ??F) 02/05/2021 8:40 AM CD T Respiratory Rate 18 02/05/2021 8:40 AM CDT Oxygen Saturation 98% 02/05/2021 8:42 AM CDT Inhaled Oxygen Concentration - - Weight 54.9 kg (121 lb) 02/05/2021 8:40 AM CDT Height - - Body Mass Index 18.95 01/17/2021 1:44 PM CDT documented in this encounter Patient Instructions * Patient Instructions* Samreen Greene RN - 02/05/2021 8:45 AM CDT Images from the original note were not included. COVID-19 Information: https://www.bjc.org/coronavirus People at Risk for Serious Illness from COVID-19: https://www.cdc.gov/coronavirus/2019-ncov/specific -groups/cqfd-yfmk-whogydttlvllw.html More Resources ??? World Health Organization (WHO): https://www.who.int/emergencies/diseases/cnuqw-cyrrrbkytvc-0149 ??? CDC What Do You Need to Know Factsheet: https://www.cdc.gov/coronavirus/2019-ncov/downloads/3002-yjqt-gcaebzqor.pdf documented in this encounter Progress Notes * Chapo Cabezas MD - 02/05/2021 12:00 AM CDT PATIENT NAME: ADI NICHOLS : 1995 JUSTEN: 02/05/2021 DIAGNOSES: 1. 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 2. 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 3. Bilateral pulmonary emboli diagnosed on 10/19/2017. TREATMENT AND DISEASE COURSE: 1. R-CHOP x 1, 08/25/2017. 2. Dose adjusted EPOCH-R x 5, 09/15/2017 - 12/2017. Post-C2 PET: ND (5PS = 4), CR post C5 3. [...] INTERVAL HISTORY: Mr. Nichols returns to the [facility] for continued follow-up of his PTLD. We last saw himon 11/06/2020. Since that time, he has received 3 more cycles of subcutaneous IG at home, for a total of 4 cycles. He has noted dramatic improvement in his migratory arthralgias and myalgias. He is fu nctionally back to his baseline. 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 His whole familygot COVID, except for him. He has remained healthy, without any fevers, chills, progressive adenopathy, sweats, or weight change. He occasionally has epistaxis. This has been longstanding, and it lasts for a short period of time, and it resolves on it's own. He saw Pulmonology for his pulmonary nodules in December, and he was noted to have a negative ANCA, negative IgE, mildly elevated aldolase at 11.5, and he had a CT scan performed today, which shows interval improvement in the pulmonary nodules. He has started back on Valcyte in December due to rising CMV titer, and he has been tolerating that. PHYSICAL EXAMINATION: Vital Signs: Blood pressure 99/64, pulse 69, respiration 18, temperature is 36.6, SpO2 of 98%, weight 54.9 kg. General: Well-appearing gentleman, resting comfortably. Neck: Supple. No thyromegaly. HEENT: Oropharynx clear. Heart: Regular rate and rhythm. No murmurs, rubs, or gallops. Nodes: A 1 cm left jugulodigastric, and just posterior to the jugulodigastric, there is another 1 cm node. At the left low posterior cervical lymph node, there is a chain of about 6 lymph nodes, eachmeasuring subcentimeter. On his right cervical chain, he has about 3 lymph nodes, each measuring subcentimeter. His right jugulodigastric is measuring 1.5 cm, a 2 cm left axilla lymph node in the anterior and a second superior to that that is about cm, a 1.5 right axilla lymph node, and several 1 cm left inguinal lymph nodes and right inguinal lymph nodes. Abdomen: Soft, nontender. No hepatosplenomegaly. Extremities: No edema. Skin: Without rashes or lesions. Neurologic: A&O x3. Cranial nerves II through XII intact; 5/5 strength in the upper and lower extremities bilaterally. LABORATORY DATA: CMP mildly elevated, AST of 75, ALT of 68, alk phos of 383, and LDH 308. CBC noted a mildly low ANCof 1.5, CMV PCR 142 IU/mL, tacrolimus trough 6.8, Flow cytometry without monoclonal B-cell population IMAGING DATA: CT high-resolution performed on 02/05/2021 demonstrates unchanged lymphadenopathy within the chest comparable to the prior PET scan and interval improvement in scattered ground-glass opacities, favored to represent resolving infectious process. ASSESSMENT AND PLAN: 1. History of C-Myc positive posttransplant lymphoproliferative disorder, EBV positive, stage EMY, IPI 3 for stage, LDH, extranodal sites. This is a 25-year-old man, who is now over 3 years status post dose-adjusted EPOCH-R, who achieved a complete metabolic remission. He continues to have diffuse l ymphadenopathy, which has been stable and unchanged. It has had multiple biopsies, without evidenceof recurrent disease. He had a PET scan in October, which showed that everything was relatively stable. There is no clinical concern for progression. Therefore, we will continue to monitor him and see him back every 3 months. 2. Nonspecific inflammatory arthritis. He had previously had arthralgias with a PET scan demonstrating mildly increased FDG avidity in his joints. He has responded to IVIG, which probably led to someimmunomodulation. We will continue to monitor this for now. 3. CVID. He has been started on subcutaneous immunoglobulin since October and has received 4 cycles. We will continue with that indefinitely at this point. 4. History of liver transplant. He follows with Dr. Gresham and is on tacrolimus 0.5 mg b.i.d. 5. Pulmonary nodules. He has been seen by Pulmonology, and it is favored that these are infectious in etiology. They are resolving based on today's CT scan. 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 He is following with Dr. Duncan in [place]. He is currently on Valcyte 900 mg b.i.d. and tolerating it well. 7. Follow-up. We will see him back in 3 months. He knows to call with any questions or concerns. ELECTRONICALLY SIGNED - 02/07/2021 01:59 PM Chapo Cabezas M.D. Fellow I have seen and examined the patient and agree with the findings and plan of care as documented by and/or discussed with Chapo Cabezas M.D.. ELECTRONICALLY SIGNED - 02/09/2021 09:02 AM Anita Gillespie M.D. mailroom manager [facility] Chair in Medical Oncology SRG/SREEDHAR/lw cc: LENO GRESHAM MD [address] [facility] [address], [address] [place] [address] / GARRY FRANKS MD [address] [facility] [address] [place] [address] LINDA CHAPA MD [address] [facility] [place] [address] / GUERO COLUNGA DO [address] [place] [address] / documented in this encounter Miscellaneous Notes * Addendum Note - Trixie Kwon - 02/05/2021 8:45 AM CDTAddended by: TRIXIE KWON on: 05/07/2021 07:39 AM Modules accepted: Orders documented in this encounter Plan of Treatment Scheduled Procedures Name Priority Associated Diagnoses Date/Ti me COLONOSCOPY Encounter for screening for colorectal cancer in high risk patient Family history of rectal cancer documented as of this encounter Results * Lactate dehydrogenase (LD) (05/07/2021 8:23 AM CDT) Lactate dehydrogenase (LDH) 247 100 - 250 Units/L [facility] Comment:Testing performed by : [facility], [address] [place] [phone] Blood specimen (specimen) 05/07/2021 8:23 AM CDT 05/07/2021 8:25 AM CDT us Anita Gillespie MD LAB BLOOD ORDERABLES Final Result [facility] Department [place] [address] * (ABNORMAL) Comprehensive metabolic panel (05/07/2021 8:23 AM CDT) Sodium 141 135 - 145 mmol/L [facility] Comment:Testing performed by : [facility], [address] [place] [phone] Potassium, pl 4.3 3.3 - 4.9 mmol/L [facility] Comment:Testing performed by : [facility], [address] [place] [phone] Chloride 105 97 - 110 mmol/L [facility] Comment:Testing performed by : [facility], [address] [place] [phone] CO2 31 22 - 32 mmol/L [facility] Comment:Testing performed by : [facility], [address] [place] [phone] Anion gap 5 2 - 15 mmol/L [facility] Comment:Testing performed by : [facility], [address] [place] [phone] BUN 8 8 - 25 mg/dL [facility] Comment:Testing performed by : [facility], [address] [place] [phone] Creatinine 0.77(L) 0.80 - 1.30 mg/dL [facility] Comment:Testing performed by : [facility], [address] [place] [phone] Glucose 87 70 - 199 mg/dL [facility] Comment: [...] was last revised 2017. Testing performed by: [place] [phone] Calcium 9.4 8.5 - 10.3 mg/dL [facility] Comment:Testing performed by : [facility], [address] [place] [phone] Bilirubin, total 0.9 0.1 - 1.2 mg/dL [facility] Comment:Testing performed by : [address] [phone] Protein, pl 7.2 6.5 - 8.5 g/dL [facility] Comment:Testing performed by : [address] [phone] Albumin 4.2 3.5 - 5.0 g/dL [facility] Comment:Testing performed by : [address] [phone] Alk phos 451(H) 40 - 130 Units/L [facility] Comment:Testing performed by : [place] [phone] ALT 77(H) 7 - 55 Units/L [facility] Comment:Testing performed by : [address] [phone] AST 84(H) 10 - 50 Units/L [facility] Comment:Testing performed by : [facility], [address] [place] [phone] Blood specimen (specimen) 05/07/2021 8:23 AM CDT 05/07/2021 8:25 AM CDT Anita Gillespie MD LAB BLOOD ORDERABLES Final Result [facility] Department [place] [address] * (ABNORMAL) CBC with auto differential (05/07/2021 8:23 AM CDT) WBC 7.8 3.8 - 9.8 K/cumm [facility] Comment:Testing performed by : [facility], [address] [place] [phone] Hgb 14.8 13.8 - 17.2 g/dL [facility] Comment:Testing performed by : [facility], [address] [place] [phone] Hct 44.2 40.7 - 50.3 % [facility] Comment:Testing performed by : [facility], [address] [place] [phone] Plt 206 140 - 440 K/cumm [facility] Comment:Testing performed by : [address] [phone] MPV 8.6 6.8 - 10.4 fL [facility] Comment:Testing performed by : [facility], [address] [place] [phone] RBC 4.42(L) 4.50 - 5.70 M/cumm [facility] Comment:Testing performed by : [address] [phone] MCV 100.0(H) 80.0 - 97.6 fL [facility] Comment:Testing performed by : [address] [phone] MCH 33.5 26.7 - 33.7 pg [facility] Comment:Testing performed by : [facility], [address] [place] [phone] MCHC 33.6 32.7 - 35.5 g/dL [facility] Comment:Testing performed by : [facility], [address] [place] [phone] RDW CV 14.2 11.8 - 14.6 % [facility] Comment:Testing performed by : [facility], [address] [place] [phone] NRBC abs 0.00 0.00 - 0.01 K/cumm [facility] Comment:Testing performed by : [facility], [address] [place] [phone] Blood specimen (specimen) 05/07/2021 8:23 AM CDT 05/07/2021 8:25 AM CDT Anita Gillespie MD LAB BLOOD ORDERABLES Final Result Performing Organization Address [facility]/ZIP Co de Phone Number [facility] Department [place] [address] * IgG (05/07/2021 8:23 AM CDT) Immunoglobulin G 1,295.0 700.0 - 1,600.0 mg/dL [facility] Blood specimen (specimen) 05/07/2021 8:23 AM CDT 05/07/2021 8:55 AM CDT Anita Gillespie MD LAB BLOOD ORDERABLES Final Result Performing Organization Address City/[facility] Co de Phone Number [facility] [place] [address] documented in this encounter Visit Diagnoses Diagnosis 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) Other neutropenia documented in this encounter Orders Appointment Requests Count Last Ordered Date Fi rst Ordered Date ONCBCN CLINIC APPOINTMENT REQUEST 2 021 02/05/2021 ONCBCN LAB APPOINTMENT 1 05/07/2021 documented in this encounter Care Teams Apple Sorter Relationship Specialty Start Date End Date Guero Colunga DO PCP - General Internal Medicine 03/22/19 04/18/23 Amber Montesinos, SHAILESH Groundhand Transplant 11/17/19 Jil Duncan MD Consulting Physician Infectious Diseases 01/10/20 Anita Gillespie MD Medical Oncologist/Black Top Paver Operator Medical Oncology 10/07/20 documented as of this encounter
--- OUTSIDE RECORDS SUMMARY | 2024-10-28 06:17 | XMS_ITS | Encounter Summary ---
Author Organization [facility] Address [address] [place] [address] Phone Care Team Providers Care Humanities Teacher Name Role Phone Guero Colunga DO Primary Care Provider [phone] Amber Montesinos RN Unavailable [phone] Jil Duncan MD Unavailable [phone] Anita Gillespie MD Unavailable [phone] Encounter Details Date Type Department Care Team (Late st Contact Info) Description 06/24/2021 Telephone [facility] Oncology [address] [facility] [address] [place] [id number] Samreen Greene RN Social History Tobacco Use Types Packs/Day Years Used Date Smoking Tobacco: Never Smokeless Tobacco: Current Chew Alcohol Use Standard Drinks/Week Comments Yes 0 (1 standard drink = 0.6 oz pur e alcohol) occassional Sex and Gender Information Value Date Recorded Sex Assigned at Not on file 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 I left my number for them to reach me at their earliest convenience. documented in this encounter Plan of Treatment Scheduled Procedures Name Priority Associated Diagnoses Date/Ti me COLONOSCOPY Encounter for screening for colorectal cancer in high risk patient Family history of rectal cancer documented as of this encounter Visit Diagnoses Not on filedocumented in this encounter Care Teams Humanities Teacher Relationship Specialty Start Date End Date Guero Coulnga DO PCP - General Internal Medicine 03/22/19 04/18/23 Amber Montesinos RN Buttonhole Machine Operator Transplant 11/17/19 Jil Duncan MD Consulting Physician Infectious Diseases 01/10/20 Anita Gillespie MD Medical Oncologist/Business Practices Officer Medical Oncology 10/07/20 documented as of this encounter
--- OUTSIDE RECORDS SUMMARY | 2024-10-28 06:17 | XMS_ITS | Encounter Summary ---
Author Organization [facility] Address [address] [place] [address] Phone Care Team Providers Care It Technical Architect Name Role Phone Guero Colunga DO Primary Care Provider [phone] Amber Montesinos RN Unavailable [phone] Jil Duncan MD Unavailable [phone] Anita Gillespie MD Unavailable [phone] Encounter Details Date Type Department Care Team (Late st Contact Info) Description 06/24/2021 Telephone [facility] Oncology [address] [facility] [address] [place] [id number] Samreen Greene RN Social History Tobacco Use Types Packs/Day Years Used Date Smoking Tobacco: Never Smokeless Tobacco: Current Chew Alcohol Use Standard Drinks/Week Comments Yes 0 (1 standard drink = 0.6 oz pur e alcohol) occassional Sex and Gender Information Value Date Recorded Sex Assigned at Not on file 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 He is finishing the course now. He no longer has cough, runny nose, etc. They know to call if any of these symptoms return. documented in this encounter Plan of Treatment Scheduled Procedures Name Priority Associated Diagnoses Date/Ti me COLONOSCOPY Encounter for screening for colorectal cancer in high risk patient Family history of rectal cancer documented as of this encounter Visit Diagnoses Not on filedocumented in this encounter Care Teams It Technical Architect Relationship Specialty Start Date End Date Guero Colunga DO PCP - General Internal Medicine 03/22/19 04/18/23 Amber Montesinos RN C Python Developer Transplant 11/17/19 Jil Duncan MD Consulting Physician Infectious Diseases 01/10/20 Anita Gillespie MD Medical Oncologist/Rotoprinter Medical Oncology 10/07/20 documented as of this encounter
--- OUTSIDE RECORDS SUMMARY | 2024-10-28 06:17 | XMS_ITS | Encounter Summary ---
Author Organization [facility] Address [address] [facility] [address] [place] [address] Phone Care Team Providers Care Rental Clerk Name Role Phone Guero Colunga DO Primary Care Provider [phone] Amber Montesinos RN Unavailable [phone] Jil Duncan MD Unavailable [phone] Anita Gillespie MD Unavailable [phone] Encounter Details Date Type Department Care Team (Late st Contact Info) Description 02/10/2021 Telephone [facility] Infectious Diseases [address] [place] [address] [address] [place] [address] Lisandra Auguste NP [address] [place] [address] Social History Tobacco Use Types Packs/Day Years Used Date Smoking Tobacco: Never Smokeless Tobacco: Current Chew Alcohol Use Standard Drinks/Week Comments Yes 0 (1 standard drink = 0.6 oz pur e alcohol) occassional Sex and Gender Information Value Date Recorded Sex Assigned at Not on file Legal 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 Beka will continue Valcyte for another 2 weeks and repeat CMV level. Anticipate stopping Valcyte after repeat labs are reviewed. Order placed for labs to be drawn in [facility] documented in this encounter Plan of Treatment Scheduled Procedures Name Priority Associated Diagnoses Date/Ti me COLONOSCOPY Encounter for screening for colorectal cancer in high risk patient Family history of rectal cancer documented as of this encounter Results * (ABNORMAL) Cytomegalovirus (CMV) DNA PCR, quantitative Blood (03/08/2021 8:51 AM CDT) CMV DNA Detected( A) [facility] Comment: Interpretive Data: The quantifiable range of this assay is 137 IUnits/mL to 9,100,000 IUnits/mL (2.14 log IUnits/mL to 6.96 log IUnits/mL). Testing was performed by the NIA AmpliPrep/NIA TaqMan CMV Test ([employer] Testing performed at [facility] Current interpretive data was last revised on 17. CMV DNA IU/mL <137 IUnits/mL [facility] CMV DNA log IU/mL <2.14 log IUnits/mL [facility] Blood specimen (specimen) 03/08/2021 8:51 AM CDT 03/08/2021 9:40 AM CDT us Lisandra Auguste NP LAB MICROBIOLOGY - GENERA L ORDERABLES Final Result [facility] Department [place] [address] documented in this encounter Visit Diagnoses Diagnosis Cytomegalovirus infection, unspecified cytomegaloviral infection type (HCC)- Primary documented in this encounter Care Teams Rental Clerk Relationship Specialty Start Date End Date Guero Colunga DO PCP - General Internal Medicine 03/22/19 04/18/23 Amber Montesinos, SHAILESH Inspector Receiving Transplant 11/17/19 Jil Duncan MD Consulting Physician Infectious Diseases 01/10/20 Anita Gillespie MD Medical Oncologist/Federal Court [employer] Law Clerk Medical Oncology 10/07/20 documented as of this encounter
--- OUTSIDE RECORDS SUMMARY | 2024-10-28 06:17 | XMS_ITS | Encounter Summary ---
Author Organization [facility] Address [address] [place] [address] Care Team Providers Care Biomedical Electronics Technician Name Role Phone Guero Colunga DO Primary Care Provider [phone] Amber Montesinos RN Unavailable [phone] Jil Duncan MD Unavailable [phone] Anita Gillespie MD Unavailable [phone] Encounter Details Date Type Department Care Team (Late st Contact Info) Description 03/08/2021 9:15 AM CDT Lab [facility] ([facility] [address] [place] [phone] Jil Duncan MD [address] [facility] [place] [address] Lisandra Auguste NP [address] [place] [address] Cytomegalovirus infection, unspecified cytomegaloviral infection type (CMS/HCC) Discharge Disposition: Discharge to home or self care Social History Tobacco Use Types Packs/Day Years Used Date Smoking Tobacco: Never Smokeless Tobacco: Current Chew Alcohol Use Standard Drinks/Week Comments Yes 0 (1 standard drink = 0.6 oz pur e alcohol) occassional Sex and Gender Information Value Date Recorded Sex Assigned at Not on file 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 Thanks! * Result Encounter Note - Lisandra Auguste NP - 03/11/2021 1:46 PM CDT Beka Corral's CMV viral load negative. Dr. Duncan and I are discussing stopping valcyte vs continuing maddy lower dose for prophylaxis. Any thoughts? documented in this encounter Plan of Treatment Scheduled Procedures Name Priority Associated Diagnoses Date/Ti me COLONOSCOPY Encounter for screening for colorectal cancer in high risk patient Family history of rectal cancer documented as of this encounter Procedures Procedure Name Priority Date/Time Associated Diagnosis Comments CYTOMEGALOVIRUS (CMV) DNA, QUANT GEN LAB Routine 03/08/2021 8:51 AM CDT Cytomegalovirus infection, unspecified cytomegaloviral infection type (CMS/HCC) documented in this encounter Results * (ABNORMAL) Cytomegalovirus (CMV) DNA PCR, quantitative Blood (03/08/2021 8:51 AM CDT) Pathologist [facility] CMV DNA Detected( A) [facility] Comment: Interpretive Data: The quantifiable range of this assay is 137 IUnits/mL to 9,100,000 IUnits/mL (2.14 log IUnits/mL to 6.96 log IUnits/mL). Testing was performed by the NIA AmpliPrep/NIA TaqMan CMV Test ([employer] Testing performed at [facility] Current interpretive data was last revised on 17. CMV DNA IU/mL <137 IUnits/mL [facility] CMV DNA log IU/mL <2.14 log IUnits/mL [facility] Blood specimen (specimen) 03/08/2021 8:51 AM CDT 03/08/2021 9:40 AM CDT us Lisandra Auguste LBD TEACHER LAB MICROBIOLOGY - GENERA L ORDERABLES Final Result [facility] Department [place] [address] documented in this encounter Visit Diagnoses Diagnosis Cytomegalovirus infection, unspecified cytomegaloviral infection type (HCC) documented in this encounter Care Teams Biomedical Electronics Technician Relationship Specialty Start Date End Date Guero Colunga DO PCP - General Internal Medicine 03/22/19 04/18/23 Amber Montesinos, SHAILESH Office Coordinator Transplant 11/17/19 Jil Duncan MD Consulting Physician Infectious Diseases 01/10/20 Anita Gillespie MD Medical Oncologist/Phthalic Acid Purifier Medical Oncology 10/07/20 documented as of this encounter
--- OUTSIDE RECORDS SUMMARY | 2024-10-28 06:17 | XMS_ITS | Encounter Summary ---
Author Organization [facility] Address [address] [place] [address] Phone Care Team Providers Care Product Operations Associate Name Role Phone Guero Colunga DO Primary Care Provider [phone] Amber Montesinos RN Unavailable [phone] Jil Duncan MD Unavailable [phone] Anita Gillespie MD Unavailable [phone] Encounter Details Date Type Department Care Team (Late st Contact Info) Description 08/28/2021 Orders Only [facility] Oncology [address] [facility] 7th [place] [address] [place] [address] Samreen Greene RN Social History Tobacco Use Types Packs/Day Years Used Date Smoking Tobacco: Never Smokeless Tobacco: Current Chew Alcohol Use Standard Drinks/Week Comments Yes 0 (1 standard drink = 0.6 oz pur e alcohol) occassional Sex and Gender Information Value Date Recorded Sex Assigned at Not on file 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 Gender Identity Not on file Sexual Orientation Straight 08/22/2021 9: 23 AM CDT documented as of this encounter Ordered Prescriptions Prescription Sig Dispense Quantity Refills Last Filled Start Date End Date amoxicillin-clavul anate (AUGMENTIN) 875-125 mg per tablet Take 1 tablet by mouth 2 (two) times a day for 10 days 20 tablet 08/28/2021 09/07/2021 documented in this encounter Plan of Treatment Scheduled Procedures Name Priority Associated Diagnoses Date/Ti me COLONOSCOPY Encounter for screening for colorectal cancer in high risk patient Family history of rectal cancer documented as of this encounter Visit Diagnoses Not on filedocumented in this encounter Care Teams Product Operations Associate Relationship Specialty Start Date End Date Guero Colunga DO PCP - General Internal Medicine 03/22/19 04/18/23 Amber Montesinos, SHAILESH Behavioral Health Professional Transplant 11/17/19 Jil Duncan MD Consulting Physician Infectious Diseases 01/10/20 Anita Gillespie MD Medical Oncologist/Student Dean Medical Oncology 10/07/20 documented as of this encounter
--- OUTSIDE RECORDS SUMMARY | 2024-10-28 06:17 | XMS_ITS | Encounter Summary ---
Author Organization [facility] Address [address] [place] [address] Phone Care Team Providers Care Cold Press Operator Name Role Phone Guero Colunga DO Primary Care Provider [phone] Amber Montesinos RN Unavailable [phone] Jil Duncan MD Unavailable [phone] Anita Gillespie MD Unavailable [phone] Encounter Details Date Type Department Care Team (Late st Contact Info) Description 06/09/2021 Telephone [facility] Oncology [address] [facility] [address]th [place] [address] [place] [address] Samreen Greene RN Social History Tobacco Use Types Packs/Day Years Used Date Smoking Tobacco: Never Smokeless Tobacco: Current Chew Alcohol Use Standard Drinks/Week Comments Yes 0 (1 standard drink = 0.6 oz pur e alcohol) occassional Sex and Gender Information Value Date Recorded Sex Assigned at Not on file Legal 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 He felt great for several days after completing the 10 day course of Augmentin, but slowly started having his symptoms return. He now is having yellow, hard, cottage cheese texture drainage when blowing his nose. She shared that he has not been coughing this time around and has not had any fevers. He has no sick contacts and has only been going to work and home. No one is ill at work at this time. He missed his IVIG about one week ago now due to his Group Number changing. Will help expedite this process, so he can get this ZAHRA. After discussion with Dr. Gillespie, we will send 3 weeks worth of Augmentin. If his symptoms persist, we will obtain CT sinuses. documented in this encounter Plan of Treatment Scheduled Procedures Name Priority Associated Diagnoses Date/Ti me COLONOSCOPY Encounter for screening for colorectal cancer in high risk patient Family history of rectal cancer documented as of this encounter Visit Diagnoses Not on filedocumented in this encounter Care Teams Cold Press Operator Relationship Specialty Start Date End Date Guero Colunga DO PCP - General Internal Medicine 03/22/19 04/18/23 Amber Montesinos RN Elevator Constructor Supervisor Transplant 11/17/19 Jil Duncan MD Consulting Physician Infectious Diseases 01/10/20 Aniat Gillespie MD Medical Oncologist/Marketing Coordinator Medical Oncology 10/07/20 documented as of this encounter
--- OUTSIDE RECORDS SUMMARY | 2024-10-28 06:17 | XMS_ITS | Encounter Summary ---
Author Organization [facility] Address [address] [place] [address] Phone Care Team Providers Care Sound Effects Manager Name Role Phone Guero Colunga DO Primary Care Provider [phone] Amber Montesinos RN Unavailable [phone] Jil Duncan MD Unavailable [phone] Anita Gillespie MD Unavailable [phone] Reason for Visit * Consultation (Routine) - Closed Specialty Diagnoses / Procedures Referred By Contac t Referred To Contact Rheumatology Diagnoses Autoimmune disease (CMS/HCC) (HCC) Jan Bailon MD [address] [place] [address] Phone: tel: fax: [facility] (All Locations) Referral ID Status Reason Start Date Expiration Date V isits Requested Visits Authorized [id number] Closed Specialty Services Required 05/07/2021 03/15/2022 99 99 Encounter Details Date Type Department Care Team (Late st Contact Info) Description 05/07/2021 1:00 PM CDT Lab [facility] Endocrinology Metabolism and Lipid [address] 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 Gender Identity Not on file Sexual Orientation Straight 08/22/2021 9: 23 AM CDT documented as of this encounter Plan of Treatment Scheduled Procedures Name Priority Associated Diagnoses Date/Ti me COLONOSCOPY Encounter for screening for colorectal cancer in high risk patient Family history of rectal cancer documented as of this encounter Procedures Procedure Name Priority Date/Time Associated Diagnosis Comments CREATINE KINASE (CK), TOTAL Routine 05/07/2021 12:13 PM CDT [id number] Arthralgia, unspecified joint Abnormal positron emission tomography (PET) scan documented in this encounter Results * Creatine kinase (CK), total (05/07/2021 12:13 PM CDT) CK, Total 105 26 - 308 IU/L [facility] Blood specimen (specimen) 05/07/2021 12:13 PM CDT 05/07/2021 1:03 PM CDT us Tabitha Hurley MD LAB BLOOD ORDERABLES Final Result [facility] documented in this encounter Visit Diagnoses Diagnosis [id number] Autoimmune disease, not elsewhere classified Arthralgia, unspecified joint Abnormal positron emission tomography (PET) scan documented in this encounter Care Teams Sound Effects Manager Relationship Specialty Start Date End Date Guero Colunga DO PCP - General Internal Medicine 03/22/19 04/18/23 Amber Montesinos RN Occupational Therapist Assistant Transplant 11/17/19 Jil Duncan MD Consulting Physician Infectious Diseases 01/10/20 Anita Gillespie MD Medical Oncologist/Cable Installer Medical Oncology 10/07/20 documented as of this encounter
--- OUTSIDE RECORDS SUMMARY | 2024-10-28 06:17 | XMS_ITS | Encounter Summary ---
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) Procedures Pulmonary Function Test -[facility]- [facility]; MIPS/MEPS, Maximum Voluntary Ventilation, Spirometry Jan Bailon MD [address] [place] [address] Phone: tel: fax: Referral ID Status Reason Start Date Expiration Date Visits Re quested Visits Authorized [id number] Closed 01/17/2021 02/16/2022 1 1 Reason for Visit * (Routine) - Closed Specialty Diagnoses / Procedures Referred By Contac t Referred To Contact Diagnoses 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) Procedures Pulmonary Function Test -[facility]- [facility]; MIPS/MEPS, Maximum Voluntary Ventilation, Spirometry Jan Bailon MD [address] [place] [address] Phone: tel: fax: Referral ID Status Reason Start Date Expiration Date Visits Re quested Visits Authorized [id number] Closed 01/17/2021 02/16/2022 1 1 Encounter Details Date Type Department Care Team (Latest Contact Info) Description 08/22/2021 1:42 PM CDT - 08/22/2021 11:59 PM CDT Hospital Encounter [facility] Pulmonary [address] [facility] [address] [place] [address] 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) Discharge [...] on file Legal Sex Male 6:28 AM MAXILLOFACIAL PATHOLOGY Gender Identity Not on file Sexual Orientation Straight 08/22/2021 9: 23 AM CDT documented as of this encounter Medications at Time of Discharge IgG/hyaluronidas e,recombinant (HYQVIA SUBQ) Inject under the [...] Scheduled Procedures Name Priority Associated Diagnoses Date/Ti az COLONOSCOPY Encounter for screening for colorectal cancer in high risk patient Family history of rectal cancer documented as of this encounter Procedures Procedure Name Priority Date/Time Associated Diagnosis Comments PULMONARY FUNCTION TEST (PFT) Routine 08/22/2021 2:07 PM CDT 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) documented in this encounter Results * Pulmonary Function Test - (08/22/2021 2:07 PM CDT) FVC PRE 2.99 L [facility] FVC %PRE PRED 60 % [facility] FEV1 PRE 2.42 L [facility] FEV1 %PRE PRED 58 % [facility] FEV1/FVC PRE 80.9 % [facility] Anatomical Region Laterality Modality PFT 08/22/2021 1:53 PM CDT Narrative 08/27/2021 7:18 PM CDT PFT performed at:->[facility]- [facility] Procedure:->MIPS/MEPS Procedure:->Maximum Voluntary Ventilation Procedure:->Spirometry Jan Bailon MD PFT ORDERABLES Final Result documented in this encounter Visit Diagnoses Diagnosis 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
--- OUTSIDE RECORDS SUMMARY | 2024-10-28 06:17 | XMS_ITS | Encounter Summary ---
Author Organization [facility] Address [address] [place] [address] Care Team Providers Care Wind Development Director Name Role Phone Guero Colunga DO Primary Care Provider [phone] Amber Montesinos RN Unavailable [phone] Jil Duncan MD Unavailable [phone] Anita Gillespie MD Unavailable [phone] Encounter Details Date Type Department Care Team (Late st Contact Info) Description 07/22/2021 Orders Only [facility] Transplant Liver [address] [address] [address] [phone] [place], [place] [id number] Amber Montesinos RN Social History Tobacco Use Types Packs/Day Years Used Date Smoking Tobacco: Never Smokeless Tobacco: Current Chew Alcohol Use Standard Drinks/Week Comments Yes 0 (1 standard drink = 0.6 oz pur e alcohol) occassional Sex and Gender Information Value Date Recorded Sex Assigned at Not on file 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 Gender Identity Not on file Sexual Orientation Straight 08/22/2021 9: 23 AM CDT documented as of this encounter Ordered Prescriptions Prescription Sig Dispense Quantity Refills Last Filled Start Date End Date ursodioL (ACTIGALL) 300 mg capsule Take 2 capsules (600 mg total) by mouth daily with dinner 180 capsule 3 07/22/2021 documented in this encounter Plan of Treatment [...] mg total) by mouth daily with dinner TAKE 1 CAPSULE NIGHTLY WITH DINNER FOR 1 WEEK, THEN 2 CAPSULES NIGHTLY WITH DINNER UNTIL TOLD OTHERWISE Reorder 06/04/2021 07/22/2021 documented as of this encounter Care Teams Wind Development Director Relationship Specialty Start Date End Date Guero Colunga DO PCP - General Internal Medicine 03/22/19 04/18/23 Amber Montesinos, SHAILESH Tester Operator Transplant 11/17/19 Jil Duncan MD Consulting Physician Infectious Diseases 01/10/20 Anita Gillespie MD Medical Oncologist/Tube Splicer Medical Oncology 10/07/20 documented as of this encounter
--- OUTSIDE RECORDS SUMMARY | 2024-10-28 06:17 | XMS_ITS | Encounter Summary ---
Author Organization [facility] Address [address] [place] [address] Phone Care Team Providers Care Ice Cream Dipper Name Role Phone Guero Colunga DO Primary Care Provider [phone] Amber Montesinos RN Unavailable [phone] Jil Duncan MD Unavailable [phone] Anita Gillespie MD Unavailable [phone] Encounter Details Date Type Department Care Team (Latest Contact Info) Description 02/03/2021 7:[address] [facility] Infectious Diseases [address] [place] [address] [address] [place] [address] Lisandra Auguste, 3D DESIGNER [address] [place] [address] [address] [place] [address] Cytomegalovirus infection, 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 Dx) Social History Tobacco Use Types Packs/Day Years Used Date Smoking Tobacco: Never Smokeless Tobacco: Current Chew Alcohol Use Standard Drinks/Week Comments Yes 0 (1 standard drink = 0.6 oz pur e alcohol) occassional Sex and Gender Information Value Date Recorded Sex Assigned at Not on file Legal Sex Male 6:28 AM COUNTY RECORDS MANAGEMENT OFFICER Gender Identity Not on file Sexual Orientation Straight 08/22/2021 9: 23 AM CDT documented as of this encounter Progress Notes * Lisandra Auguste, 3D DESIGNER - 02/03/2021 7:40 AM CDT Infectious Disease Return Visit Patient Name: Beka Nichols [facility] INFECTIOUS DISEASES [address] [place] [phone] Subjective Chief complaint of CMV viremia HPI: [...] starting treatment due to difficulty obtaining medication). Interval History: Telephone visit completed with patient today who reports doing well. He remains on valganciclovir for the past 3-4 weeks and is tolerating well without adverse effects. He has no fevers, chills, night sweats, nausea, vomiting, or diarrhea. Energy levels and appetite are doing well. He has not had labs in several months but will follow up with oncology on Wednesday with labs at appointment. He is r eceiving subcutaneous IgG infusions every 4 weeks. He reports compliance with all medications ROS: Review of Systems Constitutional: Negative for activity change, appetite change, chills, diaphoresis, fatigue, fever and unexpected weight change. Gastrointestinal: Negative for abdominal pain, diarrhea, nausea and vomiting. Musculoskeletal: Negative for arthralgias and myalgias. Skin: Negative for rash. Objective Medical Conditions Diagnosis ??? Cytomegalovirus infection (CMS/HCC) ??? History of liver transplant (CMS/HCC) ??? Idiopathic thrombocytopenic purpura (CMS/HCC) ??? 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 Autoimmune hepatitis (CMS/HCC) ??? Hypogammaglobulinemia (CMS/HCC) ??? Neutropenia associated with autoimmune disease (CMS/HCC) ??? Immunocompromised patient (CMS/HCC) ??? Lymphadenopathy ??? detention current use of immunosuppressive drug ??? Cytomegalovirus (CMV) viremia (CMS/HCC) ??? Fever ??? Elevated LFTs ??? On antiviral therapy ??? Myalgia Allergies: Patient has no known allergies. HOME MEDICATIONS : IgG/hyaluronidase,recombinant (HYQVIA SUBQ) tacrolimus (PROGRAF) 0.5 mg capsule valGANciclovir (VALCYTE) 450 mg tablet Lab/Microbiology/Radiology/Diagnostic Review: Laboratory: Lab Results Component Value Date WBC 6.9 01/17/2021 HGB 14.1 01/17/2021 HCT 40.3 01/17/2021 MCV 93.9 01/17/2021 LABPLAT 176 01/17/2021 Lab Results Component Value Date NEUTROABS 1.5 (L) 01/17/2021 Lab Results Component Value Date GLUCOSE 106 11/06/2020 CALCIUM 7.7 (L) 11/06/2020 SODIUM 140 11/06/2020 POTASSIUM 4.0 11/06/2020 CO2 29 11/06/2020 CHLORIDE 104 11/06/2020 BUNSER 11 11/06/2020 CREATININE 0.85 11/06/2020 Lab Results Component Value Date ALT 64 (H) 11/06/2020 AST 69 (H) 11/06/2020 ALKPHOS 431 (H) 11/06/2020 BILITOT 0.5 11/06/2020 Lab Results Component Value Date CMVDNAIUML 2,127 11/06/2020 CMVDNAIUML 2,916 10/02/2020 CMVDNAIUML 2,869 06/12/2020 CMVDNAIUML 590 05/14/2020 CMVDNAIUML 1,364 04/27/2020 Assessment/Plan 26 y.o. male with hx of refractory ITP s/p splenectomy 2012, autoimmune hepatitis s/p orthotopic liver transplant 03/30/2009, c/b PTLD (c-Myc, EBV +) s/p R-CHOP x 1 (2016), DA-EPOCH-R x 5 (09/2017-12/2017) with IT MTX w/ C3 10/2017, achieving CR in 12/2017, now with persistent quantifiable CMV viremia since 06/2019. Received IV valganciclovir 02/15-04/03/20 with continued low level viremia. Started on IgG treatments 10/2020 and restarted PO valcyte 12/2020. ? Cytomegalovirus infection (CMS/HCC) - Patient reports doing well with no [...] 1. Cytomegalovirus infection, unspecified cytomegaloviral infection type (CMS/HCC) Lisandra Ramirez the Nurse Practitioner, have reviewed and examined this patient with thesupervising MD present in the office suite, Dr. Duncan. This was a telemedicine visit with Beka Nichols and his mother which took place via Telephone. During the visit, I was located in the office and the patient was located at home in the [facility] [place]. The patient visit started at 0741 and ended at 0753. My total encounter time on 02/03/2021 was 30 minutes which was spent in [...] or video visit during the [facility] emergency[facility] explained to them. After being given an opportunity to ask questions about and discuss this type of visit, they verbally consented to proceeding with the telephone/video visit and understand thatthis service replaces an office visit. documented in this encounter Miscellaneous Notes * Assessment & Plan Note - Lisandra Auguste NP - 02/03/2021 2:32 PM CDT Associated Problem(s): Cytomegalovirus infection (HCC) - Patient reports doing well with no [...] (ABNORMAL) Cytomegalovirus (CMV) DNA PCR, quantitative Blood (02/05/2021 8:26 AM CDT) [facility] CMV DNA Detected( A) [facility] Comment: Interpretive Data: The quantifiable range of this assay is 137 IUnits/mL to 9,100,000 IUnits/mL (2.14 log IUnits/mL to 6.96 log IUnits/mL). Testing was performed by the NIA AmpliPrep/NIA TaqMan CMV Test ([employer] Testing performed at [facility] Current interpretive data was last revised on 17. CMV DNA IU/mL 142 IUnits/mL [facility] CMV DNA log IU/mL 2.15 log IUnits/mL [facility] Blood specimen (specimen) 02/05/2021 8:26 AM CDT 02/05/2021 9:22 AM CDT Narrative [facility] - 02/05/2021 8:47 PM CDT Please drawn with oncology labs 02/05/21 us Lisandra Auguste 3D DESIGNER LAB MICROBIOLOGY - GENERA L ORDERABLES Final Result 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) Hypogammaglobulinemia (HCC) Unspecified hypogammaglobulinemia Cytomegalovirus infection, unspecified cytomegaloviral infection type (HCC) History of liver transplant (CMS/HCC) (HCC) Liver replaced by transplant documented in this encounter Care Teams Ice Cream Dipper Relationship Specialty Start Date End Date Guero Colunga DO PCP - General Internal Medicine 03/22/19 04/18/23 Amber Montesinos, SHAILESH Principal Network Engineer Transplant 11/17/19 Jil Duncan MD Consulting Physician Infectious Diseases 01/10/20 Anita Gillespie MD Medical Oncologist/[employer] Medical Oncology 10/07/20 documented as of this encounter
--- OUTSIDE RECORDS SUMMARY | 2024-10-28 06:17 | XMS_ITS | Encounter Summary ---
Author Organization [facility] Healthcare Address [address] [place] [address] Care Team Providers Care Director Work Name Role Phone Guero Colunga Primary Care Provider [phone] Amber Montesinos RN Unavailable [phone] Jil Duncan MD Unavailable [phone] Anita Gillespie MD Unavailable [phone] Encounter Details Date Type Department Care Team (Late st Contact Info) Description 01/17/2021 4:20 PM CDT Lab [facility] Advanced Medicine [facility] ([facility]) [address] [place] [phone] 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); History of liver transplant (CMS/HCC) Social History Tobacco Use Types Packs/Day Years Used Date Smoking Tobacco: Never Smokeless Tobacco: Current Chew Alcohol Use Standard Drinks/Week Comments Yes 0 (1 standard drink = 0.6 oz pur e alcohol) occassional Sex and Gender Information Value Date Recorded Sex Assigned at Not on file Legal Sex Male 6:28 AM REGIONAL FORESTER Gender Identity Not on file Sexual Orientation Straight 08/22/2021 9: 23 AM CDT documented as of this encounter Plan of Treatment Scheduled Procedures Name Priority Associated Diagnoses Date/Ti me COLONOSCOPY Encounter for screening for colorectal cancer in high risk patient Family history of rectal cancer documented as of this encounter Procedures Procedure Name Priority Date/Time Associated Diagnosis Comments DIFFERENTIAL AUTO Routine 01/17/2021 4:2 1 PM CDT 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) ANTI-NEUTROPHILIC CYTOPLASMIC ANTIBODY (ANCA) WITH REFLEX TO MPO AND PR3 ABS Routine 01/17/2021 4:21 PM CDT 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) CBC WITH AUTO DIFFERENTIAL Routine 01/17/2021 4:21 PM CDT 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1 0.0 - 0.1 K/cumm [facility] Neutrophil pct 22.3 % [facility] Comment: Interpretive Data Percent cell count reference ranges are not reported, since discordance with absolute values may lead to misinterpretation of CBC data. Current Interpretive Data was last revised on 2018. Imm gran pct 0.1 % [facility] Comment: Interpretive Data Percent cell count reference ranges are not reported, since discordance with absolute values may lead to misinterpretation of CBC data. Current Interpretive Data was last revised on 2018. Lymphocyte pct 63.0 % [facility] Comment: Interpretive Data Percent cell count reference ranges are not reported, since discordance with absolute values may lead to misinterpretation of CBC data. Current Interpretive Data was last revised on 2018. Monocyte pct 10.2 % [facility] Comment: Interpretive Data Percent cell count reference ranges are not reported, since discordance with absolute values may lead to misinterpretation of CBC data. Current Interpretive Data was last revised on 2018. Eosinophil pct 3.2 % [facility] Comment: Interpretive Data Percent cell count reference ranges are not reported, since discordance with absolute values may lead to misinterpretation of CBC data. Current Interpretive Data was last revised on 2018. Basophil pct 1.2 % [facility] Comment: Interpretive Data Percent cell count reference ranges are not reported, since discordance with absolute values may lead to misinterpretation of CBC data. Current Interpretive Data was last revised on 2018. Blood specimen (specimen) 01/17/2021 4:21 PM CDT 01/17/2021 4:34 PM CDT us Jan Bailon MD LAB BLOOD ORDERABLES Final Res ult [facility] [place] [address] * Anti-Neutrophilic Cytoplasmic Antibody (ANCA) with Reflex to MPO and PR3 Abs (01/17/2021 4:21 PM CDT) ANCA Negative [facility] Blood specimen (specimen) 01/17/2021 4:21 PM CDT 01/17/2021 4:33 PM CDT us Jan Bailon MD LAB BLOOD ORDERABLES Final Res ult Performing Organization Address City/[facility]/ZIP Co de Phone Number [facility] Department [place] [address] * (ABNORMAL) CBC with auto differential (01/17/2021 4:21 PM CDT) [facility] WBC 6.9 3.8 - 9.9 K/cumm [facility] Hgb 14.1 13.0 - 17.5 g/dL [facility] Hct 40.3 38.9 - 50.3 % [facility] Plt 176 150 - 400 K/cumm [facility] MPV 10.9 9.1 - 12.3 fL [facility] RBC 4.29(L) 4.30 - 5.80 M/cumm [facility] MCV 93.9 81.3 - 96.4 fL [facility] MCH 32.9 27.1 - 33.3 pg [facility] MCHC 35.0 32.3 - 35.7 g/dL [facility] RDW CV 15.8(H) 11.1 - 14.9 % [facility] RDW SD 55.1(H) 35.7 - 48.1 fL [facility] NRBC abs 0.00 0.00 - 0.01 K/cumm [facility] Blood specimen (specimen) 01/17/2021 4:21 PM CDT 01/17/2021 4:34 PM CDT Jan Bailon MD LAB BLOOD ORDERABLES Final Res ult Performing Organization Address City/[facility]/ZIP Co de Phone Number [facility] [place] [address] * IgE (01/17/2021 4:17 PM CDT) [facility] IgE <2.0 1.0 - 100.0 IUnits/mL [facility] Blood specimen (specimen) 01/17/2021 4:17 PM CDT 01/17/2021 4:41 PM CDT Jan Bailon MD LAB BLOOD ORDERABLES Final Res ult [facility] [place] [address] * (ABNORMAL) Aldolase (01/17/2021 4:17 PM CDT) Aldolase 11.5(H) 0.1 - 8.0 Units/L [facility] Blood specimen (specimen) 01/17/2021 4:17 PM CDT 01/17/2021 4:41 PM CDT Jan Bailon MD LAB BLOOD ORDERABLES Final Res ult Performing Organization Address [facility] [place] [address] * Creatine kinase (CK), total (01/17/2021 4:17 PM CDT) CK 110 40 - 300 Units/L [facility] Blood specimen (specimen) 01/17/2021 4:17 PM CDT 01/17/2021 4:41 PM CDT Jan Bailon MD LAB BLOOD ORDERABLES Final Res ult Performing Organization Address [facility] [place] [place] [address] documented in this encounter Visit Diagnoses Diagnosis 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
--- OUTSIDE RECORDS SUMMARY | 2024-10-28 06:17 | XMS_ITS | Encounter Summary ---
Author Organization [facility] Address [address] [facility] [address] [place] [address] Phone Care Team Providers Care Beater Operator Name Role Phone Guero Colunga DO Primary Care Provider Amber Montesinos RN Unavailable [phone] Jil Duncan MD Unavailable [phone] Anita Gillespie MD Unavailable [phone] Encounter Details Date Type Department Care Team (Late st Contact Info) Description 03/11/2021 Telephone [facility] Infectious Diseases [address] [place] [address] [address] [place] [address] Lisandra Auguste NP [address] [place] [address] Social History Tobacco Use Types Packs/Day Years Used Date Smoking Tobacco: Never Smokeless Tobacco: Current Chew Alcohol Use Standard Drinks/Week Comments Yes 0 (1 standard drink = 0.6 oz pur e alcohol) occassional Sex and Gender Information Value Date Recorded Sex Assigned at Not on file Legal Sex Male 6:28 AM 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 Patient's mother, Brooklynn, notified. No ID follow up needed but they will call with any issues. documented in this encounter Plan of Treatment [...] 2 (two) times a day Therapy completed 03/11/2021 documented as of this encounter Care Teams Beater Operator Relationship Specialty Start Date End Date Guero Colunga DO PCP - General Internal Medicine 03/22/19 04/18/23 Amber Montesinos, RN Motor Assembler Transplant 11/17/19 Jil Duncan MD Consulting Physician Infectious Diseases 01/10/20 Anita Gillespie MD Medical Oncologist/Painting Technician Medical Oncology 10/07/20 documented as of this encounter
--- OUTSIDE RECORDS SUMMARY | 2024-10-28 06:17 | XMS_ITS | Encounter Summary ---
Author Organization [facility] Healthcare Address [address] [place] [address] Care Team Providers Care Crusher Dry Ground Mica Name Role Phone Guero Colunga DO Primary Care Provider [phone] Amber Montesinos RN Unavailable [phone] Jil Duncan MD Unavailable [phone] Anita Gillespie MD Unavailable [phone] Encounter Details Date Type Department Care Team (Late st Contact Info) Description 05/12/2021 Telephone [facility] Transplant Liver [address] [facility] [phone] [place] [address] Amber Montesinos RN Social History Tobacco Use Types Packs/Day Years Used Date Smoking Tobacco: Never Smokeless Tobacco: Current Chew Alcohol Use Standard Drinks/Week Comments Yes 0 (1 standard drink = 0.6 oz pur e alcohol) occassional Sex and Gender Information Value Date Recorded Sex Assigned at Not on file Legal Sex Male 6:28 AM FOOD SCIENTIST Gender Identity Not on file Sexual Orientation Straight 08/22/2021 9: 23 AM CDT documented as of this encounter Ordered Prescriptions Prescription Sig Dispense Quantity Refills Last Filled Start Date End Date ursodioL (ACTIGALL) 300 mg capsule Take 1 pill nightly with dinner for 1 week then 2 pills nightly with dinner until told otherwise 53 capsule 2 05/12/2021 1 ursodioL (ACTIGALL) 300 mg capsule Take 1 pill nightly with dinner for 1 week then 2 pills nightly with dinner until told otherwise 49 capsule 2 05/12/2021 documented in this encounter Miscellaneous Notes * Telephone Encounter - Amber Vargas RN - 05/12/2021 12:57 PM CDT Images from the original note were not included. Labs reviewed with Dr. Gresham. Plan to start patient on ursodiol. See below Placed call to patient and spoke to mom. Reviewed new medication with mother. Discussed rationale of why we are starting this. Reviewed dose and instructions for taking/common side effects. Sent to [facility] specialty for dorman check and coming back with copay of $20. Mom stating she can pick it up at their local [facility]. Sent script to local [facility] but they are unable to process since claim here. Asked [facility] to back out of claim so patient can picking tech at [facility]. Left VM for mom letting her know that [facility] has script and to please call coordinator back if there is any issue with the copay. Asked for him to please get labs in one month per normal standing order. documented in this encounter Plan of Treatment Scheduled Procedures Name Priority Associated Diagnoses Date/Ti in COLONOSCOPY Encounter for screening for colorectal cancer in high risk patient Family history of rectal cancer documented as of this encounter Visit Diagnoses Not on filedocumented in this encounter Discontinued Medications Medication Sig Discontinue Reason Start Date End Da te ursodioL (ACTIGALL) 300 mg capsule Take 1 pill nightly with dinner for 1 week then 2 pills nightly with dinner until told otherwise 05/12/2021 05/12/2021 documented as of this encounter Care Teams Crusher Dry Ground Mica Relationship Specialty Start Date End Date Guero Colunga DO PCP - General Internal Medicine 03/22/19 04/18/23 Amber Montesinos, SHAILESH Sales Associate Key Holder Transplant 11/17/19 Jil Duncan MD Consulting Physician Infectious Diseases 01/10/20 Anita Gillespie MD Medical Oncologist/Merchandise Complaint Adjuster Medical Oncology 10/07/20 documented as of this encounter
--- OUTSIDE RECORDS SUMMARY | 2024-10-28 06:17 | XMS_ITS | Encounter Summary ---
Author Organization [facility] Healthcare Address [address] [place] [address] Care Team Providers Care High School Professional Name Role Phone Guero Colunga Primary Care Provider [phone] Amber Montesinos RN Unavailable [phone] Jil Duncan MD Unavailable [phone] Anita Gillespie MD Unavailable [phone] Encounter Details Date Type Department Care Team (Late st Contact Info) Description 03/27/2021 Telephone [facility] Transplant Liver [address] [facility] [address] [phone] [place] [address] Tarik Perry Social History Tobacco Use Types Packs/Day Years Used Date Smoking Tobacco: Never Smokeless Tobacco: Current Chew Alcohol Use Standard Drinks/Week Comments Yes 0 (1 standard drink = 0.6 oz pur e alcohol) occassional Sex and Gender Information Value Date Recorded Sex Assigned at Not on file Legal Sex Male 6:28 AM BAR EXAMINER Gender Identity Not on file Sexual Orientation Straight 08/22/2021 9: 23 AM CDT documented as of this encounter Miscellaneous Notes * Telephone Encounter - Tarik Perry - 03/27/2021 1:53 PM CDT [facility] transplant medication alert saved to media documented in this encounter Plan of Treatment Scheduled Procedures Name Priority Associated Diagnoses Date/Ti me COLONOSCOPY Encounter for screening for colorectal cancer in high risk patient Family history of rectal cancer documented as of this encounter Visit Diagnoses Not on filedocumented in this encounter Care Teams High School Professional Relationship Specialty Start Date End Date Guero Colunga DO PCP - General Internal Medicine 03/22/19 04/18/23 Amber Montesinos, SHAILESH Preanalytics Team Lead Transplant 11/17/19 Jil Duncan MD Consulting Physician Infectious Diseases 01/10/20 Anita Gillespie MD Medical Oncologist/Staffing Analyst Medical Oncology 10/07/20 documented as of this encounter
--- OUTSIDE RECORDS SUMMARY | 2024-10-28 06:17 | XMS_ITS | Encounter Summary ---
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 [address] [facility] [place] [address] Referral ID Status Reason Start Date Expiration Date Visits Re quested Visits Authorized [id number] Closed 01/17/2021 02/16/2022 1 1 Encounter Details Date Type Department Care Team (Latest Contact Info) Description 02/05/2021 9:50 AM CDT - 02/05/2021 11:59 PM CDT Hospital Encounter [facility] [address] [place] [address] Jan Bailon MD [address] [place] [address] 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) Discharge Disposition: Discharge to home or self care Social History Tobacco Use Types Packs/Day Years Used Date Smoking Tobacco: Never Smokeless Tobacco: Current Chew Alcohol Use Standard Drinks/Week Comments Yes 0 (1 standard drink = 0.6 oz pur e alcohol) occassional Sex and Gender Information Value Date Recorded Sex Assigned at Not on file 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 Gender Identity Not on file Sexual Orientation Straight 08/22/2021 9: 23 AM CDT documented as of this encounter Medications at Time of Discharge IgG/hyaluronidase ,recombinant (HYQVIA SUBQ) Inject under the skin 12/27/2021 tacrolimus (PROGRAF) 0.5 mg capsule Take 1 capsule (0.5 mg total) by mouth 2 (two) times a day 60 capsule 11 05/27/2020 06/25/2021 valGANciclovir (VALCYTE) 450 mg tabletIndications :cytomegalovirus disease Take 2 tablets (900 mg total) by mouth 2 (two) times a day 120 tablet 11/13/2020 03/06/2022 valGANciclovir (VALCYTE) 450 mg tablet Take 900 mg by mouth 2 (two) times a day 03/11/2021 documented as of this encounter Discharge Disposition [...] CONTRAST Schedule Routine, Read Routine (OP Routine) 02/05/2021 10:45 AM CDT 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) documented in this encounter Results * CT Chest High Resolution WO Contrast (02/05/2021 10:45 AM CDT) Anatomical Region Laterality Modality Chest N/A Computed Tomogra phy 02/05/2021 11:3 1 AM CDT Impressions 02/05/2021 8:33 PM CDT 1. Unchanged bulky lymphadenopathy throughout the chest consistent with patient's known post transplant lymphoproliferative disorder. 2. Interval improvement in scattered groundglass opacities favored represent resolving infectious process such as histoplasmosis or resolving nodular organizing pneumonia. Dictated by: Philip Jonas M.D. The radiology attending physician has personally reviewed this study, and had reviewed and/or edited this written report and agrees with it. Electronically signed by: Severiano Mason M.D. Narrative 02/05/2021 8:33 PM CDT EXAMINATION: ??Computed tomography of the chest without intravenous contrast HISTORY: 26-year-old male with posttransplant lymphoproliferative disorder and shortness of breath TECHNIQUE: ??Transaxial computed tomographic images of the chest were obtained without intravenous contrast according to the high-resolution protocol. COMPARISON: PET CT 10/02/[address] chest abdomen pelvis 12/28/2018 FINDINGS: ?? There is bulky bilateral supraclavicular, bilateral axillary, mediastinal and bilateral hilar lymphadenopathy, similar to prior PET/CT. There are subtle, scattered ground glass opacities which are smaller and less numerous than on prior exam. No evidence of fibrosis. No pleural effusion or pneumothorax. Heart size is normal. No pericardial effusion. Aorta and its branches are normal in course and contour. Bone windows demonstrate no fractures or suspicious osseous lesions. Visualized portions of the abdomen demonstrate postoperative changes from liver transplantation. Procedure Note Severiano Maosn MD - 02/05/2021 EXAMINATION: Computed tomography of the chest without intravenous contrast HISTORY: 26-year-old male with posttransplant lymphoproliferative disorder and shortness of breath TECHNIQUE: Transaxial computed tomographic images of the chest were obtained without intravenous contrast according to the high-resolution protocol. COMPARISON: PET CT 10/02/[address] chest abdomen pelvis 12/28/2018 FINDINGS: There is bulky bilateral supraclavicular, bilateral axillary, mediastinal and bilateral hilar lymphadenopathy, similar to prior PET/CT. There are subtle, scattered ground glass opacities which are smaller and less numerous than on prior exam. No evidence of fibrosis. No pleural effusion or pneumothorax. Heart size is normal. No pericardial effusion. Aorta and its branches are normal in course and contour. Bone windows demonstrate no fractures or suspicious osseous lesions. Visualized portions of the abdomen demonstrate postoperative changes from liver transplantation. IMPRESSION: 1. Unchanged bulky lymphadenopathy throughout the chest consistent with patient's known post transplant lymphoproliferative disorder. 2. Interval improvement in scattered groundglass opacities favored represent resolving infectious process such as histoplasmosis or resolving nodular organizing pneumonia. Dictated by: Philip Jonas M.D. The radiology attending physician has personally reviewed this study, and had reviewed and/or edited this written report and agrees with it. Electronically signed by: Severiano Mason M.D. 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
--- OUTSIDE RECORDS SUMMARY | 2024-10-28 06:17 | XMS_ITS | Encounter Summary ---
Author Organization [facility] Address [address] [place] [address] Phone Care Team Providers Care Fruit Culler Name Role Phone Guero Colunga DO Primary Care Provider [phone] Amber Montesinos RN Unavailable [phone] Jil Duncan MD Unavailable [phone] Anita Gillespie MD Unavailable [phone] Encounter Details Date Type Department Care Team (Late st Contact Info) Description 02/06/2021 Telephone [facility] [address] [facility] 7th [place] [address] [place] [phone] Samreen Greene RN Social History Tobacco Use Types Packs/Day Years Used Date Smoking Tobacco: Never Smokeless Tobacco: Current Chew Alcohol Use Standard Drinks/Week Comments Yes 0 (1 standard drink = 0.6 oz pur e alcohol) occassional Sex and Gender Information Value Date Recorded Sex Assigned at Not on file 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 She shared that they have the opportunity for Beka to get the Spencer and Spencer vaccine this Wednesday. He is due for his IVIG that day as well. After discussion with Dr. Gillespie, will have him proceed with both on that day. documented in this encounter Plan of Treatment Scheduled Procedures Name Priority Associated Diagnoses Date/Ti me COLONOSCOPY Encounter for screening for colorectal cancer in high risk patient Family history of rectal cancer documented as of this encounter Visit Diagnoses Not on filedocumented in this encounter Care Teams Fruit Culler Relationship Specialty Start Date End Date Guero Colunga DO PCP - General Internal Medicine 03/22/19 04/18/23 Amber Montesinos RN Seat Cover Cutter Transplant 11/17/19 Jil Duncan MD Consulting Physician Infectious Diseases 01/10/20 Anita Gillespie MD Medical Oncologist/Steam Pressure Chamber Operator Medical Oncology 10/07/20 documented as of this encounter
--- OUTSIDE RECORDS SUMMARY | 2024-10-28 06:17 | XMS_ITS | Encounter Summary ---
Author Organization [facility] Address [address] [place] [address] Phone Care Team Providers Care Roll Slicing Machine Tender Name Role Phone Guero Colunga DO Primary Care Provider [phone] Amber Montesinos RN Unavailable [phone] Jil Duncan MD Unavailable [phone] Anita Gillespie MD Unavailable [phone] Reason for Referral * MRI/CAT/PET Scan (Routine) - Closed Specialty Diagnoses / Procedures Referred By Contac t Referred To Contact Radiology Diagnoses Pulmonary nodules Procedures CT Chest High Resolution WO Contrast Jan Bailon MD [address] [place] [address] Phone: tel: fax: [facility] [address] [place] [address] Referral ID Status Reason Start Date Expiration Date Visits Re quested Visits Authorized [id number] Closed 08/22/2021 09/21/2022 1 1 Encounter Details Date Type Department Care Team (Late st Contact Info) Description 08/22/2021 2:30 PM CDT Office Visit [facility] [address] [facility] 8th [address] [place] [id number] Jan Bailon MD [address] [place] [address] Pulmonary nodules (Primary Dx) Social History Tobacco Use Types Packs/Day Years Used Date Smoking Tobacco: Never Smokeless Tobacco: Current Chew Alcohol Use Standard Drinks/Week Comments Yes 0 (1 standard drink = 0.6 oz pur e alcohol) occassional Sex and Gender Information Value Date Recorded Sex Assigned at Not on file Legal Sex Male 6:28 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 Gender Identity Not on file Sexual Orientation Straight 08/22/2021 9: 23 AM CDT documented as of this encounter Last Filed Vital Signs Vital Sign Reading Time Taken Comments Blood Pressure 100/64 08/22/2021 2:14 PM CDT Pulse 78 08/22/2021 2:14 PM CDT Temperature 36.8 ??C (98.2 ??F) 08/22/2021 2:14 PM CD T Respiratory Rate 18 08/22/2021 2:14 PM CDT Oxygen Saturation 98% 08/22/2021 2:14 PM CDT room air Inhaled Oxygen Concentration - - Weight 56.7 kg (125 lb) 08/22/2021 2:14 PM CDT Height 170.2 cm (5' 7 ) 08/22/2021 2:14 PM CDT Body Mass Index 19.58 08/22/2021 2:14 PM CDT documented in this encounter Progress Notes * Obinna Donahue MD - 08/22/2021 12:00 AM CDT PATIENT NAME: ADI NICHOLS : 1995 JUSTEN: 08/22/2021 PROBLEM LIST: 1. 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 2. 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 3. Pulmonary embolism in October 2017. 4. CMV viremia. 5. PTLD, EBV positive, status post EPOCH-R in 2016 to 2017. Ongoing diffuse lymphadenopathy, thoughDecember 2018 left axillary biopsy negative. 6. Hepatic abscess, status post treatment. 7. 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 8. Arthralgias and myalgias to the upper and lower extremities, resolved following IVIG initiation.Ongoing autoimmune workup thus far unrevealing. Patient following with Rheumatology here. INTERVAL HISTORY: Mr. Nichols returns for follow-up today of his multiple pulmonary nodules and was last seen in clinicon 01/17/2021. In the interim since last being seen, the patient has been seen by his roller leveler Dr. Hurley on 2 different occasions given a previously positive SSA-52 kDa antibody on his MyoMarkerpanel, this was recent with results showing continued elevated levels of the anti-SSA-52 kDa and also a positive anti-KU antibody on the second MyoMarker panel. At this time, an aldolase was also recent and found to be continued to be elevated at 12.5, as well as an REEMA level which was elevated at 131. Per Rheumatology notes, there is some suspicion as to whether his diffuse joint pains and neuromuscular problems could be related to an underlying diagnosis of sarcoidosis. Rheumatology has been attempting to evaluate the patient at a time when he is symptomatic, but has unfortunately been unable to do so as of yet. The patient responds relatively dramatically to his IVIG infusions with his symptoms returning to baseline immediately after these. It was attempted to prolong the amount of time in between his infusions and see him in the Rheumatology office in the interim, but this was unsuccessful as the patient was unable to tolerate his symptoms and needed to undergo IVIG infusion. The patient's mother states that he was walking around like a zombie and had significant fatigue up until the point when he got his IVIG infusion. The patient states that he did not feel any shortness of breath during this time and did not have return of his arthralgias or arthritides. He denies any chest pain, fevers, chills, night sweats, or other infectious symptoms during this time. The only symptom he could identify was a general malaise and feeling very fatigued. He would have alternating periods of hypersomnolence where he would sleep excessively for 2 days and then go back to a normal sleep schedule during this time. All of these promptly resolved a day or 2 after receiving his most recent IVIG infusion. Rheumatology states that they are now attempting to get him in on October 01 at which time he would also be seeing Dr. Gillespie with Oncology and his liver transplant team, and they will attempt to stretch his next IVIG appointment out to later than that date. More recently, after receiving his IVIG infusion, the patient states that he feels back to his baseline and has had no further rheumatologic or fatigue symptoms. 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 He has been exposed to soybean dust in the interim and does occasionally develop a cough and a upper respiratory/sinus infection symptomatology with that, but this promptly resolves with course of antibiotics from Dr. Gillespie's office. Most recently, he completed a course of Augmentin with resolution of any of his sinus symptoms. REVIEW OF SYSTEMS: A complete review of systems was conducted and was negative except as per HPI. MEDICATIONS: 1. Tacrolimus 0.5 mg b.i.d. 2. IVIG, last received a week ago. 3. Valganciclovir 450 mg. PHYSICAL EXAM: Vitals: Temperature 36.8 degrees Celsius, HR 78, BP 100/64, SpO2 98% on room air, weight 125 pounds. General: Seated comfortably. No acute distress. HEENT: NC/AT, EOMI, CHASE, MMM, OP clear. Neck: There is some slight scattered lymphadenopathy of the bilateral cervical chains. Chest: Clear to auscultation bilaterally. No wheezes, rales, or rhonchi. Cardiac: Regular rate and rhythm. No murmurs, rubs, or gallops. Abdomen: Soft, nontender, nondistended. Normoactive bowel sounds. Extremities: Warm, well perfused. No clubbing, cyanosis, or edema. Neuro: Cranial nerves II through XII are grossly intact. No focal deficits. Psych: Appropriate mood and affect. DATA: 1. Spirometry dated today with FVC of 2.99 L (60%), decreased from 3.31 L previously; FEV1 of 2.42 L (58%), decreased from 2.78 L previously; FEV1/FVC ratio of 0.81, MVV of 72% predicted, MIP of 57% predicted, and MEP of 39% predicted. Consistent with a worsening of what appears to be restrictive ve ntilatory pattern and evidence of respiratory muscle weakness based on MVV, MIP, and MEP. Would need to get lung volumes to confirm restrictive pattern. 2. Repeat MyoMarker aldolase and REEMA level as per HPI. 3. High-res CT dated 02/05/2021 was previously discussed and showed some improving small ground-glass nodules. On our review of the CT today, it does appear that these are in a slightly perilymphaticdistribution and on discussion with Radiology colleagues, the previous read was certainly consistent with a possible infectious source such as a histoplasmosis, but could also be consistent with a granulomatous process such as sarcoidosis. ASSESSMENT AND PLAN: 1. Lung nodules and mediastinal/hilar lymphadenopathy. The differential includes a granulomatous process versus infectious process versus related to his PTLD versus possibly related to some other inflammatory or vasculitic process. ANCA and IgE levels were normal at a prior visit making an etiologysuch as EGPA less likely. It is certainly possible that these were secondary to resolving infectious process such as histoplasmosis, although his histo serum antibodies as well as urine antigen have been negative. Rheumatology is following and is also considering sarcoidosis as a possible etiology of his articular symptoms and his general fatigue and malaise. His imaging findings would be consistent with sarcoidosis and his elevated REEMA level would support this diagnosis, although the sensitivity and specificity of this test is lacking. We will discuss the patient's case with our sarcoidosis experts and coordinate with Rheumatology. 2. We will repeat a high-res CT chest to follow the progress of his pulmonary nodules. 3. Also concerning are the patient's continued symptoms of weakness and his evidence of respiratorymuscle weakness as well as worsening of his PFTs on spirometry today. We will reach out to our colleagues with Neurology and Neuromuscular and see if they believe any further biopsies would be warranted at this time. 4. Allergic rhinitis. The patient should continue with his Flonase. 5. We will have the patient return to clinic in 4 months with spirometry at that time or sooner if needed. ELECTRONICALLY SIGNED - 08/26/2021 03:07 PM Obinna Donahue M.D. Fellow I have seen and examined the patient and agree with the findings and plan of care as outlined by Dr. Obinna Donahue MD. I have edited the note. ELECTRONICALLY SIGNED - 08/28/2021 01:32 PM Jan Bailon M.D. Tierce Fillerfingerprint expert BTL/MS/martha cc: ELNO AGUSTIN MD [address] [facility] [address] [place] [address] / ANITA GILLESPIE M.D. [address] [place] [id number] GARRY FRANKS MD [address] [facility] [address] [place] [address] documented in this encounter Plan of Treatment Scheduled Procedures Name Priority Associated Diagnoses Date/Ti me COLONOSCOPY Encounter for screening for colorectal cancer in high risk patient Family history of rectal cancer documented as of this encounter Results * CT Chest High Resolution WO Contrast (10/01/2021 12:41 PM TRANSFORMATION SPECIALIST) Anatomical Region Laterality Modality Chest N/A Computed Tomogra phy 10/01/2021 1:04 PM TRANSFORMATION SPECIALIST Impressions 10/01/2021 1:04 PM TRANSFORMATION SPECIALIST 1. Worsening extensive lymphadenopathy throughout the chest, likely worsening post transplant lymphoproliferative disorder. 2. New small scattered groundglass nodules, most pronounced in right lower lobe, likely infectious. Electronically signed by: Сергей Kong M.D. 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
--- OUTSIDE RECORDS SUMMARY | 2024-10-28 06:17 | XMS_ITS | Encounter Summary ---
Author Organization [facility] Address [address] [place] [address] Phone Care Team Providers Care Ed Case Manager Name Role Phone Guero Colunga DO Primary Care Provider [phone] Amber Montesions RN Unavailable [phone] Jil Duncan MD Unavailable [phone] Anita Gillespie MD Unavailable [phone] Reason for Visit * Consultation (Routine) - Closed Specialty Diagnoses / Procedures Referred By Contac t Referred To Contact Rheumatology Diagnoses Autoimmune disease (CMS/HCC) (HCC) Jan Bailon MD [address] [place] [address] Phone: tel: fax: [facility] (All Locations) Referral ID Status Reason Start Date Expiration Date V isits Requested Visits Authorized [id number] Closed Specialty Services Required 05/07/2021 03/15/2022 99 99 Encounter Details Date Type Department Care Team (Late st Contact Info) Description 06/18/2021 8:00 AM CDT Telemedicine [facility] Rheumatology [address] 5th [place] [address] [place] [address] Tabitha Hurley MD [address] [place] [address] Arthralgia of both lower legs (Primary Dx); Hilar lymphadenopathy; Abnormal laboratory 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 Social History Tobacco Use Types Packs/Day Years Used Date Smoking Tobacco: Never Smokeless Tobacco: Current Chew Alcohol Use Standard Drinks/Week Comments Yes 0 (1 standard drink = 0.6 oz pur e alcohol) occassional Sex and Gender Information Value Date Recorded Sex Assigned at Not on file 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 Gender Identity Not on file Sexual Orientation Straight 08/22/2021 9: 23 AM CDT documented as of this encounter Last Filed Vital Signs Vital Sign Reading Time Taken Comments Blood Pressure - - Pulse - - Temperature - - Respiratory Rate - - Oxygen Saturation - - Inhaled Oxygen Concentration - - Weight 59 kg (130 lb) 06/18/2021 7:37 AM CDT Height 172.7 cm (5' 8 ) 06/18/2021 7:37 AM CDT Body Mass Index 19.77 06/18/2021 7:37 AM CDT documented in this encounter Patient Instructions * Patient Instructions* Tabitha Hurley MD - 06/18/2021 8:00 AM CDT Delay hyqvia by 1 weeks Follow up in clinic 07/23/2021 11:40 AM for evaluation during the week you do not receive IVIG No clear diagnosis yet But hilar LAD and elevated REEMA levels with joint pains may be leading to sarcoid. documented in this encounter Progress Notes * Tabitha Hurley MD - 06/18/2021 8:00 AM CDT Subjective/Objective Patient ID: Beka Nichols is a 26 y.o.[place]. This was a telemedicine visit with Beka Nichols and mom which took place via Real-time video connection (InTouch, Zoom or similar). During the visit, I was located in the office and [place]. The patient visit started at 8:01 and ended at 8:26. My total encounter time on 06/18/2021 was 30 minutes which was spent in [...] understand thatthis service replaces an office visit. First follow up for arthralgias and + SSA-52kd antibodies. 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 In 09/2020 prior to starting IVIG he was noted to have possible muscle weakness/ myositis and myositis panel revealed [id number] He was started on hyqvia SQ (IVIG) 09/2020 for the joint pains as it was felt the pains may be autoimmune in nature. Joint pains improved In May Beka was pain free and had no weakness. He denied sicca symptoms, rashes, fevers, weight loss, raynauds, photosensitivity I recommended repeating his labs which still revealed + SSA-52kd, weak positive Ku antibodies, and elevated ESR at 49. His LFTs were elevated. His hepatology team is concerned for liver inflammation; started on ursodiol. There was a delay in delivering hyqvia by 1 week in june and felt he has more pain in his knees, and right ankle (felt like a sprain). His muscles did not feel weak. He denies any rashes. Review of Systems Constitutional: Negative for activity change, chills, diaphoresis, fatigue, fever and unexpected weight change. HENT: Negative for congestion, drooling, facial swelling, mouth sores, postnasal drip, sinus pressure, sinus pain, sore throat and trouble swallowing. Eyes: Negative for photophobia, pain, redness, itching [...] for 21 days 42 tablet 0 ??? IgG/hyaluronidase,recombinant (HYQVIA SUBQ) Inject under the skin ??? tacrolimus (PROGRAF) 0.5 mg capsule Take 1 capsule (0.5 mg total) by mouth 2 (two) times a day 60 capsule 11 ??? ursodioL (ACTIGALL) 300 mg capsule Take 2 capsules (600 mg total) by mouth daily with dinner TAKE 1 CAPSULE NIGHTLY WITH DINNER FOR 1 WEEK, THEN 2 CAPSULES NIGHTLY WITH DINNER UNTIL TOLD OTHERWISE 60 capsule 3 No current facility-administered medications for this visit. Family History Problem Relation Age of Onset ??? Rectal cancer Mother Rectal cancer - (Added by MARIN Conv) ??? Diabetes type II Sister Family history of type 2 diabetes mellitus - (Added by MARIN Conv) ??? Anesthesia problems Other ??? No Known Problems Father Social History Tobacco Use ??? Smoking status: Never Smoker ??? Smokeless tobacco: Current User Types: Chew Substance Use Topics ??? Alcohol use: Yes Comment: occassional ??? Drug use: Not Currently Vitals Ht 172.7 cm (5' 8 ) Wt 59 kg (130 lb) BMI 19.77 kg/m?? Physical Exam Constitutional: Appearance: Normal appearance. HENT: Head: Normocephalic and atraumatic. Eyes: Extraocular Movements: Extraocular movements intact. Pupils: Pupils are equal, round, and reactive to light. Musculoskeletal: General: No tenderness or deformity. Skin: Coloration: Skin is not pale. Findings: No erythema or rash. Neurological: General: No focal deficit present. Mental Status: He is alert and oriented to person, place, and time. Ref. Range 05/07/2021 08:23 05/07/2021 08:23 05/07/2021 12:13 Sodium Latest Ref Range: 135 - 145 [...] Range: 7 - 55 Units/L 77 (H) REEMA Latest Ref Range: 10 - 55 Units/L 131 (H) Aldolase Latest Ref Range: 0.1 - 8.0 Units/L 12.5 (H) CK Latest Ref Range: 26 - 308 IU/L 105 Lactate dehydrogenase (LDH) Latest Ref Range: 100 [...] Ref Range: 700.0 - 1,600.0 mg/dL 1,295.0 Complement hemolytic Latest Ref Range: 30 - 75 units/mL >75 (H) Complement C3, Serum Latest Ref Range: 90.0 - 180.0 mg/dL 159.0 Complement C4, Serum Latest Ref Range: 10.0 - 40.0 mg/dL 33.2 CRP Latest Ref Range: <=10.0 mg/L 8.2 Erythrocyte sedimentation rate Latest Ref Range: 1 - 15 mm/hr 49 (H) KEISHA Unknown Negative dsDNA Ab Latest Ref Range: <=4.0 IUnits/mL <1.0 Anti-GEOVANNI ag Latest Ref Range: Negative Negative PATRICIA-1 ab Latest Ref Range: <20 Units <20 EJ* Latest Ref Range: Negative Negative Ku Latest Ref Range: Negative Weak Positive (A) Mi-2 antibodies* Latest Ref Range: Negative Negative [...] ab IgG Latest Ref Range: <20 Units 21 (H) Anti U2 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 IMPRESSION: Comparison 01/17/2021. Multiple surgical clips again noted within the right upper quadrant and to lesser extent in the left upper quadrant. ?? Mediastinal and hilar lymphadenopathy again seen, best demonstrated on prior cross-sectional imaging as before. ?? Minimal scarring or atelectasis left lung base. No focal consolidation or pulmonary edema seen. No pneumothorax or pleural effusion seen. Heart size remains within normal limits. Assessment: The primary encounter diagnosis was Arthralgia of both lower legs. Diagnoses of Hilar lymphadenopathy and Abnormal laboratory 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 were also pertinent to this visit. Beka continues to be asymptomatic on hyqvia monthly SQ injections (IVIG) though the 1 week delay in receiving it did cause knee and ankle pains without swelling. He denies muscle weakness during that week. He has no rashes or sicca complaints. Interestingly he has hilar LAD, elevated REEMA levels which may be seen in sarcoidosis. Sarcoidosis may cause joint pains as well. There were no caseating granulomas on liver biopsy rather microgranulomas. His KEISHA/ GEOVANNI are negative including SSA antibodies but the SSA-52kd antibodies are positive and nowKu antibodies are weak positive. Again he does not endorse any muscle symptoms. Since this was a televisit I could not exam his muscles but he did not appear weak I will have him delay his IVIG by 1 week and come see me on 07/23/2021 for examination in clinic. Plan: Patient Instructions Delay hyqvia by 1 weeks Follow up in clinic 07/23/2021 11:40 AM for evaluation during the week you do not receive IVIG No clear diagnosis yet But hilar LAD and elevated REEMA levels with joint pains may be leading to sarcoid. No orders of the defined types were placed in this encounter. documented in this encounter Plan of Treatment Scheduled Procedures Name Priority Associated Diagnoses Date/Ti me COLONOSCOPY Encounter for screening for colorectal cancer in high risk patient Family history of rectal cancer documented as of this encounter Visit Diagnoses Diagnosis Arthralgia of both lower legs- Primary Hilar lymphadenopathy Enlargement of lymph nodes Abnormal laboratory 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 Other abnormal clinical finding documented in this encounter Care Teams Ed Case Manager Relationship Specialty Start Date End Date Guero Colunga DO PCP - General Internal Medicine 03/22/19 04/18/23 Amber Montesinos RN Day Care Assistant Transplant 11/17/19 Jil Duncan MD Consulting Physician Infectious Diseases 01/10/20 Anita Gillespie MD Medical Oncologist/Asphalt Dauber Medical Oncology 10/07/20 documented as of this encounter
--- OUTSIDE RECORDS SUMMARY | 2024-10-28 06:17 | XMS_ITS | Encounter Summary ---
Author Organization [facility] Healthcare Address [address] [place] [address] Care Team Providers Care Waiter And Cashier Name Role Phone Guero Colunga DO Primary Care Provider [phone] Amber Montesinos RN Unavailable [phone] Jil Duncan MD Unavailable [phone] Anita Gillespie MD Unavailable [phone] Encounter Details Date Type Department Care Team (Late st Contact Info) Description 06/30/2021 Documentation [facility] Transplant Liver [address] [facility] [id number] [place], [place] [id number] Amber Montesinos RN Social History Tobacco Use Types Packs/Day Years Used Date Smoking Tobacco: Never Smokeless Tobacco: Current Chew Alcohol Use Standard Drinks/Week Comments Yes 0 (1 standard drink = 0.6 oz pur e alcohol) occassional Sex and Gender Information Value Date Recorded Sex Assigned at Not on file 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 Gresham. Plan to continue monthly labs for now. documented in this encounter Plan of Treatment Scheduled Procedures Name Priority Associated Diagnoses Date/Ti me COLONOSCOPY Encounter for screening for colorectal cancer in high risk patient Family history of rectal cancer documented as of this encounter Visit Diagnoses Not on filedocumented in this encounter Care Teams Waiter And Cashier Relationship Specialty Start Date End Date Guero Colunga DO PCP - General Internal Medicine 03/22/19 04/18/23 Amber Montesinos RN Meat Pickler Transplant 11/17/19 Jil Duncan MD Consulting Physician Infectious Diseases 01/10/20 Anita Gillespie MD Medical Oncologist/Architectural Designer Medical Oncology 10/07/20 documented as of this encounter
--- OUTSIDE RECORDS SUMMARY | 2024-10-28 06:17 | XMS_ITS | Encounter Summary ---
Author Organization [facility] Healthcare Address [address] [place] [address] Care Team Providers Care Insulation Batting Machine Operator Name Role Phone Guero Colunga Primary Care Provider [phone] Amber Montesinos RN Unavailable [phone] Jil Duncan MD Unavailable [phone] Anita Gillespie MD Unavailable [phone] Encounter Details Date Type Department Care Team (Late st Contact Info) Description 06/10/2021 Telephone [facility] Transplant Liver [address] [facility] [id number] [place] [address] Rafia Wright Social History Tobacco Use Types Packs/Day Years Used Date Smoking Tobacco: Never Smokeless Tobacco: Current Chew Alcohol Use Standard Drinks/Week Comments Yes 0 (1 standard drink = 0.6 oz pur e alcohol) occassional Sex and Gender Information Value Date Recorded Sex Assigned at Not on file 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 Let her know that patient already has a standing order at [facility] or if he prefers to come to [facility] he can. She should call back to let us know if he wants to get them done at the [facility] so that we can place an order for labs there. * Telephone Encounter - Rafia Wright - 06/10/2021 2:34 PM CDT Sonia left asking where do you want pt to have labs. [phone]. documented in this encounter Plan of Treatment Scheduled Procedures Name Priority Associated Diagnoses Date/Ti me COLONOSCOPY Encounter for screening for colorectal cancer in high risk patient Family history of rectal cancer documented as of this encounter Visit Diagnoses Not on filedocumented in this encounter Care Teams Insulation Batting Machine Operator Relationship Specialty Start Date End Date Guero Colunga DO PCP - General Internal Medicine 03/22/19 04/18/23 Amber Montesinos, SHAILESH Shale Processing Technician Transplant 11/17/19 Jil Duncan MD Consulting Physician Infectious Diseases 01/10/20 Anita Gillespie MD Medical Oncologist/Traffic Court Referee Medical Oncology 10/07/20 documented as of this encounter
--- OUTSIDE RECORDS SUMMARY | 2024-10-28 06:17 | XMS_ITS | Encounter Summary ---
Author Organization 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) Procedures X-Ray chest 2 views Nancy Butler NP Phone: tel: fax: [address] [address] Referral ID Status Reason Start Date Expiration Date Visits Re quested Visits Authorized [id number] Closed 05/07/2021 06/06/2022 1 1 Encounter Details Date Type Department Care Team (Late st Contact Info) Description 05/07/2021 8:30 AM CDT Office Visit [facility] Oncology [facility] 7th [place] [address] [place] [address] Anita Gillespie MD [address] [facility] [address] [place] [address] 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) Social History Tobacco Use Types Packs/Day Years Used Date Smoking Tobacco: Never Smokeless Tobacco: Current Chew Alcohol Use Standard Drinks/Week Comments Yes 0 (1 standard drink = 0.6 oz pur e alcohol) occassional Sex and Gender Information Value Date Recorded Sex Assigned at Not on file Legal Sex Male 6:28 AM RESPIRATORY EQUIPMENT ASSISTANT Gender Identity Not on file Sexual Orientation Straight 08/22/2021 9: 23 AM CDT documented as of this encounter Last Filed Vital Signs Vital Sign Reading Time Taken Comments Blood Pressure 100/63 05/07/2021 7:58 AM CDT Pulse 74 05/07/2021 7:58 AM CDT Temperature 36.6 ??C (97.9 ??F) 05/07/2021 7:56 AM CD T Respiratory Rate 18 05/07/2021 7:56 AM CDT Oxygen Saturation 97% 05/07/2021 7:58 AM CDT Inhaled Oxygen Concentration - - Weight 54.1 kg (119 lb 3.2 oz) 05/07/2021 7:56 A M CDT Height - - Body Mass Index 18.67 01/17/2021 1:44 PM CDT documented in this encounter Ordered Prescriptions Prescription Sig Dispense Quantity Refills Last Filled Start Date End Date amoxicillin-clavul anate (AUGMENTIN) 875-125 mg per tablet Take 1 tablet by mouth 2 (two) times a day for 10 days 20 tablet 05/07/2021 05/17/2021 documented in this encounter Progress Notes * Nancy Butler NP - 05/07/2021 12:00 AM CDT PATIENT NAME: ADI NICHOLS : 1995 JUSTEN: 05/07/2021 DIAGNOSES: 1. 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 2. 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 3. Bilateral pulmonary emboli diagnosed on 10/19/2017. TREATMENT AND DISEASE COURSE: 1. R-CHOP x 1, 08/25/2017. 2. Dose adjusted EPOCH-R x 5, 09/15/2017 - 12/2017. Post-C2 PET: HI (5PS = 4), CR [...] INTERVAL HISTORY: Mr. Nichols returns to the [facility] for continued follow-up of his PTLD. He was last seen in clinic on 02/05/2021. Since that time, he has been fighting a cold for the last 3 to 4 weeks and has been extremely congested. He has an occasional productive cough with yellow sputum. He has nothad any fevers. He has had a slight rash on his chest and upper back that sometimes itches. He denies fevers, night sweats, shortness of breath, chest pain, abdominal pain or bloating, changes to bowel or bladder habits, or lower extremity edema. PHYSICAL EXAMINATION: Performance Status: 0. General: This is a well-appearing gentleman, resting comfortably, accompanied by his mother. Vital Signs: Weight is 54.1 kg, blood pressure 100/63, pulse 74, respirations 18, temperature 36.6,oxygen saturation 97% on room air. Lungs: Clear to auscultation. Heart: Regular rate and rhythm. Nodes: He has a 1 cm left jugular digastric and one just posterior measuring another centimeter. A low left posterior cervical lymph node. There is a chain of about 6 lymph nodes, each measuring about subcentimeter. He has a right cervical chain of lymph nodes, each lymph node measuring about subcentimeter, and there are 3 to 4 lymph nodes. A right jugular digastric measuring 1.5 cm, a 2 cm left axillary lymph node, a 1.5 right axillary lymph node, and several 1 cm left inguinal and right inguinal lymph nodes. Abdomen: Soft, nontender. No hepatosplenomegaly. Extremities: No edema. Skin: The patient has a slightly raised red rash on the center of his chest as well as his back. LABORATORY DATA: WBC 7.8, hemoglobin 14.8, platelets 206. Chemistry is remarkable for an alk phos of 451, AST of 84,and ALT of 77. LDH is 247. IMPRESSION AND PLAN: 1. History of C-Myc positive PTLD, EBV positive, stage EMY, IPI 3 for stage, LDH, and extranodal sites. This is a 26-year-old man, who is now over 3-1/2 years status post dose-adjusted EPOCH. He continues to have diffuse lymphadenopathy, which has been stable and unchanged. In the past, he has had m ultiple biopsies, without evidence of recurrence. We will continue to follow him closely and see him back in 5 months. The patient would like to line up his next appointment with his Transplant Team,which is not until October. The patient knows to call with any questions or concerns. 2. Upper respiratory infection. The patient has tried [id number] medications, with no relief.We will call in a course of antibiotics. The patient knows to call if his infection were to worsen.He had a negative chest x-ray today. 3. Rash. The patient reports that he wears a sweaty shirt almost every day at work, and his rash worsens while he is at work. We will trial a course of ketoconazole. 4. Nonspecific inflammatory arthritis. 5. CVID. The patient has been on subcutaneous IVIG since October. 6. History of liver transplant. The patient continues to follow with Dr. Gresham and is on tacrolimus 0.5 mg b.i.d. 7. Pulmonary nodules. The patient's chest x-ray is negative today. 8. CMV viremia. The patient continues to follow with Dr. Valdez in [place], and he is on Valcyte 900 mg b.i.d. This patient was discussed with Dr. Anita Gillespie, who helped formulate the plan of care. ELECTRONICALLY SIGNED - 05/10/2021 09:22 AM Nancy Butler NP Nurse Practitioner In collaboration with Anita Gillespie M.D. My signature confirms I have reviewed the note and agree with the assessment and plan of Nancy Butler NP ELECTRONICALLY SIGNED - 05/11/2021 07:32 PM Anita Gillespie M.D. sitecore developer Emily Chair in Medical Oncology AP/NB/lw cc: LENO GRESHAM MD [address] [facility] [address], [place] [address] / JIL VALDEZ M.D. [address] [place] [address] GARRY FRANKS MD [address] [facility] [address] [place] [address] LINDA CHAPA MD [address] [place] [address] / GUERO COLUNGA DO [address] [place] [address] / documented in this encounter Miscellaneous Notes * Addendum Note - Ally Childress RN - 05/07/2021 8:30 AM CDTAddended by: ALLY CHILDRESS on: 09/29/2021 09:16 PM Modules accepted: Orders IRATORY EQUIPMENT ASSISTANT documented in this encounter Plan of Treatment Scheduled Procedures Name Priority Associated Diagnoses Date/Ti me COLONOSCOPY Encounter for screening for colorectal cancer in high risk patient Family history of rectal cancer documented as of this encounter Results * (ABNORMAL) IgG (10/01/2021 7:12 AM RESPIRATORY EQUIPMENT ASSISTANT) Immunoglobulin G 440.0(L) 700.0 - 1,600.0 mg/dL [facility] Blood 10/01/2021 7:12 AM RESPIRATORY EQUIPMENT ASSISTANT 10/01/2021 7:52 AM RESPIRATORY EQUIPMENT ASSISTANT Nancy Butler NP LAB BLOOD ORDERABLES Final Result Performing Organization Address City/[facility] Co de Phone Number [facility] [place] [address] * Lactate dehydrogenase (LD) (10/01/2021 7:12 AM RESPIRATORY EQUIPMENT ASSISTANT) [facility] Lactate dehydrogenase (LDH) 240 100 - 250 Units/L [facility] Comment:Testing performed by : [facility], [address] [place] [phone] Blood 10/01/2021 7:12 AM RESPIRATORY EQUIPMENT ASSISTANT 10/01/2021 7:14 AM RESPIRATORY EQUIPMENT ASSISTANT Nancy Butler NP LAB BLOOD ORDERABLES Final Result Performing Organization Address [facility] de Phone Number [facility] [place] [address] * (ABNORMAL) Comprehensive metabolic panel (10/01/2021 7:12 AM RESPIRATORY EQUIPMENT ASSISTANT) [facility] Sodium 138 135 - 145 mmol/L [facility] Comment:Testing performed by : [facility], [address] [place] [phone] Potassium, pl 4.8 3.3 - 4.9 mmol/L [facility] Comment:Testing performed by : [facility], [address] [place] [phone] Chloride 105 97 - 110 mmol/L [facility] Comment:Testing performed by : [facility], [address] [place] [phone] CO2 26 22 - 32 mmol/L [facility] Comment:Testing performed by : [facility], [address] [place] [phone] Anion gap 7 2 - 15 mmol/L [facility] Comment:Testing performed by : [facility], [address] [place] [phone] BUN 11 8 - 25 mg/dL [facility] Comment:Testing performed by : [facility], [address] [place] [phone] Creatinine 0.78(L) 0.80 - 1.30 mg/dL [facility] Comment:Testing performed by : [facility], [address] [place] [phone] Glucose 98 70 - 199 mg/dL [facility] Comment: [...] was last revised 2017. Testing performed by: [facility], [address] [place] [phone] Calcium 8.8 8.5 - 10.3 mg/dL [facility] Comment:Testing performed by : [address] [phone] Bilirubin, total 1.4(H) 0.1 - 1.2 mg/dL [facility] Comment:Testing performed by : [address] [phone] Protein, pl 6.0(L) 6.5 - 8.5 g/dL [facility] Comment:Testing performed by : [facility], [address] [place] [phone] Albumin 3.9 3.5 - 5.0 g/dL [facility] Comment:Testing performed by : [address] [phone] Alk phos 413(H) 40 - 130 Units/L [facility] Comment:Testing performed by : [address] [phone] ALT 106(H) 7 - 55 Units/L [facility] Comment:Testing performed by : [facility], [address] [place] [phone] AST 127(H) 10 - 50 Units/L [facility] Comment:Testing performed by : [facility], [address] [place] [phone] Blood 10/01/2021 7:12 AM RESPIRATORY EQUIPMENT ASSISTANT 10/01/2021 7:14 AM RESPIRATORY EQUIPMENT ASSISTANT Nancy Butler STAFF RESPIRATORY THERAPIST LAB BLOOD ORDERABLES Final Result [facility] [place] [address] * (ABNORMAL) CBC with auto differential (10/01/2021 7:12 AM RESPIRATORY EQUIPMENT ASSISTANT) WBC 14.4(H) 3.8 - 9.8 K/cumm [facility] Comment:Testing performed by : [facility], [address] [place] [phone] Hgb 14.1 13.8 - 17.2 g/dL [facility] Comment:Testing performed by : [facility], [address] [place] [phone] Hct 41.5 40.7 - 50.3 % [facility] Comment:Testing performed by : [facility], [address] [place], [place] [phone] Plt 205 140 - 440 K/cumm [facility] Comment:Testing performed by : [facility], [address] [place] [phone] MPV 8.1 6.8 - 10.4 fL [facility] Comment:Testing performed by : [address] [phone] RBC 4.27(L) 4.50 - 5.70 M/cumm [facility] Comment:Testing performed by : [address] [phone] MCV 97.4 80.0 - 97.6 fL [facility] Comment:Testing performed by : [facility], [address] [place] [phone] MCH 33.0 26.7 - 33.7 pg [facility] Comment:Testing performed by : [facility], [address] [place] [phone] MCHC 33.9 32.7 - 35.5 g/dL [facility] Comment:Testing performed by : [facility], [address] [place] [phone] RDW CV 15.9(H) 11.8 - 14.6 % [facility] Comment:Testing performed by : [facility], [address] [place] [phone] NRBC abs 0.01 0.00 - 0.01 K/cumm [facility] Comment:Testing performed by : [facility], [address] [place] [phone] Blood 10/01/2021 7:12 AM RESPIRATORY EQUIPMENT ASSISTANT 10/01/2021 7:14 AM RESPIRATORY EQUIPMENT ASSISTANT Nancy Butler NP LAB BLOOD ORDERABLES Final Result [facility] [place] [address] * X-Ray chest 2 views (05/07/2021 9:45 AM CDT) Anatomical Region Laterality Modality Body, Chest N/A Computed Radiogr aphy 05/07/2021 11:5 9 AM CDT Impressions 05/07/2021 11:59 AM CDT Comparison 01/17/2021. Multiple surgical clips again noted within the right upper quadrant and to lesser extent in the left upper quadrant. Mediastinal and hilar lymphadenopathy again seen, best demonstrated on prior cross-sectional imaging as before. Minimal scarring or atelectasis left lung base. No focal consolidation or pulmonary edema seen. No pneumothorax or pleural effusion seen. Heart size remains within normal limits. Electronically signed by: Magdi Knutson M.D. Narrative 05/07/2021 11:59 AM CDT EXAMINATION: 2 view chest radiograph Procedure Note Magdi Knutson MD - 05/07/2021 EXAMINATION: 2 view chest radiograph IMPRESSION: Comparison 01/17/2021. Multiple surgical clips again noted within the right upper quadrant and to lesser extent in the left upper quadrant. Mediastinal and hilar lymphadenopathy again seen, best demonstrated on prior cross-sectional imaging as before. Minimal scarring or atelectasis left lung base. No focal consolidation or pulmonary edema seen. No pneumothorax or pleural effusion seen. Heart size remains within normal limits. Electronically signed by: Magdi Knutson M.D. 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) documented in this encounter Orders Appointment Requests Count Last Ordered Date Fi rst Ordered Date [facility] CLINIC APPOINTMENT REQUEST 2 021 05/07/2021 [facility] LAB APPOINTMENT 1 10/01/2021 documented in this encounter Care Teams Photographer Motion Picture Relationship Specialty Start Date End Date Guero Colunga DO PCP - General Internal Medicine 03/22/19 04/18/23 Amber Montesinos, RN Salesperson [employer] Transplant 11/17/19 Jil Valdez MD Consulting Physician Infectious Diseases 01/10/20 Anita Gillespie MD Medical Oncologist/Technical Applications Scientist Medical Oncology 10/07/20 documented as of this encounter
--- OUTSIDE RECORDS SUMMARY | 2024-10-28 06:17 | XMS_ITS | Encounter Summary ---
Author Organization [facility] Healthcare Address [address] [place] [address] Care Team Providers Care Lighting Technician Name Role Phone Guero Colunga Primary Care Provider [phone] Amber Montesinos RN Unavailable [phone] Jil Duncan MD Unavailable [phone] Anita Gillespie MD Unavailable [phone] Encounter Details Date Type Department Care Team (Late st Contact Info) Description 05/07/2021 2:35 PM CDT Lab [address] [address] [id number]; Arthralgia, unspecified joint; Abnormal positron emission tomography (PET) scan Social History Tobacco Use Types Packs/Day Years Used Date Smoking Tobacco: Never Smokeless Tobacco: Current Chew Alcohol Use Standard Drinks/Week Comments Yes 0 (1 standard drink = 0.6 oz pur e alcohol) occassional Sex and Gender Information Value Date Recorded Sex Assigned at Not on file 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 Gender Identity Not on file Sexual Orientation Straight 08/22/2021 9: 23 AM CDT documented as of this encounter Plan of Treatment Scheduled Procedures Name Priority Associated Diagnoses Date/Ti me COLONOSCOPY Encounter for screening for colorectal cancer in high risk patient Family history of rectal cancer documented as of this encounter Procedures Procedure Name Priority Date/Time Associated Diagnosis Comments MYOMARKER PANEL 3 Routine 05/07/2021 12: 13 PM CDT [id number] Arthralgia, unspecified joint Abnormal positron emission tomography (PET) scan KEISHA QUALITATIVE WITH REFLEX TO KEISHA QUANTITATIVE Routine 05/07/2021 12:13 PM CDT [id number] Arthralgia, unspecified joint Abnormal positron emission tomography (PET) scan ANTI-DOUBLE STRANDED DNA ANTIBODIES Routine 05/07/2021 12:13 PM CDT [id number] Arthralgia, unspecified joint Abnormal positron emission tomography (PET) scan C4 COMPLEMENT Routine 05/07/2021 12:13 PM CDT [id number] Arthralgia, unspecified joint Abnormal positron emission tomography (PET) scan GEOVANNI ANTIBODY EVALUATION WITH REFLEX Routine 05/07/2021 12:13 PM CDT [id number] Arthralgia, unspecified joint Abnormal positron emission tomography (PET) scan ALDOLASE Routine 05/07/2021 12:13 PM CDT [id number] Arthralgia, unspecified joint Abnormal positron emission tomography (PET) scan ERYTHROCYTE SEDIMENTATION RATE Routine 05/07/2021 12:13 PM CDT [id number] Arthralgia, unspecified joint Abnormal positron emission tomography (PET) scan ANGIOTENSIN CONVERTING ENZYME Routine 05/07/2021 12:13 PM CDT [id number] Arthralgia, unspecified joint Abnormal positron emission tomography (PET) scan COMPLEMENT, TOTAL Routine 05/07/2021 12: 13 PM CDT [id number] Arthralgia, unspecified joint Abnormal positron emission tomography (PET) scan C3 COMPLEMENT Routine 05/07/2021 12:13 PM CDT [id number] Arthralgia, unspecified joint Abnormal positron emission tomography (PET) scan CRP (ACUTE PHASE) Routine 05/07/2021 12: 13 PM CDT [id number] Arthralgia, unspecified joint Abnormal positron emission tomography (PET) scan documented in this encounter Results * (ABNORMAL) Complement, total (05/07/2021 12:13 PM CDT) Pathologist [facility] Complement hemolytic >75(H) 30 - 75 units/mL [facility] Comment: Test Performed by: [facility] [address] [place] [address] Senior Financial Consultant: Jason Sandy M.D. Ph.D.; CLIA# [id number] Blood specimen (specimen) 05/07/2021 12:13 PM CDT 05/11/2021 10:55 PM CDT Tabitha Hurley MD LAB BLOOD ORDERABLES Final Result Performing Organization Address [facility] de Phone Number [facility] Department [place] [address] * (ABNORMAL) Angiotensin converting enzyme (05/07/2021 12:13 PM CDT) [facility] REEMA 131(H) 10 - 55 Units/L [facility] Comment:Repeated on Dilution Blood specimen (specimen) 05/07/2021 12:13 PM CDT 05/07/2021 2:39 PM CDT Tabitha Hurley MD LAB BLOOD ORDERABLES Final Result Performing Organization Address City/[facility] de Phone Number [facility] [place] [address] * (ABNORMAL) Erythrocyte sedimentation rate (05/07/2021 12:13 PM CDT) Pathologist [facility] Erythrocyte sedimentation rate 49(H) 1 - 15 mm/hr [facility] Blood specimen (specimen) 05/07/2021 12:13 PM CDT 05/07/2021 2:39 PM CDT Tabitha Hurley MD LAB BLOOD ORDERABLES Final Result [facility] Department [place] [address] * CRP (acute phase) (05/07/2021 12:13 PM CDT) CRP 8.2 <=10.0 mg/L [facility] Blood specimen (specimen) 05/07/2021 12:13 PM CDT 05/07/2021 2:39 PM CDT Tabitha Hurley MD LAB BLOOD ORDERABLES Final Result Performing Organization Address [facility] Co de Phone Number [facility] Department [place] [address] * (ABNORMAL) Myomarker panel 3 (05/07/2021 12:13 PM CDT) Anti-Joy-1 ab <20 <20 Units [facility] Anti PL-7 ab Negative Negative [facility] Comment: This test was developed and its performance characteristics determined by [facility]. It has not been cleared or approved by the Food and Drug Administration. Anti PL-12 ab Negative Negative [facility] Comment: This test was developed and its performance characteristics determined by [facility]. It has not been cleared or approved by the Food and Drug Administration. Anti EJ ab Negative Negative [facility] Comment: This test was developed and its performance characteristics determined by [facility]. It has not been cleared or approved by the Food and Drug Administration. Anti OJ ab Negative Negative [facility] Comment: This test was developed and its performance characteristics determined by [facility]. It has not been cleared or approved by the Food and Drug Administration. Anti SRP ab Negative Negative [facility] Comment: This test was developed and its performance characteristics determined by [facility]. It has not been cleared or approved by the Food and Drug Administration. Anti Mi-2 ab Negative Negative [facility] Comment: This test was developed and its performance characteristics determined by [facility]. It has not been cleared or approved by the Food and Drug Administration. Polymyositis PM-SCL ab <20 <20 Units [facility] Comment: This test was developed and its performance characteristics determined by [facility]. It has not been cleared or approved by the Food and Drug Administration. Fibrillarin U3 ab Negative Negative [facility] Comment: This test was developed and its performance characteristics determined by [facility]. It has not been cleared or approved by the Food and Drug Administration. ?Interpretation for Anti-Joy-1, [id number], ?Anti-MDA-5, Anti-NXP-2, Anti-PM/Scl-100, ?Anti-SS-A 52 kD, Anti-U1 WIRE PHOTO OPERATOR NEWS: ?Negative: ?<20 ?Weak Positive: ? 20 - 39 ?Moderate Positive: ? 40 - 80 ?Strong Positive: ? >80 ?. Test Performed by: [facility] [address] [place] [address] Anti U2 SN WIRE PHOTO OPERATOR NEWS ab Negative Negative [facility] Comment: This test was developed and its performance characteristics determined by [facility]. It has not been cleared or approved by the Food and Drug Administration. Anti U1RNP ab <20 <20 Units [facility] Comment: This test was developed and its performance characteristics determined by [facility]. It has not been cleared or approved by the Food and Drug Administration. Anti KU ab Weak Positive(A) Negative [facility] Comment: This test was developed and its performance characteristics determined by [facility]. It has not been cleared or approved by the Food and Drug Administration. P155/140 ab <20 <20 Units [facility] Comment: This test was developed and its performance characteristics determined by [facility]. It has not been cleared or approved by the Food and Drug Administration. MDA-5 P140 ab <20 <20 Units [facility] Comment: This test was developed and its performance characteristics determined by [facility]. It has not been cleared or approved by the Food and Drug Administration. NXP-2 P140 ab <20 <20 Units [facility] Comment: This test was developed and its performance characteristics determined by [facility]. It has not been cleared or approved by the Food and Drug Administration. SSA52 KD ab IgG 21(H) <20 Units [facility] Comment: This test was developed and its performance characteristics determined by [facility]. It has not been cleared or approved by the Food and Drug Administration. Blood specimen (specimen) 05/07/2021 12:13 PM CDT 05/07/2021 3:08 PM CDT Tabitha Hurley MD LAB BLOOD ORDERABLES Final Result [facility] Department [place] [address] * KEISHA qualitative with reflex to KEISHA Quantitative (05/07/2021 12:13 PM CDT) KEISHA Negative [facility] Comment: Interpretive Data Normal range for [...] BLOOD ORDERABLES Final Result Performing Organization Address [facility] Co de Phone Number [facility] [place] [address] * GEOVANNI Antibody Evaluation with Reflex (05/07/2021 12:13 PM CDT) GEOVANNI ab Negative Negative [facility] Comment: Interpretive Data Positive Screens will be reflexed to specific testing for the following antigens: Joy-1 Ab, WIRE PHOTO OPERATOR NEWS Ab, Scl-70 Ab, Zamora Ab, SS-A/Ro Ab, and SS-B/La Ab. Further testing for dsDNA, Centromere, or Ribosomal P antibodies is suggested in patient with a positive screen and negative specific antibodies. Current interpretive data was last revised on 17. Blood specimen (specimen) 05/07/2021 12:13 PM CDT 05/07/2021 2:39 PM CDT Tabitha Hurley MD LAB BLOOD ORDERABLES Final Result Performing Organization Address [facility] Co de Phone Number [facility] [place] [address] * Anti-double stranded DNA antibodies (05/07/2021 12:13 PM CDT) dsDNA Ab <1.0 <=4.0 IUnits/mL [facility] Comment: Interpretive Data Negative: < or = 4 IUnits/mL Indeterminate: 5 - 9 IUnits/mL Positive: > or = 10 IUnits/mL Current interpretive data was last revised on 2017. Blood specimen (specimen) 05/07/2021 12:13 PM CDT 05/07/2021 2:39 PM CDT Tabitha Hurley MD LAB BLOOD ORDERABLES Final Result Performing Organization Address [facility] Co de Phone Number [facility] [place] [address] * C3 complement (05/07/2021 12:13 PM CDT) Complement C3 159.0 90.0 - 180.0 mg/dL [facility] Blood specimen (specimen) 05/07/2021 12:13 PM CDT 05/07/2021 2:39 PM CDT Tabitha Hurley MD LAB BLOOD [place] [address] * C4 complement (05/07/2021 12:13 PM CDT) Complement C4 33.2 10.0 - 40.0 mg/dL [facility] Blood specimen (specimen) 05/07/2021 12:13 PM CDT 05/07/2021 2:39 PM CDT Tabitha Hurley MD LAB BLOOD ORDERABLES Final Result Performing Organization Address [facility] Co de Phone Number [facility] [place] [address] * (ABNORMAL) Aldolase (05/07/2021 12:13 PM CDT) Aldolase 12.5(H) 0.1 - 8.0 Units/L [facility] Blood specimen (specimen) 05/07/2021 12:13 PM CDT 05/07/2021 2:39 PM CDT Tabitha Hurley MD LAB BLOOD ORDERABLES Final Result Performing Organization Address City/[facility] [place] [address] documented in this encounter Visit Diagnoses Diagnosis [id number] Autoimmune disease, not elsewhere classified Arthralgia, unspecified joint Abnormal positron emission tomography (PET) scan documented in this encounter Care Teams Lighting Technician Relationship Specialty Start Date End Date Guero Colunga PCP - General Internal Medicine 03/22/19 04/18/23 Amber Montesinos RN Field Map Technician Transplant 11/17/19 Jil Duncan MD Consulting Physician Infectious Diseases 01/10/20 Anita Gillespie MD Medical Oncologist/Mechanical Engineering Advisor Medical Oncology 10/07/20 documented as of this encounter
--- OUTSIDE RECORDS SUMMARY | 2024-10-28 06:17 | XMS_ITS | Encounter Summary ---
Author Organization [facility] Address [address] [place] [address] Phone Care Team Providers Care Bindery Helper Name Role Phone Guero Colunga DO Primary Care Provider [phone] Amber Montesinos RN Unavailable [phone] Jil Duncan MD Unavailable [phone] Anita Gillespie MD Unavailable [phone] Reason for Referral * Consultation (Routine) - Closed Specialty Diagnoses / Procedures Referred By Contac t Referred To Contact Rheumatology Diagnoses Autoimmune disease (CMS/HCC) (HCC) Jan Bailon MD [address] [place] [address] Phone: tel: fax: [facility] (All Locations) Referral ID Status Reason Start Date Expiration Date V isits Requested Visits Authorized [id number] Closed Specialty Services Required 05/07/2021 03/15/2022 99 99 Question Answer Please select the performing region: [facility] (All Locations) [[id number]] # of visits: 1 Comments Eval for arthralgias that responded to IVIG, SSA52 positive Encounter Details Date Type Department Care Team (Late st Contact Info) Description 02/13/2021 Orders Only [facility] Pulmonary [address] [facility] [address] [place] [address] [place] [address] Sherlyn Garcia RN Autoimmune disease (CMS/HCC) (Primary Dx) Social History Tobacco Use Types Packs/Day Years Used Date Smoking Tobacco: Never Smokeless Tobacco: Current Chew Alcohol Use Standard Drinks/Week Comments Yes 0 (1 standard drink = 0.6 oz pur e alcohol) occassional Sex and Gender Information Value Date Recorded Sex Assigned at Not on file 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 Patient's mother understood. documented in this encounter Plan of Treatment Scheduled Procedures Name Priority Associated Diagnoses Date/Ti me COLONOSCOPY Encounter for screening for colorectal cancer in high risk patient Family history of rectal cancer Scheduled Referrals Name Type Priority Associated Diagnoses Order Schedule Ambulatory referral to Rheumatology Outpatient Referral Routine Autoimmune disease (CMS/HCC) Expected: 02/27/2021 (Approximate), Expires: 02/13/2022 documented as of this encounter Visit Diagnoses Diagnosis Autoimmune disease (CMS/HCC) (HCC)- Primary Autoimmune disease, not elsewhere classified documented in this encounter Care Teams Bindery Helper Relationship Specialty Start Date End Date Guero Colunga DO PCP - General Internal Medicine 03/22/19 04/18/23 Amber Montesinos RN Shank Breaker Transplant 11/17/19 Jil Duncan MD Consulting Physician Infectious Diseases 01/10/20 Anita Gillespie MD Medical Oncologist/Healthcare Representative Medical Oncology 10/07/20 documented as of this encounter
--- OUTSIDE RECORDS SUMMARY | 2024-10-28 06:17 | XMS_ITS | Encounter Summary ---
Author Organization [facility] Address [address] [place] [address] Phone Care Team Providers Care Staffing And Scheduling Coordinator Name Role Phone Guero Clounga DO Primary Care Provider [phone] Amber Montesinos RN Unavailable [phone] Jil Duncan MD Unavailable [phone] Anita Gillespie MD Unavailable [phone] Encounter Details Date Type Department Care Team (Late st Contact Info) Description 02/05/2021 8:00 AM CDT Lab [facility] Oncology [address] [facility] 7th [place] [address] [place] [address] Anita Gillespie MD [address] [facility] [address] [place], [place] [id number] 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); Hypogammaglobulinemia (CMS/HCC); Cytomegalovirus infection, unspecified cytomegaloviral infection type (CMS/HCC); History of liver transplant (CMS/HCC) Discharge Disposition: Discharge to home or self care Social History Tobacco Use Types Packs/Day Years Used Date Smoking Tobacco: Never Smokeless Tobacco: Current Chew Alcohol Use Standard Drinks/Week Comments Yes 0 (1 standard drink = 0.6 oz pur e alcohol) occassional Sex and Gender Information Value Date Recorded Sex Assigned at Not on file 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 Gresham. Will continue current treatment plan of routine labs monthly. Patient having repeat bloodwork done soon to review if valcyte can be discontinued. 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) GLUCOSE, RANDOM (OUTREACH) Routine 02/05/2021 8:36 AM CDT Cytomegalovirus infection, unspecified cytomegaloviral infection type (CMS/HCC) TACROLIMUS LEVEL, TROUGH Routine 02/05/2021 8:36 AM CDT History of liver transplant (CMS/HCC) COMPREHENSIVE METABOLIC PANEL WITHOUT GLUCOSE (OUTREACH) Routine 02/05/2021 8:36 AM CDT Cytomegalovirus infection, unspecified cytomegaloviral infection type (CMS/HCC) COMPREHENSIVE METABOLIC PANEL (OUTREACH) Routine 02/05/2021 8:36 AM CDT Cytomegalovirus infection, unspecified cytomegaloviral infection type (CMS/HCC) CBC WITH AUTO DIFFERENTIAL Routine 02/05/2021 8:36 AM CDT 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) MANUAL DIFFERENTIAL Routine 02/05/2021 8 :36 AM CDT 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) LACTATE DEHYDROGENASE Routine 02/05/2021 8:36 AM CDT 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) GAMMA GT Routine 02/05/2021 8:36 AM CDT History of liver transplant (CMS/HCC) IGG Routine 02/05/2021 8:36 AM CDT 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) Hypogammaglobulinemia (CMS/HCC) COMPREHENSIVE METABOLIC PANEL Routine 02/05/2021 8:36 AM CDT 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 ADI NICHOLS Gender: ??M : ??1995 (Age: 26) Address: ??[address] [place] [address] ??[id number] Hospital #: ??[id number] Taken:02/05/2021 Received:02/05/2021 Reported: 02/06/2021 Patient Type: [facility] Ref Lab Serie ?? Service: Laboratory Location: [facility] Physician(s): ??Anita Gillespie M.D. Diagnosis: Peripheral blood, morphologic review and flow cytometry: - ?No monoclonal B-cell population detected pmb/02/05/2021 16:01 By this signature, I attest that the above diagnosis is based upon my personal examination of the slides(and/or other material indicated in the diagnosis). Mi Weinberg M.D., Ph.D. Report Electronically Reviewed and Signed Out By ??Mi Weinberg M.D., Ph.D. 02/06/2021 14:44:56 Microscopic Description and Comment: CBC data from 02/04/2021 shows WBC-6.9 K/cumm, hemoglobin-14.1 g/dL, hematocrit- 40.3 %, platelets-176 K/cumm, MCV-93.9 fL, RDWCV-15.8 %. Microscopic examination of the Frazier-Giemsa stained peripheral blood smear shows normocytic and normochromic red blood cells with features compatible with post-splenectomy. Leukocytes are normal in number with mild absolute neutropenia and lymphocytosis with predominantly normal morphology. No significant population of circulating blasts or atypical lymphoid cells identified. Platelets are normal in number with occasional large forms. Flow cytometry does not reveal a clonal B-cell population. B-cells show a polytypic kappa and lambda light chain expression pattern. The B-cell population has dim CD5 co-expression, the significance of this is unknown.No significant CD45 dim population is identified. CD34+ blasts are not increased. Correlation clinical and laboratory data is recommended. A malignant process cannot be excluded solely on the basis of this assay. Flow cytometry was performed using antibodies to the following cellular antigens: CD45, CD34, CD19, CD20, [place], Lambda, CD10, CD5, CD200, CD38. 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 Specimen(s) Received: A: Peripheral blood for flow Gross Description: { Not Entered } Gross Pathologist: No pathologist assigned By this signature, I attest that the above diagnosis is based upon my personal examination of the slides(and/or other material). Addenda/Procedures The performance characteristics of some immunohistochemical stains, fluorescence in-situ hybridization tests and immunophenotyping by flow cytometry cited in this report (if any) were determined by the Surgical Pathology Department at [facility] as part of an ongoing quality improvement coordinator (rn) program and in compliance with federally mandated [...] performance characteristics determined by the Surgical Pathology Department of [facility]. ??It has not been cleared or approved by the U. S. Food and Drug Administration. IMAGES AND SCANNED DOCUMENTS, IF INCLUDED, ONLY VIEWABLE IN PDF VERSION OF REPORT Anita Gillespie MD LAB PATHOLOGY ORDERABLES F inal Result * Glucose, random (Outreach) (02/05/2021 8:36 AM CDT) Glucose 99 70 - 199 mg/dL [facility] Comment: Interpretive Data Fasting glucose >/= 126 [...] was last revised 2017. Testing performed by: [facility], [address] [place] [phone] Blood specimen (specimen) 02/05/2021 8:36 AM CDT 02/05/2021 8:53 AM CDT Narrative [facility] - 02/05/2021 8:55 AM CDT Please drawn with oncology labs 02/05/21 us Lisandra Auguste NP LAB BLOOD ORDERABLES Chata l Result [facility] [place] [address] * (ABNORMAL) Manual Differential (02/05/2021 8:36 AM CDT) Differential Manual [facility] Cells Counted 100 [facility] Neutrophil abs 1.5(L) 1.7 - 6.5 K/cumm [facility] Imm gran abs 0.0 0.0 - 0.1 K/cumm [facility] Lymphocyte abs 2.5 0.8 - 3.3 K/cumm [facility] Monocyte abs 0.9(H) 0.2 - 0.8 K/cumm [facility] Eosinophil abs 0.2 0.0 - 0.5 K/cumm [facility] Neutrophil pct 29.0 % [facility] Lymphocyte pct 49.0 % [facility] Monocyte pct 18.0 % [facility] Eosinophil pct 4.0 % [facility] Band Neutrophil pct 0.0 0.0 - 6.0 % [facility] Metamyelocyte pct 0.0 0.0 - 0.0 % [facility] Myelocyte pct 0.0 0.0 - 0.0 % [facility] Promyelocyte pct 0.0 0.0 - 0.0 % [facility] Variant lymph pct 0.0 0.0 - 0.0 % [facility] RBC morphology Normal [facility] Platelet estimate Adequate [facility] Blood specimen (specimen) 02/05/2021 8:36 AM CDT 02/05/2021 8:37 AM CDT us Anita Gillespie MD LAB BLOOD ORDERABLES Final Result [facility] [place] [address] * (ABNORMAL) Comprehensive metabolic panel, without glucose (Outreach) (02/05/2021 8:36 AM CDT) Sodium 140 135 - 145 mmol/L [facility] Comment:Testing performed by : [facility], [address] [place] [phone] Potassium, pl 4.2 3.3 - 4.9 mmol/L [facility] Comment:Testing performed by : [facility], [address] [place] [phone] Chloride 106 97 - 110 mmol/L [facility] Comment:Testing performed by : [facility], [address] [place] [phone] CO2 28 22 - 32 mmol/L [facility] Comment:Testing performed by : [facility], [address] [place] [phone] Anion gap 6 2 - 15 mmol/L [facility] Comment:Testing performed by : [facility], [address] [place] [phone] BUN 9 8 - 25 mg/dL [facility] Comment:Testing performed by : [facility], [address] [place] [phone] Creatinine 0.80 0.80 - 1.30 mg/dL [facility] Comment:Testing performed by : [address] [phone] Calcium 9.3 8.5 - 10.3 mg/dL [facility] Comment:Testing performed by : [facility], [address] [place] [phone] Protein, pl 6.6 6.5 - 8.5 g/dL [facility] Comment:Testing performed by : [facility], [address] [place] [phone] Albumin 3.9 3.5 - 5.0 g/dL [facility] Comment:Testing performed by : [facility], [address] [place] [phone] Bilirubin, total 0.6 0.1 - 1.2 mg/dL [facility] Comment:Testing performed by : [facility], [address] [facility] [phone] Alk phos 383(H) 40 - 130 Units/L [facility] Comment:Testing performed by : [facility], [address] [place] [phone] AST 75(H) 10 - 50 Units/L [facility] Comment:Testing performed by : [facility], [address] [place] [phone] ALT 68(H) 7 - 55 Units/L [facility] Comment:Testing performed by : [facility], [address] [place] [phone] Blood specimen (specimen) 02/05/2021 8:36 AM CDT 02/05/2021 8:50 AM CDT Narrative [facility] - 02/05/2021 8:55 AM CDT Please drawn with oncology labs 02/05/21 Lisandra Auguste CLOCK MAKER LAB BLOOD ORDERABLES Chata l Result Performing Organization Address City/[facility]/ZIP Co de Phone Number [facility] [place] [address] * Flow Leukemia/Lymphoma Blood (02/05/2021 8:36 AM CDT) Pathologist [facility] Leukemia/Lymp josé manuel Result See separate Surgical Pathology report. [facility] Blood specimen (specimen) 02/05/2021 8:36 AM CDT 02/05/2021 9:02 AM CDT Anita Gillespie MD LAB PATHOLOGY ORDERABLES F inal Result [facility] [place] [address] * (ABNORMAL) Gamma GT (02/05/2021 8:36 AM CDT) GGT 250(H) 10 - 50 Units/L [facility] Comment:Testing performed by : [facility], [address] [facility] [phone] Blood specimen (specimen) 02/05/2021 8:36 AM CDT 02/05/2021 8:37 AM CDT Narrative [facility] - 02/05/2021 8:55 AM CDT *Please draw with Dr. Gillespie's labs* Rafia Bautista MD LAB BLOOD ORDERABLES Final Result Performing Organization Address [facility] Co de Phone Number [facility] [place] [address] * Tacrolimus level trough (02/05/2021 8:36 AM CDT) Pathologist [facility] Tacrolimus trough 6.8 ng/mL [facility] Comment: Interpretive Data Testing performed by liquid chromatography-tandem mass spectrometry. ??Therapeutic concentrations vary depending on type of transplanted organ and time elapsed since transplant. ??Typical trough concentrations range from 5-15 ng/mL. ??This test was developed and its performance characteristics determined by the [facility] consistent with CLIA requirements. ??This test has not been cleared or approved by the [place] Food and Drug administration. ??Current interpretive data last reviewed 2020. Blood specimen (specimen) 02/05/2021 8:36 AM CDT 02/05/2021 8:53 AM CDT Narrative [facility] - 02/05/2021 11:40 AM CDT *Please draw with Dr. Gillespie's labs* Rafia Bautista MD LAB BLOOD ORDERABLES Final Result Performing Organization Address [facility]/ZIP Co de Phone Number [facility] [place] [address] * (ABNORMAL) CBC with auto differential (02/05/2021 8:36 AM CDT) WBC 5.1 3.8 - 9.8 K/cumm [facility] Comment:Testing performed by : [facility], [address] [place], [place] [phone] Hgb 14.8 13.8 - 17.2 g/dL [facility] Comment:Testing performed by : [facility], [address] [place] [address] Hct 42.6 40.7 - 50.3 % [facility] Comment:Testing performed by : [facility], [address] [place] [address] Plt 180 140 - 440 K/cumm [facility] Comment:Testing performed by : [facility], [address] [place] [address] MPV 8.7 6.8 - 10.4 fL [facility] Comment:Testing performed by : [place] [address] RBC 4.41(L) 4.50 - 5.70 M/cumm [facility] Comment:Testing performed by : [place] [address] MCV 96.7 80.0 - 97.6 fL [facility] Comment:Testing performed by : [place] [address] MCH 33.5 26.7 - 33.7 pg [facility] Comment:Testing performed by : [place] [address] MCHC 34.7 32.7 - 35.5 g/dL [facility] Comment:Testing performed by : [place] [address] RDW CV 15.7(H) 11.8 - 14.6 % [facility] Comment:Testing performed by : [place] [address] NRBC abs 0.00 0.00 - 0.01 K/cumm [facility] Comment:Testing performed by : [place] [phone] Blood specimen (specimen) 02/05/2021 8:36 AM CDT 02/05/2021 8:37 AM CDT us Anita Gillespie MD LAB BLOOD ORDERABLES Final Result [facility] [place] [address] * (ABNORMAL) Comprehensive metabolic panel (02/05/2021 8:36 AM CDT) Sodium 140 135 - 145 mmol/L [facility] Comment:Testing performed by : [facility], [address] [place] [phone] Potassium, pl 4.2 3.3 - 4.9 mmol/L [facility] Comment:Testing performed by : [facility], [address] [place] [phone] Chloride 106 97 - 110 mmol/L [facility] Comment:Testing performed by : [facility], [address] [place] [phone] CO2 28 22 - 32 mmol/L [facility] Comment:Testing performed by : [facility], [address] [place] [phone] Anion gap 6 2 - 15 mmol/L [facility] Comment:Testing performed by : [facility], [address] [place] [phone] BUN 9 8 - 25 mg/dL [facility] Comment:Testing performed by : [facility], [address] [place] [phone] Creatinine 0.80 0.80 - 1.30 mg/dL [facility] Comment:Testing performed by : [facility], [address] [place] [phone] Glucose 99 70 - 199 mg/dL [facility] Comment: [...] was last revised 2017. Testing performed by: [facility], [address] [place] [phone] Calcium 9.3 8.5 - 10.3 mg/dL [facility] Comment:Testing performed by : [facility], [address] [place] [phone] Bilirubin, total 0.6 0.1 - 1.2 mg/dL [facility] Comment:Testing performed by : [facility], [address] [place] [phone] Protein, pl 6.6 6.5 - 8.5 g/dL [facility] Comment:Testing performed by : [facility], [address] [place] [phone] Albumin 3.9 3.5 - 5.0 g/dL [facility] Comment:Testing performed by : [facility], [address] [place] [phone] Alk phos 383(H) 40 - 130 Units/L [facility] Comment:Testing performed by : [facility], [address] [place] [phone] ALT 68(H) 7 - 55 Units/L [facility] Comment:Testing performed by : [facility], [address] [place] [phone] AST 75(H) 10 - 50 Units/L [facility] Comment:Testing performed by : [address] [phone] Blood specimen (specimen) 02/05/2021 8:36 AM CDT 02/05/2021 8:37 AM CDT us Anita Gillespie MD LAB BLOOD ORDERABLES Final Result [facility] [place] [address] * (ABNORMAL) Lactate dehydrogenase (LD) (02/05/2021 8:36 AM CDT) Lactate dehydrogenase (LDH) 308(H) 100 - 250 Units/L [facility] Comment:Testing performed by : [facility], [address] [place] [phone] Blood specimen (specimen) 02/05/2021 8:36 AM CDT 02/05/2021 8:37 AM CDT Anita Gillespie MD LAB BLOOD ORDERABLES Final Result Performing Organization Address City/[facility]/ZIP Co de Phone Number [facility] [place] [address] * IgG (02/05/2021 8:36 AM CDT) [facility] Immunoglobulin G 849.0 700.0 - 1,600.0 mg/dL [facility] Blood specimen (specimen) 02/05/2021 8:36 AM CDT 02/05/2021 8:50 AM CDT Anita Gillespie MD LAB BLOOD ORDERABLES Final Result Performing Organization Address City/[facility] [place] [address] * (ABNORMAL) Cytomegalovirus (CMV) DNA PCR, quantitative Blood (02/05/2021 8:26 AM CDT) [facility] CMV DNA Detected( A) [facility] Comment: Interpretive Data: The quantifiable range of this assay is 137 IUnits/mL to 9,100,000 IUnits/mL (2.14 log IUnits/mL to 6.96 log IUnits/mL). Testing was performed by the [employer] AmpliPrep/NIA TaqMan CMV Test ([employer] Testing performed at [facility] Current interpretive data was last revised on 17. CMV DNA IU/mL 142 IUnits/mL [facility] CMV DNA log IU/mL 2.15 log IUnits/mL [facility] Blood specimen (specimen) 02/05/2021 8:26 AM CDT 02/05/2021 9:22 AM CDT Narrative [facility] - 02/05/2021 8:47 PM CDT Please drawn with oncology labs 02/05/21 us Lisandra Auguste CLOCK MAKER LAB MICROBIOLOGY - GENERA L ORDERABLES Final Result [facility] [place] [address] documented in this encounter Visit Diagnoses Diagnosis 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) Hypogammaglobulinemia (HCC) Unspecified hypogammaglobulinemia Cytomegalovirus infection, unspecified cytomegaloviral infection type (HCC) History of liver transplant (CMS/HCC) (HCC) Liver replaced by transplant documented in this encounter Orders Appointment Requests Count Last Ordered Date Fi rst Ordered Date ONCBCN LAB APPOINTMENT 1 02/05/2021 documented in this encounter Care Teams Staffing And Scheduling Coordinator Relationship Specialty Start Date End Date Guero Colunga DO PCP - General Internal Medicine 03/22/19 04/18/23 Amber Montesinos, SHAILESH Meat Cutting Teacher Transplant 11/17/19 Jil Duncan MD Consulting Physician Infectious Diseases 01/10/20 Anita Gillespie MD Medical Oncologist/Culinary Instructor Medical Oncology 10/07/20 documented as of this encounter
--- OUTSIDE RECORDS SUMMARY | 2024-10-28 06:17 | XMS_ITS | Encounter Summary ---
Author Organization [facility] Healthcare Address [address] [place] [address] Care Team Providers Care Computer Support Specialist Name Role Phone Guero Colunga Primary Care Provider [phone] Amber Montesinos RN Unavailable [phone] Jil Duncan MD Unavailable [phone] Anita Gillespie MD Unavailable [phone] Reason for Referral * Diagnostic Imaging (Routine) - Closed Specialty Diagnoses / Procedures Referred By Sascha rey Referred To Contact Diagnoses History of liver transplant (CMS/HCC) (HCC) Procedures XR Chest Pa Lateral 2 Views Jan Bailon MD [address] [place] [address] Phone: tel: fax: [facility] [address] [place] [address] Referral ID Status Reason Start Date Expiration Date Visits Re quested Visits Authorized [id number] Closed 10/16/2020 11/15/2021 1 1 Reason for Visit * Diagnostic Imaging (Routine) - Closed Specialty Diagnoses / Procedures Referred By Sascha rey Referred To Contact Diagnoses History of liver transplant (CMS/HCC) (HCC) Procedures XR Chest Pa Lateral 2 Views Jan Bailon MD [address] [place] [address] Phone: tel: fax: [facility] 1 [facility] [place] [address] Referral ID Status Reason Start Date Expiration Date Visits Re quested Visits Authorized [id number] Closed 10/16/2020 11/15/2021 1 1 Encounter Details Date Type Department Care Team (Latest Contact Info) Description 01/17/2021 1:35 PM CDT - 01/17/2021 11:59 PM CDT Hospital Encounter [facility] [place] [address] Jan Bailon MD [address] [place] [address] History of liver transplant (CMS/HCC) Discharge Disposition: [...] file 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 It has not been cleared or approved by the Food and Drug Administration. Anti PL-12 ab Negative Negative [facility] Comment: This test was developed and its performance characteristics determined by [facility]. It has not been cleared or approved by the Food and Drug Administration. Anti EJ ab Negative Negative [facility] Comment: This test was developed and its performance characteristics determined by [facility]. It has not been cleared or approved by the Food and Drug Administration. Anti OJ ab Negative Negative [facility] Comment: This test was developed and its performance characteristics determined by [facility]. It has not been cleared or approved by the Food and Drug Administration. Anti SRP ab Negative Negative [facility] Comment: This test was developed and its performance characteristics determined by [facility]. It has not been cleared or approved by the Food and Drug Administration. Anti Mi-2 ab Negative Negative [facility] Comment: This test was developed and its performance characteristics determined by [facility]. It has not been cleared or approved by the Food and Drug Administration. Polymyositis PM-SCL ab <20 <20 Units [facility] Comment: This test was developed and its performance characteristics determined by [facility]. It has not been cleared or approved by the Food and Drug Administration. Fibrillarin U3 ab Negative Negative [facility] Comment: This test was developed and its performance characteristics determined by [facility]. It has not been cleared or approved by the Food and Drug Administration. ?Interpretation for Anti-Joy-1, Zbpm-POZ-0mxrew, ?Anti-MDA-5, Anti-NXP-2, Anti-PM/Scl-100, ?Anti-SS-A 52 kD, Anti-U1 EDGE BLACKER: ?Negative: ?<20 ?Weak Positive: ? 20 - 39 ?Moderate Positive: ? 40 - 80 ?Strong Positive: ? >80 ?. Test Performed by: [facility] [address] [place] [address] Anti U2 SN EDGE BLACKER ab Negative Negative [facility] Comment: This test was developed and its performance characteristics determined by [facility]. It has not been cleared or approved by the Food and Drug Administration. Anti U1RNP ab <20 <20 Units [facility] Comment: This test was developed and its performance characteristics determined by [facility]. It has not been cleared or approved by the Food and Drug Administration. Anti KU ab Negative Negative [facility] Comment: This test was developed and its performance characteristics determined by [facility]. It has not been cleared or approved by the Food and Drug Administration. P155/140 ab <20 <20 Units [facility] Comment: This test was developed and its performance characteristics determined by [facility]. It has not been cleared or approved by the Food and Drug Administration. MDA-5 P140 ab <20 <20 Units [facility] Comment: This test was developed and its performance characteristics determined by [facility]. It has not been cleared or approved by the Food and Drug Administration. NXP-2 P140 ab <20 <20 Units [facility] Comment: This test was developed and its performance characteristics determined by [facility]. It has not been cleared or approved by the Food and Drug Administration. SSA52 KD ab IgG 23(H) <20 Units [facility] Comment: This test was developed and its performance characteristics determined by [facility]. It has not been cleared or approved by the Food and Drug Administration. Blood specimen (specimen) 01/17/2021 4:21 PM CDT 01/17/2021 5:08 PM CDT us Jan Bailon MD LAB BLOOD ORDERABLES Final Res ult [facility] Department [place] [address] * XR Chest Pa Lateral 2 Views (01/17/2021 1:37 PM CDT) Anatomical Region Laterality Modality Body, Chest N/A Computed Radiogr aphy 01/17/2021 2:28 PM CDT Impressions 01/17/2021 4:38 PM CDT Comparison is made to chest radiograph dated 12/25/2019. Multiple surgical clips are seen over the right upper quadrant and left upper quadrant. Additional clips are seen in the right neck. No focal consolidation, pleural effusion, or pneumothorax. The cardiac silhouette is within normal limits. Unchanged mediastinal and hilar lymphadenopathy is better evaluated on prior PET/CT examination dated 10/02/2020. Dictated by: Jr Scott M.D. The radiology attending physician has personally reviewed this study, and had reviewed and/or edited this written report and agrees with it. Electronically signed by: Magdi Knutson M.D. Narrative 01/17/2021 4:38 PM CDT EXAMINATION: 2 view chest radiograph Procedure Note Magdi Knutson MD - 01/17/2021 EXAMINATION: 2 view chest radiograph IMPRESSION: Comparison is made to chest radiograph dated 12/25/2019. Multiple surgical clips are seen over the right upper quadrant and left upper quadrant. Additional clips are seen in the right neck. No focal consolidation, pleural effusion, or pneumothorax. The cardiac silhouette is within normal limits. Unchanged mediastinal and hilar lymphadenopathy is better evaluated on prior PET/CT examination dated 10/02/2020. Dictated by: Jr Scott M.D. The radiology attending physician has personally reviewed this study, and had reviewed and/or edited this written report and agrees with it. Electronically signed by: Magdi Knutson M.D. Jan Bailon MD IMG XR PROCEDURES Final Result documented in this encounter Visit Diagnoses Diagnosis History of liver transplant (CMS/HCC) (HCC) Liver replaced by transplant documented in this encounter Care Teams Computer Support Specialist Relationship Specialty Start Date End Date Guero Colunga DO PCP - General Internal Medicine 03/22/19 04/18/23 Amber Montesinos RN Probation Counselor Transplant 11/17/19 Jil Duncan MD Consulting Physician Infectious Diseases 01/10/20 Anita Gillespie MD Medical Oncologist/Road Builder Medical Oncology 10/07/20 documented as of this encounter
--- OUTSIDE RECORDS SUMMARY | 2024-10-28 06:17 | XMS_ITS | Encounter Summary ---
Author Organization [facility] Healthcare Address [address] [place] [address] Care Team Providers Care Medical Assistant Cardiology Name Role Phone Guero Colunga Primary Care Provider [phone] Amber Montesinos RN Unavailable [phone] Jil Duncan MD Unavailable [phone] Anita Gillespie MD Unavailable [phone] Encounter Details Date Type Department Care Team (Late st Contact Info) Description 02/12/2021 Telephone [facility] Transplant Liver [address] [facility] [id number] [place] [address] Tarik Perry Social History Tobacco Use Types Packs/Day Years Used Date Smoking Tobacco: Never Smokeless Tobacco: Current Chew Alcohol Use Standard Drinks/Week Comments Yes 0 (1 standard drink = 0.6 oz pur e alcohol) occassional Sex and Gender Information Value Date Recorded Sex Assigned at Not on file 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 Gender Identity Not on file Sexual Orientation Straight 08/22/2021 9: 23 AM CDT documented as of this encounter Miscellaneous Notes * Telephone Encounter - Tarik Perry - 02/12/2021 1:12 PM CDT [facility] attempted patient contact saved to media documented in this encounter Plan of Treatment Scheduled Procedures Name Priority Associated Diagnoses Date/Ti me COLONOSCOPY Encounter for screening for colorectal cancer in high risk patient Family history of rectal cancer documented as of this encounter Visit Diagnoses Not on filedocumented in this encounter Care Teams Medical Assistant Cardiology Relationship Specialty Start Date End Date Guero Colunga DO PCP - General Internal Medicine 03/22/19 04/18/23 Amber Montesinos, SHAILESH Cylinder Inspector Transplant 11/17/19 Jil Duncan MD Consulting Physician Infectious Diseases 01/10/20 Anita Gillespie MD Medical Oncologist/House Father Medical Oncology 10/07/20 documented as of this encounter
--- OUTSIDE RECORDS SUMMARY | 2024-10-28 06:17 | XMS_ITS | Encounter Summary ---
Author Organization [facility] Address [address] [place] [address] Phone Care Team Providers Care Entry Level Marketing Representative Name Role Phone Guero Colunga DO Primary Care Provider [phone] Amber Montesinos RN Unavailable [phone] Jil Duncan MD Unavailable [phone] Anita Gillespie MD Unavailable [phone] Encounter Details Date Type Department Care Team (Late st Contact Info) Description 06/23/2021 Telephone [facility] Pulmonary [address] 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 mother called to reschedule pt's. appt. on 06/[address] Bailon. Please reschedule to 08/22/21 at 2:30pm with Dr. Bailon. thanks, Victorina documented in this encounter Plan of Treatment Scheduled Procedures Name Priority Associated Diagnoses Date/Ti me COLONOSCOPY Encounter for screening for colorectal cancer in high risk patient Family history of rectal cancer documented as of this encounter Visit Diagnoses Not on filedocumented in this encounter Care Teams Entry Level Marketing Representative Relationship Specialty Start Date End Date Guero Colunga DO PCP - General Internal Medicine 03/22/19 04/18/23 Amber Montesinos RN Journeyman Mill[employer] Transplant 11/17/19 Jil Duncan MD Consulting Physician Infectious Diseases 01/10/20 Anita Gillespie MD Medical Oncologist/Flue Dust Laborer Medical Oncology 10/07/20 documented as of this encounter
--- OUTSIDE RECORDS SUMMARY | 2024-10-28 06:17 | XMS_ITS | Encounter Summary ---
Author Organization [facility] Address [address] [place] [address] Phone Care Team Providers Care Unarmed Security Officer Name Role Phone Cristine Guero Primary Care Provider [phone] Amber Montesinos RN Unavailable [phone] Jil Duncan MD Unavailable [phone] Anita Gillespie MD Unavailable [phone] Encounter Details Date Type Department Care Team (Late st Contact Info) Description 05/07/2021 7:45 AM CDT Lab [facility] Oncology [address] [facility] 7th [place] [address] [place] [address] Anita Gillespie MD [address] [facility] [address] [place] [address] 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) Discharge Disposition: [...] on file 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 Gender Identity Not on file Sexual Orientation [...] Date/Time Associated Diagnosis Comments DIFFERENTIAL AUTO Routine 05/07/2021 8:2 3 AM CDT 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) CBC WITH AUTO DIFFERENTIAL Routine 05/07/2021 8:23 AM CDT 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) LACTATE DEHYDROGENASE Routine 05/07/2021 8:23 AM CDT 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) COMPREHENSIVE METABOLIC PANEL Routine 05/07/2021 8:23 AM CDT 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) IGG Routine 05/07/2021 8:23 AM CDT 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) documented in this encounter Results * (ABNORMAL) Differential, auto (05/07/2021 8:23 AM CDT) Neutrophil abs 3.0 1.8 - 6.6 K/cumm [facility] Comment:Testing performed by : [facility], [address] [place] [phone] Lymphocyte abs 2.8 1.2 - 3.3 K/cumm [facility] Comment:Testing performed by : [facility], [address] [place] [phone] Monocyte abs 1.6(H) 0.2 - 1.2 K/cumm [facility] Comment:Testing performed by : [facility], [address] [place] [phone] Eosinophil abs 0.4 0.0 - 0.5 K/cumm [facility] Comment:Testing performed by : [facility], [address] [place] [phone] Basophil abs 0.0 0.0 - 0.2 K/cumm [facility] Comment:Testing performed by : [facility], [address] [place] [phone] Neutrophil pct 37.9 % [facility] Comment: Interpretive Data Percent cell count reference ranges are not reported, since discordance with absolute values may lead to misinterpretation of CBC data. Current Interpretive Data was last revised on 2018. Testing performed by: [facility], [address] [place] [phone] Lymphocyte pct 36.2 % [facility] Comment: Interpretive Data Percent cell count reference ranges are not reported, since discordance with absolute values may lead to misinterpretation of CBC data. Current Interpretive Data was last revised on 2018. Testing performed by: [facility], [address] [place] [phone] Monocyte pct 20.2 % [facility] Comment:Testing performed by : [facility], [address] [place] [phone] Eosinophil pct 5.3 % [facility] Comment:Testing performed by : [facility], [address] [place] [phone] Basophil pct 0.4 % [facility] Comment:Testing performed by : [address] [phone] Blood specimen (specimen) 05/07/2021 8:23 AM CDT 05/07/2021 8:25 AM CDT Anita Gillespie MD LAB BLOOD ORDERABLES Final Result [facility] Department [place] [address] * (ABNORMAL) CBC with auto differential (05/07/2021 8:23 AM CDT) WBC 7.8 3.8 - 9.8 K/cumm [facility] Comment:Testing performed by : [facility], [address] [place] [phone] Hgb 14.8 13.8 - 17.2 g/dL [facility] Comment:Testing performed by : [facility], [address] [place], [place] [phone] Hct 44.2 40.7 - 50.3 % [facility] Comment:Testing performed by : [place] [phone] Plt 206 140 - 440 K/cumm [facility] Comment:Testing performed by : [place] [address] MPV 8.6 6.8 - 10.4 fL [facility] Comment:Testing performed by : [place] [address] RBC 4.42(L) 4.50 - 5.70 M/cumm [facility] Comment:Testing performed by : [place] [address] MCV 100.0(H) 80.0 - 97.6 fL [facility] Comment:Testing performed by : [place] [phone] MCH 33.5 26.7 - 33.7 pg [facility] Comment:Testing performed by : [place] [phone] MCHC 33.6 32.7 - 35.5 g/dL [facility] Comment:Testing performed by : [place] [phone] RDW CV 14.2 11.8 - 14.6 % [facility] Comment:Testing performed by : [place] [phone] NRBC abs 0.00 0.00 - 0.01 K/cumm [facility] Comment:Testing performed by : [place] [phone] Blood specimen (specimen) 05/07/2021 8:23 AM CDT 05/07/2021 8:25 AM CDT us Anita Gillespie MD LAB BLOOD ORDERABLES Final Result [facility] Department [place] [address] * (ABNORMAL) Comprehensive metabolic panel (05/07/2021 8:23 AM CDT) Sodium 141 135 - 145 mmol/L [facility] Comment:Testing performed by : [facility], [address] [place] [phone] Potassium, pl 4.3 3.3 - 4.9 mmol/L [facility] Comment:Testing performed by : [facility], [address] [place] [phone] Chloride 105 97 - 110 mmol/L [facility] Comment:Testing performed by : [facility], [address] [place] [phone] CO2 31 22 - 32 mmol/L [facility] Comment:Testing performed by : [facility], [address] [place] [phone] Anion gap 5 2 - 15 mmol/L [facility] Comment:Testing performed by : [facility], [address] [place] [phone] BUN 8 8 - 25 mg/dL [facility] Comment:Testing performed by : [facility], [address] [place] [phone] Creatinine 0.77(L) 0.80 - 1.30 mg/dL [facility] Comment:Testing performed by : [facility], [address] [place] [phone] Glucose 87 70 - 199 mg/dL [facility] Comment: Interpretive Data Fasting glucose >/= [...] was last revised 2017. Testing performed by: [facility], [address] [place] [phone] Calcium 9.4 8.5 - 10.3 mg/dL [facility] Comment:Testing performed by : [facility], [address] [place] [phone] Bilirubin, total 0.9 0.1 - 1.2 mg/dL [facility] Comment:Testing performed by : [facility], [address] [place] [phone] Protein, pl 7.2 6.5 - 8.5 g/dL [facility] Comment:Testing performed by : [facility], [address] [place] [phone] Albumin 4.2 3.5 - 5.0 g/dL [facility] Comment:Testing performed by : [facility], [address] [place] [phone] Alk phos 451(H) 40 - 130 Units/L [facility] Comment:Testing performed by : [facility], [address] [place], [place] [phone] ALT 77(H) 7 - 55 Units/L [facility] Comment:Testing performed by : [facility], [address] [place] [phone] AST 84(H) 10 - 50 Units/L [facility] Comment:Testing performed by : [facility], [address] [place] [phone] Blood specimen (specimen) 05/07/2021 8:23 AM CDT 05/07/2021 8:25 AM CDT us Anita Gillespie MD LAB BLOOD ORDERABLES Final Result [facility] Department [place] [address] * Lactate dehydrogenase (LD) (05/07/2021 8:23 AM CDT) Lactate dehydrogenase (LDH) 247 100 - 250 Units/L [facility] Comment:Testing performed by : [facility], [address] [place] [phone] Blood specimen (specimen) 05/07/2021 8:23 AM CDT 05/07/2021 8:25 AM CDT us Anita Gillespie MD LAB BLOOD ORDERABLES Final Result Performing Organization Address [facility] Co de Phone Number [facility] Department [place] [address] * IgG (05/07/2021 8:23 AM CDT) Immunoglobulin G 1,295.0 700.0 - 1,600.0 mg/dL [facility] Blood specimen (specimen) 05/07/2021 8:23 AM CDT 05/07/2021 8:55 AM CDT us Anita Gillespie MD LAB BLOOD ORDERABLES Final Result Performing Organization Address [facility] de Phone Number [facility] [place] [address] documented in this encounter Visit Diagnoses Diagnosis 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
--- OUTSIDE RECORDS SUMMARY | 2024-10-28 06:17 | XMS_ITS | Encounter Summary ---
Author Organization [facility] Healthcare Address [address] [place] [address] Care Team Providers Care Collector Of Port Name Role Phone Guero Colunga Primary Care Provider [phone] Amber Montesinos RN Unavailable [phone] Jil Duncan MD Unavailable [phone] Anita Gillespie MD Unavailable [phone] Encounter Details Date Type Department Care Team (Late st Contact Info) Description 06/13/2021 Telephone [facility] Transplant Liver [address] [facility] [address] [phone] [place] [address] Tarik Perry Social History Tobacco Use Types Packs/Day Years Used Date Smoking Tobacco: Never Smokeless Tobacco: Current Chew Alcohol Use Standard Drinks/Week Comments Yes 0 (1 standard drink = 0.6 oz pur e alcohol) occassional Sex and Gender Information Value Date Recorded Sex Assigned at Not on file 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 She states she did not need to speak to me. She just wanted to let usknow he needed a new standing order. * Telephone Encounter - Tarik Perry - 06/13/2021 8:45 AM CDT Amber: Patient's momBrooklynn returning your call, please call back [phone] Victorina: Please send SO to [facility] in [place], [place]. Patient will be going tomorrow for labs documented in this encounter Plan of Treatment Scheduled Procedures Name Priority Associated Diagnoses Date/Ti me COLONOSCOPY Encounter for screening for colorectal cancer in high risk patient Family history of rectal cancer documented as of this encounter Visit Diagnoses Not on filedocumented in this encounter Care Teams Collector Of Port Relationship Specialty Start Date End Date Guero Colunga DO PCP - General Internal Medicine 03/22/19 04/18/23 Amber Montesinos, SHAILESH Activity Director Transplant 11/17/19 Jil Duncan MD Consulting Physician Infectious Diseases 01/10/20 Anita Gillespie MD Medical Oncologist/Chip Loft Worker Medical Oncology 10/07/20 documented as of this encounter
--- OUTSIDE RECORDS SUMMARY | 2024-10-28 06:17 | XMS_ITS | Encounter Summary ---
Author Organization [facility] Address [address] [place] [address] Phone Care Team Providers Care Telecommunicator Name Role Phone Guero Colunga DO Primary Care Provider [phone] Amber Montesinos RN Unavailable [phone] Jil Duncan MD Unavailable [phone] Anita Gillespie MD Unavailable [phone] Encounter Details Date Type Department Care Team (Late st Contact Info) Description 08/22/2021 Telephone [facility] Pulmonary [address] [facility] 8th [place] [address] [place] [address] Jonh Broderick RMA Social History Tobacco Use Types Packs/Day Years Used Date Smoking Tobacco: Never Smokeless Tobacco: Current Chew Alcohol Use Standard Drinks/Week Comments Yes 0 (1 standard drink = 0.6 oz pur e alcohol) occassional Sex and Gender Information Value Date Recorded Sex Assigned at Not on file 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 Bailon. I couldn't find anything earlier. Thanks, Victorina ----- Message ----- From: John Broderick RMA Sent: 08/22/2021 3:32 PM CDT To: Eli Madera RN Subject: Follow Up Victorina , May I have a 4m slot with Dr Bailon ? Patient prefers a earlier afternoon appointment around one ifpossible. Thanks,Arnaldo'yonas documented in this encounter Plan of Treatment Scheduled Procedures Name Priority Associated Diagnoses Date/Ti me COLONOSCOPY Encounter for screening for colorectal cancer in high risk patient Family history of rectal cancer documented as of this encounter Visit Diagnoses Not on filedocumented in this encounter Care Teams Telecommunicator Relationship Specialty Start Date End Date Guero Colunga DO PCP - General Internal Medicine 03/22/19 04/18/23 Amber Montesinos RN Assistant Art Director Transplant 11/17/19 Jil Duncan MD Consulting Physician Infectious Diseases 01/10/20 Anita Gillespie MD Medical Oncologist/Lock Corner Machine Operator Medical Oncology 10/07/20 documented as of this encounter
--- OUTSIDE RECORDS SUMMARY | 2024-10-28 06:17 | XMS_ITS | Encounter Summary ---
Author Organization [facility] Address [address] [place] [address] Phone Care Team Providers Care Vessel Specialist Name Role Phone Guero Colunga DO Primary Care Provider [phone] Amber Montesinos RN Unavailable [phone] Jil Duncan MD Unavailable [phone] Anita Gillespie MD Unavailable [phone] Encounter Details Date Type Department Care Team (Late st Contact Info) Description 06/21/2021 Orders Only [facility] Gastroenterology [address] [facility] 8th [place] [address] [place] [address] Theodore Gresham MD [address] [facility] [address] [place] [address] Social History Tobacco Use Types Packs/Day Years Used Date Smoking Tobacco: Never Smokeless Tobacco: Current Chew Alcohol Use Standard Drinks/Week Comments Yes 0 (1 standard drink = 0.6 oz pur e alcohol) occassional Sex and Gender Information Value Date Recorded Sex Assigned at Not on file 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 Gender Identity Not on file Sexual Orientation Straight 08/22/2021 9: 23 AM CDT documented as of this encounter Plan of Treatment Scheduled Procedures Name Priority Associated Diagnoses Date/Ti me COLONOSCOPY Encounter for screening for colorectal cancer in high risk patient Family history of rectal cancer documented as of this encounter Procedures Procedure Name Priority Date/Time Associated Diagnosis Comments COPY(IES) SENT TO: Routine 06/21/2021 8: 08 AM CDT TACROLIMUS LEVEL, TROUGH Routine 06/21/2021 8:08 AM CDT CBC WITH AUTO DIFFERENTIAL Routine 06/21/2021 8:08 AM CDT GAMMA GT Routine 06/21/2021 8:08 AM CDT COMPREHENSIVE METABOLIC PANEL Routine 06/21/2021 8:08 AM CDT documented in this encounter Results * Tacrolimus level trough (06/21/2021 8:08 AM CDT) Tacrolimus, highly Sensitive, LC/MS/MS 6.2 mcg/L [employer] Comment: No definitive therapeutic or toxic ranges have been established. Optimal blood drug levels are influenced by type of transplant, patient response, time post- transplant, co-administration of other drugs, and drug formulation. The following trough range is a suggested guideline: 5.0-20.0 mcg/L. This test was developed and its analytical performance characteristics have been determined by [employer] It has not been cleared or approved by the FDA. This assay has been validated pursuant to the CLIA regulations and is used for clinical purposes. 06/21/2021 8:08 AM CDT 06/21/2021 8:10 AM CDT us Theodore Gresham MD LAB BLOOD ORDERABLES Final Result [facility] [address] [place] [address] * (ABNORMAL) Comprehensive metabolic panel (06/21/2021 8:08 AM CDT) Glucose 95 65 - 99 mg/dL [employer] Comment: ? Fasting reference interval BUN 13 7 - 25 mg/dL [facility] Creatinine 0.83 0.60 - 1.35 mg/dL [facility] eGFR NON-AFR. WELSH 120 > OR = 60 mL/min/1. 73m2 [facility] EGFR 139 > OR = 60 mL/min/1. 73m2 [facility] BUN/creat ratio NOT APPLICABLE 6 - 22 (calc) [facility] Sodium 141 135 - 146 mmol/L [facility] Potassium, pl 4.3 3.5 - 5.3 mmol/L [facility] Chloride 106 98 - 110 mmol/L [facility] CO2 28 20 - 32 mmol/L [facility] Calcium 9.3 8.6 - 10.3 mg/dL [facility] Protein, sr 6.4 6.1 - 8.1 g/dL [facility] Albumin 3.9 3.6 - 5.1 g/dL [facility] GLOBULIN 2.5 1.9 - 3.7 g/dL (calc) [facility] Alb/glob ratio 1.6 1.0 - 2.5 (calc) [facility] Bilirubin, total 0.7 0.2 - 1.2 mg/dL [facility] Alk phos 305(H) 36 - 130 U/L [facility] AST 80(H) 10 - 40 U/L [facility] ALT (SGPT) 73(H) 9 - 46 U/L [facility] 06/21/2021 8:08 AM CDT 06/21/2021 8:10 AM CDT us Theodore Gresham MD LAB BLOOD ORDERABLES Final Result [facility] [address] [place] [address] * (ABNORMAL) Gamma GT (06/21/2021 8:08 AM CDT) GGT 125(H) 3 - 70 U/L [facility] 06/21/2021 8:08 AM CDT 06/21/2021 8:10 AM CDT us Theodore Gresham MD LAB BLOOD ORDERABLES Final Result [facility] [address] [place] [address] * (ABNORMAL) CBC with auto differential (06/21/2021 8:08 AM CDT) WBC 11.3(H) 3.8 - 10.8 Thousand/u L [facility] RBC, POC 4.58 4.20 - 5.80 Million/uL [facility] Hgb 14.9 13.2 - 17.1 g/dL [facility] Hct 44.0 38.5 - 50.0 % [facility] MCV 96.1 80.0 - 100.0 fL [facility] MCH 32.5 27.0 - 33.0 pg [facility] MCHC 33.9 32.0 - 36.0 g/dL [facility] Rdw 13.8 11.0 - 15.0 % [facility] Platelets 235 140 - 400 Thousand/u L [facility] MPV 11.6 7.5 - 12.5 fL [facility] Neutrophils, abs 2,147 1,500 - 7,800 cells/uL [facility] Lymphocytes, abs 6,305(H) 850 - 3,900 cells/uL [facility] Monocyte abs 1,955(H) 200 - 950 cells/uL [facility] Eosinophils, abs 802(H) 15 - 500 cells/uL [facility] Basophils, abs 90 0 - 200 cells/uL [facility] Neutrophils 19 % [facility] Lymphocyte pct 55.8 % [facility] Monocytes 17.3 % [facility] Eosinophils 7.1 % [facility] Basophils 0.8 % [facility] 06/21/2021 8:08 AM CDT 06/21/2021 8:10 AM CDT Theodore Gresham MD LAB BLOOD ORDERABLES Final Result Performing Organization Address City/[facility]/ZIP Co de Phone Number JESSIE [facility] [address] [place] [address] * COPY(IES) SENT TO: (06/21/2021 8:08 AM CDT) COPY(IES) SENT TO: JESSIE Comment: ?[facility] LIVER - COPY TO ACCT ?[address] ?[place] [address] 06/21/2021 8:08 AM CDT 06/21/2021 8:10 AM CDT Theodore Gresham MD LAB BLOOD ORDERABLES Final Result [facility] documented in this encounter Visit Diagnoses Not on filedocumented in this encounter Care Teams Vessel Specialist Relationship Specialty Start Date End Date Guero Colunga DO PCP - General Internal Medicine 03/22/19 04/18/23 Amber Montesinos, SHAILESH Enrollment Clerk Transplant 11/17/19 Jil Duncan MD Consulting Physician Infectious Diseases 01/10/20 Anita Gillespie MD Medical Oncologist/Home Therapy Teacher Medical Oncology 10/07/20 documented as of this encounter
--- OUTSIDE RECORDS SUMMARY | 2024-10-28 06:17 | XMS_ITS | Encounter Summary ---
Author Organization [facility] Healthcare Address [address] [place] [address] Care Team Providers Care Mobile Home Installer Name Role Phone Guero Colunga Primary Care Provider [phone] Amber Montesinos RN Unavailable [phone] Jil Duncan MD Unavailable [phone] Anita Gillespie MD Unavailable [phone] Encounter Details Date Type Department Care Team (Late st Contact Info) Description 04/30/2021 Telephone [facility] Transplant Liver [address] [facility] [address] [phone] [place] [address] Tarik Perry Social History Tobacco Use Types Packs/Day Years Used Date Smoking Tobacco: Never Smokeless Tobacco: Current Chew Alcohol Use Standard Drinks/Week Comments Yes 0 (1 standard drink = 0.6 oz pur e alcohol) occassional Sex and Gender Information Value Date Recorded Sex Assigned at Not on file 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 Gender Identity Not on file Sexual Orientation Straight 08/22/2021 9: 23 AM CDT documented as of this encounter Miscellaneous Notes * Telephone Encounter - Tarik Perry - 04/30/2021 2:46 PM CDT [facility] Transplant Medication Alert documented in this encounter Plan of Treatment Scheduled Procedures Name Priority Associated Diagnoses Date/Ti me COLONOSCOPY Encounter for screening for colorectal cancer in high risk patient Family history of rectal cancer documented as of this encounter Visit Diagnoses Not on filedocumented in this encounter Care Teams Mobile Home Installer Relationship Specialty Start Date End Date Cristine GueroDO PCP - General Internal Medicine 03/22/19 04/18/23 Amber Montesinos, RN Facility Operations Manager Transplant 11/17/19 Jil Duncan MD Consulting Physician Infectious Diseases 01/10/20 Anita Gillespie MD Medical Oncologist/Geriatric Social Worker Medical Oncology 10/07/20 documented as of this encounter
--- OUTSIDE RECORDS SUMMARY | 2024-10-28 06:17 | XMS_ITS | Encounter Summary ---
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) Procedures X-Ray chest 2 views Nancy Butler NP Phone: tel: fax: [address] [address] Referral ID Status Reason Start Date Expiration Date Visits Re quested Visits Authorized [id number] Closed 05/07/2021 06/06/2022 1 1 Reason for Visit * Diagnostic Imaging (Routine) - Closed Specialty Diagnoses / Procedures Referred By Sascha rey Referred To Contact Diagnoses 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) Procedures X-Ray chest 2 views Nancy Butler NP Phone: tel: fax: [address] [facility] [place] [address] Referral ID Status Reason Start Date Expiration Date Visits Re quested Visits Authorized [id number] Closed 05/07/2021 06/06/2022 1 1 Encounter Details Date Type Department Care Team (Latest Contact Info) Description 05/07/2021 9:37 AM CDT - 05/07/2021 11:59 PM CDT Hospital Encounter [facility] [place] [address] Nancy Butler NP [address] [facility] [place] [address] 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) Discharge Disposition: [...] on file 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 Gender Identity Not on file Sexual Orientation Straight 08/22/2021 9: 23 AM CDT documented as of this encounter Medications at Time of Discharge amoxicillin-clavu lanate (AUGMENTIN) 875-125 mg per tablet Take 1 tablet by mouth 2 (two) times a day for 10 days 20 tablet 05/07/2021 05/17/2021 IgG/hyaluronidase ,recombinant (HYQVIA SUBQ) Inject under the [...] Scheduled Procedures Name Priority Associated Diagnoses Date/Ti co COLONOSCOPY Encounter for screening for colorectal cancer in high risk patient Family history of rectal cancer documented as of this encounter Procedures Procedure Name Priority Date/Time Associated Diagnosis Comments XR CHEST PA LATERAL 2 VIEWS Schedule Routine, Read Routine (OP Routine) 05/07/2021 9:45 AM CDT 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) documented in this encounter Results * X-Ray chest 2 views (05/07/2021 9:45 [...] signed by: Magdi Knutson M.D. 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
--- OUTSIDE RECORDS SUMMARY | 2024-10-28 06:18 | XMS_ITS | Encounter Summary ---
Author Organization [facility] Address [address] [place] [address] Phone Care Team Providers Care House Rn Name Role Phone Guero Colunga DO Primary Care Provider Amber Montesinos RN Unavailable [phone] Jil Duncan MD Unavailable [phone] Anita Gillespie MD Unavailable [phone] Reason for Visit * Procedure (Routine) - Canceled Specialty Diagnoses / Procedures Referred By Contac t Referred To Contact Neurology Diagnoses Weakness Procedures Muscle Biopsy Hans Mendes MD PhD [address] [place] [address] Phone: tel: fax: [facility] Neuro Muscle [address] [facility] [address]th [place] [address] [place] [address] Phone: tel: fax: Referral ID Status Reason Start Date Expiration Date V isits Requested Visits Authorized [id number] Canceled 09/19/2020 10/19/2021 1 1 Encounter Details Date Type Department Care Team (Late st Contact Info) Description 10/08/2020 9:00 AM GARAGE LABORER Office Visit [facility] Neuro Muscle [address] [facility] Medicine 6th [place] [address] [place] [address] Roberto Panchal MD PhD [address] [place] [address] Myalgia (Primary Dx); Chronic arthralgias of knees and hips Social History Tobacco Use Types Packs/Day Years Used Date Smoking Tobacco: Never Smokeless Tobacco: Current Chew Alcohol Use Standard Drinks/Week Comments Yes 0 (1 standard drink = 0.6 oz pur e alcohol) occassional Sex and Gender Information Value Date Recorded Sex Assigned at Not on file Legal 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 Male 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 Gender Identity Not on file Sexual Orientation Straight 08/22/2021 9: 23 AM CDT documented as of this encounter Last Filed Vital Signs Vital Sign Reading Time Taken Comments Blood Pressure 114/72 10/08/2020 8:52 AM GARAGE LABORER Pulse 82 10/08/2020 8:52 AM GARAGE LABORER Temperature 36.4 ??C (97.5 ??F) 10/08/2020 8:52 AM CS T Respiratory Rate - - Oxygen Saturation - - Inhaled Oxygen Concentration - - Weight 59.9 kg (132 lb) 10/08/2020 8:52 AM GARAGE LABORER Height 172.7 cm (5' 8 ) 10/08/2020 8:52 AM GARAGE LABORER Body Mass Index 20.07 10/08/2020 8:52 AM GARAGE LABORER documented in this encounter Patient Instructions * Patient Instructions* Roberto Panchal MD PhD - 10/08/2020 9:00 AM GARAGE LABORER 1) Counseling on the rationale behind skin biopsy. Counseling on the limitations and data interpretation. 2) Post biopsy wound care. 3) Contact ordering physician in ~ 3-4 weeks for results. GE LABORER documented in this encounter Progress Notes * Roberto Panchal MD PhD - 10/08/2020 9:00 AM CST The indication for the skin punch biopsy to evaluate for small fiber peripheral neuropathy and myalgias and the procedure itself were explained. He was counseled on the relationship between sensory symptoms and small fiber neuropathy. He was advised on the interpretation and limitations of intradermal nerve fiber density measurement. Two 3.5 millimeter biopsies were taken 10 centimeters above the ankle and one biopsy was taken 10 centimeters above the knee after local 1% lidocaine with epinephrine anesthesia . Hemostasis was obtained with pressure and a bandage. There were no complications. The patient tolerated the procedure well. Roberto Panchal MD, PhD Neuromuscular Section GE LABORER documented in this encounter Plan of Treatment Pending Results Name Type Priority Associated Diagnoses Date/Time Neuromuscular Testing ([facility]) Pathology and Cytology Routine Myalgia Chronic arthralgias of knees and hips 10/08/2020 12:00 AM GARAGE LABORER Scheduled Procedures Name Priority Associated Diagnoses Date/Ti nd COLONOSCOPY Encounter for screening for colorectal cancer in high risk patient Family history of rectal cancer documented as of this encounter Visit Diagnoses Diagnosis Myalgia- Primary Unspecified myalgia and myositis Chronic arthralgias of knees and hips documented in this encounter Care Teams House Rn Relationship Specialty Start Date End Date Guero Colunga DO PCP - General Internal Medicine 03/22/19 04/18/23 Amber Montesinos RN Dumbwaiter Operator Transplant 11/17/19 Jil Duncan MD Consulting Physician Infectious Diseases 01/10/20 Anita Gillespie MD Medical Oncologist/Russian Language Professor Medical Oncology 10/07/20 documented as of this encounter
--- OUTSIDE RECORDS SUMMARY | 2024-10-28 06:18 | XMS_ITS | Encounter Summary ---
Author Organization [facility] Address [address] [place] [address] Phone Care Team Providers Care Boom Stick Man Name Role Phone Guero Colunga DO Primary Care Provider [phone] Amber Montesinos RN Unavailable [phone] Jil Duncan MD Unavailable [phone] Anita Gillespie MD Unavailable [phone] Encounter Details Date Type Department Care Team (Late st Contact Info) Description 10/08/2020 Orders Only [facility] Oncology [address] 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 Gender Identity Not on file Sexual Orientation Straight 08/22/2021 9: 23 AM CDT documented as of this encounter Plan of Treatment Scheduled Procedures Name Priority Associated Diagnoses Date/Ti me COLONOSCOPY Encounter for screening for colorectal cancer in high risk patient Family history of rectal cancer documented as of this encounter Visit Diagnoses Not on filedocumented in this encounter Care Teams Boom Stick Man Relationship Specialty Start Date End Date Guero Colunga DO PCP - General Internal Medicine 03/22/19 04/18/23 Amber Montesinos, RN Meat Scrubber Transplant 11/17/19 Jil Duncan MD Consulting Physician Infectious Diseases 01/10/20 Anita Gillespie MD Medical Oncologist/Keno Attendant Medical Oncology 10/07/20 documented as of this encounter
--- OUTSIDE RECORDS SUMMARY | 2024-10-28 06:18 | XMS_ITS | Encounter Summary ---
Author Organization [facility] Address [address] [place] [address] Phone Care Team Providers Care Final Inspector Motorcyles Name Role Phone Guero Colunga DO Primary Care Provider [phone] Amber Montesinos RN Unavailable [phone] Jil Duncan MD Unavailable [phone] Anita Gillespie MD Unavailable [phone] Encounter Details Date Type Department Care Team (Late st Contact Info) Description 10/08/2020 Orders Only [facility] [address] [facility] Advanced Medicine 7th [place] [address] [place] [id number] Nancy Butler, AIDEN [address] DIV IM MEDICAL ONCOLOGY, [address] [place] [address] Social History Tobacco Use Types Packs/Day Years Used Date Smoking Tobacco: Never Smokeless Tobacco: Current Chew Alcohol Use Standard Drinks/Week Comments Yes 0 (1 standard drink = 0.6 oz pur e alcohol) occassional Sex and Gender Information Value Date Recorded Sex Assigned at Not on file 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 Gender Identity Not on file Sexual Orientation Straight 08/22/2021 9: 23 AM CDT documented as of this encounter Plan of Treatment Scheduled Procedures Name Priority Associated Diagnoses Date/Ti me COLONOSCOPY Encounter for screening for colorectal cancer in high risk patient Family history of rectal cancer documented as of this encounter Visit Diagnoses Not on filedocumented in this encounter Care Teams Final Inspector Motorcyles Relationship Specialty Start Date End Date Guero Colunga DO PCP - General Internal Medicine 03/22/19 04/18/23 Amber Montesinos RN [employer] Laminating Operator Transplant 11/17/19 Jil Duncan MD Consulting Physician Infectious Diseases 01/10/20 Anita Gillespie MD Medical Oncologist/Health Center Assistant Medical Oncology 10/07/20 documented as of this encounter
--- OUTSIDE RECORDS SUMMARY | 2024-10-28 06:18 | XMS_ITS | Encounter Summary ---
Author Organization [facility] Healthcare Address [address] [place] [address] Care Team Providers Care Agricultural Specialist Name Role Phone Guero Coulnga Primary Care Provider [phone] Amber Montesinos RN Unavailable [phone] Jil Duncan MD Unavailable [phone] Reason for Referral * Diagnostic Imaging (Routine) - Closed Specialty Diagnoses / Procedures Referred By Sascha rey Referred To Contact Radiology Diagnoses History of liver transplant (CMS/HCC) (HCC) Liver abscess LFT elevation Procedures CT Abdomen 3 Phase Theodore Gresham MD Phone: tel: fax: [address] [address] Referral ID Status Reason Start Date Expiration Date Visits Re quested Visits Authorized [id number] Closed 04/09/2020 10/19/2021 1 1 OPERATOR Reason for Visit * Diagnostic Imaging (Routine) - Closed Specialty Diagnoses / Procedures Referred By Sascha rey Referred To Contact Radiology Diagnoses History of liver transplant (CMS/HCC) (HCC) Liver abscess LFT elevation Procedures CT Abdomen 3 Phase Theodore Gresham MD Phone: tel: fax: [address] [address] [facility] [place] [address] Referral ID Status Reason Start Date Expiration Date Visits Re quested Visits Authorized [id number] Closed 04/09/2020 10/19/2021 1 1 Encounter Details Date Type Department Care Team (Latest Contact Info) Description 10/02/2020 9:26 AM SLIP OPERATOR - 10/02/2020 10:05 AM SLIP OPERATOR Hospital Encounter [facility] [address] [place] [id number] Theodore Gresham MD [address] [facility] [address] [place] [address] History of liver transplant (CMS/HCC); Liver abscess; LFT elevation Discharge Disposition: Discharge to home or self care Social History Tobacco Use Types Packs/Day Years Used Date Smoking Tobacco: Never Smokeless Tobacco: Current Chew Alcohol Use Standard Drinks/Week Comments Yes 0 (1 standard drink = 0.6 oz pur e alcohol) occassional Sex and Gender Information Value Date Recorded Sex Assigned at Not on file Legal Sex Male 6:28 AM SLIP OPERATOR Gender Identity Not on file Sexual Orientation Straight 08/22/2021 9: 23 AM CDT documented as of this encounter Medications at Time of Discharge tacrolimus (PROGRAF) 0.5 mg capsule Take 1 capsule (0.5 mg total) by mouth 2 (two) times a day 60 capsule 11 05/27/2020 06/25/2021 documented as of this encounter Discharge Disposition [...] Priority Date/Time Associated Diagnosis Comments CT ABDOMEN 3 PHASE Schedule Routine, Read Routine (OP Routine) 10/02/2020 10:29 AM SLIP OPERATOR History of liver transplant (CMS/HCC) Liver abscess LFT elevation documented in this encounter Results * CT Abdomen 3 Phase (10/02/2020 10:29 AM SLIP OPERATOR) Anatomical Region Laterality Modality Abdomen N/A Computed Tomogra phy 10/02/2020 11:4 5 AM SLIP OPERATOR Impressions 10/02/2020 11:45 AM SLIP OPERATOR 1. Continued decrease in size of a segment 4B lesion. No new hepatic lesions. 2. Interval increase in size/number of bilateral pulmonary nodules within the visualized lung bases. Findings could represent a infectious/inflammatory process or potentially recurrent/progressive PTLD involving the lungs. Recommend further assessment with dedicated chest CT. 3. Unchanged extensive abdominal lymphadenopathy and partially imaged mediastinal/hilar lymphadenopathy. Electronically signed by: Swapna Godoy M.D. Narrative 10/02/2020 11:45 AM SLIP OPERATOR EXAMINATION: CT of the abdomen with intravenous contrast. 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 Follow-up segment 4B lesion, which was biopsied on 02/02/2020, pathology demonstrating necrosis, chronic inflammation, and no lymphoid proliferation or other evidence of malignancy TECHNIQUE: Liver protocol. ??Computed axial tomographic images of the abdomen were obtained in the arterial phase and in portal venous and delayed phases. ??There were no complications after the intravenous administration of 100 ??cc Optiray 350. COMPARISON: 04/05/2020 FINDINGS: Postsurgical changes of prior orthotopic liver transplant are again noted. Over the prior 2 examinations, continued interval decrease in size and conspicuity of a segment 4B lesion, measuring today approximately 7 x 4 mm (series 5, image 60) previously 1.1 x 0.8 cm. Some mild pneumobilia is seen. No new focal hepatic lesion or intrahepatic biliary dilatation. Hepatic arterial vasculature is seen. Portal and hepatic veins appear patent. Visualized lung bases demonstrate numerous bilateral pulmonary nodules, which appear increased in size and number from visualized lung bases on 04/05/2020. For reference, a 7 x 6 mm subpleural right lower lobe nodule (series 6, image 18) previously 6 x 4 mm. There is incompletely right hilar and mediastinal lymphadenopathy just posterior to the right inferior pulmonary vein. Imaged portions of the mediastinal adenopathy appears similar compared to prior study. There is extensive retroperitoneal, gastrohepatic, and mesenteric lymphadenopathy which appears overall similar in size and extent compared to prior CT. Anterior cardiophrenic lymph nodes also appear similar. Spleen and gallbladder are surgically absent. Pancreas unremarkable. Adrenal glands are normal. Abdominal aorta is normal in caliber. Visualized portions of the bowel are nonobstructed. Kidneys normal. No suspicious osseous lesion. Degenerative changes are noted in the lumbar spine. Procedure Note Swapna Godoy MD - 10/02/2020 EXAMINATION: CT of the abdomen with intravenous contrast. HISTORY: Status post 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 Follow-up segment 4B lesion, which was biopsied on 02/02/2020, pathology demonstrating necrosis, chronic inflammation, and no lymphoid proliferation or other evidence of malignancy TECHNIQUE: Liver protocol. Computed axial tomographic images of the abdomen were obtained in the arterial phase and in portal venous and delayed phases. There were no complications after the intravenous administration of 100 cc Optiray 350. COMPARISON: 04/05/2020 FINDINGS: Postsurgical changes of prior orthotopic liver transplant are again noted. Over the prior 2 examinations, continued interval decrease in size and conspicuity of a segment 4B lesion, measuring today approximately 7 x 4 mm (series 5, image 60) previously 1.1 x 0.8 cm. Some mild pneumobilia is seen. No new focal hepatic lesion or intrahepatic biliary dilatation. Hepatic arterial vasculature is seen. Portal and hepatic veins appear patent. Visualized lung bases demonstrate numerous bilateral pulmonary nodules, which appear increased in size and number from visualized lung bases on 04/05/2020. For reference, a 7 x 6 mm subpleural right lower lobe nodule (series 6, image 18) previously 6 x 4 mm. There is incompletely right hilar and mediastinal lymphadenopathy just posterior to the right inferior pulmonary vein. Imaged portions of the mediastinal adenopathy appears similar compared to prior study. There is extensive retroperitoneal, gastrohepatic, and mesenteric lymphadenopathy which appears overall similar in size and extent compared to prior CT. Anterior cardiophrenic lymph nodes also appear similar. Spleen and gallbladder are surgically absent. Pancreas unremarkable. Adrenal glands are normal. Abdominal aorta is normal in caliber. Visualized portions of the bowel are nonobstructed. Kidneys normal. No suspicious osseous lesion. Degenerative changes are noted in the lumbar spine. IMPRESSION: 1. Continued decrease in size of a segment 4B lesion. No new hepatic lesions. 2. Interval increase in size/number of bilateral pulmonary nodules within the visualized lung bases. Findings could represent a infectious/inflammatory process or potentially recurrent/progressive PTLD involving the lungs. Recommend further assessment with dedicated chest CT. 3. Unchanged extensive abdominal lymphadenopathy and partially imaged mediastinal/hilar lymphadenopathy. Electronically signed by: Swapna Godoy M.D. Theodore Gresham MD IMG CT PROCEDURES Final Re sult documented in this encounter Visit Diagnoses Diagnosis History of liver transplant (CMS/HCC) (HCC) Liver replaced by transplant Liver abscess Abscess of liver LFT elevation documented in this encounter Administered Medications Inactive Administered Medications - up to 3 most recent administrations Medication Order MAR Action Action Date Dose Rate Site ioversoL (OPTIRAY 350) syringe syringe 125 mL 125 mL, intravenous, Once in imaging, contrast, Starting on Wed10/02/20 at 1024, For 1 dose Given 10/02/2020 10:27 AM SLIP OPERATOR 125 mL documented in this encounter Care Teams Agricultural Specialist Relationship Specialty Start Date End Date Guero Colunga DO PCP - General Internal Medicine 03/22/19 04/18/23 Amber Montesinos, SHAILESH Case Aide Transplant 11/17/19 Jil Duncan MD Consulting Physician Infectious Diseases 01/10/20 documented as of this encounter
--- OUTSIDE RECORDS SUMMARY | 2024-10-28 06:18 | XMS_ITS | Encounter Summary ---
Author Organization [facility] Healthcare Address [address] [place] [address] Care Team Providers Care Nurse Anesthetist Name Role Phone Gueor Colunga DO Primary Care Provider [phone] Amber Montesinos RN Unavailable [phone] Jil Duncan MD Unavailable [phone] Anita Gillespie MD Unavailable [phone] Encounter Details Date Type Department Care Team (Late st Contact Info) Description 11/14/2020 Telephone [facility] Transplant Liver [address] [address] [phone] [place] [address] Amber Montesinos RN Social History Tobacco Use Types Packs/Day Years Used Date Smoking Tobacco: Never Smokeless Tobacco: Current Chew Alcohol Use Standard Drinks/Week Comments Yes 0 (1 standard drink = 0.6 oz pur e alcohol) occassional Sex and Gender Information Value Date Recorded Sex Assigned at Not on file Legal Sex Male 6:28 AM WEIGHT YARDAGE CHECKER Gender Identity Not on file Sexual Orientation Straight 08/22/2021 9: 23 AM CDT documented as of this encounter Miscellaneous Notes * Telephone Encounter - Amber Vargas RN - 11/14/2020 1:52 PM CST Labs reviewed with Dr. Gresham. Patient will continue on monthly labs for now. Will update SO with [facility]. 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 Occurrences starting 11/14/2020 until 11/14/2021 Tacrolimus level trough Lab Routine History of liver transplant (CMS/HCC) 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 Occurrences starting 11/14/2020 until 11/14/2021 CMV DNA QN, PCR Blood Microbiology Routine History of liver transplant (CMS/HCC) 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 Occurrences starting 11/14/2020 until 11/14/2021 Scheduled Procedures Name Priority Associated Diagnoses Date/Ti me COLONOSCOPY Encounter for screening for colorectal cancer in high risk patient Family history of rectal cancer documented as of this encounter Visit Diagnoses Diagnosis History of liver transplant (CMS/HCC) (HCC)- Primary 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
--- OUTSIDE RECORDS SUMMARY | 2024-10-28 06:18 | XMS_ITS | Encounter Summary ---
Author Organization [facility] Address [address] [place] [address] Phone Care Team Providers Care Mechanical Designer Name Role Phone Guero Colunga DO Primary Care Provider [phone] Amber Montesinos RN Unavailable [phone] Jil Duncan MD Unavailable [phone] Anita Gillespie MD Unavailable [phone] Encounter Details Date Type Department Care Team (Latest Contact Info) Description 11/06/2020 8:45 AM CASE PLANNER Office Visit [facility] Oncology [address] [facility] 7th [place] [address] [place] [address] 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); Hypogammaglobulinemia (CMS/HCC); High grade B-cell lymphoma (CMS/HCC) Social History Tobacco Use Types Packs/Day Years Used Date Smoking Tobacco: Never Smokeless Tobacco: Current Chew Alcohol Use Standard Drinks/Week Comments Yes 0 (1 standard drink = 0.6 oz pur e alcohol) occassional Sex and Gender Information Value Date Recorded Sex Assigned at Not on file Legal Sex Male 6:28 AM CASE PLANNER Gender Identity Not on file Sexual Orientation Straight 08/22/2021 9: 23 AM CDT documented as of this encounter Last Filed Vital Signs Vital Sign Reading Time Taken Comments Blood Pressure 121/75 11/06/2020 8:00 AM CASE PLANNER Pulse 83 11/06/2020 8:00 AM CASE PLANNER Temperature 36.8 ??C (98.2 ??F) 11/06/2020 7:58 AM CS T Respiratory Rate 18 11/06/2020 7:58 AM CASE PLANNER Oxygen Saturation 98% 11/06/2020 8:00 AM CASE PLANNER Inhaled Oxygen Concentration - - Weight 58.3 kg (128 lb 9.6 oz) 11/06/2020 7:58 AM CASE PLANNER Height - - Body Mass Index 19.55 10/08/2020 8:52 AM CASE PLANNER documented in this encounter Patient Instructions * Patient Instructions* Samreen Greene RN - 11/06/2020 8:45 AM CASE PLANNER Images from the original note were not included. COVID-19 Information: https://www.bjc.org/coronavirus People at Risk for Serious Illness from COVID-19: https://www.cdc.gov/coronavirus/2019-ncov/specific -groups/rfrh-ttss-gzifxjwsphzzq.html More Resources ??? World Health Organization (WHO): https://www.who.int/emergencies/diseases/izlbb-lutcrtnrxly-2514 ??? CDC What Do You Need to Know Factsheet: https://www.cdc.gov/coronavirus/2019-ncov/downloads/0103-tcmg-tvoclpyfl.pdf PLANNER documented in this encounter Progress Notes * Chapo Cabezas MD - 11/06/2020 12:00 AM CST PATIENT NAME: ADI NICHOLS : 1995 JUSTEN: 11/06/2020 DIAGNOSES: 1. 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 2. 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 3. Bilateral pulmonary emboli diagnosed on 10/19/2017. TREATMENT AND DISEASE COURSE: 1. R-CHOP x 1, 08/25/2017. 2. Dose adjusted EPOCH-R x 5, 09/15/2017 - 12/2017. Post-C2 PET: AK (5PS = 4), CR post C5 3. [...] infiltration without evidence of B or T-cell lymphoma INTERVAL HISTORY: Mr. Nichols returns to the [facility] for continued follow-up of his PTLD. We last saw him 10/02/2020. At that time, he had been having pain and difficulty lifting his arms and there was concern for some neuromuscular pathology he had and entered in enterovirus PCR which was negative. 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 He was supposed to go for a muscle biopsy, but ended up getting a skin biopsy performed instead, which did not provide any diagnostic information. He received IVIG on 10/08/2020 and subsequently had complete resolution of his arthralgias and myalgias and is back to his functional baseline. He feels that his lymphadenopathy is generally the same, although the one at the right angle of the mandible he feels it is slightly bigger. He has had some issues with epistaxis withinthe past week, but attributes it to dry air and has started to use a humidifier with improvement. He was prescribed [facility] Nasal [place], but has yet to pick it up. Otherwise, he denies any fevers, chills, night sweats, change in appetite, appetite, abdominal pain, nausea, vomiting. PHYSICAL EXAM: Vital Signs: Blood pressure 107/67, pulse 76, respirations 18, temperature 36.5, SpO2 of 98%. General: Well-appearing gentleman, resting comfortably. Neck: Supple. [...] in the upper and lower extremities bilaterally. LAB DATA: CMP with a stably elevated alk phos of 431, AST mildly elevated at 69, ALT 64, GGT 287. LDH 250. White blood cell count 14.7, ANC 5.3, ALC 6.0, absolute monocyte count 2.3. IgG 449. [place] 4.2. CMV DNA PCR is pending, but was 2916 the beginning of October. IMAGING: A 3-phase abdominal CT performed 10/02/2020 demonstrated decrease in segment 4B lesion with no new hepatic lesions and increase in size and number of bilateral pulmonary nodules that are subcentimeter. ASSESSMENT AND PLAN: 1. History of C-Myc positive posttransplant lymphoproliferative disorder, EBV positive, stage EMY, IPI 3 for stage, LDH, extranodal sites. This is a 25-year-old man who is now over 3 years status post dose adjusted EPOCH-R, initially achieving complete metabolic remission. He continues to have diffuse lymphadenopathy, which has been stable and unchanged. It has been biopsied multiple times and has not demonstrated recurrent disease. He had a PET scan performed the last visit, which showed that everything was relatively stable. We will continue to follow-up with him every 3 months and perform imaging if there is concern for recurrence. 2. Possible inflammatory arthritis. He had complained of arthralgias at the previous visit. Interestingly, his PET-CT demonstrated some mildly increased FDG avidity in those locations. Once he was treated with IVIG, those symptoms went away. It is unclear if the IVIG led to some immunomodulation which led to this response. We will continue to monitor this for now. He did not end up needing or receiving the muscle biopsy. 3. 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 We started him on IVIG and are going to switch to the subcutaneous administration at home andare in the process of getting insurance approval for that. 4. History of liver transplant. He continues to follow Dr. Gresham and remains on tacrolimus 0.5 mg twice daily. 5. Pulmonary nodules. He was identified to have some pulmonary nodules at the bases of his lungs that were increasing in number on his last CT scan. He has a referral to Pulmonology in December. 6. Cytomegalovirus viremia. He has completed a course of IV ganciclovir and valganciclovir. His CMVlevel stable. There appears to be no indication to treat him at this point. Hopefully, the additionof IVIG will allow him to clear it. 7. Follow-up. We will see him back in 3 months. He knows to call with any questions or concerns. ELECTRONICALLY SIGNED - 11/08/2020 02:42 PM Chapo Cabezas M.D. Fellow I have seen and examined the patient and agree with the findings and plan of care as documented by and/or discussed with Chapo Cabezas M.D.. ELECTRONICALLY SIGNED - 11/10/2020 07:46 PM Anita Gillespie M.D. improvement engineer [facility] Chair in Medical Oncology SRG/SREEDHAR/ cc: LENO GRESHAM MD [address] [facility] [address], [place] [address] / GARRY FRANKS MD [address] [facility] [address] [place] [address] LINDA CHAPA MD [address] [place] [address] / GUERO COLUNGA DO [address] [place] [address] / PLANNER documented in this encounter Plan of Treatment Scheduled Procedures Name Priority Associated Diagnoses Date/Ti me COLONOSCOPY Encounter for screening for colorectal cancer in high risk patient Family history of rectal cancer documented as of this encounter Results * Flow Leukemia/Lymphoma Blood (02/05/2021 8:36 AM CDT) Pathologist [facility] Leukemia/Lymp josé manuel Result See separate Surgical Pathology report. [facility] Blood specimen (specimen) 02/05/2021 8:36 AM CDT 02/05/2021 9:02 AM CDT Result [facility] Anita Gillespie MD LAB PATHOLOGY ORDERABLES F inal Result Performing Organization Address City/[facility]/ZIP Co de Phone Number [facility] Department [place] [address] * IgG (02/05/2021 8:36 AM CDT) Pathologist [facility] Immunoglobulin G 849.0 700.0 - 1,600.0 mg/dL [facility] Blood specimen (specimen) 02/05/2021 8:36 AM CDT 02/05/2021 8:50 AM CDT Result [facility] Anita Gillespie MD LAB BLOOD ORDERABLES Final Result [facility] Department [place] [address] * (ABNORMAL) Lactate dehydrogenase (LD) (02/05/2021 8:36 AM CDT) Pathologist [facility] Lactate dehydrogenase (LDH) 308(H) 100 - 250 Units/L [facility] Comment:Testing performed by : [facility], [address] [place] [phone] Blood specimen (specimen) 02/05/2021 8:36 AM CDT 02/05/2021 8:37 AM CDT Anita Gillespie MD LAB BLOOD ORDERABLES Final Result [facility] Department [place] [address] * (ABNORMAL) Comprehensive metabolic panel (02/05/2021 8:36 AM CDT) Sodium 140 135 - 145 mmol/L [facility] Comment:Testing performed by : [facility], [address] [place] [phone] Potassium, pl 4.2 3.3 - 4.9 mmol/L [facility] Comment:Testing performed by : [facility], [address] [place] [phone] Chloride 106 97 - 110 mmol/L [facility] Comment:Testing performed by : [facility], [address] [place] [phone] CO2 28 22 - 32 mmol/L [facility] Comment:Testing performed by : [facility], [address] [place] [phone] Anion gap 6 2 - 15 mmol/L [facility] Comment:Testing performed by : [facility], [address] [place] [phone] BUN 9 8 - 25 mg/dL [facility] Comment:Testing performed by : [facility], [address] [place] [phone] Creatinine 0.80 0.80 - 1.30 mg/dL [facility] Comment:Testing performed by : [address] [phone] Glucose 99 70 - 199 mg/dL [facility] Comment: Interpretive Data Fasting glucose >/= [...] was last revised 2017. Testing performed by: [facility], [address] [place] [phone] Calcium 9.3 8.5 - 10.3 mg/dL [facility] Comment:Testing performed by : [facility], [address] [place] [phone] Bilirubin, total 0.6 0.1 - 1.2 mg/dL [facility] Comment:Testing performed by : [facility], [address] [place] [phone] Protein, pl 6.6 6.5 - 8.5 g/dL [facility] Comment:Testing performed by : [facility], [address] [place] [phone] Albumin 3.9 3.5 - 5.0 g/dL [facility] Comment:Testing performed by : [facility], [address] [place] [phone] Alk phos 383(H) 40 - 130 Units/L [facility] Comment:Testing performed by : [facility], [address] [place] [phone] ALT 68(H) 7 - 55 Units/L [facility] Comment:Testing performed by : [facility], [address] [place] [phone] AST 75(H) 10 - 50 Units/L [facility] Comment:Testing performed by : [facility], [address] [place] [phone] Blood specimen (specimen) 02/05/2021 8:36 AM CDT 02/05/2021 8:37 AM CDT us Anita Gillespie MD LAB BLOOD ORDERABLES Final Result [facility] Department [place] [address] * (ABNORMAL) CBC with auto differential (02/05/2021 8:36 AM CDT) WBC 5.1 3.8 - 9.8 K/cumm [facility] Comment:Testing performed by : [facility], [address] [place] [address] Hgb 14.8 13.8 - 17.2 g/dL [facility] Comment:Testing performed by : [facility], [address] [place] [address] Hct 42.6 40.7 - 50.3 % [facility] Comment:Testing performed by : [place] [address] Plt 180 140 - 440 K/cumm [facility] Comment:Testing performed by : [facility], [address] [place] [address] MPV 8.7 6.8 - 10.4 fL [facility] Comment:Testing performed by : [place] [address] RBC 4.41(L) 4.50 - 5.70 M/cumm [facility] Comment:Testing performed by : [place] [address] MCV 96.7 80.0 - 97.6 fL [facility] Comment:Testing performed by : [place] [address] MCH 33.5 26.7 - 33.7 pg [facility] Comment:Testing performed by : [place] [address] MCHC 34.7 32.7 - 35.5 g/dL [facility] Comment:Testing performed by : [place] [address] RDW CV 15.7(H) 11.8 - 14.6 % [facility] Comment:Testing performed by : [place] [address] NRBC abs 0.00 0.00 - 0.01 K/cumm [facility] Comment:Testing performed by : [place] [address] Blood specimen (specimen) 02/05/2021 8:36 AM CDT 02/05/2021 8:37 AM CDT Aniat Gillespie MD LAB BLOOD ORDERABLES Final Result Performing Organization Address [facility] de Phone Number [facility] Laboratories [place], [place] [id number] * (ABNORMAL) IgG (11/06/2020 7:54 AM CASE PLANNER) Pathologist [facility] Immunoglobulin G 449.0(L) 700.0 - 1,600.0 mg/dL [facility] Blood specimen (specimen) 11/06/2020 7:54 AM CASE PLANNER 11/06/2020 8:06 AM CASE PLANNER Anita Gillespie MD LAB BLOOD ORDERABLES Final Result Performing Organization Address [facility] de Phone Number [facility] [place] [address] * Lactate dehydrogenase (LD) (11/06/2020 7:54 AM CASE PLANNER) [facility] Lactate dehydrogenase (LDH) 250 100 - 250 Units/L [facility] Comment:Testing performed by : [facility], [address] [place] [phone] Blood specimen (specimen) 11/06/2020 7:54 AM CASE PLANNER 11/06/2020 7:56 AM CASE PLANNER Result [facility] Anita Gillespie MD LAB BLOOD ORDERABLES Final Result Performing Organization Address [facility] de Phone Number [facility] [place], [place] [id number] * (ABNORMAL) CBC with auto differential (11/06/2020 7:54 AM CASE PLANNER) [facility] WBC 14.7(H) 3.8 - 9.8 K/cumm [facility] Comment:Testing performed by : [facility], [address] [place] [phone] Hgb 14.3 13.8 - 17.2 g/dL [facility] Comment:Testing performed by : [facility], [address] [place], [place] [phone] Hct 42.6 40.7 - 50.3 % [facility] Comment:Testing performed by : [facility], [address] [place] [address] Plt 238 140 - 440 K/cumm [facility] Comment:Testing performed by : [place] [address] MPV 8.1 6.8 - 10.4 fL [facility] Comment:Testing performed by : [place] [address] RBC 4.48(L) 4.50 - 5.70 M/cumm [facility] Comment:Testing performed by : [place] [address] MCV 95.0 80.0 - 97.6 fL [facility] Comment:Testing performed by : [facility], [address] [place] [address] MCH 31.9 26.7 - 33.7 pg [facility] Comment:Testing performed by : [place] [address] MCHC 33.6 32.7 - 35.5 g/dL [facility] Comment:Testing performed by : [place] [address] RDW CV 16.2(H) 11.8 - 14.6 % [facility] Comment:Testing performed by : [facility], [address] [place] [address] NRBC abs 0.01 0.00 - 0.01 K/cumm [facility] Comment:Testing performed by : [place] [address] Blood specimen (specimen) 11/06/2020 7:54 AM CASE PLANNER 11/06/2020 7:56 AM CASE PLANNER us Anita Gillespie MD LAB BLOOD ORDERABLES Final Result [facility] Department [place] [address] * (ABNORMAL) Comprehensive metabolic panel (11/06/2020 7:54 AM CASE PLANNER) Sodium 140 135 - 145 mmol/L [facility] Comment:Testing performed by : [facility], [address] [place] [phone] Potassium, pl 4.0 3.3 - 4.9 mmol/L [facility] Comment:Testing performed by : [facility], [address] [place] [phone] Chloride 104 97 - 110 mmol/L [facility] Comment:Testing performed by : [facility], [address] [place] [phone] CO2 29 22 - 32 mmol/L [facility] Comment:Testing performed by : [facility], [address] [place] [phone] Anion gap 7 2 - 15 mmol/L [facility] Comment:Testing performed by : [facility], [address] [place] [phone] BUN 11 8 - 25 mg/dL [facility] Comment:Testing performed by : [facility], [address] [place] [phone] Creatinine 0.85 0.80 - 1.30 mg/dL [facility] Comment:Testing performed by : [facility], [address] [place] [phone] Glucose 106 70 - 199 mg/dL [facility] Comment: Interpretive Data Fasting glucose >/= [...] was last revised 2017. Testing performed by: [facility], [address] [place] [phone] Calcium 7.7(L) 8.5 - 10.3 mg/dL [facility] Comment:Testing performed by : [facility], [address] [place] [phone] Bilirubin, total 0.5 0.1 - 1.2 mg/dL [facility] Comment:Testing performed by : [facility], [address] [place] [phone] Protein, pl 6.4(L) 6.5 - 8.5 g/dL [facility] Comment:Testing performed by : [facility], [address] [place] [phone] Albumin 4.2 3.5 - 5.0 g/dL [facility] Comment:Testing performed by : [facility], [address] [place] [phone] Alk phos 431(H) 40 - 130 Units/L [facility] Comment:Testing performed by : [facility], [address] [place] [phone] ALT 64(H) 7 - 55 Units/L [facility] Comment:Testing performed by : [facility], [address] [place] [phone] AST 69(H) 10 - 50 Units/L [facility] Comment:Testing performed by : [facility], [address] [place] [phone] Blood specimen (specimen) 11/06/2020 7:54 AM CASE PLANNER 11/06/2020 7:56 AM CASE PLANNER us Anita Gillespie MD LAB BLOOD ORDERABLES Final Result [facility] Department [place] [address] documented in this encounter Visit Diagnoses Diagnosis 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 Hypogammaglobulinemia (HCC) Unspecified hypogammaglobulinemia High grade B-cell lymphoma (HCC) documented in this encounter Orders Appointment Requests Count Last Ordered Date Fi rst Ordered Date [facility] CLINIC APPOINTMENT REQUEST 2 021 11/06/2020 [facility] LAB APPOINTMENT 1 02/05/2021 documented in this encounter Care Teams Mechanical Designer Relationship Specialty Start Date End Date Guero Colunga DO PCP - General Internal Medicine 03/22/19 04/18/23 Amber Montesinos, SHAILESH Gas Turbine Powerplant Mechanic Transplant 11/17/19 Jil Duncan MD Consulting Physician Infectious Diseases 01/10/20 Anita Gillespie MD Medical Oncologist/Hearing Stenographer Medical Oncology 10/07/20 documented as of this encounter
--- OUTSIDE RECORDS SUMMARY | 2024-10-28 06:18 | XMS_ITS | Encounter Summary ---
Author Organization [facility] Address [address] [place] [address] Phone Care Team Providers Care Waste Water Or Water Plant Operator Name Role Phone Guero Colunga DO Primary Care Provider [phone] Amber Montesinos RN Unavailable [phone] Jil Duncan MD Unavailable [phone] Reason for Visit * Reason Onset Date Comments LMOR to schedule needle bx 09/30/2020 Encounter Details Date Type Department Care Team (Late st Contact Info) Description 09/30/2020 Telephone [facility] Scheduling [address] [place] [address] Gloria Palmer BS LMOR to schedule needle bx Social History Tobacco Use Types Packs/Day Years Used Date Smoking Tobacco: Never Smokeless Tobacco: Never Alcohol Use Standard Drinks/Week Comments Yes 0 (1 standard drink = 0.6 oz pur e alcohol) occassional Sex and Gender Information Value Date Recorded Sex Assigned at Not on file Legal Sex Male 6:28 AM PSYCH RN Gender Identity Not on file Sexual Orientation Straight 08/22/2021 9: 23 AM CDT documented as of this encounter Miscellaneous Notes * Telephone Encounter - Gloria Palmer BS - 09/30/2020 3:19 PM PSYCH RN Gloria Rodriguez Dr. called at 3:20 PM on 09/30/2020 Chief Complaint Patient presents with ??? LMOR to schedule needle bx Thank you, ADAM Mejia H RN documented in this encounter Plan of Treatment Scheduled Procedures Name Priority Associated Diagnoses Date/Ti me COLONOSCOPY Encounter for screening for colorectal cancer in high risk patient Family history of rectal cancer documented as of this encounter Visit Diagnoses Not on filedocumented in this encounter Care Teams Waste Water Or Water Plant Operator Relationship Specialty Start Date End Date Guero Colunga DO PCP - General Internal Medicine 03/22/19 04/18/23 Amber Montesinos, SHAILESH Plumber Supervisor Transplant 11/17/19 Jil Duncan MD Consulting Physician Infectious Diseases 01/10/20 documented as of this encounter
--- OUTSIDE RECORDS SUMMARY | 2024-10-28 06:18 | XMS_ITS | Encounter Summary ---
Author Organization [facility] Healthcare Address [address] [place] [address] Care Team Providers Care Ring Barker Operator Name Role Phone Guero Colunga Primary Care Provider [phone] Amber Montesinos RN Unavailable [phone] Jil Duncan MD Unavailable [phone] Anita Gillespie MD Unavailable [phone] Encounter Details Date Type Department Care Team (Late st Contact Info) Description 10/21/2020 Telephone [facility] Transplant Liver [address] [facility] [phone] [place] [address] Jacquelyn Welsh Social History Tobacco Use Types Packs/Day Years Used Date Smoking Tobacco: Never Smokeless Tobacco: Current Chew Alcohol Use Standard Drinks/Week Comments Yes 0 (1 standard drink = 0.6 oz pur e alcohol) occassional Sex and Gender Information Value Date Recorded Sex Assigned at Not on file Legal Sex Male 6:28 AM CLINICAL LAW PROFESSOR Gender Identity Not on file Sexual Orientation Straight 08/22/2021 9: 23 AM CDT documented as of this encounter Miscellaneous Notes * Telephone Encounter - Amber Vargas RN - 10/21/2020 9:44 AM CST Returned call to Lori. Overton stating that patient is doing well after his first infusion of IVIG. Wediscussed reason for pulmonology consult. Reviewed nodules found on CT scan that Dr. Gillespie and Dr. Gresham would like for patient to follow up with pulm regarding. Discussed date of appointment.Patient will call their office if any develops any respiratory symptoms. Brooklynn stating patient is seeing Dr. Gillespie on 11/06/2020 and will be able to have his labs done then. ICAL LAW PROFESSOR * Telephone Encounter - Jacquelyn Welsh - 10/21/2020 8:22 AM CST Call pt's mom Brooklynn re: pulmonary appt [phone] ICAL LAW PROFESSOR documented in this encounter Plan of Treatment Scheduled Procedures Name Priority Associated Diagnoses Date/Ti me COLONOSCOPY Encounter for screening for colorectal cancer in high risk patient Family history of rectal cancer documented as of this encounter Visit Diagnoses Not on filedocumented in this encounter Care Teams Ring Barker Operator Relationship Specialty Start Date End Date Guero Colunga DO PCP - General Internal Medicine 03/22/19 04/18/23 Amber Montesinos RN Payroll Accountant Transplant 11/17/19 Jil Duncan MD Consulting Physician Infectious Diseases 01/10/20 Anita Gillespie MD Medical Oncologist/Nurse Advocate Medical Oncology 10/07/20 documented as of this encounter
--- OUTSIDE RECORDS SUMMARY | 2024-10-28 06:18 | XMS_ITS | Encounter Summary ---
Author Organization [facility] Healthcare Address [address] [place] [address] Care Team Providers Care Cup Machine Operator Name Role Phone Guero Colunga Primary Care Provider [phone] Amber Montesinos RN Unavailable [phone] Jil Duncan MD Unavailable [phone] Anita Gillespie MD Unavailable [phone] Encounter Details Date Type Department Care Team (Late st Contact Info) Description 10/07/2020 Telephone [facility] Transplant Liver [address] [facility] [address] [phone] [place] [address] Amber Montesinos RN Social History Tobacco Use Types Packs/Day Years Used Date Smoking Tobacco: Never Smokeless Tobacco: Current Chew Alcohol Use Standard Drinks/Week Comments Yes 0 (1 standard drink = 0.6 oz pur e alcohol) occassional Sex and Gender Information Value Date Recorded Sex Assigned at Not on file Legal Sex Male 6:28 AM DAMAGE INSIDE ADJUSTER Gender Identity Not on file Sexual Orientation Straight 08/22/2021 9: 23 AM CDT documented as of this encounter Miscellaneous Notes * Telephone Encounter - Amber Vargas RN - 10/07/2020 1:44 PM CST Placed call to patient and left VM letting them know that plan is to repeat labs in a month after IVIG infusion. Please call if any questions or concerns. Also let them know about pulmonology referral and to please call if questions regarding why referral was placed. GE INSIDE ADJUSTER documented in this encounter Plan of Treatment Scheduled Procedures Name Priority Associated Diagnoses Date/Ti me COLONOSCOPY Encounter for screening for colorectal cancer in high risk patient Family history of rectal cancer documented as of this encounter Visit Diagnoses Not on filedocumented in this encounter Care Teams Cup Machine Operator Relationship Specialty Start Date End Date Guero Colunga DO PCP - General Internal Medicine 03/22/19 04/18/23 Amber Montesinos RN Purchasing Supervisor Transplant 11/17/19 Jil Duncan MD Consulting Physician Infectious Diseases 01/10/20 Anita Gillespie MD Medical Oncologist/Mobile Architect Medical Oncology 10/07/20 documented as of this encounter
--- OUTSIDE RECORDS SUMMARY | 2024-10-28 06:18 | XMS_ITS | Encounter Summary ---
Author Organization [facility] Address [address] [place] [address] Phone Care Team Providers Care Dump Motorman Name Role Phone Guero Colunga DO Primary Care Provider [phone] Amber Montesinos RN Unavailable [phone] Jil Duncan MD Unavailable [phone] Anita Gillespie MD Unavailable [phone] Encounter Details Date Type Department Care Team (Late st Contact Info) Description 11/11/2020 Telephone [facility] Infectious Diseases [address] [place] [address] [address] [place] [address] Lisandra Auguste, ROD FINISHER [address] [place] [address] Social History Tobacco Use Types Packs/Day Years Used Date Smoking Tobacco: Never Smokeless Tobacco: Current Chew Alcohol Use Standard Drinks/Week Comments Yes 0 (1 standard drink = 0.6 oz pur e alcohol) occassional Sex and Gender Information Value Date Recorded Sex Assigned at Not on file 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 HEART Gender Identity Not on file Sexual Orientation Straight 08/22/2021 9: 23 AM CDT documented as of this encounter Ordered Prescriptions Prescription Sig Dispense Quantity Refills Last Filled Start Date End Date valGANciclovir (VALCYTE) 450 mg tabletIndications: cytomegalovirus disease Take 2 tablets (900 mg total) by mouth 2 (two) times a day for 21 days 84 tablet 11/11/2020 1 documented in this encounter Miscellaneous Notes * Telephone Encounter - Lisandra Auguste NP - 11/11/2020 9:59 AM MANAGER HEART 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 Will trial course of valgalcyclovir 900 mg PO BID x 3 weeks. Patient agreeable to plan, states he feels well with no complaints today. Will see in clinic in 3 weeks to reassess. GER HEART documented in this encounter Plan of Treatment Scheduled Procedures Name Priority Associated Diagnoses Date/Ti me COLONOSCOPY Encounter for screening for colorectal cancer in high risk patient Family history of rectal cancer documented as of this encounter Visit Diagnoses Not on filedocumented in this encounter Care Teams Dump Motorman Relationship Specialty Start Date End Date Guero Colunga DO PCP - General Internal Medicine 03/22/19 04/18/23 Ambre Montesinos RN Linux Security Administrator Transplant 11/17/19 Jil Duncan MD Consulting Physician Infectious Diseases 01/10/20 Anita Gillespie MD Medical Oncologist/Scenic Artist Medical Oncology 10/07/20 documented as of this encounter
--- OUTSIDE RECORDS SUMMARY | 2024-10-28 06:18 | XMS_ITS | Encounter Summary ---
Author Organization [facility] Address [address] [place] [address] Phone Care Team Providers Care Cooker Pie Filling Name Role Phone Guero Colunga DO Primary Care Provider [phone] Amber Montesinos RN Unavailable [phone] Jil Duncan MD Unavailable [phone] Anita Gillespie MD Unavailable [phone] Reason for Visit * Reason Onset Date Comments APPOINTMENT 12/26/2020 Encounter Details Date Type Department Care Team (Late st Contact Info) Description 12/26/2020 Telephone [facility] Infectious Diseases [address] [place] [address] Ny Griffin APPOINTMENT Social History Tobacco Use Types Packs/Day Years Used Date Smoking Tobacco: Never Smokeless Tobacco: Current Chew Alcohol Use Standard Drinks/Week Comments Yes 0 (1 standard drink = 0.6 oz pur e alcohol) occassional Sex and Gender Information Value Date Recorded Sex Assigned at Not on file Legal Sex Male 6:28 AM HOUSEKEEPING ASSISTANT Gender Identity Not on file Sexual Orientation Straight 08/22/2021 9: 23 AM CDT documented as of this encounter Miscellaneous Notes * Telephone Encounter - Daisy Martin - 12/27/2020 11:47 AM CST Pt going to call back with available times he can do a phone appt. Mom was not aware when he could because he has work EKEEPING ASSISTANT * Telephone Encounter - Ny Griffin - 12/26/2020 3:37 PM CST Daisy, See below EKEEPING ASSISTANT * Telephone Encounter - Lisandra Auguste NP - 12/26/2020 2:50 PM HOUSEKEEPING ASSISTANT He needs to be a Wednesday morning when Ige is in clinic. We can do a telephone visit on a Wednesday morning that week. EKEEPING ASSISTANT * Telephone Encounter - Ny Griffin - 12/26/2020 2:44 PM CST Tavares Fry advise EKEEPING ASSISTANT * Telephone Encounter - Daisy Martin - 12/26/2020 2:34 PM CST Pt's mom wishing to coordinate visits on 01/17. Is there anyway he could be seen that AM? Or possibly a telemed visit? EKEEPING ASSISTANT * Telephone Encounter - Ny Griffin - 12/26/2020 2:10 PM CST Marcoosmin Villa, Could you make his Mom's number the primary # in his chart? It is [phone] Thank you EKEEPING ASSISTANT * Telephone Encounter - Daisy Martin - 12/26/2020 1:44 PM CST Left VM for pt to call back and schedule appt EKEEPING ASSISTANT * Telephone Encounter - Daisy Martin - 12/26/2020 1:44 PM CST A user error has taken place: encounter opened in error, closed for administrative reasons. EKEEPING ASSISTANT * Telephone Encounter - PetrNy reddy - 12/26/2020 9:55 AM CST Please contact patient to schedule a return with [place] on a Wednesday am. Thank you EKEEPING ASSISTANT documented in this encounter Plan of Treatment Scheduled Procedures Name Priority Associated Diagnoses Date/Ti me COLONOSCOPY Encounter for screening for colorectal cancer in high risk patient Family history of rectal cancer documented as of this encounter Visit Diagnoses Not on filedocumented in this encounter Care Teams Cooker Pie Filling Relationship Specialty Start Date End Date Guero Colunga DO PCP - General Internal Medicine 03/22/19 04/18/23 Amber Montesinos, SHAILESH Insurance Claims Examiner Transplant 11/17/19 Jil Duncan MD Consulting Physician Infectious Diseases 01/10/20 Anita Gillespie MD Medical Oncologist/Motion Study Technician Medical Oncology 10/07/20 documented as of this encounter
--- OUTSIDE RECORDS SUMMARY | 2024-10-28 06:18 | XMS_ITS | Encounter Summary ---
Author Organization [facility] Address [address] [place] [address] Phone Care Team Providers Care Residential Supervisor Name Role Phone Guero Colunga DO Primary Care Provider [phone] Amber Montesinos RN Unavailable [phone] Jil Duncan MD Unavailable [phone] Encounter Details Date Type Department Care Team (Late st Contact Info) Description 10/02/2020 7:30 AM UNIT COORDINATOR Lab [facility] Oncology [facility] 7[address] [place] [address] [place] [address] 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); History of liver transplant (CMS/HCC); Elevated liver enzymes; Cytomegalovirus infection, unspecified cytomegaloviral infection type (CMS/HCC); Weakness; Chronic arthralgias of knees and hips Social History Tobacco Use Types Packs/Day Years Used Date Smoking Tobacco: Never Smokeless Tobacco: Current Chew Alcohol Use Standard Drinks/Week Comments Yes 0 (1 standard drink = 0.6 oz pur e alcohol) occassional Sex and Gender Information Value Date Recorded Sex Assigned at Not on file Legal Sex Male 6:28 AM UNIT COORDINATOR Gender Identity Not on file Sexual Orientation Straight 08/22/2021 9: 23 AM CDT documented as of this encounter Miscellaneous Notes * Result Encounter Note - JuabLisandra Houston NP - 10/03/2020 5:08 PM UNIT COORDINATOR Thanks Amber. Seems pretty stable from last draw. Ige, here is Beka's most recent CMV levels. Per last GI note he seems stable. He is undergoing muscle biopsy and eval for a neuromuscular disorder (possible myositis) and seems he will start IVIG after this biopsy. Let me know if there is anything additional needed. 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) CRP (ACUTE PHASE) Routine 10/02/2020 7:2 6 AM UNIT COORDINATOR 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) T4, FREE Routine 10/02/2020 7:26 AM UNIT COORDINATOR History of liver transplant (CMS/HCC) LACTATE DEHYDROGENASE Routine 10/02/2020 7:26 AM UNIT COORDINATOR 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) COMPREHENSIVE METABOLIC PANEL Routine 10/02/2020 7:26 AM UNIT COORDINATOR 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) TACROLIMUS LEVEL, TROUGH Routine 10/02/2020 7:26 AM UNIT COORDINATOR History of liver transplant (CMS/HCC) ERYTHROCYTE SEDIMENTATION RATE Routine 10/02/2020 7:26 AM UNIT COORDINATOR 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, [address] [place] [phone] Lymphocyte abs 4.9(H) 1.2 - 3.3 K/cumm [facility] Comment:Testing performed by : [facility], [address] [place] [phone] Monocyte abs 2.7(H) 0.2 - 1.2 K/cumm [facility] Comment:Testing performed by : [facility], [address] [place] [phone] Eosinophil abs 2.1(H) 0.0 - 0.5 K/cumm [facility] Comment:Testing performed by : [facility], [address] [place] [phone] Basophil abs 0.1 0.0 - 0.2 K/cumm [facility] Comment:Testing performed by : [facility], [address] [place] [phone] Neutrophil pct 52.7 % [facility] Comment: Interpretive Data Percent cell count reference ranges are not reported, since discordance with absolute values may lead to misinterpretation of CBC data. Current Interpretive Data was last revised on 2018. Testing performed by: [facility], [address] [place] [phone] Lymphocyte pct 23.7 % [facility] Comment: Interpretive Data Percent cell count reference ranges are not reported, since discordance with absolute values may lead to misinterpretation of CBC data. Current Interpretive Data was last revised on 2018. Testing performed by: [facility], [address] [place] [phone] Monocyte pct 12.8 % [facility] Comment:Testing performed by : [facility], [address] [place] [phone] Eosinophil pct 10.3 % [facility] Comment:Testing performed by : [facility], [address] [place] [phone] Basophil pct 0.5 % [facility] Comment:Testing performed by : [facility], [address] [place] [phone] Blood specimen (specimen) 10/02/2020 7:26 AM UNIT COORDINATOR 10/02/2020 7:28 AM UNIT COORDINATOR Result [facility] Anita Gillespie MD LAB BLOOD ORDERABLES Final Result Performing Organization Address [facility] de Phone Number [facility] Department [place] [address] * (ABNORMAL) CRP (acute phase) (10/02/2020 7:26 AM UNIT COORDINATOR) CRP 17.3(H) <=10.0 mg/L [facility] Blood specimen (specimen) 10/02/2020 7:26 AM UNIT COORDINATOR 10/02/2020 8:06 AM UNIT COORDINATOR Result [facility] Anita Gillespie MD LAB BLOOD ORDERABLES Final Result Performing Organization Address [facility] de Phone Number [facility] [place] [address] * (ABNORMAL) Lactate dehydrogenase (LD) (10/02/2020 7:26 AM UNIT COORDINATOR) Lactate dehydrogenase (LDH) 302(H) 100 - 250 Units/L [facility] Comment:Testing performed by : [facility], [address] [place] [phone] Blood specimen (specimen) 10/02/2020 7:26 AM UNIT COORDINATOR 10/02/2020 7:28 AM UNIT COORDINATOR Result [facility] Anita Gillespie MD LAB BLOOD ORDERABLES Final Result Performing Organization Address [facility]/ZIP Co de Phone Number [facility] Department [place] [address] * (ABNORMAL) Comprehensive metabolic panel (10/02/2020 7:26 AM UNIT COORDINATOR) Sodium 143 135 - 145 mmol/L [facility] Comment:Testing performed by : [facility], [address] [place] [phone] Potassium, pl 4.0 3.3 - 4.9 mmol/L [facility] Comment:Testing performed by : [facility], [address] [place] [phone] Chloride 106 97 - 110 mmol/L [facility] Comment:Testing performed by : [facility], [address] [place] [phone] CO2 27 22 - 32 mmol/L [facility] Comment:Testing performed by : [facility], [address] [place] [phone] Anion gap 10 2 - 15 mmol/L [facility] Comment:Testing performed by : [facility], [address] [place] [phone] BUN 9 8 - 25 mg/dL [facility] Comment:Testing performed by : [facility], [address] [place] [phone] Creatinine 0.77(L) 0.80 - 1.30 mg/dL [facility] Comment:Testing performed by : [facility], [address] [place] [phone] Glucose 82 70 - 199 mg/dL [facility] Comment: Interpretive Data Fasting glucose >/= [...] revised 2017. Testing performed by: [facility], [address] [place] [phone] Calcium 9.2 8.5 - 10.3 mg/dL [facility] Comment:Testing performed by : [facility], [address] [place] [phone] Bilirubin, total 0.5 0.1 - 1.2 mg/dL [facility] Comment:Testing performed by : [facility], [address] [place] [phone] Protein, pl 6.2(L) 6.5 - 8.5 g/dL [facility] Comment:Testing performed by : [facility], [address] [place] [phone] Albumin 4.3 3.5 - 5.0 g/dL [facility] Comment:Testing performed by : [facility], [address] [place] [phone] Alk phos 501(H) 40 - 130 Units/L [facility] Comment:Testing performed by : [facility], [address] [place] [phone] ALT 48 7 - 55 Units/L [facility] Comment:Testing performed by : [facility], [address] [place] [phone] AST 35 10 - 50 Units/L [facility] Comment:Testing performed by : [facility], [address] [place] [phone] Blood specimen (specimen) 10/02/2020 7:26 AM UNIT COORDINATOR 10/02/2020 7:28 AM UNIT COORDINATOR us Anita Gillespie MD LAB BLOOD ORDERABLES Final Result [facility] Department [place] [address] * (ABNORMAL) CBC with auto differential (10/02/2020 7:26 AM UNIT COORDINATOR) WBC 20.8(H) 3.8 - 9.8 K/cumm [facility] Comment:Testing performed by : [facility], [address] [place] [phone] Hgb 14.4 13.8 - 17.2 g/dL [facility] Comment:Testing performed by : [facility], [address] [place], [place] [phone] Hct 42.6 40.7 - 50.3 % [facility] Comment:Testing performed by : [facility], [address] [place] [address] Plt 382 140 - 440 K/cumm [facility] Comment:Testing performed by : [facility], [address] [place], [place] [phone] MPV 7.6 6.8 - 10.4 fL [facility] Comment:Testing performed by : [place] [address] RBC 4.53 4.50 - 5.70 M/cumm [facility] Comment:Testing performed by : [place] [address] MCV 94.1 80.0 - 97.6 fL [facility] Comment:Testing performed by : [facility], [address] [place], [place] [phone] MCH 31.7 26.7 - 33.7 pg [facility] Comment:Testing performed by : [place] [phone] MCHC 33.7 32.7 - 35.5 g/dL [facility] Comment:Testing performed by : [place] [phone] RDW CV 14.7(H) 11.8 - 14.6 % [facility] Comment:Testing performed by : [facility], [address] [place], [place] [phone] NRBC abs 0.01 0.00 - 0.01 K/cumm [facility] Comment:Testing performed by : [place] [phone] Blood specimen (specimen) 10/02/2020 7:26 AM UNIT COORDINATOR 10/02/2020 7:28 AM UNIT COORDINATOR us Anita Gillespie MD LAB BLOOD ORDERABLES Final Result [facility] Department [place] [address] * T4, free (10/02/2020 7:26 AM UNIT COORDINATOR) [facility] Free T4 1.25 0.90 - 1.70 ng/dL [facility] Blood specimen (specimen) 10/02/2020 7:26 AM UNIT COORDINATOR 10/02/2020 8:06 AM UNIT COORDINATOR Narrative [facility] - 10/02/2020 8:48 AM UNIT COORDINATOR Please draw along with Dr. Gillespie's labs us Theodore Gresham MD LAB BLOOD ORDERABLES Final Result Performing Organization Address [facility] Co de Phone Number [facility] [place] [address] * Erythrocyte sedimentation rate (10/02/2020 7:26 AM UNIT COORDINATOR) [facility] Erythrocyte sedimentation rate 5 1 - 15 mm/hr [facility] Blood specimen (specimen) 10/02/2020 7:26 AM UNIT COORDINATOR 10/02/2020 7:36 AM UNIT COORDINATOR us Ainta Gillespie MD LAB BLOOD ORDERABLES Final Result Performing Organization Address [facility] de Phone Number [facility] [place] [address] * Tacrolimus level trough (10/02/2020 7:26 AM UNIT COORDINATOR) [facility] Tacrolimus trough 8.0 ng/mL [facility] Comment: Interpretive Data Testing performed by liquid chromatography-tandem mass spectrometry. ??Therapeutic concentrations vary depending on type of transplanted organ and time elapsed since transplant. ??Typical trough concentrations range from 5-15 ng/mL. ??This test was developed and its performance characteristics determined by the [facility] consistent with CLIA requirements. ??This test has not been cleared or approved by the [place] Food and Drug administration. ??Current interpretive data last reviewed 2020. Blood specimen (specimen) 10/02/2020 7:26 AM UNIT COORDINATOR 10/02/2020 7:36 AM UNIT COORDINATOR Narrative [facility] - 10/02/2020 11:24 AM UNIT COORDINATOR Please draw along with Dr. Gillespie's labs us Theodore Gresham MD LAB BLOOD ORDERABLES Final Result Performing Organization Address [facility] Co de Phone Number [facility] Department [place] [address] * Enterovirus PCR Blood (10/02/2020 7:08 AM UNIT COORDINATOR) Enterovirus RNA Negative [facility] Blood specimen (specimen) 10/02/2020 7:08 AM UNIT COORDINATOR 10/04/2020 4:20 AM UNIT COORDINATOR us Hans Mendes MD PhD LAB MICROBIOLOGY - GENERAL ORDERABLES Final Result Performing Organization Address [facility] de Phone Number [facility] Department [place] [address] * (ABNORMAL) Cytomegalovirus (CMV) DNA PCR, quantitative Blood (10/02/2020 7:08 AM UNIT COORDINATOR) CMV DNA Detected( A) [facility] Comment: Interpretive Data: The quantifiable range of this assay is 137 IUnits/mL to 9,100,000 IUnits/mL (2.14 log IUnits/mL to 6.96 log IUnits/mL). Testing was performed by the [employer] AmpliPrep/NIA TaqMan CMV Test ([employer] Testing performed at [facility] Current interpretive data was last revised on 17. CMV DNA IU/mL 2,916 IUnits/mL [facility] CMV DNA log IU/mL 3.46 log IUnits/mL [facility] Blood specimen (specimen) 10/02/2020 7:08 AM UNIT COORDINATOR 10/02/2020 2:01 PM UNIT COORDINATOR Narrative [facility] - 10/02/2020 10:31 PM UNIT COORDINATOR Please draw along with Dr. Gillespie's labs us Theodore Gresham MD LAB MICROBIOLOGY - GENERAL ORDERABLES Final Result [facility] Department [place] [address] documented in this encounter Visit Diagnoses Diagnosis 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) History of liver transplant (CMS/HCC) (HCC) Liver replaced by transplant Elevated liver enzymes Other nonspecific abnormal serum enzyme levels Cytomegalovirus infection, unspecified cytomegaloviral infection type (HCC) Weakness Other malaise and fatigue Chronic arthralgias of knees and hips documented in this encounter Orders Appointment Requests Count Last Ordered Date Fi rst Ordered Date ONCBCN LAB APPOINTMENT 1 10/02/2020 documented in this encounter Care Teams Residential Supervisor Relationship Specialty Start Date End Date Guero Colunga DO PCP - General Internal Medicine 03/22/19 04/18/23 Amber Montesinos, RN Csw Transplant 11/17/19 Jil Duncan MD Consulting Physician Infectious Diseases 01/10/20 documented as of this encounter
--- OUTSIDE RECORDS SUMMARY | 2024-10-28 06:18 | XMS_ITS | Encounter Summary ---
Author Organization [facility] Address [address] [place] [address] Phone Care Team Providers Care Dish Person Name Role Phone Guero Colunga DO Primary Care Provider [phone] Amber Montesinos RN Unavailable [phone] Jil Duncan MD Unavailable [phone] Reason for Visit * Neurology (Routine) - Closed Specialty Diagnoses / Procedures Referred By Sascha rey Referred To Contact Neurology Diagnoses Weakness Procedures EMG/NCV -Please select the performing region: [facility] (All Locations); Procedure performed at: [facility] EMG Lab; Clinical Summary: weakness L leg and BL shoulders; Reason for referral or diagnostic question: polyarthralgia vs entrapmen... Hans Mendes MD PhD [address] [place] [address] Phone: tel: fax: [facility] Neurological Testing [address] [facility] 6th [place] [address] [place] [address] Phone: tel: fax: Referral ID Status Reason Start Date Expiration Date Visits Re quested Visits Authorized [id number] Closed 09/19/2020 10/19/2021 1 1 Encounter Details Date Type Department Care Team (Late st Contact Info) Description 10/03/2020 8:20 AM DATA COLLECTOR Procedure visit [facility] Neurological Testing [address] [facility] 6th [place] [address] [place] [address] Weakness Social History Tobacco Use Types Packs/Day Years Used Date Smoking Tobacco: Never Smokeless Tobacco: Current Chew Alcohol Use Standard Drinks/Week Comments Yes 0 (1 standard drink = 0.6 oz pur e alcohol) occassional Sex and Gender Information Value Date Recorded Sex Assigned at Not on file Legal Sex Male 6:28 AM DATA COLLECTOR Gender Identity Not on file Sexual Orientation Straight 08/22/2021 9: 23 AM CDT documented as of this encounter Procedure Notes * Hans Mendes MD PhD - 10/03/2020 8:20 AM CST Images from the original note were not included. 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 Query myopathy. SUMMARY OF FINDINGS: 1) Left median and tibial motor NCSs were normal. 2) left median and sural antidromic sensory NCSs were normal. 3) Needle EMG of the left deltoid, biceps brachii, vastus medialis and iliopsoas was normal except for a few MUPs of reduced duration and amplitude in the iliopsoas. Temperature was maintained above 32??C in the hand and above 30??C in the feet for all NCSs. CONCLUSION/INTERPRETATION: This was a nearly normal study. The isolated finding of an occasional myopathic MUP in the left iliopsoas is a finding with unclear clinical correlate. Correlation with pathology and/or laboratory data is advised. Hans Mendes MD PhD Electromyographer M.D. By signing this report, the attending Electromyographer certifies that he/she personally reviewed the electrodiagnostic study and edited the report to fully conform with his/her intent. Abbreviations : CMAP = compound muscle action potential SNAP = sensory nerve action potential CNAP = combined nerve action potential MUP = motor unit potential Fib = fibrillation PSW = positive sharp wave NCS = nerve conduction study RNS = repetitive nerve stimulation Inquiries regarding study/report - call . Appointments - call . Fax no.: . Our correspondence address : [address], [address] Nerve / Sites Latency Amplitude Segments Distance Lat Diff Velocity ms mV mm ms m/s L Median - APB Wrist 4.27 6.9 Wrist - APB 70 Elbow 7.92 6.6 Elbow - Wrist 210 3.65 57.6 L Tibial - AH Ankle 3.96 12.2 Ankle - AH 100 Pop fossa 11.51 10.1 Pop fossa - Ankle 380 7.55 50.3 SNC Nerve / Sites Onset Lat Peak Lat Amplitude OnsetDiff Distance Cond Agustín ms ms ??V ms mm m/s L Median, Ulnar - Digits 2, 4, 4, 5 Median Digit 2 3.2 4.1 23 3.2 140 43 L Sural - Ankle (Calf) Calf 3.1 4.0 16 3.1 140 46 Summary Insertional Spontaneous MUAP Comments Muscle Nerve Roots Activity Fib PSW Fasc Other Dur. Amp Poly Recruit Activate Comments L. Deltoid Axillary C5-C6 Normal None None None . Normal Normal None Normal Normal . L. Biceps brachii Musculocutaneous C5-C6 Normal None None None . Normal Normal None Normal Normal . L. Vastus medialis Femoral L2-L4 Normal None None None . Normal Normal None Normal Normal . L. Iliopsoas Femoral L2-L3 Normal None None None . few decr few decr None Normal Normal . COLLECTOR documented in this encounter Plan of Treatment Scheduled Procedures Name Priority Associated Diagnoses Date/Ti me COLONOSCOPY Encounter for screening for colorectal cancer in high risk patient Family history of rectal cancer documented as of this encounter Visit Diagnoses Diagnosis Weakness Other malaise and fatigue documented in this encounter Orders Imaging Orders Without Results Count Last Order ed Date First Ordered Date EMG/NCV 1 10/03/2020 documented in this encounter Care Teams Dish Person Relationship Specialty Start Date End Date Guero Colunga DO PCP - General Internal Medicine 03/22/19 04/18/23 Amber Montesinos RN Grounds Maintenance Supervisor Transplant 11/17/19 Jil Duncan MD Consulting Physician Infectious Diseases 01/10/20 documented as of this encounter
--- OUTSIDE RECORDS SUMMARY | 2024-10-28 06:18 | XMS_ITS | Encounter Summary ---
Author Organization [facility] Address [address] [place] [address] Phone Care Team Providers Care Global Expansion Sales Director Name Role Phone Guero Colunga DO Primary Care Provider [phone] Amber Montesinos RN Unavailable [phone] Jil Duncan MD Unavailable [phone] Anita Gillespie MD Unavailable [phone] Reason for Referral * Medication Authorization - Closed Specialty Diagnoses / Procedures Referred By Contac t Referred To Contact Diagnoses Hypogammaglobulinemia (HCC) Anita Gillespie MD [address] [address] Phone: tel: fax: Referral ID Status Reason Start Date Expiration Date Visits Re quested Visits Authorized [id number] Closed 10/08/2020 11/07/2021 1 1 ENFORCEMENT DIRECTOR Reason for Visit * Episode Based Medications (Routine) - Closed Specialty Diagnoses / Procedures Referred By Contac t Referred To Contact Diagnoses Hypogammaglobulinemia (HCC) Procedures RI GAMUNEX-C/GAMMAKED Anita Gillespie MD [address] [facility] [address] [place] [address] Phone: tel: fax: [facility] [address] [facility] 7th [place] [address] Phone: tel: Referral ID Status Reason Start Date Expiration Date Visits Re quested Visits Authorized [id number] Closed 09/20/2020 03/20/2021 1 12 Encounter Details Date Type Department Care Team (Latest Contact Info) Description 10/08/2020 10:00 AM LAW ENFORCEMENT DIRECTOR Infusion [facility] [address] [facility] 7th [place] [address] Hypogammaglobulinemia (CMS/HCC) (Primary Dx) Social History Tobacco Use Types Packs/Day Years Used Date Smoking Tobacco: Never Smokeless Tobacco: Current Chew Alcohol Use Standard Drinks/Week Comments Yes 0 (1 standard drink = 0.6 oz pur e alcohol) occassional Sex and Gender Information Value Date Recorded Sex Assigned at Not on file Legal Sex Male 6:28 AM LAW ENFORCEMENT DIRECTOR Gender Identity Not on file Sexual Orientation Straight 08/22/2021 9: 23 AM CDT documented as of this encounter Last Filed Vital Signs Vital Sign Reading Time Taken Comments Blood Pressure - - Pulse 88 10/08/2020 9:51 AM LAW ENFORCEMENT DIRECTOR Temperature 36.7 ??C (98.1 ??F) 10/08/2020 9:51 AM CS T Respiratory Rate 20 10/08/2020 9:51 AM LAW ENFORCEMENT DIRECTOR Oxygen Saturation - - Inhaled Oxygen Concentration - - Weight - - Height - - Body Mass Index - - documented in this encounter Nursing Notes * January Oseguera RN - 10/08/2020 10:00 AM CST Pt tolerated infusion well. Return appointments provided. Discharged ambulatory. ENFORCEMENT DIRECTOR documented in this encounter Plan of Treatment Scheduled Procedures Name Priority Associated Diagnoses Date/Ti sd COLONOSCOPY Encounter for screening for colorectal cancer in high risk patient Family history of rectal cancer documented as of this encounter Visit Diagnoses Diagnosis Hypogammaglobulinemia (HCC)- Primary Unspecified hypogammaglobulinemia documented in this encounter Administered Medications Inactive Administered Medications - up to 3 most recent administrations Medication Order MAR Action Action Date Dose Rate Site immune globulin (GAMUNEX-C,GAMMAKED) 10 % infusion 30 g 30 g, intravenous, Once, On Wed10/08/20 at 1130, For 1 dose, In accordance with Pharmacy IVIG Titrations Policy Initiate Gamunex at 0.6 mL/kg/hr. If no reaction, may increase rate by 0.6 mL/kg/hr every 30 minutes, to a max of 4.8 mL/kg/hr GamuNEX C INITIAL Infusion, 30 Minute Titration Patient Weight: 56.2 kg Initiate Infusion at 0.6 mL/kg/hr. If no reaction, may increase rate by 0.6 mL/kg/hr every 30 minutes, to a max of 4.8 mL/kg/hr 1 . 0.6 mL/kg/hr = Infuse 17 mL over 30 minutes (Rate = 34 mL/hr) 2 . 1.2 mL/kg/hr = Infuse 34 mL over 30 minutes (Rate = 67 mL/hr) 3 . 1.8 mL/kg/hr = Infuse 51 mL over 30 minutes (Rate = 101 mL/hr) 4 . 2.4 mL/kg/hr = Infuse 67 mL over 30 minutes (Rate = 135 mL/hr) 5 . 3.0 mL/kg/hr = Infuse 84 mL over 30 minutes (Rate = 169 mL/hr) 6 . 3.6 mL/kg/hr = Infuse 101 mL over 30 minutes (Rate = 202 mL/hr) 7 . 4.2 mL/kg/hr = Infuse 118 mL over 30 minutes (Rate = 236 mL/hr) 8 . 4.8 mL/kg/hr for remainder (Rate = 270 mL/hr)Indications:Hypogamm aglobulinemia (HCC) Rate/Dose Change 10/08/2020 1:35 PM LAW ENFORCEMENT DIRECTOR 202 mL/ hr Rate/Dose Change 10/08/2020 1:05 PM LAW ENFORCEMENT DIRECTOR 168 mL/ hr Rate/Dose Change 10/08/2020 12:33 PM LAW ENFORCEMENT DIRECTOR 135 mL /hr documented in this encounter Orders Medications Ordered That John ht Not Have Been Administered Count Last Ordered Date First Ordered Date immune globulin (GAMUNEX-C,G AMMAKED) 10 % infusion 25 g 1 10/08/2020 Nursing Count Last Ordered Date First Orde red Date ONCBCN NO PREMEDS NEEDED 1 10/08/2020 ONCBCN NURSING COMMUNICATION [id number] 2 1 12/09/2019 VITAL SIGNS INTRA-INFUSION 1 10/08/2020 Appointment Requests Count Last Ordered Date Fi rst Ordered Date INFUSION APPT REQUEST 300 MIN 1 10/08/2020 documented in this encounter Care Teams Global Expansion Sales Director Relationship Specialty Start Date End Date Guero Colunga DO PCP - General Internal Medicine 03/22/19 04/18/23 Amber Montesinos, SHAILESH Baseball Inspector And Repairer Transplant 11/17/19 Jil Duncan MD Consulting Physician Infectious Diseases 01/10/20 Anita Gillespie MD Medical Oncologist/Pumper Gager Medical Oncology 10/07/20 documented as of this encounter
--- OUTSIDE RECORDS SUMMARY | 2024-10-28 06:18 | XMS_ITS | Encounter Summary ---
Author Organization [facility] Address [address] [place] [address] Phone Care Team Providers Care Marble And Granite Polisher Name Role Phone Guero Colunga DO Primary Care Provider [phone] Amber Montesinos RN Unavailable [phone] Jil Duncan MD Unavailable [phone] Anita Gillespie MD Unavailable [phone] Encounter Details Date Type Department Care Team (Late st Contact Info) Description 12/25/2020 Telephone [facility] Infectious Diseases [address] [place] [address] Tosha Knott Social History Tobacco Use Types Packs/Day Years Used Date Smoking Tobacco: Never Smokeless Tobacco: Current Chew Alcohol Use Standard Drinks/Week Comments Yes 0 (1 standard drink = 0.6 oz pur e alcohol) occassional Sex and Gender Information Value Date Recorded Sex Assigned at Not on file Legal Sex Male 6:28 AM ASSISTANT DIRECTOR OF RESIDENCE LIFE Gender Identity Not on file Sexual Orientation Straight 08/22/2021 9: 23 AM CDT documented as of this encounter Miscellaneous Notes * Telephone Encounter - Ny Griffin - 12/25/2020 11:18 AM CST Called and LVM for patient to call clinic STANT DIRECTOR OF RESIDENCE LIFE * Telephone Encounter - Lisandra Auguste NP - 12/25/2020 11:02 AM ASSISTANT DIRECTOR OF RESIDENCE LIFE He should have started this already. He was on the schedule to see Ige and I but cancelled as his mother had covid. Please see if he has taken the medication at all. If not, he should start and get back on the schedule for Wednesday. STANT DIRECTOR OF RESIDENCE LIFE * Telephone Encounter - Ny Griffin - 12/25/2020 10:59 AM CST Wasn't this already started? I don't see it on his med list any longer? STANT DIRECTOR OF RESIDENCE LIFE * Telephone Encounter - Tosha Knott - 12/25/2020 9:58 AM CST [phone], Patient would like to discuss the meds of the patient will be going on. He will goingon [employer]. STANT DIRECTOR OF RESIDENCE LIFE documented in this encounter Plan of Treatment Scheduled Procedures Name Priority Associated Diagnoses Date/Ti me COLONOSCOPY Encounter for screening for colorectal cancer in high risk patient Family history of rectal cancer documented as of this encounter Visit Diagnoses Not on filedocumented in this encounter Care Teams Marble And Granite Polisher Relationship Specialty Start Date End Date Guero Colunga DO PCP - General Internal Medicine 03/22/19 04/18/23 Amber Montesinos RN Assistant Attorney General Transplant 11/17/19 Jil Duncan MD Consulting Physician Infectious Diseases 01/10/20 Anita Gillespie MD Medical Oncologist/Transfer Table Operator Medical Oncology 10/07/20 documented as of this encounter
--- OUTSIDE RECORDS SUMMARY | 2024-10-28 06:18 | XMS_ITS | Encounter Summary ---
Author Organization [facility] Address [address] [place] [address] Phone Care Team Providers Care Full Stack Php Developer Name Role Phone Guero Colunga DO Primary Care Provider [phone] Amber Montesinos RN Unavailable [phone] Jil Duncan MD Unavailable [phone] Anita Gillespie MD Unavailable [phone] Encounter Details Date Type Department Care Team (Latest Contact Info) Description 11/06/2020 8:00 AM COST ACCOUNTING ANALYST Lab [facility] [address] [facility] 7th [place] [address] [place] [address] Hypogammaglobulinemia (CMS/HCC); 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); High grade B-cell lymphoma (CMS/HCC); History of liver transplant (CMS/HCC) Social History Tobacco Use Types Packs/Day Years Used Date Smoking Tobacco: Never Smokeless Tobacco: Current Chew Alcohol Use Standard Drinks/Week Comments Yes 0 (1 standard drink = 0.6 oz pur e alcohol) occassional Sex and Gender Information Value Date Recorded Sex Assigned at Not on file Legal Sex Male 6:28 AM COST ACCOUNTING ANALYST Gender Identity Not on file Sexual Orientation Straight 08/22/2021 9: 23 AM CDT documented as of this encounter Plan of Treatment Scheduled Procedures Name Priority Associated Diagnoses Date/Ti me COLONOSCOPY Encounter for screening for colorectal cancer in high risk patient Family history of rectal cancer documented as of this encounter Procedures Procedure Name Priority Date/Time Associated Diagnosis Comments DIFFERENTIAL AUTO Routine 11/06/2020 7:5 4 AM COST ACCOUNTING ANALYST 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) CBC WITH AUTO DIFFERENTIAL Routine 11/06/2020 7:54 AM COST ACCOUNTING ANALYST 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) LACTATE DEHYDROGENASE Routine 11/06/2020 7:54 AM COST ACCOUNTING ANALYST 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) GAMMA GT Routine 11/06/2020 7:54 AM COST ACCOUNTING ANALYST History of liver transplant (CMS/HCC) IGG Routine 11/06/2020 7:54 AM COST ACCOUNTING ANALYST 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) Hypogammaglobulinemia (CMS/HCC) COMPREHENSIVE METABOLIC PANEL Routine 11/06/2020 7:54 AM COST ACCOUNTING ANALYST 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) CYTOMEGALOVIRUS (CMV) DNA, QUANT GEN LAB Routine 11/06/2020 7:54 AM COST ACCOUNTING ANALYST History of liver transplant (CMS/HCC) TACROLIMUS LEVEL, TROUGH Routine 11/06/2020 7:54 AM COST ACCOUNTING ANALYST History of liver transplant (CMS/HCC) documented in this encounter Results * (ABNORMAL) Differential, auto (11/06/2020 7:54 AM COST ACCOUNTING ANALYST) Neutrophil abs 5.3 1.8 - 6.6 K/cumm C[facility]ER [facility] Comment:Testing performed by : [facility], [address] [place] [phone] Lymphocyte abs 6.0(H) 1.2 - 3.3 K/cumm [facility] Comment:Testing performed by : [facility], [facility] [address] Monocyte abs 2.3(H) 0.2 - 1.2 K/cumm [facility] Comment:Testing performed by : [facility], [address] [place] [address] Eosinophil abs 1.0(H) 0.0 - 0.5 K/cumm [facility]ERFRANCISCO [facility]ER Comment:Testing performed by : [facility], [address] [place] [address] Basophil abs 0.1 0.0 - 0.2 K/cumm [facility]ERFRANCISCO [facility] Comment:Testing performed by : [facility], [address] [place] [address] Neutrophil pct 36.1 % [facility] Comment: Interpretive Data Percent cell count reference ranges are not reported, since discordance with absolute values may lead to misinterpretation of CBC data. Current Interpretive Data was last revised on 2018. Testing performed by: [facility], [address] [place] [address] Lymphocyte pct 40.7 % [facility]ER[facility]ANCISCO [facility] Comment: Interpretive Data Percent cell count reference ranges are not reported, since discordance with absolute values may lead to misinterpretation of CBC data. Current Interpretive Data was last revised on 2018. Testing performed by: [facility], [address] [place] [address] Monocyte pct 15.7 % [facility] Comment:Testing performed by : [facility], [address] [place] [address] Eosinophil pct 6.9 % [facility] Comment:Testing performed by : [address] [address] Basophil pct 0.6 % [facility] Comment:Testing performed by : [facility], [address] [place] [address] Blood specimen (specimen) 11/06/2020 7:54 AM COST ACCOUNTING ANALYST 11/06/2020 7:56 AM COST ACCOUNTING ANALYST us Anita Gillespie MD LAB BLOOD ORDERABLES Final Result [facility]OOKE BUTCHER [facility] [place] [address] * (ABNORMAL) Gamma GT (11/06/2020 7:54 AM COST ACCOUNTING ANALYST) GGT 287(H) 10 - 50 Units/L [facility] Comment:Testing performed by : [facility], [address] [place] [address] Blood specimen (specimen) 11/06/2020 7:54 AM COST ACCOUNTING ANALYST 11/06/2020 7:56 AM COST ACCOUNTING ANALYST Narrative BROOKE GUERRERO - 11/06/2020 8:16 AM COST ACCOUNTING ANALYST *Please draw with Dr. Gillespie's labs* us Theodore Gresham MD LAB BLOOD ORDERABLES Final Result [facility] Department [place] [address] * (ABNORMAL) Comprehensive metabolic panel (11/06/2020 7:54 AM COST ACCOUNTING ANALYST) Pathologist [facility] Sodium 140 135 - 145 mmol/L [facility] BUTCHER Comment:Testing performed by : [facility], [address] [place] [address] Potassium, pl 4.0 3.3 - 4.9 mmol/L [facility]CHER Comment:Testing performed by : [facility], [address] [place] [address] Chloride 104 97 - 110 mmol/L [facility] Comment:Testing performed by : [facility], [address] [place] [address] CO2 29 22 - 32 mmol/L [facility] Comment:Testing performed by : [facility], [address] [place] [address] Anion gap 7 2 - 15 mmol/L [facility] Comment:Testing performed by : [facility], [address] [place] [address] BUN 11 8 - 25 mg/dL [facility] Comment:Testing performed by : [facility], [address] [place] [address] Creatinine 0.85 0.80 - 1.30 mg/dL [facility]ER Comment:Testing performed by : [facility], [address] [place] [address] Glucose 106 70 - 199 mg/dL CERNER [facility] Comment: Interpretive Data Fasting [...] was last revised 2017. Testing performed by: [facility], [address] [place], [place] [phone] Calcium 7.7(L) 8.5 - 10.3 mg/dL CERNER [facility] Comment:Testing performed by : [facility], [address] [place], [place] [phone] Bilirubin, total 0.5 0.1 - 1.2 mg/dL [facility] Comment:Testing performed by : [facility], [address] [place], [place] [phone] Protein, pl 6.4(L) 6.5 - 8.5 g/dL [facility] Comment:Testing performed by : [place] [id number] Albumin 4.2 3.5 - 5.0 g/dL [facility] Comment:Testing performed by : [place] [id number] Alk phos 431(H) 40 - 130 Units/L [facility] Comment:Testing performed by : [facility], [address] [place], [place] [phone] ALT 64(H) 7 - 55 Units/L [facility] Comment:Testing performed by : [place] [id number] AST 69(H) 10 - 50 Units/L [facility] Comment:Testing performed by : [address] [address] Blood specimen (specimen) 11/06/2020 7:54 AM COST ACCOUNTING ANALYST 11/06/2020 7:56 AM COST ACCOUNTING ANALYST us Anita Gillespie MD LAB BLOOD ORDERABLES Final Result BROOKE BUTCHER [facility] Department [place] [address] * (ABNORMAL) CBC with auto differential (11/06/2020 7:54 AM COST ACCOUNTING ANALYST) WBC 14.7(H) 3.8 - 9.8 K/cumm BROO[facility] BUTCHER Comment:Testing performed by : [address] [address] Hgb 14.3 13.8 - 17.2 g/dL [facility]CHER Comment:Testing performed by : [address] [address] Hct 42.6 40.7 - 50.3 % [facility] BUTCHER Comment:Testing performed by : [facility], [address] [place] [address] Plt 238 140 - 440 K/cumm [facility]ER Comment:Testing performed by : [address] [address] MPV 8.1 6.8 - 10.4 fL [facility]ER Comment:Testing performed by : [place] [id number] RBC 4.48(L) 4.50 - 5.70 M/cumm [facility]CHER Comment:Testing performed by : [facility], [address] [place] [address] MCV 95.0 80.0 - 97.6 fL [facility]ER Comment:Testing performed by : [address] [address] MCH 31.9 26.7 - 33.7 pg [facility]ER Comment:Testing performed by : [address] [address] MCHC 33.6 32.7 - 35.5 g/dL [facility]ER Comment:Testing performed by : [address] [address] RDW CV 16.2(H) 11.8 - 14.6 % [facility] Comment:Testing performed by : [facility], [address] [place] [address] NRBC abs 0.01 0.00 - 0.01 K/cumm [facility] Comment:Testing performed by : [facility], [address] [place] [address] Blood specimen (specimen) 11/06/2020 7:54 AM COST ACCOUNTING ANALYST 11/06/2020 7:56 AM COST ACCOUNTING ANALYST Anita Gillespie MD LAB BLOOD ORDERABLES Final Result Performing Organization Address City/[facility]/ZIP Co de Phone Number [facility] of Laboratories [place], [place] [id number] * Lactate dehydrogenase (LD) (11/06/2020 7:54 AM COST ACCOUNTING ANALYST) Pathologist [facility] Lactate dehydrogenase (LDH) 250 100 - 250 Units/L [facility] Comment:Testing performed by : [facility], [address] [place] [phone] Blood specimen (specimen) 11/06/2020 7:54 AM COST ACCOUNTING ANALYST 11/06/2020 7:56 AM COST ACCOUNTING ANALYST Result [facility] Anita Gillespie MD LAB BLOOD ORDERABLES Final Result Performing Organization Address City/[facility]/ZIP Co de Phone Number [facility] [place] [address] * (ABNORMAL) IgG (11/06/2020 7:54 AM COST ACCOUNTING ANALYST) Immunoglobulin G 449.0(L) 700.0 - 1,600.0 mg/dL [facility] Blood specimen (specimen) 11/06/2020 7:54 AM COST ACCOUNTING ANALYST 11/06/2020 8:06 AM COST ACCOUNTING ANALYST Anita Gillespie MD LAB BLOOD ORDERABLES Final Result Performing Organization Address [facility] Co de Phone Number [facility] [place] [address] * Tacrolimus level trough (11/06/2020 7:54 AM COST ACCOUNTING ANALYST) [facility] Tacrolimus trough 4.2 ng/mL [facility] Comment: Interpretive Data Testing performed by liquid chromatography-tandem mass spectrometry. ??Therapeutic concentrations vary depending on type of transplanted organ and time elapsed since transplant. ??Typical trough concentrations range from 5-15 ng/mL. ??This test was developed and its performance characteristics determined by the [facility] consistent with CLIA requirements. ??This test has not been cleared or approved by the [place] Food and Drug administration. ??Current interpretive data last reviewed 2020. Blood specimen (specimen) 11/06/2020 7:54 AM COST ACCOUNTING ANALYST 11/06/2020 8:06 AM COST ACCOUNTING ANALYST Narrative [facility] - 11/06/2020 11:46 AM COST ACCOUNTING ANALYST *Please draw with Dr. Glilespie's labs* Theodore Gresham MD LAB BLOOD ORDERABLES Final Result Performing Organization Address [facility] Co de Phone Number [facility] One [facility] Department [place] [address] * (ABNORMAL) Cytomegalovirus (CMV) DNA PCR, quantitative Blood (11/06/2020 7:54 AM COST ACCOUNTING ANALYST) [facility] CMV DNA Detected( A) [facility] Comment: Interpretive Data: The quantifiable range of this assay is 137 IUnits/mL to 9,100,000 IUnits/mL (2.14 log IUnits/mL to 6.96 log IUnits/mL). Testing was performed by the [employer] AmpliPrep/NIA TaqMan CMV Test ([employer] Testing performed at [facility] Current interpretive data was last revised on 17. CMV DNA IU/mL 2,127 IUnits/mL [facility] CMV DNA log IU/mL 3.33 log IUnits/mL [facility] Blood specimen (specimen) 11/06/2020 7:54 AM COST ACCOUNTING ANALYST 11/06/2020 2:59 PM COST ACCOUNTING ANALYST Narrative BROO[facility] BUTCHER - 11/06/2020 9:27 PM COST ACCOUNTING ANALYST *Please draw along with Dr. Gillespie's labs this day* us Theodore Gresham MD LAB MICROBIOLOGY - GENERAL ORDERABLES Final Result [facility] One [facility] [place] [address] documented in this encounter Visit Diagnoses Diagnosis Hypogammaglobulinemia (HCC) Unspecified hypogammaglobulinemia 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) High grade B-cell lymphoma (HCC) History of liver transplant (CMS/HCC) (HCC) Liver replaced by transplant documented in this encounter Orders Appointment Requests Count Last Ordered Date Fi rst Ordered Date ONCBCN LAB APPOINTMENT 1 11/06/2020 documented in this encounter Care Teams Full Stack Php Developer Relationship Specialty Start Date End Date Guero Colunga DO PCP - General Internal Medicine 03/22/19 04/18/23 Amber Montesinos, SHAILESH Cash Posting Specialist Transplant 11/17/19 Jil Duncan MD Consulting Physician Infectious Diseases 01/10/20 Anita Gillespie MD Medical Oncologist/Shot Peening Operator Medical Oncology 10/07/20 documented as of this encounter
--- OUTSIDE RECORDS SUMMARY | 2024-10-28 06:18 | XMS_ITS | Encounter Summary ---
Author Organization [facility] Address [address] [place] [address] Phone Care Team Providers Care Vascular Ultrasound Technician Name Role Phone Guero Colunga DO Primary Care Provider [phone] Amber Montesinos RN Unavailable [phone] Jil Duncan MD Unavailable [phone] Anita Gillespie MD Unavailable [phone] Encounter Details Date Type Department Care Team (Late st Contact Info) Description 11/13/2020 Telephone [facility] Infectious Diseases [address] [place] [address] Tosha Knott Social History Tobacco Use Types Packs/Day Years Used Date Smoking Tobacco: Never Smokeless Tobacco: Current Chew Alcohol Use Standard Drinks/Week Comments Yes 0 (1 standard drink = 0.6 oz pur e alcohol) occassional Sex and Gender Information Value Date Recorded Sex Assigned at Not on file Legal Sex Male 6:28 AM DIRECTOR OF PRODUCT MARKETING Gender Identity Not on file Sexual Orientation Straight 08/22/2021 9: 23 AM CDT documented as of this encounter Miscellaneous Notes * Telephone Encounter - Ny Griffin - 11/20/2020 10:05 AM CST PAPERWORK RECEIVED AND EMAILED TO SEVERINO ON 11/19/20 CTOR OF PRODUCT MARKETING * Telephone Encounter - Ny Griffin Arianna - 11/15/2020 8:43 AM CST Images from the original note were not included. From: Ny Griffin Sent: Sunday, November 15, 2020 8:44 AM To: Severino Valdez <[email or web address]> Cc: Lisandra Auguste <[email or web address]> Subject: RE: FLORENTIN I have given the medical statement to Lisandra to fill out. I will get it back to you on Wednesday. Thanks again for your help. From: Severino Valdez <[email or web address]> Sent: November 3:50 PM To: Ny Griffin <[email or web address]> Cc: Lisandra Auguste <[email or web address]> Subject: Re: FLORENTIN You???re welcome! Just left her a message. Get [employer] for [employer] From: Ny Griffin <[email or web address]> Sent: November 3:29:15 PM To: Severino Valdez <[email or web address]> Cc: Lisandra Auguste < > Subject: RE: FLORENTIN Thanks Severino. His mom does all of his stuff for him. Her name is Brooklynn Nichols and her # is [phone] From: Severino Valdez <[email or web address]> Sent: November 3:27 PM To: Ny Griffin <[email or web address]> Cc: Lisandra Auguste < > Subject: Re: FLORENTIN The jana for the [employer] for CMV is fully allocated right now. Outline will only bring down the dorman down to $454 for the 120 tablets at [facility]. For the patient assistance program for brand name Gerardo I???m told their income has to be less than $150,000. Can you send me his number and I can call and speak to him about it. This form has to be signed by the patient. [email or web address].needymeds.org/papforms/[email or web address].pdf This statement of medical necessity needs to be filled out by you guys. [email or web address].needymeds.org/papforms/[email or web address].pdf Get [employer] for iOS From: Severino Valdez <[email or web address]> Sent: November 3:01:32 PM To: Ny Griffin <[email or web address]> Cc: Lisandra Auguste < > Subject: Re: FLORENTIN Looking right now. Get [employer] for iOS From: Ny Griffin <[email or web address]> Sent: November 12:26:59 PM To: Severino Valdez <[email or web address]> Cc: Lisandra Auguste < > Subject: FLORENTIN Nichols 1995 Rui Haq, I have another one! Patient is being prescribed Valganciclovir 450mg, 2 tablets BID. Has insurance coverage, did PA but co pay is still over $2000 a month. Any help for this med available? CTOR OF PRODUCT MARKETING * Telephone Encounter - Ny Griffin - 11/14/2020 2:15 PM CST I have also sent email to Severino at [facility] to see if he could help any? CTOR OF PRODUCT MARKETING * Telephone Encounter - Ny Griffin - 11/13/2020 1:20 PM CST Lisandra, This cost is with insurance coverage. Patient's plan has a very large deductible. Ali, does the surgical garment assembly supervisor have any assistance programs? CTOR OF PRODUCT MARKETING * Telephone Encounter - Tosha Knott. - 11/13/2020 1:06 PM CST [phone], patient's mother states that the VALGANCICLOVIR wpuld be over $2000.00 for a month's supply. It is $700.00 for a week. They are not able to get this medicine, Is there anything else, that costs less. CTOR OF PRODUCT MARKETING documented in this encounter Plan of Treatment Scheduled Procedures Name Priority Associated Diagnoses Date/Ti me COLONOSCOPY Encounter for screening for colorectal cancer in high risk patient Family history of rectal cancer documented as of this encounter Visit Diagnoses Not on filedocumented in this encounter Care Teams Vascular Ultrasound Technician Relationship Specialty Start Date End Date Guero Colunga DO PCP - General Internal Medicine 03/22/19 04/18/23 Amber Montesinos, SHAILESH Textile Conservator Transplant 11/17/19 Jil Duncan MD Consulting Physician Infectious Diseases 01/10/20 Anita Gillespie MD Medical Oncologist/Slip Caster Medical Oncology 10/07/20 documented as of this encounter
--- OUTSIDE RECORDS SUMMARY | 2024-10-28 06:18 | XMS_ITS | Encounter Summary ---
Author Organization [facility] Healthcare Address [address] [place] [address] Care Team Providers Care Dairy Department Manager Name Role Phone Guero Colunga Primary Care Provider [phone] Amber Montesinos RN Unavailable [phone] Jil Duncan MD Unavailable [phone] Anita Gillespie MD Unavailable [phone] Encounter Details Date Type Department Care Team (Late st Contact Info) Description 10/21/2020 Orders Only [facility] Transplant Liver [address] [facility] [phone] [place], [place] [id number] Amber Montesinos RN History of liver transplant (CMS/HCC) (Primary Dx) Social History Tobacco Use Types Packs/Day Years Used Date Smoking Tobacco: Never Smokeless Tobacco: Current Chew Alcohol Use Standard Drinks/Week Comments Yes 0 (1 standard drink = 0.6 oz pur e alcohol) occassional Sex and Gender Information Value Date Recorded Sex Assigned at Not on file Legal Sex Male 6:28 AM PSYCHOLOGIST COUNSELING Gender Identity Not on file Sexual Orientation Straight 08/22/2021 9: 23 AM CDT documented as of this encounter Plan of Treatment Scheduled Procedures Name Priority Associated Diagnoses Date/Ti me COLONOSCOPY Encounter for screening for colorectal cancer in high risk patient Family history of rectal cancer documented as of this encounter Results * (ABNORMAL) Gamma GT (11/06/2020 7:54 AM PSYCHOLOGIST COUNSELING) GGT 287(H) 10 - 50 Units/L [facility] Comment:Testing performed by : [facility], [facility] [address] Blood specimen (specimen) 11/06/2020 7:54 AM PSYCHOLOGIST COUNSELING 11/06/2020 7:56 AM PSYCHOLOGIST COUNSELING Narrative [facility] - 11/06/2020 8:16 AM PSYCHOLOGIST COUNSELING *Please draw with Dr. Gillespie's labs* Theodore Gresham MD LAB BLOOD ORDERABLES Final Result Performing Organization Address City/[facility]/ZIP Co de Phone Number [facility] Department [place] [address] * Tacrolimus level trough (11/06/2020 7:54 AM PSYCHOLOGIST COUNSELING) Pathologist [facility] Tacrolimus trough 4.2 ng/mL [facility] Comment: Interpretive Data Testing performed by liquid chromatography-tandem mass spectrometry. ??Therapeutic concentrations vary depending on type of transplanted organ and time elapsed since transplant. ??Typical trough concentrations range from 5-15 ng/mL. ??This test was developed and its performance characteristics determined by the [facility] consistent with CLIA requirements. ??This test has not been cleared or approved by the [place] Food and Drug administration. ??Current interpretive data last reviewed 2020. Blood specimen (specimen) 11/06/2020 7:54 AM PSYCHOLOGIST COUNSELING 11/06/2020 8:06 AM PSYCHOLOGIST COUNSELING Narrative [facility] - 11/06/2020 11:46 AM PSYCHOLOGIST COUNSELING *Please draw with Dr. Gillespie's labs* Theodore Gresham MD LAB BLOOD ORDERABLES Final Result [facility] Department [place] [address] documented in this encounter Visit Diagnoses Diagnosis History of liver transplant (CMS/HCC) (HCC)- Primary Liver replaced by transplant Hypogammaglobulinemia (HCC) Unspecified hypogammaglobulinemia 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) High grade B-cell lymphoma (HCC) History of liver transplant (CMS/HCC) (HCC) Liver replaced by transplant documented in this encounter Care Teams Dairy Department Manager Relationship Specialty Start Date End Date Guero Colunga DO PCP - General Internal Medicine 03/22/19 04/18/23 Amber Montesinos, SHAILESH Bus Girl Transplant 11/17/19 Jil Duncan MD Consulting Physician Infectious Diseases 01/10/20 Anita Gillespie MD Medical Oncologist/Junior Mechanical Engineer Medical Oncology 10/07/20 documented as of this encounter
--- OUTSIDE RECORDS SUMMARY | 2024-10-28 06:18 | XMS_ITS | Encounter Summary ---
Author Organization [facility] Address [address] [place] [address] Phone Care Team Providers Care Director Of Development And Marketing Name Role Phone Guero Colunga DO Primary Care Provider [phone] Amber Montesinos RN Unavailable [phone] Jil Duncan MD Unavailable [phone] Anita Gillespie MD Unavailable [phone] Encounter Details Date Type Department Care Team (Latest Contact Info) Description 10/08/2020 Orders Only [facility] Oncology [address] [facility] [address] [place] [address] [place] [address] Samreen Greene RN Hypogammaglobulinemia (CMS/HCC) (Primary Dx); 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); High grade B-cell lymphoma (CMS/HCC) Social History Tobacco Use Types Packs/Day Years Used Date Smoking Tobacco: Never Smokeless Tobacco: Current Chew Alcohol Use Standard Drinks/Week Comments Yes 0 (1 standard drink = 0.6 oz pur e alcohol) occassional Sex and Gender Information Value Date Recorded Sex Assigned at Not on file Legal Sex Male 6:28 AM SENIOR ACCOUNT MANAGER Gender Identity Not on file Sexual Orientation Straight 08/22/2021 9: 23 AM CDT documented as of this encounter Plan of Treatment Scheduled Orders Name Type Priority Associated Diagnoses Orde r Schedule CBC with auto differential Lab Routine Hypogammaglobulinemia (CMS/HCC) 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) Expected: 11/06/2020 (Approximate), Expires: 10/08/2021 Comprehensive metabolic panel Lab Routine Hypogammaglobulinemia (CMS/HCC) 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) Expected: 11/06/2020 (Approximate), Expires: 10/08/2021 Lactate dehydrogenase (LD) Lab Routine Hypogammaglobulinemia (CMS/HCC) 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) Expected: 11/06/2020 (Approximate), Expires: 10/08/2021 Scheduled Procedures Name Priority Associated Diagnoses Date/Ti me COLONOSCOPY Encounter for screening for colorectal cancer in high risk patient Family history of rectal cancer documented as of this encounter Visit Diagnoses Diagnosis Hypogammaglobulinemia (HCC)- Primary Unspecified hypogammaglobulinemia 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) High grade B-cell lymphoma (HCC) documented in this encounter Orders Appointment Requests Count Last Ordered Date Fi rst Ordered Date INFUSION APPT REQUEST 300 MIN 1 11/06/2020 [facility] CLINIC APPOINTMENT REQUEST 1 021 [facility] LAB APPOINTMENT 1 11/06/2020 documented in this encounter Care Teams Director Of Development And Marketing Relationship Specialty Start Date End Date Guero Colunga DO PCP - General Internal Medicine 03/22/19 04/18/23 Amber Montesinos RN Engineering Administrator Transplant 11/17/19 Jil Duncan MD Consulting Physician Infectious Diseases 01/10/20 Anita Gillespie MD Medical Oncologist/Door Maker Medical Oncology 10/07/20 documented as of this encounter
--- OUTSIDE RECORDS SUMMARY | 2024-10-28 06:18 | XMS_ITS | Encounter Summary ---
Author Organization [facility] Address [address] [place] [address] Phone Care Team Providers Care Manager Imaging Name Role Phone Guero Colunga DO Primary Care Provider [phone] Amber Montesinos RN Unavailable [phone] Jil Duncan MD Unavailable [phone] Anita Gillespie MD Unavailable [phone] Encounter Details Date Type Department Care Team (Late st Contact Info) Description 11/22/2020 Telephone [facility] Infectious Diseases [address] [place] [address] Pavan Owen, [facility] Social History Tobacco Use Types Packs/Day Years Used Date Smoking Tobacco: Never Smokeless Tobacco: Current Chew Alcohol Use Standard Drinks/Week Comments Yes 0 (1 standard drink = 0.6 oz pur e alcohol) occassional Sex and Gender Information Value Date Recorded Sex Assigned at Not on file Legal Sex 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 They need to know if insurance is covering a portion of the cost and if so what is theannual out of pocket cost. If insurance is not going to cover a portion they need a denial reason and if this is able to be appealed. L ROOM ATTENDANT * Telephone Encounter - Pavan Owen RMA - 11/22/2020 4:06 PM HOTEL ROOM ATTENDANT January [facility] [phone], requesting a call back in regards to a medication application. L ROOM ATTENDANT documented in this encounter Plan of Treatment Scheduled Procedures Name Priority Associated Diagnoses Date/Ti me COLONOSCOPY Encounter for screening for colorectal cancer in high risk patient Family history of rectal cancer documented as of this encounter Visit Diagnoses Not on filedocumented in this encounter Care Teams Manager Imaging Relationship Specialty Start Date End Date Guero Colunga DO PCP - General Internal Medicine 03/22/19 04/18/23 Amber Montesinos RN Corporate Investigator Transplant 11/17/19 Jil Duncan MD Consulting Physician Infectious Diseases 01/10/20 Anita Gillespie MD Medical Oncologist/Die Repairer Forging Medical Oncology 10/07/20 documented as of this encounter
--- OUTSIDE RECORDS SUMMARY | 2024-10-28 06:18 | XMS_ITS | Encounter Summary ---
Author Organization [facility] Address [address] [place] [address] Phone Care Team Providers Care Educational Program Director Name Role Phone Guero Colunga DO Primary Care Provider [phone] Amber Montesinos RN Unavailable [phone] Jil Duncan MD Unavailable [phone] Anita Gillespie MD Unavailable [phone] Encounter Details Date Type Department Care Team (Late st Contact Info) Description 11/13/2020 Orders Only 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 Gender Identity Not on file Sexual Orientation Straight 08/22/2021 9: 23 AM CDT documented as of this encounter Ordered Prescriptions Prescription Sig Dispense Quantity Refills Last Filled Start Date End Date valGANciclovir (VALCYTE) 450 mg tabletIndications: cytomegalovirus disease Take 2 tablets (900 mg total) by mouth 2 (two) times a day 120 tablet 11/13/2020 2 documented in this encounter Plan of [...] times a day for 21 days Reorder 11/11/2020 11/13/2020 documented as of this encounter Care Teams Educational Program Director Relationship Specialty Start Date End Date Guero Colunga DO PCP - General Internal Medicine 03/22/19 04/18/23 Amber Montesinos RN Loading Inspector Transplant 11/17/19 Jil Duncan MD Consulting Physician Infectious Diseases 01/10/20 Anita Gillespie MD Medical Oncologist/Laborer [place] Medical Oncology 10/07/20 documented as of this encounter
--- OUTSIDE RECORDS SUMMARY | 2024-10-28 06:18 | XMS_ITS | Encounter Summary ---
Author Organization [facility] Healthcare Address [address] [place] [address] Care Team Providers Care Door To Door Salesperson Name Role Phone Guero Colunga Primary Care Provider [phone] Amber Montesinos RN Unavailable [phone] Jil Duncan MD Unavailable [phone] Anita Gillespie MD Unavailable [phone] Encounter Details Date Type Department Care Team (Late st Contact Info) Description 01/09/2021 Telephone [facility] Transplant Liver [address] [facility] [phone] [place] [address] Sharita Valdez Social History Tobacco Use Types Packs/Day Years Used Date Smoking Tobacco: Never Smokeless Tobacco: Current Chew Alcohol Use Standard Drinks/Week Comments Yes 0 (1 standard drink = 0.6 oz pur e alcohol) occassional Sex and Gender Information Value Date Recorded Sex Assigned at Not on file Legal Sex Male 6:28 AM SECURITY OFFICER SUPERVISOR Gender Identity Not on file Sexual Orientation Straight 08/22/2021 9: 23 AM CDT documented as of this encounter Miscellaneous Notes * Telephone Encounter - Sharita Valdez - 01/09/2021 9:21 AM CST Please call pt's mother at [phone] re: lab work he needs. RITY OFFICER SUPERVISOR documented in this encounter Plan of Treatment Scheduled Procedures Name Priority Associated Diagnoses Date/Ti me COLONOSCOPY Encounter for screening for colorectal cancer in high risk patient Family history of rectal cancer documented as of this encounter Visit Diagnoses Not on filedocumented in this encounter Care Teams Door To Door Salesperson Relationship Specialty Start Date End Date Guero Colunga DO PCP - General Internal Medicine 03/22/19 04/18/23 Amber Montesinos, SHAILESH Senior Climate Advisor Transplant 11/17/19 Jil Duncan MD Consulting Physician Infectious Diseases 01/10/20 Anita Gillespie MD Medical Oncologist/Weigher Operator Medical Oncology 10/07/20 documented as of this encounter
--- OUTSIDE RECORDS SUMMARY | 2024-10-28 06:18 | XMS_ITS | Encounter Summary ---
Author Organization 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) Procedures Pulmonary Function Test -[facility] Adult PFT Lab- CAM-8D; MIPS/MEPS, Maximum Voluntary Ventilation, Spirometry Jan Bailon MD [address] [place] [address] Phone: tel: fax: Referral ID Status Reason Start Date Expiration Date Visits Re quested Visits Authorized [id number] Closed 01/17/2021 02/16/2022 1 1 * Diagnostic Imaging (Routine) - Closed Specialty Diagnoses / Procedures Referred By Contac t Referred To Contact Radiology Diagnoses 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) Procedures CT Chest High Resolution WO Contrast Jan Bailon MD [address] [place] [address] Phone: tel: fax: [facility] [address] [facility] [place] [address] Referral ID Status Reason Start Date Expiration Date Visits Re quested Visits Authorized [id number] Closed 01/17/2021 02/16/2022 1 1 Reason for Visit * Consultation (Routine) - Closed Specialty Diagnoses / Procedures Referred By Contac t Referred To Contact Pulmonary Disease / Pulmonology Diagnoses History of liver transplant (CMS/HCC) (HCC) Theodore Gresham MD Phone: tel: fax: Александр Mcmillan MD Phone: tel: fax: Referral ID Status Reason Start Date Expiration Date V isits Requested Visits Authorized [id number] Closed Specialty Services Required 10/07/2020 11/06/2021 12 12 Encounter Details Date Type Department Care Team (Latest Contact Info) Description 01/17/2021 3:00 PM CDT Office Visit [facility] Pulmonary [address] 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 Gender Identity Not on file Sexual Orientation Straight 08/22/2021 9: 23 AM CDT documented as of this encounter Last Filed Vital Signs Vital Sign Reading Time Taken Comments Blood Pressure 104/68 01/17/2021 1:44 PM CDT Pulse 75 01/17/2021 1:44 PM CDT Temperature 36.7 ??C (98 ??F) 01/17/2021 1:44 PM CDT Respiratory Rate 18 01/17/2021 1:44 PM CDT Oxygen Saturation 97% 01/17/2021 1:44 PM CDT Inhaled Oxygen Concentration - - Weight 57.2 kg (126 lb) 01/17/2021 1:44 PM CDT Height 170.2 cm (5' 7 ) 01/17/2021 1:44 PM CDT Body Mass Index 19.73 01/17/2021 1:44 PM CDT documented in this encounter Progress Notes * Omar Seymour MD - 01/17/2021 12:00 AM CDT PATIENT NAME: ADI NICHOLS : 1995 JUSTEN: 01/17/2021 REASON FOR REFERRAL: Pulmonary nodules. HISTORY OF PRESENT ILLNESS: Mr. Nichols is a 25-year-old male with a past medical history of liver transplant for autoimmune hepatitis in 1998, complicated by posttransplant lymphoproliferative disorder, status post EPOCH-R, and CVID on IVIG who presents for further evaluation of pulmonary nodules. He was found to have diffuse l ymphadenopathy prompting bronchoscopic evaluation with BAL and EBUS of a subcarinal lymph node in March 2017, which yielded only an atypical lymphoid infiltrate and was not conclusive. However, subsequent lymph node biopsy was consistent with EBV positive PTLD, and he underwent chemotherapy with EPOCH-R from 2016 to 2017. He has had persistent diffuse lymphadenopathy and underwent a right cervical biopsy in December 2018 that was EBV positive, though a left axillary biopsy in October 2019 was negative. He had the onset of arthralgias and myalgias, particularly to his knees and shoulders as well as his hands, such that he had difficulty opening jars and underwent an autoimmune workup, which was unrevealing. He was found to have low levels of immunoglobulins G, A, and M and was treated with IVIG starting in October 2020 with subsequent resolution of his arthralgias and myalgias. He last received IVIG 1 week ago. He is currently feeling well and denies dyspnea, cough, wheeze, or rash. He does have a history of chronic sinus congestion and was treated for a sinus infection a few years ago. The symptoms are worse when the weather changes. He uses p.r.n. Tylenol or [place] cold formulation, but has otherwise not received treatments or ENT evaluation. Prior imaging is consistent with mucosal thickening of the maxillary sinuses. He has had episodes of epistaxis every several months for many years, but has not required evaluation by a healthcare professional for this. He denies dry eyes or mouth, difficulty swallowing, Raynaud's, or other complaints, though he does note persistent foci of neck swelling. 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 A CT of the abdomen and pelvis on 10/02/2020 showed interval increase in size and number of chronicbilateral pulmonary nodules in the lung bases as well as unchanged extensive abdominal lymphadenopathy and mediastinal and hilar lymphadenopathy, though a PET scan obtained the same day showed no significant change in the overall distribution of his markedly hypermetabolic lymphadenopathy, both above and below the diaphragm. Furthermore, an FDG-avid airspace opacity in the right upper lobe showedinterval resolution. Prior workup for his imaging findings has included negative serologic evaluation for histo (also with a negative urine histo antigen), blasto, toxo, Bartonella, Crypto, HIV, Aspergillus, and a negative T spot. An aldolase was elevated to 11.8 in September 2020 and CRP was elevated to 15.7. He has had waxing and waning peripheral eosinophilia with an absolute eosinophil count of 2100 K/cumm in October 2000. His course has also been complicated by pulmonary embolism in October 2017, CMV viremia, ITP status post splenectomy in 2012, and hepatic abscess. REVIEW OF SYSTEMS: A 12-point review of systems was performed and is otherwise negative except as per the HPI. MEDICATIONS: 1. Tacrolimus 0.5 mg b.i.d. 2. IVIG, last received a week ago. 3. Valganciclovir 450 mg. ALLERGIES: NO KNOWN DRUG ALLERGIES. PAST MEDICAL HISTORY: 1. 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 2. 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 3. Pulmonary embolism in October 2017. 4. CMV viremia. 5. PTLD, EBV positive, status post EPOCH-R in 2016 to 2017. Ongoing diffuse lymphadenopathy, thoughDecember 2019 left axillary biopsy negative. 6. Hepatic abscess, status post treatment. 7. 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 8. Arthralgias and myalgias to the upper and lower extremities, resolved following IVIG initiation.Limited autoimmune workup unrevealing. Also with waxing and waning chronic peripheral eosinophilia. SOCIAL HISTORY: He lives with his mother, father, sister, and niece in [place], [place]. They have 1 cat thatlives outside. No history of significant tobacco use (he briefly smoked many years ago), and he occasionally has a few drinks of alcohol. No illicits. No down feather pillows, comforters, or coats. No hot tubs or saunas. No mold or water damage in the home. 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 FAMILY HISTORY: His sister has type 1 diabetes. His mother had colorectal cancer. His grandfather had rheumatoid arthritis. PHYSICAL EXAMINATION: Vital Signs: Temperature 98 degrees, blood pressure 104/68, heart rate 75, respiratory rate 18, oxygen saturation 97% on room air, height 5 feet 7 inches, weight 126 pounds, BMI 19.7. General: Pleasant male, in no acute distress. HEENT: Oropharynx clear. Moist mucous membranes. No scleral icterus. Neck: Supple. Multiple scars. Palpable foci of submandibular/cervical lymphadenopathy bilaterally. Cardiovascular: Regular rate and rhythm. No murmurs, rubs, or gallops. Lungs: Clear to auscultation bilaterally. No increased work of breathing. No wheeze. Abdomen: Soft, nontender, nondistended. Normoactive bowel sounds. Extremities: Warm and well perfused. Some erythematous discoloration of the bilateral fingers. Otherwise, no cyanosis, clubbing, or edema. Neurologic: Alert and oriented. No focal neuro deficits appreciated. DATA: 1. 01/17/2021, pulmonary function tests: FVC 3.31 L or 66% predicted, FEV1 2.78 L or 67% predicted with no significant bronchodilator response, FEV1/FVC 84%. TLC 72% predicted. This is consistent with a mild restrictive ventilatory defect. When compared to a prior spirometry in January 2017, there has been interval decrease in the FVC. DLCO COR 62% predicted. AB.43/37/102/24.6. 2. 01/17/2021, 6-minute walk test: Breathing room air SpO2 is 100% at rest and during exercise sufficient to increase pulse from 78 to 94, is stable. He ambulated for 1270 feet with a maximum Maranda score of 0. This level of exercise was associated with no significant change of FEV1 or blood pressuredata. 3. 01/17/2021, chest x-ray: Multiple surgical clips are seen over the right upper quadrant and leftupper quadrant as well as right neck. No focal consolidation, pleural effusion, or pneumothorax. The cardiac silhouette is within normal limits. Unchanged mediastinal and hilar lymphadenopathy. ASSESSMENT AND PLAN: 1. Lung nodules and mediastinal/hilar lymphadenopathy. There was interval worsening of the basilar lung nodules on his October [address], though the PET-CT at that time was consistent with grossly stable, diffuse markedly hypermetabolic lymphadenopathy, both above and below the hemidiaphragm. A prior EBUS-guided biopsy in March 2017 showed atypical lymphocytes. It is unclear to what extent his current intrathoracic disease is due to PTLD or an alternative process, though I am doubtful it is malignancy related given PET negativity. We will obtain repeat dedicated chest CT for further assessment. Prior extensive serologic workup was unrevealing in early 2019. He could have an alternative autoimmune process such as vasculitis, i.e. EGPA, given his marked peripheral eosinophilia, arthralgias/myalgias that resolved with IVIG, and personal and family history of autoimmune disease. We will obtain further blood work including ANCA, IgE, and serum MyoMarker panel, and we will repeat his CBC with diff today. We will also repeat his aldolase and obtain a CK. 2. For his likely allergic rhinitis, we will prescribe Flonase. His sinusitis and episodes of epistaxis could also be consistent with, i.e., EGPA. 3. He refuses the flu shot. We will defer to Dr. Gillespie concerning COVID vaccination. 4. Return to clinic in 4 months with spirometry. Dictated by Omar Seymour M.D. Fellow I have seen and examined the patient and agree with the findings and plan of care as outlined by Dr. Omar Seymour MD. I have edited the note ELECTRONICALLY SIGNED - 01/19/2021 03:51 PM Jan Bailon M.D. Precision Millwrightservice worker helper NR/MS/adn cc: THEODORE GRESHAM MD [address] [facility] [address] [place] [address] / ANITA GILLESPIE M.D. [address] [place] [address] documented in this encounter Plan of Treatment Scheduled Procedures Name Priority Associated Diagnoses Date/Ti me COLONOSCOPY Encounter for screening for colorectal cancer in high risk patient Family history of rectal cancer documented as of this encounter Results * Pulmonary Function Test - (08/22/2021 2:07 PM CDT) Pathologist [facility] FVC PRE 2.99 L [facility] FVC %PRE PRED 60 % [facility] FEV1 PRE 2.42 L [facility] FEV1 %PRE PRED 58 % [facility] FEV1/FVC PRE 80.9 % [facility] Anatomical Region Laterality Modality PFT 08/22/2021 1:53 PM CDT Narrative 08/27/2021 7:18 PM CDT PFT performed at:->[facility] Adult PFT Lab- CAM-8D Procedure:->MIPS/MEPS Procedure:->Maximum Voluntary Ventilation Procedure:->Spirometry Jan Bailon MD PFT ORDERABLES Final Result * CT Chest High Resolution WO Contrast [...] changes from liver transplantation. Procedure Note Severiano Mason MD - 02/05/2021 EXAMINATION: Computed tomography of [...] Bailon MD IMG CT PROCEDURES Final Result * (ABNORMAL) CBC with auto differential (01/17/2021 4:21 PM CDT) WBC 6.9 3.8 - 9.9 K/cumm [facility] Hgb 14.1 13.0 - 17.5 g/dL [facility] Hct 40.3 38.9 - 50.3 % [facility] Plt 176 150 - 400 K/cumm [facility] MPV 10.9 9.1 - 12.3 fL [facility] RBC 4.29(L) 4.30 - 5.80 M/cumm [facility] MCV 93.9 81.3 - 96.4 fL [facility] MCH 32.9 27.1 - 33.3 pg [facility] MCHC 35.0 32.3 - 35.7 g/dL [facility] RDW CV 15.8(H) 11.1 - 14.9 % [facility] RDW SD 55.1(H) 35.7 - 48.1 fL [facility] NRBC abs 0.00 0.00 - 0.01 K/cumm [facility] Blood specimen (specimen) 01/17/2021 4:21 PM CDT 01/17/2021 4:34 PM CDT Jan Bailon MD LAB BLOOD ORDERABLES Final Res ult [facility] Department of Laboratories [place], [place] [id number] * Anti-Neutrophilic Cytoplasmic Antibody (ANCA) with Reflex to MPO and PR3 Abs (01/17/2021 4:21 PM CDT) ANCA Negative [facility] Blood specimen (specimen) 01/17/2021 4:21 PM CDT 01/17/2021 4:33 PM CDT us Jan Bailon MD LAB BLOOD ORDERABLES Final Res ult Performing Organization Address [facility] Co de Phone Number [facility] [place] [address] * Creatine kinase (CK), total (01/17/2021 4:17 PM CDT) CK 110 40 - 300 Units/L [facility] Blood specimen (specimen) 01/17/2021 4:17 PM CDT 01/17/2021 4:41 PM CDT us Jan Bailon MD LAB BLOOD ORDERABLES Final Res ult Performing Organization Address [facility] [employer] de Phone Number [facility] [place] [address] * (ABNORMAL) Aldolase (01/17/2021 4:17 PM CDT) Aldolase 11.5(H) 0.1 - 8.0 Units/L [facility] Blood specimen (specimen) 01/17/2021 4:17 PM CDT 01/17/2021 4:41 PM CDT us Jan Bailon MD LAB BLOOD ORDERABLES Final Res ult Performing Organization Address [facility] Co de Phone Number [facility] [place] [address] * IgE (01/17/2021 4:17 PM CDT) IgE <2.0 1.0 - 100.0 IUnits/mL [facility] Blood specimen (specimen) 01/17/2021 4:17 PM CDT 01/17/2021 4:41 PM CDT Jan Bailon MD LAB BLOOD ORDERABLES Final Res ult [facility] Department [place] [address] documented in this encounter Visit Diagnoses Diagnosis 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 IgG/hyaluronidase ,recombinant (HYQVIA SUBQ) Inject under the skin 12/27/2021 valGANciclovir (VALCYTE) 450 mg tablet Take 900 mg by mouth 2 (two) times a day 03/11/2021 added in this encounter Orders Outpatient Referral Count Last Ordered Date Fir st Ordered Date AMB REFERRAL TO PULMONOLOGY 1 01/17/2021 documented in this encounter Care Teams Flour Tester Relationship Specialty Start Date End Date Guero Colunga DO PCP - General Internal Medicine 03/22/19 04/18/23 Amber Montesinos, SHAILESH Fire Tower Keeper Transplant 11/17/19 Jil Duncan MD Consulting Physician Infectious Diseases 01/10/20 Anita Gillespie MD Medical Oncologist/Precision Assembly Inspector Medical Oncology 10/07/20 documented as of this encounter
--- OUTSIDE RECORDS SUMMARY | 2024-10-28 06:18 | XMS_ITS | Encounter Summary ---
Author Organization [facility] Address [address] [place] [address] Phone Care Team Providers Care Supervisor Finishing Room Name Role Phone Guero Colunga DO Primary Care Provider [phone] Amber Montesinos RN Unavailable [phone] Jil Duncan MD Unavailable [phone] Anita Gillespie MD Unavailable [phone] Reason for Visit * Reason Onset Date Comments MEDICATION APPROVAL 11/27/2020 Encounter Details Date Type Department Care Team (Late st Contact Info) Description 11/27/2020 Telephone [facility] Infectious Diseases [address] [place] [address] Ny Griffin MEDICATION APPROVAL Social History Tobacco Use Types Packs/Day Years Used Date Smoking Tobacco: Never Smokeless Tobacco: Current Chew Alcohol Use Standard Drinks/Week Comments Yes 0 (1 standard drink = 0.6 oz pur e alcohol) occassional Sex and Gender Information Value Date Recorded Sex Assigned at Not on file Legal Sex 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 Get [place] for iOS From: Ny Griffin <[email or web address]> Sent: Friday, November 27, 2020 9:26:14 AM To: Lisandra Auguste <[email or web address]>; Severino Valdez <[email or web address]> Subject: RE: Re: awesome Sent from [facility] [employer] From: Lisandra Auguste Sent: Friday, November 27, 2020 9:25 AM To: Severino Valdez; Ny Griffin Subject: Re: Re: I got a letter from [employer] that Valcyte was approved and shipment will be coordinated with the patient. Approval is for one year. Lisandra Auguste, RN, MSN, AGPCNP-C Nurse Practitioner, Infectious Diseases [facility] The materials in this e-mail are private and may contain Protected Health Information. If you are not the intended recipient, be advised that any unauthorized use, disclosure, copying, distribution or the taking of any action in reliance on the contents of this information is strictly prohibited. If you have received this e-mail in error, please immediately notify the sender via telephone at [phone] or by return e-mail. From: Severino Valdez <[email or web address]> Sent: Thursday, November 26, 2020 2:00 PM To: Lisandra Auguste <[email or web address]>; Ny Griffin <[email or web address]> Subject: Re: I spoke to at [employer]. Using brand name Valcyte, the copay comes back at $3134. Insurance is still paying more than $7000 towards the prescription. I also got the annual out of pocket cost to the foundation. They said they should have an answer today and would reach out to both your office and the patient. Have a great day and let me know if you need any thing else. Severino [employer] [place] [facility] From: Lisandra Auguste <[email or web address]> Sent: Wednesday, November 25, 2020 2:07:11 PM To: Severino Valdez <[email or web address]>; Ny Griffin <[email or web address]> Subject: Re: Re: I'll fax over now. Lisandra Auguste, RN, MSN, AGPCNP-C Nurse Practitioner, Infectious Diseases [facility] The materials in this e-mail are private and may contain Protected Health Information. If you are not the intended recipient, be advised that any unauthorized use, disclosure, copying, distribution or the taking of any action in reliance on the contents of this information is strictly prohibited. If you have received this e-mail in error, please immediately notify the sender via telephone at [phone] or by return e-mail. From: Severino Valdez <[email or web address]> Sent: Wednesday, November 25, 2020 2:01 PM To: Ny Griffin <[email or web address]> Cc: Lisandra Auguste <[email or web address]> Subject: Re: Can you send us a prescription for us to process? Will need that so we can get them the info they are requesting. , fax is [phone]. [facility] [place] [facility] From: Ny Griffin <[email or web address]> Sent: Wednesday, November 25, 2020 1:56:16 PM To: Severino Valdez <[email or web address]> Cc: Lisandra Auguste <[email or web address]> Subject: RE: Severino, See below: Spoke with merchandiser retail representative who states additional information is needed to process assistance requestfor Valcyte. They need to know if insurance is covering a portion of the cost and if so what is theannual out of pocket cost. If insurance is not going to cover a portion they need a denial reason and if this is able to be appealed. January Alfaro [phone], requesting a call back in regards to a medication application Sent from [employer] [facility] [employer] From: Severino Valdez Sent: Sunday, November 22, 2020 12:23 PM To: Ny Griffin Cc: Lisandra Auguste Subject: Re: Spoke to mom again and she is in the hospital with covid... With that being the case and with her permission, we signed off on her sheet and sent it in along with the doctors portion. We will follow up with the electric motor rebuilder next week. [employer] [place] [facility] [employer] From: Severino Valdez <[email or web address]> Sent: Sunday, November 22, 2020 9:16:18 AM To: Ny Griffin <[email or web address]> Cc: Lisandra Auguste < > Subject: Re: Spoke to mom, still waiting on their portion of the paperwork. Will follow up with her today. [facility] [place] [facility] From: Ny Griffin <[email or web address]> Sent: Sunday, November 22, 2020 8:47:34 AM To: Severino Valdez <[email or web address]> Cc: Lisandra Auguste < > Subject: RE: Rui Haq, any word on this one? Ny From: Severino Valdez < > Sent: Thursday, November 19, 2020 11:26 AM To: Ny Griffin <[email or web address]> Subject: Re: Thank you! Will get going on it. [facility] [place] [facility] From: Ny Griffin < > Sent: Thursday, November 19, 2020 10:37:03 AM To: Severino Valdez <[email or web address]> Subject: FW: Severino, Here is the paperwork needed from Lisandra on Beka Nichols. There were some spots she wasn't sure about, so she left blank, feel free to check whatever is needed. Thanks again for all of your help. Ny -----Original Message----- From: [email or web address] <[email or web address]> Sent: Thursday, November 19, 2020 11:32 AM To: Ny Griffin <[email or web address]> Subject: TASKalfa [id number] [[id number]] ISHING PRESS OPERATOR documented in this encounter Plan of Treatment Scheduled Procedures Name Priority Associated Diagnoses Date/Ti me COLONOSCOPY Encounter for screening for colorectal cancer in high risk patient Family history of rectal cancer documented as of this encounter Visit Diagnoses Not on filedocumented in this encounter Care Teams Supervisor Finishing Room Relationship Specialty Start Date End Date Guero Colunga DO PCP - General Internal Medicine 03/22/19 04/18/23 Amber Montesinos, SHAILESH Gas Combustion Engineer Transplant 11/17/19 Jil Duncan MD Consulting Physician Infectious Diseases 01/10/20 Anita Gillespie MD Medical Oncologist/Surtass Analyst Medical Oncology 10/07/20 documented as of this encounter
--- OUTSIDE RECORDS SUMMARY | 2024-10-28 06:18 | XMS_ITS | Encounter Summary ---
Author Organization [facility] Address [address] [place] [address] Phone Care Team Providers Care Business Transformation Consultant Name Role Phone Guero Colunga DO Primary Care Provider [phone] Amber Montesinos RN Unavailable [phone] Jil Duncan MD Unavailable [phone] Anita Gillespie MD Unavailable [phone] Encounter Details Date Type Department Care Team (Late st Contact Info) Description 10/29/2020 Telephone [facility] [address] [facility] 7th [place] [address] [place] [phone] Samreen Greene RN Social History Tobacco Use Types Packs/Day Years Used Date Smoking Tobacco: Never Smokeless Tobacco: Current Chew Alcohol Use Standard Drinks/Week Comments Yes 0 (1 standard drink = 0.6 oz pur e alcohol) occassional Sex and Gender Information Value Date Recorded Sex Assigned at Not on file Legal Sex 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 She states his strength his back and he isable to raise his arms up. 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 He still hasthe same cold symptoms he had at the beginning of the month, but these have not changed at all and he has no fevers. They are interested in moving forward with SQ injections at home if possible in the future. We will plan to give him an IV dose next week and will work on starting this in December. SCRIPTIONIST documented in this encounter Plan of Treatment Scheduled Procedures Name Priority Associated Diagnoses Date/Ti me COLONOSCOPY Encounter for screening for colorectal cancer in high risk patient Family history of rectal cancer documented as of this encounter Visit Diagnoses Not on filedocumented in this encounter Care Teams Business Transformation Consultant Relationship Specialty Start Date End Date Guero Colunga DO PCP - General Internal Medicine 03/22/19 04/18/23 Amber Montesinos RN Draw Machine Operator Transplant 11/17/19 Jil Duncan MD Consulting Physician Infectious Diseases 01/10/20 Anita Gillespie MD Medical Oncologist/Clinical Science Liaison Medical Oncology 10/07/20 documented as of this encounter
--- OUTSIDE RECORDS SUMMARY | 2024-10-28 06:18 | XMS_ITS | Encounter Summary ---
Author Organization [facility] Address [address] [place] [address] Phone Care Team Providers Care Softball Core Molder Name Role Phone Guero Colunga DO Primary Care Provider [phone] Amber Montesinos RN Unavailable [phone] Jil Duncan MD Unavailable [phone] Anita Gillespie MD Unavailable [phone] Reason for Referral * (Routine) - Closed Specialty Diagnoses / Procedures Referred By Sascha rey Referred To Contact Diagnoses History of liver transplant (CMS/HCC) (HCC) Procedures Pulmonary Function Test -[facility] Adult PFT Lab- CAM-8D; Spirometry, Spirometry with Bronchodilator, Oxygen Assessment Titration, ABG, DLCO, Lung Volumes; Pleth with Airway Resistance; Room Air ABG; Spirometry Jan Bailon MD [address] [place] [address] Phone: tel: fax: Referral ID Status Reason Start Date Expiration Date Visits Re quested Visits Authorized [id number] Closed 10/16/2020 11/15/2021 1 1 CUTTER * Diagnostic Imaging (Routine) - Closed Specialty Diagnoses / Procedures Referred By Contac t Referred To Contact Diagnoses History of liver transplant (CMS/HCC) (HCC) Procedures XR Chest Pa Lateral 2 Views Jan Bailon MD [address] [place] [address] Phone: tel: fax: [facility] [address] [facility] [place] [address] Referral ID Status Reason Start Date Expiration Date Visits Re quested Visits Authorized [id number] Closed 10/16/2020 11/15/2021 1 1 CUTTER Encounter Details Date Type Department Care Team (Late st Contact Info) Description 10/16/2020 Orders Only [facility] Pulmonary [address] [facility] Medicine 8th [place] [address] [place] [phone] Jan Bailon MD [address] [place] [address] History of liver transplant (CMS/HCC) (Primary Dx) Social History Tobacco Use Types Packs/Day Years Used Date Smoking Tobacco: Never Smokeless Tobacco: Current Chew Alcohol Use Standard Drinks/Week Comments Yes 0 (1 standard drink = 0.6 oz pur e alcohol) occassional Sex and Gender Information Value Date Recorded Sex Assigned at Not on file 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 Gender Identity Not on file Sexual [...] Bailon MD IMG XR PROCEDURES Final Result * Pulmonary Function Test - (01/17/2021 1:28 PM CDT) FVC PRE 3.31 L [facility] FVC %PRE PRED 66 % [facility] FVC POST 3.35 L [facility] FVC %POST PRED 67 % [facility] FEV1 PRE 2.78 L [facility] FEV1 %PRE PRED 67 % [facility] FEV1 POST 2.85 L [facility] FEV1 %POST PRED 68 % [facility] FEV1/FVC PRE 84.1 % [facility] FEV1/FVC POST 85.1 % [facility] FRC PL PRE 2.71 L [facility] FRC PL %PRE PRED 90 % [facility] RV PRE 1.25 L [facility] RV %PRE PRED 89 % [facility] TLC PRE 4.56 L [facility] TLC %PRE PRED 72 % [facility] DLCO PRE 18.4 ml/min/mmH g [facility] DLCO %PRE PRED 61 % [facility] FIO2 % 21.00 % [facility] PaO2 102.0 mmHg [facility] PaCO2 37.0 mmHg [facility] pH 7.43 [facility] A-aDO2 POC 1.0 mmHg [facility] METHGB % 1.0 % [facility] COHb POC 1.3 % [facility] HCO3 24.6 mEq/L [facility] Anatomical Region Laterality Modality PFT 01/17/2021 12:5 3 PM CDT Narrative 01/22/2021 11:13 AM CDT [facility] Division of Pulmonary & Critical Care Medicine [address] [place] [address]; [place] [address]; [place], [place] ??[address]; [phone] Pulmonary Function Laboratory Pulmonary Stress Test Simple/Oxygen Assessment Patient: Beka Nichols Date: 01/17/2021 Physician: Adamaris Ht: 67 in ?? Wt: 126 lbs Room: OP Instrument Lens Grinder: Sherry : 1995 Diagnosis: H/O Liver tx Time(min) Distance (ft)/ Crocker O2 L/M SpO2 HR Maranda* BP FEV1/ ?% Pred Rest: ?RA 100 78 0 110/64 2.78/67 ? Walk/Bike: ? 1 ??RA 99 92 0 ?? 2 ??RA 100 91 0 ?? 3 ??RA 100 92 0 ?? 4 ??RA 100 89 0 ?? 5 ??RA 100 90 0 ?? 6 min 0 sec ??1270 RA 100 94 0 ?? Recovery: ? 1 ??RA 100 78 0 115/68 2.60/62 2 ??RA 100 78 0 ? *Maranda rate of perceived exertion (1-10 dyspnea scale) ?? Yousif, CHEST 2003; 123:1408 Walk Test Summary: Six Minute Walk Distance: 1,270 ft Six minute Walk Work [distance (m) x body wt (kg)]: 22,083 kg.m (normal >60,000 kg.m) Oxygen required to maintain SpO2 greater than 90% during six minutes of walking: ??L/M Comments: Zero stops Interpretation: Breathing room air, SpO2 is normal at rest and during exercise sufficient to increase pulse from 78 to 94 b/min, SpO2 is stable. ??On this basis, SpO2 is adequate at rest breathing room air and while walking breathing room air. ??This level of exercise is associated with no significant change of FEV1. Neal Dalton MD By signing this report, the attending pulmonary physician certifies that he/she has personally reviewed and interpreted the graphic and numerical data associated with this pulmonary function study and has reviewed and /or edited a preliminary draft report and agrees with the written final report. PFT performed at:->[facility] Adult PFT Lab- CAM-8D Procedure:->Spirometry Procedure:->Spirometry with Bronchodilator Procedure:->Oxygen Assessment Titration Procedure:->ABG Procedure:->DLCO Procedure:->Lung Volumes Lung Volumes via:->Pleth with Airway Resistance ABG:->Room Air ABG DLCO:->Spirometry Jan Bailon MD PFT ORDERABLES Final Result documented in this encounter Visit Diagnoses Diagnosis History of liver transplant (CMS/HCC) (HCC)- Primary Liver replaced by transplant History of liver transplant (CMS/HCC) (HCC) Liver replaced by transplant History of liver transplant (CMS/HCC) (HCC) Liver replaced by transplant documented in this encounter Care Teams Softball Core Molder Relationship Specialty Start Date End Date Guero Colunga DO PCP - General Internal Medicine 03/22/19 04/18/23 Amber Montesinos, SHAILESH Hat Lacer Transplant 11/17/19 Jil Duncan MD Consulting Physician Infectious Diseases 01/10/20 Anita Gillespie MD Medical Oncologist/Dumper Bailer Operator Medical Oncology 10/07/20 documented as of this encounter
--- OUTSIDE RECORDS SUMMARY | 2024-10-28 06:18 | XMS_ITS | Encounter Summary ---
Author Organization [facility] Address [address] [place] [address] Phone Care Team Providers Care Concrete Pile Driver Operator Name Role Phone Guero Colunga DO Primary Care Provider [phone] Amber Montesinos RN Unavailable [phone] Jil Duncan MD Unavailable [phone] Anita Gillespie MD Unavailable [phone] Encounter Details Date Type Department Care Team (Late st Contact Info) Description 10/22/2020 Documentation [facility] Neuro Muscle [address] [facility] Medicine 6th [place] [address] [place] [address] Hans Mendes MD PhD [address] [place] [address] Social History Tobacco Use Types Packs/Day Years Used Date Smoking Tobacco: Never Smokeless Tobacco: Current Chew Alcohol Use Standard Drinks/Week Comments Yes 0 (1 standard drink = 0.6 oz pur e alcohol) occassional Sex and Gender Information Value Date Recorded Sex Assigned at Not on file 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 I was thrilled to hear him tell me that he is 100% back to his prior baseline following IVIg. For 3-4 days post infusion he was sore and quite immobile/nonfunctional from ongoing joint pain but by day 5 post infusion he was getting around better and for the last few days he is back to functioning at his normal baseline without any ongoing symptoms. I explained that we were investigating the event to determine what went wrong with him undergoing askin biopsy instead of a muscle biopsy and that I would be happy to provide them follow up or contact info should they wish to file a formal complaint. Beka seemed understanding. I told him that I was able to catch the error before the tissue was processed and communicated this to staff here to ensure that he wouldn't be billed for the procedure and that no tests would be run on the tissue in the [place] lab. I told him that I did not feel strongly about putting him through another biopsy at this point, given that he is now treated (we had delayed treatment a few days in anticipation of the biopsy) and doing well. However, I did emphasize that we could, and should, revisit the need for biopsy if his symptoms were to return or evolve. My hope of course is that with Ig maintenance therapy we won't have to revisit this again in the future. 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 He knows that if it does we can certainly revisit the idea of amuscle biopsy to gain more insight into the pathology underlying the symptoms and that if he preferred we could refer him for an open biopsy with ACCS, if he wasn't comfortable returning to have it done with us in neuromuscular. AURANT HOST/HOSTESS documented in this encounter Plan of Treatment Scheduled Procedures Name Priority Associated Diagnoses Date/Ti me COLONOSCOPY Encounter for screening for colorectal cancer in high risk patient Family history of rectal cancer documented as of this encounter Visit Diagnoses Not on filedocumented in this encounter Care Teams Concrete Pile Driver Operator Relationship Specialty Start Date End Date Gene ColungaeDO PCP - General Internal Medicine 03/22/19 04/18/23 Amber Montesinos, SHAILESH Director Biostatistics Transplant 11/17/19 Jil Duncan MD Consulting Physician Infectious Diseases 01/10/20 Anita Gillespie MD Medical Oncologist/Blending Machine Feeder Medical Oncology 10/07/20 documented as of this encounter
--- OUTSIDE RECORDS SUMMARY | 2024-10-28 06:18 | XMS_ITS | Encounter Summary ---
Author Organization [facility] Address [address] [place] [address] Phone Care Team Providers Care Group Fitness Department Head Name Role Phone Guero Colunga DO Primary Care Provider [phone] Amber Montesinos RN Unavailable [phone] Jil Valdez MD Unavailable [phone] Encounter Details Date Type Department Care Team (Latest Contact Info) Description 10/02/2020 9:00 AM EMERGENCY MAN Office Visit [facility] Oncology [facility] 7th [place] [address] [place] [address] 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); Hypogammaglobulinemia (CMS/HCC); Cytomegalovirus (CMV) viremia (CMS/HCC) Social History Tobacco Use Types Packs/Day Years Used Date Smoking Tobacco: Never Smokeless Tobacco: Current Chew Alcohol Use Standard Drinks/Week Comments Yes 0 (1 standard drink = 0.6 oz pur e alcohol) occassional Sex and Gender Information Value Date Recorded Sex Assigned at Not on file Legal Sex Male 6:28 AM EMERGENCY MAN Gender Identity Not on file Sexual Orientation Straight 08/22/2021 9: 23 AM CDT documented as of this encounter Last Filed Vital Signs Vital Sign Reading Time Taken Comments Blood Pressure 119/72 10/02/2020 8:27 AM EMERGENCY MAN Pulse 82 10/02/2020 8:27 AM EMERGENCY MAN Temperature 36.8 ??C (98.3 ??F) 10/02/2020 8:27 AM CS T Respiratory Rate 18 10/02/2020 8:27 AM EMERGENCY MAN Oxygen Saturation 97% 10/02/2020 8:27 AM EMERGENCY MAN Inhaled Oxygen Concentration - - Weight 56.2 kg (123 lb 12.8 oz) 10/02/2020 8:27 AM EMERGENCY MAN Height - - Body Mass Index 18.82 10/02/2020 7:40 AM EMERGENCY MAN documented in this encounter Patient Instructions * Patient Instructions* Samreen Greene RN - 10/02/2020 9:00 AM EMERGENCY MAN Images from the original note were not included. COVID-19 Information: https://www.bjc.org/coronavirus People at Risk for Serious Illness from COVID-19: https://www.cdc.gov/coronavirus/2019-ncov/specific -groups/gbbt-pood-rpcacmurcairt.html More Resources ??? World Health Organization (WHO): https://www.who.int/emergencies/diseases/porcr-fecbnxvznnx-3248 ??? CDC What Do You Need to Know Factsheet: https://www.cdc.gov/coronavirus/2019-ncov/downloads/3904-zuom-rhmpsmqba.pdf GENCY MAN documented in this encounter Progress Notes * Chapo Cabezas MD - 10/02/2020 12:00 AM CST PATIENT NAME: ADI NICHOLS : 1995 JUSTEN: 10/02/2020 DIAGNOSES: 1. 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 2. 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 3. Bilateral pulmonary emboli diagnosed on 10/19/2017. TREATMENT AND DISEASE COURSE: 1. R-CHOP x 1, 08/25/2017. 2. Dose adjusted EPOCH-R x 5, 09/15/2017 - 12/2017. Post-C2 PET: NV (5PS = 4), CR post C5 3. [...] decrease in size of his liver 6. Biopsy of background liver 05/14/2020 with T-cell predominant inflammatory infiltration without evidence of B or T-cell lymphoma INTERVAL HISTORY: Mr. Nichols returns to [facility] for continued follow-up of his PTLD. We last saw him 06/12/2020. His medical history is very complex and our records state back to 2013. However, he has hada number of medical issues predating his initial establishment with the [facility] system. 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 Eventually he required a splenectomy in 2012, but still the ITP was refractory to that. He established initially with Dr. Garcia here in 2013 and received several doses of IVIG with improvement in his autoimmune disorders. He established with Dr. Lemus and Dr. Gresham thereafter in the [facility] and was followed for numerous years with the development of diffuse lymphadenopathy. He had multiple biopsies, which demonstrated polyclonal T and B-cell lymphoid proliferation without evidence of monomorphic PTLD. That was until 2016 when he had a lymph node biopsy that demonstrated EBV-positive monomorphic PTLD that was EBV positive and positive for MYC gene rearrangement, although negative for IgH BCL2 translocation and BCL6 rearrangement. 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 Needless to say, his disease course has been challenging as well. He also had CMV viremia requiring treatment with ganciclovir and then valganciclovir as well as a liver abscess requiring IV antibiotics. He did have a liver biopsy in May of this year, which demonstrated inflammatory infiltrate and foci of lobular lymphoid aggregates and micro granulomas. No evidence of B or T-cell lymphoma. When we last saw him, he was actually doing fairly well. However, about 2 weeks ago, he called our office saying he was having difficulty raising his arms above his head. We were concerned for some type of neuropathy or neuromuscular condition. He was referred to our Neuromuscular Division.When he saw them, they thought his limitations were mainly more due to pain such as arthralgias andmyalgias with no clear weakness on his exam. He was noted to have an elevated aldolase and CRP withnormal creatine kinase and ESR. His KEISHA and rheumatoid factor were negative. His GEOVANNI was negative as well. 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 He is planned to have an EMG as well as muscle biopsy and then receive IVIG thereafter. Interestingly, over the past 2 days, he has noted improvement in his symptoms, specifically his pain in his shoulders and his hips has improved. He did not feel weak per se. He denies any weight loss or weight gain. He denies any new lymphadenopathy, but states the lymph nodes in his neck and axilla are stable. He denies any fevers, chills, night sweats, abdominal pain, nausea, vomiting, diarrhea. His review of systems is otherwise negative. MEDICATIONS: Tacrolimus 0.5 mg b.i.d. PHYSICAL EXAM: Vitals: Blood pressure 105/66, pulse 74, respirations 18, temperature 36.8, O2 sat 97%. Weight 56.2kg. General: This is a well-appearing gentleman, resting comfortably. Lungs: Clear to auscultation. Heart: Regular rate and rhythm. Nodes: A 1 cm left jugulodigastric, and [...] and lower extremities bilaterally. LABORATORY DATA: CMP notable for an alk phos of 51. AST and ALT are normal. LDH 302. White blood cell count 20.8, hemoglobin 14.4, platelets 382, ANC 11, ALC 4.9, monocytes 2.77, eosinophils 2.1. CMV 2916 international units/mL. CRP 17.3. ESR 5. IgG, IgA and IgM undetectable. Rheumatoid factor undetectable. KEISHA andanti-GEOVANNI negative. IMAGING: Head CT demonstrates FDG avid diffuse lymphadenopathy above and below the diaphragm with bilateral cervical and axillary lymphadenopathy which are larger, left axillary lymph node measuring 3.8 x 2 cm, previously 2 x 1.5 cm. Mediastinal lymphadenopathy stable, max SUV of 9.5. Inguinal lymph nodes sl ightly improved, left inguinal lymph node with max SUV of 9.9, right inguinal lymph node max is 6.5. Mild diffuse uptake in the knees and shoulders in a periarticular distribution. Mildly increased uptake in the right greater trochanter, possibly insertional enthesopathy, overall representing stable lymphadenopathy and disease. ASSESSMENT AND PLAN: 1. History of C-Myc positive posttransplant lymphoproliferative disorder, EBV positive, stage EYM, IPI 3 for stage, LDH, and extranodal sites. This is a 25-year-old man who is now 3 years status postdose-adjusted EPOCH-R initially achieving the complete metabolic remission. He continues to have diffuse lymphadenopathy. We repeated a PET scan today, which shows that some areas are increased in size and FDG avidity while some areas are decreased, but overall this disease seems to be stable. He did have florid follicular hyperplasia on a previous lymph node biopsy, but at this point nothing seems to warrant biopsy or re-biopsy. He did have a liver biopsy back in May which showed T-cell inflam mation. No evidence of lymphoma. We may perform repeat CT scans for surveillance. 2. Possible inflammatory arthritis. He does complain of pain in his shoulders and hips with increased FDG avidity on his PET-CT. He complains of muscle stiffness and he does have an elevated aldolaseand CRP. He is getting a muscle biopsy and an EMG to look for a neuromuscular problem, but this does sound more like inflammatory arthritis. It is unclear what the cause of this might be. He also seems to have an acquired an immunologic problem, although it is certainly possible this was congenitalas he has hypogammaglobulinemia. He did have hypogammaglobulinemia following treatment with rituximab for ITP back in the past. It is unclear what his baseline was and if his IgG levels previously that were elevated were related to receiving IVIG. We will see what the muscle biopsy shows and EMG but made to consider referral to Immunology or Rheumatology for further evaluation of his arthralgias and weakness that is limited based on effort. 3. 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 He does have hypogammaglobulinemia. Weare going to initiate treatment with IVIG on a monthly basis. 4. History of liver transplant. Remains on tacrolimus 0.5 mg daily and continues to follow with . 5. Distant history of pulmonary emboli. He is no longer on anticoagulation. 6. 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 His CMV level is stable. He follows with Dr. Head, but it appears there is no indication to treat him. Hopefully, adding IVIG to his regimen will allow his body to clear on its own. 7. Follow-up. We will see him back in 3 months. He knows to call in the interim if there are any questions or concerns. We will follow-up on the muscle biopsy and EMG as well. ELECTRONICALLY SIGNED - 10/06/2020 09:37 AM Chapo Cabezas M.D. Fellow I have seen and examined the patient and agree with the findings and plan of care as documented by and/or discussed with Chapo Cabezas M.D.. ELECTRONICALLY SIGNED - 10/08/2020 09:21 AM Anita Gillespie M.D. pump press operator Emily Chair in Medical Oncology SRG/SREEDHAR/mc cc: LENO GRESHAM MD [address] [facility] [address], [place] [address] GUERO COLUNGA DO [address] [place] [address] / GARRY FRANKS MD [address] [facility] [address] [place] [address] LINDA CHAPA MD [address] [place] [address] / JIL VALDEZ MD [address] [facility] [address] [place] [address] PHONE: [phone] Added CC: Jil Valdez M.D. GENCY MAN documented in this encounter Plan of Treatment Scheduled Procedures Name Priority Associated Diagnoses Date/Ti me COLONOSCOPY Encounter for screening for colorectal cancer in high risk patient Family history of rectal cancer documented as of this encounter Results * (ABNORMAL) Lactate dehydrogenase (LD) (10/02/2020 7:26 AM EMERGENCY MAN) Pathologist [facility] Lactate dehydrogenase (LDH) 302(H) 100 - 250 Units/L [facility] Comment:Testing performed by : [facility], [address] [place] [phone] Blood specimen (specimen) 10/02/2020 7:26 AM EMERGENCY MAN 10/02/2020 7:28 AM EMERGENCY MAN Anita Gillespie MD LAB BLOOD ORDERABLES Final Result [facility] Department [place] [address] * (ABNORMAL) Comprehensive metabolic panel (10/02/2020 7:26 AM EMERGENCY MAN) [facility] Sodium 143 135 - 145 mmol/L [facility] Comment:Testing performed by : [facility], [address] [place] [phone] Potassium, pl 4.0 3.3 - 4.9 mmol/L [facility] Comment:Testing performed by : [facility], [address] [place] [phone] Chloride 106 97 - 110 mmol/L [facility] Comment:Testing performed by : [facility], [address] [place] [phone] CO2 27 22 - 32 mmol/L [facility] Comment:Testing performed by : [facility], [address] [place] [phone] Anion gap 10 2 - 15 mmol/L [facility] Comment:Testing performed by : [facility], [address] [place] [phone] BUN 9 8 - 25 mg/dL [facility] Comment:Testing performed by : [facility], [address] [place] [phone] Creatinine 0.77(L) 0.80 - 1.30 mg/dL [facility] Comment:Testing performed by : [facility], [address] [place] [phone] Glucose 82 70 - 199 mg/dL [facility] Comment: [...] was last revised 2017. Testing performed by: [facility], [address] [place] [phone] Calcium 9.2 8.5 - 10.3 mg/dL [facility] Comment:Testing performed by : [facility], [address] [place] [phone] Bilirubin, total 0.5 0.1 - 1.2 mg/dL [facility] Comment:Testing performed by : [facility], [address] [place] [phone] Protein, pl 6.2(L) 6.5 - 8.5 g/dL [facility] Comment:Testing performed by : [facility], [address] [place] [phone] Albumin 4.3 3.5 - 5.0 g/dL [facility] Comment:Testing performed by : [facility], [address] [place] [phone] Alk phos 501(H) 40 - 130 Units/L [facility] Comment:Testing performed by : [address] [phone] ALT 48 7 - 55 Units/L [facility] Comment:Testing performed by : [facility], [address] [place] [phone] AST 35 10 - 50 Units/L [facility] Comment:Testing performed by : [address] [phone] Blood specimen (specimen) 10/02/2020 7:26 AM EMERGENCY MAN 10/02/2020 7:28 AM EMERGENCY MAN us Anita Gillespie MD LAB BLOOD ORDERABLES Final Result [facility] Department [place] [address] * (ABNORMAL) CBC with auto differential (10/02/2020 7:26 AM EMERGENCY MAN) WBC 20.8(H) 3.8 - 9.8 K/cumm [facility] Comment:Testing performed by : [facility], [address] [place] [phone] Hgb 14.4 13.8 - 17.2 g/dL [facility] Comment:Testing performed by : [address] [phone] Hct 42.6 40.7 - 50.3 % [facility] Comment:Testing performed by : [address] [phone] Plt 382 140 - 440 K/cumm [facility] Comment:Testing performed by : [address] [phone] MPV 7.6 6.8 - 10.4 fL [facility] Comment:Testing performed by : [facility], [address] [place] [phone] RBC 4.53 4.50 - 5.70 M/cumm [facility] Comment:Testing performed by : [facility], [address] [place] [phone] MCV 94.1 80.0 - 97.6 fL [facility] Comment:Testing performed by : [facility], [address] [place] [phone] MCH 31.7 26.7 - 33.7 pg [facility] Comment:Testing performed by : [facility], [address] [place] [phone] MCHC 33.7 32.7 - 35.5 g/dL [facility] Comment:Testing performed by : [facility], [address] [place] [phone] RDW CV 14.7(H) 11.8 - 14.6 % [facility] Comment:Testing performed by : [facility], [address] [place] [phone] NRBC abs 0.01 0.00 - 0.01 K/cumm [facility] Comment:Testing performed by : [facility], [address] [place] [phone] Blood specimen (specimen) 10/02/2020 7:26 AM EMERGENCY MAN 10/02/2020 7:28 AM EMERGENCY MAN us Anita Gillespie MD LAB BLOOD ORDERABLES Final Result [facility] Department of Laboratories [place], [place] [id number] documented in this encounter Visit Diagnoses Diagnosis 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 Hypogammaglobulinemia (HCC) Unspecified hypogammaglobulinemia 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 documented in this encounter Orders Appointment Requests Count Last Ordered Date Fi rst Ordered Date ONCBCN CLINIC APPOINTMENT REQUEST 1 020 documented in this encounter Care Teams Group Fitness Department Head Relationship Specialty Start Date End Date Guero Colunga DO PCP - General Internal Medicine 03/22/19 04/18/23 Amber Montesinos, SHAILESH Keypunch Operator Transplant 11/17/19 Jil Valdez MD Consulting Physician Infectious Diseases 01/10/20 documented as of this encounter
--- OUTSIDE RECORDS SUMMARY | 2024-10-28 06:18 | XMS_ITS | Encounter Summary ---
Author Organization [facility] Healthcare Address [address] [place] [address] Care Team Providers Care Supervisor Pile Driving Name Role Phone Guero Colunga DO Primary Care Provider [phone] Amber Montesinos RN Unavailable [phone] Jil Dunacn MD Unavailable [phone] Anita Gillespie MD Unavailable [phone] Encounter Details Date Type Department Care Team (Late st Contact Info) Description 01/02/2021 Documentation [facility] Transplant Liver [address] [facility] [phone] [place], [place] [id number] Amber Montesinos, SHAILESH Social History Tobacco Use Types Packs/Day Years Used Date Smoking Tobacco: Never Smokeless Tobacco: Current Chew Alcohol Use Standard Drinks/Week Comments Yes 0 (1 standard drink = 0.6 oz pur e alcohol) occassional Sex and Gender Information Value Date Recorded Sex Assigned at Not on file Legal Sex 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 Let them know that standing order was updated for [facility] in November. ET MAKER documented in this encounter Plan of Treatment Scheduled Procedures Name Priority Associated Diagnoses Date/Ti me COLONOSCOPY Encounter for screening for colorectal cancer in high risk patient Family history of rectal cancer documented as of this encounter Visit Diagnoses Not on filedocumented in this encounter Care Teams Supervisor Pile Driving Relationship Specialty Start Date End Date Guero Colunga DO PCP - General Internal Medicine 03/22/19 04/18/23 Amber Montesinos, SHAILESH Environmental Lawyer Transplant 11/17/19 Jil Duncan MD Consulting Physician Infectious Diseases 01/10/20 Anita Gillespie MD Medical Oncologist/Tooling Mechanic Medical Oncology 10/07/20 documented as of this encounter
--- OUTSIDE RECORDS SUMMARY | 2024-10-28 06:18 | XMS_ITS | Encounter Summary ---
Author Organization [facility] Address [address] [place] [address] Phone Care Team Providers Care Hr Representative Name Role Phone Guero Colunga DO Primary Care Provider [phone] Amber Montesinos RN Unavailable [phone] Jil Duncan MD Unavailable [phone] Anita Gillespie MD Unavailable [phone] Reason for Referral * (Routine) - Closed Specialty Diagnoses / Procedures Referred By Sascha rey Referred To Contact Diagnoses History of liver transplant (CMS/HCC) (HCC) Procedures Pulmonary Function Test -[facility] Adult PFT Lab- CAM-8D; Spirometry, Spirometry with Bronchodilator, Oxygen Assessment Titration, ABG, DLCO, Lung Volumes; Pleth with Airway Resistance; Room Air ABG; Spirometry Jan Bailon MD [address] [place] [address] Phone: tel: fax: Referral ID Status Reason Start Date Expiration Date Visits Re quested Visits Authorized [id number] Closed 10/16/2020 11/15/2021 1 1 Reason for Visit * (Routine) - Closed Specialty Diagnoses / Procedures Referred By Contac t Referred To Contact Diagnoses History of liver transplant (CMS/HCC) (HCC) Procedures Pulmonary Function Test -[facility] Adult PFT Lab- CAM-8D; Spirometry, Spirometry with Bronchodilator, Oxygen Assessment Titration, ABG, DLCO, Lung Volumes; Pleth with Airway Resistance; Room Air ABG; Spirometry Jan Bailon MD [address] [place] [address] Phone: tel: fax: Referral ID Status Reason Start Date Expiration Date Visits Re quested Visits Authorized [id number] Closed 10/16/2020 11/15/2021 1 1 Encounter Details Date Type Department Care Team (Latest Contact Info) Description 01/17/2021 12:41 PM CDT - 01/17/2021 1:34 PM CDT Hospital Encounter [facility] Pulmonary [address] [facility] [address] [place] [address] History of liver transplant (CMS/HCC) Discharge Disposition: [...] on file Legal 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 Gender Identity Not on file Sexual [...] Diagnosis Comments PULMONARY FUNCTION TEST (PFT) Routine 01/17/2021 1:28 PM CDT History of liver transplant (CMS/HCC) documented in this encounter Results * Pulmonary Function Test - (01/17/2021 1:28 PM CDT) FVC PRE 3.31 L [facility] FVC %PRE PRED 66 % [facility] FVC POST 3.35 L [facility] FVC %POST PRED 67 % [facility] FEV1 PRE 2.78 L [facility] FEV1 %PRE PRED 67 % [facility] FEV1 POST 2.85 L [facility] FEV1 %POST PRED 68 % [facility] FEV1/FVC PRE 84.1 % [facility] FEV1/FVC POST 85.1 % [facility] FRC PL PRE 2.[address] [facility] FRC PL %PRE PRED 90 % [facility] RV PRE 1.25 L [facility] RV %PRE PRED 89 % [facility] TLC PRE 4.56 L [facility] TLC %PRE PRED 72 % [facility] DLCO PRE 18.4 ml/min/mmH g [facility] DLCO %PRE PRED 61 % [facility] FIO2 % 21.00 % [facility] PaO2 102.0 mmHg [facility] PaCO2 37.0 mmHg [facility] pH 7.43 [facility] A-aDO2 POC 1.0 mmHg [facility] METHGB % 1.0 % [facility] COHb POC 1.3 % [facility] HCO3 24.6 mEq/L [facility] Anatomical Region Laterality Modality PFT 01/17/2021 12:5 3 PM CDT Narrative 01/22/2021 11:13 AM CDT [facility] Division of Pulmonary & Critical Care Medicine [address] [place] [address]; [address]; [place], [place] ??[address]; [phone] Pulmonary Function Laboratory Pulmonary Stress Test Simple/Oxygen Assessment Patient: Beka Nichols Date: 01/17/2021 Physician: Adamaris Ht: 67 in ?? Wt: 126 lbs Room: OP Institutional Aide: Sherry : 1995 Diagnosis: H/O Liver tx [...] with the written final report. PFT performed at:->[facility] Adult PFT Lab- [facility] Procedure:->Spirometry Procedure:->Spirometry with Bronchodilator Procedure:->Oxygen Assessment Titration Procedure:->ABG Procedure:->DLCO Procedure:->Lung Volumes Lung Volumes via:->Pleth with Airway Resistance ABG:->Room Air ABG DLCO:->Spirometry us Jan Bailon MD PFT ORDERABLES Final Result documented in this encounter Visit Diagnoses Diagnosis History of liver transplant (CMS/HCC) (HCC) Liver replaced by transplant documented in this encounter Care Teams Hr Representative Relationship Specialty Start Date End Date Gene ColungaeDO PCP - General Internal Medicine 03/22/19 04/18/23 Amber Montesinos RN Newsroom Intern Transplant 11/17/19 Jil Duncan MD Consulting Physician Infectious Diseases 01/10/20 Anita Gillespie MD Medical Oncologist/Glass Mould Cleaner Medical Oncology 10/07/20 documented as of this encounter
--- OUTSIDE RECORDS SUMMARY | 2024-10-28 06:18 | XMS_ITS | Encounter Summary ---
Author Organization [facility] Address [address] [place] [address] Phone Care Team Providers Care Mingler Operator Name Role Phone Guero Colunga DO Primary Care Provider [phone] Amber Montesinos RN Unavailable [phone] Jil Duncan MD Unavailable [phone] Anita Gillespie MD Unavailable [phone] Reason for Visit * Episode Based Medications (Routine) - Closed Specialty Diagnoses / Procedures Referred By Contac t Referred To Contact Diagnoses Hypogammaglobulinemia (HCC) Procedures [place] GAMUNEX-C/GAMMAKED Anita Gilelspie MD [address] [facility] [address] [place] [address] Phone: tel: fax: [facility] [address] [place] [address] [place] [address] Phone: tel: Referral ID Status Reason Start Date Expiration Date Visits Re quested Visits Authorized [id number] Closed 09/20/2020 03/20/2021 1 12 Encounter Details Date Type Department Care Team (Latest Contact Info) Description 11/06/2020 9:30 AM FOUNTAIN SERVER Infusion [facility] Pending sale to [facility] [address] [place] [address] Hypogammaglobulinemia (CMS/HCC) (Primary Dx) Social History Tobacco Use Types Packs/Day Years Used Date Smoking Tobacco: Never Smokeless Tobacco: Current Chew Alcohol Use Standard Drinks/Week Comments Yes 0 (1 standard drink = 0.6 oz pur e alcohol) occassional Sex and Gender Information Value Date Recorded Sex Assigned at Not on file Legal Sex Male 6:28 AM FOUNTAIN SERVER Gender Identity Not on file Sexual Orientation Straight 08/22/2021 9: 23 AM CDT documented as of this encounter Last Filed Vital Signs Vital Sign Reading Time Taken Comments Blood Pressure 118/74 11/06/2020 11:50 AM FOUNTAIN SERVER Pulse 71 11/06/2020 11:50 AM FOUNTAIN SERVER Temperature 36.6 ??C (97.9 ??F) 11/06/2020 11:[address] Respiratory Rate 18 11/06/2020 11:50 AM FOUNTAIN SERVER Oxygen Saturation 98% 11/06/2020 11:50 AM FOUNTAIN SERVER Inhaled Oxygen Concentration - - Weight - - Height - - Body Mass Index - - documented in this encounter Nursing Notes * Neha Wilkins RN - 11/06/2020 9:30 AM CST Treatment tolerated well without complications. Return appts given. Discharged ambulatory in stablecondition. TAIN SERVER documented in this encounter Plan of Treatment [...] 30 g 30 g, intravenous, Once, On Wed11/06/20 at 1030, For 1 dose, GamuNEX C SUBSEQUENT Infusion, 15 Minute Titration Patient Weight: 58.3 kg Initiate Infusion at 0.6 mL/kg/hr. If no reaction, may increase rate by 0.6 mL/kg/hr every 15 minutes, to a max of 4.8 mL/kg/hr 1 . 0.6 mL/kg/hr = Infuse 9 mL over 15 minutes (Rate = 35 mL/hr) 2 . 1.2 mL/kg/hr = Infuse 17 mL over 15 minutes (Rate = 70 mL/hr) 3 . 1.8 mL/kg/hr = Infuse 26 mL over 15 minutes (Rate = 105 mL/hr) 4 . 2.4 mL/kg/hr = Infuse 35 mL over 15 minutes (Rate = 140 mL/hr) 5 . 3.0 mL/kg/hr = Infuse 44 mL over 15 minutes (Rate = 175 mL/hr) 6 . 3.6 mL/kg/hr = Infuse 52 mL over 15 minutes (Rate = 210 mL/hr) 7 . 4.2 mL/kg/hr = Infuse 61 mL over 15 minutes (Rate = 245 mL/hr) 8 . 4.8 mL/kg/hr for remainder (Rate = 280 mL/hr) FERNANDEZ Titrations Only: Gamunex Initial: - Initiate infusion at 0.6 mL/kg/hr. If no reaction, may increase rate by 0.6 mL/kg/hr every 30 minutes, to a max of 4.8 mL/kg/hr Gamunex Subsequent: - Initiate at 0.6 mL/kg/hr. If no reaction, may increase rate by 0.6 mL/kg/hr every 15 minutes, to a max of 4.8 mL/kg/hr IVIG is to be dosed on IBW unless the actual body weight is less than ideal. If actual body weight is less than ideal body weight, [facility] pharmacies to adjust doses to use the actual body weight per P&T approved protocol. pharmacies to call prescriber for dose adjustments.Indications:Hy pogammaglobulinemia (HCC) Rate/Dose Change 11/06/2020 11:34 AM FOUNTAIN SERVER 280 mL/hr Rate/Dose Change 11/06/2020 11:17 AM FOUNTAIN SERVER 245 mL /hr Rate/Dose Change 11/06/2020 11:01 AM FOUNTAIN SERVER 210 mL /hr documented in this encounter Orders Nursing Count Last Ordered Date First Orde red Date ONCBCN NO PREMEDS NEEDED 1 11/06/2020 ONCBCN NURSING COMMUNICATION [id number] 2 0 11/06/2020 VITAL SIGNS INTRA-INFUSION 1 11/06/2020 Appointment Requests Count Last Ordered Date Fi rst Ordered Date INFUSION APPT REQUEST 300 MIN 1 11/06/2020 documented in this encounter Care Teams Mingler Operator Relationship Specialty Start Date End Date Guero Colunga DO PCP - General Internal Medicine 03/22/19 04/18/23 Amber Montesinos RN Coal Bagger Transplant 11/17/19 Jil Duncan MD Consulting Physician Infectious Diseases 01/10/20 Anita Gillespie MD Medical Oncologist/Full Time Babysitter Medical Oncology 10/07/20 documented as of this encounter
--- OUTSIDE RECORDS SUMMARY | 2024-10-28 06:18 | XMS_ITS | Encounter Summary ---
Author Organization [facility] Healthcare Address [address] [place] [address] Care Team Providers Care Second Officer Name Role Phone Guero Colunga Primary Care Provider [phone] Amber Montesinos RN Unavailable [phone] Jil Duncan MD Unavailable [phone] Anita Gillespie MD Unavailable [phone] Reason for Referral * Consultation (Routine) - Closed Specialty Diagnoses / Procedures Referred By Contac t Referred To Contact Pulmonary Disease / Pulmonology Diagnoses History of liver transplant (CMS/HCC) (HCC) Theodore Gresham MD Phone: tel: fax: Александр Mcmillan MD Phone: tel: fax: Referral ID Status Reason Start Date Expiration Date V isits Requested Visits Authorized [id number] Closed Specialty Services Required 10/07/2020 11/06/2021 12 12 Question Answer Please select the performing region: [facility] (All Locations) [167] # of visits: 1 Comments Any provider can perform. Patient liver transplant recipient and follows with Dr. Gillespie for hx of PTLD. Patient with recent CT abdomen 3 phase on 10/02/20 that notes: Interval increase in size/number of bilateral pulmonary nodules within the visualized lung bases . ITIONIST Encounter Details Date Type Department Care Team (Late st Contact Info) Description 10/07/2020 Orders Only [facility] Transplant Liver [address] [facility] [phone] [place] [address] Amber Montesinos, SHAILESH History of liver transplant (CMS/HCC) (Primary Dx) Social History Tobacco Use Types Packs/Day Years Used Date Smoking Tobacco: Never Smokeless Tobacco: Current Chew Alcohol Use Standard Drinks/Week Comments Yes 0 (1 standard drink = 0.6 oz pur e alcohol) occassional Sex and Gender Information Value Date Recorded Sex Assigned at Not on file Legal Sex Male 6:28 AM NUTRITIONIST Gender Identity Not on file Sexual Orientation Straight 08/22/2021 9: 23 AM CDT documented as of this encounter Plan of Treatment Scheduled Procedures Name Priority Associated Diagnoses Date/Ti me COLONOSCOPY Encounter for screening for colorectal cancer in high risk patient Family history of rectal cancer Scheduled Referrals Name Type Priority Associated Diagnoses Order Schedule Ambulatory referral to Pulmonology Outpatient Referral Routine History of liver transplant (CMS/HCC) Expected: 10/14/2020 (Approximate), Expires: 10/07/2021 documented as of this encounter Visit Diagnoses Diagnosis History of liver transplant (CMS/HCC) (HCC)- Primary Liver replaced by transplant documented in this encounter Care Teams Second Officer Relationship Specialty Start Date End Date Guero Colunga DO PCP - General Internal Medicine 03/22/19 04/18/23 Amber Montesinos, RN Athlete Manager Transplant 11/17/19 Jil Duncan MD Consulting Physician Infectious Diseases 01/10/20 Anita Gillespie MD Medical Oncologist/Cherry Sorter Medical Oncology 10/07/20 documented as of this encounter
--- OUTSIDE RECORDS SUMMARY | 2024-10-28 06:18 | XMS_ITS | Encounter Summary ---
Author Organization [facility] Healthcare Address [address] [place] [address] Care Team Providers Care Analysis Analyst Name Role Phone Guero Colunga DO Primary Care Provider [phone] Amber Montesinos RN Unavailable [phone] Jil Duncan MD Unavailable [phone] Encounter Details Date Type Department Care Team (Late st Contact Info) Description 10/04/2020 Documentation [facility] Transplant Liver [address] [facility] [phone] [place] [address] Amber Montesinos RN Social History Tobacco Use Types Packs/Day Years Used Date Smoking Tobacco: Never Smokeless Tobacco: Current Chew Alcohol Use Standard Drinks/Week Comments Yes 0 (1 standard drink = 0.6 oz pur e alcohol) occassional Sex and Gender Information Value Date Recorded Sex Assigned at Not on file Legal Sex Male 6:28 AM LEADERSHIP PROGRAM INTERNSHIP Gender Identity Not on file Sexual Orientation Straight 08/22/2021 9: 23 AM CDT documented as of this encounter Progress Notes * Amber Vargas, SHAILESH - 10/04/2020 4:59 PM CST Labs and CT impression reviewed with Dr. Gresham. No changes to current therapy indicated at thistime. Will continue to follow up with labs to see if improvement after IVIG. ERSHIP [employer]GRAM INTERNSHIP documented in this encounter Plan of Treatment Scheduled Procedures Name Priority Associated Diagnoses Date/Ti me COLONOSCOPY Encounter for screening for colorectal cancer in high risk patient Family history of rectal cancer documented as of this encounter Visit Diagnoses Not on filedocumented in this encounter Care Teams Analysis Analyst Relationship Specialty Start Date End Date Guero Colunga DO PCP - General Internal Medicine 03/22/19 04/18/23 Amber Montesinos, RN Outreach Manager Transplant 11/17/19 Jil Duncan MD Consulting Physician Infectious Diseases 01/10/20 documented as of this encounter
--- OUTSIDE RECORDS SUMMARY | 2024-10-28 06:18 | XMS_ITS | Encounter Summary ---
Author Organization [facility] Healthcare Address [address] [place] [address] Care Team Providers Care On Air Director Name Role Phone Guero Colunga Primary Care Provider [phone] Amber Montesinos RN Unavailable [phone] Jil Duncan MD Unavailable [phone] Anita Gillespie MD Unavailable [phone] Encounter Details Date Type Department Care Team (Late st Contact Info) Description 01/09/2021 Telephone [facility] Transplant Liver [address] [address] [phone] [place] [address] Amber Montesinos RN Social History Tobacco Use Types Packs/Day Years Used Date Smoking Tobacco: Never Smokeless Tobacco: Current Chew Alcohol Use Standard Drinks/Week Comments Yes 0 (1 standard drink = 0.6 oz pur e alcohol) occassional Sex and Gender Information Value Date Recorded Sex Assigned at Not on file 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 STORE Gender Identity Not on file Sexual Orientation Straight 08/22/2021 9: 23 AM CDT documented as of this encounter Miscellaneous Notes * Telephone Encounter - Amber Vargas RN - 01/09/2021 1:49 PM CST Returned call to Lori. Overton stating that patient has been doing well. His joint pain has been improved at home since his transfusions. He started a new job recently. He is supposed to have an appointment with Dr. Duncan soon. She reports that herself and other family members recently had COVID and are recovering. Beka fortunately did not get it. We discussed that his SO is updated at [facility] if he is able to get labs done there soon. She wants to know if he does not want to go to [facility], can he get them with Dr. Gillespie's labs in January. Let her know that I would enter the labs for [facility] if thatis what patient prefers to do. Discussed that LFT's have been elevated with the previous few blood draws. Coordinator does not know when ID would like (if any) another CMV PCR checked after restarting the valcyte so lab entered as well. [facility] documented in this encounter Plan of Treatment Scheduled Procedures Name Priority Associated Diagnoses Date/Ti me COLONOSCOPY Encounter for screening for colorectal cancer in high risk patient Family history of rectal cancer documented as of this encounter Results * Tacrolimus level trough (02/05/2021 8:36 AM CDT) Tacrolimus trough 6.8 ng/mL [facility] Comment: Interpretive Data Testing performed by liquid chromatography-tandem mass spectrometry. ??Therapeutic concentrations vary depending on type of transplanted organ and time elapsed since transplant. ??Typical trough concentrations range from 5-15 ng/mL. ??This test was developed and its performance characteristics determined by the [facility] consistent with CLIA requirements. ??This test has not been cleared or approved by the [place] Food and Drug administration. ??Current interpretive data last reviewed 2020. Blood specimen (specimen) 02/05/2021 8:36 AM CDT 02/05/2021 8:53 AM CDT Narrative [facility] - 02/05/2021 11:40 AM CDT *Please draw with Dr. Gillespie's labs* Rafia Bautista MD LAB BLOOD ORDERABLES Final Result [facility] [place] [address] * (ABNORMAL) Gamma GT (02/05/2021 8:36 AM CDT) GGT 250(H) 10 - 50 Units/L [facility] Comment:Testing performed by : [facility], [address] [place] [id number] Blood specimen (specimen) 02/05/2021 8:36 AM CDT 02/05/2021 8:37 AM CDT Narrative [facility] - 02/05/2021 8:55 AM CDT *Please draw with Dr. 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) Hypogammaglobulinemia (HCC) Unspecified hypogammaglobulinemia Cytomegalovirus infection, unspecified cytomegaloviral infection type (HCC) History of liver transplant (CMS/HCC) (HCC) Liver replaced by transplant documented in this encounter Care Teams On Air Director Relationship Specialty Start Date End Date Guero Colunga DO PCP - General Internal Medicine 03/22/19 04/18/23 Amber Montesinos, SHAILESH Signal Maintainer Helper Transplant 11/17/19 Jil Duncan MD Consulting Physician Infectious Diseases 01/10/20 Anita Gillespie MD Medical Oncologist/Practical Nurse Medical Oncology 10/07/20 documented as of this encounter
--- OUTSIDE RECORDS SUMMARY | 2024-10-28 06:18 | XMS_ITS | Encounter Summary ---
Author Organization [facility] Address [address] [place] [address] Phone Care Team Providers Care Used Car Lot Porter Name Role Phone Guero Colunga DO Primary Care Provider Amber Montesinos RN Unavailable [phone] Jil Duncan MD Unavailable [phone] Encounter Details Date Type Department Care Team (Late st Contact Info) Description 10/02/2020 8:00 AM SOLE TACKER Office Visit [facility] Gastroenterology [facility] Medicine 8th [place] [address] [place] [address] Theodore Gresham MD [address] [place] [address] History of liver transplant (CMS/HCC) (Primary Dx) Social History Tobacco Use Types Packs/Day Years Used Date Smoking Tobacco: Never Smokeless Tobacco: Current Chew Alcohol Use Standard Drinks/Week Comments Yes 0 (1 standard drink = 0.6 oz pur e alcohol) occassional Sex and Gender Information Value Date Recorded Sex Assigned at Not on file Legal Sex Male 6:28 AM SOLE TACKER Gender Identity Not on file Sexual Orientation Straight 08/22/2021 9: 23 AM CDT documented as of this encounter Last Filed Vital Signs Vital Sign Reading Time Taken Comments Blood Pressure 105/66 10/02/2020 7:40 AM SOLE TACKER Pulse 74 10/02/2020 7:40 AM SOLE TACKER Temperature 37 ??C (98.6 ??F) 10/02/2020 7:40 AM SOLE TACKER Respiratory Rate - - Oxygen Saturation - - Inhaled Oxygen Concentration - - Weight 57.2 kg (126 lb) 10/02/2020 7:40 AM SOLE TACKER Height 172.7 cm (5' 8 ) 10/02/2020 7:40 AM SOLE TACKER Body Mass Index 19.16 10/02/2020 7:40 AM SOLE TACKER documented in this encounter Progress Notes * Theodore Gresham MD - 10/02/2020 12:00 AM CST PATIENT NAME: ADI NICHOLS : 1995 JUSTEN: 10/02/2020 HISTORY OF PRESENT ILLNESS: This is a return office visit for Adi Nichols to [facility]. Mr. 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 Gillespie on treatment history). Additional recent issues that have arisen post transplant include persistent CMV viremia,evidence for common variable immunodeficiency, the development of an isolated hepatic abscess treated with antibiotic therapy, and finally, relatively recent development of cholestatic liver test abnormalities of uncertain cause. 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 He has remained free of fevers or chills. He occasionally continues to develop cervical adenopathy,though not as prominent in the past. Otherwise, he remains stable and all other systems are negative. CURRENT MEDICATIONS: Tacrolimus 0.5 mg bid. PHYSICAL EXAMINATION: VITAL SIGNS: Weight 126 pounds, blood pressure 105/66, temperature 98.6, pulse 74. GENERAL: Fit-appearing. HEENT: Showed a few cervical and submandibular lymph nodes. CHEST: Clear to auscultation, bilaterally. CARDIAC: Regular heart tones. ABDOMEN: Thin and soft without appreciable organomegaly. EXTREMITIES: No edema. LABORATORIES: (10/02/2020) sodium 143, creatinine 0.77, albumin 4.3, total bilirubin 0.5, alkaline phosphatase 501, AST 35, ALT 48. WBC 20.8, hemoglobin 14.4, platelets 382,000. (09/16/2020) IgG <300, IgA <50, IgM <25. (06/12/2020) CMV 3.46 logIU/mL. MEDICAL DECISION-MAKING: Mr. Nichols' posttransplant course has been complicated. Among the issues that have arisen include the presence of persistent CMV viremia. Approximately 6 months ago, in the face of persistent viremia despite oral valganciclovir, he was hospitalized for IV ganciclovir yet this this not achieve control of vremia. Given the concern for inducing resistance with continued treatment, the antiviral were stopped, and he has continued to be monitored. The finding of pattern of the Ig characteristic of CVID may explain why control of CMV was difficult. It is my understanding that he will begin IVIG oncethe muscle biopsy is completed. Mr. Nichols developed evidence for an abscess in his liver around October 2019. Following treatment with antibiotics, this has continued to shrink in size. At his most recent MRI done in January 2020, that site in segment 4 continued to involute, measuring 2.3 cm. He is on the schedule for a PET-CT today as part of his evaluation by Dr. Gillespie, and I would like to see if that provides any evidenceabout the size of the lesion and whether or not additional MRI imaging is obtained. The last issue is the alkaline phosphatase. This has not yielded to clear evaluation. MRI imaging showed no evidence for ductal dilation and liver biopsy, the most recent of which was done on 05/14/2020, showed only a (non-clonal) sinusoidal T-cell predominant infiltrate and foci of lobular lymphoid aggregates and microgranulomas. The relationship between this finding, the CMV, and the CVID is unclear; the effect of IVIG on the alk phos reponse will be watched and we can always consider a trialof UDCA. I tentatively scheduled Adi to return to clinic in 1 year, and we will continue to monitor his labs on a scheduled basis. ELECTRONICALLY SIGNED - 10/02/2020 10:19 PM Theodore Gresham MD Professor, Medicine Division of Gastroenterology DAVI/rosanna cc: LAURA GILLESPIE M.D. / JIL DUNCAN MD / GUERO COLUNGA DO / / GARRY FRANKS MD / TACKER documented in this encounter Plan of Treatment Scheduled Procedures Name Priority Associated Diagnoses Date/Ti me COLONOSCOPY Encounter for screening for colorectal cancer in high risk patient Family history of rectal cancer documented as of this encounter Visit Diagnoses Diagnosis History of liver transplant (CMS/HCC) (HCC)- Primary Liver replaced by transplant documented in this encounter Care Teams Used Car Lot Porter Relationship Specialty Start Date End Date Guero Colunga DO PCP - General Internal Medicine 03/22/19 04/18/23 Amber Montesinos, SHAILESH Generator Man Transplant 11/17/19 Jil Duncan MD Consulting Physician Infectious Diseases 01/10/20 documented as of this encounter
--- OUTSIDE RECORDS SUMMARY | 2024-10-28 06:18 | XMS_ITS | Encounter Summary ---
Author Organization [facility] Healthcare Address [address] [place] [address] Care Team Providers Care Company Manager Name Role Phone Guero Colunga Primary Care Provider [phone] Amber Montesinos RN Unavailable [phone] Jil Duncan MD Unavailable [phone] Anita Gillespie MD Unavailable [phone] Encounter Details Date Type Department Care Team (Late st Contact Info) Description 10/23/2020 Orders Only [facility] Transplant Liver [address] [facility] [id number] [place], [place] [id number] Amber Montesinos RN History of liver transplant (CMS/HCC) (Primary Dx) Social History Tobacco Use Types Packs/Day Years Used Date Smoking Tobacco: Never Smokeless Tobacco: Current Chew Alcohol Use Standard Drinks/Week Comments Yes 0 (1 standard drink = 0.6 oz pur e alcohol) occassional Sex and Gender Information Value Date Recorded Sex Assigned at Not on file Legal Sex Male 6:28 AM BOND RUNNER Gender Identity Not on file Sexual Orientation Straight 08/22/2021 9: 23 AM CDT documented as of this encounter Plan of Treatment Scheduled Procedures Name Priority Associated Diagnoses Date/Ti me COLONOSCOPY Encounter for screening for colorectal cancer in high risk patient Family history of rectal cancer documented as of this encounter Results * (ABNORMAL) Cytomegalovirus (CMV) DNA PCR, quantitative Blood (11/06/2020 7:54 AM BOND RUNNER) [facility] Signature CMV DNA Detected( A) [facility] Comment: Interpretive Data: The quantifiable range of this assay is 137 IUnits/mL to 9,100,000 IUnits/mL (2.14 log IUnits/mL to 6.96 log IUnits/mL). Testing was performed by the [employer] AmpliPrep/NIA TaqMan CMV Test ([employer] Testing performed at [facility] Current interpretive data was last revised on 17. CMV DNA IU/mL 2,127 IUnits/mL [facility] CMV DNA log IU/mL 3.33 log IUnits/mL [facility] Blood specimen (specimen) 11/06/2020 7:54 AM BOND RUNNER 11/06/2020 2:59 PM BOND RUNNER Narrative [facility] - 11/06/2020 9:27 PM BOND RUNNER *Please draw along with Dr. 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
--- OUTSIDE RECORDS SUMMARY | 2024-10-28 06:18 | XMS_ITS | Encounter Summary ---
Author Organization [facility] Address [address] [place] [address] Phone Care Team Providers Care Social Science Research Assistant Name Role Phone Guero Colunga DO Primary Care Provider [phone] Amber Montesinos RN Unavailable [phone] Jil Duncan MD Unavailable [phone] Anita Gillespie MD Unavailable [phone] Reason for Referral * Diagnostic Lab (Routine) - Closed Specialty Diagnoses / Procedures Referred By Sascha rey Referred To Contact Lab Diagnoses Myalgia Chronic arthralgias of knees and hips Procedures Neuromuscular Testing ([facility]) Hans Mendes MD PhD [address] [place] [address] Phone: tel: fax: Referral ID Status Reason Start Date Expiration Date Visits Re quested Visits Authorized [id number] Closed 10/08/2020 11/07/2021 1 1 CTOR GLOBAL DEVELOPMENT Encounter Details Date Type Department Care Team (Late st Contact Info) Description 10/08/2020 Orders Only [facility] Neuro Muscle [address] [facility] 6th [place] [address] [place] [address] Hans Mendes MD PhD [address] [place] [address] Myalgia (Primary Dx); Chronic arthralgias of knees and hips Social History Tobacco Use Types Packs/Day Years Used Date Smoking Tobacco: Never Smokeless Tobacco: Current Chew Alcohol Use Standard Drinks/Week Comments Yes 0 (1 standard drink = 0.6 oz pur e alcohol) occassional Sex and Gender Information Value Date Recorded Sex Assigned at Not on file Legal Sex Male 6:28 AM DIRECTOR GLOBAL DEVELOPMENT Gender Identity Not on file Sexual Orientation Straight 08/22/2021 9: 23 AM CDT documented as of this encounter Plan of Treatment Pending Results Name Type Priority Associated Diagnoses Date/Time Neuromuscular Testing ([facility]) Pathology and Cytology Routine Myalgia Chronic arthralgias of knees and hips 10/08/2020 12:00 AM DIRECTOR GLOBAL DEVELOPMENT Scheduled Orders Name Type Priority Associated Diagnoses Orde r Schedule Neuromuscular Testing ([facility]) Pathology and Cytology Routine Myalgia Chronic arthralgias of knees and hips Expected: 10/08/2020, Expires: 10/08/2021 Scheduled Procedures Name Priority Associated Diagnoses Date/Ti me COLONOSCOPY Encounter for screening for colorectal cancer in high risk patient Family history of rectal cancer documented as of this encounter Visit Diagnoses Diagnosis Myalgia- Primary Unspecified myalgia and myositis Chronic arthralgias of knees and hips documented in this encounter Care Teams Social Science Research Assistant Relationship Specialty Start Date End Date Guero Colunga DO PCP - General Internal Medicine 03/22/19 04/18/23 Amber Montesinos RN Assurance Analyst Transplant 11/17/19 Jil Duncan MD Consulting Physician Infectious Diseases 01/10/20 Anita Gillespie MD Medical Oncologist/Commutator Tester Medical Oncology 10/07/20 documented as of this encounter
--- OUTSIDE RECORDS SUMMARY | 2024-10-28 06:18 | XMS_ITS | Encounter Summary ---
Author Organization [facility] Address [address] [place] [address] Phone Care Team Providers Care Manager Corporate Communications Name Role Phone Guero Colunga DO Primary Care Provider [phone] Amber Montesinos RN Unavailable [phone] Jil Duncan MD Unavailable [phone] Anita Gillespie MD Unavailable [phone] Encounter Details Date Type Department Care Team (Late st Contact Info) Description 10/08/2020 Orders Only [facility] Oncology [address] [facility] 7th [place] [address] [place] [id number] Samreen Greene RN Social History Tobacco Use Types Packs/Day Years Used Date Smoking Tobacco: Never Smokeless Tobacco: Current Chew Alcohol Use Standard Drinks/Week Comments Yes 0 (1 standard drink = 0.6 oz pur e alcohol) occassional Sex and Gender Information Value Date Recorded Sex Assigned at Not on file Legal Sex Male 6:28 AM SOCIAL WORK JOB TITLES Gender Identity Not on file Sexual Orientation Straight 08/22/2021 9: 23 AM CDT documented as of this encounter Plan of Treatment Scheduled Procedures Name Priority Associated Diagnoses Date/Ti me COLONOSCOPY Encounter for screening for colorectal cancer in high risk patient Family history of rectal cancer documented as of this encounter Visit Diagnoses Not on filedocumented in this encounter Care Teams Manager Corporate Communications Relationship Specialty Start Date End Date Guero Colunga DO PCP - General Internal Medicine 03/22/19 04/18/23 Amber Montesinos, RN Sales Agent Protective Service Transplant 11/17/19 Jil Duncan MD Consulting Physician Infectious Diseases 01/10/20 Anita Gillespie MD Medical Oncologist/Code Official Medical Oncology 10/07/20 documented as of this encounter
--- OUTSIDE RECORDS SUMMARY | 2024-10-28 06:18 | XMS_ITS | Encounter Summary ---
Author Organization [facility] Address [address] [place] [address] Phone Care Team Providers Care Glove Wrapper Name Role Phone Guero Colunga DO Primary Care Provider [phone] Amber Montesinos RN Unavailable [phone] Jil Duncan MD Unavailable [phone] Anita Gillespie MD Unavailable [phone] Encounter Details Date Type Department Care Team (Late st Contact Info) Description 11/05/2020 Telephone [facility] Oncology [address] [facility] 7th [place] [address] [place] [address] Samreen Greene RN Social History Tobacco Use Types Packs/Day Years Used Date Smoking Tobacco: Never Smokeless Tobacco: Current Chew Alcohol Use Standard Drinks/Week Comments Yes 0 (1 standard drink = 0.6 oz pur e alcohol) occassional Sex and Gender Information Value Date Recorded Sex Assigned at Not on file Legal Sex Male 6:28 AM ASSISTANT DEPARTMENT MANAGER Gender Identity Not on file Sexual Orientation Straight 08/22/2021 9: 23 AM CDT documented as of this encounter Miscellaneous Notes * Telephone Encounter - Samreen Greene RN - 11/05/2020 11:16 AM ASSISTANT DEPARTMENT MANAGER Notified [facility] that we are working on a prior authorization for him to switch to SQ IVIG.We discussed what this would entail and duration. They are in agreement with this plan. We will proceed with IVIG via IV tomorrow as planned. They shared that Beka has also been having blood noses.He shared this with his mom on Wednesday, but had them for a few days prior. He is using a humidifier at night already and will try adding in ocean spray. He has not noticed any petechiae. We will checkhis blood counts tomorrow and further assess. STANT DEPARTMENT MANAGER documented in this encounter Plan of Treatment Scheduled Procedures Name Priority Associated Diagnoses Date/Ti me COLONOSCOPY Encounter for screening for colorectal cancer in high risk patient Family history of rectal cancer documented as of this encounter Visit Diagnoses Not on filedocumented in this encounter Care Teams Glove Wrapper Relationship Specialty Start Date End Date Guero Colunga DO PCP - General Internal Medicine 03/22/19 04/18/23 Amber Montesinos, SHAILESH Stack Yield Engineer Transplant 11/17/19 Jil Duncan MD Consulting Physician Infectious Diseases 01/10/20 Anita Gillespie MD Medical Oncologist/[place]ry[place] Hanger Framer Medical Oncology 10/07/20 documented as of this encounter
--- OUTSIDE RECORDS SUMMARY | 2024-10-28 06:18 | XMS_ITS | Encounter Summary ---
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) Procedures PET/CT FDG Skull to Thigh Anita Gillespie MD Phone: tel: fax: [address] [phone] Referral ID Status Reason Start Date Expiration Date Visits Re quested Visits Authorized [id number] Closed 09/12/2020 10/12/2021 [facility] Reason for Visit * MRI/CAT/PET Scan (Routine) - Closed Specialty Diagnoses / Procedures Referred By Sascha rey Referred To Contact Radiology Diagnoses 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 [address] [place] [address] 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) Discharge Disposition: [...] on file Legal Sex Male 6:28 AM ALCOHOLIC COUNSELOR Gender Identity Not on file Sexual Orientation Straight 08/22/2021 9: 23 AM CDT documented as of this encounter Last Filed Vital Signs Vital Sign Reading Time Taken Comments Blood Pressure - - Pulse - - Temperature - - Respiratory Rate - - Oxygen Saturation - - Inhaled Oxygen Concentration - - Weight 54.4 kg (120 lb) 10/02/2020 11:03 AM ALCOHOLIC COUNSELOR Height 172.7 cm (5' 8 ) 10/02/2020 11:03 AM ALCOHOLIC COUNSELOR Body Mass Index 18.25 10/02/2020 11:03 AM ALCOHOLIC COUNSELOR documented in this encounter Medications at Time [...] Procedure Name Priority Date/Time Associated Diagnosis Comments PET/CT FDG SKULL TO THIGH Schedule Routine, Read Routine (OP Routine) 10/02/2020 12:52 PM ALCOHOLIC COUNSELOR 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) documented in this encounter Results * PET/CT FDG Skull to Thigh (10/02/2020 12:52 PM ALCOHOLIC COUNSELOR) Anatomical Region Laterality Modality N/A Positron Emissio n Tomography (PET) 10/02/2020 2:20 PM ALCOHOLIC COUNSELOR Impressions 10/02/2020 3:21 PM ALCOHOLIC COUNSELOR 1. ??Markedly hypermetabolic lymphadenopathy both above and below the hemidiaphragm is not significantly changed in overall distribution from the prior study dated 10/12/2019. ??While some of the lymph nodes are increased in size and/or FDG avidity, others are stable or slightly improved. ??This could reflect overall stable disease versus progression of a smoldering inflammatory process or lymphoma. 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 2. ??Mildly increased uptake about the knees and shoulders in a periarticular distribution may be seen in the setting of arthritis. 3. ??Interval resolution of the previously seen FDG avid airspace opacity within the right upper lobe. Dictated by: Helga Cruz M.D. The radiology attending physician has personally reviewed this study, and had reviewed and/or edited this written report and agrees with it. Electronically signed by: Maciel Spann M.D. Narrative 10/02/2020 3:21 PM ALCOHOLIC COUNSELOR EXAMINATION: TUMOR FDG-PET/CT IMAGING DATE OF STUDY: ??10/02/2020 SCANNER: [facility] RADIOPHARMACEUTICAL: 11.53 mCi F-18 Fluorodeoxyglucose (FDG) i.v. Injection site: Right antecubital. 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 ??Suspected recurrence with new onset weakness and soreness in arms, shoulders, and knees. ??The study is requested for detection of suspected recurrence. Subsequent treatment strategy. TECHNIQUE: ?? The patient's fasting blood glucose level, measured by glucometer before injection of FDG, was 89 mg/dL. ??MD-Gastroview was not given orally. ??After intravenous administration of FDG, noncontrast CT images were obtained for attenuation correction and for fusion with emission PET images to allow for anatomical localization of PET findings. ??Emission PET images were then obtained. ??The study was interpreted on the [employer] workstation. ??The mean liver SUV (reported for quality assurance qa lab analyst purposes) is 1.5. ?? The total scanned area was skull vertex to the knees. ??Images of the body were obtained starting 83 minutes after injection of tracer. COMPARISON: Comparison is made to a prior PET/CT dated 10/12/2019. FINDINGS: Redemonstrated is highly FDG-avid diffuse lymphadenopathy both above and below the hemidiaphragm with involvement of bilateral cervical, supraclavicular, axillary and subpectoral, mediastinal, mesenteric, retroperitoneal, iliac, and inguinal lymphadenopathy. ??The overall distribution of hypermetabolic adenopathy has not significantly changed; however, some lymph nodes increased in size, while others are stable or improved. Above the hemidiaphragm, bilateral cervical and axillary lymphadenopathy are larger. ??For reference, a left axillary lymph node measuring 3.8 x 2.0 cm (image 140) has max SUV 13.1, previously 2.0 x 1.5 cm with max SUV 11.4. ?? Mediastinal lymphadenopathy is stable. ??For reference a 3.7 x 3.3 cm subcarinal lymph node (image 161) is max SUV 9.5, previously 4.0 x 2.8 cm with max SUV 11.8. A right anterior costophrenic angle lymph node is improved. ??This measures 9 mm (image 187) with max SUV 2.2, previously 2.0 cm with max SUV 9.2. Below the hemidiaphragm, retroperitoneal lymphadenopathy is mildly larger. For reference, a left retroperitoneal lymph node measuring 3.3 x 1.5 cm (image 225) has max SUV 24.8, previously 2.3 x 1.3 cm with max SUV 8.9. Inguinal lymph nodes are stable to slightly improved. ??For reference, a 2.8 x 1.5 cm left inguinal lymph node (image 321) has max SUV 9.9, previously 2.5 x 1.2 cm with max SUV 12.7. ??A right inguinal lymph node measuring 1.7 x 1.2 cm (image 319) has max SUV 6.5, previously 1.6 x 1.3 cm with max SUV 9.3. The previously seen peripheral FDG avid airspace opacity within the right upper lobe has resolved. ?? There is mild diffuse uptake within the knees and shoulders in a periarticular distribution. ??There is mildly increased uptake at the right greater trochanter, which may present an insertional enthesopathy. ??Diffuse uptake within the bone marrow is improved. Additional CT findings: There is mucosal thickening within the maxillary sinuses. ??There are postsurgical changes of orthotopic liver transplantation. ??The gallbladder is surgically absent. Contrast material from the patient's same day body CT is present within the renal collecting systems, ureters, and urinary bladder. Procedure Note Maciel Henry MD - 10/02/2020 EXAMINATION: TUMOR FDG-PET/CT IMAGING DATE OF STUDY: 10/02/2020 SCANNER: [facility] RADIOPHARMACEUTICAL: 11.53 mCi F-18 Fluorodeoxyglucose (FDG) i.v. Injection site: Right antecubital. 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 Suspected recurrence with new onset weakness and soreness in arms, shoulders, and knees. The study is requested for detection of suspected recurrence. Subsequent treatment strategy. TECHNIQUE: The patient's fasting blood glucose level, measured by glucometer before injection of FDG, was 89 mg/dL. MD-Gastroview was not given orally. After intravenous administration of FDG, noncontrast CT images were obtained for attenuation correction and for fusion with emission PET images to allow for anatomical localization of PET findings. Emission PET images were then obtained. The study was interpreted on the [employer] workstation. The mean liver SUV (reported for quality assurance qa lab analyst purposes) is 1.5. The total scanned area was skull vertex to the knees. Images of the body were obtained starting 83 minutes after injection of tracer. COMPARISON: Comparison is made to a prior PET/CT dated 10/12/2019. FINDINGS: Redemonstrated is highly FDG-avid diffuse lymphadenopathy both above and below the hemidiaphragm with involvement of bilateral cervical, supraclavicular, axillary and subpectoral, mediastinal, mesenteric, retroperitoneal, iliac, and inguinal lymphadenopathy. The overall distribution of hypermetabolic adenopathy has not significantly changed; however, some lymph nodes increased in size, while others are stable or improved. Above the hemidiaphragm, bilateral cervical and axillary lymphadenopathy are larger. For reference, a left axillary lymph node measuring 3.8 x 2.0 cm (image 140) has max SUV 13.1, previously 2.0 x 1.5 cm with max SUV 11.4. Mediastinal lymphadenopathy is stable. For reference a 3.7 x 3.3 cm subcarinal lymph node (image 161) is max SUV 9.5, previously 4.0 x 2.8 cm with max SUV 11.8. A right anterior costophrenic angle lymph node is improved. This measures 9 mm (image 187) with max SUV 2.2, previously 2.0 cm with max SUV 9.2. Below the hemidiaphragm, retroperitoneal lymphadenopathy is mildly larger. For reference, a left retroperitoneal lymph node measuring 3.3 x 1.5 cm (image 225) has max SUV 24.8, previously 2.3 x 1.3 cm with max SUV 8.9. Inguinal lymph nodes are stable to slightly improved. For reference, a 2.8 x 1.5 cm left inguinal lymph node (image 321) has max SUV 9.9, previously 2.5 x 1.2 cm with max SUV 12.7. A right inguinal lymph node measuring 1.7 x 1.2 cm (image 319) has max SUV 6.5, previously 1.6 x 1.3 cm with max SUV 9.3. The previously seen peripheral FDG avid airspace opacity within the right upper lobe has resolved. There is mild diffuse uptake within the knees and shoulders in a periarticular distribution. There is mildly increased uptake at the right greater trochanter, which may present an insertional enthesopathy. Diffuse uptake within the bone marrow is improved. Additional CT findings: There is mucosal thickening within the maxillary sinuses. There are postsurgical changes of orthotopic liver transplantation. The gallbladder is surgically absent. Contrast material from the patient's same day body CT is present within the renal collecting systems, ureters, and urinary bladder. IMPRESSION: 1. 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 2. Mildly increased uptake about the knees and shoulders in a periarticular distribution may be seen in the setting of arthritis. 3. Interval resolution of the previously seen FDG avid airspace opacity within the right upper lobe. Dictated by: Helga Cruz M.D. The radiology attending physician has personally reviewed this study, and had reviewed and/or edited this written report and agrees with it. Electronically signed by: Maciel Spann M.D. 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) documented in this encounter Administered Medications Inactive Administered Medications - up to 3 most recent administrations Medication Order MAR Action Action Date Dose Rate Site fludeoxyglucose F-18 (FDG) injection 12.5 millicurie 12.5 millicurie, intravenous, Once in imaging, radiopharmaceutical, Starting on Wed10/02/20 at 1102, For 1 dose Given 10/02/2020 11:12 AM ALCOHOLIC COUNSELOR 11.53 millicuries documented in this encounter Care Teams Bending Shed Worker Relationship Specialty Start Date End Date Guero Colunga DO PCP - General Internal Medicine 03/22/19 04/18/23 Amber Montesinos RN Computer Programming Supervisor Transplant 11/17/19 Jil Duncan MD Consulting Physician Infectious Diseases 01/10/20 documented as of this encounter
--- OUTSIDE RECORDS SUMMARY | 2024-10-28 06:19 | XMS_ITS | Encounter Summary ---
Author Organization [facility] Address [address] [facility] [address] [place] [address] Phone Care Team Providers Care Bench Molder Apprentice Name Role Phone Guero Colunga DO Primary Care Provider [phone] Amber Montesinos RN Unavailable [phone] Jil Duncan MD Unavailable [phone] Encounter Details Date Type Department Care Team (Late st Contact Info) Description 06/24/2020 Telephone [facility] Infectious Diseases [address] [place] [address] [address] [place] [address] Lisandar Auguste NP [address] [facility] [address] [place] [address] Social History Tobacco Use Types Packs/Day Years Used Date Smoking Tobacco: Never Smokeless Tobacco: Never Alcohol Use Standard Drinks/Week Comments Yes 0 (1 standard drink = 0.6 oz pur e alcohol) occassional Sex and Gender Information Value Date Recorded Sex Assigned at Not on file Legal Sex Male 6:28 AM WOODWINDS TEACHER Gender Identity Not on file Sexual Orientation Straight 08/22/2021 9: 23 AM CDT documented as of this encounter Miscellaneous Notes * Telephone Encounter - Lisandra Auguste NP - 06/24/2020 1:44 PM CDT Attempted to call a few times over the past 2 weeks 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 Left voicemails to call ID clinic to evaluate how he is feeling. Will attempt to call againlater this week. documented in this encounter Plan of Treatment Scheduled Procedures Name Priority Associated Diagnoses Date/Ti me COLONOSCOPY Encounter for screening for colorectal cancer in high risk patient Family history of rectal cancer documented as of this encounter Visit Diagnoses Not on filedocumented in this encounter Care Teams Bench Molder Apprentice Relationship Specialty Start Date End Date Guero Colunga DO PCP - General Internal Medicine 03/22/19 04/18/23 Amber Montesinos, RN Spray Maker Transplant 11/17/19 Jil Duncan MD Consulting Physician Infectious Diseases 01/10/20 documented as of this encounter
--- OUTSIDE RECORDS SUMMARY | 2024-10-28 06:19 | XMS_ITS | Encounter Summary ---
Author Organization [facility] Healthcare Address [address] [place] [address] Care Team Providers Care Tool Design Draftsperson Name Role Phone Guero Colunga Primary Care Provider [phone] Amber Montesinos RN Unavailable [phone] Jil Duncan MD Unavailable [phone] Encounter Details Date Type Department Care Team (Late st Contact Info) Description 06/05/2020 Orders Only [facility] Transplant Liver [address] [facility] [phone] [place] [address] Amber Montesinos RN History of liver transplant (CMS/HCC) (Primary Dx); Cytomegalovirus infection, unspecified cytomegaloviral infection type (CMS/HCC) Social History Tobacco Use Types Packs/Day Years Used Date Smoking Tobacco: Never Smokeless Tobacco: Never Alcohol Use Standard Drinks/Week Comments Yes 0 (1 standard drink = 0.6 oz pur e alcohol) occassional Sex and Gender Information Value Date Recorded Sex Assigned at Not on file Legal Sex Male 6:28 AM BOX PERSON Gender Identity Not on file Sexual Orientation Straight 08/22/2021 9: 23 AM CDT documented as of this encounter Plan of Treatment Scheduled Procedures Name Priority Associated Diagnoses Date/Ti me COLONOSCOPY Encounter for screening for colorectal cancer in high risk patient Family history of rectal cancer documented as of this encounter Results * (ABNORMAL) Cytomegalovirus (CMV) DNA PCR, quantitative Blood (06/12/2020 7:50 AM CDT) CMV DNA Detected( A) [facility] Comment: Interpretive Data: The quantifiable range of this assay is 137 IUnits/mL to 9,100,000 IUnits/mL (2.14 log IUnits/mL to 6.96 log IUnits/mL). Testing was performed by the [employer] AmpliPrep/NIA TaqMan CMV Test ([facility] Testing performed at [facility] Current interpretive data was last revised on 17. CMV DNA IU/mL 2,869 IUnits/mL [facility] CMV DNA log IU/mL 3.46 log IUnits/mL [facility] Blood specimen (specimen) 06/12/2020 7:50 AM CDT 06/12/2020 12:33 PM CDT Narrative [facility] - 06/13/2020 10:17 AM CDT *Please draw along with Dr. 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
--- OUTSIDE RECORDS SUMMARY | 2024-10-28 06:19 | XMS_ITS | Encounter Summary ---
Author Organization [facility] Healthcare Address [address] [place] [address] Care Team Providers Care District Manager Primary Care Sales Name Role Phone Guero Colunga Primary Care Provider [phone] Amber Montesinos RN Unavailable [phone] Jil Duncan MD Unavailable [phone] Encounter Details Date Type Department Care Team (Late st Contact Info) Description 05/27/2020 Telephone [facility] Transplant Liver [address] [facility] [phone] [place] [address] Jacquelyn Welsh Social History Tobacco Use Types Packs/Day Years Used Date Smoking Tobacco: Never Smokeless Tobacco: Never Alcohol Use Standard Drinks/Week Comments Yes 0 (1 standard drink = 0.6 oz pur e alcohol) occassional Sex and Gender Information Value Date Recorded Sex Assigned at Not on file Legal Sex Male 6:28 AM DINKEY OPERATOR Gender Identity Not on file Sexual Orientation Straight 08/22/2021 9: 23 AM CDT documented as of this encounter Miscellaneous Notes * Telephone Encounter - Amber Vargas RN - 05/27/2020 4:18 PM CDT Refill sent with notes to please substitute generic if needed. * Telephone Encounter - Jacquelyn Welsh - 05/27/2020 2:32 PM CDT VM from [facility], [place] is out of stock and they don't know when it will be back in stock. Can theyget a new script for generic brand? Call back [phone] documented in this encounter Plan of Treatment Scheduled Procedures Name Priority Associated Diagnoses Date/Ti me COLONOSCOPY Encounter for screening for colorectal cancer in high risk patient Family history of rectal cancer documented as of this encounter Visit Diagnoses Not on filedocumented in this encounter Care Teams District Manager Primary Care Sales Relationship Specialty Start Date End Date Guero Colunga DO PCP - General Internal Medicine 03/22/19 04/18/23 Amber Montesinos RN Brick Yard Hand Transplant 11/17/19 Jil Duncan MD Consulting Physician Infectious Diseases 01/10/20 documented as of this encounter
--- OUTSIDE RECORDS SUMMARY | 2024-10-28 06:19 | XMS_ITS | Encounter Summary ---
Author Organization [facility] Address [address] [place] [address] Phone Care Team Providers Care Pool Servicer Name Role Phone Guero Colunga DO Primary Care Provider [phone] Amber Montesinos RN Unavailable [phone] Jil Duncan MD Unavailable [phone] Encounter Details Date Type Department Care Team (Late st Contact Info) Description 09/16/2020 11:30 AM FINANCIAL ACCOUNTING ANALYST Lab [facility] 7th [place] [address] [place] [address] Weakness; Chronic arthralgias of knees and hips Social History Tobacco Use Types Packs/Day Years Used Date Smoking Tobacco: Never Smokeless Tobacco: Never Alcohol Use Standard Drinks/Week Comments Yes 0 (1 standard drink = 0.6 oz pur e alcohol) occassional Sex and Gender Information Value Date Recorded Sex Assigned at Not on file Legal Sex Male 6:28 AM FINANCIAL ACCOUNTING ANALYST Gender Identity Not on file Sexual Orientation Straight 08/22/2021 9: 23 AM CDT documented as of this encounter Plan of Treatment Scheduled Procedures Name Priority Associated Diagnoses Date/Ti me COLONOSCOPY Encounter for screening for colorectal cancer in high risk patient Family history of rectal cancer documented as of this encounter Procedures Procedure Name Priority Date/Time Associated Diagnosis Comments KEISHA QUALITATIVE WITH REFLEX TO KEISHA QUANTITATIVE Routine 09/16/2020 11:37 AM FINANCIAL ACCOUNTING ANALYST Weakness Chronic arthralgias of knees and hips IMMUNOGLOBULIN PROFILE Routine 0 11:37 AM FINANCIAL ACCOUNTING ANALYST DIFFERENTIAL AUTO Routine 09/16/2020 11: 37 AM FINANCIAL ACCOUNTING ANALYST Weakness Chronic arthralgias of knees and hips GEOVANNI ANTIBODY EVALUATION WITH REFLEX Routine 09/16/2020 11:37 AM FINANCIAL ACCOUNTING ANALYST Weakness Chronic arthralgias of knees and hips THYROID FUNCTION CASCADE Routine 09/16/2020 11:37 AM FINANCIAL ACCOUNTING ANALYST Weakness Chronic arthralgias of knees and hips CBC WITH AUTO DIFFERENTIAL Routine 09/16/2020 11:37 AM FINANCIAL ACCOUNTING ANALYST Weakness Chronic arthralgias of knees and hips ALDOLASE Routine 09/16/2020 11:37 AM FINANCIAL ACCOUNTING ANALYST Weakness Chronic arthralgias of knees and hips ERYTHROCYTE SEDIMENTATION RATE Routine 09/16/2020 11:37 AM FINANCIAL ACCOUNTING ANALYST Weakness Chronic arthralgias of knees and hips RHEUMATOID FACTOR Routine 09/16/2020 11: 37 AM FINANCIAL ACCOUNTING ANALYST Weakness Chronic arthralgias of knees and hips CRP (ACUTE PHASE) Routine 09/16/2020 11: 37 AM FINANCIAL ACCOUNTING ANALYST Weakness Chronic arthralgias of knees and hips T4, FREE Routine 09/16/2020 11:37 AM FINANCIAL ACCOUNTING ANALYST Weakness Chronic arthralgias of knees and hips CREATINE KINASE (CK), TOTAL Routine 09/16/2020 11:37 AM FINANCIAL ACCOUNTING ANALYST Weakness Chronic arthralgias of knees and hips COMPREHENSIVE METABOLIC PANEL Routine 09/16/2020 11:37 AM FINANCIAL ACCOUNTING ANALYST Weakness Chronic arthralgias of knees and hips documented in this encounter Results * (ABNORMAL) Immunoglobulin profile (09/16/2020 11:37 AM FINANCIAL ACCOUNTING ANALYST) Immunoglobulin G <300.0(L) 700.0 - 1,600.0 mg/dL [facility] Immunoglobulin A <50.0(L) 70.0 - 400.0 mg/dL [facility] Immunoglobulin M <25.0(L) 40.0 - 230.0 mg/dL [facility] Blood specimen (specimen) 09/16/2020 11:37 AM FINANCIAL ACCOUNTING ANALYST 09/16/2020 12:01 PM FINANCIAL ACCOUNTING ANALYST us Anita Gillespie MD LAB BLOOD ORDERABLES Final Result Performing Organization Address [facility] de Phone Number [facility] Department [place] [address] * T4, free (09/16/2020 11:37 AM FINANCIAL ACCOUNTING ANALYST) [facility] Free T4 1.40 0.90 - 1.70 ng/dL [facility] Blood specimen (specimen) 09/16/2020 11:37 AM FINANCIAL ACCOUNTING ANALYST 09/16/2020 12:01 PM FINANCIAL ACCOUNTING ANALYST Narrative [facility] - 09/16/2020 1:33 PM FINANCIAL ACCOUNTING ANALYST This test was reflexed from a TSH result. us Hans Mendes MD PhD LAB BLOOD ORDERABL ES Final Result Performing Organization Address [facility] de Phone Number [facility] Department [place] [address] * (ABNORMAL) Differential, auto (09/16/2020 11:37 AM FINANCIAL ACCOUNTING ANALYST) Neutrophil abs 11.4(H) 1.8 - 6.6 K/cumm [facility] Comment:Testing performed by : [facility], [facility] [phone] Lymphocyte abs 4.2(H) 1.2 - 3.3 K/cumm [facility] Comment:Testing performed by : [facility], [address] [place] [phone] Monocyte abs 2.3(H) 0.2 - 1.2 K/cumm [facility] Comment:Testing performed by : [facility], [address] [place] [phone] Eosinophil abs 1.3(H) 0.0 - 0.5 K/cumm [facility] Comment:Testing performed by : [facility], [address] [place] [phone] Basophil abs 0.1 0.0 - 0.2 K/cumm [facility] Comment:Testing performed by : [facility], [address] [place] [phone] Neutrophil pct 59.2 % [facility] Comment: Interpretive Data Percent cell count reference ranges are not reported, since discordance with absolute values may lead to misinterpretation of CBC data. Current Interpretive Data was last revised on 2018. Testing performed by: [facility], [address] [place] [phone] Lymphocyte pct 21.9 % [facility] Comment: Interpretive Data Percent cell count reference ranges are not reported, since discordance with absolute values may lead to misinterpretation of CBC data. Current Interpretive Data was last revised on 2018. Testing performed by: [facility], [address] [place] [phone] Monocyte pct 11.8 % [facility] Comment:Testing performed by : [facility], [address] [place] [phone] Eosinophil pct 6.8 % [facility] Comment:Testing performed by : [facility], [address] [place] [phone] Basophil pct 0.3 % [facility] Comment:Testing performed by : [facility], [address] [place] [phone] Blood specimen (specimen) 09/16/2020 11:37 AM FINANCIAL ACCOUNTING ANALYST 09/16/2020 11:39 AM FINANCIAL ACCOUNTING ANALYST us Hans Mendes MD PhD LAB BLOOD ORDERABL ES Final Result [facility] Department [place] [address] * (ABNORMAL) Aldolase (09/16/2020 11:37 AM FINANCIAL ACCOUNTING ANALYST) Aldolase 11.8(H) 0.1 - 8.0 Units/L [facility] Blood specimen (specimen) 09/16/2020 11:37 AM FINANCIAL ACCOUNTING ANALYST 09/16/2020 11:57 AM FINANCIAL ACCOUNTING ANALYST Hans Mendes MD PhD LAB BLOOD ORDERABL ES Final Result Performing Organization Address [facility] Phone Number [facility] [place] [address] * KEISHA qualitative with reflex to KEISHA Quantitative (09/16/2020 11:37 AM FINANCIAL ACCOUNTING ANALYST) Pathologist [facility] KEISHA Negative [facility] Comment: Interpretive Data Normal range for [...] last revised on 2020. Blood specimen (specimen) 09/16/2020 11:37 AM FINANCIAL ACCOUNTING ANALYST 09/16/2020 11:55 AM FINANCIAL ACCOUNTING ANALYST Hans Mendes MD PhD LAB BLOOD ORDERABL ES Final Result Performing Organization Address [facility] de Phone Number [facility] [place] [address] * GEOVANNI Antibody Evaluation with Reflex (09/16/2020 11:37 AM FINANCIAL ACCOUNTING ANALYST) Pathologist [facility] GEOVANNI ab Negative Negative [facility] Comment: Interpretive Data Positive Screens will be reflexed to specific testing for the following antigens: Joy-1 Ab, RESOURCE DEVELOPMENT MANAGER Ab, Scl-70 Ab, Zamora Ab, SS-A/Ro Ab, and SS-B/La Ab. Further testing for dsDNA, Centromere, or Ribosomal P antibodies is suggested in patient with a positive screen and negative specific antibodies. Current interpretive data was last revised on 17. Blood specimen (specimen) 09/16/2020 11:37 AM FINANCIAL ACCOUNTING ANALYST 09/16/2020 11:55 AM FINANCIAL ACCOUNTING ANALYST Hans Mendes MD PhD LAB BLOOD ORDERABL ES Final Result Performing Organization Address [facility] de Phone Number [facility] Department [place] [address] * Rheumatoid factor (09/16/2020 11:37 AM FINANCIAL ACCOUNTING ANALYST) [facility] Rheumatoid factor, quant <10.0 0.1 - 15.0 IUnits/mL [facility] Blood specimen (specimen) 09/16/2020 11:37 AM FINANCIAL ACCOUNTING ANALYST 09/16/2020 11:57 AM FINANCIAL ACCOUNTING ANALYST Hans Mendes MD PhD LAB BLOOD ORDERABL ES Final Result Performing Organization Address [facility] de Phone Number [facility] [place] [address] * (ABNORMAL) Comprehensive metabolic panel (09/16/2020 11:37 AM FINANCIAL ACCOUNTING ANALYST) [facility] Sodium 139 135 - 145 mmol/L [facility] Comment:Testing performed by : [facility], [address] [place] [phone] Potassium, pl 4.5 3.3 - 4.9 mmol/L [facility] Comment:Testing performed by : [facility], [address] [place] [phone] Chloride 104 97 - 110 mmol/L [facility] Comment:Testing performed by : [facility], [address] [place] [phone] CO2 26 22 - 32 mmol/L [facility] Comment:Testing performed by : [facility], [address] [place] [phone] Anion gap 9 2 - 15 mmol/L [facility] Comment:Testing performed by : [facility], [address] [place] [phone] BUN 11 8 - 25 mg/dL [facility] Comment:Testing performed by : [facility], [address] [place] [phone] Creatinine 0.74(L) 0.80 - 1.30 mg/dL [facility] Comment:Testing performed by : [facility], [address] [place] [phone] Glucose 98 70 - 199 mg/dL [facility] [...] was last revised 2017. Testing performed by: [facility], [address] [place] [phone] Calcium 9.7 8.5 - 10.3 mg/dL [facility] Comment:Testing performed by : [address] [phone] Bilirubin, total 0.5 0.1 - 1.2 mg/dL [facility] Comment:Testing performed by : [address] [phone] Protein, pl 6.6 6.5 - 8.5 g/dL [facility] Comment:Testing performed by : [facility], [address] [place] [phone] Albumin 4.6 3.5 - 5.0 g/dL [facility] Comment:Testing performed by : [address] [phone] Alk phos 583(H) 40 - 130 Units/L [facility] Comment:Testing performed by : [address] [phone] ALT 66(H) 7 - 55 Units/L [facility] Comment:Testing performed by : [facility], [address] [place] [phone] AST 48 10 - 50 Units/L [facility] Comment:Testing performed by : [facility], [address] [place] [phone] Blood specimen (specimen) 09/16/2020 11:37 AM FINANCIAL ACCOUNTING ANALYST 09/16/2020 11:39 AM FINANCIAL ACCOUNTING ANALYST us Hans Mendes MD PhD LAB BLOOD ORDERABL ES Final Result [facility] Department [place] [address] * (ABNORMAL) CBC with auto differential (09/16/2020 11:37 AM FINANCIAL ACCOUNTING ANALYST) WBC 19.2(H) 3.8 - 9.8 K/cumm [facility] Comment:Testing performed by : [facility], [address] [place] [phone] Hgb 14.6 13.8 - 17.2 g/dL [facility] Comment:Testing performed by : [facility], [address] [place] [phone] Hct 42.7 40.7 - 50.3 % [facility] Comment:Testing performed by : [facility], [address] [place] [phone] Plt 401 140 - 440 K/cumm [facility] Comment:Testing performed by : [facility], [address] [place] [phone] MPV 7.6 6.8 - 10.4 fL [facility] Comment:Testing performed by : [facility], [address] [place] [phone] RBC 4.56 4.50 - 5.70 M/cumm [facility] Comment:Testing performed by : [address] [phone] MCV 93.8 80.0 - 97.6 fL [facility] Comment:Testing performed by : [address] [phone] MCH 32.1 26.7 - 33.7 pg [facility] Comment:Testing performed by : [facility], [address] [place] [phone] MCHC 34.2 32.7 - 35.5 g/dL [facility] Comment:Testing performed by : [facility], [address] [place] [phone] RDW CV 14.8(H) 11.8 - 14.6 % [facility] Comment:Testing performed by : [facility], [address] [place] [phone] NRBC abs 0.04(H) 0.00 - 0.01 K/cumm [facility] Comment:Testing performed by : [facility], [address] [place] [phone] Blood specimen (specimen) 09/16/2020 11:37 AM FINANCIAL ACCOUNTING ANALYST 09/16/2020 11:39 AM FINANCIAL ACCOUNTING ANALYST Hans Mendes MD PhD LAB BLOOD ORDERABL ES Final Result Performing Organization Address [facility] Co de Phone Number [facility] Department of [place] [phone] * Erythrocyte sedimentation rate (09/16/2020 11:37 AM FINANCIAL ACCOUNTING ANALYST) Pathologist [facility] Erythrocyte sedimentation rate 1 1 - 15 mm/hr [facility] Blood specimen (specimen) 09/16/2020 11:37 AM FINANCIAL ACCOUNTING ANALYST 09/16/2020 11:55 AM FINANCIAL ACCOUNTING ANALYST Hans Mendes MD PhD LAB BLOOD ORDERABL ES Final Result Performing Organization Address [facility] de Phone Number [facility] [place] [address] * (ABNORMAL) CRP (acute phase) (09/16/2020 11:37 AM FINANCIAL ACCOUNTING ANALYST) Pathologist [facility] CRP 15.7(H) <=10.0 mg/L [facility] Blood specimen (specimen) 09/16/2020 11:37 AM FINANCIAL ACCOUNTING ANALYST 09/16/2020 11:57 AM FINANCIAL ACCOUNTING ANALYST us Hans Mendes MD PhD LAB BLOOD ORDERABL ES Final Result Performing Organization Address [facility] [place] [address] * (ABNORMAL) TSH reflex to free T4 (09/16/2020 11:37 AM FINANCIAL ACCOUNTING ANALYST) TSH 5.42(H) 0.30 - 4.20 mcIUnit/mL [facility] Blood specimen (specimen) 09/16/2020 11:37 AM FINANCIAL ACCOUNTING ANALYST 09/16/2020 11:57 AM FINANCIAL ACCOUNTING ANALYST us Hans Mendes MD PhD LAB BLOOD ORDERABL ES Final Result Performing Organization Address [facility] [place] [address] * Creatine kinase (CK), total (09/16/2020 11:37 AM FINANCIAL ACCOUNTING ANALYST) CK 43 40 - 300 Units/L [facility] Blood specimen (specimen) 09/16/2020 11:37 AM FINANCIAL ACCOUNTING ANALYST 09/16/2020 11:57 AM FINANCIAL ACCOUNTING ANALYST us Hans Mendes MD PhD LAB BLOOD ORDERABL ES Final Result Performing Organization Address [facility] [place] [address] documented in this encounter Visit Diagnoses Diagnosis Weakness Other malaise and fatigue Chronic arthralgias of knees and hips documented in this encounter Care Teams Pool Servicer Relationship Specialty Start Date End Date Guero Colunga DO PCP - General Internal Medicine 03/22/19 04/18/23 Amber Montesinos RN Hospital Chief Financial Officer Transplant 11/17/19 Jil Duncan MD Consulting Physician Infectious Diseases 01/10/20 documented as of this encounter
--- OUTSIDE RECORDS SUMMARY | 2024-10-28 06:19 | XMS_ITS | Encounter Summary ---
Author Hub Email Address Preferred Language Italian Marital Status Single Alevism Affiliation Unknown Race White Ethnic Group Not or Lati no Author Organization [facility] Address [address] [place] [address] Phone Care Team Providers Care Ordnance Handler Name Role Phone Guero Colunga DO Primary Care Provider [phone] Amber Montesinos RN Unavailable [phone] Jil Duncan MD Unavailable [phone] Anita Gillespie MD Unavailable [phone] Reason for Visit * Reason Comments New Patient * Consultation (Routine) - Closed Specialty Diagnoses / Procedures Referred By Contac t Referred To Contact Neurology Diagnoses Weakness Anita Gillespie MD Phone: tel: fax: [facility] (All Locations) Referral ID Status Reason Start Date Expiration Date V isits Requested Visits Authorized [id number] Closed Specialty Services Required 09/13/2020 10/13/2021 1 1 Encounter Details Date Type Department Care Team (Late st Contact Info) Description 09/16/2020 10:00 AM TRAPEZE ARTIST Office Visit [facility] Neuro Muscle [address] [facility] 6th [place] [address] [place] [id number] Hans Mendes MD PhD [address] [place] [address] Chronic arthralgias of knees and hips (Primary Dx); Weakness Social History Tobacco Use Types Packs/Day Years Used Date Smoking Tobacco: Never Smokeless Tobacco: Never Alcohol Use Standard Drinks/Week Comments Yes 0 (1 standard drink = 0.6 oz pur e alcohol) occassional Sex and Gender Information Value Date Recorded Sex Assigned at Not on file Legal Sex Male 6:28 AM TRAPEZE ARTIST Gender Identity Not on file Sexual Orientation Straight 08/22/2021 9: 23 AM CDT documented as of this encounter Last Filed Vital Signs Vital Sign Reading Time Taken Comments Blood Pressure 113/73 09/16/2020 9:57 AM TRAPEZE ARTIST Pulse 75 09/16/2020 9:57 AM TRAPEZE ARTIST Temperature 36.6 ??C (97.9 ??F) 09/16/2020 9:57 AM CS T Respiratory Rate - - Oxygen Saturation - - Inhaled Oxygen Concentration - - Weight 56.1 kg (123 lb 9.6 oz) 09/16/2020 9:57 A M TRAPEZE ARTIST Height 172.7 cm (5' 8 ) 09/16/2020 9:57 AM TRAPEZE ARTIST Body Mass Index 18.79 09/16/2020 9:57 AM TRAPEZE ARTIST documented in this encounter Patient Instructions * Patient Instructions* Jason Topete MD - 09/16/2020 10:00 AM TRAPEZE ARTIST You were seen in neuromuscular clinic for evaluation of your pain and weakness. On the basis of your history and exam, your presentation is most consistent with inflammation of your joints causing pain and limiting movement. It is possible however that there is inflammation of your muscles as well.We will start with checking some labs that look at inflammation levels and particular inflammatory markers. EZE ARTIST documented in this encounter Progress Notes * Jason Topete MD - 09/16/2020 10:00 AM CST [facility] [address] [place] [id number] - Home Page: [email or web address] Beka Nichols 1995 JUSTEN: 09/16/2020 Mr. Beka Nichols is a 25-year-old man with a history of liver transplantation, ITP, and posttransplant lymphoproliferative disorder who presents with several months of weakness and pain. The patient reports that over the last three months or so, he has had onset of pain and weakness in multiple areas of his body. He first noticed the pain in his left knee. He awoke one morning and had difficulty moving his left lower limb. In particular he had trouble lifting his lower limb at the hip and extending his leg at the knee. He had severe pain at the sides of his knee joint as well as deep within his knee. His pain waxed and waned, and after a few days he had onset of pain in his right knee with similar weakness in his right leg. A few days later, he developed pain in both of his hips and felt weak and had difficulty walking. He describes the quality of the pain as sharp and like a pulled muscle. He had tenderness to touch at the sides of his knees. He is unsure if there were tender points at his hips. His symptoms continued in his knees and hips with varying severity at each joint. He then developed weakness in his bilateral shoulders. He found that he had difficulty raising his arm above his head. He reports feeling that his shoulder muscles were tender to touch as well as having pain deeper within his shoulder. A little while after onset of shoulder pain, he began to experience hand weakness with weak phlebotomy specialist in his left hand. He had difficulty opening bottles. He had pain in his left medial palm and no forearm pain. He reports that his right hand has also felt a little weak. At the time of the interview, he states that his pain is currently worst in his right shoulder. Hisleft shoulder and bilateral knees are also hurting. He describes the pain that he feels in his joints as sharp and like electric shocks. The pain stays at his joints and does not radiate. He continues to have pins and needle sensation in digits 3 through 5 of his left hand and in his medial palm. 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 The initial transplant failed due to hepatic artery insufficiency and he underwent a second transplant which was successful. 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 In 2015, he developed pulmonary nodules and in March 2017 underwent biopsy which showed atypical lymphoid infiltrate. Subsequent PET-CT showed diffuse lymphadenopathy and biopsy showed follicular hyperplasia with EBV positive cells. 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 He underwent 1 round of R-CHOP in August 2017, 5 rounds of EPOCH-R 3512-0859, intrathecal methotrexate (one dose complicated by intracranial hypotension). Following this treatment he has continued to have diffuse lymphadenopathy with recent biopsy showing follicular hyperplasia. Since November 2019 patient has been treated and monitored for CMV viremia. He had detectable CMV DNA in November 2019 and his valganciclovir with increased. Over November and December his CMV viral levels continued to increase despite treatment. He completed a course of IV ganciclovir. MEDICATIONS: As cited and reviewed in the Epic medical record. ALLERGIES.: As cited and reviewed in the [facility] medical record. SOCIAL HISTORY: The patient uses 1 can of tobacco dip per week. He has 5-6 alcoholic beverages a week. He denies any illicit drug use. 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 FAMILY HISTORY: The patient's mother has a history of rectal cancer and his sister has type 2 diabetes mellitus. Nofamily history of neurological disorders. REVIEW OF SYSTEMS: The patient reports a rash over his face and head which he attributes to his tacrolimus. It has notchanged recently. All other symptoms negative except as per HPI. PHYSICAL EXAMINATION: VITAL SIGNS: BP 113/73 (BP Location: Left arm, Patient Position: Sitting) Pulse 75 Temp 36.6 ??C (97.9 ??F) Ht 172.7 cm (5' 8 ) Wt 56.1 kg (123 lb 9.6 oz) BMI 18.79 kg/m?? CARDIOVASCULAR: Regular rate and rhythm. RESPIRATORY: Clear to auscultation bilaterally. EXTREMITIES: Erythematous plaques with scaling on patient's scalp, cheeks, and between eyebrows. His active ROM of shoulder flexion is 90 degrees on left and about 70 degrees on right. He has a positive empty can sign with his right shoulder. There is also pain with active internal and external rotation of his right shoulder. Pain is also present with passive ROM of his right shoulder. He has tenderness to palpation over the acromion bilaterally. There is some tenderness to palpation over bilateral deltoids. There is also tenderness to palpation at the medial and lateral joint lines of his knees bilaterally. There is no tenderness to palpation over the patient's quadriceps. None of the joints are erythematous, warm or swollen. NEUROLOGIC EXAMINATION: MENTAL STATUS: The patient is alert and oriented to person, place, and date. He is able to give a detailed history including recent and distant events. CRANIAL NERVES: Visual bai are full to confrontation. Pupils are equal, round and reactive to light. Extraocular movements are intact without nystagmus. Sensation in V1 through V3 is intact to light touch bilaterally. His face is symmetric with strong eye closure and lip closure. Hearing is intact to conversation. Palate elevation is symmetric. Shoulder shrug is limited by pain but is strong and symmetric. Tongue is midline and strong and speech is clear. MOTOR: Strength testing was markedly limited by pain in the shoulders and knees bilaterally complicating interpretation of proximal muscle strength. Examination showed the following values by MRC anddynamometry: Right Left Deltoid 5/5 with brief effort 2/2 pain 5/5 with brief effort 2/2 pain Biceps 5/5 5/5 Triceps 5/5 5/5 WE 5/5 5/5 FDI 10 11 APB 8 7.5 Hip Flexion 5/5 with brief effort 2/2 pain 5/5 with brief effort 2/2 pain Quadriceps 5/5 5/5 Hamstrings 5/5 5/5 Ankle Dorsiflexion 5/5 5/5 Ankle Plantar Flexion 5/5 5/5 Tone was normal throughout though guarding produced some increased resistance to movement of RUE. Finger taps and toe taps were normal and symmetric. SENSORY: Tinel's is negative at Guyon's canal, the carpal tunnel and the medial elbow on the left. Vibration testing showed the following by the white scale on the [email or web address] tuning fork: Right Left Fingers 8 8 Knees 7 8 Toes 7 7 COORDINATION: Kwbveb-cbeb-evzhsg and fpeb-ywab-wggr were without ataxia or dysmetria bilaterally REFLEXES: Right Left Biceps 2+ 2+, brisker than right Triceps 2+ 2+ Patella 2+ 3+, crossed adductor present Ankles 2+ 2+ GAIT: The patient is able to rise from a seated position without use of his arms and has a normal station. He takes short steps with an antalgic gait. He is able to walk on toes and heels as well as tandem 5-6 steps. DIAGNOSTIC DATA: AST 48 ALT 66 Alk phos 583 Aldolase 11.8 CK 43 CRP 15.7, ESR 1 KEISHA negative Rheumatoid factor negative IMPRESSION AND PLAN: The patient is a 25-year-old man with a complex medical history including two liver transplants, ITP, and posttransplant lymphoproliferative disorder who presents with several months of arthralgias and activity intolerance. From the patient's history, he has had several months of migrating arthralgias affecting first his knees and later his hips and shoulders. Though the severity at each of theselocations has waxed and waned, once an area has been affected it has continued to be painful at times. The patient also reports some sensory changes in the medial aspect of his left hand. He has no clear objective evidence of motor deficits that are out of proportion to his pain. As for examination, the most prominent feature of the patient's exam is multifocal joint pain. He has pain with active and passive range of motion of his knees and shoulders as well as pain at his acromion processes and bilateral knee joint lines. This pain becomes severe on direct testing of his muscle strength complicating interpretation of his strength. However, with his best effort there doesnot appear to be any clear weakness on his examination. He has some asymmetry of his reflexes with reflexes being slightly up on the left at the elbow and knee. The asymmetry to his reflexes could lavelle subtle UMN sign but there are no other accompanying features of pyramidal disease on the left side. Labs are notable for a elevated aldolase and CRP with normal creatine kinase and ESR. KEISHA has returned negative as well as rheumatoid factor. From initial evaluation, the patient's presentation is most consistent with a polyarthralgia. However, it is difficult to rule out a subclinical myopathy or myositis on the basis of examination aloneand such a process could be concurrent with arthralgias. As for patient's left hand sensory changes, the symptoms raise the possibility of an ulnar neuropathy, possibly an entrapment related to his ar thropathy. Such lesions can be seen due to compression from inflammation of the elbow joint and thus would be consistent with rest of presentation. Given the patient's past medical history of PTLD there is high concern that this presentation couldbe a paraneoplastic process or related to prior treatment which he received for the PTLD. Dermatomyositis with Joy-1 and anti-t-RNA synthetase antibodies can produce a syndrome with prominent pain andisolated elevated aldolase, typically with IMPP pathology on biopsy. Additionally, dermatomyositis has been associated with lymphoma. His CMV viremia also raises concern for a chronic infectious connective tissue disease, such as chronic enterovirus-associated myovasculopathy, a condition that alsoresults in IMPP pathology with concurrent vascular pathology and has been reported in patients withprior exposure to rituximab. Checking quantitative Igs will help assess his risk for this potentialcomplication of his prior therapy. Rheumatological conditions such as rheumatoid arthritis or lupusare also possible. - CBC, CMP, TSH - aldolase and CK - ESR and CRP - KEISHA, GEOVANNI, RF, CCP - quantitative Igs - serum enterovirus PCR - Neuromuscular myopathy 2 autoantibody panel - NCS/EMG with low threshold to proceed with muscle biopsy given isolated elevated aldolase (i.e., to look for IMPP) Jason Topete M.D. PGY-2 Neurology Cosigned by Hans Mendes MD PhD at 10/22/2020 4:48 PM TRAPEZE ARTIST EZE ARTIST EZE ARTIST EZE ARTIST EZE ARTIST Associated attestation - Hans Mendes MD PhD - 10/22/2020 4:48 PM TRAPEZE ARTIST I have seen and examined the patient. I agree with the findings and plan of care as documented in the resident/fellow's note. I have made edits and additions to the resident's note and agree with theplan of care as documented. documented in this encounter Plan of Treatment Scheduled Procedures Name Priority Associated Diagnoses Date/Ti mt COLONOSCOPY Encounter for screening for colorectal cancer in high risk patient Family history of rectal cancer documented as of this encounter Results * Enterovirus PCR Blood (10/02/2020 7:08 AM TRAPEZE ARTIST) Enterovirus RNA [facility] Blood specimen (specimen) 10/02/2020 7:08 AM TRAPEZE ARTIST 10/04/2020 4:20 AM TRAPEZE ARTIST Hans Mendes MD PhD LAB MICROBIOLOGY - GENERAL ORDERABLES Final Result Performing Organization Address [facility] de Phone Number [facility] Department [place] [address] * (ABNORMAL) TSH reflex to free T4 (09/16/2020 11:37 AM TRAPEZE ARTIST) TSH 5.42(H) 0.30 - 4.20 mcIUnit/mL [facility] Blood specimen (specimen) 09/16/2020 11:37 AM TRAPEZE ARTIST 09/16/2020 11:57 AM TRAPEZE ARTIST us Hans Mendes MD PhD LAB BLOOD ORDERABL ES Final Result Performing Organization Address [facility] Phone Number [facility] Department [place] [address] * (ABNORMAL) CRP (acute phase) (09/16/2020 11:37 AM TRAPEZE ARTIST) CRP 15.7(H) <=10.0 mg/L [facility] Blood specimen (specimen) 09/16/2020 11:37 AM TRAPEZE ARTIST 09/16/2020 11:57 AM TRAPEZE ARTIST us Hans Mendes MD PhD LAB BLOOD ORDERABL ES Final Result Performing Organization Address [facility] de Phone Number [facility] [place] [address] * Erythrocyte sedimentation rate (09/16/2020 11:37 AM TRAPEZE ARTIST) Erythrocyte sedimentation rate 1 1 - 15 mm/hr [facility] Blood specimen (specimen) 09/16/2020 11:37 AM TRAPEZE ARTIST 09/16/2020 11:55 AM TRAPEZE ARTIST Hans Mendes MD PhD LAB BLOOD ORDERABL ES Final Result [facility] Department [place] [address] * (ABNORMAL) CBC with auto differential (09/16/2020 11:37 AM TRAPEZE ARTIST) WBC 19.2(H) 3.8 - 9.8 K/cumm [facility] Comment:Testing performed by : [facility], [address] [place] [phone] Hgb 14.6 13.8 - 17.2 g/dL [facility] Comment:Testing performed by : [address] [address] Hct 42.7 40.7 - 50.3 % [facility] Comment:Testing performed by : [address] [address] Plt 401 140 - 440 K/cumm [facility] Comment:Testing performed by : [facility], [address] [place] [phone] MPV 7.6 6.8 - 10.4 fL [facility] Comment:Testing performed by : [address] [phone] RBC 4.56 4.50 - 5.70 M/cumm [facility] Comment:Testing performed by : [address] [phone] MCV 93.8 80.0 - 97.6 fL [facility] Comment:Testing performed by : [facility], [address] [place] [phone] MCH 32.1 26.7 - 33.7 pg [facility] Comment:Testing performed by : [address] [phone] MCHC 34.2 32.7 - 35.5 g/dL [facility] Comment:Testing performed by : [address] [address] RDW CV 14.8(H) 11.8 - 14.6 % [facility] Comment:Testing performed by : [facility], [address] [place] [phone] NRBC abs 0.04(H) 0.00 - 0.01 K/cumm [facility] Comment:Testing performed by : [facility], [address] [place] [phone] Blood specimen (specimen) 09/16/2020 11:37 AM TRAPEZE ARTIST 09/16/2020 11:39 AM TRAPEZE ARTIST us Hans Mendes MD PhD LAB BLOOD ORDERABL ES Final Result [facility] Department [place] [address] * (ABNORMAL) Comprehensive metabolic panel (09/16/2020 11:37 AM TRAPEZE ARTIST) Sodium 139 135 - 145 mmol/L [facility] Comment:Testing performed by : [facility], [address] [place] [phone] Potassium, pl 4.5 3.3 - 4.9 mmol/L [facility] Comment:Testing performed by : [facility], [address] [place] [phone] Chloride 104 97 - 110 mmol/L [facility] Comment:Testing performed by : [address] [phone] CO2 26 22 - 32 mmol/L [facility] Comment:Testing performed by : [facility], [address] [place] [phone] Anion gap 9 2 - 15 mmol/L [facility] Comment:Testing performed by : [facility], [address] [place] [phone] BUN 11 8 - 25 mg/dL [facility] Comment:Testing performed by : [facility], [address] [place] [phone] Creatinine 0.74(L) 0.80 - 1.30 mg/dL [facility] Comment:Testing performed by : [facility], [address] [place] [phone] Glucose 98 70 - 199 mg/dL [facility] Comment: Interpretive Data Fasting glucose >/= [...] 2017. Testing performed by: [facility], [address] [place] [phone] Calcium 9.7 8.5 - 10.3 mg/dL [facility] Comment:Testing performed by : [address] [phone] Bilirubin, total 0.5 0.1 - 1.2 mg/dL [facility] Comment:Testing performed by : [address] [phone] Protein, pl 6.6 6.5 - 8.5 g/dL [facility] Comment:Testing performed by : [address] [phone] Albumin 4.6 3.5 - 5.0 g/dL [facility] Comment:Testing performed by : [address] [phone] Alk phos 583(H) 40 - 130 Units/L [facility] Comment:Testing performed by : [facility], [address] [place] [phone] ALT 66(H) 7 - 55 Units/L [facility] Comment:Testing performed by : [address] [phone] AST 48 10 - 50 Units/L [facility] Comment:Testing performed by : [address] [phone] Blood specimen (specimen) 09/16/2020 11:37 AM TRAPEZE ARTIST 09/16/2020 11:39 AM TRAPEZE ARTIST Hans Mendes MD PhD LAB BLOOD ORDERABL ES Final Result Performing Organization Address City/[facility] Co de Phone Number [facility] [place] [address] * Rheumatoid factor (09/16/2020 11:37 AM TRAPEZE ARTIST) Pathologist [facility] Rheumatoid factor, quant <10.0 0.1 - 15.0 IUnits/mL [facility] Blood specimen (specimen) 09/16/2020 11:37 AM TRAPEZE ARTIST 09/16/2020 11:57 AM TRAPEZE ARTIST Hans Mendes MD PhD LAB BLOOD ORDERABL ES Final Result Performing Organization Address [facility] [place] [address] * GEOVANNI Antibody Evaluation with Reflex (09/16/2020 11:37 AM TRAPEZE ARTIST) Pathologist [facility] GEOVANNI ab Negative Negative [facility] Comment: Interpretive Data Positive Screens will be reflexed to specific testing for the following antigens: Joy-1 Ab, EXCELLENCE LEADER Ab, Scl-70 Ab, Zamora Ab, SS-A/Ro Ab, and SS-B/La Ab. Further testing for dsDNA, Centromere, or Ribosomal P antibodies is suggested in patient with a positive screen and negative specific antibodies. Current interpretive data was last revised on 17. Blood specimen (specimen) 09/16/2020 11:37 AM TRAPEZE ARTIST 09/16/2020 11:55 AM TRAPEZE ARTIST Hans Mendes MD PhD LAB BLOOD ORDERABL ES Final Result Performing Organization Address [facility] Co de Phone Number [facility] [place] [place] [address] * KEISHA qualitative with reflex to KEISHA Quantitative (09/16/2020 11:37 AM TRAPEZE ARTIST) Pathologist [facility] KEISHA Negative [facility] Comment: Interpretive Data Normal range for KEISHA [...] 2020. Blood specimen (specimen) 09/16/2020 11:37 AM TRAPEZE ARTIST 09/16/2020 11:55 AM TRAPEZE ARTIST us Hans Mendes MD PhD LAB BLOOD ORDERABL ES Final Result Performing Organization Address [facility] de Phone Number [facility] [place] [address] * (ABNORMAL) Aldolase (09/16/2020 11:37 AM TRAPEZE ARTIST) Aldolase 11.8(H) 0.1 - 8.0 Units/L [facility] Blood specimen (specimen) 09/16/2020 11:37 AM TRAPEZE ARTIST 09/16/2020 11:57 AM TRAPEZE ARTIST us Hans Mendes MD PhD LAB BLOOD ORDERABL ES Final Result Performing Organization Address [facility] de Phone Number [facility] [place] [address] * Creatine kinase (CK), total (09/16/2020 11:37 AM TRAPEZE ARTIST) CK 43 40 - 300 Units/L [facility] Blood specimen (specimen) 09/16/2020 11:37 AM TRAPEZE ARTIST 09/16/2020 11:57 AM TRAPEZE ARTIST Hans Mendes MD PhD LAB BLOOD ORDERABL ES Final Result Performing Organization Address [facility] Co de Phone Number [facility] Department [place] [address] documented in this encounter Visit Diagnoses Diagnosis Chronic arthralgias of knees and hips- Primary Weakness Other malaise and fatigue documented in this encounter Orders Outpatient Referral Count Last Ordered Date Fir st Ordered Date AMB REFERRAL TO NEUROLOGY 1 09/16/2020 documented in this encounter Care Teams Ordnance Handler Relationship Specialty Start Date End Date Guero Colunga DO PCP - General Internal Medicine 03/22/19 04/18/23 Amber Montesinos, [employer] Transplant 11/17/19 Jil Duncan MD Consulting Physician Infectious Diseases 01/10/20 Anita Gillespie MD Medical Oncologist/[employer] Rattle And Leak Repairer Medical Oncology 10/07/20 documented as of this encounter
--- OUTSIDE RECORDS SUMMARY | 2024-10-28 06:19 | XMS_ITS | Encounter Summary ---
Author Organization [facility] Address [address] [place] [address] Phone Care Team Providers Care Slab Depiler Operator Name Role Phone Guero Colunga DO Primary Care Provider [phone] Amber Montesinos RN Unavailable [phone] Jil Duncan MD Unavailable [phone] Encounter Details Date Type Department Care Team (Late st Contact Info) Description 09/20/2020 Telephone [facility] Neuro Muscle [address] [facility] Advanced Medicine 6th [place] [address] [place] [address] Jason Topete MD [address] [place] [address] Social History Tobacco Use Types Packs/Day Years Used Date Smoking Tobacco: Never Smokeless Tobacco: Never Alcohol Use Standard Drinks/Week Comments Yes 0 (1 standard drink = 0.6 oz pur e alcohol) occassional Sex and Gender Information Value Date Recorded Sex Assigned at Not on file Legal Sex Male 6:28 AM SHIPYARD HELPER Gender Identity Not on file Sexual Orientation Straight 08/22/2021 9: 23 AM CDT documented as of this encounter Miscellaneous Notes * Telephone Encounter - Jason Topete MD - 09/20/2020 12:04 PM SHIPYARD HELPER Spoke with patient's mother, Brooklynn Nichols, about workup for Beka's pain and weakness thus far and our current differential diagnoses. 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 I briefly went over EMG/NCS and mentioned that Beka may be able to be scheduled for a muscle biopsy to help make the diagnosis. Patient's mother asked if there were any labs that needed to bedrawn for this workup, and she was told that orders were in for a enterovirus PCR that could be drawn when they are back at the [facility] on 10/02. She also asked about treatment, and I respondedthat IVIg is a potential therapy if the diagnosis of chronic enterovirus infection is made. Jason Topete MD YARD HELPER documented in this encounter Plan of Treatment Scheduled Procedures Name Priority Associated Diagnoses Date/Ti me COLONOSCOPY Encounter for screening for colorectal cancer in high risk patient Family history of rectal cancer documented as of this encounter Visit Diagnoses Not on filedocumented in this encounter Care Teams Slab Depiler Operator Relationship Specialty Start Date End Date Guero Colunga DO PCP - General Internal Medicine 03/22/19 04/18/23 Amber Montesinos RN Label Cutter Transplant 11/17/19 Jil Duncan MD Consulting Physician Infectious Diseases 01/10/20 documented as of this encounter
--- OUTSIDE RECORDS SUMMARY | 2024-10-28 06:19 | XMS_ITS | Encounter Summary ---
Author Organization [facility] Address [address] [place] [address] Care Team Providers Care Disability Liaison Officer Name Role Phone Guero Colunga DO Primary Care Provider Amber Montesinos RN Unavailable [phone] Jil Duncan MD Unavailable [phone] Encounter Details Date Type Department Care Team (Late st Contact Info) Description 05/31/2020 Telephone [facility] Trans[facility] Liver [address] [facility] [phone] [place] [address] Amber Montesinos, SHAILESH Social History Tobacco Use Types Packs/Day Years Used Date Smoking Tobacco: Never Smokeless Tobacco: Never Alcohol Use Standard Drinks/Week Comments Yes 0 (1 standard drink = 0.6 oz pur e alcohol) occassional Sex and Gender Information Value Date Recorded Sex Assigned at Not on file Legal Sex Male 6:28 AM TEST TECH Gender Identity Not on file Sexual Orientation Straight 08/22/2021 9: 23 AM CDT documented as of this encounter Miscellaneous Notes * Telephone Encounter - Amber Vargas RN - 05/31/2020 3:53 PM CDT Placed call to patient to update him and let them know to get labs repeated next week per Dr. Gresham's recommendation documented in this encounter Plan of Treatment Scheduled Procedures Name Priority Associated Diagnoses Date/Ti me COLONOSCOPY Encounter for screening for colorectal cancer in high risk patient Family history of rectal cancer documented as of this encounter Visit Diagnoses Not on filedocumented in this encounter Care Teams Disability Liaison Officer Relationship Specialty Start Date End Date Guero Colunga DO PCP - General Internal Medicine 03/22/19 04/18/23 Amber Montesinos, SHAILESH Hot Blast Worker Transplant 11/17/19 Jil Duncan MD Consulting Physician Infectious Diseases 01/10/20 documented as of this encounter
--- OUTSIDE RECORDS SUMMARY | 2024-10-28 06:19 | XMS_ITS | Encounter Summary ---
Author Organization [facility] Address [address] [place] [address] Phone Care Team Providers Care Lawyer Name Role Phone Guero Colunga DO Primary Care Provider [phone] Amber Montesinos RN Unavailable [phone] Jil Duncan MD Unavailable [phone] Encounter Details Date Type Department Care Team (Late st Contact Info) Description 09/13/2020 Telephone [facility] Oncology [facility] 7th [place] [address] [place] [address] Samreen Greene RN Social History Tobacco Use Types Packs/Day Years Used Date Smoking Tobacco: Never Smokeless Tobacco: Never Alcohol Use Standard Drinks/Week Comments Yes 0 (1 standard drink = 0.6 oz pur e alcohol) occassional Sex and Gender Information Value Date Recorded Sex Assigned at Not on file Legal Sex Male 6:28 AM CADWORX PIPING DESIGNER Gender Identity Not on file Sexual Orientation Straight 08/22/2021 9: 23 AM CDT documented as of this encounter Miscellaneous Notes * Telephone Encounter - Samreen Greene RN - 09/13/2020 12:25 PM CADWORX PIPING DESIGNER Brooklynn called to share that they can see Dr. Mendes on Wednesday at 10AM. They are aware that they willneed to go to the 6th floor [address]. She knows to call in the interim with any other questions/concerns. ORX PIPING DESIGNER documented in this encounter Plan of Treatment Scheduled Procedures Name Priority Associated Diagnoses Date/Ti me COLONOSCOPY Encounter for screening for colorectal cancer in high risk patient Family history of rectal cancer documented as of this encounter Visit Diagnoses Not on filedocumented in this encounter Care Teams Lawyer Relationship Specialty Start Date End Date Guero Colunga DO PCP - General Internal Medicine 03/22/19 04/18/23 Amber Montesinos RN Wood Pole Treater Transplant 11/17/19 Jil Duncan MD Consulting Physician Infectious Diseases 01/10/20 documented as of this encounter
--- OUTSIDE RECORDS SUMMARY | 2024-10-28 06:19 | XMS_ITS | Encounter Summary ---
Author Organization [facility] Address [address] [place] [address] Phone Care Team Providers Care Clerk Of Court Name Role Phone Guero Colunga DO Primary Care Provider [phone] Amber Montesinos RN Unavailable [phone] Jil Duncan MD Unavailable [phone] Encounter Details Date Type Department Care Team (Late st Contact Info) Description 06/12/2020 7:30 AM CDT Lab [facility] Oncology [address] [facility] Advanced Medicine 7th [place] [address] [place] [address] Anita Gillespie MD [address] [facility] [address] [place] [address] 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 Beka Ley continues to have viremia. Let me know if we need to do anything else. documented in this encounter Plan of Treatment Scheduled Procedures Name Priority Associated Diagnoses Date/Ti me COLONOSCOPY Encounter for screening for colorectal cancer in high risk patient Family history of rectal cancer documented as of this encounter Procedures Procedure Name Priority Date/Time Associated Diagnosis Comments CYTOMEGALOVIRUS (CMV) DNA, QUANT GEN LAB Routine 06/12/2020 7:50 AM CDT History of liver transplant (CMS/HCC) Cytomegalovirus infection, unspecified cytomegaloviral infection type (CMS/HCC) DIFFERENTIAL AUTO Routine 06/12/2020 7:5 0 AM CDT History of liver transplant (CMS/HCC) CBC WITH AUTO DIFFERENTIAL Routine 06/12/2020 7:50 AM CDT History of liver transplant (CMS/HCC) LACTATE DEHYDROGENASE Routine 06/12/2020 7:50 AM CDT 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) GAMMA GT Routine 06/12/2020 7:50 AM CDT History of liver transplant (CMS/HCC) COMPREHENSIVE METABOLIC PANEL Routine 06/12/2020 7:50 AM CDT History of liver transplant (CMS/HCC) TACROLIMUS LEVEL, TROUGH Routine 06/12/2020 7:45 AM CDT History of liver transplant (CMS/HCC) LIPID PANEL Routine 06/12/2020 7:45 AM CDT History of liver transplant (CMS/HCC) documented in this encounter Results * (ABNORMAL) Differential, auto (06/12/2020 7:50 AM CDT) Neutrophil abs 5.7 1.8 - 6.6 K/cumm [facility] Comment:Testing performed by : [facility], [address] [place] [phone] Lymphocyte abs 4.5(H) 1.2 - 3.3 K/cumm [facility] Comment:Testing performed by : [facility], [address] [place] [phone] Monocyte abs 2.6(H) 0.2 - 1.2 K/cumm [facility] Comment:Testing performed by : [facility], [address] [place] [phone] Eosinophil abs 0.8(H) 0.0 - 0.5 K/cumm [facility] Comment:Testing performed by : [facility], [address] [place] [phone] Basophil abs 0.0 0.0 - 0.2 K/cumm [facility] Comment:Testing performed by : [facility], [address] [place] [phone] Neutrophil pct 42.1 % [facility] Comment: Interpretive Data Percent cell count reference ranges are not reported, since discordance with absolute values may lead to misinterpretation of CBC data. Current Interpretive Data was last revised on 2018. Testing performed by: [facility], [address] [place] [phone] Lymphocyte pct 33.0 % [facility] Comment: Interpretive Data Percent cell count reference ranges are not reported, since discordance with absolute values may lead to misinterpretation of CBC data. Current Interpretive Data was last revised on 2018. Testing performed by: [facility], [address] [place] [phone] Monocyte pct 18.6 % [facility] Comment:Testing performed by : [facility], [address] [place] [phone] Eosinophil pct 6.0 % [facility] Comment:Testing performed by : [facility], [address] [place] [address] Basophil pct 0.3 % [facility] Comment:Testing performed by : [facility], [address] [facility] [phone] Blood specimen (specimen) 06/12/2020 7:50 AM CDT 06/12/2020 7:51 AM CDT Theodore Gresham MD LAB BLOOD ORDERABLES Final Result Performing Organization Address City/[facility]/ZIP Co de Phone Number [facility] [place] [address] * (ABNORMAL) Cytomegalovirus (CMV) DNA PCR, quantitative Blood (06/12/2020 7:50 AM CDT) [facility] CMV DNA Detected( A) [facility] Comment: Interpretive Data: The quantifiable range of this assay is 137 IUnits/mL to 9,100,000 IUnits/mL (2.14 log IUnits/mL to 6.96 log IUnits/mL). Testing was performed by the [employer] AmpliPrep/NIA TaqMan CMV Test ([employer] Testing performed at [facility] Current interpretive data was last revised on 17. CMV DNA IU/mL 2,869 IUnits/mL [facility] CMV DNA log IU/mL 3.46 log IUnits/mL [facility] Blood specimen (specimen) 06/12/2020 7:50 AM CDT 06/12/2020 12:33 PM CDT Narrative [facility] - 06/13/2020 10:17 AM CDT *Please draw along with Dr. Gillespie's labs this day* Theodore Gresham MD LAB MICROBIOLOGY - GENERAL ORDERABLES Final Result Performing Organization Address City/[facility]/ZIP Co de Phone Number [facility] [place] [address] * (ABNORMAL) Gamma GT (06/12/2020 7:50 AM CDT) [facility] GGT 269(H) 10 - 50 Units/L [facility] Comment:Testing performed by : [facility], [address] [place] [phone] Blood specimen (specimen) 06/12/2020 7:50 AM CDT 06/12/2020 7:51 AM CDT Narrative [facility] - 06/12/2020 8:13 AM CDT *Please draw along with Dr. Gillespie's labs on 06/12* us Theodore Gresham MD LAB BLOOD ORDERABLES Final Result [facility] Department [place] [address] * (ABNORMAL) Comprehensive metabolic panel (06/12/2020 7:50 AM CDT) Sodium 141 135 - 145 mmol/L [facility] Comment:Testing performed by : [facility], [address] [place] [phone] Potassium, pl 4.1 3.3 - 4.9 mmol/L [facility] Comment:Testing performed by : [facility], [address] [place] [phone] Chloride 105 97 - 110 mmol/L [facility] Comment:Testing performed by : [facility], [address] [place] [phone] CO2 27 22 - 32 mmol/L [facility] Comment:Testing performed by : [facility], [address] [place] [phone] Anion gap 9 2 - 15 mmol/L [facility] Comment:Testing performed by : [facility], [address] [place] [phone] BUN 7(L) 8 - 25 mg/dL [facility] Comment:Testing performed by : [facility], [address] [place] [phone] Creatinine 0.85 0.80 - 1.30 mg/dL [facility] Comment:Testing performed by : [address] [address] Glucose 76 70 - 199 mg/dL [facility] Comment: [...] was last revised 2017. Testing performed by: [facility], [address] [place], [place] [phone] Calcium 9.3 8.5 - 10.3 mg/dL [facility] Comment:Testing performed by : [place] [id number] Bilirubin, total 0.4 0.1 - 1.2 mg/dL [facility] Comment:Testing performed by : [address] [phone] Protein, pl 5.9(L) 6.5 - 8.5 g/dL [facility] Comment:Testing performed by : [address] [address] Albumin 4.4 3.5 - 5.0 g/dL [facility] Comment:Testing performed by : [address] [address] Alk phos 394(H) 40 - 130 Units/L [facility] Comment:Testing performed by : [address] [address] ALT 38 7 - 55 Units/L [facility] Comment:Testing performed by : [address] [address] AST 32 10 - 50 Units/L [facility] Comment:Testing performed by : [address] [address] Blood specimen (specimen) 06/12/2020 7:50 AM CDT 06/12/2020 7:51 AM CDT Narrative [facility] - 06/12/2020 8:13 AM CDT *Please draw along with Dr. Gillespie's labs on 06/12* us Theodore Gresham MD LAB BLOOD ORDERABLES Final Result [facility] Department [place] [address] * (ABNORMAL) CBC with auto differential (06/12/2020 7:50 AM CDT) WBC 13.7(H) 3.8 - 9.8 K/cumm [facility] Comment:Testing performed by : [facility], [address] [place] [address] Hgb 15.2 13.8 - 17.2 g/dL [facility] Comment:Testing performed by : [facility], [address] [place] [phone] Hct 44.7 40.7 - 50.3 % [facility] Comment:Testing performed by : [facility], [address] [place] [phone] Plt 271 140 - 440 K/cumm [facility] Comment:Testing performed by : [address] [address] MPV 7.5 6.8 - 10.4 fL [facility] Comment:Testing performed by : [address] [address] RBC 4.60 4.50 - 5.70 M/cumm [facility] Comment:Testing performed by : [facility], [address] [place] [phone] MCV 97.0 80.0 - 97.6 fL [facility] Comment:Testing performed by : [address] [address] MCH 33.0 26.7 - 33.7 pg [facility] Comment:Testing performed by : [address] [address] MCHC 34.0 32.7 - 35.5 g/dL [facility] Comment:Testing performed by : [facility], [address] [place], [place] [phone] RDW CV 13.6 11.8 - 14.6 % [facility] Comment:Testing performed by : [facility], [address] [place], [place] [phone] NRBC abs 0.01 0.00 - 0.01 K/cumm [facility] Comment:Testing performed by : [facility], [address] [place], [place] [phone] Blood specimen (specimen) 06/12/2020 7:50 AM CDT 06/12/2020 7:51 AM CDT Narrative [facility] - 06/12/2020 7:57 AM CDT *Please draw along with Dr. Gillespie's labs on 06/12* Theodore Gresham MD LAB BLOOD ORDERABLES Final Result Performing Organization Address [facility]/ZIP Co de Phone Number [facility] [place] [employer] [place] [address] * Lactate dehydrogenase (LD) (06/12/2020 7:50 AM CDT) Lactate dehydrogenase (LDH) 225 100 - 250 Units/L [facility] Comment:Testing performed by : [facility], [address] [place], [place] [phone] Blood specimen (specimen) 06/12/2020 7:50 AM CDT 06/12/2020 7:51 AM CDT Nancy Butler NP LAB BLOOD ORDERABLES Final Result Performing Organization Address [facility]/ZIP Co de Phone Number [facility] [place] [address] * (ABNORMAL) Lipid panel (06/12/2020 7:45 AM CDT) Cholesterol 135 30 - 199 mg/dL [facility] Comment: Interpretive Data Ages < or = 19 years ??Acceptable: ? <170 mg/dL ??Borderline high: ??170-199 mg/dL ??High: ? >or= 200 mg/dL Ages > or = 20 years ??Desirable: ?<200 mg/dL ??Borderline high: ??200-239 mg/dL ??High: ? >or= 240 mg/dL Literature References: 1. Expert Panel on Integrated Guidelines for Cardiovascular Health and Risk Reduction in Children and Adolescents. Pediatrics 2011;128:S213 2. NCEP Expert Panel. Circulation 2004;110:227 Current Interpretive Data was last revised on 2018. Triglycerides 139 <=149 mg/dL [facility] Comment: Interpretive Data Ages < or = 9 years ??Acceptable: ? <75 mg/dL ??Borderline high: ??75-99 mg/dL ??High: ? >or= 100 mg/dL Ages 10 to 20 years ??Acceptable: ? <90 mg/dL ??Borderline high: ??90-129 mg/dL ??High: ? >or= 130 mg/dL Ages > or = 20 years ??Desirable: ?<150 mg/dL ??Borderline high: ??150-199 mg/dL ??High: ? 200-499 mg/dL ?Very high: ?? >or= 499 mg/dL Literature References: 1. Expert Panel on Integrated Guidelines for Cardiovascular Health and Risk Reduction in Children and Adolescents. Pediatrics 2011;128:S213 2. NCEP Expert Panel. Circulation 2004;110:227 Current Interpretive Data was last revised on 2018. HDL 31(L) >=40 mg/dL [facility] Comment: Interpretive Data Ages < or = 19 years ??Acceptable: ? >45 mg/dL ??Borderline low: ?? 40-45 mg/dL ??Low: ? <40 mg/dL Ages > or = 20 years ??Desirable: ?>or= 60 mg/dL ??Low: ? <40 mg/dL Literature References: 1. Expert Panel on Integrated Guidelines for Cardiovascular Health and Risk Reduction in Children and Adolescents. Pediatrics 2011;128:S213 2. NCEP Expert Panel. Circulation 2004;110:227 Current Interpretive Data was last revised on 2018. LDL, calculated 76 <=129 mg/dL [facility] Comment: Interpretive Data Ages < or = 19 years ??Acceptable: ? <110 mg/dL ??Borderline high: ??110-129 mg/dL ??High: ?>or= 130 mg/dL Ages > or = 20 years ??Optimal: ? <100 mg/dL ??Near optimal: ?100-129 mg/dL ??Borderline high: ?? 130-159 mg/dL ??High: ?>160 mg/dL Literature References: 1. Expert Panel on Integrated Guidelines for Cardiovascular Health and Risk Reduction in Children and Adolescents. Pediatrics 2011;128:S213 2. NCEP Expert Panel. Circulation 2004;110:227 Current Interpretive Data was last revised on 2018. Non-HDL Cholesterol 104 mg/dL [facility] Comment: Interpretive Data Ages < or = 19 years ??Acceptable: ?<120 mg/dL ??Borderline high: ??120-144 mg/dL ??High: ?>145 mg/dL Ages > or = 20 years ??When triglycerides are >200 mg/dL, Non-HDL cholesterol is a secondary target of ? therapy with treatment goals that are 30 mg/dL greater than the LDL cholesterol target. ? Literature References: 1. Expert Panel on Integrated Guidelines for Cardiovascular Health and Risk Reduction in Children and Adolescents. Pediatrics 2011;128:S213 2. NCEP Expert Panel. Circulation 2004;110:227 Current Interpretive Data was last revised on 2018. Chol/HDL ratio 4 [facility] Blood specimen (specimen) 06/12/2020 7:45 AM CDT 06/12/2020 8:14 AM CDT Narrative [facility] - 06/12/2020 8:43 AM CDT *Please draw along with Dr. Gillespie's labs on 06/12* Theodore Gresham MD LAB BLOOD ORDERABLES Final Result Performing Organization Address [facility] Co de Phone Number [facility] [place] [address] * Tacrolimus level trough (06/12/2020 7:45 AM CDT) [facility] Tacrolimus trough 5.7 ng/mL [facility] Comment: Interpretive Data Testing performed by liquid chromatography-tandem mass spectrometry. ??Therapeutic concentrations vary depending on type of transplanted organ and time elapsed since transplant. ??Typical trough concentrations range from 5-15 ng/mL. ??This test was developed and its performance characteristics determined by the [facility] consistent with CLIA requirements. ??This test has not been cleared or approved by the [place] Food and Drug administration. ??Current interpretive data last reviewed 2020. Blood specimen (specimen) 06/12/2020 7:45 AM CDT 06/12/2020 8:14 AM CDT Narrative [facility] - 06/12/2020 11:22 AM CDT *Please draw along with Dr. 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) History of liver transplant (CMS/HCC) (HCC) Liver replaced by transplant Cytomegalovirus infection, unspecified cytomegaloviral infection type (HCC) documented in this encounter Orders Appointment Requests Count Last Ordered Date Fi rst Ordered Date ONCBCN LAB APPOINTMENT 1 06/12/2020 documented in this encounter Care Teams Clerk Of Court Relationship Specialty Start Date End Date Guero Colunga DO PCP - General Internal Medicine 03/22/19 04/18/23 Amber Montesinos, RN Fuel Pilot Engineer Transplant 11/17/19 Jil Duncan MD Consulting Physician Infectious Diseases 01/10/20 documented as of this encounter
--- OUTSIDE RECORDS SUMMARY | 2024-10-28 06:19 | XMS_ITS | Encounter Summary ---
Author Organization [facility] Address [address] [place] [address] Phone Care Team Providers Care Music Therapy Teacher Name Role Phone Guero Colunga DO Primary Care Provider Amber Montesinos RN Unavailable [phone] Jil Duncan MD Unavailable [phone] Encounter Details Date Type Department Care Team (Latest Contact Info) Description 09/20/2020 Orders Only [facility] Oncology [address] [facility] [address] [place] [address] [place] [id number] Samreen Greene RN Hypogammaglobulinemia (CMS/HCC) (Primary Dx) Social History Tobacco Use Types Packs/Day Years Used Date Smoking Tobacco: Never Smokeless Tobacco: Never Alcohol Use Standard Drinks/Week Comments Yes 0 (1 standard drink = 0.6 oz pur e alcohol) occassional Sex and Gender Information Value Date Recorded Sex Assigned at Not on file Legal Sex Male 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 AM 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 RIGGER Gender Identity Not on file Sexual Orientation Straight 08/22/2021 9: 23 AM CDT documented as of this encounter Plan of Treatment Scheduled Procedures Name Priority Associated Diagnoses Date/Ti me COLONOSCOPY Encounter for screening for colorectal cancer in high risk patient Family history of rectal cancer documented as of this encounter Visit Diagnoses Diagnosis Hypogammaglobulinemia (HCC)- Primary Unspecified hypogammaglobulinemia documented in this encounter Orders Appointment Requests Count Last Ordered Date Fi rst Ordered Date INFUSION APPT REQUEST 300 MIN 1 10/08/2020 documented in this encounter Care Teams Music Therapy Teacher Relationship Specialty Start Date End Date Guero Colunga DO PCP - General Internal Medicine 03/22/19 04/18/23 Amber Montesinos, SHAILESH Electrifier Operator Transplant 11/17/19 Jil Duncan MD Consulting Physician Infectious Diseases 01/10/20 documented as of this encounter
--- OUTSIDE RECORDS SUMMARY | 2024-10-28 06:19 | XMS_ITS | Encounter Summary ---
Author Organization [facility] Healthcare Address [address] [place] [address] Care Team Providers Care Salesperson Burial Needs Name Role Phone Guero Colunga DO Primary Care Provider [phone] Amber Montesinos RN Unavailable [phone] Jil Duncan MD Unavailable [phone] Anita Gillespie MD Unavailable [phone] Tabitha Hurley MD Unavailable [phone] Massiel Gastelum MD Unavailable [phone] Beka Nick MD Primary Care Provider [phone] Beka Nick MD Primary Care Provider [phone] Unknown, Notinfile Primary Care Provider Unavail able Guero Colunga DO Primary Care Provider [phone] Encounter Details Date Type Department Care Team (Late st Contact Info) Description 09/30/2020 Telephone [facility] Rad[facility] [address] [place] [address] Yasmin Perez, RT Social History Tobacco Use Types Packs/Day Years Used Date Smoking Tobacco: Never Smokeless Tobacco: Never Alcohol Use Standard Drinks/Week Comments Yes 0 (1 standard drink = 0.6 oz pur e alcohol) occassional Sex and Gender Information Value Date Recorded Sex Assigned at Not on file Legal Sex Male 6:28 AM 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 OK to come off rhino/enterovirus precautions. Adriane Herrera RN 08/25/2023 08/25/20232022 2:08 PM CDT COVID: Suspected 10/03/2023 10/03/2023 10/03/2023 9:58 AM APPEALS ANALYST Rhino/Enterovirus 10/03/2023 10/03/2023 10/17/2023 3:05 AM APPEALS ANALYST COVID: Suspected 02/18/2024 02/18/2024 02/18/2024 7:27 AM CDT Rhino/Enterovirus 02/18/2024 02/19/2024 03/04/2024 3:05 AM CDT documented as of this encounter Care Teams Salesperson Burial Needs Relationship Specialty Start Date End Date Guero Colunga DO PCP - General Internal Medicine 03/22/19 04/18/23 Beka Nick MD [address] [place] [address] PCP - General Family Practice 04/19/23 04/19/23 Beka Nick MD [address] [place] [address] PCP - General Family Practice 05/31/23 04/25/24 Unknown, Notinfile PCP - General 04/26/24 08/01/24 Guero Colunga DO [address] [place] [address] PCP - General Internal Medicine 08/02/24 Amber Montesinos, SHAILESH Wire Loop Machine Operator Transplant 11/17/19 Jil Duncan MD Consulting Physician Infectious Diseases 01/10/20 Anita Gillespie MD Medical Oncologist/Double Needle Stitcher Medical Oncology 10/07/20 Tabitha Hurley MD [address] [place] [address] Consulting Physician Rheumatology 10/22/21 Massiel Gastelum MD [address] [place] [address] Consulting Physician Otolaryngology 08/27/22 documented as of this encounter
--- OUTSIDE RECORDS SUMMARY | 2024-10-28 06:19 | XMS_ITS | Encounter Summary ---
Author Organization [facility] Healthcare Address [address] [place] [address] Care Team Providers Care Assistant Softball Coach Name Role Phone Guero Colunga Primary Care Provider [phone] Amber Montesinos RN Unavailable [phone] Jil Duncan MD Unavailable [phone] Encounter Details Date Type Department Care Team (Late st Contact Info) Description 04/30/[address] [facility] Transplant Liver [address] 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 Reviewed most recent labs with Dr. Gresham. would like patient to have repeat liver biopsy. Explained rationale to mother. Mother stating she understands but feels bad for patient. Patient has been having a hard time getting work d/t his complex medical issues. Mom not sure if patient will need to file for disability. Offered that I can provide her with [employer] work and financial coordinators info if she has any questions. Mother is going to talk to patient when he returns home and call our office back. Offered that Dr. Gresham would talk to them if patient would like. Reviewed that patient is anxious about biopsies d/t past experience and would l ben sedation. Updated Dr. Gresham. * Telephone Encounter - Jacquelyn Welsh - 04/30/2020 1:13 PM CDT Pt's mom Brooklynn is returning your call, call back [phone] documented in this encounter Plan of Treatment Scheduled Procedures Name Priority Associated Diagnoses Date/Ti me COLONOSCOPY Encounter for screening for colorectal cancer in high risk patient Family history of rectal cancer documented as of this encounter Visit Diagnoses Not on filedocumented in this encounter Care Teams Assistant Softball Coach Relationship Specialty Start Date End Date Guero Colunga DO PCP - General Internal Medicine 03/22/19 04/18/23 Amber Montesinos RN Talent Management Specialist Transplant 11/17/19 Jil Duncan MD Consulting Physician Infectious Diseases 01/10/20 documented as of this encounter
--- OUTSIDE RECORDS SUMMARY | 2024-10-28 06:19 | XMS_ITS | Encounter Summary ---
Author Organization [facility] Healthcare Address [address] [place] [address] Care Team Providers Care Outside Parts Salesman Name Role Phone Guero Colunga DO Primary Care Provider [phone] Amber Montesinos RN Unavailable [phone] Jil Duncan MD Unavailable [phone] Encounter Details Date Type Department Care Team (Late st Contact Info) Description 07/23/2020 Documentation [facility] Transplant Liver [address] [facility] [phone] [place] [address] Eli Brink Social History Tobacco Use Types Packs/Day Years Used Date Smoking Tobacco: Never Smokeless Tobacco: Never Alcohol Use Standard Drinks/Week Comments Yes 0 (1 standard drink = 0.6 oz pur e alcohol) occassional Sex and Gender Information Value Date Recorded Sex Assigned at Not on file Legal Sex Male 6:28 AM LOAD TALLIER Gender Identity Not on file Sexual Orientation Straight 08/22/2021 9: 23 AM CDT documented as of this encounter Plan of Treatment Scheduled Procedures Name Priority Associated Diagnoses Date/Ti me COLONOSCOPY Encounter for screening for colorectal cancer in high risk patient Family history of rectal cancer documented as of this encounter Visit Diagnoses Not on filedocumented in this encounter Care Teams Outside Parts Salesman Relationship Specialty Start Date End Date Guero Colunga DO PCP - General Internal Medicine 03/22/19 04/18/23 Amber Montesinos, SHAILESH Densitometrist Transplant 11/17/19 Jil Duncan MD Consulting Physician Infectious Diseases 01/10/20 documented as of this encounter
--- OUTSIDE RECORDS SUMMARY | 2024-10-28 06:19 | XMS_ITS | Encounter Summary ---
Author Organization [facility] Healthcare Address [address] [place] [address] Care Team Providers Care Medical Front Desk Coordinator Name Role Phone Guero Colunga DO Primary Care Provider [phone] Amber Montesinos RN Unavailable [phone] Jil Duncan MD Unavailable [phone] Reason for Referral * Diagnostic Imaging (Routine) - Closed Specialty Diagnoses / Procedures Referred By Contac t Referred To Contact Radiology Diagnoses History of liver transplant (CMS/HCC) (HCC) LFT elevation Procedures US Guided Biopsy Liver IR Biopsy Liver US Guided Biopsy Liver IR Biopsy Liver Theodore Gresham MD Phone: tel: fax: [address] [address] Referral ID Status Reason Start Date Expiration Date Visits Re quested Visits Authorized [id number] Closed 05/02/2020 11/11/2021 1 1 Encounter Details Date Type Department Care Team (Late st Contact Info) Description 05/01/2020 Telephone [facility] Transplant Liver [address] [facility] [phone] [place] [address] Amber Montesinos RN Social History Tobacco Use Types Packs/Day Years Used Date Smoking Tobacco: Never Smokeless Tobacco: Never Alcohol Use Standard Drinks/Week Comments Yes 0 (1 standard drink = 0.6 oz pur e alcohol) occassional Sex and Gender Information Value Date Recorded Sex Assigned at Not on file Legal Sex Male 6:28 AM DIALYSIS 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 Patient agreeable to having biopsy done if it is done in IR. Reviewed with Dr. Gresham and IR biopsy is fine to schedule since patient is fearful of biopsies and hada bad experience in the past. Patient is having biopsy done d/t elevation in LFT's. Previous biopsyon area of necrosis/abscess but would like repeat biopsy on another area to determine cause of LFT elevation. Mom stating that patient unable to have procedure done from - since mother has other commitments and cannot take him to the hospital. Also unavailable on the and . Sent Chemayi messageto IR coordinator, Neida to schedule. documented in this encounter Plan of Treatment Scheduled Procedures Name Priority Associated Diagnoses Date/Ti mn COLONOSCOPY Encounter for screening for colorectal cancer in high risk patient Family history of rectal cancer documented as of this encounter Results * US Guided Biopsy Liver (05/14/2020 1:51 PM CDT) Anatomical Region Laterality Modality Leg N/A X-Ray Angiograph y 05/14/2020 1:54 PM CDT Impressions 05/14/2020 2:24 PM CDT 1. Successful ultrasound-guided liver parenchyma core needle biopsy. 2. Please see separate Surgical Pathology results for final interpretation. Dictated by: Nikolai Vela M.D. The radiology attending physician has personally reviewed this study, and had reviewed and/or edited this written report and agrees with it. Electronically signed by: Jason Calderon M.D. 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 ??Recently biopsied liver lesion returning necrosis. ??Background liver biopsy requested. COMPARISON: ??Liver MRI for 11/20/2019, liver MRI for 2019, CT abdomen/pelvis 04/05/2020, and prior ultrasound-guided biopsy 02/02/2020. FINDINGS: Limited sonographic evaluation of the abdomen revealed an orthotopic liver transplantation as seen on multiple imaging modalities. TECHNIQUE: ??The procedure for ultrasound-guided core biopsy was explained to and discussed with the patient. Risks were explained to include, but not be limited to, hemorrhage, infection, injury to adjacent organs, non-diagnostic specimen and adverse reaction to medications administered. The patient voiced understanding and wished to proceed and signed the consent form. CORE BIOPSY: ??The liver was evaluated using sonography and an appropriate site was localized for core biopsy. The patient's overlying skin was prepped and draped in the usual sterile fashion. Local anesthesia was achieved via subcutaneous and deep administration with 6 mL of Lidocaine 1%. Under realtime ultrasound guidance, 1 pass was made with an 18 gauge BioPince core biopsy needle, 3.3 cm throw, with the use of a 17 gauge introducer needle. The core specimen was placed in formalin and hand delivered to Surgical Pathology for evaluation. The patient's skin was cleaned and dressed. The patient tolerated the entire procedure well without immediate complications. Dr. Jason Calderon M.D., the attending radiologist, was present from the beginning to the end of the procedure. Dr. Nikolai Vela performed the biopsy. 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 Recently biopsied liver lesion returning necrosis. Background liver biopsy requested. COMPARISON: Liver MRI for 11/20/2019, liver MRI for 2019, CT abdomen/pelvis 04/05/2020, and prior ultrasound-guided biopsy 02/02/2020. FINDINGS: Limited sonographic evaluation of the abdomen revealed an orthotopic liver transplantation as seen on multiple imaging modalities. TECHNIQUE: The procedure for ultrasound-guided core biopsy was explained to and discussed with the patient. Risks were explained to include, but not be limited to, hemorrhage, infection, injury to adjacent organs, non-diagnostic specimen and adverse reaction to medications administered. The patient voiced understanding and wished to proceed and signed the consent form. CORE BIOPSY: The liver was evaluated using sonography and an appropriate site was localized for core biopsy. The patient's overlying skin was prepped and draped in the usual sterile fashion. Local anesthesia was achieved via subcutaneous and deep administration with 6 mL of Lidocaine 1%. Under realtime ultrasound guidance, 1 pass was made with an 18 gauge BioPince core biopsy needle, 3.3 cm throw, with the use of a 17 gauge introducer needle. The core specimen was placed in formalin and hand delivered to Surgical Pathology for evaluation. The patient's skin was cleaned and dressed. The patient tolerated the entire procedure well without immediate complications. Dr. Jason Calderon M.D., the attending radiologist, was present from the beginning to the end of the procedure. Dr. Nikolai Vela performed the biopsy. IMPRESSION: 1. Successful ultrasound-guided liver parenchyma core needle biopsy. 2. Please see separate Surgical Pathology results for final interpretation. Dictated by: Nikolai Vela M.D. The radiology attending physician has personally reviewed this study, and had reviewed and/or edited this written report and agrees with it. Electronically signed by: Jason Calderon M.D. us Theodore Gresham MD IMG US PROCEDURES Final Re sult documented in this encounter Visit Diagnoses Diagnosis History of liver transplant (CMS/HCC) (HCC)- Primary Liver replaced by transplant LFT elevation History of liver transplant (CMS/HCC) (HCC) Liver replaced by transplant LFT elevation documented in this encounter Care Teams Medical Front Desk Coordinator Relationship Specialty Start Date End Date Guero Colunga DO PCP - General Internal Medicine 03/22/19 04/18/23 Amber Montesinos RN Horticultural Services Supervisor Transplant 11/17/19 Jil Duncan MD Consulting Physician Infectious Diseases 01/10/20 documented as of this encounter
--- OUTSIDE RECORDS SUMMARY | 2024-10-28 06:19 | XMS_ITS | Encounter Summary ---
Author Organization [facility] Address [address] [place] [address] Phone Care Team Providers Care Strapper Operator Name Role Phone Guero Colunga DO Primary Care Provider [phone] Amber Montesinos RN Unavailable [phone] Jil Duncan MD Unavailable [phone] Encounter Details Date Type Department Care Team (Latest Contact Info) Description 06/12/2020 8:15 AM CDT Office Visit [facility] Oncology [facility] 7th [place] [address] [place] [address] 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) Social History Tobacco Use Types Packs/Day Years Used Date Smoking Tobacco: Never Smokeless Tobacco: Never Alcohol Use Standard Drinks/Week Comments Yes 0 (1 standard drink = 0.6 oz pur e alcohol) occassional Sex and Gender Information Value Date Recorded Sex Assigned at Not on file Legal 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 Gender Identity Not on file Sexual Orientation Straight 08/22/2021 9: 23 AM CDT documented as of this encounter Last Filed Vital Signs Vital Sign Reading Time Taken Comments Blood Pressure 101/66 06/12/2020 7:55 AM CDT Pulse 72 06/12/2020 7:55 AM CDT Temperature 36.4 ??C (97.6 ??F) 06/12/2020 7:55 AM CD T Respiratory Rate 18 06/12/2020 7:53 AM CDT Oxygen Saturation 97% 06/12/2020 7:55 AM CDT Inhaled Oxygen Concentration - - Weight 56.9 kg (125 lb 6.4 oz) 06/12/2020 7:53 A M CDT Height - - Body Mass Index 19.07 05/14/2020 11:46 AM CDT documented in this encounter Progress Notes * Chapo Cabezas MD - 06/12/2020 12:00 AM CDT PATIENT NAME: ADI NICHOLS : 1995 JUSTEN: 06/12/2020 DIAGNOSES: 1. 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 5. Biopsy of 2.7cm hyperenhancing lesion in liver on 02/02/2020, demonstrated necrosis and chronic inflammation. Repeat MRI wiht slight decrease in size. CT scan of liver 04/05/2020 with continued decrease in size of his liver 6. Biopsy of background liver 05/14/2020 with T-cell predominant inflammatory infiltration without evidence of B or T-cell lymphoma INTERVAL HISTORY: Mr. Nichols returns to the [facility] for continued follow-up of his PTLD. He was last seen 03/13/2020. He completed a course of IV ganciclovir for his low-level CMV viremia, although it hasrecently become detectable again, although at a low level. He is not taking valgancyclovir. He had a biopsy performed in the normal background liver on 05/14/2020. The biopsy showed sinusoidal T-cellpredominant inflammatory infiltrate and a foci of lobular lymphoid aggregates and micro granulomas.It was reviewed in conjunction with hematopathology and immunohistochemistry was performed demonstrating rare small B-cells stained by CD20, CD3 staining, small T-cells with retained expression of CD2, CD5, CD7 and a normal CD4 to CD8 ratio and JAKOB in situ hybridization was negative. Therefore, the findings were consistent with a T-cell predominant inflammatory infiltrate without evidence of a Bor T-cell lymphoma. Overall, he feels well. He has no fevers, chills, or night sweats. He believes his weight and appetite have been stable. He doesn't notice any of his lymphadenopathy. He denies any pain. MEDICATIONS: 1. Tacrolimus 0.5mg BID PHYSICAL EXAMINATION: Performance Status: 0 General: This is a well-appearing gentleman, resting comfortably. Vital Signs: BP 101/66, P 72, R 18, T 36.4C, 97% on RA, Wt 56.9kg Lungs: Clear to auscultation. Heart: Regular rate [...] node in the anterior and a second suprior to that that is about cm, a 1.5 right axilla lymph node, and several 1 cmleft inguinal lymph nodes and right inguinal lymph nodes. Abdomen: Soft, nontender. No hepatosplenomegaly. Extremities: No edema. Skin: Without rashes or lesions. LABORATORY DATA: CMP with alk phos of 934, GGT 269, WBC 13.7, Hgb 15.2, Platelet 271, ANC 5700 CMV DNAemia at 590 IU/ml on 05/14/2020 IMAGING: He had a 3-phase CT of his abdomen and pelvis on 04/05/2020, which demonstrated interval decrease in the size of a 4B lesion in his liver, likely representing an infectious process or abscess measuring 1.1 x 0.8 cm, previously 2.3 cm. No new lesions identified and stable abdominal lymphadenopathy. PATHOLOGY: Liver biopsy from 05/14/2020: T-cell predominant infilammatory infiltrate, are small B-cells stainedby CD20, CD3 staining, small T-cells with retained expression of CD2, CD5, CD7 and a normal CD4 to CD8 ratio and JAKOB in situ hybridization was negative. ASSESSMENT AND PLAN: 1. History of c-MYC positive posttransplant lymphoproliferative disorder, Nadine-De La Cruz Virus positive, stage EMY, IPI 3, stage LDH extranodal site: This is a 25-year-old man who is now almost 3 yearsstatus post dose-adjusted EPOCH-R. While he continues to have diffuse lymphadenopathy, this appearsrelatively unchanged and recent biopsies have shown only follicular hyperplasia. He did have recentabdominal imaging, which shows that his lymphadenopathy is stable. His liver biopsy from May showed only T-cell inflammation, no evidence of lymphoma. This was reviewed in lymphoma conference. We will continue to hold off on PET imaging at this time, but we will have a low threshold for repeating a PET, should he have any new symptoms. 2. History of liver transplant: He remains on tacrolimus 0.5mg twice daily. He has a resolving lesion in his liver and some evidence of T-cell mediated inflammation. He continues to follow with hepatology. 3. Distant history of pulmonary emboli: He is no longer on anticoagulation. 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 He does continue to have low-level CMV viremia although without evidence of organ disease. He is not taking oral valgancyclovir. His CMV level is pending from today. 5. Follow up. We will see him back in 3 months. He will be seeing hepatology at that time as well. He knows to call with questions or concerns. ELECTRONICALLY SIGNED - 06/12/2020 08:48 AM Chapo Cabezas M.D. Fellow I have seen and examined the patient and agree with the findings and plan of care as documented by and/or discussed with Chapo Cabezas M.D.. ELECTRONICALLY SIGNED - 06/22/2020 12:23 PM Anita Gillespie M.D. fourchette sewer Emily Chair in Medical Oncology SRG/SREEDHAR/jose cc: LENO AGUSTIN MD [address] [facility] [address], [place] [address] GUERO COLUNGA DO [address] [place] [address] / LINDA CHAPA MD 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) Expected: 09/11/2020 (Approximate), Expires: 06/10/2021 Scheduled Procedures Name Priority Associated Diagnoses Date/Ti me COLONOSCOPY Encounter for screening for colorectal cancer in high risk patient Family history of rectal cancer documented as of this encounter Visit Diagnoses Diagnosis 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
--- OUTSIDE RECORDS SUMMARY | 2024-10-28 06:19 | XMS_ITS | Encounter Summary ---
Author Organization [facility] Address [address] [place] [address] Phone Care Team Providers Care Drive Tester Name Role Phone Guero Colunga DO Primary Care Provider [phone] Amber Montesinos RN Unavailable [phone] Jil Duncan MD Unavailable [phone] Encounter Details Date Type Department Care Team (Late st Contact Info) Description 09/18/2020 Telephone [facility] [address] [facility] 6th [place] [address] [place] [address] Ria Lopez, CARMEL Social History Tobacco Use Types Packs/Day Years Used Date Smoking Tobacco: Never Smokeless Tobacco: Never Alcohol Use Standard Drinks/Week Comments Yes 0 (1 standard drink = 0.6 oz pur e alcohol) occassional Sex and Gender Information Value Date Recorded Sex Assigned at Not on file Legal Sex Male 6:28 AM FOOD GENERAL MANAGER Gender Identity Not on file Sexual Orientation Straight 08/22/2021 9: 23 AM CDT documented as of this encounter Miscellaneous Notes * Telephone Encounter - Glroia Palmer BS - 09/30/2020 3:21 PM FOOD GENERAL MANAGER Left message to schedule patient Thanks GENERAL MANAGER * Telephone Encounter - Ria Lopez DC - 09/25/2020 12:47 PM FOOD GENERAL MANAGER I don't think we were supposed to receive them. He was just going to self quarantine if they were positive. He can let you know when you call to schedule. We don't need the results for this biopsy asfar as I know. GENERAL MANAGER * Telephone Encounter - Gloria Palmer BS - 09/23/2020 8:13 AM FOOD GENERAL MANAGER Hi Ria, I do not see that we received the Dunbar Virus test results. Thanks GENERAL MANAGER * Telephone Encounter - Jason See RN - 09/19/2020 3:46 PM CST I think it was an outside hospital test GENERAL MANAGER * Telephone Encounter - Gloria Palmer BS - 09/19/2020 3:25 PM FOOD GENERAL MANAGER I do not see the results for Dunbar Virus. Can someone please double check for me. Thanks GENERAL MANAGER * Telephone Encounter - Ria Lopez DC - 09/19/2020 9:27 AM FOOD GENERAL MANAGER Gloria (or Mona?) can you call him and try and schedule a needle muscle biopsy with Dr. Panchal and EMG? He had dunbar virus testing yesterday so if it was positive of course he will need to wait 2 weeks. And tell him to go to the lab while he is here. Patient is aware these tests are needed.Orders are in. Thank you! Ria GENERAL MANAGER * Telephone Encounter - Hans Mendes MD PhD - 09/19/2020 7:59 AM FOOD GENERAL MANAGER See message When/if safe to come in I think he needs: Enterovirus PCR on blood (may need to do this on CSF as well), and this is ordered EMG-NCS Needle muscle biopsy with Roberto so as to hasten getting this done (pending Roberto's availability), potentially could be done the same day as the EMG-NCS if we time it right After the above are captured I would recommend we start IVIg but I would want Anita and hepatology to be on board with that GENERAL MANAGER * Telephone Encounter - Ria Lopez DC - 09/18/2020 3:54 PM FOOD GENERAL MANAGER Called patient about coming in for EMG and labs tomorrow. Patient just got tested for COVID, results should be available in 24-48 hours. Patient's dad was exposed to a coworker who had covid. Patient and dad have not had symptoms but whole family just got tested. Explained if dad is asymptomatic he is likely ok to come in, but sounds like he would prefer to wait until covid test results to come back in. He would possibly be able to come in Wednesday. GENERAL MANAGER * Telephone Encounter - Ria Lopez DC - 09/18/2020 3:52 PM FOOD GENERAL MANAGER ----- Message from Hans Mendes MD PhD sent at 09/18/2020 2:38 PM FOOD GENERAL MANAGER ----- Regarding: follow up Hi Ria Given some of his lab results I would like to have him come back for an EMG and a potential muscle biopsy. He also needs to get a lab drawn that was entered late and was missed. Any chance he could come in tomorrow am for EMG and to get the lab drawn? Based on the EMG we can discuss and coordinate another visit for a biopsy. It is even possible that Roberto may be able to biopsy him this week, if the patient is open to it I can email Roberto. If Roberto could biopsy him on Wednesday then we could even perhaps wait and do his EMG Wednesday and have him get the lab Wednesday too. Let me know if him and his mother are up for coming back. Thanks Karri GENERAL MANAGER documented in this encounter Plan of Treatment Scheduled Procedures Name Priority Associated Diagnoses Date/Ti me COLONOSCOPY Encounter for screening for colorectal cancer in high risk patient Family history of rectal cancer documented as of this encounter Visit Diagnoses Not on filedocumented in this encounter Care Teams Drive Tester Relationship Specialty Start Date End Date Guero Colunga DO PCP - General Internal Medicine 03/22/19 04/18/23 Amber Montesinos, SHAILESH Putty Remover Transplant 11/17/19 Jil Duncan MD Consulting Physician Infectious Diseases 01/10/20 documented as of this encounter
--- OUTSIDE RECORDS SUMMARY | 2024-10-28 06:19 | XMS_ITS | Encounter Summary ---
Author Organization [facility] Address [address] [place] [address] Care Team Providers Care Level Glass Forming Machine Operator Name Role Phone Guero Colunga DO Primary Care Provider [phone] Amber Montesinos RN Unavailable [phone] Jil Duncan MD Unavailable [phone] Encounter Details Date Type Department Care Team (Late st Contact Info) Description 05/17/2020 Telephone [facility] Trans[facility] Liver [address] [facility] [id number] [place] [address] Amber Montesinos RN Social History Tobacco Use Types Packs/Day Years Used Date Smoking Tobacco: Never Smokeless Tobacco: Never Alcohol Use Standard Drinks/Week Comments Yes 0 (1 standard drink = 0.6 oz pur e alcohol) occassional Sex and Gender Information Value Date Recorded Sex Assigned at Not on file Legal Sex Male 6:28 AM AUTOMATIC SCREWMAKER Gender Identity Not on file Sexual Orientation Straight 08/22/2021 9: 23 AM CDT documented as of this encounter Miscellaneous Notes * Telephone Encounter - Amber Vargas RN - 05/17/2020 10:24 AM CDT Patient reviewed in pathology conference: -Scattered lobular inflammation and microgranulomas -Sinusoidal lymphocytes - Bile ducts look good Impression: nonspecific inflammation; not consistent with ACR; pending CMV staining and lymphoproliferative staining by heme-path Resulted reviewed with Dr. Gresham. Pathology sent to Dr. Gillespie. She will review Wednesday. Placed call to patient's mother to inform her that there was no ACR but we would like Dr. Gillespie to review and we will update her. Reviewed CMV infection with Lisandra from ID. Patient complaining of more achiness in his joints/hands. Per Lisandra, this should not be related to his CMV level since it is a low level. If he has any worsening complaints, we will inform ID office. Reviewed with mom- she will let us know. New standing order sent to [employer] (ok from ID to return to normal lab). documented in this encounter Plan of Treatment Scheduled Orders Name Type Priority Associated Diagnoses Orde r Schedule CBC with auto differential Lab Routine History of liver transplant (CMS/HCC) every 4 weeks for 20 Occurrences starting 05/17/2020 until 05/17/2021 Comprehensive metabolic panel Lab Routine History of liver transplant (CMS/HCC) every 4 weeks for 20 Occurrences starting 05/17/2020 until 05/17/2021 Gamma GT Lab Routine History of liver transplant (CMS/HCC) every 4 weeks for 20 Occurrences starting 05/17/2020 until 05/17/2021 Tacrolimus level trough Lab Routine History of liver transplant (CMS/HCC) every 4 weeks for 20 Occurrences starting 05/17/2020 until 05/17/2021 CMV DNA QN, PCR Blood Microbiology Routine History of liver transplant (CMS/HCC) Cytomegalovirus infection, unspecified cytomegaloviral infection type (CMS/HCC) every 4 weeks for 20 Occurrences starting 05/17/2020 until 05/17/2021 Scheduled Procedures Name Priority Associated Diagnoses Date/Ti me COLONOSCOPY Encounter for screening for colorectal cancer in high risk patient Family history of rectal cancer documented as of this encounter Visit Diagnoses Diagnosis History of liver transplant (CMS/HCC) (HCC)- Primary Liver replaced by transplant Cytomegalovirus infection, unspecified cytomegaloviral infection type (HCC) documented in this encounter Care Teams Level Glass Forming Machine Operator Relationship Specialty Start Date End Date Guero Colunga DO PCP - General Internal Medicine 03/22/19 04/18/23 Amber Montesinos, SHIALESH Retail Sales Manager Transplant 11/17/19 Jil Duncan MD Consulting Physician Infectious Diseases 01/10/20 documented as of this encounter
--- OUTSIDE RECORDS SUMMARY | 2024-10-28 06:19 | XMS_ITS | Encounter Summary ---
Author Organization [facility] Address [address] [place] [address] Phone Care Team Providers Care Provider Engagement Executive Name Role Phone Guero Colunga DO Primary Care Provider [phone] Amber Montesinos RN Unavailable [phone] Jil Duncan MD Unavailable [phone] Encounter Details Date Type Department Care Team (Late st Contact Info) Description 09/11/2020 Telephone [facility] Oncology [facility] 7th [place] [address] [place] [address] Samreen Greene RN Social History Tobacco Use Types Packs/Day Years Used Date Smoking Tobacco: Never Smokeless Tobacco: Never Alcohol Use Standard Drinks/Week Comments Yes 0 (1 standard drink = 0.6 oz pur e alcohol) occassional Sex and Gender Information Value Date Recorded Sex Assigned at Not on file Legal Sex Male 6:28 AM ELECTRIC NEEDLE SPECIALIST Gender Identity Not on file Sexual Orientation Straight 08/22/2021 9: 23 AM CDT documented as of this encounter Miscellaneous Notes * Telephone Encounter - Samreen Greene RN - 09/11/2020 2:32 PM ELECTRIC NEEDLE SPECIALIST Brooklynn called on behalf of Beka. Beka has been reporting weakness and pain/soreness in his shoulders and knees. She states he is walking around like a 68 year old man. He has noticeable decrease instrength of his arms. He also reports numbness in his hands and his unable to make a full fist. He can button buttons and open a jar, but it will take him a bit to do. He shared that he cannot raise his arm fully up, but this is improving. He denies any signs of infection and states he has LN wax and wane, but do not stay long. Brooklynn shared that with their line of cancer she just worries what these symptoms may mean. She also inquired if the IV ganciclovir could cause these issues. Will touch sandeep wynne with Dr. Gillespie and Dr. Gresham for guidance and reach back out to patient and his mom. TRIC NEEDLE SPECIALIST documented in this encounter Plan of Treatment Scheduled Procedures Name Priority Associated Diagnoses Date/Ti me COLONOSCOPY Encounter for screening for colorectal cancer in high risk patient Family history of rectal cancer documented as of this encounter Visit Diagnoses Not on filedocumented in this encounter Care Teams Provider Engagement Executive Relationship Specialty Start Date End Date Guero Colunga DO PCP - General Internal Medicine 03/22/19 04/18/23 Amber Montesinos RN Weaving Supervisor Transplant 11/17/19 Jil Duncan MD Consulting Physician Infectious Diseases 01/10/20 documented as of this encounter
--- OUTSIDE RECORDS SUMMARY | 2024-10-28 06:19 | XMS_ITS | Encounter Summary ---
Author Organization [facility] Healthcare Address [address] [place] [address] Care Team Providers Care Motel Manager Name Role Phone Guero Colunga Primary Care Provider [phone] Amber Montesinos RN Unavailable [phone] Jil Duncan MD Unavailable [phone] Encounter Details Date Type Department Care Team (Late st Contact Info) Description 07/23/[address] [facility] Transplant Liver [address] [facility] [phone] [place] [address] Eli Brink Social History Tobacco Use Types Packs/Day Years Used Date Smoking Tobacco: Never Smokeless Tobacco: Never Alcohol Use Standard Drinks/Week Comments Yes 0 (1 standard drink = 0.6 oz pur e alcohol) occassional Sex and Gender Information Value Date Recorded Sex Assigned at Not on file Legal Sex Male 6:28 AM SOFTWARE TOOLS DEVELOPER Gender Identity Not on file Sexual Orientation Straight 08/22/2021 9: 23 AM CDT documented as of this encounter Miscellaneous Notes * Telephone Encounter - Rafal Brown - 09/18/2020 11:43 AM CST CPT 06051 was approved. 09/18/2020-11/02/2020 Auth# [id number] WARE TOOLS DEVELOPER * Telephone Encounter - Eli Brink - 07/23/2020 9:38 AM CDT Are there any changes to insurance? If there is a change, please indicate the new insurance details below. If it is unchanged to what is already in Epic, simply warren each with N/A Primary Insurance: Patient ID#: Group#: Insurance Phone#: ?? Radiology Test Request Details ?? Need pre-cert for: CT Abdomen 3 Phase Ordering physician: Theodore Gresham CPT Code: 90912 CPT Code description: CT Abdomen 3 Phase ICD-10 Code: Z94.4; K75.0; R79.89 ICD-10 Code description: history of liver transplant; liver abscess; elevated liver enzymes ?? Patient is having test due to: s.p liver transplant with hx of area of necrosis/abscess on prior imaging. F/u imaging to ensure resolution of previous lesion Complications patient is having: s.p liver transplant with hx of area of necrosis/abscess on prior imaging. F/u imaging to ensure resolution of previous lesion Testing is to rule out the following: s.p liver transplant with hx of area of necrosis/abscess on prior imaging. F/u imaging to ensure resolution of previous lesion Facility/Location test will be done: [facility] Date test will be done: 10/02/2020 documented in this encounter Plan of Treatment Scheduled Procedures Name Priority Associated Diagnoses Date/Ti mi COLONOSCOPY Encounter for screening for colorectal cancer in high risk patient Family history of rectal cancer documented as of this encounter Visit Diagnoses Not on filedocumented in this encounter Care Teams Motel Manager Relationship Specialty Start Date End Date Guero Colunga DO PCP - General Internal Medicine 03/22/19 04/18/23 Amber Montesinos, SHAILESH Lawn Service Supervisor Transplant 11/17/19 Jil Duncan MD Consulting Physician Infectious Diseases 01/10/20 documented as of this encounter
--- OUTSIDE RECORDS SUMMARY | 2024-10-28 06:19 | XMS_ITS | Encounter Summary ---
Author Organization [facility] Healthcare Address [address] [place] [address] Care Team Providers Care Psychiatric Security Nurse Name Role Phone Guero Colunga Primary Care Provider [phone] Amber Montesinos RN Unavailable [phone] Jil Duncan MD Unavailable [phone] Encounter Details Date Type Department Care Team (Late st Contact Info) Description 05/07/2020 Telephone [facility] Transplant Liver [address] [facility] [address] [phone] [place], [place] [id number] Amber Montesinos RN Social History Tobacco Use Types Packs/Day Years Used Date Smoking Tobacco: Never Smokeless Tobacco: Never Alcohol Use Standard Drinks/Week Comments Yes 0 (1 standard drink = 0.6 oz pur e alcohol) occassional Sex and Gender Information Value Date Recorded Sex Assigned at Not on file Legal Sex Male 6:28 AM LENS BLOCKER Gender Identity Not on file Sexual Orientation Straight 08/22/2021 9: 23 AM CDT documented as of this encounter Miscellaneous Notes * Telephone Encounter - Amber Vargas RN - 05/07/2020 12:48 PM CDT Received call from Ileana with IR to review patient's biopsy. Patient is scheduled for 05/14 at 11:00am. His arrival time is 10:00am. He should have nothing to eat or drink for 4 hours prior to the procedure. Placed follow up call to Ileana regarding patient's labs. Patient will arrive to admitting toget blood work done prior to his biopsy. They would need a CBC and PT/INR. Have also added a CMV PCR. Patient has been driving to [facility] to get this level checked so that it is consistent for review (was previously being done at [facility]). Have sent epic message to Lisandra with ID to let her know. Called and spoke with Brooklynn to inform her about upcoming biopsy date, time, and details. They are aware they will need to let admitting know that patient should get labs done there before his procedure. Patient just recently had a biopsy done so they are aware of location and COVID prescreening steps. documented in this encounter Plan of Treatment Scheduled Procedures Name Priority Associated Diagnoses Date/Ti me COLONOSCOPY Encounter for screening for colorectal cancer in high risk patient Family history of rectal cancer documented as of this encounter Results * (ABNORMAL) Cytomegalovirus (CMV) DNA PCR, quantitative Blood (05/14/2020 9:27 AM CDT) CMV DNA Detected( A) [facility] Comment: Interpretive Data: The quantifiable range of this assay is 137 IUnits/mL to 9,100,000 IUnits/mL (2.14 log IUnits/mL to 6.96 log IUnits/mL). Testing was performed by the NIA AmpliPrep/NIA TaqMan CMV Test ([employer] Testing performed at [facility] Current interpretive data was last revised on 17. CMV DNA IU/mL 590 IUnits/mL [facility] CMV DNA log IU/mL 2.77 log IUnits/mL [facility] Blood specimen (specimen) 05/14/2020 9:27 AM CDT 05/14/2020 12:55 PM CDT Narrative [facility] - 05/14/2020 11:42 PM CDT Please draw 05/14 before patient's biopsy scheduled for 11:00am. us Theodore Gresham MD LAB MICROBIOLOGY - GENERAL ORDERABLES Final Result Performing Organization Address [facility] Co de Phone Number [facility] Department [place] [address] * Protime-INR (05/14/2020 9:27 AM CDT) PT 10.4 8.6 - 13.0 sec [facility] INR 1.0 0.8 - 1.2 [facility] Comment: Interpretive data Oral anticoagulant therapeutic ranges: Venous thromboembolism prophylaxis or treatment: 2.0-3.0 CARDIOLOGY Standard range: 2.0-3.0 High-intensity range: 2.5-3.5 Refer to indication-specific guidelines for appropriate target ranges for prosthetic heart valve replacement. Current interpretive data was last revised on 2019. Blood specimen (specimen) 05/14/2020 9:27 AM CDT 05/14/2020 9:43 AM CDT Narrative [facility] - 05/14/2020 10:06 AM CDT Please draw 05/14 before patient's biopsy scheduled for 11:00am. Theodore Gresham MD LAB BLOOD ORDERABLES Final Result Performing Organization Address [facility] Co de Phone Number [facility] Department [place] [address] documented in this encounter Visit Diagnoses Diagnosis History of liver transplant (CMS/HCC) (HCC)- Primary Liver replaced by transplant Elevated liver enzymes Other nonspecific abnormal serum enzyme levels History of liver transplant (CMS/HCC) (HCC) Liver replaced by transplant Elevated liver enzymes Other nonspecific abnormal serum enzyme levels documented in this encounter Care Teams Psychiatric Security Nurse Relationship Specialty Start Date End Date Guero Colunga DO PCP - General Internal Medicine 03/22/19 04/18/23 Amber Montesinos RN Supervisor Contingents Transplant 11/17/19 Jil Duncan MD Consulting Physician Infectious Diseases 01/10/20 documented as of this encounter
--- OUTSIDE RECORDS SUMMARY | 2024-10-28 06:19 | XMS_ITS | Encounter Summary ---
Author Organization [facility] Healthcare Address [address] [place] [address] Care Team Providers Care Early Childhood Director Name Role Phone Guero Colunga Primary Care Provider [phone] Amber Montesinos RN Unavailable [phone] Jil Duncan MD Unavailable [phone] Encounter Details Date Type Department Care Team (Late st Contact Info) Description 05/14/2020 9:30 AM CDT Lab [facility] [address] [facility] 1st [place] [id number] History of liver transplant (CMS/HCC); Elevated liver enzymes Social History Tobacco Use Types Packs/Day Years Used Date Smoking Tobacco: Never Smokeless Tobacco: Never Alcohol Use Standard Drinks/Week Comments Yes 0 (1 standard drink = 0.6 oz pur e alcohol) occassional Sex and Gender Information Value Date Recorded Sex Assigned at Not on file Legal Sex Male 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 We can monitor with monthly labs from now on. You can cc me on the CMV results. Let me know if you have any concerns in the meantime. We won't schedule him for follow up but will be happy to see him if any issues arise. documented in this encounter Plan of Treatment Scheduled Procedures Name Priority Associated Diagnoses Date/Ti me COLONOSCOPY Encounter for screening for colorectal cancer in high risk patient Family history of rectal cancer documented as of this encounter Procedures Procedure Name Priority Date/Time Associated Diagnosis Comments DIFFERENTIAL AUTO Routine 05/14/2020 10: 36 AM CDT History of liver transplant (CMS/HCC) CBC WITH AUTO DIFFERENTIAL Routine 05/14/2020 10:36 AM CDT History of liver transplant (CMS/HCC) COMPREHENSIVE METABOLIC PANEL Routine 05/14/2020 9:28 AM CDT History of liver transplant (CMS/HCC) CYTOMEGALOVIRUS (CMV) DNA, QUANT GEN LAB Routine 05/14/2020 9:27 AM CDT History of liver transplant (CMS/HCC) Elevated liver enzymes PROTIME-INR Routine 05/14/2020 9:27 AM CDT History of liver transplant (CMS/HCC) Elevated liver enzymes documented in this encounter Results * (ABNORMAL) Differential, auto (05/14/2020 10:36 AM CDT) Neutrophil abs 5.8 1.7 - 6.5 K/cumm [facility] Imm gran abs 0.0 0.0 - 0.1 K/cumm [facility] Lymphocyte abs 5.2(H) 0.8 - 3.3 K/cumm [facility] Monocyte abs 2.4(H) 0.2 - 0.8 K/cumm [facility] Eosinophil abs 1.3(H) 0.0 - 0.5 K/cumm [facility] Basophil abs 0.1 0.0 - 0.1 K/cumm [facility] Neutrophil pct 39.0 % [facility] Comment: Confirmed by smear review Interpretive Data Percent cell count reference ranges are not reported, since discordance with absolute values may lead to misinterpretation of CBC data. Current Interpretive Data was last revised on 2018. Imm gran pct 0.3 % [facility] Comment: Interpretive Data Percent cell count reference ranges are not reported, since discordance with absolute values may lead to misinterpretation of CBC data. Current Interpretive Data was last revised on 2018. Lymphocyte pct 34.9 % [facility] Comment: Interpretive Data Percent cell count reference ranges are not reported, since discordance with absolute values may lead to misinterpretation of CBC data. Current Interpretive Data was last revised on 2018. Monocyte pct 16.5 % [facility] Comment: Interpretive Data Percent cell count reference ranges are not reported, since discordance with absolute values may lead to misinterpretation of CBC data. Current Interpretive Data was last revised on 2018. Eosinophil pct 8.7 % [facility] Comment: Interpretive Data Percent cell count reference ranges are not reported, since discordance with absolute values may lead to misinterpretation of CBC data. Current Interpretive Data was last revised on 2018. Basophil pct 0.6 % [facility] Comment: Interpretive Data Percent cell count reference ranges are not reported, since discordance with absolute values may lead to misinterpretation of CBC data. Current Interpretive Data was last revised on 2018. Blood specimen (specimen) 05/14/2020 10:36 AM CDT 05/14/2020 10:51 AM CDT Theodore Gresham MD LAB BLOOD ORDERABLES Final Result [facility] Department [place] [address] * (ABNORMAL) CBC with auto differential (05/14/2020 10:36 AM CDT) WBC 14.8(H) 3.8 - 9.9 K/cumm [facility] Hgb 16.2 13.0 - 17.5 g/dL [facility] Hct 45.9 38.9 - 50.3 % [facility] Plt 260 150 - 400 K/cumm [facility] MPV 9.7 9.1 - 12.3 fL [facility] RBC 4.83 4.30 - 5.80 M/cumm [facility] MCV 95.0 81.3 - 96.4 fL [facility] MCH 33.5(H) 27.1 - 33.3 pg [facility] MCHC 35.3 32.3 - 35.7 g/dL [facility] RDW CV 14.6 11.1 - 14.9 % [facility] RDW SD 51.7(H) 35.7 - 48.1 fL [facility] NRBC abs 0.00 0.00 - 0.01 K/cumm [facility] Blood specimen (specimen) 05/14/2020 10:36 AM CDT 05/14/2020 10:51 AM CDT Theodore Gresham MD LAB BLOOD ORDERABLES Final Result [facility] Department [place] [address] * (ABNORMAL) Comprehensive metabolic panel (05/14/2020 9:28 AM CDT) Sodium 142 135 - 145 mmol/L [facility] Potassium, pl 4.8 3.3 - 4.9 mmol/L [facility] Chloride 107 97 - 110 mmol/L [facility] CO2 26 22 - 32 mmol/L [facility] Anion gap 9 2 - 15 mmol/L [facility] BUN 7(L) 8 - 25 mg/dL [facility] Creatinine 0.92 0.80 - 1.30 mg/dL [facility] Glucose 97 70 - 199 mg/dL [facility] Comment: Interpretive Data Fasting glucose >/= [...] interpretive data was last revised 2017. Calcium 9.3 8.5 - 10.3 mg/dL [facility] Bilirubin, total 0.5 0.1 - 1.2 mg/dL [facility] Protein, pl 6.3(L) 6.5 - 8.5 g/dL [facility] Albumin 4.4 3.5 - 5.0 g/dL [facility] Alk phos 408(H) 40 - 130 Units/L [facility] ALT 47 7 - 55 Units/L [facility] AST 43 10 - 50 Units/L [facility] Blood specimen (specimen) 05/14/2020 9:28 AM CDT 05/14/2020 9:51 AM CDT us Theodore Gresham MD LAB BLOOD ORDERABLES Final Result Performing Organization Address [facility] Co de Phone Number [facility] Department [place] [address] * Protime-INR (05/14/2020 9:27 AM CDT) PT 10.4 8.6 - 13.0 sec [facility] INR 1.0 0.8 - 1.2 [facility] Comment: Interpretive data Oral anticoagulant therapeutic ranges: Venous thromboembolism prophylaxis or treatment: 2.0-3.0 CARDIOLOGY Standard range: 2.0-3.0 High-intensity range: 2.5-3.5 Refer to indication-specific guidelines for appropriate target ranges for prosthetic heart valve replacement. Current interpretive data was last revised on 2019. Blood specimen (specimen) 05/14/2020 9:27 AM CDT 05/14/2020 9:43 AM CDT [facility]ative [facility] - 05/14/2020 10:06 AM CDT Please draw 05/14 before patient's biopsy scheduled for 11:00am. us Theodore Gresham MD LAB BLOOD ORDERABLES Final Result Performing Organization Address [facility]/ZIP Co de Phone Number [facility] Department [place] [address] * (ABNORMAL) Cytomegalovirus (CMV) DNA PCR, quantitative Blood (05/14/2020 9:27 AM CDT) CMV DNA Detected( A) [facility] Comment: Interpretive Data: The quantifiable range of this assay is 137 IUnits/mL to 9,100,000 IUnits/mL (2.14 log IUnits/mL to 6.96 log IUnits/mL). Testing was performed by the NIA AmpliPrep/NIA TaqMan CMV Test ([employer] Testing performed at [facility] Current interpretive data was last revised on 17. CMV DNA IU/mL 590 IUnits/mL [facility] CMV DNA log IU/mL 2.77 log IUnits/mL [facility] Blood specimen (specimen) 05/14/2020 9:27 AM CDT 05/14/2020 12:55 PM CDT Narrative [facility] - 05/14/2020 11:42 PM CDT Please draw 05/14 before patient's biopsy scheduled for 11:00am. us Theodore Gresham MD LAB MICROBIOLOGY - GENERAL ORDERABLES Final Result [facility] Department [place] [address] documented in this encounter Visit Diagnoses Diagnosis History of liver transplant (CMS/HCC) (HCC) Liver replaced by transplant Elevated liver enzymes Other nonspecific abnormal serum enzyme levels documented in this encounter Care Teams Early Childhood Director Relationship Specialty Start Date End Date Guero Colunga DO PCP - General Internal Medicine 03/22/19 04/18/23 Amber Montesinos RN Mold Setter Transplant 11/17/19 Jil Duncan MD Consulting Physician Infectious Diseases 01/10/20 documented as of this encounter
--- OUTSIDE RECORDS SUMMARY | 2024-10-28 06:19 | XMS_ITS | Encounter Summary ---
Author Organization [facility] Healthcare Address [address] [place] [address] Care Team Providers Care Signals Intelligence Analyst Name Role Phone Guero Colunga Primary Care Provider [phone] Amber Montesinos RN Unavailable [phone] Jil Duncan MD Unavailable [phone] Encounter Details Date Type Department Care Team (Late st Contact Info) Description 09/20/2020 Telephone [facility] Transplant Liver [address] [facility] [address] [phone] [place], [place] [phone] Maryam Irene, RN [address] 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 Call to pt and made sure he was aware COVID was neg and pt is to have CMV DNA PCRQuant / Free T4 and Tacro trough drawn on the morning of 10/02. He asked if he can have these drawn on 7th floor in [facility] office. Advised he can and he writes these down. I added a CMP b/c I was not sure if Jose Miguel was getting one and told him to tell lab these are ordered under Dr. Gresham. He agrees. Primary Coordinator aware. ETL DEVELOPER documented in this encounter Plan of Treatment Scheduled Procedures Name Priority Associated Diagnoses Date/Ti me COLONOSCOPY Encounter for screening for colorectal cancer in high risk patient Family history of rectal cancer documented as of this encounter Visit Diagnoses Diagnosis Liver replaced by transplant (HCC)- Primary Liver replaced by transplant documented in this encounter Care Teams Signals Intelligence Analyst Relationship Specialty Start Date End Date Guero Colunga DO PCP - General Internal Medicine 03/22/19 04/18/23 Amber Montesinos, RN Sanforizer Transplant 11/17/19 Jil Duncan MD Consulting Physician Infectious Diseases 01/10/20 documented as of this encounter
--- OUTSIDE RECORDS SUMMARY | 2024-10-28 06:19 | XMS_ITS | Encounter Summary ---
Author Organization [facility] Address [address] [place] [address] Phone Care Team Providers Care Charge Authorizer Name Role Phone Guero Colunga DO Primary Care Provider [phone] Amber Montesinos RN Unavailable [phone] Jil Duncan MD Unavailable [phone] Encounter Details Date Type Department Care Team (Late st Contact Info) Description 09/13/2020 Telephone [facility] 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 Mendes had a cancellation for this coming Wednesday (09/16/20) at 10AM. I have asked that she call me back and let me know if this would work with their schedule. IER DRIVER documented in this encounter Plan of Treatment Scheduled Procedures Name Priority Associated Diagnoses Date/Ti me COLONOSCOPY Encounter for screening for colorectal cancer in high risk patient Family history of rectal cancer documented as of this encounter Visit Diagnoses Not on filedocumented in this encounter Care Teams Charge Authorizer Relationship Specialty Start Date End Date Guero Colunga DO PCP - General Internal Medicine 03/22/19 04/18/23 Amber Montesinos RN Edger Technician Transplant 11/17/19 Jil Duncan MD Consulting Physician Infectious Diseases 01/10/20 documented as of this encounter
--- OUTSIDE RECORDS SUMMARY | 2024-10-28 06:19 | XMS_ITS | Encounter Summary ---
Author Organization [facility] Address [address] [place] [address] Phone Care Team Providers Care Pet Food Deboner Name Role Phone Guero Colunga DO Primary Care Provider [phone] Amber Montesinos RN Unavailable [phone] Jil Duncan MD Unavailable [phone] Encounter Details Date Type Department Care Team (Late st Contact Info) Description 09/20/2020 Telephone [facility] 7th [place] [address] [place] [address] Samreen Greene RN Social History Tobacco Use Types Packs/Day Years Used Date Smoking Tobacco: Never Smokeless Tobacco: Never Alcohol Use Standard Drinks/Week Comments Yes 0 (1 standard drink = 0.6 oz pur e alcohol) occassional Sex and Gender Information Value Date Recorded Sex Assigned at Not on file Legal Sex Male 6:28 AM CERTIFIED PERSONAL FINANCE COUNSELOR Gender Identity Not on file Sexual Orientation Straight 08/22/2021 9: 23 AM CDT documented as of this encounter Miscellaneous Notes * Telephone Encounter - Samreen Greene RN - 09/20/2020 9:36 AM CERTIFIED PERSONAL FINANCE COUNSELOR Called to check in on Justin. [place] was glad to share that all their COVID results came back negative. She states Casandra did notice Beka's sclera were slightly jaundiced. Brooklynn could not see it until she put on her glasses and really looked. Advised that she should monitor this closely. If they notice a drastic change in this or yellowing of his skin they will call right away. Will reach out toDr. Gresham's office to let them know they can draw the remaining labs after seeing his elevated alk phos. Notified her that we will be rechecking CMV. We also discussed the plan to proceed with further nerve testing as soon as possible based upon his evaluation with Dr. Mendes. She will keep olive on her phone for a call from his office to arrange this. 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 We discussed that this helps to fight off infections. He often gets recurrent sinus infections, which should be improved once we start these infusions. We will give him IVIG once a month for a minimum of 6 doses. She is in agreement with this plan. She states he started feeling like his nose was choked up again a few days ago. We will work on scheduling this on a day that he isalready in the office to avoid having to make multiple trips. They know to call in the interim if any of his symptoms worsen or if they have any questions. IFIED PERSONAL FINANCE COUNSELOR documented in this encounter Plan of Treatment Scheduled Procedures Name Priority Associated Diagnoses Date/Ti me COLONOSCOPY Encounter for screening for colorectal cancer in high risk patient Family history of rectal cancer documented as of this encounter Visit Diagnoses Not on filedocumented in this encounter Care Teams Pet Food Deboner Relationship Specialty Start Date End Date Guero Colunga DO PCP - General Internal Medicine 03/22/19 04/18/23 Amber Montesinos RN Sheep Rancher Transplant 11/17/19 Jil Duncan MD Consulting Physician Infectious Diseases 01/10/20 documented as of this encounter
--- OUTSIDE RECORDS SUMMARY | 2024-10-28 06:19 | XMS_ITS | Encounter Summary ---
Author Organization [facility] Healthcare Address [address] [place] [address] Care Team Providers Care Lieutenant Colonel Name Role Phone Guero Colunga Primary Care Provider [phone] Amber Montesinos RN Unavailable [phone] Jil Duncan MD Unavailable [phone] Encounter Details Date Type Department Care Team (Late st Contact Info) Description 06/05/[address] 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 Gender Identity Not on file Sexual Orientation Straight 08/22/2021 9: 23 AM CDT documented as of this encounter Plan of Treatment Scheduled Procedures Name Priority Associated Diagnoses Date/Ti me COLONOSCOPY Encounter for screening for colorectal cancer in high risk patient Family history of rectal cancer documented as of this encounter Results * (ABNORMAL) Gamma GT (06/12/2020 7:50 AM CDT) GGT 269(H) 10 - 50 Units/L [facility] Comment:Testing performed by : [facility], [address] [place] [phone] Blood specimen (specimen) 06/12/2020 7:50 AM CDT 06/12/2020 7:51 AM CDT Narrative [facility] - 06/12/2020 8:13 AM CDT *Please draw along with Dr. Gillespie's labs on 06/12* us Theodore Gresham MD LAB BLOOD ORDERABLES Final Result [facility] [address] [facility] [place] [address] * (ABNORMAL) Comprehensive metabolic panel (06/12/2020 7:50 AM CDT) Pathologist [facility] Sodium 141 135 - 145 mmol/L [facility] Comment:Testing performed by : [facility], [address] [place] [phone] Potassium, pl 4.1 3.3 - 4.9 mmol/L [facility] Comment:Testing performed by : [facility], [address] [place] [phone] Chloride 105 97 - 110 mmol/L [facility] Comment:Testing performed by : [facility], [address] [place] [phone] CO2 27 22 - 32 mmol/L [facility] Comment:Testing performed by : [facility], [address] [place] [phone] Anion gap 9 2 - 15 mmol/L [facility] Comment:Testing performed by : [facility], [address] [place] [phone] BUN 7(L) 8 - 25 mg/dL [facility] Comment:Testing performed by : [facility], [address] [place] [phone] Creatinine 0.85 0.80 - 1.30 mg/dL [facility] Comment:Testing performed by : [facility], [address] [place] [phone] Glucose 76 70 - 199 mg/dL [facility] Comment: [...] was last revised 2017. Testing performed by: [facility], [address] [place] [address] Calcium 9.3 8.5 - 10.3 mg/dL [facility] Comment:Testing performed by : [place] [address] Bilirubin, total 0.4 0.1 - 1.2 mg/dL [facility] Comment:Testing performed by : [facility], [address] [place], [place] [phone] Protein, pl 5.9(L) 6.5 - 8.5 g/dL [facility] Comment:Testing performed by : [place] [id number] Albumin 4.4 3.5 - 5.0 g/dL [facility] Comment:Testing performed by : [place] [id number] Alk phos 394(H) 40 - 130 Units/L [facility] Comment:Testing performed by : [place] [id number] ALT 38 7 - 55 Units/L [facility] Comment:Testing performed by : [address] AST 32 10 - 50 Units/L [facility] Comment:Testing performed by : [address] [phone] Blood specimen (specimen) 06/12/2020 7:50 AM CDT 06/12/2020 7:51 AM CDT Narrative [facility] - 06/12/2020 8:13 AM CDT *Please draw along with Dr. Gillespie's labs on 06/12* us Theodore Gresham MD LAB BLOOD ORDERABLES Final Result [facility] [address] [facility] [place] [address] * (ABNORMAL) CBC with auto differential (06/12/2020 7:50 AM CDT) WBC 13.7(H) 3.8 - 9.8 K/cumm [facility] Comment:Testing performed by : [facility], [address] [place] [phone] Hgb 15.2 13.8 - 17.2 g/dL [facility] Comment:Testing performed by : [facility], [address] [place] [phone] Hct 44.7 40.7 - 50.3 % [facility] Comment:Testing performed by : [facility], [address] [place] [phone] Plt 271 140 - 440 K/cumm [facility] Comment:Testing performed by : [facility], [address] [place] [phone] MPV 7.5 6.8 - 10.4 fL [facility] Comment:Testing performed by : [address] [phone] RBC 4.60 4.50 - 5.70 M/cumm [facility] Comment:Testing performed by : [facility], [address] [place] [phone] MCV 97.0 80.0 - 97.6 fL [facility] Comment:Testing performed by : [facility], [address] [place] [phone] MCH 33.0 26.7 - 33.7 pg [facility] Comment:Testing performed by : [address] [phone] MCHC 34.0 32.7 - 35.5 g/dL [facility] Comment:Testing performed by : [facility], [address] [facility] [phone] RDW CV 13.6 11.8 - 14.6 % [facility] Comment:Testing performed by : [facility], [address] [place] [phone] NRBC abs 0.01 0.00 - 0.01 K/cumm [facility] Comment:Testing performed by : [facility], [address] [place] [phone] Blood specimen (specimen) 06/12/2020 7:50 AM CDT 06/12/2020 7:51 AM CDT Narrative [facility] - 06/12/2020 7:57 AM CDT *Please draw along with Dr. Gillespie's labs on 06/12* us Theodore Gresham MD LAB BLOOD ORDERABLES Final Result [facility] [address] [facility] [place] [address] * (ABNORMAL) Lipid panel (06/12/2020 7:45 AM CDT) Cholesterol 135 30 - 199 mg/dL [facility] Comment: Interpretive Data Ages < or [...] revised on 2018. HDL 31(L) >=40 mg/dL [facility] Comment: Interpretive Data Ages < or [...] on 2018. LDL, calculated 76 <=129 mg/dL [facility] Comment: Interpretive Data Ages < or [...] revised on 2018. Non-HDL Cholesterol 104 mg/dL [facility] Comment: Interpretive Data Ages [...] last revised on 2018. Chol/HDL ratio 4 [facility] Blood specimen (specimen) 06/12/2020 7:45 AM CDT 06/12/2020 8:14 AM CDT Narrative [facility] - 06/12/2020 8:43 AM CDT *Please draw along with Dr. Gillespie's labs on 06/12* us Theodore Gresham MD LAB BLOOD ORDERABLES Final Result [facility] Department of Laboratories [place], [place] [id number] * Tacrolimus level trough (06/12/2020 7:45 AM CDT) [facility] Tacrolimus trough 5.7 ng/mL [facility] Comment: Interpretive Data Testing performed by liquid chromatography-tandem mass spectrometry. ??Therapeutic concentrations vary depending on type of transplanted organ and time elapsed since transplant. ??Typical trough concentrations range from 5-15 ng/mL. ??This test was developed and its performance characteristics determined by the [facility] consistent with CLIA requirements. ??This test has not been cleared or approved by the [place] Food and Drug administration. ??Current interpretive data last reviewed 2020. Blood specimen (specimen) 06/12/2020 7:45 AM CDT 06/12/2020 8:14 AM CDT Narrative [facility] - 06/12/2020 11:22 AM CDT *Please draw along with Dr. 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
--- OUTSIDE RECORDS SUMMARY | 2024-10-28 06:19 | XMS_ITS | Encounter Summary ---
Author Organization [facility] Address [address] [place] [address] Phone Care Team Providers Care Neuroscience Director Na Name Role Phone Guero Colunga DO Primary Care Provider [phone] Amber Montesinos RN Unavailable [phone] Jil Duncan MD Unavailable [phone] Reason for Referral * Neurology (Routine) - Closed Specialty Diagnoses / Procedures Referred By Sascha rey Referred To Contact Neurology Diagnoses Weakness Procedures EMG/NCV -Please select the performing region: [facility] (All Locations); Procedure performed at: [facility] EMG Lab; Clinical Summary: weakness L leg and BL shoulders; Reason for referral or diagnostic question: polyarthralgia vs entrapmen... Hans Mendes MD PhD [address] [place] [address] Phone: tel: fax: [facility] Neurological Testing [address] [facility] [address]th [place] [address] [place] [address] Phone: tel: fax: Referral ID Status Reason Start Date Expiration Date Visits Re quested Visits Authorized [id number] Closed 09/19/2020 10/19/2021 1 1 POSTER INSTALLER Encounter Details Date Type Department Care Team (Late st Contact Info) Description 09/19/2020 Orders Only [facility] Neuro Muscle [address] [facility] 6th [place] [address] [place] [address] Hans Mendes MD PhD [address] [place] [address] Weakness (Primary Dx) Social History Tobacco Use Types Packs/Day Years Used Date Smoking Tobacco: Never Smokeless Tobacco: Never Alcohol Use Standard Drinks/Week Comments Yes 0 (1 standard drink = 0.6 oz pur e alcohol) occassional Sex and Gender Information Value Date Recorded Sex Assigned at Not on file Legal Sex Male 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 Gloria LAUREN will work with patient to schedule. Patient will need labs as well. POSTER INSTALLER documented in this encounter Plan of Treatment Scheduled Orders Name Type Priority Associated Diagnoses Orde r Schedule EMG/NCV -Please select the performing region: [facility] (All Locations); Procedure performed at: [facility] EMG Lab; Clinical Summary: weakness L leg and BL shoulders; Reason for referral or diagnostic question: polyarthralgia vs entrapmen... Neurology Routine Weakness Expected: 09/20/2020, Expires: 09/19/2021 Scheduled Procedures Name Priority Associated Diagnoses Date/Ti az COLONOSCOPY Encounter for screening for colorectal cancer in high risk patient Family history of rectal cancer documented as of this encounter Visit Diagnoses Diagnosis Weakness- Primary Other malaise and fatigue documented in this encounter Care Teams Neuroscience Director Na Relationship Specialty Start Date End Date Guero Colunga DO PCP - General Internal Medicine 03/22/19 04/18/23 Amber Montesinos, SHAILESH Plant Sprayer Transplant 11/17/19 Jil Duncan MD Consulting Physician Infectious Diseases 01/10/20 documented as of this encounter
--- OUTSIDE RECORDS SUMMARY | 2024-10-28 06:19 | XMS_ITS | Encounter Summary ---
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) Procedures PET/CT FDG Skull to Thigh Anita Gillespie MD Phone: tel: fax: [facility] [address] [place] [address] Referral ID Status Reason Start Date Expiration Date Visits Re quested Visits Authorized [id number] Closed 09/12/2020 10/12/2021 1 1 VIORAL HEALTH SPECIALIST Encounter Details Date Type Department Care Team (Late st Contact Info) Description 09/12/2020 Telephone [facility] Oncology [address] [facility] 7th [place] [address] [place] [address] Samreen Greene RN Social History Tobacco Use Types Packs/Day Years Used Date Smoking Tobacco: Never Smokeless Tobacco: Never Alcohol Use Standard Drinks/Week Comments Yes 0 (1 standard drink = 0.6 oz pur e alcohol) occassional Sex and Gender Information Value Date Recorded Sex Assigned at Not on file Legal Sex Male 6:28 AM BEHAVIORAL HEALTH SPECIALIST Gender Identity Not on file Sexual Orientation Straight 08/22/2021 9: 23 AM CDT documented as of this encounter Miscellaneous Notes * Addendum Note - Juan Jose Miller V. - 10/02/2020 7:07 AM CSTAddended by: JUAN JOSE MILLER V. on: 10/02/2020 07:07 AM Modules accepted: Orders [facility] HE[facility] SPECIALIST * Addendum Note - Juan Jose Miller V. - 10/02/2020 7:07 AM CSTAddended by: JUAN JOSE MILLER V. on: 10/02/2020 07:07 AM Modules accepted: Orders [facility] SPECIALIST * Telephone Encounter - Samreen Greene RN - 09/12/2020 3:29 PM BEHAVIORAL HEALTH SPECIALIST Updated Brooklynn with the plan of action after discussing Beka's symptoms with Dr. Gresham and Dr. Gillespie. We have added a PET scan on after his CT abdomen 3 phase for 10/02/20. Discussed that we will likely have them come back to the clinic after the PET scan to review the images with them. This PET scan will also include his arms down to his knees to evaluate those sore bones. We reviewed the times and preparation for this. We also discussed his case with Dr. Mendes in Neurology. They are working on getting Beka in for an appointment as well. I will update her further on this when I hear back. She knows to call our office right away should his symptoms worsen and we will move up his ap pointments. VIORAL HEALTH SPECIALIST documented in this encounter Plan of Treatment Scheduled Procedures Name Priority Associated Diagnoses Date/Ti me COLONOSCOPY Encounter for screening for colorectal cancer in high risk patient Family history of rectal cancer documented as of this encounter Results * PET/CT FDG Skull to Thigh (10/02/2020 12:52 PM BEHAVIORAL HEALTH SPECIALIST) Anatomical Region Laterality Modality N/A Positron Emissio n Tomography (PET) 10/02/2020 2:20 PM BEHAVIORAL HEALTH SPECIALIST Impressions 10/02/2020 3:21 PM BEHAVIORAL HEALTH SPECIALIST 1. ??Markedly hypermetabolic lymphadenopathy both above and [...] Maciel Spann M.D. Narrative 10/02/2020 3:21 PM BEHAVIORAL HEALTH SPECIALIST EXAMINATION: TUMOR FDG-PET/CT IMAGING DATE OF STUDY: ??10/02/2020 SCANNER: [facility] RADIOPHARMACEUTICAL: 11.53 mCi F-18 Fluorodeoxyglucose (FDG) [...] obtained. ??The study was interpreted on the [facility] workstation. ??The mean liver SUV (reported for quality cloth tester purposes) is 1.5. ?? The total scanned [...] FDG-PET/CT IMAGING DATE OF STUDY: 10/02/2020 SCANNER: [facility] RADIOPHARMACEUTICAL: 11.53 mCi F-18 Fluorodeoxyglucose (FDG) [...] obtained. The study was interpreted on the [facility] workstation. The mean liver SUV (reported for quality cloth tester purposes) is 1.5. The total scanned area [...] it. Electronically signed by: Maciel Spann M.D. Anita Gillespie MD IMG PET PROCEDURES Final R esult * (ABNORMAL) CRP (acute phase) (10/02/2020 7:26 AM BEHAVIORAL HEALTH SPECIALIST) CRP 17.3(H) <=10.0 mg/L [facility] Blood specimen (specimen) 10/02/2020 7:26 AM BEHAVIORAL HEALTH SPECIALIST 10/02/2020 8:06 AM BEHAVIORAL HEALTH SPECIALIST Result [facility] Anita Gillespie MD LAB BLOOD ORDERABLES Final Result Performing Organization Address [facility] Co de Phone Number [facility] [place] [place] [address] * Erythrocyte sedimentation rate (10/02/2020 7:26 AM BEHAVIORAL HEALTH SPECIALIST) Pathologist [facility] Erythrocyte sedimentation rate 5 1 - 15 mm/hr [facility] Blood specimen (specimen) 10/02/2020 7:26 AM BEHAVIORAL HEALTH SPECIALIST 10/02/2020 7:36 AM BEHAVIORAL HEALTH SPECIALIST Result [facility] Anita Gillespie MD LAB BLOOD ORDERABLES Final Result Performing Organization Address [facility] Co de Phone Number [facility] [place] [address] documented in this encounter Visit Diagnoses Diagnosis 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
--- OUTSIDE RECORDS SUMMARY | 2024-10-28 06:19 | XMS_ITS | Encounter Summary ---
Author Organization [facility] Healthcare Address [address] [place] [address] Care Team Providers Care Metal Bed Assembler Name Role Phone Guero Colunga DO Primary Care Provider [phone] Amber Montesinos RN Unavailable [phone] Jil Duncan MD Unavailable [phone] Encounter Details Date Type Department Care Team (Late st Contact Info) Description 06/17/2020 Documentation [facility] Transplant Liver [address] [facility] [id number] [place] [address] Amber Montesinos RN Social History Tobacco Use Types Packs/Day Years Used Date Smoking Tobacco: Never Smokeless Tobacco: Never Alcohol Use Standard Drinks/Week Comments Yes 0 (1 standard drink = 0.6 oz pur e alcohol) occassional Sex and Gender Information Value Date Recorded Sex Assigned at Not on file Legal Sex Male 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 Gresham to review. Will follow up with MD and patient. documented in this encounter Plan of Treatment Scheduled Procedures Name Priority Associated Diagnoses Date/Ti me COLONOSCOPY Encounter for screening for colorectal cancer in high risk patient Family history of rectal cancer documented as of this encounter Visit Diagnoses Not on filedocumented in this encounter Care Teams Metal Bed Assembler Relationship Specialty Start Date End Date Guero Colunga DO PCP - General Internal Medicine 03/22/19 04/18/23 Amber Montesinos, RN Glass Or Mirror Inspector Transplant 11/17/19 Jil Duncan MD Consulting Physician Infectious Diseases 01/10/20 documented as of this encounter
--- OUTSIDE RECORDS SUMMARY | 2024-10-28 06:19 | XMS_ITS | Encounter Summary ---
Author Organization [facility] Healthcare Address [address] [place] [address] Care Team Providers Care Library Media Specialist Name Role Phone Guero Colunga Primary Care Provider [phone] Amber Montesinos RN Unavailable [phone] Jil Duncan MD Unavailable [phone] Encounter Details Date Type Department Care Team (Late st Contact Info) Description 06/05/2020 Telephone [facility] Transplant Liver [address] [facility] [phone] [place] [address] Rafia Wright Social History Tobacco Use Types Packs/Day Years Used Date Smoking Tobacco: Never Smokeless Tobacco: Never Alcohol Use Standard Drinks/Week Comments Yes 0 (1 standard drink = 0.6 oz pur e alcohol) occassional Sex and Gender Information Value Date Recorded Sex Assigned at Not on file Legal Sex Male 6:28 AM INVESTIGATOR Gender Identity Not on file Sexual Orientation Straight 08/22/2021 9: 23 AM CDT documented as of this encounter Miscellaneous Notes * Telephone Encounter - Amber Vargas RN - 06/05/2020 4:04 PM CDT Returned call to patient's mother. Discussed liver biopsy note from Dr. Gillespie. Patient is getting labs done on 06/12 before his appointment with Dr. Gillespie. Let her know that we could order labs for patient to get them done the same day. I will follow up with [facility] the day before his appointment to make sure there will be no issue getting labs done with his appointment on the 7th floor. * Telephone Encounter - Rafia Wright - 06/05/2020 12:45 PM CDT Brooklynn, pt's mom would like a return call to discuss the Liver Biopsy. documented in this encounter Plan of Treatment Scheduled Procedures Name Priority Associated Diagnoses Date/Ti me COLONOSCOPY Encounter for screening for colorectal cancer in high risk patient Family history of rectal cancer documented as of this encounter Visit Diagnoses Not on filedocumented in this encounter Care Teams Library Media Specialist Relationship Specialty Start Date End Date Guero Colunga DO PCP - General Internal Medicine 03/22/19 04/18/23 Amber Montesinos, SHAILESH Asphalt Smoother Transplant 11/17/19 Jil Duncan MD Consulting Physician Infectious Diseases 01/10/20 documented as of this encounter
--- OUTSIDE RECORDS SUMMARY | 2024-10-28 06:19 | XMS_ITS | Encounter Summary ---
Author Organization [facility] Healthcare Address [address] [place] [address] Care Team Providers Care Cpr Instructor Name Role Phone Guero Colunga Primary Care Provider [phone] Amber Montesinos RN Unavailable [phone] Jil Duncan MD Unavailable [phone] Encounter Details Date Type Department Care Team (Late st Contact Info) Description 05/01/2020 Telephone 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 Please call again at [phone]. documented in this encounter Plan of Treatment Scheduled Procedures Name Priority Associated Diagnoses Date/Ti nj COLONOSCOPY Encounter for screening for colorectal cancer in high risk patient Family history of rectal cancer documented as of this encounter Visit Diagnoses Not on filedocumented in this encounter Care Teams Cpr Instructor Relationship Specialty Start Date End Date Guero Colunga DO PCP - General Internal Medicine 03/22/19 04/18/23 Amber Montesinos RN Command Center Analyst Transplant 11/17/19 Jil Duncan MD Consulting Physician Infectious Diseases 01/10/20 documented as of this encounter
--- OUTSIDE RECORDS SUMMARY | 2024-10-28 06:19 | XMS_ITS | Encounter Summary ---
Author Organization [facility] Healthcare Address [address] [place] [address] Care Team Providers Care Head Of Training And Development Name Role Phone Guero Colunga Primary Care Provider [phone] Amber Montesinos RN Unavailable [phone] Jil Duncan MD Unavailable [phone] Reason for Visit * Diagnostic Imaging (Routine) - Closed Specialty Diagnoses / Procedures Referred By Contac t Referred To Contact Radiology Diagnoses History of liver transplant (CMS/HCC) (HCC) LFT elevation Procedures US Guided Biopsy Liver IR Biopsy Liver US Guided Biopsy Liver IR Biopsy Liver Theodore Gresham MD Phone: tel: fax: [address] [phone] Referral ID Status Reason Start Date Expiration Date Visits Re quested Visits Authorized [id number] Closed 05/02/2020 11/11/2021 1 1 Encounter Details Date Type Department Care Team (Latest Contact Info) Description 05/14/2020 9:16 AM CDT - 05/14/2020 3:33 PM CDT Hospital Encounter [address] [phone] Theodore Greshma MD [address] [place] [address] [phone] [place] [address] History of liver transplant (CMS/HCC); LFT elevation Discharge Disposition: Discharge to home or self care Social History Tobacco Use Types Packs/Day Years Used Date Smoking Tobacco: Never Smokeless Tobacco: Never Alcohol Use Standard Drinks/Week Comments Yes 0 (1 standard drink = 0.6 oz pur e alcohol) occassional Sex and Gender Information Value Date Recorded Sex Assigned at Not on file Legal Sex Male 6:28 AM SOUND ASSISTANT Gender Identity Not on file Sexual Orientation Straight 08/22/2021 9: 23 AM CDT documented as of this encounter Last Filed Vital Signs Vital Sign Reading Time Taken Comments Blood Pressure 101/61 05/14/2020 3:30 PM CDT Pulse 70 05/14/2020 3:30 PM CDT Temperature 36.7 ??C (98.1 ??F) 05/14/2020 1:43 PM CD T Respiratory Rate 14 05/14/2020 3:30 PM CDT Oxygen Saturation 99% 05/14/2020 3:30 PM CDT Inhaled Oxygen Concentration - - Weight 59 kg (130 lb) 05/14/2020 11:46 AM CDT Height 172.7 cm (5' 8 ) 05/14/2020 11:46 AM CDT Body Mass Index 19.77 05/14/2020 11:46 AM CDT documented in this encounter Discharge Diagnoses Diagnosis Other complications of liver transplant (HCC) - OTHER COMPLICATIONS OF LIVER TRANSPLANT Other specified diseases of liver - OTHER SPECIFIED DISEASES OF LIVER Surgical operation with transplant of whole organ as the cause of abnormal reaction of the patient, or of later complication, without mention of misadventure at the time of the procedure - SURGICAL OPERATION WITH TRANSPLANT OF WHOLE ORGAN THE CAUSE OF ABNORMAL REACTION OF THE PATIENT, Activity, unspecified - ACTIVITY, UNSPECIFIED Unspecified place or not applicable - UNSPECIFIED PLACE OR NOT APPLICABLE Unspecified external cause status - UNSPECIFIED EXTERNAL CAUSE STATUS documented in this encounter Discharge Instructions * Discharge Instructions* Nikolai Vela MD - 05/14/2020 3:[address] Radiology Biopsy Discharge Instructions Procedure [x] Abdomen biopsy of Liver Activity [] No restrictions, resume regular activities. [] Please stay with a responsible adult today. [] No driving or operating heavy machinery for 24 hours. [x] Rest today, and then increase activities tomorrow as tolerated. [] No lifting more than 5 pounds for 24 hours. [] Avoid pressurized compartments like airplanes for 2 weeks. Other: Diet [x] No restrictions, resume previous diet [] Drink plenty of fluids [] No eating or drinking for ____ Hours Other: Medications [x] Resume all pre procedure medications as instructed by your physician [] Resume blood thinners or Asprin [] Tomorrow or on . [] Prescription given for . Other: Wound and Skin Care [x] Keep area clean and dry for 24 hours. May remove band aids/dressing in 24 hours. [x] May apply ice to the procedure site for first 24 hours, 20 minutes on then off for hours. What to Expect [x] Some mild discomfort is expected for up to 24 hours. If pain persists, contact your primary physician. When to call your Doctor Please call your primary physician for any of the following: ?? Pain lasting longer than 24 hours ?? Hematoma/large bruise at puncture site ?? Bleeding/drainage from the puncture site [x] If you have abdominal or back pain, go to the nearest emergency room. Be sure to let them know you had an abdominal biopsy done recently. Follow-up Please follow-up with you physician as instructed. All biopsy results are sent to the physician who ordered the exam and will be available in 5 to 7 days. documented in this encounter Medications at Time of Discharge tacrolimus (PROGRAF) 0.5 mg capsule TAKE 1 CAPSULE BY MOUTH TWICE A DAY 60 capsule 11 02/12/2020 05/27/2020 documented as of this encounter Discharge Disposition Disposition Code Departure Means Destination Discharge to home or self care documented in this encounter Nursing Notes * Guicho Niteo RN - 05/14/2020 12:41 PM CDT Pt ID band verified, remains on stretcher for procedure, and placed on monitor. documented in this encounter Miscellaneous Notes * Result Encounter Note - Theodore Gresham MD - 05/14/2020 3:33 PM CDT The biopsy slides were reviewed in our conference with findings as described in the report The cholestatic liver tests could reflect the sinusoidal infiltrate, the microgranuloma, or a combination of the two I do not know why he has the microgranuloma, they were not abdundant Agree this needs to be reviewed by Dr. Gillespie * Post-Procedure Note - Nikolai Vela MD - 05/14/2020 1:48 PM CDT Radiology Brief Post Procedure Note Attending: Dr. Calderon Marine Gear Keeper: Dr. Vela Sedation/Anesthesia: Local Pre-Op/Pre-Procedure Diagnosis: Liver transplantation with elevated liver enzymes Post-Op/Post-Procedure Diagnosis: same Procedure Performed: ultrasound guided liver biopsy Procedure Findings: successful ultrasound guided liver biopsy Complications: None Estimated Blood Loss: < 30 ml Specimens: 1x 3.3cm core specimen Condition: Stable Full report to follow. 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 Previous biopsy of liver lesion demonstrating necrosis. Biopsy of background liver requested. Have you had a problem with easy bleeding or bruising within the last 30 days? No Have you taken any blood thinners within the last 30 days? Include last dose taken. No PMH: Past Medical History: Diagnosis Date ??? CMV [...] ??? PNA (pneumonia) ??? Pulmonary emboli (CMS/HCC) Allergies: No Known Allergies Meds: Current Facility-Administered Medications: ??? sodium chloride 0.9% flush 0.5-20 mL, 0.5-20 mL, intra-catheter, Q8H PIPPA, Nikolai Vela MD ??? sodium chloride 0.9% flush 0.5-20 mL, 0.5-20 mL, intra-catheter, PRN, Nikolai Vela MD, 10 mL at 05/14/20 1159 ??? sodium chloride 0.9% infusion, 30 mL/hr, intravenous, Continuous, Nikolai Vela MD, Last Rate: 30 mL/hr at 05/14/20 1200, 30 mL/hr at 05/14/20 1200 Physical exam: General Appearance: awake, alert, oriented, in no acute distress Skin: there are no suspicious lesions or rashes of concern Abdomen: Soft, non-tender. Vitals: Vitals: 05/14/20 1146 05/14/20 1148 05/14/20 1235 05/14/20 1240 BP: 103/67 98/61 106/64 BP Location: Left arm Patient Position: Lying Pulse: 63 65 70 Resp: 16 17 17 Temp: 36.7 ??C (98.1 ??F) TempSrc: Oral SpO2: 97% 97% 97% Weight: 59 kg (130 lb) Height: 172.7 cm (5' 8 ) Labs: INR 1.0 PLT 260 Imaging: CT 04/05/2020 Continued interval decrease in size of a segment 4B lesion, which likely represents a resolving infectious process/abscess. Continued attention on follow-up examination is recommended to ensure complete resolution. No new focal hepatic lesions. Assessment and Plan: Proceed with ultrasound guided liver biopsy. Benefits, risks and alternatives of procedure have been discussed with the patient and/or their primary care sales representative. All questions answered and they agree to proceed. documented in this encounter Plan of Treatment Scheduled Procedures Name Priority Associated Diagnoses Date/Ti me COLONOSCOPY Encounter for screening for colorectal cancer in high risk patient Family history of rectal cancer documented as of this encounter Procedures Procedure Name Priority Date/Time Associated Diagnosis Comments US GUIDED BIOPSY LIVER Schedule Routine, Read Routine (OP Routine) 05/14/2020 1:51 PM CDT History of liver transplant (CMS/HCC) LFT elevation SURGICAL PATHOLOGY Routine 05/14/2020 1:03 PM CDT History of liver transplant (CMS/HCC) LFT elevation documented in this encounter Results [...] Jason Calderon M.D. us Theodore Gresham [place] [facility] [place]ED[place] Final Re sult * Surgical pathology (05/14/2020 1:03 PM CDT) Tissue (Liver, Biopsy, Needle Medical) 05/14/2020 1:03 PM CDT Narrative PATHOLOGY [facility] - 05/17/2020 8:01 AM CDT EPIC results best viewed via link to PDF [facility] Yulisa [facility] [place] [address] SURGICAL PATHOLOGY REPORT FINAL WITH ADDENDUM Patient Name: ?? ADI NICHOLS Gender: ??M : ??1995 (Age: 25) Address: ??[address] [place] [id number] Hospital #: ??[id number] Taken:05/14/2020 Received:05/14/2020 Reported: 05/17/2020 Patient Type: [facility] OP In Bed ?? Service: Radiology Location: [facility] 3500 Physician(s): ??Jason Calderon M.D. Theodore Gresham M.D. Guero Colunga D.O. Diagnosis: Liver, core needle biopsy: ? - Sinusoidal T-cell predominant inflammatory infiltrate, and foci of lobular lymphoid aggregates and microgranulomas (see comment) yxl/05/16/2020 17:59 By this signature, I attest that the above diagnosis is based upon my personal examination of the slides(and/or other material indicated in the diagnosis). Marisa Torres M.D. Report Electronically Reviewed and Signed Out By ??Marisa Torres M.D. 05/17/2020 08:01:34 Microscopic Description and Comment: Microscopic examination substantiates the above cited diagnosis. The core needle biopsy of liver shows mild architectural remodeling, with altered portal spacing, some periportal vascular channels and ectatic sinusoids, and variation in thickness of hepatic cords, indicating altered vascular flow. There is patchy lobular and prominent sinusoidal chronic inflammatory infiltrate, including occasional microgranulomas, as well as mild portal inflammation in a minority of portal tracts. ??The hepatocytes show marked reactive changes. There is no significant steatosis. ??Immunohistochemical stain for CMV is negative. ??There are no acid-fast bacilli (AFB stain) or fungal organisms (GMS stain). The case was shared with Dr. Mi Weinberg from the hematopathology section, whose opinion is as follows: A panel of immunohistochemical stains (CD20, CD3, CD4, CD5, CD2, CD5, CD7, CD8) and in situ hybridization stain (JAKOB) were performed (single antibody/ probe procedures each, with appropriate controls) for lymphoma workup in tissue context. CD20 highlights rare small B cells. CD3+ small T cells show retained expression of CD2, CD5, CD7 and a CD4: CD8 ratio within normal limit. EBV by JAKOB RASHAUN is negative. Overall findings are consistent with T cell predominant inflammatory infiltrate. Diagnostic morphologic features of B cell lymphoma or T cell lymphoma are not seen. If there is clinical suspicion for T cell PTLD in particular hepatosplenic T cell lymphoma, submission of a peripheral blood specimen for flow cytometric analysis is recommended. Connie Vazquez M.D. History: The patient is a 25-year-old man who is a liver transplant recipient now presenting with LFT elevation. ??Operative procedure: Random liver transplant core biopsy Specimen(s) Received: A: Random liver transplant core bx Gross Description: Received in formalin, labeled with the patient's name and random liver transplant core biopsy is one preston brown soft tissue core measuring 2.4 cm in length by 0.1 cm in diameter. ??Wrapped and labeled A1. ??Jar zero. axxm/05/14/2020 18:30 PA(s): SADE Finn ([facility]) By this signature, I attest that the above diagnosis is based upon my personal examination of the slides(and/or other material). Addenda/Procedures Addendum Ordered: 05/31/2020 Status: Signed Out Addendum Complete: 05/31/2020 By: Mi Weinberg M.D., Ph.D. Addendum Signed Out: 05/31/2020 ?? Addendum Comment Interpretation of following stains (CD20, CD3, CD4, CD5, CD2, CD5, CD7, CD8 and JAKOB) was performed by Mi Weinberg M.D. ?? By this signature, I attest that the above diagnosis is based upon my personal examination of the slides(and/or other material indicated in the diagnosis). ?? Mi Weinberg M.D., Ph.D. ??Report Electronically Reviewed and Signed Out By ??Mi Weinberg M.D., Ph.D. ??05/31/2020 09:37:03 ? The BF-1 test was performed at [facility], [address] [place] [address]. The performance characteristics of some immunohistochemical stains, fluorescence in-situ hybridization tests and immunophenotyping by flow cytometry cited in this report (if any) were determined by the Surgical Pathology Department at [facility] as part of an ongoing customer quality specialist program and in compliance with federally [...] determined by the Surgical Pathology Department of [facility]. ??It has not been cleared or approved by the U. S. Food and Drug Administration. IMAGES AND SCANNED DOCUMENTS, IF INCLUDED, ONLY VIEWABLE IN PDF VERSION OF REPORT us Theodore Gresham MD LAB PATHOLOGY ORDERABLES F inal Result PATHOLOGY [facility] [address]rd Floor [place], [place] [phone] documented in this encounter Visit Diagnoses Diagnosis History of liver transplant (CMS/HCC) (HCC) Liver replaced by transplant LFT elevation documented in this encounter Administered Medications Inactive Administered Medications - up to 3 most recent administrations Medication Order MAR Action Action Date Dose Rate Site lidocaine PF (XYLOCAINE) 10 mg/mL (1 %) preservative free injection Code/trauma/sedation medication, Starting on Wed05/14/20 at 1315, Intra-Procedure (IR), Indications: Administration of Local AnesthesiaIndications:Admin istration of Local Anesthesia Given 05/14/2020 1:17 PM CDT 4 mL Right Upper Abdomen Given 05/14/2020 1:15 PM CDT 2 mL Ri ght Upper Abdomen ondansetron (ZOFRAN) injection 4 mg 4 mg, intravenous, Administer over 2 Minutes, Once as needed, nausea, vomiting, if not tolerating PO, Starting on Wed05/14/20 at 1351, For 1 dose, Recovery (IR), Indications: nausea and vomitingIndications:nausea and vomiting ondansetron ODT (ZOFRAN-ODT) disintegrating tablet 4 mg 4 mg, oral, Once as needed, nausea, vomiting, Starting on Wed05/14/20 at 1351, For 1 dose, Recovery (IR), Indications: nausea and vomitingIndications:nausea and vomiting sodium chloride 0.9% flush 0.5-20 mL 0.5-20 mL, intra-catheter, Every 8 hours scheduled, First dose on Wed05/14/20 at 1400, Pre-Procedure (IR), Flush volume based on line type and size. sodium chloride 0.9% flush 0.5-20 mL 0.5-20 mL, intra-catheter, As needed, line care, Starting on Wed05/14/20 at 1150, Pre-Procedure (IR), Flush volume based on line type and size. Flush before and after each use. Given 05/14/2020 11:59 AM CDT 10 mL sodium chloride 0.9% infusion 30 mL/hr, intravenous, Continuous, Starting on Wed05/14/20 at 1230, Pre-Procedure (IR), Please discontinue saline infusion at the end of the IR procedure New Bag 05/14/2020 12:00 PM CDT 30 mL/hr 30 mL/ hr documented in this encounter Active and Recently Administered Medications Times are shown in CDT. Scheduled Medication Order 05/12/2020 05/13/2020 05/14/2020 sodium chloride 0.9% flush 0.5-20 mL 0.5-20 mL, intra-catheter, Every 8 hours scheduled, First dose on Wed05/14/20 at 1400, Pre-Procedure (IR), Flush volume based on line type and size. 1400 (Due) Continuous Medication Order 05/12/2020 05/13/2020 05/14/2020 sodium chloride 0.9% infusion 30 mL/hr, intravenous, Continuous, Starting on Wed05/14/20 at 1230, Pre-Procedure (IR), Please discontinue saline infusion at the end of the IR procedure 1200 (New Bag - Prov ider: Kathy Peña RN) PRN Medication Order 05/12/2020 05/13/2020 05/14/2020 lidocaine PF (XYLOCAINE) 10 mg/mL (1 %) preservative free injection (COMPLETED) Code/trauma/sedation medication, Starting on Wed05/14/20 at 1315, Intra-Procedure (IR), Indications: Administration of Local Anesthesia 1315 (Given - Provid er: Nikolai Vela MD)1317 (Given - Provider: Nikolai Vela MD) ondansetron (ZOFRAN) injection 4 mg(Linked Group 1) 4 mg, intravenous, Administer over 2 Minutes, Once as needed, nausea, vomiting, if not tolerating PO, Starting on Wed05/14/20 at 1351, For 1 dose, Recovery (IR), Indications: nausea and vomiting ondansetron ODT (ZOFRAN-ODT) disintegrating tablet 4 mg(Linked Group 1) 4 mg, oral, Once as needed, nausea, vomiting, Starting on Wed05/14/20 at 1351, For 1 dose, Recovery (IR), Indications: nausea and vomiting sodium chloride 0.9% flush 0.5-20 mL 0.5-20 mL, intra-catheter, As needed, line care, Starting on Wed05/14/20 at 1150, Pre-Procedure (IR), Flush volume based on line type and size. Flush before and after each use. 1159 (Given - Provid er: Kathy Peña RN) Linked Groups Order Group 1: ondansetron ODT (ZOFRAN-ODT) disintegrating tablet 4 mgJump to med 4 mg, oral, Once as needed, nausea, vomiting, Starting on Wed05/14/20 at 1351, For 1 dose, Recovery (IR), Indications: nausea and vomiting Or ondansetron (ZOFRAN) injection 4 mgJump to med 4 mg, intravenous, Administer over 2 Minutes, Once as needed, nausea, vomiting, if not tolerating PO, Starting on Wed05/14/20 at 1351, For 1 dose, Recovery (IR), Indications: nausea and vomiting documented in this encounter Orders Medications Ordered That John ht Not Have Been Administered Count Last Ordered Date First Ordered Date ondansetron (ZOFRAN) injection 4 mg 1 05/14 ondansetron ODT (ZOFRAN-ODT) disintegrating tablet 4 mg 1 05/14/2020 sodium chloride 0.9% flush 0.5-20 mL 1 05/01 documented in this encounter Care Teams Head Of Training And Development Relationship Specialty Start Date End Date Guero Colunga DO PCP - General Internal Medicine 03/22/19 04/18/23 Amber Montesinos, SHAILESH Manager Mac Transplant 11/17/19 Jil Duncan MD Consulting Physician Infectious Diseases 01/10/20 documented as of this encounter
--- OUTSIDE RECORDS SUMMARY | 2024-10-28 06:19 | XMS_ITS | Encounter Summary ---
Author Organization [facility] Address [address] [place] [address] Care Team Providers Care Carcass Splitter Name Role Phone Guero Colunga DO Primary Care Provider [phone] Amber Montesinos RN Unavailable [phone] Jil Duncan MD Unavailable [phone] Encounter Details Date Type Department Care Team (Late st Contact Info) Description 09/17/2020 Telephone [facility] Transplant Liver [address] [facility] [address] [id number] [place], [place] [id number] Amber Montesinos RN Social History Tobacco Use Types Packs/Day Years Used Date Smoking Tobacco: Never Smokeless Tobacco: Never Alcohol Use Standard Drinks/Week Comments Yes 0 (1 standard drink = 0.6 oz pur e alcohol) occassional Sex and Gender Information Value Date Recorded Sex Assigned at Not on file Legal Sex Male 6:28 AM 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 would like for patient to have a CMV PCR, tacrolimus trough andfree t4 done either this week or next week. Placed call to patient to discuss. Spoke with patient and mom. They recently were exposed to someone with COVID and got tested yesterday. They are quarantining and waiting for their results. Let her know to please update us with results. Patient has been feeling well other than joint pain and weakness (see previous notes). They agreed that they would get labs for Dr. Gresham on 10/02/20 before his clinic appointment with the liver transplant team andDr. Gillespie. Mother also stating that patient lost his job due to his multiple medical issues. Currently he has his health insurance through [employer]. Mom is going to look into applying him for disability. She is afraid that if patient does not have the same insurance as before, he will not be able to come to [facility] to see his providers. Provided her with our financial coordinators number to speak with to discuss any insurance questions. GE MANAGEMENT FACILITATOR documented in this encounter Plan of Treatment Scheduled Procedures Name Priority Associated Diagnoses Date/Ti me COLONOSCOPY Encounter for screening for colorectal cancer in high risk patient Family history of rectal cancer documented as of this encounter Results * T4, free (10/02/2020 7:26 AM CHANGE MANAGEMENT FACILITATOR) Free T4 1.25 0.90 - 1.70 ng/dL [facility] Blood specimen (specimen) 10/02/2020 7:26 AM CHANGE MANAGEMENT FACILITATOR 10/02/2020 8:06 AM CHANGE MANAGEMENT FACILITATOR Narrative [facility] - 10/02/2020 8:48 AM CHANGE MANAGEMENT FACILITATOR Please draw along with Dr. Gillespie's labs us Theodore Gresham MD LAB BLOOD ORDERABLES Final Result [facility] [address] [facility] [place] [address] * Tacrolimus level trough (10/02/2020 7:26 AM CHANGE MANAGEMENT FACILITATOR) Tacrolimus trough 8.0 ng/mL [facility] Comment: Interpretive Data Testing performed by liquid chromatography-tandem mass spectrometry. ??Therapeutic concentrations vary depending on type of transplanted organ and time elapsed since transplant. ??Typical trough concentrations range from 5-15 ng/mL. ??This test was developed and its performance characteristics determined by the [facility] consistent with CLIA requirements. ??This test has not been cleared or approved by the [place] Food and Drug administration. ??Current interpretive data last reviewed 2020. Blood specimen (specimen) 10/02/2020 7:26 AM CHANGE MANAGEMENT FACILITATOR 10/02/2020 7:36 AM CHANGE MANAGEMENT FACILITATOR Narrative [facility] 10/02/2020 11:24 AM CHANGE MANAGEMENT FACILITATOR Please draw along with Dr. Gillespie's labs Theodore Gresham MD LAB BLOOD ORDERABLES Final Result Performing Organization Address [facility]/ZIP Co de Phone Number [facility] [place] [address] * (ABNORMAL) Cytomegalovirus (CMV) DNA PCR, quantitative Blood (10/02/2020 7:08 AM CHANGE MANAGEMENT FACILITATOR) [facility] Signature CMV DNA Detected( A) [facility] Comment: Interpretive Data: The quantifiable range of this assay is 137 IUnits/mL to 9,100,000 IUnits/mL (2.14 log IUnits/mL to 6.96 log IUnits/mL). Testing was performed by the NIA AmpliPrep/NIA TaqMan CMV Test ([employer] Testing performed at [facility] Current interpretive data was last revised on 17. CMV DNA IU/mL 2,916 IUnits/mL [facility] CMV DNA log IU/mL 3.46 log IUnits/mL [facility] Blood specimen (specimen) 10/02/2020 7:08 AM CHANGE MANAGEMENT FACILITATOR 10/02/2020 2:01 PM CHANGE MANAGEMENT FACILITATOR Narrative [facility] - 10/02/2020 10:31 PM CHANGE MANAGEMENT FACILITATOR Please draw along with Dr. Gillespie's labs Theodore Gresham MD LAB MICROBIOLOGY - GENERAL ORDERABLES Final Result Performing Organization Address City/[facility]/ZIP Co de Phone Number [facility] Department [place] [address] documented in this encounter Visit Diagnoses Diagnosis [...] hips documented in this encounter Care Teams Carcass Splitter Relationship Specialty Start Date End Date Guero Colunga DO PCP - General Internal Medicine 03/22/19 04/18/23 Amber Montesinos, SHAILESH Leather Parts Matcher Transplant 11/17/19 Jil Duncan MD Consulting Physician Infectious Diseases 01/10/20 documented as of this encounter
--- OUTSIDE RECORDS SUMMARY | 2024-10-28 06:19 | XMS_ITS | Encounter Summary ---
Author Organization [facility] Healthcare Address [address] [place] [address] Care Team Providers Care Mortgage Loan Interviewer Name Role Phone Guero Colunga Primary Care Provider [phone] Amber Montesinos RN Unavailable [phone] Jil Duncan MD Unavailable [phone] Encounter Details Date Type Department Care Team (Late st Contact Info) Description 05/27/2020 Orders Only [facility] Transplant Liver [address] [facility] [address] [id number] [place] [address] Amber Montesinos, SHAILESH Social History Tobacco Use Types Packs/Day Years Used Date Smoking Tobacco: Never Smokeless Tobacco: Never Alcohol Use Standard Drinks/Week Comments Yes 0 (1 standard drink = 0.6 oz pur e alcohol) occassional Sex and Gender Information Value Date Recorded Sex Assigned at Not on file Legal Sex Male 6:28 AM SEVERITY OF 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 Gender Identity Not on file Sexual Orientation Straight 08/22/2021 9: 23 AM CDT documented as of this encounter Ordered Prescriptions Prescription Sig Dispense Quantity Refills Last Filled Start Date End Date tacrolimus (PROGRAF) 0.5 mg capsule Take 1 capsule (0.5 mg total) by mouth 2 (two) times a day 60 capsule 11 05/27/2020 documented in this encounter Plan of Treatment Scheduled Procedures Name Priority Associated Diagnoses Date/Ti me COLONOSCOPY Encounter for screening for colorectal cancer in high risk patient Family history of rectal cancer documented as of this encounter Visit Diagnoses Not on filedocumented in this encounter Discontinued Medications Medication Sig Discontinue Reason Start Date End Da te tacrolimus (PROGRAF) 0.5 mg capsule TAKE 1 CAPSULE BY MOUTH TWICE A DAY Reorder 02/12/2020 05/27/2020 documented as of this encounter Care Teams Mortgage Loan Interviewer Relationship Specialty Start Date End Date Guero Colunga DO PCP - General Internal Medicine 03/22/19 04/18/23 Amber Montesinos, SHAILESH Technical Internship Transplant 11/17/19 Jil Duncan MD Consulting Physician Infectious Diseases 01/10/20 documented as of this encounter
--- OUTSIDE RECORDS SUMMARY | 2024-10-28 06:20 | XMS_ITS | Encounter Summary ---
Author Organization [facility] Healthcare Address [address] [place] [address] Care Team Providers Care Cooky Packer Name Role Phone Guero Colunga Primary Care Provider [phone] Amber Montesinos RN Unavailable [phone] Jil Duncan MD Unavailable [phone] Encounter Details Date Type Department Care Team (Late st Contact Info) Description 04/01/2020 7:20 PM CDT Lab [address] [address] Social History Tobacco Use Types Packs/Day Years Used Date Smoking Tobacco: Never Smokeless Tobacco: Never Alcohol Use Standard Drinks/Week Comments Yes 0 (1 standard drink = 0.6 oz pur e alcohol) occassional Sex and Gender Information Value Date Recorded Sex Assigned at Not on file Legal Sex Male 6:28 AM REEL MAN Gender Identity Not on file Sexual [...] CYTOMEGALOVIRUS (CMV) DNA, QUANT GEN LAB Routine 04/01/2020 1:05 PM CDT GLUCOSE, RANDOM (OUTREACH) Routine 04/01/2020 1:05 PM CDT DIFFERENTIAL AUTO Routine 04/01/2020 1:0 5 PM CDT BASIC METABOLIC PANEL WITHOUT GLUCOSE, PLASMA (OUTREACH) Routine 04/01/2020 1:05 PM CDT CBC WITH AUTO DIFFERENTIAL Routine 04/01/2020 1:05 PM CDT HEPATIC FUNCTION PANEL Routine 0 1:05 PM CDT documented in this encounter Results * (ABNORMAL) Hepatic function panel (04/01/2020 1:05 PM CDT) Pathologist [facility] Bilirubin, total 0.5 0.1 - 1.2 mg/dL [facility] Bilirubin, direct <0.2 0.1 - 0.3 mg/dL [facility] Protein, pl 6.0(L) 6.5 - 8.5 g/dL [facility] Albumin 4.2 3.5 - 5.0 g/dL [facility] Alk phos 416(H) 40 - 130 Units/L [facility] ALT 69(H) 7 - 55 Units/L [facility] AST 46 10 - 50 Units/L [facility] Blood specimen (specimen) 04/01/2020 1:05 PM CDT 04/01/2020 7:31 PM CDT Narrative [facility] - 04/02/2020 6:21 PM CDT Verbal/ Rosalio Grey 04/02/2020 17:45:22 CDT us Notinfile Unknown LAB BLOOD ORDERABLES Final Res ult [facility] Department [place] [address] * (ABNORMAL) Cytomegalovirus (CMV) DNA PCR, quantitative Blood (04/01/2020 1:05 PM CDT) Pathologist [facility] CMV DNA Detected( A) [facility] Comment: Interpretive Data: The quantifiable range of this assay is 137 IUnits/mL to 9,100,000 IUnits/mL (2.14 log IUnits/mL to 6.96 log IUnits/mL). Testing was performed by the NIA AmpliPrep/NIA TaqMan CMV Test ([employer] Testing performed at [facility] Current interpretive data was last revised on 17. CMV DNA IU/mL 734 IUnits/mL [facility] CMV DNA log IU/mL 2.87 log IUnits/mL [facility] Blood specimen (specimen) 04/01/2020 1:05 PM CDT 04/01/2020 8:28 PM CDT us Notinfile Unknown LAB MICROBIOLOGY - GENERAL ORD ERABLES Final Result [facility] Department [place] [address] * (ABNORMAL) Differential, auto (04/01/2020 1:05 PM CDT) Neutrophil abs 3.2 1.7 - 6.5 K/cumm [facility] Imm gran abs 0.0 0.0 - 0.1 K/cumm [facility] Lymphocyte abs 3.0 0.8 - 3.3 K/cumm [facility] Monocyte abs 1.1(H) 0.2 - 0.8 K/cumm [facility] Eosinophil abs 0.2 0.0 - 0.5 K/cumm [facility] Basophil abs 0.1 0.0 - 0.1 K/cumm [facility] Neutrophil pct 42.1 % [facility] Comment: Interpretive Data Percent cell count reference ranges are not reported, since discordance with absolute values may lead to misinterpretation of CBC data. Current Interpretive Data was last revised on 2018. Imm gran pct 0.4 % [facility] Comment: Interpretive Data Percent cell count reference ranges are not reported, since discordance with absolute values may lead to misinterpretation of CBC data. Current Interpretive Data was last revised on 2018. Lymphocyte pct 39.1 % [facility] Comment: Interpretive Data Percent cell count reference ranges are not reported, since discordance with absolute values may lead to misinterpretation of CBC data. Current Interpretive Data was last revised on 2018. Monocyte pct 14.8 % [facility] Comment: Interpretive Data Percent cell count reference ranges are not reported, since discordance with absolute values may lead to misinterpretation of CBC data. Current Interpretive Data was last revised on 2018. Eosinophil pct 2.6 % [facility] Comment: Interpretive Data Percent cell count reference ranges are not reported, since discordance with absolute values may lead to misinterpretation of CBC data. Current Interpretive Data was last revised on 2018. Basophil pct 1.0 % [facility] Comment: Interpretive Data Percent cell count reference ranges are not reported, since discordance with absolute values may lead to misinterpretation of CBC data. Current Interpretive Data was last revised on 2018. Blood specimen (specimen) 04/01/2020 1:05 PM CDT 04/01/2020 7:23 PM CDT us Notinfile Unknown LAB BLOOD ORDERABLES Final Res ult [facility] Department [place] [address] * (ABNORMAL) CBC with auto differential (04/01/2020 1:05 PM CDT) WBC 7.6 3.8 - 9.9 K/cumm [facility] Hgb 13.9 13.0 - 17.5 g/dL [facility] Hct 39.6 38.9 - 50.3 % [facility] Plt 260 150 - 400 K/cumm [facility] MPV 9.9 9.1 - 12.3 fL [facility] RBC 4.02(L) 4.30 - 5.80 M/cumm [facility] MCV 98.5(H) 81.3 - 96.4 fL [facility] MCH 34.6(H) 27.1 - 33.3 pg [facility] MCHC 35.1 32.3 - 35.7 g/dL [facility] RDW CV 17.2(H) 11.1 - 14.9 % [facility] RDW SD 62.9(H) 35.7 - 48.1 fL [facility] NRBC abs 0.00 0.00 - 0.01 K/cumm [facility] Blood specimen (specimen) 04/01/2020 1:05 PM CDT 04/01/2020 7:23 PM CDT us Notinfile Unknown LAB BLOOD ORDERABLES Final Res ult Performing Organization Address [facility] Co de Phone Number [facility] [place] [address] * Glucose, random (Outreach) (04/01/2020 1:05 PM CDT) Glucose 111 70 - 199 mg/dL [facility] Comment: Interpretive Data Fasting glucose >/= [...] interpretive data was last revised 2017. Blood specimen (specimen) 04/01/2020 1:05 PM CDT 04/01/2020 7:22 PM CDT us Notinfile Unknown LAB BLOOD ORDERABLES Final Res ult Performing Organization Address [facility] Co de Phone Number [facility] [place] [address] * (ABNORMAL) Basic metabolic panel without glucose (04/01/2020 1:05 PM CDT) Sodium 144 135 - 145 mmol/L [facility] Potassium, pl 3.7 3.3 - 4.9 mmol/L [facility] Chloride 107 97 - 110 mmol/L [facility] CO2 25 22 - 32 mmol/L [facility] Anion gap 12 2 - 15 mmol/L [facility] BUN 9 8 - 25 mg/dL [facility] Creatinine 0.73(L) 0.80 - 1.30 mg/dL [facility] Calcium 9.5 8.5 - 10.3 mg/dL [facility] Blood specimen (specimen) 04/01/2020 1:05 PM CDT 04/01/2020 7:22 PM CDT us Notinfile Unknown LAB BLOOD ORDERABLES Final Res ult [facility] [place] [address] documented in this encounter Visit Diagnoses Not on filedocumented in this encounter Care Teams Cooky Packer Relationship Specialty Start Date End Date Guero Colunga DO PCP - General Internal Medicine 03/22/19 04/18/23 Amber Montesinos, RN Basket Maker Transplant 11/17/19 Jil Duncan MD Consulting Physician Infectious Diseases 01/10/20 documented as of this encounter
--- OUTSIDE RECORDS SUMMARY | 2024-10-28 06:20 | XMS_ITS | Encounter Summary ---
Author Organization [facility] Address [address] [place] [address] Phone Care Team Providers Care Assistant Professor Of Education Name Role Phone Guero Colunga Primary Care Provider [phone] Amber Montesinos RN Unavailable [phone] Jil Duncan MD Unavailable [phone] Reason for Visit * Auth/Cert Specialty Diagnoses / Procedures Referred By Contyadira t Referred To Contact Referral ID Status Reason Start Date Expiration Date Visits Re quested Visits Authorized [id number] 1 1 Encounter Details Date Type Department Care Team (Late st Contact Info) Description 03/25/2020 2:00 PM CDT Home Care Visit [facility] [address] [place] [id number] Juanita Martin RN SN HOME VISIT Social History Tobacco Use Types Packs/Day Years Used Date Smoking Tobacco: Never Smokeless Tobacco: Never Alcohol Use Standard Drinks/Week Comments Yes 0 (1 standard drink = 0.6 oz pur e alcohol) occassional Sex and Gender Information Value Date Recorded Sex Assigned at Not on file 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 Gender Identity Not on file Sexual Orientation Straight 08/22/2021 9: 23 AM CDT documented as of this encounter Last Filed Vital Signs Vital Sign Reading Time Taken Comments Blood Pressure 106/66 03/25/2020 8:55 AM CDT Pulse 77 03/25/2020 8:55 AM CDT Temperature 36.8 ??C (98.2 ??F) 03/25/2020 8:55 AM CD T Respiratory Rate 16 03/25/2020 8:55 AM CDT Oxygen Saturation 97% 03/25/2020 8:55 AM CDT Inhaled Oxygen Concentration - - [...] Action Action Date Dose Rate Site heparin sod,porcine/0.9 % NaCl (HEPARIN FLUSH IV) 5 mL, intravenous, As needed, patency, Starting on Wed03/25/20 at 2208, Indications: Maintain Patency of Indwelling Vascular CatheterIndications:Maintain Patency of Indwelling Vascular Catheter Given 03/25/2020 9:00 AM CDT 5 mL sodium chloride 0.9 %, flush, (SALINE FLUSH INJ) 10 mL, intravenous, As needed, patency, Starting on Wed03/25/20 at 2208, Indications: Maintain Patency of Indwelling Vascular CatheterIndications:Maintain Patency of Indwelling Vascular Catheter Given 03/25/2020 9:00 PM CDT 10 mL documented in this encounter Home Health Visit - Care Plan Visit Details Visit Type -SN Home Visit Discipline -Nursing Home Problems Problem Description Start Date Status Goals Interve ntions Medications Disciplines: Nursing Home Management of IV Medications 02/18/2020 Active - 1 problem intervention scheduled/document ed in this visit IV Therapy-Manag ement, Education, and Maintenance Disciplines: Nursing Home Teaching and learning needs for performing home IV therapy 02/18/2020 Active - 5 problem interventions scheduled/document ed in this visit Monitor patient's vital signs every home health visit Disciplines: Nursing Home Monitor patient's vital signs every home health visit. 02/18/2020 Active 1 goal linked to scheduled/documen mohsen intervention 1 goal intervention scheduled/document ed in this visit Collect Specimen/Lab Draw Disciplines: Nursing Home Management of specimen samples, including lab draws, stool, urine, & tissue. 02/18/2020 Active - 1 problem intervention scheduled/document ed in this visit Standardized Guidelines Disciplines: Nursing Home Standardized Guidelines 02/18/2020 Active 1 goal linked to scheduled/documen mohsen intervention 1 goal intervention scheduled/document ed in this visit Fall Precautions/S afety Concerns Disciplines: Nursing Home Alteration in safety 02/18/2020 Active 1 goal linked to scheduled/documen mohsen intervention 1 goal intervention scheduled/document ed in this visit [place] Precautions Disciplines: Nursing Home [place] Precautions 02/18/2020 Active 1 goal linked to scheduled/documen mohsen intervention 1 goal intervention scheduled/document ed in this visit Goals Goal Associated Problem Outcome Goal Met? Visit Notes Measure vital signs during every home health visit during episode of care Description: Home vocal music instructor to measure vital signs during every home health visit during episode of care. Monitor patient's vital signs every home health visit No Understanding of when to notify MD in absence of home care staff Description: Understanding of when to notify MD in absence of home care staff Standardized Guidelines No Demonstrate use of safety precautions Description: Demonstrate use of safety precautions Fall Precautions/Safety Concerns No Demonstrate knowledge of universal precautions Description: Demonstrate knowledge of universal precautions [place] Precautions No Interventions Intervention Associated Problem/Goal Status Variance Visit Notes Instruct on Medication Management Description: Instruct patient/caregiver in medication administration, purpose, dosages, preparation, scheduling, side effects, food/drug interactions, storage, drug allergies, and potential complication. Problem:Medications Completed Medications reviewed with patient. Patient expressed appropriate understanding. Peripheral Line Description: Instruct patient/caregiver in how to gather supplies, how to restock IV supplies in the home, prepare supplies, administer IV medication and disconnect IV medication, inspecting solution and supplies before infusing, and waste disposal. Problem:IV Therapy-Management, Education, and Maintenance Completed Implanted Venous Access Device (PORT) Dormant Description: Instruct patient/caregiver in strategies to prevent infection:frequent/pro per hand-washing techniques, [place] precautions, Standard precautions, avoid crowds and persons with known infections, staying current with immunizations, s/s of infection, use of incentive spirometer, use of antibiotics and encourage adequate diet and fluid intake. Instruct patient/caregiver on how to recognize signs and symptoms of infection and when to notify HH nurse and/or physician. Problem:IV Therapy-Management, Education, and Maintenance Completed Proper hand hygiene and social distancing and proper preparation of work areas discussed and demonstrated. Patient expressed appropriate understanding. Midline Description: Skilled Nurse to instruct patient/caregiver on [...] circumference weekly and PRN. Type of line: LEFT UPPER EXTREMITY PICC Problem:IV Therapy-Management, Education, and Maintenance Completed Sterile dressing change to PICC site. Site assessed by RN and cleansed with chlorhexidine for 30 seconds and allowed to dry. Steristrip applied. Sorbaview dressing applied. New extensions and claves applied. Connections taped securely. IV Management and Education Description: Skilled Nurse to change line dressing [...] of each line upon completion of infusion/flushes. Problem:IV Therapy-Management, Education, and Maintenance Completed Implanted Venous Access Device (PORT) In Use Description: Instruct patient/caregiver in how to perform flushing of IV line according to MD orders or protocol. Problem:IV Therapy-Management, Education, and Maintenance Completed Monitor Vital Signs Description: Monitor blood pressure, pulse, oxygen saturation, respirations Problem:Monitor patient's vital signs every home health visit Goal:Measure vital signs during every home health visit during episode of care Completed Pt appears well hydrated, weight stable, no dizziness, normal skin turgor, moist mucus membranes, blood pressure appropriate. Collect Specimen/Lab Draw Description: Draw labs per aseptic technique via venipuncture. May use butterfly if hard draw/PICC. WEEKLY CMV PCR, CBC WITH DIFF, BMP, [facility]-INFECTIOUS DISEASE Record number of attempts, delivery to lab Problem:Collect Specimen/Lab Draw Completed Lab specimens obtained from PICC--CBC/diff, BMP, CMV PCR and specimens to [facility]. Home Care Staff Absence Description: In absence of Home Care staff the patient/caregiver should BE ABLE TO SAFELY ADMINISTER OWN IV GANCICLOVIR Problem:Standardized Guidelines Goal:Understanding of when to notify MD in absence of home care staff Completed [place] Fall Precautions Description: Assess patient safety Problem:Fall Precautions/Safety Concerns Goal:Demonstrate use of safety precautions Completed Patient is safe in his home. Aspects of Care Description: Instruct patient/caregiver on universal precautions and home infection control measures Problem:[place] Precautions Goal:Demonstrate knowledge of universal precautions Completed documented in this encounter Home Health Visit - Actions and Narratives Actions CT abdomen scheduled for 04/05 documented in this encounter Care Teams Assistant Professor Of Education Relationship Specialty Start Date End Date Guero Colunga DO PCP - General Internal Medicine 03/22/19 04/18/23 Amber Montesinos, SHAILESH Settlement Processor Transplant 11/17/19 Jil Duncan MD Consulting Physician Infectious Diseases 01/10/20 documented as of this encounter
--- OUTSIDE RECORDS SUMMARY | 2024-10-28 06:20 | XMS_ITS | Encounter Summary ---
Author Organization [facility] Home Care [facility] es Address [address] [place] [address] Phone Care Team Providers Care Sole Cutter Name Role Phone Guero Colunga Primary Care Provider [phone] Amber Montesinos RN Unavailable [phone] Jil Duncan MD Unavailable [phone] Reason for Visit * Auth/Cert Specialty Diagnoses / Procedures Referred By Contac t Referred To Contact Referral ID Status Reason Start Date Expiration Date Visits Re quested Visits Authorized [id number] 1 1 Encounter Details Date Type Department Care Team (Late st Contact Info) Description 03/31/2020 Home Care Visit [facility] [address] [place] [address] Portillo Solares RN TRAVEL SCREENING CASE COMMUNICATION Social History Tobacco Use Types Packs/Day Years Used Date Smoking Tobacco: Never Smokeless Tobacco: Never Alcohol Use Standard Drinks/Week Comments Yes 0 (1 standard drink = 0.6 oz pur e alcohol) occassional Sex and Gender Information Value Date Recorded Sex Assigned at Not on file 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 Gender Identity Not on file Sexual Orientation Straight 08/22/2021 9: 23 AM CDT documented as of this encounter Plan of Treatment Scheduled Procedures Name Priority Associated Diagnoses Date/Ti me COLONOSCOPY Encounter for screening for colorectal cancer in high risk patient Family history of rectal cancer documented as of this encounter Visit Diagnoses Not on filedocumented in this encounter Care Teams Sole Cutter Relationship Specialty Start Date End Date CristineGeneeDO PCP - General Internal Medicine 03/22/19 04/18/23 Amber Montesinos, RN Building Construction Inspector Transplant 11/17/19 Jil Duncan MD Consulting Physician Infectious Diseases 01/10/20 documented as of this encounter
--- OUTSIDE RECORDS SUMMARY | 2024-10-28 06:20 | XMS_ITS | Encounter Summary ---
Author Organization [facility] Address [address] [place] [address] Phone Care Team Providers Care Ice House Supervisor Name Role Phone Guero Colunga DO Primary Care Provider [phone] Amber Montesinos RN Unavailable [phone] Jil Duncan MD Unavailable [phone] Reason for Visit * Reason Onset Date Comments OPAT 03/29/2020 Encounter Details Date Type Department Care Team (Late st Contact Info) Description 03/29/2020 Telephone [facility] Infectious Diseases [facility] Advanced [facility] [address] [place] [address] [place] [address] Ny Griffin OPAT Social History Tobacco Use Types Packs/Day Years Used Date Smoking Tobacco: Never Smokeless Tobacco: Never Alcohol Use Standard Drinks/Week Comments Yes 0 (1 standard drink = 0.6 oz pur e alcohol) occassional Sex and Gender Information Value Date Recorded Sex Assigned at Not on file Legal 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 Gender Identity Not on file Sexual Orientation Straight 08/22/2021 9: 23 AM CDT documented as of this encounter Miscellaneous Notes * Telephone Encounter - Ny Griffin - 03/29/2020 10:58 AM CDT Labs from 03/26/2020 CBC: WBC: 10.0 (11.8) CMP: Alk Phos: 448 (563) ALT: 62 (73) CMV: detected documented in this encounter Plan of Treatment Scheduled Procedures Name Priority Associated Diagnoses Date/Ti me COLONOSCOPY Encounter for screening for colorectal cancer in high risk patient Family history of rectal cancer documented as of this encounter Visit Diagnoses Not on filedocumented in this encounter Care Teams Ice House Supervisor Relationship Specialty Start Date End Date Guero Colunga DO PCP - General Internal Medicine 03/22/19 04/18/23 Amber Montesinos, SHAILESH Book Author Transplant 11/17/19 Jil Duncan MD Consulting Physician Infectious Diseases 01/10/20 documented as of this encounter
--- OUTSIDE RECORDS SUMMARY | 2024-10-28 06:20 | XMS_ITS | Encounter Summary ---
Author Organization [facility] Home Care [facility] Address [address] [place] [address] Phone Care Team Providers Care Resident Doctor Name Role Phone Guero Colunga DO Primary Care Provider [phone] Amber Montesinos RN Unavailable [phone] Jil Duncan MD Unavailable [phone] Reason for Visit * Auth/Cert Specialty Diagnoses / Procedures Referred By Contac t Referred To Contact Referral ID Status Reason Start Date Expiration Date Visits Re quested Visits Authorized [id number] 1 1 Encounter Details Date Type Department Care Team (Latest Contact Info) Description 04/05/2020 10:45 AM CDT Home Care Visit [facility] [address] [place] [id number] Rosalio Montana RN SN NON OASIS DISCHARGE Social History Tobacco Use Types Packs/Day Years Used Date Smoking Tobacco: Never Smokeless Tobacco: Never Alcohol Use Standard Drinks/Week Comments Yes 0 (1 standard drink = 0.6 oz pur e alcohol) occassional Sex and Gender Information Value Date Recorded Sex Assigned at Not on file 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 Gender Identity Not on file Sexual Orientation Straight 08/22/2021 9: 23 AM CDT documented as of this encounter Last Filed Vital Signs Vital Sign Reading Time Taken Comments Blood Pressure 108/64 04/05/2020 2:15 PM CDT Pulse 78 04/05/2020 2:15 PM CDT Temperature 36.1 ??C (97 ??F) 04/05/2020 2:15 PM CDT Respiratory Rate 18 04/05/2020 2:15 PM CDT Oxygen Saturation 98% 04/05/2020 2:15 PM CDT Inhaled Oxygen Concentration - - Weight - - Height - - Body Mass Index - - documented in this encounter Plan of Treatment Scheduled Procedures Name Priority Associated Diagnoses Date/Ti pr COLONOSCOPY Encounter for screening for colorectal cancer in high risk patient Family history of rectal cancer documented as of this encounter Visit Diagnoses Not on filedocumented in this encounter Home Health Visit - Care Plan Visit Details Visit Type -SN Non-OASIS Dis charge Discipline -Fdc Problems Problem Description Start Date Status Goals Interve ntions IV Therapy-Manag ement, Education, and Maintenance Disciplines: Fdc Teaching and learning needs for performing home IV therapy 02/18/2020 Resolved on 04/05/2020 - 1 problem intervention scheduled/document ed in this visit Monitor patient's vital signs every home health visit Disciplines: Fdc Monitor patient's vital signs every home health visit. 02/18/2020 Resolved on 04/05/2020 1 goal linked to scheduled/documen mohsen intervention 1 goal intervention scheduled/document ed in this visit Goals Goal Associated Problem Outcome Goal Met? Visit Notes Measure vital signs during every home health visit during episode of care Description: Home elementary assistant principal to measure vital signs during every home health visit during episode of care. Monitor patient's vital signs every home health visit No Interventions Intervention Associated Problem/Goal Status Variance Visit Notes IV Discontinuation Description: Instruct patient/caregiver on how to remove peripheral IV after last infusion per MD order or instruct on process of removal of Central Venous Catheter if it is to be removed in the home after infusion therapy is completed by Skilled Nurse. Problem:IV Therapy-Management, Education, and Maintenance Completed picc dcd see iv assessment Monitor Vital Signs Description: Monitor blood pressure, pulse, oxygen saturation, respirations Problem:Monitor patient's vital signs every home health visit Goal:Measure vital signs during every home health visit during episode of care Scheduled vss documented in this encounter Care Teams Resident Doctor Relationship Specialty Start Date End Date Guero Colunga DO PCP - General Internal Medicine 03/22/19 04/18/23 Amber Montesinos, SHAILESH Vehicle Dynamics Engineer Transplant 11/17/19 Jil Duncan MD Consulting Physician Infectious Diseases 01/10/20 documented as of this encounter
--- OUTSIDE RECORDS SUMMARY | 2024-10-28 06:20 | XMS_ITS | Encounter Summary ---
Author Organization [facility] Healthcare Address [address] [place] [address] Care Team Providers Care Balance Bridge Assembler Name Role Phone Guero Colunga Primary Care Provider [phone] Amber Montesinos RN Unavailable [phone] Jil Duncan MD Unavailable [phone] Encounter Details Date Type Department Care Team (Late st Contact Info) Description 03/22/2020 6:00 PM CDT Lab [address] [address] Social History Tobacco Use Types Packs/Day Years Used Date Smoking Tobacco: Never Smokeless Tobacco: Never Alcohol Use Standard Drinks/Week Comments Yes 0 (1 standard drink = 0.6 oz pur e alcohol) occassional Sex and Gender Information Value Date Recorded Sex Assigned at Not on file 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 Gender Identity Not on file Sexual Orientation Straight 08/22/2021 9: 23 AM CDT documented as of this encounter Plan of Treatment Pending Results Name Type Priority Associated Diagnoses Date /Time Comprehensive metabolic panel (Outreach) Lab Routine 03/22/2020 6:34 PM CDT Scheduled Procedures Name Priority Associated Diagnoses Date/Ti me COLONOSCOPY Encounter for screening for colorectal cancer in high risk patient Family history of rectal cancer documented as of this encounter Procedures Procedure Name Priority Date/Time Associated Diagnosis Comments GLUCOSE, RANDOM (OUTREACH) Routine 03/22/2020 2:22 PM CDT EGFR Routine 03/22/2020 2:22 PM CDT COMPREHENSIVE METABOLIC PANEL WITHOUT GLUCOSE (OUTREACH) Routine 03/22/2020 2:22 PM CDT CBC WITH AUTO DIFFERENTIAL Routine 03/22/2020 2:22 PM CDT MANUAL DIFFERENTIAL Routine 03/22/2020 2 :22 PM CDT documented in this encounter Results * (ABNORMAL) Manual Differential (03/22/2020 2:22 PM CDT) Differential Manual [facility] Cells Counted 100 [facility] Neutrophil abs 4.8 1.7 - 6.5 K/cumm [facility] Lymphocyte abs 4.7(H) 0.8 - 3.3 K/cumm [facility] Monocyte abs 1.9(H) 0.2 - 0.8 K/cumm [facility] Eosinophil abs 0.2 0.0 - 0.5 K/cumm [facility] Basophil abs 0.1 0.0 - 0.1 K/cumm [facility] Neutrophil pct 41.0 % [facility] Comment: Interpretive Data Percent cell count reference ranges are not reported, since discordance with absolute values may lead to misinterpretation of CBC data. Current Interpretive Data was last revised on 2018. Lymphocyte pct 32.0 % [facility] Comment: Interpretive Data Percent cell count reference ranges are not reported, since discordance with absolute values may lead to misinterpretation of CBC data. Current Interpretive Data was last revised on 2018. Monocyte pct 16.0 % [facility] Comment: Interpretive Data Percent cell count reference ranges are not reported, since discordance with absolute values may lead to misinterpretation of CBC data. Current Interpretive Data was last revised on 2018. Eosinophil pct 2.0 % [facility] Comment: Interpretive Data Percent cell count reference ranges are not reported, since discordance with absolute values may lead to misinterpretation of CBC data. Current Interpretive Data was last revised on 2018. Basophil pct 1.0 % [facility] Comment: Interpretive Data Percent cell count reference ranges are not reported, since discordance with absolute values may lead to misinterpretation of CBC data. Current Interpretive Data was last revised on 2018. Variant lymph pct 8.0(H) 0.0 - 0.0 % [facility] RBC morphology Consistent with RBC Indicies LEXIFRANCISCO WHITAKER Platelet estimate Automated Count Confirmed [facility] Blood specimen (specimen) 03/22/2020 2:22 PM CDT 03/22/2020 6:16 PM CDT Guero Colunga DO LAB BLOOD ORDERABLES Final Resul t [facility] [address] [place] [address] * eGFR (03/22/2020 2:22 PM CDT) eGFR 135 mL/min/1.7 3 m2 [facility] Comment: Interpretive Data Reference Interval Normal ?>/= 90 mL/min/1.73m2 Mildly decreased* ? 60 - 89 mL/min/1.73m2 Mildly to moderately decreased ?45 - 59 mL/min/1.73m2 Moderately to severely decreased ??30 - 44 mL/min/1.73m2 Severely decreased ?15 - 29 mL/min/1.73m2 Kidney Failure ?< 15 ??mL/min/1.73m2 *Relative to young adult level If -Citizen Of [place] multiply value by 1.16. Estimated glomerular filtration rate is determined by [...] 70. Current interpretive data was last reviewed 2016. Blood specimen (specimen) 03/22/2020 2:22 PM CDT 03/22/2020 6:16 PM CDT us Guerodenise Colunga DO LAB BLOOD ORDERABLES Final Resul t [facility] [address] [place] [address] * (ABNORMAL) CBC with auto differential (03/22/2020 2:22 PM CDT) WBC 11.8(H) 3.8 - 9.9 K/cumm [facility] Hgb 15.3 13.0 - 17.5 g/dL [facility] Hct 42.8 38.9 - 50.3 % [facility] Plt 164 150 - 400 K/cumm [facility] MPV 10.6 9.1 - 12.3 fL [facility] RBC 4.46 4.30 - 5.80 M/cumm [facility] MCV 96.0 81.3 - 96.4 fL [facility] MCH 34.3(H) 27.1 - 33.3 pg [facility] MCHC 35.7 32.3 - 35.7 g/dL [facility] RDW CV 16.2(H) 11.1 - 14.9 % [facility] RDW SD 57.8(H) 35.7 - 48.1 fL [facility] NRBC abs 0.00 0.00 - 0.01 K/cumm [facility] Blood specimen (specimen) 03/22/2020 2:22 PM CDT 03/22/2020 5:59 PM CDT Narrative [facility] - 03/22/2020 7:24 PM CDT DIANNA DANIELS RN [phone] Guero Colunga DO LAB BLOOD ORDERABLES Edited Resu lt - Final [facility] [address] Department of Laboratories [place], [place] [id number] * Glucose, random (Outreach) (03/22/2020 2:22 PM CDT) Glucose 104 70 - 199 mg/dL [facility] Comment: Interpretive Data Fasting glucose [...] was last revised 2017. Blood specimen (specimen) 03/22/2020 2:22 PM CDT 03/22/2020 5:58 PM CDT Narrative [facility] - 03/22/2020 6:35 PM CDT DIANNA DANIELS RN [phone] us Guero Colunga DO LAB BLOOD ORDERABLES Final Resul t [facility] [address] [place] [address] * (ABNORMAL) Comprehensive metabolic panel, without glucose (Outreach) (03/22/2020 2:22 PM CDT) Sodium 141 135 - 145 mmol/L [facility] Potassium, pl 4.3 3.3 - 4.9 mmol/L [facility] Chloride 105 97 - 110 mmol/L [facility] CO2 23 22 - 32 mmol/L [facility] Anion gap 13 2 - 15 mmol/L [facility] BUN 10 8 - 25 mg/dL [facility] Creatinine 0.63(L) 0.80 - 1.30 mg/dL [facility] Calcium 8.9 8.5 - 10.3 mg/dL [facility] Protein, pl 6.0(L) 6.5 - 8.5 g/dL [facility] Albumin 4.5 3.5 - 5.0 g/dL [facility] Bilirubin, total 0.7 0.1 - 1.2 mg/dL [facility] Alk phos 563(H) 40 - 130 Units/L [facility] AST 70(H) 10 - 50 Units/L [facility] ALT 73(H) 7 - 55 Units/L [facility] Blood specimen (specimen) 03/22/2020 2:22 PM CDT 03/22/2020 5:58 PM CDT Narrative [facility] - 03/22/2020 6:34 PM CDT DIANNA DANIELS RN [phone] Guero Colunga DO LAB BLOOD ORDERABLES Final Resul t [facility] [address] Department [place] [address] documented in this encounter Visit Diagnoses Not on filedocumented in this encounter Care Teams Balance Bridge Assembler Relationship Specialty Start Date End Date Guero Colunga DO PCP - General Internal Medicine 03/22/19 04/18/23 Amber Montesinos, SHAILESH Electrical Parts Reconditioner Transplant 11/17/19 Jil Duncan MD Consulting Physician Infectious Diseases 01/10/20 documented as of this encounter
--- OUTSIDE RECORDS SUMMARY | 2024-10-28 06:20 | XMS_ITS | Encounter Summary ---
Author Organization [facility] Address [address] [place] [address] Phone Care Team Providers Care Legislators Name Role Phone Guero Colunga DO Primary Care Provider [phone] Amber Montesinos RN Unavailable [phone] Jil Duncan MD Unavailable [phone] Reason for Visit * Reason Onset Date Comments OPAT 04/04/2020 Encounter Details Date Type Department Care Team (Late st Contact Info) Description 04/04/2020 Telephone [facility] Infectious Diseases [address] [place] [id number] Ny Griffin OPAT Social History Tobacco Use Types Packs/Day Years Used Date Smoking Tobacco: Never Smokeless Tobacco: Never Alcohol Use Standard Drinks/Week Comments Yes 0 (1 standard drink = 0.6 oz pur e alcohol) occassional Sex and Gender Information Value Date Recorded Sex Assigned at Not on file 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 They are fine with the plan. Will stop IV ganciclovir. Monitor symptoms and check CMV PCR weekly at least for the first 1-2 weeks and then twice weekly. We will try to have his CMV PCR's done through our lab for uniformity and not through [facility] ? Yes please d/c PICC Many thanks Jil ----- Message ----- From: Leida Vela RPh Sent: 04/04/2020 11:07 AM CDT To: Jil Graham MD, # Subject: RE: Lab Results I just heard from Beka's mom that the IV ganciclovir is going to be discontinued for the time being and his PICC line removed. He has doses at home through end of day today. Would you like for me to set up HH to remove his line? Just wanted to confirm. Thanks! Kina ----- Message ----- From: Lisandra Auguste NP Sent: 04/03/2020 10:25 AM CDT To: Leida Vela RPh, Ny Parks, # Subject: RE: Lab Results We will likely have to discuss with his oncology team also since his viral load increased so much. Lets send him enough meds for another week. We will follow up with him on Wednesday and discuss the possibility of transitioning to orals vs continuing IV. Lisandra ----- Message ----- From: Leida Vela RPh Sent: 04/03/2020 10:07 AM CDT To: Jil Graham MD, # Subject: RE: Lab Results I called mom and she said he has not missed any doses. She wanted to wait to hear back from you allbefore setting up his next delivery of IV ganciclovir in hopes that he would be transitioning to PO. We will need to compound it today if possible. I told her I would give her a call back this afternoon. Thanks! Kina ----- Message ----- From: Lisandra Auguste NP Sent: 04/03/2020 9:09 AM CDT To: Leida Vela RPh, Ige Sonido Duncan MD, # Subject: RE: Lab Results Not sure whats going on with him. I think he has an appointment with us in the next couple weeks solets continue as long as he is tolerating well. Ige, anything else you need me to do? Lisandra ----- Message ----- From: Leida Vela RPh Sent: 04/03/2020 8:59 AM CDT To: Lisandra Auguste NP, [facility] Im Id Nurse Pool Subject: RE: Lab Results Boom Fry CMV came back positive from 04/01/20. It looks like the viral load is actually increased from previously. I am planning to call his mom today and make sure he has not missed any doses. WBC=7.6 ANC=3.2 Kina ----- Message ----- From: Lisandra Auguste NP Sent: 03/27/2020 10:22 AM CDT To: Leida Vela RPh, King Im Id Nurse Pool Subject: RE: Lab Results Yes, lets continue for another week and keep a close eye on his CBC. Thanks Kina! ----- Message ----- From: Leida Vela RPh Sent: 03/27/2020 10:11 AM CDT To: Lisandra Auguste NP, [facility] Id Nurse Pool Subject: RE: Lab Results Boom CMV came back positive from 03/25/20. Would you like to continue IV ganciclovir for anotherweek? WBC=10.0 ANC=4.3 Thanks! Kina ----- Message ----- From: Lisandra Auguste NP Sent: 03/19/2020 12:18 PM CDT To: Leida Vela RPh, [facility] Id Nurse Pool Subject: RE: Lab Results Yes, continue ganciclovir another week. If CMV level suppressed we will consider switch to PO ----- Message ----- From: Leida Vela RPh Sent: 03/19/2020 12:15 PM CDT To: Lisandra Auguste NP, [facility] Id Nurse Pool Subject: RE: Lab Results I will check with nursing and have them get him on the schedule. Plan to continue ganciclovir for another week? ----- Message ----- From: Lisandra Auguste NP Sent: 03/19/2020 11:58 AM CDT To: Leida Vela RPh, [facility] Id Nurse Pool Subject: RE: Lab Results Lets get a CBC and CMV PCR on Wednesday if possible. Just want to see what his counts do after a few days off neupogen Thanks Kina! ----- Message ----- From: Leida Vela RPh Sent: 03/19/2020 11:38 AM CDT To: Lisandra Auguste NP, Im Id Nurse Pool Subject: RE: Lab Results Nabila Fry repeat CBC from yesterday has resulted. WBC=58.7 ANC= 52.9 It does not look like they got a CMV PCR. Would you still like to have this on 03/20/20? Beka should have doses of ganciclovir at home through end of day 03/21/20. Thanks! Kina ----- Message ----- From: Lisandra Auguste NP Sent: 03/15/2020 6:02 PM CDT To: Leida Vela RPh, Gage Noel [facility], # Subject: RE: Lab Results Sent an email also but I spoke with Dr. Duncan who wants to continue ganciclovir and start filgrastim-sndz injection 300 mcg daily until Wednesday and recheck. Is this something you can provide and deliver to him over the weekend? ----- Message ----- From: Leida Vela RPh Sent: 03/15/2020 3:36 PM CDT To: Lisandra Auguste NP, Gage Noel [facility], # Subject: RE: Lab Results Labs from today have resulted. WBC=6.4 ANC=0.6 I will be out of the office after 4 today so I have added Gage to this message. He will be workingthis weekend as well. Thanks! Kina ----- Message ----- From: Lisandra Auguste NP Sent: 03/13/2020 5:11 PM CDT To: Leida Vela RPh, [facility] Id Nurse Pool Subject: RE: Lab Results Not great news. We are hoping to keep him on IV until his viral load is undetectable. Lets continuefor now and repeat a CBC on Wednesday morning. If it continues to decrease we will have to possibly decrease dose or switch to orals based on CMV level. ----- Message ----- From: Leida Vela RPh Sent: 03/13/2020 3:20 PM CDT To: Lisandra Auguste NP, [facility] Id Nurse Pool Subject: Lab Results Beka's labs from 03/12/20 are significant for decreased ANC. WBC=6.3 ANC=1.4 Onl=933 CMV pending It looks like he had a follow up with oncology today but I do not see a note in yet. Let me know how you would like to proceed. Thanks! Kina documented in this encounter Plan of Treatment Scheduled Procedures Name Priority Associated Diagnoses Date/Ti me COLONOSCOPY Encounter for screening for colorectal cancer in high risk patient Family history of rectal cancer documented as of this encounter Visit Diagnoses Not on filedocumented in this encounter Care Teams Legislators Relationship Specialty Start Date End Date Guero Colunga DO PCP - General Internal Medicine 03/22/19 04/18/23 Amber Montesinos RN Fitness Centre Manager Transplant 11/17/19 Jil Duncan MD Consulting Physician Infectious Diseases 01/10/20 documented as of this encounter
--- OUTSIDE RECORDS SUMMARY | 2024-10-28 06:20 | XMS_ITS | Encounter Summary ---
Author Organization [facility] Address [address] [place] [address] Phone Care Team Providers Care Head Of Sales Name Role Phone Guero Colunga DO Primary Care Provider [phone] Amber Montesinos RN Unavailable [phone] Jil Duncan MD Unavailable [phone] Reason for Visit * Reason Onset Date Comments OPAT 04/03/2020 Encounter Details Date Type Department Care Team (Late st Contact Info) Description 04/03/2020 Telephone [facility] Infectious Diseases [address] [place] [phone] Ny Griffin OPAT Social History Tobacco Use Types Packs/Day Years Used Date Smoking Tobacco: Never Smokeless Tobacco: Never Alcohol Use Standard Drinks/Week Comments Yes 0 (1 standard drink = 0.6 oz pur e alcohol) occassional Sex and Gender Information Value Date Recorded Sex Assigned at Not on file 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 ThanksNy ----- Message ----- From: Leida Vela RPh [...] AM CDT To: Leida Vela RPh, Ige Abraham George, MD, # Subject: RE: Lab Results Not [...] Id Nurse Pool Subject: RE: Lab Results Beka Fry's CMV came back positive from 04/01/20. It [...] Id Nurse Pool Subject: RE: Lab Results Beka's CMV came back positive from 03/25/20. Would [...] 11:38 AM CDT To: Lisandra Auguste NP, King [...] PM CDT To: Leida Vela RPh, [facility], # Subject: RE: Lab Results Sent an email also but I spoke with Dr. Duncan who wants to continue ganciclovir and start filgrastim-sndz injection 300 mcg daily until Wednesday and recheck. Is this something you can provide and deliver to him over the weekend? ----- Message ----- From: Leida Vela RPh Sent: 03/15/2020 3:36 PM CDT To: Lisandra Auguste NP, Gage Noel, [facility], # Subject: RE: Lab Results Labs from today have resulted. WBC=6.4 ANC=0.6 I will be out of the office after 4 today so I have added Gage to this message. He will be workingthis weekend as well. Thanks! Kina ----- Message ----- From: Lisandra Auguste NP Sent: 03/13/2020 5:11 PM CDT To: Leida Vela [facility], [facility] Id Nurse Pool Subject: RE: [...] are significant for decreased ANC. WBC=6.3 ANC=1.4 Acp=585 CMV pending It looks like he had [...] on filedocumented in this encounter Care Teams Head Of Sales Relationship Specialty Start Date End Date Guero Colunga DO PCP - General Internal Medicine 03/22/19 04/18/23 Amber Montesinos, RN Chlorine Cell Tender Transplant 11/17/19 Jil Duncan MD Consulting Physician Infectious Diseases 01/10/20 documented as of this encounter
--- OUTSIDE RECORDS SUMMARY | 2024-10-28 06:20 | XMS_ITS | Encounter Summary ---
Author Organization [facility] Address [address] [place] [address] Phone Care Team Providers Care [employer]et [employer] Name Role Phone Guero Colunga DO Primary Care Provider [phone] Amber Montesinos RN Unavailable [phone] Jil Duncan MD Unavailable [phone] Encounter Details Date Type Department Care Team (Late st Contact Info) Description 04/03/2020 Telephone [facility] Infectious Diseases [facility] Medicine [address] [place] [address] [place] [address] Pavan Owen, [facility] Social History Tobacco Use Types Packs/Day Years Used Date Smoking Tobacco: Never Smokeless Tobacco: Never Alcohol Use Standard Drinks/Week Comments Yes 0 (1 standard drink = 0.6 oz pur e alcohol) occassional Sex and Gender Information Value Date Recorded Sex Assigned at Not on file Legal 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 Make sure he is not missing any doses. * Telephone Encounter - Ny Griffin - 04/03/2020 9:46 AM CDT OK, let me know if I need to add anything to the discussion when I call. It won't until this afternoon as I am in clinic this am * Telephone Encounter - Lisandra Auguste NP - 04/03/2020 9:45 AM CDT CBC looks good. CMV viral load is higher. I have reached out to Ige but we will continue his IV antiviral for now. He has follow up on on Wednesday * Telephone Encounter - Ny Griffin - 04/03/2020 9:37 AM CDT Lisandra, See below * Telephone Encounter - Pavan Owen RMA - 04/03/2020 9:24 AM CDT Pt mom requesting lab results. documented in this encounter Plan of Treatment Scheduled Procedures Name Priority Associated Diagnoses Date/Ti me COLONOSCOPY Encounter for screening for colorectal cancer in high risk patient Family history of rectal cancer documented as of this encounter Visit Diagnoses Not on filedocumented in this encounter Care Teams [employer]et [employer] Relationship Specialty Start Date End Date Guero Colunga DO PCP - General Internal Medicine 03/22/19 04/18/23 Amber Montesinos, SHAILESH Refractory Grinder Operator Transplant 11/17/19 Jil Duncan MD Consulting Physician Infectious Diseases 01/10/20 documented as of this encounter
--- OUTSIDE RECORDS SUMMARY | 2024-10-28 06:20 | XMS_ITS | Encounter Summary ---
Author Organization [facility] Address [address] [place] [address] Phone Care Team Providers Care Studio Couch Frame Builder Name Role Phone Guero Colunga DO Primary Care Provider [phone] Amber Montesinos RN Unavailable [phone] Jil Duncan MD Unavailable [phone] Reason for Visit * Auth/Cert Specialty Diagnoses / Procedures Referred By Contac t Referred To Contact Referral ID Status Reason Start Date Expiration Date Visits Re quested Visits Authorized [id number] 1 1 Encounter Details Date Type Department Care Team (Late st Contact Info) Description 04/05/2020 Home Care Visit [facility] [address] [place] [address] Rosalio Montana RN TRAVEL SCREENING CASE COMMUNICATION Social History Tobacco Use Types Packs/Day Years Used Date Smoking Tobacco: Never Smokeless Tobacco: Never Alcohol Use Standard Drinks/Week Comments Yes 0 (1 standard drink = 0.6 oz pur e alcohol) occassional Sex and Gender Information Value Date Recorded Sex Assigned at Not on file 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 Gender Identity Not on file Sexual Orientation Straight 08/22/2021 9: 23 AM CDT documented as of this encounter Plan of Treatment Scheduled Procedures Name Priority Associated Diagnoses Date/Ti me COLONOSCOPY Encounter for screening for colorectal cancer in high risk patient Family history of rectal cancer documented as of this encounter Visit Diagnoses Not on filedocumented in this encounter Care Teams Studio Couch Frame Builder Relationship Specialty Start Date End Date CristineGeneeDO PCP - General Internal Medicine 03/22/19 04/18/23 Amber Montesinos, RN Production Sorter Transplant 11/17/19 Jil Duncan MD Consulting Physician Infectious Diseases 01/10/20 documented as of this encounter
--- OUTSIDE RECORDS SUMMARY | 2024-10-28 06:20 | XMS_ITS | Encounter Summary ---
Author Organization [facility] Address [address] [place] [address] Phone Care Team Providers Care Chisel Mortiser Operator Name Role Phone Guero Colunga DO Primary Care Provider [phone] Amber Montesinos RN Unavailable [phone] Jil Duncan MD Unavailable [phone] Encounter Details Date Type Department Care Team (Late st Contact Info) Description 04/05/2020 Orders Only [facility] Infectious Diseases [address] [place] [address] [address] [place] [address] Lisandra Auguste NP [address] [facility] [address] [place] [address] Cytomegalovirus (CMV) viremia (CMS/HCC) (Primary Dx) Social History Tobacco Use Types Packs/Day Years Used Date Smoking Tobacco: Never Smokeless Tobacco: Never Alcohol Use Standard Drinks/Week Comments Yes 0 (1 standard drink = 0.6 oz pur e alcohol) occassional Sex and Gender Information Value Date Recorded Sex Assigned at Not on file 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 IV ganciclovir stopped yesterday. He will need repeat CMV PCR in 7-10 days. Order placed to have it drawn at [facility] lab and instructions given to his mother. Once we have received result we will contact them for further instruction and follow up if needed. documented in this encounter Plan of Treatment Scheduled Procedures Name Priority Associated Diagnoses Date/Ti me COLONOSCOPY Encounter for screening for colorectal cancer in high risk patient Family history of rectal cancer documented as of this encounter Results * Cytomegalovirus (CMV) DNA PCR, quantitative Blood (04/13/2020 8:38 AM CDT) CMV DNA Not Detected [facility] Comment: Interpretive Data: The quantifiable range of this assay is 137 IUnits/mL to 9,100,000 IUnits/mL (2.14 log IUnits/mL to 6.96 log IUnits/mL). Testing was performed by the NIA AmpliPrep/NIA TaqMan CMV Test ([employer] Testing performed at [facility] Current interpretive data was last revised on 17. 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
--- OUTSIDE RECORDS SUMMARY | 2024-10-28 06:20 | XMS_ITS | Encounter Summary ---
Author Organization [facility] Address [address] [place] [address] Care Team Providers Care Gis Programmer Name Role Phone Guero Colunga Primary Care Provider Amber Montesinos RN Unavailable [phone] Jil Duncan MD Unavailable [phone] Encounter Details Date Type Department Care Team (Late st Contact Info) Description 04/27/2020 8:35 AM CDT Lab [facility] Advanced Medicine 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 Please forward me results of next CMV DNA. Thanks so much for your help! * Result Encounter Note - Lisandra Auguste NP - 04/29/2020 8:50 AM CDT Thanks Amber. Dr. Duncan and I were just speaking about this. If he is doing well, asymptomatic, and liver enzymes are stable we will continue to monitor and repeat in 2 weeks. documented in this encounter Plan of Treatment Scheduled Procedures Name Priority Associated Diagnoses Date/Ti me COLONOSCOPY Encounter for screening for colorectal cancer in high risk patient Family history of rectal cancer documented as of this encounter Procedures Procedure Name Priority Date/Time Associated Diagnosis Comments CYTOMEGALOVIRUS (CMV) DNA, QUANT GEN LAB Routine 04/27/2020 8:32 AM CDT History of liver transplant (CMS/HCC) DIFFERENTIAL AUTO Routine 04/27/2020 8:3 1 AM CDT History of liver transplant (CMS/HCC) TACROLIMUS LEVEL, TROUGH Routine 04/27/2020 8:31 AM CDT History of liver transplant (CMS/HCC) CBC WITH AUTO DIFFERENTIAL Routine 04/27/2020 8:31 AM CDT History of liver transplant (CMS/HCC) GAMMA GT Routine 04/27/2020 8:31 AM CDT History of liver transplant (CMS/HCC) COMPREHENSIVE METABOLIC PANEL Routine 04/27/2020 8:31 AM CDT History of liver transplant (CMS/HCC) documented in this encounter Results * (ABNORMAL) Cytomegalovirus (CMV) DNA PCR, quantitative Blood (04/27/2020 8:32 AM CDT) [facility] CMV DNA Detected( Radhames) [facility] Comment: Interpretive Data: The quantifiable range of this assay is 137 IUnits/mL to 9,100,000 IUnits/mL (2.14 log IUnits/mL to 6.96 log IUnits/mL). Testing was performed by the NIA AmpliPrep/NIA TaqMan CMV Test ([employer] Testing performed at [facility] Current interpretive data was last revised on 17. CMV DNA IU/mL 1,364 IUnits/mL [facility] CMV DNA log IU/mL 3.13 log IUnits/mL [facility] Blood specimen (specimen) 04/27/2020 8:32 AM CDT 04/27/2020 9:25 PM CDT Narrative [facility] - 04/28/2020 4:41 AM CDT . us Theodore Gresham MD LAB MICROBIOLOGY - GENERAL ORDERABLES Final Result [facility] Department [place] [address] * (ABNORMAL) Differential, auto (04/27/2020 8:31 AM CDT) Neutrophil abs 4.7 1.7 - 6.5 K/cumm [facility] Imm gran abs 0.2(H) 0.0 - 0.1 K/cumm [facility] Lymphocyte abs 4.6(H) 0.8 - 3.3 K/cumm [facility] Monocyte abs 3.2(H) 0.2 - 0.8 K/cumm [facility] Eosinophil abs 1.7(H) 0.0 - 0.5 K/cumm [facility] Basophil abs 0.1 0.0 - 0.1 K/cumm [facility] Neutrophil pct 32.0 % [facility] Comment: Interpretive Data Percent cell count reference ranges are not reported, since discordance with absolute values may lead to misinterpretation of CBC data. Current Interpretive Data was last revised on 2018. Imm gran pct 1.6 % [facility] Comment: Interpretive Data Percent cell count reference ranges are not reported, since discordance with absolute values may lead to misinterpretation of CBC data. Current Interpretive Data was last revised on 2018. Lymphocyte pct 31.8 % [facility] Comment: Interpretive Data Percent cell count reference ranges are not reported, since discordance with absolute values may lead to misinterpretation of CBC data. Current Interpretive Data was last revised on 2018. Monocyte pct 22.2 % [facility] Comment: Interpretive Data Percent cell count reference ranges are not reported, since discordance with absolute values may lead to misinterpretation of CBC data. Current Interpretive Data was last revised on 2018. Eosinophil pct 11.4 % [facility] Comment: Interpretive Data Percent cell count reference ranges are not reported, since discordance with absolute values may lead to misinterpretation of CBC data. Current Interpretive Data was last revised on 2018. Basophil pct 1.0 % [facility] Comment: Interpretive Data Percent cell count reference ranges are not reported, since discordance with absolute values may lead to misinterpretation of CBC data. Current Interpretive Data was last revised on 2018. Blood specimen (specimen) 04/27/2020 8:31 AM CDT 04/27/2020 8:48 AM CDT Theodore Gresham MD LAB BLOOD ORDERABLES Final Result [facility] Department [place] [address] * (ABNORMAL) CBC with auto differential (04/27/2020 8:31 AM CDT) WBC 14.6(H) 3.8 - 9.9 K/cumm [facility] Hgb 15.1 13.0 - 17.5 g/dL [facility] Hct 42.6 38.9 - 50.3 % [facility] Plt 275 150 - 400 K/cumm [facility] MPV 10.2 9.1 - 12.3 fL [facility] RBC 4.42 4.30 - 5.80 M/cumm [facility] MCV 96.4 81.3 - 96.4 fL [facility] MCH 34.2(H) 27.1 - 33.3 pg [facility] MCHC 35.4 32.3 - 35.7 g/dL [facility] RDW CV 15.1(H) 11.1 - 14.9 % [facility] RDW SD 54.4(H) 35.7 - 48.1 fL [facility] NRBC abs 0.00 0.00 - 0.01 K/cumm [facility] Blood specimen (specimen) 04/27/2020 8:31 AM CDT 04/27/2020 8:48 AM CDT Narrative [facility] - 04/27/2020 9:42 AM CDT . Theodore Gresham MD LAB BLOOD ORDERABLES Final Result [facility] Department [place] [address] * (ABNORMAL) Comprehensive metabolic panel (04/27/2020 8:31 AM CDT) Sodium 142 135 - 145 mmol/L [facility] Potassium, pl 4.4 3.3 - 4.9 mmol/L [facility] Chloride 105 97 - 110 mmol/L [facility] CO2 30 22 - 32 mmol/L [facility] Anion gap 7 2 - 15 mmol/L [facility] BUN 14 8 - 25 mg/dL [facility] Creatinine 0.93 0.80 - 1.30 mg/dL [facility] Glucose 106 70 - 199 mg/dL [facility] Comment: Interpretive Data Fasting glucose >/= [...] 2017. Calcium 9.3 8.5 - 10.3 mg/dL [facility] Bilirubin, total 0.4 0.1 - 1.2 mg/dL [facility] Protein, pl 5.9(L) 6.5 - 8.5 g/dL [facility] Albumin 4.2 3.5 - 5.0 g/dL [facility] Alk phos 418(H) 40 - 130 Units/L [facility] ALT 59(H) 7 - 55 Units/L [facility] AST 47 10 - 50 Units/L [facility] Blood specimen (specimen) 04/27/2020 8:31 AM CDT 04/27/2020 8:48 AM CDT Narrative [facility] - 04/27/2020 10:08 AM CDT . us Theodore Gresham MD LAB BLOOD ORDERABLES Final Result Performing Organization Address [facility] Co de Phone Number [facility] [place] [address] * (ABNORMAL) Gamma GT (04/27/2020 8:31 AM CDT) GGT 311(H) 10 - 50 Units/L [facility] Blood specimen (specimen) 04/27/2020 8:31 AM CDT 04/27/2020 8:48 AM CDT Narrative [facility] - 04/27/2020 9:38 AM CDT . us Theodore Gresham MD LAB BLOOD ORDERABLES Final Result Performing Organization Address [facility] de Phone Number [facility] [place] [address] * Tacrolimus level trough (04/27/2020 8:31 AM CDT) Tacrolimus trough 4.9 ng/mL [facility] Comment: Interpretive Data Testing performed by liquid chromatography-tandem mass spectrometry. ??Therapeutic concentrations vary depending on type of transplanted organ and time elapsed since transplant. ??Typical trough concentrations range from 5-15 ng/mL. ??This test was developed and its performance characteristics determined by the [facility] consistent with CLIA requirements. ??This test has not been cleared or approved by the [place] Food and Drug administration. ??Current interpretive data last reviewed 2020. Blood specimen (specimen) 04/27/2020 8:31 AM CDT 04/27/2020 8:48 AM CDT Narrative [facility] - 04/27/2020 11:27 AM CDT . Theodore Gresham MD LAB BLOOD ORDERABLES Final Result Performing Organization Address City/State/[facility] Co de Phone Number [facility] Department [place] [address] documented in this encounter Visit Diagnoses Diagnosis History of liver transplant (CMS/HCC) (HCC) Liver replaced by transplant documented in this encounter Care Teams Gis Programmer Relationship Specialty Start Date End Date Guero Colunga DO PCP - General Internal Medicine 03/22/19 04/18/23 Amber Montesinos RN Linseed Oil Refiner Transplant 11/17/19 Jil Duncan MD Consulting Physician Infectious Diseases 01/10/20 documented as of this encounter
--- OUTSIDE RECORDS SUMMARY | 2024-10-28 06:20 | XMS_ITS | Encounter Summary ---
Author Organization [facility] Address [address] [place] [address] Phone Care Team Providers Care Php Magento Developer Name Role Phone Guero Colunga Primary Care Provider [phone] mAber Montesinos RN Unavailable [phone] Jil Duncan MD Unavailable [phone] Encounter Details Date Type Department Care Team (Late st Contact Info) Description 04/04/2020 Orders Only [facility] [address] [place] [address] Leida Obrien RPh Social History Tobacco Use Types Packs/Day Years Used Date Smoking Tobacco: Never Smokeless Tobacco: Never Alcohol Use Standard Drinks/Week Comments Yes 0 (1 standard drink = 0.6 oz pur e alcohol) occassional Sex and Gender Information Value Date Recorded Sex Assigned at Not on file 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 Duncan/Radhames Vela PharmD Discontinue IV ganciclovir after completion of all doses on 04/04/20 okay for extra SNV to remove PICC line documented in this encounter Plan of Treatment Scheduled Procedures Name Priority Associated Diagnoses Date/Ti me COLONOSCOPY Encounter for screening for colorectal cancer in high risk patient Family history of rectal cancer documented as of this encounter Visit Diagnoses Not on filedocumented in this encounter Care Teams Php Magento Developer Relationship Specialty Start Date End Date Guero Colunga DO PCP - General Internal Medicine 03/22/19 04/18/23 Amber Montesinos, SHAILESH Glass Cut Off Tender Transplant 11/17/19 Jil Duncan MD Consulting Physician Infectious Diseases 01/10/20 documented as of this encounter
--- OUTSIDE RECORDS SUMMARY | 2024-10-28 06:20 | XMS_ITS | Encounter Summary ---
Author Organization [facility] Address [address] [place] [address] Phone Care Team Providers Care Mortgage Consultant Name Role Phone Guero Colunga Primary Care Provider [phone] Amber Montesinos RN Unavailable [phone] Jil Duncan MD Unavailable [phone] Reason for Visit * Auth/Cert Specialty Diagnoses / Procedures Referred By Contac t Referred To Contact Referral ID Status Reason Start Date Expiration Date Visits Re quested Visits Authorized [id number] 1 1 Encounter Details Date Type Department Care Team (Late st Contact Info) Description 04/01/2020 12:15 PM CDT Home Care Visit [facility] [address] [place] [id number] Parish Vyas, SHAILESH SN HOME VISIT Social History Tobacco Use Types Packs/Day Years Used Date Smoking Tobacco: Never Smokeless Tobacco: Never Alcohol Use Standard Drinks/Week Comments Yes 0 (1 standard drink = 0.6 oz pur e alcohol) occassional Sex and Gender Information Value Date Recorded Sex Assigned at Not on file 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 Gender Identity Not on file Sexual Orientation Straight 08/22/2021 9: 23 AM CDT documented as of this encounter Last Filed Vital Signs Vital Sign Reading Time Taken Comments Blood Pressure 105/60 04/01/2020 12:58 PM CDT Pulse 60 04/01/2020 12:58 PM CDT Temperature 36.8 ??C (98.2 ??F) 04/01/2020 12:58 PM C DT Respiratory Rate 14 04/01/2020 12:58 PM CDT Oxygen Saturation 99% 04/01/2020 12:58 PM CDT Inhaled Oxygen Concentration - - Weight 61.2 kg (135 lb) 04/01/2020 12:58 PM CDT Height 172.7 cm (5' 8 ) 04/01/2020 12:58 PM CDT Body Mass Index 20.53 04/01/2020 12:58 PM CDT documented in this encounter Plan [...] mL, intravenous, As needed, patency, Starting on Wed04/01/20 at 1302, Indications: Maintain Patency of Indwelling Vascular CatheterIndications:Maintain Patency of Indwelling Vascular Catheter Given 04/01/2020 1:02 PM CDT 5 mL sodium chloride 0.9 %, flush, (SALINE FLUSH INJ) 10 mL, intravenous, As needed, patency, Starting on Wed04/01/20 at 1302, Indications: Maintain Patency of Indwelling Vascular CatheterIndications:Maintain Patency of Indwelling Vascular Catheter Given 04/01/2020 1:02 PM CDT 10 mL documented in this encounter Home Health Visit - Care Plan Visit Details Visit Type -SN Home Visit Discipline -[facility] Problems Problem Description Start Date Status Goals Interve ntions IV Therapy-Manag ement, Education, and Maintenance Disciplines: [facility] Teaching and learning needs for performing home IV therapy 02/18/2020 Active - 1 problem intervention scheduled/document ed in this visit Monitor patient's vital signs every home health visit Disciplines: [facility] Monitor patient's vital signs every home health visit. 02/18/2020 Active 1 goal linked to scheduled/documen mohsen intervention 1 goal intervention scheduled/document ed in this visit Collect Specimen/Lab Draw Disciplines: [facility] Management of specimen samples, including lab draws, stool, urine, & tissue. 02/18/2020 Active - 1 problem intervention scheduled/document ed in this visit Goals Goal Associated Problem Outcome Goal Met? Visit Notes Measure vital signs during every home health visit during episode of care Description: Home rail filler to measure vital signs during every home health visit during episode of care. Monitor patient's vital signs every home health visit No Interventions Intervention Associated Problem/Goal Status Variance Visit Notes Midline Description: Skilled Nurse to instruct patient/caregiver [...] PICC Problem:IV Therapy-Management, Education, and Maintenance Completed Dressing change to left performed by SN. Old dressing removed. Well tolerated by patient.. Site aseptic cleanser. Allow to air dry. Applied transparent film. Secured with tegaderm. See Wound Assessment form for measurements and status of wound. Monitor Vital Signs Description: Monitor blood pressure, pulse, oxygen saturation, respirations Problem:Monitor patient's vital signs every home health visit Goal:Measure vital signs during every home health visit during episode of care Completed All vital signs fall within acceptable parameters. Collect Specimen/Lab Draw Description: Draw labs per aseptic technique via venipuncture. May use butterfly if hard draw/PICC. WEEKLY CMV PCR, CBC WITH DIFF, BMP, [facility]-INFECTIOUS DISE[facility] Record number of attempts, delivery to lab Problem:Collect Specimen/Lab Draw Completed Labs drawn from [facility] PICC at this time. CMV PCR, CBC with diff, BMP. Goodo blood return noted in [facility] PICC. Pt tolerates well. documented in this encounter Home Health Visit - Actions and Narratives Actions Labs drawn, IV dressing delong ge performed. Pt tolerates well. Has no complaints at this time. Denies pain. Pt is resting comfortably and is able to perform all ADL's independently. documented in this encounter Care Teams Mortgage Consultant Relationship Specialty Start Date End Date Guero Colunga DO PCP - General Internal Medicine 03/22/19 04/18/23 Amber Montesinos, SHAILESH Ice Cream Shop Associate Transplant 11/17/19 Jil Duncan MD Consulting Physician Infectious Diseases 01/10/20 documented as of this encounter
--- OUTSIDE RECORDS SUMMARY | 2024-10-28 06:20 | XMS_ITS | Encounter Summary ---
Author Organization [facility] Address [address] [place] [address] Phone Care Team Providers Care Barrel Header Name Role Phone Guero Colunga DO Primary Care Provider [phone] Amber Montesinos RN Unavailable [phone] Jil Duncan MD Unavailable [phone] Encounter Details Date Type Department Care Team (Late st Contact Info) Description 03/27/2020 Telephone [facility] Infectious Diseases [address] [place] [address] Tosha Knott Social History Tobacco Use Types Packs/Day Years Used Date Smoking Tobacco: Never Smokeless Tobacco: Never Alcohol Use Standard Drinks/Week Comments Yes 0 (1 standard drink = 0.6 oz pur e alcohol) occassional Sex and Gender Information Value Date Recorded Sex Assigned at Not on file 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 She has to order the vancylovir today, if needed. Patient only has 2 doses left. documented in this encounter Plan of Treatment Scheduled Procedures Name Priority Associated Diagnoses Date/Ti me COLONOSCOPY Encounter for screening for colorectal cancer in high risk patient Family history of rectal cancer documented as of this encounter Visit Diagnoses Not on filedocumented in this encounter Care Teams Barrel Header Relationship Specialty Start Date End Date Guero Colunga DO PCP - General Internal Medicine 03/22/19 04/18/23 Amber Montesinos RN Casino Banker Transplant 11/17/19 Jil Duncan MD Consulting Physician Infectious Diseases 01/10/20 documented as of this encounter
--- OUTSIDE RECORDS SUMMARY | 2024-10-28 06:20 | XMS_ITS | Encounter Summary ---
Author Organization [facility] Address [address] [place] [address] Phone Care Team Providers Care Criminal Justice Teacher Name Role Phone Guero Colunga Primary Care Provider [phone] Amber Montesinos RN Unavailable [phone] Jil Duncan MD Unavailable [phone] Reason for Visit * Auth/Cert Specialty Diagnoses / Procedures Referred By Contac t Referred To Contact Referral ID Status Reason Start Date Expiration Date Visits Re quested Visits Authorized [id number] 1 1 Encounter Details Date Type Department Care Team (Late st Contact Info) Description 03/24/2020 Home Care Visit [facility] [address] [place] [address] Juanita Martin RN TRAVEL SCREENING CASE COMMUNICATION Social History Tobacco Use Types Packs/Day Years Used Date Smoking Tobacco: Never Smokeless Tobacco: Never Alcohol Use Standard Drinks/Week Comments Yes 0 (1 standard drink = 0.6 oz pur e alcohol) occassional Sex and Gender Information Value Date Recorded Sex Assigned at Not on file 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 Gender Identity Not on file Sexual Orientation Straight 08/22/2021 9: 23 AM CDT documented as of this encounter Plan of Treatment Scheduled Procedures Name Priority Associated Diagnoses Date/Ti me COLONOSCOPY Encounter for screening for colorectal cancer in high risk patient Family history of rectal cancer documented as of this encounter Visit Diagnoses Not on filedocumented in this encounter Care Teams Criminal Justice Teacher Relationship Specialty Start Date End Date Guero Colunga DO PCP - General Internal Medicine 03/22/19 04/18/23 Amber Montesinos, RN Sighter Transplant 11/17/19 Jil Duncan MD Consulting Physician Infectious Diseases 01/10/20 documented as of this encounter
--- OUTSIDE RECORDS SUMMARY | 2024-10-28 06:20 | XMS_ITS | Encounter Summary ---
Author Organization [facility] Healthcare Address [address] [place] [address] Care Team Providers Care Fashion Adviser Name Role Phone Guero Colunga Primary Care Provider [phone] Amber Montesinos RN Unavailable [phone] Jil Duncan MD Unavailable [phone] Encounter Details Date Type Department Care Team (Late st Contact Info) Description 04/18/2020 Telephone [facility] Transplant Liver [address] [facility] [address] [id number] [place] [address] Eli Brink Social History Tobacco Use Types Packs/Day Years Used Date Smoking Tobacco: Never Smokeless Tobacco: Never Alcohol Use Standard Drinks/Week Comments Yes 0 (1 standard drink = 0.6 oz pur e alcohol) occassional Sex and Gender Information Value Date Recorded Sex Assigned at Not on file 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 Reviewed when patient should have next set of labs done. Let herknow that order is placed for labs to get repeated the end of this month in the [facility]. Will have normal standing order complete as well since patient on monthly lab work * Telephone Encounter - Eli Brink - 04/18/2020 3:48 PM CDT Pt mother, Brooklynn left a vm at 3:39 pm returning your call. [phone] documented in this encounter Plan of Treatment Scheduled Procedures Name Priority Associated Diagnoses Date/Ti me COLONOSCOPY Encounter for screening for colorectal cancer in high risk patient Family history of rectal cancer documented as of this encounter Visit Diagnoses Not on filedocumented in this encounter Care Teams Fashion Adviser Relationship Specialty Start Date End Date Guero Colunga DO PCP - General Internal Medicine 03/22/19 04/18/23 Amber Montesinos RN Claims Adjuster Transplant 11/17/19 Jil Duncan MD Consulting Physician Infectious Diseases 01/10/20 documented as of this encounter
--- OUTSIDE RECORDS SUMMARY | 2024-10-28 06:20 | XMS_ITS | Encounter Summary ---
Author Organization [facility] Address [address] [place] [address] Phone Care Team Providers Care Electrical Research Engineer Name Role Phone Guero Colunga DO Primary Care Provider [phone] Amber Montesinos RN Unavailable [phone] iJl Duncan MD Unavailable [phone] Reason for Visit * Reason Onset Date Comments OPAT 04/04/2020 Encounter Details Date Type Department Care Team (Late st Contact Info) Description 04/04/2020 Telephone [facility] Infectious Diseases [address] [place] [phone] Ny Griffin OPAT Social History Tobacco Use Types Packs/Day Years Used Date Smoking Tobacco: Never Smokeless Tobacco: Never Alcohol Use Standard Drinks/Week Comments Yes 0 (1 standard drink = 0.6 oz pur e alcohol) occassional Sex and Gender Information Value Date Recorded Sex Assigned at Not on file 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 Duncan did speak with them and we are stopping and line can be pulled. Thank you, Ny ----- Message ----- From: Leida Vela RPh [...] 9:09 AM CDT To: Leida Vela RPh, Jil Duncan MD, # Subject: RE: Lab Results Not sure whats going on with him. I think he has an appointment with us in the next couple weeks solets continue as long as he is tolerating well. Jil, anything else you need me to do? Lisandra ----- Message ----- From: Leida Vela RPh Sent: 04/03/2020 8:59 AM CDT To: Lisandra Auguste NP, Im [...] 10:22 AM CDT To: Leida Vela RPh, Im Id Nurse Pool Subject: RE: Lab Results Yes, lets continue for another week and keep a close eye on his CBC. Thanks Kina! 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 Would you like to continue IV ganciclovir for anotherweek? WBC=10.0 ANC=4.3 Thanks! Kina ----- Message ----- From: Lisandra Auguste NP Sent: 03/19/2020 12:18 PM CDT To: Leida Vela RPh, Im Id Nurse Pool Subject: RE: Lab Results Yes, continue ganciclovir another week. If CMV level suppressed we will consider switch to PO ----- Message ----- From: Leida Vela RPh Sent: 03/19/2020 12:15 PM CDT To: Lisandra Auguste NP, Im Id [...] Kina! ----- Message ----- From: Leida Vela RP Sent: 03/19/2020 11:38 AM CDT To: Lisandra [...] PM CDT To: Leida Vela RPh, [facility], # Subject: RE: Lab Results Sent [...] Lisandra Auguste NP, Gage Noel, [facility], # Subject: RE: Lab Results Labs from today have resulted. WBC=6.4 ANC=0.6 I will be out of the office after 4 today so I have added Gage to this message. He will be workingthis weekend as well. Thanks! Kina ----- Message ----- From: Lisandra Auguste NP Sent: 03/13/2020 5:11 PM CDT To: Leida Vela RPh, Im Id Nurse Pool Subject: RE: Lab [...] 3:20 PM CDT To: Lisandra Auguste NP, Ikng Im Id Nurse Pool Subject: Lab Results Beka's labs from 03/12/20 are significant for decreased ANC. WBC=6.3 ANC=1.4 Sou=760 CMV pending It looks like he had [...] filedocumented in this encounter Care Teams Electrical Research Engineer Relationship Specialty Start Date End Date Guero Colunga DO PCP - General Internal Medicine 03/22/19 04/18/23 Amber Montesinos, SHAILESH Protective Services Social Worker Transplant 11/17/19 Jil Duncan MD Consulting Physician Infectious Diseases 01/10/20 documented as of this encounter
--- OUTSIDE RECORDS SUMMARY | 2024-10-28 06:20 | XMS_ITS | Encounter Summary ---
Author Organization [facility] Home Care Servic es Address [address] [place] [address] Phone Care Team Providers Care Sausage Cutter Name Role Phone Guero Colunga Primary Care Provider [phone] Amber Montesinos RN Unavailable [phone] Jil Duncan MD Unavailable [phone] Reason for Visit * Auth/Cert Specialty Diagnoses / Procedures Referred By Contyadira t Referred To Contact Referral ID Status Reason Start Date Expiration Date Visits Re quested Visits Authorized [id number] 1 1 Encounter Details Date Type Department Care Team (Late st Contact Info) Description 03/22/2020 Home Care Visit [facility] [address] [place] [address] Bria Briggs RN TRAVEL SCREENING CASE COMMUNICATION Social History Tobacco Use Types Packs/Day Years Used Date Smoking Tobacco: Never Smokeless Tobacco: Never Alcohol Use Standard Drinks/Week Comments Yes 0 (1 standard drink = 0.6 oz pur e alcohol) occassional Sex and Gender Information Value Date Recorded Sex Assigned at Not on file 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 Gender Identity Not on file Sexual Orientation Straight 08/22/2021 9: 23 AM CDT documented as of this encounter Plan of Treatment Scheduled Procedures Name Priority Associated Diagnoses Date/Ti me COLONOSCOPY Encounter for screening for colorectal cancer in high risk patient Family history of rectal cancer documented as of this encounter Visit Diagnoses Not on filedocumented in this encounter Care Teams Sausage Cutter Relationship Specialty Start Date End Date CristineGuero galiciaDO PCP - General Internal Medicine 03/22/19 04/18/23 Amber Montesinos, SHAILESH Financial Aid Officer Transplant 11/17/19 Jil Duncan MD Consulting Physician Infectious Diseases 01/10/20 documented as of this encounter
--- OUTSIDE RECORDS SUMMARY | 2024-10-28 06:20 | XMS_ITS | Encounter Summary ---
Author Organization [facility] Healthcare Address [address] [place] [address] Care Team Providers Care Manufacturer Agent Name Role Phone Guero Colunga DO Primary Care Provider [phone] Amber Montesinos RN Unavailable [phone] Jil Duncan MD Unavailable [phone] Encounter Details Date Type Department Care Team (Late st Contact Info) Description 04/18/2020 Telephone [facility] Transplant Liver [address] [facility] [address] [phone] [place], [place] [id number] Amber Montesinos RN Social History Tobacco Use Types Packs/Day Years Used Date Smoking Tobacco: Never Smokeless Tobacco: Never Alcohol Use Standard Drinks/Week Comments Yes 0 (1 standard drink = 0.6 oz pur e alcohol) occassional Sex and Gender Information Value Date Recorded Sex Assigned at Not on file 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 documented in this encounter Plan of Treatment Scheduled Procedures Name Priority Associated Diagnoses Date/Ti me COLONOSCOPY Encounter for screening for colorectal cancer in high risk patient Family history of rectal cancer documented as of this encounter Visit Diagnoses Not on filedocumented in this encounter Care Teams Manufacturer Agent Relationship Specialty Start Date End Date Guero Colunga DO PCP - General Internal Medicine 03/22/19 04/18/23 Amber Montesinos, SHAILESH Universal Grinder Tool Transplant 11/17/19 Jil Duncan MD Consulting Physician Infectious Diseases 01/10/20 documented as of this encounter
--- OUTSIDE RECORDS SUMMARY | 2024-10-28 06:20 | XMS_ITS | Encounter Summary ---
Author Organization [facility] Healthcare Address [address] [place] [address] Care Team Providers Care Oyster Floater Name Role Phone Guero Colunga DO Primary Care Provider [phone] Amber Montesinos RN Unavailable [phone] Jil Duncan MD Unavailable [phone] Encounter Details Date Type Department Care Team (Late st Contact Info) Description 03/21/2020 Telephone [facility] Transplant Liver [address] [place] [facility] [address] [phone] [place], [place] [phone] Amber Montesinos RN Social History Tobacco Use [...] Telephone Encounter - Amber Vargas RN - 03/21/2020 11:45 AM CDT Reviewed patient's most recent labs with Dr. Gresham. Patient with elevated LFT's, trough level on 03/13 therapeutic. Patient should continue to get weekly CMP levels with CMV PCR. Discussed possibility of moving CT scan sooner- ok for patient per MD to keep on 04/05. documented in this encounter Plan of Treatment Scheduled Procedures Name Priority Associated Diagnoses Date/Ti me COLONOSCOPY Encounter for screening for colorectal cancer in high risk patient Family history of rectal cancer documented as of this encounter Visit Diagnoses Not on filedocumented in this encounter Care Teams Oyster Floater Relationship Specialty Start Date End Date Guero Colunga DO PCP - General Internal Medicine 03/22/19 04/18/23 Amber Montesinos, SHAILESH Auto Top Mechanic Transplant 11/17/19 Jil Duncan MD Consulting Physician Infectious Diseases 01/10/20 documented as of this encounter
--- OUTSIDE RECORDS SUMMARY | 2024-10-28 06:20 | XMS_ITS | Encounter Summary ---
Author Organization [facility] Address [address] [place] [address] Phone Care Team Providers Care Operations Business Partner Name Role Phone Guero Colunga DO Primary Care Provider [phone] Amber Montesinos RN Unavailable [phone] Jil Duncan MD Unavailable [phone] Reason for Visit * Reason Onset Date Comments Appointment 04/04/2020 Encounter Details Date Type Department Care Team (Late st Contact Info) Description 04/04/2020 Telephone [facility] Infectious Diseases [address] [place] [phone] Ny Griffin Appointment Social History Tobacco Use Types Packs/Day Years Used Date Smoking Tobacco: Never Smokeless Tobacco: Never Alcohol Use Standard Drinks/Week Comments Yes 0 (1 standard drink = 0.6 oz pur e alcohol) occassional Sex and Gender Information Value Date Recorded Sex Assigned at Not on file 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 documented in this encounter Plan of Treatment Scheduled Procedures Name Priority Associated Diagnoses Date/Ti me COLONOSCOPY Encounter for screening for colorectal cancer in high risk patient Family history of rectal cancer documented as of this encounter Visit Diagnoses Not on filedocumented in this encounter Care Teams Operations Business Partner Relationship Specialty Start Date End Date Guero Colunga DO PCP - General Internal Medicine 03/22/19 04/18/23 Amber Montesinos, SHAILESH Corking Machine Operator Transplant 11/17/19 Jil Duncan MD Consulting Physician Infectious Diseases 01/10/20 documented as of this encounter
--- OUTSIDE RECORDS SUMMARY | 2024-10-28 06:20 | XMS_ITS | Encounter Summary ---
Author Organization [facility] Healthcare Address [address] [place] [address] Care Team Providers Care Coin Dealer Name Role Phone Guero Colunga Primary Care Provider [phone] Amber Montesinos RN Unavailable [phone] Jil Duncan MD Unavailable [phone] Encounter Details Date Type Department Care Team (Late st Contact Info) Description 03/20/2020 Orders Only [facility] Transplant Liver [address] [facility] [address] [phone] [place] [address] Amber Montesinos, SHAILESH Social History Tobacco Use Types Packs/Day Years Used Date Smoking Tobacco: Never Smokeless Tobacco: Never Alcohol Use Standard Drinks/Week Comments Yes 0 (1 standard drink = 0.6 oz pur e alcohol) occassional Sex and Gender Information Value Date Recorded Sex Assigned at Not on file 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 Gender Identity Not on file Sexual [...] End Da te tacrolimus (PROGRAF) 0.5 mg capsuleIndications:Histo ry of liver transplant ([facility]/HCC) (HCC) Take 1 capsule (0.5 mg total) by mouth 2 (two) times a day Duplicate order 02/13/2019 03/20/2020 tacrolimus (PROGRAF) 0.5 mg capsule Duplicate order 10/13/2019 03/20/2020 documented as of this encounter Care Teams Coin Dealer Relationship Specialty Start Date End Date Guero Colunga DO PCP - General Internal Medicine 03/22/19 04/18/23 Amber Montesinos, RN Basketball Referee Transplant 11/17/19 Jil Duncan MD Consulting Physician Infectious Diseases 01/10/20 documented as of this encounter
--- OUTSIDE RECORDS SUMMARY | 2024-10-28 06:20 | XMS_ITS | Encounter Summary ---
Author Organization [facility] Address [address] [place] [address] Phone Care Team Providers Care Manager Analytical Name Role Phone Guero Colunga DO Primary Care Provider [phone] Amber Montesinos RN Unavailable [phone] Jil Duncan MD Unavailable [phone] Reason for Visit * Reason Onset Date Comments OPAT 04/03/2020 Encounter Details Date Type Department Care Team (Late st Contact Info) Description 04/03/2020 Telephone [facility] Infectious Diseases [address] [place] [phone] Ny Griffin OPAT Social History Tobacco Use Types Packs/Day Years Used Date Smoking Tobacco: Never Smokeless Tobacco: Never Alcohol Use Standard Drinks/Week Comments Yes 0 (1 standard drink = 0.6 oz pur e alcohol) occassional Sex and Gender Information Value Date Recorded Sex Assigned at Not on file Legal 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 I think he has an appointment with us in the next couple weeks solets continue as long as he is tolerating well. Ige, anything else you need me to do? Lisandra ----- Message ----- From: eLida Vela RPh Sent: 04/03/2020 8:59 AM CDT [...] Id Nurse Pool Subject: RE: Lab Results oBom CMV came back positive from 03/25/20. Would [...] PM CDT To: Leida Vela RPh, [facility], # Subject: RE: Lab Results Sent an email also but I spoke with Dr. Duncan who wants to continue ganciclovir and start [id number] injection 300 mcg daily until Wednesday and recheck. Is this something you can provide and deliver to him over the weekend? ----- Message ----- From: Leida Vela RPh Sent: 03/15/2020 3:36 PM CDT To: Lisandra Auguste NP, Gage Noel [facility], # Subject: RE: Lab Results Labs from today have resulted. WBC=6.4 ANC=0.6 I will be out of the office after 4 today so I have added Gage to this message. He will be workingthis weekend as well. Thanks! Kina ----- Message ----- From: Lisandra Auguste NP Sent: 03/13/2020 5:11 PM CDT To: Leida Vela RP, [place] Im Id Nurse Pool Subject: RE: [...] are significant for decreased ANC. WBC=6.3 ANC=1.4 Qep=153 CMV pending It looks like he had [...] filedocumented in this encounter Care Teams Manager Analytical Relationship Specialty Start Date End Date Guero Colunga DO PCP - General Internal Medicine 03/22/19 04/18/23 Amber Montesinos RN Neck Band Setter Transplant 11/17/19 Jil Duncan MD Consulting Physician Infectious Diseases 01/10/20 documented as of this encounter
--- OUTSIDE RECORDS SUMMARY | 2024-10-28 06:20 | XMS_ITS | Encounter Summary ---
Author Organization [facility] Healthcare Address [address] [place] [address] Care Team Providers Care Business Continuity Planner Name Role Phone Guero Colunga Primary Care Provider [phone] Amber Montesinos RN Unavailable [phone] Jil Duncan MD Unavailable [phone] Encounter Details Date Type Department Care Team (Late st Contact Info) Description 04/15/2020 Orders Only [facility] Transplant Liver [address] [facility] [phone] [place] [address] Amber Montesinos, SHAILESH History of liver transplant (CMS/HCC) (Primary Dx) Social History Tobacco Use Types Packs/Day Years Used Date Smoking Tobacco: Never Smokeless Tobacco: Never Alcohol Use Standard Drinks/Week Comments Yes 0 (1 standard drink = 0.6 oz pur e alcohol) occassional Sex and Gender Information Value Date Recorded Sex Assigned at Not on file Legal 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 Testing was performed by the [employer] AmpliPrep/NIA TaqMan CMV Test ([employer] Testing performed at [facility] Current interpretive data was last revised on 17. CMV DNA IU/mL 1,364 IUnits/mL [facility] CMV DNA log IU/mL 3.13 log IUnits/mL [facility] Blood specimen (specimen) 04/27/2020 8:32 AM CDT 04/27/2020 9:25 PM CDT Narrative [facility] - 04/28/2020 4:41 AM CDT . us Theodore Gresham MD LAB MICROBIOLOGY - GENERAL ORDERABLES Final Result [facility] Department [place] [address] * Tacrolimus level trough (04/27/2020 8:31 AM CDT) Pathologist [facility] Tacrolimus trough 4.9 ng/mL [facility] Comment: Interpretive Data Testing performed by liquid chromatography-tandem mass spectrometry. ??Therapeutic concentrations vary depending on type of transplanted organ and time elapsed since transplant. ??Typical trough concentrations range from 5-15 ng/mL. ??This test was developed and its performance characteristics determined by the [facility] consistent with CLIA requirements. ??This test has not been cleared or approved by the [place] Food and Drug administration. ??Current interpretive data last reviewed 2020. Blood specimen (specimen) 04/27/2020 8:31 AM CDT 04/27/2020 8:48 AM CDT Narrative [facility] - 04/27/2020 11:27 AM CDT . us Theodore Gresham MD LAB BLOOD ORDERABLES Final Result Performing Organization Address [facility] Co de Phone Number [facility] Department [place] [address] * (ABNORMAL) Gamma GT (04/27/2020 8:31 AM CDT) Pathologist [facility] GGT 311(H) 10 - 50 Units/L [facility] Blood specimen (specimen) 04/27/2020 8:31 AM CDT 04/27/2020 8:48 AM CDT Narrative [facility] - 04/27/2020 9:38 AM CDT . us Theodore Gresham MD LAB BLOOD ORDERABLES Final Result Performing Organization Address [facility] de Phone Number [facility] [place] [address] * (ABNORMAL) Comprehensive metabolic panel (04/27/2020 8:31 AM CDT) [facility] Sodium 142 135 - 145 mmol/L [facility] Potassium, pl 4.4 3.3 - 4.9 mmol/L [facility] Chloride 105 97 - 110 mmol/L [facility] CO2 30 22 - 32 mmol/L [facility] Anion gap 7 2 - 15 mmol/L [facility] BUN 14 8 - 25 mg/dL [facility] Creatinine 0.93 0.80 - 1.30 mg/dL [facility] Glucose 106 70 - 199 mg/dL [facility] Comment: Interpretive Data Fasting glucose >/= [...] 2017. Calcium 9.3 8.5 - 10.3 mg/dL [facility] Bilirubin, total 0.4 0.1 - 1.2 mg/dL [facility] Protein, pl 5.9(L) 6.5 - 8.5 g/dL [facility] Albumin 4.2 3.5 - 5.0 g/dL [facility] Alk phos 418(H) 40 - 130 Units/L [facility] ALT 59(H) 7 - 55 Units/L [facility] AST 47 10 - 50 Units/L [facility] Blood specimen (specimen) 04/27/2020 8:31 AM CDT 04/27/2020 8:48 AM CDT Narrative [facility] - 04/27/2020 10:08 AM CDT . Theodore Gresham MD LAB BLOOD ORDERABLES Final Result [facility] Department [place] [address] * (ABNORMAL) CBC with auto differential (04/27/2020 8:31 AM CDT) WBC 14.6(H) 3.8 - 9.9 K/cumm [facility] Hgb 15.1 13.0 - 17.5 g/dL [facility] Hct 42.6 38.9 - 50.3 % [facility] Plt 275 150 - 400 K/cumm [facility] MPV 10.2 9.1 - 12.3 fL [facility] RBC 4.42 4.30 - 5.80 M/cumm [facility] MCV 96.4 81.3 - 96.4 fL [facility] MCH 34.2(H) 27.1 - 33.3 pg [facility] MCHC 35.4 32.3 - 35.7 g/dL [facility] RDW CV 15.1(H) 11.1 - 14.9 % [facility] RDW SD 54.4(H) 35.7 - 48.1 fL [facility] NRBC abs 0.00 0.00 - 0.01 K/cumm [facility] Blood specimen (specimen) 04/27/2020 8:31 AM CDT 04/27/2020 8:48 AM CDT Narrative [facility] - 04/27/2020 9:42 AM CDT . Theodore Gresham MD LAB BLOOD ORDERABLES Final Result [facility] Department [place] [address] documented in this encounter Visit Diagnoses Diagnosis History of liver transplant (CMS/HCC) (HCC)- Primary Liver replaced by transplant History of liver transplant (CMS/HCC) (HCC) Liver replaced by transplant documented in this encounter Care Teams Business Continuity Planner Relationship Specialty Start Date End Date Guero Colunga DO PCP - General Internal Medicine 03/22/19 04/18/23 Amber Montesinos, SHAILESH Die Assembler Transplant 11/17/19 Jil Duncan MD Consulting Physician Infectious Diseases 01/10/20 documented as of this encounter
--- OUTSIDE RECORDS SUMMARY | 2024-10-28 06:20 | XMS_ITS | Encounter Summary ---
Author Organization [facility] Healthcare Address [address] [place] [address] Care Team Providers Care Redipper Name Role Phone Guero Colunga Primary Care Provider [phone] Amber Montesinos RN Unavailable [phone] Jil Duncan MD Unavailable [phone] Encounter Details Date Type Department Care Team (Late st Contact Info) Description 04/02/2020 Telephone [facility] Transplant Liver [address] 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 Per lab, they are unable to add on because specimen was too clotted. Called to speak with [facility] infusion regarding orders. Spoke with Trudy, pharmacist with [facility] infusion. She states that orders to include weekly CMP. She is unsure why just BMP was drawn but she will follow up. Patient supposed to have CT on Wednesday of abdomen. documented in this encounter Plan of Treatment Scheduled Procedures Name Priority Associated Diagnoses Date/Ti me COLONOSCOPY Encounter for screening for colorectal cancer in high risk patient Family history of rectal cancer documented as of this encounter Visit Diagnoses Not on filedocumented in this encounter Care Teams Redipper Relationship Specialty Start Date End Date Guero Colunga DO PCP - General Internal Medicine 03/22/19 04/18/23 Amber Montesinos, RN Industrial Education Teacher Transplant 11/17/19 Jil Duncan MD Consulting Physician Infectious Diseases 01/10/20 documented as of this encounter
--- OUTSIDE RECORDS SUMMARY | 2024-10-28 06:20 | XMS_ITS | Encounter Summary ---
Author Organization [facility] Address [address] [place] [address] Phone Care Team Providers Care Duralumin Metalworker Name Role Phone Guero Colunga DO Primary Care Provider [phone] Amber Montesinos RN Unavailable [phone] Jil Duncan MD Unavailable [phone] Reason for Visit * Reason Onset Date Comments OPAT 03/27/2020 Encounter Details Date Type Department Care Team (Late st Contact Info) Description 03/27/2020 Telephone [facility] Infectious Diseases [facility] Medicine [address] [place] [address] [place] [address] Ny Griffin OPAT Social History Tobacco Use Types Packs/Day Years Used Date Smoking Tobacco: Never Smokeless Tobacco: Never Alcohol Use Standard Drinks/Week Comments Yes 0 (1 standard drink = 0.6 oz pur e alcohol) occassional Sex and Gender Information Value Date Recorded Sex Assigned at Not on file 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 Duncan who wants to continue ganciclovir and start [id number]-[id number] injection 300 mcg daily until Wednesday and recheck. Is this something you can provide and deliver to him over the weekend? ----- Message ----- From: Leida Vela RPh Sent: 03/15/2020 3:36 PM CDT To: Lisandra Auguste NP, Gage Noel, [facility], # Subject: RE: Lab Results Labs [...] are significant for decreased ANC. WBC=6.3 ANC=1.4 Npn=075 CMV pending It looks like he had [...] on filedocumented in this encounter Care Teams Duralumin Metalworker Relationship Specialty Start Date End Date Guero Colunga DO PCP - General Internal Medicine 03/22/19 04/18/23 Amber Montesinos, SHAILESH Bill Collector Transplant 11/17/19 Jil Duncan MD Consulting Physician Infectious Diseases 01/10/20 documented as of this encounter
--- OUTSIDE RECORDS SUMMARY | 2024-10-28 06:20 | XMS_ITS | Encounter Summary ---
Author Organization [facility] Healthcare Address [address] [place] [address] Care Team Providers Care Medical Records Receptionist Name Role Phone Gureo Colunga DO Primary Care Provider [phone] Amber Montesinos RN Unavailable [phone] Jil Duncan MD Unavailable [phone] Encounter Details Date Type Department Care Team (Late st Contact Info) Description 04/11/2020 Telephone [facility] Transplant Liver [address] [facility] [address] [phone] [place], [place] [id number] Amber Montesinos RN Social History Tobacco Use Types Packs/Day Years Used Date Smoking Tobacco: Never Smokeless Tobacco: Never Alcohol Use Standard Drinks/Week Comments Yes 0 (1 standard drink = 0.6 oz pur e alcohol) occassional Sex and Gender Information Value Date Recorded Sex Assigned at Not on file 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 Gresham. Patient will have a CMV PCR done this Wednesday per ID. After that, patient can resume monthly lab schedule. Called mom to discuss schedule for labs and results of recent CT scan. Let mother know that next CT will coincide with patient's follow up appointment in October per Dr. Gresham. Mother stating that patient is coming to [facility] on Wednesday to get his next CMV PCR done. New orders placed through [facility] to reflect standing order with CMV level. documented in this encounter Plan of Treatment Scheduled Orders Name Type Priority Associated Diagnoses Orde r Schedule CBC with auto differential Lab Routine History of liver transplant (CMS/HCC) monthly for 20 Occurrences starting 04/11/2020 until 04/11/2021 Comprehensive metabolic panel Lab Routine History of liver transplant (CMS/HCC) monthly for 20 Occurrences starting 04/11/2020 until 04/11/2021 Gamma GT Lab Routine History of liver transplant (CMS/HCC) monthly for 20 Occurrences starting 04/11/2020 until 04/11/2021 Tacrolimus level trough Lab Routine History of liver transplant (CMS/HCC) monthly for 20 Occurrences starting 04/11/2020 until 04/11/2021 CMV DNA QN, PCR Blood Microbiology Routine History of liver transplant (CMS/HCC) monthly for 20 Occurrences starting 04/11/2020 until 04/11/2021 Scheduled Procedures Name Priority Associated Diagnoses Date/Ti me COLONOSCOPY Encounter for screening for colorectal cancer in high risk patient Family history of rectal cancer documented as of this encounter Visit Diagnoses Diagnosis History of liver transplant (CMS/HCC) (HCC)- Primary Liver replaced by transplant documented in this encounter Care Teams Medical Records Receptionist Relationship Specialty Start Date End Date Guero Colunga DO PCP - General Internal Medicine 03/22/19 04/18/23 Amber Montesinos RN Special Delivery Mail Carrier Transplant 11/17/19 Jil Duncan MD Consulting Physician Infectious Diseases 01/10/20 documented as of this encounter
--- OUTSIDE RECORDS SUMMARY | 2024-10-28 06:20 | XMS_ITS | Encounter Summary ---
Author Organization [facility] Healthcare Address [address] [place] [address] Care Team Providers Care Clinical Provider Trainer Name Role Phone Guero Colunga DO Primary Care Provider [phone] Amber Montesinos RN Unavailable [phone] Jil Duncan MD Unavailable [phone] Reason for Referral * Diagnostic Imaging (Routine) - Closed Specialty Diagnoses / Procedures Referred By Contac t Referred To Contact Radiology Diagnoses History of liver transplant (CMS/HCC) (HCC) Liver abscess LFT elevation Procedures CT Abdomen 3 Phase Theodore Gresham MD Phone: tel: fax: [address] [address] Referral ID Status Reason Start Date Expiration Date Visits Re quested Visits Authorized [id number] Closed 04/09/2020 10/19/2021 1 1 Encounter Details Date Type Department Care Team (Late st Contact Info) Description 04/09/2020 Telephone [facility] Transplant Liver [id number] [phone] [place] [address] Amber Montesinos RN Social History Tobacco Use Types Packs/Day Years Used Date Smoking Tobacco: Never Smokeless Tobacco: Never Alcohol Use Standard Drinks/Week Comments Yes 0 (1 standard drink = 0.6 oz pur e alcohol) occassional Sex and Gender Information Value Date Recorded Sex Assigned at Not on file Legal Sex Male 6:28 AM PATHOLOGY TECH Gender Identity Not on file Sexual Orientation Straight 08/22/2021 9: 23 AM CDT documented as of this encounter Miscellaneous Notes * Telephone Encounter - Amber Vargas RN - 04/09/2020 9:30 AM CDT Will ask Victorina to please call radiology to schedule and send info to pre cert Are there any changes to insurance? If there is a change, please indicate the new insurance details below. If it is unchanged to what is already in Epic, simply warren each with N/A Primary Insurance: Patient ID#: Group#: Insurance Phone#: Radiology Test Request Details Need pre-cert for: CT Abdomen 3 Phase Ordering physician: Theodore Gresham CPT Code: 62539 CPT Code description: CT Abdomen 3 Phase ICD-10 Code: Z94.4; K75.0; R79.89 ICD-10 Code description: history of liver transplant; liver abscess; elevated liver enzymes Patient is having test due to: s.p [...] previous lesion Facility/Location test will be done: [facility] Date test will be done: to coincide with ROV 10/02/2020 documented in this encounter Plan of Treatment Scheduled Procedures Name Priority Associated Diagnoses Date/Ti va COLONOSCOPY Encounter for screening for colorectal cancer in high risk patient Family history of rectal cancer documented as of this encounter Results * CT Abdomen 3 Phase (10/02/2020 10:29 AM PATHOLOGY TECH) Anatomical Region Laterality Modality Abdomen N/A Computed Tomogra phy 10/02/2020 11:4 5 AM PATHOLOGY TECH Impressions 10/02/2020 11:45 AM PATHOLOGY TECH 1. Continued decrease in size of a [...] Swapna Godoy M.D. Narrative 10/02/2020 11:45 AM PATHOLOGY TECH EXAMINATION: CT of the abdomen with intravenous [...] (CMS/HCC) (HCC)- Primary Liver replaced by transplant Liver abscess Abscess of liver LFT elevation History of liver transplant (CMS/HCC) (HCC) Liver replaced by transplant Liver abscess Abscess of liver LFT elevation documented in this encounter Care Teams Clinical Provider Trainer Relationship Specialty Start Date End Date Guero Colunga DO PCP - General Internal Medicine 03/22/19 04/18/23 Amber Montesinos, RN Chief Operating Engineer Transplant 11/17/19 Jil Duncan MD Consulting Physician Infectious Diseases 01/10/20 documented as of this encounter
--- OUTSIDE RECORDS SUMMARY | 2024-10-28 06:20 | XMS_ITS | Encounter Summary ---
Author Organization [facility] Healthcare Address [address] [place] [address] Care Team Providers Care Endoscopy Nurse Name Role Phone Guero Colunga Primary Care Provider [phone] Amber Montesinos RN Unavailable [phone] Jil Duncan MD Unavailable [phone] Reason for Referral * Diagnostic Imaging (Routine) - Closed Specialty Diagnoses / Procedures Referred By Sascha rey Referred To Contact Radiology Diagnoses History of liver transplant (CMS/HCC) (HCC) Elevated liver enzymes Procedures CT Abdomen [address] Abdomen 3 Phase Theodore Gresham MD Phone: tel: fax: [address] [address] Referral ID Status Reason Start Date Expiration Date Visits Re quested Visits Authorized [id number] Closed 03/19/2020 05/03/2020 1 1 Reason for Visit * Diagnostic Imaging (Routine) - Closed Specialty Diagnoses / Procedures Referred By Sascha rey Referred To Contact Radiology Diagnoses History of liver transplant (CMS/HCC) (HCC) Elevated liver enzymes Procedures CT Abdomen [address] Abdomen 3 Phase Theodore Gresham MD Phone: tel: fax: [facility] [address] [facility] [address] Referral ID Status Reason Start Date Expiration Date Visits Re quested Visits Authorized [id number] Closed 03/19/2020 05/03/2020 1 1 Encounter Details Date Type Department Care Team (Latest Contact Info) Description 04/05/2020 6:24 AM CDT - 04/05/2020 11:59 PM CDT Hospital Encounter [facility] [address] [place] [address] Theodore Gresham MD [address] [facility] [address] [place] [address] History of liver transplant (CMS/HCC); Elevated liver enzymes Discharge Disposition: Discharge to home or self care Social History Tobacco Use Types Packs/Day Years Used Date Smoking Tobacco: Never Smokeless Tobacco: Never Alcohol Use Standard Drinks/Week Comments Yes 0 (1 standard drink = 0.6 oz pur e alcohol) occassional Sex and Gender Information Value Date Recorded Sex Assigned at Not on file 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 After that, please include it in your monthly labs. I'll update you with his CMV levels and any changes to the plan. Thanks! * Result Encounter Note - Theodore Gresham MD - 04/05/2020 10:58 AM CDT - CT reviewed (04-05-20) and continued resolution of focal area of necrosis - recommend repeat CT to correspond to ROV on 10-02-20 documented in this encounter Plan of Treatment Scheduled Procedures Name Priority Associated Diagnoses Date/Ti me COLONOSCOPY Encounter for screening for colorectal cancer in high risk patient Family history of rectal cancer documented as of this encounter Procedures Procedure Name Priority Date/Time Associated Diagnosis Comments CT ABDOMEN 3 PHASE Schedule Routine, Read Routine (OP Routine) 04/05/2020 6:54 AM CDT History of liver transplant (CMS/HCC) Elevated liver enzymes documented in this encounter Results * CT Abdomen 3 Phase (04/05/2020 6:54 AM CDT) Anatomical Region Laterality Modality Abdomen N/A Computed Tomogra phy 04/05/2020 7:40 AM CDT Impressions 04/05/2020 7:40 AM CDT 1. ??Continued interval decrease in size of a segment 4B lesion, which likely represents a resolving infectious process/abscess. ??Continued attention on follow-up examination is recommended to ensure complete resolution. ??No new focal hepatic lesions. Electronically signed by: Swapna Godoy M.D. Narrative 04/05/2020 7:40 AM CDT EXAMINATION: CT of the abdomen with intravenous contrast. TECHNIQUE: Computed axial tomographic images of the abdomen were obtained with intravenous contrast according to multiphasic liver protocol. ??There were no immediate complications after the intravenous administration of 100 cc optiray 350. 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 ??Follow-up segment 4B lesion, which was biopsied on 02/02/2020, pathology demonstrating necrosis, chronic inflammation, and no lymphoid proliferation or other evidence of malignancy. FINDINGS: Postsurgical changes of prior orthotopic liver transplant are again noted. ??When compared to 02/17/2020, there has been interval decrease in size of a segment IVb hypoattenuating lesion, best visualized on the portal venous phase, measuring approximately 1.1 x 0.8 cm (series 5, image 53). ??This previously measured approximately 2.3 cm. ??There are areas of arterial phase hyperenhancement surrounding this hypoattenuating focus, likely representing transient hepatic attenuation differences. No new lesions are identified. Left portal and hepatic veins are patent. ??Main portal vein is patent. ??Visualized portions of the superior mesenteric vein as well as splenic vein are patent. ??Hepatic arteries patent. Visualized lung bases demonstrate multiple bilateral pulmonary nodules, which were partially seen on prior PET/CT from 10/12/2019. For reference, right lower lobe 4 mm nodule (series 6, image 20). Lower paraesophageal/posterior mediastinal lymphadenopathy is partially visualized but appears unchanged when compared to prior MR. No pericardial effusion. Spleen surgically absent. ??Gallbladder surgically absent. ??Kidneys appear unremarkable without hydronephrosis. ??Adrenal glands unremarkable. ??Pancreas appears unremarkable. ??No upper abdominal ascites or free air. ??Abdominal aorta is normal in caliber. Retroperitoneal, gastrohepatic, and mesenteric lymphadenopathy is again noted, overall not significantly changed. ??Visualized portions of the bowel are unremarkable. No suspicious osseous lesion. Procedure Note Swapna Godoy MD - 04/05/2020 EXAMINATION: CT of the abdomen with intravenous contrast. TECHNIQUE: Computed axial tomographic images of the abdomen were obtained with intravenous contrast according to multiphasic liver protocol. There were no immediate complications after the intravenous administration of 100 cc optiray 350. 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 Follow-up segment 4B lesion, which was biopsied on 02/02/2020, pathology demonstrating necrosis, chronic inflammation, and no lymphoid proliferation or other evidence of malignancy. FINDINGS: Postsurgical changes of prior orthotopic liver transplant are again noted. When compared to 02/17/2020, there has been interval decrease in size of a segment IVb hypoattenuating lesion, best visualized on the portal venous phase, measuring approximately 1.1 x 0.8 cm (series 5, image 53). This previously measured approximately 2.3 cm. There are areas of arterial phase hyperenhancement surrounding this hypoattenuating focus, likely representing transient hepatic attenuation differences. No new lesions are identified. Left portal and hepatic veins are patent. Main portal vein is patent. Visualized portions of the superior mesenteric vein as well as splenic vein are patent. Hepatic arteries patent. Visualized lung bases demonstrate multiple bilateral pulmonary nodules, which were partially seen on prior PET/CT from 10/12/2019. For reference, right lower lobe 4 mm nodule (series 6, image 20). Lower paraesophageal/posterior mediastinal lymphadenopathy is partially visualized but appears unchanged when compared to prior MR. No pericardial effusion. Spleen surgically absent. Gallbladder surgically absent. Kidneys appear unremarkable without hydronephrosis. Adrenal glands unremarkable. Pancreas appears unremarkable. No upper abdominal ascites or free air. Abdominal aorta is normal in caliber. Retroperitoneal, gastrohepatic, and mesenteric lymphadenopathy is again noted, overall not significantly changed. Visualized portions of the bowel are unremarkable. No suspicious osseous lesion. IMPRESSION: 1. Continued interval decrease in size of a segment 4B lesion, which likely represents a resolving infectious process/abscess. Continued attention on follow-up examination is recommended to ensure complete resolution. No new focal hepatic lesions. Electronically signed by: Swapna Godoy M.D. Theodore Gresham MD IMG CT PROCEDURES Final Re sult documented in this encounter Visit Diagnoses Diagnosis History of liver transplant (CMS/HCC) (HCC) Liver replaced by transplant Elevated liver enzymes Other nonspecific abnormal serum enzyme levels documented in this encounter Administered Medications Inactive Administered Medications - up to 3 most recent administrations Medication Order MAR Action Action Date Dose Rate Site ioversoL (OPTIRAY 350) syringe syringe 125 mL 125 mL, intravenous, Once in imaging, contrast, Starting on Wed04/05/20 at 0655, For 1 dose Given 04/05/2020 6:56 AM CDT 125 mL documented in this encounter Care Teams Endoscopy Nurse Relationship Specialty Start Date End Date Guero Colunga DO PCP - General Internal Medicine 03/22/19 04/18/23 Amber Montesinos, SHAILESH Farm Marketer Transplant 11/17/19 Jil Duncan MD Consulting Physician Infectious Diseases 01/10/20 documented as of this encounter
--- OUTSIDE RECORDS SUMMARY | 2024-10-28 06:20 | XMS_ITS | Encounter Summary ---
Author Organization [facility] Address [address] [place] [address] Phone Care Team Providers Care Box Toe Stitcher Name Role Phone Guero Colunga DO Primary Care Provider [phone] Amber Montesinos RN Unavailable [phone] Jil Duncan MD Unavailable [phone] Encounter Details Date Type Department Care Team (Late st Contact Info) Description 04/04/2020 Orders Only [facility] Infectious Diseases [address] [place] [id number] Ny Griffin Social History Tobacco Use Types Packs/Day Years Used Date Smoking Tobacco: Never Smokeless Tobacco: Never Alcohol Use Standard Drinks/Week Comments Yes 0 (1 standard drink = 0.6 oz pur e alcohol) occassional Sex and Gender Information Value Date Recorded Sex Assigned at Not on file 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
--- OUTSIDE RECORDS SUMMARY | 2024-10-28 06:20 | XMS_ITS | Encounter Summary ---
Author Organization [facility] Healthcare Address [address] [place] [address] Care Team Providers Care Relay Telegrapher Name Role Phone Guero Colunga Primary Care Provider [phone] Amber Motnesinos RN Unavailable [phone] Jil Duncan MD Unavailable [phone] Encounter Details Date Type Department Care Team (Late st Contact Info) Description 03/25/2020 3:15 PM CDT Lab [address] [address] Social History Tobacco Use Types Packs/Day Years Used Date Smoking Tobacco: Never Smokeless Tobacco: Never Alcohol Use Standard Drinks/Week Comments Yes 0 (1 standard drink = 0.6 oz pur e alcohol) occassional Sex and Gender Information Value Date Recorded Sex Assigned at Not on file Legal 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 Comment: Interpretive Data: The quantifiable range of this assay is 137 IUnits/mL to 9,100,000 IUnits/mL (2.14 log IUnits/mL to 6.96 log IUnits/mL). Testing was performed by the NIA AmpliPrep/NIA TaqMan CMV Test ([employer] Testing performed at [facility] Current interpretive data was last revised on 17. CMV DNA IU/mL 197 IUnits/mL [facility] CMV DNA log IU/mL 2.29 log IUnits/mL [facility] Blood specimen (specimen) 03/25/2020 10:00 AM CDT 03/26/2020 11:18 AM CDT us Notinfile Unknown LAB MICROBIOLOGY - GENERAL ORD ERABLES Final Result [facility] Department [place] [address] * (ABNORMAL) Differential, auto (03/25/2020 9:00 AM CDT) [facility] Neutrophil abs 4.3 1.7 - 6.5 K/cumm [facility] Imm gran abs 0.0 0.0 - 0.1 K/cumm [facility] Lymphocyte abs 3.4(H) 0.8 - 3.3 K/cumm [facility] Monocyte abs 2.0(H) 0.2 - 0.8 K/cumm [facility] Eosinophil abs 0.2 0.0 - 0.5 K/cumm [facility] Basophil abs 0.1 0.0 - 0.1 K/cumm [facility] Neutrophil pct 42.9 % [facility] Comment: Interpretive Data Percent cell count reference ranges are not reported, since discordance with absolute values may lead to misinterpretation of CBC data. Current Interpretive Data was last revised on 2018. Imm gran pct 0.4 % [facility] Comment: Interpretive Data Percent cell count reference ranges are not reported, since discordance with absolute values may lead to misinterpretation of CBC data. Current Interpretive Data was last revised on 2018. Lymphocyte pct 34.2 % [facility] Comment: Interpretive Data Percent cell count reference ranges are not reported, since discordance with absolute values may lead to misinterpretation of CBC data. Current Interpretive Data was last revised on 2018. Monocyte pct 19.8 % [facility] Comment: Interpretive Data Percent cell count reference ranges are not reported, since discordance with absolute values may lead to misinterpretation of CBC data. Current Interpretive Data was last revised on 2018. Eosinophil pct 1.8 % [facility] Comment: Interpretive Data Percent cell count reference ranges are not reported, since discordance with absolute values may lead to misinterpretation of CBC data. Current Interpretive Data was last revised on 2018. Basophil pct 0.9 % [facility] Comment: Interpretive Data Percent cell count reference ranges are not reported, since discordance with absolute values may lead to misinterpretation of CBC data. Current Interpretive Data was last revised on 2018. Blood specimen (specimen) 03/25/2020 9:00 AM CDT 03/25/2020 2:44 PM CDT us Notinfile Unknown LAB BLOOD ORDERABLES Final Res ult [facility] Department [place] [address] * (ABNORMAL) CBC with auto differential (03/25/2020 9:00 AM CDT) WBC 10.0(H) 3.8 - 9.9 K/cumm [facility] Hgb 14.7 13.0 - 17.5 g/dL [facility] Hct 43.7 38.9 - 50.3 % [facility] Plt 181 150 - 400 K/cumm [facility] MPV 10.5 9.1 - 12.[address] [facility] RBC 4.41 4.30 - 5.80 M/cumm [facility] MCV 99.1(H) 81.3 - 96.[address] [facility] MCH 33.3 27.1 - 33.[address] [facility] MCHC 33.6 32.3 - 35.7 g/dL [facility] RDW CV 17.2(H) 11.1 - 14.9 % [facility] RDW SD 62.5(H) 35.7 - 48.[address] [facility] NRBC abs 0.00 0.00 - 0.01 K/cumm [facility] Blood specimen (specimen) 03/25/2020 9:00 AM CDT 03/25/2020 2:44 PM CDT us Notinfile Unknown LAB BLOOD ORDERABLES Final Res ult [facility] Department [place] [address] * Glucose, random (Outreach) (03/25/2020 9:00 AM CDT) Pathologist [facility] Glucose 98 70 - 199 mg/dL [facility] Comment: Interpretive Data Fasting glucose [...] was last revised 2017. Blood specimen (specimen) 03/25/2020 9:00 AM CDT 03/25/2020 2:44 PM CDT us Notinfile Unknown LAB BLOOD ORDERABLES Final Res ult Performing Organization Address [facility] de Phone Number [facility] Department [place] [address] * (ABNORMAL) Comprehensive metabolic panel, without glucose (Outreach) (03/25/2020 9:00 AM CDT) Sodium 144 135 - 145 mmol/L [facility] Potassium, pl 3.8 3.3 - 4.9 mmol/L [facility] Chloride 105 97 - 110 mmol/L [facility] CO2 25 22 - 32 mmol/L [facility] Anion gap 14 2 - 15 mmol/L [facility] BUN 14 8 - 25 mg/dL [facility] Creatinine 0.70(L) 0.80 - 1.30 mg/dL [facility] Calcium 9.1 8.5 - 10.3 mg/dL [facility] Protein, pl 6.2(L) 6.5 - 8.5 g/dL [facility] Albumin 4.3 3.5 - 5.0 g/dL [facility] Bilirubin, total 0.5 0.1 - 1.2 mg/dL [facility] Alk phos 448(H) 40 - 130 Units/L [facility] AST 48 10 - 50 Units/L [facility] ALT 62(H) 7 - 55 Units/L [facility] Blood specimen (specimen) 03/25/2020 9:00 AM CDT 03/25/2020 2:44 PM CDT us Notinfile Unknown LAB BLOOD ORDERABLES Final Res ult Performing Organization Address [facility]/ZIP Co de Phone Number [facility] Department [place] [address] documented in this encounter Visit Diagnoses Not on filedocumented in this encounter Care Teams Relay Telegrapher Relationship Specialty Start Date End Date Guero Colunga DO PCP - General Internal Medicine 03/22/19 04/18/23 Amber Montesinos, RN Telecom Specialist Transplant 11/17/19 Jil Duncan MD Consulting Physician Infectious Diseases 01/10/20 documented as of this encounter
--- OUTSIDE RECORDS SUMMARY | 2024-10-28 06:20 | XMS_ITS | Encounter Summary ---
Author Organization [facility] Healthcare Address [address] [place] [address] Care Team Providers Care Life Care Planner Name Role Phone Guero Colunga Primary Care Provider [phone] Amber Montesinos RN Unavailable [phone] Jil Duncan MD Unavailable [phone] Encounter Details Date Type Department Care Team (Late st Contact Info) Description 04/13/2020 8:40 AM CDT Lab [facility] ([facility]) [address] [place] [phone] Cytomegalovirus (CMV) viremia (CMS/HCC) Social History Tobacco Use Types Packs/Day Years Used Date Smoking Tobacco: Never Smokeless Tobacco: Never Alcohol Use Standard Drinks/Week Comments Yes 0 (1 standard drink = 0.6 oz pur e alcohol) occassional Sex and Gender Information Value Date Recorded Sex Assigned at Not on file 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 Testing was performed by the NIA AmpliPrep/NIA TaqMan CMV Test ([employer] Testing performed at [facility] Current interpretive data was last revised on 17. 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
--- OUTSIDE RECORDS SUMMARY | 2024-10-28 06:20 | XMS_ITS | Encounter Summary ---
Author Organization [facility] Address [address] [place] [address] Phone Care Team Providers Care Director On Air Name Role Phone Guero Colunga Primary Care Provider [phone] Amber Montesinos RN Unavailable [phone] Jil Duncan MD Unavailable [phone] Reason for Visit * Auth/Cert Specialty Diagnoses / Procedures Referred By Contyadira t Referred To Contact Referral ID Status Reason Start Date Expiration Date Visits Re quested Visits Authorized [id number] 1 1 Encounter Details Date Type Department Care Team (Late st Contact Info) Description 03/22/2020 1:00 PM CDT Home Care Visit [facility] [address] [place] [address] Bria Briggs RN SN HOME VISIT Social History Tobacco Use Types Packs/Day Years Used Date Smoking Tobacco: Never Smokeless Tobacco: Never Alcohol Use Standard Drinks/Week Comments Yes 0 (1 standard drink = 0.6 oz pur e alcohol) occassional Sex and Gender Information Value Date Recorded Sex Assigned at Not on file 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 Gender Identity Not on file Sexual Orientation Straight 08/22/2021 9: 23 AM CDT documented as of this encounter Last Filed Vital Signs Vital Sign Reading Time Taken Comments Blood Pressure 105/60 03/22/2020 2:27 PM CDT Pulse 78 03/22/2020 2:27 PM CDT Temperature 36.6 ??C (97.8 ??F) 03/22/2020 2:27 PM CD T Respiratory Rate - - Oxygen Saturation 97% 03/22/2020 2:27 PM CDT Inhaled Oxygen Concentration - - [...] mL, intravenous, As needed, patency, Starting on Wed03/22/20 at 1418, Indications: Maintain Patency of Indwelling Vascular CatheterIndications:Maintain Patency of Indwelling Vascular Catheter Given 03/22/2020 2:18 PM CDT 5 mL sodium chloride 0.9 %, flush, (SALINE FLUSH INJ) 10 mL, intravenous, As needed, patency, Starting on Wed03/22/20 at 1418, Indications: Maintain Patency of Indwelling Vascular CatheterIndications:Maintain Patency of Indwelling Vascular Catheter Given 03/22/2020 2:18 PM CDT 10 mL documented in this encounter Home Health Visit - Care Plan Visit Details Visit Type -SN Home Visit Discipline -Intermediate Problems Problem Description Start Date Status Goals Interve ntions Monitor patient's vital signs every home health visit Disciplines: Intermediate Monitor patient's vital signs every home health visit. 02/18/2020 Active 1 goal linked to scheduled/documen mohsen intervention 1 goal intervention scheduled/document ed in this visit Greenway Precautions Disciplines: Intermediate Greenway Precautions 02/18/2020 Active 1 goal linked to scheduled/documen mohsen intervention 1 goal intervention scheduled/document ed in this visit Collect Specimen/Lab Draw Disciplines: Intermediate Need to collect specimen sample 02/18/2020 Active - 1 problem intervention scheduled/document ed in this visit Goals Goal Associated Problem Outcome Goal Met? Visit Notes Measure vital signs during every home health visit during episode of care Description: Home rn neonatal to measure vital signs during every home health visit during episode of care. Monitor patient's vital signs every home health visit No Demonstrate knowledge of universal precautions Description: Demonstrate knowledge of universal precautions Greenway Precautions No Interventions Intervention Associated Problem/Goal Status Variance Visit Notes Monitor Vital Signs Description: Monitor blood pressure, pulse, oxygen saturation, respirations Problem:Monitor patient's vital signs every home health visit Goal:Measure vital signs during every home health visit during episode of care Completed Aspects of Care Description: Instruct patient/caregiver on universal precautions and home infection control measures Problem:Greenway Precautions Goal:Demonstrate knowledge of universal precautions Completed Lab draw Description: Labs CMV PCR, CBC c diff and CMP 1x/week Problem:Collect Specimen/Lab Draw Completed LABS: CMP; CBC w/diff; CMV-PCR. (2-LAV vials submitted to [facility] Lab) documented in this encounter Care Teams Director On Air Relationship Specialty Start Date End Date Guero Colunga DO PCP - General Internal Medicine 03/22/19 04/18/23 Amber Montesinos, RN Development Analyst Transplant 11/17/19 Jil Duncan MD Consulting Physician Infectious Diseases 01/10/20 documented as of this encounter
--- OUTSIDE RECORDS SUMMARY | 2024-10-28 06:20 | XMS_ITS | Encounter Summary ---
Author Organization [facility] Home Care Servic es Address [address] [place] [address] Phone Care Team Providers Care Rn Midwife Name Role Phone Guero Colunga Primary Care Provider [phone] Amber Montesinos RN Unavailable [phone] Jil Duncan MD Unavailable [phone] Encounter Details Date Type Department Care Team (Late st Contact Info) Description 04/02/2020 Orders Only [facility] [address] [place] [address] Leida Obrien RPh Autoimmune hepatitis (CMS/HCC) (Primary Dx) Social History Tobacco Use Types Packs/Day Years Used Date Smoking Tobacco: Never Smokeless Tobacco: Never Alcohol Use Standard Drinks/Week Comments Yes 0 (1 standard drink = 0.6 oz pur e alcohol) occassional Sex and Gender Information Value Date Recorded Sex Assigned at Not on file 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 Gresham/Radhames Vela PharmD Weekly CBC w diff, CMV PCR, and CMP documented in this encounter Plan of Treatment Scheduled Procedures Name Priority Associated Diagnoses Date/Ti me COLONOSCOPY Encounter for screening for colorectal cancer in high risk patient Family history of rectal cancer documented as of this encounter Visit Diagnoses Diagnosis Autoimmune hepatitis (CMS/HCC) (HCC)- Primary Autoimmune hepatitis documented in this encounter Care Teams Rn Midwife Relationship Specialty Start Date End Date Guero Colunga DO PCP - General Internal Medicine 03/22/19 04/18/23 Amber Montesinos, RN Borough Coordinator Transplant 11/17/19 Jil Duncan MD Consulting Physician Infectious Diseases 01/10/20 documented as of this encounter
--- OUTSIDE RECORDS SUMMARY | 2024-10-28 06:21 | XMS_ITS | Encounter Summary ---
Author Organization [facility] Address [address] [place] [address] Phone Care Team Providers Care Automotive Warranty Administrator Name Role Phone Guero Colunga DO Primary Care Provider [phone] Amber Montesinos RN Unavailable [phone] Jil Duncan MD Unavailable [phone] Reason for Visit * Reason Onset Date Comments OPAT 03/15/2020 Encounter Details Date Type Department Care Team (Late st Contact Info) Description 03/15/2020 Telephone 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 We have been discussing this case with oncology. I???m sending a message to Dr. Duncan and will let you know. ----- Message ----- From: Leida Vela [facility] Sent: 03/15/2020 3:36 PM CDT To: Lisandra Auguste NP, Gage Noel, [facility], # Subject: RE: Lab Results Labs from today have resulted. WBC=6.4 ANC=0.6 I will be out of the office after 4 today so I have added Gage to this message. He will be workingthis weekend as well. Thanks! Kina ----- Message ----- From: Lisandra Auguste NP Sent: 03/13/2020 5:11 PM CDT To: Leida Vela [facility], [place] [facility] Id Nurse Pool Subject: RE: Lab Results Not great news. We are hoping to keep him on IV until his viral load is undetectable. Lets continuefor now and repeat a CBC on Wednesday morning. If it continues to decrease we will have to possibly decrease dose or switch to orals based on CMV level. ----- Message ----- From: Leida Vela [facility] Sent: 03/13/2020 3:20 PM CDT To: Lisandra Auguste NP, [facility] Id Nurse Pool Subject: Lab Results Beka's labs from 03/12/20 are significant for decreased ANC. WBC=6.3 ANC=1.4 Xgz=[id number] CMV pending It looks like he had [...] on filedocumented in this encounter Care Teams Automotive Warranty Administrator Relationship Specialty Start Date End Date Guero Colunga DO PCP - General Internal Medicine 03/22/19 04/18/23 Amber Montesinos, SHAILESH Osteopathic Neurologist Transplant 11/17/19 Jil Duncan MD Consulting Physician Infectious Diseases 01/10/20 documented as of this encounter
--- OUTSIDE RECORDS SUMMARY | 2024-10-28 06:21 | XMS_ITS | Encounter Summary ---
Author Organization [facility] Address [address] [place] [address] Phone Care Team Providers Care Target Aircraft Controller Name Role Phone Guero Colunga DO Primary Care Provider [phone] Amber Montesinos RN Unavailable [phone] Jil Duncan MD Unavailable [phone] Reason for Visit * Reason Onset Date Comments Patient issue/concern 03/20/2020 Encounter Details Date Type Department Care Team (Late st Contact Info) Description 03/20/2020 Telephone [facility] Infectious Diseases [address] [place] [address] Gracie Foster CMA Patient issue/concern Social History Tobacco Use Types Packs/Day Years Used Date Smoking Tobacco: Never Smokeless Tobacco: Never Alcohol Use Standard Drinks/Week Comments Yes 0 (1 standard drink = 0.6 oz pur e alcohol) occassional Sex and Gender Information Value Date Recorded Sex Assigned at Not on file 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 She gave doses of neupogen on Wednesday and Wednesday. No need for additional doses at this time. Repeat labs will be drawn on Wednesday to reassess WBC and ANC. * Telephone Encounter - Ny Griffin - 03/20/2020 8:36 AM CDT Lisandra, Can you touch base with the mother today? * Telephone Encounter - Gracie Foster CMA - 03/20/2020 8:20 AM CDT Patient mother would like a call back concerning patient lab results she says that patient was giving two doses of the neupogen over the weekend but she never received a call Wednesday with those labs results to determine if patient is suppose to take 3rd dose. documented in this encounter Plan of Treatment Scheduled Procedures Name Priority Associated Diagnoses Date/Ti me COLONOSCOPY Encounter for screening for colorectal cancer in high risk patient Family history of rectal cancer documented as of this encounter Visit Diagnoses Not on filedocumented in this encounter Care Teams Target Aircraft Controller Relationship Specialty Start Date End Date Guero Colunga DO PCP - General Internal Medicine 03/22/19 04/18/23 Amber Montesinos RN Blasting Worker Transplant 11/17/19 Jil Duncan MD Consulting Physician Infectious Diseases 01/10/20 documented as of this encounter
--- OUTSIDE RECORDS SUMMARY | 2024-10-28 06:21 | XMS_ITS | Encounter Summary ---
Author Organization [facility] Address [address] [place] [address] Phone Care Team Providers Care Rail Tractor Operator Name Role Phone Guero Colunga DO Primary Care Provider [phone] Amber Montesinos RN Unavailable [phone] Jil Duncan MD Unavailable [phone] Reason for Visit * Reason Onset Date Comments OPAT 03/18/2020 Encounter Details Date Type Department Care Team (Late st Contact Info) Description 03/18/2020 Telephone [facility] Infectious Diseases [facility] Medicine [address] [place] [address] [place] [address] Ny Griffin OPAT Social History Tobacco Use Types Packs/Day Years Used Date Smoking Tobacco: Never Smokeless Tobacco: Never Alcohol Use Standard Drinks/Week Comments Yes 0 (1 standard drink = 0.6 oz pur e alcohol) occassional Sex and Gender Information Value Date Recorded Sex Assigned at Not on file Legal Sex Male 6:28 AM RN LIAISON Gender Identity Not on file Sexual Orientation Straight 08/22/2021 9: 23 AM CDT documented as of this encounter Miscellaneous Notes * Telephone Encounter - Ny Griffin - 03/18/2020 8:09 AM CDT ----- Message from Suze Padilla sent at 03/18/2020 8:02 AM CDT ----- Regarding: FW: Lab Results ----- Message ----- From: Lisandra Auguste NP Sent: 03/15/2020 6:02 PM CDT To: Leida Vela RP, Gage Noel [facility], # Subject: RE: Lab Results Sent an email also but I spoke with Dr. Duncan who wants to continue ganciclovir and start filgrastim-sndz injection 300 mcg daily until Wednesday and recheck. Is this something you can provide and deliver to him over the weekend? ----- Message ----- From: Leida Vela RPh Sent: 03/15/2020 3:36 PM CDT To: Lisandra Auguste NP, [facility], # Subject: RE: Lab Results Labs from today have resulted. WBC=6.4 ANC=0.6 I will be out of the office after 4 today so I have added Gage to this message. He will be workingthis weekend as well. Thanks! Kina ----- Message ----- From: Lisandra Auguste NP Sent: 03/13/2020 5:11 PM CDT To: Leida Vela RPh, [facility] Id Nurse Pool Subject: RE: Lab [...] are significant for decreased ANC. WBC=6.3 ANC=1.4 Pze=984 CMV pending It looks like he had [...] on filedocumented in this encounter Care Teams Rail Tractor Operator Relationship Specialty Start Date End Date Guero Colunga DO PCP - General Internal Medicine 03/22/19 04/18/23 Amber Montesinos, SHAILESH Military Technology Manager Transplant 11/17/19 Jil Duncan MD Consulting Physician Infectious Diseases 01/10/20 documented as of this encounter
--- OUTSIDE RECORDS SUMMARY | 2024-10-28 06:21 | XMS_ITS | Encounter Summary ---
Author Organization [facility] Home Care Servic es Address [address] [place] [address] Phone Care Team Providers Care Cost Accounting Manager Name Role Phone Guero Colunga Primary Care Provider [phone] Amber Montesinos RN Unavailable [phone] Jil Duncan MD Unavailable [phone] Reason for Visit * Auth/Cert Specialty Diagnoses / Procedures Referred By Contyadira t Referred To Contact Referral ID Status Reason Start Date Expiration Date Visits Re quested Visits Authorized [id number] 1 1 Encounter Details Date Type Department Care Team (Late st Contact Info) Description 03/15/2020 9:00 AM CDT Home Care Visit [facility] [address] [place] [address] Juanita Martin RN SN HOME VISIT Social History Tobacco Use Types Packs/Day Years Used Date Smoking Tobacco: Never Smokeless Tobacco: Never Alcohol Use Standard Drinks/Week Comments Yes 0 (1 standard drink = 0.6 oz pur e alcohol) occassional Sex and Gender Information Value Date Recorded Sex Assigned at Not on file 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 Gender Identity Not on file Sexual Orientation Straight 08/22/2021 9: 23 AM CDT documented as of this encounter Last Filed Vital Signs Vital Sign Reading Time Taken Comments Blood Pressure 118/62 03/15/2020 11:30 AM CDT Pulse 68 03/15/2020 11:30 AM CDT Temperature 36.4 ??C (97.6 ??F) 03/15/2020 11:30 AM C DT Respiratory Rate 18 03/15/2020 11:30 AM CDT Oxygen Saturation 99% 03/15/2020 11:30 AM CDT Inhaled Oxygen Concentration - - [...] mL, intravenous, As needed, patency, Starting on Wed03/15/20 at 1421, Indications: Maintain Patency of Indwelling Vascular CatheterIndications:Maintain Patency of Indwelling Vascular Catheter Given 03/15/2020 11:30 AM CDT 5 mL sodium chloride 0.9 %, flush, (SALINE FLUSH INJ) 10 mL, intravenous, As needed, patency, Starting on Wed03/15/20 at 1420, Indications: Maintain Patency of Indwelling Vascular CatheterIndications:Maintain Patency of Indwelling Vascular Catheter Given 03/15/2020 11:30 AM CDT 10 mL documented in this encounter Home Health Visit - Care Plan Visit Details Visit Type -SN Home Visit Discipline -Jail Problems Problem Description Start Date Status Goals Interve ntions IV Therapy-Manag ement, Education, and Maintenance Disciplines: Jail Teaching and learning needs for performing home IV therapy 02/18/2020 Active - 2 problem interventions scheduled/document ed in this visit Medications Disciplines: Jail Management of home medications 02/18/2020 Active 1 goal linked to scheduled/documen mohsen intervention 1 goal intervention scheduled/document ed in this visit Monitor patient's vital signs every home health visit Disciplines: Jail Monitor patient's vital signs every home health visit. 02/18/2020 Active 1 goal linked to scheduled/documen mohsen intervention 1 goal intervention scheduled/document ed in this visit Collect Specimen/Lab Draw Disciplines: Jail Management of specimen samples, including lab draws, stool, urine, & tissue. 02/18/2020 Active - 1 problem intervention scheduled/document ed in this visit Infection Prevention Disciplines: Jail Infection Prevention 02/18/2020 Active 1 goal linked to scheduled/documen mohsen intervention 1 goal intervention scheduled/document ed in this visit Standardized Guidelines Disciplines: Jail Standardized Guidelines 02/18/2020 Active 1 goal linked to scheduled/documen mohsen intervention 1 goal intervention scheduled/document ed in this visit Fall Precautions/S afety Concerns Disciplines: Jail Alteration in safety 02/18/2020 Active 1 goal linked to scheduled/documen mohsen intervention 1 goal intervention scheduled/document ed in this visit Collect Specimen/Lab Draw Disciplines: Jail Need to collect specimen sample 02/18/2020 Active [...] visit during episode of care Description: Home extension work director to measure vital signs during every home health visit during episode of care. Monitor patient's vital signs every home health visit No Verbalize signs of infection Description: Verbalize signs of infection Infection Prevention No Understanding of when to notify MD in absence of home care staff Description: Understanding of when to notify MD in absence of home care staff Standardized Guidelines No Demonstrate use of safety precautions Description: Demonstrate use of safety precautions Fall Precautions/Safety Concerns No Interventions Intervention Associated Problem/Goal Status Variance Visit Notes Peripheral Line Description: Instruct patient/caregiver in how [...] protocol. Problem:IV Therapy-Management, Education, and Maintenance Completed PICC was flushed per protocol with lab specimen draw, without dificulty. Patient expressed appropriate understanding. Monitor effectiveness of drug therapy Description: Monitor effectiveness of patient's drug therapy Problem:Medications Goal:Understand and follow medication therapy Completed CBC drawn per orders and protocol, discussion with patient on medications and his well being. Patient expressed appropriate understanding. Monitor Vital Signs Description: Monitor blood pressure, pulse, oxygen saturation, respirations Problem:Monitor patient's vital signs every home health visit Goal:Measure vital signs during every home health visit during episode of care Completed Collect Specimen/Lab Draw Description: Draw labs per aseptic technique via venipuncture. May use butterfly if hard draw/PICC. WEEKLY CMV PCR, CBC WITH DIFF, COURTNEY STEWART-INFECTIOUS DISEASE Record number of attempts, delivery to lab Problem:Collect Specimen/Lab Draw Completed extra CBC/diff was ordered and obtained via PICC per established protocol and specimen to [facility] lab. Educate Patient on Infection Prevention Description: Instruct patient on signs and symptoms of infection IE: fever, odor, change in color, increased amount of drainage, purulent drainage, warmth. Problem:Infection Prevention Goal:Verbalize signs of infection Completed Hand hygiene discussed and demonstrated. Patient expressed appropriate understanding. Home Care Staff Absence Description: In absence of Home Care staff the patient/caregiver should BE ABLE TO SAFELY ADMINISTER OWN IV GANCICLOVIR Problem:Standardized Guidelines Goal:Understanding of when to notify MD in absence of home care staff Completed SN reviewed with patient and mother how to contact HH Agency and encouraged to do so for any questions/concerns, or scheduling issues. Patient/mother expressed appropriate understanding. David Fall Precautions Description: Assess patient safety Problem:Fall Precautions/Safety Concerns Goal:Demonstrate use of safety precautions Completed Pt is safe in his home. Lab draw Description: Labs CMV PCR, CBC c diff and CMP 1x/week Problem:Collect Specimen/Lab Draw Completed RN obtained CBC per PICC, and specimens to [facility] lab. This is an extra CBC ordered by Infection Doctor. documented in this encounter Care Teams Cost Accounting Manager Relationship Specialty Start Date End Date Guero Colunga DO PCP - General Internal Medicine 03/22/19 04/18/23 Amber Montesinos, SHAILESH Tractor Driver Teamster Transplant 11/17/19 Jil Duncan MD Consulting Physician Infectious Diseases 01/10/20 documented as of this encounter
--- OUTSIDE RECORDS SUMMARY | 2024-10-28 06:21 | XMS_ITS | Encounter Summary ---
Author Organization [facility] Home Care Servic es Address [address] [place] [address] Phone Care Team Providers Care Fingernail Sculpturer Name Role Phone Guero Colunga Primary Care Provider [phone] Amber Montesinos RN Unavailable [phone] Jil Duncan MD Unavailable [phone] Reason for Visit * Auth/Cert Specialty Diagnoses / Procedures Referred By Contac t Referred To Contact Referral ID Status Reason Start Date Expiration Date Visits Re quested Visits Authorized [id number] 1 1 Encounter Details Date Type Department Care Team (Late st Contact Info) Description 03/18/2020 Home Care Visit [facility] [address] [place] [address] Portillo Solares RN TRAVEL SCREENING CASE COMMUNICATION Social History Tobacco Use Types Packs/Day Years Used Date Smoking Tobacco: Never Smokeless Tobacco: Never Alcohol Use Standard Drinks/Week Comments Yes 0 (1 standard drink = 0.6 oz pur e alcohol) occassional Sex and Gender Information Value Date Recorded Sex Assigned at Not on file 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 Gender Identity Not on file Sexual Orientation Straight 08/22/2021 9: 23 AM CDT documented as of this encounter Plan of Treatment Scheduled Procedures Name Priority Associated Diagnoses Date/Ti me COLONOSCOPY Encounter for screening for colorectal cancer in high risk patient Family history of rectal cancer documented as of this encounter Visit Diagnoses Not on filedocumented in this encounter Care Teams Fingernail Sculpturer Relationship Specialty Start Date End Date CristineGeneeDO PCP - General Internal Medicine 03/22/19 04/18/23 Amber Montesinos, RN Inspector Final Assembly Mechanical Transplant 11/17/19 Jil Duncan MD Consulting Physician Infectious Diseases 01/10/20 documented as of this encounter
--- OUTSIDE RECORDS SUMMARY | 2024-10-28 06:21 | XMS_ITS | Encounter Summary ---
Author Organization [facility] Address [address] [place] [address] Phone Care Team Providers Care Telephone Solicitor Name Role Phone Guero Colunga DO Primary Care Provider [phone] Amber Montesinos RN Unavailable [phone] Jil Duncan MD Unavailable [phone] Reason for Visit * Reason Onset Date Comments OPAT 03/11/2020 Encounter Details Date Type Department Care Team (Late st Contact Info) Description 03/11/2020 Telephone [facility] Infectious Diseases [address] [place] [address] Medicine 13th [place] [address] [place] [address] Ny Griffin OPAT Social History Tobacco Use Types Packs/Day Years Used Date Smoking Tobacco: Never Smokeless Tobacco: Never Alcohol Use Standard Drinks/Week Comments Yes 0 (1 standard drink = 0.6 oz pur e alcohol) occassional Sex and Gender Information Value Date Recorded Sex Assigned at Not on file 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 Repeat CMV DNA PCR on 03/20. Will see what that shows and possibly switch to orals at that point. documented in this encounter Plan of Treatment Scheduled Procedures Name Priority Associated Diagnoses Date/Ti me COLONOSCOPY Encounter for screening for colorectal cancer in high risk patient Family history of rectal cancer documented as of this encounter Visit Diagnoses Not on filedocumented in this encounter Care Teams Telephone Solicitor Relationship Specialty Start Date End Date Guero Colunga DO PCP - General Internal Medicine 03/22/19 04/18/23 Amber Montesinos, RN Hot Repairman Transplant 11/17/19 Jil Duncan MD Consulting Physician Infectious Diseases 01/10/20 documented as of this encounter
--- OUTSIDE RECORDS SUMMARY | 2024-10-28 06:21 | XMS_ITS | Encounter Summary ---
Author Organization [facility] Address [address] [place] [address] Phone Care Team Providers Care Coagulation Operator Name Role Phone Guero Colunga Primary Care Provider [phone] Amber Montesinos RN Unavailable [phone] Jil Duncan MD Unavailable [phone] Reason for Visit * Auth/Cert Specialty Diagnoses / Procedures Referred By Contyadira t Referred To Contact Referral ID Status Reason Start Date Expiration Date Visits Re quested Visits Authorized [id number] 1 1 Encounter Details Date Type Department Care Team (Late st Contact Info) Description 03/12/2020 8:45 AM CDT Home Care Visit [facility] [address] [place] [id number] Juanita Martin RN SN HOME VISIT Social History Tobacco Use Types Packs/Day Years Used Date Smoking Tobacco: Never Smokeless Tobacco: Never Alcohol Use Standard Drinks/Week Comments Yes 0 (1 standard drink = 0.6 oz pur e alcohol) occassional Sex and Gender Information Value Date Recorded Sex Assigned at Not on file 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 Gender Identity Not on file Sexual Orientation Straight 08/22/2021 9: 23 AM CDT documented as of this encounter Last Filed Vital Signs Vital Sign Reading Time Taken Comments Blood Pressure 102/60 03/12/2020 9:20 AM CDT Pulse 76 03/12/2020 9:20 AM CDT Temperature 36.9 ??C (98.4 ??F) 03/12/2020 9:20 AM CD T Respiratory Rate 16 03/12/2020 9:20 AM CDT Oxygen Saturation 97% 03/12/2020 9:20 AM CDT Inhaled Oxygen Concentration - - [...] mL, intravenous, As needed, patency, Starting on Wed03/12/20 at 0940, Indications: Maintain Patency of Indwelling Vascular CatheterIndications:Maintain Patency of Indwelling Vascular Catheter Given 03/12/2020 9:15 AM CDT 5 mL sodium chloride 0.9 %, flush, (SALINE FLUSH INJ) 10 mL, intravenous, As needed, patency, Starting on Wed03/12/20 at 0940, Indications: Maintain Patency of Indwelling Vascular CatheterIndications:Maintain Patency of Indwelling Vascular Catheter Given 03/12/2020 9:15 AM CDT 10 mL documented in this encounter Home Health Visit - Care Plan Visit Details Visit Type -SN Home Visit Discipline -Retirement Problems Problem Description Start Date Status Goals Interve ntions Medications Disciplines: Retirement Management of IV Medications 02/18/2020 Active - 1 problem intervention scheduled/document ed in this visit IV Therapy-Manag ement, Education, and Maintenance Disciplines: Retirement Teaching and learning needs for performing home IV therapy 02/18/2020 Active - 1 problem intervention scheduled/document ed in this visit Medications Disciplines: Retirement Management of home medications 02/18/2020 Active 1 goal linked to scheduled/documen mohsen intervention 1 goal intervention scheduled/document ed in this visit Monitor patient's vital signs every home health visit Disciplines: Retirement Monitor patient's vital signs every home health visit. 02/18/2020 Active 1 goal linked to scheduled/documen mohsen intervention 1 goal intervention scheduled/document ed in this visit Collect Specimen/Lab Draw Disciplines: Retirement Management of specimen samples, including lab draws, stool, urine, & tissue. 02/18/2020 Active - 1 problem intervention scheduled/document ed in this visit Standardized Guidelines Disciplines: Retirement Standardized Guidelines 02/18/2020 Active 1 goal linked to scheduled/documen mohsen intervention 1 goal intervention scheduled/document ed in this visit Fall Precautions/S afety Concerns Disciplines: Retirement Alteration in safety 02/18/2020 Active 1 goal [...] visit during episode of care Description: Home drug safety coordinator to measure vital signs during every home [...] potential complication. Problem:Medications Completed Medications reviewed with patient who expressed appropriate understanding. Midline Description: Skilled Nurse [...] dry. Steristrip applied. Sorbaview dressing applied. New e clave applied. Connection taped securely. Monitor effectiveness of drug therapy Description: Monitor effectiveness of patient's drug therapy Problem:Medications Goal:Understand and follow medication therapy Completed Discussin with patient on how his medicine is working for him. He has a follow up visit with his Oncology Doctor. Patient expressed appropriate understanding. Monitor Vital Signs Description: Monitor blood pressure, pulse, oxygen saturation, respirations Problem:Monitor patient's vital signs every home health visit Goal:Measure vital signs during every home health visit during episode of care Completed Pt appears well hydrated, no dizziness, normal skin turgor, moist mucus membranes, blood pressure appropriate. Collect Specimen/Lab Draw Description: Draw labs per aseptic technique via venipuncture. May use butterfly if hard draw/PICC. WEEKLY CMV PCR, CBC WITH DIFF, BMP, COURTNEY MÉNDEZ-INFECTIOUS DISEASE Record number of attempts, delivery to lab Problem:Collect Specimen/Lab Draw Completed LAb specimens obtained for CMV PCR, CBC?diff, BMP via PICC without difficulty and delivered to [facility]. Home Care Staff Absence Description: In absence of Home Care staff the patient/caregiver should BE ABLE TO SAFELY ADMINISTER OWN IV GANCICLOVIR Problem:Standardized Guidelines Goal:Understanding of when to notify MD in absence of home care staff Completed Patient has help from family members to administer his IV medication. Patient aware of contact information for Agency. Patient expressed appropriate understanding. [place] Fall Precautions Description: Assess patient safety Problem:Fall Precautions/Safety Concerns Goal:Demonstrate use of safety precautions Completed Patiflorencio's home is safe. documented in this encounter Home Health Visit - Actions and Narratives Actions prrefers next SNV to be 03/20 in the AM Oncology 03/13/2020 documented in this encounter Care Teams Coagulation Operator Relationship Specialty Start Date End Date Guero Colunga DO PCP - General Internal Medicine 03/22/19 04/18/23 Amber Montesinos, SHAILESH Purchasing Administrator Transplant 11/17/19 Jil Duncan MD Consulting Physician Infectious Diseases 01/10/20 documented as of this encounter
--- OUTSIDE RECORDS SUMMARY | 2024-10-28 06:21 | XMS_ITS | Encounter Summary ---
Author Organization [facility] Healthcare Address [address] [place] [address] Care Team Providers Care Scooping Machine Tender Name Role Phone Guero Colunga Primary Care Provider [phone] Amber Montesinos RN Unavailable [phone] Jil Duncan MD Unavailable [phone] Encounter Details Date Type Department Care Team (Late st Contact Info) Description 03/18/2020 Telephone [facility] Transplant Liver [address] [facility] [phone] [place] [address] Amber Montesinos, SHAILESH Social History Tobacco Use Types Packs/Day Years Used Date Smoking Tobacco: Never Smokeless Tobacco: Never Alcohol Use Standard Drinks/Week Comments Yes 0 (1 standard drink = 0.6 oz pur e alcohol) occassional Sex and Gender Information Value Date Recorded Sex Assigned at Not on file 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 Nath at [facility] who stated the CPT 72119 was denied for medical necessity Not for location so the appeal stands as DENIED * Telephone Encounter - Amber Vargas RN - 03/18/2020 11:13 AM CDT Received denial letter from [facility] for listed CPT code. Stated in the appeal letter: A non-hospital based radiology facility was identified that can perform the requested procedure . Reviewed with Dr. Gresham, he would like to see if CPT code would be approved at listed facility below. Patient not scheduled yet- would ideally like him to be seen this March 23. Need to find out from insurance company if this facility would be approved. Are there any changes to insurance? ?? If there is a change, please indicate the new insurance details below. If it is unchanged to what is already in Epic, simply warren each with N/A Primary Insurance: Patient ID#: Group#: Insurance Phone#: ?? Radiology Test Request Details ?? Need pre-cert for:??MRI Abdomen Liver W WO Contrast? Ordering physician:??Theodore Gresham NPI:?[id number] CPT Code:??33752 CPT Code description:MRI Abdomen Liver W WO Contrast? ICD-10 Code:??Z94.4;??R74.8 ICD-10 Code description:??Liver transplant recipient; elevated liver enymes ?? Patient is having test due to:f/u imaging for lesion found on MRCP 2020?? Complications patient is having:?f/u imaging for lesion found on MRCP 2020?? Testing is to rule out the following:??f/u imaging for lesion found on MRCP 2020? Facility/Location test will be done:??[facility]- Date test will be done:??As soon as possible- waiting for clarification from insurance. Would ideally be this March 23 documented in this encounter Plan of Treatment Scheduled Procedures Name Priority Associated Diagnoses Date/Ti me COLONOSCOPY Encounter for screening for colorectal cancer in high risk patient Family history of rectal cancer documented as of this encounter Visit Diagnoses Not on filedocumented in this encounter Care Teams Scooping Machine Tender Relationship Specialty Start Date End Date Guero Colunga DO PCP - General Internal Medicine 03/22/19 04/18/23 Amber Montesinos, SHAILESH Cable Machine Operator Transplant 11/17/19 Jil Duncan MD Consulting Physician Infectious Diseases 01/10/20 documented as of this encounter
--- OUTSIDE RECORDS SUMMARY | 2024-10-28 06:21 | XMS_ITS | Encounter Summary ---
Author Organization [facility] Address [address] [place] [address] Phone Care Team Providers Care Purchasing Clerk Name Role Phone Guero Colunga DO Primary Care Provider [phone] Amber Montesinos RN Unavailable [phone] Jil Duncan MD Unavailable [phone] Encounter Details Date Type Department Care Team (Late st Contact Info) Description 03/14/2020 Orders Only [facility] [address] [place] [address] Leida Obrien RPh Social History Tobacco Use Types Packs/Day Years Used Date Smoking Tobacco: Never Smokeless Tobacco: Never Alcohol Use Standard Drinks/Week Comments Yes 0 (1 standard drink = 0.6 oz pur e alcohol) occassional Sex and Gender Information Value Date Recorded Sex Assigned at Not on file 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 Liang/Radhames Vela PharmD Okay for extra SNV to obtain CBC w/diff on [place] 5/15/20 documented in this encounter Plan of Treatment Scheduled Procedures Name Priority Associated Diagnoses Date/Ti me COLONOSCOPY Encounter for screening for colorectal cancer in high risk patient Family history of rectal cancer documented as of this encounter Visit Diagnoses Not on filedocumented in this encounter Care Teams Purchasing Clerk Relationship Specialty Start Date End Date Guero Colunga DO PCP - General Internal Medicine 03/22/19 04/18/23 Amber Montesinos, RN Parachute Manufacturing Supervisor Transplant 11/17/19 Jil Duncan MD Consulting Physician Infectious Diseases 01/10/20 documented as of this encounter
--- OUTSIDE RECORDS SUMMARY | 2024-10-28 06:21 | XMS_ITS | Encounter Summary ---
Author Organization [facility] Healthcare Address [address] [place] [address] Care Team Providers Care Public Safety Dispatcher Name Role Phone Guero Colunga DO Primary Care Provider [phone] Amber Montesinos RN Unavailable [phone] Jil Duncan MD Unavailable [phone] Encounter Details Date Type Department Care Team (Late st Contact Info) Description 03/15/2020 Telephone [facility] Transplant Liver [address] [facility] [phone] [place], [place] [id number] Amber Montesinos RN Social History Tobacco Use Types Packs/Day Years Used Date Smoking Tobacco: Never Smokeless Tobacco: Never Alcohol Use Standard Drinks/Week Comments Yes 0 (1 standard drink = 0.6 oz pur e alcohol) occassional Sex and Gender Information Value Date Recorded Sex Assigned at Not on file 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 Gender Identity Not on file Sexual Orientation Straight 08/22/2021 9: 23 AM CDT documented as of this encounter Miscellaneous Notes * Telephone Encounter - Amber Vargas RN - 03/15/2020 1:44 PM CDT Left voicemail for mom to call about rescheduling MRI documented in this encounter Plan of Treatment Scheduled Procedures Name Priority Associated Diagnoses Date/Ti me COLONOSCOPY Encounter for screening for colorectal cancer in high risk patient Family history of rectal cancer documented as of this encounter Visit Diagnoses Not on filedocumented in this encounter Care Teams Public Safety Dispatcher Relationship Specialty Start Date End Date Guero Colunga DO PCP - General Internal Medicine 03/22/19 04/18/23 Amber Montesinos, RN Hinging Machine Operator Transplant 11/17/19 Jil Duncan MD Consulting Physician Infectious Diseases 01/10/20 documented as of this encounter
--- OUTSIDE RECORDS SUMMARY | 2024-10-28 06:21 | XMS_ITS | Encounter Summary ---
Author Organization [facility] Healthcare Address [address] [place] [address] Care Team Providers Care Microstrategy Architect Developer Name Role Phone Guero Colunga DO Primary Care Provider [phone] Amber Montesinos RN Unavailable [phone] Jil Duncan MD Unavailable [phone] Encounter Details Date Type Department Care Team (Late st Contact Info) Description 03/19/2020 Orders Only [facility] Transplant Liver [address] [facility] [phone] [place] [address] Amber Montesinos, RN Social History Tobacco Use Types Packs/Day Years Used Date Smoking Tobacco: Never Smokeless Tobacco: Never Alcohol Use Standard Drinks/Week Comments Yes 0 (1 standard drink = 0.6 oz pur e alcohol) occassional Sex and Gender Information Value Date Recorded Sex Assigned at Not on file 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 Gender Identity Not on file Sexual Orientation Straight 08/22/2021 9: 23 AM CDT documented as of this encounter Plan of Treatment Scheduled Procedures Name Priority Associated Diagnoses Date/Ti me COLONOSCOPY Encounter for screening for colorectal cancer in high risk patient Family history of rectal cancer documented as of this encounter Visit Diagnoses Not on filedocumented in this encounter Care Teams Microstrategy Architect Developer Relationship Specialty Start Date End Date Guero oClunga DO PCP - General Internal Medicine 03/22/19 04/18/23 Amber Montesinos, SHAILESH Skiver Hand Transplant 11/17/19 Jil Duncan MD Consulting Physician Infectious Diseases 01/10/20 documented as of this encounter
--- OUTSIDE RECORDS SUMMARY | 2024-10-28 06:21 | XMS_ITS | Encounter Summary ---
Author Organization [facility] Address [address] [place] [address] Care Team Providers Care Car Sealer Name Role Phone Guero Colunga Primary Care Provider [phone] Amber Montesinos RN Unavailable [phone] Jil Duncan MD Unavailable [phone] Encounter Details Date Type Department Care Team (Late st Contact Info) Description 03/12/2020 11:00 AM CDT Lab [address] [address] Social History Tobacco Use Types Packs/Day Years Used Date Smoking Tobacco: Never Smokeless Tobacco: Never Alcohol Use Standard Drinks/Week Comments Yes 0 (1 standard drink = 0.6 oz pur e alcohol) occassional Sex and Gender Information Value Date Recorded Sex Assigned at Not on file 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 Gender Identity Not on file Sexual Orientation Straight 08/22/2021 9: 23 AM CDT documented as of this encounter Plan of Treatment Pending Results Name Type Priority Associated Diagnoses Date /Time Comprehensive metabolic panel (Outreach) Lab Routine 03/12/2020 11:1 4 AM CDT Scheduled Procedures Name Priority Associated Diagnoses Date/Ti me COLONOSCOPY Encounter for screening for colorectal cancer in high risk patient Family history of rectal cancer documented as of this encounter Procedures Procedure Name Priority Date/Time Associated Diagnosis Comments CYTOMEGALOVIRUS (CMV) DNA, QUANT GEN LAB Routine 03/12/2020 9:00 AM CDT GLUCOSE, RANDOM (OUTREACH) Routine 03/12/2020 9:00 AM CDT EGFR Routine 03/12/2020 9:00 AM CDT DIFFERENTIAL AUTO Routine 03/12/2020 9:0 0 AM CDT COMPREHENSIVE METABOLIC PANEL WITHOUT GLUCOSE (OUTREACH) Routine 03/12/2020 9:00 AM CDT CBC WITH AUTO DIFFERENTIAL Routine 03/12/2020 9:00 AM CDT documented in this encounter Results * eGFR (03/12/2020 9:00 AM CDT) [facility] eGFR 139 mL/min/1.7 3 m2 [facility] Comment: Interpretive Data Reference Interval Normal ?>/= 90 mL/min/1.73m2 Mildly decreased* ? 60 - 89 mL/min/1.73m2 Mildly to moderately decreased ?45 - 59 mL/min/1.73m2 Moderately to severely decreased ??30 - 44 mL/min/1.73m2 Severely decreased ?15 - 29 mL/min/1.73m2 Kidney Failure ?< 15 ??mL/min/1.73m2 *Relative to young adult level If -Palauan multiply value by 1.16. Estimated glomerular filtration [...] was last reviewed 2016. Blood specimen (specimen) 03/12/2020 9:00 AM CDT 03/12/2020 11:01 AM CDT us Guero Colunga DO LAB BLOOD ORDERABLES Final Resul t [facility] [address] Department [place] [address] * (ABNORMAL) Differential, auto (03/12/2020 9:00 AM CDT) Neutrophil abs 1.4(L) 1.7 - 6.5 K/cumm [facility] Imm gran abs 0.1 0.0 - 0.1 K/cumm [facility] Lymphocyte abs 3.1 0.8 - 3.3 K/cumm [facility] Monocyte abs 1.4(H) 0.2 - 0.8 K/cumm [facility] Eosinophil abs 0.2 0.0 - 0.5 K/cumm [facility] Basophil abs 0.1 0.0 - 0.1 K/cumm [facility] Neutrophil pct 22.4 % [facility] Comment: Interpretive Data Percent cell count reference ranges are not reported, since discordance with absolute values may lead to misinterpretation of CBC data. Current Interpretive Data was last revised on 2018. Imm gran pct 1.1 % [facility] Comment: Interpretive Data Percent cell count reference ranges are not reported, since discordance with absolute values may lead to misinterpretation of CBC data. Current Interpretive Data was last revised on 2018. Lymphocyte pct 49.8 % [facility] Comment: Interpretive Data Percent cell count reference ranges are not reported, since discordance with absolute values may lead to misinterpretation of CBC data. Current Interpretive Data was last revised on 2018. Monocyte pct 22.1 % [facility] Comment: Interpretive Data Percent cell count reference ranges are not reported, since discordance with absolute values may lead to misinterpretation of CBC data. Current Interpretive Data was last revised on 2018. Eosinophil pct 3.3 % [facility] Comment: Interpretive Data Percent cell count reference ranges are not reported, since discordance with absolute values may lead to misinterpretation of CBC data. Current Interpretive Data was last revised on 2018. Basophil pct 1.3 % [facility] Comment: Interpretive Data Percent cell count reference ranges are not reported, since discordance with absolute values may lead to misinterpretation of CBC data. Current Interpretive Data was last revised on 2018. Blood specimen (specimen) 03/12/2020 9:00 AM CDT 03/12/2020 10:56 AM CDT Guero Cristine DO LAB BLOOD ORDERABLES Final Resul t Performing Organization Address [facility] Co de Phone Number [facility] [address] [place] [address] * (ABNORMAL) Cytomegalovirus (CMV) DNA PCR, quantitative Blood (03/12/2020 9:00 AM CDT) [facility] Signature CMV DNA Detected( A) [facility] Comment: Interpretive Data: The quantifiable range of this assay is 137 IUnits/mL to 9,100,000 IUnits/mL (2.14 log IUnits/mL to 6.96 log IUnits/mL). Testing was performed by the [employer] AmpliPrep/NIA TaqMan CMV Test ([employer] Testing performed at [facility] Current interpretive data was last revised on 17. Testing performed by: [facility], [address] [place]., [address] CMV DNA IU/mL 141 IUnits/mL [facility] Comment:Testing performed by : [facility], [address] [place]., [address] CMV DNA log IU/mL 2.15 log IUnits/mL [facility] Comment:Testing performed by : [facility], [address] [place]., [address] Blood specimen (specimen) 03/12/2020 9:00 AM CDT 03/13/2020 10:30 AM CDT Guerodenise Colunga DO LAB MICROBIOLOGY - GENERAL ORDER DARCY Final Result Performing Organization Address [facility]/ZIP Co de Phone Number [facility] [address] Department [place] [address] * (ABNORMAL) CBC with auto differential (03/12/2020 9:00 AM CDT) WBC 6.3 3.8 - 9.9 K/cumm [facility] Hgb 14.7 13.0 - 17.5 g/dL [facility] Hct 42.8 38.9 - 50.3 % [facility] Plt 235 150 - 400 K/cumm [facility] MPV 10.6 9.1 - 12.3 fL [facility] RBC 4.40 4.30 - 5.80 M/cumm [facility] MCV 97.3(H) 81.3 - 96.4 fL [facility] MCH 33.4(H) 27.1 - 33.3 pg [facility] MCHC 34.3 32.3 - 35.7 g/dL [facility] RDW CV 16.0(H) 11.1 - 14.9 % [facility] RDW SD 58.2(H) 35.7 - 48.1 fL [facility] NRBC abs 0.00 0.00 - 0.01 K/cumm [facility] Blood specimen (specimen) 03/12/2020 9:00 AM CDT 03/12/2020 10:56 AM CDT us Guero Colunga DO LAB BLOOD ORDERABLES Final Resul t [facility] [address] Department [place] [address] * Glucose, random (Outreach) (03/12/2020 9:00 AM CDT) Pathologist [facility] Glucose 137 70 - 199 mg/dL [facility] Comment: Interpretive Data Fasting glucose [...] was last revised 2017. Blood specimen (specimen) 03/12/2020 9:00 AM CDT 03/12/2020 10:54 AM CDT Narrative [facility] - 03/12/2020 11:14 AM CDT FAX RESULTS TO [phone] Gueroricci Colunga DO LAB BLOOD ORDERABLES Final Resul t [facility] [address] Department of Laboratories [place] [id number] * (ABNORMAL) Comprehensive metabolic panel, without glucose (Outreach) (03/12/2020 9:00 AM CDT) Sodium 142 135 - 145 mmol/L [facility] Potassium, pl 4.1 3.3 - 4.9 mmol/L [facility] Chloride 108 97 - 110 mmol/L [facility] CO2 21(L) 22 - 32 mmol/L [facility] Anion gap 13 2 - 15 mmol/L [facility] BUN 9 8 - 25 mg/dL [facility] Creatinine 0.59(L) 0.80 - 1.30 mg/dL [facility] Calcium 8.9 8.5 - 10.3 mg/dL [facility] Protein, pl 5.7(L) 6.5 - 8.5 g/dL [facility] Albumin 4.2 3.5 - 5.0 g/dL [facility] Bilirubin, total 0.4 0.1 - 1.2 mg/dL [facility] Alk phos 471(H) 40 - 130 Units/L [facility] AST 48 10 - 50 Units/L [facility] ALT 51 7 - 55 Units/L [facility] Blood specimen (specimen) 03/12/2020 9:00 AM CDT 03/12/2020 10:54 AM CDT Narrative [facility] - 03/12/2020 11:17 AM CDT FAX RESULTS TO [phone] Guero Colunga DO LAB BLOOD ORDERABLES Final Resul t [facility] [address] Department [place] [address] documented in this encounter Visit Diagnoses Not on filedocumented in this encounter Care Teams Car Sealer Relationship Specialty Start Date End Date Guero Colunga DO PCP - General Internal Medicine 03/22/19 04/18/23 Amber Montesinos, SHAILESH Process Safety Management Engineer Transplant 11/17/19 Jil Duncan MD Consulting Physician Infectious Diseases 01/10/20 documented as of this encounter
--- OUTSIDE RECORDS SUMMARY | 2024-10-28 06:21 | XMS_ITS | Encounter Summary ---
Author Organization [facility] Address [address] [place] [address] Phone Care Team Providers Care Meat Packer Name Role Phone Guero Colunga Primary Care Provider [phone] Amber Montesinos RN Unavailable [phone] Jil Duncan MD Unavailable [phone] Encounter Details Date Type Department Care Team (Late st Contact Info) Description 03/18/2020 Orders Only [facility] [address] [place] [address] Gage Noel, [facility] Social History Tobacco Use Types Packs/Day Years Used Date Smoking Tobacco: Never Smokeless Tobacco: Never Alcohol Use Standard Drinks/Week Comments Yes 0 (1 standard drink = 0.6 oz pur e alcohol) occassional Sex and Gender Information Value Date Recorded Sex Assigned at Not on file 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 Duncan/ Triston Noel PharmD Filgrastim-sndz 300mg/0.5mL subcutaneously x 3 days Okay for extra SNV to obtain CBC w/diff on Wednesday03/18/20 documented in this encounter Plan of Treatment Scheduled Procedures Name Priority Associated Diagnoses Date/Ti me COLONOSCOPY Encounter for screening for colorectal cancer in high risk patient Family history of rectal cancer documented as of this encounter Visit Diagnoses Not on filedocumented in this encounter Care Teams Meat Packer Relationship Specialty Start Date End Date Guero Colunga DO PCP - General Internal Medicine 03/22/19 04/18/23 Amber Montesinos, SHAILESH Agronomy Instructor Transplant 11/17/19 Jil Duncan MD Consulting Physician Infectious Diseases 01/10/20 documented as of this encounter
--- OUTSIDE RECORDS SUMMARY | 2024-10-28 06:21 | XMS_ITS | Encounter Summary ---
Author Organization [facility] Healthcare Address [address] [place] [address] Care Team Providers Care Cook Supervisor Name Role Phone Guero Colunga DO Primary Care Provider Amber Montesinos RN Unavailable [phone] Jil Duncan MD Unavailable [phone] Encounter Details Date Type Department Care Team (Late st Contact Info) Description 03/15/2020 2:15 PM CDT Lab [address] [address] Social History Tobacco Use Types Packs/Day Years Used Date Smoking Tobacco: Never Smokeless Tobacco: Never Alcohol Use Standard Drinks/Week Comments Yes 0 (1 standard drink = 0.6 oz pur e alcohol) occassional Sex and Gender Information Value Date Recorded Sex Assigned at Not on file 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 We are giving him filgrastrim-sndz over the weekend for his neutropenia and rechecking on Wednesday. Lisandra documented in this encounter Plan of Treatment Scheduled Procedures Name Priority Associated Diagnoses Date/Ti me COLONOSCOPY Encounter for screening for colorectal cancer in high risk patient Family history of rectal cancer documented as of this encounter Procedures Procedure Name Priority Date/Time Associated Diagnosis Comments DIFFERENTIAL AUTO Routine 03/15/2020 11: 30 AM CDT EXTRA RED NOGEL Routine 03/15/2020 11:30 AM CDT CBC WITH AUTO DIFFERENTIAL Routine 03/15/2020 11:30 AM CDT documented in this encounter Results * Extra Red Nogel (03/15/2020 11:30 AM CDT) [facility] Archive Tube Complete [facility] Blood specimen (specimen) 03/15/2020 11:30 AM CDT 03/15/2020 2:15 PM CDT us Physician No LAB BLOOD ORDERABLES Final Resul t [facility] [address] Department [place] [address] * (ABNORMAL) Differential, auto (03/15/2020 11:30 AM CDT) [facility] Neutrophil abs 0.6(L) 1.7 - 6.5 K/cumm [facility] Imm gran abs 0.0 0.0 - 0.1 K/cumm [facility] Lymphocyte abs 3.7(H) 0.8 - 3.3 K/cumm [facility] Monocyte abs 1.7(H) 0.2 - 0.8 K/cumm [facility] Eosinophil abs 0.3 0.0 - 0.5 K/cumm [facility] Basophil abs 0.1 0.0 - 0.1 K/cumm [facility] Neutrophil pct 9.6 % [facility] Comment: Interpretive Data Percent cell count reference ranges are not reported, since discordance with absolute values may lead to misinterpretation of CBC data. Current Interpretive Data was last revised on 2018. Imm gran pct 0.3 % [facility] Comment: Interpretive Data Percent cell count reference ranges are not reported, since discordance with absolute values may lead to misinterpretation of CBC data. Current Interpretive Data was last revised on 2018. Lymphocyte pct 57.4 % [facility] Comment: Interpretive Data Percent cell count reference ranges are not reported, since discordance with absolute values may lead to misinterpretation of CBC data. Current Interpretive Data was last revised on 2018. Monocyte pct 27.3 % [facility] Comment: Interpretive Data Percent cell count reference ranges are not reported, since discordance with absolute values may lead to misinterpretation of CBC data. Current Interpretive Data was last revised on 2018. Eosinophil pct 4.1 % [facility] Comment: Interpretive Data Percent cell count reference ranges are not reported, since discordance with absolute values may lead to misinterpretation of CBC data. Current Interpretive Data was last revised on 2018. Basophil pct 1.3 % [facility] Comment: Interpretive Data Percent cell count reference ranges are not reported, since discordance with absolute values may lead to misinterpretation of CBC data. Current Interpretive Data was last revised on 2018. Blood specimen (specimen) 03/15/2020 11:30 AM CDT 03/15/2020 2:14 PM CDT us Physician No LAB BLOOD ORDERABLES Final Resul t [facility] [address] Department [place] [address] * (ABNORMAL) CBC with auto differential (03/15/2020 11:30 AM CDT) WBC 6.4 3.8 - 9.9 K/cumm [facility] Hgb 14.5 13.0 - 17.5 g/dL [facility] Hct 42.2 38.9 - 50.3 % [facility] Plt 225 150 - 400 K/cumm [facility] MPV 10.1 9.1 - 12.3 fL [facility] RBC 4.34 4.30 - 5.80 M/cumm [facility] MCV 97.2(H) 81.3 - 96.4 fL [facility] MCH 33.4(H) 27.1 - 33.3 pg [facility] MCHC 34.4 32.3 - 35.7 g/dL [facility] RDW CV 16.5(H) 11.1 - 14.9 % [facility] RDW SD 59.6(H) 35.7 - 48.1 fL [facility] NRBC abs 0.00 0.00 - 0.01 K/cumm [facility] Blood specimen (specimen) 03/15/2020 11:30 AM CDT 03/15/2020 2:14 PM CDT us Physician No LAB BLOOD ORDERABLES Final Resul t [facility] [address] Department [place] [address] documented in this encounter Visit Diagnoses Not on filedocumented in this encounter Care Teams Cook Supervisor Relationship Specialty Start Date End Date Guero Colunga DO PCP - General Internal Medicine 03/22/19 04/18/23 Amber Montesinos, RN Election Watcher Transplant 11/17/19 Jil Duncan MD Consulting Physician Infectious Diseases 01/10/20 documented as of this encounter
--- OUTSIDE RECORDS SUMMARY | 2024-10-28 06:21 | XMS_ITS | Encounter Summary ---
Author Organization [facility] Healthcare Address [address] [place] [address] Care Team Providers Care Freight Clerk Name Role Phone Guero Colunga Primary Care Provider [phone] Amber Montesinos RN Unavailable [phone] Jil Duncan MD Unavailable [phone] Encounter Details Date Type Department Care Team (Late st Contact Info) Description 03/14/2020 Telephone [facility] Transplant Liver [address] [facility] [phone] [place] [address] Eli Brink Social History Tobacco Use Types Packs/Day Years Used Date Smoking Tobacco: Never Smokeless Tobacco: Never Alcohol Use Standard Drinks/Week Comments Yes 0 (1 standard drink = 0.6 oz pur e alcohol) occassional Sex and Gender Information Value Date Recorded Sex Assigned at Not on file 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 Gresham regarding patient's denial of appeal letter. Awaiting confirmation for next steps. * Telephone Encounter - Eli Brink - 03/14/2020 10:28 AM CDT [facility] Determination saved in media documented in this encounter Plan of Treatment Scheduled Procedures Name Priority Associated Diagnoses Date/Ti me COLONOSCOPY Encounter for screening for colorectal cancer in high risk patient Family history of rectal cancer documented as of this encounter Visit Diagnoses Not on filedocumented in this encounter Care Teams Freight Clerk Relationship Specialty Start Date End Date Guero Colunga DO PCP - General Internal Medicine 03/22/19 04/18/23 Amber Montesinos, RN Safety Lamp Keeper Transplant 11/17/19 Jil Duncan MD Consulting Physician Infectious Diseases 01/10/20 documented as of this encounter
--- OUTSIDE RECORDS SUMMARY | 2024-10-28 06:21 | XMS_ITS | Encounter Summary ---
Author Organization [facility] Address [address] [place] [address] Phone Care Team Providers Care Cs Associate Name Role Phone Guero Colunga Primary Care Provider [phone] Amber Montesinos RN Unavailable [phone] Jil Duncan MD Unavailable [phone] Reason for Visit * Auth/Cert Specialty Diagnoses / Procedures Referred By Contac t Referred To Contact Referral ID Status Reason Start Date Expiration Date Visits Re quested Visits Authorized [id number] 1 1 Encounter Details Date Type Department Care Team (Late st Contact Info) Description 03/11/2020 Home Care Visit [facility] [address] [place] [address] Juanita Martin RN TRAVEL SCREENING CASE COMMUNICATION Social History Tobacco Use Types Packs/Day Years Used Date Smoking Tobacco: Never Smokeless Tobacco: Never Alcohol Use Standard Drinks/Week Comments Yes 0 (1 standard drink = 0.6 oz pur e alcohol) occassional Sex and Gender Information Value Date Recorded Sex Assigned at Not on file Legal 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 PER DIEM Gender Identity Not on file Sexual Orientation Straight 08/22/2021 9: 23 AM CDT documented as of this encounter Plan of Treatment Scheduled Procedures Name Priority Associated Diagnoses Date/Ti me COLONOSCOPY Encounter for screening for colorectal cancer in high risk patient Family history of rectal cancer documented as of this encounter Visit Diagnoses Not on filedocumented in this encounter Care Teams Cs Associate Relationship Specialty Start Date End Date Guero Colunga DO PCP - General Internal Medicine 03/22/19 04/18/23 Amber Montesinos, RN Transmission Builder Transplant 11/17/19 Jil Duncan MD Consulting Physician Infectious Diseases 01/10/20 documented as of this encounter
--- OUTSIDE RECORDS SUMMARY | 2024-10-28 06:21 | XMS_ITS | Encounter Summary ---
Author Organization [facility] Address [address] [place] [address] Phone Care Team Providers Care Shallot Cleaner Name Role Phone Guero Colunga Primary Care Provider [phone] Amber Montesinos RN Unavailable [phone] Jil Duncan MD Unavailable [phone] Reason for Visit * Auth/Cert Specialty Diagnoses / Procedures Referred By Contac t Referred To Contact Referral ID Status Reason Start Date Expiration Date Visits Re quested Visits Authorized [id number] 1 1 Encounter Details Date Type Department Care Team (Late st Contact Info) Description 03/18/2020 11:30 AM CDT Home Care Visit [facility] [address] [place] [id number] Portillo Solares RN SN HOME VISIT Social History Tobacco Use Types Packs/Day Years Used Date Smoking Tobacco: Never Smokeless Tobacco: Never Alcohol Use Standard Drinks/Week Comments Yes 0 (1 standard drink = 0.6 oz pur e alcohol) occassional Sex and Gender Information Value Date Recorded Sex Assigned at Not on file Legal Sex Male 6:28 AM MUTTON PUNCHER Gender Identity Not on file Sexual [...] mL, intravenous, As needed, patency, Starting on Wed03/20/20 at 0752, Indications: Maintain Patency of Indwelling Vascular CatheterIndications:Maintain Patency of Indwelling Vascular Catheter Given 03/20/2020 7:52 AM CDT 5 mL sodium chloride 0.9 %, flush, (SALINE FLUSH INJ) 10 mL, intravenous, As needed, patency, Starting on Wed03/20/20 at 0752, Indications: Maintain Patency of Indwelling Vascular CatheterIndications:Maintain Patency of Indwelling Vascular Catheter Given 03/18/2020 7:52 AM CDT 10 mL documented in this encounter Home Health Visit - Care Plan Visit Details Visit Type -SN Home Visit Discipline -Fdc Problems Problem Description Start Date Status Goals Interve ntions Medications Disciplines: Fdc Management of IV Medications 02/18/2020 Active - [...] in this visit Collect Specimen/Lab Draw Disciplines: Fdc Management of specimen samples, including lab draws, stool, urine, & tissue. 02/18/2020 Active - 1 problem intervention scheduled/document ed in this visit Standardized Guidelines Disciplines: Fdc Standardized Guidelines 02/18/2020 Active 1 goal linked to scheduled/documen mohsen intervention 1 goal intervention scheduled/document ed in this visit [place] Precautions Disciplines: Fdc [place] Precautions 02/18/2020 Active 1 goal linked to scheduled/documen mohsen intervention 1 goal intervention scheduled/document ed in this visit Collect Specimen/Lab Draw Disciplines: Fdc Need to collect specimen sample 02/18/2020 Active - 1 problem intervention scheduled/document ed in this visit Goals Goal Associated Problem Outcome Goal Met? Visit Notes Measure vital signs during every home health visit during episode of care Description: Home lumber sticker to measure vital signs during every home health visit during episode of care. Monitor patient's vital signs every home health visit No Understanding of when to notify MD in absence of home care staff Description: Understanding of when to notify MD in absence of home care staff Standardized Guidelines No Demonstrate knowledge of universal precautions Description: Demonstrate knowledge of universal precautions [place] Precautions No Interventions Intervention Associated Problem/Goal Status Variance Visit Notes Instruct on Medication Management Description: Instruct patient/caregiver in medication administration, purpose, dosages, preparation, scheduling, side effects, food/drug interactions, storage, drug allergies, and potential complication. Problem:Medications Completed Patient instructed on medication administration, purpose, dosages, preparation, scheduling, side effects, food/drug interactions, and potential complications. Current regimen and compliance reviewed with Patient. Patient verbalize ability to perform home IV therapy. Medications taught GANCICLOVIR. Peripheral Line Description: Instruct patient/caregiver in how to gather supplies, how to restock IV supplies in the home, prepare supplies, administer IV medication and disconnect IV medication, inspecting solution and supplies before infusing, and waste disposal. Problem:IV Therapy-Management, Education, and Maintenance Completed PICC Line Description: Skilled Nurse to instruct patient/caregiver on how to properly administer medication saline and heparin. Skilled Nurse to instruct patient/caregiver to administer IV medication as ordered including saline and heparin flushes. Reason for Therapy: CMV VIREMIA Problem:IV Therapy-Management, Education, and Maintenance Completed Midline Description: Skilled Nurse to instruct patient/caregiver [...] PICC Problem:IV Therapy-Management, Education, and Maintenance Completed RN PERFORMED STERILE IV DRESSING CHANGE, NO REDNESS/DRAINAGE NOTED TO SITE IV Management and Education Description: Skilled Nurse [...] health visit during episode of care Scheduled Collect Specimen/Lab Draw Description: Draw labs per aseptic technique via venipuncture. May use butterfly if hard draw/PICC. WEEKLY CMV PCR, CBC WITH DIFF, BMPCOURTNEY-INFECTIOUS DISEASE Record number of attempts, delivery to lab Problem:Collect Specimen/Lab Draw Completed Home Care Staff Absence Description: In absence of Home Care staff the patient/caregiver should BE ABLE TO SAFELY ADMINISTER OWN IV GANCICLOVIR Problem:Standardized Guidelines Goal:Understanding of when to notify MD in absence of home care staff Completed Aspects of Care Description: Instruct patient/caregiver on universal precautions and home infection control measures Problem:[place] Precautions Goal:Demonstrate knowledge of universal precautions Completed Lab draw Description: Labs CMV PCR, CBC c diff and CMP 1x/week Problem:Collect Specimen/Lab Draw Completed RN [facility] VIA IV FOR LABS BELOW AFTER WASTE OF 7ML BLOOD, SENT TO [facility] VIA ARCH BLASTING CLAY MINER documented in this encounter Home Health Visit - Actions and Narratives Actions RN [facility] ORDEDED, RN CHANGED IV DRESSING, PATIENT TOLERATED WELL, STATES NO PROBLEMS WITH INFUSIONS, STATES TACROLIMUS LEVELS CHECKED LAST WEEK documented in this encounter Care Teams Shallot Cleaner Relationship Specialty Start Date End Date Guero Colunga DO PCP - General Internal Medicine 03/22/19 04/18/23 Amber Montesinos, SHAILESH Financial Wellness Coach Transplant 11/17/19 Jil Duncan MD Consulting Physician Infectious Diseases 01/10/20 documented as of this encounter
--- OUTSIDE RECORDS SUMMARY | 2024-10-28 06:21 | XMS_ITS | Encounter Summary ---
Author Organization [facility] Healthcare Address [address] [place] [address] Care Team Providers Care Customer Engineer Name Role Phone Guero Colunga Primary Care Provider [phone] Amber Montesinos RN Unavailable [phone] Jil Duncan MD Unavailable [phone] Encounter Details Date Type Department Care Team (Late st Contact Info) Description 03/19/2020 Telephone [facility] Trans[facility] Liver [address] [facility] [phone] [place] [address] Eli Brink Social History Tobacco Use Types Packs/Day Years Used Date Smoking Tobacco: Never Smokeless Tobacco: Never Alcohol Use Standard Drinks/Week Comments Yes 0 (1 standard drink = 0.6 oz pur e alcohol) occassional Sex and Gender Information Value Date Recorded Sex Assigned at Not on file Legal Sex Male 6:28 AM RE DYE HAND Gender Identity Not on file Sexual Orientation Straight 08/22/2021 9: 23 AM CDT documented as of this encounter Miscellaneous Notes * Telephone Encounter - Neida Kelley - 03/19/2020 3:11 PM CDT Spoke to Trina Muñoz at [facility] who approved CPT 38371 Auth# [id number] Good 03-19-2020 through 05-03-2020 * Telephone Encounter - Eli Brink - 03/19/2020 1:27 PM CDT Are there any changes to insurance? If there is a change, please indicate the new insurance details below. If it is unchanged to what is already in Epic, simply warren each with N/A Primary Insurance: Patient ID#: Group#: Insurance Phone#: ?? Radiology Test Request Details ?? Need pre-cert for: CT Abdomen 3 Phase ? Ordering physician: Theodore Gresham CPT Code: 74540 CPT Code description:CT Abdomen 3 Phase ? ICD-10 Code: Z94.4; R74.8 ICD-10 Code description: history of liver transplant, elevated liver enzymes ?? Patient is having test due to: f/u imaging for lesion found on MRCP 2020 Complications patient is having: f/u imaging for lesion found on MRCP 2020 Testing is to rule out the following: f/u imaging for lesion found on MRCP 2020 Facility/Location test will be done: [facility] Date test will be done: 04/05/2020 ?? documented in this encounter Plan of Treatment Scheduled Procedures Name Priority Associated Diagnoses Date/Ti me COLONOSCOPY Encounter for screening for colorectal cancer in high risk patient Family history of rectal cancer documented as of this encounter Visit Diagnoses Not on filedocumented in this encounter Care Teams Customer Engineer Relationship Specialty Start Date End Date Guero Colunga DO PCP - General Internal Medicine 03/22/19 04/18/23 Amber Montesinos, SHAILESH Wreath And Garland Maker Hand Transplant 11/17/19 Jil Duncan MD Consulting Physician Infectious Diseases 01/10/20 documented as of this encounter
--- OUTSIDE RECORDS SUMMARY | 2024-10-28 06:21 | XMS_ITS | Encounter Summary ---
Author Organization [facility] Healthcare Address [address] [place] [address] Care Team Providers Care Air Conditioner Installer Helper Name Role Phone Gureo Colunga Primary Care Provider [phone] Amber Montesinos RN Unavailable [phone] Jil Duncan MD Unavailable [phone] Encounter Details Date Type Department Care Team (Late st Contact Info) Description 03/06/2020 Telephone [facility] Trans[facility] Liver [address] [facility] [address] [phone] [place] [address] Jacquelyn Welsh Social History Tobacco Use Types Packs/Day Years Used Date Smoking Tobacco: Never Smokeless Tobacco: Never Alcohol Use Standard Drinks/Week Comments Yes 0 (1 standard drink = 0.6 oz pur e alcohol) occassional Sex and Gender Information Value Date Recorded Sex Assigned at Not on file Legal Sex Male 6:28 AM SIGN ARTIST Gender Identity Not on file Sexual Orientation Straight 08/22/2021 9: 23 AM CDT documented as of this encounter Miscellaneous Notes * Telephone Encounter - Jacquelyn Welsh - 03/06/2020 3:52 PM CDT Letter was faxed to [facility] Appeals dept (fax [phone]), note added to cover letter to call or fax results or any further action to take (ph and fax numbers included). Letter was saved to media documented in this encounter Plan of Treatment Scheduled Procedures Name Priority Associated Diagnoses Date/Ti me COLONOSCOPY Encounter for screening for colorectal cancer in high risk patient Family history of rectal cancer documented as of this encounter Visit Diagnoses Not on filedocumented in this encounter Care Teams Air Conditioner Installer Helper Relationship Specialty Start Date End Date Guero Colunga DO PCP - General Internal Medicine 03/22/19 04/18/23 Amber Montesinos, SHAILESH Nsh Teacher Transplant 11/17/19 Jil Duncan MD Consulting Physician Infectious Diseases 01/10/20 documented as of this encounter
--- OUTSIDE RECORDS SUMMARY | 2024-10-28 06:21 | XMS_ITS | Encounter Summary ---
Author Organization [facility] Healthcare Address [address] [place] [address] Care Team Providers Care Contact Center Engineer Name Role Phone Guero Colunga DO Primary Care Provider [phone] Amber Montesinos RN Unavailable [phone] Jil Duncan MD Unavailable [phone] Encounter Details Date Type Department Care Team (Late st Contact Info) Description 03/19/2020 Documentation [facility] Transplant Liver [address] [facility] [address] [phone] [place] [address] Eli Brink Social History Tobacco Use Types Packs/Day Years Used Date Smoking Tobacco: Never Smokeless Tobacco: Never Alcohol Use Standard Drinks/Week Comments Yes 0 (1 standard drink = 0.6 oz pur e alcohol) occassional Sex and Gender Information Value Date Recorded Sex Assigned at Not on file Legal Sex Male 6:28 AM IT ARCHITECTURE ANALYST Gender Identity Not on file Sexual Orientation Straight 08/22/2021 9: 23 AM CDT documented as of this encounter Plan of Treatment Scheduled Procedures Name Priority Associated Diagnoses Date/Ti me COLONOSCOPY Encounter for screening for colorectal cancer in high risk patient Family history of rectal cancer documented as of this encounter Visit Diagnoses Not on filedocumented in this encounter Care Teams Contact Center Engineer Relationship Specialty Start Date End Date Guero Colunga DO PCP - General Internal Medicine 03/22/19 04/18/23 Amber Montesinos, SHAILESH Funeral Pre Arrangement Counselor Transplant 11/17/19 Jil Duncan MD Consulting Physician Infectious Diseases 01/10/20 documented as of this encounter
--- OUTSIDE RECORDS SUMMARY | 2024-10-28 06:21 | XMS_ITS | Encounter Summary ---
Author Organization [facility] Address [address] [place] [address] Phone Care Team Providers Care Tire Beader Maker Name Role Phone Guero Colunga DO Primary Care Provider [phone] Amber Montesinos RN Unavailable [phone] Jil Duncan MD Unavailable [phone] Reason for Visit * Reason Onset Date Comments OPAT 03/19/2020 Encounter Details Date Type Department Care Team (Late st Contact Info) Description 03/19/2020 Telephone [facility] Infectious Diseases [facility] Medicine [address] [place] [address] [place] [address] Ny Griffin OPAT Social History Tobacco Use Types Packs/Day Years Used Date Smoking Tobacco: Never Smokeless Tobacco: Never Alcohol Use Standard Drinks/Week Comments Yes 0 (1 standard drink = 0.6 oz pur e alcohol) occassional Sex and Gender Information Value Date Recorded Sex Assigned at Not on file Legal Sex Male 6:28 AM MARKET MAKER Gender Identity Not on file Sexual Orientation Straight 08/22/2021 9: 23 AM CDT documented as of this encounter Miscellaneous Notes * Telephone Encounter - Ny Griffin - 03/19/2020 11:43 AM CDT Images from the original note were not included. LisandraAIDEN Hennessy RPh Cc: P [facility] Im Id Nurse Pool ?? Yes, continue ganciclovir another week. If CMV level suppressed we will consider switch to PO AIDEN Chadwick RPh Cc: P [facility] Im Id Nurse Pool ?? Lets get a CBC and CMV PCR on Wednesday if possible. Just want to see what his counts do after a few days off neupogen Thanks Kina! ----- Message from Leida Vela RPh sent at 03/19/2020 11:38 AM CDT ----- Regarding: RE: Lab Results Nabila Fry repeat CBC [...] CDT To: Leida Vela RPh, [facility], # Subject: RE: Lab Results Sent an email also but I spoke with Dr. Duncan who wants to continue ganciclovir and start filgrastim-sndz injection 300 mcg daily until Wednesday and recheck. Is this something you can provide and deliver to him over the weekend? ----- Message ----- From: Leida Vela RPh Sent: 03/15/2020 3:36 PM CDT To: Lisandra Auguste NP, [facility], # Subject: RE: Lab Results Labs from [...] level. ----- Message ----- From: Leida Vela [facility] Sent: 03/13/2020 3:20 PM CDT To: Lisandra Auguste NP, [facility] Nurse Pool Subject: Lab Results Beka's labs from 03/12/20 are significant for decreased ANC. WBC=6.3 ANC=1.4 Unn=461 CMV pending It looks like he had [...] on filedocumented in this encounter Care Teams Tire Beader Maker Relationship Specialty Start Date End Date Guero Colunga DO PCP - General Internal Medicine 03/22/19 04/18/23 Amber Montesinos, SHAILESH Four Slide Operator Transplant 11/17/19 Jil Duncan MD Consulting Physician Infectious Diseases 01/10/20 documented as of this encounter
--- OUTSIDE RECORDS SUMMARY | 2024-10-28 06:21 | XMS_ITS | Encounter Summary ---
Author Organization [facility] Address [address] [place] [address] Phone Care Team Providers Care Automobile Brakes Bonder Name Role Phone Guero Colunga DO Primary Care Provider [phone] Amber Montesinos RN Unavailable [phone] Jil Duncan MD Unavailable [phone] Reason for Visit * Reason Onset Date Comments OPAT 03/19/2020 Encounter Details Date Type Department Care Team (Late st Contact Info) Description 03/19/2020 Telephone [facility]ious [facility] Medicine [address] [place] [address] [place] [address] Ny Griffin OPAT Social History Tobacco Use Types Packs/Day Years Used Date Smoking Tobacco: Never Smokeless Tobacco: Never Alcohol Use Standard Drinks/Week Comments Yes 0 (1 standard drink = 0.6 oz pur e alcohol) occassional Sex and Gender Information Value Date Recorded Sex Assigned at Not on file Legal Sex Male 6:28 AM JUMPBASTING FACING BASTER Gender Identity Not on file Sexual Orientation Straight 08/22/2021 9: 23 AM CDT documented as of this encounter Miscellaneous Notes * Telephone Encounter - Lisandra Auguste NP - 03/19/2020 11:57 AM CDT Received neupogen over the weekend. We should get repeat Wednesday or Wednesday to recheck. * Telephone Encounter - Ny Griffin - 03/19/2020 11:38 AM CDT Labs from 03/18/2020 CMP: Alk Phos: 569 (486) AST: 68 (52) ALT: 76 (53) CBC: WBC: 58.7 (6.4) ANC: 52.9 (0.6) documented in this encounter Plan of Treatment Scheduled Procedures Name Priority Associated Diagnoses Date/Ti me COLONOSCOPY Encounter for screening for colorectal cancer in high risk patient Family history of rectal cancer documented as of this encounter Visit Diagnoses Not on filedocumented in this encounter Care Teams Automobile Brakes Bonder Relationship Specialty Start Date End Date Guero Colunga DO PCP - General Internal Medicine 03/22/19 04/18/23 Amber Montesinos, SHAILESH Director Emergency Services Transplant 11/17/19 Jil Duncan MD Consulting Physician Infectious Diseases 01/10/20 documented as of this encounter
--- OUTSIDE RECORDS SUMMARY | 2024-10-28 06:21 | XMS_ITS | Encounter Summary ---
Author Organization [facility] Healthcare Address [address] [place] [address] Care Team Providers Care Roll Scale Worker Name Role Phone Guero Colunga Primary Care Provider [phone] Amber Montesinos RN Unavailable [phone] Jil Duncan MD Unavailable [phone] Encounter Details Date Type Department Care Team (Late st Contact Info) Description 03/18/2020 5:40 PM CDT Lab [address] [address] Social History Tobacco Use Types Packs/Day Years Used Date Smoking Tobacco: Never Smokeless Tobacco: Never Alcohol Use Standard Drinks/Week Comments Yes 0 (1 standard drink = 0.6 oz pur e alcohol) occassional Sex and Gender Information Value Date Recorded Sex Assigned at Not on file Legal Sex Male 6:28 AM GROUP RESERVATIONS COORDINATOR Gender Identity Not on file Sexual Orientation Straight 08/22/2021 9: 23 AM CDT documented as of this encounter Plan of Treatment Scheduled Procedures Name Priority Associated Diagnoses Date/Ti me COLONOSCOPY Encounter for screening for colorectal cancer in high risk patient Family history of rectal cancer documented as of this encounter Procedures Procedure Name Priority Date/Time Associated Diagnosis Comments GLUCOSE, RANDOM (OUTREACH) Routine 03/18/2020 1:00 PM CDT COMPREHENSIVE METABOLIC PANEL WITHOUT GLUCOSE (OUTREACH) Routine 03/18/2020 1:00 PM CDT CBC WITH AUTO DIFFERENTIAL Routine 03/18/2020 1:00 PM CDT MANUAL DIFFERENTIAL Routine 03/18/2020 1 :00 PM CDT documented in this encounter Results * (ABNORMAL) Manual Differential (03/18/2020 1:00 PM CDT) Differential Manual [facility] Cells Counted 111 [facility] Neutrophil abs 52.9(H) 1.7 - 6.5 K/cumm [facility] Lymphocyte abs 3.7(H) 0.8 - 3.3 K/cumm [facility] Monocyte abs 2.1(H) 0.2 - 0.8 K/cumm [facility] Neutrophil pct 90.1 % [facility] Comment: Interpretive Data Percent cell count reference ranges are not reported, since discordance with absolute values may lead to misinterpretation of CBC data. Current Interpretive Data was last revised on 2018. Lymphocyte pct 3.6 % [facility] Comment: Interpretive Data Percent cell count reference ranges are not reported, since discordance with absolute values may lead to misinterpretation of CBC data. Current Interpretive Data was last revised on 2018. Monocyte pct 3.6 % [facility] Comment: Interpretive Data Percent cell count reference ranges are not reported, since discordance with absolute values may lead to misinterpretation of CBC data. Current Interpretive Data was last revised on 2018. Variant lymph pct 2.7 % [facility] Blood specimen (specimen) 03/18/2020 1:00 PM CDT 03/18/2020 6:00 PM CDT us Notinfile Unknown LAB BLOOD ORDERABLES Final Res ult [facility] Department [place] [address] * (ABNORMAL) CBC with auto differential (03/18/2020 1:00 PM CDT) WBC 58.7(C) 3.8 - 9.9 K/cumm [facility] Comment:Critical result call ed to and read back by MARIANNA TAYLOR (PHARM) on 03 18 2020 at 1909 to Nagi Palmer. Hgb 14.7 13.0 - 17.5 g/dL [facility] Hct 42.3 38.9 - 50.3 % [facility] Plt 204 150 - 400 K/cumm [facility] MPV 10.8 9.1 - 12.3 fL [facility] RBC 4.40 4.30 - 5.80 M/cumm [facility] MCV 96.1 81.3 - 96.4 fL [facility] MCH 33.4(H) 27.1 - 33.3 pg [facility] MCHC 34.8 32.3 - 35.7 g/dL [facility] RDW CV 17.2(H) 11.1 - 14.9 % [facility] RDW SD 61.2(H) 35.7 - 48.1 fL [facility] NRBC abs 0.07(H) 0.00 - 0.01 K/cumm [facility] Blood specimen (specimen) 03/18/2020 1:00 PM CDT 03/18/2020 5:29 PM CDT us Notinfile Unknown LAB BLOOD ORDERABLES Final Res ult [facility] Department [place] [address] * Glucose, random (Outreach) (03/18/2020 1:00 PM CDT) [facility] Signature Glucose 81 70 - 199 mg/dL [facility] Comment: Interpretive Data Fasting glucose [...] was last revised 2017. Blood specimen (specimen) 03/18/2020 1:00 PM CDT 03/18/2020 5:29 PM CDT us Notinfile Unknown LAB BLOOD ORDERABLES Final Res ult Performing Organization Address City/[facility]/ZIP Co de Phone Number [facility] [place] [address] * (ABNORMAL) Comprehensive metabolic panel, without glucose (Outreach) (03/18/2020 1:00 PM CDT) Sodium 143 135 - 145 mmol/L [facility] Potassium, pl 3.8 3.3 - 4.9 mmol/L [facility] Chloride 103 97 - 110 mmol/L [facility] CO2 24 22 - 32 mmol/L [facility] Anion gap 16(H) 2 - 15 mmol/L [facility] BUN 8 8 - 25 mg/dL [facility] Creatinine 0.67(L) 0.80 - 1.30 mg/dL [facility] Calcium 9.2 8.5 - 10.3 mg/dL [facility] Protein, pl 6.3(L) 6.5 - 8.5 g/dL [facility] Albumin 4.3 3.5 - 5.0 g/dL [facility] Bilirubin, total 0.4 0.1 - 1.2 mg/dL [facility] Alk phos 569(H) 40 - 130 Units/L [facility] AST 68(H) 10 - 50 Units/L [facility] ALT 76(H) 7 - 55 Units/L [facility] Blood specimen (specimen) 03/18/2020 1:00 PM CDT 03/18/2020 5:29 PM CDT us Notinfile Unknown LAB BLOOD ORDERABLES Final Res ult Performing Organization Address City/[facility]/ZIP Co de Phone Number [facility] Department [place] [address] documented in this encounter Visit Diagnoses Not on filedocumented in this encounter Care Teams Roll Scale Worker Relationship Specialty Start Date End Date Guero Colunga DO PCP - General Internal Medicine 03/22/19 04/18/23 Amber Montesinos, SHAILESH Corn Detasseler Machine Operator Transplant 11/17/19 Jil Duncan MD Consulting Physician Infectious Diseases 01/10/20 documented as of this encounter
--- OUTSIDE RECORDS SUMMARY | 2024-10-28 06:21 | XMS_ITS | Encounter Summary ---
Author Organization [facility] Address [address] [place] [address] Phone Care Team Providers Care Creative Engagement Director Name Role Phone Guero Colunga DO Primary Care Provider [phone] Amber Montesinos RN Unavailable [phone] Jil Duncan MD Unavailable [phone] Encounter Details Date Type Department Care Team (Latest Contact Info) Description 03/11/2020 9:00 AM CDT Telemedicine [facility] Infectious Diseases [address] [place] [address] Advanced Medicine 13th [place] [address] [place] [address] Lisandra Auguste, AIDEN [address] [facility] [address] [place] [address] Cytomegalovirus (CMV) viremia (CMS/HCC) (Primary Dx); On antiviral therapy Social History Tobacco Use Types Packs/Day Years Used Date Smoking Tobacco: Never Smokeless Tobacco: Never Alcohol Use Standard Drinks/Week Comments Yes 0 (1 standard drink = 0.6 oz pur e alcohol) occassional Sex and Gender Information Value Date Recorded Sex Assigned at Not on file 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 male with a history of refractory ITP s/p splenectomy 2012, autoimmune hepatitis s/p orthotopic liver transplant 03/30/09, c/b PTLD (c-Myc, EBV +) s/p R-CHOP x 1 (2016), DA-EPOCH-R x 5 (09/2017-12/2017) with ??IT MTX w/ C3 10/2017, achieving CR in 12/2017, now with persistent quantifiable CMV viremia since 06/2019. ?? His last CMV DNA quantitative PCR on 02/09/2020 had a level of 3.57 logIU/ml. Per outpatient notes,is not thought to have tissue invasive disease. Has tried oral medications but continues to have viremia. Pt was started on ganciclovir 02/15/20. ?? He also recently completed a course of ciprofloxacin and metronidazole for a possible abscess notedon MRI (Needle core bx by [facility]IR 02/02/20 showed no pus but there was necrosis w/ chronic inflammation of hepatic parenchyma, no e/o atypical lymphoid proliferation). LFTs now improved. ?? Today pt reports that he is feeling well. Denies fevers, chills, nausea, vomiting, diarrhea, abdominal pain, change in appetite. Pt says that he did not feel any differently after taking cipro and flagyl. ?? Onc History: diagnosed in 2016 and completed one cycle of R-CHOP then 5 cycles of EPOCH-R in 12/2017 with CR. He had IT-MTX on C3 complicated by intracranial hypotension. A right cervical LN biopsy was notable forEBV+ florid follicular hyperplasia. He underwent a cervical LN bx 10/13/19 which showed which showed an EBV -ve lymph node. Interval History: Telephone visit completed with patient today. He has improved energy levels and appetite. No fevers, chills, night sweats. Did have some diarrhea 2 weeks ago that has now resolved and he has no otherGI complaints. No issues with infusing medication or central line. Organism: CMV Please see consult note dated: 02/16/20 Current antiviral therapy: Ganciclovir 270 mg IV Q12H Antiviral start date: 02/16/20 Compliance with antibiotics: missed 0 doses. The patient has completed 3.5 weeks of antiviral therapy. PICC line/central line issues: none Adverse effects from antibiotic therapy: none Review of systems: Review of Systems Constitutional: Negative for activity [...] ??? Immunocompromised patient (CMS/HCC) ??? Lymphadenopathy ??? 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 Cytomegalovirus (CMV) viremia (CMS/HCC) ??? Fever ??? Elevated LFTs ??? On antiviral therapy Allergies: Patient has no known allergies. Current Outpatient Medications Medication ??? tacrolimus (PROGRAF) 0.5 mg capsule ??? ganciclovir (CYTOVENE) 500 mg injection ??? heparin sod,porcine/0.9 % NaCl (HEPARIN FLUSH IV) ??? sodium chloride 0.9 %, flush, (SALINE FLUSH INJ) ??? tacrolimus (PROGRAF) 0.5 mg capsule ??? tacrolimus (PROGRAF) 0.5 mg capsule No current facility-administered medications for this visit. Lab/Microbiology/Radiology/Diagnostic Review Lab Results Component Value Date WBC 8.5 03/06/2020 HGB 13.6 03/06/2020 HCT 38.9 03/06/2020 MCV 94.9 03/06/2020 LABPLAT 214 03/06/2020 Lab Results Component Value Date GLUCOSE 112 03/06/2020 CALCIUM 9.3 03/06/2020 SODIUM 142 03/06/2020 POTASSIUM 3.7 03/06/2020 CO2 22 03/06/2020 CHLORIDE 103 03/06/2020 BUNSER 10 03/06/2020 CREATININE 0.71 (L) 03/06/2020 Lab Results Component Value Date ALT 53 03/06/2020 AST 64 (H) 03/06/2020 ALKPHOS 373 (H) 03/06/2020 BILITOT 0.5 03/06/2020 02/02/2020 08:40 02/09/2020 12:52 02/16/2020 19:21 02/22/2020 16:30 02/29/2020 14:00 03/06/2020 18:20 CMV DNA IU/mL 513 484 405 293 576 CMV DNA log IU/mL 2.71 2.68 2.61 2.47 2.76 CMV DNA, QN PCR 3.57 (H) CMV DNA Detected (A) Detected (A) Detected (A) Detected (A) Detected (A) Assessment/Plan 25 y.o. male with hx of refractory ITP s/p splenectomy 2012, autoimmune hepatitis s/p orthotopic liver transplant 03/30/2009, c/b PTLD (c-Myc, EBV +) s/p R-CHOP x 1 (2016), DA-EPOCH-R x 5 (09/2017-12/2017) with IT MTX w/ C3 10/2017, achieving CR in 12/2017, now with persistent quantifiable CMV viremia since 06/2019. Started on IV ganciclovir 02/16/20. Telephone visit completed with patient today who is doing well despite continuing to have quantifiable viremia. Will continue IV ganciclovir. Cytomegalovirus (CMV) viremia (CMS/HCC) - Doing well with no complaints today. Tolerating IV ganciclovir without adverse effects. - Continue IV ganciclovir. Will repeat CMV DNA PCR in 2 weeks. If virus suppressed at that time, will switch to PO Valcyte. If not suppressed, will discuss the need for additional testing such as CMVT cell immunity. His viral low is too low for resistance testing. - Discussed with patient the rational for treatment, culture results, risk of recurrent infection, signs/symptoms of recurrent infection, and to contact ID clinic with any questions or concerns On antiviral therapy - Continue weekly CBC and CMP - Continue to monitor for adverse effects of antiviral Follow up: - 4 weeks Visit Diagnosis: 1. Cytomegalovirus (CMV) viremia (CMS/HCC) 2. On antiviral therapy Lisandra Ramirez the Nurse Practitioner, have reviewed this patient with the supervising MD present in the office suite, Dr. Duncan. This was a telemedicine visit with Beka howell which took place via telephone. During the visit, I was located in [facility] and the patient was located at home in [place]. The session started at 0855 and ended at 0907 The patient has been informed that the visit may not be secure and acknowledged the information. I have explained the option of participating in a telephone or video visit during the COVID-19 public health emergency to the patient. After being given an opportunity to ask questions about and discuss this type of visit, the patient verbally consented to proceeding with the telephone/video visit.The patient understands that this service replaces an office visit and they may be billed and/or responsible for any applicable copayments. Lisandra Auguste NP documented in this encounter Miscellaneous Notes * Assessment & Plan Note - Lisandra Auguste NP - 03/12/2020 9:28 AM CDT Associated Problem(s): On antiviral therapy - Continue weekly CBC and CMP - Continue to monitor for adverse effects of antiviral * Assessment & Plan Note - Lisandra Auguste NP - 03/12/2020 9:26 AM CDT Associated Problem(s): Cytomegalovirus (CMV) viremia (CMS/HCC) (HCC) - Doing well with no complaints today. Tolerating IV ganciclovir without adverse effects. - Continue IV ganciclovir. Will repeat CMV DNA PCR in 2 weeks. If virus suppressed at that time, will switch to PO Valcyte. If not suppressed, will discuss the need for additional testing such as CMVT cell immunity. His viral low is too [...] (CMV) viremia (CMS/HCC) (HCC)- Primary Cytomegaloviral disease On antiviral therapy documented in this encounter Care Teams Creative Engagement Director Relationship Specialty Start Date End Date Guero Colunga DO PCP - General Internal Medicine 03/22/19 04/18/23 Amber Montesinos, SHAILESH Automatic Grinding Machine Operator Transplant 11/17/19 Jil Duncan MD Consulting Physician Infectious Diseases 01/10/20 documented as of this encounter
--- OUTSIDE RECORDS SUMMARY | 2024-10-28 06:21 | XMS_ITS | Encounter Summary ---
Author Organization [facility] Home Care Servic es Address [address] [place] [address] Phone Care Team Providers Care Sports Management Intern Name Role Phone Guero Colunga Primary Care Provider [phone] Amber Montesinos RN Unavailable [phone] Jil Duncan MD Unavailable [phone] Reason for Visit * Auth/Cert Specialty Diagnoses / Procedures Referred By Contac t Referred To Contact Referral ID Status Reason Start Date Expiration Date Visits Re quested Visits Authorized [id number] 1 1 Encounter Details Date Type Department Care Team (Late st Contact Info) Description 03/14/2020 Home Care Visit [facility] [address] [place] [address] Juanita Martin RN TRAVEL SCREENING CASE COMMUNICATION Social History Tobacco Use Types Packs/Day Years Used Date Smoking Tobacco: Never Smokeless Tobacco: Never Alcohol Use Standard Drinks/Week Comments Yes 0 (1 standard drink = 0.6 oz pur e alcohol) occassional Sex and Gender Information Value Date Recorded Sex Assigned at Not on file 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 Gender Identity Not on file Sexual Orientation Straight 08/22/2021 9: 23 AM CDT documented as of this encounter Plan of Treatment Scheduled Procedures Name Priority Associated Diagnoses Date/Ti me COLONOSCOPY Encounter for screening for colorectal cancer in high risk patient Family history of rectal cancer documented as of this encounter Visit Diagnoses Not on filedocumented in this encounter Care Teams Sports Management Intern Relationship Specialty Start Date End Date Guero Colunga DO PCP - General Internal Medicine 03/22/19 04/18/23 Amber Montesinos, RN Rate Engineer Transplant 11/17/19 Jil Duncan MD Consulting Physician Infectious Diseases 01/10/20 documented as of this encounter
--- OUTSIDE RECORDS SUMMARY | 2024-10-28 06:21 | XMS_ITS | Encounter Summary ---
Author Organization [facility] Healthcare Address [address] [place] [address] Care Team Providers Care Coiler Name Role Phone Guero Colunga DO Primary Care Provider [phone] Amber Montesinos RN Unavailable [phone] Jil Duncan MD Unavailable [phone] Reason for Referral * Diagnostic Imaging (Routine) - Closed Specialty Diagnoses / Procedures Referred By Contac t Referred To Contact Radiology Diagnoses History of liver transplant (CMS/HCC) (HCC) Elevated liver enzymes Procedures CT Abdomen [address] Abdomen 3 Phase Theodore Gresham MD Phone: tel: fax: [address] [address] Referral ID Status Reason Start Date Expiration Date Visits Re quested Visits Authorized [id number] Closed 03/19/2020 05/03/2020 1 1 Encounter Details Date Type Department Care Team (Late st Contact Info) Description 03/19/2020 Telephone [facility] Transplant Liver [address] [address] [phone] [place] [address] Amber Montesinos RN Social History Tobacco Use Types Packs/Day Years Used Date Smoking Tobacco: Never Smokeless Tobacco: Never Alcohol Use Standard Drinks/Week Comments Yes 0 (1 standard drink = 0.6 oz pur e alcohol) occassional Sex and Gender Information Value Date Recorded Sex Assigned at Not on file 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 Pt now scheduled for 04/05/2020. Letter emailedto pt. * Telephone Encounter - Amber Vargas RN - 03/19/2020 12:58 PM CDT Reviewed MRI appeal denial with Dr. Gresham. He would like to have patient scheduled for a triplephase abdominal CT in 2-[address]- order is CT abd 3 phase with contrast for liver multiphase. Will ask Victorina to call to schedule (patient prefers weekend if possible d/t work schedule, could you also cancel MRI for 03/23?) and send info to pre cert Are there any changes to insurance? If there is a change, please indicate the new insurance details below. If it is unchanged to what is already in [facility], simply warren each with N/A Primary Insurance: Patient ID#: Group#: Insurance Phone#: Radiology Test Request Details Need pre-cert for: CT Abdomen 3 Phase Ordering physician: Theodore Gresham CPT Code: 38792 CPT Code description:CT Abdomen 3 Phase ICD-10 Code: Z94.4; R74.8 ICD-10 Code description: history of liver transplant, elevated liver enzymes Patient is having test due to: f/u imaging for lesion found on MRCP 2020 Complications patient is having: f/u imaging for lesion found on MRCP 2020 Testing is to rule out the following: f/u imaging for lesion found on MRCP 2020 Facility/Location test will be done: [facility] Date test will be done: 2-3 weeks documented in this encounter Plan of Treatment [...] lesions. Electronically signed by: Swapna Godoy M.D. us Theodore Gresham MD IMG CT PROCEDURES Final Re sult documented in this encounter Visit Diagnoses Diagnosis History of liver transplant (CMS/HCC) (HCC)- Primary Liver replaced by transplant Elevated liver enzymes Other nonspecific abnormal serum enzyme levels Liver abscess Abscess of liver History of liver transplant (CMS/HCC) (HCC) Liver replaced by transplant Elevated liver enzymes Other nonspecific abnormal serum enzyme levels documented in this encounter Care Teams Coiler Relationship Specialty Start Date End Date Guero Colunga DO PCP - General Internal Medicine 03/22/19 04/18/23 Amber Montesinos RN Cylinder Loader Transplant 11/17/19 Jil Duncan MD Consulting Physician Infectious Diseases 01/10/20 documented as of this encounter
--- OUTSIDE RECORDS SUMMARY | 2024-10-28 06:21 | XMS_ITS | Encounter Summary ---
Author Organization [facility] Healthcare Address [address] [place] [address] Care Team Providers Care Paper Baler Name Role Phone Guero Colunga Primary Care Provider [phone] Amber Montesinos RN Unavailable [phone] Jil Duncan MD Unavailable [phone] Encounter Details Date Type Department Care Team (Late st Contact Info) Description 03/19/2020 Telephone [facility] Transplant Liver [address] [facility] [phone] [place], [place] [id number] Amber Montesinos RN Social History Tobacco Use Types Packs/Day Years Used Date Smoking Tobacco: Never Smokeless Tobacco: Never Alcohol Use Standard Drinks/Week Comments Yes 0 (1 standard drink = 0.6 oz pur e alcohol) occassional Sex and Gender Information Value Date Recorded Sex Assigned at Not on file 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 Reviewed that MRI on Wednesday was cancelled because ofinsurance. CT of abd ordered for April 05, 2020 at 7:00am. Reviewed that patient will have appointment letter sent to him. Provided him with radiology scheduling number in case he cannot make Wednesday morning apt. Reviewed that patient can call radiology scheduling if he needs to change the appointmenttime d/t work schedule. documented in this encounter Plan of Treatment Scheduled Procedures Name Priority Associated Diagnoses Date/Ti me COLONOSCOPY Encounter for screening for colorectal cancer in high risk patient Family history of rectal cancer documented as of this encounter Visit Diagnoses Not on filedocumented in this encounter Care Teams Paper Baler Relationship Specialty Start Date End Date Guero Colunga DO PCP - General Internal Medicine 03/22/19 04/18/23 Amber Montesinos, RN Oncology Physician Transplant 11/17/19 Jil Duncan MD Consulting Physician Infectious Diseases 01/10/20 documented as of this encounter
--- OUTSIDE RECORDS SUMMARY | 2024-10-28 06:21 | XMS_ITS | Encounter Summary ---
Author Organization [facility] Address [address] [place] [address] Phone Care Team Providers Care Brace End Mainspring Former Name Role Phone Guero Colunga DO Primary Care Provider [phone] Amber Montesinos RN Unavailable [phone] Jil Duncan MD Unavailable [phone] Encounter Details Date Type Department Care Team (Latest Contact Info) Description 03/13/2020 7:00 AM CDT Clinical Support [facility] Oncology 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 Gender Identity Not on file Sexual Orientation [...] Diagnosis Comments CBC WITH AUTO DIFFERENTIAL Routine 03/13/2020 7:15 AM CDT 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) MANUAL DIFFERENTIAL Routine 03/13/2020 7 :15 AM CDT 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) LACTATE DEHYDROGENASE Routine 03/13/2020 7:15 AM CDT 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) COMPREHENSIVE METABOLIC PANEL Routine 03/13/2020 7:15 AM CDT 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) TACROLIMUS LEVEL, TROUGH Routine 03/13/2020 7:07 AM CDT History of liver transplant (CMS/HCC) documented in this encounter Results * (ABNORMAL) Manual Differential (03/13/2020 7:15 AM CDT) Cells Counted 100 [facility] Neutrophil abs 1.0(L) 1.7 - 6.5 K/cumm [facility] Imm gran abs 0.0 0.0 - 0.1 K/cumm [facility] Lymphocyte abs 2.9 0.8 - 3.3 K/cumm [facility] Monocyte abs 2.5(H) 0.2 - 0.8 K/cumm [facility] Eosinophil abs 0.1 0.0 - 0.5 K/cumm [facility] Neutrophil pct 12.0 % [facility] Lymphocyte pct 45.0 % [facility] Monocyte pct 39.0 % [facility] Eosinophil pct 1.0 % [facility] Band Neutrophil pct 3.0 0.0 - 6.0 % [facility] Metamyelocyte pct 0.0 0.0 - 0.0 % [facility] Myelocyte pct 0.0 0.0 - 0.0 % [facility] Promyelocyte pct 0.0 0.0 - 0.0 % [facility] Variant lymph pct 0.0 0.0 - 0.0 % [facility] Anisocytosis Slight(A) [facility] Teardrop cells 3-7/HPF(A) [facility] Montero-Coats bodies Present(A) [facility] Platelet estimate Adequate [facility] Blood specimen (specimen) 03/13/2020 7:15 AM CDT 03/13/2020 7:18 AM CDT Anita Gillespie MD LAB BLOOD ORDERABLES Final Result Performing Organization Address City/[facility]/ZIP Co de Phone Number [facility] [place] [address] * (ABNORMAL) Lactate dehydrogenase (LD) (03/13/2020 7:15 AM CDT) Pathologist [facility] Lactate dehydrogenase (LDH) 273(H) 100 - 250 Units/L [facility] Comment:Testing performed by : [facility], [address] [place] [phone] Blood specimen (specimen) 03/13/2020 7:15 AM CDT 03/13/2020 7:19 AM CDT us Anita Gillespie MD LAB BLOOD ORDERABLES Final Result Performing Organization Address [facility] Co de Phone Number [facility] Department [place] [address] * (ABNORMAL) Comprehensive metabolic panel (03/13/2020 7:15 AM CDT) Pathologist [facility] Sodium 140 135 - 145 mmol/L [facility] Comment:Testing performed by : [facility], [address] [place] [phone] Potassium, pl 4.3 3.3 - 4.9 mmol/L [facility] Comment:Testing performed by : [facility], [address] [place] [phone] Chloride 105 97 - 110 mmol/L [facility] Comment:Testing performed by : [facility], [address] [place] [phone] CO2 26 22 - 32 mmol/L [facility] Comment:Testing performed by : [facility], [address] [place] [phone] Anion gap 9 2 - 15 mmol/L [facility] Comment:Testing performed by : [facility], [address] [place] [phone] BUN 9 8 - 25 mg/dL [facility] Comment:Testing performed by : [facility], [address] [place] [phone] Creatinine 0.72(L) 0.80 - 1.30 mg/dL [facility] Comment:Testing performed by : [facility], [address] [place] [phone] Glucose 104 70 - 199 mg/dL [facility] Comment: [...] was last revised 2017. Testing performed by: [facility], [address] [place] [phone] Calcium 9.2 8.5 - 10.3 mg/dL [facility] Comment:Testing performed by : [facility], [address] [place] [phone] Bilirubin, total 0.5 0.1 - 1.2 mg/dL [facility] Comment:Testing performed by : [facility], [address] [place] [phone] Protein, pl 6.2(L) 6.5 - 8.5 g/dL [facility] Comment:Testing performed by : [facility], [address] [place] [phone] Albumin 4.3 3.5 - 5.0 g/dL [facility] Comment:Testing performed by : [facility], [address] [place] [phone] Alk phos 486(H) 40 - 130 Units/L [facility] Comment:Testing performed by : [facility], [address] [place] [phone] ALT 53 7 - 55 Units/L [facility] Comment:Testing performed by : [facility], [address] [place] [phone] AST 52(H) 10 - 50 Units/L [facility] Comment:Testing performed by : [facility], [address] [place] [phone] Blood specimen (specimen) 03/13/2020 7:15 AM CDT 03/13/2020 7:19 AM CDT us Anita Gillespie MD LAB BLOOD ORDERABLES Final Result Performing Organization Address City/State/[facility] Co de Phone Number [facility] One [facility] [place] [address] * (ABNORMAL) CBC with auto differential (03/13/2020 7:15 AM CDT) WBC 6.5 3.8 - 9.8 K/cumm [facility] Comment:Testing performed by : [facility], [address] [place] [phone] Hgb 15.1 13.8 - 17.2 g/dL [facility] Comment:Testing performed by : [facility], [address] [place] [phone] Hct 44.4 40.7 - 50.3 % [facility] Comment:Testing performed by : [address] [phone] Plt 222 140 - 440 K/cumm [facility] Comment:Testing performed by : [address] [phone] MPV 7.5 6.8 - 10.4 fL [facility] Comment:Testing performed by : [facility], [address] [place] [phone] RBC 4.49(L) 4.50 - 5.70 M/cumm [facility] Comment:Testing performed by : [facility], [address] [place] [phone] MCV 98.9(H) 80.0 - 97.6 fL [facility] Comment:Testing performed by : [facility], [address] [place] [phone] MCH 33.7 26.7 - 33.7 pg [facility] Comment:Testing performed by : [facility], [address] [place] [phone] MCHC 34.1 32.7 - 35.5 g/dL [facility] Comment:Testing performed by : [facility], [address] [place] [phone] RDW CV 16.2(H) 11.8 - 14.6 % [facility] Comment:Testing performed by : [facility], [address] [place] [phone] NRBC abs 0.00 0.00 - 0.01 K/cumm [facility] Comment:Testing performed by : [facility], [address] [place] [phone] Blood specimen (specimen) 03/13/2020 7:15 AM CDT 03/13/2020 7:18 AM CDT Anita Gillespie MD LAB BLOOD ORDERABLES Final Result Performing Organization Address City/State/[facility] Co de Phone Number [facility] One [facility] [place] [address] * Tacrolimus level trough (03/13/2020 7:07 AM CDT) [facility] Tacrolimus trough 4.8 ng/mL [facility] Comment: Interpretive Data Testing performed by liquid chromatography-tandem mass spectrometry. ??Therapeutic concentrations vary depending on type of transplanted organ and time elapsed since transplant. ??Typical trough concentrations range from 5-15 ng/mL. ??This test was developed and its performance characteristics determined by the [facility] consistent with CLIA requirements. ??This test has not been cleared or approved by the [place] Food and Drug administration. ??Current interpretive data last reviewed 2020. Blood specimen (specimen) 03/13/2020 7:07 AM CDT 03/13/2020 7:48 AM CDT Theodore Gresham MD LAB BLOOD ORDERABLES Final Result Performing Organization Address City/State/[facility] Co de Phone Number [facility] One [facility] [place] [address] documented in this encounter Visit Diagnoses Diagnosis 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) History of liver transplant (CMS/HCC) (HCC) Liver replaced by transplant documented in this encounter Orders Appointment Requests Count Last Ordered Date Fi rst Ordered Date ONCBCN LAB APPOINTMENT 1 03/13/2020 documented in this encounter Care Teams Brace End Mainspring Former Relationship Specialty Start Date End Date Guero Colunga DO PCP - General Internal Medicine 03/22/19 04/18/23 Amber Montesinos, RN Lead Informatica Developer Transplant 11/17/19 Jil Duncan MD Consulting Physician Infectious Diseases 01/10/20 documented as of this encounter
--- OUTSIDE RECORDS SUMMARY | 2024-10-28 06:21 | XMS_ITS | Encounter Summary ---
Author Organization [facility] Address [address] [place] [address] Phone Care Team Providers Care Excavation Laborer Name Role Phone Guero Colunga DO Primary Care Provider [phone] Amber Montesinos RN Unavailable [phone] Jil Duncan MD Unavailable [phone] Reason for Visit * Reason Onset Date Comments OPAT 03/14/2020 Encounter Details Date Type Department Care Team (Late st Contact Info) Description 03/14/2020 Telephone 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 WBC=6.3 ANC=1.4 Myg=101 CMV pending It looks like he had [...] on filedocumented in this encounter Care Teams Excavation Laborer Relationship Specialty Start Date End Date Guero Colunga DO PCP - General Internal Medicine 03/22/19 04/18/23 Amber Montesinos, SHAILESH Flat Screen Worker Transplant 11/17/19 Jil Duncan MD Consulting Physician Infectious Diseases 01/10/20 documented as of this encounter
--- OUTSIDE RECORDS SUMMARY | 2024-10-28 06:21 | XMS_ITS | Encounter Summary ---
Author Organization [facility] Address [address] [place] [address] Care Team Providers Care Ultrasonic Cleaner Name Role Phone Guero Colunga DO Primary Care Provider [phone] Amber Montesinos RN Unavailable [phone] Jil Duncan MD Unavailable [phone] Encounter Details Date Type Department Care Team (Late st Contact Info) Description 03/08/2020 Telephone [facility] Transplant Liver [address] [facility] [address] [phone] [place], [place] [phone] Amber Montesinos RN Social History Tobacco Use Types Packs/Day Years Used Date Smoking Tobacco: Never Smokeless Tobacco: Never Alcohol Use Standard Drinks/Week Comments Yes 0 (1 standard drink = 0.6 oz pur e alcohol) occassional Sex and Gender Information Value Date Recorded Sex Assigned at Not on file Legal Sex Male 6:28 AM INSPECTOR ELEVATORS Gender Identity Not on file Sexual Orientation Straight 08/22/2021 9: 23 AM CDT documented as of this encounter Miscellaneous Notes * Telephone Encounter - Amber Vargas RN - 03/08/2020 1:24 PM CDT Reviewed labs with Dr. Gresham and Dr. Duncan. Patient scheduled for clinic visit on 03/11. Plan to continue ganciclovir for possibly another 2-3 weeks before returning to PO therapy. Called mother to request patient have tac trough Wednesday before apt with Dr. Gillespie documented in this encounter Plan of Treatment Scheduled Procedures Name Priority Associated Diagnoses Date/Ti me COLONOSCOPY Encounter for screening for colorectal cancer in high risk patient Family history of rectal cancer documented as of this encounter Results * Tacrolimus level trough (03/13/2020 7:07 AM CDT) Tacrolimus trough 4.8 ng/mL [facility] Comment: Interpretive Data Testing performed by liquid chromatography-tandem mass spectrometry. ??Therapeutic concentrations vary depending on type of transplanted organ and time elapsed since transplant. ??Typical trough concentrations range from 5-15 ng/mL. ??This test was developed and its performance characteristics determined by the [facility] consistent with CLIA requirements. ??This test has not been cleared or approved by the [place] Food and Drug administration. ??Current interpretive data last reviewed 2020. Blood specimen (specimen) 03/13/2020 7:07 AM CDT 03/13/2020 7:48 AM CDT us Theodore Gresham MD LAB BLOOD ORDERABLES Final Result [facility] [place] [address] documented in this encounter Visit Diagnoses Diagnosis History of liver transplant (CMS/HCC) (HCC)- Primary Liver replaced by transplant documented in this encounter Care Teams Ultrasonic Cleaner Relationship Specialty Start Date End Date Guero Colunga DO PCP - General Internal Medicine 03/22/19 04/18/23 Amber Montesinos, SHAILESH Obstetrics Gyn Transplant 11/17/19 Jil Duncan MD Consulting Physician Infectious Diseases 01/10/20 documented as of this encounter
--- OUTSIDE RECORDS SUMMARY | 2024-10-28 06:21 | XMS_ITS | Encounter Summary ---
Author Organization [facility] Address [address] [place] [address] Phone Care Team Providers Care Oil Pump Station Operator Chief Name Role Phone Guero Colunga DO Primary Care Provider [phone] Amber Montesinos RN Unavailable [phone] Jil Duncan MD Unavailable [phone] Encounter Details Date Type Department Care Team (Late st Contact Info) Description 03/13/2020 7:45 AM CDT Office Visit [facility] [address] [facility] Advanced Medicine 7th [place] [address] [place] [address] Anita Gillespie MD [address] [facility] [address] [place] [address] 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) Social History Tobacco Use Types Packs/Day Years Used Date Smoking Tobacco: Never Smokeless Tobacco: Never Alcohol Use Standard Drinks/Week Comments Yes 0 (1 standard drink = 0.6 oz pur e alcohol) occassional Sex and Gender Information Value Date Recorded Sex Assigned at Not on file 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 Gender Identity Not on file Sexual Orientation Straight 08/22/2021 9: 23 AM CDT documented as of this encounter Last Filed Vital Signs Vital Sign Reading Time Taken Comments Blood Pressure 97/65 03/13/2020 7:23 AM CDT Pulse 68 03/13/2020 7:23 AM CDT Temperature 36.6 ??C (97.9 ??F) 03/13/2020 7:23 AM CD T Respiratory Rate 18 03/13/2020 7:21 AM CDT Oxygen Saturation 98% 03/13/2020 7:23 AM CDT Inhaled Oxygen Concentration - - Weight 58.2 kg (128 lb 6.4 oz) 03/13/2020 7:21 A M CDT Height - - Body Mass Index 19.52 02/18/2020 11:59 AM CDT documented in this encounter Progress Notes * Nancy Butler, QUALITY CONTROLLER - 03/13/2020 12:00 AM CDT PATIENT NAME: ADI NICHOLS : 1995 JUSTEN: 03/13/2020 DIAGNOSES: 1. 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 2. 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 3. Bilateral pulmonary emboli diagnosed on 10/19/2017. TREATMENT AND DISEASE COURSE: 1. R-CHOP x 1, 08/25/2017. 2. Dose adjusted EPOCH-R x 5, 09/15/2017 - 12/2017. Post-C2 PET: AR (5PS = 4), CR post C5 3. IT chemotherapy (MTX), only with cycle 3 on 10/06/2017, complicated by intracranial hypotension. 4. R cervical LNBx, 01/06/19, EBV+ florid follicular hyperplasia, c/w possible early PTLD. INTERVAL HISTORY: Mr. Nichols returns to the [facility] for continued follow-up of his PTLD. We last saw himon 01/17/2020. Since that time, he has had a difficult course. On January 30, he had an MRCP that showed concern for an abscess on his liver. He was started on Cipro and Flagyl and referred to [facility] for abiopsy. The biopsy showed necrosis surrounded by organizational changes and chronic inflammation involving the hepatic parenchyma, negative for fungal organisms and acid-fast bacilli, negative for involvement by atypical lymphoid proliferation or any other malignancy. He continued the course of antibiotics, for a total of 21 days. He then was admitted on February 14 after his labs showed a low-level CMV viremia, despite oral therapy. He received IV ganciclovir. A PICC was placed, and he was discharged on February 16. He also had an MRI that day that showed a slight decrease in the size of the rim-enhancing lesion, with near resolution of the parenchymal enhancement. The patient continues to follow with ID. They are planning to redraw his CMV level on March 20 and possibly change him back to p.o. treatment, if his CMV level is not detectable. He recently returned back to work and has had a goodenergy level. He is not exposed to many people at work and has been staying safe during COVID. He denies fevers, infections, new adenopathy, shortness of breath, chest pain, abdominal pain or bloating, changes to bowel or bladder habits, or lower extremity edema. PHYSICAL EXAMINATION: Performance Status: 0. General: This is a well-appearing gentleman, resting comfortably. Vital Signs: Weight 58.2 kg, blood pressure 97/65, pulse 68, respirations 18, temperature 36.6, oxygen saturation 98% on room air. Lungs: Clear to auscultation. Heart: Regular rate and rhythm. Nodes: A 1 cm left jugulodigastric, and just posterior to the jugulodigastric, there is another 1 cm node. At the low posterior cervical lymph node, there is a chain of about 4 or 5 lymph nodes, eachmeasuring subcentimeter. On his right cervical chain, he has about 3 lymph nodes, each measuring subcentimeter. His right jugulodigastric is measuring 1.5 cm, a 2 cm left axilla lymph node, a 1.5 right axilla lymph node, and several 1 cm left inguinal lymph nodes and right inguinal lymph nodes. Abdomen: Soft, nontender. No hepatosplenomegaly. Extremities: No edema. Skin: Without rashes or lesions. LABORATORY DATA: WBC 6.5, hemoglobin 15.1, platelets 222. Chemistry is remarkable for an alk phos of 486 and AST of 52. LDH is 273. IMPRESSION AND PLAN: 1. History of c-Myc positive posttransplant lymphoproliferative disorder, EBV positive, stage EMY, IPI 3 (stage, LDH, extranodal site). This is a 25-year-old gentleman who is now over 2 years status post 5 cycles of dose-adjusted EPOCH-R. He continues to have diffuse lymphadenopathy; however, this has been unchanged over the last 3 months. He has had multiple biopsies in the past that show follicular hyperplasia. We are holding off on any PET scan at this time, as we do not feel that his lymphadenopathy is related to PTLD. We will plan to see him back in 3 months. The patient knows to call inthe interim with any questions or concerns. 2. History of liver transplant. His LFTs are still elevated in the office today. He has a repeat MRI of his liver next week. We will follow these reports. 3. Distant history of pulmonary embolism. The patient is no longer on anticoagulation. 4. Positive CMV PCR. This is the patient's fifth week on IV ganciclovir. He will have a CMV level drawn on March 20. If this is undetectable, ID is planning to switch him back to oral valganciclovir. This patient was also seen by Dr. Anita Gillespie who helped formulate the plan of care. ELECTRONICALLY SIGNED - 03/14/2020 12:50 PM Nancy Butler NP Nurse Practitioner In collaboration with Anita Gillespie M.D. My signature confirms I have reviewed the note and agree with the assessment and plan of Nancy Butler NP ELECTRONICALLY SIGNED - 03/18/2020 12:56 PM Anita Gillespie M.D. manager speech [facility] Chair in Medical Oncology AP/NB/gayle cc: GUERO COLUNGA DO [address] [place] [address] / LENO AGUSTIN MD [address] [facility] Floor [address], [place] [address] LINDA CHAPA MD [address] [address] [address] [place] [address] / documented in this encounter Miscellaneous Notes * Addendum Note - Marycruz Gleason - 03/13/2020 7:45 AM CDTAddended by: MARYCRUZ GLEASON on: 06/12/2020 07:37 AM Modules accepted: Orders documented in this encounter Plan of Treatment Scheduled Orders Name Type Priority Associated Diagnoses Orde r Schedule CBC with auto differential Lab Routine 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) Expected: 03/13/2020 (Approximate), Expires: 03/07/2021 Comprehensive metabolic panel Lab Routine 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) Expected: 03/13/2020 (Approximate), Expires: 03/07/2021 Lactate dehydrogenase (LD) Lab Routine 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) Expected: 03/13/2020 (Approximate), Expires: 03/07/2021 CBC with auto differential Lab Routine 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) Expected: 06/12/2020 (Approximate), Expires: 03/07/2021 Comprehensive metabolic panel Lab Routine 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) Expected: 06/12/2020 (Approximate), Expires: 03/07/2021 Scheduled Procedures Name Priority Associated Diagnoses Date/Ti me COLONOSCOPY Encounter for screening for colorectal cancer in high risk patient Family history of rectal cancer documented as of this encounter Results * Lactate dehydrogenase (LD) (06/12/2020 7:50 AM CDT) Lactate dehydrogenase (LDH) 225 100 - 250 Units/L [facility] Comment:Testing performed by : [facility], [address] [place] [phone] Blood specimen (specimen) 06/12/2020 7:50 AM CDT 06/12/2020 7:51 AM CDT Nancy Butler NP LAB BLOOD ORDERABLES Final Result [facility] One [facility] [place] [address] documented in this encounter Visit Diagnoses Diagnosis 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 documented in this encounter Orders Appointment Requests Count Last Ordered Date Fi rst Ordered Date ONCBCN CLINIC APPOINTMENT REQUEST 2 020 03/13/2020 ONCBCN LAB APPOINTMENT 1 06/12/2020 documented in this encounter Care Teams Oil Pump Station Operator Chief Relationship Specialty Start Date End Date Guero Colunga DO PCP - General Internal Medicine 03/22/19 04/18/23 Amber Montesinos, SHAILESH Closing Agent Transplant 11/17/19 Jil Duncan MD Consulting Physician Infectious Diseases 01/10/20 documented as of this encounter
--- OUTSIDE RECORDS SUMMARY | 2024-10-28 06:21 | XMS_ITS | Encounter Summary ---
Author Organization [facility] es Address [address] [place] [address] Phone Care Team Providers Care Airway Traffic Controller Name Role Phone Guero Colunga Primary Care Provider [phone] Amber Montesinos RN Unavailable [phone] Jil Duncan MD Unavailable [phone] Encounter Details Date Type Department Care Team (Late st Contact Info) Description 03/16/2020 Orders Only [facility] [address] [place] [address] Gage Noel, [facility] Social History Tobacco Use Types Packs/Day Years Used Date Smoking Tobacco: Never Smokeless Tobacco: Never Alcohol Use Standard Drinks/Week Comments Yes 0 (1 standard drink = 0.6 oz pur e alcohol) occassional Sex and Gender Information Value Date Recorded Sex Assigned at Not on file Legal Sex Male 6:28 AM BELLY PACKER Gender Identity Not on file Sexual Orientation Straight 08/22/2021 9: 23 AM CDT documented as of this encounter Ordered Prescriptions Prescription Sig Dispense Quantity Refills Last Filled Start Date End Date filgrastim (NEUPOGEN) 300 mcg/0.5 mL syringe Inject 0.5 mL (300 mcg total) under the skin daily for 3 days 1.5 mL 03/16/2020 03/19/2020 documented in this encounter Plan of Treatment Scheduled Procedures Name Priority Associated Diagnoses Date/Ti me COLONOSCOPY Encounter for screening for colorectal cancer in high risk patient Family history of rectal cancer documented as of this encounter Visit Diagnoses Not on filedocumented in this encounter Care Teams Airway Traffic Controller Relationship Specialty Start Date End Date Guero Colunga DO PCP - General Internal Medicine 03/22/19 04/18/23 Amber Montesinos RN Network Cable Installer Transplant 11/17/19 Jil Duncan MD Consulting Physician Infectious Diseases 01/10/20 documented as of this encounter
--- OUTSIDE RECORDS SUMMARY | 2024-10-28 06:21 | XMS_ITS | Encounter Summary ---
Author Organization [facility] Healthcare Address [address] [place] [address] Care Team Providers Care Dye Can Operator Name Role Phone Guero Colunga Primary Care Provider [phone] Amber Montesinos RN Unavailable [phone] Jil Duncan MD Unavailable [phone] Encounter Details Date Type Department Care Team (Late st Contact Info) Description 03/15/2020 Telephone [facility] Transplant Liver [address] [facility] [phone] [place] [address] Eli Brink Social History Tobacco Use Types Packs/Day Years Used Date Smoking Tobacco: Never Smokeless Tobacco: Never Alcohol Use Standard Drinks/Week Comments Yes 0 (1 standard drink = 0.6 oz pur e alcohol) occassional Sex and Gender Information Value Date Recorded Sex Assigned at Not on file Legal Sex Male 6:28 AM BIT TRIPOLER Gender Identity Not on file Sexual Orientation Straight 08/22/2021 9: 23 AM CDT documented as of this encounter Miscellaneous Notes * Telephone Encounter - Amber Vargas RN - 03/15/2020 2:55 PM CDT Returned call to mom. Mother states that patient is continuing to do well. Reviewed that patient had MRI scheduled on Wednesday of next week but patient rescheduled it to Wednesday so that he would not miss work. Discussed issue with insurance company. Let mother know I would review with Dr. Gresham and get back to her. Spoke with Dr. Gresham who would like to try and proceed with finding a non hospital based imaging center. Will follow up on Wednesday. * Telephone Encounter - Eli Brink - 03/15/2020 2:06 PM CDT Pt mom, Brooklynn left a vm at 2:01 pm returning your call. Brooklynn can be reached at [phone] documented in this encounter Plan of Treatment Scheduled Procedures Name Priority Associated Diagnoses Date/Ti me COLONOSCOPY Encounter for screening for colorectal cancer in high risk patient Family history of rectal cancer documented as of this encounter Visit Diagnoses Not on filedocumented in this encounter Care Teams Dye Can Operator Relationship Specialty Start Date End Date Guero Colunga DO PCP - General Internal Medicine 03/22/19 04/18/23 Amber Montesinos, RN Bank Worker Transplant 11/17/19 Jil Duncan MD Consulting Physician Infectious Diseases 01/10/20 documented as of this encounter
--- OUTSIDE RECORDS SUMMARY | 2024-10-28 06:21 | XMS_ITS | Encounter Summary ---
Author Organization [facility] Home Care Serv[facility] es Address [address] [place] [address] Phone Care Team Providers Care Door Maker Name Role Phone Guero Colunga Primary Care Provider [phone] Amber Montesinos RN Unavailable [phone] Jil Duncan MD Unavailable [phone] Encounter Details Date Type Department Care Team (Late st Contact Info) Description 03/19/2020 Orders Only [facility] [address] [place] [address] Leida Obrien RPh Social History Tobacco Use Types Packs/Day Years Used Date Smoking Tobacco: Never Smokeless Tobacco: Never Alcohol Use Standard Drinks/Week Comments Yes 0 (1 standard drink = 0.6 oz pur e alcohol) occassional Sex and Gender Information Value Date Recorded Sex Assigned at Not on file Legal Sex Male 6:28 AM GRAPHITE MILL OPERATOR Gender Identity Not on file Sexual Orientation Straight 08/22/2021 9: 23 AM CDT documented as of this encounter Progress Notes * Leida Vela RPh - 03/19/2020 4:12 PM CDT TORB: Lisandra José NP/Dr. Duncan/Radhames Vela PharmD Okay for extra SNV to draw CBC w diff and CMV PCR on [place] 5/22/20 documented in this encounter Plan of Treatment Scheduled Procedures Name Priority Associated Diagnoses Date/Ti me COLONOSCOPY Encounter for screening for colorectal cancer in high risk patient Family history of rectal cancer documented as of this encounter Visit Diagnoses Not on filedocumented in this encounter Care Teams Door Maker Relationship Specialty Start Date End Date Guero Colunga DO PCP - General Internal Medicine 03/22/19 04/18/23 Amber Montesinos, RN Spa Associate Transplant 11/17/19 Jil Duncan MD Consulting Physician Infectious Diseases 01/10/20 documented as of this encounter
--- OUTSIDE RECORDS SUMMARY | 2024-10-28 06:22 | XMS_ITS | Encounter Summary ---
Author Organization [facility] Healthcare Address [address] [place] [address] Care Team Providers Care Warehouse Assistant Name Role Phone Guero Colunga DO Primary Care Provider [phone] Amber Montesinos RN Unavailable [phone] Jil Duncan MD Unavailable [phone] Encounter Details Date Type Department Care Team (Late st Contact Info) Description 02/19/[address] [facility] Transplant Liver [address] [facility] [phone] [place] [address] Amber Montesinos RN Social History Tobacco Use Types Packs/Day Years Used Date Smoking Tobacco: Never Smokeless Tobacco: Never Alcohol Use Standard Drinks/Week Comments Yes 0 (1 standard drink = 0.6 oz pur e alcohol) occassional Sex and Gender Information Value Date Recorded Sex Assigned at Not on file Legal Sex Male 6:28 AM BRIM IRONER HAND Gender Identity Not on file Sexual Orientation Straight 08/22/2021 9: 23 AM CDT documented as of this encounter Miscellaneous Notes * Telephone Encounter - Amber Vargas RN - 03/06/2020 4:47 PM CDT Reviewed with Dr. Gresham. Letter saved to media and number faxed to number listed below. Have included contact info for office for follow up regarding appeal. * Telephone Encounter - Rafal Brown - 03/05/2020 9:38 AM CDT A case for CPT [address] [facility] by Amy Cunningham at [facility] on 02/15/2020 and denied for medical necessity. We can request a new case after April 01 or request a fast appeal. Letter would need to be fax to [facility] Att: [facility] Appeals Department * Telephone Encounter - Amber Vargas RN - 02/19/2020 11:03 AM CDT Updated date Are there any changes to insurance? If there is a change, please indicate the new insurance details below. If it is unchanged to what is already in [facility], simply [facility] each with N/A Primary Insurance: Patient ID#: Group#: Insurance Phone#: ?? Radiology Test Request Details ?? Need pre-cert for: MRI Abdomen Liver W WO Contrast ?? Ordering physician: Theodore Gresham NPI: ??[id number] CPT Code: 99276 CPT Code description:MRI Abdomen Liver W WO Contrast ?? ICD-10 Code: Z94.4; R74.8 ICD-10 Code description: Liver transplant recipient; elevated liver enymes ?? Patient is having test due to:f/u imaging for lesion found on MRCP 2020 Complications patient is having: f/u imaging for lesion found on MRCP 2020 Testing is to rule out the following: f/u imaging for lesion found on MRCP 2020 Facility/Location test will be done: [facility] Date test will be done: March documented in this encounter Plan of Treatment Scheduled Procedures Name Priority Associated Diagnoses Date/Ti me COLONOSCOPY Encounter for screening for colorectal cancer in high risk patient Family history of rectal cancer documented as of this encounter Visit Diagnoses Not on filedocumented in this encounter Care Teams Warehouse Assistant Relationship Specialty Start Date End Date Cristine Guero, PCP - General Internal Medicine 03/22/19 04/18/23 Amber Montesinos, RN Creel Clerk Transplant 11/17/19 Jil Duncan MD Consulting Physician Infectious Diseases 01/10/20 documented as of this encounter
--- OUTSIDE RECORDS SUMMARY | 2024-10-28 06:22 | XMS_ITS | Encounter Summary ---
Author Organization [facility] Healthcare Address [address] [place] [address] Care Team Providers Care Saw Boss Name Role Phone Guero Colunga Primary Care Provider [phone] Amber Montesinos RN Unavailable [phone] Jil Duncan MD Unavailable [phone] Encounter Details Date Type Department Care Team (Late st Contact Info) Description 02/29/2020 8:20 PM CDT Lab [address] [address] Social History Tobacco Use Types Packs/Day Years Used Date Smoking Tobacco: Never Smokeless Tobacco: Never Alcohol Use Standard Drinks/Week Comments Yes 0 (1 standard drink = 0.6 oz pur e alcohol) occassional Sex and Gender Information Value Date Recorded Sex Assigned at Not on file 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 Gender Identity Not on file Sexual Orientation Straight 08/22/2021 9: 23 AM CDT documented as of this encounter Plan of Treatment Pending Results Name Type Priority Associated Diagnoses Date /Time Comprehensive metabolic panel (Outreach) Lab Routine 03/06/2020 9:48 PM CDT Scheduled Procedures Name Priority Associated Diagnoses Date/Ti me COLONOSCOPY Encounter for screening for colorectal cancer in high risk patient Family history of rectal cancer documented as of this encounter Procedures Procedure Name Priority Date/Time Associated Diagnosis Comments CYTOMEGALOVIRUS (CMV) DNA, QUANT GEN LAB Routine 03/06/2020 6:20 PM CDT GLUCOSE, RANDOM (OUTREACH) Routine 03/06/2020 6:20 PM CDT EGFR Routine 03/06/2020 6:20 PM CDT DIFFERENTIAL AUTO Routine 03/06/2020 6:2 0 PM CDT COMPREHENSIVE METABOLIC PANEL WITHOUT GLUCOSE (OUTREACH) Routine 03/06/2020 6:20 PM CDT CBC WITH AUTO DIFFERENTIAL Routine 03/06/2020 6:20 PM CDT CYTOMEGALOVIRUS (CMV) DNA, QUANT GEN LAB Routine 02/29/2020 2:00 PM CDT GLUCOSE, RANDOM (OUTREACH) Routine 02/29/2020 2:00 PM CDT DIFFERENTIAL AUTO Routine 02/29/2020 2:0 0 PM CDT COMPREHENSIVE METABOLIC PANEL WITHOUT GLUCOSE (OUTREACH) Routine 02/29/2020 2:00 PM CDT CBC WITH AUTO DIFFERENTIAL Routine 02/29/2020 2:00 PM CDT documented in this encounter Results * eGFR (03/06/2020 6:20 PM CDT) [facility] eGFR 129 mL/min/1.7 3 m2 [facility] Comment: Interpretive Data Reference Interval Normal ?>/= 90 mL/min/1.73m2 Mildly decreased* ? 60 - 89 mL/min/1.73m2 Mildly to moderately decreased ?45 - 59 mL/min/1.73m2 Moderately to severely decreased ??30 - 44 mL/min/1.73m2 Severely decreased ?15 - 29 mL/min/1.73m2 Kidney Failure ?< 15 ??mL/min/1.73m2 *Relative to young adult level If -Bulgarian multiply value by 1.16. Estimated glomerular filtration [...] was last reviewed 2016. Blood specimen (specimen) 03/06/2020 6:20 PM CDT 03/06/2020 9:37 PM CDT us Guero Colunga DO LAB BLOOD ORDERABLES Final Resul t [facility] [address] [place] [address] * (ABNORMAL) Differential, auto (03/06/2020 6:20 PM CDT) Neutrophil abs 3.3 1.7 - 6.5 K/cumm [facility] Imm gran abs 0.1 0.0 - 0.1 K/cumm [facility] Lymphocyte abs 3.7(H) 0.8 - 3.3 K/cumm [facility] Monocyte abs 1.3(H) 0.2 - 0.8 K/cumm [facility] Eosinophil abs 0.1 0.0 - 0.5 K/cumm [facility] Basophil abs 0.1 0.0 - 0.1 K/cumm [facility] Neutrophil pct 38.9 % [facility] Comment: Interpretive Data Percent cell count reference ranges are not reported, since discordance with absolute values may lead to misinterpretation of CBC data. Current Interpretive Data was last revised on 2018. Imm gran pct 0.8 % [facility] Comment: Interpretive Data Percent cell count reference ranges are not reported, since discordance with absolute values may lead to misinterpretation of CBC data. Current Interpretive Data was last revised on 2018. Lymphocyte pct 42.9 % [facility] Comment: Interpretive Data Percent cell count reference ranges are not reported, since discordance with absolute values may lead to misinterpretation of CBC data. Current Interpretive Data was last revised on 2018. Monocyte pct 15.2 % [facility] Comment: Interpretive Data Percent cell count reference ranges are not reported, since discordance with absolute values may lead to misinterpretation of CBC data. Current Interpretive Data was last revised on 2018. Eosinophil pct 1.4 % [facility] Comment: Interpretive Data Percent cell count reference ranges are not reported, since discordance with absolute values may lead to misinterpretation of CBC data. Current Interpretive Data was last revised on 2018. Basophil pct 0.8 % [facility] Comment: Interpretive Data Percent cell count reference ranges are not reported, since discordance with absolute values may lead to misinterpretation of CBC data. Current Interpretive Data was last revised on 2018. Blood specimen (specimen) 03/06/2020 6:20 PM CDT 03/06/2020 9:21 PM CDT us Guero Colunga DO LAB BLOOD ORDERABLES Final Resul t [facility] [address] Department [place] [address] * (ABNORMAL) Cytomegalovirus (CMV) DNA PCR, quantitative Blood (03/06/2020 6:20 PM CDT) CMV DNA Detected( A) [facility] Comment: Interpretive Data: The quantifiable range of this assay is 137 IUnits/mL to 9,100,000 IUnits/mL (2.14 log IUnits/mL to 6.96 log IUnits/mL). Testing was performed by the NIA AmpliPrep/NIA TaqMan CMV Test ([employer] Testing performed at [facility] Current interpretive data was last revised on 17. Testing performed by: [facility], [address] [place] [address], [place]., [address] CMV DNA IU/mL 576 IUnits/mL [facility] Comment:Testing performed by : [facility], [address] [facility], [place]., [address] CMV DNA log IU/mL 2.76 log IUnits/mL [facility] Comment:Testing performed by : [facility], [address] [place]., [address] Blood specimen (specimen) 03/06/2020 6:20 PM CDT 03/07/2020 10:02 AM CDT Guero Cristine DO LAB MICROBIOLOGY - GENERAL ORDER DARCY Final Result [facility] [address] [place] [employer] [place] [address] * (ABNORMAL) CBC with auto differential (03/06/2020 6:20 PM CDT) WBC 8.5 3.8 - 9.9 K/cumm [facility] Hgb 13.6 13.0 - 17.5 g/dL [facility] Hct 38.9 38.9 - 50.3 % [facility] Plt 214 150 - 400 K/cumm [facility] MPV 10.8 9.1 - 12.3 fL [facility] RBC 4.10(L) 4.30 - 5.80 M/cumm [facility] MCV 94.9 81.3 - 96.4 fL [facility] MCH 33.2 27.1 - 33.3 pg [facility] MCHC 35.0 32.3 - 35.7 g/dL [facility] RDW CV 15.3(H) 11.1 - 14.9 % [facility] RDW SD 53.1(H) 35.7 - 48.1 fL [facility] NRBC abs 0.00 0.00 - 0.01 K/cumm [facility] Blood specimen (specimen) 03/06/2020 6:20 PM CDT 03/06/2020 9:21 PM CDT [employer] LAB BLOOD ORDERABLES Final Resul t [facility] [address] [place] [address] * Glucose, random (Outreach) (03/06/2020 6:20 PM CDT) Glucose 112 70 - 199 mg/dL [facility] Comment: Interpretive Data Fasting glucose [...] was last revised 2017. Blood specimen (specimen) 03/06/2020 6:20 PM CDT 03/06/2020 9:18 PM CDT Narrative [facility] - 03/06/2020 9:48 PM CDT DIANNA DANIELS RN [phone] us Guero Colunga DO LAB BLOOD ORDERABLES Final Resul t [facility] [address] Department [place] [address] * (ABNORMAL) Comprehensive metabolic panel, without glucose (Outreach) (03/06/2020 6:20 PM CDT) Sodium 142 135 - 145 mmol/L [facility] Potassium, pl 3.7 3.3 - 4.9 mmol/L [facility] Chloride 103 97 - 110 mmol/L [facility] CO2 22 22 - 32 mmol/L [facility] Anion gap 17(H) 2 - 15 mmol/L [facility] BUN 10 8 - 25 mg/dL [facility] Creatinine 0.71(L) 0.80 - 1.30 mg/dL [facility] Calcium 9.3 8.5 - 10.3 mg/dL [facility] Protein, pl 5.9(L) 6.5 - 8.5 g/dL [facility] Albumin 4.3 3.5 - 5.0 g/dL [facility] Bilirubin, total 0.5 0.1 - 1.2 mg/dL [facility] Alk phos 373(H) 40 - 130 Units/L [facility] AST 64(H) 10 - 50 Units/L [facility] ALT 53 7 - 55 Units/L [facility] Blood specimen (specimen) 03/06/2020 6:20 PM CDT 03/06/2020 9:18 PM CDT Narrative [facility] - 03/06/2020 9:59 PM CDT DIANNA DANIELS RN [phone] Guero Colunga DO LAB BLOOD ORDERABLES Final Resul t Performing Organization Address City/[facility]/ZIP Co de Phone Number [facility] [address] Department [place] [address] * (ABNORMAL) Cytomegalovirus (CMV) DNA PCR, quantitative Blood (02/29/2020 2:00 PM CDT) CMV DNA Detected( A) [facility] Comment: Interpretive Data: The quantifiable range of this assay is 137 IUnits/mL to 9,100,000 IUnits/mL (2.14 log IUnits/mL to 6.96 log IUnits/mL). Testing was performed by the NIA AmpliPrep/NIA TaqMan CMV Test ([employer] Testing performed at [facility] Current interpretive data was last revised on 17. CMV DNA IU/mL 293 IUnits/mL [facility] CMV DNA log IU/mL 2.47 log IUnits/mL [facility] Blood specimen (specimen) 02/29/2020 2:00 PM CDT 02/29/2020 11:55 PM CDT Lawrence Bernardo MD LAB MICROBIOLOGY - GENERAL OR DERABLES Final Result [facility] [address] [facility] Department [place] [address] * (ABNORMAL) Differential, auto (02/29/2020 2:00 PM CDT) Neutrophil abs 4.9 1.7 - 6.5 K/cumm [facility] Imm gran abs 0.1 0.0 - 0.1 K/cumm [facility] Lymphocyte abs 4.4(H) 0.8 - 3.3 K/cumm [facility] Monocyte abs 1.4(H) 0.2 - 0.8 K/cumm [facility] Eosinophil abs 0.1 0.0 - 0.5 K/cumm [facility] Basophil abs 0.1 0.0 - 0.1 K/cumm [facility] Neutrophil pct 44.5 % [facility] Comment: Interpretive Data Percent cell count reference ranges are not reported, since discordance with absolute values may lead to misinterpretation of CBC data. Current Interpretive Data was last revised on 2018. Imm gran pct 0.9 % [facility] Comment: Interpretive Data Percent cell count reference ranges are not reported, since discordance with absolute values may lead to misinterpretation of CBC data. Current Interpretive Data was last revised on 2018. Lymphocyte pct 40.2 % [facility] Comment: Interpretive Data Percent cell count reference ranges are not reported, since discordance with absolute values may lead to misinterpretation of CBC data. Current Interpretive Data was last revised on 2018. Monocyte pct 13.1 % [facility] Comment: Interpretive Data Percent cell count reference ranges are not reported, since discordance with absolute values may lead to misinterpretation of CBC data. Current Interpretive Data was last revised on 2018. Eosinophil pct 0.5 % [facility] Comment: Interpretive Data Percent cell count reference ranges are not reported, since discordance with absolute values may lead to misinterpretation of CBC data. Current Interpretive Data was last revised on 2018. Basophil pct 0.8 % [facility] Comment: Interpretive Data Percent cell count reference ranges are not reported, since discordance with absolute values may lead to misinterpretation of CBC data. Current Interpretive Data was last revised on 2018. Blood specimen (specimen) 02/29/2020 2:00 PM CDT 02/29/2020 8:18 PM CDT Lawrence Bernardo MD LAB BLOOD ORDERABLES Final Re sult Performing Organization Address [facility] Co de Phone Number [facility] [place] [address] * (ABNORMAL) CBC with auto differential (02/29/2020 2:00 PM CDT) WBC 11.0(H) 3.8 - 9.9 K/cumm [facility] Hgb 15.2 13.0 - 17.5 g/dL [facility] Hct 44.2 38.9 - 50.3 % [facility] Plt 238 150 - 400 K/cumm [facility] MPV 10.4 9.1 - 12.3 fL [facility] RBC 4.64 4.30 - 5.80 M/cumm [facility] MCV 95.3 81.3 - 96.4 fL [facility] MCH 32.8 27.1 - 33.3 pg [facility] MCHC 34.4 32.3 - 35.7 g/dL [facility] RDW CV 16.1(H) 11.1 - 14.9 % [facility] RDW SD 56.6(H) 35.7 - 48.1 fL [facility] NRBC abs 0.00 0.00 - 0.01 K/cumm [facility] Blood specimen (specimen) 02/29/2020 2:00 PM CDT 02/29/2020 8:18 PM CDT Lawrence Bernardo MD LAB BLOOD ORDERABLES Final Re sult Performing Organization Address City/[facility]/ZIP Co de Phone Number [facility] Department [place] [address] * Glucose, random (Outreach) (02/29/2020 2:00 PM CDT) Glucose 99 70 - 199 mg/dL [facility] Comment: Interpretive Data Fasting glucose [...] was last revised 2017. Blood specimen (specimen) 02/29/2020 2:00 PM CDT 02/29/2020 8:18 PM CDT us Lawrence Bernardo MD LAB BLOOD ORDERABLES Final Re sult [facility] Department [place] [address] * (ABNORMAL) Comprehensive metabolic panel, without glucose (Outreach) (02/29/2020 2:00 PM CDT) Sodium 141 135 - 145 mmol/L [facility] Potassium, pl 4.1 3.3 - 4.9 mmol/L [facility] Chloride 106 97 - 110 mmol/L [facility] CO2 24 22 - 32 mmol/L [facility] Anion gap 11 2 - 15 mmol/L [facility] BUN 8 8 - 25 mg/dL [facility] Creatinine 0.63(L) 0.80 - 1.30 mg/dL [facility] Calcium 9.3 8.5 - 10.3 mg/dL [facility] Protein, pl 6.6 6.5 - 8.5 g/dL [facility] Albumin 4.6 3.5 - 5.0 g/dL [facility] Bilirubin, total 0.5 0.1 - 1.2 mg/dL [facility] Alk phos 346(H) 40 - 130 Units/L [facility] AST 43 10 - 50 Units/L [facility] ALT 49 7 - 55 Units/L [facility] Blood specimen (specimen) 02/29/2020 2:00 PM CDT 02/29/2020 8:18 PM CDT us Lawrence Bernardo MD LAB BLOOD ORDERABLES Final Re sult [facility] Department [place] [address] documented in this encounter Visit Diagnoses Not on filedocumented in this encounter Care Teams Saw Boss Relationship Specialty Start Date End Date Guero Colunga DO PCP - General Internal Medicine 03/22/19 04/18/23 Amber Montesinos, SHAILESH Casing Runner Transplant 11/17/19 Jil Duncan MD Consulting Physician Infectious Diseases 01/10/20 documented as of this encounter
--- OUTSIDE RECORDS SUMMARY | 2024-10-28 06:22 | XMS_ITS | Encounter Summary ---
Author Organization [facility] Address [address] [place] [address] Phone Care Team Providers Care Window Tinter Name Role Phone Guero Colunga Primary Care Provider [phone] Amber Montesinos RN Unavailable [phone] Jil Duncan MD Unavailable [phone] Reason for Visit * Auth/Cert Specialty Diagnoses / Procedures Referred By Contac t Referred To Contact Referral ID Status Reason Start Date Expiration Date Visits Re quested Visits Authorized [id number] 1 1 Encounter Details Date Type Department Care Team (Late st Contact Info) Description 02/29/2020 Home [facility] Visit [facility] [address] [place] [address] Rosalio Montana RN TRAVEL SCREENING CASE COMMUNICATION Social History Tobacco Use Types Packs/Day Years Used Date Smoking Tobacco: Never Smokeless Tobacco: Never Alcohol Use Standard Drinks/Week Comments Yes 0 (1 standard drink = 0.6 oz pur e alcohol) occassional Sex and Gender Information Value Date Recorded Sex Assigned at Not on file 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 Gender Identity Not on file Sexual Orientation Straight 08/22/2021 9: 23 AM CDT documented as of this encounter Plan of Treatment Scheduled Procedures Name Priority Associated Diagnoses Date/Ti me COLONOSCOPY Encounter for screening for colorectal cancer in high risk patient Family history of rectal cancer documented as of this encounter Visit Diagnoses Not on filedocumented in this encounter Care Teams Window Tinter Relationship Specialty Start Date End Date CristineGeneeDO PCP - General Internal Medicine 03/22/19 04/18/23 Amber Montesinos, RN Cyber Defense Incident Responder Transplant 11/17/19 Jil Duncan MD Consulting Physician Infectious Diseases 01/10/20 documented as of this encounter
--- OUTSIDE RECORDS SUMMARY | 2024-10-28 06:22 | XMS_ITS | Encounter Summary ---
Author Organization [facility] Address [address] [place] [address] Phone Care Team Providers Care Flame Annealing Machine Operator Name Role Phone Guero Colunga DO Primary Care Provider [phone] Amber Montesinos RN Unavailable [phone] Jil Duncan MD Unavailable [phone] Encounter Details Date Type Department Care Team (Late st Contact Info) Description 02/19/2020 Telephone [facility] Infectious Diseases [address] [place] [phone] Ny Griffin Social History Tobacco Use Types Packs/Day Years Used Date Smoking Tobacco: Never Smokeless Tobacco: Never Alcohol Use Standard Drinks/Week Comments Yes 0 (1 standard drink = 0.6 oz pur e alcohol) occassional Sex and Gender Information Value Date Recorded Sex Assigned at Not on file 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 Thank you documented in this encounter Plan of Treatment Scheduled Procedures Name Priority Associated Diagnoses Date/Ti me COLONOSCOPY Encounter for screening for colorectal cancer in high risk patient Family history of rectal cancer documented as of this encounter Visit Diagnoses Not on filedocumented in this encounter Care Teams Flame Annealing Machine Operator Relationship Specialty Start Date End Date Guero Colunga DO PCP - General Internal Medicine 03/22/19 04/18/23 Amber Montesinos, SHAILESH Fashion Stylist Transplant 11/17/19 Jil Duncan MD Consulting Physician Infectious Diseases 01/10/20 documented as of this encounter
--- OUTSIDE RECORDS SUMMARY | 2024-10-28 06:22 | XMS_ITS | Encounter Summary ---
Author Organization [facility] Home Care [facility] Address [address] [place] [address] Phone Care Team Providers Care Software Support Representative Name Role Phone Guero Colunga Primary Care Provider [phone] Amber Montesinos RN Unavailable [phone] Jil Duncan MD Unavailable [phone] Reason for Visit * Auth/Cert Specialty Diagnoses / Procedures Referred By Contac t Referred To Contact Referral ID Status Reason Start Date Expiration Date Visits Re quested Visits Authorized [id number] 1 1 Encounter Details Date Type Department Care Team (Late st Contact Info) Description 02/29/2020 1:00 PM CDT Home Care Visit 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 Gender Identity Not on file Sexual Orientation Straight 08/22/2021 9: 23 AM CDT documented as of this encounter Last Filed Vital Signs Vital Sign Reading Time Taken Comments Blood Pressure 100/62 02/29/2020 2:20 PM CDT Pulse 82 02/29/2020 2:20 PM CDT Temperature 36.4 ??C (97.5 ??F) 02/29/2020 2:20 PM CD T Respiratory Rate 18 02/29/2020 2:20 PM CDT Oxygen Saturation 98% 02/29/2020 2:20 PM CDT Inhaled Oxygen Concentration - - [...] mL, intravenous, As needed, patency, Starting on Wed03/01/20 at 1412, Indications: Maintain Patency of Indwelling Vascular CatheterIndications:Maintain Patency of Indwelling Vascular Catheter Given 02/29/2020 2:30 PM CDT 5 mL sodium chloride 0.9 %, flush, (SALINE FLUSH INJ) 10 mL, intravenous, As needed, patency, Starting on Wed03/01/20 at 1412, Indications: Maintain Patency of Indwelling Vascular CatheterIndications:Maintain Patency of Indwelling Vascular Catheter Given 02/29/2020 2:30 PM CDT 10 mL documented in this [...] goal intervention scheduled/document ed in this visit Infection Prevention Disciplines: Retirement Infection Prevention 02/18/2020 Active 1 goal linked to scheduled/documen mohsen intervention 1 goal intervention scheduled/document ed in this visit Collect Specimen/Lab Draw Disciplines: Retirement Need to collect specimen sample 02/18/2020 Active [...] visit during episode of care Description: Home production tech to measure vital signs during every home health visit during episode of care. Monitor patient's vital signs every home health visit No Verbalize signs of infection Description: Verbalize signs of infection Infection Prevention No Interventions Intervention Associated Problem/Goal Status Variance [...] PICC Problem:IV Therapy-Management, Education, and Maintenance Completed rn changed sterile dressing to picc lt arm site cleansed with chlorhexidine x 30 seconds allowed to dry. new statlock applied. covered with sorbaview dressing, new clave added and taped securely alcohol swab cap applied Instruct on High Risk Medications Description: Instruct patient/caregiver on high-risk/high-alert medications, including: GANCICLOVIR, immunosuppressant, TACROLIMUS Problem:Medications Goal:Understand and follow medication therapy Completed reviewed iv med s.e and need to wear gloves with infusion. pt and family verbalized good understanding Monitor Vital Signs Description: Monitor blood [...] warmth. Problem:Infection Prevention Goal:Verbalize signs of infection reviewed good handwashing, white goods appliance tech with all aspects of iv admin, and keeping picc site clean and dry and dressing occlusive at all times pt verbalized good understanding Lab draw Description: Labs CMV PCR, CBC c diff and CMP 1x/week Problem:Collect Specimen/Lab Draw Completed cbc cmp cmv pcr to [facility] lab documented in this encounter Care Teams Software Support Representative Relationship Specialty Start Date End Date Guero Colunga DO PCP - General Internal Medicine 03/22/19 04/18/23 Amber Montesinos, SHAILESH Diagrammer And Seamer Transplant 11/17/19 Jil Duncan MD Consulting Physician Infectious Diseases 01/10/20 documented as of this encounter
--- OUTSIDE RECORDS SUMMARY | 2024-10-28 06:22 | XMS_ITS | Encounter Summary ---
Author Organization [facility] Home Care [facility] Address [address] [place] [address] Phone Care Team Providers Care Inspector Health Care Facilities Name Role Phone Guero Colunga DO Primary Care Provider [phone] Amber Montesinos RN Unavailable [phone] Jil Duncan MD Unavailable [phone] Encounter Details Date Type Department Care Team (Late st Contact Info) Description 02/17/2020 Orders Only [facility] [address] [place] [address] Laurent Medina [facility] Social History Tobacco Use Types Packs/Day Years Used Date Smoking Tobacco: Never Smokeless Tobacco: Never Alcohol Use Standard Drinks/Week Comments Yes 0 (1 standard drink = 0.6 oz pur e alcohol) occassional Sex and Gender Information Value Date Recorded Sex Assigned at Not on file 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 Ganciclovir 270mg in Normal Saline 100mL, infuse intravenously over 60 minutes every 12 hours by Elastomeric Device at 100mL/hr. Lot 4 weeks Labs CMV PCR, CBC c diff and BMP 1x/week longterm visit 1 to 2 times per week for 5 weeks for patient assessment, teaching, IV catheter care, and lab work. 5 weeks should represent the expected duration of therapy or 9 weeks maximum duration. documented in this encounter Plan of Treatment Scheduled Procedures Name Priority Associated Diagnoses Date/Ti me COLONOSCOPY Encounter for screening for colorectal cancer in high risk patient Family history of rectal cancer documented as of this encounter Visit Diagnoses Not on filedocumented in this encounter Care Teams Inspector Health Care Facilities Relationship Specialty Start Date End Date Guero Colunga DO PCP - General Internal Medicine 03/22/19 04/18/23 Amber Montesinos, SHAILESH Bagger Meat Transplant 11/17/19 Jil Duncan MD Consulting Physician Infectious Diseases 01/10/20 documented as of this encounter
--- OUTSIDE RECORDS SUMMARY | 2024-10-28 06:22 | XMS_ITS | Encounter Summary ---
Author Organization [facility] Address [address] [place] [address] Phone Care Team Providers Care Director Multiple Sclerosis Center Name Role Phone Guero Colunga Primary Care Provider [phone] Amber Montesinos RN Unavailable [phone] Jil Duncan MD Unavailable [phone] Reason for Visit * Auth/Cert Specialty Diagnoses / Procedures Referred By Contac t Referred To Contact Referral ID Status Reason Start Date Expiration Date Visits Re quested Visits Authorized [id number] 1 1 Encounter Details Date Type Department Care Team (Late st Contact Info) Description 02/24/2020 2:15 PM CDT Home Care Visit [facility] [address] [place] [phone] Irma Parr, RN SN HOME VISIT Social History Tobacco Use Types Packs/Day Years Used Date Smoking Tobacco: Never Smokeless Tobacco: Never Alcohol Use Standard Drinks/Week Comments Yes 0 (1 standard drink = 0.6 oz pur e alcohol) occassional Sex and Gender Information Value Date Recorded Sex Assigned at Not on file 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 Gender Identity Not on file Sexual Orientation Straight 08/22/2021 9: 23 AM CDT documented as of this encounter Last Filed Vital Signs Vital Sign Reading Time Taken Comments Blood Pressure 120/80 02/24/2020 11:30 AM CDT Pulse 76 02/24/2020 11:30 AM CDT Temperature 36.6 ??C (97.9 ??F) 02/24/2020 11:30 AM C DT Respiratory Rate 18 02/24/2020 11:30 AM CDT Oxygen Saturation 98% 02/24/2020 11:30 AM CDT Inhaled Oxygen Concentration - [...] Details Visit Type -SN Home Visit Discipline -Care Home Problems Problem Description Start Date Status Goals Interve ntions IV Therapy-Manag ement, Education, and Maintenance Disciplines: Care Home Teaching and learning needs for performing home IV therapy 02/18/2020 Active - 1 problem intervention scheduled/document ed in this visit Monitor patient's vital signs every home health visit Disciplines: Care Home Monitor patient's vital signs every home health visit. 02/18/2020 Active 1 goal linked to scheduled/documen mohsen intervention 1 goal intervention scheduled/document ed in this visit Goals Goal Associated Problem Outcome Goal Met? Visit Notes Measure vital signs during every home health visit during episode of care Description: Home access clinician to measure vital signs during every [...] PICC Problem:IV Therapy-Management, Education, and Maintenance Completed STERILE PIC LINE DRSG DONE WITH STERILE PIC LINE KIT, NO S/S OF INFECTION, TEACHING DONE TO CLIENT TO CALL MD WITH ANY S/S OF INFECTION; REDNESS, SWELLING OR COLORED PURULENT DRAINAGE, CLIENT VERBALIZED UNDERSTANIDNG Monitor Vital Signs Description: Monitor blood pressure, pulse, oxygen saturation, respirations Problem:Monitor patient's vital signs every home health visit Goal:Measure vital signs during every home health visit during episode of care Scheduled documented in this encounter Care Teams Director Multiple Sclerosis Center Relationship Specialty Start Date End Date Guero Colunga DO PCP - General Internal Medicine 03/22/19 04/18/23 Amber Montesinos, SHAILESH Fabric Coating Supervisor Transplant 11/17/19 Jil Duncan MD Consulting Physician Infectious Diseases 01/10/20 documented as of this encounter
--- OUTSIDE RECORDS SUMMARY | 2024-10-28 06:22 | XMS_ITS | Encounter Summary ---
Author Organization [facility] Healthcare Address [address] [place] [address] Care Team Providers Care Director Of Institutional Giving Name Role Phone Guero Colunga Primary Care Provider [phone] Amber Montesinos RN Unavailable [phone] Jil Duncan MD Unavailable [phone] Encounter Details Date Type Department Care Team (Late st Contact Info) Description 02/22/2020 7:45 PM CDT Lab [address] [address] Social History Tobacco Use Types Packs/Day Years Used Date Smoking Tobacco: Never Smokeless Tobacco: Never Alcohol Use Standard Drinks/Week Comments Yes 0 (1 standard drink = 0.6 oz pur e alcohol) occassional Sex and Gender Information Value Date Recorded Sex Assigned at Not on file 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 Gender Identity Not on file Sexual Orientation [...] CYTOMEGALOVIRUS (CMV) DNA, QUANT GEN LAB Routine 02/22/2020 4:30 PM CDT GLUCOSE, RANDOM (OUTREACH) Routine 02/22/2020 4:30 PM CDT DIFFERENTIAL AUTO Routine 02/22/2020 4:3 0 PM CDT COMPREHENSIVE METABOLIC PANEL WITHOUT GLUCOSE (OUTREACH) Routine 02/22/2020 4:30 PM CDT CBC WITH AUTO DIFFERENTIAL Routine 02/22/2020 4:30 PM CDT documented in this encounter Results * (ABNORMAL) Cytomegalovirus (CMV) DNA PCR, quantitative Blood (02/22/2020 4:30 PM CDT) [facility] CMV DNA Detected( A) [facility] Comment: Interpretive Data: The quantifiable range of this assay is 137 IUnits/mL to 9,100,000 IUnits/mL (2.14 log IUnits/mL to 6.96 log IUnits/mL). Testing was performed by the [employer] AmpliPrep/NIA TaqMan CMV Test ([employer] Testing performed at [facility] Current interpretive data was last revised on 17. CMV DNA IU/mL 405 IUnits/mL [facility] CMV DNA log IU/mL 2.61 log IUnits/mL [facility] Blood specimen (specimen) 02/22/2020 4:30 PM CDT 02/22/2020 11:56 PM CDT us Ige Sondio Duncan MD LAB MICROBIOLOGY - GENERAL ORDERABLES Final Result [facility] [place] [address] * (ABNORMAL) Differential, auto (02/22/2020 4:30 PM CDT) [facility] Neutrophil abs 4.4 1.7 - 6.5 K/cumm [facility] Imm gran abs 0.1 0.0 - 0.1 K/cumm [facility] Lymphocyte abs 3.6(H) 0.8 - 3.3 K/cumm [facility] Monocyte abs 1.0(H) 0.2 - 0.8 K/cumm [facility] Eosinophil abs 0.1 0.0 - 0.5 K/cumm [facility] Basophil abs 0.1 0.0 - 0.1 K/cumm [facility] Neutrophil pct 47.1 % [facility] Comment: Interpretive Data Percent cell count reference ranges are not reported, since discordance with absolute values may lead to misinterpretation of CBC data. Current Interpretive Data was last revised on 2018. Imm gran pct 1.2 % [facility] Comment: Interpretive Data Percent cell count reference ranges are not reported, since discordance with absolute values may lead to misinterpretation of CBC data. Current Interpretive Data was last revised on 2018. Lymphocyte pct 38.8 % [facility] Comment: Interpretive Data Percent cell count reference ranges are not reported, since discordance with absolute values may lead to misinterpretation of CBC data. Current Interpretive Data was last revised on 2018. Monocyte pct 10.4 % [facility] Comment: Interpretive Data Percent cell count reference ranges are not reported, since discordance with absolute values may lead to misinterpretation of CBC data. Current Interpretive Data was last revised on 2018. Eosinophil pct 1.2 % [facility] Comment: Interpretive Data Percent cell count reference ranges are not reported, since discordance with absolute values may lead to misinterpretation of CBC data. Current Interpretive Data was last revised on 2018. Basophil pct 1.3 % [facility] Comment: Interpretive Data Percent cell count reference ranges are not reported, since discordance with absolute values may lead to misinterpretation of CBC data. Current Interpretive Data was last revised on 2018. Blood specimen (specimen) 02/22/2020 4:30 PM CDT 02/22/2020 7:45 PM CDT us Ige Sonido Duncan MD LAB BLOOD ORDERABLES Final Result [facility] [place] [address] * (ABNORMAL) CBC with auto differential (02/22/2020 4:30 PM CDT) Pathologist [facility] WBC 9.3 3.8 - 9.9 K/cumm [facility] Hgb 14.4 13.0 - 17.5 g/dL [facility] Hct 40.3 38.9 - 50.3 % [facility] Plt 219 150 - 400 K/cumm [facility] MPV 10.2 9.1 - 12.3 fL [facility] RBC 4.34 4.30 - 5.80 M/cumm [facility] MCV 92.9 81.3 - 96.4 fL [facility] MCH 33.2 27.1 - 33.3 pg [facility] MCHC 35.7 32.3 - 35.7 g/dL [facility] RDW CV 15.1(H) 11.1 - 14.9 % [facility] RDW SD 51.8(H) 35.7 - 48.1 fL [facility] NRBC abs 0.00 0.00 - 0.01 K/cumm [facility] Blood specimen (specimen) 02/22/2020 4:30 PM CDT 02/22/2020 7:45 PM CDT us Ige Sonido Duncan MD LAB BLOOD ORDERABLES Final Result [facility] [place] [address] * Glucose, random (Outreach) (02/22/2020 4:30 PM CDT) [facility] Glucose 103 70 - 199 mg/dL [facility] Comment: Interpretive Data Fasting glucose >/= [...] was last revised 2017. Blood specimen (specimen) 02/22/2020 4:30 PM CDT 02/22/2020 7:40 PM CDT Ige Sonido Duncan MD LAB BLOOD ORDERABLES Final Result Performing Organization Address [facility] Co de Phone Number [facility] Department [place] [address] * (ABNORMAL) Comprehensive metabolic panel, without glucose (Outreach) (02/22/2020 4:30 PM CDT) Sodium 140 135 - 145 mmol/L [facility] Potassium, pl 4.2 3.3 - 4.9 mmol/L [facility] Chloride 103 97 - 110 mmol/L [facility] CO2 27 22 - 32 mmol/L [facility] Anion gap 10 2 - 15 mmol/L [facility] BUN 13 8 - 25 mg/dL [facility] Creatinine 0.64(L) 0.80 - 1.30 mg/dL [facility] Calcium 9.7 8.5 - 10.3 mg/dL [facility] Protein, pl 6.0(L) 6.5 - 8.5 g/dL [facility] Albumin 4.2 3.5 - 5.0 g/dL [facility] Bilirubin, total 0.5 0.1 - 1.2 mg/dL [facility] Alk phos 262(H) 40 - 130 Units/L [facility] AST 45 10 - 50 Units/L [facility] ALT 46 7 - 55 Units/L [facility] Blood specimen (specimen) 02/22/2020 4:30 PM CDT 02/22/2020 7:40 PM CDT Ige Sonido Duncan MD LAB BLOOD ORDERABLES Final Result Performing Organization Address [facility]/ZIP Co de Phone Number [facility] [place] [address] documented in this encounter Visit Diagnoses Not on filedocumented in this encounter Care Teams Director Of Institutional Giving Relationship Specialty Start Date End Date Guero Colunga DO PCP - General Internal Medicine 03/22/19 04/18/23 Amber Montesinos, SHAILESH Honeycomb Decapper Transplant 11/17/19 Jil uDncan MD Consulting Physician Infectious Diseases 01/10/20 documented as of this encounter
--- OUTSIDE RECORDS SUMMARY | 2024-10-28 06:22 | XMS_ITS | Encounter Summary ---
Author Organization [facility] Healthcare Address [address] [place] [address] Care Team Providers Care Preservationist Name Role Phone Guero Colunga Primary Care Provider [phone] Amber Montesinos RN Unavailable [phone] Jil Duncan MD Unavailable [phone] Encounter Details Date Type Department Care Team (Late st Contact Info) Description 03/05/2020 Telephone [facility] Transplant Liver [address] [facility] [phone] [place] [address] Rafia Wright Social History Tobacco Use Types Packs/Day Years Used Date Smoking Tobacco: Never Smokeless Tobacco: Never Alcohol Use Standard Drinks/Week Comments Yes 0 (1 standard drink = 0.6 oz pur e alcohol) occassional Sex and Gender Information Value Date Recorded Sex Assigned at Not on file 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 Mother stating that patient is doing well, returned back to worktoday. Vitals stable, no fever. Patient will be on his fourth week of ganciclovir starting next week. Reviewed recent labs with mother. LFT's have improved other than alk phos is recently increasing.CMV PCR slowly down trending. Let mother know that I was unsure which office was managing his IV ganciclovir and that I would follow up with our music education adjunct professor and get back to her. Patient is scheduledfor a follow up appointment on 03/[address] Gresham to review patient's labs. Waiting for reply from ID office about patient's treatment. * Telephone Encounter - Maryam Irene RN - 03/05/2020 3:22 PM CDT CB to pt and LMOR that primary coordinator will call him tomorrow. Re: blood work * Telephone Encounter - Rafia Wright - 03/05/2020 10:18 AM CDT Pt would like return call to discuss blood work. [phone]. documented in this encounter Plan of Treatment Scheduled Procedures Name Priority Associated Diagnoses Date/Ti me COLONOSCOPY Encounter for screening for colorectal cancer in high risk patient Family history of rectal cancer documented as of this encounter Visit Diagnoses Not on filedocumented in this encounter Care Teams Preservationist Relationship Specialty Start Date End Date Guero Colunga DO PCP - General Internal Medicine 03/22/19 04/18/23 Amber Montesinos, SHAILESH Smooth Plater Transplant 11/17/19 Jil Duncan MD Consulting Physician Infectious Diseases 01/10/20 documented as of this encounter
--- OUTSIDE RECORDS SUMMARY | 2024-10-28 06:22 | XMS_ITS | Encounter Summary ---
Author Organization [facility] Address [address] [place] [address] Phone Care Team Providers Care Homogenizer Operator Name Role Phone Guero Colunga DO Primary Care Provider [phone] Amber Montesinos RN Unavailable [phone] Jil Duncan MD Unavailable [phone] Encounter Details Date Type Department Care Team (Late st Contact Info) Description 02/18/2020 Documentation [facility] Gastroenterology [address] [facility] [address] [place] [id number] Theodore Gresham MD [address] [facility] [address] [place] [address] Social History Tobacco Use Types Packs/Day Years Used Date Smoking Tobacco: Never Smokeless Tobacco: Never Alcohol Use Standard Drinks/Week Comments Yes 0 (1 standard drink = 0.6 oz pur e alcohol) occassional Sex and Gender Information Value Date Recorded Sex Assigned at Not on file 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 He also underwent a repeat MRI that showed an improvement in the hepatic findings. Recommendation: 1. Labs weekly: CMP, CBC, CMV DNA PCR (if not already set up at discharge, would get drawn on 2019) 2. Reschedule liver MRI from 4-6 weeks from now (since he had one on February 17, 2020). documented in this encounter Plan of Treatment Scheduled Procedures Name Priority Associated Diagnoses Date/Ti me COLONOSCOPY Encounter for screening for colorectal cancer in high risk patient Family history of rectal cancer documented as of this encounter Visit Diagnoses Not on filedocumented in this encounter Care Teams Homogenizer Operator Relationship Specialty Start Date End Date Guero Colunga DO PCP - General Internal Medicine 03/22/19 04/18/23 Amber Montesinos RN Hotel Guest Service Agent Transplant 11/17/19 Jil Duncan MD Consulting Physician Infectious Diseases 01/10/20 documented as of this encounter
--- OUTSIDE RECORDS SUMMARY | 2024-10-28 06:22 | XMS_ITS | Encounter Summary ---
Author Organization [facility] Address [address] [place] [address] Phone Care Team Providers Care Wire Products Inspector Name Role Phone Guero Colunga DO Primary Care Provider [phone] Amber Montesinos RN Unavailable [phone] Jil Duncan MD Unavailable [phone] Encounter Details Date Type Department Care Team (Late st Contact Info) Description 02/19/2020 Telephone [facility] Oncology [facility] 7th [place] [address] [place] [address] Samreen Greene RN Social History Tobacco Use Types Packs/Day Years Used Date Smoking Tobacco: Never Smokeless Tobacco: Never Alcohol Use Standard Drinks/Week Comments Yes 0 (1 standard drink = 0.6 oz pur e alcohol) occassional Sex and Gender Information Value Date Recorded Sex Assigned at Not on file 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 no Is the patient on a research study with a research oral medication? no Spoke to Brooklynn on behalf of Beka. She states he has been feeling well since being discharged. He will be receiving IV valganciclovir every 12 hours at home. Brooklynn states the home drafter automotive design came outSunday and demonstrated everything. They are feeling very comfortable with the administration. Judit have his dressing changed this . The plan is to repeat his MRI in 4-6 weeks (most recent performed on 02/17/20). They know to call with any questions or concerns in the interim. documented in this encounter Plan of Treatment Scheduled Procedures Name Priority Associated Diagnoses Date/Ti me COLONOSCOPY Encounter for screening for colorectal cancer in high risk patient Family history of rectal cancer documented as of this encounter Visit Diagnoses Not on filedocumented in this encounter Care Teams Wire Products Inspector Relationship Specialty Start Date End Date Guero Colunga DO PCP - General Internal Medicine 03/22/19 04/18/23 Amber Montesinos RN Automotive Diagnostic Technician Transplant 11/17/19 Jil Duncan MD Consulting Physician Infectious Diseases 01/10/20 documented as of this encounter
--- OUTSIDE RECORDS SUMMARY | 2024-10-28 06:22 | XMS_ITS | Encounter Summary ---
Author Organization [facility] Address [address] [place] [address] Care Team Providers Care Weapons Designer Name Role Phone Guero Colunga DO Primary Care Provider [phone] Amber Montesinos RN Unavailable [phone] Jil Duncan MD Unavailable [phone] Encounter Details Date Type Department Care Team (Late st Contact Info) Description 02/15/[address] 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 No / Unsure 01/17/2020 7:12 AM CDT documented as of this encounter Miscellaneous Notes * Telephone Encounter - Amber Vargas RN - 02/15/2020 10:43 AM CDT Spoke with Samreen, nurse coordinator for Dr. Gillespie. Patient being admitted under Dr. Gillespie'sservice. Left a voicemail for N[facility] for oncology documented in this encounter Plan of Treatment Scheduled Procedures Name Priority Associated Diagnoses Date/Ti me COLONOSCOPY Encounter for screening for colorectal cancer in high risk patient Family history of rectal cancer documented as of this encounter Visit Diagnoses Not on filedocumented in this encounter Care Teams Weapons Designer Relationship Specialty Start Date End Date Guero Colunga DO PCP - General Internal Medicine 03/22/19 04/18/23 Amber Montesinos, RN Remelt Operator Transplant 11/17/19 Jil Duncan MD Consulting Physician Infectious Diseases 01/10/20 documented as of this encounter
--- OUTSIDE RECORDS SUMMARY | 2024-10-28 06:22 | XMS_ITS | Encounter Summary ---
Author Organization [facility] Address [address] [place] [address] Phone Care Team Providers Care System Administrator Name Role Phone Guero Colunga Primary Care Provider Amber Montesinos RN Unavailable [phone] Jil Duncan MD Unavailable [phone] Reason for Visit * Auth/Cert Specialty Diagnoses / Procedures Referred By Contac t Referred To Contact Referral ID Status Reason Start Date Expiration Date Visits Re quested Visits Authorized [id number] 1 1 Encounter Details Date Type Department Care Team (Late st Contact Info) Description 02/24/2020 Home Care Visit [facility] [address] [place] [address] Irma Parr RN TRAVEL SCREENING CASE COMMUNICATION Social History Tobacco Use Types Packs/Day Years Used Date Smoking Tobacco: Never Smokeless Tobacco: Never Alcohol Use Standard Drinks/Week Comments Yes 0 (1 standard drink = 0.6 oz pur e alcohol) occassional Sex and Gender Information Value Date Recorded Sex Assigned at Not on file 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 Gender Identity Not on file Sexual Orientation Straight 08/22/2021 9: 23 AM CDT documented as of this encounter Plan of Treatment Scheduled Procedures Name Priority Associated Diagnoses Date/Ti me COLONOSCOPY Encounter for screening for colorectal cancer in high risk patient Family history of rectal cancer documented as of this encounter Visit Diagnoses Not on filedocumented in this encounter Care Teams System Administrator Relationship Specialty Start Date End Date Gene ColungaeDO PCP - General Internal Medicine 03/22/19 04/18/23 Amber Montesinos, RN Senior Programmer Transplant 11/17/19 Jil Duncan MD Consulting Physician Infectious Diseases 01/10/20 documented as of this encounter
--- OUTSIDE RECORDS SUMMARY | 2024-10-28 06:22 | XMS_ITS | Encounter Summary ---
Author Organization [facility] Address [address] [place] [address] Phone Care Team Providers Care Institutional Commodity Analyst Name Role Phone Guero Colunga DO Primary Care Provider Amber Montesinos RN Unavailable [phone] Jil Duncan MD Unavailable [phone] Encounter Details Date Type Department Care Team (Late st Contact Info) Description 02/17/2020 Home Care Visit [facility] [address] [place] [id number] Cassi Joyce RN TRAVEL SCREENING CASE COMMUNICATION Social History Tobacco Use Types Packs/Day Years Used Date Smoking Tobacco: Never Smokeless Tobacco: Never Alcohol Use Standard Drinks/Week Comments Yes 0 (1 standard drink = 0.6 oz pur e alcohol) occassional Sex and Gender Information Value Date Recorded Sex Assigned at Not on file 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 Gender Identity Not on file Sexual Orientation Straight 08/22/2021 9: 23 AM CDT documented as of this encounter Plan of Treatment Scheduled Procedures Name Priority Associated Diagnoses Date/Ti me COLONOSCOPY Encounter for screening for colorectal cancer in high risk patient Family history of rectal cancer documented as of this encounter Visit Diagnoses Not on filedocumented in this encounter Care Teams Institutional Commodity Analyst Relationship Specialty Start Date End Date Guero Colunga DO PCP - General Internal Medicine 03/22/19 04/18/23 Amber Montesinos, RN Application Architect Transplant 11/17/19 Jil Duncan MD Consulting Physician Infectious Diseases 01/10/20 documented as of this encounter
--- OUTSIDE RECORDS SUMMARY | 2024-10-28 06:22 | XMS_ITS | Encounter Summary ---
Author Organization [facility] Address [address] [place] [address] Care Team Providers Care Packing Machine Inspector Name Role Phone Guero Colunga Primary Care Provider [phone] Amber Montesinos RN Unavailable [phone] Jil Duncan MD Unavailable [phone] Encounter Details Date Type Department Care Team (Late st Contact Info) Description 02/19/2020 Telephone [facility] Transplant Liver [address] 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 Gresham's recent note. Patient discharged home from the hospital on Wednesday. Contacted [facility] infusion center to verify lab orders. Spoke to pharmacistTrudy. They will draw weekly CMP, CBC and CMV PCR per Dr. Gresham. Spoke to Moni from as well. She wanted to verify pt did not need another tac trough done (pt most recently had one on 02/08). Let her know that I will have patient get trough rechecked the beginning of March. Provided contact info in case has any questions. Labs will be dropped off at a [place] facility. Contacted mother this morning. Patient doing fine at home. They have no questions regarding patient's PICC line at this time. Let her know that we will discuss patient resuming valcyte after infusions are complete. Emailed mother with new date of MRI of abdomen (rescheduled per Dr. Gresham request for 4-6 weeks after MRI done on 02/17/2020) * Telephone Encounter - Rafia Wright - 02/19/2020 11:01 AM CDT VM from [facility] asking for call re: lab draws. Call to [phone]. documented in this encounter Plan of Treatment Scheduled Procedures Name Priority Associated Diagnoses Date/Ti me COLONOSCOPY Encounter for screening for colorectal cancer in high risk patient Family history of rectal cancer documented as of this encounter Visit Diagnoses Not on filedocumented in this encounter Care Teams Packing Machine Inspector Relationship Specialty Start Date End Date Guero Colunga DO PCP - General Internal Medicine 03/22/19 04/18/23 Amber Montesinos, SHAIELSH Medical Assisting Program Director Transplant 11/17/19 Jil Duncan MD Consulting Physician Infectious Diseases 01/10/20 documented as of this encounter
--- OUTSIDE RECORDS SUMMARY | 2024-10-28 06:22 | XMS_ITS | Encounter Summary ---
Author Organization [facility] Address [address] [place] [address] Phone Care Team Providers Care Extension Associate Name Role Phone Guero Colunga DO Primary Care Provider [phone] Amber Montesinos RN Unavailable [phone] Jil Duncan MD Unavailable [phone] Encounter Details Date Type Department Care Team (Late st Contact Info) Description 02/17/2020 Home Care Visit [facility] [address] [place] [id number] Cassi Joyce RN TRAVEL SCREENING CASE COMMUNICATION Social History Tobacco Use Types Packs/Day Years Used Date Smoking Tobacco: Never Smokeless Tobacco: Never Alcohol Use Standard Drinks/Week Comments Yes 0 (1 standard drink = 0.6 oz pur e alcohol) occassional Sex and Gender Information Value Date Recorded Sex Assigned at Not on file 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 Gender Identity Not on file Sexual Orientation Straight 08/22/2021 9: 23 AM CDT documented as of this encounter Plan of Treatment Scheduled Procedures Name Priority Associated Diagnoses Date/Ti me COLONOSCOPY Encounter for screening for colorectal cancer in high risk patient Family history of rectal cancer documented as of this encounter Visit Diagnoses Not on filedocumented in this encounter Care Teams Extension Associate Relationship Specialty Start Date End Date Guero Colunga DO PCP - General Internal Medicine 03/22/19 04/18/23 Amber Montesinos, RN Linoleum Mechanic Transplant 11/17/19 Jil Duncan MD Consulting Physician Infectious Diseases 01/10/20 documented as of this encounter
--- OUTSIDE RECORDS SUMMARY | 2024-10-28 06:22 | XMS_ITS | Encounter Summary ---
Author Organization [facility] Address [address] [place] [address] Phone Care Team Providers Care Staff Sonographer Name Role Phone Guero Colunga DO Primary Care Provider [phone] Amber Montesinos RN Unavailable [phone] Jil Duncan MD Unavailable [phone] Reason for Visit * Reason Comments CMV Viremia * Auth/Cert Specialty Diagnoses / Procedures Referred By Sascha t Referred To Contact Referral ID Status Reason Start Date Expiration Date Visits Re quested Visits Authorized [id number] 1 1 Encounter Details Date Type Department Care Team (Latest Contact Info) Description 02/18/2020 8:00 AM CDT Home Care Visit [facility] [address] [place] [address] Cassi Joyce RN SN NON OASIS START OF CARE Social History Tobacco Use Types Packs/Day Years Used Date Smoking Tobacco: Never Smokeless Tobacco: Never Alcohol Use Standard Drinks/Week Comments Yes 0 (1 standard drink = 0.6 oz pur e alcohol) occassional Sex and Gender Information Value Date Recorded Sex Assigned at Not on file Legal Sex Male 6:28 AM [employer] Gender Identity Not on file Sexual Orientation Straight 08/22/2021 9: 23 AM CDT documented as of this encounter Last Filed Vital Signs Vital Sign Reading Time Taken Comments Blood Pressure 118/78 02/18/2020 11:59 AM CDT Pulse 76 02/18/2020 11:59 AM CDT Temperature 36.7 ??C (98.1 ??F) 02/18/2020 11:59 AM C DT Respiratory Rate 16 02/18/2020 11:59 AM CDT Oxygen Saturation 98% 02/18/2020 11:59 AM CDT Inhaled Oxygen Concentration - - Weight 54.9 kg (121 lb) 02/18/2020 11:59 AM CDT Height 172.7 cm (5' 8 ) 02/18/2020 11:59 AM CDT Body Mass Index 18.4 02/18/2020 11:59 AM CDT documented in this encounter Plan [...] MAR Action Action Date Dose Rate Site ganciclovir (CYTOVENE) 500 mg injection 270 mg, intravenous, Every 12 hours, First dose on 02/18/20 at 2145, Indications: CMV ViremiaIndications:CMV Viremia Given 02/18/2020 11:45 AM CDT 270 mg sodium chloride 0.9 %, flush, (SALINE FLUSH INJ) 10 mL, intravenous, As needed, patency, Starting on 02/18/20 at 2031, Indications: Maintain Patency of Indwelling Vascular CatheterIndications:Maintain Patency of Indwelling Vascular Catheter Given 02/18/2020 11:45 AM CDT 10 mL documented in this encounter Home Health Visit - Care Plan Visit Details Visit Type -SN Non-OASIS Sta rt of Care Discipline -Halfway Problems Problem Description Start Date Status Goals Interve ntions Medications Disciplines: Halfway Management of IV Medications 02/18/2020 Active - 1 problem intervention scheduled/document ed in this visit IV Therapy-Manag ement, Education, and Maintenance Disciplines: Halfway Teaching and learning needs for performing home IV therapy 02/18/2020 Active - 4 problem interventions scheduled/document ed in this visit Medications Disciplines: Halfway Management of home medications 02/18/2020 Active 1 goal linked to scheduled/documen mohsen intervention 2 goal interventions scheduled/document ed in this visit Monitor patient's vital signs every home health visit Disciplines: Halfway Monitor patient's vital signs every home health visit. 02/18/2020 Active 1 goal linked to scheduled/documen mohsen intervention 1 goal intervention scheduled/document ed in this visit Infection Prevention Disciplines: Halfway Infection Prevention 02/18/2020 Active 1 goal linked to scheduled/documen mohsen intervention 2 goal interventions scheduled/document ed in this visit Fall Precautions/S afety Concerns Disciplines: Halfway Alteration in safety 02/18/2020 Active 1 goal linked to scheduled/documen mohsen intervention 3 goal interventions scheduled/document ed in this visit [place] Precautions Disciplines: Halfway [place] Precautions 02/18/2020 Active 1 goal linked to [...] visit during episode of care Description: Home labeler to measure vital signs during every home health visit during episode of care. Monitor patient's vital signs every home health visit No Verbalize signs of infection Description: Verbalize signs of infection Infection Prevention No Demonstrate use of safety precautions Description: Demonstrate use of safety precautions Fall Precautions/Safety Concerns No Demonstrate knowledge of universal precautions Description: Demonstrate knowledge of universal precautions [place] Precautions No Interventions Intervention Associated Problem/Goal Status Variance Visit Notes IV Infusion Description: Instruct patient/caregiver on IV infusion Ganciclovir Problem:Medications Completed IV GANCICLOVIR PER ELASTOMERIC DEVICE TAUGHT TO PT AND FAMILY, FAMILY DEMONSTRATES UNDERSTANDING ON HOW TO ADMINISTER MEDICATION SAFELY Peripheral Line Description: Instruct patient/caregiver in how to gather supplies, how to restock IV supplies in the home, prepare supplies, administer IV medication and disconnect IV medication, inspecting solution and supplies before infusing, and waste disposal. Problem:IV Therapy-Management, Education, and Maintenance Completed PT VERBALIZES KNOWLEDGE OF HOW TO ORDER IV SUPPLIES Implanted Venous Access Device (PORT) Dormant Description: Instruct patient/caregiver in strategies to prevent infection:frequent/pro per hand-washing techniques, [place] precautions, Standard precautions, avoid crowds and persons with known infections, staying current with immunizations, s/s of infection, use of incentive spirometer, use of antibiotics and encourage adequate diet and fluid intake. Instruct patient/caregiver on how to recognize signs and symptoms of infection and when to notify HH nurse and/or physician. Problem:IV Therapy-Management, Education, and Maintenance Completed Patient and Caregiver instructed on frequent/proper hand-washing techniques, [place] precautions, Standard precautions, avoid crowds and persons with known infections, staying current with immunizations, s/s of infection, use of incentive spirometer, use of antibiotics and encourage adequate diet and fluid intake. Patient and Caregiver verbalize and demonstrate ability to perform home IV therapy. PICC Line Description: Skilled Nurse to instruct patient/caregiver on how to properly administer medication saline and heparin. Skilled Nurse to instruct patient/caregiver to administer IV medication as ordered including saline and heparin flushes. Reason for Therapy: CMV VIREMIA Problem:IV Therapy-Management, Education, and Maintenance Completed IV Management and Education Description: Skilled Nurse [...] infusion/flushes. Problem:IV Therapy-Management, Education, and Maintenance Completed Instruct on High Risk Medications Description: Instruct patient/caregiver on high-risk/high-alert medications, including: GANCICLOVIR, immunosuppressant, TACROLIMUS Problem:Medications Goal:Understand and follow medication therapy Completed Teaching High-risk/high-alert medications (specifically GANCICLOVIR, TACROLIMUS) with Patient and Caregiver. Instruct on medication delivery system Description: Instruct patient/caregiver on medication delivery system. Keep up to date medication list with patient Problem:Medications Goal:Understand and follow medication therapy Completed PT AND FAMILY INSTRUCTED ON HOW TO ADMINISTER GANCICLOVIR VIA PICC USING ELASTOMERIC DEVICE EVERY 12 HOURS Monitor Vital Signs Description: Monitor blood pressure, [...] Problem:Infection Prevention Goal:Verbalize signs of infection Completed PT DEMONSTRATES KNOWLEDGE OF INFECTION PREVENTION AND IDENTIFICATION PRACTICES Educate Family on Infection Prevention Description: Instructed family on signs and symptoms of infection IE: fever, odor, change in color, increased amount of drainage, purulent drainage, warmth. Problem:Infection Prevention Goal:Verbalize signs of infection Completed FAMILY DEMONSTRATES UNDERSTANDING ON HOW TO RECOGNIZE S/S OF INFECTION AND KNOWS HOW TO CONTACT [facility] Code Status Description: Discuss with patient/caregiver code status Problem:Fall Precautions/Safety Concerns Goal:Demonstrate use of safety precautions Completed High Fall Risk Precautions Description: Instruct patient/caregiver in methods to prevent falls Problem:Fall Precautions/Safety Concerns Goal:Demonstrate use of safety precautions Completed PT DEMONSTRATES KNOWLEDGE ON HOW TO PREVENT FALLS IN THE HOME [place] Fall Precautions Description: Assess patient safety Problem:Fall Precautions/Safety Concerns Goal:Demonstrate use of safety precautions Completed Aspects of Care Description: Instruct patient/caregiver on universal precautions and home infection control measures Problem:[place] Precautions Goal:Demonstrate knowledge of universal precautions Completed documented in this encounter Home Health Visit - Actions and Narratives Actions PT AND FAMILY INSTRUCTED ON IV ADMINISTRATION OF GANCICLOVIR EVERY 12 HOURS PER ELASTOMERIC DEVICE, PT AWARE OF FLUSHING PICC, PICC LINE MAINTAINANCE, INSPECTION FOR S/S OF INFECTION, INFILTRATION, CARE AND MANAGEMENT OF DRESSING, PT AND FAMILY KNOWS HOW TO CONTACT [facility] IF ISSUES ARISE documented in this encounter Care Teams Staff Sonographer Relationship Specialty Start Date End Date Guero Colunga DO PCP - General Internal Medicine 03/22/19 04/18/23 Amber Montesinos, SHAILESH Caster Helper Transplant 11/17/19 Jil Duncan MD Consulting Physician Infectious Diseases 01/10/20 documented as of this encounter
--- OUTSIDE RECORDS SUMMARY | 2024-10-28 06:22 | XMS_ITS | Encounter Summary ---
Author Organization [facility] Address [address] [place] [address] Phone Care Team Providers Care Rn Training Name Role Phone Guero Colunga Primary Care Provider [phone] Amber Montesinos RN Unavailable [phone] Jil Duncan MD Unavailable [phone] Reason for Visit * Auth/Cert Specialty Diagnoses / Procedures Referred By Contac t Referred To Contact Referral ID Status Reason Start Date Expiration Date Visits Re quested Visits Authorized [id number] 1 1 Encounter Details Date Type Department Care Team (Late st Contact Info) Description 02/22/2020 Home Care Visit [facility] [address] [place] [address] Rosalio Montana RN TRAVEL SCREENING CASE COMMUNICATION Social History Tobacco Use Types Packs/Day Years Used Date Smoking Tobacco: Never Smokeless Tobacco: Never Alcohol Use Standard Drinks/Week Comments Yes 0 (1 standard drink = 0.6 oz pur e alcohol) occassional Sex and Gender Information Value Date Recorded Sex Assigned at Not on file Legal Sex Male 6:28 AM [employer] Gender Identity Not on file Sexual Orientation Straight 08/22/2021 9: 23 AM CDT documented as of this encounter Plan of Treatment Scheduled Procedures Name Priority Associated Diagnoses Date/Ti me COLONOSCOPY Encounter for screening for colorectal cancer in high risk patient Family history of rectal cancer documented as of this encounter Visit Diagnoses Not on filedocumented in this encounter Care Teams Rn Training Relationship Specialty Start Date End Date CristineGeneeDO PCP - General Internal Medicine 03/22/19 04/18/23 Ambre Montesinos, RN Tactical Intelligence Officer Transplant 11/17/19 Jil Duncan MD Consulting Physician Infectious Diseases 01/10/20 documented as of this encounter
--- OUTSIDE RECORDS SUMMARY | 2024-10-28 06:22 | XMS_ITS | Encounter Summary ---
Author Organization [facility] Healthcare Address [address] [place] [address] Care Team Providers Care Designer Writer Name Role Phone Guero Colunga Primary Care Provider [phone] Amber Montesinos RN Unavailable [phone] Jil Duncan MD Unavailable [phone] Encounter Details Date Type Department Care Team (Latest Contact Info) Description 02/15/2020 2:02 PM CDT - 02/17/2020 6:59 PM CDT Hospital Encounter [address] [id number] Anita Gillespie MD [address] [facility] [address] [place] [address] Lawrence Bernardo MD [address] [facility] [address] [place] [address] 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); Cytomegalovirus (CMV) viremia (CMS/HCC) Discharge Disposition: Discharge to home, home health skilled care Social History Tobacco Use Types Packs/Day Years Used Date Smoking Tobacco: Never Smokeless Tobacco: Never Alcohol Use Standard Drinks/Week Comments Yes 0 (1 standard drink = 0.6 oz pur e alcohol) occassional Sex and Gender Information Value Date Recorded Sex Assigned at Not on file Legal Sex Male 6:28 AM [employer] Gender Identity Not on file Sexual Orientation [...] Reading Time Taken Comments Blood Pressure 102/60 02/17/2020 3:35 PM CDT Pulse 71 02/17/2020 3:35 PM CDT Temperature 36.7 ??C (98.1 ??F) 02/17/2020 3:35 PM CD T Respiratory Rate 18 02/17/2020 3:35 PM CDT Oxygen Saturation 97% 02/17/2020 3:35 PM CDT Inhaled Oxygen Concentration - - Weight 54.9 kg (121 lb) 02/17/2020 5:20 AM CDT Height 172.7 cm (5' 8 ) 02/15/2020 2:25 PM CDT Body Mass Index 18.4 02/15/2020 2:25 PM CDT documented in this encounter Discharge Diagnoses Diagnosis Other cytomegaloviral diseases (HCC) - OTHER CYTOMEGALOVIRAL DISEASES Post-transplant lymphoproliferative disorder (PTLD) (CODE) - POST-TRANSPLANT LYMPHOPROLIFERATIVE DISORDER (PTLD) Liver transplant failure (CMS/HCC) (HCC) - LIVER TRANSPLANT FAILURE Complications of transplanted liver Hepatic failure, unspecified without coma (HCC) - HEPATIC FAILURE, UNSPECIFIED WITHOUT COMA Surgical operation with transplant of whole organ as the cause of abnormal reaction of the patient, or of later complication, without mention of misadventure at the time of the procedure - SURGICAL OPERATION WITH TRANSPLANT OF WHOLE ORGAN THE CAUSE OF ABNORMAL REACTION OF THE PATIENT, Other primary thrombocytopenia (HCC) - OTHER PRIMARY THROMBOCYTOPENIA Other primary thrombocytopenia Unspecified place or not applicable - UNSPECIFIED PLACE OR NOT APPLICABLE Family history of malignant neoplasm of digestive organs - FAMILY HISTORY OF MALIGNANT NEOPLASM OF DIGESTIVE ORGANS Family history of diabetes mellitus - FAMILY HISTORY OF DIABETES MELLITUS Personal history of pulmonary embolism - PERSONAL HISTORY OF PULMONARY EMBOLISM Acquired absence of spleen - ACQUIRED ABSENCE OF SPLEEN Other acquired absence of organ documented in this encounter Discharge Summaries * Lawrence Bernardo MD - 02/17/2020 12:48 PM CDT Inpatient Discharge Summary BRIEF OVERVIEW Admitting Provider: Lawrence Bernardo MD Discharge Provider: Anita Gillespie MD Primary Care Physician at Discharge: Guero Colunga DO [phone] Admission Date: 02/15/2020 Discharge Date: 02/17/2020 Admission Location: [facility] Problems/Diagnoses: Active Problems: History of liver transplant (CMS/HCC) 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 DETAILS OF HOSPITAL STAY Presenting Problem/History of Present Illness: Mr Nichols is a pleasant 25yo M with hx of Refractory ITP s/p splenectomy 2012, autoimmune hepatitis s/p orthotopic liver transplant 03/30/2009, c/b PTLD (c- Myc, EBV +) s/p R-CHOP x 1 (2016), DA-EPOCH-R x 5 (09/2017-12/2017) with IT MTX w/ C3 10/2017, achieving CR in 12/2017, now with persistent quantifiable CMV viremia since 06/2019. Hospital Course: History of liver transplant (CMS/HCC) OLT??03/30/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 Followed by Dr. Alford. Continued home tacrolimus 0.5 mg BID. Liver team consulted. ?? 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 No evidence of recurrence though course complicated by multiple episodes of progressive adenopathy with spontaneous resolution. No evidence of PTLD on recent VIR biopsy. Followed byDr. Gillespie, on observation. ?? 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 Given persistent low-level CMV viremia despite PO therapy, pt admitted for IV ganciclovir as recommended by Dr. Gresham.? PICC placed as anticipated lengthy duration of treatment - to continue gancicylovir until CMV??DNA PCR negative??(monitor weekly s/p hospitalization) then may switch to Valcyte suppression. ConsultedTransplant ID service regarding plans for re-imaging liver lesion, need for CMV testing on VIR liver bx sample. Ordered CMV mutation panel and d/w lab medicine resident, needed recent CMV DNA quant PCR within the last 7 days so re-ordered this as well. CMV DNA 2.68 logIU/ml on 02/15 with viral load of 480, which is considered too low to test for CMV mutation analysis. ID to discuss with lab medicine to decideif CMV mutation analysis is to be pursued regardless. Continue Ganciclovir 270mg iv Q12. Case Mgmt consulted for HH/home infusion.? Liver opacity on imaging Suspected liver abscess on MRI Abd in early January. Completed 2 weeks Cipro+flagyl for the same without significant clinical change. VIR bx showed necrotic focus with chronic inflammation but no e/o atypical lymphoid proliferation. No cultures taken, and CMV PCR not tested on said sample. Will repeat MRI Liver w/wo con per ID recs. ?? Elevated LFTs Recently w/ elevated LFTs, now appear down-trending. Work-up w/ MRCP, biopsy + necrosis, felt possible liver abscess and has completed 14d course of Cipro/Flagyl.??Low suspicion r/t CMV viremia per liver team.??Trend LFTs Active Issues Requiring Follow-up: ID discussion w/ lab medicine regarding CMV mutation testing - whether or not to send test. Sample in storage for testing until 02/18. Test Results Pending at Discharge: Pending Labs Order Current Status CMV mutation detection Blood In process Operative Procedures Performed: none Other Procedures: none Pertinent Test Results: none Discharge Details Physical Exam at Discharge: Discharge Condition: good Pulse: 64 Resp: 16 BP: 109/69 Temp: 36.7 ??C (98.1 ??F) Weight: 54.9 kg (121 lb) Pertinent Exam Findings at Discharge: AO x 4, comfortable appearing, lungs CTABL, abdomen soft, nontender. Discharge Disposition: Discharge to home, home health skilled care Code Status at Discharge: FULL CODE Discharge Instructions: Discharge home today, to follow up as noted. HH RN, IV infusions to see. Will need weekly lab draws - CMV PCR Other Instructions Ambulatory referral to Home Health Service Line: Home Health and Infusion Primary disciplines requested: [facility] Services: Therapy to Eval/ Treat Infusion Services: IV Antibiotics/Other Medications Comment: iv Ganciclovir 5mg/kg q12h for 4 weeks; weekly lab draws for CMV DNA PCR Physician to follow patient's care (the person listed here will be responsible for signing ongoing orders): PCP Requested Start of Care Date: Tomorrow I attest that I or another qualified licensed provider saw the patient 90 days prior to or 30 days post admission and this face to face encounter meets the necessary Home Health requirements. The face to face encounter occurred on (date): 02/15/2020 The encounter with the patient was in whole, or in part, for the following medical condition, whichis the primary reason for home health care. (List medical condition): CMV Viremia, initiation of intravenous ganciclovir therapy Clinical findings that support the need for home care: Medical condition requiring skilled assessment/education I certify that my clinical findings support patient's homebound status. Homebound criteria met because: Requires assistance of another to leave home safely HOME INFUSION PLAN HOME INFUSION: [facility] inf p [phone] HOME HEALTH: [facility] home care p [phone] Discharge Medications: Current Medications TAKE these medications * tacrolimus 0.5 mg capsule Take 1 capsule (0.5 mg total) by mouth 2 (two) times a day Commonly known as: PROGRAF This medication is very important: It prevents organ rejection. * tacrolimus 0.5 mg capsule Commonly known as: PROGRAF This medication is very important: It prevents organ rejection. * tacrolimus 0.5 mg capsule TAKE 1 CAPSULE BY MOUTH TWICE A DAY Commonly known as: PROGRAF This medication is very important: It prevents organ rejection. ganciclovir 500 mg injection Infuse 5.4 mL (270 mg total) into a venous catheter every 12 (twelve) hours For: CMV Viremia Commonly known as: CYTOVENE This medication is very important: It prevents dangerous infection. * This list has 3 medication(s) that are the same as other medications prescribed for you. Read the directions carefully, and ask your doctor or other care provider to review them with you. Outpatient Follow-Up: Future Appointments Date Time Provider Department Center 02/18/2020 To Be Determined Cassi Joyce, RN [facility] None 03/01/2020 8:00 AM [facility] BNMR2 [facility] N MRI [facility] Main IMG 03/13/2020 7:00 AM LAB, CAM 7 ONC ONC LAB [facility]7 [facility] 03/13/2020 7:45 AM Anita Gillespie MD ONC [facility]7 [facility] Oncology 10/02/2020 8:00 AM [facility] Liver TXP [facility] documented in this encounter Discharge Instructions * Discharge Instr - Other Orders* Sonia Avalos RN - 02/16/2020 2:19 PM CDT HOME INFUSION PLAN HOME INFUSION: [facility] inf p [phone] HOME HEALTH: [facility] home care p [phone] documented in this encounter Medications at Time of Discharge ganciclovir (CYTOVENE) 500 mg injectionIndicat ions:CMV Viremia Infuse 5.4 mL (270 mg total) into a venous catheter every 12 (twelve) hours 02/16/2020 04/04/2020 tacrolimus (PROGRAF) 0.5 mg capsuleIndicatio ns:History of liver transplant (CMS/HCC) (HCC) Take 1 capsule (0.5 mg total) by mouth 2 (two) times a day 180 capsule 3 02/13/2019 03/20/2020 tacrolimus (PROGRAF) 0.5 mg capsule 10/13/2019 03/20/2020 tacrolimus (PROGRAF) 0.5 mg capsule TAKE 1 CAPSULE BY MOUTH TWICE A DAY 60 capsule 11 02/12/2020 05/27/2020 documented as of this encounter Ordered Prescriptions Prescription Sig Dispense Quantity Refills Last Filled Start Date End Date ganciclovir (CYTOVENE) 500 mg injectionIndicatio ns:CMV Viremia Infuse 5.4 mL (270 mg total) into a venous catheter every 12 (twelve) hours 02/16/2020 0 documented in this encounter Discharge Disposition Disposition Code Departure Means Destination Discharge to home, home health skilled care documented in this encounter Progress Notes * Theodore Gresham MD - 02/17/2020 11:10 AM CDT Hepatology/Gastroenterology Progress Note Interval History: Comfortable and no complaints Medications: enoxaparin, 40 mg, subcutaneous, Daily-2100 ganciclovir, 5 mg/kg, intravenous, Q12H PIPPA heparin flush (porcine), 5 mL, intra-catheter, Q12H PIPPA sodium chloride 0.9 %, 30 mL, swish & spit, QID sodium chloride 0.9%, 5-10 mL, intra-catheter, Q12H PIPPA tacrolimus, 0.5 mg, oral, BID Vitals: Vitals: 02/17/20 1005 BP: 109/69 Pulse: 64 Resp: 16 Temp: 36.7 ??C (98.1 ??F) SpO2: 99% Temp Min: 36.6 ??C (97.9 ??F) Max: 36.9 ??C (98.4 ??F) Pulse Min: 64 Max: 76 BP Min: 96/55 Max: 109/69 Resp Min: 16 Max: 20 SpO2 Min: 97 % Max: 99 % I/O last 2 completed shifts: In: 537 [P.O.:400; IV Piggyback:137] Out: - Physical Exam: General appearance: cooperative and no distress Eyes: anicteric Lungs: clear to auscultation bilaterally Heart: regular rate and rhythm Abdomen: soft, non-tender; bowel sounds normal; no masses, no organomegaly Extremities: no edema Neurologic: Alert and oriented x4, non-focal Lab/Radiology/Diagnostic Review: Laboratory review: Chemistry CMP: Lab Results Component Value Date ALBUMIN 3.7 02/17/2020 BUNSER 9 02/17/2020 CALCIUM 8.6 02/17/2020 CO2 25 02/17/2020 CHLORIDE 108 02/17/2020 CREATININE 0.72 (L) 02/17/2020 GLUCOSE 110 02/17/2020 POTASSIUM 4.7 02/17/2020 SODIUM 140 02/17/2020 BILITOT 0.4 02/17/2020 PROT 5.3 (L) 02/17/2020 ALT 32 02/17/2020 AST 43 02/17/2020 ALKPHOS 218 (H) 02/17/2020 Medical Decision Making: Cytomegalovirus (CMV) viremia (CMS/HCC) Assessment & Plan Persistent CMV viremia despite month long treatment with Valcyte Tolerating IV DHPG Continue treatment (and hopefully home treatment) Weekly CMV DNA PCR and will change back to PO when CMV DNA PCR negative Await results for assessment of DHPG resistance History of liver transplant (CMS/HCC) Assessment & Plan Continue home immunosuppression dosing The alk phos is noted and improved The ID team has requested repeat imaging of the liver The biopsy of this was reviewed and showed focal necrosis only Will review repeat MRI * Marilu Valdivia RN - 02/17/2020 10:47 AM CDT 02/17/20 1046 Discharge Summary Chart reviewed For Medical Necessity Does patient have a planned readmission to hospital planned? No Discharge Disposition Home with IV Services (RN visits) Equipment/Provider Needs Home Provider Services Needs Identified Home Care Agency Information Home Care Agency Type #1: Home Infusion Home Care Agency Name [facility] home infusion Home Care Agency Home Care Agency Contact Spoken to [facility] Order Faxed to has access to EPIC Discharge Additional Assistance Does the patient need discharge transport arranged? No Post Discharge Care Provider Post Discharge Care Plan DC Summary has been faxed to next level of care provider (see Follow Up Providers) * Lawrence Bernardo MD - 02/17/2020 7:39 AM CDT Oncology Hospitalist Progress Note Chief Complaint: Patient is a 25 y.o. male admitted for CMV Viremia and initiation of iv ganciclovir. Interval History: No acute events overnight. Feeling well today. No complaints. Active Treatment & Therapy Plans for Beka Nichols Justin J does not have any active plans of the following types: Oncology Chemotherapy Treatment, Oncology Treatment (2), Oncology Treatment (3), Oncology Supportive Care, Specialty Infusion Treatment, Blood Products, BMT, Hematology Allergies: No Known Allergies Medications: enoxaparin, 40 mg, subcutaneous, Daily-2099 ganciclovir, 5 mg/kg, intravenous, Q12H PIPPA heparin flush (porcine), 5 mL, intra-catheter, Q12H PIPPA sodium chloride 0.9 %, 30 mL, swish & spit, QID sodium chloride 0.9%, 5-10 mL, intra-catheter, Q12H PIPPA tacrolimus, 0.5 mg, oral, BID Objective Vitals: 24hr Min/Max: Temp Min: 36.6 ??C (97.9 ??F) Max: 36.9 ??C (98.4 ??F) Pulse Min: 71 Max: 76 BP Min: 96/55 Max: 101/57 Resp Min: 16 Max: 20 SpO2 Min: 97 % Max: 99 % Most Recent : Vitals: 02/16/20 1715 02/16/20 1910 02/16/20 2335 02/17/20 0520 BP: 96/55 100/52 101/57 98/55 BP Location: Right arm Right arm Right arm Right arm Patient Position: Lying Lying Sitting Lying Pulse: 71 72 76 71 Resp: 20 18 16 16 Temp: 36.8 ??C (98.2 ??F) 36.7 ??C (98.1 ??F) 36.9 ??C (98.4 ??F) 36.6 ??C (97.9 ??F) TempSrc: Oral Oral Oral Oral SpO2: 98% 97% 99% Weight: 54.9 kg (121 lb) 54.9 kg (121 lb) Height: Intake/Output Summary (Last 24 hours) at 02/17/2020 0739 Last data filed at 02/16/2020 1100 Gross per 24 hour Intake 537 ml Output -- Net 537 ml Physical Exam: General Appearance: Awake, alert, no acute distress Head: Normocephalic, atraumatic Eyes: Sclera anicteric, pupils equal Lungs: Clear to auscultation bilaterally, respirations unlabored Cardiovascular: Regular rate and rhythm, S1 and S2 normal, no murmur, rub or gallop, no peripheral edema Abdomen: Soft, non-tender to palpation Extremities: Extremities normal, atraumatic Skin: Warm and dry without rashes. Neurologic: Awake and alert, answering questions appropriately Psychosocial: Normal affect and mood Lab/Radiology/Diagnostic Review: Laboratory review: I have personally reviewed the following labs and my findings are CBC: Recent Labs Lab Units 02/17/20 0520 WBC K/cumm 8.6 HEMOGLOBIN g/dL 14.5 HEMATOCRIT % 40.8 MCV fL 92.5 MCH pg 32.9 MCHC g/dL 35.5 RDW CV % 15.4* RDWSD fL 52.4* MPV fL 10.2 NEUTROS ABS K/cumm 3.4 CMP: Recent Labs Lab Units 02/17/20 0520 SODIUM mmol/L 140 POTASSIUM PLASMA mmol/L 4.7 CO2 mmol/L 25 BUN SERUM mg/dL 9 GLUCOSE mg/dL 110 CREATININE mg/dL 0.72* CALCIUM mg/dL 8.6 CHLORIDE mmol/L 108 ALBUMIN g/dL 3.7 AST Units/L 43 ALT Units/L 32 ALK PHOS Units/L 218* BILIRUBIN TOTAL mg/dL 0.4 TOTAL PROTEIN g/dL 5.3* ANIONGAP mmol/L 7 LDH: Recent Labs Lab Units 02/15/20 1554 LACTATE DEHYDROGENASE (LDH) Units/L 319* Uric Acid: Recent Labs Lab Units 02/15/20 1554 URIC ACID mg/dL 5.7 PT: Recent Labs Lab Units 02/15/20 1554 PROTIME (PT) sec 12.2 PTT: Recent Labs Lab Units 02/15/20 1554 APTT sec 31 Radiology: Assessment/Plan History of liver transplant (CMS/HCC) 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 Followed by Dr. Gresham. -Cont tacro 0.5 mg BID -Liver team consulted ?? 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 S/p RCHOP x1 and DA-EPOCH-R x5 (completed 12/2017), IT-MTX C3 only d/t intracranial hypotension, w/ post-C2 NH, CR at end-of treatment. No e/o recurrence though course complicated by multiple episodes of progressive annika opathy w/ spontaneous resolution. -Followed by Dr. Gillespie, on observation - Med Onc consult inpatient ?? 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 Given persistent low-level CMV viremia despite PO therapy, pt admitted for IV ganciclovir as recommended by Dr. Gresham. ?? -PICC placement as anticipated lengthy duration of treatment - to continue gancicylovir until CMV DNA PCR negative (monitor weekly s/p hospitalization) then may switch to Valcyte suppression -Plan previously discussed w/ Dr. Duncan (see Dr. Gresham's note 02/14) - but after discussion with Dr Duncan and Dr Gresham today 02/15, will consult Transplant ID service regarding plans for re-imaging liver lesion, need for CMV testing on VIR liver bx sample. Ordered CMV mutation panel and d/w lab medicine resident, needed recent CMV DNA quant PCR within the last 7 days so re-ordered this as well. CMV DNA 2.68 logIU/ml on 02/15 with viral load of 480, which is considered too low to test for CMV mutation analysis. ID to discuss with lab medicine to decideif CMV mutation analysis is to be pursued regardless. Continue Ganciclovir 270mg iv Q12 -Case Mgmt consult for anticipated HH/home infusion ?? Liver opacity on imaging Suspected liver abscess on MRI Abd in early January Completed 2 weeks Cipro+flagyl for the same. VIR bx showed necrotic focus with chronic inflammation but no e/o atypical lymphoid proliferation. No cultures taken Will repeat MRI Liver w/wo con per ID recs. Elevated LFTs Recently w/ elevated LFTs, now appear down-trending. Work-up w/ MRCP, biopsy +necrosis, felt possible liver abscess and has completed 14d course of Cipro/Flagyl. Low suspicion r/t CMV viremia per liver team. -Trend LFTs Lawrence Bernardo MD * Marilu Davenport, CALLIE - 02/16/2020 2:03 PM CDT Nutrition Screen Note Pt. Screened for nutritional assessment secondary to BMI <18.5 Pt hx refractory ITP s/p splenectomy 2012, autoimmune hepatitis s/p orthotopic liver transplant 03/30/2009, c/b PTLD s/p R-CHOP x 1 (2016), DA-EPOCH-R x 5 (09/2017-12/2017) with IT MTX w/ C3 10/2017,achieving CR in 12/2017, now with persistent quantifiable CMV viremia since 06/2019. Admits for initiation of IV ganciclovir therapy. Past Medical History: Diagnosis Date ??? CMV (cytomegalovirus infection) (CMS/HCC) ??? Community acquired pneumonia of right middle lobe of lung (CMS/HCC) 01/06/2019 ??? Generalized enlarged lymph nodes Lymphadenopathy, [...] ??? PNA (pneumonia) ??? Pulmonary emboli (CMS/HCC) Past Surgical History: Procedure Laterality Date ??? BIOPSY LIVER N/A 02/02/2020 ??? BIOPSY LYMPH NODE SUPERFICIAL N/A 05/22/2014 ??? LIVER TRANSPLANT 1998 ??? SPLENECTOMY ??? US ABDOMEN COMPLETE W LIVER DUPLEX (C) Right 10/18/2018 ??? US GUIDED BIOPSY LIVER N/A 10/18/2018 ??? US GUIDED BIOPSY LYMPH NODE SUPERFICIAL N/A 10/13/2019 Anthropometrics Weight: 54.9 kg (121 lb) Admission Weight : 54.9 kg Weight Change: -4.08 kg (-9.00 lbs) IBW/kg (Calculated) : 69.9 kg Height: 172.7 cm (5' 8 ) Weight in (lb) to have BMI = 25: 164.1 BMI (Calculated): 18.4 Dietary Orders (From admission, onward) Start Ordered 02/15/20 1432 Adult Diet Regular Diet effective now Question: ([facility]) Diet type Answer: Regular 02/15/20 1434 Assessment / Impression: Pt screened for BMI on admit 18.4. Pt reports good appetite with stable weight. Denies n/v/c/d, taste changes, mouth sores. Does not show severe LBM wasting upon physical exam. Wt Readings from Last 15 Encounters: 02/15/20 54.9 kg (121 lb) 04/03/20 59 kg (130 lb) 01/17/20 56.9 kg (125 lb 6.4 oz) 01/31/20 59 kg (130 lb) 12/25/19 56.3 kg (124 lb 1.6 oz) 12/21/19 59 kg (130 lb) 11/22/19 57.2 kg (126 lb) 10/12/19 54.4 kg (120 lb) 10/04/19 56.5 kg (124 lb 9.6 oz) 10/04/19 57.7 kg (127 lb 3.2 oz) 06/21/19 61 kg (134 lb 6.4 oz) 03/22/19 58.6 kg (129 lb 3.2 oz) 03/10/19 59 kg (130 lb) 01/11/19 57.3 kg (126 lb 6.4 oz) 01/03/19 54.4 kg (120 lb) * Nancy Larsen RN - 02/16/2020 10:32 AM CDT 02/13/2020 1033 Information Information Obtained From Patient via phone call to room Referral Data Referral Reason Discharge Planning Prior to Admission Primary Caregiver Self Support System Parent Support system contact info (name, phone, availablity) mother [place] [phone] Home Care Services No Durable Medical Equipment None Living Arrangements Parent, sister and brother Type of Residence Private residence Steps in home? Yes, Outside of home Number of steps outside: 2 steps Financial Resource Payor Source Commercial Potential Discharge Needs Anticipated discharge level of care Private residence Pt/Family agrees with Anticipated Level of Care Yes Patient expects to be discharged to: Private residence Chart reviewed for medical necessity. Patient admitted for treatment of: 25 y.o. male admitted for persistent CMV viremia and initiation of intravenous ganciclovir therapy. Insurance verified as: [facility] Prescription Coverage: yes Preferred Pharmacy: [facility] PCP verified as: Dr. Colunga Transportation: per mother Admission Source: clinic referral Referrals: [facility] Home Infusion, informed Nyla with [facility] Infusion that patient is medically ready for discharge. UPDATE: home health can start care on Wednesday. Spoke to Sonia with [facility] Home Infusion. Patient to get doses for Wednesday inpatient prior to discharge, updated hospitalist Lawrence QUINTANILLA Additional Information/Options Discussed: Verified demographic information from the face sheet withthe patient. Explained role and purpose of dependency case manager. Denies the use of home health in the past - a list will be offered if recommended. Patient demonstrates no agency preference at this time. manager logistic to continue to follow for planning and referrals as needed. Discussed mobile pharmacy. Based on a comprehensive family assessment, assistance with instrumental activities of daily livingafter discharge will be provided by Brookly[facility]. Through the course of our work I determined that [facility]nn possesses the skill and ability to provide and monitor the care of the patient when he or she returns home. Brook[facility]nn has the capacity to provide/monitor/arrange for the care of the patient. Finally, we determined that [facility] has the knowledge of available resources and that combining them with their existing resources will suffice to sustain and care for the patient when he or she returns home. The treatment team is aware of this information. All are in agreement with the aftercare plan. Problem: Establish a safe discharge Goal: Implement a safe discharge plan with family support. * Lawrence Bernardo MD - 02/16/2020 7:29 AM CDT Oncology Hospitalist Progress Note Chief Complaint: Patient is a 25 y.o. male admitted for CMV Viremia and initiation of iv ganciclovir. Interval History: No acute events overnight. Feeling well today. No complaints. Active Treatment & Therapy Plans for Beka Nichols Justin J does not have any active plans of the following types: Oncology Chemotherapy Treatment, Oncology Treatment (2), Oncology Treatment (3), Oncology Supportive Care, Specialty Infusion Treatment, Blood Products, BMT, Hematology Allergies: No Known Allergies Medications: enoxaparin, 40 mg, subcutaneous, Daily-2100 ganciclovir, 5 mg/kg, intravenous, Q12H PIPPA heparin flush (porcine), 5 mL, intra-catheter, Q12H PIPPA lidocaine, 1-2 mL, subcutaneous, Once sodium chloride 0.9 %, 30 mL, swish & spit, QID sodium chloride 0.9%, 5-10 mL, intra-catheter, Q12H PIPPA tacrolimus, 0.5 mg, oral, BID Objective Vitals: 24hr Min/Max: Temp Min: 36.6 ??C (97.9 ??F) Max: 36.8 ??C (98.2 ??F) Pulse Min: 64 Max: 123 BP Min: 93/52 Max: 113/61 Resp Min: 16 Max: 18 SpO2 Min: 95 % Max: 99 % Most Recent : Vitals: 02/15/20 1425 02/15/20 1950 02/16/20 0410 02/16/20 0705 BP: 113/61 104/68 93/52 99/51 BP Location: Right arm Right arm Right arm Right arm Patient Position: Sitting Sitting Lying Lying Pulse: 72 71 123 64 Resp: 16 16 16 18 Temp: 36.8 ??C (98.2 ??F) 36.6 ??C (97.9 ??F) 36.6 ??C (97.9 ??F) 36.6 ??C (97.9 ??F) TempSrc: Oral Oral Oral Oral SpO2: 98% 99% 97% 95% Weight: 54.9 kg (121 lb) Height: 172.7 cm (5' 8 ) Intake/Output Summary (Last 24 hours) at 02/16/2020 0729 Last data filed at 02/15/2020 2141 Gross per 24 hour Intake 426 ml Output -- Net 426 ml Physical Exam: General Appearance: Awake, alert, no acute distress Head: Normocephalic, atraumatic Eyes: Sclera anicteric, pupils equal Lungs: Clear to auscultation bilaterally, respirations unlabored Cardiovascular: Regular rate and rhythm, S1 and S2 normal, no murmur, rub or gallop, no peripheral edema Abdomen: Soft, non-tender to palpation Extremities: Extremities normal, atraumatic Skin: Warm and dry without rashes. Neurologic: Awake and alert, answering questions appropriately Psychosocial: Normal affect and mood Lab/Radiology/Diagnostic Review: Laboratory review: I have personally reviewed the following labs and my findings are CBC: Recent Labs Lab Units 02/16/20 0417 02/09/20 1252 WBC K/cumm 7.6 < > 6.5 HEMOGLOBIN g/dL 14.5 < > 15.2 HEMATOCRIT % 41.8 < > 44.2 MCV fL 93.9 < > 94.0 MCH pg 32.6 < > 32.3 MCHC g/dL 34.7 < > 34.4 RDW CV % 15.5* < > 15.3* RDWSD fL 53.5* < > -- MPV fL 9.8 < > 9.8 NEUTROS ABS K/cumm 2.4 < > -- NEUTROS ABS CELLS/UL cells/uL -- -- 852* < > = values in this interval not displayed. CMP: Recent Labs Lab Units 02/16/20 0417 SODIUM mmol/L 141 POTASSIUM PLASMA mmol/L 4.6 CO2 mmol/L 26 BUN SERUM mg/dL 10 GLUCOSE mg/dL 94 CREATININE mg/dL 0.77* CALCIUM mg/dL 8.9 CHLORIDE mmol/L 108 ALBUMIN g/dL 3.8 AST Units/L 41 ALT Units/L 30 ALK PHOS Units/L 231* BILIRUBIN TOTAL mg/dL 0.5 TOTAL PROTEIN g/dL 5.3* ANIONGAP mmol/L 7 LDH: Recent Labs Lab Units 02/15/20 1554 LACTATE DEHYDROGENASE (LDH) Units/L 319* Uric Acid: Recent Labs Lab Units 02/15/20 1554 URIC ACID mg/dL 5.7 PT: Recent Labs Lab Units 02/15/20 1554 PROTIME (PT) sec 12.2 PTT: Recent Labs Lab Units 02/15/20 1554 APTT sec 31 Radiology: Assessment/Plan History of liver transplant (CMS/HCC) 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 Followed by Dr. Gresham. -Cont tacro 0.5 mg BID -Liver team consulted ?? 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 S/p RCHOP x1 and DA-EPOCH-R x5 (completed 12/2017), IT-MTX C3 only d/t intracranial hypotension, w/ post-C2 NH, CR at end-of treatment. No e/o recurrence though course complicated by multiple episodes of progressive annika opathy w/ spontaneous resolution. -Followed by Dr. Gillespie, on observation - Med Onc consult inpatient ?? 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 Given persistent low-level CMV viremia despite PO therapy, pt admitted for IV ganciclovir as recommended by Dr. Gresham. ?? -PICC placement as anticipated lengthy duration of treatment - to continue gancicylovir until CMV DNA PCR negative (monitor weekly s/p hospitalization) then may switch to Valcyte suppression -Plan previously discussed w/ Dr. Duncan (see Dr. Gresham's note 02/14) - but after discussion with Dr Duncan and Dr Gresham today 02/15, will consult Transplant ID service regarding plans for re-imaging liver lesion, need for CMV testing on VIR liver bx sample. Ordered CMV mutation panel --> d/w lab medicine resident, needs recent CMV DNA quant PCR within the last 7 days, which we are just about out of, so re-ordered this as well. Continue Ganciclovir 270mg iv Q12 -Case Mgmt consult for anticipated HH/home infusion ?? Elevated LFTs Recently w/ elevated LFTs, now appear down-trending. Work-up w/ MRCP, biopsy +necrosis, felt possible liver abscess and has completed 14d course of Cipro/Flagyl. Low suspicion r/t CMV viremia per liver team. -Trend LFTs Lawrence Bernardo MD documented in this encounter H&P Notes * Lawrence Bernardo MD - 02/15/2020 3:09 PM CDT Oncology Hospitalist History & Physical Chief Complaint: Patient is a 25 y.o. male admitted for persistent CMV viremia and initiation of intravenous ganciclovir therapy. Subjective HPI: Mr Nichols is a pleasant 25yo M with hx of Refractory ITP s/p splenectomy 2012, autoimmune hepatitis s/p orthotopic liver transplant 03/30/2009, c/b PTLD (c- Myc, EBV +) s/p R-CHOP x 1 (2016), DA-EPOCH-R x 5 (09/2017-12/2017) with IT MTX w/ C3 10/2017, achieving CR in 12/2017, now with persistent quantifiable CMV viremia since 06/2019. His last CMV DNA quantitative PCR on 02/09/2020 had a level of 3.57 logIU/ml. Seen recently in clinic with ID and today with Hepatology services, who reiterated concerns regarding the same, and decided on admission for initiation of intravenous ganciclovir therapy given inability to suppress viremia with oral valgancyclovir therapy. Notably, he underwent a cervical LN bx 10/13/19 which showed which showed an EBV -ve lymph node. He also recently completed a course of ciprofloxacin and metronidazole for a possible abscess notedon MRI (Needle core bx by MATTHEW 02/02/20 showed no pus but there was necrosis w/ chronic inflammation of hepatic parenchyma, no e/o atypical lymphoid proliferation). On arrival to the floor, Mr Nichols has no complaints. Denies fevers, chills, headaches, shortness ofbreath. Denies abdominal discomfort, nausea, vomiting or diarrhea. No sick contacts at home. Is anxious to be discharged soon due to concern regarding COVID-19 in hospital. His vitals are stable. Cancer Staging No matching staging information was found for the patient. Oncology History PMH: 1. Liver transpant x 2 for acute liver failure (autoimmune hepatitis), 1998 2. 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 CMV (cytomegalovirus infection) (CMS/HCC) ??? Community acquired pneumonia of right middle lobe of lung (CMS/HCC) 01/06/2019 ??? Generalized enlarged lymph nodes Lymphadenopathy, [...] ??? PNA (pneumonia) ??? Pulmonary emboli (CMS/HCC) Past Surgical History: Procedure Laterality Date ??? BIOPSY LIVER N/A 02/02/2020 ??? BIOPSY LYMPH NODE SUPERFICIAL N/A 05/22/2014 ??? LIVER TRANSPLANT 1998 ??? SPLENECTOMY ??? US ABDOMEN COMPLETE W LIVER DUPLEX (C) Right 10/18/2018 ??? US GUIDED BIOPSY LIVER N/A 10/18/2018 ??? US GUIDED BIOPSY LYMPH NODE SUPERFICIAL N/A 10/13/2019 No Known Allergies Medications Prior to Admission Medication Sig Dispense Refill Last Dose ??? ciprofloxacin (Cipro) 500 mg tablet Take 1 tablet (500 mg total) by mouth 2 (two) times a day for 14 days 28 tablet 0 Taking ??? metroNIDAZOLE (Flagyl) 500 mg tablet Take 1 tablet (500 mg total) by mouth 3 (three) times a day for 14 days 42 tablet 0 Taking ??? tacrolimus (PROGRAF) 0.5 mg capsule Take 1 capsule (0.5 mg total) by mouth 2 (two) times a day 180 capsule 3 Taking ??? tacrolimus (PROGRAF) 0.5 mg capsule Taking ??? tacrolimus (PROGRAF) 0.5 mg capsule TAKE 1 CAPSULE BY MOUTH TWICE A DAY 60 capsule 11 ??? valGANciclovir (VALCYTE) 450 mg tablet Take 2 tablets (900 mg total) by mouth 2 (two) times a day 120 tablet 0 Taking Current Facility-Administered Medications: ? ? aluminum & magnesium ofckiqjrs-qcakyjlnjjz-kvknujgzegdldjl-lidocaine (MAGIC MOUTHWASH) suspension 1-1-1, 15 mL, swish & swallow, QID PRN, Mary Araya, PHOTONIC LABORATORY TECHNICIAN ??? bacitracin-polymyxin B (POLYSPORIN) 500-10,000 unit/gram ointment tube 1 application, 1 application, topical, Q4H PRN, Mary Araya, PHOTONIC LABORATORY TECHNICIAN ??? camphor-menthoL (SARNA) 0.5-0.5 % lotion, , topical, Q2H PRN, Mary Araya, PHOTONIC LABORATORY TECHNICIAN ??? enoxaparin (LOVENOX) syringe 40 mg, 40 mg, subcutaneous, Daily-2100, Mary Araya, PHOTONIC LABORATORY TECHNICIAN ??? heparin 10 unit/mL flush 20-50 Units, 2-5 mL, intra-catheter, PRN, Mary Araya, PHOTONIC LABORATORY TECHNICIAN ??? heparin 10 unit/mL flush 50 Units, 5 mL, intra-catheter, Q12H PIPPA, Mary Araya, PHOTONIC LABORATORY TECHNICIAN ??? lidocaine PF (XYLOCAINE) 10 mg/mL (1 %) preservative free injection 10-20 mg, 1-2 mL, subcutaneous, Once, Mary Araya, PHOTONIC LABORATORY TECHNICIAN ??? loperamide (IMODIUM) capsule 2 mg, 2 mg, oral, Q1H PRN, Mary Araya, PHOTONIC LABORATORY TECHNICIAN ??? magnesium sulfate 4 g/100 mL in water (premix) 4 g, 4 g, intravenous, Q4H PRN, Mary Araya, PHOTONIC LABORATORY TECHNICIAN ??? magnesium sulfate 6 g in sodium chloride 0.9% 250 mL IVPB, 6 g, intravenous, Q4H PRN, Mary Cortez, PHOTONIC LABORATORY TECHNICIAN ??? polyvinyl alcohol-povidone (REFRESH CLASSIC) 1.4-0.6 % ophthalmic solution 2 drop, 2 drop, eacheye, Q4H PRN, Mary Araya, PHOTONIC LABORATORY TECHNICIAN ??? potassium chloride 40 mEq/100 mL in sterile water (premix) 40 mEq, 40 mEq, intravenous, Q4H PRN, Mary Araya, PHOTONIC LABORATORY TECHNICIAN ??? potassium chloride ER (KLOR-CON) extended release tablet 40 mEq, 40 mEq, oral, Q4H PRN, Mary Araya, PHOTONIC LABORATORY TECHNICIAN ??? pramoxine-zinc oxide (TRONOLANE) 1-5 % rectal cream, , rectal, TID PRN, Mary Araya, PHOTONIC LABORATORY TECHNICIAN ??? sodium chloride (OCEAN) 0.65 % nasal spray 2 spray, 2 spray, each nostril, Q1H PRN, Mary Araya, PHOTONIC LABORATORY TECHNICIAN ? ? sodium chloride 0.9 % irrigation 30 mL, 30 mL, swish & spit, QID, Mary Araya, PHOTONIC LABORATORY TECHNICIAN ??? sodium chloride 0.9% flush 5-10 mL, 5-10 mL, intra-catheter, Q12H PIPPA, Mary Araya, PHOTONIC LABORATORY TECHNICIAN ??? sodium chloride 0.9% flush 5-20 mL, 5-20 mL, intra-catheter, PRN, Mary Araya, PHOTONIC LABORATORY TECHNICIAN ??? sodium chloride 0.9% IVPB 0-250 mL, 0-250 mL, intravenous, PRN, Mary Araya, PHOTONIC LABORATORY TECHNICIAN ??? tacrolimus (PROGRAF) capsule 0.5 mg, 0.5 mg, oral, BID, Lawrence Bernardo MD ??? white petrolatum-mineral oiL (EUCERIN) cream, , topical, Q2H PRN, Mary Araya, AIDEN Family History Problem Relation Age of Onset ??? Rectal cancer Mother Rectal cancer - (Added by TW Conv) ??? Diabetes type II Sister Family history of type 2 diabetes mellitus - (Added by TW Conv) ??? Anesthesia problems Other Social History Tobacco Use ??? Smoking status: Never Smoker ??? Smokeless tobacco: Never Used Substance Use Topics ??? Alcohol use: Yes Comment: occassional Review of Systems Review of systems per HPI and otherwise all other systems are negative Objective Vitals: Arrival Vitals [02/15/20 1425] Temp 36.8 ??C (98.2 ??F) Pulse 72 Resp 16 BP 113/61 SpO2 98 % Temp src Oral Heart Rate Source Monitor Patient Position Sitting BP Location Right arm FiO2 (%) 24hr Min/Max: Temp Min: 36.8 ??C (98.2 ??F) Max: 36.8 ??C (98.2 ??F) Pulse Min: 72 Max: 72 BP Min: 113/61 Max: 113/61 Resp Min: 16 Max: 16 SpO2 Min: 98 % Max: 98 % Most Recent : Vitals: 02/15/20 1425 BP: 113/61 BP Location: Right arm Patient Position: Sitting Pulse: 72 Resp: 16 Temp: 36.8 ??C (98.2 ??F) TempSrc: Oral SpO2: 98% Weight: 54.9 kg (121 lb) No intake/output data recorded. Physical exam: General Appearance: Awake, alert, no acute distress Head: Normocephalic, atraumatic Eyes: Sclera anicteric, pupils equal Lungs: Clear to auscultation bilaterally, respirations unlabored Cardiovascular: Regular rate and rhythm, S1 and S2 normal, no murmur, rub or gallop, no peripheral edema Abdomen: Soft, non-tender to palpation Extremities: Extremities normal, atraumatic Skin: Warm and dry without rashes. Neurologic: Awake and alert, answering questions appropriately Psychosocial: Normal affect and mood Lab/Radiology/Diagnostic Review: CBC: Recent Labs Lab Units 02/09/20 1252 WBC Thousand/uL 6.5 HEMOGLOBIN g/dL 15.2 HEMATOCRIT % 44.2 MCV fL 94.0 MCH pg 32.3 MCHC g/dL 34.4 RDW CV % 15.3* MPV fL 9.8 NEUTROS ABS CELLS/UL cells/uL 852* CMP: Recent Labs Lab Units 02/09/20 1252 SODIUM mmol/L 140 POTASSIUM mmol/L 4.2 CO2 mmol/L 26 BUN SERUM mg/dL 10 GLUCOSE mg/dL 97 CREATININE mg/dL 0.86 CALCIUM mg/dL 9.5 CHLORIDE mmol/L 105 ALBUMIN g/dL 4.1 AST U/L 32 ALT U/L 35 ALK PHOS U/L 330* BILIRUBIN TOTAL mg/dL 0.5 LDH: Uric Acid: PT: PTT: Assessment/Plan History of liver transplant (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 Followed by Dr. Gresham. 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 S/p RCHOP x1 and DA-EPOCH-R x5 (completed 12/2017), IT-MTX C3 only d/t intracranial hypotension, w/ post-C2 NH, CR at end-of treatment. No e/o recurrence though course complicated by multiple episodes of progressive annika opathy w/ spontaneous resolution. -Followed by Dr. Gillespie, on observation - Med Onc consult inpatient Cytomegalovirus (CMV) viremia (CMS/HCC) CMV DNA positivity since at least April [...] -Case Mgmt consult for anticipated HH/home infusion Elevated LFTs Recently w/ elevated LFTs, now appear down-trending. Work-up w/ MRCP, biopsy +necrosis, felt possible liver abscess and has completed 14d course of Cipro/Flagyl. Low suspicion r/t CMV viremia per liver team. -Trend LFTs Lawrence Bernardo MD documented in this encounter Procedure Notes * Batool Pacheco, RN - 02/15/2020 5:35 PM CDT Vascular Access Nurse: Procedure Note Summary of treatment provided to patient today is as follows : . Bedside Procedure Time out/Checklist (last 4 hours) Pre-Op Checklist Row Name 02/15/20 1728 02/15/20 2863 Patient Belongings at Bedside Belongings at Bedside -- Vision;Clothing;Electronic devices;Money/credit card -LE Vision - Corrective Lenses -- Glasses -LE Clothing -- Pants;Shirt;Socks;Footwear;Underpants;Pajamas -LE Patient Electronics -- Cell phone;Laptop;Rl device -LE Patient Belongings Given to Family Belongings Given to Family -- None -LE Patient Belongings Sent to Safe Belongings Sent to Safe -- None -LE Patient Medications Medications brought by patient? -- No -LE Patient/Chart Verification Patient ID Verified Verbal;Armband - -- ID Band Applied Yes - -- Arm Bands On Allergies - -- Advance Directive -- Patient refused information -LE Pre-op Lab/Test Results Available In chart - -- Site Marked Yes - -- Procedure Verification Correct Patient Yes - -- Correct Site Yes - -- Correct Procedure Yes - -- Correct Laterality Not applicable - -- Anesthesia Verification Antibiotic Status Not applicable - -- User Shah (r) = Recorded By, (t) = Taken By, (c) = Cosigned By Initials Name RIP Arreola RN Batool [employer] insurance sales agent Access Documentation (last 4 hours) [facility] Additional Procedures Row Name 02/15/20 1729 PICC Screening Questionnaire Order written on the chart for PICC insertion or placement? Y - Information form/Consent Obtained from POA/ Family N - Is there an order from Renal giving ok to place PICC line? N/A - Are there any location restrictions? N - Does the patient have history of DVT or SVC syndrome? N - Does the patient currently have blood clots in chest / arms? N - Review of all IV meds/drips completed Yes - Patient allergies reviewed? Y - Labs Reviewed if applicable INR;Blood Cultures;Platelet count;Creatinine - Procedures Line Type PICC single - Time in 1709 - Time out 1744 - Time Calculation (min) 35 min - Vascular Access Procedures PICC line assessment;PICC line placement;PICC dressing change;Education PICC/Midline - PICC Single Lumen 02/15/20 Non-tunneled Power Left Basilic;Upper arm Line Properties Placement Date: 02/15/20 - Placement Time: 1729 - Catheter Time Out Checklist Completed: Yes - Hand Hygiene Performed: Yes - Site Prep: Chlorhexidine - Site Prep Agent has Completely Dried Before Insertion: Yes - All 5 Sterile Barriers or Appropriate Barriers Used (Gloves, Gown, Cap, Mask, Large Sterile Drape): Yes - Local Anesthetic: Injectable -, 1% 1cc lidocaine CVC Type: Non-tunneled - Power injectable: Power - Lumen # 1: #1 Purple, - Size (Fr): 4 - Orientation: Left - Location: Basilic;Upper arm - Technique: Modified seldinger;Internal stiffener stylet removed easily;Ultrasound used to locate and cannulate vein;Standard insertion technique with peel away sheath - Lot #: [id number] - Expiration Date: 10/31/20 - Trimmed Length (cm) : 3 cm- Line Tip Location : Central - Initial Extremity Circumference (cm): 26 cm - Circumference Reference Point: 4 -JH Initial External Length Catheter (cm): 0 cm - Placement Verification: Blood return;ECG - Line Secured by : Securement device - Inserted by: marcus frias rn - Assisted By: vineet billings - Insertion attempts: 1 - Patient Tolerance: Tolerated well - Site Assessment Clean and dry - Dressing Type CHG Dressing - Dressing Status Clean, dry, intact - Lumen #1 Status Blood return noted;Flushes easily;Capped - Needleless;Capped - Disinfectant;Saline locked - Line Necessity Reason Needed upon discharge for correction use - User Shah (r) = Recorded By, (t) = Taken By, (c) = Cosigned By Initials Name Batool Pacheco RN Plan: Follow up: Batool Pacheco RN documented in this encounter Consult Notes * Nishant Gallardo MD - 02/16/2020 12:45 PM CDTAssociated Order(s): IP CONSULT TO GASTROENTEROLOGY Gastroenterology Consult Subjective Patient is a 25 y.o. male with chief complaint of CMV viremia . Reason for consult: Pt of Dr. Gresham, OLT 2008, admitted for persistent CMV viremia Requesting Provider: Dr. Gillespie HPI: Mr. 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 His mostrecent chemotherapy was Dec 2017 (dose adjusted EPOCH-R). More recently, he had a right cervical LNthat was EBV positive with follicular hyperplasia, he was admitted to the hospital for arrangement of IV ganciclovir and PICC line placement. He is currently asymptomatic. Denies of abdominal pain, nausea, vomiting, fevers, chills. He was seen in our clinic recently and found to have cervical lymph node enlargement. Biopsy in October 2019was unremarkable for any evidence of lymphoproliferative disorder and no clonal B-cell or immunophenotypically abnormal T cell population identified by flow cytometry. His liver MRI recently obtained at 2020 which was notable new 2.7 cm peripherally hyperenhancing lesion with progressive central enhancement along with internal areas of necrosis, located within the transplant liver segment IVb. Although this lesion could represent hepatic involvement of patient's known post transplant lymphoproliferative disorder, the appearance is somewhat atypical for Lymphoma. He underwent liver biopsy which showed necrosis, surrounded by organizational changes and chronic inflammation, involving hepatic parenchyma, Negative for fungal organisms and AFB, Negative for involvement by atypical lymphoid proliferation. LFTs normal with exception for ALP 231. CMV 3.57 log. Past Medical History: Diagnosis Date ??? CMV (cytomegalovirus infection) (CMS/HCC) ??? Community acquired pneumonia of right middle lobe of lung (CMS/HCC) 01/06/2019 ??? Generalized enlarged lymph nodes Lymphadenopathy, [...] ??? PNA (pneumonia) ??? Pulmonary emboli (CMS/HCC) Past Surgical History: Procedure Laterality Date ??? BIOPSY LIVER N/A 02/02/2020 ??? BIOPSY LYMPH NODE SUPERFICIAL N/A 05/22/2014 ??? LIVER TRANSPLANT 1999 ??? SPLENECTOMY ??? US ABDOMEN COMPLETE W LIVER DUPLEX (C) Right 10/18/2018 ??? US GUIDED BIOPSY LIVER N/A 10/18/2018 ??? US GUIDED BIOPSY LYMPH NODE SUPERFICIAL N/A 10/13/2019 Medications Prior to Admission Medication Sig Dispense Refill Last Dose ??? [] ciprofloxacin (Cipro) 500 mg tablet Take 1 tablet (500 mg total) by mouth 2 (two) times a day for 14 days 28 tablet 0 Taking ??? [] metroNIDAZOLE (Flagyl) 500 mg tablet Take 1 tablet (500 mg total) by mouth 3 (three) times a day for 14 days 42 tablet 0 Taking ??? tacrolimus (PROGRAF) 0.5 mg capsule Take 1 capsule (0.5 mg total) by mouth 2 (two) times a day 180 capsule 3 Taking ??? tacrolimus (PROGRAF) 0.5 mg capsule Taking ??? tacrolimus (PROGRAF) 0.5 mg capsule TAKE 1 CAPSULE BY MOUTH TWICE A DAY 60 capsule 11 ??? valGANciclovir (VALCYTE) 450 mg tablet Take 2 tablets (900 mg total) by mouth 2 (two) times a day 120 tablet 0 Taking No Known Allergies Social History Tobacco Use ??? Smoking status: Never Smoker ??? Smokeless tobacco: Never Used Substance Use Topics ??? Alcohol use: Yes Comment: occassional Family History Problem Relation Age of Onset ??? Rectal cancer Mother Rectal cancer - (Added by MARIN Conv) ??? Diabetes type II Sister Family history of type 2 diabetes mellitus - (Added by MARIN Conv) ??? Anesthesia problems Other Social History Socioeconomic History ??? Marital status: Single Spouse name: Not on file ??? Number of children: Not on file ??? Years of education: Not on file ??? Highest education level: Not on file Occupational History ??? Not on file Social Needs ??? Financial resource strain: Not on file ??? Food insecurity Worry: Not on file Inability: Not on file ??? Transportation needs Medical: Not on file Non-medical: Not on file Tobacco Use ??? Smoking status: Never Smoker ??? Smokeless tobacco: Never Used Substance and Sexual Activity ??? Alcohol use: Yes Comment: occassional ??? Drug use: Not Currently ??? Sexual activity: Defer Lifestyle ??? Physical activity Days per week: Not on file Minutes per session: Not on file ??? Stress: Not on file Relationships ??? Social connections Talks on phone: Not on file Gets together: Not on file Attends nondenominational service: Not on file Active member of club or organization: Not on file Attends meetings of clubs or organizations: Not on file Relationship status: Not on file ??? Intimate partner violence Fear of current or ex partner: Not on file Emotionally abused: Not on file Physically abused: Not on file Forced sexual activity: Not on file Other Topics Concern ??? Not on file Social History Narrative Living Situation: Residential institution 10/05/17 (Added by MARIN Conv) Review of Systems: Review of systems per HPI and otherwise all other systems are negative Vitals: 24hr Min/Max: Temp Min: 36.6 ??C (97.9 ??F) Max: 36.8 ??C (98.2 ??F) Pulse Min: 64 Max: 123 BP Min: 93/52 Max: 113/61 Resp Min: 16 Max: 18 SpO2 Min: 95 % Max: 99 % Most Recent : Vitals: 02/16/20 0705 BP: 99/51 Pulse: 64 Resp: 18 Temp: 36.6 ??C (97.9 ??F) SpO2: 95% I/O last 2 completed shifts: In: 426 [P.O.:300; IV Piggyback:126] Out: - I/O this shift: In: 137 [IV Piggyback:137] Out: - Objective Physical Exam: General: awake, alert, NAD HEENT: NCAT, no scleral icterus Neck: supple CV: RRR, Pulm: Breathing unlabored Abd: S, NT, ND, NABS Ext: No edema, Neuro: No focal deficits Skin: Warm, dry, no rashes Psych: Normal affect, pleasant Lab/Radiology/Diagnostic Review: Lab Results Component Value Date WBC 7.6 02/16/2020 HGB 14.5 02/16/2020 HCT 41.8 02/16/2020 MCV 93.9 02/16/2020 LABPLAT 260 02/16/2020 Lab Results Component Value Date GLUCOSE 94 02/16/2020 CALCIUM 8.9 02/16/2020 SODIUM 141 02/16/2020 POTASSIUM 4.6 02/16/2020 CO2 26 02/16/2020 CHLORIDE 108 02/16/2020 BUNSER 10 02/16/2020 CREATININE 0.77 (L) 02/16/2020 Lab Results Component Value Date ALT 30 02/16/2020 AST 41 02/16/2020 ALKPHOS 231 (H) 02/16/2020 BILITOT 0.5 02/16/2020 Lab Results Component Value Date IRON 16 (L) 04/04/2017 TIBC 202 (L) 04/04/2017 FERRITIN 366 04/04/2017 No results found for: OCCULTBLD No results found for: AMYLASE Lab Results Component Value Date LIPASE 27 10/19/2017 Lab Results Component Value Date HEPAIGM Nonreactive 11/30/2017 HEPBCAB Nonreactive 11/30/2017 HEPCAB Nonreactive 11/30/2017 Lab Results Component Value Date AFP 2.4 02/02/2020 Assessment /Plan Mr. 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 His most recent chemotherapy was Dec 2017 (dose adjusted EPOCH-R). More recently, he had a rightcervical LN that was EBV positive with follicular hyperplasia, he was admitted to the hospital for arrangement of IV ganciclovir and PICC line placement. 1. 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 Duncan), there is no evidence of CMV tissue invasive but with ongoing viremia while on Valcyte, we would consider switching to IV ganciclovir with hope this would suppress his CMV viremia. - Please arrange for out patient/home IV supply, then he can be discharged home. - Continue home dose of tacro 0.5 mg BID - Daily Trough level The Hepatology service will continue to follow. If additional questions or concerns, the Hepatologyservice can be contacted via the central GI phone tree at [phone], option 2. From 5pm to 7:30am Wednesday through Wednesday, and from Wednesday 5pm to Wednesday 7:30am, the pensionholder information clerk GI fellow covering the Liver service can be reached at [phone]. Nishant Gallardo MD Gastroenterology Fellow [facility] in [place] Cosigned by Theodore Gresham MD at 02/16/2020 1:32 PM CDT Associated attestation - Theodore Gresham MD - 02/16/2020 1:32 PM CDT I have seen and examined the patient on 02/16/20. I agree with the findings and plan of care as documented in the resident's/fellow's note and as discussed with the resident/fellow. Please see my note from 2019. Receiving HPG 5 mg/kg Q12 hours; CMV resistance testing to be sent, and transplant ID to see patient. Continue home immunosuppression. The plan is to continue DHPG (as outpatient) until CMV DNA negative and then switch back to suppressive oral therapy (presuming CMV resistance not found). Alk phos i mproving. * Blank Palencia, DO - 02/16/2020 12:43 PM CDTAssociated Order(s): CONSULT TO TRANSPLANT INFECTIOUS DISEASE Infectious Disease Initial Consult Note Infectious Disease Team: Transplant Contact Information: Please see [facility] Treatment Team listing for up-to-date contact information. Requesting Physician: Anita Gillespie MD Reason for Consult: Diagnostic and treatment recommendations, as well as assistance with follow up care. Subjective Chief Complaint: Ganciclovir initiation HPI: The patient is a 25 y.o. male with PMH of Refractory ITP s/p splenectomy 2012, autoimmune hepatitiss/p orthotopic liver transplant 03/30/2009, c/b PTLD (c-Myc, EBV +) s/p R-CHOP x 1 (2016), DA-EPOCH-R x 5 (09/2017-12/2017) with IT MTX w/ C3 10/2017, achieving CR in 12/2017, now with persistent quantifiable CMV viremia since 06/2019 and here for ganciclovir initiation. His last CMV DNA quantitative PCR on 02/09/2020 had a level of 3.57 logIU/ml. Per outpatient notes,is not thought to have tissue invasive disease. Has tried oral medications but continues to have viremia. Pt was started on ganciclovir 02/15/20. He also recently completed a course of ciprofloxacin and metronidazole for a possible abscess notedon MRI (Needle core bx by VIR 02/02/20 showed no pus but there was necrosis w/ chronic inflammation of hepatic parenchyma, no e/o atypical lymphoid proliferation). LFTs now improved. Today pt reports that he is feeling well. Denies fevers, chills, nausea, vomiting, diarrhea, abdominal pain, change in appetite. Pt says that he did not feel any differently after taking cipro and flagyl. Onc History: diagnosed in 2017 and completed one cycle of R-CHOP then 5 cycles of EPOCH-R in 12/2017 with CR. He had IT-MTX on C3 complicated by intracranial hypotension. A right cervical LN biopsy was notable forEBV+ florid follicular hyperplasia. He underwent a cervical LN bx 10/13/19 which showed which showed an EBV -ve lymph node. Past Medical History: Diagnosis Date ??? CMV (cytomegalovirus infection) (CMS/HCC) ??? Community acquired pneumonia of right middle lobe of lung (CMS/HCC) 01/06/2019 ??? Generalized enlarged lymph nodes Lymphadenopathy, [...] ??? PNA (pneumonia) ??? Pulmonary emboli (CMS/HCC) Past Surgical History: Procedure Laterality Date ??? BIOPSY LIVER N/A 02/02/2020 ??? BIOPSY LYMPH NODE SUPERFICIAL N/A 05/22/2014 ??? LIVER TRANSPLANT 1999 ??? SPLENECTOMY ??? US ABDOMEN COMPLETE W LIVER DUPLEX (C) Right 10/18/2018 ??? US GUIDED BIOPSY LIVER N/A 10/18/2018 ??? US GUIDED BIOPSY LYMPH NODE SUPERFICIAL N/A 10/13/2019 HOME MEDICATIONS : ciprofloxacin (Cipro) 500 mg tablet ganciclovir (CYTOVENE) 500 mg injection metroNIDAZOLE (Flagyl) 500 mg tablet tacrolimus (PROGRAF) 0.5 mg capsule tacrolimus (PROGRAF) 0.5 mg capsule tacrolimus (PROGRAF) 0.5 mg capsule valGANciclovir (VALCYTE) 450 mg tablet Current Facility-Administered Medications Ordered in [facility] Medication Dose Route Frequency Provider Last Rate Last Dose ? ? aluminum & magnesium fvuupefpw-vnmovfwyvkb-ilnlfvidsxrrrga-lidocaine (MAGIC MOUTHWASH) suspension 1-1-1 15 mL swish & swallow QID PRN Mary Rodriguez Pretto, PHOTONIC LABORATORY TECHNICIAN ??? bacitracin-polymyxin B (POLYSPORIN) 500-10,000 unit/gram ointment tube 1 application 1 application topical Q4H PRN Mary Araya, PHOTONIC LABORATORY TECHNICIAN ??? camphor-menthoL (SARNA) 0.5-0.5 % lotion topical Q2H PRN Mary Araya, PHOTONIC LABORATORY TECHNICIAN ??? enoxaparin (LOVENOX) syringe 40 mg 40 mg subcutaneous Daily-2100 Mary Araya, PHOTONIC LABORATORY TECHNICIAN 40 mg at 02/15/202012 ??? ganciclovir 270 mg in sodium chloride 0.9% 100 mL IVPB 5 mg/kg intravenous Q12H [facility] Mary Araya, PHOTONIC LABORATORY TECHNICIAN Stopped at 02/16/20 1100 ??? heparin 10 unit/mL flush 20-50 Units 2-5 mL intra-catheter PRN Mary Araya, PHOTONIC LABORATORY TECHNICIAN ??? heparin 10 unit/mL flush 50 Units 5 mL intra-catheter Q12H [facility] Mary Araya, PHOTONIC LABORATORY TECHNICIAN 50 Units at02/16/20 1045 ??? lidocaine PF (XYLOCAINE) 10 mg/mL (1 %) preservative free injection 10-20 mg 1-2 mL subcutaneous Once Mary Araya, PHOTONIC LABORATORY TECHNICIAN ??? loperamide (IMODIUM) capsule 2 mg 2 mg oral Q1H PRN Mary Araya, PHOTONIC LABORATORY TECHNICIAN ??? magnesium sulfate 4 g/100 mL in water (premix) 4 g 4 g intravenous Q4H PRN Mary Araya, PHOTONIC LABORATORY TECHNICIAN ??? magnesium sulfate 6 g in sodium chloride 0.9% 250 mL IVPB 6 g intravenous Q4H PRN Mary Araya, PHOTONIC LABORATORY TECHNICIAN ??? polyvinyl alcohol-povidone (REFRESH CLASSIC) 1.4-0.6 % ophthalmic solution 2 drop 2 drop each eye Q4H PRN Mary Araya, PHOTONIC LABORATORY TECHNICIAN ??? potassium chloride 40 mEq/100 mL in sterile water (premix) 40 mEq 40 mEq intravenous Q4H PRN Mary Araya, PHOTONIC LABORATORY TECHNICIAN ??? potassium chloride ER (KLOR-CON) extended release tablet 40 mEq 40 mEq oral Q4H PRN Mary Araya, PHOTONIC LABORATORY TECHNICIAN ??? pramoxine-zinc oxide (TRONOLANE) 1-5 % rectal cream rectal TID PRN Mary Araya, PHOTONIC LABORATORY TECHNICIAN ??? sodium chloride (OCEAN) 0.65 % nasal spray 2 spray 2 spray each nostril Q1H PRN Mary Araya, PHOTONIC LABORATORY TECHNICIAN ? ? sodium chloride 0.9 % irrigation 30 mL 30 mL swish & spit QID Mary Araya NP ??? sodium chloride 0.9% flush 5-10 mL 5-10 mL intra-catheter Q12H PIPPA Mary Araya, PHOTONIC LABORATORY TECHNICIAN 10 mL at 02/16/20 0941 ??? sodium chloride 0.9% flush 5-20 mL 5-20 mL intra-catheter PRN Mary Araya NP ??? sodium chloride 0.9% IVPB 0-250 mL 0-250 mL intravenous PRN Mary Araya, PHOTONIC LABORATORY TECHNICIAN 250 mL at 02/15/20 2018 ??? tacrolimus (PROGRAF) capsule 0.5 mg 0.5 mg oral BID Lawrence Bernardo MD 0.5 mg at 02/16/20 0941 ??? white petrolatum-mineral oiL (EUCERIN) cream topical Q2H PRN Mary Araya, AIDEN Current Outpatient Medications Ordered in [facility] Medication Sig Dispense Refill ??? ganciclovir (CYTOVENE) 500 mg injection Infuse 5.4 mL (270 mg total) into a venous catheter every 12 (twelve) hours Anti-infectives (From admission, onward) Start Dose/Rate Route Frequency Ordered Stop 02/16/20 0000 ganciclovir (CYTOVENE) 500 mg injection 270 mg intravenous Every 12 hours 02/16/20 0736 02/15/20 2100 ganciclovir 270 mg in sodium chloride 0.9% 100 mL IVPB 5 mg/kg ?? 54.9 kg 105.4 mL/hr over 60 Minutes intravenous Every 12 hours scheduled 02/15/20 1602 02/15/20 1430 bacitracin-polymyxin B (POLYSPORIN) 500-10,000 unit/gram ointment tube 1 application 1 application topical Every 4 hours PRN 02/15/20 1434 Active Lines/Ports/Devices: PICC Single Lumen 02/15/20 Non-tunneled Power Left Basilic;Upper arm (Active) Number of days: 1 Patient Allergies: No Known Allergies Social History Social History Narrative Living Situation: Residential institution 10/05/17 (Added by TW Conv) reports that he has never smoked. He has never used smokeless tobacco. He reports current alcohol use. He reports previous drug use. Family history reviewed and non-contributory Family History Problem Relation Age of Onset ??? Rectal cancer Mother Rectal cancer - (Added by TW Conv) ??? Diabetes type II Sister Family history of type 2 diabetes mellitus - (Added by TW Conv) ??? Anesthesia problems Other Review of Systems: Review of Systems Constitutional: Negative for chills, fever and unexpected weight change. Respiratory: Negative for cough and shortness of breath. Cardiovascular: Negative for chest pain. Gastrointestinal: Negative for diarrhea, nausea and vomiting. Genitourinary: Negative for dysuria. Skin: Negative for rash. Allergic/Immunologic: Negative for immunocompromised state. Neurological: Negative for weakness. Hematological: Negative for adenopathy. Psychiatric/Behavioral: Negative for confusion. All other systems reviewed and are negative. Objective Vitals: 24hr Min/Max: Temp Min: 36.6 ??C (97.9 ??F) Max: 36.8 ??C (98.2 ??F) Pulse Min: 64 Max: 123 BP Min: 93/52 Max: 113/61 Resp Min: 16 Max: 18 SpO2 Min: 95 % Max: 99 % Most Recent : Vitals: 02/16/20 0705 BP: 99/51 Pulse: 64 Resp: 18 Temp: 36.6 ??C (97.9 ??F) SpO2: 95% I/O last 2 completed shifts: In: 426 [P.O.:300; IV Piggyback:126] Out: - Physical Exam: Physical Exam Vitals signs reviewed. Constitutional: General: He is not in acute distress. HENT: Head: Normocephalic and atraumatic. Nose: Nose normal. Mouth/Throat: Pharynx: No oropharyngeal exudate. Eyes: General: No scleral icterus. Right eye: No discharge. Left eye: No discharge. Conjunctiva/sclera: Conjunctivae normal. Pupils: Pupils are equal, round, and reactive to light. Neck: Musculoskeletal: Normal range of motion and neck supple. Cardiovascular: Rate and Rhythm: Normal rate and regular rhythm. Heart sounds: Normal heart sounds. No murmur. No friction rub. No gallop. Pulmonary: Effort: Pulmonary effort is normal. No respiratory distress. Breath sounds: Normal breath sounds. No wheezing or rales. Abdominal: General: Bowel sounds are normal. There is no distension. Palpations: Abdomen is soft. There is no mass. Tenderness: There is no abdominal tenderness. There is no guarding or rebound. Musculoskeletal: General: No deformity. Lymphadenopathy: Cervical: Cervical adenopathy present. Skin: General: Skin is warm. Findings: No rash. Neurological: Mental Status: He is alert and oriented to person, place, and time. Cranial Nerves: No cranial nerve deficit. Psychiatric: Thought Content: Thought content normal. Lab/Radiology/Diagnostic Review: I reviewed the laboratory result(s). Recent Labs: Microbiology: Lab Results Component Value Date MICROBIOLOGY Final Report: No growth 12/25/2019 MICROBIOLOGY Final Report: No growth 12/25/2019 MICROBIOLOGY (.) 12/21/2019 Final Report: Positive for Nadine De La Cruz Virus For additional result information, see attached scanned report. MICROBIOLOGY Final Report: No growth 12/21/2019 MICROBIOLOGY Final Report: No growth 12/21/2019 MICROBIOLOGY Final Report: Negative 10/11/2019 MICROBIOLOGY Final Report: No growth 10/10/2019 MICROBIOLOGY Final Report: No growth 10/10/2019 MICROBIOLOGY 01/04/2019 Final Report: Growth indicates upper respiratory ellie. MICROBIOLOGY Final Report: Negative for Nadine De La Cruz Virus 01/03/2019 MICROBIOLOGY Final Report: No growth 01/03/2019 MICROBIOLOGY Final Report: No growth 01/03/2019 CBC: Recent Labs Lab Units 02/16/20 0417 WBC K/cumm 7.6 HEMOGLOBIN g/dL 14.5 HEMATOCRIT % 41.8 PLATELETS K/cumm 260 NEUTROS PCT % 31.5 LYMPHS PCT % 48.8 MONOS PCT % 14.0 EOS PCT % 2.0 CMP: Recent Labs Lab Units 02/16/20 0417 02/09/20 1252 SODIUM mmol/L 141 < > 140 POTASSIUM mmol/L -- -- 4.2 POTASSIUM PLASMA mmol/L 4.6 < > -- CHLORIDE mmol/L 108 < > 105 CO2 mmol/L 26 < > 26 ANIONGAP mmol/L 7 < > -- GLUCOSE mg/dL 94 < > 97 BUN SERUM mg/dL 10 < > 10 CREATININE mg/dL 0.77* < > 0.86 CALCIUM mg/dL 8.9 < > 9.5 PROTEIN g/dL -- -- 5.4* ALBUMIN g/dL 3.8 < > 4.1 ALK PHOS Units/L 231* < > 330* ALT Units/L 30 < > 35 AST Units/L 41 < > 32 BILIRUBIN TOTAL mg/dL 0.5 < > 0.5 < > = values in this interval not displayed. ESR: CRP: Last UA: Current CrCl: Estimated Creatinine Clearance: 111.9 mL/min (A) (by C-G formula based on SCr of 0.77mg/dL (L)). Cr. Trend: Recent Labs Lab Units 02/16/20 0417 02/15/20 1554 02/09/20 1252 CREATININE mg/dL 0.77* 0.95 0.86 Last HIV Labs (if any): HIV Ab Screen: Lab Results Component Value Date [id number] Nonreactive 01/03/2019 HIV Viral Load: Lab Results Component Value Date [id number] Not Detected 04/06/2017 CD4 Count: No results found for: CD4ABS Radiology: Radiology results were reviewed. Last X-Ray Result: Results for orders placed during the hospital encounter of 12/25/19 X-ray chest 2 views Narrative EXAMINATION: 2 view chest radiograph Impression Comparison is made to prior exam(s) on 10/10/2019 and 12/21/2019. Mediastinal clips in the upper abdomen are again noted, unchanged. Small nodular densities are seen in the left mid-lung, very slightly increased compared to the prior exam on 12/21/2019, and new compared to prior exam on 10/10/2019. Given the patient's immune status, these findings may represent a developing pneumonia. However, a process related to the patient's known post- transplant lymphoproliferative disorder may have a similar appearance. The previously seen right mid-lung nodular opacity is not well visualized on this study. No pulmonary edema, pneumothorax, or pleural effusion. Cardiac size and mediastinal contours are normal. Dictated by: Jena Peters M.D. The radiology attending physician has personally reviewed this study, and had reviewed and/or edited this written report and agrees with it. Electronically signed by: Robert Gilman M.D., MPH Last CT Result: Results for orders placed during the hospital encounter of 03/10/19 CT Neck Soft Tissue W Contrast Narrative EXAMINATION: CT of the neck with contrast HISTORY: 24-year-old man with non-Hodgkin lymphoma and liver transplant, now presenting with sore throat, inability to tolerate secretions and neck pain.. TECHNIQUE: CT of the neck was performed according to standard protocol after the uneventful administration of intravenous contrast. Contrast information: 100 mL Optiray-350 COMPARISON: Neck CT dated 12/28/2018. FINDINGS: Review of the topogram demonstrates no abnormality. There are surgical sharee in the right submandibular space, consistent with postsurgical changes of lymph node resection. There are prominent lymph nodes in the upper mediastinum. They are prominent but not-enlarged bilateral posterior triangular lymph nodes, worse on the right side. Along the jugulodigastric chain, there are homogenous enhancing lymph nodes in the submandibular submental spaces, which have mildly decreased in size compared to prior exam. There is persistently enhancing mucosal surface in the nasopharynx and oropharynx, without substantial change from prior exam. The muscles of the neck are normal. Vessels of the neck demonstrate normal course and caliber. The visualized airway is widely patent. The base of the skull and the temporal bones are normal. Limited views of the brain including the cerebellum and brainstem are normal. The limited view of the [place] is unremarkable. The visualized portions of the orbits are normal. There is mild mucosal thickening in the left maxillary sinus. The spinal canal is normal in caliber. Intervertebral disk heights are normal. Neural foramina are normal. 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 There is reversal of cervical versus with focal kyphosis at C4-C5. No osseous aggressive lesion identified. Limited examination of the superior thorax shows no pulmonary infiltrate, suspicious nodules, or pleural effusions. Impression 1. Diffuse enhancement of the nasopharyngeal and oropharyngeal mucosa, not substantially changed from prior exam, which could be mucositis. 2. Diffuse cervical lymphadenopathy, mildly decreased from prior exam. 3. No organized fluid collection. Dictated by: Lucien Olivarez M.D. The radiology attending physician has personally reviewed this study, and had reviewed and/or edited this written report and agrees with it. Electronically signed by: Gallito Martel M.D. The following images were personally examined and the following details determined: Assessment/Plan The patient is a 25 y.o. male with PMH of Refractory ITP s/p splenectomy 2012, autoimmune hepatitiss/p orthotopic liver transplant 03/30/2009, c/b PTLD (c-Myc, EBV +) s/p R-CHOP x 1 (2016), DA-EPOCH-R x 5 (09/2017-12/2017) with IT MTX w/ C3 10/2017, achieving CR in 12/2017, now with persistent quantifiable CMV viremia since 06/2019 and here for ganciclovir initiation. #CMV viremia: No evidence of tissue invasion but has had prolonged viremia while on valgancyclovir # Necrotic liver lesion: Unclear etiology. Pt denies any symptoms. LFTs improving Plan: - Pt started on ganciclovir today. Will follow up resistance testing - Recommend repeat MRI to evaluate liver lesion. Further recommendations pending results. Pt seen and discussed with Dr. Liang. Transplant ID to follow. Please call [phone] with questions. Cosigned by Zeferino Liang MD at 02/18/2020 11:38 PM CDT Associated attestation - Zeferino Liang MD - 02/18/2020 11:38 PM CDT I have seen and examined the patient on 02/16/2020. I agree with the findings and plan of care as documented in the resident's/fellow's note. CMV viremia was again lower, so resistance testing not possible. Repeat MRI abdomen with improvement in abscess - personally reviewed images. * Elfego Velazquez MD - 02/16/2020 10:21 AM CDTAssociated Order(s): IP CONSULT [facility] ON[facility] Oncology Medicine Consult Reason for Consult: PTLD Requesting Provider: Mary Araya Subjective HPI: Mr. 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 The patient has been CMV+ since April 2017 with low levels. He has trial oral medications but has had persistent viremia (last levels 3.57 on 02/08. The patient will be admitted for IV therapy until CMV PCR is negative. As for his oncologic history, he was diagnosed in 2016 and completed one cycle of R-CHOP then 5 cycles of EPOCH-R in 12/2017 with CR. He had IT-MTX on C3 complicated by intracranial hypotension. A right cervical LN biopsy was notable for EBV+ florid follicular hyperplasia. He feels like he is in his usual state of health and has no complaints. He has no fevers, chills, diarrhea, chest pain, shortness of breath. He has an occasional cough. Cancer Staging No matching staging information was found for the patient. Oncology History PMH: 1. Liver transpant x 2 for acute liver failure (autoimmune hepatitis), 1998 2. 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 CMV viremia, 2017 PTLD after liver transplantation (CMS/HCC) 08/25/2017 Initial Diagnosis PTLD after liver transplantation (CMS/HCC) Active Treatment & Therapy Plans for Beka Nichols Justin J does not have any active plans of the following types: Oncology Chemotherapy Treatment, Oncology Treatment (2), Oncology Treatment (3), Oncology Supportive Care, Specialty Infusion Treatment, Blood Products, BMT, Hematology Past Medical History: Diagnosis Date ??? CMV (cytomegalovirus infection) (CMS/HCC) ??? Community acquired pneumonia of right middle lobe of lung (CMS/HCC) 01/06/2019 ??? Generalized enlarged lymph nodes Lymphadenopathy, [...] ??? PNA (pneumonia) ??? Pulmonary emboli (CMS/HCC) Past Surgical History: Procedure Laterality Date ??? BIOPSY LIVER N/A 02/02/2020 ??? BIOPSY LYMPH NODE SUPERFICIAL N/A 05/22/2014 ??? LIVER TRANSPLANT 1998 ??? SPLENECTOMY ??? US ABDOMEN COMPLETE W LIVER DUPLEX (C) Right 10/18/2018 ??? US GUIDED BIOPSY LIVER N/A 10/18/2018 ??? US GUIDED BIOPSY LYMPH NODE SUPERFICIAL N/A 10/13/2019 No Known Allergies Medications Prior to Admission Medication Sig Dispense Refill Last Dose ??? [] ciprofloxacin (Cipro) 500 mg tablet Take 1 tablet (500 mg total) by mouth 2 (two) times a day for 14 days 28 tablet 0 Taking ??? [] metroNIDAZOLE (Flagyl) 500 mg tablet Take 1 tablet (500 mg total) by mouth 3 (three) times a day for 14 days 42 tablet 0 Taking ??? tacrolimus (PROGRAF) 0.5 mg capsule Take 1 capsule (0.5 mg total) by mouth 2 (two) times a day 180 capsule 3 Taking ??? tacrolimus (PROGRAF) 0.5 mg capsule Taking ??? tacrolimus (PROGRAF) 0.5 mg capsule TAKE 1 CAPSULE BY MOUTH TWICE A DAY 60 capsule 11 ??? valGANciclovir (VALCYTE) 450 mg tablet Take 2 tablets (900 mg total) by mouth 2 (two) times a day 120 tablet 0 Taking Current Facility-Administered Medications: ? ? aluminum & magnesium gpvcyrvtl-bungzvmmbln-kfkxqeacswokezu-lidocaine (MAGIC MOUTHWASH) suspension 1-1-1, 15 mL, swish & swallow, QID PRN, Mary Araya, PHOTONIC LABORATORY TECHNICIAN ??? bacitracin-polymyxin B (POLYSPORIN) 500-10,000 unit/gram ointment tube 1 application, 1 application, topical, Q4H PRN, Mary Araya NP ??? camphor-menthoL (SARNA) 0.5-0.5 % lotion, , topical, Q2H PRN, Mary Araya NP ??? enoxaparin (LOVENOX) syringe 40 mg, 40 mg, subcutaneous, Daily-2100, Mary Araya NP, 40 mg at 02/15/202012 ??? ganciclovir 270 mg in sodium chloride 0.9% 100 mL IVPB, 5 mg/kg, intravenous, Q12H PIPPA, Mary Araya NP, Last Rate: 105.4 mL/hr at 02/16/20 0948, 270 mg at 02/16/20 0948 ??? heparin 10 unit/mL flush 20-50 Units, 2-5 mL, intra-catheter, PRN, Mary Araya NP ??? heparin 10 unit/mL flush 50 Units, 5 mL, intra-catheter, Q12H PIPPA, Mary Araya, PHOTONIC LABORATORY TECHNICIAN, 50 Units at 02/16/20 1045 ??? lidocaine PF (XYLOCAINE) 10 mg/mL (1 %) preservative free injection 10-20 mg, 1-2 mL, subcutaneous, Once, Mary Araya, PHOTONIC LABORATORY TECHNICIAN ??? loperamide (IMODIUM) capsule 2 mg, 2 mg, oral, Q1H PRN, Mary Araya, PHOTONIC LABORATORY TECHNICIAN ??? magnesium sulfate 4 g/100 mL in water (premix) 4 g, 4 g, intravenous, Q4H PRN, Mary Araya, PHOTONIC LABORATORY TECHNICIAN ??? magnesium sulfate 6 g in sodium chloride 0.9% 250 mL IVPB, 6 g, intravenous, Q4H PRN, Mary Cortez, PHOTONIC LABORATORY TECHNICIAN ??? polyvinyl alcohol-povidone (REFRESH CLASSIC) 1.4-0.6 % ophthalmic solution 2 drop, 2 drop, eacheye, Q4H PRN, Mary Araya, PHOTONIC LABORATORY TECHNICIAN ??? potassium chloride 40 mEq/100 mL in sterile water (premix) 40 mEq, 40 mEq, intravenous, Q4H PRN, Mary Araya, PHOTONIC LABORATORY TECHNICIAN ??? potassium chloride ER (KLOR-CON) extended release tablet 40 mEq, 40 mEq, oral, Q4H PRN, Mary Araya, PHOTONIC LABORATORY TECHNICIAN ??? pramoxine-zinc oxide (TRONOLANE) 1-5 % rectal cream, , rectal, TID PRN, Mary Araya, PHOTONIC LABORATORY TECHNICIAN ??? sodium chloride (OCEAN) 0.65 % nasal spray 2 spray, 2 spray, each nostril, Q1H PRN, Mary Araya, PHOTONIC LABORATORY TECHNICIAN ? ? sodium chloride 0.9 % irrigation 30 mL, 30 mL, swish & spit, QID, Mary Araya, PHOTONIC LABORATORY TECHNICIAN ??? sodium chloride 0.9% flush 5-10 mL, 5-10 mL, intra-catheter, Q12H PIPPA, Mary Araya, PHOTONIC LABORATORY TECHNICIAN, 10mL at 02/16/20 0941 ??? sodium chloride 0.9% flush 5-20 mL, 5-20 mL, intra-catheter, PRN, Mary Araya, PHOTONIC LABORATORY TECHNICIAN ??? sodium chloride 0.9% IVPB 0-250 mL, 0-250 mL, intravenous, PRN, Mary Araya NP, 250 mL at02/15/20 2018 ??? tacrolimus (PROGRAF) capsule 0.5 mg, 0.5 mg, oral, BID, Lawrence Bernardo MD, 0.5 mg at 02/15/200941 ??? white petrolatum-mineral oiL (EUCERIN) cream, , topical, Q2H PRN, Mary Araya NP Family History Problem Relation Age of Onset ??? Rectal cancer Mother Rectal cancer - (Added by TW Conv) ??? Diabetes type II Sister Family history of type 2 diabetes mellitus - (Added by TW Conv) ??? Anesthesia problems Other Social History Tobacco Use ??? Smoking status: Never Smoker ??? Smokeless tobacco: Never Used Substance Use Topics ??? Alcohol use: Yes Comment: occassional Review of Systems: Review of systems per HPI and otherwise all other systems are negative Objective Vitals: Arrival Vitals [02/15/20 1425] Temp 36.8 ??C (98.2 ??F) Pulse 72 Resp 16 BP 113/61 SpO2 98 % Temp src Oral Heart Rate Source Monitor Patient Position Sitting BP Location Right arm FiO2 (%) 24hr Min/Max: Temp Min: 36.6 ??C (97.9 ??F) Max: 36.8 ??C (98.2 ??F) Pulse Min: 64 Max: 123 BP Min: 93/52 Max: 113/61 Resp Min: 16 Max: 18 SpO2 Min: 95 % Max: 99 % Most Recent : Vitals: 02/16/20 0705 BP: 99/51 BP Location: Right arm Patient Position: Lying Pulse: 64 Resp: 18 Temp: 36.6 ??C (97.9 ??F) TempSrc: Oral SpO2: 95% Weight: I/O last 2 completed shifts: In: 426 [P.O.:300; IV Piggyback:126] Out: - Physical Exam: Gen: In no acute distress, non-toxic appearing HEET: EOMI, no pallor, anicteric sclera, MMM, Neck: ~1cm jugulodigastric nodes, subcentimeter anterior cervical nodes, and left supraclavicular adenopathy, no axillary lymphadenopathy noted Resp: No respiratory distress, CTAB, no wheezing or crackles. CV: RRR, no M/R/G, 2+ radial/dorsalis pulses bilaterally. GI: NTND, no organomegaly, +BS, no inguinal adenopathy MSK: No lower ext. edema or swelling, normal passive and active movements. Skin: No ulcers or skin rash noticed. Neuro: CN II-XII intact, no focal deficits noticed Psych: appropriate mood and affect Lab/Radiology/Diagnostic Review: Laboratory review: reviewed the laboratory result(s) on 02/15, see below CBC: Recent Labs Lab Units 02/16/20 0417 WBC K/cumm 7.6 HEMOGLOBIN g/dL 14.5 HEMATOCRIT % 41.8 MCV fL 93.9 PLATELETS K/cumm 260 NEUTROS ABS K/cumm 2.4 CMP: Recent Labs Lab Units 02/16/20 0417 SODIUM mmol/L 141 POTASSIUM PLASMA mmol/L 4.6 CO2 mmol/L 26 BUN SERUM mg/dL 10 GLUCOSE mg/dL 94 CREATININE mg/dL 0.77* CALCIUM mg/dL 8.9 CHLORIDE mmol/L 108 ALBUMIN g/dL 3.8 AST Units/L 41 ALT Units/L 30 ALK PHOS Units/L 231* BILIRUBIN TOTAL mg/dL 0.5 TOTAL PROTEIN g/dL 5.3* ANIONGAP mmol/L 7 PT: Recent Labs Lab Units 02/15/20 1554 PROTIME (PT) sec 12.2 PTT: Recent Labs Lab Units 02/15/20 1554 APTT sec 31 Pathology: 02/02/2020: Liver, needle-core biopsy: - ?Necrosis, surrounded by organizational changes and chronic inflammation, involving hepatic parenchyma - ? Negative for fungal organisms (GMS and PAS stains) and acid fast bacilli (AFB stain) - ? Negative for involvement by atypical lymphoid proliferation (see comment), or any other malignancy 10/13/2019: Lymph node, left axillary, needle-core biopsy: - ?Organized lymphoid tissue with reactive features - ?No evidence of lymphoproliferative disorder ? - ??No clonal B-cell or immunophenotypically abnormal T cell population identified by flow cytometry Assessment/Plan Mr. 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 #CMV Viremia: Persistent low-level viremia refractory to PO treatment. Admitted for IV therapy. Believed not to be tissue invasive at this time. Priro liver mass was necrotic without purulence, so culture not sent -Treatment plan per Dr. 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 Gillespie. One cycle of R-CHOP then 5 cycles of EPOCH-R in 12/2017 with CR. Has had waxing and waning lymphadenopathy with PET imaging showing multiple enlarge lymph nodes. Last biopsy on 10/2019 of left axillary lymph node without signs of lymphoproliferative disorder. -No signs of recurrence at this time Elfego Velazquez MD Internal Medicine PGY-[id number] Cosigned by Kirti Zhu MD PhD at 02/16/2020 6:16 PM CDT Associated attestation - Kirti Zhu MD PhD - 02/16/2020 6:16 PM CDT I have seen and examined the patient on 02/16/20. I agree with the findings and plan of care as documented in the resident's/fellow's note. documented in this encounter Nursing Notes * Leida Chung RN - 02/17/2020 5:57 PM CDT Patient will discharge home once ganciclovir ends. Discharge education completed, questions answered. documented in this encounter Miscellaneous Notes * Plan of Care - Nicole Bueno RN - 02/17/2020 2:05 PM CDT Plan for discharge! TODAY Pt will need to have MEDICATION today before discharge. Meds will be delivered to HOME. [facility] Home Infusion will be providing meds. [facility] Home Health will be providing [facility]. SOC 02/18/2020 There must be a Referral to Home Health order set completed. Please choose Home Health and Infusion . Discharge orders received and forwarded to [facility] and [facility]. 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 despite month long treatment with Valcyte Tolerating IV DHPG Continue treatment (and hopefully home treatment) Weekly CMV DNA PCR and will change back to PO when CMV DNA PCR negative Await results for assessment of DHPG resistance * Assessment & Plan Note - Theodore Gresham MD - 02/17/2020 11:08 AM CDT Associated Problem(s): History of liver transplant (CMS/HCC) (HCC) Continue home immunosuppression dosing The alk phos is noted and improved The ID team has requested repeat imaging of the liver The biopsy of this was reviewed and showed focal necrosis only Will review repeat MRI * Hospital Course - Lawrence Bernardo MD - 02/17/2020 10:47 AM CDT History of liver transplant (CMS/HCC) OLT??03/30/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 Followed by Dr. Alford. Continued home tacrolimus 0.5 mg BID. Liver team consulted. ?? PTLD after liver transplantation (CMS/HCC) Hx of??c-Myc positive PTLD, EBV+, stage EMY, IPI 3 (stage, LDH, extranodal site).??S/p RCHOP x1 [id number] x5 (completed 12/2017), IT-MTX C3 only d/t intracranial hypotension, w/ post-C2 NH, CR atend-of treatment. No evidence of recurrence though course complicated by multiple episodes of progressive adenopathy with spontaneous resolution. No evidence of PTLD on recent VIR biopsy. Followed byDr. Gillespie, on observation. ?? 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 Given persistent low-level CMV viremia despite PO therapy, pt admitted for IV ganciclovir as recommended by Dr. Gresham.? PICC placed as anticipated lengthy duration of treatment - to continue gancicylovir until CMV??DNA PCR negative??(monitor weekly s/p hospitalization) then may switch to Valcyte suppression. ConsultedTransplant ID service regarding plans for re-imaging liver lesion, need for CMV testing on VIR liver bx sample. Ordered CMV mutation panel and d/w lab medicine resident, needed recent CMV DNA quant PCR within the last 7 days so re-ordered this as well. CMV DNA 2.68 logIU/ml on 02/15 with viral load of 480, which is considered too low to test for CMV mutation analysis. ID to discuss with lab medicine to decideif CMV mutation analysis is to be pursued regardless. Continue Ganciclovir 270mg iv Q12. Case Mgmt consulted for HH/home infusion.? Liver opacity on imaging Suspected liver abscess on MRI Abd in early January. Completed 2 weeks Cipro+flagyl for the same without significant clinical change. VIR bx showed necrotic focus with chronic inflammation but no e/o atypical lymphoid proliferation. No cultures taken, and CMV PCR not tested on said sample. Will repeat MRI Liver w/wo con per ID recs. ?? Elevated LFTs Recently w/ elevated LFTs, now appear down-trending. Work-up w/ MRCP, biopsy + necrosis, felt possible liver abscess and has completed 14d course of Cipro/Flagyl.??Low suspicion r/t CMV viremia per liver team.??Trend LFTs * Plan of Care - Marilu Valdivia RN - 02/17/2020 10:44 AM CDT Plan to discharge home today with Home infusion. Must get all dose today Pt is a delivery to home and nursing will see pt at home on 02-17. * Plan of Care - Jerrod Mallory RN - 02/17/2020 2:35 AM CDT Goals: Clinical Goals for the Shift: Monitor for infection Summary: In process * Plan of Care - Bonita Pantoja RN - 02/16/2020 6:53 PM CDT Problem: Lack of Knowledge: Goal: Ability to state ways to decrease the risk of falls will improve Outcome: Progressing Problem: Safety: Goal: Will remain free from falls Outcome: Progressing Goal: Will remain free from injury from falls Outcome: Progressing Goal: Will remain free from falls and injury in home environment Outcome: Progressing Problem: Lack of Knowledge: Goal: Verbalization of understanding the information provided will improve Outcome: Progressing Problem: Physical Regulation: Goal: Complications related to the disease process, condition or treatment will be avoided or minimized Outcome: Progressing Problem: Health Behavior: Goal: Understanding of discharge needs will improve Outcome: Progressing Goals: Clinical Goals for the Shift: Monitor for medication side effects, monitor for fevers Summary: tolerating IV gancyclovir with no noted side effects, afebrile, several add'l labs sent off to determine effectiveness of gancyclovir, discharge plan still pending results of labs and pt's overall response * Plan of Care - Sonia Avalos RN - 02/16/2020 2:11 PM CDT Spoke with Mr Nichols today regarding planned discharge with home inf needs . Explained home inf process and potential plan . Mr Nichols has done home inf in the past and is familiar with process . Advised him final dc date and orders are still pending . GISELLA Wilder updated , should he dc on Wednesday he would need to dose out on ganciclovir and [facility] could see him on Wednesday at home for SOC . * Plan of Care - Yulisa Galvan RN - 02/16/2020 4:40 AM CDT Problem: Lack of Knowledge: Goal: Ability to state ways to decrease the risk of falls will improve Outcome: Progressing Problem: Safety: Goal: Will remain free from falls Outcome: Progressing Goal: Will remain free from injury from falls Outcome: Progressing Goal: Will remain free from falls and injury in home environment Outcome: Progressing Problem: Lack of Knowledge: Goal: Verbalization of understanding the information provided will improve Outcome: Progressing Problem: Physical Regulation: Goal: Complications related to the disease process, condition or treatment will be avoided or minimized Outcome: Progressing Goals: Clinical Goals for the Shift: rest, meds Summary: Patient A&O X4. Patient remained free from falls during shift. Patient rested with no c/o pain. Patient received antiviral med IV and tolerated well. Labs drawn and checked for replacement. Will continue to monitor. * Plan of Care - Lili Xie RN - 02/15/2020 6:40 PM CDT Goals: receive PICC line, start medication Summary: Pt arrived to unit for initiation of ganciclovir for elevated CMV levels. Single lumen PICC placed in lft arm. EKG and labs completed. Pt A&Ox4 and resting in bed. Will continue to monitor. * Assessment & Plan Note - Mary Araya NP - 02/15/2020 2:14 PM CDT Associated Problem(s): Elevated LFTs Recently w/ elevated LFTs, now appear down-trending. Work-up w/ MRCP, biopsy +necrosis, felt possible liver abscess and has completed 14d course of Cipro/Flagyl. Low suspicion r/t CMV viremia per liver team. -Trend LFTs * Assessment & Plan Note - Mary Araya NP - 02/15/2020 2:06 PM CDT Associated Problem(s): Cytomegalovirus (CMV) viremia [...] -Case Mgmt consult for anticipated HH/home infusion * Assessment & Plan Note - Mary Araya NP - 02/15/2020 1:59 PM CDT Associated Problem(s): 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 S/p RCHOP x1 and DA-EPOCH-R x5 (completed 12/2017), IT-MTX C3 only d/t intracranial hypotension, w/ post-C2 NH, CR at end-of treatment. No e/o recurrence though course complicated by multiple episodes of progressive annika opathy w/ spontaneous resolution. -Followed by Dr. Gillespie, on observation - Med Onc consult inpatient * Assessment & Plan Note - Mary Araya NP - 02/15/2020 1:58 PM CDT Associated Problem(s): History of liver transplant (CMS/HCC) (HCC) 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 Followed by Dr. Gresham. -Cont tacro 0.5 mg BID -Liver team consulted documented in this encounter Plan of Treatment Scheduled Orders Name Type Priority Associated Diagnoses Orde r Schedule Urinalysis reflex to microscopic and culture Urine, clean voided Microbiology STAT Lab orders - as needed, STAT collection for 1 Occurrences starting 02/15/2020 C. difficile testing Stool Microbiology STAT Lab orders - as needed, STAT collection for 1 Occurrences starting 02/15/2020 Scheduled Procedures Name Priority Associated Diagnoses Date/Ti me COLONOSCOPY Encounter for screening for colorectal cancer in high risk patient Family history of rectal cancer documented as of this encounter Procedures Procedure Name Priority Date/Time Associated Diagnosis Comments MRI ABDOMEN LIVER W WO CONTRAST IP Routine 02/17/2020 9:45 AM CDT DIFFERENTIAL AUTO Routine 02/17/2020 5:2 0 AM CDT CBC WITH AUTO DIFFERENTIAL Routine 02/17/2020 5:20 AM CDT PHOSPHORUS Routine 02/17/2020 5:20 AM CDT MAGNESIUM Routine 02/17/2020 5:20 AM CDT COMPREHENSIVE METABOLIC PANEL Routine 02/17/2020 5:20 AM CDT CYTOMEGALOVIRUS (CMV) DNA, QUANT GEN LAB STAT 02/16/2020 7:21 PM CDT DIFFERENTIAL AUTO Routine 02/16/2020 4:1 7 AM CDT CBC WITH AUTO DIFFERENTIAL Routine 02/16/2020 4:17 AM CDT PHOSPHORUS Routine 02/16/2020 4:17 AM CDT MAGNESIUM Routine 02/16/2020 4:17 AM CDT COMPREHENSIVE METABOLIC PANEL Routine 02/16/2020 4:17 AM CDT DIFFERENTIAL AUTO STAT 02/15/2020 3:5 4 PM CDT CBC WITH AUTO DIFFERENTIAL STAT 02/15/2020 3:54 PM CDT APTT STAT 02/15/2020 3:54 PM CDT PROTIME-INR STAT 02/15/2020 3:54 PM CDT FIBRINOGEN STAT 02/15/2020 3:54 PM CDT URIC ACID STAT 02/15/2020 3:54 PM CDT PHOSPHORUS STAT 02/15/2020 3:54 PM CDT MAGNESIUM STAT 02/15/2020 3:54 PM CDT LACTATE DEHYDROGENASE STAT 02/15/2020 3:54 PM CDT COMPREHENSIVE METABOLIC PANEL STAT 02/15/2020 3:54 PM CDT documented in this encounter Results * MRI Abdomen Liver W WO Contrast (02/17/2020 9:45 AM CDT) Anatomical Region Laterality Modality Body N/A Magnetic Resonan ce 02/17/2020 11:1 6 AM CDT Impressions 02/17/2020 11:16 AM CDT 1. ??Interval slight decrease in size of the rim-enhancing lesion in the anterior aspect of segment 4 with near resolution of surrounding parenchymal enhancement and decreased foci of enhancement elsewhere in the liver. ??Findings are favored to represent an improving abscess with reduction in surrounding inflammation. Continued follow-up is recommended. 2. Possible nonocclusive thrombus in the proximal superior mesenteric vein, with assessment limited by motion artifact on several sequences. The portal vein is patent. If confirmation is desired, a CT can be performed. Otherwise, continued attention on follow-up is recommended. 3. Unchanged lymphadenopathy from the prior exam. Electronically signed by: Roland Ogden M.D. Narrative 02/17/2020 11:16 AM CDT EXAMINATION: MAGNETIC RESONANCE IMAGING OF THE ABDOMEN WITH AND WITHOUT CONTRAST HISTORY: 25-year-old man status post liver transplant in 2008 from hepatitis, complicated by posttransplant lymphoma relative disorder. A new indeterminate lesion in segment IVb described on prior MRI 2020 was biopsied on 02/02/2020, pathology revealing necrosis, chronic inflammation, and no lymphoid proliferation or other evidence of malignancy. ??The patient is also currently being treated for CMV viremia. ??This is a follow-up examination. TECHNIQUE: Magnetic resonance imaging of the abdomen was performed prior to and following the uneventful administration of intravenous Gadolinium contrast. Protocol: Liver Contrast: Dotarem 10 mL COMPARISON: 2020 FINDINGS: Liver: There are redemonstrated findings of liver transplantation, with donor left hemiliver overall unchanged in morphology from the prior exam. ??No interval steatosis or iron deposition is noted. - Bile ducts: Remain normal in caliber. ??No evidence of biliary obstruction. - Focal liver lesions: Lesion 1: Anterior segment IVb, image 28 of series 11, a peripherally arterial hyperenhancing lesion measuring up to 2.3 cm in diameter has slightly decreased from the prior exam (previously 2.5 cm). ??The surrounding arterial phase regional hyperenhancement within the liver parenchyma has nearly resolved. ??A few foci of additional arterial hyperenhancement (image 18 of series 11 and image 32 of series 11) likely represent small areas of transient hepatic signal intensity difference, similar to prior exam, although less foci are evident from that time. No new lesions are identified. - Vasculature: The left portal and hepatic veins are patent. ??A rounded filling defect in the proximal superior mesenteric vein (image 20 of series 13/14) without definite correlate on other sequences (some of which are limited by motion artifact) is indeterminate, but may represent a small nonocclusive thrombus. Pancreas: Normal Spleen: Absent Adrenals: The right adrenal gland is normal. ??The left is not clearly visualized. Kidneys: Normal Other Findings: Extensive retroperitoneal and central mesenteric, abdominal and lower mediastinal lymphadenopathy is similar in appearance to the prior exam. Procedure Note Roland Ogden MD - 02/17/2020 EXAMINATION: MAGNETIC RESONANCE IMAGING OF THE ABDOMEN WITH AND WITHOUT CONTRAST HISTORY: 25-year-old man status post liver transplant in 2008 from hepatitis, complicated by posttransplant lymphoma relative disorder. A new indeterminate lesion in segment IVb described on prior MRI 2020 was biopsied on 02/02/2020, pathology revealing necrosis, chronic inflammation, and no lymphoid proliferation or other evidence of malignancy. The patient is also currently being treated for CMV viremia. This is a follow-up examination. TECHNIQUE: Magnetic resonance imaging of the abdomen was performed prior to and following the uneventful administration of intravenous Gadolinium contrast. Protocol: Liver Contrast: Dotarem 10 mL COMPARISON: 2020 FINDINGS: Liver: There are redemonstrated findings of liver transplantation, with donor left hemiliver overall unchanged in morphology from the prior exam. No interval steatosis or iron deposition is noted. - Bile ducts: Remain normal in caliber. No evidence of biliary obstruction. - Focal liver lesions: Lesion 1: Anterior segment IVb, image 28 of series 11, a peripherally arterial hyperenhancing lesion measuring up to 2.3 cm in diameter has slightly decreased from the prior exam (previously 2.5 cm). The surrounding arterial phase regional hyperenhancement within the liver parenchyma has nearly resolved. A few foci of additional arterial hyperenhancement (image 18 of series 11 and image 32 of series 11) likely represent small areas of transient hepatic signal intensity difference, similar to prior exam, although less foci are evident from that time. No new lesions are identified. - Vasculature: The left portal and hepatic veins are patent. A rounded filling defect in the proximal superior mesenteric vein (image 20 of series 13/14) without definite correlate on other sequences (some of which are limited by motion artifact) is indeterminate, but may represent a small nonocclusive thrombus. Pancreas: Normal Spleen: Absent Adrenals: The right adrenal gland is normal. The left is not clearly visualized. Kidneys: Normal Other Findings: Extensive retroperitoneal and central mesenteric, abdominal and lower mediastinal lymphadenopathy is similar in appearance to the prior exam. IMPRESSION: 1. Interval slight decrease in size of the rim-enhancing lesion in the anterior aspect of segment 4 with near resolution of surrounding parenchymal enhancement and decreased foci of enhancement elsewhere in the liver. Findings are favored to represent an improving abscess with reduction in surrounding inflammation. Continued follow-up is recommended. 2. Possible nonocclusive thrombus in the proximal superior mesenteric vein, with assessment limited by motion artifact on several sequences. The portal vein is patent. If confirmation is desired, a CT can be performed. Otherwise, continued attention on follow-up is recommended. 3. Unchanged lymphadenopathy from the prior exam. Electronically signed by: Roland Ogden M.D. Lawrence Bernardo MD [facility] [place] PROCEDURES Final Resu lt * (ABNORMAL) Differential, auto (02/17/2020 5:20 AM CDT) Neutrophil abs 3.4 1.7 - 6.5 K/cumm [facility] Imm gran abs 0.1 0.0 - 0.1 K/cumm [facility] Lymphocyte abs 3.7(H) 0.8 - 3.3 K/cumm [facility] Monocyte abs 1.1(H) 0.2 - 0.8 K/cumm [facility] Eosinophil abs 0.2 0.0 - 0.5 K/cumm [facility] Basophil abs 0.2(H) 0.0 - 0.1 K/cumm [facility] Neutrophil pct 39.1 % [facility] Comment: Interpretive Data Percent cell count reference ranges are not reported, since discordance with absolute values may lead to misinterpretation of CBC data. Current Interpretive Data was last revised on 2018. Imm gran pct 1.2 % [facility] Comment: Interpretive Data Percent cell count reference ranges are not reported, since discordance with absolute values may lead to misinterpretation of CBC data. Current Interpretive Data was last revised on 2018. Lymphocyte pct 42.8 % [facility] Comment: Interpretive Data Percent cell count reference ranges are not reported, since discordance with absolute values may lead to misinterpretation of CBC data. Current Interpretive Data was last revised on 2018. Monocyte pct 12.3 % [facility] Comment: Interpretive Data Percent cell count reference ranges are not reported, since discordance with absolute values may lead to misinterpretation of CBC data. Current Interpretive Data was last revised on 2018. Eosinophil pct 2.5 % [facility] Comment: Interpretive Data Percent cell count reference ranges are not reported, since discordance with absolute values may lead to misinterpretation of CBC data. Current Interpretive Data was last revised on 2018. Basophil pct 2.1 % [facility] Comment: Interpretive Data Percent cell count reference ranges are not reported, since discordance with absolute values may lead to misinterpretation of CBC data. Current Interpretive Data was last revised on 2018. Blood specimen (specimen) 02/17/2020 5:20 AM CDT 02/17/2020 5:39 AM CDT us Mary Araya PHOTONIC LABORATORY TECHNICIAN LAB BLOOD ORDERABLES Final R esult [facility] [place] [address] * (ABNORMAL) Comprehensive metabolic panel (02/17/2020 5:20 AM CDT) Sodium 140 135 - 145 mmol/L [facility] Potassium, pl 4.7 3.3 - 4.9 mmol/L [facility] Comment:Hemolyzed; Potassium value may be falsely elevated by as much as 0.3-0.5 mmol/L. Suggest redraw and reanalysis. Chloride 108 97 - 110 mmol/L [facility] CO2 25 22 - 32 mmol/L [facility] Anion gap 7 2 - 15 mmol/L [facility] BUN 9 8 - 25 mg/dL [facility] Creatinine 0.72(L) 0.80 - 1.30 mg/dL [facility] Glucose 110 70 - 199 mg/dL [facility] Comment: Interpretive Data Fasting glucose >/= [...] interpretive data was last revised 2017. Calcium 8.6 8.5 - 10.3 mg/dL [facility] Bilirubin, total 0.4 0.1 - 1.2 mg/dL [facility] Protein, pl 5.3(L) 6.5 - 8.5 g/dL [facility] Albumin 3.7 3.5 - 5.0 g/dL [facility] Alk phos 218(H) 40 - 130 Units/L [facility] ALT 32 7 - 55 Units/L [facility] AST 43 10 - 50 Units/L [facility] Comment:Hemolyzed; result ma y be falsely elevated Blood specimen (specimen) 02/17/2020 5:20 AM CDT 02/17/2020 5:39 AM CDT us Mary Araya PHOTONIC LABORATORY TECHNICIAN LAB BLOOD ORDERABLES Final R esult [facility] [place] [address] * Phosphorus (02/17/2020 5:20 AM CDT) Phosphorus, pl 3.8 2.3 - 4.5 mg/dL [facility] Blood specimen (specimen) 02/17/2020 5:20 AM CDT 02/17/2020 5:39 AM CDT us Mary Araya PHOTONIC LABORATORY TECHNICIAN LAB BLOOD ORDERABLES Final R esult Performing Organization Address City/[facility] Co de Phone Number [facility] [place] [address] * Magnesium (02/17/2020 5:20 AM CDT) Pathologist [facility] Magnesium 1.7 1.4 - 2.5 mg/dL [facility] Blood specimen (specimen) 02/17/2020 5:20 AM CDT 02/17/2020 5:39 AM CDT us Mary Araya PHOTONIC LABORATORY TECHNICIAN LAB BLOOD ORDERABLES Final R ult Performing Organization Address [facility] de Phone Number [facility] [place] [address] * (ABNORMAL) CBC with auto differential (02/17/2020 5:20 AM CDT) [facility] WBC 8.6 3.8 - 9.9 K/cumm [facility] Hgb 14.5 13.0 - 17.5 g/dL [facility] Hct 40.8 38.9 - 50.3 % [facility] Plt 231 150 - 400 K/cumm [facility] MPV 10.2 9.1 - 12.3 fL [facility] RBC 4.41 4.30 - 5.80 M/cumm [facility] MCV 92.5 81.3 - 96.4 fL [facility] MCH 32.9 27.1 - 33.3 pg [facility] MCHC 35.5 32.3 - 35.7 g/dL [facility] RDW CV 15.4(H) 11.1 - 14.9 % [facility] RDW SD 52.4(H) 35.7 - 48.1 fL [facility] NRBC abs 0.00 0.00 - 0.01 K/cumm [facility] Blood specimen (specimen) 02/17/2020 5:20 AM CDT 02/17/2020 5:39 AM CDT us Mary Araya NP LAB BLOOD ORDERABLES Final R esult Performing Organization Address [facility] Co de Phone Number [facility] [place] [address] * (ABNORMAL) Cytomegalovirus (CMV) DNA PCR, quantitative Blood (02/16/2020 7:21 PM CDT) [facility] CMV DNA Detected( A) [facility] Comment: Interpretive Data: The quantifiable range of this assay is 137 IUnits/mL to 9,100,000 IUnits/mL (2.14 log IUnits/mL to 6.96 log IUnits/mL). Testing was performed by the [employer] AmpliPrep/[employer] TaqMan CMV Test ([employer] Testing performed at [facility] Current interpretive data was last revised on 17. CMV DNA IU/mL 484 IUnits/mL [facility] CMV DNA log IU/mL 2.68 log IUnits/mL [facility] Blood specimen (specimen) 02/16/2020 7:21 PM CDT 02/16/2020 11:37 PM CDT us Lawrence Bernardo MD LAB MICROBIOLOGY - GENERAL OR DERABLES Final Result Performing Organization Address [facility] Co de Phone Number [facility] [place] [address] * (ABNORMAL) Differential, auto (02/16/2020 4:17 AM CDT) Pathologist [facility] Neutrophil abs 2.4 1.7 - 6.5 K/cumm [facility] Imm gran abs 0.1 0.0 - 0.1 K/cumm [facility] Lymphocyte abs 3.7(H) 0.8 - 3.3 K/cumm [facility] Monocyte abs 1.1(H) 0.2 - 0.8 K/cumm [facility] Eosinophil abs 0.2 0.0 - 0.5 K/cumm [facility] Basophil abs 0.2(H) 0.0 - 0.1 K/cumm [facility] Neutrophil pct 31.5 % [facility] Comment: Interpretive Data Percent cell count reference ranges are not reported, since discordance with absolute values may lead to misinterpretation of CBC data. Current Interpretive Data was last revised on 2018. Imm gran pct 1.3 % [facility] Comment: Interpretive Data Percent cell count reference ranges are not reported, since discordance with absolute values may lead to misinterpretation of CBC data. Current Interpretive Data was last revised on 2018. Lymphocyte pct 48.8 % [facility] Comment: Interpretive Data Percent cell count reference ranges are not reported, since discordance with absolute values may lead to misinterpretation of CBC data. Current Interpretive Data was last revised on 2018. Monocyte pct 14.0 % [facility] Comment: Interpretive Data Percent cell count reference ranges are not reported, since discordance with absolute values may lead to misinterpretation of CBC data. Current Interpretive Data was last revised on 2018. Eosinophil pct 2.0 % [facility] Comment: Interpretive Data Percent cell count reference ranges are not reported, since discordance with absolute values may lead to misinterpretation of CBC data. Current Interpretive Data was last revised on 2018. Basophil pct 2.4 % [facility] Comment: Interpretive Data Percent cell count reference ranges are not reported, since discordance with absolute values may lead to misinterpretation of CBC data. Current Interpretive Data was last revised on 2018. Blood specimen (specimen) 02/16/2020 4:17 AM CDT 02/16/2020 4:32 AM CDT us Mary Araya PHOTONIC LABORATORY TECHNICIAN LAB BLOOD ORDERABLES Final R esult [facility] [place] [address] * (ABNORMAL) Comprehensive metabolic panel (02/16/2020 4:17 AM CDT) Sodium 141 135 - 145 mmol/L [facility] Potassium, pl 4.6 3.3 - 4.9 mmol/L [facility] Chloride 108 97 - 110 mmol/L [facility] CO2 26 22 - 32 mmol/L [facility] Anion gap 7 2 - 15 mmol/L [facility] BUN 10 8 - 25 mg/dL [facility] Creatinine 0.77(L) 0.80 - 1.30 mg/dL [facility] Glucose 94 70 - 199 mg/dL [facility] Comment: Interpretive Data Fasting glucose >/= [...] interpretive data was last revised 2017. Calcium 8.9 8.5 - 10.3 mg/dL [facility] Bilirubin, total 0.5 0.1 - 1.2 mg/dL [facility] Protein, pl 5.3(L) 6.5 - 8.5 g/dL [facility] Albumin 3.8 3.5 - 5.0 g/dL [facility] Alk phos 231(H) 40 - 130 Units/L [facility] ALT 30 7 - 55 Units/L [facility] AST 41 10 - 50 Units/L [facility] Blood specimen (specimen) 02/16/2020 4:17 AM CDT 02/16/2020 4:31 AM CDT us Mary Araya PHOTONIC LABORATORY TECHNICIAN LAB BLOOD ORDERABLES Final R esult [facility] [place] [address] * Phosphorus (02/16/2020 4:17 AM CDT) [facility] Phosphorus, pl 4.3 2.3 - 4.5 mg/dL [facility] Blood specimen (specimen) 02/16/2020 4:17 AM CDT 02/16/2020 4:31 AM CDT us Mary Araya PHOTONIC LABORATORY TECHNICIAN LAB BLOOD ORDERABLES Final R esult Performing Organization Address City/[facility] Co de Phone Number [facility] [place] [address] * Magnesium (02/16/2020 4:17 AM CDT) [facility] Magnesium 1.7 1.4 - 2.5 mg/dL [facility] Blood specimen (specimen) 02/16/2020 4:17 AM CDT 02/16/2020 4:31 AM CDT us Mary Araya PHOTONIC LABORATORY TECHNICIAN LAB BLOOD ORDERABLES Final R esult Performing Organization Address City/[facility] Co de Phone Number [facility] [place] [address] * (ABNORMAL) CBC with auto differential (02/16/2020 4:17 AM CDT) [facility] WBC 7.6 3.8 - 9.9 K/cumm [facility] Hgb 14.5 13.0 - 17.5 g/dL [facility] Hct 41.8 38.9 - 50.3 % [facility] Plt 260 150 - 400 K/cumm [facility] MPV 9.8 9.1 - 12.3 fL [facility] RBC 4.45 4.30 - 5.80 M/cumm [facility] MCV 93.9 81.3 - 96.4 fL [facility] MCH 32.6 27.1 - 33.3 pg [facility] MCHC 34.7 32.3 - 35.7 g/dL [facility] RDW CV 15.5(H) 11.1 - 14.9 % [facility] RDW SD 53.5(H) 35.7 - 48.1 fL [facility] NRBC abs 0.00 0.00 - 0.01 K/cumm [facility] Blood specimen (specimen) 02/16/2020 4:17 AM CDT 02/16/2020 4:32 AM CDT Mary Araya NP LAB BLOOD ORDERABLES Final R esult [facility] [place] [address] * (ABNORMAL) Differential, auto (02/15/2020 3:54 PM CDT) Neutrophil abs 3.5 1.7 - 6.5 K/cumm [facility] Imm gran abs 0.1 0.0 - 0.1 K/cumm [facility] Lymphocyte abs 3.7(H) 0.8 - 3.3 K/cumm [facility] Monocyte abs 1.2(H) 0.2 - 0.8 K/cumm [facility] Eosinophil abs 0.1 0.0 - 0.5 K/cumm [facility] Basophil abs 0.2(H) 0.0 - 0.1 K/cumm [facility] Neutrophil pct 40.0 % [facility] Comment: Interpretive Data Percent cell count reference ranges are not reported, since discordance with absolute values may lead to misinterpretation of CBC data. Current Interpretive Data was last revised on 2018. Imm gran pct 1.0 % [facility] Comment: Interpretive Data Percent cell count reference ranges are not reported, since discordance with absolute values may lead to misinterpretation of CBC data. Current Interpretive Data was last revised on 2018. Lymphocyte pct 42.5 % [facility] Comment: Interpretive Data Percent cell count reference ranges are not reported, since discordance with absolute values may lead to misinterpretation of CBC data. Current Interpretive Data was last revised on 2018. Monocyte pct 13.3 % [facility] Comment: Interpretive Data Percent cell count reference ranges are not reported, since discordance with absolute values may lead to misinterpretation of CBC data. Current Interpretive Data was last revised on 2018. Eosinophil pct 1.5 % [facility] Comment: Interpretive Data Percent cell count reference ranges are not reported, since discordance with absolute values may lead to misinterpretation of CBC data. Current Interpretive Data was last revised on 2018. Basophil pct 1.7 % [facility] Comment: Interpretive Data Percent cell count reference ranges are not reported, since discordance with absolute values may lead to misinterpretation of CBC data. Current Interpretive Data was last revised on 2018. Blood specimen (specimen) 02/15/2020 3:54 PM CDT 02/15/2020 4:46 PM CDT us Mary Araya PHOTONIC LABORATORY TECHNICIAN LAB BLOOD ORDERABLES Final R esult Performing Organization Address [facility] de Phone Number [facility] [place] [address] * Fibrinogen (02/15/2020 3:54 PM CDT) Fibrinogen 299 170 - 400 mg/dL [facility] Blood specimen (specimen) 02/15/2020 3:54 PM CDT 02/15/2020 4:41 PM CDT us Mary Araya PHOTONIC LABORATORY TECHNICIAN LAB BLOOD ORDERABLES Final R esult Performing Organization Address [facility] de Phone Number [facility] [place] [address] * aPTT (02/15/2020 3:54 PM CDT) aPTT 31 25 - 37 sec [facility] Comment: Interpretive data Heparin therapeutic range: 60-90 seconds Range based on correlation with therapeutic heparin activity range of 0.3-0.7 units/ml. Current interpretive data was last revised on 2019. Blood specimen (specimen) 02/15/2020 3:54 PM CDT 02/15/2020 4:41 PM CDT us Mary Araya PHOTONIC LABORATORY TECHNICIAN LAB BLOOD ORDERABLES Final R esult Performing Organization Address City/[facility]/ZIP Co de Phone Number [facility] [place] [address] * Protime-INR (02/15/2020 3:54 PM CDT) PT 12.2 8.6 - 13.0 sec [facility] INR 1.1 0.8 - 1.2 [facility] Comment: Interpretive data Oral anticoagulant therapeutic ranges: Venous thromboembolism prophylaxis or treatment: 2.0-3.0 CARDIOLOGY Standard range: 2.0-3.0 High-intensity range: 2.5-3.5 Refer to indication-specific guidelines for appropriate target ranges for prosthetic heart valve replacement. Current interpretive data was last revised on 2019. Blood specimen (specimen) 02/15/2020 3:54 PM CDT 02/15/2020 4:41 PM CDT us Mary Araya PHOTONIC LABORATORY TECHNICIAN LAB BLOOD ORDERABLES Final R esult Performing Organization Address City/[facility] Co de Phone Number [facility] [place] [address] * Uric acid (02/15/2020 3:54 PM CDT) Uric acid 5.7 3.0 - 8.0 mg/dL [facility] Blood specimen (specimen) 02/15/2020 3:54 PM CDT 02/15/2020 4:46 PM CDT us Mary Araya PHOTONIC LABORATORY TECHNICIAN LAB BLOOD ORDERABLES Final R esult Performing Organization Address [facility] Co de Phone Number [facility] [place] [address] * (ABNORMAL) Lactate dehydrogenase (LD) (02/15/2020 3:54 PM CDT) Lactate dehydrogenase (LDH) 319(H) 100 - 250 Units/L [facility] Blood specimen (specimen) 02/15/2020 3:54 PM CDT 02/15/2020 4:46 PM CDT us Mary Araya PHOTONIC LABORATORY TECHNICIAN LAB BLOOD ORDERABLES Final R esult Performing Organization Address [facility] Co de Phone Number [place] [address] * Phosphorus (02/15/2020 3:54 PM CDT) [facility] Phosphorus, pl 3.6 2.3 - 4.5 mg/dL [facility] Blood specimen (specimen) 02/15/2020 3:54 PM CDT 02/15/2020 4:46 PM CDT us Mary Araya PHOTONIC LABORATORY TECHNICIAN LAB BLOOD ORDERABLES Final R esult Performing Organization Address [facility] Co de Phone Number [place] [address] * Magnesium (02/15/2020 3:54 PM CDT) [facility] Magnesium 1.7 1.4 - 2.5 mg/dL [facility] Blood specimen (specimen) 02/15/2020 3:54 PM CDT 02/15/2020 4:46 PM CDT us Mary Araya PHOTONIC LABORATORY TECHNICIAN LAB BLOOD ORDERABLES Final R esult Performing Organization Address [facility] Co de Phone Number [place] [address] * (ABNORMAL) Comprehensive metabolic panel (02/15/2020 3:54 PM CDT) [facility] Sodium 142 135 - 145 mmol/L [facility] Potassium, pl 4.2 3.3 - 4.9 mmol/L [facility] Chloride 108 97 - 110 mmol/L [facility] CO2 29 22 - 32 mmol/L [facility] Anion gap 5 2 - 15 mmol/L [facility] BUN 10 8 - 25 mg/dL [facility] Creatinine 0.95 0.80 - 1.30 mg/dL [facility] Glucose 92 70 - 199 mg/dL [facility] Comment: Interpretive Data Fasting glucose >/= [...] 2017. Calcium 9.1 8.5 - 10.3 mg/dL [facility] Bilirubin, total 0.4 0.1 - 1.2 mg/dL [facility] Protein, pl 5.7(L) 6.5 - 8.5 g/dL [facility] Albumin 4.0 3.5 - 5.0 g/dL [facility] Alk phos 251(H) 40 - 130 Units/L [facility] ALT 38 7 - 55 Units/L [facility] AST 45 10 - 50 Units/L [facility] Blood specimen (specimen) 02/15/2020 3:54 PM CDT 02/15/2020 4:46 PM CDT us Mary Araya PHOTONIC LABORATORY TECHNICIAN LAB BLOOD ORDERABLES Final R esult [facility] [place] [address] * (ABNORMAL) CBC with auto differential (02/15/2020 3:54 PM CDT) WBC 8.8 3.8 - 9.9 K/cumm [facility] Hgb 14.6 13.0 - 17.5 g/dL [facility] Hct 41.0 38.9 - 50.3 % [facility] Plt 253 150 - 400 K/cumm [facility] MPV 9.9 9.1 - 12.3 fL [facility] RBC 4.35 4.30 - 5.80 M/cumm [facility] MCV 94.3 81.3 - 96.4 fL [facility] MCH 33.6(H) 27.1 - 33.3 pg [facility] MCHC 35.6 32.3 - 35.7 g/dL [facility] RDW CV 15.3(H) 11.1 - 14.9 % [facility] RDW SD 53.5(H) 35.7 - 48.1 fL [facility] NRBC abs 0.00 0.00 - 0.01 K/cumm [facility] Blood specimen (specimen) 02/15/2020 3:54 PM CDT 02/15/2020 4:46 PM CDT Mary Araya PHOTONIC LABORATORY TECHNICIAN LAB BLOOD ORDERABLES Final R esult [facility] [place] [address] documented in this encounter Visit Diagnoses Diagnosis 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 History of liver transplant (CMS/HCC) (HCC) 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 Elevated LFTs Other abnormal blood chemistry documented in this encounter Administered Medications Inactive Administered Medications - up to 3 most recent administrations Medication Order MAR Action Action Date Dose Rate Site enoxaparin (LOVENOX) syringe 40 mg 40 mg, subcutaneous, Daily (for enoxaparin), First dose on Wed02/15/20 at 2100, Indications: Deep Vein Thrombosis PreventionIndications:De ep Vein Thrombosis Prevention Given 02/16/2020 9:52 PM CDT 40 mg Right Upper Abdomen Given 02/15/2020 8:13 PM CDT 40 mg Le ft Lower Abdomen gadoterate meglumine (DOTAREM) 0.5 mmol/mL injection 10.98 mL 10.98 mL (0.1 mmol/kg ? 54.9 kg), intravenous, Once in imaging, contrast, Starting on [facility] 02/17/20 at 0930, For 1 dose, Imaging Protocol Orders Given 02/17/2020 9:31 AM CDT 10 mL ganciclovir 270 mg in sodium chloride 0.9% 100 mL IVPB 270 mg (rounded from 274.5 mg = 5 mg/kg ? 54.9 kg), intravenous, at 105.4 mL/hr, Administer over 60 Minutes, Every 12 hours scheduled, First dose on Brenda 02/15/20 at 2100, Indications: Blood Stream/Endovascular InfectionIndications:Blood Stream/Endovascular Infection New Bag 02/17/2020 10:03 AM CDT 270 mg 105.4 mL/hr New Bag 02/16/2020 9:52 PM CDT 270 mg 105.4 mL/hr New Bag 02/16/2020 9:48 AM CDT 270 mg 105.4 mL/hr ganciclovir 270 mg in sodium chloride 0.9% 100 mL IVPB 270 mg (rounded from 274.5 mg = 5 mg/kg ? 54.9 kg), intravenous, at 105.4 mL/hr, Administer over 60 Minutes, Every 12 hours scheduled, First dose (after last modification) on [facility] 02/17/20 at 2200, Indications: Blood Stream/Endovascular InfectionIndications:Blood Stream/Endovascular Infection New Bag 02/17/2020 5:50 PM CDT 270 mg 1 05.4 mL/hr heparin 10 unit/mL flush 20-50 Units 20-50 Units (2-5 mL), intra-catheter, As needed, line care, with each use, Starting on [facility] 02/15/20 at 1430, Do not use with Groshong catheter. Flush volume based on line type, size, and protocol., Indications: Maintain Patency of Indwelling Vascular CatheterIndications:Maintain Patency of Indwelling Vascular Catheter Given 02/16/2020 2:55 PM CDT 50 Units heparin 10 unit/mL flush 50 Units 50 Units (5 mL), intra-catheter, Every 12 hours scheduled, First dose on [facility] 02/15/20 at 2100, Do not use with Groshong catheter, Indications: Maintain Patency of Indwelling Vascular CatheterIndications:Maintain Patency of Indwelling Vascular Catheter Given 02/17/2020 10:03 AM CDT 50 Units Given 02/16/2020 7:22 PM CDT 50 Units Given 02/16/2020 10:45 AM CDT 50 Units sodium chloride 0.9% flush 5-10 mL 5-10 mL, intra-catheter, Every 12 hours scheduled, First dose on [facility] 02/15/20 at 2100, Flush volume based on line type, size, and protocol. Given 02/17/2020 10:03 AM CDT 10 mL Given 02/16/2020 9:53 PM CDT 10 mL Given 02/16/2020 9:41 AM CDT 10 mL sodium chloride 0.9% IVPB 0-250 mL 0-250 mL, intravenous, As needed, flush tubing for blood product administration, Starting on [facility] 02/15/20 at 1430, Prime blood tubing and administer amount needed to clear line (usually 50-100 mL) after transfusion complete. New Bag 02/15/2020 8:18 PM CDT 250 mL tacrolimus (PROGRAF) capsule 0.5 mg 0.5 mg, oral, 2 times daily, First dose on Brenda 02/15/20 at 2100, Avoid grapefruit juice Given 02/17/2020 10:03 AM CDT 0.5 mg Given 02/16/2020 9:52 PM CDT 0.5 mg Given 02/16/2020 9:41 AM CDT 0.5 mg documented in this encounter Discontinued Medications Medication Sig Discontinue Reason Start Date End Da te ciprofloxacin (Cipro) 500 mg tabletIndications:absc ess Take 1 tablet (500 mg total) by mouth 2 (two) times a day for 14 days Stop Taking at Discharge 02/01/2020 02/17/2020 metroNIDAZOLE (Flagyl) 500 mg tabletIndications:Hist ory of liver transplant (CMS/HCC) (HCC),Liver abscess Take 1 tablet (500 mg total) by mouth 3 (three) times a day for 14 days Stop Taking at Discharge 02/01/2020 02/17/2020 valGANciclovir (VALCYTE) 450 mg tabletIndications:Othe r (complete free text reason below),CMV Viremia Take 2 tablets (900 mg total) by mouth 2 (two) times a day Stop Taking at Discharge 02/01/2020 02/17/2020 documented as of this encounter Active and Recently Administered Medications Times are shown in CDT. Scheduled Medication Order 02/15/2020 02/16/2020 02/17/2020 enoxaparin (LOVENOX) syringe 40 mg 40 mg, subcutaneous, Daily (for enoxaparin), First dose on [facility] 02/15/20 at 2100, Indications: Deep Vein Thrombosis Prevention 2012 (Given - Provider: Yulisa Galvan RN) 2151 (Given - Provider: Jerrod Mallory, SHAILESH) ganciclovir 270 mg in sodium chloride 0.9% 100 mL IVPB (CANCELED) 270 mg (rounded from 274.5 mg = 5 mg/kg ? 54.9 kg), intravenous, at 105.4 mL/hr, Administer over 60 Minutes, Every 12 hours scheduled, First dose on Brenda 02/15/20 at 2100, Indications: Blood Stream/Endovascular Infection 2013 (New Bag - Provider: Yulisa Galvan RN)214 (Stopped - Provider: Yulisa Galvan RN) 0948 (New Bag - Provider: Bonita Pantoja RN)1100 (Stopped - Provider: Bonita Pantoja, SHAILESH)2152 (New Bag - Provider: Jerrod Mallory, SHAILESH)2337 (Stopped - Provider: Jerrod Mallory, SHAILESH) 1003 (New Bag - Provider: Leida Chung, SHAILESH)1103 (Stopped - Provider: Leida Chung, SHAILESH) ganciclovir 270 mg in sodium chloride 0.9% 100 mL IVPB 270 mg (rounded from 274.5 mg = 5 mg/kg ? 54.9 kg), intravenous, at 105.4 mL/hr, Administer over 60 Minutes, Every 12 hours scheduled, First dose (after last modification) on 02/17/20 at 2200, Indications: Blood Stream/Endovascular Infection 1750 (New Bag - Provider: Leida Chung RN - Comment: patient discharging home)1853 (Stopped - Provider: Leida Chung RN) heparin 10 unit/mL flush 50 Units 50 Units (5 mL), intra-catheter, Every 12 hours scheduled, First dose on Brenda 02/15/20 at 2100, Do not use with Groshong catheter, Indications: Maintain Patency of Indwelling Vascular Catheter 2017 (Given - Provider: Yulisa Galvan RN) 1045 (Given - Provider: Bonita Pantoja, SHAILESH)1922 (Given - Provider: Bonita Pantoja RN) 1003 (Given - Provider: Leida Chung RN) sodium chloride 0.9 % irrigation 30 mL 30 mL, swish & spit, 4 times daily, First dose on Brenda 02/15/20 at 1700, Use as mouth rinse for oral care. 1644 (Not Given - Provider: Kaley Arreola RN - Reason: Patient/family refused)2017 (Not Given - Provider: Yulisa Galvan RN - Reason: Patient/family refused) 0800 (Not Given - Provider: Bonita Pantoja RN - Reason: Patient/family refused)1200 (Not Given - Provider: Bonita Pantoja RN - Reason: Patient/family refused)1700 (Not Given - Provider: Bonita Pantoja RN - Reason: Patient/family refused)2207 (Not Given - Provider: Jerrod Mallory RN - Reason: Patient/family refused) 1008 (Not Given - Provider: Leida Chung RN - Reason: Patient/family refused)1143 (Not Given - Provider: Leida Chung RN - Reason: Patient/family refused)1620 (Not Given - Provider: Leida Chung RN - Reason: Patient/family refused) sodium chloride 0.9% flush 5-10 mL 5-10 mL, intra-catheter, Every 12 hours scheduled, First dose on Brenda 02/15/20 at 2100, Flush volume based on line type, size, and protocol. 2018 (Given - Provider: Yulisa Galvan RN) 0941 (Given - Provider: Bonita Pantoja, SHAILESH)2153 (Given - Provider: Jerrod Mallory RN) 1003 (Given - Provider: Leida Chung RN) tacrolimus (PROGRAF) capsule 0.5 mg 0.5 mg, oral, 2 times daily, First dose on Brenda 02/15/20 at 2100, Avoid grapefruit juice 2012 (Given - Provider: Yulisa Galvan RN) 0941 (Given - Provider: Bonita Pantoja, SHAILESH)1803 (Given - Provider: Jerrod Mallory, RN) 1003 (Given - Provider: Leida Chung, SHAILESH) PRN Medication Order 02/15/2020 02/16/2020 02/17/2020 aluminum & magnesium tmhjovyou-wlfoobptfdk-qds henhydramine-lidocaine (MAGIC MOUTHWASH) suspension 1-1-1 15 mL, swish & swallow, 4 times daily PRN, other, mucositis, Starting on Brenda 02/15/20 at 1430, Indications: Chemotherapy-Induced Mucositis bacitracin-polymyxin B (POLYSPORIN) 500-10,000 unit/gram ointment tube 1 application 1 application (deactivated), topical, Every 4 hours PRN, wound care, Starting on Brenda 02/15/20 at 1430, Apply to affected area: other, Indications: Minor Bacterial Skin Infections camphor-menthoL (SARNA) 0.5-0.5 % lotion topical, Every 2 hours PRN, itching, Starting on Brenda 02/15/20 at 1430, Apply to affected area: other, Indications: Pruritus of Skin gadoterate meglumine (DOTAREM) 0.5 mmol/mL injection 10.98 mL (COMPLETED) 10.98 mL (0.1 mmol/kg ? 54.9 kg), intravenous, Once in imaging, contrast, Starting on 02/17/20 at 0930, For 1 dose, Imaging Protocol Orders 0931 (Given - Provider: Jean Carlos Martinez, RT - Comment: [id number]) heparin 10 unit/mL flush 20-50 Units 20-50 Units (2-5 mL), intra-catheter, As needed, line care, with each use, Starting on Brenda 02/15/20 at 1430, Do not use with Groshong catheter. Flush volume based on line type, size, and protocol., Indications: Maintain Patency of Indwelling Vascular Catheter 2173 (Given - Provider: Bonita Pantoja, SHAILESH) loperamide (IMODIUM) capsule 2 mg 2 mg, oral, Every 1 hour PRN, diarrhea, after each liquid stool (ensure that at least one C. diff assay is negative prior to initiating), Starting on Brenda 02/15/20 at 1430, Total loperamide dose should not exceed 16 mg in 24 hours., Indications: diarrhea magnesium sulfate 4 g/100 mL in water (premix) 4 g 4 g, intravenous, Administer over 90 Minutes, Every 4 hours PRN, magnesium replacement, Starting on Brenda 02/15/20 at 1432, For magnesium level of 1.2-1.5 mg/dL, Indications: hypomagnesemia magnesium sulfate 6 g in sodium chloride 0.9% 250 mL IVPB 6 g, intravenous, at 131 mL/hr, Administer over 120 Minutes, Every 4 hours PRN, magnesium replacement, Starting on Brenda 02/15/20 at 1432, For magnesium level less than 1.2 mg/dL and call/notify provider., Indications: hypomagnesemia polyvinyl alcohol-povidone (REFRESH CLASSIC) 1.4-0.6 % ophthalmic solution 2 drop 2 drop, each eye, Every 4 hours PRN, dry eyes, Starting on Brenda 02/15/20 at 1430, Indications: Dry Eye potassium chloride 40 mEq/100 mL in sterile water (premix) 40 mEq 40 mEq, intravenous, at 25 mL/hr, Administer over 4 Hours, Every 4 hours PRN, potassium replacement, Starting on Brenda 02/15/20 at 1432, For potassium less than 2.6 mmol/L, give 40 mEq X1 dose and call prescriber for additional orders; For potassium 2.6-2.9 mmol/L, give 40 mEq X2 doses and obtain stat potassium level after 2nd dose; For potassium 3-3.1 mmol/L, give 40 mEq X2 doses; For potassium 3.2-3.5 mmol/L, give 40 mEq X1 dose (may use oral if tolerated). Central line only, Indications: hypokalemia potassium chloride ER (KLOR-CON) extended release tablet 40 mEq 40 mEq, oral, Every 4 hours PRN, potassium replacement, Starting on Brenda 02/15/20 at 1432, For potassium 3.2-3.5 mmol/L, give 40 mEq X1 dose (may use IV if oral not tolerated). Do not crush, chew, cut, dissolve, open or otherwise manipulate tablet/capsule., Indications: hypokalemia pramoxine-zinc oxide (TRONOLANE) 1-5 % rectal cream rectal, 3 times daily PRN, hemorrhoids, Starting on Brenda 02/15/20 at 1430, Apply to affected area: other, Indications: Hemorrhoids sodium chloride (OCEAN) 0.65 % nasal spray 2 spray 2 spray, each nostril, Every 1 hour PRN, other, dryness, Starting on Brenda 02/15/20 at 1430, Indications: Dry Nose sodium chloride 0.9% flush 5-20 mL 5-20 mL, intra-catheter, As needed, line care, with each use, Starting on Brenda 02/15/20 at 1431, Flush volume based on line type, size, and protocol. sodium chloride 0.9% IVPB 0-250 mL 0-250 mL, intravenous, As needed, flush tubing for blood product administration, Starting on Brenda 02/15/20 at 1430, Prime blood tubing and administer amount needed to clear line (usually 50-100 mL) after transfusion complete. 2018 (New Bag - Provider: Yulisa Galvan RN) white petrolatum-mineral oiL (EUCERIN) cream topical, Every 2 hours PRN, dry skin, Starting on Brenda 02/15/20 at 1430, Apply to affected area: other, Indications: Dry Skin documented in this encounter Orders Medications Ordered That John ht Not Have Been Administered Count Last Ordered Date First Ordered Date aluminum & magnesium bkmfqcylu-fdfykovpvzn-hrmlqwokvoisvvv-lido yanely (MAGIC MOUTHWASH) suspension 1-1-1 02/15/2020 bacitracin-polymyxin B (POLY SPORIN) 500-10,000 unit/gram ointment tube 1 application 02/15/2020 camphor-menthoL (SARNA) 0.5-0.5 % lotion 02/15/2020 lidocaine PF (XYLOCAINE) 10 mg/mL (1 %) preservative free injection 10-20 mg 02/15/2020 loperamide (IMODIUM) capsule 2 mg 020 magnesium sulfate 4 g/100 mL in water (premix) 4 g 02/15/2020 magnesium sulfate 6 g in sod ium chloride 0.9% 250 mL IVPB 02/15/2020 polyvinyl alcohol-povidone ( REFRESH CLASSIC) 1.4-0.6 % ophthalmic solution 2 drop 02/15/2020 potassium chloride 40 mEq/10 0 mL in sterile water (premix) 40 mEq 1 02/15/2020 potassium chloride ER (KLOR- CON) extended release tablet 40 mEq 1 02/15/2020 pramoxine-zinc oxide (TRONOL ANE) 1-5 % rectal cream 1 02/15/2020 sodium chloride (OCEAN) 0.65 % nasal spray 2 spray 1 02/15/2020 sodium chloride 0.9 % irrigation 30 mL 1 sodium chloride 0.9% flush 5-20 mL 1 2019 white petrolatum-mineral oiL (EUCERIN) cream 1 02/15/2020 Lab Orders Without Results Count Last Ordered D ate First Ordered Date CYTOMEGALOVIRUS (CMV) DNA, QUANT GEN LAB 1 02/16/2020 Nursing Count Last Ordered Date First Orde red Date WEIGH PATIENT 1 02/15/2020 Consult Count Last Ordered Date First Orde red Date CONSULT TO TRANSPLANT INFECTIOUS DISEASE 1 02/16/2020 IP CONSULT [facility] 1 020 IP CONSULT TO GASTROENTEROLOGY 1 02/15/2020 IP CONSULT TO VASCULAR ACCESS TEAM 1 2019 documented in this encounter Care Teams Designer Writer Relationship Specialty Start Date End Date Guero Colunga DO PCP - General Internal Medicine 03/22/19 04/18/23 Amber Montesinos, SHAILESH Airplane Captain Transplant 11/17/19 Jil Duncan MD Consulting Physician Infectious Diseases 01/10/20 documented as of this encounter
--- OUTSIDE RECORDS SUMMARY | 2024-10-28 06:22 | XMS_ITS | Encounter Summary ---
Author Organization [facility] Home Care Servic es Address [address] [place] [address] Phone Care Team Providers Care City Surveyor Name Role Phone Guero Colunga Primary Care Provider [phone] Amber Montesinos RN Unavailable [phone] Jil Duncan MD Unavailable [phone] Reason for Visit * Auth/Cert Specialty Diagnoses / Procedures Referred By Contac t Referred To Contact Referral ID Status Reason Start Date Expiration Date Visits Re quested Visits Authorized [id number] 1 1 Encounter Details Date Type Department Care Team (Late st Contact Info) Description 02/19/2020 Home Care Visit [facility] [address] [place] [address] Cassi Joyce, SHAILESH CASE COMMUNICATION Social History Tobacco Use Types Packs/Day Years Used Date Smoking Tobacco: Never Smokeless Tobacco: Never Alcohol Use Standard Drinks/Week Comments Yes 0 (1 standard drink = 0.6 oz pur e alcohol) occassional Sex and Gender Information Value Date Recorded Sex Assigned at Not on file 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 Gender Identity Not on file Sexual Orientation Straight 08/22/2021 9 :23 AM CDT documented as of this encounter Plan of Treatment Scheduled Procedures Name Priority Associated Diagnoses Date/Ti me COLONOSCOPY Encounter for screening for colorectal cancer in high risk patient Family history of rectal cancer documented as of this encounter Visit Diagnoses Not on filedocumented in this encounter Care Teams City Surveyor Relationship Specialty Start Date End Date CristineGuero galiciaDO PCP - General Internal Medicine 03/22/19 04/18/23 Amber Montesinos, SHAILESH Arts Administrator Or Manager Transplant 11/17/19 Jil Duncan MD Consulting Physician Infectious Diseases 01/10/20 documented as of this encounter
--- OUTSIDE RECORDS SUMMARY | 2024-10-28 06:22 | XMS_ITS | Encounter Summary ---
Author Organization [facility] Healthcare Address [address] [place] [address] Care Team Providers Care Nitroglycerin Separator Operator Name Role Phone Guero Colunga DO Primary Care Provider [phone] Amber Montesinos RN Unavailable [phone] Jil Duncan MD Unavailable [phone] Encounter Details Date Type Department Care Team (Late st Contact Info) Description 02/13/2020 Telephone [facility] Transplant Liver [address] [facility] [id number] [place] [address] Amber Montesinos RN Social History Tobacco Use Types Packs/Day Years Used Date Smoking Tobacco: Never Smokeless Tobacco: Never Alcohol Use Standard Drinks/Week Comments Yes 0 (1 standard drink = 0.6 oz pur e alcohol) occassional Sex and Gender Information Value Date Recorded Sex Assigned at Not on file 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 No / Unsure 01/17/2020 7:12 AM CDT documented as of this encounter Miscellaneous Notes * Telephone Encounter - Amber Vargas RN - 02/13/2020 4:25 PM CDT Called mother to update on patient's labs. Let her know that enzymes are improving. Spoke to [facility] player services representative today and CMV PCR would likely be back by or Wednesday. Discussed tac level- unclear if patient took medication before blood draw since he went in the afternoon. Let mother know that we would address after CMV PCR resulted. Pt only taking 0.5mg BID documented in this encounter Plan of Treatment Scheduled Procedures Name Priority Associated Diagnoses Date/Ti me COLONOSCOPY Encounter for screening for colorectal cancer in high risk patient Family history of rectal cancer documented as of this encounter Visit Diagnoses Not on filedocumented in this encounter Care Teams Nitroglycerin Separator Operator Relationship Specialty Start Date End Date Guero Colunga DO PCP - General Internal Medicine 03/22/19 04/18/23 Amber Montesinos RN Fit Model Transplant 11/17/19 Jil Duncan MD Consulting Physician Infectious Diseases 01/10/20 documented as of this encounter
--- OUTSIDE RECORDS SUMMARY | 2024-10-28 06:22 | XMS_ITS | Encounter Summary ---
Author Organization [facility] Home Care Servic es Address [address] [place] [address] Phone Care Team Providers Care Training Facilitator Name Role Phone Guero Colunga DO Primary Care Provider [phone] Amber Montesinos RN Unavailable [phone] Jil Duncan MD Unavailable [phone] Encounter Details Date Type Department Care Team (Late st Contact Info) Description 02/18/2020 Plan of Care Documentation [facility] [address] [place] [id number] Social History Tobacco Use Types Packs/Day Years Used Date Smoking Tobacco: Never Smokeless Tobacco: Never Alcohol Use Standard Drinks/Week Comments Yes 0 (1 standard drink = 0.6 oz pur e alcohol) occassional Sex and Gender Information Value Date Recorded Sex Assigned at Not on file 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 Gender Identity Not on file Sexual Orientation Straight 08/22/2021 9: 23 AM CDT documented as of this encounter Plan of Treatment Scheduled Procedures Name Priority Associated Diagnoses Date/Ti me COLONOSCOPY Encounter for screening for colorectal cancer in high risk patient Family history of rectal cancer documented as of this encounter Visit Diagnoses Not on filedocumented in this encounter Care Teams Training Facilitator Relationship Specialty Start Date End Date Guero Colunga DO PCP - General Internal Medicine 03/22/19 04/18/23 Amber Montesinos, RN Audio Production Instructor Transplant 11/17/19 Jil Duncan MD Consulting Physician Infectious Diseases 01/10/20 documented as of this encounter
--- OUTSIDE RECORDS SUMMARY | 2024-10-28 06:22 | XMS_ITS | Encounter Summary ---
Author Organization [facility] Home Care Servic es Address [address] [place] [address] Phone Care Team Providers Care Hvac Service Tech Name Role Phone Guero Colunga Primary Care Provider [phone] Amber Montesinos RN Unavailable [phone] Jil Duncan MD Unavailable [phone] Reason for Visit * Auth/Cert Specialty Diagnoses / Procedures Referred By Contac t Referred To Contact Referral ID Status Reason Start Date Expiration Date Visits Re quested Visits Authorized [id number] 1 1 Encounter Details Date Type Department Care Team (Late st Contact Info) Description 03/06/2020 4:45 PM CDT Home Care Visit [facility] [address] [place] [address] Bria Briggs RN SN HOME VISIT Social History Tobacco Use Types Packs/Day Years Used Date Smoking Tobacco: Never Smokeless Tobacco: Never Alcohol Use Standard Drinks/Week Comments Yes 0 (1 standard drink = 0.6 oz pur e alcohol) occassional Sex and Gender Information Value Date Recorded Sex Assigned at Not on file 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 Gender Identity Not on file Sexual Orientation Straight 08/22/2021 9: 23 AM CDT documented as of this encounter Last Filed Vital Signs Vital Sign Reading Time Taken Comments Blood Pressure 104/65 03/06/2020 5:37 PM CDT Pulse 75 03/06/2020 5:37 PM CDT Temperature 37.2 ??C (99 ??F) 03/06/2020 5:37 PM CDT Respiratory Rate - - Oxygen Saturation 98% 03/06/2020 5:37 PM CDT Inhaled Oxygen Concentration - - [...] mL, intravenous, As needed, patency, Starting on Wed03/08/20 at 1444, Indications: Maintain Patency of Indwelling Vascular CatheterIndications:Maintain Patency of Indwelling Vascular Catheter Given 03/06/2020 5:34 PM CDT 5 mL sodium chloride 0.9 %, flush, (SALINE FLUSH INJ) 10 mL, intravenous, As needed, patency, Starting on Wed03/08/20 at 1445, Indications: Maintain Patency of Indwelling Vascular CatheterIndications:Maintain Patency of Indwelling Vascular Catheter Given 03/06/2020 5:34 PM CDT 10 mL documented in this encounter Home Health Visit - Care Plan Visit Details Visit Type -SN Home Visit Discipline -Senior Living Problems Problem Description Start Date Status Goals Interve ntions IV Therapy-Manag ement, Education, and Maintenance Disciplines: Senior Living Teaching and learning needs for performing home IV therapy 02/18/2020 Active - 1 problem intervention scheduled/document ed in this visit Monitor patient's vital signs every home health visit Disciplines: Senior Living Monitor patient's vital signs every home health visit. 02/18/2020 Active 1 goal linked to scheduled/documen mohsen intervention 1 goal intervention scheduled/document ed in this visit Collect Specimen/Lab Draw Disciplines: Senior Living Need to collect specimen sample 02/18/2020 Active - 1 problem intervention scheduled/document ed in this visit Goals Goal Associated Problem Outcome Goal Met? Visit Notes Measure vital signs during every home health visit during episode of care Description: Home special education superintendent to measure vital signs during every home [...] PICC Problem:IV Therapy-Management, Education, and Maintenance Completed PICC Line dressing change completed with sterile dressing kit. No complications, flushes easily with blood return. Monitor Vital Signs Description: Monitor blood pressure, pulse, oxygen saturation, respirations Problem:Monitor patient's vital signs every home health visit Goal:Measure vital signs during every home health visit during episode of care Completed Lab draw Description: Labs CMV PCR, CBC c diff and CMP 1x/week Problem:Collect Specimen/Lab Draw Completed LABS: CMV-PCR(LAV tube); CMP; CBC w/diff. Submitted 2-LAV tubes TTL. documented in this encounter Care Teams Hvac Service Tech Relationship Specialty Start Date End Date Guero Colunga DO PCP - General Internal Medicine 03/22/19 04/18/23 Amber Montesinos RN Digital Marketing Specialist Transplant 11/17/19 Jil Duncan MD Consulting Physician Infectious Diseases 01/10/20 documented as of this encounter
--- OUTSIDE RECORDS SUMMARY | 2024-10-28 06:22 | XMS_ITS | Encounter Summary ---
Author Organization [facility] Home Care Serv[facility] es Address [address] [place] [address] Phone Care Team Providers Care Advertising Production Manager Name Role Phone Guero Colunga Primary Care Provider Amber Montesinos RN Unavailable [phone] Jil Duncan MD Unavailable [phone] Reason for Visit * Reason Comments Infection * Auth/Cert Specialty Diagnoses / Procedures Referred By Sascha t Referred To Contact Referral ID Status Reason Start Date Expiration Date Visits Re quested Visits Authorized [id number] 1 1 Encounter Details Date Type Department Care Team (Late st Contact Info) Description 02/22/2020 4:00 PM CDT Home Care Visit [facility] [address] [place] [address] Rosalio Montana RN SN HOME VISIT Social History Tobacco Use Types Packs/Day Years Used Date Smoking Tobacco: Never Smokeless Tobacco: Never Alcohol Use Standard Drinks/Week Comments Yes 0 (1 standard drink = 0.6 oz pur e alcohol) occassional Sex and Gender Information Value Date Recorded Sex Assigned at Not on file 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 Gender Identity Not on file Sexual Orientation Straight 08/22/2021 9: 23 AM CDT documented as of this encounter Last Filed Vital Signs Vital Sign Reading Time Taken Comments Blood Pressure 98/66 02/22/2020 4:10 PM CDT Pulse 80 02/22/2020 4:10 PM CDT Temperature 36.2 ??C (97.1 ??F) 02/22/2020 4:10 PM CD T Respiratory Rate 18 02/22/2020 4:10 PM CDT Oxygen Saturation 98% 02/22/2020 4:10 PM CDT Inhaled Oxygen Concentration - - [...] mL, intravenous, As needed, patency, Starting on Wed02/23/20 at 2004, Indications: Maintain Patency of Indwelling Vascular CatheterIndications:Maintain Patency of Indwelling Vascular Catheter Given 02/22/2020 4:00 PM CDT 5 mL sodium chloride 0.9 %, flush, (SALINE FLUSH INJ) 10 mL, intravenous, As needed, patency, Starting on Wed02/23/20 at 2006, Indications: Maintain Patency of Indwelling Vascular CatheterIndications:Maintain Patency of Indwelling Vascular Catheter Given 02/22/2020 4:00 PM CDT 10 mL documented in this encounter Home Health Visit - Care Plan Visit Details Visit Type -SN Home Visit Discipline -Senior Care Problems Problem Description Start Date Status Goals Interve ntions IV Therapy-Manag ement, Education, and Maintenance Disciplines: Senior Care Teaching and learning needs for performing home IV therapy 02/18/2020 Active - 1 problem intervention scheduled/document ed in this visit Medications Disciplines: Senior Care Management of home medications 02/18/2020 Active 1 goal linked to scheduled/documen mohsen intervention 1 goal intervention scheduled/document ed in this visit Monitor patient's vital signs every home health visit Disciplines: Senior Care Monitor patient's vital signs every home health visit. 02/18/2020 Active 1 goal linked to scheduled/documen mohsen intervention 1 goal intervention scheduled/document ed in this visit Infection Prevention Disciplines: Senior Care Infection Prevention 02/18/2020 Active 1 goal linked to scheduled/documen mohsen intervention 1 goal intervention scheduled/document ed in this visit Collect Specimen/Lab Draw Disciplines: Senior Care Need to collect specimen sample 02/18/2020 Active [...] visit during episode of care Description: Home home health clinician to measure vital signs during every [...] dressing, new clave added and taped securely Instruct on High Risk Medications Description: Instruct patient/caregiver on high-risk/high-alert medications, including: GANCICLOVIR, immunosuppressant, TACROLIMUS Problem:Medications Goal:Understand and follow medication therapy Completed reviewed iv ganciclovir s/e and if some one admin iv med must wear gloves good understanding Monitor Vital Signs Description: Monitor blood pressure, pulse, oxygen saturation, respirations Problem:Monitor patient's vital signs every home health visit Goal:Measure vital signs during every home health visit during episode of care Completed vss bp normally low Educate Patient on Infection Prevention Description: Instruct patient on signs and symptoms of infection IE: fever, odor, change in color, increased amount of drainage, purulent drainage, warmth. Problem:Infection Prevention Goal:Verbalize signs of infection Completed reviewed good handwashing, dairy technician with all aspects of iv admin, and keeping picc site clean and dry and dressing occlusive at all times pt verbalized good understanding Lab draw Description: Labs CMV PCR, CBC c diff and CMP 1x/week Problem:Collect Specimen/Lab Draw Completed rn obtained labs cbc cmp cmv pcr to [facility] documented in this encounter Care Teams Advertising Production Manager Relationship Specialty Start Date End Date Guero Colunga DO PCP - General Internal Medicine 03/22/19 04/18/23 Amber Montesinos RN Director Of Agronomy Transplant 11/17/19 Jil Duncan MD Consulting Physician Infectious Diseases 01/10/20 documented as of this encounter
--- OUTSIDE RECORDS SUMMARY | 2024-10-28 06:22 | XMS_ITS | Encounter Summary ---
Author Organization [facility] Healthcare Address [address] [place] [address] Care Team Providers Care Automotive Paint Technician Name Role Phone Guero Colunga DO Primary Care Provider [phone] Amber Montesinos RN Unavailable [phone] Jil Duncan MD Unavailable [phone] Encounter Details Date Type Department Care Team (Late st Contact Info) Description 02/15/2020 Telephone [facility] Trans[facility] Liver [address] [facility] [id number] [place] [address] Amber Montesinos RN Social History Tobacco Use Types Packs/Day Years Used Date Smoking Tobacco: Never Smokeless Tobacco: Never Alcohol Use Standard Drinks/Week Comments Yes 0 (1 standard drink = 0.6 oz pur e alcohol) occassional Sex and Gender Information Value Date Recorded Sex Assigned at Not on file 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 Gresham's note. Pt is to be admitted for IV ganciclovir. Called firm chief and spoketo Dr Ervin; patient accepted for medicine service. Called and spoke to patient's mother, Brooklynn. Patient upset about having to be admitted into the hospital. Tried to reassure patient that he is young and healthy and we do not want to keep him longer than necessary. Mother is understanding about ne ed for IV medication. Talked with mother also about COVID visitor restriction. Reassured and patient that hospital is taking necessary measures to ensure patient's safety during the COVID pandemic. Patient fearful of being admitted into the hospital at this time. Did COVID screen for admission. Called admitting and they have beds available. Pt's mother updated that they should report to admitting today. Let mother know to please call coordinator if there are any questions or concerns and that I am happy to call and update the mother since she cannot be there with patient. Emailed Dr. Coon- he has notified NITZA per firm chief request. Pt will arrive to hospital this morning. documented in this encounter Plan of Treatment Scheduled Procedures Name Priority Associated Diagnoses Date/Ti me COLONOSCOPY Encounter for screening for colorectal cancer in high risk patient Family history of rectal cancer documented as of this encounter Visit Diagnoses Not on filedocumented in this encounter Care Teams Automotive Paint Technician Relationship Specialty Start Date End Date Guero Colunga DO PCP - General Internal Medicine 03/22/19 04/18/23 Amber Montesinos RN Spanish Professor Transplant 11/17/19 Jil Duncan MD Consulting Physician Infectious Diseases 01/10/20 documented as of this encounter
--- OUTSIDE RECORDS SUMMARY | 2024-10-28 06:22 | XMS_ITS | Encounter Summary ---
Author Organization [facility] Address [address] [place] [address] Phone Care Team Providers Care Operations Research Engineer Name Role Phone Guero Colunga DO Primary Care Provider [phone] Amber Montesinos RN Unavailable [phone] Jil Duncan MD Unavailable [phone] Encounter Details Date Type Department Care Team (Late st Contact Info) Description 02/15/2020 Documentation [facility] Gastroenterology [address] [facility] [address] [place] [id number] Theodore Gresham MD [address] [facility] [address] [place] [address] Social History Tobacco Use Types Packs/Day Years Used Date Smoking Tobacco: Never Smokeless Tobacco: Never Alcohol Use Standard Drinks/Week Comments Yes 0 (1 standard drink = 0.6 oz pur e alcohol) occassional Sex and Gender Information Value Date Recorded Sex Assigned at Not on file 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 No / Unsure 01/17/2020 7:12 AM CDT documented as of this encounter Progress Notes * Theodore Gresham MD - 02/15/2020 7:51 AM CDT This note is in follow up to the CMV DNA PCR on Beka Nichols from 02/09/2020. Mr. 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 His most recent chemotherapy was Dec 2017 (dose adjusted EPOCH-R). More recently, he had a right cervical LN that was EBV positive withfollicular hyperplasia. 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 At some times this has been below the lower limits of quantification, but since June 2019, the CMV has been 2-3 logIU/mL onValganciclovir 900 mg bid. On February 09, 2020, the CMV DNA was 3.57 logIU/mL. I spoke with Dr. 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 Clinically, Mr. Nichols feels well. I do not think the CMV is tissue invasive, nor do I think it is playing a part in his liver test abnormalities. I do have concerns about persistent viremia with ongoing exposure to Valcyte, specifically, if thiswould eventually result in tissue invasive disease and promote Valcyte resistance. Also, to consider is the risk of hospitalization during the COVID-19 pandemic. My recommendation was for hospitalization to start IV Ganciclovir, which would be continued until CMV DNA PCR is negative, and then continue suppressive therapy with Valcyte. I spoke with Mr. Nichols and his mom and explained to them my thinking. Beka is not happy with having to be hospitalized buthe understands of the rationale. Dr. Duncan also was supportive of the plan. Please schedule directadmission of the patient for CMV viremia for the initiation of IV ganciclovir. documented in this encounter Plan of Treatment Scheduled Procedures Name Priority Associated Diagnoses Date/Ti me COLONOSCOPY Encounter for screening for colorectal cancer in high risk patient Family history of rectal cancer documented as of this encounter Visit Diagnoses Not on filedocumented in this encounter Care Teams Operations Research Engineer Relationship Specialty Start Date End Date Guero Colunga DO PCP - General Internal Medicine 03/22/19 04/18/23 Amber Montesinos, SHAILESH Cake Wringer Transplant 11/17/19 Jil Duncan MD Consulting Physician Infectious Diseases 01/10/20 documented as of this encounter
--- OUTSIDE RECORDS SUMMARY | 2024-10-28 06:22 | XMS_ITS | Encounter Summary ---
Author Organization [facility] Address [address] [place] [address] Phone Care Team Providers Care Pv Design And Installation Technician Name Role Phone Guero Colunga DO Primary Care Provider [phone] Amber Montesinos RN Unavailable [phone] Jil Duncan MD Unavailable [phone] Encounter Details Date Type Department Care Team (Late st Contact Info) Description 02/15/2020 Telephone [facility] Oncology [facility] 7[address] [place] [address] [place] [address] Samreen Greene RN Social History Tobacco Use Types Packs/Day Years Used Date Smoking Tobacco: Never Smokeless Tobacco: Never Alcohol Use Standard Drinks/Week Comments Yes 0 (1 standard drink = 0.6 oz pur e alcohol) occassional Sex and Gender Information Value Date Recorded Sex Assigned at Not on file 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 No / Unsure 01/17/2020 7:12 AM CDT documented as of this encounter Miscellaneous Notes * Telephone Encounter - Samreen Greene RN - 02/15/2020 10:42 AM CDT Brooklynn called to update our office that Beka's CMV was elevated again. Dr. Gresham is wanting to admit him for IV valganciclovir. I called Brooklynn back and she shared that Beka is very nervous about going to the Medicine floor. Unfortunately, Dr. Gresham cannot admit to Oncology. After discussion with Dr. Gillespie, we will admit the patient to the [facility] under her care. Dr. Gresham will follow the patient this way and be able to still advise on treatment plan for his elevated CMV. Brooklynn and Beka were relieved tohear this news. Admitting will call them directly when the bed is ready. Report will be called by Amber Vargas RN. We will monitor his admission closely and they know to call with any questions or concerns in the interim. documented in this encounter Plan of Treatment Scheduled Procedures Name Priority Associated Diagnoses Date/Ti me COLONOSCOPY Encounter for screening for colorectal cancer in high risk patient Family history of rectal cancer documented as of this encounter Visit Diagnoses Not on filedocumented in this encounter Care Teams Pv Design And Installation Technician Relationship Specialty Start Date End Date Guero Colunga DO PCP - General Internal Medicine 03/22/19 04/18/23 Amber Montesinos RN Elementary School Counselor Transplant 11/17/19 Jil Duncan MD Consulting Physician Infectious Diseases 01/10/20 documented as of this encounter
--- OUTSIDE RECORDS SUMMARY | 2024-10-28 06:23 | XMS_ITS | Encounter Summary ---
Author Organization [facility] Healthcare Address [address] [place] [address] Care Team Providers Care Bead Filler Name Role Phone Guero Colunga DO Primary Care Provider [phone] Amber Montesinos RN Unavailable [phone] Jil Duncan MD Unavailable [phone] Reason for Referral * Diagnostic Imaging (Routine) - Closed Specialty Diagnoses / Procedures Referred By Contac t Referred To Contact Radiology Diagnoses History of liver transplant (CMS/HCC) (HCC) Elevated liver enzymes Procedures MRI Abdomen MRCP W WO Contrast Theodore Gresham MD Phone: tel: fax: [address] [phone] Referral ID Status Reason Start Date Expiration Date Visits Re quested Visits Authorized [id number] Closed 01/12/2020 07/23/2021 1 1 Encounter Details Date Type Department Care Team (Late st Contact Info) Description 01/12/2020 Telephone [facility] Transplant Liver [phone] [place] [address] Amber Montesinos RN Social History Tobacco Use Types Packs/Day Years Used Date Smoking Tobacco: Never Smokeless Tobacco: Never Alcohol Use Standard Drinks/Week Comments Yes 0 (1 standard drink = 0.6 oz pur e alcohol) occassional Sex and Gender Information Value Date Recorded Sex Assigned at Not on file 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 Gresham. Pt continues to have increase in alk phos and GGT. Dr. Gresham would like pt to undergo MRCP of abdomen. Discussed with Dr. Lemus that first available appointment for pt is on January 30. Also discussed patient's labs with Dr. Duncan. Testing ordered per MD [facility] in [facility]: S. histoplasma serologies,u rine histo antigen , S crypto antigen and TSPOT . Emailed patient's mother a copy oftesting needed so lab does not miss testing- pt is going to get his labs done before his apt with Dr. Gillespie. documented in this encounter Plan of Treatment Scheduled Procedures Name Priority Associated Diagnoses Date/Ti sc COLONOSCOPY Encounter for screening for colorectal cancer in high risk patient Family history of rectal cancer documented as of this encounter Results * MRI Abdomen MRCP W WO Contrast (2020 8:00 AM CDT) Anatomical Region Laterality Modality Body N/A Magnetic Resonan ce 2020 8:46 AM CDT Impressions 2020 8:46 AM CDT 1. ??New 2.7 cm peripherally hyperenhancing lesion with progressive central enhancement along with internal areas of necrosis, located within the transplant liver segment IVb. ??Although this lesion could represent hepatic involvement of patient's known post transplant lymphoproliferative disorder, the appearance is somewhat atypical for lymphoma. ??Primary hepatic malignancy such as cholangiocarcinoma can be considered. ??The pattern of diffusion restriction would make an abscess less likely. ??Recommend biopsy. ??This lesion is amenable to ultrasound-guided tissue sampling. 2. ??No evidence of biliary obstruction. 3. ??Extensive retroperitoneal, mesenteric, and posterior mediastinal as well as right cardiophrenic angle lymphadenopathy compatible with patient's known post transplant lymphoproliferative disorder, similar in appearance to PET/CT from 10/12/2019. Electronically signed by: Lamar Toscano M.D. Narrative 2020 8:46 AM CDT EXAMINATION: 1. MAGNETIC RESONANCE IMAGING OF THE ABDOMEN WITH AND WITHOUT CONTRAST 2. THREE DIMENSIONAL RECONSTRUCTION OF THE BILIARY TREE AND PANCREATIC DUCT HISTORY: 24-year-old man who is status post liver transplant on 03/03/2009 for autoimmune hepatitis, complicated by posttransplant lymphoproliferative disorder, now with increasing liver enzymes. TECHNIQUE: Magnetic resonance imaging of the abdomen was performed prior to and following the uneventful administration of intravenous Gadolinium contrast. The raw data was processed on the scanner by the technologist for 3 dimensional reconstructions of the intrahepatic ducts, extrahepatics ducts, and pancreatic duct. Protocol: Liver MRCP Contrast: Dotarem 10 mL COMPARISON: PET/CT from 10/12/2019, CT chest abdomen and pelvis from 12/28/2018, and MR abdomen from 12/05/2018. FINDINGS: Liver: Postsurgical changes of orthotopic liver transplant of the left hepatic lobe are seen. ??There is no steatosis or iron deposition within the transplant liver. ??The hepatic surface is smooth. ?? - Bile ducts: No intrahepatic biliary ductal dilation is seen. - Focal liver lesions: There is a mildly T1 hypointense and T2 hyperintense lesion within the hepatic segment IVb with peripheral predominant arterial phase hyperenhancement and corresponding peripheral diffusion restriction. ??There is progressive central enhancement on the subsequent postcontrast sequences. ??The lesion measures 2.7 x 1.7 cm and there is surrounding hepatic parenchymal hyperemia and transient hepatic intensity difference. ??Internal necrotic change is also present within this lesion. ?? Scattered foci of arterial hyperenhancement within the hepatic segment 4B become isointense to the liver on the subsequent postcontrast sequences, likely representing transient hepatic intensity difference. - Vasculature: The abdominal aorta is normal in course and caliber. The portal an hepatic veins are patent. Gallbladder: Surgically absent. Pancreas: Normal. Spleen: Surgically absent. Adrenals: Normal. Kidneys: Normal. ??No hydronephrosis. Other Findings: There is no ascites. ??The marrow signal intensity is normal. ??The visualized small and large bowel loops are nondilated. Extensive retroperitoneal, gastrohepatic and mesenteric lymphadenopathy within the abdomen and posterior mediastinal lymphadenopathy in the visualized chest is not significantly changed when correlated with the PET/CT from 10/12/2019. Procedure Note Lamar Toscano MD - 2020 EXAMINATION: 1. MAGNETIC RESONANCE IMAGING OF THE ABDOMEN WITH AND WITHOUT CONTRAST 2. THREE DIMENSIONAL RECONSTRUCTION OF THE BILIARY TREE AND PANCREATIC DUCT HISTORY: 24-year-old man who is status post liver transplant on 03/03/2009 for autoimmune hepatitis, complicated by posttransplant lymphoproliferative disorder, now with increasing liver enzymes. TECHNIQUE: Magnetic resonance imaging of the abdomen was performed prior to and following the uneventful administration of intravenous Gadolinium contrast. The raw data was processed on the scanner by the technologist for 3 dimensional reconstructions of the intrahepatic ducts, extrahepatics ducts, and pancreatic duct. Protocol: Liver MRCP Contrast: Dotarem 10 mL COMPARISON: PET/CT from 10/12/2019, CT chest abdomen and pelvis from 12/28/2018, and MR abdomen from 12/05/2018. FINDINGS: Liver: Postsurgical changes of orthotopic liver transplant of the left hepatic lobe are seen. There is no steatosis or iron deposition within the transplant liver. The hepatic surface is smooth. - Bile ducts: No intrahepatic biliary ductal dilation is seen. - Focal liver lesions: There is a mildly T1 hypointense and T2 hyperintense lesion within the hepatic segment IVb with peripheral predominant arterial phase hyperenhancement and corresponding peripheral diffusion restriction. There is progressive central enhancement on the subsequent postcontrast sequences. The lesion measures 2.7 x 1.7 cm and there is surrounding hepatic parenchymal hyperemia and transient hepatic intensity difference. Internal necrotic change is also present within this lesion. Scattered foci of arterial hyperenhancement within the hepatic segment 4B become isointense to the liver on the subsequent postcontrast sequences, likely representing transient hepatic intensity difference. - Vasculature: The abdominal aorta is normal in course and caliber. The portal an hepatic veins are patent. Gallbladder: Surgically absent. Pancreas: Normal. Spleen: Surgically absent. Adrenals: Normal. Kidneys: Normal. No hydronephrosis. Other Findings: There is no ascites. The marrow signal intensity is normal. The visualized small and large bowel loops are nondilated. Extensive retroperitoneal, gastrohepatic and mesenteric lymphadenopathy within the abdomen and posterior mediastinal lymphadenopathy in the visualized chest is not significantly changed when correlated with the PET/CT from 10/12/2019. IMPRESSION: 1. New 2.7 cm peripherally hyperenhancing lesion with progressive central enhancement along with internal areas of necrosis, located within the transplant liver segment IVb. Although this lesion could represent hepatic involvement of patient's known post transplant lymphoproliferative disorder, the appearance is somewhat atypical for lymphoma. Primary hepatic malignancy such as cholangiocarcinoma can be considered. The pattern of diffusion restriction would make an abscess less likely. Recommend biopsy. This lesion is amenable to ultrasound-guided tissue sampling. 2. No evidence of biliary obstruction. 3. 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 Electronically signed by: Lamar Toscano M.D. Theodore Gresham MD IMG MRI PROCEDURES Final R esult documented in this encounter Visit Diagnoses Diagnosis History of liver transplant (CMS/HCC) (HCC)- Primary Liver replaced by transplant Elevated liver enzymes Other nonspecific abnormal serum enzyme levels History of liver transplant (CMS/HCC) (HCC) Liver replaced by transplant Elevated liver enzymes Other nonspecific abnormal serum enzyme levels documented in this encounter Care Teams Bead Filler Relationship Specialty Start Date End Date Guero Colunga DO PCP - General Internal Medicine 03/22/19 04/18/23 Amber Montesinos RN Letterpress Printing Machinist Transplant 11/17/19 Jil Duncan MD Consulting Physician Infectious Diseases 01/10/20 documented as of this encounter
--- OUTSIDE RECORDS SUMMARY | 2024-10-28 06:23 | XMS_ITS | Encounter Summary ---
Author Organization [facility] Healthcare Address [address] [place] [address] Care Team Providers Care Gemologist Name Role Phone CristineGuero Primary Care Provider [phone] Amber Montesinos RN Unavailable [phone] Jil Duncan MD Unavailable [phone] Encounter Details Date Type Department Care Team (Late st Contact Info) Description 01/26/2020 Telephone [facility] Transplant Liver [address] [facility] [address] [phone] [place] [address] Eli Brink Social History Tobacco Use Types Packs/Day Years Used Date Smoking Tobacco: Never Smokeless Tobacco: Never Alcohol Use Standard Drinks/Week Comments Yes 0 (1 standard drink = 0.6 oz pur e alcohol) occassional Sex and Gender Information Value Date Recorded Sex Assigned at Not on file 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 No / Unsure 01/17/2020 7:12 AM CDT documented as of this encounter Miscellaneous Notes * Telephone Encounter - Eli Brink - 01/26/2020 12:11 PM CDT Pt mother left a vm at 11:34 am requesting a return call [phone] documented in this encounter Plan of Treatment Scheduled Procedures Name Priority Associated Diagnoses Date/Ti me COLONOSCOPY Encounter for screening for colorectal cancer in high risk patient Family history of rectal cancer documented as of this encounter Visit Diagnoses Not on filedocumented in this encounter Care Teams Gemologist Relationship Specialty Start Date End Date Guero Colunga DO PCP - General Internal Medicine 03/22/19 04/18/23 Amber Montesinos, RN Pickle Maker Transplant 11/17/19 Jil Duncan MD Consulting Physician Infectious Diseases 01/10/20 documented as of this encounter
--- OUTSIDE RECORDS SUMMARY | 2024-10-28 06:23 | XMS_ITS | Encounter Summary ---
Author Organization [facility] Address [address] [place] [address] Phone Care Team Providers Care Local Az Truck Driver Name Role Phone Guero Colunga DO Primary Care Provider [phone] Amber Montesinos RN Unavailable [phone] Encounter Details Date Type Department Care Team (Late st Contact Info) Description 12/25/2019 Orders Only [facility] Infectious Diseases [address] [place] [address] [address] [place] [address] Jil Duncan MD [address] [facility] [address] [place] [address] Fever, unspecified fever cause (Primary Dx) Social History Tobacco Use Types Packs/Day Years Used Date Smoking Tobacco: Never Smokeless Tobacco: Never Alcohol Use Standard Drinks/Week Comments Yes 0 (1 standard drink = 0.6 oz pur e alcohol) occassional Sex and Gender Information Value Date Recorded Sex Assigned at Not on file 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 Gender Identity Not on file Sexual Orientation Straight 08/22/2021 9: 23 AM CDT documented as of this encounter Miscellaneous Notes * Addendum Note - Octaviano Harris CMA - 12/25/2019 10:37 AM CASH CHECKER Addended by: OCTAVIANO HARRIS on: 12/25/2019 10:39 AM Modules accepted: Orders CHECKER * Addendum Note - Boris Sousa - 12/25/2019 10:37 AM CSTAddended by: BORIS SOUSA on: 12/25/2019 10:47 AM Modules accepted: Orders CHECKER documented in this encounter Plan of Treatment Scheduled Procedures Name Priority Associated Diagnoses Date/Ti me COLONOSCOPY Encounter for screening for colorectal cancer in high risk patient Family history of rectal cancer documented as of this encounter Results * Influenza A/B and RSV PCR Nasopharyngeal (12/25/2019 10:39 AM CASH CHECKER) Influenza A RNA Not Detected Not [facility] Influenza B RNA Not Detected Not Detected [facility] RSV RNA Not Detected Not Detected [facility] Comment: Interpretive Data Testing performed by [facility] ([phone]). This test is performed using the SIVI Xpert Flu/RSV Assay. ??This is a multiplex, real-time reverse transcriptase PCR assay that detects influenza A, influenza B,and respiratory syncytial virus RNA. ??This assay has been cleared by the [place] Food and Drug Administration, and its performance characteristics have been verified by the [facility]. Interpretive Data last revised 2019 Nasopharyngeal 12/25/2019 10 :39 AM CASH CHECKER 12/25/2019 8:11 PM CASH CHECKER us Ige Sonido Duncan MD LAB MICROBIOLOGY - GENERAL ORDERABLES Final Result [facility] Department [place] [address] documented in this encounter Visit Diagnoses Diagnosis Fever, unspecified fever cause- Primary documented in this encounter Additional Health Concerns Infection Onset Date Last Indicated Resolved Time Rhino/Enterovirus 12/21/2019 12/21/2019 12/28/2019 3:05 AM CASH CHECKER documented as of this encounter Care Teams Local Az Truck Driver Relationship Specialty Start Date End Date Guero Colunga DO PCP - General Internal Medicine 03/22/19 04/18/23 Amber Montesinos, SHAILESH Program Manager Transportation Transplant 11/17/19 documented as of this encounter
--- OUTSIDE RECORDS SUMMARY | 2024-10-28 06:23 | XMS_ITS | Encounter Summary ---
Author Organization [facility] Healthcare Address [address] [place] [address] Care Team Providers Care Therapist Rrt Name Role Phone CristineGuero Primary Care Provider [phone] Amber Montesinos RN Unavailable [phone] Jil Duncan MD Unavailable [phone] Encounter Details Date Type Department Care Team (Late st Contact Info) Description 01/18/2020 Orders Only [facility] Health Information Management [address] [place] [address] Scanning, Provider Social History Tobacco Use Types Packs/Day Years Used Date Smoking Tobacco: Never Smokeless Tobacco: Never Alcohol Use Standard Drinks/Week Comments Yes 0 (1 standard drink = 0.6 oz pur e alcohol) occassional Sex and Gender Information Value Date Recorded Sex Assigned at Not on file 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
--- OUTSIDE RECORDS SUMMARY | 2024-10-28 06:23 | XMS_ITS | Encounter Summary ---
Author Organization [facility] Healthcare Address [address] [place] [address] Care Team Providers Care Factory Manager Name Role Phone Guero Colunga Primary Care Provider [phone] Amber Montesinos RN Unavailable [phone] Jil Duncan MD Unavailable [phone] Encounter Details Date Type Department Care Team (Late st Contact Info) Description 01/29/2020 Telephone [facility] Transplant Liver [address] [facility] [address] [phone] [place] [address] Eli Brink Social History Tobacco Use Types Packs/Day Years Used Date Smoking Tobacco: Never Smokeless Tobacco: Never Alcohol Use Standard Drinks/Week Comments Yes 0 (1 standard drink = 0.6 oz pur e alcohol) occassional Sex and Gender Information Value Date Recorded Sex Assigned at Not on file Legal Sex Male 6:28 AM ALTERATION MANAGER Gender Identity Not on file Sexual Orientation Straight 08/22/2021 9: 23 AM CDT COVID-19 Exposure Response Date Recorded In the last month, have you been in contact with someone who was confirmed or suspected to have Coronavirus / COVID-19? No / Unsure 01/17/2020 7:12 AM CDT documented as of this encounter Miscellaneous Notes * Telephone Encounter - Amber Vargas RN - 01/29/2020 10:29 AM CDT Placed call and spoke to pharmacist at [facility]. They already had refill from order placed in November, no refills needed at this time. 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 * Telephone Encounter - Eli Brink - 01/29/2020 8:24 AM CDT Script faxed from [place], [place] fax [phone] for Valganciclovir 450 mg 1 tab documented in this encounter Plan of Treatment Scheduled Procedures Name Priority Associated Diagnoses Date/Ti me COLONOSCOPY Encounter for screening for colorectal cancer in high risk patient Family history of rectal cancer documented as of this encounter Visit Diagnoses Not on filedocumented in this encounter Care Teams Factory Manager Relationship Specialty Start Date End Date Guero Colunga DO PCP - General Internal Medicine 03/22/19 04/18/23 Amber Montesinos, SHAILESH Refinery Operator Gas Plant Transplant 11/17/19 Jil Duncan MD Consulting Physician Infectious Diseases 01/10/20 documented as of this encounter
--- OUTSIDE RECORDS SUMMARY | 2024-10-28 06:23 | XMS_ITS | Encounter Summary ---
Author Organization [facility] Care Team Providers Care Phlebotomy Tech Name Role Phone Guero Colunga DO Primary Care Provider [phone] Amber Montesinos RN Unavailable [phone] Jil Duncan MD Unavailable [phone] Encounter Details Date Type Department Care Team (Latest Contact Info) Description 01/17/2020 Travel Social History Tobacco Use Types Packs/Day Years Used Date Smoking Tobacco: Never Smokeless Tobacco: Never Alcohol Use Standard Drinks/Week Comments Yes 0 (1 standard drink = 0.6 oz pur e alcohol) occassional Sex and Gender Information Value Date Recorded Sex Assigned at Not on file Legal Sex Male 6:28 AM CATH LAB Gender Identity Not on file Sexual Orientation [...] on filedocumented in this encounter Care Teams Phlebotomy Tech Relationship Specialty Start Date End Date Guero Colunga DO PCP - General Internal Medicine 03/22/19 04/18/23 Amber Montesinos, SHAILESH Cane Packer Transplant 11/17/19 Jil Duncan MD Consulting Physician Infectious Diseases 01/10/20 documented as of this encounter
--- OUTSIDE RECORDS SUMMARY | 2024-10-28 06:23 | XMS_ITS | Encounter Summary ---
Author Organization [facility] Healthcare Address [address] [place] [address] Care Team Providers Care Architecture Faculty Member Name Role Phone Guero Colunga DO Primary Care Provider [phone] Amber Montesinos RN Unavailable [phone] Encounter Details Date Type Department Care Team (Late st Contact Info) Description 12/28/2019 Telephone [facility] Transplant Liver [address] [facility] [address] [phone] [place] [address] Amber Montesinos, SHAILESH Social History Tobacco Use Types Packs/Day Years Used Date Smoking Tobacco: Never Smokeless Tobacco: Never Alcohol Use Standard Drinks/Week Comments Yes 0 (1 standard drink = 0.6 oz pur e alcohol) occassional Sex and Gender Information Value Date Recorded Sex Assigned at Not on file Legal Sex Male 6:28 AM GAS OPERATIONS SUPERINTENDENT Gender Identity Not on file Sexual Orientation Straight 08/22/2021 9: 23 AM CDT documented as of this encounter Miscellaneous Notes * Telephone Encounter - Amber Vargas RN - 12/28/2019 2:52 PM CST Images from the original note were not included. Recived denial from [facility] about patient's valcyte. Called [facility] claim service representative to appeal process. Let them know that pt is on a treatment dose of valcyte for active infection. Per claim service representative, new prior authorization required for request. Rep stating that a question about a formulary exception on [employer]'s end of the application needs to be changed from no to yes. Rep provided new santana of: [id number]. New request sent to cover my meds. Per rep, they will be in contact with coordinator. Emailed social work supervisor to update her- she is going to facilitate Network application. OPERATIONS SUPERINTENDENT documented in this encounter Plan of Treatment Scheduled Procedures Name Priority Associated Diagnoses Date/Ti me COLONOSCOPY Encounter for screening for colorectal cancer in high risk patient Family history of rectal cancer documented as of this encounter Visit Diagnoses Not on filedocumented in this encounter Additional Health Concerns Infection Onset Date Last Indicated Resolved Time Rhino/Enterovirus 12/21/2019 12/21/2019 12/28/2019 3:05 AM GAS OPERATIONS SUPERINTENDENT documented as of this encounter Care Teams Architecture Faculty Member Relationship Specialty Start Date End Date Guero Colunga DO PCP - General Internal Medicine 03/22/19 04/18/23 Amber Montesinos, RN Glassware Defect Repairer Transplant 11/17/19 documented as of this encounter
--- OUTSIDE RECORDS SUMMARY | 2024-10-28 06:23 | XMS_ITS | Encounter Summary ---
Author Organization [facility] Healthcare Address [address] [place] [address] Care Team Providers Care Automated Manufacturing Instructor Name Role Phone Guero Colunga Primary Care Provider [phone] Amber Montesinos RN Unavailable [phone] Jil Duncan MD Unavailable [phone] Encounter Details Date Type Department Care Team (Late st Contact Info) Description 02/01/2020 Telephone [facility] Radiology [address] [place] [address] Neida Slaughter, SHAILESH Social History Tobacco Use Types Packs/Day Years Used Date Smoking Tobacco: Never Smokeless Tobacco: Never Alcohol Use Standard Drinks/Week Comments Yes 0 (1 standard drink = 0.6 oz pur e alcohol) occassional Sex and Gender Information Value Date Recorded Sex Assigned at Not on file Legal Sex Male 6:28 AM AREA DEVELOPMENT MANAGER Gender Identity Not on file Sexual Orientation Straight 08/22/2021 9: 23 AM CDT COVID-19 Exposure Response Date Recorded In the last month, have you been in contact with someone who was confirmed or suspected to have Coronavirus / COVID-19? No / Unsure 01/17/2020 7:12 AM CDT documented as of this encounter Miscellaneous Notes * Telephone Encounter - Neida Slaughter RN - 02/01/2020 12:[address] Reyes, approved biopsy procedure - scheduled for tomorrow 02/02/20. documented in this encounter Plan of Treatment Scheduled Procedures Name Priority Associated Diagnoses Date/Ti me COLONOSCOPY Encounter for screening for colorectal cancer in high risk patient Family history of rectal cancer documented as of this encounter Visit Diagnoses Not on filedocumented in this encounter Care Teams Automated Manufacturing Instructor Relationship Specialty Start Date End Date Guero Colunga DO PCP - General Internal Medicine 03/22/19 04/18/23 Amber Montesinos, SHAILESH Operations Label Clerk Transplant 11/17/19 Jil Duncan MD Consulting Physician Infectious Diseases 01/10/20 documented as of this encounter
--- OUTSIDE RECORDS SUMMARY | 2024-10-28 06:23 | XMS_ITS | Encounter Summary ---
Author Organization [facility] Address [address] [place] [address] Phone Care Team Providers Care Dry House Tender Name Role Phone Guero Colunga DO Primary Care Provider [phone] Amber Montesinos RN Unavailable [phone] Jil Duncan MD Unavailable [phone] Encounter Details Date Type Department Care Team (Late st Contact Info) Description 02/06/2020 Telephone [facility] 7th [place] [address] [place] [address] Samreen Greene RN Social History Tobacco Use Types Packs/Day Years Used Date Smoking Tobacco: Never Smokeless Tobacco: Never Alcohol Use Standard Drinks/Week Comments Yes 0 (1 standard drink = 0.6 oz pur e alcohol) occassional Sex and Gender Information Value Date Recorded Sex Assigned at Not on file Legal Sex Male 6:28 AM KNITTED GOODS SHAPER Gender Identity Not on file Sexual Orientation Straight 08/22/2021 9: 23 AM CDT COVID-19 Exposure Response Date Recorded In the last month, have you been in contact with someone who was confirmed or suspected to have Coronavirus / COVID-19? No / Unsure 01/17/2020 7:12 AM CDT documented as of this encounter Miscellaneous Notes * Telephone Encounter - Samreen Greene RN - 02/06/2020 3:11 PM CDT Left a message to see how Beka is feeling. Liver biopsy results currently pending. I left my number for them to reach me at their earliest convenience. documented in this encounter Plan of Treatment Scheduled Procedures Name Priority Associated Diagnoses Date/Ti me COLONOSCOPY Encounter for screening for colorectal cancer in high risk patient Family history of rectal cancer documented as of this encounter Visit Diagnoses Not on filedocumented in this encounter Care Teams Dry House Tender Relationship Specialty Start Date End Date Guero Colunga DO PCP - General Internal Medicine 03/22/19 04/18/23 Amber Montesinos, HSAILESH Washer And Capper Machine Operator Transplant 11/17/19 Jil Duncan MD Consulting Physician Infectious Diseases 01/10/20 documented as of this encounter
--- OUTSIDE RECORDS SUMMARY | 2024-10-28 06:23 | XMS_ITS | Encounter Summary ---
Author Organization [facility] Healthcare Address [address] [place] [address] Care Team Providers Care General Worker Name Role Phone Guero Colunga Primary Care Provider [phone] Amber Montesinos RN Unavailable [phone] Jil Duncan MD Unavailable [phone] Encounter Details Date Type Department Care Team (Late st Contact Info) Description 02/02/2020 Orders Only Radiology [address] [place] [address] Jez Flanagan MD [address] [place] [id number] Social History Tobacco Use Types Packs/Day Years Used Date Smoking Tobacco: Never Smokeless Tobacco: Never Alcohol Use Standard Drinks/Week Comments Yes 0 (1 standard drink = 0.6 oz pur e alcohol) occassional Sex and Gender Information Value Date Recorded Sex Assigned at Not on file Legal Sex Male 6:28 AM GIZZARD PULLER Gender Identity Not on file Sexual Orientation [...] filedocumented in this encounter Care Teams General Worker Relationship Specialty Start Date End Date Guero Colunga DO PCP - General Internal Medicine 03/22/19 04/18/23 Amber Montesinos RN Phlebotomy Director Transplant 11/17/19 Jil Duncan MD Consulting Physician Infectious Diseases 01/10/20 documented as of this encounter
--- OUTSIDE RECORDS SUMMARY | 2024-10-28 06:23 | XMS_ITS | Encounter Summary ---
Author Organization [facility] Healthcare Address [address] [place] [address] Care Team Providers Care Dentistry Teacher Name Role Phone CristineCarsonGuero Primary Care Provider [phone] Amber Montesinos RN Unavailable [phone] Encounter Details Date Type Department Care Team (Late st Contact Info) Description 12/25/2019 8:00 PM HYDROSTATIC TESTER Lab [address] [address] Fever, unspecified fever cause Social History Tobacco Use Types Packs/Day Years Used Date Smoking Tobacco: Never Smokeless Tobacco: Never Alcohol Use Standard Drinks/Week Comments Yes 0 (1 standard drink = 0.6 oz pur e alcohol) occassional Sex and Gender Information Value Date Recorded Sex Assigned at Not on file Legal Sex Male 6:28 AM HYDROSTATIC TESTER Gender Identity Not on file Sexual Orientation Straight 08/22/2021 9: 23 AM CDT documented as of this encounter Plan of Treatment Scheduled Procedures Name Priority Associated Diagnoses Date/Ti me COLONOSCOPY Encounter for screening for colorectal cancer in high risk patient Family history of rectal cancer documented as of this encounter Procedures Procedure Name Priority Date/Time Associated Diagnosis Comments INFLUENZA A/B AND RSV PCR Routine 12/25/2019 10:39 AM HYDROSTATIC TESTER Fever, unspecified fever cause documented in this encounter Results * Influenza A/B and RSV PCR Nasopharyngeal (12/25/2019 10:39 AM HYDROSTATIC TESTER) Influenza A RNA Not Detected Not Detected [facility] Influenza B RNA Not Detected Not Detected [facility] RSV RNA Not Detected Not Detected [facility] Comment: Interpretive Data Testing performed by [facility] ([phone]). This test is performed using the Workspot Xpert Flu/RSV Assay. ??This is a multiplex, real-time reverse transcriptase PCR assay that detects influenza A, influenza B,and respiratory syncytial virus RNA. ??This assay has been cleared by the [place] Food and Drug Administration, and its performance characteristics have been verified by the [facility]. Interpretive Data last revised 2019 Nasopharyngeal 12/25/2019 10 :39 AM HYDROSTATIC TESTER 12/25/2019 8:11 PM HYDROSTATIC TESTER us [facility] Soniod Duncan MD LAB MICROBIOLOGY - GENERAL ORDERABLES Final Result [facility] Department [place] [address] documented in this encounter Visit Diagnoses Diagnosis Fever, unspecified fever cause documented in this encounter Additional Health Concerns Infection Onset Date Last Indicated Resolved Time Rhino/Enterovirus 12/21/2019 12/21/2019 12/28/2019 3:05 AM HYDROSTATIC TESTER documented as of this encounter Care Teams Dentistry Teacher Relationship Specialty Start Date End Date Guero Colunga DO PCP - General Internal Medicine 03/22/19 04/18/23 Amber Montesinos, SHAILESH Pipe Tester Transplant 11/17/19 documented as of this encounter
--- OUTSIDE RECORDS SUMMARY | 2024-10-28 06:23 | XMS_ITS | Encounter Summary ---
Author Organization [facility] Address [address] [place] [address] Phone Care Team Providers Care Senior Mechanical Development Engineer Name Role Phone Guero Colunga DO Primary Care Provider [phone] Amber Montesinos RN Unavailable [phone] Jil Duncan MD Unavailable [phone] Encounter Details Date Type Department Care Team (Late st Contact Info) Description 01/12/2020 Orders Only [facility] Infectious Diseases [address] [place] [address] [address] [place] [address] Jil Duncan MD [address] [facility] [place] [address] [place] [address] Cytomegalovirus infection, 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 Dx) Social History Tobacco Use Types Packs/Day Years Used Date Smoking Tobacco: Never Smokeless Tobacco: Never Alcohol Use Standard Drinks/Week Comments Yes 0 (1 standard drink = 0.6 oz pur e alcohol) occassional Sex and Gender Information Value Date Recorded Sex Assigned at Not on file Legal Sex Male 6:28 AM ENVIRONMENTAL COMPLIANCE INSPECTOR Gender Identity Not on file Sexual [...] Primary documented in this encounter Care Teams Senior Mechanical Development Engineer Relationship Specialty Start Date End Date Guero Colunga DO PCP - General Internal Medicine 03/22/19 04/18/23 Amber Montesinos RN Car And Yard Supervisor Transplant 11/17/19 Jil Duncan MD Consulting Physician Infectious Diseases 01/10/20 documented as of this encounter
--- OUTSIDE RECORDS SUMMARY | 2024-10-28 06:23 | XMS_ITS | Encounter Summary ---
Author Organization [facility] Healthcare Address [address] [place] [address] Care Team Providers Care Laminating Press Operator Name Role Phone Guero Colunga Primary Care Provider [phone] Amber Montesinos RN Unavailable [phone] Jil Duncan MD Unavailable [phone] Encounter Details Date Type Department Care Team (Late st Contact Info) Description 01/17/2020 8:35 AM CDT Lab [facility] ([facility]) [address] [place] [address] Jil Duncan MD [address] [facility] [address] [place] [address] Cytomegalovirus infection, unspecified cytomegaloviral infection [...] file Legal Sex Male 6:28 AM ADULT EDUCATOR Gender Identity Not on file Sexual [...] Procedure Name Priority Date/Time Associated Diagnosis Comments HISTOPLASMA ANTIBODY Routine 01/17/2020 8:30 AM CDT HISTOPLASMA ANTIGEN Routine 01/17/2020 8:19 AM CDT Cytomegalovirus infection, unspecified cytomegaloviral infection type (CMS/HCC) CYTOMEGALOVIRUS (CMV) DNA, QUANT GEN LAB Routine 01/17/2020 8:19 AM CDT Cytomegalovirus infection, unspecified cytomegaloviral infection type (CMS/HCC) T-SPOT.TB Routine 01/17/2020 8:19 AM CDT Cytomegalovirus infection, unspecified cytomegaloviral infection type (CMS/HCC) CRYPTOCOCCAL ANTIGEN, SERUM Routine 01/17/2020 8:19 AM CDT Cytomegalovirus infection, unspecified cytomegaloviral infection type (CMS/HCC) documented in this encounter Results * Histoplasma Antibody Blood (01/17/2020 8:30 AM CDT) Histoplasma Ab, mycelial CF Negative Negative [facility] Histoplasma Ab, yeast CF Negative Negative [facility] Histoplasma Ab, Immunodiffusion Negative Negative [facility] Comment: A negative complement fixation and immunodiffusion (CF/ID) result does not exclude the diagnosis of histoplasmosis. ?? Repeat testing by CF/ID in 1-2 weeks if clinically indicated. Test Performed by: [address] [address] [place] Consultant: Jason Sandy M.D. Ph.D.; CLIA# [id number] Blood specimen (specimen) 01/17/2020 8:30 AM CDT 01/17/2020 9:41 AM CDT Jil Sonido Duncan MD LAB MICROBIOLOGY - GENERAL ORDERABLES Final Result Performing Organization Address [facility] Co de [place] [address] * Histoplasma Antigen Urine (01/17/2020 8:19 AM CDT) Histo Ag Ur result None Detected None Detected [facility] Histo Ag Ur interp Negative Negative [facility] Comment: Result Interpretation: Reference interval: None Detected Results reported as ng/mL in 0.4 - 19 ng/mL range Results above the limit of detection but below 0.4 ng/mL are reported as 'Positive, Below the Limit of Quantification' Results above 19 ng/mL are reported as 'Positive, Above the Limit of Quantification' Testing Performed by: [facility], [address] [place] [address] [place] [address]. This test was developed and its performance characteristics determined by [facility]. It has not been cleared or approved by the FDA; however, FDA clearance or approval is not currently required for clinical use. The results are not intended to be used as the sole means for clinical diagnosis or patient management decisions. Urine 01/17/2020 8:19 AM CDT 01/17/2020 10:12 AM CDT Jil Duncan MD LAB MICROBIOLOGY - GENERAL ORDERABLES Final Result Performing Organization Address [facility] Co de Phone Number [facility] Department [place] [address] * Cryptococcal Antigen, Serum Blood (01/17/2020 8:19 AM CDT) Cryptococcus ag, Serum Negative Negative [facility] Comment: The cryptococcal antigen test was performed [...] Current interpretive data last revised 2018. Blood specimen (specimen) 01/17/2020 8:19 AM CDT 01/17/2020 10:17 AM CDT us [facility] Sonido Duncan MD LAB MICROBIOLOGY - GENERAL ORDERABLES Final Result [facility] Department [place] [address] * T-SPOT.TB (01/17/2020 8:19 AM CDT) Pathologist [facility] T-SPOT.TB Negative Negative [facility] Comment: Limitations from the T-SPOT.TB Package Insert p.15 Results from T-SPOT.TB testing must be used in conjunction with each individual's epidemiological history, current medical status and results of other diagnostic evaluations.The performance of T-SPOT.TB has not been adequately evaluated with specimens from individuals younger than 17 years, in women, and in patients with hemophilia. A false positive result was obtained for T-SPOT.TB when tested in subjects with M. xenopi, M. kansasii and M. gordonae. While ESAT-6 and CFP10 antigens are absent from BCG strains of M. bovis and from most environmental mycobacteria, it is possible that a positive T-SPOT.TB result may be due to infection with M. kansasii, M. szulgai, M. gordonae or M. marinum. Alternative tests would be required if these infections are suspected. A negative test result does not exclude the possibility of exposure to, or infection with M. tuberculosis. Patients with recent exposure to TB infected individuals exhibiting a negative T-SPOT.TB result should be considered for retesting within 6 weeks or if other relevant clinical symptoms indicate possible infection. A positive test result does not rule in active TB disease; other tests should be performed to confirm the diagnosis of active TB disease such as sputum smear and culture, PCR, and chest radiography. T-SPOT.TB has not been evaluated in subjects who have received >1 month of anti-TB therapy. Refrigerated and frozen samples are not recommended for use with T-SPOT.TB test. T-Spot testing performed by [facility], [address] [place] [address]. [id number] A negative test result does not exclude the possibility of exposure to or infection with Mycobacterium tuberculosis (M. tuberculosis). ??Patients with recent exposure to TB infected individuals exhibiting a negative T-SPOT.TB result should be considered for retesting within 6 weeks or if other relevant clinical symptoms indicate. ??Results from T-SPOT.TB testing must be used in conjunction with each individual's epidemiological history, current medical status, and results of other diagnostic evaluations. ??The T-SPOT.TB test is qualitative and results are reported as positive, borderline or negative, given that the test controls perform as expected. In line with the Centers for Disease Control and Prevention's 2010 recommendation to report quantitative measurements alongside the qualitative result, the laboratory provides spot counts for informational purposes only. ??The T-SPOT.TB test should not be interpreted as a quantitative test. T-SPOT.TB Panel A Spot Count 0 [facility] T-SPOT.TB Panel B Spot Count 0 [facility] T-SPOT.TB Negative Control Passed [facility] T-SPOT.TB Positive Control Passed [facility] Blood specimen (specimen) 01/17/2020 8:19 AM CDT 01/17/2020 9:38 AM CDT us [facility] Sonido Duncan MD LAB MICROBIOLOGY - GENERAL ORDERABLES Final Result [facility] Department [place] [address] * (ABNORMAL) Cytomegalovirus (CMV) DNA PCR, quantitative Blood (01/17/2020 8:19 AM CDT) [facility] CMV DNA Detected( A) [facility] Comment: Interpretive Data: The quantifiable range of this assay is 137 IUnits/mL to 9,100,000 IUnits/mL (2.14 log IUnits/mL to 6.96 log IUnits/mL). Testing was performed by the [employer] AmpliPrep/NIA TaqMan CMV Test (20:20 [employer] Testing performed at [facility] Current interpretive data was last revised on 17. CMV DNA IU/mL 258 IUnits/mL [facility] CMV DNA log IU/mL 2.41 log IUnits/mL [facility] Blood specimen (specimen) 01/17/2020 8:19 AM CDT 01/17/2020 10:39 PM CDT Jil Duncan MD LAB MICROBIOLOGY - GENERAL ORDERABLES Final Result [facility] Department [place] [address] documented in this encounter Visit Diagnoses Diagnosis Cytomegalovirus infection, unspecified cytomegaloviral infection type (HCC) documented in this encounter Care Teams Laminating Press Operator Relationship Specialty Start Date End Date Guero Colunga DO PCP - General Internal Medicine 03/22/19 04/18/23 Amber Montesinos, SHAILESH Chef Manager Transplant 11/17/19 Jil Duncan MD Consulting Physician Infectious Diseases 01/10/20 documented as of this encounter
--- OUTSIDE RECORDS SUMMARY | 2024-10-28 06:23 | XMS_ITS | Encounter Summary ---
Author Organization [facility] Healthcare Address [address] [place] [address] Care Team Providers Care Quality Assurance Specialist Name Role Phone Guero Colunga Primary Care Provider [phone] Amber Montesinos RN Unavailable [phone] Jil Duncan MD Unavailable [phone] Encounter Details Date Type Department Care Team (Late st Contact Info) Description 01/12/2020 Telephone [facility] Transplant Liver [address] [facility] [phone] [place] [address] Amber Montesinos, SHAILESH Social History Tobacco Use Types Packs/Day Years Used Date Smoking Tobacco: Never Smokeless Tobacco: Never Alcohol Use Standard Drinks/Week Comments Yes 0 (1 standard drink = 0.6 oz pur e alcohol) occassional Sex and Gender Information Value Date Recorded Sex Assigned at Not on file 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 No / Unsure 01/17/2020 7:12 AM CDT documented as of this encounter Miscellaneous Notes * Telephone Encounter - Rafal Brown - 01/24/2020 2:45 PM CDT CPT 41635 has been approved. 01/24/2020-03/09/2020 Auth# [id number] * Telephone Encounter - Amber Vargas RN - 01/12/2020 9:36 AM CDT Called to schedule. No available appointments until January 30 at any [facility] locations. Pt having to bescheduled at [facility]. Reviewed with Dr. Lemus. Emailed management. Are there any changes to insurance? If there is a change, please indicate the new insurance details below. If it is unchanged to what is already in [facility], simply warren each with N/A Primary Insurance: Patient ID#: Group#: Insurance Phone#: Radiology Test Request Details Need pre-cert for: MRI Abdomen MRCP W WO Contrast Ordering physician: Theodore Gresham CPT Code: 59200 CPT Code description: MRI Abdomen MRCP W WO Contrast ICD-10 Code: Z94.4; R74.8 ICD-10 Code description: History of liver transplant; Elevated liver enzymes Patient is having test due to: s/p liver transplant with elevated liver enzymes Complications patient is having: s/p liver transplant with elevated liver enzymes Testing is to rule out the following: s/p liver transplant with elevated liver enzymes Facility/Location test will be done: [facility] Date test will be done: January 30 8:00am documented in this encounter Plan of Treatment Scheduled Procedures Name Priority Associated Diagnoses Date/Ti ak COLONOSCOPY Encounter for screening for colorectal cancer in high risk patient Family history of rectal cancer documented as of this encounter Visit Diagnoses Not on filedocumented in this encounter Care Teams Quality Assurance Specialist Relationship Specialty Start Date End Date Guero Colunga DO PCP - General Internal Medicine 03/22/19 04/18/23 Amber Montesinos RN Machine Assembler Supervisor Transplant 11/17/19 Jil Duncan MD Consulting Physician Infectious Diseases 01/10/20 documented as of this encounter
--- OUTSIDE RECORDS SUMMARY | 2024-10-28 06:23 | XMS_ITS | Encounter Summary ---
Author Organization [facility] Healthcare Address [address] [place] [address] Care Team Providers Care Well Flow Operator Name Role Phone Guero Colunga Primary Care Provider [phone] Amber Montesinos RN Unavailable [phone] Jil Duncan MD Unavailable [phone] Encounter Details Date Type Department Care Team (Late st Contact Info) Description 02/01/2020 Telephone [facility] Radiology [address] [place] [address] Neida Slaughter, SHAILESH Social History Tobacco Use Types Packs/Day Years Used Date Smoking Tobacco: Never Smokeless Tobacco: Never Alcohol Use Standard Drinks/Week Comments Yes 0 (1 standard drink = 0.6 oz pur e alcohol) occassional Sex and Gender Information Value Date Recorded Sex Assigned at Not on file 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 No / Unsure 01/17/2020 7:12 AM CDT documented as of this encounter Miscellaneous Notes * Telephone Encounter - Neida Slaughter RN - 02/01/2020 8:59 AM CDT Received call from ERIBERTO Ramon - Dr. Gresham's office for liver biopsy jyotsna, post transplant 11+ year for abscess vs lesion pathology only. All information sent to Dr. Reyes for possible bx 02/02/20. documented in this encounter Plan of Treatment Scheduled Procedures Name Priority Associated Diagnoses Date/Ti me COLONOSCOPY Encounter for screening for colorectal cancer in high risk patient Family history of rectal cancer documented as of this encounter Visit Diagnoses Not on filedocumented in this encounter Care Teams Well Flow Operator Relationship Specialty Start Date End Date Guero Colunga DO PCP - General Internal Medicine 03/22/19 04/18/23 Amber Montesinos, RN Burn Center Nurse Transplant 11/17/19 Jil Duncan MD Consulting Physician Infectious Diseases 01/10/20 documented as of this encounter
--- OUTSIDE RECORDS SUMMARY | 2024-10-28 06:23 | XMS_ITS | Encounter Summary ---
Author Organization [facility] Healthcare Address [address] [place] [address] Care Team Providers Care Summer Analyst Name Role Phone Guero Colunga DO Primary Care Provider Amber Montesinos RN Unavailable [phone] Jil Duncan MD Unavailable [phone] Encounter Details Date Type Department Care Team (Late st Contact Info) Description 01/12/2020 Telephone [facility] Transplant Liver [address] [facility][1] [address] [id number] [place], [place] [id number] Amber Montesinos RN Social History Tobacco Use Types Packs/Day Years Used Date Smoking Tobacco: Never Smokeless Tobacco: Never Alcohol Use Standard Drinks/Week Comments Yes 0 (1 standard drink = 0.6 oz pur e alcohol) occassional Sex and Gender Information Value Date Recorded Sex Assigned at Not on file Legal 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 Pt is scheduled for MRCP at [facility] on January 30, at 8:00am. Pt is to arrive at 7:30am and be NPO after midnight. Mom verbalized understanding of instructions. documented in this encounter Plan of Treatment Scheduled Procedures Name Priority Associated Diagnoses Date/Ti me COLONOSCOPY Encounter for screening for colorectal cancer in high risk patient Family history of rectal cancer documented as of this encounter Visit Diagnoses Not on filedocumented in this encounter Care Teams Summer Analyst Relationship Specialty Start Date End Date Guero Colunga DO PCP - General Internal Medicine 03/22/19 04/18/23 Amber Montesinos RN Vault Maker Transplant 11/17/19 Jil Duncan MD Consulting Physician Infectious Diseases 01/10/20 documented as of this encounter
--- OUTSIDE RECORDS SUMMARY | 2024-10-28 06:23 | XMS_ITS | Encounter Summary ---
Author Organization [facility] Healthcare Address [address] [place] [address] Care Team Providers Care Monitoring Coordinator Name Role Phone Guero Colunga Primary Care Provider [phone] Amber Montesinos RN Unavailable [phone] Jil Duncan MD Unavailable [phone] Reason for Referral * Diagnostic Imaging (Routine) - Closed Specialty Diagnoses / Procedures Referred By Sascha rey Referred To Contact Radiology Diagnoses History of liver transplant (CMS/HCC) (HCC) Elevated liver enzymes Procedures MRI Abdomen MRCP W WO Contrast Theodore Gresham MD Phone: tel: fax: [address] [address] Referral ID Status Reason Start Date Expiration Date Visits Re quested Visits Authorized [id number] Closed 01/12/2020 07/23/2021 1 1 Reason for Visit * Diagnostic Imaging (Routine) - Closed Specialty Diagnoses / Procedures Referred By Sascha rey Referred To Contact Radiology Diagnoses History of liver transplant (CMS/HCC) (HCC) Elevated liver enzymes Procedures MRI Abdomen MRCP W WO Contrast Theodore Gresham MD Phone: tel: fax: 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 No / Unsure 01/17/2020 7:12 AM CDT documented as of this encounter Medications at Time of Discharge tacrolimus (PROGRAF) 0.5 mg capsuleIndication s:History of liver transplant (CMS/HCC) (HCC) Take 1 capsule (0.5 mg total) by mouth 2 (two) times a day 180 capsule 3 02/13/2019 03/20/2020 tacrolimus (PROGRAF) 0.5 mg capsule 10/13/2019 03/20/2020 valGANciclovir (VALCYTE) 450 mg tabletIndications :Other (complete free text reason below),CMV Viremia Take 2 tablets (900 mg total) by mouth 2 (two) times a day 120 tablet 12/28/2019 02/01/2020 documented as of this encounter Discharge Disposition Disposition Code Departure Means Destination Discharge to home or self care documented in this encounter Miscellaneous Notes * Result Encounter Note - Theodore Gresham MD - 2020 11:59 PM CDT 1. 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 MRI obtained because of an elevated alk phos 4. MR reviewed in imaging conference with major concern for lesion abscess 5. Discussed with his mom (and by extension the patient) this morning. No fevers, chills, or other common symptoms/signs of infection 6. Plan: A. Start Ciprofloxacin 500 mg bid and metronidazole 500 mg tid B. Refer to VIR for percutaneous biopsy (? Aspiration) of the lesion ZAHRA - perhaps as soon as tomorrow since there is concern for abscess C. Labs on day of procedure: CMP, CBC, CMV DNA PCR, PT/INR, PTT, CA 19-9; AFP D. Have him pack bag in case he needs to be admitted if they get pus with biopsy documented in this encounter Plan of Treatment Scheduled Procedures Name Priority Associated Diagnoses Date/Ti la COLONOSCOPY Encounter for screening for colorectal cancer in high risk patient Family history of rectal cancer documented as of this encounter Procedures Procedure Name Priority Date/Time Associated Diagnosis Comments MRI ABDOMEN MRCP W WO CONTRAST Schedule ZAHRA, Read Routine (Patient lives out of area) 2020 8:00 AM CDT History of liver transplant (CMS/HCC) Elevated liver enzymes documented in this encounter Results * MRI [...] Action Date Dose Rate Site gadoterate meglumine (DOTAREM) 0.5 mmol/mL injection 11.38 mL 11.38 mL (0.1 mmol/kg ? 56.9 kg), intravenous, Once in imaging, contrast, Starting on Wed01/31/20 at 0724, For 1 dose, Imaging Protocol Orders Given 2020 7:25 AM CDT 10 mL sodium chloride 0.9% flush 125 mL 125 mL, intravenous, Once in imaging, line care, Starting on Wed01/31/20 at 0724, For 1 dose Given 2020 7:25 AM CDT 125 mL documented in this encounter Care Teams Monitoring Coordinator Relationship Specialty Start Date End Date Guero Colunga DO PCP - General Internal Medicine 03/22/19 04/18/23 Amber Montesinos, RN Data Entry Coordinator Transplant 11/17/19 Jil Duncan MD Consulting Physician Infectious Diseases 01/10/20 documented as of this encounter
--- OUTSIDE RECORDS SUMMARY | 2024-10-28 06:23 | XMS_ITS | Encounter Summary ---
Author Organization [facility] Healthcare Address [address] [place] [address] Care Team Providers Care Talent Acquisition Consultant Name Role Phone Guero Colunga Primary Care Provider [phone] Amber Montesinos RN Unavailable [phone] Jil Duncan MD Unavailable [phone] Encounter Details Date Type Department Care Team (Late st Contact Info) Description 02/01/2020 Telephone 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 No / Unsure 01/17/2020 7:12 AM CDT documented as of this encounter Miscellaneous Notes * Telephone Encounter - Amber Vargas RN - 02/01/2020 12:33 PM CDT Returned call to patient's mother. Mother explaining to patient need for biopsy tomorrow. Per mother, patient very fearful. Mother stating pt has had bad experiences with biopsies in the past (motherdid not elaborate). Pt stating he wants to be put out for biopsy. Let mother know that I would contact VIR coordinator Neida to discuss. Sent Epic message to Neida about patient's concerns. * Telephone Encounter - Tarik Perry - 02/01/2020 11:50 AM CDT 11:17a patient has questions regarding liver biopsy. [phone] documented in this encounter Plan of Treatment Scheduled Procedures Name Priority Associated Diagnoses Date/Ti me COLONOSCOPY Encounter for screening for colorectal cancer in high risk patient Family history of rectal cancer documented as of this encounter Visit Diagnoses Not on filedocumented in this encounter Care Teams Talent Acquisition Consultant Relationship Specialty Start Date End Date Guero Colunga DO PCP - General Internal Medicine 03/22/19 04/18/23 Amber Montesinos, RN Purchasing Internship Transplant 11/17/19 Jil Duncan MD Consulting Physician Infectious Diseases 01/10/20 documented as of this encounter
--- OUTSIDE RECORDS SUMMARY | 2024-10-28 06:23 | XMS_ITS | Encounter Summary ---
Author Organization [facility] Address [address] [place] [address] Phone Care Team Providers Care Childrens Club Attendant Name Role Phone Guero Colunga DO Primary Care Provider [phone] Amber Montesinos RN Unavailable [phone] Jil Duncan MD Unavailable [phone] Encounter Details Date Type Department Care Team (Late st Contact Info) Description 01/11/2020 Orders Only [facility] Infectious Diseases [address] [place] [address] [address] [place] [address] Jil Duncan MD [address] [facility] [address] [place] [address] Cytomegalovirus infection, 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 Dx) Social History Tobacco Use Types Packs/Day Years Used Date Smoking Tobacco: Never Smokeless Tobacco: Never Alcohol Use Standard Drinks/Week Comments Yes 0 (1 standard drink = 0.6 oz pur e alcohol) occassional Sex and Gender Information Value Date Recorded Sex Assigned at Not on file 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 Testing was performed by the [employer] AmpliPrep/NIA TaqMan CMV Test ([employer] Testing performed at [facility] Current interpretive data was last revised on 17. CMV DNA IU/mL 258 IUnits/mL [facility] CMV DNA log IU/mL 2.41 log IUnits/mL [facility] Blood specimen (specimen) 01/17/2020 8:19 AM CDT 01/17/2020 10:39 PM CDT us Ige Sonido Duncan MD LAB MICROBIOLOGY - GENERAL ORDERABLES Final Result [facility] Department [place] [address] * T-SPOT.TB (01/17/2020 8:19 AM CDT) [facility] T-SPOT.TB Negative Negative [facility] Comment: Limitations from the T-SPOT.TB Package Insert [...] with T-SPOT.TB test. T-Spot testing performed by [employer], [address] [place] [address]. [id number] A negative test result does not exclude [...] test. T-SPOT.TB Panel A Spot Count 0 [facility] T-SPOT.TB Panel B Spot Count 0 [facility] T-SPOT.TB Negative Control Passed [facility] T-SPOT.TB Positive Control Passed [facility] Blood specimen (specimen) 01/17/2020 8:19 AM CDT 01/17/2020 9:38 AM CDT us Ige Sonido Duncan MD LAB MICROBIOLOGY - GENERAL ORDERABLES Final Result [facility] [place] [address] * Cryptococcal Antigen, Serum Blood (01/17/2020 8:19 AM CDT) [facility] Cryptococcus ag, Serum Negative Negative [facility] Comment: The cryptococcal antigen test was performed [...] AM CDT 01/17/2020 10:17 AM CDT us Ige Sonido Duncan MD LAB MICROBIOLOGY - GENERAL ORDERABLES Final Result Performing Organization Address [facility] Co de Phone Number [facility] [place] [address] * Histoplasma Antigen Urine (01/17/2020 8:19 AM CDT) [facility] Histo Ag Ur result None Detected None Detected [facility] Histo Ag Ur interp Negative Negative [facility] Comment: Result Interpretation: Reference interval: None Detected Results reported as ng/mL in 0.4 - 19 ng/mL range Results above the limit of detection but below 0.4 ng/mL are reported as 'Positive, Below the Limit of Quantification' Results above 19 ng/mL are reported as 'Positive, Above the Limit of Quantification' Testing Performed by: [employer], [address] [place] [address] [place] [address]. This test was developed and its performance characteristics determined by [employer]. It has not been cleared or approved by the FDA; however, FDA clearance or approval is not currently required for clinical use. The results are not intended to be used as the sole means for clinical diagnosis or patient management decisions. Urine 01/17/2020 8:19 AM CDT 01/17/2020 10:12 AM CDT Jil Duncan MD LAB MICROBIOLOGY - GENERAL ORDERABLES Final Result [facility] Department [place] [address] documented in this encounter Visit Diagnoses Diagnosis Cytomegalovirus infection, unspecified cytomegaloviral infection type (HCC)- Primary documented in this encounter Care Teams Childrens Club Attendant Relationship Specialty Start Date End Date Guero Colunga DO PCP - General Internal Medicine 03/22/19 04/18/23 Amber Montesinos RN Bilingual Customer Service Transplant 11/17/19 Jil Duncan MD Consulting Physician Infectious Diseases 01/10/20 documented as of this encounter
--- OUTSIDE RECORDS SUMMARY | 2024-10-28 06:23 | XMS_ITS | Encounter Summary ---
Author Organization [facility] Address [address] [place] [address] Phone Care Team Providers Care Rotogravure Press Operator Name Role Phone Guero Colunga DO Primary Care Provider [phone] Amber Montesinos RN Unavailable [phone] Encounter Details Date Type Department Care Team (Late st Contact Info) Description 01/06/2020 Orders Only [facility] Gastroenterology [address] [facility] Advanced Medicine 8th [place] [address] [place] [address] Theodore Gresham MD [address] [place] [address] Social History Tobacco Use Types Packs/Day Years Used Date Smoking Tobacco: Never Smokeless Tobacco: Never Alcohol Use Standard Drinks/Week Comments Yes 0 (1 standard drink = 0.6 oz pur e alcohol) occassional Sex and Gender Information Value Date Recorded Sex Assigned at Not on file 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 INVESTMENT BANKING Gender Identity Not on file Sexual Orientation Straight 08/22/2021 9: 23 AM CDT documented as of this encounter Miscellaneous Notes * Result Encounter Note - Lisandra Auguste, AIDEN - 12/19/2021 10:24 AM MANAGER INVESTMENT BANKING Thanks Amber! 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 He should be starting tomorrow. Home health will be coming for weekly labs on him, not sure if they will [facility]rough [facility] or an outside lab but let me know if there is anything additional you want me to add tot labs. Hopefully he will only need a few weeks of ganciclovir to get him undetectable. GER INVESTMENT BANKING documented in this encounter Plan of Treatment Scheduled Procedures Name Priority Associated Diagnoses Date/Ti me COLONOSCOPY Encounter for screening for colorectal cancer in high risk patient Family history of rectal cancer documented as of this encounter Procedures Procedure Name Priority Date/Time Associated Diagnosis Comments CYTOMEGALOVIRUS (CMV) GENOTYPE Routine 01/06/2020 8:59 AM MANAGER INVESTMENT BANKING TEST AUTHORIZATION Routine 01/06/2020 8: 59 AM MANAGER INVESTMENT BANKING COPY(IES) SENT TO: Routine 01/06/2020 8: 59 AM MANAGER INVESTMENT BANKING TEST AUTHORIZATION 2 Routine 01/06/2020 8:59 AM MANAGER INVESTMENT BANKING JOSE BORREGO VIRUS DNA, QN REAL TIME PCR Routine 01/06/2020 8:59 AM MANAGER INVESTMENT BANKING CMV DNA QN, PCR Routine 01/06/2020 8:59 AM MANAGER INVESTMENT BANKING TACROLIMUS LEVEL, TROUGH Routine 01/06/2020 8:59 AM MANAGER INVESTMENT BANKING CBC WITH AUTO DIFFERENTIAL Routine 01/06/2020 8:59 AM MANAGER INVESTMENT BANKING GAMMA GT Routine 01/06/2020 8:59 AM MANAGER INVESTMENT BANKING COMPREHENSIVE METABOLIC PANEL Routine 01/06/2020 8:59 AM MANAGER INVESTMENT BANKING documented in this encounter Results * Cytomegalovirus(CMV)Genotype (01/06/2020 8:59 AM MANAGER INVESTMENT BANKING) UL97 Mutation TNP [facility] [place] Comment: TEST NOT PERFORMED ?? We were unable to obtain a genotype from this sample. Reasons for failure to genotype commonly include: insufficient viral load, mutations in the genome at the priming sites, or presence of PCR inhibitors. Please correlate this result with a recent viral load for this patient, and resubmit a new sample if warranted. 01/06/2020 8:59 AM MANAGER INVESTMENT BANKING 01/06/2020 9:00 AM MANAGER INVESTMENT BANKING Narrative [facility] - 01/17/2020 3:22 PM CDT PT VARIFIED THIS IS THE CORRECT ORDER FOR TODAY FASTING:NO FASTING: NO Resulting Agency Comment Performing Organization Information: ?Site ID: [id number] ?Name: [facility] ?Address: [address] [place] [phone] ?Director: Richie Rodriguez MD Theodore Gresham MD LAB BLOOD ORDERABLES Final Result Performing Organization Address City/State/[facility] Co de Phone Number [facility] - [place], [place] * JOSE BORREGO VIRUS DNA, QN REAL TIME PCR (01/06/2020 8:59 AM MANAGER INVESTMENT BANKING) Source WHOLE BLOOD [facility] EBV DNA log copies/mL <200 [facility] EBV DNA log copies/mL <2.30 Log copies/mL [facility] Comment: REFERENCE RANGE: ?EBV DNA, QUANT ??<200 copies/mL ?EBV DNA, QUANT ??<2.30 Log copies/mL For additional information, please refer to [email or web address]/faq/CMVandEBVPCR (This link is being provided for informational/educational purposes only.) This test was developed and its analytical performance characteristics have been determined by [facility]. ??It has not been cleared or approved by FDA. This assay has been validated pursuant to the CLIA regulations and is used for clinical purposes. 01/06/2020 8:59 AM MANAGER INVESTMENT BANKING 01/06/2020 9:00 AM MANAGER INVESTMENT BANKING Narrative [facility] - 01/17/2020 3:22 PM CDT PT VARIFIED THIS IS THE CORRECT ORDER FOR TODAY FASTING:NO FASTING: NO Resulting Agency Comment Performing Organization Information: ?Site ID: [id number] ?Name: [facility] ?Address: [address] [place] [phone] ?Director: Richie Rodriguez MD Theodore Gresham MD LAB BLOOD ORDERABLES Final Result [facility] [place] * TEST AUTHORIZATION 2 (01/06/2020 8:59 AM MANAGER INVESTMENT BANKING) Test name CYTOMEGALOVIRUS (CMV) [facility] [place] Test code [id number] [facility] [place] Client contact LEXIE FULTONBORA [facility] [place] REPORT ALWAYS MESSAGE SIGNATURE [facility] [place] Comment: The laboratory testing on this patient was verbally requested or confirmed by the ordering physician or his or her authorized route service representative after contact with an employee of [facility]. Federal regulations require that we maintain on file written authorization for all laboratory testing. ??Accordingly we are asking that the ordering physician or his or her authorized route service representative sign a copy of this report and promptly return it to the director client services. Signature: Comment [facility] [place] Comment: Fax number: [phone] 01/06/2020 8:59 AM MANAGER INVESTMENT BANKING 01/06/2020 9:00 AM MANAGER INVESTMENT BANKING Narrative [facility] - 01/17/2020 3:22 PM CDT PT VARIFIED THIS IS THE CORRECT ORDER FOR TODAY FASTING:NO FASTING: NO Resulting Agency Comment Performing Organization Information: ?Site ID: [place] ?Name: [facility] ?Address: [address] [address] ?Director: Jason Buckner D.O., JAKOB us Theodore Gresham MD LAB BLOOD ORDERABLES Final Result Performing Organization Address [facility]/ZIP Co de Phone Number [facility] - [place], [place] * (ABNORMAL) CMV DNA QN, PCR (01/06/2020 8:59 AM MANAGER INVESTMENT BANKING) SOURCE WHOLE BLOOD [facility] [place] CMV DNA qn 1,452(H) IU/mL [facility] CMV DNA log IU/mL 3.16(H) Log IU/mL [facility] [place] Comment: REFERENCE RANGE: CMV DNA, QN PCR: <200 IU/mL CMV DNA, QN PCR: <2.30 Log IU/mL This test was developed and its analytical performance characteristics have been determined by [facility]. It has not been cleared or approved by the U.S. Food and Drug Administration. This assay has been validated pursuant to the CLIA regulations and is used for clinical purposes. 01/06/2020 8:59 AM MANAGER INVESTMENT BANKING 01/06/2020 9:00 AM MANAGER INVESTMENT BANKING Narrative [facility] - 01/17/2020 3:22 PM CDT PT VARIFIED THIS IS THE CORRECT ORDER FOR TODAY FASTING:NO FASTING: NO Resulting Agency Comment Performing Organization Information: ?Site ID: [id number] ?Name: [facility] ?Address: [address] [place] [phone] ?Director: Richie Rodriguez MD Theodore Gresham MD LAB MICROBIOLOGY - GENERAL ORDERABLES Final Result [facility] [place], [place] * Tacrolimus level trough (01/06/2020 8:59 AM MANAGER INVESTMENT BANKING) Tacrolimus, highly Sensitive, LC/MS/MS 5.2 mcg/L [facility] [place] Comment: No definitive therapeutic or toxic ranges have been established. Optimal blood drug levels are influenced by type of transplant, patient response, time post- transplant, co-administration of other drugs, and drug formulation. The following trough range is a suggested guideline: 5.0-20.0 mcg/L. This test was developed and its analytical performance characteristics have been determined by [facility]. It has not been cleared or approved by the FDA. This assay has been validated pursuant to the CLIA regulations and is used for clinical purposes. 01/06/2020 8:59 AM MANAGER INVESTMENT BANKING 01/06/2020 9:00 AM MANAGER INVESTMENT BANKING Narrative [facility] - 01/17/2020 3:22 PM CDT PT VARIFIED THIS IS THE CORRECT ORDER FOR TODAY FASTING:NO FASTING: NO Resulting Agency Comment Performing Organization Information: ?Site ID: [place] ?Name: [facility] ?Address: [address] [address] ?Director: Jason Buckner D.O., MPH us Theodore Gresham MD LAB BLOOD ORDERABLES Final Result [facility] [place] * TEST AUTHORIZATION (01/06/2020 8:59 AM MANAGER INVESTMENT BANKING) Test name JOSE BORREGO VIRUS DNA, [email or web address] TEST CODE: [id number] [email or web address] CLIENT CONTACT: [facility] Report Always Message Signature [email or web address] Comment: The laboratory testing on this patient was verbally requested or confirmed by the ordering physician or his or her authorized route service representative after contact with an employee of [facility]. Federal regulations require that we maintain on file written authorization for all laboratory testing. ??Accordingly we are asking that the ordering physician or his or her authorized route service representative sign a copy of this report and promptly return it to the director client services. Signature: Comment [facility] [place] Comment: Fax number: [phone] 01/06/2020 8:59 AM MANAGER INVESTMENT BANKING 01/06/2020 9:00 AM MANAGER INVESTMENT BANKING Narrative [facility] - 01/17/2020 3:22 PM CDT PT VARIFIED THIS IS THE CORRECT ORDER FOR TODAY FASTING:NO FASTING: NO Resulting Agency Comment Performing Organization Information: ?Site ID: [place] ?Name: [facility] ?Address: [address] [address] ?Director: Jason Buckner D.O., MPH Theodore Gresham MD LAB BLOOD ORDERABLES Final Result [facility] [place] * (ABNORMAL) Comprehensive metabolic panel (01/06/2020 8:59 AM MANAGER INVESTMENT BANKING) Glucose 76 65 - 139 mg/dL [facility] [place] Comment: ? Non-fasting reference interval BUN 10 7 - 25 mg/dL [facility] [place] Creatinine 0.72 0.60 - 1.35 mg/dL [facility] [place] eGFR NON-AFR. BAHAMIAN 129 > OR = 60 mL/min/1. 73m2 [facility] [place] EGFR 149 > OR = 60 mL/min/1. 73m2 [facility] [place] BUN/creat ratio NOT APPLICABLE 6 - 22 (calc) [facility] [place] Sodium 143 135 - 146 mmol/L [facility] [place] Potassium, pl 4.5 3.5 - 5.3 mmol/L [facility] [place] Chloride 105 98 - 110 mmol/L [facility] [place] CO2 28 20 - 32 mmol/L [facility] [place] Calcium 9.4 8.6 - 10.3 mg/dL [facility] [place] Protein, sr 5.7(L) 6.1 - 8.1 g/dL [facility] [place] Albumin 4.2 3.6 - 5.1 g/dL [facility] [place] GLOBULIN 1.5(L) 1.9 - 3.7 g/dL (calc) [facility] [place] Alb/glob ratio 2.8(H) 1.0 - 2.5 (calc) [facility] [place] Bilirubin, total 0.6 0.2 - 1.2 mg/dL [facility] [place] Alk phos 429(H) 36 - 130 U/L [facility] [place] AST 47(H) 10 - 40 U/L [facility] [place] ALT (SGPT) 67(H) 9 - 46 U/L [facility] [place] 01/06/2020 8:59 AM MANAGER INVESTMENT BANKING 01/06/2020 9:00 AM MANAGER INVESTMENT BANKING Narrative [facility] - 01/17/2020 3:22 PM CDT PT VARIFIED THIS IS THE CORRECT ORDER FOR TODAY FASTING:NO FASTING: NO Resulting Agency Comment Performing Organization Information: ?Site ID: [place] ?Name: [facility] ?Address: [address] [place] [address] [place] [address] ?Director: Jason Buckner D.O., MPH Theodore Gresham MD LAB BLOOD ORDERABLES Final Result Performing Organization Address [facility] Co de Phone Number [facility] [place] * (ABNORMAL) Gamma GT (01/06/2020 8:59 AM MANAGER INVESTMENT BANKING) GGT 323(H) 3 - 70 U/L [facility] [place] 01/06/2020 8:59 AM MANAGER INVESTMENT BANKING 01/06/2020 9:00 AM MANAGER INVESTMENT BANKING Narrative [facility] - 01/17/2020 3:22 PM CDT PT VARIFIED THIS IS THE CORRECT ORDER FOR TODAY FASTING:NO FASTING: NO Resulting Agency Comment Performing Organization Information: ?Site ID: [place] ?Name: [facility] ?Address: [address] [place] [address] [place] [address] ?Director: Jason Buckner D.O., MPH Theodore Gresham MD LAB BLOOD ORDERABLES Final Result Performing Organization Address [facility]/ZIP Co de Phone Number [facility] [place] * CBC with auto differential (01/06/2020 8:59 AM MANAGER INVESTMENT BANKING) WBC 9.3 3.8 - 10.8 Thousand/u L [facility] [place] RBC, POC 4.74 4.20 - 5.80 Million/uL [facility] [place] Hgb 15.4 13.2 - 17.1 g/dL [facility] [place] Hct 45.2 38.5 - 50.0 % [facility] [place] MCV 95.4 80.0 - 100.0 fL [facility] [place] MCH 32.5 27.0 - 33.0 pg [facility] [place] MCHC 34.1 32.0 - 36.0 g/dL [facility] [place] Rdw 14.8 11.0 - 15.0 % [facility] [place] Platelets 333 140 - 400 Thousand/u L [facility] [place] MPV 9.9 7.5 - 12.5 fL [facility] [place] Neutrophils, abs 4,827 1,500 - 7,800 cells/uL [facility] [place] Lymphocytes, abs 3,562 850 - 3,900 cells/uL [facility] [place] Monocyte abs 763 200 - 950 cells/uL [facility] [place] Eosinophils, abs 28 15 - 500 cells/uL [facility] [place] Basophils, abs 121 0 - 200 cells/uL [facility] [place] Neutrophils 51.9 % [facility] [place] Lymphocyte pct 38.3 % [facility] [place] Monocytes 8.2 % [facility] [place] Eosinophils 0.3 % [facility] [place] Basophils 1.3 % [facility] [place] 01/06/2020 8:59 AM MANAGER INVESTMENT BANKING 01/06/2020 9:00 AM MANAGER INVESTMENT BANKING Narrative [facility] - 01/17/2020 3:22 PM CDT PT VARIFIED THIS IS THE CORRECT ORDER FOR TODAY FASTING:NO FASTING: NO Resulting Agency Comment Performing Organization Information: ?Site ID: [place] ?Name: [facility] ?Address: [address] [place] [address] [place] [address] ?Director: Jason Buckner D.O., MPH us Theodore Gresham MD LAB BLOOD ORDERABLES Final Result [facility] [place] * COPY(IES) SENT TO: (01/06/2020 8:59 AM MANAGER INVESTMENT BANKING) COPY(IES) SENT TO: [facility] Comment: ?[facility] LIVER - COPY TO ACCT ?[address] ?[place] [address] 01/06/2020 8:59 AM MANAGER INVESTMENT BANKING 01/06/2020 9:00 AM MANAGER INVESTMENT BANKING Narrative [facility] - 01/17/2020 3:22 PM CDT PT VARIFIED THIS IS THE CORRECT ORDER FOR TODAY FASTING:NO FASTING: NO us Theodore Gresham MD LAB BLOOD ORDERABLES Final Result [facility] documented in this encounter Visit Diagnoses Not on filedocumented in this encounter Care Teams Rotogravure Press Operator Relationship Specialty Start Date End Date Guero Colunga DO PCP - General Internal Medicine 03/22/19 04/18/23 Amber Montesinos, RN Linoleum Printer Transplant 11/17/19 documented as of this encounter
--- OUTSIDE RECORDS SUMMARY | 2024-10-28 06:23 | XMS_ITS | Encounter Summary ---
Author Organization [facility] Healthcare Address [address] [place] [address] Care Team Providers Care Research Program Internship Name Role Phone Guero Colunga DO Primary Care Provider [phone] Amber Montesinos RN Unavailable [phone] Jil Duncan MD Unavailable [phone] Encounter Details Date Type Department Care Team (Late st Contact Info) Description 02/02/2020 Telephone [facility] Trans[facility] Liver [address] [facility] [phone] [place] [address] Amber Montesinos RN Social History Tobacco Use Types Packs/Day Years Used Date Smoking Tobacco: Never Smokeless Tobacco: Never Alcohol Use Standard Drinks/Week Comments Yes 0 (1 standard drink = 0.6 oz pur e alcohol) occassional Sex and Gender Information Value Date Recorded Sex Assigned at Not on file Legal Sex Male 6:28 AM PUBLIC SERVICE OFFICER Gender Identity Not on file Sexual Orientation Straight 08/22/2021 9: 23 AM CDT COVID-19 Exposure Response Date Recorded In the last month, have you been in contact with someone who was confirmed or suspected to have Coronavirus / COVID-19? No / Unsure 01/17/2020 7:12 AM CDT documented as of this encounter Miscellaneous Notes * Telephone Encounter - Amber Vargas RN - 02/02/2020 4:[address] Gresham contacted by [facility] regarding patient's liver biopsy today. Patient ok to be discharged home- no pus aspirated. Per MD, pt should take antibiotics for 7 days instead of 14. Called patient's mother to update her on going home (not being admitted as previously discussed). Discussed with mother that we will update her as soon as we have results from the biopsy. Mother verbalized understanding. Pt added to pathology conference. Labs from prior to biopsy reviewed with Dr. Gresham. documented in this encounter Plan of Treatment Scheduled Procedures Name Priority Associated Diagnoses Date/Ti me COLONOSCOPY Encounter for screening for colorectal cancer in high risk patient Family history of rectal cancer documented as of this encounter Visit Diagnoses Not on filedocumented in this encounter Care Teams Research Program Internship Relationship Specialty Start Date End Date Guero Colunga DO PCP - General Internal Medicine 03/22/19 04/18/23 Amber Montesinos RN Paint Tinter Transplant 11/17/19 Jil Duncan MD Consulting Physician Infectious Diseases 01/10/20 documented as of this encounter
--- OUTSIDE RECORDS SUMMARY | 2024-10-28 06:23 | XMS_ITS | Encounter Summary ---
Author Organization [facility] Healthcare Address [address] [place] [address] Care Team Providers Care Building Maintenance Custodian Name Role Phone Guero Colunga DO Primary Care Provider [phone] Amber Montesinos RN Unavailable [phone] Jil Duncan MD Unavailable [phone] Encounter Details Date Type Department Care Team (Late st Contact Info) Description 02/08/2020 Telephone [facility] Trans[facility] Liver [address] 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 No / Unsure 01/17/2020 7:12 AM CDT documented as of this encounter Miscellaneous Notes * Telephone Encounter - Amber Vargas RN - 02/08/2020 1:35 PM CDT Reviewed patient with Dr. Gresham. Patient presented in pathology conference. There are sharply demarcated areas of necrosis, with surrounding chronic inflammation and reactive changes. Special stains for organisms are negative. Although this is not a prototypic presentation of CMV infection, I will order the CMV stain and report tomorrow. EBV was negative. Per MD, patient should have labs repeated tomorrow. Patient should continue on already prescribed antibiotics for 2 weeks (cipro and flagyl). Pt should have follow up MRI of abdomen/liver 4 weeks after biopsy (scheduled for March 01). Pt should have CMV PCR rechecked and will discuss clinical treatment after PCR is obtained (may need IV abx). Called mother to discuss treatment plan. She is aware to continue antibiotics for 2 weeks. We discussed follow up MRI scheduled for March 01 at the [facility]. Pt needs to arrive at 7:30 to register on the 3rd floor. Reviewed that NPO is not required for this test. Pt mother stating patient will go get labs repeated tomorrow or Wednesday depending on work schedule. documented in this encounter Plan of Treatment Scheduled Procedures Name Priority Associated Diagnoses Date/Ti me COLONOSCOPY Encounter for screening for colorectal cancer in high risk patient Family history of rectal cancer documented as of this encounter Visit Diagnoses Not on filedocumented in this encounter Care Teams Building Maintenance Custodian Relationship Specialty Start Date End Date Guero Colunga DO PCP - General Internal Medicine 03/22/19 04/18/23 Amber Montesinos RN Technical Consultant Transplant 11/17/19 Jil Duncan MD Consulting Physician Infectious Diseases 01/10/20 documented as of this encounter
--- OUTSIDE RECORDS SUMMARY | 2024-10-28 06:23 | XMS_ITS | Encounter Summary ---
Author Organization [facility] Healthcare Address [address] [place] [address] Care Team Providers Care Business Performance Analyst Name Role Phone Guero Colunga Primary Care Provider [phone] Amber Montesinos RN Unavailable [phone] Jil Duncan MD Unavailable [phone] Encounter Details Date Type Department Care Team (Late st Contact Info) Description 02/08/[address] [facility] Trans[facility] Liver [address] [facility] [phone] [place] [address] Amber Montesinos RN Social History Tobacco Use Types Packs/Day Years Used Date Smoking Tobacco: Never Smokeless Tobacco: Never Alcohol Use Standard Drinks/Week Comments Yes 0 (1 standard drink = 0.6 oz pur e alcohol) occassional Sex and Gender Information Value Date Recorded Sex Assigned at Not on file Legal Sex Male 6:28 AM [employer] Gender Identity Not on file Sexual Orientation Straight 08/22/2021 9: 23 AM CDT COVID-19 Exposure Response Date Recorded In the last month, have you been in contact with someone who was confirmed or suspected to have Coronavirus / COVID-19? No / Unsure 01/17/2020 7:12 AM CDT documented as of this encounter Miscellaneous Notes * Telephone Encounter - Amber Leon RN - 02/08/2020 1:03 PM CDT Are there any changes to insurance? If there is a change, please indicate the new insurance details below. If it is unchanged to what is already in Epic, simply warren each with N/A Primary Insurance: Patient ID#: Group#: Insurance Phone#: Radiology Test Request Details Need pre-cert for: MRI Abdomen Liver W WO Contrast Ordering physician: Theodore Gresham CPT Code: 63418 CPT Code description:MRI Abdomen Liver W WO Contrast ICD-10 Code: Z94.4; R74.8 ICD-10 Code description: Liver transplant recipient; elevated liver enymes Patient is having test due to:f/u imaging for lesion found on MRCP 2020 Complications patient is having: f/u imaging for lesion found on MRCP 2020 Testing is to rule out the following: f/u imaging for lesion found on MRCP 2020 Facility/Location test will be done: [facility] Date test will be done: March 01, 2020 documented in this encounter Plan of Treatment Scheduled Orders Name Type Priority Associated Diagnoses Orde r Schedule CMV PCR Quant - Miscellaneous Test Lab Routine History of liver transplant (CMS/HCC) Cytomegalovirus infection, unspecified cytomegaloviral infection type (CMS/HCC) Expected: 02/09/2020 (Approximate), Expires: 02/07/2021 Scheduled Procedures Name Priority Associated Diagnoses Date/Ti pa COLONOSCOPY Encounter for screening for colorectal cancer in high risk patient Family history of rectal cancer documented as of this encounter Procedures Procedure Name Priority Date/Time Associated Diagnosis Comments TEST AUTHORIZATION Routine 02/09/2020 12 :52 PM CDT COPY(IES) SENT TO: Routine 02/09/2020 12 :52 PM CDT CMV DNA QN, PCR Routine 02/09/2020 12:52 PM CDT TACROLIMUS LEVEL, TROUGH Routine 02/09/2020 12:52 PM CDT History of liver transplant (CMS/HCC) CBC WITH AUTO DIFFERENTIAL Routine 02/09/2020 12:52 PM CDT History of liver transplant (CMS/HCC) GAMMA GT Routine 02/09/2020 12:52 PM CDT History of liver transplant (CMS/HCC) COMPREHENSIVE METABOLIC PANEL Routine 02/09/2020 12:52 PM CDT History of liver transplant (CMS/HCC) documented in this encounter Results * (ABNORMAL) CMV DNA QN, PCR (02/09/2020 12:52 PM CDT) SOURCE Whole Blood [email or web address] CMV DNA qn 3,723(HH) <200 IU/mL [email or web address] CMV DNA log IU/mL 3.57(H) <2.30 log IU/mL [email or web address] Comment: This test was developed and its analytical performance characteristics have been determined by [employer] It has not been cleared or approved by the U.S. Food and Drug Administration. This assay has been validated pursuant to the CLIA regulations and is used for clinical purposes. For additional information, please refer to http://education.[employer].Jiujiuweikang/faq/CMVandEBVPCR (This link is being provided for informational/ educational purposes only.) ? 02/09/2020 12:5 2 PM CDT 02/09/2020 12:53 PM CDT Narrative [facility] - 02/14/2020 6:55 AM CDT FASTING:NO FASTING: NO Resulting Agency Comment Performing Organization Information: ?Site ID: [id number] ?Name: [employer] Count includes the [facility] ?Address: [address] [place] [address] [address] [place], [place] ?Director: Severino Chavez M.D.,PhD Theodore Gresham MD LAB MICROBIOLOGY - GENERAL ORDERABLES Final Result [facility] [place], [place] * TEST AUTHORIZATION (02/09/2020 12:52 PM CDT) Test name CYTOMEGALOVIRUS SOLITARIO ALMENDAREZ, [email or web address] [place] TEST CODE: [id number] [email or web address] [place] CLIENT CONTACT: LEXIE LEON [email or web address] [place] Report Always Message [facility] - [place] Comment: The laboratory testing on this patient was verbally requested or confirmed by the ordering physician or his or her authorized commercial pest control representative after contact with an employee of [employer]. Federal regulations require that we maintain on file written authorization for all laboratory testing. ??Accordingly we are asking that the ordering physician or his or her authorized commercial pest control representative sign a copy of this report and promptly return it to the strategic client executive. Signature: Comment [email or web address] [place] Comment: Fax number: [phone] 02/09/2020 12:5 2 PM CDT 02/09/2020 12:[address] [facility] - 02/14/2020 6:55 AM CDT FASTING:NO FASTING: NO Resulting Agency Comment Performing Organization Information: ?Site ID: [place] ?Name: [employer] ?Address: [id number] [place] [id number] ?Director: Jason Buckner D.O., MPH Theodore Gresham MD LAB BLOOD ORDERABLES Final Result [email or web address] - [place] * COPY(IES) SENT TO: (02/09/2020 12:52 PM CDT) COPY(IES) SENT TO: [facility] Comment: ?[facility] LIVER - COPY TO ACCT ?[address] [facility] [address] 02/09/2020 12:5 2 PM CDT 02/09/2020 12:53 PM CDT Narrative [facility] - 02/14/2020 6:55 AM CDT FASTING:NO FASTING: NO Theodore Gresham MD LAB BLOOD ORDERABLES Final Result [facility] * (ABNORMAL) Comprehensive metabolic panel (02/09/2020 12:52 PM CDT) Pathologist [facility] Glucose 97 65 - 139 mg/dL [facility] [place] Comment: ? Non-fasting reference interval BUN 10 7 - 25 mg/dL [facility] [place] Creatinine 0.86 0.60 - 1.35 mg/dL [facility] [place] eGFR NON-AFR. CAMEROONIAN 119 > OR = 60 mL/min/1. 73m2 [facility] [place] EGFR 138 > OR = 60 mL/min/1. 73m2 [facility] [place] BUN/creat ratio NOT APPLICABLE 6 - 22 (calc) [facility] [place] Sodium 140 135 - 146 mmol/L [facility] [place] Potassium, pl 4.2 3.5 - 5.3 mmol/L [facility] [place] Chloride 105 98 - 110 mmol/L [facility] [place] CO2 26 20 - 32 mmol/L [facility] [place] Calcium 9.5 8.6 - 10.3 mg/dL [facility] [place] Protein, sr 5.4(L) 6.1 - 8.1 g/dL [facility] [place] Albumin 4.1 3.6 - 5.1 g/dL [facility] [place] GLOBULIN 1.3(L) 1.9 - 3.7 g/dL (calc) [facility] [place] Alb/glob ratio 3.2(H) 1.0 - 2.5 (calc) [facility] [place] Bilirubin, total 0.5 0.2 - 1.2 mg/dL [facility] [place] Alk phos 330(H) 36 - 130 U/L [facility] [place] AST 32 10 - 40 U/L [facility] [place] ALT (SGPT) 35 9 - 46 U/L [facility] [place] Blood specimen (specimen) 02/09/2020 12:52 PM CDT 02/09/2020 12:53 PM CDT Narrative [facility] - 02/14/2020 6:55 AM CDT FASTING:NO FASTING: NO Resulting Agency Comment Performing Organization Information: ?Site ID: [id number] ?Name: Jessie Kenny ?Address: [address] [place] [address] ?Director: Jason Buckner D.O., MPH Theodore Gresham MD LAB BLOOD ORDERABLES Final Result Performing Organization Address [facility] de Phone Number [email or web address] [place] * Tacrolimus level trough (02/09/2020 12:52 PM CDT) Tacrolimus, highly Sensitive, LC/MS/MS 7.4 mcg/L [facility] Comment: No definitive therapeutic or toxic ranges have been established. Optimal blood drug levels are influenced by type of transplant, patient response, time post- transplant, co-administration of other drugs, and drug formulation. The following trough range is a suggested guideline: 5.0-20.0 mcg/L. This test was developed and its analytical performance characteristics have been determined by [employer]. It has not been cleared or approved by the FDA. This assay has been validated pursuant to the CLIA regulations and is used for clinical purposes. Blood specimen (specimen) 02/09/2020 12:52 PM CDT 02/09/2020 12:53 PM CDT Narrative [facility] - 02/14/2020 6:55 AM CDT FASTING:NO FASTING: NO Resulting Agency Comment Performing Organization Information: ?Site ID: [place] ?Name: Jessie Kenny ?Address: [address] [place] [address] ?Director: Jason Buckner D.O., MPH Theodore Gresham MD LAB BLOOD ORDERABLES Final Result Performing Organization Address [facility] Co de Phone Number [place] Armando * (ABNORMAL) Gamma GT (02/09/2020 12:52 PM CDT) GGT 271(H) 3 - 70 U/L [facility] [place] Blood specimen (specimen) 02/09/2020 12:52 PM CDT 02/09/2020 12:53 PM CDT Narrative [facility] - 02/14/2020 6:55 AM CDT FASTING:NO FASTING: NO Resulting Agency Comment Performing Organization Information: ?Site ID: [place] ?Name: [employer] ?Address: [facility] [place] [address] ?Director: Jason Buckner D.O., MPH us Theodore Gresham MD LAB BLOOD ORDERABLES Final Result [facility] [place] * (ABNORMAL) CBC with auto differential (02/09/2020 12:52 PM CDT) WBC 6.5 3.8 - 10.8 Thousand/ uL [facility] [place] RBC, POC 4.70 4.20 - 5.80 Million/u L [facility] [place] Hgb 15.2 13.2 - 17.1 g/dL [facility] [place] Hct 44.2 38.5 - 50.0 % [facility] [place] MCV 94.0 80.0 - 100.0 fL [facility] [place] MCH 32.3 27.0 - 33.0 pg [facility] [place] MCHC 34.4 32.0 - 36.0 g/dL [facility] [place] Rdw 15.3(H) 11.0 - 15.0 % [facility] [place] Platelets 372 140 - 400 Thousand/ uL [facility] [place] MPV 9.8 7.5 - 12.5 fL [facility] [place] Comment [facility] [place] Comment:Moderate Reactive Ly mphocytes Noted (11-30 per 100 WBC) Neutrophils, abs 852(L) 1,500 - 7,800 cells/uL [facility] [place] ABSOLUTE LYMPHOCYTES 4,596(H) 850 - 3,900 cells/uL [facility] [place] Monocyte abs 923 200 - 950 cells/uL [facility] [place] Eosinophils, abs 0(L) 15 - 500 cells/uL [facility] [place] Basophils, abs 130 0 - 200 cells/uL [facility] [place] Neutrophils 13.1 % [facility] [place] Lymphocyte pct 70.7 % [facility] [place] Monocytes 14.2 % [facility] [place] Eosinophils 0 % [facility] [place] Basophils 2.0 % [facility] [place] Note [facility] [place] Comment: Although an automated CBC was ordered, our instrumentation detected an abnormality on your patient's specimen requiring us to perform a manual review. Blood specimen (specimen) 02/09/2020 12:52 PM CDT 02/09/2020 12:53 PM CDT Narrative [facility] - 02/14/2020 6:55 AM CDT FASTING:NO FASTING: NO Resulting Agency Comment Performing Organization Information: ?Site ID: [place] ?Name: [employer] ?Address: [facility] [place] [address] ?Director: Jason Buckner D.O., JAKOB us Theodore Gresham MD LAB BLOOD ORDERABLES Final Result [facility] [place] documented in this encounter Visit Diagnoses Diagnosis History of liver transplant (CMS/HCC) (HCC)- Primary Liver replaced by transplant Elevated liver enzymes Other nonspecific abnormal serum enzyme levels Cytomegalovirus infection, unspecified cytomegaloviral infection type (HCC) documented in this encounter Care Teams Business Performance Analyst Relationship Specialty Start Date End Date Guero Colunga DO PCP - General Internal Medicine 03/22/19 04/18/23 Amber Montesinos RN Scuba Diving Instructor Transplant 11/17/19 Jil Duncan MD Consulting Physician Infectious Diseases 01/10/20 documented as of this encounter
--- OUTSIDE RECORDS SUMMARY | 2024-10-28 06:23 | XMS_ITS | Encounter Summary ---
Author Organization [facility] Address [address] [place] [address] Phone Care Team Providers Care Railcar Switcher Name Role Phone Guero Colunga DO Primary Care Provider Amber Montesinos RN Unavailable [phone] Jil Duncan MD Unavailable [phone] Encounter Details Date Type Department Care Team (Late st Contact Info) Description 01/17/2020 8:00 AM CDT Office Visit [facility] [address] [facility] 7th [place] [address] [place] [address] Anita Gillespie MD [address] [facility] [address] [place] [address] 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); High grade B-cell lymphoma (CMS/HCC) Social History Tobacco Use Types Packs/Day Years Used Date Smoking Tobacco: Never Smokeless Tobacco: Never Alcohol Use Standard Drinks/Week Comments Yes 0 (1 standard drink = 0.6 oz pur e alcohol) occassional Sex and Gender Information Value Date Recorded Sex Assigned at Not on file 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 Gender Identity Not on file Sexual [...] Sign Reading Time Taken Comments Blood Pressure 99/65 01/17/2020 7:18 AM CDT Pulse 72 01/17/2020 7:18 AM CDT Temperature 36.7 ??C (98 ??F) 01/17/2020 7:18 AM CDT Respiratory Rate 18 01/17/2020 7:18 AM CDT Oxygen Saturation 98% 01/17/2020 7:18 AM CDT Inhaled Oxygen Concentration - - Weight 56.9 kg (125 lb 6.4 oz) 01/17/2020 7:18 A M CDT Height - - Body Mass Index 19.07 12/25/2019 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 2. 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 3. Bilateral pulmonary emboli diagnosed on 10/19/2017. TREATMENT AND DISEASE COURSE: 1. R-CHOP x 1, 08/25/2017. 2. Dose adjusted EPOCH-R x 5, 09/15/2017 - 12/2017. Post-C2 PET: ID (5PS = 4), CR post C5 3. IT chemotherapy (MTX), only with cycle 3 on 10/06/2017, complicated by intracranial hypotension. 4. R cervical LNBx, 01/06/19, EBV+ florid follicular hyperplasia, c/w possible early PTLD. INTERVAL HISTORY: Adi returns to the [facility] for continued follow-up of his history of PTLD and persistent adenopathy. I last saw him on 11/22/2019. At that time, he had been recently hospitalized forpneumonia and fevers, and an increase in his cervical lymphadenopathy. He had a PET-CT at that time, which showed marked increase in size and FDG avidity of diffuse lymphadenopathy, above and below the diaphragm. He underwent a cervical lymph node biopsy on 10/13/2019, which showed a reactive lymphnode which was JAKOB negative. Since his last visit, he was again hospitalized on 12/21/2019 for about 24 hours. He had a temperature of 102 and was positive for rhinovirus. He had persistent fevers even after discharge, and he saw the Infectious Disease team on December 25 and was given Levaquin for 7 days, with complete resolution of fevers. He also had positive CMV PCR, and he remains on valganciclovir. His liver enzymes have been modestly elevated, and he is scheduled for an MRCP on 2020. He has been feeling quite well over the last couple of weeks. He has not had any recurrent fevers, and he has not noted any change in his cervical adenopathy. He denies headaches, cough, shortnessof breath, abdominal pain or bloating, or lower extremity edema. 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 PHYSICAL EXAMINATION: General: Very well-appearing young man, resting comfortably. Performance Status: 0. Vital Signs: Blood pressure 99/65, pulse 72, temperature 36.7, O2 sat 98%. Weight 56.9 kg, which isunchanged. Lungs: Clear to auscultation. Nodes: A 1.5 x 1 cm left jugulodigastric, and just posterior to the jugulodigastric node, there is another 1 cm node. At low left posterior cervical, there is a chain of 4 subcentimeter lymph nodes, and inferior to this, there is a 1.5 cm node. In the right neck, there is a 1.5 x 1.5 cm right jugulo digastric, 1 cm anterior cervical, 1 cm mid-posterior cervical, and 1 cm low posterior cervical. There is a 2 cm node in the left axilla and a couple of 1 cm nodes. The left axillary lymph node is tender. A 1.5 cm mobile right axillary, several 1 cm left inguinal, and a subcentimeter right inguinal. Abdomen: No hepatosplenomegaly. Extremities: No edema. HEENT: Oropharynx and oral cavity clear. LABORATORY DATA: WBC 6.1, hemoglobin 15.5, hematocrit 45.7, platelets 246, ANC 1.8. Chemistries within normal limits, other than alkaline phosphatase of 357, which is down from his peak of 459 on 12/21/2019. CMV PCR,on January 05, was 1452. IMPRESSION AND PLAN: 1. History of c-Myc positive post-transplant lymphoproliferative disorder, Nadine-De La Cruz virus positive, stage EMY, IPI 3 (stage, LDH, extranodal site). This 24-year-old gentleman is now 2 years status post 5 cycles of dose-adjusted EPOCH-R. He has never had any evidence of recurrence. His course has been difficult because he has had multiple episodes of progressive adenopathy, which then has resolved spontaneously. Most recently, he was positive for CMV and is currently on valganciclovir. A PETscan in October showed multiple enlarged lymph nodes. Based on physical examination, these have decreased compared to his exam in October, but are still easily palpable. We will continue to follow him expectantly, and we will see him back in 3 months. 2. History of liver transplant. Mr. Nichols remains on tacrolimus 0.5 mg b.i.d. His LFTs are elevated, including a significant elevation of his alkaline phosphatase, which has been going on for the last several months. He is scheduled for an MRCP on 2020. 3. Distant history of pulmonary embolus. The patient is no longer on anticoagulation. 4. Positive CMV PCR. Today's titer is pending. He will continue on valganciclovir 900 mg b.i.d. ELECTRONICALLY SIGNED - 01/20/2020 10:39 PM Anita Gillespie M.D. chemistry quality control technician [facility] Chair in Medical Oncology NB/gayle cc: LENO AGUSTIN MD [address] [facility] [address], [place] [address] LINDA CHAPA MD [address] [place] [address] [address] [place] [address] / documented in this encounter Miscellaneous Notes * Addendum Note - Reta Flanagan - 01/17/2020 8:00 AM CDTAddended by: RETA FLANAGAN on: 03/13/2020 07:06 AM Modules accepted: Orders documented in this encounter Plan of Treatment Scheduled Procedures Name Priority Associated Diagnoses Date/Ti me COLONOSCOPY Encounter for screening for colorectal cancer in high risk patient Family history of rectal cancer documented as of this encounter Results * (ABNORMAL) CBC with auto differential (03/13/2020 7:15 AM CDT) WBC 6.5 3.8 - 9.8 K/cumm [facility] Comment:Testing performed by : [address] [address] Hgb 15.1 13.8 - 17.2 g/dL [facility] Comment:Testing performed by : [address] [address] Hct 44.4 40.7 - 50.3 % [facility] Comment:Testing performed by : [address] [phone] Plt 222 140 - 440 K/cumm [facility] Comment:Testing performed by : [address] [address] MPV 7.5 6.8 - 10.4 fL [facility] Comment:Testing performed by : [address] [phone] RBC 4.49(L) 4.50 - 5.70 M/cumm [facility] Comment:Testing performed by : [address] [address] MCV 98.9(H) 80.0 - 97.6 fL [facility] Comment:Testing performed by : [address] [address] MCH 33.7 26.7 - 33.7 pg [facility] Comment:Testing performed by : [address] [address] MCHC 34.1 32.7 - 35.5 g/dL [facility] Comment:Testing performed by : [facility], [address] [place] [phone] RDW CV 16.2(H) 11.8 - 14.6 % [facility] Comment:Testing performed by : [facility], [address] [place] [phone] NRBC abs 0.00 0.00 - 0.01 K/cumm [facility] Comment:Testing performed by : [facility], [address] [place] [phone] Blood specimen (specimen) 03/13/2020 7:15 AM CDT 03/13/2020 7:18 AM CDT Anita Gillespie MD LAB BLOOD ORDERABLES Final Result [facility] Department [place] [address] * (ABNORMAL) Comprehensive metabolic panel (03/13/2020 7:15 AM CDT) Sodium 140 135 - 145 mmol/L [facility] Comment:Testing performed by : [facility], [address] [place] [phone] Potassium, pl 4.3 3.3 - 4.9 mmol/L [facility] Comment:Testing performed by : [facility], [address] [place] [phone] Chloride 105 97 - 110 mmol/L [facility] Comment:Testing performed by : [facility], [address] [place] [phone] CO2 26 22 - 32 mmol/L [facility] Comment:Testing performed by : [facility], [address] [place] [phone] Anion gap 9 2 - 15 mmol/L [facility] Comment:Testing performed by : [facility], [address] [place] [phone] BUN 9 8 - 25 mg/dL [facility] Comment:Testing performed by : [facility], [address] [place] [phone] Creatinine 0.72(L) 0.80 - 1.30 mg/dL [facility] Comment:Testing performed by : [facility], [address] [place] [phone] Glucose 104 70 - 199 mg/dL [facility]ER [...] was last revised 2017. Testing performed by: [place] [id number] Calcium 9.2 8.5 - 10.3 mg/dL [facility] Comment:Testing performed by : [place] [id number] Bilirubin, total 0.5 0.1 - 1.2 mg/dL [facility] Comment:Testing performed by : [address] [address] Protein, pl 6.2(L) 6.5 - 8.5 g/dL [facility] Comment:Testing performed by : [place] [id number] Albumin 4.3 3.5 - 5.0 g/dL [facility] Comment:Testing performed by : [address] [address] Alk phos 486(H) 40 - 130 Units/L [facility] Comment:Testing performed by : [place] [id number] ALT 53 7 - 55 Units/L [facility] Comment:Testing performed by : [place] [id number] AST 52(H) 10 - 50 Units/L [facility] Comment:Testing performed by : [address] [address] Blood specimen (specimen) 03/13/2020 7:15 AM CDT 03/13/2020 7:19 AM CDT Anita Gillespie MD LAB BLOOD ORDERABLES Final Result Performing Organization Address [facility] de Phone Number [facility] Department [place] [address] * (ABNORMAL) Lactate dehydrogenase (LD) (03/13/2020 7:15 AM CDT) Lactate dehydrogenase (LDH) 273(H) 100 - 250 Units/L [facility] Comment:Testing performed by : [facility], [address] [place] [phone] Blood specimen (specimen) 03/13/2020 7:15 AM CDT 03/13/2020 7:19 AM CDT Anita Gillespie MD LAB BLOOD ORDERABLES Final Result Performing Organization Address [facility] de Phone Number [facility] 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 High grade B-cell lymphoma (HCC) documented in this encounter Discontinued Medications Medication Sig Discontinue Reason Start Date End Da te acyclovir (ZOVIRAX) 400 mg tablet Take 450 mg by mouth every 4 (four) hours while awake 01/17/2020 documented as of this encounter Orders Appointment Requests Count Last Ordered Date Fi rst Ordered Date ONCBCN CLINIC APPOINTMENT REQUEST 2 020 01/17/2020 ONCBCN LAB APPOINTMENT 1 03/13/2020 documented in this encounter Care Teams Railcar Switcher Relationship Specialty Start Date End Date Guero Colunga DO PCP - General Internal Medicine 03/22/19 04/18/23 Amber Montesinos, SHAILESH Generator Operator Transplant 11/17/19 Jil Duncan MD Consulting Physician Infectious Diseases 01/10/20 documented as of this encounter
--- OUTSIDE RECORDS SUMMARY | 2024-10-28 06:23 | XMS_ITS | Encounter Summary ---
Author Organization [facility] Healthcare Address [address] [place] [address] Care Team Providers Care Grades 9 Thru 12 Visiting Teacher Name Role Phone Guero Colunga Primary Care Provider [phone] Amber Montesinos RN Unavailable [phone] Encounter Details Date Type Department Care Team (Late st Contact Info) Description 12/28/2019 Telephone [facility] Transplant Liver [address] [facility] [phone] [place] [address] Amber Montesinos, RN Social History Tobacco Use Types Packs/Day Years Used Date Smoking Tobacco: Never Smokeless Tobacco: Never Alcohol Use Standard Drinks/Week Comments Yes 0 (1 standard drink = 0.6 oz pur e alcohol) occassional Sex and Gender Information Value Date Recorded Sex Assigned at Not on file Legal Sex Male 6:28 AM LEVEE SUPERINTENDENT Gender Identity Not on file Sexual Orientation Straight 08/22/2021 9: 23 AM CDT documented as of this encounter Ordered Prescriptions Prescription Sig Dispense Quantity Refills Last Filled Start Date End Date valGANciclovir (VALCYTE) 450 mg tabletIndications: Other (complete free text reason below),CMV Viremia Take 2 tablets (900 mg total) by mouth 2 (two) times a day 120 tablet 12/28/2019 0 documented in this encounter Miscellaneous Notes * Telephone Encounter - Amber Vargas RN - 12/28/2019 11:51 AM LEVEE SUPERINTENDENT Received result of patient's CMV genotype from [facility]: Testing not performed. ???We were unable to obtain a genotype from this sample. Reasons for failureto genotype commonly include: insufficient viral load, mutations in genome at the priming sites, orpresence of PCR inhibitors. Please correlate this result with a recent viral load for this patient and submit a new sample?? . Reviewed testing with Dr. Lemus and Dr. Duncan. Per Dr. 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 Placed call to patient's mother to review test results. Also reviewed with mother current plan per Dr. Duncan- continuing current valcyte dose and having patient get repeat labs in [address] Lemus. Mother requesting one time 30 day refill of valcyte. Noted to have a high copay on last refill. Sending her social sciences chair's contact info to see if the script still has a high dorman if there is any assistance available to them. E SUPERINTENDENT documented in this encounter Plan of Treatment Scheduled Procedures Name Priority Associated Diagnoses Date/Ti me COLONOSCOPY Encounter for screening for colorectal cancer in high risk patient Family history of rectal cancer documented as of this encounter Visit Diagnoses Not on filedocumented in this encounter Discontinued Medications Medication Sig Discontinue Reason Start Date End Da te valGANciclovir (VALCYTE) 450 mg tabletIndications:Other (complete free text reason below),CMV Viremia Take 2 tablets (900 mg total) by mouth 2 (two) times a day Reorder 12/21/2019 12/28/2019 documented as of this encounter Additional Health Concerns Infection Onset Date Last Indicated Resolved Time Rhino/Enterovirus 12/21/2019 12/21/2019 12/28/2019 3:05 AM LEVEE SUPERINTENDENT documented as of this encounter Care Teams Grades 9 Thru 12 Visiting Teacher Relationship Specialty Start Date End Date Guero Colunga DO PCP - General Internal Medicine 03/22/19 04/18/23 Amber Montesinos RN Unix Manager Transplant 11/17/19 documented as of this encounter
--- OUTSIDE RECORDS SUMMARY | 2024-10-28 06:23 | XMS_ITS | Encounter Summary ---
Author Organization [facility] Healthcare Address [address] [place] [address] Care Team Providers Care Director Professional Services Name Role Phone Guero Colunga Primary Care Provider [phone] Amber Montesinos RN Unavailable [phone] Jil Duncan MD Unavailable [phone] Encounter Details Date Type Department Care Team (Late st Contact Info) Description 01/18/2020 Telephone [facility] Transplant Liver [address] 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 No / Unsure 01/17/2020 7:12 AM CDT documented as of this encounter Miscellaneous Notes * Telephone Encounter - Eli Brink - 01/18/2020 10:04 AM CDT Images from the original note were not included. documented in this encounter Plan of Treatment Scheduled Procedures Name Priority Associated Diagnoses Date/Ti me COLONOSCOPY Encounter for screening for colorectal cancer in high risk patient Family history of rectal cancer documented as of this encounter Visit Diagnoses Not on filedocumented in this encounter Care Teams Director Professional Services Relationship Specialty Start Date End Date Guero Colunga DO PCP - General Internal Medicine 03/22/19 04/18/23 Amber Montesinos, RN Ice Skating Instructor Transplant 11/17/19 Jil Duncan MD Consulting Physician Infectious Diseases 01/10/20 documented as of this encounter
--- OUTSIDE RECORDS SUMMARY | 2024-10-28 06:23 | XMS_ITS | Encounter Summary ---
Author Organization [facility] Address [address] [place] [address] Phone Care Team Providers Care Trimmer Operator Three Knife Name Role Phone Guero Colunga DO Primary Care Provider [phone] Amber Montesinos RN Unavailable [phone] Jil Duncan MD Unavailable [phone] Encounter Details Date Type Department Care Team (Late st Contact Info) Description 01/17/2020 7:00 AM CDT Lab [facility] Oncology [address] [place] [address] 7th [place] [address] [place] [address] High grade B-cell lymphoma (CMS/HCC) Social History Tobacco Use Types Packs/Day Years Used Date Smoking Tobacco: Never Smokeless Tobacco: Never Alcohol Use Standard Drinks/Week Comments Yes 0 (1 standard drink = 0.6 oz pur e alcohol) occassional Sex and Gender Information Value Date Recorded Sex Assigned at Not on file Legal Sex Male 6:28 AM CONTRACT ADMINISTRATION SPECIALIST Gender Identity Not on file Sexual [...] Date/Time Associated Diagnosis Comments DIFFERENTIAL AUTO Routine 01/17/2020 7:1 0 AM CDT High grade B-cell lymphoma (CMS/HCC) CBC WITH AUTO DIFFERENTIAL Routine 01/17/2020 7:10 AM CDT High grade B-cell lymphoma (CMS/HCC) LACTATE DEHYDROGENASE Routine 01/17/2020 7:10 AM CDT High grade B-cell lymphoma (CMS/HCC) COMPREHENSIVE METABOLIC PANEL Routine 01/17/2020 7:10 AM CDT High grade B-cell lymphoma (CMS/HCC) documented in this encounter Results * Differential, auto (01/17/2020 7:10 AM CDT) Neutrophil abs 1.8 1.8 - 6.6 K/cumm [facility] Comment:Testing performed by : [facility], [address] [place] [phone] Lymphocyte abs 3.0 1.2 - 3.3 K/cumm [facility] Comment:Testing performed by : [facility], [address] [place] [phone] Monocyte abs 1.1 0.2 - 1.2 K/cumm [facility] Comment:Testing performed by : [facility], [address] [place] [phone] Eosinophil abs 0.1 0.0 - 0.5 K/cumm [facility] Comment:Testing performed by : [facility], [address] [place] [phone] Basophil abs 0.0 0.0 - 0.2 K/cumm [facility] Comment:Testing performed by : [facility], [address] [place] [phone] Neutrophil pct 29.2 % [facility] Comment: Interpretive Data Percent cell count reference ranges are not reported, since discordance with absolute values may lead to misinterpretation of CBC data. Current Interpretive Data was last revised on 2018. Testing performed by: [facility], [address] [place] [phone] Lymphocyte pct 50.1 % [facility] Comment: Interpretive Data Percent cell count reference ranges are not reported, since discordance with absolute values may lead to misinterpretation of CBC data. Current Interpretive Data was last revised on 2018. Testing performed by: [facility], [address] [place] [phone] Monocyte pct 18.6 % [facility] Comment:Testing performed by : [facility], [address] [place] [phone] Eosinophil pct 1.6 % [facility] Comment:Testing performed by : [facility], [address] [place] [phone] Basophil pct 0.5 % [facility] Comment:Testing performed by : [facility], [address] [place] [phone] Blood specimen (specimen) 01/17/2020 7:10 AM CDT 01/17/2020 7:11 AM CDT Anita Gillespie MD LAB BLOOD ORDERABLES Final Result [facility] Department of Laboratories [place], [place] [id number] * (ABNORMAL) CBC with auto differential (01/17/2020 7:10 AM CDT) WBC 6.1 3.8 - 9.8 K/cumm [facility] Comment:Testing performed by : [facility], [address] [place] [phone] Hgb 15.5 13.8 - 17.2 g/dL [facility] Comment:Testing performed by : [facility], [address] [place] [phone] Hct 45.7 40.7 - 50.3 % [facility] Comment:Testing performed by : [address] [phone] Plt 246 140 - 440 K/cumm [facility] Comment:Testing performed by : [facility], [address] [place] [phone] MPV 7.3 6.8 - 10.4 fL [facility] Comment:Testing performed by : [facility], [address] [place], [place] [phone] RBC 4.67 4.50 - 5.70 M/cumm [facility] Comment:Testing performed by : [place] [phone] MCV 97.9(H) 80.0 - 97.6 fL [facility] Comment:Testing performed by : [facility], [address] [place] [phone] MCH 33.3 26.7 - 33.7 pg [facility] Comment:Testing performed by : [address] [address] MCHC 34.0 32.7 - 35.5 g/dL [facility] Comment:Testing performed by : [facility], [address] [place], [place] [phone] RDW CV 15.7(H) 11.8 - 14.6 % [facility] Comment:Testing performed by : [facility], [address] [place] [phone] NRBC abs 0.00 0.00 - 0.01 K/cumm [facility] Comment:Testing performed by : [address] [phone] Blood specimen (specimen) 01/17/2020 7:10 AM CDT 01/17/2020 7:11 AM CDT us Anita Gillespie MD LAB BLOOD ORDERABLES Final Result [facility] Department [place] [address] * (ABNORMAL) Comprehensive metabolic panel (01/17/2020 7:10 AM CDT) Sodium 141 135 - 145 mmol/L [facility] Comment:Testing performed by : [facility], [address] [place] [phone] Potassium, pl 4.6 3.3 - 4.9 mmol/L [facility] Comment:Testing performed by : [facility], [address] [place] [phone] Chloride 103 97 - 110 mmol/L [facility] Comment:Testing performed by : [facility], [address] [place] [phone] CO2 30 22 - 32 mmol/L [facility] Comment:Testing performed by : [facility], [address] [place] [phone] Anion gap 8 2 - 15 mmol/L [facility] Comment:Testing performed by : [facility], [address] [place] [phone] BUN 8 8 - 25 mg/dL [facility] Comment:Testing performed by : [facility], [address] [place] [phone] Creatinine 0.77(L) 0.80 - 1.30 mg/dL [facility] Comment:Testing performed by : [facility], [address] [place] [phone] Glucose 104 70 - 199 mg/dL [facility] [...] last revised 2017. Testing performed by: [facility], [address] [place] [phone] Calcium 8.8 8.5 - 10.3 mg/dL [facility] Comment:Testing performed by : [facility], [address] [place] [phone] Bilirubin, total 0.5 0.1 - 1.2 mg/dL [facility] Comment:Testing performed by : [facility], [address] [place] [phone] Protein, pl 5.8(L) 6.5 - 8.5 g/dL [facility] Comment:Testing performed by : [facility], [address] [place] [phone] Albumin 3.9 3.5 - 5.0 g/dL [facility] Comment:Testing performed by : [facility], [address] [place] [phone] Alk phos 357(H) 40 - 130 Units/L [facility] Comment:Testing performed by : [facility], [address] [place] [phone] ALT 56(H) 7 - 55 Units/L [facility] Comment:Testing performed by : [facility], [address] [place] [phone] AST 49 10 - 50 Units/L [facility] Comment:Testing performed by : [facility], [address] [place] [phone] Blood specimen (specimen) 01/17/2020 7:10 AM CDT 01/17/2020 7:11 AM CDT us Anita Gillespie MD LAB BLOOD ORDERABLES Final Result Performing Organization Address City/[facility]/ZIP Co de Phone Number [facility] [place] [address] * Lactate dehydrogenase (LD) (01/17/2020 7:10 AM CDT) Lactate dehydrogenase (LDH) 231 100 - 250 Units/L [facility] Comment:Testing performed by : [facility], [address] [place] [phone] Blood specimen (specimen) 01/17/2020 7:10 AM CDT 01/17/2020 7:11 AM CDT us Anita Gillespie MD LAB BLOOD ORDERABLES Final Result [facility] [place] [address] documented in this encounter Visit Diagnoses Diagnosis High grade B-cell lymphoma (HCC) documented in this encounter Orders Appointment Requests Count Last Ordered Date Fi rst Ordered Date ONCBCN LAB APPOINTMENT 1 01/17/2020 documented in this encounter Care Teams Trimmer Operator Three Knife Relationship Specialty Start Date End Date Guero Colunga DO PCP - General Internal Medicine 03/22/19 04/18/23 Amber Montesinos, RN Legal Writing Professor Transplant 11/17/19 Jil Duncan MD Consulting Physician Infectious Diseases 01/10/20 documented as of this encounter
--- OUTSIDE RECORDS SUMMARY | 2024-10-28 06:23 | XMS_ITS | Encounter Summary ---
Author Organization [facility] Healthcare Address [address] [place] [address] Care Team Providers Care Sheetrock Applicator Name Role Phone CristineCarsonGuero Primary Care Provider [phone] Amber Montesinos RN Unavailable [phone] Encounter Details Date Type Department Care Team (Late st Contact Info) Description 12/27/2019 Telephone [facility] Transplant Liver [address] [facility] [address] [phone] [place] [address] Rafia Wright Social History Tobacco Use Types Packs/Day Years Used Date Smoking Tobacco: Never Smokeless Tobacco: Never Alcohol Use Standard Drinks/Week Comments Yes 0 (1 standard drink = 0.6 oz pur e alcohol) occassional Sex and Gender Information Value Date Recorded Sex Assigned at Not on file Legal Sex Male 6:28 AM SUPERVISOR JEWELRY DEPARTMENT Gender Identity Not on file Sexual Orientation Straight 08/22/2021 9: 23 AM CDT documented as of this encounter Miscellaneous Notes * Telephone Encounter - Rafia Wright - 12/27/2019 2:37 PM CST Pt's mom would like return call with 12/22/19 cmv results.. [phone] RVISOR JEWELRY DEPARTMENT documented in this encounter Plan of Treatment Scheduled Procedures Name Priority Associated Diagnoses Date/Ti me COLONOSCOPY Encounter for screening for colorectal cancer in high risk patient Family history of rectal cancer documented as of this encounter Visit Diagnoses Not on filedocumented in this encounter Additional Health Concerns Infection Onset Date Last Indicated Resolved Time Rhino/Enterovirus 12/21/2019 12/21/2019 12/28/2019 3:05 AM SUPERVISOR JEWELRY DEPARTMENT documented as of this encounter Care Teams Sheetrock Applicator Relationship Specialty Start Date End Date Guero Colunga DO PCP - General Internal Medicine 03/22/19 04/18/23 Amber Montesinos, RN Clinical Application Consultant Transplant 11/17/19 documented as of this encounter
--- OUTSIDE RECORDS SUMMARY | 2024-10-28 06:23 | XMS_ITS | Encounter Summary ---
Author Organization [facility] Healthcare Address [address] [place] [address] Care Team Providers Care Fork Lift Truck Operator Name Role Phone Guero Colunga DO Primary Care Provider [phone] Amber Montesinos RN Unavailable [phone] Encounter Details Date Type Department Care Team (Late st Contact Info) Description 01/09/2020 Telephone [facility] Transplant Liver [address] [facility] [address] [id number] [place] [address] Amber Montesinos, SHAILESH Social History Tobacco Use Types Packs/Day Years Used Date Smoking Tobacco: Never Smokeless Tobacco: Never Alcohol Use Standard Drinks/Week Comments Yes 0 (1 standard drink = 0.6 oz pur e alcohol) occassional Sex and Gender Information Value Date Recorded Sex Assigned at Not on file Legal Sex 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 Bautista from 01/05. Pt has been on a treatment dose of valcyte since 11/13/2019. CMV PCR pending from [facility]. Pt's mom reports that patient is feeling great, no issues. Back to work . concerned that pt's liver enzymes are not improving. Pt being followed by , MARIBEL QUINTANILLA. Sent email to Dr. Duncan regarding patient's CMV status and liver enzymes. Awaiting reply. Added a EBV PCR to pt's labs on 01/06/2020 since pt had a positive result on 12/21. Pt has an appt to see Dr. Gillespie next week. Let pt's mom know that last EBV was positive and I will let her know result of add on test. Let pt mom know that she should attempt to touch base with Dr. Duncan's RN, she states she has their number. Called [facility] about patient's valcyte. They denied patient's PA request for valcyte dose. 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 New PA required per account services representative, they will have an answer in 3 days. Will follow up with [facility] as pt may need to apply to [facility]. Discussed with pt's mom, she is aware. documented in this encounter Plan of Treatment Scheduled Procedures Name Priority Associated Diagnoses Date/Ti me COLONOSCOPY Encounter for screening for colorectal cancer in high risk patient Family history of rectal cancer documented as of this encounter Visit Diagnoses Not on filedocumented in this encounter Care Teams Fork Lift Truck Operator Relationship Specialty Start Date End Date Guero Colunga DO PCP - General Internal Medicine 03/22/19 04/18/23 Amber Montesinos, RN Intermediate Manager Transplant 11/17/19 documented as of this encounter
--- OUTSIDE RECORDS SUMMARY | 2024-10-28 06:23 | XMS_ITS | Encounter Summary ---
Author Organization [facility] Healthcare Address [address] [place] [address] Care Team Providers Care Planer Offbearer Name Role Phone Guero Colunga Primary Care Provider [phone] Amber Montesinos RN Unavailable [phone] Jil Duncan MD Unavailable [phone] Encounter Details Date Type Department Care Team (Late st Contact Info) Description 2020 Telephone [facility] Transplant Liver [address] [facility] [address] [phone] [place] [address] Amber Montesinos RN Social History Tobacco Use Types Packs/Day Years Used Date Smoking Tobacco: Never Smokeless Tobacco: Never Alcohol Use Standard Drinks/Week Comments Yes 0 (1 standard drink = 0.6 oz pur e alcohol) occassional Sex and Gender Information Value Date Recorded Sex Assigned at Not on file Legal Sex Male 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 No / Unsure 01/17/2020 7:12 AM CDT documented as of this encounter Miscellaneous Notes * Telephone Encounter - Amber Vargas RN - 2020 1:51 PM CDT Results of MRCP from today reviewed with Dr. Gresham. Pt will be added to imaging conference tomorrow. documented in this encounter Plan of Treatment Scheduled Procedures Name Priority Associated Diagnoses Date/Ti me COLONOSCOPY Encounter for screening for colorectal cancer in high risk patient Family history of rectal cancer documented as of this encounter Visit Diagnoses Not on filedocumented in this encounter Care Teams Planer Offbearer Relationship Specialty Start Date End Date Guero Colunga DO PCP - General Internal Medicine 03/22/19 04/18/23 Amber Montesinos RN Oil Pipeline Dispatcher Transplant 11/17/19 Jil Duncan MD Consulting Physician Infectious Diseases 01/10/20 documented as of this encounter
--- OUTSIDE RECORDS SUMMARY | 2024-10-28 06:23 | XMS_ITS | Encounter Summary ---
Author Organization [facility] Address [address] [place] [address] Phone Care Team Providers Care Grinding Operator Name Role Phone Guero Colunga DO Primary Care Provider [phone] Amber Montesinos RN Unavailable [phone] Jil Duncan MD Unavailable [phone] Encounter Details Date Type Department Care Team (Late st Contact Info) Description 02/07/2020 Telephone [facility] Oncology [facility] 7th [place] [address] [place] [address] Samreen Greene RN Social History Tobacco Use Types Packs/Day Years Used Date Smoking Tobacco: Never Smokeless Tobacco: Never Alcohol Use Standard Drinks/Week Comments Yes 0 (1 standard drink = 0.6 oz pur e alcohol) occassional Sex and Gender Information Value Date Recorded Sex Assigned at Not on file Legal Sex Male 6:28 AM MOTOR SETTER Gender Identity Not on file Sexual Orientation Straight 08/22/2021 9: 23 AM CDT COVID-19 Exposure Response Date Recorded In the last month, have you been in contact with someone who was confirmed or suspected to have Coronavirus / COVID-19? No / Unsure 01/17/2020 7:12 AM CDT documented as of this encounter Miscellaneous Notes * Telephone Encounter - Samreen Greene RN - 02/07/2020 3:35 PM CDT Notified Brooklynn that Beka's liver biopsy showed no involvement by atypical lymphoid proliferation or any other malignancy. The area appears to be infectious. They will likely hear from the Liver teamwithin the next day or so to start an antibiotic. She was relieved to hear this news. They will continue to keep a close eye on his sinus symptoms and closely monitor his lymph nodes. They know to call in the interim with any questions or concerns. documented in this encounter Plan of Treatment Scheduled Procedures Name Priority Associated Diagnoses Date/Ti me COLONOSCOPY Encounter for screening for colorectal cancer in high risk patient Family history of rectal cancer documented as of this encounter Visit Diagnoses Not on filedocumented in this encounter Care Teams Grinding Operator Relationship Specialty Start Date End Date Guero Colunga DO PCP - General Internal Medicine 03/22/19 04/18/23 Amber Montesinos, RN Bowl Sander Transplant 11/17/19 Jil Duncan MD Consulting Physician Infectious Diseases 01/10/20 documented as of this encounter
--- OUTSIDE RECORDS SUMMARY | 2024-10-28 06:23 | XMS_ITS | Encounter Summary ---
Author Organization [facility] Healthcare Address [address] [place] [address] Care Team Providers Care Commercial Real Estate Appraiser Name Role Phone Guero Colunga DO Primary Care Provider [phone] Amber Montesinos RN Unavailable [phone] Jil Duncan MD Unavailable [phone] Encounter Details Date Type Department Care Team (Late st Contact Info) Description 02/01/2020 Telephone 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 No / Unsure 01/17/2020 7:12 AM CDT documented as of this encounter Miscellaneous Notes * Telephone Encounter - Amber Vargas RN - 02/01/2020 10:22 AM CDT Patient scheduled for VIR biopsy of liver lesion tomorrow. Per Neida, patient should be at admitted in [facility] at 08:00am tomorrow morning. Dr. Gresham would like patient to get labs done the same day of the procedure- one time lab work order placed through [facility]. Called patient's mother for instructions on liver biopsy tomorrow. Let her know patient should have nothing to eat or drink after midnight. Confirmed that patient is not on any blood thinners- he should avoid taking aspirin, aleve, tylenol, etc before the procedure. Pt's mom will accompany him to take home- discussed that patient's mother may not be able to accompany pt to admitting due to current visitor restrictions with coronavirus. Pt will stop by 3rd floor [facility] prior to biopsy tomorrow morning to get his labs done (opens at 6:30am). Pt knows how to get to admitting from [facility] via link. Discussed with mother that patient may potentially be admitted tomorrow if abscess is found with biopsy so he should prepare a bagjust in case. Let mother know that Neida is working on insurance approval for biopsy and she will be in contact if any issue. Also reviewed other biopsy instructions- no lifting over 10 pounds for72 hours. Let mother know that prescriptions have been called into her local pharmacy for patient to begin taking. Reviewed that patient may take his prograf in the morning after his blood draw with a small sip of water. documented in this encounter Plan of Treatment Scheduled Procedures Name Priority Associated Diagnoses Date/Ti nj COLONOSCOPY Encounter for screening for colorectal cancer in high risk patient Family history of rectal cancer documented as of this encounter Results * (ABNORMAL) CBC with auto differential (02/02/2020 8:14 AM CDT) WBC 5.1 3.8 - 9.9 K/cumm [facility] Hgb 15.5 13.0 - 17.5 g/dL [facility] Hct 45.0 38.9 - 50.3 % [facility] Plt 307 150 - 400 K/cumm [facility] MPV 9.6 9.1 - 12.3 fL [facility] RBC 4.77 4.30 - 5.80 M/cumm [facility] MCV 94.3 81.3 - 96.4 fL [facility] MCH 32.5 27.1 - 33.3 pg [facility] MCHC 34.4 32.3 - 35.7 g/dL [facility] RDW CV 15.2(H) 11.1 - 14.9 % [facility] RDW SD 53.7(H) 35.7 - 48.1 fL [facility] NRBC abs 0.00 0.00 - 0.01 K/cumm [facility] Blood specimen (specimen) 02/02/2020 8:14 AM CDT 02/02/2020 8:48 AM CDT Theodore Gresham MD LAB BLOOD ORDERABLES Edite d Result - Final [facility] Department [place] [address] documented in this encounter Visit Diagnoses Diagnosis History of liver transplant (CMS/HCC) (HCC)- Primary Liver replaced by transplant Elevated liver enzymes Other nonspecific abnormal serum enzyme levels Cytomegalovirus infection, unspecified cytomegaloviral infection type (HCC) documented in this encounter Care Teams Commercial Real Estate Appraiser Relationship Specialty Start Date End Date Guero Colunga DO PCP - General Internal Medicine 03/22/19 04/18/23 Amber Montesinos, SHAILESH Photography Coordinator Transplant 11/17/19 Jil Duncan MD Consulting Physician Infectious Diseases 01/10/20 documented as of this encounter
--- OUTSIDE RECORDS SUMMARY | 2024-10-28 06:23 | XMS_ITS | Encounter Summary ---
Author Organization [facility] Healthcare Address [address] [place] [address] Care Team Providers Care Counterperson Name Role Phone Guero Colunga Primary Care Provider [phone] Amber Montesinos RN Unavailable [phone] Jil Duncan MD Unavailable [phone] Encounter Details Date Type Department Care Team (Late st Contact Info) Description 02/01/2020 Telephone [facility] Transplant Liver [address] [facility] [address] [phone] [place] [address] Amber Montesinos RN Social History Tobacco Use Types Packs/Day Years Used Date Smoking Tobacco: Never Smokeless Tobacco: Never Alcohol Use Standard Drinks/Week Comments Yes 0 (1 standard drink = 0.6 oz pur e alcohol) occassional Sex and Gender Information Value Date Recorded Sex Assigned at Not on file 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 Concern for possible abscess. Per Dr. Gresham, pt startedon 500mg flagyl TID and 500mg cipro BID x14 days. Called and spoke to patient's mother. Scripts sent to [facility]. Mother also requesting refill of Valcyte (last reviewed with Dr. Duncan, pt should continue valcyte treatment dose for now). Called Neida with [facility] to schedule biopsy. She will call coordinator back once approved. Let mother know I will call her back with details regarding the biopsy. documented in this encounter Plan of Treatment Scheduled Procedures Name Priority Associated Diagnoses Date/Ti ma COLONOSCOPY Encounter for screening for colorectal cancer in high risk patient Family history of rectal cancer documented as of this encounter Visit Diagnoses Diagnosis History of liver transplant (CMS/HCC) (HCC)- Primary Liver replaced by transplant Liver abscess Abscess of liver documented in this encounter Discontinued Medications Medication Sig Discontinue Reason Start Date End Da te valGANciclovir (VALCYTE) 450 mg tabletIndications:Other (complete free text reason below),CMV Viremia Take 2 tablets (900 mg total) by mouth 2 (two) times a day Reorder 12/28/2019 02/01/2020 documented as of this encounter Care Teams Counterperson Relationship Specialty Start Date End Date Guero Colunga DO PCP - General Internal Medicine 03/22/19 04/18/23 Amber Montesinos, SHAILESH Client Relations Representative Transplant 11/17/19 Jil Duncan MD Consulting Physician Infectious Diseases 01/10/20 documented as of this encounter
--- OUTSIDE RECORDS SUMMARY | 2024-10-28 06:23 | XMS_ITS | Encounter Summary ---
Author Organization [facility] Address [address] [place] [address] Phone Care Team Providers Care Facilities Maintenance Supervisor Name Role Phone Guero Colunga DO Primary Care Provider [phone] Amber Montesinos RN Unavailable [phone] Jil Duncan MD Unavailable [phone] Reason for Visit * Reason Onset Date Comments Lab Results 01/26/2020 Encounter Details Date Type Department Care Team (Late st Contact Info) Description 01/26/2020 Telephone [facility] Infectious Diseases [address] [place] [phone] Gracie Foster [facility] Lab Results Social History Tobacco Use Types Packs/Day Years Used Date Smoking Tobacco: Never Smokeless Tobacco: Never Alcohol Use Standard Drinks/Week Comments Yes 0 (1 standard drink = 0.6 oz pur e alcohol) occassional Sex and Gender Information Value Date Recorded Sex Assigned at Not on file 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 No / Unsure 01/17/2020 7:12 AM CDT documented as of this encounter Miscellaneous Notes * Telephone Encounter - Ny Griffin - 01/29/2020 2:11 PM CDT From: Jil Duncan [email or web address]> Sent: Wednesday, January 29, 2020 11:29 AM To: Ny Griffin <[email or web address]> Subject: RE: Ben.S I tried calling him twice to check on him. I have left a voice message. Just keep an eye out for him. I hope he does not have COVID. He is high risk group and if he has symptoms - then I would urge him to get tested at any of the drive through testing sites. * Telephone Encounter - Ny Griffin - 01/29/2020 9:12 AM CDT Images from the original note were not included. From: Jil Duncan [email or web address]> Sent: Monday, January 27, 2020 8:00 AM To: Ny Griffin <[email or web address]> Subject: Re: Fernandez Thanks Ny. Jil From: Ny Griffin <[email or web address]> Sent: Monday, January 27, 2020 12:22 AM To: Jil Duncan <[email or web address]> Subject: Fw: Fernandez Ley, see message below. I had sent you a message concerning lab results, my call had no mention of anything other then that. Ny From: Amber Vargas <[email or web address]> Sent: Sunday, January 26, 2020 5:20 PM To: Ny Griffin <[email or web address]> Subject: Fernandez Alejandra, I am not sure what number Beka Suess???s ([email or web address]) mom had but she was trying to get ahold of you based on some number that you gave her when pt was in clinic? Beka is starting to have some sinus issues and fever. I know it is the weekend and after hours so I also gave her the number to reach the web application developer fellow. Thanks Amber Vargas RN, BSN Liver Religious Activities Director [facility] Trans[facility] Address Mailstop: [phone] [address] Office: [phone] * Telephone Encounter - Ny Griffin - 01/26/2020 1:24 PM CDT Ige, Anything in particular I need to discuss with them? * Telephone Encounter - Gracie Foster CMA - 01/26/2020 11:43 AM CDT Patient mother is calling for patient lab results. documented in this encounter Plan of Treatment Scheduled Procedures Name Priority Associated Diagnoses Date/Ti me COLONOSCOPY Encounter for screening for colorectal cancer in high risk patient Family history of rectal cancer documented as of this encounter Visit Diagnoses Not on filedocumented in this encounter Care Teams Facilities Maintenance Supervisor Relationship Specialty Start Date End Date Guero Colunga DO PCP - General Internal Medicine 03/22/19 04/18/23 Amber Montesinos RN Religious Activities Director Transplant 11/17/19 Jil Duncan MD Consulting Physician Infectious Diseases 01/10/20 documented as of this encounter
--- OUTSIDE RECORDS SUMMARY | 2024-10-28 06:23 | XMS_ITS | Encounter Summary ---
Author Organization [facility] Healthcare Address [address] [place] [address] Care Team Providers Care Hand Tool Filer Name Role Phone Guero Colunga DO Primary Care Provider [phone] Amber Montesinos RN Unavailable [phone] Jil Duncan MD Unavailable [phone] Encounter Details Date Type Department Care Team (Late st Contact Info) Description 02/12/2020 Telephone [facility] Transplant Liver [address] [facility] [address] [phone] [place], [place] [id number] Amber Montesinos RN Social History Tobacco Use Types Packs/Day Years Used Date Smoking Tobacco: Never Smokeless Tobacco: Never Alcohol Use Standard Drinks/Week Comments Yes 0 (1 standard drink = 0.6 oz pur e alcohol) occassional Sex and Gender Information Value Date Recorded Sex Assigned at Not on file Legal 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 No / Unsure 01/17/2020 7:12 AM CDT documented as of this encounter Miscellaneous Notes * Telephone Encounter - Amber Vargas RN - 02/12/2020 10:44 AM CDT Placed call to [facility]- pt got labs done on 02/08. Labs being faxed over. Lab did not draw CMV PCR- test added on and confirm per garage laborerAlo. Will f/u on result documented in this encounter Plan of Treatment Scheduled Procedures Name Priority Associated Diagnoses Date/Ti me COLONOSCOPY Encounter for screening for colorectal cancer in high risk patient Family history of rectal cancer documented as of this encounter Visit Diagnoses Not on filedocumented in this encounter Care Teams Hand Tool Filer Relationship Specialty Start Date End Date Guero Colunga DO PCP - General Internal Medicine 03/22/19 04/18/23 Amber Montesinos, RN Grocery Stock Clerk Transplant 11/17/19 Jil Duncan MD Consulting Physician Infectious Diseases 01/10/20 documented as of this encounter
--- OUTSIDE RECORDS SUMMARY | 2024-10-28 06:23 | XMS_ITS | Encounter Summary ---
Author Organization [facility] Healthcare Address [address] [place] [address] Care Team Providers Care Playground Supervisor Name Role Phone Guero Colunga DO Primary Care Provider [phone] Amber Montesinos RN Unavailable [phone] Jil Duncan MD Unavailable [phone] Encounter Details Date Type Department Care Team (Late st Contact Info) Description 01/26/2020 Telephone [facility] Transplant Liver [address] [facility] [address] [phone] [place] [address] Amber Montesinos RN Social History Tobacco Use Types Packs/Day Years Used Date Smoking Tobacco: Never Smokeless Tobacco: Never Alcohol Use Standard Drinks/Week Comments Yes 0 (1 standard drink = 0.6 oz pur e alcohol) occassional Sex and Gender Information Value Date Recorded Sex Assigned at Not on file Legal 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 No / Unsure 01/17/2020 7:12 AM CDT documented as of this encounter Miscellaneous Notes * Telephone Encounter - Amber Vargas RN - 01/26/2020 5:51 PM CDT Placed call to patient's mother. Pt mother wondering if patient should still get MRCP scheduled fornext week. Discussed that at this time, [facility] is cancelling elective procedures and scans only. Let her know we would still like patient to have scan done d/t elevations in liver enzymes. Let her know that CMV PCR has started to decrease-discussed with Dr. Duncan that genotype for CMV was unable to be tested again- he would like pt to stay on treatment dose of valcyte at this time. Mother aware. Mother stating that pt has starting to develop sinus pressure and had a fever last night. Pt recently treated by Dr. Duncan for these symptoms. Reviewed last note by Dr. Duncan and let mother know that if symptoms persist, she should contact the ID department. Pt mother stating she had tried to get ahold of the RN but has not heard back. Sent email to RNNy, that family was trying to contact her. Also provided mother with the infectious disease after hours number so that she can speak to the ID fellow over the weekend who is mason helper if symptoms persist. Let mother know that we will discuss MRCP results next week. documented in this encounter Plan of Treatment Scheduled Procedures Name Priority Associated Diagnoses Date/Ti me COLONOSCOPY Encounter for screening for colorectal cancer in high risk patient Family history of rectal cancer documented as of this encounter Visit Diagnoses Not on filedocumented in this encounter Care Teams Playground Supervisor Relationship Specialty Start Date End Date Guero Colunga DO PCP - General Internal Medicine 03/22/19 04/18/23 Amber Montesinos RN [facility] Transplant 11/17/19 Jil Duncan MD Consulting Physician Infectious Diseases 01/10/20 documented as of this encounter
--- OUTSIDE RECORDS SUMMARY | 2024-10-28 06:23 | XMS_ITS | Encounter Summary ---
Author Organization [facility] Healthcare Address [address] [place] [address] Care Team Providers Care Senior Android Developer Name Role Phone Guero Colunga Primary Care Provider [phone] Amber Montesinos RN Unavailable [phone] Jil Duncan MD Unavailable [phone] Reason for Referral * Diagnostic Imaging (Routine) - Closed Specialty Diagnoses / Procedures Referred By Sascha rey Referred To Contact Radiology Diagnoses Liver lesion Procedures IR Biopsy Liver Lamar Amezquita MD Phone: tel: fax: [address] [phone] Referral ID Status Reason Start Date Expiration Date Visits Re quested Visits Authorized [id number] Closed 02/01/2020 08/12/2021 1 1 Reason for Visit * Diagnostic Imaging (Routine) - Closed Specialty Diagnoses / Procedures Referred By Sascha rey Referred To Contact Radiology Diagnoses Liver lesion Procedures IR Biopsy Liver Lamar Amezquita MD Phone: tel: fax: [address] [phone] Referral ID Status Reason Start Date Expiration Date Visits Re quested Visits Authorized [id number] Closed 02/01/2020 08/12/2021 1 1 Encounter Details Date Type Department Care Team (Late st Contact Info) Description 02/02/2020 7:59 AM CDT - 02/02/2020 1:30 PM CDT Hospital Encounter [facility] Radiology [address] [facility] [place] [address] Lamar Amezquita MD [address] [place] [address] Liver lesion Discharge Disposition: Discharge to home or self care Social History Tobacco Use Types Packs/Day Years Used Date Smoking Tobacco: Never Smokeless Tobacco: Never Alcohol Use Standard Drinks/Week Comments Yes 0 (1 standard drink = 0.6 oz pur e alcohol) occassional Sex and Gender Information Value Date Recorded Sex Assigned at Not on file 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 Gender Identity Not on file Sexual [...] Sign Reading Time Taken Comments Blood Pressure 99/59 02/02/2020 1:00 PM CDT Pulse 60 02/02/2020 1:00 PM CDT Temperature 36.4 ??C (97.5 ??F) 02/02/2020 1:00 PM CD T Respiratory Rate 17 02/02/2020 1:00 PM CDT Oxygen Saturation 96% 02/02/2020 1:00 PM CDT Inhaled Oxygen Concentration - - Weight 59 kg (130 lb) 02/02/2020 8:58 AM CDT Height 172.7 cm (5' 8 ) 02/02/2020 8:58 AM CDT Body Mass Index 19.77 02/02/2020 8:58 AM CDT documented in this encounter Discharge Diagnoses Diagnosis Other complications of liver transplant (HCC) - OTHER COMPLICATIONS OF LIVER TRANSPLANT Hepatic failure, unspecified without coma (HCC) - HEPATIC FAILURE, UNSPECIFIED WITHOUT COMA Chronic hepatitis, unspecified (CMS/HCC) (HCC) - CHRONIC HEPATITIS, UNSPECIFIED Chronic hepatitis, unspecified Surgical operation with transplant of whole organ [...] this encounter Discharge Instructions * Discharge Instructions* Jez Flanagan MD - 02/02/2020 10:03 AM CDT Interventional Radiology Outpatient Discharge Instructions/Note Diagnosis: Liver mass Procedure:Liver mass biopsy Limitations: [] No lifting greater than 5 pounds with [] Right [] Left arm for 7 days. [x] You received medication that may affect your [...] Procedure Site Care: [] teaching sheet given [x] Skin glue was used to close your incision. See teaching sheet. [x] Keep site clean and dry. [x] You may bathe or shower tomorrow. [] Change the dressing daily and if it becomes wet or dirty. [] Cover entire area with plastic and tape [...] draining. To contact an Interventional Radiologist at [facility] call [phone] Wednesday through Wednesday from 7:30am-4:30pm. At all other times call [phone] and ask that the Interventional Radiologist be paged. To contact an Interventional Radiologist at [facility] call [phone] Wednesday through Wednesday from 7:30am-3:30pm. Special instructions: [...] at Please come to: [] 3rd Floor [facility] [] 4th floor [facility] [] [facility] [] [facility] Please call [phone] to schedule a follow up appointment. You need to return in * Attachments The following attachments cannot be sent through Care Everywhere. * Percutaneous Liver Biopsy (Discharge Care) (Belarusian) * Moderate Sedation (Discharge Care) ([place]ian) * [facility] PATHWAY TO EXCELLENT CARE AFTER SURGERY documented in this encounter Medications at Time of Discharge ciprofloxacin (Cipro) 500 mg tabletIndications :abscess Take 1 tablet (500 mg total) by mouth 2 (two) times a day for 14 days 28 tablet 02/01/2020 02/17/2020 metroNIDAZOLE (Flagyl) 500 mg tabletIndications :History of liver transplant (CMS/HCC) (HCC),Liver abscess Take 1 tablet (500 mg total) by mouth 3 (three) times a day for 14 days 42 tablet 02/01/2020 02/17/2020 tacrolimus (PROGRAF) 0.5 mg capsuleIndication s:History of [...] (two) times a day 120 tablet 02/01/2020 02/17/2020 documented as of this encounter Discharge Disposition Disposition Code Departure Means Destination Discharge to home or self care documented in this encounter Nursing Notes * Joni Mantilla RN - 02/02/2020 10:22 AM CDT Tolerated procedure. Transferred back to [facility] and transported to PACU. Report received by [facility]. * Joni Mantilla RN - 02/02/2020 9:52 AM CDT Three cores obtained from needle biopsy by . Sample placed in formalin, labeled and sent to lab. * Joni Mantilla RN - 02/02/2020 9:28 AM CDT Pt transferred to xray table, positioned and placed on monitor at this time. documented in this encounter Miscellaneous Notes * Perioperative Nursing Note - Ileana Rollins RN - 02/02/2020 1:28 PM CDT IV dc with cathter intact. Dressing C/D/I. Abdomen soft. Pain is tolerable. Able to tolerate PO intake without difficulty. Spoke with patient's mother over the phone. All questions/concerns addressed. DC instructions reinforced with patient. Reports all belongings returned. Escorted to car via wheelchair for dc home with mother. * Post-Procedure Note - Jez Flanagan MD - 02/02/2020 9:59 AM CDT Radiology Brief Post Procedure Note Attending: Dr. Reyes Architecture Manager: Dr. Flanagan Sedation/Anesthesia: Min Sedation Pre-Op/Pre-Procedure Diagnosis: Liver transplant, indeterminant liver lesion Post-Op/Post-Procedure Diagnosis: Liver transplant, indeterminant liver lesion Procedure Performed: Percutaneous liver mass biopsy Procedure Findings: Solid liver mass corresponding to the lesion on prior MRI. 3 core biopsy specimens were obtained. Complications: None Estimated Blood Loss: < 30 ml Specimens: Three 2cm core biopsy specimens obtained, one sample will be sent for fungal cultures Condition: Stable Full report to follow. 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 MRI ordered due to elevated alk phos, which showed a liver lesion concerning for abscess vs mass. PMH/PSH: Past Medical History: Diagnosis Date ??? CMV (cytomegalovirus infection) (CMS/HCC) ??? Generalized enlarged lymph nodes Lymphadenopathy, generalized [...] Surgical History: Procedure Laterality Date ??? BIOPSY LYMPH NODE SUPERFICIAL N/A 05/22/2014 ??? LIVER TRANSPLANT 1998 ??? SPLENECTOMY ??? US ABDOMEN COMPLETE W LIVER DUPLEX (C) Right 10/18/2018 ??? US GUIDED BIOPSY LIVER N/A 10/18/2018 ??? US GUIDED BIOPSY LYMPH NODE SUPERFICIAL N/A 10/13/2019 ROS: Review of systems per HPI and otherwise all other systems are negative Allergies: Patient has no known allergies. Current Meds: No outpatient medications have been marked as taking for the 02/02/20 encounter (Appointment) with YOLANDA Morse. Physical exam: GEN: Resting comfortably, no acute distress Neuro: AO x 3, no focal deficits HEENT: no scleral icterus, trachea midline CV: regular rate Pulm: normal chest rise GI: soft, non-tender MSK: normal strength and range of motion Skin: warm and dry Most Recent Vitals: There were no vitals filed for this visit. Airway Assessment: normal Labs/Imaging: Chem/LFT Lab History Some values may be hidden. Unless noted otherwise, only the newest values recorded on each date aredisplayed. Labs-Chem/LFT Latest Ref Range 12/21/19 12/25/19 01/06/20 01/17/20 Sodium 135 - 145 mmol/L 137 139 143 141 Potassium Lvl 3.5 - 5.3 mmol/L 4.5 Creatinine 0.80 - 1.30 mg/dL 0.81 0.83 0.72 0.77 (A) Bilirubin, total 0.1 - 1.2 mg/dL 0.8 0.6 0.6 0.5 AST 10 - 50 Units/L 55 (A) 55 (A) 47 (A) 49 ALT 7 - 55 Units/L 57 (A) 56 (A) 67 (A) 56 (A) CrCl- Actual Body Weight (Cockcroft-Gault) 115.3 107.4 123.8 117 (A) Abnormal value Comments are available for some flowsheets but are not being displayed. Hematology Lab History Some values may be hidden. Unless noted otherwise, only the newest values recorded on each date aredisplayed. Labs - Hematology Latest Ref Range 12/25/19 01/06/20 01/17/20 02/02/20 WBC 3.8 - 9.9 K/cumm 5.9 9.3 6.1 5.1 Total Hb, POC 13.0 - 17.5 g/dL 15.6 15.4 15.5 15.5 Hct 38.9 - 50.3 % 45.1 45.2 45.7 45.0 Plt 150 - 400 K/cumm 315 246 307 Platelets 140 - 400 Thousand/uL 333 Neutrophil abs 1.8 - 6.6 K/cumm 0.8 (A) 1.8 (A) Abnormal value Comments are available for some flowsheets but are not being displayed. 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 MRI ordered due to elevated alk phos, which showed a liver lesion concerning for abscess vs mass. ASA Score: 3 NPO time: after midnight Benefits, risks and alternatives of procedure and planned sedation have been discussed with the patient and/or their auto claim representative. All questions answered and they agree to proceed. documented in this encounter Plan of Treatment Scheduled Procedures Name Priority Associated Diagnoses Date/Ti me COLONOSCOPY Encounter for screening for colorectal cancer in high risk patient Family history of rectal cancer documented as of this encounter Procedures Procedure Name Priority Date/Time Associated Diagnosis Comments BIOPSY LIVER Schedule Routine, Read Routine (OP Routine) 02/02/2020 10:06 AM CDT Liver lesion SURGICAL PATHOLOGY Routine 02/02/2020 9: 49 AM CDT CYTOMEGALOVIRUS (CMV) DNA, QUANT GEN LAB Routine 02/02/2020 8:40 AM CDT CANCER ANTIGEN 19-9 Routine 02/02/2020 8 :35 AM CDT [id number], TUMOR MARKER Routine 02/02/2020 8:35 AM CDT APTT Routine 02/02/2020 8:35 AM CDT PROTIME-INR Routine 02/02/2020 8:35 AM CDT COMPREHENSIVE METABOLIC PANEL Routine 02/02/2020 8:35 AM CDT documented in this encounter Results * IR Biopsy Liver (02/02/2020 10:06 AM CDT) Anatomical Region Laterality Modality Body N/A X-Ray Angiograph y 02/02/2020 3:19 PM CDT Impressions 02/02/2020 3:19 PM CDT Successful image-guided ??core biopsy of segment 4B liver lesion. PLAN: Follow up pathology results. ??Findings were discussed with pathology and hepatology. ??Special process will be done for fungal infection. Electronically signed by: Lamar Alan M.D. 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 ??He developed segment 4B solid lesion in the transplanted liver suspicious for neoplasm versus abscess. Biopsy versus aspiration was requested. ATTENDING PRESENCE: Lamar Alan M.D., the attending radiologist, was present from the beginning to the end of the procedure. SEDATION: Procedural sedation was administered under the attending physician's direction and continuous monitoring by a trained nurse specialist who was independent from those actually performing the procedure. ??Total monitored sedation time was 25 minutes. TECHNIQUE: The risks, benefits and alternatives were discussed and informed consent was obtained. Prior to beginning the procedure, [place] Protocol was performed to confirm the patient's identity and the planned procedure. ??For procedures that utilize fluoroscopy, the fluoroscopy time has been recorded in the electronic medical record. Maximum sterile barriers including cap, mask, hand hygiene, sterile gloves, sterile gown, large sterile drape and 2% chlorhexidine for cutaneous antisepsis were used. The patient was placed in a supine position. Initial ultrasonographic images were obtained for localization and saved to PACS. An appropriate biopsy site was selected and marked on the skin. The biopsy site was prepped and draped in the usual sterile fashion. The overlying skin and soft tissues were anesthetized with less than 5 mL of 1% lidocaine. Under ultrasonographic guidance, a 17-gauge coaxial needle biopsy system was utilized. The outer needle was advanced adjacent to the segment 4 b lesion under intermittent image guidance. After positioning the outer needle adjacent to the target, the true core needle was advanced into the target. Under the sonographic guidance, an 18-gauge needle was advanced into the lesion Next, a 18-gauge biopsy device was advanced into the target under intermittent image guidance and core biopsy was performed. A total of 3 fine biopsies were obtained from the intended target. The biopsy samples were placed in formalin. Biopsy tract embolization was performed with clotted blood or gelfoam. ??Hemostasis was achieved with manual compression. Needle(s) utilized: Core Biopsy Needle: 3 The skin was then cleansed and a sterile dressing was applied. ESTIMATED BLOOD LOSS: Minimal. CONDITION: Stable DISCHARGED TO: Recovery room FINDINGS: The initial localization images demonstrated 2.7 cm hypoechoic solid lesion at the segment IVb of the liver. Images obtained during the core biopsy procedure demonstrate positioning of the biopsy needle through the target. 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 He developed segment 4B solid lesion in the transplanted liver suspicious for neoplasm versus abscess. Biopsy versus aspiration was requested. ATTENDING PRESENCE: Lamar Alan M.D., the attending radiologist, was present from the beginning to the end of the procedure. SEDATION: Procedural sedation was administered under the attending physician's direction and continuous monitoring by a trained nurse specialist who was independent from those actually performing the procedure. Total monitored sedation time was 25 minutes. TECHNIQUE: The risks, benefits and alternatives were discussed and informed consent was obtained. Prior to beginning the procedure, [place] Protocol was performed to confirm the patient's identity and the planned procedure. For procedures that utilize fluoroscopy, the fluoroscopy time has been recorded in the electronic medical record. Maximum sterile barriers including cap, mask, hand hygiene, sterile gloves, sterile gown, large sterile drape and 2% chlorhexidine for cutaneous antisepsis were used. The patient was placed in a supine position. Initial ultrasonographic images were obtained for localization and saved to PACS. An appropriate biopsy site was selected and marked on the skin. The biopsy site was prepped and draped in the usual sterile fashion. The overlying skin and soft tissues were anesthetized with less than 5 mL of 1% lidocaine. Under ultrasonographic guidance, a 17-gauge coaxial needle biopsy system was utilized. The outer needle was advanced adjacent to the segment 4 b lesion under intermittent image guidance. After positioning the outer needle adjacent to the target, the true core needle was advanced into the target. Under the sonographic guidance, an 18-gauge needle was advanced into the lesion Next, a 18-gauge biopsy device was advanced into the target under intermittent image guidance and core biopsy was performed. A total of 3 fine biopsies were obtained from the intended target. The biopsy samples were placed in formalin. Biopsy tract embolization was performed with clotted blood or gelfoam. Hemostasis was achieved with manual compression. Needle(s) utilized: Core Biopsy Needle: 3 The skin was then cleansed and a sterile dressing was applied. ESTIMATED BLOOD LOSS: Minimal. CONDITION: Stable DISCHARGED TO: Recovery room FINDINGS: The initial localization images demonstrated 2.7 cm hypoechoic solid lesion at the segment IVb of the liver. Images obtained during the core biopsy procedure demonstrate positioning of the biopsy needle through the target. Post biopsy images demonstrate no significant postprocedure complication such as hemorrhage IMPRESSION: Successful image-guided core biopsy of segment 4B liver lesion. PLAN: Follow up pathology results. Findings were discussed with pathology and hepatology. Special process will be done for fungal infection. Electronically signed by: Lamar Alan M.D. us Lamar PHANG CARLTON DUGGAN Final Result * Surgical pathology (02/02/2020 9:49 AM CDT) 02/02/2020 9:49 AM CDT 02/02/2020 10:24 AM CDT Narrative 02/07/2020 5:29 AM CDT EPIC results best viewed via link to PDF [facility] Yulisa [facility] Laboratory of Surgical Pathology [facility], [place] [address] SURGICAL PATHOLOGY REPORT FINAL WITH ADDENDUM Patient Name: ?? ADI NICHOLS Gender: ??M : ??1995 (Age: 25) Address: ??[address] [place], [place] ??[address] Hospital #: ??[id number] Taken:02/02/2020 Received:02/02/2020 Reported: 02/07/2020 Patient Type: [facility] SDS ?? Service: Radiology Location: [facility] Physician(s): ??Stephon Ospina M.D. Diagnosis: Liver, needle-core biopsy: - ?Necrosis, surrounded by organizational changes and chronic inflammation, involving hepatic parenchyma - ? Negative for fungal organisms (GMS and PAS stains) and acid fast bacilli (AFB stain) - ? Negative for involvement by atypical lymphoid proliferation (see comment), or any other malignancy dc/02/07/2020 05:29 By this signature, I attest that the above diagnosis is based upon my personal examination of the slides(and/or other material indicated in the diagnosis). Marisa Torres M.D. Report Electronically Reviewed and Signed Out By ??Marisa Torres M.D. 02/07/2020 05:29:56 Microscopic Description and Comment: Microscopic examination substantiates the above cited diagnosis. AFB, GMS, and PAS stains were performed on both tissue blocks. A series of immunohistochemical stains (with appropriate levels of reactive controls) is performed on the core biopsy to assess the infiltrate (in appropriate tissue context). The infiltrate is composed of a mixed population of T- and B- lymphocytes as demonstrated by CD3 and CD20/PAX5. There is focal expression for BCL-2 and BCL- 6. ??CD10 primarily highlights the bile ducts. ??The Ki-67 proliferation index is increased at approximately 30-40%. ??No EBV RNA is detected by JAKOB RASHAUN. The opinion and work up to exclude a hematologic disease process was based on consultation with Dr. Boston Elias. Additionally, the case has been shared in intradepartmental consultation with Dr. Parish Kingsley. Overall, it is favored to be an inflammatory process. There is no neutrophilic abscess, and organisms could not be demonstrated by special stains. However, this does not completely rule out an infective process. ? 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 ??Operative procedure: Liver biopsy. Specimen(s) Received: A: Liver, needle biopsy / wedge Gross Description: Received in formalin labeled with the patient's name and liver biopsy are three cores of preston to brown mottled tissue measuring 1.8 to 2 cm in length by 0.1 cm in diameter. ??Labeled A1/A2. ??Jar 0. mab/02/02/2020 13:47 PA(s): Tosha Urban MS, PA ([facility]) By this signature, I attest that the above diagnosis is based upon my personal examination of the slides(and/or other material). Addenda/Procedures Addendum Ordered: 02/08/2020 Status: Signed Out Addendum Complete: 02/08/2020 By: Marisa Torres M.D. Addendum Signed Out: 02/08/2020 ?? Addendum Comment CMV immunostains were performed on both blocks A1 and A2 and are negative. By this signature, I attest that the above diagnosis is based upon my personal examination of the slides(and/or other material indicated in the diagnosis). ?? Marisa Torres M.D. ??Report Electronically Reviewed and Signed Out By ??Marisa Torres M.D. ??02/08/2020 08:33:58 ? The performance characteristics of some immunohistochemical stains, fluorescence in-situ hybridization tests and immunophenotyping by flow cytometry cited in this report (if any) were determined by the Surgical Pathology Department at [facility] as part of an ongoing director of quality program and in compliance with federally mandated [...] determined by the Surgical Pathology Department of [facility]. ??It has not been cleared or approved by the U. S. Food and Drug Administration. IMAGES AND SCANNED DOCUMENTS, IF INCLUDED, ONLY VIEWABLE IN PDF VERSION OF REPORT Jez Flanagan MD LAB PATHOLOGY ORDERABLES Final R esult * (ABNORMAL) Cytomegalovirus (CMV) DNA PCR, quantitative Blood (02/02/2020 8:40 AM CDT) CMV DNA Detected( A) [facility] Comment: Interpretive Data: The quantifiable range of this assay is 137 IUnits/mL to 9,100,000 IUnits/mL (2.14 log IUnits/mL to 6.96 log IUnits/mL). Testing was performed by the [employer] AmpliPrep/NIA TaqMan CMV Test ([employer] Testing performed at [facility] Current interpretive data was last revised on 17. CMV DNA IU/mL 513 IUnits/mL [facility] CMV DNA log IU/mL 2.71 log IUnits/mL [facility] Blood specimen (specimen) 02/02/2020 8:40 AM CDT 02/02/2020 12:43 PM CDT Lamar Alan MD LAB MICROBIOLOG Y - GENERAL ORDERABLES Final Result [facility] Department [place] [address] * Cancer antigen 19-9 (02/02/2020 8:35 AM CDT) CA 19-9 ag 15.8 <=35.0 units/mL [facility] Blood specimen (specimen) 02/02/2020 8:35 AM CDT 02/02/2020 8:48 AM CDT Lamar Alan MD LAB BLOOD ORDER DARCY Final Result Performing Organization Address City/[facility] Co de Phone Number [facility] Department [place] [address] * [id number], Tumor Marker (02/02/2020 8:35 AM CDT) alpha Fetoprotein 2.4 <=8.3 ng/mL [facility] Blood specimen (specimen) 02/02/2020 8:35 AM CDT 02/02/2020 8:48 AM CDT Result [facility] Lamar Alan MD LAB BLOOD ORDER DARCY Final Result Performing Organization Address [facility] de Phone Number [facility] Department [place] [address] * aPTT (02/02/2020 8:35 AM CDT) aPTT 30 25 - 37 sec [facility] Comment: Interpretive data Heparin therapeutic range: 60-90 seconds Range based on correlation with therapeutic heparin activity range of 0.3-0.7 units/ml. Current interpretive data was last revised on 2019. Blood specimen (specimen) 02/02/2020 8:35 AM CDT 02/02/2020 8:49 AM CDT Lamar Alan MD LAB BLOOD ORDER DARCY Final Result Performing Organization Address City/[facility] Co de Phone Number [facility] Department [place] [address] * Protime-INR (02/02/2020 8:35 AM CDT) Pathologist [facility] PT 10.5 8.6 - 13.0 sec [facility] INR 1.0 0.8 - 1.2 [facility] Comment: Interpretive data Oral anticoagulant therapeutic ranges: Venous thromboembolism prophylaxis or treatment: 2.0-3.0 CARDIOLOGY Standard range: 2.0-3.0 High-intensity range: 2.5-3.5 Refer to indication-specific guidelines for appropriate target ranges for prosthetic heart valve replacement. Current interpretive data was last revised on 2019. Blood specimen (specimen) 02/02/2020 8:35 AM CDT 02/02/2020 8:49 AM CDT Lamar Alan MD LAB BLOOD ORDER DARCY Final Result [facility] Department [place] [address] * (ABNORMAL) Comprehensive metabolic panel (02/02/2020 8:35 AM CDT) [facility] Sodium 143 135 - 145 mmol/L [facility] Potassium, pl 4.6 3.3 - 4.9 mmol/L [facility] Chloride 110 97 - 110 mmol/L [facility] CO2 24 22 - 32 mmol/L [facility] Anion gap 9 2 - 15 mmol/L [facility] BUN 9 8 - 25 mg/dL [facility] Creatinine 0.70(L) 0.80 - 1.30 mg/dL [facility] Glucose 95 70 - 199 mg/dL [facility] 2017. Calcium 8.8 8.5 - 10.3 mg/dL [facility] Bilirubin, total 0.4 0.1 - 1.2 mg/dL [facility] Protein, pl 6.0(L) 6.5 - 8.5 g/dL [facility] Albumin 4.0 3.5 - 5.0 g/dL [facility] Alk phos 489(H) 40 - 130 Units/L [facility] ALT 75(H) 7 - 55 Units/L [facility] AST 69(H) 10 - 50 Units/L [facility] Blood specimen (specimen) 02/02/2020 8:35 AM CDT 02/02/2020 8:48 AM CDT us Lamar Alan MD LAB BLOOD ORDER DARCY Final Result [facility] Department [place] [address] documented in this encounter Visit Diagnoses Diagnosis Liver lesion Other specified disorders of liver documented in this encounter Administered Medications Inactive Administered Medications - up to 3 most recent administrations Medication Order MAR Action Action Date Dose Rate Site ceFAZolin (ANCEF) 1 gram/10 mL in sterile water (premix) Administer over 3 Minutes, Code/trauma/sedation continuous med, Starting on Wed02/02/20 at 0956 New Bag 02/02/2020 9:56 AM CDT 2,000 mg 60 mL/hr fentaNYL (SUBLIMAZE) preservative free injection intravenous, Code/trauma/sedation medication, Starting on Wed02/02/20 at 0933 Given 02/02/2020 9:48 AM CDT 50 mcg Given 02/02/2020 9:33 AM CDT 50 mcg lidocaine (XYLOCAINE) 10 mg/mL (1 %) injection Code/trauma/sedation medication, Starting on Wed02/02/20 at 0940, Intra-Procedure (IR), Indications: Administration of Local AnesthesiaIndications:Administration of Local Anesthesia Given 02/02/2020 9:40 AM CDT 10 mL midazolam (VERSED) preservative free injection intravenous, Administer over 2 Minutes, Code/trauma/sedation medication, Starting on Wed02/02/20 at 0933, Intra-Procedure (IR) Given 02/02/2020 9:48 AM CDT 1 m g Given 02/02/2020 9:33 AM CDT 1 mg ondansetron (ZOFRAN) injection 4 mg 4 mg, intravenous, Administer over 2 Minutes, Every 6 hours PRN, nausea, vomiting, if not tolerating PO, Starting on Wed02/02/20 at 1019, Indications: nausea and vomitingIndications:nausea and vomiting ondansetron ODT (ZOFRAN-ODT) disintegrating tablet 4 mg 4 mg, oral, Every 6 hours PRN, nausea, vomiting, Starting on Wed02/02/20 at 1019, Phase I & Post-op Floor, Indications: nausea and vomitingIndications:nausea and vomiting oxyCODONE-acetaminophen (PERCOCET) 5-325 mg per tablet 1 tablet 1 tablet, oral, Every 4 hours PRN, 1st line for pain, Starting on Wed02/02/20 at 1019, Phase I & Post-op Floor, When able to tolerate PO. May repeat in 1 hour if pain is uncontrolled or increasing. Max 2 doses within 1 dosing interval., Indications: PainIndications:Pain sodium chloride 0.9% flush 0.5-20 mL 0.5-20 mL, intra-catheter, Every 8 hours scheduled, First dose on Wed02/02/20 at 0930, Pre-Procedure (IR), Flush volume based on line type and size. sodium chloride 0.9% flush 0.5-20 mL 0.5-20 mL, intra-catheter, As needed, line care, Starting on Wed02/02/20 at 0858, Pre-Procedure (IR), Flush volume based on line type and size. Flush before and after each use. Given 02/02/2020 9:10 AM CDT 10 mL sodium chloride 0.9% flush 10-20 mL 10-20 mL, intra-catheter, As needed, line care, with each use, Starting on Wed02/02/20 at 0858, Pre-Procedure (IR), Flush volume based on line type, size, and protocol. sodium chloride 0.9% flush 5-10 mL 5-10 mL, intra-catheter, Every 12 hours scheduled, First dose on Wed02/02/20 at 0930, Pre-Procedure (IR), Flush volume based on line type, size, and protocol. sodium chloride 0.9% infusion 30 mL/hr, intravenous, Continuous, Starting on Wed02/02/20 at 0930, Pre-Procedure (IR) New Bag 02/02/2020 9:09 AM CDT 30 mL/hr 30 mL/hr documented in this encounter Active and Recently Administered Medications Times are shown in CDT. Scheduled Medication Order 2020 02/01/2020 02/02/2020 heparin 100 unit/mL injection 500 Units 500 Units (5 mL), intra-catheter, Once, On Wed02/02/20 at 1100, For 1 dose, Recovery (IR), For port decannulation., Indications: Maintain Patency of Indwelling Vascular Catheter 1100 (Due) sodium chloride 0.9% flush 0.5-20 mL 0.5-20 mL, intra-catheter, Every 8 hours scheduled, First dose on Wed02/02/20 at 0930, Pre-Procedure (IR), Flush volume based on line type and size. 0930 (Due) sodium chloride 0.9% flush 10 mL 10 mL, intra-catheter, Once, On Wed02/02/20 at 1100, For 1 dose, Recovery (IR), Prior to heparin to decannulate port. 1100 (Due) sodium chloride 0.9% flush 5-10 mL 5-10 mL, intra-catheter, Every 12 hours scheduled, First dose on Wed02/02/20 at 0930, Pre-Procedure (IR), Flush volume based on line type, size, and protocol. 0930 (Due) Continuous Medication Order 2020 02/01/2020 02/02/2020 sodium chloride 0.9% infusion 30 mL/hr, intravenous, Continuous, Starting on Wed02/02/20 at 0930, Pre-Procedure (IR) 0909 (New Bag - Prov ider: Alexsandra Sheth RN) PRN Medication Order 2020 02/01/2020 02/02/2020 ceFAZolin (ANCEF) 1 gram/10 mL in sterile water (premix) (COMPLETED) Administer over 3 Minutes, Code/trauma/sedation continuous med, Starting on Wed02/02/20 at 0956 0956 (New Bag - Prov ider: Joni Mnatilla RN) fentaNYL (SUBLIMAZE) preservative free injection (COMPLETED) intravenous, Code/trauma/sedation medication, Starting on Wed02/02/20 at 0933 0933 (Given - Provid er: Joni Mantilla RN)0948 (Given - Provider: Joni Mantilla RN) lidocaine (XYLOCAINE) 10 mg/mL (1 %) injection (COMPLETED) Code/trauma/sedation medication, Starting on Wed02/02/20 at 0940, Intra-Procedure (IR), Indications: Administration of Local Anesthesia 0940 (Given - Provid er: Jez Flanagan MD) midazolam (VERSED) preservative free injection (COMPLETED) intravenous, Administer over 2 Minutes, Code/trauma/sedation medication, Starting on Wed02/02/20 at 0933, Intra-Procedure (IR) 0933 (Given - Provid er: Joni Mantilla RN)0948 (Given - Provider: Joni Mantilla RN) ondansetron (ZOFRAN) injection 4 mg(Linked Group 1) 4 mg, intravenous, Administer over 2 Minutes, Every 6 hours PRN, nausea, vomiting, if not tolerating PO, Starting on Wed02/02/20 at 1019, Indications: nausea and vomiting ondansetron ODT (ZOFRAN-ODT) disintegrating tablet 4 mg(Linked Group 1) 4 mg, oral, Every 6 hours PRN, nausea, vomiting, Starting on Wed02/02/20 at 1019, Phase I & Post-op Floor, Indications: nausea and vomiting oxyCODONE-acetaminophen (PERCOCET) 5-325 mg per tablet 1 tablet 1 tablet, oral, Every 4 hours PRN, 1st line for pain, Starting on Wed02/02/20 at 1019, Phase I & Post-op Floor, When able to tolerate PO. May repeat in 1 hour if pain is uncontrolled or increasing. Max 2 doses within 1 dosing interval., Indications: Pain sodium chloride 0.9% flush 0.5-20 mL 0.5-20 mL, intra-catheter, As needed, line care, Starting on Wed02/02/20 at 0858, Pre-Procedure (IR), Flush volume based on line type and size. Flush before and after each use. 0910 (Given - Provid er: Alexsandra Sheth RN) sodium chloride 0.9% flush 10-20 mL 10-20 mL, intra-catheter, As needed, line care, with each use, Starting on Wed02/02/20 at 0858, Pre-Procedure (IR), Flush volume based on line type, size, and protocol. Linked Groups Order Group 1: ondansetron ODT (ZOFRAN-ODT) disintegrating tablet 4 mgJump to med 4 mg, oral, Every 6 hours PRN, nausea, vomiting, Starting on Wed02/02/20 at 1019, Phase I & Post-op Floor, Indications: nausea and vomiting Or ondansetron (ZOFRAN) injection 4 mgJump to med 4 mg, intravenous, Administer over 2 Minutes, Every 6 hours PRN, nausea, vomiting, if not tolerating PO, Starting on Wed02/02/20 at 1019, Indications: nausea and vomiting documented in this encounter Orders Medications Ordered That John ht Not Have Been Administered Count Last Ordered Date First Ordered Date heparin 100 unit/mL injection 500 Units 1 0 02/02/2020 ondansetron (ZOFRAN) injection 4 mg 1 02/01 ondansetron ODT (ZOFRAN-ODT) disintegrating tablet 4 mg 1 02/02/2020 oxyCODONE-acetaminophen (PER COCET) 5-325 mg per tablet 1 tablet 1 02/02/2020 sodium chloride 0.9% flush 0.5-20 mL 1 0 12/2019 sodium chloride 0.9% flush 10 mL 1 02/02/20 20 sodium chloride 0.9% flush 10-20 mL 1 02/01 sodium chloride 0.9% flush 5-10 mL 1 2019 documented in this encounter Care Teams Senior Android Developer Relationship Specialty Start Date End Date Guero Colunga DO PCP - General Internal Medicine 03/22/19 04/18/23 Amber Montesinos RN Side Gluer Transplant 11/17/19 Jil Duncan MD Consulting Physician Infectious Diseases 01/10/20 documented as of this encounter
--- OUTSIDE RECORDS SUMMARY | 2024-10-28 06:23 | XMS_ITS | Encounter Summary ---
Author Organization [facility] Healthcare Address [address] [place] [address] Care Team Providers Care Exploration Geologist Name Role Phone Guero Colunga Primary Care Provider [phone] Amber Montesinos RN Unavailable [phone] Jil Duncan MD Unavailable [phone] Encounter Details Date Type Department Care Team (Late st Contact Info) Description 01/09/[address] 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); History of liver transplant (CMS/HCC) Social History Tobacco Use Types Packs/Day Years Used Date Smoking Tobacco: Never Smokeless Tobacco: Never Alcohol Use Standard Drinks/Week Comments Yes 0 (1 standard drink = 0.6 oz pur e alcohol) occassional Sex and Gender Information Value Date Recorded Sex Assigned at Not on file Legal 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 Gender Identity Not on file Sexual Orientation Straight 08/22/2021 9: 23 AM CDT documented as of this encounter Plan of Treatment Scheduled Procedures Name Priority Associated Diagnoses Date/Ti me COLONOSCOPY Encounter for screening for colorectal cancer in high risk patient Family history of rectal cancer documented as of this encounter Visit Diagnoses Diagnosis Cytomegalovirus infection, unspecified cytomegaloviral infection type (HCC)- Primary History of liver transplant (CMS/HCC) (HCC) Liver replaced by transplant documented in this encounter Care Teams Exploration Geologist Relationship Specialty Start Date End Date Guero Colunga DO PCP - General Internal Medicine 03/22/19 04/18/23 Amber Montesinos RN Gyro Compass Tester Transplant 11/17/19 Jil Duncan MD Consulting Physician Infectious Diseases 01/10/20 documented as of this encounter
--- OUTSIDE RECORDS SUMMARY | 2024-10-28 06:23 | XMS_ITS | Encounter Summary ---
Author Organization [facility] Healthcare Address [address] [place] [address] Care Team Providers Care Insurance Loss Assessor Name Role Phone Gene Colungae Primary Care Provider [phone] Amber Montesinos RN Unavailable [phone] Encounter Details Date Type Department Care Team (Late st Contact Info) Description 12/28/2019 Orders Only [facility] Health Information Management [address] [place] [address] Scanning, Provider Social History Tobacco Use Types Packs/Day Years Used Date Smoking Tobacco: Never Smokeless Tobacco: Never Alcohol Use Standard Drinks/Week Comments Yes 0 (1 standard drink = 0.6 oz pur e alcohol) occassional Sex and Gender Information Value Date Recorded Sex Assigned at Not on file Legal Sex Male 6:28 AM DIAMOND SIZER Gender Identity Not on file Sexual Orientation Straight 08/22/2021 9: 23 AM CDT documented as of this encounter Plan of Treatment Scheduled Procedures Name Priority Associated Diagnoses Date/Ti me COLONOSCOPY Encounter for screening for colorectal cancer in high risk patient Family history of rectal cancer documented as of this encounter Procedures Procedure Name Priority Date/Time Associated Diagnosis Comments SCAN - LABS 12/28/2019 10:59 AM DIAMOND SIZER documented in this encounter Results * SCAN - LABS (12/28/2019 10:59 AM DIAMOND SIZER) us Provider Scanning Final Result documented in this encounter Visit Diagnoses Not on filedocumented in this encounter Additional Health Concerns Infection Onset Date Last Indicated Resolved Time Rhino/Enterovirus 12/21/2019 12/21/2019 12/28/2019 3:05 AM DIAMOND SIZER documented as of this encounter Care Teams Insurance Loss Assessor Relationship Specialty Start Date End Date Guero Colunga DO PCP - General Internal Medicine 03/22/19 04/18/23 Amber Montesinos, RN Secretary Transplant 11/17/19 documented as of this encounter
--- OUTSIDE RECORDS SUMMARY | 2024-10-28 06:23 | XMS_ITS | Encounter Summary ---
Author Organization [facility] Address [address] [place] [address] Phone Care Team Providers Care Stone And Concrete Washer Name Role Phone Guero Colunga DO Primary Care Provider [phone] Amber Montesinos RN Unavailable [phone] Jil Duncan MD Unavailable [phone] Reason for Visit * Reason Onset Date Comments CMV PCR 3.16 from 01/0501/10/2020 Encounter Details Date Type Department Care Team (Late st Contact Info) Description 01/10/2020 Telephone [facility] Infectious Diseases [address] [place] [id number] Brooklynn Malcolm RN CMV PCR 3.16 from 01/05 Social History Tobacco Use Types Packs/Day Years Used Date Smoking Tobacco: Never Smokeless Tobacco: Never Alcohol Use Standard Drinks/Week Comments Yes 0 (1 standard drink = 0.6 oz pur e alcohol) occassional Sex and Gender Information Value Date Recorded Sex Assigned at Not on file 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 Gender Identity Not on file Sexual Orientation Straight 08/22/2021 9: 23 AM CDT documented as of this encounter Miscellaneous Notes * Telephone Encounter - Brooklynn Malcolm RN - 01/13/2020 9:33 AM CDT From: Jil Duncan <[email or web address]> Sent: Friday, January 10, 2020 3:38 PM To: Amber Vargas <[email or web address]> Cc: Brooklynn Malcolm <[email or web address]>; Ny Griffin <[email or web address]> Subject: RE: Junior Clark- Sorry for the delay. I have been on service and it has been busy. I spoke with Beka just now. He reports that he feels great ( he works at a [employer]).I also checked that he has been compliant on the Valgancyclovir. I am not sure if it???s the CMV that is causing the liver injury pattern ( predominantly elevated ALP ). With the enlarged lymph nodes from the imaging in October, I would worry about a granulomatous disease or PTLD. I would not recommend IV ganciclovir or Foscarnet immediately . With him [facility] - we can wait on this. His discharge summary from 12/21 notes that a histoplasma serology was send - but I do not see it. 1) I would get S. histoplasma serologies and urine histo antigen , S crypto antigen and TSPOT . 2) We could see if [facility] can run a CMV resistance panel from the sample on 01/05 for reassurance. Let me know if you have questions please or if you need help ordering these tests - Ny will be able to help. He can get this done when he is here to meet Dr. Gillespie next week. Thanks Ige * Telephone Encounter - Brooklynn Malcolm RN - 01/10/2020 2:[address] Nataly Clark with [facility] has called with pts most recent CMV PCR dated 01/05. The result is 3.6. They would like to know next steps and treatment plan. Amber is cc'd on this note. documented in this encounter Plan of Treatment Scheduled Procedures Name Priority Associated Diagnoses Date/Ti pr COLONOSCOPY Encounter for screening for colorectal cancer in high risk patient Family history of rectal cancer documented as of this encounter Visit Diagnoses Not on filedocumented in this encounter Care Teams Stone And Concrete Washer Relationship Specialty Start Date End Date Guero Colunga DO PCP - General Internal Medicine 03/22/19 04/18/23 Amber Montesinos RN Wig Dresser Transplant 11/17/19 Jil Duncan MD Consulting Physician Infectious Diseases 01/10/20 documented as of this encounter
--- OUTSIDE RECORDS SUMMARY | 2024-10-28 06:23 | XMS_ITS | Encounter Summary ---
Author Organization [facility] Address [address] [place] [address] Phone Care Team Providers Care Management Aide Name Role Phone Guero Colunga DO Primary Care Provider [phone] Amber Montesinos RN Unavailable [phone] Jil Duncan MD Unavailable [phone] Encounter Details Date Type Department Care Team (Late st Contact Info) Description 02/06/2020 Telephone [facility] Oncology [facility] 7[address] [place] [address] [place] [address] Samreen Greene RN Social History Tobacco Use Types Packs/Day Years Used Date Smoking Tobacco: Never Smokeless Tobacco: Never Alcohol Use Standard Drinks/Week Comments Yes 0 (1 standard drink = 0.6 oz pur e alcohol) occassional Sex and Gender Information Value Date Recorded Sex Assigned at Not on file 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 No / Unsure 01/17/2020 7:12 AM CDT documented as of this encounter Miscellaneous Notes * Telephone Encounter - Samreen Greene RN - 02/06/2020 5:10 PM CDT Called to see how Beka is feeling since his recent Liver biopsy. Brooklynn states he is overall feeling well. He started having sinus symptoms with a cough about one week ago. He didn't have any fevers,chills, and did not have near as bad of a cough as he has in the past (typically leading to pneumonia). Brooklynn states if it wasn't for his elevated liver enzymes they wouldn't have thought things had turned south again. His weight has been stable and he denies any diarrhea with his new medications. He noticed one lymph node near the right ear that is slightly swollen, but has not felt any other swollen lymph nodes. We will keep him updated once the pathology results are back. They know to call with any concerns in the interim. documented in this encounter Plan of Treatment Scheduled Procedures Name Priority Associated Diagnoses Date/Ti me COLONOSCOPY Encounter for screening for colorectal cancer in high risk patient Family history of rectal cancer documented as of this encounter Visit Diagnoses Not on filedocumented in this encounter Care Teams Management Aide Relationship Specialty Start Date End Date Guero Colunga DO PCP - General Internal Medicine 03/22/19 04/18/23 Amber Montesinos RN Head Of Transport Logistics Transplant 11/17/19 Jil Duncan MD Consulting Physician Infectious Diseases 01/10/20 documented as of this encounter
--- OUTSIDE RECORDS SUMMARY | 2024-10-28 06:24 | XMS_ITS | Encounter Summary ---
Author Organization [facility] Address [address] [place] [address] Phone Care Team Providers Care Notched Blade Loader Name Role Phone Guero Colunga DO Primary Care Provider [phone] Amber Montesinos RN Unavailable [phone] Encounter Details Date Type Department Care Team (Late st Contact Info) Description 12/25/2019 Orders Only [facility] Infectious Diseases [address] [place] [address] [address] [place] [address] Jil Duncan MD [address] [facility] [address] [place] [address] Fever, unspecified fever cause (Primary Dx) Social History Tobacco Use Types Packs/Day Years Used Date Smoking Tobacco: Never Smokeless Tobacco: Never Alcohol Use Standard Drinks/Week Comments Yes 0 (1 standard drink = 0.6 oz pur e alcohol) occassional Sex and Gender Information Value Date Recorded Sex Assigned at Not on file 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 Gender Identity Not on file Sexual Orientation Straight 08/22/2021 9: 23 AM CDT documented as of this encounter Plan of Treatment Scheduled Procedures Name Priority Associated Diagnoses Date/Ti me COLONOSCOPY Encounter for screening for colorectal cancer in high risk patient Family history of rectal cancer documented as of this encounter Visit Diagnoses Diagnosis Fever, unspecified fever cause- Primary documented in this encounter Additional Health Concerns Infection Onset Date Last Indicated Resolved Time Rhino/Enterovirus 12/21/2019 12/21/2019 12/28/2019 3:05 AM SUPERVISOR ASBESTOS TEXTILE documented as of this encounter Care Teams Notched Blade Loader Relationship Specialty Start Date End Date Guero Colunga DO PCP - General Internal Medicine 03/22/19 04/18/23 Amber Montesinos, RN Farrowing Worker Transplant 11/17/19 documented as of this encounter
--- OUTSIDE RECORDS SUMMARY | 2024-10-28 06:24 | XMS_ITS | Encounter Summary ---
Author Organization [facility] Healthcare Address [address] [place] [address] Care Team Providers Care Process Controls Technician Name Role Phone Guero Colunga DO Primary Care Provider [phone] Amber Montesinos RN Unavailable [phone] Encounter Details Date Type Department Care Team (Late st Contact Info) Description 12/20/2019 Telephone [facility] Transplant Liver [address] [facility] [phone] [place] [address] Amber Montesinos, SHAILESH Social History Tobacco Use Types Packs/Day Years Used Date Smoking Tobacco: Never Smokeless Tobacco: Never Sex and Gender Information Value Date Recorded Sex Assigned at Not on file Legal 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 Lemus. Per , I have sent an email/[employer] message to Dr. Duncan, infectious disease MD for recommendations on further treatment of patient. We have been checking weekly CMV PCR's and the IU/mL have been steadily increasing, despite treatment. I have counseled patient on making sure he is not missing doses, taking the medication with food, etc. He reports no missed doses. The patient last week had reported that he was feeling better- had more energy, symptoms were resolving. However, I spoke to him this morning and he states that yesterday he developed a sore throat and today he is achy/tired, has developed a cough, and feels blah . He does not have a fever. He wasgoing to get tested for the flu/strep throat; his mother is also worried about bronchitis. Denies di arrhea at this time. Let patient know to please call office if symptoms worsen and that I will be in touch after MD replies. TEGIC ACCOUNT MANAGER documented in this encounter Plan of Treatment Scheduled Procedures Name Priority Associated Diagnoses Date/Ti me COLONOSCOPY Encounter for screening for colorectal cancer in high risk patient Family history of rectal cancer documented as of this encounter Visit Diagnoses Not on filedocumented in this encounter Care Teams Process Controls Technician Relationship Specialty Start Date End Date Guero Colunga DO PCP - General Internal Medicine 03/22/19 04/18/23 Amber Montesinos, RN Water Tender Transplant 11/17/19 documented as of this encounter
--- OUTSIDE RECORDS SUMMARY | 2024-10-28 06:24 | XMS_ITS | Encounter Summary ---
Author Organization [facility] Healthcare Address [address] [place] [address] Care Team Providers Care Internet Developer Name Role Phone Guero Colunga DO Primary Care Provider [phone] Amber Montesinos RN Unavailable [phone] Encounter Details Date Type Department Care Team (Late st Contact Info) Description 12/25/2019 Telephone [facility] Transplant Liver [address] [facility] [phone] [place] [address] Amber Montesinos, SHAILESH Social History Tobacco Use Types Packs/Day Years Used Date Smoking Tobacco: Never Smokeless Tobacco: Never Alcohol Use Standard Drinks/Week Comments Yes 0 (1 standard drink = 0.6 oz pur e alcohol) occassional Sex and Gender Information Value Date Recorded Sex Assigned at Not on file Legal Sex Male 6:28 AM GIS ADMINISTRATOR Gender Identity Not on file Sexual Orientation Straight 08/22/2021 9: 23 AM CDT documented as of this encounter Miscellaneous Notes * Telephone Encounter - Amber Vargas RN - 12/25/2019 10:17 AM GIS ADMINISTRATOR [facility] check on CMV resistance panel test. Per [facility] rep, the outside facility received the test on 12/17. They only run test on Mondays or Wednesdays and the turn around time is 4-7 days. They expect the result to come by this Wednesday, 12/27. ADMINISTRATOR documented in this encounter Plan of Treatment Scheduled Procedures Name Priority Associated Diagnoses Date/Ti me COLONOSCOPY Encounter for screening for colorectal cancer in high risk patient Family history of rectal cancer documented as of this encounter Visit Diagnoses Not on filedocumented in this encounter Additional Health Concerns Infection Onset Date Last Indicated Resolved Time Rhino/Enterovirus 12/21/2019 12/21/2019 12/28/2019 3:05 AM GIS ADMINISTRATOR documented as of this encounter Care Teams Internet Developer Relationship Specialty Start Date End Date Guero Colunga DO PCP - General Internal Medicine 03/22/19 04/18/23 Amber Montesinos, RN Telecommunications Officer Transplant 11/17/19 documented as of this encounter
--- OUTSIDE RECORDS SUMMARY | 2024-10-28 06:24 | XMS_ITS | Encounter Summary ---
Author Organization [facility] Address [address] [place] [address] Phone Care Team Providers Care Is Analyst Name Role Phone Guero Colunga DO Primary Care Provider [phone] Amber Montesinos RN Unavailable [phone] Encounter Details Date Type Department Care Team (Late st Contact Info) Description 12/02/2019 Orders Only [facility] Gastroenterology [address] [facility] Advanced Medicine 8th [place] [address] [place] [address] Theodore Gresham MD [address] [facility] [address] [place] [address] Social History Tobacco Use Types Packs/Day Years Used Date Smoking Tobacco: Never Smokeless Tobacco: Never Sex and Gender Information Value Date Recorded Sex Assigned at Not on file Legal Sex Male 6:28 AM TOP CLEANER Gender Identity Not on file Sexual Orientation Straight 08/22/2021 9: 23 AM CDT documented as of this encounter Plan of Treatment Scheduled Procedures Name Priority Associated Diagnoses Date/Ti me COLONOSCOPY Encounter for screening for colorectal cancer in high risk patient Family history of rectal cancer documented as of this encounter Procedures Procedure Name Priority Date/Time Associated Diagnosis Comments COPY(IES) SENT TO: Routine 12/02/2019 9: 25 AM TOP CLEANER CMV DNA QN, PCR Routine 12/02/2019 9:25 AM TOP CLEANER TACROLIMUS LEVEL, TROUGH Routine 12/02/2019 9:25 AM TOP CLEANER CBC WITH AUTO DIFFERENTIAL Routine 12/02/2019 9:25 AM TOP CLEANER GAMMA GT Routine 12/02/2019 9:25 AM TOP CLEANER COMPREHENSIVE METABOLIC PANEL Routine 12/02/2019 9:25 AM TOP CLEANER documented in this encounter Results * (ABNORMAL) CMV DNA QN, PCR (12/02/2019 9:25 AM TOP CLEANER) Pathologist [facility] SOURCE BLOOD [facility] CMV DNA qn 530(H) IU/mL [facility] CMV DNA log IU/mL 2.72(H) Log IU/mL [facility] Comment: REFERENCE RANGE: CMV DNA, QN PCR: <200 IU/mL CMV DNA, QN PCR: <2.30 Log IU/mL This test was developed and its analytical performance characteristics have been determined by [facility]. It has not been cleared or approved by the U.S. Food and Drug Administration. This assay has been validated pursuant to the CLIA regulations and is used for clinical purposes. 12/02/2019 9:25 AM TOP CLEANER 12/02/2019 9:26 AM TOP CLEANER Narrative Resulting Agency Comment Performing Organization Information: ?Site ID: [id number] ?Name: [facility] ?Address: [address] [place] [id number] ?Director: Richie Rodriguez MD Theodore Gresham MD LAB MICROBIOLOGY - GENERAL ORDERABLES Final Result [facility] - [place], [place] * Tacrolimus level trough (12/02/2019 9:25 AM TOP CLEANER) Tacrolimus, highly Sensitive, LC/MS/MS 5.0 mcg/L [facility] [place] Comment: No definitive therapeutic or toxic ranges have been established. Optimal blood drug levels are influenced by type of transplant, patient response, time post- transplant, co-administration of other drugs, and drug formulation. The following trough range is a suggested guideline: 5.0-20.0 mcg/L. This test was developed and its analytical performance characteristics have been determined by [facility]. It has not been cleared or approved by the FDA. This assay has been validated pursuant to the CLIA regulations and is used for clinical purposes. 12/02/2019 9:25 AM TOP CLEANER 12/02/2019 9:26 AM TOP CLEANER Narrative Resulting Agency Comment Performing Organization Information: ?Site ID: [id number] ?Name: [facility] ?Address: [address] [place], [place] [address]ner [facility] [place] [address] ?Director: Jason Buckner D.O., MPH Theodore Gresham MD LAB BLOOD ORDERABLES Final Result [facility] [place] * (ABNORMAL) Comprehensive metabolic panel (12/02/2019 9:25 AM TOP CLEANER) Pathologist [facility] Glucose 69 65 - 99 mg/dL [facility] [place] Comment: ? Fasting reference interval BUN 11 7 - 25 mg/dL [facility] [place] Creatinine 1.07 0.60 - 1.35 mg/dL [facility] [place] eGFR NON-AFR. [place] 95 > OR = 60 mL/min/1. 73m2 [facility] [place] EGFR 110 > OR = 60 mL/min/1. 73m2 [facility] [place] BUN/creat ratio NOT APPLICABLE 6 - 22 (calc) [facility] [place] Sodium 142 135 - 146 mmol/L [facility] [place] Potassium, pl 4.5 3.5 - 5.3 mmol/L [facility] [place] Chloride 104 98 - 110 mmol/L [facility] [place] CO2 25 20 - 32 mmol/L [facility] [place] Calcium 9.0 8.6 - 10.3 mg/dL [facility] [place] Protein, sr 5.6(L) 6.1 - 8.1 g/dL [facility] [place] Albumin 4.0 3.6 - 5.1 g/dL [facility] [place] GLOBULIN 1.6(L) 1.9 - 3.7 g/dL (calc) [facility] [place] Alb/glob ratio 2.5 1.0 - 2.5 (calc) [facility] [place] Bilirubin, total 0.7 0.2 - 1.2 mg/dL [facility] [place] Alk phos 498(H) 40 - 115 U/L [facility] [place] AST 55(H) 10 - 40 U/L [facility] [place] ALT (SGPT) 75(H) 9 - 46 U/L [facility] [place] 12/02/2019 9:25 AM TOP CLEANER 12/02/2019 9:26 AM TOP CLEANER Narrative Resulting Agency Comment Performing Organization Information: ?Site ID: [id number] ?Name: [facility] ?Address: [address] [place] [address] ?Director: Jason Buckner D.O., MPH Theodore Gresham MD LAB BLOOD ORDERABLES Final Result [facility] [place] * (ABNORMAL) Gamma GT (12/02/2019 9:25 AM TOP CLEANER) GGT 342(H) 3 - 70 U/L [facility] [place] 12/02/2019 9:25 AM TOP CLEANER 12/02/2019 9:26 AM TOP CLEANER Narrative Resulting Agency Comment Performing Organization Information: ?Site ID: [id number] ?Name: [facility] ?Address: [address] [place] [address] ?Director: Jason Buckner D.O., MPH Theodore Gresham MD LAB BLOOD ORDERABLES Final Result [facility] [place] * (ABNORMAL) CBC with auto differential (12/02/2019 9:25 AM TOP CLEANER) WBC 4.2 3.8 - 10.8 Thousand/u L [facility] [place] RBC, POC 4.51 4.20 - 5.80 Million/uL [facility] [place] Hgb 15.0 13.2 - 17.1 g/dL [facility] [place] Hct 43.4 38.5 - 50.0 % [facility] [place] MCV 96.2 80.0 - 100.0 fL [facility] [place] MCH 33.3(H) 27.0 - 33.0 pg [facility] [place] MCHC 34.6 32.0 - 36.0 g/dL [facility] [place] Rdw 14.5 11.0 - 15.0 % [facility] [place] Platelets 321 140 - 400 Thousand/u L [facility] [place] MPV 9.5 7.5 - 12.5 fL [facility] [place] Neutrophils, abs 958(L) 1,500 - 7,800 cells/uL [facility] [place] Lymphocytes, abs 2,285 850 - 3,900 cells/uL [facility] [place] Monocyte abs 777 200 - 950 cells/uL [facility] [place] Eosinophils, abs 71 15 - 500 cells/uL [facility] [place] Basophils, abs 109 0 - 200 cells/uL [facility] [place] Neutrophils 22.8 % [facility] [place] Lymphocyte pct 54.4 % [facility] [place] Monocytes 18.5 % [facility] [place] Eosinophils 1.7 % [facility] [place] Basophils 2.6 % [facility] [place] 12/02/2019 9:25 AM TOP CLEANER 12/02/2019 9:26 AM TOP CLEANER Narrative Resulting Agency Comment Performing Organization Information: ?Site ID: [place] ?Name: [facility] ?Address: [address] [place] [address] ?Director: Jason Buckner D.O., MPH Theodore Gresham MD LAB BLOOD ORDERABLES Final Result [facility] [place] * COPY(IES) SENT TO: (12/02/2019 9:25 AM TOP CLEANER) COPY(IES) SENT TO: [facility] Comment: ?[facility] - COPY TO [facility] ?[address] ?[place] [address] 12/02/2019 9:25 AM TOP CLEANER 12/02/2019 9:26 AM TOP CLEANER us Theodore Gresham MD LAB BLOOD ORDERABLES Final Result [facility] documented in this encounter Visit Diagnoses Not on filedocumented in this encounter Care Teams Is Analyst Relationship Specialty Start Date End Date Guero Colunga DO PCP - General Internal Medicine 03/22/19 04/18/23 Amber Montesinos, SHAILESH Manufacturing Quality Inspector Transplant 11/17/19 documented as of this encounter
--- OUTSIDE RECORDS SUMMARY | 2024-10-28 06:24 | XMS_ITS | Encounter Summary ---
Author Organization [facility] Healthcare Address [address] [place] [address] Care Team Providers Care Rubber Off Name Role Phone CristineCarsonGuero Primary Care Provider [phone] Amber Montesinos RN Unavailable [phone] Encounter Details Date Type Department Care Team (Late st Contact Info) Description 11/21/2019 Telephone [facility] Transplant Liver [address] [facility] [phone] [place] [address] Jacquelyn Welsh Social History Tobacco Use Types Packs/Day Years Used Date Smoking Tobacco: Never Smokeless Tobacco: Never Sex and Gender Information Value Date Recorded Sex Assigned at Not on file Legal Sex Male 6:28 AM TRY OUT PERSON Gender Identity Not on file Sexual Orientation Straight 08/22/2021 9: 23 AM CDT documented as of this encounter Miscellaneous Notes * Telephone Encounter - Jacquelyn Welsh - 11/21/2019 9:38 AM CST Call pt's mom [phone], pt will see Dr Gillespie (oncologist) tomorrow, would like to know if ptcan have SO done there tomorrow. If so, what labs are needed? OUT PERSON documented in this encounter Plan of Treatment Scheduled Procedures Name Priority Associated Diagnoses Date/Ti me COLONOSCOPY Encounter for screening for colorectal cancer in high risk patient Family history of rectal cancer documented as of this encounter Visit Diagnoses Not on filedocumented in this encounter Care Teams Rubber Off Relationship Specialty Start Date End Date Guero Colunga DO PCP - General Internal Medicine 03/22/19 04/18/23 Amber Montesinos, SHAILESH Assembly Line Brazer Transplant 11/17/19 documented as of this encounter
--- OUTSIDE RECORDS SUMMARY | 2024-10-28 06:24 | XMS_ITS | Encounter Summary ---
Author Organization [facility] Healthcare Address [address] [place] [address] Care Team Providers Care Rrts Name Role Phone Gene Colungae Primary Care Provider [phone] Amber Montesinos RN Unavailable [phone] Encounter Details Date Type Department Care Team (Late st Contact Info) Description 12/25/2019 11:15 AM HOBBING PRESS OPERATOR Lab [facility] ([facility]) [address] [place] [address] [phone] Viral upper respiratory tract infection; Fever, unspecified fever cause Social History Tobacco Use Types Packs/Day Years Used Date Smoking Tobacco: Never Smokeless Tobacco: Never Alcohol Use Standard Drinks/Week Comments Yes 0 (1 standard drink = 0.6 oz pur e alcohol) occassional Sex and Gender Information Value Date Recorded Sex Assigned at Not on file Legal Sex Male 6:28 AM HOBBING PRESS OPERATOR Gender Identity Not on file Sexual Orientation Straight 08/22/2021 9: 23 AM CDT documented as of this encounter Plan of Treatment Scheduled Procedures Name Priority Associated Diagnoses Date/Ti me COLONOSCOPY Encounter for screening for colorectal cancer in high risk patient Family history of rectal cancer documented as of this encounter Procedures Procedure Name Priority Date/Time Associated Diagnosis Comments BLOOD CULTURE Routine 12/25/2019 10:41 AM HOBBING PRESS OPERATOR Viral upper respiratory tract infection GLUCOSE, RANDOM (OUTREACH) Routine 12/25/2019 10:35 AM HOBBING PRESS OPERATOR Viral upper respiratory tract infection COMPREHENSIVE METABOLIC PANEL WITHOUT GLUCOSE (OUTREACH) Routine 12/25/2019 10:35 AM HOBBING PRESS OPERATOR Viral upper respiratory tract infection COMPREHENSIVE METABOLIC PANEL (OUTREACH) Routine 12/25/2019 10:35 AM HOBBING PRESS OPERATOR Viral upper respiratory tract infection CBC WITH AUTO DIFFERENTIAL Routine 12/25/2019 10:35 AM HOBBING PRESS OPERATOR Viral upper respiratory tract infection MANUAL DIFFERENTIAL Routine 12/25/2019 1 0:35 AM HOBBING PRESS OPERATOR Viral upper respiratory tract infection BLOOD CULTURE Routine 12/25/2019 10:35 AM HOBBING PRESS OPERATOR Viral upper respiratory tract infection documented in this encounter Results * Blood culture Blood Arm, right (12/25/2019 10:41 AM HOBBING PRESS OPERATOR) Report Final Report: No growth [facility] Blood specimen (specimen) (Arm, right) 12/25/2019 10:41 AM HOBBING PRESS OPERATOR 12/25/2019 10:52 AM HOBBING PRESS OPERATOR Narrative [facility] - 12/30/2019 12:02 PM HOBBING PRESS OPERATOR 1. Blood cultures are incubated for 5 days on a continuously monitored blood culture system. The first report of a negative culture is issued within 24 hours of receipt of the specimen in the laboratory. 2. Positive culture results are reported as soon as they are detected. 3. The most important factor for detection of microbes [...] recommended for each blood culture set. 4. For blood cultures with Gram-positive cocci, a rapid molecular test for organism identification may be performed using the Pro[employer] Gram-Positive Blood Culture Assay. This assay detects microbial DNA in positive blood culture broth via hybridization of target DNA to capture oligonucleotides on a microarray. This assay has been cleared by the [place] Food and Drug Administration and its performance characteristics have been verified by the [facility] Microbiology Laboratory. 5. For questions about this culture, contact the Microbiology Laboratory at [phone]. Interpretive data was last revised on 2018. us Ige Sonido Duncan MD LAB MICROBIOLOGY - GENERAL ORDERABLES Final Result [facility] Department [place] [address] * (ABNORMAL) Manual Differential (12/25/2019 10:35 AM HOBBING PRESS OPERATOR) Differential Manual [facility] Cells Counted 115 [facility] Neutrophil abs 0.8(L) 1.7 - 6.5 K/cumm [facility] Imm gran abs 0.0 0.0 - 0.1 K/cumm [facility] Lymphocyte abs 3.6(H) 0.8 - 3.3 K/cumm [facility] Monocyte abs 1.2(H) 0.2 - 0.8 K/cumm [facility] Eosinophil abs 0.2 0.0 - 0.5 K/cumm [facility] Basophil abs 0.2(H) 0.0 - 0.1 K/cumm [facility] Neutrophil pct 13.0 % [facility] Comment: Interpretive Data Percent cell count reference ranges are not reported, since discordance with absolute values may lead to misinterpretation of CBC data. Current Interpretive Data was last revised on 2018. Lymphocyte pct 40.1 % [facility] Comment: Interpretive Data Percent cell count reference ranges are not reported, since discordance with absolute values may lead to misinterpretation of CBC data. Current Interpretive Data was last revised on 2018. Monocyte pct 20.0 % [facility] Comment: Interpretive Data Percent cell count reference ranges are not reported, since discordance with absolute values may lead to misinterpretation of CBC data. Current Interpretive Data was last revised on 2018. Eosinophil pct 2.6 % [facility] Comment: Interpretive Data Percent cell count reference ranges are not reported, since discordance with absolute values may lead to misinterpretation of CBC data. Current Interpretive Data was last revised on 2018. Basophil pct 4.3 % [facility] Comment: Interpretive Data Percent cell count reference ranges are not reported, since discordance with absolute values may lead to misinterpretation of CBC data. Current Interpretive Data was last revised on 2018. Variant lymph pct 20.0 % [facility] RBC morphology Normal [facility] Platelet estimate Adequate [facility] Morphology scrn See Comment [facility] Comment:PLT: Although platet s are clumped on smear; estimate appears adequate to increased in number. Blood specimen (specimen) 12/25/2019 10:35 AM HOBBING PRESS OPERATOR 12/25/2019 12:03 PM HOBBING PRESS OPERATOR us Ige Sonido Duncan MD LAB BLOOD ORDERABLES Final Result [facility] Department [place] [address] * (ABNORMAL) Comprehensive metabolic panel, without glucose (Outreach) (12/25/2019 10:35 AM HOBBING PRESS OPERATOR) Sodium 139 135 - 145 mmol/L [facility] Potassium, pl 4.9 3.3 - 4.9 mmol/L [facility] Chloride 102 97 - 110 mmol/L [facility] CO2 28 22 - 32 mmol/L [facility] Anion gap 9 2 - 15 mmol/L [facility] BUN 13 8 - 25 mg/dL [facility] Creatinine 0.83 0.80 - 1.30 mg/dL [facility] Calcium 9.7 8.5 - 10.3 mg/dL [facility] Protein, pl 7.2 6.5 - 8.5 g/dL [facility] Albumin 4.3 3.5 - 5.0 g/dL [facility] Bilirubin, total 0.6 0.1 - 1.2 mg/dL [facility] Alk phos 505(H) 40 - 130 Units/L [facility] AST 55(H) 10 - 50 Units/L [facility] ALT 56(H) 7 - 55 Units/L [facility] Blood specimen (specimen) 12/25/2019 10:35 AM HOBBING PRESS OPERATOR 12/25/2019 10:56 AM HOBBING PRESS OPERATOR Jil Duncan MD LAB BLOOD ORDERABLES Final Result Performing Organization Address [facility] Co de Phone Number [facility] [place] [address] * Glucose, random (Outreach) (12/25/2019 10:35 AM HOBBING PRESS OPERATOR) Glucose 101 70 - 199 mg/dL [facility] Comment: Interpretive Data Fasting glucose >/= [...] was last revised 2017. Blood specimen (specimen) 12/25/2019 10:35 AM HOBBING PRESS OPERATOR 12/25/2019 10:56 AM HOBBING PRESS OPERATOR Jil Duncan MD LAB BLOOD ORDERABLES Final Result Performing Organization Address [place] de Phone Number [facility] [place] [address] * Blood culture Blood Arm, left (12/25/2019 10:35 AM HOBBING PRESS OPERATOR) Report Final Report: No growth [facility] Blood specimen (specimen) (Arm, left) 12/25/2019 10:35 AM HOBBING PRESS OPERATOR 12/25/2019 10:52 AM HOBBING PRESS OPERATOR Narrative [facility] - 12/30/2019 12:02 PM HOBBING PRESS OPERATOR 1. Blood cultures are incubated for 5 days on a continuously monitored blood culture system. The first report of a negative culture is issued within 24 hours of receipt of the specimen in the laboratory. 2. Positive culture results are reported as soon as they are detected. 3. The most important factor for detection of microbes [...] recommended for each blood culture set. 4. For blood cultures with Gram-positive cocci, a rapid molecular test for organism identification may be performed using the [employer] Gram-Positive Blood Culture Assay. This assay detects microbial DNA in positive blood culture broth via hybridization of target DNA to capture oligonucleotides on a microarray. This assay has been cleared by the [place] Food and Drug Administration and its performance characteristics have been verified by the [facility] Microbiology Laboratory. 5. For questions about this culture, contact the Microbiology Laboratory at [phone]. Interpretive data was last revised on 2018. Ige Sonido Duncan MD LAB MICROBIOLOGY - GENERAL ORDERABLES Final Result [facility] Department [place] [address] * (ABNORMAL) CBC with auto differential (12/25/2019 10:35 AM HOBBING PRESS OPERATOR) WBC 5.9 3.8 - 9.9 K/cumm [facility] Hgb 15.6 13.0 - 17.5 g/dL [facility] Hct 45.1 38.9 - 50.3 % [facility] Plt 315 150 - 400 K/cumm [facility] MPV 9.7 9.1 - 12.3 fL [facility] RBC 4.75 4.30 - 5.80 M/cumm [facility] MCV 94.9 81.3 - 96.4 fL [facility] MCH 32.8 27.1 - 33.3 pg [facility] MCHC 34.6 32.3 - 35.7 g/dL [facility] RDW CV 14.6 11.1 - 14.9 % [facility] RDW SD 51.8(H) 35.7 - 48.1 fL [facility] NRBC abs 0.00 0.00 - 0.01 K/cumm [facility] Blood specimen (specimen) 12/25/2019 10:35 AM HOBBING PRESS OPERATOR 12/25/2019 12:03 PM HOBBING PRESS OPERATOR Ige Sonido Duncan MD LAB BLOOD ORDERABLES Edite d Result - Final [facility] Department [place] [address] documented in this encounter Visit Diagnoses Diagnosis Viral upper respiratory tract infection Acute upper respiratory infections of unspecified site Fever, unspecified fever cause documented in this encounter Additional Health Concerns Infection Onset Date Last Indicated Resolved Time Rhino/Enterovirus 12/21/2019 12/21/2019 12/28/2019 3:05 AM HOBBING PRESS OPERATOR documented as of this encounter Care Teams Rrts Relationship Specialty Start Date End Date Guero Colunga DO PCP - General Internal Medicine 03/22/19 04/18/23 Amber Montesinos, SHAILESH Senior Marketing Specialist Transplant 11/17/19 documented as of this encounter
--- OUTSIDE RECORDS SUMMARY | 2024-10-28 06:24 | XMS_ITS | Encounter Summary ---
Author Organization [facility] Healthcare Address [address] [place] [address] Care Team Providers Care Area Development Consultant Name Role Phone Guero Colunga DO Primary Care Provider [phone] Amber Montesinos RN Unavailable [phone] Encounter Details Date Type Department Care Team (Late st Contact Info) Description 11/21/2019 Telephone [facility] and [facility] Transplant Liver [address] [facility] [address] [phone] [place], [place] [id number] Amber Montesinos, SHAILESH Social History Tobacco Use Types Packs/Day Years Used Date Smoking Tobacco: Never Smokeless Tobacco: Never Sex and Gender Information Value Date Recorded Sex Assigned at Not on file Legal Sex Male 6:28 AM CLINICAL DOCUMENTATION DEVELOPER Gender Identity Not on file Sexual Orientation Straight 08/22/2021 9: 23 AM CDT documented as of this encounter Miscellaneous Notes * Telephone Encounter - Amber Vargas RN - 11/21/2019 11:24 AM CLINICAL DOCUMENTATION DEVELOPER Returned call to pt's mom. Pt is coming in tomorrow for oncology appt and would like to have labs drawn prior to appt. Will place on time order for CBC, CMP, GGT, CMV PCR Quant and tacrolimus level. ICAL DOCUMENTATION DEVELOPER documented in this encounter Plan of Treatment Scheduled Procedures Name Priority Associated Diagnoses Date/Ti me COLONOSCOPY Encounter for screening for colorectal cancer in high risk patient Family history of rectal cancer documented as of this encounter Results * (ABNORMAL) CBC with auto differential (05/14/2020 10:36 AM CDT) Pathologist [facility] WBC 14.8(H) 3.8 - 9.9 K/cumm [facility] Hgb 16.2 13.0 - 17.5 g/dL [facility] Hct 45.9 38.9 - 50.3 % [facility] Plt 260 150 - 400 K/cumm [facility] MPV 9.7 9.1 - 12.3 fL [facility] RBC 4.83 4.30 - 5.80 M/cumm [facility] MCV 95.0 81.3 - 96.4 fL [facility] MCH 33.5(H) 27.1 - 33.3 pg [facility] MCHC 35.3 32.3 - 35.7 g/dL [facility] RDW CV 14.6 11.1 - 14.9 % [facility] RDW SD 51.7(H) 35.7 - 48.1 fL [facility] NRBC abs 0.00 0.00 - 0.01 K/cumm [facility] Blood specimen (specimen) 05/14/2020 10:36 AM CDT 05/14/2020 10:51 AM CDT Theodore Gresham MD LAB BLOOD ORDERABLES Final Result [facility] Department [place] [address] * (ABNORMAL) Comprehensive metabolic panel (05/14/2020 9:28 AM CDT) Pathologist [facility] Sodium 142 135 - 145 mmol/L [facility] Potassium, pl 4.8 3.3 - 4.9 mmol/L [facility] Chloride 107 97 - 110 mmol/L [facility] CO2 26 22 - 32 mmol/L [facility] Anion gap 9 2 - 15 mmol/L [facility] BUN 7(L) 8 - 25 mg/dL [facility] Creatinine 0.92 0.80 - 1.30 mg/dL [facility] Glucose 97 70 - 199 mg/dL [facility] Comment: Interpretive Data Fasting glucose [...] 2017. Calcium 9.3 8.5 - 10.3 mg/dL [facility] Bilirubin, total 0.5 0.1 - 1.2 mg/dL [facility] Protein, pl 6.3(L) 6.5 - 8.5 g/dL [facility] Albumin 4.4 3.5 - 5.0 g/dL [facility] Alk phos 408(H) 40 - 130 Units/L [facility] ALT 47 7 - 55 Units/L [facility] AST 43 10 - 50 Units/L [facility] Blood specimen (specimen) 05/14/2020 9:28 AM CDT 05/14/2020 9:51 AM CDT Theodore Gresham MD LAB BLOOD ORDERABLES Final Result [facility] Department [place] [address] * (ABNORMAL) Cytomegalovirus (CMV) DNA PCR, quantitative Blood (11/22/2019 8:27 AM CLINICAL DOCUMENTATION DEVELOPER) [facility] CMV DNA Detected( A) [facility] Comment: Interpretive Data: The quantifiable range of this assay is 137 IUnits/mL to 9,100,000 IUnits/mL (2.14 log IUnits/mL to 6.96 log IUnits/mL). Testing was performed by the [employer]IA AmpliPrep/NIA TaqMan CMV Test ([employer] Testing performed at [facility] Current interpretive data was last revised on 17. CMV DNA IU/mL <137 IUnits/mL [facility] CMV DNA log IU/mL <2.14 log IUnits/mL [facility] Blood specimen (specimen) 11/22/2019 8:27 AM CLINICAL DOCUMENTATION DEVELOPER 11/22/2019 10:20 AM CLINICAL DOCUMENTATION DEVELOPER Theodore Gresham MD LAB MICROBIOLOGY - GENERAL ORDERABLES Final Result Performing Organization Address [facility]/ZIP Co de Phone Number [facility] Department [place] [address] * Tacrolimus level trough (11/22/2019 8:23 AM CLINICAL DOCUMENTATION DEVELOPER) Tacrolimus, trough 6.0 ng/mL [facility] Comment: Interpretive Data Testing performed by [...] Drug administration. ??Current interpretive data last reviewed 2019. Blood specimen (specimen) 11/22/2019 8:23 AM CLINICAL DOCUMENTATION DEVELOPER 11/22/2019 8:38 AM CLINICAL DOCUMENTATION DEVELOPER Theodore Gresham MD LAB BLOOD ORDERABLES Final Result Performing Organization Address City/[facility]/ZIP Co de Phone Number [facility] Department [place] [address] * (ABNORMAL) Gamma GT (11/22/2019 8:23 AM CLINICAL DOCUMENTATION DEVELOPER) GGT 295(H) 10 - 50 Units/L [facility] Blood specimen (specimen) 11/22/2019 8:23 AM CLINICAL DOCUMENTATION DEVELOPER 11/22/2019 8:55 AM CLINICAL DOCUMENTATION DEVELOPER us Theodore Gresham MD LAB BLOOD ORDERABLES Final Result Performing Organization Address City/State/[facility] Co de Phone Number [facility] Department [place] [address] documented in this encounter Visit Diagnoses Diagnosis Cytomegalovirus infection, unspecified cytomegaloviral infection type (HCC)- Primary History of liver transplant (CMS/HCC) (HCC) Liver replaced by transplant documented in this encounter Care Teams Area Development Consultant Relationship Specialty Start Date End Date Guero Colunga DO PCP - General Internal Medicine 03/22/19 04/18/23 Amber Montesinos, RN Tanning Consultant Transplant 11/17/19 documented as of this encounter
--- OUTSIDE RECORDS SUMMARY | 2024-10-28 06:24 | XMS_ITS | Encounter Summary ---
Author Organization [facility] Healthcare Address [address] [place] [address] Care Team Providers Care Factory Maintenance Technician Name Role Phone Munira Rick RN Unavailable [phone] Guero Colunga DO Primary Care Provider [phone] Encounter Details Date Type Department Care Team (Late st Contact Info) Description 11/13/2019 Telephone [facility] Transplant Liver [address] [facility] [address] [phone] [place] [address] Tarik Perry Social History Tobacco Use Types Packs/Day Years Used Date Smoking Tobacco: Never Smokeless Tobacco: Never Sex and Gender Information Value Date Recorded Sex Assigned at Not on file Legal Sex Male 6:28 AM FIRE BOSS Gender Identity Not on file Sexual Orientation Straight 08/22/2021 9: 23 AM CDT documented as of this encounter Miscellaneous Notes * Telephone Encounter - Munira Rick - 11/13/2019 1:58 PM CST Returned call to [facility]- they wanted to confirm that dose was increased to 450 mg BID. Confirmed with pharmacy. BOSS * Telephone Encounter - Tarik Perry - 11/13/2019 1:52 PM CST Please call [facility] [phone], question regarding dosage on patient;s valGANciclovir (VALCYTE) 450 mg tablet BOSS documented in this encounter Plan of Treatment Scheduled Procedures Name Priority Associated Diagnoses Date/Ti me COLONOSCOPY Encounter for screening for colorectal cancer in high risk patient Family history of rectal cancer documented as of this encounter Visit Diagnoses Not on filedocumented in this encounter Care Teams Factory Maintenance Technician Relationship Specialty Start Date End Date Guero Colunga DO [address] [facility] [address] [place] [address] PCP - General Internal Medicine 03/22/19 04/18/23 Munira Rick, RN [address] [place] [address] Woodworking Craftsman 04/01/18 documented as of this encounter
--- OUTSIDE RECORDS SUMMARY | 2024-10-28 06:24 | XMS_ITS | Encounter Summary ---
Author Organization [facility] Healthcare Address [address] [place] [address] Care Team Providers Care Conditioning Room Worker Name Role Phone Guero Colunga DO Primary Care Provider [phone] Amber Montesinos RN Unavailable [phone] Encounter Details Date Type Department Care Team (Late st Contact Info) Description 12/18/2019 Telephone [facility] and [facility] Transplant Liver [address] [facility] [address] [phone] [place] [address] Amber Montesinos, SHAILESH Social History Tobacco Use Types Packs/Day Years Used Date Smoking Tobacco: Never Smokeless Tobacco: Never Sex and Gender Information Value Date Recorded Sex Assigned at Not on file Legal Sex Male 6:28 AM PIGMENT PUMPER Gender Identity Not on file Sexual Orientation Straight 08/22/2021 9: 23 AM CDT documented as of this encounter Miscellaneous Notes * Telephone Encounter - Amber Vargas RN - 12/18/2019 6:00 PM CST hand kiss setter note: Received call from [facility]. Critical tacrolimus level of 3.8. Result withinnormal limits; no further action needed. ENT PUMPER documented in this encounter Plan of Treatment Scheduled Procedures Name Priority Associated Diagnoses Date/Ti me COLONOSCOPY Encounter for screening for colorectal cancer in high risk patient Family history of rectal cancer documented as of this encounter Visit Diagnoses Not on filedocumented in this encounter Care Teams Conditioning Room Worker Relationship Specialty Start Date End Date Guero Colunga DO PCP - General Internal Medicine 03/22/19 04/18/23 Amber Montesinos, SHAILESH Portal Developer Transplant 11/17/19 documented as of this encounter
--- OUTSIDE RECORDS SUMMARY | 2024-10-28 06:24 | XMS_ITS | Encounter Summary ---
Author Organization [facility] Healthcare Address [address] [place] [address] Care Team Providers Care Cartographic Drafter Name Role Phone Munira Rick RN Unavailable Guero Colunga DO Primary Care Provider [phone] Encounter Details Date Type Department Care Team (Late st Contact Info) Description 11/14/2019 Telephone [facility] Transplant Liver [address] [facility] [address] [phone] [place] [address] Munira Rick, RN [address] [facility] [address] [place] [address] Social History Tobacco Use Types Packs/Day Years Used Date Smoking Tobacco: Never Smokeless Tobacco: Never Sex and Gender Information Value Date Recorded Sex Assigned at Not on file Legal Sex Male 6:28 AM TAX ADJUSTER Gender Identity Not on file Sexual Orientation Straight 08/22/2021 9: 23 AM CDT documented as of this encounter Miscellaneous Notes * Telephone Encounter - Munira Rick - 11/14/2019 8:56 AM CST Deniedtoday Request Reference Number: [id number]. VALGANCICLOV TAB 450MG is denied for not meeting the prior authorization requirement(s). For further questions, call . Appeals are not supported through ePA. Please refer to the fax case notice for appeals information and instructions. Called [facility] to appeal denial due to pt now with active CMV. Pt has plan exclusion of 62 pills per 30 days. Pt's Valctye was approved until 12/15/2019. Reference # [id number]. Called [facility] total cost of $1400 per month. Will ask Ada if there is any client relations representative assistance for this medication. Thank you. ADJUSTER documented in this encounter Plan of Treatment Scheduled Procedures Name Priority Associated Diagnoses Date/Ti me COLONOSCOPY Encounter for screening for colorectal cancer in high risk patient Family history of rectal cancer documented as of this encounter Visit Diagnoses Not on filedocumented in this encounter Care Teams Cartographic Drafter Relationship Specialty Start Date End Date Guero Colunga DO [address] [facility] [address] [place] [address] PCP - General Internal Medicine 03/22/19 04/18/23 Munira Rick, RN [address] [facility] [address] [place] [address] Trauma Coordinator 04/01/18 documented as of this encounter
--- OUTSIDE RECORDS SUMMARY | 2024-10-28 06:24 | XMS_ITS | Encounter Summary ---
Author Organization [facility] Address [address] [place] [address] Phone Care Team Providers Care Ornament Stitcher Name Role Phone Guero Colunga DO Primary Care Provider [phone] Amber Montesinos RN Unavailable [phone] Encounter Details Date Type Department Care Team (Late st Contact Info) Description 12/09/2019 Orders Only [facility] Gastroenterology [address] [facility] Advanced Medicine 8th [place] [address] [place] [address] Theodore Gresham MD [address] [facility] [address] [place] [address] Social History Tobacco Use Types Packs/Day Years Used Date Smoking Tobacco: Never Smokeless Tobacco: Never Sex and Gender Information Value Date Recorded Sex Assigned at Not on file Legal Sex Male 6:28 AM DATA INTEGRITY ANALYST Gender Identity Not on file Sexual Orientation Straight 08/22/2021 9: 23 AM CDT documented as of this encounter Plan of Treatment Scheduled Procedures Name Priority Associated Diagnoses Date/Ti me COLONOSCOPY Encounter for screening for colorectal cancer in high risk patient Family history of rectal cancer documented as of this encounter Procedures Procedure Name Priority Date/Time Associated Diagnosis Comments COPY(IES) SENT TO: Routine 12/09/2019 9: 26 AM DATA INTEGRITY ANALYST CMV DNA QN, PCR Routine 12/09/2019 9:26 AM DATA INTEGRITY ANALYST TACROLIMUS LEVEL, TROUGH Routine 12/09/2019 9:26 AM DATA INTEGRITY ANALYST CBC WITH AUTO DIFFERENTIAL Routine 12/09/2019 9:26 AM DATA INTEGRITY ANALYST GAMMA GT Routine 12/09/2019 9:26 AM DATA INTEGRITY ANALYST COMPREHENSIVE METABOLIC PANEL Routine 12/09/2019 9:26 AM DATA INTEGRITY ANALYST documented in this encounter Results * Tacrolimus level trough (12/09/2019 9:26 AM DATA INTEGRITY ANALYST) [facility] Tacrolimus, highly Sensitive, LC/MS/MS 6.3 mcg/L [facility] Comment: No definitive therapeutic or toxic ranges have been established. Optimal blood drug levels are influenced by type of transplant, patient response, time post- transplant, co-administration of other drugs, and drug formulation. The following trough range is a suggested guideline: 5.0-20.0 mcg/L. This test was developed and its analytical performance characteristics have been determined by [facility]. It has not been cleared or approved by the FDA. This assay has been validated pursuant to the CLIA regulations and is used for clinical purposes. 12/09/2019 9:26 AM DATA INTEGRITY ANALYST 12/09/2019 9:28 AM DATA INTEGRITY ANALYST [facility] - 12/12/2019 7:49 AM DATA INTEGRITY ANALYST FASTING:YES FASTING: YES Resulting Agency Comment Performing Organization Information: ?Site ID: [place] ?Name: [facility] ?[address] [place] [address] ?Director: Jason Buckner D.O., MPH us Theodore Gresham MD LAB BLOOD ORDERABLES Final Result [facility] [place] * (ABNORMAL) CMV DNA QN, PCR (12/09/2019 9:26 AM DATA INTEGRITY ANALYST) SOURCE [facility] CMV DNA qn 626(H) IU/mL [facility] CMV DNA log IU/mL 2.80(H) Log IU/mL [facility] Comment: REFERENCE RANGE: CMV DNA, QN PCR: <200 IU/mL CMV DNA, QN PCR: <2.30 Log IU/mL This test was developed and its analytical performance characteristics have been determined by [facility]. It has not been cleared or approved by the U.S. Food and Drug Administration. This assay has been validated pursuant to the CLIA regulations and is used for clinical purposes. 12/09/2019 9:26 AM DATA INTEGRITY ANALYST 12/09/2019 9:28 AM DATA INTEGRITY ANALYST Narrative [facility] - 12/12/2019 7:49 AM DATA INTEGRITY ANALYST FASTING:YES FASTING: YES Resulting Agency Comment Performing Organization Information: ?Site ID: [facility] ?Name: [facility] ?Address: [address] [place] [id number] ?Director: Richie Rodriguez MD Theodore Gresham MD LAB MICROBIOLOGY - GENERAL ORDERABLES Final Result Performing Organization Address City/State/[facility] Co de Phone Number [facility] - [place], [place] * (ABNORMAL) CBC with auto differential (12/09/2019 9:26 AM DATA INTEGRITY ANALYST) WBC 7.9 3.8 - 10.8 Thousand/u L [facility] [place] RBC, POC 4.60 4.20 - 5.80 Million/uL [facility] [place] Hgb 15.4 13.2 - 17.1 g/dL [facility] [place] Hct 44.2 38.5 - 50.0 % [facility] [place] MCV 96.1 80.0 - 100.0 fL [facility] [place] MCH 33.5(H) 27.0 - 33.0 pg [facility] [place] MCHC 34.8 32.0 - 36.0 g/dL [facility] [place] Rdw 14.6 11.0 - 15.0 % [facility] [place] Platelets 326 140 - 400 Thousand/u L [facility] [place] MPV 10.1 7.5 - 12.5 fL [facility] [place] Neutrophils, abs 3,263 1,500 - 7,800 cells/uL [facility] [place] Lymphocytes, abs 3,484 850 - 3,900 cells/uL [facility] [place] Monocyte abs 956(H) 200 - 950 cells/uL [facility] [place] Eosinophils, abs 63 15 - 500 cells/uL [facility] [place] Basophils, abs 134 0 - 200 cells/uL [facility] [place] Neutrophils 41.3 % [facility] [place] Lymphocyte pct 44.1 % [facility] [place] Monocytes 12.1 % [facility] [place] Eosinophils 0.8 % [facility] [place] Basophils 1.7 % [facility] [place] 12/09/2019 9:26 AM DATA INTEGRITY ANALYST 12/09/2019 9:28 AM DATA INTEGRITY ANALYST Narrative [facility] - 12/12/2019 7:49 AM DATA INTEGRITY ANALYST FASTING:YES FASTING: YES Resulting Agency Comment Performing Organization Information: ?Site ID: [place] ?Name: [facility] ?Address: [address] [place] [address] [place] [address] ?Director: Jason Buckner D.O., MPH Theodore Gresham MD LAB BLOOD ORDERABLES Final Result [place], [place] * (ABNORMAL) Comprehensive metabolic panel (12/09/2019 9:26 AM DATA INTEGRITY ANALYST) Glucose 141(H) 65 - 99 mg/dL [facility] Comment: ? Fasting reference interval For someone without known diabetes, a glucose value >125 mg/dL indicates that they may have diabetes and this should be confirmed with a follow-up test. BUN 12 7 - 25 mg/dL [facility] [place] Creatinine 0.90 0.60 - 1.35 mg/dL [facility] - [place] eGFR NON-AFR. PERUVIAN 117 > OR = 60 mL/min/1. 73m2 [facility] [place] EGFR 136 > OR = 60 mL/min/1. 73m2 [facility] [place] BUN/creat ratio NOT APPLICABLE 6 - 22 (calc) [facility] [place] Sodium 139 135 - 146 mmol/L [facility] [place] Potassium, pl 4.4 3.5 - 5.3 mmol/L [facility] [place] Chloride 108 98 - 110 mmol/L [facility] [place] CO2 25 20 - 32 mmol/L [facility] [place] Calcium 9.0 8.6 - 10.3 mg/dL [facility] [place] Protein, sr 5.2(L) 6.1 - 8.1 g/dL [facility] [place] Albumin 3.9 3.6 - 5.1 g/dL [facility] [place] GLOBULIN 1.3(L) 1.9 - 3.7 g/dL (calc) [facility] [place] Alb/glob ratio 3.0(H) 1.0 - 2.5 (calc) [facility] [place] Bilirubin, total 0.5 0.2 - 1.2 mg/dL [facility] [place] Alk phos 454(H) 36 - 130 U/L [facility] [place] AST 34 10 - 40 U/L [facility] [place] ALT (SGPT) 47(H) 9 - 46 U/L [facility] [place] 12/09/2019 9:26 AM DATA INTEGRITY ANALYST 12/09/2019 9:28 AM DATA INTEGRITY ANALYST Narrative [facility] - 12/12/2019 7:49 AM DATA INTEGRITY ANALYST FASTING:YES FASTING: YES Resulting Agency Comment Performing Organization Information: ?Site ID: [place] ?Name: [facility] ?Address: [address] [place], [place] [address] [address] ?Director: Jsaon Buckner D.O. MPH Theodore Gresham MD LAB BLOOD ORDERABLES Final Result [facility] [place] * (ABNORMAL) Gamma GT (12/09/2019 9:26 AM DATA INTEGRITY ANALYST) GGT 272(H) 3 - 70 U/L [facility] [place] 12/09/2019 9:26 AM DATA INTEGRITY ANALYST 12/09/2019 9:28 AM DATA INTEGRITY ANALYST Narrative [facility] - 12/12/2019 7:49 AM DATA INTEGRITY ANALYST FASTING:YES FASTING: YES Resulting Agency Comment Performing Organization Information: ?Site ID: [place] ?Name: [facility] ?Address: [address] [place] [address] ?Director: Jason Buckner D.O., MPH us Theodore Gresham MD LAB BLOOD ORDERABLES Final Result Performing Organization Address City/[facility]/ZIP Co de Phone Number [facility] [place] * COPY(IES) SENT TO: (12/09/2019 9:26 AM DATA INTEGRITY ANALYST) COPY(IES) SENT TO: [facility] Comment: ?[facility] LIVER - COPY TO ACCT ?[address] ?[place] [address] 12/09/2019 9:26 AM DATA INTEGRITY ANALYST 12/09/2019 9:28 AM DATA INTEGRITY ANALYST Narrative [facility] - 12/12/2019 7:49 AM DATA INTEGRITY ANALYST FASTING:YES FASTING: YES Theodore Gresham MD LAB BLOOD ORDERABLES Final Result Performing Organization Address City/[facility] Co de Phone Number [facility] documented in this encounter Visit Diagnoses Not on filedocumented in this encounter Care Teams Ornament Stitcher Relationship Specialty Start Date End Date Guero Colunga DO PCP - General Internal Medicine 03/22/19 04/18/23 Amber Montesinos, SHAILESH Quantitative Analyst Developer Transplant 11/17/19 documented as of this encounter
--- OUTSIDE RECORDS SUMMARY | 2024-10-28 06:24 | XMS_ITS | Encounter Summary ---
Author Organization [facility] Healthcare Address [address] [place] [address] Care Team Providers Care Tailings Man Name Role Phone Guero Colunga DO Primary Care Provider [phone] Amber Montesinos RN Unavailable [phone] Encounter Details Date Type Department Care Team (Late st Contact Info) Description 12/12/2019 Documentation [facility] Transplant Liver [address] [facility] [address] [phone] [place] [address] Eli Brink Social History Tobacco Use Types Packs/Day Years Used Date Smoking Tobacco: Never Smokeless Tobacco: Never Sex and Gender Information Value Date Recorded Sex Assigned at Not on file Legal Sex Male 6:28 AM STARBUCKS CLERK Gender Identity Not on file Sexual Orientation Straight 08/22/2021 9: 23 AM CDT documented as of this encounter Plan of Treatment Scheduled Procedures Name Priority Associated Diagnoses Date/Ti me COLONOSCOPY Encounter for screening for colorectal cancer in high risk patient Family history of rectal cancer documented as of this encounter Visit Diagnoses Not on filedocumented in this encounter Care Teams Tailings Man Relationship Specialty Start Date End Date Guero Colunga DO PCP - General Internal Medicine 03/22/19 04/18/23 Amber Montesinos RN Sales Facilitator Transplant 11/17/19 documented as of this encounter
--- OUTSIDE RECORDS SUMMARY | 2024-10-28 06:24 | XMS_ITS | Encounter Summary ---
Author Organization [facility] Healthcare Address [address] [place] [address] Care Team Providers Care Human Resources Benefits Coordinator Name Role Phone Guero Colunga DO Primary Care Provider [phone] Amber Montesinos RN Unavailable [phone] Encounter Details Date Type Department Care Team (Late st Contact Info) Description 11/23/2019 Telephone [facility] Transplant Liver [address] [facility] [address] [phone] [place] [address] Amber Montesinos, SHAILESH Social History Tobacco Use Types Packs/Day Years Used Date Smoking Tobacco: Never Smokeless Tobacco: Never Sex and Gender Information Value Date Recorded Sex Assigned at Not on file Legal Sex Male 6:28 AM MISSILE MECHANIC Gender Identity Not on file Sexual Orientation Straight 08/22/2021 9: 23 AM CDT documented as of this encounter Miscellaneous Notes * Telephone Encounter - Amber Vargas RN - 11/23/2019 11:41 AM MISSILE MECHANIC Reviewed patient's lab results from 11/22/[address] Lemus. Patient currently being treated forCMV viremia. No changes to medications to make at this time. Called patient's mother Brooklynn to confirm that she patient will be getting his blood drawn weekly until CMV DNA PCR's are consecutively negative. Pt's mother also asking if patient can transmit CMV infection to others. Let her know that patient should avoid contact with other immunosuppressed individuals- elderly, children/babies, immunocompromised. Also offered patient's mother our outpatient bilingual social worker number since her valcyte prescription cost is high. Pt's mother stating that they have to meet their deductible so they do not need theinformation at this time. ILE MECHANIC documented in this encounter Plan of Treatment Scheduled Procedures Name Priority Associated Diagnoses Date/Ti me COLONOSCOPY Encounter for screening for colorectal cancer in high risk patient Family history of rectal cancer documented as of this encounter Visit Diagnoses Not on filedocumented in this encounter Care Teams Human Resources Benefits Coordinator Relationship Specialty Start Date End Date Guero Colunga DO PCP - General Internal Medicine 03/22/19 04/18/23 Amber Montesinos RN Elevator Operator Service Transplant 11/17/19 documented as of this encounter
--- OUTSIDE RECORDS SUMMARY | 2024-10-28 06:24 | XMS_ITS | Encounter Summary ---
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) Social History Tobacco Use Types Packs/Day Years Used Date Smoking Tobacco: Never Smokeless Tobacco: Never Sex and Gender Information Value Date Recorded Sex Assigned at Not on file Legal 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
--- OUTSIDE RECORDS SUMMARY | 2024-10-28 06:24 | XMS_ITS | Encounter Summary ---
Author Organization [facility] Address [address] [place] [address] Phone Care Team Providers Care Pile Driver Engineer Name Role Phone Guero Colunga DO Primary Care Provider Amber Montesinos RN Unavailable [phone] Encounter Details Date Type Department Care Team (Late st Contact Info) Description 12/16/2019 Orders Only [facility] Gastroenterology [address] [facility] [address] [facility] 8th [place] [address] [place] [address] Theodore Gresham MD [address] [facility] [address] [place] [address] Social History Tobacco Use Types Packs/Day Years Used Date Smoking Tobacco: Never Smokeless Tobacco: Never Sex and Gender Information Value Date Recorded Sex Assigned at Not on file Legal Sex Male 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 Gender Identity Not on file [...] Associated Diagnosis Comments COPY(IES) SENT TO: Routine 12/16/2019 10 :28 AM 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 CMV DNA QN, PCR Routine 12/16/2019 10:28 AM 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 TACROLIMUS LEVEL, TROUGH Routine 12/16/2019 10:28 AM 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 CBC WITH AUTO DIFFERENTIAL Routine 12/16/2019 10:28 AM 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 GAMMA GT Routine 12/16/2019 10:28 AM 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 COMPREHENSIVE METABOLIC PANEL Routine 12/16/2019 10:28 AM 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 documented in this encounter Results * (ABNORMAL) CMV DNA QN, PCR (12/16/2019 10:28 AM 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) Pathologist [facility] SOURCE WHOLE BLOOD [facility] CMV DNA qn 940(H) IU/mL [facility] CMV DNA log IU/mL 2.97(H) Log IU/mL [facility] Comment: REFERENCE RANGE: CMV DNA, QN PCR: <200 IU/mL CMV DNA, QN PCR: <2.30 Log IU/mL This test was developed and its analytical performance characteristics have been determined by [facility]. It has not been cleared or approved by the U.S. Food and Drug Administration. This assay has been validated pursuant to the CLIA regulations and is used for clinical purposes. 12/16/2019 10:2 8 AM 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 12/16/2019 10:29 AM 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 Narrative Resulting Agency Comment Performing Organization Information: ?Site ID: [id number] ?Name: [facility] ?Address: [address] [place] [id number] ?Director: Richie Rodriguez MD Theodore Gresham MD LAB MICROBIOLOGY - GENERAL ORDERABLES Final Result [facility] - [place], [place] * (ABNORMAL) Tacrolimus level trough (12/16/2019 10:28 AM 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) [facility] Tacrolimus, highly Sensitive, LC/MS/MS 3.8(L) mcg/L [facility] Comment: No definitive therapeutic or toxic ranges have been established. Optimal blood drug levels are influenced by type of transplant, patient response, time post- transplant, co-administration of other drugs, and drug formulation. The following trough range is a suggested guideline: 5.0-20.0 mcg/L. This test was developed and its analytical performance characteristics have been determined by [facility]. It has not been cleared or approved by the FDA. This assay has been validated pursuant to the CLIA regulations and is used for clinical purposes. 12/16/2019 10:2 8 AM 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 12/16/2019 10:29 AM 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 Narrative Resulting Agency Comment Performing Organization Information: ?Site ID: [id number] ?Name: [facility] ?Address: [address] [place] [address] [place] [address] ?Director: Jason Buckner D.O., MPH Theodore Gresham MD LAB BLOOD ORDERABLES Final Result [facility] [place] * (ABNORMAL) Comprehensive metabolic panel (12/16/2019 10:28 AM 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) [facility] Glucose 118(H) 65 - 99 mg/dL [facility] Comment: ? Fasting reference interval For someone without known diabetes, a glucose value between 100 and 125 mg/dL is consistent with prediabetes and should be confirmed with a follow-up test. BUN 9 7 - 25 mg/dL [facility] [place] Creatinine 0.78 0.60 - 1.35 mg/dL [facility] [place] eGFR NON-AFR. [facility] 125 > OR = 60 mL/min/1. 73m2 [facility] [place] EGFR 144 > OR = 60 mL/min/1. 73m2 [facility] [place] BUN/creat ratio NOT APPLICABLE 6 - 22 (calc) [facility] [place] Sodium 144 135 - 146 mmol/L [facility] [place] Potassium, pl 4.6 3.5 - 5.3 mmol/L [facility] [place] Chloride 108 98 - 110 mmol/L [facility] [place] CO2 23 20 - 32 mmol/L [facility] [place] Calcium 9.3 8.6 - 10.3 mg/dL [facility] [place] Protein, sr 5.7(L) 6.1 - 8.1 g/dL [facility] [place] Albumin 4.1 3.6 - 5.1 g/dL [facility] [place] GLOBULIN 1.6(L) 1.9 - 3.7 g/dL (calc) [facility] [place] Alb/glob ratio 2.6(H) 1.0 - 2.5 (calc) [facility] [place] Bilirubin, total 0.4 0.2 - 1.2 mg/dL [facility] [place] Alk phos 476(H) 36 - 130 U/L [facility] [place] AST 42(H) 10 - 40 U/L [facility] [place] ALT (SGPT) 50(H) 9 - 46 U/L [facility] [place] 12/16/2019 10:2 8 AM 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 12/16/2019 10:29 AM 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 Narrative Resulting Agency Comment Performing Organization Information: ?Site ID: [id number] ?Name: [facility] ?Address: [address] [place] [address] ?Director: Jason Buckner D.O. MPH Theodore Gresham MD LAB BLOOD ORDERABLES Final Result [facility] - [place] * (ABNORMAL) Gamma GT (12/16/2019 10:28 AM 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) GGT 283(H) 3 - 70 U/L [facility] [place] 12/16/2019 10:2 8 AM 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 12/16/2019 10:29 AM 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 Narrative Resulting Agency Comment Performing Organization Information: ?Site ID: [id number] ?Name: [facility] ?Address: [address] [address] [address] ?Director: Jason Buckner D.O., MPH Theodore Gresham MD LAB BLOOD ORDERABLES Final Result [facility] [place] * (ABNORMAL) CBC with auto differential (12/16/2019 10:28 AM 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) WBC 7.2 3.8 - 10.8 Thousand/u L [facility] [place] RBC, POC 4.68 4.20 - 5.80 Million/uL [facility] [place] Hgb 15.5 13.2 - 17.1 g/dL [facility] [place] Hct 44.7 38.5 - 50.0 % [facility] [place] MCV 95.5 80.0 - 100.0 fL [facility] [place] MCH 33.1(H) 27.0 - 33.0 pg [facility] [place] MCHC 34.7 32.0 - 36.0 g/dL [facility] [place] Rdw 14.7 11.0 - 15.0 % [facility] [place] Platelets 301 140 - 400 Thousand/u L [facility] [place] MPV 10.0 7.5 - 12.5 fL [facility] [place] Neutrophils, abs 4,226 1,500 - 7,800 cells/uL [facility] [place] Lymphocytes, abs 2,311 850 - 3,900 cells/uL [facility] [place] Monocyte abs 511 200 - 950 cells/uL [facility] [place] Eosinophils, abs 50 15 - 500 cells/uL [facility] [place] Basophils, abs 101 0 - 200 cells/uL [facility] [place] Neutrophils 58.7 % [facility] [place] Lymphocyte pct 32.1 % [facility] [place] Monocytes 7.1 % [facility] [place] Eosinophils 0.7 % [facility] [place] Basophils 1.4 % [facility] [place] 12/16/2019 10:2 8 AM 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 12/16/2019 10:29 AM 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 Narrative Resulting Agency Comment Performing Organization Information: ?Site ID: [place] ?Name: [facility] ?Address: [address] [address] ?Director: Jason Buckner D.O., MPH Theodore Gresham MD LAB BLOOD ORDERABLES Final Result [facility] [place] * COPY(IES) SENT TO: (12/16/2019 10:28 AM 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) COPY(IES) SENT TO: [facility] Comment: ?[facility] - COPY TO ACCT ?[address] ?[place] [address] 12/16/2019 10:2 8 AM 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 12/16/2019 10:29 AM 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 Theodore Gresham MD LAB BLOOD ORDERABLES Final Result [facility] documented in this encounter Visit Diagnoses Not on filedocumented in this encounter Care Teams Pile Driver Engineer Relationship Specialty Start Date End Date Guero Colunga DO PCP - General Internal Medicine 03/22/19 04/18/23 Amber Montesinos, RN Print Line Tailer Transplant 11/17/19 documented as of this encounter
--- OUTSIDE RECORDS SUMMARY | 2024-10-28 06:24 | XMS_ITS | Encounter Summary ---
Author Organization [facility] Healthcare Address [address] [place] [address] Care Team Providers Care Safety Technician Name Role Phone Guero Colunga DO Primary Care Provider [phone] Amber Montesinos RN Unavailable [phone] Encounter Details Date Type Department Care Team (Late st Contact Info) Description 12/06/2019 Telephone [facility] Liver [address] [facility] [phone] [place] [address] Amber Montesinos, SHAILESH Social History Tobacco Use Types Packs/Day Years Used Date Smoking Tobacco: Never Smokeless Tobacco: Never Sex and Gender Information Value Date Recorded Sex Assigned at Not on file 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 Pt noted to have slightincrease in level with most recent PCR. Per pt, he is not having any diarrhea/no fevers reported. Let pt know that he should take the medication with food since that will help with the absorption of the medicine. Pt had previously only been taking it with milk. Will review what level is next week as patient may need a CMV resistance panel drawn. VAULT ATTENDANT documented in this encounter Plan of Treatment Scheduled Procedures Name Priority Associated Diagnoses Date/Ti me COLONOSCOPY Encounter for screening for colorectal cancer in high risk patient Family history of rectal cancer documented as of this encounter Visit Diagnoses Not on filedocumented in this encounter Care Teams Safety Technician Relationship Specialty Start Date End Date Guero Colunga DO PCP - General Internal Medicine 03/22/19 04/18/23 Amber Montesinos, SHAILESH Furnace And Wash Equipment Operator Transplant 11/17/19 documented as of this encounter
--- OUTSIDE RECORDS SUMMARY | 2024-10-28 06:24 | XMS_ITS | Encounter Summary ---
Author Organization [facility] Healthcare Address [address] [place] [address] Care Team Providers Care Stencil Printer Name Role Phone Guero Colunga DO Primary Care Provider [phone] Amber Montesinos RN Unavailable [phone] Encounter Details Date Type Department Care Team (Late st Contact Info) Description 12/06/2019 Telephone [facility] Transplant Liver [address] [facility] [id number] [place], [place] [id number] Amber Montesinos, SHAILESH Social History Tobacco Use Types Packs/Day Years Used Date Smoking Tobacco: Never Smokeless Tobacco: Never Sex and Gender Information Value Date Recorded Sex Assigned at Not on file Legal Sex Male 6:28 AM BROKERAGE PURCHASE AND SALE CLERK Gender Identity Not on file Sexual Orientation Straight 08/22/2021 9: 23 AM CDT documented as of this encounter Miscellaneous Notes * Telephone Encounter - Amber Vargas RN - 12/06/2019 10:49 AM BROKERAGE PURCHASE AND SALE CLERK CMV DNA PCR reviewed. Per patient, he missed one dose of his medication on Wednesday but has not missed any doses since. Will review labs with pharmD and hepatology today. Pt reports that he was very tired last week but has more energy this week. ERAGE PURCHASE AND SALE CLERK ERAGE PURCHASE AND SALE CLERK documented in this encounter Plan of Treatment Scheduled Procedures Name Priority Associated Diagnoses Date/Ti me COLONOSCOPY Encounter for screening for colorectal cancer in high risk patient Family history of rectal cancer documented as of this encounter Visit Diagnoses Not on filedocumented in this encounter Care Teams Stencil Printer Relationship Specialty Start Date End Date Guero Colunga DO PCP - General Internal Medicine 03/22/19 04/18/23 Amber Montesinos, RN Mason Helper Transplant 11/17/19 documented as of this encounter
--- OUTSIDE RECORDS SUMMARY | 2024-10-28 06:24 | XMS_ITS | Encounter Summary ---
Author Organization [facility] Healthcare Address [address] [place] [address] Care Team Providers Care Database Report Writer Name Role Phone Guero Colunga DO Primary Care Provider [phone] Amber Montesinos RN Unavailable [phone] Encounter Details Date Type Department Care Team (Late st Contact Info) Description 12/04/2019 Telephone [facility] Transplant Liver [address] [facility] [address] [phone] [place] [address] Amber Montesinos, SHAILESH Social History Tobacco Use Types Packs/Day Years Used Date Smoking Tobacco: Never Smokeless Tobacco: Never Sex and Gender Information Value Date Recorded Sex Assigned at Not on file Legal 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 Hernandez. Patient on treatment dose of valcyte of 900mg BID. Pt will remain on this dose until CMV PCR negative, no result yet from today. S SALES ASSOCIATE documented in this encounter Plan of Treatment Scheduled Procedures Name Priority Associated Diagnoses Date/Ti me COLONOSCOPY Encounter for screening for colorectal cancer in high risk patient Family history of rectal cancer documented as of this encounter Visit Diagnoses Not on filedocumented in this encounter Care Teams Database Report Writer Relationship Specialty Start Date End Date Guero Colunga DO PCP - General Internal Medicine 03/22/19 04/18/23 Amber Montesinos, RN Enrollment Management Vice President Transplant 11/17/19 documented as of this encounter
--- OUTSIDE RECORDS SUMMARY | 2024-10-28 06:24 | XMS_ITS | Encounter Summary ---
Author Organization [facility] Address [address] [place] [address] Care Team Providers Care Lining Setter Name Role Phone Guero Colunga Primary Care Provider [phone] Amber Montesinos RN Unavailable [phone] Reason for Visit * Reason Comments Fever Cough Encounter Details Date Type Department Care Team (Late st Contact Info) Description 12/21/2019 12:29 PM SCHOOL SUPERVISOR - 12/22/2019 1:54 PM SCHOOL SUPERVISOR Emergency [facility] Emergency Department [address] [place] [address] David Benjamin MD [address] [place] [address] Александр Brooke MD [address] [place] [address] José Brown MD [address] [place] [address] Yassine Larson MD [address] [place] [address] Cytomegalovirus infection, 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 Dx); Rhinovirus Discharge Disposition: Discharge to home or self care Social History Tobacco Use Types Packs/Day Years Used Date Smoking Tobacco: Never Smokeless Tobacco: Never Alcohol Use Standard Drinks/Week Comments Yes 0 (1 standard drink = 0.6 oz pur e alcohol) occassional Sex and Gender Information Value Date Recorded Sex Assigned at Not on file Legal Sex Male 6:28 AM SCHOOL SUPERVISOR Gender Identity Not on file Sexual Orientation Straight 08/22/2021 9: 23 AM CDT documented as of this encounter Last Filed Vital Signs Vital Sign Reading Time Taken Comments Blood Pressure 110/66 12/22/2019 1:30 PM SCHOOL SUPERVISOR Pulse 77 12/22/2019 1:30 PM SCHOOL SUPERVISOR Temperature 36.9 ??C (98.4 ??F) 12/22/2019 1:30 PM CS T Respiratory Rate 18 12/22/2019 1:30 PM SCHOOL SUPERVISOR Oxygen Saturation 97% 12/22/2019 1:30 PM SCHOOL SUPERVISOR Inhaled Oxygen Concentration - - Weight 59 kg (130 lb) 12/21/2019 11:07 AM SCHOOL SUPERVISOR Height 172.7 cm (5' 8 ) 12/21/2019 11:07 AM SCHOOL SUPERVISOR Body Mass Index 19.77 12/21/2019 11:07 AM SCHOOL SUPERVISOR documented in this encounter Discharge Diagnoses Diagnosis Acute upper respiratory infection, unspecified - ACUTE UPPER RESPIRATORY INFECTION, UNSPECIFIED Cytomegaloviral disease, unspecified (HCC) - CYTOMEGALOVIRAL DISEASE, UNSPECIFIED Localized enlarged lymph nodes - LOCALIZED ENLARGED LYMPH NODES 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 ?? Patient reports that he developed a sore throat, fever, and cough productive of yellow sputum 2 days ago. He states that he was febrile to 100 yesterday morning, went to work for half a day, and thenfelt ill and returned home. Later in the day he was febrile to 102. Patient reports that he called his liver transplant physician who advised him to present to the hospital. Patient denies any hemoptysis, headaches, dizziness, CP, SOB, abdominal pain, n/v/d. ?? Of note, patient noted to have CMV viremia on 11/08/19, with titer of 508. ??Following this his prophylactic valgancyclovir was increased to treatment dose of 900mg BID. Titers have continued to increase: 530 on 12/02, 626 on 12/09, 940 on 12/16. ?? Of note, patient had a recent hospitalization 10/10/19-10/13/19 for treatment of pneumonia. He was treated with empiric antibiotics and had RVP positive for adenovirus and parainfluenza virus. ?? On presentation to the ED, the patient had VS T 37.6, HR 96, RR 16, BP 109/59, SpO2 97% on room air. Labs were notable for WBC count of 6.5. RVP positive for rhinovirus. Patient treated with empiric vanc/cefe, valganciclovir, IVF and tylenol. Hospital Course: Upper respiratory infection Patient presented with report of 2 days history of sore throat, cough productive of yellow sputum, and malaise. RVP in ED positive for rhinovirus, presenting likely etiology for patient's illness. CXR with pulmonary nodule in the right mid-lung. Patient was treated prophylactically for pneumonia given immunocompromised status with vancomycin and cefepime. Patient seen by transplant ID, they recommended ophtho evaluation to r/o CMV retinitis (see below). ??Also recommended collecting bartonella serologies, toxoplasma IgG/IgM, and EBV PCR given his exposures and immunocompromised status, these labs are pending. ??Histoplasma serology and urinary antigen were also collected. ID will follow up on the results of these tests as an outpatient. ?? Cytomegalovirus (CMV) viremia (CMS/HCC) Patient noted to have??CMV viremia on 11/08/19, with??titer of??508. ??Following this his??prophylactic valgancyclovir was increased to treatment dose of 900mg BID. ??Titers have continued to increase:530 on 12/02, 626 on 12/09, 940 on 12/16. Patient was evaluated by transplant ID who recommended evaluation by ophthalmolgy to rule out MCV retinitis. Ophthalmology evaluated patient and did not appreciate any signs of retinitis. Patient's valgancyclovir was continued. ?? Lymphadenopathy BL cervical and postauricular LAD palpable on physical exam, these have been present for several weeks. Patient had axillary lymph node biopsy performed 10/13/19 which showed organized lymphoid tissue with reactive features. No clonal B-cell or immunophenotypically abnormal T-cell population identified on flow cytometry. There was no EBV RNA detected by in situ hybridization. Patient has follow up scheduled with Dr. Gillespie in December 2019. ?? 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 Gillespie. PET 07/13/19: Interval increase in size of diffuse lymphadenopathy both above and below diaphragm, considerably worse than last scan on 01/23/19. Patient has follow up appointment scheduled with Dr. Gillespie in December 2019. ?? History of liver transplant (CMS/HCC) Patient follows with Dr. Gresham. Patient's tacrolimus 0.5mg BID and valcyte 900mg BID were continued. Patient was briefly discussed with hepatology service, who requested we collect a CMV DNA prior to discharge. Active Issues Requiring Follow-up: n/a Test Results Pending at Discharge: Pending Labs Order Current Status Bartonella anitbody panel In process Nadine borrego virus (EBV) PCR, quantitative Blood In process Filamentous fungus culture, blood Blood In process Blood culture Blood Peripheral Preliminary result Blood culture Blood Peripheral Preliminary result Operative Procedures Performed: Other Procedures: n/a Pertinent Test Results: n/a Discharge Details Physical Exam at Discharge: Discharge Condition: fair Pulse: 73 Resp: 18 BP: 102/53 Temp: 38 ??C (100.4 ??F) Weight: 59 kg (130 lb) Pertinent Exam Findings at Discharge: Constitutional:?NAD, well developed, well nourished Eyes:?PERRL, EOMI, anicteric ENT:?No oral thrush, NCAT, oropharynx normal, moist mucus membranes Lungs:?Clear to auscultation in all lung more, unlabored, trachea midline Cardiovascular:?RRR, normal S1 and S2, no murmurs, no JVD GI:?Soft, non- tender, non-distended, bowel sounds +, no organomegaly Skin:?No new rashes, lesions or bruises Extremities:?Normal without edema or cyanosis Lymph:?Prominent posterior auricular LAD??bilaterally; superficial cervical adenopathy and posterior cervical adenopathy also present. Neurologic:?AOx4, CNII-XII intact, normal strength and sensation Psychiatric:?Normal affect and mood Discharge Disposition: Code Status at Discharge: Full Code Discharge Instructions: You should continue taking your valcyte at a dose of 900mg twice daily. You should attend a follow-up appointment with Infectious Disease on 12/25/2019 at 9:00am to follow up with the results of blood tests that were collected during this hospitalization. You should attend your previously scheduled appointment with Dr. Gillespie on 01/17/2020. Discharge Medications: Current Medications TAKE these medications * tacrolimus 0.5 mg capsule Take 1 capsule (0.5 mg total) by mouth 2 (two) times a day Commonly known as: PROGRAF This medication is very important: It prevents organ rejection. * tacrolimus 0.5 mg capsule Commonly known as: PROGRAF This medication is very important: It prevents organ rejection. acyclovir 400 mg tablet Take 450 mg by mouth every 4 (four) hours while awake Commonly known as: ZOVIRAX This medication is very important: It prevents dangerous infection. valGANciclovir 450 mg tablet Take 2 tablets (900 mg total) by mouth 2 (two) times a day For: Other (complete free text reason below), CMV Viremia Commonly known as: VALCYTE This medication is very important: It prevents dangerous infection. * This list has 2 medication(s) that are the same as other medications prescribed for you. Read the directions carefully, and ask your doctor or other care provider to review them with you. Outpatient Follow-Up: Future Appointments Date Time Provider Department Center 12/25/2019 9:00 AM Jil Duncan MD ID TABEX 100 [facility] Inf Dis 01/17/2020 7:00 AM LAB, CAM 7 ONC ONC LAB CAM7 [facility] LAB 01/17/2020 8:00 AM Anita Gillespie MD ONC CAM7 [facility] Oncology 10/02/2020 8:00 AM [facility] Liver TXP [facility] Cosigned by Boston Palmer MD at 12/22/2019 4:26 PM SCHOOL SUPERVISOR OL SUPERVISOR OL SUPERVISOR documented in this encounter Discharge Instructions * Discharge Instructions* Melia Abbott PA - 12/22/2019 1:26 PM SCHOOL SUPERVISOR Keep Dr. Haed appointment on 01/17/20 Keep ID appointment on 12/25/19 at 9:00 am Continue to take Valcyte 900 mg twice a day.. OL SUPERVISOR OL SUPERVISOR * Attachments The following attachments cannot be sent through Care Everywhere. * Acquired Cytomegalovirus (AfterCare(R) Instructions(ER/ED)) (Kittitian) * BK Virus Infection (General Information) (K[place]itian) documented in this encounter Medications at Time of Discharge acyclovir (ZOVIRAX) 400 mg tablet Take 450 mg by mouth every 4 (four) hours while awake 01/17/2020 tacrolimus (PROGRAF) 0.5 mg capsuleIndication s:History of liver transplant (CMS/HCC) (HCC) Take 1 capsule (0.5 mg total) by mouth 2 (two) times a day 180 capsule 3 02/13/2019 03/20/2020 tacrolimus (PROGRAF) 0.5 mg capsule 10/13/2019 03/20/2020 valGANciclovir (VALCYTE) 450 mg tabletIndications :Other (complete free text reason below),CMV Viremia Take 2 tablets (900 mg total) by mouth 2 (two) times a day 28 tablet 12/21/2019 12/28/2019 documented as of this encounter Discharge Disposition Disposition Code Departure Means Destination Discharge to home or self care documented in this encounter Progress Notes * Sussy Stone MD - 12/22/2019 9:54 AM CST Daily Progress Note Name: Beka Nichols Today: December 22, 2019 : 1995 Age: 24 y.o. male Admit: 12/21/2019 Bed: [facility] OBS-09/OBS-09 Subjective Chief complaint: fever, cough Interval History: NAEON, VSS overnight, patient has been satting 92-95% overnight. Patient reports that he feels much better this morning, still has a productive cough but denies subjective fevers. Patient seen by transplant ID yesterday, they recommended ophtho evaluation to r/o CMV retinitis. Also recommended collecting bartonella serologies, toxoplasma IgG/IgM, and EBV PCR given his exposures and immunocompromised status, these labs are pending. They will also arrange follow-up appointmentfor the patient. Will also plan to collect histoplasma serology and urinary antigen. Likely discharge today with outpatient f/u for ID, hepatic transplant, and oncology. Objective Medications: Scheduled: [START ON 12/23/2019] tacrolimus, 0.5 mg, oral, Q12H PIPPA valGANciclovir, 900 mg, oral, BID Infusions: Lactated Ringer's, 20 mL/hr, Last Rate: 20 mL/hr (12/22/19 0226) PRN: Vitals: 24hr Min/Max: Temp Min: 37.6 ??C (99.7 ??F) Max: 38.1 ??C (100.6 ??F) Pulse Min: 67 Max: 96 BP Min: 92/48 Max: 110/66 Resp Min: 15 Max: 18 SpO2 Min: 92 % Max: 98 % Most Recent: Vitals: 12/22/19 0800 BP: 95/50 Pulse: 72 Resp: 15 Temp: SpO2: 94% Intake/Output Summary (Last 24 hours) at 12/22/2019 0924 Last data filed at 12/21/2019 1742 Gross per 24 hour Intake 1220 ml Output -- Net 1220 ml Physical Exam Constitutional: NAD, well developed, well nourished Eyes: PERRL, EOMI, anicteric ENT: No oral thrush, NCAT, oropharynx normal, moist mucus membranes Lungs: Clear to auscultation in all lung more, unlabored, trachea midline Cardiovascular: RRR, normal S1 and S2, no murmurs, no JVD GI: Soft, non-tender, non-distended, bowel sounds +, no organomegaly Skin: No new rashes, lesions or bruises Extremities: Normal without edema or cyanosis Lymph: Prominent posterior auricular LAD bilaterally; superficial cervical adenopathy and posteriorcervical adenopathy also present. Neurologic: AOx4, CNII-XII intact, normal strength and sensation Psychiatric: Normal affect and mood Lab/Diagnostic Review: Recent Results (from the past 36 hour(s)) Comprehensive metabolic panel Collection Time: 12/21/19 1:49 PM Result Value Ref Range Sodium 137 135 - 145 mmol/L Potassium, pl 4.1 3.3 - 4.9 mmol/L Chloride 103 97 - 110 mmol/L CO2 25 22 - 32 mmol/L Anion gap 9 2 - 15 mmol/L BUN 10 8 - 25 mg/dL Creatinine 0.81 0.80 - 1.30 mg/dL Glucose 95 70 - 199 mg/dL Calcium 8.8 8.5 - 10.3 mg/dL Bilirubin, total 0.8 0.1 - 1.2 mg/dL Protein, pl 6.0 (L) 6.5 - 8.5 g/dL Albumin 3.7 3.5 - 5.0 g/dL Alk phos 459 (H) 40 - 130 Units/L ALT 57 (H) 7 - 55 Units/L AST 55 (H) 10 - 50 Units/L CBC with auto differential Collection Time: 12/21/19 1:49 PM Result Value Ref Range WBC 6.5 3.8 - 9.9 K/cumm Hgb 14.0 13.0 - 17.5 g/dL Hct 40.0 38.9 - 50.3 % Plt 252 150 - 400 K/cumm MPV 9.7 9.1 - 12.3 fL RBC 4.30 4.30 - 5.80 M/cumm MCV 93.0 81.3 - 96.4 fL MCH 32.6 27.1 - 33.3 pg MCHC 35.0 32.3 - 35.7 g/dL RDW CV 14.8 11.1 - 14.9 % RDW SD 51.0 (H) 35.7 - 48.1 fL NRBC abs 0.00 0.00 - 0.01 K/cumm Sepsis Lactate w/ Reflex Collection Time: 12/21/19 1:49 PM Result Value Ref Range Sepsis Lactate 1.2 0.7 - 2.0 mmol/L Blood culture Blood Peripheral Collection Time: 12/21/19 1:49 PM Result Value Ref Range Report Preliminary Report: No growth to date. Blood culture Blood Peripheral Collection Time: 12/21/19 1:49 PM Result Value Ref Range Report Preliminary Report: No growth to date. Respiratory pathogen PCR Nasopharyngeal Collection Time: 12/21/19 1:49 PM Result Value Ref Range Adenovirus DNA Not Detected Not Detected Coronavirus 229E RNA Not Detected Not Detected Coronavirus HKU1 RNA Not Detected Not Detected Coronavirus NL63 RNA Not Detected Not Detected Coronavirus OC43 RNA Not Detected Not Detected Metapneumovirus RNA Not Detected Not Detected Rhinovirus/Enterovirus RNA Detected (A) Not Detected Influenza A RNA Not Detected Not Detected Influenza B RNA Not Detected Not Detected Parainfluenza Virus 1 RNA Not Detected Not Detected Parainfluenza Virus 2 RNA Not Detected Not Detected Parainfluenza Virus 3 RNA Not Detected Not Detected Parainfluenza Virus 4 Not Detected Not Detected RSV RNA Not Detected Not Detected Bordetella pertussis DNA Not Detected Not Detected Chlamydophila pneumoniae DNA Not Detected Not Detected Mycoplasma pneumoniae DNA Not Detected Not Detected Bordetella parapertussis DNA Not Detected Not Detected Manual Differential Collection Time: 12/21/19 1:49 PM Result Value Ref Range Differential Manual Cells Counted 115 Neutrophil abs 2.4 1.7 - 6.5 K/cumm Imm gran abs 0.1 0.0 - 0.1 K/cumm Lymphocyte abs 3.4 (H) 0.8 - 3.3 K/cumm Monocyte abs 0.5 0.2 - 0.8 K/cumm Basophil abs 0.1 0.0 - 0.1 K/cumm Neutrophil pct 36.5 % Lymphocyte pct 50.5 % Monocyte pct 7.8 % Basophil pct 1.7 % Neutrophilic metamyelocytes 0.9 % Variant lymphs 2.6 % Vacuolation Present (A) RBC morphology Normal POC Blood Gas and Chemistries, Arterial - Collection Time: 12/21/19 2:09 PM Result Value Ref Range Lactate, POC 1.2 0.7 - 2.2 mmol/L Urinalysis reflex to microscopic and culture Urine Collection Time: 12/21/19 3:13 PM Result Value Ref Range Color, ur Yellow Yellow Clarity, ur Clear Clear Specific gravity, ur 1.026 (H) 1.010 - 1.025 pH, urine 6 Protein, ur ql Negative Negative Glucose, ur ql Negative Negative Ketones, ur Negative Negative Bilirubin, ur Negative Negative Blood, ur Negative Negative Urobilinogen, ur 4.0 (A) <2.0 mg/dL Nitrite, ur Negative Negative Leukocyte esterase, ur Negative Negative UA reflex comment Reflex to microscopic UA will be performed. Urinalysis, microscopic only Collection Time: 12/21/19 3:13 PM Result Value Ref Range WBC, ur 0-5 0 - 5 /HPF RBC, ur 0-2 0 - 2 /HPF Bacteria, ur Trace (A) Mucous, ur Present (A) Culture Reflex Comment Reflex conditions for urine culture (WBC >10) not met. I have reviewed the laboratory results. Imaging Results: ECG 12 lead David Benjamin MD 12/21/2019 2:01 PM ECG 12 lead Date/Time: 12/21/2019 2:00 PM Performed by: David Benjamin MD Authorized by: Nancy Fischer MD Rate: ECG rate: 82 ECG rate assessment: normal Rhythm: Rhythm: sinus rhythm Ectopy: Ectopy: none QRS: QRS axis: Normal QRS intervals: Normal Conduction: Conduction: normal ST segments: ST segments: Normal T waves: T waves: inverted Inverted: V1, V2 and V3 Previous ECG: Previous ECG: Unavailable Interpretation: Interpretation: non-specific Recommended Follow-up: Recommended follow up: further workup in the ED XR Chest Pa Lateral 2 Vw Narrative: EXAMINATION: 2 view chest radiograph Impression: 2 views of the chest are compared to radiograph dated 10/10/2019. Numerous surgical clips are redemonstrated in the right hemiabdomen and left upper quadrant. Surgical clips are also noted in the right neck. Previously seen pulmonary nodule in the right midlung is decreased in size compared to prior study. A new pulmonary nodule is seen in the left midlung measuring 6 mm. Known pulmonary nodules are better evaluated on CT. No pneumothorax or pleural effusion is seen. No pulmonary edema is seen. Hilar lymphadenopathy is redemonstrated. The heart is normal in size. Electronically signed by: Sofia Melissa Arevalo, M.D. I have independently reviewed and interpreted CXR, ECG Assessment/Plan Upper respiratory infection Assessment & Plan Patient reports 2 days history of sore throat, cough productive of yellow sputum, and malaise. RVPin ED positive for rhinovirus, presenting possible etiology for patient's illness. CXR with pulmonary nodule in the right mid-lung, treating prophylactically for pneumonia given immunocompromised status. Patient seen by transplant ID , they recommended ophtho evaluation to r/o CMV retinitis. Also recommended collecting bartonella serologies, toxoplasma IgG/IgM, and EBV PCR given his exposures andimmunocompromised status, these labs are pending. They will also arrange follow-up appointment for the patient. -supportive care -droplet precautions -continue vanc/cefe for now -f/u bartonella serologies, toxoplasma IgG/IgM, and EBV PCR -collect histoplasma serology and urinary antigen Cytomegalovirus (CMV) viremia ([facility]/HCC) Assessment & Plan Patient noted to have CMV viremia on 11/08/19, with titer of 508. ??Following this his prophylactic valgancyclovir was increased to treatment dose of 900mg BID. Titers have continued to increase: 530 on 12/02, 626 on 12/09, 940 on 12/16. -f/u CMV DNA -continue valgancyclovir 900mg BID Lymphadenopathy Assessment & Plan BL cervical LAD palpable on physical exam, these have been present for several weeks -patient plans to follow-up with??Dr. 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 Gillespie. PET 07/13/19: Interval increase in size of diffuse lymphadenopathy both above and below diaphragm, considerably worse than last scan on 01/23/19. -defer management to outpatient physician History of liver transplant ([facility]) Assessment & Plan Follows with Dr. Gresham -c/w tacro 0.5mg BID -c/w valcyte 900mg BID Cosigned by Boston Palmer MD at 12/22/2019 4:41 PM SCHOOL SUPERVISOR OL SUPERVISOR OL SUPERVISOR Associated attestation - Boston Palmer MD - 12/22/2019 4:41 PM SCHOOL SUPERVISOR I have seen and examined the patient on 12/22/19. I agree with the findings and plan of care as documented in the resident's/fellow's note. documented in this encounter H&P Notes * Sussy Stone MD - 12/21/2019 6:40 PM CST History and Physical Name: Beka Nichols Today: December 21, 2019 : 1995 Age: 24 y.o. male Subjective The patient is a 24 y.o. male with chief complaint of fever and cough productive of yellow sputum. 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 Patient reports that he developed a sore throat, fever, and cough productive of yellow sputum 2 days ago. He states that he was febrile to 100 yesterday morning, went to work for half a day, and thenfelt ill and returned home. Later in the day he was febrile to 102. Patient reports that he called his liver transplant physician who advised him to present to the hospital. Patient denies any hemoptysis, headaches, dizziness, CP, SOB, abdominal pain, n/v/d. Of note, patient noted to have CMV viremia on 11/08/19, with titer of 508. Following this his prophylactic valgancyclovir was increased to treatment dose of 900mg BID. Titers have continued to increase: 530 on 12/02, 626 on 12/09, 940 on 12/16. Of note, patient had a recent hospitalization 10/10/19-10/13/19 for treatment of pneumonia. He was treated with empiric antibiotics and had RVP positive for adenovirus and parainfluenza virus. On presentation to the ED, the patient had VS T 37.6, HR 96, RR 16, BP 109/59, SpO2 97% on room air. Labs were notable for WBC count of 6.5. RVP positive for rhinovirus. Patient treated with empiric vanc/cefe, valganciclovir, IVF and tylenol. Past Medical History: Diagnosis Date ??? CMV [...] BIOPSY LYMPH NODE SUPERFICIAL N/A 10/13/2019 No current facility-administered medications on file prior to encounter. Current Outpatient Medications on File Prior to Encounter Medication Sig ??? acyclovir (ZOVIRAX) 400 mg tablet Take 450 mg by mouth every 4 (four) hours while awake ??? tacrolimus (PROGRAF) 0.5 mg capsule Take 1 capsule (0.5 mg total) by mouth 2 (two) times a day ??? tacrolimus (PROGRAF) 0.5 mg capsule ??? valGANciclovir (VALCYTE) 450 mg tablet Take 2 tablets (900 mg total) by mouth 2 (two) times a day ??? [DISCONTINUED] valGANciclovir (VALCYTE) 450 mg tablet Take 2 tablets (900 mg total) by mouth 2 (two) times a day No Known Allergies Social History Tobacco Use [...] by TW Conv) ??? Anesthesia problems Other Family History reviewed and non-contributory. Review of Systems All other systems were reviewed and are negative except for malaise, fatigue, cough. Objective Vitals: 24hr Min/Max: Temp Min: 37.6 ??C (99.7 ??F) Max: 38.1 ??C (100.6 ??F) Pulse Min: 75 Max: 96 BP Min: 103/59 Max: 110/66 Resp Min: 16 Max: 16 SpO2 Min: 93 % Max: 97 % Most Recent Vitals: Vitals: 12/21/19 1444 BP: Pulse: Resp: Temp: 38 ??C (100.4 ??F) SpO2: Intake/Output Summary (Last 24 hours) at 12/21/2019 1708 Last data filed at 12/21/2019 1537 Gross per 24 hour Intake 20 ml Output -- Net 20 ml Physical Exam Constitutional: NAD, well developed, well nourished Eyes: PERRL, EOMI, anicteric ENT: NCAT, oropharynx normal, moist mucus membranes Lungs: Clear to auscultation in all lung more, unlabored, trachea midline Cardiovascular: RRR, normal S1 and S2, no murmurs, no JVD GI: Soft, non-tender, non-distended, bowel sounds +, no organomegaly Skin: No new rashes, lesions or bruises Extremities: Normal without edema or cyanosis Lymph: Prominent LAD behind ears bilaterally Neurologic: AOx4, CNII-XII intact, normal strength and sensation Psychiatric: Normal affect and mood Lab/Diagnostic Review: Recent Results (from the past 36 hour(s)) Comprehensive metabolic panel Collection Time: 12/21/19 1:49 PM Result Value Ref Range Sodium 137 135 - 145 mmol/L Potassium, pl 4.1 3.3 - 4.9 mmol/L Chloride 103 97 - 110 mmol/L CO2 25 22 - 32 mmol/L Anion gap 9 2 - 15 mmol/L BUN 10 8 - 25 mg/dL Creatinine 0.81 0.80 - 1.30 mg/dL Glucose 95 70 - 199 mg/dL Calcium 8.8 8.5 - 10.3 mg/dL Bilirubin, total 0.8 0.1 - 1.2 mg/dL Protein, pl 6.0 (L) 6.5 - 8.5 g/dL Albumin 3.7 3.5 - 5.0 g/dL Alk phos 459 (H) 40 - 130 Units/L ALT 57 (H) 7 - 55 Units/L AST 55 (H) 10 - 50 Units/L CBC with auto differential Collection Time: 12/21/19 1:49 PM Result Value Ref Range WBC 6.5 3.8 - 9.9 K/cumm Hgb 14.0 13.0 - 17.5 g/dL Hct 40.0 38.9 - 50.3 % Plt 252 150 - 400 K/cumm MPV 9.7 9.1 - 12.3 fL RBC 4.30 4.30 - 5.80 M/cumm MCV 93.0 81.3 - 96.4 fL MCH 32.6 27.1 - 33.3 pg MCHC 35.0 32.3 - 35.7 g/dL RDW CV 14.8 11.1 - 14.9 % RDW SD 51.0 (H) 35.7 - 48.1 fL NRBC abs 0.00 0.00 - 0.01 K/cumm Sepsis Lactate w/ Reflex Collection Time: 12/21/19 1:49 PM Result Value Ref Range Sepsis Lactate 1.2 0.7 - 2.0 mmol/L POC Blood Gas and Chemistries, Arterial - Collection Time: 12/21/19 2:09 PM Result Value Ref Range Lactate, POC 1.2 0.7 - 2.2 mmol/L Urinalysis reflex to microscopic and culture Urine Collection Time: 12/21/19 3:13 PM Result Value Ref Range Color, ur Yellow Yellow Clarity, ur Clear Clear Specific gravity, ur 1.026 (H) 1.010 - 1.025 pH, urine 6 Protein, ur ql Negative Negative Glucose, ur ql Negative Negative Ketones, ur Negative Negative Bilirubin, ur Negative Negative Blood, ur Negative Negative Urobilinogen, ur 4.0 (A) <2.0 mg/dL Nitrite, ur Negative Negative Leukocyte esterase, ur Negative Negative UA reflex comment Reflex to microscopic UA will be performed. Urinalysis, microscopic only Collection Time: 12/21/19 3:13 PM Result Value Ref Range WBC, ur 0-5 0 - 5 /HPF RBC, ur 0-2 0 - 2 /HPF Bacteria, ur Trace (A) Mucous, ur Present (A) Culture Reflex Comment Reflex conditions for urine culture (WBC >10) not met. I have reviewed the laboratory results. Imaging Results: ECG 12 lead David Benjamin MD 12/21/2019 2:01 PM ECG 12 lead Date/Time: 12/21/2019 2:00 PM Performed by: David Benjamin MD Authorized by: Nancy Fischer MD Rate: ECG rate: 82 ECG rate assessment: normal Rhythm: Rhythm: sinus rhythm Ectopy: Ectopy: none QRS: QRS axis: Normal QRS intervals: Normal Conduction: Conduction: normal ST segments: ST segments: Normal T waves: T waves: inverted Inverted: V1, V2 and V3 Previous ECG: Previous ECG: Unavailable Interpretation: Interpretation: non-specific Recommended Follow-up: Recommended follow up: further workup in the ED XR Chest Pa Lateral 2 Vw Narrative: EXAMINATION: 2 view chest radiograph Impression: 2 views of the chest are compared to radiograph dated 10/10/2019. Numerous surgical clips are redemonstrated in the right hemiabdomen and left upper quadrant. Surgical clips are also noted in the right neck. Previously seen pulmonary nodule in the right midlung is decreased in size compared to prior study. A new pulmonary nodule is seen in the left midlung measuring 6 mm. Known pulmonary nodules are better evaluated on CT. No pneumothorax or pleural effusion is seen. No pulmonary edema is seen. Hilar lymphadenopathy is redemonstrated. The heart is normal in size. Electronically signed by: Sofia Arevalo M.D. I have independently reviewed and interpreted CXR, ECG Assessment/Plan Upper respiratory infection Assessment & Plan Patient reports 2 days history of sore throat, cough productive of yellow sputum, and malaise. RVP in ED positive for rhinovirus, presenting possible etiology for patient's illness. CXR with pulmonary nodule in the right mid-lung, treating prophylactically for pneumonia given immunocompromised status -supportive care -droplet precautions -continue vanc/cefe for now Cytomegalovirus (CMV) viremia (CMS/HCC) Assessment & Plan Patient noted to have CMV viremia on 11/08/19, with titer of 508. ??Following this his prophylactic valgancyclovir was increased to treatment dose of 900mg BID. Titers have continued to increase: 530 on 12/02, 626 on 12/09, 940 on 12/16. -f/u CMV DNA -continue valgancyclovir 900mg BID Lymphadenopathy Assessment & Plan BL cervical LAD palpable on physical exam, these have been present for several weeks -patient plans to follow-up with??Dr. 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 Gillespie. PET 07/13/19: Interval increase in size of diffuse lymphadenopathy both above and below diaphragm, considerably worse than last scan on 01/23/19. -defer management to outpatient physician History of liver transplant (CMS/HCC) Assessment & Plan Follows with Dr. Gresham -c/w tacro 0.5mg BID -c/w valcyte 900mg BID Cosigned by Boston Palmer MD at 12/22/2019 4:38 PM SCHOOL SUPERVISOR OL SUPERVISOR OL SUPERVISOR Associated attestation - Boston Palmer MD - 12/22/2019 4:38 PM SCHOOL SUPERVISOR I have seen and examined the patient on 12/22/19. I agree with the findings and plan of care as documented in the resident's/fellow's note. Patient does not appear acutely ill and wishes to return home. CXR without focal infiltrate. Exam remarkable for shotty posterior cervical lymphadenopathy. Agree with close follow-up of low-grade CMV viremia (along with rechecking EBV DNA in light of previoushistory of PTLD). Superimposed acute illness attributable to rhinovirus infection. 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 Presents to the ED with fever, sore throat, cough x2days, with RVP + for rhinovirus. Per chart review, patient was noted to have CMV viremia on 11/08/19, with titer of 508. ??Following this his prophylactic valgancyclovir was increased to treatment dose of 900mg BID. Titers have continued to increase: 530 on 12/02, 626 on 12/09, 940 on 12/16. Patient's mom thinks his R eye has been slightly red and watery since last night, and now both eyesare slightly red and watery today. No other ocular complaints. Patient denies any decreased vision,eye pain, diplopia, floaters or flashes of light. Review of Systems: Unless noted in HPI all other systems negative. Past Ocular History: Denies any history of previous ocular disease, ocular trauma, or ocular surgery. Uses no eye drops on a regular basis. Past Medical History: Diagnosis Date ??? CMV [...] GUIDED BIOPSY LYMPH NODE SUPERFICIAL N/A 10/13/2019 Family History Problem Relation Age of Onset [...] Comment: occassional ??? Drug use: Not Currently Scheduled Medications Medication Dose Route Frequency ??? tacrolimus (PROGRAF) capsule 0.5 mg 0.5 mg oral Q12H PIPPA ??? valGANciclovir (VALCYTE) tablet 900 mg 900 mg oral BID Physical Exam: Vitals: 12/22/19 0800 BP: 95/50 Pulse: 72 Resp: 15 Temp: SpO2: 94% Base Eye Exam Visual Acuity (Snellen - Linear) Right Left Near sc 20/20 20/20 Tonometry (Tonopen, 9:57 AM) Right Left Pressure 14 15 Pupils Pupils Dark Light Shape React APD Right PERRL 4 2 Round Brisk None Left PERRL 4 2 Round Brisk None Visual More Right Left Full Full Extraocular Movement Right Left Full Full Slit Lamp and Fundus Exam External Exam Right Left External Normal Normal No preauricular LAD Slit Lamp Exam Right Left Lids/Lashes Normal, no follicles Normal, no follicles Conjunctiva/Sclera White and quiet White and quiet Cornea Clear Clear Anterior Chamber Deep and formed Deep and formed Iris Round and reactive Round and reactive Lens Clear Clear Fundus Exam Right Left Vitreous Normal Normal Disc Slightly more pallorous than OS, with area of cupping superotemporally Normal Macula Flat, attached, no lesions Flat, attached, no lesions Vessels Normal course and caliber Normal couse and caliber Periphery Attached 360, no lesions Attached 360, no lesions Lab/Radiology/Diagnostic Review: Lab Results Component Value Date WBC 6.5 12/21/2019 HGB 14.0 12/21/2019 HCT 40.0 12/21/2019 MCV 93.0 12/21/2019 LABPLAT 252 12/21/2019 Lab Results Component Value Date GLUCOSE 95 12/21/2019 CALCIUM 8.8 12/21/2019 SODIUM 137 12/21/2019 POTASSIUM 4.1 12/21/2019 CO2 25 12/21/2019 CHLORIDE 103 12/21/2019 BUNSER 10 12/21/2019 CREATININE 0.81 12/21/2019 Xr Chest Pa Lateral 2 Vw Result Date: 12/21/2019 2 views of the chest are compared to radiograph dated 10/10/2019. Numerous surgical clips are redemonstrated in the right hemiabdomen and left upper quadrant. Surgical clips are also noted in the right neck. Previously seen pulmonary nodule in the right midlung is decreased in size compared to prior study. A new pulmonary nodule is seen in the left midlung measuring 6 mm. Known pulmonary nodules are better evaluated on CT. No pneumothorax or pleural effusion is seen. No pulmonary edema is seen.Hilar lymphadenopathy is redemonstrated. The heart is normal in size. Electronically signed by: Sofia Arevalo M.D. ASSESSMENT/PLAN AND RECOMMENDATIONS: 1. CMV viremia, without ocular involvement -- Denies ocular complaints. VA 20/20 OU, no suspicious lesions on dilated fundus exam -- No evidence of ocular involvement at this time -- Return precautions for new flashes/floaters, decreased vision. 2. Possible viral conjunctivitis -- Patient's mom says his eyes are slightly more watery and red than usual (first right then both eyes). No significant injection on exam, no follicles or preauricular LAD. Symptoms likely 2/2 congestion and rhinorrhea from viral URI 3. 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 Recommend outpatient follow up with OCT and HVF. -- Visual acuity excellent at 20/20 OU, no visual field defect -- Patient normally follows with [facility] and says they have told him about this in the past. Says he has an appointment scheduled with them January 02 Ophthalmology follow-up: Please make a clinic appointment to follow up as needed. [facility] can be reached at [phone]. Ria Gunter MD 12/22/2019 10:54 AM Ophthalmology Please page the ophthalmology resident on-call via [facility] with any questions. This consult is NOT complete without attending attestation and/or cosign. Cosigned by Guicho Robles MD at 12/22/2019 1:13 PM SCHOOL SUPERVISOR OL SUPERVISOR OL SUPERVISOR Associated attestation - Guicho Robles MD - 12/22/2019 1:13 PM SCHOOL SUPERVISOR I have seen, examined, and discussed the patient with the resident. I agree with the above assessment and plan, with the following changes/additions: none. Guicho Robles MD 12/22/2019 1:12 PM * Gilbert Hammond MD - 12/21/2019 7:12 PM CSTAssociated Order(s): IP CONSULT TO INFECTIOUS DISEASES Infectious Disease Initial Consult Note Infectious Disease Team: Transplant Contact Information: Please see EPIC Treatment Team listing for up-to-date contact information. Requesting Physician: José Brown MD Reason for Consult: Diagnostic and treatment recommendations, as well as assistance with follow up care for fever with CMV viremia Subjective Chief Complaint: fever HPI: Beka Nichols is a 24 yo male with PMH of s/p orthotopic liver transplant at age 4 (03/1999) due to autoimmune hepatitis on tacrolimus complicated by refractory ITP s/p splenectomy 2012, EBV positive PTLD s/p chemotherapy 2016 with recurrent lymphadenopathy 12/2018 biopsy with possible early PTLD who presents with fever and cough for 2 days. Patient was recently admitted 10/10-10/2019 with increased adenopathy with fever and new night sweats. Work up was positive for adenovirus and parainfluenza with possible RML pneumonia. Inpatient PETshowed increase in size and avidity of diffuse adenopathy relative to 01/03/2019, as well as bilateral hypermetabolic pulmonary opacities. He underwent biopsy of a left axillary lymph node on October 13. The pathology showed organized lymphoid tissue with reactive features. No clonal B-cell or immunophenotypically abnormal T-cell population was identified on flow. JAKOB negative. For pneumonia, he was treated with azithromycin, cefepime, and vancomycin x2 days and then completed a course of levofloxacin. Patient also had peripheral blood CMV PCR detectable at 508 on 11/08/2019. The most recent titer prior to this point, in July 2019, was negative. Dr. Gresham instructed Mr. Nichols to increase his valacyclovir to 900 b.i.d. since 11/13. Resistance was sent. He was followed up in oncology clinicon 11/22/2019 when he felt overall well. CMV VL was <137. However, his VL continues to increase despite treatment. On 12/02 was 530. 12/09: 626, 12/16: 940. CMV resistance testing was sent 12/12. Two days prior to presentation, patient began to have sore throat, productive cough, myalgia and fatigue. On the next day he developed fever. No shortness of breath, abdominal pain, diarrhea, nausea,vomiting. Just today he also has dysuria, no flank pain.His appetite is poor since he has had fever. Max temp at home was 102. He lives in [place] with his mother and brother. 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 He denies smoking. He drinks beer occasionally, no drug use. Has dogs and cats at home without biting or licking. He did not clean or contact with cat litters. No outdoor activity. No traveling recently. No TB exposure. Had negative PPD test many years ago. He had household contactwith common cold a week ago. Past Medical History: Diagnosis Date ??? CMV [...] NODE SUPERFICIAL N/A 10/13/2019 HOME MEDICATIONS : acyclovir (ZOVIRAX) 400 mg tablet tacrolimus (PROGRAF) 0.5 mg capsule tacrolimus (PROGRAF) 0.5 mg capsule valGANciclovir (VALCYTE) 450 mg tablet Current Facility-Administered Medications Ordered in [facility] Medication Dose Route Frequency Provider Last Rate Last Dose ??? Lactated Ringer's (LR) infusion 20 mL/hr intravenous Continuous Radha Alonzo MD 20mL/hr at 12/22/19 0226 20 mL/hr at 12/22/19 0226 ??? [START ON 12/23/2019] tacrolimus (PROGRAF) capsule 0.5 mg 0.5 mg oral Q12H [facility] Polly Barragan MD ??? valGANciclovir (VALCYTE) tablet 900 mg 900 mg oral BID Nancy Fischer MD 900 mg at Current Outpatient Medications Ordered in [facility] Medication Sig Dispense Refill ??? acyclovir (ZOVIRAX) 400 mg tablet Take 450 mg by mouth every 4 (four) hours while awake ??? tacrolimus (PROGRAF) 0.5 mg capsule Take 1 capsule (0.5 mg total) by mouth 2 (two) times a day 180 capsule 3 ??? tacrolimus (PROGRAF) 0.5 mg capsule ??? valGANciclovir (VALCYTE) 450 mg tablet Take 2 tablets (900 mg total) by mouth 2 (two) times a day 28 tablet 0 Anti-infectives (From admission, onward) Start Dose/Rate Route Frequency Ordered Stop 12/21/19 1409 valGANciclovir (VALCYTE) tablet 900 mg 900 mg oral 2 times daily 12/21/19 1408 Active Lines/Ports/Devices: Peripheral IV 12/21/19 22 G Left Forearm (Active) Number of days: 1 Patient Allergies: [...] by MARIN Conv) ??? Anesthesia problems Other Review of Systems: Review of Systems Constitutional: Positive for appetite change, diaphoresis, fatigue and fever. Negative for activitychange, chills and unexpected weight change. HENT: Positive for rhinorrhea. Negative for congestion, dental problem, ear discharge, ear pain, facial swelling, hearing loss, mouth sores, nosebleeds, postnasal drip, sinus pressure, sinus pain andtrouble swallowing. Eyes: Negative for pain, discharge, redness, itching and visual disturbance. Respiratory: Positive for cough and stridor. Negative for shortness of breath. Cardiovascular: Negative for chest pain and leg swelling. Gastrointestinal: Positive for constipation. Negative for abdominal distention, abdominal pain, diarrhea, nausea and vomiting. Genitourinary: Positive for dysuria. Negative for flank pain. Musculoskeletal: Positive for myalgias. Negative for arthralgias, back pain, joint swelling, neck pain and neck stiffness. Skin: Negative for rash and wound. Allergic/Immunologic: Negative for immunocompromised state. Neurological: Negative. Negative for weakness. Hematological: Negative for adenopathy. Psychiatric/Behavioral: Negative for confusion. All other systems reviewed and are negative. Objective Vitals: 24hr Min/Max: Temp Min: 37.6 ??C (99.7 ??F) Max: 38.1 ??C (100.6 ??F) Pulse Min: 67 Max: 96 BP Min: 92/48 Max: 110/66 Resp Min: 16 Max: 18 SpO2 Min: 92 % Max: 98 % Most Recent : Vitals: 12/22/19 0600 BP: 93/46 Pulse: 78 Resp: 18 Temp: SpO2: 94% I/O last 2 completed shifts: In: 1220 [IV Piggyback:1220] Out: - Physical Exam: Physical Exam Vitals signs reviewed. Constitutional: General: He is not in acute distress. Appearance: Normal appearance. He is not ill-appearing. HENT: Head: Normocephalic and atraumatic. Right Ear: External ear normal. Left Ear: External ear normal. Nose: Nose normal. Mouth/Throat: Pharynx: No oropharyngeal exudate. Comments: No oral ulcer, no oral thrush Eyes: General: No scleral icterus. Right eye: [...] no guarding or rebound. Musculoskeletal: General: No tenderness or deformity. Right lower leg: No edema. Left lower leg: No edema. Lymphadenopathy: Head: Right side of head: Posterior auricular adenopathy present. No submental, submandibular, tonsillar,preauricular or occipital adenopathy. Left side of head: Posterior auricular adenopathy present. No submental, submandibular, tonsillar, preauricular or occipital adenopathy. Cervical: Cervical adenopathy present. Right cervical: Superficial cervical adenopathy and posterior cervical adenopathy present. No deep cervical adenopathy. Left cervical: Superficial cervical adenopathy and posterior cervical adenopathy present. No deep cervical adenopathy. Upper Body: Right upper body: Epitrochlear adenopathy present. No supraclavicular or axillary adenopathy. Left upper body: No supraclavicular, axillary or epitrochlear adenopathy. Lower Body: No right inguinal adenopathy. No left inguinal adenopathy. Skin: General: Skin is warm. Findings: No rash. Neurological: Mental Status: He is alert and oriented to person, place, and time. Cranial Nerves: No cranial nerve deficit. Psychiatric: Thought Content: Thought content normal. Lab/Radiology/Diagnostic Review: I reviewed the laboratory result(s). Recent Labs: Microbiology: Lab Results Component Value Date MICROBIOLOGY Preliminary Report: No growth to date. 12/21/2019 MICROBIOLOGY Preliminary Report: No growth to date. 12/21/2019 MICROBIOLOGY Final Report: Negative 10/11/2019 MICROBIOLOGY Final Report: No growth 10/10/2019 MICROBIOLOGY Final Report: No growth 10/10/2019 MICROBIOLOGY 01/04/2019 Final Report: Growth indicates upper respiratory ellie. MICROBIOLOGY Final Report: Negative for Nadine Borrego Virus 01/03/2019 MICROBIOLOGY Final Report: No growth 01/03/2019 MICROBIOLOGY Final Report: No growth 01/03/2019 MICROBIOLOGY Final Report: No growth 12/19/2017 MICROBIOLOGY Final Report: No growth 12/19/2017 CBC: Recent Labs Lab Units 12/21/19 1349 12/16/19 1028 WBC K/cumm 6.5 7.2 HEMOGLOBIN g/dL 14.0 15.5 HEMATOCRIT % 40.0 44.7 PLATELET COUNT Thousand/uL -- 301 PLATELETS K/cumm 252 -- NEUTROS PCT AUTO % -- 58.7 NEUTROS PCT % 36.5 -- LYMPHS PCT % 50.5 -- LYMPHS PCT AUTO % -- 32.1 MONOS PCT AUTO % -- 7.1 MONOS PCT % 7.8 -- EOS PCT AUTO % -- 0.7 CMP: Recent Labs Lab Units 12/21/19 1349 12/16/19 1028 SODIUM mmol/L 137 144 POTASSIUM mmol/L -- 4.6 POTASSIUM PLASMA mmol/L 4.1 -- CHLORIDE mmol/L 103 108 CO2 mmol/L 25 23 ANIONGAP mmol/L 9 -- GLUCOSE mg/dL 95 118* BUN SERUM mg/dL 10 9 CREATININE mg/dL 0.81 0.78 CALCIUM mg/dL 8.8 9.3 PROTEIN g/dL -- 5.7* ALBUMIN g/dL 3.7 4.1 ALK PHOS Units/L 459* 476* ALT Units/L 57* 50* AST Units/L 55* 42* BILIRUBIN TOTAL mg/dL 0.8 0.4 ESR: CRP: Last UA: Recent Labs Lab Units 12/21/19 1513 COLOR U Yellow CLARITY U Clear SPEC GRAV U 1.026* PH, URINE 6 PROTEIN UR QL Negative GLUCOSE URQL Negative KETONES UR Negative BLOOD UR Negative NITRITE UR Negative LEUKOCYTE ESTERASE UR Negative Current CrCl: Estimated Creatinine Clearance: 115.3 mL/min (by C-G formula based on SCr of 0.81 mg/dL). Cr. Trend: Recent Labs Lab Units 12/21/19 1349 12/16/19 1028 CREATININE mg/dL 0.81 0.78 Last HIV Labs (if any): HIV Ab Screen: Lab Results Component Value Date [id number] Nonreactive 01/03/2019 HIV Viral Load: Lab Results Component Value Date [id number] Not Detected 04/06/2017 CD4 Count: No results found for: CD4ABS Radiology: Radiology results were reviewed. Last X-Ray Result: Results for orders placed during the hospital encounter of 12/21/19 XR Chest Pa Lateral 2 Vw Narrative EXAMINATION: 2 view chest radiograph Impression 2 views of the chest are compared to radiograph dated 10/10/2019. Numerous surgical clips are redemonstrated in the right hemiabdomen and left upper quadrant. Surgical clips are also noted in the right neck. Previously seen pulmonary nodule in the right midlung is decreased in size compared to prior study. A new pulmonary nodule is seen in the left midlung measuring 6 mm. Known pulmonary nodules are better evaluated on CT. No pneumothorax or pleural effusion is seen. No pulmonary edema is seen. Hilar lymphadenopathy is redemonstrated. The heart is normal in size. Electronically signed by: Sofia Arevalo M.D. Last CT Result: Results for orders placed [...] are normal. The limited view of the [place] is unremarkable. The visualized portions of the [...] examined and the following details determined: Assessment/Plan Fever Assessment & Plan Patient has fever 2 days with sore throat, myalgia, productive cough. No shortness of breath, no diarrhea, abdominal pain. Physical exam was remarkable for known cervical lymphadenopathy. RVP was positive for rhino/enterovirus. CBC was normal. CMP found elevated ALP since 10/2019. CXR no new consolidation. UA was normal. - His symptoms are mostly consistent with viral upper respiratory tract infection from rhino/enterovirus. However, will send more work up according to exposure: Bartonella serology, toxoplasma IgG/IgM and EBV PCR - Patient can be managed outpatient if no other condition requiring inpatient management. ID will arrange follow up Cytomegalovirus (CMV) viremia ([facility]) Assessment & Plan Patient had peripheral blood CMV PCR detectable [...] for evaluation of retinitis if not done. Patient was seen and discussed with attending-Dr. Liang. Please see above attestation for additional opinion/ recommendation. ID will continue to follow Please call Transplant Infectious Disease [phone] for questions or change in clinical status Gilbert Hammond MD Infectious Disease Fellow Cosigned by Zeferino Liang MD at 12/22/2019 12:05 PM SCHOOL SUPERVISOR OL SUPERVISOR OL SUPERVISOR Associated attestation - Zeferino Liang MD - 12/22/2019 12:05 PM SCHOOL SUPERVISOR I have seen and examined the patient on 12/22/19. I agree with the findings and plan of care as documented in the resident's/fellow's note. Patient with acute worsening over chronic symptoms of fatigue and possible B symptoms. The acute symptoms are likely related to URTI with rhino/enterovirus. The cause of the chronic symptoms is unclear but have been ongoing since October. He has very low CMV viremia which has not changed appreciably despite oral induction dose of valganciclovir. I do not think this is responsible for his symptoms - it is more likely a reflection of immune dysregulation from another process. Given his history of slowly progressive PTLD in 2017 (over months - requiring multiple LN biopsies for diagnosis), I worry that it may be slowly recurring. Would check a serum EBV quantitative PCR for the same reason. We will need to discuss with his outpatient oncologist Dr. Gillespie about utility of repeating a PET CT scan and biopsies at some point in the future. documented in this encounter ED Notes * Franky Chester PA - 12/22/2019 1:54 PM CST Call from Microbiology to inform of positive EBV. It appears from discharge notes that ID will follow up results in clinic. No further action required. SADE De La Torre 12/26/19 0147 OL SUPERVISOR * Nancy Fischer MD - 12/21/2019 12:55 PM CST HPI Chief Complaint Patient presents with ??? Fever ??? Cough Pt is a 24 yo M with PMH of NHL, liver transplant 2/2 autoimmune hepatitis on tacrolimus, presenting with fevers, productive cough and weakness. Pt tested positive for CMV two months ago and was started on valganciclovir. Two days ago, Pt began feeling increasing weakness, developed cough productive of yellow sputum. Today, Pt began having fevers with Tmax 102. Pt with temp 38.1 on arrival. Denies sick contacts. Been adhering to valganciclovir. Spoke to transplant and ID MDs and told to come toED for eval and probable admit. Pt also c/o some dysuria. Pt denies NVD, chest pain, headache, photophobia. FHX: HTN SHX: Denies ATD Patient History Patient Active Problem List Diagnosis Date Noted ??? 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 Upper respiratory infection 12/21/2019 ??? Immunocompromised patient (CMS/HCC) 01/06/2019 ??? Community acquired pneumonia of right middle lobe of lung (CMS/HCC) 01/06/2019 ??? Lymphadenopathy 01/06/2019 ??? snf current use of immunosuppressive drug 01/06/2019 ??? 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 History of liver transplant (CMS/HCC) 06/06/2014 ??? 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 Idiopathic thrombocytopenic purpura (CMS/HCC) 02/15/2014 ??? Autoimmune hepatitis (CMS/HCC) 05/18/2012 ??? Hypogammaglobulinemia (CMS/HCC) 02/17/2010 ??? 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 CMV [...] GUIDED BIOPSY LYMPH NODE SUPERFICIAL N/A 10/13/2019 Family History Problem Relation Age of Onset [...] Comment: occassional ??? Drug use: Not Currently Social History Social History Narrative Living Situation: Residential institution 10/05/17 (Added by [facility]) Review of Systems Review of Systems Constitutional: Positive for chills and fever. All other systems reviewed and are negative. Physical Exam ED Triage Vitals [12/21/19 1107] Temp Pulse Resp BP SpO2 37.6 ??C (99.7 ??F) 96 16 109/59 97 % Temp src Heart Rate Source Patient Position BP Location FiO2 (%) Oral -- -- -- -- Physical Exam Vitals signs and nursing note reviewed. Constitutional: General: He is not in acute distress. Appearance: He is well-developed. He is ill-appearing. He is not toxic-appearing. HENT: Head: Normocephalic and atraumatic. Right Ear: External ear normal. Left Ear: External ear normal. Mouth/Throat: Mouth: Mucous membranes are moist. Pharynx: Posterior oropharyngeal erythema present. Eyes: Extraocular Movements: Extraocular movements intact. Conjunctiva/sclera: Conjunctivae normal. Pupils: Pupils are equal, round, and reactive to light. Neck: Musculoskeletal: Normal range of motion and neck supple. Cardiovascular: Rate and Rhythm: Normal rate and regular rhythm. Heart sounds: Normal heart sounds. No murmur. Pulmonary: Effort: Pulmonary effort is normal. No respiratory distress. Breath sounds: Normal breath sounds. No stridor. No rhonchi or rales. Abdominal: Palpations: Abdomen is soft. Tenderness: There is no abdominal tenderness. Musculoskeletal: Normal range of motion. Skin: General: Skin is warm and dry. Capillary Refill: Capillary refill takes less than 2 seconds. Neurological: General: No focal deficit present. Mental Status: He is alert and oriented to person, place, and time. Psychiatric: Mood and Affect: Mood normal. Behavior: Behavior normal. MDM MDM Pt is a 24 yo M with PMH of NHL, liver transplant 2/2 autoimmune hepatitis on tacrolimus, presenting with fevers, productive cough and weakness DDX: PNA (viral v bacterial) v Flu v URI v UTI v Bacteremia Blood cultures. Cbc, bmp, ua, cxr. Empiric abx: cefe and vanc. Cont valganciclovir Fungal cultures C/s to Transplant ID Admit to medicine Dispo: admit Attending Summary of Care ED Course as of Dec 21 1858 Time: 12/21 1535 Comment: ATTENDING SUMMARY: Pt with hx of NHL as child, autoimmune hepatitis s/p transplant 15 years ago, recent CMV infection, now with fever, cough, rhinorrhea, aches, no chest pain, no SOB, no abdpain, no change bowel or bladder, no rash. VSS afeb, nontoxic, A,A, Ox3, NAD, lungs clear, abd soft, NT, no peritoneal signs, no rash. PT with immune suppression, fever, poss influenza or other viralinfection, poss PNA, for labs, cultures, imaging, empiric abx, admit, discuss with ID By: David Benjamin MD Time: 12/21 1546 Comment: Need to call transplant ID at [phone] By: Nancy Fischer MD Cytomegalovirus infection, unspecified cytomegaloviral infection type (CMS/HCC) Nancy Fischer MD Resident 12/21/19 1900 Cosigned by David Benjamin MD at 12/22/2019 4:45 PM SCHOOL SUPERVISOR OL SUPERVISOR OL SUPERVISOR Associated attestation - David Benjamin MD - 12/22/2019 4:45 PM SCHOOL SUPERVISOR I have seen and examined the patient on 12/21/2019. I reviewed the resident's note and agree with the findings and plan of care as documented in the resident's note with modifications as documented inmy note. * Azucena Heller RN - 12/21/2019 12:29 PM CST Bed: [id number] Expected date: 12/21/19 Expected time: 9:40 AM Means of arrival: Car Comments: Azucena Heller RN 12/21/19 1229 OL SUPERVISOR * Richar Chatman RN - 12/21/2019 11:09 AM CST Pt to ED w generalized body aches, fever as high as 102 and productive yellow cough x2 days. Pt w hx of liver transplant 20 years ago on tacro and non hodgkin's lymphoma 2 years ago, in remission. Pthas been battling a CMV infection x2-3 months on valganciclovir. Referred to come to ED by liver tra nsplant and ID MDs OL SUPERVISOR documented in this encounter Miscellaneous Notes * ED Observation Provider Note - Melia Abbott PA - 12/22/2019 1:18 PM CST Observation Disposition This is a 24-year-old male PMHx of CMV viremia, on immune hepatitis s/p liver transplant x2, EBV positive who presented to the emergency room with sore throat, fever and cough with productive sputum.He was febrile up to 102 yesterday. Patient's liver team advised to come to the hospital for further evaluation. Patient's viral panel was positive for rhino virus. Patient was seen by ophthalmology,which ruled him out for CMV retinitis, right lid nerve pallor is chronic per patient, he has a follow-up appointment with Optometry on January 03, 2020. Patient was seen by hepatology that requested a CMV DNA PCR which they will follow up in the outpatient setting. Hospital medicine evaluated the patient and ophthalmology upon consultation and patient's clinical improvement patient has been cleared to discharge with follow-up Physical Exam Constitutional: Appearance: Normal appearance. He is normal weight. He is not ill-appearing or toxic-appearing. HENT: Head: Normocephalic and atraumatic. Right Ear: External ear normal. Left Ear: External ear normal. Nose: Nose normal. Mouth/Throat: Mouth: Mucous membranes are moist. Eyes: Extraocular Movements: Extraocular movements intact. Pupils: Pupils are equal, round, and reactive to light. Neck: Musculoskeletal: Normal range of motion. Cardiovascular: Rate and Rhythm: Normal rate and regular rhythm. Pulses: Normal pulses. Pulmonary: Effort: Pulmonary effort is normal. Abdominal: General: Abdomen is flat. Musculoskeletal: Normal range of motion. Skin: General: Skin is warm and dry. Capillary Refill: Capillary refill takes less than 2 seconds. Neurological: Mental Status: He is alert and oriented to person, place, and time. Cranial Nerves: No cranial nerve deficit. Motor: No weakness. MDM MDM:This is a 24-year-old immune suppressed s/p liver transplant gentleman who has Rhinovirus and h/o CMV for 2 month. Patient had a CMV DNA PCR sent off that hepatology will follow up on. He will follow up with ID andDr. Head in the outpatient setting. Observation Disposition: discharge OL SUPERVISOR * Hospital Course - Sussy Stone MD - 12/22/2019 10:17 AM SCHOOL SUPERVISOR Upper respiratory infection Patient presented with report of 2 days history of sore throat, cough productive of yellow sputum, and malaise. RVP in ED positive for rhinovirus, presenting likely etiology for patient's illness. CXR with pulmonary nodule in the right mid-lung. Patient was treated prophylactically for pneumonia given immunocompromised status with vancomycin and cefepime. Patient seen by transplant ID, they recommended ophtho evaluation to r/o CMV retinitis (see below). ??Also recommended collecting bartonella serologies, toxoplasma IgG/IgM, and EBV PCR given his exposures and immunocompromised status, these labs are pending. ??Histoplasma serology and urinary antigen were also collected. ID will follow up on the results of these tests as an outpatient. ?? Cytomegalovirus (CMV) viremia (CMS/HCC) Patient noted to have??CMV viremia on 11/08/19, with??titer of??508. ??Following this his??prophylactic valgancyclovir was increased to treatment dose of 900mg BID. ??Titers have continued to increase:530 on 12/02, 626 on 12/09, 940 on 12/16. Patient was evaluated by transplant ID who recommended evaluation by ophthalmolgy to rule out MCV retinitis. Ophthalmology evaluated patient and did not appreciate any signs of retinitis. Patient's valgancyclovir was continued. ?? Lymphadenopathy BL cervical and postauricular LAD palpable on physical exam, these have been present for several weeks. Patient had axillary lymph node biopsy performed 10/13/19 which showed organized lymphoid tissue with reactive features. No clonal B-cell or immunophenotypically abnormal T-cell population identified on flow cytometry. There was no EBV RNA detected by in situ hybridization. Patient has follow up scheduled with Dr. Gillespie in December 2019. ?? 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 Gillespie. PET 07/13/19: Interval increase in size of diffuse lymphadenopathy both above and below diaphragm, considerably worse than last scan on 01/23/19. Patient has follow up appointment scheduled with Dr. Gillespie in December 2019. ?? History of liver transplant (CMS/HCC) Patient follows with Dr. Gresham. Patient's tacrolimus 0.5mg BID and valcyte 900mg BID were continued. Patient was briefly discussed with hepatology service, who requested we collect a CMV DNA prior to discharge. OL SUPERVISOR OL SUPERVISOR OL SUPERVISOR OL SUPERVISOR OL SUPERVISOR OL SUPERVISOR OL SUPERVISOR * Assessment & Plan Note - Sussy Stone MD - 12/22/2019 9:53 AM SCHOOL SUPERVISOR Associated Problem(s): Cytomegalovirus (CMV) viremia (CMS/HCC) (HCC) Patient noted to have CMV viremia on 11/08/19, with titer of 508. ??Following this his prophylactic valgancyclovir was increased to treatment dose of 900mg BID. Titers have continued to increase: 530 on 12/02, 626 on 12/09, 940 on 12/16. -f/u CMV DNA -continue valgancyclovir 900mg BID OL SUPERVISOR * Assessment & Plan Note - Sussy Stone MD - 12/22/2019 9:53 AM SCHOOL SUPERVISOR Associated Problem(s): Lymphadenopathy BL cervical LAD palpable on physical exam, these have been present for several weeks -patient plans to follow-up with??Dr. Gillespie OL SUPERVISOR * Assessment & Plan Note - Sussy Stone MD - 12/22/2019 9:33 AM SCHOOL SUPERVISOR Associated Problem(s): Upper respiratory infection (Deleted) Patient reports 2 days history of sore throat, cough productive of yellow sputum, and malaise. RVP in ED positive for rhinovirus, presenting possible etiology for patient's illness. CXR with pulmonary nodule in the right mid-lung, treating prophylactically for pneumonia given immunocompromised status. Patient seen by transplant ID , they recommended ophtho evaluation to r/o CMV retinitis. Also recommended collecting bartonella serologies, toxoplasma IgG/IgM, and EBV PCR given his exposures and immunocompromised status, these labs are pending. They will also arrange follow-up appointment for the patient. 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 Gillespie. PET 07/13/19: Interval increase in size of diffuse lymphadenopathy both above and below diaphragm, considerably worse than last scan on 01/23/19. -defer management to outpatient physician OL SUPERVISOR * Assessment & Plan Note - Sussy Stone MD - 12/22/2019 9:32 AM SCHOOL SUPERVISOR Associated Problem(s): History of liver transplant (CMS/HCC) (HCC) Follows with Dr. Gresham -c/w tacro 0.5mg BID -c/w valcyte 900mg BID OL SUPERVISOR * Subjective & Objective - Sussy Stone MD - 12/22/2019 9:24 AM SCHOOL SUPERVISOR Daily Progress Note Name: Beka Nichols Today: December 22, 2019 : 1995 Age: 24 y.o. male Admit: 12/21/2019 Bed: [facility] OBS-09/OBS-09 Subjective Chief complaint: fever, cough Interval History: SAM CALLAHAN overnight, patient has been satting 92-95% overnight. Patient reports that he feels much better this morning, still has a productive cough but denies subjective fevers. Patient seen by transplant ID yesterday, they recommended ophtho evaluation to r/o CMV retinitis. Also recommended collecting bartonella serologies, toxoplasma IgG/IgM, and EBV PCR given his exposures and immunocompromised status, these labs are pending. They will also arrange follow-up appointmentfor the patient. Objective Medications: Scheduled: [START ON 12/23/2019] tacrolimus, 0.5 mg, oral, Q12H PIPPA valGANciclovir, 900 mg, oral, BID Infusions: Lactated Ringer's, 20 mL/hr, Last Rate: 20 mL/hr (12/22/19 0226) PRN: Vitals: 24hr Min/Max: Temp Min: 37.6 ??C (99.7 ??F) Max: 38.1 ??C (100.6 ??F) Pulse Min: 67 Max: 96 BP Min: 92/48 Max: 110/66 Resp Min: 15 Max: 18 SpO2 Min: 92 % Max: 98 % Most Recent: Vitals: 12/22/19 0800 BP: 95/50 Pulse: 72 Resp: 15 Temp: SpO2: 94% Intake/Output Summary (Last 24 hours) at 12/22/2019 0924 Last data filed at 12/21/2019 1742 Gross per 24 hour Intake 1220 ml Output -- Net 1220 ml Physical Exam Constitutional: NAD, well developed, well nourished Eyes: PERRL, EOMI, anicteric ENT: No oral thrush, NCAT, oropharynx normal, moist mucus membranes Lungs: Clear to auscultation in all lung more, unlabored, trachea midline Cardiovascular: RRR, normal S1 and S2, no murmurs, no JVD GI: Soft, non-tender, non-distended, bowel sounds +, no organomegaly Skin: No new rashes, lesions or bruises Extremities: Normal without edema or cyanosis Lymph: Prominent posterior auricular LAD bilaterally; superficial cervical adenopathy and posteriorcervical adenopathy also present. Neurologic: AOx4, CNII-XII intact, normal strength and sensation Psychiatric: Normal affect and mood Lab/Diagnostic Review: Recent Results (from the past 36 hour(s)) Comprehensive metabolic panel Collection Time: 12/21/19 1:49 PM Result Value Ref Range Sodium 137 135 - 145 mmol/L Potassium, pl 4.1 3.3 - 4.9 mmol/L Chloride 103 97 - 110 mmol/L CO2 25 22 - 32 mmol/L Anion gap 9 2 - 15 mmol/L BUN 10 8 - 25 mg/dL Creatinine 0.81 0.80 - 1.30 mg/dL Glucose 95 70 - 199 mg/dL Calcium 8.8 8.5 - 10.3 mg/dL Bilirubin, total 0.8 0.1 - 1.2 mg/dL Protein, pl 6.0 (L) 6.5 - 8.5 g/dL Albumin 3.7 3.5 - 5.0 g/dL Alk phos 459 (H) 40 - 130 Units/L ALT 57 (H) 7 - 55 Units/L AST 55 (H) 10 - 50 Units/L CBC with auto differential Collection Time: 12/21/19 1:49 PM Result Value Ref Range WBC 6.5 3.8 - 9.9 K/cumm Hgb 14.0 13.0 - 17.5 g/dL Hct 40.0 38.9 - 50.3 % Plt 252 150 - 400 K/cumm MPV 9.7 9.1 - 12.3 fL RBC 4.30 4.30 - 5.80 M/cumm MCV 93.0 81.3 - 96.4 fL MCH 32.6 27.1 - 33.3 pg MCHC 35.0 32.3 - 35.7 g/dL RDW CV 14.8 11.1 - 14.9 % RDW SD 51.0 (H) 35.7 - 48.1 fL NRBC abs 0.00 0.00 - 0.01 K/cumm Sepsis Lactate w/ Reflex Collection Time: 12/21/19 1:49 PM Result Value Ref Range Sepsis Lactate 1.2 0.7 - 2.0 mmol/L Blood culture Blood Peripheral Collection Time: 12/21/19 1:49 PM Result Value Ref Range Report Preliminary Report: No growth to date. Blood culture Blood Peripheral Collection Time: 12/21/19 1:49 PM Result Value Ref Range Report Preliminary Report: No growth to date. Respiratory pathogen PCR Nasopharyngeal Collection Time: 12/21/19 1:49 PM Result Value Ref Range Adenovirus DNA Not Detected Not Detected Coronavirus 229E RNA Not Detected Not Detected Coronavirus HKU1 RNA Not Detected Not Detected Coronavirus NL63 RNA Not Detected Not Detected Coronavirus OC43 RNA Not Detected Not Detected Metapneumovirus RNA Not Detected Not Detected Rhinovirus/Enterovirus RNA Detected (A) Not Detected Influenza A RNA Not Detected Not Detected Influenza B RNA Not Detected Not Detected Parainfluenza Virus 1 RNA Not Detected Not Detected Parainfluenza Virus 2 RNA Not Detected Not Detected Parainfluenza Virus 3 RNA Not Detected Not Detected Parainfluenza Virus 4 Not Detected Not Detected RSV RNA Not Detected Not Detected Bordetella pertussis DNA Not Detected Not Detected Chlamydophila pneumoniae DNA Not Detected Not Detected Mycoplasma pneumoniae DNA Not Detected Not Detected Bordetella parapertussis DNA Not Detected Not Detected Manual Differential Collection Time: 12/21/19 1:49 PM Result Value Ref Range Differential Manual Cells Counted 115 Neutrophil abs 2.4 1.7 - 6.5 K/cumm Imm gran abs 0.1 0.0 - 0.1 K/cumm Lymphocyte abs 3.4 (H) 0.8 - 3.3 K/cumm Monocyte abs 0.5 0.2 - 0.8 K/cumm Basophil abs 0.1 0.0 - 0.1 K/cumm Neutrophil pct 36.5 % Lymphocyte pct 50.5 % Monocyte pct 7.8 % Basophil pct 1.7 % Neutrophilic metamyelocytes 0.9 % Variant lymphs 2.6 % Vacuolation Present (A) RBC morphology Normal POC Blood Gas and Chemistries, Arterial - Collection Time: 12/21/19 2:09 PM Result Value Ref Range Lactate, POC 1.2 0.7 - 2.2 mmol/L Urinalysis reflex to microscopic and culture Urine Collection Time: 12/21/19 3:13 PM Result Value Ref Range Color, ur Yellow Yellow Clarity, ur Clear Clear Specific gravity, ur 1.026 (H) 1.010 - 1.025 pH, urine 6 Protein, ur ql Negative Negative Glucose, ur ql Negative Negative Ketones, ur Negative Negative Bilirubin, ur Negative Negative Blood, ur Negative Negative Urobilinogen, ur 4.0 (A) <2.0 mg/dL Nitrite, ur Negative Negative Leukocyte esterase, ur Negative Negative UA reflex comment Reflex to microscopic UA will be performed. Urinalysis, microscopic only Collection Time: 12/21/19 3:13 PM Result Value Ref Range WBC, ur 0-5 0 - 5 /HPF RBC, ur 0-2 0 - 2 /HPF Bacteria, ur Trace (A) Mucous, ur Present (A) Culture Reflex Comment Reflex conditions for urine culture (WBC >10) not met. I have reviewed the laboratory results. Imaging Results: ECG 12 lead David Benjamin MD 12/21/2019 2:01 PM ECG 12 lead Date/Time: 12/21/2019 2:00 PM Performed by: David Benjamin MD Authorized by: Nancy Fischer MD Rate: ECG rate: 82 ECG rate assessment: normal Rhythm: Rhythm: sinus rhythm Ectopy: Ectopy: none QRS: QRS axis: Normal QRS intervals: Normal Conduction: Conduction: normal ST segments: ST segments: Normal T waves: T waves: inverted Inverted: V1, V2 and V3 Previous ECG: Previous ECG: Unavailable Interpretation: Interpretation: non-specific Recommended Follow-up: Recommended follow up: further workup in the ED XR Chest Pa Lateral 2 Vw Narrative: EXAMINATION: 2 view chest radiograph Impression: 2 views of the chest are compared to radiograph dated 10/10/2019. Numerous surgical clips are redemonstrated in the right hemiabdomen and left upper quadrant. Surgical clips are also noted in the right neck. Previously seen pulmonary nodule in the right midlung is decreased in size compared to prior study. A new pulmonary nodule is seen in the left midlung measuring 6 mm. Known pulmonary nodules are better evaluated on CT. No pneumothorax or pleural effusion is seen. No pulmonary edema is seen. Hilar lymphadenopathy is redemonstrated. The heart is normal in size. Electronically signed by: Sofia Arevalo M.D. I have independently reviewed and interpreted CXR, ECG OL SUPERVISOR * Assessment & Plan Note - Gilbert Hammond MD - 12/22/2019 7:38 AM SCHOOL SUPERVISOR Associated Problem(s): Fever (Resolved 10/09/2023) Patient has fever 2 days with sore throat, myalgia, productive cough. No shortness of breath, no diarrhea, abdominal pain. Physical exam was remarkable for known cervical lymphadenopathy. RVP was positive for rhino/enterovirus. CBC was normal. CMP found elevated ALP since 10/2019. CXR no new consolidation. UA was normal. - His symptoms are mostly consistent with viral upper respiratory tract infection from rhino/enterovirus. However, will send more work up according to exposure: Bartonella serology, toxoplasma IgG/IgM and EBV PCR - Patient can be managed outpatient if no other condition requiring inpatient management. ID will arrange follow up OL SUPERVISOR * ED Re-evaluation Note - Nancy Fischer MD - 12/22/2019 7:24 AM SCHOOL SUPERVISOR TRANSITION OF CARE: I, Nancy Fischer MD, am taking signout from Yung (Resident) . I have reviewed all pertinent vital signs, allergies, and history available in the chart. 24 yo M with PMH of NHL, liver transplant 2/2 autoimmune hepatitis on tacrolimus, presenting with fevers, productive cough and weakness. Pt tested positive for CMV two months ago and was started on valganciclovir. Two days ago, Pt began feeling increasing weakness, developed cough productive of yellow sputum. Today, Pt began having fevers with Tmax 102. Pt with temp 38.1 on arrival. Denies sick contacts. Been adhering to valganciclovir. Spoke to transplant and ID MDs and told to come to ED for eval and probable admit. Pt also c/o some dysuria. ?? Pt denies NVD, chest pain, headache, photophobia. ?? FHX: HTN SHX: Denies ATD ? ED Course as of Dec 25 910 Time: 12/21 1535 Comment: ATTENDING SUMMARY: Pt with hx of NHL as child, autoimmune hepatitis s/p transplant 15 years ago, recent CMV infection, now with fever, cough, rhinorrhea, aches, no chest pain, no SOB, no abdpain, no change bowel or bladder, no rash. VSS afeb, nontoxic, A,A, Ox3, NAD, lungs clear, abd soft, NT, no peritoneal signs, no rash. PT with immune suppression, fever, poss influenza or other viralinfection, poss PNA, for labs, cultures, imaging, empiric abx, admit, discuss with ID By: David Benjamin MD Time: 12/21 1546 Comment: Need to call transplant ID at [phone] By: Nancy Fischer MD Time: 12/22 9203 Comment: 24 year old PMHx of liver transplant due to autoimmune hepatitis, recent CMV infection whohad increasing fever, cough, rhinorrhea, body aches at home yesterday who presented to the emergency room department . Given patient's immune suppression status patient is awaiting for bed on the floor for monitoring. By: SADE Byrne Time: 12/22 1324 Comment: Med 2 aware of DC By: SADE Byrne MD Resident 12/25/19 0911 OL SUPERVISOR * Assessment & Plan Note - Gilbert Hammond MD - 12/22/2019 7:16 AM SCHOOL SUPERVISOR Associated Problem(s): Cytomegalovirus (CMV) viremia (CMS/HCC) ([facility]) Patient had peripheral blood CMV PCR detectable at 508 on 11/08/2019. Previous titer was negative in 07/2019. Valacyclovir was increased to 900 b.i.d since 11/13. However, his viral load continues to increase despite treatment. On 12/02 was 530. 2/8: 626, 12/16: 940. CMV resistance testing was sent (12/12 ?) Now he presents with 2 days of fever with URI symptoms. No evidence of end organ involvement. - Continue valcyclovir 900 mg bid - Follow CMV resistance testing result - Consult ophthalmology for evaluation of retinitis if not done. OL SUPERVISOR * ED Observation Provider Note - Kristine Dasilva NP - 12/22/2019 3:12 AM CST ED Obs Boarder Note 24 year old pt await admission bed for management of cytomegalovirus infection. Vitals: 12/22/19 0115 12/22/19 0130 12/22/19 0200 12/22/19 0202 BP: 94/52 104/54 Pulse: 84 79 81 Resp: Temp: TempSrc: SpO2: 93% 94% 94% Weight: Height: Social History Socioeconomic History ??? Marital status: Single Spouse name: None ??? Number of children: None ??? Years of education: None ??? Highest education level: None Occupational History ??? None Social Needs ??? Financial resource strain: None ??? Food insecurity Worry: None Inability: None ??? Transportation needs Medical: None Non-medical: None Tobacco Use ??? Smoking status: Never Smoker ??? Smokeless tobacco: Never Used Substance and Sexual Activity ??? Alcohol use: Yes Comment: occassional ??? Drug use: Not Currently ??? Sexual activity: Defer Lifestyle ??? Physical activity Days per week: None Minutes per session: None ??? Stress: None Relationships ??? Social connections Talks on phone: None Gets together: None Attends restoration service: None Active member of club or organization: None Attends meetings of clubs or organizations: None Relationship status: None ??? Intimate partner violence Fear of current or ex partner: None Emotionally abused: None Physically abused: None Forced sexual activity: None Other Topics Concern ??? None Social History Narrative Living Situation: Residential institution 10/05/17 (Added by TW Conv) Past Medical History: Diagnosis Date ??? CMV [...] ??? PNA (pneumonia) ??? Pulmonary emboli (CMS/HCC) Family History Problem Relation Age of Onset ??? Rectal cancer Mother Rectal cancer - (Added by TW Conv) ??? Diabetes type II Sister Family history of type 2 diabetes mellitus - (Added by TW Conv) ??? Anesthesia problems Other Physical Exam Constitutional: Appearance: Normal appearance. He is not diaphoretic. HENT: Head: Atraumatic. Mouth/Throat: Mouth: Mucous membranes are moist. Eyes: Extraocular Movements: Extraocular movements intact. Cardiovascular: Rate and Rhythm: Normal rate. Pulmonary: Effort: Pulmonary effort is normal. Abdominal: Palpations: Abdomen is soft. Skin: General: Skin is warm and dry. Neurological: Mental Status: He is alert and oriented to person, place, and time. Psychiatric: Mood and Affect: Mood normal. Behavior: Behavior normal. OL SUPERVISOR * ED Re-evaluation Note - Polly Barragan MD - 12/21/2019 10:55 PM SCHOOL SUPERVISOR ED Re-evaluation ED Course as of Dec 22 638 Time: 12/21 1534 Comment: ATTENDING SUMMARY: Pt with hx of NHL as child, autoimmune hepatitis s/p transplant 15 years ago, recent CMV infection, now with fever, cough, rhinorrhea, aches, no chest pain, no SOB, no abdpain, no change bowel or bladder, no rash. VSS afeb, nontoxic, A,A, Ox3, NAD, lungs clear, abd soft, NT, no peritoneal signs, no rash. PT with immune suppression, fever, poss influenza or other viralinfection, poss PNA, for labs, cultures, imaging, empiric abx, admit, discuss with ID By: David Benjamin MD Time: 12/21 154 Comment: Need to call transplant ID at [phone] By: Nancy Fischer MD TRANSITION OF CARE: I, Polly Barragan MD, am taking signout from Dr. Alonzo (Resident) under supervision of (Attending). I have reviewed all pertinent vital signs, allergies, and history available in the chart. Summary: 24 y.o. male PMH non-hodgkins lymphoma with autoimmune hepatitis s/p liver transplant (age4) now on tacrolimus. The patient developed CMV 1 month ago, now on valganciclovir. He no has a fewdays of fever and productive cough. He was started on vancomycin and cefepime. Transplant ID involved. He is signed out to IP team. Pending: bed placement Dispo: admission Polly Barragan MD Resident 12/22/19 0639 OL SUPERVISOR * Assessment & Plan Note - Sussy Stone MD - 12/21/2019 6:33 PM SCHOOL SUPERVISOR Associated Problem(s): Upper respiratory infection (Deleted) Patient reports 2 days history of sore throat, cough productive of yellow sputum, and malaise. RVP in ED positive for rhinovirus, presenting possible etiology for patient's illness. CXR with pulmonary nodule in the right mid-lung, treating prophylactically for pneumonia given immunocompromised status -supportive care -droplet precautions -continue vanc/cefe for now OL SUPERVISOR OL SUPERVISOR * Assessment & Plan Note - Sussy Stone MD - 12/21/2019 6:25 PM SCHOOL SUPERVISOR Associated Problem(s): Cytomegalovirus (CMV) viremia (CMS/HCC) ([facility]) Patient noted to have CMV viremia on 11/08/19, with titer of 508. ??Following this his prophylactic valgancyclovir was increased to treatment dose of 900mg BID. Titers have continued to increase: 530 on 12/02, 626 on 12/09, 940 on 12/16. 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 Gillespie. PET 07/13/19: Interval increase in size of diffuse lymphadenopathy both above and below diaphragm, considerably worse than last scan on 01/23/19. -defer management to outpatient physician OL SUPERVISOR * Assessment & Plan Note - Sussy Stone MD - 12/21/2019 6:23 PM SCHOOL SUPERVISOR Associated Problem(s): History of liver transplant (CMS/HCC) (HCC) Follows with Dr. Gresham -c/w tacro 0.5mg BID -c/w valcyte 900mg BID OL SUPERVISOR * Assessment & Plan Note - Sussy Stone MD - 12/21/2019 6:22 PM SCHOOL SUPERVISOR Associated Problem(s): Lymphadenopathy BL cervical LAD palpable on physical exam, these have been present for several weeks -patient plans to follow-up with??Dr. Gillespie OL SUPERVISOR * Medical Student - Precious Xie - 12/21/2019 5:17 PM CST General Medicine History and Physical Subjective Patient is a 24 y.o. male with chief complaint of productive cough and fever. HPI: Mr. Nichols is a 24 year old man with a history of orthotopic liver transplant, PTLD, and recent CMV viremia who presents with 2 days of sore throat, fever, myalgias, and cough productive for yellow sputum. Yesteday, he woke up with a fever of 100. He tried to go to work but had to return mid day, atwhich time his fever spiked to 102. Mom called the liver transplant office who advised them to comein for work up. Patient denies nausea, vomiting, diarrhea, constipations, abdominal pain, vision changes, hearing changes, chest pain, or SOB. Notably, patient began to have CMV viremia on 11/08/19, titer 508. His prophylactic valgancyclovir was increased from 450mg BID to 900mg BID; however his titers continued to uptrend (530 on 12/02, 626 on12/09, 940 on 12/16). He has not been symptomatic during this time besides some intermittent fatigue. He was also recently hospitalized in October 2019 for concern for relapse of PTLD which was been in complete remission since 12/2017. He was experiencing increasing adenopathy, night sweats, productive cough, and fevers. During the admission he had a RVP positive for adenovirus and parainfluenza with CXR with possible right middle lobe PNA, for which he was treated with vanc, cefe, azithro x 2 and then a course of levofloxacin. PET scan showed an increase in adenopathy and bilateral hypermetabolic pulmonary opacities. Lymph node biopsy showed organized lymphoid tissue with reactive features, suggestive of infectious/inflammatory cause and less concerning for recurrence/progression of lymphoma. Past Medical History: Diagnosis Date ??? CMV [...] ??? PNA (pneumonia) ??? Pulmonary emboli (CMS/HCC) Pulmonary embolus: October 2017, off anticoagulation at the time PTLD: EBV + PTLD, c-MYC positive 1. R-CHOP x 1, 08/25/2017. 2. Dose adjusted EPOCH-R x 5, 09/15/2017 - 12/2017. Post-C2 PET: AL (5PS = 4), CR post C5 3. IT chemotherapy (MTX), only with cycle 3 on 10/06/2017, complicated by intracranial hypotension. 4. R cervical LNBx, 01/06/19, EBV+ florid follicular hyperplasia, c/w possible early PTLD. Past Surgical History: Procedure Laterality Date ??? BIOPSY LYMPH NODE SUPERFICIAL N/A 05/22/2014 ??? LIVER TRANSPLANT 1998 ??? SPLENECTOMY ??? US ABDOMEN COMPLETE W LIVER DUPLEX (C) Right 10/18/2018 ??? US GUIDED BIOPSY LIVER N/A 10/18/2018 ??? US GUIDED BIOPSY LYMPH NODE SUPERFICIAL N/A 10/13/2019 Splenectomy for refractory ITP 2012 Medications: Tacrolimus 0.5mg daily Valganciclovir 900mg BID No Known Allergies Social History Tobacco Use [...] Conv) ??? Anesthesia problems Other Review of Systems Constitution:??Postive??for fever, chills, fatigue. HEENT:?Negative for??new??visual disturbance, ear pain, sore throat, rhinorrhea, hearing disturbances. Respiratory: ??Positive for productive cough. Negative for dyspnea. Cardiovascular: Negative for palpitations and chest pain. Gastrointestinal:??Negative??for??nausea, vomiting,??belly pain, diarrhea, constipation. Genitourinary:?Negative for??dysuria or increased frequency. Musculoskeletal:??Negative for myalgia or arthralgias. Skin:?Negative for rash Neurological:??Negative for weakness and numbness. Psychiatric/Behavioral:??Negative??for mood changes or anxiety. Objective Vitals: Arrival Vitals [12/21/19 1107] Temp 37.6 ??C (99.7 ??F) Pulse 96 Resp 16 BP 109/59 SpO2 97 % Temp src Oral Heart Rate Source Patient Position BP Location FiO2 (%) 24hr Min/Max: Temp Min: 37.6 ??C (99.7 ??F) Max: 38.1 ??C (100.6 ??F) Pulse Min: 75 Max: 96 BP Min: 103/59 Max: 110/66 Resp Min: 16 Max: 16 SpO2 Min: 93 % Max: 97 % Most Recent : Vitals: 12/21/19 1444 BP: Pulse: Resp: Temp: 38 ??C (100.4 ??F) SpO2: No intake/output data recorded. I/O this shift: In: 20 [IV Piggyback:20] Out: - Physical exam: General:?Sitting up in bed eating, no acute distress. HEENT: Normocephalic, atraumatic, sclera anicteric, mucous membranes moist, no oral ulcers, palate elevates symmetrically and throat without exudate. Diffuse cervical lymphadenopathy Pulm:?No increased work of breathing. CTAB. Heart: RRR, normal S1, S2, no m/g/r. GI: Soft, nondistended. Normal bowel sounds. No tenderness to palpation or rebound tenderness. Extremities: Warm and well perfused. No edema. 2+ DP and radial pulses. Skin: No rashes or bruising. Neuro: Alert and oriented x 3. Moves all extremities appropriately. Psych: Pleasant affect, appropriate to the situation. Lab/Radiology/Diagnostic Review: Laboratory review: Lab results in the last 24 hours: Recent Results (from the past 24 hour(s)) Comprehensive metabolic panel Collection Time: 12/21/19 1:49 PM Result Value Ref Range Sodium 137 135 - 145 mmol/L Potassium, pl 4.1 3.3 - 4.9 mmol/L Chloride 103 97 - 110 mmol/L CO2 25 22 - 32 mmol/L Anion gap 9 2 - 15 mmol/L BUN 10 8 - 25 mg/dL Creatinine 0.81 0.80 - 1.30 mg/dL Glucose 95 70 - 199 mg/dL Calcium 8.8 8.5 - 10.3 mg/dL Bilirubin, total 0.8 0.1 - 1.2 mg/dL Protein, pl 6.0 (L) 6.5 - 8.5 g/dL Albumin 3.7 3.5 - 5.0 g/dL Alk phos 459 (H) 40 - 130 Units/L ALT 57 (H) 7 - 55 Units/L AST 55 (H) 10 - 50 Units/L CBC with auto differential Collection Time: 12/21/19 1:49 PM Result Value Ref Range WBC 6.5 3.8 - 9.9 K/cumm Hgb 14.0 13.0 - 17.5 g/dL Hct 40.0 38.9 - 50.3 % Plt 252 150 - 400 K/cumm MPV 9.7 9.1 - 12.3 fL RBC 4.30 4.30 - 5.80 M/cumm MCV 93.0 81.3 - 96.4 fL MCH 32.6 27.1 - 33.3 pg MCHC 35.0 32.3 - 35.7 g/dL RDW CV 14.8 11.1 - 14.9 % RDW SD 51.0 (H) 35.7 - 48.1 fL NRBC abs 0.00 0.00 - 0.01 K/cumm Sepsis Lactate w/ Reflex Collection Time: 12/21/19 1:49 PM Result Value Ref Range Sepsis Lactate 1.2 0.7 - 2.0 mmol/L Respiratory pathogen PCR Nasopharyngeal Collection Time: 12/21/19 1:49 PM Result Value Ref Range Adenovirus DNA Not Detected Not Detected Coronavirus 229E RNA Not Detected Not Detected Coronavirus HKU1 RNA Not Detected Not Detected Coronavirus NL63 RNA Not Detected Not Detected Coronavirus OC43 RNA Not Detected Not Detected Metapneumovirus RNA Not Detected Not Detected Rhinovirus/Enterovirus RNA Detected (A) Not Detected Influenza A RNA Not Detected Not Detected Influenza B RNA Not Detected Not Detected Parainfluenza Virus 1 RNA Not Detected Not Detected Parainfluenza Virus 2 RNA Not Detected Not Detected Parainfluenza Virus 3 RNA Not Detected Not Detected Parainfluenza Virus 4 Not Detected Not Detected RSV RNA Not Detected Not Detected Bordetella pertussis DNA Not Detected Not Detected Chlamydophila pneumoniae DNA Not Detected Not Detected Mycoplasma pneumoniae DNA Not Detected Not Detected Bordetella parapertussis DNA Not Detected Not Detected Manual Differential Collection Time: 12/21/19 1:49 PM Result Value Ref Range Differential Manual Cells Counted 115 Neutrophil abs 2.4 1.7 - 6.5 K/cumm Imm gran abs 0.1 0.0 - 0.1 K/cumm Lymphocyte abs 3.4 (H) 0.8 - 3.3 K/cumm Monocyte abs 0.5 0.2 - 0.8 K/cumm Basophil abs 0.1 0.0 - 0.1 K/cumm Neutrophil pct 36.5 % Lymphocyte pct 50.5 % Monocyte pct 7.8 % Basophil pct 1.7 % Neutrophilic metamyelocytes 0.9 % Variant lymphs 2.6 % Vacuolation Present (A) RBC morphology Normal POC Blood Gas and Chemistries, Arterial - Collection Time: 12/21/19 2:09 PM Result Value Ref Range Lactate, POC 1.2 0.7 - 2.2 mmol/L Urinalysis reflex to microscopic and culture Urine Collection Time: 12/21/19 3:13 PM Result Value Ref Range Color, ur Yellow Yellow Clarity, ur Clear Clear Specific gravity, ur 1.026 (H) 1.010 - 1.025 pH, urine 6 Protein, ur ql Negative Negative Glucose, ur ql Negative Negative Ketones, ur Negative Negative Bilirubin, ur Negative Negative Blood, ur Negative Negative Urobilinogen, ur 4.0 (A) <2.0 mg/dL Nitrite, ur Negative Negative Leukocyte esterase, ur Negative Negative UA reflex comment Reflex to microscopic UA will be performed. Urinalysis, microscopic only Collection Time: 12/21/19 3:13 PM Result Value Ref Range WBC, ur 0-5 0 - 5 /HPF RBC, ur 0-2 0 - 2 /HPF Bacteria, ur Trace (A) Mucous, ur Present (A) Culture Reflex Comment Reflex conditions for urine culture (WBC >10) not met. Chest X ray 2 views of the chest are compared to radiograph dated 10/10/2019. Numerous surgical clips are redemonstrated in the right hemiabdomen and left upper quadrant. Surgical clips are also noted in the right neck. ?? Previously seen pulmonary nodule in the right midlung is decreased in size compared to prior study. A new pulmonary nodule is seen in the left midlung measuring 6 mm. Known pulmonary nodules are better evaluated on CT. No pneumothorax or pleural effusion is seen. No pulmonary edema is seen. Hilar lymphadenopathy is redemonstrated. The heart is normal in size. ECG normal sinus rhythm. Assessment and Plan: #Fever and Productive cough Patient is 20 years post liver txp on chronic immunosupression (tacrolimus) s/p treatment for EBV+ PTLD. He has had CMV viremia for about 1.5 months and presents today with new fevers and productive cough. This is concerning for new infection, like URI/flu. His clear lungs on physical exam, stable O2 saturations, and CXR are not indicative of PNA. UA bland and lactate 1.2. RVP came back positive for rhinovirus/enterovirus. Vanc + cefepime was started in the ED for empiric therapy, and given 2L LR. -Consult ID/ transplant for antibiotic recommendations. -Continue valgancyclovir 900mg BID. -Blood cultures (filamentous fungus cultures) #PTLD Patient follows every [address] Head. PET in October showed increased adenopathy diffusely relative to 01/03/2019 and peripheral mildly FDG- avid bilateral opacities in the lung, but biopsy was negative. High risk for relapse or progression to aggressive lymphoma -CTM #Liver transplant Patient received liver txp 20 years ago for autoimmune hepatitis. -Continue tacrolimus -LFT stable AST 55 and ALT 57; alk phos 459 -Albumin stable -Creatnine 0.81, at baseline Cosigned by Boston Palmer MD at 12/22/2019 4:26 PM SCHOOL SUPERVISOR OL SUPERVISOR OL SUPERVISOR OL SUPERVISOR * Subjective & Objective - Sussy Stone MD - 12/21/2019 5:06 PM SCHOOL SUPERVISOR History and Physical Name: Beka Nichols Today: December 21, 2019 : 1995 Age: 24 y.o. male Subjective The patient is a 24 y.o. male with chief complaint of fever and cough productive of yellow sputum. 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 Patient reports that he developed a sore throat, fever, and cough productive of yellow sputum 2 days ago. He states that he was febrile to 100 yesterday morning, went to work for half a day, and thenfelt ill and returned home. Later in the day he was febrile to 102. Patient reports that he called his liver transplant physician who advised him to present to the hospital. Patient denies any hemoptysis, headaches, dizziness, CP, SOB, abdominal pain, n/v/d. Of note, patient noted to have CMV viremia on 11/08/19, with titer of 508. Following this his prophylactic valgancyclovir was increased to treatment dose of 900mg BID. Titers have continued to increase: 530 on 12/02, 626 on 12/09, 940 on 12/16. Of note, patient had a recent hospitalization 10/10/19-10/13/19 for treatment of pneumonia. He was treated with empiric antibiotics and had RVP positive for adenovirus and parainfluenza virus. On presentation to the ED, the patient had VS T 37.6, HR 96, RR 16, BP 109/59, SpO2 97% on room air. Labs were notable for WBC count of 6.5. RVP positive for rhinovirus. Past Medical History: Diagnosis Date ??? CMV [...] BIOPSY LYMPH NODE SUPERFICIAL N/A 10/13/2019 No current facility-administered medications on file prior to encounter. Current Outpatient Medications on File Prior to Encounter Medication Sig ??? acyclovir (ZOVIRAX) 400 mg tablet Take 450 mg by mouth every 4 (four) hours while awake ??? tacrolimus (PROGRAF) 0.5 mg capsule Take 1 capsule (0.5 mg total) by mouth 2 (two) times a day ??? tacrolimus (PROGRAF) 0.5 mg capsule ??? valGANciclovir (VALCYTE) 450 mg tablet Take 2 tablets (900 mg total) by mouth 2 (two) times a day ??? [DISCONTINUED] valGANciclovir (VALCYTE) 450 mg tablet Take 2 tablets (900 mg total) by mouth 2 (two) times a day No Known Allergies Social History Tobacco Use [...] by TW Conv) ??? Anesthesia problems Other Family History reviewed and non-contributory. Review of Systems All other systems were reviewed and are negative except for malaise, fatigue, cough. Objective Vitals: 24hr Min/Max: Temp Min: 37.6 ??C (99.7 ??F) Max: 38.1 ??C (100.6 ??F) Pulse Min: 75 Max: 96 BP Min: 103/59 Max: 110/66 Resp Min: 16 Max: 16 SpO2 Min: 93 % Max: 97 % Most Recent Vitals: Vitals: 12/21/19 1444 BP: Pulse: Resp: Temp: 38 ??C (100.4 ??F) SpO2: Intake/Output Summary (Last 24 hours) at 12/21/2019 1708 Last data filed at 12/21/2019 1537 Gross per 24 hour Intake 20 ml Output -- Net 20 ml Physical Exam Constitutional: NAD, well developed, well nourished Eyes: PERRL, EOMI, anicteric ENT: NCAT, oropharynx normal, moist mucus membranes Lungs: Clear to auscultation in all lung more, unlabored, trachea midline Cardiovascular: RRR, normal S1 and S2, no murmurs, no JVD GI: Soft, non-tender, non-distended, bowel sounds +, no organomegaly Skin: No new rashes, lesions or bruises Extremities: Normal without edema or cyanosis Lymph: Prominent LAD behind ears bilaterally Neurologic: AOx4, CNII-XII intact, normal strength and sensation Psychiatric: Normal affect and mood Lab/Diagnostic Review: Recent Results (from the past 36 hour(s)) Comprehensive metabolic panel Collection Time: 12/21/19 1:49 PM Result Value Ref Range Sodium 137 135 - 145 mmol/L Potassium, pl 4.1 3.3 - 4.9 mmol/L Chloride 103 97 - 110 mmol/L CO2 25 22 - 32 mmol/L Anion gap 9 2 - 15 mmol/L BUN 10 8 - 25 mg/dL Creatinine 0.81 0.80 - 1.30 mg/dL Glucose 95 70 - 199 mg/dL Calcium 8.8 8.5 - 10.3 mg/dL Bilirubin, total 0.8 0.1 - 1.2 mg/dL Protein, pl 6.0 (L) 6.5 - 8.5 g/dL Albumin 3.7 3.5 - 5.0 g/dL Alk phos 459 (H) 40 - 130 Units/L ALT 57 (H) 7 - 55 Units/L AST 55 (H) 10 - 50 Units/L CBC with auto differential Collection Time: 12/21/19 1:49 PM Result Value Ref Range WBC 6.5 3.8 - 9.9 K/cumm Hgb 14.0 13.0 - 17.5 g/dL Hct 40.0 38.9 - 50.3 % Plt 252 150 - 400 K/cumm MPV 9.7 9.1 - 12.3 fL RBC 4.30 4.30 - 5.80 M/cumm MCV 93.0 81.3 - 96.4 fL MCH 32.6 27.1 - 33.3 pg MCHC 35.0 32.3 - 35.7 g/dL RDW CV 14.8 11.1 - 14.9 % RDW SD 51.0 (H) 35.7 - 48.1 fL NRBC abs 0.00 0.00 - 0.01 K/cumm Sepsis Lactate w/ Reflex Collection Time: 12/21/19 1:49 PM Result Value Ref Range Sepsis Lactate 1.2 0.7 - 2.0 mmol/L POC Blood Gas and Chemistries, Arterial - Collection Time: 12/21/19 2:09 PM Result Value Ref Range Lactate, POC 1.2 0.7 - 2.2 mmol/L Urinalysis reflex to microscopic and culture Urine Collection Time: 12/21/19 3:13 PM Result Value Ref Range Color, ur Yellow Yellow Clarity, ur Clear Clear Specific gravity, ur 1.026 (H) 1.010 - 1.025 pH, urine 6 Protein, ur ql Negative Negative Glucose, ur ql Negative Negative Ketones, ur Negative Negative Bilirubin, ur Negative Negative Blood, ur Negative Negative Urobilinogen, ur 4.0 (A) <2.0 mg/dL Nitrite, ur Negative Negative Leukocyte esterase, ur Negative Negative UA reflex comment Reflex to microscopic UA will be performed. Urinalysis, microscopic only Collection Time: 12/21/19 3:13 PM Result Value Ref Range WBC, ur 0-5 0 - 5 /HPF RBC, ur 0-2 0 - 2 /HPF Bacteria, ur Trace (A) Mucous, ur Present (A) Culture Reflex Comment Reflex conditions for urine culture (WBC >10) not met. I have reviewed the laboratory results. Imaging Results: ECG 12 lead David Benjamin MD 12/21/2019 2:01 PM ECG 12 lead Date/Time: 12/21/2019 2:00 PM Performed by: David Benjamin MD Authorized by: Nancy Fischer MD Rate: ECG rate: 82 ECG rate assessment: normal Rhythm: Rhythm: sinus rhythm Ectopy: Ectopy: none QRS: QRS axis: Normal QRS intervals: Normal Conduction: Conduction: normal ST segments: ST segments: Normal T waves: T waves: inverted Inverted: V1, V2 and V3 Previous ECG: Previous ECG: Unavailable Interpretation: Interpretation: non-specific Recommended Follow-up: Recommended follow up: further workup in the ED XR Chest Pa Lateral 2 Vw Narrative: EXAMINATION: 2 view chest radiograph Impression: 2 views of the chest are compared to radiograph dated 10/10/2019. Numerous surgical clips are redemonstrated in the right hemiabdomen and left upper quadrant. Surgical clips are also noted in the right neck. Previously seen pulmonary nodule in the right midlung is decreased in size compared to prior study. A new pulmonary nodule is seen in the left midlung measuring 6 mm. Known pulmonary nodules are better evaluated on CT. No pneumothorax or pleural effusion is seen. No pulmonary edema is seen. Hilar lymphadenopathy is redemonstrated. The heart is normal in size. Electronically signed by: Sofia Arevalo M.D. I have independently reviewed and interpreted CXR, ECG OL SUPERVISOR OL SUPERVISOR OL SUPERVISOR * ED Re-evaluation Note - Radha Alonzo MD - 12/21/2019 3:45 PM SCHOOL SUPERVISOR ED Re-evaluation TRANSITION OF CARE: I, Radha Alonzo MD, am taking signout from Dr Fischer (Resident) under supervision of Dr Brooke (Attending). I have reviewed all pertinent vital signs, allergies, and history available in the chart. Summary: 24 y.o. male with hx of non-hodgkins lymphoma with autoimmune hepatitis s/p liver transplant on tacro. Developed CMV 1 month ago, now on antiretrovirals. Been getting weaker for the past fewdays, febrile with tmax 102 at home. Has a productive cough. On vanc/cefe, awaiting callback from tr ansplant ID. Pending: Transplant ID recs Dispo: Admit to medicine Radha Alonzo MD Resident 12/21/19 [id number] OL SUPERVISOR * ED Procedure Note - David Benjamin MD - 12/21/2019 2:00 PM CSTAssociated Order(s): ECG 12 lead Procedure ECG 12 lead Date/Time: 12/21/2019 2:00 PM Performed by: David Benjamin MD Authorized by: Nancy Fischer MD Rate: ECG rate: 82 ECG rate assessment: normal Rhythm: Rhythm: sinus rhythm Ectopy: Ectopy: none QRS: QRS axis: Normal QRS intervals: Normal Conduction: Conduction: normal ST segments: ST segments: Normal T waves: T waves: inverted Inverted: V1, V2 and V3 Previous ECG: Previous ECG: Unavailable Interpretation: Interpretation: non-specific Recommended Follow-up: Recommended follow up: further workup in the ED David Benjamin MD 12/21/19 1401 OL SUPERVISOR * ED Pre-Arrival Note - Tosha Valentine RN - 12/21/2019 9:41 AM SCHOOL SUPERVISOR Pre-Arrival Note Patient called in by Liver Transplant office, patient had liver transplant 20 years ago Recently fighting a CMV infection, but today had a fever of 102. Both the Liver transplant MD and infectious disease suggested pt come to ED for further evaluation and treatment. Tosha Sabillon RN OL SUPERVISOR documented in this encounter Plan of Treatment Scheduled Procedures Name Priority Associated Diagnoses Date/Ti wv COLONOSCOPY Encounter for screening for colorectal cancer in high risk patient Family history of rectal cancer documented as of this encounter Procedures Procedure Name Priority Date/Time Associated Diagnosis Comments CYTOMEGALOVIRUS (CMV) DNA, QUANT GEN LAB STAT 12/22/2019 1:38 PM SCHOOL SUPERVISOR TOXOPLASMA ANTIBODIES IGG AND IGM STAT 12/21/2019 9:47 PM SCHOOL SUPERVISOR NADINE BORREGO VIRUS PCR, QUANTITATIVE STAT 12/21/2019 9:47 PM SCHOOL SUPERVISOR BARTONELLA ANTIBODY PANEL Routine 12/21/2019 9:47 PM SCHOOL SUPERVISOR URINALYSIS AND REFLEX TO MICROSCOPIC AND CULTURE STAT 12/21/2019 3:13 PM SCHOOL SUPERVISOR URINALYSIS, MICROSCOPIC ONLY STAT 12/21/2019 3:13 PM SCHOOL SUPERVISOR POC BLOOD GAS AND CHEMISTRIES, ARTERIAL Routine 12/21/2019 2:09 PM SCHOOL SUPERVISOR ECG 12-LEAD STAT 12/21/2019 2:00 PM SCHOOL SUPERVISOR SEPSIS LACTATE WITH REFLEX STAT 12/21/2019 1:49 PM SCHOOL SUPERVISOR RESPIRATORY PATHOGEN PANEL STAT 12/21/2019 1:49 PM SCHOOL SUPERVISOR CBC WITH AUTO DIFFERENTIAL STAT 12/21/2019 1:49 PM SCHOOL SUPERVISOR MANUAL DIFFERENTIAL STAT 12/21/2019 1 :49 PM SCHOOL SUPERVISOR BLOOD CULTURE STAT 12/21/2019 1:49 PM SCHOOL SUPERVISOR BLOOD CULTURE STAT 12/21/2019 1:49 PM SCHOOL SUPERVISOR COMPREHENSIVE METABOLIC PANEL STAT 12/21/2019 1:49 PM SCHOOL SUPERVISOR XR CHEST PA LATERAL 2 VIEWS ED 12/21/2019 1:12 PM SCHOOL SUPERVISOR documented in this encounter Results * (ABNORMAL) Cytomegalovirus (CMV) DNA PCR, quantitative Blood (12/22/2019 1:38 PM SCHOOL SUPERVISOR) CMV DNA Detected( A) [facility] Comment: Interpretive Data: The quantifiable range of this assay is 137 IUnits/mL to 9,100,000 IUnits/mL (2.14 log IUnits/mL to 6.96 log IUnits/mL). Testing was performed by the [employer]IA AmpliPrep/NIA TaqMan CMV Test ([employer] Testing performed at [facility] Current interpretive data was last revised on 17. CMV DNA IU/mL 500 IUnits/mL [facility] CMV DNA log IU/mL 2.70 log IUnits/mL [facility] Blood specimen (specimen) 12/22/2019 1:38 PM SCHOOL SUPERVISOR 12/22/2019 10:29 PM SCHOOL SUPERVISOR Narrative [facility] - 12/23/2019 7:12 AM SCHOOL SUPERVISOR THE COLLECTION LOCATION IS [id number]-[id number] us Melia STUART LAB MICROBIOLOGY - GENERA L ORDERABLES Final Result [facility] [place] [address] * Toxoplasma antibodies, IgG and IgM (12/21/2019 9:47 PM SCHOOL SUPERVISOR) Pathologist [facility] Toxoplasma IgG Negative Negative [facility] Comment: Interpretive Data Negative - ??No detectable antibody. Equivocal - Presence of detectable antibody cannot be determined. Positive - ??Detectable level of antibody present. Current interpretive data was last revised on 2017. Toxoplasma IgM Negative Negative [facility] Blood specimen (specimen) 12/21/2019 9:47 PM SCHOOL SUPERVISOR 12/21/2019 9:55 PM SCHOOL SUPERVISOR Narrative [facility] - 12/22/2019 11:01 AM SCHOOL SUPERVISOR THE BJ COLLECTION LOCATION IS [facility] ED1-17 us Radha Alonzo MD LAB MICROBIOLOGY - G ENERAL ORDERABLES Final Result Performing Organization Address [facility] de Phone Number [facility] [place] [address] * Bartonella anitbody panel (12/21/2019 9:47 PM SCHOOL SUPERVISOR) [facility] B Henselae, IgG <1:128 <1:128 titer [facility] B Henselae, IgM <1:20 <1:20 titer [facility] B. Mata, IgG <1:128 <1:128 titer [facility] B. Mata, IgM <1:20 <1:20 titer [facility] Comment: ADDITIONAL INFORMATION This test was developed and its performance characteristics determined by [facility] in a manner consistent with CLIA requirements. This test has not been cleared or approved by the U.S. Food and Drug Administration. Test Performed by: [place] [address] Metal Treater: Jason Sandy M.D. Ph.D.; CLIA# [id number] Blood specimen (specimen) 12/21/2019 9:47 PM SCHOOL SUPERVISOR 12/21/2019 10:38 PM SCHOOL SUPERVISOR Narrative [facility] - 12/25/2019 5:15 AM SCHOOL SUPERVISOR THE BJ COLLECTION LOCATION IS [facility] ED1-17 us Radha Alonzo MD LAB MICROBIOLOGY - G ENERAL ORDERABLES Final Result Performing Organization Address [facility] Co de Phone Number [facility] [place] [address] * (ABNORMAL) Nadine borrego virus (EBV) PCR, quantitative Blood (12/21/2019 9:47 PM SCHOOL SUPERVISOR) Report Final Report: Positive for Nadine Borrego Virus For additional result information, see attached scanned report. (.) [facility] Organism POSITIVE FOR NADINE BORREGO VIRUS [facility] Blood specimen (specimen) 12/21/2019 9:47 PM SCHOOL SUPERVISOR 12/21/2019 11:14 PM SCHOOL SUPERVISOR Narrative [facility] - 12/26/2019 1:36 AM SCHOOL SUPERVISOR THE BJ COLLECTION LOCATION IS [facility] ED1-17 Testing performed by: [facility], [address] [place] [id number]. ??The current assay method which is derived from testing plasma, does not correlate well with results generated using the previous assay method that tested whole blood. ??This test was developed using an analyte specific reagent. Its performance characteristics were determined by [facility] in a manner consistent with CLIA requirements. This test has not been cleared or approved by the U.S Food and Drug Administration. ??This laboratory-developed, real time PCR assay has a quantifications range of 100 - 5,000,000 IU/mL (2.00 log IU/mL to 6.70 log IU/mL). us Radha Alonzo MD LAB MICROBIOLOGY - G ENERAL ORDERABLES Final Result Performing Organization Address City/[facility]/ZIP Co de Phone Number [facility] [place] [address] * (ABNORMAL) Urinalysis, microscopic only (12/21/2019 3:13 PM SCHOOL SUPERVISOR) WBC, ur 0-5 0 - 5 /HPF [facility] RBC, ur 0-2 0 - 2 /HPF [facility] Bacteria, ur Trace(A) [facility] Mucous, ur Present(A) [facility] Culture Reflex Comment Reflex conditions for urine culture (WBC >10) not met. [facility] Urine 12/21/2019 3:13 PM SCHOOL SUPERVISOR 12/21/2019 3:21 PM SCHOOL SUPERVISOR us Nancy Fischer MD LAB URINE ORDERABLES Final Result [facility] [place] [address] * (ABNORMAL) Urinalysis reflex to microscopic and culture Urine (12/21/2019 3:13 PM SCHOOL SUPERVISOR) Color, ur Yellow Yellow [facility] Clarity, ur Clear Clear [facility] Specific gravity, ur 1.026(H) 1.010 - 1.025 [facility] pH, urine 6 [facility] Protein, ur ql Negative Negative [facility] Glucose, ur ql Negative Negative [facility] Ketones, ur Negative Negative [facility] Bilirubin, ur Negative Negative [facility] Blood, ur Negative Negative [facility] Comment:Ascorbic acid identi fied in urine; possible false negative blood result. A microscopic exam will be added to identify RBCs. Urobilinogen, ur 4.0(A) <2.0 mg/dL [facility] Nitrite, ur Negative Negative [facility] Leukocyte esterase, ur Negative Negative [facility] UA reflex comment Reflex to microscopic UA will be performed. [facility] Urine 12/21/2019 3:13 PM SCHOOL SUPERVISOR 12/21/2019 3:21 PM SCHOOL SUPERVISOR Narrative [facility] - 12/21/2019 3:32 PM SCHOOL SUPERVISOR THE BJ COLLECTION LOCATION IS [facility] ED1-17 Urine pH is affected by diet, medications, systemic acid-base disturbances, and renal tubular function. ??pH may affect urinary stone formation. ??For example, urine pH below 6.0 may help reduce the tendency for calcium phosphate stones and pH greater than 6.0 may reduce the tendency for uric acid stone formation. Source: [employer] Last revised 11-11-2017 us Nancy Fischer MD LAB MICROBIOLOGY - GENERAL ORDERABLES Final Result [facility] [place] [address] * POC Blood Gas and Chemistries, Arterial - (12/21/2019 2:09 PM SCHOOL SUPERVISOR) Lactate, POC 1.2 0.7 - 2.2 mmol/L [facility] Blood specimen (specimen) 12/21/2019 2:09 PM SCHOOL SUPERVISOR 12/21/2019 2:09 PM SCHOOL SUPERVISOR us Notinfile Unknown LAB POCT ORDERABLES - DEVICE F inal Result [facility] [place] [address] * ECG 12-LEAD (12/21/2019 2:00 PM SCHOOL SUPERVISOR) Narrative [facility] - 12/21/2019 2:00 PM SCHOOL SUPERVISOR David Benjamin MD ? 12/21/2019 ??2:01 PM ECG 12 lead Date/Time: 12/21/2019 2:00 PM Performed by: David Benjamin MD Authorized by: Nancy Fischer MD Rate: ??ECG rate: ??82 ??ECG rate assessment: normal ?? Rhythm: ??Rhythm: sinus rhythm ?? Ectopy: ??Ectopy: none ?? QRS: ??QRS axis: ??Normal ??QRS intervals: ??Normal Conduction: ??Conduction: normal ?? ST segments: ??ST segments: ??Normal T waves: ??T waves: inverted ?Inverted: ??V1, V2 and V3 Previous ECG: ??Previous ECG: ??Unavailable Interpretation: ??Interpretation: non-specific ?? Recommended Follow-up: ??Recommended follow up: further workup in the ED ?? Procedure Note David Benjamin MD - 12/21/2019 2:00 PM CST Procedure ECG 12 lead Date/Time: 12/21/2019 2:00 PM Performed by: David Benjamin MD Authorized by: Nancy Fischer MD Rate: ECG rate: 82 ECG rate assessment: normal Rhythm: Rhythm: sinus rhythm Ectopy: Ectopy: none QRS: QRS axis: Normal QRS intervals: Normal Conduction: Conduction: normal ST segments: ST segments: Normal T waves: T waves: inverted Inverted: V1, V2 and V3 Previous ECG: Previous ECG: Unavailable Interpretation: Interpretation: non-specific Recommended Follow-up: Recommended follow up: further workup in the ED David Benjamin MD 12/21/19 1401 us Nancy Fischer MD ECG ORDERABLES Final Resul [facility] * (ABNORMAL) Manual Differential (12/21/2019 1:49 PM SCHOOL SUPERVISOR) Differential Manual [facility] Cells Counted 115 [facility] Neutrophil abs 2.4 1.7 - 6.5 K/cumm [facility] gran abs 0.1 0.0 - 0.1 K/cumm [facility] Lymphocyte abs 3.4(H) 0.8 - 3.3 K/cumm [facility] Monocyte abs 0.5 0.2 - 0.8 K/cumm [facility] Basophil abs 0.1 0.0 - 0.1 K/cumm [facility] Neutrophil pct 36.5 % [facility] Comment: Interpretive Data Percent cell count reference ranges are not reported, since discordance with absolute values may lead to misinterpretation of CBC data. Current Interpretive Data was last revised on 2018. Lymphocyte pct 50.5 % [facility] Comment: Interpretive Data Percent cell count reference ranges are not reported, since discordance with absolute values may lead to misinterpretation of CBC data. Current Interpretive Data was last revised on 2018. Monocyte pct 7.8 % [facility] Comment: Interpretive Data Percent cell count reference ranges are not reported, since discordance with absolute values may lead to misinterpretation of CBC data. Current Interpretive Data was last revised on 2018. Basophil pct 1.7 % [facility] Comment: Interpretive Data Percent cell count reference ranges are not reported, since discordance with absolute values may lead to misinterpretation of CBC data. Current Interpretive Data was last revised on 2018. Metamyelocyte pct 0.9 % [facility] Variant lymph pct 2.6 % [facility] Vacuolation Present(A) [facility] RBC morphology Normal [facility] Blood specimen (specimen) 12/21/2019 1:49 PM SCHOOL SUPERVISOR 12/21/2019 2:32 PM SCHOOL SUPERVISOR us Nancy Fischer MD LAB BLOOD ORDERABLES Edited Result - Final [facility] [place] [address] * (ABNORMAL) Respiratory pathogen PCR Nasopharyngeal (12/21/2019 1:49 PM SCHOOL SUPERVISOR) Pathologist [facility] Adenovirus DNA Not Detected Not Detected [facility] Coronavirus 229E RNA Not Detected Not Detected [facility] Coronavirus HKU1 RNA Not Detected Not Detected [facility] Coronavirus NL63 RNA Not Detected Not Detected [facility] Coronavirus OC43 RNA Not Detected Not Detected [facility] Metapneumovirus RNA Not Detected Not Detected [facility] Rhinovirus/Enterov irus RNA Detected(A) Not Detected [facility] Influenza A RNA Not Detected Not Detected [facility] Influenza B RNA Not Detected Not Detected [facility] Parainfluenza 1 RNA Not Detected Not Detected [facility] Parainfluenza 2 RNA Not Detected Not Detected [facility] Parainfluenza 3 RNA Not Detected Not Detected [facility] Parainfluenza 4 RNA Not Detected Not Detected [facility] RSV RNA Not Detected Not Detected [facility] B. pertussis DNA Not Detected Not Detected [facility] C. pneumoniae DNA Not Detected Not Detected [facility] M. pneumoniae DNA Not Detected Not Detected [facility] B. parapertussis DNA Not Detected Not Detected [facility] Comment: The [email or web address] FilmArray Respiratory Panel (RP2) assay is a multiplexed nucleic acid test capable of simultaneous qualitative detection and identification of multiple respiratory viral and bacterial nucleic acids. The following bacteria, viruses and virus subtypes can be identified using the FilmArray RP2 assay: Bordetella pertussis, Bordetella parapertussis, Chlamydophila pneumoniae, Mycoplasma pneumoniae, Adenovirus, Coronavirus HKU1, Coronavirus NL63, Coronavirus 229E, Coronavirus OC43, Influenza A, Influenza A subtype H1, Influenza A subtype H3, Influenza A subtype 2009 H1, Influenza B, Metapneumovirus, Parainfluenza 1, Parainfluenza 2, Parainfluenza 3, Parainfluenza 4, RSV, Rhinovirus/Enterovirus. Due to the genetic similarity between human Rhinovirus and Enterovirus, the FilmArray RP2 assay cannot reliably differentiate them. Coronavirus OC43 [...] test. ??Positive results do not rule out infection/co- infection with other organisms. ??The agent(s) detected by the FilmArray RP2 may not be the definite cause of disease. ??Additional testing (lab, imaging, etc.) may be necessary when evaluating a patient with possible respiratory tract infection. The FilmArray RP2 assay is FDA cleared for CLIENT SERVICE PROFESSIONAL swabs. ??Additional sample types have been validated according to CLIA regulations. The performance characteristics of this assay have been determined by [facility] Molecular Infectious Disease Laboratory. Current interpretive data was last revised on 2018. Nasopharyngeal 12/21/2019 1: 49 PM SCHOOL SUPERVISOR 12/21/2019 3:22 PM SCHOOL SUPERVISOR Narrative [facility] - 12/21/2019 5:13 PM SCHOOL SUPERVISOR THE COLLECTION LOCATION IS [facility] Nancy Fischer MD LAB MICROBIOLOGY - GENERAL ORDERABLES Final Result [facility] Department [place] [address] * Blood culture Blood Peripheral (12/21/2019 1:49 PM SCHOOL SUPERVISOR) Report Final Report: No growth [facility] Blood specimen (specimen) (Peripheral) 12/21/2019 1:49 PM SCHOOL SUPERVISOR 12/21/2019 2:23 PM SCHOOL SUPERVISOR Narrative [facility] - 12/26/2019 4:00 PM SCHOOL SUPERVISOR From a different site than #1. Draw Blood cultures before administration of Antibiotics THE COLLECTION LOCATION IS [place] [address] 1. Blood cultures are incubated for 5 [...] organism identification may be performed using the [employer] Gram-Positive Blood Culture Assay. This assay detects microbial DNA in positive blood culture broth via hybridization of target DNA to capture oligonucleotides on a microarray. This assay has been cleared by the [place] Food and Drug Administration and its performance characteristics have been verified by the [facility] Microbiology Laboratory. 5. For questions about this culture, contact the Microbiology Laboratory at [phone]. Interpretive data was last revised on 2018. Nancy Fischer MD LAB MICROBIOLOGY - GENERAL ORDERABLES Final Result [facility] [place] [address] * Blood culture Blood Peripheral (12/21/2019 1:49 PM SCHOOL SUPERVISOR) Report Final Report: No growth [facility] Blood specimen (specimen) (Peripheral) 12/21/2019 1:49 PM SCHOOL SUPERVISOR 12/21/2019 2:23 PM SCHOOL SUPERVISOR Narrative [facility] - 12/26/2019 4:00 PM SCHOOL SUPERVISOR Draw Blood cultures before administration of Antibiotics THE COLLECTION LOCATION IS [place] [address] 1. Blood cultures are incubated for 5 [...] organism identification may be performed using the [employer] Gram-Positive Blood Culture Assay. This assay detects microbial DNA in positive blood culture broth via hybridization of target DNA to capture oligonucleotides on a microarray. This assay has been cleared by the [place] Food and Drug Administration and its performance characteristics have been verified by the [facility] Microbiology Laboratory. 5. For questions about this culture, contact the Microbiology Laboratory at [phone]. Interpretive data was last revised on 2018. Nancy Fischer MD LAB MICROBIOLOGY - GENERAL ORDERABLES Final Result [facility] [place] [address] * Sepsis Lactate w/ Reflex (12/21/2019 1:49 PM SCHOOL SUPERVISOR) Sepsis Lactate 1.2 0.7 - 2.0 mmol/L [facility] Blood specimen (specimen) 12/21/2019 1:49 PM SCHOOL SUPERVISOR 12/21/2019 2:13 PM SCHOOL SUPERVISOR Narrative [facility] - 12/21/2019 2:16 PM SCHOOL SUPERVISOR THE COLLECTION LOCATION IS [facility] ED1-17 Nancy Fischer MD LAB BLOOD ORDERABLES Final Result [facility] [place] [address] * (ABNORMAL) CBC with auto differential (12/21/2019 1:49 PM SCHOOL SUPERVISOR) [facility] WBC 6.5 3.8 - 9.9 K/cumm [facility] Hgb 14.0 13.0 - 17.5 g/dL [facility] Hct 40.0 38.9 - 50.3 % [facility] Plt 252 150 - 400 K/cumm [facility] MPV 9.7 9.1 - 12.3 fL [facility] RBC 4.30 4.30 - 5.80 M/cumm [facility] MCV 93.0 81.3 - 96.4 fL [facility] MCH 32.6 27.1 - 33.3 pg [facility] MCHC 35.0 32.3 - 35.7 g/dL [facility] RDW CV 14.8 11.1 - 14.9 % [facility] RDW SD 51.0(H) 35.7 - 48.1 fL [facility] NRBC abs 0.00 0.00 - 0.01 K/cumm [facility] Blood specimen (specimen) 12/21/2019 1:49 PM SCHOOL SUPERVISOR 12/21/2019 2:29 PM SCHOOL SUPERVISOR Narrative [facility] - 12/21/2019 2:36 PM SCHOOL SUPERVISOR THE COLLECTION LOCATION IS [facility] ED1-17 us Nancy Fischer MD LAB BLOOD ORDERABLES Final Result [facility] [place] [address] * (ABNORMAL) Comprehensive metabolic panel (12/21/2019 1:49 PM SCHOOL SUPERVISOR) [facility] Sodium 137 135 - 145 mmol/L [facility] Potassium, pl 4.1 3.3 - 4.9 mmol/L [facility] Chloride 103 97 - 110 mmol/L [facility] CO2 25 22 - 32 mmol/L [facility] Anion gap 9 2 - 15 mmol/L [facility] BUN 10 8 - 25 mg/dL [facility] Creatinine 0.81 0.80 - 1.30 mg/dL [facility] Glucose 95 70 - 199 mg/dL [facility] 2017. Calcium 8.8 8.5 - 10.3 mg/dL [facility] Bilirubin, total 0.8 0.1 - 1.2 mg/dL [facility] Protein, pl 6.0(L) 6.5 - 8.5 g/dL [facility] Albumin 3.7 3.5 - 5.0 g/dL [facility] Alk phos 459(H) 40 - 130 Units/L [facility] ALT 57(H) 7 - 55 Units/L [facility] AST 55(H) 10 - 50 Units/L [facility] Blood specimen (specimen) 12/21/2019 1:49 PM SCHOOL SUPERVISOR 12/21/2019 2:29 PM SCHOOL SUPERVISOR Narrative [facility] - 12/21/2019 2:53 PM SCHOOL SUPERVISOR THE COLLECTION LOCATION IS [facility] ED1-17 Nancy Fischer MD LAB BLOOD ORDERABLES Final Result [facility] [place] [address] * XR Chest Pa Lateral 2 Vw (12/21/2019 1:12 PM SCHOOL SUPERVISOR) Anatomical Region Laterality Modality Body, Chest N/A Computed Radiogr aphy 12/21/2019 1:24 PM SCHOOL SUPERVISOR Impressions 12/21/2019 1:24 PM SCHOOL SUPERVISOR 2 views of the chest are compared to radiograph dated 10/10/2019. ??Numerous surgical clips are redemonstrated in the right hemiabdomen and left upper quadrant. ??Surgical clips are also noted in the right neck. Previously seen pulmonary nodule in the right midlung is decreased in size compared to prior study. ??A new pulmonary nodule is seen in the left midlung measuring 6 mm. ??Known pulmonary nodules are better evaluated on CT. ??No pneumothorax or pleural effusion is seen. ??No pulmonary edema is seen. ??Hilar lymphadenopathy is redemonstrated. The heart is normal in size. Electronically signed by: Sofia Arevalo M.D. Narrative 12/21/2019 1:24 PM SCHOOL SUPERVISOR EXAMINATION: 2 view chest radiograph Procedure Note Sofia Arevalo MD - 12/21/2019 EXAMINATION: 2 view chest radiograph IMPRESSION: 2 views of the chest are compared to radiograph dated 10/10/2019. Numerous surgical clips are redemonstrated in the right hemiabdomen and left upper quadrant. Surgical clips are also noted in the right neck. Previously seen pulmonary nodule in the right midlung is decreased in size compared to prior study. A new pulmonary nodule is seen in the left midlung measuring 6 mm. Known pulmonary nodules are better evaluated on CT. No pneumothorax or pleural effusion is seen. No pulmonary edema is seen. Hilar lymphadenopathy is redemonstrated. The heart is normal in size. Electronically signed by: Sofia Arevalo M.D. 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 Upper respiratory infection Acute upper respiratory infections of unspecified site Fever Fever, unspecified documented in this encounter Administered Medications Inactive Administered Medications - up to 3 most recent administrations Medication Order MAR Action Action Date Dose Rate Site acetaminophen (TYLENOL) tablet 1,000 mg 1,000 mg, oral, Once, On Brenda 12/21/19 at 1257, For 1 dose Given 12/21/2019 1:24 PM SCHOOL SUPER[employer]OR 1,000 mg benzonatate (TESSALON) capsule 100 mg 100 mg, oral, Once, On Wed12/22/19 at 0214, For 1 dose, Do not crush, chew, cut, dissolve, open or otherwise manipulate tablet/capsule., Indications: CoughIndications:Cough Given 12/22/2019 2:25 AM SCHOOL SUPER[employer]OR 100 mg cefepime (MAXIPIME) 2,000 mg/20 mL in sterile water (premix) 2,000 mg 2,000 mg, intravenous, at 40 mL/hr, Administer over 30 Minutes, Once, On Brenda 12/21/19 at 1409, For 1 dose, Indications: Pneumonia, Community Acquired, Prophylaxis, Medical, transplant patient with fever, immunosuppressedIndications: Pneumonia, Community Acquired,Prophylaxis, Medical,transplant patient with fever, immunosuppressed New Bag 12/21/2019 3:07 PM SCHOOL SUPER[employer]OR 2,000 mg 40 mL/hr Lactated Ringer's (LR) bolus 1,000 mL 1,000 mL, intravenous, Once, On Brenda 12/21/19 at 1258, For 1 dose New Bag 12/21/2019 1:24 PM SCHOOL SUPER[employer]OR 1,000 mL Lactated Ringer's (LR) infusion 20 mL/hr, intravenous, Continuous, Starting on Brenda 12/21/19 at 1655 Rate/Dose Verify 12/22/2019 2:26 AM SCHOOL SUPER[employer]OR 20 mL/hr 20 mL/hr Rate/Dose Verify 12/21/2019 9:50 PM [employer]CHOOL SUPER[employer]OR 20 mL/hr 20 mL/h r New Bag 12/21/2019 5:30 PM [employer]CHOOL SUPER[employer]OR 20 mL/hr 20 mL/hr tacrolimus (PROGRAF) capsule 0.5 mg 0.5 mg, oral, Every 12 hours scheduled, First dose (after last modification) on Wed12/22/19 at 1009, Avoid grapefruit juice, Indications: immunosuppressionIndications:immunosuppressi on Given 12/22/2019 10:19 AM SCHOOL SUPER[employer]OR 0.5 mg valGANciclovir (VALCYTE) tablet 900 mg 900 mg, oral, 2 times daily, First dose on Brenda 12/21/19 at 1409, Do not crush, chew, cut, dissolve, open or otherwise manipulate tablet/capsule., Indications: Bronchiolitis/pneumoniaIndications:Bronchiol itis/pneumonia Given 12/22/2019 4:04 AM SCHOOL SUPER[employer]OR 900 mg Given 12/21/2019 4:16 PM [employer]CHOOL SUPER[employer]OR 900 mg vancomycin 1,000 mg/200 mL in dextrose 5% (premix) 1,000 mg 1,000 mg, intravenous, Administer over 60 Minutes, Once, On Brenda 12/21/19 at 1409, For 1 dose, Indications: Neutropenic Fever, Other (complete free text reason below), Pneumonia, Community Acquired, Sepsis, transplant patient. immunosuppressed with feverIndications:Neutropenic Fever,Other (complete free text reason below),Pneumonia, Community Acquired,Sepsis,transplant patient. immunosuppressed with fever New Bag 12/21/2019 3:07 PM SCHOOL SUPER[employer]OR 1,000 mg documented in this encounter Active and Recently Administered Medications Times are shown in [employer]OL SUPER[employer]OR. Scheduled Medication Order 12/20/2019 12/21/2019 12/22/2019 acetaminophen (TYLENOL) tablet 1,000 mg (COMPLETED) 1,000 mg, oral, Once, On Brenda 12/21/19 at 1257, For 1 dose 1324 (Given - Provider: Nhung Lee RN) benzonatate (TESSALON) capsule 100 mg (COMPLETED) 100 mg, oral, Once, On Wed12/22/19 at 0214, For 1 dose, Do not crush, chew, cut, dissolve, open or otherwise manipulate tablet/capsule., Indications: Cough 0225 (Given - Provider: Loly Burden RN) cefepime (MAXIPIME) 2,000 mg/20 mL in sterile water (premix) 2,000 mg (COMPLETED) 2,000 mg, intravenous, at 40 mL/hr, Administer over 30 Minutes, Once, On Brenda 12/21/19 at 1409, For 1 dose, Indications: Pneumonia, Community Acquired, Prophylaxis, Medical, transplant patient with fever, immunosuppressed 1507 (New Bag - Provider: Nhung Lee RN)1537 (Stopped - Provider: Nhung Lee RN) Lactated Ringer's (LR) bolus 1,000 mL (COMPLETED) 1,000 mL, intravenous, Once, On Brenda 12/21/19 at 1258, For 1 dose 1324 (New Bag - Provider: Nhung Lee RN)1742 (Stopped - Provider: Nhung Lee RN) tacrolimus (PROGRAF) capsule 0.5 mg 0.5 mg, oral, Every 12 hours scheduled, First dose (after last modification) on Wed12/22/19 at 1009, Avoid grapefruit juice, Indications: immunosuppression 1019 (Given - Provider: Yanelis Crum, RN) valGANciclovir (VALCYTE) tablet 900 mg 900 mg, oral, 2 times daily, First dose on Brenda 12/21/19 at 1409, Do not crush, chew, cut, dissolve, open or otherwise manipulate tablet/capsule., Indications: Bronchiolitis/pneumonia 1616 (Given - Provider: Nhung Lee RN)2100 (Not Given - Provider: Loly Burden, SHAILESH - Reason: Other - Comment: Last dose at 1600 yesterday. Will administer at 12 hr warren) 0404 (Given - Provider: Loly Burden, SHAILESH) vancomycin 1,000 mg/200 mL in dextrose 5% (premix) 1,000 mg (COMPLETED) 1,000 mg, intravenous, Administer over 60 Minutes, Once, On Brenda 12/21/19 at 1409, For 1 dose, Indications: Neutropenic Fever, Other (complete free text reason below), Pneumonia, Community Acquired, Sepsis, transplant patient. immunosuppressed with fever 1507 (New Bag - Provider: Nhung Lee RN)1607 (Stopped - Provider: Nhung Lee RN) Continuous Medication Order 12/20/2019 12/21/2019 12/22/2019 Lactated Ringer's (LR) infusion 20 mL/hr, intravenous, Continuous, Starting on Brenda 12/21/19 at 1655 1730 (New Bag - Provider: Nhung Lee RN)2150 (Rate/Dose Verify - Provider: Kiara Moses RN) 0226 (Rate/Dose Verify - Provider: Loly Burden, SHAILESH)1351 (Stopped - Provider: Yanelis Crum, RN) documented in this encounter Orders Medications Ordered That John ht Not Have Been Administered Count Last Ordered Date First Ordered Date tacrolimus (PROGRAF) capsule 0.5 mg 2 12/2212/21/2019 Consult Count Last Ordered Date First Orde red Date IP CONSULT TO OPHTHALMOLOGY 1 12/22/2019 IP CONSULT TO INFECTIOUS DISEASES 1 020 ADT Patient Update Count Last Ordered Date Firs t Ordered Date PLACE IN ED OBSERVATION 1 12/21/2019 documented in this encounter Additional Health Concerns Infection Onset Date Last Indicated Resolved Time Rhino/Enterovirus 12/21/2019 12/21/2019 12/28/2019 3:05 AM [employer]PER[employer] documented as of this encounter Care Teams Lining Setter Relationship Specialty Start Date End Date Guero Colunga DO PCP - General Internal Medicine 03/22/19 04/18/23 Amber Montesinos, RN Weight Loss Counselor Transplant 11/17/19 documented as of this encounter
--- OUTSIDE RECORDS SUMMARY | 2024-10-28 06:24 | XMS_ITS | Encounter Summary ---
Author Organization [facility] Address [address] [place] [address] Phone Care Team Providers Care Car Rental Agency Manager Name Role Phone Guero Colunga DO Primary Care Provider [phone] Amber Montesinos RN Unavailable [phone] Reason for Referral * Diagnostic Imaging (Routine) - Closed Specialty Diagnoses / Procedures Referred By Contac t Referred To Contact Diagnoses High grade B-cell lymphoma (HCC) Procedures XR Knee Left 3 Views Anita Gillespie MD Phone: tel: fax: [address] [address] Referral ID Status Reason Start Date Expiration Date Visits Re quested Visits Authorized [id number] Closed 11/22/2019 06/02/2021 1 1 SINGER Encounter Details Date Type Department Care Team (Latest Contact Info) Description 11/22/2019 9:15 AM POP SINGER Office Visit [facility] Oncology [address] [place] [address] 7th [place] [address] [place] [address] High grade B-cell lymphoma (CMS/HCC) (Primary Dx); 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) Social History Tobacco Use Types Packs/Day Years Used Date Smoking Tobacco: Never Smokeless Tobacco: Never Sex and Gender Information Value Date Recorded Sex Assigned at Not on file Legal Sex Male 6:28 AM POP SINGER Gender Identity Not on file Sexual Orientation Straight 08/22/2021 9: 23 AM CDT documented as of this encounter Last Filed Vital Signs Vital Sign Reading Time Taken Comments Blood Pressure 111/70 11/22/2019 8:31 AM POP SINGER Pulse 64 11/22/2019 8:31 AM POP SINGER Temperature 36.7 ??C (98 ??F) 11/22/2019 8:31 AM POP SINGER Respiratory Rate 18 11/22/2019 8:30 AM POP SINGER Oxygen Saturation 98% 11/22/2019 8:31 AM POP SINGER Inhaled Oxygen Concentration - - Weight 57.2 kg (126 lb) 11/22/2019 8:30 AM POP SINGER Height - - Body Mass Index 19.16 10/10/2019 8:16 PM POP SINGER documented in this encounter Progress Notes * Yulisa Harris MD - 11/22/2019 12:00 AM CST PATIENT NAME: ADI NICHOLS : 1995 JUSTEN: 11/22/2019 DIAGNOSES: 1. 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 2. 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 3. Bilateral pulmonary emboli diagnosed on 10/19/2017. TREATMENT AND DISEASE COURSE: 1. R-CHOP x 1, 08/25/2017. 2. Dose adjusted EPOCH-R x 5, 09/15/2017 - 12/2017. Post-C2 PET: KS (5PS = 4), CR post C5 3. IT chemotherapy (MTX), only with cycle 3 on 10/06/2017, complicated by intracranial hypotension. 4. R cervical LNBx, 01/06/19, EBV+ florid follicular hyperplasia, c/w possible early PTLD. INTERVAL HISTORY: Mr. Nichols returns to the [facility] for continued follow-up of his c- Myc positive, EBV-positive PTLD. He comes to clinic today accompanied by his mom. He was last seen in clinic on October 04, at which time, he had experienced a significant increase in adenopathy as well as new night sweats. [facility] (Tmax 102) and productive cough. Evaluation was notable for respiratory viral panel positive for adenovirus and parainfluenza and chest x-ray with a possible right middle lobe pneumonia. He was admitted to Oncology for further care. Inpatient PET showed increase in size and avidity of diffuse adenopathy relative to 01/03/2019, aswell as bilateral hypermetabolic pulmonary opacities. The most FDG-avid lesion was a left cervical lymph node with max SUV 14.2. The right upper lobe opacity had a max SUV of 14.4. He underwent core biopsy of a left axillary lymph node on October 13. The pathology showed organized lymphoid tissue with reactive features. No clonal B-cell or immunophenotypically abnormal T-cell population was identified on flow. JAKOB was also negative. For pneumonia, he was treated with azithromycin, cefepime, and vancomycin x2 days and then completed a course of levofloxacin. Since discharge, Mr. Nichols has overall been doing well. His respiratory symptoms are significantly improved, and he now has only a nonproductive cough in the mornings. He denies fevers since discharge. He reports that though some lymph nodes have decreased in size, he and his mother have noticed a new node under his right jaw. He continues on tacrolimus 0.5 b.i.d. He was recently noted to have anelevated quantitative CMV PCR with titer 508 relative to undetectable on 07/22/2019. His transplantproviders have increased his valacyclovir to 900 b.i.d. and he has been on the increased dose for approximately 1 week. About a week ago, he slipped when stepping out of his truck and has had pain inhis left knee since that time. Pain is worst when he first gets moving and he has been using crutches but has not been completely nonweightbearing. He has not sought imaging or medical evaluation forhis knee so far. He also reports stiffness in his right wrist since discharge in October that he thinks may have started with placement of a large bore IV in the right hand. The stiffness is gradually improving and he denies any sensory deficits. PHYSICAL EXAMINATION: Vital Signs: Temperature 98, blood pressure 111/70, heart rate 64, respiratory rate 18, saturation 98% on room air, weight 57.2 kg, up from 54.4 kg in October. Performance Status: ECOG PS 0. HEENT: Moist mucous membranes. No oral ulcers or candidiasis. Respiratory: Lungs clear to auscultation bilaterally. No wheezing or crackles. Cardiovascular: Regular rate and rhythm without murmurs, rubs, or gallops. Abdomen: Soft, nontender, nondistended. No palpable organomegaly. Skin: No rashes. Extremities: No lower extremity edema. The patient's left knee is immobilized in a brace. He has a splint on his right wrist. Neurologic: The patient moves all extremities without focal deficits, with the exception of the left knee (not tested). With regard to his right hand, strength is intact in the wrist, but range of motion in the ux developer designer is limited. Lymphatics: The patient has a subcentimeter right posterior auricular node, as well as a 1 cm rightsubmandibular node. A left posterior auricular node measures approximately 1.2 x 1.2 cm. He has 2 left jugulodigastric nodes, each measuring approximately 1 cm, as well as a left posterior cervical node, measuring 1 cm, and a left submandibular node, measuring 1 cm. The left axillary node is the lar gest present, measuring approximately 2 x 2.5 cm. Subcentimeter left axillary nodes are also palpable adjacent to this. The right axillary node measures approximately 1 cm. He has bilateral mildly enlarged left and right inguinal nodes, each measuring approximately 1.5 x 1 cm. LABORATORY DATA: CBC shows hemoglobin 14.9, white cell count 6.9, ANC 3.5, ALC 2.3, and platelets 292. LDH is mildlyelevated at 256 but in line with prior values. CMP is notable for alkaline phosphatase up-trending to 457. AST and ALT are also mildly elevated at 54 and 64, respectively. Creatinine is at baseline. The patient's CMV titer is pending. PATHOLOGY: Left axillary lymph node core biopsy 10/13/2019 showed organized lymphoid tissue with reactive features. There was no clonal B-cell or immunophenotypically abnormal T-cell population identified on flow cytometry. There was no EBV RNA detected by in situ hybridization. IMAGING: Plain films of the left knee (3 views) show no acute fracture. A small left knee effusion is present. IMPRESSION AND PLAN: 1. History of [id number] PTLD, Nadine-De La Cruz virus positive, stage EMY, IPI 3 (stage, LDH, extranodal site). This 24-year-old man is now roughly 22 months status post 5 cycles of dose-adjusted EPOCH-R, completed December 2017, with CR on [id number] PET-CT. In October, he was suffering increasing adenopathy and fevers. In retrospect, we now see that the fevers were secondary to pneumoniaand have resolved with treatment of the above. PET scan at that time showed interval increase in size in numerous lizzie regions and a core biopsy of a left axillary node was definitively negative forlymphoma. At this point we favor close observation, as Mr. Nichols remains at risk of progression and/or evolution to aggressive lymphoma. However, we see no evidence of lymphoma on imaging, exam, laboratory data, or biopsy at this time. We will see him back in 2 months for close follow-up. 2. History of liver transplant. Mr. Nichols remains on tacrolimus 0.5 mg b.i.d. We note that his alkaline phosphatase, AST, and ALT are up trending from prior. We will be sure that Dr. Gresham's office is aware of these results. 3. Distant history of pulmonary embolus. This was an incidental finding in October 2017 in a patient that had been off anticoagulation for over a year. 4. Positive CMV PCR. The patient's peripheral blood CMV PCR was detectable at 508 on 11/08/2019. The most recent titer prior to this point, in July 2019, was negative. Dr. Gresham instructed Mr. Nichols to increase his valacyclovir to 900 b.i.d., and he has been on the increased dose for approximately 1 week. A repeat CMV titer is pending from today per Dr. Gresham's office. 5. Recent trauma to left knee. Mr. Nichols reports pain in his left knee after a fall from his truck approximately a week ago. Plain films today are negative for a fracture but shows a small left knee effusion. Mr. Nichols has been contacted with these results. We recommended rest, elevation, ice, and a nti-inflammatories. 6. Follow-up. We will see Mr. Nichols back in 2 months for close follow up. He knows to contact us inthe interim with any questions or concerns. ELECTRONICALLY SIGNED - 11/23/2019 09:23 PM Yulisa Harris M.D. Fellow I have seen and examined the patient and agree with the findings and plan of care as documented by and/or discussed with Yulisa Harris M.D.. ELECTRONICALLY SIGNED - 11/25/2019 03:58 PM Anita Gillespie M.D. information services manager [facility] in Medical Oncology LS/NB/sll cc: LENO GRESHAM MD [address] [facility] [address], [place] [address] LINDA CHAPA MD [address] [place] [address] / SINGER documented in this encounter Plan of Treatment Scheduled Procedures Name Priority Associated Diagnoses Date/Ti me COLONOSCOPY Encounter for screening for colorectal cancer in high risk patient Family history of rectal cancer documented as of this encounter Results * Lactate dehydrogenase (LD) (01/17/2020 7:10 AM CDT) Lactate dehydrogenase (LDH) 231 100 - 250 Units/L [facility] Comment:Testing performed by : [facility], [address] [place] [phone] Blood specimen (specimen) 01/17/2020 7:10 AM CDT 01/17/2020 7:11 AM CDT us Anita Gillespie MD LAB BLOOD ORDERABLES Final Result [facility] Department of Laboratories [place], [place] [id number] * (ABNORMAL) Comprehensive metabolic panel (01/17/2020 7:10 AM CDT) Pathologist [facility] Sodium 141 135 - 145 mmol/L [facility] Comment:Testing performed by : [facility], [address] [place] [phone] Potassium, pl 4.6 3.3 - 4.9 mmol/L [facility] Comment:Testing performed by : [facility], [address] [place] [phone] Chloride 103 97 - 110 mmol/L [facility] Comment:Testing performed by : [facility], [address] [place] [phone] CO2 30 22 - 32 mmol/L [facility] Comment:Testing performed by : [facility], [address] [place] [phone] Anion gap 8 2 - 15 mmol/L [facility] Comment:Testing performed by : [facility], [address] [place] [phone] BUN 8 8 - 25 mg/dL [facility] Comment:Testing performed by : [facility], [address] [place] [phone] Creatinine 0.77(L) 0.80 - 1.30 mg/dL [facility] Comment:Testing performed by : [address] [address] Glucose 104 70 - 199 mg/dL [facility] [...] last revised 2017. Testing performed by: [facility], [address] [place] [phone] Calcium 8.8 8.5 - 10.3 mg/dL [facility] Comment:Testing performed by : [facility], [address] [place] [phone] Bilirubin, total 0.5 0.1 - 1.2 mg/dL [facility] Comment:Testing performed by : [address] [phone] Protein, pl 5.8(L) 6.5 - 8.5 g/dL [facility] Comment:Testing performed by : [facility], [address] [place] [phone] Albumin 3.9 3.5 - 5.0 g/dL [facility] Comment:Testing performed by : [facility], [address] [place] [phone] Alk phos 357(H) 40 - 130 Units/L [facility] Comment:Testing performed by : [facility], [address] [place] [phone] ALT 56(H) 7 - 55 Units/L [facility] Comment:Testing performed by : [facility], [address] [place] [phone] AST 49 10 - 50 Units/L [facility] Comment:Testing performed by : [facility], [address] [place] [phone] Blood specimen (specimen) 01/17/2020 7:10 AM CDT 01/17/2020 7:11 AM CDT us Anita Gillespie MD LAB BLOOD ORDERABLES Final Result [facility] Department of Laboratories [place], [place] [id number] * (ABNORMAL) CBC with auto differential (01/17/2020 7:10 AM CDT) WBC 6.1 3.8 - 9.8 K/cumm [facility] Comment:Testing performed by : [facility], [address] [place] [phone] Hgb 15.5 13.8 - 17.2 g/dL [facility] Comment:Testing performed by : [address] [address] Hct 45.7 40.7 - 50.3 % [facility] Comment:Testing performed by : [address] [address] Plt 246 140 - 440 K/cumm [facility] Comment:Testing performed by : [facility], [address] [place] [address] MPV 7.3 6.8 - 10.4 fL [facility] Comment:Testing performed by : [facility], [address] [place], [place] [phone] RBC 4.67 4.50 - 5.70 M/cumm [facility] Comment:Testing performed by : [facility], [address] [place], [place] [phone] MCV 97.9(H) 80.0 - 97.6 fL [facility] Comment:Testing performed by : [facility], [address] [place] [phone] MCH 33.3 26.7 - 33.7 pg [facility] Comment:Testing performed by : [facility], [address] [place], [place] [phone] MCHC 34.0 32.7 - 35.5 g/dL [facility] Comment:Testing performed by : [facility], [address] [place] [phone] RDW CV 15.7(H) 11.8 - 14.6 % [facility] Comment:Testing performed by : [facility], [address] [place] [phone] NRBC abs 0.00 0.00 - 0.01 K/cumm [facility] Comment:Testing performed by : [facility], [address] [place] [phone] Blood specimen (specimen) 01/17/2020 7:10 AM CDT 01/17/2020 7:11 AM CDT us Anita Gillespie MD LAB BLOOD ORDERABLES Final Result [facility] [place] [address] * XR Knee Left 3 Views (11/22/2019 9:39 AM POP SINGER) Anatomical Region Laterality Modality Lower Extremities, Knee Left Computed Radiography 11/22/2019 9:44 AM POP SINGER Impressions 11/22/2019 9:59 AM POP SINGER Small left knee effusion. Dictated by: Александр Lewis M.D. The radiology attending physician has personally reviewed this study, and had reviewed and/or edited this written report and agrees with it. Electronically signed by: Rashid Galindo M.D. Narrative 11/22/2019 9:59 AM POP SINGER EXAMINATION: XR KNEE LEFT 3 VIEWS HISTORY: Status post fall with knee pain FINDINGS: 3 views of the left knee are submitted for interpretation with no comparison. There is no acute fracture. ??Alignment is normal. ??The joint spaces are normal. ??There is a small left knee effusion. Procedure Note Rashid Galindo MD - 11/22/2019 EXAMINATION: XR KNEE LEFT 3 VIEWS HISTORY: Status post fall with knee pain FINDINGS: 3 views of the left knee are submitted for interpretation with no comparison. There is no acute fracture. Alignment is normal. The joint spaces are normal. There is a small left knee effusion. IMPRESSION: Small left knee effusion. Dictated by: Александр Lewis M.D. The radiology attending physician has personally reviewed this study, and had reviewed and/or edited this written report and agrees with it. Electronically signed by: Rashid Galindo M.D. 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 acyclovir (ZOVIRAX) 400 mg tablet Take 450 mg by mouth every 4 (four) hours while awake 01/17/2020 tacrolimus (PROGRAF) 0.5 mg capsule 10/13/2019 03/20/2020 added in this encounter Orders Appointment Requests Count Last Ordered Date Fi rst Ordered Date ONCBCN CLINIC APPOINTMENT REQUEST 2 020 11/22/2019 ON[facility]N LAB APPOINTMENT 1 01/17/2020 documented in this encounter Care Teams Car Rental Agency Manager Relationship Specialty Start Date End Date Guero Colunga DO PCP - General Internal Medicine 03/22/19 04/18/23 Amber Montesinos, RN Fuel Cell Test Engineer Transplant 11/17/19 documented as of this encounter
--- OUTSIDE RECORDS SUMMARY | 2024-10-28 06:24 | XMS_ITS | Encounter Summary ---
Author Organization [facility] Healthcare Address [address] [place] [address] Care Team Providers Care Spoke Maker Name Role Phone Munira Rick RN Unavailable [phone] Guero Colunga DO Primary Care Provider [phone] Encounter Details Date Type Department Care Team (Late st Contact Info) Description 11/07/2019 Telephone [facility] Transplant Liver [address] [facility] [phone] [place] [address] Munira Rick, RN [address] [facility] [address] [place] [address] Social History Tobacco Use Types Packs/Day Years Used Date Smoking Tobacco: Never Smokeless Tobacco: Never Sex and Gender Information Value Date Recorded Sex Assigned at Not on file Legal Sex 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 Gender Identity Not on file Sexual Orientation Straight 08/22/2021 9: 23 AM CDT documented as of this encounter Ordered Prescriptions Prescription Sig Dispense Quantity Refills Last Filled Start Date End Date valGANciclovir (VALCYTE) 450 mg tabletIndications: Other (complete free text reason below),CMV Viremia Take 1 tablet (450 mg total) by mouth daily 30 tablet 2 11/07/2019 11/13/2019 documented in this encounter Miscellaneous Notes * Telephone Encounter - Munira Rick - 11/07/2019 9:44 AM CST Pt's mom calling to report that pt will go in am to have CMV PCR Quant done at [facility] and she wantedto ensure lab order was sent. She left a VM at [facility] to confirm but has not heard back yet. Will ask Victorina to please fax order to [facility] with lab entered into [facility]. Mom is also requesting refill on the valcyte. Sent via [facility] to [facility] in [place], [place] off of [address] BING 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 documented in this encounter Plan of Treatment Scheduled Orders Name Type Priority Associated Diagnoses Orde r Schedule Cytomegalovirus (CMV) DNA PCR, Qauntitative - Miscellaneous Test Lab Routine Cytomegalovirus infection, unspecified cytomegaloviral infection type (CMS/HCC) History of liver transplant (CMS/HCC) Expected: 11/08/2019 (Approximate), Expires: 11/07/2020 Scheduled Procedures Name Priority Associated Diagnoses Date/Ti [...] (complete free text reason below),CMV Viremia Take 1 tablet (450 mg total) by mouth daily Reorder 09/12/2019 11/07/2019 documented as of this encounter Care Teams Spoke Maker Relationship Specialty Start Date End Date Guero Colunga DO [address] [address] PCP - General Internal Medicine 03/22/19 04/18/23 Munira Rick, RN [address] [address] Tour Counselor 04/01/18 documented as of this encounter
--- OUTSIDE RECORDS SUMMARY | 2024-10-28 06:24 | XMS_ITS | Encounter Summary ---
Author Organization [facility] Facility Care Team Providers Care Karate Instructor Name Role Phone Guero Colunag DO Primary Care Provider [phone] Amber Montesinos RN Unavailable Encounter Details Date Type Department Care Team (Latest Contact Info) Description 12/25/2019 Travel Social History Tobacco Use Types Packs/Day Years Used Date Smoking Tobacco: Never Smokeless Tobacco: Never Alcohol Use Standard Drinks/Week Comments Yes 0 (1 standard drink = 0.6 oz pur e alcohol) occassional Sex and Gender Information Value Date Recorded Sex Assigned at Not on file Legal Sex Male 6:28 AM THREAD REELER Gender Identity Not on file Sexual Orientation [...] Time Rhino/Enterovirus 12/21/2019 12/21/2019 12/28/2019 3:05 AM THREAD REELER documented as of this encounter Care Teams Karate Instructor Relationship Specialty Start Date End Date Guero Colunga DO PCP - General Internal Medicine 03/22/19 04/18/23 Amber Montesinos, SHAILESH Admitting Supervisor Transplant 1/17/20 documented as of this encounter
--- OUTSIDE RECORDS SUMMARY | 2024-10-28 06:24 | XMS_ITS | Encounter Summary ---
Author Organization [facility] Healthcare Address [address] [place] [address] Care Team Providers Care Internal Communications Manager Name Role Phone Munira Rick RN Unavailable [phone] Guero Colunga DO Primary Care Provider [phone] Encounter Details Date Type Department Care Team (Late st Contact Info) Description 11/14/2019 Telephone 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 ADI NICHOLS (Shah: [id number]) Your information has been sent to [facility] E HEALTHCARE MANAGER documented in this encounter Plan of Treatment Scheduled Procedures Name Priority Associated Diagnoses Date/Ti me COLONOSCOPY Encounter for screening for colorectal cancer in high risk patient Family history of rectal cancer documented as of this encounter Visit Diagnoses Not on filedocumented in this encounter Care Teams Internal Communications Manager Relationship Specialty Start Date End Date Guero Colunga DO [address] [facility] [address] [place] [address] PCP - General Internal Medicine 03/22/19 04/18/23 Munira Rick, RN [address] [facility] [address] [place] [address] Plastics And Composites Inspector 04/01/18 documented as of this encounter
--- OUTSIDE RECORDS SUMMARY | 2024-10-28 06:24 | XMS_ITS | Encounter Summary ---
Author Organization [facility] Address [address] [place] [address] Phone Care Team Providers Care Clinic Office Assistant Name Role Phone Guero Colunga DO Primary Care Provider [phone] Amber Montesinos RN Unavailable [phone] Reason for Visit * Reason Onset Date Comments Fever 12/21/2019 Encounter Details Date Type Department Care Team (Late st Contact Info) Description 12/21/2019 Telephone [facility] 7th [place] [address] [place] [address] David Shirley, RN Fever Social History Tobacco Use Types Packs/Day Years Used Date Smoking Tobacco: Never Smokeless Tobacco: Never Alcohol Use Standard Drinks/Week Comments Yes 0 (1 standard drink = 0.6 oz pur e alcohol) occassional Sex and Gender Information Value Date Recorded Sex Assigned at Not on file Legal 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 Earlier in the morning it was 100.2 typanic and now it is 102 axillary. They had already discuss with liver transplant and are on their way to the ED for evaluation. S 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 [employer] documented in this encounter Plan of Treatment Scheduled Procedures Name Priority Associated Diagnoses Date/Ti me COLONOSCOPY Encounter for screening for colorectal cancer in high risk patient Family history of rectal cancer documented as of this encounter Visit Diagnoses Not on filedocumented in this encounter Care Teams Clinic Office Assistant Relationship Specialty Start Date End Date Guero Colunga DO PCP - General Internal Medicine 03/22/19 04/18/23 Amber Montesinos, SHAILESH Senior Account Executive Transplant 11/17/19 documented as of this encounter
--- OUTSIDE RECORDS SUMMARY | 2024-10-28 06:24 | XMS_ITS | Encounter Summary ---
Author Organization [facility] Address [address] [place] [address] Phone Care Team Providers Care Skin Grader Name Role Phone Munira Rick RN Unavailable [phone] Guero Colunga DO Primary Care Provider [phone] Encounter Details Date Type Department Care Team (Late st Contact Info) Description 11/08/2019 Orders Only [facility] Gastroenterology [address] [facility] Advanced Medicine 8th [place] [address] [place] [address] Theodore Gresham MD [address] [facility] [address] [place] [address] Social History Tobacco Use Types Packs/Day Years Used Date Smoking Tobacco: Never Smokeless Tobacco: Never Sex and Gender Information Value Date Recorded Sex Assigned at Not on file Legal Sex Male 6:28 AM DOUBLE CUTTER Gender Identity Not on file Sexual Orientation Straight 08/22/2021 9: 23 AM CDT documented as of this encounter Plan of Treatment Scheduled Procedures Name Priority Associated Diagnoses Date/Ti me COLONOSCOPY Encounter for screening for colorectal cancer in high risk patient Family history of rectal cancer documented as of this encounter Procedures Procedure Name Priority Date/Time Associated Diagnosis Comments COPY(IES) SENT TO: Routine 11/08/2019 1: 49 PM DOUBLE CUTTER CMV DNA QN, PCR Routine 11/08/2019 1:49 PM DOUBLE CUTTER documented in this encounter Results * (ABNORMAL) CMV DNA QN, PCR (11/08/2019 1:49 PM DOUBLE CUTTER) SOURCE SERUM [facility] [place] CMV DNA qn 508(H) IU/mL [facility] [place] CMV DNA log IU/mL 2.71(H) Log IU/mL [facility] - [place] Comment: REFERENCE RANGE: CMV DNA, QN PCR: <200 IU/mL CMV DNA, QN PCR: <2.30 Log IU/mL This test was developed and its analytical performance characteristics have been determined by [facility]. It has not been cleared or approved by the U.S. Food and Drug Administration. This assay has been validated pursuant to the CLIA regulations and is used for clinical purposes. 11/08/2019 1:49 PM DOUBLE CUTTER 11/08/2019 1:50 PM DOUBLE CUTTER Narrative [facility] - 11/11/2019 11:52 PM DOUBLE CUTTER TO BE DRAWN 11/07/2019 FASTING:NO FASTING: NO Resulting Agency Comment Performing Organization Information: ?Site ID: [id number] ?Name: [facility] ?Address: [address] [place] [id number] ?Director: Richie Rodriguez MD Theodore Gresham MD LAB MICROBIOLOGY - GENERAL ORDERABLES Final Result [facility] - [place], [place] * COPY(IES) SENT TO: (11/08/2019 1:49 PM DOUBLE CUTTER) COPY(IES) SENT TO: [facility] Comment: ?[facility] - COPY TO ACCT ?[address] [facility] [address] 11/08/2019 1:49 PM DOUBLE CUTTER 11/08/2019 1:50 PM DOUBLE CUTTER Narrative [facility] - 11/11/2019 11:52 PM DOUBLE CUTTER TO BE DRAWN 11/07/2019 FASTING:NO FASTING: NO Theodore Gresham MD LAB BLOOD ORDERABLES Final Result [facility] documented in this encounter Visit Diagnoses Not on filedocumented in this encounter Care Teams Skin Grader Relationship Specialty Start Date End Date Guero Colunga DO [address] [place] [address] PCP - General Internal Medicine 03/22/19 04/18/23 Munira Rick, RN [address] [place] [address] Glassware Maker 04/01/18 documented as of this encounter
--- OUTSIDE RECORDS SUMMARY | 2024-10-28 06:24 | XMS_ITS | Encounter Summary ---
Author Organization [facility] Facility Care Team Providers Care Industrial Technology Teacher Name Role Phone Guero Colunga DO Primary Care Provider Amber Montesinos RN Unavailable [phone] Encounter Details Date Type Department Care Team (Latest Contact Info) Description 12/22/2019 Travel Social History Tobacco Use Types Packs/Day Years Used Date Smoking Tobacco: Never Smokeless Tobacco: Never Alcohol Use Standard Drinks/Week Comments Yes 0 (1 standard drink = 0.6 oz pur e alcohol) occassional Sex and Gender Information Value Date Recorded Sex Assigned at Not on file Legal Sex Male 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
--- OUTSIDE RECORDS SUMMARY | 2024-10-28 06:24 | XMS_ITS | Encounter Summary ---
Author Organization [facility] Healthcare Address [address] [place] [address] Care Team Providers Care Human Intelligence Name Role Phone Guero Colunga DO Primary Care Provider [phone] Amber Montesinos RN Unavailable [phone] Encounter Details Date Type Department Care Team (Late st Contact Info) Description 12/12/2019 Telephone [facility] Transplant Liver [address] [facility] [phone] [place] [address] Amber Montesinos, SHAILESH Social History Tobacco Use Types Packs/Day Years Used Date Smoking Tobacco: Never Smokeless Tobacco: Never Sex and Gender Information Value Date Recorded Sex Assigned at Not on file Legal Sex Male 6:28 AM SHEAR HELPER Gender Identity Not on file Sexual Orientation Straight 08/22/2021 9: 23 AM CDT documented as of this encounter Miscellaneous Notes * Telephone Encounter - Amber Vargas RN - 12/12/2019 1:18 PM CST Pt noted to have increase in CMV PCR level again. Reviewed results with Dr. Lemus in office today. Patient has been on 900mg BID of valcyte since 11/13/2019. Reviewed with pharm d about which test to order. Our test here is ordered as a [facility] test and add in the comments CMV Resistance Testing - UL54 and UL97. ??Called [facility] and they are able to perform test, it is test number: [id number]. Printed blank order for resistance test and admin will fax to [facility]. Called patient to update him on lab results and new specimen at [facility]. Patient reporting he is still feeling better. Hewill try to go to [facility] before next blood draw to get done- if not will get labs done again this weekend. R HELPER documented in this encounter Plan of Treatment Scheduled Procedures Name Priority Associated Diagnoses Date/Ti me COLONOSCOPY Encounter for screening for colorectal cancer in high risk patient Family history of rectal cancer documented as of this encounter Visit Diagnoses Not on filedocumented in this encounter Care Teams Human Intelligence Relationship Specialty Start Date End Date Guero Colunga DO PCP - General Internal Medicine 03/22/19 04/18/23 Amber Montesinos, SHAILESH Molding Plasterer Transplant 11/17/19 documented as of this encounter
--- OUTSIDE RECORDS SUMMARY | 2024-10-28 06:24 | XMS_ITS | Encounter Summary ---
Author Organization [facility] Healthcare Address [address] [place] [address] Care Team Providers Care Speech Pathology Teacher Name Role Phone Munira Rick RN Unavailable [phone] Guero Colunga DO Primary Care Provider [phone] Encounter Details Date Type Department Care Team (Late st Contact Info) Description 11/07/2019 Telephone [facility] Transplant Liver [address] [facility] [phone] [place] [address] Jacquelyn Welsh Social History Tobacco Use Types Packs/Day Years Used Date Smoking Tobacco: Never Smokeless Tobacco: Never Sex and Gender Information Value Date Recorded Sex Assigned at Not on file Legal Sex Male 6:28 AM PNEUMATIC TOOL OPERATOR Gender Identity Not on file Sexual Orientation Straight 08/22/2021 9: 23 AM CDT documented as of this encounter Miscellaneous Notes * Telephone Encounter - Munira Rick - 11/07/2019 11:59 AM CST Returned call to [facility] and verified that pt should be taking Valcyte 450 mg daily. Pharmacy willensure pt is aware that dosing is once daily. When dose reduced in July, left VM with pt detailing changes to medication. MATIC TOOL OPERATOR * Telephone Encounter - Jacquelyn Welsh - 11/07/2019 11:33 AM CST Call Landon at [facility] in [place] [phone] re: questions on dosage and instructions on Valganciclovir refill he just rec'd MATIC TOOL OPERATOR documented in this encounter Plan of Treatment Scheduled Procedures Name Priority Associated Diagnoses Date/Ti me COLONOSCOPY Encounter for screening for colorectal cancer in high risk patient Family history of rectal cancer documented as of this encounter Visit Diagnoses Not on filedocumented in this encounter Care Teams Speech Pathology Teacher Relationship Specialty Start Date End Date Guero Colunga DO [address] [place] [address] PCP - General Internal Medicine 03/22/19 04/18/23 Munira Rick, RN [address] [place] [address] Manager Ecommerce 04/01/18 documented as of this encounter
--- OUTSIDE RECORDS SUMMARY | 2024-10-28 06:24 | XMS_ITS | Encounter Summary ---
Author Organization [facility] Healthcare Address [address] [place] [address] Care Team Providers Care Refinery Process Engineer Name Role Phone Munira Rick RN Unavailable [phone] Guero Colunga DO Primary Care Provider [phone] Encounter Details Date Type Department Care Team (Late st Contact Info) Description 11/13/2019 Telephone [facility] Transplant Liver [address] [facility] [phone] [place] [address] Munira Rick, RN [address] [facility] [address] [place] [address] Social History Tobacco Use Types Packs/Day Years Used Date Smoking Tobacco: Never Smokeless Tobacco: Never Sex and Gender Information Value Date Recorded Sex Assigned at Not on file 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 CASE Gender Identity Not on file Sexual Orientation Straight 08/22/2021 9: 23 AM CDT documented as of this encounter Ordered Prescriptions Prescription Sig Dispense Quantity Refills Last Filled Start Date End Date valGANciclovir (VALCYTE) 450 mg tabletIndications: Other (complete free text reason below),CMV Viremia Take 1 tablet (450 mg total) by mouth 2 (two) times a day 60 tablet 2 11/13/2019 11/13/2019 documented in this encounter Miscellaneous Notes * Telephone Encounter - Munira Rick - 11/13/2019 1:24 PM CST Reviewed CMV PCR Quant results with Dr. 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 Called pt, spoke with mom. Juana, pt has been taking 450 mg twice daily. Reviewed with mom that pt was supposed to be on 450 mg daily- mom found note that pt was supposed to decrease dosing but she has been giving him 450 mg BID. Will review with hepatology to see if pt can increase further. GER CASE documented in this encounter Plan of Treatment [...] tablet (450 mg total) by mouth daily 11/07/2019 11/13/2019 documented as of this encounter Care Teams Refinery Process Engineer Relationship Specialty Start Date End Date Guero Colunga DO [address] [place] [address] PCP - General Internal Medicine 03/22/19 04/18/23 Munira Rick, RN [address] [place] [address] Dough Mixing Machine Operator 04/01/18 documented as of this encounter
--- OUTSIDE RECORDS SUMMARY | 2024-10-28 06:24 | XMS_ITS | Encounter Summary ---
Author Organization [facility] Healthcare Address [address] [place] [address] Care Team Providers Care Electric Motor Assembler And Tester Name Role Phone Guero Colunga Primary Care Provider [phone] Amber Montesinos RN Unavailable [phone] Encounter Details Date Type Department Care Team (Late st Contact Info) Description 12/21/2019 Telephone [facility] Transplant Liver [address] [facility] [address] [phone] [place] [address] Amber Montesinos, RN Social History Tobacco Use Types Packs/Day Years Used Date Smoking Tobacco: Never Smokeless Tobacco: Never Alcohol Use Standard Drinks/Week Comments Yes 0 (1 standard drink = 0.6 oz pur e alcohol) occassional Sex and Gender Information Value Date Recorded Sex Assigned at Not on file Legal Sex Male 6: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 Patient's mother concerned because patient woke up this morning with a 100 fever and a cough with yellow mucous. Patient tried to go to work this morning but then returned home- mom rechecked temperature and it was 102. [address] Lemus, recommended patient be seen in the ED for evaluation d/t high fever and immunocompromised status. Called ED triage at [facility] and informed them that patient was on his way. Let Dr. Duncan know so that the inpatient ID doctor can consult on the patient. Cover my meds prior auth complete today for valcyte script of 7 days KING MACHINE SET UP OPERATOR documented in this encounter Plan of [...] mouth 2 (two) times a day Reorder 11/13/2019 12/21/2019 documented as of this encounter Care Teams Electric Motor Assembler And Tester Relationship Specialty Start Date End Date Guero Colunga DO PCP - General Internal Medicine 03/22/19 04/18/23 Amber Montesinos, SHAILESH Tow Motor Driver Transplant 11/17/19 documented as of this encounter
--- OUTSIDE RECORDS SUMMARY | 2024-10-28 06:24 | XMS_ITS | Encounter Summary ---
Author Organization [facility] Address [address] [place] [address] Phone Care Team Providers Care Water Pump Servicer Name Role Phone Guero Colunga DO Primary Care Provider [phone] Amber Montesinos RN Unavailable [phone] Encounter Details Date Type Department Care Team (Late st Contact Info) Description 12/16/[address] [facility] Gastroenterology [address] [facility] Advanced Medicine 8th [place] [address] [place] [address] Theodore Gresham MD [address] [facility] [address] [place] [address] Social History Tobacco Use Types Packs/Day Years Used Date Smoking Tobacco: Never Smokeless Tobacco: Never Sex and Gender Information Value Date Recorded Sex Assigned at Not on file Legal Sex Male 6:28 AM CHIEF OF INTERNAL MEDICINE Gender Identity Not on file Sexual Orientation Straight 08/22/2021 9: 23 AM CDT documented as of this encounter Plan of Treatment Scheduled Procedures Name Priority Associated Diagnoses Date/Ti me COLONOSCOPY Encounter for screening for colorectal cancer in high risk patient Family history of rectal cancer documented as of this encounter Procedures Procedure Name Priority Date/Time Associated Diagnosis Comments CYTOMEGALOVIRUS (CMV) GENOTYPE Routine 12/16/2019 10:30 AM CHIEF OF INTERNAL MEDICINE COPY(IES) SENT TO: Routine 12/16/2019 10 :30 AM CHIEF OF INTERNAL MEDICINE documented in this encounter Results * Cytomegalovirus(CMV)Genotype (12/16/2019 10:30 AM CHIEF OF INTERNAL MEDICINE) UL97 Mutation TNP [facility] Comment: TEST NOT PERFORMED ?? We were unable to obtain a genotype from this sample. Reasons for failure to genotype commonly include: insufficient viral load, mutations in the genome at the priming sites, or presence of PCR inhibitors. Please correlate this result with a recent viral load for this patient, and resubmit a new sample if warranted. 12/16/2019 10:3 0 AM CHIEF OF INTERNAL MEDICINE 12/16/2019 10:31 AM CHIEF OF INTERNAL MEDICINE Narrative [facility] - 12/25/2019 4:05 PM CHIEF OF INTERNAL MEDICINE IN ADDITION TO STANDING ORDER X1 DRAW Resulting Agency Comment Performing Organization Information: ?Site ID: [place] ?Name: [facility] ?Address: [address] [place] [id number] ?Director: Richie Rodriguez MD Theodore Gresham MD LAB BLOOD ORDERABLES Final Result Performing Organization Address City/State/[facility] Co de Phone Number [facility] - [place], [place] * COPY(IES) SENT TO: (12/16/2019 10:30 AM CHIEF OF INTERNAL MEDICINE) COPY(IES) SENT TO: [facility] Comment: ?[facility] - COPY TO ACCT ?[address] [facility] [address] 12/16/2019 10:3 0 AM CHIEF OF INTERNAL MEDICINE 12/16/2019 10:31 AM CHIEF OF INTERNAL MEDICINE Narrative [facility] - 12/25/2019 4:05 PM CHIEF OF INTERNAL MEDICINE IN ADDITION TO STANDING ORDER X1 DRAW Theodore Gresham MD LAB BLOOD ORDERABLES Final Result [facility] documented in this encounter Visit Diagnoses Not on filedocumented in this encounter Additional Health Concerns Infection Onset Date Last Indicated Resolved Time Rhino/Enterovirus 12/21/2019 12/21/2019 12/28/2019 3:05 AM CHIEF OF INTERNAL MEDICINE documented as of this encounter Care Teams Water Pump Servicer Relationship Specialty Start Date End Date Guero Colunga DO PCP - General Internal Medicine 03/22/19 04/18/23 Amber Montesinos, RN Bsw Transplant 11/17/19 documented as of this encounter
--- OUTSIDE RECORDS SUMMARY | 2024-10-28 06:24 | XMS_ITS | Encounter Summary ---
Author Organization [facility] Facility Care Team Providers Care Feather Maker Name Role Phone Guero Colunga DO Primary Care Provider [phone] Amber Montesinos RN Unavailable [phone] Encounter Details Date Type Department Care Team (Latest Contact Info) Description 12/21/2019 Travel Social History Tobacco Use Types Packs/Day Years Used Date Smoking Tobacco: Never Smokeless Tobacco: Never Alcohol Use Standard Drinks/Week Comments Yes 0 (1 standard drink = 0.6 oz pur e alcohol) occassional Sex and Gender Information Value Date Recorded Sex Assigned at Not on file Legal Sex Male 6:28 AM IRONWORKER FOREMAN Gender Identity Not on file Sexual [...] Time Rhino/Enterovirus 12/21/2019 12/21/2019 12/28/2019 3:05 AM IRONWORKER FOREMAN documented as of this encounter Care Teams Feather Maker Relationship Specialty Start Date End Date Guero Colunga DO PCP - General Internal Medicine 03/22/19 04/18/23 Amber Montesinos, SHAILESH Certified Neurodiagnostic Technologist Transplant 1/17/20 documented as of this encounter
--- OUTSIDE RECORDS SUMMARY | 2024-10-28 06:24 | XMS_ITS | Encounter Summary ---
Author Organization [facility] Address [address] [place] [address] Phone Care Team Providers Care Road Cleaner Name Role Phone Guero Colunga DO Primary Care Provider [phone] Amber Montesinos RN Unavailable [phone] Reason for Referral * Diagnostic Imaging (Routine) - Closed Specialty Diagnoses / Procedures Referred By Contac t Referred To Contact Diagnoses Fever, unspecified fever cause Procedures X-ray chest 2 views Jil Duncan MD [address] [place] [address] Phone: tel: fax: [address] [address] Referral ID Status Reason Start Date Expiration Date Visits Re quested Visits Authorized [id number] Closed 12/25/2019 07/05/2021 1 1 ITAL CNA Encounter Details Date Type Department Care Team (Late st Contact Info) Description 12/25/2019 Orders Only [facility] Infectious Diseases [address] [place] [id number] Jil Duncan MD [address] [place] [address] Fever, unspecified fever cause (Primary Dx) Social History Tobacco Use Types Packs/Day Years Used Date Smoking Tobacco: Never Smokeless Tobacco: Never Alcohol Use Standard Drinks/Week Comments Yes 0 (1 standard drink = 0.6 oz pur e alcohol) occassional Sex and Gender Information Value Date Recorded Sex Assigned at Not on file Legal Sex Male 6:28 AM HOSPITAL CNA Gender Identity Not on file Sexual Orientation Straight 08/22/2021 9: 23 AM CDT documented as of this encounter Plan of Treatment Scheduled Procedures Name Priority Associated Diagnoses Date/Ti ny COLONOSCOPY Encounter for screening for colorectal cancer in high risk patient Family history of rectal cancer documented as of this encounter Results * X-ray chest 2 views (12/25/2019 10:29 AM HOSPITAL CNA) Anatomical Region Laterality Modality Body, Chest N/A Computed Radiogr aphy 12/25/2019 11:3 7 AM HOSPITAL CNA Impressions 12/25/2019 11:45 AM HOSPITAL CNA Comparison is made to prior exam(s) on [...] signed by: Robert Gilman M.D., MPH Narrative 12/25/2019 11:45 AM HOSPITAL CNA EXAMINATION: 2 view chest radiograph Procedure Note Robert Gilman MD - 12/25/2019 EXAMINATION: 2 view chest radiograph IMPRESSION: Comparison is made to prior exam(s) on [...] signed by: Robert Gilman M.D., MPH us Ige Sonido Duncan MD IMG XR PROCEDURES Final Re sult documented in this encounter Visit Diagnoses Diagnosis Fever, unspecified fever cause- Primary Fever, unspecified fever cause documented in this encounter Additional Health Concerns Infection Onset Date Last Indicated Resolved Time Rhino/Enterovirus 12/21/2019 12/21/2019 12/28/2019 3:05 AM HOSPITAL CNA documented as of this encounter Care Teams Road Cleaner Relationship Specialty Start Date End Date Guero Colunga DO PCP - General Internal Medicine 03/22/19 04/18/23 Amber Montesinos, SHAILESH Diamond Die Maker Transplant 11/17/19 documented as of this encounter
--- OUTSIDE RECORDS SUMMARY | 2024-10-28 06:24 | XMS_ITS | Encounter Summary ---
Author Organization [facility] Address [address] [place] [address] Care Team Providers Care Real Estate Associate Name Role Phone Guero Colunga DO Primary Care Provider [phone] Amber Montesinos RN Unavailable [phone] Jil Duncan MD Unavailable [phone] Anita Gillespie MD Unavailable [phone] Tabitha Hurley MD Unavailable [phone] Massiel Gastelum MD Unavailable [phone] Beka Nick MD Primary Care Provider + [phone] Beka Nick MD Primary Care Provider [phone] Unknown, Notinfile Primary Care Provider Unavail able Guero Colunga DO Primary Care Provider [phone] Encounter Details Date Type Department Care Team (Latest Contact Info) Description 12/22/2019 Ophth Exam Ophthalmology Ria Gunter MD [address] [place] [address] Social History Tobacco Use Types Packs/Day Years Used Date Smoking Tobacco: Never Smokeless Tobacco: Never Alcohol Use Standard Drinks/Week Comments Yes 0 (1 standard drink = 0.6 oz pur e alcohol) occassional Sex and Gender Information Value Date Recorded Sex Assigned at Not on file Legal Sex Male 6:28 AM [employer] Gender Identity Not on file Sexual [...] Time Rhino/Enterovirus 12/21/2019 12/21/2019 12/28/2019 3:05 AM [employer] COVID: Suspected 07/09/2022 07/09/2022 07/09/2022 2:27 PM [...] COVID: Suspected 10/03/2023 10/03/2023 10/03/2023 9:58 AM [employer] AGENT Rhino/Enterovirus 10/03/2023 10/03/2023 10/17/2023 3:05 AM [employer] COVID: Suspected 02/18/2024 02/18/2024 02/18/2024 7:27 AM CDT Rhino/Enterovirus 02/18/2024 02/19/2024 03/04/2024 3:05 AM CDT documented as of this encounter Eye Exam Visual Acuity (Snellen - Linear) Right eye Left eye Near sc 20/20 20/20 Tonometry (Tonopen, 9:57 AM) Right eye Left eye Pressure 14 15 Pupils Pupils Dark Light Shape React APD Right eye PERRL 4 2 Round Brisk None Left eye PERRL 4 2 Round Brisk None Visual More Right eye Left eye Full Full Extraocular Movement Right eye Left eye Full Full External Exam Right eye Left eye External Normal Normal No preauricular LAD Slit Lamp Exam Right eye Left eye Lids/Lashes Normal, no follicles Normal, no follicles Conjunctiva/Sclera White and quiet White and caryn et Cornea Clear Clear Anterior Chamber Deep and formed Deep and formed Iris Round and reactive Round and jeramy ctive Lens Clear Clear Vitreous Normal Normal Fundus Exam Right eye Left eye Disc Slightly more pallor ous than OS, with area of cupping superotemporally Normal Macula Flat, attached, no lesions Flat, attached, no lesions Vessels Normal course and caliber Normal couse and caliber Periphery Attached 360, no lesions Multi Care Technician d 360, no lesions Care Teams Real Estate Associate Relationship Specialty Start Date End Date Guero Colunga DO PCP - General Internal Medicine 03/22/19 04/18/23 Beka Nick MD [address] [facility] [place] [address] PCP - General Family Practice 04/19/23 04/19/23 Beka Nick MD [address] [place] [address] PCP - General Family Practice 05/31/23 04/25/24 Unknown, Notinfile PCP - General 04/26/24 08/01/24 Guero Colunga DO [address] [address] PCP - General Internal Medicine 08/02/24 Amber Montesinos, SHAILESH Visitor Information Assistant Transplant 11/17/19 Jil Duncan MD Consulting Physician Infectious Diseases 01/10/20 Anita Gillespie MD Medical Oncologist/Archivist Medical Oncology 10/07/20 Tabitha Hurley MD [address] [place] [address] Consulting Physician Rheumatology 10/22/21 Massiel Gastelum MD [address] [place] [address] Consulting Physician Otolaryngology 08/27/22 documented as of this encounter
--- OUTSIDE RECORDS SUMMARY | 2024-10-28 06:24 | XMS_ITS | Encounter Summary ---
Author Organization [facility] Address [address] [place] [address] Phone Care Team Providers Care Power Wheelchair Mechanic Name Role Phone Guero Colunga DO Primary Care Provider [phone] Amber Montesinos RN Unavailable [phone] Reason for Visit * Reason Comments New Patient Encounter Details Date Type Department Care Team (Latest Contact Info) Description 12/25/2019 9:00 AM SCALES INSPECTOR Office Visit [facility] Infectious Diseases [address] [place] [id number] Jil Duncan MD [address] [place] [address] [id number] [place] [address] Viral upper respiratory tract infection (Primary Dx); History of liver transplant (CMS/HCC); 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 (CMS/HCC); Immunocompromised patient (CMS/HCC); Cytomegalovirus infection, unspecified cytomegaloviral infection type (CMS/HCC) Social History Tobacco Use Types Packs/Day Years Used Date Smoking Tobacco: Never Smokeless Tobacco: Never Alcohol Use Standard Drinks/Week Comments Yes 0 (1 standard drink = 0.6 oz pur e alcohol) occassional Sex and Gender Information Value Date Recorded Sex Assigned at Not on file Legal Sex Male 6:28 AM SCALES INSPECTOR Gender Identity Not on file Sexual Orientation Straight 08/22/2021 9: 23 AM CDT documented as of this encounter Last Filed Vital Signs Vital Sign Reading Time Taken Comments Blood Pressure 122/68 12/25/2019 8:30 AM SCALES INSPECTOR Pulse 100 12/25/2019 8:30 AM SCALES INSPECTOR Temperature 38.4 ??C (101.2 ??F) 12/25/2019 8:[address] Respiratory Rate - - Oxygen Saturation - - Inhaled Oxygen Concentration - - Weight 56.3 kg (124 lb 1.6 oz) 12/25/2019 8:30 A M SCALES INSPECTOR Height 172.7 cm (5' 8 ) 12/25/2019 8:30 AM SCALES INSPECTOR Body Mass Index 18.87 12/25/2019 8:30 AM SCALES INSPECTOR documented in this encounter Ordered Prescriptions Prescription Sig Dispense Quantity Refills Last Filled Start Date End Date levoFLOXacin (LEVAQUIN) 500 mg tabletIndications: Pneumonia, Hospital Acquired Take 1.5 tablets (750 mg total) by mouth daily for 7 days 11 tablet 12/25/2019 0 levoFLOXacin (LEVAQUIN) 500 mg tabletIndications: Pneumonia, Hospital Acquired Take 1.5 tablets (750 mg total) by mouth daily for 7 days 11 tablet 12/25/2019 0 documented in this encounter Progress Notes * Jil Duncan MD - 12/25/2019 9:00 AM CST Subjective/Objective Patient ID: Beka Nichols is a 24 y.o. male. Chief Complaint Chief Complaint Patient presents with ??? 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 Since discharge last Wednesday - he felt better on Wednesday and Wednesday. He feels worse from Wednesday and morning. Complaints of worsening upper respiratory symptoms, cough, headaches when he coughs and sinus symptoms and fatigue. He has B/L red eyes which are watery. Today in clinic he had a temp of 38.4C. He denies any shortness of breath. From the consult note from 12/21/19 his history is summarized below. , Patient was recently admitted 10/10-10/2019 with increased adenopathy with fever and new night sweats. Work up was positive for adenovirus and parainfluenza with possible RML pneumonia. Inpatient PETshowed increase in size and avidity of diffuse adenopathy relative to 01/03/2019, as well as bilateral hypermetabolic pulmonary opacities. ??He underwent biopsy of a left axillary lymph node on October 13. ??The pathology showed organized lymphoid tissue with reactive features. ??No clonal B-cell or immunophenotypically abnormal T-cell population was identified on flow. ??JAKOB negative. ??For pneumonia, he was treated with azithromycin, cefepime, and vancomycin x2 days and then completed a course of levofloxacin. ? Patient also had peripheral blood CMV PCR detectable at 508 on 11/08/2019. ??The most recent titer prior to this point, in July 2019, was negative. ??Dr. Gresham instructed Mr. Nichols to increase his valacyclovir to 900 b.i.d. since 11/13. Resistance was sent. He was followed up in oncology clinic on 11/22/2019 when he felt overall well. CMV VL was <137. However, his VL continues to increas e despite treatment. On 12/02 was 530. 12/09: 626, 12/16: 940. CMV resistance testing was sent 12/12. ?? Two days prior to presentation on 12/21/19, patient began to have sore throat, productive cough, myalgia and fatigue. On the next day he developed fever. No shortness of breath, abdominal pain, diarrhea, nausea, vomiting. Just today he also has dysuria, no flank pain.His appetite is poor since he has had fever. Max temp at home was 102. ?? He lives in [facility] with his mother and brother. He works [...] ??? PNA (pneumonia) ??? Pulmonary emboli (CMS/HCC) Social History Socioeconomic History ??? Marital status: [...] file Gets together: Not on file Attends scientologist service: Not on file Active member of [...] Residential institution 10/05/17 (Added by TW Conv) Family History Problem Relation Age of Onset ??? Rectal cancer Mother Rectal cancer - (Added by TW Conv) ??? Diabetes type II Sister Family history of type 2 diabetes mellitus - (Added by TW Conv) ??? Anesthesia problems Other ROS : Objective Family History Problem Relation Age of Onset [...] ??? Drug use: Not Currently Social History Substance and Sexual Activity Sexual Activity Defer No Known Allergies Immunization History Administered Date(s) Administered ??? Influenza, Quadrivalent, Cell Culture-based MDCK, Preservative Free, Antibiotic Free, Intramuscular 09/28/2018 ??? Meningococcal MCV4P (Menactra) 11/11/2012 ??? Pneumococcal Polysaccharide PPV23 11/11/2012 ??? Pneumococcal, Unspecified 08/10/2013 Current Outpatient Medications: ??? acyclovir (ZOVIRAX) 400 mg tablet, Take 450 mg by mouth every 4 (four) hours while awake , Disp: , Rfl: ??? levoFLOXacin (LEVAQUIN) 500 mg tablet, Take 1.5 tablets (750 mg total) by mouth daily for 7 days, Disp: 11 tablet, Rfl: 0 ??? tacrolimus (PROGRAF) 0.5 mg capsule, Take 1 capsule (0.5 mg total) by mouth 2 (two) times a day, Disp: 180 capsule, Rfl: 3 ??? tacrolimus (PROGRAF) 0.5 mg capsule, , Disp: , Rfl: ??? valGANciclovir (VALCYTE) 450 mg tablet, Take 2 tablets (900 mg total) by mouth 2 (two) times a day, Disp: 28 tablet, Rfl: 0 Physical Exam Weight trend: Wt Readings from Last 3 Encounters: 12/25/19 56.3 kg (124 lb 1.6 oz) 12/21/19 59 kg (130 lb) 11/22/19 57.2 kg (126 lb) General Appearance: Alert, cooperative, B/L clear watery eyes with conjunctivitis. No purulence. HEENT: PERRL, EOM's intact, mucosa, and tongue normal. No nasal drainage or sinus tenderness. Neck supple. Cervical adenopathy as described before. Right NELY node appears prominent. No sinus tenderness . No eschar on palate. Pulmonary: Clear to auscultation bilaterally. Unlabored respirations. Cardiac:RRR, no heart murmurs. Back: No point tenderness along the spine. No skin lesions. No CVA tenderness. Abdomen: Soft, non-tender, bowel sounds present. No hepatosplenomegaly. Surgical scar + Extremities: No cyanosis or edema. Pulses present. Skin: color, texture, turgor normal, no rashes. Neurologic: Alert & oriented x 4. CNII-XII intact. Strength and sensation grossly normal Sats 96-97 % on RA Laboratory (most recent): Current CrCl: Estimated Creatinine Clearance: 110.1 mL/min (by C-G formula based on SCr of 0.81 mg/dL). Lab Results Component Value Date WBC 5.9 12/25/2019 HGB 15.6 12/25/2019 HCT 45.1 12/25/2019 MCV 94.9 12/25/2019 NEUTOPHILPCT 36.5 12/21/2019 LYMPHOPCT 50.5 12/21/2019 MONOPCT 7.8 12/21/2019 EOSPCT 0.7 12/16/2019 Lab Results Component Value Date CREATININE 0.81 12/21/2019 BUNSER 10 12/21/2019 GLUCOSE 95 12/21/2019 SODIUM 137 12/21/2019 POTASSIUM 4.1 12/21/2019 CHLORIDE 103 12/21/2019 CO2 25 12/21/2019 ANIONGAP 9 12/21/2019 BCR NOT APPLICABLE 05/26/2017 CALCIUM 8.8 12/21/2019 PROTEIN 5.7 (L) 12/16/2019 ALBUMIN 3.7 12/21/2019 ALT 57 (H) 12/21/2019 AST 55 (H) 12/21/2019 ALKPHOS 459 (H) 12/21/2019 BILITOT 0.8 12/21/2019 Recent Results (from the past 1008 hour(s)) Tacrolimus level trough Collection Time: 11/22/19 8:23 AM Result Value Ref Range Tacrolimus, trough 6.0 ng/mL Gamma GT Collection Time: 11/22/19 8:23 AM Result Value Ref Range GGT 295 (H) 10 - 50 Units/L Lactate dehydrogenase (LD) Collection Time: 11/22/19 8:23 AM Result Value Ref Range Lactate dehydrogenase (LDH) 256 (H) 100 - 250 Units/L Comprehensive metabolic panel Collection Time: 11/22/19 8:23 AM Result Value Ref Range Sodium 142 135 - 145 mmol/L Potassium, pl 4.2 3.3 - 4.9 mmol/L Chloride 107 97 - 110 mmol/L CO2 29 22 - 32 mmol/L Anion gap 6 2 - 15 mmol/L BUN 9 8 - 25 mg/dL Creatinine 0.81 0.80 - 1.30 mg/dL Glucose 76 70 - 199 mg/dL Calcium 8.8 8.5 - 10.3 mg/dL Bilirubin, total 0.5 0.1 - 1.2 mg/dL Protein, pl 6.0 (L) 6.5 - 8.5 g/dL Albumin 4.0 3.5 - 5.0 g/dL Alk phos 457 (H) 40 - 130 Units/L ALT 64 (H) 7 - 55 Units/L AST 54 (H) 10 - 50 Units/L CBC with auto differential Collection Time: 11/22/19 8:23 AM Result Value Ref Range WBC 6.9 3.8 - 9.8 K/cumm Hgb 14.9 13.8 - 17.2 g/dL Hct 44.0 40.7 - 50.3 % Plt 292 140 - 440 K/cumm MPV 7.4 6.8 - 10.4 fL RBC 4.52 4.50 - 5.70 M/cumm MCV 97.2 80.0 - 97.6 fL MCH 33.0 26.7 - 33.7 pg MCHC 33.9 32.7 - 35.5 g/dL RDW CV 14.9 (H) 11.8 - 14.6 % NRBC abs 0.00 0.00 - 0.01 K/cumm Differential, auto Collection Time: 11/22/19 8:23 AM Result Value Ref Range Neutrophil abs 3.5 1.8 - 6.6 K/cumm Lymphocyte abs 2.3 1.2 - 3.3 K/cumm Monocyte abs 0.5 0.2 - 1.2 K/cumm Eosinophil abs 0.5 0.0 - 0.5 K/cumm Basophil abs 0.0 0.0 - 0.2 K/cumm Neutrophil pct 51.1 % Lymphocyte pct 33.7 % Monocyte pct 7.8 % Eosinophil pct 6.7 % Basophil pct 0.7 % Cytomegalovirus (CMV) DNA PCR, quantitative Blood Collection Time: 11/22/19 8:27 AM Result Value Ref Range CMV DNA Detected (A) CMV DNA IU/mL <137 IUnits/mL CMV DNA log IU/mL <2.14 log IUnits/mL COPY(IES) SENT TO: Collection Time: 12/02/19 9:25 AM Result Value Ref Range COPY(IES) SENT TO: CBC with auto differential Collection Time: 12/02/19 9:25 AM Result Value Ref Range WBC 4.2 3.8 - 10.8 Thousand/uL RBC, POC 4.51 4.20 - 5.80 Million/uL Hgb 15.0 13.2 - 17.1 g/dL Hct 43.4 38.5 - 50.0 % MCV 96.2 80.0 - 100.0 fL MCH 33.3 (H) 27.0 - 33.0 pg MCHC 34.6 32.0 - 36.0 g/dL Rdw 14.5 11.0 - 15.0 % Platelets 321 140 - 400 Thousand/uL MPV 9.5 7.5 - 12.5 fL Neutrophils, abs 958 (L) 1,500 - 7,800 cells/uL Lymphocytes, abs 2,285 850 - 3,900 cells/uL Monocyte abs 777 200 - 950 cells/uL Eosinophils, abs 71 15 - 500 cells/uL Basophils, abs 109 0 - 200 cells/uL Neutrophils 22.8 % Lymphocyte pct 54.4 % Monocytes 18.5 % Eosinophils 1.7 % Basophils 2.6 % Gamma GT Collection Time: 12/02/19 9:25 AM Result Value Ref Range GGT 342 (H) 3 - 70 U/L Comprehensive metabolic panel Collection Time: 12/02/19 9:25 AM Result Value Ref Range Glucose 69 65 - 99 mg/dL BUN 11 7 - 25 mg/dL Creatinine 1.07 0.60 - 1.35 mg/dL eGFR NON-AFR. JORDANIAN 95 > OR = 60 mL/min/1.73m2 EGFR 110 > OR = 60 mL/min/1.73m2 BUN/creat ratio NOT APPLICABLE 6 - 22 (calc) Sodium 142 135 - 146 mmol/L Potassium, pl 4.5 3.5 - 5.3 mmol/L Chloride 104 98 - 110 mmol/L CO2 25 20 - 32 mmol/L Calcium 9.0 8.6 - 10.3 mg/dL Protein, sr 5.6 (L) 6.1 - 8.1 g/dL Albumin 4.0 3.6 - 5.1 g/dL GLOBULIN 1.6 (L) 1.9 - 3.7 g/dL (calc) Alb/glob ratio 2.5 1.0 - 2.5 (calc) Bilirubin, total 0.7 0.2 - 1.2 mg/dL Alk phos 498 (H) 40 - 115 U/L AST 55 (H) 10 - 40 U/L ALT (SGPT) 75 (H) 9 - 46 U/L Tacrolimus level trough Collection Time: 12/02/19 9:25 AM Result Value Ref Range Tacrolimus, Highly Sensitive, LC/MS/MS 5.0 mcg/L CMV DNA QN, PCR Collection Time: 12/02/19 9:25 AM Result Value Ref Range SOURCE BLOOD CMV DNA, QN REAL TIME PCR 530 (H) IU/mL CMV DNA, QN PCR 2.72 (H) Log IU/mL COPY(IES) SENT TO: Collection Time: 12/09/19 9:26 AM Result Value Ref Range COPY(IES) SENT TO: Gamma GT Collection Time: 12/09/19 9:26 AM Result Value Ref Range GGT 272 (H) 3 - 70 U/L Comprehensive metabolic panel Collection Time: 12/09/19 9:26 AM Result Value Ref Range Glucose 141 (H) 65 - 99 mg/dL BUN 12 7 - 25 mg/dL Creatinine 0.90 0.60 - 1.35 mg/dL eGFR NON-AFR. JORDANIAN 117 > OR = 60 mL/min/1.73m2 EGFR 136 > OR = 60 mL/min/1.73m2 BUN/creat ratio NOT APPLICABLE 6 - 22 (calc) Sodium 139 135 - 146 mmol/L Potassium, pl 4.4 3.5 - 5.3 mmol/L Chloride 108 98 - 110 mmol/L CO2 25 20 - 32 mmol/L Calcium 9.0 8.6 - 10.3 mg/dL Protein, sr 5.2 (L) 6.1 - 8.1 g/dL Albumin 3.9 3.6 - 5.1 g/dL GLOBULIN 1.3 (L) 1.9 - 3.7 g/dL (calc) Alb/glob ratio 3.0 (H) 1.0 - 2.5 (calc) Bilirubin, total 0.5 0.2 - 1.2 mg/dL Alk phos 454 (H) 36 - 130 U/L AST 34 10 - 40 U/L ALT (SGPT) 47 (H) 9 - 46 U/L CBC with auto differential Collection Time: 12/09/19 9:26 AM Result Value Ref Range WBC 7.9 3.8 - 10.8 Thousand/uL RBC, POC 4.60 4.20 - 5.80 Million/uL Hgb 15.4 13.2 - 17.1 g/dL Hct 44.2 38.5 - 50.0 % MCV 96.1 80.0 - 100.0 fL MCH 33.5 (H) 27.0 - 33.0 pg MCHC 34.8 32.0 - 36.0 g/dL Rdw 14.6 11.0 - 15.0 % Platelets 326 140 - 400 Thousand/uL MPV 10.1 7.5 - 12.5 fL Neutrophils, abs 3,263 1,500 - 7,800 cells/uL Lymphocytes, abs 3,484 850 - 3,900 cells/uL Monocyte abs 956 (H) 200 - 950 cells/uL Eosinophils, abs 63 15 - 500 cells/uL Basophils, abs 134 0 - 200 cells/uL Neutrophils 41.3 % Lymphocyte pct 44.1 % Monocytes 12.1 % Eosinophils 0.8 % Basophils 1.7 % CMV DNA QN, PCR Collection Time: 12/09/19 9:26 AM Result Value Ref Range SOURCE VENOUS CMV DNA, QN REAL TIME PCR 626 (H) IU/mL CMV DNA, QN PCR 2.80 (H) Log IU/mL Tacrolimus level trough Collection Time: 12/09/19 9:26 AM Result Value Ref Range Tacrolimus, Highly Sensitive, LC/MS/MS 6.3 mcg/L COPY(IES) SENT TO: Collection Time: 12/16/19 10:28 AM Result Value Ref Range COPY(IES) SENT TO: CBC with auto differential Collection Time: 12/16/19 10:28 AM Result Value Ref Range WBC 7.2 3.8 - 10.8 Thousand/uL RBC, POC 4.68 4.20 - 5.80 Million/uL Hgb 15.5 13.2 - 17.1 g/dL Hct 44.7 38.5 - 50.0 % MCV 95.5 80.0 - 100.0 fL MCH 33.1 (H) 27.0 - 33.0 pg MCHC 34.7 32.0 - 36.0 g/dL Rdw 14.7 11.0 - 15.0 % Platelets 301 140 - 400 Thousand/uL MPV 10.0 7.5 - 12.5 fL Neutrophils, abs 4,226 1,500 - 7,800 cells/uL Lymphocytes, abs 2,311 850 - 3,900 cells/uL Monocyte abs 511 200 - 950 cells/uL Eosinophils, abs 50 15 - 500 cells/uL Basophils, abs 101 0 - 200 cells/uL Neutrophils 58.7 % Lymphocyte pct 32.1 % Monocytes 7.1 % Eosinophils 0.7 % Basophils 1.4 % Gamma GT Collection Time: 12/16/19 10:28 AM Result Value Ref Range GGT 283 (H) 3 - 70 U/L Comprehensive metabolic panel Collection Time: 12/16/19 10:28 AM Result Value Ref Range Glucose 118 (H) 65 - 99 mg/dL BUN 9 7 - 25 mg/dL Creatinine 0.78 0.60 - 1.35 mg/dL eGFR NON-AFR. JORDANIAN 125 > OR = 60 mL/min/1.73m2 EGFR 144 > OR = 60 mL/min/1.73m2 BUN/creat ratio NOT APPLICABLE 6 - 22 (calc) Sodium 144 135 - 146 mmol/L Potassium, pl 4.6 3.5 - 5.3 mmol/L Chloride 108 98 - 110 mmol/L CO2 23 20 - 32 mmol/L Calcium 9.3 8.6 - 10.3 mg/dL Protein, sr 5.7 (L) 6.1 - 8.1 g/dL Albumin 4.1 3.6 - 5.1 g/dL GLOBULIN 1.6 (L) 1.9 - 3.7 g/dL (calc) Alb/glob ratio 2.6 (H) 1.0 - 2.5 (calc) Bilirubin, total 0.4 0.2 - 1.2 mg/dL Alk phos 476 (H) 36 - 130 U/L AST 42 (H) 10 - 40 U/L ALT (SGPT) 50 (H) 9 - 46 U/L Tacrolimus level trough Collection Time: 12/16/19 10:28 AM Result Value Ref Range Tacrolimus, Highly Sensitive, LC/MS/MS 3.8 (L) mcg/L CMV DNA QN, PCR Collection Time: 12/16/19 10:28 AM Result Value Ref Range SOURCE WHOLE BLOOD CMV DNA, QN REAL TIME PCR 940 (H) IU/mL CMV DNA, QN PCR 2.97 (H) Log IU/mL Comprehensive metabolic panel Collection Time: 12/21/19 1:49 [...] for urine culture (WBC >10) not met. Bartonella anitbody panel Collection Time: 12/21/19 9:47 PM Result Value Ref Range B Henselae, IgG <1:128 <1:128 titer B Henselae, IgM <1:20 <1:20 titer B. Mata, IgG <1:128 <1:128 titer B. Mata, IgM <1:20 <1:20 titer Toxoplasma antibodies, IgG and IgM Collection Time: 12/21/19 9:47 PM Result Value Ref Range Toxoplasma IgG Negative Negative Toxoplasma IgM Negative Negative Cytomegalovirus (CMV) DNA PCR, quantitative Blood Collection Time: 12/22/19 1:38 PM Result Value Ref Range CMV DNA Detected (A) CMV DNA IU/mL 500 IUnits/mL CMV DNA log IU/mL 2.70 log IUnits/mL CBC with auto differential Collection Time: 12/25/19 10:35 AM Result Value Ref Range WBC 5.9 3.8 - 9.9 K/cumm Hgb 15.6 13.0 - 17.5 g/dL Hct 45.1 38.9 - 50.3 % Plt 315 150 - 400 K/cumm MPV 9.7 9.1 - 12.3 fL RBC 4.75 4.30 - 5.80 M/cumm MCV 94.9 81.3 - 96.4 fL MCH 32.8 27.1 - 33.3 pg MCHC 34.6 32.3 - 35.7 g/dL RDW CV 14.6 11.1 - 14.9 % RDW SD 51.8 (H) 35.7 - 48.1 fL NRBC abs 0.00 0.00 - 0.01 K/cumm Lab Results Component Value Date MICROBIOLOGY Preliminary [...] 12/19/2017 MICROBIOLOGY Final Report: No growth 12/19/2017 CXR 12/25/19 : compared to 12/21/19 and PET Scan on October 2019 Mild left MZ prominence / infiltrate / nodules. Discussed with radiology- corresponds to the LN's seen on CT before. No new infiltrates. Assessment/Plan Assessment/Plan Diagnoses and all orders for this visit: Viral upper respiratory tract infection (Primary) - Blood culture Blood; Future - Blood culture Blood; Future - CBC with auto differential; Future - Comprehensive metabolic panel (Outreach); Future History of liver transplant (CMS/HCC) PTLD after liver transplantation (CMS/HCC) Immunocompromised patient (CMS/HCC) Cytomegalovirus infection, unspecified cytomegaloviral infection type (CMS/HCC) Other orders - levoFLOXacin (LEVAQUIN) 500 mg tablet; Take 1.5 tablets (750 mg total) by mouth daily for 7 days Beka continues to feel poorly after feeling better on Wednesday and Wednesday. He is febrile today with persistent URI symptoms and possible sinusitis. His vitals are stable . He denies any new symptoms (no diarrhea, rash or worsening throat pain etc). Possibilities include a secondary bacterial infection after his initial rhino/entero infection withsinusitis or another viral infection with flu/adenovirus etc. The rhino/enterovirus alone is unlikley to account for his biphasic illness recurrence of symptoms and fevers. Plan : - Will get new blood cultures today with CXR and repeat a FLU swab. I offered to admit him for observation but he preferred to stay outpatient. - I will prescribe him Levoflox for 7 days ( targeting atypical PNA / Sinusitis in immune compromised patient ) Close clinical follow up . I have asked him and his mother to monitor closely for warning signs of deterioration - If he has persistence of fevers - will plan on repeat CT chest and blood adenovirus/HIV VL and follow up EBV PCR's Which has been send during the recent admit. -Will also need to f/u CMV resistance panel send. He has very low CMV viremia which has not changedappreciably despite oral induction dose of valganciclovir. I agree with the inpatient team and do not think this is responsible for his symptoms - it is more likely a reflection of immune dysregulation and intercurrent illness. There is also a worry that his PTLD may be relapsing. ES INSPECTOR documented in this encounter Plan of Treatment Scheduled Procedures Name Priority Associated Diagnoses Date/Ti me COLONOSCOPY Encounter for screening for colorectal cancer in high risk patient Family history of rectal cancer documented as of this encounter Results * Blood culture Blood Arm, right (12/25/2019 10:41 AM SCALES INSPECTOR) Report Final Report: No growth [facility] Blood specimen (specimen) (Arm, right) 12/25/2019 10:41 AM SCALES INSPECTOR 12/25/2019 10:52 AM SCALES INSPECTOR Narrative [facility] - 12/30/2019 12:02 PM SCALES INSPECTOR 1. Blood cultures are incubated for 5 [...] organism identification may be performed using the [employer] Gram-Positive Blood Culture Assay. This assay detects microbial DNA in positive blood culture broth via hybridization of target DNA to capture oligonucleotides on a microarray. This assay has been cleared by the [place] Food and Drug Administration and its performance characteristics have been verified by the [facility]. 5. For questions about this culture, contact the Microbiology Laboratory at [phone]. Interpretive data was last revised on 2018. Jil Duncan MD LAB MICROBIOLOGY - GENERAL ORDERABLES Final Result Performing Organization Address City/[facility]/ZIP Co de Phone Number [facility] [place] [address] * (ABNORMAL) CBC with auto differential (12/25/2019 10:35 AM SCALES INSPECTOR) WBC 5.9 3.8 - 9.9 K/cumm [facility] Hgb 15.6 13.0 - 17.5 g/dL [facility] Hct 45.1 38.9 - 50.3 % [facility] Plt 315 150 - 400 K/cumm [facility] MPV 9.7 9.1 - 12.3 fL [facility] RBC 4.75 4.30 - 5.80 M/cumm [facility] MCV 94.9 81.3 - 96.4 fL [facility] MCH 32.8 27.1 - 33.3 pg [facility] MCHC 34.6 32.3 - 35.7 g/dL [facility] RDW CV 14.6 11.1 - 14.9 % [facility] RDW SD 51.8(H) 35.7 - 48.1 fL [facility] NRBC abs 0.00 0.00 - 0.01 K/cumm [facility] Blood specimen (specimen) 12/25/2019 10:35 AM SCALES INSPECTOR 12/25/2019 12:03 PM SCALES INSPECTOR Jil Duncan MD LAB BLOOD ORDERABLES Edite d Result - Final [facility] [place] [address] * Blood culture Blood Arm, left (12/25/2019 10:35 AM SCALES INSPECTOR) Report Final Report: No growth [facility] Blood specimen (specimen) (Arm, left) 12/25/2019 10:35 AM SCALES INSPECTOR 12/25/2019 10:52 AM SCALES INSPECTOR [facility] - 12/30/2019 12:02 PM SCALES INSPECTOR 1. Blood cultures are incubated for 5 [...] organism identification may be performed using the [employer] Gram-Positive Blood Culture Assay. This assay detects microbial DNA in positive blood culture broth via hybridization of target DNA to capture oligonucleotides on a microarray. This assay has been cleared by the [place] Food and Drug Administration and its performance characteristics have been verified by the [facility]. 5. For questions about this culture, contact the Microbiology Laboratory at [phone]. Interpretive data was last revised on 2018. Ige Sonido Duncan MD LAB MICROBIOLOGY - GENERAL ORDERABLES Final Result [facility] [place] [address] documented in this encounter Visit Diagnoses Diagnosis Viral upper respiratory tract infection- Primary Acute upper respiratory infections of unspecified site History of liver transplant (CMS/HCC) (HCC) 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) Immunocompromised patient (HCC) Cytomegalovirus infection, unspecified cytomegaloviral infection type (HCC) Viral upper respiratory tract infection Acute upper respiratory infections of unspecified site Fever, unspecified fever cause documented in this encounter Discontinued Medications Medication Sig Discontinue Reason Start Date End Da te levoFLOXacin (LEVAQUIN) 500 mg tabletIndications:Pneumo tiago, Hospital Acquired Take 1.5 tablets (750 mg total) by mouth daily for 7 days 12/25/2019 12/25/2019 documented as of this encounter Additional Health Concerns Infection Onset Date Last Indicated Resolved Time Rhino/Enterovirus 12/21/2019 12/21/2019 12/28/2019 3:05 AM SCALES INSPECTOR documented as of this encounter Care Teams Power Wheelchair Mechanic Relationship Specialty Start Date End Date Guero Colunga DO PCP - General Internal Medicine 03/22/19 04/18/23 Amber Montesinos, RN Sleep Lab Technician Transplant 11/17/19 documented as of this encounter
--- OUTSIDE RECORDS SUMMARY | 2024-10-28 06:24 | XMS_ITS | Encounter Summary ---
Author Organization [facility] Address [address] [place] [address] Phone Care Team Providers Care Tractor Crane Engineer Name Role Phone Guero Colunga DO Primary Care Provider Amber Montesinos RN Unavailable [phone] Reason for Visit * Reason Onset Date Comments Test Results 11/22/2019 Lt knee xray Encounter Details Date Type Department Care Team (Late st Contact Info) Description 11/22/[address] [facility] 7th [place] [address] [place] [address] Sherin Sam RN Test Results (Lt knee xray) Social History Tobacco Use Types Packs/Day Years Used Date Smoking Tobacco: Never Smokeless Tobacco: Never Sex and Gender Information Value Date Recorded Sex Assigned at Not on file Legal Sex Male 6:28 AM DYEING MACHINE TENDER Gender Identity Not on file Sexual Orientation Straight 08/22/2021 9: 23 AM CDT documented as of this encounter Miscellaneous Notes * Telephone Encounter - Sherin Sam RN - 11/22/2019 11:18 AM CST Called Beka to review results of his Lt knee xray from this morning. I let him know that there was no evidnece of fracture, but that it did show a small effusion likely from the trauma of his fall.Encouraged time, rest, elevation, ice and anti-inflammatories, which he was agreeable to. NG MACHINE TENDER documented in this encounter Plan of Treatment Scheduled Procedures Name Priority Associated Diagnoses Date/Ti me COLONOSCOPY Encounter for screening for colorectal cancer in high risk patient Family history of rectal cancer documented as of this encounter Visit Diagnoses Not on filedocumented in this encounter Care Teams Tractor Crane Engineer Relationship Specialty Start Date End Date Guero Colunga DO PCP - General Internal Medicine 03/22/19 04/18/23 Amber Montesinos, SHAILESH Dining Room Attendant Transplant 11/17/19 documented as of this encounter
--- OUTSIDE RECORDS SUMMARY | 2024-10-28 06:24 | XMS_ITS | Encounter Summary ---
Author Organization [facility] Healthcare Address [address] [place] [address] Care Team Providers Care Multi Needle Machine Operator Name Role Phone Guero Colunga DO Primary Care Provider [phone] Amber Montesinos RN Unavailable [phone] Encounter Details Date Type Department Care Team (Late st Contact Info) Description 12/19/2019 Telephone [facility] Liver [address] [facility] [phone] [place] [address] Amber Montesinos, SHAILESH Social History Tobacco Use Types Packs/Day Years Used Date Smoking Tobacco: Never Smokeless Tobacco: Never Sex and Gender Information Value Date Recorded Sex Assigned at Not on file Legal Sex Male 6:28 AM ROADSIDE MECHANIC Gender Identity Not on file Sexual Orientation Straight 08/22/2021 9: 23 AM CDT documented as of this encounter Miscellaneous Notes * Telephone Encounter - Jacquelyn Welsh - 12/19/2019 3:42 PM CST Call pt's mom to review labs from 12/16 SIDE MECHANIC * Telephone Encounter - Amber Vargas RN - 12/19/2019 11:44 AM ROADSIDE MECHANIC Reviewed patient's most recent labs with Dr. Lemus. 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 Called [facility] and the CMV resistance test is in process- send out lab to [place] so it will not result for another 2 days. Will send an [employer] message to Dr. Jil Duncan, transplant infectious MD, to review case per Dr. Lemus. SIDE MECHANIC documented in this encounter Plan of Treatment Scheduled Procedures Name Priority Associated Diagnoses Date/Ti me COLONOSCOPY Encounter for screening for colorectal cancer in high risk patient Family history of rectal cancer documented as of this encounter Visit Diagnoses Not on filedocumented in this encounter Care Teams Multi Needle Machine Operator Relationship Specialty Start Date End Date Guero Colunga DO PCP - General Internal Medicine 03/22/19 04/18/23 Amber Montesinos, RN Dobby Loom Weaver Transplant 11/17/19 documented as of this encounter
--- OUTSIDE RECORDS SUMMARY | 2024-10-28 06:24 | XMS_ITS | Encounter Summary ---
Author Organization [facility] Healthcare Address [address] [place] [address] Care Team Providers Care Indirect Fire Infantryman Name Role Phone Munira Rick RN Unavailable [phone] Guero Colunga DO Primary Care Provider [phone] Encounter Details Date Type Department Care Team (Late st Contact Info) Description 11/13/2019 Telephone [facility] Liver [address] [facility] [phone] [place] [address] Munira Rick, RN [address] [facility] [address] [place] [address] Social History Tobacco Use Types Packs/Day Years Used Date Smoking Tobacco: Never Smokeless Tobacco: Never Sex and Gender Information Value Date Recorded Sex Assigned at Not on file Legal Sex Male 6:28 AM COLLECTIVE BARGAINING SPECIALIST Gender Identity Not on file Sexual Orientation Straight 08/22/2021 9: 23 AM CDT documented as of this encounter Ordered Prescriptions Prescription Sig Dispense Quantity Refills Last Filled Start Date End Date valGANciclovir (VALCYTE) 450 mg tabletIndications: Other (complete free text reason below),CMV Viremia Take 2 tablets (900 mg total) by mouth 2 (two) times a day 120 tablet 2 11/13/2019 0 documented in this encounter Miscellaneous Notes * Telephone Encounter - Eli Brink - 11/14/2019 10:14 AM CST SO renewed in [facility] ECTIVE BARGAINING SPECIALIST * Telephone Encounter - Munira Rick - 11/13/2019 2:27 PM CST Message from Rafai Bautista MD sent at 11/13/2019 2:20 PM COLLECTIVE BARGAINING SPECIALIST ----- Yes, his Valcyte can be increased to 900 mg BID with weekly labs and CMV DNA. 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 Will ask Victorina to please send new SO for weekly CMV PCR Quant, Tacrolimus level, CMP, CBC, and GGT. THank you. ECTIVE BARGAINING SPECIALIST * Telephone Encounter - Munira Rick - 11/13/2019 2:26 PM CST ----- Message from Rafia Bautista MD sent at 11/13/2019 2:20 PM COLLECTIVE BARGAINING SPECIALIST ----- Yes, his Valcyte can be increased to 900 mg BID with weekly labs and CMV DNA. Thanks ECTIVE BARGAINING SPECIALIST documented in this encounter Plan of [...] by mouth 2 (two) times a day 11/13/2019 11/13/2019 documented as of this encounter Care Teams Indirect Fire Infantryman Relationship Specialty Start Date End Date Guero Colunga DO [address] [facility] [address] [place] [address] PCP - General Internal Medicine 03/22/19 04/18/23 Munira Rick, RN [address] [address] Prosthodontist/Owner 04/01/18 documented as of this encounter
--- OUTSIDE RECORDS SUMMARY | 2024-10-28 06:24 | XMS_ITS | Encounter Summary ---
Author Organization [facility] Healthcare Address [address] [place] [address] Care Team Providers Care Instrument Mechanic Weapons System Name Role Phone Guero Colunga DO Primary Care Provider [phone] Amber Montesinos RN Unavailable [phone] Reason for Referral * Diagnostic Imaging (Routine) - Closed Specialty Diagnoses / Procedures Referred By Contyadira t Referred To Contact Diagnoses Fever, unspecified fever cause Procedures X-ray chest 2 views Jil Duncan MD [address] [place] [address] Phone: tel: fax: [address] [phone] Referral ID Status Reason Start Date Expiration Date Visits Re quested Visits Authorized [id number] Closed 12/25/2019 07/05/2021 1 1 [facility] Reason for Visit * Diagnostic Imaging (Routine) - Closed Specialty Diagnoses / Procedures Referred By Contac t Referred To Contact Diagnoses Fever, unspecified fever cause Procedures X-ray chest 2 views Jil Duncan MD [address] [place] [address] Phone: tel: fax: [address] [phone] Referral ID Status Reason Start Date Expiration Date Visits Re quested Visits Authorized [id number] Closed 12/25/2019 07/05/2021 1 1 Encounter Details Date Type Department Care Team (Latest Contact Info) Description 12/25/2019 10:20 AM LICENSED PSYCHOLOGIST DIRECTOR - 12/25/2019 11:59 PM LICENSED PSYCHOLOGIST DIRECTOR Hospital Encounter [facility] [address] [place] [address] Jil Duncan MD [address] [facility] [address] [place] [address] Fever, unspecified fever cause Discharge Disposition: Discharge to home or self care Social History Tobacco Use Types Packs/Day Years Used Date Smoking Tobacco: Never Smokeless Tobacco: Never Alcohol Use Standard Drinks/Week Comments Yes 0 (1 standard drink = 0.6 oz pur e alcohol) occassional Sex and Gender Information Value Date Recorded Sex Assigned at Not on file Legal Sex Male 6:28 AM LICENSED PSYCHOLOGIST DIRECTOR Gender Identity Not on file Sexual Orientation Straight 08/22/2021 9: 23 AM CDT documented as of this encounter Medications at Time of Discharge levoFLOXacin (LEVAQUIN) 500 mg tabletIndications :Pneumonia, Hospital Acquired Take 1.5 tablets (750 mg total) by mouth daily for 7 days 11 tablet 12/25/2019 01/01/2020 acyclovir (ZOVIRAX) 400 mg tablet Take 450 [...] Procedure Name Priority Date/Time Associated Diagnosis Comments SENIOR STAFF REVIEW Routine 12/25/2019 10:35 AM LICENSED PSYCHOLOGIST DIRECTOR XR CHEST PA LATERAL 2 VIEWS Schedule Routine, Read Routine (OP Routine) 12/25/2019 10:29 AM LICENSED PSYCHOLOGIST DIRECTOR Fever, unspecified fever cause documented in this encounter Results * Senior staff review (12/25/2019 10:35 AM LICENSED PSYCHOLOGIST DIRECTOR) Senior Staff Review Specimen Blood BROOKE BUTCHER Senior Staff Review Review Done BROOKE BUTCHER Comment:Reviewed by senior celi gutierrez.12/25/2019 13:23:51 LICENSED PSYCHOLOGIST DIRECTOR by . Blood specimen (specimen) 12/25/2019 10:35 AM LICENSED PSYCHOLOGIST DIRECTOR 12/25/2019 12:03 PM LICENSED PSYCHOLOGIST DIRECTOR us Ige Sonido Duncan MD LAB BLOOD ORDERABLES Edite d Result - Final [facility] [place] [address] * X-ray chest 2 views (12/25/2019 10:29 AM LICENSED PSYCHOLOGIST DIRECTOR) Anatomical Region Laterality Modality Body, Chest N/A Computed Radiogr aphy 12/25/2019 11:3 7 AM LICENSED PSYCHOLOGIST DIRECTOR Impressions 12/25/2019 11:45 AM LICENSED PSYCHOLOGIST DIRECTOR Comparison is made to prior exam(s) on [...] Gilman M.D., MPH Narrative 12/25/2019 11:45 AM LICENSED PSYCHOLOGIST DIRECTOR EXAMINATION: 2 view chest radiograph Procedure Note [...] Electronically signed by: Robert Gilman M.D., MPH Ige Sonido Duncan MD IMG XR PROCEDURES Final Re sult documented in this encounter Visit Diagnoses Diagnosis Fever, unspecified fever cause documented in this encounter Additional Health Concerns Infection Onset Date Last Indicated Resolved Time Rhino/Enterovirus 12/21/2019 12/21/2019 12/28/2019 3:05 AM LICENSED PSYCHOLOGIST DIRECTOR documented as of this encounter Care Teams Instrument Mechanic Weapons System Relationship Specialty Start Date End Date Guero Colunga DO PCP - General Internal Medicine 03/22/19 04/18/23 Amber Montesinos, SHAILESH Environmental Lawyer Transplant 11/17/19 documented as of this encounter
--- OUTSIDE RECORDS SUMMARY | 2024-10-28 06:24 | XMS_ITS | Encounter Summary ---
Author Organization [facility] Healthcare Address [address] [place] [address] Care Team Providers Care Alternative Financing Specialist Name Role Phone Gene Colungae Primary Care Provider [phone] Amber Montesinos RN Unavailable [phone] Reason for Referral * Diagnostic Imaging (Routine) - Closed Specialty Diagnoses / Procedures Referred By Contac t Referred To Contact Diagnoses High grade B-cell lymphoma (HCC) Procedures XR Knee Left 3 Views Anita Gillespie MD Phone: tel: fax: [address] [phone] Referral ID Status Reason Start Date Expiration Date Visits Re quested Visits Authorized [id number] Closed 11/22/2019 06/02/2021 1 1 T REVIEWER Reason for Visit * Diagnostic Imaging (Routine) - Closed Specialty Diagnoses / Procedures Referred By Contac t Referred To Contact Diagnoses High grade B-cell lymphoma (HCC) Procedures XR Knee Left 3 Views Anita Gillespie MD Phone: tel: fax: [address] [phone] Referral ID Status Reason Start Date Expiration Date Visits Re quested Visits Authorized [id number] Closed 11/22/2019 06/02/2021 1 1 Encounter Details Date Type Department Care Team (Latest Contact Info) Description 11/22/2019 9:26 AM AUDIT REVIEWER - 11/22/2019 11:59 PM AUDIT REVIEWER Hospital Encounter [facility] [address] [place] [address] Anita Gillespie MD [address] [facility] [address] [place] [address] High grade B-cell lymphoma (CMS/HCC) Discharge Disposition: Discharge to home or self care Social History Tobacco Use Types Packs/Day Years Used Date Smoking Tobacco: Never Smokeless Tobacco: Never Sex and Gender Information Value Date Recorded Sex Assigned at Not on file Legal Sex Male 6:28 AM AUDIT REVIEWER Gender Identity Not on file Sexual Orientation [...] times a day 120 tablet 2 11/13/2019 12/21/2019 documented as of this encounter Discharge Disposition Disposition Code Departure Means Destination Discharge to home or self care documented in this encounter Plan of Treatment Scheduled Procedures Name Priority Associated Diagnoses Date/Ti in COLONOSCOPY Encounter for screening for colorectal cancer in high risk patient Family history of rectal cancer documented as of this encounter Procedures Procedure Name Priority Date/Time Associated Diagnosis Comments XR KNEE LEFT 3 VIEWS Schedule ZAHRA, Read ZAHRA (Appt Today, Awaiting Results) 11/22/2019 9:39 AM AUDIT REVIEWER High grade B-cell lymphoma (CMS/HCC) documented in this encounter Results * XR Knee Left 3 Views (11/22/2019 9:39 AM AUDIT REVIEWER) Anatomical Region Laterality Modality Lower Extremities, Knee Left Computed Radiography 11/22/2019 9:44 AM AUDIT REVIEWER Impressions 11/22/2019 9:59 AM AUDIT REVIEWER Small left knee effusion. Dictated by: Александр Lewis M.D. The radiology attending physician has personally reviewed this study, and had reviewed and/or edited this written report and agrees with it. Electronically signed by: Rashid Galindo M.D. Narrative 11/22/2019 9:59 AM AUDIT REVIEWER EXAMINATION: XR KNEE LEFT 3 VIEWS HISTORY: [...] B-cell lymphoma (HCC) documented in this encounter Care Teams Alternative Financing Specialist Relationship Specialty Start Date End Date Guero Colunga DO PCP - General Internal Medicine 03/22/19 04/18/23 Amber Montesinos, SHAILESH Manager Progressive Care Transplant 11/17/19 documented as of this encounter
--- OUTSIDE RECORDS SUMMARY | 2024-10-28 06:24 | XMS_ITS | Encounter Summary ---
Author Organization 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); Cytomegalovirus infection, unspecified cytomegaloviral infection type (CMS/HCC); History of liver transplant (CMS/HCC); High grade B-cell lymphoma ([facility]/HCC) Social History Tobacco Use Types Packs/Day Years Used Date Smoking Tobacco: Never Smokeless Tobacco: Never Sex and Gender Information Value Date Recorded Sex Assigned at Not on file Legal Sex Male 6:[address] CLERK Gender Identity Not on file Sexual [...] CYTOMEGALOVIRUS (CMV) DNA, QUANT GEN LAB Routine 11/22/2019 8:[address] CLERK Cytomegalovirus infection, unspecified cytomegaloviral infection type (CMS/HCC) History of liver transplant (CMS/HCC) DIFFERENTIAL AUTO Routine 11/22/2019 8:2 [address] CLERK 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) CBC WITH AUTO DIFFERENTIAL Routine 11/22/2019 8:[address] CLERK 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) TACROLIMUS LEVEL, TROUGH Routine 11/22/2019 8:[address] CLERK History of liver transplant (CMS/HCC) LACTATE DEHYDROGENASE Routine 11/22/2019 8:[address] CLERK 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) GAMMA GT Routine 11/22/2019 8:[address] CLERK History of liver transplant (CMS/HCC) COMPREHENSIVE METABOLIC PANEL Routine 11/22/2019 8:[address] CLERK 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 Testing was performed by the NIA AmpliPrep/NIA TaqMan CMV Test ([employer] Testing performed at [facility] Current interpretive data was last revised on 17. CMV DNA IU/mL <137 IUnits/mL [facility] CMV DNA log IU/mL <2.14 log IUnits/mL [facility] Blood specimen (specimen) 11/22/2019 8:[address] CLERK 11/22/2019 10:[address] CLERK us Theodore Gresham MD LAB MICROBIOLOGY - GENERAL ORDERABLES Final Result [facility] Department [place] [address] * Differential, auto (11/22/2019 8:[address] CLERK) Neutrophil abs 3.5 1.8 - 6.6 K/cumm [facility] Comment:Testing performed by : [facility], [address] [place] [phone] Lymphocyte abs 2.3 1.2 - 3.3 K/cumm [facility] Comment:Testing performed by : [facility], [address] [place] [phone] Monocyte abs 0.5 0.2 - 1.2 K/cumm [facility] Comment:Testing performed by : [facility], [address] [place] [phone] Eosinophil abs 0.5 0.0 - 0.5 K/cumm [facility] Comment:Testing performed by : [facility], [address] [place] [phone] Basophil abs 0.0 0.0 - 0.2 K/cumm [facility] Comment:Testing performed by : [facility], [address] [place] [phone] Neutrophil pct 51.1 % [facility] Comment: Interpretive Data Percent cell count reference ranges are not reported, since discordance with absolute values may lead to misinterpretation of CBC data. Current Interpretive Data was last revised on 2018. Testing performed by: [facility], [address] [place] [phone] Lymphocyte pct 33.7 % [facility] Comment: Interpretive Data Percent cell count reference ranges are not reported, since discordance with absolute values may lead to misinterpretation of CBC data. Current Interpretive Data was last revised on 2018. Testing performed by: [facility], [address] [place] [phone] Monocyte pct 7.8 % [facility] Comment:Testing performed by : [facility], [address] [place] [phone] Eosinophil pct 6.7 % [facility] Comment:Testing performed by : [facility], [address] [place] [phone] Basophil pct 0.7 % [facility] Comment:Testing performed by : [facility], [address] [place] [phone] Blood specimen (specimen) 11/22/2019 8:[address] CLERK 11/22/2019 8:[address] CLERK us Anita Gillespie MD LAB BLOOD ORDERABLES Final Result [facility] Department [place] [address] * (ABNORMAL) CBC with auto differential (11/22/2019 8:[address] CLERK) WBC 6.9 3.8 - 9.8 K/cumm [facility] Comment:Testing performed by : [facility], [address] [place] [phone] Hgb 14.9 13.8 - 17.2 g/dL [facility] Comment:Testing performed by : [facility], [address] [place] [phone] Hct 44.0 40.7 - 50.3 % [facility] Comment:Testing performed by : [facility], [address] [place] [phone] Plt 292 140 - 440 K/cumm [facility] Comment:Testing performed by : [address] [phone] MPV 7.4 6.8 - 10.4 fL [facility] Comment:Testing performed by : [address] [phone] RBC 4.52 4.50 - 5.70 M/cumm [facility] Comment:Testing performed by : [facility], [address] [place] [phone] MCV 97.2 80.0 - 97.6 fL [facility] Comment:Testing performed by : [facility], [address] [place] [phone] MCH 33.0 26.7 - 33.7 pg [facility] Comment:Testing performed by : [facility], [address] [place] [phone] MCHC 33.9 32.7 - 35.5 g/dL [facility] Comment:Testing performed by : [facility], [address] [place] [phone] RDW CV 14.9(H) 11.8 - 14.6 % [facility] Comment:Testing performed by : [facility], [address] [place] [phone] NRBC abs 0.00 0.00 - 0.01 K/cumm [facility] Comment:Testing performed by : [facility], [address] [place] [phone] Blood specimen (specimen) 11/22/2019 8:[address] CLERK 11/22/2019 8:[address] CLERK us Anita Gillespie MD LAB BLOOD ORDERABLES Final Result [facility] Department [place] [address] * (ABNORMAL) Comprehensive metabolic panel (11/22/2019 8:[address] CLERK) Sodium 142 135 - 145 mmol/L [facility] Potassium, pl 4.2 3.3 - 4.9 mmol/L [facility] Chloride 107 97 - 110 mmol/L [facility] CO2 29 22 - 32 mmol/L [facility] Anion gap 6 2 - 15 mmol/L [facility] BUN 9 8 - 25 mg/dL [facility] Creatinine 0.81 0.80 - 1.30 mg/dL [facility] Glucose 76 70 - 199 mg/dL [facility] Comment: Interpretive Data Fasting glucose [...] Calcium 8.8 8.5 - 10.3 mg/dL [facility] Bilirubin, total 0.5 0.1 - 1.2 mg/dL [facility] Protein, pl 6.0(L) 6.5 - 8.5 g/dL [facility] Albumin 4.0 3.5 - 5.0 g/dL [facility] Alk phos 457(H) 40 - 130 Units/L [facility] ALT 64(H) 7 - 55 Units/L [facility] AST 54(H) 10 - 50 Units/L [facility] Blood specimen (specimen) 11/22/2019 8:[address] CLERK 11/22/2019 8:[address] CLERK us Anita Gillespie MD LAB BLOOD ORDERABLES Final Result [facility] Department [place] [address] * (ABNORMAL) Lactate dehydrogenase (LD) (11/22/2019 8:[address] CLERK) Pathologist [facility] Lactate dehydrogenase (LDH) 256(H) 100 - 250 Units/L [facility] Blood specimen (specimen) 11/22/2019 8:[address] CLERK 11/22/2019 8:[address] CLERK us Anita Gillespie MD LAB BLOOD ORDERABLES Final Result [facility] Department [place] [address] * (ABNORMAL) Gamma GT (11/22/2019 8:[address] CLERK) GGT 295(H) 10 - 50 Units/L [facility] Blood specimen (specimen) 11/22/2019 8:[address] CLERK 11/22/2019 8:[address] CLERK Theodore Gresham MD LAB BLOOD ORDERABLES Final Result Performing Organization Address [facility] de Phone Number [facility] Department [place] [address] * Tacrolimus level trough (11/22/2019 8:[address] CLERK) Tacrolimus, trough 6.0 ng/mL [facility] Comment: Interpretive Data Testing performed [...] 2019. 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
--- OUTSIDE RECORDS SUMMARY | 2024-10-28 06:24 | XMS_ITS | Encounter Summary ---
Author Organization [facility] Address [address] [place] [address] Phone Care Team Providers Care Bridge Operator Name Role Phone Guero Colunga DO Primary Care Provider [phone] Amber Montesinos RN Unavailable [phone] Reason for Visit * Reason Onset Date Comments NEW appt with ID 12/20/2019 Encounter Details Date Type Department Care Team (Late st Contact Info) Description 12/20/2019 Telephone [facility] Infectious Diseases [address] [place] [address] Brooklynn Malcolm, RN NEW appt with ID Social History Tobacco Use Types Packs/Day Years Used Date Smoking Tobacco: Never Smokeless Tobacco: Never Sex and Gender Information Value Date Recorded Sex Assigned at Not on file Legal Sex Male 6:28 AM DRAFTER TOPOGRAPHICAL Gender Identity Not on file Sexual Orientation Straight 08/22/2021 9: 23 AM CDT documented as of this encounter Miscellaneous Notes * Telephone Encounter - Brooklynn Malcolm RN - 12/21/2019 4:00 PM CST We may cancel the ID appt. ID will see patient in the hospital. Tx, lbw TER TOPOGRAPHICAL * Telephone Encounter - Jacqueline Grande - 12/21/2019 2:35 PM CST Patient is currently in the hospital and they believe he will be admitted. Please advise. TER TOPOGRAPHICAL * Telephone Encounter - Hans Broderick - 12/21/2019 2:11 PM DRAFTER TOPOGRAPHICAL Jacqueline, Please see below TER TOPOGRAPHICAL * Telephone Encounter - Brooklynn Malcolm RN - 12/20/2019 3:39 PM CST From: Brooklynn Malcolm Sent: Friday, December 20, 2019 3:39 PM To: Jil Duncan <[email or web address]>; Amber Vargas <[email or web address]> Cc: Alex Lemus <[email or web address]> Subject: RE: Junior Ramirez have patient scheduled for Wednesday, 12/25 @ 0900. lbw From: Jil Duncan <[email or web address]> Sent: Friday, December 20, 2019 2:39 PM To: Amber Vargas <[email or web address]>; Brooklynn Malcolm <[email or web address]> Cc: Alex Lemus <[email or web address]> Subject: RE: Junior Clark, Thank you for reaching out. I am not sure if the spike in low level viremia is due to an intercurrent illness( URI/cold) or something to be worried about. Also I am not sure what is the cause for his elevated alk phosphatase and increasing adenopathy ( with negative biopsies) . It might be better if we can see him. Evaluationfor flu/RVP is a good idea. Brooklynn- could you get him in please ? I can see him on Wednesday AM. 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 The patient started this dose on 11/13/2019. The patient was due to finish his course of antibiotics on 12/04/2019. We have been checking weekly CMV PCR's and the IU/mL have been steadily increasing, despite treatment. I have counseled the patient on making sure he is not [...] his mother is also worried about bronchitis. Elielies saji bertrand at this time. I reviewed the patient's most recent labs with Dr. Lemus and he wanted me to reach out to you regarding the patient's treatment. I have ordered a CMV PCR resistance test (UL54 and UL97) from [facility] [place] and they said it should result by or Wednesday since it is a send out to [place]. We were hoping you may have some further recommendations for treatment of our patient. Please call me if you have any questions (I also sent an [place] [employer] message as I was not sure if you preferred one form of communication) [phone] Amber Vargas RN, BSN Liver Walking Dragline Operator [facility] Trans[facility] Address Mailstop: [phone] [address] Office: [phone] TER TOPOGRAPHICAL documented in this encounter Plan of Treatment Scheduled Procedures Name Priority Associated Diagnoses Date/Ti me COLONOSCOPY Encounter for screening for colorectal cancer in high risk patient Family history of rectal cancer documented as of this encounter Visit Diagnoses Not on filedocumented in this encounter Care Teams Bridge Operator Relationship Specialty Start Date End Date Guero Colunga DO PCP - General Internal Medicine 03/22/19 04/18/23 Amber Montesinos, RN Walking Dragline Operator Transplant 11/17/19 documented as of this encounter
--- OUTSIDE RECORDS SUMMARY | 2024-10-28 06:24 | XMS_ITS | Encounter Summary ---
Author Organization [facility] Healthcare Address [address] [place] [address] Care Team Providers Care Certified Pediatric Nurse Practitioner Name Role Phone Gene Colungae Primary Care Provider [phone] Amber Montesinos RN Unavailable [phone] Encounter Details Date Type Department Care Team (Late st Contact Info) Description 12/20/2019 Telephone [facility] Transplant Liver [address] [facility] [address] Mailstop [phone] [place] [address] Sharita Valdez Social History Tobacco Use Types Packs/Day Years Used Date Smoking Tobacco: Never Smokeless Tobacco: Never Sex and Gender Information Value Date Recorded Sex Assigned at Not on file Legal Sex Male 6:28 AM CLIENT DELIVERY MANAGER Gender Identity Not on file Sexual Orientation Straight 08/22/2021 9: 23 AM CDT documented as of this encounter Miscellaneous Notes * Telephone Encounter - Sharita Valdez - 12/20/2019 11:00 AM CST Patient's mother returned your call. She may be reached at [phone]. NT DELIVERY MANAGER documented in this encounter Plan of Treatment Scheduled Procedures Name Priority Associated Diagnoses Date/Ti me COLONOSCOPY Encounter for screening for colorectal cancer in high risk patient Family history of rectal cancer documented as of this encounter Visit Diagnoses Not on filedocumented in this encounter Care Teams Certified Pediatric Nurse Practitioner Relationship Specialty Start Date End Date Guero Colunga DO PCP - General Internal Medicine 03/22/19 04/18/23 Amber Montesinos, RN Dip Painter Transplant 11/17/19 documented as of this encounter
--- OUTSIDE RECORDS SUMMARY | 2024-10-28 06:25 | XMS_ITS | Encounter Summary ---
Author Organization [facility] Healthcare Address [address] [place] [address] Care Team Providers Care General Assembler Installer Name Role Phone Munira Rick RN Unavailable [phone] Guero Colunga DO Primary Care Provider [phone] Encounter Details Date Type Department Care Team (Late st Contact Info) Description 06/16/2019 Orders Only [facility] Transplant Liver [address] [facility] [address] Mailstop [phone] [place] [address] Tarik Perry History of liver transplant (CMS/HCC) (Primary Dx) Social History Tobacco Use Types Packs/Day Years Used Date Smoking Tobacco: Never Smokeless Tobacco: Never Sex and Gender Information Value Date Recorded Sex Assigned at Not on file Legal Sex Male 6:28 AM VP PRODUCT MARKETING Gender Identity Not on file [...] transplant documented in this encounter Care Teams General Assembler Installer Relationship Specialty Start Date End Date Guero Colunga DO [address] [facility] [address] [place] [address] PCP - General Internal Medicine 03/22/19 04/18/23 Munira Rick, RN [address] [place] [address] Research And Development Technician 04/01/18 documented as of this encounter
--- OUTSIDE RECORDS SUMMARY | 2024-10-28 06:25 | XMS_ITS | Encounter Summary ---
Author Organization [facility] Healthcare Address [address] [place] [address] Care Team Providers Care Director Reactor Projects Name Role Phone Kali Cruz MD Primary Care Provider [phone] Munira Rick RN Unavailable [phone] Encounter Details Date Type Department Care Team (Late st Contact Info) Description 02/21/2019 Telephone [facility] Transplant Liver [address] [facility] [address] Mailstop [phone] [place], [place] [phone] Munira Rick, RN [address] [facility] [address] [place], [place] [id number] Social History Tobacco Use Types Packs/Day Years Used Date Smoking Tobacco: Never Smokeless Tobacco: Never Sex and Gender Information Value Date Recorded Sex Assigned at Not on file Legal Sex Male 6:28 AM SPORTS AGENT Gender Identity Not on file Sexual Orientation Straight 08/22/2021 9: 23 AM CDT documented as of this encounter Miscellaneous Notes * Telephone Encounter - Munira Rick RN - 02/21/2019 4:50 PM CDT Reviewed with Dr. Gresham plan for Valcyte. 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 Per Dr. Najera- pt to remain on valcyte for now- he needs to continue valcyte if plan for chemo for re-treament of relapse lymphoma. documented in this encounter Plan of Treatment Scheduled Procedures Name Priority Associated Diagnoses Date/Ti me COLONOSCOPY Encounter for screening for colorectal cancer in high risk patient Family history of rectal cancer documented as of this encounter Visit Diagnoses Not on filedocumented in this encounter Care Teams Director Reactor Projects Relationship Specialty Start Date End Date Kali Cruz MD [address] [place] [address] PCP - General 04/09/17 03/21/19 Munira Rick, RN [address] [address] Choke Setter 04/01/18 documented as of this encounter
--- OUTSIDE RECORDS SUMMARY | 2024-10-28 06:25 | XMS_ITS | Encounter Summary ---
Author Organization [facility] Healthcare Address [address] [place] [address] Care Team Providers Care Retail Office Manager Name Role Phone Munira Rick RN Unavailable [phone] Guero Colunga DO Primary Care Provider [phone] Reason for Visit * Reason Comments Fever Cough Encounter Details Date Type Department Care Team (Latest Contact Info) Description 10/10/2019 2:14 PM ARCH CUSHION SKIVING 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 - 10/13/2019 3:14 PM ARCH CUSHION SKIVING 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 Hospital Encounter [address] [id number] Anita Gillespie MD [address] [facility] [address] [place] [address] Dehydration (Primary Dx); Pneumonia due to infectious organism, unspecified laterality, unspecified part of lung; PTLD (post-transplant lymphoproliferative disorder) ([facility]) Discharge Disposition: Discharge to home or self care Social History Tobacco Use Types Packs/Day Years Used Date Smoking Tobacco: Never Smokeless Tobacco: Never Sex and Gender Information Value Date Recorded Sex Assigned at Not on file Legal Sex Male 6:28 AM ARCH CUSHION SKIVING 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 Gender Identity Not on file Sexual Orientation Straight 08/22/2021 9: 23 AM CDT documented as of this encounter Last Filed Vital Signs Vital Sign Reading Time Taken Comments Blood Pressure 109/64 10/13/2019 2:20 PM ARCH CUSHION SKIVING 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 Pulse 74 10/13/2019 2:20 PM ARCH CUSHION SKIVING 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 Temperature 36.9 ??C (98.4 ??F) 10/13/2019 2:20 PM CS T Respiratory Rate 16 10/13/2019 2:20 PM ARCH CUSHION SKIVING 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 Oxygen Saturation 96% 10/13/2019 2:20 PM ARCH CUSHION SKIVING 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 Inhaled Oxygen Concentration - - Weight 54.4 kg (120 lb) 10/12/2019 8:50 PM ARCH CUSHION SKIVING 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 Height 172.7 cm (5' 8 ) 10/10/2019 8:16 PM ARCH CUSHION SKIVING 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 Body Mass Index 18.25 10/10/2019 8:16 PM ARCH CUSHION SKIVING 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 documented in this encounter Discharge Diagnoses Diagnosis Adenoviral pneumonia - ADENOVIRAL PNEUMONIA Pneumonia due to adenovirus Non-Hodgkin lymphoma, unspecified, unspecified site (HCC) - NON-HODGKIN LYMPHOMA, UNSPECIFIED, UNSPECIFIED SITE Post-transplant lymphoproliferative disorder (PTLD) (CODE) - POST-TRANSPLANT LYMPHOPROLIFERATIVE DISORDER (PTLD) Other complications of liver transplant (HCC) - OTHER COMPLICATIONS OF LIVER TRANSPLANT Surgical operation with transplant of whole organ as the cause of abnormal reaction of the patient, or of later complication, without mention of misadventure at the time of the procedure - SURGICAL OPERATION WITH TRANSPLANT OF WHOLE ORGAN THE CAUSE OF ABNORMAL REACTION OF THE PATIENT, Nosocomial condition - NOSOCOMIAL CONDITION Personal history of pulmonary embolism - PERSONAL HISTORY OF PULMONARY EMBOLISM Acquired absence of spleen - ACQUIRED ABSENCE OF SPLEEN Other acquired absence of organ documented in this encounter Discharge Summaries * Ant Bello MD - 10/12/2019 1:33 PM CST Inpatient Discharge Summary BRIEF OVERVIEW Admitting Provider: Anita Gillespie MD Discharge Provider: Anita Gillespie MD Primary Care Physician at Discharge: Guero Colunga DO [phone] Admission Date: 10/10/2019 Discharge Date: 10/13/2019 Admission Location: [facility] Primary Discharge Diagnosis: Viral Pneumonia due to adenovirus & parainfluenza Secondary Discharge Diagnosis: History of liver transplant (CMS/HCC) 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 Nichols is a 24 [address] patient of Dr[address] 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 He is admitted for further treatment of fevers and pneumonia. ?? He presented to [facility] with c/o cough, intermittent, over the past 3 weeks that is now productive of white/yellow sputum and worsened over the past few days. He denies any hemoptysis currently, but noted black clots a couple days ago. He also endorses night sweats and chills during this time. He states he had a temp of Tmax 102F and a sore throat yesterday. He endorses that he has also had swollen nodes BL neck for the past 3-4 weeks. He endorses mildly poor appetite accompanied by weight loss. Healso endorses nasal congestion. No complaints of Carey, dizziness, chest pain, sob, abd pain, n/v/d, LE edema, rashes. ?? Presented to [facility], has remained afebrile, HR 80's, BP in low range 80-90's systolic and 40-60's diastolic. He has been saturating well on RA. Labs significant for WBC 12.6 -> 13.7, RVP +adeno/parainfluenza, CXR with RML opacity possibly PNA. UA negative. Blood Cx pending. He was given 1L NS bolusx2 and cefepime 1g with transient BP improvement to 103/58. ?? In terms of his previous treatments, [id number] he was treated with R-CHOP x1, EPOCH-R x 5, and IT MTX x 1 for DELIVERY ROOM CLERK prophylaxis. He continues on tacrolimus 0.5mg bid.??Of note, patient has a 3-4 week history of lymphadenopathy and night sweats, and has a PET scan and Lymph node biopsy scheduled for 10/13/19 Hospital Course: Hospital??acquired pneumonia of right middle lobe of lung (CMS/HCC) Had productive cough with white/yellow sputum for several weeks with fevers, chills, night sweats. On admission WBC??13, Respiratory Viral Panel positive for adeno/parainfluenza. CXR finding of possible RML pneumonia.??Empirically started on Azithromycin, Cefepime, and Vancomycin for 2 days. Patient remained afebrile throughout admission and hemodynamically stable with unchanging, soft blood pressures (patient's baseline). Blood cultures and MRSA nasal swab showed no growth. Antibiotics were de-escalated to only Levofloxacin 750mg PO, patient completed 4 days. Upon discharge, patient felt more energetic, denied fevers, chills, SOB, chest pain, pleurisy, or hemoptysis. Only residual symptom was productive cough. ?? 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 Gillespie. Will continue to see as outpatient -PET 07/13/19: Interval increase in size of diffuse lymphadenopathy both above and below diaphragm, considerably worse than last scan on 01/23/19. Patient to follow up on results with Dr. Gillespie in clinic. -Consulted med onc, who had no new recommendations during admission. ?? Lymphadenopathy BL cervical LAD palpable on physical exam, worsening per patient ongoing for 3-4 weeks. -Case was discussed in [facility] with??Dr. Gillespie's team and performed lymph node biopsy on 07/14/19. Results to be followed up in with Dr. Gillespie as outpatient. ?? History of liver transplant (CMS/HCC) Follows with Dr. Gresham. Will continue to see as outpatient -Continued tacrolimus 0.5mg BID -Continued valcyte 450mg BID -Tacro trough 8.1 Active Issues Requiring Follow-up: Follow up on results of PET scan and lymph node biopsy Test Results Pending at Discharge: Order Current Status Blood culture Blood Peripheral Preliminary result Blood culture Blood Peripheral Preliminary result Operative Procedures Performed: Other Procedures: PET scan Lymph node biopsy Pertinent Test Results: See hospital course Discharge Details Physical Exam at Discharge: Discharge Condition: good Pulse: 69 Resp: 16 BP: 100/57 Temp: 36.9 ??C (98.4 ??F) Weight: 54.4 kg (120 lb) Pertinent Exam Findings at Discharge: Gen: NAD,??sitting up??in bed comfortably Eyes: EOMI, anicteric ENT: MMM, OP clear Neck: Supple without JVD CV: RRR without murmurs, rubs or gallops, no edema Pulm: Clear to Auscultation without wheezes or crackles with??diminished BS on RLL>L Abd: Soft, Non Tender, Non Distended, normal BS MSK: No joint pain, SAMARA Lymph: +BL palpable LAD neck, no palpable in axillary Skin: No visible rashes Neuro: No focal deficits, AAOX4, SAMARA Psych: normal mood and affect Discharge Disposition: Code Status at Discharge: Full Discharge Instructions: Follow up on the results of your PET scan and Lymph Node biopsy with your outpatient oncologist, Dr. Gillespie. Discharge Medications: Current Medications TAKE these medications tacrolimus 0.5 mg capsule Commonly known as: PROGRAF Take 1 capsule (0.5 mg total) by mouth 2 (two) times a day This medication is very important: It prevents organ rejection. valGANciclovir 450 mg tablet Commonly known as: VALCYTE Take 1 tablet (450 mg total) by mouth daily This medication is very important: It prevents dangerous infection. Outpatient Follow-Up: Future Appointments Date Time Provider Department Center 10/02/2020 8:00 AM [facility] Liver TXP [facility] Ant Bello MD Cosigned by Hernán Coffman MD at 10/13/2019 2:26 PM ARCH CUSHION SKIVING 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 CUSHION SKIVING 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 CUSHION SKIVING 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 CUSHION SKIVING 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 documented in this encounter Discharge Instructions * Discharge Instructions* Ant Bello MD - 10/13/2019 11:17 AM ARCH CUSHION SKIVING 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 Follow up on the results of your PET scan and Lymph Node biopsy with your outpatient oncologist, Dr. Gillespie. CUSHION SKIVING 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 documented in this encounter Medications at [...] total) by mouth daily 30 tablet 2 09/12/2019 11/07/2019 documented as of this encounter Ordered Prescriptions Prescription Sig Dispense Quantity Refills Last Filled Start Date End Date levoFLOXacin (LEVAQUIN) 750 mg tabletIndications: Pneumonia, Hospital Acquired Take 1 tablet (750 mg total) by mouth philosophy faculty before breakfast for 2 doses 2 tablet 10/13/2019 9 documented in this encounter Discharge Disposition Disposition Code Departure Means Destination Discharge to home or self care documented in this encounter Progress Notes * Kasia Gleason RN - 10/13/2019 1:34 PM CST 10/13/19 1300 Discharge Summary Chart reviewed For Medical Necessity Does patient have a planned readmission to hospital planned? No Discharge Disposition Home Equipment/Provider Needs No Home Needs Identified Discharge Additional Assistance Does the patient need discharge transport arranged? No Post Discharge Care Provider Post Discharge Care Plan Next level of care provider has access to complete EMR Patient stable for discharge from hospital. Discharge medications: per [facility] Follow-up care as scheduled CUSHION SKIVING 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 * Ant Bello MD - 10/13/2019 9:29 AM CST Daily Progress Note Division of Internal Medicine Name: Adi Nichols Today: October 13, 2019 : 1995 Age: 24 y.o. male Admit: 10/10/2019 Bed: [id number] Chief complaint: fever and cough Subjective Interval History: -NAEON. VSS with continued soft BP's. Remains afebrile. -BCx with no growth to date. -Received 4 doses Levofloxacin -Feels well, only complaint is ongoing productive cough of white/yellow sputum. -Denies fevers, chills, SOB, chest pain, or other symptoms. -Patient content with going home after LN bx today AM Objective Medications Scheduled: levoFLOXacin, 750 mg, oral, Daily - 0600 sodium chloride 0.9%, 0.5-20 mL, intra-catheter, Q8H PIPPA tacrolimus, 0.5 mg, oral, BID valGANciclovir, 450 mg, oral, Daily Infusions: sodium chloride 0.9%, 125 mL/hr, Last Rate: 125 mL/hr (10/13/19 0903) PRN: ??? acetaminophen ??? benzocaine-menthol ??? dextromethorphan-guaiFENesin ??? magnesium sulfate ??? magnesium sulfate ??? potassium chloride ??? potassium chloride ER ??? sodium chloride 0.9% Vital signs Temp Min: 36.6 ??C (97.9 ??F) Max: 36.9 ??C (98.4 ??F) Pulse Min: 63 Max: 83 BP Min: 87/50 Max: 113/58 Resp Min: 16 Max: 18 SpO2 Min: 94 % Max: 96 % Input/Output No intake or output data in the 24 hours ending 10/13/19 0930 Latest weight: 54.4 kg (120 lb) Physical exam: Gen: NAD, sitting up in bed comfortably Eyes: EOMI, anicteric ENT: MMM, OP clear Neck: Supple without JVD CV: RRR without murmurs, rubs or gallops, no edema Pulm: Clear to Auscultation without wheezes or crackles with diminished BS on RLL>L Abd: Soft, Non Tender, Non Distended, normal BS MSK: No joint pain, SAMARA Lymph: +BL palpable LAD neck, no palpable in axillary Skin: No visible rashes Neuro: No focal deficits, AAOX4, SAMARA Psych: normal mood and affect Lab/Diagnostic Review: Recent Results (from the past 24 hour(s)) CBC with auto differential Collection Time: 10/13/19 1:33 AM Result Value Ref Range WBC 9.2 3.8 - 9.9 K/cumm Hgb 14.8 13.0 - 17.5 g/dL Hct 43.5 38.9 - 50.3 % Plt 369 150 - 400 K/cumm MPV 9.5 9.1 - 12.3 fL RBC 4.59 4.30 - 5.80 M/cumm MCV 94.8 81.3 - 96.4 fL MCH 32.2 27.1 - 33.3 pg MCHC 34.0 32.3 - 35.7 g/dL RDW CV 14.8 11.1 - 14.9 % RDW SD 52.3 (H) 35.7 - 48.1 fL NRBC abs 0.00 0.00 - 0.01 K/cumm Basic metabolic panel Collection Time: 10/13/19 1:33 AM Result Value Ref Range Sodium 140 135 - 145 mmol/L Potassium, pl 4.4 3.3 - 4.9 mmol/L Chloride 108 97 - 110 mmol/L CO2 24 22 - 32 mmol/L Anion gap 8 2 - 15 mmol/L BUN 9 8 - 25 mg/dL Creatinine 0.70 (L) 0.80 - 1.30 mg/dL Glucose 95 70 - 199 mg/dL Calcium 8.4 (L) 8.5 - 10.3 mg/dL Differential, auto Collection Time: 10/13/19 1:33 AM Result Value Ref Range Neutrophil abs 3.2 1.7 - 6.5 K/cumm Imm gran abs 0.2 (H) 0.0 - 0.1 K/cumm Lymphocyte abs 3.2 0.8 - 3.3 K/cumm Monocyte abs 2.0 (H) 0.2 - 0.8 K/cumm Eosinophil abs 0.5 0.0 - 0.5 K/cumm Basophil abs 0.1 0.0 - 0.1 K/cumm Neutrophil pct 35.2 % Imm gran pct 2.2 % Lymphocyte pct 34.7 % Monocyte pct 22.0 % Eosinophil pct 5.2 % Basophil pct 0.7 % I have reviewed the laboratory results. Imaging Results: PET/CT FDG Skull to Thigh Narrative: EXAMINATION: TUMOR FDG-PET/CT IMAGING DATE OF STUDY: 10/12/2019 SCANNER: mCT RADIOPHARMACEUTICAL: 12.6 mCi F-18 Fluorodeoxyglucose (FDG) i.v. Injection site: Left wrist HISTORY: 24-year-old man with with posttransplant lymphoproliferative disorder after receiving orthotopic liver transplant 03/03/2009 for autoimmune hepatitis, who presents to hospital with fevers and pneumonia. He has a 3-4 week history of bilateral nontender cervical, periauricular and posterior auricular lymphadenopathy with associated night sweats and weight loss. The patient's prior PET/CT study dated 01/03/2019 demonstrated multiple new hypermetabolic nodes above and below the diaphragm, as well as diffusely increased marrow FDG uptake. Lymph node biopsy after that study demonstrated florid follicular hyperplasia with focally increased EBV-positive cells and marrow biopsy demonstrated no evidence of lymphoma. The patient has had no subsequent treatment for PTLD. This study is requested for detection of suspected recurrence, because of the new symptoms. Subsequent treatment strategy. TECHNIQUE: The patient's fasting blood glucose level, measured by glucometer before injection of FDG, was 78 mg/dL. MD-Gastroview was not given orally. After intravenous administration of FDG, noncontrast CT images were obtained for attenuation correction and for fusion with emission PET images to allow for anatomical localization of PET findings. Emission PET images were then obtained. The study was interpreted on the [employer] workstation. The mean liver SUV (reported for clinical quality assurance specialist purposes) is 2.0. The total scanned area was skull base to the proximal thighs. Images of the body were obtained starting 51 minutes after injection of tracer. COMPARISON: 01/03/2019 FINDINGS: There is FDG-avid bilateral cervical, supraclavicular, axillary, mediastinal, hilar, retroperitoneal, iliac, and inguinal lymphadenopathy, markedly increased as the prior examination. The most FDG-avid lesion is a left cervical lymph node with maximum SUV of 14.2. There is an FDG-avid peripheral opacity within the right upper lobe, new since the prior examination, with maximum SUV of 14.4. Additional, predominantly peripheral opacities within both lungs demonstrate mildly increased FDG uptake. These can be inflammatory/infectious in etiology, or alternatively, lymphomatous involvement. There has been interval resolution of a right lower lobe peripheral hypermetabolic opacity. Redemonstrated is diffusely increased increased bone marrow activity, greater than that of the liver. Additional CT findings: There is bilateral mucosal thickening within the maxillary and ethmoid sinuses. 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 Impression: 1. Interval increase in size and FDG avidity of diffuse lymphadenopathy above and below the diaphragm (considerably worse than on the prior study dated 01/03/2019), most consistent with disease progression. 2. Bilateral hypermetabolic pulmonary opacities, which can be infectious/inflammatory or represent lymphomatous involvement. 3. Assuming the diffuse lymphadenopathy represents lymphoma, 5PS=5 Dictated by: Sherin Gould M.D. :: The radiology attending physician has personally reviewed this study, and had reviewed and/or edited this written report and agrees with it. Electronically signed by: Jesús Mahan M.D. Assessment/Plan Hospital acquired pneumonia of right middle lobe of lung (CMS/HCC) Cough for several weeks with fevers, chills, night sweats. On admission WBC 13.7, RVP +adeno/parainfluenza.?CXR finding of possible RML pneumonia. Afebrile here now and HD stable with softer Bps (patient's baseline).? -s/p 1L NS x3 given softer BP's, no response (likely patient's baseline). -Received 4 days of Levofloxacin 750 mg PO qD. Stop today. -robitussin for cough prn -throat lozenge prn for sore throat -apap 500 q6h prn for fevers -Blood cultures x2 with no growth to date -MRSA nasal swab negative ?? 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 Gillespie. -PET 07/13/19: Interval increase in size of diffuse lymphadenopathy both above and below diaphragm, considerably worse than last scan on 01/23/19. -LN biopsy??today. -Consulted med onc -D/C home today after LN bx ?? Lymphadenopathy BL cervical LAD palpable on physical exam, worsening per patient ongoing for 3-4 weeks. -Case was discussed in [facility] with??Dr. Gillespie's team and plan for??PET scan and lymph node biopsy while admitted with no steroids while inpatient.? History of liver transplant (CMS/HCC) Follows with Dr. Gresham -c/w tacro 0.5mg BID -c/w valcyte 450mg BID -Tacro trough 8.1 Ant Bello MD PGY-9 10/13/19 9:30 AM Cosigned by Hernán Coffman MD at 10/13/2019 2:25 PM ARCH CUSHION SKIVING 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 CUSHION SKIVING 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 CUSHION SKIVING 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 Associated attestation - Hernán Coffman MD - 10/13/2019 2:25 PM ARCH CUSHION SKIVING 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 ATTENDING DOCUMENTATION I have seen and examined the patient on 10/13/2019. I agree with the findings and plan of care as documented in the resident's/fellow's note * Ant Bello MD - 10/12/2019 10:15 AM CST Daily Progress Note Division of Internal Medicine Name: Adi Nichols Today: October 12, 2019 : 1995 Age: 24 y.o. male Admit: 10/10/2019 Bed: [id number] Chief complaint: fever and cough Subjective Interval History: -NAEON. VSS with continued soft BP's. Remains afebrile. -BCx with no growth to date. -On azithro, vanc, and cefe -Feels well, only complaint is ongoing productive cough of white/yellow sputum. -Denies fevers, chills, SOB, chest pain, or other symptoms. -Patient content with going home after PET and LN bx Objective Medications Scheduled: levoFLOXacin, 750 mg, oral, Daily - 0600 sodium chloride 0.9%, 0.5-20 mL, intra-catheter, Q8H PIPPA tacrolimus, 0.5 mg, oral, BID valGANciclovir, 450 mg, oral, Daily Infusions: PRN: ??? acetaminophen ??? benzocaine-menthol ??? dextromethorphan-guaiFENesin ??? magnesium sulfate ??? magnesium sulfate ??? potassium chloride ??? potassium chloride ER ??? sodium chloride 0.9% Vital signs Temp Min: 36.9 ??C (98.4 ??F) Max: 37.2 ??C (99 ??F) Pulse Min: 72 Max: 80 BP Min: 95/49 Max: 104/54 Resp Min: 16 Max: 16 SpO2 Min: 96 % Max: 97 % Input/Output Intake/Output Summary (Last 24 hours) at 10/12/2019 1016 Last data filed at 10/12/2019 0545 Gross per 24 hour Intake 1819 ml Output 1125 ml Net 694 ml Latest weight: 56.2 kg (124 lb) Physical exam: Gen: NAD, sitting up in bed comfortably Eyes: EOMI, anicteric ENT: MMM, OP clear Neck: Supple without JVD CV: RRR without murmurs, rubs or gallops, no edema Pulm: Clear to Auscultation without wheezes or crackles with diminished BS on RLL>L Abd: Soft, Non Tender, Non Distended, normal BS MSK: No joint pain, SAMARA Lymph: +BL palpable LAD neck, no palpable in axillary Skin: No visible rashes Neuro: No focal deficits, AAOX4, SAMARA Psych: normal mood and affect Lab/Diagnostic Review: No results found for this or any previous visit (from the past 24 hour(s)). I have reviewed the laboratory results. Imaging Results: XR Chest Pa Lateral 2 Views Narrative: EXAMINATION: 2 view chest radiograph Impression: Comparison is made to chest radiograph dated 03/20/2019 at 10:17 AM. Multiple surgical clips project over the right upper quadrant, the left upper quadrant, and the right side of the neck. The heart and mediastinal contours are normal. There is unchanged hilar lymphadenopathy and probable mediastinal lymphadenopathy. There is a new focal opacity overlying the lateral right midlung that may represent pneumonia. No pneumothorax. Dictated by: Chaz Dodd M.D. The radiology attending physician has personally reviewed this study, and had reviewed and/or edited this written report and agrees with it. Electronically signed by: Magdi Knutson M.D. Assessment/Plan Respiratory Hospital acquired pneumonia of right middle lobe of lung (CMS/HCC) Cough for several weeks with fevers, chills, night sweats. On admission WBC 13.7, RVP +adeno/parainfluenza.?CXR finding of possible RML pneumonia. Afebrile here now and HD stable with softer Bps (patient's baseline).? -s/p 1L NS x3 given softer Bps and poor po intake. -D/C'd: Azithromycin, Cefepime, and Vancomycin -Started on Levofloxacin 750 mg PO qD for total of 5 doses (today is day 3). -robitussin for cough prn -throat lozenge prn for sore throat -apap 500 q6h prn for fevers -Blood cultures x2 with no growth to date -MRSA nasal swab negative ?? 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 Gillespie. -PET and LN biopsy??today. -Consulted med onc -D/C home today after PET + LN bx ?? Immune Lymphadenopathy BL cervical LAD palpable on physical exam, worsening per patient ongoing for 3-4 weeks. -Case was discussed in [facility] with??Dr. Gillespie's team and plan for??PET scan and lymph node biopsy while admitted with no steroids while inpatient.? Other History of liver transplant (CMS/HCC) Follows with Dr. Gresham -c/w tacro 0.5mg BID -c/w valcyte 450mg BID -Tacro trough 8.1 Ant Bello MD PGY-0 10/12/19 10:16 AM Cosigned by Hernán Coffman MD at 10/12/2019 2:50 PM ARCH CUSHION SKIVING 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 CUSHION SKIVING 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 CUSHION SKIVING 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 CUSHION SKIVING 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 Associated attestation - Hernán Coffman MD - 10/12/2019 2:50 PM ARCH CUSHION SKIVING 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 ATTENDING DOCUMENTATION I have seen and examined the patient on 10/12/2019. I agree with the findings and plan of care as documented in the resident's/fellow's note * Kasia Gleason RN - 10/11/2019 10:43 AM CST 10/11/19 0915 Information Information Obtained From Patient Referral Data Referral Reason Discharge Planning Prior to Admission Primary Caregiver Self Support System Parent Support system contact info (name, phone, availablity) mother [place] [phone] Home Care Services No Durable Medical Equipment None Living Arrangements Parent Type of Residence Private residence Steps in home? Yes, Outside of home Number of steps outside: 2 steps Financial Resource Payor Source Commercial Potential Discharge Needs Anticipated discharge level of care Private residence Pt/Family agrees with Anticipated Level of Care Yes Patient expects to be discharged to: Private residence Chart reviewed for medical necessity. Patient admitted for treatment of: fever and cough Insurance verified as: C (pt thinks he has [facility], but does not have the card) Prescription Coverage: yes Preferred Pharmacy: [facility] PCP verified as: Dr. Cristine Transportation: per mother Admission Source: clinic referral Additional Information/Options Discussed: Verified demographic information from the face sheet withthe patient. Explained role and purpose of manager rn case. Denies the use of home health in the past - a list will be offered if recommended. Patient demonstrates no agency preference at this time. health plan manager to continue to follow for planning and [...] a safe discharge plan with family support. 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 male with chief complaint of fever and cough. HPI: Mr. Nichols is a 24 [address] of [address] 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 In [id number] he was treated with R-CHOP x1, EPOCH-R x 5, and IT MTX x 1 for DELIVERY ROOM CLERK prophylaxis. He continues on tacrolimus 0.5mg bid. Of note, patient has a 3-4 week history of lymphadenopathy and night sweats, and has a PET scan and Lymph node biopsy scheduled for 10/13/19. Today Mr. Nichols presents to the [facility] with report of a 2-3 week history of productive cough that has worsened over the past several days. He has also noted night sweats followed by chills. He woke thismorning feeling especially bad, he went to work, but had to leave early due to fever (t-max 102.0).He had a bit of a sore throat yesterday that has largely resolved. He reports that he has had swollen nodes on both sides of his neck for the past 3-4 weeks, and has noted them both getting bigger throughout this time. He has had a poor appetite and noted a 3-4 pound weight loss. He denies shortness of breath, chest pain, nausea, vomiting, diarrhea, or dysuria. Oncology History PMH: 1. Liver transpant x 2 for acute liver failure (autoimmune hepatitis), 1998 2. 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 BMBx --> none EBV+ cells otherwise normal, 04/07/17 04/28/2017 - 05/02/2017 Hospital Admission Admit fevers/neutropenia, thrombocytopenia (4k) --> IVIG x 2 (plts 4k --> 230k), steroids, neupogen 05/03/2017 Initial Diagnosis PTLD (GCB). 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 R cervical LNBx --> PTLD ( early ), FISH --> c-myc+ (90%), IGH+, CD20+, CD10+, Bcl-6+, c-myc+ (90%), JAKOB+, Ki-67 95%, FISH-, Bcl-2-, Bcl-6-. Stage at diagnosis: IV A. Initial sites of disease: cervical, axill, mesenteric, RP LAD, lungs, bowel. IPI: 3 (stage, # EN sites, LDH) 08/03/2017 Biopsy R cervical LNBx --> JAKOB+ PTLD ( monomorphic ), c-myc+ by FISH 08/19/2017 Imaging Significant Findings PET/CT --> diffuse LAD with R cervical (SUV 41.7), bilat ax, RP, pulm nodules, bowel 08/25/2017 - 12/08/2017 Chemotherapy R-CHOP x 1, EPOCH-R x 5 --> OR after C2 (5PS 4), CR p C6 (uptake in small bowel SUV 15) 10/06/2017 - Chemotherapy IT MTX x 1 --> D/c due to severe CAREY and evidence intracranial hypotention 10/19/2017 - 10/21/2017 Hospital Admission Admit: PE, spinal headache --> dc'd on Lovenox 11/28/2017 - 12/05/2017 Hospital Admission Admit: neutropenic fever, sepsis, rhinovirus 12/17/2017 - 12/21/2017 Hospital Admission Admit: neutropenic fever, rhinovirus 12/09/2018 Biopsy R cervical LNBx --> florid follicular hyperplasia, JAKOB --> focally+ 03/22/2019 Remission Spontaneous regression Past Medical History: Diagnosis Date ??? CMV [...] BIOPSY LYMPH NODE SUPERFICIAL N/A 05/22/2014 ??? SPLENECTOMY ??? US ABDOMEN COMPLETE W LIVER DUPLEX (C) Right 10/18/2018 ??? US GUIDED BIOPSY LIVER N/A 10/18/2018 Medications Prior to Admission Medication Sig Dispense Refill Last Dose ??? tacrolimus (PROGRAF) 0.5 mg capsule Take 1 capsule (0.5 mg total) by mouth 2 (two) times a day 180 capsule 3 Taking ??? tacrolimus (PROGRAF) 0.5 mg capsule 0.5 mg 2 (two) times a day Taking ??? valGANciclovir (VALCYTE) 450 mg tablet Take 1 tablet (450 mg total) by mouth daily 30 tablet 2 Taking No Known Allergies Social History Tobacco Use ??? Smoking status: Never Smoker ??? Smokeless tobacco: Never Used Substance Use Topics ??? Alcohol use: Not on file Comment: occassional Family History Problem Relation Age of Onset ??? Rectal cancer Mother Rectal cancer - (Added by TW Conv) ??? Diabetes type II Sister Family history of type 2 diabetes mellitus - (Added by TW Conv) ??? Anesthesia problems Other Review of Systems Review of Systems Constitutional: Positive for chills, fatigue and fever. HENT: Positive for congestion, rhinorrhea and sore throat. swollen nodes Respiratory: Positive for cough. Cardiovascular: Negative. Gastrointestinal: Negative. Genitourinary: Negative. Musculoskeletal: Negative. Skin: Negative. Neurological: Negative. Psychiatric/Behavioral: Negative. Objective Vitals: Arrival Vitals [10/10/19 1415] Temp 37 ??C (98.6 ??F) Pulse 89 Resp 18 BP 98/61 SpO2 97 % Temp src Oral Heart Rate Source Monitor Patient Position Sitting BP Location FiO2 (%) 24hr Min/Max: Temp Min: 37 ??C (98.6 ??F) Max: 37 ??C (98.6 ??F) Pulse Min: 89 Max: 89 BP Min: 98/61 Max: 98/61 Resp Min: 18 Max: 18 SpO2 Min: 97 % Max: 97 % Most Recent : Vitals: 10/10/19 1753 BP: 97/55 Pulse: 80 Resp: 18 Temp: 37 ??C (98.6 ??F) SpO2: 97% Physical exam: Physical Exam Constitutional: He is oriented to person, place, and time. Ill-appearing male presents ambulatory and in no acute distress. HENT: Head: Normocephalic and atraumatic. Mouth/Throat: Oropharynx is clear and moist. Eyes: Pupils are equal, round, and reactive to light. Conjunctivae are normal. Neck: Large, firm superior anterior cervical lymph node. Left cervical lymphadenopathy noted. Cardiovascular: Normal rate, regular rhythm and normal heart sounds. Pulmonary/Chest: Effort normal and breath sounds normal. Abdominal: Soft. Bowel sounds are normal. Musculoskeletal: Normal range of motion. Lymphadenopathy: He has cervical adenopathy. Neurological: He is alert and oriented to person, place, and time. Gait normal. Skin: Skin is warm and dry. Psychiatric: Mood, memory, affect and judgment normal. Lab/Radiology/Diagnostic Review: Laboratory review: Lab results in the last 12 hours: Recent Results (from the past 12 hour(s)) CBC with auto differential Collection Time: 10/10/19 2:41 PM Result Value Ref Range WBC 12.6 (H) 3.8 - 9.9 K/cumm Hgb 13.9 13.0 - 17.5 g/dL Hct 40.4 38.9 - 50.3 % Plt 296 150 - 400 K/cumm MPV 10.0 9.1 - 12.3 fL RBC 4.35 4.30 - 5.80 M/cumm MCV 92.9 81.3 - 96.4 fL MCH 32.0 27.1 - 33.3 pg MCHC 34.4 32.3 - 35.7 g/dL RDW CV 14.8 11.1 - 14.9 % RDW SD 51.0 (H) 35.7 - 48.1 fL NRBC abs 0.00 0.00 - 0.01 K/cumm Comprehensive metabolic panel Collection Time: 10/10/19 2:41 PM Result Value Ref Range Sodium 137 135 - 145 mmol/L Potassium, pl 4.2 3.3 - 4.9 mmol/L Chloride 101 97 - 110 mmol/L CO2 24 22 - 32 mmol/L Anion gap 12 2 - 15 mmol/L BUN 9 8 - 25 mg/dL Creatinine 0.81 0.80 - 1.30 mg/dL Glucose 90 70 - 199 mg/dL Calcium 9.1 8.5 - 10.3 mg/dL Bilirubin, total 0.8 0.1 - 1.2 mg/dL Protein, pl 6.2 (L) 6.5 - 8.5 g/dL Albumin 3.6 3.5 - 5.0 g/dL Alk phos 383 (H) 40 - 130 Units/L ALT 51 7 - 55 Units/L AST 61 (H) 10 - 50 Units/L Lactate Collection Time: 10/10/19 2:41 PM Result Value Ref Range Lactate 1.5 0.7 - 2.0 mmol/L Magnesium Collection Time: 10/10/19 2:41 PM Result Value Ref Range Magnesium 1.4 1.4 - 2.5 mg/dL Phosphorus Collection Time: 10/10/19 2:41 PM Result Value Ref Range Phosphorus, pl 3.2 2.3 - 4.5 mg/dL Respiratory pathogen PCR Nasopharyngeal Collection Time: 10/10/19 2:41 PM Result Value Ref Range Adenovirus DNA Detected (A) Not Detected Coronavirus 229E RNA Not Detected Not Detected Coronavirus HKU1 RNA Not Detected Not Detected Coronavirus NL63 RNA Not Detected Not Detected Coronavirus OC43 RNA Not Detected Not Detected Metapneumovirus RNA Not Detected Not Detected Rhinovirus/Enterovirus RNA Not Detected Not Detected Influenza A RNA Not Detected Not Detected Influenza B RNA Not Detected Not Detected Parainfluenza Virus 1 RNA Not Detected Not Detected Parainfluenza Virus 2 RNA Not Detected Not Detected Parainfluenza Virus 3 RNA Not Detected Not Detected Parainfluenza Virus 4 Detected (A) Not Detected RSV RNA Not Detected Not Detected Bordetella pertussis DNA Not Detected Not Detected Chlamydophila pneumoniae DNA Not Detected Not Detected Mycoplasma pneumoniae DNA Not Detected Not Detected Bordetella parapertussis DNA Not Detected Not Detected Type and screen Collection Time: 10/10/19 2:41 PM Result Value Ref Range Carol, indirect Negative ABO Rh A Positive aPTT Collection Time: 10/10/19 2:41 PM Result Value Ref Range aPTT 30 25 - 37 sec Differential, auto Collection Time: 10/10/19 2:41 PM Result Value Ref Range Neutrophil abs 6.0 1.7 - 6.5 K/cumm Imm gran abs 0.6 (H) 0.0 - 0.1 K/cumm Lymphocyte abs 2.8 0.8 - 3.3 K/cumm Monocyte abs 3.0 (H) 0.2 - 0.8 K/cumm Eosinophil abs 0.1 0.0 - 0.5 K/cumm Basophil abs 0.1 0.0 - 0.1 K/cumm Neutrophil pct 47.7 % Imm gran pct 4.6 % Lymphocyte pct 22.4 % Monocyte pct 23.6 % Eosinophil pct 0.7 % Basophil pct 1.0 % Protime-INR Collection Time: 10/10/19 2:41 PM Result Value Ref Range PT 12.7 8.6 - 13.0 sec INR 1.2 0.8 - 1.2 Urinalysis with reflex for neutropenic patient Urine, clean voided Collection Time: 10/10/19 4:48 PM Result Value Ref Range Color, ur Yellow Yellow Clarity, ur Clear Clear Specific gravity, ur 1.005 (L) 1.010 - 1.025 pH, urine 7 Protein, ur ql Negative Negative Glucose, ur ql Negative Negative Ketones, ur Negative Negative Bilirubin, ur Negative Negative Blood, ur Negative Negative Urobilinogen, ur <2.0 <2.0 mg/dL Nitrite, ur Negative Negative Leukocyte esterase, ur Negative Negative @GETLABS(1D])@ XR Chest Pa Lateral 2 Views Narrative: EXAMINATION: 2 view chest radiograph Impression: Comparison is made to chest radiograph dated 03/20/2019 at 10:17 AM. Multiple surgical clips project over the right upper quadrant, the left upper quadrant, and the right side of the neck. The heart and mediastinal contours are normal. There is unchanged hilar lymphadenopathy and probable mediastinal lymphadenopathy. There is a new focal opacity overlying the lateral right midlung that may represent pneumonia. No pneumothorax. Dictated by: Chaz Dodd M.D. The radiology attending physician has personally reviewed this study, and had reviewed and/or edited this written report and agrees with it. Electronically signed by: Magdi Knutson M.D. Assessment and plan: 1) Fever: with associated worsening productive cough. Concern for viral vs bacterial infection. -Labs: wbc count 12.6, alk phos 283; remaining labs largely normal and noted above. -CXR: concerning for pneumonia -UA: negative -CARTOGRAPHY TECHNICIAN swab: positive for adenovirus and parainfluenza -Blood cultures: pending -NS 1L IV over 2 hours then 125/hr 2) Pneumonia: -Cefepime 1gm IV 3) Lymphadenopathy: concern for disease relapse; patient scheduled for PET and lymph node biopsy on10/13. Physician discussion: Patient presented for infectious work-up. WBC count 12, CXR concerning for pneumonia, CARTOGRAPHY TECHNICIAN swab positive for adenovirus and parainfluenza, UA negative. Blood cultures are pending. Patient treated with IVF's and Cefepime in clinic. Discussed case with Dr. Gillespie's team and patient will be admitted for further treatment. She would like the patient to have a PET scan and lymph node biopsy while admitted, and wants to ensure that patient does not receive any steroids prior to biopsy. Verbal report given to Aditi medrano. CUSHION SKIVING 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 documented in this encounter H&P Notes * Ant Bello MD - 10/11/2019 8:48 AM CST Oncology Medicine History & Physical Chief Complaint: Patient is a 24 y.o. male with chief complaint of fever and cough. Subjective HPI: Mr. Nichols is a 24 [address] of Dr. 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 He is admittedfor further treatment of fevers and pneumonia. He presented to [facility] with c/o cough, intermittent, over the past 3 weeks that is now productive of white/yellow sputum and worsened over the past few days. He denies any hemoptysis currently, but noted black clots a couple days ago. He also endorses night sweats and chills during this time. He states he had a temp of Tmax 102F and a sore throat yesterday. He endorses that he has also had swollen nodes BL neck for the past 3-4 weeks. He endorses mildly poor appetite accompanied by weight loss. Healso endorses nasal congestion. No complaints of Carey, dizziness, chest pain, sob, abd pain, n/v/d, LE edema, rashes. Presented to [facility], has remained afebrile, HR 80's, BP in low range 80-90's systolic and 40-60's diastolic. He has been saturating well on RA. Labs significant for WBC 12.6 -> 13.7, RVP +adeno/parainfluenza, CXR with RML opacity possibly PNA. UA negative. Blood Cx pending. He was given 1L NS bolusx2 and cefepime 1g with transient BP improvement to 103/58. In terms of his previous treatments, [id number] he was treated with R-CHOP x1, EPOCH-R x 5, and IT MTX x 1 for DELIVERY ROOM CLERK prophylaxis. He continues on tacrolimus 0.5mg bid. Of note, patient has a 3-4 week history of lymphadenopathy and night sweats, and has a PET scan and Lymph node biopsy scheduled for 10/13/19. Cancer Staging No matching staging information was found for the patient. Oncology History PMH: 1. Liver transpant x 2 for acute liver failure (autoimmune hepatitis), 1998 2. 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 BMBx --> none EBV+ cells otherwise normal, 04/07/17 04/28/2017 - 05/02/2017 Hospital Admission Admit fevers/neutropenia, thrombocytopenia (4k) --> IVIG x 2 (plts 4k --> 230k), steroids, neupogen 05/03/2017 Initial Diagnosis PTLD (GCB). 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 R cervical LNBx --> PTLD ( early ), FISH --> c-myc+ (90%), IGH+, CD20+, CD10+, Bcl-6+, c-myc+ (90%), JAKOB+, Ki-67 95%, FISH-, Bcl-2-, Bcl-6-. Stage at diagnosis: IV A. Initial sites of disease: cervical, axill, mesenteric, RP LAD, lungs, bowel. IPI: 3 (stage, # EN sites, LDH) 08/03/2017 Biopsy R cervical LNBx --> JAKOB+ PTLD ( monomorphic ), c-myc+ by FISH 08/19/2017 Imaging Significant Findings PET/CT --> diffuse LAD with R cervical (SUV 41.7), bilat ax, RP, pulm nodules, bowel 08/25/2017 - 12/08/2017 Chemotherapy R-CHOP x 1, EPOCH-R x 5 --> OR after C2 (5PS 4), CR p C6 (uptake in small bowel SUV 15) 10/06/2017 - Chemotherapy IT MTX x 1 --> D/c due to severe CAREY and evidence intracranial hypotention 10/19/2017 - 10/21/2017 Hospital Admission Admit: PE, spinal headache --> dc'd on Lovenox 11/28/2017 - 12/05/2017 Hospital Admission Admit: neutropenic fever, sepsis, rhinovirus 12/17/2017 - 12/21/2017 Hospital Admission Admit: neutropenic fever, rhinovirus 12/09/2018 Biopsy R cervical LNBx --> florid follicular hyperplasia, JAKOB --> focally+ 03/22/2019 Remission Spontaneous regression Active Treatment & Therapy Plans for Adi Nichols Justin J does not have any [...] BIOPSY LYMPH NODE SUPERFICIAL N/A 05/22/2014 ??? SPLENECTOMY ??? US ABDOMEN COMPLETE W LIVER DUPLEX (C) Right 10/18/2018 ??? US GUIDED BIOPSY LIVER N/A 10/18/2018 No Known Allergies Medications Prior to Admission Medication Sig Dispense Refill Last Dose ??? tacrolimus (PROGRAF) 0.5 mg capsule Take 1 capsule (0.5 mg total) by mouth 2 (two) times a day 180 capsule 3 Taking ??? tacrolimus (PROGRAF) 0.5 mg capsule 0.5 mg 2 (two) times a day Taking ??? valGANciclovir (VALCYTE) 450 mg tablet Take 1 tablet (450 mg total) by mouth daily 30 tablet 2 Taking Current Facility-Administered Medications: ??? acetaminophen (TYLENOL) tablet 500 mg, 500 mg, oral, Q6H PRN, Sunil Linares MD ??? benzocaine-menthol (CHLORASEPTIC) lozenge 1 lozenge, 1 lozenge, mouth/throat, Q4H PRN, Sunil Linares MD ??? cefepime (MAXIPIME) 2,000 mg/20 mL in sterile water (premix) 2,000 mg, 2,000 mg, intravenous, Q8H PIPPA, Ant Bello MD ??? dextromethorphan-guaiFENesin (ROBITUSSIN-DM) 2-20 mg/mL syrup 10 mL, 10 mL, oral, QID PRN, Sunil Linares MD ??? magnesium sulfate 4 g/100 mL in water (premix) 4 g, 4 g, intravenous, Q4H PRN, Hernán Coffman MD ??? magnesium sulfate 6 g in sodium chloride 0.9% 250 mL IVPB, 6 g, intravenous, Q4H PRN, Hernán Coffman MD ??? potassium chloride 40 mEq/520 mL in sodium chloride 0.9% (premix) 40 mEq, 40 mEq, intravenous, Q4H PRN, Hernán Coffman MD ??? potassium chloride ER (KLOR-CON) extended release tablet 40 mEq, 40 mEq, oral, Q4H PRN, Hernán Coffman MD ??? sodium chloride 0.9% bolus 1,000 mL, 1,000 mL, intravenous, Once, Ant Bello MD, Last Rate: 500 mL/hr at 10/11/19 0821, 1,000 mL at 10/11/19 0821 ??? sodium chloride 0.9% flush 0.5-20 mL, 0.5-20 mL, intra-catheter, Q8H PIPPA, Sunil Linares MD, 10 mL at 10/11/19 0627 ??? sodium chloride 0.9% flush 0.5-20 mL, 0.5-20 mL, intra-catheter, PRN, Sunil Linares MD ??? tacrolimus (PROGRAF) capsule 0.5 mg, 0.5 mg, oral, BID, Sunil Linares MD, 0.5 mg at 10/11/19 0824 ??? valGANciclovir (VALCYTE) tablet 450 mg, 450 mg, oral, Daily, Sunil Linares MD, 450 mg at 10/10/19 2201 ??? vancomycin 1,000 mg/200 mL in dextrose 5% (premix) 1,000 mg, 1,000 mg, intravenous, Q12H, Ant Bello MD Family History Problem Relation Age of Onset ??? Rectal cancer Mother Rectal cancer - (Added by TW Conv) ??? Diabetes type II Sister Family history of type 2 diabetes mellitus - (Added by TW Conv) ??? Anesthesia problems Other Social History Tobacco Use ??? Smoking status: Never Smoker ??? Smokeless tobacco: Never Used Substance Use Topics ??? Alcohol use: Not on file Comment: occassional Review of Systems: Review of systems per HPI and otherwise all other systems are negative Objective Vitals: Arrival Vitals [10/10/19 1415] Temp 37 ??C (98.6 ??F) Pulse 89 Resp 18 BP 98/61 SpO2 97 % Temp src Oral Heart Rate Source Monitor Patient Position Sitting BP Location FiO2 (%) 24hr Min/Max: Temp Min: 36.7 ??C (98.1 ??F) Max: 37.6 ??C (99.7 ??F) Pulse Min: 79 Max: 91 BP Min: 85/54 Max: 103/58 Resp Min: 18 Max: 20 SpO2 Min: 94 % Max: 97 % Most Recent : Vitals: 10/11/19 0815 BP: (!) 85/54 BP Location: Right arm Patient Position: Lying Pulse: 85 Resp: 20 Temp: 37 ??C (98.6 ??F) TempSrc: Oral SpO2: 94% Weight: I/O last 2 completed shifts: In: 1010 [IV Piggyback:1010] Out: 650 [Urine:650] Physical Exam: Gen: NAD, sitting up in bed comfortably Eyes: EOMI, anicteric, possibly injected conjunctiva ENT: MMM, OP clear Neck: Supple without JVD CV: RRR without murmurs, rubs or gallops, no edema Pulm: Clear to Auscultation without wheezes or crackles with diminished BS on RLL>L Abd: Soft, Non Tender, Non Distended, normal BS MSK: No joint pain, SAMARA Lymph: +BL palpable LAD neck, no palpable in axillary Skin: No visible rashes Neuro: No focal deficits, AAOX4, SAMARA Psych: normal mood and affect Lab/Radiology/Diagnostic Review: Labs and imaging results reviewed. CBC: Recent Labs Lab Units 10/11/19 0458 WBC K/cumm 13.7* HEMOGLOBIN g/dL 13.7 HEMATOCRIT % 39.4 MCV fL 94.0 PLATELETS K/cumm 291 NEUTROS ABS K/cumm 5.7 CMP: Recent Labs Lab Units 10/11/19 0458 SODIUM mmol/L 140 POTASSIUM PLASMA mmol/L 4.7 CO2 mmol/L 22 BUN SERUM mg/dL 6* GLUCOSE mg/dL 88 CREATININE mg/dL 0.72* CALCIUM mg/dL 8.6 CHLORIDE mmol/L 109 ALBUMIN g/dL 3.0* AST Units/L 43 ALT Units/L 37 ALK PHOS Units/L 315* BILIRUBIN TOTAL mg/dL 0.7 TOTAL PROTEIN g/dL 5.4* ANIONGAP mmol/L 9 PT: Recent Labs Lab Units 10/10/19 1441 PROTIME (PT) sec 12.7 PTT: Recent Labs Lab Units 10/10/19 1441 APTT sec 30 Radiology: CXR 2v 10/10: Comparison is made to chest radiograph dated 03/20/2019 at 10:17 AM. Multiple surgical clips project over the right upper quadrant, the left upper quadrant, and the right side of the neck. The heart and mediastinal contours are normal. There is unchanged hilar lymphadenopathy and probable mediastinal lymphadenopathy. There is a new focal opacity overlying the lateral right midlung that may represent pneumonia. No pneumothorax. Assessment/Plan [facility] acquired pneumonia of right middle lobe of lung (CMS/HCC) Cough for several weeks with fevers, chills, night sweats. Now with WBC 13.7, RVP +adeno/parainfluenza. CXR finding of possible RML pneumonia. Afebrile here now and HD stable with softer Bps. ?? -s/p 1L NS x2 given softer Bps and poor po intake. Administer another 1L NS over 2 hours. -Azithromycin 500mg IV q24h for 3 total doses, Cefepime 2g q8h, Vancomycin 1g q12h -Vanc trough prior to 4th dose. -robitussin for cough prn -throat lozenge prn for sore throat -apap 500 q6h prn for fevers -f/u blood cultures x2 ?? 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 Gillespie. -plan for PET while inpatient and LN biopsy -Consult med onc ?? Immune Lymphadenopathy BL cervical LAD palpable on physical exam, worsening per patient ongoing for 3-4 weeks. -Case was discussed in [facility] with Dr. Gillespie's team and plan for PET scan and lymph node biopsy while admitted with no steroids while inpatient. ?? Other History of liver transplant (CMS/HCC) Follows with Dr. Gresham -c/w tacro 0.5mg BID -c/w valcyte 450mg BID -tacro trough tomorrow AM Ant Bello MD PGY1 Cosigned by Hernán Coffman MD at 10/11/2019 12:30 PM ARCH CUSHION SKIVING 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 CUSHION SKIVING 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 CUSHION SKIVING 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 Associated attestation - Hernán Coffman MD - 10/11/2019 12:30 PM ARCH CUSHION SKIVING 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 ATTENDING DOCUMENTATION I have seen and examined the patient on 10/11/2019. I agree with the findings and plan of care as documented in the resident's/fellow's note * Sunil Linares MD - 10/10/2019 7:57 PM CST Oncology Medicine History & Physical Chief Complaint: Patient is a 24 y.o. male with chief complaint of fever and cough. Subjective HPI: Mr. Nichols is a 24 [address] of Dr[address] 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 He is admittedfor further treatment of fevers and pneumonia. He presented to [facility] with c/o cough, intermittent, over the past 3 weeks that is now productive and worsened over the past few days. He denies any hemoptysis. He also endorses night sweats and chills during this time. He states he had a temp of Tmax 102F and a sore throat yesterday. He endorses thathe has also had swollen nodes BL neck for the past 3-4 weeks. He endorses poor appetite accompaniedby weight loss.He also endorses nasal congestion. No complaints of Carey, dizziness, chest pain, sob, abd pain, n/v/d, LE edema, rashes. Presented to [facility], afebrile, HR 89, BP 98/61 and saturating well on RA. Labs significant for WBC 12.6, RVP +adeno/parainfluenza, CXR with RML opacity possibly PNA. UA negative. Blood Cx pending. He was given 1L NS bolus and cefepime 1g with BP now to 103/58. In terms of his previous treatments, [id number] he was treated with R-CHOP x1, EPOCH-R x 5, and IT MTX x 1 for DELIVERY ROOM CLERK prophylaxis. He continues on tacrolimus 0.5mg bid. Of note, patient has a 3-4 week history of lymphadenopathy and night sweats, and has a PET scan and Lymph node biopsy scheduled for 10/13/19. Cancer Staging No matching staging information was found for the patient. Oncology History PMH: 1. Liver transpant x 2 for acute liver failure (autoimmune hepatitis), 1998 2. 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 BMBx --> none EBV+ cells otherwise normal, 04/07/17 04/28/2017 - 05/02/2017 Hospital Admission Admit fevers/neutropenia, thrombocytopenia (4k) --> IVIG x 2 (plts 4k --> 230k), steroids, neupogen 05/03/2017 Initial Diagnosis PTLD (GCB). 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 R cervical LNBx --> PTLD ( early ), FISH --> c-myc+ (90%), IGH+, CD20+, CD10+, Bcl-6+, c-myc+ (90%), JAKOB+, Ki-67 95%, FISH-, Bcl-2-, Bcl-6-. Stage at diagnosis: IV A. Initial sites of disease: cervical, axill, mesenteric, RP LAD, lungs, bowel. IPI: 3 (stage, # EN sites, LDH) 08/03/2017 Biopsy R cervical LNBx --> JAKOB+ PTLD ( monomorphic ), c-myc+ by FISH 08/19/2017 Imaging Significant Findings PET/CT --> diffuse LAD with R cervical (SUV 41.7), bilat ax, RP, pulm nodules, bowel 08/25/2017 - 12/08/2017 Chemotherapy R-CHOP x 1, EPOCH-R x 5 --> OR after C2 (5PS 4), CR p C6 (uptake in small bowel SUV 15) 10/06/2017 - Chemotherapy IT MTX x 1 --> D/c due to severe CAREY and evidence intracranial hypotention 10/19/2017 - 10/21/2017 Hospital Admission Admit: PE, spinal headache --> dc'd on Lovenox 11/28/2017 - 12/05/2017 Hospital Admission Admit: neutropenic fever, sepsis, rhinovirus 12/17/2017 - 12/21/2017 Hospital Admission Admit: neutropenic fever, rhinovirus 12/09/2018 Biopsy R cervical LNBx --> florid follicular hyperplasia, JAKOB --> focally+ 03/22/2019 Remission Spontaneous regression Active Treatment & Therapy Plans for Adi Nichols Justin J does not have any [...] BIOPSY LYMPH NODE SUPERFICIAL N/A 05/22/2014 ??? SPLENECTOMY ??? US ABDOMEN COMPLETE W LIVER DUPLEX (C) Right 10/18/2018 ??? US GUIDED BIOPSY LIVER N/A 10/18/2018 No Known Allergies Medications Prior to Admission Medication Sig Dispense Refill Last Dose ??? tacrolimus (PROGRAF) 0.5 mg capsule Take 1 capsule (0.5 mg total) by mouth 2 (two) times a day 180 capsule 3 Taking ??? tacrolimus (PROGRAF) 0.5 mg capsule 0.5 mg 2 (two) times a day Taking ??? valGANciclovir (VALCYTE) 450 mg tablet Take 1 tablet (450 mg total) by mouth daily 30 tablet 2 Taking Current Facility-Administered Medications: ??? acetaminophen (TYLENOL) tablet 500 mg, 500 mg, oral, Q6H PRN, Sunil Linares MD ??? [START ON 10/11/2019] azithromycin (ZITHROMAX) tablet 250 mg, 250 mg, oral, Daily, Sunil Linares MD ??? azithromycin (ZITHROMAX) tablet 500 mg, 500 mg, oral, Once, Sunil Linares MD ??? benzocaine-menthol (CHLORASEPTIC) lozenge 1 lozenge, 1 lozenge, mouth/throat, Q4H PRN, Sunil Linares MD ??? [START ON 10/11/2019] cefTRIAXone (ROCEPHIN) 2,000 mg/20 mL in sterile water (premix) 2,000 mg,2,000 mg, intravenous, Q24H PIPPA, Sunil Linares MD ??? dextromethorphan-guaiFENesin (ROBITUSSIN-DM) 2-20 mg/mL syrup 10 mL, 10 mL, oral, QID PRN, Sunil Linares MD ??? sodium chloride 0.9% bolus 1,000 mL, 1,000 mL, intravenous, Once, Sunil Linares MD ??? sodium chloride 0.9% flush 0.5-20 mL, 0.5-20 mL, intra-catheter, Q8H PIPPA, Sunil Linares MD ??? sodium chloride 0.9% flush 0.5-20 mL, 0.5-20 mL, intra-catheter, PRN, Sunil Linares MD ??? tacrolimus (PROGRAF) capsule 0.5 mg, 0.5 mg, oral, BID, Sunil Linares MD ??? valGANciclovir (VALCYTE) tablet 450 mg, 450 mg, oral, Daily, Sunil Linares MD Family History Problem Relation Age of Onset ??? Rectal cancer Mother Rectal cancer - (Added by TW Conv) ??? Diabetes type II Sister Family history of type 2 diabetes mellitus - (Added by TW Conv) ??? Anesthesia problems Other Social History Tobacco Use ??? Smoking status: Never Smoker ??? Smokeless tobacco: Never Used Substance Use Topics ??? Alcohol use: Not on file Comment: occassional Review of Systems: Review of systems per HPI and otherwise all other systems are negative Objective Vitals: Arrival Vitals [10/10/19 1415] Temp 37 ??C (98.6 ??F) Pulse 89 Resp 18 BP 98/61 SpO2 97 % Temp src Oral Heart Rate Source Monitor Patient Position Sitting BP Location FiO2 (%) 24hr Min/Max: Temp Min: 36.7 ??C (98.1 ??F) Max: 37 ??C (98.6 ??F) Pulse Min: 79 Max: 89 BP Min: 97/55 Max: 103/58 Resp Min: 18 Max: 18 SpO2 Min: 97 % Max: 97 % Most Recent : Vitals: 10/10/192015 BP: Patient Position: Pulse: Resp: Temp: TempSrc: SpO2: Weight: 58.1 kg (128 lb) I/O last 2 completed shifts: In: 1010 [IV Piggyback:1010] Out: - Physical Exam: Gen: NAD, lying in bed comfortably Eyes: EOMI, anicteric ENT: MMM, OP clear Neck: Supple without JVD CV: RRR without murmurs, rubs or gallops, no edema Pulm: Clear to Auscultation without wheezes or crackles with diminished BS on RLL>L Abd: Soft, Non Tender, Non Distended, normal BS MSK: No joint pain, SAMARA Lymph: +BL palpable LAD neck, no palpable in axillary Skin: No visible rashes Neuro: No focal deficits, AAOX4, SAMARA Psych: normal mood and affect Lab/Radiology/Diagnostic Review: Labs and imaging results reviewed. CBC: Recent Labs Lab Units 10/10/19 1441 WBC K/cumm 12.6* HEMOGLOBIN g/dL 13.9 HEMATOCRIT % 40.4 MCV fL 92.9 PLATELETS K/cumm 296 NEUTROS ABS K/cumm 6.0 CMP: Recent Labs Lab Units 10/10/19 1441 SODIUM mmol/L 137 POTASSIUM PLASMA mmol/L 4.2 CO2 mmol/L 24 BUN SERUM mg/dL 9 GLUCOSE mg/dL 90 CREATININE mg/dL 0.81 CALCIUM mg/dL 9.1 CHLORIDE mmol/L 101 ALBUMIN g/dL 3.6 AST Units/L 61* ALT Units/L 51 ALK PHOS Units/L 383* BILIRUBIN TOTAL mg/dL 0.8 TOTAL PROTEIN g/dL 6.2* ANIONGAP mmol/L 12 PT: Recent Labs Lab Units 10/10/19 1441 PROTIME (PT) sec 12.7 PTT: Recent Labs Lab Units 10/10/19 1441 APTT sec 30 Radiology: CXR 2v 10/10: Comparison is made to chest radiograph dated 03/20/2019 at 10:17 AM. Multiple surgical clips project over the right upper quadrant, the left upper quadrant, and the right side of the neck. The heart and mediastinal contours are normal. There is unchanged hilar lymphadenopathy and probable mediastinal lymphadenopathy. There is a new focal opacity overlying the lateral right midlung that may represent pneumonia. No pneumothorax. Assessment/Plan Respiratory Community acquired pneumonia of right middle lobe of lung (CMS/HCC) Cough for several weeks with fevers, chills, night sweats. Now with WBC 12.6, RVP +adeno/parainfluenza. CXR finding of possible RML pneumonia. Afebrile here now and HD stable with softer Bps. 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 Gillespie. -plan for PET while inpatient and LN biopsy Immune Lymphadenopathy BL cervical LAD palpable on physical exam, worsening per patient ongoing for 3-4 weeks. -Case was discussed in [facility] with Dr. Gillespie's team and plan for PET scan and lymph node biopsy while admitted with no steroids while inpatient. Other History of liver transplant (CMS/HCC) Follows with Dr. Gresham -c/w tacro 0.5mg BID -c/w valcyte 450mg BID -tacro trough in am goal 3-5 Sunil Linares MD , PGY-3 Pager: [phone] CUSHION SKIVING 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 CUSHION SKIVING 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 documented in this encounter Consult Notes * David Saab MD - 10/11/2019 1:45 PM CSTAssociated Order(s): IP [facility] Medical Oncology Initial Consult Note Patient Name: Adi Nichols Date of / Age: 4 1995 / 24 y.o. Gender: male Subjective SUBJECTIVE HPI: Adi Nichols is a 24 y.o. 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 Patient was diagnosed with post-transplant lymphoproliferative disorder back in 04/2017. In 3033-4613, he was treated with R-CHOP x1, EPOCH-R x 5, and IT MTX x 1 for DELIVERY ROOM CLERK prophylaxis. He continues on tacrolimus 0.5mg bid. His lymphoma has been in remission since 2018. Over the past 3-4 weeks, patient has developed bilateral cervical, preauricular, and posterior auricular lymphadenopathy. Nodes are nontender and have increased in size over the past couple weeks. During this period, he has also had night sweats. He reports a 3-4 lb weight loss over the past month.On 10/10, he presented to Oncology Clinic with 2-3 week history of productive cough that has worsened over the past several days. He has been subsequently admitted for management of a presumed pneumonia. He is planned to have a lymph node biopsy as well as a PET-CT on 10/13. Medical oncology has been consulted for further recommendations. Cancer History Oncology History PMH: 1. Liver transpant x 2 for acute liver failure (autoimmune hepatitis), 1998 2. 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 BMBx --> none EBV+ cells otherwise normal, 04/07/17 04/28/2017 - 05/02/2017 Hospital Admission Admit fevers/neutropenia, thrombocytopenia (4k) --> IVIG x 2 (plts 4k --> 230k), steroids, neupogen 05/03/2017 Initial Diagnosis PTLD (GCB). 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 R cervical LNBx --> PTLD ( early ), FISH --> c-myc+ (90%), IGH+, CD20+, CD10+, Bcl-6+, c-myc+ (90%), JAKOB+, Ki-67 95%, FISH-, Bcl-2-, Bcl-6-. Stage at diagnosis: IV A. Initial sites of disease: cervical, axill, mesenteric, RP LAD, lungs, bowel. IPI: 3 (stage, # EN sites, LDH) 08/03/2017 Biopsy R cervical LNBx --> JAKOB+ PTLD ( monomorphic ), c-myc+ by FISH 08/19/2017 Imaging Significant Findings PET/CT --> diffuse LAD with R cervical (SUV 41.7), bilat ax, RP, pulm nodules, bowel 08/25/2017 - 12/08/2017 Chemotherapy R-CHOP x 1, EPOCH-R x 5 --> OR after C2 (5PS 4), CR p C6 (uptake in small bowel SUV 15) 10/06/2017 - Chemotherapy IT MTX x 1 --> D/c due to severe CAREY and evidence intracranial hypotention 10/19/2017 - 10/21/2017 Hospital Admission Admit: PE, spinal headache --> dc'd on Lovenox 11/28/2017 - 12/05/2017 Hospital Admission Admit: neutropenic fever, sepsis, rhinovirus 12/17/2017 - 12/21/2017 Hospital Admission Admit: neutropenic fever, rhinovirus 12/09/2018 Biopsy R cervical LNBx --> florid follicular hyperplasia, JAKOB --> focally+ 03/22/2019 Remission Spontaneous regression Treatment Plan Active Treatment & Therapy Plans for Adi Nichols Justin J does not have any [...] BIOPSY LYMPH NODE SUPERFICIAL N/A 05/22/2014 ??? SPLENECTOMY ??? US ABDOMEN COMPLETE W LIVER DUPLEX (C) Right 10/18/2018 ??? US GUIDED BIOPSY LIVER N/A 10/18/2018 HOME MEDICATIONS : tacrolimus (PROGRAF) 0.5 mg capsule tacrolimus (PROGRAF) 0.5 mg capsule valGANciclovir (VALCYTE) 450 mg tablet No Known Allergies Social History Tobacco Use ??? Smoking status: Never Smoker ??? Smokeless tobacco: Never Used Substance Use Topics ??? Alcohol use: Not on file Comment: occassional Family History Problem Relation Age of Onset ??? Rectal cancer Mother Rectal cancer - (Added by TW Conv) ??? Diabetes type II Sister Family history of type 2 diabetes mellitus - (Added by TW Conv) ??? Anesthesia problems Other Family History reviewed and non-contributory. Review of Systems All other systems were reviewed and are negative except for in HPI Objective OBJECTIVE Scheduled Medications: azithromycin, 500 mg, intravenous, Q24H PIPPA cefepime, 2,000 mg, intravenous, Q8H PIPPA sodium chloride 0.9%, 0.5-20 mL, intra-catheter, Q8H PIPPA tacrolimus, 0.5 mg, oral, BID valGANciclovir, 450 mg, oral, Daily vancomycin, 1,000 mg, intravenous, Q12H Continuous Medications: PRN Medications: ??? acetaminophen ??? benzocaine-menthol ??? dextromethorphan-guaiFENesin ??? magnesium sulfate ??? magnesium sulfate ??? potassium chloride ??? potassium chloride ER ??? sodium chloride 0.9% Vitals: Most Recent : Vitals: 10/11/19 0815 BP: (!) 85/54 Pulse: 85 Resp: 20 Temp: 37 ??C (98.6 ??F) SpO2: 94% Intake/Output Summary (Last 24 hours) at 10/11/2019 1345 Last data filed at 10/11/2019 0955 Gross per 24 hour Intake 2430 ml Output 1350 ml Net 1080 ml 24hr Min/Max: Temp Min: 36.7 ??C (98.1 ??F) Max: 37.6 ??C (99.7 ??F) Pulse Min: 79 Max: 91 BP Min: 85/54 Max: 103/58 Resp Min: 18 Max: 20 SpO2 Min: 94 % Max: 97 % Physical exam: General: Not in distress, appears comfortable Head: Normocephalic, atraumatic, bilateral nontender cervical, preauricular, and postauricular lymphadenopathy Eyes: No conjunctival pallor or injection, no icterus Cardiac: Regular rate and rhythm, no murmurs/rubs/gallops, no S3 or S4, no JVD Pulm: Clear bilaterally with adequate effort GI/Abd: Soft, nontender, nondistended; normoactive bowel sounds MSK: Normal bulk and tone, no joint effusions or major deformities Skin: No rash or bruises Extremities: Warm and well perfused, no lower extremity edema Neuro: AAOx4, CN II-XII grossly intact, moves all extremities spontaneously Lab/Diagnostic Review: Recent Results (from the past 24 hour(s)) Blood culture Blood Peripheral Collection Time: 10/10/19 2:41 PM Result Value Ref Range Report Preliminary Report: No growth to date. Blood culture Blood Peripheral Collection Time: 10/10/19 2:41 PM Result Value Ref Range Report Preliminary Report: No growth to date. CBC with auto differential Collection Time: 10/10/19 2:41 PM Result Value Ref Range WBC 12.6 (H) 3.8 - 9.9 K/cumm Hgb 13.9 13.0 - 17.5 g/dL Hct 40.4 38.9 - 50.3 % Plt 296 150 - 400 K/cumm MPV 10.0 9.1 - 12.3 fL RBC 4.35 4.30 - 5.80 M/cumm MCV 92.9 81.3 - 96.4 fL MCH 32.0 27.1 - 33.3 pg MCHC 34.4 32.3 - 35.7 g/dL RDW CV 14.8 11.1 - 14.9 % RDW SD 51.0 (H) 35.7 - 48.1 fL NRBC abs 0.00 0.00 - 0.01 K/cumm Comprehensive metabolic panel Collection Time: 10/10/19 2:41 PM Result Value Ref Range Sodium 137 135 - 145 mmol/L Potassium, pl 4.2 3.3 - 4.9 mmol/L Chloride 101 97 - 110 mmol/L CO2 24 22 - 32 mmol/L Anion gap 12 2 - 15 mmol/L BUN 9 8 - 25 mg/dL Creatinine 0.81 0.80 - 1.30 mg/dL Glucose 90 70 - 199 mg/dL Calcium 9.1 8.5 - 10.3 mg/dL Bilirubin, total 0.8 0.1 - 1.2 mg/dL Protein, pl 6.2 (L) 6.5 - 8.5 g/dL Albumin 3.6 3.5 - 5.0 g/dL Alk phos 383 (H) 40 - 130 Units/L ALT 51 7 - 55 Units/L AST 61 (H) 10 - 50 Units/L Lactate Collection Time: 10/10/19 2:41 PM Result Value Ref Range Lactate 1.5 0.7 - 2.0 mmol/L Magnesium Collection Time: 10/10/19 2:41 PM Result Value Ref Range Magnesium 1.4 1.4 - 2.5 mg/dL Phosphorus Collection Time: 10/10/19 2:41 PM Result Value Ref Range Phosphorus, pl 3.2 2.3 - 4.5 mg/dL Respiratory pathogen PCR Nasopharyngeal Collection Time: 10/10/19 2:41 PM Result Value Ref Range Adenovirus DNA Detected (A) Not Detected Coronavirus 229E RNA Not Detected Not Detected Coronavirus HKU1 RNA Not Detected Not Detected Coronavirus NL63 RNA Not Detected Not Detected Coronavirus OC43 RNA Not Detected Not Detected Metapneumovirus RNA Not Detected Not Detected Rhinovirus/Enterovirus RNA Not Detected Not Detected Influenza A RNA Not Detected Not Detected Influenza B RNA Not Detected Not Detected Parainfluenza Virus 1 RNA Not Detected Not Detected Parainfluenza Virus 2 RNA Not Detected Not Detected Parainfluenza Virus 3 RNA Not Detected Not Detected Parainfluenza Virus 4 Detected (A) Not Detected RSV RNA Not Detected Not Detected Bordetella pertussis DNA Not Detected Not Detected Chlamydophila pneumoniae DNA Not Detected Not Detected Mycoplasma pneumoniae DNA Not Detected Not Detected Bordetella parapertussis DNA Not Detected Not Detected Type and screen Collection Time: 10/10/19 2:41 PM Result Value Ref Range Carol, indirect Negative ABO Rh A Positive aPTT Collection Time: 10/10/19 2:41 PM Result Value Ref Range aPTT 30 25 - 37 sec Differential, auto Collection Time: 10/10/19 2:41 PM Result Value Ref Range Neutrophil abs 6.0 1.7 - 6.5 K/cumm Imm gran abs 0.6 (H) 0.0 - 0.1 K/cumm Lymphocyte abs 2.8 0.8 - 3.3 K/cumm Monocyte abs 3.0 (H) 0.2 - 0.8 K/cumm Eosinophil abs 0.1 0.0 - 0.5 K/cumm Basophil abs 0.1 0.0 - 0.1 K/cumm Neutrophil pct 47.7 % Imm gran pct 4.6 % Lymphocyte pct 22.4 % Monocyte pct 23.6 % Eosinophil pct 0.7 % Basophil pct 1.0 % Protime-INR Collection Time: 10/10/19 2:41 PM Result Value Ref Range PT 12.7 8.6 - 13.0 sec INR 1.2 0.8 - 1.2 Urinalysis with reflex for neutropenic patient Urine, clean voided Collection Time: 10/10/19 4:48 PM Result Value Ref Range Color, ur Yellow Yellow Clarity, ur Clear Clear Specific gravity, ur 1.005 (L) 1.010 - 1.025 pH, urine 7 Protein, ur ql Negative Negative Glucose, ur ql Negative Negative Ketones, ur Negative Negative Bilirubin, ur Negative Negative Blood, ur Negative Negative Urobilinogen, ur <2.0 <2.0 mg/dL Nitrite, ur Negative Negative Leukocyte esterase, ur Negative Negative CBC with auto differential Collection Time: 10/11/19 4:58 AM Result Value Ref Range WBC 13.7 (H) 3.8 - 9.9 K/cumm Hgb 13.7 13.0 - 17.5 g/dL Hct 39.4 38.9 - 50.3 % Plt 291 150 - 400 K/cumm MPV 9.7 9.1 - 12.3 fL RBC 4.19 (L) 4.30 - 5.80 M/cumm MCV 94.0 81.3 - 96.4 fL MCH 32.7 27.1 - 33.3 pg MCHC 34.8 32.3 - 35.7 g/dL RDW CV 15.1 (H) 11.1 - 14.9 % RDW SD 52.1 (H) 35.7 - 48.1 fL NRBC abs 0.00 0.00 - 0.01 K/cumm Comprehensive metabolic panel Collection Time: 10/11/19 4:58 AM Result Value Ref Range Sodium 140 135 - 145 mmol/L Potassium, pl 4.7 3.3 - 4.9 mmol/L Chloride 109 97 - 110 mmol/L CO2 22 22 - 32 mmol/L Anion gap 9 2 - 15 mmol/L BUN 6 (L) 8 - 25 mg/dL Creatinine 0.72 (L) 0.80 - 1.30 mg/dL Glucose 88 70 - 199 mg/dL Calcium 8.6 8.5 - 10.3 mg/dL Bilirubin, total 0.7 0.1 - 1.2 mg/dL Protein, pl 5.4 (L) 6.5 - 8.5 g/dL Albumin 3.0 (L) 3.5 - 5.0 g/dL Alk phos 315 (H) 40 - 130 Units/L ALT 37 7 - 55 Units/L AST 43 10 - 50 Units/L Tacrolimus level trough Collection Time: 10/11/19 4:58 AM Result Value Ref Range Tacrolimus, trough 6.5 ng/mL Differential, auto Collection Time: 10/11/19 4:58 AM Result Value Ref Range Neutrophil abs 5.7 1.7 - 6.5 K/cumm Imm gran abs 0.5 (H) 0.0 - 0.1 K/cumm Lymphocyte abs 4.2 (H) 0.8 - 3.3 K/cumm Monocyte abs 2.8 (H) 0.2 - 0.8 K/cumm Eosinophil abs 0.3 0.0 - 0.5 K/cumm Basophil abs 0.1 0.0 - 0.1 K/cumm Neutrophil pct 41.7 % Imm gran pct 3.5 % Lymphocyte pct 30.9 % Monocyte pct 20.6 % Eosinophil pct 2.3 % Basophil pct 1.0 % I have reviewed the laboratory results. Imaging Results: XR Chest Pa Lateral 2 Views Narrative: EXAMINATION: 2 view chest radiograph Impression: Comparison is made to chest radiograph dated 03/20/2019 at 10:17 AM. Multiple surgical clips project over the right upper quadrant, the left upper quadrant, and the right side of the neck. The heart and mediastinal contours are normal. There is unchanged hilar lymphadenopathy and probable mediastinal lymphadenopathy. There is a new focal opacity overlying the lateral right midlung that may represent pneumonia. No pneumothorax. Dictated by: Chaz Dodd M.D. The radiology attending physician has personally reviewed this study, and had reviewed and/or edited this written report and agrees with it. Electronically signed by: Magdi Knutson M.D. Assessment/Plan ASSESSMENT & PLAN Adi Nichols is a 24 y.o. 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 He also has a 3-4 week hx of bilateral non-tender cervical, preauricular, and posterior auricular lymphadenopathy with associated night sweats then 3 4 lb weight loss. Recommendations -Agree w/ PET and lymph node biopsy scheduled for 10/13 -management of pneumonia per primary team Please do not hesitate to contact with questions. David Saab MD Internal Medicine, PGY-7 Cosigned by John Bryant MD at 10/11/2019 3:20 PM ARCH CUSHION SKIVING 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 CUSHION SKIVING 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 CUSHION SKIVING 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 Associated attestation - John Bryant MD - 10/11/2019 3:20 PM ARCH CUSHION SKIVING 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 I have seen and examined the patient on 10/11/2019. I agree with the findings and plan of care as documented in the resident's note. John Bryant MD documented in this encounter Nursing Notes * Usha Magallanes RN - 10/10/2019 7:59 PM CST Received t from January Lowery. Patient was admitted to [facility] . Report called and given to SHAILESH Aldridge .Patient and belongings were transferred to the floor by RN. CUSHION SKIVING 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 * January Lowery RN - 10/10/2019 2:30 PM CST To [facility] for fever work up. Endorses night sweats x 2 weeks, took temp today and noted to be febrile at home. Cough x 2 weeks, productive with white to yellow sputum that is thick and difficulty to expectorate which sometimes causes vomiting. Also endorses poor appetite, fatigue/malaise. Noted lymphadenopathy to right cervical neck. Blood cx x2 peripheral sets, serum labs, and respiratory swab completed. CUSHION SKIVING 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 documented in this encounter Miscellaneous Notes * Plan of Care - Conchis León RN - 10/13/2019 3:10 PM CST Goals: Clinical Goals for the Shift: biopsy and discharge Summary: lymph node bx done, VSS, pt c/o no pain, family at bedside to take pt home. CUSHION SKIVING 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 * Post-Procedure Note - Jason Rae IV, MD - 10/13/2019 12:24 PM ARCH CUSHION SKIVING 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 Radiology Brief Post Procedure Note Attending: Butch Senior Sas Programmer: Dane Sedation/Anesthesia: Local Pre-Op/Pre-Procedure Diagnosis: axillary LAD Post-Op/Post-Procedure Diagnosis: same Procedure Performed: US guided core needle biopsy Procedure Findings: multiple axillary lymph nodes identified Complications: None Estimated Blood Loss: < 30 ml Specimens: 18 guage with 1.5cm throw x6 Condition: Stable Full report to follow. CUSHION SKIVING 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 * Plan of Care - Bonita Caruso RN - 10/13/2019 6:12 AM CST Goals: Clinical Goals for the Shift: monitor vitals, NPO midnigt Summary: Problem: Health Behavior: Goal: Understanding of discharge needs will improve 10/13/2019 0612 by Bonita Caruso RN Outcome: Progressing 10/13/2019 0524 by Bonita Caruso RN Outcome: Progressing CUSHION SKIVING 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 * Hospital Course - Ant Bello MD - 10/12/2019 1:25 PM ARCH CUSHION SKIVING 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 Hospital??acquired pneumonia of right middle lobe of lung (CMS/HCC) Had productive cough with white/yellow sputum for several weeks with fevers, chills, night sweats. On admission WBC??13, Respiratory Viral Panel positive for adeno/parainfluenza. CXR finding of possible RML pneumonia.??Empirically started on Azithromycin, Cefepime, and Vancomycin for 2 days. Patient remained afebrile throughout admission and hemodynamically stable with unchanging, soft blood pressures (patient's baseline). Blood cultures and MRSA nasal swab showed no growth. Antibiotics were to only Levofloxacin 750mg PO for a total of 5 days, patient was discharged on day 3 to finish course at home. Upon discharge, patient felt more energetic, denied fevers, chills, SOB, chest pain, pleurisy, or hemoptysis. Only residual symptom was productive cough. ?? 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 Gillespie. Will continue to see as outpatient -PET and LN biopsy??today. -Consulted med onc, who had no new recommendations during admission. ?? Lymphadenopathy BL cervical LAD palpable on physical exam, worsening per patient ongoing for 3-4 weeks. -Case was discussed in CCC with??Dr. Gillespie's team and planed for??PET scan and lymph node biopsywhile admitted with no steroids. ?? History of liver transplant (CMS/HCC) Follows with Dr. Gresham. Will continue to see as outpatient -Continued tacrolimus 0.5mg BID -Continued valcyte 450mg BID -Tacro trough 8.1 CUSHION SKIVING 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 CUSHION SKIVING 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 * Plan of Care - Lynn Watson RN - 10/12/2019 6:22 AM CST Goals: Clinical Goals for the Shift: Continue antibiotics w/no adverse reaction Summary: Antibiotics continued w/no obvious s/s of adverse reaction. PIV in R posterior hand removed per pt request d/t pain at insertion site. New PIV placed in R posterior forearm. BP soft (pt baseline). Continuing to monitor pt for changes. Problem: Health Behavior: Goal: Understanding of discharge needs will improve Outcome: Progressing CUSHION SKIVING 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 * Plan of Care - Yang Grande - 10/11/2019 5:45 PM CST Problem: Health Behavior: Goal: Understanding of discharge needs will improve Outcome: Progressing Goals: Clinical Goals for the Shift: Receive abx and rest Summary: Pt received two doses of Cefepime and first dose of Vancomycin. He is scheduled to receivea PET scan. VS WDL. Pt remains A&O x4, up ad deonte with steady gait, and uses call light appropriately when in need of assistance. CUSHION SKIVING 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 * Plan of Care - Luis Carlos Henley RN - 10/11/2019 6:05 AM CST Problem: Health Behavior: Goal: Understanding of discharge needs will improve Outcome: Progressing Goals: Clinical Goals for the Shift: Abx, rest, orient to unit Summary: VSS, afebrile, denies pain, Abx tolerated. Nursing will continue to monitor. 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 Gillespie. -plan for PET while inpatient and LN biopsy CUSHION SKIVING 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 * Assessment & Plan Note - Sunil Linares MD - 10/10/2019 8:39 PM ARCH CUSHION SKIVING 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 Associated Problem(s): Community acquired pneumonia Cough for several weeks with fevers, chills, night sweats. Now with WBC 12.6, RVP +adeno/parainfluenza. CXR finding of possible RML pneumonia. Afebrile here now and HD stable with softer Bps. -s/p 1L NS in CCC; will give second bolus given softer Bps and poor po intake -s/p cefepime 1g in CCC, transition to azithro 500mg today and then 250mg tomorrow, CTX 2g q24h starting tomorrow -robitussin for cough prn -throat lozenge prn for sore throat -apap 500 q6h prn for fevers -f/u blood cultures x2 CUSHION SKIVING 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 CUSHION SKIVING 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 CUSHION SKIVING 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 * Assessment & Plan Note - Sunil Linares MD - 10/10/2019 8:38 PM ARCH CUSHION SKIVING 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 Associated Problem(s): History of liver transplant (CMS/HCC) (HCC) Follows with Dr. Gresham -c/w tacro 0.5mg BID -c/w valcyte 450mg BID -tacro trough in am goal 3-5 CUSHION SKIVING 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 * Assessment & Plan Note - Sunil Linares MD - 10/10/2019 8:37 PM ARCH CUSHION SKIVING 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 Associated Problem(s): Lymphadenopathy BL cervical LAD palpable on physical exam, worsening per patient ongoing for 3-4 weeks. -Case was discussed in [facility] with Dr. Gillespie's team and plan for PET scan and lymph node biopsy while admitted with no steroids while inpatient. CUSHION SKIVING 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 documented in this encounter Plan of Treatment Scheduled Procedures Name Priority Associated Diagnoses Date/Ti de COLONOSCOPY Encounter for screening for colorectal cancer in high risk patient Family history of rectal cancer documented as of this encounter Procedures Procedure Name Priority Date/Time Associated Diagnosis Comments US GUIDED BIOPSY LYMPH NODE SUPERFICIAL LEFT IP Routine 10/13/2019 12:24 PM ARCH CUSHION SKIVING 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 SURGICAL PATHOLOGY Routine 10/13/2019 12:09 PM ARCH CUSHION SKIVING 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 PTLD (post-transplant lymphoproliferative disorder) (CMS/HCC) DIFFERENTIAL AUTO Routine 10/13/2019 1:33 AM ARCH CUSHION SKIVING 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 CBC WITH AUTO DIFFERENTIAL Routine 10/13/2019 1:33 AM ARCH CUSHION SKIVING 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 BASIC METABOLIC PANEL Routine 10/13/2019 1:33 AM ARCH CUSHION SKIVING 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 PET/CT FDG SKULL TO THIGH IP Routine 10/12/2019 2:34 PM ARCH CUSHION SKIVING 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 TACROLIMUS LEVEL, TROUGH Routine 10/12/2019 6:15 AM ARCH CUSHION SKIVING 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 INFECTION PREVENTION MRSA ONLY (STAPHYLOCOCCUS AUREUS) CULTURE Routine 10/11/2019 8:32 AM ARCH CUSHION SKIVING 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 DIFFERENTIAL AUTO Routine 10/11/2019 4:58 AM ARCH CUSHION SKIVING 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 TACROLIMUS LEVEL, TROUGH Routine 10/11/2019 4:58 AM ARCH CUSHION SKIVING 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 CBC WITH AUTO DIFFERENTIAL Routine 10/11/2019 4:58 AM ARCH CUSHION SKIVING 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 COMPREHENSIVE METABOLIC PANEL Routine 10/11/2019 4:58 AM ARCH CUSHION SKIVING 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 URINALYSIS WITH REFLEX FOR NEUTROPENIC PATIENT STAT 10/10/2019 4:48 PM ARCH CUSHION SKIVING 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 XR CHEST PA LATERAL 2 VIEWS ED Urgent/IP Urgent 10/10/2019 3:02 PM ARCH CUSHION SKIVING 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 LACTATE STAT 10/10/2019 2:41 PM ARCH CUSHION SKIVING 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 DIFFERENTIAL AUTO STAT 10/10/2019 2:41 PM ARCH CUSHION SKIVING 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 RESPIRATORY PATHOGEN PANEL STAT 10/10/2019 2:41 PM ARCH CUSHION SKIVING 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 CBC WITH AUTO DIFFERENTIAL STAT 10/10/2019 2:41 PM ARCH CUSHION SKIVING 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 BLOOD CULTURE Routine 10/10/2019 2:41 PM ARCH CUSHION SKIVING 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 BLOOD CULTURE Routine 10/10/2019 2:41 PM ARCH CUSHION SKIVING 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 APTT STAT 10/10/2019 2:41 PM ARCH CUSHION SKIVING 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 PROTIME-INR STAT 10/10/2019 2:41 PM ARCH CUSHION SKIVING 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 TYPE AND SCREEN STAT 10/10/2019 2:41 PM ARCH CUSHION SKIVING 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 PHOSPHORUS STAT 10/10/2019 2:41 PM ARCH CUSHION SKIVING 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 MAGNESIUM STAT 10/10/2019 2:41 PM ARCH CUSHION SKIVING 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 COMPREHENSIVE METABOLIC PANEL STAT 10/10/2019 2:41 PM ARCH CUSHION SKIVING 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 documented in this encounter Results * US Guided Biopsy Lymph Node Superficial (10/13/2019 12:24 PM ARCH CUSHION SKIVING 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) Anatomical Region Laterality Modality Entire body N/A Ultrasound 10/13/2019 1:19 PM ARCH CUSHION SKIVING 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 Impressions 10/13/2019 1:29 PM ARCH CUSHION SKIVING 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 1. Successful ultrasound-guided core needle biopsy of a left axillary lymph node. 2. Please see separate Surgical Pathology results for final interpretation. Dictated by: Nikolai Vela M.D. The radiology attending physician has personally reviewed this study, and had reviewed and/or edited this written report and agrees with it. Electronically signed by: Jason Rae IV, M.D. Narrative 10/13/2019 1:29 PM ARCH CUSHION SKIVING 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 EXAMINATION: ULTRASOUND-GUIDED CORE BIOPSY HISTORY: ??24-year-old male with post transplant lymphoproliferative disorder following orthotopic liver transplantation. COMPARISON: ??PET/CT 10/12/2019 FINDINGS: Limited sonographic views of left axilla demonstrate multiple enlarged lymph nodes similar to prior PET/CT 10/12/2019. TECHNIQUE: ??The procedure for ultrasound-guided core biopsy ??was explained to and discussed with the patient. Risks were explained to include, but not be limited to, hemorrhage, infection, injury to adjacent organs, non-diagnostic specimen and adverse reaction to medications administered. The patient voiced understanding and wished to proceed and signed the consent form. CORE BIOPSY: ??The lymph node was located in the left axilla and measured 3.9 cm x 2.0 cm x 1.3 cm. An appropriate site was localized for core biopsy. The patient's overlying skin was prepped and draped in the usual sterile fashion. Local anesthesia was achieved via subcutaneous and deep administration with 7 mL of Lidocaine 1%. Under realtime ultrasound guidance, 5 passes were made with an 18 gauge Corvocet core biopsy needle, 1.5 cm throw, without the use of a 17 gauge introducer needle. ??Three of the core specimens were placed in formalin and 2 of the core specimens were placed in RPMI before being hand delivered to Surgical Pathology for evaluation. The patient's skin was cleaned and dressed. The patient tolerated the entire procedure well without immediate complications. Dr. Jason Rae IV, M.D., the attending radiologist, was present from the beginning to the end of the procedure. Dr. Nikolai Vela performed the biopsy. Procedure Note Jason Rae IV, MD - 10/13/2019 EXAMINATION: ULTRASOUND-GUIDED CORE BIOPSY HISTORY: 24-year-old male with post transplant lymphoproliferative disorder following orthotopic liver transplantation. COMPARISON: PET/CT 10/12/2019 FINDINGS: Limited sonographic views of left axilla demonstrate multiple enlarged lymph nodes similar to prior PET/CT 10/12/2019. TECHNIQUE: The procedure for ultrasound-guided core biopsy was explained to and discussed with the patient. Risks were explained to include, but not be limited to, hemorrhage, infection, injury to adjacent organs, non-diagnostic specimen and adverse reaction to medications administered. The patient voiced understanding and wished to proceed and signed the consent form. CORE BIOPSY: The lymph node was located in the left axilla and measured 3.9 cm x 2.0 cm x 1.3 cm. An appropriate site was localized for core biopsy. The patient's overlying skin was prepped and draped in the usual sterile fashion. Local anesthesia was achieved via subcutaneous and deep administration with 7 mL of Lidocaine 1%. Under realtime ultrasound guidance, 5 passes were made with an 18 gauge Corvocet core biopsy needle, 1.5 cm throw, without the use of a 17 gauge introducer needle. Three of the core specimens were placed in formalin and 2 of the core specimens were placed in RPMI before being hand delivered to Surgical Pathology for evaluation. The patient's skin was cleaned and dressed. The patient tolerated the entire procedure well without immediate complications. Dr. Jason Rae IV, M.D., the attending radiologist, was present from the beginning to the end of the procedure. Dr. Nikolai Vela performed the biopsy. IMPRESSION: 1. Successful ultrasound-guided core needle biopsy of a left axillary lymph node. 2. Please see separate Surgical Pathology results for final interpretation. Dictated by: Nikolai Vela M.D. The radiology attending physician has personally reviewed this study, and had reviewed and/or edited this written report and agrees with it. Electronically signed by: Jason Rae IV, M.D. Anita Gillespie MD [facility] PROCEDURES Final Re sult * Surgical pathology (10/13/2019 12:09 PM ARCH CUSHION SKIVING 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) Tissue (Lymph node, needle biopsy) 10/13/2019 12:09 PM ARCH CUSHION SKIVING 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 Tissue (Lymph node, Including flow cytometry) 10/13/2019 12:22 PM ARCH CUSHION SKIVING 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 Narrative PATHOLOGY [facility] - 10/18/2019 3:31 PM ARCH CUSHION SKIVING 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 EPIC results best viewed via link to PDF [facility] [place] [address] SURGICAL PATHOLOGY REPORT FINAL Patient Name: ?? ADI NICHOLS Gender: ??M : ??1995 (Age: 24) Address: ??[address] [place] [id number] Hospital #: ??[id number] Taken:10/13/2019 Received:10/13/2019 Reported: 10/18/2019 Patient Type: [facility] Inpatient ?? Service: Oncology Location: [facility] ??[id number] Physician(s): ??Anita Gillespie M.D. Guero Colunga D.O. Diagnosis: Lymph node, left axillary, needle-core biopsy: - ?Organized lymphoid tissue with reactive features - ?No evidence of lymphoproliferative disorder ? - ??No clonal B-cell or immunophenotypically abnormal T cell population identified by flow cytometry rxb/10/18/2019 13:06 By this signature, I attest that the above diagnosis is based upon my personal examination of the slides(and/or other material indicated in the diagnosis). Cliff Ribeiro M.D. Report Electronically Reviewed and Signed Out By ??Cliff Ribeiro M.D. 10/18/2019 15:31:35 Microscopic Description and Comment: Histology: Sections show vaguely nodular lymphoid architecture composed of variably-sized and irregularly-shaped follicles with prominent, polar germinal centers, sharply-demarcated and somewhat-attenuated mantle zones, and vague marginal zones. The paracortex is unremarkable and composed of interfollicular small and mature lymphocytes and dense fibrosis. ?? Immunohistochemistry: A series of immunohistochemical stains (with appropriate levels of reactive controls) is performed on blocks A1 (CD3, CD20, PAX5, CD10, CD21, and KI67) and A2 (CD3, CD20, PAX5 CD10, CD21, CD138, BCL-2, BCL-6, RASHAUN kappa and lambda, and JAKOB RASHAUN) in order to assess the lymph node (in appropriate tissue context). The follicles/aggregates are highlighted by CD10, CD20, PAX5, BCL-6, and antithetically by CD3 and BCL-2. ??The follicular dendritic meshworks are retained as demonstrated by CD21. ??The KI-67 proliferation index is increased within the follicles and 5% within the interfollicular regions. ??CD3 highlights mature interfollicular T- lymphocytes. ??CD138 highlights scattered, individual, plasma cells which are polytypic by in situ hybridization for kappa and lambda light chains. ??There is no EBV RNA detected by in situ hybridization (JAKOB RASHAUN). Flow cytometry: Flow cytometry performed on axillary lymph node reveals a lymphocyte gate containing 43% of overall events with 6% B-lymphocytes and 71% T-lymphocytes. ??The B-lymphocytes are for polytypic kappa and lambda light chains and demonstrate no significant coexpression for CD5, CD10, or CD23. ??The CD3+ T-lymphocytes show no aberrant loss of T-cell associated markers CD2, CD5, and CD7 and have a CD4 to CD8 ratio within normal limits. No simultaneous co-expression of CD4 and CD8 is observed. There is no expression for CD30 or CD56. Hans Anna MD History: The patient is a 24-year-old man with history of post-transplant lymphoproliferative disorder secondary to liver transplant (03/30/2019) presenting with new adenopathy. ??Operative procedure: Left axillary lymph node biopsy. Specimen(s) Received: A: Left axillary lymph node core needle biopsy B: Left axillary lymph node core needle biopsy Gross Description: The specimen is received one formalin filled container labeled with the patient's name and left axillary lymph node core needle biopsy. ??It contains three preston- pink soft tissue cores ranging from 0.7 cm 21.0 cm in length and each measuring 0.1 cm in diameter. ??Stained with hematoxylin. ??Labeled A1 to A2. ??Jar 0. cnewho/10/13/2019 13:46 Gross Pathologist: Cliff Ribeiro M.D. PA(s): ADAM Nicholson, CT ([facility]) By this signature, I attest that the above diagnosis is based upon my personal examination of the slides(and/or other material). The performance characteristics of some immunohistochemical stains, fluorescence in-situ hybridization tests and immunophenotyping by flow cytometry cited in this report (if any) were determined by the Surgical Pathology Department at [facility] as part of an ongoing quality control systems manager program and in compliance with federally [...] determined by the Surgical Pathology Department of [facility]. ??It has not been cleared or approved by the U. S. Food and Drug Administration. IMAGES AND SCANNED DOCUMENTS, IF INCLUDED, ONLY VIEWABLE IN PDF VERSION OF REPORT Anita Gillespie MD LAB PATHOLOGY ORDERABLES F inal Result PATHOLOGY [place] [address] [place], [place] [phone] * (ABNORMAL) Differential, auto (10/13/2019 1:33 AM ARCH CUSHION SKIVING 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) Neutrophil abs 3.2 1.7 - 6.5 K/cumm [facility] Imm gran abs 0.2(H) 0.0 - 0.1 K/cumm [facility] Lymphocyte abs 3.2 0.8 - 3.3 [facility] Monocyte abs 2.0(H) 0.2 - 0.8 K/cumm [facility] Eosinophil abs 0.5 0.0 - 0.5 K/cumm [facility] Basophil abs 0.1 0.0 - 0.1 K/cumm [facility] Neutrophil pct 35.2 % [facility] Comment: Interpretive Data Percent cell count reference ranges are not reported, since discordance with absolute values may lead to misinterpretation of CBC data. Current Interpretive Data was last revised on 2018. Imm gran pct 2.2 % [facility] Comment: Interpretive Data Percent cell count reference ranges are not reported, since discordance with absolute values may lead to misinterpretation of CBC data. Current Interpretive Data was last revised on 2018. Lymphocyte pct 34.7 % [facility] Comment: Interpretive Data Percent cell count reference ranges are not reported, since discordance with absolute values may lead to misinterpretation of CBC data. Current Interpretive Data was last revised on 2018. Monocyte pct 22.0 % [facility] Comment: Interpretive Data Percent cell count reference ranges are not reported, since discordance with absolute values may lead to misinterpretation of CBC data. Current Interpretive Data was last revised on 2018. Eosinophil pct 5.2 % [facility] Comment: Interpretive Data Percent cell count reference ranges are not reported, since discordance with absolute values may lead to misinterpretation of CBC data. Current Interpretive Data was last revised on 2018. Basophil pct 0.7 % [facility] Comment: Interpretive Data Percent cell count reference ranges are not reported, since discordance with absolute values may lead to misinterpretation of CBC data. Current Interpretive Data was last revised on 2018. Blood specimen (specimen) 10/13/2019 1:33 AM ARCH CUSHION SKIVING 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 10/13/2019 1:47 AM ARCH CUSHION SKIVING 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 Hernán Coffman MD LAB BLOOD ORDERABLES Chata l Result Performing Organization Address City/[facility]/ZIP Co de Phone Number [facility] Department [place] [address] * (ABNORMAL) Basic metabolic panel (10/13/2019 1:33 AM ARCH CUSHION SKIVING 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) [facility] Sodium 140 135 - 145 mmol/L [facility] Potassium, pl 4.4 3.3 - 4.9 mmol/L [facility] Chloride 108 97 - 110 mmol/L [facility] CO2 24 22 - 32 mmol/L [facility] Anion gap 8 2 - 15 mmol/L [facility] BUN 9 8 - 25 mg/dL [facility] Creatinine 0.70(L) 0.80 - 1.30 mg/dL [facility] Glucose 95 70 - 199 mg/dL [facility] Comment: Interpretive Data Fasting glucose >/= 126 [...] interpretive data was last revised 2017. Calcium 8.4(L) 8.5 - 10.3 mg/dL [facility] Blood specimen (specimen) 10/13/2019 1:33 AM ARCH CUSHION SKIVING 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 10/13/2019 1:46 AM ARCH CUSHION SKIVING 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 Hernán Coffman MD LAB BLOOD ORDERABLES Chata l Result Performing Organization Address [facility]/ZIP Co de Phone Number [facility] Department [place] [address] * (ABNORMAL) CBC with auto differential (10/13/2019 1:33 AM ARCH CUSHION SKIVING 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) WBC 9.2 3.8 - 9.9 K/cumm [facility] Hgb 14.8 13.0 - 17.5 g/dL [facility] Hct 43.5 38.9 - 50.3 % [facility] Plt 369 150 - 400 K/cumm [facility] MPV 9.5 9.1 - 12.3 fL [facility] RBC 4.59 4.30 - 5.80 M/cumm [facility] MCV 94.8 81.3 - 96.4 fL [facility] MCH 32.2 27.1 - 33.3 pg [facility] MCHC 34.0 32.3 - 35.7 g/dL [facility] RDW CV 14.8 11.1 - 14.9 % [facility] RDW SD 52.3(H) 35.7 - 48.1 fL [facility] NRBC abs 0.00 0.00 - 0.01 K/cumm [facility] Blood specimen (specimen) 10/13/2019 1:33 AM ARCH CUSHION SKIVING 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 10/13/2019 1:47 AM ARCH CUSHION SKIVING 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 Hernán Coffman MD LAB BLOOD ORDERABLES Chata l Result [facility] Department [place] [address] * PET/CT FDG Skull to Thigh (10/12/2019 2:34 PM ARCH CUSHION SKIVING 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) Anatomical Region Laterality Modality N/A Positron Emissio n Tomography (PET) 10/12/2019 4:30 PM ARCH CUSHION SKIVING 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 Impressions 10/12/2019 5:56 PM ARCH CUSHION SKIVING 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 1. Interval increase in size and FDG avidity of diffuse lymphadenopathy above and below the diaphragm (considerably worse than on the prior study dated 01/03/2019), most consistent with disease progression. 2. Bilateral hypermetabolic pulmonary opacities, which can be infectious/inflammatory or represent lymphomatous involvement. 3. Assuming the diffuse lymphadenopathy represents lymphoma, 5PS=5 Dictated by: Sherin Gould M.D. :: The radiology attending physician has personally reviewed this study, and had reviewed and/or edited this written report and agrees with it. Electronically signed by: Jesús Mahan M.D. Narrative 10/12/2019 5:56 PM ARCH CUSHION SKIVING 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 EXAMINATION: TUMOR FDG-PET/CT IMAGING DATE OF STUDY: ??10/12/2019 SCANNER: mCT RADIOPHARMACEUTICAL: 12.6 mCi F-18 Fluorodeoxyglucose (FDG) i.v. Injection site: Left wrist HISTORY: 24-year-old man with with posttransplant lymphoproliferative disorder after receiving orthotopic liver transplant 03/03/2009 for autoimmune hepatitis, who presents to hospital with fevers and pneumonia. He has a 3-4 week history of bilateral nontender cervical, periauricular and posterior auricular lymphadenopathy with associated night sweats and weight loss. ??The patient's prior PET/CT study dated 01/03/2019 demonstrated multiple new hypermetabolic nodes above and below the diaphragm, as well as diffusely increased marrow FDG uptake. Lymph node biopsy after that study demonstrated florid follicular hyperplasia with focally increased EBV-positive cells and marrow biopsy demonstrated no evidence of lymphoma. The patient has had no subsequent treatment for PTLD. This study is requested for detection of suspected recurrence, because of the new symptoms. Subsequent treatment strategy. TECHNIQUE: ??The patient's fasting blood glucose level, measured by glucometer before injection of FDG, was 78 mg/dL. ??MD-Gastroview was not given orally. ??After intravenous administration of FDG, noncontrast CT images were obtained for attenuation correction and for fusion with emission PET images to allow for anatomical localization of PET findings. ??Emission PET images were then obtained. ??The study was interpreted on the [employer] workstation. ??The mean liver SUV (reported for clinical quality assurance specialist purposes) is 2.0. ?? The total scanned area was skull base to the proximal thighs. ??Images of the body were obtained starting 51 minutes after injection of tracer. COMPARISON: 01/03/2019 FINDINGS: ??There is FDG-avid bilateral cervical, supraclavicular, axillary, mediastinal, hilar, retroperitoneal, iliac, and inguinal lymphadenopathy, markedly increased as the prior examination. ??The most FDG-avid lesion is a left cervical lymph node with maximum SUV of 14.2. ?? There is an FDG-avid peripheral opacity within the right upper lobe, new since the prior examination, with maximum SUV of 14.4. Additional, predominantly peripheral opacities within both lungs demonstrate mildly increased FDG uptake. ??These can be inflammatory/infectious in etiology, or alternatively, lymphomatous involvement. There has been interval resolution of a right lower lobe peripheral hypermetabolic opacity. Redemonstrated is diffusely increased increased bone marrow activity, greater than that of the liver. Additional CT findings: There is bilateral mucosal thickening within the maxillary and ethmoid sinuses. 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 Procedure Note Jesús Mahan MD - 10/12/2019 EXAMINATION: TUMOR FDG-PET/CT IMAGING DATE OF STUDY: 10/12/2019 SCANNER: mCT RADIOPHARMACEUTICAL: 12.6 mCi F-18 Fluorodeoxyglucose (FDG) i.v. Injection site: Left wrist HISTORY: 24-year-old man with with posttransplant lymphoproliferative disorder after receiving orthotopic liver transplant 03/03/2009 for autoimmune hepatitis, who presents to hospital with fevers and pneumonia. He has a 3-4 week history of bilateral nontender cervical, periauricular and posterior auricular lymphadenopathy with associated night sweats and weight loss. The patient's prior PET/CT study dated 01/03/2019 demonstrated multiple new hypermetabolic nodes above and below the diaphragm, as well as diffusely increased marrow FDG uptake. Lymph node biopsy after that study demonstrated florid follicular hyperplasia with focally increased EBV-positive cells and marrow biopsy demonstrated no evidence of lymphoma. The patient has had no subsequent treatment for PTLD. This study is requested for detection of suspected recurrence, because of the new symptoms. Subsequent treatment strategy. TECHNIQUE: The patient's fasting blood glucose level, measured by glucometer before injection of FDG, was 78 mg/dL. MD-Gastroview was not given orally. After intravenous administration of FDG, noncontrast CT images were obtained for attenuation correction and for fusion with emission PET images to allow for anatomical localization of PET findings. Emission PET images were then obtained. The study was interpreted on the [employer] workstation. The mean liver SUV (reported for clinical quality assurance specialist purposes) is 2.0. The total scanned area was skull base to the proximal thighs. Images of the body were obtained starting 51 minutes after injection of tracer. COMPARISON: 01/03/2019 FINDINGS: There is FDG-avid bilateral cervical, supraclavicular, axillary, mediastinal, hilar, retroperitoneal, iliac, and inguinal lymphadenopathy, markedly increased as the prior examination. The most FDG-avid lesion is a left cervical lymph node with maximum SUV of 14.2. There is an FDG-avid peripheral opacity within the right upper lobe, new since the prior examination, with maximum SUV of 14.4. Additional, predominantly peripheral opacities within both lungs demonstrate mildly increased FDG uptake. These can be inflammatory/infectious in etiology, or alternatively, lymphomatous involvement. There has been interval resolution of a right lower lobe peripheral hypermetabolic opacity. Redemonstrated is diffusely increased increased bone marrow activity, greater than that of the liver. Additional CT findings: There is bilateral mucosal thickening within the maxillary and ethmoid sinuses. 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 IMPRESSION: 1. Interval increase in size and FDG avidity of diffuse lymphadenopathy above and below the diaphragm (considerably worse than on the prior study dated 01/03/2019), most consistent with disease progression. 2. Bilateral hypermetabolic pulmonary opacities, which can be infectious/inflammatory or represent lymphomatous involvement. 3. Assuming the diffuse lymphadenopathy represents lymphoma, 5PS=5 Dictated by: Sherin Gould M.D. :: The radiology attending physician has personally reviewed this study, and had reviewed and/or edited this written report and agrees with it. Electronically signed by: Jesús Mahan M.D. us Anita Gillespie MD IM PET PROCEDURES Final R esult * Tacrolimus level trough (10/12/2019 6:15 AM ARCH CUSHION SKIVING 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) Tacrolimus, trough 8.1 ng/mL [facility] Comment: Interpretive Data Testing performed by liquid chromatography-tandem mass spectrometry. ??Therapeutic concentrations vary depending on type of transplanted organ and time elapsed since transplant. ??Typical trough concentrations range from 5-15 ng/mL. ??This test was developed and its performance characteristics determined by the [facility] consistent with CLIA requirements. ??This test has not been cleared or approved by the [place] Food and Drug administration. ??Current interpretive data last reviewed 2019. Blood specimen (specimen) 10/12/2019 6:15 AM ARCH CUSHION SKIVING 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 10/12/2019 6:43 AM ARCH CUSHION SKIVING 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 Anita Gillespie MD LAB BLOOD ORDERABLES Final Result Performing Organization Address City/[facility] Co de Phone Number [facility] Department [place] [address] * Infection Prevention MRSA Only (Staphylococcus aureus) Culture Nasal (10/11/2019 8:32 AM ARCH CUSHION SKIVING 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) Report Final Report: Negative [facility] Nasal 10/11/2019 8:32 AM ARCH CUSHION SKIVING 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 10/11/2019 8:40 AM ARCH CUSHION SKIVING 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 Narrative [facility] - 10/12/2019 9:57 AM ARCH CUSHION SKIVING 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 Testing performed by [facility] ([phone]). us Anita Gillespie MD LAB MICROBIOLOGY - GENERAL ORDERABLES Final Result Performing Organization Address [facility] de Phone Number [facility] Department [place] [address] * (ABNORMAL) Differential, auto (10/11/2019 4:58 AM ARCH CUSHION SKIVING 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) Neutrophil abs 5.7 1.7 - 6.5 K/cumm [facility] Imm gran abs 0.5(H) 0.0 - 0.1 K/cumm [facility] Lymphocyte abs 4.2(H) 0.8 - 3.3 K/cumm [facility] Monocyte abs 2.8(H) 0.2 - 0.8 K/cumm [facility] Eosinophil abs 0.3 0.0 - 0.5 K/cumm [facility] Basophil abs 0.1 0.0 - 0.1 K/cumm [facility] Neutrophil pct 41.7 % [facility] Comment: Interpretive Data Percent cell count reference ranges are not reported, since discordance with absolute values may lead to misinterpretation of CBC data. Current Interpretive Data was last revised on 2018. Imm gran pct 3.5 % [facility] Comment: Interpretive Data Percent cell count reference ranges are not reported, since discordance with absolute values may lead to misinterpretation of CBC data. Current Interpretive Data was last revised on 2018. Lymphocyte pct 30.9 % [facility] Comment: Interpretive Data Percent cell count reference ranges are not reported, since discordance with absolute values may lead to misinterpretation of CBC data. Current Interpretive Data was last revised on 2018. Monocyte pct 20.6 % [facility] Comment: Interpretive Data Percent cell count reference ranges are not reported, since discordance with absolute values may lead to misinterpretation of CBC data. Current Interpretive Data was last revised on 2018. Eosinophil pct 2.3 % [facility] Comment: Interpretive Data Percent cell count reference ranges are not reported, since discordance with absolute values may lead to misinterpretation of CBC data. Current Interpretive Data was last revised on 2018. Basophil pct 1.0 % [facility] Comment: Interpretive Data Percent cell count reference ranges are not reported, since discordance with absolute values may lead to misinterpretation of CBC data. Current Interpretive Data was last revised on 2018. Blood specimen (specimen) 10/11/2019 4:58 AM ARCH CUSHION SKIVING 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 10/11/2019 5:13 AM ARCH CUSHION SKIVING 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 us Anita Gillespie MD LAB BLOOD ORDERABLES Final Result [facility] Department [place] [address] * Tacrolimus level trough (10/11/2019 4:58 AM ARCH CUSHION SKIVING 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) Tacrolimus, trough 6.5 ng/mL [facility] Comment: Interpretive Data Testing performed by liquid chromatography-tandem mass spectrometry. ??Therapeutic concentrations vary depending on type of transplanted organ and time elapsed since transplant. ??Typical trough concentrations range from 5-15 ng/mL. ??This test was developed and its performance characteristics determined by the [facility] consistent with CLIA requirements. ??This test has not been cleared or approved by the US Food and Drug administration. ??Current interpretive data last reviewed 2019. Blood specimen (specimen) 10/11/2019 4:58 AM ARCH CUSHION SKIVING 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 10/11/2019 5:13 AM ARCH CUSHION SKIVING 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 Anita Gillespie MD LAB BLOOD ORDERABLES Final Result [facility] One [facility] Department [place] [address] * (ABNORMAL) Comprehensive metabolic panel (10/11/2019 4:58 AM ARCH CUSHION SKIVING 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) Sodium 140 135 - 145 mmol/L [facility] Potassium, pl 4.7 3.3 - 4.9 mmol/L [facility] Chloride 109 97 - 110 mmol/L [facility] CO2 22 22 - 32 mmol/L [facility] Anion gap 9 2 - 15 mmol/L [facility] BUN 6(L) 8 - 25 mg/dL [facility] Creatinine 0.72(L) 0.80 - 1.30 mg/dL [facility] Glucose 88 70 - 199 mg/dL [facility] Comment: Interpretive Data Fasting glucose >/= 126 [...] 2017. Calcium 8.6 8.5 - 10.3 mg/dL [facility] Bilirubin, total 0.7 0.1 - 1.2 mg/dL [facility] Protein, pl 5.4(L) 6.5 - 8.5 g/dL [facility] Albumin 3.0(L) 3.5 - 5.0 g/dL [facility] Alk phos 315(H) 40 - 130 Units/L [facility] ALT 37 7 - 55 Units/L [facility] AST 43 10 - 50 Units/L [facility] Blood specimen (specimen) 10/11/2019 4:58 AM ARCH CUSHION SKIVING 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 10/11/2019 5:13 AM ARCH CUSHION SKIVING 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 us Anita Gillespie MD LAB BLOOD ORDERABLES Final Result Performing Organization Address City/[facility]/ZIP Co de Phone Number [facility] Department [place] [address] * (ABNORMAL) CBC with auto differential (10/11/2019 4:58 AM ARCH CUSHION SKIVING 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) Pathologist [facility] WBC 13.7(H) 3.8 - 9.9 K/cumm [facility] Hgb 13.7 13.0 - 17.5 g/dL [facility] Hct 39.4 38.9 - 50.3 % [facility] Plt 291 150 - 400 K/cumm [facility] MPV 9.7 9.1 - 12.3 fL [facility] RBC 4.19(L) 4.30 - 5.80 M/cumm [facility] MCV 94.0 81.3 - 96.4 fL [facility] MCH 32.7 27.1 - 33.3 pg [facility] MCHC 34.8 32.3 - 35.7 g/dL [facility] RDW CV 15.1(H) 11.1 - 14.9 % [facility] RDW SD 52.1(H) 35.7 - 48.1 fL [facility] NRBC abs 0.00 0.00 - 0.01 K/cumm [facility] Blood specimen (specimen) 10/11/2019 4:58 AM ARCH CUSHION SKIVING 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 10/11/2019 5:13 AM ARCH CUSHION SKIVING 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 us Anita Gillespie MD LAB BLOOD ORDERABLES Final Result Performing Organization Address City/[facility]/ZIP Co de Phone Number [facility] Department [place] [address] * (ABNORMAL) Urinalysis with reflex for neutropenic patient Urine, clean voided (10/10/2019 4:48 PM ARCH CUSHION SKIVING 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) Color, ur Yellow Yellow [facility] Clarity, ur Clear Clear [facility] Specific gravity, ur 1.005(L) 1.010 - 1.025 [facility] pH, urine 7 [facility] Protein, ur ql Negative Negative [facility] Glucose, ur ql Negative Negative [facility] Ketones, ur Negative Negative [facility] Bilirubin, ur Negative Negative [facility] Blood, ur Negative Negative [facility] Urobilinogen, ur <2.0 <2.0 mg/dL [facility] Nitrite, ur Negative Negative [facility] Leukocyte esterase, ur Negative Negative [facility] Urine, clean voided 10/10/2019 4:48 PM ARCH CUSHION SKIVING 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 10/10/2019 5:09 PM ARCH CUSHION SKIVING 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 Narrative [facility] - 10/10/2019 5:19 PM ARCH CUSHION SKIVING 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 ?? Urine pH is affected by diet, medications, systemic acid-base disturbances, and renal tubular function. ??pH may affect urinary stone formation. ??For example, urine pH below 6.0 may help reduce the tendency for calcium phosphate stones and pH greater than 6.0 may reduce the tendency for uric acid stone formation. Source: [facility] [employer]. Last revised 11-11-2017 us Batool Welch NP LAB MICROBIOLOGY - GENERAL ORDERABLES Final Result [facility] One [facility] Department [place] [address] * XR Chest Pa Lateral 2 Views (10/10/2019 3:02 PM ARCH CUSHION SKIVING 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) Anatomical Region Laterality Modality Body, Chest N/A Computed Radiogr aphy 10/10/2019 4:03 PM ARCH CUSHION SKIVING 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 Impressions 10/10/2019 4:04 PM ARCH CUSHION SKIVING MACHINE OPERATOR Comparison is made to chest radiograph dated 03/20/2019 at 10:17 AM. ??Multiple surgical clips project over the right upper quadrant, the left upper quadrant, and the right side of the neck. The heart and mediastinal contours are normal. ??There is unchanged hilar lymphadenopathy and probable mediastinal lymphadenopathy. There is a new focal opacity overlying the lateral right midlung that may represent pneumonia. ??No pneumothorax. Dictated by: Chaz Dodd M.D. The radiology attending physician has personally reviewed this study, and had reviewed and/or edited this written report and agrees with it. Electronically signed by: Magdi Knutson M.D. Narrative 10/10/2019 4:04 PM ARCH CUSHION SKIVING MACHINE OPERATOR EXAMINATION: 2 view chest radiograph Procedure Note Magdi Knutson MD - 10/10/2019 EXAMINATION: 2 view chest radiograph IMPRESSION: Comparison is made to chest radiograph dated 03/20/2019 at 10:17 AM. Multiple surgical clips project over the right upper quadrant, the left upper quadrant, and the right side of the neck. The heart and mediastinal contours are normal. There is unchanged hilar lymphadenopathy and probable mediastinal lymphadenopathy. There is a new focal opacity overlying the lateral right midlung that may represent pneumonia. No pneumothorax. Dictated by: Chaz Dodd M.D. The radiology attending physician has personally reviewed this study, and had reviewed and/or edited this written report and agrees with it. Electronically signed by: Magdi Knutson M.D. Batool Welch CARTOGRAPHY TECHNICIAN IMG XR PROCEDURES Final Re sult * Protime-INR (10/10/2019 2:41 PM ARCH CUSHION SKIVING MACHINE OPERATOR) PT 12.7 8.6 - 13.0 sec [facility] INR 1.2 0.8 - 1.2 [facility] Comment: Interpretive data Oral anticoagulant therapeutic ranges: Venous thromboembolism prophylaxis or treatment: 2.0-3.0 CARDIOLOGY Standard range: 2.0-3.0 High-intensity range: 2.5-3.5 Refer to indication-specific guidelines for appropriate target ranges for prosthetic heart valve replacement. Current interpretive data was last revised on 2019. Blood specimen (specimen) 10/10/2019 2:41 PM ARCH CUSHION SKIVING MACHINE OPERATOR 10/10/2019 3:46 PM ARCH CUSHION SKIVING MACHINE OPERATOR us Anita Gillespie MD LAB BLOOD ORDERABLES Final Result [facility] Department [place] [address] * (ABNORMAL) Differential, auto (10/10/2019 2:41 PM ARCH CUSHION SKIVING MACHINE OPERATOR) Neutrophil abs 6.0 1.7 - 6.5 K/cumm [facility] Imm gran abs 0.6(H) 0.0 - 0.1 K/cumm [facility] Lymphocyte abs 2.8 0.8 - 3.3 K/cumm [facility] Monocyte abs 3.0(H) 0.2 - 0.8 K/cumm [facility] Eosinophil abs 0.1 0.0 - 0.5 K/cumm [facility] Basophil abs 0.1 0.0 - 0.1 K/cumm [facility] Neutrophil pct 47.7 % [facility] Comment: Interpretive Data Percent cell count reference ranges are not reported, since discordance with absolute values may lead to misinterpretation of CBC data. Current Interpretive Data was last revised on 2018. Imm gran pct 4.6 % [facility] Comment: Interpretive Data Percent cell count reference ranges are not reported, since discordance with absolute values may lead to misinterpretation of CBC data. Current Interpretive Data was last revised on 2018. Lymphocyte pct 22.4 % [facility] Comment: Interpretive Data Percent cell count reference ranges are not reported, since discordance with absolute values may lead to misinterpretation of CBC data. Current Interpretive Data was last revised on 2018. Monocyte pct 23.6 % [facility] Comment: Interpretive Data Percent cell count reference ranges are not reported, since discordance with absolute values may lead to misinterpretation of CBC data. Current Interpretive Data was last revised on 2018. Eosinophil pct 0.7 % [facility] Comment: Interpretive Data Percent cell count reference ranges are not reported, since discordance with absolute values may lead to misinterpretation of CBC data. Current Interpretive Data was last revised on 2018. Basophil pct 1.0 % [facility] Comment: Interpretive Data Percent cell count reference ranges are not reported, since discordance with absolute values may lead to misinterpretation of CBC data. Current Interpretive Data was last revised on 2018. Blood specimen (specimen) 10/10/2019 2:41 PM ARCH CUSHION SKIVING MACHINE OPERATOR 10/10/2019 3:46 PM ARCH CUSHION SKIVING MACHINE OPERATOR Batool Welch CARTOGRAPHY TECHNICIAN LAB BLOOD ORDERABLES Final Result Performing Organization Address [facility] de Phone Number [facility] [place] [address] * aPTT (10/10/2019 2:41 PM ARCH CUSHION SKIVING MACHINE OPERATOR) Pathologist [facility] aPTT 30 25 - 37 sec [facility] Comment: Interpretive data Heparin therapeutic range: 60-90 seconds Range based on correlation with therapeutic heparin activity range of 0.3-0.7 units/ml. Current interpretive data was last revised on 2019. Blood specimen (specimen) 10/10/2019 2:41 PM ARCH CUSHION SKIVING MACHINE OPERATOR 10/10/2019 3:46 PM ARCH CUSHION SKIVING MACHINE OPERATOR Batool Welch CARTOGRAPHY TECHNICIAN LAB BLOOD ORDERABLES Final Result Performing Organization Address [facility] de Phone Number [facility] [place] [address] * Type and screen (10/10/2019 2:41 PM ARCH CUSHION SKIVING MACHINE OPERATOR) Pathologist [facility] Carol, indirect Negative [facility] Comment:Patient has previous antibody history ABO Rh A Positive [facility] Blood specimen (specimen) 10/10/2019 2:41 PM ARCH CUSHION SKIVING MACHINE OPERATOR 10/10/2019 3:51 PM ARCH CUSHION SKIVING MACHINE OPERATOR Narrative [facility] - 10/10/2019 5:10 PM ARCH CUSHION SKIVING MACHINE OPERATOR Has the patient had Daratumumab (Darzalex) in the past 6 months?->Unknown Batool Welch CARTOGRAPHY TECHNICIAN LAB BLOOD BANK TEST ORDERA BLES Final Result Performing Organization Address [facility] Phone Number [facility] One [facility] Department [place] [address] * (ABNORMAL) Respiratory pathogen PCR Nasopharyngeal (10/10/2019 2:41 PM ARCH CUSHION SKIVING MACHINE OPERATOR) Adenovirus DNA Detected(A) Not Detected [facility] Coronavirus 229E RNA Not Detected Not Detected [facility] Coronavirus HKU1 RNA Not Detected Not Detected [facility] Coronavirus NL63 RNA Not Detected Not Detected [facility] Coronavirus OC43 RNA Not Detected Not Detected [facility] Metapneumovirus RNA Not Detected Not Detected [facility] Rhinovirus/Enterov irus RNA Not Detected Not Detected [facility] Influenza A RNA Not Detected Not Detected [facility] Influenza B RNA Not Detected Not Detected [facility] Parainfluenza 1 RNA Not Detected Not Detected [facility] Parainfluenza 2 RNA Not Detected Not Detected [facility] Parainfluenza 3 RNA Not Detected Not Detected [facility] Parainfluenza 4 RNA Detected(A) Not Detected [facility] RSV RNA Not Detected Not Detected [facility] B. pertussis DNA Not Detected Not Detected [facility] C. pneumoniae DNA Not Detected Not Detected [facility] M. pneumoniae DNA Not Detected Not Detected [facility] B. parapertussis DNA Not Detected Not Detected [facility] Comment: The [employer] FilmArray Respiratory Panel (RP2) assay is a [...] FilmArray RP2 assay is FDA cleared for CARTOGRAPHY TECHNICIAN swabs. ??Additional sample types have been validated according to CLIA regulations. The performance characteristics of this assay have been determined by [facility] Infectious Disease Laboratory. Current interpretive data was last revised on 2018. Nasopharyngeal 10/10/2019 2: 41 PM ARCH CUSHION SKIVING MACHINE OPERATOR 10/10/2019 4:12 PM ARCH CUSHION SKIVING MACHINE OPERATOR Batool Welch CARTOGRAPHY TECHNICIAN LAB MICROBIOLOGY - GENERAL ORDERABLES Final Result Performing Organization Address [facility]/ZIP Co de Phone Number [facility] Department [place] [employer] [place] [address] * Phosphorus (10/10/2019 2:41 PM ARCH CUSHION SKIVING MACHINE OPERATOR) Phosphorus, pl 3.2 2.3 - 4.5 mg/dL [facility] Blood specimen (specimen) 10/10/2019 2:41 PM ARCH CUSHION SKIVING MACHINE OPERATOR 10/10/2019 3:46 PM ARCH CUSHION SKIVING MACHINE OPERATOR Batool Welch CARTOGRAPHY TECHNICIAN LAB BLOOD ORDERABLES Final Result Performing Organization Address City/[facility] Co de Phone Number [facility] Department [place] [address] * Magnesium (10/10/2019 2:41 PM ARCH CUSHION SKIVING MACHINE OPERATOR) Pathologist [facility] Magnesium 1.4 1.4 - 2.5 mg/dL [facility] Blood specimen (specimen) 10/10/2019 2:41 PM ARCH CUSHION SKIVING MACHINE OPERATOR 10/10/2019 3:46 PM ARCH CUSHION SKIVING MACHINE OPERATOR Batool Welch CARTOGRAPHY TECHNICIAN LAB BLOOD ORDERABLES Final Result Performing Organization Address [facility] Co de Phone Number [facility] Department [place] [address] * Lactate (10/10/2019 2:41 PM ARCH CUSHION SKIVING MACHINE OPERATOR) [facility] Lactate 1.5 0.7 - 2.0 mmol/L [facility] Blood specimen (specimen) 10/10/2019 2:41 PM ARCH CUSHION SKIVING MACHINE OPERATOR 10/10/2019 3:45 PM ARCH CUSHION SKIVING MACHINE OPERATOR Batool Welch CARTOGRAPHY TECHNICIAN LAB BLOOD ORDERABLES Final Result Performing Organization Address [facility] de Phone Number [facility] Department [place] [address] * (ABNORMAL) Comprehensive metabolic panel (10/10/2019 2:41 PM ARCH CUSHION SKIVING MACHINE OPERATOR) [facility] Sodium 137 135 - 145 mmol/L [facility] Potassium, pl 4.2 3.3 - 4.9 mmol/L [facility] Chloride 101 97 - 110 mmol/L [facility] CO2 24 22 - 32 mmol/L [facility] Anion gap 12 2 - 15 mmol/L [facility] BUN 9 8 - 25 mg/dL [facility] Creatinine 0.81 0.80 - 1.30 mg/dL [facility] Glucose 90 70 - 199 mg/dL [facility] Comment: Interpretive Data Fasting glucose >/= 126 [...] 2017. Calcium 9.1 8.5 - 10.3 mg/dL [facility] Bilirubin, total 0.8 0.1 - 1.2 mg/dL [facility] Protein, pl 6.2(L) 6.5 - 8.5 g/dL [facility] Albumin 3.6 3.5 - 5.0 g/dL [facility] Alk phos 383(H) 40 - 130 Units/L [facility] ALT 51 7 - 55 Units/L [facility] AST 61(H) 10 - 50 Units/L [facility] Blood specimen (specimen) 10/10/2019 2:41 PM ARCH CUSHION SKIVING MACHINE OPERATOR 10/10/2019 3:46 PM ARCH CUSHION SKIVING MACHINE OPERATOR Batool Welch CARTOGRAPHY TECHNICIAN LAB BLOOD ORDERABLES Final Result [facility] Department [place] [address] * (ABNORMAL) CBC with auto differential (10/10/2019 2:41 PM ARCH CUSHION SKIVING MACHINE OPERATOR) WBC 12.6(H) 3.8 - 9.9 K/cumm [facility] Hgb 13.9 13.0 - 17.5 g/dL [facility] Hct 40.4 38.9 - 50.3 % [facility] Plt 296 150 - 400 K/cumm [facility] MPV 10.0 9.1 - 12.3 fL [facility] RBC 4.35 4.30 - 5.80 M/cumm [facility] MCV 92.9 81.3 - 96.4 fL [facility] MCH 32.0 27.1 - 33.3 pg [facility] MCHC 34.4 32.3 - 35.7 g/dL [facility] RDW CV 14.8 11.1 - 14.9 % [facility] RDW SD 51.0(H) 35.7 - 48.1 fL [facility] NRBC abs 0.00 0.00 - 0.01 K/cumm [facility] Blood specimen (specimen) 10/10/2019 2:41 PM ARCH CUSHION SKIVING MACHINE OPERATOR 10/10/2019 3:46 PM ARCH CUSHION SKIVING MACHINE OPERATOR Batool Welch CARTOGRAPHY TECHNICIAN LAB BLOOD ORDERABLES Final Result [facility] Department [place] [address] * Blood culture Blood Peripheral (10/10/2019 2:41 PM ARCH CUSHION SKIVING MACHINE OPERATOR) Report Final Report: No growth [facility] Blood specimen (specimen) (Peripheral) 10/10/2019 2:41 PM ARCH CUSHION SKIVING MACHINE OPERATOR 10/10/2019 4:27 PM ARCH CUSHION SKIVING MACHINE OPERATOR Narrative [facility] - 10/16/2019 7:00 AM ARCH CUSHION SKIVING MACHINE OPERATOR 1. Blood cultures are incubated for [...] organism identification may be performed using the Xcedexigene Gram-Positive Blood Culture Assay. This assay detects microbial DNA in positive blood culture broth via hybridization of target DNA to capture oligonucleotides on a microarray. This assay has been cleared by the [place] Food and Drug Administration and its performance characteristics have been verified by the [facility]. 5. For questions about this culture, contact the Microbiology Laboratory at [phone]. Interpretive data was last revised on 2018. Batool Welch NP LAB MICROBIOLOGY - GENERAL ORDERABLES Final Result Performing Organization Address City/[facility]/ZIP Co de Phone Number [facility] Department [place] [address] * Blood culture Blood Peripheral (10/10/2019 2:41 PM ARCH CUSHION SKIVING MACHINE OPERATOR) Report Final Report: No growth [facility] Blood specimen (specimen) (Peripheral) 10/10/2019 2:41 PM ARCH CUSHION SKIVING MACHINE OPERATOR 10/10/2019 4:27 PM ARCH CUSHION SKIVING MACHINE OPERATOR Narrative [facility] - 10/16/2019 7:00 AM ARCH CUSHION SKIVING MACHINE OPERATOR 1. Blood cultures are incubated for [...] organism identification may be performed using the Xcedexigene Gram-Positive Blood Culture Assay. This assay detects microbial DNA in positive blood culture broth via hybridization of target DNA to capture oligonucleotides on a microarray. This assay has been cleared by the [place] Food and Drug Administration and its performance characteristics have been verified by the [facility]. 5. For questions about this culture, contact the Microbiology Laboratory at [phone]. Interpretive data was last revised on 2018. 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, unspecified site Lymphadenopathy Enlargement of lymph nodes History of liver transplant (CMS/HCC) (HCC) Liver replaced by transplant Community acquired pneumonia of right middle lobe of lung 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) documented in this encounter Administered Medications Inactive Administered Medications - up to 3 most recent administrations Medication Order MAR Action Action Date Dose Rate Site acetaminophen (TYLENOL) tablet 500 mg 500 mg, oral, Every 6 hours PRN, fever, Starting on Wed10/10/19 at 2007 azithromycin (ZITHROMAX) 500 mg/255 mL in sodium chloride 0.9% (premix) 500 mg 500 mg, intravenous, at 255 mL/hr, Administer over 60 Minutes, Every 24 hours scheduled, First dose (after last modification) on Wed10/11/19 at 2200, For 2 doses, Indications: Pneumonia, Hospital AcquiredIndications:Pneumon ia, Hospital Acquired New Bag 10/11/2019 10:25 PM ARCH CUSHION SKIVING MACHINE OPERATOR 500 mg 255 mL/h r azithromycin (ZITHROMAX) tablet 500 mg 500 mg, oral, Once, On Wed10/10/19 at 2040, For 1 dose, Indications: Pneumonia, Hospital AcquiredIndications:Pneumon ia, Hospital Acquired Given 10/10/2019 10:01 PM ARCH CUSHION SKIVING MACHINE OPERATOR 500 mg benzocaine-menthol (CHLORASEPTIC) lozenge 1 lozenge 1 lozenge, mouth/throat, Every 4 hours PRN, sore throat, Starting on Wed10/10/19 at 2031 cefepime (MAXIPIME) 1,000 mg/10 mL in sterile water (premix) 1,000 mg 1,000 mg, intravenous, at 20 mL/hr, Administer over 30 Minutes, Once, On Wed10/10/19 at 1645, For 1 dose, Indications: Upper Respiratory/HEENT InfectionIndications:Upper Respiratory/HEENT Infection New Bag 10/10/2019 4:42 PM ARCH CUSHION SKIVING MACHINE OPERATOR 1,000 mg 20 mL/hr cefepime (MAXIPIME) 2,000 mg/20 mL in sterile water (premix) 2,000 mg 2,000 mg, intravenous, at 40 mL/hr, Administer over 30 Minutes, Every 8 hours scheduled, First dose on Wed10/11/19 at 0845, Indications: Pneumonia, Hospital AcquiredIndications:Pneumon ia, Hospital Acquired New Bag 10/12/2019 2:45 AM ARCH CUSHION SKIVING MACHINE OPERATOR 2,000 mg 40 mL/hr New Bag 10/11/2019 5:08 PM ARCH CUSHION SKIVING MACHINE OPERATOR 2,000 mg 40 mL/hr New Bag 10/11/2019 9:55 AM ARCH CUSHION SKIVING MACHINE OPERATOR 2,000 mg 40 mL/hr dextromethorphan-guaiFENesin (ROBITUSSIN-DM) 2-20 mg/mL syrup 10 mL 10 mL, oral, 4 times daily PRN, cough, Starting on Wed10/10/19 at 2031 fludeoxyglucose F-18 (FDG) injection 12.5 millicurie 12.5 millicurie, intravenous, Once in imaging, radiopharmaceutical, Starting on Wed10/12/19 at 1325, For 1 dose Given 10/12/2019 1:23 PM ARCH CUSHION SKIVING MACHINE OPERATOR 12.55 millicuries levoFLOXacin (LEVAQUIN) tablet 750 mg 750 mg, oral, Daily (early AM), First dose on Wed10/12/19 at 0815, For 3 days, Give 2 hrs before or 2 hrs after MVI, antacids, or other products containing sucralfate, magnesium, aluminum, iron, or zinc. May be taken without regard to meals., Indications: Pneumonia, Hospital AcquiredIndications:Pneumonia, Hospital Acquired Given 10/13/2019 6:33 AM ARCH CUSHION SKIVING MACHINE OPERATOR 750 mg Given 10/12/2019 8:25 AM ARCH CUSHION SKIVING MACHINE OPERATOR 750 mg lidocaine (XYLOCAINE) 10 mg/mL (1 %) injection Code/trauma/sedation medication, Starting on Wed10/13/19 at 1157, Intra-Procedure (IR), Indications: Administration of Local AnesthesiaIndications:Administration of Local Anesthesia Given 10/13/2019 11:57 AM ARCH CUSHION SKIVING MACHINE OPERATOR 7 mL Left Axilla Given 10/13/2019 11:57 AM ARCH CUSHION SKIVING MACHINE OPERATOR 7 mL magnesium sulfate 4 g/100 mL in water (premix) 4 g 4 g, intravenous, Administer over 90 Minutes, Every 4 hours PRN, magnesium replacement, Starting on Wed10/11/19 at 0744, For magnesium level of 1.2-1.5 mg/dL, Indications: hypomagnesemiaIndications:hypomagn esemia magnesium sulfate 6 g in sodium chloride 0.9% 250 mL IVPB 6 g, intravenous, at 131 mL/hr, Administer over 120 Minutes, Every 4 hours PRN, magnesium replacement, Starting on Wed10/11/19 at 0744, For magnesium level less than 1.2 mg/dL and call/notify provider., Indications: hypomagnesemiaIndications:hypomagn esemia potassium chloride 40 mEq/520 mL in sodium chloride 0.9% (premix) 40 mEq 40 mEq, intravenous, at 130 mL/hr, Administer over 4 Hours, Every 4 hours PRN, potassium replacement, Starting on Wed10/11/19 at 0744, 40 mEq X1 dose for potassium less than 2.6 mmol/L, call prescriber for additional orders; 40 mEq X2 doses for potassium 2.6-2.9 mmol/L, stat potassium level after 2nd dose; 40 mEq X2 doses for potassium 3-3.1 mmol/L; 40 mEq X1 dose for potassium 3.2-3.5 mmol/L (may use oral if tolerated)., Indications: hypokalemiaIndications:hypokalemia potassium chloride ER (KLOR-CON) extended release tablet 40 mEq 40 mEq, oral, Every 4 hours PRN, potassium replacement, Starting on Wed10/11/19 at 0744, For potassium 3.2-3.5 mmol/L, give 40 mEq X1 dose (may use IV if oral not tolerated). Do not crush, chew, cut, dissolve, open or otherwise manipulate tablet/capsule., Indications: hypokalemiaIndications:hypokalemia sodium chloride 0.9% bolus 1,000 mL 1,000 mL, intravenous, at 500 mL/hr, Administer over 2 Hours, Once, On Wed10/10/19 at 1455, For 1 doseIndications:Dehydration New Bag 10/10/2019 2:30 PM ARCH CUSHION SKIVING MACHINE OPERATOR 1,000 mL 5 00 mL/hr sodium chloride 0.9% bolus 1,000 mL 1,000 mL, intravenous, Once, On Wed10/10/19 at 2115, For 1 dose New Bag 10/10/2019 10:01 PM ARCH CUSHION SKIVING MACHINE OPERATOR 1,000 mL sodium chloride 0.9% bolus 1,000 mL 1,000 mL, intravenous, at 500 mL/hr, Administer over 2 Hours, Once, On Wed10/11/19 at 0830, For 1 dose New Bag 10/11/2019 8:21 AM ARCH CUSHION SKIVING MACHINE OPERATOR 1,000 mL 500 mL/hr sodium chloride 0.9% flush 0.5-20 mL 0.5-20 mL, intra-catheter, Every 8 hours scheduled, First dose on Wed10/10/19 at 2200, Flush volume based on line type and size. Given 10/12/2019 8:50 PM ARCH CUSHION SKIVING MACHINE OPERATOR 10 mL Given 10/12/2019 3:41 PM ARCH CUSHION SKIVING MACHINE OPERATOR 10 mL Given 10/12/2019 5:37 AM ARCH CUSHION SKIVING MACHINE OPERATOR 10 mL sodium chloride 0.9% flush 0.5-20 mL 0.5-20 mL, intra-catheter, As needed, line care, Starting on Wed10/10/19 at 2004, Flush volume based on line type and size. Flush before and after each use. Given 10/11/2019 8:50 PM ARCH CUSHION SKIVING MACHINE OPERATOR 10 mL sodium chloride 0.9% infusion 125 mL/hr, intravenous, Continuous, Starting on Wed10/13/19 at 0115 New Bag 10/13/2019 9:03 AM ARCH CUSHION SKIVING MACHINE OPERATOR 125 mL/hr 125 mL/hr Rate/Dose Verify 10/13/2019 6:33 AM ARCH CUSHION SKIVING MACHINE OPERATOR 125 mL/hr 125 mL/ hr New Bag 10/13/2019 1:26 AM ARCH CUSHION SKIVING MACHINE OPERATOR 125 mL/hr 125 mL/hr tacrolimus (PROGRAF) capsule 0.5 mg 0.5 mg, oral, 2 times daily, First dose on Wed10/10/19 at 2100, Avoid grapefruit juice Given 10/13/2019 9:03 AM ARCH CUSHION SKIVING MACHINE OPERATOR 0.5 mg Given 10/12/2019 8:50 PM ARCH CUSHION SKIVING MACHINE OPERATOR 0.5 mg Given 10/12/2019 8:25 AM ARCH CUSHION SKIVING MACHINE OPERATOR 0.5 mg valGANciclovir (VALCYTE) tablet 450 mg 450 mg, oral, Daily, First dose on Wed10/10/19 at 2040, Do not crush, chew, cut, dissolve, open or otherwise manipulate tablet/capsule., Indications: Other (complete free text reason below), CMV ViremiaIndications:Other (complete free text reason below),CMV Viremia Given 10/13/2019 9:03 AM ARCH CUSHION SKIVING MACHINE OPERATOR 450 mg Given 10/12/2019 8:25 AM ARCH CUSHION SKIVING MACHINE OPERATOR 450 mg Given 10/11/2019 9:56 AM ARCH CUSHION SKIVING MACHINE OPERATOR 450 mg vancomycin 1,000 mg/200 mL in dextrose 5% (premix) 1,000 mg 1,000 mg, intravenous, Administer over 60 Minutes, Every 12 hours, First dose on Wed10/11/19 at 0845, Indications: Pneumonia, Hospital AcquiredIndications:Pneumonia, Hospital Acquired New Bag 10/11/2019 8:49 PM ARCH CUSHION SKIVING MACHINE OPERATOR 1,000 mg New Bag 10/11/2019 10:36 AM ARCH CUSHION SKIVING MACHINE OPERATOR 1,000 mg documented in this encounter Discontinued Medications Medication Sig Discontinue Reason Start Date End Da te levoFLOXacin (LEVAQUIN) 750 mg tabletIndications:Pne umonia, Hospital Acquired Take 1 tablet (750 mg total) by mouth philosophy faculty before breakfast for 2 doses Stop Taking at Discharge 10/13/2019 10/13/2019 tacrolimus (PROGRAF) 0.5 mg capsule 0.5 mg 2 (two) times a day Stop Taking at Discharge 10/13/2019 documented as of this encounter Active and Recently Administered Medications Times are shown in ARCH CUSHION SKIVING MACHINE OPERATOR. Scheduled Medication Order 10/11/2019 10/12/2019 10/13/2019 azithromycin (ZITHROMAX) 500 mg/255 mL in sodium chloride 0.9% (premix) 500 mg (CANCELED) 500 mg, intravenous, at 255 mL/hr, Administer over 60 Minutes, Every 24 hours scheduled, First dose (after last modification) on Wed10/11/19 at 2200, For 2 doses, Indications: Pneumonia, Hospital Acquired 2225 (New Bag - Provider: Lynn Watson RN)2325 (Stopped - Provider: Lynn Watson RN) cefepime (MAXIPIME) 2,000 mg/20 mL in sterile water (premix) 2,000 mg (CANCELED) 2,000 mg, intravenous, at 40 mL/hr, Administer over 30 Minutes, Every 8 hours scheduled, First dose on Wed10/11/19 at 0845, Indications: Pneumonia, Hospital Acquired 0955 (New Bag - Provider: Yang Grande)1029 (Stopped - Provider: Yang Grande)1708 (New Bag - Provider: Yang Grande)1938 (Stopped - Provider: Lynn Watson RN) 0245 (New Bag - Provider: Lynn Watson RN)0315 (Stopped - Provider: Yang Grande - Comment: Stopped by night RN) levoFLOXacin (LEVAQUIN) tablet 750 mg 750 mg, oral, Daily (early AM), First dose on Wed10/12/19 at 0815, For 3 days, Give 2 hrs before or 2 hrs after MVI, antacids, or other products containing sucralfate, magnesium, aluminum, iron, or zinc. May be taken without regard to meals., Indications: Pneumonia, Hospital Acquired 0825 (Given - Provider: Yang Grande) 0633 (Given - Provider: Bonita Caruso RN) sodium chloride 0.9% bolus 1,000 mL (COMPLETED) 1,000 mL, intravenous, at 500 mL/hr, Administer over 2 Hours, Once, On Wed10/11/19 at 0830, For 1 dose 0821 (New Bag - Provider: Yang Grande)1144 (Stopped - Provider: Yang Grande) sodium chloride 0.9% flush 0.5-20 mL 0.5-20 mL, intra-catheter, Every 8 hours scheduled, First dose on Wed10/10/19 at 2200, Flush volume based on line type and size. 0627 (Given - Provider: Luis Carlos Henley RN)1430 (Given - Provider: Yang Grande)2226 (Given - Provider: Lynn Watson RN) 0537 (Given - Provider: Lynn Watson RN)1541 (Given - Provider: Yang Grande)205 (Given - Provider: Bonita Caruso RN) 0633 (Not Given - Provider: Bonita Caruso RN - Reason: IV Infusing)1456 (Not Given - Provider: Conchis León RN - Reason: Loss of IV access) tacrolimus (PROGRAF) capsule 0.5 mg 0.5 mg, oral, 2 times daily, First dose on Wed10/10/19 at 2100, Avoid grapefruit juice 0824 (Given - Provider: Yang Grande)204 (Given - Provider: Lynn Watson RN) 0825 (Given - Provider: Yang Grande)205 (Given - Provider: Bonita Caruso RN) 0903 (Given - Provider: Conchis León, SHAILESH) valGANciclovir (VALCYTE) tablet 450 mg 450 mg, oral, Daily, First dose on Wed10/10/19 at 2040, Do not crush, chew, cut, dissolve, open or otherwise manipulate tablet/capsule., Indications: Other (complete free text reason below), CMV Viremia 0956 (Given - Provider: Yang Grande) 0825 (Given - Provider: Yang Grande) 0903 (Given - Provider: Conchis León, RN) vancomycin 1,000 mg/200 mL in dextrose 5% (premix) 1,000 mg (CANCELED) 1,000 mg, intravenous, Administer over 60 Minutes, Every 12 hours, First dose on Wed10/11/19 at 0845, Indications: Pneumonia, Hospital Acquired 1036 (New Bag - Provider: Yang Grande)1144 (Stopped - Provider: Yang Grande)204 (New Bag - Provider: Lynn Watson, SHAILESH)2149 (Stopped - Provider: Lynn Watson, SHAILESH) Continuous Medication Order 10/11/2019 10/12/2019 10/13/2019 sodium chloride 0.9% infusion 125 mL/hr, intravenous, Continuous, Starting on Wed10/13/19 at 0115 0126 (New Bag - Prov ider: Bonita aCruso, SHAILESH)0633 (Rate/Dose Verify - Provider: Bonita Caruso, SHAILESH)0903 (New Bag - Provider: Conchis León, RN)1302 (Stopped - Provider: Conchis León, RN) PRN Medication Order 10/11/2019 10/12/2019 10/13/2019 acetaminophen (TYLENOL) tablet 500 mg 500 mg, oral, Every 6 hours PRN, fever, Starting on Wed10/10/19 at 2007 benzocaine-menthol (CHLORASEPTIC) lozenge 1 lozenge 1 lozenge, mouth/throat, Every 4 hours PRN, sore throat, Starting on Wed10/10/19 at 2031 dextromethorphan-guaiFENe sin (ROBITUSSIN-DM) 2-20 mg/mL syrup 10 mL 10 mL, oral, 4 times daily PRN, cough, Starting on Wed10/10/19 at 2030 fludeoxyglucose F-18 (FDG) injection 12.5 millicurie (COMPLETED) 12.5 millicurie, intravenous, Once in imaging, radiopharmaceutical, Starting on Brenda 10/12/19 at 1325, For 1 dose 1323 (Given - Provider: Adina Arias RT) lidocaine (XYLOCAINE) 10 mg/mL (1 %) injection (COMPLETED) Code/trauma/sedation medication, Starting on Wed10/13/19 at 1157, Intra-Procedure (IR), Indications: Administration of Local Anesthesia 1157 (Given - Provider: Nikolai Vela MD)1157 (Given - Provider: Nikolai Vela MD) magnesium sulfate 4 g/100 mL in water (premix) 4 g 4 g, intravenous, Administer over 90 Minutes, Every 4 hours PRN, magnesium replacement, Starting on Wed10/11/19 at 0744, For magnesium level of 1.2-1.5 mg/dL, Indications: hypomagnesemia magnesium sulfate 6 g in sodium chloride 0.9% 250 mL IVPB 6 g, intravenous, at 131 mL/hr, Administer over 120 Minutes, Every 4 hours PRN, magnesium replacement, Starting on Wed10/11/19 at 0744, For magnesium level less than 1.2 mg/dL and call/notify provider., Indications: hypomagnesemia potassium chloride 40 mEq/520 mL in sodium chloride 0.9% (premix) 40 mEq 40 mEq, intravenous, at 130 mL/hr, Administer over 4 Hours, Every 4 hours PRN, potassium replacement, Starting on Wed10/11/19 at 0744, 40 mEq X1 dose for potassium less than 2.6 mmol/L, call prescriber for additional orders; 40 mEq X2 doses for potassium 2.6-2.9 mmol/L, stat potassium level after 2nd dose; 40 mEq X2 doses for potassium 3-3.1 mmol/L; 40 mEq X1 dose for potassium 3.2-3.5 mmol/L (may use oral if tolerated)., Indications: hypokalemia potassium chloride ER (KLOR-CON) extended release tablet 40 mEq 40 mEq, oral, Every 4 hours PRN, potassium replacement, Starting on Wed10/11/19 at 0744, For potassium 3.2-3.5 mmol/L, give 40 mEq X1 dose (may use IV if oral not tolerated). Do not crush, chew, cut, dissolve, open or otherwise manipulate tablet/capsule., Indications: hypokalemia sodium chloride 0.9% flush 0.5-20 mL 0.5-20 mL, intra-catheter, As needed, line care, Starting on Wed10/10/19 at 2004, Flush volume based on line type and size. Flush before and after each use. 2049 (Given - Provider: Lynn Watson RN) documented in this encounter Orders Medications Ordered That John ht Not Have Been Administered Count Last Ordered Date First Ordered Date azithromycin (ZITHROMAX) 500 mg/255 mL in sodium chloride 0.9% (premix) 500 mg 1 10/11/2019 magnesium sulfate 4 g/100 mL in water (premix) 4 g 1 10/11/2019 magnesium sulfate 6 g in sod ium chloride 0.9% 250 mL IVPB 1 10/11/2019 potassium chloride 40 mEq/52 0 mL in sodium chloride 0.9% (premix) 40 mEq 1 10/11/2019 potassium chloride ER (KLOR- CON) extended release tablet 40 mEq 1 10/11/2019 acetaminophen (TYLENOL) tablet 500 mg 1 08/2019 azithromycin (ZITHROMAX) tablet 250 mg 1 benzocaine-menthol (CHLORASE PTIC) lozenge 1 lozenge 1 10/10/2019 cefTRIAXone (ROCEPHIN) 2,000 mg/20 mL in sterile water (premix) 2,000 mg 1 10/10/2019 dextromethorphan-guaiFENesin (ROBITUSSIN-DM) 2-20 mg/mL syrup 10 mL 1 10/10/2019 sodium chloride 0.9% bolus 500 mL 1 019 Consult Count Last Ordered Date First Orde red Date IP CONSULT [facility] 1 019 CORE MEASURES Count Last Ordered Date First Ord ered Date REASON FOR NO VTE PROPHYLAXIS AT ADMISSION 1 10/10/2019 documented in this encounter Care Teams Retail Office Manager Relationship Specialty Start Date End Date Guero Colunga DO [address] [facility] [address] [place] [address] PCP - General Internal Medicine 03/22/19 04/18/23 Munira Rick, RN [address] [facility] [address] [place] [id number] [employer] 04/01/18 documented as of this encounter
--- OUTSIDE RECORDS SUMMARY | 2024-10-28 06:25 | XMS_ITS | Encounter Summary ---
Author Organization [facility] Address [address] [place] [address] Phone Care Team Providers Care Gamma Ray Operator Name Role Phone Munira Rick RN Unavailable [phone] Guero Colunga DO Primary Care Provider [phone] Encounter Details Date Type Department Care Team (Late st Contact Info) Description 07/22/2019 Orders Only [facility] [address] 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 Gender Identity Not on file Sexual Orientation Straight 08/22/2021 9: 23 AM CDT documented as of this encounter Plan of Treatment Scheduled Procedures Name Priority Associated Diagnoses Date/Ti me COLONOSCOPY Encounter for screening for colorectal cancer in high risk patient Family history of rectal cancer documented as of this encounter Procedures Procedure Name Priority Date/Time Associated Diagnosis Comments COPY(IES) SENT TO: Routine 07/22/2019 8: 47 AM CDT CMV DNA QN, PCR Routine 07/22/2019 8:47 AM CDT TACROLIMUS LEVEL, TROUGH Routine 07/22/2019 8:47 AM CDT CBC WITH AUTO DIFFERENTIAL Routine 07/22/2019 8:47 AM CDT GAMMA GT Routine 07/22/2019 8:47 AM CDT COMPREHENSIVE METABOLIC PANEL Routine 07/22/2019 8:47 AM CDT documented in this encounter Results * CMV DNA QN, PCR (07/22/2019 8:47 AM CDT) [facility] SOURCE BLOOD [facility] [[email or web address]] CMV DNA qn <200 IU/mL [facility] CMV DNA log IU/mL <2.30 Log IU/mL [facility] Comment: REFERENCE RANGE: CMV DNA, QN PCR: <200 IU/mL CMV DNA, QN PCR: <2.30 Log IU/mL This test was developed and its analytical performance characteristics have been determined by [facility]. It has not been cleared or approved by the U.S. Food and Drug Administration. This assay has been validated pursuant to the CLIA regulations and is used for clinical purposes. 07/22/2019 8:47 AM CDT 07/22/2019 8:48 AM CDT Narrative Resulting Agency Comment Performing Organization Information: ?Site ID: [id number] ?Name: [facility] ?Address: [address] [place] [id number] ?Director: Richie Rodriguez MD Theodore Gresham MD LAB MICROBIOLOGY - GENERAL ORDERABLES Final Result [facility] - [place], [place] * (ABNORMAL) Tacrolimus level trough (07/22/2019 8:47 AM CDT) [facility] Tacrolimus, highly Sensitive, LC/MS/MS 3.9(L) mcg/L [facility] Comment: No definitive therapeutic or toxic ranges have been established. Optimal blood drug levels are influenced by type of transplant, patient response, time post- transplant, co-administration of other drugs, and drug formulation. The following trough range is a suggested guideline: 5.0-20.0 mcg/L. This test was developed and its analytical performance characteristics have been determined by [facility]. It has not been cleared or approved by the FDA. This assay has been validated pursuant to the CLIA regulations and is used for clinical purposes. 07/22/2019 8:47 AM CDT 07/22/2019 8:48 AM CDT Narrative Resulting Agency Comment Performing Organization Information: ?Site ID: [place] ?Name: [facility] ?Address: [address] [place] [address] [place] [address] ?Director: Jason Buckner D.O., MPH Theodore Gresham MD LAB BLOOD ORDERABLES Final Result [facility] [place] * (ABNORMAL) Comprehensive metabolic panel (07/22/2019 8:47 AM CDT) [facility] Glucose 102(H) 65 - 99 mg/dL [facility] Comment: ? Fasting reference interval For someone without known diabetes, a glucose value between 100 and 125 mg/dL is consistent with prediabetes and should be confirmed with a follow-up test. BUN 11 7 - 25 mg/dL [facility] Creatinine 0.82 0.60 - 1.35 mg/dL [facility] [place] eGFR NON-AFR. JORDANIAN 122 > OR = 60 mL/min/1. 73m2 [facility] [place] EGFR 141 > OR = 60 mL/min/1. 73m2 [facility] [place] BUN/creat ratio NOT APPLICABLE 6 - 22 (calc) [facility] [place] Sodium 143 135 - 146 mmol/L [facility] [place] Potassium, pl 4.3 3.5 - 5.3 mmol/L [facility] [place] Chloride 108 98 - 110 mmol/L [facility] [place] CO2 28 20 - 32 mmol/L [facility] [place] Calcium 9.6 8.6 - 10.3 mg/dL [facility] [place] Protein, sr 5.8(L) 6.1 - 8.1 g/dL [facility] [place] Albumin 4.4 3.6 - 5.1 g/dL [facility] [place] GLOBULIN 1.4(L) 1.9 - 3.7 g/dL (calc) [facility] [place] Alb/glob ratio 3.1(H) 1.0 - 2.5 (calc) [facility] [place] Bilirubin, total 0.4 0.2 - 1.2 mg/dL [facility] [place] Alk phos 147(H) 40 - 115 U/L [facility] [place] AST 23 10 - 40 U/L [facility] [place] ALT (SGPT) 26 9 - 46 U/L [facility] [place] 07/22/2019 8:47 AM CDT 07/22/2019 8:48 AM CDT Narrative Resulting Agency Comment Performing Organization Information: ?Site ID: [id number] ?Name: [facility] ?Address: [address] [place] [address] ?Director: Jason Buckner D.O. MPH Theodore Gresham MD LAB BLOOD ORDERABLES Final Result [facility] [place] * (ABNORMAL) Gamma GT (07/22/2019 8:47 AM CDT) GGT 80(H) 3 - 70 U/L [facility] [place] 07/22/2019 8:47 AM CDT 07/22/2019 8:48 AM CDT Narrative Resulting Agency Comment Performing Organization Information: ?Site ID: [place] ?Name: [facility] ?Address: [address] [place] [address] ?Director: Jason Buckner D.O., MPH Theodore Gresham MD LAB BLOOD ORDERABLES Final Result [facility] [place] * (ABNORMAL) CBC with auto differential (07/22/2019 8:47 AM CDT) WBC 6.6 3.8 - 10.8 Thousand/ uL [facility] [place] RBC, POC 4.67 4.20 - 5.80 Million/u L [facility] [place] Hgb 15.6 13.2 - 17.1 g/dL [facility] [place] Hct 45.1 38.5 - 50.0 % [facility] [place] MCV 96.6 80.0 - 100.0 fL [facility] [place] MCH 33.4(H) 27.0 - 33.0 pg [facility] [place] MCHC 34.6 32.0 - 36.0 g/dL [facility] [place] Rdw 14.2 11.0 - 15.0 % [facility] [place] Platelets 408(H) 140 - 400 Thousand/ uL [facility] [place] MPV 10.0 7.5 - 12.5 fL [facility] [place] Neutrophils, abs 1,525 1,500 - 7,800 cells/uL [facility] [place] Lymphocytes, abs 3,967(H) 850 - 3,900 cells/uL [facility] [place] Monocyte abs 1,016(H) 200 - 950 cells/uL [facility] [place] Eosinophils, abs 40 15 - 500 cells/uL [facility] [place] Basophils, abs 53 0 - 200 cells/uL [facility] [place] Neutrophils 23.1 % [facility] [place] Lymphocyte pct 60.1 % [facility] [place] Monocytes 15.4 % [facility] [place] Eosinophils 0.6 % [facility] [place] Basophils 0.8 % [facility] [place] 07/22/2019 8:47 AM CDT 07/22/2019 8:48 AM CDT Narrative Resulting Agency Comment Performing Organization Information: ?Site ID: [place] ?Name: [facility] ?Address: [address] [place], [place] [address] [address] ?Director: Jason Buckner D.O., MPH Theodore Gresham MD LAB BLOOD ORDERABLES Final Result [facility] [place] * COPY(IES) SENT TO: (07/22/2019 8:47 AM CDT) COPY(IES) SENT TO: [facility] Comment: ?[facility] - COPY TO [facility] ?[address] [facility] [address] ?[place] [address] 07/22/2019 8:47 AM CDT 07/22/2019 8:48 AM CDT Theodore Gresham MD LAB BLOOD ORDERABLES Final Result [facility] documented in this encounter Visit Diagnoses Not on filedocumented in this encounter Care Teams Gamma Ray Operator Relationship Specialty Start Date End Date Guero Colunga DO [address] [place] [address] PCP - General Internal Medicine 03/22/19 04/18/23 Munira Rick, RN [address] [place] [address] Credit Operations Processor 04/01/18 documented as of this encounter
--- OUTSIDE RECORDS SUMMARY | 2024-10-28 06:25 | XMS_ITS | Encounter Summary ---
Author Organization [facility] Address [address] [place] [address] Phone Care Team Providers Care Cloth Shearing Supervisor Name Role Phone Munira Rick RN Unavailable [phone] Guero Colunga DO Primary Care Provider [phone] Encounter Details Date Type Department Care Team (Late st Contact Info) Description 03/22/2019 Telephone [facility] Oncology [address] [facility] 7th [place] [address] [place] [address] Samreen Greene RN Social History Tobacco Use Types Packs/Day Years Used Date Smoking Tobacco: Never Smokeless Tobacco: Never Sex and Gender Information Value Date Recorded Sex Assigned at Not on file 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 This was previously in the 300's, so it is looking much better. He will continue to follow with Dr. Gresham. He knows to call with any questions or concerns in the interim. documented in this encounter Plan of Treatment Scheduled Procedures Name Priority Associated Diagnoses Date/Ti me COLONOSCOPY Encounter for screening for colorectal cancer in high risk patient Family history of rectal cancer documented as of this encounter Visit Diagnoses Not on filedocumented in this encounter Care Teams Cloth Shearing Supervisor Relationship Specialty Start Date End Date Guero Colunga DO [address] [address] PCP - General Internal Medicine 03/22/19 04/18/23 Munira Rick RN [address] [facility] [address] [place] [address] Product Safety Specialist 04/01/18 documented as of this encounter
--- OUTSIDE RECORDS SUMMARY | 2024-10-28 06:25 | XMS_ITS | Encounter Summary ---
Author Organization [facility] Healthcare Address [address] [place] [address] Care Team Providers Care Video Tape Transferrer Name Role Phone Munira Rick RN Unavailable [phone] Guero Colunga DO Primary Care Provider [phone] Encounter Details Date Type Department Care Team (Late st Contact Info) Description 06/23/2019 Telephone 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 Will be notified via fax of response. documented in this encounter Plan of Treatment Scheduled Procedures Name Priority Associated Diagnoses Date/Ti me COLONOSCOPY Encounter for screening for colorectal cancer in high risk patient Family history of rectal cancer documented as of this encounter Visit Diagnoses Not on filedocumented in this encounter Care Teams Video Tape Transferrer Relationship Specialty Start Date End Date Guero Colunga DO [address] [facility] [address] [place] [address] PCP - General Internal Medicine 03/22/19 04/18/23 Munira Rick, RN [address] [facility] [address] [place] [address] Hydroelectric Plant Maintainer 04/01/18 documented as of this encounter
--- OUTSIDE RECORDS SUMMARY | 2024-10-28 06:25 | XMS_ITS | Encounter Summary ---
Author Organization [facility] Healthcare Address [address] [place] [address] Care Team Providers Care Top Frame Maker Name Role Phone Kali Cruz MD Primary Care Provider [phone] Munira Rick RN Unavailable [phone] Encounter Details Date Type Department Care Team (Late st Contact Info) Description 02/13/[address] 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 Gender Identity Not on file Sexual Orientation Straight 08/22/2021 9: 23 AM CDT documented as of this encounter Ordered Prescriptions Prescription Sig Dispense Quantity Refills Last Filled Start Date End Date 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 Sent valcyte tolocal pharmacy. documented in this encounter Plan of Treatment [...] 0.5 mg capsuleIndications:Histo ry of liver transplant (CMS/HCC) (HCC) Take 1 capsule (0.5 mg total) by mouth 2 (two) times a day. Reorder 11/29/2018 02/13/2019 valGANciclovir (VALCYTE) 450 mg tabletIndications:CMV VIremia Take 1 tablet (450 mg total) by mouth 2 (two) times a day. Reorder 12/06/2018 02/13/2019 documented as of this encounter Care Teams Top Frame Maker Relationship Specialty Start Date End Date Kali Cruz MD [address] [place] [address] PCP - General 04/09/17 03/21/19 Munira Rick, RN [address] [facility] [address] [place] [address] Home Health Speech Therapist 04/01/18 documented as of this encounter
--- OUTSIDE RECORDS SUMMARY | 2024-10-28 06:25 | XMS_ITS | Encounter Summary ---
Author Organization [facility] Address [address] [place] [address] Phone Care Team Providers Care Manager Home Healthcare Name Role Phone Munira Rick RN Unavailable [phone] Guero Colunga DO Primary Care Provider [phone] Encounter Details Date Type Department Care Team (Late st Contact Info) Description 10/04/2019 8:00 AM [employer] Office Visit [facility] G[facility] Medicine 8th [place] [address] [place] [id number] Theodore Gresham MD [address] [facility] [address] [place] [address] History of liver transplant (CMS/HCC) (Primary Dx) Social History Tobacco Use Types Packs/Day Years Used Date Smoking Tobacco: Never Smokeless Tobacco: Never Sex and Gender Information Value Date Recorded Sex Assigned at Not on file Legal Sex Male 6:28 AM [employer] Gender Identity Not on file Sexual Orientation Straight 08/22/2021 9: 23 AM CDT documented as of this encounter Last Filed Vital Signs Vital Sign Reading Time Taken Comments Blood Pressure 103/70 10/04/2019 7:48 AM [employer] Pulse 81 10/04/2019 7:48 AM [employer] Temperature 37.2 ??C (98.9 ??F) 10/04/2019 7:48 AM CS T Respiratory Rate - - Oxygen Saturation - - Inhaled Oxygen Concentration - - Weight 57.7 kg (127 lb 3.2 oz) 10/04/2019 7:48 A M [employer] Height 172.7 cm (5' 8 ) 10/04/2019 7:48 AM [employer] Body Mass Index 19.34 10/04/2019 7:48 AM [employer] documented in this encounter Progress Notes * Chapo Osorio MD - 10/04/2019 8:00 AM CST Images from the original note were not included. [facility] DEPART[facility] OF INTERNAL MEDICINE DIVISION OF GASTROENTEROLOGY [facility] Mailing Address: [facility], [place] [address] Primary Care Provider: Guero Colunga DO Reason For Visit: Follow-up orthotopic liver transplant HPI: Beka Nichols is a 24 y.o. 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 Subjective fevers/chills/night sweats last 3 days. He notes bilateral cervical lymph node over the last 2-3 weeks while his mother notes the very large right anterior, cervical node only for the lastweek. There is pain only in the setting of neck rotation. There is no associated weight loss. Regarding his CMV, he remains on valcyte twice daily dosing. He notes 1-2 missed doses of his tacrolimus over the last 3-months without financial difficulty affording his medications. He appropriately holds his morning dose when he is due for troughs; however, he is unclear on what his exact frequency of safety- labs should be. They were seen in clinic today with his mother. They had no questions by the end of the visit. Review of Systems: On complete review of systems, all other systems are negative. Problem List: Patient Active Problem List Diagnosis ??? High grade B-cell lymphoma (CMS/HCC) ??? Cytomegalovirus infection (CMS/HCC) ??? History of liver transplant (CMS/HCC) ??? Idiopathic thrombocytopenic purpura (CMS/HCC) ??? 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 Autoimmune hepatitis (CMS/HCC) ??? Hypogammaglobulinemia (CMS/HCC) ??? Neutropenia associated with autoimmune disease (CMS/HCC) ??? Immunocompromised patient (CMS/HCC) ??? Healthcare-associated pneumonia ??? Diffuse lymphadenopathy ??? USP current use of immunosuppressive drug Allergy History: No Known Allergies Current Medications: Current Outpatient Medications Medication Sig Dispense Refill ??? tacrolimus (PROGRAF) 0.5 mg capsule 0.5 mg 2 (two) times a day ??? valGANciclovir (VALCYTE) 450 mg tablet Take 1 tablet (450 mg total) by mouth daily 30 tablet 2 ??? tacrolimus (PROGRAF) 0.5 mg capsule Take 1 capsule (0.5 mg total) by mouth 2 (two) times a day 180 capsule 3 No current facility-administered medications for this visit. Social History: Social History Socioeconomic History ??? Marital status: Single Spouse name: Not on file ??? Number of children: Not on file ??? Years of education: Not on file ??? Highest education level: Not on file Occupational History ??? Not on file Social Needs ??? Financial resource strain: Not on file ??? Food insecurity: Worry: Not on file Inability: Not on file ??? Transportation needs: Medical: Not on file Non-medical: Not on file Tobacco Use ??? Smoking status: Never Smoker ??? Smokeless tobacco: Never Used Substance and Sexual Activity ??? Alcohol use: Not on file Comment: occassional ??? Drug use: Not Currently ??? Sexual activity: Not on file Lifestyle ??? Physical activity: Days per week: Not on file Minutes per session: Not on file ??? Stress: Not on file Relationships ??? Social connections: Talks on phone: Not on file Gets together: Not on file Attends mormonism service: Not on file Active member of club or organization: Not on file Attends meetings of clubs or organizations: Not on file Relationship status: Not on file ??? Intimate partner violence: Fear of current or ex partner: Not on file Emotionally abused: Not on file Physically abused: Not on file Forced sexual activity: Not on file Other Topics Concern ??? Not on file Social History Narrative Living Situation: Residential institution 10/05/17 (Added by [employer] [facility]) Family History: Family History Problem Relation Age of Onset ??? Rectal cancer Mother Rectal cancer - (Added by [employer]) ??? Diabetes type II Sister Family history of type 2 diabetes mellitus - (Added by [employer]) ??? Anesthesia problems Other Physical Exam: BP 103/70 Pulse 81 Temp 37.2 ??C (98.9 ??F) Ht 172.7 cm (5' 8 ) Wt 57.7 kg (127 lb 3.2 oz) BMI 19.34 kg/m?? General: well nourished, no acute distress HEENT: no oral ulcers, mucous membranes moist, no temporal wasting Ocular: no scleral icterus, not injected Lymphatics: hard right superior anterior cervical lymph node; no axillary or supraclavicular lymphadenopathy Cardiac: pulse is of a regular rate and rhythm, no lower extremity edema Pulmonary: on room air, breathing is unlabored Abdomen: Dara-kourtney scar, splenectomy scar; otherwise the abdomen is soft, non-distended, non-tender, no hepatosplenomegaly, no distended abdominal veins Extremities: warm and well perfused, no clubbing Neurologic: awake and alert, no focal deficit, no asterixis Psych: mood is euthymic, conversation is appropriate Dermatologic: no rash or wound appreciated, skin is not jaundiced Labs: Lab Results Component Value Date HEPBSAG Nonreactive 11/30/2017 HEPCAB Nonreactive 11/30/2017 FERRITIN 366 04/04/2017 Lab on 10/04/2019 Component Date Value Ref Range Status ??? WBC 10/04/2019 16.8* 3.8 - 9.8 K/cumm Final ??? Hgb 10/04/2019 15.2 13.8 - 17.2 g/dL Final ??? Hct 10/04/2019 45.2 40.7 - 50.3 % Final ??? Plt 10/04/2019 313 140 - 440 K/cumm Final ??? MPV 10/04/2019 7.3 6.8 - 10.4 fL Final ??? RBC 10/04/2019 4.65 4.50 - 5.70 M/cumm Final ??? MCV 10/04/2019 97.3 80.0 - 97.6 fL Final ??? MCH 10/04/2019 32.6 26.7 - 33.7 pg Final ??? MCHC 10/04/2019 33.5 32.7 - 35.5 g/dL Final ??? RDW CV 10/04/2019 14.5 11.8 - 14.6 % Final ??? NRBC abs 10/04/2019 0.00 0.00 - 0.01 K/cumm Final ??? Neutrophil abs 10/04/2019 9.5* 1.8 - 6.6 K/cumm Final ??? Lymphocyte abs 10/04/2019 3.4* 1.2 - 3.3 K/cumm Final ??? Monocyte abs 10/04/2019 3.3* 0.2 - 1.2 K/cumm Final ??? Eosinophil abs 10/04/2019 0.3 0.0 - 0.5 K/cumm Final ??? Basophil abs 10/04/2019 0.1 0.0 - 0.2 K/cumm Final ??? Neutrophil pct 10/04/2019 57.0 % Final ??? Lymphocyte pct 10/04/2019 20.3 % Final ??? Monocyte pct 10/04/2019 19.9 % Final ??? Eosinophil pct 10/04/2019 2.0 % Final ??? Basophil pct 10/04/2019 0.8 % Final Orders Only on 07/22/2019 Component Date Value Ref Range Status ??? COPY(IES) SENT TO: 07/22/2019 Final ??? WBC 07/22/2019 6.6 3.8 - 10.8 Thousand/uL Final ??? RBC, POC 07/22/2019 4.67 4.20 - 5.80 Million/uL Final ??? Hgb 07/22/2019 15.6 13.2 - 17.1 g/dL Final ??? Hct 07/22/2019 45.1 38.5 - 50.0 % Final ??? MCV 07/22/2019 96.6 80.0 - 100.0 fL Final ??? MCH 07/22/2019 33.4* 27.0 - 33.0 pg Final ??? MCHC 07/22/2019 34.6 32.0 - 36.0 g/dL Final ??? Rdw 07/22/2019 14.2 11.0 - 15.0 % Final ??? Platelets 07/22/2019 408* 140 - 400 Thousand/uL Final ??? MPV 07/22/2019 10.0 7.5 - 12.5 fL Final ??? Neutrophils, abs 07/22/2019 1,525 1,500 - 7,800 cells/uL Final ??? Lymphocytes, abs 07/22/2019 3,967* 850 - 3,900 cells/uL Final ??? Monocyte abs 07/22/2019 1,016* 200 - 950 cells/uL Final ??? Eosinophils, abs 07/22/2019 40 15 - 500 cells/uL Final ??? Basophils, abs 07/22/2019 53 0 - 200 cells/uL Final ??? Neutrophils 07/22/2019 23.1 % Final ??? Lymphocyte pct 07/22/2019 60.1 % Final ??? Monocytes 07/22/2019 15.4 % Final ??? Eosinophils 07/22/2019 0.6 % Final ??? Basophils 07/22/2019 0.8 % Final ??? GGT 07/22/2019 80* 3 - 70 U/L Final ??? Glucose 07/22/2019 102* 65 - 99 mg/dL Final ??? BUN 07/22/2019 11 7 - 25 mg/dL Final ??? Creatinine 07/22/2019 0.82 0.60 - 1.35 mg/dL Final ? ? eGFR NON-AFR. VIETNAMESE 07/22/2019 122 > OR = 60 mL/min/1.73m2 Final ? ? EGFR 07/22/2019 141 > OR = 60 mL/min/1.73m2 Final ??? BUN/creat ratio 07/22/2019 NOT APPLICABLE 6 - 22 (calc) Final ??? Sodium 07/22/2019 143 135 - 146 mmol/L Final ??? Potassium, pl 07/22/2019 4.3 3.5 - 5.3 mmol/L Final ??? Chloride 07/22/2019 108 98 - 110 mmol/L Final ??? CO2 07/22/2019 28 20 - 32 mmol/L Final ??? Calcium 07/22/2019 9.6 8.6 - 10.3 mg/dL Final ??? Protein, sr 07/22/2019 5.8* 6.1 - 8.1 g/dL Final ??? Albumin 07/22/2019 4.4 3.6 - 5.1 g/dL Final ??? GLOBULIN 07/22/2019 1.4* 1.9 - 3.7 g/dL (calc) Final ??? Alb/glob ratio 07/22/2019 3.1* 1.0 - 2.5 (calc) Final ??? Bilirubin, total 07/22/2019 0.4 0.2 - 1.2 mg/dL Final ??? Alk phos 07/22/2019 147* 40 - 115 U/L Final ??? AST 07/22/2019 23 10 - 40 U/L Final ??? ALT (SGPT) 07/22/2019 26 9 - 46 U/L Final ??? Tacrolimus, Highly Sensitive, LC/M* 07/22/2019 3.9* mcg/L Final ??? SOURCE 07/22/2019 BLOOD Final ? ? CMV DNA, QN REAL TIME PCR 07/22/2019 <200 IU/mL Final ? ? CMV DNA, QN PCR 07/22/2019 <2.30 Log IU/mL Final Lab on 06/21/2019 Component Date Value Ref Range Status ??? Lactate dehydrogenase (LDH) 06/21/2019 240 100 - 250 Units/L Final ??? Sodium 06/21/2019 143 135 - 145 mmol/L Final ??? Potassium, pl 06/21/2019 4.6 3.3 - 4.9 mmol/L Final ??? Chloride 06/21/2019 108 97 - 110 mmol/L Final ??? CO2 06/21/2019 30 22 - 32 mmol/L Final ??? Anion gap 06/21/2019 5 2 - 15 mmol/L Final ??? BUN 06/21/2019 8 8 - 25 mg/dL Final ??? Creatinine 06/21/2019 1.07 0.80 - 1.30 mg/dL Final ??? Glucose 06/21/2019 92 70 - 199 mg/dL Final ??? Calcium 06/21/2019 9.0 8.5 - 10.3 mg/dL Final ??? Bilirubin, total 06/21/2019 0.3 0.1 - 1.2 mg/dL Final ??? Protein, pl 06/21/2019 5.8* 6.5 - 8.5 g/dL Final ??? Albumin 06/21/2019 3.8 3.5 - 5.0 g/dL Final ??? Alk phos 06/21/2019 188* 40 - 130 Units/L Final ??? ALT 06/21/2019 35 7 - 55 Units/L Final ??? AST 06/21/2019 30 10 - 50 Units/L Final ??? WBC 06/21/2019 16.3* 3.8 - 9.8 K/cumm Final ??? Hgb 06/21/2019 16.6 13.8 - 17.2 g/dL Final ??? Hct 06/21/2019 47.7 40.7 - 50.3 % Final ??? Plt 06/21/2019 374 140 - 440 K/cumm Final ??? MPV 06/21/2019 7.3 6.8 - 10.4 fL Final ??? RBC 06/21/2019 4.92 4.50 - 5.70 M/cumm Final ??? MCV 06/21/2019 96.9 80.0 - 97.6 fL Final ??? MCH 06/21/2019 33.8* 26.7 - 33.7 pg Final ??? MCHC 06/21/2019 34.9 32.7 - 35.5 g/dL Final ??? RDW CV 06/21/2019 14.5 11.8 - 14.6 % Final ??? NRBC abs 06/21/2019 0.01 0.00 - 0.01 K/cumm Final ??? CMV DNA 06/21/2019 Detected* Final ??? CMV DNA IU/mL 06/21/2019 1,706 IUnits/mL Final ??? CMV DNA log IU/mL 06/21/2019 3.23 log IUnits/mL Final ??? Neutrophil abs 06/21/2019 9.1* 1.8 - 6.6 K/cumm Final ??? Lymphocyte abs 06/21/2019 4.0* 1.2 - 3.3 K/cumm Final ??? Monocyte abs 06/21/2019 2.6* 0.2 - 1.2 K/cumm Final ??? Eosinophil abs 06/21/2019 0.6* 0.0 - 0.5 K/cumm Final ??? Basophil abs 06/21/2019 0.1 0.0 - 0.2 K/cumm Final ??? Neutrophil pct 06/21/2019 55.6 % Final ??? Lymphocyte pct 06/21/2019 24.5 % Final ??? Monocyte pct 06/21/2019 15.9 % Final ??? Eosinophil pct 06/21/2019 3.4 % Final ??? Basophil pct 06/21/2019 0.6 % Final Lab on 03/22/2019 Component Date Value Ref Range Status ??? Lactate dehydrogenase (LDH) 03/22/2019 174 100 - 250 Units/L Final ??? Sodium 03/22/2019 140 135 - 145 mmol/L Final ??? Potassium, pl 03/22/2019 4.4 3.3 - 4.9 mmol/L Final ??? Chloride 03/22/2019 105 97 - 110 mmol/L Final ??? CO2 03/22/2019 28 22 - 32 mmol/L Final ??? Anion gap 03/22/2019 7 2 - 15 mmol/L Final ??? BUN 03/22/2019 17 8 - 25 mg/dL Final ??? Creatinine 03/22/2019 0.91 0.80 - 1.30 mg/dL Final ??? Glucose 03/22/2019 85 70 - 199 mg/dL Final ??? Calcium 03/22/2019 9.7 8.5 - 10.3 mg/dL Final ??? Bilirubin, total 03/22/2019 0.3 0.1 - 1.2 mg/dL Final ??? Protein, pl 03/22/2019 6.5 6.5 - 8.5 g/dL Final ??? Albumin 03/22/2019 4.3 3.5 - 5.0 g/dL Final ??? Alk phos 03/22/2019 197* 40 - 130 Units/L Final ??? ALT 03/22/2019 37 7 - 55 Units/L Final ??? AST 03/22/2019 27 10 - 50 Units/L Final ??? WBC 03/22/2019 9.6 3.8 - 9.8 K/cumm Final ??? Hgb 03/22/2019 16.2 13.8 - 17.2 g/dL Final ??? Hct 03/22/2019 47.0 40.7 - 50.3 % Final ??? Plt 03/22/2019 585* 140 - 440 K/cumm Final ??? MPV 03/22/2019 7.1 6.8 - 10.4 fL Final ??? RBC 03/22/2019 4.80 4.50 - 5.70 M/cumm Final ??? MCV 03/22/2019 98.0* 80.0 - 97.6 fL Final ??? MCH 03/22/2019 33.7 26.7 - 33.7 pg Final ??? MCHC 03/22/2019 34.4 32.7 - 35.5 g/dL Final ??? RDW CV 03/22/2019 14.3 11.8 - 14.6 % Final ??? NRBC abs 03/22/2019 0.00 0.00 - 0.01 K/cumm Final ??? Neutrophil abs 03/22/2019 6.0 1.8 - 6.6 K/cumm Final ??? Lymphocyte abs 03/22/2019 2.5 1.2 - 3.3 K/cumm Final ??? Monocyte abs 03/22/2019 0.8 0.2 - 1.2 K/cumm Final ??? Eosinophil abs 03/22/2019 0.1 0.0 - 0.5 K/cumm Final ??? Basophil abs 03/22/2019 0.1 0.0 - 0.2 K/cumm Final ??? Neutrophil pct 03/22/2019 63.0 % Final ??? Lymphocyte pct 03/22/2019 26.2 % Final ??? Monocyte pct 03/22/2019 8.4 % Final ??? Eosinophil pct 03/22/2019 1.6 % Final ??? Basophil pct 03/22/2019 0.8 % Final Admission on 03/10/2019, Discharged on 03/10/2019 Component Date Value Ref Range Status ??? WBC 03/10/2019 14.5* 3.8 - 9.9 K/cumm Final ??? Hgb 03/10/2019 16.6 13.0 - 17.5 g/dL Final ??? Hct 03/10/2019 47.8 38.9 - 50.3 % Final ??? Plt 03/10/2019 233 150 - 400 K/cumm Final ??? MPV 03/10/2019 11.7 9.1 - 12.3 fL Final ??? RBC 03/10/2019 5.05 4.30 - 5.80 M/cumm Final ??? MCV 03/10/2019 94.7 81.3 - 96.4 fL Final ??? MCH 03/10/2019 32.9 27.1 - 33.3 pg Final ??? MCHC 03/10/2019 34.7 32.3 - 35.7 g/dL Final ??? RDW CV 03/10/2019 14.1 11.1 - 14.9 % Final ??? RDW SD 03/10/2019 49.1* 35.7 - 48.1 fL Final ??? NRBC abs 03/10/2019 0.00 0.00 - 0.01 K/cumm Final ??? Sodium 03/10/2019 141 135 - 145 mmol/L Final ??? Potassium, pl 03/10/2019 4.7 3.3 - 4.9 mmol/L Final ??? Chloride 03/10/2019 109 97 - 110 mmol/L Final ??? CO2 03/10/2019 24 22 - 32 mmol/L Final ??? Anion gap 03/10/2019 8 2 - 15 mmol/L Final ??? BUN 03/10/2019 7* 8 - 25 mg/dL Final ??? Creatinine 03/10/2019 0.91 0.80 - 1.30 mg/dL Final ??? Glucose 03/10/2019 94 70 - 199 mg/dL Final ??? Calcium 03/10/2019 9.4 8.5 - 10.3 mg/dL Final ??? Sepsis Lactate 03/10/2019 1.7 0.7 - 2.0 mmol/L Final ??? aPTT 03/10/2019 28.4 25.0 - 37.0 sec Final ??? PT 03/10/2019 11.8 8.5 - 13.0 sec Final ??? INR 03/10/2019 1.10 0.80 - 1.21 Final ??? Neutrophil abs 03/10/2019 9.2* 1.7 - 6.5 K/cumm Final ??? Imm gran abs 03/10/2019 0.5* 0.0 - 0.1 K/cumm Final ??? Lymphocyte abs 03/10/2019 2.6 0.8 - 3.3 K/cumm Final ??? Monocyte abs 03/10/2019 2.0* 0.2 - 0.8 K/cumm Final ??? Eosinophil abs 03/10/2019 0.0 0.0 - 0.5 K/cumm Final ??? Basophil abs 03/10/2019 0.1 0.0 - 0.1 K/cumm Final ??? Neutrophil pct 03/10/2019 63.5 % Final ??? Imm gran pct 03/10/2019 3.7 % Final ??? Lymphocyte pct 03/10/2019 18.1 % Final ??? Monocyte pct 03/10/2019 13.7 % Final ??? Eosinophil pct 03/10/2019 0.2 % Final ??? Basophil pct 03/10/2019 0.8 % Final ??? Creatinine POC 03/10/2019 0.5* 0.7 - 1.3 mg/dL Final Admission on 01/03/2019, Discharged on 01/06/2019 Component Date Value Ref Range Status ??? Sodium 01/03/2019 135 135 - 145 mmol/L Final ??? Potassium, pl 01/03/2019 3.8 3.3 - 4.9 mmol/L Final ??? Chloride 01/03/2019 101 97 - 110 mmol/L Final ??? CO2 01/03/2019 23 22 - 32 mmol/L Final ??? Anion gap 01/03/2019 11 2 - 15 mmol/L Final ??? BUN 01/03/2019 10 8 - 25 mg/dL Final ??? Creatinine 01/03/2019 0.73* 0.80 - 1.30 mg/dL Final ??? Glucose 01/03/2019 108 70 - 199 mg/dL Final ??? Calcium 01/03/2019 8.6 8.5 - 10.3 mg/dL Final ??? Bilirubin, total 01/03/2019 0.8 0.1 - 1.2 mg/dL Final ??? Protein, pl 01/03/2019 5.9* 6.5 - 8.5 g/dL Final ??? Albumin 01/03/2019 3.6 3.5 - 5.0 g/dL Final ??? Alk phos 01/03/2019 334* 40 - 130 Units/L Final ??? ALT 01/03/2019 59* 7 - 55 Units/L Final ??? AST 01/03/2019 31 10 - 50 Units/L Final ??? Magnesium 01/03/2019 1.6 1.4 - 2.5 mg/dL Final ??? PT 01/03/2019 12.9 8.5 - 13.0 sec Final ??? INR 01/03/2019 1.20 0.80 - 1.21 Final ??? aPTT 01/03/2019 28.8 25.0 - 37.0 sec Final ??? WBC 01/03/2019 16.3* 3.8 - 9.9 K/cumm Final ??? Hgb 01/03/2019 13.2 13.0 - 17.5 g/dL Final ??? Hct 01/03/2019 37.3* 38.9 - 50.3 % Final ??? Plt 01/03/2019 400 150 - 400 K/cumm Final ??? MPV 01/03/2019 10.1 9.1 - 12.3 fL Final ??? RBC 01/03/2019 3.94* 4.30 - 5.80 M/cumm Final ??? MCV 01/03/2019 94.7 81.3 - 96.4 fL Final ??? MCH 01/03/2019 33.5* 27.1 - 33.3 pg Final ??? MCHC 01/03/2019 35.4 32.3 - 35.7 g/dL Final ??? RDW CV 01/03/2019 13.7 11.1 - 14.9 % Final ??? RDW SD 01/03/2019 47.6 35.7 - 48.1 fL Final ??? NRBC abs 01/03/2019 0.00 0.00 - 0.01 K/cumm Final ??? CMV DNA 01/03/2019 Not Detected Final ??? Report 01/03/2019 Final Value:Final Report: Negative for Jose De La Cruz Virus ??? Organism 01/03/2019 NEGATIVE FOR JOSE DE LA CRUZ VIRUS Final ??? Direct Specimen Exam 01/04/2019 Final Value:Stain: Few squamous epithelial cells seen. Abundant polymorphonuclear leukocytes seen. Moderate Mixed bacterial ellie seen on gram stain. ??? Report 01/04/2019 Final Value:Final Report: Growth indicates upper respiratory ellie. ??? Organism 01/04/2019 GROWTH INDICATES UPPER RESPIRATORY ELLIE. Final ??? Report 01/03/2019 Final Value:Final Report: No growth ??? Report 01/03/2019 Final Value:Final Report: No growth ??? Neutrophil abs 01/03/2019 8.7* 1.7 - 6.5 K/cumm Final ??? Imm gran abs 01/03/2019 0.6* 0.0 - 0.1 K/cumm Final ??? Lymphocyte abs 01/03/2019 3.4* 0.8 - 3.3 K/cumm Final ??? Monocyte abs 01/03/2019 3.4* 0.2 - 0.8 K/cumm Final ??? Eosinophil abs 01/03/2019 0.1 0.0 - 0.5 K/cumm Final ??? Basophil abs 01/03/2019 0.1 0.0 - 0.1 K/cumm Final ??? Neutrophil pct 01/03/2019 53.5 % Final ??? Imm gran pct 01/03/2019 3.7 % Final ??? Lymphocyte pct 01/03/2019 20.8 % Final ??? Monocyte pct 01/03/2019 21.1 % Final ??? Eosinophil pct 01/03/2019 0.5 % Final ??? Basophil pct 01/03/2019 0.4 % Final ??? Leukemia/Lymphoma Result 01/04/2019 See separate Surgical Pathology report. Final ??? HIV 1/2 Ab + p24 Ag 01/03/2019 Nonreactive Nonreactive Final ??? Tacrolimus, trough 01/04/2019 5.1 ng/mL Final ??? Sodium 01/04/2019 138 135 - 145 mmol/L Final ??? Potassium, pl 01/04/2019 4.8 3.3 - 4.9 mmol/L Final ??? Chloride 01/04/2019 103 97 - 110 mmol/L Final ??? CO2 01/04/2019 25 22 - 32 mmol/L Final ??? Anion gap 01/04/2019 10 2 - 15 mmol/L Final ??? BUN 01/04/2019 8 8 - 25 mg/dL Final ??? Creatinine 01/04/2019 0.75* 0.80 - 1.30 mg/dL Final ??? Glucose 01/04/2019 88 70 - 199 mg/dL Final ??? Calcium 01/04/2019 9.4 8.5 - 10.3 mg/dL Final ??? WBC 01/04/2019 17.0* 3.8 - 9.9 K/cumm Final ??? Hgb 01/04/2019 14.5 13.0 - 17.5 g/dL Final ??? Hct 01/04/2019 42.2 38.9 - 50.3 % Final ??? Plt 01/04/2019 437* 150 - 400 K/cumm Final ??? MPV 01/04/2019 10.1 9.1 - 12.3 fL Final ??? RBC 01/04/2019 4.41 4.30 - 5.80 M/cumm Final ??? MCV 01/04/2019 95.7 81.3 - 96.4 fL Final ??? MCH 01/04/2019 32.9 27.1 - 33.3 pg Final ??? MCHC 01/04/2019 34.4 32.3 - 35.7 g/dL Final ??? RDW CV 01/04/2019 13.6 11.1 - 14.9 % Final ??? RDW SD 01/04/2019 48.4* 35.7 - 48.1 fL Final ??? NRBC abs 01/04/2019 0.00 0.00 - 0.01 K/cumm Final ??? Neutrophil abs 01/04/2019 10.7* 1.7 - 6.5 K/cumm Final ??? Imm gran abs 01/04/2019 0.2* 0.0 - 0.1 K/cumm Final ??? Lymphocyte abs 01/04/2019 2.5 0.8 - 3.3 K/cumm Final ??? Monocyte abs 01/04/2019 3.4* 0.2 - 0.8 K/cumm Final ??? Eosinophil abs 01/04/2019 0.1 0.0 - 0.5 K/cumm Final ??? Basophil abs 01/04/2019 0.1 0.0 - 0.1 K/cumm Final ??? Neutrophil pct 01/04/2019 62.7 % Final ??? Imm gran pct 01/04/2019 1.5 % Final ??? Lymphocyte pct 01/04/2019 14.8 % Final ??? Monocyte pct 01/04/2019 19.9 % Final ??? Eosinophil pct 01/04/2019 0.6 % Final ??? Basophil pct 01/04/2019 0.5 % Final ??? Phosphorus, pl 01/04/2019 2.8 2.3 - 4.5 mg/dL Final ??? Uric acid 01/04/2019 3.0 3.0 - 8.0 mg/dL Final ??? Uric acid 01/05/2019 3.5 3.0 - 8.0 mg/dL Final ??? Lactate dehydrogenase (LDH) 01/05/2019 232 100 - 250 Units/L Final ??? Phosphorus, pl 01/05/2019 3.3 2.3 - 4.5 mg/dL Final ??? WBC 01/05/2019 12.4* 3.8 - 9.9 K/cumm Final ??? Hgb 01/05/2019 13.8 13.0 - 17.5 g/dL Final ??? Hct 01/05/2019 39.9 38.9 - 50.3 % Final ??? Plt 01/05/2019 411* 150 - 400 K/cumm Final ??? MPV 01/05/2019 10.3 9.1 - 12.3 fL Final ??? RBC 01/05/2019 4.17* 4.30 - 5.80 M/cumm Final ??? MCV 01/05/2019 95.7 81.3 - 96.4 fL Final ??? MCH 01/05/2019 33.1 27.1 - 33.3 pg Final ??? MCHC 01/05/2019 34.6 32.3 - 35.7 g/dL Final ??? RDW CV 01/05/2019 14.2 11.1 - 14.9 % Final ??? RDW SD 01/05/2019 49.6* 35.7 - 48.1 fL Final ??? NRBC abs 01/05/2019 0.00 0.00 - 0.01 K/cumm Final ??? Sodium 01/05/2019 140 135 - 145 mmol/L Final ??? Potassium, pl 01/05/2019 4.5 3.3 - 4.9 mmol/L Final ??? Chloride 01/05/2019 104 97 - 110 mmol/L Final ??? CO2 01/05/2019 25 22 - 32 mmol/L Final ??? Anion gap 01/05/2019 11 2 - 15 mmol/L Final ??? BUN 01/05/2019 10 8 - 25 mg/dL Final ??? Creatinine 01/05/2019 0.79* 0.80 - 1.30 mg/dL Final ??? Glucose 01/05/2019 83 70 - 199 mg/dL Final ??? Calcium 01/05/2019 9.0 8.5 - 10.3 mg/dL Final ??? Vancomycin, trough 01/05/2019 4.7* 10.0 - 20.9 mcg/mL Final ??? Differential 01/05/2019 Manual Final ??? Cells Counted 01/05/2019 117 Final ??? Neutrophil abs 01/05/2019 8.0* 1.7 - 6.5 K/cumm Final ??? Imm gran abs 01/05/2019 0.2* 0.0 - 0.1 K/cumm Final ??? Lymphocyte abs 01/05/2019 2.2 0.8 - 3.3 K/cumm Final ??? Monocyte abs 01/05/2019 1.7* 0.2 - 0.8 K/cumm Final ??? Eosinophil abs 01/05/2019 0.2 0.0 - 0.5 K/cumm Final ??? Neutrophil pct 01/05/2019 65.0 % Final ??? Lymphocyte pct 01/05/2019 11.1 % Final ??? Monocyte pct 01/05/2019 13.7 % Final ??? Eosinophil pct 01/05/2019 1.7 % Final ??? Neutrophilic metamyelocytes 01/05/2019 0.9* 0.0 - 0.0 % Final ??? Promyelocyte 01/05/2019 0.8* 0.0 - 0.0 % Final ??? Variant lymphs 01/05/2019 6.8* 0.0 - 0.0 % Final ??? PT 01/05/2019 11.8 8.5 - 13.0 sec Final ??? INR 01/05/2019 1.10 0.80 - 1.21 Final ??? aPTT 01/05/2019 31.7 25.0 - 37.0 sec Final ??? WBC 01/05/2019 11.8* 3.8 - 9.9 K/cumm Final ??? Hgb 01/05/2019 15.6 13.0 - 17.5 g/dL Final ??? Hct 01/05/2019 44.9 38.9 - 50.3 % Final ??? Plt 01/05/2019 457* 150 - 400 K/cumm Final ??? MPV 01/05/2019 10.2 9.1 - 12.3 fL Final ??? RBC 01/05/2019 4.71 4.30 - 5.80 M/cumm Final ??? MCV 01/05/2019 95.3 81.3 - 96.4 fL Final ??? MCH 01/05/2019 33.1 27.1 - 33.3 pg Final ??? MCHC 01/05/2019 34.7 32.3 - 35.7 g/dL Final ??? RDW CV 01/05/2019 14.2 11.1 - 14.9 % Final ??? RDW SD 01/05/2019 49.7* 35.7 - 48.1 fL Final ??? NRBC abs 01/05/2019 0.00 0.00 - 0.01 K/cumm Final ??? Neutrophil abs 01/05/2019 7.3* 1.7 - 6.5 K/cumm Final ??? Imm gran abs 01/05/2019 0.3* 0.0 - 0.1 K/cumm Final ??? Lymphocyte abs 01/05/2019 2.1 0.8 - 3.3 K/cumm Final ??? Monocyte abs 01/05/2019 1.9* 0.2 - 0.8 K/cumm Final ??? Eosinophil abs 01/05/2019 0.1 0.0 - 0.5 K/cumm Final ??? Basophil abs 01/05/2019 0.1 0.0 - 0.1 K/cumm Final ??? Neutrophil pct 01/05/2019 61.8 % Final ??? Imm gran pct 01/05/2019 2.3 % Final ??? Lymphocyte pct 01/05/2019 17.9 % Final ??? Monocyte pct 01/05/2019 16.2 % Final ??? Eosinophil pct 01/05/2019 1.0 % Final ??? Basophil pct 01/05/2019 0.8 % Final ??? WBC 01/06/2019 12.8* 3.8 - 9.9 K/cumm Final ??? Hgb 01/06/2019 13.9 13.0 - 17.5 g/dL Final ??? Hct 01/06/2019 39.6 38.9 - 50.3 % Final ??? Plt 01/06/2019 410* 150 - 400 K/cumm Final ??? MPV 01/06/2019 10.1 9.1 - 12.3 fL Final ??? RBC 01/06/2019 4.21* 4.30 - 5.80 M/cumm Final ??? MCV 01/06/2019 94.1 81.3 - 96.4 fL Final ??? MCH 01/06/2019 33.0 27.1 - 33.3 pg Final ??? MCHC 01/06/2019 35.1 32.3 - 35.7 g/dL Final ??? RDW CV 01/06/2019 14.0 11.1 - 14.9 % Final ??? RDW SD 01/06/2019 49.0* 35.7 - 48.1 fL Final ??? NRBC abs 01/06/2019 0.00 0.00 - 0.01 K/cumm Final ??? Magnesium 01/06/2019 1.8 1.4 - 2.5 mg/dL Final ??? Phosphorus, pl 01/06/2019 3.3 2.3 - 4.5 mg/dL Final ??? Uric acid 01/06/2019 3.0 3.0 - 8.0 mg/dL Final ??? Neutrophil abs 01/06/2019 7.4* 1.7 - 6.5 K/cumm Final ??? Imm gran abs 01/06/2019 0.3* 0.0 - 0.1 K/cumm Final ??? Lymphocyte abs 01/06/2019 2.2 0.8 - 3.3 K/cumm Final ??? Monocyte abs 01/06/2019 2.6* 0.2 - 0.8 K/cumm Final ??? Eosinophil abs 01/06/2019 0.2 0.0 - 0.5 K/cumm Final ??? Basophil abs 01/06/2019 0.0 0.0 - 0.1 K/cumm Final ??? Neutrophil pct 01/06/2019 57.9 % Final ??? Imm gran pct 01/06/2019 2.6 % Final ??? Lymphocyte pct 01/06/2019 17.2 % Final ??? Monocyte pct 01/06/2019 20.1 % Final ??? Eosinophil pct 01/06/2019 1.8 % Final ??? Basophil pct 01/06/2019 0.4 % Final ??? Sodium 01/06/2019 138 135 - 145 mmol/L Final ??? Potassium, pl 01/06/2019 4.9 3.3 - 4.9 mmol/L Final ??? Chloride 01/06/2019 106 97 - 110 mmol/L Final ??? CO2 01/06/2019 25 22 - 32 mmol/L Final ??? Anion gap 01/06/2019 7 2 - 15 mmol/L Final ??? BUN 01/06/2019 8 8 - 25 mg/dL Final ??? Creatinine 01/06/2019 0.74* 0.80 - 1.30 mg/dL Final ??? Glucose 01/06/2019 87 70 - 199 mg/dL Final ??? Calcium 01/06/2019 8.9 8.5 - 10.3 mg/dL Final ??? Leukemia/Lymphoma Result 01/06/2019 See separate Surgical Pathology report. Final Clinical Support on 12/28/2018 Component Date Value Ref Range Status ??? WBC 12/28/2018 12.6* 3.8 - 9.8 K/cumm Final ??? Hgb 12/28/2018 15.2 13.8 - 17.2 g/dL Final ??? Hct 12/28/2018 44.2 40.7 - 50.3 % Final ??? Plt 12/28/2018 405 140 - 440 K/cumm Final ??? MPV 12/28/2018 7.7 6.8 - 10.4 fL Final ??? RBC 12/28/2018 4.52 4.50 - 5.70 M/cumm Final ??? MCV 12/28/2018 97.8* 80.0 - 97.6 fL Final ??? MCH 12/28/2018 33.6 26.7 - 33.7 pg Final ??? MCHC 12/28/2018 34.4 32.7 - 35.5 g/dL Final ??? RDW CV 12/28/2018 14.0 11.8 - 14.6 % Final ??? NRBC abs 12/28/2018 0.00 0.00 - 0.01 K/cumm Final ??? Sodium 12/28/2018 137 135 - 145 mmol/L Final ??? Potassium, pl 12/28/2018 4.5 3.3 - 4.9 mmol/L Final ??? Chloride 12/28/2018 103 97 - 110 mmol/L Final ??? CO2 12/28/2018 29 22 - 32 mmol/L Final ??? Anion gap 12/28/2018 5 2 - 15 mmol/L Final ??? BUN 12/28/2018 11 8 - 25 mg/dL Final ??? Creatinine 12/28/2018 0.88 0.80 - 1.30 mg/dL Final ??? Glucose 12/28/2018 91 70 - 199 mg/dL Final ??? Calcium 12/28/2018 9.3 8.5 - 10.3 mg/dL Final ??? Bilirubin, total 12/28/2018 0.4 0.1 - 1.2 mg/dL Final ??? Protein, pl 12/28/2018 6.3* 6.5 - 8.5 g/dL Final ??? Albumin 12/28/2018 4.1 3.5 - 5.0 g/dL Final ??? Alk phos 12/28/2018 304* 40 - 130 Units/L Final ??? ALT 12/28/2018 52 7 - 55 Units/L Final ??? AST 12/28/2018 29 10 - 50 Units/L Final ??? Lactate dehydrogenase (LDH) 12/28/2018 193 100 - 250 Units/L Final ??? CMV DNA 12/28/2018 Not Detected Final ??? Tacrolimus, trough 12/28/2018 3.8 ng/mL Final ??? WBC 12/28/2018 12.6* 3.8 - 9.8 K/cumm Final ??? Hgb 12/28/2018 15.2 13.8 - 17.2 g/dL Final ??? Hct 12/28/2018 43.5 40.7 - 50.3 % Final ??? Plt 12/28/2018 406 140 - 440 K/cumm Final ??? MPV 12/28/2018 7.7 6.8 - 10.4 fL Final ??? RBC 12/28/2018 4.44* 4.50 - 5.70 M/cumm Final ??? MCV 12/28/2018 97.9* 80.0 - 97.6 fL Final ??? MCH 12/28/2018 34.2* 26.7 - 33.7 pg Final ??? MCHC 12/28/2018 35.0 32.7 - 35.5 g/dL Final ??? RDW CV 12/28/2018 14.1 11.8 - 14.6 % Final ??? NRBC abs 12/28/2018 0.00 0.00 - 0.01 K/cumm Final ??? Neutrophil abs 12/28/2018 8.8* 1.8 - 6.6 K/cumm Final ??? Lymphocyte abs 12/28/2018 1.9 1.2 - 3.3 K/cumm Final ??? Monocyte abs 12/28/2018 1.8* 0.2 - 1.2 K/cumm Final ??? Eosinophil abs 12/28/2018 0.2 0.0 - 0.5 K/cumm Final ??? Basophil abs 12/28/2018 0.0 0.0 - 0.2 K/cumm Final ??? Neutrophil pct 12/28/2018 69.3 % Final ??? Lymphocyte pct 12/28/2018 14.7 % Final ??? Monocyte pct 12/28/2018 14.4 % Final ??? Eosinophil pct 12/28/2018 1.3 % Final ??? Basophil pct 12/28/2018 0.3 % Final ??? Neutrophil abs 12/28/2018 8.9* 1.8 - 6.6 K/cumm Final ??? Lymphocyte abs 12/28/2018 1.8 1.2 - 3.3 K/cumm Final ??? Monocyte abs 12/28/2018 1.7* 0.2 - 1.2 K/cumm Final ??? Eosinophil abs 12/28/2018 0.2 0.0 - 0.5 K/cumm Final ??? Basophil abs 12/28/2018 0.0 0.0 - 0.2 K/cumm Final ??? Neutrophil pct 12/28/2018 70.4 % Final ??? Lymphocyte pct 12/28/2018 14.2 % Final ??? Monocyte pct 12/28/2018 13.8 % Final ??? Eosinophil pct 12/28/2018 1.2 % Final ??? Basophil pct 12/28/2018 0.4 % Final Orders Only on 11/04/2018 Component Date Value Ref Range Status ??? COPY(IES) SENT TO: 11/04/2018 Final ??? WBC 11/04/2018 7.1 3.8 - 10.8 Thousand/uL Final ??? RBC, POC 11/04/2018 4.58 4.20 - 5.80 Million/uL Final ??? Hgb 11/04/2018 15.6 13.2 - 17.1 g/dL Final ??? Hct 11/04/2018 44.4 38.5 - 50.0 % Final ??? MCV 11/04/2018 96.9 80.0 - 100.0 fL Final ??? MCH 11/04/2018 34.1* 27.0 - 33.0 pg Final ??? MCHC 11/04/2018 35.1 32.0 - 36.0 g/dL Final ??? Rdw 11/04/2018 14.6 11.0 - 15.0 % Final ??? Platelets 11/04/2018 464* 140 - 400 Thousand/uL Final ??? MPV 11/04/2018 9.9 7.5 - 12.5 fL Final ??? Neutrophils, abs 11/04/2018 2,606 1,500 - 7,800 cells/uL Final ??? Lymphocytes, abs 11/04/2018 2,620 850 - 3,900 cells/uL Final ??? Monocyte abs 11/04/2018 1,690* 200 - 950 cells/uL Final ??? Eosinophils, abs 11/04/2018 142 15 - 500 cells/uL Final ??? Basophils, abs 11/04/2018 43 0 - 200 cells/uL Final ??? Neutrophils 11/04/2018 36.7 % Final ??? Lymphocyte pct 11/04/2018 36.9 % Final ??? Monocytes 11/04/2018 23.8 % Final ??? Eosinophils 11/04/2018 2.0 % Final ??? Basophils 11/04/2018 0.6 % Final ??? GGT 11/04/2018 209* 3 - 70 U/L Final ??? Glucose 11/04/2018 91 65 - 139 mg/dL Final ??? BUN 11/04/2018 11 7 - 25 mg/dL Final ??? Creatinine 11/04/2018 0.90 0.60 - 1.35 mg/dL Final ? ? eGFR NON-AFR. VIET[place]ESE 11/04/2018 118 > OR = 60 mL/min/1.73m2 Final ? ? EGFR 11/04/2018 137 > OR = 60 mL/min/1.73m2 Final ??? BUN/creat ratio 11/04/2018 NOT APPLICABLE 6 - 22 (calc) Final ??? Sodium 11/04/2018 142 135 - 146 mmol/L Final ??? Potassium, pl 11/04/2018 4.1 3.5 - 5.3 mmol/L Final ??? Chloride 11/04/2018 106 98 - 110 mmol/L Final ??? CO2 11/04/2018 26 20 - 32 mmol/L Final ??? Calcium 11/04/2018 9.6 8.6 - 10.3 mg/dL Final ??? Protein, sr 11/04/2018 5.8* 6.1 - 8.1 g/dL Final ??? Albumin 11/04/2018 4.4 3.6 - 5.1 g/dL Final ??? GLOBULIN 11/04/2018 1.4* 1.9 - 3.7 g/dL (calc) Final ??? Alb/glob ratio 11/04/2018 3.1* 1.0 - 2.5 (calc) Final ??? Bilirubin, total 11/04/2018 0.7 0.2 - 1.2 mg/dL Final ??? Alk phos 11/04/2018 236* 40 - 115 U/L Final ??? AST 11/04/2018 32 10 - 40 U/L Final ??? ALT (SGPT) 11/04/2018 48* 9 - 46 U/L Final ??? SOURCE 11/04/2018 BLOOD Final ? ? CMV DNA, QN REAL TIME PCR 11/04/2018 <200 IU/mL Final ? ? CMV DNA, QN PCR 11/04/2018 <2.30 Log IU/mL Final ??? Tacrolimus, Highly Sensitive, LC/M* 11/04/2018 6.0 mcg/L Final Lab on 10/18/2018 Component Date Value Ref Range Status ??? PT 10/18/2018 10.9 8.5 - 13.0 sec Final ??? INR 10/18/2018 1.02 0.80 - 1.21 Final Telephone on 10/07/2018 Component Date Value Ref Range Status ??? INR 10/13/2018 1.0 Final ??? PT 10/13/2018 10.1 9.0 - 11.5 sec Final ??? Glucose 10/13/2018 79 65 - 139 mg/dL Final ??? BUN 10/13/2018 12 7 - 25 mg/dL Final ??? Creatinine 10/13/2018 0.85 0.60 - 1.35 mg/dL Final ? ? eGFR NON-AFR. VIET[place]ESE 10/13/2018 121 > OR = 60 mL/min/1.73m2 Final ? ? EGFR 10/13/2018 140 > OR = 60 mL/min/1.73m2 Final ??? BUN/creat ratio 10/13/2018 NOT APPLICABLE 6 - 22 (calc) Final ??? Sodium 10/13/2018 143 135 - 146 mmol/L Final ??? Potassium, pl 10/13/2018 4.1 3.5 - 5.3 mmol/L Final ??? Chloride 10/13/2018 106 98 - 110 mmol/L Final ??? CO2 10/13/2018 29 20 - 32 mmol/L Final ??? Calcium 10/13/2018 9.6 8.6 - 10.3 mg/dL Final ??? Protein, sr 10/13/2018 5.7* 6.1 - 8.1 g/dL Final ??? Albumin 10/13/2018 4.3 3.6 - 5.1 g/dL Final ??? GLOBULIN 10/13/2018 1.4* 1.9 - 3.7 g/dL (calc) Final ??? Alb/glob ratio 10/13/2018 3.1* 1.0 - 2.5 (calc) Final ??? Bilirubin, total 10/13/2018 0.6 0.2 - 1.2 mg/dL Final ??? Alk phos 10/13/2018 372* 40 - 115 U/L Final ??? AST 10/13/2018 38 10 - 40 U/L Final ??? ALT (SGPT) 10/13/2018 73* 9 - 46 U/L Final ??? WBC 10/13/2018 5.7 3.8 - 10.8 Thousand/uL Final ??? RBC, POC 10/13/2018 4.29 4.20 - 5.80 Million/uL Final ??? Hgb 10/13/2018 14.3 13.2 - 17.1 g/dL Final ??? Hct 10/13/2018 40.4 38.5 - 50.0 % Final ??? MCV 10/13/2018 94.2 80.0 - 100.0 fL Final ??? MCH 10/13/2018 33.3* 27.0 - 33.0 pg Final ??? MCHC 10/13/2018 35.4 32.0 - 36.0 g/dL Final ??? Rdw 10/13/2018 14.9 11.0 - 15.0 % Final ??? Platelets 10/13/2018 421* 140 - 400 Thousand/uL Final ??? MPV 10/13/2018 9.8 7.5 - 12.5 fL Final ??? Neutrophils, abs 10/13/2018 946* 1,500 - 7,800 cells/uL Final ??? Lymphocytes, abs 10/13/2018 3,825 850 - 3,900 cells/uL Final ??? Monocyte abs 10/13/2018 770 200 - 950 cells/uL Final ??? Eosinophils, abs 10/13/2018 131 15 - 500 cells/uL Final ??? Basophils, abs 10/13/2018 29 0 - 200 cells/uL Final ??? Neutrophils 10/13/2018 16.6 % Final ??? Lymphocyte pct 10/13/2018 67.1 % Final ??? Monocytes 10/13/2018 13.5 % Final ??? Eosinophils 10/13/2018 2.3 % Final ??? Basophils 10/13/2018 0.5 % Final ??? GGT 10/13/2018 238* 3 - 70 U/L Final ??? Tacrolimus, Highly Sensitive, LC/M* 10/13/2018 3.0* mcg/L Final ??? COPY(IES) SENT TO: 10/13/2018 Final There may be more visits with results that are not included. Imaging Results: MR/MRCP w/wo (12/05/18) Postsurgical changes of left lobe orthotopic liver transplant. No steatosis, surface nodularity, or biliary ductal dilatation. 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 The largest clinical concern is his large cervical lymph node concerning for recurrence of his posttransplant lymphoproliferative disease. We anticipate the need for an excisional lymph node biopsy but will clearly defer to our oncologist. He is currently going to see Dr. Anita Gillespie later today. His last detectable CMV virus was June 21 2019, therefore we will refill his Valcyte q12hr dosing with goal of continuing his consolidation for 4 months (refill thru the end of October). He should have surveillance with CMV PCR monthly during this time. Otherwise, we will continue his current immunosuppression regimen (tacrolimus monotherapy 0.5mg q12hr, goal trough 3-5 ng/ml). Once through his CMV consolidation, he is to revert back to safety labsevery 3 months. We plan on seeing him back in transplant clinic in 12 months or sooner if there is a change in his clinical status. Cosigned by Theodore Gresham MD at 10/04/2019 7:51 PM BOTTLE HOUSE CLEANERS SUPERVISOR LE HOUSE CLEANERS SUPERVISOR LE HOUSE CLEANERS SUPERVISOR Associated attestation - Theodore Gresham MD - 10/04/2019 7:51 PM BOTTLE HOUSE CLEANERS SUPERVISOR I have seen and examined the patient. I agree with the findings and plan of care as documented in the resident/fellow's note and as discussed with the resident/fellow. documented in this encounter Plan of Treatment Scheduled Procedures Name Priority Associated Diagnoses Date/Ti me COLONOSCOPY Encounter for screening for colorectal cancer in high risk patient Family history of rectal cancer documented as of this encounter Visit Diagnoses Diagnosis History of liver transplant (CMS/HCC) (HCC)- Primary Liver replaced by transplant documented in this encounter Historical Medications * This list may reflect changes made after this encounter. tacrolimus (PROGRAF) 0.5 mg capsule 0.5 mg 2 (two) times a day 10/13/2019 added in this encounter Care Teams Manager Home Healthcare Relationship Specialty Start Date End Date Guero Colunga DO [address] [facility] [address] [place] [address] PCP - General Internal Medicine 03/22/19 04/18/23 Munira Rick, RN [address] [facility] [address] [place] [address] Lombardi Developer 04/01/18 documented as of this encounter
--- OUTSIDE RECORDS SUMMARY | 2024-10-28 06:25 | XMS_ITS | Encounter Summary ---
Author Organization [facility] Healthcare Address [address] [place] [address] Care Team Providers Care Welder Plasma Arc Name Role Phone Munira Rick RN Unavailable [phone] Guero Colunga DO Primary Care Provider [phone] Encounter Details Date Type Department Care Team (Late st Contact Info) Description 06/16/2019 Telephone [facility] Transplant Liver [address] [facility] [address] [phone] [place] [address] Tarik Perry Social History Tobacco Use Types Packs/Day Years Used Date Smoking Tobacco: Never Smokeless Tobacco: Never Sex and Gender Information Value Date Recorded Sex Assigned at Not on file Legal Sex Male 6:28 AM TOWER SUPERVISOR Gender Identity Not on file Sexual Orientation Straight 08/22/2021 9: 23 AM CDT documented as of this encounter Miscellaneous Notes * Telephone Encounter - Tarik Perry - 06/16/2019 9:26 AM CDT Patient's mother, Brooklynn Nichols, called [phone] to set up CMV blood work to coincide with 's appt on Wednesday, June 21. I placed an order in Epic for one time order (CMV) DNA, PCR. documented in this encounter Plan of Treatment Scheduled Procedures Name Priority Associated Diagnoses Date/Ti ia COLONOSCOPY Encounter for screening for colorectal cancer in high risk patient Family history of rectal cancer documented as of this encounter Visit Diagnoses Not on filedocumented in this encounter Care Teams Welder Plasma Arc Relationship Specialty Start Date End Date Guero Colunga DO [address] [facility] [address] [place] [address] PCP - General Internal Medicine 03/22/19 04/18/23 Munira Rick, RN [address] [facility] [address] [place] [address] Interactive Media Project Manager 04/01/18 documented as of this encounter
--- OUTSIDE RECORDS SUMMARY | 2024-10-28 06:25 | XMS_ITS | Encounter Summary ---
Author Organization [facility] Healthcare Address [address] [place] [address] Care Team Providers Care Patrol Driver Name Role Phone Munira Rick RN Unavailable [phone] Guero Colunga DO Primary Care Provider [phone] Encounter Details Date Type Department Care Team (Late st Contact Info) Description 06/22/2019 Telephone [facility] Transplant Liver [address] [facility] [address] [phone] [place] [address] Munira Rick, RN [address] [facility] [address] [place], [place] [id number] Social History Tobacco Use Types Packs/Day Years Used Date Smoking Tobacco: Never Smokeless Tobacco: Never Sex and Gender Information Value Date Recorded Sex Assigned at Not on file Legal Sex Male 6:28 AM SHOT MAN Gender Identity Not on file Sexual Orientation Straight 08/22/2021 9: 23 AM CDT documented as of this encounter Miscellaneous Notes * Telephone Encounter - Munira Rick RN - 06/22/2019 10:05 AM CDT Received lab results indicating active CMV. Call placed to pt to discuss current dosing. Pt has been on valcyte 450 mg BID for treatment. Spoke with pt's mom. She states her son ran out of med 3 weeks ago and did not go to lab as instructed to see if med could be stopped. Let mom know that coordinator will review with hepatology and let her know plan of care. documented in this encounter Plan of Treatment Scheduled Procedures Name Priority Associated Diagnoses Date/Ti me COLONOSCOPY Encounter for screening for colorectal cancer in high risk patient Family history of rectal cancer documented as of this encounter Visit Diagnoses Not on filedocumented in this encounter Care Teams Patrol Driver Relationship Specialty Start Date End Date Guero Colunga DO [address] [address] PCP - General Internal Medicine 03/22/19 04/18/23 Munira Rick, RN [address] [address] Casing Soaker 04/01/18 documented as of this encounter
--- OUTSIDE RECORDS SUMMARY | 2024-10-28 06:25 | XMS_ITS | Encounter Summary ---
Author Organization [facility] Healthcare Address [address] [place] [address] Care Team Providers Care Research Instructor Name Role Phone Kali Cruz MD Primary Care Provider [phone] Munira Rick RN Unavailable [phone] Encounter Details Date Type Department Care Team (Late st Contact Info) Description 02/13/2019 Telephone [facility] and [facility] Transplant Liver [address] [facility] [address] Mail[address] [phone] [place] [address] Tarik Perry Social History Tobacco Use Types Packs/Day Years Used Date Smoking Tobacco: Never Smokeless Tobacco: Never Sex and Gender Information Value Date Recorded Sex Assigned at Not on file Legal Sex Male 6:28 AM BOWL SANDER Gender Identity Not on file Sexual Orientation Straight 08/22/2021 9: 23 AM CDT documented as of this encounter Miscellaneous Notes * Telephone Encounter - Tarik Perry - 02/13/2019 1:07 PM CDT Voicemail: Pt momSonia would like a return call [phone]. Wants to know why valganciclovir is not getting refilled. Pt also need refill on tacro documented in this encounter Plan of Treatment Scheduled Procedures Name Priority Associated Diagnoses Date/Ti me COLONOSCOPY Encounter for screening for colorectal cancer in high risk patient Family history of rectal cancer documented as of this encounter Visit Diagnoses Not on filedocumented in this encounter Care Teams Research Instructor Relationship Specialty Start Date End Date Kali Cruz MD [address] [place] [address] PCP - General 04/09/17 03/21/19 Munira Rick, RN [address] [address] Interactive Media Director 04/01/18 documented as of this encounter
--- OUTSIDE RECORDS SUMMARY | 2024-10-28 06:25 | XMS_ITS | Encounter Summary ---
Author Organization [facility] Healthcare Address [address] [place] [address] Care Team Providers Care Dipper Fish Name Role Phone Munira Rick RN Unavailable [phone] Guero Colunga DO Primary Care Provider [phone] Encounter Details Date Type Department Care Team (Late st Contact Info) Description 06/23/2019 Telephone [facility] and [facility] Transplant Liver [address] [facility] [address] Mailstop [phone] [place] [address] Munira Rick RN [address] [facility] [address] [place] [address] Social History Tobacco Use Types Packs/Day Years Used Date Smoking Tobacco: Never Smokeless Tobacco: Never Sex and Gender Information Value Date Recorded Sex Assigned at Not on file Legal Sex Male 6:28 AM DIGITAL MEDIA BUYER Gender Identity Not on file Sexual Orientation Straight 08/22/2021 9: 23 AM CDT documented as of this encounter Miscellaneous Notes * Telephone Encounter - Munira Rick RN - 06/23/2019 3:00 PM CDT Pt mom returned call to coordinator, she did receive message and will ensure pt starts med today and has weekly labs. documented in this encounter Plan of Treatment Scheduled Procedures Name Priority Associated Diagnoses Date/Ti me COLONOSCOPY Encounter for screening for colorectal cancer in high risk patient Family history of rectal cancer documented as of this encounter Visit Diagnoses Not on filedocumented in this encounter Care Teams Dipper Fish Relationship Specialty Start Date End Date Guero Colunga DO [address] [facility] [address] [place] [address] PCP - General Internal Medicine 03/22/19 04/18/23 Munira Rick, RN [address] [address] Crane Man 04/01/18 documented as of this encounter
--- OUTSIDE RECORDS SUMMARY | 2024-10-28 06:25 | XMS_ITS | Encounter Summary ---
Author Organization [facility] Healthcare Address [address] [place] [address] Care Team Providers Care Shrimp Peeling Machine Tender Name Role Phone Munira Rick RN Unavailable Guero Colunga DO Primary Care Provider [phone] Encounter Details Date Type Department Care Team (Late st Contact Info) Description 05/23/2019 Telephone [facility] and [facility] Transplant Liver [address] [facility] [address] [phone] [place] [address] Tarik Perry Social History Tobacco Use Types Packs/Day Years Used Date Smoking Tobacco: Never Smokeless Tobacco: Never Sex and Gender Information Value Date Recorded Sex Assigned at Not on file Legal Sex Male 6:28 AM LINING FELLER Gender Identity Not on file Sexual Orientation Straight 08/22/2021 9: 23 AM CDT documented as of this encounter Miscellaneous Notes * Telephone Encounter - Tarik Perry - 05/23/2019 9:03 AM CDT In addition to SO faxed to [facility] [phone] and scan into media documented in this encounter Plan of Treatment Scheduled Procedures Name Priority Associated Diagnoses Date/Ti me COLONOSCOPY Encounter for screening for colorectal cancer in high risk patient Family history of rectal cancer documented as of this encounter Visit Diagnoses Not on filedocumented in this encounter Care Teams Shrimp Peeling Machine Tender Relationship Specialty Start Date End Date Guero Colunga DO [address] [facility] [address] [place] [address] PCP - General Internal Medicine 03/22/19 04/18/23 Munira Rick RN [address] [facility] [address] [place] [address] Buttermilk Drier Operator 04/01/18 documented as of this encounter
--- OUTSIDE RECORDS SUMMARY | 2024-10-28 06:25 | XMS_ITS | Encounter Summary ---
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) CT,LAB,ROV Procedures ONCBCN CLINIC APPOINTMENT REQUEST RETURN Anita Gillespie MD [address] [facility] [address] [place] [address] Phone: tel: fax: [facility] [address] [place] [address] 7th [place] [address] [place] [address] Phone: tel: fax: Referral ID Status Reason Start Date Expiration Date Visits Re quested Visits Authorized [id number] Closed 12/28/2018 10/31/2019 99 [phone] Encounter Details Date Type Department Care Team (Latest Contact Info) Description 06/21/2019 8:00 AM CDT Office Visit [facility] [address] [place] [address] 7th [place] [address] [place] [address] High grade B-cell lymphoma (CMS/HCC) (Primary Dx); 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 (CMS/HCC) Social History Tobacco Use Types Packs/Day Years Used Date Smoking Tobacco: Never Smokeless Tobacco: Never Sex and Gender Information Value Date Recorded Sex Assigned at Not on file Legal Sex Male 6:28 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 ANALYST Gender Identity Not on file Sexual Orientation Straight 08/22/2021 9: 23 AM CDT documented as of this encounter Last Filed Vital Signs Vital Sign Reading Time Taken Comments Blood Pressure 113/73 06/21/2019 7:47 AM CDT Pulse 65 06/21/2019 7:47 AM CDT Temperature 36.7 ??C (98.1 ??F) 06/21/2019 7:47 AM CD T Respiratory Rate 18 06/21/2019 7:47 AM CDT Oxygen Saturation 97% 06/21/2019 7:47 AM CDT Inhaled Oxygen Concentration - - Weight 61 kg (134 lb 6.4 oz) 06/21/2019 7:47 AM CDT Height - - Body Mass Index 20.44 03/10/2019 8:57 AM CDT documented in this encounter Progress Notes * Yulisa Harris MD - 06/21/2019 12:00 AM CDT PATIENT NAME: ADI NICHOLS : 1995 JUSTEN: 06/21/2019 DIAGNOSES: 1. 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 INTERVAL HISTORY: Mr. Nichols is a very pleasant 24-year-old gentleman here for a scheduled return office visit. He hasa past medical history of posttransplant lymphoproliferative disorder, now 18 months out from treatment with DA-EPOCH-R x 5 (completed December 2017). At last visit in March 2019, he was reporting continued waxing and waning cervical adenopathy. Most recent lymph node biopsy on 01/06/2019 showed follicular hyperplasia with focally increased EBV positive cells, but no evidence of recurrent lymphoma.A bone marrow biopsy was also negative for lymphoma on 01/04/2019. He comes to clinic today for continued surveillance. Mr. Nichols has been doing quite well since last visit. His cervical adenopathy is overall stable per his assessment. He denies sinus pain, drainage, or sore throat. He denies fevers, chills, or sweats. 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 He denies headaches or vision changes. He denies cough or shortness of breath. His chronicdiarrhea is stable. He is having approximately 2 bowel movements a day that are watery but nonbloody. He denies any abdominal pain. His only complaint today is insomnia. He denies any stress in his life and is hoping to manage this by cutting back on caffeine. PHYSICAL EXAM: Vital Signs: Temperature 98.1, blood pressure 113/73, heart rate 65, respiratory rate 18, saturation 97% on room air, weight 61 kg (up from 58.6 kg on 03/22/2019). Performance Status: 0. Lungs: Clear to auscultation bilaterally with good air movement. Nodes: Today, the patient has a right jugulodigastric node measuring 2.2 x 1.5 cm, a left postauricular node measuring 1.5 x 1 cm, and a left mid posterior cervical node measuring 1 x 1 cm. He also has 3 subcentimeter low posterior cervical nodes on the left. With regard to axillary adenopathy, he has mobile subcentimeter axillary nodes on both the left and right side. He also has a mobile, approximately 1 x 1 cm, node in the mid inguinal region on the left. HEENT: Sclerae anicteric. No conjunctival injection. No oropharyngeal erythema or ulcers. Abdomen: Normoactive bowel sounds. Soft, nontender, and nondistended. No hepatosplenomegaly. Extremities: No edema, clubbing, or cyanosis. Cardiovascular: Regular rate and rhythm. No murmurs, rubs, or gallops. Neurologic: Alert and oriented x 4. Pupils equal and reactive to light. Extraocular motions intact.Face symmetric. Tongue midline. Routine gait normal. LABORATORY DATA: 1. CBC: White cell count 16.3 (up from 9.6 on 03/22/2019), hemoglobin 16.6, platelets 374, ANC 9.1,LDH 240. 2. CMP: Sodium 143, potassium 4.6, creatinine 1.07 (up from 0.91 on 03/22/2019), albumin 3.8, bilirubin 0.3, alk phos 188 (stable from prior), AST 30, ALT 35. 3. CMV DNA level ordered by his hepatology providers was drawn today and is currently pending. ASSESSMENT AND PLAN: 1. C-Myc positive posttransplant lymphoproliferative disorder, Nadine-De La Cruz virus positive, stage EMY, IPI-3 (stage, LDH, extranodal sites). The patient is now 18 months from treatment with DA-EPOCH-R x 5 with 3 doses of intrathecal methotrexate for NETSUITE DEVELOPER prophylaxis. He has no evidence of recurrencebased on history, physical, or labs today. Recent lymph node biopsy showed follicular hyperplasia and focally increased EBV positive cells, but no evidence of recurrent lymphoma. Likewise, bone marrow biopsy was negative for lymphoma in December of this year. Though he remains at risk for progression of this polyclonal lymphoid proliferation to overt lymphoma, we feel that close surveillance is the most prudent course at this time. We will therefore see him back in 3 months for a return office visit. He has our contact information to reach us in the interim with any questions or concerns. 2. History of liver transplant. The patient remains on tacrolimus 0.5 mg b.i.d. Patient notes that he has been off his valganciclovir due to running out of refills and was told to have CMV level drawn today before resuming (level drawn and pending). He is scheduled for follow-up with his hepatologyproviders on 10/04/2019 and will also be in communication with them by phone regarding his CMV level from today. 3. History of pulmonary embolus. This was an incidental finding in October 2017. He completed a 6-month course of Eliquis on 04/19/2018. He has no symptoms of recurrent PE or DVT at this time. ELECTRONICALLY SIGNED - 06/23/2019 07:17 PM Yulisa Harris M.D. Fellow I have seen and examined the patient and agree with the findings and plan of care as documented by and/or discussed with Yulisa Harris M.D.. ELECTRONICALLY SIGNED - 06/25/2019 08:33 AM Anita Gillespie M.D. professor of biochemistry [facility] Chair in Medical Oncology LS/NB/an cc: LENO AGUSTIN MD [address] [facility] [address], [place] [address] LINDA CHAPA MD [address] [facility] [place] [address] / documented in this encounter Miscellaneous Notes * Addendum Note - Reta Flanagan - 06/21/2019 8:00 AM CDTAddended by: RETA FLANAGAN on: 10/04/2019 07:07 AM Modules accepted: Orders SFORMATION ANALYST documented in this encounter Plan of Treatment Scheduled Procedures Name Priority Associated Diagnoses Date/Ti me COLONOSCOPY Encounter for screening for colorectal cancer in high risk patient Family history of rectal cancer documented as of this encounter Results * (ABNORMAL) Comprehensive metabolic panel (10/04/2019 7:14 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 ANALYST) Sodium 141 135 - 145 mmol/L [facility] Potassium, pl 4.5 3.3 - 4.9 mmol/L [facility] Chloride 103 97 - 110 mmol/L [facility] CO2 28 22 - 32 mmol/L [facility] Anion gap 10 2 - 15 mmol/L [facility] BUN 13 8 - 25 mg/dL [facility] Creatinine 0.99 0.80 - 1.30 mg/dL [facility] Glucose 96 70 - 199 mg/dL [facility] Comment: Interpretive Data Fasting glucose >/= [...] interpretive data was last revised 2017. Calcium 9.4 8.5 - 10.3 mg/dL [facility] Bilirubin, total 0.7 0.1 - 1.2 mg/dL [facility] Protein, pl 6.1(L) 6.5 - 8.5 g/dL [facility] Albumin 3.9 3.5 - 5.0 g/dL [facility] Alk phos 292(H) 40 - 130 Units/L [facility] ALT 37 7 - 55 Units/L [facility] AST 45 10 - 50 Units/L [facility] Blood specimen (specimen) 10/04/2019 7:14 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 ANALYST 10/04/2019 7:59 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 ANALYST us Anita Gillespie MD LAB BLOOD ORDERABLES Final Result Performing Organization Address City/[facility]/ZIP Co de Phone Number [facility] Department [place] [address] * (ABNORMAL) Lactate dehydrogenase (LD) (10/04/2019 7:14 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 ANALYST) Lactate dehydrogenase (LDH) 275(H) 100 - 250 Units/L [facility] Blood specimen (specimen) 10/04/2019 7:14 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 ANALYST 10/04/2019 7:59 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 ANALYST us Anita Gillespie MD LAB BLOOD ORDERABLES Final Result [facility] Department [place] [address] * (ABNORMAL) CBC with auto differential (10/04/2019 7:12 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 ANALYST) WBC 16.8(H) 3.8 - 9.8 K/cumm [facility] Comment:Testing performed by : [facility], [address] [place], [place] [phone] Hgb 15.2 13.8 - 17.2 g/dL [facility] Comment:Testing performed by : [facility], [address] [place], [place] [phone] Hct 45.2 40.7 - 50.3 % [facility] Comment:Testing performed by : [facility], [address] [place] [address] Plt 313 140 - 440 K/cumm [facility] Comment:Testing performed by : [place] [address] MPV 7.3 6.8 - 10.4 fL [facility] Comment:Testing performed by : [place] [address] RBC 4.65 4.50 - 5.70 M/cumm [facility] Comment:Testing performed by : [facility], [address] [place] [address] MCV 97.3 80.0 - 97.6 fL [facility] Comment:Testing performed by : [address] MCH 32.6 26.7 - 33.7 pg [facility] Comment:Testing performed by : [place] [address] MCHC 33.5 32.7 - 35.5 g/dL [facility] Comment:Testing performed by : [facility], [address] [place], [place] [phone] RDW CV 14.5 11.8 - 14.6 % [facility] Comment:Testing performed by : [place] [address] NRBC abs 0.00 0.00 - 0.01 K/cumm [facility] Comment:Testing performed by : [facility], [address] [place], [place] [phone] Blood specimen (specimen) 10/04/2019 7:12 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 ANALYST 10/04/2019 7:15 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 ANALYST us Anita Gillespie MD LAB BLOOD ORDERABLES Final Result [facility] One [facility] Department [place] [address] documented in this encounter Visit Diagnoses Diagnosis High grade B-cell lymphoma (HCC)- Primary 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) documented in this encounter Discontinued Medications Medication Sig Discontinue Reason Start Date End Da te lidocaine viscous (XYLOCAINE) 2 % solution Apply 15 mL to the mouth or throat every 3 (three) hours as needed (pain) Therapy completed 03/10/2019 06/21/2019 documented as of this encounter Orders Appointment Requests Count Last Ordered Date Fi rst Ordered Date ONCBCN CLINIC APPOINTMENT REQUEST 2 019 06/21/2019 ONCBCN LAB APPOINTMENT 1 10/04/2019 documented in this encounter Care Teams Scada Engineer Relationship Specialty Start Date End Date Guero Colunga DO [address] [facility] [address] [place] [address] PCP - General Internal Medicine 03/22/19 04/18/23 Munira Rick, RN [address] [facility] [address] [place] [address] Mortgage Loan Specialist 04/01/18 documented as of this encounter
--- OUTSIDE RECORDS SUMMARY | 2024-10-28 06:25 | XMS_ITS | Encounter Summary ---
Author Organization [facility] Address [address] [place] [address] Phone Care Team Providers Care Maintenance Of Way Clerk Name Role Phone Munira Rick RN Unavailable [phone] Guero Colunga DO Primary Care Provider [phone] Encounter Details Date Type Department Care Team (Late st Contact Info) Description 10/04/2019 7:00 AM CAR BODY MECHANIC Lab [facility] [address] [facility] 7th [place] [address] [place] [address] High grade B-cell lymphoma (CMS/HCC); 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) Social History Tobacco Use Types Packs/Day Years Used Date Smoking Tobacco: Never Smokeless Tobacco: Never Sex and Gender Information Value Date Recorded Sex Assigned at Not on file Legal Sex Male 6:28 AM CAR BODY MECHANIC Gender Identity Not on file Sexual Orientation Straight 08/22/2021 9: 23 AM CDT documented as of this encounter Plan of Treatment Scheduled Procedures Name Priority Associated Diagnoses Date/Ti me COLONOSCOPY Encounter for screening for colorectal cancer in high risk patient Family history of rectal cancer documented as of this encounter Procedures Procedure Name Priority Date/Time Associated Diagnosis Comments LACTATE DEHYDROGENASE Routine 10/04/2019 7:14 AM CAR BODY MECHANIC 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) COMPREHENSIVE METABOLIC PANEL Routine 10/04/2019 7:14 AM CAR BODY MECHANIC 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) DIFFERENTIAL AUTO Routine 10/04/2019 7:1 2 AM CAR BODY MECHANIC 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) CBC WITH AUTO DIFFERENTIAL Routine 10/04/2019 7:12 AM CAR BODY MECHANIC 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) documented in this encounter Results * (ABNORMAL) Lactate dehydrogenase (LD) (10/04/2019 7:14 AM CAR BODY MECHANIC) Lactate dehydrogenase (LDH) 275(H) 100 - 250 Units/L [facility] Blood specimen (specimen) 10/04/2019 7:14 AM CAR BODY MECHANIC 10/04/2019 7:59 AM CAR BODY MECHANIC Anita Gillespie MD LAB BLOOD ORDERABLES Final Result [facility] One [facility] Department [place] [address] * (ABNORMAL) Comprehensive metabolic panel (10/04/2019 7:14 AM CAR BODY MECHANIC) Pathologist [facility] Sodium 141 135 - 145 mmol/L [facility] Potassium, pl 4.5 3.3 - 4.9 mmol/L [facility] Chloride 103 97 - 110 mmol/L [facility] CO2 28 22 - 32 mmol/L [facility] Anion gap 10 2 - 15 mmol/L [facility] BUN 13 8 - 25 mg/dL [facility] Creatinine 0.99 0.80 - 1.30 mg/dL [facility] Glucose 96 70 - 199 mg/dL [facility] Comment: Interpretive Data Fasting glucose [...] 2017. Calcium 9.4 8.5 - 10.3 mg/dL [facility] Bilirubin, total 0.7 0.1 - 1.2 mg/dL [facility] Protein, pl 6.1(L) 6.5 - 8.5 g/dL [facility] Albumin 3.9 3.5 - 5.0 g/dL [facility] Alk phos 292(H) 40 - 130 Units/L [facility] ALT 37 7 - 55 Units/L [facility] AST 45 10 - 50 Units/L [facility] Blood specimen (specimen) 10/04/2019 7:14 AM CAR BODY MECHANIC 10/04/2019 7:59 AM CAR BODY MECHANIC Anita Gillespie MD LAB BLOOD ORDERABLES Final Result [facility] One [facility] [place] [address] * (ABNORMAL) Differential, auto (10/04/2019 7:12 AM CAR BODY MECHANIC) Neutrophil abs 9.5(H) 1.8 - 6.6 K/cumm [facility] Comment:Testing performed by : [facility], [address] [place] [phone] Lymphocyte abs 3.4(H) 1.2 - 3.3 K/cumm [facility] Comment:Testing performed by : [facility], [address] [place] [phone] Monocyte abs 3.3(H) 0.2 - 1.2 K/cumm [facility] Comment:Testing performed by : [facility], [address] [place] [phone] Eosinophil abs 0.3 0.0 - 0.5 K/cumm [facility] Comment:Testing performed by : [facility], [address] [place] [phone] Basophil abs 0.1 0.0 - 0.2 K/cumm [facility] Comment:Testing performed by : [address] [phone] Neutrophil pct 57.0 % [facility] Comment: Interpretive Data Percent cell count reference ranges are not reported, since discordance with absolute values may lead to misinterpretation of CBC data. Current Interpretive Data was last revised on 2018. Testing performed by: [facility], [address] [place] [phone] Lymphocyte pct 20.3 % [facility] Comment: Interpretive Data Percent cell count reference ranges are not reported, since discordance with absolute values may lead to misinterpretation of CBC data. Current Interpretive Data was last revised on 2018. Testing performed by: [address] [phone] Monocyte pct 19.9 % [facility] Comment:Testing performed by : [facility], [address] [place] [phone] Eosinophil pct 2.0 % [facility] Comment:Testing performed by : [address] [phone] Basophil pct 0.8 % [facility] Comment:Testing performed by : [address] [phone] Blood specimen (specimen) 10/04/2019 7:12 AM CAR BODY MECHANIC 10/04/2019 7:15 AM CAR BODY MECHANIC us Anita Gillespie MD LAB BLOOD ORDERABLES Final Result [facility] One [facility] Department [place] [address] * (ABNORMAL) CBC with auto differential (10/04/2019 7:12 AM CAR BODY MECHANIC) WBC 16.8(H) 3.8 - 9.8 K/cumm [facility] Comment:Testing performed by : [facility], [address] [place] [phone] Hgb 15.2 13.8 - 17.2 g/dL [facility] Comment:Testing performed by : [facility], [address] [place], [place] [phone] Hct 45.2 40.7 - 50.3 % [facility] Comment:Testing performed by : [facility], [address] [place] [address] Plt 313 140 - 440 K/cumm [facility] Comment:Testing performed by : [facility], [address] [place], [place] [phone] MPV 7.3 6.8 - 10.4 fL [facility] Comment:Testing performed by : [place] [address] RBC 4.65 4.50 - 5.70 M/cumm [facility] Comment:Testing performed by : [place] [address] MCV 97.3 80.0 - 97.6 fL [facility] Comment:Testing performed by : [facility], [address] [place], [place] [phone] MCH 32.6 26.7 - 33.7 pg [facility] Comment:Testing performed by : [place] [address] MCHC 33.5 32.7 - 35.5 g/dL [facility] Comment:Testing performed by : [address] RDW CV 14.5 11.8 - 14.6 % [facility] Comment:Testing performed by : [facility], [address] [place], [place] [phone] NRBC abs 0.00 0.00 - 0.01 K/cumm [facility] Comment:Testing performed by : [place] [phone] Blood specimen (specimen) 10/04/2019 7:12 AM CAR BODY MECHANIC 10/04/2019 7:15 AM CAR BODY MECHANIC Anita Gillespie MD LAB BLOOD ORDERABLES Final Result [facility] [place] [address] documented in this encounter Visit Diagnoses Diagnosis High grade B-cell lymphoma (HCC) 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
--- OUTSIDE RECORDS SUMMARY | 2024-10-28 06:25 | XMS_ITS | Encounter Summary ---
Author Organization [facility] Care Team Providers Care Ruby On Rails Developer Name Role Phone Munira Rick RN Unavailable Guero Colunga DO Primary Care Provider Encounter Details Date Type Department Care Team (Latest Contact Info) Description 10/10/2019 Travel Social History Tobacco Use Types Packs/Day Years Used Date Smoking Tobacco: Never Smokeless Tobacco: Never Sex and Gender Information Value Date Recorded Sex Assigned at Not on file Legal Sex Male 6:28 AM STOKER ERECTOR AND SERVICER Gender Identity Not on file Sexual Orientation Straight 08/22/2021 9: 23 AM CDT documented as of this encounter Plan of Treatment Scheduled Procedures Name Priority Associated Diagnoses Date/Ti me COLONOSCOPY Encounter for screening for colorectal cancer in high risk patient Family history of rectal cancer documented as of this encounter Visit Diagnoses Not on filedocumented in this encounter Care Teams Ruby On Rails Developer Relationship Specialty Start Date End Date Guero Colunga DO [address] [place] [address] PCP - General Internal Medicine 03/22/19 04/18/23 Munira Rick, RN [address] [place] [address] Manager Performance Improvement 04/01/18 documented as of this encounter
--- OUTSIDE RECORDS SUMMARY | 2024-10-28 06:25 | XMS_ITS | Encounter Summary ---
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) CT,LAB,ROV Procedures ONCBCN CLINIC APPOINTMENT REQUEST RETURN Anita Gillespie MD [address] [facility] [address] [place] [address] Phone: tel: fax: [facility] [address] [place] [address] 7th [place] [address] Phone: tel: fax: Referral ID Status Reason Start Date Expiration Date Visits Re quested Visits Authorized [id number] Closed 12/28/2018 10/31/2019 99 99 Encounter Details Date Type Department Care Team (Latest Contact Info) Description 03/22/2019 8:30 AM CDT Office Visit [facility] [address] [place] [address] 7th [place] [address] [place] [address] 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); High grade B-cell lymphoma (CMS/HCC) Social History Tobacco Use Types Packs/Day Years Used Date Smoking Tobacco: Never Smokeless Tobacco: Never Sex and Gender Information Value Date Recorded Sex Assigned at Not on file Legal 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 Gender Identity Not on file Sexual Orientation Straight 08/22/2021 9: 23 AM CDT documented as of this encounter Last Filed Vital Signs Vital Sign Reading Time Taken Comments Blood Pressure 103/64 03/22/2019 7:55 AM CDT Pulse 64 03/22/2019 7:55 AM CDT Temperature 36.6 ??C (97.8 ??F) 03/22/2019 7:55 AM CD T Respiratory Rate 18 03/22/2019 7:55 AM CDT Oxygen Saturation 97% 03/22/2019 7:55 AM CDT Inhaled Oxygen Concentration - - Weight 58.6 kg (129 lb 3.2 oz) 03/22/2019 7:55 A M CDT Height - - Body Mass Index 19.64 03/10/2019 8:57 AM CDT documented in this encounter Progress Notes * Dick Blackburn MD - 03/22/2019 12:00 AM CDT PATIENT NAME: ADI NICHOLS : 1995 JUSTEN: 03/22/2019 DIAGNOSES: 1. 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 2. 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 3. Bilateral pulmonary embolism diagnosed on 10/19/2017. TREATMENT AND DISEASE COURSE: 1. R-CHOP x 1, 08/25/2017. 2. Dose adjusted EPOCH-R x 5, 09/15/2017 - 12/2017. Post-C2 PET: DE (5PS = 4), CR post C5 3. IT chemotherapy (MTX), only with cycle 3 on 10/06/2017, complicated by intracranial hypotension. 4. R cervical LNBx, 01/06/19, EBV+ florid follicular hyperplasia, c/w possible early PTLD. INTERVAL HISTORY: Mr. Nichols is a very pleasant 24-year-old gentleman here for scheduled return office visit, accompanied by his mother and father. He was last seen on 12/28/2018. He continues to work full-time and currently feels quite well with good energy level and function. He has unfortunately had recurrent problems with enlarged cervical lymph nodes and sore throat. This culminated a couple of weeks ago when he had very bad sore throat and difficulty swallowing. He came to the ED here on 03/10/2019, where he was evaluated with a neck CT over concern for an abscess or fluid collection. The CT scan revealeddiffuse enhancement of the nasopharyngeal and oropharyngeal mucosa, which was not substantially changed from the previous exam. It also revealed diffuse cervical lymphadenopathy, mildly decreased from prior exam. Of note, on that day, the patient felt that his lymph nodes were much larger than theyare today. He was discharged from the emergency room without antibiotics or other new medications and his symptoms resolved over the next few days. He currently denies fevers, chills, night sweats, shortness of breath, cough, chest pain, swollen neck glands or new lumps or bumps elsewhere, abdominal pain, constipation, diarrhea, nausea, vomiting, headaches, vision changes, or falls. PHYSICAL EXAM: Vital Signs: Temperature 36.6 Celsius, heart rate 64, blood pressure 102/64, respiratory rate 18, oxygen saturation 97%, weight 58.6 kg. Performance Status: 0. Lungs: Clear to auscultation bilaterally with good air movement. Nodes: The majority of his lymph nodes are markedly smaller than previous visit. There is a left jugular digastric lymph node measuring 1.5 x 1 cm. There are 2 subcentimeter palpable posterior cervical lymph nodes on the left side. There is a right submandibular lymph node measuring 1.5 cm in diameter. There is no other palpable lymphadenopathy. HEENT: Sclerae anicteric. Right conjunctiva is injected. Posterior oropharynx slightly erythematouswithout enlarged tonsils. Abdomen: Normoactive bowel sounds. Soft, nontender, and nondistended. No hepatosplenomegaly. Extremities: No edema, clubbing, or cyanosis. Cardiovascular: Regular rate and rhythm. No murmurs, rubs, or gallops. Neurologic: Alert and times alert and oriented x 4. Strength and sensation intact. Gait normal. LABORATORY DATA: White blood cell count 9.6, hemoglobin 16.2, platelet count 585. Chemistries within normal limits other than alkaline phosphatase of 197. LDH 174. ASSESSMENT/PLAN: 1. 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 This 24-year-old gentleman is now 15 months status post 1 cycle of R-CHOP and 5 cycles of dose-adjusted EPOCH-R with 3 doses of intrathecal methotrexate for WAREHOUSE CHECKER prophylaxis. He continues to have waxing and waning cervical lymph nodes which can become markedly enlarged as described in my note from 12/28/2018 when he had multiple cervical lymph nodesites greater than 2 cm in diameter. He underwent an excisional lymph node biopsy of 1 of these nodes on 01/06/2019, which revealed florid follicular hyperplasia with focally increased EBV positive cells, but no evidence of recurrence of his large-cell lymphoma. Florid follicular hyperplasia in thecontext of EBV positive cells in a patient on immunosuppression is known to be a precursor lesion which portends a higher risk of transformation into large-cell lymphoma. However, most of the literature on this subject is in the context of patients on immunosuppression who develop lymphadenopathy, not in patients who have been treated for large cell lymphoma. The significance of this lesion after6 cycles of chemotherapy is unknown. My concern is that Adi is at higher risk of de shelley large-cell lymphoma arising from this population of abnormal cells. Regardless, there is nothing to do at this point, but continued close surveillance. The patient currently feels very well and has recoveredfrom chemotherapy nicely. The only additional maneuver we could propose would be weaning his immunosuppression; however, our hepatology team feels that the risks of this outweigh potential benefits. Therefore, we will continue close surveillance with office visits every 3 months. The patient knows to call us with any questions or concerns in the interim. He and his family voiced good understanding of these considerations. 2. History of liver transplant. The patient remains on tacrolimus 0.5 mg b.i.d. He had a recent biopsy of the liver, which did not show dramatic change. 3. History of pulmonary embolus. This was an incidental finding in October 2017. He completed a 6 month course of Eliquis on 04/19/2018. ELECTRONICALLY SIGNED - 03/22/2019 09:00 PM Dick Blackburn M.D. Fellow I have seen and examined the patient and agree with the findings and plan of care as documented by and/or discussed with Dick Blackburn M.D.. ELECTRONICALLY SIGNED - 03/26/2019 06:02 PM Anita Gillespie M.D. Jason Perez of Medicine RA/NB/an cc: LINDA CHAPA MD [address] [place] [address] / LENO AGUSTIN MD [address] [facility] [address], [place] [address] documented in this encounter Plan of Treatment Scheduled Procedures Name Priority Associated Diagnoses Date/Ti me COLONOSCOPY Encounter for screening for colorectal cancer in high risk patient Family history of rectal cancer documented as of this encounter Results * (ABNORMAL) CBC with auto differential (06/21/2019 6:52 AM CDT) WBC 16.3(H) 3.8 - 9.8 K/cumm [facility] Comment:Testing performed by : [facility], [address] [place] [phone] Hgb 16.6 13.8 - 17.2 g/dL [facility] Comment:Testing performed by : [facility], [address] [place] [phone] Hct 47.7 40.7 - 50.3 % [facility] Comment:Testing performed by : [facility], [address] [place] [phone] Plt 374 140 - 440 K/cumm [facility] Comment:Testing performed by : [facility], [address] [place] [phone] MPV 7.3 6.8 - 10.4 fL [facility] Comment:Testing performed by : [facility], [address] [place] [phone] RBC 4.92 4.50 - 5.70 M/cumm [facility] Comment:Testing performed by : [facility], [address] [place] [phone] MCV 96.9 80.0 - 97.6 fL [facility] Comment:Testing performed by : [facility], [address] [place] [phone] MCH 33.8(H) 26.7 - 33.7 pg [facility] Comment:Testing performed by : [facility], [address] [place] [phone] MCHC 34.9 32.7 - 35.5 g/dL [facility] Comment:Testing performed by : [facility], [address] [place], [place] [phone] RDW CV 14.5 11.8 - 14.6 % [facility] Comment:Testing performed by : [facility], [address] [place], [place] [phone] NRBC abs 0.01 0.00 - 0.01 K/cumm [facility] Comment:Testing performed by : [facility], [address] [place] [phone] Blood specimen (specimen) 06/21/2019 6:52 AM CDT 06/21/2019 6:54 AM CDT us Anita Gillespie MD LAB BLOOD ORDERABLES Final Result Performing Organization Address City/[facility]/ZIP Co de Phone Number [facility] Department [place] [address] * Lactate dehydrogenase (LD) (06/21/2019 6:52 AM CDT) Lactate dehydrogenase (LDH) 240 100 - 250 Units/L [facility] Blood specimen (specimen) 06/21/2019 6:52 AM CDT 06/21/2019 7:21 AM CDT us Anita Gillespie MD LAB BLOOD ORDERABLES Final Result Performing Organization Address [facility] de Phone Number [facility] Department [place] [address] * (ABNORMAL) Comprehensive metabolic panel (06/21/2019 6:52 AM CDT) Sodium 143 135 - 145 mmol/L [facility] Potassium, pl 4.6 3.3 - 4.9 mmol/L [facility] Chloride 108 97 - 110 mmol/L [facility] CO2 30 22 - 32 mmol/L [facility] Anion gap 5 2 - 15 mmol/L [facility] BUN 8 8 - 25 mg/dL [facility] Creatinine 1.07 0.80 - 1.30 mg/dL [facility] Glucose 92 70 - 199 mg/dL [facility] Comment: [...] 2017. Calcium 9.0 8.5 - 10.3 mg/dL [facility] Bilirubin, total 0.3 0.1 - 1.2 mg/dL [facility] Protein, pl 5.8(L) 6.5 - 8.5 g/dL [facility] Albumin 3.8 3.5 - 5.0 g/dL [facility] Alk phos 188(H) 40 - 130 Units/L [facility] ALT 35 7 - 55 Units/L [facility] AST 30 10 - 50 Units/L [facility] Blood specimen (specimen) 06/21/2019 6:52 AM CDT 06/21/2019 7:21 AM CDT us Anita Gillespie MD LAB BLOOD ORDERABLES Final Result [facility] Department [place] [address] documented in this encounter Visit Diagnoses Diagnosis 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 High grade B-cell lymphoma (HCC) documented in this encounter Orders Appointment Requests Count Last Ordered Date Fi rst Ordered Date ONCBCN CLINIC APPOINTMENT REQUEST 2 019 03/22/2019 ONCBCN LAB APPOINTMENT 1 06/21/2019 documented in this encounter Care Teams Director Distribution Relationship Specialty Start Date End Date Guero Colunga DO [address] [facility] [address] [place] [address] PCP - General Internal Medicine 03/22/19 04/18/23 Munira Rick, RN [address] [facility] [address] [place] [address] Vocational Guidance Counselor 04/01/18 documented as of this encounter
--- OUTSIDE RECORDS SUMMARY | 2024-10-28 06:25 | XMS_ITS | Encounter Summary ---
Author Organization [facility] Address [address] [place] [address] Care Team Providers Care Welding Machine Operator Gas Name Role Phone Munira Rick RN Unavailable [phone] Guero Colunga DO Primary Care Provider [phone] Encounter Details Date Type Department Care Team (Late st Contact Info) Description 10/04/2019 Telephone [facility] Radiology [address] [place] [address] Melissa Martinez RN Social History Tobacco Use Types Packs/Day Years Used Date Smoking Tobacco: Never Smokeless Tobacco: Never Sex and Gender Information Value Date Recorded Sex Assigned at Not on file 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 Please instruct pt to arrive CAM 3rd flr @ 1030 to register--no prep D TRAVEL COUNSELOR documented in this encounter Plan of Treatment Scheduled Procedures Name Priority Associated Diagnoses Date/Ti me COLONOSCOPY Encounter for screening for colorectal cancer in high risk patient Family history of rectal cancer documented as of this encounter Visit Diagnoses Not on filedocumented in this encounter Care Teams Welding Machine Operator Gas Relationship Specialty Start Date End Date Guero Colunga DO [address] [facility] [address] [place] [address] PCP - General Internal Medicine 03/22/19 04/18/23 Munira Rick RN [address] [address] Wheelage Clerk 04/01/18 documented as of this encounter
--- OUTSIDE RECORDS SUMMARY | 2024-10-28 06:25 | XMS_ITS | Encounter Summary ---
Author Organization [facility] Address [address] [place] [address] Phone Care Team Providers Care Commercial Trailer Truck Driver Name Role Phone Munira Rick RN Unavailable [phone] Guero Colunga DO Primary Care Provider [phone] Reason for Visit * Reason Onset Date Comments TCV call 10/16/2019 Encounter Details Date Type Department Care Team (Late st Contact Info) Description 10/16/2019 Telephone [facility] Oncology [facility] 7th [place] [address] [place] [address] Samreen Greene RN TCV call Social History Tobacco Use Types Packs/Day Years Used Date Smoking Tobacco: Never Smokeless Tobacco: Never Sex and Gender Information Value Date Recorded Sex Assigned at Not on file Legal Sex 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 no Is the patient on a research study with a research oral medication? No Spoke to Brooklynn on behalf of Beka. She states he completed his Levaquin and his cough has largely improved. He has not had any fevers. We will touch base when his lymph node biopsy has resulted. Mandyiis aware that his PET scan showed disease above and below the diaphragm (considerably worse than his previous scan). ION INSTALLATION SUPERVISOR documented in this encounter Plan of Treatment Scheduled Procedures Name Priority Associated Diagnoses Date/Ti me COLONOSCOPY Encounter for screening for colorectal cancer in high risk patient Family history of rectal cancer documented as of this encounter Visit Diagnoses Not on filedocumented in this encounter Care Teams Commercial Trailer Truck Driver Relationship Specialty Start Date End Date Guero Colunga DO [address] [facility] [address] [place] [address] PCP - General Internal Medicine 03/22/19 04/18/23 Munira Rick RN [address] [facility] [address] [place] [address] Stave Block Roller 04/01/18 documented as of this encounter
--- OUTSIDE RECORDS SUMMARY | 2024-10-28 06:25 | XMS_ITS | Encounter Summary ---
Author Organization [facility] Facility Care Team Providers Care Show Worker Name Role Phone Kali Cruz MD Primary Care Provider [phone] Munira Rick RN Unavailable [phone] Encounter Details Date Type Department Care Team (Latest Contact Info) Description 03/10/2019 Travel Social History Tobacco Use Types Packs/Day Years Used Date Smoking Tobacco: Never Smokeless Tobacco: Never Sex and Gender Information Value Date Recorded Sex Assigned at Not on file Legal Sex Male 6:28 AM FISHING HAND Gender Identity Not on file Sexual Orientation Straight 08/22/2021 9: 23 AM CDT documented as of this encounter Plan of Treatment Scheduled Procedures Name Priority Associated Diagnoses Date/Ti me COLONOSCOPY Encounter for screening for colorectal cancer in high risk patient Family history of rectal cancer documented as of this encounter Visit Diagnoses Not on filedocumented in this encounter Care Teams Show Worker Relationship Specialty Start Date End Date Kali Cruz MD [address] [place] [address] PCP - General 04/09/17 03/21/19 Munira Rick, RN [address] [facility] [address] [place] [address] Software Reliability Engineer 04/01/18 documented as of this encounter
--- OUTSIDE RECORDS SUMMARY | 2024-10-28 06:25 | XMS_ITS | Encounter Summary ---
Author Organization [facility] Address [address] [place] [address] Phone Care Team Providers Care Research Electrician Name Role Phone Munira Rick RN Unavailable [phone] Guero Colunga DO Primary Care Provider [phone] Encounter Details Date Type Department Care Team (Late st Contact Info) Description 10/04/2019 Telephone [facility] Oncology [address] [facility] 7th [place] [address] [place] [address] Marcie Price, RN Social History Tobacco Use Types Packs/Day Years Used Date Smoking Tobacco: Never Smokeless Tobacco: Never Sex and Gender Information Value Date Recorded Sex Assigned at Not on file Legal Sex Male 6:28 AM RN ORTHOPAEDIC Gender Identity Not on file Sexual Orientation Straight 08/22/2021 9: 23 AM CDT documented as of this encounter Miscellaneous Notes * Telephone Encounter - Marcie Price RN - 10/04/2019 10:34 AM RN ORTHOPAEDIC Notified pt's mom of PET and bx scheduled for 10/13. Details left on vm. She verbalized understanding and has no questions at this time. ORTHOPAEDIC documented in this encounter Plan of Treatment Scheduled Procedures Name Priority Associated Diagnoses Date/Ti me COLONOSCOPY Encounter for screening for colorectal cancer in high risk patient Family history of rectal cancer documented as of this encounter Visit Diagnoses Not on filedocumented in this encounter Care Teams Research Electrician Relationship Specialty Start Date End Date Guero Colunga DO [address] [facility] [address] [place] [address] PCP - General Internal Medicine 03/22/19 04/18/23 Munira Rick, RN [address] [address] Stock Supervisor 04/01/18 documented as of this encounter
--- OUTSIDE RECORDS SUMMARY | 2024-10-28 06:25 | XMS_ITS | Encounter Summary ---
Author Organization [facility] Healthcare Address [address] [place] [address] Care Team Providers Care Scoop Operator Name Role Phone Munira Rick RN Unavailable [phone] Guero Colunga DO Primary Care Provider [phone] Encounter Details Date Type Department Care Team (Late st Contact Info) Description 06/23/2019 Telephone [facility] Transplant Liver [address] [facility] [phone] [place] [address] Munira Rick, RN [address] [facility] [address] [place] [address] Social History Tobacco Use Types Packs/Day Years Used Date Smoking Tobacco: Never Smokeless Tobacco: Never Sex and Gender Information Value Date Recorded Sex Assigned at Not on file Legal Sex Male 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 Gender Identity Not on file Sexual Orientation Straight 08/22/2021 9: 23 AM CDT documented as of this encounter Ordered Prescriptions Prescription Sig Dispense Quantity Refills Last Filled Start Date End Date valGANciclovir (VALCYTE) 450 mg tabletIndications: Other (complete free text reason below),CMV Viremia Take 2 tablets (900 mg total) by mouth 2 (two) times a day 120 tablet 2 06/23/2019 9 documented in this encounter Miscellaneous Notes * Telephone Encounter - Eli Brink - 06/23/2019 2:55 PM CDT SO entered in [id number] * Telephone Encounter - Munira Rick RN - 06/23/2019 2:47 PM CDT Reviewed active CMV with Dr. Bautista. Dr. Bautista reviewed records and pt needs to start treatment at valcyte 900 mg BID. PT is to have CMV PCR Qaunt checked with weekly and once negative will decrease dose. Call placed to pt, no answer. Left detailed message for him and his mom with the valctye dosing andweekly labs. Requested call back to confirm receipt. Will ask Victorina to please send new SO for weekly CMV PCR Quant, CMP, GGT, CBC, and tacrolimus level. Thank you. documented in this encounter Plan of Treatment Scheduled Procedures Name Priority Associated Diagnoses Date/Ti me COLONOSCOPY Encounter for screening for colorectal cancer in high risk patient Family history of rectal cancer documented as of this encounter Visit Diagnoses Not on filedocumented in this encounter Discontinued Medications Medication Sig Discontinue Reason Start Date End Da te valGANciclovir (VALCYTE) 450 mg tabletIndications:CMV VIremia Take 1 tablet (450 mg total) by mouth 2 (two) times a day 05/22/2019 06/23/2019 documented as of this encounter Care Teams Scoop Operator Relationship Specialty Start Date End Date Guero Colunga DO [address] [facility] [address] [place] [address] PCP - General Internal Medicine 03/22/19 04/18/23 Munira Rick RN [address] [facility] [address] [place] [address] Prenatal Teacher 04/01/18 documented as of this encounter
--- OUTSIDE RECORDS SUMMARY | 2024-10-28 06:25 | XMS_ITS | Encounter Summary ---
Author Organization [facility] Healthcare Address [address] [place] [address] Care Team Providers Care Barrel Roller Operator Name Role Phone Munira Lee RN Unavailable [phone] Guero Colunga DO Primary Care Provider [phone] Encounter Details Date Type Department Care Team (Late st Contact Info) Description 05/22/2019 Telephone [facility] Liver [address] [facility] [id number] [place] [address] Sharita Valdez Social History Tobacco Use Types Packs/Day Years Used Date Smoking Tobacco: Never Smokeless Tobacco: Never Sex and Gender Information Value Date Recorded Sex Assigned at Not on file Legal Sex Male 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 ART FRAMING MANAGER Gender Identity Not on file Sexual Orientation Straight 08/22/2021 9: 23 AM CDT documented as of this encounter Ordered Prescriptions Prescription Sig Dispense Quantity Refills Last Filled Start Date End Date valGANciclovir (VALCYTE) 450 mg tabletIndications: CMV VIremia Take 1 tablet (450 mg total) by mouth 2 (two) times a day 60 tablet 05/22/2019 06/23/2019 documented in this encounter Miscellaneous Notes * Addendum Note - Munira Lee RN - 05/22/2019 3:18 PM CDTAddended by: MUNIRA LEE on: 05/22/2019 03:18 PM Modules accepted: Orders * Telephone Encounter - Munira Lee RN - 05/22/2019 3:15 PM CDT Reviewed plan for valcyte with Dr. Gresham. Pt is to have SO repeated with CMV PCR Quant. If CMV PCR Quant is ND- pt may stop Valctye. Call placed to pt, spoke with mom- she will have pt go for labs. Sent one month supply to pharm with 0 refills. Will ask Tarik to please fax order placed for CMV DNA PCR to [facility]. Thank you. * Telephone Encounter - Sharita Valdez - 05/22/2019 11:00 AM CDT Nickaracelyadelaidas on [facility] in [place] left asking for return call at [phone] to refill Valgancyclovir 450mg BID. documented in this encounter Plan of Treatment [...] mouth 2 (two) times a day Reorder 02/13/2019 05/22/2019 documented as of this encounter Care Teams Barrel Roller Operator Relationship Specialty Start Date End Date Guero Colunga DO [address] [address] PCP - General Internal Medicine 03/22/19 04/18/23 Munira Lee RN [address] [address] Supervisor Pumping 04/01/18 documented as of this encounter
--- OUTSIDE RECORDS SUMMARY | 2024-10-28 06:25 | XMS_ITS | Encounter Summary ---
Author Organization [facility] Address [address] [place] [address] Phone Care Team Providers Care Sculpture Conservator Name Role Phone Munira Rick RN Unavailable [phone] Guero Colunga DO Primary Care Provider [phone] Reason for Visit * Reason Onset Date Comments URI 10/10/2019 Encounter Details Date Type Department Care Team (Late st Contact Info) Description 10/10/2019 Telephone 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 She shared that he has been running fevers and has a very productive cough. He had some episodes of emesis from the degree of the coughing as well. He also has found it more difficult to breathe. I have asked that they come to the [facility] for further evaluation including chest x-ray, respiratory swab, influenza swab, and blood cultures. They are agreeable to this plan. Report has been called to the [facility] PATHOLOGY LABORATORY TECHNOLOGIST. MACHINE OPERATOR documented in this encounter Plan of Treatment Scheduled Procedures Name Priority Associated Diagnoses Date/Ti me COLONOSCOPY Encounter for screening for colorectal cancer in high risk patient Family history of rectal cancer documented as of this encounter Visit Diagnoses Not on filedocumented in this encounter Care Teams Sculpture Conservator Relationship Specialty Start Date End Date Guero Colunga DO [address] [place] [address] PCP - General Internal Medicine 03/22/19 04/18/23 Muniar Rick RN [address] [place] [address] Puff Iron Operator 04/01/18 documented as of this encounter
--- OUTSIDE RECORDS SUMMARY | 2024-10-28 06:25 | XMS_ITS | Encounter Summary ---
Author Organization [facility] Healthcare Address [address] [place] [address] Care Team Providers Care Supervisor Picking Crew Name Role Phone Kali Cruz MD Primary Care Provider [phone] Munira Rick RN Unavailable [phone] Reason for Visit * Reason Comments Sore Throat Encounter Details Date Type Department Care Team (Late st Contact Info) Description 03/10/2019 9:05 AM CDT - 03/10/2019 12:55 PM CDT Emergency [facility] Emergency Department [address] [place] [id number] Ramses Weaver MD [address] [facility] [address] [place] [address] 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); Cervical lymphadenopathy; Odynophagia; Sore throat Discharge Disposition: Discharge to home or self care Social History Tobacco Use Types Packs/Day Years Used Date Smoking Tobacco: Never Smokeless Tobacco: Never Sex and Gender Information Value Date Recorded Sex Assigned at Not on file 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 Gender Identity Not on file Sexual Orientation Straight 08/22/2021 9: 23 AM CDT documented as of this encounter Last Filed Vital Signs Vital Sign Reading Time Taken Comments Blood Pressure 119/67 03/10/2019 12:30 PM CDT Pulse 81 03/10/2019 12:30 PM CDT Temperature 37.3 ??C (99.1 ??F) 03/10/2019 8:57 AM CD T Respiratory Rate 23 03/10/2019 12:30 PM CDT Oxygen Saturation 98% 03/10/2019 12:30 PM CDT Inhaled Oxygen Concentration - - Weight 59 kg (130 lb) 03/10/2019 8:57 AM CDT Height 172.7 cm (5' 8 ) 03/10/2019 8:57 AM CDT Body Mass Index 19.77 03/10/2019 8:57 AM CDT documented in this encounter Discharge Instructions * Discharge Instructions* Jose Dorsey MD - 03/10/2019 12:30 PM CDT Please use lidocaine solution as needed for pain, take as prescribed. Use tylenol and ibuprofen regularly for pain. Stay well hydrated. Please follow up with your primary care doctor in 2-3 days. If you have worsening pain, can't swallow your saliva, notice neck swelling, have difficulty with breathing, high fevers or any other concerning symptoms, please return to the emergency department * Attachments The following attachments cannot be sent through Care Everywhere. * Pharyngitis (Discharge Care) (Nigerian) documented in this encounter Medications at Time of Discharge lidocaine viscous (XYLOCAINE) 2 % solution Apply 15 mL to the mouth or throat every 3 (three) hours as needed (pain) 100 mL 03/10/2019 06/21/2019 tacrolimus (PROGRAF) 0.5 mg capsuleIndication s:History of liver transplant (CMS/HCC) (HCC) Take 1 capsule (0.5 mg total) by mouth 2 (two) times a day 180 capsule 3 02/13/2019 03/20/2020 valGANciclovir (VALCYTE) 450 mg tabletIndications :CMV VIremia Take 1 tablet (450 mg total) by mouth 2 (two) times a day 60 tablet 2 02/13/2019 05/22/2019 documented as of this encounter Ordered Prescriptions Prescription Sig Dispense Quantity Refills Last Filled Start Date End Date lidocaine viscous (XYLOCAINE) 2 % solution Apply 15 mL to the mouth or throat every 3 (three) hours as needed (pain) 100 mL 03/10/2019 06/21/2019 documented in this encounter Discharge Disposition Disposition Code Departure Means Destination Discharge to home or self care documented in this encounter ED Notes * Ramses Weaver MD - 03/10/2019 10:47 AM CDT HPI Chief Complaint Patient presents with ??? Sore Throat HPI HPI: Beka Nichols is a 24 y.o. male with a PMHx of liver txp, ??EBV+ PTLD, NHL s/p CTX , presenting with sore throat. Pt States was well until 5pm yesterday when started having sore throat - pain initially with solid and liquids, now having pain with secretions. Endorses pain in neck with movements and tongue protrusion, trismus and hoarseness. Endorses chills, but no documented fever. No CP, no difficulty with breathing. No abdominal pain, N/V. Pt had excisional LN biopsy to R anterior cervical LN in december, over concerns for recurrence of malignancy PMHx, SOCIAL / FAMILY HISTORY: SH: denies smoking , drinks socially, denies drug use FH: HTN I have read and agree with the pertinent medical/surgical history, psychiatric history, social history, and family history as documented by nursing. REVIEW OF SYSTEMS: ROS: no chest pain. All others negative except as mentioned in the HPI PHYSICAL EXAM: VS Reviewed - CONSTITUTIONAL: Well-developed, well-nourished. - HEAD: Normocephalic, atraumatic. - EYES: EOMI, no conjunctival injection. - NECK: Pain with movement in all planes. No swelling noted. Tenderness to R submandibular and anterior chain LN with palpable LAD. Mild tenderness to L anterior neck. - oropharynx - mild erythema, no unilateral swelling or exudate, uvula midline - CARDS: Regular rate and rhythm, no murmurs appreciated. - RESP: Breath sounds clear b/l. Breathing unlabored. - ABD: Soft, non-tender w/o guarding or rebound. - EXT: Full ROM x4. Distal pulses intact. No edema. - SKIN: Warm and dry. No rashes. - NEURO: Alert, CN II-XII intact. Grossly intact w no focal abnormality. - PSYCH: Appropriate mood and affect. MEDICAL DECISION MAKING: - 24 yo M immunosupressed on tacro for liver tx with hx of NHL and recent neck dissection here withsore throat, neck pain and trismus. Tolerating secretions currently. Vitals WNL. Concern for deep space neck infection, vs viral pharyngitis, no evidence of HSV/CMV plaques - pt also on usp valg ancyclovir. Plan for labs, CXR and CT neck. Analgesia with toradol and topical anesthetic. dispo per workup Signed by Ramses Weaver MD, 03/11/19 8:30 AM. Patient History Patient Active Problem List Diagnosis Date Noted ??? Pain at surgical site 01/06/2019 ??? Immunocompromised patient (CMS/HCC) 01/06/2019 ??? Healthcare-associated pneumonia 01/06/2019 ??? Cough with fever 01/06/2019 ??? Diffuse lymphadenopathy 01/06/2019 ??? 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 History of liver transplant (CMS/HCC) 06/06/2014 ??? 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 US GUIDED BIOPSY LIVER N/A 10/18/2018 Family History Problem Relation Age of Onset [...] Conv) Review of Systems Review of Systems Physical Exam ED Triage Vitals [03/10/19 0857] Temp Pulse Resp BP SpO2 37.3 ??C (99.1 ??F) 95 18 114/76 96 % Temp src Heart Rate Source Patient Position BP Location FiO2 (%) Oral -- -- -- -- Physical Exam MDM MDM Attending Summary of Care ED Course as of Mar 11 830 Time: 03/10 1016 Value: WBC(!): 14.5 Comment: (Reviewed) By: Jose Dorsey MD Time: 03/10 1118 Comment: Patient pain improving, CT neg for abscess or collections. Plan to trial PO By: Jose Dorsey MD Time: 03/10 1216 Comment: Spoke with oncology, will update Dr. Head team for follow up. 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 Reports unable to swallow secretions due to pain. Denies shortness of breath Has hx of non- hodkins lymphoma documented in this encounter Plan of Treatment Scheduled Procedures Name Priority Associated Diagnoses Date/Ti ri COLONOSCOPY Encounter for screening for colorectal cancer in high risk patient Family history of rectal cancer documented as of this encounter Procedures Procedure Name Priority Date/Time Associated Diagnosis Comments XR CHEST PA LATERAL 2 VIEWS ED 03/10/2019 10:[address] SOFT TISSUE NECK W CONTRAST ED 03/10/2019 10:18 AM CDT POCT CREATININE - DEVICE Routine 03/10/2019 10:01 AM CDT SEPSIS LACTATE WITH REFLEX STAT 03/10/2019 9:48 AM CDT DIFFERENTIAL AUTO STAT 03/10/2019 9:4 8 AM CDT CBC WITH AUTO DIFFERENTIAL STAT 03/10/2019 9:48 AM CDT APTT STAT 03/10/2019 9:48 AM CDT PROTIME-INR STAT 03/10/2019 9:48 AM CDT BASIC METABOLIC PANEL STAT 03/10/2019 9:48 AM CDT documented in this encounter Results * XR Chest Pa Lateral 2 Vw (03/10/2019 10:19 AM CDT) Anatomical Region Laterality Modality Body, Chest N/A Computed Radiogr aphy 03/10/2019 10:2 6 AM CDT Impressions 03/10/2019 10:33 AM CDT Comparison is made to prior chest radiograph dated 12/17/2017. There are postsurgical changes of orthotopic liver transplantation with surgical clips projecting over upper abdominal quadrants, unchanged. ??There has been interval removal of a right-sided internal jugular port catheter. ??Surgical clips project over the soft tissues of the right neck. Lungs are clear without focal consolidation. No pneumothorax or pleural effusion. The cardiac size and mediastinal silhouette are within normal limits. ?? Dictated by: Mary Hutchinson M.D. The radiology attending physician has personally reviewed this study, and had reviewed and/or edited this written report and agrees with it. Electronically signed by: Robert Gilman M.D., MPH Narrative 03/10/2019 10:33 AM CDT EXAMINATION: XR CHEST PA LATERAL 2 VIEWS HISTORY: 24 years-old Male with history of B-cell lymphoma, liver transplantation and post transplant lymphoproliferative leads presenting with sore throat and difficulty swallowing. Procedure Note Robert Gilman MD - 03/10/2019 EXAMINATION: XR CHEST PA LATERAL 2 VIEWS HISTORY: 24 years-old Male with history of B-cell lymphoma, liver transplantation and post transplant lymphoproliferative leads presenting with sore throat and difficulty swallowing. IMPRESSION: Comparison is made to prior chest radiograph dated 12/17/2017. There are postsurgical changes of orthotopic liver transplantation with surgical clips projecting over upper abdominal quadrants, unchanged. There has been interval removal of a right-sided internal jugular port catheter. Surgical clips project over the soft tissues of the right neck. Lungs are clear without focal consolidation. No pneumothorax or pleural effusion. The cardiac size and mediastinal silhouette are within normal limits. Dictated by: Mary Hutchinson M.D. The radiology attending physician has personally reviewed this study, and had reviewed and/or edited this written report and agrees with it. Electronically signed by: Robert Gilman M.D., MPH us Jose Dorsey MD IMG XR PROCEDURES Final Resu lt * CT Neck Soft Tissue W Contrast (03/10/2019 10:18 AM CDT) Anatomical Region Laterality Modality Head and Neck N/A Computed Tomogra phy 03/10/2019 11:0 7 AM CDT Impressions 03/10/2019 3:59 PM CDT 1. ??Diffuse enhancement of the nasopharyngeal and oropharyngeal mucosa, not substantially changed from prior exam, which could be mucositis. 2. ??Diffuse cervical lymphadenopathy, mildly decreased from prior exam. 3. ??No organized fluid collection. Dictated by: Lucien Olivarez M.D. The radiology attending physician has personally reviewed this study, and had reviewed and/or edited this written report and agrees with it. Electronically signed by: Gallito Martel M.D. Narrative 03/10/2019 3:59 PM CDT EXAMINATION: CT of the neck [...] prominent lymph nodes in the upper mediastinum. ??They are prominent but not-enlarged bilateral posterior triangular lymph nodes, worse on the right side. ??Along the jugulodigastric chain, there are homogenous enhancing lymph nodes in the submandibular submental spaces, which have mildly decreased in size compared to prior exam. ?? There is persistently enhancing mucosal surface in [...] are normal. The limited view of the [place] is unremarkable. The visualized portions of the orbits are normal. ??There is mild mucosal thickening in the left maxillary sinus. The spinal canal is normal in caliber. Intervertebral disk heights are normal. Neural foramina are normal. 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 ??There is reversal of cervical versus with focal kyphosis at C4-C5. ??No osseous aggressive lesion identified. Limited examination of the superior thorax shows no pulmonary infiltrate, suspicious nodules, or pleural effusions. Procedure Note Gallito Martel MD - 03/10/2019 EXAMINATION: CT of the neck with contrast [...] are normal. The limited view of the [place] is unremarkable. The visualized portions [...] pulmonary infiltrate, suspicious nodules, or pleural effusions. IMPRESSION: 1. Diffuse enhancement of the nasopharyngeal and [...] it. Electronically signed by: Gallito Martel M.D. Jose Dorsey MD IMG CT PROCEDURES Final Resu lt * (ABNORMAL) POCT creatinine (03/10/2019 10:01 AM CDT) Creatinine POC 0.5(L) 0.7 - 1.3 mg/dL [facility] Blood specimen (specimen) 03/10/2019 10:01 AM CDT 03/10/2019 10:01 AM CDT Narrative [facility] - 03/10/2019 10:21 AM CDT us Notinfile Unknown LAB POCT ORDERABLES - DEVICE F inal Result [facility] Department [place] [address] * (ABNORMAL) Differential, auto (03/10/2019 9:48 AM CDT) Neutrophil abs 9.2(H) 1.7 - 6.5 K/cumm [facility] Imm gran abs 0.5(H) 0.0 - 0.1 K/cumm [facility] Lymphocyte abs 2.6 0.8 - 3.3 K/cumm [facility] Monocyte abs 2.0(H) 0.2 - 0.8 K/cumm [facility] Eosinophil abs 0.0 0.0 - 0.5 K/cumm [facility] Basophil abs 0.1 0.0 - 0.1 K/cumm [facility] Neutrophil pct 63.5 % [facility] Comment: Interpretive Data Percent cell count reference ranges are not reported, since discordance with absolute values may lead to misinterpretation of CBC data. Current Interpretive Data was last revised on 2018. Imm gran pct 3.7 % [facility] Comment: Interpretive Data Percent cell count reference ranges are not reported, since discordance with absolute values may lead to misinterpretation of CBC data. Current Interpretive Data was last revised on 2018. Lymphocyte pct 18.1 % [facility] Comment: Interpretive Data Percent cell count reference ranges are not reported, since discordance with absolute values may lead to misinterpretation of CBC data. Current Interpretive Data was last revised on 2018. Monocyte pct 13.7 % [facility] Comment: Interpretive Data Percent cell count reference ranges are not reported, since discordance with absolute values may lead to misinterpretation of CBC data. Current Interpretive Data was last revised on 2018. Eosinophil pct 0.2 % [facility] Comment: Interpretive Data Percent cell count reference ranges are not reported, since discordance with absolute values may lead to misinterpretation of CBC data. Current Interpretive Data was last revised on 2018. Basophil pct 0.8 % [facility] Comment: Interpretive Data Percent cell count reference ranges are not reported, since discordance with absolute values may lead to misinterpretation of CBC data. Current Interpretive Data was last revised on 2018. Blood specimen (specimen) 03/10/2019 9:48 AM CDT 03/10/2019 9:58 AM CDT Narrative [facility] - 03/10/2019 10:05 AM CDT Jose Dorsey MD LAB BLOOD ORDERABLES Final R esult [facility] One [facility] Department [place] [address] * Protime-INR (03/10/2019 9:48 AM CDT) PT 11.8 8.5 - 13.0 sec [facility] INR 1.10 0.80 - 1.21 [facility] Comment: Interpretive Data Inpatient therapeutic ranges* Atrial fibrillation ?2.0-3.0 INR Venous thrombo-embolism ?2.0-3.0 INR Bioprosthetic heart valve ?* Mechanical heart valve, bileaflet or tilting disk,aortic position ? 2.0-3.0 INR All other,or bileaflet or tilting disk, in mitral position ? 2.5-3.5 INR *See the pharmacy resource directory (PHRED) for an updated copy of the Tool Book at [email or web address]/pharmacy.nsf Current Interpretive Data was last revised 2012. Blood specimen (specimen) 03/10/2019 9:48 AM CDT 03/10/2019 9:54 AM CDT Narrative [facility] - 03/10/2019 10:20 AM CDT THE COLLECTION LOCATION IS [facility] CC06 us Jose Dorsey MD LAB BLOOD ORDERABLES Final R esult Performing Organization Address City/[facility]/ZIP Co de Phone Number [facility] [employer] [place] [address] * aPTT (03/10/2019 9:48 AM CDT) aPTT 28.4 25.0 - 37.0 sec [facility] Comment: Interpretive Data Therapeutic heparin range:60.0 - 94.0 sec based on correlation with therapeutic heparin activity range of 0.3 -0.7 Units/mL. Current interpretive data was last revised on 2011. Blood specimen (specimen) 03/10/2019 9:48 AM CDT 03/10/2019 9:54 AM CDT Narrative [facility] - 03/10/2019 10:19 AM CDT THE COLLECTION LOCATION IS [facility] Jose Dorsey MD LAB BLOOD ORDERABLES Final R esult Performing Organization Address [facility] [place] [address] * Sepsis Lactate w/ Reflex (03/10/2019 9:48 AM CDT) Pathologist [facility] Sepsis Lactate 1.7 0.7 - 2.0 mmol/L [facility] Blood specimen (specimen) 03/10/2019 9:48 AM CDT 03/10/2019 9:54 AM CDT Narrative [facility] - 03/10/2019 10:01 AM CDT THE COLLECTION LOCATION IS [facility] CC-06 us Jose Dorsey MD LAB BLOOD ORDERABLES Final R esult Performing Organization Address City/[facility]/ZIP Co de Phone Number [facility] [place] [address] * (ABNORMAL) Basic metabolic panel (03/10/2019 9:48 AM CDT) Pathologist [facility] Sodium 141 135 - 145 mmol/L [facility] Potassium, pl 4.7 3.3 - 4.9 mmol/L [facility] Chloride 109 97 - 110 mmol/L [facility] CO2 24 22 - 32 mmol/L [facility] Anion gap 8 2 - 15 mmol/L [facility] BUN 7(L) 8 - 25 mg/dL [facility] Creatinine 0.91 0.80 - 1.30 mg/dL [facility] Glucose 94 70 - 199 mg/dL [facility] Comment: Interpretive Data Fasting glucose >/= 126 [...] 2017. Calcium 9.4 8.5 - 10.3 mg/dL [facility] Blood specimen (specimen) 03/10/2019 9:48 AM CDT 03/10/2019 9:58 AM CDT Narrative [facility] - 03/10/2019 10:24 AM CDT THE COLLECTION LOCATION IS [address] us Jose Dorsey MD LAB BLOOD ORDERABLES Final R esult [facility] One [facility] Department [place] [address] * (ABNORMAL) CBC with auto differential (03/10/2019 9:48 AM CDT) Pathologist [facility] WBC 14.5(H) 3.8 - 9.9 K/cumm [facility] Hgb 16.6 13.0 - 17.5 g/dL [facility] Hct 47.8 38.9 - 50.3 % [facility] Plt 233 150 - 400 K/cumm [facility] MPV 11.7 9.1 - 12.3 fL [facility] RBC 5.05 4.30 - 5.80 M/cumm [facility] MCV 94.7 81.3 - 96.4 fL [facility] MCH 32.9 27.1 - 33.3 pg [facility] MCHC 34.7 32.3 - 35.7 g/dL [facility] RDW CV 14.1 11.1 - 14.9 % [facility] RDW SD 49.1(H) 35.7 - 48.1 fL [facility] NRBC abs 0.00 0.00 - 0.01 K/cumm [facility] Blood specimen (specimen) 03/10/2019 9:48 AM CDT 03/10/2019 9:58 AM CDT Narrative [facility] - 03/10/2019 10:05 AM CDT THE COLLECTION LOCATION IS [facility] us Jose Dorsey MD LAB BLOOD ORDERABLES Final R esult [facility] One [facility] Department [place] [address] documented in this encounter Visit Diagnoses Diagnosis 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 (HCC)- Primary Cervical lymphadenopathy Enlargement of lymph nodes Odynophagia Dysphagia, unspecified Sore throat Acute pharyngitis documented in this encounter Administered Medications Inactive Administered Medications - up to 3 most recent administrations Medication Order MAR Action Action Date Dose Rate Site acetaminophen (TYLENOL) tablet 1,000 mg 1,000 mg, oral, Once, On Wed03/10/19 at 1119, For 1 dose Given 03/10/2019 11:47 AM CDT 1,000 mg benzocaine (HURRICAINE) 20 % mouth spray 1 spray 1 spray, mouth/throat, Once, On Wed03/10/19 at 0947, For 1 dose, [place] to back of throat Given 03/10/2019 10:00 AM CDT 1 spray ioversol (OPTIRAY 350) syringe syringe 100 mL 100 mL, intravenous, Once in imaging, contrast, Starting on Wed03/10/19 at 1018, For 1 dose Given 03/10/2019 10:18 AM CDT 100 mL ketorolac (TORADOL) injection 30 mg 30 mg, intravenous, Once, On Wed03/10/19 at 0947, For 1 dose, For Adult IV push, administer over 15 seconds, Indications: PainIndications:Pain Given 03/10/2019 10:00 AM CDT 30 mg documented in this encounter Discontinued Medications Medication Sig Discontinue Reason Start Date End Da te senna-docusate (PERICOLACE) 8.6-50 mgIndications:constipati on,Take it as long as you are taking oxycodone Take 2 tablets by mouth daily Therapy completed 01/06/2019 03/10/2019 documented as of this encounter Active and Recently Administered Medications Times are shown in CDT. Scheduled Medication Order 03/08/2019 03/09/2019 03/10/2019 acetaminophen (TYLENOL) tablet 1,000 mg (COMPLETED) 1,000 mg, oral, Once, On Wed03/10/19 at 1119, For 1 dose 1147 (Given - Provid er: aNncy Cunningham RN) benzocaine (HURRICAINE) 20 % mouth spray 1 spray (COMPLETED) 1 spray, mouth/throat, Once, On Wed03/10/19 at 0947, For 1 dose, [place] to back of throat 1000 (Given - Provid er: Nancy Cunningham RN) ketorolac (TORADOL) injection 30 mg (COMPLETED) 30 mg, intravenous, Once, On Wed03/10/19 at 0947, For 1 dose, For Adult IV push, administer over 15 seconds, Indications: Pain 1000 (Given - Provid er: Nancy Cunningham RN - Comment: stop time 1002) PRN Medication Order 03/08/2019 03/09/2019 03/10/2019 ioversol (OPTIRAY 350) syringe syringe 100 mL (COMPLETED) 100 mL, intravenous, Once in imaging, contrast, Starting on Wed03/10/19 at 1018, For 1 dose 1018 (Given - Provid er: Levi RuizRT) documented in this encounter Care Teams Supervisor Picking Crew Relationship Specialty Start Date End Date Kali Cruz MD [address] [place] [address] PCP - General 04/09/17 03/21/19 Munira Rick, RN [address] [facility] [address] [place] [address] Systems Tester 04/01/18 documented as of this encounter
--- OUTSIDE RECORDS SUMMARY | 2024-10-28 06:25 | XMS_ITS | Encounter Summary ---
Author Organization [facility] Address [address] [place] [address] Phone Care Team Providers Care Chisel Grinder Name Role Phone Munira Rick RN Unavailable [phone] [facility] Guero Colunga DO Primary Care Provider [phone] Encounter Details Date Type Department Care Team (Late st Contact Info) Description 10/04/2019 9:00 AM EDUCATION GENERAL MANAGER Office Visit [facility] Oncology [address] [facility] Advanced Medicine 7th [place] [address] [place] [id number] Anita Gillespie MD [address] [facility] [address] [place] [address] High grade B-cell lymphoma (CMS/HCC) (Primary Dx); 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) Social History Tobacco Use Types Packs/Day Years Used Date Smoking Tobacco: Never Smokeless Tobacco: Never Sex and Gender Information Value Date Recorded Sex Assigned at Not on file Legal Sex Male 6:28 AM EDUCATION GENERAL MANAGER Gender Identity Not on file Sexual Orientation Straight 08/22/2021 9: 23 AM CDT documented as of this encounter Last Filed Vital Signs Vital Sign Reading Time Taken Comments Blood Pressure 103/69 10/04/2019 8:48 AM EDUCATION GENERAL MANAGER Pulse 84 10/04/2019 8:48 AM EDUCATION GENERAL MANAGER Temperature 37.1 ??C (98.7 ??F) 10/04/2019 8:48 AM CS T Respiratory Rate 18 10/04/2019 8:48 AM EDUCATION GENERAL MANAGER Oxygen Saturation 95% 10/04/2019 8:48 AM EDUCATION GENERAL MANAGER Inhaled Oxygen Concentration - - Weight 56.5 kg (124 lb 9.6 oz) 10/04/2019 8:48 A M EDUCATION GENERAL MANAGER Height - - Body Mass Index 18.95 10/04/2019 7:48 AM EDUCATION GENERAL MANAGER documented in this encounter Progress Notes * Anita Gillespie MD - 10/04/2019 12:00 AM CST PATIENT NAME: ADI NICHOLS : 1995 JUSTEN: 10/04/2019 DIAGNOSES: 1. 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 2. 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 3. Bilateral pulmonary emboli diagnosed on 10/19/2017. TREATMENT AND DISEASE COURSE: 1. R-CHOP x 1, 08/25/2017. 2. Dose adjusted EPOCH-R x 5, 09/15/2017 - 12/2017. Post-C2 PET: MI (5PS = 4), CR post C5 3. IT chemotherapy (MTX), only with cycle 3 on 10/06/2017, complicated by intracranial hypotension. 4. R cervical LNBx, 01/06/19, EBV+ florid follicular hyperplasia, c/w possible early PTLD. INTERVAL HISTORY: Mr. Nichols returns to the [facility] for continued follow-up of his history of c-MYC positive, EBV positive PTLD. I last saw him on 06/21/2019. He was doing well until several days ago when new lymph nodes popped up on both sides of his neck. He also has been waking up with night sweats for the last several days. He has a mild cough but has not noted any fevers. He denies abdominal pain or bloating or lower extremity edema. PHYSICAL EXAMINATION: General: Well-appearing young man who is accompanied by his mother. Performance Status: 0. Vital Signs: Blood pressure 103/69, pulse 84, temperature 37.1, O2 sat 95%. Weight 56.5 kg. BMI 18.9. Lungs: Clear to auscultation. Nodes: 3.5 x 2.5 cm right jugulodigastric, 2 x 1.5 cm left posterior auricular, 3.5 x 3 cm left midposterior cervical, 2 low left posterior cervical nodes the more anterior one measuring 1 cm and more posterior one measuring 2 x 2 cm. There is swelling underlying the left sternocleidomastoid muscle and left jugulodigastric fullness. 2 cm low anterior left axillary and two 1 cm nodes in the high posterior left axillary region, mobile 1 cm right axillary, 1.5 x 1 cm mid left inguinal, subcentimeter right inguinal. HEENT: Oropharynx and oral cavity: Right tonsil is enlarged. There is no exudate. Abdomen: No hepatosplenomegaly. Extremities: No edema. LABORATORIES: CMP remarkable for a protein of 6.2, alk phos 292, AST 45, ALT 37, total bili 0.7, LDH 275. WBC 16.8, hemoglobin 15.2, hematocrit 45.2, platelets 313, ANC 9.5, ALC 3.4. IMPRESSION AND PLAN: 1. History of c-MYC positive posttransplant lymphoproliferative disorder, Nadine-De La Cruz virus positive, stage EMY, IPI 3 (stage, LDH, extranodal sites). This 24-year-old gentleman is now 21 months status post 5 cycles of dose- adjusted EPOCH-R with 3 doses of intrathecal methotrexate for SENIOR INFRASTRUCTURE ARCHITECT prophylaxis. He has had a dramatic increase in his adenopathy over the last last few weeks, in addition to new night sweats. I had a long discussion with Adi and his mom regarding the possibility of recurrent aggressive lymphoma versus progression of his polymorphic PTLD. We will proceed with a PET-CT and core needle biopsy of the hottest cervical node. We will see him back when those results become a vailable. If he has recurrent large cell lymphoma, we will consider either R- ICE, R-GemOx or R-DHAXas salvage therapy depending on the extent of his disease. The recommended therapy would be consolidation with an autologous stem cell transplant and I do not believe his previous liver transplant would preclude this approach. 2. History of liver transplant. The patient remains on tacrolimus 0.5 mg b.i.d. 3. Distant history of pulmonary embolus. This was an incidental finding in October 2017 and the patient has been off anticoagulation for over a year. ELECTRONICALLY SIGNED - 10/14/2019 01:14 PM Anita Gillespie M.D. cylinder handler [facility] Chair in Medical Oncology NB/mlc cc: LENO AGUSTIN MD [address] [facility] [address], [place] [address] LINDA CHAPA MD [address] [place] [address] / ATION GENERAL MANAGER documented in this encounter Plan of Treatment Scheduled Procedures Name Priority Associated Diagnoses Date/Ti me COLONOSCOPY Encounter for screening for colorectal cancer in high risk patient Family history of rectal cancer documented as of this encounter Procedures Procedure Name Priority Date/Time Associated Diagnosis Comments FLOW LEUKEMIA/LYMPHOMA Routine 10/13/2019 12:09 PM EDUCATION GENERAL MANAGER documented in this encounter Results * (ABNORMAL) CBC with auto differential (11/22/2019 8:23 AM EDUCATION GENERAL MANAGER) WBC 6.9 3.8 - 9.8 K/cumm [facility] Comment:Testing performed by : [facility], [address] [place] [phone] Hgb 14.9 13.8 - 17.2 g/dL [facility] Comment:Testing performed by : [facility], [address] [place] [phone] Hct 44.0 40.7 - 50.3 % [facility] Comment:Testing performed by : [facility], [address] [place] [phone] Plt 292 140 - 440 K/cumm [facility] Comment:Testing performed by : [facility], [address] [place] [phone] MPV 7.4 6.8 - 10.4 fL [facility] Comment:Testing performed by : [facility], [address] [place] [phone] RBC 4.52 4.50 - 5.70 M/cumm [facility] Comment:Testing performed by : [facility], [address] [place], [place] [phone] MCV 97.2 80.0 - 97.6 fL [facility] Comment:Testing performed by : [facility], [address] [place] [phone] MCH 33.0 26.7 - 33.7 pg [facility] Comment:Testing performed by : [facility], [address] [place], [place] [phone] MCHC 33.9 32.7 - 35.5 g/dL [facility] Comment:Testing performed by : [facility], [address] [place], [place] [phone] RDW CV 14.9(H) 11.8 - 14.6 % [facility] Comment:Testing performed by : [facility], [address] [place] [phone] NRBC abs 0.00 0.00 - 0.01 K/cumm [facility] Comment:Testing performed by : [facility], [address] [place] [phone] Blood specimen (specimen) 11/22/2019 8:23 AM EDUCATION GENERAL MANAGER 11/22/2019 8:26 AM EDUCATION GENERAL MANAGER Anita Gillespie MD LAB BLOOD ORDERABLES Final Result Performing Organization Address [facility]/ZIP Co de Phone Number [facility] [place] [address] * (ABNORMAL) Lactate dehydrogenase (LD) (11/22/2019 8:23 AM EDUCATION GENERAL MANAGER) Lactate dehydrogenase (LDH) 256(H) 100 - 250 Units/L [facility] Blood specimen (specimen) 11/22/2019 8:23 AM EDUCATION GENERAL MANAGER 11/22/2019 8:55 AM EDUCATION GENERAL MANAGER Anita Gillespie MD LAB BLOOD ORDERABLES Final Result Performing Organization Address [facility]/ZIP Co de Phone Number [facility] [place] [address] * (ABNORMAL) Comprehensive metabolic panel (11/22/2019 8:23 AM EDUCATION GENERAL MANAGER) Sodium 142 135 - 145 mmol/L [facility] Potassium, pl 4.2 3.3 - 4.9 mmol/L [facility] Chloride 107 97 - 110 mmol/L [facility] CO2 29 22 - 32 mmol/L [facility] Anion gap 6 2 - 15 mmol/L [facility] BUN 9 8 - 25 mg/dL [facility] Creatinine 0.81 0.80 - 1.30 mg/dL [facility] Glucose 76 70 - 199 mg/dL [facility] 8.8 8.5 - 10.3 mg/dL [facility] Bilirubin, total 0.5 0.1 - 1.2 mg/dL [facility] Protein, pl 6.0(L) 6.5 - 8.5 g/dL [facility] Albumin 4.0 3.5 - 5.0 g/dL [facility] Alk phos 457(H) 40 - 130 Units/L [facility] ALT 64(H) 7 - 55 Units/L [facility] AST 54(H) 10 - 50 Units/L [facility] Blood specimen (specimen) 11/22/2019 8:23 AM EDUCATION GENERAL MANAGER 11/22/2019 8:55 AM EDUCATION GENERAL MANAGER us Anita Gillespie MD LAB BLOOD ORDERABLES Final Result [facility] Department [place] [address] * Flow Leukemia/Lymphoma Lymph node (10/13/2019 12:09 PM EDUCATION GENERAL MANAGER) Leukemia/Lymp josé manuel Result See separate Surgical Pathology report. 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
--- OUTSIDE RECORDS SUMMARY | 2024-10-28 06:25 | XMS_ITS | Encounter Summary ---
Author Organization [facility] Healthcare Address [address] [place] [address] Care Team Providers Care Customer Care Agent Name Role Phone Munira Rick RN Unavailable [phone] Guero Colunga DO Primary Care Provider [phone] Encounter Details Date Type Department Care Team (Late st Contact Info) Description 07/26/2019 Telephone [facility] Transplant Liver [address] [facility] [address] [phone] [place], [place] [id number] Munira Rick, RN [address] [facility] [address] [place], [place] [id number] Social History Tobacco Use Types Packs/Day Years Used Date Smoking Tobacco: Never Smokeless Tobacco: Never Sex and Gender Information Value Date Recorded Sex Assigned at Not on file Legal Sex Male 6:28 AM OPTICAL GLASS ETCHER Gender Identity Not on file Sexual Orientation Straight 08/22/2021 9: 23 AM CDT documented as of this encounter Ordered Prescriptions Prescription Sig Dispense Quantity Refills Last Filled Start Date End Date valGANciclovir (VALCYTE) 450 mg tabletIndications: Other (complete free text reason below),CMV Viremia Take 1 tablet (450 mg total) by mouth daily 30 tablet 2 07/26/2019 09/12/2019 documented in this encounter Miscellaneous Notes * Telephone Encounter - Munira Rick RN - 07/26/2019 12:59 PM CDT Reviewed labs from 07/22/[address] Gresham. Pt is now CMV PCR (-). Pt may reduce dose of valcyte to 450 mg daily. Plan for pt to be on treatment for 3-4 months. Pt should continue with regular SO with CMV PCR Quants being monitored. Call placed to pt, no answer. Left VM with detailed message requesting call back. documented in this encounter Plan of [...] by mouth 2 (two) times a day 06/23/2019 07/26/2019 documented as of this encounter Care Teams Customer Care Agent Relationship Specialty Start Date End Date Guero Colunga DO [address] [place] [address] PCP - General Internal Medicine 03/22/19 04/18/23 Munira Rick, RN [address] [place] [address] Line Assembler Aircraft 04/01/18 documented as of this encounter
--- OUTSIDE RECORDS SUMMARY | 2024-10-28 06:25 | XMS_ITS | Encounter Summary ---
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) CT,LAB,ROV Procedures ONCBCN LAB APPOINTMENT ARM DRAW Anita Gillespie MD [address] [facility] [address] [place] [address] Phone: tel: fax: [facility] Oncology [facility] Advanced Medicine 7th [place] [address] [place] [address] Phone: tel: Referral ID Status Reason Start Date Expiration Date Visits Re quested Visits Authorized [id number] Closed 12/28/2018 10/31/2019 99 [phone] Encounter Details Date Type Department Care Team (Late st Contact Info) Description 06/21/2019 7:00 AM CDT Lab [facility] Oncology [address] [facility] Advanced [facility] 7th [place] [address] [place] [address] Anita Gillespie MD [address] [facility] [address] [place] [address] 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); History of liver transplant (CMS/HCC) Discharge Disposition: Discharge to home or self care Social History Tobacco Use Types Packs/Day Years Used Date Smoking Tobacco: Never Smokeless Tobacco: Never Sex and Gender Information Value Date Recorded Sex Assigned at Not on file Legal Sex Male 6:28 AM BENCH CHEMIST Gender Identity Not on file Sexual Orientation [...] Date/Time Associated Diagnosis Comments DIFFERENTIAL AUTO Routine 06/21/2019 6:5 2 AM CDT 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) CBC WITH AUTO DIFFERENTIAL Routine 06/21/2019 6:52 AM CDT 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) CYTOMEGALOVIRUS (CMV) DNA, QUANT GEN LAB Routine 06/21/2019 6:52 AM CDT History of liver transplant (CMS/HCC) LACTATE DEHYDROGENASE Routine 06/21/2019 6:52 AM CDT 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 (CMS/HCC) COMPREHENSIVE METABOLIC PANEL Routine 06/21/2019 6:52 AM CDT 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) documented in this encounter Results * (ABNORMAL) Differential, auto (06/21/2019 6:52 AM CDT) Neutrophil abs 9.1(H) 1.8 - 6.6 K/cumm [facility] Comment:Testing performed by : [facility], [address] [place] [phone] Lymphocyte abs 4.0(H) 1.2 - 3.3 K/cumm [facility] Comment:Testing performed by : [facility], [address] [place] [phone] Monocyte abs 2.6(H) 0.2 - 1.2 K/cumm [facility] Comment:Testing performed by : [facility], [address] [place] [phone] Eosinophil abs 0.6(H) 0.0 - 0.5 K/cumm [facility] Comment:Testing performed by : [facility], [address] [place] [phone] Basophil abs 0.1 0.0 - 0.2 K/cumm [facility] Comment:Testing performed by : [facility], [address] [place] [phone] Neutrophil pct 55.6 % [facility] Comment: Interpretive Data Percent cell count reference ranges are not reported, since discordance with absolute values may lead to misinterpretation of CBC data. Current Interpretive Data was last revised on 2018. Testing performed by: [facility], [address] [place] [phone] Lymphocyte pct 24.5 % [facility] Comment: Interpretive Data Percent cell count reference ranges are not reported, since discordance with absolute values may lead to misinterpretation of CBC data. Current Interpretive Data was last revised on 2018. Testing performed by: [facility], [address] [place] [phone] Monocyte pct 15.9 % [facility] Comment:Testing performed by : [facility], [address] [place] [phone] Eosinophil pct 3.4 % [facility] Comment:Testing performed by : [facility], [address] [place] [phone] Basophil pct 0.6 % [facility] Comment:Testing performed by : [facility], [address] [place] [phone] Blood specimen (specimen) 06/21/2019 6:52 AM CDT 06/21/2019 6:54 AM CDT us Anita Gillespie MD LAB BLOOD ORDERABLES Final Result [facility] One [facility] Department [place] [address] * (ABNORMAL) CBC with auto differential (06/21/2019 6:52 AM CDT) WBC 16.3(H) 3.8 - 9.8 K/cumm [facility] Comment:Testing performed by : [facility], [address] [place] [phone] Hgb 16.6 13.8 - 17.2 g/dL [facility] Comment:Testing performed by : [facility], [address] [place] [phone] Hct 47.7 40.7 - 50.3 % [facility] Comment:Testing performed by : [facility], [address] [place], [place] [phone] Plt 374 140 - 440 K/cumm [facility] Comment:Testing performed by : [address] [phone] MPV 7.3 6.8 - 10.4 fL [facility] Comment:Testing performed by : [place] [phone] RBC 4.92 4.50 - 5.70 M/cumm [facility] Comment:Testing performed by : [place] [phone] MCV 96.9 80.0 - 97.6 fL [facility] Comment:Testing performed by : [address] [phone] MCH 33.8(H) 26.7 - 33.7 pg [facility] Comment:Testing performed by : [address] [phone] MCHC 34.9 32.7 - 35.5 g/dL [facility] Comment:Testing performed by : [place] [phone] RDW CV 14.5 11.8 - 14.6 % [facility] Comment:Testing performed by : [address] [phone] NRBC abs 0.01 0.00 - 0.01 K/cumm [facility] Comment:Testing performed by : [facility], [address] [place] [phone] Blood specimen (specimen) 06/21/2019 6:52 AM CDT 06/21/2019 6:54 AM CDT Anita Gillespie MD LAB BLOOD ORDERABLES Final Result Performing Organization Address City[facility]/ZIP Co de Phone Number [facility] Department [place] [address] * (ABNORMAL) Cytomegalovirus (CMV) DNA PCR, quantitative Blood (06/21/2019 6:52 AM CDT) [facility] CMV DNA Detected( A) [facility] Comment: Interpretive Data: The quantifiable range of this assay is 137 IUnits/mL to 9,100,000 IUnits/mL (2.14 log IUnits/mL to 6.96 log IUnits/mL). Testing was performed by the [employer] AmpliPrep/NIA TaqMan CMV Test ([employer] Testing performed at [facility] Current interpretive data was last revised on 17. CMV DNA IU/mL 1,706 IUnits/mL [facility] CMV DNA log IU/mL 3.23 log IUnits/mL [facility] Blood specimen (specimen) 06/21/2019 6:52 AM CDT 06/21/2019 12:39 PM CDT us Theodore Gresham MD LAB MICROBIOLOGY - GENERAL ORDERABLES Final Result Performing Organization Address [facility]/ZIP Co de Phone Number [facility] [place] [address] * (ABNORMAL) Comprehensive metabolic panel (06/21/2019 6:52 AM CDT) [facility] Sodium 143 135 - 145 mmol/L [facility] Potassium, pl 4.6 3.3 - 4.9 mmol/L [facility] Chloride 108 97 - 110 mmol/L [facility] CO2 30 22 - 32 mmol/L [facility] Anion gap 5 2 - 15 mmol/L [facility] BUN 8 8 - 25 mg/dL [facility] Creatinine 1.07 0.80 - 1.30 mg/dL [facility] Glucose 92 70 - 199 mg/dL [facility] Comment: Interpretive Data Fasting glucose [...] 2017. Calcium 9.0 8.5 - 10.3 mg/dL [facility] Bilirubin, total 0.3 0.1 - 1.2 mg/dL [facility] Protein, pl 5.8(L) 6.5 - 8.5 g/dL [facility] Albumin 3.8 3.5 - 5.0 g/dL [facility] Alk phos 188(H) 40 - 130 Units/L [facility] ALT 35 7 - 55 Units/L [facility] AST 30 10 - 50 Units/L [facility] Blood specimen (specimen) 06/21/2019 6:52 AM CDT 06/21/2019 7:21 AM CDT us Anita Gillespie MD LAB BLOOD ORDERABLES Final Result [facility] One [facility] [place] [address] * Lactate dehydrogenase (LD) (06/21/2019 6:52 AM CDT) Lactate dehydrogenase (LDH) 240 100 - 250 Units/L [facility] Blood specimen (specimen) 06/21/2019 6:52 AM CDT 06/21/2019 7:21 AM CDT us Anita Gillespie MD LAB BLOOD ORDERABLES Final Result [facility] Department [place] [address] documented in this encounter Visit Diagnoses Diagnosis 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
--- OUTSIDE RECORDS SUMMARY | 2024-10-28 06:25 | XMS_ITS | Encounter Summary ---
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) CT,LAB,ROV Procedures ONCBCN LAB APPOINTMENT ARM DRAW Anita Gillespie MD [address] [facility] [address] [place] [address] Phone: tel: fax: [facility] Oncology [facility] 7th [place] [address] [place] [address] Phone: tel: Referral ID Status Reason Start Date Expiration Date Visits Re quested Visits Authorized [id number] Closed 12/28/2018 10/31/2019 99 [phone] Encounter Details Date Type Department Care Team (Late st Contact Info) Description 03/22/2019 7:30 AM CDT Lab [facility] Oncology [facility] 7th [place] [address] [place] [address] High grade B-cell lymphoma (CMS/HCC); 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) Social History Tobacco Use Types Packs/Day Years Used Date Smoking Tobacco: Never Smokeless Tobacco: Never Sex and Gender Information Value Date Recorded Sex Assigned at Not on file 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 Gender Identity Not on file Sexual Orientation Straight 08/22/2021 9: 23 AM CDT documented as of this encounter Plan of Treatment Scheduled Procedures Name Priority Associated Diagnoses Date/Ti me COLONOSCOPY Encounter for screening for colorectal cancer in high risk patient Family history of rectal cancer documented as of this encounter Procedures Procedure Name Priority Date/Time Associated Diagnosis Comments DIFFERENTIAL AUTO Routine 03/22/2019 7:4 5 AM CDT 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) CBC WITH AUTO DIFFERENTIAL Routine 03/22/2019 7:45 AM CDT 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) LACTATE DEHYDROGENASE Routine 03/22/2019 7:45 AM CDT 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) COMPREHENSIVE METABOLIC PANEL Routine 03/22/2019 7:45 AM CDT 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) documented in this encounter Results * Differential, auto (03/22/2019 7:45 AM CDT) Neutrophil abs 6.0 1.8 - 6.6 K/cumm [facility] Comment:Testing performed by : [facility], [address] [place] [phone] Lymphocyte abs 2.5 1.2 - 3.3 K/cumm [facility] Comment:Testing performed by : [facility], [address] [place] [phone] Monocyte abs 0.8 0.2 - 1.2 K/cumm [facility] Comment:Testing performed by : [facility], [address] [place] [phone] Eosinophil abs 0.1 0.0 - 0.5 K/cumm [facility] Comment:Testing performed by : [facility], [address] [place] [phone] Basophil abs 0.1 0.0 - 0.2 K/cumm [facility] Comment:Testing performed by : [facility], [address] [place] [phone] Neutrophil pct 63.0 % [facility] Comment: Interpretive Data Percent cell count reference ranges are not reported, since discordance with absolute values may lead to misinterpretation of CBC data. Current Interpretive Data was last revised on 2018. Testing performed by: [facility], [address] [place] [phone] Lymphocyte pct 26.2 % [facility] Comment: Interpretive Data Percent cell count reference ranges are not reported, since discordance with absolute values may lead to misinterpretation of CBC data. Current Interpretive Data was last revised on 2018. Testing performed by: [facility], [address] [place] [phone] Monocyte pct 8.4 % [facility] Comment:Testing performed by : [facility], [address] [place] [phone] Eosinophil pct 1.6 % [facility] Comment:Testing performed by : [facility], [address] [place] [phone] Basophil pct 0.8 % [facility] Comment:Testing performed by : [facility], [address] [place] [phone] Blood specimen (specimen) 03/22/2019 7:45 AM CDT 03/22/2019 7:47 AM CDT Narrative [facility] - 03/22/2019 7:53 AM CDT us Anita Gillespie MD LAB BLOOD ORDERABLES Final Result [facility] Department [place] [address] * (ABNORMAL) CBC with auto differential (03/22/2019 7:45 AM CDT) WBC 9.6 3.8 - 9.8 K/cumm [facility] Comment:Testing performed by : [facility], [address] [place], [place] [phone] Hgb 16.2 13.8 - 17.2 g/dL [facility] Comment:Testing performed by : [facility], [address] [place], [place] [phone] Hct 47.0 40.7 - 50.3 % [facility] Comment:Testing performed by : [facility], [address] [place] [address] Plt 585(H) 140 - 440 K/cumm [facility] Comment:Testing performed by : [place] [address] MPV 7.1 6.8 - 10.4 fL [facility] Comment:Testing performed by : [place] [address] RBC 4.80 4.50 - 5.70 M/cumm [facility] Comment:Testing performed by : [facility], [address] [place] [address] MCV 98.0(H) 80.0 - 97.6 fL [facility] Comment:Testing performed by : [facility], [address] [place] [address] MCH 33.7 26.7 - 33.7 pg [facility] Comment:Testing performed by : [place] [address] MCHC 34.4 32.7 - 35.5 g/dL [facility] Comment:Testing performed by : [facility], [address] [place] [address] RDW CV 14.3 11.8 - 14.6 % [facility] Comment:Testing performed by : [place] [address] NRBC abs 0.00 0.00 - 0.01 K/cumm [facility] Comment:Testing performed by : [place] [phone] Blood specimen (specimen) 03/22/2019 7:45 AM CDT 03/22/2019 7:47 AM CDT Narrative [facility] - 03/22/2019 7:53 AM CDT us Anita Gillespie MD LAB BLOOD ORDERABLES Final Result [facility] Department [place] [address] * (ABNORMAL) Comprehensive metabolic panel (03/22/2019 7:45 AM CDT) Sodium 140 135 - 145 mmol/L [facility] Potassium, pl 4.4 3.3 - 4.9 mmol/L [facility] Chloride 105 97 - 110 mmol/L [facility] CO2 28 22 - 32 mmol/L [facility] Anion gap 7 2 - 15 mmol/L [facility] BUN 17 8 - 25 mg/dL [facility] Creatinine 0.91 0.80 - 1.30 mg/dL [facility] Glucose 85 70 - 199 mg/dL [facility] Comment: Interpretive Data Fasting glucose [...] interpretive data was last revised 2017. Calcium 9.7 8.5 - 10.3 mg/dL [facility] Bilirubin, total 0.3 0.1 - 1.2 mg/dL [facility] Protein, pl 6.5 6.5 - 8.5 g/dL [facility] Albumin 4.3 3.5 - 5.0 g/dL [facility] Alk phos 197(H) 40 - 130 Units/L [facility] ALT 37 7 - 55 Units/L [facility] AST 27 10 - 50 Units/L [facility] Blood specimen (specimen) 03/22/2019 7:45 AM CDT 03/22/2019 8:52 AM CDT Narrative [facility] - 03/22/2019 9:26 AM CDT us Anita Gillespie MD LAB BLOOD ORDERABLES Final Result Performing Organization Address City/[facility]/ZIP Co de Phone Number [facility] Department [place] [address] * Lactate dehydrogenase (LD) (03/22/2019 7:45 AM CDT) Lactate dehydrogenase (LDH) 174 100 - 250 Units/L [facility] Blood specimen (specimen) 03/22/2019 7:45 AM CDT 03/22/2019 8:52 AM CDT Narrative [facility] - 03/22/2019 9:26 AM CDT us Anita Gillespie MD LAB BLOOD ORDERABLES Final Result Performing Organization Address [facility] Co de Phone Number [facility] [place] [address] documented in this encounter Visit Diagnoses Diagnosis High grade B-cell lymphoma (HCC) 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
--- OUTSIDE RECORDS SUMMARY | 2024-10-28 06:26 | XMS_ITS | Encounter Summary ---
Author Organization [facility] Address [address] [place] [address] Care Team Providers Care Aircraft Motor Mechanic Name Role Phone Kali Cruz MD Primary Care Provider [phone] Munira Rick RN Unavailable [phone] Encounter Details Date Type Department Care Team (Late st Contact Info) Description 11/28/2018 Orders Only [facility] Transplant Liver [address] [facility] [address] [phone] [place] [address] Maryam Irene, RN [address] [facility] [address] [place] [phone] History of liver transplant (CMS/HCC) Social History Tobacco Use Types Packs/Day Years Used Date Smoking Tobacco: Never Smokeless Tobacco: Never Sex and Gender Information Value Date Recorded Sex Assigned at Not on file 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 180 capsule 3 11/29/2018 9 documented in this encounter Progress Notes * Maryam Irene RN - 11/28/2018 3:43 PM CST Pt's mom requested refill on tacrolimus to [facility] but did not have number to pharm. Per the number she left [facility] states their specialty pharmacy is [facility] [phone]. New rx sent their . Pts mom aware and number added to coordinator note COMPLIANCE MANAGER documented in this encounter Plan of [...] mouth 2 (two) times a day. Reorder 09/28/2018 11/28/2018 documented as of this encounter Care Teams Aircraft Motor Mechanic Relationship Specialty Start Date End Date Kali Cruz MD [address] [place] [address] PCP - General 04/09/17 03/21/19 Munira Rick, RN [address] [facility] [address] [place] [address] Historiographer 04/01/18 documented as of this encounter
--- OUTSIDE RECORDS SUMMARY | 2024-10-28 06:26 | XMS_ITS | Encounter Summary ---
Author Organization [facility] Healthcare Address [address] [place] [address] Care Team Providers Care Mild Disabilities Teacher Name Role Phone Kali Cruz MD Primary Care Provider [phone] Munira Rick RN Unavailable [phone] Reason for Referral * Diagnostic Imaging (Routine) - Closed Specialty Diagnoses / Procedures Referred By Contac t Referred To Contact Radiology Diagnoses High grade B-cell lymphoma (HCC) Procedures PET/CT FDG Skull to Thigh Anita Gillespie MD Phone: tel: fax: [address] [address] Referral ID Status Reason Start Date Expiration Date Visits Re quested Visits Authorized [id number] Closed 12/28/2018 07/08/2020 2 2 PER DIEM Reason for Visit * Diagnostic Imaging (Routine) - Closed Specialty Diagnoses / Procedures Referred By Contac t Referred To Contact Radiology Diagnoses High grade B-cell lymphoma (HCC) Procedures PET/CT FDG Skull to Thigh Anita Gillespie MD Phone: tel: fax: [address] [address] Referral ID Status Reason Start Date Expiration Date Visits Re quested Visits Authorized [id number] Closed 12/28/2018 07/08/2020 2 2 Encounter Details Date Type Department Care Team (Latest Contact Info) Description 01/03/2019 6:53 AM CNA PER DIEM - 01/03/2019 2:10 PM CNA PER DIEM Hospital Encounter [facility] [address] [place] [address] Anita Gillespie MD [address] [facility] [address] [place] [address] High grade B-cell lymphoma (CMS/HCC) Discharge Disposition: Discharge to home or self care Social History Tobacco Use Types Packs/Day Years Used Date Smoking Tobacco: Never Smokeless Tobacco: Never Sex and Gender Information Value Date Recorded Sex Assigned at Not on file Legal Sex Male 6:28 AM CNA PER DIEM Gender Identity Not on file Sexual Orientation Straight 08/22/2021 9: 23 AM CDT documented as of this encounter Last Filed Vital Signs Vital Sign Reading Time Taken Comments Blood Pressure - - Pulse - - Temperature - - Respiratory Rate - - Oxygen Saturation - - Inhaled Oxygen Concentration - - Weight 59 kg (130 lb) 01/03/2019 7:33 AM CNA PER DIEM Height 172.7 cm (5' 8 ) 01/03/2019 7:33 AM CNA PER DIEM Body Mass Index 19.77 01/03/2019 7:33 AM CNA PER DIEM documented in this encounter Medications at Time of Discharge levoFLOXacin (LEVAQUIN) 750 mg tabletIndication s:Pneumonia, Community Acquired Take 1 tablet (750 mg total) by mouth peoplesoft hrms developer before breakfast for 3 doses 3 tablet 01/07/2019 9 oxyCODONE (ROXICODONE) 5 mg immediate release tabletIndication s:Pain Take 1 tablet (5 mg total) by mouth every 6 (six) hours as needed for pain 8 tablet 01/06/2019 9 oxyCODONE (ROXICODONE) 5 mg immediate release tabletIndication s:Pain Take 1 tablet (5 mg total) by mouth every 6 (six) hours as needed for pain 15 tablet 01/06/2019 9 senna-docusate (PERICOLACE) 8.6-50 mgIndications:co nstipation,Take it as long as you are taking oxycodone Take 2 tablets by mouth daily 10 tablet 01/06/2019 9 senna-docusate (PERICOLACE) 8.6-50 mgIndications:co nstipation,Take it as long as you are taking oxycodone Take 2 tablets by mouth daily 10 tablet 01/06/2019 9 tacrolimus (PROGRAF) 0.5 mg capsuleIndicatio ns:History of liver transplant (CMS/HCC) (HCC) Take 1 capsule (0.5 mg total) by mouth 2 (two) times a day. 180 capsule 3 11/29/2018 9 valGANciclovir (VALCYTE) 450 mg tabletIndication s:CMV VIremia Take 1 tablet (450 mg total) by mouth 2 (two) times a day. 60 tablet 1 12/06/2018 9 documented as of this encounter Discharge Disposition [...] THIGH Schedule Routine, Read Routine (OP Routine) 01/03/2019 8:48 AM CNA PER DIEM High grade B-cell lymphoma (CMS/HCC) documented in this encounter Results * PET/CT FDG Skull to Thigh (01/03/2019 8:48 AM CNA PER DIEM) Anatomical Region Laterality Modality N/A Positron Emissio n Tomography (PET) 01/03/2019 10:1 9 AM CNA PER DIEM Addenda Addendum by Usha Dias MD on 01/03/2019 12:12 PM CNA PER DIEM The Non Critical results were discussed with Dr. Yassine Santos's practitioner, Samreen Vee, by Dr. Yassine Barney M.D. on 01/03/2019 at 11:50 AM. Dictated by: Yassine Barney M.D. Electronically signed by: Michael CaleroD. Impressions 01/03/2019 10:51 AM CNA PER DIEM 1. ??Multiple new hypermetabolic and slightly enlarging lymph nodes above and below the diaphragm (bilateral cervical, axillary, mediastinal, mesenteric, retroperitoneal, and left inguinal), consistent with progression of disease. 5PS = 5. 2. ??New right lower lobe and left upper lobe lung consolidations. Given that this is new since 12/28/2018, findings most likely represent pneumonia rather than pulmonary PTLD, however clinical correlation is recommended and attention on short interval chest CT follow-up imaging. 3. ??Findings of pansinusitis, similar to December neck CT. 4. ??Diffusely increased activity throughout bone medullary cavities the axial and proximal appendicular skeleton, which may represent marrow involvement versus marrow hyperplasia. Recommend correlation with marrow biopsy. Dictated by: Yassine Barney M.D. Electronically signed by: Usha Dias M.D. Narrative 01/03/2019 10:51 AM CNA PER DIEM EXAMINATION: TUMOR FDG-PET/CT IMAGING DATE OF STUDY: ??01/03/2019 SCANNER: mCT RADIOPHARMACEUTICAL: 13.3 mCi F-18 Fluorodeoxyglucose (FDG) i.v. 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 Recently with slowly progressive cervical lymphadenopathy. The study is requested for follow-up. Subsequent treatment strategy. TECHNIQUE: The patient's fasting blood glucose level, measured by glucometer before injection of FDG, was 101 mg/dL. ??MD-Gastroview was given orally. ??After intravenous administration of FDG, noncontrast CT images were obtained for attenuation correction and for fusion with emission PET images to allow for anatomical localization of PET findings. ??Emission PET images were then obtained. ??The study was interpreted on the [employer] workstation. ??The mean liver SUV (reported for engagement quality consultant purposes) is 1.7. ?? The total scanned area was skull base to the proximal thighs. ??Images of the body were obtained starting 59 minutes after injection of tracer. COMPARISON: Prior FDG-PET/CT dated 01/05/2018. FINDINGS: New hypermetabolic activity associated with diffuse extensive mucosal thickening in right frontal, bilateral ethmoid and maxillary sinuses. Interval increase in number of hypermetabolic lymph nodes in bilateral cervical (right level IB, SUV 15.3; left level II, up to 14.8 SUV; bilateral level IV, 9.8 SUV; right level V, SUV 6.4), bilateral axillary, mediastinal (prevascular, upper and lower paratracheal, hilar, interlobar, paraesophageal), mesenteric, retroperitoneal, and left inguinal /external iliac distribution. Several of the nodes are also larger in size on the CT images. There is also increased activity associated with bilateral adenoid and lingual tonsils, which may be reactive. There is intense hypermetabolic activity associated with new pulmonary consolidations located in the anterior segment left upper lobe, lateral basal segment right lower lobe with some associated peribronchovascular groundglass opacities in the left anterior cardiophrenic recess. There is mild uptake in patchy consolidation in the superior segment of the left lower lobe. There is moderate diffusely increased activity throughout the proximal appendicular and axial skeleton. The most FDG-avid lesion is right cervical level IB (submandibular), has a maximum SUV of 15.3, and approximate axial dimensions of 18 mm. The uptake in this lesion is: markedly greater than liver (5PS= 5). Additional CT findings: Interval removal of a right internal jugular central venous port catheter. Changes of right upper neck dissection. Partially calcified right hilar lymph node. New small left pleural effusion. Changes of liver transplant with diaphragmatic reconstruction. Changes of splenectomy. Transitional lumbosacral anatomy, with sacralization of L5 and degenerative changes at this level. Procedure Note Usha Dias MD - 01/03/2019 EXAMINATION: TUMOR FDG-PET/CT IMAGING DATE OF STUDY: 01/03/2019 SCANNER: mCT RADIOPHARMACEUTICAL: 13.3 mCi F-18 Fluorodeoxyglucose (FDG) i.v. 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 Recently with slowly progressive cervical lymphadenopathy. The study is requested for follow-up. Subsequent treatment strategy. TECHNIQUE: The patient's fasting blood glucose level, measured by glucometer before injection of FDG, was 101 mg/dL. -Gastroview was given orally. After intravenous administration of FDG, noncontrast CT images were obtained for attenuation correction and for fusion with emission PET images to allow for anatomical localization of PET findings. Emission PET images were then obtained. The study was interpreted on the [employer] workstation. The mean liver SUV (reported for engagement quality consultant purposes) is 1.7. The total scanned area was skull base to the proximal thighs. Images of the body were obtained starting 59 minutes after injection of tracer. COMPARISON: Prior FDG-PET/CT dated 01/05/2018. FINDINGS: New hypermetabolic activity associated with diffuse extensive mucosal thickening in right frontal, bilateral ethmoid and maxillary sinuses. Interval increase in number of hypermetabolic lymph nodes in bilateral cervical (right level IB, SUV 15.3; left level II, up to 14.8 SUV; bilateral level IV, 9.8 SUV; right level V, SUV 6.4), bilateral axillary, mediastinal (prevascular, upper and lower paratracheal, hilar, interlobar, paraesophageal), mesenteric, retroperitoneal, and left inguinal /external iliac distribution. Several of the nodes are also larger in size on the CT images. There is also increased activity associated with bilateral adenoid and lingual tonsils, which may be reactive. There is intense hypermetabolic activity associated with new pulmonary consolidations located in the anterior segment left upper lobe, lateral basal segment right lower lobe with some associated peribronchovascular groundglass opacities in the left anterior cardiophrenic recess. There is mild uptake in patchy consolidation in the superior segment of the left lower lobe. There is moderate diffusely increased activity throughout the proximal appendicular and axial skeleton. The most FDG-avid lesion is right cervical level IB (submandibular), has a maximum SUV of 15.3, and approximate axial dimensions of 18 mm. The uptake in this lesion is: markedly greater than liver (5PS= 5). Additional CT findings: Interval removal of a right internal jugular central venous port catheter. Changes of right upper neck dissection. Partially calcified right hilar lymph node. New small left pleural effusion. Changes of liver transplant with diaphragmatic reconstruction. Changes of splenectomy. Transitional lumbosacral anatomy, with sacralization of L5 and degenerative changes at this level. IMPRESSION: 1. Multiple new hypermetabolic and slightly enlarging lymph nodes above and below the diaphragm (bilateral cervical, axillary, mediastinal, mesenteric, retroperitoneal, and left inguinal), consistent with progression of disease. 5PS = 5. 2. New right lower lobe and left upper lobe lung consolidations. Given that this is new since 12/28/2018, findings most likely represent pneumonia rather than pulmonary PTLD, however clinical correlation is recommended and attention on short interval chest CT follow-up imaging. 3. Findings of pansinusitis, similar to February neck CT. 4. Diffusely increased activity throughout bone medullary cavities the axial and proximal appendicular skeleton, which may represent marrow involvement versus marrow hyperplasia. Recommend correlation with marrow biopsy. Dictated by: Yassine Barney M.D. Electronically signed by: Usha Dias M.D. Anita Gillespie MD IMG PET PROCEDURES Edited Result - Final documented in this encounter Visit Diagnoses Diagnosis High grade B-cell lymphoma (HCC) documented in this encounter Administered Medications Inactive Administered Medications - up to 3 most recent administrations Medication Order MAR Action Action Date Dose Rate Site diatrizoate meglumine-diatrizoate sodium (GASTROGRAFIN/-GASTROVIE W) 66-10 % solution 7 mL 7 mL, oral, Once in imaging, contrast, Starting on Wed01/03/19 at 0733, For 1 dose, Indications: Digestive System RadiographyIndications:Dig estive System Radiography Given 01/03/2019 8:29 AM CNA PER DIEM 3 mL f-18 fdg injection 12.5 millicurie 12.5 millicurie, intravenous, Once in imaging, radiopharmaceutical, Starting on Wed01/03/19 at 0720, For 1 dose Given 01/03/2019 7:29 AM CNA PER DIEM 13.26 millicuries documented in this encounter Care Teams Mild Disabilities Teacher Relationship Specialty Start Date End Date Kali Cruz MD [address] [place] [address] PCP - General 04/09/17 03/21/19 Munira Rick, RN [address] [facility] [address] [place] [address] Mopper 04/01/18 documented as of this encounter
--- OUTSIDE RECORDS SUMMARY | 2024-10-28 06:26 | XMS_ITS | Encounter Summary ---
Author Organization [facility] Address [address] [place] [address] Phone Care Team Providers Care Prn Physical Therapist Name Role Phone Kali Cruz MD Primary Care Provider [phone] Munira Rick RN Unavailable Encounter Details Date Type Department Care Team (Late st Contact Info) Description 01/20/[address] [facility] Oncology [address] [facility] 7[address] [place] [address] [place] [address] Samreen Greene RN Social History Tobacco Use Types Packs/Day Years Used Date Smoking Tobacco: Never Smokeless Tobacco: Never Sex and Gender Information Value Date Recorded Sex Assigned at Not on file Legal Sex Male 6:28 AM [employer] Gender Identity Not on file Sexual Orientation Straight 08/22/2021 9: 23 AM CDT documented as of this encounter Miscellaneous Notes * Telephone Encounter - Samreen Greene RN - 01/20/2019 3:[address] Gillespie discussed Beka's pathology with his mom, Brooklynn. We will observe him at this juncture.We would like him to return in 2 months. He and his mom know to call if they have any concerns or questions. documented in this encounter Plan of Treatment Scheduled Procedures Name Priority Associated Diagnoses Date/Ti me COLONOSCOPY Encounter for screening for colorectal cancer in high risk patient Family history of rectal cancer documented as of this encounter Results * (ABNORMAL) CBC with auto differential (03/22/2019 7:45 AM CDT) WBC 9.6 3.8 - 9.8 K/cumm [facility] Comment:Testing performed by : [facility], [address] [place] [phone] Hgb 16.2 13.8 - 17.2 g/dL [facility] Comment:Testing performed by : [address] [address] Hct 47.0 40.7 - 50.3 % [facility] Comment:Testing performed by : [address] [address] Plt 585(H) 140 - 440 K/cumm [facility] Comment:Testing performed by : [address] [phone] MPV 7.1 6.8 - 10.4 fL [facility] Comment:Testing performed by : [address] [phone] RBC 4.80 4.50 - 5.70 M/cumm [facility] Comment:Testing performed by : [address] [address] MCV 98.0(H) 80.0 - 97.6 fL [facility] Comment:Testing performed by : [address] [phone] MCH 33.7 26.7 - 33.7 pg [facility] Comment:Testing performed by : [address] [address] MCHC 34.4 32.7 - 35.5 g/dL [facility] Comment:Testing performed by : [address] [phone] RDW CV 14.3 11.8 - 14.6 % [facility] Comment:Testing performed by : [facility], [facility] [phone] NRBC abs 0.00 0.00 - 0.01 K/cumm [facility] Comment:Testing performed by : [facility], [address] [place] [phone] Blood specimen (specimen) 03/22/2019 7:45 AM CDT 03/22/2019 7:47 AM CDT Narrative [facility] - 03/22/2019 7:53 AM CDT Anita Gillespie MD LAB BLOOD ORDERABLES Final Result Performing Organization Address City/[facility]/ZIP Co de Phone Number [facility] [place] [address] * Lactate dehydrogenase (LD) (03/22/2019 7:45 AM CDT) Pathologist [facility] Lactate dehydrogenase (LDH) 174 100 - 250 Units/L [facility] Blood specimen (specimen) 03/22/2019 7:45 AM CDT 03/22/2019 8:52 AM CDT Narrative [facility] - 03/22/2019 9:26 AM CDT us Anita Gillespie MD LAB BLOOD ORDERABLES Final Result Performing Organization Address City/[facility]/ZIP Co de Phone Number [facility] [place] [address] * (ABNORMAL) Comprehensive metabolic panel (03/22/2019 7:45 AM CDT) Sodium 140 135 - 145 mmol/L [facility] Potassium, pl 4.4 3.3 - 4.9 mmol/L [facility] Chloride 105 97 - 110 mmol/L [facility] CO2 28 22 - 32 mmol/L [facility] Anion gap 7 2 - 15 mmol/L [facility] BUN 17 8 - 25 mg/dL [facility] Creatinine 0.91 0.80 - 1.30 mg/dL [facility] Glucose 85 70 - 199 mg/dL [facility] Comment: Interpretive Data Fasting glucose >/= [...] 2017. Calcium 9.7 8.5 - 10.3 mg/dL [facility] Bilirubin, total 0.3 0.1 - 1.2 mg/dL [facility] Protein, pl 6.5 6.5 - 8.5 g/dL [facility] Albumin 4.3 3.5 - 5.0 g/dL [facility] Alk phos 197(H) 40 - 130 Units/L [facility] ALT 37 7 - 55 Units/L [facility] AST 27 10 - 50 Units/L [facility] Blood specimen (specimen) 03/22/2019 7:45 AM CDT 03/22/2019 8:52 AM CDT Narrative [facility] - 03/22/2019 9:26 AM CDT us Anita Gillespie MD LAB BLOOD ORDERABLES Final Result [facility] [place] [address] documented in this encounter Visit Diagnoses Diagnosis 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
--- OUTSIDE RECORDS SUMMARY | 2024-10-28 06:26 | XMS_ITS | Encounter Summary ---
Author Organization [facility] [place] Address [address] [place] [address] Phone Care Team Providers Care Haz Tech Name Role Phone Kali Cruz MD Primary Care Provider [phone] Munira Rick RN Unavailable [phone] Encounter Details Date Type Department Care Team (Late st Contact Info) Description 10/06/2018 Orders Only [facility] Gastroenterology [address] [facility] Advanced Medicine 8th [place] [address] [place] [address] Theodore Gresham MD [address] [facility] [address] [place], [place] [id number] Social History Tobacco Use Types Packs/Day Years Used Date Smoking Tobacco: Never Smokeless Tobacco: Never Sex and Gender Information Value Date Recorded Sex Assigned at Not on file Legal Sex Male 6:28 AM ROTOGRAVURE PRESS OPERATOR Gender Identity Not on file [...] Associated Diagnosis Comments COPY(IES) SENT TO: Routine 10/06/2018 3: 41 PM ROTOGRAVURE PRESS OPERATOR CMV DNA QN, PCR Routine 10/06/2018 3:41 PM ROTOGRAVURE PRESS OPERATOR TACROLIMUS LEVEL, TROUGH Routine 10/06/2018 3:41 PM ROTOGRAVURE PRESS OPERATOR CBC WITH AUTO DIFFERENTIAL Routine 10/06/2018 3:41 PM ROTOGRAVURE PRESS OPERATOR GAMMA GT Routine 10/06/2018 3:41 PM ROTOGRAVURE PRESS OPERATOR COMPREHENSIVE METABOLIC PANEL Routine 10/06/2018 3:41 PM ROTOGRAVURE PRESS OPERATOR documented in this encounter Results * CMV DNA QN, PCR (10/06/2018 3:41 PM ROTOGRAVURE PRESS OPERATOR) SOURCE BLOOD [facility] CMV DNA qn <200 IU/mL [facility] CMV DNA log IU/mL <2.30 Log IU/mL [facility] Comment: REFERENCE RANGE: CMV DNA, QN PCR: <200 IU/mL CMV DNA, QN PCR: <2.30 Log IU/mL This test was developed and its analytical performance characteristics have been determined by [facility]. It has not been cleared or approved by the U.S. Food and Drug Administration. This assay has been validated pursuant to the CLIA regulations and is used for clinical purposes. 10/06/2018 3:41 PM ROTOGRAVURE PRESS OPERATOR 10/06/2018 3:41 PM ROTOGRAVURE PRESS OPERATOR Narrative [facility] - 10/08/2018 9:38 PM ROTOGRAVURE PRESS OPERATOR FASTING:NO FASTING: NO Resulting Agency Comment Performing Organization Information: ?Site ID: [id number] ?Name: [facility] ?Address: [address] [place] [id number] ?Director: Richie Rodriguez MD Theodore Gresham MD LAB MICROBIOLOGY - GENERAL ORDERABLES Final Result [facility] - [place], [place] * (ABNORMAL) Tacrolimus level trough (10/06/2018 3:41 PM ROTOGRAVURE PRESS OPERATOR) Pathologist [facility] Tacrolimus, highly Sensitive, LC/MS/MS 2.6(LL) mcg/L [facility] [place] Comment: No definitive therapeutic or toxic ranges have been established. Optimal blood drug levels are influenced by type of transplant, patient response, time post- transplant, co-administration of other drugs, and drug formulation. The following trough range is a suggested guideline: 5.0-20.0 mcg/L. This test was developed and its analytical performance characteristics have been determined by [facility]. It has not been cleared or approved by the FDA. This assay has been validated pursuant to the CLIA regulations and is used for clinical purposes. 10/06/2018 3:41 PM ROTOGRAVURE PRESS OPERATOR 10/06/2018 3:41 PM ROTOGRAVURE PRESS OPERATOR Narrative [facility] - 10/08/2018 9:38 PM ROTOGRAVURE PRESS OPERATOR FASTING:NO FASTING: NO Resulting Agency Comment Performing Organization Information: ?Site ID: MS ?Name: [facility] ?Address: [address] [place] [address] [place] [address] ?Director: Jason Buckner D.O., MPH Theodore Gresham MD LAB BLOOD ORDERABLES Final Result [facility] [place] * (ABNORMAL) CBC with auto differential (10/06/2018 3:41 PM ROTOGRAVURE PRESS OPERATOR) [facility] WBC 14.5(H) 3.8 - 10.8 Thousand/ uL [facility] [place] RBC, POC 4.35 4.20 - 5.80 Million/u L [facility] [place] Hgb 14.5 13.2 - 17.1 g/dL [facility] [place] Hct 41.4 38.5 - 50.0 % [facility] [place] MCV 95.2 80.0 - 100.0 fL [facility] [place] MCH 33.3(H) 27.0 - 33.0 pg [facility] [place] MCHC 35.0 32.0 - 36.0 g/dL [facility] [place] Rdw 15.0 11.0 - 15.0 % [facility] [place] Platelets 484(H) 140 - 400 Thousand/ uL [facility] [place] MPV 10.0 7.5 - 12.5 fL [facility] [place] Neutrophils, abs 8,309(H) 1,500 - 7,800 cells/uL [facility] [place] Lymphocytes, abs 4,220(H) 850 - 3,900 cells/uL [facility] [place] Monocyte abs 1,639(H) 200 - 950 cells/uL [facility] [place] Eosinophils, abs 290 15 - 500 cells/uL [facility] [place] Basophils, abs 44 0 - 200 cells/uL [facility] [place] Neutrophils 57.3 % [facility] [place] Lymphocyte pct 29.1 % [facility] [place] Monocytes 11.3 % [facility] [place] Eosinophils 2.0 % [facility] [place] Basophils 0.3 % [facility] [place] 10/06/2018 3:41 PM ROTOGRAVURE PRESS OPERATOR 10/06/2018 3:41 PM ROTOGRAVURE PRESS OPERATOR Narrative [facility] - 10/08/2018 9:38 PM ROTOGRAVURE PRESS OPERATOR FASTING:NO FASTING: NO Resulting Agency Comment Performing Organization Information: ?Site ID: MS ?Name: [facility] ?Address: [address] [place] [address] [place] [address] ?Director: Jason Buckner D.O., MPH Theodore Gresham MD LAB BLOOD ORDERABLES Final Result [facility] [place] * (ABNORMAL) Comprehensive metabolic panel (10/06/2018 3:41 PM ROTOGRAVURE PRESS OPERATOR) Glucose 86 65 - 139 mg/dL [facility] [place] Comment: ? Non-fasting reference interval BUN 20 7 - 25 mg/dL [facility] [place] Creatinine 1.05 0.60 - 1.35 mg/dL [facility] [place] eGFR NON-AFR. BULGARIAN 98 > OR = 60 mL/min/1. 73m2 [facility] [place] EGFR 114 > OR = 60 mL/min/1. 73m2 [facility] [place] BUN/creat ratio NOT APPLICABLE 6 - 22 (calc) [facility] [place] Sodium 142 135 - 146 mmol/L [facility] [place] Potassium, pl 4.0 3.5 - 5.3 mmol/L [facility] [place] Chloride 106 98 - 110 mmol/L [facility] [place] CO2 26 20 - 32 mmol/L [facility] [place] Calcium 9.3 8.6 - 10.3 mg/dL [facility] [place] Protein, sr 5.5(L) 6.1 - 8.1 g/dL [facility] [place] Albumin 4.4 3.6 - 5.1 g/dL [facility] [place] GLOBULIN 1.1(L) 1.9 - 3.7 g/dL (calc) [facility] [place] Alb/glob ratio 4.0(H) 1.0 - 2.5 (calc) [facility] [place] Bilirubin, total 0.5 0.2 - 1.2 mg/dL [facility] [place] Alk phos 309(H) 40 - 115 U/L [facility] [place] AST 39 10 - 40 U/L [facility] [place] ALT (SGPT) 62(H) 9 - 46 U/L [facility] [place] 10/06/2018 3:41 PM ROTOGRAVURE PRESS OPERATOR 10/06/2018 3:41 PM ROTOGRAVURE PRESS OPERATOR Narrative [facility] - 10/08/2018 9:38 PM ROTOGRAVURE PRESS OPERATOR FASTING:NO FASTING: NO Resulting Agency Comment Performing Organization Information: ?Site ID: [place] ?Name: [facility] ?Address: [facility] [place] [address] [place] [place] [address] ?Director: Jason Buckner D.O. MPH Theodore Gresham MD LAB BLOOD ORDERABLES Final Result [facility] - [place] * (ABNORMAL) Gamma GT (10/06/2018 3:41 PM ROTOGRAVURE PRESS OPERATOR) GGT 241(H) 3 - 70 U/L [facility] [place] 10/06/2018 3:41 PM ROTOGRAVURE PRESS OPERATOR 10/06/2018 3:41 PM ROTOGRAVURE PRESS OPERATOR Narrative [facility] - 10/08/2018 9:38 PM ROTOGRAVURE PRESS OPERATOR FASTING:NO FASTING: NO Resulting Agency Comment Performing Organization Information: ?Site ID: [place] ?Name: [facility] ?Address: [address] [address] ?Director: Jason Buckner D.O., MPH us Theodore Gresham MD LAB BLOOD ORDERABLES Final Result [facility] [place] * COPY(IES) SENT TO: (10/06/2018 3:41 PM ROTOGRAVURE PRESS OPERATOR) COPY(IES) SENT TO: [facility] Comment: ?[facility] - COPY TO [facility] ?[address] ?[place] [address] 10/06/2018 3:41 PM ROTOGRAVURE PRESS OPERATOR 10/06/2018 3:41 PM ROTOGRAVURE PRESS OPERATOR Narrative [facility] - 10/08/2018 9:38 PM ROTOGRAVURE PRESS OPERATOR FASTING:NO FASTING: NO Theodore Gresham MD LAB BLOOD ORDERABLES Final Result [facility] documented in this encounter Visit Diagnoses Not on filedocumented in this encounter Care Teams Haz Tech Relationship Specialty Start Date End Date Kali Cruz MD [address] INTERNAL MEDICINE [place], [place] [id number] PCP - General 04/09/17 03/21/19 Munira Rick, RN [address] [facility] [address] [place] [address] Manager Mac 04/01/18 documented as of this encounter
--- OUTSIDE RECORDS SUMMARY | 2024-10-28 06:26 | XMS_ITS | Encounter Summary ---
Author Organization [facility] Address [address] [place] [address] Care Team Providers Care Plastic Battery Assembler Name Role Phone Kali Cruz MD Primary Care Provider [phone] Munira Rick RN Unavailable [phone] Encounter Details Date Type Department Care Team (Late st Contact Info) Description 10/07/2018 Telephone [facility] Trans[facility] Liver [address] [facility] [phone] [place], [place] [phone] Munira Rick, RN [address] [facility] [address] [place], [place] [phone] Social History Tobacco Use Types Packs/Day Years Used Date Smoking Tobacco: Never Smokeless Tobacco: Never Sex and Gender Information Value Date Recorded Sex Assigned at Not on file Legal Sex Male 6:28 AM VENEER STACKER Gender Identity Not on file Sexual Orientation Straight 08/22/2021 9: 23 AM CDT documented as of this encounter Miscellaneous Notes * Telephone Encounter - Munira Rick RN - 10/07/2018 3:42 PM CST Call placed to pt, spoke with mom. She is aware pt should remain sober and have labs repeated on 10/13 to determine if biopsy necessary since Dr. Gresham is now aware pt has been drinking heavily per mom. ER STACKER * Telephone Encounter - Munira Rick RN - 10/07/2018 3:37 PM CST ----- Message from Theodore Gresham MD sent at 10/07/2018 3:32 PM VENEER STACKER ----- Noted. That was not expressed to me even though she was at the last clinic visit. Since we are delaying to the , then I would have him get labs on 10/13/18 & ask him to remain sober. If the labs are continuing to improve we can scrub the biopsy ----- Message ----- From: Munira Rick RN Sent: 10/07/2018 1:56 PM To: MD Dr. Mp [place], He is scheduled for his liver US and possible biopsy on 10/18 at the [facility] arrival time of [address] Shawn Meneses. When I scheduled with Melissa I told her your instructions of US first then discuss if biopsy necessary. Please note, I spoke with pt's mom and she is asking me if heavy ETOH can cause an elevation in numbers. She said he has been drinking heavy on the the weekends. Thank you Munira ----- Message ----- From: Theodore Gresham MD Sent: 10/07/2018 1:21 PM To: Munira Rick RN Keep with plan for liver ultrasound and biopsy The labs have been persistently abnormal for some time for unclear reasons Do you know the date of the us and biopsy? ----- Message ----- From: Munira Rick RN Sent: 10/07/2018 9:10 AM To: MD Dr. Mp [place], please review LFT's with noted improvement. Pt is scheduled for US and depending on findings may undergo biopsy at same time. Please advise if plan should remain. Thank you. ER STACKER documented in this encounter Plan of Treatment Scheduled Procedures Name Priority Associated Diagnoses Date/Ti me COLONOSCOPY Encounter for screening for colorectal cancer in high risk patient Family history of rectal cancer documented as of this encounter Procedures Procedure Name Priority Date/Time Associated Diagnosis Comments COPY(IES) SENT TO: Routine 10/13/2018 3: 52 PM VENEER STACKER TACROLIMUS LEVEL, TROUGH Routine 10/13/2018 3:52 PM VENEER STACKER Liver replaced by transplant (CMS/HCC) CBC WITH AUTO DIFFERENTIAL Routine 10/13/2018 3:52 PM VENEER STACKER Liver replaced by transplant (CMS/HCC) PROTIME-INR Routine 10/13/2018 3:52 PM VENEER STACKER Liver replaced by transplant (CMS/HCC) GAMMA GT Routine 10/13/2018 3:52 PM VENEER STACKER Liver replaced by transplant (CMS/HCC) COMPREHENSIVE METABOLIC PANEL Routine 10/13/2018 3:52 PM VENEER STACKER Liver replaced by transplant (CMS/HCC) documented in this encounter Results * COPY(IES) SENT TO: (10/13/2018 3:52 PM VENEER STACKER) COPY(IES) SENT TO: [facility] Comment: ?[facility] - [facility] ?[address] ?[place] [address] 10/13/2018 3:52 PM VENEER STACKER 10/13/2018 3:52 PM VENEER STACKER Narrative [facility] - 10/14/2018 3:24 PM VENEER STACKER FASTING:NO FASTING: NO us Theodore Gresham MD LAB BLOOD ORDERABLES Final Result [facility] * (ABNORMAL) Tacrolimus level trough (10/13/2018 3:52 PM VENEER STACKER) Tacrolimus, highly Sensitive, LC/MS/MS 3.0(L) mcg/L [facility] [place] Comment: No definitive therapeutic or toxic ranges have been established. Optimal blood drug levels are influenced by type of transplant, patient response, time post- transplant, co-administration of other drugs, and drug formulation. The following trough range is a suggested guideline: 5.0-20.0 mcg/L. This test was developed and its analytical performance characteristics have been determined by [employer]. It has not been cleared or approved by the FDA. This assay has been validated pursuant to the CLIA regulations and is used for clinical purposes. Blood specimen (specimen) 10/13/2018 3:52 PM VENEER STACKER 10/13/2018 3:52 PM VENEER STACKER Narrative [facility] - 10/14/2018 3:24 PM VENEER STACKER FASTING:NO FASTING: NO Resulting Agency Comment Performing Organization Information: ?Site ID: [place] ?Name: [facility] ?Address: [address] [place] [address] ?Director: Jason Buckner D.O. MPH Theodore Gresham MD LAB BLOOD ORDERABLES Final Result Performing Organization Address [facility] de Phone Number [facility] [place] * (ABNORMAL) Gamma GT (10/13/2018 3:52 PM VENEER STACKER) GGT 238(H) 3 - 70 U/L [facility] [place] Blood specimen (specimen) 10/13/2018 3:52 PM VENEER STACKER 10/13/2018 3:52 PM VENEER STACKER Narrative [facility] - 10/14/2018 3:24 PM VENEER STACKER FASTING:NO FASTING: NO Resulting Agency Comment Performing Organization Information: ?Site ID: [place] ?Name: [facility] [facility] ?Address: [address] [place] [address] ?Director: Jason Buckner D.O. MPH Theodore Gresham MD LAB BLOOD ORDERABLES Final Result Performing Organization Address [facility] Co de Phone Number [facility] [place] * (ABNORMAL) CBC with auto differential (10/13/2018 3:52 PM VENEER STACKER) WBC 5.7 3.8 - 10.8 Thousand/u L [facility] [place] RBC, POC 4.29 4.20 - 5.80 Million/uL [facility] [place] Hgb 14.3 13.2 - 17.1 g/dL [facility] [place] Hct 40.4 38.5 - 50.0 % [facility] [place] MCV 94.2 80.0 - 100.0 fL [facility] [place] MCH 33.3(H) 27.0 - 33.0 pg [facility] [place] MCHC 35.4 32.0 - 36.0 g/dL [facility] [place] Rdw 14.9 11.0 - 15.0 % [facility] [place] Platelets 421(H) 140 - 400 Thousand/u L [facility] [place] MPV 9.8 7.5 - 12.5 fL [facility] [place] Neutrophils, abs 946(L) 1,500 - 7,800 cells/uL [facility] [place] Lymphocytes, abs 3,825 850 - 3,900 cells/uL [facility] [place] Monocyte abs 770 200 - 950 cells/uL [facility] [place] Eosinophils, abs 131 15 - 500 cells/uL [facility] [place] Basophils, abs 29 0 - 200 cells/uL [facility] [place] Neutrophils 16.6 % [facility] [place] Lymphocyte pct 67.1 % [facility] [place] Monocytes 13.5 % [facility] [place] Eosinophils 2.3 % [facility] [place] Basophils 0.5 % [facility] [place] Blood specimen (specimen) 10/13/2018 3:52 PM VENEER STACKER 10/13/2018 3:52 PM VENEER STACKER Narrative [facility] - 10/14/2018 3:24 PM VENEER STACKER FASTING:NO FASTING: NO Resulting Agency Comment Performing Organization Information: ?Site ID: [place] ?Name: [facility] ?Address: [address] [place] [address] ?Director: Jason Buckner D.O., MPH us Theodore Gresham MD LAB BLOOD ORDERABLES Final Result [facility] - [place] * (ABNORMAL) Comprehensive metabolic panel (10/13/2018 3:52 PM VENEER STACKER) Glucose 79 65 - 139 mg/dL [facility] [place] Comment: ? Non-fasting reference interval BUN 12 7 - 25 mg/dL [facility] [place] Creatinine 0.85 0.60 - 1.35 mg/dL [facility] [place] eGFR NON-AFR. MOZAMBICAN 121 > OR = 60 mL/min/1. 73m2 [facility] [place] EGFR 140 > OR = 60 mL/min/1. 73m2 [facility] [place] BUN/creat ratio NOT APPLICABLE 6 - 22 (calc) [facility] [place] Sodium 143 135 - 146 mmol/L [facility] [place] Potassium, pl 4.1 3.5 - 5.3 mmol/L [facility] [place] Chloride 106 98 - 110 mmol/L [facility] [place] CO2 29 20 - 32 mmol/L [facility] [place] Calcium 9.6 8.6 - 10.3 mg/dL [facility] [place] Protein, sr 5.7(L) 6.1 - 8.1 g/dL [facility] [place] Albumin 4.3 3.6 - 5.1 g/dL [facility] [place] GLOBULIN 1.4(L) 1.9 - 3.7 g/dL (calc) [facility] [place] Alb/glob ratio 3.1(H) 1.0 - 2.5 (calc) [facility] [place] Bilirubin, total 0.6 0.2 - 1.2 mg/dL [facility] [place] Alk phos 372(H) 40 - 115 U/L [facility] [place] AST 38 10 - 40 U/L [facility] [place] ALT (SGPT) 73(H) 9 - 46 U/L [facility] [place] Blood specimen (specimen) 10/13/2018 3:52 PM VENEER STACKER 10/13/2018 3:52 PM VENEER STACKER Narrative [facility] - 10/14/2018 3:24 PM VENEER STACKER FASTING:NO FASTING: NO Resulting Agency Comment Performing Organization Information: ?Site ID: [place] ?Name: [facility] ?Address: [facility] [place][note 2] [place] [address] ?Director: Jason Buckner D.O., MPH us Theodore Gresham MD LAB BLOOD ORDERABLES Final Result [facility] [place] * Protime-INR (10/13/2018 3:52 PM VENEER STACKER) INR 1.0 [facility] [place] Comment: Reference Range ? 0.9-1.1 Moderate-intensity Warfarin Therapy 2.0-3.0 Higher-intensity Warfarin Therapy ?? 3.0-4.0 PT 10.1 9.0 - 11.5 sec [facility] [place] Comment: For more information on this test, go to: http://education.[employer].me/faq/NTZ655 Blood specimen (specimen) 10/13/2018 3:52 PM VENEER STACKER 10/13/2018 3:52 PM VENEER STACKER Narrative [facility] - 10/14/2018 3:24 PM VENEER STACKER FASTING:NO FASTING: NO Resulting Agency Comment Performing Organization Information: ?Site ID: K[place]YA ?Name: [facility] ?Address: [address] [place] [address] [place] [address] ?Director: Jason Buckner D.O., MPH Theodore Gresham MD LAB BLOOD ORDERABLES Final Result Performing Organization Address City/[facility]/ZIP Co de Phone Number [facility] [place] documented in this encounter Visit Diagnoses Diagnosis Liver replaced by transplant (HCC)- Primary Liver replaced by transplant documented in this encounter Care Teams Plastic Battery Assembler Relationship Specialty Start Date End Date Kali Cruz MD [address] [place] [address] PCP - General 04/09/17 03/21/19 Munira Rick, RN [address] [facility] [address] [place] [address] Clinical Nursing Professor 04/01/18 documented as of this encounter
--- OUTSIDE RECORDS SUMMARY | 2024-10-28 06:26 | XMS_ITS | Encounter Summary ---
Author Organization [facility] Address [address] [place] [address] Care Team Providers Care Cad Cam Programmer Name Role Phone Kali Cruz MD Primary Care Provider [phone] Munira Rick RN Unavailable [phone] Encounter Details Date Type Department Care Team (Latest Contact Info) Description 01/07/2019 Telephone Otolaryngology Hermelinda Michele MD [address] [facility] [address] [place] [address] Social History Tobacco Use Types Packs/Day Years Used Date Smoking Tobacco: Never Smokeless Tobacco: Never Sex and Gender Information Value Date Recorded Sex Assigned at Not on file Legal Sex Male 6:28 AM MOTOR VEHICLE ASSEMBLY SUPERVISOR Gender Identity Not on file Sexual Orientation Straight 08/22/2021 9: 23 AM CDT documented as of this encounter Miscellaneous Notes * Telephone Encounter - Hermelinda Michele MD - 01/07/2019 3:50 PM MOTOR VEHICLE ASSEMBLY SUPERVISOR Patient mother called complaining of decreased PO intake due to discomfort from drain in neck. Alsohas some swelling in his neck. Denies fevers or chills. Swelling is not red or tender. Breathing well. Normal urine output and color of urine per mother. Continue TATI drain and measuring output until removed in clinic. May have ice to neck for comfort. Watch for fevers, chills, difficulty lying flat, problems breathing, decreased urine output - signs of infection or dehydration - that may necessitate visit to ED for evaluation. R VEHICLE ASSEMBLY SUPERVISOR documented in this encounter Plan of Treatment Scheduled Procedures Name Priority Associated Diagnoses Date/Ti me COLONOSCOPY Encounter for screening for colorectal cancer in high risk patient Family history of rectal cancer documented as of this encounter Visit Diagnoses Not on filedocumented in this encounter Care Teams Cad Cam Programmer Relationship Specialty Start Date End Date Kali Cruz MD [address] INTERNAL MEDICINE [place], [place] [id number] PCP - General 04/09/17 03/21/19 Munira Rick, RN [address] [facility] [address] [place] [address] Thermite Bomb Loader 04/01/18 documented as of this encounter
--- OUTSIDE RECORDS SUMMARY | 2024-10-28 06:26 | XMS_ITS | Encounter Summary ---
Author Organization [facility] Address [address] [place] [address] Care Team Providers Care Board Saw Runner Name Role Phone Kali Cruz MD Primary Care Provider [phone] Munira Rick RN Unavailable [phone] Encounter Details Date Type Department Care Team (Late st Contact Info) Description 11/30/2018 Orders Only Radiology [address] [place] [address] Lucien Olivarez MD PhD [address] [facility] [address] [place] [address] Social History Tobacco Use Types Packs/Day Years Used Date Smoking Tobacco: Never Smokeless Tobacco: Never Sex and Gender Information Value Date Recorded Sex Assigned at Not on file Legal Sex Male 6:28 AM SUCCESS COACH Gender Identity Not on file Sexual Orientation Straight 08/22/2021 9: 23 AM CDT documented as of this encounter Plan of Treatment Scheduled Procedures Name Priority Associated Diagnoses Date/Ti me COLONOSCOPY Encounter for screening for colorectal cancer in high risk patient Family history of rectal cancer documented as of this encounter Visit Diagnoses Not on filedocumented in this encounter Care Teams Board Saw Runner Relationship Specialty Start Date End Date Kali Cruz MD [address] INTERNAL MEDICINE [place], [place] [id number] PCP - General 04/09/17 03/21/19 Munira Rick, RN [address] [facility] [address] [place] [address] Funding Coordinator 04/01/18 documented as of this encounter
--- OUTSIDE RECORDS SUMMARY | 2024-10-28 06:26 | XMS_ITS | Encounter Summary ---
Author Organization [facility] Address [address] [place] [address] Phone Care Team Providers Care Small Engine Trainer Name Role Phone Kali Cruz MD Primary Care Provider [phone] Munira Rick RN Unavailable [phone] Reason for Referral * Diagnostic Imaging (Routine) - Closed Specialty Diagnoses / Procedures Referred By Sascha rey Referred To Contact Radiology Diagnoses High grade B-cell lymphoma (HCC) Procedures PET/CT FDG Skull to Thigh Anita Gillespie MD Phone: tel: fax: [address] [address] Referral ID Status Reason Start Date Expiration Date Visits Re quested Visits Authorized [id number] Closed 12/28/2018 07/08/2020 2 2 R HAMMER OPERATOR * Consultation (Routine) - Closed Specialty Diagnoses / Procedures Referred By Sascha rey Referred To Contact Otolaryngology Diagnoses High grade B-cell lymphoma (HCC) Stan Valdes MD Phone: tel: fax: Stan Valdes MD [address] [place] [address] Phone: tel: fax: Referral ID Status Reason Start Date Expiration Date V isits Requested Visits Authorized [id number] Closed Specialty Services Required 12/28/2018 07/08/2020 1 1 Question Answer Please select the performing region: [facility] (All Locations) [[id number]] To provider: STAN VALDES [[id number]] Comments Please schedule ZAHRA for R cervical LN excisional bx. R HAMMER OPERATOR Encounter Details Date Type Department Care Team (Late st Contact Info) Description 12/28/2018 Orders Only [facility] Oncology [address] [facility] 7th [place] [address] [place] [address] Namita Ahn RMA High grade B-cell lymphoma (CMS/HCC) (Primary Dx) Social History Tobacco Use Types Packs/Day Years Used Date Smoking Tobacco: Never Smokeless Tobacco: Never Sex and Gender Information Value Date Recorded Sex Assigned at Not on file Legal Sex Male 6:28 AM POWER HAMMER OPERATOR Gender Identity Not on file Sexual Orientation Straight 08/22/2021 9: 23 AM CDT documented as of this encounter Plan of Treatment Scheduled Procedures Name Priority Associated Diagnoses Date/Ti me COLONOSCOPY Encounter for screening for colorectal cancer in high risk patient Family history of rectal cancer Scheduled Referrals Name Type Priority Associated Diagnoses Order Schedule Ambulatory referral to ENT Outpatient Referral Routine High grade B-cell lymphoma (CMS/HCC) Expected: 01/04/2019 (Approximate), Expires: 06/27/2019 documented as of this encounter Results * PET/CT FDG Skull to Thigh (01/03/2019 8:48 AM POWER HAMMER OPERATOR) Anatomical Region Laterality Modality N/A Positron Emissio n Tomography (PET) 01/03/2019 10:1 9 AM POWER HAMMER OPERATOR Addenda Addendum by Usha Dias MD on 01/03/2019 12:12 PM POWER HAMMER OPERATOR The Non Critical results were discussed with Dr. Yassine Santos's practitioner, Samreen Vee, by Dr. Yassine Barney M.D. on 01/03/2019 at 11:50 AM. Dictated by: Yassine Barney M.D. Electronically signed by: Usha Dias M.D. Impressions 01/03/2019 10:51 AM POWER HAMMER OPERATOR 1. ??Multiple new hypermetabolic and slightly enlarging [...] imaging. 3. ??Findings of pansinusitis, similar to February neck CT. 4. ??Diffusely increased activity throughout bone medullary cavities the axial and proximal appendicular skeleton, which may represent marrow involvement versus marrow hyperplasia. Recommend correlation with marrow biopsy. Dictated by: Yassine Barney M.D. Electronically signed by: Usha Dias M.D. Narrative 01/03/2019 10:51 AM POWER HAMMER OPERATOR EXAMINATION: TUMOR FDG-PET/CT IMAGING DATE OF [...] before injection of FDG, was 101 mg/dL. ??-Gastroview was given orally. ??After intravenous administration of FDG, noncontrast CT images were obtained for attenuation correction and for fusion with emission PET images to allow for anatomical localization of PET findings. ??Emission PET images were then obtained. ??The study was interpreted on the [employer] workstation. ??The mean liver SUV (reported for quality systems technician purposes) is 1.7. ?? The total scanned [...] before injection of FDG, was 101 mg/dL. MD-Gastroview was given orally. After intravenous administration of FDG, noncontrast CT images were obtained for attenuation correction and for fusion with emission PET images to allow for anatomical localization of PET findings. Emission PET images were then obtained. The study was interpreted on the [employer] workstation. The mean liver SUV (reported for quality systems technician purposes) is 1.7. The total scanned area [...] Diagnosis High grade B-cell lymphoma (HCC)- Primary High grade B-cell lymphoma (HCC) documented in this encounter Care Teams Small Engine Trainer Relationship Specialty Start Date End Date Kali Cruz MD [address] [place] [address] PCP - General 04/09/17 03/21/19 Munira Rick, RN [address] [facility] [address] [place] [address] Formula Room Worker 04/01/18 documented as of this encounter
--- OUTSIDE RECORDS SUMMARY | 2024-10-28 06:26 | XMS_ITS | Encounter Summary ---
Author Organization [facility] Address [address] [place] [address] Care Team Providers Care Paper Production Engineer Name Role Phone Kali Cruz MD Primary Care Provider [phone] Munira Rick RN Unavailable [phone] Reason for Visit * Reason Onset Date Comments Test Results 12/06/2018 Encounter Details Date Type Department Care Team (Late st Contact Info) Description 12/06/2018 Telephone [facility] Transplant Liver [address] [facility] [phone] [place] [address] Munira Rick, RN [address] [facility] [address] [place], [place] [id number] Test Results Social History Tobacco Use Types Packs/Day Years Used Date Smoking Tobacco: Never Smokeless Tobacco: Never Sex and Gender Information Value Date Recorded Sex Assigned at Not on file Legal Sex Male 6:28 AM INSTRUCTION DEAN Gender Identity Not on file Sexual Orientation Straight 08/22/2021 9: 23 AM CDT documented as of this encounter Miscellaneous Notes * Telephone Encounter - Munira Rick RN - 12/06/2018 2:22 PM CST Call placed to pt, spoke with mom. Let her know results of MRI and that pt is to have repeat labs this month. Per pt mom, he has an appointment on 2/[address] scan of neck and appt with Dr. Gillespie.Pt will get labs that day while he is here for appointments. RUCTION DEAN * Telephone Encounter - Munira Rick RN - 12/06/2018 2:20 PM CST ----- Message from Theodore Gresham MD sent at 12/06/2018 1:52 PM INSTRUCTION DEAN ----- Believe this MRI is in response to elevated alk phos and suboptima liver biopsy No biliary ductal abnormalities Await repeat labs that should be done this month (last labs in early November 2018) RUCTION DEAN documented in this encounter Plan of Treatment Scheduled Procedures Name Priority Associated Diagnoses Date/Ti me COLONOSCOPY Encounter for screening for colorectal cancer in high risk patient Family history of rectal cancer documented as of this encounter Results * (ABNORMAL) CBC with auto differential (12/28/2018 8:02 AM INSTRUCTION DEAN) WBC 12.6(H) 3.8 - 9.8 K/cumm CERFRANCISCO BJ Comment:Testing performed by : [facility], [address] [place] [phone] Hgb 15.2 13.8 - 17.2 g/dL CERNER BJ Comment:Testing performed by : [facility], [address] [place] [phone] Hct 43.5 40.7 - 50.3 % CERNER BJ Comment:Testing performed by : [facility], [address] [place] [phone] Plt 406 140 - 440 K/cumm CERNER BJ Comment:Testing performed by : [facility], [address] [place] [phone] MPV 7.7 6.8 - 10.4 fL [facility]ERFRANCISCO BJ Comment:Testing performed by : [facility], [address] [place] [phone] RBC 4.44(L) 4.50 - 5.70 M/cumm [facility]ERFRANC[facility]CO BJ Comment:Testing performed by : [facility], [address] [place] [phone] MCV 97.9(H) 80.0 - 97.6 fL [facility] Comment:Testing performed by : [facility], [address] [place] [phone] MCH 34.2(H) 26.7 - 33.7 pg [facility] BUTCHER Comment:Testing performed by : [facility], [address] [place] [phone] MCHC 35.0 32.7 - 35.5 g/dL [facility] Comment:Testing performed by : [facility], [address] [place] [phone] RDW CV 14.1 11.8 - 14.6 % [facility] Comment:Testing performed by : [facility], [address] [place] [phone] NRBC abs 0.00 0.00 - 0.01 K/cumm [facility] Comment:Testing performed by : [facility], [address] [place] [phone] Blood specimen (specimen) 12/28/2018 8:02 AM INSTRUCTION DEAN 12/28/2018 8:05 AM INSTRUCTION DEAN Narrative [facility] - 12/28/2018 8:09 AM INSTRUCTION DEAN us Theodore Gresham MD LAB BLOOD ORDERABLES Final Result [facility] Department [place] [address] * Tacrolimus level trough (12/28/2018 8:02 AM INSTRUCTION DEAN) Tacrolimus, trough 3.8 ng/mL [facility] Comment: Interpretive Data The therapeutic range for tacrolimus can vary by transplant organ type and sample timing but a trough range of 5 - 15 ng/mL is typical. Testing performed by liquid chromatography-tandem mass spectrometry (LC- MS/MS).This test was developed using an analyte specific reagent. Its performance characteristics were determined by the [facility] in a manner consistent with CLIA requirements. This test has not been cleared or approved by the U.S. Food and Drug Administration. Current interpretive data was last revised on 2016. Blood specimen (specimen) 12/28/2018 8:02 AM INSTRUCTION DEAN 12/28/2018 8:38 AM INSTRUCTION DEAN Narrative [facility] - 12/28/2018 12:01 PM INSTRUCTION DEAN Theodore Gresham MD LAB BLOOD ORDERABLES Final Result Performing Organization Address [facility] Co de Phone Number [facility] Department [place] [address] * Cytomegalovirus (CMV) DNA PCR, quantitative Blood (12/28/2018 7:30 AM INSTRUCTION DEAN) [facility] CMV DNA Not Detected [facility] Comment: Interpretive Data: The quantifiable range of this assay is 137 IUnits/mL to 9,100,000 IUnits/mL (2.14 log IUnits/mL to 6.96 log IUnits/mL). Testing was performed by the [employer] AmpliPrep/NIA TaqMan CMV Test ([employer] Testing performed at [facility] Current interpretive data was last revised on 17. Blood specimen (specimen) 12/28/2018 7:30 AM INSTRUCTION DEAN 12/28/2018 10:31 AM INSTRUCTION DEAN Narrative [facility] - 12/28/2018 6:51 PM INSTRUCTION DEAN Theodore Gresham MD LAB MICROBIOLOGY - GENERAL ORDERABLES Final Result Performing Organization Address 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
--- OUTSIDE RECORDS SUMMARY | 2024-10-28 06:26 | XMS_ITS | Encounter Summary ---
Author Organization [facility] Address [address] [place] [address] Phone Care Team Providers Care Snuff Maker Name Role Phone Kali Cruz MD Primary Care Provider [phone] Munira Rick RN Unavailable [phone] Encounter Details Date Type Department Care Team (Late st Contact Info) Description 11/30/2018 Telephone [facility] Oncology [address] [facility] 7th [place] [address] [place] [address] Samreen Greene RN Social History Tobacco Use Types Packs/Day Years Used Date Smoking Tobacco: Never Smokeless Tobacco: Never Sex and Gender Information Value Date Recorded Sex Assigned at Not on file Legal Sex Male 6:28 AM FINANCE OFFICER Gender Identity Not on file Sexual Orientation Straight 08/22/2021 9: 23 AM CDT documented as of this encounter Miscellaneous Notes * Telephone Encounter - Samreen Greene RN - 11/30/2018 10:14 AM FINANCE OFFICER Brooklynn called to see if Beka has CTs scheduled with his next visit and which portions of his body will be scanned. I let her know that he would be getting CT scans of the neck, chest, abdomen, and pelvis. She relayed that he has an MRI of the abdomen with MRCP scheduled for December as well. She reports Beka has a head cold right now. She noticed an area under right throat that she was unsureabout. She plans to take Beka to PCP to evaluate his cold and determine if this is part of the body's reaction to it. If the area does not improve she will notify me. NCE OFFICER documented in this encounter Plan of Treatment Scheduled Procedures Name Priority Associated Diagnoses Date/Ti me COLONOSCOPY Encounter for screening for colorectal cancer in high risk patient Family history of rectal cancer documented as of this encounter Visit Diagnoses Not on filedocumented in this encounter Care Teams Snuff Maker Relationship Specialty Start Date End Date Kali Cruz MD [address] [facility] [address] [place] [address] PCP - General 04/09/17 03/21/19 Munira Rick RN [address] [facility] [address] [place] [address] Postdoctoral Scholar 04/01/18 documented as of this encounter
--- OUTSIDE RECORDS SUMMARY | 2024-10-28 06:26 | XMS_ITS | Encounter Summary ---
Author Organization [facility] Healthcare Address [address] [place] [address] Care Team Providers Care Furnace Filler Name Role Phone Kali Cruz MD Primary Care Provider [phone] Munira Rick RN Unavailable [phone] Encounter Details Date Type Department Care Team (Late st Contact Info) Description 01/06/2019 7:35 AM TELECOMMUNICATIONS ADMINISTRATOR Anesthesia Event [facility] [address] [place] [address] Azucena Smith MD [address] [facility] [address] [place] [address] Lidia Mark PHONE CIRCUIT OPERATOR [address] [facility] [phone] [place] [address] Anesthesia Record Procedure Summary Procedure Name Responsible Anesthesiologist Anesthesia Start Time Anesthesia Stop Time Excisional lymph node biopsy of neck (Bilateral: Neck) Azucena Smith MD 01/06/19 0735 01/06/19 1015 Events Date Time Event Comment 01/06/2019 0733 0735 An Start 0740 In Room 0740 An Start Data 0800 An Intubation 0800 An Induction The patient was reevaluated immediately before moderate or deep sedation use and before anesthesia induction. 0816 Proc Start 0938 Proc Fin 0947 An Extubation 0950 Out of Room 1015 An Stop 1145 Handoff to RN I completed my handoff [...] the time of handoff: No value filed. Meds Name Total fentaNYL 300 mcg lidocaine 1 % PF 40 mg propofol 170 mg propofol 80.51 mg phenylephrine 100 mcg/mL 700 mcg ceFAZolin 2,000 mg succinylcholine 60 mg albuterol inhaler 8 puff ondansetron (ZOFRAN) injection 4 mg 4 mg LR 1,000 mL NS 0.9% 0 mL * Agents Name O2% N2O Sevoflurane Inspired Sevoflurane * Blood No blood administrations on file. Lines, Drains, and Airways Type Details Placement Removal RETIRED Surgical Site 10/18/18; Medial, Upper; Abdomen; 05/14/20; Not present on admission 10/18/18 0000 by Kaley Varela RN 05/14/20 0000 by Leyla Kahn, SHAILESH Peripheral IV Placement Date: 01/05/19; Placement Time: 1618; Change Due: 01/09/19; Catheter Size: 22 G; Orientation: Anterior, Proximal, Right; Location: Forearm; Site Prep: Chlorhexidine; Inserted by: Shannan Elliott; Insertion Attempts: 1; Patient Tolerance: Tolerated well; Removal Date: 03/10/19; Removal Time: 09; Removal Reason: Not present on admission 01/05/19 1618 by Vero Elliott NP 03/10/19 0921 by Nancy Cunningham RN Closed/Suction/Open Drain 01/06/19; 1; Right; Neck; Bulb; Removal date unknown/not present on admission 01/06/19 0000 by Melissa Hsu RN 12/21/19 1115 by Richar Chatman, SHAILESH ETT Placement Date: 01/06/19; Placement Time: 0800 (created via procedure documentation); Mask Ventilation: 1; Technique: Direct laryngoscopy; Type: ETT - single; Single Lumen Tube Size: 7 mm; Cuffed: Yes; Laryngoscope: Romain; Blade Size: 3; Location: Oral; Grade View: Grade I; Insertion Attempts: 1; Placement Verification: Auscultation, Capnometry; Removal Date: 01/06/19; Removal Time: 94601/06/19 0800 by Moni Hernandez CRNA 01/06/19 0947 by Obinna Bravo CRNA RETIRED Surgical Site 01/06/19; 08; Ri ght; Neck; 05/14/20; Not present on admission 01/06/19 0823 by Melissa Hsu RN 05/14/20 0000 by Leyla Kahn RN documented in this encounter Social History Tobacco Use Types Packs/Day Years Used Date Smoking Tobacco: Never Smokeless Tobacco: Never Sex and Gender Information Value Date Recorded Sex Assigned at Not on file Legal Sex Male 6:28 AM TELECOMMUNICATIONS ADMINISTRATOR Gender Identity Not on file Sexual Orientation Straight 08/22/2021 9: 23 AM CDT documented as of this encounter OR Notes * Anesthesia Postprocedure Evaluation - Flor Marr MD - 01/06/2019 10:31 AM CST Patient: Beka Nichols Procedure Summary Date: 01/06/19 Room / Location: [facility] OR POD 5 ROOM 221 / [facility] OR POD 5 Anesthesia Start: 734 Anesthesia Stop: Procedure: Excisional lymph node biopsy of neck (Bilateral Neck) Diagnosis: High grade B-cell lymphoma (CMS/HCC) (High grade B-cell lymphoma (CMS/HCC) [C85.10]) Surgeon: Stan Valdes MD Responsible Provider: Azucena Smith MD Anesthesia Type: MAC ASA Status: 4 Anesthesia Type: MAC Last vitals BP 118/67 Pulse 93 Temp 37.2 ??C (99 ??F) Resp 16 SpO2 96% Anesthesia Post Evaluation Patient location during evaluation: PACU Patient participation: complete - patient participated Level of consciousness: fully awake Pain score: 5 Pain management: adequate Airway patency: adequate Evidence of recall: no Anesthetic complications: no Cardiovascular status: acceptable Respiratory status: acceptable Hydration status: acceptable Pt is: normothermic Nausea/Vomiting status: none COMMUNICATIONS ADMINISTRATOR * Anesthesia Procedure Notes - Moni Hernandez CRNA - 01/06/2019 8:24 AM CSTAssociated Order(s): Airway Airway Patient location: OR Urgency: elective Date/time: 01/06/2019 8:00 AM Indications for airway management: anesthesia Difficult airway: no Staff: Placed by: Other staff: Obinna Bravo RN Emergent airway documentation: Risks and benefits discussed: [...] yes Technique used for successful ETT placement: direct laryngoscopy Devices/Methods used in placement: intubating stylet Insertion site: oral Blade type: Romain Blade size: 3 Cormack-Lehane (direct): grade I - full view of glottis Cuff volume: 7 mL Cuff inflated with: air ETT to lips: 22 cm Placement verified by: auscultation and CO2 detection Airway secured with: silk tape Number of attempts: 1 COMMUNICATIONS ADMINISTRATOR * Anesthesia Preprocedure Evaluation - Azucena Smith MD - 01/04/2019 10:47 AM CST [facility] Preoperative Evaluation Record Inpatient Preoperative Evaluation ([facility]) Date: 01/04/19 Anesthesia Evaluation Beka Nichols is a 23 y.o. male Procedure(s): Excisional lymph node biopsy of neck HISTORY HPI Beka Nichols is a 23 y.o. male who is being evaluated prior to undergoing lymph node biopsy of neck for lymphoma . Past Medical History Neurological Pertinent negatives: seizures; neuromuscular disease; CVA/stroke; TIA; CEA; ICA stenosis; dementia/mild cognitive impairment and carotid artery stent Cardiovascular + DVT/PE Number of DVT/PE episodes: 1. Last VTE date: 10/19/17. Pertinent negatives: hypertension ; CAD ; [place] ; CABG ; valvular heart disease; valve replacement; atrial fibrillation; arrhythmia; pacemaker/ICD; PVD; negative for CHF; drug-eluting stent(s); bare metal stent(s) and coronary angioplasty Respiratory Pertinent negatives: COPD; asthma; sleep apnea (WINTER); pulmonary hypertension; no O2 use outside thehospital and non-smoker Hepatic / Heme + Liver disease (s/p liver transplant for autoimmune hepatitis , followed by [facility]) - other. 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 S/p splenectomy 2012) Pertinent negatives: history of Carol positive Gastrointestinal Pertinent negatives: GERD and hiatal hernia Renal / Pertinent negatives: renal disease; dialysis and nephrolithiasis Musculoskeletal/Pain Pertinent negatives: chronic pain; chronic opioid use and previous treatment for opioid use disorder Endocrine / Other + Cancer history- s/p chemo. Cancer type: B cell lymphoma. Last chemotherapy Dec 2017. + Transplanted organ - liver. + Infectious disease - pneumonia. Pertinent negatives: diabetes mellitus; thyroid disease; obesity (BMI >30) and rheumatological disease Functional Capacity Functional capacity: 4-6 METs Comments: Decreased functional capacity currently in the setting of pneumonia Review of Systems + productive cough (known PNA improving) + fever + previous transfusion Pertinent negatives: wheezing; SOB; recent cold/flu; palpitations; orthopnea; pedal edema; PND; Sickle Cell disease/trait; transfusion reaction; melena/hematochezia; easy bruising; bleeding problems;syncope; dizziness; muscle weakness; chronic pain; numbness/tingling; hard of hearing; vision loss; heartburn; nausea; dysphagia; diarrhea; dentures/partials; chipped/loose teeth; abdominal pain; diaphoresis and no unexpected weight changeChest pain: left chest muscle hurts with coughing and movement. PAT Summary and Plans Cardiac risk classification of planned procedure: low cardiac risk. Disposition: suitable for same day surgery. Preoperative assessment status: complete. Initial preoperative evaluation discussed with: Beka Toth MD Additional comments: Beka Nichols is a 23 y.o. male who is being evaluated prior to undergoing a low cardiac risk surgery. Revised Cardiac Risk Index factors are (none) for a total RCRI of 0 out of6. Functional capacity is 4-6 METs. Obstructive sleep apnea (WINTER) screening status is STOP-Bang=2 suggesting low risk for WINTER. Blood bank needs for day of procedure: No type and screen needed Pending labs/tests include: CBC BMP reviewed. +WBC elevated at 17 likely due to current PNA. +Discussed case with CPAP attending (re: WBC 17 and current PNA). Pt denies SOB, cough improving. IPAP assessment complete. Preoperative evaluation performed by Sue Mullins NP on 01/04/19 at 11:03 AM. I have interviewed and examined the patient and agree with this Pre-Procedural Assessment performedby the above primary evaluating PHONE CIRCUIT OPERATOR, who is currently in the CPAP PHONE CIRCUIT OPERATOR Orientation interval. Signed by: Katt Santos NP on 01/04/19 at 11:13 AM . Patient Active Problem List Diagnosis ??? High grade B-cell lymphoma (CMS/HCC) ??? Cytomegalovirus infection (CMS/HCC) ??? History of liver transplant (CMS/HCC) ??? Idiopathic thrombocytopenic purpura (CMS/HCC) ??? 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 Autoimmune hepatitis (CMS/HCC) ??? Hypogammaglobulinemia (CMS/HCC) ??? Neutropenia associated with autoimmune disease (CMS/HCC) Past Medical History: Diagnosis Date ??? Generalized enlarged lymph nodes Lymphadenopathy, generalized - (Added by TW Conv) ??? History of non-Hodgkin's lymphoma History of non-Hodgkin's lymphoma - (Added by TW Conv) ??? Localized enlarged lymph nodes LAD (lymphadenopathy), mediastinal - (Added by TW Conv) ??? Other complications of unspecified transplanted organ and tissue PTLD (post-transplant lymphoproliferative disorder) - (Added by TW Conv) ??? Pulmonary emboli (CMS/HCC) Past Surgical History: Procedure Laterality Date ??? BIOPSY LYMPH NODE SUPERFICIAL N/A 05/22/2014 ??? SPLENECTOMY ??? US ABDOMEN COMPLETE W LIVER DUPLEX Right 10/18/2018 ??? US GUIDED BIOPSY LIVER N/A 10/18/2018 No Known Allergies HOME MEDICATIONS : tacrolimus (PROGRAF) 0.5 mg capsule valGANciclovir (VALCYTE) 450 mg tablet Current Facility-Administered Medications: ??? acetaminophen (TYLENOL) tablet 650 mg, 650 mg, oral, Q6H PRN, 650 mg at 01/04/19834 ??? cefepime (MAXIPIME) 1000 mg/10 mL in sterile water (premix) 1,000 mg, 1,000 mg, intravenous, Q8H, Stopped at 01/04/19904 ??? guaiFENesin ER (MUCINEX) extended release tablet 600 mg, 600 mg, oral, BID, 600 mg at 01/04/19826 ??? heparin 100 unit/mL injection 500 Units, 5 mL, IV flush, Once ??? HYDROmorphone (DILAUDID) 1 mg/mL injection - ADS Override Pull, , , ??? lidocaine (XYLOCAINE) 20 mg/mL (2 %) injection 15 mL, 15 mL, subcutaneous, Once ??? polyvinyl alcohol-povidone (REFRESH CLASSIC) 1.4-0.6 % ophthalmic solution 1 drop, 1 drop, eacheye, TID PRN, 1 drop at 01/03/192005 ??? sodium chloride 0.9% flush 0.5-20 mL, 0.5-20 mL, intra-catheter, Q8H PIPPA, 10 mL at 01/04/19826 ??? sodium chloride 0.9% flush 0.5-20 mL, 0.5-20 mL, intra-catheter, PRN ??? sodium chloride 7 % nebulizer solution - ADS Override Pull, , , ??? tacrolimus (PROGRAF) capsule 0.5 mg, 0.5 mg, oral, BID, 0.5 mg at 01/04/19826 ??? valGANciclovir (VALCYTE) tablet 450 mg, 450 mg, oral, BID, 450 mg at 01/04/19826 ??? vancomycin 1000 mg/200 mL in dextrose 5% (premix) 1,000 mg, 1,000 mg, intravenous, Q12H, Stopped at 01/04/19628 Social History Tobacco Use Smoking Status Never Smoker Smokeless Tobacco Never Used Substance and Sexual Activity Alcohol Use Not on file Substance and Sexual Activity Drug Use Not on file Family History Problem Relation Age of Onset ??? Rectal cancer Mother Rectal cancer - (Added by TW Conv) ??? Diabetes type II Sister Family history of type 2 diabetes mellitus - (Added by TW Conv) ??? Anesthesia problems Other PAT Physical Exam Airway Exam: Mallampati: III Cervical ROM: FROM TM distance: >4 Cardiovascular Exam: Rate: regular Rhythm: regular Pulmonary Exam: LCTA, bilat EENT Exam: trachea midline Dental Exam: Appears intact Skin Exam: Skin is warm. Abdominal exam: Abdomen is soft. Bowel sounds are present. Current state: Patient's current state is cooperative. Vitals: 01/03/19200901/04/19 0515 01/04/19 0523 BP: 109/60 98/49 95/60 Pulse: 88 82 Resp: 16 16 Temp: 37.2 ??C (98.96 ??F) 37 ??C (98.6 ??F) SpO2: 96% 94% PT: 01/03/2019: 12.9 sec INR: 01/03/2019: 1.20 APTT: 01/03/2019: 28.8 sec Hgb A1C: No results found for requested labs within last 720 hours. CBC RBC: 01/04/2019: 4.41 M/cumm RDW: No results found for requested labs within last 720 hours. MCHC: 01/04/2019: 34.4 g/dL MCH: 01/04/2019: 32.9 pg MCV: 01/04/2019: 95.7 fL Hct: 01/04/2019: 42.2 % Hgb: 01/04/2019: 14.5 g/dL WBC: 01/04/2019: 17.0 K/cumm* MPV: 01/04/2019: 10.1 fL Platelets: 01/04/2019: 437 K/cumm* RDW CV: 01/04/2019: 13.6 % RDW Sd: 01/04/2019: 48.4 fL* BMP Glucose: 01/04/2019: 88 mg/dL Calcium: 01/04/2019: 9.4 mg/dL Sodium: 01/04/2019: 138 mmol/L Potassium: 01/04/2019: 4.8 mmol/L CO2: 01/04/2019: 25 mmol/L Chloride: 01/04/2019: 103 mmol/L BUN: 01/04/2019: 8 mg/dL Creatinine: 01/04/2019: 0.75 mg/dL* STOP-Bang Total Score: 2 DOS Physical Exam Medical history, medications, and allergies reviewed. Attestation: With today's edits, I endorse the findings of the anesthesia pre-evaluation assessment dated: 01/04/2019. Airway Exam: Mallampati: III Cervical ROM: FROM TM distance: 3.5 Cardiovascular Exam: Rate: regular Rhythm: regular Pulmonary Exam: LCTA, bilat EENT Exam: trachea midline Dental Exam: Appears intact Skin Exam: Skin is warm and dry. Current state: Patient's current state is cooperative and interactive. Anesthesia Plan ASA 4 My patient is approved for the Anesthesia Controlled Medication protocol when under care of a GOODWILL 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 Planned anesthesia: MAC Induction: Induction: intravenous. Postoperative Plan: Postoperative administration opioids intended. No postoperative mechanical ventilation intended. Informed Consent: Discussed plan with GOODWILL 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. Anesthesia plan and risks discussed with patient. Consent and Attending signature: I and/or my designee have discussed the anesthesia plan, benefits, possible alternatives, parental presence at time of induction (if indicated), and clinically relevant risks that may include dental injury, unintentional awareness, and/or other complications. The patient and/or parent/legal guardian understand, and agree to proceed. All questions answered. COMMUNICATIONS ADMINISTRATOR COMMUNICATIONS ADMINISTRATOR COMMUNICATIONS ADMINISTRATOR documented in this encounter Plan of Treatment Scheduled Procedures Name Priority Associated Diagnoses Date/Ti mt COLONOSCOPY Encounter for screening for colorectal cancer in high risk patient Family history of rectal cancer documented as of this encounter Procedures Procedure Name Priority Date/Time Associated Diagnosis Comments AK AN PROCEDURE PLACEHOLDER Routine 01/06/2019 8:24 AM TELECOMMUNICATIONS ADMINISTRATOR Procedure Note - Moni Hernandez CRNA - 01/06/2019 8:24 AM CSTThis note is in progress. Airway Patient location: OR Urgency: elective Date/time: 01/06/2019 8:00 AM Indications for airway management: anesthesia Difficult airway: no Staff: Placed by: Other staff: Obinna Bravo RN Emergent airway documentation: Risks and benefits discussed: [...] yes Technique used for successful ETT placement: direct laryngoscopy Devices/Methods used in placement: intubating stylet Insertion site: oral Blade type: Romain Blade size: 3 Cormack-Lehane (direct): grade I - full view of glottis Cuff volume: 7 mL Cuff inflated with: air ETT to lips: 22 cm Placement verified by: auscultation and CO2 detection Airway secured with: silk tape Number of attempts: 1 AK AN ELECTIVE ENDOTRACHEAL AIRWAY Routine 01/06/2019 8:24 AM TELECOMMUNICATIONS ADMINISTRATOR Procedure Note - Moni Hernandez CRNA - 01/06/2019 8:24 AM CSTThis note is in progress. Airway Patient location: OR Urgency: elective Date/time: 01/06/2019 8:00 AM Indications for airway management: anesthesia Difficult airway: no Staff: Placed by: Other staff: Obinna Bravo RN Emergent airway documentation: Risks and benefits discussed: [...] yes Technique used for successful ETT placement: direct laryngoscopy Devices/Methods used in placement: intubating stylet Insertion site: oral Blade type: Romain Blade size: 3 Cormack-Lehane (direct): grade I - full view of glottis Cuff volume: 7 mL Cuff inflated with: air ETT to lips: 22 cm Placement verified by: auscultation and CO2 detection Airway secured with: silk tape Number of attempts: 1 documented in this encounter Visit Diagnoses Not on filedocumented in this encounter Administered Medications Inactive Administered Medications - up to 3 most recent administrations Medication Order MAR Action Action Date Dose Rate Site albuterol HFA (PROVENTIL HFA,VENTOLIN HFA,PROAIR HFA) 90 mcg/actuation inhaler inhalation, As needed, Starting on Wed01/06/19 at 0915, Anesthesia Intra-op Given 01/06/2019 9:15 AM TELECOMMUNICATIONS ADMINISTRATOR 8 puffs ceFAZolin (ANCEF) injection intravenous, As needed, Starting on Wed01/06/19 at 0821, Anesthesia Intra-op Given 01/06/2019 8:21 AM TELECOMMUNICATIONS ADMINISTRATOR 2,000 mg fentaNYL (SUBLIMAZE) preservative free injection intravenous, As needed, Starting on Wed01/06/19 at 0820, Anesthesia Intra-op Given 01/06/2019 10:00 AM TELECOMMUNICATIONS ADMINISTRATOR 50 mcg Given 01/06/2019 9:30 AM TELECOMMUNICATIONS ADMINISTRATOR 50 mcg Given 01/06/2019 8:44 AM TELECOMMUNICATIONS ADMINISTRATOR 50 mcg Lactated Ringer's (LR) infusion Continuous PRN, Starting on Wed01/06/19 at 0740, Anesthesia Intra-op New Bag 01/06/2019 7:40 AM TELECOMMUNICATIONS ADMINISTRATOR lidocaine PF (XYLOCAINE) 10 mg/mL (1 %) preservative free injection As needed, Starting on Wed01/06/19 at 0800, Anesthesia Intra-op Given 01/06/2019 8:00 AM TELECOMMUNICATIONS ADMINISTRATOR 40 mg ondansetron (ZOFRAN) injection 4 mg 4 mg, intravenous, Administer over 2 Minutes, Every 8 hours PRN, nausea, vomiting, Starting on Wed01/04/19 at 1537 Given 01/06/2019 9:37 AM TELECOMMUNICATIONS ADMINISTRATOR 4 m g Given 01/04/2019 5:02 PM TELECOMMUNICATIONS ADMINISTRATOR 4 mg phenylephrine (KOBE-SYNEPHRINE) 0.5 mg/5 mL (100 mcg/mL) premix syringe in 0.9% sodium chloride intravenous, As needed, Starting on Wed01/06/19 at 0805, Anesthesia Intra-op Given 01/06/2019 9:29 AM TELECOMMUNICATIONS ADMINISTRATOR 100 mcg Given 01/06/2019 9:20 AM TELECOMMUNICATIONS ADMINISTRATOR 100 mcg Given 01/06/2019 9:13 AM TELECOMMUNICATIONS ADMINISTRATOR 100 mcg propofol (DIPRIVAN) IV intravenous, As needed, Starting on Wed01/06/19 at 0809, Anesthesia Intra-op Given 01/06/2019 8:44 AM TELECOMMUNICATIONS ADMINISTRATOR 20 mg Given 01/06/2019 8:09 AM TELECOMMUNICATIONS ADMINISTRATOR 30 mg Given 01/06/2019 8:00 AM TELECOMMUNICATIONS ADMINISTRATOR 120 mg propofol (DIPRIVAN) IV intravenous, Continuous PRN, Starting on Wed01/06/19 at 0805, Anesthesia Intra-op New Bag 01/06/2019 8:05 AM TELECOMMUNICATIONS ADMINISTRATOR 40 mcg/kg/min 13.06 mL/hr sodium chloride 0.9% infusion Continuous PRN, Starting on Wed01/06/19 at 0914, Anesthesia Intra-op New Bag 01/06/2019 9:14 AM TELECOMMUNICATIONS ADMINISTRATOR succinylcholine (ANECTINE) injection As needed, Starting on Wed01/06/19 at 0800, Anesthesia Intra-op Given 01/06/2019 8:00 AM TELECOMMUNICATIONS ADMINISTRATOR 60 mg documented in this encounter Orders Procedures Count Last Ordered Date First Orde red Date Airway 1 01/06/2019 documented in this encounter Care Teams Furnace Filler Relationship Specialty Start Date End Date Kali Cruz MD [address] [place] [address] PCP - General 04/09/17 03/21/19 Munira Rick, RN [address] [facility] [address] [place] [address] Rubber Heel And Sole Press Tender 04/01/18 documented as of this encounter
--- OUTSIDE RECORDS SUMMARY | 2024-10-28 06:26 | XMS_ITS | Encounter Summary ---
Author Organization [facility] Address [address] [place] [address] Phone Care Team Providers Care Marble Setter Helper Name Role Phone Kali Cruz MD Primary Care Provider [phone] Munira Rick RN Unavailable [phone] Reason for Visit * Reason Comments Post-op Encounter Details Date Type Department Care Team (Latest Contact Info) Description 01/11/2019 8:15 AM CDT Office Visit [facility] ([facility]) - [facility] ENT [address] 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) Social History Tobacco Use Types Packs/Day Years Used Date Smoking Tobacco: Never Smokeless Tobacco: Never Sex and Gender Information Value Date Recorded Sex Assigned at Not on file Legal Sex Male 6:28 AM SHOPFITTER Gender Identity Not on file Sexual Orientation Straight 08/22/2021 9: 23 AM CDT documented as of this encounter Last Filed Vital Signs Vital Sign Reading Time Taken Comments Blood Pressure - - Pulse - - Temperature - - Respiratory Rate - - Oxygen Saturation - - Inhaled Oxygen Concentration - - Weight 57.3 kg (126 lb 6.4 oz) 01/11/2019 8:10 A M CDT Height - - Body Mass Index 19.22 01/03/2019 2:48 PM SHOPFITTER documented in this encounter Progress Notes * Stan Valdes MD - 01/11/2019 8:15 AM CDT [facility] Department of Otolaryngology - Head & Neck Surgery 01/11/2019 Name: Beka Nichols Date of : 1995 Chief Complaint Patient presents with ??? 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 He underwent an excisional lymph node biopsy few days ago. He comesfor drain removal. He the wound is healing well. No issues. No signs of infection. PHYSICAL EXAM: Vitals: 01/11/19 0810 Weight: 57.3 kg (126 lb 6.4 oz) General: Well-developed, well-nourished in no apparent distress. Appropriate affect. Head and Face: Normocephalic, atraumatic. Skin: No cutaneous lesions of the face or neck. Neurologic: Cranial nerves II through XII are grossly intact. Eyes: Pupils are equal, round, and reactive to light and accommodation. Extraocular muscles are intact. No scleral icterus or injection. Ears: Auricles well formed. Mastoid soft and nontender, no erythema. Canal is clear. Nose: Dorsum is midline. No masses or polyps visualized on anterior rhinoscopy. No drainage or discharge. Oral Cavity/Oropharynx: No visible mucosal lesions. Tongue protrudes midline, palate elevates symmetrically. Tonsils are not enlarged. Floor of mouth is pink and soft. No palpable abnormalities of the floor of mouth, oral tongue or base of tongue. Neck: No evidence of lymphadenopathy, masses or tenderness. The salivary gland examination is normal bilaterally. Well-healed neck incision. The incision sites clean dry intact over the right lateral neck Endocrine: No palpable abnormalities of the thyroid gland. Cardiovascular: Extremities are warm and well perfused. Pulmonary: Normal quiet breathing. No respiratory distress, stridor, or wheeze. DATA REVIEWED: Pathology Reports: Pending ASSESSMENT/PLAN: Young gentleman with history of liver proliferative disorder. He underwent the excisional lymph node biopsy due to some increased lymphadenopathy. Doing well. Pathology pending documented in this encounter Plan of Treatment [...] End Da te levoFLOXacin (LEVAQUIN) 750 mg tabletIndications:Pneum onia, Community Acquired Take 1 tablet (750 mg total) by mouth ferris wheel attendant before breakfast for 3 doses Therapy completed 01/07/2019 01/11/2019 oxyCODONE (ROXICODONE) 5 mg immediate release tabletIndications:Pain Take 1 tablet (5 mg total) by mouth every 6 (six) hours as needed for pain Therapy completed 01/06/2019 01/11/2019 documented as of this encounter Care Teams Marble Setter Helper Relationship Specialty Start Date End Date Klai Cruz MD [address] [facility] [address] [place] [address] PCP - General 04/09/17 03/21/19 Munira Rick, RN [address] [address] Spare Hand Carding 04/01/18 documented as of this encounter
--- OUTSIDE RECORDS SUMMARY | 2024-10-28 06:26 | XMS_ITS | Encounter Summary ---
Author Organization [facility] Healthcare Address [address] [place] [address] Care Team Providers Care Pretzel Packer Name Role Phone Kali Cruz MD Primary Care Provider [phone] Munira Rick RN Unavailable [phone] Encounter Details Date Type Department Care Team (Late st Contact Info) Description 12/06/2018 Telephone [facility] Trans[facility] Liver [address] [facility] [phone] [place] [address] Tarik Perry Social History Tobacco Use Types Packs/Day Years Used Date Smoking Tobacco: Never Smokeless Tobacco: Never Sex and Gender Information Value Date Recorded Sex Assigned at Not on file 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 FOOD SAFETY Gender Identity Not on file Sexual Orientation Straight 08/22/2021 9: 23 AM CDT documented as of this encounter Miscellaneous Notes * Telephone Encounter - Tarik Perry - 12/06/2018 10:30 AM CST Pt motherSonia [phone] left vm requesting med refill: [facility] [phone] GER FOOD SAFETY documented in this encounter Plan of Treatment Scheduled Procedures Name Priority Associated Diagnoses Date/Ti me COLONOSCOPY Encounter for screening for colorectal cancer in high risk patient Family history of rectal cancer documented as of this encounter Visit Diagnoses Not on filedocumented in this encounter Care Teams Pretzel Packer Relationship Specialty Start Date End Date Kali Cruz MD [address] [facility] [address] [place] [address] PCP - General 04/09/17 03/21/19 Munira Rick, RN [address] [address] Shot Grinder Operator 04/01/18 documented as of this encounter
--- OUTSIDE RECORDS SUMMARY | 2024-10-28 06:26 | XMS_ITS | Encounter Summary ---
Author Organization [facility] Healthcare Address [address] [place] [address] Care Team Providers Care Telemarketing Representative Name Role Phone Kali Cruz MD Primary Care Provider [phone] Munira Rick RN Unavailable [phone] Encounter Details Date Type Department Care Team (Late st Contact Info) Description 10/07/2018 Telephone [facility] Transplant Liver [address] [facility] [address] [phone] [place], [place] [id number] Munira Rick, RN [address] [facility] [address] [place], [place] [id number] Social History Tobacco Use Types Packs/Day Years Used Date Smoking Tobacco: Never Smokeless Tobacco: Never Sex and Gender Information Value Date Recorded Sex Assigned at Not on file Legal Sex Male 6:28 AM ROADMASTER Gender Identity Not on file Sexual Orientation Straight 08/22/2021 9: 23 AM CDT documented as of this encounter Miscellaneous Notes * Telephone Encounter - Munira Rick RN - 10/07/2018 1:44 PM CST Call placed to US to confirm dates and time for US and possible liver biopsy. Called pt and spoke with pt mom. She is aware that pt needs an INR prior to biopsy and has asked that lab be done in am of biopsy due to pt work schedule. Let pt mom know that pt should arrive at 0730 to [facility] admitting and alert them he needs STAT lab done. Ordered INR in Epic and requested STAT processing. 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 Mom stated understanding. Sent Dr. Gresham message that pt is having US and biopsy with Dr. Shawn Meneses with date and time. MASTER documented in this encounter Plan of Treatment Scheduled Procedures Name Priority Associated Diagnoses Date/Ti me COLONOSCOPY Encounter for screening for colorectal cancer in high risk patient Family history of rectal cancer documented as of this encounter Results * Protime-INR (10/18/2018 7:15 AM ROADMASTER) PT 10.9 8.5 - 13.0 sec [facility] INR 1.02 0.80 - 1.21 [facility] Comment: Interpretive Data Inpatient therapeutic ranges* Atrial fibrillation ?2.0-3.0 INR Venous thrombo-embolism ?2.0-3.0 INR Bioprosthetic heart valve ?* Mechanical heart valve, bileaflet or tilting disk,aortic position ? 2.0-3.0 INR All other,or bileaflet or tilting disk, in mitral position ? 2.5-3.5 INR *See the pharmacy resource directory (PHRED) for an updated copy of the Tool Book at [email or web address] Current Interpretive Data was last revised 2012. Blood specimen (specimen) 10/18/2018 7:15 AM [address]MASTER 10/18/2018 7:24 AM [address]MASTER Narrative [facility] - 10/18/2018 7:56 [address]MA[address] us Theodore Gresham MD LAB BLOOD ORDERABLES Final Result [facility] Department [place] [address] documented in this encounter Visit Diagnoses Diagnosis Liver replaced by transplant (HCC)- Primary Liver replaced by transplant Liver replaced by transplant (HCC) Liver replaced by transplant documented in this encounter Care Teams Telemarketing Representative Relationship Specialty Start Date End Date Kali Cruz MD [address] INTERNAL MEDICINE [place], [place] [id number] PCP - General 04/09/17 03/21/19 Munira Rick, RN [address] [facility] [address] [place] [address] Loop Tacker 04/01/18 documented as of this encounter
--- OUTSIDE RECORDS SUMMARY | 2024-10-28 06:26 | XMS_ITS | Encounter Summary ---
Author Organization [facility] Healthcare Address [address] [place] [address] Care Team Providers Care Quarter Folder Name Role Phone Kali Cruz MD Primary Care Provider [phone] Munira Rick RN Unavailable [phone] Encounter Details Date Type Department Care Team (Late st Contact Info) Description 09/30/2018 Orders Only [facility] Transplant Liver [address] 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 Gender Identity Not on file Sexual Orientation Straight 08/22/2021 9: 23 AM CDT documented as of this encounter Plan of Treatment Scheduled Procedures Name Priority Associated Diagnoses Date/Ti me COLONOSCOPY Encounter for screening for colorectal cancer in high risk patient Family history of rectal cancer documented as of this encounter Visit Diagnoses Not on filedocumented in this encounter Care Teams Quarter Folder Relationship Specialty Start Date End Date Kali Cruz MD [address] MED[address]INE [place], [place] [phone] PCP - General 04/09/17 03/21/19 Munira Rick, RN [address] [address] Media Services Director 04/01/18 documented as of this encounter
--- OUTSIDE RECORDS SUMMARY | 2024-10-28 06:26 | XMS_ITS | Encounter Summary ---
Author Organization [facility] Healthcare Address [address] [place] [address] Care Team Providers Care Inbound Call Center Agent Name Role Phone Kali Cruz MD Primary Care Provider [phone] Munira Rick RN Unavailable [phone] Reason for Referral * Diagnostic Imaging (Routine) - Closed Specialty Diagnoses / Procedures Referred By Contac t Referred To Contact Diagnoses History of liver transplant (CMS/HCC) (HCC) Procedures US Guided Biopsy Liver Theodore Gresham MD Phone: tel: fax: [address] [address] Referral ID Status Reason Start Date Expiration Date Visits Re quested Visits Authorized [id number] Closed 10/18/2018 10/18/2018 1 1 RHOUSE TENDER Encounter Details Date Type Department Care Team (Late st Contact Info) Description 09/30/2018 Orders Only [facility] Transplant Liver [address] [facility] [address] [phone] [place] [address] Sharron Paez RN [address] [facility] [address] [place] [address] History of liver transplant (CMS/HCC) (Primary Dx) Social History Tobacco Use Types Packs/Day Years Used Date Smoking Tobacco: Never Smokeless Tobacco: Never Sex and Gender Information Value Date Recorded Sex Assigned at Not on file Legal Sex Male 6:28 AM POWERHOUSE TENDER Gender Identity Not on file Sexual Orientation Straight 08/22/2021 9: 23 AM CDT documented as of this encounter Plan of Treatment Scheduled Procedures Name Priority Associated Diagnoses Date/Ti me COLONOSCOPY Encounter for screening for colorectal cancer in high risk patient Family history of rectal cancer documented as of this encounter Results * US Guided Biopsy Liver (10/18/2018 9:39 AM POWERHOUSE TENDER) Anatomical Region Laterality Modality Leg N/A Ultrasound 10/18/2018 11:4 0 AM POWERHOUSE TENDER Impressions 10/18/2018 11:51 AM POWERHOUSE TENDER 1. Postoperative changes of left lobe orthotopic liver transplant. Otherwise normal hepatic ultrasound. 2. Patent portal and hepatic venous systems. ??No thrombosis. 3. Patent hepatic arterial system. ??No thrombosis or stenosis. 4. Successful ultrasound-guided random core needle biopsy of the liver. 5. Please see separate Surgical Pathology results for final interpretation. Dictated by: Mary Potter M.D. Electronically signed by: Сергей Meneses M.D. Narrative 10/18/2018 11:51 AM POWERHOUSE TENDER EXAMINATION: 1. LIMITED ABDOMINAL SONOGRAM 2. LIVER TRANSPLANT DOPPLER 3. 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 ??Patient now has elevated liver enzymes. COMPARISON: ??CT from 12/21/2017 TECHNIQUE: For the core biopsy, the procedure for ultrasound-guided core biopsy ??was explained to and discussed with the patient. Risks were explained to include, but not be limited to, hemorrhage, infection, injury to adjacent organs, non-diagnostic specimen and adverse reaction to medications administered. The patient voiced understanding and wished to proceed and signed the consent form. FINDINGS: LIMITED ABDOMINAL SONOGRAM: Liver: There are postoperative changes of orthotopic liver transplant of a left hepatic lobe. ??The echotexture is normal. ??The echogenicity is normal. There is no surface nodularity. No focal solid lesions are visualized. ?? Gallbladder: The gallbladder is surgically absent. Bile Duct: There is no intrahepatic bile duct dilatation. The common duct measures prox, mid, and distal measurements are appropriate in the proximal, mid and distal segments respectively. ?? Right Kidney: There is no hydronephrosis in the visualized portions of the right kidney. Pancreas: The visualized portions of the head and body of the pancreas are normal. LIVER TRANSPLANT DOPPLER: Color Doppler and spectral analysis were used to evaluate the hepatic vasculature. ?? Portal veins: The main portal vein as well as the right and left branches have hepatopetal (antegrade) flow. ??No thrombosis is visualized. ?? Hepatic veins: The middle, right, and left hepatic veins are patent with antegrade flow. ?? Portosplenic confluence: The portosplenic confluence is patent with appropriate directional flow. Hepatic artery: The main hepatic artery as well as the right and left branches are patent with antegrade flow. The resistive index in the main hepatic artery measures 0.66 and in the left hepatic artery 0.67. ??There is no right hepatic artery secondary to left lobe liver transplant. ??The accelerations and acceleration times are normal in the main hepatic artery and branch arteries. IVC: The inferior vena cava at the level of the liver is patent with appropriate directional flow. ?? CORE BIOPSY: ??An appropriate site was localized in the left hepatic lobe for random core biopsy. The patient's overlying skin was prepped and draped in the usual sterile fashion. Local anesthesia was achieved via subcutaneous and deep administration with 4 mL of Lidocaine 1%. Under realtime ultrasound guidance, 2 passes were made with an 18 gauge Corvocet core biopsy needle, 1.5 cm throw. The core specimens were placed in formalin and hand delivered to Surgical Pathology for evaluation. The patient's skin was cleaned and dressed. The patient tolerated the entire procedure well without immediate complications. Dr. Meneses, the attending radiologist, was present from the beginning to the end of the procedure. Dr. Mary Potter performed the biopsy. Procedure Note Сергей Meneses MD - 10/18/2018 EXAMINATION: 1. LIMITED ABDOMINAL SONOGRAM 2. LIVER TRANSPLANT DOPPLER 3. 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 Patient now has elevated liver enzymes. COMPARISON: CT from 12/21/2017 TECHNIQUE: For the core biopsy, the procedure for ultrasound-guided core biopsy was explained to and discussed with the patient. Risks were explained to include, but not be limited to, hemorrhage, infection, injury to adjacent organs, non-diagnostic specimen and adverse reaction to medications administered. The patient voiced understanding and wished to proceed and signed the consent form. FINDINGS: LIMITED ABDOMINAL SONOGRAM: Liver: There are postoperative changes of orthotopic liver transplant of a left hepatic lobe. The echotexture is normal. The echogenicity is normal. There is no surface nodularity. No focal solid lesions are visualized. Gallbladder: The gallbladder is surgically absent. Bile Duct: There is no intrahepatic bile duct dilatation. The common duct measures prox, mid, and distal measurements are appropriate in the proximal, mid and distal segments respectively. Right Kidney: There is no hydronephrosis in the visualized portions of the right kidney. Pancreas: The visualized portions of the head and body of the pancreas are normal. LIVER TRANSPLANT DOPPLER: Color Doppler and spectral analysis were used to evaluate the hepatic vasculature. Portal veins: The main portal vein as well as the right and left branches have hepatopetal (antegrade) flow. No thrombosis is visualized. Hepatic veins: The middle, right, and left hepatic veins are patent with antegrade flow. Portosplenic confluence: The portosplenic confluence is patent with appropriate directional flow. Hepatic artery: The main hepatic artery as well as the right and left branches are patent with antegrade flow. The resistive index in the main hepatic artery measures 0.66 and in the left hepatic artery 0.67. There is no right hepatic artery secondary to left lobe liver transplant. The accelerations and acceleration times are normal in the main hepatic artery and branch arteries. IVC: The inferior vena cava at the level of the liver is patent with appropriate directional flow. CORE BIOPSY: An appropriate site was localized in the left hepatic lobe for random core biopsy. The patient's overlying skin was prepped and draped in the usual sterile fashion. Local anesthesia was achieved via subcutaneous and deep administration with 4 mL of Lidocaine 1%. Under realtime ultrasound guidance, 2 passes were made with an 18 gauge CorJabong.comt core biopsy needle, 1.5 cm throw. The core specimens were placed in formalin and hand delivered to Surgical Pathology for evaluation. The patient's skin was cleaned and dressed. The patient tolerated the entire procedure well without immediate complications. Dr. Meneses, the attending radiologist, was present from the beginning to the end of the procedure. Dr. Mary Potter performed the biopsy. IMPRESSION: 1. Postoperative changes of left lobe orthotopic liver transplant. Otherwise normal hepatic ultrasound. 2. Patent portal and hepatic venous systems. No thrombosis. 3. Patent hepatic arterial system. No thrombosis or stenosis. 4. Successful ultrasound-guided random core needle biopsy of the liver. 5. Please see separate Surgical Pathology results for final interpretation. Dictated by: Mary Potter M.D. Electronically signed by: Сергей Meneses M.D. us Theodore Gresham MD [facility] US PROCEDURES Final Re sult documented in this encounter Visit Diagnoses Diagnosis History of liver transplant (CMS/HCC) (HCC)- Primary Liver replaced by transplant History of liver transplant (CMS/HCC) (HCC) Liver replaced by transplant Liver replaced by transplant (HCC) Liver replaced by transplant documented in this encounter Care Teams Inbound Call Center Agent Relationship Specialty Start Date End Date Klai Cruz MD [address] [facility] [address] [place] [address] PCP - General 04/09/17 03/21/19 Munira Rick, RN [address] [facility] [address] [place] [id number] Umbrella Frame Maker 04/01/18 documented as of this encounter
--- OUTSIDE RECORDS SUMMARY | 2024-10-28 06:26 | XMS_ITS | Encounter Summary ---
Author Organization [facility] Address [address] [place] [address] Phone Care Team Providers Care Lumber Yard Worker Name Role Phone Kali Cruz MD Primary Care Provider [phone] Munira Rick RN Unavailable [phone] Encounter Details Date Type Department Care Team (Late st Contact Info) Description 11/04/2018 Orders Only [facility] Gastroenterology [address] [facility] [address] [place] [address] [place] [address] Theodore Gresham MD [address] [place] [address] Social History Tobacco Use Types Packs/Day Years Used Date Smoking Tobacco: Never Smokeless Tobacco: Never Sex and Gender Information Value Date Recorded Sex Assigned at Not on file Legal Sex Male 6:28 AM OPTOELECTRONICS ENGINEER Gender Identity Not on file Sexual Orientation Straight 08/22/2021 9: 23 AM CDT documented as of this encounter Plan of Treatment Scheduled Procedures Name Priority Associated Diagnoses Date/Ti me COLONOSCOPY Encounter for screening for colorectal cancer in high risk patient Family history of rectal cancer documented as of this encounter Procedures Procedure Name Priority Date/Time Associated Diagnosis Comments COPY(IES) SENT TO: Routine 11/04/2018 9: 44 AM OPTOELECTRONICS ENGINEER CMV DNA QN, PCR Routine 11/04/2018 9:44 AM OPTOELECTRONICS ENGINEER TACROLIMUS LEVEL, TROUGH Routine 11/04/2018 9:44 AM OPTOELECTRONICS ENGINEER CBC WITH AUTO DIFFERENTIAL Routine 11/04/2018 9:44 AM OPTOELECTRONICS ENGINEER GAMMA GT Routine 11/04/2018 9:44 AM OPTOELECTRONICS ENGINEER COMPREHENSIVE METABOLIC PANEL Routine 11/04/2018 9:44 AM OPTOELECTRONICS ENGINEER documented in this encounter Results * Tacrolimus level trough (11/04/2018 9:44 AM OPTOELECTRONICS ENGINEER) [facility] Tacrolimus, highly Sensitive, LC/MS/MS 6.0 mcg/L [employer] [place] Comment: No definitive therapeutic or toxic ranges have been established. Optimal blood drug levels are influenced by type of transplant, patient response, time post- transplant, co-administration of other drugs, and drug formulation. The following trough range is a suggested guideline: 5.0-20.0 mcg/L. This test was developed and its analytical performance characteristics have been determined by [employer]. It has not been cleared or approved by the FDA. This assay has been validated pursuant to the CLIA regulations and is used for clinical purposes. 11/04/2018 9:44 AM OPTOELECTRONICS ENGINEER 11/04/2018 9:44 AM OPTOELECTRONICS ENGINEER Narrative [facility] - 11/07/2018 3:56 PM OPTOELECTRONICS ENGINEER FASTING:NO FASTING: NO Resulting Agency Comment Performing Organization Information: ?Site ID: [place] ?Name: [employer] [facility] ?Address: [id number] [place] [address] [place], [place] [address] ?Director: Jason Buckner D.O., MPH us Theodore Gresham MD LAB BLOOD ORDERABLES Final Result [facility] [place] * CMV DNA QN, PCR (11/04/2018 9:44 AM OPTOELECTRONICS ENGINEER) SOURCE BLOOD [facility] - [place] CMV DNA qn <200 IU/mL [facility] - [place] CMV DNA log IU/mL <2.30 Log IU/mL [facility] Comment: REFERENCE RANGE: CMV DNA, QN PCR: <200 IU/mL CMV DNA, QN PCR: <2.30 Log IU/mL This test was developed and its analytical performance characteristics have been determined by [facility]. It has not been cleared or approved by the U.S. Food and Drug Administration. This assay has been validated pursuant to the CLIA regulations and is used for clinical purposes. 11/04/2018 9:44 AM OPTOELECTRONICS ENGINEER 11/04/2018 9:44 AM OPTOELECTRONICS ENGINEER Narrative [facility] - 11/07/2018 3:56 PM OPTOELECTRONICS ENGINEER FASTING:NO FASTING: NO Resulting Agency Comment Performing Organization Information: ?Site ID: [id number] ?Name: [facility] [facility] ?Address: [address] [place] [id number] ?Director: Richie Rodriguez MD Theodore Gresham MD LAB MICROBIOLOGY - GENERAL ORDERABLES Final Result Performing Organization Address City/State/[facility] Co de Phone Number [facility] - [place], [place] * (ABNORMAL) Comprehensive metabolic panel (11/04/2018 9:44 AM OPTOELECTRONICS ENGINEER) Glucose 91 65 - 139 mg/dL [facility] [place] Comment: ? Non-fasting reference interval BUN 11 7 - 25 mg/dL [facility] [place] Creatinine 0.90 0.60 - 1.35 mg/dL [facility] [place] eGFR NON-AFR. H[place] 118 > OR = 60 mL/min/1. 73m2 [facility] [place] EGFR 137 > OR = 60 mL/min/1. 73m2 [facility] [place] BUN/creat ratio NOT APPLICABLE 6 - 22 (calc) [facility] [place] Sodium 142 135 - 146 mmol/L [facility] [place] Potassium, pl 4.1 3.5 [...] mg/dL [facility] [place] Alk phos 236(H) 40 - 115 U/L [facility] [place] AST 32 10 - 40 U/L [facility] [place] ALT (SGPT) 48(H) 9 - 46 U/L [facility] [place] 11/04/2018 9:44 AM OPTOELECTRONICS ENGINEER 11/04/2018 9:44 AM OPTOELECTRONICS ENGINEER Narrative [facility] - 11/07/2018 3:56 PM OPTOELECTRONICS ENGINEER FASTING:NO FASTING: NO Resulting Agency Comment Performing Organization Information: ?Site ID: [place] ?Name: [employer] [facility] ?Address: [facility] [place] [address] ?Director: Jason Buckner D.O., MPH Theodore Gresham MD LAB BLOOD ORDERABLES Final Result [facility] - [place] * (ABNORMAL) Gamma GT (11/04/2018 9:44 AM OPTOELECTRONICS ENGINEER) GGT 209(H) 3 - 70 U/L [facility] - [place] 11/04/2018 9:44 AM OPTOELECTRONICS ENGINEER 11/04/2018 9:44 AM OPTOELECTRONICS ENGINEER Narrative [facility] - 11/07/2018 3:56 PM OPTOELECTRONICS ENGINEER FASTING:NO FASTING: NO Resulting Agency Comment Performing Organization Information: ?Site ID: [place] ?Name: [employer] [facility] ?Address: [address] [place] [address] ?Director: Jason Buckner D.O., MPH us Theodore Gresham MD LAB BLOOD ORDERABLES Final Result [facility] - [place] * (ABNORMAL) CBC with auto differential (11/04/2018 9:44 AM OPTOELECTRONICS ENGINEER) WBC 7.1 3.8 - 10.8 Thousand/ uL [facility] [place] RBC, POC 4.58 4.20 - 5.80 Million/u L [facility] [place] Hgb 15.6 13.2 - 17.1 g/dL [facility] [place] Hct 44.4 38.5 - 50.0 % [facility] [place] MCV 96.9 80.0 - 100.0 fL [facility] [place] MCH 34.1(H) 27.0 - 33.0 pg [facility] [place] MCHC 35.1 32.0 - 36.0 g/dL [facility] [place] Rdw 14.6 11.0 - 15.0 % [facility] [place] Platelets 464(H) 140 - 400 Thousand/ uL [facility] [place] MPV 9.9 7.5 - 12.5 fL [facility] [place] Neutrophils, abs 2,606 1,500 - 7,800 cells/uL [facility] [place] Lymphocytes, abs 2,620 850 - 3,900 cells/uL [facility] [place] Monocyte abs 1,690(H) 200 - 950 cells/uL [facility] [place] Eosinophils, abs 142 15 - 500 cells/uL [facility] [place] Basophils, abs 43 0 - 200 cells/uL [facility] [place] Neutrophils 36.7 % [facility] [place] Lymphocyte pct 36.9 % [facility] [place] Monocytes 23.8 % [facility] [place] Eosinophils 2.0 % [facility] [place] Basophils 0.6 % [facility] [place] 11/04/2018 9:44 AM OPTOELECTRONICS ENGINEER 11/04/2018 9:44 AM OPTOELECTRONICS ENGINEER Narrative [facility] - 11/07/2018 3:56 PM OPTOELECTRONICS ENGINEER FASTING:NO FASTING: NO Resulting Agency Comment Performing Organization Information: ?Site ID: [place] ?Name: [facility] ?Address: [address] [place] [address] ?Director: Jason Buckner D.O., MPH us Theodore Gresham MD LAB BLOOD ORDERABLES Final Result [facility] [place] * COPY(IES) SENT TO: (11/04/2018 9:44 AM OPTOELECTRONICS ENGINEER) COPY(IES) SENT TO: [facility] Comment: ?[facility] - COPY TO ACCT ?[address] ?[place] [address] 11/04/2018 9:44 AM OPTOELECTRONICS ENGINEER 11/04/2018 9:44 AM OPTOELECTRONICS ENGINEER Narrative [facility] - 11/07/2018 3:56 PM OPTOELECTRONICS ENGINEER FASTING:NO FASTING: NO Theodore Gresham MD LAB BLOOD ORDERABLES Final Result [facility] documented in this encounter Visit Diagnoses Not on filedocumented in this encounter Care Teams Lumber Yard Worker Relationship Specialty Start Date End Date Kali Cruz MD [address] [place] [address] PCP - General 04/09/17 03/21/19 Munira Rick, RN [address] [facility] [address] [place] [address] Javascript Engineer 04/01/18 documented as of this encounter
--- OUTSIDE RECORDS SUMMARY | 2024-10-28 06:26 | XMS_ITS | Encounter Summary ---
Author Organization [facility] Address [address] [place] [address] Care Team Providers Care Care Trainer Name Role Phone Kali Cruz MD Primary Care Provider [phone] Munira Rick RN Unavailable [phone] Reason for Referral * Diagnostic Imaging (Routine) - Closed Specialty Diagnoses / Procedures Referred By Contac t Referred To Contact Radiology Diagnoses Liver replaced by transplant (HCC) Procedures MRI Abdomen MRCP W WO Contrast Theodore Gresham MD Phone: tel: fax: [address] [address] Referral ID Status Reason Start Date Expiration Date Visits Re quested Visits Authorized [id number] Closed 10/24/2018 05/04/2020 1 1 ECT CONTROL ANALYST Reason for Visit * Reason Onset Date Comments Treatment Plan Update 10/24/2018 Encounter Details Date Type Department Care Team (Late st Contact Info) Description 10/24/2018 Telephone [facility] Liver [address] [facility] [phone] [place], [place] [id number] Munira Rick, SHAILESH [address] [facility] [address] [place] [address] Treatment Plan Update Social History Tobacco Use Types Packs/Day Years Used Date Smoking Tobacco: Never Smokeless Tobacco: Never Sex and Gender Information Value Date Recorded Sex Assigned at Not on file Legal Sex Male 6:28 AM PROJECT CONTROL ANALYST Gender Identity Not on file Sexual Orientation Straight 08/22/2021 9: 23 AM CDT documented as of this encounter Miscellaneous Notes * Telephone Encounter - Munira Rick RN - 10/24/2018 7:51 AM CST Called pt regarding biopsy results. Reviewed with pt mom that biopsy was sub- optimal but no visibleabnormalities identified. Let her know that Beka needs to get labs within two weeks and that we are also scheduling pt for MRCP to further evaluate bile ducts. Will ask Sharita to please schedule pt for MRCP- please schedule pt for elevated LFT's. Please schedule pt per Dr. Gresham. Thank you. ECT CONTROL ANALYST * Telephone Encounter - Munira Rcik RN - 10/24/2018 7:48 AM CST ----- Message from Theodore Gresham MD sent at 10/23/2018 7:29 PM PROJECT CONTROL ANALYST ----- - biopsy results noted. A. suboptimal but no visible abnormalities - please have him get repeat labs either this week or when [place] please also schedule him for MRI/MRCP ECT CONTROL ANALYST documented in this encounter Plan of Treatment Scheduled Procedures Name Priority Associated Diagnoses Date/Ti me COLONOSCOPY Encounter for screening for colorectal cancer in high risk patient Family history of rectal cancer documented as of this encounter Results * MRI Abdomen MRCP W WO Contrast (12/05/2018 8:30 PM PROJECT CONTROL ANALYST) Anatomical Region Laterality Modality Body N/A Magnetic Resonan ce 12/06/2018 10:0 4 AM PROJECT CONTROL ANALYST Impressions 12/06/2018 12:32 PM PROJECT CONTROL ANALYST Postsurgical changes of left lobe orthotopic liver transplant. ??No steatosis, surface nodularity, or biliary ductal dilatation. Dictated by: Joaquin Chao M.D. Electronically signed by: Garrett He M.D. Narrative 12/06/2018 12:32 PM PROJECT CONTROL ANALYST EXAMINATION: 1. ??MAGNETIC RESONANCE IMAGING OF THE ABDOMEN WITH AND WITHOUT CONTRAST 2. 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 ??Three-dimensional reconstruction of the bile ducts was performed on the scanner and also interpreted. Protocol: Liver Creatinine: 0.9 mg/dL Estimated GFR: Greater than 60 ml/min/1.73 meters squared Contrast: Dotarem 12 mL COMPARISON: No prior magnetic resonance imaging is available for comparison. ??Comparison is made to CT dated 12/20/2017. FINDINGS: Liver: Postsurgical changes of orthotopic liver transportation of the left hepatic lobe are present. ??No steatosis or iron deposition. Bile ducts: No biliary ductal dilatation. Focal lesions: None. Vasculature: Portal and hepatic veins. Gallbladder: Absent. Pancreas: Normal. Spleen: Absent. Adrenals: Normal. Kidneys: Normal. Other Findings: No pleural effusion or ascites. ??No enhancing marrow lesions. Procedure Note Garrett He MD - 12/06/2018 EXAMINATION: 1. MAGNETIC RESONANCE IMAGING OF THE ABDOMEN WITH AND WITHOUT CONTRAST 2. 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 Three-dimensional reconstruction of the bile ducts was performed on the scanner and also interpreted. Protocol: Liver Creatinine: 0.9 mg/dL Estimated GFR: Greater than 60 ml/min/1.73 meters squared Contrast: Dotarem 12 mL COMPARISON: No prior magnetic resonance imaging is available for comparison. Comparison is made to CT dated 12/20/2017. FINDINGS: Liver: Postsurgical changes of orthotopic liver transportation of the left hepatic lobe are present. No steatosis or iron deposition. Bile ducts: No biliary ductal dilatation. Focal lesions: None. Vasculature: Portal and hepatic veins. Gallbladder: Absent. Pancreas: Normal. Spleen: Absent. Adrenals: Normal. Kidneys: Normal. Other Findings: No pleural effusion or ascites. No enhancing marrow lesions. IMPRESSION: Postsurgical changes of left lobe orthotopic liver transplant. No steatosis, surface nodularity, or biliary ductal dilatation. Dictated by: Joaquin Chao M.D. Electronically signed by: Garrett He M.D. Theodore Gresham MD IMG MRI PROCEDURES Final R esult documented in this encounter Visit Diagnoses Diagnosis Liver replaced by transplant (HCC)- Primary Liver replaced by transplant Liver replaced by transplant (HCC) Liver replaced by transplant documented in this encounter Care Teams Care Trainer Relationship Specialty Start Date End Date Kali Cruz MD [address] [facility] [address] [place] [address] PCP - General 04/09/17 03/21/19 Munira Rick, RN [address] [address] [employer] Terrazzo Finisher 04/01/18 documented as of this encounter
--- OUTSIDE RECORDS SUMMARY | 2024-10-28 06:26 | XMS_ITS | Encounter Summary ---
Author Organization [facility] Healthcare Address [address] [place] [address] Care Team Providers Care Final Inspector And Tester Name Role Phone Kali Cruz MD Primary Care Provider [phone] Munira Rick RN Unavailable [phone] Encounter Details Date Type Department Care Team (Latest Contact Info) Description 01/03/2019 2:11 PM LITIGATION ASSOCIATE - 01/06/2019 7:00 PM LITIGATION ASSOCIATE Hospital Encounter [address] [id number] Anita Gillespie MD [address] [address] Lamar Sherman MD [address] [address] High grade B-cell lymphoma (CMS/HCC) (Primary Dx) Discharge Disposition: Discharge to home or self care Social History Tobacco Use Types Packs/Day Years Used Date Smoking Tobacco: Never Smokeless Tobacco: Never Sex and Gender Information Value Date Recorded Sex Assigned at Not on file Legal Sex Male 6:28 AM LITIGATION ASSOCIATE Gender Identity Not on file Sexual Orientation Straight 08/22/2021 9: 23 AM CDT documented as of this encounter Last Filed Vital Signs Vital Sign Reading Time Taken Comments Blood Pressure 106/58 01/06/2019 11:10 AM LITIGATION ASSOCIATE Pulse 78 01/06/2019 11:10 AM LITIGATION ASSOCIATE Temperature 37.2 ??C (99 ??F) 01/06/2019 10:00 AM LITIGATION ASSOCIATE Respiratory Rate 15 01/06/2019 11:10 AM LITIGATION ASSOCIATE Oxygen Saturation 93% 01/06/2019 11:10 AM LITIGATION ASSOCIATE Inhaled Oxygen Concentration - - Weight 54.4 kg (120 lb) 01/03/2019 2:48 PM LITIGATION ASSOCIATE Height 172.7 cm (5' 8 ) 01/03/2019 2:48 PM LITIGATION ASSOCIATE Body Mass Index 18.25 01/03/2019 2:48 PM LITIGATION ASSOCIATE documented in this encounter Discharge Summaries * Emili Tidwell MD - 01/06/2019 12:50 PM CST Inpatient Discharge Summary BRIEF OVERVIEW Admitting Provider: Lamar Sherman MD Discharge Provider: Anita Gillespie MD Primary Care Physician at Discharge: Kali Cruz MD [phone] Admission Date: 01/03/2019 Discharge Date: 01/06/2019 Admission Location: [facility] Primary Discharge Diagnosis: Healthcare associated pneumonia Secondary Discharge Diagnosis: Healthcare-associated pneumonia High grade B-cell lymphoma (CMS/HCC) History of liver transplant (CMS/HCC) 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 * DETAILS OF HOSPITAL STAY Presenting Problem/History of Present Illness: 23 yo WM w/ PMH liver txp, C-myc+, EBV+ PTLD presented as direct admit after findings of relapsing lymphoma with bilateral pneumonia. ?? The patient reports that he has had a cough for the last three months which has been worsening. He denies fevers, sweats, night sweats, or chills. He has been increasingly fatigued resulting in sleeping all day the Wednesday prior to admission. He denies abdominal pain, diarrhea, nausea, or vomiting. No rhinorrhea, congestion, sneezing or sick contacts. At the meantime, he has noticed increasing lymphadenopathy. ?? He as last seen at his oncologist's Dr. Gillespie's on 12/28. At that visit, the discussion of increased lymphadenopathy provoked an outpatient workup for relapsed disease. He underwent PET scan today which was notable for Low the diaphragm consistent with progression. This study was also s/f new right lower lobe and Left upper lobe consolidation (more likely pneumonia than PTLD) as well as increased uptake of the bone marrow. ?? Vital signs were notable for a temperature to 38.7 as well as tachycardia. Hospital Course: # Bilateral pneumonia PET/ CT (01/03/19) showed lung consolidations in right lower lobe and left upper lobe. On admission, WBC was 16.3 and febrile to 38.9. No growth was seen in either blood culture or sputum culture. Pt was started on cefepime and vancomycin and switched to levaquin 750 mg daily on the 3rd day for a 7-day course in total (end date 01/09). QTc was 435. For the persistent cough, mucinex 600mg BID was given and the cough has improved. He should get follow up imaging to assess for resolution. # Hx of PTLD Stage EMY IPI3, EBV positive, c-myc positive, post-transplant lymphoproliferative disorder (PTLD) -pt of Dr. Head. S/p R-CHOP x1 08/2017, DA-EPOCH-R last dose 09/2017- 12/2017, IT MTX w/ cycle III. PET/ CT (01/03/19) showed multiple new hypermetabolic and slightly enlarging lymph nodes above and below the diaphragm concerning with progression of disease. Bone marrow biopsy performed on 01/04 with aspirate pending. Lymph node excision biopsy was done by ENT on 01/06 with a TATI drain left in the right neck. He will follow up with ENT for a wound check and drain removal. Serum CMV and EBV PCR were negative. His oncologist Dr. Gillespie arranged this admission and was notified of the patient's discharge to arrange appropriate follow up. Replacement of the port would be an outpatient procedure. 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 He was continued on home Tacrolimus 0.5 mg BID and its trough level was 6. No changes to tacrolimus regimen wasrecommended by transplant pharmacy. He follows with [facility]. # Hx of CMV viremia CMV was last detected on 09/28/18 on PCR screening but was negative on 10/06/18, 11/04/18 and 01/03/19. Pt was continued on home valganciclovir 450 mg BID. Test Results Pending at Discharge: Order Current Status Surgical pathology In process Aerobic culture and gram stain Sputum Lung Preliminary result Operative Procedures Performed: Procedure(s): Excisional lymph node biopsy of neck Discharge Details Physical Exam at Discharge: Discharge Condition: good Pulse: 78 Resp: 15 BP: 106/58 Temp: 37.2 ??C (99 ??F) Weight: 54.4 kg (120 lb) Pertinent Exam Findings at Discharge: NAD. NCAT. PERRL. MMM. TATI drain out of right side of neck with minimal erythema and swelling. RRR On RA. S/NT/ND Ambulates independently. Discharge Disposition: Discharge to home or self care Code Status at Discharge: Full Discharge Instructions: Ok to shower. Keep dressing over it in shower, dab dry. For mild-moderate pain, take tylenol up to 3g a day (for 325mg tabs, that is 2 tabs 4 times a day). Use the oxycodone pain medicine for severe pain, and take senna with it to prevent constipation. Discharge Medications: Current Medications TAKE these medications tacrolimus 0.5 mg capsule Commonly known as: PROGRAF Take 1 capsule (0.5 mg total) by mouth 2 (two) times a day. This medication is very important: It prevents organ rejection. valGANciclovir 450 mg tablet Commonly known as: VALCYTE Take 1 tablet (450 mg total) by mouth 2 (two) times a day. This medication is very important: It prevents dangerous infection. levoFLOXacin 750 mg tablet Commonly known as: LEVAQUIN Take 1 tablet (750 mg total) by mouth division roadmaster before breakfast for 3 doses oxyCODONE 5 mg immediate release tablet Commonly known as: ROXICODONE Take 1 tablet (5 mg total) by mouth every 6 (six) hours as needed for pain senna-docusate 8.6-50 mg Commonly known as: PERICOLACE Take 2 tablets by mouth daily Outpatient Follow-Up: Future Appointments Date Time Provider Department Center 10/04/2019 8:00 AM [facility] Liver TXP [facility] Cosigned by Lamar Sherman MD at 01/10/2019 5:37 PM CDT documented in this encounter Discharge Instructions * Discharge Instructions* Emili Tidwell MD - 01/06/2019 1:42 PM LITIGATION ASSOCIATE Ok to shower. Keep dressing over it in shower, dab dry. For mild-moderate pain, take tylenol up to 3g a day (for 325mg tabs, that is 2 tabs 4 times a day). Use the oxycodone pain medicine for severe pain, and take senna with it to prevent constipation. GATION ASSOCIATE documented in this encounter Medications at Time of Discharge levoFLOXacin (LEVAQUIN) 750 mg tabletIndication s:Pneumonia, Community Acquired Take 1 tablet (750 mg total) by mouth division roadmaster before breakfast for 3 doses 3 tablet [...] 12/06/2018 9 documented as of this encounter Ordered Prescriptions Prescription Sig Dispense Quantity Refills Last Filled Start Date End Date levoFLOXacin (LEVAQUIN) 750 mg tabletIndications: Pneumonia, Community Acquired Take 1 tablet (750 mg total) by mouth division roadmaster before breakfast for 3 doses 3 tablet 01/07/2019 9 senna-docusate (PERICOLACE) 8.6-50 mgIndications:cons tipation,Take it as long as you are taking oxycodone Take 2 tablets by mouth daily 10 tablet 01/06/2019 9 oxyCODONE (ROXICODONE) 5 mg immediate release tabletIndications: Pain Take 1 tablet (5 mg total) by mouth every 6 (six) hours as needed for pain 15 tablet 01/06/2019 9 senna-docusate (PERICOLACE) 8.6-50 mgIndications:cons tipation,Take it as long as you are taking oxycodone Take 2 tablets by mouth daily 10 tablet 01/06/2019 9 oxyCODONE (ROXICODONE) 5 mg immediate release tabletIndications: Pain Take 1 tablet (5 mg total) by mouth every 6 (six) hours as needed for pain 8 tablet 01/06/2019 9 documented in this encounter Discharge Disposition Disposition Code Departure Means Destination Discharge to home or self care documented in this encounter Progress Notes * Violeta Her MD - 01/06/2019 10:17 AM CST Otolaryngology - Head & Neck Surgery Daily Progress Subjective Chief complaint: No chief complaint on file. Interval History: Status post excisional node biopsy of the right neck. Objective VITALS, 24HR MIN/MAX: Temp Min: 36.8 ??C (98.2 ??F) Max: 36.9 ??C (98.4 ??F) Pulse Min: 74 Max: 106 BP Min: 95/47 Max: 120/70 Resp Min: 14 Max: 24 SpO2 Min: 95 % Max: 98 % I&O I/O this shift: In: 1000 [I.V.:1000] Out: - /I/O last 2 completed shifts: In: - Out: 1125 [Urine:1125] Physical Exam: Vitals: 01/06/19 0710 01/06/19 0715 01/06/19 0720 01/06/19 0725 BP: 103/60 120/70 BP Location: Patient Position: Pulse: 79 87 106 80 Resp: 24 21 14 23 Temp: TempSrc: SpO2: 95% 96% 96% 95% Weight: Height: General: awake, NAD. Appropriate affect. Head: NC, AT Neck: Incision is clean/dry, steristrips overlying the wound. Small surgical drain just posterior to the incision line. Lab/Radiology/Diagnostic Review: LABS 24 HOURS: Laboratory review: Lab results in the last 12 hours: Recent Results (from the past 12 hour(s)) CBC with auto differential Collection Time: 01/06/19 4:55 AM Result Value Ref Range WBC 12.8 (H) 3.8 - 9.9 K/cumm Hgb 13.9 13.0 - 17.5 g/dL Hct 39.6 38.9 - 50.3 % Plt 410 (H) 150 - 400 K/cumm MPV 10.1 9.1 - 12.3 fL RBC 4.21 (L) 4.30 - 5.80 M/cumm MCV 94.1 81.3 - 96.4 fL MCH 33.0 27.1 - 33.3 pg MCHC 35.1 32.3 - 35.7 g/dL RDW CV 14.0 11.1 - 14.9 % RDW SD 49.0 (H) 35.7 - 48.1 fL NRBC Abs 0.00 0.00 - 0.01 K/cumm Magnesium Collection Time: 01/06/19 4:55 AM Result Value Ref Range Magnesium 1.8 1.4 - 2.5 mg/dL Phosphorus Collection Time: 01/06/19 4:55 AM Result Value Ref Range Phosphorus, pl 3.3 2.3 - 4.5 mg/dL Uric acid Collection Time: 01/06/19 4:55 AM Result Value Ref Range Uric acid 3.0 3.0 - 8.0 mg/dL Differential, auto Collection Time: 01/06/19 4:55 AM Result Value Ref Range Neutrophil absolute 7.4 (H) 1.7 - 6.5 K/cumm Immature granulocyte absolute 0.3 (H) 0.0 - 0.1 K/cumm Lymphocytes absolute 2.2 0.8 - 3.3 K/cumm Monocyte absolute 2.6 (H) 0.2 - 0.8 K/cumm Eosinophils absolute 0.2 0.0 - 0.5 K/cumm Basophils, abs 0.0 0.0 - 0.1 K/cumm Neutrophils 57.9 % Immature granulocytes 2.6 % Lymphocytes 17.2 % Monocytes 20.1 % Eosinophils 1.8 % Basophils 0.4 % Basic metabolic panel Collection Time: 01/06/19 4:55 AM Result Value Ref Range Sodium 138 135 - 145 mmol/L Potassium, pl 4.9 3.3 - 4.9 mmol/L Chloride 106 97 - 110 mmol/L CO2 25 22 - 32 mmol/L Anion Gap 7 2 - 15 mmol/L BUN 8 8 - 25 mg/dL Creatinine 0.74 (L) 0.80 - 1.30 mg/dL Glucose 87 70 - 199 mg/dL Calcium 8.9 8.5 - 10.3 mg/dL No recent results to review Assessment/Plan Principal Problem: High grade B-cell lymphoma (CMS/HCC) IMPRESSION: Patient is a 23 yo M now status post excisional node biopsy. PLAN: 1. No antibiotics are needed from ENT perspective 2. If in-house, will need to empty and measure drain outputs Q6H. When discharged, family should measure the drain output and record. Once sufficiently low, the drain can be removed (<30ml over 24hours). We put the right neck drain care orders into [facility]. 3. Steristrips will fall off on their own. 4. Patient can follow-up in [address] Valdes ([phone]) for wound check and removal of drain (if it hasn't been removed earlier). Patient can call this number if he wishes to remove the drain earlier and meets aforementioned outputs. GATION ASSOCIATE * Emili Tidwell MD - 01/06/2019 7:16 AM CST Internal Medicine Daily Progress Subjective Chief complaint: PTLD Interval History: Went for excisional lymph node biopsy this AM Came back in a lot of pain with a TATI drain in right side of neck Objective Scheduled Medications: [DEC Hold] guaiFENesin ER 600 mg oral BID [DEC Hold] levoFLOXacin 750 mg oral Daily - 0600 [Dec] sodium chloride 0.9% 0.5-20 mL intra-catheter Q8H PIPPA [DEC Hold] tacrolimus 0.5 mg oral BID [MAR Hold] valGANciclovir 450 mg oral BID Continuous Medications: PRN Medications: ??? [DEC Hold] acetaminophen ??? [DEC Hold] ondansetron ??? [DEC Hold] oxyCODONE ??? [DEC Hold] polyvinyl alcohol-povidone ??? sodium chloride 0.9 % ??? [DEC Hold] sodium chloride 0.9% Vitals: Most Recent : Vitals: 01/06/19 0655 BP: Pulse: 77 Resp: 23 Temp: SpO2: 96% 24hr Min/Max: Temp Min: 36.8 ??C (98.2 ??F) Max: 36.9 ??C (98.4 ??F) Pulse Min: 74 Max: 80 BP Min: 95/47 Max: 106/56 Resp Min: 16 Max: 23 SpO2 Min: 95 % Max: 98 % I/O: I/O last 2 completed shifts: In: - Out: 1125 [Urine:1125] No intake/output data recorded. Physical Exam: Gen: Lying in bed. Stiff. Trying not to move head. Had received IV morphine with partial relief of pain. HEENT: NCAT. Anicteric. MMM. Cards: RRR, no murmurs. Pulm: Comfortable on RA. Decreased breath sounds at RL base, no wheezes or crackles Abd: S/NT/ND Derm: Warm and dry. No ulcers or lesions or rashes. Psych: Appropriate. Neuro: Non-focal. AAOx4. Moves all extremities spontaneously. Lab/Radiology/Diagnostic Review: Recent Results (from the past 24 hour(s)) Protime-INR Collection Time: 01/05/19 3:54 PM Result Value Ref Range PT 11.8 8.5 - 13.0 sec INR 1.10 0.80 - 1.21 aPTT Collection Time: 01/05/19 3:54 PM Result Value Ref Range aPTT 31.7 25.0 - 37.0 sec CBC with auto differential Collection Time: 01/05/19 3:54 PM Result Value Ref Range WBC 11.8 (H) 3.8 - 9.9 K/cumm Hgb 15.6 13.0 - 17.5 g/dL Hct 44.9 38.9 - 50.3 % Plt 457 (H) 150 - 400 K/cumm MPV 10.2 9.1 - 12.3 fL RBC 4.71 4.30 - 5.80 M/cumm MCV 95.3 81.3 - 96.4 fL MCH 33.1 27.1 - 33.3 pg MCHC 34.7 32.3 - 35.7 g/dL RDW CV 14.2 11.1 - 14.9 % RDW SD 49.7 (H) 35.7 - 48.1 fL NRBC Abs 0.00 0.00 - 0.01 K/cumm Differential, auto Collection Time: 01/05/19 3:54 PM Result Value Ref Range Neutrophil absolute 7.3 (H) 1.7 - 6.5 K/cumm Immature granulocyte absolute 0.3 (H) 0.0 - 0.1 K/cumm Lymphocytes absolute 2.1 0.8 - 3.3 K/cumm Monocyte absolute 1.9 (H) 0.2 - 0.8 K/cumm Eosinophils absolute 0.1 0.0 - 0.5 K/cumm Basophils, abs 0.1 0.0 - 0.1 K/cumm Neutrophils 61.8 % Immature granulocytes 2.3 % Lymphocytes 17.9 % Monocytes 16.2 % Eosinophils 1.0 % Basophils 0.8 % CBC with auto differential Collection Time: 01/06/19 4:55 AM Result Value Ref Range WBC 12.8 (H) 3.8 - 9.9 K/cumm Hgb 13.9 13.0 - 17.5 g/dL Hct 39.6 38.9 - 50.3 % Plt 410 (H) 150 - 400 K/cumm MPV 10.1 9.1 - 12.3 fL RBC 4.21 (L) 4.30 - 5.80 M/cumm MCV 94.1 81.3 - 96.4 fL MCH 33.0 27.1 - 33.3 pg MCHC 35.1 32.3 - 35.7 g/dL RDW CV 14.0 11.1 - 14.9 % RDW SD 49.0 (H) 35.7 - 48.1 fL NRBC Abs 0.00 0.00 - 0.01 K/cumm Magnesium Collection Time: 01/06/19 4:55 AM Result Value Ref Range Magnesium 1.8 1.4 - 2.5 mg/dL Phosphorus Collection Time: 01/06/19 4:55 AM Result Value Ref Range Phosphorus, pl 3.3 2.3 - 4.5 mg/dL Uric acid Collection Time: 01/06/19 4:55 AM Result Value Ref Range Uric acid 3.0 3.0 - 8.0 mg/dL Differential, auto Collection Time: 01/06/19 4:55 AM Result Value Ref Range Neutrophil absolute 7.4 (H) 1.7 - 6.5 K/cumm Immature granulocyte absolute 0.3 (H) 0.0 - 0.1 K/cumm Lymphocytes absolute 2.2 0.8 - 3.3 K/cumm Monocyte absolute 2.6 (H) 0.2 - 0.8 K/cumm Eosinophils absolute 0.2 0.0 - 0.5 K/cumm Basophils, abs 0.0 0.0 - 0.1 K/cumm Neutrophils 57.9 % Immature granulocytes 2.6 % Lymphocytes 17.2 % Monocytes 20.1 % Eosinophils 1.8 % Basophils 0.4 % Basic metabolic panel Collection Time: 01/06/19 4:55 AM Result Value Ref Range Sodium 138 135 - 145 mmol/L Potassium, pl 4.9 3.3 - 4.9 mmol/L Chloride 106 97 - 110 mmol/L CO2 25 22 - 32 mmol/L Anion Gap 7 2 - 15 mmol/L BUN 8 8 - 25 mg/dL Creatinine 0.74 (L) 0.80 - 1.30 mg/dL Glucose 87 70 - 199 mg/dL Calcium 8.9 8.5 - 10.3 mg/dL I have reviewed the above laboratory results. Imaging Results: No results found. Assessment/Plan 23 yo WM w/ PMH liver txp, ??C-myc+, EBV+ PTLD presented as direct admit after findings of relapsing lymphoma with bilateral pneumonia. ?? # Bilateral Pneumonia Likely a community acquired pneumonia. Injected conjunctiva possibly makes mycoplasma more likely.??Patient w/ leukocytosis to 16 and T to 38.9.??PET scan w/ RLL and IRVIN lung consolidation (pna more likely than PTLD). ??has had progressively worsening cough/SOB. on RA. - vanc 1000mg q12, cefepime 1g q8, vanc level subtherapeutic this am however patietn is clinically improving with decreasing leukocytosis -3/7 transitioned to levofloxacin 750mg qdaily - tentative plan for 1 week course total due to immunocompromised status - sputum culture, blood culture x2??NG - mucinex - will require close follow up with CT ?? # PTLD Patient of Dr. Gillespie (s/p R-CHOP x1 08/2017, DA-EPOCH-R last dose 09/2017- 12/2017, IT MTX w/ cycle III). PET scan 01/03 with multiple new hypermetabolic and slightly enlaring LN above and below diaphgragm c/w progression - s/p excision LN biopsy w/ Dr. Prado today (0800am scheduled) - IPAP assessed - BMBx??01/04 at bedside, path, flow, FISH pending - serum CMV negative, EBV PCR neg ?? # Hx of liver transplant - orthotopic Transplanted 1998 after fulminant liver failure 12/03 AI hepatitis; follows w/ Dr. Gresham. Liver bx 10/2018 suboptimal but without pathology; MRCP 12/2018 WNL (no steatosis, surface nodularity, biliary ductal dilatation) - immunosupression: tac 0.5mg BID, tac trough 6 - continue current dosing ?? # Hx of CMV Viremia - last detected 09/2018 with negative serologies 10/2018, 11/2018, 12/2018 - repeat CMV negative - cont. Valgancyclovir 450mg BID ?? PPX:??scds Access: PIV FEN/GI: regular FULL CODE ?? DISPO: home today as long as pain is controlled. Any questions, please call. Emili Tidwell [phone] Emili Tidwell MD 01/06/2019 7:16 AM Cosigned by Lamar Sherman MD at 01/07/2019 7:44 AM LITIGATION ASSOCIATE GATION ASSOCIATE GATION ASSOCIATE GATION ASSOCIATE Associated attestation - Lamar Sherman MD - 01/07/2019 7:44 AM LITIGATION ASSOCIATE The resident/fellow saw and examined the patient, we discussed their findings, and I am in agreement with the plan based on the discussion with the resident/fellow. I did not personally examine the patient since he was off the floor in the OR. * Johnathan Burrows RN - 01/05/2019 3:59 PM CST 01/05/19 [id number] Patient Information Primary Caregiver Self Support System Parent Support system contact info (name, phone, availablity) mother libia [phone] Prior Level of Functioning Durable Medical Equipment Cane (single prong) Income Information Income Source Unemployed Communications Fiduciary Responsibility Patient/Designated decision maker was informed of [facility] fiduciary relationship as necessary Chart reviewed for initial admit Patient admitted for treatment of: relapsing lymphoma with bilateral pneumonia. Information obtained from patient Insurance verified as [employer] Prescription Coverage: [employer] Admission Source: home Patient/Family agree with discharge plan Based on a comprehensive family assessment, assistance with instrumental activities of daily livingafter discharge will be provided by family Through the course of our work I determined that His family possesses the skill and ability to provide and monitor the care of the patient when he or she returns home. His family has the capacity to provide/monitor/arrange for the care of the patient. Finally, we determined that His Family has the knowledge of available resources and that combining them with their existing resources will suffice to sustain and care for the patient when he or she returns home. The treatment team is aware of thisinformation. All are in agreement with the aftercare plan. Goal Safe Discharge Plan To Continue To Follow for Discharge needs GATION ASSOCIATE GATION ASSOCIATE * Malena Junior MD - 01/05/2019 7:27 AM CST Oncology Daily Progress Note SUBJECTIVE Interval History: Yesterday patient at bone marrow biopsy at bedside requiring additional pain medications afterward.He received oxycodone 5mg x2 and morphine 1mg x2. This am he continues to have some pain at the R. Hip site. He reports improved cough. No abdominal pain. No chest pain. No fevers. Scheduled Medications: Scheduled Medications Medication Dose Route Frequency ??? cefepime (MAXIPIME) 1000 mg/10 mL in sterile water (premix) 1,000 mg 1,000 mg intravenous Q8H ??? guaiFENesin ER (MUCINEX) extended release tablet 600 mg 600 mg oral BID ??? sodium chloride 0.9% flush 0.5-20 mL 0.5-20 mL intra-catheter Q8H PIPPA ??? tacrolimus (PROGRAF) capsule 0.5 mg 0.5 mg oral BID ??? valGANciclovir (VALCYTE) tablet 450 mg 450 mg oral BID ??? vancomycin 1000 mg/200 mL in dextrose 5% (premix) 1,000 mg 1,000 mg intravenous Q12H Continuous Medications: Current Facility-Administered Medications Medication Dose Route Frequency Last Dose OBJECTIVE Vitals: Vitals: 01/04/19 0523 01/04/19 1405 01/04/19 2050 01/05/19 0430 BP: 95/60 100/53 94/54 99/54 BP Location: Right arm Right arm Right arm Patient Position: Lying Lying Pulse: 82 82 66 Resp: 14 16 16 Temp: 36.7 ??C (98.1 ??F) 36.9 ??C (98.4 ??F) 36.9 ??C (98.4 ??F) TempSrc: Oral Oral Oral SpO2: 95% 98% 96% Weight: Height: Intake/Output: I/O last 2 completed shifts: In: 510 [I.V.:510] Out: 975 [Urine:975] No intake/output data recorded. Physical Exam: Gen: No apparent distress. Resting comfortably. Cooperative. HEENT:??L eye slightly injected. No nasal discharge.??LAD palpable at R. Cervical and R. Submandibular area.?Moist mucus membranes. No exudates. No thyromegaly. Cardiac:??tachycardic, normal S1 and S2 without murmur Pulm:??Decreased breath sounds at RL base, no wheezes or crackles Abdomen:??Soft. Bowel sounds present. No tenderness or distension. Extremity: Warm. No edema. No clubbing or cyanosis. Neuro: Alert and oriented x 3. CN II-XII grossly intact. Strength 5/5 in upper and lower extremities. Sensation intact throughout to light touch Skin: No lesions, erythema, or skin changes. Bandaid at R. Hip site without surrounding erythema, exudate Psych: Mood appropriate. Appropriate insight. Labs Recent Results (from the past 24 hour(s)) Tacrolimus level trough Collection Time: 01/04/19 8:47 AM Result Value Ref Range Tacrolimus, trough 5.1 ng/mL Basic metabolic panel Collection Time: 01/04/19 8:47 AM Result Value Ref Range Sodium 138 135 - 145 mmol/L Potassium, pl 4.8 3.3 - 4.9 mmol/L Chloride 103 97 - 110 mmol/L CO2 25 22 - 32 mmol/L Anion Gap 10 2 - 15 mmol/L BUN 8 8 - 25 mg/dL Creatinine 0.75 (L) 0.80 - 1.30 mg/dL Glucose 88 70 - 199 mg/dL Calcium 9.4 8.5 - 10.3 mg/dL CBC with auto differential Collection Time: 01/04/19 8:47 AM Result Value Ref Range WBC 17.0 (H) 3.8 - 9.9 K/cumm Hgb 14.5 13.0 - 17.5 g/dL Hct 42.2 38.9 - 50.3 % Plt 437 (H) 150 - 400 K/cumm MPV 10.1 9.1 - 12.3 fL RBC 4.41 4.30 - 5.80 M/cumm MCV 95.7 81.3 - 96.4 fL MCH 32.9 27.1 - 33.3 pg MCHC 34.4 32.3 - 35.7 g/dL RDW CV 13.6 11.1 - 14.9 % RDW SD 48.4 (H) 35.7 - 48.1 fL NRBC Abs 0.00 0.00 - 0.01 K/cumm Differential, auto Collection Time: 01/04/19 8:47 AM Result Value Ref Range Neutrophil absolute 10.7 (H) 1.7 - 6.5 K/cumm Immature granulocyte absolute 0.2 (H) 0.0 - 0.1 K/cumm Lymphocytes absolute 2.5 0.8 - 3.3 K/cumm Monocyte absolute 3.4 (H) 0.2 - 0.8 K/cumm Eosinophils absolute 0.1 0.0 - 0.5 K/cumm Basophils, abs 0.1 0.0 - 0.1 K/cumm Neutrophils 62.7 % Immature granulocytes 1.5 % Lymphocytes 14.8 % Monocytes 19.9 % Eosinophils 0.6 % Basophils 0.5 % Phosphorus Collection Time: 01/04/19 8:47 AM Result Value Ref Range Phosphorus, pl 2.8 2.3 - 4.5 mg/dL Uric acid Collection Time: 01/04/19 8:47 AM Result Value Ref Range Uric acid 3.0 3.0 - 8.0 mg/dL Uric acid Collection Time: 01/05/19 4:31 AM Result Value Ref Range Uric acid 3.5 3.0 - 8.0 mg/dL Lactate dehydrogenase (LD) Collection Time: 01/05/19 4:31 AM Result Value Ref Range Lactate dehydrogenase (LDH) 232 100 - 250 Units/L Phosphorus Collection Time: 01/05/19 4:31 AM Result Value Ref Range Phosphorus, pl 3.3 2.3 - 4.5 mg/dL CBC with auto differential Collection Time: 01/05/19 4:31 AM Result Value Ref Range WBC 12.4 (H) 3.8 - 9.9 K/cumm Hgb 13.8 13.0 - 17.5 g/dL Hct 39.9 38.9 - 50.3 % Plt 411 (H) 150 - 400 K/cumm MPV 10.3 9.1 - 12.3 fL RBC 4.17 (L) 4.30 - 5.80 M/cumm MCV 95.7 81.3 - 96.4 fL MCH 33.1 27.1 - 33.3 pg MCHC 34.6 32.3 - 35.7 g/dL RDW CV 14.2 11.1 - 14.9 % RDW SD 49.6 (H) 35.7 - 48.1 fL NRBC Abs 0.00 0.00 - 0.01 K/cumm Basic metabolic panel Collection Time: 01/05/19 4:31 AM Result Value Ref Range Sodium 140 135 - 145 mmol/L Potassium, pl 4.5 3.3 - 4.9 mmol/L Chloride 104 97 - 110 mmol/L CO2 25 22 - 32 mmol/L Anion Gap 11 2 - 15 mmol/L BUN 10 8 - 25 mg/dL Creatinine 0.79 (L) 0.80 - 1.30 mg/dL Glucose 83 70 - 199 mg/dL Calcium 9.0 8.5 - 10.3 mg/dL Vancomycin, trough Please draw 30 minutes before next vancomycin dose. Collection Time: 01/05/19 4:31 AM Result Value Ref Range Vancomycin, trough 4.7 (L) 10.0 - 20.9 mcg/mL Manual Differential Collection Time: 01/05/19 4:31 AM Result Value Ref Range Differential Manual Cells Counted 117 Neutrophil absolute 8.0 (H) 1.7 - 6.5 K/cumm Immature granulocyte absolute 0.2 (H) 0.0 - 0.1 K/cumm Lymphocytes absolute 2.2 0.8 - 3.3 K/cumm Monocyte absolute 1.7 (H) 0.2 - 0.8 K/cumm Eosinophils absolute 0.2 0.0 - 0.5 K/cumm Neutrophils 65.0 % Lymphocytes 11.1 % Monocytes 13.7 % Eosinophils 1.7 % Neutrophilic metamyelocytes 0.9 (H) 0.0 - 0.0 % Promyelocyte 0.8 (H) 0.0 - 0.0 % Variant lymphs 6.8 (H) 0.0 - 0.0 % Micro 01/04 sputum culture: NG Blood culture 01/03 x2: NGTD Imaging Pet/ct Fdg Skull To Thigh Addendum Date: 01/03/2019 The Non Critical results were discussed with Dr. Yassine Santos's practitioner, Samreen Vee, by Dr. Yassine Barney M.D. on 01/03/2019 at 11:50 AM. Dictated by: Yassine Barney M.D. Electronically signed by: Usha Dias M.D. Result Date: 01/03/2019 1. Multiple new hypermetabolic and slightly enlarging lymph nodes above and below the diaphragm (bilateral cervical, axillary, mediastinal, mesenteric, retroperitoneal, and left inguinal), consistentwith progression of disease. 5PS = 5. 2. [...] axial and proximal appendicular skeleton, which may re present marrow involvement versus marrow hyperplasia. Recommend correlation with marrow biopsy. Dictated by: Yassine Barney M.D. Electronically signed by: Usha Dias M.D. Assessment and Plan of Care 23 yo WM w/ PMH liver txp, ??C-myc+, EBV+ PTLD presented as direct admit after findings of relapsing lymphoma with bilateral pneumonia. ?? # Bilateral Pneumonia Likely a community acquired pneumonia. Injected conjunctiva possibly makes mycoplasma more likely. Patient w/ leukocytosis to 16 and T to 38.9.??PET scan w/ RLL and IRVIN lung consolidation (pna more likely than PTLD). ??has had progressively worsening cough/SOB. on RA. - vanc 1000mg q12, cefepime 1g q8, vanc level subtherapeutic this am however patietn is clinically improving with decreasing leukocytosis - EKG today then transition to levofloxacin 750mg qdaily - tentative plan for 1 week course total due to immunocompromised status - sputum culture, blood culture x2 NG - mucinex - will require close follow up with CT ?? # PTLD Patient of Dr. Gillespie (s/p R-CHOP x1 08/2017, DA-EPOCH-R last dose 09/2017- 12/2017, IT MTX w/ cycle III). PET scan 01/03 with multiple new hypermetabolic and slightly enlaring LN above and below diaphgragm c/w progression - plan for excision LN biopsy w/ Dr. Prado Wednesday (0800am scheduled), NPO at midnight - IPAP assessed - BMBx 01/04 at bedside, path, flow, FISH pending - serum CMV negative, EBV PCR??pending ?? 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 Gresham. 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 Valgancyclovir 450mg BID ?? PPX: scds Access: PIV FEN/GI: regular FULL CODE - confirmed at admission by myself DISPO: home tomorrow pm after LN Bx Malena Junior MD PGY2 Cosigned by Lamar Sherman MD at 01/05/2019 3:49 PM LITIGATION ASSOCIATE GATION ASSOCIATE GATION ASSOCIATE GATION ASSOCIATE Associated attestation - Lamar Sherman MD - 01/05/2019 3:49 PM LITIGATION ASSOCIATE I have seen and examined the patient on 01/05/19. I agree with the findings and plan of care as documented in the resident's/fellow's note and as discussed with the resident/fellow.. * Malena Junior MD - 01/04/2019 1:40 PM CST Oncology Daily Progress Note SUBJECTIVE Interval History: NAEO. Patient without complaints this am. He did not feel febrile. He was able to cough for sputum production. No longer febrile. No pain. No complaints. Scheduled Medications: Scheduled Medications Medication Dose Route Frequency ??? cefepime (MAXIPIME) 1000 mg/10 mL in sterile water (premix) 1,000 mg 1,000 mg intravenous Q8H ??? guaiFENesin ER (MUCINEX) extended release tablet 600 mg 600 mg oral BID ??? HYDROmorphone (DILAUDID) injection 1 mg 1 mg intravenous Once ??? sodium chloride 0.9% flush 0.5-20 mL 0.5-20 mL intra-catheter Q8H PIPPA ??? tacrolimus (PROGRAF) capsule 0.5 mg 0.5 mg oral BID ??? valGANciclovir (VALCYTE) tablet 450 mg 450 mg oral BID ??? vancomycin 1000 mg/200 mL in dextrose 5% (premix) 1,000 mg 1,000 mg intravenous Q12H Continuous Medications: Current Facility-Administered Medications Medication Dose Route Frequency Last Dose OBJECTIVE Vitals: Vitals: 01/03/19 1720 01/03/19200901/04/19 0515 01/04/19 0523 BP: 109/60 98/49 95/60 BP Location: Right arm Patient Position: Lying Lying Pulse: 88 82 Resp: 16 16 Temp: 37.3 ??C (99.1 ??F) 37.2 ??C (98.96 ??F) 37 ??C (98.6 ??F) TempSrc: Oral Oral SpO2: 96% 94% Weight: Height: Intake/Output: I/O last 2 completed shifts: In: 1998 [P.O.:400; I.V.:1189; IV Piggyback:410] Out: 1399 [Urine:1400] No intake/output data recorded. Physical Exam: Gen: No apparent distress. Resting comfortably. Cooperative. HEENT: L eye slightly injected. No nasal discharge. LAD palpable at R. Cervical and R. Submandibular area. Moist mucus membranes. No exudates. No thyromegaly. Cardiac: tachycardic, normal S1 and S2 without murmur Pulm: Decreased breath sounds at RL base, no wheezes or crackles Abdomen: Large vida scar. Soft. Bowel sounds present. No tenderness or distension. Extremity: Warm. No edema. No clubbing or cyanosis. Neuro: Alert and orientedx3. CN II-XII grossly intact. Strength 5/5 in upper and lower extremities.Sensation intact throughout to light touch Skin: No lesions, erythema, or skin changes. Psych: Mood appropriate. Appropriate insight. ?? Labs Recent Results (from the past 24 hour(s)) Comprehensive metabolic panel Collection Time: 01/03/19 4:27 PM Result Value Ref Range Sodium 135 135 - 145 mmol/L Potassium, pl 3.8 3.3 - 4.9 mmol/L Chloride 101 97 - 110 mmol/L CO2 23 22 - 32 mmol/L Anion Gap 11 2 - 15 mmol/L BUN 10 8 - 25 mg/dL Creatinine 0.73 (L) 0.80 - 1.30 mg/dL Glucose 108 70 - 199 mg/dL Calcium 8.6 8.5 - 10.3 mg/dL Bilirubin, total 0.8 0.1 - 1.2 mg/dL Protein, pl 5.9 (L) 6.5 - 8.5 g/dL Albumin 3.6 3.5 - 5.0 g/dL Alk phos 334 (H) 40 - 130 Units/L ALT 59 (H) 7 - 55 Units/L AST 31 10 - 50 Units/L Magnesium Collection Time: 01/03/19 4:27 PM Result Value Ref Range Magnesium 1.6 1.4 - 2.5 mg/dL Protime-INR Collection Time: 01/03/19 4:27 PM Result Value Ref Range PT 12.9 8.5 - 13.0 sec INR 1.20 0.80 - 1.21 aPTT Collection Time: 01/03/19 4:27 PM Result Value Ref Range aPTT 28.8 25.0 - 37.0 sec CBC with auto differential Collection Time: 01/03/19 4:27 PM Result Value Ref Range WBC 16.3 (H) 3.8 - 9.9 K/cumm Hgb 13.2 13.0 - 17.5 g/dL Hct 37.3 (L) 38.9 - 50.3 % Plt 400 150 - 400 K/cumm MPV 10.1 9.1 - 12.3 fL RBC 3.94 (L) 4.30 - 5.80 M/cumm MCV 94.7 81.3 - 96.4 fL MCH 33.5 (H) 27.1 - 33.3 pg MCHC 35.4 32.3 - 35.7 g/dL RDW CV 13.7 11.1 - 14.9 % RDW SD 47.6 35.7 - 48.1 fL NRBC Abs 0.00 0.00 - 0.01 K/cumm Blood culture Blood Collection Time: 01/03/19 4:27 PM Result Value Ref Range Report Preliminary Report: No growth to date. Blood culture Blood Collection Time: 01/03/19 4:27 PM Result Value Ref Range Report Preliminary Report: No growth to date. Differential, auto Collection Time: 01/03/19 4:27 PM Result Value Ref Range Neutrophil absolute 8.7 (H) 1.7 - 6.5 K/cumm Immature granulocyte absolute 0.6 (H) 0.0 - 0.1 K/cumm Lymphocytes absolute 3.4 (H) 0.8 - 3.3 K/cumm Monocyte absolute 3.4 (H) 0.2 - 0.8 K/cumm Eosinophils absolute 0.1 0.0 - 0.5 K/cumm Basophils, abs 0.1 0.0 - 0.1 K/cumm Neutrophils 53.5 % Immature granulocytes 3.7 % Lymphocytes 20.8 % Monocytes 21.1 % Eosinophils 0.5 % Basophils 0.4 % HIV 1/2 Antibody plus p24 Antigen Collection Time: 01/03/19 4:27 PM Result Value Ref Range HIV 1/2 Ab + p24 Ag Nonreactive Nonreactive Aerobic culture and gram stain Sputum Lung Collection Time: 01/04/19 2:51 AM Result Value Ref Range Direct Specimen Exam Stain: Few squamous epithelial cells seen. Abundant polymorphonuclear leukocytes seen. Moderate Mixed bacterial bret seen on gram stain. Tacrolimus level trough Collection Time: 01/04/19 8:47 AM Result Value Ref Range Tacrolimus, trough 5.1 ng/mL Basic metabolic panel Collection Time: 01/04/19 8:47 AM Result Value Ref Range Sodium 138 135 - 145 mmol/L Potassium, pl 4.8 3.3 - 4.9 mmol/L Chloride 103 97 - 110 mmol/L CO2 25 22 - 32 mmol/L Anion Gap 10 2 - 15 mmol/L BUN 8 8 - 25 mg/dL Creatinine 0.75 (L) 0.80 - 1.30 mg/dL Glucose 88 70 - 199 mg/dL Calcium 9.4 8.5 - 10.3 mg/dL CBC with auto differential Collection Time: 01/04/19 8:47 AM Result Value Ref Range WBC 17.0 (H) 3.8 - 9.9 K/cumm Hgb 14.5 13.0 - 17.5 g/dL Hct 42.2 38.9 - 50.3 % Plt 437 (H) 150 - 400 K/cumm MPV 10.1 9.1 - 12.3 fL RBC 4.41 4.30 - 5.80 M/cumm MCV 95.7 81.3 - 96.4 fL MCH 32.9 27.1 - 33.3 pg MCHC 34.4 32.3 - 35.7 g/dL RDW CV 13.6 11.1 - 14.9 % RDW SD 48.4 (H) 35.7 - 48.1 fL NRBC Abs 0.00 0.00 - 0.01 K/cumm Differential, auto Collection Time: 01/04/19 8:47 AM Result Value Ref Range Neutrophil absolute 10.7 (H) 1.7 - 6.5 K/cumm Immature granulocyte absolute 0.2 (H) 0.0 - 0.1 K/cumm Lymphocytes absolute 2.5 0.8 - 3.3 K/cumm Monocyte absolute 3.4 (H) 0.2 - 0.8 K/cumm Eosinophils absolute 0.1 0.0 - 0.5 K/cumm Basophils, abs 0.1 0.0 - 0.1 K/cumm Neutrophils 62.7 % Immature granulocytes 1.5 % Lymphocytes 14.8 % Monocytes 19.9 % Eosinophils 0.6 % Basophils 0.5 % Phosphorus Collection Time: 01/04/19 8:47 AM Result Value Ref Range Phosphorus, pl 2.8 2.3 - 4.5 mg/dL Uric acid Collection Time: 01/04/19 8:47 AM Result Value Ref Range Uric acid 3.0 3.0 - 8.0 mg/dL Micro 3/ BCx x2: NGTD 3/ sputum culture: few squamous epithelial cells; abundant PMN leukocytes, moderate mixed bacterial bret Imaging Pet/ct Fdg Skull To Thigh Addendum Date: 01/03/2019 The Non Critical results were discussed with Dr. Yassine Santos's practitioner, Samreen Vee, by Dr. Yassine Barney M.D. on 01/03/2019 at 11:50 AM. Dictated by: Yassine Barney M.D. Electronically signed by: Usha Dias M.D. Result Date: 01/03/2019 1. Multiple new hypermetabolic and slightly enlarging lymph nodes above and below the diaphragm (bilateral cervical, axillary, mediastinal, mesenteric, retroperitoneal, and left inguinal), consistentwith progression of disease. 5PS = 5. 2. [...] axial and proximal appendicular skeleton, which may re present marrow involvement versus marrow hyperplasia. Recommend correlation with marrow biopsy. Dictated by: Yassine Barney M.D. Electronically signed by: Usha Dias M.D. Assessment and Plan of Care 23 yo WM w/ PMH liver txp, C-myc+, EBV+ PTLD presented as direct admit after findings of relapsing lymphoma with bilateral pneumonia. ?? # Bilateral Pneumonia Likely a community acquired pneumonia. Injected conjunctiva possibly makes mycoplasma more likely. Patient w/ leukocytosis to 16 and T to 38.9. PET scan w/ RLL and IRVIN lung consolidation (pna more likely than PTLD). has had progressively worsening cough/SOB. on RA. - vanc 1000mg q12, cefepime 1g q8, level tomorrow am - sputum culture, blood culture x2 NG - mucinex, IVF PRN - will require close follow up with CT ?? # PTLD Patient of Dr. Gillespie (s/p R-CHOP x1 08/2017, DA-EPOCH-R last dose 09/2017- 12/2017, IT MTX w/ cycle III). PET scan 01/03 with multiple new hypermetabolic and slightly enlaring LN above and below diaphgragm c/w progression - plan for excision LN biopsy w/ Dr. Prado Wednesday am (0950am scheduled), NPO at midnight for tomorrow - IPAP to see 01/04 - BMBx today with [facility], studies sent - serum CMV, EBV PCR pending ?? 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 Gresham. Liver bx 10/2018 suboptimal but without pathology; MRCP 12/2018 WNL (no steatosis, surface nodularity, biliary ductal dilatation) - immunosupression: tac 0.5mg BID, tac level 6; transplant pharmacy to follow - will t/b w/ hepatology ?? 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 Valgancyclovir 450mg BID ?? PPX: scds Access: PIV FEN/GI: regular FULL CODE - confirmed at admission by myself ?? Malena Junior MD PGY2 Cosigned by Lamar Sherman MD at 01/04/2019 4:22 PM LITIGATION ASSOCIATE GATION ASSOCIATE GATION ASSOCIATE Associated attestation - Lamar Sherman MD - 01/04/2019 4:22 PM LITIGATION ASSOCIATE I have seen and examined the patient on 01/04/19. I agree with the findings and plan of care as documented in the resident's/fellow's note and as discussed with the resident/fellow.. documented in this encounter H&P Notes * Malena Junior MD - 01/03/2019 6:23 PM CST MEDICAL ONCOLOGY HISTORY AND PHYSICAL Patient: Beka Nichols Room: [id number] Date: 01/03/2019 SUBJECTIVE CHIEF COMPLAINT cough HISTORY OF PRESENT ILLNESS 23 yo WM w/ PMH liver txp, C-myc+, EBV+ PTLD presented as direct admit after findings of relapsing lymphoma with bilateral pneumonia. The patient reports that he has had a cough for the last three months which has been worsening. He denies fevers, sweats, night sweats, or chills. He has been increasingly fatigued resulting in sleeping all day the Wednesday prior to admission. He denies abdominal pain, diarrhea, nausea, or vomiting. No rhinorrhea, congestion, sneezing or sick contacts. At the meantime, he has noticed increasing lymphadenopathy. He as last seen at his oncologist's Dr. Gillespie's on 12/28. At that visit, the discussion of increased lymphadenopathy provoked an outpatient workup for relapsed disease. He underwent PET scan today which was notable for Low the diaphragm consistent with progression. This study was also s/f new right lower lobe and Left upper lobe consolidation (more likely pneumonia than PTLD) as well as increased uptake of the bone marrow. Vital signs were notable for a temperature to 38.7 as well as tachycardia. PAST MEDICAL HISTORY PAST SURGICAL HISTORY # c-myc+, EBV+ PTLD - follows w/ Dr. Gillespie. 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 tacrolimus (PROGRAF) 0.5 mg capsule Take 1 capsule (0.5 mg total) by mouth 2 (two) times a day.180 capsule 3 Taking ??? valGANciclovir (VALCYTE) 450 mg tablet Take 1 tablet (450 mg total) by mouth 2 (two) times a day. 60 tablet 1 Taking CURRENT MEDICATIONS Scheduled Meds: Scheduled Meds: cefepime 1,000 mg intravenous Q8H enoxaparin 40 mg subcutaneous Daily-2100 guaiFENesin ER 600 mg oral BID sodium chloride 0.9% 0.5-20 mL intra-catheter Q8H PIPPA tacrolimus 0.5 mg oral BID valGANciclovir 450 mg oral BID vancomycin 1,000 mg intravenous Q12H Continuous Infusions: PRN Meds:.??? acetaminophen ??? sodium chloride 0.9% REVIEW OF SYSTEMS 12 system review of systems performed. All negative except those listed in HPI. OBJECTIVE PHYSICAL EXAMINATION Vitals: 01/03/19 1720 BP: Pulse: Resp: Temp: 37.3 ??C (99.1 ??F) SpO2: Wt Readings from Last 3 Encounters: 01/03/19 54.4 kg (120 lb) 01/03/19 59 kg (130 lb) 12/28/18 58.8 kg (129 lb 9.6 oz) Gen: No apparent distress. Resting comfortably. Cooperative. HEENT: L eye slightly injected. No nasal discharge. LAD palpable at R. Cervical and R. Submandibular area. Moist mucus membranes. No exudates. No thyromegaly. Cardiac: tachycardic, normal S1 and S2 without murmur Pulm: Decreased breath sounds at RL base, no wheezes or crackles Abdomen: Large vida scar. Soft. Bowel sounds present. No tenderness or distension. Extremity: Warm. No edema. No clubbing or cyanosis. Neuro: Alert and orientedx3. CN II-XII grossly intact. Strength 5/5 in upper and lower extremities.Sensation intact throughout to light touch Skin: No lesions, erythema, or skin changes. Psych: Mood appropriate. Appropriate insight. INTAKE/OUTPUT DATA Intake/Output Summary (Last 24 hours) at 01/03/2019 1823 Last data filed at 01/03/2019 1712 Gross per 24 hour Intake 10 ml Output -- Net 10 ml REVIEW OF LABORATORY DATA I have reviewed the following: Lab Results Component Value Date WBC 16.3 (H) 01/03/2019 HGB 13.2 01/03/2019 HCT 37.3 (L) 01/03/2019 MCV 94.7 01/03/2019 LABPLAT 400 01/03/2019 Lab Results Component Value Date GLUCOSE 108 01/03/2019 CALCIUM 8.6 01/03/2019 SODIUM 135 01/03/2019 POTASSIUM 3.8 01/03/2019 CO2 23 01/03/2019 CHLORIDE 101 01/03/2019 BUNSER 10 01/03/2019 CREATININE 0.73 (L) 01/03/2019 Lab Results Component Value Date ALT 59 (H) 01/03/2019 AST 31 01/03/2019 ALKPHOS 334 (H) 01/03/2019 BILITOT 0.8 01/03/2019 Lab Results Component Value Date IRON 16 (L) 04/04/2017 TIBC 202 (L) 04/04/2017 FERRITIN 366 04/04/2017 Lab Results Component Value Date INR 1.20 01/03/2019 No results found for: HGBA1C No results found for: TSH, U2RNYNV, F1OAILS, THYROIDAB Lab Results Component Value Date SPECGRAVU 1.010 12/17/2017 BLOODUR Negative 12/17/2017 LEUKESTUR Negative 12/17/2017 No results found for: CKTOTAL, CKMB, CKMBINDEX, TROPONINI Lab Results Component Value Date CHOL 92 04/03/2017 Lab Results Component Value Date HDL 18 (L) 04/03/2017 Lab Results Component Value Date LDLCALC 57 04/03/2017 Lab Results Component Value Date TRIG 83 04/03/2017 No components found for: 25OHVITD ASSESSMENT & PLAN 23 yo WM w/ PMH liver txp, C-myc+, EBV+ PTLD presented as direct admit after findings of relapsing lymphoma with bilateral pneumonia. # Bilateral Pneumonia Patient w/ leukocytosis to 16 and T to 38.9. PET scan w/ RLL and IRVIN lung consolidation (pna more likely than PTLD). has had progressively worsening cough/SOB. on RA. - vanc 1000mg q12, cefepime 1g q8 - sputum culture, blood culture x2 - mucinex, IVF PRN - will require close follow up with CT # PTLD Patient of Dr. Gillespie (s/p R-CHOP x1 08/2017, DA-EPOCH-R last dose 09/2017- 12/2017, IT MTX w/ cycle III). PET scan 01/03 with multiple new hypermetabolic and slightly enlaring LN above and below diaphgragm c/w progression - plan for excision LN biopsy w/ Dr. Prado Wednesday am - IPAP to see 01/04 - BMBx w/ lymphoma studies, coordinate with OR time? 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 Gresham. 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 Valgancyclovir 450mg BID PPX: lovenox Access: PIV FEN/GI: regular, NPO at midnight FULL CODE - confirmed at admission by myself Malena Junior MD [phone] Cosigned by Lamar Sherman MD at 01/04/2019 2:06 PM LITIGATION ASSOCIATE GATION ASSOCIATE GATION ASSOCIATE Associated attestation - Lamar Sherman MD - 01/04/2019 2:06 PM LITIGATION ASSOCIATE I have seen and examined the patient on 01/04/19. I agree with the findings and plan of care as documented in the resident's/fellow's note and as discussed with the resident/fellow.. documented in this encounter Procedure Notes * Fabi Kelsey NP - 01/04/2019 4:53 PM CSTAssociated Order(s): Bone Marrow Biopsy Post-Procedure Diagnose(s): High grade B-cell lymphoma (HCC) Bone Marrow Biopsy Date/Time: 01/04/2019 11:00 AM Performed by: Fabi Kelsey NP Authorized by: Fabi Kelsey NP [place] Protocol: RN Notified of Procedure: yes Informed [...] be done; and correct patient positioning Anesthesia (see MAR for exact dosage) Anesthesia method: Local infiltration Local anesthetic: Lidocaine 2% Hand hygiene performed: Yes PPE (including eye protection) in place as appropriate to the procedure: Yes Preparation: Patient was prepped using appropriate disinfectant and draped using sterile technique as needed Procedure details: Obtained one core specimen and 2 green tube aspirates and 2 pink tube aspirates Patient tolerance: Patient tolerated the procedure well with no immediate complications Post Procedure Debrief: All guidewires, needles, sponges or other items are accounted for: yes Any special post procedure monitoring, testing or other considerations: yes (enter/request order) All specimens identified, labeled and matched to patient identification: yes Responsible green party for transporting specimen(s) to lab determined: yes GATION ASSOCIATE documented in this encounter Consult Notes * Nina Roach, RD - 01/04/2019 12:27 PM CSTAssociated Order(s): IP CONSULT TO NUTRITION SERVICES Nutrition Assessment Reason for Assessment: Consult/Referral Encounter Date: 01/04/19 12:27 PM Patient is a 23 y.o. male with chief complaint of bilateral pneumonia. LOS is 1 days. HPI: Pt with history of liver transplant and EBV+ PTLD who presented with concern for relapsed lymphoma and bilateral pneumonia. PET scan on 01/03 with multiple new hypermetabolic and slightly enlarging LN above and below diaphragm c/w progression. Noted plans for lymph node biopsy today. PMH: -Orthotopic liver transplant in 12/03 AIH -EBV+ PTLD- s/p R-CHOP 08/2017, DA-EPOCH-R 09/2017-12/2017 and IT MTX -CMV viremia Objective Past Medical History: Diagnosis Date ??? CMV [...] ??? US GUIDED BIOPSY LIVER N/A 10/18/2018 Social History Tobacco Use ??? Smoking status: Never Smoker ??? Smokeless tobacco: Never Used Substance Use Topics ??? Alcohol use: Not on file Family History Problem Relation Age of Onset ??? Rectal cancer Mother Rectal cancer - (Added by TW Conv) ??? Diabetes type II Sister Family history of type 2 diabetes mellitus - (Added by TW Conv) ??? Anesthesia problems Other Anthropometrics: Wt Readings from Last 3 Encounters: 01/03/19 54.4 kg (120 lb) 01/03/19 59 kg (130 lb) 12/28/18 58.8 kg (129 lb 9.6 oz) Anthropometrics Weight: 54.4 kg (120 lb) Admission Weight : 54.4 kg Weight Change: -4.53 kg (-10.00 lbs) IBW/kg (Calculated) : 69.9 kg Height: 172.7 cm (5' 8 ) Weight in (lb) to have BMI = 25: 164.1 BMI (Calculated): 18.3 Nutrition Needs Calculations: Calculated Energy Needs Using Equations Weight: 54.4 kg (120 lb) Height: 172.7 cm (5' 8 ) Temp: 37 ??C (98.6 ??F) Vital Signs: BP: 95/60 Temp: 37 ??C (98.6 ??F) Pulse: 82 Resp: 16 SpO2: 94 % Medications: Scheduled Meds: cefepime 1,000 mg intravenous Q8H guaiFENesin ER 600 mg oral BID heparin flush (porcine) 5 mL IV flush Once HYDROmorphone lidocaine 15 mL subcutaneous Once sodium chloride 0.9% 0.5-20 mL intra-catheter Q8H PIPPA tacrolimus 0.5 mg oral BID valGANciclovir 450 mg oral BID vancomycin 1,000 mg intravenous Q12H Continuous Infusions: PRN Meds: ??? acetaminophen ??? polyvinyl alcohol-povidone ??? sodium chloride 0.9% Lab Review: Sodium Date Value Ref Range Status 01/04/2019 138 135 - 145 mmol/L Final Potassium, pl Date Value Ref Range Status 01/04/2019 4.8 3.3 - 4.9 mmol/L Final Comment: Hemolyzed; (++); potassium value may be falsely elevated by as much as 0.3 - 0.5 mmol/L. Suggest redraw and reanalysis. BUN Date Value Ref Range Status 01/04/2019 8 8 - 25 mg/dL Final Creatinine Date Value Ref Range Status 01/04/2019 0.75 (L) 0.80 - 1.30 mg/dL Final Phosphorus, pl Date Value Ref Range Status 01/04/2019 2.8 2.3 - 4.5 mg/dL Final Albumin Date Value Ref Range Status 01/03/2019 3.6 3.5 - 5.0 g/dL Final Magnesium Date Value Ref Range Status 01/03/2019 1.6 1.4 - 2.5 mg/dL Final Calcium Date Value Ref Range Status 01/04/2019 9.4 8.5 - 10.3 mg/dL Final ALT Date Value Ref Range Status 01/03/2019 59 (H) 7 - 55 Units/L Final AST Date Value Ref Range Status 01/03/2019 31 10 - 50 Units/L Final Alk phos Date Value Ref Range Status 01/03/2019 334 (H) 40 - 130 Units/L Final No results found for: HGBA1C Nursing Assessment: Intake/Output Summary (Last 24 hours) at 01/04/2019 1227 Last data filed at 01/04/2019 0629 Gross per 24 hour Intake 1999 ml Output 1400 ml Net 599 ml Gastrointestinal Gastrointestinal (WDL): Within Defined Limits Jerod Scale Score: 21 Oral Mucosa Grade: Normal (0) Dietary Orders (From admission, onward) Start Ordered 01/06/19 0001 NPO Diet Sips with meds, Ice chips Diet effective midnight Question Answer Comment NPO except: Sips with meds NPO except: Ice chips 01/04/19 1138 01/04/19 0737 Adult Diet Regular Diet effective now Question: ([facility]) Diet type Answer: Regular 01/04/19 0736 Nutrition Screen What diet do you follow at home?: regular Have You Recently Lost Weight Without Trying?: No Poor Oral Intake for Four or More Days Prior to Admission: No Impression: Pt stated that his appetite has been stable and he was eating well at home. Pt denied any nausea, vomiting, diarrhea, constipation, or trouble chewing/swallowing. Pt states that his weight has been stable around 125-130lb. Noted pt is underweight with BMI of 18.25. Current weight is 120lb, however per flowsheets pt also weighed 130lb yesterday 01/03. Pt does not meet criteria for malnutrition at this time per ASPEN guidelines, however is at risk d/t low BMI of 18.25 and possible future initiation of chemotherapy. Wt Readings from Last 3 Encounters: 01/03/19 54.4 kg (120 lb) 01/03/19 59 kg (130 lb) 12/28/18 58.8 kg (129 lb 9.6 oz) NUTRITION DIAGNOSIS Nutrition Diagnosis 1: Underweight Related to: Increased needs Evidenced by: BMI 17-18.4 INTERVENTION Encouraged good oral intakes as tolerated. Reviewed Dining Glue Cook and nutrition supplements available, if needed. Pt stated no nutritional needs at this time. RD will continue to follow plan of careand provide additional nutrition interventions as appropriate. GOALS / MONITORING: Goals: Adequate nutrition to meet estimated needs by next assessment Interventions: Encouragement, [place] diet preferences within the limits of nutrition care order Monitoring and Evaluation: Plan of care, PO intake, Weight changes, Appetite Nina Roach RDN, LD GATION ASSOCIATE documented in this encounter Miscellaneous Notes * Plan of Care - Johnathan Burrows RN - 01/06/2019 5:45 PM CST Based on a comprehensive family assessment, assistance with instrumental activities of daily livingafter discharge will be provided by family Through the course of our work I determined that His familypossesses the skill and ability to provide and monitor the care of the patient when he or she returns home. His family has the capacity to provide/monitor/arrange for the care of the patient. Finally, we determined that His family has the knowledge of available resources and that combining them with their existing resources will suffice to sustain and care for the patient when he or she returns home. The treatment team is aware of this information. All are in agreement with the aftercare plan. To Possible Discharge Home With Support And Transportation From Family. GATION ASSOCIATE * Plan of Care - Simin Crespo RN - 01/06/2019 3:00 PM CST Problem: Health Behavior: Goal: Understanding of discharge needs will improve Outcome: Progressing Problem: Lack of Knowledge: Goal: Knowledge of disease or condition will improve Outcome: Progressing Problem: Physical Regulation: Goal: Ability to demonstrate capillary refill time of less than 2 seconds will improve Outcome: Progressing Goal: Color and temperature of extremities will improve Outcome: Progressing Goal: Diagnostic test results will improve Outcome: Progressing Goal: Ability to maintain a body temperature in the normal range will improve Outcome: Progressing Problem: Safety: Goal: Will remain free from falls Outcome: Progressing Goal: Will remain free from injury from falls Outcome: Progressing Goal: Will remain free from falls and injury in home environment Outcome: Progressing Problem: Lack of Knowledge: Goal: Complications related to the disease process, condition or treatment will be avoided or minimized Outcome: Progressing Problem: Activity: Goal: Mobility will [...] improve to fullest extent possible Outcome: Progressing GATION ASSOCIATE * Medical Student - Zohra Poefabiola - 01/06/2019 9:38 AM CST Oncology Progress Note Chief Complaint: Persistent cough Mr. 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 Head's outpatient clinic for relapse with??persistent cough Subjective Pain after lymph node excision biopsy Came back from OR with TATI drain Active Treatment & Therapy Plans for Beka Nichols Justin J does not have any active plans of the following types: Oncology Chemotherapy Treatment, Oncology Treatment (2), Oncology Treatment (3), Oncology Supportive Care, Specialty Infusion Treatment, Blood Products, BMT, Hematology No Known Allergies Current Facility-Administered Medications: ??? [DEC Hold] acetaminophen (TYLENOL) tablet 650 mg, 650 mg, oral, Q8H PRN, Malena Junior MD ??? [DEC Hold] guaiFENesin ER (MUCINEX) extended release tablet 600 mg, 600 mg, oral, BID, Malena Junior MD, 600 mg at 01/05/192056 ??? [MAR Hold] levoFLOXacin (LEVAQUIN) tablet 750 mg, 750 mg, oral, Daily - 0600, Malena Junior MD, 750 mg at 01/06/19 0620 ??? lidocaine-EPINEPHrine (XYLOCAINE with EPI) 1 %-1:100,000 injection, , , PRN, Bebe Valdes MD, 6 mL at 01/06/19 0813 ??? [MAR Hold] ondansetron (ZOFRAN) injection 4 mg, 4 mg, intravenous, Q8H PRN, Malena Junior MD,4 mg at 01/04/19 170 ??? [MAR Hold] oxyCODONE (ROXICODONE) tablet 5 mg, 5 mg, oral, QID PRN, Malena Junior MD, 5 mg at01/05/192057 ??? [MAR Hold] polyvinyl alcohol-povidone (REFRESH CLASSIC) 1.4-0.6 % ophthalmic solution 1 drop, 1drop, each eye, TID PRN, Malena Junior MD, 1 drop at 01/03/192005 ??? sodium chloride 0.9 % irrigation, , , PRN, Bebe Valdes MD, 1,000 mL at 01/06/19 0701 ??? [MAR Hold] sodium chloride 0.9% flush 0.5-20 mL, 0.5-20 mL, intra-catheter, Q8H PIPPA, Malena Junior MD, 10 mL at 01/06/19 0621 ??? [MAR Hold] sodium chloride 0.9% flush 0.5-20 mL, 0.5-20 mL, intra-catheter, PRN, Malena Junior MD ??? [MAR Hold] tacrolimus (PROGRAF) capsule 0.5 mg, 0.5 mg, oral, BID, Malena Junior MD, 0.5 mg at 01/05/192056 ??? [MAR Hold] valGANciclovir (VALCYTE) tablet 450 mg, 450 mg, oral, BID, Malena Junior MD, 450 mg at 01/05/192057 Facility-Administered Medications Ordered in Other Encounters: ??? albuterol HFA (PROVENTIL HFA,VENTOLIN HFA,PROAIR HFA) 90 mcg/actuation inhaler, , inhalation, PRN, Moni Hernandez CRNA, 8 puff at 01/06/19914 ??? ceFAZolin (ANCEF) injection, , intravenous, PRN, Moni Hernandez CRNA, 2,000 mg at ??? fentaNYL (SUBLIMAZE) preservative free injection, , intravenous, PRN, Moni Hernandez CRNA,50 mcg at 01/06/19929 ??? Lactated Ringer's (LR) infusion, , , Continuous PRN, Moni Hernandez CRNA, Stopped at 01/06/19912 ??? lidocaine PF (XYLOCAINE) 10 mg/mL (1 %) preservative free injection, , , PRN, Moni Hernandez CRNA, 40 mg at 01/06/19799 ??? phenylephrine (KOBE-SYNEPHRINE) 0.5 mg/5 mL (100 mcg/mL) premix syringe in 0.9% sodium chloride,, intravenous, PRN, Moni Hernandez CRNA, 100 mcg at 01/06/1929 ??? propofol (DIPRIVAN) IV, , intravenous, PRN, Moni Hernandez CRNA, 20 mg at 01/06/19 0844 ??? propofol (DIPRIVAN) IV, , intravenous, Continuous PRN, Moni Hernandez CRNA, Stopped at 01/06/19 0842 ??? sodium chloride 0.9% infusion, , , Continuous PRN, Moni Hernandez CRNA ??? succinylcholine (ANECTINE) injection, , , PRN, Moni Hernandez CRNA, 60 mg at 01/06/19 08 Review of Systems: Review of systems per HPI and otherwise all systems are negative Objective Vitals: 24hr Min/Max: Temp Min: 36.8 ??C (98.2 ??F) Max: 36.9 ??C (98.4 ??F) Pulse Min: 74 Max: 106 BP Min: 95/47 Max: 120/70 Resp Min: 14 Max: 24 SpO2 Min: 95 % Max: 98 % Most Recent : Vitals: 01/06/19 0725 BP: BP Location: Patient Position: Pulse: 80 Resp: 23 Temp: TempSrc: SpO2: 95% Weight: I/O last 2 completed shifts: In: - Out: 1125 [Urine:1125] Physical Exam: No exam performed today CBC: Recent Labs Lab Units 01/06/19 0455 WBC K/cumm 12.8* HEMOGLOBIN g/dL 13.9 HEMATOCRIT % 39.6 MCV fL 94.1 PLATELETS K/cumm 410* NEUTROS ABS K/cumm 7.4* CMP: Recent Labs Lab Units 01/06/19 0455 01/03/19 1627 SODIUM mmol/L 138 < > 135 POTASSIUM PLASMA mmol/L 4.9 < > 3.8 CO2 mmol/L 25 < > 23 BUN SERUM mg/dL 8 < > 10 GLUCOSE mg/dL 87 < > 108 CREATININE mg/dL 0.74* < > 0.73* CALCIUM mg/dL 8.9 < > 8.6 CHLORIDE mmol/L 106 < > 101 ALBUMIN g/dL -- -- 3.6 AST Units/L -- -- 31 ALT Units/L -- -- 59* ALK PHOS Units/L -- -- 334* BILIRUBIN TOTAL mg/dL -- -- 0.8 TOTAL PROTEIN g/dL -- -- 5.9* ANIONGAP mmol/L 7 < > 11 < > = values in this interval not displayed. PT: Recent Labs Lab Units 01/05/19 1554 PROTIME (PT) sec 11.8 PTT: Recent Labs Lab Units 01/05/19 1554 APTT sec 31.7 Imaging PET/ CT (01/03/19) 1. ??Multiple new hypermetabolic and slightly enlarging lymph nodes above and below the diaphragm (bilateral cervical, axillary, mediastinal, mesenteric, retroperitoneal, and left inguinal), consistent with progression of disease. 2. ??New right lower lobe and left upper lobe lung consolidations. Findings most likely represent pneumonia rather than pulmonary PTLD. 3. ??Diffusely increased activity throughout bone medullary cavities the axial and proximal appendicular skeleton, which may represent marrow involvement versus marrow hyperplasia. Recommend correlation with marrow biopsy. ?? CT Neck Soft Tissue (12/28/18) 1. ??New diffuse cervical and supraclavicular lymphadenopathy in this patient with known PTLD 2. ??Severe, worsened chronic sinusitis without evidence of extrasinus disease Assessment/Plan Mr. 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 Head's outpatient clinic for relapse with??persistent cough. ?? # Bilateral penumonia > PET/ CT (01/03/19): New right lower lobe and left upper lobe lung consolidations > immunocompromised s/p liver transplant > On admission, leukocytosis to 16.3, febrile 38.9 3pm - WBC improved to 12.8 today - blood culture, sputum culture: NGTD - d/c cefepime 1g q8h and vancomycin 1g q12h (01/03-) - switch to levaquin 750 mg daily (01/05-) - EKG: QTc 435 -??mucinex 600mg BID ?? #??Stage EMY IPI3, EBV positive c-myc positive, post-transplant lymphoproliferative disorder (PTLD) > PET/ CT (01/03/19): Multiple new hypermetabolic and slightly enlarging lymph nodes above and below the diaphragm consistent with progression of disease. - pt of Dr. Head -??follow up BMBx 01/04 - follow up lymph node Bx: today - EBV PCR: pending - CMV negative - pain regimen: tylenol 500 mg, oxycodon 5 mg, morphine 1g ?? 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 # hx of CMV viremia?? - last detected on 09/28/18 - negative on 10/06/18, 11/04/18 - continue valganciclovir 450 mg BID - CMV negative 01/03 ? Access: peripehral DVT ppx: lovenox Diet: adult regular FULL CODE ?? 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 Intraoperative Fluids: See anesthesia report Specimens: ID Type Source Tests Collected by Time A : right neck mass Tissue Soft tissue biopsy SURGICAL PATHOLOGY Bebe Valdes MD 01/06/2019 0841 B : additional right neck tissue Tissue Soft tissue biopsy SURGICAL PATHOLOGY Bebe Valdes MD 01/06/2019 0845 C : right neck scar Tissue Soft tissue biopsy SURGICAL PATHOLOGY Bebe Valdes MD 01/06/2019 0845 Implants: Nothing was implanted during the procedure Blood/Blood Products Transfused: None Complications: None Condition on Discharge from the operating room was stable Violeta Her MD Date: 01/06/2019 Time: 10:07 AM TEACHING ATTESTATION : I was present and directly participated in the entire procedure (including opening and closing). Cosigned by Bebe Valdes MD at 01/06/2019 1:40 PM LITIGATION ASSOCIATE GATION ASSOCIATE GATION ASSOCIATE * Plan of Care - Niurka Hanson RN - 01/06/2019 5:45 AM CST Goals: Clinical Goals for the Shift: monitor vs, intake and output, npo at midnight for biopsy Summary: Problem: Health Behavior: Goal: Understanding of discharge needs will improve Outcome: Progressing Problem: Lack of Knowledge: Goal: Knowledge of disease or condition will improve Outcome: Progressing Problem: Physical Regulation: Goal: Ability to demonstrate capillary refill time of less than 2 seconds will improve Outcome: Progressing Goal: Color and temperature of extremities will improve Outcome: Progressing Goal: Diagnostic test results will improve Outcome: Progressing Goal: Ability to maintain a body temperature in the normal range will improve Outcome: Progressing Problem: Safety: Goal: Will remain free from falls Outcome: Progressing Goal: Will remain free from injury from falls Outcome: Progressing Goal: Will remain free from falls and injury in home environment Outcome: Progressing Problem: Lack of Knowledge: Goal: Complications related to the disease process, condition or treatment will be avoided or minimized Outcome: Progressing GATION ASSOCIATE * Op Note - Taina, Violeta Harrison MD - 01/06/2019 12:00 AM CST SURGEON BEBE VALDES MD PRETZEL TWISTING MACHINE OPERATOR SURGEON JONI QUIÑONEZ MD SECOND ASSISISTANT SURGEON VIOLETA ARREAGA MD Preoperative Diagnosis High-grade B-cell lymphoma. Postoperative Diagnosis High-grade B-cell lymphoma. Procedure Excision of right neck lymph nodes. Operative Findings Right level 1B lymph nodes, enlarged, that were successfully removed. Operative Details The patient was brought into the operating room and positioned on the operating room table in a supine fashion. A standard preoperative time-out was performed. All necessary imaging was displayed throughout the entirety of the case. General anesthesia was induced and the patient was successfully intubated transorally. The head of bed was rotated 180 degrees. The surgical site was carefully marked and injected with 1% lidocaine with 1:100,000 epinephrine. A previous surgical scar was carefully excised using a knife and this specimen was sent for both pathology and research purposes. We cut through the platysma muscle underlying the scar and elevated skin flaps superiorly. We were able to palpate some submandibular gland tissue and the nodes in level 1B. Using blunt and sharp dissection the nodes were carefully excised in their entirety. Overlying fascia was bipolared and any bleeding was carefully controlled with surgical clips or bipolar cautery. We removed 2 large lymph nodes from level 1B. We also sent some additional tissue from what appeared to be the right submandibular gland. We then dissected along the anterior border of the sternocleidomastoid muscle and followed this along its medial border. We palpated for any lymph nodes in level 2A, but were not able to appreciate any. At this point, we made sure that there was proper hemostasis and a small self-suction drain was placed into the wound. The deep platysma and subcutaneous tissue was closed using interrupted buried3-0 Vicryl sutures. The skin was closed using Monocryl suture. Steri- Strips were placed over the wound. The patient was successfully extubated in the operating room and transported back to the postanesthesia care unit. Complications None. STATEMENT OF PRESENCE, I was present for all the critical portions of the case. Dr Joni Quiñonez was immediately available for the remainder. Job ID/VF Job ID: [id number] Cosigned by Bebe Valdes MD at 01/06/2019 1:40 PM LITIGATION ASSOCIATE GATION ASSOCIATE * Plan of Care - Simin Crespo RN - 01/05/2019 12:55 PM CST Problem: Health Behavior: Goal: Understanding of discharge needs will improve Outcome: Progressing Problem: Lack of Knowledge: Goal: Knowledge of disease or condition will improve Outcome: Progressing Problem: Physical Regulation: Goal: Ability to demonstrate capillary refill time of less than 2 seconds will improve Outcome: Progressing Goal: Color and temperature of extremities will improve Outcome: Progressing Goal: Diagnostic test results will improve Outcome: Progressing Goal: Ability to maintain a body temperature in the normal range will improve Outcome: Progressing Problem: Safety: Goal: Will remain free from falls Outcome: Progressing Goal: Will remain free from injury from falls Outcome: Progressing Goal: Will remain free from falls and injury in home environment Outcome: Progressing Problem: Lack of Knowledge: Goal: Complications related to the disease process, condition or treatment will be avoided or minimized Outcome: Progressing GATION ASSOCIATE * Hospital Course - Emili Tidwell MD - 01/05/2019 12:11 PM CST # Bilateral pneumonia PET/ CT (01/03/19) showed lung consolidations in right lower lobe and left upper lobe. On admission, WBC was 16.3 and febrile to 38.9. No growth was seen in either blood culture or sputum culture. Pt was started on cefepime and vancomycin and switched to levaquin 750 mg daily on the 3rd day for a 7-day course in total (end date 01/09). QTc was 435. For the persistent cough, mucinex 600mg BID was given and the cough has improved. He should get follow up imaging to assess for resolution. # Hx of PTLD Stage EMY IPI3, EBV positive, c-myc positive, post-transplant lymphoproliferative disorder (PTLD) -pt of Dr. Head. S/p R-CHOP x1 08/2017, DA-EPOCH-R last dose 09/2017- 12/2017, IT MTX w/ cycle III. PET/ CT (01/03/19) showed multiple new hypermetabolic and slightly enlarging lymph nodes above and below the diaphragm concerning with progression of disease. Bone marrow biopsy performed on 01/04 with aspirate pending. Lymph node excision biopsy was done by ENT on 01/06. Serum CMV and EBV PCR were negative. His oncologist Dr. Gillespie arranged this admission and was notified of the patient's discharge to arrange appropriate follow up. Replacement of the port would be an outpatient procedure. 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 He was continued on home Tacrolimus 0.5 mg BID and its trough level was 6. No changes to tacrolimus regimen wasrecommended by transplant pharmacy. He follows with [facility]. # Hx of CMV viremia CMV was last detected on 09/28/18 on PCR screening but was negative on 10/06/18, 11/04/18 and 01/03/19. Pt was continued on home valganciclovir 450 mg BID. GATION ASSOCIATE GATION ASSOCIATE GATION ASSOCIATE GATION ASSOCIATE GATION ASSOCIATE * Medical Student - IbanEsther duncan - 01/05/2019 7:50 AM CST Oncology Progress Note Chief Complaint: Persistent cough Mr. 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 Head's outpatient clinic for relapse with??persistent cough. ?? Subjective Pain from the bone marrow biopsy yesterday Cough improving Active Treatment & Therapy Plans for Beka Nichols Justin J does not have any active plans of the following types: Oncology Chemotherapy Treatment, Oncology Treatment (2), Oncology Treatment (3), Oncology Supportive Care, Specialty Infusion Treatment, Blood Products, BMT, Hematology No Known Allergies Current Facility-Administered Medications: ??? acetaminophen (TYLENOL) tablet 650 mg, 650 mg, oral, Q6H PRN, Emili Tidwell MD ??? cefepime (MAXIPIME) 1000 mg/10 mL in sterile water (premix) 1,000 mg, 1,000 mg, intravenous, Q8H, Malena Junior MD, Stopped at 01/05/19 0045 ??? guaiFENesin ER (MUCINEX) extended release tablet 600 mg, 600 mg, oral, BID, Malena Junior MD,600 mg at 01/04/192047 ??? ondansetron (ZOFRAN) injection 4 mg, 4 mg, intravenous, Q8H PRN, Malena Junior MD, 4 mg at 01/04/19 1702 ??? polyvinyl alcohol-povidone (REFRESH CLASSIC) 1.4-0.6 % ophthalmic solution 1 drop, 1 drop, eacheye, TID PRN, Malena Junior MD, 1 drop at 01/03/192005 ??? sodium chloride 0.9% flush 0.5-20 mL, 0.5-20 mL, intra-catheter, Q8H PIPPA, Malena Junior MD, 10 mL at 01/05/19 0631 ??? sodium chloride 0.9% flush 0.5-20 mL, 0.5-20 mL, intra-catheter, PRN, Malena Junior MD ??? tacrolimus (PROGRAF) capsule 0.5 mg, 0.5 mg, oral, BID, Malena Junior MD, 0.5 mg at 01/04/192047 ??? valGANciclovir (VALCYTE) tablet 450 mg, 450 mg, oral, BID, Malena Junior MD, 450 mg at 01/04/192047 ??? vancomycin 1000 mg/200 mL in dextrose 5% (premix) 1,000 mg, 1,000 mg, intravenous, Q12H, Malena Junior MD, Stopped at 01/05/19 06 Review of Systems: Review of systems per HPI and otherwise all systems are negative Objective Vitals: 24hr Min/Max: Temp Min: 36.7 ??C (98.1 ??F) Max: 36.9 ??C (98.4 ??F) Pulse Min: 66 Max: 82 BP Min: 94/54 Max: 100/53 Resp Min: 14 Max: 16 SpO2 Min: 95 % Max: 98 % Most Recent : Vitals: 01/05/19 0430 BP: 99/54 BP Location: Right arm Pulse: 66 Resp: 16 Temp: 36.9 ??C (98.4 ??F) TempSrc: Oral SpO2: 96% Weight: I/O last 2 completed shifts: In: 510 [I.V.:510] Out: 975 [Urine:975] Physical Exam: General appearance: cooperative and mild distress Head: Normocephalic, without obvious abnormality, atraumatic Throat/Mouth: no mucositis or thrush Neck: no adenopathy, no carotid bruit, no JVD and supple, symmetrical, trachea midline Lungs: clear to auscultation bilaterally Heart: regular rate and rhythm, S1, S2 normal, no murmur, click, rub or gallop Abdomen: soft, non-tender; bowel sounds normal; no masses, no organomegaly Extremities: No edema, well perfused Pulses: 2+ and symmetric Skin: Skin color, texture, turgor normal. No rashes or lesions Lymph nodes: Cervical adenopathy: in the right Neurologic: Alert and oriented x4, non-focal CBC: Recent Labs Lab Units 01/05/19 0431 WBC K/cumm 12.4* HEMOGLOBIN g/dL 13.8 HEMATOCRIT % 39.9 MCV fL 95.7 PLATELETS K/cumm 411* NEUTROS ABS K/cumm 8.0* CMP: Recent Labs Lab Units 01/05/19 0431 01/03/19 1627 SODIUM mmol/L 140 < > 135 POTASSIUM PLASMA mmol/L 4.5 < > 3.8 CO2 mmol/L 25 < > 23 BUN SERUM mg/dL 10 < > 10 GLUCOSE mg/dL 83 < > 108 CREATININE mg/dL 0.79* < > 0.73* CALCIUM mg/dL 9.0 < > 8.6 CHLORIDE mmol/L 104 < > 101 ALBUMIN g/dL -- -- 3.6 AST Units/L -- -- 31 ALT Units/L -- -- 59* ALK PHOS Units/L -- -- 334* BILIRUBIN TOTAL mg/dL -- -- 0.8 TOTAL PROTEIN g/dL -- -- 5.9* ANIONGAP mmol/L 11 < > 11 < > = values in this interval not displayed. PT: Recent Labs Lab Units 01/03/19 1627 PROTIME (PT) sec 12.9 PTT: Recent Labs Lab Units 01/03/19 1627 APTT sec 28.8 Imaging PET/ CT (01/03/19) 1. ??Multiple new hypermetabolic and slightly enlarging lymph nodes above and below the diaphragm (bilateral cervical, axillary, mediastinal, mesenteric, retroperitoneal, and left inguinal), consistent with progression of disease. 2. ??New right lower lobe and left upper lobe lung consolidations. Findings most likely represent pneumonia rather than pulmonary PTLD. 3. ??Diffusely increased activity throughout bone medullary cavities the axial and proximal appendicular skeleton, which may represent marrow involvement versus marrow hyperplasia. Recommend correlation with marrow biopsy. ?? CT Neck Soft Tissue (12/28/18) 1. ??New diffuse cervical and supraclavicular lymphadenopathy in this patient with known PTLD 2. ??Severe, worsened chronic sinusitis without evidence of extrasinus disease Assessment/Plan Mr. 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 Head's outpatient clinic for relapse with??persistent cough. ?? # Bilateral penumonia > PET/ CT (01/03/19): New right lower lobe and left upper lobe lung consolidations > immunocompromised s/p liver transplant > On admission, leukocytosis to 16.3, febrile 38.9 3pm - WBC improved to 12.4 today - blood culture, sputum culture: NGTD - d/c cefepime 1g q8h and vancomycin 1g q12h - switch to levaquin 750 mg daily for 7-day course - EKG: QTc 435 - mucinex 600mg BID ?? # Stage EMY IPI3, EBV positive c-myc positive, post-transplant lymphoproliferative disorder (PTLD) > PET/ CT (01/03/19): Multiple new hypermetabolic and slightly enlarging lymph nodes above and below the diaphragm consistent with progression of disease. - pt of Dr. Head - follow up BMBx 01/04 - Lymph node Bx: 01/06 9:50am - EBV, CMV PCR: negative - pain regimen: tylenol 500 mg, oxycodon 5 mg, morphine 1g ?? 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 # hx of CMV viremia?? - last detected on 09/28/18 - negative on 10/06/18, 11/04/18 - continue valganciclovir 450 mg BID - CMV PCR: negative ? Access: peripehral DVT ppx: lovenox Diet: adult regular FULL CODE ?? Esther Poe, Medical Student Cosigned by Lamar Sherman MD at 01/05/2019 3:49 PM LITIGATION ASSOCIATE GATION ASSOCIATE GATION ASSOCIATE * Plan of Care - Niurka Hanson RN - 01/05/2019 6:24 AM CST Goals: Clinical Goals for the Shift: monitor vs, intake and output, npo at midnight for biopsy Summary: Problem: Health Behavior: Goal: Understanding of discharge needs will improve Outcome: Progressing Problem: Lack of Knowledge: Goal: Knowledge of disease or condition will improve Outcome: Progressing Problem: Physical Regulation: Goal: Ability to demonstrate capillary refill time of less than 2 seconds will improve Outcome: Progressing Goal: Color and temperature of extremities will improve Outcome: Progressing Goal: Diagnostic test results will improve Outcome: Progressing Goal: Ability to maintain a body temperature in the normal range will improve Outcome: Progressing Problem: Safety: Goal: Will remain free from falls Outcome: Progressing Goal: Will remain free from injury from falls Outcome: Progressing Goal: Will remain free from falls and injury in home environment Outcome: Progressing Problem: Lack of Knowledge: Goal: Complications related to the disease process, condition or treatment will be avoided or minimized Outcome: Progressing GATION ASSOCIATE * Plan of Care - Johnathan Burrows RN - 01/04/2019 4:47 PM CST Unable To Complete initial Assessment Not In Room Earlier In Shift. GATION ASSOCIATE * Plan of Care - Vianney Ramos MSW - 01/04/2019 4:25 PM CST SW received order for AD/ DPOA. SW attempted to meet with patient to provide AD paperwork/form. Patient was not available at time of visit as patient with busy with nursing staff. SW to try again at a later time. Vianney Saab DEBURR TECHNICIAN [phone] GATION ASSOCIATE * Plan of Care - Erica Gifford RN - 01/04/2019 3:12 PM LITIGATION ASSOCIATE Goals: Clinical Goals for the Shift: monitor vs, intake and output, npo at midnight for biopsy Summary: Problem: Health Behavior: Goal: Understanding of discharge needs will improve Outcome: Progressing Problem: Lack of Knowledge: Goal: Knowledge of disease or condition will improve Outcome: Progressing Problem: Physical Regulation: Goal: Ability to demonstrate capillary refill time of less than 2 seconds will improve Outcome: Progressing Goal: Color and temperature of extremities will improve Outcome: Progressing Goal: Diagnostic test results will improve Outcome: Progressing Goal: Ability to maintain a body temperature in the normal range will improve Outcome: Progressing Problem: Safety: Goal: Will remain free from falls Outcome: Progressing Goal: Will remain free from injury from falls Outcome: Progressing Goal: Will remain free from falls and injury in home environment Outcome: Progressing Problem: Lack of Knowledge: Goal: Complications related to the disease process, condition or treatment will be avoided or minimized Outcome: Progressing GATION ASSOCIATE * Medical Student - DeepikaEsther - 01/04/2019 8:39 AM CST Oncology Progress Note Chief Complaint: Persistent cough Mr. 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 Head's outpatient clinic for relapse with persistent cough. Subjective Still coughing Feel nauseated after bone marrow biopsy Active Treatment & Therapy Plans for Beka Nichols Justin J does not have any active plans of the following types: Oncology Chemotherapy Treatment, Oncology Treatment (2), Oncology Treatment (3), Oncology Supportive Care, Specialty Infusion Treatment, Blood Products, BMT, Hematology No Known Allergies Current Facility-Administered Medications: ??? acetaminophen (TYLENOL) tablet 650 mg, 650 mg, oral, Q6H PRN, Malena Junior MD, 650 mg at 01/04/19 0835 ??? cefepime (MAXIPIME) 1000 mg/10 mL in sterile water (premix) 1,000 mg, 1,000 mg, intravenous, Q8H, Malena Junior MD, Stopped at 01/04/19 0905 ??? guaiFENesin ER (MUCINEX) extended release tablet 600 mg, 600 mg, oral, BID, Malena Junior MD,600 mg at 01/04/19 0827 ??? heparin 100 unit/mL injection 500 Units, 5 mL, IV flush, Once, Fabi Kelsey NP ??? HYDROmorphone (DILAUDID) 1 mg/mL injection - ADS Override Pull, , , , ??? lidocaine (XYLOCAINE) 20 mg/mL (2 %) injection 15 mL, 15 mL, subcutaneous, Once, Fabi Kelsey, AIDEN ??? polyvinyl alcohol-povidone (REFRESH CLASSIC) 1.4-0.6 % ophthalmic solution 1 drop, 1 drop, eacheye, TID PRN, Malena Junior MD, 1 drop at 01/03/192005 ??? sodium chloride 0.9% flush 0.5-20 mL, 0.5-20 mL, intra-catheter, Q8H PIPPA, Malena Junior MD, 10 mL at 01/04/19826 ??? sodium chloride 0.9% flush 0.5-20 mL, 0.5-20 mL, intra-catheter, PRN, Malena Junior MD ??? tacrolimus (PROGRAF) capsule 0.5 mg, 0.5 mg, oral, BID, Malena Junior MD, 0.5 mg at 01/04/19826 ??? valGANciclovir (VALCYTE) tablet 450 mg, 450 mg, oral, BID, Malena Junior MD, 450 mg at 01/04/19826 ??? vancomycin 1000 mg/200 mL in dextrose 5% (premix) 1,000 mg, 1,000 mg, intravenous, Q12H, Malena Junior MD, Stopped at 01/04/19628 Review of Systems: Review of systems per HPI and otherwise all systems are negative Objective Vitals: 24hr Min/Max: Temp Min: 37 ??C (98.6 ??F) Max: 38.9 ??C (102 ??F) Pulse Min: 82 Max: 107 BP Min: 95/60 Max: 109/60 Resp Min: 16 Max: 16 SpO2 Min: 94 % Max: 96 % Most Recent : Vitals: 01/04/19522 BP: 95/60 Patient Position: Pulse: Resp: Temp: TempSrc: SpO2: Weight: I/O last 2 completed shifts: In: 1998 [P.O.:400; I.V.:1189; IV Piggyback:410] Out: 1400 [Urine:1400] Physical Exam: General appearance: cooperative and no distress Head: Normocephalic, without obvious abnormality, atraumatic Throat/Mouth: no mucositis or thrush Neck: no adenopathy, no carotid bruit, no JVD and supple, symmetrical, trachea midline Back: range of motion normal Lungs: clear to auscultation bilaterally Heart: regular rate and rhythm, S1, S2 normal, no murmur, click, rub or gallop Abdomen: soft, non-tender; bowel sounds normal; no masses, no organomegaly Extremities: No edema, well perfused Pulses: 2+ and symmetric Skin: Skin color, texture, turgor normal. No rashes or lesions Lymph nodes: Cervical adenopathy: in the right Neurologic: Alert and oriented x4, non-focal CBC: Recent Labs Lab Units 01/04/19 0847 WBC K/cumm 17.0* HEMOGLOBIN g/dL 14.5 HEMATOCRIT % 42.2 MCV fL 95.7 PLATELETS K/cumm 437* NEUTROS ABS K/cumm 10.7* CMP: Recent Labs Lab Units 01/04/19 0847 01/03/19 1627 SODIUM mmol/L 138 135 POTASSIUM PLASMA mmol/L 4.8 3.8 CO2 mmol/L 25 23 BUN SERUM mg/dL 8 10 GLUCOSE mg/dL 88 108 CREATININE mg/dL 0.75* 0.73* CALCIUM mg/dL 9.4 8.6 CHLORIDE mmol/L 103 101 ALBUMIN g/dL -- 3.6 AST Units/L -- 31 ALT Units/L -- 59* ALK PHOS Units/L -- 334* BILIRUBIN TOTAL mg/dL -- 0.8 TOTAL PROTEIN g/dL -- 5.9* ANIONGAP mmol/L 10 11 PT: Recent Labs Lab Units 01/03/19 1627 PROTIME (PT) sec 12.9 PTT: Recent Labs Lab Units 01/03/19 1627 APTT sec 28.8 Imaging PET/ CT (01/03/19) 1. Multiple new hypermetabolic and slightly enlarging lymph nodes above and below the diaphragm (bilateral cervical, axillary, mediastinal, mesenteric, retroperitoneal, and left inguinal), consistentwith progression of disease. 2. New right lower lobe and left upper lobe lung consolidations. Findings most likely represent pneumonia rather than pulmonary PTLD. 3. Diffusely increased activity throughout bone medullary cavities the axial and proximal appendicular skeleton, which may represent marrow involvement versus marrow hyperplasia. Recommend correlation with marrow biopsy. ?? CT Neck Soft Tissue (12/28/18) 1. New diffuse cervical and supraclavicular lymphadenopathy in this patient with known PTLD 2. Severe, worsened chronic sinusitis without evidence of extrasinus disease Assessment/Plan Mr. 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 Head's outpatient clinic for relapse with persistent cough. # Penumonia > PET/ CT (01/03/19): New right lower lobe and left upper lobe lung consolidations > immunocompromised s/p liver transplant > leukocytosis to 16.3, febrile 38.9 3pm today - blood culture: NGTD - sputum culture: pending - cefepime 1g q8h - vancomycin 1g q12h - deescalate to PO ABx tomorrow - mucinex 600mg BID ?? # Stage EMY IPI3, EBV positive c-myc positive, post-transplant lymphoproliferative disorder (PTLD) > PET/ CT (01/03/19): Multiple new hypermetabolic and slightly enlarging lymph nodes above and below the diaphragm consistent with progression of disease. - pt of Dr. Head - BMBx today - Lymph node Bx: 01/06 9:50am - EBV, CMV PCR: pending ?? # s/p liver transplant in 1998 for acute liver failure from autoimmune hepatitis - tacrolimus 0.5 mg BID, check trough level ?? # hx of CMV viremia - last detected on 09/28/18 - negative on 10/06/18, 11/04/18 - continue valganciclovir 450 mg BID - check CMV PCR ?? Access: peripehral DVT ppx: lovenox Diet: adult regular FULL CODE ?? Esther Poe, Medical Student Cosigned by Lamar Sherman MD at 01/05/2019 2:39 PM LITIGATION ASSOCIATE GATION ASSOCIATE GATION ASSOCIATE * Plan of Care - Tess Nix RN - 01/03/2019 8:20 PM CST Goals: Clinical Goals for the Shift: monitor vs, intake and output, npo at midnight for biopsy Problem: Health Behavior: Goal: Understanding of discharge needs will improve Outcome: Progressing Problem: Lack of Knowledge: Goal: Knowledge of disease or condition will improve Outcome: Progressing Problem: Physical Regulation: Goal: Ability to demonstrate capillary refill time of less than 2 seconds will improve Outcome: Progressing Goal: Color and temperature of extremities will improve Outcome: Progressing Goal: Diagnostic test results will improve Outcome: Progressing Goal: Ability to maintain a body temperature in the normal range will improve Outcome: Progressing Problem: Safety: Goal: Will remain free from falls Outcome: Progressing Goal: Will remain free from injury from falls Outcome: Progressing Goal: Will remain free from falls and injury in home environment Outcome: Progressing Problem: Lack of Knowledge: Goal: Complications related to the disease process, condition or treatment will be avoided or minimized Outcome: Progressing Summary: Patient resting comfortably, patient has cough and is using medication for it. No sputum production so far, patient instructed to cough into cup if he feels like he can cough something out. Patient is alert and oriented x4 and is up independently in the room. Watch VS overnight to monitor for fevers, and continue with antibiotic treatment plan. NPO at midnight for lymph node biopsy. WCM GATION ASSOCIATE * Plan of Care - Stephanie Lazaro RN - 01/03/2019 7:29 PM CST Goals: Patient will experience normal thermoregulation. Summary: GATION ASSOCIATE * Medical Student - Esther Poe - 01/03/2019 5:08 PM CST Oncology Medicine History & Physical Chief Complaint: Persistent cough HPI: Mr. 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 Head's outpatient clinic for relapse with persistent cough. Pt has been coughing periodically for 3 months, productive of white/ yellow sputum. He regularly feels that his cervical lymph nodes wax and wane in size but this time he noticed theyhave increased in size. Admits ALSTON however, denies chills, night sweats, wt loss, loss of appetite, nausea, vomiting, diarrhea, constipation. Oncology history 1. Liver transplant for acute liver failure from autoimmune hepatitis 1998 2. 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 Sub-carinal lymph nodes biopsy showed atypical lymphoid infiltrate 03/2017 5. PET/CT showed bilateral cervical, R SC, axillary, hilar/med accumulation 04/2017 6. Core needle biopsy of R cervical node showed EBV +, follicular hyperplasia 7. Bone Marrow Biopsy showed none EBV + cells, otherwise normal 8. IVIG x2, steroids, neupogen -05/17 9. Diagnosed c-myc+, IGH+ PTLD ???early?? 10. c-myc+, JAKOB+ PTLD monomorphic 08/17 11. PET/CT showed diffuse LAD with R cervical, bilateral axillary, RP, pulmonary nodules 12. R-CHOP x 1, EPOCH-R x 5, ME after C2 (5PS 4), CR p C6 08/17-12/19 13. IT MTX x 1 --> D/c due to severe MANUEL + evidence intracranial hypotension 10/17 PMH PTLD (post-transplant lymphoproliferative disorder) Autoimmune hepatitis Pulmonary Embolism Surgical History Splenectomy Liver Transplant Family History Mother: colorectal cancer (dx 30) Sister: DM Maternal grandfather: non-Hodgkins lymphoma (dx 60s) Maternal grandmother: ovarian, breast cancer (dx 20s) Paternal grandfather: acute leukemia (dx 90s), DM Paternal grandmother: heart problems, DM Social history Now laid off Lives with parents Non-smoker EtOH 3-4 glasses/ week No illicit drug use Allergies: NKA Home medication Tacrolimus 0.5 mg BID Valganciclovir 450 mg BID Cancer Staging No matching staging information was found for the patient. 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 ICD-10 Code: T86.90 Histologic Type: CD20+, CD10+, Bcl-6+, c-myc+ (90%), JAKOB+, Ki-67 95%, FISH - c- myc+, IGH+, Bcl-2-,Bcl-6- Date of Diagnosis: 05/03/17 Stage at Diagnosis: IV A Initial sites of Disease: cervical, axill, mesenteric, RP LAD, lungs, bowel IPI: 3 (stage, # EN sites, LDH) CRITICAL EVENT CHRONOLOGY (Should reflect initial treatment, site and date of all recurrences, all subsequent treatments and major complications) Date: 1998 Liver transpant x 2 for acute liver failure (autoimmune hepatitis) 2005 Developed ITP Refractory ITP --> splenectomy --> partial response 03/11/17 Bronch with subcarinal LNBx --> atypical lymphoid infiltrate , flow neg 04/05/17 PET/CT to evaluate fevers, fatigue --> bilateral cervical, R SC (SVU 20), axillary (SUV 9), hilar/med, mesenteric, RP, iliac, ing (SUV 6) LAD, diffuse uptake in SB marrow, non-FDG avid pulm nodules 04/06/17 Core needle bx R cervical node --> EBV+, follicular hyperplasia 04/07/17 BMBx --> noneEBV+ cells otherwise normal 04/28/17-05/02/17 Admit fevers/neutropenia, thrombocytopenia (4k) --> IVIG x 2 (plts 4k --> 230k), steroids, neupogen 05/03/17 R cervical LNBx --> PTLD ( early ), FISH --> c-myc+, IGH+ 08/03/17 R cervical LNBx --> JAKOB+ PTLD ( monomorphic ), c-myc+ by FISH 08/19/17 PET/CT --> diffuse LAD with R cervical (SUV 41.7), bilat ax, RP, pulm nodules, bowel 08/25/17-12/08/17 R-CHOP x 1, EPOCH-R x 5 --> ME after C2 (5PS 4), CR p C6 (uptake in small bowel SUV 15) 10/06/17 IT MTX x 1 --> D/c due to severe MANUEL + evidence intracranial hypotention -10/21/17 Admit: PE, spinal headache --> dc'd on lovenox 11/28/17-12/05/17 Admit: neutropenic fever, sepsis, rhinovirus 12/17-12/21/17 Admit: neutropenic fever, rhinovirus Past Medical History Active Treatment & Therapy Plans for Beka Nichols Justin J does not have any active plans of the following types: Oncology Chemotherapy Treatment, Oncology Treatment (2), Oncology Treatment (3), Oncology Supportive Care, Specialty Infusion Treatment, Blood Products, BMT, Hematology Past Medical History: Diagnosis Date ??? Generalized enlarged lymph nodes Lymphadenopathy, generalized - (Added by TW Conv) ??? History of non-Hodgkin's lymphoma History of non-Hodgkin's lymphoma - (Added by TW Conv) ??? Localized enlarged lymph nodes LAD (lymphadenopathy), mediastinal - (Added by TW Conv) ??? Other complications of unspecified transplanted organ and tissue PTLD (post-transplant lymphoproliferative disorder) - (Added by TW Conv) Past Surgical History: Procedure Laterality Date ??? BIOPSY LYMPH NODE SUPERFICIAL N/A 05/22/2014 ??? US ABDOMEN COMPLETE W LIVER DUPLEX Right 10/18/2018 ??? US GUIDED BIOPSY LIVER N/A 10/18/2018 No Known Allergies Medications Prior to Admission Medication Sig Dispense Refill Last Dose ??? tacrolimus (PROGRAF) 0.5 mg capsule Take 1 capsule (0.5 mg total) by mouth 2 (two) times a day.180 capsule 3 Taking ??? valGANciclovir (VALCYTE) 450 mg tablet Take 1 tablet (450 mg total) by mouth 2 (two) times a day. 60 tablet 1 Taking Current Facility-Administered Medications: ??? acetaminophen (TYLENOL) tablet 650 mg, 650 mg, oral, Q6H PRN, Malena Junior MD, 650 mg at 01/03/19 1606 ??? cefepime (MAXIPIME) 1000 mg/10 mL in sterile water (premix) 1,000 mg, 1,000 mg, intravenous, Q8H, Malena Junior MD, Last Rate: 20 mL/hr at 01/03/19 1632, 1,000 mg at 01/03/19 1632 ??? enoxaparin (LOVENOX) syringe 40 mg, 40 mg, subcutaneous, Daily-2100, Malena Junior MD ??? guaiFENesin ER (MUCINEX) extended release tablet 600 mg, 600 mg, oral, BID, Malena Junior MD ??? sodium chloride 0.9% flush 0.5-20 mL, 0.5-20 mL, intra-catheter, Q8H PIPPA, Malena Junior MD, 10 mL at 01/03/19 1635 ??? sodium chloride 0.9% flush 0.5-20 mL, 0.5-20 mL, intra-catheter, PRN, Malena Junior MD ??? tacrolimus (PROGRAF) capsule 0.5 mg, 0.5 mg, oral, BID, Malena Junior MD ??? valGANciclovir (VALCYTE) tablet 450 mg, 450 mg, oral, BID, Malena Junior MD ??? vancomycin 1000 mg/200 mL in dextrose 5% (premix) 1,000 mg, 1,000 mg, intravenous, Q12H, Malena Junior MD Family History Problem Relation Age of Onset ??? Rectal cancer Mother Rectal cancer - (Added by TW Conv) ??? Diabetes type II Sister Family history of type 2 diabetes mellitus - (Added by TW Conv) Social History Tobacco Use ??? Smoking status: Never Smoker ??? Smokeless tobacco: Never Used Substance Use Topics ??? Alcohol use: Not on file Review of Systems: Review of systems per HPI and otherwise all systems are negative Objective Vitals: Arrival Vitals [01/03/19 1448] Temp 38 ??C (100.4 ??F) Pulse 107 Resp 16 BP 109/60 SpO2 95 % Temp src Oral Heart Rate Source Monitor Patient Position Sitting BP Location Right arm FiO2 (%) 24hr Min/Max: Temp Min: 38 ??C (100.4 ??F) Max: 38.9 ??C (102 ??F) Pulse Min: 107 Max: 107 BP Min: 109/60 Max: 109/60 Resp Min: 16 Max: 16 SpO2 Min: 95 % Max: 95 % Most Recent : Vitals: 01/03/19 1555 BP: BP Location: Patient Position: Pulse: Resp: Temp: (!) 38.9 ??C (102 ??F) TempSrc: Oral SpO2: Weight: No intake/output data recorded. Physical Exam: General appearance: cooperative and no distress Head: Normocephalic, without obvious abnormality, atraumatic Throat/Mouth: no mucositis or thrush Neck: no adenopathy, no carotid bruit and no JVD Lungs: clear to auscultation bilaterally Heart: regular rate and rhythm, S1, S2 normal, no murmur, click, rub or gallop Abdomen: soft, non-tender; bowel sounds normal; no masses, no organomegaly Extremities: No edema, well perfused Pulses: 2+ and symmetric Skin: Skin color, texture, turgor normal. No rashes or lesions Lymph nodes: Cervical adenopathy: 1+ CBC: Recent Labs Lab Units 01/03/19 1627 WBC K/cumm 16.3* HEMOGLOBIN g/dL 13.2 HEMATOCRIT % 37.3* MCV fL 94.7 PLATELETS K/cumm 400 NEUTROS ABS K/cumm 8.7* CMP: Recent Labs Lab Units 12/28/18 0805 SODIUM mmol/L 137 POTASSIUM PLASMA mmol/L 4.5 CO2 mmol/L 29 BUN SERUM mg/dL 11 GLUCOSE mg/dL 91 CREATININE mg/dL 0.88 CALCIUM mg/dL 9.3 CHLORIDE mmol/L 103 ALBUMIN g/dL 4.1 AST Units/L 29 ALT Units/L 52 ALK PHOS Units/L 304* BILIRUBIN TOTAL mg/dL 0.4 TOTAL PROTEIN g/dL 6.3* ANIONGAP mmol/L 5 PT: PTT: Imaging PET/ CT (01/03/19) 1. Multiple new hypermetabolic and slightly enlarging lymph nodes above and below the diaphragm (bilateral cervical, axillary, mediastinal, mesenteric, retroperitoneal, and left inguinal), consistentwith progression of disease. 2. New right lower lobe and left upper lobe lung consolidations. Findings most likely represent pneumonia rather than pulmonary PTLD. 3. Diffusely increased activity throughout bone medullary cavities the axial and proximal appendicular skeleton, which may represent marrow involvement versus marrow hyperplasia. Recommend correlation with marrow biopsy. CT Neck Soft Tissue (12/28/18) 1. New diffuse cervical and supraclavicular lymphadenopathy in this patient with known PTLD 2. Severe, worsened chronic sinusitis without evidence of extrasinus disease Assessment/Plan Mr. 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 Head's outpatient clinic for relapse with persistent cough. # Penumonia >PET/ CT (01/03/19): New right lower lobe and left upper lobe lung consolidations >immunocompromised s/p liver transplant >leukocytosis to 16.3, febrile 38.9 3pm today -blood culture, sputum culture: pending -cefepime 1g q8h -vancomycin 1g q12h -mucinex 600mg BID # stage EMY IPI3, EBV positive c-myc positive, post-transplant lymphoproliferative disorder (PTLD) >PET/ CT (01/03/19): Multiple new hypermetabolic and slightly enlarging lymph nodes above and below the diaphragm consistent with progression of disease. -pt of Dr. 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 -tacrolimus 0.5 mg BID, check trough level # hx of CMV viremia -last detected on 09/28/18 -negative on 10/06/18, 11/04/18 -continue valganciclovir 450 mg BID Access: peripehral DVT ppx: lovenox Diet: adult regular FULL CODE Esther Poe, Medical Student Cosigned by Lamar Sherman MD at 01/05/2019 2:39 PM LITIGATION ASSOCIATE GATION ASSOCIATE GATION ASSOCIATE documented in this encounter Plan of Treatment Scheduled Procedures Name Priority Associated Diagnoses Date/Ti me COLONOSCOPY Encounter for screening for colorectal cancer in high risk patient Family history of rectal cancer documented as of this encounter Procedures Procedure Name Priority Date/Time Associated Diagnosis Comments LEUKEMIA/LYMPHOMA STUDIES Routine Gen Lab 01/06/2019 10:00 AM LITIGATION ASSOCIATE SURGICAL PATHOLOGY Routine 01/06/2019 8: 41 AM LITIGATION ASSOCIATE High grade B-cell lymphoma (CMS/HCC) EXCISION CYST/LESION/MASS - NECK 01/06/2019 7:40 AM LITIGATION ASSOCIATE High grade B-cell lymphoma (CMS/HCC) DIFFERENTIAL AUTO Timed 01/06/2019 4:5 5 AM LITIGATION ASSOCIATE CBC WITH AUTO DIFFERENTIAL Timed 01/06/2019 4:55 AM LITIGATION ASSOCIATE URIC ACID Timed 01/06/2019 4:55 AM LITIGATION ASSOCIATE PHOSPHORUS Timed 01/06/2019 4:55 AM LITIGATION ASSOCIATE MAGNESIUM Timed 01/06/2019 4:55 AM LITIGATION ASSOCIATE BASIC METABOLIC PANEL Timed 01/06/2019 4:55 AM LITIGATION ASSOCIATE DIFFERENTIAL AUTO Timed 01/05/2019 3:5 4 PM LITIGATION ASSOCIATE CBC WITH AUTO DIFFERENTIAL Timed 01/05/2019 3:54 PM LITIGATION ASSOCIATE APTT Timed 01/05/2019 3:54 PM LITIGATION ASSOCIATE PROTIME-INR STAT 01/05/2019 3:54 PM LITIGATION ASSOCIATE CBC WITH AUTO DIFFERENTIAL Routine 01/05/2019 4:31 AM LITIGATION ASSOCIATE MANUAL DIFFERENTIAL Routine 01/05/2019 4 :31 AM LITIGATION ASSOCIATE URIC ACID Routine 01/05/2019 4:31 AM LITIGATION ASSOCIATE PHOSPHORUS Routine 01/05/2019 4:31 AM LITIGATION ASSOCIATE LACTATE DEHYDROGENASE Routine 01/05/2019 4:31 AM LITIGATION ASSOCIATE VANCOMYCIN LEVEL TROUGH Timed 01/05/2019 4:31 AM LITIGATION ASSOCIATE BASIC METABOLIC PANEL Routine 01/05/2019 4:31 AM LITIGATION ASSOCIATE BIOPSY BONE MARROW Routine 01/04/2019 4: 53 PM LITIGATION ASSOCIATE High grade B-cell lymphoma (CMS/HCC) FLOW LEUKEMIA/LYMPHOMA Routine 9 11:30 AM LITIGATION ASSOCIATE SURGICAL PATHOLOGY Routine 01/04/2019 11 :30 AM LITIGATION ASSOCIATE DIFFERENTIAL AUTO STAT 01/04/2019 8:4 7 AM LITIGATION ASSOCIATE TACROLIMUS LEVEL, TROUGH Timed 01/04/2019 8:47 AM LITIGATION ASSOCIATE CBC WITH AUTO DIFFERENTIAL STAT 01/04/2019 8:47 AM LITIGATION ASSOCIATE URIC ACID STAT 01/04/2019 8:47 AM LITIGATION ASSOCIATE PHOSPHORUS STAT 01/04/2019 8:47 AM LITIGATION ASSOCIATE BASIC METABOLIC PANEL STAT 01/04/2019 8:47 AM LITIGATION ASSOCIATE AEROBIC CULTURE AND GRAM STAIN Routine 01/04/2019 2:51 AM LITIGATION ASSOCIATE CYTOGENETICS AND GENOMICS Routine 01/04/2019 12:00 AM LITIGATION ASSOCIATE CYTOMEGALOVIRUS (CMV) DNA, QUANT GEN LAB Routine 01/03/2019 4:27 PM LITIGATION ASSOCIATE DIFFERENTIAL AUTO Routine 01/03/2019 4:2 7 PM LITIGATION ASSOCIATE HIV 1/2 ANTIBODY PLUS P24 ANTIGEN Routine 01/03/2019 4:27 PM LITIGATION ASSOCIATE NADINE BORREGO VIRUS PCR, QUANTITATIVE Routine 01/03/2019 4:27 PM LITIGATION ASSOCIATE CBC WITH AUTO DIFFERENTIAL Routine 01/03/2019 4:27 PM LITIGATION ASSOCIATE BLOOD CULTURE STAT 01/03/2019 4:27 PM LITIGATION ASSOCIATE BLOOD CULTURE STAT 01/03/2019 4:27 PM LITIGATION ASSOCIATE APTT Routine 01/03/2019 4:27 PM LITIGATION ASSOCIATE PROTIME-INR Routine 01/03/2019 4:27 PM LITIGATION ASSOCIATE MAGNESIUM Routine 01/03/2019 4:27 PM LITIGATION ASSOCIATE COMPREHENSIVE METABOLIC PANEL Routine 01/03/2019 4:27 PM LITIGATION ASSOCIATE documented in this encounter Results * Leukemia/lymphoma studies (01/06/2019 10:00 AM LITIGATION ASSOCIATE) Leukemia/Lymp josé manuel Result See separate Surgical Pathology report. [facility] Tissue 01/06/2019 10:0 0 AM LITIGATION ASSOCIATE 01/06/2019 1:11 PM LITIGATION ASSOCIATE Narrative [facility] - 01/06/2019 3:02 PM LITIGATION ASSOCIATE us Anita Gillespie MD LAB BLOOD ORDERABLES Final Result [facility] Department [place] [address] * Surgical pathology (01/06/2019 8:41 AM LITIGATION ASSOCIATE) Tissue (Soft tissue biopsy) 01/06/2019 8:41 AM LITIGATION ASSOCIATE Tissue (Soft tissue biopsy) 01/06/2019 8:45 AM LITIGATION ASSOCIATE Tissue (Soft tissue biopsy) 01/06/2019 8:45 AM LITIGATION ASSOCIATE Narrative PATHOLOGY [facility] - 01/16/2019 1:49 PM CDT EPIC results best viewed via link to PDF [facility] Yulisa Garcia Laboratory [place] [address] SURGICAL PATHOLOGY REPORT FINAL Patient Name: ?? BEKA NICHOLS Gender: ??M : ??1995 (Age: 23) Address: ??[address] [place] [address] ??[id number] Hospital #: ??[id number] Taken:01/06/2019 Received:01/06/2019 Reported: 01/16/2019 Patient Type: [facility] Inpatient ?? Service: Oncology Location: [facility] ??[id number] Physician(s): ??Bebe Valdes M.D. Kali Cruz M.D. Diagnosis: A. Soft tissue, right neck mass, excision ? 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 - See comment B. Soft tissue, additional right neck tissue, excision ? - Salivary gland tissue with no specific histopathological abnormality ? - No significant lymphoid tissue identified C. Soft tissue, right neck scar, excision ? - Skin with scar ? - Diagnostic features of lymphoma are not seen jb201/11/2019 12:38 By this signature, I attest that the above diagnosis is based upon my personal examination of the slides(and/or other material indicated in the diagnosis). Iliana Cisneros M.D., Ph.D. Report Electronically Reviewed and Signed Out By ??Iliana Cisneros M.D., Ph.D. 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 Diagnostic features of monomorphic post-transplant lymphoproliferative disorder are not seen. Correlation with clinical and radiological findings is needed for full evaluation. This case was reviewed at the hematopathology consensus conference and Mi Dasilva, Quintin and Heriberto agree with the final diagnosis. Microscopic Description and Comment: Sections of the right neck mass show preservation of lizzie architecture by numerous variably sized hyperplastic follicles. ??Lymph node capsule is thickened. Flow cytometry performed on an adequate specimen reveals that lymphocyte-gated events account for 94% of the overall cellularity and include [id number] CD20- positive B cell population (49%) with predominantly polytypic expression of kappa and lambda light chains, although a small proportion appears to be not staining for either light chain. No significant co-expression of Cd5, Cd10 or CD23 is identified in B cell population. CD3, CD20, PAX-5, CD10, BCL-6, BCL-2 and CD21 immunostains and JAKOB in situ hybridization stain were performed (with appropriate controls) on block A1 in addition to flow cytometry to characterize staining of cells in tissue context. ??CD3 and CD20/PAX-5 highlight T and B cells within interfollicular and follicular areas, respectively. ??The B cells coexpress BCL6 and CD10 but not BCL-2. ??CD21 highlights follicular dendritic cell meshworks associated with numerous follicles. JAKOB shows very focal increased in EBV-positive cells.. Joaquin Hyatt MD, PhD History: The patient is a 23-year-old man with high-grade B-cell lymphoma. ??Operative procedure: Excisional lymph node biopsy of neck. Specimen(s) Received: A: Right neck mass B: Additional right neck tissue C: Right neck scar D: Right neck mass for Flow Gross Description: The specimens are received in three formalin filled containers each labeled with the patient's name. ? A. ??The first container is additionally labeled right neck mass and consists of two previously sectioned, oval-shaped, pink-preston lymph nodes measuring 2.4 x 2.0 x 1.2 cm and 1.9 x 1.2 x 1.1 cm. ??The cut surface reveals fleshy, slightly lobular, glistening, pink-preston tissue. ??Labeled A1 to A2 - primary care sales representative sections of the largest lymph node; A3 - primary care sales representative sections of the smaller lymph node. A4- A5 ??the remaining tissue. Jar 0. B. ??The second container is additionally labeled additional right neck tissue and consists of two roughly oval shaped portions of lobular, glandular-appearing, rubbery, pink-preston tissue measuring 2.5 x 1.6 x 0.8 cm and 1.5 x 1.0 x 0.3 cm. ??Each portion is sectioned to show the same glandular-appearing, pink-preston tissue. ??Labeled B1 - larger portions submitted entirely; B2 - smaller portion submitted entirely. ??Jar 0. C. ??The third container is additionally labeled right neck scar and consists of an elongated ellipse of wrinkled, preston-white skin measuring 3.9 x 0.7 cm with pink white and fibrous subcutaneous tissue excised to depth of up to 0.4 cm. ??The skin surface is wrinkly with no discrete lesions grossly appreciated. ??The specimen is unoriented and the margin is inked entirely in blue. ??Sections show white fibrous tissue. ??Labeled C1. ??Jar 1 mr2/01/06/2019 12:39 SADE Dye By this signature, I attest that the above diagnosis is based upon my personal examination of the slides(and/or other material). The performance characteristics of some immunohistochemical stains, fluorescence in-situ hybridization tests and immunophenotyping by flow cytometry cited in this report (if any) were determined by the Surgical Pathology Department at [facility] as part of an ongoing compliance quality performance analyst program and in compliance with federally mandated [...] determined by the Surgical Pathology Department of [facility]. ??It has not been cleared or approved by the U. S. Food and Drug Administration. IMAGES AND SCANNED DOCUMENTS, IF INCLUDED, ONLY VIEWABLE IN PDF VERSION OF REPORT Bebe Valdes MD LAB PATHOLOGY ORDERABLES Final Result PATHOLOGY [facility] 3rd Floor [place], [place] [phone] * (ABNORMAL) Basic metabolic panel (01/06/2019 4:55 AM LITIGATION ASSOCIATE) Sodium 138 135 - 145 mmol/L [facility] Potassium, pl 4.9 3.3 - 4.9 mmol/L [facility] Comment:Hemolyzed; (++); pot assium value may be falsely elevated by as much as 0.3 - 0.5 mmol/L. Suggest redraw and reanalysis. Chloride 106 97 - 110 mmol/L [facility] CO2 25 22 - 32 mmol/L [facility] Anion gap 7 2 - 15 mmol/L [facility] BUN 8 8 - 25 mg/dL [facility] Creatinine 0.74(L) 0.80 - 1.30 mg/dL [facility] Glucose 87 70 - 199 mg/dL [facility] Comment: Interpretive Data Fasting glucose >/= 126 [...] 2017. Calcium 8.9 8.5 - 10.3 mg/dL [facility] Blood specimen (specimen) 01/06/2019 4:55 AM LITIGATION ASSOCIATE 01/06/2019 5:04 AM LITIGATION ASSOCIATE Narrative [facility] - 01/06/2019 5:39 AM LITIGATION ASSOCIATE us Anita Gillespie MD LAB BLOOD ORDERABLES Final Result [facility] [address] Department [place] [address] * (ABNORMAL) Differential, auto (01/06/2019 4:55 AM LITIGATION ASSOCIATE) Neutrophil abs 7.4(H) 1.7 - 6.5 K/cumm [facility] Imm gran abs 0.3(H) 0.0 - 0.1 K/cumm [facility] Lymphocyte abs 2.2 0.8 - 3.3 K/cumm [facility] Monocyte abs 2.6(H) 0.2 - 0.8 K/cumm [facility] Eosinophil abs 0.2 0.0 - 0.5 K/cumm [facility] Basophil abs 0.0 0.0 - 0.1 K/cumm [facility] Neutrophil pct 57.9 % [facility] Comment: Interpretive Data Percent cell count reference ranges are not reported, since discordance with absolute values may lead to misinterpretation of CBC data. Current Interpretive Data was last revised on 2018. Imm gran pct 2.6 % [facility] Comment: Interpretive Data Percent cell count reference ranges are not reported, since discordance with absolute values may lead to misinterpretation of CBC data. Current Interpretive Data was last revised on 2018. Lymphocyte pct 17.2 % [facility] Comment: Interpretive Data Percent cell count reference ranges are not reported, since discordance with absolute values may lead to misinterpretation of CBC data. Current Interpretive Data was last revised on 2018. Monocyte pct 20.1 % [facility] Comment: Interpretive Data Percent cell count reference ranges are not reported, since discordance with absolute values may lead to misinterpretation of CBC data. Current Interpretive Data was last revised on 2018. Eosinophil pct 1.8 % [facility] Comment: Interpretive Data Percent cell count reference ranges are not reported, since discordance with absolute values may lead to misinterpretation of CBC data. Current Interpretive Data was last revised on 2018. Basophil pct 0.4 % [facility] Comment: Interpretive Data Percent cell count reference ranges are not reported, since discordance with absolute values may lead to misinterpretation of CBC data. Current Interpretive Data was last revised on 2018. Blood specimen (specimen) 01/06/2019 4:55 AM LITIGATION ASSOCIATE 01/06/2019 5:08 AM LITIGATION ASSOCIATE Narrative [facility] - 01/06/2019 5:17 AM LITIGATION ASSOCIATE Anita Gillespie MD LAB BLOOD ORDERABLES Final Result Performing Organization Address City/[facility]/ZIP Co de Phone Number [facility] [place] [address] * Uric acid (01/06/2019 4:55 AM LITIGATION ASSOCIATE) Pathologist [facility] Uric acid 3.0 3.0 - 8.0 mg/dL [facility] Blood specimen (specimen) 01/06/2019 4:55 AM LITIGATION ASSOCIATE 01/06/2019 5:04 AM LITIGATION ASSOCIATE Narrative [facility] - 01/06/2019 5:39 AM LITIGATION ASSOCIATE Anita Gillespie MD LAB BLOOD ORDERABLES Final Result Performing Organization Address City/[facility]/ZIP Co de Phone Number [facility] Department [place] [address] * Phosphorus (01/06/2019 4:55 AM LITIGATION ASSOCIATE) Phosphorus, pl 3.3 2.3 - 4.5 mg/dL [facility] Blood specimen (specimen) 01/06/2019 4:55 AM LITIGATION ASSOCIATE 01/06/2019 5:04 AM LITIGATION ASSOCIATE Narrative [facility] - 01/06/2019 5:39 AM LITIGATION ASSOCIATE Anita Gillespie MD LAB BLOOD ORDERABLES Final Result Performing Organization Address City/[facility] Co de Phone Number [facility] Department [place] [address] * Magnesium (01/06/2019 4:55 AM LITIGATION ASSOCIATE) [facility] Magnesium 1.8 1.4 - 2.5 mg/dL [facility] Blood specimen (specimen) 01/06/2019 4:55 AM LITIGATION ASSOCIATE 01/06/2019 5:04 AM LITIGATION ASSOCIATE Narrative [facility] - 01/06/2019 5:39 AM LITIGATION ASSOCIATE us Anita Gillespie MD LAB BLOOD ORDERABLES Final Result Performing Organization Address [facility] de Phone Number [facility] [place] [address] * (ABNORMAL) CBC with auto differential (01/06/2019 4:55 AM LITIGATION ASSOCIATE) [facility] WBC 12.8(H) 3.8 - 9.9 K/cumm [facility] Hgb 13.9 13.0 - 17.5 g/dL [facility] Hct 39.6 38.9 - 50.3 % [facility] Plt 410(H) 150 - 400 K/cumm [facility] MPV 10.1 9.1 - 12.3 fL [facility] RBC 4.21(L) 4.30 - 5.80 M/cumm [facility] MCV 94.1 81.3 - 96.4 fL [facility] MCH 33.0 27.1 - 33.3 pg [facility] MCHC 35.1 32.3 - 35.7 g/dL [facility] RDW CV 14.0 11.1 - 14.9 % [facility] RDW SD 49.0(H) 35.7 - 48.1 fL [facility] NRBC abs 0.00 0.00 - 0.01 K/cumm [facility] Blood specimen (specimen) 01/06/2019 4:55 AM LITIGATION ASSOCIATE 01/06/2019 5:08 AM LITIGATION ASSOCIATE Narrative [facility] - 01/06/2019 5:17 AM LITIGATION ASSOCIATE us Anita Gillespie MD LAB BLOOD ORDERABLES Final Result [facility] [address] Department [place] [address] * (ABNORMAL) Differential, auto (01/05/2019 3:54 PM LITIGATION ASSOCIATE) Neutrophil abs 7.3(H) 1.7 - 6.5 K/cumm [facility] Imm gran abs 0.3(H) 0.0 - 0.1 K/cumm [facility] Lymphocyte abs 2.1 0.8 - 3.3 K/cumm [facility] Monocyte abs 1.9(H) 0.2 - 0.8 K/cumm [facility] Eosinophil abs 0.1 0.0 - 0.5 K/cumm [facility] Basophil abs 0.1 0.0 - 0.1 K/cumm [facility] Neutrophil pct 61.8 % [facility] Comment: Interpretive Data Percent cell count reference ranges are not reported, since discordance with absolute values may lead to misinterpretation of CBC data. Current Interpretive Data was last revised on 2018. Imm gran pct 2.3 % [facility] Comment: Interpretive Data Percent cell count reference ranges are not reported, since discordance with absolute values may lead to misinterpretation of CBC data. Current Interpretive Data was last revised on 2018. Lymphocyte pct 17.9 % [facility] Comment: Interpretive Data Percent cell count reference ranges are not reported, since discordance with absolute values may lead to misinterpretation of CBC data. Current Interpretive Data was last revised on 2018. Monocyte pct 16.2 % [facility] Comment: Interpretive Data Percent cell count reference ranges are not reported, since discordance with absolute values may lead to misinterpretation of CBC data. Current Interpretive Data was last revised on 2018. Eosinophil pct 1.0 % [facility] Comment: Interpretive Data Percent cell count reference ranges are not reported, since discordance with absolute values may lead to misinterpretation of CBC data. Current Interpretive Data was last revised on 2018. Basophil pct 0.8 % [facility] Comment: Interpretive Data Percent cell count reference ranges are not reported, since discordance with absolute values may lead to misinterpretation of CBC data. Current Interpretive Data was last revised on 2018. Blood specimen (specimen) 01/05/2019 3:54 PM LITIGATION ASSOCIATE 01/05/2019 4:06 PM LITIGATION ASSOCIATE Narrative [facility] - 01/05/2019 4:20 PM LITIGATION ASSOCIATE Anita Gillespie MD LAB BLOOD ORDERABLES Final Result [facility] [address] Department [place] [address] * (ABNORMAL) CBC with auto differential (01/05/2019 3:54 PM LITIGATION ASSOCIATE) WBC 11.8(H) 3.8 - 9.9 K/cumm [facility] Hgb 15.6 13.0 - 17.5 g/dL [facility] Hct 44.9 38.9 - 50.3 % [facility] Plt 457(H) 150 - 400 K/cumm [facility] MPV 10.2 9.1 - 12.3 fL [facility] RBC 4.71 4.30 - 5.80 M/cumm [facility] MCV 95.3 81.3 - 96.4 fL [facility] MCH 33.1 27.1 - 33.3 pg [facility] MCHC 34.7 32.3 - 35.7 g/dL [facility] RDW CV 14.2 11.1 - 14.9 % [facility] RDW SD 49.7(H) 35.7 - 48.1 fL [facility] NRBC abs 0.00 0.00 - 0.01 K/cumm [facility] Blood specimen (specimen) 01/05/2019 3:54 PM LITIGATION ASSOCIATE 01/05/2019 4:06 PM LITIGATION ASSOCIATE Narrative [facility] - 01/05/2019 4:20 PM LITIGATION ASSOCIATE Anita Gillespie MD LAB BLOOD ORDERABLES Final Result Performing Organization Address [facility] de Phone Number [facility] [place] [address] * aPTT (01/05/2019 3:54 PM LITIGATION ASSOCIATE) aPTT 31.7 25.0 - 37.0 sec [facility] Comment: Interpretive Data Therapeutic heparin range:60.0 - 94.0 sec based on correlation with therapeutic heparin activity range of 0.3 -0.7 Units/mL. Current interpretive data was last revised on 2011. Blood specimen (specimen) 01/05/2019 3:54 PM LITIGATION ASSOCIATE 01/05/2019 4:05 PM LITIGATION ASSOCIATE Narrative [facility] - 01/05/2019 4:40 PM LITIGATION ASSOCIATE Result [facility] Anita Gillespie MD LAB BLOOD ORDERABLES Final Result Performing Organization Address [facility] de Phone Number [facility] [place] [address] * Protime-INR (01/05/2019 3:54 PM LITIGATION ASSOCIATE) PT 11.8 8.5 - 13.0 sec [facility] INR 1.10 0.80 - 1.21 [facility] Comment: Interpretive Data Inpatient therapeutic ranges* Atrial fibrillation ?2.0-3.0 INR Venous thrombo-embolism ?2.0-3.0 INR Bioprosthetic heart valve ?* Mechanical heart valve, bileaflet or tilting disk,aortic position ? 2.0-3.0 INR All other,or bileaflet or tilting disk, in mitral position ? 2.5-3.5 INR *See the pharmacy resource directory (PHRED) for an updated copy of the Tool Book at [email or web address] Current Interpretive Data was last revised 2012. Blood specimen (specimen) 01/05/2019 3:54 PM LITIGATION ASSOCIATE 01/05/2019 4:05 PM LITIGATION ASSOCIATE Narrative [facility] - 01/05/2019 4:40 PM LITIGATION ASSOCIATE us Anita Gillespie MD LAB BLOOD ORDERABLES Final Result [facility] [address] Department [place] [address] * (ABNORMAL) Manual Differential (01/05/2019 4:31 AM LITIGATION ASSOCIATE) Differential Manual [facility] Cells Counted 117 [facility] Neutrophil abs 8.0(H) 1.7 - 6.5 K/cumm [facility] Imm gran abs 0.2(H) 0.0 - 0.1 K/cumm [facility] Lymphocyte abs 2.2 0.8 - 3.3 K/cumm [facility] Monocyte abs 1.7(H) 0.2 - 0.8 K/cumm [facility] Eosinophil abs 0.2 0.0 - 0.5 K/cumm [facility] Neutrophil pct 65.0 % [facility] Comment: Interpretive Data Percent cell count reference ranges are not reported, since discordance with absolute values may lead to misinterpretation of CBC data. Current Interpretive Data was last revised on 2018. Lymphocyte pct 11.1 % [facility] Comment: Interpretive Data Percent cell count reference ranges are not reported, since discordance with absolute values may lead to misinterpretation of CBC data. Current Interpretive Data was last revised on 2018. Monocyte pct 13.7 % [facility] Comment: Interpretive Data Percent cell count reference ranges are not reported, since discordance with absolute values may lead to misinterpretation of CBC data. Current Interpretive Data was last revised on 2018. Eosinophil pct 1.7 % [facility] Comment: Interpretive Data Percent cell count reference ranges are not reported, since discordance with absolute values may lead to misinterpretation of CBC data. Current Interpretive Data was last revised on 2018. Metamyelocyte pct 0.9(H) 0.0 - 0.0 % [facility] Promyelocyte pct 0.8(H) 0.0 - 0.0 % [facility] Variant lymph pct 6.8(H) 0.0 - 0.0 % [facility] Blood specimen (specimen) 01/05/2019 4:31 AM LITIGATION ASSOCIATE 01/05/2019 5:32 AM LITIGATION ASSOCIATE Narrative [facility] - 01/05/2019 6:35 AM LITIGATION ASSOCIATE Anita Gillespie MD LAB BLOOD ORDERABLES Final Result [facility] [address] Department [place] [address] * (ABNORMAL) Vancomycin, trough Please draw 30 minutes before next vancomycin dose. (01/05/2019 4:31 AM LITIGATION ASSOCIATE) Vancomycin trough 4.7(L) 10.0 - 20.9 mcg/mL [facility] Blood specimen (specimen) 01/05/2019 4:31 AM LITIGATION ASSOCIATE 01/05/2019 5:28 AM LITIGATION ASSOCIATE Narrative [facility] - 01/05/2019 5:59 AM LITIGATION ASSOCIATE Please draw 30 minutes before next vancomycin dose. us Sherry Grande MD LAB BLOOD ORDERABLES F inal Result [facility] Department [place] [address] * (ABNORMAL) Basic metabolic panel (01/05/2019 4:31 AM LITIGATION ASSOCIATE) Pathologist [facility] [place] Sodium 140 135 - 145 mmol/L [facility] Potassium, pl 4.5 3.3 - 4.9 mmol/L [facility] Chloride 104 97 - 110 mmol/L [facility] CO2 25 22 - 32 mmol/L [facility] Anion gap 11 2 - 15 mmol/L [facility] BUN 10 8 - 25 mg/dL [facility] Creatinine 0.79(L) 0.80 - 1.30 mg/dL [facility] Glucose 83 70 - 199 mg/dL [facility] Comment: Interpretive Data Fasting glucose >/= 126 [...] 2017. Calcium 9.0 8.5 - 10.3 mg/dL [facility] Blood specimen (specimen) 01/05/2019 4:31 AM LITIGATION ASSOCIATE 01/05/2019 5:28 AM LITIGATION ASSOCIATE Narrative [facility] - 01/05/2019 5:56 AM LITIGATION ASSOCIATE us Anita Gillespie MD LAB BLOOD ORDERABLES Final Result [facility] Department [place] [address] * (ABNORMAL) CBC with auto differential (01/05/2019 4:31 AM LITIGATION ASSOCIATE) WBC 12.4(H) 3.8 - 9.9 K/cumm [facility] Hgb 13.8 13.0 - 17.5 g/dL [facility] Hct 39.9 38.9 - 50.3 % [facility] Plt 411(H) 150 - 400 K/cumm [facility] MPV 10.3 9.1 - 12.3 fL [facility] RBC 4.17(L) 4.30 - 5.80 M/cumm [facility] MCV 95.7 81.3 - 96.4 fL [facility] MCH 33.1 27.1 - 33.3 pg [facility] MCHC 34.6 32.3 - 35.7 g/dL [facility] RDW CV 14.2 11.1 - 14.9 % [facility] RDW SD 49.6(H) 35.7 - 48.1 fL [facility] NRBC abs 0.00 0.00 - 0.01 K/cumm [facility] Blood specimen (specimen) 01/05/2019 4:31 AM LITIGATION ASSOCIATE 01/05/2019 5:28 AM LITIGATION ASSOCIATE Narrative [facility] - 01/05/2019 6:35 AM LITIGATION ASSOCIATE us Anita Gillespie MD LAB BLOOD ORDERABLES Edite d Result - Final Performing Organization Address City/[facility]/ZIP Co de Phone Number [facility] [address] Department [place] [address] * Phosphorus (01/05/2019 4:31 AM LITIGATION ASSOCIATE) Pathologist [facility] [place] Phosphorus, pl 3.3 2.3 - 4.5 mg/dL [facility] Blood specimen (specimen) 01/05/2019 4:31 AM LITIGATION ASSOCIATE 01/05/2019 5:28 AM LITIGATION ASSOCIATE Narrative [facility] - 01/05/2019 6:21 AM LITIGATION ASSOCIATE us Anita Gillespie MD LAB BLOOD ORDERABLES Final Result [facility] [place] [address] * Lactate dehydrogenase (LD) (01/05/2019 4:31 AM LITIGATION ASSOCIATE) Lactate dehydrogenase (LDH) 232 100 - 250 Units/L [facility] Blood specimen (specimen) 01/05/2019 4:31 AM LITIGATION ASSOCIATE 01/05/2019 5:28 AM LITIGATION ASSOCIATE Narrative [facility] - 01/05/2019 5:56 AM LITIGATION ASSOCIATE us Anita Gillespie MD LAB BLOOD ORDERABLES Final Result Performing Organization Address City/[facility]/ZIP [place] [address] * Uric acid (01/05/2019 4:31 AM LITIGATION ASSOCIATE) Uric acid 3.5 3.0 - 8.0 mg/dL [facility] Blood specimen (specimen) 01/05/2019 4:31 AM LITIGATION ASSOCIATE 01/05/2019 5:28 AM LITIGATION ASSOCIATE Narrative [facility] - 01/05/2019 6:21 AM LITIGATION ASSOCIATE us Anita Gillespie MD LAB BLOOD ORDERABLES Final Result Performing Organization Address City/[facility]/ZIP Co de Phone Number [facility] [place] [address] * BIOPSY BONE MARROW (01/04/2019 4:53 PM LITIGATION ASSOCIATE) Fabi Castro NP - 01/04/2019 4:53 PM LITIGATION ASSOCIATE Fabi Kelsey NP ? 01/09/2019 ??4:35 PM Bone Marrow Biopsy Date/Time: 01/04/2019 11:00 AM Performed by: Fabi Kelsey NP Authorized by: Fabi Kelsey NP [place] Protocol: RN Notified of Procedure: yes ?? Informed consent: ??Risks, benefits, alternatives discussed Patient's stated name/ matches armband: ??Yes Allergies [...] be done; and correct patient positioning ?? Anesthesia (see MAR for exact dosage) Anesthesia method: ??Local infiltration Local anesthetic: ??Lidocaine 2% Hand hygiene performed: Yes ?? PPE (including eye protection) in place as appropriate to the procedure: Yes ?? Preparation: Patient was prepped using appropriate disinfectant and draped using sterile technique as needed ?? Procedure details: ?? Obtained one core specimen and 2 green tube aspirates and 2 pink tube aspirates Patient tolerance: ??Patient tolerated the procedure well with no immediate complications Post Procedure Debrief: All guidewires, needles, sponges or other items are accounted for: yes ?? Any special post procedure monitoring, testing or other considerations: yes (enter/request order) ?? All specimens identified, labeled and matched to patient identification: yes ?? Responsible green party for transporting specimen(s) to lab determined: yes ?? Fabi Solares NP IN CLINIC/BEDSIDE ORDERABLE S Edited Result - Final * Surgical pathology (01/04/2019 11:30 AM LITIGATION ASSOCIATE) 01/04/2019 11:3 0 AM LITIGATION ASSOCIATE 01/04/2019 1:03 PM LITIGATION ASSOCIATE Narrative 01/06/2019 4:35 PM LITIGATION ASSOCIATE EPIC results best viewed via link to PDF [facility] Yulisa [facility] Laboratory [place] [address] SURGICAL PATHOLOGY REPORT FINAL Patient Name: ?? BEKA NICHOLS Gender: ??M : ??1995 (Age: 23) Address: ??[address], [place] ??[address] Hospital #: ??[id number] Taken:01/04/2019 Received:01/04/2019 Reported: 01/06/2019 Patient Type: [facility] Inpatient ?? Service: Oncology Location: [facility] ??[address] Physician(s): ??Lucrecia Looney NP Diagnosis: Bone marrow, right posterior iliac crest, aspirate and core biopsy ? - Normocellular marrow with multilineage hematopoiesis - No morphologic or immunophenotypic evidence of lymphoproliferative disorder iag/01/06/2019 10:51 By this signature, I attest that the above diagnosis is based upon my personal examination of the slides(and/or other material indicated in the diagnosis). Mi Weinberg M.D., Ph.D. Report Electronically Reviewed and Signed Out By ??Mi Weinberg M.D., Ph.D. 01/06/2019 16:35:12 Microscopic Description and Comment: See attached bone marrow synoptic report for more information regarding peripheral blood smear, bone marrow aspirate smear, and core biopsy. Correlation with concurrent cytogenetic studies is suggested for complete evaluation. Flow cytometry performed on an adequate specimen reveals a polytypic B-cell population with no significant co-expression of CD5, CD10, and CD23. 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 ??Operative procedure: Bone marrow biopsy. Specimen(s) Received: A: Bone marrow biopsy, right posterior iliac crest B: Bone marrow, right aspirate for flow cytometry Gross Description: The specimen is received in a formalin filled container labeled with the patient's name and R iliac. It contains a 2.0 x 0.2 x 0.2 cm core of red-preston bony tissue. ??Labeled A1. EDTA decalcification. ??Jar 0. mab/01/04/2019 15:51 SADE Chapin ? CBC: ?Date: 3/6/19 ? WBCs: 17.0x10^3/mcl ? RBCs: 4.41x10^6/mcl ? Hemoglobin: 14.5g/dl ? Hematocrit: 42.2% ? Mean corpuscular volume (MCV): 95.7fl ? Red cell distribution width (RDW-SD): 48.4SD ? Platelets: 437x10^3/mcl ? Neutrophils: 62.7% ? Lymphocytes: 14.8% ? Monocytes: 19.9% ? Eosinophils: 0.6% ? Basophils: 0.5% ? Peripheral blood smear (Frazier-Giemsa): ?Red Blood Cells: Normocytic red blood cells with mild anisopoikilocytosis ? White Blood Cells: Leukocytosis with mild left-shift and absolute neutrophilia and monocytosis. No circulating blasts or atypical lymphocytes seen. ? Platelets: Increase in number with anisocytosis and some large forms ? Bone marrow aspirate smear (Frazier-Giemsa stain): Quality: ?Adequate Spicules: ?Present Marrow cellularity: ?Within normal limits Myeloid maturation: ?Left-shifted Erythroid maturation: ?Left-shifted Myeloid/Erythroid Ratio: ?Increased Megakaryocyte number: ?Increased Megakaryocytic maturation: ?Normal Lymphocytes: ?Normal Plasma cells: ?Normal Differential count: ?Total # of Cells Counted:200 ? Blasts: 3 ? Promyelocytes: 8 ? Myelocytes: 10 ? Metamyelocytes: 6 ? Bands: 14 ? Neutrophils: 14 ? Eosinophils: 5 ? Basophils: 0 ? Plasma cells: 0 ? Lymphocytes: 16 ? Monocytes: 6 ? Erythroids: 18 ? Bone marrow core biopsy (decalcified, H&E and Leder stains): ? Right, iliac crest Quality: ?Subcortical Length of evaluable marrow (millimeters): ?6 Cellularity: ?40% Myeloid maturation: ?Normal Erythroid maturation: ?Normal The Leder stain shows that the Myeloid/Erythroid Ratio is: ?Within normal limits Megakaryocyte number: ?Within normal limits Megakaryocytic maturation: ?Normal The Leder stain is used to assess for lymphoid aggregates: ?None Plasma cells: ?Normal Reticulin and Trichrome stains show: ?No significant fibrosis (MF-0) By this signature, I attest that the above diagnosis is based upon my personal examination of the slides(and/or other material). The performance characteristics of some immunohistochemical stains, fluorescence in-situ hybridization tests and immunophenotyping by flow cytometry cited in this report (if any) were determined by the Surgical Pathology Department at [facility] as part of an ongoing compliance quality performance analyst program and in compliance with federally mandated [...] determined by the Surgical Pathology Department of [facility]. ??It has not been cleared or approved by the U. S. Food and Drug Administration. IMAGES AND SCANNED DOCUMENTS, IF INCLUDED, ONLY VIEWABLE IN PDF VERSION OF REPORT us Lucrecia Looney [employer]UT[employer] SPECIALIST LAB PATHOLOGY ORDERABLES Fi nal Result * Flow Leukemia/Lymphoma Bone marrow (01/04/2019 11:30 AM LITIGATION ASSOCIATE) Leukemia/Lymp josé manuel Result See separate Surgical Pathology report. [facility] Bone marrow 01/04/2019 11:3 0 AM LITIGATION ASSOCIATE 01/04/2019 1:02 PM LITIGATION ASSOCIATE Narrative [facility] - 01/05/2019 8:07 AM LITIGATION ASSOCIATE us Anita Gillespie MD LAB PATHOLOGY ORDERABLES F inal Result Performing Organization Address City/[facility]/ZIP Co de Phone Number [facility] Department [place] [address] * Uric acid (01/04/2019 8:47 AM LITIGATION ASSOCIATE) Uric acid 3.0 3.0 - 8.0 mg/dL [facility] Blood specimen (specimen) 01/04/2019 8:47 AM LITIGATION ASSOCIATE 01/04/2019 9:15 AM LITIGATION ASSOCIATE Narrative [facility] - 01/04/2019 10:13 AM LITIGATION ASSOCIATE us Anita Gillespie MD LAB BLOOD ORDERABLES Final Result Performing Organization Address [facility] [place] [address] * Phosphorus (01/04/2019 8:47 AM LITIGATION ASSOCIATE) Phosphorus, pl 2.8 2.3 - 4.5 mg/dL [facility] Blood specimen (specimen) 01/04/2019 8:47 AM LITIGATION ASSOCIATE 01/04/2019 9:15 AM LITIGATION ASSOCIATE Narrative [facility] - 01/04/2019 10:13 AM LITIGATION ASSOCIATE us Anita Gillespie MD LAB BLOOD ORDERABLES Final Result Performing Organization Address [facility] Co de Phone Number [facility] [place] [address] * (ABNORMAL) Differential, auto (01/04/2019 8:47 AM LITIGATION ASSOCIATE) Neutrophil abs 10.7(H) 1.7 - 6.5 K/cumm [facility] Imm gran abs 0.2(H) 0.0 - 0.1 K/cumm [facility] Lymphocyte abs 2.5 0.8 - 3.3 K/cumm [facility] Monocyte abs 3.4(H) 0.2 - 0.8 K/cumm [facility] Eosinophil abs 0.1 0.0 - 0.5 K/cumm [facility] Basophil abs 0.1 0.0 - 0.1 K/cumm [facility] Neutrophil pct 62.7 % [facility] Comment: Interpretive Data Percent cell count reference ranges are not reported, since discordance with absolute values may lead to misinterpretation of CBC data. Current Interpretive Data was last revised on 2018. Imm gran pct 1.5 % [facility] Comment: Interpretive Data Percent cell count reference ranges are not reported, since discordance with absolute values may lead to misinterpretation of CBC data. Current Interpretive Data was last revised on 2018. Lymphocyte pct 14.8 % [facility] Comment: Interpretive Data Percent cell count reference ranges are not reported, since discordance with absolute values may lead to misinterpretation of CBC data. Current Interpretive Data was last revised on 2018. Monocyte pct 19.9 % [facility] Comment: Interpretive Data Percent cell count reference ranges are not reported, since discordance with absolute values may lead to misinterpretation of CBC data. Current Interpretive Data was last revised on 2018. Eosinophil pct 0.6 % [facility] Comment: Interpretive Data Percent cell count reference ranges are not reported, since discordance with absolute values may lead to misinterpretation of CBC data. Current Interpretive Data was last revised on 2018. Basophil pct 0.5 % [facility] Comment: Interpretive Data Percent cell count reference ranges are not reported, since discordance with absolute values may lead to misinterpretation of CBC data. Current Interpretive Data was last revised on 2018. Blood specimen (specimen) 01/04/2019 8:47 AM LITIGATION ASSOCIATE 01/04/2019 9:15 AM LITIGATION ASSOCIATE Narrative [facility] - 01/04/2019 9:32 AM LITIGATION ASSOCIATE us Malena Junior MD LAB BLOOD ORDERABLES Final Res ult [facility] Department [place] [address] * (ABNORMAL) CBC with auto differential (01/04/2019 8:47 AM LITIGATION ASSOCIATE) Pathologist [facility] [place] WBC 17.0(H) 3.8 - 9.9 K/cumm [facility] Hgb 14.5 13.0 - 17.5 g/dL [facility] Hct 42.2 38.9 - 50.3 % [facility] Plt 437(H) 150 - 400 K/cumm [facility] MPV 10.1 9.1 - 12.3 fL [facility] RBC 4.41 4.30 - 5.80 M/cumm [facility] MCV 95.7 81.3 - 96.4 fL [facility] MCH 32.9 27.1 - 33.3 pg [facility] MCHC 34.4 32.3 - 35.7 g/dL [facility] RDW CV 13.6 11.1 - 14.9 % [facility] RDW SD 48.4(H) 35.7 - 48.1 fL [facility] NRBC abs 0.00 0.00 - 0.01 K/cumm [facility] Blood specimen (specimen) 01/04/2019 8:47 AM LITIGATION ASSOCIATE 01/04/2019 9:15 AM LITIGATION ASSOCIATE Narrative [facility] - 01/04/2019 9:32 AM LITIGATION ASSOCIATE us Malena Junior MD LAB BLOOD ORDERABLES Final Res ult [facility] Department [place] [address] * (ABNORMAL) Basic metabolic panel (01/04/2019 8:47 AM LITIGATION ASSOCIATE) Pathologist [facility] [place] Sodium 138 135 - 145 mmol/L [facility] Potassium, pl 4.8 3.3 - 4.9 mmol/L [facility] Comment:Hemolyzed; (++); pot assium value may be falsely elevated by as much as 0.3 - 0.5 mmol/L. Suggest redraw and reanalysis. Chloride 103 97 - 110 mmol/L [facility] CO2 25 22 - 32 mmol/L [facility] Anion gap 10 2 - 15 mmol/L [facility] BUN 8 8 - 25 mg/dL [facility] Creatinine 0.75(L) 0.80 - 1.30 mg/dL [facility] Glucose 88 70 - 199 mg/dL [facility] Comment: Interpretive Data Fasting glucose >/= 126 [...] 9.4 8.5 - 10.3 mg/dL [facility] Blood specimen (specimen) 01/04/2019 8:47 AM LITIGATION ASSOCIATE 01/04/2019 9:15 AM LITIGATION ASSOCIATE Narrative [facility] - 01/04/2019 10:13 AM LITIGATION ASSOCIATE us Malena Junior MD LAB BLOOD ORDERABLES Final Res ult [facility] [address] [place] [address] * Tacrolimus level trough (01/04/2019 8:47 AM LITIGATION ASSOCIATE) [facility] Tacrolimus, trough 5.1 ng/mL [facility] Comment: Interpretive Data The therapeutic range for tacrolimus can vary by transplant organ type and sample timing but a trough range of 5 - 15 ng/mL is typical. Testing performed by liquid chromatography-tandem mass spectrometry (LC- MS/MS).This test was developed using an analyte specific reagent. Its performance characteristics were determined by the [facility] Laboratory in a manner consistent with CLIA requirements. This test has not been cleared or approved by the U.S. Food and Drug Administration. Current interpretive data was last revised on 2016. Blood specimen (specimen) 01/04/2019 8:47 AM LITIGATION ASSOCIATE 01/04/2019 9:15 AM LITIGATION ASSOCIATE Narrative [facility] - 01/04/2019 12:12 PM LITIGATION ASSOCIATE Anita Gillespie MD LAB BLOOD ORDERABLES Final Result Performing Organization Address [facility] Co de Phone Number [facility] Department [place] [address] * Aerobic culture and gram stain Sputum Lung (01/04/2019 2:51 AM LITIGATION ASSOCIATE) Direct Specimen Exam Stain: Few squamous epithelial cells seen. Abundant polymorphonuclear leukocytes seen. Moderate Mixed bacterial bret seen on gram stain. [facility] Report Final Report: Growth indicates upper respiratory bret. [facility] Organism GROWTH INDICATES UPPER RESPIRATORY BRET. [facility] Sputum (Lung) 01/04/2019 2:5 1 AM LITIGATION ASSOCIATE 01/04/2019 7:18 AM LITIGATION ASSOCIATE Narrative [facility] - 01/13/2019 3:26 PM CDT Testing performed by [facility] Microbiology Laboratory ([phone]) Specimens submitted from normally sterile body sites will have all bacterial morphotypes identified. ??Specimens that contain grossly mixed bret and/or are from body sites that are not normally sterile will be examined for Staphylococcus aureus, Pseudomonas aeruginosa, beta-hemolytic strep, vancomycin-resistant Enterococcus and fungus. ??If any of these are isolated, the organism will be reported. Current interpretive data was last revised on 2017. Anita Gillespie MD LAB MICROBIOLOGY - GENERAL ORDERABLES Final Result Performing Organization Address [facility] Co de Phone Number [facility] [address] Department [place] [address] * Cytogenetics/Genomics (01/04/2019 12:00 AM LITIGATION ASSOCIATE) 01/04/2019 01/04/2019 Narrative 01/27/2019 9:28 AM CDT [facility] results best viewed via link to PDF [facility] Department of Pathol [address] [place] [address] ? Patient Information Name: ??BEKA NICHOLS Sai Gender: ??M : ??1995 (Age: 23) Tissue: ??Bone Marrow w/ FISH Visit Information Hospital #: ? [id number] Facility: ? [facility] Service: ? [facility] Location: ? [facility] ??[address] Patient Type: ? [facility] Inpatient ? Specimen Information: Culture #: ??[id number] Date Collected: ??01/04/2019 Date Accessioned: ??01/04/2019 Date Ordered: ??01/04/2019 Physician(s): ? Lucrecia Looney NP ? Processing: ? Direct unstimulated - 24 hours unstimulated - 72 hours stimulated with a B-cell mitogen Indication: ? PTLD with concern for bone marrow involvement Specimen Quality: ? Adequate: ??FISH Adequate: ??Chromosome analysis CLINICAL REPORT CHROMOSOME ANALYSIS ?? Metaphases Counted: ??20 Banding Technique: ??GTW Colonies Counted: ?? Metaphases Analyzed: ??20 Additional Method: ?? FISH Number of Cultures: ??4 Metaphases Karyotyped: ??4 Banding Resolution: ??400 Subculture: ?? Karyotype: 46,XY[20].nuc lalo(MYCx2)[200] Diagnosis: ?? CHROMOSOME ANALYSIS: ? NO EVIDENCE OF CLONAL ABERRATIONS FISH FINDINGS: ? NO EVIDENCE OF MYC (8q) REARRANGEMENT; ? NO EVIDENCE OF TRISOMY OF MYC (8q) INTERPRETATION: No clonal cytogenetic aberrations were identified in metaphase cells analyzed from unstimulated bone marrow cultures and a culture stimulated with a B-cell mitogen. ??This normal result does not exclude a neoplastic proliferation. Small chromosome anomalies may not be detectable using the standard methods employed. ??Chromosome analysis was performed at a level of 400 bands or greater. Report Electronically Reviewed and Signed Out By Selma Reyes, PhD, [facility] ??Date Reported: ??01/27/2019 Marketing Production Manager, Cytogenomics and Molecular Pathology Dental Instrument Maker Professor, Division of Laboratory and Genomic Medicine FLUORESCENCE IN-SITU HYBRIDIZATION [FISH] ?? Karyotype: nuc lalo(MYCx2)[200] Diagnosis: FISH FINDINGS: ? NO EVIDENCE OF MYC (8q) REARRANGEMENT; ? NO EVIDENCE OF TRISOMY OF MYC (8q) INTERPRETATION: FISH evaluation for a MYC rearrangement was performed on nuclei with the LSI MYC Dual Color, Break Apart Rearrangement Probe ([employer] at 8q24 and is interpreted as NORMAL. ??No rearrangement was observed in 200/200 nuclei, which is within the normal range established for this probe in the Clinical Genomics Laboratory at [facility]. ??Up to 1% of cells in normal samples can show an apparent MYC rearrangement using this probe. ??A normal MYC FISH finding can result from the absence of a MYC rearrangement, from a variant MYC rearrangement or from an insufficient number of neoplastic cells in the specimen. The FISH findings must be interpreted within the context of the pathologic and clinical findings. Follow-up evaluation is recommended. Complete chromosome analysis is pending and will be reported separately. This test was developed and its performance characteristics determined by [facility]. It has not been cleared or approved by the FDA. The laboratory is regulated under CLIA as qualified to perform high-complexity testing. This test is used for clinical purposes. It should not be regarded as investigational or for research. ?? Report Electronically Reviewed and Signed Out By Selma Reyes, PhD Date Reported: ??01/05/2019 Marketing Production Manager, Cytogenomics and Molecular Pathology Dental Instrument Maker Professor, Division of Laboratory and Genomic Medicine Lucrecia E. Aayush [employer] SPECIALIST LAB GENETIC TESTING Final R esult * HIV 1/2 Antibody plus p24 Antigen (01/03/2019 4:27 PM LITIGATION ASSOCIATE) Pathologist [facility] HIV 1/2 ab + p24 ag Nonreactive Nonreactive [facility] Comment: Nonreactive for HIV-1 antigen and HIV-1/HIV-2 antibodies. No laboratory evidence of HIV infection. If acute HIV infection is suspected, consider testing for HIV-1 RNA. Blood specimen (specimen) 01/03/2019 4:27 PM LITIGATION ASSOCIATE 01/03/2019 4:54 PM LITIGATION ASSOCIATE Narrative [facility] - 01/03/2019 8:19 PM LITIGATION ASSOCIATE us Anita Gillespie MD LAB MICROBIOLOGY - GENERAL ORDERABLES Final Result [facility] [address] Department [place] [address] * (ABNORMAL) Differential, auto (01/03/2019 4:27 PM LITIGATION ASSOCIATE) Pathologist [facility] [place] Neutrophil abs 8.7(H) 1.7 - 6.5 K/cumm [facility] Imm gran abs 0.6(H) 0.0 - 0.1 K/cumm [facility] Lymphocyte abs 3.4(H) 0.8 - 3.3 K/cumm [facility] Monocyte abs 3.4(H) 0.2 - 0.8 K/cumm [facility] Eosinophil abs 0.1 0.0 - 0.5 K/cumm [facility] Basophil abs 0.1 0.0 - 0.1 K/cumm [facility] Neutrophil pct 53.5 % [facility] Comment: Interpretive Data Percent cell count reference ranges are not reported, since discordance with absolute values may lead to misinterpretation of CBC data. Current Interpretive Data was last revised on 2018. Imm gran pct 3.7 % [facility] Comment: Interpretive Data Percent cell count reference ranges are not reported, since discordance with absolute values may lead to misinterpretation of CBC data. Current Interpretive Data was last revised on 2018. Lymphocyte pct 20.8 % [facility] Comment: Interpretive Data Percent cell count reference ranges are not reported, since discordance with absolute values may lead to misinterpretation of CBC data. Current Interpretive Data was last revised on 2018. Monocyte pct 21.1 % [facility] Comment: Interpretive Data Percent cell count reference ranges are not reported, since discordance with absolute values may lead to misinterpretation of CBC data. Current Interpretive Data was last revised on 2018. Eosinophil pct 0.5 % [facility] Comment: Interpretive Data Percent cell count reference ranges are not reported, since discordance with absolute values may lead to misinterpretation of CBC data. Current Interpretive Data was last revised on 2018. Basophil pct 0.4 % [facility] Comment: Interpretive Data Percent cell count reference ranges are not reported, since discordance with absolute values may lead to misinterpretation of CBC data. Current Interpretive Data was last revised on 2018. Blood specimen (specimen) 01/03/2019 4:27 PM LITIGATION ASSOCIATE 01/03/2019 4:48 PM LITIGATION ASSOCIATE Narrative [facility] - 01/03/2019 4:56 PM LITIGATION ASSOCIATE Anita Gillespie MD LAB BLOOD ORDERABLES Final Result [facility] [address] Department [place] [address] * Blood culture Blood (01/03/2019 4:27 PM LITIGATION ASSOCIATE) Report Final Report: No growth [facility] Blood specimen (specimen) 01/03/2019 4:27 PM LITIGATION ASSOCIATE 01/03/2019 5:54 PM LITIGATION ASSOCIATE Narrative [facility] - 01/09/2019 7:00 AM CDT 1. Blood cultures are incubated for 5 [...] organism identification may be performed using the Alice[employer] Gram-Positive Blood Culture Assay. This assay detects microbial DNA in positive blood culture broth via hybridization of target DNA to capture oligonucleotides on a microarray. This assay has been cleared by the [place] Food and Drug Administration and its performance characteristics have been verified by the [facility] Microbiology Laboratory. 5. For questions about this culture, contact the Microbiology Laboratory at [phone]. Interpretive data was last revised on 2018. nAita Gillespie MD LAB MICROBIOLOGY - GENERAL ORDERABLES Final Result [facility] [address] Department [place] [address] * Blood culture Blood (01/03/2019 4:27 PM LITIGATION ASSOCIATE) Report Final Report: No growth [facility] Blood specimen (specimen) 01/03/2019 4:27 PM LITIGATION ASSOCIATE 01/03/2019 5:54 PM LITIGATION ASSOCIATE Narrative [facility] - 01/09/2019 7:00 AM [facility] 1. Blood cultures are incubated for 5 [...] performance characteristics have been verified by the [facility] Microbiology Laboratory. 5. For questions about this culture, contact the Microbiology Laboratory at [phone]. Interpretive data was last revised on 2018. Anita Gillespie MD LAB MICROBIOLOGY - GENERAL ORDERABLES Final Result Performing Organization Address [facility] Co de Phone Number [facility] [place] [address] * Nadine borrego virus (EBV) PCR, quantitative Blood (01/03/2019 4:27 PM LITIGATION ASSOCIATE) Report Final Report: Negative for Nadine Borrego Virus [facility] Organism NEGATIVE FOR NADINE BORREGO VIRUS [facility] Blood specimen (specimen) 01/03/2019 4:27 PM LITIGATION ASSOCIATE 01/03/2019 5:22 PM LITIGATION ASSOCIATE Marci [facility] - 01/06/2019 11:16 AM LITIGATION ASSOCIATE This test was developed using an analyte specific reagent. Its performance characteristics were determined by [facility] in a manner consistent with CLIA requirements. This test has not been cleared or approved by the U.S. Food and Drug Administration. This laboratory-developed, real-time PCR assay has a quantification range of 100 to 5,000,000 IU/mL (2.00 log IU/mL to 6.70 log IU/mL). Anita Gillespie MD LAB MICROBIOLOGY - GENERAL ORDERABLES Final Result Performing Organization Address [facility] Co de Phone Number [facility] [place] [address] * Cytomegalovirus (CMV) DNA PCR, quantitative Blood (01/03/2019 4:27 PM LITIGATION ASSOCIATE) [facility] CMV DNA Not Detected [facility] Comment: Interpretive Data: The quantifiable range of this assay is 137 IUnits/mL to 9,100,000 IUnits/mL (2.14 log IUnits/mL to 6.96 log IUnits/mL). Testing was performed by the [employer] AmpliPrep/NIA TaqMan CMV Test ([employer] Testing performed at [facility] Current interpretive data was last revised on 17. Blood specimen (specimen) 01/03/2019 4:27 PM LITIGATION ASSOCIATE 01/04/2019 10:48 AM LITIGATION ASSOCIATE Narrative [facility] - 01/04/2019 6:02 PM LITIGATION ASSOCIATE us Anita Gillespie MD LAB MICROBIOLOGY - GENERAL ORDERABLES Final Result [facility] [address] Department [place] [address] * (ABNORMAL) CBC with auto differential (01/03/2019 4:27 PM LITIGATION ASSOCIATE) [facility] WBC 16.3(H) 3.8 - 9.9 K/cumm [facility] Hgb 13.2 13.0 - 17.5 g/dL [facility] Hct 37.3(L) 38.9 - 50.3 % [facility] Plt 400 150 - 400 K/cumm [facility] MPV 10.1 9.1 - 12.3 fL [facility] RBC 3.94(L) 4.30 - 5.80 M/cumm [facility] MCV 94.7 81.3 - 96.4 fL [facility] MCH 33.5(H) 27.1 - 33.3 pg [facility] MCHC 35.4 32.3 - 35.7 g/dL [facility] RDW CV 13.7 11.1 - 14.9 % [facility] RDW SD 47.6 35.7 - 48.1 fL [facility] NRBC abs 0.00 0.00 - 0.01 K/cumm [facility] Blood specimen (specimen) 01/03/2019 4:27 PM LITIGATION ASSOCIATE 01/03/2019 4:48 PM LITIGATION ASSOCIATE Narrative [facility] - 01/03/2019 4:56 PM LITIGATION ASSOCIATE Anita Gillespie MD LAB BLOOD ORDERABLES Final Result Performing Organization Address [facility] de Phone Number [facility] [place] [address] * aPTT (01/03/2019 4:27 PM LITIGATION ASSOCIATE) aPTT 28.8 25.0 - 37.0 sec [facility] Comment: Interpretive Data Therapeutic heparin range:60.0 - 94.0 sec based on correlation with therapeutic heparin activity range of 0.3 -0.7 Units/mL. Current interpretive data was last revised on 2011. Blood specimen (specimen) 01/03/2019 4:27 PM LITIGATION ASSOCIATE 01/03/2019 4:42 PM LITIGATION ASSOCIATE Narrative [facility] - 01/03/2019 5:11 PM LITIGATION ASSOCIATE Result [facility] Anita Gillespie MD LAB BLOOD ORDERABLES Final Result Performing Organization Address [facility] [place] [address] * Protime-INR (01/03/2019 4:27 PM LITIGATION ASSOCIATE) PT 12.9 8.5 - 13.0 sec [facility] INR 1.20 0.80 - 1.21 [facility] Comment: Interpretive Data Inpatient therapeutic ranges* Atrial fibrillation ?2.0-3.0 INR Venous thrombo-embolism ?2.0-3.0 INR Bioprosthetic heart valve ?* Mechanical heart valve, bileaflet or tilting disk,aortic position ? 2.0-3.0 INR All other,or bileaflet or tilting disk, in mitral position ? 2.5-3.5 INR *See the pharmacy resource directory (PHRED) for an updated copy of the Tool Book at [email or web address] Current Interpretive Data was last revised 2012. Blood specimen (specimen) 01/03/2019 4:27 PM LITIGATION ASSOCIATE 01/03/2019 4:42 PM LITIGATION ASSOCIATE Narrative [facility] - 01/03/2019 5:11 PM LITIGATION ASSOCIATE Anita Gillespie MD LAB BLOOD ORDERABLES Final Result Performing Organization Address [facility] Co de Phone Number [facility] Department [place] [address] * Magnesium (01/03/2019 4:27 PM LITIGATION ASSOCIATE) [facility] Magnesium 1.6 1.4 - 2.5 mg/dL [facility] Blood specimen (specimen) 01/03/2019 4:27 PM LITIGATION ASSOCIATE 01/03/2019 4:49 PM LITIGATION ASSOCIATE Narrative [facility] - 01/03/2019 5:17 PM LITIGATION ASSOCIATE Anita Gillespie MD LAB BLOOD ORDERABLES Final Result Performing Organization Address [facility] Co de Phone Number [facility] Department [place] [address] * (ABNORMAL) Comprehensive metabolic panel (01/03/2019 4:27 PM LITIGATION ASSOCIATE) Sodium 135 135 - 145 mmol/L [facility] Potassium, pl 3.8 3.3 - 4.9 mmol/L [facility] Chloride 101 97 - 110 mmol/L [facility] CO2 23 22 - 32 mmol/L [facility] Anion gap 11 2 - 15 mmol/L [facility] BUN 10 8 - 25 mg/dL [facility] Creatinine 0.73(L) 0.80 - 1.30 mg/dL [facility] Glucose 108 70 - 199 mg/dL [facility] Comment: Interpretive Data Fasting glucose >/= 126 [...] 2017. Calcium 8.6 8.5 - 10.3 mg/dL [facility] Bilirubin, total 0.8 0.1 - 1.2 mg/dL [facility] Protein, pl 5.9(L) 6.5 - 8.5 g/dL [facility] Albumin 3.6 3.5 - 5.0 g/dL [facility] Alk phos 334(H) 40 - 130 Units/L [facility] ALT 59(H) 7 - 55 Units/L [facility] AST 31 10 - 50 Units/L [facility] Blood specimen (specimen) 01/03/2019 4:27 PM LITIGATION ASSOCIATE 01/03/2019 4:49 PM LITIGATION ASSOCIATE Narrative [facility] - 01/03/2019 5:37 PM LITIGATION ASSOCIATE us Anita Gillespie MD LAB BLOOD ORDERABLES Final Result [facility] [address] [place] [address] documented in this encounter Visit Diagnoses Diagnosis 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) History of liver transplant (CMS/HCC) (HCC) Liver replaced by transplant Pain at surgical site Immunocompromised patient (HCC) Healthcare-associated pneumonia Pneumonia, organism unspecified Cough with fever Diffuse lymphadenopathy Enlargement of lymph nodes [facility] current use of immunosuppressive drug documented in this encounter Admitting Diagnoses Diagnosis High grade B-cell lymphoma (HCC) documented in this encounter Administered Medications Inactive Administered Medications - up to 3 most recent administrations Medication Order MAR Action Action Date Dose Rate Site acetaminophen (TYLENOL) tablet 650 mg 650 mg, oral, Every 6 hours PRN, 1st line for pain, fever, fever greater than 38.3 C, Starting on Wed01/03/19 at 1456, Indications: Fever, PainIndications:Fever,Pain Given 01/04/2019 8:35 AM LITIGATION ASSOCIATE 650 mg Given 01/03/2019 4:06 PM LITIGATION ASSOCIATE 650 mg acetaminophen (TYLENOL) tablet 650 mg 650 mg, oral, Every 8 hours PRN, 1st line for pain, Starting on Brenda 01/05/19 at 0854 cefepime (MAXIPIME) 1000 mg/10 mL in sterile water (premix) 1,000 mg 1,000 mg, intravenous, at 20 mL/hr, Administer over 30 Minutes, Every 8 hours, First dose on Wed01/03/19 at 1530, Indications: Pneumonia, Community AcquiredIndications:Pneumonia, Community Acquired New Bag 01/05/2019 10:35 AM LITIGATION ASSOCIATE 1,000 mg 20 mL/hr New Bag 01/05/2019 12:12 AM LITIGATION ASSOCIATE 1,000 mg 20 mL/hr New Bag 01/04/2019 5:08 PM LITIGATION ASSOCIATE 1,000 mg 20 mL/hr fentaNYL (SUBLIMAZE) preservative free injection 50 mcg 50 mcg, intravenous, Every 10 min PRN, 2nd line for pain, Starting on Wed01/06/19 at 1007, Phase I, May administer 10 mintes after 2nd dose of 1st line analgesic agent for uncontrolled or increasing pain. Revert to 1st line dose if POSS of 3. Notify Anesthesiologist if total PACU dose reaches 100 mcg and pain score 5/10 or more., Indications: PainIndications:Pain Given 01/06/2019 10:16 AM LITIGATION ASSOCIATE 50 mcg guaiFENesin ER (MUCINEX) extended release tablet 600 mg 600 mg, oral, 2 times daily, First dose on Wed01/03/19 at 2100, Do not crush, chew, cut, dissolve, open or otherwise manipulate tablet/capsule. Given 01/05/2019 8:57 PM LITIGATION ASSOCIATE 600 mg Given 01/05/2019 10:45 AM LITIGATION ASSOCIATE 600 mg Given 01/04/2019 8:48 PM LITIGATION ASSOCIATE 600 mg heparin 100 unit/mL injection 500 Units 500 Units (5 mL), IV flush, Once, On Wed01/04/19 at 1000, For 1 dose, Indications: at bedside for bone marrow biopsyIndications:at bedside for bone marrow biopsy Given 01/04/2019 11:30 AM LITIGATION ASSOCIATE 500 Units HYDROmorphone (DILAUDID) 1 mg/mL injection - ADS Override Pull Starting on Wed01/04/19 at 1025, For 1 dose, YASMIN ALONSO: cabinet override HYDROmorphone (DILAUDID) injection 1 mg 1 mg, intravenous, Administer over 2 Minutes, Once, On Wed01/04/19 at 1000, For 1 dose, 30 minutes prior to bone marrow biopsy, CLUTCH SPECIALIST will call you and tell when to give this Given 01/04/2019 10:27 AM LITIGATION ASSOCIATE 1 mg HYDROmorphone (DILAUDID) injection 1 mg 1 mg, intravenous, Administer over 2 Minutes, Once, On Wed01/04/19 at 1345, For 1 dose Given 01/04/2019 11:30 AM LITIGATION ASSOCIATE Lactated Ringer's (LR) bolus 1,000 mL 1,000 mL, intravenous, at 1,000 mL/hr, Administer over 1 Hours, Once, On Wed01/03/19 at 1915, For 1 dose New Bag 01/03/2019 6:54 PM LITIGATION ASSOCIATE 1,000 mL 1000 mL/hr levoFLOXacin (LEVAQUIN) tablet 750 mg 750 mg, oral, Daily (early AM), First dose on Wed01/05/19 at 1215, For 5 doses, Give 2 hrs before or 2 hrs after MVI, antacids, or other products containing sucralfate, magnesium, aluminum, iron, or zinc. May be taken without regard to meals., Indications: Pneumonia, Community AcquiredIndications:Pneumonia, Community Acquired Given 01/06/2019 6:20 AM LITIGATION ASSOCIATE 750 mg Given 01/05/2019 4:36 PM LITIGATION ASSOCIATE 750 mg lidocaine (XYLOCAINE) 20 mg/mL (2 %) injection 15 mL 15 mL, subcutaneous, Once, On Wed01/04/19 at 1000, For 1 dose, To be at bedside for bone marrow biopsy, Indications: Administration of Local AnesthesiaIndications:Administrat ion of Local Anesthesia Given 01/04/2019 11:30 AM LITIGATION ASSOCIATE 15 mL Other (Comment) LORazepam (ATIVAN) injection 1 mg 1 mg, intravenous, Once, On Wed01/04/19 at 1000, For 1 dose, 30 minutes prior to bone marrow biopsy, CLUTCH SPECIALIST will call you and tell when to give this For IV administration, do not exceed a rate of 2 mg/minute Given 01/04/2019 10:28 AM LITIGATION ASSOCIATE 1 mg morphine 2 mg/mL injection - ADS Override Pull Starting on Wed01/06/19 at 1309, For 1 dose, JARAD CRESPO: cabinet override Given 01/06/2019 1:11 PM LITIGATION ASSOCIATE 2 mg morphine injection 1 mg 1 mg, intravenous, Administer over 4 Minutes, Once, On Wed01/04/19 at 2230, For 1 dose Given 01/04/2019 10:17 PM LITIGATION ASSOCIATE 1 mg morphine injection 1 mg 1 mg, intravenous, Administer over 4 Minutes, Once, On Wed01/05/19 at 0615, For 1 dose Given 01/05/2019 5:59 AM LITIGATION ASSOCIATE 1 mg morphine injection 2 mg 2 mg, intravenous, Administer over 4 Minutes, Every 4 hours PRN, breakthrough pain, Starting on Wed01/06/19 at 1601, For 3 doses ondansetron (ZOFRAN) injection 4 mg 4 mg, intravenous, Administer over 2 Minutes, Every 8 hours PRN, nausea, vomiting, Starting on Wed01/04/19 at 1537 Given 01/06/2019 9:37 AM LITIGATION ASSOCIATE 4 mg Given 01/04/2019 5:02 PM LITIGATION ASSOCIATE 4 mg ondansetron ODT (ZOFRAN-ODT) disintegrating tablet 4 mg 4 mg, sublingual, 4 times daily PRN, nausea, vomiting, Starting on Wed01/06/19 at 1601 oxyCODONE (ROXICODONE) tablet 5 mg 5 mg, oral, Every 4 hours PRN, for pain, Starting on Wed01/04/19 at 1814, For 2 doses, Indications: PainIndications:Pain Given 01/05/2019 4:23 AM LITIGATION ASSOCIATE 5 mg Given 01/04/2019 6:23 PM LITIGATION ASSOCIATE 5 mg oxyCODONE (ROXICODONE) tablet 5 mg 5 mg, oral, Once, On Wed01/04/19 at 2100, For 1 dose, Indications: PainIndications:Pain Given 01/04/2019 8:48 PM LITIGATION ASSOCIATE 5 mg oxyCODONE (ROXICODONE) tablet 5 mg 5 mg, oral, 4 times daily PRN, 2nd line for pain, Starting on Wed01/05/19 at 0853, Indications: PainIndications:Pain Given 01/06/2019 4:15 PM LITIGATION ASSOCIATE 5 mg Given 01/05/2019 8:58 PM LITIGATION ASSOCIATE 5 mg polyvinyl alcohol-povidone (REFRESH CLASSIC) 1.4-0.6 % ophthalmic solution 1 drop 1 drop, each eye, 3 times daily PRN, dry eyes, Starting on Wed01/03/19 at 1842 Given 01/03/2019 8:06 PM LITIGATION ASSOCIATE 1 drop sodium chloride 0.9% 0.9% infusion - ADS Override Pull Starting on Wed01/04/19 at 1621, For 1 dose, Created by cabinet override New Bag 01/04/2019 4:30 PM LITIGATION ASSOCIATE sodium chloride 0.9% 0.9% infusion - ADS Override Pull Starting on Wed01/04/19 at 1700, For 1 dose, Created by cabinet override New Bag 01/04/2019 5:02 PM LITIGATION ASSOCIATE 500 mL sodium chloride 0.9% flush 0.5-20 mL 0.5-20 mL, intra-catheter, Every 8 hours scheduled, First dose on Wed01/03/19 at 1530, Flush volume based on line type and size. Given 01/06/2019 6:21 AM LITIGATION ASSOCIATE 10 mL Given 01/05/2019 8:59 PM LITIGATION ASSOCIATE 10 mL Given 01/05/2019 6:31 AM LITIGATION ASSOCIATE 10 mL sodium chloride 0.9% flush 0.5-20 mL 0.5-20 mL, intra-catheter, As needed, line care, Starting on Wed01/03/19 at 1455, Flush volume based on line type and size. Flush before and after each use. tacrolimus (PROGRAF) capsule 0.5 mg 0.5 mg, oral, 2 times daily, First dose on Wed01/03/19 at 2100, Avoid grapefruit juice Given 01/05/2019 8:57 PM LITIGATION ASSOCIATE 0 .5 mg Given 01/05/2019 10:35 AM LITIGATION ASSOCIATE 0.5 mg Given 01/04/2019 8:48 PM LITIGATION ASSOCIATE 0.5 mg valGANciclovir (VALCYTE) tablet 450 mg 450 mg, oral, 2 times daily, First dose on Wed01/03/19 at 2100, Indications: CMV VIremiaIndications:CMV VIremia Given 01/05/2019 8:58 PM LITIGATION ASSOCIATE 450 mg Given 01/05/2019 10:35 AM LITIGATION ASSOCIATE 450 mg Given 01/04/2019 8:48 PM LITIGATION ASSOCIATE 450 mg vancomycin 1000 mg/200 mL in dextrose 5% (premix) 1,000 mg 1,000 mg, intravenous, Administer over 60 Minutes, Every 12 hours, First dose on Wed01/03/19 at 1530, Indications: Pneumonia, Community AcquiredIndications:Pneumonia, Community Acquired New Bag 01/05/2019 5:02 AM LITIGATION ASSOCIATE 1,000 mg New Bag 01/04/2019 6:11 PM LITIGATION ASSOCIATE 1,000 mg New Bag 01/04/2019 5:18 AM LITIGATION ASSOCIATE 1,000 mg documented in this encounter Discontinued Medications Medication Sig Discontinue Reason Start Date End Da te amoxicillin-clavulanate (AUGMENTIN) 875-125 mg per tabletIndications:Upper Respiratory/HEENT Infection Take 1 tablet by mouth 2 (two) times a day for 14 days Indications: Upper Respiratory/HEENT Infection. 01/03/2019 01/03/2019 oxyCODONE (ROXICODONE) 5 mg immediate release tabletIndications:Pain Take 1 tablet (5 mg total) by mouth every 6 (six) hours as needed for pain 01/06/2019 01/06/2019 senna-docusate (PERICOLACE) 8.6-50 mgIndications:constipati on,Take it as long as you are taking oxycodone Take 2 tablets by mouth daily Reorder 01/06/2019 01/06/2019 documented as of this encounter Active and Recently Administered Medications Times are shown in LITIGATION ASSOCIATE. Scheduled Medication Order 01/04/2019 01/05/2019 01/06/2019 cefepime (MAXIPIME) 1000 mg/10 mL in sterile water (premix) 1,000 mg (CANCELED) 1,000 mg, intravenous, at 20 mL/hr, Administer over 30 Minutes, Every 8 hours, First dose on Wed01/03/19 at 1530, Indications: Pneumonia, Community Acquired 0835 (New Bag - Provider: Erica Gifford RN)0905 (Stopped - Provider: Erica Gifford RN)1626 (Stopped - Provider: Kristine Malave, SHAILESH - Comment: IV went bad)1627 (Stopped - Provider: Kristine Malave, RN)1708 (New Bag - Provider: Kristine Malave, RN)1738 (Stopped - Provider: Kristine Malave, RN) 0012 (New Bag - Provider: Niurka Hanson, SHAILESH)0045 (Stopped - Provider: Niurka Hanson, SHAILESH)1035 (New Bag - Provider: Simin Crespo, SHAILESH)1056 (Stopped - Provider: Simin Crespo, SHAILESH) guaiFENesin ER (MUCINEX) extended release tablet 600 mg 600 mg, oral, 2 times daily, First dose on Wed01/03/19 at 2100, Do not crush, chew, cut, dissolve, open or otherwise manipulate tablet/capsule. 0827 (Given - Provider: Erica Gifford RN)2048 (Given - Provider: Niurka Hanson, SHAILESH) 1045 (Given - Provider: Simin Crespo, SHAILESH)2057 (Given - Provider: Niurka Hanson, SHAILESH) 0639 (MAR Hold - Provider: Automatic Transfer Provider - Reason: Patient not available)0900 (Dose Auto Held - Provider: Automatic Transfer Provider)1303 (MAR Unhold - Provider: Automatic Transfer Provider) heparin 100 unit/mL injection 500 Units (COMPLETED) 500 Units (5 mL), IV flush, Once, On Wed01/04/19 at 1000, For 1 dose, Indications: at bedside for bone marrow biopsy 1130 (Given - Provider: Yasmin Alonso, SHAILESH) HYDROmorphone (DILAUDID) injection 1 mg (COMPLETED) 1 mg, intravenous, Administer over 2 Minutes, Once, On Wed01/04/19 at 1000, For 1 dose, 30 minutes prior to bone marrow biopsy, CLUTCH SPECIALIST will call you and tell when to give this 1027 (Given - Provider: Yasmin Alonso, SHAILESH) HYDROmorphone (DILAUDID) injection 1 mg (COMPLETED) 1 mg, intravenous, Administer over 2 Minutes, Once, On Wed01/04/19 at 1345, For 1 dose 1130 (Given - Provider: Yasmin Alonso RN) levoFLOXacin (LEVAQUIN) tablet 750 mg 750 mg, oral, Daily (early AM), First dose on Brenda 01/05/19 at 1215, For 5 doses, Give 2 hrs before or 2 hrs after MVI, antacids, or other products containing sucralfate, magnesium, aluminum, iron, or zinc. May be taken without regard to meals., Indications: Pneumonia, Community Acquired 1636 (Given - Provider: Vero Elliott RN - Comment: Not given by nurse prior to my shift beginning at 1500) 0620 (Given - Provider: Niurka Hanson, SHAILESH)0639 (DEC Hold - Provider: Automatic Transfer Provider - Reason: Patient not available)1303 (DEC Unhold - Provider: Automatic Transfer Provider) lidocaine (XYLOCAINE) 20 mg/mL (2 %) injection 15 mL (COMPLETED) 15 mL, subcutaneous, Once, On Wed01/04/19 at 1000, For 1 dose, To be at bedside for bone marrow biopsy, Indications: Administration of Local Anesthesia 1130 (Given - Provider: Yasmin Alonso RN - Comment: back) LORazepam (ATIVAN) injection 1 mg (COMPLETED) 1 mg, intravenous, Once, On Wed01/04/19 at 1000, For 1 dose, 30 minutes prior to bone marrow biopsy, CLUTCH SPECIALIST will call you and tell when to give this For IV administration, do not exceed a rate of 2 mg/minute 1028 (Given - Provider: Yasmin Alonso RN) morphine injection 1 mg (COMPLETED) 1 mg, intravenous, Administer over 4 Minutes, Once, On Wed01/04/19 at 2230, For 1 dose 2217 (Given - Provider: Niurka Hanson, SHAILESH) morphine injection 1 mg (COMPLETED) 1 mg, intravenous, Administer over 4 Minutes, Once, On Wed01/05/19 at 0615, For 1 dose 0559 (Given - Provider: Niurka Hanson RN) oxyCODONE (ROXICODONE) tablet 5 mg (COMPLETED) 5 mg, oral, Once, On Wed01/04/19 at 2100, For 1 dose, Indications: Pain 2048 (Given - Provider: Niurka Hanson RN) sodium chloride 0.9% flush 0.5-20 mL 0.5-20 mL, intra-catheter, Every 8 hours scheduled, First dose on Wed01/03/19 at 1530, Flush volume based on line type and size. 0827 (Given - Provider: Erica Gifford RN)1409 (Given - Provider: Erica Gifford RN)2217 (Given - Provider: Niurka Hanson RN) 0631 (Given - Provider: Niurka Hanson RN)1603 (Not Given - Provider: Vero Elliott RN - Reason: Other)2058 (Given - Provider: Niurka Hanson RN) 0621 (Given - Provider: Niurka Hanson RN)0639 (MAR Hold - Provider: Automatic Transfer Provider - Reason: Patient not available)1303 (MAR Unhold - Provider: Automatic Transfer Provider)1400 (Due - Provider: Automatic Transfer Provider) tacrolimus (PROGRAF) capsule 0.5 mg 0.5 mg, oral, 2 times daily, First dose on Wed01/03/19 at 2100, Avoid grapefruit juice 08 (Given - Provider: Erica Gifford RN)2047 (Given - Provider: Niurka Hanson RN) 1035 (Given - Provider: Simin Crespo RN)2056 (Given - Provider: Niurka Hanson RN) 0639 (MAR Hold - Provider: Automatic Transfer Provider - Reason: Patient not available)0900 (Dose Auto Held - Provider: Automatic Transfer Provider)1303 (MAR Unhold - Provider: Automatic Transfer Provider) valGANciclovir (VALCYTE) tablet 450 mg 450 mg, oral, 2 times daily, First dose on Wed01/03/19 at 2100, Indications: CMV VIremia 0827 (Given - Provider: Erica Gifford RN)2047 (Given - Provider: Niurka Hanson RN) 103 (Given - Provider: Simin Crespo RN)2057 (Given - Provider: Niurka Hanson RN) 0639 (MAR Hold - Provider: Automatic Transfer Provider - Reason: Patient not available)0900 (Dose Auto Held - Provider: Automatic Transfer Provider)1303 (DEC Unhold - Provider: Automatic Transfer Provider) vancomycin 1000 mg/200 mL in dextrose 5% (premix) 1,000 mg (CANCELED) 1,000 mg, intravenous, Administer over 60 Minutes, Every 12 hours, First dose on Wed01/03/19 at 1530, Indications: Pneumonia, Community Acquired 0518 (New Bag - Provider: Niurka Hanson RN)0629 (Stopped - Provider: Niurka Hanson RN)1811 (New Bag - Provider: Kristine Malave RN)1920 (Stopped - Provider: Niurka Hanson RN) 0502 (New Bag - Provider: Niurka Hanson RN)0627 (Stopped - Provider: Niurka Hanson RN) Continuous Medication Order 01/04/2019 01/05/2019 01/06/2019 Lactated Ringer's (LR) infusion 125 mL/hr, intravenous, Continuous, Starting on Wed01/06/19 at 1045, Phase I 1045 (Due) PRN Medication Order 01/04/2019 01/05/2019 01/06/2019 acetaminophen (TYLENOL) tablet 650 mg (CANCELED) 650 mg, oral, Every 6 hours PRN, 1st line for pain, fever, fever greater than 38.3 C, Starting on Wed01/03/19 at 1456, Indications: Fever, Pain 0835 (Given - Provider: Erica Gifford RN) acetaminophen (TYLENOL) tablet 650 mg 650 mg, oral, Every 8 hours PRN, 1st line for pain, Starting on Brenda 01/05/19 at 0854 1603 (Not Given - Provider: Vero Elliott RN - Reason: Other - Comment: Not given by RN prior to my shift beginning at 1500.) 0639 (DEC Hold - Provider: Automatic Transfer Provider - Reason: Patient not available)1303 (DEC Unhold - Provider: Automatic Transfer Provider) fentaNYL (SUBLIMAZE) preservative free injection 50 mcg (CANCELED) 50 mcg, intravenous, Every 10 min PRN, 2nd line for pain, Starting on Wed01/06/19 at 1007, Phase I, May administer 10 mintes after 2nd dose of 1st line analgesic agent for uncontrolled or increasing pain. Revert to 1st line dose if POSS of 3. Notify Anesthesiologist if total PACU dose reaches 100 mcg and pain score 5/10 or more., Indications: Pain 1016 (Given - Provider: Flory More RN) lidocaine-EPINEPHrine (XYLOCAINE with EPI) 1 %-1:100,000 injection (CANCELED) As needed, Starting on Wed01/06/19 at 0813, Intra-Op, Indications: Administration of Local Anesthesia 0813 (Given - Provider: Bebe Valdes MD) morphine injection 2 mg 2 mg, intravenous, Administer over 4 Minutes, Every 4 hours PRN, breakthrough pain, Starting on Wed01/06/19 at 1601, For 3 doses ondansetron (ZOFRAN) injection 4 mg (CANCELED) 4 mg, intravenous, Administer over 2 Minutes, Every 8 hours PRN, nausea, vomiting, Starting on Wed01/04/19 at 1537 1702 (Given - Provider: Kristine Malave RN) 0639 (DEC Hold - Provider: Automatic Transfer Provider - Reason: Patient not available)0937 (Given - Provider: Moni Hernandez CRNA)1303 (DEC Unhold - Provider: Automatic Transfer Provider) ondansetron ODT (ZOFRAN-ODT) disintegrating tablet 4 mg 4 mg, sublingual, 4 times daily PRN, nausea, vomiting, Starting on Wed01/06/19 at 1601 oxyCODONE (ROXICODONE) tablet 5 mg (COMPLETED) 5 mg, oral, Every 4 hours PRN, for pain, Starting on Wed01/04/19 at 1814, For 2 doses, Indications: Pain 1823 (Given - Provider: Kristine Malave RN) 0423 (Given - Provider: Niurka Hanson RN) oxyCODONE (ROXICODONE) tablet 5 mg 5 mg, oral, 4 times daily PRN, 2nd line for pain, Starting on Brenda 01/05/19 at 0853, Indications: Pain 1604 (Not Given - Provider: Vero Elliott RN - Reason: Other - Comment: Not given by RN prior to my shift beginning at 1500.)2058 (Given - Provider: Niurka Hanson, SHAILESH) 0639 ([facility] Hold - Provider: Automatic Transfer Provider - Reason: Patient not available)1303 ([facility] Unhold - Provider: Automatic Transfer Provider)1615 (Given - Provider: Simin Crespo RN) polyvinyl alcohol-povidone (REFRESH CLASSIC) 1.4-0.6 % ophthalmic solution 1 drop 1 drop, each eye, 3 times daily PRN, dry eyes, Starting on Wed01/03/19 at 1842 0639 ([facility] Hold - Provider: Automatic Transfer Provider - Reason: Patient not available)1303 ([facility] Unhold - Provider: Automatic Transfer Provider) sodium chloride 0.9 % irrigation (CANCELED) As needed, Starting on Wed01/06/19 at 0701, Intra-Op 0701 (Given - Provider: Bebe Valdes MD) sodium chloride 0.9% flush 0.5-20 mL 0.5-20 mL, intra-catheter, As needed, line care, Starting on Wed01/03/19 at 1455, Flush volume based on line type and size. Flush before and after each use. 0639 ([facility] Hold - Provider: Automatic Transfer Provider - Reason: Patient not available)1303 ([facility] Unhold - Provider: Automatic Transfer Provider) No Frequency Medication Order 01/04/2019 01/05/2019 01/06/2019 morphine 2 mg/mL injection - ADS Override Pull (COMPLETED) Starting on Wed01/06/19 at 1309, For 1 dose, JARAD CRESPO: cabinet override 1311 (Given - Provid er: Simin Crespo RN) sodium chloride 0.9% 0.9% infusion - ADS Override Pull (COMPLETED) Starting on Wed01/04/19 at 1621, For 1 dose, Created by cabinet override 1630 (New Bag - Provider: Kristine Malave, SHAILESH)1709 (Stopped - Provider: Kristine Malave, SHAILESH)1826 (Stopped - Provider: Kristine Malave, RN) sodium chloride 0.9% 0.9% infusion - ADS Override Pull (COMPLETED) Starting on Wed01/04/19 at 1700, For 1 dose, Created by cabinet override 1702 (New Bag - Provider: Kristine Malave RN) documented in this encounter Orders Medications Ordered That John ht Not Have Been Administered Count Last Ordered Date First Ordered Date acetaminophen (TYLENOL) tablet 1,000 mg 1 0 01/06/2019 Lactated Ringer's (LR) infusion 1 9 lidocaine-EPINEPHrine (XYLOC CECILIA with EPI) 1 %-1:100,000 injection 1 01/06/2019 metoclopramide (REGLAN) injection 10 mg 1 0 01/06/2019 morphine injection 2 mg 4 01/06/2019 naloxone (NARCAN) 0.4 mg/mL injection 0.04-0.4 mg 1 01/06/2019 ondansetron (ZOFRAN) injection 4 mg 1 01/06 ondansetron ODT (ZOFRAN-ODT) disintegrating tablet 4 mg 1 01/06/2019 sodium chloride 0.9 % irrigation 1 01/07/20 19 acetaminophen (TYLENOL) tablet 500 mg 1 05/2019 acetaminophen (TYLENOL) tablet 650 mg 2 05/201901/04/2019 enoxaparin (LOVENOX) syringe 40 mg 1 2018 sodium chloride 0.9% flush 0.5-20 mL 1 03/2019 sodium chloride 7 % nebulize r solution - ADS Override Pull 1 01/03/2019 EKG Orders Without Results Count Last Ordered D ate First Ordered Date ECG 12-LEAD 1 01/05/2019 Nursing Count Last Ordered Date First Orde red Date WEIGH PATIENT 1 01/03/2019 Consult Count Last Ordered Date First Orde red Date IP CONSULT TO NUTRITION SERVICES 1 01/04/20 19 Admission Count Last Ordered Date First Orde red Date ASSIGN PATIENT STATUS 1 01/03/2019 Case Request Count Last Ordered Date First Orde red Date CASE REQUEST OPERATING ROOM 1 01/03/2019 documented in this encounter Care Teams Final Inspector And Tester Relationship Specialty Start Date End Date Kali Cruz MD [address] [place] [address] PCP - General 04/09/17 03/21/19 Munira Rick RN [address] [facility] [address] [place] [address] Drawing Instructor 04/01/18 documented as of this encounter
--- OUTSIDE RECORDS SUMMARY | 2024-10-28 06:26 | XMS_ITS | Encounter Summary ---
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) Procedures CT Neck Soft Tissue W Contrast Anita Gillespie MD Phone: tel: fax: [address] [address] Referral ID Status Reason Start Date Expiration Date V isits Requested Visits Authorized [id number] Canceled 12/22/2018 07/02/2020 1 1 CAL DIRECTOR OCCUPATIONAL HEALTH * Diagnostic Imaging (Routine) - Closed Specialty Diagnoses / Procedures Referred By Contac t Referred To Contact Radiology Diagnoses 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) Procedures CT Chest Abdomen Pelvis W Contrast CT Neck Chest Abdomen Pelvis W Contrast Anita Gillespie MD Phone: tel: fax: [address] [address] Referral ID Status Reason Start Date Expiration Date Visits Re quested Visits Authorized [id number] Closed 09/28/2018 04/08/2020 1 1 CAL DIRECTOR OCCUPATIONAL HEALTH Reason for Visit * Diagnostic Imaging (Routine) - Closed Specialty Diagnoses / Procedures Referred By Contac t Referred To Contact Radiology Diagnoses 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) Procedures CT Chest Abdomen Pelvis W Contrast CT Neck Chest Abdomen Pelvis W Contrast Anita Gillespie MD Phone: tel: fax: [address] [address] Referral ID Status Reason Start Date Expiration Date Visits Re quested Visits Authorized [id number] Closed 09/28/2018 04/08/2020 1 1 Encounter Details Date Type Department Care Team (Latest Contact Info) Description 12/28/2018 6:36 AM MEDICAL DIRECTOR OCCUPATIONAL HEALTH - 12/28/2018 11:59 PM MEDICAL DIRECTOR OCCUPATIONAL HEALTH Hospital Encounter [facility] [address] [place] [address] Anita Gillespie MD [address] [facility] [address] [place] [address] PTLD after liver transplantation (CMS/HCC) Discharge Disposition: Discharge to home or self care Social History Tobacco Use Types Packs/Day Years Used Date Smoking Tobacco: Never Smokeless Tobacco: Never Sex and Gender Information Value Date Recorded Sex Assigned at Not on file Legal Sex Male 6:28 AM MEDICAL DIRECTOR OCCUPATIONAL HEALTH Gender Identity Not on file Sexual Orientation Straight 08/22/2021 9: 23 AM CDT documented as of this encounter Medications at Time of Discharge tacrolimus (PROGRAF) 0.5 mg capsuleIndication s:History of liver transplant (CMS/HCC) (HCC) Take 1 capsule (0.5 mg total) by mouth 2 (two) times a day. 180 capsule 3 11/29/2018 02/13/2019 valGANciclovir (VALCYTE) 450 mg tabletIndications :CMV VIremia Take 1 tablet (450 mg total) by mouth 2 (two) times a day. 60 tablet 1 12/06/2018 02/13/2019 documented as of this encounter Discharge Disposition [...] ZAHRA, Read ZAHRA (Appt Today, Awaiting Results) 12/28/2018 7:14 AM MEDICAL DIRECTOR OCCUPATIONAL HEALTH PTLD after liver transplantation (CMS/HCC) CT SOFT TISSUE NECK W CONTRAST Schedule ZAHRA, Read ZAHRA (Appt Today, Awaiting Results) 12/28/2018 7:14 AM MEDICAL DIRECTOR OCCUPATIONAL HEALTH PTLD after liver transplantation (CMS/HCC) documented in this encounter Results * CT Neck Soft Tissue W Contrast (12/28/2018 7:14 AM MEDICAL DIRECTOR OCCUPATIONAL HEALTH) Anatomical Region Laterality Modality Head and Neck N/A Computed Tomogra phy 12/28/2018 11:2 2 AM MEDICAL DIRECTOR OCCUPATIONAL HEALTH Impressions 12/28/2018 11:54 AM MEDICAL DIRECTOR OCCUPATIONAL HEALTH 1. ??New diffuse cervical and supraclavicular lymphadenopathy in this patient with known PTLD 2. ??Severe, worsened chronic sinusitis without evidence of extrasinus disease Dictated by: Nina Ornelas M.D. Electronically signed by: Jaime Covarrubias 12/28/2018 11:54 AM MEDICAL DIRECTOR OCCUPATIONAL HEALTH EXAMINATION: CT of the neck with contrast HISTORY: PTLD after remote liver transplant TECHNIQUE: CT of the neck was performed according to standard protocol after the uneventful administration of intravenous contrast. Contrast information: 100 mL Optiray-350 COMPARISON: 12/03/2017. FINDINGS: There are postoperative changes of right neck excisional biopsy. There is diffuse lymphadenopathy involving cervical levels 1 to 4 and the supraclavicular spaces. ??Some of these nodes appear mildly centrally necrotic. ??Prominent level 5 lymph nodes measure up to 1cm in short axis dimension. ??No evidence of axillary lymphadenopathy. The lymphadenopathy has markedly worsened since the prior examination. ??For reference, one of the largest nodes is a right level 1B node measuring 1.8 x 2.1 cm on series 2, image 15 (previously 0.7 x 1.1 cm). ??A left level 2B lymph node on series 2, image 65 measures 1.3 x 1.4 cm. ??A right level 2/3 lymph on series 2, image 65 measures 2.0 x 1.6 cm. The muscles of the neck are normal. Vessels of the neck demonstrate normal course. Fascial planes are preserved. The visualized airway is widely patent. Fluid is noted in the esophagus. ?? The base of the skull and the temporal bones are normal. ??There is mucosal thickening and fluid throughout the visualized sinuses, worst in the right sphenoid and maxillary sinuses where there is near complete opacification. ??No evidence of osseous erosion and no air-fluid levels. ??Limited views of the brain including the cerebellum and brainstem are normal. The limited view of the [place] is unremarkable. The visualized portions of the orbits are normal. The spinal canal is normal in caliber. Intervertebral disk heights are normal. Neural foramina are normal. Procedure Note Jaime Juarez MD PhD - 12/28/2018 EXAMINATION: CT of the neck with contrast HISTORY: PTLD after remote liver transplant TECHNIQUE: CT of the neck was performed according to standard protocol after the uneventful administration of intravenous contrast. Contrast information: 100 mL Optiray-350 COMPARISON: 12/03/2017. FINDINGS: There are postoperative changes of right neck excisional biopsy. There is diffuse lymphadenopathy involving cervical levels 1 to 4 and the supraclavicular spaces. Some of these nodes appear mildly centrally necrotic. Prominent level 5 lymph nodes measure up to 1cm in short axis dimension. No evidence of axillary lymphadenopathy. The lymphadenopathy has markedly worsened since the prior examination. For reference, one of the largest nodes is a right level 1B node measuring 1.8 x 2.1 cm on series 2, image 15 (previously 0.7 x 1.1 cm). A left level 2B lymph node on series 2, image 65 measures 1.3 x 1.4 cm. A right level 2/3 lymph on series 2, image 65 measures 2.0 x 1.6 cm. The muscles of the neck are normal. Vessels of the neck demonstrate normal course. Fascial planes are preserved. The visualized airway is widely patent. Fluid is noted in the esophagus. The base of the skull and the temporal bones are normal. There is mucosal thickening and fluid throughout the visualized sinuses, worst in the right sphenoid and maxillary sinuses where there is near complete opacification. No evidence of osseous erosion and no air-fluid levels. Limited views of the brain including the cerebellum and brainstem are normal. The limited view of the [place] is unremarkable. The visualized portions of the orbits are normal. The spinal canal is normal in caliber. Intervertebral disk heights are normal. Neural foramina are normal. IMPRESSION: 1. New diffuse cervical and supraclavicular lymphadenopathy in this patient with known PTLD 2. Severe, worsened chronic sinusitis without evidence of extrasinus disease Dictated by: Nina Ornelas M.D. Electronically signed by: Jaime Juarez us Anita Gillespie MD IMG CT PROCEDURES Final Re sult * CT Chest Abdomen Pelvis W Contrast (12/28/2018 7:14 AM MEDICAL DIRECTOR OCCUPATIONAL HEALTH) Anatomical Region Laterality Modality Body N/A Computed Tomogra phy 12/28/2018 7:34 AM MEDICAL DIRECTOR OCCUPATIONAL HEALTH Impressions 12/28/2018 7:34 AM MEDICAL DIRECTOR OCCUPATIONAL HEALTH 1. ??Postsurgical changes of orthotopic left hemiliver transplantation. 2. ??Interval resolution of the previously described pulmonary emboli. 3. ??Unchanged mildly enlarged mediastinal lymph nodes are likely reactive and demonstrated no hypermetabolic activity on PET/CT 01/05/2018. Electronically signed by: Feliciano Hernandez M.D. 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 TECHNIQUE: ??Transaxial computed tomographic images of the chest, abdomen and pelvis were obtained with intravenous contrast according to the standard protocol after the uneventful administration of 100 mL Opti-Ray 350 intravenous contrast. COMPARISON: CT abdomen pelvis 12/21/2017, CT chest 12/01/2017 and MRI abdomen 12/05/2018. FINDINGS: ?? Chest: Visualized portions of the thyroid and esophagus are normal. Unchanged 1.0 cm right station 3P lymph node in the upper mediastinum best seen on slice location 117.0 and 2.2 x 1.8 cm Station 7 (subcarinal) lymph node best seen on slice location 23. ??No pathologically enlarged supraclavicular, hilar or axillary adenopathy. ??Nonaneurysmal thoracic aorta with normal arch anatomy. No calcified atherosclerosis of the aortic arch or coronary arteries. Heart size normal without pericardial effusion. ??Main pulmonary arterial trunk is nonenlarged with interval resolution of the previously described pulmonary emboli. Trachea and central airways are unremarkable. ??No suspicious noncalcified pulmonary nodules, focal airspace consolidation, pulmonary edema, pleural effusion or pneumothorax. Abdomen/Pelvis: Postoperative changes of orthotopic left hemiliver transplantation are again demonstrated. ??The hepatic, portal, splenic and superior mesenteric veins are patent. ??No intra or extra hepatic biliary ductal dilatation. ??Small amount of pneumobilia is demonstrated consistent with patent hepaticojejunostomy. ??Postsurgical changes of splenectomy and cholecystectomy. ??The adrenal glands, pancreas and kidneys are normal. ??No hydronephrosis, renal or ureteral calculi. Nonaneurysmal abdominal aorta without calcified atherosclerosis. Normal caliber IVC. ??No pathologically enlarged retroperitoneal, pelvic, inguinal or mesenteric adenopathy. 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 ??The small bowel is normal course and caliber without evidence of obstruction. ??Colon is normal caliber without focal wall thickening, paracolic fat stranding or adjacent drainable fluid collection. ??The appendix is normal. ??The prostate gland and bladder are normal. ??No free air or free fluid within the abdomen or pelvis. No destructive osseous lesions. 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 TECHNIQUE: Transaxial computed tomographic images of the chest, abdomen and pelvis were obtained with intravenous contrast according to the standard protocol after the uneventful administration of 100 mL Opti-Ray 350 intravenous contrast. COMPARISON: CT abdomen pelvis 12/21/2017, CT chest 12/01/2017 and MRI abdomen 12/05/2018. FINDINGS: Chest: Visualized portions of the thyroid and esophagus are normal. Unchanged 1.0 cm right station 3P lymph node in the upper mediastinum best seen on slice location 117.0 and 2.2 x 1.8 cm Station 7 (subcarinal) lymph node best seen on slice location 23. No pathologically enlarged supraclavicular, hilar or axillary adenopathy. Nonaneurysmal thoracic aorta with normal arch anatomy. No calcified atherosclerosis of the aortic arch or coronary arteries. Heart size normal without pericardial effusion. Main pulmonary arterial trunk is nonenlarged with interval resolution of the previously described pulmonary emboli. Trachea and central airways are unremarkable. No suspicious noncalcified pulmonary nodules, focal airspace consolidation, pulmonary edema, pleural effusion or pneumothorax. Abdomen/Pelvis: Postoperative changes of orthotopic left hemiliver transplantation are again demonstrated. The hepatic, portal, splenic and superior mesenteric veins are patent. No intra or extra hepatic biliary ductal dilatation. Small amount of pneumobilia is demonstrated consistent with patent hepaticojejunostomy. Postsurgical changes of splenectomy and cholecystectomy. The adrenal glands, pancreas and kidneys are normal. No hydronephrosis, renal or ureteral calculi. Nonaneurysmal abdominal aorta without calcified atherosclerosis. Normal caliber IVC. No pathologically enlarged retroperitoneal, pelvic, inguinal or mesenteric adenopathy. 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 The small bowel is normal course and caliber without evidence of obstruction. Colon is normal caliber without focal wall thickening, paracolic fat stranding or adjacent drainable fluid collection. The appendix is normal. The prostate gland and bladder are normal. No free air or free fluid within the abdomen or pelvis. No destructive osseous lesions. IMPRESSION: 1. Postsurgical changes of orthotopic left hemiliver transplantation. 2. Interval resolution of the previously described pulmonary emboli. 3. Unchanged mildly enlarged mediastinal lymph nodes are likely reactive and demonstrated no hypermetabolic activity on PET/CT 01/05/2018. Electronically signed by: Feliciano Hernandez M.D. 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) documented in this encounter Administered Medications Inactive Administered Medications - up to 3 most recent administrations Medication Order MAR Action Action Date Dose Rate Site ioversol (OPTIRAY 350) syringe syringe 100 mL 100 mL, intravenous, Once in imaging, contrast, Starting on Wed12/28/18 at 0704, For 1 dose Given 12/28/2018 7:11 AM MEDICAL DIRECTOR OCCUPATIONAL HEALTH 100 mL ioversol (OPTIRAY 350) syringe syringe 50 mL 50 mL, intravenous, Once in imaging, contrast, Starting on Wed12/28/18 at 0704, For 1 dose Given 12/28/2018 7:11 AM MEDICAL DIRECTOR OCCUPATIONAL HEALTH 50 mL documented in this encounter Care Teams Piccoloist Relationship Specialty Start Date End Date Kali Cruz MD [address] [place] [address] PCP - General 04/09/17 03/21/19 Munira Rick, RN [address] [address] Electroless Plater 04/01/18 documented as of this encounter
--- OUTSIDE RECORDS SUMMARY | 2024-10-28 06:26 | XMS_ITS | Encounter Summary ---
Author Organization [facility] Healthcare Address [address] [place] [address] Care Team Providers Care Dairy Store Manager Name Role Phone Kali Cruz MD Primary Care Provider [phone] Munira Rick RN Unavailable [phone] Reason for Referral * Diagnostic Imaging (Routine) - Closed Specialty Diagnoses / Procedures Referred By Contac t Referred To Contact Radiology Diagnoses Liver replaced by transplant (HCC) Procedures MRI Abdomen MRCP W WO Contrast Theodore Gresham MD Phone: tel: fax: [address] [address] Referral ID Status Reason Start Date Expiration Date Visits Re quested Visits Authorized [id number] Closed 10/24/2018 05/04/2020 1 1 ICE DESK AGENT Reason for Visit * Diagnostic Imaging (Routine) - Closed Specialty Diagnoses / Procedures Referred By Contac t Referred To Contact Radiology Diagnoses Liver replaced by transplant (HCC) Procedures MRI Abdomen MRCP W WO Contrast Theodore Gresham MD Phone: tel: fax: [address] [address] Referral ID Status Reason Start Date Expiration Date Visits Re quested Visits Authorized [id number] Closed 10/24/2018 05/04/2020 1 1 Encounter Details Date Type Department Care Team (Latest Contact Info) Description 12/05/2018 7:23 PM SERVICE DESK AGENT - 12/05/2018 11:59 PM SERVICE DESK AGENT Hospital Encounter [facility]) [address] [place] [address] Theodore Gresham MD [address] [facility] [address] [place] [address] Liver replaced by transplant (CMS/HCC) Discharge Disposition: Discharge to home or self care Social History Tobacco Use Types Packs/Day Years Used Date Smoking Tobacco: Never Smokeless Tobacco: Never Sex and Gender Information Value Date Recorded Sex Assigned at Not on file Legal Sex Male 6:28 AM SERVICE DESK AGENT Gender Identity Not on file Sexual Orientation Straight 08/22/2021 9: 23 AM CDT documented as of this encounter Medications at Time of Discharge tacrolimus (PROGRAF) 0.5 mg capsuleIndication s:History of liver transplant (CMS/HCC) (HCC) Take 1 capsule (0.5 mg total) by mouth 2 (two) times a day. 180 capsule 3 11/29/2018 02/13/2019 valGANciclovir (VALCYTE) 450 mg tabletIndications :History of liver transplant (CMS/HCC) (HCC) Take 1 tablet (450 mg total) by mouth 2 (two) times a day. 60 tablet 1 09/30/2018 12/06/2018 documented as of this encounter Discharge Disposition [...] CONTRAST Schedule Routine, Read Routine (OP Routine) 12/05/2018 8:30 PM SERVICE DESK AGENT Liver replaced by transplant (CMS/HCC) documented in this encounter Results * MRI Abdomen MRCP W WO Contrast (12/05/2018 8:30 PM SERVICE DESK AGENT) Anatomical Region Laterality Modality Body N/A Magnetic Resonan ce 12/06/2018 10:0 4 AM SERVICE DESK AGENT Impressions 12/06/2018 12:32 PM SERVICE DESK AGENT Postsurgical changes of left lobe orthotopic liver transplant. ??No steatosis, surface nodularity, or biliary ductal dilatation. Dictated by: Joaquin Chao M.D. Electronically signed by: Garrett He M.D. Narrative 12/06/2018 12:32 PM SERVICE DESK AGENT EXAMINATION: 1. ??MAGNETIC RESONANCE IMAGING OF THE [...] Site gadoterate meglumine (DOTAREM) 0.5 mmol/mL injection 11.82 mL 11.82 mL (0.1 mmol/kg ? 59.1 kg), intravenous, Once in imaging, contrast, Starting on 12/05/18 at 1955, For 1 dose, Imaging Protocol Orders Given 12/05/2018 8:20 PM SERVICE DESK AGENT 12 mL documented in this encounter Care Teams Dairy Store Manager Relationship Specialty Start Date End Date Kali Cruz MD [address] [place] [address] PCP - General 04/09/17 03/21/19 Munira Rick, RN [address] [facility] [address] [place] [address] Kapok Machine Operator 04/01/18 documented as of this encounter
--- OUTSIDE RECORDS SUMMARY | 2024-10-28 06:26 | XMS_ITS | Encounter Summary ---
Author Organization [facility] Healthcare Address [address] [place] [address] Care Team Providers Care Software Development Analyst Name Role Phone Kali Cruz MD Primary Care Provider [phone] Munira Rick RN Unavailable [phone] Encounter Details Date Type Department Care Team (Late st Contact Info) Description 11/25/2018 Documentation [facility] Transplant Liver [address] [address] [id number] [place] [address] Eli Brink Social History Tobacco Use Types Packs/Day Years Used Date Smoking Tobacco: Never Smokeless Tobacco: Never Sex and Gender Information Value Date Recorded Sex Assigned at Not on file Legal Sex Male 6:28 AM GLASS INSTALLER TECHNICIAN Gender Identity Not on file Sexual Orientation Straight 08/22/2021 9: 23 AM CDT documented as of this encounter Plan of Treatment Scheduled Procedures Name Priority Associated Diagnoses Date/Ti me COLONOSCOPY Encounter for screening for colorectal cancer in high risk patient Family history of rectal cancer documented as of this encounter Visit Diagnoses Not on filedocumented in this encounter Care Teams Software Development Analyst Relationship Specialty Start Date End Date Kali Cruz MD [address] [place] [address] PCP - General 04/09/17 03/21/19 Munira Rick, RN [address] [facility] [address] [place] [address] Local Operator 04/01/18 documented as of this encounter
--- OUTSIDE RECORDS SUMMARY | 2024-10-28 06:26 | XMS_ITS | Encounter Summary ---
Author Organization [facility] Healthcare Address [address] [place] [address] Care Team Providers Care Director Child Development Center Name Role Phone Kali Cruz MD Primary Care Provider [phone] Munira Rick RN Unavailable [phone] Encounter Details Date Type Department Care Team (Late st Contact Info) Description 11/29/2018 Orders Only [facility] Transplant Liver [address] [facility] [phone] [place] [address] Maryam Irene, RN [address] [facility] [address] [place] [address] Social History Tobacco Use Types Packs/Day Years Used Date Smoking Tobacco: Never Smokeless Tobacco: Never Sex and Gender Information Value Date Recorded Sex Assigned at Not on file Legal Sex Male 6:28 AM REGULATOR PIN INSERTER Gender Identity Not on file Sexual Orientation Straight 08/22/2021 9: 23 AM CDT documented as of this encounter Progress Notes * Maryam Irene RN - 11/29/2018 10:00 AM CST Mom inquires about lab results from 11/04 and if MRI is still needed. Per encounters it looks like ptis scheduled for MRCP on 12/05 at 8pm. She was unaware of this appt. I will touch base with primary coordinator to see if there is additional information needed for pt. LATOR PIN INSERTER documented in this encounter Plan of Treatment Scheduled Procedures Name Priority Associated Diagnoses Date/Ti me COLONOSCOPY Encounter for screening for colorectal cancer in high risk patient Family history of rectal cancer documented as of this encounter Visit Diagnoses Not on filedocumented in this encounter Care Teams Director Child Development Center Relationship Specialty Start Date End Date Kali Cruz MD [address] [facility] [address] INTERNAL MEDICINE [place], [place] [id number] PCP - General 04/09/17 03/21/19 Munira Rick, RN [address] [address] Tumbler Machine Operator Helper 04/01/18 documented as of this encounter
--- OUTSIDE RECORDS SUMMARY | 2024-10-28 06:26 | XMS_ITS | Encounter Summary ---
Author Organization [facility] Healthcare Address [address] [place] [address] Care Team Providers Care Leaf Conditioner Name Role Phone Kali Cruz MD Primary Care Provider [phone] Munira Rick RN Unavailable [phone] Reason for Referral * Diagnostic Imaging (Routine) - Closed Specialty Diagnoses / Procedures Referred By Contac t Referred To Contact Diagnoses Liver replaced by transplant (HCC) Procedures US Abdomen Complete W Liver Duplex Theodore Gresham MD Phone: tel: fax: [address] [phone] Referral ID Status Reason Start Date Expiration Date Visits Re quested Visits Authorized [id number] Closed 10/13/2018 04/23/2020 1 1 GER MECHANICAL * Diagnostic Imaging (Routine) - Closed Specialty Diagnoses / Procedures Referred By Contac t Referred To Contact Diagnoses History of liver transplant (CMS/HCC) (HCC) Procedures US Guided Biopsy Liver Theodore Gresham MD Phone: tel: fax: [address] [phone] Referral ID Status Reason Start Date Expiration Date Visits Re quested Visits Authorized [id number] Closed 10/18/2018 10/18/2018 1 1 GER MECHANICAL Reason for Visit * Diagnostic Imaging (Routine) - Closed Specialty Diagnoses / Procedures Referred By Contac t Referred To Contact Diagnoses History of liver transplant (CMS/HCC) (HCC) Procedures US Guided Biopsy Liver Theodore Gresham MD Phone: tel: fax: [address] [phone] Referral ID Status Reason Start Date Expiration Date Visits Re quested Visits Authorized [id number] Closed 10/18/2018 10/18/2018 1 1 Encounter Details Date Type Department Care Team (Latest Contact Info) Description 10/18/2018 7:05 AM MANAGER MECHANICAL - 10/18/2018 11:59 PM MANAGER MECHANICAL Hospital Encounter [facility] Radiology [address] [place] [id number] Theodore Gresham MD [address] [facility] [address] [place] [address] History of liver transplant (CMS/HCC); Liver replaced by transplant (CMS/HCC) Discharge Disposition: Discharge to home or self care Social History Tobacco Use Types Packs/Day Years Used Date Smoking Tobacco: Never Smokeless Tobacco: Never Sex and Gender Information Value Date Recorded Sex Assigned at Not on file 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 MECHANICAL Gender Identity Not on file Sexual Orientation Straight 08/22/2021 9: 23 AM CDT documented as of this encounter Last Filed Vital Signs Vital Sign Reading Time Taken Comments Blood Pressure 104/60 10/18/2018 11:15 AM MANAGER MECHANICAL Pulse 61 10/18/2018 11:30 AM MANAGER MECHANICAL Temperature 36.6 ??C (97.9 ??F) 10/18/2018 10:[address] Respiratory Rate 14 10/18/2018 11:00 AM MANAGER MECHANICAL Oxygen Saturation 98% 10/18/2018 11:30 AM MANAGER MECHANICAL Inhaled Oxygen Concentration - - Weight - - Height - - Body Mass Index - - documented in this encounter Discharge Instructions * Discharge Instructions* Mary Potter MD - 10/18/2018 9:35 AM MANAGER MECHANICAL Interventional Radiology Outpatient Discharge Instructions/Note Diagnosis: liver transplant with elevated liver enzymes Procedure: US guided liver biopsy Limitations: [x] No lifting greater than 5 pounds with [] Right [] Left arm for 2 days. [] You received medication that may affect your judgement. ?? Stay with a responsible person today. ?? Do not drive, operate machinery, make any legal or important decisions, or drink alcohol tomorrow. ?? No smoking unless another adult [...] to close your incision. See teaching sheet. [] Keep site clean and dry. [x] You may bathe or shower tomorrow. [] Change the dressing daily and if it becomes wet or dirty. [] Cover entire area with plastic and tape down edges before showering to keep site clean and dry. [] The suture at your dialysis access site may be removed by the dialysis staff on ___/___/___ (date). GER MECHANICAL documented in this encounter Medications at Time of Discharge tacrolimus (PROGRAF) 0.5 mg capsuleIndication s:History of liver transplant (CMS/HCC) (HCC) Take 1 capsule (0.5 mg total) by mouth 2 (two) times a day. 180 capsule 3 09/28/2018 11/28/2018 valGANciclovir (VALCYTE) 450 mg tabletIndications :History of liver transplant (CMS/HCC) (HCC) Take 1 tablet (450 mg total) by mouth 2 (two) times a day. 60 tablet 1 09/30/2018 12/06/2018 documented as of this encounter Discharge Disposition Disposition Code Departure Means Destination Discharge to home or self care documented in this encounter Miscellaneous Notes * Post-Procedure Note - Mary Potter MD - 10/18/2018 9:31 AM MANAGER MECHANICAL Radiology Brief Post Procedure Note Attending: Dr. Michael Meneses Bread Pan Greaser: Mary Potter MD Sedation/Anesthesia: Local Pre-Op/Pre-Procedure Diagnosis: liver transplant, elevated liver enzymes Post-Op/Post-Procedure Diagnosis: same Procedure Performed: US guided liver biopsy Procedure Findings: successful biopsy Complications: None Estimated Blood Loss: < 30 ml Specimens: 2 cores Condition: Stable Full report to follow. GER MECHANICAL * Pre-Procedure Note - Mary Potter MD - 10/18/2018 8:57 AM MANAGER MECHANICAL Radiology Procedure Plan Indication: liver transplant, elevated liver enzymes Planned Procedure: US guided liver biopsy GER MECHANICAL documented in this encounter Plan of Treatment Scheduled Procedures Name Priority Associated Diagnoses Date/Ti ms COLONOSCOPY Encounter for screening for colorectal cancer in high risk patient Family history of rectal cancer documented as of this encounter Procedures Procedure Name Priority Date/Time Associated Diagnosis Comments US ABDOMEN COMPLETE W LIVER DOPPLER (C) Schedule Routine, Read Routine (OP Routine) 10/18/2018 9:39 AM MANAGER MECHANICAL Liver replaced by transplant (CMS/HCC) US GUIDED BIOPSY LIVER Schedule Routine, Read Routine (OP Routine) 10/18/2018 9:39 AM MANAGER MECHANICAL History of liver transplant (CMS/HCC) SURGICAL PATHOLOGY Routine 10/18/2018 9:25 AM MANAGER MECHANICAL History of liver transplant (CMS/HCC) Liver replaced by transplant (CMS/HCC) documented in this encounter Results * US Abdomen Complete W Liver Duplex (10/18/2018 9:39 AM MANAGER MECHANICAL) Anatomical Region Laterality Modality Abdomen Right Ultrasound 10/18/2018 11:4 0 AM MANAGER MECHANICAL Impressions 10/18/2018 11:51 AM MANAGER MECHANICAL 1. Postoperative changes of left lobe orthotopic [...] Сергей Meneses M.D. Narrative 10/18/2018 11:51 AM MANAGER MECHANICAL EXAMINATION: 1. LIMITED ABDOMINAL SONOGRAM 2. LIVER [...] passes were made with an 18 gauge CorvoAllotrope Partnerst core biopsy needle, 1.5 cm throw. The [...] Сергей Meneses M.D. us Theodore Gresham MD [facility] US PROCEDURES Final Re sult * US Guided Biopsy Liver (10/18/2018 9:39 AM MANAGER MECHANICAL) Anatomical Region Laterality Modality Leg N/A Ultrasound 10/18/2018 11:4 0 AM MANAGER MECHANICAL Impressions 10/18/2018 11:51 AM MANAGER MECHANICAL 1. Postoperative changes of left lobe orthotopic [...] Сергей Meneses M.D. Narrative 10/18/2018 11:51 AM MANAGER MECHANICAL EXAMINATION: 1. LIMITED ABDOMINAL SONOGRAM 2. LIVER [...] passes were made with an 18 gauge [employer] Warmongerst core biopsy needle, 1.5 cm throw. The [...] Сергей Meneses M.D. us Theodore Gresham MD IMG US PROCEDURES Final Re sult * Surgical pathology (10/18/2018 9:25 AM MANAGER MECHANICAL) Tissue (Liver, Biopsy, Needle Medical) 10/18/2018 9:25 AM MANAGER MECHANICAL Comment:Random core Liver bi opsy Lt lobe S/p liver transplant 1999 with PTLD and elev LFT's H/o B-cell lymphoma Narrative PATHOLOGY [facility] - 10/19/2018 2:34 PM MANAGER MECHANICAL EPIC results best viewed via link to PDF [facility] Yulisa Garcia [facility] [place] [address] SURGICAL PATHOLOGY REPORT FINAL WITH ADDENDUM Patient Name: ?? ADI NICHOLS Gender: ??M : ??1995 (Age: 23) Address: ??[address] [place] [id number] Hospital #: ??[id number] Taken:10/18/2018 Received:10/18/2018 Reported: 10/19/2018 Patient Type: [facility] Ancillary ?? Service: Radiology Location: [facility] Physician(s): ??Stephon Burleson M.D. Diagnosis: Liver, allograft, random left lobe, biopsy ? - Suboptimal biopsy (3 portal tracts present for evaluation; trichrome/reticulin) - No significant steatosis or lobular inflammation - No evidence to support [id number] deficiency (PAS-D) - No significant stainable iron - No significant fibrosis (trichrome/reticulin) sumit/10/19/2018 12:36 By this signature, I attest that the above diagnosis is based upon my personal examination of the slides(and/or other material indicated in the diagnosis). Radha Oates MD Report Electronically Reviewed and Signed Out By ??Radha Oates MD 10/19/2018 14:34:25 Microscopic Description and Comment: This biopsy is suboptimal for evaluation of the portal tracts. There is no evidence of a lobular injury process in this biopsy. If clinical concern persists, rebiopsy may be indicated. CMV stain is ordered, and the results will be reported in an addendum. ??Microscopic examination substantiates the above cited diagnosis. Margaret Israel M.D. History: The patient is a 23-year-old man status post liver transplant in 1998 with PTLD and elevated liver function tests and a history of B-cell lymphoma. ??Operative procedure: Random core liver biopsy. Specimen(s) Received: A: Left lobe liver core bx Gross Description: Received in formalin labeled with the patient's name and random core liver biopsy LT lobe are two cores of dark preston tissue measuring 1.0 1.2 cm in length by 0.1 cm in diameter. ??Labeled A1/A2. ??Jar 0. mab/10/18/2018 14:32 SADE Chapin By this signature, I attest that the above diagnosis is based upon my personal examination of the slides(and/or other material). Addenda/Procedures Addendum Ordered: 10/20/2018 Status: Signed Out Addendum Complete: 10/20/2018 By: Radha Oates MD Addendum Signed Out: 10/20/2018 ?? Addendum Comment CMV immunostain (single antibody procedure with appropriate control) is negative for viral inclusions. By this signature, I attest that the above diagnosis is based upon my personal examination of the slides(and/or other material indicated in the diagnosis). ?? Radha Oates MD ??Report Electronically Reviewed and Signed Out By ??Radha Oates MD ??10/20/2018 14:57:35 ??Margaret Israel M.D. ? The performance characteristics of some immunohistochemical stains, fluorescence in-situ hybridization tests and immunophenotyping by flow cytometry cited in this report (if any) were determined by the Surgical Pathology Department at [facility] as part of an ongoing business quality assurance analyst program and in compliance with federally [...] determined by the Surgical Pathology Department of [facility]. ??It has not been cleared or approved by the U. S. Food and Drug Administration. IMAGES AND SCANNED DOCUMENTS, IF INCLUDED, ONLY VIEWABLE IN PDF VERSION OF REPORT Theodore Gresham MD LAB PATHOLOGY ORDERABLES F inal Result PATHOLOGY [facility] 3rd Floor [place], [place] [phone] documented in this encounter Visit Diagnoses Diagnosis History of liver transplant (CMS/HCC) (HCC) Liver replaced by transplant Liver replaced by transplant (HCC) Liver replaced by transplant documented in this encounter Administered Medications Inactive Administered Medications - up to 3 most recent administrations Medication Order MAR Action Action Date Dose Rate Site lidocaine (XYLOCAINE) 10 mg/mL (1 %) injection Code/trauma/sedation medication, Starting on Wed10/18/18 at 0920, Intra-Procedure (IR), Indications: Administration of Local AnesthesiaIndications:Admin istration of Local Anesthesia Given 10/18/2018 9:20 AM MANAGER MECHANICAL 4 mL Left Upper Abdomen documented in this encounter Care Teams Leaf Conditioner Relationship Specialty Start Date End Date Kali Cruz MD [address] [place] [address] PCP - General 04/09/17 03/21/19 Munira Rick, RN [address] [facility] [address] [place] [address] Swaging Machine Adjuster 04/01/18 documented as of this encounter
--- OUTSIDE RECORDS SUMMARY | 2024-10-28 06:26 | XMS_ITS | Encounter Summary ---
Author Organization [facility] Healthcare Address [address] [place] [address] Care Team Providers Care Donor Recruiter Name Role Phone Kali Cruz MD Primary Care Provider [phone] Munira Rick RN Unavailable Encounter Details Date Type Department Care Team (Late st Contact Info) Description 10/18/2018 7:15 AM WATERSIDE WORKER Lab [facility] [address] [facility] 1st [place] [phone] Liver replaced by transplant (CMS/HCC) Social History Tobacco Use Types Packs/Day Years Used Date Smoking Tobacco: Never Smokeless Tobacco: Never Sex and Gender Information Value Date Recorded Sex Assigned at Not on file Legal Sex Male 6:28 AM WATERSIDE WORKER Gender Identity Not on file Sexual Orientation Straight 08/22/2021 9: 23 AM CDT documented as of this encounter Plan of Treatment Scheduled Procedures Name Priority Associated Diagnoses Date/Ti me COLONOSCOPY Encounter for screening for colorectal cancer in high risk patient Family history of rectal cancer documented as of this encounter Procedures Procedure Name Priority Date/Time Associated Diagnosis Comments PROTIME-INR STAT 10/18/2018 7:15 AM WATERSIDE WORKER Liver replaced by transplant (CMS/HCC) documented in this encounter Results * Protime-INR (10/18/2018 7:15 AM WATERSIDE WORKER) PT 10.9 8.5 - 13.0 sec [facility] INR 1.02 0.80 - 1.21 [facility] Comment: Interpretive Data Inpatient therapeutic ranges* Atrial fibrillation ?2.0-3.0 INR Venous thrombo-embolism ?2.0-3.0 INR Bioprosthetic heart valve ?* Mechanical heart valve, bileaflet or tilting disk,aortic position ? 2.0-3.0 INR All other,or bileaflet or tilting disk, in mitral position ? 2.5-3.5 INR *See the pharmacy resource directory (PHRED) for an updated copy of the Tool Book at [email or web address] Current Interpretive Data was last revised 2012. Blood specimen (specimen) 10/18/2018 7:15 AM WATERSIDE WORKER 10/18/2018 7:24 AM WATERSIDE WORKER Narrative [facility] - 10/18/2018 7:56 AM WATERSIDE WORKER Theodore Gresham MD LAB BLOOD ORDERABLES Final Result Performing Organization Address City/State/[facility] Co de Phone Number [facility] Department [place] [address] documented in this encounter Visit Diagnoses Diagnosis Liver replaced by transplant (HCC) Liver replaced by transplant documented in this encounter Care Teams Donor Recruiter Relationship Specialty Start Date End Date Kali Cruz MD [address] [place] [address] PCP - General 04/09/17 03/21/19 Munira Rick, RN [address] [facility] [address] [place] [address] Cheese Factory Worker 04/01/18 documented as of this encounter
--- OUTSIDE RECORDS SUMMARY | 2024-10-28 06:26 | XMS_ITS | Encounter Summary ---
Author Organization 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) CT,LAB,ROV Procedures ONCBCN LAB APPOINTMENT ARM Anita Paniagua MD [address] [facility] [address] [place] [address] Phone: tel: fax: [facility] Oncology [address] [facility] 7th [place] [address] [place] [address] Phone: tel: Referral ID Status Reason Start Date Expiration Date Visits Re quested Visits Authorized [id number] Closed 12/28/2018 10/31/2019 99 [phone] Encounter Details Date Type Department Care Team (Latest Contact Info) Description 12/28/2018 9:15 AM OIL BURNER REPAIRER Clinical Support [facility] Oncology [address] [facility] 7th [place] [address] [place] [address] PTLD after liver transplantation (CMS/HCC); Liver replaced by transplant (CMS/HCC) Social History Tobacco Use Types Packs/Day Years Used Date Smoking Tobacco: Never Smokeless Tobacco: Never Sex and Gender Information Value Date Recorded Sex Assigned at Not on file Legal Sex Male 6:28 AM OIL BURNER REPAIRER Gender Identity Not on file Sexual Orientation Straight 08/22/2021 9: 23 AM CDT documented as of this encounter Plan of Treatment Scheduled Procedures Name Priority Associated Diagnoses Date/Ti me COLONOSCOPY Encounter for screening for colorectal cancer in high risk patient Family history of rectal cancer documented as of this encounter Procedures Procedure Name Priority Date/Time Associated Diagnosis Comments LACTATE DEHYDROGENASE Routine 12/28/2018 8:05 AM OIL BURNER REPAIRER PTLD after liver transplantation (CMS/HCC) COMPREHENSIVE METABOLIC PANEL Routine 12/28/2018 8:05 AM OIL BURNER REPAIRER PTLD after liver transplantation (CMS/HCC) DIFFERENTIAL AUTO Routine 12/28/2018 8:0 2 AM OIL BURNER REPAIRER Liver replaced by transplant (CMS/HCC) DIFFERENTIAL AUTO Routine 12/28/2018 8:0 2 AM OIL BURNER REPAIRER PTLD after liver transplantation (CMS/HCC) CBC WITH AUTO DIFFERENTIAL Routine 12/28/2018 8:02 AM OIL BURNER REPAIRER Liver replaced by transplant (CMS/HCC) CBC WITH AUTO DIFFERENTIAL Routine 12/28/2018 8:02 AM OIL BURNER REPAIRER PTLD after liver transplantation (CMS/HCC) TACROLIMUS LEVEL, TROUGH Routine 12/28/2018 8:02 AM OIL BURNER REPAIRER Liver replaced by transplant (CMS/HCC) CYTOMEGALOVIRUS (CMV) DNA, QUANT GEN LAB Routine 12/28/2018 7:30 AM OIL BURNER REPAIRER Liver replaced by transplant (CMS/HCC) documented in this encounter Results * Lactate dehydrogenase (LD) (12/28/2018 8:05 AM OIL BURNER REPAIRER) Lactate dehydrogenase (LDH) 193 100 - 250 Units/L [facility] Blood specimen (specimen) 12/28/2018 8:05 AM OIL BURNER REPAIRER 12/28/2018 8:32 AM OIL BURNER REPAIRER Narrative [facility] - 12/28/2018 9:13 AM OIL BURNER REPAIRER us Anita Gillespie MD LAB BLOOD ORDERABLES Final Result [facility] [place] [address] * (ABNORMAL) Comprehensive metabolic panel (12/28/2018 8:05 AM OIL BURNER REPAIRER) Sodium 137 135 - 145 mmol/L [facility] Potassium, pl 4.5 3.3 - 4.9 mmol/L [facility] Chloride 103 97 - 110 mmol/L [facility] CO2 29 22 - 32 mmol/L [facility] Anion gap 5 2 - 15 mmol/L [facility] BUN 11 8 - 25 mg/dL [facility] Creatinine 0.88 0.80 - 1.30 mg/dL [facility] Glucose 91 70 - 199 mg/dL [facility] 2017. Calcium 9.3 8.5 - 10.3 mg/dL [facility] Bilirubin, total 0.4 0.1 - 1.2 mg/dL [facility] Protein, pl 6.3(L) 6.5 - 8.5 g/dL [facility] Albumin 4.1 3.5 - 5.0 g/dL [facility] Alk phos 304(H) 40 - 130 Units/L [facility] ALT 52 7 - 55 Units/L [facility] AST 29 10 - 50 Units/L [facility] Blood specimen (specimen) 12/28/2018 8:05 AM OIL BURNER REPAIRER 12/28/2018 8:32 AM OIL BURNER REPAIRER Narrative [facility] - 12/28/2018 9:13 AM OIL BURNER REPAIRER us Anita Gillespie MD LAB BLOOD ORDERABLES Final Result [facility] Department [place] [address] * (ABNORMAL) Differential, auto (12/28/2018 8:02 AM OIL BURNER REPAIRER) Neutrophil abs 8.9(H) 1.8 - 6.6 K/cumm [facility] Comment:Testing performed by : [facility], [address] [place] [phone] Lymphocyte abs 1.8 1.2 - 3.3 K/cumm [facility] Comment:Testing performed by : [facility], [address] [place] [phone] Monocyte abs 1.7(H) 0.2 - 1.2 K/cumm [facility] Comment:Testing performed by : [facility], [address] [place] [phone] Eosinophil abs 0.2 0.0 - 0.5 K/cumm [facility] Comment:Testing performed by : [facility], [address] [place] [phone] Basophil abs 0.0 0.0 - 0.2 K/cumm [facility] Comment:Testing performed by : [facility], [address] [place] [phone] Neutrophil pct 70.4 % [facility] Comment: Interpretive Data Percent cell count reference ranges are not reported, since discordance with absolute values may lead to misinterpretation of CBC data. Current Interpretive Data was last revised on 2018. Testing performed by: [facility], [address] [place] [phone] Lymphocyte pct 14.2 % [facility] Comment: Interpretive Data Percent cell count reference ranges are not reported, since discordance with absolute values may lead to misinterpretation of CBC data. Current Interpretive Data was last revised on 2018. Testing performed by: [facility], [address] [place] [phone] Monocyte pct 13.8 % [facility] Comment:Testing performed by : [facility], [address] [place] [phone] Eosinophil pct 1.2 % [facility] Comment:Testing performed by : [facility], [address] [place] [phone] Basophil pct 0.4 % [facility] Comment:Testing performed by : [facility], [address] [place] [phone] Blood specimen (specimen) 12/28/2018 8:02 AM OIL BURNER REPAIRER 12/28/2018 8:05 AM OIL BURNER REPAIRER Narrative [facility] - 12/28/2018 8:09 AM OIL BURNER REPAIRER Theodore Gresham MD LAB BLOOD ORDERABLES Final Result Performing Organization Address City/State/[facility] Co de Phone Number [facility] [place] [address] * (ABNORMAL) Differential, auto (12/28/2018 8:02 AM OIL BURNER REPAIRER) Neutrophil abs 8.8(H) 1.8 - 6.6 K/cumm [facility] Comment:Testing performed by : [facility], [address] [place] [phone] Lymphocyte abs 1.9 1.2 - 3.3 K/cumm [facility] Comment:Testing performed by : [facility], [address] [place] [phone] Monocyte abs 1.8(H) 0.2 - 1.2 K/cumm [facility] Comment:Testing performed by : [facility], [address] [place] [phone] Eosinophil abs 0.2 0.0 - 0.5 K/cumm [facility] Comment:Testing performed by : [facility], [address] [place] [phone] Basophil abs 0.0 0.0 - 0.2 K/cumm [facility] Comment:Testing performed by : [facility], [address] [place] [phone] Neutrophil pct 69.3 % [facility] Comment: Interpretive Data Percent cell count reference ranges are not reported, since discordance with absolute values may lead to misinterpretation of CBC data. Current Interpretive Data was last revised on 2018. Testing performed by: [facility], [address] [place] [phone] Lymphocyte pct 14.7 % [facility] Comment: Interpretive Data Percent cell count reference ranges are not reported, since discordance with absolute values may lead to misinterpretation of CBC data. Current Interpretive Data was last revised on 2018. Testing performed by: [facility], [address] [place] [phone] Monocyte pct 14.4 % [facility] Comment:Testing performed by : [facility], [address] [place] [phone] Eosinophil pct 1.3 % [facility] Comment:Testing performed by : [facility], [address] [place] [phone] Basophil pct 0.3 % [facility] Comment:Testing performed by : [facility], [address] [place] [phone] Blood specimen (specimen) 12/28/2018 8:02 AM OIL BURNER REPAIRER 12/28/2018 8:05 AM OIL BURNER REPAIRER Narrative [facility] - 12/28/2018 8:08 AM OIL BURNER REPAIRER us Anita Gillespie MD LAB BLOOD ORDERABLES Final Result [facility] Department of Laboratories [place], [place] [id number] * (ABNORMAL) CBC with auto differential (12/28/2018 8:02 AM OIL BURNER REPAIRER) WBC 12.6(H) 3.8 - 9.8 K/cumm [facility] Comment:Testing performed by : [facility], [address] [place] [phone] Hgb 15.2 13.8 - 17.2 g/dL [facility] Comment:Testing performed by : [facility], [address] [place], [place] [phone] Hct 43.5 40.7 - 50.3 % [facility] Comment:Testing performed by : [facility], [address] [place] [address] Plt 406 140 - 440 K/cumm [facility] Comment:Testing performed by : [facility], [address] [place] [address] MPV 7.7 6.8 - 10.4 fL [facility] Comment:Testing performed by : [place] [address] RBC 4.44(L) 4.50 - 5.70 M/cumm [facility] Comment:Testing performed by : [place] [address] MCV 97.9(H) 80.0 - 97.6 fL [facility] Comment:Testing performed by : [facility], [address] [place] [address] MCH 34.2(H) 26.7 - 33.7 pg [facility] Comment:Testing performed by : [place] [address] MCHC 35.0 32.7 - 35.5 g/dL [facility] Comment:Testing performed by : [place] [address] RDW CV 14.1 11.8 - 14.6 % [facility] Comment:Testing performed by : [facility], [address] [place] [address] NRBC abs 0.00 0.00 - 0.01 K/cumm [facility] Comment:Testing performed by : [place] [address] Blood specimen (specimen) 12/28/2018 8:02 AM OIL BURNER REPAIRER 12/28/2018 8:05 AM OIL BURNER REPAIRER Narrative [facility] - 12/28/2018 8:09 AM OIL BURNER REPAIRER us Theodore Gresham MD LAB BLOOD ORDERABLES Final Result [facility] Department [place] [address] * (ABNORMAL) CBC with auto differential (12/28/2018 8:02 AM OIL BURNER REPAIRER) WBC 12.6(H) 3.8 - 9.8 K/cumm [facility] Comment:Testing performed by : [facility], [address] [place] [phone] Hgb 15.2 13.8 - 17.2 g/dL [facility] Comment:Testing performed by : [address] [address] Hct 44.2 40.7 - 50.3 % [facility] Comment:Testing performed by : [address] [address] Plt 405 140 - 440 K/cumm [facility] Comment:Testing performed by : [facility], [address] [place] [phone] MPV 7.7 6.8 - 10.4 fL [facility] Comment:Testing performed by : [address] [address] RBC 4.52 4.50 - 5.70 M/cumm [facility] Comment:Testing performed by : [address] [address] MCV 97.8(H) 80.0 - 97.6 fL [facility] Comment:Testing performed by : [address] [address] MCH 33.6 26.7 - 33.7 pg [facility] Comment:Testing performed by : [address] [address] MCHC 34.4 32.7 - 35.5 g/dL [facility] Comment:Testing performed by : [address] [address] RDW CV 14.0 11.8 - 14.6 % [facility] Comment:Testing performed by : [facility], [address] [facility] [address] NRBC abs 0.00 0.00 - 0.01 K/cumm [facility] Comment:Testing performed by : [facility], [address] [facility] [phone] Blood specimen (specimen) 12/28/2018 8:02 AM OIL BURNER REPAIRER 12/28/2018 8:05 AM OIL BURNER REPAIRER Narrative [facility] - 12/28/2018 8:08 AM OIL BURNER REPAIRER Anita Gillespie MD LAB BLOOD ORDERABLES Final Result Performing Organization Address City/[facility] Co de Phone Number [facility] [place] [address] * Tacrolimus level trough (12/28/2018 8:02 AM OIL BURNER REPAIRER) [facility] Signature Tacrolimus, trough 3.8 ng/mL [facility] Comment: Interpretive Data The therapeutic range for tacrolimus can vary by transplant organ type and sample timing but a trough range of 5 - 15 ng/mL is typical. Testing performed by liquid chromatography-tandem mass spectrometry (LC- MS/MS).This test was developed using an analyte specific reagent. Its performance characteristics were determined by the [facility] in a manner consistent with CLIA requirements. This test has not been cleared or approved by the U.S. Food and Drug Administration. Current interpretive data was last revised on 2016. Blood specimen (specimen) 12/28/2018 8:02 AM OIL BURNER REPAIRER 12/28/2018 8:38 AM OIL BURNER REPAIRER Narrative [facility] - 12/28/2018 12:01 PM OIL BURNER REPAIRER us Theodore Gresham MD LAB BLOOD ORDERABLES Final Result Performing Organization Address City/[facility]/ZIP Co de Phone Number [facility] [place] [address] * Cytomegalovirus (CMV) DNA PCR, quantitative Blood (12/28/2018 7:30 AM OIL BURNER REPAIRER) CMV DNA Not Detected [facility] Comment: Interpretive Data: The quantifiable range of this assay is 137 IUnits/mL to 9,100,000 IUnits/mL (2.14 log IUnits/mL to 6.96 log IUnits/mL). Testing was performed by the [employer] AmpliPrep/NIA TaqMan CMV Test ([employer] Testing performed at [facility] Current interpretive data was last revised on 17. 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
--- OUTSIDE RECORDS SUMMARY | 2024-10-28 06:26 | XMS_ITS | Encounter Summary ---
Author Organization [facility] Address [address] [place] [address] Care Team Providers Care Chief Chemist Name Role Phone Kali Cruz MD Primary Care Provider [phone] Munira Rick RN Unavailable [phone] Encounter Details Date Type Department Care Team (Late st Contact Info) Description 10/14/2018 Telephone [facility] Transplant Liver [address] [facility] [address] [phone] [place], [place] [phone] Munira Rick, RN [address] [facility] [address] [place], [place] [phone] Social History Tobacco Use Types Packs/Day Years Used Date Smoking Tobacco: Never Smokeless Tobacco: Never Sex and Gender Information Value Date Recorded Sex Assigned at Not on file Legal Sex Male 6:28 AM COLORING ROOM MAN Gender Identity Not on file Sexual Orientation Straight 08/22/2021 9: 23 AM CDT documented as of this encounter Miscellaneous Notes * Telephone Encounter - Munira Rick RN - 10/14/2018 11:39 AM CST Pt had repeat labs including INR for liver biopsy. Pt has not had improvement in LFT's so will needto move forward with US then Biopsy. Called pt and spoke with his mom. She is aware that pt will need biopsy. RING ROOM MAN documented in this encounter Plan of Treatment Scheduled Procedures Name Priority Associated Diagnoses Date/Ti me COLONOSCOPY Encounter for screening for colorectal cancer in high risk patient Family history of rectal cancer documented as of this encounter Visit Diagnoses Not on filedocumented in this encounter Care Teams Chief Chemist Relationship Specialty Start Date End Date Kali Cruz MD [address] [facility] [address] [place] [address] PCP - General 04/09/17 03/21/19 Munira Rick, RN [address] [facility] [address] [place] [address] Talent Agent 04/01/18 documented as of this encounter
--- OUTSIDE RECORDS SUMMARY | 2024-10-28 06:26 | XMS_ITS | Encounter Summary ---
Author Organization [facility] Address [address] [place] [address] Phone Care Team Providers Care Scene Painter Name Role Phone Kali Cruz MD Primary Care Provider [phone] Munira Rick RN Unavailable [phone] Encounter Details Date Type Department Care Team (Late st Contact Info) Description 12/29/2018 Telephone [facility] Oncology [address] [facility] 7th [place] [address] [place] [address] Samreen Greene RN Social History Tobacco Use Types Packs/Day Years Used Date Smoking Tobacco: Never Smokeless Tobacco: Never Sex and Gender Information Value Date Recorded Sex Assigned at Not on file Legal Sex Male 6:28 AM FINISH PHOTOGRAPHER Gender Identity Not on file Sexual Orientation Straight 08/22/2021 9: 23 AM CDT documented as of this encounter Miscellaneous Notes * Telephone Encounter - Samreen Greene RN - 12/29/2018 3:02 PM FINISH PHOTOGRAPHER Notified Brooklynn that we were able to get Beka scheduled for a PET scan on 01/03/19. I reminded her that he cannot eat or drink at least 6 hours prior to this scan. [facility] He will also have a consultation with Dr. Valdes on this day. His appointment will be at 2:30on the 11th floor in [address] of the [facility]. They will meet Moni Guzman to be consented for banking prior to this visit. I reminded her that Beka can eat anytime after his PET scan. He does not need to be NPO for his appointment with Dr. Valdes. She will call for any questions or concerns that mayarise in the interim. SH PHOTOGRAPHER documented in this encounter Plan of Treatment Scheduled Procedures Name Priority Associated Diagnoses Date/Ti me COLONOSCOPY Encounter for screening for colorectal cancer in high risk patient Family history of rectal cancer documented as of this encounter Visit Diagnoses Not on filedocumented in this encounter Care Teams Scene Painter Relationship Specialty Start Date End Date Kali Cruz MD [address] [place] [address] PCP - General 04/09/17 03/21/19 Munira Rick, RN [address] [facility] [address] [place] [address] Historiography Teacher 04/01/18 documented as of this encounter
--- OUTSIDE RECORDS SUMMARY | 2024-10-28 06:26 | XMS_ITS | Encounter Summary ---
Author Organization [facility] Address [address] [place] [address] Phone Care Team Providers Care Certified Legal Investigator Name Role Phone Kali Cruz MD Primary Care Provider [phone] Munira Rick RN Unavailable [phone] Encounter Details Date Type Department Care Team (Late st Contact Info) Description 01/03/2019 Orders Only [facility] Oncology [address] [facility] 7th [place] [address] [place] [address] Samreen Greene RN Social History Tobacco Use Types Packs/Day Years Used Date Smoking Tobacco: Never Smokeless Tobacco: Never Sex and Gender Information Value Date Recorded Sex Assigned at Not on file Legal Sex Male 6:28 AM RETAIL AND RESTAURANT ASSOCIATE Gender Identity Not on file Sexual Orientation Straight 08/22/2021 9: 23 AM CDT documented as of this encounter Ordered Prescriptions Prescription Sig Dispense Quantity Refills Last Filled Start Date End Date amoxicillin-clavul anate (AUGMENTIN) 875-125 mg per tabletIndications: Upper Respiratory/HEENT Infection Take 1 tablet by mouth 2 (two) times a day for 14 days Indications: Upper Respiratory/ HEENT Infection. 28 tablet 01/03/2019 01/03/2019 documented in this encounter Plan of Treatment Scheduled Procedures Name Priority Associated Diagnoses Date/Ti me COLONOSCOPY Encounter for screening for colorectal cancer in high risk patient Family history of rectal cancer documented as of this encounter Visit Diagnoses Not on filedocumented in this encounter Care Teams Certified Legal Investigator Relationship Specialty Start Date End Date Kali Cruz MD [address] [facility] [address] [facility] [address] [place] [address] PCP - General 04/09/17 03/21/19 Munira Rick, RN [address] [address] Accounting Recruiter 04/01/18 documented as of this encounter
--- OUTSIDE RECORDS SUMMARY | 2024-10-28 06:26 | XMS_ITS | Encounter Summary ---
Author Organization [facility] Address [address] [place] [address] Phone Care Team Providers Care Model And Mold Maker Plaster Name Role Phone Kali Cruz MD Primary Care Provider [phone] Munira Rick RN Unavailable [phone] Encounter Details Date Type Department Care Team (Late st Contact Info) Description 01/03/2019 Telephone [facility] Oncology [address] [place] [address] [place] [address] Samreen Greene RN Social History Tobacco Use Types Packs/Day Years Used Date Smoking Tobacco: Never Smokeless Tobacco: Never Sex and Gender Information Value Date Recorded Sex Assigned at Not on file Legal Sex Male 6:28 AM LAB COORDINATOR Gender Identity Not on file Sexual Orientation Straight 08/22/2021 9: 23 AM CDT documented as of this encounter Miscellaneous Notes * Telephone Encounter - Samreen Greene RN - 01/03/2019 9:36 AM LAB COORDINATOR Brooklynn called to inform me that Beka's cough has worsened. She reports that he has been short of breath as well during his coughing spells. She states the discharge is yellow. He felt slightly warm this morning, but she does not think he has had any fevers. He slept most of the day Wednesday. After discussion with Dr. Gillespie, we would like to start him on a course of antibiotics. They know to callfor any further questions or concerns. COORDINATOR documented in this encounter Plan of Treatment Scheduled Procedures Name Priority Associated Diagnoses Date/Ti me COLONOSCOPY Encounter for screening for colorectal cancer in high risk patient Family history of rectal cancer documented as of this encounter Visit Diagnoses Not on filedocumented in this encounter Care Teams Model And Mold Maker Plaster Relationship Specialty Start Date End Date Kali Cruz MD [address] [facility] [place], [place] [id number] PCP - General 04/09/17 03/21/19 Munira Rick, RN [address] [facility] [address] [place] [address] Dean Of Instruction 04/01/18 documented as of this encounter
--- OUTSIDE RECORDS SUMMARY | 2024-10-28 06:26 | XMS_ITS | Encounter Summary ---
Author Organization [facility] Healthcare Address [address] [place] [address] Care Team Providers Care Taxicab Starter Name Role Phone Kali Cruz MD Primary Care Provider [phone] Munira Rick RN Unavailable [phone] Encounter Details Date Type Department Care Team (Late st Contact Info) Description 01/06/2019 8:00 AM DRAMATIC ARTS HISTORIAN - 01/06/2019 10:00 AM [facility] Surgery [facility] Operating Room [address] [place] [address] Bebe Valdes MD [facility] [address] [place] [address] Excisional lymph node biopsy of neck Surgery Details Date/Time Status Location OR Service Patient Class Case Class Case Type Trauma Case? 01/06/2019 8:00 AM Posted [facility] OR POD 5 221 Otolaryngology Inpatient Elective Panel 1 Procedure LRB Anes Op Region Wound Class Comments Excisional lymph node biopsy of neck Bilateral Monitor Anesthesia Care Neck Class I - Clean Surgeon Surgeon Role Service Panel Bebe Valdes MD Primary Otolaryngology 1 Violeta Her MD Resident - Assisting Minor Proc edures 1 Joni Quiñonez MD Fellow Otolaryngology 1 documented in this encounter Social History Tobacco Use Types Packs/Day Years Used Date Smoking Tobacco: Never Smokeless Tobacco: Never Sex and Gender Information Value Date Recorded Sex Assigned at Not on file Legal Sex Male 6:28 AM DRAMATIC ARTS HISTORIAN Gender Identity Not on file Sexual Orientation Straight 08/22/2021 9: 23 AM CDT documented as of this encounter Last Filed Vital Signs Vital Sign Reading Time Taken Comments Blood Pressure 112/69 01/06/2019 10:00 AM DRAMATIC ARTS HISTORIAN Pulse 94 01/06/2019 10:00 AM DRAMATIC ARTS HISTORIAN Temperature 37.2 ??C (99 ??F) 01/06/2019 10:00 AM DRAMATIC ARTS HISTORIAN Respiratory Rate 14 01/06/2019 10:00 AM DRAMATIC ARTS HISTORIAN Oxygen Saturation 96% 01/06/2019 10:00 AM DRAMATIC ARTS HISTORIAN Inhaled Oxygen Concentration - - Weight 54.4 kg (120 lb) 01/03/2019 2:48 PM DRAMATIC ARTS HISTORIAN Height 172.7 cm (5' 8 ) 01/03/2019 2:48 PM DRAMATIC ARTS HISTORIAN Body Mass Index 18.25 01/03/2019 2:48 PM DRAMATIC ARTS HISTORIAN documented in this encounter Discharge Summaries * Emili Tidwell MD - 01/06/2019 12:50 PM CST Inpatient Discharge Summary BRIEF OVERVIEW Admitting Provider: Lamar Sherman MD Discharge Provider: Anita Gillespie MD Primary Care Physician at Discharge: Kali Cruz MD [phone] Admission Date: 01/03/2019 Discharge Date: 01/06/2019 Admission Location: [facility] Primary Discharge Diagnosis: Healthcare associated pneumonia Secondary Discharge Diagnosis: Healthcare-associated pneumonia High grade B-cell lymphoma (CMS/HCC) History of liver transplant (CMS/HCC) 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 He follows with [facility] Hepatology. # Hx of CMV viremia CMV [...] 1 tablet (750 mg total) by mouth rocket motor mechanic before breakfast for 3 doses oxyCODONE 5 [...] Emili Tidwell MD - 01/06/2019 1:42 PM DRAMATIC ARTS HISTORIAN Ok to shower. Keep dressing over it in shower, dab dry. For mild-moderate pain, take tylenol up to 3g a day (for 325mg tabs, that is 2 tabs 4 times a day). Use the oxycodone pain medicine for severe pain, and take senna with it to prevent constipation. ATIC ARTS HISTORIAN documented in this encounter Medications at Time of Discharge levoFLOXacin (LEVAQUIN) 750 mg tabletIndication s:Pneumonia, Community Acquired Take 1 tablet (750 mg total) by mouth rocket motor mechanic before breakfast for 3 doses 3 tablet [...] 1 tablet (750 mg total) by mouth rocket motor mechanic before breakfast for 3 doses 3 tablet [...] the right neck drain care orders into [facility]. 3. Steristrips will fall off on their own. 4. Patient can follow-up in [address] Valdes ([phone]) for wound check and removal of drain (if it hasn't been removed earlier). Patient can call this number if he wishes to remove the drain earlier and meets aforementioned outputs. ATIC ARTS HISTORIAN * Emili Tidwell MD - 01/06/2019 7:16 AM CST Internal Medicine Daily Progress Subjective Chief complaint: PTLD Interval History: Went for excisional lymph node biopsy this AM Came back in a lot of pain with a TATI drain in right side of neck Objective Scheduled Medications: [Dec] guaiFENesin ER 600 mg oral BID [Dec] levoFLOXacin 750 mg oral Daily - 0600 [Dec] sodium chloride 0.9% 0.5-20 mL intra-catheter Q8H PIPPA [Dec] tacrolimus 0.5 mg oral BID [Dec] valGANciclovir 450 mg oral BID Continuous Medications: PRN Medications: ??? [Dec] acetaminophen ??? [Dec] ondansetron ??? [Dec] oxyCODONE ??? [Dec] polyvinyl alcohol-povidone ??? sodium chloride 0.9 % ??? [Dec] sodium chloride 0.9% Vitals: Most Recent : [...] patietn is clinically improving with decreasing leukocytosis -01/05 transitioned to levofloxacin 750mg qdaily - tentative [...] controlled. Any questions, please call. Emili Tidwell [phone] Emili Tidwell MD 01/06/2019 7:16 AM Cosigned by Lamar Sherman MD at 01/07/2019 7:44 AM DRAMATIC ARTS HISTORIAN ATIC ARTS HISTORIAN ATIC ARTS HISTORIAN ATIC ARTS HISTORIAN Associated attestation - Lamar Sherman MD - 01/07/2019 7:44 AM DRAMATIC ARTS HISTORIAN The resident/fellow saw and examined the patient, we discussed their findings, and I am in agreement with the plan based on the discussion with the resident/fellow. I did not personally examine the patient since he was off the floor in the OR. * Johnathan Burrows RN - 01/05/2019 3:59 PM CST 01/05/19 1557 Patient Information Primary Caregiver Self Support System Parent Support system contact info (name, phone, availablity) mother libia [phone] Prior Level of Functioning Durable Medical Equipment Cane (single prong) Income Information Income Source Unemployed Communications Fiduciary Responsibility Patient/Designated decision maker was informed of [facility] fiduciary relationship as necessary Chart reviewed for [...] To Continue To Follow for Discharge needs ATIC ARTS HISTORIAN ATIC ARTS HISTORIAN * Malena Junior MD - 01/05/2019 7:27 [...] 6.8 (H) 0.0 - 0.0 % Micro 3/6 sputum culture: NG Blood culture 01/03 x2: [...] imaging. 3. Findings of pansinusitis, similar to December neck CT. 4. Diffusely increased activity throughout [...] Malena Junior MD PGY2 Cosigned by Lamar Sehrman MD at 01/05/2019 3:49 PM DRAMATIC ARTS HISTORIAN ATIC ARTS HISTORIAN ATIC ARTS HISTORIAN ATIC ARTS HISTORIAN Associated attestation - Lamar Sherman MD - 01/05/2019 3:49 PM DRAMATIC ARTS HISTORIAN I have seen and examined the patient [...] [P.O.:400; I.V.:1189; IV Piggyback:410] Out: 1400 [Urine:1400] No intake/output data recorded. Physical Exam: [...] acid 3.0 3.0 - 8.0 mg/dL Micro 3/5 BCx x2: NGTD 3/6 sputum culture: few squamous epithelial cells; abundant [...] imaging. 3. Findings of pansinusitis, similar to December neck CT. 4. Diffusely increased activity throughout [...] to see 01/04 - BMBx today with RETAIL PROPERTY MANAGER, studies sent - serum CMV, EBV PCR [...] Lamar Sherman MD at 01/04/2019 4:22 PM DRAMATIC ARTS HISTORIAN ATIC ARTS HISTORIAN ATIC ARTS HISTORIAN Associated attestation - Lamar Sherman MD - 01/04/2019 4:22 PM DRAMATIC ARTS HISTORIAN I have seen and examined the patient on 01/04/19. I agree with the findings and plan of care as documented in the resident's/fellow's note and as discussed with the resident/fellow.. 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 ITP # Bilateral PE 10/2017, no longer on AC ALLERGIES AND DRUG REACTIONS No Known Allergies FAMILY HISTORY Mother - CRC - diagnosed at 30yo Maternal GP- NHL Maternal GM- ovarian, breast, uterine cancer Sister- [facility], [place] SOCIAL AND FUNCTIONAL HISTORY Tobacco: no history of smoking, previously chewed tobacco EtOH; now socially on weekends, was drinking more frequently previously Drugs: none 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, 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 Home: [place], [place] PRIOR TO ADMISSION MEDICATIONS Medications Prior [...] for: HGBA1C No results found for: TSH, G2GNQDE, D6SHWFN, THYROIDAB Lab Results Component Value Date SPECGRAVU [...] at admission by myself Malena Junior MD [phone] Cosigned by Lamar Sherman MD at 01/04/2019 2:06 PM DRAMATIC ARTS HISTORIAN ATIC ARTS HISTORIAN ATIC ARTS HISTORIAN Associated attestation - Lamar Sherman MD - 01/04/2019 2:06 PM DRAMATIC ARTS HISTORIAN I have seen and examined the patient [...] Kelsey NP Authorized by: Fabi Kelsey NP [place] Protocol: RN Notified of Procedure: yes Informed [...] and matched to patient identification: yes Responsible alliance party for transporting specimen(s) to lab determined: yes ATIC ARTS HISTORIAN documented in this encounter Consult Notes * Nina Roach, CALLIE - 01/04/2019 12:27 PM CSTAssociated Order(s): IP [...] Adult Diet Regular Diet effective now Question: ([facility]) Diet type Answer: Regular 01/04/19 0736 [...] good oral intakes as tolerated. Reviewed Dining Rn Home Health and nutrition supplements available, if needed. Pt stated no nutritional needs at this time. RD will continue to follow plan of careand provide additional nutrition interventions as appropriate. GOALS / MONITORING: Goals: Adequate nutrition to meet estimated needs by next assessment Interventions: Encouragement, [place] diet preferences within the limits of nutrition care order Monitoring and Evaluation: Plan of care, PO intake, Weight changes, Appetite Nina Roach RDN, LD ATIC ARTS HISTORIAN documented in this encounter Miscellaneous Notes * [...] Home With Support And Transportation From Family. ATIC ARTS HISTORIAN * Plan of Care - Simin Crespo [...] improve to fullest extent possible Outcome: Progressing ATIC ARTS HISTORIAN * Medical Student - Esther Poe - 01/06/2019 9:38 AM CST Oncology Progress [...] No Known Allergies Current Facility-Administered Medications: ??? [MAR Hold] acetaminophen (TYLENOL) tablet 650 mg, 650 mg, oral, Q8H PRN, Malena Junior MD ??? [MAR Hold] guaiFENesin ER (MUCINEX) extended release tablet 600 mg, 600 mg, oral, BID, Malena Junior MD, 600 mg at 01/05/192056 ??? [MAR Hold] levoFLOXacin (LEVAQUIN) tablet 750 mg, 750 mg, oral, Daily - 0600, Malena Junior MD, 750 mg at 01/06/19 06 ??? lidocaine-EPINEPHrine (XYLOCAINE with EPI) 1 %-1:100,000 injection, , , PRN, Bebe Valdes MD, 6 mL at 01/06/19 0813 ??? [MAR Hold] ondansetron (ZOFRAN) injection 4 mg, 4 mg, intravenous, Q8H PRN, Malena Junior MD,4 mg at 01/04/191701 ??? [MAR Hold] oxyCODONE (ROXICODONE) tablet 5 mg, 5 mg, oral, QID PRN, Malena Junior MD, 5 mg at01/05/192057 ??? [DEC Hold] polyvinyl alcohol-povidone (REFRESH CLASSIC) 1.4-0.6 % [...] PRN, Moni Hernandez CRNA, 8 puff at 01/06/1915 ??? ceFAZolin (ANCEF) injection, , intravenous, PRN, Moni Hernandez CRNA, 2,000 mg at ??? fentaNYL (SUBLIMAZE) preservative free injection, , intravenous, PRN, Moni Hernandez CRNA,50 mcg at 01/06/1930 ??? Lactated Ringer's (LR) infusion, , , Continuous PRN, Moni Hernandez CRNA, Stopped at 01/06/1913 ??? lidocaine PF (XYLOCAINE) 10 mg/mL (1 %) preservative free injection, , , PRN, Moni Hernandez CRNA, 40 mg at 01/06/19 0800 ??? phenylephrine (KOBE-SYNEPHRINE) 0.5 mg/5 mL (100 mcg/mL) premix syringe in 0.9% sodium chloride,, intravenous, PRN, Moni Hernandez CRNA, 100 mcg at 01/06/1929 ??? propofol (DIPRIVAN) IV, , intravenous, PRN, Moni Hernandez CRNA, 20 mg at 01/06/1944 ??? propofol (DIPRIVAN) IV, , intravenous, Continuous PRN, Moni Hernandez CRNA, Stopped at 01/06/1942 ??? sodium chloride 0.9% infusion, , , Continuous PRN, Moni Hernandez CRNA ??? succinylcholine (ANECTINE) injection, , , PRN, Moni Hernandez CRNA, 60 mg at 01/06/19 0800 Review of Systems: Review of systems per [...] valganciclovir 450 mg BID - CMV negative 3/5 ? Access: peripehral DVT ppx: lovenox Diet: adult regular FULL CODE ?? Esther Poe, Medical Student Cosigned by Lamar Sherman MD at 01/07/2019 7:50 AM DRAMATIC ARTS HISTORIAN ATIC ARTS HISTORIAN ATIC ARTS HISTORIAN * Brief Op Note - Violeta Her MD - 01/06/2019 8:00 AM CST Operative Progress Note Attending Surgeon: Bebe Valdes MD Surgical Team: Occupational Health Nurse Supervisor: Melissa Brock RN Scrub: ST Ankit DATE [...] Bebe Valdes MD at 01/06/2019 1:40 PM DRAMATIC ARTS HISTORIAN ATIC ARTS HISTORIAN ATIC ARTS HISTORIAN * Plan of Care - Niurka Hanson [...] will be avoided or minimized Outcome: Progressing ATIC ARTS HISTORIAN * Op Note - Violeta Her MD - 01/06/2019 12:00 AM CST SURGEON BEBE VALDES MD CYLINDER DIE MACHINE HELPER SURGEON JONI QUIÑONEZ MD SECOND ASSISISTANT SURGEON [...] for the remainder. Job ID/VF Job ID: [id number] Cosigned by Bebe Vadles MD at 01/06/2019 1:40 PM DRAMATIC ARTS HISTORIAN ATIC ARTS HISTORIAN * Plan of Care - Simin Crespo [...] will be avoided or minimized Outcome: Progressing ATIC ARTS HISTORIAN * Hospital Course - Emili Tidwell MD [...] wasrecommended by transplant pharmacy. He follows with [facility] Hepatology. # Hx of CMV viremia CMV was last detected on 09/28/18 on PCR screening but was negative on 10/06/18, 11/04/18 and 01/03/19. Pt was continued on home valganciclovir 450 mg BID. ATIC ARTS HISTORIAN ATIC ARTS HISTORIAN ATIC ARTS HISTORIAN ATIC ARTS HISTORIAN ATIC ARTS HISTORIAN * Medical Student - Esther Poe - 01/05/2019 7:50 AM CST Oncology Progress [...] Q12H, Malena Junior MD, Stopped at 01/05/19 0627 Review of Systems: Review of systems per [...] Lamar Sherman MD at 01/05/2019 3:49 PM DRAMATIC ARTS HISTORIAN ATIC ARTS HISTORIAN ATIC ARTS HISTORIAN * Plan of Care - Niurka Hanson [...] will be avoided or minimized Outcome: Progressing ATIC ARTS HISTORIAN * Plan of Care - Johnathan Burrows RN - 01/04/2019 4:47 PM CST Unable To Complete initial Assessment Not In Room Earlier In Shift. ATIC ARTS HISTORIAN * Plan of Care - Vianney Ramos MSW - 01/04/2019 4:25 PM CST SW received order for AD/ DPOA. SW attempted to meet with patient to provide AD paperwork/form. Patient was not available at time of visit as patient with busy with nursing staff. SW to try again at a later time. Vianney Saab LMSW [phone] ATIC ARTS HISTORIAN * Plan of Care - Erica Gifford RN - 01/04/2019 3:12 PM DRAMATIC ARTS HISTORIAN Goals: Clinical Goals for the Shift: monitor [...] will be avoided or minimized Outcome: Progressing ATIC ARTS HISTORIAN * Medical Student - Esther Poe - 01/04/2019 8:39 AM CST Oncology Progress [...] oral, BID, Malena Junior MD,600 mg at 01/04/19826 ??? heparin 100 unit/mL injection 500 Units, 5 mL, IV flush, Once, Fabi Kelsey, RETAIL PROPERTY MANAGER ??? HYDROmorphone (DILAUDID) 1 mg/mL injection - ADS Override Pull, , , , ??? lidocaine (XYLOCAINE) 20 mg/mL (2 %) injection 15 mL, 15 mL, subcutaneous, Once, Fabi Kelsey, RETAIL PROPERTY MANAGER ??? polyvinyl alcohol-povidone (REFRESH CLASSIC) 1.4-0.6 % [...] Lamar Sherman MD at 01/05/2019 2:39 PM DRAMATIC ARTS HISTORIAN ATIC ARTS HISTORIAN ATIC ARTS HISTORIAN * Plan of Care - Tess Nix [...] at midnight for lymph node biopsy. WCM ATIC ARTS HISTORIAN * Plan of Care - Stephanie Lazaro RN - 01/03/2019 7:29 PM CST Goals: Patient will experience normal thermoregulation. Summary: ATIC ARTS HISTORIAN * Medical Student - Esther Poe - [...] 12. R-CHOP x 1, EPOCH-R x 5, NE after C2 (5PS 4), CR p C6 [...] R-CHOP x 1, EPOCH-R x 5 --> NE after C2 (5PS 4), CR p C6 (uptake in small bowel SUV 15) 10/06/17 IT MTX x 1 --> D/c due to severe MANUEL + evidence intracranial hypotention -12/21/17 Admit: PE, spinal headache --> dc'd on [...] without evidence of extrasinus disease Assessment/Plan Mr. Suess is a 23 yo male with c-myc [...] Lamar Sherman MD at 01/05/2019 2:39 PM DRAMATIC ARTS HISTORIAN ATIC ARTS HISTORIAN ATIC ARTS HISTORIAN documented in this encounter Plan of Treatment Scheduled Procedures Name Priority Associated Diagnoses Date/Ti tn COLONOSCOPY Encounter for screening for colorectal cancer in high risk patient Family history of rectal cancer documented as of this encounter Procedures Procedure Name Priority Date/Time Associated Diagnosis Comments LEUKEMIA/LYMPHOMA STUDIES Routine Gen Lab 01/06/2019 10:00 AM DRAMATIC ARTS HISTORIAN SURGICAL PATHOLOGY Routine 01/06/2019 8: 41 AM DRAMATIC ARTS HISTORIAN High grade B-cell lymphoma (CMS/HCC) EXCISION CYST/LESION/MASS - NECK 01/06/2019 7:40 AM DRAMATIC ARTS HISTORIAN High grade B-cell lymphoma (CMS/HCC) DIFFERENTIAL AUTO Timed 01/06/2019 4:5 5 AM DRAMATIC ARTS HISTORIAN CBC WITH AUTO DIFFERENTIAL Timed 01/06/2019 4:55 AM DRAMATIC ARTS HISTORIAN URIC ACID Timed 01/06/2019 4:55 AM DRAMATIC ARTS HISTORIAN PHOSPHORUS Timed 01/06/2019 4:55 AM DRAMATIC ARTS HISTORIAN MAGNESIUM Timed 01/06/2019 4:55 AM DRAMATIC ARTS HISTORIAN BASIC METABOLIC PANEL Timed 01/06/2019 4:55 AM DRAMATIC ARTS HISTORIAN DIFFERENTIAL AUTO Timed 01/05/2019 3:5 4 PM DRAMATIC ARTS HISTORIAN CBC WITH AUTO DIFFERENTIAL Timed 01/05/2019 3:54 PM DRAMATIC ARTS HISTORIAN APTT Timed 01/05/2019 3:54 PM DRAMATIC ARTS HISTORIAN PROTIME-INR STAT 01/05/2019 3:54 PM DRAMATIC ARTS HISTORIAN CBC WITH AUTO DIFFERENTIAL Routine 01/05/2019 4:31 AM DRAMATIC ARTS HISTORIAN MANUAL DIFFERENTIAL Routine 01/05/2019 4 :31 AM DRAMATIC ARTS HISTORIAN URIC ACID Routine 01/05/2019 4:31 AM DRAMATIC ARTS HISTORIAN PHOSPHORUS Routine 01/05/2019 4:31 AM DRAMATIC ARTS HISTORIAN LACTATE DEHYDROGENASE Routine 01/05/2019 4:31 AM DRAMATIC ARTS HISTORIAN VANCOMYCIN LEVEL TROUGH Timed 01/05/2019 4:31 AM DRAMATIC ARTS HISTORIAN BASIC METABOLIC PANEL Routine 01/05/2019 4:31 AM DRAMATIC ARTS HISTORIAN BIOPSY BONE MARROW Routine 01/04/2019 4: 53 PM DRAMATIC ARTS HISTORIAN High grade B-cell lymphoma (CMS/HCC) FLOW LEUKEMIA/LYMPHOMA Routine 9 11:30 AM DRAMATIC ARTS HISTORIAN SURGICAL PATHOLOGY Routine 01/04/2019 11 :30 AM DRAMATIC ARTS HISTORIAN DIFFERENTIAL AUTO STAT 01/04/2019 8:4 7 AM DRAMATIC ARTS HISTORIAN TACROLIMUS LEVEL, TROUGH Timed 01/04/2019 8:47 AM DRAMATIC ARTS HISTORIAN CBC WITH AUTO DIFFERENTIAL STAT 01/04/2019 8:47 AM DRAMATIC ARTS HISTORIAN URIC ACID STAT 01/04/2019 8:47 AM DRAMATIC ARTS HISTORIAN PHOSPHORUS STAT 01/04/2019 8:47 AM DRAMATIC ARTS HISTORIAN BASIC METABOLIC PANEL STAT 01/04/2019 8:47 AM DRAMATIC ARTS HISTORIAN AEROBIC CULTURE AND GRAM STAIN Routine 01/04/2019 2:51 AM DRAMATIC ARTS HISTORIAN CYTOGENETICS AND GENOMICS Routine 01/04/2019 12:00 AM DRAMATIC ARTS HISTORIAN CYTOMEGALOVIRUS (CMV) DNA, QUANT GEN LAB Routine 01/03/2019 4:27 PM DRAMATIC ARTS HISTORIAN DIFFERENTIAL AUTO Routine 01/03/2019 4:2 7 PM DRAMATIC ARTS HISTORIAN HIV 1/2 ANTIBODY PLUS P24 ANTIGEN Routine 01/03/2019 4:27 PM DRAMATIC ARTS HISTORIAN NADINE BORREGO VIRUS PCR, QUANTITATIVE Routine 01/03/2019 4:27 PM DRAMATIC ARTS HISTORIAN CBC WITH AUTO DIFFERENTIAL Routine 01/03/2019 4:27 PM DRAMATIC ARTS HISTORIAN BLOOD CULTURE STAT 01/03/2019 4:27 PM DRAMATIC ARTS HISTORIAN BLOOD CULTURE STAT 01/03/2019 4:27 PM DRAMATIC ARTS HISTORIAN APTT Routine 01/03/2019 4:27 PM DRAMATIC ARTS HISTORIAN PROTIME-INR Routine 01/03/2019 4:27 PM DRAMATIC ARTS HISTORIAN MAGNESIUM Routine 01/03/2019 4:27 PM DRAMATIC ARTS HISTORIAN COMPREHENSIVE METABOLIC PANEL Routine 01/03/2019 4:27 PM DRAMATIC ARTS HISTORIAN documented in this encounter Results * Leukemia/lymphoma studies (01/06/2019 10:00 AM DRAMATIC ARTS HISTORIAN) Leukemia/Lymp josé manuel Result See separate Surgical Pathology report. [facility] Tissue 01/06/2019 10:0 0 AM DRAMATIC ARTS HISTORIAN 01/06/2019 1:11 PM DRAMATIC ARTS HISTORIAN Narrative [facility] - 01/06/2019 3:02 PM DRAMATIC ARTS HISTORIAN us Anita Gillepsie MD LAB BLOOD ORDERABLES Final Result [facility] Department [place] [address] * Surgical pathology (01/06/2019 8:41 AM DRAMATIC ARTS HISTORIAN) Tissue (Soft tissue biopsy) 01/06/2019 8:41 AM DRAMATIC ARTS HISTORIAN Tissue (Soft tissue biopsy) 01/06/2019 8:45 AM DRAMATIC ARTS HISTORIAN Tissue (Soft tissue biopsy) 01/06/2019 8:45 AM DRAMATIC ARTS HISTORIAN Narrative PATHOLOGY [facility] - 01/16/2019 1:49 PM CDT EPIC results best viewed via link to PDF [facility] Yulisa Garcia Laboratory of Surgical [place] [address] SURGICAL PATHOLOGY REPORT FINAL Patient Name: ?? BEKA NICHOLS Gender: ??M : ??1995 (Age: 23) Address: ??[address] [place], [place] ??[address] Hospital #: ??[id number] Taken:01/06/2019 Received:01/06/2019 Reported: 01/16/2019 Patient Type: BJ Inpatient ?? Service: Oncology Location: [facility] ??[address] Physician(s): ??Bebe Valdes M.D. Kali Cruz M.D. [...] Diagnostic features of lymphoma are not seen jb2/01/11/2019 12:38 By this signature, I attest that [...] 94% of the overall cellularity and include [id number] CD20- positive B cell population (49%) with [...] pink-preston tissue. ??Labeled A1 to A2 - internet sales representative sections of the largest lymph node; A3 - internet sales representative sections of the smaller lymph [...] white fibrous tissue. ??Labeled C1. ??Jar 1 mr/01/06/2019 12:39 SADE Dye By this signature, I attest that the above diagnosis is based upon my personal examination of the slides(and/or other material). The performance characteristics of some immunohistochemical stains, fluorescence in-situ hybridization tests and immunophenotyping by flow cytometry cited in this report (if any) were determined by the Surgical Pathology Department at [facility] as part of an ongoing quality supervisor program and in compliance with federally mandated [...] determined by the Surgical Pathology Department of [facility]. ??It has not been cleared or approved by the U. [place]. Food and Drug Administration. IMAGES AND SCANNED DOCUMENTS, IF INCLUDED, ONLY VIEWABLE IN PDF VERSION OF REPORT Bebe Valdes MD LAB PATHOLOGY ORDERABLES Final Result [facility] 3rd Floor [place], [place] [phone] * (ABNORMAL) Basic metabolic panel (01/06/2019 4:55 AM DRAMATIC ARTS HISTORIAN) Sodium 138 135 - 145 mmol/L [facility] Potassium, pl 4.9 3.3 - 4.9 mmol/L [facility] Comment:Hemolyzed; (++); pot assium value may be falsely elevated by as much as 0.3 - 0.5 mmol/L. Suggest redraw and reanalysis. Chloride 106 97 - 110 mmol/L [facility] CO2 25 22 - 32 mmol/L [facility] Anion gap 7 2 - 15 mmol/L [facility] BUN 8 8 - 25 mg/dL [facility] Creatinine 0.74(L) 0.80 - 1.30 mg/dL [facility] Glucose 87 70 - 199 mg/dL [facility] Comment: Interpretive Data Fasting glucose >/= [...] 2017. Calcium 8.9 8.5 - 10.3 mg/dL [facility] Blood specimen (specimen) 01/06/2019 4:55 AM DRAMATIC ARTS HISTORIAN 01/06/2019 5:04 AM DRAMATIC ARTS HISTORIAN Narrative [facility] - 01/06/2019 5:39 AM DRAMATIC ARTS HISTORIAN Anita Gillespie MD LAB BLOOD ORDERABLES Final Result [facility] Department [place] [address] * (ABNORMAL) Differential, auto (01/06/2019 4:55 AM DRAMATIC ARTS HISTORIAN) Neutrophil abs 7.4(H) 1.7 - 6.5 K/cumm [facility] Imm gran abs 0.3(H) 0.0 - 0.1 K/cumm [facility] Lymphocyte abs 2.2 0.8 - 3.3 K/cumm [facility] Monocyte abs 2.6(H) 0.2 - 0.8 K/cumm [facility] Eosinophil abs 0.2 0.0 - 0.5 K/cumm [facility] Basophil abs 0.0 0.0 - 0.1 K/cumm [facility] Neutrophil pct 57.9 % [facility] Comment: Interpretive Data Percent cell count reference ranges are not reported, since discordance with absolute values may lead to misinterpretation of CBC data. Current Interpretive Data was last revised on 2018. Imm gran pct 2.6 % [facility] Comment: Interpretive Data Percent cell count reference ranges are not reported, since discordance with absolute values may lead to misinterpretation of CBC data. Current Interpretive Data was last revised on 2018. Lymphocyte pct 17.2 % [facility] Comment: Interpretive Data Percent cell count reference ranges are not reported, since discordance with absolute values may lead to misinterpretation of CBC data. Current Interpretive Data was last revised on 2018. Monocyte pct 20.1 % [facility] Comment: Interpretive Data Percent cell count reference ranges are not reported, since discordance with absolute values may lead to misinterpretation of CBC data. Current Interpretive Data was last revised on 2018. Eosinophil pct 1.8 % [facility] Comment: Interpretive Data Percent cell count reference ranges are not reported, since discordance with absolute values may lead to misinterpretation of CBC data. Current Interpretive Data was last revised on 2018. Basophil pct 0.4 % [facility] Comment: Interpretive Data Percent cell count reference ranges are not reported, since discordance with absolute values may lead to misinterpretation of CBC data. Current Interpretive Data was last revised on 2018. Blood specimen (specimen) 01/06/2019 4:55 AM DRAM[employer]IC ARTS HISTORIAN 01/06/2019 5:08 AM DRAMATIC ARTS HISTORIAN Marci [facility] - 01/06/2019 5:17 AM DRAMATIC ARTS HISTORIAN us Anita Gillespie MD LAB BLOOD ORDERABLES Final Result [facility] Department [place] [address] * Uric acid (01/06/2019 4:55 AM DRAMATIC ARTS HISTORIAN) Uric acid 3.0 3.0 - 8.0 mg/dL [facility] Blood specimen (specimen) 01/06/2019 4:55 AM DRAM[employer]IC ARTS HISTORIAN 01/06/2019 5:04 AM DRAMATIC ARTS HISTORIAN Marci [facility] - 01/06/2019 5:39 AM DRAMATIC ARTS HISTORIAN us Anita Gillespie MD LAB BLOOD ORDERABLES Final Result Performing Organization Address [facility] [place] [address] * Phosphorus (01/06/2019 4:55 AM DRAMATIC ARTS HISTORIAN) [facility] Phosphorus, pl 3.3 2.3 - 4.5 mg/dL [facility] Blood specimen (specimen) 01/06/2019 4:55 AM DRAMATIC ARTS HISTORIAN 01/06/2019 5:04 AM DRAMATIC ARTS HISTORIAN Narrative [facility] - 01/06/2019 5:39 AM DRAMATIC ARTS HISTORIAN us Anita Gillespie MD LAB BLOOD ORDERABLES Final Result Performing Organization Address [facility] [place] [address] * Magnesium (01/06/2019 4:55 AM DRAMATIC ARTS HISTORIAN) [facility] Magnesium 1.8 1.4 - 2.5 mg/dL [facility] Blood specimen (specimen) 01/06/2019 4:55 AM DRAMATIC ARTS HISTORIAN 01/06/2019 5:04 AM DRAMATIC ARTS HISTORIAN Narrative [facility] - 01/06/2019 5:39 AM DRAMATIC ARTS HISTORIAN us Anita Gillespie MD LAB BLOOD ORDERABLES Final Result Performing Organization Address [facility] [place] [address] * (ABNORMAL) CBC with auto differential (01/06/2019 4:55 AM DRAMATIC ARTS HISTORIAN) [facility] WBC 12.8(H) 3.8 - 9.9 K/cumm [facility] Hgb 13.9 13.0 - 17.5 g/dL [facility] Hct 39.6 38.9 - 50.3 % [facility] Plt 410(H) 150 - 400 K/cumm [facility] MPV 10.1 9.1 - 12.3 fL [facility] RBC 4.21(L) 4.30 - 5.80 M/cumm [facility] MCV 94.1 81.3 - 96.4 fL [facility] MCH 33.0 27.1 - 33.3 pg [facility] MCHC 35.1 32.3 - 35.7 g/dL [facility] RDW CV 14.0 11.1 - 14.9 % [facility] RDW SD 49.0(H) 35.7 - 48.1 fL [facility] NRBC abs 0.00 0.00 - 0.01 K/cumm [facility] Blood specimen (specimen) 01/06/2019 4:55 AM DRAMATIC ARTS HISTORIAN 01/06/2019 5:08 AM DRAMATIC ARTS HISTORIAN Narrative [facility] - 01/06/2019 5:17 AM DRAMATIC ARTS HISTORIAN Anita Gillespie MD LAB BLOOD ORDERABLES Final Result [facility] Department [place] [address] * (ABNORMAL) Differential, auto (01/05/2019 3:54 PM DRAMATIC ARTS HISTORIAN) Neutrophil abs 7.3(H) 1.7 - 6.5 K/cumm [facility] Imm gran abs 0.3(H) 0.0 - 0.1 K/cumm [facility] Lymphocyte abs 2.1 0.8 - 3.3 K/cumm [facility] Monocyte abs 1.9(H) 0.2 - 0.8 K/cumm [facility] Eosinophil abs 0.1 0.0 - 0.5 K/cumm [facility] Basophil abs 0.1 0.0 - 0.1 K/cumm [facility] Neutrophil pct 61.8 % [facility] Comment: Interpretive Data Percent cell count reference ranges are not reported, since discordance with absolute values may lead to misinterpretation of CBC data. Current Interpretive Data was last revised on 2018. Imm gran pct 2.3 % [facility] Comment: Interpretive Data Percent cell count reference ranges are not reported, since discordance with absolute values may lead to misinterpretation of CBC data. Current Interpretive Data was last revised on 2018. Lymphocyte pct 17.9 % [facility] Comment: Interpretive Data Percent cell count reference ranges are not reported, since discordance with absolute values may lead to misinterpretation of CBC data. Current Interpretive Data was last revised on 2018. Monocyte pct 16.2 % [facility] Comment: Interpretive Data Percent cell count reference ranges are not reported, since discordance with absolute values may lead to misinterpretation of CBC data. Current Interpretive Data was last revised on 2018. Eosinophil pct 1.0 % [facility] Comment: Interpretive Data Percent cell count reference ranges are not reported, since discordance with absolute values may lead to misinterpretation of CBC data. Current Interpretive Data was last revised on 2018. Basophil pct 0.8 % [facility] Comment: Interpretive Data Percent cell count reference ranges are not reported, since discordance with absolute values may lead to misinterpretation of CBC data. Current Interpretive Data was last revised on 2018. Blood specimen (specimen) 01/05/2019 3:54 PM DRAM[employer]IC [employer]S HISTORIAN 01/05/2019 4:06 PM DRAMATIC ARTS HISTORIAN Narrative [facility] - 01/05/2019 4:20 PM DRAM[employer]IC [employer]S HISTORIAN us Anita Gillespie MD LAB BLOOD ORDERABLES Final Result [facility] Department [place] [address] * (ABNORMAL) CBC with auto differential (01/05/2019 3:54 PM DRAMATIC [employer]S HISTORIAN) WBC 11.8(H) 3.8 - 9.9 K/cumm [facility] Hgb 15.6 13.0 - 17.5 g/dL [facility] Hct 44.9 38.9 - 50.3 % [facility] Plt 457(H) 150 - 400 K/cumm [facility] MPV 10.2 9.1 - 12.3 fL [facility] RBC 4.71 4.30 - 5.80 M/cumm [facility] MCV 95.3 81.3 - 96.4 fL [facility] MCH 33.1 27.1 - 33.3 pg [facility] MCHC 34.7 32.3 - 35.7 g/dL [facility] RDW CV 14.2 11.1 - 14.9 % [facility] RDW SD 49.7(H) 35.7 - 48.1 fL [facility] NRBC abs 0.00 0.00 - 0.01 K/cumm [facility] Blood specimen (specimen) 01/05/2019 3:54 PM DRAM[employer]IC [employer]S HISTORIAN 01/05/2019 4:06 PM DRAMATIC ARTS HISTORIAN Narrative [facility] - 01/05/2019 4:20 PM DRAMATIC [employer]S HISTORIAN us Anita Gillespie MD LAB BLOOD ORDERABLES Final Result Performing Organization Address [facility] Co de Phone Number [facility] Department [place] [address] * aPTT (01/05/2019 3:54 PM DRAMATIC ARTS HISTORIAN) Pathologist [facility] aPTT 31.7 25.0 - 37.0 sec [facility] Comment: Interpretive Data Therapeutic heparin range:60.0 - 94.0 sec based on correlation with therapeutic heparin activity range of 0.3 -0.7 Units/mL. Current interpretive data was last revised on 2011. Blood specimen (specimen) 01/05/2019 3:54 PM DRAM[employer]IC [employer]S HISTORIAN 01/05/2019 4:05 PM DRAMATIC ARTS HISTORIAN Narrative [facility] - 01/05/2019 4:40 PM DRAMATIC ARTS HISTORIAN Anita Gillespie MD LAB BLOOD ORDERABLES Final Result Performing Organization Address City/[facility]/ZIP Co de Phone Number [facility] [place] [address] * Protime-INR (01/05/2019 3:54 PM DRAMATIC ARTS HISTORIAN) Pathologist [facility] PT 11.8 8.5 - 13.0 sec [facility] INR 1.10 0.80 - 1.21 [facility] Comment: Interpretive Data Inpatient therapeutic ranges* Atrial fibrillation ?2.0-3.0 INR Venous thrombo-embolism ?2.0-3.0 INR Bioprosthetic heart valve ?* Mechanical heart valve, bileaflet or tilting disk,aortic position ? 2.0-3.0 INR All other,or bileaflet or tilting disk, in mitral position ? 2.5-3.5 INR *See the pharmacy resource directory (PHRED) for an updated copy of the Tool Book at [email or web address] Current Interpretive Data was last revised 2012. Blood specimen (specimen) 01/05/2019 3:54 PM DRAMATIC ARTS HISTORIAN 01/05/2019 4:05 PM DRAMATIC ARTS HISTORIAN Narrative [facility] - 01/05/2019 4:40 PM DRAMATIC ARTS HISTORIAN Anita Gillespie MD LAB BLOOD ORDERABLES Final Result Performing Organization Address City/State/[facility] Co de Phone Number [facility] Department [place] [address] * (ABNORMAL) Manual Differential (01/05/2019 4:31 AM DRAMATIC ARTS HISTORIAN) [facility] Differential Manual [facility] Cells Counted 117 [facility] Neutrophil abs 8.0(H) 1.7 - 6.5 K/cumm [facility] Imm gran abs 0.2(H) 0.0 - 0.1 K/cumm [facility] Lymphocyte abs 2.2 0.8 - 3.3 K/cumm [facility] Monocyte abs 1.7(H) 0.2 - 0.8 K/cumm [facility] Eosinophil abs 0.2 0.0 - 0.5 K/cumm [facility] Neutrophil pct 65.0 % [facility] Comment: Interpretive Data Percent cell count reference ranges are not reported, since discordance with absolute values may lead to misinterpretation of CBC data. Current Interpretive Data was last revised on 2018. Lymphocyte pct 11.1 % [facility] Comment: Interpretive Data Percent cell count reference ranges are not reported, since discordance with absolute values may lead to misinterpretation of CBC data. Current Interpretive Data was last revised on 2018. Monocyte pct 13.7 % [facility] Comment: Interpretive Data Percent cell count reference ranges are not reported, since discordance with absolute values may lead to misinterpretation of CBC data. Current Interpretive Data was last revised on 2018. Eosinophil pct 1.7 % [facility] Comment: Interpretive Data Percent cell count reference ranges are not reported, since discordance with absolute values may lead to misinterpretation of CBC data. Current Interpretive Data was last revised on 2018. Metamyelocyte pct 0.9(H) 0.0 - 0.0 % [facility] Promyelocyte pct 0.8(H) 0.0 - 0.0 % [facility] Variant lymph pct 6.8(H) 0.0 - 0.0 % [facility] Blood specimen (specimen) 01/05/2019 4:31 AM DRAMATIC ARTS HISTORIAN 01/05/2019 5:32 AM DRAMATIC ARTS HISTORIAN Narrative [facility] - 01/05/2019 6:35 AM DRAMATIC ARTS HISTORIAN us Anita Gillespie MD LAB BLOOD ORDERABLES Final Result [facility] Department of Laboratories [place], [place] [id number] * (ABNORMAL) Vancomycin, trough Please draw 30 minutes before next vancomycin dose. (01/05/2019 4:31 AM DRAMATIC ARTS HISTORIAN) Vancomycin trough 4.7(L) 10.0 - 20.9 mcg/mL [facility] Blood specimen (specimen) 01/05/2019 4:31 AM DRAMATIC ARTS HISTORIAN 01/05/2019 5:28 AM DRAMATIC ARTS HISTORIAN Narrative [facility] - 01/05/2019 5:59 AM DRAMATIC ARTS HISTORIAN Please draw 30 minutes before next vancomycin dose. Sherry Grande MD LAB BLOOD ORDERABLES F inal Result [facility] Department [place] [address] * (ABNORMAL) Basic metabolic panel (01/05/2019 4:31 AM DRAMATIC ARTS HISTORIAN) Pathologist [facility] Sodium 140 135 - 145 mmol/L [facility] Potassium, pl 4.5 3.3 - 4.9 mmol/L [facility] Chloride 104 97 - 110 mmol/L [facility] CO2 25 22 - 32 mmol/L [facility] Anion gap 11 2 - 15 mmol/L [facility] BUN 10 8 - 25 mg/dL [facility] Creatinine 0.79(L) 0.80 - 1.30 mg/dL [facility] Glucose 83 70 - 199 mg/dL [facility] Comment: Interpretive Data Fasting glucose >/= [...] 2017. Calcium 9.0 8.5 - 10.3 mg/dL [facility] Blood specimen (specimen) 01/05/2019 4:31 AM DRAMATIC ARTS HISTORIAN 01/05/2019 5:28 AM DRAMATIC ARTS HISTORIAN Narrative [facility] - 01/05/2019 5:56 AM DRAMATIC ARTS HISTORIAN Anita Gillespie MD LAB BLOOD ORDERABLES Final Result [facility] [place] [address] * (ABNORMAL) CBC with auto differential (01/05/2019 4:31 AM DRAMATIC ARTS HISTORIAN) WBC 12.4(H) 3.8 - 9.9 K/cumm [facility] Hgb 13.8 13.0 - 17.5 g/dL [facility] Hct 39.9 38.9 - 50.3 % [facility] Plt 411(H) 150 - 400 K/cumm [facility] MPV 10.3 9.1 - 12.3 fL [facility] RBC 4.17(L) 4.30 - 5.80 M/cumm [facility] MCV 95.7 81.3 - 96.4 fL [facility] MCH 33.1 27.1 - 33.3 pg [facility] MCHC 34.6 32.3 - 35.7 g/dL [facility] RDW CV 14.2 11.1 - 14.9 % [facility] RDW SD 49.6(H) 35.7 - 48.1 fL [facility] NRBC abs 0.00 0.00 - 0.01 K/cumm [facility] Blood specimen (specimen) 01/05/2019 4:31 AM DRAMATIC ARTS HISTORIAN 01/05/2019 5:28 AM DRAMATIC ARTS HISTORIAN Narrative [facility] - 01/05/2019 6:35 AM DRAMATIC ARTS HISTORIAN Anita Gillespie MD LAB BLOOD ORDERABLES Edite d Result - Final [facility] [place] [address] * Phosphorus (01/05/2019 4:31 AM DRAMATIC ARTS HISTORIAN) Phosphorus, pl 3.3 2.3 - 4.5 mg/dL [facility] Blood specimen (specimen) 01/05/2019 4:31 AM DRAMATIC ARTS HISTORIAN 01/05/2019 5:28 AM DRAMATIC ARTS HISTORIAN Narrative [facility] - 01/05/2019 6:21 AM DRAMATIC ARTS HISTORIAN us Anita Gillespie MD LAB BLOOD ORDERABLES Final Result Performing Organization Address [facility] Co de Phone Number [facility] [place] [address] * Lactate dehydrogenase (LD) (01/05/2019 4:31 AM DRAMATIC ARTS HISTORIAN) Lactate dehydrogenase (LDH) 232 100 - 250 Units/L [facility] Blood specimen (specimen) 01/05/2019 4:31 AM DRAMATIC ARTS HISTORIAN 01/05/2019 5:28 AM DRAMATIC ARTS HISTORIAN Narrative [facility] - 01/05/2019 5:56 AM DRAMATIC ARTS HISTORIAN us Anita Gillespie MD LAB BLOOD ORDERABLES Final Result Performing Organization Address [facility] de Phone Number [facility] [place] [address] * Uric acid (01/05/2019 4:31 AM DRAMATIC ARTS HISTORIAN) Uric acid 3.5 3.0 - 8.0 mg/dL [facility] Blood specimen (specimen) 01/05/2019 4:31 AM DRAMATIC ARTS HISTORIAN 01/05/2019 5:28 AM DRAMATIC ARTS HISTORIAN Narrative [facility] - 01/05/2019 6:21 AM DRAMATIC ARTS HISTORIAN us Anita Gillespie MD LAB BLOOD ORDERABLES Final Result Performing Organization Address [facility] [place] [address] * BIOPSY BONE MARROW (01/04/2019 4:53 PM DRAMATIC ARTS HISTORIAN) Narrative Fabi Kelsey NP - 01/04/2019 4:53 PM DRAMATIC ARTS HISTORIAN Fabi Kelsey NP ? 01/09/2019 ??4:35 PM Bone Marrow Biopsy Date/Time: 01/04/2019 11:00 AM Performed by: Fabi Kelsey NP Authorized by: Fabi Kelsey NP [place] Protocol: RN Notified of Procedure: yes ?? [...] matched to patient identification: yes ?? Responsible alliance party for transporting specimen(s) to lab determined: yes ?? us Fabi Solares NP IN CLINIC/BEDSIDE ORDERABLE S Edited Result - Final * Surgical pathology (01/04/2019 11:30 AM DRAMATIC ARTS HISTORIAN) 01/04/2019 11:3 0 AM DRAMATIC ARTS HISTORIAN 01/04/2019 1:03 PM DRAMATIC ARTS HISTORIAN Narrative 01/06/2019 4:35 PM DRAMATIC ARTS HISTORIAN EPIC results best viewed via link to PDF [facility] Yulisa Garcia Laboratory of Surgical Pathology [facility], [place] [address] SURGICAL PATHOLOGY REPORT FINAL Patient Name: ?? BEKA NICHOLS Gender: ??M : ??1995 (Age: 23) Address: ??[address] [place], [place] ??[address] Hospital #: ??[id number] Taken:01/04/2019 Received:01/04/2019 Reported: 01/06/2019 Patient Type: [facility] Inpatient ?? Service: Oncology Location: [facility] ??[address] Physician(s): ??Lucrecia Looney NP Diagnosis: Bone marrow, [...] mab/01/04/2019 15:51 SADE Chapin ? CBC: ?Date: 01/04/19 ? WBCs: 17.0x10^3/mcl ? RBCs: 4.41x10^6/mcl ? [...] [facility] as part of an ongoing quality supervisor program and in compliance with federally mandated [...] determined by the Surgical Pathology Department of [facility]. ??It has not been cleared or approved by the U. S. Food and Drug Administration. IMAGES AND SCANNED DOCUMENTS, IF INCLUDED, ONLY VIEWABLE IN PDF VERSION OF REPORT Lucrecia Looney NP LAB PATHOLOGY ORDERABLES Fi nal Result * Flow Leukemia/Lymphoma Bone marrow (01/04/2019 11:30 AM DRAMATIC ARTS HISTORIAN) Leukemia/Lymp josé manuel Result See separate Surgical Pathology report. [facility] Bone marrow 01/04/2019 11:3 0 AM DRAMATIC ARTS HISTORIAN 01/04/2019 1:02 PM DRAMATIC ARTS HISTORIAN Narrative [facility] - 01/05/2019 8:07 AM DRAMATIC ARTS HISTORIAN Anita Gillespie MD LAB PATHOLOGY ORDERABLES F inal Result Performing Organization Address City/[facility]/ZIP Co de Phone Number [facility] Department [place] [address] * Uric acid (01/04/2019 8:47 AM DRAMATIC ARTS HISTORIAN) [facility] Uric acid 3.0 3.0 - 8.0 mg/dL [facility] Blood specimen (specimen) 01/04/2019 8:47 AM DRAMATIC ARTS HISTORIAN 01/04/2019 9:15 AM DRAMATIC ARTS HISTORIAN Narrative [facility] - 01/04/2019 10:13 AM DRAMATIC ARTS HISTORIAN Anita Gillespie MD LAB BLOOD ORDERABLES Final Result Performing Organization Address City/[facility]/ZIP Co de Phone Number [facility] Department [place] [address] * Phosphorus (01/04/2019 8:47 AM DRAMATIC ARTS HISTORIAN) Pathologist [facility] Phosphorus, pl 2.8 2.3 - 4.5 mg/dL [facility] Blood specimen (specimen) 01/04/2019 8:47 AM DRAMATIC ARTS HISTORIAN 01/04/2019 9:15 AM DRAMATIC ARTS HISTORIAN Narrative [facility] - 01/04/2019 10:13 AM DRAMATIC ARTS HISTORIAN us Anita Gillespie MD LAB BLOOD ORDERABLES Final Result [facility] Department [place] [address] * (ABNORMAL) Differential, auto (01/04/2019 8:47 AM DRAMATIC ARTS HISTORIAN) Neutrophil abs 10.7(H) 1.7 - 6.5 K/cumm [facility] Imm gran abs 0.2(H) 0.0 - 0.1 K/cumm [facility] Lymphocyte abs 2.5 0.8 - 3.3 K/cumm [facility] Monocyte abs 3.4(H) 0.2 - 0.8 K/cumm [facility] Eosinophil abs 0.1 0.0 - 0.5 K/cumm [facility] Basophil abs 0.1 0.0 - 0.1 K/cumm [facility] Neutrophil pct 62.7 % [facility] Comment: Interpretive Data Percent cell count reference ranges are not reported, since discordance with absolute values may lead to misinterpretation of CBC data. Current Interpretive Data was last revised on 2018. Imm gran pct 1.5 % [facility] Comment: Interpretive Data Percent cell count reference ranges are not reported, since discordance with absolute values may lead to misinterpretation of CBC data. Current Interpretive Data was last revised on 2018. Lymphocyte pct 14.8 % [facility] Comment: Interpretive Data Percent cell count reference ranges are not reported, since discordance with absolute values may lead to misinterpretation of CBC data. Current Interpretive Data was last revised on 2018. Monocyte pct 19.9 % [facility] Comment: Interpretive Data Percent cell count reference ranges are not reported, since discordance with absolute values may lead to misinterpretation of CBC data. Current Interpretive Data was last revised on 2018. Eosinophil pct 0.6 % [facility] Comment: Interpretive Data Percent cell count reference ranges are not reported, since discordance with absolute values may lead to misinterpretation of CBC data. Current Interpretive Data was last revised on 2018. Basophil pct 0.5 % [facility] Comment: Interpretive Data Percent cell count reference ranges are not reported, since discordance with absolute values may lead to misinterpretation of CBC data. Current Interpretive Data was last revised on 2018. Blood specimen (specimen) 01/04/2019 8:47 AM DRAMATIC ARTS HISTORIAN 01/04/2019 9:15 AM DRAMATIC ARTS HISTORIAN Narrative [facility] - 01/04/2019 9:32 AM DRAMATIC ARTS HISTORIAN us Malena Junior MD LAB BLOOD ORDERABLES Final Res ult [facility] Department [place] [address] * (ABNORMAL) CBC with auto differential (01/04/2019 8:47 AM DRAMATIC ARTS HISTORIAN) WBC 17.0(H) 3.8 - 9.9 K/cumm [facility] Hgb 14.5 13.0 - 17.5 g/dL [facility] Hct 42.2 38.9 - 50.3 % [facility] Plt 437(H) 150 - 400 K/cumm [facility] MPV 10.1 9.1 - 12.3 fL [facility] RBC 4.41 4.30 - 5.80 M/cumm [facility] MCV 95.7 81.3 - 96.4 fL [facility] MCH 32.9 27.1 - 33.3 pg [facility] MCHC 34.4 32.3 - 35.7 g/dL [facility] RDW CV 13.6 11.1 - 14.9 % [facility] RDW SD 48.4(H) 35.7 - 48.1 fL [facility] NRBC abs 0.00 0.00 - 0.01 K/cumm [facility] Blood specimen (specimen) 01/04/2019 8:47 AM DRAMATIC ARTS HISTORIAN 01/04/2019 9:15 AM DRAMATIC ARTS HISTORIAN Narrative [facility] - 01/04/2019 9:32 AM DRAMATIC ARTS HISTORIAN us Malena Junior MD LAB BLOOD ORDERABLES Final Res ult [facility] Department [place] [address] * (ABNORMAL) Basic metabolic panel (01/04/2019 8:47 AM DRAMATIC ARTS HISTORIAN) Sodium 138 135 - 145 mmol/L [facility] Potassium, pl 4.8 3.3 - 4.9 mmol/L [facility] Comment:Hemolyzed; (++); pot assium value may be falsely elevated by as much as 0.3 - 0.5 mmol/L. Suggest redraw and reanalysis. Chloride 103 97 - 110 mmol/L [facility] CO2 25 22 - 32 mmol/L [facility] Anion gap 10 2 - 15 mmol/L [facility] BUN 8 8 - 25 mg/dL [facility] Creatinine 0.75(L) 0.80 - 1.30 mg/dL [facility] Glucose 88 70 - 199 mg/dL [facility] Comment: Interpretive Data Fasting glucose >/= [...] 2017. Calcium 9.4 8.5 - 10.3 mg/dL [facility] Blood specimen (specimen) 01/04/2019 8:47 AM DRAMATIC ARTS HISTORIAN 01/04/2019 9:15 AM DRAMATIC ARTS HISTORIAN Narrative [facility] - 01/04/2019 10:13 AM DRAMATIC ARTS HISTORIAN us Malena Junior MD LAB BLOOD ORDERABLES Final Res ult Performing Organization Address City/[facility]/ZIP Co de Phone Number [facility] Department [place] [address] * Tacrolimus level trough (01/04/2019 8:47 AM DRAMATIC ARTS HISTORIAN) Tacrolimus, trough 5.1 ng/mL [facility] Comment: Interpretive Data The therapeutic range for tacrolimus can vary by transplant organ type and sample timing but a trough range of 5 - 15 ng/mL is typical. Testing performed by liquid chromatography-tandem mass spectrometry (LC- MS/MS).This test was developed using an analyte specific reagent. Its performance characteristics were determined by the [facility] in a manner consistent with CLIA requirements. This test has not been cleared or approved by the U.S. Food and Drug Administration. Current interpretive data was last revised on 2016. Blood specimen (specimen) 01/04/2019 8:47 AM DRAMATIC ARTS HISTORIAN 01/04/2019 9:15 AM DRAMATIC ARTS HISTORIAN Narrative [facility] - 01/04/2019 12:12 PM DRAMATIC ARTS HISTORIAN Anita Gillespie MD LAB BLOOD ORDERABLES Final Result [facility] Department [place] [address] * Aerobic culture and gram stain Sputum Lung (01/04/2019 2:51 AM DRAMATIC ARTS HISTORIAN) Direct Specimen Exam Stain: Few squamous epithelial cells seen. Abundant polymorphonuclear leukocytes seen. Moderate Mixed bacterial bret seen on gram stain. [facility] Report Final Report: Growth indicates upper respiratory bret. [facility] Organism GROWTH INDICATES UPPER RESPIRATORY BRET. [facility] Sputum (Lung) 01/04/2019 2:5 1 AM DRAM[employer]IC ARTS HISTORIAN 01/04/2019 7:18 AM DRAMATIC ARTS HISTORIAN Narrative [facility] - 01/13/2019 3:26 PM CDT Testing performed by [facility] ([phone]) Specimens submitted from normally sterile body sites will have all bacterial morphotypes identified. ??Specimens that contain grossly mixed bret and/or are from body sites that are not normally sterile will be examined for Staphylococcus aureus, Pseudomonas aeruginosa, beta-hemolytic strep, vancomycin-resistant Enterococcus and fungus. ??If any of these are isolated, the organism will be reported. Current interpretive data was last revised on 2017. us Anita Gillespie MD LAB MICROBIOLOGY - GENERAL ORDERABLES Final Result [facility] Department [place] [address] * Cytogenetics/Genomics (01/04/2019 12:00 AM DRAMATIC ARTS HISTORIAN) 01/04/2019 01/04/2019 Narrative 01/27/2019 9:28 AM CDT [facility] results best viewed via link to PDF [facility] Department of Pathol [facility] [place] [address] ? Patient Information Name: ??BEKA NICHOLS Gender: ??M : ??1995 (Age: 23) Tissue: ??Bone Marrow w/ FISH Visit Information Hospital #: ? [id number] Facility: ? [facility] Service: ? [facility] Location: ? [facility] ??[id number] Patient Type: ? [facility] Inpatient ? Specimen Information: Culture #: ??[id number] Date Collected: ??01/04/2019 Date Accessioned: ??01/04/2019 Date [...] and Signed Out By Selma Reyes, PhD, [facility] ??Date Reported: ??01/27/2019 Signal Timer, Cytogenomics and Molecular Pathology Development Director Professor, Division of Laboratory and Genomic Medicine FLUORESCENCE IN-SITU HYBRIDIZATION [FISH] ?? Karyotype: nuc lalo(MYCx2)[200] Diagnosis: FISH FINDINGS: ? NO EVIDENCE OF MYC (8q) REARRANGEMENT; ? NO EVIDENCE OF TRISOMY OF MYC (8q) INTERPRETATION: FISH evaluation for a MYC rearrangement was performed on nuclei with the LSI MYC Dual Color, Break Apart Rearrangement Probe ([employer] at 8q24 and is interpreted as NORMAL. ??No rearrangement was observed in 200/200 nuclei, which is within the normal range established for this probe in the Clinical Genomics Laboratory at [facility]. ??Up to 1% of cells in normal [...] developed and its performance characteristics determined by [facility]. It has not been cleared or approved by the FDA. The laboratory is regulated under CLIA as qualified to perform high-complexity testing. This test is used for clinical purposes. It should not be regarded as investigational or for research. ?? Report Electronically Reviewed and Signed Out By Selma Reyes, PhD Date Reported: ??01/05/2019 Signal Timer, Cytogenomics and Molecular Pathology Development Director Professor, Division of Laboratory and Genomic Medicine us Lucrecia Looney RETAIL PROPERTY MANAGER LAB GENETIC TESTING Final R esult * HIV 1/2 Antibody plus p24 Antigen (01/03/2019 4:27 PM DRAMATIC ARTS HISTORIAN) [facility] HIV 1/2 ab + p24 ag Nonreactive Nonreactive [facility] Comment: Nonreactive for HIV-1 antigen and HIV-1/HIV-2 antibodies. No laboratory evidence of HIV infection. If acute HIV infection is suspected, consider testing for HIV-1 RNA. Blood specimen (specimen) 01/03/2019 4:27 PM DRAMATIC ARTS HISTORIAN 01/03/2019 4:54 PM DRAMATIC ARTS HISTORIAN Narrative [facility] - 01/03/2019 8:19 PM DRAMATIC ARTS HISTORIAN us Anita Gillespie MD LAB MICROBIOLOGY - GENERAL ORDERABLES Final Result [facility] Department [place] [address] * (ABNORMAL) Differential, auto (01/03/2019 4:27 PM DRAMATIC ARTS HISTORIAN) [facility] Neutrophil abs 8.7(H) 1.7 - 6.5 K/cumm [facility] Imm gran abs 0.6(H) 0.0 - 0.1 K/cumm [facility] Lymphocyte abs 3.4(H) 0.8 - 3.3 K/cumm [facility] Monocyte abs 3.4(H) 0.2 - 0.8 K/cumm [facility] Eosinophil abs 0.1 0.0 - 0.5 K/cumm [facility] Basophil abs 0.1 0.0 - 0.1 K/cumm [facility] Neutrophil pct 53.5 % [facility] Comment: Interpretive Data Percent cell count reference ranges are not reported, since discordance with absolute values may lead to misinterpretation of CBC data. Current Interpretive Data was last revised on 2018. Imm gran pct 3.7 % [facility] Comment: Interpretive Data Percent cell count reference ranges are not reported, since discordance with absolute values may lead to misinterpretation of CBC data. Current Interpretive Data was last revised on 2018. Lymphocyte pct 20.8 % [facility] Comment: Interpretive Data Percent cell count reference ranges are not reported, since discordance with absolute values may lead to misinterpretation of CBC data. Current Interpretive Data was last revised on 2018. Monocyte pct 21.1 % [facility] Comment: Interpretive Data Percent cell count reference ranges are not reported, since discordance with absolute values may lead to misinterpretation of CBC data. Current Interpretive Data was last revised on 2018. Eosinophil pct 0.5 % [facility] Comment: Interpretive Data Percent cell count reference ranges are not reported, since discordance with absolute values may lead to misinterpretation of CBC data. Current Interpretive Data was last revised on 2018. Basophil pct 0.4 % [facility] Comment: Interpretive Data Percent cell count reference ranges are not reported, since discordance with absolute values may lead to misinterpretation of CBC data. Current Interpretive Data was last revised on 2018. Blood specimen (specimen) 01/03/2019 4:27 PM DRAMATIC ARTS HISTORIAN 01/03/2019 4:48 PM DRAMATIC ARTS HISTORIAN Narrative [facility] - 01/03/2019 4:56 PM DRAMATIC ARTS HISTORIAN us Anita Gillespie MD LAB BLOOD ORDERABLES Final Result [facility] Department [place] [address] * Blood culture Blood (01/03/2019 4:27 PM DRAMATIC ARTS HISTORIAN) Report Final Report: No growth [facility] Blood specimen (specimen) 01/03/2019 4:27 PM DRAMATIC ARTS HISTORIAN 01/03/2019 5:54 PM DRAMATIC ARTS HISTORIAN Narrative [facility] - 01/09/2019 7:00 AM [facility] 1. Blood cultures are incubated for 5 [...] organism identification may be performed using the Gertrude Gram-Positive Blood Culture Assay. This assay detects microbial DNA in positive blood culture broth via hybridization of target DNA to capture oligonucleotides on a microarray. This assay has been cleared by the [place] Food and Drug Administration and its performance characteristics have been verified by the [facility]. 5. For questions about this culture, contact the Microbiology Laboratory at [phone]. Interpretive data was last revised on 2018. Anita Gillespie MD LAB MICROBIOLOGY - GENERAL ORDERABLES Final Result [facility] Department [place] [address] * Blood culture Blood (01/03/2019 4:27 PM DRAMATIC ARTS HISTORIAN) Report Final Report: No growth [facility] Blood specimen (specimen) 01/03/2019 4:27 PM DRAMATIC ARTS HISTORIAN 01/03/2019 5:54 PM DRAMATIC ARTS HISTORIAN Narrative [facility] - 01/09/2019 7:00 AM [facility] 1. Blood cultures are incubated for 5 [...] organism identification may be performed using the [employer] Gram-Positive Blood Culture Assay. This assay detects microbial DNA in positive blood culture broth via hybridization of target DNA to capture oligonucleotides on a microarray. This assay has been cleared by the [place] Food and Drug Administration and its performance characteristics have been verified by the [facility]. 5. For questions about this culture, contact the Microbiology Laboratory at [phone]. Interpretive data was last revised on 2018. Anita Gillespie MD LAB MICROBIOLOGY - GENERAL ORDERABLES Final Result [facility] Department [place] [address] * Nadine borrego virus (EBV) PCR, quantitative Blood (01/03/2019 4:27 PM DRAMATIC ARTS HISTORIAN) Report Final Report: Negative for Nadine Borrego Virus [facility] Organism NEGATIVE FOR NADINE BORREGO VIRUS [facility] Blood specimen (specimen) 01/03/2019 4:27 PM DRAMATIC ARTS HISTORIAN 01/03/2019 5:22 PM DRAMATIC ARTS HISTORIAN Narrative [facility] - 01/06/2019 11:16 AM DRAMATIC ARTS HISTORIAN This test was developed using an analyte specific reagent. Its performance characteristics were determined by [facility] in a manner consistent with CLIA requirements. This test has not been cleared or approved by the U.S. Food and Drug Administration. This laboratory-developed, real-time PCR assay has a quantification range of 100 to 5,000,000 IU/mL (2.00 log IU/mL to 6.70 log IU/mL). Anita Gillespie MD LAB MICROBIOLOGY - GENERAL ORDERABLES Final Result Performing Organization Address City/[facility]/ZIP Co de Phone Number [facility] [place] [address] * Cytomegalovirus (CMV) DNA PCR, quantitative Blood (01/03/2019 4:27 PM DRAMATIC ARTS HISTORIAN) [facility] CMV DNA Not Detected [facility] Comment: Interpretive Data: The quantifiable range of this assay is 137 IUnits/mL to 9,100,000 IUnits/mL (2.14 log IUnits/mL to 6.96 log IUnits/mL). Testing was performed by the NIA AmpliPrep/NIA TaqMan CMV Test ([employer] Testing performed at [facility] Current interpretive data was last revised on 17. Blood specimen (specimen) 01/03/2019 4:27 PM DRAMATIC ARTS HISTORIAN 01/04/2019 10:48 AM DRAMATIC ARTS HISTORIAN Narrative [facility] - 01/04/2019 6:02 PM DRAMATIC ARTS HISTORIAN us Anita Gillespie MD LAB MICROBIOLOGY - GENERAL ORDERABLES Final Result Performing Organization Address City/[facility] Co de Phone Number [facility] Department [place] [address] * (ABNORMAL) CBC with auto differential (01/03/2019 4:27 PM DRAMATIC ARTS HISTORIAN) [facility] WBC 16.3(H) 3.8 - 9.9 K/cumm [facility] Hgb 13.2 13.0 - 17.5 g/dL [facility] Hct 37.3(L) 38.9 - 50.3 % [facility] Plt 400 150 - 400 K/cumm [facility] MPV 10.1 9.1 - 12.3 fL [facility] RBC 3.94(L) 4.30 - 5.80 M/cumm [facility] MCV 94.7 81.3 - 96.4 fL [facility] MCH 33.5(H) 27.1 - 33.3 pg [facility] MCHC 35.4 32.3 - 35.7 g/dL [facility] RDW CV 13.7 11.1 - 14.9 % [facility] RDW SD 47.6 35.7 - 48.1 fL [facility] NRBC abs 0.00 0.00 - 0.01 K/cumm [facility] Blood specimen (specimen) 01/03/2019 4:27 PM DRAMATIC ARTS HISTORIAN 01/03/2019 4:48 PM DRAMATIC ARTS HISTORIAN Narrative [facility] - 01/03/2019 4:56 PM DRAMATIC ARTS HISTORIAN Anita Gillespie MD LAB BLOOD ORDERABLES Final Result Performing Organization Address [facility] de Phone Number [facility] [place] [employer] [place] [address] * aPTT (01/03/2019 4:27 PM DRAMATIC ARTS HISTORIAN) aPTT 28.8 25.0 - 37.0 sec [facility] Comment: Interpretive Data Therapeutic heparin range:60.0 - 94.0 sec based on correlation with therapeutic heparin activity range of 0.3 -0.7 Units/mL. Current interpretive data was last revised on 2011. Blood specimen (specimen) 01/03/2019 4:27 PM DRAMATIC ARTS HISTORIAN 01/03/2019 4:42 PM DRAMATIC ARTS HISTORIAN Narrative [facility] - 01/03/2019 5:11 PM DRAMATIC ARTS HISTORIAN Anita Gillespie MD LAB BLOOD ORDERABLES Final Result Performing Organization Address [facility] de Phone Number [facility] [employer] [place] [address] * Protime-INR (01/03/2019 4:27 PM DRAMATIC ARTS HISTORIAN) PT 12.9 8.5 - 13.0 sec [facility] INR 1.20 0.80 - 1.21 [facility] Comment: Interpretive Data Inpatient therapeutic ranges* Atrial fibrillation ?2.0-3.0 INR Venous thrombo-embolism ?2.0-3.0 INR Bioprosthetic heart valve ?* Mechanical heart valve, bileaflet or tilting disk,aortic position ? 2.0-3.0 INR All other,or bileaflet or tilting disk, in mitral position ? 2.5-3.5 INR *See the pharmacy resource directory (PHRED) for an updated copy of the Tool Book at [email or web address] Current Interpretive Data was last revised 2012. Blood specimen (specimen) 01/03/2019 4:27 PM DRAMATIC ARTS HISTORIAN 01/03/2019 4:42 PM DRAMATIC ARTS HISTORIAN Narrative [facility] - 01/03/2019 5:11 PM DRAMATIC ARTS HISTORIAN us Anita Gillespie MD LAB BLOOD ORDERABLES Final Result Performing Organization Address City/[facility] Co de Phone Number [facility] Department [place] [address] * Magnesium (01/03/2019 4:27 PM DRAMATIC ARTS HISTORIAN) Magnesium 1.6 1.4 - 2.5 mg/dL [facility] Blood specimen (specimen) 01/03/2019 4:27 PM DRAMATIC ARTS HISTORIAN 01/03/2019 4:49 PM DRAMATIC ARTS HISTORIAN Narrative [facility] - 01/03/2019 5:17 PM DRAMATIC ARTS HISTORIAN us Anita Gillespie MD LAB BLOOD ORDERABLES Final Result Performing Organization Address [facility] Co de Phone Number [facility] Department [place] [address] * (ABNORMAL) Comprehensive metabolic panel (01/03/2019 4:27 PM DRAMATIC ARTS HISTORIAN) Sodium 135 135 - 145 mmol/L [facility] Potassium, pl 3.8 3.3 - 4.9 mmol/L [facility] Chloride 101 97 - 110 mmol/L [facility] CO2 23 22 - 32 mmol/L [facility] Anion gap 11 2 - 15 mmol/L [facility] BUN 10 8 - 25 mg/dL [facility] Creatinine 0.73(L) 0.80 - 1.30 mg/dL [facility] Glucose 108 70 - 199 mg/dL [facility] Comment: Interpretive Data Fasting glucose >/= [...] 2017. Calcium 8.6 8.5 - 10.3 mg/dL [facility] Bilirubin, total 0.8 0.1 - 1.2 mg/dL [facility] Protein, pl 5.9(L) 6.5 - 8.5 g/dL [facility] Albumin 3.6 3.5 - 5.0 g/dL [facility] Alk phos 334(H) 40 - 130 Units/L [facility] ALT 59(H) 7 - 55 Units/L [facility] AST 31 10 - 50 Units/L [facility] Blood specimen (specimen) 01/03/2019 4:27 PM DRAMATIC ARTS HISTORIAN 01/03/2019 4:49 PM DRAMATIC ARTS HISTORIAN Narrative [facility] - 01/03/2019 5:37 PM DRAMATIC ARTS HISTORIAN us Anita Gillespie MD LAB BLOOD ORDERABLES Final Result [facility] Department [place] [address] documented in this encounter Visit Diagnoses Diagnosis 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 Given 01/05/2019 8:57 PM DRAMATIC ARTS HISTORIAN 600 mg Given 01/05/2019 10:45 AM DRAMATIC ARTS HISTORIAN 600 mg Given 01/04/2019 8:48 PM DRAMATIC ARTS HISTORIAN 600 mg levoFLOXacin (LEVAQUIN) tablet 750 mg 750 mg, oral, Daily (early AM), First dose on Wed01/05/19 at 1215, For 5 doses, Give 2 hrs before or 2 hrs after MVI, antacids, or other products containing sucralfate, magnesium, aluminum, iron, or zinc. May be taken without regard to meals., Indications: Pneumonia, Community AcquiredIndications:Pneumonia, Community Acquired Given 01/06/2019 6:20 AM DRAMATIC ARTS HISTORIAN 750 mg Given 01/05/2019 4:36 PM DRAMATIC ARTS HISTORIAN 750 mg lidocaine-EPINEPHrine (XYLOCAINE with EPI) 1 %-1:100,000 injection As needed, Starting on Wed01/06/19 at 0813, Intra-Op, Indications: Administration of Local AnesthesiaIndications:Administratio n of Local Anesthesia Given 01/06/2019 8:13 AM DRAMATIC ARTS HISTORIAN 6 mL Surgical Site morphine injection 2 mg 2 mg, intravenous, Administer over 4 Minutes, Every 4 hours PRN, breakthrough pain, Starting on Wed01/06/19 at 1601, For 3 doses ondansetron ODT (ZOFRAN-ODT) disintegrating tablet 4 mg 4 mg, sublingual, 4 times daily PRN, nausea, vomiting, Starting on Wed01/06/19 at 1601 oxyCODONE (ROXICODONE) tablet 5 mg 5 mg, oral, 4 times daily PRN, 2nd line for pain, Starting on Wed01/05/19 at 0853, Indications: PainIndications:Pain Given 01/06/2019 4:15 PM DRAMATIC ARTS HISTORIAN 5 mg Given 01/05/2019 8:58 PM DRAMATIC ARTS HISTORIAN 5 mg polyvinyl alcohol-povidone (REFRESH CLASSIC) 1.4-0.6 % ophthalmic solution 1 drop 1 drop, each eye, 3 times daily PRN, dry eyes, Starting on Wed01/03/19 at 1842 Given 01/03/2019 8:06 PM DRAMATIC ARTS HISTORIAN 1 drop sodium chloride 0.9 % irrigation As needed, Starting on Wed01/06/19 at 0701, Intra-Op Given 01/06/2019 7:01 AM DRAMATIC ARTS HISTORIAN 1,[address] sodium chloride 0.9% flush 0.5-20 mL 0.5-20 mL, intra-catheter, Every 8 hours scheduled, First dose on Wed01/03/19 at 1530, Flush volume based on line type and size. Given 01/06/2019 6:21 AM DRAMATIC ARTS HISTORIAN 10 mL Given 01/05/2019 8:59 PM DRAMATIC ARTS HISTORIAN 10 mL Given 01/05/2019 6:31 AM DRAMATIC ARTS HISTORIAN 10 mL sodium chloride 0.9% flush 0.5-20 mL 0.5-20 mL, intra-catheter, As needed, line care, Starting on Wed01/03/19 at 1455, Flush volume based on line type and size. Flush before and after each use. tacrolimus (PROGRAF) capsule 0.5 mg 0.5 mg, oral, 2 times daily, First dose on Wed01/03/19 at 2100, Avoid grapefruit juice Given 01/05/2019 8:57 PM DRAMATIC ARTS HISTORIAN 0 .5 mg Given 01/05/2019 10:35 AM DRAMATIC ARTS HISTORIAN 0.5 mg Given 01/04/2019 8:48 PM DRAMATIC ARTS HISTORIAN 0.5 mg valGANciclovir (VALCYTE) tablet 450 mg 450 mg, oral, 2 times daily, First dose on Wed01/03/19 at 2100, Indications: CMV VIremiaIndications:CMV VIremia Given 01/05/2019 8:58 PM DRAMATIC ARTS HISTORIAN 450 mg Given 01/05/2019 10:35 AM DRAMATIC ARTS HISTORIAN 450 mg Given 01/04/2019 8:48 PM DRAMATIC ARTS HISTORIAN 450 mg documented in this encounter Discontinued Medications [...] Recently Administered Medications Times are shown in DRAMATIC ARTS HISTORIAN. Scheduled Medication Order 01/04/2019 01/05/2019 01/06/2019 cefepime (MAXIPIME) 1000 mg/10 mL in sterile water (premix) 1,000 mg (CANCELED) 1,000 mg, intravenous, at 20 mL/hr, Administer over 30 Minutes, Every 8 hours, First dose on Wed01/03/19 at 1530, Indications: Pneumonia, Community Acquired 0835 (New Bag - Provider: Erica Gifford RN)0905 (Stopped - Provider: Erica Gifford RN)1626 (Stopped - Provider: Kristine Malave RN - Comment: IV went bad)1627 (Stopped - Provider: Kristine Malave, SHAILESH)1708 (New Bag - Provider: Kristine Malave, SHAILESH)1738 (Stopped - Provider: Kristine Malave, SHAILESH) 0012 (New Bag - Provider: Niurka Hanson, SHAILESH)0045 (Stopped - Provider: Niurka Hanson RN)1035 (New Bag - Provider: Simin Crespo, SHAILESH)1056 (Stopped - Provider: Simin Crespo, SHAILESH) guaiFENesin ER (MUCINEX) extended release tablet 600 mg 600 mg, oral, 2 times daily, First dose on Wed01/03/19 at 2100, Do not crush, chew, cut, dissolve, open or otherwise manipulate tablet/capsule. 0827 (Given - Provider: Erica Gifford, SHAILESH)2047 (Given - Provider: Niurka Hanson, SHAILESH) 1045 (Given - Provider: Simin Crespo, SHAILESH)2056 (Given - Provider: Niurka Hanson, SHAILESH) 0639 (DEC Hold - Provider: Automatic Transfer Provider - Reason: Patient not available)0900 (Dose Auto Held - Provider: Automatic Transfer Provider)1303 (DEC Unhold - Provider: Automatic Transfer Provider) heparin 100 unit/mL injection 500 Units (COMPLETED) 500 Units (5 mL), IV flush, Once, On Wed01/04/19 at 1000, For 1 dose, Indications: at bedside for bone marrow biopsy 1130 (Given - Provider: Yasmin Alonso RN) HYDROmorphone (DILAUDID) injection 1 mg (COMPLETED) 1 mg, intravenous, Administer over 2 Minutes, Once, On Wed01/04/19 at 1000, For 1 dose, 30 minutes prior to bone marrow biopsy, RETAIL PROPERTY MANAGER will call you and tell when to give this 1027 (Given - Provider: Yasmin Alonso RN) HYDROmorphone (DILAUDID) injection 1 mg (COMPLETED) 1 mg, intravenous, Administer over 2 Minutes, Once, On Wed01/04/19 at 1345, For 1 dose 1130 (Given - Provider: Yasmin Alonso, SHAILESH) levoFLOXacin (LEVAQUIN) tablet 750 mg 750 mg, [...] 0620 (Given - Provider: Niurka Hanson, SHAILESH)0639 (MAR Hold - Provider: Automatic Transfer Provider - Reason: Patient not available)1303 (MAR Unhold - Provider: Automatic Transfer Provider) lidocaine [...] 30 minutes prior to bone marrow biopsy, RETAIL PROPERTY MANAGER will call you and tell when to give this For IV administration, do not exceed a rate of 2 mg/minute 1028 (Given - Provider: Yasmin Alonso RN) morphine injection 1 mg (COMPLETED) 1 mg, intravenous, Administer over 4 Minutes, Once, On Wed01/04/19 at 2230, For 1 dose 221 (Given - Provider: Niurka Hanson RN) morphine injection 1 mg (COMPLETED) 1 mg, intravenous, Administer over 4 Minutes, Once, On Wed01/05/19 at 0615, For 1 dose 0559 (Given - Provider: Niurka Hanson RN) oxyCODONE (ROXICODONE) tablet 5 mg (COMPLETED) 5 mg, oral, Once, On Wed01/04/19 at 2100, For 1 dose, Indications: Pain 2047 (Given - Provider: Niurka Hanson RN) sodium [...] - Provider: Vero Elliott RN - Reason: Other)205 (Given - Provider: Niurka Hanson RN) 0621 (Given - Provider: Niurka Hanson RN)0639 (DEC Hold - Provider: Automatic Transfer Provider - Reason: Patient not available)1303 (DEC Unhold - Provider: Automatic Transfer Provider)1400 (Due - Provider: Automatic Transfer Provider) tacrolimus (PROGRAF) capsule 0.5 mg 0.5 mg, oral, 2 times daily, First dose on Wed01/03/19 at 2100, Avoid grapefruit juice 0827 (Given - Provider: Erica Gifford RN)2047 (Given - Provider: Niurka Hanson RN) 1035 (Given - Provider: Simin Crespo, SHAILESH)205 (Given - Provider: Niurka Hanson RN) 0639 (DEC Hold - Provider: Automatic Transfer Provider - Reason: Patient not available)0900 (Dose Auto Held - Provider: Automatic Transfer Provider)1303 (DEC Unhold - Provider: Automatic Transfer Provider) valGANciclovir (VALCYTE) tablet 450 mg 450 mg, oral, 2 times daily, First dose on Wed01/03/19 at 2100, Indications: CMV VIremia 0827 (Given - Provider: Erica Gifford RN)2047 (Given - Provider: Niurka Hanson RN) 1035 (Given - Provider: Simin Crespo, SHAILESH)2057 (Given - Provider: Niurka Hanson RN) 0639 (DEC Hold - Provider: Automatic [...] RN) 0502 (New Bag - Provider: Niurka Ginna Terryberry, RN)0627 (Stopped - Provider: Niurka Hanson RN) Continuous Medication Order 01/04/2019 01/05/2019 01/06/2019 Lactated Ringer's (LR) infusion 125 mL/hr, intravenous, Continuous, Starting on Wed01/06/19 at 1045, Phase I 1045 (Due) PRN Medication Order 01/04/2019 01/05/2019 01/06/2019 acetaminophen (TYLENOL) tablet 650 mg (CANCELED) 650 mg, oral, Every 6 hours PRN, 1st line for pain, fever, fever greater than 38.3 C, Starting on 01/03/19 at 1456, Indications: Fever, Pain 0835 (Given - Provider: Erica Gifford RN) acetaminophen (TYLENOL) tablet 650 mg 650 mg, oral, Every 8 hours PRN, 1st line for pain, Starting on Brenda 01/05/19 at 0854 1603 (Not Given - Provider: Vero Elliott RN - Reason: Other - Comment: Not given by RN prior to my shift beginning at 1500.) 0639 (MAR Hold - Provider: Automatic Transfer Provider - Reason: Patient not available)1303 (MAR Unhold - Provider: Automatic Transfer Provider) fentaNYL [...] at 1537 1702 (Given - Provider: Kristine Malave, SHAILESH) 0639 (DEC Hold - Provider: Automatic Transfer [...] pain, Starting on Wed01/05/19 at 0853, Indications: Pain 1604 (Not Given - Provider: Vero Elliott RN - Reason: Other - Comment: Not given by RN prior to my shift beginning at 1500.)2057 (Given - Provider: Niurka Hanson RN) 0639 (DEC Hold - Provider: Automatic Transfer Provider - Reason: Patient not available)1303 (DEC Unhold - Provider: Automatic Transfer Provider)1615 (Given - Provider: Simin Crespo, SHAILESH) polyvinyl alcohol-povidone (REFRESH CLASSIC) 1.4-0.6 % ophthalmic solution 1 drop 1 drop, each eye, 3 times daily PRN, dry eyes, Starting on Wed01/03/19 at 1842 0639 (DEC Hold - Provider: Automatic Transfer Provider - Reason: Patient not available)1303 (DEC Unhold - Provider: Automatic Transfer Provider) sodium chloride 0.9 % irrigation (CANCELED) As needed, Starting on Wed01/06/19 at 0701, Intra-Op 0701 (Given - Provider: Bebe Valdes MD) sodium chloride 0.9% flush 0.5-20 mL 0.5-20 mL, intra-catheter, As needed, line care, Starting on Wed01/03/19 at 1455, Flush volume based on line type and size. Flush before and after each use. 0639 (DEC Hold - Provider: Automatic Transfer Provider - Reason: Patient not available)1303 (DEC Unhold - Provider: Automatic Transfer Provider) No Frequency Medication Order 01/04/2019 01/05/2019 01/06/2019 morphine 2 mg/mL injection - ADS Override Pull (COMPLETED) Starting on Wed01/06/19 at 1309, For 1 dose, JARAD CRESPO: cabinet override 1311 (Given - Provid er: Simin Cerspo RN) sodium chloride 0.9% 0.9% infusion - ADS Override Pull (COMPLETED) Starting on Wed01/04/19 at 1621, For 1 dose, Created by cabinet override 1630 (New Bag - Provider: Kristine Malave RN)1709 (Stopped - Provider: Kristine Malave RN)1826 (Stopped - Provider: Kristine Malave, SHAILESH) sodium chloride 0.9% 0.9% infusion - ADS Override Pull (COMPLETED) Starting on Wed01/04/19 at 1700, For 1 dose, Created by cabinet override 1702 (New Bag - Provider: Kristine Malave RN) documented in this encounter Orders Medications Ordered That John ht Not Have Been Administered Count Last Ordered Date First Ordered Date acetaminophen (TYLENOL) tablet 1,000 mg 1 0 01/06/2019 fentaNYL (SUBLIMAZE) preserv ative free injection 50 mcg 1 01/06/2019 Lactated Ringer's (LR) infusion 1 9 metoclopramide (REGLAN) injection 10 mg 1 0 01/06/2019 morphine 2 mg/mL injection - ADS Override Pull 1 01/06/2019 morphine injection 2 mg 4 01/06/2019 naloxone (NARCAN) 0.4 mg/mL injection 0.04-0.4 mg 1 01/06/2019 ondansetron (ZOFRAN) injection 4 mg 2 01/0601/04/2019 ondansetron ODT (ZOFRAN-ODT) disintegrating tablet 4 mg 1 01/06/2019 acetaminophen (TYLENOL) tablet 500 mg 1 05/2019 acetaminophen (TYLENOL) tablet 650 mg 3 05/201901/03/2019 levoFLOXacin (LEVAQUIN) tablet 750 mg 1 05/2019 morphine injection 1 mg 2 01/05/2019 03/0 04/2019 oxyCODONE (ROXICODONE) tablet 5 mg 3 201801/04/2019 heparin 100 unit/mL injection 500 Units 1 0 01/04/2019 HYDROmorphone (DILAUDID) injection 1 mg 2 0 01/04/2019 lidocaine (XYLOCAINE) 20 mg/ mL (2 %) injection 15 mL 1 01/04/2019 LORazepam (ATIVAN) injection 1 mg 1 019 sodium chloride 0.9% 0.9% in fusion - ADS Override Pull 2 01/04/2019 cefepime (MAXIPIME) 1000 mg/ 10 mL in sterile water (premix) 1,000 mg 1 01/03/2019 enoxaparin (LOVENOX) syringe 40 mg 1 2018 guaiFENesin ER (MUCINEX) ext ended release tablet 600 mg 1 01/03/2019 Lactated Ringer's (LR) bolus 1,000 mL 1 03/2019 polyvinyl alcohol-povidone ( REFRESH CLASSIC) 1.4-0.6 % ophthalmic solution 1 drop 1 01/03/2019 sodium chloride 0.9% flush 0.5-20 mL 2 03/2019 sodium chloride 7 % nebulize r solution - ADS Override Pull 1 01/03/2019 tacrolimus (PROGRAF) capsule 0.5 mg 1 01/03 valGANciclovir (VALCYTE) tablet 450 mg 1 vancomycin 1000 mg/200 mL in dextrose 5% (premix) 1,000 mg 1 01/03/2019 EKG Orders Without Results Count [...] 01/03/2019 documented in this encounter Care Teams Taxicab Starter Relationship Specialty Start Date End Date Kali Cruz MD [address] [place] [address] PCP - General 04/09/17 03/21/19 Munira Rick, RN [address] [address] Icer Machine 04/01/18 documented as of this encounter
--- OUTSIDE RECORDS SUMMARY | 2024-10-28 06:26 | XMS_ITS | Encounter Summary ---
Author Organization [facility] Address [address] [place] [address] Phone Care Team Providers Care Crisis Mental Health Therapist Name Role Phone Kali Cruz MD Primary Care Provider [phone] Munira Rick RN Unavailable [phone] Encounter Details Date Type Department Care Team (Late st Contact Info) Description 01/09/2019 Telephone [facility] Oncology [address] 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 Patient took his last dose today. Will update me if new symptoms arise. Received all discharge medications: yes Issues with discharge planning: no Reviewed next appointment: no Did you schedule as Transitional Care Visit? no Is the patient on a research study with a research oral medication? no Brooklynn states that Beka was having trouble swallowing on Wednesday. She called Dr. Valdes's RN who advised patient to try applying ice to his surgical site to reduce swelling and soreness. She statesthis allowed him to take his pills and eat soft foods that evening. She states he has since then been able to eat/drink like normal. Brooklynn has been helping him with his TATI drain and reports having 20mL removed on Wednesday and only 5mL on Wednesday. They are unsure when this drain will be removed, as their follow-up appointment has not yet been made. I will reach out to his RN to coordinate this. eBka still has a slight cough every once in a while that produces thick white sputum . I advised Brooklynn to have Beka increase is fluid intake to thin these secretions. She denies him having any fevers or colored drainage since being on the antibiotics. She knows to call in the interim with any questions or concerns. documented in this encounter Plan of Treatment Scheduled Procedures Name Priority Associated Diagnoses Date/Ti pa COLONOSCOPY Encounter for screening for colorectal cancer in high risk patient Family history of rectal cancer documented as of this encounter Visit Diagnoses Not on filedocumented in this encounter Care Teams Crisis Mental Health Therapist Relationship Specialty Start Date End Date Kali Cruz MD [address] [place] [address] PCP - General 04/09/17 03/21/19 Munira Rick, RN [address] [facility] [address] [place] [address] Uptwister Tender 04/01/18 documented as of this encounter
--- OUTSIDE RECORDS SUMMARY | 2024-10-28 06:26 | XMS_ITS | Encounter Summary ---
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 Gender Identity Not on file Sexual Orientation Straight 08/22/2021 9: 23 AM CDT documented as of this encounter Plan of Treatment Scheduled Procedures Name Priority Associated Diagnoses Date/Ti me COLONOSCOPY Encounter for screening for colorectal cancer in high risk patient Family history of rectal cancer documented as of this encounter Visit Diagnoses Not on filedocumented in this encounter Care Teams Stock And Station Agent Relationship Specialty Start Date End Date Kali Cruz MD [address] [place] [address] PCP - General 04/09/17 03/21/19 Munira Rick, RN [address] [facility] [address] [place] [address] Digital Media Director 04/01/18 documented as of this encounter
--- OUTSIDE RECORDS SUMMARY | 2024-10-28 06:26 | XMS_ITS | Encounter Summary ---
Author Organization [facility] Address [address] [place] [address] Care Team Providers Care Rad Technologist Name Role Phone Kali Cruz MD Primary Care Provider [phone] Munira Rick RN Unavailable Encounter Details Date Type Department Care Team (Late st Contact Info) Description 11/28/2018 Telephone [facility] Transplant Liver [address] [facility] [id number] [place] [address] Sharita Valdez Social History Tobacco Use Types Packs/Day Years Used Date Smoking Tobacco: Never Smokeless Tobacco: Never Sex and Gender Information Value Date Recorded Sex Assigned at Not on file Legal Sex Male 6:28 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 D INCOME TRADING VICE PRESIDENT documented in this encounter Plan of Treatment Scheduled Procedures Name Priority Associated Diagnoses Date/Ti me COLONOSCOPY Encounter for screening for colorectal cancer in high risk patient Family history of rectal cancer documented as of this encounter Visit Diagnoses Not on filedocumented in this encounter Care Teams Rad Technologist Relationship Specialty Start Date End Date Kali Cruz MD [address] [facility] [address] [facility] [address] [place] [address] PCP - General 04/09/17 03/21/19 Munira Rick, RN [address] [address] Extrusion Press Supervisor 04/01/18 documented as of this encounter
--- OUTSIDE RECORDS SUMMARY | 2024-10-28 06:26 | XMS_ITS | Encounter Summary ---
Author Organization [facility] Address [address] [place] [address] Phone Care Team Providers Care Floor Scraper Name Role Phone Kali Cruz MD Primary Care Provider [phone] Munira Rick RN Unavailable [phone] Reason for Visit * Consultation (Routine) - Closed Specialty Diagnoses / Procedures Referred By Sascha rey Referred To Contact Otolaryngology Diagnoses High grade B-cell lymphoma (HCC) Stan Valdes MD Phone: tel: fax: Stan Valdes MD [address] [place] [address] Phone: tel: fax: Referral ID Status Reason Start Date Expiration Date V isits Requested Visits Authorized [id number] Closed Specialty Services Required 12/28/2018 07/08/2020 1 1 Encounter Details Date Type Department Care Team (Late st Contact Info) Description 01/03/2019 2:30 PM FOOT AND ANKLE SURGEON Office Visit [facility] ([facility] - [facility] ENT [address] [facility] 11th [place] [address] [place] [id number] Stan Valdes MD [address] [place] [address] High grade B-cell lymphoma (CMS/HCC) Social History Tobacco Use Types Packs/Day Years Used Date Smoking Tobacco: Never Smokeless Tobacco: Never Sex and Gender Information Value Date Recorded Sex Assigned at Not on file Legal Sex Male 6:28 AM FOOT AND ANKLE SURGEON Gender Identity Not on file Sexual Orientation Straight 08/22/2021 9: 23 AM CDT documented as of this encounter Progress Notes * Stan Valdes MD - 01/03/2019 2:30 PM CST [facility] Department of Otolaryngology - Head & Neck Surgery 01/03/2019 Name: Beka Nichols Date of : 1995 No chief complaint on file. Problem List Hematologic High grade B-cell lymphoma (CMS/HCC) HISTORY: reason unfortunately in gentleman with history of lymphoma. On recent imaging and history he has noted some increased swelling over his neck. Dr. Gillespie has kindly asked me to assist with the new excisional lymph node biopsy. PHYSICAL EXAM: There were no vitals filed for this visit. General: Well-developed, well-nourished in no apparent distress. [...] The salivary gland examination is normal bilaterally. There is a scattered lymphadenopathy throughout the neck. These are mainly centered in the left level 2A,2B and in 5 A. There is also lymphadenopathy in the right level 1 B 2A and low level 1A 1B junction Endocrine: No palpable abnormalities of the thyroid gland. Cardiovascular: Extremities are warm and well perfused. Pulmonary: Normal quiet breathing. No respiratory distress, stridor, or wheeze. DATA REVIEWED: Radiology Reports: EXAMINATION: TUMOR FDG-PET/CT IMAGING ?? DATE OF STUDY: 01/03/2019 ?? SCANNER: mCT ?? RADIOPHARMACEUTICAL: 13.3 mCi F-18 Fluorodeoxyglucose (FDG) i.v. Injection site: Left antecubital ?? 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 Recently with slowly progressive cervical lymphadenopathy. The study is requested for follow-up. ?? Subsequent treatment strategy. ?? TECHNIQUE: The [...] obtained. The study was interpreted on the [employer] workstation. The mean liver SUV (reported for chief vendor quality purposes) is 1.7. ?? The total scanned area was skull base to the proximal thighs. Images of the body were obtained starting 59 minutes after injection of tracer. ?? COMPARISON: Prior FDG-PET/CT dated 01/05/2018. ?? FINDINGS: ?? New hypermetabolic activity associated with diffuse extensive mucosal thickening in right frontal, bilateral ethmoid and maxillary sinuses. ? Interval increase in number of hypermetabolic lymph [...] and lingual tonsils, which may be reactive. ?? There is intense hypermetabolic activity associated with new pulmonary consolidations located in the anterior segment left upper lobe, lateral basal segment right lower lobe with some associated peribronchovascular groundglass opacities in the left anterior cardiophrenic recess. There is mild uptake in patchy consolidation in the superior segment of the left lower lobe. ?? There is moderate diffusely increased activity throughout the proximal appendicular and axial skeleton. ?? The most FDG-avid lesion is right cervical level IB (submandibular), has a maximum SUV of 15.3, and approximate axial dimensions of 18 mm. The uptake in this lesion is: markedly greater than liver (5PS= 5). ?? Additional CT findings: ?? Interval removal of a right internal jugular central venous port catheter. Changes of right upper neck dissection. Partially calcified right hilar lymph node. New small left pleural effusion. Changes of liver transplant with diaphragmatic reconstruction. Changes of splenectomy. Transitional lumbosacral anatomy, with sacralization of L5 and degenerative changes at this level. ?? IMPRESSION: ?? 1. Multiple new hypermetabolic and slightly enlarging lymph nodes above and below the diaphragm (bilateral cervical, axillary, mediastinal, mesenteric, retroperitoneal, and left inguinal), consistent with progression of disease. 5PS = 5. ?? 2. New right lower lobe and left upper lobe lung consolidations. Given that this is new since 12/28/2018, findings most likely represent pneumonia rather than pulmonary PTLD, however clinical correlation is recommended and attention on short interval chest CT follow-up imaging. ?? 3. Findings of pansinusitis, similar to February neck CT. ?? 4. Diffusely increased activity throughout bone medullary cavities the axial and proximal appendicular skeleton, which may represent marrow involvement versus marrow hyperplasia. Recommend correlation with marrow biopsy. ASSESSMENT/PLAN: Gentleman with history of lymphoma now new concerning lymph nodes. We discussed surgical excision for diagnostic purposes. He is eager to proceed AND ANKLE SURGEON documented in this encounter Plan of Treatment Scheduled Procedures Name Priority Associated Diagnoses Date/Ti me COLONOSCOPY Encounter for screening for colorectal cancer in high risk patient Family history of rectal cancer documented as of this encounter Visit Diagnoses Diagnosis High grade B-cell lymphoma (HCC) documented in this encounter Orders Outpatient Referral Count Last Ordered Date Fir st Ordered Date AMB REFERRAL TO ENT 1 01/03/2019 documented in this encounter Care Teams Floor Scraper Relationship Specialty Start Date End Date Kali Cruz MD [address] [place] [address] PCP - General 04/09/17 03/21/19 Munira Rick, RN [address] [facility] [address] [place] [address] Network Control Operators Supervisor 04/01/18 documented as of this encounter
--- OUTSIDE RECORDS SUMMARY | 2024-10-28 06:26 | XMS_ITS | Encounter Summary ---
Author Organization [facility] Address [address] [place] [address] Phone Care Team Providers Care Blast Furnace Auxiliaries Supervisor Name Role Phone Kali Cruz MD Primary Care Provider [phone] Munira Rick RN Unavailable [phone] Reason for Visit * Oncology (Routine) - Closed Specialty Diagnoses / Procedures Referred By Contac t Referred To Contact Oncology Diagnoses 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) CT,LAB,ROV Procedures ONCBCN CLINIC APPOINTMENT REQUEST RETURN Anita Gillespie MD [address] [facility] [address] [place] [address] Phone: tel: fax: [facility] Oncology [address] [facility] 7th [place] [address] [place] [address] Phone: tel: fax: Referral ID Status Reason Start Date Expiration Date Visits Re quested Visits Authorized [id number] Closed 12/28/2018 10/31/2019 99 99 Encounter Details Date Type Department Care Team (Latest Contact Info) Description 12/28/2018 10:00 AM REPRODUCTIVE HEALTHCARE ASSISTANT Office Visit [facility] Oncology [facility] 7th [place] [address] [place] [address] 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); High grade B-cell lymphoma (CMS/HCC) Social History Tobacco Use Types Packs/Day Years Used Date Smoking Tobacco: Never Smokeless Tobacco: Never Sex and Gender Information Value Date Recorded Sex Assigned at Not on file Legal Sex Male 6:28 AM REPRODUCTIVE HEALTHCARE ASSISTANT Gender Identity Not on file Sexual Orientation Straight 08/22/2021 9: 23 AM CDT documented as of this encounter Last Filed Vital Signs Vital Sign Reading Time Taken Comments Blood Pressure 109/70 12/28/2018 9:05 AM REPRODUCTIVE HEALTHCARE ASSISTANT Pulse 69 12/28/2018 9:05 AM REPRODUCTIVE HEALTHCARE ASSISTANT Temperature 36.8 ??C (98.2 ??F) 12/28/2018 9:05 AM CS T Respiratory Rate 18 12/28/2018 9:05 AM REPRODUCTIVE HEALTHCARE ASSISTANT Oxygen Saturation 97% 12/28/2018 9:05 AM REPRODUCTIVE HEALTHCARE ASSISTANT Inhaled Oxygen Concentration - - Weight 58.8 kg (129 lb 9.6 oz) 12/28/2018 9:05 A M REPRODUCTIVE HEALTHCARE ASSISTANT Height - - Body Mass Index 19.71 12/05/2018 7:44 PM REPRODUCTIVE HEALTHCARE ASSISTANT documented in this encounter Progress Notes * Dick Blackburn MD - 12/28/2018 12:00 AM CST PATIENT NAME: ADI NICHOLS : 1995 JUSTEN: 12/28/2018 DIAGNOSES: 1. 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 2. 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 3. Bilateral pulmonary embolism diagnosed on 10/19/2017. TREATMENT AND DISEASE COURSE: 1. R-CHOP x 1, 08/25/2017. 2. Dose adjusted EPOCH-R x 5, 09/15/2017 - 12/2017. Post-C2 PET: CA (5PS = 4), CR post C5 3. IT chemotherapy (MTX), only with cycle 3 on 10/06/2017, complicated by intracranial hypotension. INTERVAL HISTORY: Mr. Nichols is a very pleasant 23-year-old gentleman who comes for scheduled return office visit in follow-up for his C-Myc positive PTLD. He was last seen on 09/28/2018. Since that time, he has had persistent URI symptoms. At our last visit he explained that he periodically suffers from these URIs and has for years. Associated with these symptoms, he regularly feels that his cervical lymph nodes wax and wane in size. Unfortunately, his cervical lymph nodes have been steadily increasing in size since we last saw him. His cough is normally productive of white sputum, but occasionally of brown. 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 He has not had any pain, dysphagia, or shortness of breath. He has no peripheral neuropathy, constipation, diarrhea, nausea, vomiting, or falls. PHYSICAL EXAM: General: Pleasant, conversant, well groomed, no apparent distress. Performance Status: 0. Vital Signs: Temperature 36.8 Celsius, heart rate 69, blood pressure 110/70, respiratory rate 18, oxygen saturation 97%. Weight 58.8 kg. Lungs: Clear to auscultation bilaterally with good air movement. Nodes: He has a number of enlarged lymph nodes. Left jugular digastric measuring 2 x 1.5 cm. There are 3 posterior cervical lymph nodes in the chain on the left side, each measuring about 1 cm. He has a right submandibular lymph node measuring 2 cm in diameter and another overlying the right side of the trachea measuring 2 cm. He has a level 2 cervical lymph node measuring 2 x 1.5 cm. He has a right posterior cervical lymph node measuring 2 x 2 cm. There is no axillary or inguinal lymphadenopathy. HEENT: Sclerae anicteric. Right conjunctiva is injected. Posterior oropharynx slightly erythematouswithout enlarged tonsils. Abdomen: Normoactive bowel sounds. Soft, nontender, and nondistended. No hepatosplenomegaly. Extremities: No edema, clubbing, or cyanosis. Cardiovascular: Regular rate and rhythm. No murmurs, rubs, or gallops. Neurologic: Alert and times alert and oriented x4. Strength and sensation intact. Gait normal. LABORATORY DATA: White blood cell count 12.6, hemoglobin 15.2, platelets 406. Chemistries largely within normal limits with a slightly elevated alkaline phosphatase of 304. LDH 193. IMAGING DATA: CT scans of the chest, neck, abdomen and pelvis on 12/28/2018: Images and reports personally reviewed. They reveal new diffuse cervical and supraclavicular lymphadenopathy and severe worsened chronicsinusitis without evidence of extra sinus disease. There is no evidence of recurrent disease in [facility], abdomen, or pelvis. ASSESSMENT AND PLAN: In summary, Mr. Nichols is a very pleasant 23-year-old gentleman here for follow- up of his posttransplant lymphoproliferative disorder. 1. C-Myc positive PTLD, EBV positive, stage EMY, IPI 3 (stage, LDH, extranodal sites). This 23-year-old gentleman is now 12 months status post 1 cycle of R- CHOP and 5 cycles of dose adjusted EPOCH-4 with 3 doses of intrathecal methotrexate INDUCTION MACHINE OPERATOR prophylaxis. His enlarging cervical lymph nodes are very concerning for recurrent lymphoma. On the other hand, some of these lymph nodes were palpable at the last visit and they have only mildly enlarged in size. We would expect this type of progression from an indolent lymphoma, but certainly not his C-Myc positive PTLD, which was very aggressive at the time of first presentation. Regardless, we will move forward with the biopsy and refer him back toDr. Valdes with ENT for consideration of an excisional biopsy. We will schedule follow-up depending on the results of this biopsy. 2. History of liver transplant. The patient remains on tacrolimus 0.5 mg b.i.d. He had a recent biopsy of the liver, which did not show dramatic change. 3. History of pulmonary embolus. This was an incidental finding in October 2017. He completed a 6 month course of Eliquis on 04/19/2018. ELECTRONICALLY SIGNED - 12/30/2018 02:21 PM Dick Blackburn M.D. Fellow I have seen and examined the patient and agree with the findings and plan of care as documented by and/or discussed with Dick Blackburn M.D.. ELECTRONICALLY SIGNED - 12/31/2018 03:38 PM Anita Gillespie M.D. Jason Perez of Medicine /SREEDHAR/mc ODUCTIVE HEALTHCARE ASSISTANT documented in this encounter Plan of [...] 019 documented in this encounter Care Teams Blast Furnace Auxiliaries Supervisor Relationship Specialty Start Date End Date Kali Cruz MD [address] [place] [address] PCP - General 04/09/17 03/21/19 Munira Rick, RN [address] [facility] [address] [place] [id number] Internet Systems Administrator 04/01/18 documented as of this encounter
--- OUTSIDE RECORDS SUMMARY | 2024-10-28 06:26 | XMS_ITS | Encounter Summary ---
Author Organization [facility] Address [address] [place] [address] Care Team Providers Care Ski Base Trimmer Name Role Phone Kali Cruz MD Primary Care Provider [phone] Munira Rick RN Unavailable [phone] Reason for Referral * Diagnostic Imaging (Routine) - Closed Specialty Diagnoses / Procedures Referred By Contac t Referred To Contact Diagnoses Liver replaced by transplant (HCC) Procedures US Abdomen Complete W Liver Duplex Theodore Gresham MD Phone: tel: fax: [address] [address] Referral ID Status Reason Start Date Expiration Date Visits Re quested Visits Authorized [id number] Closed 10/13/2018 04/23/2020 1 1 BOTTOMER Encounter Details Date Type Department Care Team (Late st Contact Info) Description 10/13/2018 Orders Only [facility] Transplant Liver [address] [facility] [phone] [place] [address] Munira Rick, RN [address] [facility] [address] [place] [address] Liver replaced by transplant (CMS/HCC) (Primary Dx) Social History Tobacco Use Types Packs/Day Years Used Date Smoking Tobacco: Never Smokeless Tobacco: Never Sex and Gender Information Value Date Recorded Sex Assigned at Not on file Legal Sex Male 6:28 AM PIE BOTTOMER Gender Identity Not on file Sexual Orientation Straight 08/22/2021 9: 23 AM CDT documented as of this encounter Plan of Treatment Scheduled Procedures Name Priority Associated Diagnoses Date/Ti me COLONOSCOPY Encounter for screening for colorectal cancer in high risk patient Family history of rectal cancer documented as of this encounter Results * US Abdomen Complete W Liver Duplex (10/18/2018 9:39 AM PIE BOTTOMER) Anatomical Region Laterality Modality Abdomen Right Ultrasound 10/18/2018 11:4 0 AM PIE BOTTOMER Impressions 10/18/2018 11:51 AM PIE BOTTOMER 1. Postoperative changes of left lobe orthotopic [...] Сергей Meneses M.D. Narrative 10/18/2018 11:51 AM PIE BOTTOMER EXAMINATION: 1. LIMITED ABDOMINAL SONOGRAM 2. LIVER [...] passes were made with an 18 gauge Gecko Audio core biopsy needle, 1.5 cm throw. The [...] Сергей Meneses M.D. us Theodore Gresham MD [facility] PROCEDURES Final Re sult documented in this encounter Visit Diagnoses Diagnosis Liver replaced by transplant (HCC)- Primary Liver replaced by transplant History of liver transplant (CMS/HCC) (HCC) Liver replaced by transplant Liver replaced by transplant (HCC) Liver replaced by transplant documented in this encounter Care Teams Ski Base Trimmer Relationship Specialty Start Date End Date Kali Cruz MD [address] [facility] [address] INTERNAL MEDICINE [place], [place] [id number] PCP - General 04/09/17 03/21/19 Munira Rick, RN [address] [facility] [address] [place] [address] Weatherization Crew Leader 04/01/18 documented as of this encounter
--- OUTSIDE RECORDS SUMMARY | 2024-10-28 06:26 | XMS_ITS | Encounter Summary ---
Author Organization [facility] Address [address] [place] [address] Care Team Providers Care Process Development Engineer Name Role Phone Kali Cruz MD Primary Care Provider [phone] Munira Rick RN Unavailable [phone] Encounter Details Date Type Department Care Team (Late st Contact Info) Description 11/25/2018 Telephone [facility] Transplant Liver [address] [facility] [phone] [place] [address] Eli Brink Social History Tobacco Use Types Packs/Day Years Used Date Smoking Tobacco: Never Smokeless Tobacco: Never Sex and Gender Information Value Date Recorded Sex Assigned at Not on file 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 11/25/18-01/09/19 Auth#[id number] C INDUSTRY INTERN * Telephone Encounter - Rafal Brown - 11/25/2018 1:08 PM CST Faxed clinical to [facility] C INDUSTRY INTERN * Telephone Encounter - Eli Brink - 11/25/2018 10:14 AM CST Patient is scheduled for the following 12/05/18 at [facility] under Dr. Gresham. Diagnosis: Liver Transplant Z94.4 [id number] MRI Abdomen MRCP with and without contrast C INDUSTRY INTERN documented in this encounter Plan of Treatment Scheduled Procedures Name Priority Associated Diagnoses Date/Ti me COLONOSCOPY Encounter for screening for colorectal cancer in high risk patient Family history of rectal cancer documented as of this encounter Visit Diagnoses Not on filedocumented in this encounter Care Teams Process Development Engineer Relationship Specialty Start Date End Date Kali Cruz MD [address] INTERNAL MEDICINE [place], [place] [id number] PCP - General 04/09/17 03/21/19 Munira Rick, RN [address] [facility] [address] [place] [address] Klystrom Tube Tester 04/01/18 documented as of this encounter
--- OUTSIDE RECORDS SUMMARY | 2024-10-28 06:27 | XMS_ITS | Encounter Summary ---
Author Organization [facility] Address [address] [place] [address] Phone Care Team Providers Care Cad Design Engineer Name Role Phone Kali Cruz MD Primary Care Provider [phone] Munira Rick RN Unavailable [phone] Encounter Details Date Type Department Care Team (Late st Contact Info) Description 04/08/2018 Orders Only [facility] Oncology [address] [facility] 7th [place] [address] [place] [address] Anita Gillespie MD [address] [facility] [address] [place], [place] [id number] High grade B-cell lymphoma (CMS/HCC) (Primary Dx) Social History Tobacco Use Types Packs/Day Years Used Date Smoking Tobacco: Never Sex and Gender Information Value Date Recorded Sex Assigned at Not on file 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 Gender Identity Not on file Sexual [...] Diagnosis Comments CBC WITH AUTO DIFFERENTIAL Routine 04/09/2018 9:09 AM CDT COMPREHENSIVE METABOLIC PANEL Routine 04/09/2018 9:09 AM CDT High grade B-cell lymphoma (CMS/HCC) documented in this encounter Results * (ABNORMAL) CBC with auto differential (04/09/2018 9:09 AM CDT) WBC 7.4 3.8 - 10.8 Thousand/uL [facility] [place] RBC, POC 5.05 4.20 - 5.80 Million/uL [facility] Hgb 16.2 13.2 - 17.1 g/dL [facility] [place] Hct 47.3 38.5 - 50.0 % [facility] MCV 93.7 80.0 - 100.0 fL [facility] [place] MCH 32.1 27.0 - 33.0 pg [facility] [place] MCHC 34.2 32.0 - 36.0 g/dL [facility] [place] Rdw 12.3 11.0 - 15.0 % [facility] Platelets 443(H) 140 - 400 Thousand/uL [facility] [place] MPV 10.1 7.5 - 12.5 fL [facility] Neutrophils, abs CANCELED 1500 - 7800 cells/uL [facility] [place] Comment:Result canceled by t he ancillary Neutrophil bands, abs CANCELED 0 - 750 cells/uL [facility] [place] Comment:Result canceled by t he ancillary Metamyelocytes, abs CANCELED 0 cells/uL [facility] [place] Comment:Result canceled by t he ancillary Absolute Myelocytes CANCELED 0 cells/uL [facility] [place] Comment:Result canceled by t he ancillary Promyelocytes, abs CANCELED 0 cells/uL [facility] [place] Comment:Result canceled by t he ancillary Lymphocytes, abs CANCELED 850 - 3900 cells/uL [facility] [place] Comment:Result canceled by t he ancillary Monocyte abs CANCELED 200 - 950 cells/uL [facility] [place] Comment:Result canceled by t he ancillary Eosinophils, abs CANCELED 15 - 500 cells/uL [facility] [place] Comment:Result canceled by t he ancillary Basophils, abs CANCELED 0 - 200 cells/uL [facility] [place] Comment:Result canceled by t he ancillary Blast, cell CANCELED 0 cells/uL [facility] [place] Comment:Result canceled by t he ancillary NRBC abs CANCELED 0 cells/uL [facility] [place] Comment:Result canceled by t he ancillary Neutrophils CANCELED % [facility] [place] Comment:Result canceled by t he ancillary Neutrophilic bands CANCELED % Q [facility] [place] Comment:Result canceled by t he ancillary Metamyelocyte pct CANCELED % [facility] [place] Comment:Result canceled by t he ancillary Myelocyte pct CANCELED % [facility] [place] Comment:Result canceled by t he ancillary Promyelocyte pct CANCELED % [facility] [place] Comment:Result canceled by t he ancillary Lymphocyte pct CANCELED % [facility] [place] Comment:Result canceled by t ancillary Reactive lymph CANCELED 0 - 10 % [facility] [place] Comment:Result canceled by t ancillary Monocytes CANCELED % [facility] [place] Comment:Result canceled by t ancillary Eosinophils CANCELED % [facility] [place] Comment:Result canceled by t ancillary Basophils CANCELED % [facility] [place] Comment:Result canceled by t ancillary Blast pct CANCELED % [facility] [place] Comment:Result canceled by t ancillary NRBC CANCELED 0 /100 WBC [facility] [place] Comment:Result canceled by t ancillary Comment [facility] [place] Comment:Few atypical lymphoc ytes noted Neutrophils, abs 3,182 1,500 - 7,800 cells/uL [facility] [place] Neutrophil bands, abs 296 0 - 750 cells/uL [facility] [place] Metamyelocytes, abs CANCELED 0 cells/uL [facility] [place] Comment:Result canceled by t ancillary Absolute Myelocytes CANCELED 0 cells/uL [facility] [place] Comment:Result canceled by t ancillary Promyelocytes, abs CANCELED 0 cells/uL [facility] [place] Comment:Result canceled by t ancillary ABSOLUTE LYMPHOCYTES 2,072 850 - 3,900 cells/uL [facility] ABSOLUTE REACTIVE LYMPHOCYTES CANCELED 0 cells/uL [facility] [place] Comment:Result canceled by t ancillary ABSOLUTE PROLYMPHOCYTES CANCELED 0 cells/uL [facility] [place] Comment:Result canceled by t ancillary ABSOLUTE PLASMA CELLS CANCELED 0 cells/uL [facility] [place] Comment:Result canceled by t he ancillary Monocyte abs 1,776(H) 200 - 950 cells/uL [facility] [place] Eosinophils, abs 74 15 - 500 cells/uL [facility] [place] Basophils, abs 0 0 - 200 cells/uL [facility] [place] Blast, cell CANCELED 0 cells/uL [facility] [place] Comment:Result canceled by t he ancillary NRBC abs CANCELED 0 cells/uL [facility] [place] Comment:Result canceled by t he ancillary Neutrophils 43.0 % [facility] [place] Neutrophilic bands 4.0 % Q [facility] [place] Metamyelocyte pct CANCELED % [facility] [place] Comment:Result canceled by t he ancillary Myelocyte pct CANCELED % [facility] [place] Comment:Result canceled by t he ancillary Promyelocyte pct CANCELED % [facility] [place] Comment:Result canceled by t he ancillary Lymphocyte pct 28.0 % [facility] [place] Reactive lymph CANCELED 0 - 10 % [facility] [place] Comment:Result canceled by t he ancillary PROLYMPHOCYTES CANCELED % [facility] [place] Comment:Result canceled by t he ancillary PLASMA CELLS CANCELED % [facility] [place] Comment:Result canceled by t he ancillary Monocytes 24.0 % [facility] [place] Eosinophils 1.0 % [facility] [place] Basophils 0 % [facility] Blast pct CANCELED % [facility] Comment:Result canceled by t he ancillary NRBC CANCELED 0 /100 WBC [facility] [place] Comment:Result canceled by t he ancillary PLATELET ESTIMATION CANCELED ADEQUATE [facility] [place] Comment:Result canceled by t he ancillary CBC MORPHOLOGY CANCELED NORMAL [facility] [place] Comment:Result canceled by t he ancillary Comment CANCELED [facility] [place] Comment:Result canceled by t he ancillary Note [facility] Comment: Although an automated CBC was ordered, our instrumentation detected an abnormality on your patient's specimen requiring us to perform a manual review. 04/09/2018 9:09 AM CDT 04/09/2018 9:09 AM CDT Narrative Resulting Agency Comment Performing Organization Information: ?Site ID: [id number] ?Name: [facility] ?Address: [facility] [place] [address] ?Director: Jason Buckner D.O., MPH us Anita Gillespie MD LAB BLOOD ORDERABLES Final Result [facility] [place] * (ABNORMAL) Comprehensive metabolic panel (04/09/2018 9:09 AM CDT) Glucose 93 65 - 99 mg/dL [facility] [place] Comment: ? Fasting reference interval BUN 14 7 - 25 mg/dL [facility] Creatinine 0.79 0.60 - 1.35 mg/dL [facility] [place] eGFR NON-AFR. [place] 125 > OR = 60 mL/min/1. 73m2 [facility] EGFR 145 > OR = 60 mL/min/1. 73m2 [facility] [place] BUN/creat ratio NOT APPLICABLE 6 - 22 (calc) [facility] [place] Sodium 144 135 - 146 mmol/L [facility] [place] Potassium, pl 4.7 3.5 - 5.3 mmol/L [facility] Chloride 105 98 - 110 mmol/L [facility] CO2 26 20 - 31 mmol/L [facility] [place] Calcium 9.8 8.6 - 10.3 mg/dL [facility] [place] Protein, sr 5.7(L) 6.1 - 8.1 g/dL [facility] [place] Albumin 4.3 3.6 - 5.1 g/dL [facility] [place] GLOBULIN 1.4(L) 1.9 - 3.7 g/dL (calc) [facility] [place] Alb/glob ratio 3.1(H) 1.0 - 2.5 (calc) [facility] [place] Bilirubin, total 0.6 0.2 - 1.2 mg/dL [facility] [place] Alk phos 373(H) 40 - 115 U/L [facility] AST 46(H) 10 - 40 U/L [facility] [place] ALT (SGPT) 93(H) 9 - 46 U/L [facility] [place] Blood specimen (specimen) 04/09/2018 9:09 AM CDT 04/09/2018 9:09 AM CDT Narrative Resulting Agency Comment Performing Organization Information: ?Site ID: [id number] ?Name: [facility] ?Address: [address] [place] [address] ?Director: Jason Buckner D.O., MPH us Anita Gillespie MD LAB BLOOD ORDERABLES Final Result [facility] [place] documented in this encounter Visit Diagnoses Diagnosis High grade B-cell lymphoma (HCC)- Primary documented in this encounter Care Teams Cad Design Engineer Relationship Specialty Start Date End Date Kali Cruz MD [address] INTERNAL MEDICINE [place], [place] [id number] PCP - General 04/09/17 03/21/19 uMnira Rick, RN [address] [address] Thoracic Medicine Physician 04/01/18 documented as of this encounter
--- OUTSIDE RECORDS SUMMARY | 2024-10-28 06:27 | XMS_ITS | Encounter Summary ---
Author Organization [facility] Address [address] [place] [address] Phone Care Team Providers Care Client Service Professional Name Role Phone Linda Chapa MD Primary Care Provider [phone] Munira Rick RN Unavailable [phone] Reason for Visit * Oncology (Routine) - Closed Specialty Diagnoses / Procedures Referred By Sascha rey Referred To Contact Oncology Diagnoses lab,rov Procedures RETURN Anita Gillespie MD Phone: tel: fax: [facility] 7th [place] [address] [place] [address] Phone: tel: fax: Referral ID Status Reason Start Date Expiration Date Visits Re quested Visits Authorized [id number] Closed 06/29/2018 10/31/[phone] Encounter Details Date Type Department Care Team (Latest Contact Info) Description 06/29/2018 9:30 AM CDT Office Visit [facility] 7th [place] [address] [place] [address] High grade B-cell lymphoma (CMS/HCC) (Primary Dx); 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) Social History Tobacco Use Types Packs/Day Years Used Date Smoking Tobacco: Never Smokeless Tobacco: Never Sex and Gender Information Value Date Recorded Sex Assigned at Not on file 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 Gender Identity Not on file Sexual Orientation Straight 08/22/2021 9: 23 AM CDT documented as of this encounter Last Filed Vital Signs Vital Sign Reading Time Taken Comments Blood Pressure 113/67 06/29/2018 8:13 AM CDT Pulse 65 06/29/2018 8:13 AM CDT Temperature 36.6 ??C (97.9 ??F) 06/29/2018 8:13 AM CD T Respiratory Rate 18 06/29/2018 8:13 AM CDT Oxygen Saturation 94% 06/29/2018 8:13 AM CDT Inhaled Oxygen Concentration - - Weight 58.8 kg (129 lb 9.6 oz) 06/29/2018 8:13 A M CDT Height - - Body Mass Index 19.71 12/18/2017 1:16 AM SEWER MAINTENANCE SUPERVISOR documented in this encounter Progress Notes * Anita Gillespie MD - 06/29/2018 12:00 AM CDT PATIENT NAME: ADI NICHOLS : 1995 JUSTEN: 06/29/2018 DIAGNOSES: 1. 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 2. 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 3. Bilateral pulmonary embolism diagnosed on 10/19/2017. TREATMENT AND DISEASE COURSE: 1. R-CHOP x 1, 08/25/2017. 2. Dose adjusted EPOCH-R x 5, 09/15/2017 - 12/2017. Post-C2 PET: DC (5PS = 4), CR post C5 3. IT chemotherapy (MTX), only with cycle 3 on 10/06/2017, complicated by intracranial hypotension. INTERVAL HISTORY: Adi returns to the [facility] for continued follow-up of his history of c-Myc positive PTLD. I last saw him on 03/30/2018. Since that time, he has been feeling well. He describes his energy as normal. He had heat stroke in May after working in his truck for many hours with no air co nditioning. He continues to have an intermittent morning cough which is nonproductive. He had a burn on his left forearm at work, which has healed nicely. He did not seek medical attention. Since hislast visit, he has not had any fevers or other signs of infection. He finished his 6-month course of Eliquis on 04/19/2018. PHYSICAL EXAMINATION: General: Very well-appearing young man resting comfortably. Performance Status: 0. Vital Signs: Blood pressure 113/67, pulse 65, temperature 36.6, O2 sat 94%. Weight 58.8 kg which isstable. Lungs: Clear to auscultation. Nodes: He has no enlarged preauricular, submandibular, cervical, supraclavicular, infraclavicular, axillary, or inguinal lymph nodes. Abdomen: Active bowel sounds. No hepatosplenomegaly. Extremities: No edema. LABORATORIES: CMP remarkable for a chronically elevated alk phos, which is currently 241, and down from his most recent reading of 373. ALT 76, AST 47, total bili 0.3, LDH 205. WBC 8.5, hemoglobin 16.9, platelets 441, normal differential. RADIOGRAPHS: None done today. IMPRESSION AND PLAN: 1. C-Myc positive PTLD, EBV positive, stage EMY, IPI 3 (stage LDH number of extranodal sites). [id number] gentleman who is now nearly 20 years status post a liver transplant for autoimmune hepatitis is now 6 months status post 1 cycle of R-CHOP and 5 cycles of dose-adjusted EPOCH-R with 3 doses of intrathecal methotrexate. He is doing extremely well and has no long-term complications from his treatment or evidence of recurrent disease. We will continue to follow him expectantly and we will see him back in 6 months. 2. History of liver transplant. The patient remains on tacrolimus 0.5 mg b.i.d. His LFTs are slightly better than they were in April. He has scheduled follow-up with Dr. Gresham in September. 3. History of pulmonary embolus. This was an incidental finding in October 2017. He completed a 6 month course of Eliquis on 04/19/2018. ELECTRONICALLY SIGNED - 07/03/2018 08:12 PM Anita Gillespie M.D. Jason Perez of Medicine NB/lexy cc: LINDA CHAPA MD [address] [place] [address] / LENO GRESHAM MD [address] [place] [address] [address], [place] [address] documented in this encounter Plan of Treatment Scheduled Procedures Name Priority Associated Diagnoses Date/Ti me COLONOSCOPY Encounter for screening for colorectal cancer in high risk patient Family history of rectal cancer documented as of this encounter Results * (ABNORMAL) CBC with auto differential (09/28/2018 9:17 AM SEWER MAINTENANCE SUPERVISOR) WBC 14.3(H) 3.8 - 9.8 K/cumm [facility] Comment:Testing performed by : [facility], [address] [place] [phone] Hgb 15.6 13.8 - 17.2 g/dL [facility] Comment:Testing performed by : [facility], [address] [place] [phone] Hct 45.8 40.7 - 50.3 % [facility] Comment:Testing performed by : [facility], [address] [place] [phone] Plt 465(H) 140 - 440 K/cumm [facility] Comment:Testing performed by : [facility], [address] [place] [phone] MPV 7.2 6.8 - 10.4 fL [facility] Comment:Testing performed by : [facility], [address] [place] [phone] RBC 4.66 4.50 - 5.70 M/cumm [facility] Comment:Testing performed by : [facility], [address] [place] [phone] MCV 98.3(H) 80.0 - 97.6 fL [facility] Comment:Testing performed by : [address] [phone] MCH 33.4 26.7 - 33.7 pg [facility] Comment:Testing performed by : [facility], [address] [place] [phone] MCHC 34.0 32.7 - 35.5 g/dL [facility] Comment:Testing performed by : [facility], [address] [place], [place] [phone] RDW CV 15.5(H) 11.8 - 14.6 % [facility] Comment:Testing performed by : [facility], [address] [place] [phone] NRBC abs 0.00 0.00 - 0.01 K/cumm [facility] Comment:Testing performed by : [facility], [address] [place] [phone] Blood specimen (specimen) 09/28/2018 9:17 AM SEWER MAINTENANCE SUPERVISOR 09/28/2018 9:20 AM SEWER MAINTENANCE SUPERVISOR Narrative [facility] - 09/28/2018 9:26 AM SEWER MAINTENANCE SUPERVISOR us Anita Gillespie MD LAB BLOOD ORDERABLES Final Result Performing Organization Address [facility] Co de Phone Number [facility] [place] [address] * Lactate dehydrogenase (LD) (09/28/2018 9:15 AM SEWER MAINTENANCE SUPERVISOR) [facility] Lactate dehydrogenase (LDH) 250 100 - 250 Units/L [facility] Blood specimen (specimen) 09/28/2018 9:15 AM SEWER MAINTENANCE SUPERVISOR 09/28/2018 9:31 AM SEWER MAINTENANCE SUPERVISOR Narrative [facility] - 09/28/2018 10:13 AM SEWER MAINTENANCE SUPERVISOR us Anita Gillespie MD LAB BLOOD ORDERABLES Final Result Performing Organization Address City/[facility] [place] [address] * (ABNORMAL) Comprehensive metabolic panel (09/28/2018 9:15 AM SEWER MAINTENANCE SUPERVISOR) Pathologist [facility] Sodium 142 135 - 145 mmol/L [facility] Potassium, pl 4.0 3.3 - 4.9 mmol/L [facility] Chloride 108 97 - 110 mmol/L [facility] CO2 30 22 - 32 mmol/L [facility] Anion gap 4 2 - 15 mmol/L [facility] BUN 9 8 - 25 mg/dL [facility] Creatinine 0.88 0.80 - 1.30 mg/dL [facility] Glucose 69(L) 70 - 199 mg/dL [facility] Comment: Interpretive Data Fasting glucose [...] 2017. Calcium 8.9 8.5 - 10.3 mg/dL [facility] Bilirubin, total 0.5 0.1 - 1.2 mg/dL [facility] Protein, pl 6.0(L) 6.5 - 8.5 g/dL [facility] Albumin 4.2 3.5 - 5.0 g/dL [facility] Alk phos 401(H) 40 - 130 Units/L [facility] ALT 143(H) 7 - 55 Units/L [facility] AST 120(H) 10 - 50 Units/L [facility] Blood specimen (specimen) 09/28/2018 9:15 AM SEWER MAINTENANCE SUPERVISOR 09/28/2018 9:31 AM SEWER MAINTENANCE SUPERVISOR Narrative [facility] - 09/28/2018 10:13 AM SEWER MAINTENANCE SUPERVISOR us Anita Gillespie MD LAB BLOOD ORDERABLES Final Result [facility] One [facility] Department [place] [address] documented in this encounter Visit Diagnoses Diagnosis High grade B-cell lymphoma (HCC)- Primary 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) 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) High grade B-cell lymphoma (HCC) History of liver transplant (CMS/HCC) (HCC) Liver replaced by transplant documented in this encounter Historical Medications * This list may reflect changes made after this encounter. predniSONE (DELTASONE) 20 mg tablet Take 10 mg by mouth. 08/08/2013 09/28/2018 acetaminophen (TYLENOL) 325 mg tablet Take 325 mg by mouth every 4 hours. 09/28/2018 added in this encounter Orders Appointment Requests Count Last Ordered Date Fi rst Ordered Date ONCBCN CLINIC APPOINTMENT REQUEST 1 018 ONCBCN LAB APPOINTMENT 1 09/28/2018 documented in this encounter Care Teams Client Service Professional Relationship Specialty Start Date End Date Linda Chapa MD [address] [place] [address] PCP - General 04/09/17 03/21/19 Munira Rick, RN [address] [facility] [address] [place] [address] Bilingual Teacher Aide 04/01/18 documented as of this encounter
--- OUTSIDE RECORDS SUMMARY | 2024-10-28 06:27 | XMS_ITS | Encounter Summary ---
Author Organization [facility] Address [address] [place] [address] Phone Care Team Providers Care Insurance Premium Auditor Name Role Phone Kali Cruz MD Primary Care Provider [phone] Munira Rick RN Unavailable [phone] Encounter Details Date Type Department Care Team (Late st Contact Info) Description 04/18/2018 Orders Only [facility] Oncology [address] [facility] 7th [place] [address] [place] [address] Anita Gillespie MD [address] [facility] [address] [place] [address] High grade B-cell lymphoma (CMS/HCC) (Primary Dx) Social History Tobacco Use Types Packs/Day Years Used Date Smoking Tobacco: Never Sex and Gender Information Value Date Recorded Sex Assigned at Not on file 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 Gender Identity Not on file Sexual Orientation Straight 08/22/2021 9: 23 AM CDT documented as of this encounter Plan of Treatment Scheduled Procedures Name Priority Associated Diagnoses Date/Ti me COLONOSCOPY Encounter for screening for colorectal cancer in high risk patient Family history of rectal cancer documented as of this encounter Procedures Procedure Name Priority Date/Time Associated Diagnosis Comments CMV DNA QN, PCR Routine 04/23/2018 8:11 AM CDT High grade B-cell lymphoma (CMS/HCC) documented in this encounter Results * CMV DNA QN, PCR Blood (04/23/2018 8:11 AM CDT) SOURCE BLOOD [facility] CMV DNA qn <200 IU/mL [facility] CMV DNA log IU/mL <2.30 Log IU/mL [facility] Comment: REFERENCE RANGE: CMV DNA, QN PCR: <200 IU/mL CMV DNA, QN PCR: <2.30 Log IU/mL This test was developed and its analytical performance characteristics have been determined by [facility]. It has not been cleared or approved by the U.S. Food and Drug Administration. This assay has been validated pursuant to the CLIA regulations and is used for clinical purposes. Blood specimen (specimen) 04/23/2018 8:11 AM CDT 04/23/2018 8:11 AM CDT Narrative Resulting Agency Comment Performing Organization Information: ?Site ID: [id number] ?Name: [facility] ?Address: [address] [place] [phone] ?Director: Richie Rodriguez MD Anita Gillespie MD LAB MICROBIOLOGY - GENERAL ORDERABLES Final Result Performing Organization Address City/[facility] Co de Phone Number [facility] [place] [place] documented in this encounter Visit Diagnoses Diagnosis High grade B-cell lymphoma (HCC)- Primary documented in this encounter Care Teams Insurance Premium Auditor Relationship Specialty Start Date End Date Kali Cruz MD [address] [place] [address] PCP - General 04/09/17 03/21/19 Munira Rick, RN [address] [facility] [address] [place] [address] Head Operator 04/01/18 documented as of this encounter
--- OUTSIDE RECORDS SUMMARY | 2024-10-28 06:27 | XMS_ITS | Encounter Summary ---
Author Organization [facility] Address [address] [place] [address] Phone Care Team Providers Care Oil Heater Operator Name Role Phone Kali Chapa MD Primary Care Provider Munira Rick RN Unavailable [phone] Encounter Details Date Type Department Care Team (Late st Contact Info) Description 09/28/2018 8:30 AM PROGRESSIVE CARE NURSE Office Visit [facility] Gastroenterology [address] [facility] 8th [place] [address] [place] [address] Theodore Gresham MD [address] [place] [address] History of liver transplant (CMS/HCC) (Primary Dx) Social History Tobacco Use Types Packs/Day Years Used Date Smoking Tobacco: Never Smokeless Tobacco: Never Sex and Gender Information Value Date Recorded Sex Assigned at Not on file Legal Sex Male 6:28 AM PROGRESSIVE CARE NURSE Gender Identity Not on file Sexual Orientation Straight 08/22/2021 9: 23 AM CDT documented as of this encounter Last Filed Vital Signs Vital Sign Reading Time Taken Comments Blood Pressure 100/64 09/28/2018 8:07 AM PROGRESSIVE CARE NURSE Pulse 56 09/28/2018 8:07 AM PROGRESSIVE CARE NURSE Temperature 36.4 ??C (97.5 ??F) 09/28/2018 8:07 AM CS T Respiratory Rate - - Oxygen Saturation - - Inhaled Oxygen Concentration - - Weight 59.1 kg (130 lb 3.2 oz) 09/28/2018 8:07 A M PROGRESSIVE CARE NURSE Height 172.7 cm (5' 8 ) 09/28/2018 8:07 AM PROGRESSIVE CARE NURSE Body Mass Index 19.8 09/28/2018 8:07 AM PROGRESSIVE CARE NURSE documented in this encounter Ordered Prescriptions Prescription Sig Dispense Quantity Refills Last Filled Start Date End Date tacrolimus (PROGRAF) 0.5 mg capsuleIndications :History of liver transplant (CMS/HCC) (HCC) Take 1 capsule (0.5 mg total) by mouth 2 (two) times a day. 180 capsule 3 09/28/2018 9 tacrolimus (PROGRAF) 0.5 mg capsuleIndications :History of liver transplant (CMS/HCC) (HCC) Take 1 capsule (0.5 mg total) by mouth 2 (two) times a day. 60 capsule 11 09/28/2018 8 documented in this encounter Progress Notes * Catalnia Campos MA - 09/28/2018 8:30 AM CST Gve pt vaccination in the Right deltoid RESSIVE CARE NURSE * Theodore Gresham MD - 09/28/2018 12:00 AM CST PATIENT NAME: ADI NICHOLS : 1995 JUSTEN: 09/28/2018 PROBLEM LIST: 1. Liver transplantation (03/03/2009). a. Cadaveric. b. Fulminant liver failure. 2. ITP. a. 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 i) R-CHOP (08/25/2017). ii) Dose adjusted EPOCH-R (09/15/2017) iii) IT chemotherapy (MTX [10/06/2017]). HISTORY OF PRESENT ILLNESS: This is a return visit of Adi Nichols to [facility]. Mr. Nichols is a 23-year-old who is 19 years post liver transplantation. His posttransplant course has been complicated by PTLD for which he received chemotherapy (detailed above) and chemotherapy in December 2017. To date, he is believed to be in complete remission. Overall, he is feeling well and has no complaints. He has no signsor symptoms of allograft dysfunction and all other systems are negative. CURRENT MEDICATIONS: Tacrolimus 0.5 mg bid. PHYSICAL EXAMINATION: VITAL SIGNS: Weight 130 pounds, blood pressure 100/64, temperature 97.5, pulse 56. GENERAL: Fit-appearing. HEENT: Anicteric sclera. NECK: Supple. CHEST: Clear to auscultation, bilaterally. CARDIAC: Regular heart tones without murmur. ABDOMEN: Soft and nontender without palpable liver or spleen tip. EXTREMITIES: No edema. LABORATORIES: (06/29/2018) bilirubin 0.3, alkaline phosphatase 241, ALT 76, AST 47. MEDICAL DECISION MAKING: Mr. Nichols remains clinically well. There has been an increase in his alkaline phosphatase since late March 2018 with mild elevations in ALT. He is scheduled to undergo repeat laboratory testing today and I added on additional lab studies including tacrolimus levels. I also took the liberty of ordering a transplant liver ultrasound. Depending upon these results, additional testing with liver biopsy may be required, but I would like to see the results of today's labs including his tacrolimus levelsbefore moving ahead. I also ordered for Mr. Nichols a flu shot and refilled his Prograf. I will plan to see him back in 1 year for follow-up with continued medical monitoring. ELECTRONICALLY SIGNED - 09/30/2018 08:30 AM Theodore Gresham MD Professor, Medicine Division of Gastroenterology KK/cam cc: LAURA FLEMING M.D. / KALI CHAPA MD / / LIVER TRANSPLANT, OFFICE / Phone: -- / RESSIVE CARE NURSE documented in this encounter Plan of Treatment Scheduled Procedures Name Priority Associated Diagnoses Date/Ti me COLONOSCOPY Encounter for screening for colorectal cancer in high risk patient Family history of rectal cancer documented as of this encounter Results * Tacrolimus level trough (09/28/2018 9:30 AM PROGRESSIVE CARE NURSE) Pathologist [facility] Tacrolimus, trough 4.6 ng/mL [facility] Comment: Interpretive Data The therapeutic range for tacrolimus can vary by transplant organ type and sample timing but a trough range of 5 - 15 ng/mL is typical. Testing performed by liquid chromatography-tandem mass spectrometry (LC- MS/MS).This test was developed using an analyte specific reagent. Its performance characteristics were determined by the [facility] in a manner consistent with CLIA requirements. This test has not been cleared or approved by the U.S. Food and Drug Administration. Current interpretive data was last revised on 2016. Blood specimen (specimen) 09/28/2018 9:30 AM PROGRESSIVE CARE NURSE 09/28/2018 9:30 AM PROGRESSIVE CARE NURSE Narrative [facility] - 09/28/2018 12:35 PM PROGRESSIVE CARE NURSE Theodore Gresham MD LAB BLOOD ORDERABLES Final Result [facility] One [facility] Department [place] [address] * (ABNORMAL) Cytomegalovirus (CMV) DNA PCR, quantitative Blood (09/28/2018 9:15 AM PROGRESSIVE CARE NURSE) [facility] CMV DNA Detected( A) [facility] Comment: Interpretive Data: The quantifiable range of this assay is 137 IUnits/mL to 9,100,000 IUnits/mL (2.14 log IUnits/mL to 6.96 log IUnits/mL). Testing was performed by the [employer] AmpliPrep/[employer] TaqMan CMV Test ([employer] Testing performed at [facility] Current interpretive data was last revised on 17. CMV DNA IU/mL <137 IUnits/mL [facility] CMV DNA log IU/mL <2.14 log IUnits/mL [facility] Blood specimen (specimen) 09/28/2018 9:15 AM PROGRESSIVE CARE NURSE 09/28/2018 2:06 PM PROGRESSIVE CARE NURSE Narrative [facility] - 09/28/2018 9:05 PM PROGRESSIVE CARE NURSE us Theodore Gresham MD LAB MICROBIOLOGY - GENERAL ORDERABLES Final Result Performing Organization Address [facility] Co de Phone Number [facility] Department [place] [address] * (ABNORMAL) Gamma GT (09/28/2018 9:15 AM PROGRESSIVE CARE NURSE) GGT 379(H) 10 - 50 Units/L [facility] Blood specimen (specimen) 09/28/2018 9:15 AM PROGRESSIVE CARE NURSE 09/28/2018 9:31 AM PROGRESSIVE CARE NURSE Narrative [facility] - 09/28/2018 10:13 AM PROGRESSIVE CARE NURSE us Theodore Gresham MD LAB BLOOD ORDERABLES Final Result Performing Organization Address [facility] de Phone Number [facility] Department [place] [address] documented in this encounter Visit Diagnoses Diagnosis History of liver transplant (CMS/HCC) (HCC)- Primary 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 09/15/2017 09/28/2018 predniSONE (DELTASONE) 20 mg tablet Take 10 mg by mouth. 08/08/2013 09/28/2018 sulfamethoxazole-trimeth oprim (BACTRIM,SEPTRA) 800-160 mg per tablet TAKE 1 TABLET BY MOUTH ON WEDNESDAY, WEDNESDAY, AND Wednesday09/08/2017 09/28/2018 valGANciclovir (VALCYTE) 450 mg tablet 09/28/2018 acetaminophen (TYLENOL) 325 mg tablet Take 325 mg by mouth every 4 hours. 09/28/2018 tacrolimus (PROGRAF) 0.5 mg capsule 2 times daily. Reorder 10/29/2015 09/28/2018 tacrolimus (PROGRAF) 0.5 mg capsuleIndications:Histo ry of liver transplant (CMS/HCC) (HCC) Take 1 capsule (0.5 mg total) by mouth 2 (two) times a day. Reorder 09/28/2018 09/28/2018 documented as of this encounter Orders Immunization/Injection Count Last Ordered Date First Ordered Date FLU VACCINE MDCK QUAD PF 4Y+ IM - FLUCELVAX 1 09/28/2018 documented in this encounter Care Teams Oil Heater Operator Relationship Specialty Start Date End Date Kali Chapa MD [address] [place] [address] PCP - General 04/09/17 03/21/19 Munira Rick, RN [address] [address] Paper Reclaiming Machine Operator 04/01/18 documented as of this encounter
--- OUTSIDE RECORDS SUMMARY | 2024-10-28 06:27 | XMS_ITS | Encounter Summary ---
Author Organization [facility] Address [address] [place] [address] Phone Care Team Providers Care Obstetric Assistant Name Role Phone Kali Cruz MD Primary Care Provider [phone] Munira Rick RN Unavailable [phone] Reason for Visit * Oncology (Routine) - Closed Specialty Diagnoses / Procedures Referred By Sascha t Referred To Contact Oncology Diagnoses lab,rov Procedures RETURN Anita Gillespie MD Phone: tel: fax: [facility] Oncology [facility] 7th [place] [address] [place] [address] Phone: tel: fax: Referral ID Status Reason Start Date Expiration Date Visits Re quested Visits Authorized [id number] Closed 06/29/2018 10/31/2018 99 99 Encounter Details Date Type Department Care Team (Late st Contact Info) Description 06/29/2018 8:45 AM CDT Lab [facility] Oncology [address] [facility] Advanced [facility] 7th [place] [address] [place] [address] Anita Gillespie MD [address] [facility] [address] [place] [address] High grade B-cell lymphoma (CMS/HCC) Discharge Disposition: Discharge to home or self care Social History Tobacco Use Types Packs/Day Years Used Date Smoking Tobacco: Never Smokeless Tobacco: Never Sex and Gender Information Value Date Recorded Sex Assigned at Not on file 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 MARKETING COMMUNICATION Gender Identity Not on file Sexual Orientation [...] Date/Time Associated Diagnosis Comments LACTATE DEHYDROGENASE Routine 06/29/2018 8:05 AM CDT High grade B-cell lymphoma (CMS/HCC) COMPREHENSIVE METABOLIC PANEL Routine 06/29/2018 8:05 AM CDT High grade B-cell lymphoma (CMS/HCC) DIFFERENTIAL AUTO Routine 06/29/2018 8:0 0 AM CDT High grade B-cell lymphoma (CMS/HCC) CBC WITH AUTO DIFFERENTIAL Routine 06/29/2018 8:00 AM CDT High grade B-cell lymphoma (CMS/HCC) documented in this encounter Results * Lactate dehydrogenase (LD) (06/29/2018 8:05 AM CDT) Lactate dehydrogenase (LDH) 205 100 - 250 Units/L [facility] Blood specimen (specimen) 06/29/2018 8:05 AM CDT 06/29/2018 8:22 AM CDT Narrative [facility] - 06/29/2018 8:56 AM CDT us Anita Gillespie MD LAB BLOOD ORDERABLES Final Result [facility] Department [place] [address] * (ABNORMAL) Comprehensive metabolic panel (06/29/2018 8:05 AM CDT) Sodium 141 135 - 145 mmol/L [facility] Potassium, pl 4.4 3.3 - 4.9 mmol/L [facility] Chloride 105 97 - 110 mmol/L [facility] CO2 28 22 - 32 mmol/L [facility] Anion gap 8 2 - 15 mmol/L [facility] BUN 12 8 - 25 mg/dL [facility] Creatinine 0.90 0.80 - 1.30 mg/dL [facility] Glucose 97 70 - 199 mg/dL [facility] Comment: Interpretive Data Fasting glucose >/= [...] 2017. Calcium 9.1 8.5 - 10.3 mg/dL [facility] Bilirubin, total 0.3 0.1 - 1.2 mg/dL [facility] Protein, pl 6.2(L) 6.5 - 8.5 g/dL [facility] Albumin 4.2 3.5 - 5.0 g/dL [facility] Alk phos 241(H) 40 - 130 Units/L [facility] ALT 76(H) 7 - 55 Units/L [facility] AST 47 10 - 50 Units/L [facility] Blood specimen (specimen) 06/29/2018 8:05 AM CDT 06/29/2018 8:22 AM CDT Narrative [facility] - 06/29/2018 8:56 AM CDT us Anita Gillespie MD LAB BLOOD ORDERABLES Final Result [facility] Department [place] [address] * (ABNORMAL) Differential, auto (06/29/2018 8:00 AM CDT) Neutrophil abs 4.6 1.8 - 6.6 K/cumm [facility] Comment:Testing performed by : [facility], [address] [place] [phone] Lymphocyte abs 1.9 1.2 - 3.3 K/cumm [facility] Comment:Testing performed by : [facility], [address] [place] [phone] Monocyte abs 1.8(H) 0.2 - 1.2 K/cumm [facility] Comment:Testing performed by : [facility], [address] [place] [phone] Eosinophil abs 0.1 0.0 - 0.5 K/cumm [facility] Comment:Testing performed by : [facility], [address] [place] [phone] Basophil abs 0.0 0.0 - 0.2 K/cumm [facility] Comment:Testing performed by : [facility], [address] [place] [phone] Neutrophil pct 54.2 % [facility] Comment: Interpretive Data Percent cell count reference ranges are not reported, since discordance with absolute values may lead to misinterpretation of CBC data. Current Interpretive Data was last revised on 2018. Testing performed by: [facility], [address] [place] [phone] Lymphocyte pct 22.5 % [facility] Comment: Interpretive Data Percent cell count reference ranges are not reported, since discordance with absolute values may lead to misinterpretation of CBC data. Current Interpretive Data was last revised on 2018. Testing performed by: [facility], [address] [place] [phone] Monocyte pct 21.5 % [facility] Comment:Testing performed by : [facility], [address] [place] [phone] Eosinophil pct 1.4 % [facility] Comment:Testing performed by : [facility], [address] [place] [phone] Basophil pct 0.4 % [facility] Comment:Testing performed by : [facility], [address] [place] [phone] Blood specimen (specimen) 06/29/2018 8:00 AM CDT 06/29/2018 8:03 AM CDT Narrative [facility] - 06/29/2018 8:09 AM CDT us Anita Gillespie MD LAB BLOOD ORDERABLES Final Result [facility] [place] [address] * (ABNORMAL) CBC with auto differential (06/29/2018 8:00 AM CDT) WBC 8.5 3.8 - 9.8 K/cumm [facility] Comment:Testing performed by : [facility], [address] [place] [phone] Hgb 16.9 13.8 - 17.2 g/dL [facility] Comment:Testing performed by : [address] [phone] Hct 48.2 40.7 - 50.3 % [facility] Comment:Testing performed by : [facility], [address] [place] [phone] Plt 441(H) 140 - 440 K/cumm [facility] Comment:Testing performed by : [facility], [address] [place] [phone] MPV 7.1 6.8 - 10.4 fL [facility] Comment:Testing performed by : [address] [phone] RBC 4.94 4.50 - 5.70 M/cumm [facility] Comment:Testing performed by : [address] [address] MCV 97.6 80.0 - 97.6 fL [facility] Comment:Testing performed by : [facility], [address] [place] [phone] MCH 34.2(H) 26.7 - 33.7 pg [facility] Comment:Testing performed by : [facility], [address] [place] [phone] MCHC 35.0 32.7 - 35.5 g/dL [facility] Comment:Testing performed by : [facility], [address] [place] [phone] RDW CV 15.2(H) 11.8 - 14.6 % [facility] Comment:Testing performed by : [facility], [address] [place] [phone] NRBC abs 0.00 0.00 - 0.01 K/cumm [facility] Comment:Testing performed by : [facility], [address] [place] [phone] Blood specimen (specimen) 06/29/2018 8:00 AM CDT 06/29/2018 8:03 AM CDT Narrative [facility] - 06/29/2018 8:09 AM CDT us Anita Gillespie MD LAB BLOOD ORDERABLES Final Result Performing Organization Address City/State/[facility] Co de Phone Number [facility] Department [place] [address] documented in this encounter Visit Diagnoses Diagnosis High grade B-cell lymphoma (HCC) documented in this encounter Care Teams Obstetric Assistant Relationship Specialty Start Date End Date Kali Cruz MD [address] [place] [address] PCP - General 04/09/17 03/21/19 Munira Rick, RN [address] [facility] [address] [place] [address] Talent Development Specialist 04/01/18 documented as of this encounter
--- OUTSIDE RECORDS SUMMARY | 2024-10-28 06:27 | XMS_ITS | Encounter Summary ---
Author Organization [facility] Address [address] [place] [address] Phone Care Team Providers Care Television Cabinet Finisher Name Role Phone Kali Cruz MD Primary Care Provider [phone] Munira Rick RN Unavailable [phone] Encounter Details Date Type Department Care Team (Late st Contact Info) Description 04/05/2018 Orders Only [facility] Oncology [address] [facility] 7th [place] [address] [place] [address] Anita Gillespie MD [address] 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) Social History Tobacco Use Types Packs/Day Years Used Date Smoking Tobacco: Never Sex and Gender Information Value Date Recorded Sex Assigned at Not on file Legal Sex Male 6:28 AM RECEIVING WORKER Gender Identity Not on file Sexual Orientation Straight 08/22/2021 9: 23 AM CDT documented as of this encounter Plan of Treatment Scheduled Orders Name Type Priority Associated Diagnoses Orde r Schedule CMV DNA QN, PCR Blood Microbiology Routine PTLD after liver transplantation (CMS/HCC) Expected: 04/09/2018 (Approximate), Expires: 04/05/2019 Scheduled Procedures Name Priority Associated Diagnoses Date/Ti me COLONOSCOPY Encounter for screening for colorectal cancer in high risk patient Family history of rectal cancer documented as of this encounter Visit Diagnoses Diagnosis 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 documented in this encounter Care Teams Television Cabinet Finisher Relationship Specialty Start Date End Date Kali Cruz MD [address] [place] [address] PCP - General 04/09/17 03/21/19 Munira Rick, RN [address] [address] Lokie Engineer 04/01/18 documented as of this encounter
--- OUTSIDE RECORDS SUMMARY | 2024-10-28 06:27 | XMS_ITS | Encounter Summary ---
Author Organization [facility] Address [address] [place] [address] Care Team Providers Care Clinical Engineering Manager Name Role Phone Kali Cruz MD Primary Care Provider [phone] Munira Rick RN Unavailable [phone] Encounter Details Date Type Department Care Team (Late st Contact Info) Description 09/30/2018 Telephone [facility] Transplant Liver [address] [facility] [address] [place] [address] Jacquelyn Welsh Social History Tobacco Use Types Packs/Day Years Used Date Smoking Tobacco: Never Smokeless Tobacco: Never Sex and Gender Information Value Date Recorded Sex Assigned at Not on file Legal Sex Male 6:28 AM TALENT CONSULTANT Gender Identity Not on file Sexual Orientation Straight 08/22/2021 9: 23 AM CDT documented as of this encounter Miscellaneous Notes * Telephone Encounter - Jacquelyn Welsh - 09/30/2018 3:27 PM CST Per Melissa ([phone]) 2 orders are needed in [facility], one for Liver US, and one for Random liver biopsy. Call her if you have questions NT CONSULTANT documented in this encounter Plan of Treatment Scheduled Procedures Name Priority Associated Diagnoses Date/Ti me COLONOSCOPY Encounter for screening for colorectal cancer in high risk patient Family history of rectal cancer documented as of this encounter Visit Diagnoses Not on filedocumented in this encounter Care Teams Clinical Engineering Manager Relationship Specialty Start Date End Date Kali Cruz MD [address] [facility] [address] [place] [address] PCP - General 04/09/17 03/21/19 Munira Rick, RN [address] [address] Regulator Operator 04/01/18 documented as of this encounter
--- OUTSIDE RECORDS SUMMARY | 2024-10-28 06:27 | XMS_ITS | Encounter Summary ---
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 [address] [place] [address] Phone: tel: fax: [facility] Oncology [address] [facility] Advanced Medicine 7th [place] [address] [place] [address] Phone: tel: Referral ID Status Reason Start Date Expiration Date Visits Re quested Visits Authorized [id number] Closed 09/28/2018 10/31/2018 99 99 Encounter Details Date Type Department Care Team (Late st Contact Info) Description 09/28/2018 9:00 AM SHOVEL MECHANIC Lab [facility] Oncology [address] [facility] Advanced Medicine 7th [place] [address] [place] [address] Anita Gillespie MD [address] 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 (CMS/HCC); High grade B-cell lymphoma (CMS/HCC); History of liver transplant (CMS/HCC) Discharge Disposition: Discharge to home or self care Social History Tobacco Use Types Packs/Day Years Used Date Smoking Tobacco: Never Smokeless Tobacco: Never Sex and Gender Information Value Date Recorded Sex Assigned at Not on file Legal Sex Male 6:28 AM SHOVEL MECHANIC Gender Identity Not on file Sexual [...] Name Priority Date/Time Associated Diagnosis Comments TACROLIMUS LEVEL, TROUGH Routine 09/28/2018 9:30 AM SHOVEL MECHANIC History of liver transplant (CMS/HCC) DIFFERENTIAL AUTO Routine 09/28/2018 9:1 7 AM SHOVEL MECHANIC High grade B-cell lymphoma (CMS/HCC) CBC WITH AUTO DIFFERENTIAL Routine 09/28/2018 9:17 AM SHOVEL MECHANIC High grade B-cell lymphoma (CMS/HCC) CYTOMEGALOVIRUS (CMV) DNA, QUANT GEN LAB Routine 09/28/2018 9:15 AM SHOVEL MECHANIC History of liver transplant (CMS/HCC) LACTATE DEHYDROGENASE Routine 09/28/2018 9:15 AM SHOVEL MECHANIC High grade B-cell lymphoma (CMS/HCC) GAMMA GT Routine 09/28/2018 9:15 AM SHOVEL MECHANIC History of liver transplant (CMS/HCC) COMPREHENSIVE METABOLIC PANEL Routine 09/28/2018 9:15 AM SHOVEL MECHANIC High grade B-cell lymphoma (CMS/HCC) documented in this encounter Results * Tacrolimus level trough (09/28/2018 9:30 AM SHOVEL MECHANIC) Tacrolimus, trough 4.6 ng/mL [facility] Comment: Interpretive Data The therapeutic range for tacrolimus can vary by transplant organ type and sample timing but a trough range of 5 - 15 ng/mL is typical. Testing performed by liquid chromatography-tandem mass spectrometry (LC- MS/MS).This test was developed using an analyte specific reagent. Its performance characteristics were determined by the [facility] in a manner consistent with CLIA requirements. This test has not been cleared or approved by the U.S. Food and Drug Administration. Current interpretive data was last revised on 2016. Blood specimen (specimen) 09/28/2018 9:30 AM SHOVEL MECHANIC 09/28/2018 9:30 AM SHOVEL MECHANIC Narrative [facility] - 09/28/2018 12:35 PM SHOVEL MECHANIC Theodore Gresham MD LAB BLOOD ORDERABLES Final Result [facility] Department [place] [address] * (ABNORMAL) Differential, auto (09/28/2018 9:17 AM SHOVEL MECHANIC) Neutrophil abs 8.9(H) 1.8 - 6.6 K/cumm [facility] Comment:Testing performed by : [facility], [address] [place] [phone] Lymphocyte abs 2.8 1.2 - 3.3 K/cumm [facility] Comment:Testing performed by : [facility], [address] [place] [phone] Monocyte abs 2.1(H) 0.2 - 1.2 K/cumm [facility] Comment:Testing performed by : [facility], [address] [place] [phone] Eosinophil abs 0.5 0.0 - 0.5 K/cumm [facility] Comment:Testing performed by : [facility], [address] [place] [phone] Basophil abs 0.1 0.0 - 0.2 K/cumm [facility] Comment:Testing performed by : [facility], [address] [place] [phone] Neutrophil pct 62.1 % [facility] Comment: Interpretive Data Percent cell count reference ranges are not reported, since discordance with absolute values may lead to misinterpretation of CBC data. Current Interpretive Data was last revised on 2018. Testing performed by: [facility], [address] [place] [phone] Lymphocyte pct 19.4 % [facility] Comment: Interpretive Data Percent cell count reference ranges are not reported, since discordance with absolute values may lead to misinterpretation of CBC data. Current Interpretive Data was last revised on 2018. Testing performed by: [facility], [address] [place] [phone] Monocyte pct 14.8 % [facility] Comment:Testing performed by : [facility], [address] [place] [phone] Eosinophil pct 3.2 % [facility] Comment:Testing performed by : [facility], [address] [place] [phone] Basophil pct 0.5 % [facility] Comment:Testing performed by : [facility], [address] [place] [phone] Blood specimen (specimen) 09/28/2018 9:17 AM SHOVEL MECHANIC 09/28/2018 9:20 AM SHOVEL MECHANIC Narrative [facility] - 09/28/2018 9:26 AM SHOVEL MECHANIC Anita Gillespie MD LAB BLOOD ORDERABLES Final Result [facility] Department [place] [address] * (ABNORMAL) CBC with auto differential (09/28/2018 9:17 AM SHOVEL MECHANIC) WBC 14.3(H) 3.8 - 9.8 K/cumm [facility] Comment:Testing performed by : [facility], [address] [place] [phone] Hgb 15.6 13.8 - 17.2 g/dL [facility] Comment:Testing performed by : [facility], [address] [place] [address] Hct 45.8 40.7 - 50.3 % [facility] Comment:Testing performed by : [facility], [address] [place] [address] Plt 465(H) 140 - 440 K/cumm [facility] Comment:Testing performed by : [facility], [address] [place] [address] MPV 7.2 6.8 - 10.4 fL [facility] Comment:Testing performed by : [place] [address] RBC 4.66 4.50 - 5.70 M/cumm [facility] Comment:Testing performed by : [place] [address] MCV 98.3(H) 80.0 - 97.6 fL [facility] Comment:Testing performed by : [facility], [address] [place] [address] MCH 33.4 26.7 - 33.7 pg [facility] Comment:Testing performed by : [place] [address] MCHC 34.0 32.7 - 35.5 g/dL [facility] Comment:Testing performed by : [place] [address] RDW CV 15.5(H) 11.8 - 14.6 % [facility] Comment:Testing performed by : [facility], [address] [place] [address] NRBC abs 0.00 0.00 - 0.01 K/cumm [facility] Comment:Testing performed by : [place] [address] Blood specimen (specimen) 09/28/2018 9:17 AM SHOVEL MECHANIC 09/28/2018 9:20 AM SHOVEL MECHANIC Narrative [facility] - 09/28/2018 9:26 AM SHOVEL MECHANIC us Anita Gillespie MD LAB BLOOD ORDERABLES Final Result Performing Organization Address [facility] Co de Phone Number [facility] [place] [address] * (ABNORMAL) Cytomegalovirus (CMV) DNA PCR, quantitative Blood (09/28/2018 9:15 AM SHOVEL MECHANIC) Pathologist [facility] CMV DNA Detected( A) [facility] Comment: Interpretive Data: The quantifiable range of this assay is 137 IUnits/mL to 9,100,000 IUnits/mL (2.14 log IUnits/mL to 6.96 log IUnits/mL). Testing was performed by the [employer] AmpliPrep/NIA TaqMan CMV Test ([employer] Testing performed at [facility] Current interpretive data was last revised on 17. CMV DNA IU/mL <137 IUnits/mL [facility] CMV DNA log IU/mL <2.14 log IUnits/mL [facility] Blood specimen (specimen) 09/28/2018 9:15 AM SHOVEL MECHANIC 09/28/2018 2:06 PM SHOVEL MECHANIC Narrative [facility] - 09/28/2018 9:05 PM SHOVEL MECHANIC Theodore Gresham MD LAB MICROBIOLOGY - GENERAL ORDERABLES Final Result Performing Organization Address [facility] de Phone Number [facility] Department [place] [address] * (ABNORMAL) Gamma GT (09/28/2018 9:15 AM SHOVEL MECHANIC) Pathologist [facility] GGT 379(H) 10 - 50 Units/L [facility] Blood specimen (specimen) 09/28/2018 9:15 AM SHOVEL MECHANIC 09/28/2018 9:31 AM SHOVEL MECHANIC Narrative [facility] - 09/28/2018 10:13 AM SHOVEL MECHANIC Theodore Gresham MD LAB BLOOD ORDERABLES Final Result Performing Organization Address City/[facility] Co de Phone Number [facility] Department [place] [address] * Lactate dehydrogenase (LD) (09/28/2018 9:15 AM SHOVEL MECHANIC) [facility] Lactate dehydrogenase (LDH) 250 100 - 250 Units/L [facility] Blood specimen (specimen) 09/28/2018 9:15 AM SHOVEL MECHANIC 09/28/2018 9:31 AM SHOVEL MECHANIC Narrative [facility] - 09/28/2018 10:13 AM SHOVEL MECHANIC us Anita Gillespie MD LAB BLOOD ORDERABLES Final Result Performing Organization Address [facility] de Phone Number [facility] [place] [address] * (ABNORMAL) Comprehensive metabolic panel (09/28/2018 9:15 AM SHOVEL MECHANIC) [facility] Sodium 142 135 - 145 mmol/L [facility] Potassium, pl 4.0 3.3 - 4.9 mmol/L [facility] Chloride 108 97 - 110 mmol/L [facility] CO2 30 22 - 32 mmol/L [facility] Anion gap 4 2 - 15 mmol/L [facility] BUN 9 8 - 25 mg/dL [facility] Creatinine 0.88 0.80 - 1.30 mg/dL [facility] Glucose 69(L) 70 - 199 mg/dL [facility] Comment: Interpretive Data Fasting glucose >/= [...] Calcium 8.9 8.5 - 10.3 mg/dL [facility] Bilirubin, total 0.5 0.1 - 1.2 mg/dL [facility] Protein, pl 6.0(L) 6.5 - 8.5 g/dL [facility] Albumin 4.2 3.5 - 5.0 g/dL [facility] Alk phos 401(H) 40 - 130 Units/L [facility] ALT 143(H) 7 - 55 Units/L [facility] AST 120(H) 10 - 50 Units/L 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
--- OUTSIDE RECORDS SUMMARY | 2024-10-28 06:27 | XMS_ITS | Encounter Summary ---
Author Organization [facility] Address [address] [place] [address] Phone Care Team Providers Care Biomass Boiler Operator Name Role Phone Kali Cruz MD Primary Care Provider [phone] Munira Rick RN Unavailable [phone] Encounter Details Date Type Department Care Team (Late st Contact Info) Description 03/31/2018 Orders Only [facility] Oncology [address] [facility] Advanced Medicine 7th [place] [address] [place] [address] Anita Gillespie MD [address] [facility] [address] [place] [address] High grade B-cell lymphoma (CMS/HCC) (Primary Dx) Social History Tobacco Use Types Packs/Day Years Used Date Smoking Tobacco: Never Sex and Gender Information Value Date Recorded Sex Assigned at Not on file Legal Sex Male 6:28 AM SYSTEM SAFETY ENGINEER Gender Identity Not on file Sexual [...] dehydrogenase (LDH) 205 100 - 250 Units/L [facility] Blood specimen (specimen) 06/29/2018 8:05 AM CDT 06/29/2018 8:22 AM CDT Narrative [facility] - 06/29/2018 8:56 AM CDT us Anita Gillespie MD LAB BLOOD ORDERABLES Final Result [facility] Department [place] [address] * (ABNORMAL) Comprehensive metabolic panel (06/29/2018 8:05 AM CDT) Pathologist [facility] Sodium 141 135 - 145 mmol/L [facility] Potassium, pl 4.4 3.3 - 4.9 mmol/L [facility] Chloride 105 97 - 110 mmol/L [facility] CO2 28 22 - 32 mmol/L [facility] Anion gap 8 2 - 15 mmol/L [facility] BUN 12 8 - 25 mg/dL [facility] Creatinine 0.90 0.80 - 1.30 mg/dL [facility] Glucose 97 70 - 199 mg/dL [facility] Comment: Interpretive Data Fasting glucose >/= 126 [...] 2017. Calcium 9.1 8.5 - 10.3 mg/dL [facility] Bilirubin, total 0.3 0.1 - 1.2 mg/dL [facility] Protein, pl 6.2(L) 6.5 - 8.5 g/dL [facility] Albumin 4.2 3.5 - 5.0 g/dL [facility] Alk phos 241(H) 40 - 130 Units/L [facility] ALT 76(H) 7 - 55 Units/L [facility] AST 47 10 - 50 Units/L [facility] Blood specimen (specimen) 06/29/2018 8:05 AM CDT 06/29/2018 8:22 AM CDT Narrative [facility] - 06/29/2018 8:56 AM CDT us Anita Gillespie MD LAB BLOOD ORDERABLES Final Result [facility] One [facility] [place] [address] * (ABNORMAL) CBC with auto differential (06/29/2018 8:00 AM CDT) WBC 8.5 3.8 - 9.8 K/cumm [facility] Comment:Testing performed by : [facility], [address] [place] [phone] Hgb 16.9 13.8 - 17.2 g/dL [facility] Comment:Testing performed by : [address] [address] Hct 48.2 40.7 - 50.3 % [facility] Comment:Testing performed by : [address] [phone] Plt 441(H) 140 - 440 K/cumm [facility] Comment:Testing performed by : [facility], [address] [place] [phone] MPV 7.1 6.8 - 10.4 fL [facility] Comment:Testing performed by : [address] [phone] RBC 4.94 4.50 - 5.70 M/cumm [facility] Comment:Testing performed by : [address] [address] MCV 97.6 80.0 - 97.6 fL [facility] Comment:Testing performed by : [facility], [address] [place] [phone] MCH 34.2(H) 26.7 - 33.7 pg [facility] Comment:Testing performed by : [facility], [facility] [address] MCHC 35.0 32.7 - 35.5 g/dL [facility] Comment:Testing performed by : [facility], [address] [place] [phone] RDW CV 15.2(H) 11.8 - 14.6 % [facility] Comment:Testing performed by : [facility], [address] [place] [phone] NRBC abs 0.00 0.00 - 0.01 K/cumm [facility] Comment:Testing performed by : [facility], [address] [place] [phone] Blood specimen (specimen) 06/29/2018 8:00 AM CDT 06/29/2018 8:03 AM CDT Narrative [facility] - 06/29/2018 8:09 AM CDT us Anita Gillespie MD LAB BLOOD ORDERABLES Final Result Performing Organization Address City/State/[facility] Co de Phone Number [facility] Department [place] [address] documented in this encounter Visit Diagnoses Diagnosis High grade B-cell lymphoma (HCC)- Primary High grade B-cell lymphoma (HCC) documented in this encounter Care Teams Biomass Boiler Operator Relationship Specialty Start Date End Date Kali Cruz MD [address] [place] [address] PCP - General 04/09/17 03/21/19 Munira Rick, RN [facility] [facility] [address] [place] [address] Partner Management Consultant 04/01/18 documented as of this encounter
--- OUTSIDE RECORDS SUMMARY | 2024-10-28 06:27 | XMS_ITS | Encounter Summary ---
Author Organization [facility] Healthcare Address [address] [place] [address] Care Team Providers Care Accountant Controller Name Role Phone Kali Cruz MD Primary Care Provider [phone] Munira Rick RN Unavailable [phone] Encounter Details Date Type Department Care Team (Late st Contact Info) Description 09/30/2018 Telephone [facility] Transplant Liver [address] [facility] [phone] [place], [place] [phone] Sharron Paez RN [address] [facility] [address] [place] [id number] Social History Tobacco Use Types Packs/Day Years Used Date Smoking Tobacco: Never Smokeless Tobacco: Never Sex and Gender Information Value Date Recorded Sex Assigned at Not on file Legal Sex Male 6:28 AM CHIEF ACCOUNTING OFFICER Gender Identity Not on file Sexual Orientation Straight 08/22/2021 9: 23 AM CDT documented as of this encounter Ordered Prescriptions Prescription Sig Dispense Quantity Refills Last Filled Start Date End Date valGANciclovir (VALCYTE) 450 mg tabletIndications: History of liver transplant (CMS/HCC) (HCC) Take 1 tablet (450 mg total) by mouth 2 (two) times a day. 60 tablet 1 09/30/2018 12/06/2018 documented in this encounter Miscellaneous Notes * Telephone Encounter - Sharron Paez RN - 09/30/2018 9:27 AM CHIEF ACCOUNTING OFFICER Called and spoke to patient mother and explained that he needs to start Valcyte 450mg bid. She would like script sent to [place]. Also needs repeat CMV PCR. Will go Wed after work, Order sent to [facility] [employer] F ACCOUNTING OFFICER documented in this encounter Plan of Treatment Scheduled Procedures Name Priority Associated Diagnoses Date/Ti me COLONOSCOPY Encounter for screening for colorectal cancer in high risk patient Family history of rectal cancer documented as of this encounter Visit Diagnoses Diagnosis History of liver transplant (CMS/HCC) (HCC)- Primary Liver replaced by transplant documented in this encounter Care Teams Accountant Controller Relationship Specialty Start Date End Date Kali Cruz MD [address] [facility] [address] INTERNAL MEDICINE [place], [place] [phone] PCP - General 04/09/17 03/21/19 Munira Rick, RN [address] [facility] [address] [place] [phone] Special Procedures Technologist 04/01/18 documented as of this encounter
--- OUTSIDE RECORDS SUMMARY | 2024-10-28 06:27 | XMS_ITS | Encounter Summary ---
Author Organization 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 Oncology [facility] 7th [place] [address] [place] [address] Phone: tel: fax: Referral ID Status Reason Start Date Expiration Date Visits Re quested Visits Authorized [id number] Closed 06/29/2018 10/31/2018 99 99 Encounter Details Date Type Department Care Team (Latest Contact Info) Description 09/28/2018 9:30 AM ROUGE PRESSER Office Visit [facility] Oncology [address] [facility] 7th [place] [address] [place] [address] 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) Social History Tobacco Use Types Packs/Day Years Used Date Smoking Tobacco: Never Smokeless Tobacco: Never Sex and Gender Information Value Date Recorded Sex Assigned at Not on file Legal Sex Male 6:28 AM ROUGE PRESSER Gender Identity Not on file Sexual Orientation Straight 08/22/2021 9: 23 AM CDT documented as of this encounter Last Filed Vital Signs Vital Sign Reading Time Taken Comments Blood Pressure 100/66 09/28/2018 9:24 AM ROUGE PRESSER Pulse 89 09/28/2018 9:24 AM ROUGE PRESSER Temperature 36.6 ??C (97.9 ??F) 09/28/2018 9:24 AM CS T Respiratory Rate 18 09/28/2018 9:24 AM ROUGE PRESSER Oxygen Saturation 96% 09/28/2018 9:24 AM ROUGE PRESSER Inhaled Oxygen Concentration - - Weight 59.1 kg (130 lb 3.2 oz) 09/28/2018 9:24 A M ROUGE PRESSER Height - - Body Mass Index 19.8 09/28/2018 8:07 AM ROUGE PRESSER documented in this encounter Progress Notes * Dick Blackburn MD - 09/28/2018 12:00 AM CST [facility] DEPART[facility] OF MEDICINE - SECTION OF BMT & LEUKEMIA [address] [place] [phone] PHONE: FAX: PATIENT NAME: ADI NICHOLS : 1995 JUSTEN: 09/28/2018 DIAGNOSES: 1. 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 2. 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 3. Bilateral pulmonary embolism diagnosed on 10/19/2017. TREATMENT AND DISEASE COURSE: 1. R-CHOP x 1, 08/25/2017. 2. Dose adjusted EPOCH-R x 5, 09/15/2017 - 12/2017. Post-C2 PET: LA (5PS = 4), CR post C5 3. IT chemotherapy (MTX), only with cycle 3 on 10/06/2017, complicated by intracranial hypotension. INTERVAL HISTORY: Mr. Nichols is a very pleasant 23-year-old gentleman who comes for scheduled return office visit in follow-up of his c-Myc positive PTLD. He was last seen on 06/29/2018. Since that time, he has been feeling well. 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 He has not had any fevers, chills, night sweats, or weight loss. He continues to have an intermittent cough and congestion, which are not productive of green or thick mucus. He has noticed a new enlarged lymphnode behind his right mandible, his mother noticed it this morning. This lymph node seems to intermittently become enlarged at times when he has infectious symptoms. PHYSICAL EXAMINATION: General: Very well-appearing young man resting comfortably. Performance Status: 0. Vital Signs: Blood pressure 113/67, pulse 65, temperature 36.6, O2 sat 94%. Weight 58.8 kg which isstable. Lungs: Clear to auscultation bilaterally with good air movement. Nodes: There is an enlarged right jugulodigastric lymph node, soft, rubbery, nontender, 1 x 1.5 cm (larger in the cranio-caudal dimension). There is no other preauricular, submandibular, cervical, supraclavicular, axillary, or inguinal lymphadenopathy. Abdomen: Normoactive bowel sounds. Soft, nontender, and nondistended. No hepatosplenomegaly. Extremities: No edema, clubbing, or cyanosis. Cardiovascular: Regular rate and rhythm. No murmurs, rubs, or gallops. Neurologic: Alert and times alert and oriented x4. Strength and sensation intact. Gait normal. LABORATORIES: White blood cell count 14.3, hemoglobin 15.6, platelet count 465. IMPRESSION AND PLAN.: 1. C-Myc positive PTLD, EBV positive, stage EMY, IPI 3 (stage LDH number of extranodal sites). [id number] gentleman is now 18 years status post liver transplant for autoimmune hepatitis and 9 months status post 1 cycle of R-CHOP and 5 cycles of dose-adjusted EPOCH-R with 3 doses of intrathecal methotrexate TIRE DUSTER PPX. He is doing extremely well and has no long-term complications from his treatment or evidence of recurrent disease. By history and exam, this enlarged lymph node is more likely reactive and we will continue to monitor it closely. We will continue to follow him expectantly and we will see him back in 3 months with his one year CT scans. 2. History of liver transplant. The patient remains on tacrolimus 0.5 mg b.i.d. He saw Dr. Gresham today who plans to repeat a live ultrasound early next year. 3. History of pulmonary embolus. This was an incidental finding in October 2017. He completed a 6 month course of Eliquis on 04/19/2018. ELECTRONICALLY SIGNED - 09/28/2018 10:50 AM Dick Blackburn M.D. Fellow I have seen and examined the patient and agree with the findings and plan of care as documented by and/or discussed with Dick Blackburn M.D.. ELECTRONICALLY SIGNED - 09/29/2018 07:57 AM Anita Gillespie M.D. Jason Diaz vendor specialist RA/SREEDHAR/jose cc: LINDA CHAPA MD [address] [place] [address] / LENO GRESHAM MD [facility] [address], [place] [address] E PRESSER documented in this encounter Plan of Treatment Scheduled Procedures Name Priority Associated Diagnoses Date/Ti me COLONOSCOPY Encounter for screening for colorectal cancer in high risk patient Family history of rectal cancer documented as of this encounter Results * Lactate dehydrogenase (LD) (12/28/2018 8:05 AM ROUGE PRESSER) Lactate dehydrogenase (LDH) 193 100 - 250 Units/L [facility] Blood specimen (specimen) 12/28/2018 8:05 AM ROUGE PRESSER 12/28/2018 8:32 AM ROUGE PRESSER Narrative [facility] - 12/28/2018 9:13 AM ROUGE PRESSER Anita Gillespie MD LAB BLOOD ORDERABLES Final Result [facility] Department [place] [address] * (ABNORMAL) Comprehensive metabolic panel (12/28/2018 8:05 AM ROUGE PRESSER) Sodium 137 135 - 145 mmol/L [facility] Potassium, pl 4.5 3.3 - 4.9 mmol/L [facility] Chloride 103 97 - 110 mmol/L [facility] CO2 29 22 - 32 mmol/L [facility] Anion gap 5 2 - 15 mmol/L [facility] BUN 11 8 - 25 mg/dL [facility] Creatinine 0.88 0.80 - 1.30 mg/dL [facility] Glucose 91 70 - 199 mg/dL [facility] Comment: Interpretive Data Fasting glucose >/= 126 [...] 2017. Calcium 9.3 8.5 - 10.3 mg/dL [facility] Bilirubin, total 0.4 0.1 - 1.2 mg/dL [facility] Protein, pl 6.3(L) 6.5 - 8.5 g/dL [facility] Albumin 4.1 3.5 - 5.0 g/dL [facility] Alk phos 304(H) 40 - 130 Units/L [facility] ALT 52 7 - 55 Units/L [facility] AST 29 10 - 50 Units/L [facility] Blood specimen (specimen) 12/28/2018 8:05 AM ROUGE PRESSER 12/28/2018 8:32 AM ROUGE PRESSER Narrative [facility] - 12/28/2018 9:13 AM ROUGE PRESSER Anita Gillespie MD LAB BLOOD ORDERABLES Final Result [facility] [place] [address] * (ABNORMAL) CBC with auto differential (12/28/2018 8:02 AM ROUGE PRESSER) WBC 12.6(H) 3.8 - 9.8 K/cumm [facility] Comment:Testing performed by : [facility], [address] [place] [phone] Hgb 15.2 13.8 - 17.2 g/dL [facility] Comment:Testing performed by : [facility], [address] [place] [phone] Hct 44.2 40.7 - 50.3 % [facility] Comment:Testing performed by : [facility], [address] [place] [phone] Plt 405 140 - 440 K/cumm [facility] Comment:Testing performed by : [address] [address] MPV 7.7 6.8 - 10.4 fL [facility] Comment:Testing performed by : [facility], [address] [place] [phone] RBC 4.52 4.50 - 5.70 M/cumm [facility] Comment:Testing performed by : [address] [address] MCV 97.8(H) 80.0 - 97.6 fL [facility] Comment:Testing performed by : [address] [address] MCH 33.6 26.7 - 33.7 pg [facility] Comment:Testing performed by : [facility], [address] [facility], [place] [address] MCHC 34.4 32.7 - 35.5 g/dL [facility] Comment:Testing performed by : [facility], [address] [place] [phone] RDW CV 14.0 11.8 - 14.6 % [facility] Comment:Testing performed by : [facility], [address] [place] [phone] NRBC abs 0.00 0.00 - 0.01 K/cumm [facility] Comment:Testing performed by : [facility], [address] [place] [phone] Blood specimen (specimen) 12/28/2018 8:02 AM ROUGE PRESSER 12/28/2018 8:05 AM ROUGE PRESSER Narrative [facility] - 12/28/2018 8:08 AM ROUGE PRESSER Anita Gillespie MD LAB BLOOD ORDERABLES Final Result [facility] [place] [address] * CT Chest Abdomen Pelvis W Contrast (12/28/2018 7:14 AM ROUGE PRESSER) Anatomical Region Laterality Modality Body N/A Computed Tomogra phy 12/28/2018 7:34 AM ROUGE PRESSER Impressions 12/28/2018 7:34 AM ROUGE PRESSER 1. ??Postsurgical changes of orthotopic left hemiliver transplantation. 2. ??Interval resolution of the previously described pulmonary emboli. 3. ??Unchanged mildly enlarged mediastinal lymph nodes are likely reactive and demonstrated no hypermetabolic activity on PET/CT 01/05/2018. Electronically signed by: Feliciano Hernandez M.D. Narrative 12/28/2018 7:34 AM ROUGE PRESSER EXAMINATION: ??Computed tomography of the chest, abdomen [...] on PET/CT 01/05/2018. Electronically signed by: Feliciano Wailynn Mary, M.D. 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) Liver replaced by transplant (HCC) Liver replaced by transplant documented in this encounter Orders Appointment Requests Count Last Ordered Date Fi rst Ordered Date ONCBCN CLINIC APPOINTMENT REQUEST 2 019 09/28/2018 ONCBCN LAB APPOINTMENT 1 12/28/2018 documented in this encounter Care Teams Supervisor Cigarette Making Department Relationship Specialty Start Date End Date Linda Chapa MD [address] INTERNAL MEDICINE [place], [place] [id number] PCP - General 04/09/17 03/21/19 Munira Rick, RN [address] [facility] [address] [place] [address] [address] Drier 04/01/18 documented as of this encounter
--- OUTSIDE RECORDS SUMMARY | 2024-10-28 06:27 | XMS_ITS | Encounter Summary ---
Author Organization [facility] Healthcare Address [address] [place] [address] Care Team Providers Care Product Marketing Programs Manager Name Role Phone Kali Cruz MD Primary Care Provider [phone] Munira Rick RN Unavailable [phone] Encounter Details Date Type Department Care Team (Late st Contact Info) Description 09/28/2018 Telephone [facility] Trans[facility] Liver [address] [facility] [id number] [place] [address] Sharita Valdez Social History Tobacco Use Types Packs/Day Years Used Date Smoking Tobacco: Never Smokeless Tobacco: Never Sex and Gender Information Value Date Recorded Sex Assigned at Not on file Legal Sex Male 6:28 AM WARDROBE CONSULTANT Gender Identity Not on file Sexual Orientation Straight 08/22/2021 9: 23 AM CDT documented as of this encounter Miscellaneous Notes * Telephone Encounter - Munira Rick RN - 09/28/2018 2:25 PM CST Returned call to pt mother. She is requesting that liver biopsy to be done 10/18/18. He will be offwork that week and would like to have biopsy/US on Wednesday. He is traveling the weekend prior to [place] to see his brother. ROBE CONSULTANT * Telephone Encounter - Sharita Valdez - 09/28/2018 1:39 PM CST Patient's mother returned your call. Please call her at [phone]. ROBE CONSULTANT documented in this encounter Plan of Treatment Scheduled Procedures Name Priority Associated Diagnoses Date/Ti me COLONOSCOPY Encounter for screening for colorectal cancer in high risk patient Family history of rectal cancer documented as of this encounter Visit Diagnoses Not on filedocumented in this encounter Care Teams Product Marketing Programs Manager Relationship Specialty Start Date End Date Kali Cruz MD [address] INTERNAL MEDICINE [place], [place] [id number] PCP - General 04/09/17 03/21/19 Munira Rick, RN [address] [facility] [address] [place] [address] Head Inspector 04/01/18 documented as of this encounter
--- OUTSIDE RECORDS SUMMARY | 2024-10-28 06:27 | XMS_ITS | Encounter Summary ---
Author Organization [facility] Address [address] [place] [address] Phone Care Team Providers Care Photographic Supervisor Name Role Phone Kali Cruz MD Primary Care Provider [phone] Munira Rick RN Unavailable Encounter Details Date Type Department Care Team (Late st Contact Info) Description 09/29/2018 Telephone [facility] Oncology [address] [facility] 7th [place] [address] [place] [address] Samreen Greene RN Social History Tobacco Use Types Packs/Day Years Used Date Smoking Tobacco: Never Smokeless Tobacco: Never Sex and Gender Information Value Date Recorded Sex Assigned at Not on file Legal Sex Male 6:28 AM MEDICAL CLAIMS ANALYST Gender Identity Not on file Sexual Orientation Straight 08/22/2021 9: 23 AM CDT documented as of this encounter Miscellaneous Notes * Telephone Encounter - Samreen Greene RN - 09/29/2018 11:55 AM MEDICAL CLAIMS ANALYST Discussed Beka's lab with her mother Brooklynn. She heard from Dr. Gresham's office and they are planning on performing an ultrasound and possible biopsy. We will look for these appointments and follow his case expectantly. I have reached out to [facility] to see if Beka had his appendix removed during his liver transplant in 1998. I have not heard back at this time, but will update him when I hear. They know to call in the interim with any questions or concerns. CAL CLAIMS ANALYST documented in this encounter Plan of Treatment Scheduled Procedures Name Priority Associated Diagnoses Date/Ti me COLONOSCOPY Encounter for screening for colorectal cancer in high risk patient Family history of rectal cancer documented as of this encounter Visit Diagnoses Not on filedocumented in this encounter Care Teams Photographic Supervisor Relationship Specialty Start Date End Date Kali Cruz MD [address] INTERNAL MEDICINE [place], [place] [id number] PCP - General 04/09/17 03/21/19 Munira Rick, RN [address] [facility] [address] [place] [address] Visual C Developer 04/01/18 documented as of this encounter
--- OUTSIDE RECORDS SUMMARY | 2024-10-28 06:27 | XMS_ITS | Encounter Summary ---
Author Organization [facility] Address [address] [place] [address] Phone Care Team Providers Care Precision Aircraft Structure Assembler Name Role Phone Kali Cruz MD Primary Care Provider [phone] Munira Rick RN Unavailable [phone] Encounter Details Date Type Department Care Team (Late st Contact Info) Description 05/20/2018 Orders Only [facility] Oncology [address] [facility] 7th [place] [address] [place] [address] Victoria Sheth RN Social History Tobacco Use Types Packs/Day Years Used Date Smoking Tobacco: Never Sex and Gender Information Value Date Recorded Sex Assigned at Not on file Legal Sex Male 6:28 AM WALLPAPER REMOVER STEAM Gender Identity Not on file Sexual Orientation [...] Discontinue Reason Start Date End Da te ELIQUIS 5 mg tablet 04/17/2018 05/20/2018 documented as of this encounter Historical Medications * This list may reflect changes made after this encounter. valGANciclovir (VALCYTE) 450 mg tablet 09/28/2018 tacrolimus (PROGRAF) 0.5 mg capsule 2 times daily. 10/29/2015 09/28/2018 sulfamethoxazole- trimethoprim (BACTRIM,SEPTRA) 800-160 mg per tablet TAKE 1 TABLET BY MOUTH ON WEDNESDAY, WEDNESDAY, AND Wednesday09/08/2017 09/28/2018 fluconazole (DIFLUCAN) 100 mg tablet daily. 09/15/2017 09/28/2018 ELIQUIS 5 mg tablet 04/17/2018 05/20/2018 added in this encounter Care Teams Precision Aircraft Structure Assembler Relationship Specialty Start Date End Date Kali Cruz MD [address] [place] [address] PCP - General 04/09/17 03/21/19 Munira Rick, RN [address] [facility] [address] [place] [address] Radiological Technician 04/01/18 documented as of this encounter
--- OUTSIDE RECORDS SUMMARY | 2024-10-28 06:27 | XMS_ITS | Encounter Summary ---
Author Organization [facility] Healthcare Address [address] [place] [address] Care Team Providers Care Animal Behaviourist Name Role Phone Kali Cruz MD Primary Care Provider [phone] Munira Rick RN Unavailable [phone] Reason for Visit * Reason Onset Date Comments Abnormal Lab 09/28/2018 Encounter Details Date Type Department Care Team (Late st Contact Info) Description 09/28/2018 Telephone [facility] Transplant Liver [address] [facility] [phone] [place], [place] [id number] Munira Rick, RN [address] [facility] [address] [place], [place] [phone] Abnormal Lab Social History Tobacco Use Types Packs/Day Years Used Date Smoking Tobacco: Never Smokeless Tobacco: Never Sex and Gender Information Value Date Recorded Sex Assigned at Not on file Legal Sex Male 6:28 AM CHEMICAL ECONOMIST Gender Identity Not on file Sexual Orientation Straight 08/22/2021 9: 23 AM CDT documented as of this encounter Miscellaneous Notes * Telephone Encounter - Munira Rick RN - 09/28/2018 1:19 PM CST Reviewed elevated LFT's with Dr Gresham. Dr. Gresham would like pt to undergo Complete Liver USwith Doppler and also be scheduled for liver biopsy on same date and time. Pt should have US first and if issues are identified that could explain the elevated LFT's, pt would not require liver biopsy. Dr. Gresham would like to know date of exam/biopsy so that he can speak with radiologist. Called Nereida and left VM to arrange testing. Called and left VM on pt phone letting him know plan and that coordinator would call back with further details. ICAL ECONOMIST documented in this encounter Plan of Treatment Scheduled Procedures Name Priority Associated Diagnoses Date/Ti nv COLONOSCOPY Encounter for screening for colorectal cancer in high risk patient Family history of rectal cancer documented as of this encounter Visit Diagnoses Not on filedocumented in this encounter Care Teams Animal Behaviourist Relationship Specialty Start Date End Date Kali Cruz MD [address] [facility] [address] [place] [address] PCP - General 04/09/17 03/21/19 Munira Rick, RN [address] [facility] [address] [place] [address] Automobile Club Membership Sales Agent 04/01/18 documented as of this encounter
--- OUTSIDE RECORDS SUMMARY | 2024-10-28 06:28 | XMS_ITS | Encounter Summary ---
Author Organization [facility] Healthcare Address [address] [place] [address] Care Team Providers Care Top Tile Decorator Name Role Phone Kali Cruz MD Primary Care Provider [phone] Encounter Details Date Type Department Care Team (Latest Contact Info) Description 01/05/2018 6:31 AM AFTERSCHOOL - 01/05/2018 11:59 PM [facility] Hospital Encounter [facility] OP INTERIM [phone] Anita Gillespie MD [address] [facility] [address] [place] [address] Discharge Disposition: Discharge to home or self care Social History Tobacco Use Types Packs/Day Years Used Date Smoking Tobacco: Never Sex and Gender Information Value Date Recorded Sex Assigned at Not on file Legal Sex Male 6:28 AM AFTERSCHOOL Gender Identity Not on file Sexual Orientation Straight 08/22/2021 9: 23 AM CDT documented as of this encounter Medications at Time of Discharge fluconazole (DIFLUCAN) 100 mg tablet daily. 09/15/2017 09/28/2018 predniSONE (DELTASONE) 20 mg tablet Take 10 mg by mouth. 08/08/2013 09/28/2018 sulfamethoxazole- trimethoprim (BACTRIM,SEPTRA) 800-160 mg per tablet TAKE 1 TABLET BY MOUTH ON WEDNESDAY, WEDNESDAY, AND Wednesday09/08/2017 09/28/2018 tacrolimus (PROGRAF) 0.5 mg capsule 2 times daily. 10/29/2015 09/28/2018 documented as of this encounter Discharge Disposition [...] Diagnosis Comments PET/CT FDG SKULL TO THIGH Routine 01/05/2018 2:55 PM AFTERSCHOOL documented in this encounter Results * PET/CT FDG Skull to Thigh (01/05/2018 2:55 PM AFTERSCHOOL) Anatomical Region Laterality Modality N/A Positron Emissio n Tomography (PET) 01/05/2018 2:55 PM AFTERSCHOOL Narrative 01/05/2018 7:27 PM AFTERSCHOOL MD ARMANDO MONDRAGON M.D. FINAL REPORT The radiology attending physician has personally reviewed this study, and has reviewed and/or edited this written report and agrees with it. ACC# ??Date Time ??Exam [id number] Jan 05, 2018 08:55:00 [id number] PET/CT Sk-Thigh EXAMINATION: ??TUMOR FDG-PET/CT IMAGING DATE OF STUDY: ??01/05/2018 SCANNER: [facility] RADIOPHARMACEUTICAL: 12.7 mCi F-18 Fluorodeoxyglucose (FDG) i.v. 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 The study is requested for restaging after completion of therapy. Initial treatment strategy. TECHNIQUE: ?? The patient's fasting blood glucose level, measured by glucometer before injection of FDG, was 100 mg/dL. ??-Gastroview was not given orally. ??After intravenous administration of FDG, noncontrast CT images were obtained for attenuation correction and for fusion with emission PET images to allow for anatomical localization of PET findings. ??Emission PET images were then obtained. ??The study was interpreted on the [employer] workstation. ??The mean liver SUV (reported for quality assurance qa lab technician purposes) is 1.8. ?? The total scanned area was skull base to the proximal thighs. ??Images of the body were obtained starting 73 minutes after injection of tracer. COMPARISON: PET/CT dated 10/06/2017. ??Reference is made to the initial PET/CT dated 04/05/2017. FINDINGS: There are no enlarged or FDG avid cervical lymph nodes. ??Resolution of the previously mildly hypermetabolic right level 3 lymph node. ??No uptake in a small right upper paratracheal lymph node described on recent 12/03/[address] (image 91), measuring up to 6 mm in short axis diameter, decreasing in size. ??There are no suspicious pulmonary nodules and no lymphadenopathy in the chest or abdomen, or pelvis. There is a persistent mildly distended hypermetabolic segment of distal small bowel with fecalization of the small bowel contents at this location (images 257-275), with SUV max up to 22.3. ??There is also a more focal region of FDG uptake in the small bowel in the anterior pelvis at image [address] evidence of a mass or focal wall thickening but with maximum SUV 15.3. ??No peritoneal nodules. 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 ??Changes of liver transplant and splenectomy. ??Right internal jugular port central venous catheter with the tip in the right atrium. ??Mild distal right hydroureter. IMPRESSION: ??1. ??No enlarged or hypermetabolic lymph nodes. 2. Focus of increased FDG uptake in the small bowel or small bowel serosa in the anterior pelvis without definitive CT correlate, which could represent a focus of residual disease. ??Differentials include focal inflammation or focal peristalsis at the time of imaging;however the focality of the uptake is concerning, given previous multifocal small bowel uptake on the April and August 2017 PET/CTs. ??Recommend attention on close interval follow-up. Alternatively, MR enterography could be considered if this would change person. ?? 3. ??Persistent hypermetabolic moderately long segment of distal small bowel with fecalization of bowel contents, which could represent an inflammatory or infectious ileitis, versus chronic stasis. ??No surrounding inflammatory change or lymphadenopathy. Electronically signed by: Shazia Dias M.D. Requested By: ANITA GILLESPIE M.D. Dictated By: ?? ARMANDO TURCIOS M.D. ??on Dec ??2017 10:27A This document has been electronically signed by: SHAZIA DIAS MD on Jan 05 2018 ??1:25P [id number] ARMANDO MONDRAGON M.D. FINAL REPORT The radiology attending physician has personally reviewed this study, and has reviewed and/or edited this written report and agrees with it. Attending: ??GILLESPIE, ??ANITA Requesting: ??GILLESPIE, ??ANITA Requesting Fax: ?? Attending Fax: ?? Attending ID: ??[id number] Requesting ID: ??[id number] Report To 1 ID: ??[id number] ? Report To 1 Name: ??, ?? Report To 1 FAX: ?? NextGen Order #: ?? Procedure Note Miscellaneous, Not In File - 01/05/2018 MD ARMANDO MONDRAGON M.D. FINAL REPORT The radiology attending physician has personally reviewed this study, and has reviewed and/or edited this written report and agrees with it. ACC# Date Time Exam [id number] Jan 05, 2018 08:55:00 [id number] PET/CT Sk-Thigh EXAMINATION: TUMOR FDG-PET/CT IMAGING DATE OF STUDY: 01/05/2018 SCANNER: [facility] RADIOPHARMACEUTICAL: 12.7 mCi F-18 Fluorodeoxyglucose (FDG) i.v. 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 The study is requested for restaging after completion of therapy. Initial treatment strategy. TECHNIQUE: The patient's fasting blood glucose level, measured by glucometer before injection of FDG, was 100 mg/dL. CHLOEGastroview was not given orally. After intravenous administration of FDG, noncontrast CT images were obtained for attenuation correction and for fusion with emission PET images to allow for anatomical localization of PET findings. Emission PET images were then obtained. The study was interpreted on the [employer] workstation. The mean liver SUV (reported for quality assurance qa lab technician purposes) is 1.8. The total scanned area was skull base to the proximal thighs. Images of the body were obtained starting 73 minutes after injection of tracer. COMPARISON: PET/CT dated 10/06/2017. Reference is made to the initial PET/CT dated 04/05/2017. FINDINGS: There are no enlarged or FDG avid cervical lymph nodes. Resolution of the previously mildly hypermetabolic right level 3 lymph node. No uptake in a small right upper paratracheal lymph node described on recent 12/03/[address] (image 91), measuring up to 6 mm in short axis diameter, decreasing in size. There are no suspicious pulmonary nodules and no lymphadenopathy in the chest or abdomen, or pelvis. There is a persistent mildly distended hypermetabolic segment of distal small bowel with fecalization of the small bowel contents at this location (images 257-275), with SUV max up to 22.3. There is also a more focal region of FDG uptake in the small bowel in the anterior pelvis at image [address] evidence of a mass or focal wall thickening but with maximum SUV 15.3. No peritoneal nodules. 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 Right internal jugular port central venous catheter with the tip in the right atrium. Mild distal right hydroureter. IMPRESSION: 1. No enlarged or hypermetabolic lymph nodes. 2. Focus of increased FDG uptake in the small bowel or small bowel serosa in the anterior pelvis without definitive CT correlate, which could represent a focus of residual disease. Differentials include focal inflammation or focal peristalsis at the time of imaging;however the focality of the uptake is concerning, given previous multifocal small bowel uptake on the April and August 2017 PET/CTs. Recommend attention on close interval follow-up. Alternatively, MR enterography could be considered if this would change person. 3. Persistent hypermetabolic moderately long segment of distal small bowel with fecalization of bowel contents, which could represent an inflammatory or infectious ileitis, versus chronic stasis. No surrounding inflammatory change or lymphadenopathy. Electronically signed by: Shazia Dias M.D. Requested By: ANITA GILLESPIE M.D. Dictated By: ARMANDO TURCIOS M.D. on Jan 05 2018 10:27A This document has been electronically signed by: SHAZIA DIAS MD on Jan 05 2018 1:25P [id number] MHLANGA, MD ARMANDO DANIELA WHITE, M.D. FINAL REPORT The radiology attending physician has personally reviewed this study, and has reviewed and/or edited this written report and agrees with it. Attending: ANITA GILLESPIE Requesting: ANITA GILLESPIE Requesting Fax: Attending Fax: Attending ID: [id number] Requesting ID: [id number] Report To 1 ID: [id number] Report To 1 Name: , Report To 1 FAX: NextGen Order #: Anita Gillespie MD IMG PET PROCEDURES Final R esult documented in this encounter Visit Diagnoses Not on filedocumented in this encounter Care Teams Top Tile Decorator Relationship Specialty Start Date End Date Kali Cruz MD [address] [facility] [address] [place] [address] PCP - General 04/09/17 03/21/19 documented as of this encounter
--- OUTSIDE RECORDS SUMMARY | 2024-10-28 06:28 | XMS_ITS | Encounter Summary ---
Author Organization [facility] Healthcare Address [address] [place] [address] Care Team Providers Care Store Operations Manager Name Role Phone Kali Cruz MD Primary Care Provider [phone] Encounter Details Date Type Department Care Team (Latest Contact Info) Description 10/27/2017 8:37 AM ROLL RECLAIMER - 10/27/2017 11:59 PM [facility] Hospital Encounter [facility] OP INTERIM [phone] Theodore Gresham MD [address] [facility] [address] [place], [place] [id number] Discharge Disposition: Discharge to home or self care Social History Tobacco Use Types Packs/Day Years Used Date Smoking Tobacco: Never Assessed Sex and Gender Information Value Date Recorded Sex Assigned at Not on file Legal Sex Male 6:28 AM ROLL RECLAIMER Gender Identity Not on file Sexual Orientation [...] Priority Date/Time Associated Diagnosis Comments TACROLIMUS LEVEL, RANDOM Routine Gen Lab 10/27/2017 9:05 AM ROLL RECLAIMER DISCHARGE LABORATORY CUMULATIVE REPORT 10/27/2017 12:00 AM ROLL RECLAIMER documented in this encounter Results * Tacrolimus level, random (10/27/2017 9:05 AM ROLL RECLAIMER) Tacrolimus, random 2.5 ng/mL [facility] Comment: Interpretive Data Testing performed by liquid chromatography-tandem mass spectrometry (LC- MS/MS).This test was developed using an analyte specific reagent. Its performance characteristics were determined by the [facility] in a manner consistent with CLIA requirements. ??This test has not been cleared or approved by the U.S. Food and Drug Administration. Current interpretive data was last revised on 2016. Blood specimen (specimen) 10/27/2017 9:05 AM ROLL RECLAIMER 10/27/2017 10:52 AM ROLL RECLAIMER Narrative [facility] - 10/27/2017 5:27 PM ROLL RECLAIMER Theodore Gresham MD LAB BLOOD ORDERABLES Final Result [facility] Department [place] [address] * DISCHARGE LABORATORY CUMULATIVE REPORT (10/27/2017 12:00 AM ROLL RECLAIMER) Narrative 10/27/2017 12:00 AM ROLL RECLAIMER Ordered by an unspecified provider. Historical Provider LAB BLOOD ORDERABLES Chata l Result documented in this encounter Visit Diagnoses Not on filedocumented in this encounter Care Teams Store Operations Manager Relationship Specialty Start Date End Date Kali Cruz MD [address] [facility] [address] [place] [id number] PCP - General 04/09/17 03/21/19 documented as of this encounter
--- OUTSIDE RECORDS SUMMARY | 2024-10-28 06:28 | XMS_ITS | Encounter Summary ---
Author Organization [facility] Healthcare Address [address] [place] [address] Care Team Providers Care Corporate Secretary Name Role Phone Kali Cruz MD Primary Care Provider [phone] Encounter Details Date Type Department Care Team (Latest Contact Info) Description 11/21/2017 11:50 AM SUSTAINABLE COMMUNITIES DESIGNER - 11/21/2017 5:15 PM [facility] Hospital Encounter [facility] OP INTERIM [phone] Anita Gillespie MD [address] [facility] [address] [place], [place] [id number] Discharge Disposition: Discharge to home or self care Social History Tobacco Use Types Packs/Day Years Used Date Smoking Tobacco: Never Sex and Gender Information Value Date Recorded Sex Assigned at Not on file Legal Sex Male 6:28 AM SUSTAINABLE COMMUNITIES DESIGNER Gender Identity Not on file Sexual Orientation Straight 08/22/2021 9: 23 AM CDT documented as of this encounter Last Filed Vital Signs Vital Sign Reading Time Taken Comments Blood Pressure 112/71 11/21/2017 12:07 PM SUSTAINABLE COMMUNITIES DESIGNER Pulse 67 11/21/2017 12:07 PM SUSTAINABLE COMMUNITIES DESIGNER Temperature - - Respiratory Rate - - Oxygen Saturation 97% 11/21/2017 12: 07 PM SUSTAINABLE COMMUNITIES DESIGNER Inhaled Oxygen Concentration - - Weight 57.6 kg (126 lb 15.8 oz) 018 12:08 PM SUSTAINABLE COMMUNITIES DESIGNER Height 172.7 cm (5' 8 ) 11/21/2017 12:0 8 PM SUSTAINABLE COMMUNITIES DESIGNER Body Mass Index 19.31 11/21/2017 12:08 PM SUSTAINABLE COMMUNITIES DESIGNER documented in this encounter Medications at Time [...] on filedocumented in this encounter Care Teams Corporate Secretary Relationship Specialty Start Date End Date Kali Cruz MD [address] [facility] [address] [facility] [address] [place] [address] PCP - General 04/09/17 03/21/19 documented as of this encounter
--- OUTSIDE RECORDS SUMMARY | 2024-10-28 06:28 | XMS_ITS | Encounter Summary ---
Author Organization [facility] Healthcare Address [address] [place] [address] Care Team Providers Care Clubhouse Manager Name Role Phone Kali Cruz MD Primary Care Provider [phone] Encounter Details Date Type Department Care Team (Latest Contact Info) Description 08/06/2017 10:10 AM CDT - 08/06/2017 11:59 PM CDT Hospital Encounter [facility] OP INTERIM [phone] Stan Valdes MD [address] [facility] [address] [place], [place] [id number] Discharge Disposition: Discharge to home or self care Social History Tobacco Use Types Packs/Day Years Used Date Smoking Tobacco: Never Assessed Sex and Gender Information Value Date Recorded Sex Assigned at Not on file Legal Sex Male 6:28 AM FACTORY ENGINEER Gender Identity Not on file Sexual Orientation Straight 08/22/2021 9: 23 AM CDT documented as of this encounter Medications at Time of Discharge predniSONE (DELTASONE) 20 mg tablet Take 10 mg by mouth. 08/08/2013 09/28/2018 tacrolimus (PROGRAF) 0.5 mg capsule 2 [...] filedocumented in this encounter Care Teams Clubhouse Manager Relationship Specialty Start Date End Date Kali Cruz MD [address] [facility] [address] [facility] [address] [place] [address] PCP - General 04/09/17 03/21/19 documented as of this encounter
--- OUTSIDE RECORDS SUMMARY | 2024-10-28 06:28 | XMS_ITS | Encounter Summary ---
Author Organization [facility] Healthcare Address [address] [place] [address] Care Team Providers Care Steel Sash Erector Name Role Phone Kali Cruz MD Primary Care Provider [phone] Encounter Details Date Type Department Care Team (Latest Contact Info) Description 10/10/2017 11:06 AM PLANNING AND ANALYSIS MANAGER - 10/10/2017 5:26 PM [facility] [[email or web address] Hospital Encounter [facility] OP INTERIM [phone] Anita Gillespie MD [address] [facility] [address] [place], [place] [id number] Discharge Disposition: Discharge to home or self care Social History Tobacco Use Types Packs/Day Years Used Date Smoking Tobacco: Never Assessed Sex and Gender Information Value Date Recorded Sex Assigned at Not on file Legal Sex Male 6:28 AM PLANNING AND ANALYSIS MANAGER Gender Identity Not on file Sexual Orientation Straight 08/22/2021 9: 23 AM CDT documented as of this encounter Last Filed Vital Signs Vital Sign Reading Time Taken Comments Blood Pressure 122/73 10/10/2017 11:14 AM PLANNING AND ANALYSIS MANAGER Pulse 66 10/10/2017 11:14 AM PLANNING AND ANALYSIS MANAGER Temperature - - Respiratory Rate - - Oxygen Saturation 98% 10/10/2017 11: 14 AM PLANNING AND ANALYSIS MANAGER Inhaled Oxygen Concentration - - Weight 56.2 kg (123 lb 15.8 oz) 017 11:14 AM PLANNING AND ANALYSIS MANAGER Height 172.7 cm (5' 8 ) 10/10/2017 11:1 4 AM PLANNING AND ANALYSIS MANAGER Body Mass Index 18.85 10/10/2017 11:14 AM PLANNING AND ANALYSIS MANAGER documented in this encounter Medications at Time [...] on filedocumented in this encounter Care Teams Steel Sash Erector Relationship Specialty Start Date End Date Kali Cruz MD [address] [facility] [address] [place] [address] [place] [address] PCP - General 04/09/17 03/21/19 documented as of this encounter
--- OUTSIDE RECORDS SUMMARY | 2024-10-28 06:28 | XMS_ITS | Encounter Summary ---
Author Organization [facility] Address [address] [place] [address] Care Team Providers Care Rig Superintendent Name Role Phone Kali Cruz MD Primary Care Provider Encounter Details Date Type Department Care Team (Latest Contact Info) Description 10/06/2017 6:19 AM BUSINESS INTELLIGENCE ENGINEER - 10/06/2017 11:59 PM [facility] Hospital Encounter [facility] OP INTERIM [phone] Anita Gillespie MD [address] [facility] [address] [place], [place] [id number] Discharge Disposition: Discharge to home or self care Social History Tobacco Use Types Packs/Day Years Used Date Smoking Tobacco: Never Assessed Sex and Gender Information Value Date Recorded Sex Assigned at Not on file Legal Sex Male 6:28 AM BUSINESS INTELLIGENCE ENGINEER Gender Identity Not on file Sexual [...] Procedure Name Priority Date/Time Associated Diagnosis Comments FLUORO GUIDED SPINE INJECTION Routine 10/06/2017 7:35 PM BUSINESS INTELLIGENCE ENGINEER CHEMO INTO DIRECTOR ORACLE RETAIL Routine 10/06/2017 7:35 PM BUSINESS INTELLIGENCE ENGINEER PET/CT FDG SKULL TO THIGH Routine 10/06/2017 2:08 PM BUSINESS INTELLIGENCE ENGINEER LEUKEMIA/LYMPHOMA STUDIES Routine Gen Lab 10/06/2017 1:15 PM BUSINESS INTELLIGENCE ENGINEER CYTOLOGY Routine 10/06/2017 1:15 PM BUSINESS INTELLIGENCE ENGINEER CSF CELL COUNT WITH DIFFERENTIAL Routine Gen Lab 10/06/2017 1:15 PM BUSINESS INTELLIGENCE ENGINEER CSF PROTEIN Routine Gen Lab 10/06/2017 1:15 PM BUSINESS INTELLIGENCE ENGINEER GLUCOSE, CSF Routine Gen Lab 10/06/2017 1:15 PM BUSINESS INTELLIGENCE ENGINEER SURGICAL PATHOLOGY Routine 10/06/2017 1: 15 PM BUSINESS INTELLIGENCE ENGINEER CYTOLOGY 10/06/2017 12:00 AM BUSINESS INTELLIGENCE ENGINEER SURGICAL PATHOLOGY 10/06/2017 12 :00 AM BUSINESS INTELLIGENCE ENGINEER documented in this encounter Results * Fluoro Guided Spine Injection (10/06/2017 7:35 PM BUSINESS INTELLIGENCE ENGINEER) Anatomical Region Laterality Modality Spine N/A Radiographic Shilpi ging 10/06/2017 7:35 PM BUSINESS INTELLIGENCE ENGINEER Narrative 10/06/2017 8:26 PM BUSINESS INTELLIGENCE ENGINEER RACHEL LEMOS M.D. MARC CLARK M.D. FINAL REPORT The radiology attending physician has personally reviewed this study, and has reviewed and/or edited this written report and agrees with it. ACC# ??Date Time ??Exam [id number] Oct 06, 2017 13:35:00 [id number] Chemo [place] Admin [id number] Oct 06, 2017 13:35:00 92829 (Neuro) Fluoro Spine proc EXAMINATION: ??Fluoroscopically guided lumbar puncture and intrathecal chemotherapy injection HISTORY: 22-year-old man with lymphoma. TECHNIQUE: The risks and benefits of the lumbar puncture including, but not limited to infection, bleeding, spinal headache, cerebrospinal fluid (CSF) leak requiring blood patch procedure, and irritation or damage to nerves causing pain or permanent injury were discussed with the patient. The patient was given the opportunity to ask questions. The patient acknowledged understanding, gave verbal and written consent, and wished to proceed. A time-out was performed prior to the procedure. Attending physician: Dr. Lemos and Dr. Li were present for the entire procedure. The L2-L3 ??level was localized with fluoroscopy. The skin overlying this level was sterilely prepped, draped, and infiltrated with 1% lidocaine for local anesthesia. Under intermittent fluoroscopic guidance, a 22 gauge 3.5 inch ??Quincke spinal needle was inserted into the thecal sac at this level. Clear CSF was identified. A total of 14 ml of CSF was removed and placed into 4 specimen tubes. The chemotherapeutic agents including 12 mg methotrexate and 50 mg hydrocortisone were then injected into the thecal sac. The patient tolerated the procedure well. The patient was then transferred to the nursing area for further observation and 1 hour of bedrest. OPENING PRESSURE: Not performed. IMPRESSION: ??Successful lumbar puncture under fluoroscopic guidance with injection of chemotherapeutic agents listed above. Electronically signed by: Rachel Lemos M.D. Requested By: Anita Gillespie ??Stephon ? Dictated By: ?? MARC CLARK M.D. ??on Oct ??2016 ??1:43P This document has been electronically signed by: RACHEL LEMOS M.D. on Oct ??2016 ??2:24P Stephon CHAPA M.D. FINAL REPORT The radiology attending physician has personally reviewed this study, and has reviewed and/or edited this written report and agrees with it. Attending: ??JOSE MIGUEL, ??ANITA Requesting: ??Jose Miguel, ??Anita Requesting Fax: ?? Attending Fax: ?? Attending ID: ??[id number] Requesting ID: ??[id number] Report To 1 ID: ??[id number] ? Report To 1 Name: ??, ?? Report To 1 FAX: ?? NextGen Order #: ?? Procedure Note Miscellaneous, Not In File - 10/06/2017 RACHEL LEMOS M.D. MARC CLARK M.D. FINAL REPORT The radiology attending physician has personally reviewed this study, and has reviewed and/or edited this written report and agrees with it. ACC# Date Time Exam [id number] Oct 06, 2017 13:35:00 [id number] Chemo [place] Admin [id number] Oct 06, 2017 13:35:00 75571 (Neuro) Fluoro Spine proc EXAMINATION: Fluoroscopically guided lumbar puncture and intrathecal chemotherapy injection HISTORY: 22-year-old man with lymphoma. TECHNIQUE: The risks and benefits of the lumbar puncture including, but not limited to infection, bleeding, spinal headache, cerebrospinal fluid (CSF) leak requiring blood patch procedure, and irritation or damage to nerves causing pain or permanent injury were discussed with the patient. The patient was given the opportunity to ask questions. The patient acknowledged understanding, gave verbal and written consent, and wished to proceed. A time-out was performed prior to the procedure. Attending physician: Dr. Lemos and Dr. Li were present for the entire procedure. The L2-L3 level was localized with fluoroscopy. The skin overlying this level was sterilely prepped, draped, and infiltrated with 1% lidocaine for local anesthesia. Under intermittent fluoroscopic guidance, a 22 gauge 3.5 inch Quincke spinal needle was inserted into the thecal sac at this level. Clear CSF was identified. A total of 14 ml of CSF was removed and placed into 4 specimen tubes. The chemotherapeutic agents including 12 mg methotrexate and 50 mg hydrocortisone were then injected into the thecal sac. The patient tolerated the procedure well. The patient was then transferred to the nursing area for further observation and 1 hour of bedrest. OPENING PRESSURE: Not performed. IMPRESSION: Successful lumbar puncture under fluoroscopic guidance with injection of chemotherapeutic agents listed above. Electronically signed by: Rachel Lemos M.D. Requested By: Anita Gillespie M.D. Dictated By: MARC CLARK M.D. on Oct 06 2017 1:43P This document has been electronically signed by: RACHEL LEMOS M.D. on Oct 06 2017 2:24P Stephon CHAPA M.D. FINAL REPORT The radiology attending physician has personally reviewed this study, and has reviewed and/or edited this written report and agrees with it. Attending: ANITA GILLESPIE Requesting: Anita Gillespie Requesting Fax: Attending Fax: Attending ID: [id number] Requesting ID: [id number] Report To 1 ID: [id number] Report To 1 Name: , Report To 1 FAX: NextGen Order #: Anita Gillespie MD IM FLUOROSCOPY PROCEDURES Final Result * Chemo Into DIRECTOR ORACLE RETAIL (10/06/2017 7:35 PM BUSINESS INTELLIGENCE ENGINEER) Anatomical Region Laterality Modality Spine N/A X-Ray Angiograph y 10/06/2017 7:35 PM BUSINESS INTELLIGENCE ENGINEER Narrative 10/06/2017 8:26 PM BUSINESS INTELLIGENCE ENGINEER RACHEL LEMOS M.D. MARC CLARK M.D. FINAL REPORT The radiology attending physician has personally reviewed this study, and has reviewed and/or edited this written report and agrees with it. ACC# ??Date Time ??Exam [id number] Oct 06, 2017 13:35:00 [id number] Chemo [place] Admin [id number] Oct 06, 2017 13:35:00 89635 (Neuro) Fluoro Spine proc EXAMINATION: ??Fluoroscopically guided lumbar puncture and intrathecal chemotherapy injection HISTORY: 22-year-old man with lymphoma. TECHNIQUE: The risks and benefits of the lumbar puncture including, but not limited to infection, bleeding, spinal headache, cerebrospinal fluid (CSF) leak requiring blood patch procedure, and irritation or damage to nerves causing pain or permanent injury were discussed with the patient. The patient was given the opportunity to ask questions. The patient acknowledged understanding, gave verbal and written consent, and wished to proceed. A time-out was performed prior to the procedure. Attending physician: Dr. Lemos and Dr. Li were present for the entire procedure. The L2-L3 ??level was localized with fluoroscopy. The skin overlying this level was sterilely prepped, draped, and infiltrated with 1% lidocaine for local anesthesia. Under intermittent fluoroscopic guidance, a 22 gauge 3.5 inch ??Quincke spinal needle was inserted into the thecal sac at this level. Clear CSF was identified. A total of 14 ml of CSF was removed and placed into 4 specimen tubes. The chemotherapeutic agents including 12 mg methotrexate and 50 mg hydrocortisone were then injected into the thecal sac. The patient tolerated the procedure well. The patient was then transferred to the nursing area for further observation and 1 hour of bedrest. OPENING PRESSURE: Not performed. IMPRESSION: ??Successful lumbar puncture under fluoroscopic guidance with injection of chemotherapeutic agents listed above. Electronically signed by: Rachel Lemos M.D. Requested By: Anita Gillespie ??Stephon ? Dictated By: ?? MARC CLARK M.D. ??on Oct ??2016 ??1:43P This document has been electronically signed by: RACHEL LEMOS M.D. on Oct ??2016 ??2:24P RACHEL LEMOS M.D. MARC CLARK M.D. FINAL REPORT The radiology attending physician has personally reviewed this study, and has reviewed and/or edited this written report and agrees with it. Attending: ??JOSE MIGUEL, ??ANITA Requesting: ??Jose Miguel, ??Anita Requesting Fax: ?? Attending Fax: ?? Attending ID: ??[id number] Requesting ID: ??[id number] Report To 1 ID: ??[id number] ? Report To 1 Name: ??, ?? Report To 1 FAX: ?? NextGen Order #: ?? Procedure Note Miscellaneous, Not In File - 10/06/2017 RACHEL LEMOS, M.D. MARC GEGIOS, M.D. FINAL REPORT The radiology attending physician has personally reviewed this study, and has reviewed and/or edited this written report and agrees with it. ACC# Date Time Exam [id number] Oct 06, 2017 13:35:00 [id number] Chemo [place] Admin [id number] Oct 06, 2017 13:35:00 70015 (Neuro) Fluoro Spine proc EXAMINATION: Fluoroscopically guided lumbar puncture and intrathecal chemotherapy injection HISTORY: 22-year-old man with lymphoma. TECHNIQUE: The risks and benefits of the lumbar puncture including, but not limited to infection, bleeding, spinal headache, cerebrospinal fluid (CSF) leak requiring blood patch procedure, and irritation or damage to nerves causing pain or permanent injury were discussed with the patient. The patient was given the opportunity to ask questions. The patient acknowledged understanding, gave verbal and written consent, and wished to proceed. A time-out was performed prior to the procedure. Attending physician: Dr. Lemos and Dr. Li were present for the entire procedure. The L2-L3 level was localized with fluoroscopy. The skin overlying this level was sterilely prepped, draped, and infiltrated with 1% lidocaine for local anesthesia. Under intermittent fluoroscopic guidance, a 22 gauge 3.5 inch Quincke spinal needle was inserted into the thecal sac at this level. Clear CSF was identified. A total of 14 ml of CSF was removed and placed into 4 specimen tubes. The chemotherapeutic agents including 12 mg methotrexate and 50 mg hydrocortisone were then injected into the thecal sac. The patient tolerated the procedure well. The patient was then transferred to the nursing area for further observation and 1 hour of bedrest. OPENING PRESSURE: Not performed. IMPRESSION: Successful lumbar puncture under fluoroscopic guidance with injection of chemotherapeutic agents listed above. Electronically signed by: Rachel Lemos M.D. Requested By: Anita Gillespie M.D. Dictated By: MARC CLARK M.D. on Oct 06 2017 1:43P This document has been electronically signed by: RACHEL LEMOS M.D. on Oct 06 2017 2:24P Stephon CHAPA M.D. FINAL REPORT The radiology attending physician has personally reviewed this study, and has reviewed and/or edited this written report and agrees with it. Attending: ANITA GILLESPIE Requesting: Anita Gillespie Requesting Fax: Attending Fax: Attending ID: [id number] Requesting ID: [id number] Report To 1 ID: [id number] Report To 1 Name: , Report To 1 FAX: NextGen Order #: Anita Gillespie MD IMG IR PROCEDURES Final Re sult * PET/CT FDG Skull to Thigh (10/06/2017 2:08 PM BUSINESS INTELLIGENCE ENGINEER) Anatomical Region Laterality Modality N/A Positron Emissio n Tomography (PET) 10/06/2017 2:08 PM BUSINESS INTELLIGENCE ENGINEER Narrative 10/06/2017 7:11 PM BUSINESS INTELLIGENCE ENGINEER Stephon ALVARADO M.D. FINAL REPORT The radiology attending physician has personally reviewed this study, and has reviewed and/or edited this written report and agrees with it. ACC# ??Date Time ??Exam [id number] Oct 06, 2017 08:08:00 [id number] PET/CT Sk-Thigh EXAMINATION: ??TUMOR FDG-PET/CT IMAGING DATE OF STUDY: ??10/06/2017 SCANNER: mCT RADIOPHARMACEUTICAL: 12.0 mCi F-18 Fluorodeoxyglucose (FDG) i.v. 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 He also received intrathecal chemotherapy. The study is requested for treatment monitoring during therapy. Subsequent treatment strategy. TECHNIQUE: ?? The patient's fasting blood glucose level, measured by glucometer before injection of FDG, was 76 mg/dL. ??-Gastroview was given orally. ??After intravenous administration of FDG, noncontrast CT images were obtained for attenuation correction and for fusion with emission PET images to allow for anatomical localization of PET findings. ??Emission PET images were then obtained. ??The study was interpreted on the [employer] workstation. ??The mean liver SUV (reported for quality engineering manager purposes) is 1.7. ?? The total scanned area was skull base to the proximal thighs. ??Images of the body were obtained starting 55 minutes after injection of tracer. COMPARISON: PET/CT dated 08/19/2017 FINDINGS: There are a few mildly FDG-avid lymph nodes in the right level 2 and 3 cervical stations. For reference, a small right level 3 lymph node at the level of thyroid cartilage, has a maximum SUV of 3.5, and approximate axial dimensions of 5 x 6 mm (by PET guidance). There previously was bulky lymphadenopathy at this site. If this node represents residual lymphadenopathy rather than post-treatment inflammation, the uptake in this lesion is greater than liver (5PS= 4). There are no other metabolically active lymph nodes or lesions above or below the diaphragm. There is symmetrically increased uptake in both scalene muscles, right pectoralis major and trapezius. ?? Additional CT findings: A right chest wall port catheter is present with its tip ending in the right atrium. ??Calcified right hilar lymph nodes are consistent with old granulomatous disease. Postsurgical changes of liver transplantation. Spleen is surgically absent. The L5/S1 vertebral body is fused. IMPRESSION: ??Marked partial metabolic response to treatment, given a small, mildly FDG-avid right level 3 lymph node at a previous site of bulky disease. If this node represents residual lymphoma rather than post treatment inflammation, the quantitative 5 PS = 4. ?? :: Electronically signed by: Serafin Deshpande M.D. Requested By: ANITA GILLESPIE M.D. Dictated By: ?? ALBERT FELIX M.D. ??on Oct ??2016 10:12A This document has been electronically signed by: SERAFIN DESHPANDE M.D. on Oct ??2016 ??1:09P [id number] ALVARADO M.D. FINAL REPORT The radiology attending physician has personally reviewed this study, and has reviewed and/or edited this written report and agrees with it. Attending: ??JOSE MIGUEL, ??ANITA Requesting: ??JOSE MIGUEL, ??ANITA Requesting Fax: ?? Attending Fax: ?? Attending ID: ??[id number] Requesting ID: ??[id number] Report To 1 ID: ??[id number] ? Report To 1 Name: ??, ?? Report To 1 FAX: ?? NextGen Order #: ?? Procedure Note Miscellaneous, Not In File - 10/06/2017 SERAFIN DESHPANDE M.D. ALBERT FELIX M.D. FINAL REPORT The radiology attending physician has personally reviewed this study, and has reviewed and/or edited this written report and agrees with it. [facility]# Date Time Exam [id number] Oct 06, 2017 08:08:00 90516 PET/CT Sk-Thigh EXAMINATION: TUMOR FDG-PET/CT IMAGING DATE OF STUDY: 10/06/2017 SCANNER: mCT RADIOPHARMACEUTICAL: 12.0 mCi F-18 Fluorodeoxyglucose (FDG) i.v. 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 He also received intrathecal chemotherapy. The study is requested for treatment monitoring during therapy. Subsequent treatment strategy. TECHNIQUE: The patient's fasting blood glucose level, measured by glucometer before injection of FDG, was 76 mg/dL. MD-Gastroview was given orally. After intravenous administration of FDG, noncontrast CT images were obtained for attenuation correction and for fusion with emission PET images to allow for anatomical localization of PET findings. Emission PET images were then obtained. The study was interpreted on the [employer] workstation. The mean liver SUV (reported for quality engineering manager purposes) is 1.7. The total scanned area was skull base to the proximal thighs. Images of the body were obtained starting 55 minutes after injection of tracer. COMPARISON: PET/CT dated 08/19/2017 FINDINGS: There are a few mildly FDG-avid lymph nodes in the right level 2 and 3 cervical stations. For reference, a small right level 3 lymph node at the level of thyroid cartilage, has a maximum SUV of 3.5, and approximate axial dimensions of 5 x 6 mm (by PET guidance). There previously was bulky lymphadenopathy at this site. If this node represents residual lymphadenopathy rather than post-treatment inflammation, the uptake in this lesion is greater than liver (5PS= 4). There are no other metabolically active lymph nodes or lesions above or below the diaphragm. There is symmetrically increased uptake in both scalene muscles, right pectoralis major and trapezius. Additional CT findings: A right chest wall port catheter is present with its tip ending in the right atrium. Calcified right hilar lymph nodes are consistent with old granulomatous disease. Postsurgical changes of liver transplantation. Spleen is surgically absent. The L5/S1 vertebral body is fused. IMPRESSION: Marked partial metabolic response to treatment, given a small, mildly FDG-avid right level 3 lymph node at a previous site of bulky disease. If this node represents residual lymphoma rather than post treatment inflammation, the quantitative 5 PS = 4. :: Electronically signed by: Serafin Deshpande M.D. Requested By: ANITA GILLESPIE M.D. Dictated By: ALBERT FELIX M.D. on Oct 06 2017 10:12A This document has been electronically signed by: SERAFIN DESHPANDE M.D. on Oct 06 2017 1:09P [id number] ALVARADO M.D. FINAL REPORT The radiology attending physician has personally reviewed this study, and has reviewed and/or edited this written report and agrees with it. Attending: ANITA GILLESPIE Requesting: ANITA GILLESPIE Requesting Fax: Attending Fax: Attending ID: [id number] Requesting ID: [id number] Report To 1 ID: [id number] Report To 1 Name: , Report To 1 [facility]X: [facility] us Anita Gillespie MD IMG PET PROCEDURES Final R esult * Cytology (10/06/2017 1:15 PM BUSINESS INTELLIGENCE ENGINEER) 10/06/2017 1:15 PM BUSINESS INTELLIGENCE ENGINEER 10/06/2017 2:24 PM BUSINESS INTELLIGENCE ENGINEER Narrative 10/07/2017 3:44 PM BUSINESS INTELLIGENCE ENGINEER [facility] [place] [address] CYTOPATHOLOGY REPORT FINAL Patient Name: ADI LARES Address: [address] Service: Oncology ??[place], [place] ??[id number] Location: [facility] Taken: 10/06/2017 Gender: ??M Received: 10/06/2017 : 1995 (Age: 22) Hospital #: [id number] Accessioned: 10/06/2017 ?? Patient Type: [facility] Ancillary Reported: 10/07/2017 Physician(s): ??Anita Gillespie M.D. ? FINAL DIAGNOSIS A. ??Cerebrospinal fluid: ? - Negative for malignancy tyc/10/07/2017 10:30 By this signature, I attest that the above diagnosis is based upon my personal examination of the slides(and/or other material indicated in the diagnosis). ?? Kavon Puentes M.D. [place] Kim, [facility](ASCP), [facility] Report Electronically Reviewed and Signed Out By ??Kavon Puentes M.D. 10/07/2017 15:44:17 Gross Description A. ??Cerebrospinal fluid: ??6 ml clear fluid - 2 Diff-Quik stained cytospins. (gs) ?? Clinical Diagnosis and History Lymphoma ?By this signature, I attest that the above diagnosis is based upon my personal examination of the slides(and/or other material). ? This Cytology report is available electronically in Clinical Desktop. The performance characteristics of some immunohistochemical stains, in-situ hybridization and fluorescence in-situ hybridization tests and immunophenotyping by flow cytometry cited in this report (if any) were determined by the Surgical Pathology Department at [facility] as part of an ongoing senior quality control technician program and in compliance with federally mandated [...] following disclaimer be attached to the report: ? This test was developed and its performance characteristics determined by the Surgical Pathology Department of [facility]. ??It has not been cleared or approved by the U. S. Food and Drug Administration. Anita Gillespie MD LAB CYTOLOGY ORDERABLES Fi nal Result * Surgical pathology (10/06/2017 1:15 PM BUSINESS INTELLIGENCE ENGINEER) 10/06/2017 1:15 PM BUSINESS INTELLIGENCE ENGINEER 10/06/2017 2:20 PM BUSINESS INTELLIGENCE ENGINEER Narrative 10/07/2017 2:14 PM BUSINESS INTELLIGENCE ENGINEER [facility] Yul[facility] [place] [address] SURGICAL PATHOLOGY REPORT FINAL Patient Name: ADI LARES ? Address: [address] [place] [address] ??Service: ??Oncology ??[place], [place] ??[id number] ??Location: ??[facility] Taken: 10/06/2017 Gender: M ?? Received: 10/06/2017 : 1995 (Age: 22) Hospital #: ??[id number] Accessioned: 10/06/2017 ?Patient Type: ??[facility] Ancillary Reported: 10/07/2017 ? Physician(s): Anita Gillespie M.D. ? Diagnosis: Cerebrospinal fluid, lumbar puncture, cytospin and flow cytometry ? - Neutrophils, small mature lymphocytes , monocytes and red blood cells - No evidence of malignancy - No B cell population identified by flow cytometry mxpb/10/07/2017 09:00 By this signature, I attest that the above diagnosis is based upon my personal examination of the slides(and/or other material indicated in the diagnosis). ?? Cliff Ribeiro M.D. ??Report Electronically Reviewed and Signed Out By ??Cliff Ribeiro M.D. 10/07/2017 14:14:48 Microscopic Description and Comment: The cytospin associated with flow cytometry shows neutrophils mixed with small mature lymphocytes and monocytes as well as a moderate amount of red blood cells. Flow cytometric analysis reveals 22% of the total events within the lymphocytic gate, of which 92% are CD3 positive T cells. ??There is no B-cell population or expression of CD20, CD19, kappa, lambda, CD5, CD10 or CD23. ?Lesvia Odell D.O. ?History: This is a 22-year-old male with a history of liver transplant and PTLD was recently started on chemotherapy. Specimen(s) Received: A: Cerebrospinal fluid Gross Description: { Not Entered } ?Abdiaziz Mccormack M.D. ? By this signature, I attest that the above diagnosis is based upon my personal examination of the slides(and/or other material). ?? Surgical Pathology report is available electronically in Clinical Desktop. The performance characteristics of some immunohistochemical stains, fluorescence in-situ hybridization tests and immunophenotyping by flow cytometry cited in this report (if any) were determined by the Surgical Pathology Department at [facility] as part of an ongoing senior quality control technician program and in compliance with federally mandated [...] determined by the Surgical Pathology Department of [facility]. ??It has not been cleared or approved by the U. S. Food and Drug Administration. Anita Gillespie MD LAB PATHOLOGY ORDERABLES F inal Result * Leukemia/lymphoma studies (10/06/2017 1:15 PM BUSINESS INTELLIGENCE ENGINEER) CD 3 Test Completed [facility] CD 7 Test Completed [facility] CD 10 Test Completed [facility] CD 19 Test Completed [facility] CD 20 Test Completed [facility] CD 23 Test Completed [facility] CD 45 Test Completed [facility] Sasser Test Completed [facility] Lambda Test Completed [facility] Frazier Stain Test Completed [facility] Leukemia/Lymp josé manuel Result See separate Surgical Pathology report. [facility] CSF 10/06/2017 1:15 PM BUSINESS INTELLIGENCE ENGINEER 10/06/2017 2:40 PM BUSINESS INTELLIGENCE ENGINEER [facility] - 10/07/2017 8:10 AM BUSINESS INTELLIGENCE ENGINEER Anita Gillespie MD LAB BLOOD ORDERABLES Final Result [facility] [place] [address] * (ABNORMAL) Cell count and differential, CSF (10/06/2017 1:15 PM BUSINESS INTELLIGENCE ENGINEER) Tube Number, CSF Tube 2 [facility] Color, CSF Colorless Colorless [facility] Clarity, CSF Clear Clear [facility] Xanthochromia , CSF Absent Absent [facility] RBC, CSF 1,379(H) 0 - 0 /cumm [facility] Nucleated cells, CSF 4 <=10 /cumm [facility] Total cells diffed Diff Not Done Cells [facility] CSF 10/06/2017 1:15 PM BUSINESS INTELLIGENCE ENGINEER 10/06/2017 2:33 PM BUSINESS INTELLIGENCE ENGINEER Narrative [facility] - 10/06/2017 4:42 PM BUSINESS INTELLIGENCE ENGINEER Anita Gillespie MD LAB BODY FLUIDS AND STOOLS ORDERABLES Final Result Performing Organization Address [facility] Phone Number [facility] [place] [address] * Glucose, CSF (10/06/2017 1:15 PM BUSINESS INTELLIGENCE ENGINEER) Glucose, CSF 58 mg/dL [facility] Comment: Cells present; results may be falsely elevated. Interpretive Data Reference Interval Information: CSF Glucose should be 60-66% of the most current plasma glucose concentration (milligrams/deciliter) CLIN. CHEM. 41/3, 343-360 (1994), Clinical Utility of Biochemical Analysis of Cerebrospinal Fluid, Mac Heller and Elliot Cowan. Current interpretive data was last revised on 2013. CSF 10/06/2017 1:15 PM BUSINESS INTELLIGENCE ENGINEER 10/06/2017 2:33 PM BUSINESS INTELLIGENCE ENGINEER Narrative [facility] - 10/06/2017 3:28 PM BUSINESS INTELLIGENCE ENGINEER Anita Gillespie MD LAB BODY FLUIDS AND STOOLS ORDERABLES Final Result Performing Organization Address [facility] [place] [address] * Protein, total, CSF (10/06/2017 1:15 PM BUSINESS INTELLIGENCE ENGINEER) Protein, CSF 36 5 - 45 mg/dL [facility] Comment:Cells present; resul ts may be falsely elevated. CSF 10/06/2017 1:15 PM BUSINESS INTELLIGENCE ENGINEER 10/06/2017 2:33 PM BUSINESS INTELLIGENCE ENGINEER Narrative [facility] - 10/06/2017 3:28 PM BUSINESS INTELLIGENCE ENGINEER Anita Gillespie MD LAB BODY FLUIDS AND STOOLS ORDERABLES Final Result [facility] [place] [address] * SURGICAL PATHOLOGY (10/06/2017 12:00 AM BUSINESS INTELLIGENCE ENGINEER) Narrative 10/06/2017 12:00 AM BUSINESS INTELLIGENCE ENGINEER Ordered by an unspecified provider. Historical Provider MD LAB PATHOLOGY ORDERABLES Final Result * CYTOLOGY (10/06/2017 12:00 AM BUSINESS INTELLIGENCE ENGINEER) Narrative 10/06/2017 12:00 AM BUSINESS INTELLIGENCE ENGINEER Ordered by an unspecified provider. [facility] Provider MD LAB CYTOLOGY ORDERABLES F inal Result documented in this encounter Visit Diagnoses Not on filedocumented in this encounter Care Teams Rig Superintendent Relationship Specialty Start Date End Date Kali Cruz MD [address] [place] [address] PCP - General 04/09/17 03/21/19 documented as of this encounter
--- OUTSIDE RECORDS SUMMARY | 2024-10-28 06:28 | XMS_ITS | Encounter Summary ---
Author Organization [facility] Healthcare Address [address] [place] [address] Care Team Providers Care Conche Operator Name Role Phone Kali Cruz MD Primary Care Provider [phone] Encounter Details Date Type Department Care Team (Latest Contact Info) Description 08/18/2017 8:28 AM CDT - 08/18/2017 11:59 PM CDT Hospital Encounter [facility] OP INTERIM [phone] Anita Gillespie MD [address] [facility] [address] [place] [address] Discharge Disposition: Discharge to home or self care Social History Tobacco Use Types Packs/Day Years Used Date Smoking Tobacco: Never Assessed Sex and Gender Information Value Date Recorded Sex Assigned at Not on file Legal Sex Male 6:28 AM C[facility]IER TU[facility] ROOM Gender Identity Not on file Sexual Orientation [...] Name Priority Date/Time Associated Diagnosis Comments NM CARDIAC BLOOD POOL IMAGING (REST) Routine 08/18/2017 2:40 PM CDT documented in this encounter Results * NM Cardiac Blood Pool Imaging (Rest) (08/18/2017 2:40 PM CDT) Anatomical Region Laterality Modality Body N/A Nuclear Medicine 08/18/2017 2:40 PM CDT Narrative 08/18/2017 3:34 PM CDT JOSHUA BAUMAN M.D. LENO SCHREIBER M.D. FINAL REPORT The radiology attending physician has personally reviewed this study, and has reviewed and/or edited this written report and agrees with it. ACC# ??Date Time ??Exam [id number] Aug 18, 2017 09:40:[id number],REST EXAMINATION: ??CARDIAC BLOOD POOL IMAGING (REST) DATE OF STUDY: 08/18/2017 RADIOPHARMACEUTICAL: 29.2 mCi Tc-99m in vivo labeled red cells i.v. HISTORY: New diagnosis of non-Hodgkin lymphoma. ??This is a baseline evaluation of cardiac function requested prior to chemotherapy. FINDINGS: The atria and great vessels are of normal size and configuration. The right ventricle is of normal size and contracts normally. ??The left ventricle is of normal size and contracts normally. ??The left ventricular ejection fraction is 72% (normal > 50%). IMPRESSION: ??Normal cardiac blood pool study. Electronically signed by: Joshua Bauman M.D. Requested By: ANITA GILLESPIE M.D. Dictated By: ?? LENO SCHREIBER M.D. ??on Aug 18 2017 10:32A This document has been electronically signed by: JOSHUA BAUMAN M.D. on Aug 18 2017 10:32A [id number] AGUERO M.D. FINAL REPORT The radiology attending physician has personally reviewed this study, and has reviewed and/or edited this written report and agrees with it. Attending: ??BERNADETTE, ??ANITA Requesting: ??BERNADETTE, ??ANITA Requesting Fax: ?? Attending Fax: ?? Attending ID: ??[id number] Requesting ID: ??[id number] Report To 1 ID: ??[id number] ? Report To 1 Name: ??, ?? Report To 1 FAX: ?? NextGen Order #: ?? Procedure Note Miscellaneous, Not In File - 08/18/2017 JOSHUA BAUMAN M.D. LENO SCHREIBER M.D. FINAL REPORT The radiology attending physician has personally reviewed this study, and has reviewed and/or edited this written report and agrees with it. ACC# Date Time Exam [id number] Aug 18, 2017 09:40:[id number],REST EXAMINATION: CARDIAC BLOOD POOL IMAGING (REST) DATE OF STUDY: 08/18/2017 RADIOPHARMACEUTICAL: 29.2 mCi Tc-99m in vivo labeled red cells i.v. HISTORY: New diagnosis of non-Hodgkin lymphoma. This is a baseline evaluation of cardiac function requested prior to chemotherapy. FINDINGS: The atria and great vessels are of normal size and configuration. The right ventricle is of normal size and contracts normally. The left ventricle is of normal size and contracts normally. The left ventricular ejection fraction is 72% (normal > 50%). IMPRESSION: Normal cardiac blood pool study. Electronically signed by: Joshua Bauman M.D. Requested By: ANITA GILLESPIE M.D. Dictated By: LENO SCHREIBER M.D. on Aug 18 2017 10:32A This document has been electronically signed by: JOSHUA BAUMAN M.D. on Aug 18 2017 10:32A [id number] AGUERO M.D. FINAL REPORT The radiology attending physician has personally reviewed this study, and has reviewed and/or edited this written report and agrees with it. Attending: ANITA GILLESPIE Requesting: ANITA GILLESPIE Requesting Fax: Attending Fax: Attending ID: [id number] Requesting ID: [id number] Report To 1 ID: [id number] Report To 1 Name: , Report To 1 FAX: NextGen Order #: Anita Gillespie MD IMG NM PROCEDURES Edited R esult - Final documented in this encounter Visit Diagnoses Not on filedocumented in this encounter Care Teams Conche Operator Relationship Specialty Start Date End Date Kali Cruz MD [address] [facility] [place] [id number] PCP - General 04/09/17 03/21/19 documented as of this encounter
--- OUTSIDE RECORDS SUMMARY | 2024-10-28 06:28 | XMS_ITS | Encounter Summary ---
Author Organization [facility] Healthcare Address [address] [place] [address] Care Team Providers Care Coater Carbon Paper Name Role Phone Kali Cruz MD Primary Care Provider [phone] Encounter Details Date Type Department Care Team (Latest Contact Info) Description 10/11/2017 10:13 AM [facility] - 10/11/2017 11:59 PM [facility] Hospital Encounter [facility] OP INTERIM [phone] Anita Gillespie MD [address] [facility] [address] [place], [place] [id number] Discharge Disposition: Discharge to home or self [...] on filedocumented in this encounter Care Teams Coater Carbon Paper Relationship Specialty Start Date End Date Kali Cruz MD [address] [facility] [address] [place] [address] PCP - General 04/09/17 03/21/19 documented as of this encounter
--- OUTSIDE RECORDS SUMMARY | 2024-10-28 06:28 | XMS_ITS | Encounter Summary ---
Author Organization [facility] Healthcare Address [address] [place] [address] Care Team Providers Care Cross Cut Saw Operator Name Role Phone Kali Cruz MD Primary Care Provider [phone] Encounter Details Date Type Department Care Team (Latest Contact Info) Description 10/11/2017 9:58 AM ENGAGEMENT SPECIALIST - 10/11/2017 11:59 PM [facility] Hospital [facility] [phone] Anita Gillespie MD [address] [facility] [address] [place], [place] [id number] Discharge Disposition: Discharge to home or self care Social History Tobacco Use Types Packs/Day Years Used Date Smoking Tobacco: Never Assessed Sex and Gender Information Value Date Recorded Sex Assigned at Not on file Legal Sex Male 6:28 AM ENGAGEMENT SPECIALIST Gender Identity Not on file Sexual [...] Diagnosis Comments FLUORO GUIDED SPINE INJECTION Routine 10/11/2017 6:12 PM ENGAGEMENT SPECIALIST CHEMO INTO ROLLER CHECKER Routine 10/11/2017 6:12 PM ENGAGEMENT SPECIALIST DIFFERENTIAL AUTO Routine Gen Lab 10/11/2017 10: 56 AM ENGAGEMENT SPECIALIST CBC WITH AUTO DIFFERENTIAL Routine Gen Lab 10/11/2017 10:56 AM ENGAGEMENT SPECIALIST PROTIME-INR Routine Gen Lab 10/11/2017 10:56 AM ENGAGEMENT SPECIALIST documented in this encounter Results * Fluoro Guided Spine Injection (10/11/2017 6:12 PM ENGAGEMENT SPECIALIST) Anatomical Region Laterality Modality Spine N/A Radiographic Shilpi ging 10/11/2017 6:12 PM ENGAGEMENT SPECIALIST Narrative 10/11/2017 8:40 PM ENGAGEMENT SPECIALIST SHANELL MINOR M.D. HANH LOU M.D. FINAL REPORT The radiology attending physician has personally reviewed this study, and has reviewed and/or edited this written report and agrees with it. ACC# ??Date Time ??Exam [id number] Oct 11, 2017 12:12:00 72358 Chemo [place] Admin [id number] Oct 11, 2017 12:12:00 00571 (Neuro) Fluoro Spine proc EXAMINATION: ??Fluoroscopically-guided lumbar puncture and intrathecal chemotherapy injection HISTORY: 22 year-old man with B-cell lymphoma. TECHNIQUE: The risks and benefits of [...] prior to the procedure. Attending physician: Dr. Minor was present for the entire procedure. The L2-L3 ??level was localized with fluoroscopy. The skin overlying this level was sterilely prepped, draped, and infiltrated with 1% lidocaine for local anesthesia. Under intermittent fluoroscopic guidance, a 22 gauge 3.5 inch ??Quincke spinal needle was inserted into the thecal sac at this level. Due to the existence of a moderate to severe positional headache, no cerebrospinal fluid was removed. ??Therefore, the chemotherapeutic agents including 12 mg methotrexate and 50 mg hydrocortisone were injected into the thecal sac. The patient tolerated the procedure well. The patient was then transferred to the nursing area for further observation and 1 hour of bedrest. OPENING PRESSURE: Not performed. IMPRESSION: ??Successful lumbar puncture under fluoroscopic guidance with injection of chemotherapeutic agents listed above. Electronically signed by: Shanell Minor M.D. Requested By: Anita Gillespie ??Stephon ? Dictated By: ?? HANH LOU M.D. ??on Oct 11 2017 12:43P This document has been electronically signed by: SHANELL MINOR M.D. on Oct 11 2017 ??2:38P Stephon LAZARO M.D. FINAL REPORT The radiology attending physician has personally reviewed this study, and has reviewed and/or edited this written report and agrees with it. Attending: ??JOSE MIGUEL, ??ANITA Requesting: ??Jose Miguel, ??Anita Requesting Fax: ?? Attending Fax: ?? Attending ID: ??[id number] Requesting ID: ??[id number] Report To 1 ID: ??[id number] ? Report To 1 Name: ??, ?? Report To 1 FAX: ?? NextGen Order #: ?? Procedure Note Miscellaneous, Not In File - 10/11/2017 Stephon LAZARO M.D. FINAL REPORT The radiology attending physician has personally reviewed this study, and has reviewed and/or edited this written report and agrees with it. [facility]# Date Time Exam [id number] Oct 11, 2017 12:12:00 04345 Chemo [place] Admin [id number] Oct 11, 2017 12:12:00 05142 (Neuro) Fluoro Spine proc EXAMINATION: Fluoroscopically-guided lumbar puncture and intrathecal chemotherapy injection HISTORY: 22 year-old man with B-cell lymphoma. TECHNIQUE: The risks and benefits of [...] prior to the procedure. Attending physician: Dr. Minor was present for the entire procedure. The L2-L3 level was localized with fluoroscopy. The skin overlying this level was sterilely prepped, draped, and infiltrated with 1% lidocaine for local anesthesia. Under intermittent fluoroscopic guidance, a 22 gauge 3.5 inch Quincke spinal needle was inserted into the thecal sac at this level. Due to the existence of a moderate to severe positional headache, no cerebrospinal fluid was removed. Therefore, the chemotherapeutic agents including 12 mg methotrexate and 50 mg hydrocortisone were injected into the thecal sac. The patient tolerated the procedure well. The patient was then transferred to the nursing area for further observation and 1 hour of bedrest. OPENING PRESSURE: Not performed. IMPRESSION: Successful lumbar puncture under fluoroscopic guidance with injection of chemotherapeutic agents listed above. Electronically signed by: Shanell Minor M.D. Requested By: Anita Gillespie M.D. Dictated By: HANH LOU M.D. on Oct 11 2017 12:43P This document has been electronically signed by: SHANELL MINOR M.D. on Oct 11 2017 2:38P Stephon LAZARO M.D. FINAL REPORT The radiology attending physician has personally reviewed this study, and has reviewed and/or edited this written report and agrees with it. Attending: ANITA GILLESPIE Requesting: Anita Gillespie Requesting Fax: Attending Fax: Attending ID: [id number] Requesting ID: [id number] Report To 1 ID: [id number] Report To 1 Name: , Report To 1 FAX: NextGen Order #: Anita Gillespie MD IM FLUOROSCOPY PROCEDURES Final Result * Chemo Into ROLLER CHECKER (10/11/2017 6:12 PM ENGAGEMENT SPECIALIST) Anatomical Region Laterality Modality Spine N/A X-Ray Angiograph y 10/11/2017 6:12 PM ENGAGEMENT SPECIALIST Narrative 10/11/2017 8:40 PM ENGAGEMENT SPECIALIST SHANELL MINOR M.D. HANH LOU M.D. FINAL REPORT The radiology attending physician has personally reviewed this study, and has reviewed and/or edited this written report and agrees with it. ACC# ??Date Time ??Exam [id number] Oct 11, 2017 12:12:00 46811 Chemo [place] Admin [id number] Oct 11, 2017 12:12:00 37385 (Neuro) Fluoro Spine proc EXAMINATION: ??Fluoroscopically-guided lumbar puncture and intrathecal chemotherapy injection HISTORY: 22 year-old man with B-cell lymphoma. TECHNIQUE: The risks and benefits of [...] prior to the procedure. Attending physician: Dr. Minor was present for the entire procedure. The L2-L3 ??level was localized with fluoroscopy. The skin overlying this level was sterilely prepped, draped, and infiltrated with 1% lidocaine for local anesthesia. Under intermittent fluoroscopic guidance, a 22 gauge 3.5 inch ??Quincke spinal needle was inserted into the thecal sac at this level. Due to the existence of a moderate to severe positional headache, no cerebrospinal fluid was removed. ??Therefore, the chemotherapeutic agents including 12 mg methotrexate and 50 mg hydrocortisone were injected into the thecal sac. The patient tolerated the procedure well. The patient was then transferred to the nursing area for further observation and 1 hour of bedrest. OPENING PRESSURE: Not performed. IMPRESSION: ??Successful lumbar puncture under fluoroscopic guidance with injection of chemotherapeutic agents listed above. Electronically signed by: Shanell Minor M.D. Requested By: Anita Gillespie ??MKelechi. ? Dictated By: ?? HANH LOU M.D. ??on Oct 11 2017 12:43P This document has been electronically signed by: SHANELL MINOR M.D. on Oct 11 2017 ??2:38P Stephon LAZARO M.D. FINAL REPORT The radiology attending physician has personally reviewed this study, and has reviewed and/or edited this written report and agrees with it. Attending: ??JOSE MIGUEL, ??ANITA Requesting: ??Jose Miguel, ??Anita Requesting Fax: ?? Attending Fax: ?? Attending ID: ??[id number] Requesting ID: ??[id number] Report To 1 ID: ??[id number] ? Report To 1 Name: ??, ?? Report To 1 FAX: ?? NextGen Order #: ?? Procedure Note Miscellaneous, Not In File - 10/11/2017 SHANELL MINOR M.D. HANH LOU M.D. FINAL REPORT The radiology attending physician has personally reviewed this study, and has reviewed and/or edited this written report and agrees with it. ACC# Date Time Exam [id number] Oct 11, 2017 12:12:00 91658 Chemo [place] Admin [id number] Oct 11, 2017 12:12:00 70407 (Neuro) Fluoro Spine proc EXAMINATION: Fluoroscopically-guided lumbar puncture and intrathecal chemotherapy injection HISTORY: 22 year-old man with B-cell lymphoma. TECHNIQUE: The risks and benefits of [...] prior to the procedure. Attending physician: Dr. Minor was present for the entire procedure. The L2-L3 level was localized with fluoroscopy. The skin overlying this level was sterilely prepped, draped, and infiltrated with 1% lidocaine for local anesthesia. Under intermittent fluoroscopic guidance, a 22 gauge 3.5 inch Quincke spinal needle was inserted into the thecal sac at this level. Due to the existence of a moderate to severe positional headache, no cerebrospinal fluid was removed. Therefore, the chemotherapeutic agents including 12 mg methotrexate and 50 mg hydrocortisone were injected into the thecal sac. The patient tolerated the procedure well. The patient was then transferred to the nursing area for further observation and 1 hour of bedrest. OPENING PRESSURE: Not performed. IMPRESSION: Successful lumbar puncture under fluoroscopic guidance with injection of chemotherapeutic agents listed above. Electronically signed by: Shanell Minor M.D. Requested By: Anita Gillespie M.D. Dictated By: HANH LOU M.D. on Oct 11 2017 12:43P This document has been electronically signed by: SHANELL MINOR M.D. on Oct 11 2017 2:38P Stephon LAZARO M.D. FINAL REPORT The radiology attending physician has personally reviewed this study, and has reviewed and/or edited this written report and agrees with it. Attending: ANITA GILLESPIE Requesting: Anita Gillespie Requesting Fax: Attending Fax: Attending ID: [id number] Requesting ID: [id number] Report To 1 ID: [id number] Report To 1 Name: , Report To 1 FAX: NextGen Order #: Anita Gillespie MD IM IR PROCEDURES Final Re sult * Protime-INR (10/11/2017 10:56 AM ENGAGEMENT SPECIALIST) PT 10.9 9.2 - 14.0 sec [facility] INR 0.96 0.81 - 1.22 [facility] Comment: Interpretive Data Inpatient therapeutic ranges* Atrial fibrillation ?2.0-3.0 INR Venous thrombo-embolism ?2.0-3.0 INR Bioprosthetic heart valve ?* Mechanical heart valve, bileaflet or tilting disk,aortic position ? 2.0-3.0 INR All other,or bileaflet or tilting disk, in mitral position ? 2.5-3.5 INR *See the pharmacy resource directory (PHRED) for an updated copy of the Tool Book at [email or web address] Current Interpretive Data was last revised 2012. Blood specimen (specimen) 10/11/2017 10:56 AM ENGAGEMENT SPECIALIST 10/11/2017 11:01 AM ENGAGEMENT SPECIALIST Narrative [facility] - 10/11/2017 11:26 AM ENGAGEMENT SPECIALIST us Anita Gillespie MD LAB BLOOD ORDERABLES Final Result [facility] [place] [address] * (ABNORMAL) Differential, auto (10/11/2017 10:56 AM ENGAGEMENT SPECIALIST) Neutrophil pct 85.9 % [facility] Imm gran pct 1.2 % [facility] Lymphocyte pct 4.1 % [facility] Monocyte pct 8.6 % [facility] Eosinophil pct 0.1 % [facility] Basophil pct 0.1 % [facility] Neutrophil abs 5.80 1.70 - 6.50 K/cumm [facility] Imm gran abs 0.08 0.00 - 0.10 K/cumm [facility] Lymphocyte abs 0.28(L) 0.80 - 3.30 K/cumm [facility] Monocyte abs 0.58 0.20 - 0.80 K/cumm [facility] Eosinophil abs 0.01 0.00 - 0.50 K/cumm [facility] Basophil abs 0.01 0.00 - 0.10 K/cumm [facility] Blood specimen (specimen) 10/11/2017 10:56 AM ENGAGEMENT SPECIALIST 10/11/2017 11:01 AM ENGAGEMENT SPECIALIST Narrative [facility] - 10/11/2017 11:16 AM ENGAGEMENT SPECIALIST us Anita Gillespie MD LAB BLOOD ORDERABLES Final Result [facility] Department [place] [address] * (ABNORMAL) CBC with auto differential (10/11/2017 10:56 AM ENGAGEMENT SPECIALIST) WBC 6.76 3.80 - 9.90 K/cumm [facility] RBC 4.07(L) 4.30 - 5.80 M/cumm [facility] Hgb 13.3 13.0 - 17.5 g/dL [facility] Hct 36.5(L) 38.9 - 50.3 % [facility] MCV 89.7 81.3 - 96.4 fL [facility] MCH 32.7 27.1 - 33.3 pg [facility] MCHC 36.4(H) 32.3 - 35.7 g/dL [facility] RDW CV 16.5(H) 11.1 - 14.9 % [facility] RDW SD 53.7(H) 35.7 - 48.1 fL [facility] Plt 300 150 - 400 K/cumm [facility] MPV 9.6 9.1 - 12.3 fL [facility] NRBC 0.0 0.0 - 0.2 % [facility] NRBC abs 0.00 0.00 - 0.01 K/cumm [facility] Blood specimen (specimen) 10/11/2017 10:56 AM ENGAGEMENT SPECIALIST 10/11/2017 11:01 AM ENGAGEMENT SPECIALIST Narrative [facility] - 10/11/2017 11:16 AM ENGAGEMENT SPECIALIST us Anita Gillespie MD LAB BLOOD ORDERABLES Final Result [facility] Department [place] [address] documented in this encounter Visit Diagnoses Not on filedocumented in this encounter Care Teams Cross Cut Saw Operator Relationship Specialty Start Date End Date Kali Cruz MD [address] [place] [address] [facility] [place] [id number] PCP - General 04/09/17 03/21/19 documented as of this encounter
--- OUTSIDE RECORDS SUMMARY | 2024-10-28 06:28 | XMS_ITS | Encounter Summary ---
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 Gender Identity Not on file Sexual [...] Diagnosis Comments CBC WITH AUTO DIFFERENTIAL Routine Gen Lab 05/07/2017 1:47 PM CDT documented in this encounter Results * (ABNORMAL) CBC with auto differential (05/07/2017 1:47 PM CDT) WBC 8.7 3.8 - 9.8 K/cumm [facility] RBC 4.50 4.50 - 5.70 M/cumm [facility] Hgb 14.5 13.8 - 17.2 g/dL [facility] Hct 42.5 40.7 - 50.3 % [facility] Mean Cellular Volume - CAM 94.5 80.0 - 97.6 fL [facility] Mean Cellular Hemoglobin - CAM 32.3 26.7 - 33.7 pg [facility] Mean Cellular Hemoglobin Concentration - CAM 34.1 32.7 - 35.5 g/dL [facility] Rdw 15.3(H) 11.8 - 14.6 % [facility] Plt 5(C) 140 - 440 K/cumm [facility] Comment:Verified by peripher al smear. Mean Platelet Volume - CAM 12.2(H) 6.8 - 10.4 fL [facility] NRBC 0.8(H) 0.0 - 0.2 % [facility] NRBC abs 0.07(H) 0.00 - 0.01 K/cumm [facility] Blood specimen (specimen) 05/07/2017 1:47 PM CDT 05/07/2017 1:50 PM CDT us Regine Garcia MD LAB BLOOD ORDERABLES Edited Result - Final [facility] Department [place] [address] documented in this encounter Visit Diagnoses Not on filedocumented in this encounter Additional Health Concerns Infection Onset Date Last Indicated Resolved Time [facility] Comment:Resolved - Flag applied in error. 03/11/2017 03/11/2017 05/31/2017 12:00 AM CDT documented as of this encounter Care Teams Cellophaner Relationship Specialty Start Date End Date Kali Cruz MD [address] [facility] [address] [place] [address] PCP - General 04/09/17 03/21/19 documented as of this encounter
--- OUTSIDE RECORDS SUMMARY | 2024-10-28 06:28 | XMS_ITS | Encounter Summary ---
Author Organization [facility] Healthcare Address [address] [place] [address] Care Team Providers Care Hydramatic Specialist Name Role Phone Kali Cruz MD Primary Care Provider [phone] Encounter Details Date Type Department Care Team (Latest Contact Info) Description 08/19/2017 6:54 AM CDT - 08/19/2017 11:59 PM CDT Hospital Encounter [facility]IM [phone] Anita Gillespie MD [address] [facility] [address] [place] [address] Discharge Disposition: Discharge to home or self care Social History Tobacco Use Types Packs/Day Years Used Date Smoking Tobacco: Never Assessed Sex and Gender Information Value Date Recorded Sex Assigned at Not on file 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 LEXIE CABRAL M.D. FINAL REPORT The radiology attending physician has personally reviewed this study, and has reviewed and/or edited this written report and agrees with it. ACC# ??Date Time ??Exam [id number] Aug 19, 2017 08:54:00 [id number] PET/CT Sk-Thigh EXAMINATION: ??TUMOR FDG-PET/CT IMAGING DATE OF STUDY: ??08/19/2017 ? SCANNER: [facility] RADIOPHARMACEUTICAL: 14.4 mCi F-18 Fluorodeoxyglucose (FDG) i.v. 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 The patient's tacrolimus and steroid dose were decreased as a result. The study is requested for repeat staging after interval reduction of immunosuppression. Initial treatment strategy. TECHNIQUE: ?? The patient's fasting blood glucose level, measured by glucometer before injection of FDG, was 85 mg/dL. ??-Gastroview was given orally. ??After intravenous administration of FDG, noncontrast CT images were obtained for attenuation correction and for fusion with emission PET images to allow for anatomical localization of PET findings. ??Emission PET images were then obtained. ??The study was interpreted on the [employer] workstation. ??The mean liver SUV (reported for auditor/quality purposes) is 1.6. ?? The total scanned area was skull base to the proximal thighs. ??Images of the body were obtained starting 61 minutes after injection of tracer. ? COMPARISON: 04/05/2017 FINDINGS: There is extensive FDG-avid right cervical lymphadenopathy involving all levels that is much worse when compared to the prior study. The max SUV in the right cervical lymph nodes is 41.7 (image 69/389). There are also mildly FDG-avid left cervical lymph nodes. There are FDG-avid bilateral axillary lymph nodes, right worse than left. A right axillary node has max SUV 28.2 (previously 8). Some of the axillary lymph nodes have decreased uptake compared to the prior study but still demonstrate increased uptake on today's study. There is diffuse, hypermetabolic mediastinal and bilateral hilar lymphadenopathy. There are FDG-avid mesenteric and retroperitoneal lymph nodes. A mesenteric node in the right hemiabdomen at image 217 has max SUV 4. A retroperitoneal node at image 248 has max SUV 36.5. Additional FDG-avid lymph nodes are present posterior to the left psoas muscle, new since the prior study. There are mildly FDG-avid bilateral inguinal lymph nodes. There are FDG-avid bilateral common iliac, external iliac, and internal iliac lymph nodes. There are bilateral pulmonary nodules, many of which have increased uptake. A nodule in the right lower lobe at image 151 has max SUV 3.3 (previously 3.6). ??Additional, small pulmonary nodules also have increased uptake despite their small size (e.g. right middle lobe nodule at image 139). There are focal areas of increased uptake within or in the serosa of the bowel (e.g. right hemiabdomen, image 252, max SUV 18.1). There is no increased uptake within the bone marrow. Additional CT findings: Calcified right hilar lymph nodes are consistent with old granulomatous disease. Postsurgical changes of orthotopic liver transplantation. Spleen is absent. IMPRESSION: ??1. Interval progression of disease with diffuse lymphadenopathy, much of which is worsened. 5PS=5. 2. Multiple bilateral FDG-avid pulmonary nodules are also concerning for disease involvement. 3. Multiple foci of increased uptake are seen within the bowel or serosa of the bowel wall, concerning for bowel involvement. Electronically signed by: Bassem Nur M.D. Requested By: ANITA GILLESPIE M.D. Dictated By: ?? LEXIE CABRAL M.D. ??on Aug 19 2017 ??1:29P This document has been electronically signed by: BASSEM NUR M.D. on Aug 19 2017 ??1:29P [id number] CHEN, M.D. LEXIE CABRAL M.D. FINAL REPORT The radiology attending physician has personally reviewed this study, and has reviewed and/or edited this written report and agrees with it. Attending: ??GILLESPIE, ??ANITA Requesting: ??GILLESPIE, ??ANITA Requesting Fax: ?? Attending Fax: ?? Attending ID: ??[id number] Requesting ID: ??[id number] Report To 1 ID: ??[id number] ? Report To 1 Name: ??, ?? Report To 1 FAX: ?? NextGen Order #: ?? Procedure Note Miscellaneous, Not In File - 08/19/2017 BASSEM NUR M.D. LEXIE CABRAL M.D. FINAL REPORT The radiology attending physician has personally reviewed this study, and has reviewed and/or edited this written report and agrees with it. ACC# Date Time Exam [id number] Aug 19, 2017 08:54:00 [id number] PET/CT Sk-Thigh EXAMINATION: TUMOR FDG-PET/CT IMAGING DATE OF STUDY: 08/19/2017 SCANNER: [facility] RADIOPHARMACEUTICAL: 14.4 mCi F-18 Fluorodeoxyglucose (FDG) i.v. 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 The patient's tacrolimus and steroid dose were decreased as a result. The study is requested for repeat staging after interval reduction of immunosuppression. Initial treatment strategy. TECHNIQUE: The patient's fasting blood glucose level, measured by glucometer before injection of FDG, was 85 mg/dL. MD-Gastroview was given orally. After intravenous administration of FDG, noncontrast CT images were obtained for attenuation correction and for fusion with emission PET images to allow for anatomical localization of PET findings. Emission PET images were then obtained. The study was interpreted on the [employer] workstation. The mean liver SUV (reported for auditor/quality purposes) is 1.6. The total scanned area was skull base to the proximal thighs. Images of the body were obtained starting 61 minutes after injection of tracer. COMPARISON: 04/05/2017 FINDINGS: There is extensive FDG-avid right cervical lymphadenopathy involving all levels that is much worse when compared to the prior study. The max SUV in the right cervical lymph nodes is 41.7 (image 69/389). There are also mildly FDG-avid left cervical lymph nodes. There are FDG-avid bilateral axillary lymph nodes, right worse than left. A right axillary node has max SUV 28.2 (previously 8). Some of the axillary lymph nodes have decreased uptake compared to the prior study but still demonstrate increased uptake on today's study. There is diffuse, hypermetabolic mediastinal and bilateral hilar lymphadenopathy. There are FDG-avid mesenteric and retroperitoneal lymph nodes. A mesenteric node in the right hemiabdomen at image 217 has max SUV 4. A retroperitoneal node at image 248 has max SUV 36.5. Additional FDG-avid lymph nodes are present posterior to the left psoas muscle, new since the prior study. There are mildly FDG-avid bilateral inguinal lymph nodes. There are FDG-avid bilateral common iliac, external iliac, and internal iliac lymph nodes. There are bilateral pulmonary nodules, many of which have increased uptake. A nodule in the right lower lobe at image 151 has max SUV 3.3 (previously 3.6). Additional, small pulmonary nodules also have increased uptake despite their small size (e.g. right middle lobe nodule at image 139). There are focal areas of increased uptake within or in the serosa of the bowel (e.g. right hemiabdomen, image 252, max SUV 18.1). There is no increased uptake within the bone marrow. Additional CT findings: Calcified right hilar lymph nodes are consistent with old granulomatous disease. Postsurgical changes of orthotopic liver transplantation. Spleen is absent. IMPRESSION: 1. Interval progression of disease with diffuse lymphadenopathy, much of which is worsened. 5PS=5. 2. Multiple bilateral FDG-avid pulmonary nodules are also concerning for disease involvement. 3. Multiple foci of increased uptake are seen within the bowel or serosa of the bowel wall, concerning for bowel involvement. Electronically signed by: Bassem Nur M.D. Requested By: ANITA GILLESPIE M.D. Dictated By: LEXIE CABRAL M.D. on Aug 19 2017 1:29P This document has been electronically signed by: BASSEM NUR M.D. on Aug 19 2017 1:29P [id number] RIOS M.D. FINAL REPORT The radiology attending physician has personally reviewed this study, and has reviewed and/or edited this written report and agrees with it. Attending: ANITA GILLESPIE Requesting: ANITA GILLESPIE Requesting Fax: Attending Fax: Attending ID: [id number] Requesting ID: [id number] Report To 1 ID: [id number] Report To 1 Name: , Report To 1 FAX: NextGen Order #: Anita Gillespie MD IMG PET PROCEDURES Final R esult documented in this encounter Visit Diagnoses Not on filedocumented in this encounter Care Teams Hydramatic Specialist Relationship Specialty Start Date End Date Kali Cruz MD [address] [facility] [address] [facility] [address] [place] [address] PCP - General 04/09/17 03/21/19 documented as of this encounter
--- OUTSIDE RECORDS SUMMARY | 2024-10-28 06:28 | XMS_ITS | Encounter Summary ---
Author Organization [facility] Healthcare Address [address] [place] [address] Care Team Providers Care Program Attendant Name Role Phone Kali Cruz MD Primary Care Provider [phone] Encounter Details Date Type Department Care Team (Latest Contact Info) Description 11/28/2017 1:33 PM CASE ADVOCATE - 12/05/2017 4:47 PM [facility] Hospital Encounter [facility] ADMIT [address] [place] [address] Anita Gillespie MD [phone] [address] Bronwyn Wilson MD [phone] [address] Discharge Disposition: Discharge to home or self care Social History Tobacco Use Types Packs/Day Years Used Date Smoking Tobacco: Never Sex and Gender Information Value Date Recorded Sex Assigned at Not on file Legal Sex Male 6:28 AM CASE ADVOCATE Gender Identity Not on file Sexual Orientation Straight 08/22/2021 9: 23 AM CDT documented as of this encounter Last Filed Vital Signs Vital Sign Reading Time Taken Comments Blood Pressure 113/68 12/05/2017 9:05 AM CASE ADVOCATE Pulse 63 12/05/2017 9:05 AM CASE ADVOCATE Temperature - - Respiratory Rate - - Oxygen Saturation 97% 12/05/2017 9:05 AM CASE ADVOCATE Inhaled Oxygen Concentration - - Weight 58 kg (127 lb 15.6 oz) 11/28/2017 3:35 PM CASE ADVOCATE Height 172.7 cm (5' 8 ) 11/28/2017 3:35 PM CASE ADVOCATE Body Mass Index 19.46 11/28/2017 3:35 PM CASE ADVOCATE documented in this encounter Medications at Time [...] Associated Diagnosis Comments CMV DNA QN, PCR After X-Ray 12/05/2017 8:57 AM CASE ADVOCATE DIFFERENTIAL AUTO After X-Ray 12/05/2017 2:5 8 AM CASE ADVOCATE CBC WITH AUTO DIFFERENTIAL After X-Ray 12/05/2017 2:58 AM CASE ADVOCATE BASIC METABOLIC PANEL After X-Ray 12/05/2017 2:58 AM CASE ADVOCATE DISCHARGE LABORATORY CUMULATIVE REPORT 12/05/2017 12:00 AM CASE ADVOCATE CBC WITH AUTO DIFFERENTIAL After X-Ray 12/04/2017 4:13 AM CASE ADVOCATE MANUAL DIFFERENTIAL After X-Ray 12/04/2017 4 :13 AM CASE ADVOCATE BASIC METABOLIC PANEL After X-Ray 12/04/2017 4:[address] SOFT TISSUE NECK W CONTRAST Routine 12/03/2017 10:50 PM CASE ADVOCATE DIFFERENTIAL AUTO STAT 12/03/2017 8:5 6 AM CASE ADVOCATE CBC WITH AUTO DIFFERENTIAL STAT 12/03/2017 8:56 AM CASE ADVOCATE VANCOMYCIN LEVEL TROUGH After X-Ray 12/03/19 18 4:58 AM CASE ADVOCATE HEPATIC FUNCTION PANEL After X-Ray 8 4:58 AM CASE ADVOCATE BASIC METABOLIC PANEL After X-Ray 12/03/2017 4:58 AM CASE ADVOCATE BLOOD CULTURE RTNm 12/02/2017 8:45 PM CASE ADVOCATE BLOOD CULTURE RTNm 12/02/2017 8:45 PM CASE ADVOCATE TOXOPLASMA ANTIBODIES IGG AND IGM Routine Gen Lab 12/02/2017 7:56 PM CASE ADVOCATE DIFFERENTIAL AUTO After X-Ray 12/02/2017 3:0 6 AM CASE ADVOCATE TACROLIMUS LEVEL, TROUGH After X-Ray 12/02/2017 3:06 AM CASE ADVOCATE CBC WITH AUTO DIFFERENTIAL After X-Ray 12/02/2017 3:06 AM CASE ADVOCATE BLASTOMYCES ANTIBODIES After X-Ray 8 3:06 AM CASE ADVOCATE VANCOMYCIN LEVEL TROUGH After X-Ray 12/02/19 18 3:06 AM CASE ADVOCATE HEPATIC FUNCTION PANEL After X-Ray 8 3:06 AM CASE ADVOCATE BASIC METABOLIC PANEL After X-Ray 12/02/2017 3:[address] CHEST W CONTRAST Routine 12/01/2017 11:16 PM CASE ADVOCATE INFLUENZA A/B PCR RTNm 12/01/2017 9:3 3 PM CASE ADVOCATE HISTOPLASMA ANTIGEN RTNm 12/01/2017 8 :07 PM CASE ADVOCATE MYCOBACTERIOLOGY AFB BLOOD CULTURE RTPa 12/01/2017 8:07 PM CASE ADVOCATE ASPERGILLUS GALACTOMANNAN ANTIGEN RTPa 12/01/2017 6:09 PM CASE ADVOCATE CRYPTOCOCCUS ANTIGEN RTPa 12/01/2017 6:08 PM CASE ADVOCATE BLOOD CULTURE RTPa 12/01/2017 11:27 AM CASE ADVOCATE BLOOD CULTURE RTPa 12/01/2017 11:27 AM CASE ADVOCATE CBC WITHOUT DIFFERENTIAL STAT 12/01/2017 11:27 AM CASE ADVOCATE MOLD BLOOD CULTURE RTPa 12/01/2017 11:27 AM CASE ADVOCATE TACROLIMUS LEVEL, TROUGH After X-Ray 12/01/2017 3:45 AM CASE ADVOCATE CBC WITH AUTO DIFFERENTIAL After X-Ray 12/01/2017 3:45 AM CASE ADVOCATE MANUAL DIFFERENTIAL After X-Ray 12/01/2017 3 :45 AM CASE ADVOCATE HEPATIC FUNCTION PANEL After X-Ray 8 3:45 AM CASE ADVOCATE BASIC METABOLIC PANEL After X-Ray 12/01/2017 3:45 AM CASE ADVOCATE VANCOMYCIN LEVEL TROUGH After X-Ray 11/30/19 18 9:21 PM CASE ADVOCATE APTT STAT 11/30/2017 8:29 AM CASE ADVOCATE PROTIME-INR STAT 11/30/2017 8:29 AM CASE ADVOCATE BLOOD CULTURE RTNm 11/30/2017 4:59 AM CASE ADVOCATE BLOOD CULTURE RTPa 11/30/2017 4:59 AM CASE ADVOCATE DIFFERENTIAL AUTO After X-Ray 11/30/2017 4:0 8 AM CASE ADVOCATE TACROLIMUS LEVEL, TROUGH After X-Ray 11/30/2017 4:08 AM CASE ADVOCATE CBC WITH AUTO DIFFERENTIAL After X-Ray 11/30/2017 4:08 AM CASE ADVOCATE HEPATITIS PANEL, ACUTE After X-Ray 8 4:08 AM CASE ADVOCATE PHOSPHORUS After X-Ray 11/30/2017 4:08 AM CASE ADVOCATE MAGNESIUM After X-Ray 11/30/2017 4:08 AM CASE ADVOCATE HEPATIC FUNCTION PANEL After X-Ray 8 4:08 AM CASE ADVOCATE HISTOPLASMA ANTIGEN RTNm 11/29/2017 9 :45 PM CASE ADVOCATE VANCOMYCIN LEVEL TROUGH After X-Ray 11/29/19 18 2:16 PM CASE ADVOCATE LACTATE, PLASMA STAT 11/29/2017 4:31 AM CASE ADVOCATE CMV DNA QN, PCR Routine Gen Lab 11/29/2017 4:06 AM CASE ADVOCATE SENIOR STAFF REVIEW After X-Ray 11/29/2017 4 :06 AM CASE ADVOCATE TACROLIMUS LEVEL, TROUGH After X-Ray 11/29/2017 4:06 AM CASE ADVOCATE CMV, IGG AND IGM ANTIBODIES After X-Ray 11/29/2017 4:06 AM CASE ADVOCATE CBC WITH AUTO DIFFERENTIAL After X-Ray 11/29/2017 4:06 AM CASE ADVOCATE HEPATITIS PANEL, ACUTE Routine Gen Lab 8 4:06 AM CASE ADVOCATE MANUAL DIFFERENTIAL After X-Ray 11/29/2017 4 :06 AM CASE ADVOCATE APTT After X-Ray 11/29/2017 4:06 AM CASE ADVOCATE PROTIME-INR After X-Ray 11/29/2017 4:06 AM CASE ADVOCATE PHOSPHORUS After X-Ray 11/29/2017 4:06 AM CASE ADVOCATE MAGNESIUM After X-Ray 11/29/2017 4:06 AM CASE ADVOCATE HEPATIC FUNCTION PANEL After X-Ray 8 4:06 AM CASE ADVOCATE BASIC METABOLIC PANEL After X-Ray 11/29/2017 4:06 AM CASE ADVOCATE VLWU DUPLEX SCAN OF AORTA; INFERIOR VENA CAVA, ILIAC, COMPLETE BILATERAL Routine 11/29/2017 3:50 AM CASE ADVOCATE US ABDOMEN LIMITED Routine 11/29/2017 3: 50 AM CASE ADVOCATE XR CHEST PA LATERAL 2 VIEWS Routine 11/28/2017 9:05 PM CASE ADVOCATE URINALYSIS Routine Gen Lab 11/28/2017 2:15 PM CASE ADVOCATE RESPIRATORY PATHOGEN PANEL RTNm 11/28/2017 2:15 PM CASE ADVOCATE INFLUENZA A/B PCR RTNm 11/28/2017 2:1 5 PM CASE ADVOCATE CBC WITH AUTO DIFFERENTIAL STAT 11/28/2017 2:15 PM CASE ADVOCATE MANUAL DIFFERENTIAL STAT 11/28/2017 2 :15 PM CASE ADVOCATE BLOOD CULTURE RTNm 11/28/2017 2:15 PM CASE ADVOCATE BLOOD CULTURE RTNm 11/28/2017 2:15 PM CASE ADVOCATE PHOSPHORUS STAT 11/28/2017 2:15 PM CASE ADVOCATE MAGNESIUM STAT 11/28/2017 2:15 PM CASE ADVOCATE LACTATE, PLASMA STAT 11/28/2017 2:15 PM CASE ADVOCATE COMPREHENSIVE METABOLIC PANEL STAT 11/28/2017 2:15 PM CASE ADVOCATE documented in this encounter Results * CMV DNA QN, PCR (12/05/2017 8:57 AM CASE ADVOCATE) Pathologist [facility] CMV DNA Not Detected [facility] Comment: Interpretive Data: The quantifiable range of this assay is 137 IUnits/mL to 9,100,000 IUnits/mL (2.14 log IUnits/mL to 6.96 log IUnits/mL). Testing was performed by the NIA AmpliPrep/NIA TaqMan CMV Test ([employer] Testing performed at [facility] Current interpretive data was last revised on 17. Blood specimen (specimen) 12/05/2017 8:57 AM CASE ADVOCATE 12/05/2017 1:18 PM CASE ADVOCATE Narrative [facility] - 12/05/2017 7:56 PM CASE ADVOCATE us Tess Jon MD LAB MICROBIOLOGY - GENERAL OR DERABLES Final Result [facility] Department [place] [address] * (ABNORMAL) Differential, auto (12/05/2017 2:58 AM CASE ADVOCATE) [facility] Neutrophil pct 6.4 % [facility] Imm gran pct 2.9 % [facility] Lymphocyte pct 63.4 % [facility] Monocyte pct 26.3 % [facility] Eosinophil pct 0.4 % [facility] Basophil pct 0.6 % [facility] Neutrophil abs 1.43(L) 1.70 - 6.50 K/cumm [facility] Imm gran abs 0.65(H) 0.00 - 0.10 K/cumm [facility] Lymphocyte abs 14.15(H) 0.80 - 3.30 K/cumm [facility] Monocyte abs 5.87(H) 0.20 - 0.80 K/cumm [facility] Eosinophil abs 0.08 0.00 - 0.50 K/cumm [facility] Basophil abs 0.13(H) 0.00 - 0.10 K/cumm [facility] Blood specimen (specimen) 12/05/2017 2:58 AM CASE ADVOCATE 12/05/2017 3:54 AM CASE ADVOCATE Narrative [facility] - 12/05/2017 4:57 AM CASE ADVOCATE Luis Miguel Leahy MD LAB BLOOD ORDERABLES Chata l Result [facility] [place] [address] * (ABNORMAL) Basic metabolic panel (12/05/2017 2:58 AM CASE ADVOCATE) Sodium 145 135 - 145 mmol/L [facility] Potassium, pl 4.0 3.3 - 4.9 mmol/L [facility] Chloride 108 97 - 110 mmol/L [facility] CO2 29 22 - 32 mmol/L [facility] BUN 4(L) 8 - 25 mg/dL [facility] Glucose 104 70 - 199 mg/dL [facility] Comment: Interpretive Data Fasting glucose [...] Current interpretive data was last revised 2017. Creatinine 0.59(L) 0.80 - 1.30 mg/dL [facility] Calcium 8.3(L) 8.5 - 10.3 mg/dL [facility] Anion gap 8 2 - 15 mmol/L [facility] Blood specimen (specimen) 12/05/2017 2:58 AM CASE ADVOCATE 12/05/2017 3:54 AM CASE ADVOCATE Narrative [facility] - 12/05/2017 4:20 AM CASE ADVOCATE Luis Miguel Leahy MD LAB BLOOD ORDERABLES Chata l Result Performing Organization Address [facility] Co de Phone Number [facility] Department [place] [address] * (ABNORMAL) CBC with auto differential (12/05/2017 2:58 AM CASE ADVOCATE) [facility] WBC 22.3(H) 3.8 - 9.9 K/cumm [facility] RBC 2.83(L) 4.30 - 5.80 M/cumm [facility] Hgb 9.1(L) 13.0 - 17.5 g/dL [facility] Hct 26.2(L) 38.9 - 50.3 % [facility] MCV 92.6 80.0 - 97.6 fL [facility] MCH 32.2 27.1 - 33.3 pg [facility] MCHC 34.7 32.3 - 35.7 g/dL [facility] RDW CV 19.7(H) 11.1 - 14.9 % [facility] RDW SD 65.6(H) 35.7 - 48.1 fL [facility] Plt 250 150 - 400 K/cumm [facility] MPV 12.3 9.1 - 12.3 fL [facility] NRBC abs 0.00 0.00 - 0.01 K/cumm [facility] Blood specimen (specimen) 12/05/2017 2:58 AM CASE ADVOCATE 12/05/2017 3:54 AM CASE ADVOCATE Narrative [facility] - 12/05/2017 4:57 AM CASE ADVOCATE Luis Miguel Lehay MD LAB BLOOD ORDERABLES Chata l Result Performing Organization Address City/[facility]/ZIP Co de Phone Number [facility] Department [place] [address] * DISCHARGE LABORATORY CUMULATIVE REPORT (12/05/2017 12:00 AM CASE ADVOCATE) Narrative 12/05/2017 12:00 AM CASE ADVOCATE Ordered by an unspecified provider. Historical Provider LAB BLOOD ORDERABLES Chata l Result * (ABNORMAL) Manual Differential (12/04/2017 4:13 AM CASE ADVOCATE) Neutrophils 25.5 % [facility] Lymphocytes 40.6 % [facility] Monos 28.3 % [facility] Eosinophils 2.8 % [facility] Metamyelocyte pct 2.8 % [facility] Platelet estimate Adequate [facility] Anisocytosis 3+(A) [facility] Macrocytes > 15/HPF(A) [facility] Target cells > 15/HPF(A) [facility] WBC counted 106 Cells [facility] RBC morphology Present(A) [facility] Neutrophil abs 3.12 1.70 - 6.50 K/cumm [facility] Lymphs, abs 4.97(H) 0.80 - 3.30 K/cumm [facility] Monos, abs 3.47(H) 0.20 - 0.80 K/cumm [facility] Eosinophils, abs 0.34 0.00 - 0.50 K/cumm [facility] Immature granulocyte, abs 0.34(H) 0.00 - 0.10 K/cumm [facility] Morphology scrn See Comment [facility] Comment:PLT: Platelet clumps present Blood specimen (specimen) 12/04/2017 4:13 AM CASE ADVOCATE 12/04/2017 5:13 AM CASE ADVOCATE Narrative [facility] - 12/04/2017 6:01 AM CASE ADVOCATE Tess Jon MD LAB BLOOD ORDERABLES Final Re sult [facility] Department [place] [address] * (ABNORMAL) Basic metabolic panel (12/04/2017 4:13 AM CASE ADVOCATE) Pathologist [facility] Sodium 144 135 - 145 mmol/L [facility] Potassium, pl 3.9 3.3 - 4.9 mmol/L [facility] Chloride 108 97 - 110 mmol/L [facility] CO2 28 22 - 32 mmol/L [facility] BUN 3(L) 8 - 25 mg/dL [facility] Glucose 95 70 - 199 mg/dL [facility] Comment: Interpretive Data Fasting glucose [...] Current interpretive data was last revised 2017. Creatinine 0.61(L) 0.80 - 1.30 mg/dL [facility] Calcium 8.2(L) 8.5 - 10.3 mg/dL [facility] Anion gap 8 2 - 15 mmol/L [facility] Blood specimen (specimen) 12/04/2017 4:13 AM CASE ADVOCATE 12/04/2017 5:09 AM CASE ADVOCATE Narrative [facility] - 12/04/2017 5:38 AM CASE ADVOCATE us Tess Jon MD LAB BLOOD ORDERABLES Final Re sult [facility] Department [place] [address] * (ABNORMAL) CBC with auto differential (12/04/2017 4:13 AM CASE ADVOCATE) [facility] WBC 12.2(H) 3.8 - 9.9 K/cumm [facility] RBC 2.71(L) 4.30 - 5.80 M/cumm [facility] Hgb 8.9(L) 13.0 - 17.5 g/dL [facility] Hct 24.3(L) 38.9 - 50.3 % [facility] MCV 89.7 80.0 - 97.6 fL [facility] MCH 32.8 27.1 - 33.3 pg [facility] MCHC 36.6(H) 32.3 - 35.7 g/dL [facility] RDW CV 19.0(H) 11.1 - 14.9 % [facility] RDW SD 61.4(H) 35.7 - 48.1 fL [facility] Plt 210 150 - 400 K/cumm [facility] MPV 12.2 9.1 - 12.3 fL [facility] NRBC abs 0.00 0.00 - 0.01 K/cumm [facility] Blood specimen (specimen) 12/04/2017 4:13 AM CASE ADVOCATE 12/04/2017 5:09 AM CASE ADVOCATE Narrative [facility] - 12/04/2017 5:42 AM CASE ADVOCATE Tess Jon MD LAB BLOOD ORDERABLES Edited R esult - Final [facility] [place] [address] * CT Neck Soft Tissue W Contrast (12/03/2017 10:50 PM CASE ADVOCATE) Anatomical Region Laterality Modality Head and Neck N/A Computed Tomogra phy 12/03/2017 10:5 0 PM CASE ADVOCATE Narrative 12/03/2017 11:22 PM CASE ADVOCATE JAZMINE GARAY M.D. KEL MCBRIDE M.D. FINAL REPORT The radiology attending physician has personally reviewed this study, and has reviewed and/or edited this written report and agrees with it. 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 TECHNIQUE: CT of the neck was performed according to standard protocol after the uneventful administration of intravenous contrast. Contrast information: 95 mL Optiray-350 COMPARISON: Comparison is made to prior neck CT dated 08/02/2017. FINDINGS: There are postsurgical changes of right neck dissection with soft tissue stranding and surgical clips at the operative site. There is a persistent right tracheoesophageal groove lymph node measuring approximately 1 cm (series 2, image 98) which is slightly smaller than on comparison study when it measured approximately 1.2 cm. Otherwise, there is no additional lymphadenopathy identified. Vessels of the neck demonstrate normal course and caliber. The visualized airway is widely patent. The base of the skull and the temporal bones are normal. Limited views of the brain including the cerebellum and brainstem are normal. The limited view of the [place] is unremarkable. The visualized portions of the orbits are normal. The spinal canal is normal in caliber. Intervertebral disk heights are normal. Neural foramina are normal. Please refer to recent CT of the chest for full evaluation of the chest. IMPRESSION: ??Postsurgical changes of right neck dissection with persistent right tracheoesophageal groove lymph node measuring approximately 1 cm which is slightly decreased compared to prior study. ??No additional lymphadenopathy is identified. Electronically signed by: Jazmine Garay M.D. Requested By: TESS JON M.D. Dictated By: ?? KEL MCBRIDE M.D. ??on Dec ??2017 ??5:16P This document has been electronically signed by: JAZMINE GARAY M.D. on Dec ??2017 ??5:19P [id number] ALVARADO M.D. FINAL REPORT The radiology attending physician has personally reviewed this study, and has reviewed and/or edited this written report and agrees with it. Attending: ??BERNADETTE, ??ANITA Requesting: ??SELF, ??TESS Requesting Fax: ?? Attending Fax: ?? Attending ID: ??[id number] Requesting ID: ??[id number] Report To 1 ID: ??[id number] ? Report To 1 Name: ??, ?? Report To 1 FAX: ?? NextGen Order #: ?? Procedure Note Miscellaneous, Not In File - 12/03/2017 Stephon ALVARADO M.D. FINAL REPORT The radiology attending physician has personally reviewed this study, and has reviewed and/or edited this written report and agrees with it. 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 TECHNIQUE: CT of the neck was performed according to standard protocol after the uneventful administration of intravenous contrast. Contrast information: 95 mL Optiray-350 COMPARISON: Comparison is made to prior neck CT dated 08/02/2017. FINDINGS: There are postsurgical changes of right neck dissection with soft tissue stranding and surgical clips at the operative site. There is a persistent right tracheoesophageal groove lymph node measuring approximately 1 cm (series 2, image 98) which is slightly smaller than on comparison study when it measured approximately 1.2 cm. Otherwise, there is no additional lymphadenopathy identified. Vessels of the neck demonstrate normal course and caliber. The visualized airway is widely patent. The base of the skull and the temporal bones are normal. Limited views of the brain including the cerebellum and brainstem are normal. The limited view of the [place] is unremarkable. The visualized portions of the orbits are normal. The spinal canal is normal in caliber. Intervertebral disk heights are normal. Neural foramina are normal. Please refer to recent CT of the chest for full evaluation of the chest. IMPRESSION: Postsurgical changes of right neck dissection with persistent right tracheoesophageal groove lymph node measuring approximately 1 cm which is slightly decreased compared to prior study. No additional lymphadenopathy is identified. Electronically signed by: Jazmine Garay M.D. Requested By: TESS JON M.D. Dictated By: KEL MCBRIDE M.D. on Dec 03 2017 5:16P This document has been electronically signed by: JAZMINE GARAY M.D. on Dec 03 2017 5:19P [id number] ALVARADO M.D. FINAL REPORT The radiology attending physician has personally reviewed this study, and has reviewed and/or edited this written report and agrees with it. Attending: ANITA GILLESPIE Requesting: TESS JON Requesting Fax: Attending Fax: Attending ID: [id number] Requesting ID: [id number] Report To 1 ID: [id number] Report To 1 Name: , Report To 1 FAX: NextGen Order #: Tess Jon MD IMG CT PROCEDURES Final Resul t * (ABNORMAL) Differential, auto (12/03/2017 8:56 AM CASE ADVOCATE) Neutrophil pct 31.9 % [facility] Comment:Confirmed by smear r eview Imm gran pct 7.2 % [facility] Lymphocyte pct 29.2 % [facility] Monocyte pct 29.6 % [facility] Eosinophil pct 1.6 % [facility] Basophil pct 0.5 % [facility] Neutrophil abs 3.65 1.70 - 6.50 K/cumm [facility] Imm gran abs 0.82(H) 0.00 - 0.10 K/cumm [facility] Lymphocyte abs 3.34(H) 0.80 - 3.30 K/cumm [facility] Monocyte abs 3.39(H) 0.20 - 0.80 K/cumm [facility] Eosinophil abs 0.18 0.00 - 0.50 K/cumm [facility] Basophil abs 0.06 0.00 - 0.10 K/cumm [facility] Blood specimen (specimen) 12/03/2017 8:56 AM CASE ADVOCATE 12/03/2017 9:50 AM CASE ADVOCATE Narrative [facility] - 12/03/2017 10:38 AM CASE ADVOCATE Tess Jon MD LAB BLOOD ORDERABLES Final Re sult [facility] Department of Laboratories [place], [place] [id number] * (ABNORMAL) CBC with auto differential (12/03/2017 8:56 AM CASE ADVOCATE) WBC 11.44(H) 3.80 - 9.90 K/cumm [facility] RBC 2.78(L) 4.30 - 5.80 M/cumm [facility] Hgb 8.9(L) 13.0 - 17.5 g/dL [facility] Hct 24.9(L) 38.9 - 50.3 % [facility] MCV 89.6 81.3 - 96.4 fL [facility] MCH 32.0 27.1 - 33.3 pg [facility] MCHC 35.7 32.3 - 35.7 g/dL [facility] RDW CV 18.9(H) 11.1 - 14.9 % [facility] RDW SD 60.3(H) 35.7 - 48.1 fL [facility] Plt 207 150 - 400 K/cumm [facility] MPV 12.2 9.1 - 12.3 fL [facility] NRBC 0.0 0.0 - 0.2 % [facility] NRBC abs 0.00 0.00 - 0.01 K/cumm [facility] Blood specimen (specimen) 12/03/2017 8:56 AM CASE ADVOCATE 12/03/2017 9:50 AM CASE ADVOCATE Narrative [facility] - 12/03/2017 10:02 AM CASE ADVOCATE us Tess Jon MD LAB BLOOD ORDERABLES Final Re sult [facility] Department [place] [address] * (ABNORMAL) Hepatic function panel (12/03/2017 4:58 AM CASE ADVOCATE) AST 30 10 - 50 Units/L [facility] ALT 52 7 - 55 Units/L [facility] Alk phos 159(H) 40 - 130 Units/L [facility] Bilirubin, total 0.2 0.1 - 1.2 mg/dL [facility] Bilirubin, direct <0.2 0.1 - 0.3 mg/dL [facility] Protein, pl 4.7(L) 6.5 - 8.5 g/dL [facility] Albumin 2.4(L) 3.5 - 5.0 g/dL [facility] Blood specimen (specimen) 12/03/2017 4:58 AM CASE ADVOCATE 12/03/2017 6:22 AM CASE ADVOCATE Narrative [facility] - 12/03/2017 7:37 AM CASE ADVOCATE Tess Jon MD LAB BLOOD ORDERABLES Final Re sult Performing Organization Address [facility] Co de Phone Number [facility] [place] [address] * Vancomycin, trough (12/03/2017 4:58 AM CASE ADVOCATE) Vancomycin trough 16.2 10.0 - 20.9 mcg/mL [facility] Blood specimen (specimen) 12/03/2017 4:58 AM CASE ADVOCATE 12/03/2017 6:22 AM CASE ADVOCATE Narrative [facility] - 12/03/2017 7:10 AM CASE ADVOCATE Tess Jon MD LAB BLOOD ORDERABLES Final Re sult Performing Organization Address [facility] de Phone Number [facility] [place] [address] * (ABNORMAL) Basic metabolic panel (12/03/2017 4:58 AM CASE ADVOCATE) Pathologist [facility] Sodium 144 135 - 145 mmol/L [facility] Potassium, pl 4.1 3.3 - 4.9 mmol/L [facility] Chloride 110 97 - 110 mmol/L [facility] CO2 26 22 - 32 mmol/L [facility] BUN 4(L) 8 - 25 mg/dL [facility] Glucose 88 70 - 199 mg/dL [facility] Comment: Interpretive Data Fasting glucose [...] Current interpretive data was last revised 2017. Creatinine 0.62(L) 0.80 - 1.30 mg/dL [facility] Calcium 8.2(L) 8.5 - 10.3 mg/dL [facility] Anion gap 8 2 - 15 mmol/L [facility] Blood specimen (specimen) 12/03/2017 4:58 AM CASE ADVOCATE 12/03/2017 6:22 AM CASE ADVOCATE Narrative [facility] - 12/03/2017 7:10 AM CASE ADVOCATE Tess Jon MD LAB BLOOD ORDERABLES Final Re sult [facility] [place] [address] * Blood culture (12/02/2017 8:45 PM CASE ADVOCATE) Report Final Report: No growth [facility] Blood specimen (specimen) (Catheter) 12/02/2017 8:45 PM CASE ADVOCATE 12/02/2017 10:04 PM CASE ADVOCATE Narrative [facility] - 12/08/2017 7:01 AM CASE ADVOCATE Blood cultures are incubated for five days on a continuously monitored blood culture system. ??The first report of a negative culture is issued within 24 hours of receipt of the specimen in the laboratory. ??Positive culture results are reported as soon as they are detected. ??For blood cultures with gram-positive cocci, a rapid molecular test for organism identification may be performed using the [employer] Nanosphere Gram Positive Blood Culture Assay. ??The Nanosphere assay detects microbial DNA in positive blood culture broth via hybridization of target DNA to capture oligonucleotides on a microarray. ??This assay has been cleared by the [place] Food and Drug Administration and its performance characteristics have been verified by the [facility] Microbiology Laboratory. Current Interpretive Data was last revised on 2014. Bijan Marte MD LAB MICROBIOLOGY - GENERA L ORDERABLES Final Result Performing Organization Address [facility] Co de Phone Number [facility] [place] [address] * Blood culture (12/02/2017 8:45 PM CASE ADVOCATE) Report Final Report: No growth [facility] Blood specimen (specimen) (Peripheral) 12/02/2017 8:45 PM CASE ADVOCATE 12/02/2017 10:04 PM CASE ADVOCATE Narrative [facility] - 12/03/2017 12:01 PM CASE ADVOCATE Blood cultures are incubated for five days on a continuously monitored blood culture system. ??The first report of a negative culture is issued within 24 hours of receipt of the specimen in the laboratory. ??Positive culture results are reported as soon as they are detected. ??For blood cultures with gram-positive cocci, a rapid molecular test for organism identification may be performed using the [employer] Nanosphere Gram Positive Blood Culture Assay. ??The Nanosphere assay detects microbial DNA in positive blood culture broth via hybridization of target DNA to capture oligonucleotides on a microarray. ??This assay has been cleared by the [place] Food and Drug Administration and its performance characteristics have been verified by the [facility] Microbiology Laboratory. Current Interpretive Data was last revised on 2014. Bijan Marte MD LAB MICROBIOLOGY - GENERA L ORDERABLES Final Result Performing Organization Address [facility] Co de Phone Number [facility] Department [place] [address] * Toxoplasma antibodies, IgG and IgM (12/02/2017 7:56 PM CASE ADVOCATE) Toxoplasma IgG Negative Negative [facility] Comment: Interpretive Data Negative - ??No detectable antibody. Equivocal - Presence of detectable antibody cannot be determined. Positive - ??Detectable level of antibody present. Current interpretive data was last revised on 2001. Toxoplasma IgM Negative Negative [facility] Blood specimen (specimen) 12/02/2017 7:56 PM CASE ADVOCATE 12/02/2017 9:20 PM CASE ADVOCATE Narrative [facility] - 12/05/2017 2:04 PM CASE ADVOCATE Tess Jon MD LAB MICROBIOLOGY - GENERAL OR DERABLES Final Result Performing Organization Address [facility] de Phone Number [facility] [place] [address] * Blastomyces antibodies (12/02/2017 3:06 AM CASE ADVOCATE) Blastomyces, Immunodiffusion Negative Negative [facility] Comment: A single negative immunodiffusion (ID) result does not exclude the diagnosis of blastomycosis. ??Repeat testing on a new sample in 7-14 days if clinically indicated. Test Performed by: [facility] [address] [place] [address] Blood specimen (specimen) 12/02/2017 3:06 AM CASE ADVOCATE 12/02/2017 8:14 AM CASE ADVOCATE Narrative [facility] - 12/04/2017 3:28 PM CASE ADVOCATE Luis Miguel Leahy MD LAB BLOOD ORDERABLES Chata l Result Performing Organization Address [facility] de Phone Number [facility] Department [place] [address] * Tacrolimus level trough (12/02/2017 3:06 AM CASE ADVOCATE) Tacrolimus, trough 4.2 ng/mL [facility] Comment: Interpretive Data The therapeutic range for tacrolimus can vary by transplant organ type and sample timing but a trough range of 5 - 15 ng/mL is typical. Testing performed by liquid chromatography-tandem mass spectrometry (LC- MS/MS).This test was developed using an analyte specific reagent. Its performance characteristics were determined by the [facility] Laboratory in a manner consistent with CLIA requirements. This test has not been cleared or approved by the U.S. Food and Drug Administration. Current interpretive data was last revised on 2016. Blood specimen (specimen) 12/02/2017 3:06 AM CASE ADVOCATE 12/02/2017 5:20 AM CASE ADVOCATE Narrative [facility] - 12/02/2017 7:23 AM CASE ADVOCATE Tess Jon MD LAB BLOOD ORDERABLES Final Re sult Performing Organization Address [facility] Co de Phone Number [facility] Department [place] [address] * (ABNORMAL) Differential, auto (12/02/2017 3:06 AM CASE ADVOCATE) Pathologist [facility] Neutrophil pct 52.7 % [facility] Comment:Confirmed by smear r eview Imm gran pct 10.0 % [facility] Lymphocyte pct 11.2 % [facility] Monocyte pct 23.7 % [facility] Eosinophil pct 1.7 % [facility] Basophil pct 0.7 % [facility] Neutrophil abs 3.15 1.70 - 6.50 K/cumm [facility] Imm gran abs 0.60(H) 0.00 - 0.10 K/cumm [facility] Lymphocyte abs 0.67(L) 0.80 - 3.30 K/cumm [facility] Monocyte abs 1.42(H) 0.20 - 0.80 K/cumm [facility] Eosinophil abs 0.10 0.00 - 0.50 K/cumm [facility] Basophil abs 0.04 0.00 - 0.10 K/cumm [facility] Blood specimen (specimen) 12/02/2017 3:06 AM CASE ADVOCATE 12/02/2017 5:23 AM CASE ADVOCATE Narrative [facility] - 12/02/2017 6:48 AM CASE ADVOCATE Tess Jon MD LAB BLOOD ORDERABLES Final Re sult Performing Organization Address City/[facility]/ZIP Co de Phone Number [facility] [place] [address] * (ABNORMAL) Hepatic function panel (12/02/2017 3:06 AM CASE ADVOCATE) Pathologist [facility] AST 31 10 - 50 Units/L [facility] ALT 55 7 - 55 Units/L [facility] Alk phos 170(H) 40 - 130 Units/L [facility] Bilirubin, total 0.2 0.1 - 1.2 mg/dL [facility] Bilirubin, direct <0.2 0.1 - 0.3 mg/dL [facility] Protein, pl 4.7(L) 6.5 - 8.5 g/dL [facility] Albumin 2.5(L) 3.5 - 5.0 g/dL [facility] Blood specimen (specimen) 12/02/2017 3:06 AM CASE ADVOCATE 12/02/2017 5:27 AM CASE ADVOCATE Narrative [facility] - 12/02/2017 6:25 AM CASE ADVOCATE Tess Jon MD LAB BLOOD ORDERABLES Final Re sult Performing Organization Address [facility] Co de Phone Number [facility] [place] [address] * Vancomycin, trough (12/02/2017 3:06 AM CASE ADVOCATE) [facility] Vancomycin trough 20.5 10.0 - 20.9 mcg/mL [facility] Blood specimen (specimen) 12/02/2017 3:06 AM CASE ADVOCATE 12/02/2017 3:06 AM CASE ADVOCATE Narrative [facility] - 12/02/2017 6:25 AM CASE ADVOCATE Tess Jon MD LAB BLOOD ORDERABLES Final Re sult [facility] [place] [address] * (ABNORMAL) Basic metabolic panel (12/02/2017 3:06 AM CASE ADVOCATE) [facility] Sodium 141 135 - 145 mmol/L [facility] Potassium, pl 3.6 3.3 - 4.9 mmol/L [facility] Chloride 110 97 - 110 mmol/L [facility] CO2 23 22 - 32 mmol/L [facility] BUN 5(L) 8 - 25 mg/dL [facility] Glucose 95 70 - 199 mg/dL [facility] Comment: Interpretive Data Fasting glucose [...] Current interpretive data was last revised 2017. Creatinine 0.68(L) 0.80 - 1.30 mg/dL [facility] Calcium 8.2(L) 8.5 - 10.3 mg/dL [facility] Anion gap 8 2 - 15 mmol/L [facility] Blood specimen (specimen) 12/02/2017 3:06 AM CASE ADVOCATE 12/02/2017 5:27 AM CASE ADVOCATE Narrative [facility] - 12/02/2017 6:11 AM CASE ADVOCATE Tess Jon MD LAB BLOOD ORDERABLES Final Re sult [facility] [place] [address] * (ABNORMAL) CBC with auto differential (12/02/2017 3:06 AM CASE ADVOCATE) [facility] WBC 5.98 3.80 - 9.90 K/cumm [facility] RBC 2.69(L) 4.30 - 5.80 M/cumm [facility] Hgb 8.7(L) 13.0 - 17.5 g/dL [facility] Hct 24.7(L) 38.9 - 50.3 % [facility] MCV 91.8 81.3 - 96.4 fL [facility] MCH 32.3 27.1 - 33.3 pg [facility] MCHC 35.2 32.3 - 35.7 g/dL [facility] RDW CV 18.9(H) 11.1 - 14.9 % [facility] RDW SD 62.7(H) 35.7 - 48.1 fL [facility] Plt 180 150 - 400 K/cumm [facility] MPV 12.0 9.1 - 12.3 fL [facility] NRBC 0.3(H) 0.0 - 0.2 % [facility] NRBC abs 0.02(H) 0.00 - 0.01 K/cumm [facility] Blood specimen (specimen) 12/02/2017 3:06 AM CASE ADVOCATE 12/02/2017 5:23 AM CASE ADVOCATE Narrative [facility] - 12/02/2017 5:38 AM CASE ADVOCATE us Tess Jon MD LAB BLOOD ORDERABLES Edited R esult - Final [facility] [place] [address] * CT Chest W Contrast (12/01/2017 11:16 PM CASE ADVOCATE) Anatomical Region Laterality Modality Body N/A Computed Tomogra phy 12/01/2017 11:1 6 PM CASE ADVOCATE Narrative 12/01/2017 11:37 PM CASE ADVOCATE GREGG KAM M.D. 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 TECHNIQUE: Computed tomographic images of the chest were obtained after administration of 95 ??mL of Optiray 350 intravenous contrast per standard protocol. COMPARISON:10/19/2017 FINDINGS: ??Right internal jugular central venous port catheter tip terminates in the right atrium. Surrounding thrombus around the catheter tip appear smaller since the prior examination. No supraclavicular or axillary lymphadenopathy. A right hilar lymph node at table position -579.8 measures 1.4 x 1.8 cm unchanged since prior examination. There is right ventricular enlargement related to prior pulmonary embolism. The right main pulmonary artery is less extensive on this non angiographic phase examination. Subsegmental pulmonary emboli are also seen in the left lower lobe. No pericardial effusion identified. Patchy areas of mosaic attenuation are best appreciated in the lower lobes. Respiratory motion obscures evaluation for small pulmonary nodules. Mild atelectasis is seen at both lung bases. No pneumothorax, pleural effusion, focal consolidation, or suspicious pulmonary nodule. Groundglass opacities at the right lower lobe have resolved. Limited views of the upper abdomen demonstrates post surgical changes of liver transplant with multiple surgical clips along the right right edge. The spleen is surgically absent. Visualized portions of the pancreas and kidneys are normal. The adrenal glands are both normal. Bone windows demonstrate no suspicious lytic or blastic lesions. IMPRESSION: ??1. Overall decrease in burden of pulmonary embolism and decreased amount of clot adjacent to the right catheter tip within the right atrium. Associated mosaic attenuation best seen at the lung bases is compatible with differential pulmonary perfusion, but unchanged. 2. No new CT findings to explain cough, neutropenia, or fevers. 3. Indeterminate, mildly enlarged right hilar lymph nodes, unchanged since PET/CT dated 10/06/2017 in which there was no increased FDG avidity. Attention on follow-up imaging is recommended. Electronically signed by: Gregg Kam M.D. Requested By: LUIS MIGUEL LEAHY M.D. Dictated By: ?? GREGG KAM M.D. ??on Dec 01 2017 ??5:35P This document has been electronically signed by: GREGG KAM M.D. on Dec 01 2017 ??5:35P [id number] KAM M.D. FINAL REPORT Attending: ??BERNADETTE, ??ANITA Requesting: ??SANJUANITA, ??LUIS MIGUEL Requesting Fax: ?? Attending Fax: ?? Attending ID: ??[id number] Requesting ID: ??[id number] Report To 1 ID: ??[id number] ? Report To 1 Name: ??, ?? Report To 1 FAX: ?? NextGen Order #: ?? Procedure Note Miscellaneous, Not In File - 12/01/2017 GREGG KAM M.D. 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 TECHNIQUE: Computed tomographic images of the chest were obtained after administration of 95 mL of Optiray 350 intravenous contrast per standard protocol. COMPARISON:10/19/2017 FINDINGS: Right internal jugular central venous port catheter tip terminates in the right atrium. Surrounding thrombus around the catheter tip appear smaller since the prior examination. No supraclavicular or axillary lymphadenopathy. A right hilar lymph node at table position -579.8 measures 1.4 x 1.8 cm unchanged since prior examination. There is right ventricular enlargement related to prior pulmonary embolism. The right main pulmonary artery is less extensive on this non angiographic phase examination. Subsegmental pulmonary emboli are also seen in the left lower lobe. No pericardial effusion identified. Patchy areas of mosaic attenuation are best appreciated in the lower lobes. Respiratory motion obscures evaluation for small pulmonary nodules. Mild atelectasis is seen at both lung bases. No pneumothorax, pleural effusion, focal consolidation, or suspicious pulmonary nodule. Groundglass opacities at the right lower lobe have resolved. Limited views of the upper abdomen demonstrates post surgical changes of liver transplant with multiple surgical clips along the right right edge. The spleen is surgically absent. Visualized portions of the pancreas and kidneys are normal. The adrenal glands are both normal. Bone windows demonstrate no suspicious lytic or blastic lesions. IMPRESSION: 1. Overall decrease in burden of pulmonary embolism and decreased amount of clot adjacent to the right catheter tip within the right atrium. Associated mosaic attenuation best seen at the lung bases is compatible with differential pulmonary perfusion, but unchanged. 2. No new CT findings to explain cough, neutropenia, or fevers. 3. Indeterminate, mildly enlarged right hilar lymph nodes, unchanged since PET/CT dated 10/06/2017 in which there was no increased FDG avidity. Attention on follow-up imaging is recommended. Electronically signed by: Gregg Kam M.D. Requested By: LUIS MIGUEL LEAHY M.D. Dictated By: GREGG KAM M.D. on Dec 01 2017 5:35P This document has been electronically signed by: GREGG KAM M.D. on Dec 01 2017 5:35P [id number] KAM M.D. FINAL REPORT Attending: ANITA GILLESPIE Requesting: LUIS MIGUEL LEAHY Requestsolange Fax: Attending Fax: Attending ID: [id number] Requesting ID: [id number] Report To 1 ID: [id number] Report To 1 Name: , Report To 1 FAX: NextGen Order #: Luis Miguel Leahy MD IMG CT PROCEDURES Final R esult * Influenza A/B PCR (12/01/2017 9:33 PM CASE ADVOCATE) Report Final Report: Flu A target RNA not detected Flu B target RNA not detected RSV target RNA not detected [facility] Nasopharyngeal 12/01/2017 9: 33 PM CASE ADVOCATE 12/01/2017 10:54 PM CASE ADVOCATE Narrative [facility] - 12/01/2017 10:54 PM CASE ADVOCATE Interpretive Data This test is performed using the [employer] Xpert Xpress Flu/RSV Assay. ??This is a multiplex, real-time reverse transcriptase PCR assay that detects influenza A, influenza B, and respiratory syncytial virus RNA. ??This assay has been cleared by the [place] Food and Drug Administration, and its performance characteristics have been verified by the [facility] Microbiology Laboratory. Current interpretive data was last revised on 2017. Luis Miguel Leahy MD LAB MICROBIOLOGY - GENERA L ORDERABLES Final Result [facility] [place] [address] * Histoplasma antigen (12/01/2017 8:07 PM CASE ADVOCATE) Report Direct Antigen Testing - Final: Negative for: Histoplasma antigen Histoplasma Antigen Result: ??None detected. * ??* ??* ??* ??* Result Interpretation: Reference interval: None Detected Results reported as ng/mL in 0.4 - 19 ng/mL Results above the limit of detection but below 0.4 ng/mL are reported as 'Positive, Below the Limit of Quantification' Results above 19 ng/mL are reported as 'Positive, Above the Limit of Quantification' * ??* ??* ??* ??* ??* ??* ??* ??* ??* ??* ??* ??* ??* ??* ??* ??* ??* ??* ??* This test was developed and its performance characteristics determined by [employer]. ??It has not been cleared or approved by the FDA; however, FDA clearance or approval is not currently required for clinical use. The results are not intended to be used as the sole means for clinical diagnosis or patient management decisions. [facility] Urine 12/01/2017 8:07 PM CASE ADVOCATE 12/01/2017 10:58 PM CASE ADVOCATE Narrative [facility] - 12/01/2017 10:58 PM CASE ADVOCATE Testing Performed by: [facility], [place] [address]. Luis Miguel Leahy MD LAB MICROBIOLOGY - GENERA L ORDERABLES Final Result Performing Organization Address [facility] Co de Phone Number [facility] [place] [address] * Mycobacteriology (AFB) blood culture (12/01/2017 8:07 PM CASE ADVOCATE) Report Final Report: No growth of acid-fast bacilli [facility] Blood specimen (specimen) 12/01/2017 8:07 PM CASE ADVOCATE 12/02/2017 12:12 AM CASE ADVOCATE Narrative [facility] 12/03/2017 8:42 AM CASE ADVOCATE Luis Miguel Leahy MD LAB MICROBIOLOGY - GENERA L ORDERABLES Final Result Performing Organization Address [facility] Co de Phone Number [facility] [place] [address] * Aspergillus galactomannan antigen (12/01/2017 6:09 PM CASE ADVOCATE) Report Direct Antigen Testing - Final: Negative for: Aspergillus Galactomannan Antigen Index: <0.500 [facility] Blood specimen (specimen) 12/01/2017 6:09 PM CASE ADVOCATE 12/01/2017 7:13 PM CASE ADVOCATE Narrative [facility] - 12/01/2017 7:13 PM CASE ADVOCATE Interpretive Data Sera with an index of less than 0.5 are considered to be negative. Sera with an index of greater than or equal to 0.5 are considered to be positive. ??Testing performed by: [facility] Dpt of Lab Med and Pathology, [address] [place] [address], ??[place] [address]. ??[employer]eder: ??Tolu Christiansen M.D. Current interpretive data was last revised on 07. Luis Miguel Leahy MD LAB MICROBIOLOGY - GENERA L ORDERABLES Final Result Performing Organization Address City/[facility] Co de Phone Number [facility] [place] [address] * Cryptococcus antigen (12/01/2017 6:08 PM CASE ADVOCATE) Report Direct Antigen Testing - Final: Negative for: Cryptococcus neoformans/ Cryptococcus gattii antigen. [facility] Blood specimen (specimen) 12/01/2017 6:08 PM CASE ADVOCATE 12/01/2017 7:13 PM CASE ADVOCATE Narrative [facility] - 12/01/2017 7:13 PM CASE ADVOCATE The cryptococcal antigen test was performed using [...] false negatives. Current interpretive data last revised 2016. Luis Miguel Leahy MD LAB MICROBIOLOGY - GENERA L ORDERABLES Final Result Performing Organization Address City/[facility]/ZIP Co de Phone Number [facility] [place] [address] * Filamentous fungus culture, blood (12/01/2017 11:27 AM CASE ADVOCATE) Report Final Report: No growth of fungus [facility] Blood specimen (specimen) 12/01/2017 11:27 AM CASE ADVOCATE 12/01/2017 12:37 PM CASE ADVOCATE Narrative [facility] - 12/02/2017 7:55 AM CASE ADVOCATE Tess Jon MD LAB MICROBIOLOGY - GENERAL OR DERABLES Final Result Performing Organization Address [facility] [place] [address] * Blood culture (12/01/2017 11:27 AM CASE ADVOCATE) Report Final Report: No growth [facility] Blood specimen (specimen) (Catheter) 12/01/2017 11:27 AM CASE ADVOCATE 12/01/2017 12:37 PM CASE ADVOCATE Narrative [facility] - 12/02/2017 7:01 AM CASE ADVOCATE Blood cultures are incubated for five days on a continuously monitored blood culture system. ??The first report of a negative culture is issued within 24 hours of receipt of the specimen in the laboratory. ??Positive culture results are reported as soon as they are detected. ??For blood cultures with gram-positive cocci, a rapid molecular test for organism identification may be performed using the [employer] Nanosphere Gram Positive Blood Culture Assay. ??The Nanosphere assay detects microbial DNA in positive blood culture broth via hybridization of target DNA to capture oligonucleotides on a microarray. ??This assay has been cleared by the [place] Food and Drug Administration and its performance characteristics have been verified by the [facility] Microbiology Laboratory. Current Interpretive Data was last revised on 2014. us Tess Jon MD LAB MICROBIOLOGY - GENERAL OR DERABLES Final Result Performing Organization Address [facility] Co de Phone Number [facility] Department [place] [address] * Blood culture (12/01/2017 11:27 AM CASE ADVOCATE) Report Final Report: No growth [facility] Blood specimen (specimen) (Peripheral) 12/01/2017 11:27 AM CASE ADVOCATE 12/01/2017 12:37 PM CASE ADVOCATE Narrative [facility] - 12/02/2017 7:01 AM CASE ADVOCATE Blood cultures are incubated for five days on a continuously monitored blood culture system. ??The first report of a negative culture is issued within 24 hours of receipt of the specimen in the laboratory. ??Positive culture results are reported as soon as they are detected. ??For blood cultures with gram-positive cocci, a rapid molecular test for organism identification may be performed using the [employer] Nanosphere Gram Positive Blood Culture Assay. ??The Nanosphere assay detects microbial DNA in positive blood culture broth via hybridization of target DNA to capture oligonucleotides on a microarray. ??This assay has been cleared by the [place] Food and Drug Administration and its performance characteristics have been verified by the [facility] Microbiology Laboratory. Current Interpretive Data was last revised on 2014. Tess Jon MD LAB MICROBIOLOGY - GENERAL OR DERABLES Final Result [facility] [place] [address] * (ABNORMAL) CBC without differential (12/01/2017 11:27 AM CASE ADVOCATE) WBC 5.85 3.80 - 9.90 K/cumm [facility] RBC 2.95(L) 4.30 - 5.80 M/cumm [facility] Hgb 9.6(L) 13.0 - 17.5 g/dL [facility] Hct 27.2(L) 38.9 - 50.3 % [facility] MCV 92.2 81.3 - 96.4 fL [facility] MCH 32.5 27.1 - 33.3 pg [facility] MCHC 35.3 32.3 - 35.7 g/dL [facility] RDW CV 18.6(H) 11.1 - 14.9 % [facility] RDW SD 62.6(H) 35.7 - 48.1 fL [facility] NRBC 1.2(H) 0.0 - 0.2 % [facility] NRBC abs 0.07(H) 0.00 - 0.01 K/cumm [facility] Plt 169 150 - 400 K/cumm [facility] MPV 12.2 9.1 - 12.3 fL [facility] Blood specimen (specimen) 12/01/2017 11:27 AM CASE ADVOCATE 12/01/2017 12:38 PM CASE ADVOCATE Narrative [facility] - 12/01/2017 12:46 PM CASE ADVOCATE us Luis Miguel Leahy MD LAB BLOOD ORDERABLES Chata l Result Performing Organization Address [facility]/ZIP Co de Phone Number [facility] Department [place] [address] * Tacrolimus level trough (12/01/2017 3:45 AM CASE ADVOCATE) [facility] Tacrolimus, trough 3.3 ng/mL [facility] Comment: Interpretive Data The therapeutic range for tacrolimus can vary by transplant organ type and sample timing but a trough range of 5 - 15 ng/mL is typical. Testing performed by liquid chromatography-tandem mass spectrometry (LC- MS/MS).This test was developed using an analyte specific reagent. Its performance characteristics were determined by the [facility] Laboratory in a manner consistent with CLIA requirements. This test has not been cleared or approved by the [place].S. Food and Drug Administration. Current interpretive data was last revised on 2016. Blood specimen (specimen) 12/01/2017 3:45 AM CASE ADVOCATE 12/01/2017 5:01 AM CASE ADVOCATE Narrative [facility] - 12/01/2017 7:22 AM CASE ADVOCATE us Tess Jon MD LAB BLOOD ORDERABLES Final Re sult [facility] Department [place] [address] * (ABNORMAL) Manual Differential (12/01/2017 3:45 AM CASE ADVOCATE) [facility] Neutrophils 51.9 % [facility] Lymphocytes 13.2 % [facility] Monos 30.2 % [facility] Eosinophils 1.0 % [facility] Myelocyte pct 0.9 % [facility] Promyelocyte pct 2.8 % [facility] Platelet estimate Adequate [facility] Anisocytosis 3+(A) [facility] Macrocytes > 15/HPF(A) [facility] WBC counted 106 Cells [facility] RBC morphology Present(A) [facility] Neutrophil abs 2.60 1.70 - 6.50 K/cumm [facility] Lymphs, abs 0.66(L) 0.80 - 3.30 K/cumm [facility] Monos, abs 1.51(H) 0.20 - 0.80 K/cumm [facility] Eosinophils, abs 0.05 0.00 - 0.50 K/cumm [facility] Immature granulocyte, abs 0.19(H) 0.00 - 0.10 K/cumm [facility] Blood specimen (specimen) 12/01/2017 3:45 AM CASE ADVOCATE 12/01/2017 5:04 AM CASE ADVOCATE Narrative [facility] - 12/01/2017 6:27 AM CASE ADVOCATE Tess Jon MD LAB BLOOD ORDERABLES Final Re sult [facility] Department [place] [address] * (ABNORMAL) Hepatic function panel (12/01/2017 3:45 AM CASE ADVOCATE) [facility] AST 24 10 - 50 Units/L [facility] ALT 63(H) 7 - 55 Units/L [facility] Alk phos 174(H) 40 - 130 Units/L [facility] Bilirubin, total 0.2 0.1 - 1.2 mg/dL [facility] Bilirubin, direct <0.2 0.1 - 0.3 mg/dL [facility] Protein, pl 4.9(L) 6.5 - 8.5 g/dL [facility] Albumin 2.7(L) 3.5 - 5.0 g/dL [facility] Blood specimen (specimen) 12/01/2017 3:45 AM CASE ADVOCATE 12/01/2017 5:00 AM CASE ADVOCATE Narrative [facility] - 12/01/2017 5:40 AM CASE ADVOCATE us Tess Jon MD LAB BLOOD ORDERABLES Final Re sult [facility] Department [place] [address] * (ABNORMAL) Basic metabolic panel (12/01/2017 3:45 AM CASE ADVOCATE) Sodium 142 135 - 145 mmol/L [facility] Potassium, pl 3.7 3.3 - 4.9 mmol/L [facility] Chloride 108 97 - 110 mmol/L [facility] CO2 26 22 - 32 mmol/L [facility] BUN 5(L) 8 - 25 mg/dL [facility] Glucose 108 70 - 199 mg/dL [facility] Comment: Interpretive Data Fasting glucose [...] Current interpretive data was last revised 2017. Creatinine 0.68(L) 0.80 - 1.30 mg/dL [facility] Calcium 7.9(L) 8.5 - 10.3 mg/dL [facility] Anion gap 8 2 - 15 mmol/L [facility] Blood specimen (specimen) 12/01/2017 3:45 AM CASE ADVOCATE 12/01/2017 5:00 AM CASE ADVOCATE Narrative [facility] - 12/01/2017 5:30 AM CASE ADVOCATE us Tess Jon MD LAB BLOOD ORDERABLES Final Re sult [facility] Department [place] [address] * (ABNORMAL) CBC with auto differential (12/01/2017 3:45 AM CASE ADVOCATE) [facility] WBC 5.01 3.80 - 9.90 K/cumm [facility] RBC 2.70(L) 4.30 - 5.80 M/cumm [facility] Hgb 8.9(L) 13.0 - 17.5 g/dL [facility] Hct 25.0(L) 38.9 - 50.3 % [facility] MCV 92.6 81.3 - 96.4 fL [facility] MCH 33.0 27.1 - 33.3 pg [facility] MCHC 35.6 32.3 - 35.7 g/dL [facility] RDW CV 18.6(H) 11.1 - 14.9 % [facility] RDW SD 62.2(H) 35.7 - 48.1 fL [facility] Plt 152 150 - 400 K/cumm [facility] Comment:Few platelet clumps seen on peripheral smear. Platelet count may be higher than reported count. MPV 12.1 9.1 - 12.3 fL [facility] NRBC 1.8(H) 0.0 - 0.2 % [facility] NRBC abs 0.09(H) 0.00 - 0.01 K/cumm [facility] Blood specimen (specimen) 12/01/2017 3:45 AM CASE ADVOCATE 12/01/2017 5:00 AM CASE ADVOCATE Narrative [facility] - 12/01/2017 5:35 AM CASE ADVOCATE us Tess Jon MD LAB BLOOD ORDERABLES Edited R esult - Final Performing Organization Address [facility] [place] [address] * (ABNORMAL) Vancomycin, trough (11/30/2017 9:21 PM CASE ADVOCATE) Vancomycin trough 9.5(L) 10.0 - 20.9 mcg/mL [facility] Blood specimen (specimen) 11/30/2017 9:21 PM CASE ADVOCATE 11/30/2017 11:43 PM CASE ADVOCATE Narrative [facility] - 12/01/2017 12:24 AM CASE ADVOCATE Tess Jon MD LAB BLOOD ORDERABLES Final Re sult Performing Organization Address [facility] [place] [address] * aPTT (11/30/2017 8:29 AM CASE ADVOCATE) Pathologist [facility] aPTT 27.6 25.0 - 37.0 sec [facility] Comment: Interpretive Data Therapeutic heparin range:60.0 - 94.0 sec based on correlation with therapeutic heparin activity range of 0.3 -0.7 Units/mL. Current interpretive data was last revised on 2011. Blood specimen (specimen) 11/30/2017 8:29 AM CASE ADVOCATE 11/30/2017 9:20 AM CASE ADVOCATE Narrative [facility] - 11/30/2017 9:46 AM CASE ADVOCATE Tess Jon MD LAB BLOOD ORDERABLES Final Re sult Performing Organization Address [facility] [place] [address] * (ABNORMAL) Protime-INR (11/30/2017 8:29 AM CASE ADVOCATE) PT 14.0(H) 8.5 - 13.0 sec [facility] INR 1.30(H) 0.80 - 1.21 [facility] Comment: Interpretive Data Inpatient therapeutic ranges* Atrial fibrillation ?2.0-3.0 INR Venous thrombo-embolism ?2.0-3.0 INR Bioprosthetic heart valve ?* Mechanical heart valve, bileaflet or tilting disk,aortic position ? 2.0-3.0 INR All other,or bileaflet or tilting disk, in mitral position ? 2.5-3.5 INR *See the pharmacy resource directory (PHRED) for an updated copy of the Tool Book at [email or web address] Current Interpretive Data was last revised 2012. Blood specimen (specimen) 11/30/2017 8:29 AM CASE ADVOCATE 11/30/2017 9:20 AM CASE ADVOCATE Narrative [facility] - 11/30/2017 9:45 AM CASE ADVOCATE us Tess Jon MD LAB BLOOD ORDERABLES Final Re sult [facility] [place] [address] * Blood culture (11/30/2017 4:59 AM CASE ADVOCATE) Report Final Report: No growth [facility] Blood specimen (specimen) (Peripheral) 11/30/2017 4:59 AM CASE ADVOCATE 11/30/2017 7:22 AM CASE ADVOCATE N[facility]ative [facility] - 12/01/2017 7:01 AM CASE ADVOCATE Blood cultures are incubated for five days on a continuously monitored blood culture system. ??The first report of a negative culture is issued within 24 hours of receipt of the specimen in the laboratory. ??Positive culture results are reported as soon as they are detected. ??For blood cultures with gram-positive cocci, a rapid molecular test for organism identification may be performed using the [employer] Gram Positive Blood Culture Assay. ??The Nanosphere assay detects microbial DNA in positive blood culture broth via hybridization of target DNA to capture oligonucleotides on a microarray. ??This assay has been cleared by the [facility] Food and Drug Administration and its performance characteristics have been verified by the [facility] Microbiology Laboratory. Current Interpretive Data was last revised on 2014. Fredi Motley MD LAB MICROBIOLOGY - G ENERAL ORDERABLES Final Result Performing Organization Address [facility] Co de Phone Number [facility] [place] [address] * Blood culture (11/30/2017 4:59 AM CASE ADVOCATE) Report Final Report: No growth [facility] Blood specimen (specimen) (Peripheral) 11/30/2017 4:59 AM CASE ADVOCATE 11/30/2017 6:58 AM CASE ADVOCATE Narrative [facility] - 12/01/2017 7:01 AM CASE ADVOCATE Blood cultures are incubated for five days on a continuously monitored blood culture system. ??The first report of a negative culture is issued within 24 hours of receipt of the specimen in the laboratory. ??Positive culture results are reported as soon as they are detected. ??For blood cultures with gram-positive cocci, a rapid molecular test for organism identification may be performed using the [employer] Gram Positive Blood Culture Assay. ??The Nanosphere assay detects microbial DNA in positive blood culture broth via hybridization of target DNA to capture oligonucleotides on a microarray. ??This assay has been cleared by the [place] Food and Drug Administration and its performance characteristics have been verified by the [facility] Microbiology Laboratory. Current Interpretive Data was last revised on 2014. Fredi Motley MD LAB MICROBIOLOGY - G ENERAL ORDERABLES Final Result Performing Organization Address City/[facility]/ZIP Co de Phone Number [facility] Department [place] [address] * Hepatitis panel, acute (11/30/2017 4:08 AM CASE ADVOCATE) [facility] Hep A IgM Nonreactive Nonreactive [facility] Comment: Interpretive Data If test is reported as GRAYZONE, new sample should be drawn in two weeks for testing. Current interpretive data was last revised on 2016. Hep B core IgM Nonreactive Nonreactive [facility] Comment: Interpretive Data If test is reported as GRAYZONE, new sample should be drawn for testing. Current interpretive data was last revised on 2016. Hep C Ab Nonreactive Nonreactive [facility] Comment: Interpretive Data Positive and greyzone results should be confirmed by a molecular method. If positive or greyzone, a second separately collected sample should be submitted for Hepatitis C Virus RNA. Detection and Quantitation by Real-Time [employer]-PCR.Current Interpretive data was last revised on 2017. HepBsAg Nonreactive Nonreactive [facility] Blood specimen (specimen) 11/30/2017 4:08 AM CASE ADVOCATE 11/30/2017 5:08 AM CASE ADVOCATE Narrative [facility] - 11/30/2017 1:03 PM CASE ADVOCATE Luis Miguel Leahy MD LAB MICROBIOLOGY - GENERA L ORDERABLES Edited Result - Final Performing Organization Address [facility]/State/ZIP Co de Phone Number [facility] [place] [address] * (ABNORMAL) Differential, auto (11/30/2017 4:08 AM CASE ADVOCATE) Pathologist [facility] Neutrophil pct 43.1 % [facility] Imm gran pct 9.6 % [facility] Lymphocyte pct 15.6 % [facility] Monocyte pct 28.7 % [facility] Eosinophil pct 1.2 % [facility] Basophil pct 1.8 % [facility] Neutrophil abs 0.72(L) 1.70 - 6.50 K/cumm [facility] Imm gran abs 0.16(H) 0.00 - 0.10 K/cumm [facility] Lymphocyte abs 0.26(L) 0.80 - 3.30 K/cumm [facility] Monocyte abs 0.48 0.20 - 0.80 K/cumm [facility] Eosinophil abs 0.02 0.00 - 0.50 K/cumm [facility] Basophil abs 0.03 0.00 - 0.10 K/cumm [facility] Blood specimen (specimen) 11/30/2017 4:08 AM CASE ADVOCATE 11/30/2017 5:10 AM CASE ADVOCATE Narrative [facility] - 11/30/2017 7:05 AM CASE ADVOCATE Tess Jon MD LAB BLOOD ORDERABLES Final Re sult Performing Organization Address [facility] Co de Phone Number [facility] [place] [address] * Tacrolimus level trough (11/30/2017 4:08 AM CASE ADVOCATE) [facility] Tacrolimus, trough 2.7 ng/mL [facility] Comment: Interpretive Data The therapeutic range for tacrolimus can vary by transplant organ type and sample timing but a trough range of 5 - 15 ng/mL is typical. Testing performed by liquid chromatography-tandem mass spectrometry (LC- MS/MS).This test was developed using an analyte specific reagent. Its performance characteristics were determined by the [facility] Laboratory in a manner consistent with CLIA requirements. This test has not been cleared or approved by the U.S. Food and Drug Administration. Current interpretive data was last revised on 2016. Blood specimen (specimen) 11/30/2017 4:08 AM CASE ADVOCATE 11/30/2017 5:10 AM CASE ADVOCATE Narrative [facility] - 11/30/2017 7:04 AM CASE ADVOCATE Tess Jon MD LAB BLOOD ORDERABLES Final Re sult Performing Organization Address [facility]/ZIP Co de Phone Number [facility] [place] [address] * (ABNORMAL) Hepatic function panel (11/30/2017 4:08 AM CASE ADVOCATE) [facility] AST 26 10 - 50 Units/L [facility] ALT 88(H) 7 - 55 Units/L [facility] Alk phos 206(H) 40 - 130 Units/L [facility] Bilirubin, total 0.2 0.1 - 1.2 mg/dL [facility] Bilirubin, direct <0.2 0.1 - 0.3 mg/dL [facility] Protein, pl 5.2(L) 6.5 - 8.5 g/dL [facility] Albumin 2.9(L) 3.5 - 5.0 g/dL [facility] Blood specimen (specimen) 11/30/2017 4:08 AM CASE ADVOCATE 11/30/2017 5:09 AM CASE ADVOCATE Narrative [facility] - 11/30/2017 5:46 AM CASE ADVOCATE Tess Jon MD LAB BLOOD ORDERABLES [place] [address] * Magnesium (11/30/2017 4:08 AM CASE ADVOCATE) [facility] Magnesium 1.8 1.4 - 2.5 mg/dL [facility] Blood specimen (specimen) 11/30/2017 4:08 AM CASE ADVOCATE 11/30/2017 5:09 AM CASE ADVOCATE Narrative [facility] - 11/30/2017 5:37 AM CASE ADVOCATE Tess Jon MD LAB BLOOD ORDERABLES [place] [address] * Phosphorus (11/30/2017 4:08 AM CASE ADVOCATE) [facility] Phosphorus, pl 3.0 2.3 - 4.5 mg/dL [facility] Blood specimen (specimen) 11/30/2017 4:08 AM CASE ADVOCATE 11/30/2017 5:09 AM CASE ADVOCATE Narrative [facility] - 11/30/2017 5:37 AM CASE ADVOCATE us Tess Jon MD LAB BLOOD ORDERABLES Final Re sult [facility] [place] [address] * (ABNORMAL) CBC with auto differential (11/30/2017 4:08 AM CASE ADVOCATE) WBC 1.67(L) 3.80 - 9.90 K/cumm [facility] RBC 3.21(L) 4.30 - 5.80 M/cumm [facility] Hgb 10.7(L) 13.0 - 17.5 g/dL [facility] Hct 29.8(L) 38.9 - 50.3 % [facility] MCV 92.8 81.3 - 96.4 fL [facility] MCH 33.3 27.1 - 33.3 pg [facility] MCHC 35.9(H) 32.3 - 35.7 g/dL [facility] RDW CV 18.0(H) 11.1 - 14.9 % [facility] RDW SD 60.6(H) 35.7 - 48.1 fL [facility] Plt 120(L) 150 - 400 K/cumm [facility] MPV 12.4(H) 9.1 - 12.3 fL [facility] NRBC 3.6(H) 0.0 - 0.2 % [facility] NRBC abs 0.06(H) 0.00 - 0.01 K/cumm [facility] Blood specimen (specimen) 11/30/2017 4:08 AM CASE ADVOCATE 11/30/2017 5:10 AM CASE ADVOCATE Narrative [facility] - 11/30/2017 7:05 AM CASE ADVOCATE us Tess Jon MD LAB BLOOD ORDERABLES Final Re sult [facility] [place] [address] * Histoplasma antigen (11/29/2017 9:45 PM CASE ADVOCATE) Report Direct Antigen Testing - Final: Negative for: Histoplasma antigen Histoplasma Antigen Result: ??None detected. * ??* ??* ??* ??* Result Interpretation: Reference interval: None Detected Results reported as ng/mL in 0.4 - 19 ng/mL Results above the limit of detection but below 0.4 ng/mL are reported as 'Positive, Below the Limit of Quantification' Results above 19 ng/mL are reported as 'Positive, Above the Limit of Quantification' * ??* ??* ??* ??* ??* ??* ??* ??* ??* ??* ??* ??* ??* ??* ??* ??* ??* ??* ??* This test was developed and its performance characteristics determined by [employer]. ??It has not been cleared or approved by the FDA; however, FDA clearance or approval is not currently required for clinical use. The results are not intended to be used as the sole means for clinical diagnosis or patient management decisions. [facility] Urine 11/29/2017 9:45 PM CASE ADVOCATE 11/29/2017 10:39 PM CASE ADVOCATE Narrative [facility] - 11/29/2017 10:39 PM CASE ADVOCATE Testing Performed by: [facility], [place] [address]. Tess Jon MD LAB MICROBIOLOGY - GENERAL OR DERABLES Final Result [facility] [place] [address] * (ABNORMAL) Vancomycin, trough (11/29/2017 2:16 PM CASE ADVOCATE) Vancomycin trough 5.0(L) 10.0 - 20.9 mcg/mL [facility] Blood specimen (specimen) 11/29/2017 2:16 PM CASE ADVOCATE 11/29/2017 4:19 PM CASE ADVOCATE Narrative [facility] - 11/29/2017 4:53 PM CASE ADVOCATE us Tess Jon MD LAB BLOOD ORDERABLES Final Re sult Performing Organization Address City/[facility]/ZIP Co de Phone Number [facility] [place] [address] * Lactate, plasma (11/29/2017 4:31 AM CASE ADVOCATE) Pathologist [facility] Lactate 1.5 0.7 - 2.2 mmol/L [facility] Blood specimen (specimen) 11/29/2017 4:31 AM CASE ADVOCATE 11/29/2017 6:09 AM CASE ADVOCATE Narrative [facility] - 11/29/2017 6:29 AM CASE ADVOCATE us Fredi Motley MD LAB BLOOD ORDERABLES Final Result Performing Organization Address [facility] Co de Phone Number [place] [address] * CMV DNA QN, PCR (11/29/2017 4:06 AM CASE ADVOCATE) Pathologist [facility] CMV DNA Detected [facility] Comment: Interpretive Data: The quantifiable range of this assay is 137 IUnits/mL to 9,100,000 IUnits/mL (2.14 log IUnits/mL to 6.96 log IUnits/mL). Testing was performed by the NIA AmpliPrep/NIA TaqMan CMV Test ([employer] Testing performed at [facility] Current interpretive data was last revised on 17. CMV DNA IU/mL <137 IUnits/mL [facility] CMV DNA log IU/mL <2.14 log IUnits/mL [facility] Blood specimen (specimen) 11/29/2017 4:06 AM CASE ADVOCATE 11/29/2017 11:36 AM CASE ADVOCATE [facility]ative [facility] - 11/29/2017 6:37 PM CASE ADVOCATE Tess Jon MD LAB MICROBIOLOGY - GENERAL OR DERABLES Final Result Performing Organization Address [facility] de Phone Number [facility] [place] [address] * Tacrolimus level trough (11/29/2017 4:06 AM CASE ADVOCATE) Tacrolimus, trough 2.0 ng/mL [facility] Comment: Interpretive Data The therapeutic range for tacrolimus can vary by transplant organ type and sample timing but a trough range of 5 - 15 ng/mL is typical. Testing performed by liquid chromatography-tandem mass spectrometry (LC- MS/MS).This test was developed using an analyte specific reagent. Its performance characteristics were determined by the [facility] in a manner consistent with CLIA requirements. This test has not been cleared or approved by the U.S. Food and Drug Administration. Current interpretive data was last revised on 2016. Blood specimen (specimen) 11/29/2017 4:06 AM CASE ADVOCATE 11/29/2017 6:27 AM CASE ADVOCATE Narrative [facility] - 11/29/2017 11:27 AM CASE ADVOCATE Tess Jon MD LAB BLOOD ORDERABLES Final Re sult Performing Organization Address [facility] de Phone Number [facility] [place] [address] * (ABNORMAL) CMV, IgG and IgM antibodies (11/29/2017 4:06 AM CASE ADVOCATE) Pathologist [facility] CMV IgG Positive(A) Negative [facility] Comment: Interpretive Data Negative - No detectable CMV IgG antibody. Equivocal- Uncertain Immune Status. ??Additional sample should be sent. Positive - Indicates presence of detectable CMV IgG antibody. Current interpretive data was last revised on 2016. CMV IgM Negative Negative [facility] Comment: Interpretive Data Negative - No detectable CMV IgM antibody. Equivocal- Uncertain Immune Status. ??Additional sample should be sent. Positive - Indicates presence of detectable CMV IgM antibody. Current interpretive data was last revised on 2016. Blood specimen (specimen) 11/29/2017 4:06 AM CASE ADVOCATE 11/29/2017 5:34 AM CASE ADVOCATE Narrative [facility] - 11/29/2017 10:32 AM CASE ADVOCATE Luis Miguel Leahy MD LAB MICROBIOLOGY - GENERA L ORDERABLES Final Result Performing Organization Address [facility]/ZIP Co de Phone Number [facility] Department [place] [address] * Hepatitis panel, acute (11/29/2017 4:06 AM CASE ADVOCATE) Hep A IgM Nonreactive Nonreactive [facility] Comment: Interpretive Data If test is reported as GRAYZONE, new sample should be drawn in two weeks for testing. Current interpretive data was last revised on 2016. Hep B core IgM Nonreactive Nonreactive [facility] Comment: Interpretive Data If test is reported as GRAYZONE, new sample should be drawn for testing. Current interpretive data was last revised on 2016. Hep C Ab Nonreactive Nonreactive [facility] Comment: Interpretive Data Positive and greyzone results should be confirmed by a molecular method. If positive or greyzone, a second separately collected sample should be submitted for Hepatitis C Virus RNA. Detection and Quantitation by Real-Time [employer] Operator-PCR.Current Interpretive data was last revised on 2017. HepBsAg Nonreactive Nonreactive [facility] Blood specimen (specimen) 11/29/2017 4:06 AM CASE ADVOCATE 11/29/2017 6:25 AM CASE ADVOCATE Narrative [facility] - 11/29/2017 9:13 AM CASE ADVOCATE Tess Jon MD LAB MICROBIOLOGY - GENERAL OR DERABLES Edited Result - Final Performing Organization Address City/[facility]/ZIP Co de Phone Number [facility] [place] [address] * (ABNORMAL) Manual Differential (11/29/2017 4:06 AM CASE ADVOCATE) Pathologist [facility] Neutrophils 18.2 % [facility] Lymphocytes 39.8 % [facility] Monos 30.7 % [facility] Eosinophils 1.1 % [facility] Basophil pct 4.5 % [facility] Metamyelocyte pct 1.1 % [facility] Myelocyte pct 2.3 % [facility] Promyelocyte pct 2.3 % [facility] Anisocytosis 3+(A) [facility] Microcytes 3-7/HPF(A ) [facility] Macrocytes 8-15/HPF( A) [facility] Target cells 8-15/HPF( A) [facility] WBC counted 88 Cells [facility] RBC morphology Present(A ) [facility] Neutrophil abs 0.23(C) 1.70 - 6.50 K/cumm [facility] Comment:BMT patient, result not critical Lymphs, abs 0.51(L) 0.80 - 3.30 K/cumm [facility] Monos, abs 0.40 0.20 - 0.80 K/cumm [facility] Eosinophils, abs 0.01 0.00 - 0.50 K/cumm [facility] Basophils, abs 0.06 0.00 - 0.10 K/cumm [facility] Immature granulocyte, abs 0.07 0.00 - 0.10 K/cumm [facility] Blood specimen (specimen) 11/29/2017 4:06 AM CASE ADVOCATE 11/29/2017 6:10 AM CASE ADVOCATE Narrative [facility] - 11/29/2017 7:38 AM CASE ADVOCATE us Tess Jon MD LAB BLOOD ORDERABLES Final Re sult [facility] [place] [address] * Senior staff review (11/29/2017 4:06 AM CASE ADVOCATE) [facility] Senior Staff Review Specimen Blood [facility] Senior Staff Review Review Done [facility] Comment:Reviewed by senior celi gutierrez.11/29/2017 08:33:55 CASE ADVOCATE by . Blood specimen (specimen) 11/29/2017 4:06 AM CASE ADVOCATE 11/29/2017 8:03 AM CASE ADVOCATE Narrative [facility] - 11/29/2017 8:33 AM CASE ADVOCATE Tess Jon MD LAB BLOOD ORDERABLES Edited R esult - Final Performing Organization Address [facility] Co de Phone Number [facility] [place] [address] * (ABNORMAL) Hepatic function panel (11/29/2017 4:06 AM CASE ADVOCATE) Pathologist [facility] AST 55(H) 10 - 50 Units/L [facility] ALT 131(H) 7 - 55 Units/L [facility] Alk phos 251(H) 40 - 130 Units/L [facility] Bilirubin, total 0.2 0.1 - 1.2 mg/dL [facility] Bilirubin, direct <0.2 0.1 - 0.3 mg/dL [facility] Protein, pl 5.6(L) 6.5 - 8.5 g/dL [facility] Albumin 3.2(L) 3.5 - 5.0 g/dL [facility] Blood specimen (specimen) 11/29/2017 4:06 AM CASE ADVOCATE 11/29/2017 6:25 AM CASE ADVOCATE Narrative [facility] - 11/29/2017 7:04 AM CASE ADVOCATE us Tess Jon MD LAB BLOOD ORDERABLES Final Re sult Performing Organization Address [facility]/ZIP Co de Phone Number [facility] [place] [address] * (ABNORMAL) Basic metabolic panel (11/29/2017 4:06 AM CASE ADVOCATE) [facility] Sodium 137 135 - 145 mmol/L [facility] Potassium, pl 4.1 3.3 - 4.9 mmol/L [facility] Chloride 103 97 - 110 mmol/L [facility] CO2 25 22 - 32 mmol/L [facility] BUN 7(L) 8 - 25 mg/dL [facility] Glucose 116 70 - 199 mg/dL [facility] Comment: Interpretive Data Fasting glucose [...] Current interpretive data was last revised 2017. Creatinine 0.66(L) 0.80 - 1.30 mg/dL [facility] Calcium 8.6 8.5 - 10.3 mg/dL [facility] Anion gap 9 2 - 15 mmol/L [facility] Blood specimen (specimen) 11/29/2017 4:06 AM CASE ADVOCATE 11/29/2017 6:25 AM CASE ADVOCATE Narrative [facility] - 11/29/2017 6:56 AM CASE ADVOCATE us Tess Jon MD LAB BLOOD ORDERABLES Final Re sult [facility] [place] [address] * Magnesium (11/29/2017 4:06 AM CASE ADVOCATE) Magnesium 1.8 1.4 - 2.5 mg/dL [facility] Blood specimen (specimen) 11/29/2017 4:06 AM CASE ADVOCATE 11/29/2017 6:25 AM CASE ADVOCATE Narrative [facility] - 11/29/2017 6:56 AM CASE ADVOCATE us Tess Aya Self MD LAB BLOOD ORDERABLES Final Re sult Performing Organization Address [facility]/ZIP Co de Phone Number [facility] [place] [address] * Phosphorus (11/29/2017 4:06 AM CASE ADVOCATE) [facility] Phosphorus, pl 3.4 2.3 - 4.5 mg/dL [facility] Blood specimen (specimen) 11/29/2017 4:06 AM CASE ADVOCATE 11/29/2017 6:25 AM CASE ADVOCATE Narrative [facility] - 11/29/2017 6:56 AM CASE ADVOCATE Tess Jon MD LAB BLOOD ORDERABLES Final Re sult Performing Organization Address [facility] de Phone Number [facility] [place] [address] * (ABNORMAL) CBC with auto differential (11/29/2017 4:06 AM CASE ADVOCATE) [facility] WBC 1.29(L) 3.80 - 9.90 K/cumm [facility] RBC 3.44(L) 4.30 - 5.80 M/cumm [facility] Hgb 11.2(L) 13.0 - 17.5 g/dL [facility] Hct 31.7(L) 38.9 - 50.3 % [facility] MCV 92.2 81.3 - 96.4 fL [facility] MCH 32.6 27.1 - 33.3 pg [facility] MCHC 35.3 32.3 - 35.7 g/dL [facility] RDW CV 17.2(H) 11.1 - 14.9 % [facility] RDW SD 58.3(H) 35.7 - 48.1 fL [facility] Plt 138(L) 150 - 400 K/cumm [facility] MPV 10.0 9.1 - 12.3 fL [facility] NRBC 3.9(H) 0.0 - 0.2 % [facility] NRBC abs 0.05(H) 0.00 - 0.01 K/cumm [facility] Blood specimen (specimen) 11/29/2017 4:06 AM CASE ADVOCATE 11/29/2017 8:03 AM CASE ADVOCATE Narrative [facility] - 11/29/2017 6:38 AM CASE ADVOCATE Tess Jon MD LAB BLOOD ORDERABLES Edited R esult - Final Performing Organization Address [facility] de Phone Number [facility] [place] [address] * aPTT (11/29/2017 4:06 AM CASE ADVOCATE) aPTT 27.1 25.0 - 37.0 sec [facility] Comment: Interpretive Data Therapeutic heparin range:60.0 - 94.0 sec based on correlation with therapeutic heparin activity range of 0.3 -0.7 Units/mL. Current interpretive data was last revised on 2011. Blood specimen (specimen) 11/29/2017 4:06 AM CASE ADVOCATE 11/29/2017 6:08 AM CASE ADVOCATE Narrative [facility] - 11/29/2017 6:30 AM CASE ADVOCATE Tess Jon MD LAB BLOOD ORDERABLES Final Re sult Performing Organization Address [facility] de Phone Number [facility] [place] [address] * (ABNORMAL) Protime-INR (11/29/2017 4:06 AM CASE ADVOCATE) PT 13.5(H) 8.5 - 13.0 sec [facility] INR 1.26(H) 0.80 - 1.21 [facility] Comment: Interpretive Data Inpatient therapeutic ranges* Atrial fibrillation ?2.0-3.0 INR Venous thrombo-embolism ?2.0-3.0 INR Bioprosthetic heart valve ?* Mechanical heart valve, bileaflet or tilting disk,aortic position ? 2.0-3.0 INR All other,or bileaflet or tilting disk, in mitral position ? 2.5-3.5 INR *See the pharmacy resource directory (PHRED) for an updated copy of the Tool Book at [email or web address] Current Interpretive Data was last revised 2012. Blood specimen (specimen) 11/29/2017 4:06 AM CASE ADVOCATE 11/29/2017 6:08 AM CASE ADVOCATE Narrative [facility] - 11/29/2017 6:30 AM [facility] us Tess Jon MD LAB BLOOD ORDERABLES Final Re sult [facility] [place] [address] * US Duplex Scan of Aorta; Inferior Vena Cava, Iliac, Complete (11/29/2017 3:50 AM CASE ADVOCATE) Anatomical Region Laterality Modality Vascular Ultrasound 11/29/2017 3:50 AM CASE ADVOCATE Narrative 11/29/2017 3:03 PM CASE ADVOCATE RUTH ANN MENESES M.D. SADE BUNCH FINAL REPORT The radiology attending physician has personally reviewed this study, and has reviewed and/or edited this written report and agrees with it. ACC# ??Date Time ??Exam [id number] Nov 28, 2017 21:50:00 [id number] Sono Abd Lmtd [id number] Nov 28, 2017 21:50:00 [id number] Abd Orgn Duplex EXAMINATION: ?? 1. LIMITED ABDOMINAL SONOGRAM 2. 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 COMPARISON: ??Chest CT dated 10/19/2017 FINDINGS: LIMITED ABDOMINAL SONOGRAM: Liver: The transplanted left hepatic lobe is hypertrophied in size. The echotexture is normal. ??The echogenicity is normal. There is no surface nodularity. No focal solid lesions are visualized. ?? Gallbladder: The gallbladder is surgically absent. Bile Duct: There is no intrahepatic bile duct dilatation. The common duct is not visualized due to overlying bowel gas. Right Kidney: There is no hydronephrosis in the visualized portions of the right kidney. Pancreas: The visualized portions of the body of the pancreas are normal. LIVER TRANSPLANT DOPPLER: Color Doppler and spectral analysis were used to evaluate the hepatic vasculature. ?? Portal veins: The main portal vein is enlarged and tortuous, consistent with transplant changes. The left branch has hepatopetal (antegrade) flow. ??No thrombosis is visualized. ?? Hepatic veins: The middle and left hepatic veins are also patent with antegrade flow. ?? Portosplenic confluence: The portosplenic confluence is patent with appropriate directional flow. Hepatic artery: The main hepatic artery as well as the left branch are patent with antegrade flow. The resistive index in the main hepatic artery measures 0.60 and in the left hepatic artery 0.52. The accelerations and acceleration times are normal in the main hepatic artery and branch arteries. IVC: The inferior vena cava at the level of the liver is patent with appropriate directional flow. IMPRESSION: ??1. Hypertrophied, transplanted left hepatic lobe. 2. Patent portal and hepatic venous systems. ??No thrombosis. 3. Patent hepatic arterial system. ??No thrombosis or stenosis. Electronically signed by: Ruth Ann Meneses M.D. Requested By: LUIS MIGUEL LEAHY M.D. Dictated By: ?? SADE BUNCH ??on Nov 29 2017 ??8:21A This document has been electronically signed by: RUTH ANN MENESES M.D. on Nov 29 2017 ??9:01A Stephon DIANA PA HO FINAL REPORT The radiology attending physician has personally reviewed this study, and has reviewed and/or edited this written report and agrees with it. Attending: ??BERNADETTE, ??ANITA Requesting: ??SANJUANITA, ??LUIS MIGUEL Requesting Fax: ?? Attending Fax: ?? Attending ID: ??[id number] Requesting ID: ??[id number] Report To 1 ID: ??[id number] ? Report To 1 Name: ??, ?? Report To 1 FAX: ?? NextGen Order #: ?? Procedure Note Miscellaneous, Not In File - 11/29/2017 RUTH ANN MENESES M.D. SADE BUNCH HO FINAL REPORT The radiology attending physician has personally reviewed this study, and has reviewed and/or edited this written report and agrees with it. ACC# Date Time Exam [id number] Nov 28, 2017 21:50:00 [id number] Sono Abd Lmtd [id number] Nov 28, 2017 21:50:00 [id number] Abd Orgn Duplex EXAMINATION: 1. LIMITED ABDOMINAL SONOGRAM 2. LIVER TRANSPLANT DOPPLER HISTORY: 22-year-old male status post liver transplant in 1998 secondary to autoimmune hepatitis with neutropenic fever. COMPARISON: Chest CT dated 10/19/2017 FINDINGS: LIMITED ABDOMINAL SONOGRAM: Liver: The transplanted left hepatic lobe is hypertrophied in size. The echotexture is normal. The echogenicity is normal. There is no surface nodularity. No focal solid lesions are visualized. Gallbladder: The gallbladder is surgically absent. Bile Duct: There is no intrahepatic bile duct dilatation. The common duct is not visualized due to overlying bowel gas. Right Kidney: There is no hydronephrosis in the visualized portions of the right kidney. Pancreas: The visualized portions of the body of the pancreas are normal. LIVER TRANSPLANT DOPPLER: Color Doppler and spectral analysis were used to evaluate the hepatic vasculature. Portal veins: The main portal vein is enlarged and tortuous, consistent with transplant changes. The left branch has hepatopetal (antegrade) flow. No thrombosis is visualized. Hepatic veins: The middle and left hepatic veins are also patent with antegrade flow. Portosplenic confluence: The portosplenic confluence is patent with appropriate directional flow. Hepatic artery: The main hepatic artery as well as the left branch are patent with antegrade flow. The resistive index in the main hepatic artery measures 0.60 and in the left hepatic artery 0.52. The accelerations and acceleration times are normal in the main hepatic artery and branch arteries. IVC: The inferior vena cava at the level of the liver is patent with appropriate directional flow. IMPRESSION: 1. Hypertrophied, transplanted left hepatic lobe. 2. Patent portal and hepatic venous systems. No thrombosis. 3. Patent hepatic arterial system. No thrombosis or stenosis. Electronically signed by: Ruth Ann Meneses M.D. Requested By: LUIS MIGUEL LEAHY M.D. Dictated By: SADE BUNCH on Nov 29 2017 8:21A This document has been electronically signed by: RUTH ANN MENESES M.D. on Nov 29 2017 9:01A Stephon DIANA PA HO FINAL REPORT The radiology attending physician has personally reviewed this study, and has reviewed and/or edited this written report and agrees with it. Attending: ANITA GILLESPIE Requesting: LUIS MIGUEL LEAHY Requesting Fax: Attending Fax: Attending ID: [id number] Requesting ID: [id number] Report To 1 ID: [id number] Report To 1 Name: , Report To 1 FAX: NextGen Order #: [id number] Luis Miguel Leahy MD CV VASCULAR PROCEDURES Fi nal Result * US Abdomen Limited (11/29/2017 3:50 AM CASE ADVOCATE) Anatomical Region Laterality Modality Abdomen N/A Ultrasound 11/29/2017 3:50 AM CASE ADVOCATE Narrative 11/29/2017 3:03 PM CASE ADVOCATE Stephon DIANA PA HO FINAL REPORT The radiology attending physician has personally reviewed this study, and has reviewed and/or edited this written report and agrees with it. ACC# ??Date Time ??Exam [id number] Nov 28, 2017 21:50:00 [id number] Sono Abd Lmtd [id number] Nov 28, 2017 21:50:00 [id number] Abd Orgn Duplex EXAMINATION: ?? 1. LIMITED ABDOMINAL SONOGRAM 2. 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 COMPARISON: ??Chest CT dated 10/19/2017 FINDINGS: LIMITED ABDOMINAL SONOGRAM: Liver: The transplanted left hepatic lobe is hypertrophied in size. The echotexture is normal. ??The echogenicity is normal. There is no surface nodularity. No focal solid lesions are visualized. ?? Gallbladder: The gallbladder is surgically absent. Bile Duct: There is no intrahepatic bile duct dilatation. The common duct is not visualized due to overlying bowel gas. Right Kidney: There is no hydronephrosis in the visualized portions of the right kidney. Pancreas: The visualized portions of the body of the pancreas are normal. LIVER TRANSPLANT DOPPLER: Color Doppler and spectral analysis were used to evaluate the hepatic vasculature. ?? Portal veins: The main portal vein is enlarged and tortuous, consistent with transplant changes. The left branch has hepatopetal (antegrade) flow. ??No thrombosis is visualized. ?? Hepatic veins: The middle and left hepatic veins are also patent with antegrade flow. ?? Portosplenic confluence: The portosplenic confluence is patent with appropriate directional flow. Hepatic artery: The main hepatic artery as well as the left branch are patent with antegrade flow. The resistive index in the main hepatic artery measures 0.60 and in the left hepatic artery 0.52. The accelerations and acceleration times are normal in the main hepatic artery and branch arteries. IVC: The inferior vena cava at the level of the liver is patent with appropriate directional flow. IMPRESSION: ??1. Hypertrophied, transplanted left hepatic lobe. 2. Patent portal and hepatic venous systems. ??No thrombosis. 3. Patent hepatic arterial system. ??No thrombosis or stenosis. Electronically signed by: Ruth Ann Meneses M.D. Requested By: LUIS MIGUEL LEAHY M.D. Dictated By: ?? SADE BUNCH ??on Nov 29 2017 ??8:21A This document has been electronically signed by: RUTH ANN MENESES M.D. on Nov 29 2017 ??9:01A [id number] DIANA PA HO FINAL REPORT The radiology attending physician has personally reviewed this study, and has reviewed and/or edited this written report and agrees with it. Attending: ??BERNADETTE, ??ANITA Requesting: ??SANJUANITA, ??LUIS MIGUEL Requesting Fax: ?? Attending Fax: ?? Attending ID: ??[id number] Requesting ID: ??[id number] Report To 1 ID: ??[id number] ? Report To 1 Name: ??, ?? Report To 1 FAX: ?? NextGen Order #: ?? Procedure Note Miscellaneous, Not In File - 11/29/2017 RUTH ANN MENESES M.D. SADE BUNCH HO FINAL REPORT The radiology attending physician has personally reviewed this study, and has reviewed and/or edited this written report and agrees with it. ACC# Date Time Exam [id number] Nov 28, 2017 21:50:00 [id number] Sono Abd Lmtd [id number] Nov 28, 2017 21:50:00 [id number] Abd Orgn Duplex EXAMINATION: 1. LIMITED ABDOMINAL SONOGRAM 2. LIVER TRANSPLANT DOPPLER HISTORY: 22-year-old male status post liver transplant in 1998 secondary to autoimmune hepatitis with neutropenic fever. COMPARISON: Chest CT dated 10/19/2017 FINDINGS: LIMITED ABDOMINAL SONOGRAM: Liver: The transplanted left hepatic lobe is hypertrophied in size. The echotexture is normal. The echogenicity is normal. There is no surface nodularity. No focal solid lesions are visualized. Gallbladder: The gallbladder is surgically absent. Bile Duct: There is no intrahepatic bile duct dilatation. The common duct is not visualized due to overlying bowel gas. Right Kidney: There is no hydronephrosis in the visualized portions of the right kidney. Pancreas: The visualized portions of the body of the pancreas are normal. LIVER TRANSPLANT DOPPLER: Color Doppler and spectral analysis were used to evaluate the hepatic vasculature. Portal veins: The main portal vein is enlarged and tortuous, consistent with transplant changes. The left branch has hepatopetal (antegrade) flow. No thrombosis is visualized. Hepatic veins: The middle and left hepatic veins are also patent with antegrade flow. Portosplenic confluence: The portosplenic confluence is patent with appropriate directional flow. Hepatic artery: The main hepatic artery as well as the left branch are patent with antegrade flow. The resistive index in the main hepatic artery measures 0.60 and in the left hepatic artery 0.52. The accelerations and acceleration times are normal in the main hepatic artery and branch arteries. IVC: The inferior vena cava at the level of the liver is patent with appropriate directional flow. IMPRESSION: 1. Hypertrophied, transplanted left hepatic lobe. 2. Patent portal and hepatic venous systems. No thrombosis. 3. Patent hepatic arterial system. No thrombosis or stenosis. Electronically signed by: Ruth Ann Meneses M.D. Requested By: LUIS MIGUEL LEAHY M.D. Dictated By: SADE BUNCH on Nov 29 2017 8:21A This document has been electronically signed by: RUTH ANN MENESES M.D. on Nov 29 2017 9:01A [id number] DIANA PA HO FINAL REPORT The radiology attending physician has personally reviewed this study, and has reviewed and/or edited this written report and agrees with it. Attending: ANITA GILLESPIE Requesting: LUIS MIGUEL LEAHY Requesting Fax: Attending Fax: Attending ID: [id number] Requesting ID: [id number] Report To 1 ID: [id number] Report To 1 Name: , Report To 1 FAX: NextGen Order #: us Luis Miguel Leahy MD IMG US PROCEDURES Final R esult * XR Chest Pa Lateral 2 Views (11/28/2017 9:05 PM CASE ADVOCATE) Anatomical Region Laterality Modality Body, Chest N/A Radiographic Shilpi ging 11/28/2017 9:05 PM CASE ADVOCATE Narrative 11/29/2017 1:24 PM CASE ADVOCATE ASA BARON M.D. FINAL REPORT ACC# ??Date Time ??Exam [id number] Nov 28, 2017 15:05:00 [id number] Chest 2vws Stnd PA/Lat EXAMINATION: ??2 view chest radiograph IMPRESSION: ??The right internal jugular port remains unchanged, distal tip at the level of superior cavoatrial junction. Lungs are well-expanded and clear, with some hyperinflation of the right lung that is similar to the examination of 10/19/2017. Noted again are multiple surgical clips in the abdomen, and right side of the neck. Overall, there has been no interval change. Electronically signed by: Asa Baron M.D. Requested By: SALVADOR LAURENNMarcoPMarco Dictated By: ?? ASA BARON M.D. ??on Nov 29 2017 ??7:22A This document has been electronically signed by: ASA BARON M.D. on Nov 29 2017 ??7:22A ASA BARON M.D. FINAL REPORT Attending: ??BERNADETTE, ??ANITA Requesting: ??LEONIDAS, ??SALVADOR Requesting Fax: ?? Attending Fax: ?? Attending ID: ??[id number] Requesting ID: ??[id number] Report To 1 ID: ??[id number] ? Report To 1 Name: ??, ?? Report To 1 FAX: ?? NextGen Order #: ?? Procedure Note Miscellaneous, Not In File - 11/29/2017 ASA BARON M.D. FINAL REPORT ACC# Date Time Exam [id number] Nov 28, 2017 15:05:00 [id number] Chest 2vws Stnd PA/Lat EXAMINATION: 2 view chest radiograph IMPRESSION: The right internal jugular port remains unchanged, distal tip at the level of superior cavoatrial junction. Lungs are well-expanded and clear, with some hyperinflation of the right lung that is similar to the examination of 10/19/2017. Noted again are multiple surgical clips in the abdomen, and right side of the neck. Overall, there has been no interval change. Electronically signed by: Asa Baron M.D. Requested By: SALVADOR LAUREN F.N.P. Dictated By: ASA BARON M.D. on Nov 29 2017 7:22A This document has been electronically signed by: ASA BARON M.D. on Nov 29 2017 7:22A ASA BARON M.D. FINAL REPORT Attending: ANITA GILLESPIE Requesting: SALVADOR LAUREN Requesting Fax: Attending Fax: Attending ID: [id number] Requesting ID: [id number] Report To 1 ID: [id number] Report To 1 Name: , Report To 1 FAX: NextGen Order #: Salvador Lauren INSPECTOR CRYSTAL IMG XR PROCEDURES Final Resu lt * Blood culture (11/28/2017 2:15 PM CASE ADVOCATE) Report Final Report: No growth [facility] Blood specimen (specimen) (Catheter) 11/28/2017 2:15 PM CASE ADVOCATE 11/28/2017 4:06 PM CASE ADVOCATE Narrative [facility] - 12/04/2017 7:01 AM CASE ADVOCATE Blood cultures are incubated for five days on a continuously monitored blood culture system. ??The first report of a negative culture is issued within 24 hours of receipt of the specimen in the laboratory. ??Positive culture results are reported as soon as they are detected. ??For blood cultures with gram-positive cocci, a rapid molecular test for organism identification may be performed using the [employer] Nanosphere Gram Positive Blood Culture Assay. ??The Nanosphere assay detects microbial DNA in positive blood culture broth via hybridization of target DNA to capture oligonucleotides on a microarray. ??This assay has been cleared by the [place] Food and Drug Administration and its performance characteristics have been verified by the [facility] Microbiology Laboratory. Current Interpretive Data was last revised on 2014. Salvador Lauren NP LAB MICROBIOLOGY - GENERAL O RDERABLES Final Result [facility] Department [place] [address] * Blood culture (11/28/2017 2:15 PM CASE ADVOCATE) Report Final Report: No growth [facility] Blood specimen (specimen) (Peripheral) 11/28/2017 2:15 PM CASE ADVOCATE 11/28/2017 4:06 PM CASE ADVOCATE Narrative [facility] - 11/29/2017 7:00 AM CASE ADVOCATE Blood cultures are incubated for five days on a continuously monitored blood culture system. ??The first report of a negative culture is issued within 24 hours of receipt of the specimen in the laboratory. ??Positive culture results are reported as soon as they are detected. ??For blood cultures with gram-positive cocci, a rapid molecular test for organism identification may be performed using the [employer] Nanosphere Gram Positive Blood Culture Assay. ??The Nanosphere assay detects microbial DNA in positive blood culture broth via hybridization of target DNA to capture oligonucleotides on a microarray. ??This assay has been cleared by the [place] Food and Drug Administration and its performance characteristics have been verified by the [facility] Microbiology Laboratory. Current Interpretive Data was last revised on 2014. us Salvador Lauren NP LAB MICROBIOLOGY - GENERAL O RDERABLES Final Result [facility] [place] [address] * (ABNORMAL) Respiratory virus detection panel (11/28/2017 2:15 PM CASE ADVOCATE) Report Final Report: Target nucleic acid DETECTED (POSITIVE) for: Rhinovirus/En terovirus (.) [facility] Organism RHINOVIRUS/EN TEROVIRUS [facility] Nasopharyngeal 11/28/2017 2: 15 PM CASE ADVOCATE 11/28/2017 3:26 PM CASE ADVOCATE Narrative [facility] - 11/28/2017 3:26 PM CASE ADVOCATE The [employer] FilmArray Respiratory Panel (RP2) assay is a multiplexed nucleic acid test capable of simultaneous qualitative detection and identification of multiple respiratory viral and bacterial nucleic acids. The following bacteria, viruses and virus subtypes can be identified using the FilmArray RP assay: Bordetella pertussis, Bordetella parapertussis, Chlamydophila pneumoniae, Mycoplasma pneumoniae, Adenovirus, Coronavirus HKU1, Coronavirus NL63, Coronavirus 229E, Coronavirus OC43, Influenza A, Influenza A subtype H1, Influenza A subtype H3, Influenza A subtype 2009 H1, Influenza B, Metapneumovirus, Parainfluenza 1, Parainfluenza 2, Parainfluenza 3, Parainfluenza 4, RSV, Rhinovirus/Enterovirus. Due to the genetic similarity between human Rhinovirus and Enterovirus, the FilmArray RP assay cannot reliably differentiate them. Coronavirus OC43 [...] organisms. ??The agent(s) detected by the FilmArray RP may not be the definite cause of disease. ??Additional testing (lab, imaging, etc) may be necessary when evaluating a patient with possible respiratory tract infection. The FilmArray RP assay is FDA cleared for INSPECTOR CRYSTAL swabs. ??Additional sample types have been validated according to CLIA regulations. The performance characteristics of this assay have been determined by [facility] Molecular Infectious Disease Laboratory. Current interpretive data was last revised on 2017. Salvador Lauren INSPECTOR CRYSTAL LAB MICROBIOLOGY - GENERAL O RDERABLES Final Result Performing Organization Address [facility] Co de Phone Number [facility] Department [place] [address] * Influenza A/B PCR (11/28/2017 2:15 PM CASE ADVOCATE) Report Final Report: Flu A target RNA not detected Flu B target RNA not detected RSV target RNA not detected [facility] Nasopharyngeal 11/28/2017 2: 15 PM CASE ADVOCATE 11/28/2017 2:51 PM CASE ADVOCATE Narrative [facility] - 11/28/2017 2:51 PM CASE ADVOCATE Interpretive Data This test is performed using the [employer] Xpert Xpress Flu/RSV Assay. ??This is a multiplex, real-time reverse transcriptase PCR assay that detects influenza A, influenza B, and respiratory syncytial virus RNA. ??This assay has been cleared by the [place] Food and Drug Administration, and its performance characteristics have been verified by the [facility] Microbiology Laboratory. Current interpretive data was last revised on 2017. Salvador Lauren NP LAB MICROBIOLOGY - GENERAL O RDERABLES Final Result Performing Organization Address [facility] Co de Phone Number [facility] Department [place] [address] * (ABNORMAL) Manual Differential (11/28/2017 2:15 PM CASE ADVOCATE) Pathologist [facility] Neutrophils 9.2 % [facility] Lymphocytes 27.7 % [facility] Monos 52.6 % [facility] Eosinophils 2.6 % [facility] Anisocytosis 3+(A) [facility] Poikilocytosis 1+(A) [facility] Macrocytes > 15/HPF(A) [facility] Target cells 3-7/HPF(A ) [facility] WBC counted 76 Cells [facility] Variant lymph pct 7.9 % [facility] RBC morphology Present(A ) [facility] Neutrophil abs 0.06(C) 1.70 - 6.50 K/cumm [facility] Comment:Critical result call ed to and read back by SHAZIA PINA RN on 11 28 2017 at 1536 to Rick Hernandez. Lymphs, abs 0.25(L) 0.80 - 3.30 K/cumm [facility] Monos, abs 0.37 0.20 - 0.80 K/cumm [facility] Eosinophils, abs 0.02 0.00 - 0.50 K/cumm [facility] Immature granulocyte, abs 0.00 0.00 - 0.10 K/cumm [facility] Blood specimen (specimen) 11/28/2017 2:15 PM CASE ADVOCATE 11/28/2017 2:48 PM CASE ADVOCATE Narrative [facility] - 11/28/2017 3:37 PM CASE ADVOCATE us Salvador Lauren NP LAB BLOOD ORDERABLES Final R esult [facility] Department [place] [address] * Lactate, plasma (11/28/2017 2:15 PM CASE ADVOCATE) [facility] Lactate 1.4 0.7 - 2.2 mmol/L [facility] Blood specimen (specimen) 11/28/2017 2:15 PM CASE ADVOCATE 11/28/2017 2:43 PM CASE ADVOCATE Narrative [facility] - 11/28/2017 3:06 PM CASE ADVOCATE us Salvador Lauren NP LAB BLOOD ORDERABLES Final R esult [facility] Department [place] [address] * (ABNORMAL) Comprehensive metabolic panel (11/28/2017 2:15 PM CASE ADVOCATE) Sodium 132(L) 135 - 145 mmol/L [facility] Potassium, pl 3.9 3.3 - 4.9 mmol/L [facility] CO2 24 22 - 32 mmol/L [facility] BUN 10 8 - 25 mg/dL [facility] Glucose 114 70 - 199 mg/dL [facility] Comment: Interpretive Data Fasting glucose [...] Current interpretive data was last revised 2017. Creatinine 0.62(L) 0.80 - 1.30 mg/dL [facility] Calcium 8.6 8.5 - 10.3 mg/dL [facility] Chloride 95(L) 97 - 110 mmol/L [facility] Albumin 3.5 3.5 - 5.0 g/dL [facility] AST 79(H) 10 - 50 Units/L [facility] ALT 146(H) 7 - 55 Units/L [facility] Alk phos 265(H) 40 - 130 Units/L [facility] Bilirubin, total 0.3 0.1 - 1.2 mg/dL [facility] Protein, pl 6.3(L) 6.5 - 8.5 g/dL [facility] Anion gap 13 2 - 15 mmol/L [facility] Blood specimen (specimen) 11/28/2017 2:15 PM CASE ADVOCATE 11/28/2017 2:39 PM CASE ADVOCATE Narrative [facility] - 11/28/2017 2:58 PM CASE ADVOCATE Salvador Lauren INSPECTOR CRYSTAL LAB BLOOD ORDERABLES Final R esult Performing Organization Address [facility] Co de Phone Number [place] [address] * Magnesium (11/28/2017 2:15 PM CASE ADVOCATE) Magnesium 1.7 1.4 - 2.5 mg/dL [facility] Blood specimen (specimen) 11/28/2017 2:15 PM CASE ADVOCATE 11/28/2017 2:39 PM CASE ADVOCATE Narrative [facility] - 11/28/2017 2:58 PM CASE ADVOCATE Salvador Lauren INSPECTOR CRYSTAL LAB BLOOD ORDERABLES Final R esult Performing Organization Address [facility] Co de Phone Number [place] [address] * Phosphorus (11/28/2017 2:15 PM CASE ADVOCATE) Phosphorus, pl 3.8 2.3 - 4.5 mg/dL [facility] Blood specimen (specimen) 11/28/2017 2:15 PM CASE ADVOCATE 11/28/2017 2:39 PM CASE ADVOCATE Narrative [facility] - 11/28/2017 2:58 PM CASE ADVOCATE Salvador Lauren INSPECTOR CRYSTAL LAB BLOOD ORDERABLES Final R esult Performing Organization Address [facility] Co de Phone Number [place] [address] * (ABNORMAL) Urinalysis (11/28/2017 2:15 PM CASE ADVOCATE) Pathologist [facility] Color, ur Yellow Yellow [facility] Clarity, ur Cloudy(A) Clear [facility] Specific gravity, ur 1.024 1.003 - 1.030 [facility] pH, ur 7.0 5.0 - 8.0 [facility] Albumin, ur Negative Trace [facility] Glucose, ur ql Negative Negative [facility] Ketones, ur Negative Negative [facility] Bilirubin, ur Negative Negative [facility] Blood, ur Negative Negative [facility] Urobilinogen, ur 4.0(A) <2.0 mg/dL [facility] Nitrites, ur Negative Negative [facility] Leukocyte esterase, ur Negative Negative [facility] Urine 11/28/2017 2:15 PM CASE ADVOCATE 11/28/2017 2:44 PM CASE ADVOCATE Narrative [facility] - 11/28/2017 2:52 PM CASE ADVOCATE us Salvador Lauren NP LAB URINE ORDERABLES Final R esult [facility] Department [place] [address] * (ABNORMAL) CBC with auto differential (11/28/2017 2:15 PM CASE ADVOCATE) [facility] WBC 0.70(C) 3.80 - 9.90 K/cumm [facility] Comment:Critical result call ed to and read back by SHAZIA PINA, RN on 11 28 2017 at 1536 to Rick Hernandez. RBC 3.47(L) 4.30 - 5.80 M/cumm [facility] Hgb 11.3(L) 13.0 - 17.5 g/dL [facility] Hct 32.2(L) 38.9 - 50.3 % [facility] MCV 92.8 81.3 - 96.4 fL [facility] MCH 32.6 27.1 - 33.3 pg [facility] MCHC 35.1 32.3 - 35.7 g/dL [facility] RDW CV 17.0(H) 11.1 - 14.9 % [facility] RDW SD 57.1(H) 35.7 - 48.1 fL [facility] Plt 60(L) 150 - 400 K/cumm [facility] MPV 13.0(H) 9.1 - 12.3 fL [facility] NRBC 0.0 0.0 - 0.2 % [facility] NRBC abs 0.00 0.00 - 0.01 K/cumm [facility] Blood specimen (specimen) 11/28/2017 2:15 PM CASE ADVOCATE 11/28/2017 2:43 PM CASE ADVOCATE Narrative [facility] - 11/28/2017 3:37 PM CASE ADVOCATE us Salvador Lauren INSPECTOR CRYSTAL LAB BLOOD ORDERABLES Final R esult [facility] [place] [address] documented in this encounter Visit Diagnoses Not on filedocumented in this encounter Care Teams Program Attendant Relationship Specialty Start Date End Date Kali Cruz MD [address] [place] [address] PCP - General 04/09/17 03/21/19 documented as of this encounter
--- OUTSIDE RECORDS SUMMARY | 2024-10-28 06:28 | XMS_ITS | Encounter Summary ---
Author Organization [facility] Healthcare Address [address] [place] [address] Care Team Providers Care Patient Support Tech Name Role Phone Kali Cruz MD Primary Care Provider [phone] Encounter Details Date Type Department Care Team (Latest Contact Info) Description 09/15/2017 6:59 AM PROFESSOR OF BIOLOGY - 09/15/2017 11:59 PM [facility] Hospital Encounter [facility] [phone] Anita Gillespie MD [address] [facility] [address] [place], [place] [id number] Discharge Disposition: Discharge to home or self care Social History Tobacco Use Types Packs/Day Years Used Date Smoking Tobacco: Never Assessed Sex and Gender Information Value Date Recorded Sex Assigned at Not on file Legal Sex Male 6:28 AM 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 Gender Identity Not on file Sexual Orientation [...] Procedure Name Priority Date/Time Associated Diagnosis Comments VENOUS ACCESS Routine 09/15/2017 3:13 PM PROFESSOR OF BIOLOGY US GUIDED VASCULAR ACCESS Routine 09/15/2017 3:13 PM PROFESSOR OF BIOLOGY PORT PLACEMENT CHEST >5 YEARS Routine 09/15/2017 3:13 PM PROFESSOR OF BIOLOGY documented in this encounter Results * Port Placement Chest > 5 Years (09/15/2017 3:13 PM PROFESSOR OF BIOLOGY) Anatomical Region Laterality Modality Chest N/A X-Ray Angiograph y 09/15/2017 3:13 PM PROFESSOR OF BIOLOGY Narrative 09/15/2017 8:13 PM PROFESSOR OF BIOLOGY HUY RUBI M.D. ASMITA RODRÍGUEZ PA-C FINAL REPORT The radiology attending physician has personally reviewed this study, and has reviewed and/or edited this written report and agrees with it. ACC# ??Date Time ??Exam [id number] Sep 15, 2017 09:13:00 85325 USguide Vasc Access R [id number] Sep 15, 2017 09:13:00 81378 Fluoro Nathan Accs R [id number] Sep 15, 2017 09:13:00 40774 Insert Chest Port >5 y/o EXAMINATION: ??PORT PLACEMENT USING ULTRASOUND GUIDANCE (STD TECHNIQUE) HISTORY: 22-year-old male with diffuse large B-cell lymphoma presenting for port placement for chemotherapy. ATTENDING PRESENCE: Huy Rubi M.D., the attending radiologist was present from the beginning to the end of the procedure. ?? SEDATION: Conscious sedation was used for the procedure. TECHNIQUE: The risks, benefits and alternatives were discussed and informed consent was obtained. ??Prior to beginning the procedure, [place] Protocol was used to confirm the patient's identity and planned procedure. ??Fluoroscopy time has been recorded in the electronic medical record. Prior to the procedure, the central veins were evaluated by ultrasound, an image recorded and placed in the patient's chart. Maximum sterile barriers including cap, mask, hand hygiene, sterile gloves, sterile gown, large sterile drape and 2% chlorhexidine for cutaneous antisepsis were used. The skin over the right internal jugular vein was sterilely prepped, draped and infiltrated with 1% buffered lidocaine. ??The vein was accessed with a 21 gauge needle using realtime ultrasound guidance. A guidewire and catheter were then passed centrally using fluoroscopic guidance. ?? The intravascular length from the access site to the right atrium was then measured. ??After infiltrating the skin in the subclavicular region with 1% buffered lidocaine, a short transverse incision was made and the pocket for the power injectable reservoir was formed by blunt dissection. The catheter was tunneled to the IJ access site, cut to the appropriate length and inserted through a peel-away sheath. ??The catheter was flushed with 100U/ml heparin and the access needle left in place. The deep tissues were approximated using 4-0 Monocryl and the incision closed using skin glue. ??The incision in the lower neck was closed in a similar fashion. ESTIMATED BLOOD LOSS: Minimal. CONDITION: Stable DISCHARGED TO: Cancer care clinic for treatment FINDINGS: Ultrasound image shows a patent vein in the lower neck. ??The final fluoroscopic image demonstrates the catheter with its tip at the at the cavoatrial junction. ??No complications are seen. IMPRESSION: ??Successful chest wall port placement. PLAN: The catheter is ready for immediate use. ??When treatment is completed, removal can be scheduled by calling [phone]. Electronically signed by: Huy Rubi M.D. Requested By: ANITA GILLESPIE M.D. Dictated By: ?? ASMITA RODRÍGUEZ PA-C ??on Sep 15 2017 12:48P This document has been electronically signed by: HUY RUBI M.D. on Sep 15 2017 ??2:11P [id number] ESCOBAR PA-C FINAL REPORT The radiology attending physician has personally reviewed this study, and has reviewed and/or edited this written report and agrees with it. Attending: ??BERNADETTE, ??ANITA Requesting: ??BERNADETTE, ??ANITA Requesting Fax: ?? Attending Fax: ?? Attending ID: ??[id number] Requesting ID: ??[id number] Report To 1 ID: ??[id number] ? Report To 1 Name: ??, ?? Report To 1 FAX: ?? NextGen Order #: ?? Procedure Note Miscellaneous, Not In File - 09/15/2017 HUY RUBI M.D. ASMITA RODRÍGUEZ PA-C FINAL REPORT The radiology attending physician has personally reviewed this study, and has reviewed and/or edited this written report and agrees with it. ACC# Date Time Exam [id number] Sep 15, 2017 09:13:00 45073 USguide Vasc Access R [id number] Sep 15, 2017 09:13:00 97543 Fluoro Nathan Accs R [id number] Sep 15, 2017 09:13:00 43855 Insert Chest Port >5 y/o EXAMINATION: PORT PLACEMENT USING ULTRASOUND GUIDANCE (STD TECHNIQUE) HISTORY: 22-year-old male with diffuse large B-cell lymphoma presenting for port placement for chemotherapy. ATTENDING PRESENCE: Huy Rubi M.D., the attending radiologist was present from the beginning to the end of the procedure. SEDATION: Conscious sedation was used for the procedure. TECHNIQUE: The risks, benefits and alternatives were discussed and informed consent was obtained. Prior to beginning the procedure, [place] Protocol was used to confirm the patient's identity and planned procedure. Fluoroscopy time has been recorded in the electronic medical record. Prior to the procedure, the central veins were evaluated by ultrasound, an image recorded and placed in the patient's chart. Maximum sterile barriers including cap, mask, hand hygiene, sterile gloves, sterile gown, large sterile drape and 2% chlorhexidine for cutaneous antisepsis were used. The skin over the right internal jugular vein was sterilely prepped, draped and infiltrated with 1% buffered lidocaine. The vein was accessed with a 21 gauge needle using realtime ultrasound guidance. A guidewire and catheter were then passed centrally using fluoroscopic guidance. The intravascular length from the access site to the right atrium was then measured. After infiltrating the skin in the subclavicular region with 1% buffered lidocaine, a short transverse incision was made and the pocket for the power injectable reservoir was formed by blunt dissection. The catheter was tunneled to the IJ access site, cut to the appropriate length and inserted through a peel-away sheath. The catheter was flushed with 100U/ml heparin and the access needle left in place. The deep tissues were approximated using 4-0 Monocryl and the incision closed using skin glue. The incision in the lower neck was closed in a similar fashion. ESTIMATED BLOOD LOSS: Minimal. CONDITION: Stable DISCHARGED TO: Cancer care clinic for treatment FINDINGS: Ultrasound image shows a patent vein in the lower neck. The final fluoroscopic image demonstrates the catheter with its tip at the at the cavoatrial junction. No complications are seen. IMPRESSION: Successful chest wall port placement. PLAN: The catheter is ready for immediate use. When treatment is completed, removal can be scheduled by calling [phone]. Electronically signed by: Huy Rubi M.D. Requested By: ANITA GILLESPIE M.D. Dictated By: ASMITA RODRÍGUEZ PA-C on Sep 15 2017 12:48P This document has been electronically signed by: HUY RUBI M.D. on Sep 15 2017 2:11P [id number] ESCOBAR PA-C FINAL REPORT The radiology attending physician has personally reviewed this study, and has reviewed and/or edited this written report and agrees with it. Attending: ANITA GILLESPIE Requesting: ANITA GILLESPIE Requesting Fax: Attending Fax: Attending ID: [id number] Requesting ID: [id number] Report To 1 ID: [id number] Report To 1 Name: , Report To 1 FAX: NextGen Order #: us Anita Gillespie MD IMG IR PROCEDURES Final Re sult * VENOUS ACCESS (09/15/2017 3:13 PM PROFESSOR OF BIOLOGY) Anatomical Region Laterality Modality N/A Radiographic Shilpi ging 09/15/2017 3:13 PM PROFESSOR OF BIOLOGY Narrative 09/15/2017 8:13 PM PROFESSOR OF BIOLOGY HUY RUBI M.D. ASMITA RODRÍGUEZ PA-C FINAL REPORT The radiology attending physician has personally reviewed this study, and has reviewed and/or edited this written report and agrees with it. ACC# ??Date Time ??Exam [id number] Sep 15, 2017 09:13:00 02358 USguide Vasc Access R [id number] Sep 15, 2017 09:13:00 61562 Fluoro Nathan Accs R [id number] Sep 15, 2017 09:13:00 [id number] Insert Chest Port >5 y/o EXAMINATION: ??PORT PLACEMENT USING ULTRASOUND GUIDANCE (STD TECHNIQUE) HISTORY: 22-year-old male with diffuse large B-cell lymphoma presenting for port placement for chemotherapy. ATTENDING PRESENCE: Huy Rubi M.D., the attending radiologist was present from the beginning to the end of the procedure. ?? SEDATION: Conscious sedation was used for the procedure. TECHNIQUE: The risks, benefits and alternatives were discussed and informed consent was obtained. ??Prior to beginning the procedure, [place] Protocol was used to confirm the patient's identity and planned procedure. ??Fluoroscopy time has been recorded in the electronic medical record. Prior to the procedure, the central veins were evaluated by ultrasound, an image recorded and placed in the patient's chart. Maximum sterile barriers including cap, mask, hand hygiene, sterile gloves, sterile gown, large sterile drape and 2% chlorhexidine for cutaneous antisepsis were used. The skin over the right internal jugular vein was sterilely prepped, draped and infiltrated with 1% buffered lidocaine. ??The vein was accessed with a 21 gauge needle using realtime ultrasound guidance. A guidewire and catheter were then passed centrally using fluoroscopic guidance. ?? The intravascular length from the access site to the right atrium was then measured. ??After infiltrating the skin in the subclavicular region with 1% buffered lidocaine, a short transverse incision was made and the pocket for the power injectable reservoir was formed by blunt dissection. The catheter was tunneled to the IJ access site, cut to the appropriate length and inserted through a peel-away sheath. ??The catheter was flushed with 100U/ml heparin and the access needle left in place. The deep tissues were approximated using 4-0 Monocryl and the incision closed using skin glue. ??The incision in the lower neck was closed in a similar fashion. ESTIMATED BLOOD LOSS: Minimal. CONDITION: Stable DISCHARGED TO: Cancer care clinic for treatment FINDINGS: Ultrasound image shows a patent vein in the lower neck. ??The final fluoroscopic image demonstrates the catheter with its tip at the at the cavoatrial junction. ??No complications are seen. IMPRESSION: ??Successful chest wall port placement. PLAN: The catheter is ready for immediate use. ??When treatment is completed, removal can be scheduled by calling [phone]. Electronically signed by: Huy Rubi M.D. Requested By: ANITA GILLESPIE M.D. Dictated By: ?? ASMITA RODRÍGUEZ PA-C ??on Sep 15 2017 12:48P This document has been electronically signed by: HUY RUBI M.D. on Sep 15 2017 ??2:11P Stephon ESCOBAR PA-C FINAL REPORT The radiology attending physician has personally reviewed this study, and has reviewed and/or edited this written report and agrees with it. Attending: ??BERNADETTE, ??ANITA Requesting: ??BERNADETTE, ??ANITA Requesting Fax: ?? Attending Fax: ?? Attending ID: ??[id number] Requesting ID: ??[id number] Report To 1 ID: ??[id number] ? Report To 1 Name: ??, ?? Report To 1 FAX: ?? NextGen Order #: ?? Procedure Note Miscellaneous, Not In File - 09/15/2017 Stephon ESCOBAR PA-C FINAL REPORT The radiology attending physician has personally reviewed this study, and has reviewed and/or edited this written report and agrees with it. ACC# Date Time Exam [id number] Sep 15, 2017 09:13:00 53215 USguide Vasc Access R [id number] Sep 15, 2017 09:13:00 07968 Fluoro Nathan Accs R [id number] Sep 15, 2017 09:13:00 92074 Insert Chest Port >5 y/o EXAMINATION: PORT PLACEMENT USING ULTRASOUND GUIDANCE (STD TECHNIQUE) HISTORY: 22-year-old male with diffuse large B-cell lymphoma presenting for port placement for chemotherapy. ATTENDING PRESENCE: Huy Rubi M.D., the attending radiologist was present from the beginning to the end of the procedure. SEDATION: Conscious sedation was used for the procedure. TECHNIQUE: The risks, benefits and alternatives were discussed and informed consent was obtained. Prior to beginning the procedure, [place] Protocol was used to confirm the patient's identity and planned procedure. Fluoroscopy time has been recorded in the electronic medical record. Prior to the procedure, the central veins were evaluated by ultrasound, an image recorded and placed in the patient's chart. Maximum sterile barriers including cap, mask, hand hygiene, sterile gloves, sterile gown, large sterile drape and 2% chlorhexidine for cutaneous antisepsis were used. The skin over the right internal jugular vein was sterilely prepped, draped and infiltrated with 1% buffered lidocaine. The vein was accessed with a 21 gauge needle using realtime ultrasound guidance. A guidewire and catheter were then passed centrally using fluoroscopic guidance. The intravascular length from the access site to the right atrium was then measured. After infiltrating the skin in the subclavicular region with 1% buffered lidocaine, a short transverse incision was made and the pocket for the power injectable reservoir was formed by blunt dissection. The catheter was tunneled to the IJ access site, cut to the appropriate length and inserted through a peel-away sheath. The catheter was flushed with 100U/ml heparin and the access needle left in place. The deep tissues were approximated using 4-0 Monocryl and the incision closed using skin glue. The incision in the lower neck was closed in a similar fashion. ESTIMATED BLOOD LOSS: Minimal. CONDITION: Stable DISCHARGED TO: Cancer care clinic for treatment FINDINGS: Ultrasound image shows a patent vein in the lower neck. The final fluoroscopic image demonstrates the catheter with its tip at the at the cavoatrial junction. No complications are seen. IMPRESSION: Successful chest wall port placement. PLAN: The catheter is ready for immediate use. When treatment is completed, removal can be scheduled by calling [phone]. Electronically signed by: Huy Rubi M.D. Requested By: ANITA GILLESPIE M.D. Dictated By: ASMITA RODRÍGUEZ PA-C on Sep 15 2017 12:48P This document has been electronically signed by: HUY RUBI M.D. on Sep 15 2017 2:11P Stephon ESCOBAR PA-C FINAL REPORT The radiology attending physician has personally reviewed this study, and has reviewed and/or edited this written report and agrees with it. Attending: ANITA GILLESPIE Requesting: ANITA GILLESPIE Requesting Fax: Attending Fax: Attending ID: [id number] Requesting ID: [id number] Report To 1 ID: [id number] Report To 1 Name: , Report To 1 FAX: NextGen Order #: us Anita Gillespie MD IMG XR PROCEDURES Final Re sult * US Guided Vascular Access (09/15/2017 3:13 PM PROFESSOR OF BIOLOGY) Anatomical Region Laterality Modality N/A Ultrasound 09/15/2017 3:13 PM PROFESSOR OF BIOLOGY Narrative 09/15/2017 8:13 PM PROFESSOR OF BIOLOGY Stephon ESCOBAR PA-C FINAL REPORT The radiology attending physician has personally reviewed this study, and has reviewed and/or edited this written report and agrees with it. ACC# ??Date Time ??Exam [id number] Sep 15, 2017 09:13:00 12437 USguide Vasc Access R [id number] Sep 15, 2017 09:13:00 47153 Fluoro Nathan Accs R [id number] Sep 15, 2017 09:13:00 40050 Insert Chest Port >5 y/o EXAMINATION: ??PORT PLACEMENT USING ULTRASOUND GUIDANCE (STD TECHNIQUE) HISTORY: 22-year-old male with diffuse large B-cell lymphoma presenting for port placement for chemotherapy. ATTENDING PRESENCE: Huy Rubi M.D., the attending radiologist was present from the beginning to the end of the procedure. ?? SEDATION: Conscious sedation was used for the procedure. TECHNIQUE: The risks, benefits and alternatives were discussed and informed consent was obtained. ??Prior to beginning the procedure, [place] Protocol was used to confirm the patient's identity and planned procedure. ??Fluoroscopy time has been recorded in the electronic medical record. Prior to the procedure, the central veins were evaluated by ultrasound, an image recorded and placed in the patient's chart. Maximum sterile barriers including cap, mask, hand hygiene, sterile gloves, sterile gown, large sterile drape and 2% chlorhexidine for cutaneous antisepsis were used. The skin over the right internal jugular vein was sterilely prepped, draped and infiltrated with 1% buffered lidocaine. ??The vein was accessed with a 21 gauge needle using realtime ultrasound guidance. A guidewire and catheter were then passed centrally using fluoroscopic guidance. ?? The intravascular length from the access site to the right atrium was then measured. ??After infiltrating the skin in the subclavicular region with 1% buffered lidocaine, a short transverse incision was made and the pocket for the power injectable reservoir was formed by blunt dissection. The catheter was tunneled to the IJ access site, cut to the appropriate length and inserted through a peel-away sheath. ??The catheter was flushed with 100U/ml heparin and the access needle left in place. The deep tissues were approximated using 4-0 Monocryl and the incision closed using skin glue. ??The incision in the lower neck was closed in a similar fashion. ESTIMATED BLOOD LOSS: Minimal. CONDITION: Stable DISCHARGED TO: Cancer care clinic for treatment FINDINGS: Ultrasound image shows a patent vein in the lower neck. ??The final fluoroscopic image demonstrates the catheter with its tip at the at the cavoatrial junction. ??No complications are seen. IMPRESSION: ??Successful chest wall port placement. PLAN: The catheter is ready for immediate use. ??When treatment is completed, removal can be scheduled by calling [phone]. Electronically signed by: Huy Rubi M.D. Requested By: ANITA GILLESPIE M.D. Dictated By: ?? ASMITA RODRÍGUEZ PA-C ??on Sep 15 2017 12:48P This document has been electronically signed by: HUY RUBI M.D. on Sep 15 2017 ??2:11P [id number] LATHAM PA-C FINAL REPORT The radiology attending physician has personally reviewed this study, and has reviewed and/or edited this written report and agrees with it. Attending: ??BERNADETTE, ??ANITA Requesting: ??BERNADETTE, ??ANITA Requesting Fax: ?? Attending Fax: ?? Attending ID: ??[id number] Requesting ID: ??[id number] Report To 1 ID: ??[id number] ? Report To 1 Name: ??, ?? Report To 1 FAX: ?? NextGen Order #: ?? Procedure Note Miscellaneous, Not In File - 09/15/2017 HUY RUBI M.D. ASMITA RODRÍGUEZ PA-C FINAL REPORT The radiology attending physician has personally reviewed this study, and has reviewed and/or edited this written report and agrees with it. ACC# Date Time Exam [id number] Sep 15, 2017 09:13:00 [id number] USguide Vasc Access R [id number] Sep 15, 2017 09:13:00 37013 Fluoro Nathan Accs R [id number] Sep 15, 2017 09:13:00 51061 Insert Chest Port >5 y/o EXAMINATION: PORT PLACEMENT USING ULTRASOUND GUIDANCE (STD TECHNIQUE) HISTORY: 22-year-old male with diffuse large B-cell lymphoma presenting for port placement for chemotherapy. ATTENDING PRESENCE: Huy Rubi M.D., the attending radiologist was present from the beginning to the end of the procedure. SEDATION: Conscious sedation was used for the procedure. TECHNIQUE: The risks, benefits and alternatives were discussed and informed consent was obtained. Prior to beginning the procedure, [place] Protocol was used to confirm the patient's identity and planned procedure. Fluoroscopy time has been recorded in the electronic medical record. Prior to the procedure, the central veins were evaluated by ultrasound, an image recorded and placed in the patient's chart. Maximum sterile barriers including cap, mask, hand hygiene, sterile gloves, sterile gown, large sterile drape and 2% chlorhexidine for cutaneous antisepsis were used. The skin over the right internal jugular vein was sterilely prepped, draped and infiltrated with 1% buffered lidocaine. The vein was accessed with a 21 gauge needle using realtime ultrasound guidance. A guidewire and catheter were then passed centrally using fluoroscopic guidance. The intravascular length from the access site to the right atrium was then measured. After infiltrating the skin in the subclavicular region with 1% buffered lidocaine, a short transverse incision was made and the pocket for the power injectable reservoir was formed by blunt dissection. The catheter was tunneled to the IJ access site, cut to the appropriate length and inserted through a peel-away sheath. The catheter was flushed with 100U/ml heparin and the access needle left in place. The deep tissues were approximated using 4-0 Monocryl and the incision closed using skin glue. The incision in the lower neck was closed in a similar fashion. ESTIMATED BLOOD LOSS: Minimal. CONDITION: Stable DISCHARGED TO: Cancer care clinic for treatment FINDINGS: Ultrasound image shows a patent vein in the lower neck. The final fluoroscopic image demonstrates the catheter with its tip at the at the cavoatrial junction. No complications are seen. IMPRESSION: Successful chest wall port placement. PLAN: The catheter is ready for immediate use. When treatment is completed, removal can be scheduled by calling [phone]. Electronically signed by: Huy Rubi M.D. Requested By: ANITA GILLESPIE M.D. Dictated By: ASMITA RODRÍGUEZ PA-C on Sep 15 2017 12:48P This document has been electronically signed by: HUY RUBI M.D. on Sep 15 2017 2:11P [id number] LATHAM PA-C FINAL REPORT The radiology attending physician has personally reviewed this study, and has reviewed and/or edited this written report and agrees with it. Attending: ANITA GILLESPIE Requesting: ANITA GILLESPIE Requesting Fax: Attending Fax: Attending ID: [id number] Requesting ID: [id number] Report To 1 ID: [id number] Report To 1 Name: , Report To 1 FAX: NextGen Order #: us Anita Gillespie MD [facility] PROCEDURES Final Re sult documented in this encounter Visit Diagnoses Not on filedocumented in this encounter Care Teams Patient Support Tech Relationship Specialty Start Date End Date Kali Cruz MD [address] [place] [address] [place] [address] PCP - General 04/09/17 03/21/19 documented as of this encounter
--- OUTSIDE RECORDS SUMMARY | 2024-10-28 06:28 | XMS_ITS | Encounter Summary ---
Author Organization [facility] Healthcare Address [address] [place] [address] Care Team Providers Care Relationship Mgr Name Role Phone Kali Cruz MD Primary Care Provider [phone] Encounter Details Date Type Department Care Team (Latest Contact Info) Description 08/02/2017 6:52 AM CDT - 08/02/2017 11:59 PM CDT Hospital Encounter [facility] [phone] Stan Valdes MD [address] [facility] [address] [place], [place] [id number] Discharge Disposition: Discharge to home or self care Social History Tobacco Use Types Packs/Day Years Used Date Smoking Tobacco: Never Assessed Sex and Gender Information Value Date Recorded Sex Assigned at Not on file Legal Sex Male 6:28 AM [employer] Gender Identity Not on file Sexual Orientation [...] Name Priority Date/Time Associated Diagnosis Comments CT SOFT TISSUE NECK W CONTRAST Routine 08/02/2017 12:33 PM CDT documented in this encounter Results * CT Neck Soft Tissue W Contrast (08/02/2017 12:33 PM CDT) Anatomical Region Laterality Modality Head and Neck N/A Computed Tomogra phy 08/02/2017 12:3 3 PM CDT Narrative 08/02/2017 12:33 PM CDT SHANELL MINOR M.D. DUKE THAKUR M.D. FINAL REPORT The radiology attending physician has personally reviewed this study, and has reviewed and/or edited this written report and agrees with it. 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 TECHNIQUE: CT of the neck was performed according to standard protocol after the uneventful administration of intravenous contrast. Contrast information: 90 mL Optiray-350 COMPARISON: Comparison is made to CT neck dated 04/03/2017. FINDINGS: Multiple pathologically enlarged, enhancing lymph nodes are again redemonstrated predominantly in the right side of the neck. ??Some of these nodes have decreased in size since prior CT dated 04/03/2017 such as a left-sided level 1B node that now measures 1 cm while previously measuring 2 cm in greatest dimension. ??However many other nodes have shown interval increase in size most notably a level 3 right sided node that measures 3.7 x 2.8 cm at table position 208.9 while previously located in group of moderately pathologically enlarged nodes. ??The muscles of the neck are normal. Cervical lymphadenopathy has encased the right internal carotid artery and has narrowed the right internal jugular vein. Fascial planes are preserved and the deep spaces of the neck are normal. The visualized airway is widely patent. The base of the skull and the temporal bones are normal. Limited views of the brain including the cerebellum and brainstem are normal. The limited view of the [place] is unremarkable. The visualized portions of the orbits are normal. The spinal canal is normal in caliber. Intervertebral disk heights are normal. Neural foramina are normal. Limited examination of the superior thorax shows no pulmonary infiltrate, suspicious nodules, or pleural effusions. IMPRESSION: ??1. ??Cervical lymphadenopathy with mixed response to treatment as evidenced by interval increase and decrease in lymph nodes . Electronically signed by: Shanell Minor M.D. Requested By: STAN VALDES ??Stephon Dictated By: ?? DUKE THAKUR M.D. ??on Aug ??2016 ??1:17P This document has been electronically signed by: SHANELL MINOR M.D. on Aug ??2016 ??1:17P [id number] KENNEDY M.D. FINAL REPORT The radiology attending physician has personally reviewed this study, and has reviewed and/or edited this written report and agrees with it. Attending: ??ARIELA, ??STAN Requesting: ??ARIELA, ??STAN Requesting Fax: ?? Attending Fax: ?? Attending ID: ??[id number] Requesting ID: ??[id number] Report To 1 ID: ??[id number] ? Report To 1 Name: ??, ?? Report To 1 FAX: ?? NextGen Order #: ?? Procedure Note Miscellaneous, Not In File / Provider, MD Dl - 08/02/2017 Stephon LAZARO M.D. FINAL REPORT The radiology attending physician has personally reviewed this study, and has reviewed and/or edited this written report and agrees with it. 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 TECHNIQUE: CT of the neck was performed according to standard protocol after the uneventful administration of intravenous contrast. Contrast information: 90 mL Optiray-350 COMPARISON: Comparison is made to CT neck dated 04/03/2017. FINDINGS: Multiple pathologically enlarged, enhancing lymph nodes are again redemonstrated predominantly in the right side of the neck. Some of these nodes have decreased in size since prior CT dated 04/03/2017 such as a left-sided level 1B node that now measures 1 cm while previously measuring 2 cm in greatest dimension. However many other nodes have shown interval increase in size most notably a level 3 right sided node that measures 3.7 x 2.8 cm at table position 208.9 while previously located in group of moderately pathologically enlarged nodes. The muscles of the neck are normal. Cervical lymphadenopathy has encased the right internal carotid artery and has narrowed the right internal jugular vein. Fascial planes are preserved and the deep spaces of the neck are normal. The visualized airway is widely patent. The base of the skull and the temporal bones are normal. Limited views of the brain including the cerebellum and brainstem are normal. The limited view of the [place] is unremarkable. The visualized portions of the orbits are normal. The spinal canal is normal in caliber. Intervertebral disk heights are normal. Neural foramina are normal. Limited examination of the superior thorax shows no pulmonary infiltrate, suspicious nodules, or pleural effusions. IMPRESSION: 1. Cervical lymphadenopathy with mixed response to treatment as evidenced by interval increase and decrease in lymph nodes . Electronically signed by: Shanell Minor M.D. Requested By: STAN VALDES M.D. Dictated By: DUKE THAKUR M.D. on Aug 02 2017 1:17P This document has been electronically signed by: SHANELL MINOR M.D. on Aug 02 2017 1:17P [id number] KENNEDY M.D. FINAL REPORT The radiology attending physician has personally reviewed this study, and has reviewed and/or edited this written report and agrees with it. Attending: STAN VALDES Requesting: STAN VALDES Requesting Fax: Attending Fax: Attending ID: [id number] Requesting ID: [id number] Report To 1 ID: [id number] Report To 1 Name: , Report To 1 FAX: NextGen Order #: Stan Valdes MD IMG CT PROCEDURES Final Result documented in this encounter Visit Diagnoses Not on filedocumented in this encounter Care Teams Relationship Mgr Relationship Specialty Start Date End Date Kali Cruz MD [address] [place] [address] PCP - General 04/09/17 03/21/19 documented as of this encounter
--- OUTSIDE RECORDS SUMMARY | 2024-10-28 06:28 | XMS_ITS | Encounter Summary ---
Author Organization [facility] Healthcare Address [address] [place] [address] Care Team Providers Care Green End Worker Name Role Phone Kali Cruz MD Primary Care Provider [phone] Encounter Details Date Type Department Care Team (Latest Contact Info) Description 05/10/2017 5:14 PM CDT - 03/30/2018 11:59 PM CDT Hospital Encounter [facility] INTERIM [phone] Regine Garcia MD [address] [facility] [address] [place], [place] [id number] Discharge Disposition: Discharge to home or self care Social History Tobacco Use Types Packs/Day Years Used Date Smoking Tobacco: Never Sex and Gender Information Value Date Recorded Sex Assigned at Not on file Legal Sex Male 6:28 AM JEWEL [employer] Gender Identity Not on file Sexual Orientation [...] Scheduled Procedures Name Priority Associated Diagnoses Date/Ti id COLONOSCOPY Encounter for screening for colorectal cancer in high risk patient Family history of rectal cancer documented as of this encounter Procedures Procedure Name Priority Date/Time Associated Diagnosis Comments LACTATE DEHYDROGENASE Routine Gen Lab 03/30/2018 8:40 AM CDT COMPREHENSIVE METABOLIC PANEL Routine Gen Lab 03/30/2018 8:40 AM CDT CBC WITH AUTO DIFFERENTIAL Routine Gen Lab 03/30/2018 8:39 AM CDT CMV DNA QN, PCR Routine Gen Lab 01/05/2018 1:02 PM JEWEL [employer]ER CBC WITH AUTO DIFFERENTIAL Routine Gen Lab 01/05/2018 9:20 AM J[employer]EL [employer]ER TACROLIMUS LEVEL, RANDOM Routine Gen Lab 01/05/2018 9:14 AM JEWEL FLAT [employer]ER LACTATE DEHYDROGENASE Routine Gen Lab 01/05/2018 9:14 AM J[employer]EL [employer]AT [employer]ER GAMMA GT Routine Gen Lab 01/05/2018 9:14 AM J[employer]EL [employer]ER COMPREHENSIVE METABOLIC PANEL Routine Gen Lab 01/05/2018 9:14 AM JEWEL [employer]AT [employer]ER MORPHOLOGY EXAM Routine Gen Lab 12/08/2017 9:13 AM JEWEL FLAT [employer]ER CBC WITH AUTO DIFFERENTIAL Routine Gen Lab 12/08/2017 9:13 AM JEWEL FLAT [employer]ER TACROLIMUS LEVEL, RANDOM Routine Gen Lab 12/08/2017 9:13 AM JEWEL FLAT [employer]ER PROTIME-INR Routine Gen Lab 12/08/2017 9:13 AM JEWEL [employer]AT [employer]ER LACTATE DEHYDROGENASE Routine Gen Lab 12/08/2017 9:13 AM JEWEL FLAT [employer]ER GAMMA GT Routine Gen Lab 12/08/2017 9:13 AM J[employer]EL FLAT [employer]ER COMPREHENSIVE METABOLIC PANEL Routine Gen Lab 12/08/2017 9:13 AM J[employer]EL FLAT [employer]ER LACTATE DEHYDROGENASE Routine Gen Lab 11/17/2017 9:39 AM J[employer]EL FLAT [employer]ER COMPREHENSIVE METABOLIC PANEL Routine Gen Lab 11/17/2017 9:39 AM JEWEL FLAT [employer]ER TACROLIMUS LEVEL, RANDOM Routine Gen Lab 11/17/2017 9:37 AM J[employer]EL FLAT [employer]ER PROTIME-INR Routine Gen Lab 11/17/2017 9:37 AM JEWEL FLAT [employer]ER GAMMA GT Routine Gen Lab 11/17/2017 9:37 AM JEWEL FLAT [employer]ER MORPHOLOGY EXAM Routine Gen Lab 11/17/2017 9:30 AM JEWEL FLAT [employer]ER CBC WITH AUTO DIFFERENTIAL Routine Gen Lab 11/17/2017 9:30 AM JEWEL FLAT [employer]ER MORPHOLOGY EXAM Routine Gen Lab 10/27/2017 9:07 AM JEWEL FLAT [employer]ER CBC WITH AUTO DIFFERENTIAL Routine Gen Lab 10/27/2017 9:07 AM JEWEL FLAT [employer]ER PROTIME-INR Routine Gen Lab 10/27/2017 9:05 AM JEWEL [employer]AT [employer]ER LACTATE DEHYDROGENASE Routine Gen Lab 10/27/2017 9:05 AM J[employer]EL FLAT [employer]ER COMPREHENSIVE METABOLIC PANEL Routine Gen Lab 10/27/2017 9:05 AM JEWEL FLAT [employer]FACER GAMMA GT Routine Gen Lab 10/27/2017 9:03 AM JEWEL FLAT [employer]ER TACROLIMUS LEVEL, RANDOM Routine Gen Lab 10/06/2017 12:00 PM J[employer]EL [employer]ER LACTATE DEHYDROGENASE Routine Gen Lab 10/06/2017 9:10 AM JEWEL FLAT [employer]ER COMPREHENSIVE METABOLIC PANEL Routine Gen Lab 10/06/2017 9:10 AM JEWEL FLAT [employer]ER PROTIME-INR Routine Gen Lab 10/06/2017 9:02 AM JEWEL FLAT [employer]ER CBC WITH AUTO DIFFERENTIAL Routine Gen Lab 10/06/2017 8:59 AM JEWEL FLAT [employer]ER MORPHOLOGY EXAM Routine Gen Lab 09/22/2017 8:46 AM JEWEL FLAT [employer]ER CBC WITH AUTO DIFFERENTIAL Routine Gen Lab 09/22/2017 8:46 AM JEWEL FLAT [employer]ER LACTATE DEHYDROGENASE Routine Gen Lab 09/15/2017 10:15 AM JEWEL FLAT [employer]ER COMPREHENSIVE METABOLIC PANEL Routine Gen Lab 09/15/2017 10:15 AM JEWEL FLAT [employer]ER CBC WITH AUTO DIFFERENTIAL Routine Gen Lab 09/15/2017 10:07 AM JEWEL FLAT SURF[employer]ER MORPHOLOGY EXAM Routine Gen Lab 09/08/2017 7:44 AM JEWEL FLAT [employer]ER CBC WITH AUTO DIFFERENTIAL Routine Gen Lab 09/08/2017 7:44 AM JEWEL FLAT [employer]ER LACTATE DEHYDROGENASE Routine Gen Lab 09/08/2017 7:39 AM JEWEL FLAT SURF[employer]ER COMPREHENSIVE METABOLIC PANEL Routine Gen Lab 09/08/2017 7:39 AM JEWEL FLAT [employer]ER LACTATE DEHYDROGENASE Routine Gen Lab 09/03/2017 8:22 AM CDT COMPREHENSIVE METABOLIC PANEL Routine Gen Lab 09/03/2017 8:22 AM CDT MORPHOLOGY EXAM Routine Gen Lab 09/03/2017 7:54 AM CDT CBC WITH AUTO DIFFERENTIAL Routine Gen Lab 09/03/2017 7:54 AM CDT LACTATE DEHYDROGENASE Routine Gen Lab 08/27/2017 8:29 AM CDT COMPREHENSIVE METABOLIC PANEL Routine Gen Lab 08/27/2017 8:29 AM CDT CBC WITH AUTO DIFFERENTIAL Routine Gen Lab 08/27/2017 8:27 AM CDT LACTATE DEHYDROGENASE Routine Gen Lab 08/25/2017 8:15 AM CDT COMPREHENSIVE METABOLIC PANEL Routine Gen Lab 08/25/2017 8:15 AM CDT CBC WITH AUTO DIFFERENTIAL Routine Gen Lab 08/25/2017 8:14 AM CDT VITAMIN D 25 HYDROXY Routine Gen Lab 08/18/2017 10:04 AM CDT URIC ACID Routine Gen Lab 08/18/2017 10:04 AM CDT LACTATE DEHYDROGENASE Routine Gen Lab 08/18/2017 10:04 AM CDT COMPREHENSIVE METABOLIC PANEL Routine Gen Lab 08/18/2017 10:04 AM CDT CBC WITH AUTO DIFFERENTIAL Routine Gen Lab 08/18/2017 9:58 AM CDT HEPATITIS C ANTIBODY Routine Gen Lab 08/18/2017 9:51 AM CDT HEPATITIS B CORE ANTIBODY, TOTAL Routine Gen Lab 08/18/2017 9:51 AM CDT HEPATITIS B SURFACE ANTIBODY (IMMUNE STATUS) Routine Gen Lab 08/18/2017 9:51 AM CDT HEPATITIS B SURFACE ANTIGEN Routine Gen Lab 08/18/2017 9:51 AM CDT CBC WITH AUTO DIFFERENTIAL Routine Gen Lab 07/22/2017 8:34 AM CDT RETICULOCYTES Routine Gen Lab 07/22/2017 8:34 AM CDT LACTATE DEHYDROGENASE Routine Gen Lab 07/22/2017 8:25 AM CDT COMPREHENSIVE METABOLIC PANEL Routine Gen Lab 07/22/2017 8:25 AM CDT CBC WITH AUTO DIFFERENTIAL Routine Gen Lab 05/11/2017 1:13 PM CDT RETICULOCYTES Routine Gen Lab 05/11/2017 1:13 PM CDT LACTATE DEHYDROGENASE Routine Gen Lab 05/11/2017 1:10 PM CDT COMPREHENSIVE METABOLIC PANEL Routine Gen Lab 05/11/2017 1:10 PM CDT DISCHARGE LABORATORY CUMULATIVE REPORT 05/10/2017 12:00 AM CDT documented in this encounter Results * (ABNORMAL) Comprehensive metabolic panel (03/30/2018 8:40 AM CDT) Sodium 144 135 - 145 mmol/L [facility] Potassium, pl 4.3 3.3 - 4.9 mmol/L [facility] CO2 27 22 - 32 mmol/L [facility] BUN 7(L) 8 - 25 mg/dL [facility] Glucose 78 70 - 199 mg/dL [facility] Comment: [...] interpretive data was last revised 2017. Creatinine 0.87 0.80 - 1.30 mg/dL [facility] Calcium 9.0 8.5 - 10.3 mg/dL [facility] Chloride 109 97 - 110 mmol/L [facility] Albumin 4.3 3.5 - 5.0 g/dL [facility] AST 52(H) 10 - 50 Units/L [facility] ALT 96(H) 7 - 55 Units/L [facility] Alk phos 275(H) 40 - 130 Units/L [facility] Bilirubin, total 0.2 0.1 - 1.2 mg/dL [facility] Protein, pl 5.9(L) 6.5 - 8.5 g/dL [facility] Anion gap 8 2 - 15 mmol/L [facility] Blood specimen (specimen) 03/30/2018 8:40 AM CDT 03/30/2018 8:48 AM CDT Narrative [facility] - 03/30/2018 9:18 AM CDT us Anita Gillespie MD LAB BLOOD ORDERABLES Final Result Performing Organization Address [facility] Co de Phone Number [facility] Department [place] [address] * Lactate dehydrogenase (LD) (03/30/2018 8:40 AM CDT) [facility] Lactate dehydrogenase (LDH) 220 100 - 250 Units/L [facility] Blood specimen (specimen) 03/30/2018 8:40 AM CDT 03/30/2018 8:48 AM CDT Narrative [facility] - 03/30/2018 9:18 AM CDT us Anita Gillespie MD LAB BLOOD ORDERABLES Final Result Performing Organization Address [facility] de Phone Number [facility] [place] [address] * (ABNORMAL) CBC with auto differential (03/30/2018 8:39 AM CDT) [facility] WBC 6.0 3.8 - 9.8 K/cumm [facility] RBC 4.57 4.50 - 5.70 M/cumm [facility] Hgb 15.6 13.8 - 17.2 g/dL [facility] Hct 45.0 40.7 - 50.3 % [facility] Mean Cellular Volume - CAM 98.5(H) 80.0 - 97.6 fL [facility] Mean Cellular Hemoglobin - CAM 34.2(H) 26.7 - 33.7 pg [facility] Mean Cellular Hemoglobin Concentration - CAM 34.7 32.7 - 35.5 g/dL [facility] Rdw 13.4 11.8 - 14.6 % [facility] Plt 409 140 - 440 K/cumm [facility] Mean Platelet Volume - CAM 7.5 6.8 - 10.4 fL [facility] Neutrophil pct 37.2(L) 38.7 - 74.5 % [facility] Lymphocyte pct 33.0 20.0 - 54.3 % [facility] Monos 27.5(H) 4.3 - 13.5 % [facility] Eosinophil pct 1.9 0.0 - 6.0 % [facility] Basophil pct 0.4 0.0 - 3.0 % [facility] Neutrophil abs 2.2 1.8 - 6.6 K/cumm [facility] Lymphocyte abs 2.0 1.2 - 3.3 K/cumm [facility] Monocyte abs 1.7(H) 0.2 - 1.2 K/cumm [facility] Eosinophils, abs 0.1 0.0 - 0.5 K/cumm [facility] Basophil abs 0.0 0.0 - 0.2 K/cumm [facility] NRBC 0.0 0.0 - 0.2 % [facility] NRBC abs 0.00 0.00 - 0.01 K/cumm [facility] Blood specimen (specimen) 03/30/2018 8:39 AM CDT 03/30/2018 8:41 AM CDT Narrative [facility] - 03/30/2018 8:45 AM CDT Ainta Gillespie MD LAB BLOOD ORDERABLES Final Result [facility] Department [place] [address] * CMV DNA QN, PCR (01/05/2018 1:02 PM JEWEL [employer]AT SURFACER) [facility] CMV DNA Not Detected [facility] Comment: Interpretive Data: The quantifiable range of this assay is 137 IUnits/mL to 9,100,000 IUnits/mL (2.14 log IUnits/mL to 6.96 log IUnits/mL). Testing was performed by the [employer] AmpliPrep/NIA TaqMan CMV Test ([employer] Testing performed at [facility] Current interpretive data was last revised on 17. Blood specimen (specimen) 01/05/2018 1:02 PM J[employer]EL FLAT SURF[employer]ER 01/05/2018 3:20 PM JEWEL FLAT SURFACER Narrative [facility] - 01/05/2018 9:03 PM J[employer]ER us Regine Garcia MD LAB MICROBIOLOGY - GENERAL ORDERABLES Final Result [facility] Department [place] [address] * (ABNORMAL) CBC with auto differential (01/05/2018 9:20 AM JEWEL [employer]AT [employer]ACER) WBC 6.7 3.8 - 9.8 K/cumm [facility] RBC 3.73(L) 4.50 - 5.70 M/cumm [facility] Hgb 12.8(L) 13.8 - 17.2 g/dL [facility] Hct 38.4(L) 40.7 - 50.3 % [facility] Mean Cellular Volume - CAM 103.0(H) 80.0 - 97.6 fL [facility] Mean Cellular Hemoglobin - CAM 34.4(H) 26.7 - 33.7 pg [facility] Mean Cellular Hemoglobin Concentration - CAM 33.4 32.7 - 35.5 g/dL [facility] Rdw 21.0(H) 11.8 - 14.6 % [facility] Plt 481(H) 140 - 440 K/cumm [facility] Mean Platelet Volume - CAM 7.0 6.8 - 10.4 fL [facility] Neutrophil pct 67.6 38.7 - 74.5 % [facility] Lymphocyte pct 16.8(L) 20.0 - 54.3 % [facility] Monos 14.8(H) 4.3 - 13.5 % [facility] Eosinophil pct 0.1 0.0 - 6.0 % [facility] Basophil pct 0.7 0.0 - 3.0 % [facility] Neutrophil abs 4.6 1.8 - 6.6 K/cumm [facility] Lymphocyte abs 1.1(L) 1.2 - 3.3 K/cumm [facility] Monocyte abs 1.0 0.2 - 1.2 K/cumm [facility] Eosinophils, abs 0.0 0.0 - 0.5 K/cumm [facility] Basophil abs 0.0 0.0 - 0.2 K/cumm [facility] NRBC 0.1 0.0 - 0.2 % [facility] NRBC abs 0.00 0.00 - 0.01 K/cumm [facility] Blood specimen (specimen) 01/05/2018 9:20 AM JEWEL FLAT SURFACER 01/05/2018 9:24 AM JEWEL FLAT SURFACER Narrative [facility] - 01/05/2018 9:27 AM JEWEL FLAT SURFACER Anita Gillespie MD LAB BLOOD ORDERABLES Final Result Performing Organization Address [facility] de Phone Number [facility] Department [place] [address] * Tacrolimus level, random (01/05/2018 9:14 AM JEWEL FL[employer]FACER) Tacrolimus, random 3.9 ng/mL [facility] Comment: Interpretive Data Testing performed by liquid chromatography-tandem mass spectrometry (LC- MS/MS).This test was developed using an analyte specific reagent. Its performance characteristics were determined by the [facility] in a manner consistent with CLIA requirements. ??This test has not been cleared or approved by the U.S. Food and Drug Administration. Current interpretive data was last revised on 2016. Blood specimen (specimen) 01/05/2018 9:14 AM JEWEL FLAT [employer]FACER 01/05/2018 10:04 AM JEWEL FLAT SURFACER Narrative [facility] - 01/05/2018 2:21 PM JEWEL FLAT SURFACER Anita Gillespie MD LAB BLOOD ORDERABLES Final Result Performing Organization Address [facility] Co de Phone Number [facility] Department [place] [address] * (ABNORMAL) Comprehensive metabolic panel (01/05/2018 9:14 AM JEWEL FLAT SURFACER) Sodium 142 135 - 145 mmol/L [facility] Potassium, pl 4.2 3.3 - 4.9 mmol/L [facility] CO2 26 22 - 32 mmol/L [facility] BUN 11 8 - 25 mg/dL [facility] Glucose 96 70 - 199 mg/dL [facility] Comment: [...] interpretive data was last revised 2017. Creatinine 0.65(L) 0.80 - 1.30 mg/dL [facility] Calcium 9.0 8.5 - 10.3 mg/dL [facility] Chloride 108 97 - 110 mmol/L [facility] Albumin 4.4 3.5 - 5.0 g/dL [facility] AST 26 10 - 50 Units/L [facility] ALT 27 7 - 55 Units/L [facility] Alk phos 124 40 - 130 Units/L [facility] Bilirubin, total 0.4 0.1 - 1.2 mg/dL [facility] Protein, pl 6.1(L) 6.5 - 8.5 g/dL [facility] Anion gap 8 2 - 15 mmol/L [facility] Blood specimen (specimen) 01/05/2018 9:14 AM JEWEL FLAT SURFACER 01/05/2018 10:04 AM JEWEL FLAT SURFACER Narrative [facility] - 01/05/2018 10:35 AM JEWEL FLAT SURFACER Anita Gillespie MD LAB BLOOD [place] [address] * (ABNORMAL) Lactate dehydrogenase (LD) (01/05/2018 9:14 AM JEWEL FLAT SURFACER) Lactate dehydrogenase (LDH) 273(H) 100 - 250 Units/L [facility] Blood specimen (specimen) 01/05/2018 9:14 AM JEWEL FLAT SURFACER 01/05/2018 10:04 AM JEWEL FLAT SURFACER Narrative [facility] - 01/05/2018 10:35 AM JEWEL FLAT SURFACER Anita Gillespie MD LAB BLOOD ORDERABLES Final Result Performing Organization Address [facility] [place] [address] * (ABNORMAL) Gamma GT (01/05/2018 9:14 AM JEWEL FLAT SURFACER) GGT 116(H) 10 - 50 Units/L [facility] Blood specimen (specimen) 01/05/2018 9:14 AM JEWEL FLAT SURFACER 01/05/2018 10:04 AM JEWEL FLAT SURFACER Narrative [facility] - 01/05/2018 10:33 AM JEWEL FLAT SURFACER Anita Gillespie MD LAB BLOOD ORDERABLES Final Result Performing Organization Address [facility] de Phone Number [facility] [place] [address] * Tacrolimus level, random (12/08/2017 9:13 AM JEWEL FLAT SURFACER) Tacrolimus, random 5.2 ng/mL [facility] Comment: Interpretive Data Testing performed by liquid chromatography-tandem mass spectrometry (LC- MS/MS).This test was developed using an analyte specific reagent. Its performance characteristics were determined by the [facility] in a manner consistent with CLIA requirements. ??This test has not been cleared or approved by the U.S. Food and Drug Administration. Current interpretive data was last revised on 2016. Blood specimen (specimen) 12/08/2017 9:13 AM JEWEL FLAT SURFACER 12/08/2017 9:36 AM JEWEL FLAT SURFACER Narrative [facility] - 12/08/2017 11:46 AM JEWEL FLAT SURFACER Anita Gillespie MD LAB BLOOD ORDERABLES Final Result [facility] Department [place] [address] * (ABNORMAL) Comprehensive metabolic panel (12/08/2017 9:13 AM JEWEL FLAT SURFACER) Sodium 143 135 - 145 mmol/L [facility] Potassium, pl 5.0(H) 3.3 - 4.9 mmol/L [facility] CO2 27 22 - 32 mmol/L [facility] BUN 16 8 - 25 mg/dL [facility] Glucose 105 70 - 199 mg/dL [facility] Comment: [...] 2017. Creatinine 0.68(L) 0.80 - 1.30 mg/dL [facility] Calcium 9.1 8.5 - 10.3 mg/dL [facility] Chloride 106 97 - 110 mmol/L [facility] Albumin 4.0 3.5 - 5.0 g/dL [facility] AST 32 10 - 50 Units/L [facility] ALT 43 7 - 55 Units/L [facility] Alk phos 161(H) 40 - 130 Units/L [facility] Bilirubin, total <0.2 0.1 - 1.2 mg/dL [facility] Protein, pl 6.1(L) 6.5 - 8.5 g/dL [facility] Anion gap 10 2 - 15 mmol/L [facility] Blood specimen (specimen) 12/08/2017 9:13 AM JEWEL FLAT SURFACER 12/08/2017 9:36 AM JEWEL FLAT SURFACER Narrative [facility] - 12/08/2017 10:22 AM JEWEL FLAT SURFACER us Anita Gillespie MD LAB BLOOD ORDERABLES Final Result [facility] [place] [address] * (ABNORMAL) Gamma GT (12/08/2017 9:13 AM JEWEL FLAT SURFACER) GGT 181(H) 10 - 50 Units/L [facility] Blood specimen (specimen) 12/08/2017 9:13 AM JEWEL FLAT SURFACER 12/08/2017 9:36 AM JEWEL FLAT SURFACER Narrative [facility] - 12/08/2017 10:11 AM JEWEL FLAT SURFACER us Anita Gillespie MD LAB BLOOD ORDERABLES Final Result Performing Organization Address [facility] Co de Phone Number [facility] [place] [address] * (ABNORMAL) Lactate dehydrogenase (LD) (12/08/2017 9:13 AM JEWEL FLAT SURFACER) Lactate dehydrogenase (LDH) 665(H) 100 - 250 Units/L [facility] Blood specimen (specimen) 12/08/2017 9:13 AM JEWEL FLAT SURFACER 12/08/2017 9:36 AM JEWEL FLAT SURFACER Narrative [facility] - 12/08/2017 10:10 AM JEWEL FLAT SURFACER us Anita Gillespie MD LAB BLOOD ORDERABLES Final Result Performing Organization Address [facility] Co de Phone Number [facility] [place] [address] * (ABNORMAL) Morphology exam (12/08/2017 9:13 AM JEWEL FLAT SURFACER) Neutrophils 6(L) 44 - 80 % [facility] Lymphocytes 80(H) 8 - 44 % [facility] Abnormal Lymphocyte 2(H) 0 - 0 % [facility] Immature Lymphocyte 1(H) 0 - 0 % [facility] Monos 11(H) 2 - 8 % [facility] Cells Diffed - CAM 100 [facility] Platelet estimate Increased Adequate [facility] Platelet morphology Few Enlarged(A) [facility] Polychromia - CAM Slight None Seen [facility] Anisocytosis - CAM Slight None Seen [facility] Poikilocytosis - CAM Slight None Seen [facility] Target cells 1 - 10 % None Seen [facility] Blood specimen (specimen) 12/08/2017 9:13 AM JEWEL FLAT SURFACER 12/08/2017 9:19 AM JEWEL FLAT SURFACER Narrative [facility] - 12/08/2017 10:06 AM JEWEL FLAT SURFACER us Anita Gillespie MD LAB BLOOD ORDERABLES Final Result [facility] Department [place] [address] * Protime-INR (12/08/2017 9:13 AM JEWEL FLAT SURFACER) Pathologist [facility] PT 12.3 8.5 - 13.0 sec [facility] INR 1.15 0.80 - 1.21 [facility] Comment: Interpretive Data Inpatient therapeutic ranges* Atrial fibrillation ?2.0-3.0 INR Venous thrombo-embolism ?2.0-3.0 INR Bioprosthetic heart valve ?* Mechanical heart valve, bileaflet or tilting disk,aortic position ? 2.0-3.0 INR All other,or bileaflet or tilting disk, in mitral position ? 2.5-3.5 INR *See the pharmacy resource directory (PHRED) for an updated copy of the Tool Book at [email or web address] Current Interpretive Data was last revised 2012. Blood specimen (specimen) 12/08/2017 9:13 AM JEWEL FLAT SURFACER 12/08/2017 9:35 AM JEWEL FLAT SURFACER Narrative [facility] - 12/08/2017 9:56 AM JEWEL FLAT SURFACER Anita Gillespie MD LAB BLOOD ORDERABLES Final Result [facility] Department [place] [address] * (ABNORMAL) CBC with auto differential (12/08/2017 9:13 AM JEWEL FLAT SURFACER) WBC 23.8(H) 3.8 - 9.8 K/cumm [facility] RBC 3.33(L) 4.50 - 5.70 M/cumm [facility] Hgb 10.7(L) 13.8 - 17.2 g/dL [facility] Hct 32.6(L) 40.7 - 50.3 % [facility] Mean Cellular Volume - CAM 98.1(H) 80.0 - 97.6 fL [facility] Mean Cellular Hemoglobin - CAM 32.2 26.7 - 33.7 pg [facility] Mean Cellular Hemoglobin Concentration - CAM 32.8 32.7 - 35.5 g/dL [facility] Rdw 18.2(H) 11.8 - 14.6 % [facility] Plt 456(H) 140 - 440 K/cumm [facility] Mean Platelet Volume - CAM 9.0 6.8 - 10.4 fL [facility] NRBC 0.2 0.0 - 0.2 % [facility] NRBC abs 0.05(H) 0.00 - 0.01 K/cumm [facility] Blood specimen (specimen) 12/08/2017 9:13 AM JEWEL FLAT SURFACER 12/08/2017 9:15 AM JEWEL FLAT SURFACER [facility]ative [facility] - 12/08/2017 9:22 AM JEWEL FLAT SURFACER Anita Gillespie MD LAB BLOOD ORDERABLES Edite d Result - Final [facility] Department [place] [address] * (ABNORMAL) Comprehensive metabolic panel (11/17/2017 9:39 AM JEWEL FLAT SURFACER) [facility] Sodium 139 135 - 145 mmol/L [facility] Potassium, pl 4.5 3.3 - 4.9 mmol/L [facility] CO2 26 22 - 32 mmol/L [facility] BUN 9 8 - 25 mg/dL [facility] Glucose 100 70 - 199 mg/dL [facility] Comment: [...] interpretive data was last revised 2017. Creatinine 0.73(L) 0.80 - 1.30 mg/dL [facility] Calcium 9.3 8.5 - 10.3 mg/dL [facility] Chloride 105 97 - 110 mmol/L [facility] Albumin 4.2 3.5 - 5.0 g/dL [facility] AST 29 10 - 50 Units/L [facility] ALT 39 7 - 55 Units/L [facility] Alk phos 194(H) 40 - 130 Units/L [facility] Bilirubin, total 0.2 0.1 - 1.2 mg/dL [facility] Protein, pl 6.5 6.5 - 8.5 g/dL [facility] Anion gap 8 2 - 15 mmol/L [facility] Blood specimen (specimen) 11/17/2017 9:39 AM JEWEL FLAT SURFACER 11/17/2017 9:56 AM JEWEL FLAT SURFACER Narrative [facility] - 11/17/2017 10:12 AM JEWEL FLAT SURFACER Anita Gillespie MD LAB BLOOD ORDERABLES Final Result Performing Organization Address [facility] Co de Phone Number [facility] [place] [address] * (ABNORMAL) Lactate dehydrogenase (LD) (11/17/2017 9:39 AM JEWEL FLAT SURFACER) Lactate dehydrogenase (LDH) 348(H) 100 - 250 Units/L [facility] Blood specimen (specimen) 11/17/2017 9:39 AM [employer] 11/17/2017 9:56 AM [employer] Narrative [facility] - 11/17/2017 10:12 AM [employer] Anita Gillespie MD LAB BLOOD ORDERABLES Final Result Performing Organization Address [facility] de Phone Number [facility] [place] [address] * Tacrolimus level, random (11/17/2017 9:37 AM J[employer]EL [employer]) Tacrolimus, random 4.1 ng/mL [facility] Comment: Interpretive Data Testing performed by liquid chromatography-tandem mass spectrometry (LC- MS/MS).This test was developed using an analyte specific reagent. ?? Its performance characteristics were determined by the [facility] [facility] in a manner consistent with CLIA requirements. ??This test has not been cleared or approved by the U.S. Food and Drug Administration. Current interpretive data was last revised on 2016. Blood specimen (specimen) 11/17/2017 9:37 AM JEWEL FLAT SURFACER 11/17/2017 10:10 AM JEWEL FLAT SURFACER Narrative [facility] - 11/17/2017 6:58 PM JEWEL FLAT SURFACER us Regine Garcia MD LAB BLOOD ORDERABLES Final Result Performing Organization Address [facility] Co de Phone Number [facility] [place] [address] * (ABNORMAL) Gamma GT (11/17/2017 9:37 AM JEWEL FLAT SURFACER) GGT 242(H) 10 - 50 Units/L [facility] Blood specimen (specimen) 11/17/2017 9:37 AM JEWEL FLAT SURFACER 11/17/2017 10:10 AM JEWEL FLAT SURFACER Narrative [facility] - 11/17/2017 10:43 AM JEWEL FLAT SURFACER us Regine Garcia MD LAB BLOOD ORDERABLES Final Result Performing Organization Address [facility] de Phone Number [facility] [place] [address] * Protime-INR (11/17/2017 9:37 AM JEWEL FLAT SURFACER) Pathologist [facility] PT 11.6 8.5 - 13.0 sec [facility] INR 1.08 0.80 - 1.21 [facility] Comment: Interpretive Data Inpatient therapeutic ranges* Atrial fibrillation ?2.0-3.0 INR Venous thrombo-embolism ?2.0-3.0 INR Bioprosthetic heart valve ?* Mechanical heart valve, bileaflet or tilting disk,aortic position ? 2.0-3.0 INR All other,or bileaflet or tilting disk, in mitral position ? 2.5-3.5 INR *See the pharmacy resource directory (PHRED) for an updated copy of the Tool Book at [email or web address] Current Interpretive Data was last revised 2012. Blood specimen (specimen) 11/17/2017 9:37 AM JEWEL FLAT SURFACER 11/17/2017 10:10 AM JEWEL FLAT SURFACER Narrative [facility] - 11/17/2017 10:34 AM JEWEL FLAT SURFACER Anita Gillespie MD LAB BLOOD ORDERABLES Final Result Performing Organization Address [facility] Co de Phone Number [facility] Department [place] [address] * (ABNORMAL) Morphology exam (11/17/2017 9:30 AM JEWEL FLAT SURFACER) [facility] Band Neutrophil pct 1 0 - 6 % [facility] Neutrophils 56 44 - 80 % [facility] Lymphocytes 24 8 - 44 % [facility] Monos 19(H) 2 - 8 % [facility] Cells Diffed - CAM 100 [facility] Platelet estimate Increased Adequate [facility] Platelet morphology Few Enlarged(A) [facility] Polychromia - CAM Slight None Seen [facility] Anisocytosis - CAM Slight None Seen [facility] Poikilocytosis - CAM Slight None Seen [facility] Blood specimen (specimen) 11/17/2017 9:30 AM JEWEL FLAT SURFACER 11/17/2017 9:38 AM JEWEL FLAT SURFACER Narrative [facility] - 11/17/2017 10:01 AM JEWEL FLAT SURFACER us Anita Gillespie MD LAB BLOOD ORDERABLES Final Result Performing Organization Address [facility] de Phone Number [facility] Department [place] [address] * (ABNORMAL) CBC with auto differential (11/17/2017 9:30 AM JEWEL FLAT SURFACER) [facility] WBC 6.5 3.8 - 9.8 K/cumm [facility] RBC 3.99(L) 4.50 - 5.70 M/cumm [facility] Hgb 13.2(L) 13.8 - 17.2 g/dL [facility] Hct 39.3(L) 40.7 - 50.3 % [facility] Mean Cellular Volume - CAM 98.6(H) 80.0 - 97.6 fL [facility] Mean Cellular Hemoglobin - CAM 33.1 26.7 - 33.7 pg [facility] Mean Cellular Hemoglobin Concentration - CAM 33.6 32.7 - 35.5 g/dL [facility] Rdw 18.8(H) 11.8 - 14.6 % [facility] Plt 754(H) 140 - 440 K/cumm [facility] Mean Platelet Volume - CAM 7.2 6.8 - 10.4 fL [facility] NRBC 0.1 0.0 - 0.2 % [facility] NRBC abs 0.01 0.00 - 0.01 K/cumm [facility] Blood specimen (specimen) 11/17/2017 9:30 AM JEWEL FLAT SURFACER 11/17/2017 9:33 AM JEWEL FLAT SURFACER Narrative [facility] - 11/17/2017 9:42 AM JEWEL FLAT SURFACER us Anita Gillespie MD LAB BLOOD ORDERABLES Final Result [facility] Department [place] [address] * (ABNORMAL) Morphology exam (10/27/2017 9:07 AM JEWEL FLAT SURFACER) Metamyelocyte pct 1(H) 0 - 0 % [facility] Band Neutrophil pct 2 0 - 6 % [facility] Neutrophils 65 44 - 80 % [facility] Lymphocytes 10 8 - 44 % [facility] H Monos 20(H) 2 - 8 % [facility] Eosinophils 1 0 - 6 % [facility] Basophil pct 1 0 - 3 % [facility] Cells Diffed - CAM 100 [facility] Platelet estimate Increased Adequate [facility] Platelet morphology Few Enlarged(A) [facility] Polychromia - CAM Slight None Seen [facility] Anisocytosis - CAM Slight None Seen [facility] Poikilocytosis - CAM Slight None Seen [facility] Ovalocytes 1 - 10 % None Seen [facility] Schistocytes rare [facility] Target cells 1 - 10 % None Seen [facility] Blood specimen (specimen) 10/27/2017 9:07 AM JEWEL FLAT SURFACER 10/27/2017 9:14 AM JEWEL FLAT SURFACER Narrative [facility] - 10/27/2017 9:46 AM JEWEL FLAT SURFACER us Anita Gillespie MD LAB BLOOD ORDERABLES Final Result [facility] Department [place] [address] * (ABNORMAL) CBC with auto differential (10/27/2017 9:07 AM JEWEL FLAT SURFACER) WBC 12.6(H) 3.8 - 9.8 K/cumm [facility] RBC 4.05(L) 4.50 - 5.70 M/cumm [facility] Hgb 13.2(L) 13.8 - 17.2 g/dL [facility] Hct 39.2(L) 40.7 - 50.3 % [facility] Mean Cellular Volume - CAM 96.7 80.0 - 97.6 fL [facility] Mean Cellular Hemoglobin - CAM 32.6 26.7 - 33.7 pg [facility] Mean Cellular Hemoglobin Concentration - CAM 33.8 32.7 - 35.5 g/dL [facility] Rdw 18.9(H) 11.8 - 14.6 % [facility] Plt 547(H) 140 - 440 K/cumm [facility] Mean Platelet Volume - CAM 7.3 6.8 - 10.4 fL [facility] NRBC 0.1 0.0 - 0.2 % [facility] NRBC abs 0.01 0.00 - 0.01 K/cumm [facility] Blood specimen (specimen) 10/27/2017 9:07 AM JEWEL FLAT SURFACER 10/27/2017 9:10 AM JEWEL FLAT SURFACER Narrative [facility] - 10/27/2017 9:17 AM JEWEL FLAT SURFACER us Anita Gillespie MD LAB BLOOD ORDERABLES Final Result [facility] Department [place] [address] * (ABNORMAL) Comprehensive metabolic panel (10/27/2017 9:05 AM JEWEL FLAT SURFACER) Sodium 143 135 - 145 mmol/L [facility] Potassium, pl 4.2 3.3 - 4.9 mmol/L [facility] CO2 27 22 - 32 mmol/L [facility] BUN 10 8 - 25 mg/dL [facility] Glucose 109 70 - 199 mg/dL [facility] Comment: [...] interpretive data was last revised 2017. Creatinine 0.71(L) 0.80 - 1.30 mg/dL [facility] Calcium 9.5 8.5 - 10.3 mg/dL [facility] Chloride 106 97 - 110 mmol/L [facility] Albumin 4.1 3.5 - 5.0 g/dL [facility] AST 37 10 - 50 Units/L [facility] ALT 54 7 - 55 Units/L [facility] Alk phos 177(H) 40 - 130 Units/L [facility] Bilirubin, total 0.1 0.1 - 1.2 mg/dL [facility] Protein, pl 6.2(L) 6.5 - 8.5 g/dL [facility] Anion gap 10 2 - 15 mmol/L [facility] Blood specimen (specimen) 10/27/2017 9:05 AM JEWEL FLAT SURFACER 10/27/2017 9:15 AM JEWEL FLAT SURFACER Narrative [facility] - 10/27/2017 9:45 AM JEWEL FLAT SURFACER Anita Gillespie MD LAB BLOOD ORDERABLES Final Result Performing Organization Address [facility] [place] [address] * (ABNORMAL) Lactate dehydrogenase (LD) (10/27/2017 9:05 AM JEWEL FLAT SURFACER) Pathologist [facility] Lactate dehydrogenase (LDH) 342(H) 100 - 250 Units/L [facility] Blood specimen (specimen) 10/27/2017 9:05 AM JEWEL FLAT SURFACER 10/27/2017 9:15 AM JEWEL FLAT SURFACER Narrative [facility] - 10/27/2017 9:45 AM JEWEL FLAT SURFACER Anita Gillespie MD LAB BLOOD ORDERABLES Final Result Performing Organization Address [facility] de Phone Number [place] [place] [address] * Protime-INR (10/27/2017 9:05 AM JEWEL FLAT SURFACER) [facility] PT 10.4 8.5 - 13.0 sec [facility] INR 0.97 0.80 - 1.21 [facility] Comment: Interpretive Data Inpatient therapeutic ranges* Atrial fibrillation ?2.0-3.0 INR Venous thrombo-embolism ?2.0-3.0 INR Bioprosthetic heart valve ?* Mechanical heart valve, bileaflet or tilting disk,aortic position ? 2.0-3.0 INR All other,or bileaflet or tilting disk, in mitral position ? 2.5-3.5 INR *See the pharmacy resource directory (PHRED) for an updated copy of the Tool Book at [email or web address] Current Interpretive Data was last revised 2012. Blood specimen (specimen) 10/27/2017 9:05 AM JEWEL FLAT SURFACER 10/27/2017 9:27 AM JEWEL FLAT SURFACER Narrative [facility] - 10/27/2017 9:43 AM JEWEL FLAT SURFACER Anita Gillespie MD LAB BLOOD ORDERABLES Final Result Performing Organization Address [facility] Co de Phone Number [facility] [place] [address] * (ABNORMAL) Gamma GT (10/27/2017 9:03 AM JEWEL FLAT SURFACER) GGT 288(H) 10 - 50 Units/L [facility] Blood specimen (specimen) 10/27/2017 9:03 AM JEWEL FLAT SURFACER 10/27/2017 9:20 AM JEWEL FLAT SURFACER Narrative [facility] - 10/27/2017 9:49 AM JEWEL FLAT SURFACER Anita Gillespie MD LAB BLOOD ORDERABLES Final Result Performing Organization Address [facility] [place] [address] * Tacrolimus level, random (10/06/2017 12:00 PM JEWEL FLAT SURFACER) Tacrolimus, random 3.2 ng/mL [facility] Comment: Interpretive Data Testing performed by liquid chromatography-tandem mass spectrometry (LC- MS/MS).This test was developed using an analyte specific reagent. Its performance characteristics were determined by the [facility] Laboratory in a manner consistent with CLIA requirements. ??This test has not been cleared or approved by the U.S. Food and Drug Administration. Current interpretive data was last revised on 2016. Blood specimen (specimen) 10/06/2017 12:00 PM JEWEL FLAT SURFACER 10/06/2017 9:25 AM JEWEL FLAT SURFACER Narrative [facility] - 10/06/2017 2:43 PM JEWEL FLAT SURFACER us Anita Gillespie MD LAB BLOOD ORDERABLES Final Result [facility] Department [place] [address] * (ABNORMAL) Comprehensive metabolic panel (10/06/2017 9:10 AM JEWEL FLAT SURFACER) Sodium 140 135 - 145 mmol/L [facility] Potassium, pl 4.4 3.3 - 4.9 mmol/L [facility] CO2 26 22 - 32 mmol/L [facility] BUN 13 8 - 25 mg/dL [facility] Glucose 109 70 - 199 mg/dL [facility] Comment: [...] 2017. Creatinine 0.66(L) 0.80 - 1.30 mg/dL [facility] Calcium 9.3 8.5 - 10.3 mg/dL [facility] Chloride 106 97 - 110 mmol/L [facility] Albumin 4.3 3.5 - 5.0 g/dL [facility] AST 27 10 - 50 Units/L [facility] ALT 38 7 - 55 Units/L [facility] Alk phos 167(H) 40 - 130 Units/L [facility] Bilirubin, total 0.2 0.1 - 1.2 mg/dL [facility] Protein, pl 6.2(L) 6.5 - 8.5 g/dL [facility] Anion gap 8 2 - 15 mmol/L [facility] Blood specimen (specimen) 10/06/2017 9:10 AM JEWEL FLAT SURFACER 10/06/2017 9:13 AM JEWEL FLAT SURFACER Narrative [facility] - 10/06/2017 9:36 AM JEWEL FLAT SURFACER Anita Gillespie MD LAB BLOOD ORDERABLES Final Result Performing Organization Address [facility] [place] [address] * (ABNORMAL) Lactate dehydrogenase (LD) (10/06/2017 9:10 AM JEWEL FLAT SURFACER) Pathologist [facility] Lactate dehydrogenase (LDH) 331(H) 100 - 250 Units/L [facility] Blood specimen (specimen) 10/06/2017 9:10 AM JEWEL FLAT SURFACER 10/06/2017 9:13 AM JEWEL FLAT SURFACER Narrative [facility] - 10/06/2017 9:36 AM JEWEL FLAT SURFACER Anita Gillespie MD LAB BLOOD ORDERABLES Final Result Performing Organization Address [facility] [place] [address] * Protime-INR (10/06/2017 9:02 AM JEWEL FLAT SURFACER) Pathologist [facility] PT 10.7 9.2 - 14.0 sec [facility] INR 0.94 0.81 - 1.22 [facility] Comment: Interpretive Data Inpatient therapeutic ranges* Atrial fibrillation ?2.0-3.0 INR Venous thrombo-embolism ?2.0-3.0 INR Bioprosthetic heart valve ?* Mechanical heart valve, bileaflet or tilting disk,aortic position ? 2.0-3.0 INR All other,or bileaflet or tilting disk, in mitral position ? 2.5-3.5 INR *See the pharmacy resource directory (PHRED) for an updated copy of the Tool Book at [email or web address]/[email or web address] Current Interpretive Data was last revised 2012. Blood specimen (specimen) 10/06/2017 9:02 AM JEWEL FLAT SURFACER 10/06/2017 9:24 AM JEWEL FLAT SURFACER Narrative [facility] - 10/06/2017 9:39 AM JEWEL FLAT SURFACER us Anita Gillespie MD LAB BLOOD ORDERABLES Final Result [facility] Department [place] [address] * (ABNORMAL) CBC with auto differential (10/06/2017 8:59 AM JEWEL FLAT SURFACER) WBC 7.6 3.8 - 9.8 K/cumm [facility] RBC 4.41(L) 4.50 - 5.70 M/cumm [facility] Hgb 13.9 13.8 - 17.2 g/dL [facility] Hct 41.5 40.7 - 50.3 % [facility] Mean Cellular Volume - CAM 94.2 80.0 - 97.6 fL [facility] Mean Cellular Hemoglobin - CAM 31.5 26.7 - 33.7 pg [facility] Mean Cellular Hemoglobin Concentration - CAM 33.4 32.7 - 35.5 g/dL [facility] Rdw 17.2(H) 11.8 - 14.6 % [facility] Plt 360 140 - 440 K/cumm [facility] Mean Platelet Volume - CAM 7.6 6.8 - 10.4 fL [facility] Neutrophil pct 55.2 38.7 - 74.5 % [facility] Lymphocyte pct 20.5 20.0 - 54.3 % [facility] Monos 18.4(H) 4.3 - 13.5 % [facility] Eosinophil pct 5.1 0.0 - 6.0 % [facility] Basophil pct 0.8 0.0 - 3.0 % [facility] Neutrophil abs 4.2 1.8 - 6.6 K/cumm [facility] Lymphocyte abs 1.6 1.2 - 3.3 K/cumm [facility] Monocyte abs 1.4(H) 0.2 - 1.2 K/cumm [facility] Eosinophils, abs 0.4 0.0 - 0.5 K/cumm [facility] Basophil abs 0.1 0.0 - 0.2 K/cumm [facility] NRBC 0.0 0.0 - 0.2 % [facility] NRBC abs 0.00 0.00 - 0.01 K/cumm [facility] Blood specimen (specimen) 10/06/2017 8:59 AM JEWEL FLAT SURFACER 10/06/2017 9:03 AM JEWEL FLAT SURFACER Narrative [facility] - 10/06/2017 9:06 AM JEWEL FLAT SURFACER us Anita Gillespie MD LAB BLOOD ORDERABLES Final Result Performing Organization Address [facility] Co de Phone Number [facility] Department [place] [address] * (ABNORMAL) Morphology exam (09/22/2017 8:46 AM JEWEL FLAT SURFACER) Band Neutrophil pct 2 0 - 6 % [facility] Neutrophils 96(H) 44 - 80 % [facility] Lymphocytes 2(L) 8 - 44 % [facility] Cells Diffed - CAM 100 [facility] Platelet estimate Decreased Adequate [facility] Platelet morphology Few Enlarged(A) [facility] Polychromia - CAM Slight None Seen [facility] Anisocytosis - CAM Slight None Seen [facility] Poikilocytosis - CAM Slight None Seen [facility] Ovalocytes 1 - 10 % None Seen [facility] Target cells 1 - 10 % None Seen [facility] Blood specimen (specimen) 09/22/2017 8:46 AM JEWEL FLAT SURFACER 09/22/2017 8:58 AM JEWEL FLAT SURFACER us Regine Garcia MD LAB BLOOD ORDERABLES Final Result Performing Organization Address City/[facility]/ZIP Co de Phone Number [facility] Department [place] [address] * (ABNORMAL) CBC with auto differential (09/22/2017 8:46 AM JEWEL FLAT SURFACER) Pathologist [facility] WBC 64.2(H) 3.8 - 9.8 K/cumm [facility] RBC 4.06(L) 4.50 - 5.70 M/cumm [facility] Hgb 12.6(L) 13.8 - 17.2 g/dL [facility] Hct 38.2(L) 40.7 - 50.3 % [facility] Mean Cellular Volume - CAM 94.0 80.0 - 97.6 fL [facility] Mean Cellular Hemoglobin - CAM 30.9 26.7 - 33.7 pg [facility] Mean Cellular Hemoglobin Concentration - CAM 32.9 32.7 - 35.5 g/dL [facility] Rdw 17.6(H) 11.8 - 14.6 % [facility] Plt 73(L) 140 - 440 K/cumm [facility] Mean Platelet Volume - CAM 9.8 6.8 - 10.4 fL [facility] NRBC 0.0 0.0 - 0.2 % [facility] NRBC abs 0.02(H) 0.00 - 0.01 K/cumm [facility] Blood specimen (specimen) 09/22/2017 8:46 AM JEWEL FLAT SURFACER 09/22/2017 8:50 AM JEWEL FLAT SURFACER Regine Garcia MD LAB BLOOD ORDERABLES Final Result [facility] Department [place] [address] * (ABNORMAL) Comprehensive metabolic panel (09/15/2017 10:15 AM JEWEL FLAT SURFACER) [facility] Sodium 140 135 - 145 mmol/L [facility] Potassium, pl 4.3 3.3 - 4.9 mmol/L [facility] CO2 23 22 - 32 mmol/L [facility] BUN 13 8 - 25 mg/dL [facility] Glucose 166 70 - 199 mg/dL [facility] Comment: [...] interpretive data was last revised 2017. Creatinine 0.72(L) 0.80 - 1.30 mg/dL [facility] Calcium 8.9 8.5 - 10.3 mg/dL [facility] Chloride 107 97 - 110 mmol/L [facility] Albumin 4.1 3.5 - 5.0 g/dL [facility] AST 34 10 - 50 Units/L [facility] ALT 34 7 - 55 Units/L [facility] Alk phos 134(H) 40 - 130 Units/L [facility] Bilirubin, total 0.4 0.1 - 1.2 mg/dL [facility] Protein, pl 6.5 6.5 - 8.5 g/dL [facility] Anion gap 10 2 - 15 mmol/L [facility] Blood specimen (specimen) 09/15/2017 10:15 AM JEWEL FLAT SURFACER 09/15/2017 10:16 AM JEWEL FLAT SURFACER Regine Garcia MD LAB BLOOD ORDERABLES Final Result [facility] Department [place] [address] * Lactate dehydrogenase (LD) (09/15/2017 10:15 AM JEWEL FLAT SURFACER) Lactate dehydrogenase (LDH) 196 100 - 250 Units/L [facility] Blood specimen (specimen) 09/15/2017 10:15 AM JEWEL FLAT SURFACER 09/15/2017 10:16 AM JEWEL FLAT SURFACER Regine Garcia MD LAB BLOOD ORDERABLES Final Result [facility] Department [place] [address] * (ABNORMAL) CBC with auto differential (09/15/2017 10:07 AM JEWEL FLAT SURFACER) WBC 10.2(H) 3.8 - 9.8 K/cumm [facility] RBC 4.64 4.50 - 5.70 M/cumm [facility] Hgb 14.3 13.8 - 17.2 g/dL [facility] Hct 43.3 40.7 - 50.3 % [facility] Mean Cellular Volume - CAM 93.4 80.0 - 97.6 fL [facility] Mean Cellular Hemoglobin - CAM 30.8 26.7 - 33.7 pg [facility] Mean Cellular Hemoglobin Concentration - CAM 33.0 32.7 - 35.5 g/dL [facility] Rdw 16.8(H) 11.8 - 14.6 % [facility] Plt 586(H) 140 - 440 K/cumm [facility] Mean Platelet Volume - CAM 7.4 6.8 - 10.4 fL [facility] Neutrophil pct 68.3 38.7 - 74.5 % [facility] Lymphocyte pct 17.2(L) 20.0 - 54.3 % [facility] Monos 12.6 4.3 - 13.5 % [facility] Eosinophil pct 0.7 0.0 - 6.0 % [facility] Basophil pct 1.2 0.0 - 3.0 % [facility] Neutrophil abs 7.0(H) 1.8 - 6.6 K/cumm [facility] Lymphocyte abs 1.8 1.2 - 3.3 K/cumm [facility] Monocyte abs 1.3(H) 0.2 - 1.2 K/cumm [facility] Eosinophils, abs 0.1 0.0 - 0.5 K/cumm [facility] Basophil abs 0.1 0.0 - 0.2 K/cumm [facility] NRBC 0.1 0.0 - 0.2 % [facility] NRBC abs 0.01 0.00 - 0.01 K/cumm [facility] Blood specimen (specimen) 09/15/2017 10:07 AM JEWEL FLAT SURFACER 09/15/2017 10:10 AM JEWEL FLAT SURFACER us Regine Garcia MD LAB BLOOD ORDERABLES Final Result Performing Organization Address [facility] de Phone Number [facility] [place] [address] * (ABNORMAL) Morphology exam (09/08/2017 7:44 AM JEWEL FLAT SURFACER) Neutrophils 74 44 - 80 % [facility] Lymphocytes 14 8 - 44 % [facility] Monos 9(H) 2 - 8 % [facility] Eosinophils 3 0 - 6 % [facility] Cells Diffed - CAM 100 [facility] Platelet estimate Adequate Adequate [facility] Platelet morphology Few Enlarged(A) [facility] Anisocytosis - CAM Slight None Seen [facility] Montero Combine Bodies - CAM Present None Seen [facility] Blood specimen (specimen) 09/08/2017 7:44 AM JEWEL FLAT SURFACER 09/08/2017 7:51 AM JEWEL FLAT SURFACER us Anita Gillespie MD LAB BLOOD ORDERABLES Final Result Performing Organization Address [facility] [place] [address] * (ABNORMAL) CBC with auto differential (09/08/2017 7:44 AM JEWEL FLAT SURFACER) WBC 10.1(H) 3.8 - 9.8 K/cumm [facility] RBC 5.00 4.50 - 5.70 M/cumm [facility] Hgb 15.7 13.8 - 17.2 g/dL [facility] Hct 46.5 40.7 - 50.3 % [facility] Mean Cellular Volume - CAM 92.9 80.0 - 97.6 fL [facility] Mean Cellular Hemoglobin - CAM 31.4 26.7 - 33.7 pg [facility] Mean Cellular Hemoglobin Concentration - CAM 33.8 32.7 - 35.5 g/dL [facility] Rdw 16.8(H) 11.8 - 14.6 % [facility] Plt 334 140 - 440 K/cumm [facility] Mean Platelet Volume - CAM 8.1 6.8 - 10.4 fL [facility] NRBC 0.0 0.0 - 0.2 % [facility] NRBC abs 0.00 0.00 - 0.01 K/cumm [facility] Blood specimen (specimen) 09/08/2017 7:44 AM JEWEL FLAT SURFACER 09/08/2017 7:45 AM JEWEL FLAT SURFACER us Anita Gillespie MD LAB BLOOD ORDERABLES Final Result [facility] Department [place] [address] * (ABNORMAL) Comprehensive metabolic panel (09/08/2017 7:39 AM JEWEL FLAT SURFACER) Pathologist [facility] Sodium 141 135 - 145 mmol/L [facility] Potassium, pl 4.5 3.3 - 4.9 mmol/L [facility] CO2 27 22 - 32 mmol/L [facility] BUN 17 8 - 25 mg/dL [facility] Glucose 83 70 - 199 mg/dL [facility] Creatinine 0.86 0.80 - 1.30 mg/dL [facility] Calcium 9.9 8.5 - 10.3 mg/dL [facility] Chloride 105 97 - 110 mmol/L [facility] Albumin 4.3 3.5 - 5.0 g/dL [facility] AST 26 10 - 50 Units/L [facility] ALT 35 7 - 55 Units/L [facility] Alk phos 193(H) 40 - 130 Units/L [facility] Bilirubin, total 0.4 0.1 - 1.2 mg/dL [facility] Protein, pl 7.1 6.5 - 8.5 g/dL [facility] Anion gap 9 2 - 15 mmol/L [facility] Blood specimen (specimen) 09/08/2017 7:39 AM JEWEL FLAT SURFACER 09/08/2017 7:56 AM JEWEL FLAT SURFACER us Anita Gillespie MD LAB BLOOD ORDERABLES Final Result [facility] [place] [address] * Lactate dehydrogenase (LD) (09/08/2017 7:39 AM JEWEL FLAT SURFACER) [facility] Lactate dehydrogenase (LDH) 232 100 - 250 Units/L [facility] Blood specimen (specimen) 09/08/2017 7:39 AM JEWEL FLAT SURFACER 09/08/2017 7:56 AM JEWEL FLAT SURFACER us Anita Gillespie MD LAB BLOOD ORDERABLES Final Result Performing Organization Address [facility] Co de Phone Number [facility] [place] [address] * (ABNORMAL) Comprehensive metabolic panel (09/03/2017 8:22 AM CDT) [facility] Sodium 140 135 - 145 mmol/L [facility] Potassium, pl 4.1 3.3 - 4.9 mmol/L [facility] CO2 25 22 - 32 mmol/L [facility] BUN 8 8 - 25 mg/dL [facility] Glucose 103 70 - 199 mg/dL [facility] Creatinine 0.68(L) 0.80 - 1.30 mg/dL [facility] Calcium 8.8 8.5 - 10.3 mg/dL [facility] Chloride 106 97 - 110 mmol/L [facility] Albumin 3.9 3.5 - 5.0 g/dL [facility] AST 28 10 - 50 Units/L [facility] ALT 46 7 - 55 Units/L [facility] Alk phos 217(H) 40 - 130 Units/L [facility] Bilirubin, total 0.4 0.1 - 1.2 mg/dL [facility] Protein, pl 6.3(L) 6.5 - 8.5 g/dL [facility] Anion gap 9 2 - 15 mmol/L [facility] Blood specimen (specimen) 09/03/2017 8:22 AM CDT 09/03/2017 8:22 AM CDT us Anita Gillespie MD LAB BLOOD ORDERABLES Final Result Performing Organization Address [facility] Co de Phone Number [facility] Department [place] [address] * (ABNORMAL) Lactate dehydrogenase (LD) (09/03/2017 8:22 AM CDT) Lactate dehydrogenase (LDH) 360(H) 100 - 250 Units/L [facility] Blood specimen (specimen) 09/03/2017 8:22 AM CDT 09/03/2017 8:22 AM CDT us Anita Gillespie MD LAB BLOOD ORDERABLES Final Result Performing Organization Address [facility] de Phone Number [facility] Department [place] [address] * (ABNORMAL) Morphology exam (09/03/2017 7:54 AM CDT) Myelocyte pct 3(H) 0 - 0 % [facility] Metamyelocyte pct 2(H) 0 - 0 % [facility] Band Neutrophil pct 4 0 - 6 % [facility] Neutrophils 62 44 - 80 % [facility] Lymphocytes 13 8 - 44 % [facility] Abnormal Lymphocyte 1(H) 0 - 0 % [facility] Monos 15(H) 2 - 8 % [facility] Cells Diffed - CAM 100 [facility] Platelet estimate Decreased Adequate [facility] Anisocytosis - CAM Slight None Seen [facility] Poikilocytosis - CAM Slight None [facility] Target cells 1 - 10 % None Seen [facility] Blood specimen (specimen) 09/03/2017 7:54 AM CDT 09/03/2017 8:02 AM CDT us Anita Gillespie MD LAB BLOOD ORDERABLES Final Result Performing Organization Address City/[facility]/ZIP Co de Phone Number [facility] Department [place] [address] * (ABNORMAL) CBC with auto differential (09/03/2017 7:54 AM CDT) Pathologist [facility] WBC 27.3(H) 3.8 - 9.8 K/cumm [facility] RBC 4.66 4.50 - 5.70 M/cumm [facility] Hgb 14.3 13.8 - 17.2 g/dL [facility] Hct 42.8 40.7 - 50.3 % [facility] Mean Cellular Volume - CAM 91.9 80.0 - 97.6 fL [facility] Mean Cellular Hemoglobin - CAM 30.6 26.7 - 33.7 pg [facility] Mean Cellular Hemoglobin Concentration - CAM 33.3 32.7 - 35.5 g/dL [facility] Rdw 16.2(H) 11.8 - 14.6 % [facility] Plt 101(L) 140 - 440 K/cumm [facility] Mean Platelet Volume - CAM 9.5 6.8 - 10.4 fL [facility] NRBC 0.1 0.0 - 0.2 % [facility] NRBC abs 0.02(H) 0.00 - 0.01 K/cumm [facility] Blood specimen (specimen) 09/03/2017 7:54 AM CDT 09/03/2017 7:57 AM CDT us Anita Gillespie MD LAB BLOOD ORDERABLES Final Result [facility] Department [place] [address] * (ABNORMAL) Comprehensive metabolic panel (08/27/2017 8:29 AM CDT) Pathologist [facility] Sodium 141 135 - 145 mmol/L [facility] Potassium, pl 3.8 3.3 - 4.9 mmol/L [facility] CO2 26 22 - 32 mmol/L [facility] BUN 14 8 - 25 mg/dL [facility] Glucose 106 70 - 199 mg/dL [facility] Creatinine 0.64(L) 0.80 - 1.30 mg/dL [facility] Calcium 9.5 8.5 - 10.3 mg/dL [facility] Chloride 105 97 - 110 mmol/L [facility] Albumin 4.1 3.5 - 5.0 g/dL [facility] AST 41 10 - 50 Units/L [facility] ALT 44 7 - 55 Units/L [facility] Alk phos 156(H) 40 - 130 Units/L [facility] Bilirubin, total 0.4 0.1 - 1.2 mg/dL [facility] Protein, pl 6.4(L) 6.5 - 8.5 g/dL [facility] Anion gap 10 2 - 15 mmol/L [facility] Blood specimen (specimen) 08/27/2017 8:29 AM CDT 08/27/2017 8:35 AM CDT us Anita Gillespie MD LAB BLOOD ORDERABLES Final Result Performing Organization Address City/[facility]/ZIP Co de Phone Number [facility] Department [place] [address] * (ABNORMAL) Lactate dehydrogenase (LD) (08/27/2017 8:29 AM CDT) Pathologist [facility] Lactate dehydrogenase (LDH) 503(H) 100 - 250 Units/L [facility] Blood specimen (specimen) 08/27/2017 8:29 AM CDT 08/27/2017 8:35 AM CDT us Anita Gillespie MD LAB BLOOD ORDERABLES Final Result [facility] [place] [address] * (ABNORMAL) CBC with auto differential (08/27/2017 8:27 AM CDT) Pathologist [facility] WBC 5.8 3.8 - 9.8 K/cumm [facility] RBC 4.78 4.50 - 5.70 M/cumm [facility] Hgb 14.8 13.8 - 17.2 g/dL [facility] Hct 43.5 40.7 - 50.3 % [facility] Mean Cellular Volume - CAM 90.9 80.0 - 97.6 fL [facility] Mean Cellular Hemoglobin - CAM 30.9 26.7 - 33.7 pg [facility] Mean Cellular Hemoglobin Concentration - CAM 34.0 32.7 - 35.5 g/dL [facility] Rdw 15.6(H) 11.8 - 14.6 % [facility] Plt 210 140 - 440 K/cumm [facility] Mean Platelet Volume - CAM 7.9 6.8 - 10.4 fL [facility] Neutrophil pct 26.3(L) 38.7 - 74.5 % [facility] Lymphocyte pct 26.6 20.0 - 54.3 % [facility] Monos 46.6(H) 4.3 - 13.5 % [facility] Eosinophil pct 0.3 0.0 - 6.0 % [facility] Basophil pct 0.2 0.0 - 3.0 % [facility] Neutrophil abs 1.5(L) 1.8 - 6.6 K/cumm [facility] Lymphocyte abs 1.6 1.2 - 3.3 K/cumm [facility] Monocyte abs 2.7(H) 0.2 - 1.2 K/cumm [facility] Eosinophils, abs 0.0 0.0 - 0.5 K/cumm [facility] Basophil abs 0.0 0.0 - 0.2 K/cumm [facility] NRBC 0.0 0.0 - 0.2 % [facility] NRBC abs 0.00 0.00 - 0.01 K/cumm [facility] Blood specimen (specimen) 08/27/2017 8:27 AM CDT 08/27/2017 8:31 AM CDT us Anita Gillespie MD LAB BLOOD ORDERABLES Final Result [facility] Department [place] [address] * (ABNORMAL) Comprehensive metabolic panel (08/25/2017 8:15 AM CDT) Sodium 139 135 - 145 mmol/L [facility] Potassium, pl 4.1 3.3 - 4.9 mmol/L [facility] CO2 24 22 - 32 mmol/L [facility] BUN 15 8 - 25 mg/dL [facility] Glucose 95 70 - 199 mg/dL [facility] Creatinine 0.72(L) 0.80 - 1.30 mg/dL [facility] Calcium 9.4 8.5 - 10.3 mg/dL [facility] Chloride 105 97 - 110 mmol/L [facility] Albumin 4.1 3.5 - 5.0 g/dL [facility] AST 47 10 - 50 Units/L [facility] ALT 42 7 - 55 Units/L [facility] Alk phos 156(H) 40 - 130 Units/L [facility] Bilirubin, total 0.3 0.1 - 1.2 mg/dL [facility] Protein, pl 6.4(L) 6.5 - 8.5 g/dL [facility] Anion gap 10 2 - 15 mmol/L [facility] Blood specimen (specimen) 08/25/2017 8:15 AM CDT 08/25/2017 8:22 AM CDT us Anita Gillespie MD LAB BLOOD ORDERABLES Final Result [facility] Department [place] [address] * (ABNORMAL) Lactate dehydrogenase (LD) (08/25/2017 8:15 AM CDT) Lactate dehydrogenase (LDH) 661(H) 100 - 250 Units/L [facility] Blood specimen (specimen) 08/25/2017 8:15 AM CDT 08/25/2017 8:22 AM CDT us Anita Gillespie MD LAB BLOOD ORDERABLES Final Result [facility] Department [place] [address] * (ABNORMAL) CBC with auto differential (08/25/2017 8:14 AM CDT) WBC 5.6 3.8 - 9.8 K/cumm [facility] RBC 5.05 4.50 - 5.70 M/cumm [facility] Hgb 15.6 13.8 - 17.2 g/dL [facility] Hct 45.7 40.7 - 50.3 % [facility] Mean Cellular Volume - CAM 90.6 80.0 - 97.6 fL [facility] Mean Cellular Hemoglobin - CAM 30.9 26.7 - 33.7 pg [facility] Mean Cellular Hemoglobin Concentration - CAM 34.1 32.7 - 35.5 g/dL [facility] Rdw 15.6(H) 11.8 - 14.6 % [facility] Plt 125(L) 140 - 440 K/cumm [facility] Mean Platelet Volume - CAM 8.1 6.8 - 10.4 fL [facility] Neutrophil pct 12.8(L) 38.7 - 74.5 % [facility] Lymphocyte pct 33.7 20.0 - 54.3 % [facility] Monos 44.5(H) 4.3 - 13.5 % [facility] Eosinophil pct 8.6(H) 0.0 - 6.0 % [facility] Basophil pct 0.4 0.0 - 3.0 % [facility] Neutrophil abs 0.7(L) 1.8 - 6.6 K/cumm [facility] Lymphocyte abs 1.9 1.2 - 3.3 K/cumm [facility] Monocyte abs 2.5(H) 0.2 - 1.2 K/cumm [facility] Eosinophils, abs 0.5 0.0 - 0.5 K/cumm [facility] Basophil abs 0.0 0.0 - 0.2 K/cumm [facility] NRBC 0.1 0.0 - 0.2 % [facility] NRBC abs 0.00 0.00 - 0.01 K/cumm [facility] Blood specimen (specimen) 08/25/2017 8:14 AM CDT 08/25/2017 8:19 AM CDT us Anita Gillespie MD LAB BLOOD ORDERABLES Final Result Performing Organization Address City/[facility]/ZIP Co de Phone Number [facility] [place] [address] * Vitamin D 25 hydroxy (08/18/2017 10:04 AM CDT) [facility] Vitamin D 25-OH 34.8 30.0 - 100.0 ng/mL [facility] Blood specimen (specimen) 08/18/2017 10:04 AM CDT 08/18/2017 11:16 AM CDT us Regine Garcia MD LAB BLOOD ORDERABLES Final Result Performing Organization Address [facility] de Phone Number [facility] Department [place] [address] * (ABNORMAL) Comprehensive metabolic panel (08/18/2017 10:04 AM CDT) [facility] Sodium 140 135 - 145 mmol/L [facility] Potassium, pl 4.0 3.3 - 4.9 mmol/L [facility] CO2 24 22 - 32 mmol/L [facility] BUN 12 8 - 25 mg/dL [facility] Glucose 106 70 - 199 mg/dL [facility] Creatinine 0.72(L) 0.80 - 1.30 mg/dL [facility] Calcium 9.2 8.5 - 10.3 mg/dL [facility] Chloride 106 97 - 110 mmol/L [facility] Albumin 4.0 3.5 - 5.0 g/dL [facility] AST 42 10 - 50 Units/L [facility] ALT 49 7 - 55 Units/L [facility] Alk phos 172(H) 40 - 130 Units/L [facility] Bilirubin, total 0.4 0.1 - 1.2 mg/dL [facility] Protein, pl 6.5 6.5 - 8.5 g/dL [facility] Anion gap 10 2 - 15 mmol/L [facility] Blood specimen (specimen) 08/18/2017 10:04 AM CDT 08/18/2017 10:23 AM CDT Regine Garcia MD LAB BLOOD ORDERABLES Final Result Performing Organization Address City/[facility] Co de Phone Number [facility] [place] [address] * Uric acid (08/18/2017 10:04 AM CDT) Pathologist [facility] Uric acid 5.7 3.0 - 8.0 mg/dL [facility] Blood specimen (specimen) 08/18/2017 10:04 AM CDT 08/18/2017 10:23 AM CDT Regine Garcia MD LAB BLOOD ORDERABLES Final Result Performing Organization Address [facility] Co de Phone Number [facility] Department [place] [address] * (ABNORMAL) Lactate dehydrogenase (LD) (08/18/2017 10:04 AM CDT) Pathologist [facility] Lactate dehydrogenase (LDH) 512(H) 100 - 250 Units/L [facility] Blood specimen (specimen) 08/18/2017 10:04 AM CDT 08/18/2017 10:23 AM CDT Regine Garcia MD LAB BLOOD ORDERABLES Final Result Performing Organization Address City/[facility] Co de Phone Number [facility] [place] [address] * (ABNORMAL) CBC with auto differential (08/18/2017 9:58 AM CDT) WBC 6.9 3.8 - 9.8 K/cumm [facility] RBC 4.87 4.50 - 5.70 M/cumm [facility] Hgb 15.1 13.8 - 17.2 g/dL [facility] Hct 44.0 40.7 - 50.3 % [facility] Mean Cellular Volume - CAM 90.2 80.0 - 97.6 fL [facility] Mean Cellular Hemoglobin - CAM 31.0 26.7 - 33.7 pg [facility] Mean Cellular Hemoglobin Concentration - CAM 34.3 32.7 - 35.5 g/dL [facility] Rdw 15.4(H) 11.8 - 14.6 % [facility] Plt 157 140 - 440 K/cumm [facility] Mean Platelet Volume - CAM 7.9 6.8 - 10.4 fL [facility] Neutrophil pct 42.4 38.7 - 74.5 % [facility] Lymphocyte pct 29.1 20.0 - 54.3 % [facility] Monos 21.3(H) 4.3 - 13.5 % [facility] Eosinophil pct 6.3(H) 0.0 - 6.0 % [facility] Basophil pct 0.9 0.0 - 3.0 % [facility] Neutrophil abs 2.9 1.8 - 6.6 K/cumm [facility] Lymphocyte abs 2.0 1.2 - 3.3 K/cumm [facility] Monocyte abs 1.5(H) 0.2 - 1.2 K/cumm [facility] Eosinophils, abs 0.4 0.0 - 0.5 K/cumm [facility] Basophil abs 0.1 0.0 - 0.2 K/cumm [facility] NRBC 0.0 0.0 - 0.2 % [facility] NRBC abs 0.00 0.00 - 0.01 K/cumm [facility] Blood specimen (specimen) 08/18/2017 9:58 AM CDT 08/18/2017 10:04 AM CDT us Regine Garcia MD LAB BLOOD ORDERABLES Final Result [facility] Department [place] [address] * Hepatitis B surface antigen (08/18/2017 9:51 AM CDT) Pathologist [facility] HepBsAg Nonreactive Nonreactive [facility] Blood specimen (specimen) 08/18/2017 9:51 AM CDT 08/18/2017 10:31 AM CDT Regine Garcia MD LAB MICROBIOLOGY - GENERAL ORDERABLES Edited Result - Final Performing Organization Address [facility] de Phone Number [facility] Department [place] [address] * Hepatitis C antibody (08/18/2017 9:51 AM CDT) Pathologist [facility] Hep C Ab Nonreactive Nonreactive [facility] Comment: Interpretive Data Positive and greyzone results should be confirmed by a molecular method. If positive or greyzone, a second separately collected sample should be submitted for Hepatitis C Virus RNA. Detection and Quantitation by Real-Time Reverse Supervisor Dials-PCR.Current Interpretive data was last revised on 2017. Blood specimen (specimen) 08/18/2017 9:51 AM CDT 08/18/2017 10:31 AM CDT us Regine Garcia MD LAB MICROBIOLOGY - GENERAL ORDERABLES Edited Result - Final Performing Organization Address [facility] de Phone Number [facility] Department [place] [address] * Hepatitis B core antibody, total (08/18/2017 9:51 AM CDT) Pathologist [facility] Hep B core IgG/IgM Nonreactive Nonreactive [facility] Blood specimen (specimen) 08/18/2017 9:51 AM CDT 08/18/2017 10:31 AM CDT Regine Garcia MD LAB MICROBIOLOGY - GENERAL ORDERABLES Edited Result - Final Performing Organization Address [facility] de Phone Number [facility] [place] [address] * Hepatitis B surface antibody (08/18/2017 9:51 AM CDT) [facility] HBsAb (immune status) Nonreactive [facility] Comment: Interpretive Data A Negative Result indicates HBsAb of less than 10mIU/mL; a Positive Result indicates HBsAb of greater than or equal to 10mIU/mL. If qualitative result is Positive, HBsAb Quantitation will be reported. Assay performance characteristics have not been established as an aid in determining susceptibility to HBV infection prior to or following vaccination in infants, or children. For monitoring serum HBsAb levels during hepatitis B immunoglobulin (HBIG) therapy in transplant recipients, please refer to institutional HBIG protocol for desirable HBsAb levels. Current interpretive data was last revised on 2016. Blood specimen (specimen) 08/18/2017 9:51 AM CDT 08/18/2017 10:31 AM CDT Regine Garcia MD LAB MICROBIOLOGY - GENERAL ORDERABLES Edited Result - Final [facility] Department [place] [address] * (ABNORMAL) CBC with auto differential (07/22/2017 8:34 AM CDT) [facility] WBC 5.8 3.8 - 9.8 K/cumm [facility] RBC 5.15 4.50 - 5.70 M/cumm [facility] Hgb 16.0 13.8 - 17.2 g/dL [facility] Hct 47.2 40.7 - 50.3 % [facility] Mean Cellular Volume - CAM 91.7 80.0 - 97.6 fL [facility] Mean Cellular Hemoglobin - CAM 31.1 26.7 - 33.7 pg [facility] Mean Cellular Hemoglobin Concentration - CAM 33.9 32.7 - 35.5 g/dL [facility] Rdw 14.4 11.8 - 14.6 % [facility] Plt 56(L) 140 - 440 K/cumm [facility] Mean Platelet Volume - CAM 8.4 6.8 - 10.4 fL [facility] Neutrophil pct 19.4(L) 38.7 - 74.5 % [facility] Lymphocyte pct 47.7 20.0 - 54.3 % [facility] Monos 28.0(H) 4.3 - 13.5 % [facility] Eosinophil pct 4.5 0.0 - 6.0 % [facility] Basophil pct 0.4 0.0 - 3.0 % [facility] Neutrophil abs 1.1(L) 1.8 - 6.6 K/cumm [facility] Lymphocyte abs 2.8 1.2 - 3.3 K/cumm [facility] Monocyte abs 1.6(H) 0.2 - 1.2 K/cumm [facility] Eosinophils, abs 0.3 0.0 - 0.5 K/cumm [facility] Basophil abs 0.0 0.0 - 0.2 K/cumm [facility] NRBC 0.0 0.0 - 0.2 % [facility] NRBC abs 0.00 0.00 - 0.01 K/cumm [facility] Blood specimen (specimen) 07/22/2017 8:34 AM CDT 07/22/2017 8:39 AM CDT Regine Garcia MD LAB BLOOD ORDERABLES Final Result Performing Organization Address City/[facility] de Phone Number [facility] Department [place] [address] * Reticulocytes (07/22/2017 8:34 AM CDT) [facility] Reticulocyte Count - CAM 0.5 0.5 - 1.8 % [facility] Reticulocyte Count - CAM 0.025 0.020 - 0.087 M/cumm [facility] Blood specimen (specimen) 07/22/2017 8:34 AM CDT 07/22/2017 8:39 AM CDT Regine Garcia MD LAB BLOOD ORDERABLES Final Result [facility] Department [place] [address] * (ABNORMAL) Comprehensive metabolic panel (07/22/2017 8:25 AM CDT) Sodium 141 135 - 145 mmol/L [facility] Potassium, pl 4.1 3.3 - 4.9 mmol/L [facility] CO2 24 22 - 32 mmol/L [facility] BUN 12 8 - 25 mg/dL [facility] Glucose 124 70 - 199 mg/dL [facility] Creatinine 0.82 0.80 - 1.30 mg/dL [facility] Calcium 9.1 8.5 - 10.3 mg/dL [facility] Chloride 106 97 - 110 mmol/L [facility] Albumin 4.0 3.5 - 5.0 g/dL [facility] AST 46 10 - 50 Units/L [facility] ALT 50 7 - 55 Units/L [facility] Alk phos 179(H) 40 - 130 Units/L [facility] Bilirubin, total 0.4 0.1 - 1.2 mg/dL [facility] Protein, pl 6.6 6.5 - 8.5 g/dL [facility] Anion gap 11 2 - 15 mmol/L [facility] Blood specimen (specimen) 07/22/2017 8:25 AM CDT 07/22/2017 8:55 AM CDT Regine Garcia MD LAB BLOOD ORDERABLES Final Result Performing Organization Address [facility] Co de Phone Number [facility] Department [place] [address] * (ABNORMAL) Lactate dehydrogenase (LD) (07/22/2017 8:25 AM CDT) Lactate dehydrogenase (LDH) 396(H) 100 - 250 Units/L [facility] Blood specimen (specimen) 07/22/2017 8:25 AM CDT 07/22/2017 8:55 AM CDT us Regine Garcia MD LAB BLOOD ORDERABLES Final Result [facility] Department [place] [address] * (ABNORMAL) CBC with auto differential (05/11/2017 1:13 PM CDT) WBC 22.8(H) 3.8 - 9.8 K/cumm [facility] RBC 4.25(L) 4.50 - 5.70 M/cumm [facility] Hgb 13.3(L) 13.8 - 17.2 g/dL [facility] Hct 40.6(L) 40.7 - 50.3 % [facility] Mean Cellular Volume - CAM 95.5 80.0 - 97.6 fL [facility] Mean Cellular Hemoglobin - CAM 31.2 26.7 - 33.7 pg [facility] Mean Cellular Hemoglobin Concentration - CAM 32.7 32.7 - 35.5 g/dL [facility] Rdw 16.3(H) 11.8 - 14.6 % [facility] Plt 236 140 - 440 K/cumm [facility] Mean Platelet Volume - CAM 8.8 6.8 - 10.4 fL [facility] Neutrophil pct 64.1 38.7 - 74.5 % [facility] Lymphocyte pct 16.7(L) 20.0 - 54.3 % [facility] Monos 18.8(H) 4.3 - 13.5 % [facility] Eosinophil pct 0.0 0.0 - 6.0 % [facility] Basophil pct 0.4 0.0 - 3.0 % [facility] Neutrophil abs 14.6(H) 1.8 - 6.6 K/cumm [facility] Lymphocyte abs 3.8(H) 1.2 - 3.3 K/cumm [facility] Monocyte abs 4.3(H) 0.2 - 1.2 K/cumm [facility] Eosinophils, abs 0.0 0.0 - 0.5 K/cumm [facility] Basophil abs 0.1 0.0 - 0.2 K/cumm [facility] NRBC 0.1 0.0 - 0.2 % [facility] NRBC abs 0.02(H) 0.00 - 0.01 K/cumm [facility] Blood specimen (specimen) 05/11/2017 1:13 PM CDT 05/11/2017 1:17 PM CDT Regine Garcia MD LAB BLOOD ORDERABLES Final Result Performing Organization Address [facility] Co de Phone Number [facility] Department [place] [address] * (ABNORMAL) Reticulocytes (05/11/2017 1:13 PM CDT) [facility] Reticulocyte Count - CAM 1.9(H) 0.5 - 1.8 % [facility] Reticulocyte Count - CAM 0.080 0.020 - 0.087 M/cumm [facility] Blood specimen (specimen) 05/11/2017 1:13 PM CDT 05/11/2017 1:17 PM CDT us Regine Garcia MD LAB BLOOD ORDERABLES Final Result Performing Organization Address [facility] de Phone Number [facility] Department [place] [address] * (ABNORMAL) Comprehensive metabolic panel (05/11/2017 1:10 PM CDT) [facility] Sodium 137 135 - 145 mmol/L [facility] Potassium, pl 4.6 3.3 - 4.9 mmol/L [facility] CO2 24 22 - 32 mmol/L [facility] BUN 17 8 - 25 mg/dL [facility] Glucose 133 70 - 199 mg/dL [facility] Creatinine 0.65(L) 0.80 - 1.30 mg/dL [facility] Calcium 8.9 8.5 - 10.3 mg/dL [facility] Chloride 104 97 - 110 mmol/L [facility] Albumin 3.9 3.5 - 5.0 g/dL [facility] AST 68(H) 10 - 50 Units/L [facility] ALT 78(H) 7 - 55 Units/L [facility] Alk phos 127 40 - 130 Units/L [facility] Bilirubin, total 0.6 0.1 - 1.2 mg/dL [facility] Protein, pl 7.8 6.5 - 8.5 g/dL [facility] Anion gap 9 2 - 15 mmol/L [facility] Blood specimen (specimen) 05/11/2017 1:10 PM CDT 05/11/2017 1:30 PM CDT Result [facility] Regine Garcia MD LAB BLOOD ORDERABLES Final Result Performing Organization Address City/[facility]/ZIP Co de Phone Number [facility] Department [place] [address] * (ABNORMAL) Lactate dehydrogenase (LD) (05/11/2017 1:10 PM CDT) Lactate dehydrogenase (LDH) 289(H) 100 - 250 Units/L [facility] Blood specimen (specimen) 05/11/2017 1:10 PM CDT 05/11/2017 1:30 PM CDT Regine Garcia MD LAB BLOOD ORDERABLES Final Result Performing Organization Address [facility] Co de Phone Number [facility] Department [place] [address] * DISCHARGE LABORATORY CUMULATIVE REPORT (05/10/2017 12:00 AM CDT) Narrative 05/10/2017 12:00 AM CDT Ordered by an unspecified provider. Dl Provider LAB BLOOD ORDERABLES Chata l Result documented in this encounter Visit Diagnoses Not on filedocumented in this encounter Additional Health Concerns Infection Onset Date Last Indicated Resolved Time [facility] Comment:Resolved - Flag applied in error. 03/11/2017 03/11/2017 05/31/2017 12:00 AM CDT documented as of this encounter Care Teams Green End Worker Relationship Specialty Start Date End Date Kali Cruz MD [address] [place] [address] [place] [address] PCP - General 04/09/17 03/21/19 documented as of this encounter
--- OUTSIDE RECORDS SUMMARY | 2024-10-28 06:28 | XMS_ITS | Encounter Summary ---
Author Organization [facility] Healthcare Address [address] [place] [address] Care Team Providers Care Radiology Rn Name Role Phone Kali Cruz MD Primary Care Provider [phone] Encounter Details Date Type Department Care Team (Latest Contact Info) Description 10/19/2017 2:00 PM CHARACTER IMPERSONATOR - 10/21/2017 4:47 PM CHARACTER IMPERSONATOR Hospital Encounter [facility] [address] [place] [address] Anita Gillespie MD [address] [address] Александр Young MD [address] [address] Discharge Disposition: Discharge to home or self care Social History Tobacco Use Types Packs/Day Years Used Date Smoking Tobacco: Never Assessed Sex and Gender Information Value Date Recorded Sex Assigned at Not on file Legal Sex Male 6:28 AM CHARACTER IMPERSONATOR Gender Identity Not on file Sexual Orientation Straight 08/22/2021 9: 23 AM CDT documented as of this encounter Last Filed Vital Signs Vital Sign Reading Time Taken Comments Blood Pressure 118/71 10/21/2017 12:31 PM CHARACTER IMPERSONATOR Pulse 79 10/21/2017 12:31 PM CHARACTER IMPERSONATOR Temperature - - Respiratory Rate - - Oxygen Saturation 99% 10/21/2017 12: 31 PM CHARACTER IMPERSONATOR Inhaled Oxygen Concentration - - Weight 54.4 kg (119 lb 15.9 oz) 017 12:48 PM CHARACTER IMPERSONATOR Height 172.7 cm (5' 8 ) 10/19/2017 3:07 PM CHARACTER IMPERSONATOR Body Mass Index 18.25 10/19/2017 3:07 PM CHARACTER IMPERSONATOR documented in this encounter Medications at Time [...] Name Priority Date/Time Associated Diagnosis Comments CBC WITHOUT DIFFERENTIAL After X-Ray 10/21/2017 3:21 AM CHARACTER IMPERSONATOR DISCHARGE LABORATORY CUMULATIVE REPORT 10/21/2017 12:00 AM CHARACTER IMPERSONATOR TACROLIMUS LEVEL, TROUGH After X-Ray 10/20/2017 9:15 AM CHARACTER IMPERSONATOR CBC WITH AUTO DIFFERENTIAL After X-Ray 10/20/2017 6:08 AM CHARACTER IMPERSONATOR MANUAL DIFFERENTIAL After X-Ray 10/20/2017 6 :08 AM CHARACTER IMPERSONATOR APTT STAT 10/20/2017 6:08 AM CHARACTER IMPERSONATOR PHOSPHORUS After X-Ray 10/20/2017 6:08 AM CHARACTER IMPERSONATOR MAGNESIUM After X-Ray 10/20/2017 6:08 AM CHARACTER IMPERSONATOR HEPATIC FUNCTION PANEL After X-Ray 10/20/2017 6:08 AM CHARACTER IMPERSONATOR BASIC METABOLIC PANEL After X-Ray 10/20/2017 6:08 AM CHARACTER IMPERSONATOR APTT STAT 10/19/2017 10:33 PM CHARACTER IMPERSONATOR PROTIME-INR STAT 10/19/2017 10:33 PM CHARACTER IMPERSONATOR CBC WITHOUT DIFFERENTIAL STAT 10/19/2017 10:[address] CHEST W CONTRAST Routine 10/19/2017 2 :03 PM CHARACTER IMPERSONATOR MRI BRAIN W WO CONTRAST Routine 10/19/2017 1:50 PM CHARACTER IMPERSONATOR APTT STAT 10/19/2017 12:28 PM CHARACTER IMPERSONATOR PROTIME-INR STAT 10/19/2017 12:[address] HEAD WO CONTRAST Routine 10/19/2017 9 :34 AM CHARACTER IMPERSONATOR XR CHEST PA LATERAL 2 VIEWS Routine 10/19/2017 8:58 AM CHARACTER IMPERSONATOR LACTATE POC Routine Gen Lab 10/19/2017 3:32 AM CHARACTER IMPERSONATOR GLUCOSE POC Routine Gen Lab 10/19/2017 3:17 AM CHARACTER IMPERSONATOR CBC WITH AUTO DIFFERENTIAL STAT 10/19/2017 3:17 AM CHARACTER IMPERSONATOR MANUAL DIFFERENTIAL STAT 10/19/2017 3 :17 AM CHARACTER IMPERSONATOR APTT STAT 10/19/2017 3:17 AM CHARACTER IMPERSONATOR PROTIME-INR STAT 10/19/2017 3:17 AM CHARACTER IMPERSONATOR D-DIMER, QUANTITATIVE STAT 10/19/2017 3:17 AM CHARACTER IMPERSONATOR LIPASE STAT 10/19/2017 3:17 AM CHARACTER IMPERSONATOR HEPATIC FUNCTION PANEL STAT 10/19/2017 3:17 AM CHARACTER IMPERSONATOR BASIC METABOLIC PANEL STAT 10/19/2017 3:17 AM CHARACTER IMPERSONATOR documented in this encounter Results * (ABNORMAL) CBC without differential (10/21/2017 3:21 AM CHARACTER IMPERSONATOR) WBC 18.02(H) 3.80 - 9.90 K/cumm [facility] RBC 3.72(L) 4.30 - 5.80 M/cumm [facility] Hgb 12.0(L) 13.0 - 17.5 g/dL [facility] Hct 34.3(L) 38.9 - 50.3 % [facility] MCV 92.2 81.3 - 96.4 fL [facility] MCH 32.3 27.1 - 33.3 pg [facility] MCHC 35.0 32.3 - 35.7 g/dL [facility] RDW CV 18.1(H) 11.1 - 14.9 % [facility] RDW SD 60.3(H) 35.7 - 48.1 fL [facility] NRBC 0.7(H) 0.0 - 0.2 % [facility] NRBC abs 0.12(H) 0.00 - 0.01 K/cumm [facility] Plt 179 150 - 400 K/cumm [facility] MPV 10.8 9.1 - 12.3 fL [facility] Blood specimen (specimen) 10/21/2017 3:21 AM CHARACTER IMPERSONATOR 10/21/2017 3:53 AM CHARACTER IMPERSONATOR Narrative [facility] - 10/21/2017 4:02 AM CHARACTER IMPERSONATOR us Radha Booker MD LAB BLOOD ORDERABLES Chata cuadra Result [facility] [place] [address] * DISCHARGE LABORATORY CUMULATIVE REPORT (10/21/2017 12:00 AM CHARACTER IMPERSONATOR) Narrative 10/21/2017 12:00 AM CHARACTER IMPERSONATOR Ordered by an unspecified provider. us Historical Provider LAB BLOOD ORDERABLES Chata l Result * Tacrolimus level trough (10/20/2017 9:15 AM CHARACTER IMPERSONATOR) Tacrolimus, trough 3.6 ng/mL [facility] Comment: Interpretive Data The therapeutic range for tacrolimus can vary by transplant organ type and sample timing but a trough range of 5 - 15 ng/mL is typical. Testing performed by liquid chromatography-tandem mass spectrometry (LC- MS/MS).This test was developed using an analyte specific reagent. Its performance characteristics were determined by the [facility] in a manner consistent with CLIA requirements. This test has not been cleared or approved by the U.S. Food and Drug Administration. Current interpretive data was last revised on 2016. Blood specimen (specimen) 10/20/2017 9:15 AM CHARACTER IMPERSONATOR 10/20/2017 10:08 AM CHARACTER IMPERSONATOR Narrative [facility] - 10/20/2017 6:55 PM CHARACTER IMPERSONATOR Shannan Gonzales MD PhD LAB BLOOD ORDERABLES Final Result [facility] [place] [address] * (ABNORMAL) Manual Differential (10/20/2017 6:08 AM CHARACTER IMPERSONATOR) Pathologist [facility] Neutrophils 51.4 % [facility] Lymphocytes 9.4 % [facility] Monos 18.7 % [facility] Eosinophils 1[facility]9 % [facility] Metamyelocyte pct 9.3 % [facility] Myelocyte pct 6.5 % [facility] Promyelocyte pct 2.8 % [facility] Platelet estimate Decreased (A) [facility] Anisocytosis 2+(A) [facility] Macrocytes 8-15/HPF( A) [facility] Toxic granulation Present(A ) [facility] Target cells 8-15/HPF( A) [facility] [place] bodies Present(A ) [facility] WBC counted 107 Cells [facility] RBC morphology Present(A ) [facility] Neutrophil abs 9.69(H) 1.70 - 6.50 K/cumm [facility] Lymphs, abs 1.77 0.80 - 3.30 K/cumm [facility] Monos, abs 3.53(H) 0.20 - 0.80 K/cumm [facility] Eosinophils, abs 0.36 0.00 - 0.50 K/cumm [facility] Immature granulocyte, abs 3.51(H) 0.00 - 0.10 K/cumm [facility] Blood specimen (specimen) 10/20/2017 6:08 AM CHARACTER IMPERSONATOR 10/20/2017 6:37 AM CHARACTER IMPERSONATOR Narrative [facility] - 10/20/2017 8:18 AM CHARACTER IMPERSONATOR us Sarah Barfield MD LAB BLOOD ORDERABLES Fi nal Result Performing Organization Address [facility] de Phone Number [facility] Department [place] [address] * (ABNORMAL) Hepatic function panel (10/20/2017 6:08 AM CHARACTER IMPERSONATOR) Pathologist [facility] AST 37 10 - 50 Units/L [facility] ALT 42 7 - 55 Units/L [facility] Alk phos 166(H) 40 - 130 Units/L [facility] Bilirubin, total 0.2 0.1 - 1.2 mg/dL [facility] Bilirubin, direct <0.2(L) 0.1 - 0.3 mg/dL [facility] Protein, pl 5.6(L) 6.5 - 8.5 g/dL [facility] Albumin 3.4(L) 3.5 - 5.0 g/dL [facility] Blood specimen (specimen) 10/20/2017 6:08 AM CHARACTER IMPERSONATOR 10/20/2017 6:30 AM CHARACTER IMPERSONATOR Narrative [facility] - 10/20/2017 7:01 AM CHARACTER IMPERSONATOR us Sarah Barfield MD LAB BLOOD ORDERABLES Fi nal Result [facility] Department [place] [address] * (ABNORMAL) Basic metabolic panel (10/20/2017 6:08 AM CHARACTER IMPERSONATOR) Sodium 141 135 - 145 mmol/L [facility] Potassium, pl 4.4 3.3 - 4.9 mmol/L [facility] Chloride 106 97 - 110 mmol/L [facility] CO2 27 22 - 32 mmol/L [facility] BUN 9 8 - 25 mg/dL [facility] Glucose 101 70 - 199 mg/dL [facility] [...] interpretive data was last revised 2017. Creatinine 0.76(L) 0.80 - 1.30 mg/dL [facility] Calcium 8.9 8.5 - 10.3 mg/dL [facility] Anion gap 8 2 - 15 mmol/L [facility] Blood specimen (specimen) 10/20/2017 6:08 AM CHARACTER IMPERSONATOR 10/20/2017 6:30 AM CHARACTER IMPERSONATOR Narrative [facility] - 10/20/2017 6:56 AM CHARACTER IMPERSONATOR us Sarah Barfield MD LAB BLOOD ORDERABLES Fi nal Result Performing Organization Address City/[facility]/ZIP Co de Phone Number [facility] Department [place] [address] * Magnesium (10/20/2017 6:08 AM CHARACTER IMPERSONATOR) Pathologist [facility] Magnesium 2.1 1.4 - 2.5 mg/dL [facility] Blood specimen (specimen) 10/20/2017 6:08 AM CHARACTER IMPERSONATOR 10/20/2017 6:30 AM CHARACTER IMPERSONATOR Narrative [facility] - 10/20/2017 6:56 AM CHARACTER IMPERSONATOR Sarah Barfield MD LAB BLOOD ORDERABLES Fi nal Result Performing Organization Address [facility] de Phone Number [facility] [place] [address] * Phosphorus (10/20/2017 6:08 AM CHARACTER IMPERSONATOR) Phosphorus, pl 4.5 2.3 - 4.5 mg/dL [facility] Blood specimen (specimen) 10/20/2017 6:08 AM CHARACTER IMPERSONATOR 10/20/2017 6:30 AM CHARACTER IMPERSONATOR Narrative [facility] - 10/20/2017 6:56 AM CHARACTER IMPERSONATOR Sarah Barfield MD LAB BLOOD ORDERABLES Fi nal Result Performing Organization Address [facility] de Phone Number [facility] [place] [address] * (ABNORMAL) aPTT (10/20/2017 6:08 AM CHARACTER IMPERSONATOR) aPTT 69.5(H) 25.0 - 37.0 sec [facility] Comment: Interpretive Data Therapeutic heparin range:60.0 - 94.0 sec based on correlation with therapeutic heparin activity range of 0.3 -0.7 Units/mL. Current interpretive data was last revised on 2011. Blood specimen (specimen) 10/20/2017 6:08 AM CHARACTER IMPERSONATOR 10/20/2017 6:29 AM CHARACTER IMPERSONATOR Narrative [facility] - 10/20/2017 6:51 AM CHARACTER IMPERSONATOR Sarah Barfield MD LAB BLOOD ORDERABLES Fi nal Result Performing Organization Address [facility] de Phone Number [facility] Department [place] [address] * (ABNORMAL) CBC with auto differential (10/20/2017 6:08 AM CHARACTER IMPERSONATOR) [facility] WBC 18.86(H) 3.80 - 9.90 K/cumm [facility] RBC 3.85(L) 4.30 - 5.80 M/cumm [facility] Hgb 12.3(L) 13.0 - 17.5 g/dL [facility] Hct 35.3(L) 38.9 - 50.3 % [facility] MCV 91.7 81.3 - 96.4 fL [facility] MCH 31.9 27.1 - 33.3 pg [facility] MCHC 34.8 32.3 - 35.7 g/dL [facility] RDW CV 17.8(H) 11.1 - 14.9 % [facility] RDW SD 58.7(H) 35.7 - 48.1 fL [facility] Plt 132(L) 150 - 400 K/cumm [facility] MPV 11.6 9.1 - 12.3 fL [facility] NRBC 0.4(H) 0.0 - 0.2 % [facility] NRBC abs 0.08(H) 0.00 - 0.01 K/cumm [facility] Blood specimen (specimen) 10/20/2017 6:08 AM CHARACTER IMPERSONATOR 10/20/2017 6:30 AM CHARACTER IMPERSONATOR Narrative [facility] - 10/20/2017 7:39 AM CHARACTER IMPERSONATOR us Sarah Barfield MD LAB BLOOD ORDERABLES Fi nal Result [facility] [place] [address] * aPTT (10/19/2017 10:33 PM CHARACTER IMPERSONATOR) [facility] aPTT 33.4 25.0 - 37.0 sec [facility] Comment: Interpretive Data Therapeutic heparin range:60.0 - 94.0 sec based on correlation with therapeutic heparin activity range of 0.3 -0.7 Units/mL. Current interpretive data was last revised on 2011. Blood specimen (specimen) 10/19/2017 10:33 PM CHARACTER IMPERSONATOR 10/20/2017 Narrative [facility] - 10/20/2017 12:23 AM CHARACTER IMPERSONATOR Sarah Barfield MD LAB BLOOD ORDERABLES Fi nal Result [facility] [place] [address] * Protime-INR (10/19/2017 10:33 PM CHARACTER IMPERSONATOR) PT 11.4 8.5 - 13.0 sec [facility] INR 1.06 0.80 - 1.21 [facility] Comment: Interpretive Data Inpatient therapeutic ranges* Atrial fibrillation ?2.0-3.0 INR Venous thrombo-embolism ?2.0-3.0 INR Bioprosthetic heart valve ?* Mechanical heart valve, bileaflet or tilting disk,aortic position ? 2.0-3.0 INR All other,or bileaflet or tilting disk, in mitral position ? 2.5-3.5 INR *See the pharmacy resource directory (PHRED) for an updated copy of the Tool Book at [email or web address] Current Interpretive Data was last revised 2012. Blood specimen (specimen) 10/19/2017 10:33 PM CHARACTER IMPERSONATOR 10/20/2017 [facility] - 10/20/2017 12:23 AM CHARACTER IMPERSONATOR us Sarah Barfield MD LAB BLOOD ORDERABLES Fi nal Result [facility] Department [place] [address] * (ABNORMAL) CBC without differential (10/19/2017 10:33 PM CHARACTER IMPERSONATOR) [facility] Signature WBC 14.95(H) 3.80 - 9.90 K/cumm [facility] RBC 3.60(L) 4.30 - 5.80 M/cumm [facility] Hgb 11.5(L) 13.0 - 17.5 g/dL [facility] Hct 32.8(L) 38.9 - 50.3 % [facility] MCV 91.1 81.3 - 96.4 fL [facility] MCH 31.9 27.1 - 33.3 pg [facility] MCHC 35.1 32.3 - 35.7 g/dL [facility] RDW CV 17.3(H) 11.1 - 14.9 % [facility] RDW SD 56.4(H) 35.7 - 48.1 fL [facility] NRBC 0.5(H) 0.0 - 0.2 % [facility] NRBC abs 0.07(H) 0.00 - 0.01 K/cumm [facility] Plt 109(L) 150 - 400 K/cumm [facility] MPV 11.5 9.1 - 12.3 fL [facility] Blood specimen (specimen) 10/19/2017 10:33 PM CHARACTER IMPERSONATOR 10/20/2017 12:03 AM CHARACTER IMPERSONATOR Narrative [facility] - 10/20/2017 12:10 AM CHARACTER IMPERSONATOR us Sarah Barfield MD LAB BLOOD ORDERABLES Fi nal Result [facility] [place] [address] * CT Chest W Contrast (10/19/2017 2:03 PM CHARACTER IMPERSONATOR) Anatomical Region Laterality Modality Body N/A Computed Tomogra phy 10/19/2017 2:03 PM CHARACTER IMPERSONATOR Narrative 10/19/2017 4:30 PM CHARACTER IMPERSONATOR ABDOULAYE CALERO M.D. LIZZY LOWRY M.D. FINAL REPORT The radiology attending physician has personally reviewed this study, and has reviewed and/or edited this written report and agrees with it. ACC# ??Date Time ??Exam [id number] Oct 19, 2017 08:03:[address] Chest with contrast EXAMINATION: ??CT of the chest with intravenous contrast. 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 ??Now presents with dyspnea and concern for pulmonary embolism.. TECHNIQUE: Transaxial computed tomographic images of the chest with 90 mL of Optiray 350 intravenous contrast according to pulmonary embolism protocol. ??No immediate complications following intravenous contrast administration. Comparison: Comparison is made to the PET/CT examination on 04/05/2017. FINDINGS: There is a port type central venous catheter with the tip terminating in the right atrium. ??Adjacent to the tip of this fracture there is a filling defect that measures 1.7 x 2.2 cm. ??This is likely a catheter associated thrombus that extends to the inferior vena cava. There is a large filling defect in the right pulmonary artery with extension to the right lower lobe pulmonary artery branch vessels. The lung parenchyma is normal. No pulmonary edema. ??No pneumothorax or pleural effusion. No mediastinal, hilar, or axillary lymphadenopathy. Heart size normal. No pericardial effusion. The aorta is normal in course and caliber. There are changes of liver transplant with multiple metallic clips seen in the right edge of the liver. ??The spleen is surgically absent. ??The bladder. No lytic or blastic osseous lesions. IMPRESSION: ??1. Large pulmonary embolism in the right pulmonary artery with extension to the right lower lobe pulmonary artery branch vessel with right heart strain. 2. Large filling defect adjacent to the central venous catheter tip in the right atrium with extension to the inferior vena cava. Dr. Lowry discussed these findings with Dr. Donaldson at 8:20 AM at 10/19/2017. Electronically signed by: Abdoulaye Calero M.D. Requested By: ADOLFO CORDOVA M.D. Dictated By: ?? LIZZY LOWYR M.D. ??on Oct 19 2017 10:26A This document has been electronically signed by: ABDOULAYE CALERO M.D. on Oct 19 2017 10:28A [id number] ARROYO M.D. FINAL REPORT The radiology attending physician has personally reviewed this study, and has reviewed and/or edited this written report and agrees with it. Attending: ??BERNADETTE, ??ANITA Requesting: ??TASHA, ??ADOLFO Requesting Fax: ?? Attending Fax: ?? Attending ID: ??[id number] Requesting ID: ??[id number] Report To 1 ID: ??[id number] ? Report To 1 Name: ??, ?? Report To 1 FAX: ?? NextGen Order #: ?? Procedure Note Miscellaneous, Not In File - 10/19/2017 ABDOULAYE CALERO M.D. LIZZY LOWRY M.D. FINAL REPORT The radiology attending physician has personally reviewed this study, and has reviewed and/or edited this written report and agrees with it. ACC# Date Time Exam [id number] Oct 19, 2017 08:03:[id number] Chest with contrast EXAMINATION: CT of the chest with intravenous contrast. 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 Now presents with dyspnea and concern for pulmonary embolism.. TECHNIQUE: Transaxial computed tomographic images of the chest with 90 mL of Optiray 350 intravenous contrast according to pulmonary embolism protocol. No immediate complications following intravenous contrast administration. Comparison: Comparison is made to the PET/CT examination on 04/05/2017. FINDINGS: There is a port type central venous catheter with the tip terminating in the right atrium. Adjacent to the tip of this fracture there is a filling defect that measures 1.7 x 2.2 cm. This is likely a catheter associated thrombus that extends to the inferior vena cava. There is a large filling defect in the right pulmonary artery with extension to the right lower lobe pulmonary artery branch vessels. The lung parenchyma is normal. No pulmonary edema. No pneumothorax or pleural effusion. No mediastinal, hilar, or axillary lymphadenopathy. Heart size normal. No pericardial effusion. The aorta is normal in course and caliber. There are changes of liver transplant with multiple metallic clips seen in the right edge of the liver. The spleen is surgically absent. The bladder. No lytic or blastic osseous lesions. IMPRESSION: 1. Large pulmonary embolism in the right pulmonary artery with extension to the right lower lobe pulmonary artery branch vessel with right heart strain. 2. Large filling defect adjacent to the central venous catheter tip in the right atrium with extension to the inferior vena cava. Dr. Lowry discussed these findings with Dr. Donaldson at 8:20 AM at 10/19/2017. Electronically signed by: Abdoulaye Calero M.D. Requested By: ADOLFO CORDOVA M.D. Dictated By: LIZZY LOWRY M.D. on Oct 19 2017 10:26A This document has been electronically signed by: ABDOULAYE CALERO M.D. on Oct 19 2017 10:28A [id number] ARROYO M.D. FINAL REPORT The radiology attending physician has personally reviewed this study, and has reviewed and/or edited this written report and agrees with it. Attending: ANITA GILLESPIE Requesting: ADOLFO CORDOVA Requesting Fax: Attending Fax: Attending ID: [id number] Requesting ID: [id number] Report To 1 ID: [id number] Report To 1 Name: , Report To 1 FAX: NextGen Order #: Adolfo Cordova MD IM CT PROCEDURES Final Res ult * MRI Brain W WO Contrast (10/19/2017 1:50 PM CHARACTER IMPERSONATOR) Anatomical Region Laterality Modality Head and Neck N/A Magnetic Resonan ce 10/19/2017 1:50 PM CHARACTER IMPERSONATOR Narrative 10/20/2017 3:00 AM CHARACTER IMPERSONATOR RACHEL LEMOS M.D. ROBERTA MORAN M.D. FINAL REPORT The radiology attending physician has personally reviewed this study, and has reviewed and/or edited this written report and agrees with it. ACC# ??Date Time ??Exam [id number] Oct 19, 2017 07:50:00 [id number] MRI Brain wo& with contrast EXAMINATION: ??Magnetic resonance imaging (MRI) of the brain and brainstem without and with contrast HISTORY: 22-year-old man with history of liver transplant complicated by posttransplant lymphoproliferative disorder now presents with headache and new onset blurry vision. TECHNIQUE: Multiplanar multi-weighted MRI of the brain and brainstem was performed without and with intravenous contrast using the general brain protocol. Contrast information: 10 mL Dotarem COMPARISON: None available. FINDINGS: There is pachymeningeal thickening and enhancement better appreciated on coronal images. There is mild inferior displacement of the cerebellar tonsils. There are bilateral subdural effusion with no internal acute hemorrhage. There is inferior displacement of the floor of third ventricle along with mild sagging of brain stem. There is mild enhancement of cranial nerves VII and VIII. The mamillopontine distance measures as 4mm. All these findings are consistent with intracranial hypotension. The scalp and calvarium are normal. ?? The superior sagittal sinus demonstrates normal venous flow. ??The corpus callosum is normal in shape and signal intensity. ??The pituitary and sella are normal. ?? Diffusion weighted images reveal no hyperintensities to suggest acute cerebral infarction. ??The susceptibility weighted sequences reveal no evidence of acute or chronic hemorrhage. ??The ventricles are normal in size and position without evidence of hydrocephalus . ??There are no intracranial masses. The paranasal sinuses are normal. ??The visualized portions of the mastoids are unremarkable. ??The orbits appear normal. ??Normal flow voids are demonstrated in the carotid arteries and basilar artery. IMPRESSION: ??1. Pachymeningeal thickening and enhancement with low lying tonsils, depression of floor of third ventricle, sagging of brain stem and bilateral subdural effusions are seen in the setting of intracranial hypotension. 2. ??No acute intracranial infarction or hemorrhage. Electronically signed by: Rachel Lemos M.D. Requested By: ADOLOF CORDOVA M.D. Dictated By: ?? ROBERTA MORAN M.D. ??on Oct 19 2017 ??9:19A This document has been electronically signed by: RACHEL LEMOS M.D. on Oct 19 2017 ??8:58P [id number] CHAPA M.D. FINAL REPORT The radiology attending physician has personally reviewed this study, and has reviewed and/or edited this written report and agrees with it. Attending: ??BERNADETTE, ??ANITA Requesting: ??TASHA, ??ADOLFO Requesting Fax: ?? Attending Fax: ?? Attending ID: ??[id number] Requesting ID: ??[id number] Report To 1 ID: ??[id number] ? Report To 1 Name: ??, ?? Report To 1 FAX: ?? NextGen Order #: ?? Procedure Note Miscellaneous, Not In File - 10/19/2017 RACHEL LEMOS M.D. ROBERTA MORAN M.D. FINAL REPORT The radiology attending physician has personally reviewed this study, and has reviewed and/or edited this written report and agrees with it. 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 TECHNIQUE: Multiplanar multi-weighted MRI of the brain and brainstem was performed without and with intravenous contrast using the general brain protocol. Contrast information: 10 mL Dotarem COMPARISON: None available. FINDINGS: There is pachymeningeal thickening and enhancement better appreciated on coronal images. There is mild inferior displacement of the cerebellar tonsils. There are bilateral subdural effusion with no internal acute hemorrhage. There is inferior displacement of the floor of third ventricle along with mild sagging of brain stem. There is mild enhancement of cranial nerves VII and VIII. The mamillopontine distance measures as 4mm. All these findings are consistent with intracranial hypotension. The scalp and calvarium are normal. The superior sagittal sinus demonstrates normal venous flow. The corpus callosum is normal in shape and signal intensity. The pituitary and sella are normal. Diffusion weighted images reveal no hyperintensities to suggest acute cerebral infarction. The susceptibility weighted sequences reveal no evidence of acute or chronic hemorrhage. The ventricles are normal in size and position without evidence of hydrocephalus . There are no intracranial masses. The paranasal sinuses are normal. The visualized portions of the mastoids are unremarkable. The orbits appear normal. Normal flow voids are demonstrated in the carotid arteries and basilar artery. IMPRESSION: 1. Pachymeningeal thickening and enhancement with low lying tonsils, depression of floor of third ventricle, sagging of brain stem and bilateral subdural effusions are seen in the setting of intracranial hypotension. 2. No acute intracranial infarction or hemorrhage. Electronically signed by: Rachel Lemos M.D. Requested By: ADOLFO CORDOVA M.D. Dictated By: ROBERTA MORAN M.D. on Oct 19 2017 9:19A This document has been electronically signed by: RACHEL LEMOS M.D. on Oct 19 2017 8:58P [id number] CHAPA M.D. FINAL REPORT The radiology attending physician has personally reviewed this study, and has reviewed and/or edited this written report and agrees with it. Attending: ANITA GILLESPIE Requesting: ADOLFO CORDOVA Requesting Fax: Attending Fax: Attending ID: [id number] Requesting ID: [id number] Report To 1 ID: [id number] Report To 1 Name: , Report To 1 FAX: NextGen Order #: us Adolfo Cordova MD IM MRI PROCEDURES Final Re sult * Protime-INR (10/19/2017 12:28 PM CHARACTER IMPERSONATOR) PT 11.9 8.5 - 13.0 sec [facility] INR 1.11 0.80 - 1.21 [facility] Comment: Interpretive Data Inpatient therapeutic ranges* Atrial fibrillation ?2.0-3.0 INR Venous thrombo-embolism ?2.0-3.0 INR Bioprosthetic heart valve ?* Mechanical heart valve, bileaflet or tilting disk,aortic position ? 2.0-3.0 INR All other,or bileaflet or tilting disk, in mitral position ? 2.5-3.5 INR *See the pharmacy resource directory (PHRED) for an updated copy of the Tool Book at [email or web address] Current Interpretive Data was last revised 2012. Blood specimen (specimen) 10/19/2017 12:28 PM CHARACTER IMPERSONATOR 10/19/2017 12:38 PM CHARACTER IMPERSONATOR Narrative [facility] - 10/19/2017 1:12 PM CHARACTER IMPERSONATOR Ritchie Donaldson MD LAB BLOOD ORDERABLES Fi nal Result Performing Organization Address [facility] de Phone Number [facility] [place] [address] * (ABNORMAL) aPTT (10/19/2017 12:28 PM CHARACTER IMPERSONATOR) aPTT 130.6(H) 25.0 - 37.0 sec [facility] Comment: Interpretive Data Therapeutic heparin range:60.0 - 94.0 sec based on correlation with therapeutic heparin activity range of 0.3 -0.7 Units/mL. Current interpretive data was last revised on 2011. Blood specimen (specimen) 10/19/2017 12:28 PM CHARACTER IMPERSONATOR 10/19/2017 12:38 PM CHARACTER IMPERSONATOR Narrative [facility] - 10/19/2017 1:12 PM CHARACTER IMPERSONATOR Ritchie Donaldson MD LAB BLOOD ORDERABLES Fi nal Result Performing Organization Address [facility] de Phone Number [facility] Department [place] [employer] [place] [address] * CT Head WO Contrast (10/19/2017 9:34 AM CHARACTER IMPERSONATOR) Anatomical Region Laterality Modality Head and Neck N/A Computed Tomogra phy 10/19/2017 9:34 AM CHARACTER IMPERSONATOR Narrative 10/19/2017 3:11 PM CHARACTER IMPERSONATOR JOAQUIN ADAMS M.D. BINDU CABRAL M.D. FINAL REPORT The radiology attending physician has personally reviewed this study, and has reviewed and/or edited this written report and agrees with it. ACC# ??Date Time ??Exam [id number] Oct 19, 2017 03:34:[id number] Head or Brain w/o cont EXAMINATION: ?? Noncontrast head CT HISTORY: Lymphoma, new diplopia TECHNIQUE: Noncontrast CT of the brain was performed with images acquired from skull base to vertex. COMPARISON: None available. FINDINGS: Topogram demonstrates no lytic lesions or fractures. There is no acute intracranial hemorrhage. Ventricles are of normal size and morphology. No mass effect or midline shift is present. The zazueta-white matter differentiation is normal. The visualized portions of the orbits are normal. The visualized portions of the mastoids are normal. The visualized portions of the paranasal sinuses are normal. No fractures are identified. IMPRESSION: ??No acute intracranial abnormality. Electronically signed by: Joaquin Adams M.D. Requested By: ADOLFO CORDOVA M.D. Dictated By: ?? BINDU CABRAL M.D. ??on Oct 19 2017 ??3:51A This document has been electronically signed by: JOAQUIN ADAMS M.D. on Oct 19 2017 ??9:09A [id number] GARCIA M.D. FINAL REPORT The radiology attending physician has personally reviewed this study, and has reviewed and/or edited this written report and agrees with it. Attending: ??JUANITO, ??DEBORAH Requesting: ??TASHA, ??ADOLFO Requesting Fax: ?? Attending Fax: ?? Attending ID: ??[id number] Requesting ID: ??[id number] Report To 1 ID: ??[id number] ? Report To 1 Name: ??, ?? Report To 1 FAX: ?? NextGen Order #: ?? Procedure Note Miscellaneous, Not In File - 10/19/2017 Stephon GARCIA M.D. FINAL REPORT The radiology attending physician has personally reviewed this study, and has reviewed and/or edited this written report and agrees with it. ACC# Date Time Exam [id number] Oct 19, 2017 03:34:[id number] Head or Brain w/o cont EXAMINATION: Noncontrast head CT HISTORY: Lymphoma, new diplopia TECHNIQUE: Noncontrast CT of the brain was performed with images acquired from skull base to vertex. COMPARISON: None available. FINDINGS: Topogram demonstrates no lytic lesions or fractures. There is no acute intracranial hemorrhage. Ventricles are of normal size and morphology. No mass effect or midline shift is present. The zazueta-white matter differentiation is normal. The visualized portions of the orbits are normal. The visualized portions of the mastoids are normal. The visualized portions of the paranasal sinuses are normal. No fractures are identified. IMPRESSION: No acute intracranial abnormality. Electronically signed by: Joaquin Adams M.D. Requested By: ADOLFO CORDOVA M.D. Dictated By: BINDU CABRAL M.D. on Oct 19 2017 3:51A This document has been electronically signed by: JOAQUIN ADAMS M.D. on Oct 19 2017 9:09A [id number] GARCIA M.D. FINAL REPORT The radiology attending physician has personally reviewed this study, and has reviewed and/or edited this written report and agrees with it. Attending: DEBORAH SOLOMON Requesting: ADOLFO CORDOVA Requesting Fax: Attending Fax: Attending ID: [id number] Requesting ID: [id number] Report To 1 ID: [id number] Report To 1 Name: , Report To 1 FAX: NextGen Order #: Adolfo Cordova MD IMG CT PROCEDURES Final Res ult * XR Chest Pa Lateral 2 Views (10/19/2017 8:58 AM CHARACTER IMPERSONATOR) Anatomical Region Laterality Modality Body, Chest N/A Radiographic Shilpi ging 10/19/2017 8:58 AM CHARACTER IMPERSONATOR Narrative 10/19/2017 5:02 PM CHARACTER IMPERSONATOR Stephon ARROYO M.D. FINAL REPORT The radiology attending physician has personally reviewed this study, and has reviewed and/or edited this written report and agrees with it. ACC# ??Date Time ??Exam [id number] Oct 19, 2017 02:58:00 [id number] Chest 2 views Frontl & ??Lat EXAMINATION: ??2 view chest radiograph IMPRESSION: ??Comparison is made to prior chest radiograph dated 04/28/2017. ??A right internal jugular port catheter remains terminating in the superior caval atrial junction. ??Lungs are clear, without focal consolidation. ??No pleural effusion or pneumothorax. Heart size and mediastinal contours are normal. Again seen are numerous clips in the right upper quadrant, and multiple clips in the left upper quadrant unchanged. Electronically signed by: Abdoulaye Calero M.D. Requested By: ADOLFO CORDOVA M.D. Dictated By: ?? CAMERON MICHAELS M.D. ??on Oct 19 2017 ??3:11A This document has been electronically signed by: ABDOULAYE CALERO M.D. on Oct 19 2017 11:00A [id number] ARROYO M.D. FINAL REPORT The radiology attending physician has personally reviewed this study, and has reviewed and/or edited this written report and agrees with it. Attending: ??BERNADETTE, ??ANITA Requesting: ??TASHA, ??ADOLFO Requesting Fax: ?? Attending Fax: ?? Attending ID: ??[id number] Requesting ID: ??[id number] Report To 1 ID: ??[id number] ? Report To 1 Name: ??, ?? Report To 1 FAX: ?? NextGen Order #: ?? Procedure Note Miscellaneous, Not In File - 10/19/2017 Stephon ARROYO M.D. FINAL REPORT The radiology attending physician has personally reviewed this study, and has reviewed and/or edited this written report and agrees with it. ACC# Date Time Exam [id number] Oct 19, 2017 02:58:00 [id number] Chest 2 views Frontl & Lat EXAMINATION: 2 view chest radiograph IMPRESSION: Comparison is made to prior chest radiograph dated 04/28/2017. A right internal jugular port catheter remains terminating in the superior caval atrial junction. Lungs are clear, without focal consolidation. No pleural effusion or pneumothorax. Heart size and mediastinal contours are normal. Again seen are numerous clips in the right upper quadrant, and multiple clips in the left upper quadrant unchanged. Electronically signed by: Abdoulaye Calero M.D. Requested By: ADOLFO CORDOVA M.D. Dictated By: CAMERON MICHAELS M.D. on Oct 19 2017 3:11A This document has been electronically signed by: ABDOULAYE CALERO M.D. on Oct 19 2017 11:00A [id number] ARROYO M.D. FINAL REPORT The radiology attending physician has personally reviewed this study, and has reviewed and/or edited this written report and agrees with it. Attending: ANITA GILLESPIE Requesting: ADOLFO CORDOVA Requesting Fax: Attending Fax: Attending ID: [id number] Requesting ID: [id number] Report To 1 ID: [id number] Report To 1 Name: , Report To 1 FAX: NextGen Order #: us Adolfo Cordova MD IMG XR PROCEDURES Final Res ult * Lactate POC (10/19/2017 3:32 AM CHARACTER IMPERSONATOR) [facility] Lactate POC i-STAT 1.8 0.7 - 2.2 mmol/L [facility] Blood specimen (specimen) 10/19/2017 3:32 AM CHARACTER IMPERSONATOR 10/19/2017 3:32 AM CHARACTER IMPERSONATOR Narrative [facility] - 10/19/2017 4:10 AM CHARACTER IMPERSONATOR us Notinfile Unknown LAB BLOOD ORDERABLES Final Res ult [facility] [place] [address] * (ABNORMAL) D-dimer, quantitative (10/19/2017 3:17 AM CHARACTER IMPERSONATOR) [facility] D-dimer 540(H) 110 - 230 ng/mL D-DU [facility] Comment: Interpretive Data This D-dimer test is approved by the FDA to exclude suspected PE and DVT in outpatients when the result is <230 ng/mL in conjunction with a pre-test probability score of low or moderate using the Wells criteria. Current Interpretive Data was last revised on 2012. Blood specimen (specimen) 10/19/2017 3:17 AM CHARACTER IMPERSONATOR 10/19/2017 3:37 AM CHARACTER IMPERSONATOR Narrative [facility] - 10/19/2017 4:35 AM CHARACTER IMPERSONATOR us Adolfo Cordova MD LAB BLOOD ORDERABLES Final Result [facility] Department [place] [address] * (ABNORMAL) Manual Differential (10/19/2017 3:17 AM CHARACTER IMPERSONATOR) Neutrophils 8.2 % [facility] Lymphocytes 36.4 % [facility] Monos 42.7 % [facility] Eosinophils 2.7 % [facility] Basophil pct 2.7 % [facility] Metamyelocyte pct 3.7 % [facility] Myelocyte pct 1.8 % [facility] Promyelocyte pct 1.8 % [facility] Platelet estimate Decreased (A) [facility] Anisocytosis 3+(A) [facility] Macrocytes > 15/HPF(A) [facility] WBC counted 110 Cells [facility] RBC morphology Present(A ) [facility] Neutrophil abs 0.97(L) 1.70 - 6.50 K/cumm [facility] Lymphs, abs 4.30(H) 0.80 - 3.30 K/cumm [facility] Monos, abs 5.04(H) 0.20 - 0.80 K/cumm [facility] Eosinophils, abs 0.32 0.00 - 0.50 K/cumm [facility] Basophils, abs 0.32(H) 0.00 - 0.10 K/cumm [facility] Immature granulocyte, abs 0.86(H) 0.00 - 0.10 K/cumm [facility] Blood specimen (specimen) 10/19/2017 3:17 AM CHARACTER IMPERSONATOR 10/19/2017 3:45 AM CHARACTER IMPERSONATOR Narrative [facility] - 10/19/2017 4:19 AM CHARACTER IMPERSONATOR us Adolfo Cordova MD LAB BLOOD ORDERABLES Final Result Performing Organization Address [facility] Co de Phone Number [facility] [place] [address] * (ABNORMAL) Hepatic function panel (10/19/2017 3:17 AM CHARACTER IMPERSONATOR) Pathologist [facility] AST 24 10 - 50 Units/L [facility] ALT 46 7 - 55 Units/L [facility] Alk phos 164(H) 40 - 130 Units/L [facility] Bilirubin, total 0.2 0.1 - 1.2 mg/dL [facility] Bilirubin, direct <0.2(L) 0.1 - 0.3 mg/dL [facility] Protein, pl 5.7(L) 6.5 - 8.5 g/dL [facility] Albumin 3.7 3.5 - 5.0 g/dL [facility] Blood specimen (specimen) 10/19/2017 3:17 AM CHARACTER IMPERSONATOR 10/19/2017 3:40 AM CHARACTER IMPERSONATOR Narrative [facility] - 10/19/2017 4:17 AM CHARACTER IMPERSONATOR us Adolfo Cordova MD LAB BLOOD ORDERABLES Final Result Performing Organization Address [facility] de Phone Number [facility] Department [place] [address] * (ABNORMAL) Basic metabolic panel (10/19/2017 3:17 AM CHARACTER IMPERSONATOR) Pathologist [facility] Sodium 141 135 - 145 mmol/L [facility] Potassium, pl 4.1 3.3 - 4.9 mmol/L [facility] Chloride 106 97 - 110 mmol/L [facility] CO2 27 22 - 32 mmol/L [facility] BUN 8 8 - 25 mg/dL [facility] Glucose 90 70 - 199 mg/dL [facility] [...] interpretive data was last revised 2017. Creatinine 0.75(L) 0.80 - 1.30 mg/dL [facility] Calcium 9.0 8.5 - 10.3 mg/dL [facility] Anion gap 8 2 - 15 mmol/L [facility] Blood specimen (specimen) 10/19/2017 3:17 AM CHARACTER IMPERSONATOR 10/19/2017 3:40 AM CHARACTER IMPERSONATOR Narrative [facility] - 10/19/2017 4:05 AM CHARACTER IMPERSONATOR us Adolfo Cordova MD LAB BLOOD ORDERABLES Final Result Performing Organization Address [facility] de Phone Number [facility] [place] [address] * Lipase (10/19/2017 3:17 AM CHARACTER IMPERSONATOR) Lipase 27 10 - 99 Units/L [facility] Blood specimen (specimen) 10/19/2017 3:17 AM CHARACTER IMPERSONATOR 10/19/2017 3:40 AM CHARACTER IMPERSONATOR Narrative [facility] - 10/19/2017 4:05 AM CHARACTER IMPERSONATOR us Adolfo Cordova MD LAB BLOOD ORDERABLES Final Result [facility] Department [place] [employer] [place] [address] * aPTT (10/19/2017 3:17 AM CHARACTER IMPERSONATOR) aPTT 26.8 25.0 - 37.0 sec [facility] Comment: Interpretive Data Therapeutic heparin range:60.0 - 94.0 sec based on correlation with therapeutic heparin activity range of 0.3 -0.7 Units/mL. Current interpretive data was last revised on 2011. Blood specimen (specimen) 10/19/2017 3:17 AM CHARACTER IMPERSONATOR 10/19/2017 3:37 AM CHARACTER IMPERSONATOR Narrative [facility] - 10/19/2017 3:55 AM CHARACTER IMPERSONATOR us Adolfo Cordova MD LAB BLOOD ORDERABLES Final Result [facility] [place] [address] * Protime-INR (10/19/2017 3:17 AM CHARACTER IMPERSONATOR) PT 10.8 8.5 - 13.0 sec [facility] INR 1.01 0.80 - 1.21 [facility] Comment: Interpretive Data Inpatient therapeutic ranges* Atrial fibrillation ?2.0-3.0 INR Venous thrombo-embolism ?2.0-3.0 INR Bioprosthetic heart valve ?* Mechanical heart valve, bileaflet or tilting disk,aortic position ? 2.0-3.0 INR All other,or bileaflet or tilting disk, in mitral position ? 2.5-3.5 INR *See the pharmacy resource directory (PHRED) for an updated copy of the Tool Book at [email or web address] Current Interpretive Data was last revised 2012. Blood specimen (specimen) 10/19/2017 3:17 AM CHARACTER IMPERSONATOR 10/19/2017 3:37 AM CHARACTER IMPERSONATOR Narrative [facility] - 10/19/2017 3:55 AM CHARACTER IMPERSONATOR us Adolfo Cordova MD LAB BLOOD ORDERABLES Final Result [facility] [place] [address] * (ABNORMAL) CBC with auto differential (10/19/2017 3:17 AM CHARACTER IMPERSONATOR) Pathologist [facility] WBC 11.81(H) 3.80 - 9.90 K/cumm [facility] RBC 3.95(L) 4.30 - 5.80 M/cumm [facility] Hgb 12.7(L) 13.0 - 17.5 g/dL [facility] Hct 35.2(L) 38.9 - 50.3 % [facility] MCV 89.1 81.3 - 96.4 fL [facility] MCH 32.2 27.1 - 33.3 pg [facility] MCHC 36.1(H) 32.3 - 35.7 g/dL [facility] RDW CV 16.3(H) 11.1 - 14.9 % [facility] RDW SD 51.8(H) 35.7 - 48.1 fL [facility] Plt 82(L) 150 - 400 K/cumm [facility] MPV 12.0 9.1 - 12.3 fL [facility] NRBC 0.4(H) 0.0 - 0.2 % [facility] NRBC abs 0.05(H) 0.00 - 0.01 K/cumm [facility] Blood specimen (specimen) 10/19/2017 3:17 AM CHARACTER IMPERSONATOR 10/19/2017 3:40 AM CHARACTER IMPERSONATOR Narrative [facility] - 10/19/2017 4:19 AM CHARACTER IMPERSONATOR Adolfo Cordova MD LAB BLOOD ORDERABLES Final Result [facility] [place] [address] * Glucose POC (10/19/2017 3:17 AM CHARACTER IMPERSONATOR) Pathologist [facility] Glucose, POC 89 70 - 199 mg/dL [facility] Blood specimen (specimen) 10/19/2017 3:17 AM CHARACTER IMPERSONATOR 10/19/2017 3:17 AM CHARACTER IMPERSONATOR Narrative [facility] - 10/19/2017 3:35 AM CHARACTER IMPERSONATOR us Notinfile Unknown POINT OF CARE TEST ORDERABLES Final Result Performing Organization Address City/State/[facility] Co de Phone Number [facility] [place] [address] documented in this encounter Visit Diagnoses Not on filedocumented in this encounter Care Teams Radiology Rn Relationship Specialty Start Date End Date Kali Cruz MD [address] [facility] [address] [place] [address] PCP - General 04/09/17 03/21/19 documented as of this encounter
--- OUTSIDE RECORDS SUMMARY | 2024-10-28 06:28 | XMS_ITS | Encounter Summary ---
Author Organization [facility] Healthcare Address [address] [place] [address] Care Team Providers Care Baling Press Operator Name Role Phone Kali Cruz MD Primary Care Provider [phone] Encounter Details Date Type Department Care Team (Latest Contact Info) Description 10/31/2017 12:20 PM DIE REPAIRER FORGING - 10/31/2017 10:16 PM [facility] Hospital Encounter [facility] INTERIM [phone] Anita Gillespie MD [address] [facility] [address] [place], [place] [id number] Discharge Disposition: Discharge to home or self care Social History Tobacco Use Types Packs/Day Years Used Date Smoking Tobacco: Never Assessed Sex and Gender Information Value Date Recorded Sex Assigned at Not on file Legal Sex Male 6:28 AM DIE REPAIRER FORGING Gender Identity Not on file Sexual Orientation Straight 08/22/2021 9: 23 AM CDT documented as of this encounter Last Filed Vital Signs Vital Sign Reading Time Taken Comments Blood Pressure 109/64 10/31/2017 1:40 PM DIE REPAIRER FORGING Pulse 70 10/31/2017 1:40 PM DIE REPAIRER FORGING Temperature - - Respiratory Rate - - Oxygen Saturation 97% 10/31/2017 1:40 PM DIE REPAIRER FORGING Inhaled Oxygen Concentration - - Weight 57.1 kg (125 lb 12.7 oz) 10/31/2017 1:40 PM DIE REPAIRER FORGING Height 172.7 cm (5' 8 ) 10/31/2017 1:40 PM DIE REPAIRER FORGING Body Mass Index 19.13 10/31/2017 1:40 PM DIE REPAIRER FORGING documented in this encounter Medications at Time [...] on filedocumented in this encounter Care Teams Baling Press Operator Relationship Specialty Start Date End Date Kali Cruz MD [address] [facility] [address] [facility] [address] [place] [address] PCP - General 04/09/17 03/21/19 documented as of this encounter
--- OUTSIDE RECORDS SUMMARY | 2024-10-28 06:28 | XMS_ITS | Encounter Summary ---
Author Organization [facility] Address [address] [place] [address] Care Team Providers Care Inventory Analyst Name Role Phone Kali Cruz MD Primary Care Provider [phone] Encounter Details Date Type Department Care Team (Latest Contact Info) Description 12/17/2017 7:40 PM MANAGER LINUX - 12/21/2017 1:59 PM [facility] Hospital Encounter [facility] ADMIT [address] [place] [address] Anita Gillespie MD [address] [facility] [address] [place] [address] Vanessa ThompsonnCindy MD [address] [facility] [address] [place] [address] Irina Saleem MD [address] [facility] [address] [place] [address] Flory Cary MD [address] [facility] [address] [place] [address] Discharge Disposition: Discharge to home or self care Social History Tobacco Use Types Packs/Day Years Used Date Smoking Tobacco: Never Sex and Gender Information Value Date Recorded Sex Assigned at Not on file 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 LINUX Gender Identity Not on file Sexual Orientation Straight 08/22/2021 9: 23 AM CDT documented as of this encounter Last Filed Vital Signs Vital Sign Reading Time Taken Comments Blood Pressure 101/56 12/21/2017 12:17 PM MANAGER LINUX Pulse 86 12/21/2017 12:17 PM MANAGER LINUX Temperature - - Respiratory Rate - - Oxygen Saturation 100% 12/21/2017 12: 17 PM MANAGER LINUX Inhaled Oxygen Concentration - - Weight 56.6 kg (124 lb 12.5 oz) 12/21/2017 5:00 AM MANAGER LINUX Height 172.7 cm (5' 8 ) 12/18/2017 1:16 AM MANAGER LINUX Body Mass Index 18.97 12/18/2017 1:16 AM MANAGER LINUX documented in this encounter Medications at Time [...] documented in this encounter H&P Notes * Miscellaneous, Not In File - 12/17/2017 6:00 AM CST Patient: ADI NICHOLS Reg No: [id number] H #: [id number] Admit Dt.: 12/17/2017 : 1995 Room No: 36151-09 Attending: Cindy Castro M.D. Dictating: Cindy Castro M.D. ADMISSION HISTORY AND PHYSICAL FACILITY ID: [facility] DATE OF SERVICE: 12/18/2017 This is a patient of Dr. Gillespie who is directly admitted from the [facility]. CHIEF COMPLAINT Fatigue. ADMITTING DIAGNOSIS Neutropenic fever. ADDITIONAL DIAGNOSES Includes pancytopenia. HISTORY OF PRESENT ILLNESS This is a 22-year-old gentleman whose electronic medical record is independently reviewed by me and is summarized as follows. 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 He initially was treated with R-CHOP x1 cycle and most recently cycle 5, day 1, EPOCH-R on 12/18/2017 and Cytoxan on 12/12/2017. He presented to [facility] as scheduled for packed red blood cells and reported fever. He said he had a fever overnight approximately 5:00 p.m. and then again the morning of the . He endorses fatigue with dyspnea on exertion but no cough, no sputum production, no itchy or runny eyes. No sore throat. He does have oral lesions that have just started. He reports no chest pain, palpitations, dizziness, or lightheadedness. No abdominal pain, no diarrhea. He reports receiving Neulasta on December 13. In the [facility] his temperature was 39.5, blood pressure 117/66, heart rate 121, respiratory rate 20, saturating 99% on room air. Labs as independently reviewed by me: His white count was 0.4, hemoglobin of 7.4, platelets of 41. Sodium 137, potassium 4.2, chloride of 102, CO2 of 28, BUN of 7, creatinine of 0.67, glucose of 121. ALT, AST of 86 and 30 respectively. Blood cultures pending x2. Urine clear with a specific gravity of 1.010, otherwise negative. He underwent a nasopharyngeal swab which was positive for rhinovirus and enterovirus. In the [facility] he was given IV fluids, cefepime 1 g and vancomycin 1g. PAST MEDICAL HISTORY 1. Autoimmune hepatitis. 2. Orthotopic liver transplant x2 in 1998. 3. EBV positive posttransplant lymphoproliferative disorder. 4. R-CHOP x1 cycle followed by EPOCH-R status post cycle 5, day 1, 12/08/2017, status post Cytoxan 12/12/2017. 5. Intrathecal methotrexate, cycle 3, 10/06/2017, complicated by intracranial hypotension. 6. Bilateral PE diagnosed 10/19/2017 on Eliquis. 7. Hospitalized 11/28 to 12/05 with neutropenic fever workup positive for rhinovirus and enterovirus. 8. History of CMV viremia. 9. Hypogammaglobulinemia. 10. ITP status post splenectomy in 2012. ALLERGIES He has no known drug allergies. MEDICINES ON ADMISSION Include the followin. 450 mg q.12 hours. 2. Fluconazole 100 mg daily. 3. Bactrim double strength 1, 3 times a week Wednesday, Wednesday, Wednesday. 4. Tacrolimus 0.5 mg q.12 hours. 5. Apixaban 5 mg b.i.d. 6. Omeprazole 20 mg daily. 7. Ativan 1 mg q.i.d. p.r.n. 8. Zofran 8 mg q.i.d. p.r.n. 9. Compazine 10 mg q.i.d. p.r.n. 10. Prednisone 100 mg b.i.d. with chemo. 11. Dexamethasone 2 mg b.i.d. with chemo on day 3 and 4. SOCIAL HISTORY He is single. He does not have children. Alcohol use is rare. Tobacco use is previously but quit. Drug use is never. FAMILY MEDICAL HISTORY Significant for mother with colorectal cancer. Maternal grandmother with ovarian and breast cancer, a maternal grandfather with non-Hodgkin's lymphoma, and a paternal grandmother with AML. REVIEW OF SYSTEMS As addressed in the history of present illness. All other systems are negative. PHYSICAL EXAM This is a pleasant, chronically ill-appearing 22-year-old gentleman who is seen in his hospital room with his mother present. Temperature 36.7, blood pressure 113/55, heart rate 91, respiratory rate 16, saturating 98% on room air. Height of 68 inches, weight of 59 kg. His BMI is 19. His creatinine clearance is 141 mL/minute. Head, Eyes, Ears, Nose, and Throat: His head with global alopecia. Oropharynx reportedly with 2 sores which I am unable to visualize at this time. Pupils are equal, round, reactive to light. Extraocular muscles are intact. Neck: No lymphadenopathy, thyromegaly, or bruit. Lungs: Clear to auscultation. Cardiovascular: Regular rate and rhythm. Normal S1, S2. No S3, S4. No murmurs. Chest: Right subclavian Port-A-Cath in place. GI: Positive surgical scars. Positive bowel sounds. Soft, nontender. Lymphatic: No edema. Skin: With tattoos. Neurologic: Nonfocal. Musculoskeletal: Nontender without deformity. Psychiatric: No suicidal or homicidal ideation. No auditory or visual hallucinations. ASSESSMENT AND PLAN 1. 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 He is being admitted for neutropenic fever. He is status post cefepime and vancomycin in the [facility]. His creatinine clearance is 141 mL/minute and he will be on vancomycin 1 g IV piggyback q.8 hours and cefepime 1 g IV piggyback q.8 hours. He does have blood cultures that are pending and he appears nontoxic at this time. 2. Orthotopic liver transplant. Will continue his tacrolimus and will check a trough in the morning. Will also continue his acyclovir, fluconazole, and Bactrim. 3. Posttransplant lymphoproliferative disorder. I defer to the day team in terms of contacting Oncology and when he is due for his next chemotherapy. 4. Bilateral pulmonary emboli diagnosed October of 2017 on Eliquis. Continue present management. 5. Pancytopenia. He has been consented for blood products and I have ordered a type and screen. 6. Nausea and vomiting. Will continue his Zofran and Compazine. 7. DVT prophylaxis. The patient is already on Eliquis for bilateral pulmonary emboli October 2017. Please note that Internal Medicine admission orders have been placed by me. Electronically Authenticated and Edited by: Cindy Castro MD On 12/21/2017 11:38 PM MANAGER LINUX Cindy Castro M.D. AVD:[facility] #[id number] Editing MT: TD: 12/18/2017 06:13 AM cc: Cindy Castro M.D. GER LINUX documented in this encounter Plan of Treatment Scheduled Procedures Name Priority Associated Diagnoses Date/Ti mn COLONOSCOPY Encounter for screening for colorectal cancer in high risk patient Family history of rectal cancer documented as of this encounter Procedures Procedure Name Priority Date/Time Associated Diagnosis Comments CT ABDOMEN PELVIS W CONTRAST Routine 12/21/2017 12:20 AM MANAGER LINUX DISCHARGE LABORATORY CUMULATIVE REPORT 12/21/2017 12:00 AM MANAGER LINUX CBC WITH AUTO DIFFERENTIAL After X-Ray 12/20/2017 8:51 PM MANAGER LINUX MANUAL DIFFERENTIAL After X-Ray 12/20/2017 8 :51 PM MANAGER LINUX COMPREHENSIVE METABOLIC PANEL After X-Ray 12/20/2017 8:51 PM MANAGER LINUX VANCOMYCIN LEVEL TROUGH After X-Ray 12/20/2017 10:33 AM MANAGER LINUX CBC WITH AUTO DIFFERENTIAL After X-Ray 12/19/2017 8:54 PM MANAGER LINUX MANUAL DIFFERENTIAL After X-Ray 12/19/2017 8 :54 PM MANAGER LINUX BLOOD CULTURE RTNm 12/19/2017 7:03 PM MANAGER LINUX BLOOD CULTURE RTNm 12/19/2017 7:03 PM MANAGER LINUX TACROLIMUS LEVEL, TROUGH After X-Ray 12/19/2017 8:17 AM MANAGER LINUX CBC WITH AUTO DIFFERENTIAL After X-Ray 12/19/2017 8:17 AM MANAGER LINUX MANUAL DIFFERENTIAL After X-Ray 12/19/2017 8 :17 AM MANAGER LINUX TYPE AND SCREEN STAT 12/18/2017 9:59 PM MANAGER LINUX VANCOMYCIN LEVEL TROUGH After X-Ray 12/18/2017 9:59 PM MANAGER LINUX TRANSFUSION EVENT Routine 12/18/2017 6:1 5 PM MANAGER LINUX CBC WITHOUT DIFFERENTIAL After X-Ray 12/18/2017 8:12 AM MANAGER LINUX BASIC METABOLIC PANEL After X-Ray 12/18/2017 8:12 AM MANAGER LINUX CBC WITH AUTO DIFFERENTIAL Routine Gen Lab 12/18/2017 5:22 AM MANAGER LINUX MANUAL DIFFERENTIAL Routine Gen Lab 12/18/2017 5 :22 AM MANAGER LINUX TYPE AND SCREEN Routine Gen Lab 12/18/2017 5:22 AM MANAGER LINUX XR CHEST PA LATERAL 2 VIEWS Routine 12/18/2017 2:57 AM MANAGER LINUX URINALYSIS Routine Gen Lab 12/17/2017 11:11 PM MANAGER LINUX RESPIRATORY PATHOGEN PANEL RTNm 12/17/2017 9:25 PM MANAGER LINUX INFLUENZA A/B PCR RTNm 12/17/2017 9:2 5 PM MANAGER LINUX CBC WITH AUTO DIFFERENTIAL STAT 12/17/2017 9:25 PM MANAGER LINUX MANUAL DIFFERENTIAL STAT 12/17/2017 9 :25 PM MANAGER LINUX BLOOD CULTURE RTNm 12/17/2017 9:25 PM MANAGER LINUX BLOOD CULTURE RTNm 12/17/2017 9:25 PM MANAGER LINUX TYPE AND SCREEN STAT 12/17/2017 9:25 PM MANAGER LINUX PHOSPHORUS STAT 12/17/2017 9:25 PM MANAGER LINUX MAGNESIUM STAT 12/17/2017 9:25 PM MANAGER LINUX LACTATE, PLASMA STAT 12/17/2017 9:25 PM MANAGER LINUX COMPREHENSIVE METABOLIC PANEL STAT 12/17/2017 9:25 PM MANAGER LINUX documented in this encounter Results * CT Abdomen Pelvis W Contrast (12/21/2017 12:20 AM MANAGER LINUX) Anatomical Region Laterality Modality Body N/A Computed Tomogra phy 12/21/2017 12:2 0 AM MANAGER LINUX Narrative 12/21/2017 3:41 PM MANAGER LINUX RUTH ANN MENESES M.D. LENO RUDOLPH M.D. FINAL REPORT The radiology attending physician has personally reviewed this study, and has reviewed and/or edited this written report and agrees with it. ACC# ??Date Time ??Exam [id number] Dec 20, 2017 18:20:[id number] Abd & ??Pelvis with cont EXAMINATION: ??Computed tomography of the abdomen and pelvis with intravenous contrast HISTORY: 22-year-old man status post orthotopic liver transplant in 1998 for autoimmune hepatitis, with post transplant lymphoproliferative disorder, presenting with neutropenia and fever. TECHNIQUE: ??Transaxial computed tomographic images of the abdomen and pelvis were obtained with intravenous contrast according to the standard protocol after the uneventful administration of 100 mL Opti-Ray 350 intravenous contrast. COMPARISON: Comparison is made to prior chest CT dated 10/19/2017. FINDINGS: ?? There is a partially visualized central venous catheter tip in the right atrium. ??Hypo-density adjacent to the catheter tip may be secondary to thrombus or flow-related artifact, similar to the prior study dated 10/19/2017. ??Heart size is normal. There are postoperative changes of a orthotopic left hemiliver transplant. ??There are small bowel staple lines in the right upper quadrant. ??The spleen and gallbladder are surgically absent. ??The pancreas is normal. ??The adrenal glands and kidneys are normal. ??The bladder is decompressed. ??There are no dilated loops of small or large bowel to suggest an obstruction. ??No free intraperitoneal fluid or gas. ??There are numerous retroperitoneal and bilateral inguinal lymph nodes which are not enlarged by CT criteria.. There is no suspicious osseous lesion. IMPRESSION: ??1. ??Status post orthotopic liver transplant. ??No CT findings to explain the patient's neutropenia or fevers. 2. Unchanged amount of thrombus associated with central venous catheter tip within the right atrium. Electronically signed by: Ruth Ann Meneses M.D. Requested By: FLORY CARY M.D. Dictated By: ?? LENO RUDOLPH M.D. ??on Dec 20 2017 ??6:48P This document has been electronically signed by: RUTH ANN MENESES M.D. on Dec 21 2017 ??9:39A [id number] DIANA M.D. FINAL REPORT The radiology attending physician has personally reviewed this study, and has reviewed and/or edited this written report and agrees with it. Attending: ??MATTHEW, ??VANESSA Requesting: ??JACKELIN, ??FLORY Requesting Fax: ?? Attending Fax: ?? Attending ID: ??[id number] Requesting ID: ??[id number] Report To 1 ID: ??[id number] ? Report To 1 Name: ??, ?? Report To 1 FAX: ?? NextGen Order #: ?? Procedure Note Miscellaneous, Not In File - 12/21/2017 RUTH ANN MENESES M.D. LENO RUDOLPH M.D. FINAL REPORT The radiology attending physician has personally reviewed this study, and has reviewed and/or edited this written report and agrees with it. ACC# Date Time Exam [id number] Dec 20, 2017 18:20:[id number] Abd & Pelvis with cont EXAMINATION: Computed tomography of the abdomen and pelvis with intravenous contrast HISTORY: 22-year-old man status post orthotopic liver transplant in 1998 for autoimmune hepatitis, with post transplant lymphoproliferative disorder, presenting with neutropenia and fever. TECHNIQUE: Transaxial computed tomographic images of the abdomen and pelvis were obtained with intravenous contrast according to the standard protocol after the uneventful administration of 100 mL Opti-Ray 350 intravenous contrast. COMPARISON: Comparison is made to prior chest CT dated 10/19/2017. FINDINGS: There is a partially visualized central venous catheter tip in the right atrium. Hypo-density adjacent to the catheter tip may be secondary to thrombus or flow-related artifact, similar to the prior study dated 10/19/2017. Heart size is normal. There are postoperative changes of a orthotopic left hemiliver transplant. There are small bowel staple lines in the right upper quadrant. The spleen and gallbladder are surgically absent. The pancreas is normal. The adrenal glands and kidneys are normal. The bladder is decompressed. There are no dilated loops of small or large bowel to suggest an obstruction. No free intraperitoneal fluid or gas. There are numerous retroperitoneal and bilateral inguinal lymph nodes which are not enlarged by CT criteria.. There is no suspicious osseous lesion. IMPRESSION: 1. Status post orthotopic liver transplant. No CT findings to explain the patient's neutropenia or fevers. 2. Unchanged amount of thrombus associated with central venous catheter tip within the right atrium. Electronically signed by: Ruth Ann Meneses M.D. Requested By: FLORY CARY M.D. Dictated By: LENO RUDOLPH M.D. on Dec 20 2017 6:48P This document has been electronically signed by: RUTH ANN MENESES M.D. on Dec 21 2017 9:39A [id number] DIANA M.D. FINAL REPORT The radiology attending physician has personally reviewed this study, and has reviewed and/or edited this written report and agrees with it. Attending: VANESSA THOMPSON Requesting: FLORY CARY Requesting Fax: Attending Fax: Attending ID: [id number] Requesting ID: [id number] Report To 1 ID: [id number] Report To 1 Name: , Report To 1 FAX: NextGen Order #: Flory Cary MD IMG CT PROCEDURES Fin al Result * DISCHARGE LABORATORY CUMULATIVE REPORT (12/21/2017 12:00 AM MANAGER LINUX) Narrative 12/21/2017 12:00 AM MANAGER LINUX Ordered by an unspecified provider. Historical Provider LAB BLOOD ORDERABLES Chata l Result * (ABNORMAL) Comprehensive metabolic panel (12/20/2017 8:51 PM MANAGER LINUX) [facility] Sodium 137 135 - 145 mmol/L [facility] Potassium, pl 3.9 3.3 - 4.9 mmol/L [facility] CO2 25 22 - 32 mmol/L [facility] BUN 10 8 - 25 mg/dL [facility] Glucose 155 70 - 199 mg/dL [facility] [...] 2017. Creatinine 0.68(L) 0.80 - 1.30 mg/dL [facility] Calcium 8.7 8.5 - 10.3 mg/dL [facility] Chloride 102 97 - 110 mmol/L [facility] Albumin 3.5 3.5 - 5.0 g/dL [facility] AST 36 10 - 50 Units/L [facility] ALT 72(H) 7 - 55 Units/L [facility] Alk phos 188(H) 40 - 130 Units/L [facility] Bilirubin, total 0.2 0.1 - 1.2 mg/dL [facility] Protein, pl 5.7(L) 6.5 - 8.5 g/dL [facility] Anion gap 10 2 - 15 mmol/L [facility] Blood specimen (specimen) 12/20/2017 8:51 PM MANAGER LINUX 12/20/2017 9:31 PM MANAGER LINUX Narrative [facility] - 12/20/2017 10:48 PM MANAGER LINUX us Flory Cary MD LAB BLOOD ORDERABLES Final Result [facility] Department [place] [address] * (ABNORMAL) Manual Differential (12/20/2017 8:51 PM MANAGER LINUX) Neutrophils 25.3 % [facility] Lymphocytes 24.0 % [facility] Monos 40.5 % [facility] Basophil pct 1.3 % [facility] Metamyelocyte pct 3.8 % [facility] Promyelocyte pct 1.3 % [facility] WBC counted 79 Cells [facility] Variant lymph pct 3.8 % [facility] Neutrophil abs 1.44(L) 1.70 - 6.50 K/cumm [facility] Lymphs, abs 1.58 0.80 - 3.30 K/cumm [facility] Monos, abs 2.30(H) 0.20 - 0.80 K/cumm [facility] Basophils, abs 0.07 0.00 - 0.10 K/cumm [facility] Immature granulocyte, abs 0.29(H) 0.00 - 0.10 K/cumm [facility] Blood specimen (specimen) 12/20/2017 8:51 PM MANAGER LINUX 12/20/2017 9:36 PM MANAGER LINUX Narrative [facility] - 12/20/2017 10:28 PM MANAGER LINUX Flory Cary MD LAB BLOOD ORDERABLES Final Result [facility] Department [place] [address] * (ABNORMAL) CBC with auto differential (12/20/2017 8:51 PM MANAGER LINUX) [facility] WBC 5.7 3.8 - 9.9 K/cumm [facility] RBC 2.72(L) 4.30 - 5.80 M/cumm [facility] Hgb 8.6(L) 13.0 - 17.5 g/dL [facility] Hct 24.4(L) 38.9 - 50.3 % [facility] MCV 89.7 81.3 - 96.4 fL [facility] MCH 31.6 27.1 - 33.3 pg [facility] MCHC 35.2 32.3 - 35.7 g/dL [facility] RDW CV 17.1(H) 11.1 - 14.9 % [facility] RDW SD 55.8(H) 35.7 - 48.1 fL [facility] Plt 115(L) 150 - 400 K/cumm [facility] MPV 13.2(H) 9.1 - 12.3 fL [facility] NRBC abs 0.16(H) 0.00 - 0.01 K/cumm [facility] Blood specimen (specimen) 12/20/2017 8:51 PM MANAGER LINUX 12/20/2017 9:31 PM MANAGER LINUX Narrative [facility] - 12/20/2017 9:47 PM MANAGER LINUX Flory Cary MD LAB BLOOD ORDERABLES Final Result Performing Organization Address [facility] Co de Phone Number [facility] [place] [address] * (ABNORMAL) Vancomycin, trough (12/20/2017 10:33 AM MANAGER LINUX) [facility] Vancomycin trough 6.8(L) 10.0 - 20.9 mcg/mL [facility] Blood specimen (specimen) 12/20/2017 10:33 AM MANAGER LINUX 12/20/2017 10:52 AM MANAGER LINUX Narrative [facility] - 12/20/2017 11:16 AM MANAGER LINUX Flory Cary MD LAB BLOOD ORDERABLES Final Result Performing Organization Address [facility] Co de Phone Number [facility] [place] [address] * (ABNORMAL) Manual Differential (12/19/2017 8:54 PM MANAGER LINUX) [facility] Neutrophils 7.6 % [facility] Lymphocytes 51.5 % [facility] Monos 36.4 % [facility] Basophil pct 3.0 % [facility] WBC counted 66 Cells [facility] Variant lymph pct 1.5 % [facility] Neutrophil abs 0.16(C) 1.70 - 6.50 K/cumm [facility] Comment:Critical result call ed to and read back by NATALIE ANG RN on 12 19 2017 at 2222 to Marco A Ho. Lymphs, abs 1.11 0.80 - 3.30 K/cumm [facility] Monos, abs 0.76 0.20 - 0.80 K/cumm [facility] Basophils, abs 0.06 0.00 - 0.10 K/cumm [facility] Blood specimen (specimen) 12/19/2017 8:54 PM MANAGER LINUX 12/19/2017 9:44 PM MANAGER LINUX Narrative [facility] - 12/19/2017 10:28 PM MANAGER LINUX us Irina Saleem MD LAB BLOOD ORDERABLES Chata cuadra Result [facility] Department [place] [address] * (ABNORMAL) CBC with auto differential (12/19/2017 8:54 PM MANAGER LINUX) WBC 2.1(L) 3.8 - 9.9 K/cumm [facility] RBC 2.70(L) 4.30 - 5.80 M/cumm [facility] Hgb 8.7(L) 13.0 - 17.5 g/dL [facility] Hct 23.6(L) 38.9 - 50.3 % [facility] MCV 87.4 81.3 - 96.4 fL [facility] MCH 32.2 27.1 - 33.3 pg [facility] MCHC 36.9(H) 32.3 - 35.7 g/dL [facility] RDW CV 16.2(H) 11.1 - 14.9 % [facility] RDW SD 51.5(H) 35.7 - 48.1 fL [facility] Plt 78(L) 150 - 400 K/cumm [facility] MPV 12.9(H) 9.1 - 12.3 fL [facility] NRBC abs 0.02(H) 0.00 - 0.01 K/cumm [facility] Blood specimen (specimen) 12/19/2017 8:54 PM MANAGER LINUX 12/19/2017 9:06 PM MANAGER LINUX Narrative [facility] - 12/19/2017 10:22 PM MANAGER LINUX Irina Saleem MD LAB BLOOD ORDERABLES Chata cuadra Result [facility] Department [place] [address] * Blood culture (12/19/2017 7:03 PM MANAGER LINUX) Report Final Report: No growth [facility] Blood specimen (specimen) (Antecubital, right) 12/19/2017 7:03 PM MANAGER LINUX 12/19/2017 11:39 PM MANAGER LINUX Narrative [facility] - 12/20/2017 12:00 PM MANAGER LINUX Blood cultures are incubated for five days on a continuously monitored blood culture system. ??The first report of a negative culture is issued within 24 hours of receipt of the specimen in the laboratory. ??Positive culture results are reported as soon as they are detected. ??For blood cultures with gram-positive cocci, a rapid molecular test for organism identification may be performed using the [employer] Nanosphere Gram Positive Blood Culture Assay. ??The Nanosphere assay detects microbial DNA in positive blood culture broth via hybridization of target DNA to capture oligonucleotides on a microarray. ??This assay has been cleared by the [place] Food and Drug Administration and its performance characteristics have been verified by the [facility]. Current Interpretive Data was last revised on 2014. Irina Saleem MD LAB MICROBIOLOGY - GENERA L ORDERABLES Final Result [facility] Department [place] [address] * Blood culture (12/19/2017 7:03 PM MANAGER LINUX) Report Final Report: No growth [facility] Blood specimen (specimen) (Port) 12/19/2017 7:03 PM MANAGER LINUX 12/19/2017 11:38 PM MANAGER LINUX Narrative [facility] - 12/20/2017 12:00 PM MANAGER LINUX Blood cultures are incubated for five days on a continuously monitored blood culture system. ??The first report of a negative culture is issued within 24 hours of receipt of the specimen in the laboratory. ??Positive culture results are reported as soon as they are detected. ??For blood cultures with gram-positive cocci, a rapid molecular test for organism identification may be performed using the [employer] Nanosphere Gram Positive Blood Culture Assay. ??The Nanosphere assay detects microbial DNA in positive blood culture broth via hybridization of target DNA to capture oligonucleotides on a microarray. ??This assay has been cleared by the [place] Food and Drug Administration and its performance characteristics have been verified by the [facility]. Current Interpretive Data was last revised on 2014. Irina Saleem MD LAB MICROBIOLOGY - GENERA L ORDERABLES Final Result Performing Organization Address [facility] Co de Phone Number [facility] [place] [address] * Tacrolimus level trough (12/19/2017 8:17 AM MANAGER LINUX) Pathologist [facility] Tacrolimus, trough 2.0 ng/mL [facility] Comment: Interpretive Data The therapeutic range for tacrolimus can vary by transplant organ type and sample timing but a trough range of 5 - 15 ng/mL is typical. Testing performed by liquid chromatography-tandem mass spectrometry (LC- MS/MS).This test was developed using an analyte specific reagent. Its performance characteristics were determined by the [facility] in a manner consistent with CLIA requirements. This test has not been cleared or approved by the U.S. Food and Drug Administration. Current interpretive data was last revised on 2016. Blood specimen (specimen) 12/19/2017 8:17 AM MANAGER LINUX 12/19/2017 8:31 AM MANAGER LINUX Narrative [facility] - 12/20/2017 2:21 AM MANAGER LINUX Irina Saleem MD LAB BLOOD ORDERABLES Chata l Result Performing Organization Address [facility] Co de Phone Number [facility] Department [place] [address] * (ABNORMAL) Manual Differential (12/19/2017 8:17 AM MANAGER LINUX) Pathologist [facility] Neutrophils 4.2 % [facility] Lymphocytes 59.7 % [facility] Monos 29.2 % [facility] Eosinophils 1.4 % [facility] Basophil pct 5.5 % [facility] WBC counted 72 Cells [facility] Neutrophil abs 0.04(C) 1.70 - 6.50 K/cumm [facility] Comment:Critical result call ed to and read back by KIM MAGALLANESRN on 12 19 2017 at 0934 to Lydia Hudson. Lymphs, abs 0.52(L) 0.80 - 3.30 K/cumm [facility] Monos, abs 0.25 0.20 - 0.80 K/cumm [facility] Eosinophils, abs 0.01 0.00 - 0.50 K/cumm [facility] Basophils, abs 0.05 0.00 - 0.10 K/cumm [facility] Blood specimen (specimen) 12/19/2017 8:17 AM MANAGER LINUX 12/19/2017 8:36 AM MANAGER LINUX Narrative [facility] - 12/19/2017 9:34 AM MANAGER LINUX us Irina Saleem MD LAB BLOOD ORDERABLES Chata cuadra Result [facility] Department [place] [address] * (ABNORMAL) CBC with auto differential (12/19/2017 8:17 AM MANAGER LINUX) WBC 0.9(C) 3.8 - 9.9 K/cumm [facility] Comment:Consistent with prev ious reported value RBC 2.97(L) 4.30 - 5.80 M/cumm [facility] Hgb 9.3(L) 13.0 - 17.5 g/dL [facility] Hct 26.1(L) 38.9 - 50.3 % [facility] MCV 87.9 81.3 - 96.4 fL [facility] MCH 31.3 27.1 - 33.3 pg [facility] MCHC 35.6 32.3 - 35.7 g/dL [facility] RDW CV 17.0(H) 11.1 - 14.9 % [facility] RDW SD 54.1(H) 35.7 - 48.1 fL [facility] Plt 61(L) 150 - 400 K/cumm [facility] MPV 12.5(H) 9.1 - 12.3 fL [facility] NRBC abs 0.00 0.00 - 0.01 K/cumm [facility] Blood specimen (specimen) 12/19/2017 8:17 AM MANAGER LINUX 12/19/2017 8:31 AM MANAGER LINUX Narrative [facility] - 12/19/2017 8:40 AM MANAGER LINUX Irina Saleem MD LAB BLOOD ORDERABLES Edit ed Result - Final Performing Organization Address City/[facility]/ZIP Co de Phone Number [facility] Department [place] [address] * Type and screen (12/18/2017 9:59 PM MANAGER LINUX) Pathologist [facility] ABO Rh A Positive [facility] Carol, indirect Negative [facility] Comment:Patient has previous antibody history Blood specimen (specimen) 12/18/2017 9:59 PM MANAGER LINUX 12/18/2017 10:39 PM MANAGER LINUX Narrative [facility] - 12/18/2017 11:48 PM MANAGER LINUX Result [facility] Irina Saleem MD LAB BLOOD BANK TEST ORDER DARCY Final Result Performing Organization Address [facility] Co de Phone Number [facility] Department [place] [address] * Vancomycin, trough (12/18/2017 9:59 PM MANAGER LINUX) Pathologist [facility] Vancomycin trough 13.2 10.0 - 20.9 mcg/mL [facility] Blood specimen (specimen) 12/18/2017 9:59 PM MANAGER LINUX 12/18/2017 10:23 PM MANAGER LINUX Narrative [facility] - 12/18/2017 10:52 PM MANAGER LINUX Ruth Ann Finn LAB BLOOD ORDERABLES Final Resul t Performing Organization Address City/[facility]/ZIP Co de Phone Number [facility] Department [place] [address] * Transfusion Event (12/18/2017 6:15 PM MANAGER LINUX) 12/18/2017 6:15 PM MANAGER LINUX Narrative [facility] - 12/19/2017 2:30 AM MANAGER LINUX ADI ARNOLD [facility] [phone] [id number] Pre Transfusion checks verified 12-18-2017 12:15 by Samantha Moran Consent or Emergency Release Verified Order to Transfuse in last 24hrs Pre Medication Orders Reviewed Verified Crossmatch, if performed Special requirements ordered are met [id number] RBCs RED BLOOD CELLS LEUKOREDUCED Product Expiration Date Time: 12-30-2017 23:59 Start Transfusionist: Samantha Moran Start Date/Time of Transfusion: 12-18-2017 12:15 End Transfusionist: Samantha Moran End Date/Time of Transfusion: 12-18-2017 14:22 Vitals Date/Time ?Bld Pressure ??HR ?Respirations ??Temp ??Site ?O2 Sat 12-18-2017 12:10 108/62 ?100 ?? 16 ?37 ?Axillary ?99 12-18-2017 12:30 108/62 ?91 ?16 ?37.4 ??Oral ?100 12-18-2017 13:17 100/48 ?102 ?? 16 ?37.7 ??Oral ?96 12-18-2017 14:22 102/57 ?94 ?18 ?37.9 ??Oral ?98 12-18-2017 15:30 99/57 ? 91 ?16 ?38 ?Oral ?98 12-18-2017 17:20 ? 37.4 ??Axillary ? 12-18-2017 19:24 ? Total Volume Transfused: 350 mL Transfusion Reaction Indicated: NO us Not In File Miscellaneous BLOOD BANK PRODUCT ORD ERABLES Edited Result - Final [facility] * (ABNORMAL) CBC without differential (12/18/2017 8:12 AM MANAGER LINUX) WBC 0.4(C) 3.8 - 9.9 K/cumm [facility] Comment:Consistent with prev ious reported value RBC 2.18(L) 4.30 - 5.80 M/cumm [facility] Hgb 7.1(L) 13.0 - 17.5 g/dL [facility] Hct 20.2(L) 38.9 - 50.3 % [facility] MCV 92.7 81.3 - 96.4 fL [facility] MCH 32.6 27.1 - 33.3 pg [facility] MCHC 35.1 32.3 - 35.7 g/dL [facility] RDW CV 17.1(H) 11.1 - 14.9 % [facility] RDW SD 58.1(H) 35.7 - 48.1 fL [facility] NRBC abs 0.00 0.00 - 0.01 K/cumm [facility] Plt 35(C) 150 - 400 K/cumm [facility] Comment:No clot detected in sample. Inpatient, result not critical. MPV 13.5(H) 9.1 - 12.3 fL [facility] Blood specimen (specimen) 12/18/2017 8:12 AM MANAGER LINUX 12/18/2017 8:59 AM MANAGER LINUX Narrative [facility] - 12/18/2017 9:49 AM MANAGER LINUX us Cindy Castro MD LAB BLOOD ORDERABLES Final Resul t [facility] Department [place] [address] * (ABNORMAL) Basic metabolic panel (12/18/2017 8:12 AM MANAGER LINUX) [facility] Sodium 138 135 - 145 mmol/L [facility] Potassium, pl 4.1 3.3 - 4.9 mmol/L [facility] Chloride 103 97 - 110 mmol/L [facility] CO2 27 22 - 32 mmol/L [facility] BUN 7(L) 8 - 25 mg/dL [facility] Glucose 100 70 - 199 mg/dL [facility] [...] interpretive data was last revised 2017. Creatinine 0.63(L) 0.80 - 1.30 mg/dL [facility] Calcium 8.6 8.5 - 10.3 mg/dL [facility] Anion gap 8 2 - 15 mmol/L [facility] Blood specimen (specimen) 12/18/2017 8:12 AM MANAGER LINUX 12/18/2017 8:58 AM MANAGER LINUX N[facility]ative [facility] - 12/18/2017 9:27 AM MANAGER LINUX us Cindy Castro MD LAB BLOOD ORDERABLES Final Resul t Performing Organization Address [facility] Co de Phone Number [facility] [place] [address] * Type and screen (12/18/2017 5:22 AM MANAGER LINUX) Pathologist [facility] Carol, indirect Negative [facility] Comment:Patient has previous antibody history ABO Rh A Positive [facility] Blood specimen (specimen) 12/18/2017 5:22 AM MANAGER LINUX 12/18/2017 6:33 AM MANAGER LINUX Narrative [facility] - 12/18/2017 7:50 AM MANAGER LINUX us Cindy Castro MD LAB BLOOD BANK TEST ORDERABLES F inal Result Performing Organization Address [facility] de Phone Number [facility] [place] [address] * (ABNORMAL) Manual Differential (12/18/2017 5:22 AM MANAGER LINUX) [facility] Neutrophils 8.3 % [facility] Lymphocytes 70.9 % [facility] Monos 12.5 % [facility] Basophil pct 8.3 % [facility] Platelet estimate Decreased(A ) [facility] Anisocytosis 3+(A) [facility] Macrocytes 3-7/HPF(A) [facility] WBC counted 24 Cells [facility] RBC morphology Present(A) [facility] Neutrophil abs 0.05(C) 1.70 - 6.50 K/cumm [facility] Comment:Critical result call ed to and read back by ANUSHA JOHNSON RN on 12 18 2017 at 0658 to LEROY ENG. Lymphs, abs 0.43(L) 0.80 - 3.30 K/cumm [facility] Monos, abs 0.08(L) 0.20 - 0.80 K/cumm [facility] Basophils, abs 0.05 0.00 - 0.10 K/cumm [facility] Morphology scrn See Comment [facility] Comment:PLT: Large platelets present Blood specimen (specimen) 12/18/2017 5:22 AM MANAGER LINUX 12/18/2017 6:07 AM MANAGER LINUX Narrative [facility] - 12/18/2017 6:58 AM MANAGER LINUX Raymond Carrera [employer] LAB BLOOD ORDERABLES Final Result [facility] Department [place] [address] * (ABNORMAL) CBC with auto differential (12/18/2017 5:22 AM MANAGER LINUX) Pathologist [facility] WBC 0.6(C) 3.8 - 9.9 K/cumm [facility] Comment:Critical result call ed to and read back by ANUSHA JOHNSON RN on 12 18 2017 at 0658 to LEROY ENG. RBC 2.08(L) 4.30 - 5.80 M/cumm [facility] Hgb 6.7(L) 13.0 - 17.5 g/dL [facility] Hct 19.2(L) 38.9 - 50.3 % [facility] MCV 92.3 81.3 - 96.4 fL [facility] MCH 32.2 27.1 - 33.3 pg [facility] MCHC 34.9 32.3 - 35.7 g/dL [facility] RDW CV 17.2(H) 11.1 - 14.9 % [facility] RDW SD 58.5(H) 35.7 - 48.1 fL [facility] Plt 42(C) 150 - 400 K/cumm [facility] Comment:Critical result call ed to and read back by ANUSHA JOHNSON RN on 12 18 2017 at 0658 to LEROY ENG. MPV 11.7 9.1 - 12.3 fL [facility] NRBC abs 0.02(H) 0.00 - 0.01 K/cumm [facility] Blood specimen (specimen) 12/18/2017 5:22 AM MANAGER LINUX 12/18/2017 6:03 AM MANAGER LINUX Narrative [facility] - 12/18/2017 6:58 AM MANAGER LINUX Raymond Carrera [employer] LAB BLOOD ORDERABLES Final Result [facility] Department [place] [address] * XR Chest Pa Lateral 2 Views (12/18/2017 2:57 AM MANAGER LINUX) Anatomical Region Laterality Modality Body, Chest N/A Radiographic Shilpi ging 12/18/2017 2:57 AM MANAGER LINUX Narrative 12/18/2017 2:39 PM MANAGER LINUX Stephon DUMONT M.D. FINAL REPORT The radiology attending physician has personally reviewed this study, and has reviewed and/or edited this written report and agrees with it. ACC# ??Date Time ??Exam [id number] Dec 17, 2017 20:57:00 [id number] Chest 2vws Stnd PA/Lat EXAMINATION: ??2 view chest radiograph IMPRESSION: ??Comparison made to 11/28/2017. ??Postsurgical changes of orthotopic liver transplant are noted. ??Multiple surgical clips are present within the left upper quadrant. ??A right internal jugular port catheter tip terminates in the right atrium. ??Surgical clips are noted within the right neck. The lungs are clear without consolidation or edema. ??Heart size and mediastinal contours are normal. ??No pleural effusion or pneumothorax. ??Prominence of the right costophrenic angle on the frontal view is unchanged. On the lateral view, there is a new rounded opacity within the infrahilar window which likely represents lymphadenopathy. Electronically signed by: Darcy Jimenez M.D. Requested By: RAYMOND CARRERA Dictated By: ?? ASMITA WHITESIDE M.D. ??on Dec 18 2017 ??8:36A This document has been electronically signed by: DARCY JIMENEZ M.D. on Dec 18 2017 ??8:37A [id number] DUMONT M.D. FINAL REPORT The radiology attending physician has personally reviewed this study, and has reviewed and/or edited this written report and agrees with it. Attending: ??MATTHEW, ??VANESSA Requesting: ??DEBI, ??RAYMOND Requesting Fax: ?? Attending Fax: ?? Attending ID: ??[id number] Requesting ID: ??[id number] Report To 1 ID: ??[id number] ? Report To 1 Name: ??, ?? Report To 1 FAX: ?? NextGen Order #: ?? Procedure Note Miscellaneous, Not In File - 12/18/2017 Stephon DUMONT M.D. FINAL REPORT The radiology attending physician has personally reviewed this study, and has reviewed and/or edited this written report and agrees with it. ACC# Date Time Exam [id number] Dec 17, 2017 20:57:00 [id number] Chest 2vws Stnd PA/Lat EXAMINATION: 2 view chest radiograph IMPRESSION: Comparison made to 11/28/2017. Postsurgical changes of orthotopic liver transplant are noted. Multiple surgical clips are present within the left upper quadrant. A right internal jugular port catheter tip terminates in the right atrium. Surgical clips are noted within the right neck. The lungs are clear without consolidation or edema. Heart size and mediastinal contours are normal. No pleural effusion or pneumothorax. Prominence of the right costophrenic angle on the frontal view is unchanged. On the lateral view, there is a new rounded opacity within the infrahilar window which likely represents lymphadenopathy. Electronically signed by: Darcy Jimenez M.D. Requested By: RAYMOND CARRERA ANP Dictated By: ASMITA WHITESIDE M.D. on Dec 18 2017 8:36A This document has been electronically signed by: DARCY JIMENEZ M.D. on Dec 18 2017 8:37A [id number] DUMONT M.D. FINAL REPORT The radiology attending physician has personally reviewed this study, and has reviewed and/or edited this written report and agrees with it. Attending: VANESSA THOMPSON Requesting: RAYMOND CARRERA Requesting Fax: Attending Fax: Attending ID: [id number] Requesting ID: [id number] Report To 1 ID: [id number] Report To 1 Name: , Report To 1 FAX: NextGen Order #: Raymond Carrera [facility] [employer] IMG XR PROCEDURES Final Re sult * (ABNORMAL) Urinalysis (12/17/2017 11:11 PM MANAGER LINUX) Color, ur Yellow Yellow [facility] Clarity, ur Clear Clear [facility] Specific gravity, ur 1.010 1.003 - 1.030 [facility] pH, ur 8.0 5.0 - 8.0 [facility] Albumin, ur Negative Trace [facility] Glucose, ur ql Negative Negative [facility] Ketones, ur Negative Negative [facility] Bilirubin, ur Negative Negative [facility] Blood, ur Negative Negative [facility] Urobilinogen, ur 2.0(A) <2.0 mg/dL [facility] Nitrites, ur Negative Negative [facility] Leukocyte esterase, ur Negative Negative [facility] Urine 12/17/2017 11:1 1 PM MANAGER LINUX 12/17/2017 11:46 PM MANAGER LINUX Narrative [facility] - 12/18/2017 12:04 AM MANAGER LINUX Raymond Carrera [employer] LAB URINE ORDERABLES Final Result [facility] [place] [address] * Blood culture (12/17/2017 9:25 PM MANAGER LINUX) Report Final Report: No growth [facility] Blood specimen (specimen) (Port) 12/17/2017 9:25 PM MANAGER LINUX 12/17/2017 10:35 PM MANAGER LINUX Narrative [facility] - 12/18/2017 12:01 PM MANAGER LINUX Blood cultures are incubated for five days [...] ??This assay has been cleared by the [facility] Food and Drug Administration and its performance characteristics have been verified by the [facility]. Current Interpretive Data was last revised on 2014. Raymond Carrera NP LAB MICROBIOLOGY - GENERAL ORDERABLES Final Result Performing Organization Address [facility] Co de Phone Number [facility] [place] [address] * Blood culture (12/17/2017 9:25 PM MANAGER LINUX) Report Final Report: No growth [facility] Blood specimen (specimen) (Arm, right) 12/17/2017 9:25 PM MANAGER LINUX 12/17/2017 11:48 PM MANAGER LINUX Narrative [facility] - 12/18/2017 12:01 PM MANAGER LINUX Blood cultures are incubated for five days [...] performance characteristics have been verified by the [facility]. Current Interpretive Data was last revised on 2014. Raymond Carrera NP LAB MICROBIOLOGY - GENERAL ORDERABLES Final Result Performing Organization Address [facility] Co de Phone Number [facility] Department [place] [address] * (ABNORMAL) Respiratory virus detection panel (12/17/2017 9:25 PM MANAGER LINUX) Report Final Report: Target nucleic acid DETECTED (POSITIVE) for: Rhinovirus/En terovirus (.) [facility] Organism RHINOVIRUS/EN TEROVIRUS [facility] Nasopharyngeal 12/17/2017 9: 25 PM MANAGER LINUX 12/17/2017 11:33 PM MANAGER LINUX Narrative [facility] - 12/17/2017 11:33 PM MANAGER LINUX The [employer] FilmArray Respiratory Panel (RP2) assay is a [...] FilmArray RP assay is FDA cleared for [employer] [employer] swabs. ??Additional sample types have been validated according to CLIA regulations. The performance characteristics of this assay have been determined by [facility] Molecular Infectious Disease Laboratory. Current interpretive data was last revised on 2017. Raymond Carrera [employer] LAB MICROBIOLOGY - GENERAL ORDERABLES Final Result Performing Organization Address [facility] Co de Phone Number [facility] [place] [address] * Influenza A/B PCR (12/17/2017 9:25 PM MANAGER LINUX) Report Final Report: Flu A target RNA not detected Flu B target RNA not detected RSV target RNA not detected [facility] Nasopharyngeal 12/17/2017 9: 25 PM MANAGER LINUX 12/17/2017 10:53 PM MANAGER LINUX Narrative [facility] - 12/17/2017 10:53 PM MANAGER LINUX Interpretive Data This test is performed using the [employer] Xpert Xpress Flu/RSV Assay. ??This is a multiplex, real-time reverse transcriptase PCR assay that detects influenza A, influenza B, and respiratory syncytial virus RNA. ??This assay has been cleared by the [place] Food and Drug Administration, and its performance characteristics have been verified by the [facility]. Current interpretive data was last revised on 2017. Raymond Carrera [employer] LAB MICROBIOLOGY - GENERAL ORDERABLES Final Result Performing Organization Address [facility] de Phone Number [facility] [place] [address] * Type and screen (12/17/2017 9:25 PM MANAGER LINUX) ABO Rh A Positive [facility] Carol, indirect Negative [facility] Comment:Patient has previous antibody history Blood specimen (specimen) 12/17/2017 9:25 PM MANAGER LINUX 12/17/2017 9:44 PM MANAGER LINUX Narrative [facility] - 12/17/2017 11:07 PM MANAGER LINUX Raymond Carrera [employer] LAB BLOOD BANK TEST ORDERA BLES Final Result Performing Organization Address [facility] Co de Phone Number [facility] [place] [address] * (ABNORMAL) Manual Differential (12/17/2017 9:25 PM MANAGER LINUX) Neutrophils 12.9 % [facility] Lymphocytes 82.3 % [facility] Monos 3.2 % [facility] Basophil pct 1.6 % [facility] WBC counted 62 Cells [facility] Neutrophil abs 0.06(C) 1.70 - 6.50 K/cumm [facility] [facility] Comment:Critical result call ed to and read back by CHRISTY CHARLES RN on 12 17 2017 at 2248 to Amy Rivera. Lymphs, abs 0.37(L) 0.80 - 3.30 K/cumm [facility] Monos, abs 0.01(L) 0.20 - 0.80 K/cumm [facility] Basophils, abs 0.01 0.00 - 0.10 K/cumm [facility] Immature granulocyte, abs 0.00 0.00 - 0.10 K/cumm [facility] Blood specimen (specimen) 12/17/2017 9:25 PM MANAGER LINUX 12/17/2017 10:17 PM MANAGER LINUX Narrative [facility] - 12/17/2017 10:48 PM MANAGER LINUX Raymond Carrera CARDER BLANKETS LAB BLOOD ORDERABLES Final Result Performing Organization Address City/[facility]/ZIP Co de Phone Number [facility] Department [place] [address] * (ABNORMAL) CBC with auto differential (12/17/2017 9:25 PM MANAGER LINUX) Pathologist [facility] WBC 0.4(C) 3.8 - 9.9 K/cumm [facility] Comment:Critical result call ed to and read back by CHRISTY CHARLES RN on 12 17 2017 at 2224 to Laurent Orosco. RBC 2.31(L) 4.30 - 5.80 M/cumm [facility] Hgb 7.4(L) 13.0 - 17.5 g/dL [facility] Hct 21.3(L) 38.9 - 50.3 % [facility] MCV 92.2 81.3 - 96.4 fL [facility] MCH 32.0 27.1 - 33.3 pg [facility] MCHC 34.7 32.3 - 35.7 g/dL [facility] RDW CV 17.1(H) 11.1 - 14.9 % [facility] RDW SD 58.2(H) 35.7 - 48.1 fL [facility] Plt 41(C) 150 - 400 K/cumm [facility] Comment:Critical result call ed to and read back by CHRISTY CHARLES RN on 12 17 2017 at 2224 to Laurent Orosco. MPV 11.6 9.1 - 12.3 fL [facility] NRBC abs 0.00 0.00 - 0.01 K/cumm [facility] Blood specimen (specimen) 12/17/2017 9:25 PM MANAGER LINUX 12/17/2017 9:46 PM MANAGER LINUX Narrative [facility] - 12/17/2017 10:25 PM MANAGER LINUX us Raymond Carrera CARDER BLANKETS LAB BLOOD ORDERABLES Final Result [facility] Department [place] [address] * (ABNORMAL) Comprehensive metabolic panel (12/17/2017 9:25 PM MANAGER LINUX) Sodium 137 135 - 145 mmol/L [facility] Potassium, pl 4.2 3.3 - 4.9 mmol/L [facility] CO2 28 22 - 32 mmol/L [facility] BUN 7(L) 8 - 25 mg/dL [facility] Glucose 121 70 - 199 mg/dL [facility] [...] interpretive data was last revised 2017. Creatinine 0.67(L) 0.80 - 1.30 mg/dL [facility] Calcium 8.4(L) 8.5 - 10.3 mg/dL [facility] Chloride 102 97 - 110 mmol/L [facility] Albumin 3.5 3.5 - 5.0 g/dL [facility] AST 30 10 - 50 Units/L [facility] ALT 86(H) 7 - 55 Units/L [facility] Alk phos 172(H) 40 - 130 Units/L [facility] Bilirubin, total 0.3 0.1 - 1.2 mg/dL [facility] Protein, pl 5.8(L) 6.5 - 8.5 g/dL [facility] Anion gap 7 2 - 15 mmol/L [facility] Blood specimen (specimen) 12/17/2017 9:25 PM MANAGER LINUX 12/17/2017 9:46 PM MANAGER LINUX Narrative [facility] - 12/17/2017 10:11 PM MANAGER LINUX Raymond Carrera CARDER BLANKETS LAB BLOOD ORDERABLES Final Result [facility] Department [place] [address] * Magnesium (12/17/2017 9:25 PM MANAGER LINUX) Magnesium 1.7 1.4 - 2.5 mg/dL [facility] Blood specimen (specimen) 12/17/2017 9:25 PM MANAGER LINUX 12/17/2017 9:46 PM MANAGER LINUX Narrative [facility] - 12/17/2017 10:11 PM MANAGER LINUX Raymond Carrera CARDER BLANKETS LAB BLOOD ORDERABLES Final Result Performing Organization Address [facility] [place] [address] * Phosphorus (12/17/2017 9:25 PM MANAGER LINUX) Phosphorus, pl 3.0 2.3 - 4.5 mg/dL [facility] Blood specimen (specimen) 12/17/2017 9:25 PM MANAGER LINUX 12/17/2017 9:46 PM MANAGER LINUX Narrative [facility] - 12/17/2017 10:11 PM MANAGER LINUX Raymond Carrera CARDER BLANKETS LAB BLOOD ORDERABLES Final Result Performing Organization Address [facility] [place] [address] * Lactate, plasma (12/17/2017 9:25 PM MANAGER LINUX) Lactate 1.5 0.7 - 2.2 mmol/L [facility] Blood specimen (specimen) 12/17/2017 9:25 PM MANAGER LINUX 12/17/2017 9:46 PM MANAGER LINUX Narrative [facility] - 12/17/2017 10:07 PM MANAGER LINUX Raymond Carrera CARDER BLANKETS LAB BLOOD ORDERABLES Final Result Performing Organization Address [facility] [place] [address] documented in this encounter Visit Diagnoses Not on filedocumented in this encounter Care Teams Inventory Analyst Relationship Specialty Start Date End Date Kali Cruz MD [address] [facility] [address] [place] [address] PCP - General 04/09/17 03/21/19 documented as of this encounter
--- OUTSIDE RECORDS SUMMARY | 2024-10-28 06:28 | XMS_ITS | Encounter Summary ---
Author Organization [facility] Healthcare Address [address] [place] [address] Care Team Providers Care International Sales Representative Name Role Phone Kali Cruz MD Primary Care Provider Encounter Details Date Type Department Care Team (Late st Contact Info) Description 01/13/2018 6:36 AM CDT - 01/13/2018 10:01 AM CDT Hospital Encounter [facility] OP INTERIM [phone] Isaura Flores MD [address] [place] [id number] Jp Hopson MD [address] [address] Discharge Disposition: Discharge to home or self care Social History Tobacco Use Types Packs/Day Years Used Date Smoking Tobacco: Never Sex and Gender Information Value Date Recorded Sex Assigned at Not on file 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 MANDEEP GIBBONS M.D. FINAL REPORT The radiology attending physician has personally reviewed this study, and has reviewed and/or edited this written report and agrees with it. ACC# ??Date Time ??Exam [id number] Jan 13, 2018 09:12:00 [id number] Fluoro Nathan Accs R [id number] Jan 13, 2018 09:12:00 [id number] Remove Port R EXAMINATION: ??PORT REMOVAL HISTORY: 22-year-old male with history of lymphoma, port no longer needed. ATTENDING PRESENCE: Jp Hopson M.D., the attending radiologist was present from the beginning to the end of the procedure. ?? SEDATION: The patient did not require conscious sedation. TECHNIQUE: The risks, benefits and alternatives were discussed and informed consent was obtained. ??Prior to beginning the procedure, Fordyce Protocol was used to confirm the patient's identity and planned procedure. ??Fluoroscopy time has been recorded in the electronic medical record. Maximum sterile barriers including cap, mask, hand hygiene, sterile gloves, sterile gown, large sterile drape and 2% chlorhexidine for cutaneous antisepsis were used. ??A fluoroscopic image was recorded prior to the beginning of the procedure. ??The skin adjacent to the right chest wall port was sterilely prepped, draped and infiltrated with 1% lidocaine. ?? After making a short transverse incision, the port reservoir was freed using a combination of sharp and blunt dissection. ??The catheter was then removed. ??A fluoroscopic image was recorded following removal of the port. ??The deep tissues were approximated using 2-0 Vicryl and 4-0 Monocryl and the incision closed using skin glue. ESTIMATED BLOOD LOSS: Minimal. CONDITION: Stable DISCHARGED TO: home FINDINGS: The port site showed no purulence or other evidence of infection. IMPRESSION: ??Successful port removal. Electronically signed by: Jp Hopson M.D. Requested By: ANITA GILLESPIE ??Stephon ? Dictated By: ?? MANDEEP GIBBONS M.D. ??on Jan 13 2018 ??9:21A This document has been electronically signed by: JP HOPSON M.D. on Jan 13 2018 ??1:17P [id number] SANDOVAL M.D. FINAL REPORT The radiology attending physician has personally reviewed this study, and has reviewed and/or edited this written report and agrees with it. Attending: ??MARTI, ??ISAURA Requesting: ??BERNADETTE, ??ANITA Requesting Fax: ?? Attending Fax: ?? Attending ID: ??[id number] Requesting ID: ??[id number] Report To 1 ID: ??[id number] ? Report To 1 Name: ??, ?? Report To 1 FAX: ?? NextGen Order #: ?? Procedure Note Miscellaneous, Not In File - 01/13/2018 Stephon KAHN M.D. FINAL REPORT The radiology attending physician has personally reviewed this study, and has reviewed and/or edited this written report and agrees with it. ACC# Date Time Exam [id number] Jan 13, 2018 09:12:00 [id number] Fluoro Nathan Accs R [id number] Jan 13, 2018 09:12:00 [id number] Remove Port R EXAMINATION: PORT REMOVAL HISTORY: 22-year-old male with history of lymphoma, port no longer needed. ATTENDING PRESENCE: Jp Hopson M.D., the attending radiologist was present from the beginning to the end of the procedure. SEDATION: The patient did not require conscious sedation. TECHNIQUE: The risks, benefits and alternatives were discussed and informed consent was obtained. Prior to beginning the procedure, Fordyce Protocol was used to confirm the patient's identity and planned procedure. Fluoroscopy time has been recorded in the electronic medical record. Maximum sterile barriers including cap, mask, hand hygiene, sterile gloves, sterile gown, large sterile drape and 2% chlorhexidine for cutaneous antisepsis were used. A fluoroscopic image was recorded prior to the beginning of the procedure. The skin adjacent to the right chest wall port was sterilely prepped, draped and infiltrated with 1% lidocaine. After making a short transverse incision, the port reservoir was freed using a combination of sharp and blunt dissection. The catheter was then removed. A fluoroscopic image was recorded following removal of the port. The deep tissues were approximated using 2-0 Vicryl and 4-0 Monocryl and the incision closed using skin glue. ESTIMATED BLOOD LOSS: Minimal. CONDITION: Stable DISCHARGED TO: home FINDINGS: The port site showed no purulence or other evidence of infection. IMPRESSION: Successful port removal. Electronically signed by: Jp Hopson M.D. Requested By: ANITA GILLESPIE M.D. Dictated By: MANDEEP GIBBONS M.D. on Jan 13 2018 9:21A This document has been electronically signed by: JP HOPSON M.D. on Jan 13 2018 1:17P [id number] KAHN M.D. FINAL REPORT The radiology attending physician has personally reviewed this study, and has reviewed and/or edited this written report and agrees with it. Attending: ISAURA FLORES Requesting: ANITA GILLESPIE Requesting Fax: Attending Fax: Attending ID: [id number] Requesting ID: [id number] Report To 1 ID: [id number] Report To 1 Name: , Report To 1 FAX: NextGen Order #: us Anita Gillespie MD IMG IR PROCEDURES Final Re sult * VENOUS ACCESS (01/13/2018 2:12 PM CDT) Anatomical Region Laterality Modality N/A Radiographic Shilpi ging 01/13/2018 2:12 PM CDT Narrative 01/13/2018 6:19 PM CDT JP HOPSON M.D. MANDEEP GIBBONS M.D. FINAL REPORT The radiology attending physician has personally reviewed this study, and has reviewed and/or edited this written report and agrees with it. ACC# ??Date Time ??Exam [id number] Jan 13, 2018 09:12:00 [id number] Fluoro Nathan Accs R [id number] Jan 13, 2018 09:12:00 [id number] Remove Port R EXAMINATION: ??PORT REMOVAL HISTORY: 22-year-old male with history of lymphoma, port no longer needed. ATTENDING PRESENCE: Jp Hopson M.D., the attending radiologist was present from the beginning to the end of the procedure. ?? SEDATION: The patient did not require conscious sedation. TECHNIQUE: The risks, benefits and alternatives were discussed and informed consent was obtained. ??Prior to beginning the procedure, Fordyce Protocol was used to confirm the patient's identity and planned procedure. ??Fluoroscopy time has been recorded in the electronic medical record. Maximum sterile barriers including cap, mask, hand hygiene, sterile gloves, sterile gown, large sterile drape and 2% chlorhexidine for cutaneous antisepsis were used. ??A fluoroscopic image was recorded prior to the beginning of the procedure. ??The skin adjacent to the right chest wall port was sterilely prepped, draped and infiltrated with 1% lidocaine. ?? After making a short transverse incision, the port reservoir was freed using a combination of sharp and blunt dissection. ??The catheter was then removed. ??A fluoroscopic image was recorded following removal of the port. ??The deep tissues were approximated using 2-0 Vicryl and 4-0 Monocryl and the incision closed using skin glue. ESTIMATED BLOOD LOSS: Minimal. CONDITION: Stable DISCHARGED TO: home FINDINGS: The port site showed no purulence or other evidence of infection. IMPRESSION: ??Successful port removal. Electronically signed by: Jp Hopson M.D. Requested By: ANITA GILLESPIE ??MMarcoDMarco ? Dictated By: ?? MANDEEP GIBBONS M.D. ??on Jan 13 2018 ??9:21A This document has been electronically signed by: JP HOPSON M.D. on Jan 13 2018 ??1:17P Stephon KAHN M.D. FINAL REPORT The radiology attending physician has personally reviewed this study, and has reviewed and/or edited this written report and agrees with it. Attending: ??MARTI, ??ISAURA Requesting: ??BERNADETTE, ??ANITA Requesting Fax: ?? Attending Fax: ?? Attending ID: ??[id number] Requesting ID: ??[id number] Report To 1 ID: ??[id number] ? Report To 1 Name: ??, ?? Report To 1 FAX: ?? NextGen Order #: ?? Procedure Note Miscellaneous, Not In File - 01/13/2018 Stephon KAHN M.D. FINAL REPORT The radiology attending physician has personally reviewed this study, and has reviewed and/or edited this written report and agrees with it. ACC# Date Time Exam [id number] Jan 13, 2018 09:12:00 [id number] Fluoro Nathan Accs R [id number] Jan 13, 2018 09:12:00 [id number] Remove Port R EXAMINATION: PORT REMOVAL HISTORY: 22-year-old male with history of lymphoma, port no longer needed. ATTENDING PRESENCE: Jp Hopson M.D., the attending radiologist was present from the beginning to the end of the procedure. SEDATION: The patient did not require conscious sedation. TECHNIQUE: The risks, benefits and alternatives were discussed and informed consent was obtained. Prior to beginning the procedure, Fordyce Protocol was used to confirm the patient's identity and planned procedure. Fluoroscopy time has been recorded in the electronic medical record. Maximum sterile barriers including cap, mask, hand hygiene, sterile gloves, sterile gown, large sterile drape and 2% chlorhexidine for cutaneous antisepsis were used. A fluoroscopic image was recorded prior to the beginning of the procedure. The skin adjacent to the right chest wall port was sterilely prepped, draped and infiltrated with 1% lidocaine. After making a short transverse incision, the port reservoir was freed using a combination of sharp and blunt dissection. The catheter was then removed. A fluoroscopic image was recorded following removal of the port. The deep tissues were approximated using 2-0 Vicryl and 4-0 Monocryl and the incision closed using skin glue. ESTIMATED BLOOD LOSS: Minimal. CONDITION: Stable DISCHARGED TO: home FINDINGS: The port site showed no purulence or other evidence of infection. IMPRESSION: Successful port removal. Electronically signed by: Jp Hopson M.D. Requested By: ANITA GILLESPIE M.D. Dictated By: MANDEEP GIBBONS M.D. on Jan 13 2018 9:21A This document has been electronically signed by: JP HOPSON M.D. on Jan 13 2018 1:17P Stephon KAHN M.D. FINAL REPORT The radiology attending physician has personally reviewed this study, and has reviewed and/or edited this written report and agrees with it. Attending: ISAURA FLORES Requesting: ANITA GILLESPIE Requesting Fax: Attending Fax: Attending ID: [id number] Requesting ID: [id number] Report To 1 ID: [id number] Report To 1 Name: , Report To 1 FAX: NextGen Order #: Anita Gillespie MD IMG XR PROCEDURES Final Re sult documented in this encounter Visit Diagnoses Not on filedocumented in this encounter Care Teams International Sales Representative Relationship Specialty Start Date End Date Kali Cruz MD [address] [facility] [address] [place] [address] PCP - General 04/09/17 03/21/19 documented as of this encounter
--- OUTSIDE RECORDS SUMMARY | 2024-10-28 06:28 | XMS_ITS | Encounter Summary ---
Author Organization [facility] Healthcare Address [address] [place] [address] Care Team Providers Care Co Teacher Name Role Phone Kali Cruz MD Primary Care Provider [phone] Encounter Details Date Type Department Care Team (Latest Contact Info) Description 12/12/2017 11:21 AM PLANT ECOLOGIST - 12/12/2017 7:23 PM PLANT ECOLOGIST Hospital Encounter [facility] OP INTERIM [phone] Anita Gillespie MD [address] [facility] [address] [place], [place] [id number] Discharge Disposition: Discharge to home or self care Social History Tobacco Use Types Packs/Day Years Used Date Smoking Tobacco: Never Sex and Gender Information Value Date Recorded Sex Assigned at Not on file 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 Gender Identity Not on file Sexual Orientation Straight 08/22/2021 9: 23 AM CDT documented as of this encounter Last Filed Vital Signs Vital Sign Reading Time Taken Comments Blood Pressure 104/62 12/12/2017 11:27 AM PLANT ECOLOGIST Pulse 82 12/12/2017 11:27 AM PLANT ECOLOGIST Temperature - - Respiratory Rate - - Oxygen Saturation 100% 12/12/2017 11:27 AM PLANT ECOLOGIST Inhaled Oxygen Concentration - - Weight 58 kg (127 lb 15.6 oz) 12/12/2017 11:27 A M PLANT ECOLOGIST Height 172.7 cm (5' 8 ) 12/12/2017 11:27 AM PLANT ECOLOGIST Body Mass Index 19.46 12/12/2017 11:27 AM PLANT ECOLOGIST documented in this encounter Medications at Time [...] Priority Date/Time Associated Diagnosis Comments LACTATE DEHYDROGENASE STAT 12/12/2017 12:38 PM PLANT ECOLOGIST documented in this encounter Results * (ABNORMAL) Lactate dehydrogenase (LD) (12/12/2017 12:38 PM PLANT ECOLOGIST) Lactate dehydrogenase (LDH) 424(H) 100 - 250 Units/L [facility] Blood specimen (specimen) 12/12/2017 12:38 PM PLANT ECOLOGIST 12/12/2017 2:31 PM PLANT ECOLOGIST Narrative [facility] - 12/12/2017 2:59 PM PLANT ECOLOGIST us Anita Gillespie MD LAB BLOOD ORDERABLES Final Result [facility] Department of Laboratories [place], [place] [id number] documented in this encounter Visit Diagnoses Not on filedocumented in this encounter Care Teams Co Teacher Relationship Specialty Start Date End Date Kali Cruz MD [address] [place] [address] [place] [address] PCP - General 04/09/17 03/21/19 documented as of this encounter
--- OUTSIDE RECORDS SUMMARY | 2024-10-28 06:28 | XMS_ITS | Encounter Summary ---
Author Organization [facility] Healthcare Address [address] [place] [address] Care Team Providers Care Software Engineer Advisor Name Role Phone Kali Cruz MD Primary Care Provider [phone] Encounter Details Date Type Department Care Team (Latest Contact Info) Description 07/30/2017 7:19 AM CDT - 07/30/2017 11:59 PM CDT Hospital Encounter [facility] OP INTERIM [phone] Stan Valdes MD [address] [facility] [address] [place], [place] [id number] Discharge Disposition: Discharge to home or self care Social History Tobacco Use Types Packs/Day Years Used Date Smoking Tobacco: Never Assessed Sex and Gender Information Value Date Recorded Sex Assigned at Not on file 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 Gender Identity Not on file Sexual Orientation Straight 08/22/2021 9: 23 AM CDT documented as of this encounter Last Filed Vital Signs Vital Sign Reading Time Taken Comments Blood Pressure - - Pulse - - Temperature - - Respiratory Rate - - Oxygen Saturation - - Inhaled Oxygen Concentration - - Weight 56.2 kg (123 lb 15.8 oz) 07/30/2017 7:51 AM CDT Height 172.7 cm (5' 8 ) 07/30/2017 7:51 AM CDT Body Mass Index 18.85 07/30/2017 7:51 AM CDT documented in this encounter Medications [...] Procedure Name Priority Date/Time Associated Diagnosis Comments ANTIBODY IDENTIFICATION After X-Ray 07/30/2017 10:28 AM CDT TYPE AND SCREEN 14 DAY After X-Ray 7 8:50 AM CDT CBC WITHOUT DIFFERENTIAL After X-Ray 07/30/2017 8:50 AM CDT DIRECT ANTIGLOBULIN TEST After X-Ray 07/30/2017 8:50 AM CDT PACKED RED BLOOD CELLS 1 After X-Ray 07/30/2017 8:45 AM CDT DISCHARGE LABORATORY CUMULATIVE REPORT 07/30/2017 12:00 AM CDT documented in this encounter Results * Antibody identification (07/30/2017 10:28 AM CDT) Antibody ID 1 Cold Auto Antibody [facility] Blood specimen (specimen) 07/30/2017 10:28 AM CDT 07/30/2017 10:28 AM CDT Melissa Munguia NP LAB BLOOD BANK TEST ORDERABLES Final Result [facility] Department [place] [address] * Direct antiglobulin test (07/30/2017 8:50 AM CDT) Direct Carol BS Interpretation Negative [facility] Blood specimen (specimen) 07/30/2017 8:50 AM CDT 07/30/2017 9:22 AM CDT Melissa Munguia TALENT SCOUT LAB BLOOD BANK TEST ORDERABLES Final Result Performing Organization Address City/[facility] Co de Phone Number [facility] [place] [address] * TYPE AND SCREEN 14 DAY (07/30/2017 8:50 AM CDT) Pathologist [facility] Carol, indirect Positive [facility] ABO Rh A Positive [facility] Blood specimen (specimen) 07/30/2017 8:50 AM CDT 07/30/2017 9:22 AM CDT Melissa Munguia TALENT SCOUT LAB BLOOD BANK TEST ORDERABLES Final Result Performing Organization Address [facility] de Phone Number [facility] Department [place] [address] * (ABNORMAL) CBC without differential (07/30/2017 8:50 AM CDT) [facility] WBC 7.12 3.80 - 9.90 K/cumm [facility] RBC 5.13 4.30 - 5.80 M/cumm [facility] Hgb 15.5 13.0 - 17.5 g/dL [facility] Hct 44.8 38.9 - 50.3 % [facility] MCV 87.3 81.3 - 96.4 fL [facility] MCH 30.2 27.1 - 33.3 pg [facility] MCHC 34.6 32.3 - 35.7 g/dL [facility] RDW CV 13.8 11.1 - 14.9 % [facility] RDW SD 44.1 35.7 - 48.1 fL [facility] NRBC 0.0 0.0 - 0.2 % [facility] NRBC abs 0.00 0.00 - 0.01 K/cumm [facility] Plt 107(L) 150 - 400 K/cumm [facility] Comment:No clot detected in sample. MPV 10.5 9.1 - 12.3 fL [facility] Blood specimen (specimen) 07/30/2017 8:50 AM CDT 07/30/2017 9:29 AM CDT Melissa Munguia NP LAB BLOOD ORDERABLES Final Resu lt Performing Organization Address [facility] Co de Phone Number [facility] [place] [address] * Packed Red Blood Cells 1 (07/30/2017 8:45 AM CDT) RBC, Leukoreduced PROD_CD :E0336 -1 RED BLOOD CELLS, LEUKOCYTES REDUCED UNIT_ID :[id number] -K ABORHP :A POS PROD_STAT :RETURNED [facility] Blood specimen (specimen) 07/30/2017 8:45 AM CDT 07/30/2017 8:46 AM CDT Narrative [facility] - 08/02/2017 10:23 PM CDT Reason:Prepare product for intraoperative transfusion us Melissa Munguia NP LAB BLOOD ORDERABLES Final Resu lt Performing Organization Address [facility] Co de Phone Number [facility] [place] [address] * DISCHARGE LABORATORY CUMULATIVE REPORT (07/30/2017 12:00 AM CDT) Narrative 07/30/2017 12:00 AM CDT Ordered by an unspecified provider. us Historical Provider LAB BLOOD ORDERABLES Chata l Result documented in this encounter Visit Diagnoses Not on filedocumented in this encounter Care Teams Software Engineer Advisor Relationship Specialty Start Date End Date Kali Cruz MD [address] [place] [address] PCP - General 04/09/17 03/21/19 documented as of this encounter
--- OUTSIDE RECORDS SUMMARY | 2024-10-28 06:28 | XMS_ITS | Encounter Summary ---
Author Organization [facility] Healthcare Address [address] [place] [address] Care Team Providers Care Manager Neonatal Name Role Phone Kali Cruz MD Primary Care Provider [phone] Encounter Details Date Type Department Care Team (Latest Contact Info) Description 09/19/2017 8:02 AM 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 MACHINE TENDER - 09/19/2017 3:57 PM 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 MACHINE TENDER Hospital Encounter [facility] OP INTERIM [phone] Anita Gillespie MD [address] [facility] [address] [place], [place] [id number] Discharge Disposition: Discharge to home or self care Social History Tobacco Use Types Packs/Day Years Used Date Smoking Tobacco: Never Assessed Sex and Gender Information Value Date Recorded Sex Assigned at Not on file Legal Sex Male 6:28 AM 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 TENDER Gender Identity Not on file Sexual Orientation Straight 08/22/2021 9: 23 AM CDT documented as of this encounter Last Filed Vital Signs Vital Sign Reading Time Taken Comments Blood Pressure 132/76 09/19/2017 2:10 PM 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 MACHINE TENDER Pulse 73 09/19/2017 2:10 PM 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 MACHINE TENDER Temperature - - Respiratory Rate - - Oxygen Saturation 98% 09/19/2017 2:10 PM 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 MACHINE TENDER Inhaled Oxygen Concentration - - Weight 57.2 kg (125 lb 15.9 oz) 09/19/2017 8:14 AM 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 MACHINE TENDER Height 172.7 cm (5' 8 ) 09/19/2017 8:14 AM 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 MACHINE TENDER Body Mass Index 19.16 09/19/2017 8:14 AM 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 MACHINE TENDER documented in this encounter Medications [...] filedocumented in this encounter Care Teams Manager Neonatal Relationship Specialty Start Date End Date Kali Cruz MD [address] [facility] [address] [facility] [address] [place] [address] PCP - General 04/09/17 03/21/19 documented as of this encounter
--- OUTSIDE RECORDS SUMMARY | 2024-10-28 06:28 | XMS_ITS | Encounter Summary ---
Author Organization [facility] Healthcare Address [address] [place] [address] Care Team Providers Care Saw Man Name Role Phone Kali Cruz MD Primary Care Provider Encounter Details Date Type Department Care Team (Latest Contact Info) Description 08/03/2017 6:15 AM CDT - 08/03/2017 12:56 PM CDT Hospital Encounter [facility] [phone] Stan Valdes MD [address] [facility] [address] [place], [place] [id number] Discharge Disposition: Discharge to home or self care Social History Tobacco Use Types Packs/Day Years Used Date Smoking Tobacco: Never Assessed Sex and Gender Information Value Date Recorded Sex Assigned at Not on file 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 Surgeon: Stan Valdes M.D. Dictating: Stan Valdes M.D. Service Dt: 08/03/2017 OPERATIVE REPORT FACILITY ID: [facility] SUR[facility]ON Stan Valdes MD FIRST DAIRY TESTER Noe Her MD SECOND BANANA CARRIER Robel Sheffield, medical student PREOPERATIVE DIAGNOSIS Right-sided lymphadenopathy suspicious for posttransplant lymphoproliferative disorder. POSTOPERATIVE DIAGNOSIS Right-sided lymphadenopathy suspicious for posttransplant lymphoproliferative disorder. PROCEDURE PERFORMED Right excisional lymph node biopsy. REASON FOR PROCEDURE A 22-year-old gentleman who has a history of a liver transplant as well as refractory ITP status post splenectomy. He was found to have large lymph nodes a couple months ago and had an excisional lymph node biopsy at that point, but follows with my colleague Dr. Norris. 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 He has had some mixed results after changing around the medications. We are now asked to perform an additional excisional lymph node biopsy for diagnosis. Preoperatively, he was informed about the risks and benefits of the procedure and that this was a mainly diagnostic procedure. The specific risks that we discussed was injury to marginal nerve XI, XII, as well as vascular injury and need for further surgical interventions. Despite those risks, he wanted proceed. PROCEDURE IN DETAIL The patient was identified in the preoperative area. Consent was confirmed in the chart. He was then brought back to the operative suite, placed in supine position. General anesthesia was induced. The patient was orally intubated. The patient's neck was prepped and draped in a standard sterile fashion. Before we began with surgery, we performed a final timeout. We used the previous incision and marked out about 5 mm on each side and excised this area after 1% lidocaine with 1:200,000 epinephrine had been injected. We then raised subplatysmal flaps in a very scarred area. At this point, we started skeletonizing the SCM. External jugular vein was divided. We followed the SCM all the way up until the level was encountered. The nerve was preserved throughout the entire procedure. At this point, we then dissected along the inferior aspect of the submandibular gland and divided the facial vein. We then followed the posterior wall of digastric all the way to the mastoid tip. At this point, there was a lot of adherent tissue in this area and to safely continue with the dissection we more or less did neck dissection. We identified the carotid sheath and dissected in a medial to lateral fashion. At this point, we then could dissect around the nose down towards the prevertebral fascia and get the tissue from the upper level 5 area. All the tissue in the 2A anterior 2A, 3, were removed. We felt that we had plenty of tissue and we also was debulked some of the lymphadenopathy for cosmetic reasons. At this point, hemostasis was achieved. Fibrillar was placed in the wound. A 15 Eleuterio drain was placed in the neck and secured to the skin using 2-0 silk. The neck was then closed in layers with 3-0 Vicryl for deep dermal and then dermal glue Exofin was used for the epidermis. This marked the end of procedure. The patient returned to the children's program coordinator. The patient tolerated procedure well. ATTESTATION OF PRESENCE I was present and performed the entirety of the procedure. Electronically Authenticated and Edited by: Severino Valdes MD On 08/09/2017 07:30 AM CDT Stan Valdes M.D. PP:[facility] #[id number] Editing MT: TD: 08/03/2017 10:37 AM cc: Stan Valdes M.D. documented in this encounter Plan of Treatment Scheduled Procedures Name Priority Associated Diagnoses Date/Ti me COLONOSCOPY Encounter for screening for colorectal cancer in high risk patient Family history of rectal cancer documented as of this encounter Procedures Procedure Name Priority Date/Time Associated Diagnosis Comments SURGICAL PATHOLOGY Routine 08/03/2017 8: 30 AM CDT CBC WITHOUT DIFFERENTIAL STAT 08/03/2017 5:48 AM CDT CYTOGENETICS AND GENOMICS Routine 08/03/2017 12:00 AM CDT SURGICAL PATHOLOGY 08/03/2017 12 :00 AM CDT documented in this encounter Results * Surgical pathology (08/03/2017 8:30 AM CDT) 08/03/2017 8:30 AM CDT 08/03/2017 9:57 AM CDT Narrative 08/09/2017 1:59 PM CDT [facility] Yulisa Garcia [facility] [place] [address] SURGICAL PATHOLOGY REPORT FINAL WITH ADDENDUM Patient Name: ADI NICHOLS ? Address: [address] [place] [address] ??Service: ??Otolaryngology ??[place], [place] ??[id number] ??Location: ??[facility] Taken: 08/03/2017 Gender: M ?? Received: 08/03/2017 : 1995 (Age: 22) Hospital #: ??[id number] Accessioned: 08/03/2017 ?Patient Type: ??BJ SDS Reported: 08/09/2017 ? Physician(s): Stan Valdes M.D. ? 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 See comment nxr/08/06/2017 19:11 By this signature, I attest that the above diagnosis is based upon my personal examination of the slides(and/or other material indicated in the diagnosis). ?? Parish Ricks M.D. ??Report Electronically Reviewed and Signed Out By ??Parish Ricks M.D. 08/09/2017 13:59:39 Microscopic Description and Comment: Sections of the lymph nodes show diffuse infiltration of medium size monomorphic cells with abundant cytoplasm and noncleaved round nuclei and apoptotic tingible body macrophages (starry pamela appearance). Immunohistochemistry studies show diffuse CD20 expression with CD10 and BCL-6 coexpression. ??BCL-2 is negative. ??C-MYC is positive in more than 90% of the cells. ??JAKOB is diffusely positive. ??Ki-67 shows 95% positivity. ??MUM1 highlights scattered positive cells. ??CD21 and CD23 highlight residual follicular dendritic cells. ??Cyclin D1 is negative for neoplastic cells. ??CD30 is negative. ??CD5 and CD3 highlight T lymphocytes. In summary, findings are diagnostic for posttransplant lymphoproliferative disorder (PTLD). ??Morphologic and immunophenotypic features may be seen in Burkitt lymphoma or aggressive lymphomas with double hit (i.e. myc and bcl2 or bcl6 rearrangement). Notably, the previous specimen had MYC and IGH rearrangement. ??Fluorescence In- situ hybridization (FISH) analysis of this specimen is pending and findings will be reported in an addendum. ?Virginia Borjas M.D. ?History: The patient is a 22-year-old man with a concern for lymphoproliferative disorder. ??We performed a core needle biopsy that did not reveal a definitive answer and therefore we were requested by the primary team to perform excisional node biopsy. Operative procedure: Excision node right lymph node biopsy. Specimen(s) Received: A: Level 1 B right B: Level 2 right Gross Description: The specimens are received in two formalin-filled containers each labeled the patient's name. A. ?The first container is also labeled level IB right . ??It consists of two fragments of yellow/pink tissue, measuring 1.6 x 0.8 x 0.6, and 0.9 x 0.9 x 0.5 cm, respectively. ??Entirely submitted. Labeled A1. Jar 0. B. ?The second container is also labeled level II right . ??It contains multiple fragments of dark red/yellow tissue, measuring 7.0 x 4.5 x 2.0 cm in aggregate. ??The tissue is dissected to show five enlarged lymph nodes. ??The first enlarged lymph node measures 1.8 x 1.2 x 2.7 cm and was dissected to show a white/preston gelatinous cut surface. The second enlarged lymph node measures 2.6 x 2.6 x 1.2 cm, and is dissected to show a preston/white cut surface. The third enlarged lymph nodes measures 3.0 x 2.5 x 1.5 cm and is dissected to show a preston/pink cut surface. The fourth enlarged lymph node measures 2.2 x 1.7 x 0.7 cm and is dissected to show homogenous white/pink cut surface. The fifth largest lymph nodes measures 2.5 x 2.0 x 1.2 cm and is dissected to show dark red/yellow cut surface. Two account representative sections per enlarged lymph node are submitted for microscopic examination. Labeled B1 to B2 ??first enlarged lymph node; B3 and B4-second enlarged lymph node; B5 and B6-third enlarged lymph node; B7 and B8- 4th enlarged lymph node; B9 and B10-the fifth enlarged lymph node. ??Jar 1. hxz/08/03/2017 15:17 ?Lizz Salas MD PhD ? By this signature, I attest that the above diagnosis is based upon my personal examination of the slides(and/or other material). ?? Addenda/Procedures Addendum Ordered: 08/10/2017 Status: Signed Out Addendum Complete: 08/10/2017 By: Parish Ricks M.D. Addendum Signed Out: 08/10/2017 ?? Addendum Diagnosis A digital scan of the original reference lab report will begin on page two of this addendum. By this signature, I attest that the above diagnosis is based upon my personal examination of the slides(and/or other material indicated in the diagnosis). ?? Parish Ricks M.D. ??Report Electronically Reviewed and Signed Out By ??Parish Ricks M.D. ??08/10/2017 14:54:47 ? Addendum Ordered: 09/21/2017 Status: Signed Out Addendum Complete: 09/21/2017 By: Parish Ricks M.D. Addendum Signed Out: 09/21/2017 ?? 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 By this signature, I attest that the above diagnosis is based upon my personal examination of the slides(and/or other material indicated in the diagnosis). ?? Parish Ricks M.D. ??Report Electronically Reviewed and Signed Out By ??Parish Ricks M.D. ??09/21/2017 14:28:46 ? Surgical Pathology report is available electronically in Clinical Desktop. The performance characteristics of some immunohistochemical stains, fluorescence in-situ hybridization tests and immunophenotyping by flow cytometry cited in this report (if any) were determined by the Surgical Pathology Department at [facility] as part of an ongoing dairy quality assurance officer program and in compliance with federally mandated [...] determined by the Surgical Pathology Department of [facility]. ??It has not been cleared or approved by the U. S. Food and Drug Administration. Stan Valdes MD LAB PATHOLOGY ORDERABLES Edite d Result - Final * (ABNORMAL) CBC without differential (08/03/2017 5:48 AM CDT) WBC 18.10(H) 3.80 - 9.90 K/cumm [facility] RBC 4.76 4.30 - 5.80 M/cumm [facility] Hgb 14.7 13.0 - 17.5 g/dL [facility] Hct 41.0 38.9 - 50.3 % [facility] MCV 86.1 81.3 - 96.4 fL [facility] MCH 30.9 27.1 - 33.3 pg [facility] MCHC 35.9(H) 32.3 - 35.7 g/dL [facility] RDW CV 14.4 11.1 - 14.9 % [facility] RDW SD 45.3 35.7 - 48.1 fL [facility] NRBC 0.0 0.0 - 0.2 % [facility] NRBC abs 0.00 0.00 - 0.01 K/cumm [facility] Plt 388 150 - 400 K/cumm [facility] MPV 10.4 9.1 - 12.3 fL [facility] Blood specimen (specimen) 08/03/2017 5:48 AM CDT 08/03/2017 6:05 AM CDT Stan Valdes MD LAB BLOOD ORDERABLES Final Res ult [facility] Department [place] [address] * SURGICAL PATHOLOGY (08/03/2017 12:00 AM CDT) Narrative 08/03/2017 12:00 AM CDT Ordered by an unspecified provider. [facility] Provider LAB PATHOLOGY ORDERABLES Final Result * Cytogenetics/Genomics (08/03/2017 12:00 AM CDT) 08/03/2017 08/05/2017 Narrative 08/09/2017 2:38 PM CDT Patient Information Visit Information Specimen Information ??Name: ADI NICHOLS Culture #: [id number] Gender: [facility] #: [id number] Date Collected: 08/03/2017 : 1995 (Age: 22) Facility: [facility] Date Accessioned: 08/06/2017 Tissue: FFPE FISH Service: [facility] Date Ordered: 08/05/2017 ?? Location: [facility] ? Patient Type: [facility] ?? Physician(s): Stan Valdes M.D. ?? Processing: FFPE FISH - Lymph Node, level 2 right Indication: The patient is a 22-year-old man with a concern for lymphoproliferative disorder. ??We performed a core needle biopsy that did not reveal a definitive answer and therefore we were requested by the primary team to perform excisional node biopsy. Operative procedure: Excision node right lymph node biopsy. Specimen Quality: Adequate FISH: ??FFPE ??CLINICAL REPORT ?? PARAFFIN EMBEDDED FISH ?? Fluorescence In-situ hybridization (FISH) Results: Specimen # [id number] POSITIVE - FISH result for MYC gene rearrangement NEGATIVE - FISH result for IGH-BCL2 translocation NEGATIVE - FISH result for BCL6 gene rearrangement nuc lalo(MYCx3)[34/200]/(MYCx2)(5'MYC sep 3'MYCx1)[22/200]/(MYCx4)[7/200]/ (5'MYCx1~2,3'MYCx1)(5'MYC con 3'MYCx0)[2/200]/(MYCx3)(5'MYC sep 3'MYCx1)[2/200]/ (MYCx4)(5'MYC sep 3'MYCx1)[1/200]/(5'MYCx2,3'MYCx3)(5'MYC con 3'MYCx1)[1200]/ (5'MYCx3,3'MYCx2)(5'MYC con 3'MYCx1)[1/200]/(MYCx2)[100/200] nuc lalo(IGHx3,BCL2x2)[29200]/(IGH,BCL2)x3[]/(IGHx2,BCL2x3)[17200]/(IGH,BCL2) x4~5[ 200]/ (IGHx3,BCL2x1)[200]/(IGHx2~3,BCL2x4)[200]/(IGHx4~5,BCL2x3)[200]/(IGHx1,BCL 2x3)[ 200]/ (IGH,BCL2)x2[71/200] nuc lalo(BCL6x3)[300]/(BCL6x4)[300]/(BCL6x5~6)[300]/(BCL6x3)[217/300] Comments MYC ??FISH FISH was performed utilizing a commercial MYC (8q24) breakapart probe set ([employer], [place], [place]). 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 A gain of MYC was seen in 20.5%, the significance of which, if any, is unclear. The above test was developed and its performance characteristics determined by [facility]. It has not been cleared or approved by the FDA. The laboratory is regulated under CLIA as qualified to perform high- complexity testing. This test is used for clinical purposes. It should not be regarded as investigational or for research. IGH-BCL2 ??FISH FISH was performed utilizing a commercial IGH-BCL2 dual fusion probe set ([employer], [place], [place]). ??In this particular case, no dual-fused signals were found in 200 interphase cells examined, indicating that there is no t(14;18) translocation involving these two genes. ??A gain of IGH, ranging from 3 to a high of 5 copies, was noted in 35.5%; additionally, a gain of BCL2, ranging from 3 to a high of 5 copies, was noted in 28.5%, the clinical significance of which, if any, is unclear. ?? The above test was developed and its performance characteristics determined by [facility]. It has not been cleared or approved by the FDA. The laboratory is regulated under CLIA as qualified to perform high- complexity testing. This test is used for clinical purposes. It should not be regarded as investigational or for research. BCL6 ??FISH FISH was performed utilizing a commercial BCL6 (3q27) break-apart probe set ([employer], [place], [place]). ??In this particular case, there was no split of SpectrumOrange and SpectrumGreen signals in 300 interphase nuclei examined and therefore, no evidence for a BCL6-containing chromosomal rearrangement. A gain of BCL6 was seen in 11.33%, the significance of which, if any, is unclear. The above test was developed and its performance characteristics determined by [facility]. It has not been cleared or approved by the FDA. The laboratory is regulated under CLIA as qualified to perform high- complexity testing. This test is used for clinical purposes. It should not be regarded as investigational or for research. Comment: ??The interphase nuclei analyzed in this case were obtained in the area(s) designated on a marked H&E stained slide, provided by the ordering pathologist. ? Report Electronically Reviewed and Signed Out By Cliff Ribeiro M.D. ??Date Reported: ??08/09/2017 ?? Stan Valdes MD LAB GENETIC TESTING Final Resu lt documented in this encounter Visit Diagnoses Not on filedocumented in this encounter Care Teams Saw Man Relationship Specialty Start Date End Date Kali Cruz MD [address] [facility] [address] [place] [address] PCP - General 04/09/17 03/21/19 documented as of this encounter
--- OUTSIDE RECORDS SUMMARY | 2024-10-28 06:28 | XMS_ITS | Encounter Summary ---
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 Gender Identity Not on file Sexual Orientation Straight 08/22/2021 9: 23 AM CDT documented as of this encounter Plan of Treatment Scheduled Procedures Name Priority Associated Diagnoses Date/Ti me COLONOSCOPY Encounter for screening for colorectal cancer in high risk patient Family history of rectal cancer documented as of this encounter Procedures Procedure Name Priority Date/Time Associated Diagnosis Comments MORPHOLOGY EXAM Routine Gen Lab 05/07/2017 1:47 PM CDT documented in this encounter Results * (ABNORMAL) Morphology exam (05/07/2017 1:47 PM CDT) Myelocyte pct 1(H) 0 - 0 % [facility] Band Neutrophil pct 2 0 - 6 % [facility] Neutrophils 31(L) 44 - 80 % [facility] Lymphocytes 36 8 - 44 % [facility] Abnormal Lymphocyte 2(H) 0 - 0 % [facility] Immature Lymphocyte 2(H) 0 - 0 % [facility] Monos 18(H) 2 - 8 % [facility] Eosinophils 8(H) 0 - 6 % [facility] Cells Diffed - CAM 100 [facility] Platelet estimate Decreased Adequate [facility] Polychromia - CAM Slight None Seen [facility] Anisocytosis - CAM Slight None Seen [facility] Blood specimen (specimen) 05/07/2017 1:47 PM CDT 05/07/2017 1:58 PM CDT Regine Garcia MD LAB BLOOD ORDERABLES Final Result [facility] Department [place] [address] documented in this encounter Visit Diagnoses Not on filedocumented in this encounter Additional Health Concerns Infection Onset Date Last Indicated Resolved Time MSSA Comment:Resolved - Flag applied in error. 03/11/2017 03/11/2017 05/31/2017 12:00 AM CDT documented as of this encounter Care Teams Cyber Crime Investigator Relationship Specialty Start Date End Date Kali Cruz MD [address] [place] [address] [place] [address] PCP - General 04/09/17 03/21/19 documented as of this encounter
--- OUTSIDE RECORDS SUMMARY | 2024-10-28 06:29 | XMS_ITS | Encounter Summary ---
Author Organization [facility] Healthcare Address [address] [place] [address] Care Team Providers Care King Maker Name Role Phone Miscellaneous, Not In File Primary Care Provider Unavailable Encounter Details Date Type Department Care Team (Latest Contact Info) Description 01/13/2017 1:06 PM CDT - 01/14/2017 11:59 PM CDT Hospital Encounter [facility] [phone] Regine Garcia MD [address] [facility] [address] [place], [place] [id number] Discharge Disposition: Discharge to home or self care Social History Tobacco Use Types Packs/Day Years Used Date Smoking Tobacco: Never Assessed Sex and Gender Information Value Date Recorded Sex Assigned at Not on file 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 Gender Identity Not on file Sexual Orientation [...] Procedure Name Priority Date/Time Associated Diagnosis Comments SERUM IGM, QUANTITATIVE Routine 01/14/2017 12:00 PM CDT SERUM IGG, QUANTITATIVE Routine 01/14/2017 12:00 PM CDT SERUM IGA, QUANTITATIVE Routine 01/14/2017 12:00 PM CDT BLOOD RETICULOCYTE COUNT Routine 01/14/2017 8:43 AM CDT BLOOD CELL COUNT Routine 01/14/2017 8:43 AM CDT documented in this encounter Results * Serum IgM, quantitative (01/14/2017 12:00 PM CDT) IgM 98 40 - 230 mg/dl CDR HISTORICAL RESULTS Serum 01/14/2017 12:0 0 PM CDT Regine Garcia MD LAB BLOOD ORDERABLES Final Result Performing Organization Address [facility] de Phone Number CDR HISTORICAL RESULTS * (ABNORMAL) Serum IgG, quantitative (01/14/2017 12:00 PM CDT) IgG 503(L) 700 - 1600 mg/dl CDR HISTORICAL RESULTS Serum 01/14/2017 12:0 0 PM CDT Regine Garcia MD LAB BLOOD ORDERABLES Final Result Performing Organization Address [facility] de Phone Number CDR HISTORICAL RESULTS * (ABNORMAL) Serum IgA, quantitative (01/14/2017 12:00 PM CDT) IgA <50(L) 70 - 400 mg/dl CDR HISTORICAL RESULTS Serum 01/14/2017 12:0 0 PM CDT Regine Garcia MD LAB BLOOD ORDERABLES Final Result Performing Organization Address [facility] de Phone Number CDR HISTORICAL RESULTS * Blood reticulocyte count (01/14/2017 8:43 AM CDT) Retics 0.5 0.5 - 1.5 % CDR HIST ORICAL RESULTS Blood specimen (specimen) 01/14/2017 8:43 AM CDT Regine Garcia MD LAB BLOOD ORDERABLES Final Result CDR HISTORICAL RESULTS * (ABNORMAL) Blood cell count [CBC] panel, 7 CAM (01/14/2017 8:43 AM CDT) MPV 8.1 6.8 - 10.4 fl CDR HISTORICAL RESULTS WBC 8.4 3.8 - 9.8 K/cumm CDR HISTORICAL RESULTS Neutrophils 46.0 38.7 - 74.5 % CDR HISTORICAL RESULTS RBC 4.78 4.50 - 5.70 M/cumm CDR HISTORICAL RESULTS Lymphocytes 29.5 20.0 - 54.3 % CDR HISTORICAL RESULTS Hgb 15.6 13.8 - 17.2 g/dl CDR HISTORICAL RESULTS Monos 21.1(H) 4.3 - 13.5 % CDR HISTORICAL RESULTS Comment:{Result consistent w ith previously reported values.} Hct 46.0 40.7 - 50.3 % CDR HISTORICAL RESULTS Eosinophils 3.0 0.0 - 6.0 % CDR HISTORICAL RESULTS MCV 96.2 80.0 - 97.6 fl CDR HISTORICAL RESULTS Basophils 0.4 0.0 - 3.0 % CDR HISTORICAL RESULTS MCH 32.6 26.7 - 33.7 pg CDR HISTORICAL RESULTS Neutrophils, abs 3.9 1.8 - 6.6 K/cumm CDR HISTORICAL RESULTS MCHC 33.9 32.7 - 35.5 g/dl CDR HISTORICAL RESULTS Lymphocytes, abs 2.5 1.2 - 3.3 K/cumm CDR HISTORICAL RESULTS Rdw 14.6 11.8 - 14.6 % CDR HISTORICAL RESULTS Monocytes, absolute 1.8(H) 0.2 - 1.2 K/cumm CDR HISTORICAL RESULTS Platelets 241 140 - 440 K/cumm CDR HISTORICAL RESULTS Eosinophils, abs 0.3 0.0 - 0.5 K/cumm CDR HISTORICAL RESULTS Basophils, abs 0.0 0.0 - 0.2 K/cumm CDR HISTORICAL RESULTS Blood specimen (specimen) 01/14/2017 8:43 AM CDT us Regine Garcia MD LAB BLOOD ORDERABLES Final Result CDR HISTORICAL RESULTS documented in this encounter Visit Diagnoses Not on filedocumented in this encounter Care Teams King Maker Relationship Specialty Start Date End Date Miscellaneous, Not In File PCP - General 01/13/17 documented as of this encounter
--- OUTSIDE RECORDS SUMMARY | 2024-10-28 06:29 | XMS_ITS | Encounter Summary ---
Author Organization [facility] Facility Care Team Providers Care Hand Fur Cleaner Name Role Phone Unavailable Primary Care Provider Unavailabl e Encounter Details Date Type Department Care Team (Latest Contact Info) Description 05/16/2015 - 05/16/2015 11:59 PM CDT [facility] [address] 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 08/08/2013 09/28/2018 documented as of this encounter Plan of Treatment Scheduled Procedures Name Priority Associated Diagnoses Date/Ti me COLONOSCOPY Encounter for screening for colorectal cancer in high risk patient Family history of rectal cancer documented as of this encounter Procedures Procedure Name Priority Date/Time Associated Diagnosis Comments BLOOD LYMPHOCYTE, LEUKEMIA/LYMPHOMA Routine 05/16/2015 8:54 AM CDT DISCHARGE LABORATORY CUMULATIVE REPORT 05/16/2015 SURGICAL PATHOLOGY 05/16/2015 documented in this encounter Results * Blood lymphocyte, leukemia/lymphoma (05/16/2015 8:54 AM CDT) CD1 cells Test Completed HISTORICAL RESULTS CD2 cells Test Completed HISTORICAL RESULTS CD3 cells Test Completed HISTORICAL RESULTS CD4 cells Test Completed HISTORICAL RESULTS CD5 cells Test Completed HISTORICAL RESULTS CD7 cells Test Completed HISTORICAL RESULTS CD8 cells Test Completed HISTORICAL RESULTS CD10 cells Test Completed HISTORICAL RESULTS CD19 cells Test Completed HISTORICAL RESULTS CD20 cells Test Completed HISTORICAL RESULTS CD30 cells Test Completed HISTORICAL RESULTS CD45 cells Test Completed HISTORICAL RESULTS CD52 cells Test Completed HISTORICAL RESULTS [place] cells Test Completed HISTORICAL RESULTS Lambda cells Test Completed HISTORICAL RESULTS [place] stain Test Completed HISTORICAL RESULTS Leukemia/lymp josé manuel panel result See separate Surgical Pathology report HISTORICAL RESULTS Leukocyte, NOS 05/16/2015 8: 54 AM CDT Result [facility] Regine Garcia MD LAB BLOOD ORDERABLES Final Result HISTORICAL RESULTS * DISCHARGE LABORATORY CUMULATIVE REPORT (05/16/2015) Narrative 05/16/2015 Ordered by an unspecified provider. Historical Provider LAB BLOOD ORDERABLES [place] Result * Surgical pathology (05/16/2015) Narrative 05/16/2015 Ordered by an unspecified provider. Historical Provider LAB PATHOLOGY ORDERABLES Final Result documented in this encounter Visit Diagnoses Diagnosis Other neutropenia (CMS/HCC) (HCC) Other neutropenia Immune thrombocytopenic purpura (HCC) Immune thrombocytopenic purpura Liver replaced by transplant (HCC) Liver replaced by transplant documented in this encounter
--- OUTSIDE RECORDS SUMMARY | 2024-10-28 06:29 | XMS_ITS | Encounter Summary ---
Author Organization [facility] Facility Care Team Providers Care Case Coordinator Name Role Phone Unavailable Primary Care Provider Unavailabl e Encounter Details Date Type Department Care Team (Latest Contact Info) Description 04/01/2015 12:01 AM CDT - 04/04/2015 4:09 PM CDT Hospital Encounter [facility] Eosinophilic esophagitis; Immune thrombocytopenic purpura (HCC); Hypogammaglobulinemia (HCC); Liver replaced by transplant (HCC); Dysphagia; Foreign body in esophagus; Ulcer of esophagus without bleeding; Enlarged lymph nodes; Other acquired absence of organ; Tobacco use disorder; Other specified viral infection, in conditions classified elsewhere and of unspecified site; Family history of diabetes mellitus; Foreign body accidentally entering other orifice Social History Tobacco Use Types Packs/Day Years Used Date Smoking Tobacco: Never Assessed Sex and Gender Information Value Date Recorded Sex Assigned at Not on file Legal Sex Male 6:28 AM [employer] Gender Identity Not on file Sexual Orientation Straight 08/22/2021 9: 23 AM CDT documented as of this encounter Last Filed Vital Signs Vital Sign Reading Time Taken Comments Blood Pressure 100/63 04/04/2015 3:10 PM CDT Pulse 68 04/04/2015 3:10 PM CDT Temperature - - Respiratory Rate - - Oxygen Saturation 97% 04/04/2015 3:10 PM CDT Inhaled Oxygen Concentration - - Weight 55.1 kg (121 lb 7.9 oz) 03/30/2015 2:35 P M CDT Height 172.7 cm (5' 8 ) 03/30/2015 2:35 PM CDT Body Mass Index 18.47 03/30/2015 2:35 PM CDT documented in this encounter Medications at Time of Discharge predniSONE (DELTASONE) 20 mg tablet Take 10 mg by mouth. 08/08/2013 09/28/2018 documented as of this encounter H&P Notes * Provider, MD Dl - 03/30/2015 12:00 AM CDT Patient: Adi Nichols Reg No: [id number] Formerly [facility] #: [id number] Admit Dt.: 03/30/2015 : 1995 Room No: ER Attending: Sarah Matthew M.D. Dictating: Theodore Fagan M.D. ADMISSION HISTORY PHYSICAL ADMISSION DIAGNOSIS (ES): Thrombocytopenia and dysphagia. CHIEF COMPLAINT: Dysphagia. HISTORY OF PRESENT ILLNESS: Mr. Nichols is a 20-year-old man with history of fulminant hepatitis, status post two liver transplants, idiopathic thrombocytopenic purpura, status post splenectomy, Nadine-Borrego virus viremia, and hypogammaglobulinemia, who is presenting with one week of dysphagia and sore throat. The patient states that about a week ago, he noticed that he started having a sore throat and difficulty swallowing solid foods. Over the past week, he has noticed that he has had increasing difficulty with swallowing solid foods to the point where he can no longer take any solid foods, even those with softer consistency. Every time he tries to eat food now, he states that the food gets stuck in his upper airway. He gags on it, and then proceeds to regurgitate the food. He states that he is not having any issues with liquids at this time. He states that the odynophagia is not limiting his ability to swallow. Rather, he feels that food is just getting stuck in his throat. He denies having any sensations of food getting stuck in his chest or sticking in his chest. He states that this has happened once before about a month ago; however, at that time, the dysphagia was not as severe and self resolved within one week. Otherwise, he denies any fevers or chills. He does endorse one episode of night sweats over this past week. He denies any abdominal pain, any nausea. He does endorse some loose stools over the past couple of days; however, he has only been having one bowel movement per day and denies any blood or melena in his stool. Given his inability to take in by mouth, he presented to the Emergency Department. On presentation to the Emergency Department, he was afebrile with a temperature of 37.6. Heart rate of 91. Blood pressure of 109/69. Saturating 96% on room air. Breathing 18 times a minute. While in the Emergency Department, he was given a GI cocktail. He states that his sore throat resolved; however, he did not try to have any by mouth intake at that time. Given his symptoms on physical examination, it was thought that he simply had a viral pharyngitis and was actually safe for discharge; however, a complete blood count came back with platelets of 49. Hematology was consulted and asked for the patient to be admitted to monitor his platelet count. Gastroenterology was also consulted given his history of liver transplant. Of note, the patient follows with Dr. Regine Garcia for his idiopathic thrombocytopenic purpura and has been treated with IVIG, as well as prednisone in the past. He states that he usually knows when his platelet counts are low; however, he has not noticed any petechiae, easy bleeding or bruising that he would usually associate with low platelets. PAST MEDICAL AND SURGICAL HISTORY: Past medical history: 1. Hepatitis at age [age], status post cadaveric liver transplant in March of 1999. His first failed secondary to malfunction of his hepatic artery anastomosis, so he received a second liver transplant from the same donor. 2. Idiopathic thrombocytopenic purpura. He has been treated with prednisone and IVIG in the past. He is status post splenectomy in December of 2012. 3. Nadine-Borrego virus viremia, followed by Dr. Forman of Infectious Disease. His last Nadine-Borrego virus polymerase chain reaction in May of 2014 showed a viral load of 41,695 per milliliter. 4. Cytomegalovirus viremia. The last polymerase chain reaction in May of 2014 showed a detectable cytomegalovirus level, but the level was too low to be quantified. 5. Hypogammaglobulinemia following Rituxan, followed by Dr. Garcia of Hematology. 6. History of lymphadenopathy. The patient presented in May of 2014 with marked cervical, supraclavicular, and pectoral lymphadenopathy. Biopsy at that time showed segments of organized lymphoid tissue reactive changes that were positive for Nadine-Borrego virus staining. Has not had recurrence of lymphadenopathy since then. MEDICATIONS: The patient is currently on Tacrolimus 1.5 milligrams two times per day. ALLERGIES: No known drug allergies. SOCIAL HISTORY: He is single. Denies any alcohol use. States that he does use chewing tobacco and no illicit drug use. FAMILY HISTORY: Family history is reviewed and noncontributory. REVIEW OF SYSTEMS: Review of systems is positive for cough that started the night prior to admission. Of note, he also has a sister who has similar symptoms around the same time frame. All other systems negative. PHYSICAL EXAMINATION: Vital Signs: Temperature 37.6. Heart rate 80. Respiratory rate 18. Saturating 97% on room air. Blood pressure 104/81. HEENT / Neck: Eyes: Pupils are equal, round, and reactive to light. Extraocular movements are intact. Head, eyes, ears, nose, and throat examination: Normocephalic and atraumatic. Neck is supple. Chest: Cardiovascular: Regular rate and rhythm. No murmurs, gallops, or rubs. Lungs: Respiratory williamson is clear to auscultation bilaterally. Abdomen: Gastrointestinal examination: He has a large surgical scar extending down his sternum and across the costophrenic angles bilaterally. Otherwise, normal bowel sounds. Soft, nontender, and nondistended. Lymphatic: On examination, the patient has no appreciable cervical, periauricular, supraclavicular, axillary, or inguinal lymphadenopathy on my examination. Extremities: Musculoskeletal: No cyanosis or clubbing. Neurologic: Neurologically, he is alert and oriented times four with nonfocal examination. Skin: No rash. LABORATORY AND X-RAY DATA: His laboratories: Complete blood count showed: A white count of 5.4 that was notable for an elevated monocyte percentage of 45%. Hemoglobin 13.8. Platelets of 49. Basic metabolic profile showed: Sodium of 138. Potassium of 4.1. Chloride of 103. Bicarbonate of 23. Blood urea nitrogen of 10. Creatinine of 0.81. Calcium of 9.1. Glucose of 98. Comprehensive metabolic profile showed: Total protein of 9.1. Albumin of 6.9. Total bilirubin of 0.2. Aspartate aminotransferase and alanine aminotransferase were 45 and 88. Alkaline phosphatase was 208, that is up from 90 in November. Chest x-ray showed abnormal right hemidiaphragm, likely secondary to surgical changes with surgical clips noted around the liver. Other laboratories: Monoclonal antibody was negative, and Tacrolimus was pending. ASSESSMENT AND PLAN: This is a 20-year-old man with history of fulminant hepatitis, status post liver transplant, idiopathic thrombocytopenic purpura, status post splenectomy, Nadine-Borrego virus viremia, and hypogammaglobulinemia, presenting with dysphagia and sore throat. 1. Dysphagia. Differential diagnosis includes secondary to pharyngitis, likely viral versus external compression from lymphadenopathy that could be from infection or malignant causes versus less likely esophagitis. We will discuss with our attending if we would like to obtain a neck computed tomography scan to evaluate for extrinsic compression given his difficulty with solid foods, but not liquids. We will also check a nasopharyngeal viral polymerase chain reaction, as well as a lactic acid dehydrogenase level. Given his history of cytomegalovirus and Nadine-Borrego virus viremia, we can consider possibly esophagitis; however, the patient's symptoms of upper oropharyngeal pain and food getting stuck in his oropharynx is not consistent with esophagitis. We can hold off on checking viral polymerase chain reactions for now, but that is something to be considered in the future. Given the fact that he is immunosuppressed for his liver transplant, we also have to consider fungal and other atypical infections; however, we will not start workup for those etiologies at this time. 2. Status post liver transplant for fulminant liver failure at age [age]. He is followed by Dr. Gresham, and the Liver Team is aware that he is being admitted to the hospital. We will continue his Tacrolimus 1.5 milligrams two times per day for now. His Tacrolimus level is pending. 3. Idiopathic thrombocytopenic purpura. His current platelets are 49. Hematology is following. We will discuss with them whether we will give him IVIG or steroids. 4. He has a peripheral intravenous line for access. 5. He will be on sequential compression devices for deep venous thrombosis prophylaxis given his thrombocytopenia. 6. He has a mechanical soft diet. 7. He is full code. Theodore Fagan M.D. Electronically Signed By Sarah Matthew M.D. 03/31/2015 03:59 P Sarah Matthew M.D. KZY/[id number] #[id number] Editing MT: TD: 03/30/2015 12:05:00 cc: Stephon Henry M.D. documented in this encounter Consult Notes * Provider, MD Dl - 03/30/2015 12:00 AM CDT Patient: Adi Nichols Reg No: [id number] Formerly [facility] #: [id number] Admit Dt.: 03/30/2015 : 1995 Room No: 70560 Attending: Medicine Medicine Consulting: Massiel Gastelum M.D. Dictating: Laurent Bhakta M.D. Service Dt: 03/30/2015 CONSULTATION REPORT PHYSICIAN REQUESTING CONSULTATION: Mac Lyman M.D. REASON FOR CONSULTATION: Dysphagia. HISTORY OF PRESENT ILLNESS: This is a 20-year-old man who is status post liver transplant times two with idiopathic thrombocytopenic purpura status post splenectomy who presents with dysphagia times one week. He states that over the last week he has had sore throat with increasing difficulty swallowing. The dysphagia is mostly to solid foods and he states that he feels like the food gets stuck in his throat. He points to the level right below his thyroid cartilage as the location where food feels like it is getting stuck. He reports that liquids go down fine with no difficulty. He has had this happen to him once before, but it resolved spontaneously at that time. The patient does have a history of cervical lymphadenopathy which has been previously biopsied and was consistent with reactive lymphadenopathy. It was negative for leukemia/lymphoma at that time. The patient is currently being planned to be admitted to the hospital for further work-up and management of his thrombocytopenia. PAST MEDICAL HISTORY: 1. Fulminant hepatitis, status post liver transplant in 1971, on immunosuppression. 2. Idiopathic thrombocytopenia, status post splenectomy. 3. History of Nadine-Borrego virus viremia. 4. History of CMV viremia. MEDICATIONS: Current medications - Tacrolimus 1.5 mg b.i.d. ALLERGIES: No known drug allergies SOCIAL HISTORY: Chewing tobacco. Does not smoke tobacco, use alcohol, or illicit drugs. FAMILY HISTORY: No family history of dysphagia or esophageal problems. REVIEW OF SYSTEMS: Cardiovascular: Negative. Respiratory: Negative. Gastrointestinal: Negative except as per history of present illness. Genitourinary: Negative. Psychiatric: Negative. Musculoskeletal: Negative. Integumentary: Negative. Neurologic: Negative. PHYSICAL EXAMINATION: Vital Signs: Temperature 37.0, heart rate 88, blood pressure 111/57, oxygen saturation 96% on room air. Constitutional: General; no acute distress, alert and oriented times three, breathing comfortably and quietly on room air. HEENT: Eyes; extraocular movements intact, visual acuity grossly intact bilaterally. Nose; normal internal / external examination. Mouth; no ulcerations or lesions. Oropharynx; no notable lesions. Palate elevates symmetrically. Neck: Bilaterally enlarged palpable lymphadenopathy. Fiberoptic examination - The bilateral nasal cavities were topically anesthetized and decongested with spray. A flexible scope was introduced into the right nasal cavity. No mucopurulence, polyps, or lesions were seen. The nasopharynx, oropharynx, and hypopharynx were clear. The larynx demonstrated normal anatomy and bilateral true vocal cord mobility. LABORATORY AND X-RAY DATA: CBC: White blood cell count of 5.4, platelets of 49. IMPRESSION AND RECOMMENDATIONS: 20-year-old man status post liver transplant times two with dysphagia. Plan - 1. No upper aerodigestive tract etiology for dysphagia identified. 2. Recommend speech evaluation and consider modified barium swallow. 3. Would consider GI consult as patient is immunosuppressed and may be prone to opportunistic esophagitis infection 4. Will follow up neck CT scan with primary team. 5. Please call with questions or concerns. Will discuss this with staff and provide further recommendations as needed. Attending attestation I have discussed the above patient with Dr. Bhakta and reviewed FOE on video. Agree with plan as outlined above. Reviewed by Laurent Bhakta M.D. 04/11/2015 04:11 P Laurent Bhakta M.D. Edited and Electronically Signed By Msasiel Gastelum M.D. 04/19/2015 01:38 P Massiel Gastelum M.D. [facility] #[id number] Editing MT: TD: 03/31/2015 05:32:00 cc: Medicine Medicine Stephon Champion M.D. documented in this encounter Plan of Treatment Scheduled Procedures Name Priority Associated Diagnoses Date/Ti me COLONOSCOPY Encounter for screening for colorectal cancer in high risk patient Family history of rectal cancer documented as of this encounter Procedures Procedure Name Priority Date/Time Associated Diagnosis Comments BLOOD TACROLIMUS (FK-506), TROUGH DRUG LEVEL Routine 04/04/2015 5:44 AM CDT BLOOD CELL COUNT (CBC) Routine 5 5:44 AM CDT BLOOD CELL MORPHOLOGIC EXAM Routine 04/04/2015 5:44 AM CDT DISCHARGE LABORATORY CUMULATIVE REPORT 04/04/2015 UPPER GASTROINTESTINAL ENDOSCOPY REPORT 04/03/2015 SURGICAL PATHOLOGY 04/03/2015 PLASMA BASIC METABOLIC PANEL Routine 04/02/2015 9:10 PM CDT BLOOD CELL COUNT (CBC) Routine 5 9:10 PM CDT BLOOD CELL MORPHOLOGIC EXAM Routine 04/02/2015 9:10 PM CDT BLOOD CELL COUNT Routine 04/02/2015 3:18 PM CDT SERUM LACTATE DEHYDROGENASE (LDH) Routine 04/01/2015 10:17 PM CDT SERUM HAPTOGLOBIN Routine 04/01/2015 10: 17 PM CDT PLASMA HEPATIC FUNCTION PANEL Routine 04/01/2015 10:17 PM CDT PLASMA BASIC METABOLIC PANEL Routine 04/01/2015 10:17 PM CDT EXTRA SLIDE PREPARATION Routine 04/01/20 15 10:17 PM CDT BLOOD CELL COUNT (CBC) Routine 5 10:17 PM CDT BLOOD CELL MORPHOLOGIC EXAM Routine 04/01/2015 10:17 PM CDT PLASMA BASIC METABOLIC PANEL Routine 04/01/2015 4:43 AM CDT BLOOD CELL COUNT Routine 04/01/2015 4:43 AM CDT UPPER GASTROINTESTINAL ENDOSCOPY REPORT 04/01/2015 CYTOMEGALOVIRUS (CMV) PCR, CDR Routine 03/31/2015 12:31 PM CDT SERUM IGG, QUANTITATIVE Routine 03/31/20 15 12:31 PM CDT NADINE-BORREGO VIRUS (EBV) PCR, QUANTITATIVE, CDR Routine 03/31/2015 12:30 PM CDT PLASMA BASIC METABOLIC PANEL Routine 03/31/2015 5:53 AM CDT BLOOD TACROLIMUS (FK-506), TROUGH DRUG LEVEL Routine 03/31/2015 5:53 AM CDT BLOOD CELL COUNT (CBC) Routine 5 5:53 AM CDT BLOOD ABO, RH, INDIRECT AB SCREEN Routine 03/31/2015 5:53 AM CDT BLOOD CELL MORPHOLOGIC EXAM Routine 03/31/2015 5:53 AM CDT ALL MICROBIOLOGY REPORT SECTION Routine 03/31/2015 12:00 AM CDT ALL MICROBIOLOGY REPORT SECTION Routine 03/31/2015 12:00 AM CDT RESPIRATORY PATHOGEN MULTIPLEX PCR, CDR Routine 03/30/2015 4:[address] SOFT TISSUE NECK W CONTRAST Routine 03/30/2015 4:23 PM CDT CHEST RADIOGRAPHY, FRONTAL (AP), LATERAL Routine 03/30/2015 7:36 AM CDT BLOOD HUMAN IMMUNODEFICIENCY VIRUS Routine 03/30/2015 7:00 AM CDT SERUM LACTATE DEHYDROGENASE (LDH) Routine 03/30/2015 6:26 AM CDT PLASMA HEPATIC FUNCTION PANEL Routine 03/30/2015 6:26 AM CDT PLASMA BASIC METABOLIC PANEL Routine 03/30/2015 6:26 AM CDT BLOOD TACROLIMUS (FK-506) DRUG LEVEL Routine 03/30/2015 6:26 AM CDT BLOOD CELL COUNT (CBC) Routine 5 6:26 AM CDT BLOOD CELL MORPHOLOGIC EXAM Routine 03/30/2015 6:26 AM CDT SERUM MONONUCLEOSIS AB Routine 5 1:26 AM CDT ALL MICROBIOLOGY REPORT SECTION Routine 03/30/2015 12:00 AM CDT documented in this encounter Results * (ABNORMAL) Blood cell count (CBC) (04/04/2015 5:44 AM CDT) RBC 4.59 4.50 - 5.70 M/cumm HISTORICAL RESULTS Hgb 14.3 13.8 - 17.2 g/dl HISTORICAL RESULTS Hct 43.5 40.7 - 50.3 % HISTORICAL RESULTS MCV 94.7 80.0 - 97.6 fl HISTORICAL RESULTS MCH 31.2 26.7 - 33.7 pg HISTORICAL RESULTS MCHC 33.0 32.7 - 35.5 g/dl HISTORICAL RESULTS Rdw 14.7(H) 11.8 - 14.6 % HISTORICAL RESULTS Platelets 226 140 - 440 K/cumm HISTORICAL RESULTS MPV 9.9 6.8 - 10.4 fl HISTORICAL RESULTS WBC 5.2 3.8 - 9.8 K/cumm HISTORICAL RESULTS Neutrophils, abs 0.5(L) 1.8 - 6.6 K/cumm HISTORICAL RESULTS Lymphocytes, abs 2.5 1.2 - 3.3 K/cumm HISTORICAL RESULTS Monocytes, absolute 1.8(H) 0.2 - 1.2 K/cumm HISTORICAL RESULTS Eosinophils, abs 0.4 0.0 - 0.5 K/cumm HISTORICAL RESULTS Basophils, abs 0.0 0.0 - 0.2 K/cumm HISTORICAL RESULTS Neutrophils 8.7(L) 38.7 - 74.5 % HISTORICAL RESULTS Lymphocytes 48.7 20.0 - 54.3 % HISTORICAL RESULTS Monos 34.7(H) 4.3 - 13.5 % HISTORICAL RESULTS Comment:{Result required ruben ification by manual methods.} Eosinophils 7.2(H) 0.0 - 6.0 % HISTORICAL RESULTS Basophils 0.7 0.0 - 3.0 % HISTORICAL RESULTS Blood specimen (specimen) 04/04/2015 5:44 AM CDT Theodore Fagan MD LAB BLOOD ORDERABLES Final Resu lt HISTORICAL RESULTS * Blood cell morphologic exam (04/04/2015 5:44 AM CDT) Morphology scrn Original results obtained required verification by alternate method(s). Refer to CBC and/or observation sections for detailed results HISTORICAL RESULTS Blood specimen (specimen) 04/04/2015 5:44 AM CDT Theodore Fagan MD LAB BLOOD ORDERABLES Final Resu lt HISTORICAL RESULTS * Blood tacrolimus (FK-506), trough drug level (04/04/2015 5:44 AM CDT) Tacrolimus, trough 24.2 ng/ml H ISTORICAL RESULTS Comment: Interpretive Data This test was developed using an analyte specific reagent. ??Its performance characteristics were determined by the [facility] in a manner consistent with CLIA requirements. This test has not been cleared or approved by the U.S. Food and Drug Administration. Current interpretive data was last revised on 2011. Blood specimen (specimen) 04/04/2015 5:44 AM CDT Theodore Fagan MD LAB BLOOD ORDERABLES Final Resu lt HISTORICAL RESULTS * DISCHARGE LABORATORY CUMULATIVE REPORT (04/04/2015) Narrative 04/04/2015 Ordered by an unspecified provider. [facility] Provider LAB BLOOD ORDERABLES Chata l Result * Surgical pathology (04/03/2015) Narrative 04/03/2015 Ordered by an unspecified provider. [facility] Provider LAB PATHOLOGY ORDERABLES Final Result * UPPER GASTROINTESTINAL ENDOSCOPY REPORT (04/03/2015) Anatomical Region Laterality Modality Other Narrative 04/03/2015 Ordered by an unspecified provider. Result [facility] Provider GI PROCEDURE ORDERABLES F inal Result * (ABNORMAL) Plasma basic metabolic panel (04/02/2015 9:10 PM CDT) Sodium 138 135 - 145 mmol/L HISTORICAL RESULTS K, pl 4.1 3.3 - 4.9 mmol/L HISTORICAL RESULTS Chloride 105 97 - 110 mmol/L HISTORICAL RESULTS CO2 22 22 - 32 mmol/L HISTORICAL RESULTS A. gap 11 0 - 16 mmol/L HISTORICAL RESULTS Glucose 101 70 - 199 mg/dl HISTORICAL RESULTS BUN 7(L) 8 - 25 mg/dl HISTORICAL RESULTS Creatinine 0.74 0.70 - 1.30 mg/dl HISTORICAL RESULTS Calcium 8.7 8.6 - 10.3 mg/dl HISTORICAL RESULTS Plasma 04/02/2015 9:10 PM CDT us Theodore Fagan MD LAB BLOOD ORDERABLES Final Resu lt HISTORICAL RESULTS * (ABNORMAL) Blood cell count (CBC) (04/02/2015 9:10 PM CDT) RBC 4.13(L) 4.50 - 5.70 M/cumm HISTORICAL RESULTS Hgb 13.0(L) 13.8 - 17.2 g/dl HISTORICAL RESULTS Hct 39.5(L) 40.7 - 50.3 % HISTORICAL RESULTS MCV 95.7 80.0 - 97.6 fl HISTORICAL RESULTS MCH 31.6 26.7 - 33.7 pg HISTORICAL RESULTS MCHC 33.0 32.7 - 35.5 g/dl HISTORICAL RESULTS Rdw 14.6 11.8 - 14.6 % HISTORICAL RESULTS Platelets 188 140 - 440 K/cumm HISTORICAL RESULTS MPV 9.2 6.8 - 10.4 fl HISTORICAL RESULTS WBC 5.4 3.8 - 9.8 K/cumm HISTORICAL RESULTS Neutrophils, abs 0.4(C) 1.8 - 6.6 K/cumm HISTORICAL RESULTS Comment: Critical result called to and read back by jose daniel esteban (rn) on 04/02/2015 22:28:29 CDT to pks. Lymphocytes, abs 2.6 1.2 - 3.3 K/cumm HISTORICAL RESULTS Monocytes, absolute 1.8(H) 0.2 - 1.2 K/cumm HISTORICAL RESULTS Eosinophils, abs 0.5 0.0 - 0.5 K/cumm HISTORICAL RESULTS Basophils, abs 0.0 0.0 - 0.2 K/cumm HISTORICAL RESULTS Neutrophils 8.1(L) 38.7 - 74.5 % HISTORICAL RESULTS Lymphocytes 48.3 20.0 - 54.3 % HISTORICAL RESULTS Monos 33.2(H) 4.3 - 13.5 % HISTORICAL RESULTS Comment:{Verified by periphe ral smear.} Eosinophils 9.9(H) 0.0 - 6.0 % HISTORICAL RESULTS Basophils 0.5 0.0 - 3.0 % HISTORICAL RESULTS Blood specimen (specimen) 04/02/2015 9:10 PM CDT Theodore Fagan MD LAB BLOOD ORDERABLES Final Resu lt Performing Organization Address [facility] de Phone Number HISTORICAL RESULTS * Blood cell morphologic exam (04/02/2015 9:10 PM CDT) Morphology scrn Original results obtained required verification by alternate method(s). Refer to CBC and/or observation sections for detailed results HISTORICAL RESULTS Blood specimen (specimen) 04/02/2015 9:10 PM CDT Theodore Fagan MD LAB BLOOD ORDERABLES Final Resu lt Performing Organization Address [facility] de Phone Number HISTORICAL RESULTS * (ABNORMAL) Blood cell count [CBC] express (04/02/2015 3:18 PM CDT) WBC 4.9 3.8 - 9.8 K/cumm HISTORICAL RESULTS RBC 4.18(L) 4.50 - 5.70 M/cumm HISTORICAL RESULTS Hgb 13.0(L) 13.8 - 17.2 g/dl HISTORICAL RESULTS Hct 40.2(L) 40.7 - 50.3 % HISTORICAL RESULTS MCV 96.2 80.0 - 97.6 fl HISTORICAL RESULTS MCH 31.2 26.7 - 33.7 pg HISTORICAL RESULTS MCHC 32.4(L) 32.7 - 35.5 g/dl HISTORICAL RESULTS Rdw 14.8(H) 11.8 - 14.6 % HISTORICAL RESULTS Platelets 175 140 - 440 K/cumm HISTORICAL RESULTS MPV 8.8 6.8 - 10.4 fl HISTORICAL RESULTS Blood specimen (specimen) 04/02/2015 3:18 PM CDT Theodore Fagan MD LAB BLOOD ORDERABLES Final Resu lt Performing Organization Address [facility] de Phone Number HISTORICAL RESULTS * (ABNORMAL) Plasma hepatic function panel (04/01/2015 10:17 PM CDT) Protein, pl 6.9 6.5 - 8.5 g/dl HISTORICAL RESULTS Alb 3.1(L) 3.6 - 5.0 g/dl HISTORICAL RESULTS Bilirubin 0.2(L) 0.3 - 1.1 mg/dl HISTORICAL RESULTS Bilirubin, direct 0.1 0.0 - 0.3 mg/dl HISTORICAL RESULTS Alk phos 168(H) 38 - 126 Units/L HISTORICAL RESULTS AST 54(H) 11 - 47 Units/L HISTORICAL RESULTS ALT 67(H) 7 - 53 Units/L HISTORICAL RESULTS Plasma 04/01/2015 10:1 7 PM CDT us Theodore Fagan MD LAB BLOOD ORDERABLES Final Resu lt Performing Organization Address [facility] de Phone Number HISTORICAL RESULTS * (ABNORMAL) Serum lactate dehydrogenase (LDH) (04/01/2015 10:17 PM CDT) Lactate dehydrogenase (LDH) 364(H) 100 - 250 Units/L HISTORICAL RESULTS Serum 04/01/2015 10:1 7 PM CDT us Theodore Fagan MD LAB BLOOD ORDERABLES Final Resu lt Performing Organization Address [facility] de Phone Number HISTORICAL RESULTS * Extra slide preparation (04/01/2015 10:17 PM CDT) Extra slide prep Test Completed HISTORICAL RESULTS No specimen 04/01/2015 10:1 7 PM CDT us Theodore Fagan MD LAB BLOOD ORDERABLES Final Resu lt Performing Organization Address [facility] de Phone Number HISTORICAL RESULTS * (ABNORMAL) Serum haptoglobin (04/01/2015 10:17 PM CDT) Haptoglobin 242.6(H) 27.0 - 220.0 mg/dl HISTORICAL RESULTS Serum 04/01/2015 10:1 7 PM CDT us Theodore Fagan MD LAB BLOOD ORDERABLES Final Resu lt Performing Organization Address [facility] de Phone Number HISTORICAL RESULTS * (ABNORMAL) Plasma basic metabolic panel (04/01/2015 10:17 PM CDT) Pathologist [facility] Sodium 140 135 - 145 mmol/L HISTORICAL RESULTS K, pl 4.1 3.3 - 4.9 mmol/L HISTORICAL RESULTS Chloride 107 97 - 110 mmol/L HISTORICAL RESULTS CO2 22 22 - 32 mmol/L HISTORICAL RESULTS A. gap 11 0 - 16 mmol/L HISTORICAL RESULTS Glucose 115 70 - 199 mg/dl HISTORICAL RESULTS BUN 8 8 - 25 mg/dl HISTORICAL RESULTS Creatinine 0.71 0.70 - 1.30 mg/dl HISTORICAL RESULTS Calcium 8.4(L) 8.6 - 10.3 mg/dl HISTORICAL RESULTS Plasma 04/01/2015 10:1 7 PM CDT Theodore Fagan MD LAB BLOOD ORDERABLES Final Resu lt HISTORICAL RESULTS * (ABNORMAL) Blood cell count (CBC) (04/01/2015 10:17 PM CDT) Pathologist [facility] MCV 96.8 80.0 - 97.6 fl HISTORICAL RESULTS Lymphocytes, abs 2.0 1.2 - 3.3 K/cumm HISTORICAL RESULTS MCH 31.1 26.7 - 33.7 pg HISTORICAL RESULTS RBC 3.90(L) 4.50 - 5.70 M/cumm HISTORICAL RESULTS MCHC 32.1(L) 32.7 - 35.5 g/dl HISTORICAL RESULTS Monocytes, absolute 1.6(H) 0.2 - 1.2 K/cumm HISTORICAL RESULTS Rdw 14.4 11.8 - 14.6 % HISTORICAL RESULTS Hgb 12.1(L) 13.8 - 17.2 g/dl HISTORICAL RESULTS Platelets 128(L) 140 - 440 K/cumm HISTORICAL RESULTS Comment:verified Eosinophils, abs 0.6(H) 0.0 - 0.5 K/cumm HISTORICAL RESULTS MPV 9.2 6.8 - 10.4 fl HISTORICAL RESULTS Hct 37.8(L) 40.7 - 50.3 % HISTORICAL RESULTS WBC 4.6 3.8 - 9.8 K/cumm HISTORICAL RESULTS Basophils, abs 0.0 0.0 - 0.2 K/cumm HISTORICAL RESULTS Neutrophils, abs 0.3(C) 1.8 - 6.6 K/cumm HISTORICAL RESULTS Comment: Critical result called to and read back by Genet Ott (RN) on 04/02/2015 00:40:37 CDT to KEN. Neutrophils 7.3(L) 38.7 - 74.5 % HISTORICAL RESULTS Lymphocytes 44.5 20.0 - 54.3 % HISTORICAL RESULTS Monos 35.8(H) 4.3 - 13.5 % HISTORICAL RESULTS Comment:{Result required ruben ification by manual methods.} Eosinophils 12.0(H) 0.0 - 6.0 % HISTORICAL RESULTS Basophils 0.4 0.0 - 3.0 % HISTORICAL RESULTS Blood specimen (specimen) 04/01/2015 10:17 PM CDT Theodore Fagan MD LAB BLOOD ORDERABLES Final Resu lt Performing Organization Address [facility] de Phone Number HISTORICAL RESULTS * Blood cell morphologic exam (04/01/2015 10:17 PM CDT) Pathologist [facility] Morphology scrn Original results obtained required verification by alternate method(s). Refer to CBC and/or observation sections for detailed results HISTORICAL RESULTS Blood specimen (specimen) 04/01/2015 10:17 PM CDT Theodore Fagan MD LAB BLOOD ORDERABLES Final Resu lt Performing Organization Address [facility] de Phone Number HISTORICAL RESULTS * Plasma basic metabolic panel (04/01/2015 4:43 AM CDT) Pathologist [facility] Sodium 139 135 - 145 mmol/L HISTORICAL RESULTS K, pl 4.6 3.3 - 4.9 mmol/L HISTORICAL RESULTS Chloride 105 97 - 110 mmol/L HISTORICAL RESULTS CO2 24 22 - 32 mmol/L HISTORICAL RESULTS A. gap 10 0 - 16 mmol/L HISTORICAL RESULTS Glucose 95 70 - 199 mg/dl HISTORICAL RESULTS BUN 9 8 - 25 mg/dl HISTORICAL RESULTS Creatinine 0.77 0.70 - 1.30 mg/dl HISTORICAL RESULTS Calcium 9.0 8.6 - 10.3 mg/dl HISTORICAL RESULTS Plasma 04/01/2015 4:43 AM CDT Theodore Fagan MD LAB BLOOD ORDERABLES Final Resu Performing Organization Address [facility] de Phone Number HISTORICAL RESULTS * (ABNORMAL) Blood cell count [CBC] express (04/01/2015 4:43 AM CDT) WBC 5.4 3.8 - 9.8 K/cumm HISTORICAL RESULTS RBC 4.54 4.50 - 5.70 M/cumm HISTORICAL RESULTS Hgb 14.1 13.8 - 17.2 g/dl HISTORICAL RESULTS Hct 44.1 40.7 - 50.3 % HISTORICAL RESULTS MCV 97.1 80.0 - 97.6 fl HISTORICAL RESULTS MCH 31.2 26.7 - 33.7 pg HISTORICAL RESULTS MCHC 32.1(L) 32.7 - 35.5 g/dl HISTORICAL RESULTS Rdw 14.7(H) 11.8 - 14.6 % HISTORICAL RESULTS Platelets 96(L) 140 - 440 K/cumm HISTORICAL RESULTS Comment:{Platelet delta due to apparent platelet transfusion.} MPV 10.9(H) 6.8 - 10.4 fl HISTORICAL RESULTS Blood specimen (specimen) 04/01/2015 4:43 AM CDT Theodore Fagan MD LAB BLOOD ORDERABLES Final [facility] Performing Organization Address [facility] Phone Number HISTORICAL RESULTS * UPPER GASTROINTESTINAL ENDOSCOPY REPORT (04/01/2015) Anatomical Region Laterality Modality Other Narrative 04/01/2015 Ordered by an unspecified provider. Historical Provider GI PROCEDURE ORDERABLES F inal Result * Serum IgG, quantitative (03/31/2015 12:31 PM CDT) IgG 1020.0 700.0 - 1450.0 mg/dl HISTORICAL RESULTS Serum 03/31/2015 12:3 1 PM CDT Theodore Fagan MD LAB BLOOD ORDERABLES Final Resu Performing Organization Address [facility] de Phone Number HISTORICAL RESULTS * Cytomegalovirus (CMV) PCR (03/31/2015 12:31 PM CDT) Blood specimen (specimen) (Unknown) 03/31/2015 12:31 PM CDT 04/01/2015 1:35 PM CDT Impressions HISTORICAL RESULTS - 04/04/2015 11:45 AM CDT This assay employs the FDA-cleared [employer] real-time CMV PCR test kit. The PCR primers amplify a portion of the major immediate early gene of human cytomegalovirus. The assay does not amplify any of the other human herpes viruses or human DNA. ??If CMV DNA is detected, quantitative results will be reported in International Units (IU)/mL of blood as well as the log base 10 transformed value. The benefit of this practice is to improve the comparability of CMV PCR results among different laboratories. The lower limit of detection of the assay is 100 IU/mL. The assay is accurate for quantitation in the range of 870 to 5,800,000 IU/mL or 2.9 to 6.8 log(10) IU/mL. Narrative HISTORICAL RESULTS - 04/04/2015 11:45 AM CDT Result: ??Less than 200 copies/mL REFERENCE RANGE: ??Less than 200 copies/mL Testing performed at [facility], [place] [address]. ?? * ??* ??* ??* ??* ??* ??* ??* ??* ??* ??* ??* ??* ??* ??* ??* ??* ??* ??* ??* This test was developed and its performance characteristics have been determined by [facility]. ??It has not been cleared or approved by the U.S. Food and Drug Administration. ??The FDA has determined that such clearance or approval is not necessary. ??Performance characteristics refer to the analytical performance of the test. Note: ??Please disregard Interpretive Note below; the information provided under interpretive note below is for testing performed ??at [facility] only using a separate assay. us Historical Provider LAB MICROBIOLOGY - GENERA L ORDERABLES Final Result HISTORICAL RESULTS * Nadine-Borrego virus (EBV) PCR, quantitative (03/31/2015 12:30 PM CDT) Blood specimen (specimen) (Unknown) 03/31/2015 12:30 PM CDT 04/01/2015 12:01 PM CDT Impressions HISTORICAL RESULTS - 04/03/2015 10:26 AM CDT Testing performed by: [facility], [place] [address]. Narrative HISTORICAL RESULTS - 04/03/2015 10:26 AM CDT Nadine-Borrego Virus Detected 5110 copies/ml Result in log copies/ml = 3.71 Lower 95% confidence Interval = 2231 copies/ml Upper 95% Confidence Interval = 72126 copies/ml * ??* ??* ??* ??* ??* ??* ??* ??* ??* ??* ??* ??* ??* ??* ??* ??* ??* ??* ??* Analyte Specific Reagent: this test was developed and its performance characteristics determined by [facility]. ??It has not been cleared or approved by the U. S. Food and Drug Administration. * ??* ??* ??* ??* ??* ??* ??* ??* ??* ??* ??* ??* ??* ??* ??* ??* ??* ??* ??* Results phoned to and read back by: Dr. Fagan, [phone], ??04/03/2015 10:25:42. us Historical Provider LAB MICROBIOLOGY - GENERA L ORDERABLES Final Result HISTORICAL RESULTS * Blood tacrolimus (FK-506), trough drug level (03/31/2015 5:53 AM CDT) Tacrolimus, trough 8.6 ng/ml H ISTORICAL RESULTS Comment: Interpretive Data This test was developed using an analyte specific reagent. ??Its performance characteristics were determined by the [facility] in a manner consistent with CLIA requirements. This test has not been cleared or approved by the U.S. Food and Drug Administration. Current interpretive data was last revised on 2011. Blood specimen (specimen) 03/31/2015 5:53 AM CDT Theodore Fagan MD LAB BLOOD ORDERABLES Final Resu Performing Organization Address [facility] de Phone Number HISTORICAL RESULTS * (ABNORMAL) Plasma basic metabolic panel (03/31/2015 5:53 AM CDT) Sodium 138 135 - 145 mmol/L HISTORICAL RESULTS K, pl 4.3 3.3 - 4.9 mmol/L HISTORICAL RESULTS Chloride 102 97 - 110 mmol/L HISTORICAL RESULTS CO2 26 22 - 32 mmol/L HISTORICAL RESULTS A. gap 10 0 - 16 mmol/L HISTORICAL RESULTS Glucose 97 70 - 199 mg/dl HISTORICAL RESULTS BUN 6(L) 8 - 25 mg/dl HISTORICAL RESULTS Creatinine 0.85 0.70 - 1.30 mg/dl HISTORICAL RESULTS Calcium 9.2 8.6 - 10.3 mg/dl HISTORICAL RESULTS Plasma 03/31/2015 5:53 AM CDT Theodore Fagan MD LAB BLOOD ORDERABLES Final Resu Performing Organization Address [facility] de Phone Number HISTORICAL RESULTS * (ABNORMAL) Blood cell count (CBC) (03/31/2015 5:53 AM CDT) Pathologist [facility] WBC 4.8 3.8 - 9.8 K/cumm HISTORICAL RESULTS RBC 4.57 4.50 - 5.70 M/cumm HISTORICAL RESULTS Hgb 14.5 13.8 - 17.2 g/dl HISTORICAL RESULTS Hct 43.8 40.7 - 50.3 % HISTORICAL RESULTS MCV 95.8 80.0 - 97.6 fl HISTORICAL RESULTS MCH 31.7 26.7 - 33.7 pg HISTORICAL RESULTS MCHC 33.1 32.7 - 35.5 g/dl HISTORICAL RESULTS Rdw 14.3 11.8 - 14.6 % HISTORICAL RESULTS Platelets 41(C) 140 - 440 K/cumm HISTORICAL RESULTS Comment:{Inpatient result; n ot critical.} MPV 10.6(H) 6.8 - 10.4 fl HISTORICAL RESULTS Neutrophils, abs 0.6(L) 1.8 - 6.6 K/cumm HISTORICAL RESULTS Lymphocytes, abs 1.7 1.2 - 3.3 K/cumm HISTORICAL RESULTS Monocytes, absolute 2.2(H) 0.2 - 1.2 K/cumm HISTORICAL RESULTS Eosinophils, abs 0.3 0.0 - 0.5 K/cumm HISTORICAL RESULTS Basophils, abs 0.0 0.0 - 0.2 K/cumm HISTORICAL RESULTS Neutrophils 13.0(L) 38.7 - 74.5 % HISTORICAL RESULTS Lymphocytes 35.1 20.0 - 54.3 % HISTORICAL RESULTS Monos 45.3(H) 4.3 - 13.5 % HISTORICAL RESULTS Comment:{Verified by periphe ral smear.} Eosinophils 6.2(H) 0.0 - 6.0 % HISTORICAL RESULTS Basophils 0.4 0.0 - 3.0 % HISTORICAL RESULTS Blood specimen (specimen) 03/31/2015 5:53 AM CDT us Theodore Fagan MD LAB BLOOD ORDERABLES Final Resu lt Performing Organization Address [facility] de Phone Number HISTORICAL RESULTS * Blood cell morphologic exam (03/31/2015 5:53 AM CDT) Morphology scrn Original results obtained required verification by alternate method(s). Refer to CBC and/or observation sections for detailed results HISTORICAL RESULTS Blood specimen (specimen) 03/31/2015 5:53 AM CDT us Theodore Fagan MD LAB BLOOD ORDERABLES Final Resu lt Performing Organization Address [facility] de Phone Number HISTORICAL RESULTS * Blood ABO, Rh, indirect ab screen (03/31/2015 5:53 AM CDT) ABO, Rho(D) A Positive HISTORI PINKY RESULTS Carol, indirect Negative HISTORICAL RESULTS Blood specimen (specimen) 03/31/2015 5:53 AM CDT us Theodore Fagan MD LAB BLOOD ORDERABLES Final Resu lt Performing Organization Address [facility] de Phone Number HISTORICAL RESULTS * All Microbiology Report Section (03/31/2015 12:00 AM CDT) 03/31/2015 Narrative HISTORICAL RESULTS - 04/04/2015 1:22 PM CDT ? [facility] ?[address] [facility] [address] ?[place], [place] [address] ? Patient Name: ??SIMONE ADI Contreras ? Med Rec Number: [id number] ? Fin Number: ?[id number] ? Date: ?1995 ? Sex/Age: ? Male 20 years ? Admit Date: ?03/30/2015 ? Discharge Date: ? Doctor: ?Medicine , ? Facility: ?[facility] ? Location: ?[place] [id number] 01 ?* Abnormal ??A Alert ??f Footnote ??^ Corrected ??L Low ??H High ?i Interp Data ??@ Ref Lab ? Chart Type:Cumulative ?* * * * MICROBIOLOGY - MOLECULAR TESTING * * * * ?PROCEDURE: Cytomegalovirus PCR, Blood ? SOURCE: Blood ? COLLECTED: 03/31/15 ??1231 ?BODY SITE: ? STARTED: 04/01/15 ??1338 ? FREE TEXT SOURCE: ? FINAL REPORT ? REPORTED: 04/04/15 1145 ? Result: ??Less than 200 copies/mL REFERENCE RANGE: ??Less than 200 ? copies/mL Testing performed at [facility] ? [place] [address]. ?? * ??* ??* ??* ??* ??* ??* ??* ??* ??* ??* ??* ??* ??* ? * ??* ??* ??* ??* ??* This test was developed and its performance ? characteristics have been determined by [facility]. ??It ? has not been cleared or approved by the U.S. Food and Drug ? Administration. ??The FDA has determined that such clearance or ? approval is not necessary. ??Performance characteristics refer to ? the analytical performance of the test. Note: ??Please disregard ? Interpretive Note below; the information provided under ? interpretive note below is for testing performed ??at [place] ? [facility] only using a separate ? assay. ? ORDER COMMENTS ?* * * ??Interpretive Results ??* * * ? (1)This assay employs the FDA-cleared [employer] real-time CMV ? PCR test kit. The PCR primers amplify a portion of the major ? immediate early gene of human cytomegalovirus. The assay does ? not amplify any of the other human herpes viruses or human DNA. ? If CMV DNA is detected, quantitative results will be reported in ? International Units (IU)/mL of blood as well as the log base 10 ? transformed value. The benefit of this practice is to improve ? the comparability of CMV PCR results among different ? laboratories. The lower limit of detection of the assay is 100 ? IU/mL. The assay is accurate for quantitation in the range of ? 870 to 5,800,000 IU/mL or 2.9 to 6.8 log(10) IU/mL. The CMV ? International Unit was developed by the WHO and is based on a ? consensus quantitative level of a preparation of CMV DNA as ? tested by a number of reference laboratories. The adoption of ? the International Unit as a measure of reporting quantitative ? CMV results will help with the standardization of quantitative ? CMV results between laboratories employing different assays and ? should assist with the development of critical levels for the ? management of patients at risk for CMV disease.This test kit is ? FDA cleared for CMV detection in plasma. ??The FDA-modified use ? of this test for CMV detection in whole blood was validated and ? its performance characteristics determined by [place] ? [facility]. It has not been cleared ? or approved by the U.S. Food and Drug Administration. ? us Historical Provider MD LAB MICROBIOLOGY - GENERA L ORDERABLES Final Result HISTORICAL RESULTS * All Microbiology Report Section (03/31/2015 12:00 AM CDT) 03/31/2015 Narrative HISTORICAL RESULTS - 04/03/2015 12:58 PM CDT ? [facility] ?[address] [facility] [address] ?[place] [address] ? Patient Name: ??ADI NICHOLS ? Med Rec Number: [id number] ? Fin Number: ?[id number] ? Date: ?1995 ? Sex/Age: ? Male 20 years ? Admit Date: ?03/30/2015 ? Discharge Date: ? Doctor: ?Medicine , ? Facility: ?[facility] ? Location: ?[address] [address] 01 ?* Abnormal ??A Alert ??f Footnote ??^ Corrected ??L Low ??H High ?i Interp Data ??@ Ref Lab ? Chart Type:Cumulative ?* * * * MICROBIOLOGY - MOLECULAR TESTING * * * * ?PROCEDURE: Nadine Borrego Virus (EBV) Quantitative PCR ? SOURCE: Blood ? COLLECTED: 03/31/15 ??1230 ?BODY SITE: ? STARTED: 04/01/15 ??1201 ? FREE TEXT SOURCE: ? FINAL REPORT ? REPORTED: 04/03/15 1026 ? Nadine-Borrego Virus Detected 5110 copies/mlResult in log ? copies/ml = 3.71 Lower 95% confidence Interval = 2231 ? copies/mlUpper 95% Confidence Interval = 58548 copies/ml * ??* ??* ? * ??* ??* ??* ??* ??* ??* ??* ??* ??* ??* ??* ??* ??* ??* ??* ??* Analyte ? Specific Reagent: this test was developed and its performance ? characteristics determined by [facility]. ??It has not been ? cleared or approved by the U. S. Food and Drug Administration. * ? * ??* ??* ??* ??* ??* ??* ??* ??* ??* ??* ??* ??* ??* ??* ??* ??* ??* ??* Results ? phoned to and read back by: Dr. Fagan, [phone], ??04/03/2015 10:25: ? 42. ?* * * ??Interpretive Results ??* * * ? (1)Testing performed by: [facility], [place] ? [address]. ? us Historical Provider LAB MICROBIOLOGY - GENERA L ORDERABLES Final Result HISTORICAL RESULTS * Respiratory Pathogen Multiplex PCR (03/30/2015 4:43 PM CDT) Nasopharyngeal (Unknown) 03/30/2015 4:43 PM CDT 03/30/2015 6:34 PM CDT Impressions HISTORICAL RESULTS - 03/30/2015 7:57 PM CDT The [employer]formerly known as [employer] FilmArray Respiratory Panel (RP) assay is a multiplexed nucleic acid test capable of simultaneous qualitative detection and identification of multiple respiratory viral and bacterial nucleic acids. ??The following bacteria, viruses and virus subtypes can be identified using the FilmArray RP assay: Bordetella pertussis, Chlamydophila pneumoniae, Mycoplasma pneumoniae, Adenovirus, Coronavirus HKU1, [...] to cross-reactivity or may indicate a co-infection. A version of the FilmArray RP assay updated to include an additional adenovirus assay was approved by the FDA in December,. ??The updated version has demonstrated improved detection of adenoviruses relative to the previous version. ??All of the other assays for the 20 targets are unchanged. ?? The detection and identification of specific viral [...] FilmArray RP assay is FDA cleared for HIDE BUFFER swabs. ??Additional sample types have been validated according to CLIA regulations. ??The performance characteristics of this assay have been determined by [facility]. Current interpretive data was last revised on 2013. Narrative HISTORICAL RESULTS - 03/30/2015 7:57 PM CDT Respiratory Pathogen nucleic acids DETECTED (POSITIVE) for the following: Coronavirus NL63 us Historical Provider LAB MICROBIOLOGY - GENERA L ORDERABLES Final Result HISTORICAL RESULTS * CT Soft Tissue Neck W Contrast (03/30/2015 4:23 PM CDT) Anatomical Region Laterality Modality Head and Neck N/A Computed Tomogra phy 03/30/2015 4:23 PM CDT Narrative 03/31/2015 5:38 PM CDT RACHEL ALLEN M.D. ZURDO BAEZ, FINAL REPORT The radiology attending physician has personally reviewed this study, and has reviewed and/or edited this written report and agrees with it. ACC# ??Date Time ??Exam [id number] March 30, 2015 16:23:[id number] Neck SoftTissue w cont EXAMINATION: ?? CT scan of the neck with contrast HISTORY: 20-year-old man with dysphagia. History of liver transplant. TECHNIQUE: Axial CT images were obtained from the skull base to the thoracic inlet ?? after the uneventful intravenous administration of nonionic contrast according to the standard neck protocol. Contrast information: Intravenous Optiray 350 mg/ml for a total of 91 mL COMPARISON: 05/21/2014 FINDINGS: There is bilateral lymphadenopathy throughout the neck that has a mildly decreased compared to the prior study. For example level 2 lymphadenopathy on the right deep to the sternocleidomastoid muscle measures 1.6 x 3.7 cm previously 2.4 x 4.9 cm. There is also supraclavicular, axillary and superior mediastinal lymphadenopathy which has mildly decreased. Left level 3 lymph node on slice 66 of the coronal images measures 1.3 x 2.4 cm (2.0 x 0.8 cm). The thyroid is normal. The airway is patent. The craniocervical junction and skull base are normal. Vessels are normal course and caliber throughout the neck. Visualized portions of the upper thoracic esophagus show wall thickening and stranding surrounding the dilated esophagus which contains debris. Bone windows demonstrate no lytic or blastic lesions. IMPRESSION: ?? 1. Mildly decreased diffuse neck lymphadenopathy. However, level 3 lymph nodes are slightly larger. 2. Upper thoracic esophagitis, incompletely evaluated. Swallow study or upper endoscopy ??could be performed if clinically indicated. Requested By: RUTH ANN HINES M.D. Dictated By: ?? ZURDO BAEZ, ?? on Mar 30 2015 ??7:09P This document has been electronically signed by: RACHEL ALLEN M.D. on Mar 31 2015 ??5:37P [id number] Procedure Note Provider, MD Dl - 02/28/2017 RACHEL ALLEN M.D. ZURDO BAEZ, FINAL REPORT The radiology attending physician has personally reviewed this study, and has reviewed and/or edited this written report and agrees with it. ACC# Date Time Exam [id number] March 30, 2015 16:23:[id number] Neck SoftTissue w cont EXAMINATION: CT scan of the neck with contrast HISTORY: 20-year-old man with dysphagia. History of liver transplant. TECHNIQUE: Axial CT images were obtained from the skull base to the thoracic inlet after the uneventful intravenous administration of nonionic contrast according to the standard neck protocol. Contrast information: Intravenous Optiray 350 mg/ml for a total of 91 mL COMPARISON: 05/21/2014 FINDINGS: There is bilateral lymphadenopathy throughout the neck that has a mildly decreased compared to the prior study. For example level 2 lymphadenopathy on the right deep to the sternocleidomastoid muscle measures 1.6 x 3.7 cm previously 2.4 x 4.9 cm. There is also supraclavicular, axillary and superior mediastinal lymphadenopathy which has mildly decreased. Left level 3 lymph node on slice 66 of the coronal images measures 1.3 x 2.4 cm (2.0 x 0.8 cm). The thyroid is normal. The airway is patent. The craniocervical junction and skull base are normal. Vessels are normal course and caliber throughout the neck. Visualized portions of the upper thoracic esophagus show wall thickening and stranding surrounding the dilated esophagus which contains debris. Bone windows demonstrate no lytic or blastic lesions. IMPRESSION: 1. Mildly decreased diffuse neck lymphadenopathy. However, level 3 lymph nodes are slightly larger. 2. Upper thoracic esophagitis, incompletely evaluated. Swallow study or upper endoscopy could be performed if clinically indicated. Requested By: RUTH ANN HINES M.D. Dictated By: ZURDO BAEZ on Mar 30 2015 7:09P This document has been electronically signed by: RACHEL ALLEN M.D. on Mar 31 2015 5:37P [id number] us Historical Provider MD SZYMANSKI CT PROCEDURES Final R esult * CHEST RADIOGRAPHY, FRONTAL (AP), LATERAL (03/30/2015 7:36 AM CDT) Anatomical Region Laterality Modality N/A Radiographic Shilpi ging 03/30/2015 7:36 AM CDT Narrative 03/30/2015 11:19 AM CDT EVELIA HOLM M.D. SHWETHA SOSA M.D. FINAL REPORT The radiology attending physician has personally reviewed this study, and has reviewed and/or edited this written report and agrees with it. ACC# ??Date Time ??Exam [id number] March 30, 2015 07:36:00 05235 Chest 2 views Frontl & Lat EXAMINATION: ?Chest 2 views HISTORY: ??Cough FINDINGS: ?? Two views of the chest including a lateral view are submitted for evaluation and compared to prior study 05/19/2014. Surgical clips overlie the right upper quadrant and left upper quadrant. Patchy opacity in the right upper lobe could represent focal atelectasis or a developing pneumonia. No pleural effusion or pneumothorax. The heart size and mediastinal contours are stable. IMPRESSION: ?? Patchy opacity in the right upper lobe could represent focal atelectasis or a developing pneumonia. Requested By: TRAVON ESTRADA M.D. Dictated By: ?? SHWETHA SOSA M.D. ??on Mar 30 2015 10:00A This document has been electronically signed by: EVELIA HOLM M.D. on Mar 30 2015 11:19A [id number] Procedure Note Provider, MD Dl - 02/28/2017 Stephon DENNEY M.D. FINAL REPORT The radiology attending physician has personally reviewed this study, and has reviewed and/or edited this written report and agrees with it. ACC# Date Time Exam [id number] March 30, 2015 07:36:00 [id number] Chest 2 views Frontl & Lat EXAMINATION: Chest 2 views HISTORY: Cough FINDINGS: Two views of the chest including a lateral view are submitted for evaluation and compared to prior study 05/19/2014. Surgical clips overlie the right upper quadrant and left upper quadrant. Patchy opacity in the right upper lobe could represent focal atelectasis or a developing pneumonia. No pleural effusion or pneumothorax. The heart size and mediastinal contours are stable. IMPRESSION: Patchy opacity in the right upper lobe could represent focal atelectasis or a developing pneumonia. Requested By: TRAVON ESTRADA M.D. Dictated By: SHWETHA SOSA M.D. on Mar 30 2015 10:00A This document has been electronically signed by: EVELIA HOLM M.D. on Mar 30 2015 11:19A [id number] Historical Provider MD SZYMANSKI XR PROCEDURES Final R esult * Blood Human Immunodeficiency virus [HIV] rapid screen (03/30/2015 7:00 AM CDT) Pathologist [facility] HIV ab Negative Negative HISTORICAL RESULTS Blood specimen (specimen) 03/30/2015 7:00 AM CDT Result [facility] Sarah Matthew LAB BLOOD ORDERABLES Fi nal Result Performing Organization Address [facility] de Phone Number HISTORICAL RESULTS * Blood tacrolimus (FK-506) drug level (03/30/2015 6:26 AM CDT) Pathologist [facility] Tacrolimus 5.9 ng/ml HISTORICA L RESULTS Comment: Interpretive Data This test was developed using an analyte specific reagent. ??Its performance characteristics were determined by the [facility] in a manner consistent with CLIA requirements. This test has not been cleared or approved by the U.S. Food and Drug Administration. Current interpretive data was last revised on 2011. Blood specimen (specimen) 03/30/2015 6:26 AM CDT Result [facility] Travon Estrada MD LAB BLOOD ORDERABLES Final Result Performing Organization Address [facility] de Phone Number HISTORICAL RESULTS * (ABNORMAL) Plasma hepatic function panel (03/30/2015 6:26 AM CDT) [facility] Protein, pl 6.9 6.5 - 8.5 g/dl HISTORICAL RESULTS Alb 3.9 3.6 - 5.0 g/dl HISTORICAL RESULTS Bilirubin 0.8 0.3 - 1.1 mg/dl HISTORICAL RESULTS Bilirubin, direct 0.2 0.0 - 0.3 mg/dl HISTORICAL RESULTS Alk phos 208(H) 38 - 126 Units/L HISTORICAL RESULTS AST 45 11 - 47 Units/L HISTORICAL RESULTS ALT 83(H) 7 - 53 Units/L HISTORICAL RESULTS Plasma 03/30/2015 6:26 AM CDT us Travon Estrada MD LAB BLOOD ORDERABLES Final Result Performing Organization Address [facility] de Phone Number HISTORICAL RESULTS * Serum lactate dehydrogenase (LDH) (03/30/2015 6:26 AM CDT) Pathologist [facility] Lactate dehydrogenase (LDH) 206 100 - 250 Units/L HISTORICAL RESULTS Serum 03/30/2015 6:26 AM CDT us Travon Estrada MD LAB BLOOD ORDERABLES Final Result Performing Organization Address [facility] de Phone Number HISTORICAL RESULTS * Plasma basic metabolic panel (03/30/2015 6:26 AM CDT) Pathologist [facility] Sodium 138 135 - 145 mmol/L HISTORICAL RESULTS K, pl 4.1 3.3 - 4.9 mmol/L HISTORICAL RESULTS Chloride 103 97 - 110 mmol/L HISTORICAL RESULTS A. gap 12 0 - 16 mmol/L HISTORICAL RESULTS CO2 23 22 - 32 mmol/L HISTORICAL RESULTS Glucose 98 70 - 199 mg/dl HISTORICAL RESULTS BUN 10 8 - 25 mg/dl HISTORICAL RESULTS Creatinine 0.81 0.70 - 1.30 mg/dl HISTORICAL RESULTS Calcium 9.1 8.6 - 10.3 mg/dl HISTORICAL RESULTS Plasma 03/30/2015 6:26 AM CDT us Travon Estrada MD LAB BLOOD ORDERABLES Final Result Performing Organization Address [facility] de Phone Number HISTORICAL RESULTS * (ABNORMAL) Blood cell count (CBC) (03/30/2015 6:26 AM CDT) WBC 5.4 3.8 - 9.8 K/cumm HISTORICAL RESULTS RBC 4.40(L) 4.50 - 5.70 M/cumm HISTORICAL RESULTS Hgb 13.8 13.8 - 17.2 g/dl HISTORICAL RESULTS Hct 41.8 40.7 - 50.3 % HISTORICAL RESULTS MCV 95.1 80.0 - 97.6 fl HISTORICAL RESULTS MCH 31.4 26.7 - 33.7 pg HISTORICAL RESULTS MCHC 33.0 32.7 - 35.5 g/dl HISTORICAL RESULTS Rdw 14.6 11.8 - 14.6 % HISTORICAL RESULTS Platelets 49(C) 140 - 440 K/cumm HISTORICAL RESULTS Comment: Critical result called to and read back by Travon Estrada (SHAILESH) on 03/30/2015 06:58:32 CDT to lsd. No clot detected in sample. MPV 10.0 6.8 - 10.4 fl HISTORICAL RESULTS Neutrophils, abs 0.6(L) 1.8 - 6.6 K/cumm HISTORICAL RESULTS Lymphocytes, abs 2.2 1.2 - 3.3 K/cumm HISTORICAL RESULTS Monocytes, absolute 2.4(H) 0.2 - 1.2 K/cumm HISTORICAL RESULTS Eosinophils, abs 0.2 0.0 - 0.5 K/cumm HISTORICAL RESULTS Basophils, abs 0.0 0.0 - 0.2 K/cumm HISTORICAL RESULTS Neutrophils 10.4(L) 38.7 - 74.5 % HISTORICAL RESULTS Lymphocytes 41.2 20.0 - 54.3 % HISTORICAL RESULTS Monos 44.9(H) 4.3 - 13.5 % HISTORICAL RESULTS Comment:{Verified by periphe ral smear.} Eosinophils 3.2 0.0 - 6.0 % HISTORICAL RESULTS Basophils 0.3 0.0 - 3.0 % HISTORICAL RESULTS Blood specimen (specimen) 03/30/2015 6:26 AM CDT Travon Estrada MD LAB BLOOD ORDERABLES Final Result Performing Organization Address City/State/[facility] Co de Phone Number HISTORICAL RESULTS * Blood cell morphologic exam (03/30/2015 6:26 AM CDT) Pathologist [facility] Morphology scrn Original results obtained required verification by alternate method(s). Refer to CBC and/or observation sections for detailed results HISTORICAL RESULTS Blood specimen (specimen) 03/30/2015 6:26 AM CDT Travon Estrada MD LAB BLOOD ORDERABLES Final Result HISTORICAL RESULTS * Serum mononucleosis ab (03/30/2015 1:26 AM CDT) Mononucleosis Negative HISTOR ICAL RESULTS Serum 03/30/2015 1:26 AM CDT Narrative HISTORICAL RESULTS - 03/30/2015 2:41 AM CDT Interpretive Data Heterophile antibodies are short-lived. ??Therefore, a positive test is consistent with recent infection. ??Heterophile antibodies fail to develop in 0%-15% of adults and in a higher percentage of children. Nadine-Borrego virus Serology (IgG and IgM) testing should be performed to exclude disease in patients with a negative antibody test. Current interpretive data was last revised on 2010. us Travon Estrada MD LAB BLOOD ORDERABLES Final Result HISTORICAL RESULTS * All Microbiology Report Section (03/30/2015 12:00 AM CDT) 03/30/2015 Narrative HISTORICAL RESULTS - 03/30/2015 9:16 PM CDT ? [facility] ?[address] [facility] [address] ?[place], [place] [address] ? Patient Name: ??ADI NICHOLS ? Med Rec Number: [id number] ? [facility] Number: ?[id number] ? Date: ?1995 ? Sex/Age: ? Male 20 years ? Admit Date: ?03/30/2015 ? Discharge Date: ? Doctor: ?Medicine , ? Facility: ?[facility] ? Location: ?0121 [id number] 01 ?* Abnormal ??A Alert ??f Footnote ??^ Corrected ??L Low ??H High ?i Interp Data ??@ Ref Lab ? Chart Type:Cumulative ?* * * * MICROBIOLOGY - MOLECULAR TESTING * * * * ?PROCEDURE: Respiratory Pathogen Multiplex PCR ? SOURCE: Nasopharyngeal ? COLLECTED: 05/30/15 ??1643 ?BODY SITE: ? STARTED: 05/30/15 ??1834 ? FREE TEXT SOURCE: ? FINAL REPORT ? REPORTED: 05/30/15 1957 ? Respiratory Pathogen nucleic acids DETECTED (POSITIVE) for the ? following: ? Coronavirus NL63 ? ORDER COMMENTS ? (1)Testing performed by: [facility], [place] [address] ??Testing performed by: [facility], ? [place] [address] ?* * * ??Interpretive Results ??* * * ? (1)The [employer] (formerly known as [employer]) ? FilmArray Respiratory Panel (RP) assay is a multiplexed nucleic ? acid test capable of simultaneous qualitative detection and ? identification of multiple respiratory viral and bacterial ? nucleic acids. ??The following bacteria, viruses and virus ? subtypes can be identified using the FilmArray RP assay: ? Bordetella pertussis, Chlamydophila pneumoniae, Mycoplasma ? pneumoniae, Adenovirus, Coronavirus HKU1, Coronavirus NL63, ? Coronavirus 229E, Coronavirus OC43, Influenza A, Influenza A ? subtype H1, Influenza A subtype H3, Influenza A subtype 2009 H1, ? Influenza B, Metapneumovirus, Parainfluenza 1, Parainfluenza 2, ? Parainfluenza 3, Parainfluenza 4, RSV, Rhinovirus/Enterovirus. ? Due to the genetic similarity between human Rhinovirus and ? Enterovirus, the FilmArray RP assay cannot reliably ? differentiate them. Coronavirus OC43 may cross-react with some ? isolates of Coronavirus HKU1. ??A dual positive result may be due ? to cross-reactivity or may indicate a co-infection.A version of ? the FilmArray RP assay updated to include an additional ? adenovirus assay was approved by the FDA in December,. ??The ? updated version has demonstrated improved detection of ? adenoviruses relative to the previous version. ??All of the other ? assays for the 20 targets are unchanged. ??The detection and ? identification of specific viral and bacterial nucleic acids ? from individuals exhibiting signs and symptoms of a respiratory ? infection aids in the diagnosis of respiratory infection if used ? in conjunction with other clinical and epidemiological ? information. ??The results of this test should not be used as the ? sole basis for diagnosis, treatment, or other management ? decisions. ??Negative results in the setting of a respiratory ? illness may be due to infection with pathogens that are not ? detected by this test. ??Positive results do not rule out ? infection/co-infection with other organisms. ??The agent(s) ? detected by the FilmArray RP may not be the definite cause of ? disease. ??Additional testing (lab, imaging, etc) may be ? necessary when evaluating a patient with possible respiratory ? tract infection.The FilmArray RP assay is FDA cleared for HIDE BUFFER ? swabs. ??Additional sample types have been validated according to ? CLIA regulations. ??The performance characteristics of this assay ? have been determined by [facility] ? Lab.Current interpretive data was last revised on 2013. ? us Historical Provider MD [facility] GENER[facility] L ORDERABLES Final Result HISTORICAL RESULTS documented in this encounter Visit Diagnoses Diagnosis Eosinophilic esophagitis Immune thrombocytopenic purpura (HCC) Immune thrombocytopenic purpura Hypogammaglobulinemia (HCC) Unspecified hypogammaglobulinemia Liver replaced by transplant (HCC) Liver replaced by transplant Dysphagia Foreign body in esophagus Ulcer of esophagus without bleeding Enlarged lymph nodes Enlargement of lymph nodes Other acquired absence of organ Tobacco use disorder Other specified viral infection, in conditions classified elsewhere and of unspecified site Family history of diabetes mellitus Foreign body accidentally entering other orifice documented in this encounter
--- OUTSIDE RECORDS SUMMARY | 2024-10-28 06:29 | XMS_ITS | Encounter Summary ---
Author Organization [facility] Facility Care Team Providers Care Silverware Supervisor Name Role Phone Unavailable Primary Care Provider Unavailabl e Encounter Details Date Type Department Care Team (Late st Contact Info) Description 10/15/2016 10:21 AM BILLET BED OPERATOR - 10/15/2016 11:59 PM BILLET BED OPERATOR [facility] [address] [facility] [address] [place] [address] Generalized enlarged lymph nodes Social History Tobacco Use Types Packs/Day Years Used Date Smoking Tobacco: Never Assessed Sex and Gender Information Value Date Recorded Sex Assigned at Not on file Legal 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 08/08/2013 09/28/2018 tacrolimus (PROGRAF) 0.5 mg capsule 2 times daily. 10/29/2015 09/28/2018 documented as of this encounter Plan of Treatment Scheduled Procedures Name Priority Associated Diagnoses Date/Ti me COLONOSCOPY Encounter for screening for colorectal cancer in high risk patient Family history of rectal cancer documented as of this encounter Procedures Procedure Name Priority Date/Time Associated Diagnosis Comments REFERRED TEST, MISCELLANEOUS Routine 10/15/2016 11:08 AM BILLET BED OPERATOR DISCHARGE LABORATORY CUMULATIVE REPORT 10/15/2016 documented in this encounter Results * Referred test, miscellaneous (10/15/2016 11:08 AM BILLET BED OPERATOR) Referral specimen, test name Interleukin-10 CDR HISTORICAL RESULTS Referral lab, chem Testing performed by: [facility], [place] [address] CDR HISTORICAL RESULTS Referral specimen, test 1 Test Name: Interleukin-10 Specimen Type: serum Supplemental Comments: n/a Result: 7.0 Units: pg/mL Reference Range: <2.0 This test was developed and its performance characteristics determined by the performing reference laboratory in a manner consistent with CLIA requirements. ??This test has not been cleared or approved by the U.S. Food and Drug Administration CDR HISTORICAL RESULTS Miscellaneous 10/15/2016 11: 08 AM BILLET BED OPERATOR Regine Garcia MD LAB BLOOD ORDERABLES Final Result CDR HISTORICAL RESULTS * DISCHARGE LABORATORY CUMULATIVE REPORT (10/15/2016) Narrative 10/15/2016 Ordered by an unspecified provider. Historical Provider LAB BLOOD ORDERABLES Chata l Result documented in this encounter Visit Diagnoses Diagnosis Generalized enlarged lymph nodes Enlargement of lymph nodes documented in this encounter
--- OUTSIDE RECORDS SUMMARY | 2024-10-28 06:29 | XMS_ITS | Encounter Summary ---
Author Organization [facility] Facility Care Team Providers Care Laundry Worker Name Role Phone Unavailable Primary Care Provider Unavailabl e Encounter Details Date Type Department Care Team (Latest Contact Info) Description 07/12/2014 8:05 AM CDT - 07/12/2014 10:03 PM T Hospital Encounter [facility] Parish Mccullouhg MD [address] [facility] [phone] [place] [address] Cellulitis and abscess of trunk; Leukocytosis; Immune thrombocytopenic purpura (HCC); Other acquired absence of organ; Liver replaced by transplant (HCC); Encounter for long-term (current) use of other medications; Encounter for long-term (current) use of steroids; Family history of ischemic heart disease Social History Tobacco Use Types Packs/Day Years Used Date Smoking Tobacco: Never Assessed Sex and Gender Information Value Date Recorded Sex Assigned at Not on file 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 [place] Gender Identity Not on file Sexual Orientation [...] Name Priority Date/Time Associated Diagnosis Comments BLOOD POTASSIUM, MIXED VENOUS Routine 07/12/2014 5:30 PM CDT PLASMA PROTHROMBIN TIME (PT) Routine 07/12/2014 10:06 AM CDT PLASMA PARTIAL THROMBOPLASTIN TIME (PTT) Routine 07/12/2014 10:06 AM CDT SERUM LIPASE Routine 07/12/2014 9:59 AM CDT PLASMA HEPATIC FUNCTION PANEL Routine 07/12/2014 9:59 AM CDT PLASMA BASIC METABOLIC PANEL Routine 07/12/2014 9:59 AM CDT BLOOD CELL COUNT (CBC) Routine 4 9:59 AM CDT DISCHARGE LABORATORY CUMULATIVE REPORT Routine 07/12/2014 12:00 AM CDT documented in this encounter Results * Blood potassium, mixed venous (07/12/2014 5:30 PM CDT) Potassium, bld 4.2 3.3 - 4.9 mmol/L HISTORICAL RESULTS Mixed venous blood 07/12/2014 5:30 PM CDT us Jez STUART LAB BLOOD ORDERABLES Final R esult HISTORICAL RESULTS * Plasma partial thromboplastin time (PTT) (07/12/2014 10:06 AM CDT) APTT 28.1 25.0 - 37.0 seconds HISTORICAL RESULTS Comment: Interpretive Data Therapeutic heparin range:60.0 - 94.0 sec based on correlation with therapeutic heparin activity range of 0.3 -0.7 Units/mL. Current interpretive data was last revised on 2011. Plasma 07/12/2014 10:0 6 AM CDT us Jason Gonzales MD LAB BLOOD ORDERABLES Final Result Performing Organization Address [facility] de Phone Number HISTORICAL RESULTS * Plasma prothrombin time (PT) (07/12/2014 10:06 AM CDT) [facility] Prothrombin time (PT) 10.4 9.0 - 12.0 seconds HISTORICAL RESULTS INR 0.99 0.90 - 1.20 HISTORIC AL RESULTS Comment: Interpretive Data Inpatient therapeutic ranges* Atrial fibrillation ?2.0-3.0 INR Venous thrombo-embolism ?2.0-3.0 INR Bioprosthetic heart valve ?* Mechanical heart valve, bileaflet or tilting disk,aortic position ? 2.0-3.0 INR All other,or bileaflet or tilting disk, in mitral position ? 2.5-3.5 INR *See the pharmacy resource directory (PHRED) for an updated copy of the Tool Book at [email or web address] Current Interpretive Data was last revised 2012. Plasma 07/12/2014 10:0 6 AM CDT Jason Gonzales MD LAB BLOOD ORDERABLES Final Result Performing Organization Address [facility] de Phone Number HISTORICAL RESULTS * (ABNORMAL) Plasma hepatic function panel (07/12/2014 9:59 AM CDT) [facility] Protein, pl 7.5 6.5 - 8.5 g/dl HISTORICAL RESULTS Alb 4.2 3.6 - 5.0 g/dl HISTORICAL RESULTS Bilirubin 0.6 0.3 - 1.1 mg/dl HISTORICAL RESULTS Bilirubin, direct See Comment 0.0 - 0.3 mg/dl HISTORICAL RESULTS Comment:{CRDT; Hemolyzed spe cimen} Alk phos 143(H) 38 - 126 Units/L HISTORICAL RESULTS AST 75(H) 11 - 47 Units/L HISTORICAL RESULTS Comment:{Hemolyzed; result m ay be falsely elevated.} ALT 90(H) 7 - 53 Units/L HISTORICAL RESULTS Plasma 07/12/2014 9:59 AM CDT Berhane August MD LAB BLOOD ORDERABLES Final Res ult Performing Organization Address [facility] de Phone Number HISTORICAL RESULTS * (ABNORMAL) Plasma basic metabolic panel (07/12/2014 9:59 AM CDT) Sodium 137 135 - 145 mmol/L HISTORICAL RESULTS K, pl 5.4(H) 3.3 - 4.9 mmol/L HISTORICAL RESULTS Comment: Hemolyzed; (++++); potassium value may be falsely elevated by as much as 1.1 - 1.6 mmol/L. Suggest redraw and reanalysis. Chloride 100 97 - 110 mmol/L HISTORICAL RESULTS CO2 23 22 - 32 mmol/L HISTORICAL RESULTS A. gap 14 0 - 16 mmol/L HISTORICAL RESULTS Glucose 107 70 - 199 mg/dl HISTORICAL RESULTS BUN 11 8 - 25 mg/dl HISTORICAL RESULTS Creatinine 0.74 0.70 - 1.30 mg/dl HISTORICAL RESULTS Calcium 9.5 8.6 - 10.3 mg/dl HISTORICAL RESULTS Plasma 07/12/2014 9:59 AM CDT Berhane August MD LAB BLOOD ORDERABLES Final Res ult Performing Organization Address [facility] de Phone Number HISTORICAL RESULTS * Serum lipase (07/12/2014 9:59 AM CDT) Lip 40 0 - 99 Units/L HISTORICAL RESULTS Serum 07/12/2014 9:59 AM CDT us Berhane August MD LAB BLOOD ORDERABLES Final Res ult Performing Organization Address [facility] Co de Phone Number HISTORICAL RESULTS * (ABNORMAL) Blood cell count (CBC) (07/12/2014 9:59 AM CDT) WBC 26.8(H) 3.8 - 9.8 K/cumm HISTORICAL RESULTS RBC 5.17 4.50 - 5.70 M/cumm HISTORICAL RESULTS Hgb 16.6 13.8 - 17.2 g/dl HISTORICAL RESULTS Hct 50.3 40.7 - 50.3 % HISTORICAL RESULTS MCV 97.2 80.0 - 97.6 fl HISTORICAL RESULTS MCH 32.1 26.7 - 33.7 pg HISTORICAL RESULTS MCHC 33.0 32.7 - 35.5 g/dl HISTORICAL RESULTS Rdw 13.1 11.8 - 14.6 % HISTORICAL RESULTS Platelets 278 140 - 440 K/cumm HISTORICAL RESULTS MPV 8.6 6.8 - 10.4 fl HISTORICAL RESULTS Neutrophils 88.5(H) 38.7 - 74.5 % HISTORICAL RESULTS Lymphocytes 4.5(L) 20.0 - 54.3 % HISTORICAL RESULTS Monos 6.9 4.3 - 13.5 % HISTORICAL RESULTS Eosinophils 0.1 0.0 - 6.0 % HISTORICAL RESULTS Basophils 0.0 0.0 - 3.0 % HISTORICAL RESULTS Neutrophils, abs 23.7(H) 1.8 - 6.6 K/cumm HISTORICAL RESULTS Lymphocytes, abs 1.2 1.2 - 3.3 K/cumm HISTORICAL RESULTS Monocytes, absolute 1.8(H) 0.2 - 1.2 K/cumm HISTORICAL RESULTS Eosinophils, abs 0.0 0.0 - 0.5 K/cumm HISTORICAL RESULTS Basophils, abs 0.0 0.0 - 0.2 K/cumm HISTORICAL RESULTS Blood specimen (specimen) 07/12/2014 9:59 AM CDT us Berhane August MD LAB BLOOD ORDERABLES Final Res ult HISTORICAL RESULTS * Discharge Laboratory Cumulative Report (07/12/2014 12:00 AM CDT) 07/12/2014 Narrative HISTORICAL RESULTS - 07/13/2014 3:16 AM CDT ?[facility] ?Department of Laboratories ? [address] [facility] [place] ? [place] [address] Patient Name: ??ADI NICHOLS Med Rec Number: [id number] Fin Number: ?[id number] Date: ?1995 Sex/Age: ? Male 19 years Admit Date: ?07/12/2014 Discharge Date: 07/12/2014 Doctor: ?Parish Schaefer Facility: ?[facility] Location: ?OBS-1 Chart Printed: 07/13/2014 03:16 ?? * Abnormal ?? C Critical ?? f Footnote ?? ^ Corrected ?? L Low ?? H High ? i Interp Data ?? @ Reference Lab ?Chart Type:Cumulative ? SELECTED ELECTROLYTES ?Test: Sodium ? Plasma Potassium ??Chloride ? Reference: [135-145] ??[3.3-4.9] ? [97-110] ? Units: mmol/L ? mmol/L ?mmol/L 07/12/2014 ?? 09:59:00 ?? 137 ?5.4 ??Hf ? 100 07/12/2014 09:59:00 ??Plasma Potassium: Hemolyzed; (++++); potassium value may be falsely elevated by as much as 1.1 - 1.6 mmol/L. Suggest redraw and reanalysis. ?Test: Total CO2 ??Anion Gap ? Reference: [22-32] ?[0-16] ? Units: mmol/L ? mmol/L 07/12/2014 ?? 09:59:00 ?? 23 ? 14 ? Whole Blood Electrolytes ?Test: Whole Blood Potassium ? Reference: [3.3-4.9] ? Units: mmol/L 07/12/2014 ?? 17:30:00 ?? 4.2 ? STANDARD BLOOD CHEMISTRY ?Test: BUN ? Creatinine ?? Total Bilirubin ? Reference: [8-25] ??[0.70-1.30] ??[0.3-1.1] ? Units: mg/dL ?? mg/dL ?mg/dL 07/12/2014 ?? 09:59:00 ?? 11 ?0.74 ? 0.6 ? STANDARD BLOOD CHEMISTRY ?Test: Bilirubin, Direct ??Glucose ?? Total Calcium ? Reference: [0.0-0.3] ?[70-199] ??[8.6-10.3] ? Units: mg/dL ?mg/dL ? mg/dL 07/12/2014 ?? 09:59:00 ?? See Comment ??f ? 107 ? 9.5 07/12/2014 09:59:00 ??Bilirubin, Direct: CRDT; Hemolyzed specimen ?Test: Plasma Total Protein ??Albumin ? Reference: [6.5-8.5] ? [3.6-5.0] ? Units: g/dL ?g/dL 07/12/2014 ?? 09:59:00 ?? 7.5 ? 4.2 ?ENZYMES ?Test: Alkaline Phosphatase ??ALT ?AST ? Reference: [38-126] ?[7-53] ?? [11-47] ? Units: Units/L ? Units/L ??Units/L 07/12/2014 ?? 09:59:00 ?? 143 ??H ?90 ??H ?75 ??Hf 07/12/2014 09:59:00 ??AST: Hemolyzed; result may be falsely elevated. ?Test: Lipase ? Reference: [0-99] ? Units: Units/L 07/12/2014 ?? 09:59:00 ?? 40 ? COMPLETE BLOOD COUNT ?Test: WBC ?RBC ?Hgb ? Reference: [3.8-9.8] ??[4.50-5.70] ??[13.8-17.2] ? Units: K/cumm ? M/cumm ? g/dL 07/12/2014 ?? 09:59:33 ?? 26.8 ??H ?5.17 ? 16.6 ?Test: Hct ?Platelet Ct ??MCV ? Reference: [40.7-50.3] ??[140-440] ?[80.0-97.6] ? Units: % ?K/cumm ? fL 07/12/2014 ?? 09:59:33 ?? 50.3 ? 278 ?97.2 ?Test: MCH ?MCHC ? RDW ? Reference: [26.7-33.7] ??[32.7-35.5] ??[11.8-14.6] ? Units: pg ? g/dL ? % 07/12/2014 ?? 09:59:33 ?? 32.1 ? 33.0 ? 13.1 ? COMPLETE BLOOD COUNT ?Test: MPV ? Reference: [6.8-10.4] ? Units: fL 07/12/2014 ?? 09:59:33 ?? 8.6 ? AUTOMATED WHITE CELL DIFFERENTIAL ?Test: Neut Pct Auto ??Lymph Pct Auto ??[place] Pct Auto ? Reference: [38.7-74.5] ?[20.0-54.3] ? [4.3-13.5] ? Units: % ?% ? % 07/12/2014 ?? 09:59:33 ?? 88.5 ??H ?4.5 ??L ?6.9 ?Test: Eos Pct Auto ??Baso Pct Auto ??Neut Abs Auto ? Reference: [0.0-6.0] ? [0.0-3.0] ?[1.8-6.6] ? Units: % ? % ?K/cumm 07/12/2014 ?? 09:59:33 ?? 0.1 ? 0.0 ?23.7 ??H ?Test: Lymph Abs Auto ??Highlands Abs Auto ??Eos Abs Auto ? Reference: [1.2-3.3] ? [0.2-1.2] ?[0.0-0.5] ? Units: K/cumm ?K/cumm ? K/cumm 07/12/2014 ?? 09:59:33 ?? 1.2 ? 1.8 ??H ? 0.0 ?Test: Baso Abs Auto ? Reference: [0.0-0.2] ? Units: K/cumm 07/12/2014 ?? 09:59:33 ?? 0.0 ? HEMOSTASIS AND THROMBOSIS ?Routine Coagulation Studies ?Test: PT ?INR i ?aPTT i ? Reference: [9.0-12.0] ??[0.90-1.20] ??[25.0-37.0] ? Units: sec ?sec 07/12/2014 ?? 10:06:00 ?? 10.4 ?0.99 ? 28.1 07/12/2014 10:06:00 INR: Interpretive Data Inpatient therapeutic ranges* Atrial fibrillation ?2.0-3.0 INR Venous thrombo-embolism ?2.0-3.0 INR Bioprosthetic heart valve ?* Mechanical heart valve, bileaflet or tilting disk,aortic position ? 2.0-3.0 INR All other,or bileaflet or tilting disk, in mitral position ? 2.5-3.5 INR *See the pharmacy resource directory (blur GroupED) for an updated copy of the Tool Book at [email or web address] Current Interpretive Data was last revised 2012. ? HEMOSTASIS AND THROMBOSIS ?Routine Coagulation Studies 07/12/2014 10:06:00 aPTT: Interpretive Data Therapeutic heparin range:60.0 - 94.0 sec based on correlation with therapeutic heparin activity range of 0.3 -0.7 Units/mL. Current interpretive data was last revised on 2011. ? CANCELLED TESTS Date ?Time ?Test ??Cancel Reason 07/12/2014 ??21:06:00 ??CBC ?? NCHG Canceled by ED us Historical Provider LAB BLOOD ORDERABLES Chata cuadra Result HISTORICAL RESULTS documented in this encounter Visit Diagnoses Diagnosis Cellulitis and abscess of trunk Leukocytosis Leukocytosis, unspecified Immune thrombocytopenic purpura (HCC) Immune thrombocytopenic purpura Other acquired absence of organ Liver replaced by transplant (HCC) Liver replaced by transplant Encounter for long-term (current) use of other medications Encounter for long-term (current) use of steroids Family history of ischemic heart disease documented in this encounter
--- OUTSIDE RECORDS SUMMARY | 2024-10-28 06:29 | XMS_ITS | Encounter Summary ---
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
--- OUTSIDE RECORDS SUMMARY | 2024-10-28 06:29 | XMS_ITS | Encounter Summary ---
Author Organization [facility] Facility Care Team Providers Care Soldering Machine Operator Helper Name Role Phone Unavailable Primary Care Provider Unavailabl e Encounter Details Date Type Department Care Team (Latest Contact Info) Description 10/15/2016 8:00 AM INSTRUCTIONAL SYSTEMS SPECIALIST - 10/15/2016 11:59 PM INSTRUCTIONAL SYSTEMS SPECIALIST [facility] [address] [facility] [address] [place] [address] Immune thrombocytopenic purpura (CMS/HCC); Generalized enlarged lymph nodes; Other nonspecific abnormal finding of lung field Social History Tobacco Use Types Packs/Day Years Used Date Smoking Tobacco: Never Assessed Sex and Gender Information Value Date Recorded Sex Assigned at Not on file Legal Sex Male 6:28 AM INSTRUCTIONAL SYSTEMS SPECIALIST Gender Identity Not on file Sexual [...] Diagnosis Comments REFERRED TEST, MISCELLANEOUS Routine 10/15/2016 11:10 AM INSTRUCTIONAL SYSTEMS SPECIALIST REFERRED TEST, MISCELLANEOUS Routine 10/15/2016 11:09 AM INSTRUCTIONAL SYSTEMS SPECIALIST REFERRED TEST, MISCELLANEOUS Routine 10/15/2016 11:08 [address] IN[address]CTIONAL SYSTEMS [address] CT CHEST WO CONTRAST Routine 10/15/2016 8:10 AM INSTRUCTIONAL SYSTEMS SPECIALIST REFERENCE LABORATORY MISCELLANEOUS TESTING 10/15/2016 REFERENCE LABORATORY MISCELLANEOUS TESTING 10/15/2016 documented in this encounter Results * Referred test, miscellaneous (10/15/2016 11:10 AM INSTRUCTIONAL SYSTEMS SPECIALIST) Referral lab, chem Testing performed by: [place] [address] CDR HISTORICAL RESULTS Referral specimen, test name Soluble Fas-Ligand (sFasL) CDR HISTORICAL RESULTS Referral specimen, test 1 Test Name: Soluble Fas-Ligand (sFasL) Specimen Type:SERUM Result: 157 Units: pg/mL Reference Range: 37-226 CDR HISTORICAL RESULTS Miscellaneous 10/15/2016 11: 10 AM INSTRUCTIONAL SYSTEMS SPECIALIST us Regine Garcia MD LAB BLOOD ORDERABLES Final Result Performing Organization Address [facility] de Phone Number CDR HISTORICAL RESULTS * Referred test, miscellaneous (10/15/2016 11:09 AM INSTRUCTIONAL SYSTEMS SPECIALIST) Referral specimen, test name ALPS Panel CDR HISTORICAL RESULTS Referral lab, chem Testing performed by: [place] [address] CDR HISTORICAL RESULTS Referral specimen, test 1 Test Name: ALPS Panel Specimen Type:EDTA WHOLE BLOOD Supplemental Comments: _ Result: See scanned report CDR HISTORICAL RESULTS Miscellaneous 10/15/2016 11: 09 AM INSTRUCTIONAL SYSTEMS SPECIALIST us Regine Garcia MD LAB BLOOD ORDERABLES Final Result Performing Organization Address [facility] Co de Phone Number CDR HISTORICAL RESULTS * Referred test, miscellaneous (10/15/2016 11:08 AM INSTRUCTIONAL SYSTEMS SPECIALIST) Referral specimen, test name Interleukin-18 (IL-18) CDR HISTORICAL RESULTS Referral lab, chem Testing performed by: [facility], [place] [address] CDR HISTORICAL RESULTS Referral specimen, test 1 Test Name: Interleukin-18 (IL-18) Specimen Type: SERUM Supplemental Comments: N/A Result: See separate report scanned into the Clinical Desktop Scanned Laboratory Reports Tab. This test was developed and its performance characteristics determined by the performing reference laboratory in a manner consistent with CLIA requirements. ??This test has not been cleared or approved by the U.S. Food and Drug Administration CDR HISTORICAL RESULTS Miscellaneous 10/15/2016 11: 08 AM INSTRUCTIONAL SYSTEMS SPECIALIST Regine Garcia MD LAB BLOOD ORDERABLES Final Result CDR HISTORICAL RESULTS * CT Chest WO Contrast (10/15/2016 8:10 AM INSTRUCTIONAL SYSTEMS SPECIALIST) Anatomical Region Laterality Modality Body N/A Computed Tomogra phy 10/15/2016 8:10 AM INSTRUCTIONAL SYSTEMS SPECIALIST Narrative 10/15/2016 9:51 AM INSTRUCTIONAL SYSTEMS SPECIALIST RUTH ANN ROPER M.D. EFRAÍN ORTIZ M.D. FINAL REPORT The radiology attending physician has personally reviewed this study, and has reviewed and/or edited this written report and agrees with it. ACC# ??Date Time ??Exam [id number] Oct 15, 2016 08:10:[address] Chest without contrast ACC# ??Date Time ??Exam [id number] Oct 15, 2016 08:10:[address] Chest without contrast EXAMINATION: ?CT chest without contrast HISTORY: ??Immune thrombocytopenic purpura TECHNIQUE: ??Transaxial CT images through the chest were obtained without contrast, according to standard protocol. FINDINGS: ??Comparison imaging is not available. There is mild biapical scarring. Areas of mild air trapping are noted. There are diffuse ground glass opacities, more prominent in the right lower and left upper lobes. Tree-in-bud nodularity is best seen in the left lower lobe. There are multiple more discrete superimposed pulmonary nodules. For reference, a nodule in the right upper lobe on slice 813.8 measures 7 mm. A nodule in the left lower lobe on slice 693.8 measures 5 mm. A right lower lobe opacity on slice 673.8 measures 1.6 cm x 1.2 cm and may be related to infection versus post-infectious scarring. There is no pulmonary effusion or pneumothorax. The heart size is normal. There is no pericardial effusion. Soft tissue fullness begins in the subcarinal region and extends inferiorly almost to the diaphragm. There are enlarged bilateral axillary lymph nodes. For reference, a right axillary node on slice 836.8 measures 1.32 cm in short axis dimension. A left axillary node on slice 860.8 measures 1.6 cm in short axis dimension. Supraclavicular lymphadenopathy is also noted with right node on slice 900.8 measuring 1.2 cm in short axis dimension. Hilar lymphadenopathy is seen with a right hilar node on slice 752.8 measuring 1.0 cm in short axis dimension. Calcified hilar nodes can be seen with old granulomatous disease. Cervical lymphadenopathy is partially visualized. The thyroid gland is normal. Evaluation of the upper abdomen demonstrates numerous surgical clips in the right and left upper quadrants consistent with known history of liver transplantation and splenectomy. Adjacent to the right edge of the transplanted liver on slice 596.8 is a round area containing an air-fluid level. This is likely within bowel, but is incompletely visualized. Bone windows do not demonstrate concerning osseous lesions. ?? IMPRESSION: 1. Pulmonary groundglass opacities and tree-in-bud nodularity, concerning for opportunistic infection given the patient's chronic immunosuppression. 2. Multiple more discrete pulmonary nodules, also possibly inflammatory. Comparison to outside imaging is recommended, if available, to assess for stability. 3. Diffuse lymphadenopathy in the chest, axilla, and partially visualized within the neck, which is likely reactive. 4. Soft tissue fullness in the subcarinal region which may represent a dilated azygous vein versus, less likely, lymphadenopathy. Correlation with outside imaging is recommended. If this is not available, a repeat CT of the chest with contrast would be beneficial. ?? Requested By: Dictated By: ?? EFRAÍN ORTIZ M.D. ??on Oct 15 2016 ??8:52A This document has been electronically signed by: RUTH ANN ROPER M.D. on Oct 15 2016 ??9:51A [id number] Procedure Note Provider, MD Dl - 03/08/2017 RUTH ANN ROPER M.D. EFRAÍN ORTIZ M.D. FINAL REPORT The radiology attending physician has personally reviewed this study, and has reviewed and/or edited this written report and agrees with it. ACC# Date Time Exam [id number] Oct 15, 2016 08:10:[address] Chest without contrast ACC# Date Time Exam [id number] Oct 15, 2016 08:10:[address] Chest without contrast EXAMINATION: CT chest without contrast HISTORY: Immune thrombocytopenic purpura TECHNIQUE: Transaxial CT images through the chest were obtained without contrast, according to standard protocol. FINDINGS: Comparison imaging is not available. There is mild biapical scarring. Areas of mild air trapping are noted. There are diffuse ground glass opacities, more prominent in the right lower and left upper lobes. Tree-in-bud nodularity is best seen in the left lower lobe. There are multiple more discrete superimposed pulmonary nodules. For reference, a nodule in the right upper lobe on slice 813.8 measures 7 mm. A nodule in the left lower lobe on slice 693.8 measures 5 mm. A right lower lobe opacity on slice 673.8 measures 1.6 cm x 1.2 cm and may be related to infection versus post-infectious scarring. There is no pulmonary effusion or pneumothorax. The heart size is normal. There is no pericardial effusion. Soft tissue fullness begins in the subcarinal region and extends inferiorly almost to the diaphragm. There are enlarged bilateral axillary lymph nodes. For reference, a right axillary node on slice 836.8 measures 1.32 cm in short axis dimension. A left axillary node on slice 860.8 measures 1.6 cm in short axis dimension. Supraclavicular lymphadenopathy is also noted with right node on slice 900.8 measuring 1.2 cm in short axis dimension. Hilar lymphadenopathy is seen with a right hilar node on slice 752.8 measuring 1.0 cm in short axis dimension. Calcified hilar nodes can be seen with old granulomatous disease. Cervical lymphadenopathy is partially visualized. The thyroid gland is normal. Evaluation of the upper abdomen demonstrates numerous surgical clips in the right and left upper quadrants consistent with known history of liver transplantation and splenectomy. Adjacent to the right edge of the transplanted liver on slice 596.8 is a round area containing an air-fluid level. This is likely within bowel, but is incompletely visualized. Bone windows do not demonstrate concerning osseous lesions. IMPRESSION: 1. Pulmonary groundglass opacities and tree-in-bud nodularity, concerning for opportunistic infection given the patient's chronicimmunosuppression. 2. Multiple more discrete pulmonary nodules, also possibly inflammatory. Comparison to outside imaging is recommended, if available, to assess for stability. 3. Diffuse lymphadenopathy in the chest, axilla, and partially visualized within the neck, which is likely reactive. 4. Soft tissue fullness in the subcarinal region which may represent a dilated azygous vein versus, less likely, lymphadenopathy. Correlation with outside imaging is recommended. If this is not available, a repeat CT of the chest with contrast would be beneficial. Requested By: Dictated By: EFRAÍN ORTIZ M.D. on Oct 15 2016 8:52A This document has been electronically signed by: RUTH ANN ROPER M.D. on Oct 15 2016 9:51A [id number] [facility] Provider IMG CT PROCEDURES Final R esult * REFERENCE LABORATORY MISCELLANEOUS TESTING (10/15/2016) Narrative 10/15/2016 Ordered by an unspecified provider. [facility] Provider LAB BLOOD ORDERABLES Chata l Result * REFERENCE LABORATORY MISCELLANEOUS TESTING (10/15/2016) Narrative 10/15/2016 Ordered by an unspecified provider. [facility] Provider LAB BLOOD ORDERABLES Chata l Result documented in this encounter Visit Diagnoses Diagnosis Immune thrombocytopenic purpura (HCC) Immune thrombocytopenic purpura Generalized enlarged lymph nodes Enlargement of lymph nodes Other nonspecific abnormal finding of lung field documented in this encounter
--- OUTSIDE RECORDS SUMMARY | 2024-10-28 06:29 | XMS_ITS | Encounter Summary ---
Author Organization [facility] Facility Care Team Providers Care Hearing Aid Mechanic Name Role Phone Unavailable Primary Care Provider Unavailabl e Encounter Details Date Type Department Care Team (Late st Contact Info) Description 10/07/2016 1:53 PM SEAMSTRESS FITTER - 10/07/2016 11:59 PM SEAMSTRESS FITTER Hospital [facility] CLINCON[facility] Dillon MD [address] [place] [address] Social History Tobacco Use Types Packs/Day Years Used Date Smoking Tobacco: Never Assessed Sex and Gender Information Value Date Recorded Sex Assigned at Not on file Legal Sex Male 6:28 AM SEAMSTRESS FITTER Gender Identity Not on file Sexual [...] Name Priority Date/Time Associated Diagnosis Comments XR CONSULT OF OUTSIDE FILMS (PEDS ONLY) Routine 10/07/2016 7:15 PM SEAMSTRESS FITTER documented in this encounter Results * XR Interpretation Of Outside Films (10/07/2016 7:15 PM SEAMSTRESS FITTER) Anatomical Region Laterality Modality N/A Radiographic Shilpi ging 10/07/2016 7:15 PM SEAMSTRESS FITTER Narrative 10/08/2016 5:58 AM SEAMSTRESS FITTER OUTSIDE IMAGES HEAVY EQUIPMENT DIESEL MECHANIC, FINAL REPORT ACC# ??Date Time ??Exam [id number] Oct 07, 2016 19:15:00 [id number] [facility] Plain Film Reference EXAMINATION: ?Images For Reference Purposes Only IMPRESSION: ?These images have been uploaded for Reference purposes only. ??There will be no separate report generated by a [facility] Radiologist. Requested By: Dictated By: ?? OUTSIDE IMAGES HEAVY EQUIPMENT DIESEL MECHANIC, ?? on Oct ??2015 ??5:58A This document has been electronically signed by: OUTSIDE IMAGES HEAVY EQUIPMENT DIESEL MECHANIC, ??on Oct ??2015 ??5:58A [id number] Procedure Note Provider, Dl, - 03/08/2017 OUTSIDE IMAGES HEAVY EQUIPMENT DIESEL MECHANIC, FINAL REPORT ACC# Date Time Exam [id number] Oct 07, 2016 19:15:00 [id number] [facility] Plain Film Reference EXAMINATION: Images For Reference Purposes Only IMPRESSION: These images have been uploaded for Reference purposes only. There will be no separate report generated by a [facility] Radiologist. Requested By: Dictated By: OUTSIDE IMAGES HEAVY EQUIPMENT DIESEL MECHANIC, on Oct 08 2016 5:58A This document has been electronically signed by: OUTSIDE IMAGES HEAVY EQUIPMENT DIESEL MECHANIC, on Oct 08 2016 5:58A [id number] us Historical Provider [facility]oni XR PROCEDURES Final R esult documented in this encounter Visit Diagnoses Not on filedocumented in this encounter
--- OUTSIDE RECORDS SUMMARY | 2024-10-28 06:29 | XMS_ITS | Encounter Summary ---
Author Organization [facility] Facility Care Team Providers Care Artifacts Conservator Name Role Phone Unavailable Primary Care Provider Unavailabl e Encounter Details Date Type Department Care Team (Late st Contact Info) Description 11/12/2015 9:36 PM HARBOR POLICE LAUNCH COMMANDER - 11/13/2015 3:41 AM HARBOR POLICE LAUNCH COMMANDER Hospital En[facility] CL[facility]CONPhilip Garrett MD [address] [place] [address] Cutaneous abscess of neck; Acute lymphadenitis of face, head and neck; History of liver transplant (CMS/HCC) Social History Tobacco Use Types Packs/Day Years Used Date Smoking Tobacco: Never Assessed Sex and Gender Information Value Date Recorded Sex Assigned at Not on file Legal Sex Male 6:28 AM HARBOR POLICE LAUNCH COMMANDER Gender Identity Not on file Sexual Orientation [...] Procedure Name Priority Date/Time Associated Diagnosis Comments AEROBIC/ANAEROBIC CULTURE AND GRAM STAIN, CDR Routine 11/13/2015 3:18 AM HARBOR POLICE LAUNCH COMMANDER PLASMA COMPREHENSIVE METABOLIC PANEL Routine 11/13/2015 1:56 AM HARBOR POLICE LAUNCH COMMANDER BLOOD CELL COUNT Routine 11/13/2015 1:56 AM HARBOR POLICE LAUNCH COMMANDER BLOOD HUMAN IMMUNODEFICIENCY VIRUS Routine 11/13/2015 1:24 AM HARBOR POLICE LAUNCH COMMANDER ALL MICROBIOLOGY REPORT SECTION Routine 11/13/2015 12:00 AM HARBOR POLICE LAUNCH COMMANDER DISCHARGE LABORATORY CUMULATIVE REPORT 11/13/2015 documented in this encounter Results * Aerobic/anaerobic culture and Gram stain (11/13/2015 3:18 AM HARBOR POLICE LAUNCH COMMANDER) Organism [id number] HISTORICAL RESULTS Abscess (Neck, right) 11/13/2015 3:18 AM HARBOR POLICE LAUNCH COMMANDER 11/13/2015 6:03 AM HARBOR POLICE LAUNCH COMMANDER Impressions HISTORICAL RESULTS - 11/25/2015 11:08 AM HARBOR POLICE LAUNCH COMMANDER Specimens submitted from normally sterile body sites will have all bacterial morphotypes identified. ??Specimens that contain grossly mixed ellie and/or are from body sites that are not normally sterile will be examined for Staphylococcus aureus, Pseudomonas aeruginosa, beta-hemolytic strep, vancomycin-resistant Enterococcus, Bacteroides fragilis, Clostridium perfringens and fungus. ??If any of these are isolated, the organism will be reported. Current interpretive data was last revised on 2013. Narrative HISTORICAL RESULTS - 11/25/2015 11:08 AM HARBOR POLICE LAUNCH COMMANDER Abundant Staphylococcus aureus Methicillin susceptible (MSSA) by penicillin binding protein 2a (PBP2a) testing. Few polymorphonuclear leukocytes seen. Few Gram Positive Cocci red blood cells Organism Antibiotic Method Susceptibility Staphylococcus aureus Vancomycin Susceptible Staphylococcus aureus Trimethoprim with Sulfamethoxazo le Susceptible Staphylococcus aureus Linezolid Susceptible Staphylococcus aureus Doxycycline Susceptible Staphylococcus aureus Clindamycin Susceptible Staphylococcus aureus Erythromycin Susceptible Staphylococcus aureus Oxacillin Susceptible Staphylococcus aureus Cefazolin Susceptible Staphylococcus aureus Ceftriaxone Susceptible us Historical Provider LAB MICROBIOLOGY - GENERA L ORDERABLES Final Result HISTORICAL RESULTS * (ABNORMAL) Plasma comprehensive metabolic panel (11/13/2015 1:56 AM HARBOR POLICE LAUNCH COMMANDER) Pathologist [facility] Sodium 139 135 - 145 mmol/L HISTORICAL RESULTS K, pl 4.1 3.3 - 4.9 mmol/L HISTORICAL RESULTS Chloride 105 97 - 110 mmol/L HISTORICAL RESULTS CO2 26 22 - 32 mmol/L HISTORICAL RESULTS A. gap 8 0 - 16 mmol/L HISTORICAL RESULTS Glucose 92 70 - 199 mg/dl HISTORICAL RESULTS BUN 14 8 - 25 mg/dl HISTORICAL RESULTS Creatinine 0.78 0.70 - 1.30 mg/dl HISTORICAL RESULTS Calcium 8.9 8.6 - 10.3 mg/dl HISTORICAL RESULTS Protein, pl 6.3(L) 6.5 - 8.5 g/dl HISTORICAL RESULTS Alb 3.9 3.6 - 5.0 g/dl HISTORICAL RESULTS Bilirubin 0.4 0.3 - 1.1 mg/dl HISTORICAL RESULTS Alk phos 138(H) 38 - 126 Units/L HISTORICAL RESULTS AST 50(H) 11 - 47 Units/L HISTORICAL RESULTS ALT 78(H) 7 - 53 Units/L HISTORICAL RESULTS Plasma 11/13/2015 1:56 AM HARBOR POLICE LAUNCH COMMANDER us Lydia Collazo MD LAB BLOOD ORDERABLES Chata l Result HISTORICAL RESULTS * Blood cell count [CBC] express (11/13/2015 1:56 AM HARBOR POLICE LAUNCH COMMANDER) Pathologist [facility] WBC 6.9 3.8 - 9.8 K/cumm HISTORICAL RESULTS RBC 4.52 4.50 - 5.70 M/cumm HISTORICAL RESULTS Hgb 14.3 13.8 - 17.2 g/dl HISTORICAL RESULTS Hct 43.0 40.7 - 50.3 % HISTORICAL RESULTS MCV 95.1 80.0 - 97.6 fl HISTORICAL RESULTS MCH 31.7 26.7 - 33.7 pg HISTORICAL RESULTS MCHC 33.3 32.7 - 35.5 g/dl HISTORICAL RESULTS Rdw 14.0 11.8 - 14.6 % HISTORICAL RESULTS Platelets 275 140 - 440 K/cumm HISTORICAL RESULTS MPV 8.1 6.8 - 10.4 fl HISTORICAL RESULTS Blood specimen (specimen) 11/13/2015 1:56 AM HARBOR POLICE LAUNCH COMMANDER us Lydia Collazo MD LAB BLOOD ORDERABLES Chata l Result HISTORICAL RESULTS * Blood Human Immunodeficiency virus [HIV] rapid screen (11/13/2015 1:24 AM HARBOR POLICE LAUNCH COMMANDER) HIV ab Negative Negative HISTORICAL RESULTS Blood specimen (specimen) 11/13/2015 1:24 AM HARBOR POLICE LAUNCH COMMANDER us Berhane August MD LAB BLOOD ORDERABLES Final Res ult HISTORICAL RESULTS * DISCHARGE LABORATORY CUMULATIVE REPORT (11/13/2015) Narrative 11/13/2015 Ordered by an unspecified provider. us Historical Provider MD LAB BLOOD ORDERABLES Chata l Result * All Microbiology Report Section (11/13/2015 12:00 AM HARBOR POLICE LAUNCH COMMANDER) 11/13/2015 Narrative HISTORICAL RESULTS - 11/25/2015 12:29 PM HARBOR POLICE LAUNCH COMMANDER ? [facility] ?[address] [facility] [address] ?[place], [place] [address] ? Patient Name: ??ADI NICHOLS ? Med Rec Number: [id number] ? Fin Number: ?[id number] ? Date: ?1995 ? Sex/Age: ? Male 20 years ? Admit Date: ?11/12/2015 ? Discharge Date: 11/13/2015 ? Doctor: ?Philip Solano ? Facility: ?[facility] ? Location: ?EM-11 ?* Abnormal ??A Alert ??f Footnote ??^ Corrected ??L Low ??H High ?i Interp Data ??@ Ref Lab ? Chart Type:Cumulative ?* * * * MICROBIOLOGY - WOUND and EXUDATES * * * * ?PROCEDURE: Aerobic and Anaerobic Culture, Wound and Gram Stain ? SOURCE: Abscess ? COLLECTED: /13/16 ??0318 ?BODY SITE: Neck, right ? STARTED: /13/16 ??0603 ? FREE TEXT SOURCE: ? DIRECT SPECIMEN EXAMINATION ? Stain ? REPORTED: 11/13/15 0842 ? Few polymorphonuclear leukocytes seen. ? Few Gram Positive Cocci ? red blood cells ? FINAL REPORT ? REPORTED: 11/25/15 1108 ? Abundant Staphylococcus aureus Methicillin susceptible (MSSA) by ? penicillin binding protein 2a (PBP2a) testing. ? SUSCEPTIBILITY RESULTS ? Staphylococcus aureus ?SUSCEPTIBLE: Vancomycin, ? Trimethoprim with Sulfamethoxazole, ? Linezolid,Doxycycline, ? Clindamycin,Erythromycin, ? Oxacillin,Cefazolin,Ceftriaxone ?* * * ??Interpretive Results ??* * * ? (1)Specimens submitted from normally sterile body sites will have ? all bacterial morphotypes identified. ??Specimens that contain ? grossly mixed ellie and/or are from body sites that are not ? normally sterile will be examined for Staphylococcus aureus, ? Pseudomonas aeruginosa, beta-hemolytic strep, ? vancomycin-resistant Enterococcus, Bacteroides fragilis, ? Clostridium perfringens and fungus. ??If any of these are ? isolated, the organism will be reported.Current interpretive ? data was last revised on 2013. ? us Historical Provider LAB MICROBIOLOGY - GENERA L ORDERABLES Final Result HISTORICAL RESULTS documented in this encounter Visit Diagnoses Diagnosis Cutaneous abscess of neck Acute lymphadenitis of face, head and neck Acute lymphadenitis History of liver transplant (CMS/HCC) (HCC) Liver replaced by transplant documented in this encounter
--- OUTSIDE RECORDS SUMMARY | 2024-10-28 06:29 | XMS_ITS | Encounter Summary ---
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 Name Role Phone Unknown, Notinfile Primary Care Provider Unavail able Unknown, Notinfile Primary Care Provider Unavail able Kali Cruz MD Primary Care Provider [phone] Encounter Details Date Type Department Care Team (Latest Contact Info) Description 04/03/2017 12:58 AM CDT - 04/09/2017 6:10 PM CDT Hospital Encounter [facility] [address] [place] [address] Juve Thompson MD [address] [place] [address] [place] [address] [facility] [address] [place] [address] Discharge Disposition: Discharge to home or self care Social History Tobacco Use Types Packs/Day Years Used Date Smoking Tobacco: Never Assessed Sex and Gender Information Value Date Recorded Sex Assigned at Not on file Legal 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 Gender Identity Not on file Sexual Orientation Straight 08/22/2021 9: 23 AM CDT documented as of this encounter Last Filed Vital Signs Vital Sign Reading Time Taken Comments Blood Pressure 108/68 04/09/2017 5:34 PM CDT Pulse 79 04/09/2017 5:34 PM CDT Temperature - - Respiratory Rate - - Oxygen Saturation 100% 04/09/2017 5:34 PM CDT Inhaled Oxygen Concentration - - Weight 54.5 kg (120 lb 3.1 oz) 04/03/2017 12:08 AM CDT Height 170.2 cm (5' 7 ) 04/03/2017 12:08 AM CDT Body Mass Index 18.83 04/03/2017 12:08 AM CDT documented in this encounter Medications at Time of Discharge predniSONE (DELTASONE) 20 mg tablet Take 10 mg by mouth. 08/08/2013 09/28/2018 tacrolimus (PROGRAF) 0.5 mg capsule 2 times daily. 10/29/2015 09/28/2018 documented as of this encounter Discharge Disposition Disposition Code Departure Means Destination Discharge to home or self care documented in this encounter Consult Notes * Miscellaneous, Not In File - 04/05/2017 5:00 AM CDT Patient: BEKA LARES Reg No: [id number] H #: [id number] Admit Dt.: 04/02/2017 : 1995 Room No: 11332-09 Attending: Diogenes Carrera M.D. Consulting: Asmita Norris M.D. Dictating: Jp Mcginnis M.D. Service Dt: 04/05/2017 OTOLARYNGOLOGY HEAD AND NECK SURGERY CONSULTATIONFACILITY ID[facility] COMPLAINTCervical lymphadenopathy.HISTORY OF PRESENT ILLNESSMr. 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 The patient notes the onset ofodynophagia and cervical discomfort starting 4 days ago. He continues totolerate a general diet well without difficulty or concerns foraspiration.He notes that over the past year, he has had fluctuating cervical lymph nodeswhich are often minimally tender to palpation. A PET scan was performed on04/05/2017 which identified extensive lymphadenopathy throughout in thecervical, supraclavicular, axillary and mediastinal regions with the greatestamount of uptake within the right levelII region with a maximum SUV of 39.5.The patient has previously been diagnosed with both EBV and CMV viremia. Hiscurrent EBV IgM titer is positive. Due to his previous identifiedmediastinal lymphadenopathy, the patient underwent a EVUS with Thoracicsurgery this past March which identified EBV on FISH analysis. ENTconsultation was placed on 04/05/2017 to evaluate his cervicallymphadenopathy with concerns for an infectious versus neoplastic process.The patient states that he feels well overall without any other acuteconcerns at this moment. Notably the patient's platelet count was 4 earlierthis morning with an absolute neutrophil count of 0.0 esophagoscopywith biopsy of hypopharyngeal mass. The patient is currently receivingplatelet transfusions.REVIEW OF SYSTEMSA complete head-to-toe review of systems was performed and was negativeexcept for those factors mentioned HPI.PAST MEDICAL HISTORY1. Idiopathic hepatitis.2. CMV and EBV viremia.3. Idiopathic thrombocytopenic purpura.PAST SURGICALHISTORY1. Orthotopic liver transplant in 1998.2. 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 Cefepime.2. Tacrolimus.FAMILY HISTORYNo family history of coagulopathies or immunocompromise.SOCIAL HISTORYPatient denies any drug, tobacco or alcohol use.PHYSICAL EXAMINATIONPatient is afebrile, saturating well on room air.General: Patient is in no apparent distress, sitting comfortably on thepatient examination room table.Eyes: Pupils are equal, round, and reactive to light. Extraocular movementsintact. No conjunctival injection or drainage bilaterally.Ears: Pinnae are within normal limits. External auditory canals are patentbilaterally. Tympanic membranes are pearly zazueta, translucent without middleear effusions or perforations bilaterally.Nose: Dorsum projects midline. No signs of recent epistaxis or rhinorrhea.Oral Examination: Tongue protrudes midline. Uvula elevates midline. Thereis a small white ulcerative lesion on the right tip of his tongue. There huy diffuse gingivitis noted with plaque onhis teeth. Appropriate dentitionotherwise. No other intraoral masses or lesions identified. Floor of mouthis soft to palpation.Cervical: There is bilateral cervical lymphadenopathy. Most common inbilateral level 2. This lymphadenopathy is minimally tender to palpation andis not mobile on cervical range of motion. The trachea is midline. No oraloverlying erythema or induration. No signs of recent trauma.Respiratory: Patient is breathing comfortably on room air without audiblewheezing, stridor, or stertor. Patient's voice is strong without dysphoniain.Cardiac: The patient's extremities are pink and appear well perfused.REVIEW OF LABORATORY DATAA review of his CBC reveals an absolute neutrophil count of 0.0 and aplatelet count of 4. Review of PET imaging from 04/05/2017 revealedbilateral cervical lymphadenopathy most prominent in right level II with amaximum SUV of 39.5. There is also prominent lymphadenopathy noted in thebilateral supraclavicular and mediastinal regions.ASSESSMENT AND PLANMr. Beka Lares is a 22-year-old male with a history of a livertransplantation and idiopathic thrombocytopenic purpura with Nadine-Barrvirus and Cytomegalovirus viremia with diffuse cervical, supraclavicular andmediastinallymphadenopathy.RECOMMENDATIONS1. We would recommend an ultrasound-guided core needle biopsy once hisplatelet count has stabilized.2. Should a core biopsy be insufficient to provide an adequate tissue samplefor diagnosis, we would then proceed with an open excisional biopsy of 1 ofhis enlarged lymph nodes.3. The patient will continue to be transfused platelets as needed, as wellas IVIG for treatment of his idiopathic thrombocytopenic purpura.4. ENT team will continue to follow and provide recommendations as needed.This plan was discussed with senior resident, Dr. Albin Dunn, as well asattscionhealth physician, Dr. Asmita Norris.ATTENDING ATTESTATION:I have seen and examined the patient at 1000 on 04/06/17.I have personally reviewed available imaging; my impression is: DiffuseadenopathyI have reviewed the resident physician's note and agree with the findings andtreatment plan as above.Electronically Authenticated and Edited by:Asmita Norris MD On 04/06/2017 11:36 AM CDT Jp Mcginnis M.D. Asmita Norris M.D.[facility] #[id number] MT: ADMDD: 04/05/2017 06:46 PMTD: 04/06/2017 07:31 [facility]:Nick Basurto M.D.Ryan Jackson, M.D. documented in this encounter Plan of Treatment Pending Results Name Type Priority Associated Diagnoses Date /Time Methadone, urine, qualitative screen Lab RTNm 04/02/2017 10 :32 PM CDT Methadone, urine, qualitative screen Lab RTNm 04/02/2017 10 :32 PM CDT Scheduled Procedures Name Priority Associated Diagnoses Date/Ti me COLONOSCOPY Encounter for screening for colorectal cancer in high risk patient Family history of rectal cancer documented as of this encounter Procedures Procedure Name Priority Date/Time Associated Diagnosis Comments DIFFERENTIAL AUTO After X-Ray 04/09/2017 5:3 2 AM CDT TACROLIMUS LEVEL, TROUGH After X-Ray 04/09/2017 5:32 AM CDT CBC WITH AUTO DIFFERENTIAL After X-Ray 04/09/2017 5:32 AM CDT URIC ACID After X-Ray 04/09/2017 5:32 AM CDT PHOSPHORUS After X-Ray 04/09/2017 5:32 AM CDT MAGNESIUM After X-Ray 04/09/2017 5:32 AM CDT COMPREHENSIVE METABOLIC PANEL After X-Ray 04/09/2017 5:32 AM CDT DIFFERENTIAL AUTO After X-Ray 04/07/2017 10:44 PM CDT CBC WITH AUTO DIFFERENTIAL After X-Ray 04/07/2017 10:44 PM CDT BIOPSY BONE MARROW Routine 04/07/2017 2: 33 PM CDT FLUORO GUIDED NEEDLE PLACEMENT Routine 04/07/2017 2:33 PM CDT ASPIRATION BONE MARROW Routine 7 2:33 PM CDT PARVOVIRUS PCR Routine Gen Lab 04/07/2017 12:00 PM CDT CYTOMEGALOVIRUS (CMV) PCR QUALITATIVE Routine Gen Lab 04/07/2017 12:00 PM CDT MYCOBACTERIOLOGY AFB BLOOD CULTURE Routine Gen Lab 04/07/2017 12:00 PM CDT MOLD BLOOD CULTURE Routine Gen Lab 04/07/2017 12:00 PM CDT BODY FLUID AEROBIC CULTURE Routine Gen Lab 04/07/2017 11:54 AM CDT LEUKEMIA/LYMPHOMA STUDIES Routine Gen Lab 04/07/2017 11:00 AM CDT SURGICAL PATHOLOGY Routine 04/07/2017 9: 33 AM CDT TACROLIMUS LEVEL, TROUGH After X-Ray 04/07/2017 6:55 AM CDT CYTOGENETICS AND GENOMICS Routine 04/07/2017 12:00 AM CDT DIFFERENTIAL AUTO After X-Ray 04/06/2017 11:27 PM CDT CBC WITH AUTO DIFFERENTIAL After X-Ray 04/06/2017 11:27 PM CDT BASIC METABOLIC PANEL After X-Ray 04/06/2017 11:27 PM CDT BIOPSY LYMPH NODE SUPERFICIAL Routine 04/06/2017 9:08 PM CDT US GUIDED NEEDLE PLACEMENT Routine 04/06/2017 9:08 PM CDT LEUKEMIA/LYMPHOMA STUDIES Routine Gen Lab 04/06/2017 2:00 PM CDT SURGICAL PATHOLOGY 04/06/2017 8: 56 AM CDT DIFFERENTIAL AUTO After X-Ray 04/06/2017 12:53 AM CDT CBC WITH AUTO DIFFERENTIAL After X-Ray 04/06/2017 12:53 AM CDT HIV-1 RNA, QUANTITATIVE, PCR After X-Ray 04/06/2017 12:53 AM CDT PROTIME-INR After X-Ray 04/06/2017 12:53 AM CDT COMPREHENSIVE METABOLIC PANEL After X-Ray 04/06/2017 12:53 AM CDT TRANSFUSION EVENT Routine 04/05/2017 9:0 3 PM CDT PET/CT FDG SKULL TO THIGH Routine 04/05/2017 6:03 PM CDT PET/CT FDG SKULL TO THIGH Routine 04/05/2017 6:03 PM CDT IGA Routine Gen Lab 04/05/2017 5:57 PM CDT DIFFERENTIAL AUTO Routine Gen Lab 04/05/2017 5:5 6 PM CDT CBC WITH AUTO DIFFERENTIAL Routine Gen Lab 04/05/2017 5:56 PM CDT IGA Routine Gen Lab 04/05/2017 5:56 PM CDT MISCELLANEOUS TEST SENDOUT CHEMISTRY Routine Gen Lab 04/05/2017 5:50 PM CDT ANTIBODY IDENTIFICATION STAT 04/05/20 17 2:08 PM CDT NADINE DE LA CRUZ VIRUS PCR QUALITATIVE Routine Gen Lab 04/05/2017 12:00 PM CDT NADINE DE LA CRUZ VIRUS PCR, QUANTITATIVE Routine Gen Lab 04/05/2017 12:00 PM CDT TYPE AND SCREEN STAT 04/05/2017 11:59 AM CDT CBC WITH AUTO DIFFERENTIAL After X-Ray 04/05/2017 4:56 AM CDT MANUAL DIFFERENTIAL After X-Ray 04/05/2017 4 :56 AM CDT TYPE AND SCREEN After X-Ray 04/05/2017 4:56 AM CDT BASIC METABOLIC PANEL After X-Ray 04/05/2017 4:56 AM CDT HISTOPLASMA ANTIGEN RTCo 04/04/2017 6 :28 PM CDT TOXOPLASMA ANTIBODIES IGG AND IGM Routine Gen Lab 04/04/2017 6:03 PM CDT HIV 1/2 ANTIBODY PLUS P24 ANTIGEN Routine Gen Lab 04/04/2017 6:03 PM CDT CRYPTOCOCCUS ANTIGEN RTCo 04/04/2017 6:03 PM CDT ASPERGILLUS GALACTOMANNAN ANTIGEN RTCo 04/04/2017 6:03 PM CDT BLASTOMYCES ANTIBODIES Routine Gen Lab 7 6:03 PM CDT BARTONELLA ANTIBODY PANEL Routine Gen Lab 04/04/2017 6:03 PM CDT BLOOD CULTURE RTCo 04/04/2017 6:03 PM CDT MYCOBACTERIOLOGY AFB BLOOD CULTURE RTCo 04/04/2017 6:03 PM CDT MOLD BLOOD CULTURE RTCo 04/04/2017 6: 03 PM CDT IRON PROFILE W/ IBC After X-Ray 04/04/2017 6 :08 AM CDT CBC WITH AUTO DIFFERENTIAL After X-Ray 04/04/2017 6:08 AM CDT MANUAL DIFFERENTIAL After X-Ray 04/04/2017 6 :08 AM CDT RETICULOCYTES After X-Ray 04/04/2017 6:08 AM CDT HAPTOGLOBIN After X-Ray 04/04/2017 6:08 AM CDT FERRITIN After X-Ray 04/04/2017 6:[address] SOFT TISSUE NECK W CONTRAST Routine 04/03/2017 2:15 PM CDT NADINE-DE LA CRUZ VIRUS ACUTE INFECTION IGM After X-Ray 04/03/2017 6:35 AM CDT CMV DNA QN, PCR After X-Ray 04/03/2017 6:35 AM CDT EXTRA SLIDE PREPARATION Routine Gen Lab 04/03/20 17 6:35 AM CDT CBC WITH AUTO DIFFERENTIAL After X-Ray 04/03/2017 6:35 AM CDT TACROLIMUS LEVEL, RANDOM After X-Ray 04/03/2017 6:35 AM CDT HEPATITIS PANEL, ACUTE After X-Ray 7 6:35 AM CDT MANUAL DIFFERENTIAL After X-Ray 04/03/2017 6 :35 AM CDT URIC ACID After X-Ray 04/03/2017 6:35 AM CDT LACTATE DEHYDROGENASE After X-Ray 04/03/2017 6:35 AM CDT HEPATIC FUNCTION PANEL After X-Ray 7 6:35 AM CDT LIPID PANEL After X-Ray 04/03/2017 6:35 AM CDT INFLUENZA A/B PCR RTNm 04/03/2017 1:4 3 AM CDT METHADONE, URINE, QUALITATIVE SCREEN RTNm 04/02/2017 10:32 PM CDT METHADONE, URINE, QUALITATIVE SCREEN RTNm 04/02/2017 10:32 PM CDT BLOOD CULTURE RTNm 04/02/2017 10:32 PM CDT BLOOD CULTURE RTNm 04/02/2017 10:32 PM CDT BLOOD POTASSIUM, ARTERIAL STAT 04/02/2017 7:21 PM CDT CBC WITH AUTO DIFFERENTIAL STAT 04/02/2017 7:21 PM CDT MANUAL DIFFERENTIAL STAT 04/02/2017 7 :21 PM CDT BASIC METABOLIC PANEL STAT 04/02/2017 7:21 PM CDT DISCHARGE LABORATORY CUMULATIVE REPORT 04/02/2017 documented in this encounter Results * Tacrolimus level trough (04/09/2017 5:32 AM CDT) Tacrolimus, trough 8.0 ng/mL [facility] Comment: Interpretive Data The therapeutic range for tacrolimus can vary by transplant organ type and sample timing but a trough range of 5 - 15 ng/mL is typical. Testing performed by liquid chromatography-tandem mass spectrometry (LC- MS/MS).This test was developed using an analyte specific reagent. Its performance characteristics were determined by the [facility] in a manner consistent with CLIA requirements. This test has not been cleared or approved by the U.S. Food and Drug Administration. Current interpretive data was last revised on 2016. Blood specimen (specimen) 04/09/2017 5:32 AM CDT 04/09/2017 6:32 AM CDT Nury De Oliveira MD LAB BLOOD ORDERABLES Chata cuadra Result [facility] [place] [address] * (ABNORMAL) Differential, auto (04/09/2017 5:32 AM CDT) Pathologist [facility] Neutrophil pct 2.8 % [facility] Imm gran pct 0.6 % [facility] Lymphocyte pct 60.6 % [facility] Monocyte pct 26.9 % [facility] Eosinophil pct 8.0 % [facility] Basophil pct 1.1 % [facility] Neutrophil abs 0.15(C) 1.70 - 6.50 K/cumm [facility] Comment:Critical result call ed to and read back by JAZMINE CHACON RN on 04 09 2017 at 0720 to [employer]. Imm gran abs 0.03 0.00 - 0.10 K/cumm [facility] Lymphocyte abs 3.20 0.80 - 3.30 K/cumm [facility] Monocyte abs 1.42(H) 0.20 - 0.80 K/cumm [facility] Eosinophil abs 0.42 0.00 - 0.50 K/cumm [facility] Basophil abs 0.06 0.00 - 0.10 K/cumm [facility] Blood specimen (specimen) 04/09/2017 5:32 AM CDT 04/09/2017 6:32 AM CDT Nury De Oliveira MD LAB BLOOD ORDERABLES Chata cuadra Result [facility] Department [place] [address] * (ABNORMAL) Comprehensive metabolic panel (04/09/2017 5:32 AM CDT) [facility] Sodium 137 135 - 145 mmol/L [facility] Potassium, pl 4.7 3.3 - 4.9 mmol/L [facility] CO2 26 22 - 32 mmol/L [facility] BUN 15 8 - 25 mg/dL [facility] Glucose 88 70 - 199 mg/dL [facility] Creatinine 0.83 0.80 - 1.30 mg/dL [facility] Calcium 8.7 8.5 - 10.3 mg/dL [facility] Chloride 103 97 - 110 mmol/L [facility] Albumin 3.1(L) 3.5 - 5.0 g/dL [facility] AST 28 10 - 50 Units/L [facility] ALT 24 7 - 55 Units/L [facility] Alk phos 113 40 - 130 Units/L [facility] Bilirubin, total 0.6 0.1 - 1.2 mg/dL [facility] Protein, pl 7.9 6.5 - 8.5 g/dL [facility] Anion gap 8 2 - 15 mmol/L [facility] Blood specimen (specimen) 04/09/2017 5:32 AM CDT 04/09/2017 6:32 AM CDT Nury De Oliveira MD LAB BLOOD ORDERABLES Chata l Result Performing Organization Address City/[facility]/ZIP Co de Phone Number [facility] Department [place] [address] * Uric acid (04/09/2017 5:32 AM CDT) Uric acid 4.2 3.0 - 8.0 mg/dL [facility] Blood specimen (specimen) 04/09/2017 5:32 AM CDT 04/09/2017 6:32 AM CDT Nury De Oliveira MD LAB BLOOD ORDERABLES Chata l Result [facility] [place] [address] * Magnesium (04/09/2017 5:32 AM CDT) Magnesium 1.4 1.4 - 2.5 mg/dL [facility] Blood specimen (specimen) 04/09/2017 5:32 AM CDT 04/09/2017 6:32 AM CDT Nury De Oliveira MD LAB BLOOD ORDERABLES Chata l Result [facility] [place] [address] * Phosphorus (04/09/2017 5:32 AM CDT) Pathologist [facility] Phosphorus, pl 3.7 2.3 - 4.5 mg/dL [facility] Blood specimen (specimen) 04/09/2017 5:32 AM CDT 04/09/2017 6:32 AM CDT Nury De Oliveira MD LAB BLOOD ORDERABLES Chata l Result Performing Organization Address [facility] Co de Phone Number [facility] [place] [address] * (ABNORMAL) CBC with auto differential (04/09/2017 5:32 AM CDT) [facility] WBC 5.28 3.80 - 9.90 K/cumm [facility] RBC 3.89(L) 4.30 - 5.80 M/cumm [facility] Hgb 12.5(L) 13.0 - 17.5 g/dL [facility] Hct 35.1(L) 38.9 - 50.3 % [facility] MCV 90.2 81.3 - 96.4 fL [facility] MCH 32.1 27.1 - 33.3 pg [facility] MCHC 35.6 32.3 - 35.7 g/dL [facility] RDW CV 12.3 11.1 - 14.9 % [facility] RDW SD 40.4 35.7 - 48.1 fL [facility] Plt 346 150 - 400 K/cumm [facility] MPV 11.6 9.1 - 12.3 fL [facility] NRBC 0.0 0.0 - 0.2 % [facility] NRBC abs 0.00 0.00 - 0.01 K/cumm [facility] Blood specimen (specimen) 04/09/2017 5:32 AM CDT 04/09/2017 6:32 AM CDT Nury De Oliveira MD LAB BLOOD ORDERABLES Edit ed Result - Final Performing Organization Address [facility] de Phone Number [facility] Department [place] [address] * (ABNORMAL) Differential, auto (04/07/2017 10:44 PM CDT) Neutrophil pct 2.9 % [facility] Comment:Consistent with prev ious result Imm gran pct 0.0 % [facility] Lymphocyte pct 59.8 % [facility] Monocyte pct 28.8 % [facility] Eosinophil pct 7.2 % [facility] Basophil pct 1.3 % [facility] Neutrophil abs 0.13(C) 1.70 - 6.50 K/cumm [facility] Comment:Critical result call ed to and read back by GENEVIEVE GÓMEZ on 04 08 2017 at 0051 to Leann Rodriguez. Imm gran abs 0.00 0.00 - 0.10 K/cumm [facility] Lymphocyte abs 2.74 0.80 - 3.30 K/cumm [facility] Monocyte abs 1.32(H) 0.20 - 0.80 K/cumm [facility] Eosinophil abs 0.33 0.00 - 0.50 K/cumm [facility] Basophil abs 0.06 0.00 - 0.10 K/cumm [facility] Blood specimen (specimen) 04/07/2017 10:44 PM CDT 04/07/2017 11:56 PM CDT us Nury De Oliveira MD LAB BLOOD ORDERABLES Chata l Result Performing Organization Address [facility]/ZIP Co de Phone Number [facility] Department [place] [address] * (ABNORMAL) CBC with auto differential (04/07/2017 10:44 PM CDT) [facility] Signature WBC 4.58 3.80 - 9.90 K/cumm [facility] RBC 3.60(L) 4.30 - 5.80 M/cumm [facility] Hgb 11.5(L) 13.0 - 17.5 g/dL [facility] Hct 32.7(L) 38.9 - 50.3 % [facility] MCV 90.8 81.3 - 96.4 fL [facility] MCH 31.9 27.1 - 33.3 pg [facility] MCHC 35.2 32.3 - 35.7 g/dL [facility] RDW CV 12.6 11.1 - 14.9 % [facility] RDW SD 42.0 35.7 - 48.1 fL [facility] Plt 297 150 - 400 K/cumm [facility] MPV 10.6 9.1 - 12.3 fL [facility] NRBC 0.0 0.0 - 0.2 % [facility] NRBC abs 0.00 0.00 - 0.01 K/cumm [facility] Blood specimen (specimen) 04/07/2017 10:44 PM CDT 04/07/2017 11:56 PM CDT Nury De Oliveira MD LAB BLOOD ORDERABLES Edit ed Result - Final [facility] Department [place] [address] * Aspiration Bone Marrow (04/07/2017 2:33 PM CDT) Anatomical Region Laterality Modality Body N/A X-Ray Angiograph y 04/07/2017 2:33 PM CDT Narrative 04/07/2017 2:33 PM CDT RUTH ANN LARSON M.D. ASMITA FENTON M.D. FINAL REPORT The radiology attending physician has personally reviewed this study, and has reviewed and/or edited this written report and agrees with it. ACC# ??Date Time ??Exam [id number] Apr 07, 2017 09:33:00 [id number] Bone Marrow Bx L [id number] Apr 07, 2017 09:33:00 [id number] Fluoro Gd for Ndl (DAWSON) [id number] Apr 07, 2017 09:33:00 [id number] Bone Marrow Aspiration EXAMINATION: ?Left iliac bone marrow biopsy and aspiration under fluoroscopic guidance HISTORY: ?? 22-year-old man with prior liver transplant with thrombocytopenia and lymphadenopathy. Bone marrow biopsy and aspiration is requested for diagnosis. ATTENDING PRESENCE: ?? Dr. Larson, the attending radiologist, was present from the beginning to the end of the procedure. Drs. Fenton and Diana also participated in this examination. SEDATION: ?? Conscious sedation was administered under the attending physician's direction and continuous monitoring by a trained nurse specialist who was independent from those actually performing the procedure. ??Total monitored sedation time was 22 minutes. ??During the course of the procedure, the patient received Fentanyl 175 mcg and Versed 2.5 mg IV. ?? TECHNIQUE: ??The risks, benefits and alternatives were discussed and informed consent was obtained. ??Prior to beginning the procedure, [place] Protocol was performed to confirm the patient? ? s identity and the planned procedure. ? Sterile barriers used during the procedure included cap, mask, hand hygiene, sterile gloves, sterile gowns and sterile drape. ??Chloraprep was used for cutaneous antisepsis. The patient was placed prone on the fluoroscopy table. ??The biopsy site was localized with fluoroscopic guidance. ??10 mL of a 1:1 mixture of 0.25% bupivacaine and 1% lidocaine was injected for subcutaneous and periosteal anesthesia. ??An 11 gauge OnControl needle was inserted into the left iliac bone. ??Appropriate needle position was confirmed with fluoroscopy. ??26 mL of bone marrow aspirate was obtained for hematopathology and microbiology. ??A bone marrow core specimen of 2 cm in length was obtained. ??The needle was removed and the skin was cleansed with hydrogen peroxide. ??Exofin skin glue was placed at the skin entry site. ?? ESTIMATED BLOOD LOSS: ?? Minimal CONDITION: ?? Stable condition. There were no complications of the procedure. DISCHARGED TO: ?? Patient care division FINDINGS: ?? Fluoroscopic images demonstrate appropriate needle positioning within the left iliac wing. IMPRESSION: ?? 1. Left iliac bone marrow biopsy and aspiration under fluoroscopic guidance. ??The bone marrow aspirate was submitted to hematopathology and microbiology, and the bone marrow core biopsy sample to surgical pathology. Requested By: TYRA WALKER Dictated By: ?? ASMITA FENTON M.D. ??on Apr ??9:54A This document has been electronically signed by: RUTH ANN LARSON M.D. on Apr?2016 12:03P [id number] Procedure Note Miscellaneous, Not In File / Provider, MD Dl - 04/07/2017 RUTH ANN LARSON M.D. ASMITA FENTON M.D. FINAL REPORT The radiology attending physician has personally reviewed this study, and has reviewed and/or edited this written report and agrees with it. ACC# Date Time Exam [id number] Apr 07, 2017 09:33:00 [id number] Bone Marrow Bx L [id number] Apr 07, 2017 09:33:00 [id number] Fluoro Gd for Ndl (MSK) [id number] Apr 07, 2017 09:33:00 [id number] Bone Marrow Aspiration EXAMINATION: Left iliac bone marrow biopsy and aspiration under fluoroscopic guidance HISTORY: 22-year-old man with prior liver transplant with thrombocytopenia and lymphadenopathy. Bone marrow biopsy and aspiration is requested for diagnosis. ATTENDING PRESENCE: Dr. Larson, the attending radiologist, was present from the beginning to the end of the procedure. Drs. Fenton and Diana also participated in this examination. SEDATION: Conscious sedation was administered under the attending physician's direction and continuous monitoring by a trained nurse specialist who was independent from those actually performing the procedure. Total monitored sedation time was 22 minutes. During the course of the procedure, the patient received Fentanyl 175 mcg and Versed 2.5 mg IV. TECHNIQUE: The risks, benefits and alternatives were discussed and informed consent was obtained. Prior to beginning the procedure, [place] Protocol was performed to confirm the patient? ? s identity and the planned procedure. Sterile barriers used during the procedure included cap, mask, hand hygiene, sterile gloves, sterile gowns and sterile drape. Chloraprep was used for cutaneous antisepsis. The patient was placed prone on the fluoroscopy table. The biopsy site was localized with fluoroscopic guidance. 10 mL of a 1:1 mixture of 0.25% bupivacaine and 1% lidocaine was injected for subcutaneous and periosteal anesthesia. An 11 gauge OnControl needle was inserted into the left iliac bone. Appropriate needle position was confirmed with fluoroscopy. 26 mL of bone marrow aspirate was obtained for hematopathology and microbiology. A bone marrow core specimen of 2 cm in length was obtained. The needle was removed and the skin was cleansed with hydrogen peroxide. Exofin skin glue was placed at the skin entry site. ESTIMATED BLOOD LOSS: Minimal CONDITION: Stable condition. There were no complications of the procedure. DISCHARGED TO: Patient care division FINDINGS: Fluoroscopic images demonstrate appropriate needle positioning within the left iliac wing. IMPRESSION: 1. Left iliac bone marrow biopsy and aspiration under fluoroscopic guidance. The bone marrow aspirate was submitted to hematopathology and microbiology, and the bone marrow core biopsy sample to surgical pathology. Requested By: TYRA WALKER Dictated By: ASMITA FENTON M.D. on Apr 07 2017 9:54A This document has been electronically signed by: RUTH ANN LARSON M.D. on Apr 07 2017 12:03P [id number] us Not In File Miscellaneous IMG IR PROCEDURES Chata l Result * Fluoro Guided Needle Placement (04/07/2017 2:33 PM CDT) Anatomical Region Laterality Modality Body N/A Radiographic Shilpi ging 04/07/2017 2:33 PM CDT Narrative 04/07/2017 2:33 PM CDT Stephon CHAHAL M.D. FINAL REPORT The radiology attending physician has personally reviewed this study, and has reviewed and/or edited this written report and agrees with it. ACC# ??Date Time ??Exam [id number] Apr 07, 2017 09:33:00 [id number] Bone Marrow Bx L [id number] Apr 07, 2017 09:33:00 [id number] Fluoro Gd for Ndl (MSK) [id number] Apr 07, 2017 09:33:00 24206 Bone Marrow Aspiration EXAMINATION: ?Left iliac bone marrow biopsy and aspiration under fluoroscopic guidance HISTORY: ?? 22-year-old man with prior liver transplant with thrombocytopenia and lymphadenopathy. Bone marrow biopsy and aspiration is requested for diagnosis. ATTENDING PRESENCE: ?? Dr. Larson, the attending radiologist, was present from the beginning to the end of the procedure. Drs. Fenton and Diana also participated in this examination. SEDATION: ?? Conscious sedation was administered under the attending physician's direction and continuous monitoring by a trained nurse specialist who was independent from those actually performing the procedure. ??Total monitored sedation time was 22 minutes. ??During the course of the procedure, the patient received Fentanyl 175 mcg and Versed 2.5 mg IV. ?? TECHNIQUE: ??The risks, benefits and alternatives were discussed and informed consent was obtained. ??Prior to beginning the procedure, [place] Protocol was performed to confirm the patient? ? s identity and the planned procedure. ? Sterile barriers used during the procedure included cap, mask, hand hygiene, sterile gloves, sterile gowns and sterile drape. ??Chloraprep was used for cutaneous antisepsis. The patient was placed prone on the fluoroscopy table. ??The biopsy site was localized with fluoroscopic guidance. ??10 mL of a 1:1 mixture of 0.25% bupivacaine and 1% lidocaine was injected for subcutaneous and periosteal anesthesia. ??An 11 gauge OnControl needle was inserted into the left iliac bone. ??Appropriate needle position was confirmed with fluoroscopy. ??26 mL of bone marrow aspirate was obtained for hematopathology and microbiology. ??A bone marrow core specimen of 2 cm in length was obtained. ??The needle was removed and the skin was cleansed with hydrogen peroxide. ??Exofin skin glue was placed at the skin entry site. ?? ESTIMATED BLOOD LOSS: ?? Minimal CONDITION: ?? Stable condition. There were no complications of the procedure. DISCHARGED TO: ?? Patient care division FINDINGS: ?? Fluoroscopic images demonstrate appropriate needle positioning within the left iliac wing. IMPRESSION: ?? 1. Left iliac bone marrow biopsy and aspiration under fluoroscopic guidance. ??The bone marrow aspirate was submitted to hematopathology and microbiology, and the bone marrow core biopsy sample to surgical pathology. Requested By: TYRA WALKER [facility] Dictated By: ?? ASMITA FENTON M.D. ??on Apr ??2016 ??9:54A This document has been electronically signed by: RUTH ANN LARSON M.D. on Apr ??2016 12:03P [id number] Procedure Note Miscellaneous, Not In File - 04/07/2017 RUTH ANN LARSON M.D. ASMITA FENTON M.D. FINAL REPORT The radiology attending physician has personally reviewed this study, and has reviewed and/or edited this written report and agrees with it. ACC# Date Time Exam [id number] Apr 07, 2017 09:33:00 [id number] Bone Marrow Bx L [id number] Apr 07, 2017 09:33:00 [id number] Fluoro Gd for Ndl (MSK) [id number] Apr 07, 2017 09:33:00 13111 Bone Marrow Aspiration EXAMINATION: Left iliac bone marrow biopsy and aspiration under fluoroscopic guidance HISTORY: 22-year-old man with prior liver transplant with thrombocytopenia and lymphadenopathy. Bone marrow biopsy and aspiration is requested for diagnosis. ATTENDING PRESENCE: Dr. Larson, the attending radiologist, was present from the beginning to the end of the procedure. Drs. Fenton and Diana also participated in this examination. SEDATION: Conscious sedation was administered under the attending physician's direction and continuous monitoring by a trained nurse specialist who was independent from those actually performing the procedure. Total monitored sedation time was 22 minutes. During the course of the procedure, the patient received Fentanyl 175 mcg and Versed 2.5 mg IV. TECHNIQUE: The risks, benefits and alternatives were discussed and informed consent was obtained. Prior to beginning the procedure, [place] Protocol was performed to confirm the patient? ? s identity and the planned procedure. Sterile barriers used during the procedure included cap, mask, hand hygiene, sterile gloves, sterile gowns and sterile drape. Chloraprep was used for cutaneous antisepsis. The patient was placed prone on the fluoroscopy table. The biopsy site was localized with fluoroscopic guidance. 10 mL of a 1:1 mixture of 0.25% bupivacaine and 1% lidocaine was injected for subcutaneous and periosteal anesthesia. An 11 gauge OnControl needle was inserted into the left iliac bone. Appropriate needle position was confirmed with fluoroscopy. 26 mL of bone marrow aspirate was obtained for hematopathology and microbiology. A bone marrow core specimen of 2 cm in length was obtained. The needle was removed and the skin was cleansed with hydrogen peroxide. Exofin skin glue was placed at the skin entry site. ESTIMATED BLOOD LOSS: Minimal CONDITION: Stable condition. There were no complications of the procedure. DISCHARGED TO: Patient care division FINDINGS: Fluoroscopic images demonstrate appropriate needle positioning within the left iliac wing. IMPRESSION: 1. Left iliac bone marrow biopsy and aspiration under fluoroscopic guidance. The bone marrow aspirate was submitted to hematopathology and microbiology, and the bone marrow core biopsy sample to surgical pathology. Requested By: TYRA WALKER ACNP Dictated By: ASMITA FENTON M.D. on Apr 07 2017 9:54A This document has been electronically signed by: RUTH ANN LARSON M.D. on Apr 07 2017 12:03P [id number] us Not In File Miscellaneous IMG FLUOROSCOPY PROCED URES Final Result * Biopsy Bone Marrow (04/07/2017 2:33 PM CDT) Anatomical Region Laterality Modality Body N/A X-Ray Angiograph y 04/07/2017 2:33 PM CDT Narrative 04/07/2017 2:33 PM CDT Stephon CHAHAL M.D. FINAL REPORT The radiology attending physician has personally reviewed this study, and has reviewed and/or edited this written report and agrees with it. ACC# ??Date Time ??Exam [id number] Apr 07, 2017 09:33:00 [id number] Bone Marrow Bx L [id number] Apr 07, 2017 09:33:00 [id number] Fluoro Gd for Ndl (MSK) [id number] Apr 07, 2017 09:33:00 [id number] Bone Marrow Aspiration EXAMINATION: ?Left iliac bone marrow biopsy and aspiration under fluoroscopic guidance HISTORY: ?? 22-year-old man with prior liver transplant with thrombocytopenia and lymphadenopathy. Bone marrow biopsy and aspiration is requested for diagnosis. ATTENDING PRESENCE: ?? Dr. Larson, the attending radiologist, was present from the beginning to the end of the procedure. Drs. Fenton and Diana also participated in this examination. SEDATION: ?? Conscious sedation was administered under the attending physician's direction and continuous monitoring by a trained nurse specialist who was independent from those actually performing the procedure. ??Total monitored sedation time was 22 minutes. ??During the course of the procedure, the patient received Fentanyl 175 mcg and Versed 2.5 mg IV. ?? TECHNIQUE: ??The risks, benefits and alternatives were discussed and informed consent was obtained. ??Prior to beginning the procedure, [place] Protocol was performed to confirm the patient? ? s identity and the planned procedure. ? Sterile barriers used during the procedure included cap, mask, hand hygiene, sterile gloves, sterile gowns and sterile drape. ??Chloraprep was used for cutaneous antisepsis. The patient was placed prone on the fluoroscopy table. ??The biopsy site was localized with fluoroscopic guidance. ??10 mL of a 1:1 mixture of 0.25% bupivacaine and 1% lidocaine was injected for subcutaneous and periosteal anesthesia. ??An 11 gauge OnControl needle was inserted into the left iliac bone. ??Appropriate needle position was confirmed with fluoroscopy. ??26 mL of bone marrow aspirate was obtained for hematopathology and microbiology. ??A bone marrow core specimen of 2 cm in length was obtained. ??The needle was removed and the skin was cleansed with hydrogen peroxide. ??Exofin skin glue was placed at the skin entry site. ?? ESTIMATED BLOOD LOSS: ?? Minimal CONDITION: ?? Stable condition. There were no complications of the procedure. DISCHARGED TO: ?? Patient care division FINDINGS: ?? Fluoroscopic images demonstrate appropriate needle positioning within the left iliac wing. IMPRESSION: ?? 1. Left iliac bone marrow biopsy and aspiration under fluoroscopic guidance. ??The bone marrow aspirate was submitted to hematopathology and microbiology, and the bone marrow core biopsy sample to surgical pathology. Requested By: TYRA WALKER [facility] Dictated By: ?? ASMITA FENTON M.D. ??on Apr ??2016 ??9:54A This document has been electronically signed by: RUTH ANN LARSON M.D. on Apr ??2016 12:03P [id number] Procedure Note Miscellaneous, Not In File - 04/07/2017 RUTH ANN LARSON M.D. ASMITA FENTON M.D. FINAL REPORT The radiology attending physician has personally reviewed this study, and has reviewed and/or edited this written report and agrees with it. ACC# Date Time Exam [id number] Apr 07, 2017 09:33:00 [id number] Bone Marrow Bx L [id number] Apr 07, 2017 09:33:00 [id number] Fluoro Gd for Ndl (MSK) [id number] Apr 07, 2017 09:33:00 56746 Bone Marrow Aspiration EXAMINATION: Left iliac bone marrow biopsy and aspiration under fluoroscopic guidance HISTORY: 22-year-old man with prior liver transplant with thrombocytopenia and lymphadenopathy. Bone marrow biopsy and aspiration is requested for diagnosis. ATTENDING PRESENCE: Dr. Larson, the attending radiologist, was present from the beginning to the end of the procedure. Drs. Fenton and Diana also participated in this examination. SEDATION: Conscious sedation was administered under the attending physician's direction and continuous monitoring by a trained nurse specialist who was independent from those actually performing the procedure. Total monitored sedation time was 22 minutes. During the course of the procedure, the patient received Fentanyl 175 mcg and Versed 2.5 mg IV. TECHNIQUE: The risks, benefits and alternatives were discussed and informed consent was obtained. Prior to beginning the procedure, [place] Protocol was performed to confirm the patient? ? s identity and the planned procedure. Sterile barriers used during the procedure included cap, mask, hand hygiene, sterile gloves, sterile gowns and sterile drape. Chloraprep was used for cutaneous antisepsis. The patient was placed prone on the fluoroscopy table. The biopsy site was localized with fluoroscopic guidance. 10 mL of a 1:1 mixture of 0.25% bupivacaine and 1% lidocaine was injected for subcutaneous and periosteal anesthesia. An 11 gauge OnControl needle was inserted into the left iliac bone. Appropriate needle position was confirmed with fluoroscopy. 26 mL of bone marrow aspirate was obtained for hematopathology and microbiology. A bone marrow core specimen of 2 cm in length was obtained. The needle was removed and the skin was cleansed with hydrogen peroxide. Exofin skin glue was placed at the skin entry site. ESTIMATED BLOOD LOSS: Minimal CONDITION: Stable condition. There were no complications of the procedure. DISCHARGED TO: Patient care division FINDINGS: Fluoroscopic images demonstrate appropriate needle positioning within the left iliac wing. IMPRESSION: 1. Left iliac bone marrow biopsy and aspiration under fluoroscopic guidance. The bone marrow aspirate was submitted to hematopathology and microbiology, and the bone marrow core biopsy sample to surgical pathology. Requested By: TYRA WALKER ACNP Dictated By: ASMITA FENTON M.D. on Apr 07 2017 9:54A This document has been electronically signed by: RUTH ANN LARSON M.D. on Apr 07 2017 12:03P [id number] us Not In File Miscellaneous IMG IR PROCEDURES Chata l Result * Mycobacteriology (AFB) blood culture (04/07/2017 12:00 PM CDT) Report Final Report: No growth of acid-fast bacilli [facility] Bone marrow 04/07/2017 12:0 0 PM CDT 04/07/2017 12:02 PM CDT Narrative [facility] - 04/09/2017 7:23 AM CDT Diogenes Carrera MD LAB MICROBIOLOGY - GENER AL ORDERABLES Final Result Performing Organization Address City/[facility] Co de Phone Number [facility] Department [place] [address] * Cytomegalovirus (CMV) PCR, qualitative (04/07/2017 12:00 PM CDT) Report Final Report: Negative [facility] Bone marrow (Bone marrow) 04/07/2017 12:00 PM CDT 04/07/2017 12:33 PM CDT Narrative [facility] - 04/07/2017 12:34 PM CDT This assay employs the FDA-cleared Qiagen/[employer] real-time CMV PCR test kit. The PCR primers amplify a portion of the major immediate early gene of human cytomegalovirus. The assay does not amplify any of the other human herpes viruses or human DNA. ??The lower limit of detection of the assay is 100 IU/mL. This test kit is FDA cleared for CMV detection in plasma. The FDA-modified use of this test for CMV detection in other specimen types was validated and its performance characteristics determined by [facility]. It has not been cleared or approved by the U.S. Food and Drug Administration. Diogenes Carrera MD LAB MICROBIOLOGY - GENER AL ORDERABLES Final Result Performing Organization Address City/[facility]/ZIP Co de Phone Number [facility] [place] [address] * Parvovirus PCR (04/07/2017 12:00 PM CDT) Report Amended Report - Complete: Positive Results phoned to and read back by: Dr. Patel ([phone]) on 04/08/2017 13:36:57 [facility] Bone marrow (Bone marrow) 04/07/2017 12:00 PM CDT 04/07/2017 12:33 PM CDT Narrative [facility] - 04/08/2017 11:40 AM CDT This test was developed and its performance characteristics determined by [facility]. ??It has not been cleared or approved by the U.S. Food and Drug Administration. Current Interpretive Data was last revised on 2014. Diogenes Carrera MD LAB MICROBIOLOGY - GENER AL ORDERABLES Edited Result - Final [facility] Department [place] [address] * Filamentous fungus culture, blood (04/07/2017 12:00 PM CDT) Report Final Report: No growth of fungus [facility] Bone marrow 04/07/2017 12:0 0 PM CDT 04/07/2017 12:02 PM CDT Narrative [facility] - 04/08/2017 10:37 AM CDT Diogenes Carrera MD LAB MICROBIOLOGY - GENER AL ORDERABLES Final Result [facility] [place] [address] * Body fluid aerobic culture (04/07/2017 11:54 AM CDT) Report Final Report: No growth [facility] Bone marrow (Bone marrow) 04/07/2017 11:54 AM CDT 04/07/2017 12:00 PM CDT [facility]ative [facility] - 04/08/2017 8:17 AM CDT Specimens submitted from normally sterile body sites will have all bacterial morphotypes identified. ??Specimens that contain grossly mixed ellie and/or are from body sites that are not normally sterile will be examined for Staphylococcus aureus, Pseudomonas aeruginosa, beta-hemolytic strep, vancomycin-resistant Enterococcus and fungus. ??If any of these are isolated, the organism will be reported. Current interpretive data was last revised on 2013. Diogenes Carrera MD LAB MICROBIOLOGY - GENER AL ORDERABLES Final Result Performing Organization Address City/[facility]/ZIP Co de Phone Number [facility] [place] [address] * Leukemia/lymphoma studies (04/07/2017 11:00 AM CDT) CD 3 Test Completed [facility] CD 5 Test Completed [facility] CD 10 Test Completed [facility] Metamyelocyte , Bone Marrow Test Completed [facility] CD 14 Test Completed [facility] CD 19 Test Completed [facility] CD 20 Test Completed [facility] CD 23 Test Completed [facility] CD 33 Test Completed [facility] CD 34 Test Completed [facility] CD 45 Test Completed [facility] CD 64 Test Completed [facility] CD 117 Test Completed [facility] CD 123 Test [facility] [place] [facility] [place] Stain Test Completed [facility] BJ Leukemia/Lymp josé manuel Result See separate Surgical Pathology report. [facility] Bone marrow 04/07/2017 11:0 0 AM CDT 04/07/2017 11:29 AM CDT Diogenes Carrera MD LAB BLOOD ORDERABLES Fin al Result Performing Organization Address [facility]/ZIP Co de Phone Number [facility] Department [place] [address] * Surgical pathology (04/07/2017 9:33 AM CDT) 04/07/2017 9:33 AM CDT 04/07/2017 11:52 AM CDT [facility] SYSTEM - 04/09/2017 5:23 PM CDT [facility] Yulisa Garcia Laboratory [place] [address] SURGICAL PATHOLOGY REPORT FINAL Patient Name: BEKA LARES ? Address: [address] [place] [address] ??Service: ??Medical ??[place], [place] ??[address] ??Location: ??[facility] 0145 Taken: 04/07/2017 Gender: M ?? Received: 04/07/2017 : 1995 (Age: 22) ??Hospital #: [id number] Accessioned: 04/07/2017 ?Patient Type: ??[facility] Inpatient Reported: 04/09/2017 ? Physician(s): LAURA Coe M.D. ? Diagnosis: 646Bone marrow, left posterior iliac crest, aspirate and core biopsy: ?? - ??Normocellular bone marrow with maturing trilineage hematopoiesis, secondary lymphoid follicle and rare EBV positive cells ?? - ??See comment ?? kfa/04/08/2017 09:40 By this signature, I attest that the above diagnosis is based upon my personal examination of the slides(and/or other material indicated in the diagnosis). ?? Iliana Cisneros M.D., Ph.D. ??Report Electronically Reviewed and Signed Out By ??Iliana Cisneros M.D., Ph.D. 04/09/2017 17:21:21 Diagnosis Comment Microscopic examination reveals presence of lymphoid follicle with secondary germinal center formation, consistent with reactive lymphoid follicle. Rare EBV-positive cells are scattered throughout the biopsy, and the clinical significance of this finding is uncertain. Definitive diagnostic features of lymphoproliferative disorder are not seen in this biopsy. Correlation with concurrent lymph node biopsy and cytogenetic findings is recommended for full evaluation. Microscopic Description and Comment: Please see attached synoptic report for more information about the peripheral blood, bone marrow aspirate and bone marrow core biopsy. Leder stain is used to assess the bone marrow core biopsy. Flow cytometric analysis shows 42% events in the lymphocytic gait, 25% of which are positive for CD19 and CD20 (B lymphocytes). The B lymphocytes are polytypic for kappa and lambda light chains with kappa to lambda ratio of 1.5. ??The B lymphocytes are negative for CD5, CD10 and CD23. 1% events are identified in the past gate, with subset of this population positive for CD34 and CD117. 17% events are identified in the monocytic gate, which are predominantly positive for CD14, CD64 and CD11b. Immunohistochemistry and in situ hybridization studies are performed for further evaluation. ??CD3 highlights mildly increased interstitial T lymphocytes in the bone marrow core, while CD20 highlights occasional admixed scattered B lymphocytes. Immunostains for CD3 and CD20 also highlight that lymphoid aggregate is composed of central B-cell predominant follicle which is surrounded by T cells. CD10 and BCL 6 highlights the germinal center in the lymphoid aggregate. BCL-2 highlights the T lymphocytes, and is negative in the germinal center. JAKOB stain highlights rare positive cells scattered throughout the marrow and lymphoid aggregate. ?Roxann Lozoya M.D. ?History: The patient is a 22-year-old man who presents with pancytopenia with a history of orthotopic liver transplant now with diffuse lymphadenopathy. ??Operative procedure: Left iliac bone marrow biopsy. Specimen(s) Received: A: Bone marrow biopsy, left posterior iliac crest B: Bone marrow, left aspirate for flow cytometry Gross Description: The specimen is received in a single formalin filled container, labeled with the patient's name. A. The specimen is received labeled with left iieum and consists of two preston- pink core fragments of bone measuring 0.5 and 2.1 cm in length each by 0.2 cm in diameter. ??Labeled A1. ??EDTA decalcification. ??Jar 0. lg/04/07/2017 15:17 ?Azucena Amaya MS, PA (ASCP) ? CBC: ?Date: 04/06/2017 ? WBCs: 4.6x10^3/mcl ? RBCs: 3.6x10^6/mcl ? Hemoglobin: 11.3g/dl ? Hematocrit: 34.2% ? Mean corpuscular volume (MCV): 94fl ? Red cell distribution width (RDW-SD): 13SD ? Platelets: 159x10^3/mcl ? Peripheral blood smear (Frazier-Giemsa): ?Red Blood Cells: Normocytic anemia ? White Blood Cells: Normal in number with absolute neutropenia and relative lymphocytosis and absolute monocytosis ? Platelets: Normal in number and predominantly normal in morphology ? Bone marrow aspirate smear (Frazier-Giemsa stain): Quality: ?Adequate Spicules: ?Present Marrow cellularity: ?Within normal limits Myeloid maturation: ?Left-shifted Erythroid maturation: ?Normal Myeloid/Erythroid Ratio: ?Increased Megakaryocyte number: ?Increased Megakaryocytic maturation: ?Occasional hypolobated forms Lymphocytes: ?scattered Plasma cells: ?scattered Differential count: ?Total # of Cells Counted:200 ? Blasts: 1 ? Promyelocytes: 18 ? Myelocytes: 6 ? Metamyelocytes: 19 ? Bands: 11 ? Neutrophils: 2 ? Eosinophils: 5 ? Lymphocytes: 15 ? Monocytes: 3 ? Erythroids: 20 ? Bone marrow core biopsy (decalcified, H&E and Leder stains): ? Left, iliac crest Quality: ?Adequate Length of evaluable marrow (millimeters): ?17 Cellularity: ?60-70% Myeloid maturation: ?Left-shifted Erythroid maturation: ?Normal The Leder stain shows that the Myeloid/Erythroid Ratio is: ?Increased Megakaryocyte number: ?Increased Megakaryocytic maturation: ?Normal, Clustered The Leder stain is used to assess for lymphoid aggregates: ?One ? Non-paratrabecular ? Comprising 5-10% of marrow cellularity ? secondary germinal center Plasma cells: ?scattered By this signature, I attest that the above diagnosis is based upon my personal examination of the slides(and/or other material). ?? Surgical Pathology report is available electronically in Clinical Desktop. The performance characteristics of some immunohistochemical stains, fluorescence in-situ hybridization tests and immunophenotyping by flow cytometry cited in this report (if any) were determined by the Surgical Pathology Department at [facility] as part of an ongoing it quality assurance analyst program and in compliance [...] determined by the Surgical Pathology Department of [facility]. ??It has not been cleared or approved by the U. S. Food and Drug Administration. us Tyra Walker NP LAB PATHOLOGY ORDERABLES Ed ited Result - Final Performing Organization Address City/[facility] Co de Phone Number [address] * Tacrolimus level trough (04/07/2017 6:55 AM CDT) Tacrolimus, trough 11.0 ng/mL [facility] Comment: Interpretive Data The therapeutic range for tacrolimus can vary by transplant organ type and sample timing but a trough range of 5 - 15 ng/mL is typical. Testing performed by liquid chromatography-tandem mass spectrometry (LC- MS/MS).This test was developed using an analyte specific reagent. Its performance characteristics were determined by the [facility] in a manner consistent with CLIA requirements. This test has not been cleared or approved by the U.S. Food and Drug Administration. Current interpretive data was last revised on 2016. Blood specimen (specimen) 04/07/2017 6:55 AM CDT 04/07/2017 7:54 AM CDT Nury De Oliveira MD LAB BLOOD ORDERABLES Chata l Result Performing Organization Address [facility] Co de Phone Number [facility] Department [place] [address] * Cytogenetics/Genomics (04/07/2017 12:00 AM CDT) 04/07/2017 04/07/2017 Narrative 04/30/2017 1:20 PM CDT Patient Information Visit Information Specimen Information ??Name: BEKA LARES Culture #: [id number] Gender: [facility] Facility #: [id number] Date Collected: 04/07/2017 : 1995 (Age: 22) Facility: [facility] Date Accessioned: 04/07/2017 Tissue: Bone Marrow Service: [facility] Date Ordered: 04/07/2017 ?? Location: [place] [address] ? Patient Type: [facility] Inpatient ?? Physician(s): LAURA Coe ?? Processin hrs unstimulated Indication: Pancytopenia Specimen Quality: Low cell count Adequate: ??Chromosome analysis ??CLINICAL REPORT ?? CHROMOSOME ANALYSIS ?? Metaphases Counted: ??20 Banding Technique: ??GTW Colonies Counted: ?? Metaphases Analyzed: ??20 Additional Method: ?? Number of Cultures: ??1 Metaphases Karyotyped: ??4 Banding Resolution: ??400 Subculture: ?? Karyotype: 46,XY[20] Diagnosis: ?? CHROMOSOME ANALYSIS: ? NO EVIDENCE OF CLONAL ABERRATIONS INTERPRETATION: No clonal cytogenetic aberrations were identified in metaphase cells analyzed from an unstimulated culture. ??This normal result does not exclude a neoplastic proliferation. Small chromosome anomalies may not be detectable using the standard methods employed. ??Chromosome analysis was performed at a level of 400 bands or greater. Rona Hayden, PhD, FACMG ?? 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 Critical result called to and read back by MARIFER PARDO RN on 04 07 2017 at 0125 to Leann Rodriguez. Imm gran abs 0.00 0.00 - 0.10 K/cumm [facility] Lymphocyte abs 2.58 0.80 - 3.30 K/cumm [facility] Monocyte abs 1.45(H) 0.20 - 0.80 K/cumm [facility] Eosinophil abs 0.39 0.00 - 0.50 K/cumm [facility] Basophil abs 0.04 0.00 - 0.10 K/cumm [facility] Blood specimen (specimen) 04/06/2017 11:27 PM CDT 04/07/2017 12:45 AM CDT Nury De Oliveira MD LAB BLOOD ORDERABLES Chata l Result [facility] Department [place] [address] * Basic metabolic panel (04/06/2017 11:27 PM CDT) [facility] Sodium 139 135 - 145 mmol/L [facility] Potassium, pl 4.4 3.3 - 4.9 mmol/L [facility] Chloride 105 97 - 110 mmol/L [facility] CO2 26 22 - 32 mmol/L [facility] BUN 15 8 - 25 mg/dL [facility] Glucose 98 70 - 199 mg/dL [facility] Creatinine 0.85 0.80 - 1.30 mg/dL [facility] Calcium 8.7 8.5 - 10.3 mg/dL [facility] Anion gap 8 2 - 15 mmol/L [facility] Blood specimen (specimen) 04/06/2017 11:27 PM CDT 04/07/2017 12:45 AM CDT Nury De Oliveira MD LAB BLOOD ORDERABLES Chata l Result Performing Organization Address City/[facility]/ZIP Co de Phone Number [facility] Department [place] [address] * (ABNORMAL) CBC with auto differential (04/06/2017 11:27 PM CDT) [facility] WBC 4.55 3.80 - 9.90 K/cumm [facility] RBC 3.64(L) 4.30 - 5.80 M/cumm [facility] Hgb 11.3(L) 13.0 - 17.5 g/dL [facility] Hct 34.2(L) 38.9 - 50.3 % [facility] MCV 94.0 81.3 - 96.4 fL [facility] MCH 31.0 27.1 - 33.3 pg [facility] MCHC 33.0 32.3 - 35.7 g/dL [facility] RDW CV 13.0 11.1 - 14.9 % [facility] RDW SD 44.3 35.7 - 48.1 fL [facility] Plt 159 150 - 400 K/cumm [facility] MPV 11.6 9.1 - 12.3 fL [facility] NRBC 0.0 0.0 - 0.2 % [facility] NRBC abs 0.00 0.00 - 0.01 K/cumm [facility] Blood specimen (specimen) 04/06/2017 11:27 PM CDT 04/07/2017 12:45 AM CDT Nury De Oliveira MD LAB BLOOD ORDERABLES Edit ed Result - Final [facility] Department [place] [address] * Biopsy Lymph Node Superficial (04/06/2017 9:08 PM CDT) Anatomical Region Laterality Modality Body N/A X-Ray Angiograph y 04/06/2017 9:08 PM CDT Narrative 04/06/2017 9:08 PM CDT RUTH ANN ROPER M.D. SHERWIN OLIVAREZ M.D. FINAL REPORT The radiology attending physician has personally reviewed this study, and has reviewed and/or edited this written report and agrees with it. ACC# ??Date Time ??Exam [id number] Apr 06, 2017 16:08:00 38006 US Needle guide [id number] Apr 06, 2017 16:08:00 36355 Bx Lymph Nd Sprficial ACC# ??Date Time ??Exam [id number] Apr 06, 2017 16:08:00 [id number] US Needle guide [id number] Apr 06, 2017 16:08:00 53948 Bx Lymph Nd Sprficial EXAMINATION: 1. BIOPSY LYMPH NODE SUPERFICIAL 2. ULTRASOUND NEEDLE GUIDE HISTORY: ??22-year-old male with extensive lymphadenopathy, most prominent in the cervical right level 2 nodes. FINDINGS: ??A right cervical level 2 lymph node is correlated with an FDG-avid cervical lymph node in PET/CT dated 04/05/2017 and selected for biopsy. COMPARISON: ??Comparison made to prior PET/CT dated 04/05/2017. TECHNIQUE: The procedure for ultrasound-guided core biopsy was explained to and discussed with the patient. Risks were explained to include, but not be limited to, hemorrhage, infection, injury to adjacent organs, ?? non-diagnostic specimen and adverse reaction to medications administered. The patient voiced understanding and wished to proceed and signed the consent form. CORE BIOPSY: The node selected for core biopsy was located in the right neck level 2. The patient's overlying skin was prepped and draped in the usual sterile fashion. Local anesthesia was achieved via subcutaneous and deep administration with 10 mL of Lidocaine 1% buffered with 8.4% bicarbonate. Under realtime ultrasound guidance, an 18 gauge core biopsy needle, 2 cm throw (first two times) and 1 cm throw (three times), was advanced into the node for a total of 5 core specimens were obtained. Four of the five core specimens were intact. The first two core specimens were placed in formalin and hand delivered to Surgical Pathology for evaluation. The next three core specimens were sent for cytology evaluation. The patient's skin was cleaned and dressed. The patient tolerated the entire procedure well without immediate complications. Dr. Ruth Ann Roper, the attending radiologist, was present from the beginning to the end of the procedure. ?? The attending radiologist, Dr. Roper, and the residential sales rep, Dr. Olivarez, performed the biopsy. ?? IMPRESSION: 1. ??Successful ultrasound-guided core needle biopsy of right level 2 cervical lymph node. 2. ??Please see Surgical Pathology and cytopathology results for final interpretation. ?? Requested By: NURY DE OLIVEIRA M.D. Dictated By: ?? SHERWIN OLIVAREZ M.D. ??on Apr ??2016 ??4:53P This document has been electronically signed by: RUTH ANN ROPER M.D. on Apr 06 2017 ??5:01P Procedure Note Miscellaneous, Not In File - 04/06/2017 RUTH ANN ROPER M.D. SHERWIN OLIVAREZ M.D. FINAL REPORT The radiology attending physician has personally reviewed this study, and has reviewed and/or edited this written report and agrees with it. ACC# Date Time Exam [id number] Apr 06, 2017 16:08:00 05884 US Needle guide [id number] Apr 06, 2017 16:08:00 98559 Bx Lymph Nd Sprficial ACC# Date Time Exam [id number] Apr 06, 2017 16:08:00 [id number] US Needle guide [id number] Apr 06, 2017 16:08:00 63307 Bx Lymph Nd Sprficial EXAMINATION: 1. BIOPSY LYMPH NODE SUPERFICIAL 2. ULTRASOUND NEEDLE GUIDE HISTORY: 22-year-old male with extensive lymphadenopathy, most prominent in the cervical right level 2 nodes. FINDINGS: A right cervical level 2 lymph node is correlated with an FDG-avid cervical lymph node in PET/CT dated 04/05/2017 and selected for biopsy. COMPARISON: Comparison made to prior PET/CT dated 04/05/2017. TECHNIQUE: The procedure for ultrasound-guided core biopsy was explained to and discussed with the patient. Risks were explained to include, but not be limited to, hemorrhage, infection, injury to adjacent organs, non-diagnostic specimen and adverse reaction to medications administered. The patient voiced understanding and wished to proceed and signed the consent form. CORE BIOPSY: The node selected for core biopsy was located in the right neck level 2. The patient's overlying skin was prepped and draped in the usual sterile fashion. Local anesthesia was achieved via subcutaneous and deep administration with 10 mL of Lidocaine 1% buffered with 8.4% bicarbonate. Under realtime ultrasound guidance, an 18 gauge core biopsy needle, 2 cm throw (first two times) and 1 cm throw (three times), was advanced into the node for a total of 5 core specimens were obtained. Four of the five core specimens were intact. The first two core specimens were placed in formalin and hand delivered to Surgical Pathology for evaluation. The next three core specimens were sent for cytology evaluation. The patient's skin was cleaned and dressed. The patient tolerated the entire procedure well without immediate complications. Dr. Ruth Ann Roper, the attending radiologist, was present from the beginning to the end of the procedure. The attending radiologist, Dr. Roper, and the residential sales rep, Dr. Olivarez, performed the biopsy. IMPRESSION: 1. Successful ultrasound-guided core needle biopsy of right level 2 cervical lymph node. 2. Please see Surgical Pathology and cytopathology results for final interpretation. Requested By: NURY DE OLIVEIRA M.D. Dictated By: SHERWIN OLIVAREZ M.D. on Apr 06 2017 4:53P This document has been electronically signed by: RUTH ANN ROPER M.D. on Apr 06 2017 5:01P us Not In File Miscellaneous IMG IR PROCEDURES Chata l Result * US Guided Needle Placement (04/06/2017 9:08 PM CDT) Anatomical Region Laterality Modality Entire body N/A Ultrasound 04/06/2017 9:08 PM CDT Narrative 04/06/2017 9:08 PM CDT RUTH ANN ROPER M.D. SHERWIN OLIVAREZ M.D. FINAL REPORT The radiology attending physician has personally reviewed this study, and has reviewed and/or edited this written report and agrees with it. ACC# ??Date Time ??Exam [id number] Apr 06, 2017 16:08:00 57760 US Needle guide [id number] Apr 06, 2017 16:08:00 63378 Bx Lymph Nd Sprficial ACC# ??Date Time ??Exam [id number] Apr 06, 2017 16:08:00 [id number] US Needle guide [id number] Apr 06, 2017 16:08:00 54416 Bx Lymph Nd Sprficial EXAMINATION: 1. BIOPSY LYMPH NODE SUPERFICIAL 2. ULTRASOUND NEEDLE GUIDE HISTORY: ??22-year-old male with extensive lymphadenopathy, most prominent in the cervical right level 2 nodes. FINDINGS: ??A right cervical level 2 lymph node is correlated with an FDG-avid cervical lymph node in PET/CT dated 04/05/2017 and selected for biopsy. COMPARISON: ??Comparison made to prior PET/CT dated 04/05/2017. TECHNIQUE: The procedure for ultrasound-guided core biopsy was explained to and discussed with the patient. Risks were explained to include, but not be limited to, hemorrhage, infection, injury to adjacent organs, ?? non-diagnostic specimen and adverse reaction to medications administered. The patient voiced understanding and wished to proceed and signed the consent form. CORE BIOPSY: The node selected for core biopsy was located in the right neck level 2. The patient's overlying skin was prepped and draped in the usual sterile fashion. Local anesthesia was achieved via subcutaneous and deep administration with 10 mL of Lidocaine 1% buffered with 8.4% bicarbonate. Under realtime ultrasound guidance, an 18 gauge core biopsy needle, 2 cm throw (first two times) and 1 cm throw (three times), was advanced into the node for a total of 5 core specimens were obtained. Four of the five core specimens were intact. The first two core specimens were placed in formalin and hand delivered to Surgical Pathology for evaluation. The next three core specimens were sent for cytology evaluation. The patient's skin was cleaned and dressed. The patient tolerated the entire procedure well without immediate complications. Dr. Ruth Ann Roper, the attending radiologist, was present from the beginning to the end of the procedure. ?? The attending radiologist, Dr. Roper, and the residential sales rep, Dr. Olivarez, performed the biopsy. ?? IMPRESSION: 1. ??Successful ultrasound-guided core needle biopsy of right level 2 cervical lymph node. 2. ??Please see Surgical Pathology and cytopathology results for final interpretation. ?? Requested By: NURY DE OLIVEIRA M.D. Dictated By: ?? SHERWIN OLIVAREZ M.D. ??on Apr ??2016 ??4:53P This document has been electronically signed by: RUTH ANN ROPER M.D. on Apr 06 2017 ??5:01P [id number] Procedure Note Miscellaneous, Not In File / Provider, MD Dl - 04/06/2017 Stephon DIANA M.D. FINAL REPORT The radiology attending physician has personally reviewed this study, and has reviewed and/or edited this written report and agrees with it. ACC# Date Time Exam [id number] Apr 06, 2017 16:08:00 [id number] US Needle guide [id number] Apr 06, 2017 16:08:00 99425 Bx Lymph Nd Sprficial ACC# Date Time Exam [id number] Apr 06, 2017 16:08:00 79954 US Needle guide [id number] Apr 06, 2017 16:08:00 54928 Bx Lymph Nd Sprficial EXAMINATION: 1. BIOPSY LYMPH NODE SUPERFICIAL 2. ULTRASOUND NEEDLE GUIDE HISTORY: 22-year-old male with extensive lymphadenopathy, most prominent in the cervical right level 2 nodes. FINDINGS: A right cervical level 2 lymph node is correlated with an FDG-avid cervical lymph node in PET/CT dated 04/05/2017 and selected for biopsy. COMPARISON: Comparison made to prior PET/CT dated 04/05/2017. TECHNIQUE: The procedure for ultrasound-guided core biopsy was explained to and discussed with the patient. Risks were explained to include, but not be limited to, hemorrhage, infection, injury to adjacent organs, non-diagnostic specimen and adverse reaction to medications administered. The patient voiced understanding and wished to proceed and signed the consent form. CORE BIOPSY: The node selected for core biopsy was located in the right neck level 2. The patient's overlying skin was prepped and draped in the usual sterile fashion. Local anesthesia was achieved via subcutaneous and deep administration with 10 mL of Lidocaine 1% buffered with 8.4% bicarbonate. Under realtime ultrasound guidance, an 18 gauge core biopsy needle, 2 cm throw (first two times) and 1 cm throw (three times), was advanced into the node for a total of 5 core specimens were obtained. Four of the five core specimens were intact. The first two core specimens were placed in formalin and hand delivered to Surgical Pathology for evaluation. The next three core specimens were sent for cytology evaluation. The patient's skin was cleaned and dressed. The patient tolerated the entire procedure well without immediate complications. Dr. Ruth Ann Roper, the attending radiologist, was present from the beginning to the end of the procedure. The attending radiologist, Dr. Roper, and the residential sales rep, Dr. Olivarez, performed the biopsy. IMPRESSION: 1. Successful ultrasound-guided core needle biopsy of right level 2 cervical lymph node. 2. Please see Surgical Pathology and cytopathology results for final interpretation. Requested By: NURY DE OLIVEIRA M.D. Dictated By: SHERWIN OLIVAREZ M.D. on Apr 06 2017 4:53P This document has been electronically signed by: RUTH ANN ROPER M.D. on Apr 06 2017 5:01P [id number] us Not In File Miscellaneous IMG US PROCEDURES Chata l Result * Leukemia/lymphoma studies (04/06/2017 2:00 PM CDT) CD 3 Test Completed [facility] CD 5 Test Completed [facility] CD 10 Test Completed [facility] CD 19 Test Completed [facility] CD 20 Test Completed [facility] CD 23 Test Completed [facility] CD 45 Test Completed [facility] Rio Dell Test Completed [facility] Lambda Test Completed [facility] Frazier Stain Test Completed [facility] Leukemia/Lymp josé manuel Result See separate Surgical Pathology report. [facility] Bone marrow 04/06/2017 2:00 PM CDT 04/06/2017 6:52 PM CDT us Diogenes Carrera MD LAB BLOOD ORDERABLES Fin al Result [facility] Department [place] [address] * SURGICAL PATHOLOGY (04/06/2017 8:56 AM CDT) 04/06/2017 8:56 AM CDT 04/06/2017 5:15 PM CDT Narrative 04/12/2017 11:47 AM CDT [facility] Yulisa Garcia [facility] [place] [address] SURGICAL PATHOLOGY REPORT FINAL Patient Name: BEKA LARES ? Address: [address] [place] [address] ??Service: ??Internal Medicine ??[place], [place] ??[address] ??Location: ??[facility] 0145 Taken: 04/06/2017 Gender: M ?? Received: 04/06/2017 : 1995 (Age: 22) ?? Hospital #: ??[id number] Accessioned: 04/06/2017 ?Patient Type: [facility] Reported: 04/12/2017 ? Physician(s): Stephon Torre M.D. ? Diagnosis: Lymph node, right cervical, ultrasound-guided needle core biopsy ? - Organized lymphoid tissue with florid follicular hyperplasia, EBV- positive ? - See comment Lymph node, right cervical, ultrasound guided needle core biopsy for flow cytometry ? - No clonal B-cell population identified vxm/04/08/2017 12:36 By this signature, I attest that the above diagnosis is based upon my personal examination of the slides(and/or other material indicated in the diagnosis). ?? Cliff Ribeiro M.D. ??Report Electronically Reviewed and Signed Out By ??Cliff Ribeiro M.D. 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 No architectural effacement is identified in this core biopsy, ruling out the possibility of polymorphous PTLD. No monomorphic PTLD is identified (flow cytometry is negative for clonal B cells). However, this is a core biopsy and if clinical concern persists in regards to a polymorphous PTLD, excisional biopsy is recommended. This case was shared at that hematopathology consensus meeting on Wednesday04/12/17 at 11:00 am. Curt Dasilva, Lenard and Blayne agree with the above diagnosis. Dr. Nury De Oliveira was notified of the preliminary results on 04/08/17 at 1:20 PM and the Infectious Disease Medical team was notified on 04/09/17 at 4:45 PM by Hematopathology fellow, Dr. Do Ramires. Microscopic Description and Comment: A lymphoma workup was performed due to concern for post transplant lymphoproliferative disorder. H&E stained sections slender cores of lymphoid tissue with a relatively preserved architecture displaying a nodular pattern with germinal centers and tingible body macrophages. ??There is increased mitotic activity and apoptotic bodies within the germinal centers. ??The lymphocytic infiltrate is composed of small lymphocytes, plasma cells and histiocytes. Larger cells consistent with centroblasts and immunoblasts are identified within the germinal centers. Immunohistochemistry with appropriate controls was performed on tissue sections in addition to flow cytometry to investigate the immunophenotype of the potential lesional cells in an architectural context (CD3, CD20, PAX-5, CD21, BCL6, BCL2, CD10, CD30, CD43, and CD138). ??In situ hybridization for Nadine-De La Cruz virus and kappa and lambda light chains was also performed. CD3 highlights small T cells in the interfollicular areas and CD20 and PAX-5 highlight small B cells within the nodules, consistent with a normal lymph node immunophenotype. ??CD10 and BCL-6 highlight B cells in the germinal centers, suggesting a preserved follicular architecture. ??CD21 highlights follicular dendritic cells meshworks, focally expanded. ??BCL-2 highlights small T cells in the interfollicular areas, with similar staining pattern to CD3, and are negative in the follicles. ??CD43 highlights small T cells in the interfollicular areas and is negative in the B cells. ??CD30 is essentially negative. ??CD138 highlights rare scattered plasma cells, accounting for approximately 5% of cellularity. ??By in situ hybridization for kappa and lambda light chains, the plasma cells are polyclonal, with a kappa to lambda ratio of 1:1. ??In situ hybridization for Nadine-De La Cruz virus is positive in scattered small cells and 8818in follicles. Flow cytometry shows 85% of all gated events with scatter characteristics of lymphocytes, 67% of which are CD3 positive T cells and 29% are CD19- positive/CD20 positive polyclonal B cells with a kappa to lambda ratio of 1.1 and no significant CD5, CD10, and CD23 expression. ?Chiki Ramires M.D. ?History: The patient is a 22-year-old man who presents with cervical lymphadenopathy status post transbronchial lymph node biopsy suggesting lymphoma on March 11, 2017. ??Operative procedure: Ultrasound-guided core biopsy of right cervical lymph node. Specimen(s) Received: A: Right cervical lymph node B: Lymph node, whole or part, for flow cytometry Gross Description: The specimen is received in a single formalin filled container, labeled with the patient's name. A. The specimen is received labeled with right cervical lymph node core and consists of six white-preston core fragments of soft tissue ranging from 0.5 to 1.3 cm in length each by 0.1 cm in diameter. ??Wrapped. ??Labeled A1 to A2. ??Jar 0. lg04/07/2017 10:11 ?Cindy Huynh M.D. ? By this signature, I attest that the above diagnosis is based upon my personal examination of the slides(and/or other material). ?? Surgical Pathology report is available electronically in Clinical Desktop. The performance characteristics of some immunohistochemical stains, fluorescence in-situ hybridization tests and immunophenotyping by flow cytometry cited in this report (if any) were determined by the Surgical Pathology Department at [facility] as part of an ongoing it quality assurance analyst program and in compliance [...] determined by the Surgical Pathology Department of [facility]. ??It has not been cleared or approved by the U. S. Food and Drug Administration. Nury De Oliveira MD LAB PATHOLOGY ORDERABLES Edited Result - Final * HIV-1 RNA, quantitative, PCR (04/06/2017 12:53 AM CDT) [facility] HIV-1 RNA Not Detected [facility] Comment: Interpretive Data: The quantifiable range of this assay is 20 copies/mL to 10,000,000 copies/mL (1.30 log copies/mL to 7.00 log copies/mL). ??Testing was performed by the NIA AmpliPrep/NIA TaqMan HIV-1 Test version 2.0 ([employer] Testing performed at [facility] Current Interpretive Data was last revised on 2015. Blood specimen (specimen) 04/06/2017 12:53 AM CDT 04/06/2017 7:38 AM CDT Inna Sal MD LAB MICROBIOLOGY - GEN ERAL ORDERABLES Final Result [facility] Department [place] [address] * (ABNORMAL) CBC with auto differential (04/06/2017 12:53 AM CDT) [facility] WBC 4.25 3.80 - 9.90 K/cumm [facility] RBC 4.08(L) 4.30 - 5.80 M/cumm [facility] Hgb 13.1 13.0 - 17.5 g/dL [facility] Hct 37.7(L) 38.9 - 50.3 % [facility] MCV 92.4 81.3 - 96.4 fL [facility] MCH 32.1 27.1 - 33.3 pg [facility] MCHC 34.7 32.3 - 35.7 g/dL [facility] RDW CV 12.8 11.1 - 14.9 % [facility] RDW SD 43.6 35.7 - 48.1 fL [facility] Plt 25(C) 150 - 400 K/cumm [facility] Comment:Inpatient, result no t critical MPV Not Measured 9.1 - 12.3 fL [facility] NRBC 0.0 0.0 - 0.2 % [facility] NRBC abs 0.00 0.00 - 0.01 K/cumm [facility] Blood specimen (specimen) 04/06/2017 12:53 AM CDT 04/06/2017 1:26 AM CDT Nury De Oliveira MD LAB BLOOD ORDERABLES Chata l Result Performing Organization Address [facility] Co de Phone Number [facility] Department [place] [address] * (ABNORMAL) Differential, auto (04/06/2017 12:53 AM CDT) Pathologist [facility] Neutrophil pct 1.9 % [facility] Imm gran pct 0.0 % [facility] Lymphocyte pct 55.5 % [facility] Monocyte pct 30.4 % [facility] Eosinophil pct 10.8 % [facility] Basophil pct 1.4 % [facility] Neutrophil abs 0.08(C) 1.70 - 6.50 K/cumm [facility] Comment:Critical result call ed to and read back by HESHAM SONG RN on 04 06 2017 at 0201 to Leann Rodriguez. Imm gran abs 0.00 0.00 - 0.10 K/cumm [facility] Lymphocyte abs 2.36 0.80 - 3.30 K/cumm [facility] Monocyte abs 1.29(H) 0.20 - 0.80 K/cumm [facility] Eosinophil abs 0.46 0.00 - 0.50 K/cumm [facility] Basophil abs 0.06 0.00 - 0.10 K/cumm [facility] Blood specimen (specimen) 04/06/2017 12:53 AM CDT 04/06/2017 1:26 AM CDT Nury De Oliveira MD LAB BLOOD ORDERABLES Chata l Result Performing Organization Address City/[facility]/ZIP Co de Phone Number [facility] Department [place] [address] * (ABNORMAL) Comprehensive metabolic panel (04/06/2017 12:53 AM CDT) Pathologist [facility] Sodium 140 135 - 145 mmol/L [facility] Potassium, pl 4.5 3.3 - 4.9 mmol/L [facility] CO2 26 22 - 32 mmol/L [facility] BUN 11 8 - 25 mg/dL [facility] Glucose 101 70 - 199 mg/dL [facility] Creatinine 0.83 0.80 - 1.30 mg/dL [facility] Calcium 8.5 8.5 - 10.3 mg/dL [facility] Chloride 107 97 - 110 mmol/L [facility] Comment:fixed result mapping Albumin 3.0(L) 3.5 - 5.0 g/dL [facility] AST 18 10 - 50 Units/L [facility] ALT 28 7 - 55 Units/L [facility] Alk phos 131(H) 40 - 130 Units/L [facility] Bilirubin, total 0.3 0.1 - 1.2 mg/dL [facility] Protein, pl 7.3 6.5 - 8.5 g/dL [facility] Anion gap 7 2 - 15 mmol/L [facility] Blood specimen (specimen) 04/06/2017 12:53 AM CDT 04/06/2017 1:26 AM CDT Nury De Oliveira MD LAB BLOOD ORDERABLES Chata cuadra Result [facility] Department [place] [address] * Protime-INR (04/06/2017 12:53 AM CDT) [facility] PT 13.0 9.2 - 14.0 sec [facility] INR 1.14 0.81 - 1.22 [facility] Comment: Interpretive Data Inpatient therapeutic ranges* Atrial fibrillation ?2.0-3.0 INR Venous thrombo-embolism ?2.0-3.0 INR Bioprosthetic heart valve ?* Mechanical heart valve, bileaflet or tilting disk,aortic position ? 2.0-3.0 INR All other,or bileaflet or tilting disk, in mitral position ? 2.5-3.5 INR *See the pharmacy resource directory (PHRED) for an updated copy of the Tool Book at [email or web address] Current Interpretive Data was last revised 2012. Blood specimen (specimen) 04/06/2017 12:53 AM CDT 04/06/2017 1:25 AM CDT Nury De Oliveira MD LAB BLOOD ORDERABLES Chata cuadra Result [facility] Department [place] [address] * Transfusion Event (04/05/2017 9:03 PM CDT) 04/05/2017 9:03 PM CDT Narrative [facility] - 04/05/2017 9:03 PM CDT [facility] [phone] [id number] Pre Transfusion checks verified 04-05-2017 16:03 by Brenda Munoz Consent or Emergency Release Verified Order to Transfuse in last 24hrs Pre Medication Orders Reviewed Verified Crossmatch, if performed Special requirements ordered are met [id number] Platelets Washed Apheresis PLATELETS LEUKOREDUCED Product Expiration Date Time: 04-05-2017 18:25 Start Transfusionist: Brenda Munoz Start Date/Time of Transfusion: 04-05-2017 16:03 End Transfusionist: Brenda Munoz End Date/Time of Transfusion: 04-05-2017 16:54 Vitals Date/Time ?Bld Pressure ??HR ?Respirations ??Temp ??Site ?O2 Sat 04-05-2017 15:56 94/53 ? 72 ?22 ?37.2 ??Oral ?98 04-05-2017 16:18 83/46 ? 73 ?22 ?37.4 ??Oral ?98 04-05-2017 16:56 101/64 ?66 ?20 ?37.2 ??Oral ?98 04-05-2017 18:44 91/52 ? 81 ?20 ?37.4 ??Oral ?100 04-05-2017 20:14 103/60 ?72 ?20 ?37.4 ??Oral ?100 04-05-2017 20:30 99/51 ? 70 ?18 ?37.4 ??Oral ?100 04-05-2017 20:45 99/54 ? 67 ?18 ?36.9 ??Oral ?100 04-05-2017 21:00 98/54 ? 73 ?18 ?36.8 ??Oral ?100 04-05-2017 21:15 104/63 ?68 ?20 ?36.8 ??Oral ?100 04-05-2017 21:45 101/61 ?68 ?18 ?36.5 ??Oral ?98 04-05-2017 22:16 105/60 ?61 ?20 ?36.4 ??Oral ?99 Total Volume Transfused: 103 mL Transfusion Reaction Indicated: NO us Not In File Miscellaneous BLOOD BANK PRODUCT ORD ERABLES Final Result [facility] [address] [place] [address] * PET/CT FDG Skull to Thigh (04/05/2017 6:03 PM CDT) Anatomical Region Laterality Modality N/A Positron Emissio n Tomography (PET) 04/05/2017 6:03 PM CDT Narrative 04/05/2017 6:03 PM CDT MD DAVID MONDRAGON M.D. FINAL REPORT The radiology attending physician has personally reviewed this study, and has reviewed and/or edited this written report and agrees with it. ACC# ??Date Time ??Exam [id number] Apr 05, 2017 13:03:00 [id number] PET/CT Sk-Thigh EXAMINATION: ?TUMOR FDG-PET/CT IMAGING This revised report has been generated to correct the examination Ordering Physician; the report has not been altered from the previous version. DATE OF STUDY: ??04/05/2017 SCANNER: [facility] RADIOPHARMACEUTICAL: ??13.1 mCi F-18 Fluorodeoxyglucose (FDG) i.v. ?? Injection site: Left forearm. HISTORY: 22-year-old man with autoimmune hepatitis status post orthotopic liver transplant x2 in 1998 complicated by idiopathic thrombocytopenia status post splenectomy and chronic steroid use starting and 2012. Patient found to have mediastinal lymphadenopathy and multiple pulmonary nodules on a chest CT dated February 01, 2017 with negative BAL and lymph node biopsy on 03/11/2017. Patient recently presented with neck swelling and dysphagia with imaging findings concerning for post transplant lymphoproliferative disorder, lymphoma or infection. Initial treatment strategy. TECHNIQUE: ??The patient's fasting blood glucose level, measured by glucometer before injection of FDG, was 85 mg/dL. ??MD-Gastroview was not given orally. ??After intravenous administration of FDG, noncontrast CT images were obtained for attenuation correction and for fusion with emission PET images to allow for anatomical localization of PET findings. Emission PET images were then obtained. The area imaged spanned the region from the skull vertex to the proximal thighs. The time from injection of FDG to start of imaging was 76 minutes. The mean liver SUV (reported for quality director purposes) is 1.8. ??The study was interpreted on the [employer] workstation. COMPARISON: No prior PET CT is available for comparison. Correlation is made to a neck CT dated 04/03/[address] dated 02/16/2017. FINDINGS: There are multiple enlarged cervical lymph nodes along the cervical lizzie stations bilaterally, most prominently in the right level IIa and IIb region. Regions of greatest FDG uptake are seen along the right level IIa and IIb lizzie stations with a maximum SUV of 39.5. In addition to the cervical lymphadenopathy, there are several supraclavicular and axillary lymph nodes demonstrating increased FDG uptake. For reference, a right supraclavicular lymph node measures approximately 1.2 x 1.1 cm with a maximum SUV of 20.7 (image 79/389). A left axillary lymph node measuring 1.6 x 1.3 cm with a maximum SUV of 9.3 (image 102/389). Additional lymph nodes with increased FDG uptake are seen in the axilla, mediastinum and alma bilaterally. Of note, the largest conglomeration of lymph nodes within the chest are seen in the right infrahilar region with a maximum SUV of 8.2. Within the abdomen, there are focal areas of increased FDG uptake throughout the small bowel, which is nonspecific. Focal area of increased uptake within a mesenteric lymph node at image 187/389 demonstrates a maximum SUV of 6.2. Additional scattered periportal, retroperitoneal lymph nodes also demonstrate mild increased FDG uptake. There is a focal area of increased FDG uptake in the left anterior abdomen at image 238/389, which could represent small bowel versus peritoneum, difficult to evaluate on the noncontrast examination and associated motion artifact. There is also mild FDG-uptake along the bilateral pelvic sidewalls representing obturator and iliac chain nodes. A small 1cm ?? right inguinal lymph node demonstrates increased FDG uptake with a maximum SUV of 6.2 (image 288/389). There is diffuse FDG uptake throughout the bone marrow without focal osseous lesion. Additional CT findings: There are scattered pulmonary nodules the lungs bilaterally. For reference, there is a conglomeration of groundglass nodules ranging from 6 mm to 1.2 cm within the right lower lobe that demonstrate mild increased FDG uptake with a maximum SUV of 3.6. Additional pulmonary nodules are seen throughout the lungs bilaterally. For reference, there is a 1.3 x 0.9 cm nodule in the right lower lobe adjacent to a 1.0 x 1.4 cm nodule in the right lower lobe (image 148/389). This lesion does not demonstrate increased FDG uptake. Scattered subcentimeter pulmonary nodules are also seen in the right upper lobe, lingula and left lower lobe. When compared to a CT of the chest dated 02/16/2017, some lesions appear new and some have either resolved or decreased in size. ??Postsurgical changes of a orthotopic liver transplant are noted. There is a left adrenal nodule with mild FDG uptake with a maximum SUV of 5.3. ?? IMPRESSION: 1. Extensive lymphadenopathy throughout the cervical chain, supraclavicular, axillary, mediastinal, hilar, mesenteric, retroperitoneal and periportal regions with increased FDG uptake, most prominent in the right level IIa/IIb nodes. Differential diagnosis includes posttransplant lymphoproliferative disorder, lymphoma, or diffuse lymphadenopathy from infectious etiology. The right level IIa/b nodes and left axillary nodes appear most amenable to ultrasound guided biopsy. 2. Numerous pulmonary nodules in the lungs bilaterally, some of which appear new and some of which have decreased in size or are no longer apparent when compared to a prior chest CT dated 02/16/2017. Differential diagnosis includes infectious etiology versus post transplant lymphoproliferative disorder. 3. Indeterminate focal areas of FDG uptake throughout the small bowel and possible involvement of the peritoneum as described above. 4. Diffuse FDG uptake throughout the bone marrow could be secondary to therapy, anemia or other etiology for hyperplastic bone marrow. Requested By: DIOGENES CARRERA ??M.D. ? Dictated By: ?? DAVID JESSICA M.D. ??on Apr ??2016 11:20A This document has been electronically signed by: SHAZIA KERR MD on Apr 07 2017 12:11P [id number] Procedure Note Miscellaneous, Not In File / Provider, MD Dl - 04/07/2017 MD DAVID MONDRAGON M.D. FINAL REPORT The radiology attending physician has personally reviewed this study, and has reviewed and/or edited this written report and agrees with it. ACC# Date Time Exam [id number] Apr 05, 2017 13:03:00 [id number] PET/CT Sk-Thigh EXAMINATION: TUMOR FDG-PET/CT IMAGING This revised report has been generated to correct the examination Ordering Physician; the report has not been altered from the previous version. DATE OF STUDY: 04/05/2017 SCANNER: [facility] RADIOPHARMACEUTICAL: 13.1 mCi F-18 Fluorodeoxyglucose (FDG) i.v. Injection site: Left forearm. HISTORY: 22-year-old man with autoimmune hepatitis status post orthotopic liver transplant x2 in 1998 complicated by idiopathic thrombocytopenia status post splenectomy and chronic steroid use starting and 2012. Patient found to have mediastinal lymphadenopathy and multiple pulmonary nodules on a chest CT dated February 01, 2017 with negative BAL and lymph node biopsy on 03/11/2017. Patient recently presented with neck swelling and dysphagia with imaging findings concerning for post transplant lymphoproliferative disorder, lymphoma or infection. Initial treatment strategy. TECHNIQUE: The patient's fasting blood glucose level, measured by glucometer before injection of FDG, was 85 mg/dL. CHLOEGastroview was not given orally. After intravenous administration of FDG, noncontrast CT images were obtained for attenuation correction and for fusion with emission PET images to allow for anatomical localization of PET findings. Emission PET images were then obtained. The area imaged spanned the region from the skull vertex to the proximal thighs. The time from injection of FDG to start of imaging was 76 minutes. The mean liver SUV (reported for quality director purposes) is 1.8. The study was interpreted on the [employer] workstation. COMPARISON: No prior PET CT is available for comparison. Correlation is made to a neck CT dated 04/03/[address] dated 02/16/2017. FINDINGS: There are multiple enlarged cervical lymph nodes along the cervical lizzie stations bilaterally, most prominently in the right level IIa and IIb region. Regions of greatest FDG uptake are seen along the right level IIa and IIb lizzie stations with a maximum SUV of 39.5. In addition to the cervical lymphadenopathy, there are several supraclavicular and axillary lymph nodes demonstrating increased FDG uptake. For reference, a right supraclavicular lymph node measures approximately 1.2 x 1.1 cm with a maximum SUV of 20.7 (image 79/389). A left axillary lymph node measuring 1.6 x 1.3 cm with a maximum SUV of 9.3 (image 102/389). Additional lymph nodes with increased FDG uptake are seen in the axilla, mediastinum and alma bilaterally. Of note, the largest conglomeration of lymph nodes within the chest are seen in the right infrahilar region with a maximum SUV of 8.2. Within the abdomen, there are focal areas of increased FDG uptake throughout the small bowel, which is nonspecific. Focal area of increased uptake within a mesenteric lymph node at image 187/389 demonstrates a maximum SUV of 6.2. Additional scattered periportal, retroperitoneal lymph nodes also demonstrate mild increased FDG uptake. There is a focal area of increased FDG uptake in the left anterior abdomen at image 238/389, which could represent small bowel versus peritoneum, difficult to evaluate on the noncontrast examination and associated motion artifact. There is also mild FDG-uptake along the bilateral pelvic sidewalls representing obturator and iliac chain nodes. A small 1cm right inguinal lymph node demonstrates increased FDG uptake with a maximum SUV of 6.2 (image 288/389). There is diffuse FDG uptake throughout the bone marrow without focal osseous lesion. Additional CT findings: There are scattered pulmonary nodules the lungs bilaterally. For reference, there is a conglomeration of groundglass nodules ranging from 6 mm to 1.2 cm within the right lower lobe that demonstrate mild increased FDG uptake with a maximum SUV of 3.6. Additional pulmonary nodules are seen throughout the lungs bilaterally. For reference, there is a 1.3 x 0.9 cm nodule in the right lower lobe adjacent to a 1.0 x 1.4 cm nodule in the right lower lobe (image 148/389). This lesion does not demonstrate increased FDG uptake. Scattered subcentimeter pulmonary nodules are also seen in the right upper lobe, lingula and left lower lobe. When compared to a CT of the chest dated 02/16/2017, some lesions appear new and some have either resolved or decreased in size. Postsurgical changes of a orthotopic liver transplant are noted. There is a left adrenal nodule with mild FDG uptake with a maximum SUV of 5.3. IMPRESSION: 1. Extensive lymphadenopathy throughout the cervical chain, supraclavicular, axillary, mediastinal, hilar, mesenteric, retroperitoneal and periportal regions with increased FDG uptake, most prominent in the right level IIa/IIb nodes. Differential diagnosis includes posttransplant lymphoproliferative disorder, lymphoma, or diffuse lymphadenopathy from infectious etiology. The right level IIa/b nodes and left axillary nodes appear most amenable to ultrasound guided biopsy. 2. Numerous pulmonary nodules in the lungs bilaterally, some of which appear new and some of which have decreased in size or are no longer apparent when compared to a prior chest CT dated 02/16/2017. Differential diagnosis includes infectious etiology versus post transplant lymphoproliferative disorder. 3. Indeterminate focal areas of FDG uptake throughout the small bowel and possible involvement of the peritoneum as described above. 4. Diffuse FDG uptake throughout the bone marrow could be secondary to therapy, anemia or other etiology for hyperplastic bone marrow. Requested By: DIOGENES CARRERA M.D. Dictated By: DAVID JESSICA M.D. on Apr 07 2017 11:20A This document has been electronically signed by: SHAZIA KERR MD on Apr 07 2017 12:11P [id number] us Not In File Miscellaneous IMG PET PROCEDURES Fin al Result * PET/CT FDG Skull to Thigh (04/05/2017 6:03 PM CDT) Anatomical Region Laterality Modality N/A Positron Emissio n Tomography (PET) 04/05/2017 6:03 PM CDT Narrative 04/05/2017 6:03 PM CDT MD DAVID MONDRAGON M.D. FINAL REPORT The radiology attending physician has personally reviewed this study, and has reviewed and/or edited this written report and agrees with it. ACC# ??Date Time ??Exam [id number] Apr 05, 2017 13:03:00 [id number] PET/CT Sk-Thigh EXAMINATION: ?TUMOR FDG-PET/CT IMAGING ADDENDUM THIS STUDY IS BEING ADDENDED TO CORRECT THE ORDERING PHYSICIAN. DATE OF STUDY: ??04/05/2017 SCANNER: [facility] RADIOPHARMACEUTICAL: ??13.1 mCi F-18 Fluorodeoxyglucose (FDG) i.v. ?? Injection site: Left forearm. HISTORY: 22-year-old man with autoimmune hepatitis status post orthotopic liver transplant x2 in 1998 complicated by idiopathic thrombocytopenia status post splenectomy and chronic steroid use starting and 2012. Patient found to have mediastinal lymphadenopathy and multiple pulmonary nodules on a chest CT dated February 01, 2017 with negative BAL and lymph node biopsy on 03/11/2017. Patient recently presented with neck swelling and dysphagia with imaging findings concerning for post transplant lymphoproliferative disorder, lymphoma or infection. Initial treatment strategy. TECHNIQUE: ??The patient's fasting blood glucose level, measured by glucometer before injection of FDG, was 85 mg/dL. ??MD-Gastroview was not given orally. ??After intravenous administration of FDG, noncontrast CT images were obtained for attenuation correction and for fusion with emission PET images to allow for anatomical localization of PET findings. Emission PET images were then obtained. The area imaged spanned the region from the skull vertex to the proximal thighs. The time from injection of FDG to start of imaging was 76 minutes. The mean liver SUV (reported for quality director purposes) is 1.8. ??The study was interpreted on the [employer] workstation. COMPARISON: No prior PET CT is available for comparison. Correlation is made to a neck CT dated 04/03/[address] dated 02/16/2017. FINDINGS: There are multiple enlarged cervical lymph nodes along the cervical lizzie stations bilaterally, most prominently in the right level IIa and IIb region. Regions of greatest FDG uptake are seen along the right level IIa and IIb lizzie stations with a maximum SUV of 39.5. In addition to the cervical lymphadenopathy, there are several supraclavicular and axillary lymph nodes demonstrating increased FDG uptake. For reference, a right supraclavicular lymph node measures approximately 1.2 x 1.1 cm with a maximum SUV of 20.7 (image 79/389). A left axillary lymph node measuring 1.6 x 1.3 cm with a maximum SUV of 9.3 (image 102/389). Additional lymph nodes with increased FDG uptake are seen in the axilla, mediastinum and alma bilaterally. Of note, the largest conglomeration of lymph nodes within the chest are seen in the right infrahilar region with a maximum SUV of 8.2. Within the abdomen, there are focal areas of increased FDG uptake throughout the small bowel, which is nonspecific. Focal area of increased uptake within a mesenteric lymph node at image 187/389 demonstrates a maximum SUV of 6.2. Additional scattered periportal, retroperitoneal lymph nodes also demonstrate mild increased FDG uptake. There is a focal area of increased FDG uptake in the left anterior abdomen at image 238/389, which could represent small bowel versus peritoneum, difficult to evaluate on the noncontrast examination and associated motion artifact. There is also mild FDG-uptake along the bilateral pelvic sidewalls representing obturator and iliac chain nodes. A small 1cm ?? right inguinal lymph node demonstrates increased FDG uptake with a maximum SUV of 6.2 (image 288/389). There is diffuse FDG uptake throughout the bone marrow without focal osseous lesion. Additional CT findings: There are scattered pulmonary nodules the lungs bilaterally. For reference, there is a conglomeration of groundglass nodules ranging from 6 mm to 1.2 cm within the right lower lobe that demonstrate mild increased FDG uptake with a maximum SUV of 3.6. Additional pulmonary nodules are seen throughout the lungs bilaterally. For reference, there is a 1.3 x 0.9 cm nodule in the right lower lobe adjacent to a 1.0 x 1.4 cm nodule in the right lower lobe (image 148/389). This lesion does not demonstrate increased FDG uptake. Scattered subcentimeter pulmonary nodules are also seen in the right upper lobe, lingula and left lower lobe. When compared to a CT of the chest dated 02/16/2017, some lesions appear new and some have either resolved or decreased in size. ??Postsurgical changes of a orthotopic liver transplant are noted. There is a left adrenal nodule with mild FDG uptake with a maximum SUV of 5.3. ?? IMPRESSION: 1. Extensive lymphadenopathy throughout the cervical chain, supraclavicular, axillary, mediastinal, hilar, mesenteric, retroperitoneal and periportal regions with increased FDG uptake, most prominent in the right level IIa/IIb nodes. Differential diagnosis includes posttransplant lymphoproliferative disorder, lymphoma, or diffuse lymphadenopathy from infectious etiology. The right level IIa/b nodes and left axillary nodes appear most amenable to ultrasound guided biopsy. 2. Numerous pulmonary nodules in the lungs bilaterally, some of which appear new and some of which have decreased in size or are no longer apparent when compared to a prior chest CT dated 02/16/2017. Differential diagnosis includes infectious etiology versus post transplant lymphoproliferative disorder. 3. Indeterminate focal areas of FDG uptake throughout the small bowel and possible involvement of the peritoneum as described above. 4. Diffuse FDG uptake throughout the bone marrow could be secondary to therapy, anemia or other etiology for hyperplastic bone marrow. ?? Requested By: DIOGENES CARRERA ?? Dictated By: ?? DAVID JESSICA M.D. ??on Apr ??2016 ??2:07P This document has been electronically signed by: SHAZIA KERR MD on Apr 05 2017 ??6:39P Addendum Dictated by: REGGIE FERRARI M.D. on Apr 11:18A This Addendum has been electronically signed by: SHAZIA KERR MD on Apr 07 2017 12:12P Procedure Note Miscellaneous, Not In File / Provider, MD Dl - 04/07/2017 MD DAVID MONDRAGON M.D. FINAL REPORT The radiology attending physician has personally reviewed this study, and has reviewed and/or edited this written report and agrees with it. ACC# Date Time Exam [id number] Apr 05, 2017 13:03:00 07508 PET/CT Sk-Thigh EXAMINATION: TUMOR FDG-PET/CT IMAGING ADDENDUM THIS STUDY IS BEING ADDENDED TO CORRECT THE ORDERING PHYSICIAN. DATE OF STUDY: 04/05/2017 SCANNER: [facility] RADIOPHARMACEUTICAL: 13.1 mCi F-18 Fluorodeoxyglucose (FDG) i.v. Injection site: Left forearm. HISTORY: 22-year-old man with autoimmune hepatitis status post orthotopic liver transplant x2 in 1998 complicated by idiopathic thrombocytopenia status post splenectomy and chronic steroid use starting and 2012. Patient found to have mediastinal lymphadenopathy and multiple pulmonary nodules on a chest CT dated February 01, 2017 with negative BAL and lymph node biopsy on 03/11/2017. Patient recently presented with neck swelling and dysphagia with imaging findings concerning for post transplant lymphoproliferative disorder, lymphoma or infection. Initial treatment strategy. TECHNIQUE: The patient's fasting blood glucose level, measured by glucometer before injection of FDG, was 85 mg/dL. MD-Gastroview was not given orally. After intravenous administration of FDG, noncontrast CT images were obtained for attenuation correction and for fusion with emission PET images to allow for anatomical localization of PET findings. Emission PET images were then obtained. The area imaged spanned the region from the skull vertex to the proximal thighs. The time from injection of FDG to start of imaging was 76 minutes. The mean liver SUV (reported for quality director purposes) is 1.8. The study was interpreted on the [employer] workstation. COMPARISON: No prior PET CT is available for comparison. Correlation is made to a neck CT dated 04/03/[address] dated 02/16/2017. FINDINGS: There are multiple enlarged cervical lymph nodes along the cervical lizzie stations bilaterally, most prominently in the right level IIa and IIb region. Regions of greatest FDG uptake are seen along the right level IIa and IIb lizzie stations with a maximum SUV of 39.5. In addition to the cervical lymphadenopathy, there are several supraclavicular and axillary lymph nodes demonstrating increased FDG uptake. For reference, a right supraclavicular lymph node measures approximately 1.2 x 1.1 cm with a maximum SUV of 20.7 (image 79/389). A left axillary lymph node measuring 1.6 x 1.3 cm with a maximum SUV of 9.3 (image 102/389). Additional lymph nodes with increased FDG uptake are seen in the axilla, mediastinum and alma bilaterally. Of note, the largest conglomeration of lymph nodes within the chest are seen in the right infrahilar region with a maximum SUV of 8.2. Within the abdomen, there are focal areas of increased FDG uptake throughout the small bowel, which is nonspecific. Focal area of increased uptake within a mesenteric lymph node at image 187/389 demonstrates a maximum SUV of 6.2. Additional scattered periportal, retroperitoneal lymph nodes also demonstrate mild increased FDG uptake. There is a focal area of increased FDG uptake in the left anterior abdomen at image 238/389, which could represent small bowel versus peritoneum, difficult to evaluate on the noncontrast examination and associated motion artifact. There is also mild FDG-uptake along the bilateral pelvic sidewalls representing obturator and iliac chain nodes. A small 1cm right inguinal lymph node demonstrates increased FDG uptake with a maximum SUV of 6.2 (image 288/389). There is diffuse FDG uptake throughout the bone marrow without focal osseous lesion. Additional CT findings: There are scattered pulmonary nodules the lungs bilaterally. For reference, there is a conglomeration of groundglass nodules ranging from 6 mm to 1.2 cm within the right lower lobe that demonstrate mild increased FDG uptake with a maximum SUV of 3.6. Additional pulmonary nodules are seen throughout the lungs bilaterally. For reference, there is a 1.3 x 0.9 cm nodule in the right lower lobe adjacent to a 1.0 x 1.4 cm nodule in the right lower lobe (image 148/389). This lesion does not demonstrate increased FDG uptake. Scattered subcentimeter pulmonary nodules are also seen in the right upper lobe, lingula and left lower lobe. When compared to a CT of the chest dated 02/16/2017, some lesions appear new and some have either resolved or decreased in size. Postsurgical changes of a orthotopic liver transplant are noted. There is a left adrenal nodule with mild FDG uptake with a maximum SUV of 5.3. IMPRESSION: 1. Extensive lymphadenopathy throughout the cervical chain, supraclavicular, axillary, mediastinal, hilar, mesenteric, retroperitoneal and periportal regions with increased FDG uptake, most prominent in the right level IIa/IIb nodes. Differential diagnosis includes posttransplant lymphoproliferative disorder, lymphoma, or diffuse lymphadenopathy from infectious etiology. The right level IIa/b nodes and left axillary nodes appear most amenable to ultrasound guided biopsy. 2. Numerous pulmonary nodules in the lungs bilaterally, some of which appear new and some of which have decreased in size or are no longer apparent when compared to a prior chest CT dated 02/16/2017. Differential diagnosis includes infectious etiology versus post transplant lymphoproliferative disorder. 3. Indeterminate focal areas of FDG uptake throughout the small bowel and possible involvement of the peritoneum as described above. 4. Diffuse FDG uptake throughout the bone marrow could be secondary to therapy, anemia or other etiology for hyperplastic bone marrow. Requested By: DIOGENES CARRERA Dictated By: DAVID JESSICA M.D. on Apr 05 2017 2:07P This document has been electronically signed by: SHAZIA KERR MD on Apr 05 2017 6:39P Addendum Dictated by: REGGIE FERRARI M.D. on Apr 07 2017 11:18A This Addendum has been electronically signed by: SHAZIA KERR MD on Apr 07 2017 12:12P Not In File Miscellaneous IMG PET PROCEDURES Fin al Result * (ABNORMAL) IgA (04/05/2017 5:57 PM CDT) Immunoglobulin A <50.0(L) 70.0 - 400.0 mg/dL [facility] Blood specimen (specimen) 04/05/2017 5:57 PM CDT 04/05/2017 8:49 PM CDT Diogenes Carrera MD LAB BLOOD ORDERABLES Fin al Result Performing Organization Address [facility] de Phone Number [facility] Department [place] [address] * (ABNORMAL) IgA (04/05/2017 5:56 PM CDT) Pathologist [facility] Immunoglobulin A <50.0(L) 70.0 - 400.0 mg/dL [facility] Blood specimen (specimen) 04/05/2017 5:56 PM CDT 04/05/2017 6:11 PM CDT Nury De Oliveira MD LAB BLOOD ORDERABLES Chata l Result Performing Organization Address [facility] de Phone Number [facility] Department [place] [address] * (ABNORMAL) Differential, auto (04/05/2017 5:56 PM CDT) Neutrophil pct 3.9 % [facility] Comment:Consistent with prev ious result Imm gran pct 0.0 % [facility] Lymphocyte pct 58.4 % [facility] Monocyte pct 33.2 % [facility] Eosinophil pct 3.7 % [facility] Basophil pct 0.8 % [facility] Neutrophil abs 0.19(C) 1.70 - 6.50 K/cumm [facility] Comment:Critical result call ed to and read back by AURELIA MUNOZ RN on 04 05 2017 at 1904 to Amy Sanchesrickeyyonas. Imm gran abs 0.00 0.00 - 0.10 K/cumm [facility] Lymphocyte abs 2.85 0.80 - 3.30 K/cumm [facility] Monocyte abs 1.62(H) 0.20 - 0.80 K/cumm [facility] Eosinophil abs 0.18 0.00 - 0.50 K/cumm [facility] Basophil abs 0.04 0.00 - 0.10 K/cumm [facility] Blood specimen (specimen) 04/05/2017 5:56 PM CDT 04/05/2017 6:11 PM CDT Nury De Oliveira MD LAB BLOOD ORDERABLES Chata cuadra Result [facility] Department [place] [address] * (ABNORMAL) CBC with auto differential (04/05/2017 5:56 PM CDT) WBC 4.88 3.80 - 9.90 K/cumm [facility] RBC 4.00(L) 4.30 - 5.80 M/cumm [facility] Hgb 12.9(L) 13.0 - 17.5 g/dL [facility] Hct 36.8(L) 38.9 - 50.3 % [facility] MCV 92.0 81.3 - 96.4 fL [facility] MCH 32.3 27.1 - 33.3 pg [facility] MCHC 35.1 32.3 - 35.7 g/dL [facility] RDW CV 12.7 11.1 - 14.9 % [facility] RDW SD 42.8 35.7 - 48.1 fL [facility] Plt 34(C) 150 - 400 K/cumm [facility] Comment:Inpatient, result no t critical MPV 13.3(H) 9.1 - 12.3 fL [facility] NRBC 0.0 0.0 - 0.2 % [facility] NRBC abs 0.00 0.00 - 0.01 K/cumm [facility] Blood specimen (specimen) 04/05/2017 5:56 PM CDT 04/05/2017 6:11 PM CDT Nury De Oliveira MD LAB BLOOD ORDERABLES Chata l Result Performing Organization Address [facility] Co de Phone Number [facility] Department [place] [address] * Miscellaneous Test Sendout Chemistry (04/05/2017 5:50 PM CDT) Pathologist [facility] Test name IgG, Anti IgA Antibodies [facility] Result 1 Test Name: IgG, ??Anti IgA Antibody Specimen Type: serum Supplemental Comments: n/a Result: 41 Units: U/mL Reference Range: <99 U/mL This test was developed and its performance characteristics determined by the performing reference laboratory in a manner consistent with CLIA requirements. ??This test has not been cleared or approved by the U.S. Food and Drug Administration. [facility] Sendout reference lab Test Performed by: Arden [facility] [employer] [facility] Blood specimen (specimen) 04/05/2017 5:50 PM CDT 04/06/2017 11:30 AM CDT Diogenes Carrera MD LAB BLOOD ORDERABLES Gian mohsen Result - Final Performing Organization Address [facility] Co de Phone Number [facility] Department [place] [address] * Antibody identification (04/05/2017 2:08 PM CDT) Pathologist [facility] Antibody ID 1 Cold Auto Antibody [facility] Blood specimen (specimen) 04/05/2017 2:08 PM CDT 04/05/2017 2:08 PM CDT Nury De Oliveira MD LAB BLOOD BANK TEST ORDER DARCY Final Result Performing Organization Address [facility] de Phone Number [facility] [place] [address] * Nadine De La Cruz virus PCR, quantitative (04/05/2017 12:00 PM CDT) Report Amended Report - Complete: Nadine-De La Cruz Virus PCR, Quant, B = Detected. 9520 copies/mL * ??* ??* ??* ??* ??* ??* ??* ??* ??* ??* ??* ??* ??* ??* ??* ??* ??* ??* ??* Positive Results phoned to and read back by: Dr. Patel ([phone]) on 04/08/2017 13:36:57 This test was developed using an analyte specific reagent. Its performance characteristics were determined by [facility] in a manner consistent with CLIA requirements. This test has not been cleared or approved by the U.S. Food and Drug Administration. [facility] Blood specimen (specimen) 04/05/2017 12:00 PM CDT 04/06/2017 10:09 AM CDT Narrative [facility] - 04/08/2017 1:37 PM CDT Testing performed by: [facility], [place] [address]. Diogenes Carrera MD LAB MICROBIOLOGY - GENER AL ORDERABLES Edited Result - Final Performing Organization Address [facility] [place] [address] * Nadine De La Cruz Virus PCR (04/05/2017 12:00 PM CDT) Report Amended Report - Complete: Positive Results phoned to and read back by: Dr. Patel ([phone]) on 04/08/2017 13:36:57 This test was developed using an analyte specific reagent. Its performance characteristics were determined by [facility] in a manner consistent with CLIA requirements. ?? This test has not been cleared or approved by the U.S. Food and Drug Administration. [facility] Blood specimen (specimen) 04/05/2017 12:00 PM CDT 04/06/2017 10:09 AM CDT Narrative [facility] - 04/08/2017 1:37 PM CDT Testing performed by: [facility], [place] [address]. Diogenes Carrera MD LAB MICROBIOLOGY - GENER AL ORDERABLES Edited Result - Final Performing Organization Address City/[facility] Co de Phone Number [facility] Department [place] [address] * (ABNORMAL) Type and screen (04/05/2017 11:59 AM CDT) Carol, indirect Positive(A) [facility] ABO Rh A Positive [facility] Blood specimen (specimen) 04/05/2017 11:59 AM CDT 04/05/2017 12:39 PM CDT Nury De Oliveira MD LAB BLOOD BANK TEST ORDER DARCY Edited Result - Final Performing Organization Address [facility] Co de Phone Number [facility] Department [place] [address] * (ABNORMAL) Type and screen (04/05/2017 4:56 AM CDT) ABO Rh A Positive [facility] Carol, indirect Positive(A) [facility] Blood specimen (specimen) 04/05/2017 4:56 AM CDT 04/05/2017 6:05 AM CDT Irina Saleem MD LAB BLOOD BANK TEST ORDER DARCY Edited Result - Final Performing Organization Address City/[facility] Co de Phone Number [facility] Department [place] [address] * (ABNORMAL) Manual Differential (04/05/2017 4:56 AM CDT) [facility] Neutrophils 0.0 % [facility] Lymphocytes 50.5 % [facility] Monos 34.0 % [facility] Eosinophils 7.3 % [facility] Basophil pct 0.9 % [facility] WBC counted 109 Cells [facility] Variant lymph pct 7.3 % [facility] Neutrophil abs 0.00(C) 1.70 - 6.50 K/cumm [facility] Comment:Critical result call ed to and read back by HAY CERVANTES RN on 04 05 2017 at 0744 to Tosha Berman. Lymphs, abs 3.12 0.80 - 3.30 K/cumm [facility] Monos, abs 1.83(H) 0.20 - 0.80 K/cumm [facility] Eosinophils, abs 0.39 0.00 - 0.50 K/cumm [facility] Basophils, abs 0.05 0.00 - 0.10 K/cumm [facility] Immature granulocyte, abs 0.00 0.00 - 0.10 K/cumm [facility] Blood specimen (specimen) 04/05/2017 4:56 AM CDT 04/05/2017 5:59 AM CDT us Irina Saleem MD LAB BLOOD ORDERABLES Chata l Result [facility] Department [place] [address] * (ABNORMAL) Basic metabolic panel (04/05/2017 4:56 AM CDT) [facility] Sodium 139 135 - 145 mmol/L [facility] Potassium, pl 4.3 3.3 - 4.9 mmol/L [facility] Chloride 106 97 - 110 mmol/L [facility] Comment:fixed result mapping CO2 24 22 - 32 mmol/L [facility] BUN 7(L) 8 - 25 mg/dL [facility] Glucose 100 70 - 199 mg/dL [facility] Creatinine 0.77(L) 0.80 - 1.30 mg/dL [facility] Calcium 8.6 8.5 - 10.3 mg/dL [facility] Anion gap 9 2 - 15 mmol/L [facility] Blood specimen (specimen) 04/05/2017 4:56 AM CDT 04/05/2017 5:54 AM CDT Irina Saleem MD LAB BLOOD ORDERABLES Chata l Result [facility] Department [place] [address] * (ABNORMAL) CBC with auto differential (04/05/2017 4:56 AM CDT) Pathologist [facility] WBC 5.39 3.80 - 9.90 K/cumm [facility] RBC 3.83(L) 4.30 - 5.80 M/cumm [facility] Hgb 12.2(L) 13.0 - 17.5 g/dL [facility] Hct 34.7(L) 38.9 - 50.3 % [facility] MCV 90.6 81.3 - 96.4 fL [facility] MCH 31.9 27.1 - 33.3 pg [facility] MCHC 35.2 32.3 - 35.7 g/dL [facility] RDW CV 12.7 11.1 - 14.9 % [facility] RDW SD 42.3 35.7 - 48.1 fL [facility] Plt 4(C) 150 - 400 K/cumm [facility] Comment:No clot detected in sample.. Critical result called to and read back by HAY CERVANTES RN on 04 05 2017 at 0610 to Saleem Wills. MPV Not Measured 9.1 - 12.3 fL [facility] NRBC 0.0 0.0 - 0.2 % [facility] NRBC abs 0.00 0.00 - 0.01 K/cumm [facility] Blood specimen (specimen) 04/05/2017 4:56 AM CDT 04/05/2017 5:54 AM CDT Irina Saleem MD LAB BLOOD ORDERABLES Edit ed Result - Final Performing Organization Address City/[facility]/ZIP Co de Phone Number [facility] Department [place] [address] * Histoplasma antigen (04/04/2017 6:28 PM CDT) Report Direct Antigen Testing - Final: Negative [...] developed and its performance characteristics determined by [employer] ??It has not been cleared or approved by the FDA; however, FDA clearance or approval is not currently required for clinical use. The results are not intended to be used as the sole means for clinical diagnosis or patient management decisions. [facility] [facility] Urine 04/04/2017 6:28 PM CDT 04/04/2017 8:22 PM CDT Narrative [facility] - 04/05/2017 12:23 PM CDT Testing Performed by: [employer] [place] [address]. Irina Saleem MD LAB MICROBIOLOGY - GENERA L ORDERABLES Final Result Performing Organization Address [facility]/ZIP Co de Phone Number [facility] Department [place] [address] * Aspergillus galactomannan antigen (04/04/2017 6:03 PM CDT) Report Direct Antigen Testing - Final: Negative for: Aspergillus Galactomannan Antigen Index: Less than 0.500 [facility] Blood specimen (specimen) 04/04/2017 6:03 PM CDT 04/04/2017 6:48 PM CDT Narrative [facility] - 04/04/2017 6:48 PM CDT Interpretive Data Sera with an index of less than 0.5 are considered to be negative. Sera with an index of greater than or equal to 0.5 are considered to be positive. ??Testing performed by: [facility] Dpt of Lab Med and Pathology, [address] [place] [address], ??[place] [address]. ??Local Az Truck Driver: ??Tolu Christiansen M.D. Current interpretive data was last revised on 07. Irina Saleem MD LAB MICROBIOLOGY - GENERA L ORDERABLES Final Result Performing Organization Address [facility] Co de Phone Number [facility] Department [place] [address] * Blastomyces antibodies (04/04/2017 6:03 PM CDT) Pathologist [facility] Blastomyces, Immunodiffusion Negative Negative [facility] Comment: A single negative immunodiffusion (ID) result does not exclude the diagnosis of blastomycosis. ??Repeat testing on a new sample in 7-14 days if clinically indicated. Test Performed by: [address] [address] Blood specimen (specimen) 04/04/2017 6:03 PM CDT 04/04/2017 9:17 PM CDT Irina Saleem MD LAB BLOOD ORDERABLES Chata l Result Performing Organization Address City/[facility] Co de Phone Number [facility] [place] [address] * Bartonella anitbody panel (04/04/2017 6:03 PM CDT) B Henselae, IgG <1:128 <1:128 titer [facility] B Henselae, IgM <1:20 <1:20 titer [facility] B. Mata, IgG <1:128 <1:128 titer [facility] B. Mata, IgM <1:20 <1:20 titer [facility] Comment: ADDITIONAL INFORMATION This test was developed using an analyte specific reagent. Its performance characteristics were determined by [facility] in a manner consistent with CLIA requirements. This test has not been cleared or approved by the U.S. Food and Drug Administration. Test Performed by: [address] [address] Blood specimen (specimen) 04/04/2017 6:03 PM CDT 04/04/2017 9:16 PM CDT Irina Saleem MD LAB MICROBIOLOGY - GENERA L ORDERABLES Final Result Performing Organization Address City/[facility] Co de Phone Number [facility] [place] [address] * Toxoplasma antibodies, IgG and IgM (04/04/2017 6:03 PM CDT) Toxoplasma IgG Negative Negative [facility] Comment: Interpretive Data Negative - ??No detectable antibody. Equivocal - Presence of detectable antibody cannot be determined. Positive - ??Detectable level of antibody present. Current interpretive data was last revised on 2001. Toxoplasma IgM Negative Negative [facility] Blood specimen (specimen) 04/04/2017 6:03 PM CDT 04/04/2017 6:17 PM CDT Irina Saleem MD LAB MICROBIOLOGY - GENERA L ORDERABLES Final Result Performing Organization Address City/[facility]/ZIP Co de Phone Number [facility] [place] [address] * Mycobacteriology (AFB) blood culture (04/04/2017 6:03 PM CDT) Report Final Report: No growth of acid-fast bacilli [facility] Blood specimen (specimen) 04/04/2017 6:03 PM CDT 04/04/2017 7:09 PM CDT Narrative [facility] - 04/06/2017 8:04 AM CDT Irina Saleem MD LAB MICROBIOLOGY - GENERA L ORDERABLES Final Result Performing Organization Address City/[facility]/ZIP Co de Phone Number [facility] [place] [address] * Cryptococcus antigen (04/04/2017 6:03 PM CDT) Report Direct Antigen Testing - Final: Negative for: Cryptococcus neoformans/ Cryptococcus gattii antigen. [facility] Blood specimen (specimen) 04/04/2017 6:03 PM CDT 04/04/2017 6:49 PM CDT Narrative [facility] - 04/04/2017 6:49 PM CDT The cryptococcal antigen test was performed using [...] negatives. Current interpretive data last revised 2016. Irina Saleem MD LAB MICROBIOLOGY - GENERA L ORDERABLES Final Result Performing Organization Address City/[facility]/ZIP Co de Phone Number [facility] [place] [address] * Filamentous fungus culture, blood (04/04/2017 6:03 PM CDT) Report Final Report: No growth of fungus [facility] Blood specimen (specimen) 04/04/2017 6:03 PM CDT 04/04/2017 7:09 PM CDT Narrative [facility] - 04/05/2017 8:22 AM CDT Irina Saleem MD LAB MICROBIOLOGY - GENERA L ORDERABLES Final Result Performing Organization Address [facility] Co de Phone Number [facility] [place] [address] * Blood culture (04/04/2017 6:03 PM CDT) Report Final Report: No growth [facility] Blood specimen (specimen) (Antecubital, left) 04/04/2017 6:03 PM CDT 04/04/2017 7:06 PM CDT Narrative [facility] - 04/05/2017 4:56 AM CDT Blood cultures are incubated for five days on a continuously monitored blood culture system. ??The first report of a negative culture is issued within 24 hours of receipt of the specimen in the laboratory. ??Positive culture results are reported as soon as they are detected. ??For blood cultures with gram-positive cocci, a rapid molecular test for organism identification may be performed using the [employer] Nanosphere Gram Positive Blood Culture Assay. ??The Nanosphere assay detects microbial DNA in positive blood culture broth via hybridization of target DNA to capture oligonucleotides on a microarray. ??This assay has been cleared by the [place] Food and Drug Administration and its performance characteristics have been verified by the [facility]. Current Interpretive Data was last revised on 2014. Irina Saleem MD LAB MICROBIOLOGY - GENERA L ORDERABLES Final Result Performing Organization Address City/[facility]/ZIP Co de Phone Number [facility] [place] [address] * HIV-1 and HIV-2 antibody with P24 antigen immunoassay (04/04/2017 6:03 PM CDT) [facility] HIV 1/2 ab + p24 ag Nonreactive Nonreactive [facility] Comment:Negative for HIV-1 a ntigen and HIV-1/ HIV-2 antibodies. No laboratory evidence of HIV infection. If acute HIV infection is suspected, consider testing for HIV-1 RNA. Blood specimen (specimen) 04/04/2017 6:03 PM CDT 04/04/2017 6:18 PM CDT us Irina Saleem MD LAB MICROBIOLOGY - [facility] L ORDERABLES Final Result [facility] Department [place] [address] * (ABNORMAL) Manual Differential (04/04/2017 6:08 AM CDT) [facility] Neutrophils 0.0 % [facility] Lymphocytes 49.1 % [facility] Monos 42.6 % [facility] Eosinophils 7.4 % [facility] Basophil pct 0.9 % [facility] WBC counted 108 Cells [facility] Neutrophil abs 0.00(C) 1.70 - 6.50 K/cumm [facility] Comment:Critical result call ed to and read back by CRITICAL CALLED TO AND READ BACK [facility] on 04 04 2017 at 0841 to Ruth Ann [place]. Lymphs, abs 2.63 0.80 - 3.30 K/cumm [facility] Monos, abs 2.28(H) 0.20 - 0.80 K/cumm [facility] Eosinophils, abs 0.40 0.00 - 0.50 K/cumm [facility] Basophils, abs 0.05 0.00 - 0.10 K/cumm [facility] Immature granulocyte, abs 0.00 0.00 - 0.10 K/cumm [facility] Blood specimen (specimen) 04/04/2017 6:08 AM CDT 04/04/2017 6:57 AM CDT Irina Saleem MD LAB BLOOD ORDERABLES Chata l Result Performing Organization Address City/[facility] Co de Phone Number [facility] [place] [address] * Reticulocytes (04/04/2017 6:08 AM CDT) Retics 1.28 0.50 - 1.80 % [facility] Retics, absolute 0.049 0.020 - 0.087 M/cumm [facility] Blood specimen (specimen) 04/04/2017 6:08 AM CDT 04/04/2017 6:52 AM CDT Irina Saleem MD LAB BLOOD ORDERABLES Chata l Result Performing Organization Address [facility] de Phone Number [facility] [place] [address] * (ABNORMAL) Iron profile (04/04/2017 6:08 AM CDT) [facility] Iron 16(L) 50 - 150 mcg/dL [facility] UIBC 186 112 - 347 mcg/dL [facility] TIBC 202(L) 250 - 400 mcg/dL [facility] Transferrin saturation 8(L) 20 - 50 % [facility] Blood specimen (specimen) 04/04/2017 6:08 AM CDT 04/04/2017 6:52 AM CDT Result [facility] Irina Saleem MD LAB BLOOD ORDERABLES Chata l Result Performing Organization Address City/[facility] [place] [address] * Ferritin (04/04/2017 6:08 AM CDT) Ferritin 366 30 - 400 ng/mL [facility] Blood specimen (specimen) 04/04/2017 6:08 AM CDT 04/04/2017 6:52 AM CDT Irina Saleem MD LAB BLOOD ORDERABLES Edit ed Result - Final Performing Organization Address City/[facility]/ZIP Co de Phone Number [facility] Department [place] [address] * (ABNORMAL) Haptoglobin (04/04/2017 6:08 AM CDT) [facility] Haptoglobin 238.0(H) 30.0 - 200.0 mg/dL [facility] Blood specimen (specimen) 04/04/2017 6:08 AM CDT 04/04/2017 6:52 AM CDT Irina Saleem MD LAB BLOOD ORDERABLES Edit ed Result - Final Performing Organization Address City/[facility] Co de Phone Number [facility] Department [place] [address] * (ABNORMAL) CBC with auto differential (04/04/2017 6:08 AM CDT) [facility] WBC 5.35 3.80 - 9.90 K/cumm [facility] RBC 3.80(L) 4.30 - 5.80 M/cumm [facility] Hgb 11.9(L) 13.0 - 17.5 g/dL [facility] Hct 35.2(L) 38.9 - 50.3 % [facility] MCV 92.6 81.3 - 96.4 fL [facility] MCH 31.3 27.1 - 33.3 pg [facility] MCHC 33.8 32.3 - 35.7 g/dL [facility] RDW CV 13.1 11.1 - 14.9 % [facility] RDW SD 44.9 35.7 - 48.1 fL [facility] Plt 12(C) 150 - 400 K/cumm [facility] Comment:Critical called to a nd read back by Rad Urias rn at 0725.. Critical result called to and read back by CRITICAL CALLED TO AND READ BACK BY CHRI on 04 04 2017 at 0841 to Ruth Ann Vinnie. MPV Not Measured 9.1 - 12.3 fL [facility] NRBC 0.0 0.0 - 0.2 % [facility] NRBC abs 0.00 0.00 - 0.01 K/cumm [facility] Blood specimen (specimen) 04/04/2017 6:08 AM CDT 04/04/2017 6:52 AM CDT us Irina Saleem MD LAB BLOOD ORDERABLES Edit ed Result - Final [facility] Department [place] [address] * CT Neck Soft Tissue W Contrast (04/03/2017 2:15 PM CDT) Anatomical Region Laterality Modality Head and Neck N/A Computed Tomogra phy 04/03/2017 2:15 PM CDT Narrative 04/03/2017 2:15 PM CDT HEIDI GONZALEZ M.D. SYMONE RUBY M.D. FINAL REPORT The radiology attending physician has personally reviewed this study, and has reviewed and/or edited this written report and agrees with it. ACC# ??Date Time ??Exam [id number] Apr 03, 2017 09:15:[address] Neck SoftTissue w cont EXAMINATION: ?? CT of the neck with contrast HISTORY: Cervical lymphadenopathy. TECHNIQUE: CT of the neck was performed according to standard protocol after the uneventful administration of intravenous contrast. Contrast information: 90 mL Optiray-350 COMPARISON: Neck CT dated 03/30/2015. FINDINGS: Multiple enlarged enhancing cervical lymph nodes are noted along all of the cervical lizzie stations. As compared with prior neck CT dated 03/30/2015, there has been interval increase in size of the lymph nodes. Enlarged mediastinal lymph nodes are seen. A few small pulmonary nodules are seen in visualized both upper lobes. The muscles of the neck are normal. Vessels of the neck demonstrate normal course and caliber. Fascial planes are preserved and the deep spaces of the neck are normal. The visualized airway is widely patent. The base of the skull and the temporal bones are normal. Limited views of the brain including the cerebellum and brainstem are normal. The limited view of the [place] is unremarkable. The visualized portions of the orbits are normal. The spinal canal is normal in caliber. Intervertebral disk heights are normal. Neural foramina are normal. IMPRESSION: ?? 1. Multiple enlarged and heterogenously enhancing bilateral cervical lymph nodes. As compared with prior neck CT dated 03/30/2015, there has been interval increase in size of these lymph nodes. Differential diagnosis includes atypical infection such as fungal and atypical mycobacterial infection versus post transplant lymphoproliferative disorder. 2. Enlarged mediastinal lymph nodes. 3. A few small pulmonary nodules in visualized both upper lobes, likely infectious/inflammatory in etiology. These appear new as compared with prior chest CT dated 02/16/2017. Requested By: IRINA SALEEM M.D. Dictated By: ?? SYMONE RUBY M.D. ??on Apr ??2016 10:29A This document has been electronically signed by: HEIDI GONZALEZ M.D. on Apr?2016 ??3:39P [id number] Procedure Note Miscellaneous, Not In File / Provider, MD Dl - 04/03/2017 HEIDI GONZALEZ M.D. SYMONE RUBY M.D. FINAL REPORT The radiology attending physician has personally reviewed this study, and has reviewed and/or edited this written report and agrees with it. ACC# Date Time Exam [id number] Apr 03, 2017 09:15:[id number] Neck SoftTissue w cont EXAMINATION: CT of the neck with contrast HISTORY: Cervical lymphadenopathy. TECHNIQUE: CT of the neck was performed according to standard protocol after the uneventful administration of intravenous contrast. Contrast information: 90 mL Optiray-350 COMPARISON: Neck CT dated 03/30/2015. FINDINGS: Multiple enlarged enhancing cervical lymph nodes are noted along all of the cervical lizzie stations. As compared with prior neck CT dated 03/30/2015, there has been interval increase in size of the lymph nodes. Enlarged mediastinal lymph nodes are seen. A few small pulmonary nodules are seen in visualized both upper lobes. The muscles of the neck are normal. Vessels of the neck demonstrate normal course and caliber. Fascial planes are preserved and the deep spaces of the neck are normal. The visualized airway is widely patent. The base of the skull and the temporal bones are normal. Limited views of the brain including the cerebellum and brainstem are normal. The limited view of the [place] is unremarkable. The visualized portions of the orbits are normal. The spinal canal is normal in caliber. Intervertebral disk heights are normal. Neural foramina are normal. IMPRESSION: 1. Multiple enlarged and heterogenously enhancing bilateral cervical lymph nodes. As compared with prior neck CT dated 03/30/2015, there has been interval increase in size of these lymph nodes. Differential diagnosis includes atypical infection such as fungal and atypical mycobacterial infection versus post transplant lymphoproliferative disorder. 2. Enlarged mediastinal lymph nodes. 3. A few small pulmonary nodules in visualized both upper lobes, likely infectious/inflammatory in etiology. These appear new as compared with prior chest CT dated 02/16/2017. Requested By: IRINA SALEME M.D. Dictated By: SYMONE RUBY M.D. on Apr 03 2017 10:29A This document has been electronically signed by: HEIDI GONZALEZ M.D. on Apr 03 2017 3:39P [id number] us Not In File Miscellaneous G CT PROCEDURES Chata l Result * (ABNORMAL) Lipid panel (04/03/2017 6:35 AM CDT) Pathologist [facility] Cholesterol 92 30 - 200 mg/dL [facility] Comment: Interpretive Data Desirable: ?<200 mg/dL Borderline high: ??200-239 mg/dL High: ? > or = 240 mg/dL Literature Reference: National Cholesterol Education Program (NCEP) Expert Panel on Detection, Evaluation, and Treatment of High Blood Cholesterol in Adults (Adult Treatment Panel III). ??Circulation 2004; 110:227. Current interpretive data was last revised on 2015. Triglycerides 83 0 - 150 mg/dL [facility] Comment: Interpretive Data Desirable: ? < 150 mg/dL Borderline High: ? 150 - 199 mg/dL High: ?200 - 499 mg/dL Very High: ? > or = 499 mg/dL Literature Reference: See Cholesterol Current interpretive data was last revised on 2015. HDL 18(L) >=40 mg/dL [facility] Comment: Interpretive Data Less than 40 mg/dL - low; A major risk factor for heart disease. Greater than or equal to 60 mg/dL - High; ??considered protective of heart disease. Literature Reference: See Cholesterol Current interpretive data was last revised on 2015. LDL, calculated 57 10 - 129 mg/dL [facility] Comment: Interpretive Data Optimal: ? < 100 mg/dL Near Optimal: ?100 - 129 mg/dL Borderline High: ?? 130 - 159 mg/dL High: ?160 - 189 mg/dL Very high: ? > or = 190 mg/dL Literature Reference: See Cholesterol Current interpretive data was last revised on 2015. Non-HDL Cholesterol 74 mg/dL [facility] Comment: Interpretive Data When triglycerides are >200 mg/dL, non-HDL C is a secondary target of therapy, with a goal 30 mg/dL higher than the identified LDL-C goal. Reference: ??See Cholesterol Reference. Current interpretive data was last revised 2015. Blood specimen (specimen) 04/03/2017 6:35 AM CDT 04/03/2017 8:06 AM CDT us Notinfile Unknown LAB BLOOD ORDERABLES Final Res ult [facility] Department [place] [address] * CMV DNA QN, PCR (04/03/2017 6:35 AM CDT) CMV DNA Detected [facility] Comment: Interpretive Data: The quantifiable range of this assay is 137 IUnits/mL to 9,100,000 IUnits/mL (2.14 log IUnits/mL to 6.96 log IUnits/mL). Testing was performed by the [employer] AmpliPrep/NIA TaqMan CMV Test ([employer] Testing performed at [facility] Current interpretive data was last revised on 17. CMV DNA IU/mL <137 IUnits/mL [facility] CMV DNA log IU/mL <2.14 log IUnits/mL [facility] Blood specimen (specimen) 04/03/2017 6:35 AM CDT 04/03/2017 10:13 AM CDT us Notinfile Unknown LAB MICROBIOLOGY - GENERAL ORD ERABLES Final Result [facility] Department [place] [address] * (ABNORMAL) Nadine-De La Cruz Virus acute infection IgM (04/03/2017 6:35 AM CDT) EBV VCA IgM Positive( A) Negative [facility] Comment: Interpretive Data Results ? Interpretation Negative ?No detectable IgM antibody to EBV-VCA. ?A negative result indicates no current ?infection with EBV. If clinical suspicion ?of acute EBV infection is present, testing ?should be repeated after one week. Equivocal ? If the sample is equivocal, recommend ?repeating the test with a second sample ?within one week. Positive ?A positive test result indicates a current ?or reactivated infection with EBV. Interpretive data revised 01/26/2017. Blood specimen (specimen) 04/03/2017 6:35 AM CDT 04/03/2017 8:06 AM CDT us Notinfile Unknown LAB BLOOD ORDERABLES Final Res ult Performing Organization Address [facility] de Phone Number [facility] Department [place] [address] * Tacrolimus level, random (04/03/2017 6:35 AM CDT) Pathologist [facility] Tacrolimus, random 4.5 ng/mL [facility] Comment: Interpretive Data Testing performed by liquid chromatography-tandem mass spectrometry (LC- MS/MS).This test was developed using an analyte specific reagent. ?? Its performance characteristics were determined by the [facility] in a manner consistent with CLIA requirements. ??This test has not been cleared or approved by the U.S. Food and Drug Administration. Current interpretive data was last revised on 2016. Blood specimen (specimen) 04/03/2017 6:35 AM CDT 04/03/2017 8:05 AM CDT us Notinfile Unknown LAB BLOOD ORDERABLES Final Res ult Performing Organization Address [facility] de Phone Number [facility] Department [place] [address] * Hepatitis panel, acute (04/03/2017 6:35 AM CDT) Pathologist [facility] Hep A IgM Nonreactive Nonreactive [facility] Comment: Interpretive Data If test is reported as GRAYZONE, new sample should be drawn in two weeks for testing. Current interpretive data was last revised on 2016. Hep B core IgM Nonreactive Nonreactive [facility] Comment: Interpretive Data If test is reported as GRAYZONE, new sample should be drawn for testing. Current interpretive data was last revised on 2016. Hep C Ab Nonreactive Nonreactive [facility] Comment: Interpretive Data Positive results should be confirmed by a molecular method. If positive, a second separately collected sample should be submitted for Hepatitis C Virus (HCV) RNA Detection and Quantitation by Real-Time Reverse City Library Director-PCR (RT-PCR). Current interpretive data was last revised on 2016. HepBsAg Nonreactive Nonreactive [facility] Blood specimen (specimen) 04/03/2017 6:35 AM CDT 04/03/2017 8:06 AM CDT us Notinfile Unknown LAB MICROBIOLOGY - GENERAL ORD ERABLES Edited Result - Final Performing Organization Address City/[facility]/ZIP Co de Phone Number [facility] Department [place] [address] * (ABNORMAL) Manual Differential (04/03/2017 6:35 AM CDT) Neutrophils 0.0 % [facility] Lymphocytes 41.6 % [facility] Monos 42.5 % [facility] Eosinophils 6.2 % [facility] WBC counted 113 Cells [facility] Variant lymph pct 9.7 % [facility] Neutrophil abs 0.00(C) 1.70 - 6.50 K/cumm [facility] Comment:Critical result call ed to and read back by BRENDA HORTON RN on 04 03 2017 at 0904 to Kay Dinh. called brenda munoz rn @ [phone] jm Lymphs, abs 2.41 0.80 - 3.30 K/cumm [facility] Monos, abs 2.00(H) 0.20 - 0.80 K/cumm [facility] Eosinophils, abs 0.29 0.00 - 0.50 K/cumm [facility] Immature granulocyte, abs 0.00 0.00 - 0.10 K/cumm [facility] Blood specimen (specimen) 04/03/2017 6:35 AM CDT 04/03/2017 8:09 AM CDT us Notinfile Unknown LAB BLOOD ORDERABLES Final Res ult Performing Organization Address City/[facility]/ZIP Co de Phone Number [facility] Department [place] [address] * (ABNORMAL) Hepatic function panel (04/03/2017 6:35 AM CDT) AST 30 10 - 50 Units/L [facility] Comment:Hemolyzed; result ma y be falsely elevated. ALT 30 7 - 55 Units/L [facility] Alk phos 136(H) 40 - 130 Units/L [facility] Bilirubin, total 0.4 0.1 - 1.2 mg/dL [facility] Bilirubin, direct <0.2 0.1 - 0.3 mg/dL [facility] Protein, pl 5.4(L) 6.5 - 8.5 g/dL [facility] Albumin 2.7(L) 3.5 - 5.0 g/dL [facility] Blood specimen (specimen) 04/03/2017 6:35 AM CDT 04/03/2017 8:05 AM CDT us Notinfile Unknown LAB BLOOD ORDERABLES Final Res ult [facility] Department [place] [address] * Uric acid (04/03/2017 6:35 AM CDT) [facility] Uric acid 4.3 3.0 - 8.0 mg/dL [facility] Blood specimen (specimen) 04/03/2017 6:35 AM CDT 04/03/2017 8:05 AM CDT us Notinfile Unknown LAB BLOOD ORDERABLES Final Res ult [facility] Department [place] [address] * (ABNORMAL) Lactate dehydrogenase (LD) (04/03/2017 6:35 AM CDT) Pathologist [facility] Lactate dehydrogenase (LDH) 257(H) 100 - 250 Units/L [facility] Comment:Hemolyzed; result ma y be falsely elevated. Blood specimen (specimen) 04/03/2017 6:35 AM CDT 04/03/2017 8:05 AM CDT us Notinfile Unknown LAB BLOOD ORDERABLES Final Res ult Performing Organization Address City/[facility] Co de Phone Number [facility] [place] [address] * Extra slide preparation (04/03/2017 6:35 AM CDT) Pathologist [facility] Extra slide prep Test Completed [facility] Blood specimen (specimen) 04/03/2017 6:35 AM CDT 04/03/2017 8:06 AM CDT us Notinfile Unknown LAB BLOOD ORDERABLES Final Res ult Performing Organization Address [facility] de Phone Number [facility] [place] [address] * (ABNORMAL) CBC with auto differential (04/03/2017 6:35 AM CDT) [facility] WBC 4.70 3.80 - 9.90 K/cumm [facility] RBC 3.59(L) 4.30 - 5.80 M/cumm [facility] Hgb 11.6(L) 13.0 - 17.5 g/dL [facility] Hct 32.9(L) 38.9 - 50.3 % [facility] MCV 91.6 81.3 - 96.4 fL [facility] MCH 32.3 27.1 - 33.3 pg [facility] MCHC 35.3 32.3 - 35.7 g/dL [facility] RDW CV 13.0 11.1 - 14.9 % [facility] RDW SD 43.4 35.7 - 48.1 fL [facility] Plt 20(C) 150 - 400 K/cumm [facility] Comment:Inpatient, result no t critical MPV 14.6(H) 9.1 - 12.3 fL [facility] NRBC 0.0 0.0 - 0.2 % [facility] NRBC abs 0.00 0.00 - 0.01 K/cumm [facility] Blood specimen (specimen) 04/03/2017 6:35 AM CDT 04/03/2017 8:05 AM CDT us Notinfile Unknown LAB BLOOD ORDERABLES Edited Re sult - Final Performing Organization Address City/[facility]/ZIP Co de Phone Number [facility] Department [place] [address] * Influenza A/B PCR (04/03/2017 1:43 AM CDT) Report Final Report: Flu A target RNA not detected Flu B target RNA not detected RSV target RNA not detected [facility] Nasopharyngeal 04/03/2017 1: 43 AM CDT 04/03/2017 3:22 AM CDT Narrative [facility] - 04/03/2017 3:23 AM CDT This test is performed using the [employer] Xpert Flu/RSV Assay. ??This is a multiplex, real-time reverse transcriptase PCR assay that detects influenza A, influenza B, and respiratory syncytial virus RNA. ??This assay has been cleared by the [place] Food and Drug Administration, and its performance characteristics have been verified by the [facility]. Current interpretive data was last revised on 2015. us Notinfile Unknown LAB MICROBIOLOGY - GENERAL ORD ERABLES Final Result Performing Organization Address [facility] Co de Phone Number [facility] Department [place] [address] * Blood culture (04/02/2017 10:32 PM CDT) Report Final Report: No growth [facility] Blood specimen (specimen) (Antecubital, right) 04/02/2017 10:32 PM CDT 04/02/2017 11:46 PM CDT Narrative [facility] - 04/03/2017 6:41 AM CDT Blood cultures are incubated for five days on a continuously monitored blood culture system. ??The first report of a negative culture is issued within 24 hours of receipt of the specimen in the laboratory. ??Positive culture results are reported as soon as they are detected. ??For blood cultures with gram-positive cocci, a rapid molecular test for organism identification may be performed using the [employer] Nanosphere Gram Positive Blood Culture Assay. ??The Nanosphere assay detects microbial DNA in positive blood culture broth via hybridization of target DNA to capture oligonucleotides on a microarray. ??This assay has been cleared by the [place] Food and Drug Administration and its performance characteristics have been verified by the [facility]. Current Interpretive Data was last revised on 2014. Cresencio Miner MD LAB MICROBIOLOGY - GENERAL ORDER DARCY Final Result [facility] Department [place] [address] * Blood culture (04/02/2017 10:32 PM CDT) Report Final Report: No growth [facility] Blood specimen (specimen) (Forearm, right) 04/02/2017 10:32 PM CDT 04/02/2017 11:46 PM CDT [facility] - 04/03/2017 6:41 AM CDT Blood cultures are incubated for five days on a continuously monitored blood culture system. ??The first report of a negative culture is issued within 24 hours of receipt of the specimen in the laboratory. ??Positive culture results are reported as soon as they are detected. ??For blood cultures with gram-positive cocci, a rapid molecular test for organism identification may be performed using the [employer] Nanosphere Gram Positive Blood Culture Assay. ??The Nanosphere assay detects microbial DNA in positive blood culture broth via hybridization of target DNA to capture oligonucleotides on a microarray. ??This assay has been cleared by the [place] Food and Drug Administration and its performance characteristics have been verified by the [facility]. Current Interpretive Data was last revised on 2014. us Cresencio Miner MD LAB MICROBIOLOGY - GENERAL ORDER DARCY Final Result [facility] Department [place] [address] * (ABNORMAL) Manual Differential (04/02/2017 7:21 PM CDT) Neutrophils 0.0 % [facility] Lymphocytes 41.7 % [facility] Monos 43.5 % [facility] Eosinophils 0.9 % [facility] Basophil pct 0.9 % [facility] WBC counted 115 Cells [facility] Variant lymph pct 13.0 % [facility] Neutrophil abs 0.00(C) 1.70 - 6.50 K/cumm [facility] Comment:Critical result call ed to and read back by ORTEGA BROWN (RN) on 04 02 2017 at 2155 to Eleuterio Ashraf. Called at 5 on [id number] by LATriston. Lymphs, abs 3.00 0.80 - 3.30 K/cumm [facility] Monos, abs 2.39(H) 0.20 - 0.80 K/cumm [facility] Eosinophils, abs 0.05 0.00 - 0.50 K/cumm [facility] Basophils, abs 0.05 0.00 - 0.10 K/cumm [facility] Immature granulocyte, abs 0.00 0.00 - 0.10 K/cumm [facility] Blood specimen (specimen) 04/02/2017 7:21 PM CDT 04/02/2017 8:51 PM CDT us Hans Najera Jr., MD LAB BLOOD ORDERABLES F inal Result [facility] Department [place] [address] * Blood potassium, arterial (04/02/2017 7:21 PM CDT) Senior Staff Review Specimen Blood [facility] Senior Staff Review Review Done [facility] Comment:Reviewed by senior celi gutierrez. BEW 04/02/2017. Blood specimen (specimen) 04/02/2017 7:21 PM CDT 04/02/2017 8:51 PM CDT Hans Najera Jr., MD LAB BLOOD ORDERABLES E dited Result - Final [facility] Department [place] [address] * (ABNORMAL) CBC with auto differential (04/02/2017 7:21 PM CDT) [facility] WBC 5.49 3.80 - 9.90 K/cumm [facility] RBC 3.78(L) 4.30 - 5.80 M/cumm [facility] Hgb 12.2(L) 13.0 - 17.5 g/dL [facility] Hct 34.6(L) 38.9 - 50.3 % [facility] MCV 91.5 81.3 - 96.4 fL [facility] MCH 32.3 27.1 - 33.3 pg [facility] MCHC 35.3 32.3 - 35.7 g/dL [facility] RDW CV 13.1 11.1 - 14.9 % [facility] RDW SD 43.8 35.7 - 48.1 fL [facility] Plt 23(C) 150 - 400 K/cumm [facility] Comment:No clot detected in sample. Verified by peripheral smear.. Critical result called to and read back by ORTEGA BROWN (RN) on 04 02 2017 at 2044 to [facility]. MPV Not Measured 9.1 - 12.3 fL [facility] NRBC 0.0 0.0 - 0.2 % [facility] NRBC abs 0.00 0.00 - 0.01 K/cumm [facility] Blood specimen (specimen) 04/02/2017 7:21 PM CDT 04/02/2017 8:51 PM CDT Hans Najera Jr., MD LAB BLOOD ORDERABLES E dited Result - Final Performing Organization Address [facility] Co de Phone Number [facility] [place] [address] * Basic metabolic panel (04/02/2017 7:21 PM CDT) Sodium 141 135 - 145 mmol/L [facility] Potassium, pl 4.3 3.3 - 4.9 mmol/L [facility] Chloride 104 97 - 110 mmol/L [facility] Comment:fixed result mapping CO2 26 22 - 32 mmol/L [facility] BUN 13 8 - 25 mg/dL [facility] Glucose 81 70 - 199 mg/dL [facility] Creatinine 0.98 0.80 - 1.30 mg/dL [facility] Calcium 8.8 8.5 - 10.3 mg/dL [facility] Anion gap 11 2 - 15 mmol/L [facility] Blood specimen (specimen) 04/02/2017 7:21 PM CDT 04/02/2017 7:27 PM CDT Hans Najera Jr., MD LAB BLOOD ORDERABLES E dited Result - Final Performing Organization Address [facility] Co de Phone Number [facility] [place] [address] * DISCHARGE LABORATORY CUMULATIVE REPORT (04/02/2017) Provider Scanning LAB BLOOD ORDERABLES Edited Re sult - Final documented in this encounter Visit Diagnoses Not on filedocumented in this encounter Additional Health Concerns Infection Onset Date Last Indicated Resolved Time [facility] Comment:Resolved - Flag applied in error. 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
--- OUTSIDE RECORDS SUMMARY | 2024-10-28 06:29 | XMS_ITS | Encounter Summary ---
Author Organization [facility] Facility Care Team Providers Care Real Estate Agent/Broker Name Role Phone Unavailable Primary Care Provider Unavailabl e Encounter Details Date Type Department Care Team (Late st Contact Info) Description 02/15/2014 - 10/31/2014 11:59 PM IN FLIGHT REFUELING OPERATOR Hospital Encounter [facility] CLINCONV Other neutropenia (CMS/HCC) (HCC) Social History Tobacco Use Types Packs/Day Years Used Date Smoking Tobacco: Never Assessed Sex and Gender Information Value Date Recorded Sex Assigned at Not on file Legal Sex Male 6:28 AM IN FLIGHT REFUELING OPERATOR Gender Identity Not on file Sexual [...] Procedure Name Priority Date/Time Associated Diagnosis Comments DISCHARGE LABORATORY CUMULATIVE REPORT Routine 10/31/2014 12:00 AM IN FLIGHT REFUELING OPERATOR SERUM IGM, QUANTITATIVE Routine 09/04/20 14 9:47 AM IN FLIGHT REFUELING OPERATOR SERUM IGG, QUANTITATIVE Routine 09/04/20 14 9:47 AM IN FLIGHT REFUELING OPERATOR SERUM IGA, QUANTITATIVE Routine 09/04/20 14 9:47 AM IN FLIGHT REFUELING OPERATOR BLOOD RETICULOCYTE COUNT Routine 09/04/2014 9:42 AM IN FLIGHT REFUELING OPERATOR BLOOD CELL COUNT Routine 09/04/2014 9:42 AM IN FLIGHT REFUELING OPERATOR BLOOD DIRECT ANTIGLOBULIN TEST Routine 09/04/2014 9:30 AM IN FLIGHT REFUELING OPERATOR SERUM METHYLMALONIC ACID (MMA) Routine 06/26/2014 9:41 AM CDT SERUM IGM, QUANTITATIVE Routine 06/26/20 14 9:41 AM CDT SERUM IGG, QUANTITATIVE Routine 06/26/20 14 9:41 AM CDT SERUM IGA, QUANTITATIVE Routine 06/26/20 14 9:41 AM CDT SERUM CYANOCOBALAMIN (VITAMIN B12) Routine 06/26/2014 9:41 AM CDT PLASMA HEPATIC FUNCTION PANEL Routine 06/26/2014 9:41 AM CDT BLOOD RETICULOCYTE COUNT Routine 06/26/2014 9:39 AM CDT BLOOD CELL COUNT Routine 06/26/2014 9:39 AM CDT BLOOD CELL COUNT Routine 06/07/2014 10:5 9 AM CDT BLOOD CELL COUNT Routine 05/10/2014 9:49 AM CDT BLOOD CELL MORPHOLOGIC EXAM Routine 05/10/2014 9:49 AM CDT BLOOD DIRECT ANTIGLOBULIN TEST, IGG Routine 05/01/2014 10:24 AM CDT BLOOD DIRECT ANTIGLOBULIN TEST, ANTI-C3 Routine 05/01/2014 10:24 AM CDT SERUM IGM, QUANTITATIVE Routine 05/01/20 14 9:50 AM CDT SERUM IGG, QUANTITATIVE Routine 05/01/20 14 9:50 AM CDT SERUM IGA, QUANTITATIVE Routine 05/01/20 14 9:50 AM CDT PLASMA COMPREHENSIVE METABOLIC PANEL Routine 05/01/2014 9:50 AM CDT BLOOD DIRECT ANTIGLOBULIN TEST Routine 05/01/2014 9:50 AM CDT BLOOD MORPHOLOGY SCREEN Routine 05/01/20 14 9:48 AM CDT BLOOD CELL COUNT Routine 05/01/2014 9:48 AM CDT JOSE-BORREGO VIRUS (EBV) PCR, QUANTITATIVE, CDR Routine 05/01/2014 9:37 AM CDT ALL MICROBIOLOGY REPORT SECTION Routine 05/01/2014 12:00 AM CDT BLOOD CELL COUNT Routine 03/23/2014 8:20 AM CDT JOSE-BORREGO VIRUS (EBV) PCR, QUANTITATIVE, CDR Routine 02/15/2014 11:37 AM CDT SERUM IGM, QUANTITATIVE Routine 02/16/20 14 11:37 AM CDT SERUM IGG, QUANTITATIVE Routine 02/16/20 14 11:37 AM CDT SERUM IGA, QUANTITATIVE Routine 02/16/20 14 11:37 AM CDT PLASMA COMPREHENSIVE METABOLIC PANEL Routine 02/15/2014 11:37 AM CDT BLOOD DIRECT ANTIGLOBULIN TEST Routine 02/15/2014 11:37 AM CDT BLOOD MORPHOLOGY SCREEN Routine 02/16/20 14 11:36 AM CDT BLOOD CELL COUNT Routine 02/15/2014 11:3 6 AM CDT ALL MICROBIOLOGY REPORT SECTION Routine 02/15/2014 12:00 AM CDT documented in this encounter Results * Discharge Laboratory Cumulative Report (10/31/2014 12:00 AM IN FLIGHT REFUELING OPERATOR) 10/31/2014 Narrative HISTORICAL RESULTS - 09/04/2014 3:38 PM IN FLIGHT REFUELING OPERATOR ?[facility] ?Department of Laboratories ? [facility] [place] ?[place], [place] [address] Patient Name: ?ADI NICHOLS J Med Rec Number: ??[id number] Fin Number: ?[id number] Date: ?1995 Sex/Age: ? Male 19 years Admit Date: ?02/15/2014 Discharge Date: ??10/31/2014 Doctor: ?Regine Garcia Facility: ?[facility] Location: ?BCC Chart Printed: ?? 09/04/2014 ??15:38 ?* Abnormal ?? C Critical ?? f Footnote ?? ^ Corrected ?? L Low ?? H High ?i Interp Data ?? @ Reference Lab ? Chart Type: Periodic ?IMMUNOLOGY ?Test: ? IgA ? IgG ?IgM ?Reference: ??[70.0-370.0] ??[700.0-1,450.0] ??[30.0-210.0] ?Units: ?mg/dL ? mg/dL ?mg/dL 09/04/2014 ??09:47:00 ?<25.0 ??L ?727.0 ?122.0 Historical Provider MD LAB BLOOD ORDERABLES Chata l Result Performing Organization Address [facility] de Phone Number HISTORICAL RESULTS * Serum IgM, quantitative (09/04/2014 9:47 AM IN FLIGHT REFUELING OPERATOR) IgM 122.0 30.0 - 210.0 mg/dl HISTORICAL RESULTS Serum 09/04/2014 9:47 AM IN FLIGHT REFUELING OPERATOR Regine Garcia MD LAB BLOOD ORDERABLES Final Result Performing Organization Address [facility] de Phone Number HISTORICAL RESULTS * Serum IgG, quantitative (09/04/2014 9:47 AM IN FLIGHT REFUELING OPERATOR) IgG 727.0 700.0 - 1450.0 mg/dl HISTORICAL RESULTS Serum 09/04/2014 9:47 AM IN FLIGHT REFUELING OPERATOR Regine Garcia MD LAB BLOOD ORDERABLES Final Result Performing Organization Address [facility] de Phone Number HISTORICAL RESULTS * (ABNORMAL) Serum IgA, quantitative (09/04/2014 9:47 AM IN FLIGHT REFUELING OPERATOR) IgA <25.0(L) 70.0 - 370.0 mg/dl HISTORICAL RESULTS Serum 09/04/2014 9:47 AM IN FLIGHT REFUELING OPERATOR Regine Garcia MD LAB BLOOD ORDERABLES Final Result HISTORICAL RESULTS * Blood reticulocyte count (09/04/2014 9:42 AM IN FLIGHT REFUELING OPERATOR) Retics 0.9 0.5 - 1.5 % HISTORIC AL RESULTS Blood specimen (specimen) 09/04/2014 9:42 AM IN FLIGHT REFUELING OPERATOR Regine Garcia MD LAB BLOOD ORDERABLES Final Result Performing Organization Address [facility] de Phone Number HISTORICAL RESULTS * (ABNORMAL) Blood cell count [CBC] panel, 7 CAM (09/04/2014 9:42 AM IN FLIGHT REFUELING OPERATOR) WBC 7.4 3.8 - 9.8 K/cumm HISTORICAL RESULTS RBC 5.48 4.50 - 5.70 M/cumm HISTORICAL RESULTS Hgb 17.1 13.8 - 17.2 g/dl HISTORICAL RESULTS Hct 50.7(H) 40.7 - 50.3 % HISTORICAL RESULTS MCV 92.4 80.0 - 97.6 fl HISTORICAL RESULTS MCH 31.1 26.7 - 33.7 pg HISTORICAL RESULTS MCHC 33.7 32.7 - 35.5 g/dl HISTORICAL RESULTS Rdw 13.7 11.8 - 14.6 % HISTORICAL RESULTS Platelets 213 140 - 440 K/cumm HISTORICAL RESULTS MPV 8.1 6.8 - 10.4 fl HISTORICAL RESULTS Neutrophils 18.2(L) 38.7 - 74.5 % HISTORICAL RESULTS Lymphocytes 35.9 20.0 - 54.3 % HISTORICAL RESULTS Monos 43.1(H) 4.3 - 13.5 % HISTORICAL RESULTS Eosinophils 2.6 0.0 - 6.0 % HISTORICAL RESULTS Basophils 0.2 0.0 - 3.0 % HISTORICAL RESULTS Neutrophils, abs 1.3(L) 1.8 - 6.6 K/cumm HISTORICAL RESULTS Lymphocytes, abs 2.7 1.2 - 3.3 K/cumm HISTORICAL RESULTS Monocytes, absolute 3.2(H) 0.2 - 1.2 K/cumm HISTORICAL RESULTS Eosinophils, abs 0.2 0.0 - 0.5 K/cumm HISTORICAL RESULTS Basophils, abs 0.0 0.0 - 0.2 K/cumm HISTORICAL RESULTS Blood specimen (specimen) 09/04/2014 9:42 AM IN FLIGHT REFUELING OPERATOR us Regine Garcia MD LAB BLOOD ORDERABLES Final Result Performing Organization Address [facility] Phone Number HISTORICAL RESULTS * Blood direct antiglobulin test (09/04/2014 9:30 AM IN FLIGHT REFUELING OPERATOR) Pathologist [facility] Carol, direct, polyspecific Negative HISTORICAL RESULTS Blood specimen (specimen) 09/04/2014 9:30 AM IN FLIGHT REFUELING OPERATOR Regine Garcia MD LAB BLOOD ORDERABLES Final Result Performing Organization Address [facility] Number HISTORICAL RESULTS * Serum methylmalonic acid (MMA) (06/26/2014 9:41 AM CDT) Pathologist [facility] MMA 0.14 <=0.40 nmol/ml HISTORICAL RESULTS Comment: Test Performed by: [place] [address] Shot Man: Tolu Christiansen III, M.D. Serum 06/26/2014 9:41 AM CDT Result [facility] Regine Garcia MD LAB BLOOD ORDERABLES Final Result Performing Organization Address [facility] Phone Number HISTORICAL RESULTS * Serum cyanocobalamin (vitamin B12) (06/26/2014 9:41 AM CDT) Pathologist [facility] Cyanocobalamin (Vit B12) 481 211 - 911 pg/ml HISTORICAL RESULTS Serum 06/26/2014 9:41 AM CDT us Regine Garcia MD LAB BLOOD ORDERABLES Final Result Performing Organization Address [facility] Phone Number HISTORICAL RESULTS * (ABNORMAL) Plasma hepatic function panel (06/26/2014 9:41 AM CDT) Pathologist [facility] Protein, pl 7.6 6.5 - 8.5 g/dl HISTORICAL RESULTS Alb 4.2 3.6 - 5.0 g/dl HISTORICAL RESULTS Bilirubin 0.3 0.3 - 1.1 mg/dl HISTORICAL RESULTS Bilirubin, direct 0.1 0.0 - 0.3 mg/dl HISTORICAL RESULTS Alk phos 141(H) 38 - 126 Units/L HISTORICAL RESULTS AST 40 11 - 47 Units/L HISTORICAL RESULTS ALT 111(H) 7 - 53 Units/L HISTORICAL RESULTS Plasma 06/26/2014 9:41 AM CDT Regine Garcia MD LAB BLOOD ORDERABLES Final Result Performing Organization Address [facility] de Phone Number HISTORICAL RESULTS * Serum IgM, quantitative (06/26/2014 9:41 AM CDT) IgM 148.0 30.0 - 210.0 mg/dl HISTORICAL RESULTS Serum 06/26/2014 9:41 AM CDT Regine Garcia MD LAB BLOOD ORDERABLES Final Result Performing Organization Address [facility] de Phone Number HISTORICAL RESULTS * Serum IgG, quantitative (06/26/2014 9:41 AM CDT) IgG 1220.0 700.0 - 1450.0 mg/dl HISTORICAL RESULTS Serum 06/26/2014 9:41 AM CDT Regine Garcia MD LAB BLOOD ORDERABLES Final Result Performing Organization Address [facility] de Phone Number HISTORICAL RESULTS * (ABNORMAL) Serum IgA, quantitative (06/26/2014 9:41 AM CDT) IgA <25.0(L) 70.0 - 370.0 mg/dl HISTORICAL RESULTS Comment:{Repeated and verifi ed.} Serum 06/26/2014 9:41 AM CDT us Regine Garcia MD LAB BLOOD ORDERABLES Final Result Performing Organization Address [facility] Co de Phone Number HISTORICAL RESULTS * Blood reticulocyte count (06/26/2014 9:39 AM CDT) Retics 0.9 0.5 - 1.5 % HISTORIC AL RESULTS Blood specimen (specimen) 06/26/2014 9:39 AM CDT Regine Garcia MD LAB BLOOD ORDERABLES Final Result Performing Organization Address [facility] Co de Phone Number HISTORICAL RESULTS * (ABNORMAL) Blood cell count [CBC] panel, 7 CAM (06/26/2014 9:39 AM CDT) WBC 7.3 3.8 - 9.8 K/cumm HISTORICAL RESULTS RBC 4.64 4.50 - 5.70 M/cumm HISTORICAL RESULTS Hgb 15.3 13.8 - 17.2 g/dl HISTORICAL RESULTS Hct 45.5 40.7 - 50.3 % HISTORICAL RESULTS MCV 98.0(H) 80.0 - 97.6 fl HISTORICAL RESULTS MCH 33.0 26.7 - 33.7 pg HISTORICAL RESULTS MCHC 33.6 32.7 - 35.5 g/dl HISTORICAL RESULTS Rdw 13.8 11.8 - 14.6 % HISTORICAL RESULTS Platelets 253 140 - 440 K/cumm HISTORICAL RESULTS MPV 7.7 6.8 - 10.4 fl HISTORICAL RESULTS Neutrophils 52.9 38.7 - 74.5 % HISTORICAL RESULTS Lymphocytes 35.7 20.0 - 54.3 % HISTORICAL RESULTS Monos 10.8 4.3 - 13.5 % HISTORICAL RESULTS Eosinophils 0.3 0.0 - 6.0 % HISTORICAL RESULTS Basophils 0.3 0.0 - 3.0 % HISTORICAL RESULTS Neutrophils, abs 3.9 1.8 - 6.6 K/cumm HISTORICAL RESULTS Lymphocytes, abs 2.6 1.2 - 3.3 K/cumm HISTORICAL RESULTS Monocytes, absolute 0.8 0.2 - 1.2 K/cumm HISTORICAL RESULTS Eosinophils, abs 0.0 0.0 - 0.5 K/cumm HISTORICAL RESULTS Basophils, abs 0.0 0.0 - 0.2 K/cumm HISTORICAL RESULTS Blood specimen (specimen) 06/26/2014 9:39 AM CDT Regine Garcia MD LAB BLOOD ORDERABLES Final Result HISTORICAL RESULTS * (ABNORMAL) Blood cell count [CBC] panel, 7 CAM (06/07/2014 10:59 AM CDT) WBC 12.9(H) 3.8 - 9.8 K/cumm HISTORICAL RESULTS RBC 4.53 4.50 - 5.70 M/cumm HISTORICAL RESULTS Hgb 14.7 13.8 - 17.2 g/dl HISTORICAL RESULTS Hct 44.6 40.7 - 50.3 % HISTORICAL RESULTS MCV 98.5(H) 80.0 - 97.6 fl HISTORICAL RESULTS MCH 32.5 26.7 - 33.7 pg HISTORICAL RESULTS MCHC 33.1 32.7 - 35.5 g/dl HISTORICAL RESULTS Rdw 14.7(H) 11.8 - 14.6 % HISTORICAL RESULTS Platelets 73(L) 140 - 440 K/cumm HISTORICAL RESULTS MPV 8.8 6.8 - 10.4 fl HISTORICAL RESULTS Neutrophils 77.8(H) 38.7 - 74.5 % HISTORICAL RESULTS Lymphocytes 11.9(L) 20.0 - 54.3 % HISTORICAL RESULTS Monos 9.1 4.3 - 13.5 % HISTORICAL RESULTS Eosinophils 0.7 0.0 - 6.0 % HISTORICAL RESULTS Basophils 0.5 0.0 - 3.0 % HISTORICAL RESULTS Neutrophils, abs 10.1(H) 1.8 - 6.6 K/cumm HISTORICAL RESULTS Lymphocytes, abs 1.5 1.2 - 3.3 K/cumm HISTORICAL RESULTS Monocytes, absolute 1.2 0.2 - 1.2 K/cumm HISTORICAL RESULTS Eosinophils, abs 0.1 0.0 - 0.5 K/cumm HISTORICAL RESULTS Basophils, abs 0.1 0.0 - 0.2 K/cumm HISTORICAL RESULTS Blood specimen (specimen) 06/07/2014 10:59 AM CDT Regine Garcia MD LAB BLOOD ORDERABLES Final Result HISTORICAL RESULTS * (ABNORMAL) Blood cell morphologic exam (05/10/2014 9:49 AM CDT) Neutrophilic bands 1 0 - 6 % H ISTORICAL RESULTS Neutrophils 7(L) 44 - 80 % HISTORIC AL RESULTS Lymphocytes 43 8 - 44 % HISTORIC AL RESULTS Atypical lymphs 5(H) 0 - 0 % HIST ORICAL RESULTS Abnormal lymphs 3(H) 0 - 0 % HIST ORICAL RESULTS Young lymph 3(H) 0 - 0 % HISTORIC AL RESULTS Monos 34(H) 2 - 8 % HISTORICAL RESULTS Eosinophils 3 0 - 6 % HISTORIC AL RESULTS Basophils 1 0 - 3 % HISTORICAL RESULTS WBC counted 100 HISTORIC AL RESULTS Platelet estimate Decreased Adequate HI STORICAL RESULTS Polychromasia Trace None Seen HISTOR ICAL RESULTS Anisocytosis Trace None Seen HISTORI PINKY RESULTS Macrocytosis 1 - 10 % None Seen HISTORI PINKY RESULTS Poikilocytosis Trace None Seen HISTO RICAL RESULTS Target cells 1 - 10 % None Seen HISTORI PINKY RESULTS Blood specimen (specimen) 05/10/2014 9:49 AM CDT Regine Garcia MD LAB BLOOD ORDERABLES Final Result HISTORICAL RESULTS * (ABNORMAL) Blood cell count [CBC] panel, 7 CAM (05/10/2014 9:49 AM CDT) WBC 5.3 3.8 - 9.8 K/cumm HISTORICAL RESULTS RBC 4.81 4.50 - 5.70 M/cumm HISTORICAL RESULTS Hgb 15.9 13.8 - 17.2 g/dl HISTORICAL RESULTS Hct 46.7 40.7 - 50.3 % HISTORICAL RESULTS MCV 97.1 80.0 - 97.6 fl HISTORICAL RESULTS MCH 33.1 26.7 - 33.7 pg HISTORICAL RESULTS MCHC 34.1 32.7 - 35.5 g/dl HISTORICAL RESULTS Rdw 15.5(H) 11.8 - 14.6 SD HISTORICAL RESULTS Platelets 5(C) 140 - 440 K/cumm HISTORICAL RESULTS Comment:{Result consistent w ith previously reported values.} MPV 11.5(H) 6.8 - 10.4 fl HISTORICAL RESULTS Blood specimen (specimen) 05/10/2014 9:49 AM CDT Regine Garcia MD LAB BLOOD ORDERABLES Final Result Performing Organization Address [facility] de Phone Number HISTORICAL RESULTS * (ABNORMAL) Blood direct antiglobulin test, IgG (05/01/2014 10:24 AM CDT) Carol, direct, IgG Positive(A ) HISTORICAL RESULTS Blood specimen (specimen) 05/01/2014 10:24 AM CDT Regine Garcia MD LAB BLOOD ORDERABLES Final Result Performing Organization Address [facility] de Phone Number HISTORICAL RESULTS * Blood direct antiglobulin test, anti-C3 (05/01/2014 10:24 AM CDT) Carol, direct, complement Negative HISTORICAL RESULTS Blood specimen (specimen) 05/01/2014 10:24 AM CDT Regine Garcia MD LAB BLOOD ORDERABLES Final Result Performing Organization Address [facility] de Phone Number HISTORICAL RESULTS * (ABNORMAL) Plasma comprehensive metabolic panel (05/01/2014 9:50 AM CDT) Sodium 140 135 - 145 mmol/L HISTORICAL RESULTS K, pl 4.3 3.3 - 4.9 mmol/L HISTORICAL RESULTS Chloride 106 97 - 110 mmol/L HISTORICAL RESULTS CO2 26 22 - 32 mmol/L HISTORICAL RESULTS A. gap 8 0 - 16 mmol/L HISTORICAL RESULTS Glucose 106 70 - 199 mg/dl HISTORICAL RESULTS BUN 9 8 - 25 mg/dl HISTORICAL RESULTS Creatinine 0.76 0.70 - 1.30 mg/dl HISTORICAL RESULTS Calcium 9.6 8.6 - 10.3 mg/dl HISTORICAL RESULTS Protein, pl 8.3 6.5 - 8.5 g/dl HISTORICAL RESULTS Alb 4.3 3.6 - 5.0 g/dl HISTORICAL RESULTS Bilirubin 0.5 0.3 - 1.1 mg/dl HISTORICAL RESULTS Alk phos 163(H) 38 - 126 Units/L HISTORICAL RESULTS AST 50(H) 11 - 47 Units/L HISTORICAL RESULTS ALT 65(H) 7 - 53 Units/L HISTORICAL RESULTS Plasma 05/01/2014 9:50 AM CDT us Regine Garcia MD LAB BLOOD ORDERABLES Final Result Performing Organization Address [facility] Number HISTORICAL RESULTS * Serum IgM, quantitative (05/01/2014 9:50 AM CDT) IgM 145.0 30.0 - 210.0 mg/dl HISTORICAL RESULTS Serum 05/01/2014 9:50 AM CDT us Regine Garcia MD LAB BLOOD ORDERABLES Final Result Performing Organization Address [facility] Number HISTORICAL RESULTS * (ABNORMAL) Serum IgG, quantitative (05/01/2014 9:50 AM CDT) IgG 1890.0(H) 700.0 - 1450.0 mg/dl HISTORICAL RESULTS Serum 05/01/2014 9:50 AM CDT us Regine Garcia MD LAB BLOOD ORDERABLES Final Result Performing Organization Address [facility] Number HISTORICAL RESULTS * (ABNORMAL) Serum IgA, quantitative (05/01/2014 9:50 AM CDT) IgA <25.0(L) 70.0 - 370.0 mg/dl HISTORICAL RESULTS Serum 05/01/2014 9:50 AM CDT us Regine Garcia MD LAB BLOOD ORDERABLES Final Result Performing Organization Address [facility] Phone Number HISTORICAL RESULTS * (ABNORMAL) Blood direct antiglobulin test (05/01/2014 9:50 AM CDT) Carol, direct, polyspecific Positive( A) HISTORICAL RESULTS Blood specimen (specimen) 05/01/2014 9:50 AM CDT Regine Garcia MD LAB BLOOD ORDERABLES Final Result HISTORICAL RESULTS * Blood morphology screen (05/01/2014 9:48 AM CDT) Morphology scrn Original results obtained required verification by peripheral smear HISTORICAL RESULTS Blood specimen (specimen) 05/01/2014 9:48 AM CDT Regine Garcia MD LAB BLOOD ORDERABLES Final Result Performing Organization Address [facility] de Phone Number HISTORICAL RESULTS * (ABNORMAL) Blood cell count [CBC] panel, 7 CAM (05/01/2014 9:48 AM CDT) WBC 3.9 3.8 - 9.8 K/cumm HISTORICAL RESULTS RBC 4.37(L) 4.50 - 5.70 M/cumm HISTORICAL RESULTS Hgb 14.6 13.8 - 17.2 g/dl HISTORICAL RESULTS Hct 42.8 40.7 - 50.3 % HISTORICAL RESULTS MCV 97.9(H) 80.0 - 97.6 fl HISTORICAL RESULTS MCH 33.6 26.7 - 33.7 pg HISTORICAL RESULTS MCHC 34.3 32.7 - 35.5 g/dl HISTORICAL RESULTS Rdw 16.3(H) 11.8 - 14.6 SD HISTORICAL RESULTS Platelets 53(L) 140 - 440 K/cumm HISTORICAL RESULTS MPV 10.2 6.8 - 10.4 fl HISTORICAL RESULTS Neutrophils 9.7(L) 38.7 - 74.5 % HISTORICAL RESULTS Lymphocytes 54.0 20.0 - 54.3 % HISTORICAL RESULTS Monos 31.8(H) 4.3 - 13.5 % HISTORICAL RESULTS Comment:{Result consistent w ith previously reported values.} Eosinophils 4.1 0.0 - 6.0 % HISTORICAL RESULTS Basophils 0.4 0.0 - 3.0 % HISTORICAL RESULTS Neutrophils, abs 0.4(L) 1.8 - 6.6 K/cumm HISTORICAL RESULTS Lymphocytes, abs 2.1 1.2 - 3.3 K/cumm HISTORICAL RESULTS Monocytes, absolute 1.2 0.2 - 1.2 K/cumm HISTORICAL RESULTS Eosinophils, abs 0.2 0.0 - 0.5 K/cumm HISTORICAL RESULTS Basophils, abs 0.0 0.0 - 0.2 K/cumm HISTORICAL RESULTS Blood specimen (specimen) 05/01/2014 9:48 AM CDT Regine Garcia MD LAB BLOOD ORDERABLES Final Result HISTORICAL RESULTS * Jose-Borrego virus (EBV) PCR, quantitative (05/01/2014 9:37 AM CDT) Blood specimen (specimen) (Unknown) 05/01/2014 9:37 AM CDT 05/01/2014 5:11 PM CDT Impressions HISTORICAL RESULTS - 05/02/2014 1:12 PM CDT The EBV Quantitative PCR assay used to measure EBV DNA amplifies a segment of the EBNA-1 gene and accurate detection is possible for levels as low as 200 genome copies per milliliter of whole blood. ??The assay is accurate for quantitation in the range of 4,000 to 40,000,000 genome copies/ml. ??Specimens found to have detectable EBV DNA at a level below the range of accurate quantitation are reported as EBV DNA detected. ??Unable to quantitate because the level of viral DNA is below the level of accurate quantitation (<4,000 copies/ml) . ??Specimens found to have EBV DNA levels above the range of accurate quantitation will have a preliminary report issued stating Positive: >40,000,000 copies/ml . ??The specimen is subsequently retested after dilution to determine the actual copy number. ??This test was developed, and its performance characteristics were determined, by the [facility]. ??It has not been cleared or approved by the U.S. Food and Drug Administration. Specimen Specific Comments: Measurement of EBV DNA in blood has been used primarily to assist in the identification of solid organ and hematopoietic stem cell transplant recipients who currently have, or are at risk for the development of post-transplant lymphoproliferative disorder (PTLD). ??There is no quantitative cutoff for whole blood EBV that is diagnostic of PTLD, however levels above approximately 5,000 genome copies per milliliter indicate an increased risk, and that risk rises with increasing levels of EBV. ?? Failure to detect EBV DNA in whole blood has a high negative predictive value (greater than 95% in several studies) for excluding the diagnosis of PTLD, but can never completely rule out that diagnosis. ??A rapid rise in serially monitored whole blood samples may be more significant than the absolute level of EBV. ??Low levels of EBV, usually less than 1000 copies per milliliter, can sometimes be detected in whole blood from asymptomatic normal or immunocompromised individuals who have experienced EBV infection in the past. ??These levels are not clinically significant. ??The EBV Quantitative PCR can also be used to monitor the efficacy of efforts designed to lower EBV levels, which are expected to decline within several days of interventions, such as lowering of immunosuppressive medication dosage. ??EBV DNA levels in plasma are lower than those in whole blood and are more likely to be falsely negative . ??Several studies have suggested that a level in plasma greater than 1000 genome copies per milliliter indicates a high risk of PTLD. ??Patients with acute mononucleosis may have levels of 100,000 genome copies per milliliter of whole blood, but under normal circumstances these levels decline within several weeks of the onset of symptoms. ??Current interpretive data was last revised on 2010. Narrative HISTORICAL RESULTS - 05/02/2014 1:12 PM CDT Positive: 7,077 copies/mL. Historical Provider LAB MICROBIOLOGY - GENERA L ORDERABLES Final Result HISTORICAL RESULTS * All Microbiology Report Section (05/01/2014 12:00 AM CDT) 05/01/2014 Narrative HISTORICAL RESULTS - 05/02/2014 4:32 PM CDT ? [facility] ?[facility] [place] ?[place], [place] [address] ? Patient Name: ??SUESS, ADI J ? Med Rec Number: [id number] ? Fin Number: ?[id number] ? Date: ?1995 ? Sex/Age: ? Male 19 years ? Admit Date: ?02/15/2014 ? Discharge Date: 10/31/2014 ? Doctor: ?<Unknown> ? Facility: ?[facility] ? Location: ?BCC ?* Abnormal ??A Alert ??f Footnote ??^ Corrected ??L Low ??H High ?i Interp Data ??@ Ref Lab ? Chart Type:Cumulative ?* * * * MICROBIOLOGY - MOLECULAR TESTING * * * * ?PROCEDURE: Jose Borrego Virus (EBV) Quantitative PCR ? SOURCE: Blood ? COLLECTED: 05/01/14 ??0937 ?BODY SITE: ? STARTED: 05/01/14 ??1712 ? FREE TEXT SOURCE: ? FINAL REPORT ? REPORTED: 05/02/14 1312 ? Positive: 7,077 copies/mL. ? ORDER COMMENTS ? (1)Testing performed by: [facility], ? [place]. ??[id number]. ?* * * ??Interpretive Results ??* * * ? (1)The EBV Quantitative PCR assay used to measure EBV DNA amplifies ? a segment of the EBNA-1 gene and accurate detection is possible ? for levels as low as 200 genome copies per milliliter of whole ? blood. ??The assay is accurate for quantitation in the range of 4, ? 000 to 40,000,000 genome copies/ml. ??Specimens found to have ? detectable EBV DNA at a level below the range of accurate ? quantitation are reported as EBV DNA detected. ??Unable to ? quantitate because the level of viral DNA is below the level of ? accurate quantitation (<4,000 copies/ml) . ??Specimens found to ? have EBV DNA levels above the range of accurate quantitation ? will have a preliminary report issued stating Positive: >40,000, ? 000 copies/ml . ??The specimen is subsequently retested after ? dilution to determine the actual copy number. ??This test was ? developed, and its performance characteristics were determined, ? by the [facility]. ??It ? has not been cleared or approved by the U.S. Food and Drug ? Administration.Specimen Specific Comments: Measurement of EBV ? DNA in blood has been used primarily to assist in the ? identification of solid organ and hematopoietic stem cell ? transplant recipients who currently have, or are at risk for the ? development of post-transplant lymphoproliferative disorder ? (PTLD). ??There is no quantitative cutoff for whole blood EBV ? that is diagnostic of PTLD, however levels above approximately 5, ? 000 genome copies per milliliter indicate an increased risk, and ? that risk rises with increasing levels of EBV. ??Failure to ? detect EBV DNA in whole blood has a high negative predictive ? value (greater than 95% in several studies) for excluding the ? diagnosis of PTLD, but can never completely rule out that ? diagnosis. ??A rapid rise in serially monitored whole blood ? samples may be more significant than the absolute level of EBV. ? Low levels of EBV, usually less than 1000 copies per milliliter, ? can sometimes be detected in whole blood from asymptomatic ? normal or immunocompromised individuals who have experienced EBV ? infection in the past. ??These levels are not clinically ? significant. ??The EBV Quantitative PCR can also be used to ? monitor the efficacy of efforts designed to lower EBV levels, ? which are expected to decline within several days of ? interventions, such as lowering of immunosuppressive medication ? dosage. ??EBV DNA levels in plasma are lower than those in whole ? blood and are more likely to be falsely negative . ??Several ? studies have suggested that a level in plasma greater than 1000 ? genome copies per milliliter indicates a high risk of PTLD. ? Patients with acute mononucleosis may have levels of 100,000 ? genome copies per milliliter of whole blood, but under normal ? circumstances these levels decline within several weeks of the ? onset of symptoms. ??Current interpretive data was last revised ? on 04/01/2010. ? Historical Provider LAB MICROBIOLOGY - GENERA L ORDERABLES Final Result HISTORICAL RESULTS * (ABNORMAL) Blood cell count [CBC] panel, 7 CAM (03/23/2014 8:20 AM CDT) WBC 4.9 3.8 - 9.8 K/cumm HISTORICAL RESULTS RBC 4.51 4.50 - 5.70 M/cumm HISTORICAL RESULTS Hgb 14.7 13.8 - 17.2 g/dl HISTORICAL RESULTS Hct 43.3 40.7 - 50.3 % HISTORICAL RESULTS MCV 96.1 80.0 - 97.6 fl HISTORICAL RESULTS MCH 32.6 26.7 - 33.7 pg HISTORICAL RESULTS MCHC 33.9 32.7 - 35.5 g/dl HISTORICAL RESULTS Rdw 14.3 11.8 - 14.6 SD HISTORICAL RESULTS Platelets 12(C) 140 - 440 K/cumm HISTORICAL RESULTS Comment:{Result consistent w ith previously reported values.} MPV 10.7(H) 6.8 - 10.4 fl HISTORICAL RESULTS Neutrophils 18.9(L) 38.7 - 74.5 % HISTORICAL RESULTS Lymphocytes 35.9 20.0 - 54.3 % HISTORICAL RESULTS Monos 43.6(H) 4.3 - 13.5 % HISTORICAL RESULTS Comment:{Result consistent w ith previously reported values.} Eosinophils 1.3 0.0 - 6.0 % HISTORICAL RESULTS Basophils 0.3 0.0 - 3.0 % HISTORICAL RESULTS Neutrophils, abs 0.9(L) 1.8 - 6.6 K/cumm HISTORICAL RESULTS Lymphocytes, abs 1.8 1.2 - 3.3 K/cumm HISTORICAL RESULTS Monocytes, absolute 2.1(H) 0.2 - 1.2 K/cumm HISTORICAL RESULTS Eosinophils, abs 0.1 0.0 - 0.5 K/cumm HISTORICAL RESULTS Basophils, abs 0.0 0.0 - 0.2 K/cumm HISTORICAL RESULTS Blood specimen (specimen) 03/23/2014 8:20 AM CDT Regine Garcia MD LAB BLOOD ORDERABLES Final Result Performing Organization Address City/[facility] de Phone Number HISTORICAL RESULTS * (ABNORMAL) Plasma comprehensive metabolic panel (02/15/2014 11:37 AM CDT) Sodium 137 135 - 145 mmol/L HISTORICAL RESULTS K, pl 4.3 3.3 - 4.9 mmol/L HISTORICAL RESULTS Chloride 101 97 - 110 mmol/L HISTORICAL RESULTS CO2 26 22 - 32 mmol/L HISTORICAL RESULTS A. gap 10 0 - 16 mmol/L HISTORICAL RESULTS Glucose 95 70 - 199 mg/dl HISTORICAL RESULTS BUN 11 8 - 25 mg/dl HISTORICAL RESULTS Creatinine 0.68(L) 0.70 - 1.30 mg/dl HISTORICAL RESULTS Calcium 9.2 8.6 - 10.3 mg/dl HISTORICAL RESULTS Protein, pl 6.9 6.5 - 8.5 g/dl HISTORICAL RESULTS Alb 3.5(L) 3.6 - 5.0 g/dl HISTORICAL RESULTS Bilirubin 0.4 0.3 - 1.1 mg/dl HISTORICAL RESULTS Alk phos 161(H) 38 - 126 Units/L HISTORICAL RESULTS AST 34 11 - 47 Units/L HISTORICAL RESULTS ALT 41 7 - 53 Units/L HISTORICAL RESULTS Plasma 02/15/2014 11:3 7 AM CDT Regine Garcia MD LAB BLOOD ORDERABLES Final Result Performing Organization Address [facility] [place]/[facility] de Phone Number HISTORICAL RESULTS * Serum IgM, quantitative (02/15/2014 11:37 AM CDT) IgM 108.0 30.0 - 210.0 mg/dl HISTORICAL RESULTS Serum 02/15/2014 11:3 7 AM CDT Regine Garcia MD LAB BLOOD ORDERABLES Final Result Performing Organization Address [facility] [place]/[facility] de Phone Number HISTORICAL RESULTS * Serum IgG, quantitative (02/15/2014 11:37 AM CDT) IgG 1140.0 700.0 - 1450.0 mg/dl HISTORICAL RESULTS Serum 02/15/2014 11:3 7 AM CDT Regine Garcia MD LAB BLOOD ORDERABLES Final Result HISTORICAL RESULTS * (ABNORMAL) Serum IgA, quantitative (02/15/2014 11:37 AM CDT) IgA <25.0(L) 70.0 - 370.0 mg/dl HISTORICAL RESULTS Serum 02/15/2014 11:3 7 AM CDT Regine Garcia MD LAB BLOOD ORDERABLES Final Result Performing Organization Address [facility] [place] Co de Phone Number HISTORICAL RESULTS * Blood direct antiglobulin test (02/15/2014 11:37 AM CDT) Carol, direct, polyspecific Negative HISTORICAL RESULTS Blood specimen (specimen) 02/15/2014 11:37 AM CDT Regine Garcia MD LAB BLOOD ORDERABLES Final Result Performing Organization Address [facility] [place] de Phone Number HISTORICAL RESULTS * Jose-Borrego virus (EBV) PCR, quantitative (02/15/2014 11:37 AM CDT) Blood specimen (specimen) (Unknown) 02/15/2014 11:37 AM CDT 02/16/2014 9:57 AM CDT Impressions HISTORICAL RESULTS - 02/19/2014 6:21 AM CDT The EBV Quantitative PCR assay used to measure EBV DNA amplifies a segment of the EBNA-1 gene and accurate detection is possible for levels as low as 200 genome copies per milliliter of whole blood. ??The assay is accurate for quantitation in the range of 4,000 to 40,000,000 genome copies/ml. ??Specimens found to have detectable EBV DNA at a level below the range of accurate quantitation are reported as EBV DNA detected. ??Unable to quantitate because the level of viral DNA is below the level of accurate quantitation (<4,000 copies/ml) . ??Specimens found to have EBV DNA levels above the range of accurate quantitation will have a preliminary report issued stating Positive: >40,000,000 copies/ml . ??The specimen is subsequently retested after dilution to determine the actual copy number. ??This test was developed, and its performance characteristics were determined, by the [facility]. ??It has not been cleared or approved by the U.S. Food and Drug Administration. Specimen Specific Comments: Measurement of EBV DNA in blood has been used primarily to assist in the identification of solid organ and hematopoietic stem cell transplant recipients who currently have, or are at risk for the development of post-transplant lymphoproliferative disorder (PTLD). ??There is no quantitative cutoff for whole blood EBV that is diagnostic of PTLD, however levels above approximately 5,000 genome copies per milliliter indicate an increased risk, and that risk rises with increasing levels of EBV. ?? Failure to detect EBV DNA in whole blood has a high negative predictive value (greater than 95% in several studies) for excluding the diagnosis of PTLD, but can never completely rule out that diagnosis. ??A rapid rise in serially monitored whole blood samples may be more significant than the absolute level of EBV. ??Low levels of EBV, usually less than 1000 copies per milliliter, can sometimes be detected in whole blood from asymptomatic normal or immunocompromised individuals who have experienced EBV infection in the past. ??These levels are not clinically significant. ??The EBV Quantitative PCR can also be used to monitor the efficacy of efforts designed to lower EBV levels, which are expected to decline within several days of interventions, such as lowering of immunosuppressive medication dosage. ??EBV DNA levels in plasma are lower than those in whole blood and are more likely to be falsely negative . ??Several studies have suggested that a level in plasma greater than 1000 genome copies per milliliter indicates a high risk of PTLD. ??Patients with acute mononucleosis may have levels of 100,000 genome copies per milliliter of whole blood, but under normal circumstances these levels decline within several weeks of the onset of symptoms. ??Current interpretive data was last revised on 2010. Narrative HISTORICAL RESULTS - 02/19/2014 6:21 AM CDT Positive: 7,637 copies/mL. us Historical Provider LAB MICROBIOLOGY - GENERA L ORDERABLES Final Result HISTORICAL RESULTS * Blood morphology screen (02/15/2014 11:36 AM CDT) Morphology scrn Original results obtained required verification by peripheral smear HISTORICAL RESULTS Blood specimen (specimen) 02/15/2014 11:36 AM CDT Regine Garcia MD LAB BLOOD ORDERABLES Final Result HISTORICAL RESULTS * (ABNORMAL) Blood cell count [CBC] panel, 7 CAM (02/15/2014 11:36 AM CDT) WBC 5.5 3.8 - 9.8 K/cumm HISTORICAL RESULTS RBC 4.50 4.50 - 5.70 M/cumm HISTORICAL RESULTS Hgb 14.3 13.8 - 17.2 g/dl HISTORICAL RESULTS Hct 43.4 40.7 - 50.3 % HISTORICAL RESULTS MCV 96.5 80.0 - 97.6 fl HISTORICAL RESULTS MCH 31.8 26.7 - 33.7 pg HISTORICAL RESULTS MCHC 33.0 32.7 - 35.5 g/dl HISTORICAL RESULTS Rdw 14.0 11.8 - 14.6 SD HISTORICAL RESULTS Platelets 13(C) 140 - 440 K/cumm HISTORICAL RESULTS Comment:{Verified by periphe ral smear.} MPV 10.6(H) 6.8 - 10.4 fl HISTORICAL RESULTS Neutrophils 18.3(L) 38.7 - 74.5 % HISTORICAL RESULTS Lymphocytes 36.6 20.0 - 54.3 % HISTORICAL RESULTS Monos 42.3(H) 4.3 - 13.5 % HISTORICAL RESULTS Comment:{Verified by periphe ral smear.} Eosinophils 2.3 0.0 - 6.0 % HISTORICAL RESULTS Basophils 0.5 0.0 - 3.0 % HISTORICAL RESULTS Neutrophils, abs 1.0(L) 1.8 - 6.6 K/cumm HISTORICAL RESULTS Lymphocytes, abs 2.0 1.2 - 3.3 K/cumm HISTORICAL RESULTS Monocytes, absolute 2.3(H) 0.2 - 1.2 K/cumm HISTORICAL RESULTS Eosinophils, abs 0.1 0.0 - 0.5 K/cumm HISTORICAL RESULTS Basophils, abs 0.0 0.0 - 0.2 K/cumm HISTORICAL RESULTS Blood specimen (specimen) 02/15/2014 11:36 AM CDT us Regine Garcia MD LAB BLOOD ORDERABLES Final Result HISTORICAL RESULTS * All Microbiology Report Section (02/15/2014 12:00 AM CDT) 02/15/2014 Narrative HISTORICAL RESULTS - 05/02/2014 4:32 PM CDT ? [facility] ?[facility] [place] ?[place], [place] [address] ? Patient Name: ??ADI NICHOLS ? Med Rec Number: [id number] ? Fin Number: ?[id number] ? Date: ?1995 ? Sex/Age: ? Male 19 years ? Admit Date: ?02/15/2014 ? Discharge Date: 10/31/2014 ? Doctor: ?<Unknown> ? Facility: ?[facility] ? Location: ?[facility] ?* Abnormal ??A Alert ??f Footnote ??^ Corrected ??L Low ??H High ?i Interp Data ??@ Ref Lab ? Chart Type:Cumulative ?* * * * MICROBIOLOGY - MOLECULAR TESTING * * * * ?PROCEDURE: Jose Borrego Virus (EBV) Quantitative PCR ? SOURCE: Blood ? COLLECTED: 02/15/14 ??1137 ?BODY SITE: ? STARTED: 02/16/14 ??0957 ? FREE TEXT SOURCE: ? FINAL REPORT ? REPORTED: 02/19/14620 ? Positive: 7,637 copies/mL. ? ORDER COMMENTS ? (1)Testing performed by: [facility], ? [place]. ??[address]. ?* * * ??Interpretive Results ??* * * ? (1)The EBV Quantitative PCR assay used to measure EBV DNA amplifies ? a segment of the EBNA-1 gene and accurate detection is possible ? for levels as low as 200 genome copies per milliliter of whole ? blood. ??The assay is accurate for quantitation in the range of 4, ? 000 to 40,000,000 genome copies/ml. ??Specimens found to have ? detectable EBV DNA at a level below the range of accurate ? quantitation are reported as EBV DNA detected. ??Unable to ? quantitate because the level of viral DNA is below the level of ? accurate quantitation (<4,000 copies/ml) . ??Specimens found to ? have EBV DNA levels above the range of accurate quantitation ? will have a preliminary report issued stating Positive: >40,000, ? 000 copies/ml . ??The specimen is subsequently retested after ? dilution to determine the actual copy number. ??This test was ? developed, and its performance characteristics were determined, ? by the [facility]. ??It ? has not been cleared or approved by the U.S. Food and Drug ? Administration.Specimen Specific Comments: Measurement of EBV ? DNA in blood has been used primarily to assist in the ? identification of solid organ and hematopoietic stem cell ? transplant recipients who currently have, or are at risk for the ? development of post-transplant lymphoproliferative disorder ? (PTLD). ??There is no quantitative cutoff for whole blood EBV ? that is diagnostic of PTLD, however levels above approximately 5, ? 000 genome copies per milliliter indicate an increased risk, and ? that risk rises with increasing levels of EBV. ??Failure to ? detect EBV DNA in whole blood has a high negative predictive ? value (greater than 95% in several studies) for excluding the ? diagnosis of PTLD, but can never completely rule out that ? diagnosis. ??A rapid rise in serially monitored whole blood ? samples may be more significant than the absolute level of EBV. ? Low levels of EBV, usually less than 1000 copies per milliliter, ? can sometimes be detected in whole blood from asymptomatic ? normal or immunocompromised individuals who have experienced EBV ? infection in the past. ??These levels are not clinically ? significant. ??The EBV Quantitative PCR can also be used to ? monitor the efficacy of efforts designed to lower EBV levels, ? which are expected to decline within several days of ? interventions, such as lowering of immunosuppressive medication ? dosage. ??EBV DNA levels in plasma are lower than those in whole ? blood and are more likely to be falsely negative . ??Several ? studies have suggested that a level in plasma greater than 1000 ? genome copies per milliliter indicates a high risk of PTLD. ? Patients with acute mononucleosis may have levels of 100,000 ? genome copies per milliliter of whole blood, but under normal ? circumstances these levels decline within several weeks of the ? onset of symptoms. ??Current interpretive data was last revised ? on 04/01/2010. ? us Historical Provider LAB MICROBIOLOGY - GENERA L ORDERABLES Final Result HISTORICAL RESULTS documented in this encounter Visit Diagnoses Diagnosis Other neutropenia (CMS/HCC) (HCC) Other neutropenia documented in this encounter
--- OUTSIDE RECORDS SUMMARY | 2024-10-28 06:29 | XMS_ITS | Encounter Summary ---
Author Organization [facility] Facility Care Team Providers Care Telecom Specialist Name Role Phone Unavailable Primary Care Provider Unavailabl e Encounter Details Date Type Department Care Team (Late st Contact Info) Description 10/14/2016 1:15 PM CLIENT EXPERIENCE SPECIALIST - 10/15/2016 11:59 PM CLIENT EXPERIENCE SPECIALIST Hospital [facility] Dyer MD [address] [place] [address] Generalized enlarged lymph nodes Social History Tobacco Use Types Packs/Day Years Used Date Smoking Tobacco: Never Assessed Sex and Gender Information Value Date Recorded Sex Assigned at Not on file Legal Sex Male 6:28 AM CLIENT EXPERIENCE SPECIALIST Gender Identity Not on file Sexual [...] Name Priority Date/Time Associated Diagnosis Comments SERUM LACTATE DEHYDROGENASE (LDH) Routine 10/15/2016 11:25 AM CLIENT EXPERIENCE SPECIALIST PLASMA COMPREHENSIVE METABOLIC PANEL Routine 10/15/2016 11:25 AM CLIENT EXPERIENCE SPECIALIST SERUM CYANOCOBALAMIN (VITAMIN B12) Routine 10/15/2016 11:08 AM CLIENT EXPERIENCE SPECIALIST BLOOD RETICULOCYTE COUNT Routine 10/15/2016 8:26 AM CLIENT EXPERIENCE SPECIALIST BLOOD MORPHOLOGY SCREEN Routine 10/15/20 8:26 AM CLIENT EXPERIENCE SPECIALIST BLOOD CELL COUNT Routine 10/15/2016 8:26 AM CLIENT EXPERIENCE SPECIALIST DISCHARGE LABORATORY CUMULATIVE REPORT 10/14/2016 documented in this encounter Results * (ABNORMAL) Plasma comprehensive metabolic panel (10/15/2016 11:25 AM CLIENT EXPERIENCE SPECIALIST) Pathologist [facility] Sodium 141 135 - 145 mmol/L CDR HISTORICAL RESULTS K, pl 4.6 3.3 - 4.9 mmol/L CDR HISTORICAL RESULTS CO2 28 22 - 32 mmol/L CDR HISTORICAL RESULTS BUN 9 8 - 25 mg/dl CDR HISTORICAL RESULTS Glucose 89 70 - 199 mg/dl CDR HISTORICAL RESULTS Creatinine 0.75 0.70 - 1.30 mg/dl CDR HISTORICAL RESULTS Calcium 9.3 8.5 - 10.3 mg/dl CDR HISTORICAL RESULTS Chloride 106 97 - 110 mmol/L CDR HISTORICAL RESULTS Alb 4.3 3.5 - 5.0 g/dl CDR HISTORICAL RESULTS AST 37 10 - 50 Units/L CDR HISTORICAL RESULTS ALT 41 7 - 55 Units/L CDR HISTORICAL RESULTS Alk phos 170(H) 40 - 130 Units/L CDR HISTORICAL RESULTS Bilirubin 0.4 0.1 - 1.2 mg/dl CDR HISTORICAL RESULTS Protein, pl 7.0 6.5 - 8.5 g/dl CDR HISTORICAL RESULTS A. gap 7 2 - 15 mmol/L CDR HISTORICAL RESULTS Plasma 10/15/2016 11:2 5 AM CLIENT EXPERIENCE SPECIALIST Regine Garcia MD LAB BLOOD ORDERABLES Final Result CDR HISTORICAL RESULTS * Serum lactate dehydrogenase (LDH) (10/15/2016 11:25 AM CLIENT EXPERIENCE SPECIALIST) Lactate dehydrogenase (LDH) 191 100 - 250 Units/L CDR HISTORICAL RESULTS Serum 10/15/2016 11:2 5 AM CLIENT EXPERIENCE SPECIALIST Regine Garcia MD LAB BLOOD ORDERABLES Final Result Performing Organization Address [facility] de Phone Number CDR HISTORICAL RESULTS * (ABNORMAL) Serum cyanocobalamin (vitamin B12) (10/15/2016 11:08 AM CLIENT EXPERIENCE SPECIALIST) Cyanocobalamin (Vit B12) 1328(H) 210 - 900 pg/ml CDR HISTORICAL RESULTS Serum 10/15/2016 11:0 8 AM CLIENT EXPERIENCE SPECIALIST Regine Garcia MD LAB BLOOD ORDERABLES Final Result Performing Organization Address [facility] de Phone Number CDR HISTORICAL RESULTS * Blood reticulocyte count (10/15/2016 8:26 AM CLIENT EXPERIENCE SPECIALIST) Retics 0.5 0.5 - 1.5 % CDR HIST ORICAL RESULTS Blood specimen (specimen) 10/15/2016 8:26 AM CLIENT EXPERIENCE SPECIALIST Regine Garcia MD LAB BLOOD ORDERABLES Final Result Performing Organization Address [facility] de Phone Number CDR HISTORICAL RESULTS * Blood morphology screen (10/15/2016 8:26 AM CLIENT EXPERIENCE SPECIALIST) Morphology scrn Original results obtained required verification by peripheral smear CDR HISTORICAL RESULTS Blood specimen (specimen) 10/15/2016 8:26 AM CLIENT EXPERIENCE SPECIALIST us Regine Garcia MD LAB BLOOD ORDERABLES Final Result Performing Organization Address [facility] Co de Phone Number CDR HISTORICAL RESULTS * (ABNORMAL) Blood cell count [CBC] panel, 7 CAM (10/15/2016 8:26 AM CLIENT EXPERIENCE SPECIALIST) WBC 4.5 3.8 - 9.8 K/cumm CDR HISTORICAL RESULTS RBC 4.85 4.50 - 5.70 M/cumm CDR HISTORICAL RESULTS Hgb 15.1 13.8 - 17.2 g/dl CDR HISTORICAL RESULTS Hct 46.3 40.7 - 50.3 % CDR HISTORICAL RESULTS MCV 95.5 80.0 - 97.6 fl CDR HISTORICAL RESULTS MCH 31.2 26.7 - 33.7 pg CDR HISTORICAL RESULTS MCHC 32.7 32.7 - 35.5 g/dl CDR HISTORICAL RESULTS Rdw 14.5 11.8 - 14.6 % CDR HISTORICAL RESULTS Platelets 38(L) 140 - 440 K/cumm CDR HISTORICAL RESULTS MPV 10.4 6.8 - 10.4 fl CDR HISTORICAL RESULTS Neutrophils 14.9(L) 38.7 - 74.5 % CDR HISTORICAL RESULTS Lymphocytes 51.2 20.0 - 54.3 % CDR HISTORICAL RESULTS Monos 29.3(H) 4.3 - 13.5 % CDR HISTORICAL RESULTS Comment:{Verified by periphe ral smear.} Eosinophils 4.0 0.0 - 6.0 % CDR HISTORICAL RESULTS Basophils 0.6 0.0 - 3.0 % CDR HISTORICAL RESULTS Neutrophils, abs 0.7(L) 1.8 - 6.6 K/cumm CDR HISTORICAL RESULTS Lymphocytes, abs 2.3 1.2 - 3.3 K/cumm CDR HISTORICAL RESULTS Monocytes, absolute 1.3(H) 0.2 - 1.2 K/cumm CDR HISTORICAL RESULTS Eosinophils, abs 0.2 0.0 - 0.5 K/cumm CDR HISTORICAL RESULTS Basophils, abs 0.0 0.0 - 0.2 K/cumm CDR HISTORICAL RESULTS Blood specimen (specimen) 10/15/2016 8:26 AM CLIENT EXPERIENCE SPECIALIST Regine Garcia MD LAB BLOOD ORDERABLES Final Result CDR HISTORICAL RESULTS * DISCHARGE LABORATORY CUMULATIVE REPORT (10/14/2016) Narrative 10/14/2016 Ordered by an unspecified provider. Historical Provider LAB BLOOD ORDERABLES Chata l Result documented in this encounter Visit Diagnoses Diagnosis Generalized enlarged lymph nodes Enlargement of lymph nodes documented in this encounter
--- OUTSIDE RECORDS SUMMARY | 2024-10-28 06:29 | XMS_ITS | Encounter Summary ---
Author Organization [facility] Facility Care Team Providers Care Servicenow Administrator Developer Name Role Phone Unavailable Primary Care Provider Unavailabl e Encounter Details Date Type Department Care Team (Late st Contact Info) Description 09/16/2016 8:58 AM APPLICATIONS CHEMIST - 09/16/2016 11:59 PM APPLICATIONS CHEMIST [facility] [address] [facility] [address] [place] [address] Other specified abnormal findings of blood chemistry; Abnormal findings on diagnostic imaging of other specified body structures Social History Tobacco Use Types Packs/Day Years Used Date Smoking Tobacco: Never Assessed Sex and Gender Information Value Date Recorded Sex Assigned at Not on file Legal Sex Male 6:28 AM APPLICATIONS CHEMIST Gender Identity Not on file Sexual [...] Priority Date/Time Associated Diagnosis Comments CYTOMEGALOVIRUS (CMV) PCR, CDR Routine 09/16/2016 9:08 AM APPLICATIONS CHEMIST XR CHEST PA LATERAL 2 VIEWS Routine 09/16/2016 9:07 AM APPLICATIONS CHEMIST DISCHARGE LABORATORY CUMULATIVE REPORT 09/16/2016 documented in this encounter Results * Cytomegalovirus (CMV) PCR (09/16/2016 9:08 AM APPLICATIONS CHEMIST) Blood specimen (specimen) (Unknown) 09/16/2016 9:08 AM APPLICATIONS CHEMIST 09/16/2016 1:25 PM APPLICATIONS CHEMIST Impressions CDR HISTORICAL RESULTS - 09/18/2016 7:55 AM APPLICATIONS CHEMIST This assay employs the FDA-cleared Qiagen/Sk[employer] Mom real-time CMV PCR test kit. The PCR [...] or 2.9 to 6.8 log(10) IU/mL. Narrative CDR HISTORICAL RESULTS - 09/18/2016 7:55 AM APPLICATIONS CHEMIST CMV DNA DETECTED (POSITIVE): 986 IU/mL ( 2.99 Log-10 IU/mL) Historical Provider LAB MICROBIOLOGY - [facility] ORDERABLES Final Result CDR HISTORICAL RESULTS * XR Chest Pa Lateral 2 Views (09/16/2016 9:07 AM APPLICATIONS CHEMIST) Anatomical Region Laterality Modality Body, Chest N/A Radiographic Shilpi ging 09/16/2016 9:07 AM APPLICATIONS CHEMIST Narrative 09/21/2016 4:54 PM APPLICATIONS CHEMIST MADAN ZIMMERMAN M.D. MARC CLARK M.D. FINAL REPORT The radiology attending physician has personally reviewed this study, and has reviewed and/or edited this written report and agrees with it. ACC# ??Date Time ??Exam [id number] Sep 16, 2016 09:07:00 [id number] Chest 2 views Frontl & Lat EXAMINATION: ?? CHEST TWO VIEW COMPARISON: 03/30/2015 IMPRESSION: ? Reticular opacities in the left lower lobe, which are new from the prior examination and could represent aspiration pneumonia or less likely atelectasis, are seen. No pneumothorax, pleural effusion, or pulmonary edema. There is mediastinal widening with inferior displacement of the left main bronchus consistent with the patient's known history of lymphadenopathy. Surgical clips overlie the abdomen. Requested By: LENO AGUSTIN M.D. Dictated By: ?? MARC CLARK M.D. ??on Sep 16 2016 ??1:26P This document has been electronically signed by: MADAN ZIMMREMAN M.D. on Sep 21 2016 ??4:54P [id number] Procedure Note Provider, Historical, - 04/09/2017 Stephon GREEN M.D. FINAL REPORT The radiology attending physician has personally reviewed this study, and has reviewed and/or edited this written report and agrees with it. ACC# Date Time Exam [id number] Sep 16, 2016 09:07:00 [id number] Chest 2 views Frontl & Lat EXAMINATION: CHEST TWO VIEW COMPARISON: 03/30/2015 IMPRESSION: Reticular opacities in the left lower lobe, which are new from the prior examination and could represent aspiration pneumonia or less likely atelectasis, are seen. No pneumothorax, pleural effusion, or pulmonary edema. There is mediastinal widening with inferior displacement of the left main bronchus consistent with the patient's known history of lymphadenopathy. Surgical clips overlie the abdomen. Requested By: LENO AGUSTIN M.D. Dictated By: MARC CLARK M.D. on Sep 16 2016 1:26P This document has been electronically signed by: MADAN ZIMMERMAN M.D. on Sep 21 2016 4:54P [id number] us Historical Provider MD IMG XR PROCEDURES Final R esult * DISCHARGE LABORATORY CUMULATIVE REPORT (09/16/2016) Narrative 09/16/2016 Ordered by an unspecified provider. us Historical Provider LAB BLOOD ORDERABLES Chata l Result documented in this encounter Visit Diagnoses Diagnosis Other specified abnormal findings of blood chemistry Abnormal findings on diagnostic imaging of other specified body structures documented in this encounter
--- OUTSIDE RECORDS SUMMARY | 2024-10-28 06:29 | XMS_ITS | Encounter Summary ---
Author Organization [facility] Facility Care Team Providers Care Grader Marker Name Role Phone Unavailable Primary Care Provider Unavailabl e Encounter Details Date Type Department Care Team (Latest Contact Info) Description 09/04/2014 - 09/04/2014 11:59 PM LOCATION AND MEASUREMENT TECHNICIAN [facility] [address] [facility] [address] [place] [id number] Immune thrombocytopenic purpura (HCC); Other neutropenia (CMS/HCC) (HCC) Social History Tobacco Use Types Packs/Day Years Used Date Smoking Tobacco: Never Assessed Sex and Gender Information Value Date Recorded Sex Assigned at Not on file Legal Sex Male 6:28 AM 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 AND 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 Gender Identity Not on file Sexual [...] Diagnosis Comments DISCHARGE LABORATORY CUMULATIVE REPORT Routine 09/05/2014 5:18 PM LOCATION AND MEASUREMENT TECHNICIAN BLOOD LYMPHOCYTE, LEUKEMIA/LYMPHOMA Routine 09/04/2014 7:45 AM LOCATION AND MEASUREMENT TECHNICIAN BLOOD IMMUNE DEFICIENCY Routine 09/04/2014 7:45 AM LOCATION AND MEASUREMENT TECHNICIAN SURGICAL PATHOLOGY 09/04/2014 documented in this encounter Results * Discharge Laboratory Cumulative Report (09/05/2014 5:18 PM LOCATION AND MEASUREMENT TECHNICIAN) 09/05/2014 5:18 PM LOCATION AND MEASUREMENT TECHNICIAN Narrative HISTORICAL RESULTS - 09/05/2014 5:18 PM LOCATION AND MEASUREMENT TECHNICIAN ? [facility] ? Department of Laboratories ? [facility] ? [place] [facility] [address] ?[facility] ?[address] ?[place] [address] Patient Name: ? ADI NCIHOLS J Med Rec Number: ?? [id number] Date of : ?1995 Gender/Age: ? Male 19 years Doctor: ? Regine Garcia M.D. Report Date/Time: 09/05/2014 17:18 ?* Abnormal ??C Critical ??f Footnote ??^ Corrected ??L Low ??H High ?i Interp Data ??@ Reference Lab ?Chart Type: Cumulative ?HEMATOLOGY ?09/04/2014 ?07:45:00 Test ?Units ??Reference [place] Stain ??Test Completed ? Immunophenotyping ? 09/04/2014 ? 07:45:00 Test ? Units ?Reference CD4 Pct ?24 ??L ? % ?31-64 CD8 Pct ?49 ??H ? % ?12-40 CD4/CD8 Ratio ?0.5 ??L ? 0.9-4.4 Leuk/Lym Result ??See Below CD 3 ? Test Completed CD 19 ?Test Completed CD 20 ?Test Completed CD 33 ?Test Completed CD 34 ?Test Completed CD 45 ?Test Completed CD 117 ? Test Completed [place] ?Test Completed Lambda ? Test Completed CD4 Abs ?619 ? cells/mcL ??365-1,294 CD8 Abs ?1246 ??H ? cells/mcL ??187-781 09/04/2014 ??07:45:00 ??Leuk/Lym Result ? See separate Surgical Pathology report. us Historical Provider LAB BLOOD ORDERABLES Chata l Result Performing Organization Address [facility] Co de Phone Number HISTORICAL RESULTS * (ABNORMAL) Blood immune deficiency (09/04/2014 7:45 AM LOCATION AND MEASUREMENT TECHNICIAN) CD4 % 24(L) 31 - 64 % HISTORICAL RESULTS CD4 cells 619 365 - 1294 cells/mcl HISTORICAL RESULTS CD8 % 49(H) 12 - 40 % HISTORICAL RESULTS CD8 cells, abs 1246(H) 187 - 781 cells/mcl HISTORICAL RESULTS CD4/CD8 ratio 0.5(L) 0.9 - 4.4 HISTOR ICAL RESULTS Blood specimen (specimen) 09/04/2014 7:45 AM LOCATION AND MEASUREMENT TECHNICIAN us Regine Garcia MD LAB BLOOD ORDERABLES Final Result Performing Organization Address [facility] Co de Phone Number HISTORICAL RESULTS * Blood lymphocyte, leukemia/lymphoma (09/04/2014 7:45 AM LOCATION AND MEASUREMENT TECHNICIAN) CD3 cells Test Completed HISTORICAL RESULTS CD19 cells Test Completed HISTORICAL RESULTS CD20 cells Test Completed HISTORICAL RESULTS CD33 cells Test Completed HISTORICAL RESULTS CD34 cells Test Completed HISTORICAL RESULTS CD45 cells Test Completed HISTORICAL RESULTS CD117 cells Test Completed HISTORICAL RESULTS [place] cells Test Completed HISTORICAL RESULTS Lambda cells Test Completed HISTORICAL RESULTS [place] stain Test Completed HISTORICAL RESULTS Leukemia/lymp josé manuel panel result See separate Surgical Pathology report HISTORICAL RESULTS Leukocyte, NOS 09/04/2014 7: 45 AM LOCATION AND MEASUREMENT TECHNICIAN us Regine Garcia MD LAB BLOOD ORDERABLES Final Result HISTORICAL RESULTS * Surgical pathology (09/04/2014) Narrative 09/04/2014 Ordered by an unspecified provider. us Historical Provider LAB PATHOLOGY ORDERABLES Final Result documented in this encounter Visit Diagnoses Diagnosis Immune thrombocytopenic purpura (HCC) Immune thrombocytopenic purpura Other neutropenia (CMS/HCC) (HCC) Other neutropenia documented in this encounter
--- OUTSIDE RECORDS SUMMARY | 2024-10-28 06:29 | XMS_ITS | Encounter Summary ---
Author Organization [facility] Facility Care Team Providers Care Aluminum Hydroxide Process Operator Name Role Phone Unavailable Primary Care Provider Unavailabl e Encounter Details Date Type Department Care Team (Late st Contact Info) Description 04/06/2015 - 04/06/2015 11:59 PM CDT Hospital Encounter [facility] Mac Kern MD [address] [facility] [address] [place] [address] Aftercare following organ transplant; Liver replaced by transplant (HCC) Social History Tobacco Use Types Packs/Day Years Used Date Smoking Tobacco: Never Assessed Sex and Gender Information Value Date Recorded Sex Assigned at Not on file 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 Gender Identity Not on file [...] Procedure Name Priority Date/Time Associated Diagnosis Comments PLASMA PROTHROMBIN TIME (PT) Routine 04/06/2015 9:14 AM CDT BLOOD TACROLIMUS (FK-506) DRUG LEVEL Routine 04/06/2015 9:14 AM CDT PLASMA COMPREHENSIVE METABOLIC PANEL Routine 04/06/2015 8:14 AM CDT DISCHARGE LABORATORY CUMULATIVE REPORT 04/06/2015 documented in this encounter Results * Plasma prothrombin time (PT) (04/06/2015 9:14 AM CDT) Prothrombin time (PT) 11.9 10.0 - 13.3 seconds HISTORICAL RESULTS INR 1.07 0.90 - 1.20 HISTORIC AL RESULTS Comment: Interpretive Data Inpatient therapeutic ranges* Atrial fibrillation ?2.0-3.0 INR Venous thrombo-embolism ?2.0-3.0 INR Bioprosthetic heart valve ?* Mechanical heart valve, bileaflet or tilting disk,aortic position ? 2.0-3.0 INR All other,or bileaflet or tilting disk, in mitral position ? 2.5-3.5 INR *See the pharmacy resource directory (PHRED) for an updated copy of the Tool Book at [email or web address] Current Interpretive Data was last revised 2012. Plasma 04/06/2015 9:14 AM CDT us Mac Lyman MD LAB BLOOD ORDERABLES Final Res ult HISTORICAL RESULTS * Blood tacrolimus (FK-506) drug level (04/06/2015 9:14 AM CDT) Tacrolimus 10.2 ng/ml HISTORICA L RESULTS Comment: Interpretive Data This test was developed using an analyte specific reagent. ??Its performance characteristics were determined by the [facility] in a manner consistent with CLIA requirements. This test has not been cleared or approved by the U.S. Food and Drug Administration. Current interpretive data was last revised on 2011. Blood specimen (specimen) 04/06/2015 9:14 AM CDT Mac Lyman MD LAB BLOOD ORDERABLES Final Res ult HISTORICAL RESULTS * (ABNORMAL) Plasma comprehensive metabolic panel (04/06/2015 8:14 AM CDT) Sodium 141 135 - 145 mmol/L HISTORICAL RESULTS K, pl 4.6 3.3 - 4.9 mmol/L HISTORICAL RESULTS Chloride 104 97 - 110 mmol/L HISTORICAL RESULTS CO2 28 22 - 32 mmol/L HISTORICAL RESULTS A. gap 9 0 - 16 mmol/L HISTORICAL RESULTS Glucose 80 70 - 199 mg/dl HISTORICAL RESULTS BUN 9 8 - 25 mg/dl HISTORICAL RESULTS Creatinine 0.88 0.70 - 1.30 mg/dl HISTORICAL RESULTS Calcium 9.4 8.6 - 10.3 mg/dl HISTORICAL RESULTS Protein, pl 8.3 6.5 - 8.5 g/dl HISTORICAL RESULTS Alb 4.3 3.6 - 5.0 g/dl HISTORICAL RESULTS Bilirubin 0.3 0.3 - 1.1 mg/dl HISTORICAL RESULTS Alk phos 183(H) 38 - 126 Units/L HISTORICAL RESULTS AST 57(H) 11 - 47 Units/L HISTORICAL RESULTS ALT 84(H) 7 - 53 Units/L HISTORICAL RESULTS Plasma 04/06/2015 8:14 AM CDT Mac Lyman MD LAB BLOOD ORDERABLES Final Res ult HISTORICAL RESULTS * DISCHARGE LABORATORY CUMULATIVE REPORT (04/06/2015) Narrative 04/06/2015 Ordered by an unspecified provider. [facility] Provider LAB BLOOD ORDERABLES Chata l Result documented in this encounter Visit Diagnoses Diagnosis Aftercare following organ transplant Liver replaced by transplant (HCC) Liver replaced by transplant documented in this encounter
--- OUTSIDE RECORDS SUMMARY | 2024-10-28 06:29 | XMS_ITS | Encounter Summary ---
Author Organization [facility] Healthcare Address [address] [place] [address] Care Team Providers Care Gasoline Service Attendant Name Role Phone Unavailable Primary Care Provider Unavailabl e Encounter Details Date Type Department Care Team (Latest Contact Info) Description 06/16/2016 1:38 PM CDT - 07/14/2016 11:59 PM CDT Hospital Encounter [facility] [phone] Regine Garcia MD [address] [facility] [address] [place] [address] Discharge Disposition: Discharge to home or self care Social History Tobacco Use Types Packs/Day Years Used Date Smoking Tobacco: Never Assessed Sex and Gender Information Value Date Recorded Sex Assigned at Not on file Legal Sex 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
--- OUTSIDE RECORDS SUMMARY | 2024-10-28 06:29 | XMS_ITS | Encounter Summary ---
Author Organization [facility] Facility Care Team Providers Care [employer] Infrastructure Consultant Name Role Phone Unavailable Primary Care Provider Unavailabl e Encounter Details Date Type Department Care Team (Latest Contact Info) Description 11/27/2014 - 10/31/2015 11:59 PM LUNG SPLITTER Hospital Encounter [facility] Regine Pinto MD [address] [facility] [address] [place] [id number] Immune thrombocytopenic purpura (HCC) Social History Tobacco Use Types Packs/Day Years Used Date Smoking Tobacco: Never Assessed Sex and Gender Information Value Date Recorded Sex Assigned at Not on file Legal Sex Male 6:28 AM LUNG SPLITTER Gender Identity Not on file Sexual Orientation [...] Associated Diagnosis Comments DISCHARGE LABORATORY CUMULATIVE REPORT 10/31/2015 SERUM IGM, QUANTITATIVE Routine 07/04/20 15 10:37 AM CDT SERUM IGG, QUANTITATIVE Routine 07/04/20 15 10:37 AM CDT SERUM IGA, QUANTITATIVE Routine 07/04/20 15 10:37 AM CDT BLOOD CELL COUNT Routine 07/04/2015 10:3 6 AM CDT BLOOD CELL COUNT Routine 05/16/2015 8:56 AM CDT CYTOMEGALOVIRUS (CMV) PCR, CDR Routine 05/16/2015 8:54 AM CDT SERUM LACTATE DEHYDROGENASE (LDH) Routine 05/16/2015 8:54 AM CDT SERUM IGM, QUANTITATIVE Routine 05/16/20 15 8:54 AM CDT SERUM IGG, QUANTITATIVE Routine 05/16/20 15 8:54 AM CDT SERUM IGA, QUANTITATIVE Routine 05/16/20 15 8:54 AM CDT PLASMA COMPREHENSIVE METABOLIC PANEL Routine 05/16/2015 8:54 AM CDT ALL MICROBIOLOGY REPORT SECTION Routine 05/16/2015 12:00 AM CDT BLOOD RETICULOCYTE COUNT Routine 03/05/2015 8:32 AM CDT BLOOD CELL COUNT Routine 03/05/2015 8:32 AM CDT SERUM LACTATE DEHYDROGENASE (LDH) Routine 11/29/2014 8:53 AM LUNG SPLITTER SERUM IGM, QUANTITATIVE Routine 11/29/19 15 8:53 AM LUNG SPLITTER SERUM IGG, QUANTITATIVE Routine 11/29/19 15 8:53 AM LUNG SPLITTER SERUM IGA, QUANTITATIVE Routine 11/29/19 15 8:53 AM LUNG SPLITTER PLASMA COMPREHENSIVE METABOLIC PANEL Routine 11/29/2014 8:53 AM LUNG SPLITTER BLOOD RETICULOCYTE COUNT Routine 11/29/2014 8:53 AM LUNG SPLITTER BLOOD CELL COUNT Routine 11/29/2014 8:53 AM LUNG SPLITTER documented in this encounter Results * DISCHARGE LABORATORY CUMULATIVE REPORT (10/31/2015) Narrative 10/31/2015 Ordered by an unspecified provider. Historical Provider LAB BLOOD ORDERABLES Chata l Result * Serum IgM, quantitative (07/04/2015 10:37 AM CDT) IgM 163.0 30.0 - 210.0 mg/dl HISTORICAL RESULTS Serum 07/04/2015 10:3 7 AM CDT Regine Garcia MD LAB BLOOD ORDERABLES Final Result Performing Organization Address [facility] de Phone Number HISTORICAL RESULTS * Serum IgG, quantitative (07/04/2015 10:37 AM CDT) IgG 702.0 700.0 - 1450.0 mg/dl HISTORICAL RESULTS Serum 07/04/2015 10:3 7 AM CDT Regine Garcia MD LAB BLOOD ORDERABLES Final Result Performing Organization Address [facility] de Phone Number HISTORICAL RESULTS * (ABNORMAL) Serum IgA, quantitative (07/04/2015 10:37 AM CDT) IgA <25.0(L) 70.0 - 370.0 mg/dl HISTORICAL RESULTS Serum 07/04/2015 10:3 7 AM CDT Regine Garcia MD LAB BLOOD ORDERABLES Final Result Performing Organization Address [facility] de Phone Number HISTORICAL RESULTS * (ABNORMAL) Blood cell count [CBC] panel, 7 CAM (07/04/2015 10:36 AM CDT) WBC 9.9(H) 3.8 - 9.8 K/cumm HISTORICAL RESULTS Basophils, abs 0.0 0.0 - 0.2 K/cumm HISTORICAL RESULTS RBC 5.00 4.50 - 5.70 M/cumm HISTORICAL RESULTS Hgb 16.0 13.8 - 17.2 g/dl HISTORICAL RESULTS Hct 48.0 40.7 - 50.3 % HISTORICAL RESULTS MCV 96.2 80.0 - 97.6 fl HISTORICAL RESULTS MCH 32.1 26.7 - 33.7 pg HISTORICAL RESULTS MCHC 33.4 32.7 - 35.5 g/dl HISTORICAL RESULTS Rdw 14.6 11.8 - 14.6 % HISTORICAL RESULTS Platelets 383 140 - 440 K/cumm HISTORICAL RESULTS MPV 7.8 6.8 - 10.4 fl HISTORICAL RESULTS Neutrophils 59.7 38.7 - 74.5 % HISTORICAL RESULTS Lymphocytes 22.0 20.0 - 54.3 % HISTORICAL RESULTS Monos 15.0(H) 4.3 - 13.5 % HISTORICAL RESULTS Eosinophils 3.0 0.0 - 6.0 % HISTORICAL RESULTS Basophils 0.3 0.0 - 3.0 % HISTORICAL RESULTS Neutrophils, abs 5.9 1.8 - 6.6 K/cumm HISTORICAL RESULTS Lymphocytes, abs 2.2 1.2 - 3.3 K/cumm HISTORICAL RESULTS Monocytes, absolute 1.5(H) 0.2 - 1.2 K/cumm HISTORICAL RESULTS Eosinophils, abs 0.3 0.0 - 0.5 K/cumm HISTORICAL RESULTS Blood specimen (specimen) 07/04/2015 10:36 AM CDT us Regine Garcia MD LAB BLOOD ORDERABLES Final Result HISTORICAL RESULTS * (ABNORMAL) Blood cell count [CBC] panel, 7 CAM (05/16/2015 8:56 AM CDT) WBC 10.8(H) 3.8 - 9.8 K/cumm HISTORICAL RESULTS RBC 4.18(L) 4.50 - 5.70 M/cumm HISTORICAL RESULTS Hgb 13.7(L) 13.8 - 17.2 g/dl HISTORICAL RESULTS Hct 41.4 40.7 - 50.3 % HISTORICAL RESULTS MCV 99.2(H) 80.0 - 97.6 fl HISTORICAL RESULTS MCH 32.7 26.7 - 33.7 pg HISTORICAL RESULTS MCHC 33.0 32.7 - 35.5 g/dl HISTORICAL RESULTS Rdw 16.8(H) 11.8 - 14.6 % HISTORICAL RESULTS Platelets 285 140 - 440 K/cumm HISTORICAL RESULTS MPV 7.8 6.8 - 10.4 fl HISTORICAL RESULTS Neutrophils 46.1 38.7 - 74.5 % HISTORICAL RESULTS Lymphocytes 34.4 20.0 - 54.3 % HISTORICAL RESULTS Monos 17.5(H) 4.3 - 13.5 % HISTORICAL RESULTS Eosinophils 1.4 0.0 - 6.0 % HISTORICAL RESULTS Basophils 0.6 0.0 - 3.0 % HISTORICAL RESULTS Neutrophils, abs 5.0 1.8 - 6.6 K/cumm HISTORICAL RESULTS Lymphocytes, abs 3.7(H) 1.2 - 3.3 K/cumm HISTORICAL RESULTS Monocytes, absolute 1.9(H) 0.2 - 1.2 K/cumm HISTORICAL RESULTS Eosinophils, abs 0.1 0.0 - 0.5 K/cumm HISTORICAL RESULTS Basophils, abs 0.1 0.0 - 0.2 K/cumm HISTORICAL RESULTS Blood specimen (specimen) 05/16/2015 8:56 AM CDT us Regine Garcia MD LAB BLOOD ORDERABLES Final Result HISTORICAL RESULTS * Cytomegalovirus (CMV) PCR (05/16/2015 8:54 AM CDT) Blood specimen (specimen) (Unknown) 05/16/2015 8:54 AM CDT 05/16/2015 2:09 PM CDT Impressions HISTORICAL RESULTS - 05/20/2015 8:34 AM CDT This assay employs the FDA-cleared Qiagen/Take the Interview real-time CMV PCR test kit. The PCR [...] 6.8 log(10) IU/mL. Narrative HISTORICAL RESULTS - 05/20/2015 8:34 AM CDT Result: ??1,272 copies/mL REFERENCE RANGE: ??Less than 200 copies/mL [facility] [place] [address] * ??* ??* ??* ??* ??* ??* ??* ??* ??* ??* ??* ??* ??* ??* ??* ??* ??* ??* ??* This test was developed and its performance characteristics have been determined by [facility]. ??It has not been cleared or approved by the U.S. Food and Drug Administration. ?? The FDA has determined that such clearance or approval is not necessary. ??Performance characteristics refer to the analytical performance of the test. * ??* ??* ??* ??* ??* ??* ??* ??* ??* ??* ??* ??* ??* ??* ??* ??* ??* ??* ??* Note: ??Please disregard Interpretive Note below; the information provided under interpretive note below is for testing performed ??at [facility] only using a separate assay. us Historical Provider LAB MICROBIOLOGY - GENERA L ORDERABLES Final Result HISTORICAL RESULTS * (ABNORMAL) Plasma comprehensive metabolic panel (05/16/2015 8:54 AM CDT) Sodium 141 135 - 145 mmol/L HISTORICAL RESULTS K, pl 3.8 3.3 - 4.9 mmol/L HISTORICAL RESULTS Chloride 107 97 - 110 mmol/L HISTORICAL RESULTS CO2 26 22 - 32 mmol/L HISTORICAL RESULTS A. gap 8 0 - 16 mmol/L HISTORICAL RESULTS Glucose 68(L) 70 - 199 mg/dl HISTORICAL RESULTS BUN 14 8 - 25 mg/dl HISTORICAL RESULTS Creatinine 0.83 0.70 - 1.30 mg/dl HISTORICAL RESULTS Calcium 9.2 8.6 - 10.3 mg/dl HISTORICAL RESULTS Protein, pl 5.8(L) 6.5 - 8.5 g/dl HISTORICAL RESULTS Alb 3.8 3.6 - 5.0 g/dl HISTORICAL RESULTS Bilirubin 0.6 0.3 - 1.1 mg/dl HISTORICAL RESULTS Alk phos 126 38 - 126 Units/L HISTORICAL RESULTS AST 46 11 - 47 Units/L HISTORICAL RESULTS ALT 78(H) 7 - 53 Units/L HISTORICAL RESULTS Plasma 05/16/2015 8:54 AM CDT Regine Garcia MD LAB BLOOD ORDERABLES Final Result Performing Organization Address [facility] de Phone Number HISTORICAL RESULTS * (ABNORMAL) Serum lactate dehydrogenase (LDH) (05/16/2015 8:54 AM CDT) Lactate dehydrogenase (LDH) 281(H) 100 - 250 Units/L HISTORICAL RESULTS Serum 05/16/2015 8:54 AM CDT Regine Garcia MD LAB BLOOD ORDERABLES Final Result Performing Organization Address [facility] de Phone Number HISTORICAL RESULTS * Serum IgM, quantitative (05/16/2015 8:54 AM CDT) IgM 150.0 30.0 - 210.0 mg/dl HISTORICAL RESULTS Serum 05/16/2015 8:54 AM CDT Regine Garcia MD LAB BLOOD ORDERABLES Final Result Performing Organization Address [facility] de Phone Number HISTORICAL RESULTS * (ABNORMAL) Serum IgG, quantitative (05/16/2015 8:54 AM CDT) IgG 512.0(L) 700.0 - 1450.0 mg/dl HISTORICAL RESULTS Serum 05/16/2015 8:54 AM CDT Regine Garcia MD LAB BLOOD ORDERABLES Final Result HISTORICAL RESULTS * (ABNORMAL) Serum IgA, quantitative (05/16/2015 8:54 AM CDT) IgA <25.0(L) 70.0 - 370.0 mg/dl HISTORICAL RESULTS Comment:{Repeated and verifi ed.} Serum 05/16/2015 8:54 AM CDT us Regine Garcia MD LAB BLOOD ORDERABLES Final Result Performing Organization Address [facility] Co de Phone Number HISTORICAL RESULTS * All Microbiology Report Section (05/16/2015 12:00 AM CDT) 05/16/2015 Narrative HISTORICAL RESULTS - 05/20/2015 10:04 AM CDT ? [facility] ?[place], [place] [address] ? Patient Name: ??ADI NICHOLS ? Med Rec Number: [id number] ? Fin Number: ?[id number] ? Date: ?1995 ? Sex/Age: ? Male 20 years ? Admit Date: ?11/27/2014 ? Discharge Date: 10/31/2015 ? Doctor: ?Regine Garcia ? Facility: ?[facility] ([facility]) ? Location: ?[facility] ?* Abnormal ??A Alert ??f Footnote ??^ Corrected ??L Low ??H High ?i Interp Data ??@ Ref Lab ? Chart Type:Cumulative ?* * * * MICROBIOLOGY - MOLECULAR TESTING * * * * ?PROCEDURE: Cytomegalovirus (CMV) PCR, Quantitative ? SOURCE: Blood ? COLLECTED: 07/16/15 ??0854 ?BODY SITE: ? STARTED: 07/16/15 ??1411 ? FREE TEXT SOURCE: ? FINAL REPORT ? REPORTED: 07/20/15 0833 ? Result: ??1,272 copies/mL REFERENCE RANGE: ??Less than 200 ? copies/mL [facility] [place] [address] * ??* ??* ??* ??* ??* ??* ??* ??* ??* ??* ??* ??* ??* ??* ? * ??* ??* ??* ??* This test was developed and its performance ? characteristics have been determined by [facility]. ??It ? has not been cleared or approved by the U.S. Food and Drug ? Administration. ?? The FDA has determined that such clearance or ? approval is not necessary. ??Performance characteristics refer to ? the analytical performance of the test. * ??* ??* ??* ??* ??* ??* ??* ? * ??* ??* ??* ??* ??* ??* ??* ??* ??* ??* ??* Note: ??Please disregard ? Interpretive Note below; the information provided under ? interpretive note below is for testing performed ??at [facility] ? [facility] only using a separate ? assay. ? ORDER COMMENTS ?* * * ??Interpretive Results ??* * * ? (1)This assay employs the FDA-cleared Qiagen/Take the Interview real-time CMV ? PCR test kit. The [...] and ? its performance characteristics determined by [facility] ? [facility]. It has not been cleared ? or approved by the U.S. Food and Drug Administration. ? Historical Provider LAB MICROBIOLOGY - GENERA L ORDERABLES Final Result Performing Organization Address [facility] de Phone Number HISTORICAL RESULTS * Blood reticulocyte count (03/05/2015 8:32 AM CDT) Retics 1.1 0.5 - 1.5 % HISTORIC AL RESULTS Blood specimen (specimen) 03/05/2015 8:32 AM CDT Regine Garcia MD LAB BLOOD ORDERABLES Final Result Performing Organization Address [facility] Co de Phone Number HISTORICAL RESULTS * (ABNORMAL) Blood cell count [CBC] panel, 7 CAM (03/05/2015 8:32 AM CDT) Platelets 250 140 - 440 K/cumm HISTORICAL RESULTS WBC 5.9 3.8 - 9.8 K/cumm HISTORICAL RESULTS MPV 7.8 6.8 - 10.4 fl HISTORICAL RESULTS RBC 4.79 4.50 - 5.70 M/cumm HISTORICAL RESULTS Neutrophils 28.6(L) 38.7 - 74.5 % HISTORICAL RESULTS Hgb 14.9 13.8 - 17.2 g/dl HISTORICAL RESULTS Lymphocytes 32.8 20.0 - 54.3 % HISTORICAL RESULTS Hct 44.8 40.7 - 50.3 % HISTORICAL RESULTS Monos 29.0(H) 4.3 - 13.5 % HISTORICAL RESULTS MCV 93.5 80.0 - 97.6 fl HISTORICAL RESULTS Eosinophils 9.2(H) 0.0 - 6.0 % HISTORICAL RESULTS MCH 31.0 26.7 - 33.7 pg HISTORICAL RESULTS Basophils 0.4 0.0 - 3.0 % HISTORICAL RESULTS MCHC 33.2 32.7 - 35.5 g/dl HISTORICAL RESULTS Neutrophils, abs 1.7(L) 1.8 - 6.6 K/cumm HISTORICAL RESULTS Rdw 13.8 11.8 - 14.6 % HISTORICAL RESULTS Lymphocytes, abs 2.0 1.2 - 3.3 K/cumm HISTORICAL RESULTS Monocytes, absolute 1.7(H) 0.2 - 1.2 K/cumm HISTORICAL RESULTS Eosinophils, abs 0.5 0.0 - 0.5 K/cumm HISTORICAL RESULTS Basophils, abs 0.0 0.0 - 0.2 K/cumm HISTORICAL RESULTS Blood specimen (specimen) 03/05/2015 8:32 AM CDT us Regine Garcia MD LAB BLOOD ORDERABLES Final Result HISTORICAL RESULTS * (ABNORMAL) Plasma comprehensive metabolic panel (11/29/2014 8:53 AM LUNG SPLITTER) Sodium 142 135 - 145 mmol/L HISTORICAL RESULTS K, pl 4.2 3.3 - 4.9 mmol/L HISTORICAL RESULTS Chloride 107 97 - 110 mmol/L HISTORICAL RESULTS CO2 25 22 - 32 mmol/L HISTORICAL RESULTS A. gap 10 0 - 16 mmol/L HISTORICAL RESULTS Glucose 92 70 - 199 mg/dl HISTORICAL RESULTS BUN 12 8 - 25 mg/dl HISTORICAL RESULTS Creatinine 0.82 0.70 - 1.30 mg/dl HISTORICAL RESULTS Calcium 9.2 8.6 - 10.3 mg/dl HISTORICAL RESULTS Protein, pl 6.5 6.5 - 8.5 g/dl HISTORICAL RESULTS Alb 4.3 3.6 - 5.0 g/dl HISTORICAL RESULTS Bilirubin 0.5 0.3 - 1.1 mg/dl HISTORICAL RESULTS Alk phos 90 38 - 126 Units/L HISTORICAL RESULTS AST 32 11 - 47 Units/L HISTORICAL RESULTS ALT 79(H) 7 - 53 Units/L HISTORICAL RESULTS Plasma 11/29/2014 8:53 AM LUNG SPLITTER Result [facility] Regine Garcia MD LAB BLOOD ORDERABLES Final Result Performing Organization Address [facility] de Phone Number HISTORICAL RESULTS * Serum lactate dehydrogenase (LDH) (11/29/2014 8:53 AM LUNG SPLITTER) Lactate dehydrogenase (LDH) 183 100 - 250 Units/L HISTORICAL RESULTS Serum 11/29/2014 8:53 AM LUNG SPLITTER Result [facility] Regine Garcia MD LAB BLOOD ORDERABLES Final Result Performing Organization Address [facility] de Phone Number HISTORICAL RESULTS * Serum IgM, quantitative (11/29/2014 8:53 AM LUNG SPLITTER) IgM 199.0 30.0 - 210.0 mg/dl HISTORICAL RESULTS Serum 11/29/2014 8:53 AM LUNG SPLITTER us Regine Garcia MD LAB BLOOD ORDERABLES Final Result Performing Organization Address [facility] de Phone Number HISTORICAL RESULTS * (ABNORMAL) Serum IgG, quantitative (11/29/2014 8:53 AM LUNG SPLITTER) IgG 527.0(L) 700.0 - 1450.0 mg/dl HISTORICAL RESULTS Serum 11/29/2014 8:53 AM LUNG SPLITTER Result Cruz Garcia MD LAB BLOOD ORDERABLES Final Result Performing Organization Address [facility] de Phone Number HISTORICAL RESULTS * (ABNORMAL) Serum IgA, quantitative (11/29/2014 8:53 AM LUNG SPLITTER) IgA <25.0(L) 70.0 - 370.0 mg/dl HISTORICAL RESULTS Serum 11/29/2014 8:53 AM LUNG SPLITTER Regine Garcia MD LAB BLOOD ORDERABLES Final Result Performing Organization Address [facility] de Phone Number HISTORICAL RESULTS * Blood reticulocyte count (11/29/2014 8:53 AM LUNG SPLITTER) Retics 1.1 0.5 - 1.5 % HISTORIC AL RESULTS Blood specimen (specimen) 11/29/2014 8:53 AM LUNG SPLITTER Regine Garcia MD LAB BLOOD ORDERABLES Final Result Performing Organization Address [facility] de Phone Number HISTORICAL RESULTS * (ABNORMAL) Blood cell count [CBC] panel, 7 CAM (11/29/2014 8:53 AM LUNG SPLITTER) WBC 9.9(H) 3.8 - 9.8 K/cumm HISTORICAL RESULTS RBC 4.97 4.50 - 5.70 M/cumm HISTORICAL RESULTS Hgb 16.0 13.8 - 17.2 g/dl HISTORICAL RESULTS Hct 47.1 40.7 - 50.3 % HISTORICAL RESULTS MCV 94.9 80.0 - 97.6 fl HISTORICAL RESULTS MCH 32.3 26.7 - 33.7 pg HISTORICAL RESULTS MCHC 34.0 32.7 - 35.5 g/dl HISTORICAL RESULTS Rdw 15.2(H) 11.8 - 14.6 % HISTORICAL RESULTS Platelets 257 140 - 440 K/cumm HISTORICAL RESULTS MPV 7.7 6.8 - 10.4 fl HISTORICAL RESULTS Neutrophils 42.2 38.7 - 74.5 % HISTORICAL RESULTS Lymphocytes 39.6 20.0 - 54.3 % HISTORICAL RESULTS Monos 16.2(H) 4.3 - 13.5 % HISTORICAL RESULTS Eosinophils 1.3 0.0 - 6.0 % HISTORICAL RESULTS Basophils 0.7 0.0 - 3.0 % HISTORICAL RESULTS Neutrophils, abs 4.2 1.8 - 6.6 K/cumm HISTORICAL RESULTS Lymphocytes, abs 3.9(H) 1.2 - 3.3 K/cumm HISTORICAL RESULTS Monocytes, absolute 1.6(H) 0.2 - 1.2 K/cumm HISTORICAL RESULTS Eosinophils, abs 0.1 0.0 - 0.5 K/cumm HISTORICAL RESULTS Basophils, abs 0.1 0.0 - 0.2 K/cumm HISTORICAL RESULTS Blood specimen (specimen) 11/29/2014 8:53 AM LUNG SPLITTER eRgine Garcia MD LAB BLOOD ORDERABLES Final Result HISTORICAL RESULTS documented in this encounter Visit Diagnoses Diagnosis Immune thrombocytopenic purpura (HCC) Immune thrombocytopenic purpura documented in this encounter
--- OUTSIDE RECORDS SUMMARY | 2024-10-28 06:29 | XMS_ITS | Encounter Summary ---
Author Organization [facility] Healthcare Address [address] [place] [address] Care Team Providers Care Diamond Sizer And Sorter Name Role Phone Miscellaneous, Not In File Primary Care Provider Unavailable Encounter Details Date Type Department Care Team (Late st Contact Info) Description 02/16/2017 9:25 AM CDT - 02/16/2017 11:59 PM CDT Hospital Encounter [facility] OP INTERIM [phone] Minoo Nur Chi, MD [address] [facility] [address] [place], [place] [id number] Discharge Disposition: Discharge to home or self care Social History Tobacco Use Types Packs/Day Years Used Date Smoking Tobacco: Never Assessed Sex and Gender Information Value Date Recorded Sex Assigned at Not on file Legal Sex Male 6:28 AM CHAIN SPLITTER Gender Identity Not on file Sexual [...] Associated Diagnosis Comments CT CHEST WO CONTRAST Routine 02/16/2017 6:50 PM CDT XR CHEST PA LATERAL 2 VIEWS Routine 02/16/2017 2:31 PM CDT documented in this encounter Results * CT Chest WO Contrast (02/16/2017 6:50 PM CDT) Anatomical Region Laterality Modality Body N/A Computed Tomogra phy 02/16/2017 6:50 PM CDT Narrative 02/16/2017 6:50 PM CDT MD DAVID MOTTA M.D.PHD. FINAL REPORT The radiology attending physician has personally reviewed this study, and has reviewed and/or edited this written report and agrees with it. 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 FINDINGS: ??Comparison is made to prior CT chest dated 10/15/2016. Surgical changes from liver transplant and lobectomy are seen. There are numerous pulmonary nodules nearly all of which are new from the prior study. Some of these are groundglass others are more solid with ground glass halos. The largest is in the right lower lobe and measures 1.4 x 1.3 cm at slice position -249.5. There is no effusion or pneumothorax. Again seen is widespread supraclavicular, axillary, mediastinal, subcarinal, and hilar lymphadenopathy. ??The heart is normal in size. There is no pericardial effusion. Limited images of the upper abdomen show a liver transplant and surgical changes from splenectomy. Additionally there is aortocaval and portacaval lymphadenopathy. Bone windows are unremarkable. ?? IMPRESSION: 1. Increased diffuse ground glass nodules and soft tissue pulmonary nodules which likely represent an opportunistic infection such as invasive fungal aspergillosis. Less likely, these findings could represent post-transplant lymphoproliferative disorder. Follow up recommended to assess for resolution after treatment. 2. Diffuse lymphadenopathy, unchanged, likely related to opportunistic fungal infection. ?? Requested By: Minoo Nur ??M.D. ? Dictated By: ?? DAVID ROLON M.D.PHD. ??on Feb 16 2017 ??2:32P This document has been electronically signed by: KEL JOSEPH MD on Feb 16 2017 ??3:37P [id number] Procedure Note Miscellaneous, Not In File / Provider, MD Dl - 03/26/2017 MD DAVID MOTTA M.D.PHD. FINAL REPORT The radiology attending physician has personally reviewed this study, and has reviewed and/or edited this written report and agrees with it. 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 FINDINGS: Comparison is made to prior CT chest dated 10/15/2016. Surgical changes from liver transplant and lobectomy are seen. There are numerous pulmonary nodules nearly all of which are new from the prior study. Some of these are groundglass others are more solid with ground glass halos. The largest is in the right lower lobe and measures 1.4 x 1.3 cm at slice position -249.5. There is no effusion or pneumothorax. Again seen is widespread supraclavicular, axillary, mediastinal, subcarinal, and hilar lymphadenopathy. The heart is normal in size. There is no pericardial effusion. Limited images of the upper abdomen show a liver transplant and surgical changes from splenectomy. Additionally there is aortocaval and portacaval lymphadenopathy. Bone windows are unremarkable. IMPRESSION: 1. Increased diffuse ground glass nodules and soft tissue pulmonary nodules which likely represent an opportunistic infection such as invasive fungal aspergillosis. Less likely, these findings could represent post-transplant lymphoproliferative disorder. Follow up recommended to assess for resolution after treatment. 2. Diffuse lymphadenopathy, unchanged, likely related to opportunistic fungal infection. Requested By: Minoo Nur M.D. Dictated By: DAVID ROLON M.D.PHD. on Feb 16 2017 2:32P This document has been electronically signed by: KEL JOSEPH MD on Feb 16 2017 3:37P [id number] us Not In File Miscellaneous IMG CT PROCEDURES Chata l Result * XR Chest Pa Lateral 2 Vw (02/16/2017 2:31 PM CDT) Anatomical Region Laterality Modality Body, Chest N/A Radiographic Shilpi ging 02/16/2017 2:31 PM CDT Narrative 02/16/2017 2:31 PM CDT HERVE EDDY M.D. FINAL REPORT ACC# ??Date Time ??Exam [id number] Feb 16, 2017 09:31:00 41920 Chest 2 views Frontl ??and ??Lat EXAMINATION: ?TWO-VIEW CHEST IMPRESSION: ?? comparison is made to prior study of September 16, 2016. Again seen are surgical changes on the right with some patchy atelectasis. There is no change in diffuse mediastinal lymphadenopathy best seen on the lateral projection. There has been improved aeration in the bases. The heart size and mediastinal contour are unchanged. Requested By: MINOO NUR CHI, M.D. Dictated By: ?? HERVE EDDY M.D. ??on Feb 16 2017 10:10A This document has been electronically signed by: HERVE EDDY M.D. on Feb 16 2017 10:10A Procedure Note Miscellaneous, Not In File / Provider, MD Dl - 03/26/2017 HERVE EDDY M.D. FINAL REPORT ACC# Date Time Exam [id number] Feb 16, 2017 09:31:00 [id number] Chest 2 views Frontl and Lat EXAMINATION: TWO-VIEW CHEST IMPRESSION: comparison is made to prior study of September 16, 2016. Again seen are surgical changes on the right with some patchy atelectasis. There is no change in diffuse mediastinal lymphadenopathy best seen on the lateral projection. There has been improved aeration in the bases. The heart size and mediastinal contour are unchanged. Requested By: MINOO NUR CHI, M.D. Dictated By: HERVE EDDY M.D. on Feb 16 2017 10:10A This document has been electronically signed by: HERVE EDDY M.D. on Feb 16 2017 10:10A us Not In File Miscellaneous IMG XR PROCEDURES Chata l Result documented in this encounter Visit Diagnoses Not on filedocumented in this encounter Care Teams Diamond Sizer And Sorter Relationship Specialty Start Date End Date Miscellaneous, Not In File PCP - General 01/13/17 documented as of this encounter
--- OUTSIDE RECORDS SUMMARY | 2024-10-28 06:29 | XMS_ITS | Encounter Summary ---
Author Organization [facility] Facility Care Team Providers Care Lard Mixer Name Role Phone Unavailable Primary Care Provider Unavailabl e Encounter Details Date Type Department Care Team (Latest Contact Info) Description 06/16/2016 1:38 PM CDT - 07/14/2016 11:59 PM CDT Hospital Encounter [facility] CLINCONRegine Dyer MD [address] [facility] [address] [place] [address] Immune thrombocytopenic purpura (CMS/HCC) Social History Tobacco Use Types Packs/Day Years Used Date Smoking Tobacco: Never Assessed Sex and Gender Information Value Date Recorded Sex Assigned at Not on file 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 Gender Identity Not on file Sexual [...] Procedure Name Priority Date/Time Associated Diagnosis Comments OUTSIDE NEURO CT MR REFERENCE Routine 07/22/2016 2:31 PM CDT XR CONSULT OF OUTSIDE FILMS (PEDS ONLY) Routine 07/22/2016 2:31 PM CDT XR CONSULT OF OUTSIDE FILMS (PEDS ONLY) Routine 07/22/2016 2:31 PM CDT XR CONSULT OF OUTSIDE FILMS (PEDS ONLY) Routine 07/22/2016 2:31 PM CDT BLOOD RETICULOCYTE COUNT Routine 07/14/2016 1:08 PM CDT BLOOD CELL COUNT Routine 07/14/2016 1:08 PM CDT SERUM IGM, QUANTITATIVE Routine 07/14/2016 1:07 PM CDT SERUM IGG, QUANTITATIVE Routine 07/14/2016 1:07 PM CDT SERUM IGA, QUANTITATIVE Routine 07/14/2016 1:07 PM CDT DISCHARGE LABORATORY CUMULATIVE REPORT 06/16/2016 documented in this encounter Results * XR Interpretation Of Outside Films (07/22/2016 2:31 PM CDT) Anatomical Region Laterality Modality N/A Radiographic Shilpi ging 07/22/2016 2:31 PM CDT Narrative 07/22/2016 4:18 PM CDT OUTSIDE IMAGES DISTILLATION OPERATOR HELPER, FINAL REPORT ACC# ??Date Time ??Exam [id number] Jul 22, 2016 14:31:00 [id number] [facility] MSK CT-MR Reference [id number] Jul 22, 2016 14:31:00 43845F [facility] Plain Film Reference [id number] Jul 22, 2016 14:31:00 [id number] [facility] Plain Film Reference [id number] Jul 22, 2016 14:31:00 [id number] [facility] Neuro Reference EXAMINATION: ? Images For Reference Purposes Only IMPRESSION: ? These images are for Reference purposes only and have not been reviewed by [facility] Radiology. ??There will be no report generated by a [facility] Radiologist. Requested By: Dictated By: ?? OUTSIDE IMAGES DISTILLATION OPERATOR HELPER, ?? on Jul 22 2016 ??4:18P This document has been electronically signed by: OUTSIDE IMAGES DISTILLATION OPERATOR HELPER, ??on Jul 22 2016 ??4:18P [id number] Procedure Note Provider, Dl, - 02/28/2017 OUTSIDE IMAGES DISTILLATION OPERATOR HELPER, FINAL REPORT ACC# Date Time Exam [id number] Jul 22, 2016 14:31:00 [id number] [facility] MSK CT-MR Reference [id number] Jul 22, 2016 14:31:00 [id number] [facility] Plain Film Reference [id number] Jul 22, 2016 14:31:00 [id number] [facility] Plain Film Reference [id number] Jul 22, 2016 14:31:00 31541K [facility] Neuro Reference EXAMINATION: Images For Reference Purposes Only IMPRESSION: These images are for Reference purposes only and have not been reviewed by [facility] Radiology. There will be no report generated by a [facility] Radiologist. Requested By: Dictated By: OUTSIDE IMAGES DISTILLATION OPERATOR HELPER, on Jul 22 2016 4:18P This document has been electronically signed by: OUTSIDE IMAGES DISTILLATION OPERATOR HELPER, on Jul 22 2016 4:18P [id number] us Historical Provider IMG XR PROCEDURES Final R esult * XR Interpretation Of Outside Films (07/22/2016 2:31 PM CDT) Anatomical Region Laterality Modality N/A Radiographic Shilpi ging 07/22/2016 2:31 PM CDT Narrative 07/22/2016 4:18 PM CDT OUTSIDE IMAGES DISTILLATION OPERATOR HELPER, FINAL REPORT ACC# ??Date Time ??Exam [id number] Jul 22, 2016 14:31:00 [id number] [facility] MSK CT-MR Reference [id number] Jul 22, 2016 14:31:00 [id number] [facility] Plain Film Reference [id number] Jul 22, 2016 14:31:00 [id number] [facility] Plain Film Reference [id number] Jul 22, 2016 14:31:00 [id number] [facility] Neuro Reference EXAMINATION: ? Images For Reference Purposes Only IMPRESSION: ? These images are for Reference purposes only and have not been reviewed by [facility] Radiology. ??There will be no report generated by a [facility] Radiologist. Requested By: Dictated By: ?? OUTSIDE IMAGES DISTILLATION OPERATOR HELPER, ?? on Jul 22 2016 ??4:18P This document has been electronically signed by: OUTSIDE IMAGES DISTILLATION OPERATOR HELPER, ??on Jul 22 2016 ??4:18P [id number] Procedure Note Provider, Historical, - 02/28/2017 OUTSIDE IMAGES DISTILLATION OPERATOR HELPER, FINAL REPORT ACC# Date Time Exam [id number] Jul 22, 2016 14:31:00 [id number] [facility] MSK CT-MR Reference [id number] Jul 22, 2016 14:31:00 [id number] [facility] Plain Film Reference [id number] Jul 22, 2016 14:31:00 [id number] [facility] Plain Film Reference [id number] Jul 22, 2016 14:31:00 [id number] [facility] Neuro Reference EXAMINATION: Images For Reference Purposes Only IMPRESSION: These images are for Reference purposes only and have not been reviewed by [facility] Radiology. There will be no report generated by a [facility] Radiologist. Requested By: Dictated By: OUTSIDE IMAGES DISTILLATION OPERATOR HELPER, on Jul 22 2016 4:18P This document has been electronically signed by: OUTSIDE IMAGES DISTILLATION OPERATOR HELPER, on Jul 22 2016 4:18P [id number] us Historical Provider IMG XR PROCEDURES Final R esult * OUTSIDE NEURO CT MR REFERENCE (07/22/2016 2:31 PM CDT) Anatomical Region Laterality Modality N/A Computed Tomogra phy 07/22/2016 2:31 PM CDT Narrative 07/22/2016 4:18 PM CDT OUTSIDE IMAGES DISTILLATION OPERATOR HELPER, FINAL REPORT ACC# ??Date Time ??Exam [id number] Jul 22, 2016 14:31:00 11608G [facility] MSK CT-MR Reference [id number] Jul 22, 2016 14:31:00 [id number] [facility] Plain Film Reference [id number] Jul 22, 2016 14:31:00 [id number] [facility] Plain Film Reference [id number] Jul 22, 2016 14:31:00 [id number] [facility] Neuro Reference EXAMINATION: ? Images For Reference Purposes Only IMPRESSION: ? These images are for Reference purposes only and have not been reviewed by [facility] Radiology. ??There will be no report generated by a [facility] Radiologist. Requested By: Dictated By: ?? OUTSIDE IMAGES DISTILLATION OPERATOR HELPER, ?? on Jul 22 2016 ??4:18P This document has been electronically signed by: OUTSIDE IMAGES DISTILLATION OPERATOR HELPER, ??on Jul 22 2016 ??4:18P [id number] Procedure Note Provider, Dl, - 02/28/2017 OUTSIDE IMAGES DISTILLATION OPERATOR HELPER, FINAL REPORT ACC# Date Time Exam [id number] Jul 22, 2016 14:31:00 [id number] [facility] MSK CT-MR Reference [id number] Jul 22, 2016 14:31:00 [id number] [facility] Plain Film Reference [id number] Jul 22, 2016 14:31:00 [id number] [facility] Plain Film Reference [id number] Jul 22, 2016 14:31:00 [id number] [facility] Neuro Reference EXAMINATION: Images For Reference Purposes Only IMPRESSION: These images are for Reference purposes only and have not been reviewed by [facility] Radiology. There will be no report generated by a [facility] Radiologist. Requested By: Dictated By: OUTSIDE IMAGES DISTILLATION OPERATOR HELPER, on Jul 22 2016 4:18P This document has been electronically signed by: OUTSIDE IMAGES DISTILLATION OPERATOR HELPER, on Jul 22 2016 4:18P [id number] Historical Provider MD SZYMANSKI CT PROCEDURES Final R esult * XR Interpretation Of Outside Films (07/22/2016 2:31 PM CDT) Anatomical Region Laterality Modality N/A Radiographic Shilpi ging 07/22/2016 2:31 PM CDT Narrative 07/22/2016 4:18 PM CDT OUTSIDE IMAGES DISTILLATION OPERATOR HELPER, FINAL REPORT ACC# ??Date Time ??Exam [id number] Jul 22, 2016 14:31:00 [id number] [facility] MSK CT-MR Reference [id number] Jul 22, 2016 14:31:00 [id number] [facility] Plain Film Reference [id number] Jul 22, 2016 14:31:00 [id number] [facility] Plain Film Reference [id number] Jul 22, 2016 14:31:00 [id number] [facility] Neuro Reference EXAMINATION: ? Images For Reference Purposes Only IMPRESSION: ? These images are for Reference purposes only and have not been reviewed by [facility] Radiology. ??There will be no report generated by a [facility] Radiologist. Requested By: Dictated By: ?? OUTSIDE IMAGES DISTILLATION OPERATOR HELPER, ?? on Jul 22 2016 ??4:18P This document has been electronically signed by: OUTSIDE IMAGES DISTILLATION OPERATOR HELPER, ??on Jul 22 2016 ??4:18P [id number] Procedure Note Provider, Historical, - 02/28/2017 OUTSIDE IMAGES DISTILLATION OPERATOR HELPER, FINAL REPORT ACC# Date Time Exam [id number] Jul 22, 2016 14:31:00 [id number] [facility] MSK CT-MR Reference [id number] Jul 22, 2016 14:31:00 [id number] [facility] Plain Film Reference [id number] Jul 22, 2016 14:31:00 [id number] [facility] Plain Film Reference [id number] Jul 22, 2016 14:31:00 [id number] [facility] Neuro Reference EXAMINATION: Images For Reference Purposes Only IMPRESSION: These images are for Reference purposes only and have not been reviewed by [facility] Radiology. There will be no report generated by a [facility] Radiologist. Requested By: Dictated By: OUTSIDE IMAGES DISTILLATION OPERATOR HELPER, on Jul 22 2016 4:18P This document has been electronically signed by: OUTSIDE IMAGES DISTILLATION OPERATOR HELPER, on Jul 22 2016 4:18P [id number] us Historical Provider IMG XR PROCEDURES Final R esult * (ABNORMAL) Blood reticulocyte count (07/14/2016 1:08 PM CDT) Retics 1.6(H) 0.5 - 1.5 % CDR HIST ORICAL RESULTS Blood specimen (specimen) 07/14/2016 1:08 PM CDT Regine Garcia MD LAB BLOOD ORDERABLES Final Result CDR HISTORICAL RESULTS * (ABNORMAL) Blood cell count [CBC] panel, 7 CAM (07/14/2016 1:08 PM CDT) WBC 6.8 3.8 - 9.8 K/cumm CDR HISTORICAL RESULTS Hgb 13.9 13.8 - 17.2 g/dl CDR HISTORICAL RESULTS RBC 4.49(L) 4.50 - 5.70 M/cumm CDR HISTORICAL RESULTS Hct 42.2 40.7 - 50.3 % CDR HISTORICAL RESULTS MCV 93.9 80.0 - 97.6 fl CDR HISTORICAL RESULTS MCH 30.9 26.7 - 33.7 pg CDR HISTORICAL RESULTS MCHC 32.9 32.7 - 35.5 g/dl CDR HISTORICAL RESULTS Rdw 14.3 11.8 - 14.6 % CDR HISTORICAL RESULTS Platelets 116(L) 140 - 440 K/cumm CDR HISTORICAL RESULTS MPV 9.6 6.8 - 10.4 fl CDR HISTORICAL RESULTS Neutrophils 40.5 38.7 - 74.5 % CDR HISTORICAL RESULTS Lymphocytes 20.0 20.0 - 54.3 % CDR HISTORICAL RESULTS Monos 38.8(H) 4.3 - 13.5 % CDR HISTORICAL RESULTS Comment:{Result consistent w ith previously reported values.} Eosinophils 0.4 0.0 - 6.0 % CDR HISTORICAL RESULTS Basophils 0.3 0.0 - 3.0 % CDR HISTORICAL RESULTS Neutrophils, abs 2.8 1.8 - 6.6 K/cumm CDR HISTORICAL RESULTS Lymphocytes, abs 1.4 1.2 - 3.3 K/cumm CDR HISTORICAL RESULTS Monocytes, absolute 2.7(H) 0.2 - 1.2 K/cumm CDR HISTORICAL RESULTS Eosinophils, abs 0.0 0.0 - 0.5 K/cumm CDR HISTORICAL RESULTS Basophils, abs 0.0 0.0 - 0.2 K/cumm CDR HISTORICAL RESULTS Blood specimen (specimen) 07/14/2016 1:08 PM CDT Regine Garcia MD LAB BLOOD ORDERABLES Final Result CDR HISTORICAL RESULTS * (ABNORMAL) Serum IgM, quantitative (07/14/2016 1:07 PM CDT) IgM 239(H) 40 - 230 mg/dl CDR HISTORICAL RESULTS Serum 07/14/2016 1:07 PM CDT Regine Garcia MD LAB BLOOD ORDERABLES Final Result Performing Organization Address [facility] de Phone Number CDR HISTORICAL RESULTS * Serum IgG, quantitative (07/14/2016 1:07 PM CDT) IgG 779 700 - 1600 mg/dl CDR HISTORICAL RESULTS Serum 07/14/2016 1:07 PM CDT Regine Garcia MD LAB BLOOD ORDERABLES Final Result Performing Organization Address [facility] de Phone Number CDR HISTORICAL RESULTS * (ABNORMAL) Serum IgA, quantitative (07/14/2016 1:07 PM CDT) IgA <50(L) 70 - 400 mg/dl CDR HISTORICAL RESULTS Serum 07/14/2016 1:07 PM CDT Result [facility] Regine Garcia MD LAB BLOOD ORDERABLES Final Result Performing Organization Address [facility] Co de Phone Number CDR HISTORICAL RESULTS * DISCHARGE LABORATORY CUMULATIVE REPORT (06/16/2016) Narrative 06/16/2016 Ordered by an unspecified provider. Historical Provider LAB BLOOD ORDERABLES Chata l Result documented in this encounter Visit Diagnoses Diagnosis Immune thrombocytopenic purpura (HCC) Immune thrombocytopenic purpura documented in this encounter
--- OUTSIDE RECORDS SUMMARY | 2024-10-28 06:29 | XMS_ITS | Encounter Summary ---
Author Organization [facility] Healthcare Address [address] [place] [address] Care Team Providers Care Premium Cancellation Clerk Name Role Phone Kali Cruz MD Primary Care Provider [phone] Encounter Details Date Type Department Care Team (Latest Contact Info) Description 04/28/2017 7:56 PM CDT - 05/03/2017 8:19 PM CDT Hospital Encounter [address] [id number] Cindy Breen MD [facility] [address] [id number] Discharge Disposition: Discharge to home or self care Social History Tobacco Use Types Packs/Day Years Used Date Smoking Tobacco: Never Assessed Sex and Gender Information Value Date Recorded Sex Assigned at Not on file Legal Sex Male 6:28 AM [employer] Gender Identity Not on file Sexual Orientation Straight 08/22/2021 9: 23 AM CDT documented as of this encounter Last Filed Vital Signs Vital Sign Reading Time Taken Comments Blood Pressure 95/55 04/29/2017 4:05 AM CDT Pulse 80 04/28/2017 8:25 PM CDT Temperature - - Respiratory Rate - - Oxygen Saturation 97% 04/28/2017 8:08 AM CDT Inhaled Oxygen Concentration - - Weight 54.5 kg (120 lb 1.4 oz) 04/28/2017 10:03 PM CDT Height 170.2 cm (5' 7 ) 04/28/2017 10:03 PM CDT Body Mass Index 18.81 04/28/2017 10:03 PM CDT documented in this encounter Medications at Time of Discharge predniSONE (DELTASONE) 20 mg tablet Take 10 mg by mouth. 08/08/2013 09/28/2018 tacrolimus (PROGRAF) 0.5 mg capsule 2 times daily. 10/29/2015 09/28/2018 documented as of this encounter Discharge Disposition Disposition Code Departure Means Destination Discharge to home or self care documented in this encounter Consult Notes * Miscellaneous, Not In File - 04/30/2017 5:00 AM CDT Patient: ADI NICHOLS Reg No: [id number] [facility] #: [id number] Admit Dt.: 04/28/2017 : 1995 Room No: 64514-00 Attending: Cindy Breen M.D. Consulting: Dl Norris M.D. Dictating: Laurent Bhakta M.D. Service Dt: 04/30/2017 OTOLARYNGOLOGY HEAD AND NECK SURGERY CONSULTATION FACILITY ID: [facility] CONSULTING PHYSICIAN Dr. Dl Norris CHIEF COMPLAINT Excisional lymph node biopsy. 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 The hematology/oncology service is concerned that the patient may have post transplant lymphoproliferative disorder. This has previously been worked up with a core needle biopsy. However, the core needle biopsy demonstrated organized lymphoid tissue with florid follicular hyperplasia but was not a definitive diagnosis. Therefore, the primary team is requesting an excisional lymph node biopsy for diagnosis. 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 Lymphopenia with current lymph nodes of 38. PHYSICAL EXAM General: No acute distress. Awake and oriented x3. Eyes: Extraocular movements intact. Visual acuity intact. Nose: External exam normal. Nasal cavity clear. Face: Cranial nerves V and VII normal bilaterally. Oral Cavity: Clear. Cranial nerve XII grossly intact bilaterally. Neck: There is a diffuse lymphadenopathy, worse on the right than the left with multiple lymph nodes that appear mobile. No other redness, swelling, fluctuance, or evidence of infection. IMAGING Reviewed. There was a neck CT scan from April 03 which demonstrated multiple enlarged and heterogeneously enhancing bilateral cervical lymph nodes that were increased in size from 1 week prior. An ultrasound of the neck done today demonstrated extensive cervical lymphadenopathy, worse on the right, with no fluid collection. 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 PLAN 1. Will discuss with primary team regarding platelet levels. Would prefer for greater than 75 for surgery. 2. Will discuss with staff regarding surgical planning and timing. 3. Please keep NPO at midnight in case we are able to add on patient for surgery tomorrow morning. 4. Please call with questions or concerns. ATTENDING ATTESTATION: I have seen and examined the patient at 8:45 on . I have reviewed the resident physician's note and agree with the findings and treatment plan as above. My additions/revisions are:Will biopsy bulky nodes in OR. Electronically Authenticated and Edited by: Laurent Bhakta M.D. On 05/01/2017 02:44 PM CDT Electronically Authenticated by: Laurent Bhakta M.D. On 05/03/2017 01:19 PM CDT Electronically Authenticated and Edited by: Dl Norris MD On 05/07/2017 12:16 PM CDT Laurent Bhakta M.D. Dl Norirs M.D. ARRIAZA:[facility] #[id number] Editing MT: TD: 04/30/2017 05:40 PM cc: Stephon Marie M.D. Ryan Jackson, M.D. documented in this encounter Miscellaneous Notes * Op Note - Provider, MD Dl - 05/03/2017 12:00 AM CDT Patient: ADI NICHOLS Reg No: [id number] [facility] #: [id number] Admit Dt.: 04/28/2017 : 1995 Pt Type: IP Room No: 50502-62 Attending: Cindy Breen M.D. Surgeon: Dl Norris M.D. Dictating: Dl Norris M.D. Service Dt: 05/03/2017 OPERATIVE REPORT FACILITY ID: [facility] SURGEON Dl Norris MD FIRST COMPLEX COMMERCIAL LITIGATION PARALEGAL Aylin Reddy MD PREOPERATIVE DIAGNOSIS Lymphoproliferative disorder. POSTOPERATIVE DIAGNOSIS Lymphoproliferative disorder. PROCEDURE PERFORMED Right cervical lymph node biopsy of the deep cervical chain. OPERATIVE NOTE Mr. Nichols is a patient with a concern for lymphoproliferative disorder. We performed a core needle biopsy that did not reveal a definitive answer and therefore we were requested by the primary team to perform excisional node biopsy. Risks, benefits and alternatives were discussed with the family and the patient including, but not limited to, postoperative bleeding, pain, infection, hematoma, abscess and cranial nerve 11 injury as well as scar placement and cosmetic deformity. He signed the informed consent. He was taken to the operating room. He was intubated and sedated by the anesthesia team. He was handed over to the surgical team. He was prepped and draped in normal sterile fashion. After a final timeout verification, he was injected with 1% lidocaine with epinephrine. An incision was made in the right neck cervical crease just overlying the anterior border of the sternocleidomastoid muscle through the skin subcutaneous tissue, and platysma. The external jugular vein was identified, clamped and ligated. The sternocleidomastoid muscle was skeletonized down to the floor of the neck posteriorly. The internal jugular vein was then identified anteriorly and skeletonized. There were multiple lymph nodes in continuous formation in this entire level 2, 3 region and therefore a large portion of them were removed in this location following the internal jugular vein to the floor of the neck and dividing the specimen off of the floor of the neck, clamping and ligating it up high as there was a vein in this region, and inferiorly it was with blunt technique. Bipolar electrocautery was used for hemostasis as well as silk ties. The wound was irrigated. The hemostasis was confirmed with the Valsalva maneuver. The specimen was sent for fresh to rule out lymphoproliferative disorder as well as culture as the lymph node had some mucoid appearance to it. The wound was closed with 3-0 Vicryl deep sutures and Dermabond for skin. This concluded the case. At the end of the case, all counts were correct. I was present and scrubbed for the entirety of this procedure. Electronically Authenticated and Edited by: Dl Norris MD On 05/07/2017 12:22 PM CDT Dl Norirs M.D. S:[facility] #[id number] Editing MT: ADM TD: 05/03/2017 09:16 PM cc: Stephon Marie M.D. documented in this encounter Plan of Treatment Scheduled Procedures Name Priority Associated Diagnoses Date/Ti me COLONOSCOPY Encounter for screening for colorectal cancer in high risk patient Family history of rectal cancer documented as of this encounter Procedures Procedure Name Priority Date/Time Associated Diagnosis Comments LEUKEMIA/LYMPHOMA STUDIES Routine Gen Lab 05/03/2017 5:00 PM CDT MYCOLOGY (FUNGAL) CULTURE Routine Gen Lab 05/03/2017 3:45 PM CDT AEROBIC AND ANAEROBIC CULTURE AND GRAM STAIN Routine Gen Lab 05/03/2017 3:45 PM CDT MYCOBACTERIOLOGY AFB CULTURE Routine Gen Lab 05/03/2017 3:45 PM CDT SURGICAL PATHOLOGY Routine 05/03/2017 3: 34 PM CDT NADINE BORREGO VIRUS PCR, QUANTITATIVE Routine Gen Lab 05/03/2017 1:10 PM CDT TACROLIMUS LEVEL, TROUGH After X-Ray 05/03/2017 9:20 AM CDT TYPE AND SCREEN After X-Ray 05/03/2017 9:20 AM CDT CBC WITH AUTO DIFFERENTIAL After X-Ray 05/03/2017 4:37 AM CDT MANUAL DIFFERENTIAL After X-Ray 05/03/2017 4 :37 AM CDT PROTIME-INR After X-Ray 05/03/2017 4:37 AM CDT COMPREHENSIVE METABOLIC PANEL After X-Ray 05/03/2017 4:37 AM CDT DISCHARGE LABORATORY CUMULATIVE REPORT 05/03/2017 12:00 AM CDT CYTOGENETICS AND GENOMICS Routine 05/03/2017 12:00 AM CDT SURGICAL PATHOLOGY 05/03/2017 12:00 AM CDT TACROLIMUS LEVEL, TROUGH After X-Ray 05/02/2017 7:49 AM CDT DIFFERENTIAL AUTO After X-Ray 05/01/2017 10:06 PM CDT CBC WITH AUTO DIFFERENTIAL After X-Ray 05/01/2017 10:06 PM CDT BASIC METABOLIC PANEL After X-Ray 05/01/2017 10:06 PM CDT TACROLIMUS LEVEL, TROUGH After X-Ray 05/01/2017 6:10 AM CDT DIFFERENTIAL AUTO After X-Ray 04/30/2017 10:24 PM CDT CBC WITH AUTO DIFFERENTIAL After X-Ray 04/30/2017 10:24 PM CDT PROTIME-INR After X-Ray 04/30/2017 10:24 PM CDT COMPREHENSIVE METABOLIC PANEL After X-Ray 04/30/2017 10:24 PM CDT US SOFT TISSUE HEAD NECK Routine 04/30/2017 3:19 PM CDT CMV DNA QN, PCR After X-Ray 04/30/2017 6:41 AM CDT TACROLIMUS LEVEL, TROUGH After X-Ray 04/30/2017 6:41 AM CDT CBC WITH AUTO DIFFERENTIAL After X-Ray 04/30/2017 6:41 AM CDT MANUAL DIFFERENTIAL After X-Ray 04/30/2017 6 :41 AM CDT APTT After X-Ray 04/30/2017 6:41 AM CDT PROTIME-INR After X-Ray 04/30/2017 6:41 AM CDT GAMMA GT After X-Ray 04/30/2017 6:41 AM CDT HEPATIC FUNCTION PANEL After X-Ray 7 6:41 AM CDT BASIC METABOLIC PANEL After X-Ray 04/30/2017 6:41 AM CDT TACROLIMUS LEVEL, TROUGH After X-Ray 04/29/2017 6:13 AM CDT DIFFERENTIAL AUTO After X-Ray 04/28/2017 10:31 PM CDT CBC WITH AUTO DIFFERENTIAL After X-Ray 04/28/2017 10:31 PM CDT COMPREHENSIVE METABOLIC PANEL After X-Ray 04/28/2017 10:31 PM CDT XR CHEST PA LATERAL 2 VIEWS Routine 04/28/2017 4:41 PM CDT TYPE AND SCREEN STAT 04/28/2017 12:37 PM CDT LACTATE POC Routine Gen Lab 04/28/2017 10:31 AM CDT BLOOD CULTURE RTNm 04/28/2017 10:14 AM CDT URINALYSIS AND REFLEX TO MICROSCOPIC STAT 04/28/2017 10:13 AM CDT DIFFERENTIAL AUTO STAT 04/28/2017 10:06 AM CDT CBC WITH AUTO DIFFERENTIAL STAT 04/28/2017 10:06 AM CDT BLOOD CULTURE RTNm 04/28/2017 10:06 AM CDT LACTATE DEHYDROGENASE STAT 04/28/2017 10:06 AM CDT HEPATIC FUNCTION PANEL STAT 7 10:06 AM CDT BASIC METABOLIC PANEL STAT 04/28/2017 10:06 AM CDT documented in this encounter Results * Leukemia/lymphoma studies (05/03/2017 5:00 PM CDT) CD 3 Test Completed [facility] CD 5 Test Completed [facility] CD 10 Test Completed [facility] CD 19 Test Completed [facility] CD 20 Test Completed [facility] CD 23 Test Completed [facility] CD 45 Test Completed [facility] [place] Test Completed [facility] Lambda Test Completed [facility] Frazier Stain Test Completed [facility] Leukemia/Lymp josé manuel Result See separate Surgical Pathology report. [facility] Tissue 05/03/2017 5:00 PM CDT 05/03/2017 5:07 PM CDT us Cindy Breen MD LAB BLOOD ORDERABLES Chata l Result [facility] Department [place] [address] * Mycobacteriology (AFB) culture (05/03/2017 3:45 PM CDT) Report Final Report: No growth of acid-fast bacilli [facility] Lymph node (Cervical) 05/03/2017 3:45 PM CDT 05/03/2017 4:12 PM CDT Narrative [facility] - 05/06/2017 7:44 AM CDT Right Specimen received on an ESwab. us Cindy Breen MD LAB MICROBIOLOGY - GENERA L ORDERABLES Final Result Performing Organization Address [facility] Co de Phone Number [facility] [place] [address] * Mycology culture (05/03/2017 3:45 PM CDT) Report Final Report: No growth of fungus [facility] Lymph node (Cervical) 05/03/2017 3:45 PM CDT 05/03/2017 4:11 PM CDT Narrative [facility] - 05/04/2017 8:09 AM CDT Right Specimen received on an ESwab. us Cindy Breen MD LAB MICROBIOLOGY - GENERA L ORDERABLES Final Result Performing Organization Address [facility] [place] [address] * Aerobic and anaerobic culture and gram stain (05/03/2017 3:45 PM CDT) Direct Specimen Exam Stain: Rare polymorphonuclear leukocytes seen. No organisms seen. [facility] Report Final Report: No growth [facility] Lymph node (Cervical) 05/03/2017 3:45 PM CDT 05/03/2017 4:10 PM CDT Narrative [facility] - 05/04/2017 7:49 AM CDT Right Specimen received on an ESwab. Specimens submitted from normally sterile body sites will have all bacterial morphotypes identified. Specimens that contain grossly mixed ellie and/or are from body sites that are not normally sterile will be examined for Staphylococcus aureus, Pseudomonas aeruginosa, beta-hemolytic strep, vancomycin-resistant Enterococcus, Bacteroides fragilis, Clostridium perfringens and fungus. If any of these are isolated, the organism will be reported. Current interpretive data was last revised on 2013. us Cindy Breen MD LAB MICROBIOLOGY - GENERA L ORDERABLES Final Result [facility] [place] [address] * Surgical pathology (05/03/2017 3:34 PM CDT) 05/03/2017 3:34 PM CDT 05/03/2017 4:27 PM CDT Narrative 05/11/2017 12:21 PM CDT [facility] Yulisa Garcia [facility] [place] [address] SURGICAL PATHOLOGY REPORT FINAL WITH ADDENDUM Patient Name: ADI NICHOLS ? Address: [address] [place] [address] ??Service: ??Medical ??[place], [place] ??[address] ??Location: ??[place] [address] Taken: 05/03/2017 Gender: M ?? Received: 05/03/2017 : 1995 (Age: 22) ??Hospital #: [id number] Accessioned: 05/03/2017 ?Patient Type: ??[facility] Inpatient Reported: 05/11/2017 ? Physician(s): Dl Norris M.D ? Diagnosis: Lymph node, right cervical , excisional biopsy ? 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 ?- No clonal B-cell population identified mma/05/10/2017 16:58 By this signature, I attest that the above diagnosis is based upon my personal examination of the slides(and/or other material indicated in the diagnosis). ?? Cliff Ribeiro M.D. ??Report Electronically Reviewed and Signed Out By ??Cliff Ribeiro M.D. 05/11/2017 12:21:52 Diagnosis Comment The lymph node shows predominantly organized and retained normal architecture with multifocal expansile lesions consistent with involvement by early post transplant lymphoproliferative disorder (PTLD). This does not represent a polymorphous PTLD, however, the strict diagnostic criteria for a monomorphic PTLD are also not met. 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 This case is shown in consultation to Drs. Cisneros and Curt. Intraoperative Consultation: Received fresh in a container right cervical lymph nodes, rule out lymphoproliferative disorder is 3.0 x 2.5 x 1.5 cm preston rubbery nodule. ??Serially sectioned. ??A piece was sent to flow. ??Remaining for permanent. ??By Roxann Lozoya M.D. ? Microscopic Description and Comment: Microscopic examination reveals multiple fragments of lymphoid tissue with a vaguely nodular pattern. There are multiple subcapsular expansile areas with numerous tingible body macrophages and mitotic figures partially effacing the normal architecture. By immunohistochemistry these expansile areas are positive for CD20 and PAX5, and shows stronger expression of CD10 and BCL-6 compared to the normal background germinal centers. ??In situ hybridization study for JAKOB and kappa and lambda light chain show the B cells in the expansile lesions to be kappa light chain restricted and strongly positive for JAKOB. CD21 is lost within these expansile areas. ??CD138 highlights few subcapsular plasma cells that show normal polyclonal [place] and lambda expression ( ratio 2-3:1) by in situ hybridization. ??Ki-67 shows >90% proliferation within the expansile areas and normal germinal centers. CD30 is negative. The expansile lesional tissue and normal germinal centers are negative for BCL-2. Background lymph node shows residual CD20 positive lymphoid follicles with BCL-6 and CD10 positive germinal centers and retained CD21 follicular dendritic cells. ??Background T cells are positive for CD3 and BCL-2. Flow cytometric analysis reveals that 91% of the total events have scattered characteristics of lymphocytes. ??28% of the total lymphocytes are CD19 and CD20 positive B- cells with normal [place] and lambda light chain expression. 24% of the B cells show coexpression by CD10. There is no significant CD5 or CD23 co-expression. ?Abdiaziz Mccormack M.D. ?History: The patient is a 22-year-old man. ??Clinical diagnosis: Rule out lymphoproliferative disorder. ??Operative procedure: Right excision biopsy lymph node neck. Specimen(s) Received: A: Right cervical lymph nodes, rule out lymphoproliferative disorder B: Lymph node, whole or part, for flow cytometry, right cervical lymph node Gross Description: The specimen is received in one formalin filled container labeled with the patient's name and right cervical lymph nodes, rule out lymphoproliferative disorder. ??It contains a previously sectioned piece of preston pink rubbery soft tissue measuring 4.4 x 2.4 x 0.6 cm in aggregate. ??Labeled A1. ??Jar 1. cnewho/05/05/2017 15:49 ?Yumiko Gomes, BS, CT (ASCP ? By this signature, I attest that the above diagnosis is based upon my personal examination of the slides(and/or other material). ?? Addenda/Procedures Addendum Ordered: 05/13/2017 Status: Signed Out Addendum Complete: 05/13/2017 By: Cliff Ribeiro M.D. Addendum Signed Out: 05/13/2017 ?? Addendum Comment This addendum is issued to comment on the FFPE FISH study results. There is no change to final diagnosis. FISH study (see [id number]) show the presence of c-myc and IgH rearrangement in the foci of PTLD. This finding further attests to the clonal nature of the lesion, however, in contrast to usual high grade B- cell lymphomas with c-myc rearrangements (which tend to grow fast and rapidly efface architecture), these lesions are multifocal and confined to small foci at the time of this biopsy. Close clinical follow up is recommended. By this signature, I attest that the above diagnosis is based upon my personal examination of the slides(and/or other material indicated in the diagnosis). ?? Cliff Ribeiro M.D. ??Report Electronically Reviewed and Signed Out By ??Cliff Ribeiro M.D. ??05/13/2017 13:51:49 ? Addendum Ordered: 05/14/2017 Status: Signed Out Addendum Complete: 05/14/2017 By: Cliff Ribeiro M.D. Addendum Signed Out: 05/17/2017 ?? Addendum Diagnosis A digital scan of the original reference lab report will begin on page two of this addendum. By this signature, I attest that the above diagnosis is based upon my personal examination of the slides(and/or other material indicated in the diagnosis). ?? Cliff Ribeiro M.D. ??Report Electronically Reviewed and Signed Out By ??Cliff Ribeiro M.D. ??05/17/2017 12:55:00 ? Surgical Pathology report is available electronically in Clinical Desktop. The performance characteristics of some immunohistochemical stains, fluorescence in-situ hybridization tests and immunophenotyping by flow cytometry cited in this report (if any) were determined by the Surgical Pathology Department at [facility] as part of an ongoing quality control inspector heading program and in compliance with federally mandated [...] determined by the Surgical Pathology Department of [facility]. ??It has not been cleared or approved by the U. S. Food and Drug Administration. us Dl Norris MD LAB PATHOLOGY ORDERABLES E dited Result - Final * Nadine Borrego virus PCR, quantitative (05/03/2017 1:10 PM CDT) Report Final Report: Nadine-Borrego Virus PCR Quant, B - detected. 2590copies/mL * ??* ??* ??* ??* ??* ??* ??* ??* ??* ??* ??* ??* ??* ??* ??* ??* ??* ??* ??* This test was developed using an analyte specific reagent. Its performance characteristics were determined by [facility] in a manner consistent with CLIA requirements. This test test has not been ??cleared or approved by the U.S. Food and Drug Administration. [facility] Blood specimen (specimen) 05/03/2017 1:10 PM CDT 05/03/2017 6:52 PM CDT [facility]ative [facility] - 05/03/2017 6:52 PM CDT Testing performed by: [facility], [place] [address]. us Cindy Breen MD LAB MICROBIOLOGY - GENERA L ORDERABLES Final Result [facility] [place] [address] * Tacrolimus level trough (05/03/2017 9:20 AM CDT) Tacrolimus, trough 5.0 ng/mL [facility] Comment: Interpretive Data The therapeutic range for tacrolimus can vary by transplant organ type and sample timing but a trough range of 5 - 15 ng/mL is typical. Testing performed by liquid chromatography-tandem mass spectrometry (LC- MS/MS).This test was developed using an analyte specific reagent. Its performance characteristics were determined by the [facility] Laboratory in a manner consistent with CLIA requirements. This test has not been cleared or approved by the U.S. Food and Drug Administration. Current interpretive data was last revised on 2016. Blood specimen (specimen) 05/03/2017 9:20 AM CDT 05/03/2017 10:22 AM CDT us Notinfile Unknown LAB BLOOD ORDERABLES Final Res ult Performing Organization Address City/[facility]/ZIP Co de Phone Number [facility] Department [place] [address] * Type and screen (05/03/2017 9:20 AM CDT) Pathologist [facility] ABO Rh A Positive [facility] Carol, indirect Negative [facility] Blood specimen (specimen) 05/03/2017 9:20 AM CDT 05/03/2017 9:48 AM CDT Melissa Munguia NP LAB BLOOD BANK TEST ORDERABLES Edited Result - Final [facility] [place] [address] * (ABNORMAL) Manual Differential (05/03/2017 4:37 AM CDT) [facility] Neutrophils 29.6 % [facility] Lymphocytes 23.5 % [facility] Monos 13.9 % [facility] Eosinophils 14.8 % [facility] Basophil pct 1.7 % [facility] Myelocyte pct 6.9 % [facility] Promyelocyte pct 8.7 % [facility] Platelet estimate Adequate [facility] Anisocytosis 1+(A) [facility] Macrocytes 3-7/HPF(A) [facility] WBC counted 115 Cells [facility] Variant lymph pct 0.9 % [facility] RBC morphology Present(A) [facility] Neutrophil abs 8.38(H) 1.70 - 6.50 K/cumm [facility] Lymphs, abs 6.91(H) 0.80 - 3.30 K/cumm [facility] Monos, abs 3.94(H) 0.20 - 0.80 K/cumm [facility] Eosinophils, abs 4.19(H) 0.00 - 0.50 K/cumm [facility] Basophils, abs 0.48(H) 0.00 - 0.10 K/cumm [facility] Immature granulocyte, abs 4.42(H) 0.00 - 0.10 K/cumm [facility] Blood specimen (specimen) 05/03/2017 4:37 AM CDT 05/03/2017 5:45 AM CDT us Notinfile Unknown LAB BLOOD ORDERABLES Final Res ult [facility] [place] [address] * (ABNORMAL) Comprehensive metabolic panel (05/03/2017 4:37 AM CDT) Sodium 138 135 - 145 mmol/L [facility] Potassium, pl 4.7 3.3 - 4.9 mmol/L [facility] Comment:Hemolyzed; (+++); po tassium value may be falsely elevated by as much as 0.6 - 1.0 mmol/L. Suggest redraw and reanalysis. CO2 26 22 - 32 mmol/L [facility] BUN 9 8 - 25 mg/dL [facility] Glucose 76 70 - 199 mg/dL [facility] Creatinine 0.73(L) 0.80 - 1.30 mg/dL [facility] Calcium 8.6 8.5 - 10.3 mg/dL [facility] Chloride 105 97 - 110 mmol/L [facility] Albumin 3.2(L) 3.5 - 5.0 g/dL [facility] AST 81(H) 10 - 50 Units/L [facility] Comment:Hemolyzed; result ma y be falsely elevated. ALT 33 7 - 55 Units/L [facility] Alk phos 170(H) 40 - 130 Units/L [facility] Bilirubin, total 0.5 0.1 - 1.2 mg/dL [facility] Protein, pl 8.0 6.5 - 8.5 g/dL [facility] Anion gap 8 2 - 15 mmol/L [facility] Blood specimen (specimen) 05/03/2017 4:37 AM CDT 05/03/2017 5:41 AM CDT us Notinfile Unknown LAB BLOOD ORDERABLES Final Res ult [facility] [place] [address] * Protime-INR (05/03/2017 4:37 AM CDT) PT 11.7 9.2 - 14.0 sec [facility] INR 1.03 0.81 - 1.22 [facility] Comment: Interpretive Data Inpatient therapeutic ranges* Atrial fibrillation ?2.0-3.0 INR Venous thrombo-embolism ?2.0-3.0 INR Bioprosthetic heart valve ?* Mechanical heart valve, bileaflet or tilting disk,aortic position ? 2.0-3.0 INR All other,or bileaflet or tilting disk, in mitral position ? 2.5-3.5 INR *See the pharmacy resource directory (PHRED) for an updated copy of the Tool Book at [email or web address] Current Interpretive Data was last revised 2012. Blood specimen (specimen) 05/03/2017 4:37 AM CDT 05/03/2017 5:35 AM CDT us Notinfile Unknown LAB BLOOD ORDERABLES Final Res ult [facility] [place] [address] * (ABNORMAL) CBC with auto differential (05/03/2017 4:37 AM CDT) WBC 28.31(H) 3.80 - 9.90 K/cumm [facility] RBC 4.10(L) 4.30 - 5.80 M/cumm [facility] Hgb 12.7(L) 13.0 - 17.5 g/dL [facility] Hct 38.9 38.9 - 50.3 % [facility] MCV 94.9 81.3 - 96.4 fL [facility] MCH 31.0 27.1 - 33.3 pg [facility] MCHC 32.6 32.3 - 35.7 g/dL [facility] RDW CV 16.2(H) 11.1 - 14.9 % [facility] RDW SD 57.0(H) 35.7 - 48.1 fL [facility] Plt 230 150 - 400 K/cumm [facility] MPV 11.5 9.1 - 12.3 fL [facility] NRBC 1.0(H) 0.0 - 0.2 % [facility] NRBC abs 0.28(H) 0.00 - 0.01 K/cumm [facility] Blood specimen (specimen) 05/03/2017 4:37 AM CDT 05/03/2017 5:41 AM CDT us Notinfile Unknown LAB BLOOD ORDERABLES Edited Re sult - Final Performing Organization Address City/[facility]/ZIP Co de Phone Number [facility] [place] [address] * SURGICAL PATHOLOGY (05/03/2017 12:00 AM CDT) Narrative 05/03/2017 12:00 AM CDT Ordered by an unspecified provider. us Historical Provider MD LAB PATHOLOGY ORDERABLES Final Result * DISCHARGE LABORATORY CUMULATIVE REPORT (05/03/2017 12:00 AM CDT) Narrative 05/03/2017 12:00 AM CDT Ordered by an unspecified provider. us Historical Provider MD LAB BLOOD ORDERABLES Chata l Result * Cytogenetics/Genomics (05/03/2017 12:00 AM CDT) 05/03/2017 05/11/2017 Narrative 05/13/2017 1:41 PM CDT Patient Information Visit Information Specimen Information ??Name: ADI NICHOLS Culture #: [id number] Gender: [facility] #: [id number] Date Collected: 05/03/2017 : 1995 (Age: 22) Facility: [facility] Date Accessioned: 05/11/2017 Tissue: FFPE FISH Service: [facility] Date Ordered: 05/11/2017 ?? Location: [place] [address] ? Patient Type: [facility] Inpatient ?? Physician(s): Dl Norris M.D ?? Processing: FFPE FISH - Lymph node, right cervical Indication: The patient is a 22-year-old man. ??Clinical diagnosis: Rule out lymphoproliferative disorder. ??Operative procedure: Right excision biopsy lymph node neck. Specimen Quality: Adequate FISH: ??FFPE ??CLINICAL REPORT ?? PARAFFIN EMBEDDED FISH ?? Fluorescence In-situ hybridization (FISH) Results: Specimen # [id number] POSTIVE - ?? FISH result for MYC gene rearrangement POSITIVE - ?? FISH result for IGH gene rearrangement NEGATIVE - ??FISH result for IGH-BCL2 translocation NEGATIVE - ??FISH result for BCL6 gene rearrangement nuc lalo(MYCx2)(5'MYC sep 3'MYCx1)[]/(MYCx3)[]/(5'MYCx3~4,3'MYCx2)(5'MYC con 3'MYCx1)[]/ (MYCx1)(5'MYC sep 3'MYCx1)[]/(MYCx3)(5'MYC sep 3'MYCx1)[]/ (5'MYCx1,3'MYCx2)(5'MYC con 3'MYCx0)[]/(MYCx4)[]/(5'MYCx2,3'MYCx1)(5'MYC con 3'MYCx0)[]/ (5'MYCx2,3'MYCx3)(5'MYC con 3'MYCx1)[]/(5'MYCx4,3'MYCx3)(5'MYC con 3'MYCx2)[]/(MYCx2)[] nuc lalo(IGHx2)(5'IGH sep 3'IGHx1)[]/(IGHx1)(5'IGH sep 3'IGHx1)[]/ (3'IGHx3,5'IGHx2~3)(3'IGH con 5'IGHx1)[]/(3'IGHx2,5'IGHx1)(3'IGH con 5'IGHx0)[]/ (3'IGHx4,5'IGHx3)(3'IGH con 5'IGHx2)[]/(3'IGHx2,5'IGHx3)(3'IGH con 5'IGHx1)[]/(IGHx2)[] nuc lalo(IGHx3,BCL2x1~2)[]/(IGHx1~2,BCL2x3)[]/(IGH,BCL2)x3~4[]/ (IGHx4,BCL2x2)[]/(IGH,BCL2)x2[200] nuc lalo(BCL6x3)[35]/(BCL6x4)[]/(BCL6x2)[145/] Comments MYC ??FISH FISH was performed utilizing a commercial MYC (8q24) breakapart probe set ([employer], [place], [place]). 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 A gain of MYC was seen in 10.5%, the significance of which, if any, is unclear. The above test was developed and its performance characteristics determined by [facility] [facility]. It has not been cleared or approved by the FDA. The laboratory is regulated under CLIA as qualified to perform high- complexity testing. This test is used for clinical purposes. It should not be regarded as investigational or for research. IGH-BA FISH was performed utilizing a commercial IGH (14q32) breakapart probe set ([employer], [place], [place]). 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 The above test was developed and its performance characteristics determined by [facility] [facility]. It has not been cleared or approved by the FDA. The laboratory is regulated under CLIA as qualified to perform high- complexity testing. This test is used for clinical purposes. It should not be regarded as investigational or for research. IGH-BCL2 ??FISH FISH was performed utilizing a commercial IGH-BCL2 dual fusion probe set ([employer], [place], [place]). ??In this particular case, no dual-fused signals were found in 200 interphase cells examined, indicating that there is no t(14;18) translocation involving these two genes. ??A gain of IGH, ranging from 1 to a high of 4 copies, was noted in 18.5%; additionally, a gain of BCL2, ranging from 1 to a high of 4 copies, was noted in 12%, the clinical significance of which, if any, is unclear. ?? The above test was developed and its performance characteristics determined by [facility] [facility]. It has not been cleared or approved by the FDA. The laboratory is regulated under CLIA as qualified to perform high- complexity testing. This test is used for clinical purposes. It should not be regarded as investigational or for research. BCL6 ??FISH FISH was performed utilizing a commercial BCL6 (3q27) break-apart probe set ([employer], [place], [place]). ??In this particular case, there was no split of SpectrumOrange and SpectrumGreen signals in 200 interphase nuclei examined and therefore, no evidence for a BCL6-containing chromosomal rearrangement. A gain of BCL6 was seen in 19%, the significance of which, if any, is unclear. The above test was developed and its performance characteristics determined by [facility]. It has not been [...] Out By Cliff Ribeiro M.D. ??Date Reported: ??05/13/2017 ?? us Dl Norris MD LAB GENETIC TESTING Edited Result - Final * Tacrolimus level trough (05/02/2017 7:49 AM CDT) Tacrolimus, trough 4.6 ng/mL [facility] Comment: Interpretive Data The therapeutic range for tacrolimus can vary by transplant organ type and sample timing but a trough range of 5 - 15 ng/mL is typical. Testing performed by liquid chromatography-tandem mass spectrometry (LC- MS/MS).This test was developed using an analyte specific reagent. Its performance characteristics were determined by the [facility] in a manner consistent with CLIA requirements. This test has not been cleared or approved by the U.S. Food and Drug Administration. Current interpretive data was last revised on 2016. Blood specimen (specimen) 05/02/2017 7:49 AM CDT 05/02/2017 8:10 AM CDT us Angelina Waddell MD LAB BLOOD ORDERABLES Final Re sult [facility] [place] [address] * (ABNORMAL) Differential, auto (05/01/2017 10:06 PM CDT) Pathologist [facility] Neutrophil pct 10.5 % [facility] Comment:Confirmed by smear r tadeow Imm gran pct 0.0 % [facility] Lymphocyte pct 49.2 % [facility] Monocyte pct 31.2 % [facility] Eosinophil pct 8.2 % [facility] Basophil pct 0.9 % [facility] Neutrophil abs 1.28(L) 1.70 - 6.50 K/cumm [facility] Imm gran abs 0.00 0.00 - 0.10 K/cumm [facility] Lymphocyte abs 5.99(H) 0.80 - 3.30 K/cumm [facility] Monocyte abs 3.80(H) 0.20 - 0.80 K/cumm [facility] Eosinophil abs 1.00(H) 0.00 - 0.50 K/cumm [facility] Basophil abs 0.11(H) 0.00 - 0.10 K/cumm [facility] Blood specimen (specimen) 05/01/2017 10:06 PM CDT 05/01/2017 10:57 PM CDT us Angelina Waddell MD LAB BLOOD ORDERABLES Final Re sult [facility] [place] [address] * (ABNORMAL) Basic metabolic panel (05/01/2017 10:06 PM CDT) [facility] Sodium 138 135 - 145 mmol/L [facility] Potassium, pl 3.7 3.3 - 4.9 mmol/L [facility] Chloride 104 97 - 110 mmol/L [facility] CO2 26 22 - 32 mmol/L [facility] BUN 10 8 - 25 mg/dL [facility] Glucose 115 70 - 199 mg/dL [facility] Creatinine 0.78(L) 0.80 - 1.30 mg/dL [facility] Calcium 8.5 8.5 - 10.3 mg/dL [facility] Anion gap 8 2 - 15 mmol/L [facility] Blood specimen (specimen) 05/01/2017 10:06 PM CDT 05/01/2017 10:57 PM CDT us Angelina Waddell MD LAB BLOOD ORDERABLES Final Re sult [facility] [place] [address] * (ABNORMAL) CBC with auto differential (05/01/2017 10:06 PM CDT) Pathologist [facility] WBC 12.18(H) 3.80 - 9.90 K/cumm [facility] RBC 3.76(L) 4.30 - 5.80 M/cumm [facility] Hgb 11.8(L) 13.0 - 17.5 g/dL [facility] Hct 34.7(L) 38.9 - 50.3 % [facility] MCV 92.3 81.3 - 96.4 fL [facility] MCH 31.4 27.1 - 33.3 pg [facility] MCHC 34.0 32.3 - 35.7 g/dL [facility] RDW CV 15.7(H) 11.1 - 14.9 % [facility] RDW SD 52.8(H) 35.7 - 48.1 fL [facility] Plt 238 150 - 400 K/cumm [facility] MPV 11.0 9.1 - 12.3 fL [facility] NRBC 0.6(H) 0.0 - 0.2 % [facility] NRBC abs 0.07(H) 0.00 - 0.01 K/cumm [facility] Blood specimen (specimen) 05/01/2017 10:06 PM CDT 05/01/2017 10:57 PM CDT us Angelina Waddell MD LAB BLOOD ORDERABLES Edited R esult - Final Performing Organization Address [facility]/ZIP Co de Phone Number [facility] [place] [address] * Tacrolimus level trough (05/01/2017 6:10 AM CDT) Tacrolimus, trough 5.0 ng/mL [facility] Comment: Interpretive Data The therapeutic range for tacrolimus can vary by transplant organ type and sample timing but a trough range of 5 - 15 ng/mL is typical. Testing performed by liquid chromatography-tandem mass spectrometry (LC- MS/MS).This test was developed using an analyte specific reagent. Its performance characteristics were determined by the [facility] in a manner consistent with CLIA requirements. This test has not been cleared or approved by the U.S. Food and Drug Administration. Current interpretive data was last revised on 2016. Blood specimen (specimen) 05/01/2017 6:10 AM CDT 05/01/2017 6:51 AM CDT us Notinfile Unknown LAB BLOOD ORDERABLES Final Res ult [facility] [place] [address] * (ABNORMAL) Differential, auto (04/30/2017 10:24 PM CDT) Pathologist [facility] Neutrophil pct 1.9 % [facility] Comment:Consistent with prev ious result Consistent with previous result Imm gran pct 0.0 % [facility] Lymphocyte pct 63.9 % [facility] Monocyte pct 19.7 % [facility] Eosinophil pct 13.3 % [facility] Basophil pct 1.2 % [facility] Neutrophil abs 0.12(C) 1.70 - 6.50 K/cumm [facility] Comment:Critical result call ed to and read back by NICK ARMENTA RN on 04 30 2017 at 2349 to Saleem Wills. Imm gran abs 0.00 0.00 - 0.10 K/cumm [facility] Lymphocyte abs 3.80(H) 0.80 - 3.30 K/cumm [facility] Monocyte abs 1.17(H) 0.20 - 0.80 K/cumm [facility] Eosinophil abs 0.79(H) 0.00 - 0.50 K/cumm [facility] Basophil abs 0.07 0.00 - 0.10 K/cumm [facility] Blood specimen (specimen) 04/30/2017 10:24 PM CDT 04/30/2017 11:01 PM CDT us Notinfile Unknown LAB BLOOD ORDERABLES Final Res ult Performing Organization Address [facility] de Phone Number [facility] [place] [address] * (ABNORMAL) Comprehensive metabolic panel (04/30/2017 10:24 PM CDT) Sodium 140 135 - 145 mmol/L [facility] Potassium, pl 3.8 3.3 - 4.9 mmol/L [facility] CO2 24 22 - 32 mmol/L [facility] BUN 13 8 - 25 mg/dL [facility] Glucose 118 70 - 199 mg/dL [facility] Creatinine 0.73(L) 0.80 - 1.30 mg/dL [facility] Calcium 8.3(L) 8.5 - 10.3 mg/dL [facility] Chloride 109 97 - 110 mmol/L [facility] Albumin 2.9(L) 3.5 - 5.0 g/dL [facility] AST 35 10 - 50 Units/L [facility] ALT 26 7 - 55 Units/L [facility] Alk phos 130 40 - 130 Units/L [facility] Bilirubin, total 0.4 0.1 - 1.2 mg/dL [facility] Protein, pl 8.3 6.5 - 8.5 g/dL [facility] Anion gap 8 2 - 15 mmol/L [facility] Blood specimen (specimen) 04/30/2017 10:24 PM CDT 04/30/2017 11:01 PM CDT us Notinfile Unknown LAB BLOOD ORDERABLES Final Res ult Performing Organization Address [facility]/ZIP Co de Phone Number [facility] [place] [address] * (ABNORMAL) CBC with auto differential (04/30/2017 10:24 PM CDT) WBC 5.95 3.80 - 9.90 K/cumm [facility] RBC 3.78(L) 4.30 - 5.80 M/cumm [facility] Hgb 11.8(L) 13.0 - 17.5 g/dL [facility] Hct 35.7(L) 38.9 - 50.3 % [facility] MCV 94.4 81.3 - 96.4 fL [facility] MCH 31.2 27.1 - 33.3 pg [facility] MCHC 33.1 32.3 - 35.7 g/dL [facility] RDW CV 16.0(H) 11.1 - 14.9 % [facility] RDW SD 55.4(H) 35.7 - 48.1 fL [facility] Plt 112(L) 150 - 400 K/cumm [facility] MPV 11.1 9.1 - 12.3 fL [facility] NRBC 0.0 0.0 - 0.2 % [facility] NRBC abs 0.00 0.00 - 0.01 K/cumm [facility] Blood specimen (specimen) 04/30/2017 10:24 PM CDT 04/30/2017 11:01 PM CDT us Notinfile Unknown LAB BLOOD ORDERABLES Edited Re sult - Final [facility] [place] [address] * Protime-INR (04/30/2017 10:24 PM CDT) Pathologist [facility] PT 12.4 9.2 - 14.0 sec [facility] INR 1.09 0.81 - 1.22 [facility] Comment: Interpretive Data Inpatient therapeutic ranges* Atrial fibrillation ?2.0-3.0 INR Venous thrombo-embolism ?2.0-3.0 INR Bioprosthetic heart valve ?* Mechanical heart valve, bileaflet or tilting disk,aortic position ? 2.0-3.0 INR All other,or bileaflet or tilting disk, in mitral position ? 2.5-3.5 INR *See the pharmacy resource directory (PHRED) for an updated copy of the Tool Book at [email or web address] Current Interpretive Data was last revised 2012. Blood specimen (specimen) 04/30/2017 10:24 PM CDT 04/30/2017 10:53 PM CDT us Notinfile Unknown LAB BLOOD ORDERABLES Final Res ult Performing Organization Address City/State/[facility] Co de Phone Number [facility] [place] [address] * US Head Neck Soft Tissue (04/30/2017 3:19 PM CDT) Anatomical Region Laterality Modality Head and Neck N/A Ultrasound 04/30/2017 3:19 PM CDT Narrative 04/30/2017 3:19 PM CDT YOHAN MICHELE M.D. BEV EVERETT M.D. FINAL REPORT The radiology attending physician has personally reviewed this study, and has reviewed and/or edited this written report and agrees with it. 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 He underwent a right cervical lymph node biopsy on April 06, 2017. He now has bilateral neck pain which is worse on the right at the prior biopsy site. FINDINGS: ?? Focused sonographic examination of the neck was performed. There is extensive cervical lymphadenopathy, worse on the right. There is no fluid collection. No additional abnormality is seen. ?? IMPRESSION: Extensive cervical lymphadenopathy, worse on the right. No fluid collection. No additional abnormality is seen. ?? Requested By: ANGELINA WADDELL M.D. Dictated By: ?? BEV EVERETT M.D. ??on Apr 30 2017 11:14A This document has been electronically signed by: YOHAN MICHELE M.D. on Apr 30 2017 11:32A [id number] Procedure Note Miscellaneous, Not In File / Provider, MD Dl - 04/30/2017 YOHAN MICHELE M.D. BEV EVERETT M.D. FINAL REPORT The radiology attending physician has personally reviewed this study, and has reviewed and/or edited this written report and agrees with it. 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 He underwent a right cervical lymph node biopsy on April 06, 2017. He now has bilateral neck pain which is worse on the right at the prior biopsy site. FINDINGS: Focused sonographic examination of the neck was performed. There is extensive cervical lymphadenopathy, worse on the right. There is no fluid collection. No additional abnormality is seen. IMPRESSION: Extensive cervical lymphadenopathy, worse on the right. No fluid collection. No additional abnormality is seen. Requested By: ANGELINA WADDELL M.D. Dictated By: BEV EVERETT M.D. on Apr 30 2017 11:14A This document has been electronically signed by: YOHAN MICHELE M.D. on Apr 30 2017 11:32A [id number] us Not In File Miscellaneous IMG US PROCEDURES Chata l Result * CMV DNA QN, PCR (04/30/2017 6:41 AM CDT) CMV DNA Detected [facility] Comment: Interpretive Data: The quantifiable range of this assay is 137 IUnits/mL to 9,100,000 IUnits/mL (2.14 log IUnits/mL to 6.96 log IUnits/mL). Testing was performed by the [employer] AmpliPrep/NIA TaqMan CMV Test ([employer] Testing performed at [facility] Current interpretive data was last revised on 17. CMV DNA IU/mL <137 IUnits/mL [facility] CMV DNA log IU/mL <2.14 log IUnits/mL [facility] Blood specimen (specimen) 04/30/2017 6:41 AM CDT 04/30/2017 1:37 PM CDT us Notinfile Unknown LAB MICROBIOLOGY - GENERAL ORD ERABLES Final Result Performing Organization Address [facility] de Phone Number [facility] [place] [address] * Tacrolimus level trough (04/30/2017 6:41 AM CDT) Tacrolimus, trough 3.9 ng/mL [facility] Comment: Interpretive Data The therapeutic range for tacrolimus can vary by transplant organ type and sample timing but a trough range of 5 - 15 ng/mL is typical. Testing performed by liquid chromatography-tandem mass spectrometry (LC- MS/MS).This test was developed using an analyte specific reagent. Its performance characteristics were determined by the [facility] in a manner consistent with CLIA requirements. This test has not been cleared or approved by the U.S. Food and Drug Administration. Current interpretive data was last revised on 2016. Blood specimen (specimen) 04/30/2017 6:41 AM CDT 04/30/2017 6:57 AM CDT us Angelina Waddell MD LAB BLOOD ORDERABLES Final Re sult Performing Organization Address [facility] de Phone Number [facility] [place] [address] * (ABNORMAL) Manual Differential (04/30/2017 6:41 AM CDT) Neutrophils 0.0 % [facility] [facility] Lymphocytes 52.7 % [facility] Monos 30.0 % [facility] Eosinophils 11.8 % [facility] Basophil pct 0.9 % [facility] WBC counted 110 Cells [facility] Variant lymph pct 4.6 % [facility] Neutrophil abs 0.00(C) 1.70 - 6.50 K/cumm [facility] Comment:Critical result call ed to and read back by IRMA SINGH RN on 04 30 2017 at 0807 to Tosha Milton Berman. Lymphs, abs 3.41(H) 0.80 - 3.30 K/cumm [facility] Monos, abs 1.79(H) 0.20 - 0.80 K/cumm [facility] Eosinophils, abs 0.70(H) 0.00 - 0.50 K/cumm [facility] Basophils, abs 0.05 0.00 - 0.10 K/cumm [facility] Immature granulocyte, abs 0.00 0.00 - 0.10 K/cumm [facility] Blood specimen (specimen) 04/30/2017 6:41 AM CDT 04/30/2017 7:24 AM CDT us Notinfile Unknown LAB BLOOD ORDERABLES Final Res ult [facility] [place] [address] * (ABNORMAL) CBC with auto differential (04/30/2017 6:41 AM CDT) Pathologist [facility] WBC 5.95 3.80 - 9.90 K/cumm [facility] RBC 4.00(L) 4.30 - 5.80 M/cumm [facility] Hgb 12.8(L) 13.0 - 17.5 g/dL [facility] Hct 37.5(L) 38.9 - 50.3 % [facility] MCV 93.8 81.3 - 96.4 fL [facility] MCH 32.0 27.1 - 33.3 pg [facility] MCHC 34.1 32.3 - 35.7 g/dL [facility] RDW CV 15.9(H) 11.1 - 14.9 % [facility] RDW SD 54.8(H) 35.7 - 48.1 fL [facility] Plt 38(C) 150 - 400 K/cumm [facility] Comment:No clot detected in sample. Inpatient, result not critical MPV 14.0(H) 9.1 - 12.3 fL [facility] NRBC 0.3(H) 0.0 - 0.2 % [facility] NRBC abs 0.02(H) 0.00 - 0.01 K/cumm [facility] Blood specimen (specimen) 04/30/2017 6:41 AM CDT 04/30/2017 6:57 AM CDT us Notinfile Unknown LAB BLOOD ORDERABLES Edited Re sult - Final Performing Organization Address [facility] de Phone Number [facility] [place] [address] * (ABNORMAL) Hepatic function panel (04/30/2017 6:41 AM CDT) AST 31 10 - 50 Units/L [facility] ALT 26 7 - 55 Units/L [facility] Alk phos 118 40 - 130 Units/L [facility] Bilirubin, total 0.3 0.1 - 1.2 mg/dL [facility] Bilirubin, direct <0.2 0.1 - 0.3 mg/dL [facility] Protein, pl 7.0 6.5 - 8.5 g/dL [facility] Albumin 2.9(L) 3.5 - 5.0 g/dL [facility] Blood specimen (specimen) 04/30/2017 6:41 AM CDT 04/30/2017 6:58 AM CDT us Notinfile Unknown LAB BLOOD ORDERABLES Final Res ult Performing Organization Address [facility]/State/ZIP Co de Phone Number [facility] [place] [address] * (ABNORMAL) Basic metabolic panel (04/30/2017 6:41 AM CDT) [facility] Sodium 141 135 - 145 mmol/L [facility] Potassium, pl 3.9 3.3 - 4.9 mmol/L [facility] Chloride 111(H) 97 - 110 mmol/L [facility] CO2 23 22 - 32 mmol/L [facility] BUN 12 8 - 25 mg/dL [facility] Glucose 88 70 - 199 mg/dL [facility] Creatinine 0.71(L) 0.80 - 1.30 mg/dL [facility] Calcium 7.8(L) 8.5 - 10.3 mg/dL [facility] Anion gap 7 2 - 15 mmol/L [facility] Blood specimen (specimen) 04/30/2017 6:41 AM CDT 04/30/2017 6:58 AM CDT us Notinfile Unknown LAB BLOOD ORDERABLES Final Res ult Performing Organization Address [facility]/[place] [address] * (ABNORMAL) Gamma GT (04/30/2017 6:41 AM CDT) [facility] GGT 60(H) 10 - 50 Units/L [facility] Blood specimen (specimen) 04/30/2017 6:41 AM CDT 04/30/2017 6:58 AM CDT us Francisco Ann MD LAB BLOOD ORDERABLES Final Result Performing Organization Address [facility]/State/[place] [address] * Protime-INR (04/30/2017 6:41 AM CDT) Pathologist [facility] PT 11.3 9.2 - 14.0 sec [facility] INR 0.99 0.81 - 1.22 [facility] Comment: Interpretive Data Inpatient therapeutic ranges* Atrial fibrillation ?2.0-3.0 INR Venous thrombo-embolism ?2.0-3.0 INR Bioprosthetic heart valve ?* Mechanical heart valve, bileaflet or tilting disk,aortic position ? 2.0-3.0 INR All other,or bileaflet or tilting disk, in mitral position ? 2.5-3.5 INR *See the pharmacy resource directory (PHRED) for an updated copy of the Tool Book at [email or web address] Current Interpretive Data was last revised 2012. Blood specimen (specimen) 04/30/2017 6:41 AM CDT 04/30/2017 6:57 AM CDT us Notinfile Unknown LAB BLOOD ORDERABLES Final Res ult [facility] [place] [address] * aPTT (04/30/2017 6:41 AM CDT) aPTT 27.8 25.0 - 37.0 sec [facility] Comment: Interpretive Data Therapeutic heparin range:60.0 - 94.0 sec based on correlation with therapeutic heparin activity range of 0.3 -0.7 Units/mL. Current interpretive data was last revised on 2011. Blood specimen (specimen) 04/30/2017 6:41 AM CDT 04/30/2017 6:57 AM CDT us Notinfile Unknown LAB BLOOD ORDERABLES Final Res ult Performing Organization Address [facility]/ZIP Co de Phone Number [facility] [place] [address] * Tacrolimus level trough (04/29/2017 6:13 AM CDT) Tacrolimus, trough 3.1 ng/mL [facility] Comment: Interpretive Data The therapeutic range for tacrolimus can vary by transplant organ type and sample timing but a trough range of 5 - 15 ng/mL is typical. Testing performed by liquid chromatography-tandem mass spectrometry (LC- MS/MS).This test was developed using an analyte specific reagent. Its performance characteristics were determined by the [facility] in a manner consistent with CLIA requirements. This test has not been cleared or approved by the U.S. Food and Drug Administration. Current interpretive data was last revised on 2016. Blood specimen (specimen) 04/29/2017 6:13 AM CDT 04/29/2017 7:21 AM CDT us Angelina Waddell MD LAB BLOOD ORDERABLES Final Re sult Performing Organization Address [facility] Co de Phone Number [facility] Department [place] [address] * (ABNORMAL) Differential, auto (04/28/2017 10:31 PM CDT) Pathologist [facility] Neutrophil pct 0.6 % [facility] Comment:Consistent with prev ious result Imm gran pct 0.0 % [facility] Lymphocyte pct 54.5 % [facility] Monocyte pct 41.0 % [facility] Eosinophil pct 3.3 % [facility] Basophil pct 0.6 % [facility] Neutrophil abs 0.04(C) 1.70 - 6.50 K/cumm [facility] Comment:leeanna garza rn [id number] . Critical result called to and read back by RUPINDER GARZA RN on 04 29 2017 at 0027 to Saleem Wills. Imm gran abs 0.00 0.00 - 0.10 K/cumm [facility] Lymphocyte abs 3.60(H) 0.80 - 3.30 K/cumm [facility] Monocyte abs 2.71(H) 0.20 - 0.80 K/cumm [facility] Eosinophil abs 0.22 0.00 - 0.50 K/cumm [facility] Basophil abs 0.04 0.00 - 0.10 K/cumm [facility] Blood specimen (specimen) 04/28/2017 10:31 PM CDT 04/28/2017 11:25 PM CDT us Notinfile Unknown LAB BLOOD ORDERABLES Final Res ult [facility] [place] [address] * (ABNORMAL) Comprehensive metabolic panel (04/28/2017 10:31 PM CDT) Sodium 138 135 - 145 mmol/L [facility] Potassium, pl 3.9 3.3 - 4.9 mmol/L [facility] CO2 22 22 - 32 mmol/L [facility] BUN 12 8 - 25 mg/dL [facility] Glucose 127 70 - 199 mg/dL [facility] Creatinine 0.75(L) 0.80 - 1.30 mg/dL [facility] Calcium 8.5 8.5 - 10.3 mg/dL [facility] Chloride 105 97 - 110 mmol/L [facility] Albumin 3.1(L) 3.5 - 5.0 g/dL [facility] AST 41 10 - 50 Units/L [facility] ALT 35 7 - 55 Units/L [facility] Alk phos 159(H) 40 - 130 Units/L [facility] Bilirubin, total 0.5 0.1 - 1.2 mg/dL [facility] Protein, pl 6.5 6.5 - 8.5 g/dL [facility] Anion gap 10 2 - 15 mmol/L [facility] Blood specimen (specimen) 04/28/2017 10:31 PM CDT 04/28/2017 11:25 PM CDT us Notinfile Unknown LAB BLOOD ORDERABLES Final Res ult [facility] [place] [address] * (ABNORMAL) CBC with auto differential (04/28/2017 10:31 PM CDT) WBC 6.61 3.80 - 9.90 K/cumm [facility] RBC 3.78(L) 4.30 - 5.80 M/cumm [facility] Hgb 12.1(L) 13.0 - 17.5 g/dL [facility] Hct 34.9(L) 38.9 - 50.3 % [facility] MCV 92.3 81.3 - 96.4 fL [facility] MCH 32.0 27.1 - 33.3 pg [facility] MCHC 34.7 32.3 - 35.7 g/dL [facility] RDW CV 15.8(H) 11.1 - 14.9 % [facility] RDW SD 53.1(H) 35.7 - 48.1 fL [facility] Plt 9(C) 150 - 400 K/cumm [facility] Comment:Critical result call ed to and read back by RUPINDER GARZA RN on 04 28 2017 at 2342 to [facility]. no clot detected MPV Not Measured 9.1 - 12.3 fL [facility] NRBC 0.0 0.0 - 0.2 % [facility] NRBC abs 0.00 0.00 - 0.01 K/cumm [facility] Blood specimen (specimen) 04/28/2017 10:31 PM CDT 04/28/2017 11:25 PM CDT Notinfile Unknown LAB BLOOD ORDERABLES Edited Re sult - Final [facility] [place] [address] * XR Chest Pa Lateral 2 Views (04/28/2017 4:41 PM CDT) Anatomical Region Laterality Modality Body, Chest N/A Radiographic Shilpi ging 04/28/2017 4:41 PM CDT Narrative 04/28/2017 4:41 PM CDT Stephon MARVIN M.D. FINAL REPORT The radiology attending physician has personally reviewed this study, and has reviewed and/or edited this written report and agrees with it. ACC# ??Date Time ??Exam [id number] Apr 28, 2017 11:41:00 [id number] Chest 2 views Frontl ??and ??Lat EXAMINATION: ?? CHEST 2 VIEW IMPRESSION: ?? Comparison with 03/11/2017 chest radiograph. The lungs are clear with no pneumothorax, pleural effusion, pulmonary edema, or focal consolidation. The cardiomediastinal silhouette is within normal limits. Unchanged clips are seen in the upper abdomen. Requested By: DIANA TORRES M.D. Dictated By: ?? EVELIA TREJO M.D. ??on Apr 28 2017 11:58A This document has been electronically signed by: HERVE EDDY M.D. on Apr 28 2017 ??6:07P [id number] Procedure Note Miscellaneous, Not In File / Provider, MD Dl - 04/28/2017 Stephon MARVIN M.D. FINAL REPORT The radiology attending physician has personally reviewed this study, and has reviewed and/or edited this written report and agrees with it. ACC# Date Time Exam [id number] Apr 28, 2017 11:41:00 [id number] Chest 2 views Frontl and Lat EXAMINATION: CHEST 2 VIEW IMPRESSION: Comparison with 03/11/2017 chest radiograph. The lungs are clear with no pneumothorax, pleural effusion, pulmonary edema, or focal consolidation. The cardiomediastinal silhouette is within normal limits. Unchanged clips are seen in the upper abdomen. Requested By: DIANA TORRES M.D. Dictated By: EVELIA TREJO M.D. on Apr 28 2017 11:58A This document has been electronically signed by: HERVE EDDY M.D. on Apr 28 2017 6:07P [id number] us Not In File Miscellaneous IMG XR PROCEDURES Chata l Result * Type and screen (04/28/2017 12:37 PM CDT) ABO Rh A Positive [facility] Carol, indirect Negative [facility] Comment:Patient has previous antibody history Blood specimen (specimen) 04/28/2017 12:37 PM CDT 04/28/2017 12:47 PM CDT us Diana Torres MD LAB BLOOD BANK TEST ORDERAB LES Edited Result - Final [facility] [place] [address] * Lactate POC (04/28/2017 10:31 AM CDT) Pathologist [facility] Lactate POC i-STAT 1.2 0.7 - 2.2 mmol/L [facility] Blood specimen (specimen) 04/28/2017 10:31 AM CDT 04/28/2017 10:31 AM CDT us Cindy Breen MD LAB BLOOD ORDERABLES Chata l Result Performing Organization Address [facility]/ZIP Co de Phone Number [facility] Department [place] [address] * Blood culture (04/28/2017 10:14 AM CDT) Report Final Report: No growth [facility] Blood specimen (specimen) (Antecubital, left) 04/28/2017 10:14 AM CDT 04/28/2017 12:13 PM CDT Narrative [facility] - 04/29/2017 6:16 AM CDT Blood cultures are incubated for [...] organism identification may be performed using the [employer] Nanosphere Gram Positive Blood Culture Assay. ??The Nanosphere assay detects microbial DNA in positive blood culture broth via hybridization of target DNA to capture oligonucleotides on a microarray. ??This assay has been cleared by the [place] Food and Drug Administration and its performance characteristics have been verified by the [facility]. Current Interpretive Data was last revised on 2014. Diana Torres MD LAB MICROBIOLOGY - GENERAL ORDERABLES Final Result Performing Organization Address City/[facility]/ZIP Co de Phone Number [facility] [place] [address] * Urinalysis reflex to microscopic (04/28/2017 10:13 AM CDT) Color, ur Yellow Yellow [facility] Clarity, ur Clear Clear [facility] Specific gravity, ur 1.012 1.003 - 1.030 [facility] pH, ur 5.0 5.0 - 8.0 [facility] Albumin, ur Negative Trace [facility] Glucose, ur ql Negative Negative [facility] Ketones, ur Negative Negative [facility] Bilirubin, ur Negative Negative [facility] Blood, ur Negative Negative [facility] Urobilinogen, ur <2.0 <2.0 mg/dL [facility] Nitrites, ur Negative Negative [facility] Leukocyte esterase, ur Negative Negative [facility] Urine 04/28/2017 10:1 3 AM CDT 04/28/2017 1:38 PM CDT Diana Torres MD LAB URINE ORDERABLES Final Result Performing Organization Address City/[facility]/ZIP Co de Phone Number [facility] [place] [address] * Blood culture (04/28/2017 10:06 AM CDT) Report Final Report: No growth [facility] Blood specimen (specimen) (Arm, left) 04/28/2017 10:06 AM CDT 04/28/2017 12:14 PM CDT Narrative [facility] - 04/29/2017 6:16 AM CDT Blood cultures are incubated for [...] organism identification may be performed using the [employer] Nanosphere Gram Positive Blood Culture Assay. ??The Nanosphere assay detects microbial DNA in positive blood culture broth via hybridization of target DNA to capture oligonucleotides on a microarray. ??This assay has been cleared by the [place] Food and Drug Administration and its performance characteristics have been verified by the [facility]. Current Interpretive Data was last revised on 2014. us Diana Torres MD LAB MICROBIOLOGY - GENERAL ORDERABLES Final Result [facility] Department [place] [address] * (ABNORMAL) Lactate dehydrogenase (LD) (04/28/2017 10:06 AM CDT) Lactate dehydrogenase (LDH) 398(H) 100 - 250 Units/L [facility] Blood specimen (specimen) 04/28/2017 10:06 AM CDT 04/28/2017 10:26 AM CDT Diana Torres MD LAB BLOOD ORDERABLES Final Result [facility] [place] [address] * (ABNORMAL) Differential, auto (04/28/2017 10:06 AM CDT) Neutrophil pct 0.7 % [facility] Imm gran pct 0.7 % [facility] Lymphocyte pct 54.7 % [facility] Monocyte pct 43.2 % [facility] Eosinophil pct 0.2 % [facility] Basophil pct 0.5 % [facility] Neutrophil abs 0.04(C) 1.70 - 6.50 K/cumm [facility] Comment:Critical result call ed to and read back by JOSE HARTMAN RN on 04 28 2017 at 1119 to Marco A Ho. Imm gran abs 0.04 0.00 - 0.10 K/cumm [facility] Lymphocyte abs 3.15 0.80 - 3.30 K/cumm [facility] Monocyte abs 2.49(H) 0.20 - 0.80 K/cumm [facility] Eosinophil abs 0.01 0.00 - 0.50 K/cumm [facility] Basophil abs 0.03 0.00 - 0.10 K/cumm [facility] Blood specimen (specimen) 04/28/2017 10:06 AM CDT 04/28/2017 10:25 AM CDT us Diana Torres MD LAB BLOOD ORDERABLES Final Result [facility] [place] [address] * (ABNORMAL) CBC with auto differential (04/28/2017 10:06 AM CDT) WBC 5.76 3.80 - 9.90 K/cumm [facility] RBC 4.13(L) 4.30 - 5.80 M/cumm [facility] Hgb 13.2 13.0 - 17.5 g/dL [facility] Hct 37.4(L) 38.9 - 50.3 % [facility] MCV 90.6 81.3 - 96.4 fL [facility] MCH 32.0 27.1 - 33.3 pg [facility] MCHC 35.3 32.3 - 35.7 g/dL [facility] RDW CV 15.4(H) 11.1 - 14.9 % [facility] RDW SD 50.9(H) 35.7 - 48.1 fL [facility] Plt 4(C) 150 - 400 K/cumm [facility] Comment:Critical result call ed to and read back by JOSE HARTMAN(RN) on 04 28 2017 at 1105 to Manuel Salgado. MPV Not Measured 9.1 - 12.3 fL [facility] NRBC 0.0 0.0 - 0.2 % [facility] NRBC abs 0.00 0.00 - 0.01 K/cumm [facility] Blood specimen (specimen) 04/28/2017 10:06 AM CDT 04/28/2017 10:25 AM CDT us Diana Torres MD LAB BLOOD ORDERABLES Edited Result - Final Performing Organization Address [facility] Co de Phone Number [facility] [place] [address] * (ABNORMAL) Hepatic function panel (04/28/2017 10:06 AM CDT) Pathologist [facility] AST 64(H) 10 - 50 Units/L [facility] ALT 44 7 - 55 Units/L [facility] Alk phos 193(H) 40 - 130 Units/L [facility] Bilirubin, total 0.9 0.1 - 1.2 mg/dL [facility] Bilirubin, direct 0.3 0.1 - 0.3 mg/dL [facility] Protein, pl 7.4 6.5 - 8.5 g/dL [facility] Albumin 3.7 3.5 - 5.0 g/dL [facility] Blood specimen (specimen) 04/28/2017 10:06 AM CDT 04/28/2017 10:20 AM CDT us Diana Torres MD LAB BLOOD ORDERABLES Final Result Performing Organization Address [facility]/ZIP Co de Phone Number [facility] [place] [address] * Basic metabolic panel (04/28/2017 10:06 AM CDT) Sodium 135 135 - 145 mmol/L [facility] Potassium, pl 4.4 3.3 - 4.9 mmol/L [facility] Chloride 101 97 - 110 mmol/L [facility] CO2 24 22 - 32 mmol/L [facility] BUN 12 8 - 25 mg/dL [facility] Glucose 100 70 - 199 mg/dL [facility] Creatinine 0.82 0.80 - 1.30 mg/dL [facility] Calcium 8.8 8.5 - 10.3 mg/dL [facility] Anion gap 10 2 - 15 mmol/L [facility] Blood specimen (specimen) 04/28/2017 10:06 AM CDT 04/28/2017 10:20 AM CDT us Diaan Torres MD LAB BLOOD ORDERABLES Final Result [facility] [place] [address] documented in this encounter Visit Diagnoses Not on filedocumented in this encounter Additional Health Concerns Infection Onset Date Last Indicated Resolved Time [facility] Comment:Resolved - Flag applied in error. 03/11/2017 03/11/2017 05/31/2017 12:00 AM CDT documented as of this encounter Care Teams Premium Cancellation Clerk Relationship Specialty Start Date End Date Kali Cruz MD [address] [facility] [address] [place] [address] PCP - General 04/09/17 03/21/19 documented as of this encounter
--- OUTSIDE RECORDS SUMMARY | 2024-10-28 06:29 | XMS_ITS | Encounter Summary ---
Author Organization [facility] Healthcare Address [address] [place] [address] Care Team Providers Care Background Check Coordinator Name Role Phone Unknown, Notinfile Primary Care Provider Unavail able Encounter Details Date Type Department Care Team (Late st Contact Info) Description 03/11/2017 10:21 AM CDT - 03/11/2017 3:57 PM CDT Hospital Encounter [facility] OP INTERIM [phone] Fredi Nur Chi, MD [address] [facility] [address] [place] [address] Discharge Disposition: Discharge to home or self care Social History Tobacco Use Types Packs/Day Years Used Date Smoking Tobacco: Never Assessed Sex and Gender Information Value Date Recorded Sex Assigned at Not on file 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 Gender Identity Not on file Sexual [...] Priority Date/Time Associated Diagnosis Comments XR CHEST 1 VIEW Routine 03/11/2017 8:25 PM CDT AEROBIC CULTURE AND GRAM STAIN Routine Gen Lab 03/11/2017 5:15 PM CDT MYCOLOGY (FUNGAL) CULTURE Routine Gen Lab 03/11/2017 5:15 PM CDT MYCOBACTERIOLOGY AFB CULTURE AND ACID-FAST STAIN Routine Gen Lab 03/11/2017 5:15 PM CDT RESPIRATORY CULTURE, GRAM STAIN Routine Gen Lab 03/11/2017 5:12 PM CDT MYCOLOGY (FUNGAL) CULTURE Routine Gen Lab 03/11/2017 5:12 PM CDT MYCOBACTERIOLOGY AFB CULTURE AND ACID-FAST STAIN Routine Gen Lab 03/11/2017 5:12 PM CDT RESPIRATORY CULTURE AND GRAM STAIN (CF) Routine Gen Lab 03/11/2017 5:12 PM CDT CYTOLOGY Routine 03/11/2017 1:44 PM CDT CYTOLOGY Routine 03/11/2017 10:21 AM CDT SURGICAL PATHOLOGY Routine 03/11/2017 10:21 AM CDT documented in this encounter Results * XR Chest 1 Vw (03/11/2017 8:25 PM CDT) Anatomical Region Laterality Modality Body, Chest N/A Radiographic Shilpi ging 03/11/2017 8:25 PM CDT Narrative 03/11/2017 8:25 PM CDT YVONNE WILKERSON M.D. ASTRID GARCIA M.D. FINAL REPORT The radiology attending physician has personally reviewed this study, and has reviewed and/or edited this written report and agrees with it. ACC# ??Date Time ??Exam [id number] March 11, 2017 15:25:00 [id number] Chest 1 view Frontal ACC# ??Date Time ??Exam [id number] March 11, 2017 15:25:00 [id number] Chest 1 view Frontal EXAMINATION: ?? CHEST ONE VIEW ?? IMPRESSION: ?? Comparison is made to previous chest radiograph dated 02/16/2017. Multiple surgical clips overlie the upper abdomen. Mild right basilar atelectasis is noted. Mild right basilar airspace opacity likely represent bronchoscopy changes. Bilateral hilar lymphadenopathy is noted better seen on CT dated 02/16/2017. The heart size is normal. There is no pneumothorax. ?? Requested By: FREDI NUR ??MKelechi. ? Dictated By: ?? ASTRID GARCIA M.D. ??on Mar 11 2017 ??4:27P This document has been electronically signed by: YVONNE WILKERSON M.D. on Mar 11 2017 ??6:45P [id number] Procedure Note Miscellaneous, Not In File / Provider, MD Dl - 03/27/2017 YVONNE WILKERSON M.D. ASTRID GARCIA M.D. FINAL REPORT The radiology attending physician has personally reviewed this study, and has reviewed and/or edited this written report and agrees with it. ACC# Date Time Exam [id number] March 11, 2017 15:25:00 [id number] Chest 1 view Frontal ACC# Date Time Exam [id number] March 11, 2017 15:25:00 [id number] Chest 1 view Frontal EXAMINATION: CHEST ONE VIEW IMPRESSION: Comparison is made to previous chest radiograph dated 02/16/2017. Multiple surgical clips overlie the upper abdomen. Mild right basilar atelectasis is noted. Mild right basilar airspace opacity likely represent bronchoscopy changes. Bilateral hilar lymphadenopathy is noted better seen on CT dated 02/16/2017. The heart size is normal. There is no pneumothorax. Requested By: FREDI NUR M.D. Dictated By: ASTRID GARCIA M.D. on Mar 11 2017 4:27P This document has been electronically signed by: YVONNE WILKERSON M.D. on Mar 11 2017 6:45P [id number] us Not In File Miscellaneous IMG XR PROCEDURES Chata l Result * Mycobacteriology (AFB) culture and acid-fast stain (03/11/2017 5:15 PM CDT) Direct Specimen Exam Stain: No Acid-fast bacilli seen [facility] Report Final Report: No growth of acid-fast bacilli [facility] Lymph node (Lung) 03/11/2017 5:15 PM CDT 03/11/2017 5:17 PM CDT Narrative [facility] - 03/15/2017 6:48 AM CDT aspirate Fredi Nur MD LAB MICROBIOLOGY - GENERAL ORDERABLES Final Result Performing Organization Address City/[facility]/ZIP Co de Phone Number [facility] Department [place] [address] * Mycology culture (03/11/2017 5:15 PM CDT) Report Final Report: No growth of fungus [facility] Lymph node (Lung) 03/11/2017 5:15 PM CDT 03/11/2017 5:16 PM CDT Narrative [facility] - 03/12/2017 7:58 AM CDT aspirate us Fredi Nur MD LAB MICROBIOLOGY - GENERAL ORDERABLES Final Result Performing Organization Address City/[facility]/ZIP Co de Phone Number [facility] Department [place] [address] * Aerobic culture and gram stain (03/11/2017 5:15 PM CDT) Direct Specimen Exam Stain: Rare polymorphonuclear leukocytes seen. No organisms seen. [facility] Report Final Report: Rare Streptococcus mitis group Routine susceptibility testing not performed. Rare Moraxella nonliquefaciens Routine susceptibility testing not performed. [facility] Lymph node (Lung) 03/11/2017 5:15 PM CDT 03/11/2017 5:15 PM CDT Narrative [facility] - 03/12/2017 8:33 AM T aspirate Specimens submitted from normally sterile body sites will have all bacterial morphotypes identified. Specimens that contain grossly mixed ellie and/or are from body sites that are not normally sterile will be examined for Staphylococcus aureus, Pseudomonas aeruginosa, beta-hemolytic strep, vancomycin-resistant Enterococcus and fungus. If any of these are isolated, the organism will be reported. Current interpretive data was last revised on 2013. Fredi Nur MD LAB MICROBIOLOGY - GENERAL ORDERABLES Final Result Performing Organization Address [facility]/ZIP Co de Phone Number [facility] [place] [address] * Respiratory Culture, Gram Stain (03/11/2017 5:12 PM CDT) Direct Specimen Exam Stain: Cytospin gram stain shows: Rare polymorphonuclear leukocytes seen. Few squamous epithelial cells seen. Rare mixed bacterial ellie seen on Gram stain. Other cellular material present. [facility] Report Final Report: Greater than or equal to 1,000 colonies/ml of Haemophilus influenzae , Beta lactamase negative Greater than or equal to 1,000 colonies/ml of Staphylococcus aureus Methicillin susceptible (MSSA) by penicillin binding protein 2a (PBP2a) testing. Plus growth of clinically insignificant bacterial ellie. [facility] Organism STAPHYLOCOCCUS AUREUS [facility] Bronchoalveolar lavage 03/11 5:12 PM CDT 03/11/2017 5:12 PM CDT Narrative [facility] - 03/12/2017 8:37 AM T Organism Antibiotic Method Susceptibility Staphylococcus aureus Vancomycin INTERPRETATION Susceptible Staphylococcus aureus Trimethoprim with Sulfamethoxazole INTERPRETATION Susceptible Staphylococcus aureus Linezolid INTERPRETATION Susceptible Staphylococcus aureus Doxycycline INTERPRETATION Susceptible Staphylococcus aureus Clindamycin INTERPRETATION Susceptible Staphylococcus aureus Erythromycin INTERPRETATION Susceptible Staphylococcus aureus Oxacillin INTERPRETATION Susceptible Staphylococcus aureus Cefazolin INTERPRETATION Susceptible Staphylococcus aureus Ceftriaxone INTERPRETATION Susceptible Fredi Nur MD LAB MICROBIOLOGY - GENERAL ORDERABLES Final Result Performing Organization Address [facility]/ZIP Co de Phone Number [facility] [place] [address] * Mycobacteriology (AFB) culture and acid-fast stain (03/11/2017 5:12 PM CDT) Direct Specimen Exam Stain: No Acid-fast bacilli seen [facility] Report Final Report: No growth of acid-fast bacilli [facility] Bronchoalveolar lavage 03/11 5:12 PM CDT 03/11/2017 5:13 PM CDT Narrative [facility] - 03/15/2017 6:48 AM CDT us Fredi Nur MD LAB MICROBIOLOGY - GENERAL ORDERABLES Final Result Performing Organization Address City/[facility]/ZIP Co de Phone Number [facility] Department [place] [address] * Mycology culture (03/11/2017 5:12 PM CDT) Report Final Report: No growth of fungus [facility] Bronchoalveolar lavage 03/11 5:12 PM CDT 03/11/2017 5:13 PM CDT [facility] - 03/12/2017 7:58 AM CDT us Fredi Nur MD LAB MICROBIOLOGY - GENERAL ORDERABLES Final Result Performing Organization Address City/[facility]/ZIP Co de Phone Number [facility] Department [place] [address] * Respiratory culture and gram stain (CF) (03/11/2017 5:12 PM CDT) Organism STAPHYLOCOCCUS AUREUS [facility] Bronchoalveolar lavage 03/11 5:12 PM CDT 03/11/2017 5:12 PM CDT [facility] - 03/12/2017 8:37 AM CDT Organism Antibiotic Method Susceptibility Staphylococcus aureus Vancomycin INTERPRETATION Susceptible Staphylococcus aureus Trimethoprim with Sulfamethoxazole INTERPRETATION Susceptible Staphylococcus aureus Linezolid INTERPRETATION Susceptible Staphylococcus aureus Doxycycline INTERPRETATION Susceptible Staphylococcus aureus Clindamycin INTERPRETATION Susceptible Staphylococcus aureus Erythromycin INTERPRETATION Susceptible Staphylococcus aureus Oxacillin INTERPRETATION Susceptible Staphylococcus aureus Cefazolin INTERPRETATION Susceptible Staphylococcus aureus Ceftriaxone INTERPRETATION Susceptible us Fredi Nur MD LAB MICROBIOLOGY - GENERAL ORDERABLES Final Result [facility] Department [place] [address] * Cytology (03/11/2017 1:44 PM CDT) 03/11/2017 1:44 PM CDT 03/11/2017 2:11 PM CDT [facility] SYSTEM - 03/15/2017 5:11 PM CDT [facility] Yulisa Garcia Laboratory [place] [address] CYTOPATHOLOGY REPORT FINAL Patient Name: ADI NICHOLS Address: [address] [place] [address] Service: [facility] ??[place], [place] ??[address] Location: [facility] Taken: 03/11/2017 Gender: ??M Received: 03/11/2017 : 1995 (Age: 22) Hospital #: [id number] Accessioned: 03/11/2017 ?? Patient Type: [facility] Reported: 03/15/2017 Physician(s): ??Fredi Nur M.D. ? FINAL DIAGNOSIS A. ??Lymph node, subcarina, endobronchial ultrasound guided fine needle aspiration: ? - Negative for malignancy ? - Lymphoid tissue present ? - No evidence of granulomas ?? B. ??Lymph node, subcarina, fine needle aspiration, for flow cytometery: ?- No monoclonal B cell population detected (see comment) Comments Flow cytometric analysis performed on subcarinal lymph node shows 86% events in the lymphocytic gate, 16% of which are CD19 positive (B lymphocytes). The B lymphocytes are polytypic for kappa and lambda light chains, with kappa to lambda ratio of 1.4. The B lymphocytes are negative for CD5, CD10 and CD23. Evaluation of the cytospin reveals predominantly acellular debris. The cytospin and flow cytometry were reviewed by Dr. Ricks, who attests that he examined the cytospin preparation and flow cytometry and confirmed the interpretation. JF hxz/03/12/2017 18:05 By this signature, I attest that the above diagnosis is based upon my personal examination of the slides(and/or other material indicated in the diagnosis). ?? Milagro Alanis M.D. DANNY Mora(ASCP) Report Electronically Reviewed and Signed Out By ??Milagro Alanis M.D. 03/15/2017 17:11:50 Gross Description A. ??Lymph node, subcarina, endobronchial ultrasound guided fine needle aspiration: ??3 Pap stained smear(s) and 3 Diff-Quik stained smear(s) with 35 mL RPMI with needle rinse tube sent to flow cytometry. Aspirated by clinician. ??(mng) Clinical Diagnosis and History The patient is a 22 year old man with a history of liver transplant now with lung lesions and adenopathy. Immediate Evaluation A. ??Lymph node, subcarina, endobronchial ultrasound guided fine needle aspiration: Evaluation Episode 1 Overall Adequacy: Satisfactory for interpretation Total Evaluation Episodes: 1 Milagro Alanis M.D. 03/11/2017 ?By this signature, I attest that the above diagnosis is based upon my personal examination of the slides(and/or other material). ? Lizz Salas MD PhD This Cytology report is available electronically in Clinical Desktop. The performance characteristics of some immunohistochemical stains, in-situ hybridization and fluorescence in-situ hybridization tests and immunophenotyping by flow cytometry cited in this report (if any) were determined by the Surgical Pathology Department at [facility] as part of an ongoing manager quality program and in compliance with federally [...] determined by the Surgical Pathology Department of [facility]. ??It has not been cleared or approved by the U. S. Food and Drug Administration. us Fredi Nur MD LAB CYTOLOGY ORDERABLES Fi nal Result [facility] [address] [place] [address] * Surgical pathology (03/11/2017 10:21 AM CDT) 03/11/2017 10:2 1 AM CDT 03/11/2017 5:11 PM CDT [facility] LAB SYSTEM - 03/18/2017 7:09 PM CDT [facility] Yulisa Garcia Laboratory [place] [address] SURGICAL PATHOLOGY REPORT FINAL Patient Name: ADI NICHOLS ? Address: [address] [place] [address] ??Service: ??Internal Medicine ??[place], [place] ??[address] ??Location: ??[facility] Taken: 03/11/2017 Gender: M ?? Received: 03/11/2017 : 1995 (Age: 22) ??Hospital #: [id number] Accessioned: 03/12/2017 ?Patient Type: ??[facility] SDS Reported: 03/18/2017 ? Physician(s): Fredi Nur M.D. ? Diagnosis: Lymph nodes, subcarinal, needle core biopsy ? - Atypical lymphoid infiltrate ? - See comment vxm/03/17/2017 13:16 By this signature, I attest that the above diagnosis is based upon my personal examination of the slides(and/or other material indicated in the diagnosis). ?? Iliana Cisneros M.D., Ph.D. ??Report Electronically Reviewed and Signed Out By ??Iliana Cisneros M.D., Ph.D. 03/18/2017 19:09:11 Diagnosis Comment The findings are consistent with atypical lymphoid infiltrate. Further characterization is precluded by small size of the biopsy and crush artifact. The findings are suspicious for involvement by polymorphous post-transplant lymphoproliferative disorder or low grade B cell lymphoma. Excisional biopsy is needed for full evaluation, if clinically indicated. Correlation with clinical and radiological findings is recommended. This case was reviewed at the Hematopathology consensus conference on 03/17/17 where Boston Elias M.D., Dr. Delicia Louis M.D., Parish Ricks M.D., and Nj Weinberg M.D., Ph.D. agree with the final diagnosis. Microscopic Description and Comment: H&E stained sections of the subcarinal lymph node show minute fragments with apparent effacement of lizzie architecture by diffuse proliferation of small to medium sized admixed with larger lymphoid cells, admixed scattered plasma cells and histiocytes, with prominent crush artifact. Immunohistochemistry with appropriate controls was performed on tissue sections for further evaluation (CD3, CD20, CD21, and CD43). ??In situ hybridization studies with appropriate controls for Nadine-De La Cruz virus (JAKOB probe) and the kappa and lambda light chains was also performed. Immunostains for CD3 and CD20 reveal that lymphoid infiltrate is a mixture of [id number] B cells and CD3-positive T cells, with B cell predominance CD21 highlights somewhat expanded/disrupted follicular dendritic cell meshworks. ??CD43 is positive in numerous cells. ??In situ hybridization for JAKOB probe highlights a few scattered positive cells. ??In situ hybridization for kappa and lambda light chains shows predominance of kappa light chains (kappa to lambda ratio ~ 8-10 to 1) ?Chiki Ramires M.D. ?History: The patient is a 22-year-old man who presents with a history of a liver transplant now with lung lesions and adenopathy. ??Operative procedure: Core biopsy of subcarinal (level 7 )lymph node. Specimen(s) Received: A: Lymph node, level 7 subcarinal Gross Description: The specimen is received in a single formalin filled container, labeled with the patient's name. A. The specimen is received labeled with core biopsy of 7LN and consists of 0.3 x 0.3 x 0.1 cm aggregate of minute preston-brown fragments of soft tissue. ??Labeled A1. ??Jar 0. lg/03/12/2017 09:20 ?Azucena Amaya MS, PA (ASCP) ? By this signature, I attest that the above diagnosis is based upon my personal examination of the slides(and/or other material). ?? Surgical Pathology report is available electronically in Clinical Desktop. The performance characteristics of some immunohistochemical stains, fluorescence in-situ hybridization tests and immunophenotyping by flow cytometry cited in this report (if any) were determined by the Surgical Pathology Department at [facility] as part of an ongoing manager quality program and in compliance with federally [...] determined by the Surgical Pathology Department of [facility]. ??It has not been cleared or approved by the U. S. Food and Drug Administration. us Fredi Nur MD LAB PATHOLOGY ORDERABLES F inal Result [facility] [address] [place] [address], [facility] * Cytology (03/11/2017 10:21 AM CDT) 03/11/2017 10:2 1 AM CDT 03/11/2017 5:10 PM CDT [facility] SYSTEM - 03/15/2017 3:36 PM CDT [facility] Yulisa Garcia Laboratory [place] [address] CYTOPATHOLOGY REPORT FINAL Patient Name: ADI NICHOLS Address: [address] [place] [address] Service: Internal Medicine ??[place], [place] ??[address] Location: [facility] Taken: 03/11/2017 Gender: ??M Received: 03/11/2017 : 1995 (Age: 22) Hospital #: [id number] Accessioned: 03/12/2017 ?? Patient Type: [facility] Reported: 03/15/2017 Physician(s): ??Fredi Nur M.D. ? FINAL DIAGNOSIS A. ??Lung, right middle lobe, bronchoalveolar lavage: ? - Negative for malignancy - Keratinizing squamous cells and bacteria present, see description - Negative cytopathic effect -See comment ? Comments The Pap stained ThinPrep slide is adequate, with abundant alveolar macrophages and scattered bronchial epithelial cells. ??The population of maturing, keratinizing squamous cells is noted, but no overt features of malignancy are appreciated. ??Scattered bacterial aggregates are present in the background. ??In addition there is a single elongated structure, associated with bacteria. ??A fungal forms cannot be excluded. ??Given the association with bacteria, oropharyngeal contamination is favored. ??We note the patient's surgical history and the imaging characteristics of his pulmonary nodules. ??Keratinizing squamous cells may be seen lining cavitary lesions or pulmonary abscesses and as part of tissue reactions to infectious or inflammatory processes. Correlation with concurrent microbiology studies is recommended. lmw/03/15/2017 10:19 By this signature, I attest that the above diagnosis is based upon my personal examination of the slides(and/or other material indicated in the diagnosis). ?? Precious Soliz M.D. Kael Monroy, CT(ASCP), CFIAC Report Electronically Reviewed and Signed Out By ??Precious Soliz M.D. 03/15/2017 15:36:50 Gross Description A. ??Lung, right middle lobe, bronchoalveolar lavage: ??10 ml cloudy fluid - 1 Pap stained ThinPrep. (ai) Clinical Diagnosis and History The patient is a 22 year old man status post liver transplant for autoimmune hepatitis in 1998; he has been steroid dependent for idiopathic thrombocytopenic purpura since 2013. ??He presents now with multiple lung lesions and mediastinal adenopathy. ?By this signature, I attest that the above diagnosis is based upon my personal examination of the slides(and/or other material). ? Torrey Payne MD This Cytology report is available electronically in Clinical Desktop. The performance characteristics of some immunohistochemical stains, in-situ hybridization and fluorescence in-situ hybridization tests and immunophenotyping by flow cytometry cited in this report (if any) were determined by the Surgical Pathology Department at [facility] as part of an ongoing manager quality program and in compliance with federally [...] determined by the Surgical Pathology Department of [facility]. ??It has not been cleared or approved by the U. S. Food and Drug Administration. us Fredi Nur MD LAB CYTOLOGY ORDERABLES nal Result [facility] [address] [place], [place] [address] documented in this encounter Visit Diagnoses Not on filedocumented in this encounter Care Teams Background Check Coordinator Relationship Specialty Start Date End Date Unknown, Notinfile PCP - General 03/11/17 03/15/17 documented as of this encounter
--- OUTSIDE RECORDS SUMMARY | 2024-10-28 06:29 | XMS_ITS | Encounter Summary ---
Author Organization [facility] Facility Care Team Providers Care Signal Circuit Designer Name Role Phone Unavailable Primary Care Provider Unavailabl e Encounter Details Date Type Department Care Team (Latest Contact Info) Description 11/01/2015 - 04/03/2016 11:04 PM CDT Hospital Encounter [facility] Immune thrombocytopenic purpura (CMS/HCC); Congenital agranulocytosis (CMS/HCC) Social History Tobacco Use Types Packs/Day Years Used Date Smoking Tobacco: Never Assessed Sex and Gender Information Value Date Recorded Sex Assigned at Not on file Legal Sex Male 6:28 AM [employer]SEM[employer] Gender Identity Not on file Sexual [...] Associated Diagnosis Comments DISCHARGE LABORATORY CUMULATIVE REPORT 10/31/2016 BLOOD IMMUNE DEFICIENCY Routine 12/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 Historical Provider LAB BLOOD ORDERABLES [place] l Result * (ABNORMAL) Blood immune deficiency (12/19/2015 10:33 AM [employer] ASSEMBLER) CD4 % 29 27 - 58 % HISTORICAL RESULTS Comment:{CD3+CD4-CD8- = 4%} CD4 cells 747 393 - 1607 cells/mcl HISTORICAL RESULTS CD8 % 43(H) 14 - 42 % HISTORICAL RESULTS CD8 cells, abs 1124(H) 211 - 977 cells/mcl HISTORICAL RESULTS CD4/CD8 ratio 0.7(L) 0.8 - 3.8 HISTOR ICAL RESULTS Blood specimen (specimen) 12/19/2015 10:33 AM [employer] ASSEMBLER Result [facility] Regine Garcia MD LAB BLOOD ORDERABLES Final Result HISTORICAL RESULTS * (ABNORMAL) Blood cell count [CBC] panel, 7 CAM (12/19/2015 10:33 AM [employer] ASSEMBLER) WBC 6.3 3.8 - 9.8 K/cumm HISTORICAL RESULTS RBC 4.52 4.50 - 5.70 M/cumm HISTORICAL RESULTS Hgb 14.4 13.8 - 17.2 g/dl HISTORICAL RESULTS Hct 43.7 40.7 - 50.3 % HISTORICAL RESULTS MCV 96.7 80.0 - 97.6 fl HISTORICAL RESULTS MCH 31.8 26.7 - 33.7 pg HISTORICAL RESULTS MCHC 32.9 32.7 - 35.5 g/dl HISTORICAL RESULTS Rdw 13.5 11.8 - 14.6 % HISTORICAL RESULTS Platelets 324 140 - 440 K/cumm HISTORICAL RESULTS MPV 7.6 6.8 - 10.4 fl HISTORICAL RESULTS Neutrophils 29.7(L) 38.7 - 74.5 % HISTORICAL RESULTS Lymphocytes 40.4 20.0 - 54.3 % HISTORICAL RESULTS Monos 25.7(H) 4.3 - 13.5 % HISTORICAL RESULTS Comment:{Result consistent w ith previously reported values.} Eosinophils 3.9 0.0 - 6.0 % HISTORICAL RESULTS Basophils 0.3 0.0 - 3.0 % HISTORICAL RESULTS Neutrophils, abs 1.9 1.8 - 6.6 K/cumm HISTORICAL RESULTS Lymphocytes, abs 2.5 1.2 - 3.3 K/cumm HISTORICAL RESULTS Monocytes, absolute 1.6(H) 0.2 - 1.2 K/cumm HISTORICAL RESULTS Eosinophils, abs 0.2 0.0 - 0.5 K/cumm HISTORICAL RESULTS Basophils, abs 0.0 0.0 - 0.2 K/cumm HISTORICAL RESULTS Blood specimen (specimen) 12/19/2015 10:33 AM [employer] ASSEM[employer]ER Regine Garcia MD LAB BLOOD ORDERABLES Final Result HISTORICAL RESULTS documented in this encounter Visit Diagnoses Diagnosis Immune thrombocytopenic purpura (HCC) Immune thrombocytopenic purpura Congenital agranulocytosis (HCC) documented in this encounter
--- OUTSIDE RECORDS SUMMARY | 2024-10-28 06:30 | XMS_ITS ---
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 Marked as Active Follow-up on 03/03/1999 Liver CoordinatorAmber Montesinos RN Fax: N/A Email: N/A Transplanted Elsewhere: [facility] ([place], [place]) - [facility] Coordinator: Phone: Fax: Infection History Noted Survival Infection Treatment Organism Resolved 02/18/2024 22 years 11 months Pneumonia of left lung due to infectious organism, unspecified part of lung 10/03/2023 22 years 7 months Pneumonia of r ight lung due to infectious organism, unspecified part of lung 10/13/2023 08/27/2023 22 years 5 months Rhinovirus 12/21/2019 18 years 9 months 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
--- OUTSIDE RECORDS SUMMARY | 2024-10-28 06:30 | XMS_ITS | Encounter Summary ---
Author Organization [facility] Care Team Providers Care Employment Specialist/Program Manager Name Role Phone Unavailable Primary Care Provider Unavailabl e Encounter Details Date Type Department Care Team (Latest Contact Info) Description 05/19/2014 3:56 AM CDT - 05/22/2014 12:26 PM CDT Hospital Encounter [facility] Immune thrombocytopenic purpura (HCC); Liver replaced by transplant (HCC); Spontaneous ecchymoses; Enlarged lymph nodes; Need for prophylactic immunotherapy; Other acquired absence of organ Social History Tobacco Use Types Packs/Day Years Used Date Smoking Tobacco: Never Assessed Sex and Gender Information Value Date Recorded Sex Assigned at Not on file 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 Gender Identity Not on file Sexual Orientation Straight 08/22/2021 9: 23 AM CDT documented as of this encounter Last Filed Vital Signs Vital Sign Reading Time Taken Comments Blood Pressure 119/74 05/22/2014 4:03 AM CDT Pulse 70 05/22/2014 4:03 AM CDT Temperature - - Respiratory Rate - - Oxygen Saturation 99% 05/22/2014 4:03 AM CDT Inhaled Oxygen Concentration - - Weight 54.5 kg (120 lb 1.4 oz) 05/22/2014 7:00 A M CDT Height 170.2 cm (5' 7 ) 05/19/2014 4:16 AM CDT Body Mass Index 18.81 05/19/2014 4:16 AM CDT documented in this encounter Medications at Time of Discharge predniSONE (DELTASONE) 20 mg tablet Take 10 mg by mouth. 08/08/2013 09/28/2018 documented as of this encounter H&P Notes * Provider, MD Dl - 05/19/2014 12:00 AM CDT Patient: Adi Nichols Reg No: [id number] [facility] #: [id number] Admit Dt.: 05/19/2014 : 1995 Room No: 65614 Attending: Imani Weinberg M.D. Dictating: Ileana Wilkins M.D. ADMISSION HISTORY PHYSICAL CHIEF COMPLAINT: Rash. 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 Patient states he received IVIg last and it is not lasting as long as it is supposed to. The patient has noticed increasing petechial-type rash on his lower extremities, extending all the way up to his thighs. Denies any headache, nausea, vomiting, diarrhea, bleeding, fever, or chills. The patient does note that he has some enlarged lymph nodes on the right side of his neck. The patient has a history of fulminant hepatitis in 1998 at the age of [age]. He underwent cadaveric liver transplant at that time; however, developed malfunction of the hepatic artery anastomosis and underwent a second transplantation the day after the first with the same donor. The patient states that after that he did well until around 13 or 14, and at that time developed enlarged lymph nodes, along with leukopenia and thrombocytopenia. He saw a beam saw operator at that time, and was told it could be due to prolonged immunosuppression. This is the first time the patient received IVIg, but after that, he received it approximately every six weeks. Later it was found that he had a positive EBV in his blood and he was given rituximab and the patient believes he only received that one time. He did reportedly undergo lymphadenopathy and had a biopsy of a lymph node on the left side of his neck in early 2011. He was told that this biopsy was negative and there was possible granulomatous inflammation, but no malignancy. Lymphadenopathy resolved spontaneously. Notably, he was seen recently by infectious disease, and at that time was not noted to have any lymphadenopathy and no other symptoms. He is followed by the liver clinic by Dr. Lemus and hematology by Dr. Garcia. In the emergency department, the patient was found to have a platelet count of 5, so he was admitted for further workup and likely IVIg. PAST MEDICAL/SURGICAL HISTORY: 1. Fulminant hepatitis, status post cadaveric liver transplant in 1998. 2. Idiopathic thrombocytopenic purpura initially diagnosed in 2011. 3. Lymphadenopathy for the past few years with negative biopsy and one dose of rituximab. MEDICATIONS: Tacrolimus 1 mg in the morning and 0.5 mg at night. ALLERGIES: The patient has no known allergies. FAMILY HISTORY: Family medical history is significant for a sister with type 1 diabetes and a mother with colorectal cancer, diagnosed at age 30. SOCIAL HISTORY: He lives with his family on a farm in [place], [place]. He is single. Uses alcohol rarely, two to three beers per week, and denies any tobacco or illicit drug use. 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 REVIEW OF SYSTEMS: Review of systems is negative, except as per history of present illness. PHYSICAL EXAMINATION: Vital Signs: Temperature 36.3 degrees, heart rate 73, respiratory rate 18, blood pressure 121/75, saturating well on room air. Constitutional: The patient was sitting in bed, in no acute distress. HEENT: Pupils are equal, round and reactive to light and accommodation. Extraocular motions intact. Right-sided posterior cervical lymphadenopathy along the right side of his neck. I did not appreciate any lymphadenopathy on the left and I did not appreciate any supraclavicular lymphadenopathy. Chest: Cardiovascular - regular rate and rhythm. No murmurs, rubs, or gallops appreciated. Lungs: Were clear to auscultation bilaterally. Abdomen: Soft, nontender, nondistended. Bowel sounds positive. Extremities: No edema. Skin: The patient has a fine petechial rash extending from his thighs down to his toes. No purpura noted. LABORATORY AND X-RAY DATA: CBC - white blood cell count 6.9, hemoglobin 14.5, platelet count of 5. Basic metabolic profile - sodium 141, potassium 4.3, chloride 105, carbon dioxide 27, BUN 13, creatinine 0.72, and glucose 93. Hepatic function panel - total protein 7.6, albumin 4.2, bilirubin 0.4, direct bilirubin 0.1, alkaline phosphatase 167, AST 65, and ALT 86. ASSESSMENT AND PLAN: In summary, this is a 19-year-old male with a history of fulminant hepatic failure, status post transplant, and idiopathic thrombocytopenic purpura who presents with a low platelet count and an increased petechial rash. 1) Idiopathic thrombocytopenic purpura - the patient follows with Dr. Garcia in hematology. We will consult hematology in the morning for further treatment and likely IVIg. At this time, the patient is hemodynamically stable and has no evidence of bleeding. We will continue to monitor. 2) Lymphadenopathy - the patient has this history of lymphadenopathy for the past few years. He was recently evaluated in the infectious disease clinic, but at that time there were no palpable lymph nodes. We will check an EBV and CMV and consider consulting infectious disease while the patient is here for further evaluation of the enlarged lymph nodes. Currently he has no symptoms of fevers, chills, or other signs of systemic infection. 3) Status post liver transplant - we will continue the patient on his immunosuppressive medication which is tacrolimus 1 mg in the morning and 0.5 mg at night. We will obtain a tacrolimus level. The patient has mildly elevated transaminases. It looks like these are consistent with laboratories he had several weeks ago. 4) Fluids, electrolytes and nutrition - the patient will be placed on a regular diet. 5) Prophylaxis - given the patient's low platelet count, h e will not be started on subcutaneous heparin. The patient is ambulating, so he will not be given SCDs. 6) The patient is a full code. Ileana Wilkins M.D. Electronically Signed By Imani Weinberg M.D. 06/17/2014 07:03 P Stephon Cox/jennifer #[id number] Editing MT: TD: 05/19/2014 09:00:00 cc: Stephon Howard M.D. documented in this encounter Consult Notes * Provider, MD Dl - 05/19/2014 12:00 AM CDT Patient: Adi Nichols Reg No: [id number] [facility] #: [id number] Admit Dt.: 05/19/2014 : 1995 Room No: [id number] Attending: Medicine Medicine Consulting: Regine Garcia M.D. Dictating: Yassine Wellington M.D. Service Dt: 05/19/2014 CONSULTATION REPORT PHYSICIAN REQUESTING CONSULTATION: Dr. Imani Weinberg REASON FOR CONSULTATION: Thrombocytopenia CHIEF COMPLAINT: Rash Please see this dictated consult note for all billing purposes. 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 The patient has been seen by a beam saw operator for autoimmune thrombocytopenia and neutropenia for years now. He was previously on IVIG and steroids and then underwent splenectomy in 12/2012. His platelet count originally responded to the splenectomy (per records) but then decreased close to 20,000 in 07/2013. At this time he received IVIG again and his platelet count improved but has intermittently remained low since then. He follows in the Hematology Clinic with Dr. Garcia and has been getting intermittent IVIG infusions every couple of weeks. He has had no significant bleeding recently and recently saw Dr. Garcia in clinic about a week and a half ago. His last IVIG infusion was on 05/10/2014. His platelet count on that day was 5,000 and today upon presentation his platelet count was also 5,000. He reports no fevers, chills, or night sweats. He has noted a bump behind his right ear that is new. He has noted intermittent lymphadenopathy for months now. REVIEW OF SYSTEMS: All twelve review of systems were reviewed and negative unless otherwise specified. PAST MEDICAL HISTORY: 1. Fulminant hepatitis status-post liver transplant at age 4. 2. EBV reactivation. 3. CMV viremia. 4. Autoimmune thrombocytopenia. 5. Autoimmune neutropenia. 6. Hypogammaglobulinemia. 7. Lymphadenopathy, status-post biopsy showing granulomatous inflammation. MEDICATIONS: Tacrolimus 0.5 mg twice a day. ALLERGIES: No known allergies. FAMILY HISTORY: Significant for a sister with type 1 diabetes and mother with colorectal cancer diagnosed at age 30. SOCIAL HISTORY: The patient lives with his family in [place], [place]. He drinks alcohol rarely. He denies any tobacco or illicit drug abuse. PHYSICAL EXAMINATION: Vital Signs: Blood pressure 97/66 mmHg, heart rate 88, respiratory rate 18, temperature 96.8. Constitutional: No acute distress. HEENT: No oral mucositis. Cardiovascular: Regular rate and rhythm. Lungs: Clear to auscultation bilaterally. Abdomen: Non-tender, non-distended. Extremities: No lower extremity edema. Neurologic: Alert and oriented x 3. Skin: Petechial rash noted on lower extremities. Nodes: Preauricular lymph node on left noted as well as right side. LABORATORY AND X-RAY DATA: 1. Complete blood count 05/19/2014: White count 6.9, ANC of 1,500, hemoglobin 14.5, platelet count 5,000 and was 5,000 on 05/10/2014 and was 53,000 on 05/02/2014. 2. Basic metabolic panel: Unremarkable. Alkaline phosphatase 167, AST 65, ALT 86. IMPRESSION: This is a 19-year-old male with a history of liver transplant, autoimmune thrombocytopenia who presents with petechial rash. RECOMMENDATIONS: 1. Please administer IVIG 1 g/kg today on 05/19/2014 and tomorrow on 05/20/2014. 2. Please hold off on administering any steroid for now as the patient does have history of EBV and CMV. 3. Please have the patient evaluated for biopsy of right cervical lymph node 4. Hematology will follow along and trend platelet counts and will evaluate for therapy going forward. This patient was discussed with Dr. Regine Garcia. Reviewed by Yassine Wellington M.D. 06/06/2014 10:00 A Yassine Wellington M.D. Electronically Signed By Regine Garcia M.D. 06/06/2014 01:08 P Regine Garcia M.D. [facility] #[id number] Editing MT: TD: 05/20/2014 08:17:00 cc: Stephon Nettles M.D. Medicine Medicine documented in this encounter Plan of Treatment Scheduled Procedures Name Priority Associated Diagnoses Date/Ti al COLONOSCOPY Encounter for screening for colorectal cancer in high risk patient Family history of rectal cancer documented as of this encounter Procedures Procedure Name Priority Date/Time Associated Diagnosis Comments TISSUE LYMPHOCYTE POPULATION, LEUKEMIA/LYMPHOMA Routine 05/22/2014 11:00 AM CDT BIOPSY LYMPH NODE SUPERFICIAL Routine 05/22/2014 8:53 AM CDT US GUIDED NEEDLE PLACEMENT Routine 05/22/2014 8:53 AM CDT MYCOBACTERIOLOGY (AFB) CULTURE, CDR Routine 05/22/2014 8:45 AM CDT FUNGAL CULTURE, CDR Routine 05/22/2014 8 :45 AM CDT BARTONELLA PCR, CDR Routine 05/22/2014 8 :45 AM CDT AEROBIC/ANAEROBIC CULTURE AND GRAM STAIN, CDR Routine 05/22/2014 8:45 AM CDT ALL MICROBIOLOGY REPORT SECTION Routine 05/22/2014 12:00 AM CDT ALL MICROBIOLOGY REPORT SECTION Routine 05/22/2014 12:00 AM CDT ALL MICROBIOLOGY REPORT SECTION Routine 05/22/2014 12:00 AM CDT ALL MICROBIOLOGY REPORT SECTION Routine 05/22/2014 12:00 AM CDT DISCHARGE LABORATORY CUMULATIVE REPORT Routine 05/22/2014 12:00 AM CDT SURGICAL PATHOLOGY 05/22/2014 BLOOD LYMPHOCYTE, LEUKEMIA/LYMPHOMA Routine 05/21/2014 11:20 PM CDT SERUM BARTONELLA AB Routine 05/21/2014 1 1:07 PM CDT PLASMA PROTHROMBIN TIME (PT) Routine 05/21/2014 11:07 PM CDT PLASMA PARTIAL THROMBOPLASTIN TIME (PTT) Routine 05/21/2014 11:07 PM CDT PLASMA BASIC METABOLIC PANEL Routine 05/21/2014 11:07 PM CDT BLOOD CELL COUNT (CBC) Routine 4 11:[address] SOFT TISSUE NECK W CONTRAST Routine 05/21/2014 1:42 PM CDT SURGICAL PATHOLOGY 05/21/2014 PLASMA COMPREHENSIVE METABOLIC PANEL Routine 05/20/2014 10:37 PM CDT BLOOD CELL COUNT (CBC) Routine 4 10:37 PM CDT BLOOD CELL MORPHOLOGIC EXAM Routine 05/20/2014 10:37 PM CDT SERUM URIC ACID Routine 05/20/2014 12:32 AM CDT SERUM HUMAN IMMUNODEFICIENCY VIRUS (HIV) 1, 2 AB Routine 05/20/2014 12:32 AM CDT PLASMA PROTHROMBIN TIME (PT) Routine 05/20/2014 12:32 AM CDT PLASMA PARTIAL THROMBOPLASTIN TIME (PTT) Routine 05/20/2014 12:32 AM CDT PLASMA BASIC METABOLIC PANEL Routine 05/20/2014 12:32 AM CDT BLOOD CELL COUNT (CBC) Routine 4 12:32 AM CDT BLOOD CELL MORPHOLOGIC EXAM Routine 05/20/2014 12:32 AM CDT NADINE-BORREGO VIRUS (EBV) PCR, QUANTITATIVE, CDR Routine 05/19/2014 9:20 AM CDT CYTOMEGALOVIRUS (CMV) PCR, CDR Routine 05/19/2014 9:20 AM CDT CHEST RADIOGRAPHY, FRONTAL (AP), LATERAL Routine 05/19/2014 8:44 AM CDT SERUM NADINE-BORREGO VIRUS AB, IGM, VIRAL CAPSID AG Routine 05/19/2014 4:20 AM CDT SERUM URIC ACID Routine 05/19/2014 1:10 AM CDT SERUM LACTATE DEHYDROGENASE (LDH) Routine 05/19/2014 1:10 AM CDT PLASMA HEPATIC FUNCTION PANEL Routine 05/19/2014 1:10 AM CDT PLASMA BASIC METABOLIC PANEL Routine 05/19/2014 1:10 AM CDT EXTRA SLIDE PREPARATION Routine 05/19/20 14 1:10 AM CDT BLOOD CELL COUNT (CBC) Routine 4 1:10 AM CDT BLOOD ABO, RH, INDIRECT AB SCREEN Routine 05/19/2014 1:10 AM CDT BLOOD CELL MORPHOLOGIC EXAM Routine 05/19/2014 1:10 AM CDT ALL MICROBIOLOGY REPORT SECTION Routine 05/19/2014 12:00 AM CDT ALL MICROBIOLOGY REPORT SECTION Routine 05/19/2014 12:00 AM CDT documented in this encounter Results * Tissue lymphocyte population, leukemia/lymphoma (05/22/2014 11:00 AM CDT) Frazier stain, tissue Test Completed HISTORICAL RESULTS Leukemia/ lymphoma panel result, tissue See separate Surgical Pathology report HISTORICAL RESULTS Tissue 05/22/2014 11:0 0 AM CDT Imani Weinberg MD LAB BLOOD ORDERABLES Final Res ult HISTORICAL RESULTS * Biopsy Lymph Node (05/22/2014 8:53 AM CDT) Anatomical Region Laterality Modality Body N/A X-Ray Angiograph y 05/22/2014 8:53 AM CDT Narrative 05/22/2014 9:11 AM CDT DELGADO MATHEWS M.D. F FINAL REPORT ACC# ??Date Time ??Exam [id number] May 22, 2014 08:53:00 [id number] Bx Lymph Nd Sprficial [id number] May 22, 2014 08:53:00 [id number] ([facility] US Needle Guide EXAMINATION: ?Right cervical lymph node biopsy under ultrasound guidance HISTORY: 19-year-old man with liver transplantation as a child. The patient has extensive lymphadenopathy in the right neck. Biopsy is requested for surgical pathology and microbiology. ATTENDING PRESENCE: Dr. Delgado Mathews, the attending radiologist, was present from the beginning to the end of the procedure. Drs. Maldonado and Thang also participated in this examination. SEDATION: Moderate sedation was administered under the attending physician's direction and continuous monitoring by a trained nurse specialist who was independent from those actually performing the procedure. ??Total monitored sedation time was 35 minutes. ??During the course of the procedure, the patient received Fentanyl 150 mcg and Versed 2 mg IV. ?? TECHNIQUE: ??The risks, benefits and alternatives were discussed and informed consent was obtained. ??Prior to beginning the procedure, [facility] Protocol was performed to confirm the patients identity and the planned procedure. ? Sterile barriers used during the procedure included cap, mask, hand hygiene, sterile gloves, and sterile drape. Chloraprep was used for cutaneous antisepsis. The patient was placed left lateral decubitus on the superior table. ??The biopsy site was localized with ultrasound guidance. ??5 mL of a 1:1 mixture of 0.25% bupivacaine and 1% lidocaine was injected for subcutaneous anesthesia. ??A 14-gauge achieve biopsy needle was inserted into the right neck lymph node conglomerate under real-time ultrasound guidance. Ten 1-2 cm soft tissue cores were obtained from the lymph node conglomerate under real-time ultrasound guidance. Three specimens were sent to surgical pathology in formalin, 3 specimens were sent to flow cytometry in saline and 4 specimens were sent to microbiology in saline (routine culture, AFB, fungal cultures and Bartonella PCR). ??The needle was removed and the skin was cleansed with hydrogen peroxide. ??Dermabond was used for skin closure. ?? ESTIMATED BLOOD LOSS: Minimal CONDITION: Stable condition DISCHARGED TO: Inpatient care division FINDINGS: There is a conglomerate of lymph nodes in the right neck. Subsequent ultrasound images demonstrate the biopsy needle within the lymph node conglomerate. IMPRESSION: ?? 1. Right cervical lymph node biopsy under real-time ultrasound guidance. ?? The soft tissue core specimens were sent to surgical pathology, flow cytometry and microbiology. Requested By: THEODORE AUSTIN ??M.D. Dictated By: ?? DELGADO MATHEWS M.D. F ??on May 22 2014 ??9:11A This document has been electronically signed by: Stephon CORTEZ on May 22 2014 ??9:11A Procedure Note Provider, MD Dl - 02/28/2017 Stephon CORTZE FINAL REPORT ACC# Date Time Exam [id number] May 22, 2014 08:53:00 [id number] Bx Lymph Nd Sprficial [id number] May 22, 2014 08:53:00 [id number] ([facility] US Needle Guide EXAMINATION: Right cervical lymph node biopsy under ultrasoundguidance HISTORY: 19-year-old man with liver transplantation as a child. The patient has extensive lymphadenopathy in the right neck. Biopsy is requested for surgical pathology and microbiology. ATTENDING PRESENCE: Dr. Delgado Mathews, the attending radiologist, was present from the beginning to the end of the procedure. Drs. Maldonado and Thang also participated in this examination. SEDATION: Moderate sedation was administered under the attending physician's direction and continuous monitoring by a trained nurse specialist who was independent from those actually performing the procedure. Total monitored sedation time was 35 minutes. During the course of the procedure, the patient received Fentanyl 150 mcg and Versed 2 mg IV. TECHNIQUE: The risks, benefits and alternatives were discussed and informed consent was obtained. Prior to beginning the procedure, [facility] Protocol was performed to confirm the patients identity and the planned procedure. Sterile barriers used during the procedure included cap, mask, hand hygiene, sterile gloves, and sterile drape. Chloraprep was used for cutaneous antisepsis. The patient was placed left lateral decubitus on the superior table. The biopsy site was localized with ultrasound guidance. 5 mL of a 1:1 mixture of 0.25% bupivacaine and 1% lidocaine was injected for subcutaneous anesthesia. A 14-gauge achieve biopsy needle was inserted into the right neck lymph node conglomerate under real-time ultrasound guidance. Ten 1-2 cm soft tissue cores were obtained from the lymph node conglomerate under real-time ultrasound guidance. Three specimens were sent to surgical pathology in formalin, 3 specimens were sent to flow cytometry in saline and 4 specimens were sent to microbiology in saline (routine culture, AFB, fungal cultures and Bartonella PCR). The needle was removed and the skin was cleansed with hydrogen peroxide. Dermabond was used for skin closure. ESTIMATED BLOOD LOSS: Minimal CONDITION: Stable condition DISCHARGED TO: Inpatient care division FINDINGS: There is a conglomerate of lymph nodes in the right neck. Subsequent ultrasound images demonstrate the biopsy needle within the lymph node conglomerate. IMPRESSION: 1. Right cervical lymph node biopsy under real-time ultrasound guidance. The soft tissue core specimens were sent to surgical pathology, flow cytometry and microbiology. Requested By: THEODORE AUSTIN M.D. Dictated By: Stephon CORTEZ on May 22 2014 9:11A This document has been electronically signed by: DELGADO MATHEWS M.D. F on May 22 2014 9:11A us Historical Provider MD SZYMANSKI IR PROCEDURES Final R esult * US Guided Needle Placement (05/22/2014 8:53 AM CDT) Anatomical Region Laterality Modality Entire body N/A Ultrasound 05/22/2014 8:53 AM CDT Narrative 05/22/2014 9:11 AM CDT DELGADO MATHEWS M.D. F FINAL REPORT ACC# ??Date Time ??Exam [id number] May 22, 2014 08:53:00 [id number] Bx Lymph Nd Sprficial [id number] May 22, 2014 08:53:00 [id number] ([facility]) US Needle Guide EXAMINATION: ?Right cervical lymph node biopsy under ultrasound guidance HISTORY: 19-year-old man with liver transplantation as a child. The patient has extensive lymphadenopathy in the right neck. Biopsy is requested for surgical pathology and microbiology. ATTENDING PRESENCE: Dr. Delgado Mathews, the attending radiologist, was present from the beginning to the end of the procedure. Drs. Maldonado and Thang also participated in this examination. SEDATION: Moderate sedation was administered under the attending physician's direction and continuous monitoring by a trained nurse specialist who was independent from those actually performing the procedure. ??Total monitored sedation time was 35 minutes. ??During the course of the procedure, the patient received Fentanyl 150 mcg and Versed 2 mg IV. ?? TECHNIQUE: ??The risks, benefits and alternatives were discussed and informed consent was obtained. ??Prior to beginning the procedure, [facility] Protocol was performed to confirm the patients identity and the planned procedure. ? Sterile barriers used during the procedure included cap, mask, hand hygiene, sterile gloves, and sterile drape. Chloraprep was used for cutaneous antisepsis. The patient was placed left lateral decubitus on the superior table. ??The biopsy site was localized with ultrasound guidance. ??5 mL of a 1:1 mixture of 0.25% bupivacaine and 1% lidocaine was injected for subcutaneous anesthesia. ??A 14-gauge achieve biopsy needle was inserted into the right neck lymph node conglomerate under real-time ultrasound guidance. Ten 1-2 cm soft tissue cores were obtained from the lymph node conglomerate under real-time ultrasound guidance. Three specimens were sent to surgical pathology in formalin, 3 specimens were sent to flow cytometry in saline and 4 specimens were sent to microbiology in saline (routine culture, AFB, fungal cultures and Bartonella PCR). ??The needle was removed and the skin was cleansed with hydrogen peroxide. ??Dermabond was used for skin closure. ?? ESTIMATED BLOOD LOSS: Minimal CONDITION: Stable condition DISCHARGED TO: Inpatient care division FINDINGS: There is a conglomerate of lymph nodes in the right neck. Subsequent ultrasound images demonstrate the biopsy needle within the lymph node conglomerate. IMPRESSION: ?? 1. Right cervical lymph node biopsy under real-time ultrasound guidance. ?? The soft tissue core specimens were sent to surgical pathology, flow cytometry and microbiology. Requested By: THEODORE AUSTIN ??M.DMarco Dictated By: ?? Stephon CORTEZ ??on May 22 2014 ??9:11A This document has been electronically signed by: Stephon CORTEZ on May 22 2014 ??9:11A Procedure Note Provider, MD Dl - 02/28/2017 Stephon CORTEZ FINAL REPORT ACC# Date Time Exam [id number] May 22, 2014 08:53:00 [id number] Bx Lymph Nd Sprficial [id number] May 22, 2014 08:53:00 [id number] (MSK) US Needle Guide EXAMINATION: Right cervical lymph node biopsy under ultrasoundguidance HISTORY: 19-year-old man with liver transplantation as a child. The patient has extensive lymphadenopathy in the right neck. Biopsy is requested for surgical pathology and microbiology. ATTENDING PRESENCE: Dr. Delgado Mathews, the attending radiologist, was present from the beginning to the end of the procedure. Drs. Maldonado and Thang also participated in this examination. SEDATION: Moderate sedation was administered under the attending physician's direction and continuous monitoring by a trained nurse specialist who was independent from those actually performing the procedure. Total monitored sedation time was 35 minutes. During the course of the procedure, the patient received Fentanyl 150 mcg and Versed 2 mg IV. TECHNIQUE: The risks, benefits and alternatives were discussed and informed consent was obtained. Prior to beginning the procedure, [place] Protocol was performed to confirm the patients identity and the planned procedure. Sterile barriers used during the procedure included cap, mask, hand hygiene, sterile gloves, and sterile drape. Chloraprep was used for cutaneous antisepsis. The patient was placed left lateral decubitus on the superior table. The biopsy site was localized with ultrasound guidance. 5 mL of a 1:1 mixture of 0.25% bupivacaine and 1% lidocaine was injected for subcutaneous anesthesia. A 14-gauge achieve biopsy needle was inserted into the right neck lymph node conglomerate under real-time ultrasound guidance. Ten 1-2 cm soft tissue cores were obtained from the lymph node conglomerate under real-time ultrasound guidance. Three specimens were sent to surgical pathology in formalin, 3 specimens were sent to flow cytometry in saline and 4 specimens were sent to microbiology in saline (routine culture, AFB, fungal cultures and Bartonella PCR). The needle was removed and the skin was cleansed with hydrogen peroxide. Dermabond was used for skin closure. ESTIMATED BLOOD LOSS: Minimal CONDITION: Stable condition DISCHARGED TO: Inpatient care division FINDINGS: There is a conglomerate of lymph nodes in the right neck. Subsequent ultrasound images demonstrate the biopsy needle within the lymph node conglomerate. IMPRESSION: 1. Right cervical lymph node biopsy under real-time ultrasound guidance. The soft tissue core specimens were sent to surgical pathology, flow cytometry and microbiology. Requested By: THEODORE AUSTIN M.D. Dictated By: Stephon CORTEZ on May 22 2014 9:11A This document has been electronically signed by: Stephon CORTEZ on May 22 2014 9:11A us Historical Provider MD SZYMANSKI US PROCEDURES Final R esult * Bartonella PCR (05/22/2014 8:45 AM CDT) Tissue (Lymph node) 05/22/2014 8:45 AM CDT 05/22/2014 10:22 AM CDT Impressions HISTORICAL RESULTS - 05/24/2014 12:45 PM CDT The Bartonella PCR assay performed amplifies a segment of the heme-binding phage associated protein of Bartonella henselae. ??It does not amplify Bartonella species other than B. henselae. ??Bartonella henselae is the cause of cat scratch disease. ??Other species are rare causes of human disease. ??If there is clinical suspicion of other Bartonella species, contact the Microbiology Laboratory Medicine resident ([phone]) or call the Virology [employer] ([phone]). ??This test was developed and its performance characteristics determined by [facility]. ??It has not been cleared or approved by the U.S. Food and Drug Administration. Current interpretive data was last revised on 2010. Narrative HISTORICAL RESULTS - 05/24/2014 12:45 PM CDT Negative Historical Provider LAB MICROBIOLOGY - GENERA L ORDERABLES Final Result Performing Organization Address [facility] de Phone Number HISTORICAL RESULTS * Mycobacteriology (AFB) culture (05/22/2014 8:45 AM CDT) Biopsy (Lymph node) 05/22/2014 8:45 AM CDT 05/22/2014 8:52 AM CDT Narrative HISTORICAL RESULTS - 07/19/2014 12:06 PM CDT No growth of acid-fast bacilli Historical Provider MD LAB MICROBIOLOGY - GENERA L ORDERABLES Final Result Performing Organization Address [facility] de Phone Number HISTORICAL RESULTS * Fungal culture (05/22/2014 8:45 AM CDT) Biopsy (Lymph node) 05/22/2014 8:45 AM CDT 05/22/2014 8:52 AM CDT Narrative HISTORICAL RESULTS - 06/21/2014 7:58 AM CDT No growth of fungus Historical Provider LAB MICROBIOLOGY - GENERA L ORDERABLES Final Result Performing Organization Address [facility] de Phone Number HISTORICAL RESULTS * Aerobic/anaerobic culture and Gram stain (05/22/2014 8:45 AM CDT) Biopsy (Lymph node) 05/22/2014 8:45 AM CDT 05/22/2014 8:52 AM CDT Impressions HISTORICAL RESULTS - 05/27/2014 10:39 AM CDT Specimens submitted from normally sterile [...] revised on 2013. Narrative HISTORICAL RESULTS - 05/27/2014 10:39 AM CDT Few polymorphonuclear leukocytes seen. No organisms seen. No growth Historical Provider MD LAB MICROBIOLOGY - GENERA L ORDERABLES Final Result HISTORICAL RESULTS * Surgical pathology (05/22/2014) Narrative 05/22/2014 Ordered by an unspecified provider. us Historical Provider MD LAB PATHOLOGY ORDERABLES Final Result * Discharge Laboratory Cumulative Report (05/22/2014 12:00 AM CDT) 05/22/2014 Narrative HISTORICAL RESULTS - 07/19/2014 3:28 PM CDT ?[facility] ?Department of Laboratories ? [address] [facility] [place] ? [place] [address] Patient Name: ??ADI NICHOLS Med Rec Number: [id number] Fin Number: ?[id number] Date: ?1995 Sex/Age: ? Male 19 years Admit Date: ?05/19/2014 Discharge Date: 05/22/2014 Doctor: ?[facility] , [address] Facility: ?[facility] Location: ?OTHER Chart Printed: 07/19/2014 15:28 ?? * Abnormal ?? C Critical ?? f Footnote ?? ^ Corrected ?? L Low ?? H High ? i Interp Data ?? @ Reference Lab ?Chart Type:Cumulative ? SELECTED ELECTROLYTES ?Test: Sodium ? Plasma Potassium ??Chloride ? Reference: [135-145] ??[3.3-4.9] ? [97-110] ? Units: mmol/L ? mmol/L ?mmol/L 05/21/2014 ?? 23:07:00 ?? 136 ?3.9 ? 102 05/20/2014 ?? 22:37:00 ?? 138 ?4.0 ? 107 05/20/2014 ?? 00:32:30 ?? 140 ?3.9 ? 109 05/19/2014 ?? 01:10:00 ?? 141 ?4.3 ??f ?105 05/19/2014 01:10:00 ??Plasma Potassium: Hemolyzed; (++); potassium value may be falsely elevated by as much as 0.3 - 0.5 mmol/L. Suggest redraw and reanalysis. ?Test: Total CO2 ??Anion Gap ? Reference: [22-32] ?[0-16] ? Units: mmol/L ? mmol/L 05/21/2014 ?? 23:07:00 ?? 24 ? 10 05/20/2014 ?? 22:37:00 ?? 22 ? 9 05/20/2014 ?? 00:32:30 ?? 25 ? 6 05/19/2014 ?? 01:10:00 ?? 27 ? 9 ? STANDARD BLOOD CHEMISTRY ?Test: BUN ? Creatinine ?? Total Bilirubin ? Reference: [8-25] ??[0.70-1.30] ??[0.3-1.1] ? Units: mg/dL ?? mg/dL ?mg/dL 05/21/2014 ?? 23:07:00 ?? 13 ?0.89 05/20/2014 ?? 22:37:00 ?? 15 ?0.69 ??L ?0.3 05/20/2014 ?? 00:32:30 ?? 13 ?0.75 05/19/2014 ?? 01:10:00 ?? 13 ?0.72 ? 0.4 ? STANDARD BLOOD CHEMISTRY ?Test: Bilirubin, Direct ??Uric Acid ??Glucose ? Reference: [0.0-0.3] ?[3.0-8.0] ??[70-199] ? Units: mg/dL ?mg/dL ?mg/dL 05/21/2014 ?? 23:07:00 ? 95 05/20/2014 ?? 22:37:00 ? 129 05/20/2014 ?? 00:32:30 ? 105 05/20/2014 ?? 00:32:00 ?6.4 05/19/2014 ?? 01:10:00 ?? 0.1 ?7.2 ?93 ?Test: Total Calcium ??Plasma Total Protein ??Albumin ? Reference: [8.6-10.3] ? [6.5-8.5] ? [3.6- 5.0] ? Units: mg/dL ?g/dL ?g/dL 05/21/2014 ?? 23:07:00 ?? 9.3 05/20/2014 ?? 22:37:00 ?? 8.7 ?9.3 ??H ?3.6 05/20/2014 ?? 00:32:30 ?? 9.1 05/19/2014 ?? 01:10:00 ?? 9.3 ?7.6 ? 4.2 ?ENZYMES ?Test: Alkaline Phosphatase ??ALT ?AST ? Reference: [38-126] ?[7-53] ?? [11-47] ? Units: Units/L ? Units/L ??Units/L 05/20/2014 ?? 22:37:00 ?? 162 ??H ?84 ??H ?60 ??H 05/19/2014 ?? 01:10:00 ?? 167 ??H ?86 ??H ?65 ??H ?Test: Total LD ? Reference: [100-250] ? Units: Units/L 05/19/2014 ?? 01:10:00 ?? 297 ??Hf 05/19/2014 01:10:00 ??Total LD: Hemolyzed; result may be falsely elevated. ? COMPLETE BLOOD COUNT ?Test: WBC ?RBC ?Hgb ? Reference: [3.8-9.8] ??[4.50-5.70] ??[13.8-17.2] ? Units: K/cumm ? M/cumm ? g/dL 05/21/2014 ?? 23:07:00 ?? 8.9 ?4.48 ??L ?14.8 05/20/2014 ?? 22:37:00 ?? 7.5 ?4.20 ??L ?13.8 05/20/2014 ?? 00:32:30 ?? 5.8 ?4.55 ? 15.0 05/19/2014 ?? 01:10:17 ?? 6.9 ?4.37 ??L ?14.5 ?Test: Hct ?Platelet Ct ??MCV ? Reference: [40.7-50.3] ??[140-440] ?[80.0-97.6] ? Units: % ?K/cumm ? fL 05/21/2014 ?? 23:07:00 ?? 43.8 ? 143 ??f ? 97.8 ??H 05/20/2014 ?? 22:37:00 ?? 41.2 ? 50 ??Lf ? 98.1 ??H ? COMPLETE BLOOD COUNT ?Test: Hct ?Platelet Ct ??MCV ? Reference: [40.7-50.3] ??[140-440] ?[80.0-97.6] ? Units: % ?K/cumm ? fL 05/20/2014 ?? 00:32:30 ?? 43.9 ? 12 ??Cf ? 96.6 05/19/2014 ?? 01:10:17 ?? 42.6 ? 5 ??Cf ?97.4 05/21/2014 23:07:00 ??Platelet Ct: Verified 05/20/2014 22:37:00 ??Platelet Ct: verified 05/20/2014 00:32:30 ??Platelet Ct: Critical result called to Tesha MARTINEZ) on 05/20/2014 01:41:02 CDT by lsd. No clot detected in sample. 05/19/2014 01:10:17 ??Pl[address] Ct: Critical result called to Lina martinez) on 05/19/2014 02:22:47 CDT by bree. ?Test: MCH ?MCHC ? RDW ? Reference: [26.7-33.7] ??[32.7-35.5] ??[11.8-14.6] ? Units: pg ? g/dL ? % 05/21/2014 ?? 23:07:00 ?? 33.0 ? 33.8 ? 15.0 ??H 05/20/2014 ?? 22:37:00 ?? 32.7 ? 33.4 ? 15.2 ??H 05/20/2014 ?? 00:32:30 ?? 32.9 ? 34.1 ? 15.1 ??H 05/19/2014 ?? 01:10:17 ?? 33.2 ? 34.0 ? 15.1 ??H ?Test: MPV ? Reference: [6.8-10.4] ? Units: fL 05/21/2014 ?? 23:07:00 ?? 9.6 05/20/2014 ?? 22:37:00 ?? 10.3 05/20/2014 ?? 00:32:30 ?? 11.5 ??H 05/19/2014 ?? 01:10:17 ?? 8.2 ? AUTOMATED WHITE CELL DIFFERENTIAL ?Test: Neut Pct Auto ??Lymph Pct Auto ??[place] Pct Auto ? Reference: [38.7-74.5] ?[20.0-54.3] ? [4.3-13.5] ? Units: % ?% ? % 05/21/2014 ?? 23:07:00 ?? 37.4 ??L ?40.4 ?19.3 ??H 05/20/2014 ?? 22:37:00 ?? 29.7 ??L ?45.5 ?22.2 ??H 05/20/2014 ?? 00:32:30 ?? 24.0 ??L ?54.0 ?17.0 ??H 05/19/2014 ?? 01:10:17 ?? 22.0 ??L ?49.4 ?24.6 ??H ?Test: Eos Pct Auto ??Baso Pct Auto ??Neut Abs Auto ? Reference: [0.0-6.0] ? [0.0-3.0] ?[1.8-6.6] ? Units: % ? % ?K/cumm 05/21/2014 ?? 23:07:00 ?? 2.4 ? 0.5 ?3.3 05/20/2014 ?? 22:37:00 ?? 2.0 ? 0.6 ?2.2 05/20/2014 ?? 00:32:30 ?? 4.0 ? 1.0 ?1.4 ??L 05/19/2014 ?? 01:10:17 ?? 3.4 ? 0.6 ?1.5 ??L ? AUTOMATED WHITE CELL DIFFERENTIAL ?Test: Lymph Abs Auto ??[place] Abs Auto ??Eos Abs Auto ? Reference: [1.2-3.3] ? [0.2-1.2] ?[0.0-0.5] ? Units: K/cumm ?K/cumm ? K/cumm 05/21/2014 ?? 23:07:00 ?? 3.6 ??H ?1.7 ??H ? 0.2 05/20/2014 ?? 22:37:00 ?? 3.4 ??H ?1.7 ??H ? 0.2 05/20/2014 ?? 00:32:30 ?? 3.1 ? 1.0 ?0.2 05/19/2014 ?? 01:10:17 ?? 3.4 ??H ?1.7 ??H ? 0.2 ?Test: Baso Abs Auto ??Morph Screen ? Reference: [0.0-0.2] ? Units: K/cumm 05/21/2014 ?? 23:07:00 ?? 0.0 05/20/2014 ?? 22:37:00 ?? 0.0 ?See Below 05/20/2014 ?? 00:32:30 ?? 0.1 ?See Below 05/19/2014 ?? 01:10:17 ?? 0.0 ?See Below 05/20/2014 ??22:37:00 ??Morph Screen ? Original results obtained required verification by alternate ? method(s). ??Refer to CBC and/or observation sections for detailed ? results. 05/20/2014 ??00:32:30 ??Morph Screen ? Original results obtained required verification by alternate ? method(s). ??Refer to CBC and/or observation sections for detailed ? results. 05/19/2014 ??01:10:17 ??Morph Screen ? Original results obtained required verification by alternate ? method(s). ??Refer to CBC and/or observation sections for detailed ? results. ? MISCELLANEOUS HEMATOLOGY ?Test: Extra Slide ? Reference: ? Units: 05/19/2014 ?? 01:10:17 ?? Test Completed ?SPECIAL STAINS ?Test: Frazier Stain ? Reference: ? Units: 05/22/2014 ?? 11:00:00 ?? Test Completed 05/21/2014 ?? 23:20:00 ?? Test Completed ? HEMOSTASIS AND THROMBOSIS ?Routine Coagulation Studies ?Test: PT ?INR ?aPTT ? Reference: [9.0-12.0] ??[0.90-1.20] ??[25.0-37.0] ? Units: sec ?sec 05/21/2014 ?? 23:07:00 ?? 10.4 ?0.99 ? 26.3 05/20/2014 ?? 00:32:12 ?? 10.7 ?1.02 ? 28.1 05/20/2014 00:32:12 INR: Interpretive Data Inpatient therapeutic ranges* Atrial fibrillation ?2.0-3.0 INR Venous thrombo-embolism ?2.0-3.0 INR Bioprosthetic heart valve ?* Mechanical heart valve, bileaflet or tilting disk,aortic position ? 2.0-3.0 INR All other,or bileaflet or tilting disk, in mitral position ? 2.5-3.5 INR *See the pharmacy resource directory (PHRED) for an updated copy of the Tool Book at [email or web address] Current Interpretive Data was last revised 2012. 05/20/2014 00:32:12 aPTT: Interpretive Data Therapeutic heparin range:60.0 - 94.0 sec based on correlation with therapeutic heparin activity range of 0.3 -0.7 Units/mL. Current interpretive data was last revised on 2011. ? IMMUNOPHENOTYPING ?Test: Leuk/Lym Result ??CD 3 ?CD 19 ? Reference: ? Units: 05/22/2014 ?? 11:00:00 ?? See Below 05/21/2014 ?? 23:20:00 ?? See Below ?Test Completed ??Test Completed 05/22/2014 ??11:00:00 ??Leuk/Lym Result ? See separate Surgical Pathology report. 05/21/2014 ??23:20:00 ??Leuk/Lym Result ? See separate Surgical Pathology report. ?Test: CD 20 ? CD 45 ? [place] ? Reference: ? Units: 05/21/2014 ?? 23:20:00 ?? Test Completed ??Test Completed ??Test Completed ?Test: Lambda ? Reference: ? Units: 05/21/2014 ?? 23:20:00 ?? Test Completed ?SEROLOGY - VIRAL TESTS ?Test: EBV, IgM i ? Reference: ? Units: 05/19/2014 ?? 09:20:00 ?? Non-Reactive 05/19/2014 09:20:00 EBV, IgM: Interpretive Data Non-reactive: No detectable IgM antibodies to EBV-VCA. A non-reactive result indicates no current infection with EBV. If clinical suspicion of acute EBV infection is present, testing should be repeated after one week. Reactive: A reactive test result indicates a current or reactivated infection with EBV. Indeterminate: If the sample is indeterminate, recommend repeating the test with a second sample within one week. Specimens that remain equivocal after repeat testing can be sent for testing by an alternate method (IFA) if desired. Contact the lab at [phone] if testing by IFA is requested. Current interpretive data was last revised on 2013. ? HIV / HTLV TESTS ?Test: HIV 1-2 Antibodies ? Reference: [NEG] ? Units: 05/20/2014 ?? 00:32:00 ?? NEG ? SEROLOGY-BACTERIAL TESTS ?Test: B henselae Ab, IgG ??B henselae Ab, IgM ? Reference: [<1:128] ?[<1:20] ? Units: titer ? titer 05/21/2014 ?? 23:07:00 ?? <1:128 ?<1:20 ?Test: B luna Ab, IgG ??B luna Ab, IgM ? Reference: [<1:128] ?[<1:20] ? Units: titer ? titer 05/21/2014 ?? 23:07:00 ?? <1:128 ?<1:20 ??f 05/21/2014 23:07:00 ??B luna Ab, IgM: Analyte Specific Reagent: This test was developed and its performance characteristics determined by [facility]. It has not been cleared or approved by the U.S. Food and Drug Administration. Test Performed by: [place] [address] [employer]: Tolu Christiansen III, M.D. ? TRANSFUSION MEDICINE ?Test: Indirect Carol. ??ABO/Rh Pat Interp ? Reference: ? Units: 05/19/2014 ?? 01:10:00 ?? Negative ?A Positive ? MICROBIOLOGY - ALL TESTS ? PROCEDURE: Aerobic and Anaerobic Culture and Gram Stain ?SOURCE: Biopsy COLLECTED: 05/22/14 ??0845 ? BODY SITE: Lymph node STARTED: 05/22/14 ??0853 FREE TEXT SOURCE: DIRECT SPECIMEN EXAMINATION Stain REPORTED: 05/22/14 0945 Few polymorphonuclear leukocytes seen. No organisms seen. FINAL REPORT REPORTED: 05/27/14 1039 No growth ORDER COMMENTS (1)Specimen collected in the operating room. * * * ??Interpretive Results ??* * * (1)Specimens submitted from normally sterile body sites will have all bacterial morphotypes identified. Specimens that contain grossly mixed ellie and/or are from body sites that are not normally sterile will be examined for Staphylococcus aureus, Pseudomonas aeruginosa, beta-hemolytic strep, vancomycin-resistant Enterococcus, Bacteroides fragilis, Clostridium perfringens and fungus. If any of these are isolated, the organism will be reported.Current interpretive data was last revised on 2013. ? MICROBIOLOGY - ALL TESTS ? PROCEDURE: Bartonella PCR ?SOURCE: Tissue COLLECTED: 05/22/14 ??0845 ? BODY SITE: Lymph node STARTED: 05/22/14 ??1022 FREE TEXT SOURCE: FINAL REPORT REPORTED: 05/24/14 1245 Negative ORDER COMMENTS (1)Specimen collected in the operating room. ??Testing performed by: [place], [place]. ??[id number]. * * * ??Interpretive Results ??* * * (1)The Bartonella PCR assay performed amplifies a segment of the heme-binding phage associated protein of Bartonella henselae. It does not amplify Bartonella species other than B. henselae. Bartonella henselae is the cause of cat scratch disease. ??Other species are rare causes of human disease. ??If there is clinical suspicion of other Bartonella species, contact the Microbiology Laboratory Medicine resident ([phone]) or call the Virology [employer] ([phone]). ??This test was developed and its performance characteristics determined by [facility]. ??It has not been cleared or approved by the U.S. Food and Drug Administration. Current interpretive data was last revised on 2010. ? PROCEDURE: Cytomegalovirus PCR, Blood ?SOURCE: Blood COLLECTED: 05/19/14 ??0920 ? BODY SITE: STARTED: 05/19/14 ??1231 FREE TEXT SOURCE: FINAL REPORT REPORTED: 05/20/14 1156 CMV DNA DETECTED (POSITIVE). ??The level of CMV DNA is below the level of accurate quantitation (<450 copies/mL which is equivalent to <870 International Units/mL). ORDER COMMENTS (1)Testing performed by: [place], [place]. ??[id number]. ??Testing performed by: [place], [place]. ??[id number]. ? MICROBIOLOGY - ALL TESTS ? PROCEDURE: Cytomegalovirus PCR, Blood ?SOURCE: Blood COLLECTED: 05/19/14 ??0920 ? BODY SITE: STARTED: 05/19/14 ??1231 FREE TEXT SOURCE: * * * ??Interpretive Results ??* * * (1)This assay is based on the commercial [employer]x ([employer]) quantitative real-time PCR assay employing primers that amplify a portion of the major immediate early gene of human cytomegalovirus. The assay does not amplify any of the other human herpes viruses or human DNA.With this assay, results will no longer be reported in copies/mL of blood, but rather International Units (IU)/mL of blood. The CMV International Unit was developed by the WHO and is based on a consensus quantitative level of a preparation of CMV DNA as tested by a number of reference laboratories. The adoption of the International Unit as a measure of reporting quantitative CMV results will help with the standardization of quantitative CMV results between laboratories employing different assays and should assist with the development of critical levels for the management of patients at risk for CMV disease.The laboratory will report levels of CMV IU/mL of blood as log base 10 transformed numbers as is the practice for other blood-borne viral pathogens, such as HIV and hepatitis C and B. The benefit of this practice is to smooth out the natural variation of the results produced by all quantitative PCR assays. ??Because of the large number of changes being made to the quantitative CMV assay, to assist clinicians during the transition to the new assay, for a period of 6 months positive patient results will be reported in both copies/mL and IU/mL, as well as the log base 10 transformed results of those values.The lower limit of detection of the assay is 100 IU/mL. The assay is accurate for quantitation in the range of 870 to 5,800,000 IU/mL (equivalent to 450 to 4,500,000 copies/mL), or 2.9 to 6.8 log(10) IU/mL. Specimens found to have detectable CMV DNA beneath the level of accurate quantitation are reported as CMV DNA DETECTED (POSITIVE): The level of CMV DNA is below the level of accurate quantitation. If the specimen is positive with >5,800,000 IU/mL, a preliminary report is issued stating CMV DNA DETECTED (POSITIVE): The level of CMV DNA is greater than the level of accurate quantitation and the specimen is subsequently retested after dilution in order to determine the IU/mL. Testing of 200 previously positive specimens with this assay revealed that results in IU/mL are approximately 3-4 times higher than the copies/mL results generated by the previous laboratory-developed assay. ??About 50% of this difference is due to the switch to the International Unit and 50% is due to the new commercial assay. This test was validated and its performance characteristics determined by [facility]. It has not been cleared or approved by the U.S. Food and Drug Administration.Current interpretive data was last revised on 2013. ? MICROBIOLOGY - ALL TESTS ? PROCEDURE: Cytomegalovirus PCR, Blood ?SOURCE: Blood COLLECTED: 05/19/14 ??0920 ? BODY SITE: STARTED: 05/19/14 ??1231 FREE TEXT SOURCE: ? PROCEDURE: Nadine Borrego Virus (EBV) Quantitative PCR ?SOURCE: Blood COLLECTED: 05/19/14 ??0920 ? BODY SITE: STARTED: 05/21/14 ??1732 FREE TEXT SOURCE: FINAL REPORT REPORTED: 05/23/14 1116 Positive: 41,695 copies/mL. ORDER COMMENTS (1)Testing performed by: [facility], [place], [place]. ??[address]. ? MICROBIOLOGY - ALL TESTS ? PROCEDURE: Nadine Borrego Virus (EBV) Quantitative PCR ?SOURCE: Blood COLLECTED: 05/19/14 ??0920 ? BODY SITE: STARTED: 05/21/14 ??1732 FREE TEXT SOURCE: * * * ??Interpretive Results ??* * * (1)The EBV Quantitative PCR assay used to measure EBV DNA amplifies a segment of the EBNA-1 gene and accurate detection is possible for levels as low as 200 genome copies per milliliter of whole blood. ??The assay is accurate for quantitation in the range of 4, 000 to 40,000,000 genome copies/ml. ??Specimens found [...] a preliminary report issued stating Positive: >40,000, 000 copies/ml . ??The specimen is subsequently retested after dilution to determine the actual copy number. ??This test was developed, and its performance characteristics were determined, by the [facility]. ??It has not been cleared or approved by the U.S. Food and Drug Administration.Specimen Specific Comments: Measurement of EBV DNA in blood has been used primarily to assist in the identification of solid organ and hematopoietic stem cell transplant recipients who currently have, or are at risk for the development of post-transplant lymphoproliferative disorder (PTLD). ??There is no quantitative cutoff for whole blood EBV that is diagnostic of PTLD, however levels above approximately 5, 000 genome copies per milliliter indicate an increased risk, and that risk rises with increasing levels of EBV. ??Failure to detect EBV DNA in whole blood has a high negative predictive value (greater than 95% in several studies) for excluding the diagnosis of PTLD, but can never completely rule out that diagnosis. ??A rapid rise in serially monitored whole blood samples may be more significant than the absolute level of EBV. Low levels of EBV, usually less than [...] milliliter indicates a high risk of PTLD. Patients with acute mononucleosis may have levels of 100,000 genome copies per milliliter of whole blood, but under normal circumstances these levels decline within several weeks of the onset of symptoms. ??Current interpretive data was last revised on 2010. ? MICROBIOLOGY - ALL TESTS ? PROCEDURE: Nadine Borrego Virus (EBV) Quantitative PCR ?SOURCE: Blood COLLECTED: 05/19/14 ??0920 ? BODY SITE: STARTED: 05/21/14 ??1732 FREE TEXT SOURCE: ? PROCEDURE: Mycobacteriology Culture ?SOURCE: Biopsy COLLECTED: 05/22/14 ??0845 ? BODY SITE: Lymph node STARTED: 05/22/14 ??0853 FREE TEXT SOURCE: FINAL REPORT REPORTED: 07/19/14 1206 No growth of acid-fast bacilli ORDER COMMENTS (1)Rt Neck Lymph Specimen collected in the operating room. ? PROCEDURE: Mycology Culture ?SOURCE: Biopsy COLLECTED: 05/22/14 ??0845 ? BODY SITE: Lymph node STARTED: 05/22/14 ??0853 FREE TEXT SOURCE: FINAL REPORT REPORTED: 06/21/14 0758 No growth of fungus ORDER COMMENTS (1)Specimen collected in the operating room. ? MICROBIOLOGY - MISCELLANEOUS ? PROCEDURE: Aerobic and Anaerobic Culture and Gram Stain ?SOURCE: Biopsy COLLECTED: 05/22/14 ??0845 ? BODY SITE: Lymph node STARTED: 05/22/14 ??0853 FREE TEXT SOURCE: DIRECT SPECIMEN EXAMINATION Stain REPORTED: 05/22/14 0945 Few polymorphonuclear leukocytes seen. No organisms seen. FINAL REPORT REPORTED: 05/27/14 1039 No growth ORDER COMMENTS (1)Specimen collected in the operating room. * * * ??Interpretive Results ??* * * (1)Specimens submitted from normally sterile body sites will have all bacterial morphotypes identified. Specimens that contain grossly mixed ellie and/or are from body sites that are not normally sterile will be examined for Staphylococcus aureus, Pseudomonas aeruginosa, beta-hemolytic strep, vancomycin-resistant Enterococcus, Bacteroides fragilis, Clostridium perfringens and fungus. If any of these are isolated, the organism will be reported.Current interpretive data was last revised on 2013. ? MICROBIOLOGY - MOLECULAR TESTING ? PROCEDURE: Bartonella PCR ?SOURCE: Tissue COLLECTED: 05/22/14 ??0845 ? BODY SITE: Lymph node STARTED: 05/22/14 ??1022 FREE TEXT SOURCE: FINAL REPORT REPORTED: 05/24/14 1245 Negative ORDER COMMENTS (1)Specimen collected in the operating room. ??Testing performed by: [place] [facility], [place], [place]. ??[address]. ? MICROBIOLOGY - MOLECULAR TESTING ? PROCEDURE: Bartonella PCR ?SOURCE: Tissue COLLECTED: 05/22/14 ??0845 ? BODY SITE: Lymph node STARTED: 05/22/14 ??1022 FREE TEXT SOURCE: * * * ??Interpretive Results ??* * * (1)The Bartonella PCR assay performed amplifies a segment of the heme-binding phage associated protein of Bartonella henselae. It does not amplify Bartonella species other than B. henselae. Bartonella henselae is the cause of cat scratch disease. ??Other species are rare causes of human disease. ??If there is clinical suspicion of other Bartonella species, contact the Microbiology Laboratory Medicine resident ([phone]) or call the Virology [employer] ([phone]). ??This test was developed and its performance characteristics determined by [facility]. ??It has not been cleared or approved by the U.S. Food and Drug Administration. Current interpretive data was last revised on 2010. ? PROCEDURE: Cytomegalovirus PCR, Blood ?SOURCE: Blood COLLECTED: 05/19/14 ??0920 ? BODY SITE: STARTED: 05/19/14 ??1231 FREE TEXT SOURCE: FINAL REPORT REPORTED: 05/20/14 1156 CMV DNA DETECTED (POSITIVE). ??The level of CMV DNA is below the level of accurate quantitation (<450 copies/mL which is equivalent to <870 International Units/mL). ORDER COMMENTS (1)Testing performed by: [place], [place]. ??[address]. ??Testing performed by: [place], [place]. ??[address]. ? MICROBIOLOGY - MOLECULAR TESTING ? PROCEDURE: Cytomegalovirus PCR, Blood ?SOURCE: Blood COLLECTED: 05/19/14 ??0920 ? BODY SITE: STARTED: 05/19/14 ??1231 FREE TEXT SOURCE: * * * ??Interpretive Results ??* * * (1)This assay is based on the commercial PrimeraDx (Prim[employer]) quantitative real-time PCR assay employing primers that amplify a portion of the major immediate early gene of human cytomegalovirus. The assay does not amplify any of the other human herpes viruses or human DNA.With this assay, results will no longer be reported in copies/mL of blood, but rather International Units (IU)/mL of blood. The CMV International Unit was developed by the WHO and is based on a consensus quantitative level of a preparation of CMV DNA as tested by a number of reference laboratories. The adoption of the International Unit as a measure of reporting quantitative CMV results will help with the standardization of quantitative CMV results between laboratories employing different assays and should assist with the development of critical levels for the management of patients at risk for CMV disease.The laboratory will report levels of CMV IU/mL of blood as log base 10 transformed numbers as is the practice for other blood-borne viral pathogens, such as HIV and hepatitis C and B. The benefit of this practice is to smooth out the natural variation of the results produced by all quantitative PCR assays. ??Because of the large number of changes being made to the quantitative CMV assay, to assist clinicians during the transition to the new assay, for a period of 6 months positive patient results will be reported in both copies/mL and IU/mL, as well as the log base 10 transformed results of those values.The lower limit of detection of the assay is 100 IU/mL. The assay is accurate for quantitation in the range of 870 to 5,800,000 IU/mL (equivalent to 450 to 4,500,000 copies/mL), or 2.9 to 6.8 log(10) IU/mL. Specimens found to have detectable CMV DNA beneath the level of accurate quantitation are reported as CMV DNA DETECTED (POSITIVE): The level of CMV DNA is below the level of accurate quantitation. If the specimen is positive with >5,800,000 IU/mL, a preliminary report is issued stating CMV DNA DETECTED (POSITIVE): The level of CMV DNA is greater than the level of accurate quantitation and the specimen is subsequently retested after dilution in order to determine the IU/mL. Testing of 200 previously positive specimens with this assay revealed that results in IU/mL are approximately 3-4 times higher than the copies/mL results generated by the previous laboratory-developed assay. ??About 50% of this difference is due to the switch to the International Unit and 50% is due to the new commercial assay. This test was validated and its performance characteristics determined by [facility]. It has not been cleared or approved by the U.S. Food and Drug Administration.Current interpretive data was last revised on 2013. ? MICROBIOLOGY - MOLECULAR TESTING ? PROCEDURE: Cytomegalovirus PCR, Blood ?SOURCE: Blood COLLECTED: 05/19/14 ??0920 ? BODY SITE: STARTED: 05/19/14 ??1231 FREE TEXT SOURCE: ? PROCEDURE: Nadine Borrego Virus (EBV) Quantitative PCR ?SOURCE: Blood COLLECTED: 05/19/14 ??0920 ? BODY SITE: STARTED: 05/21/14 ??1732 FREE TEXT SOURCE: FINAL REPORT REPORTED: 05/23/14 1116 Positive: 41,695 copies/mL. ORDER COMMENTS (1)Testing performed by: [facility], [place], [place]. ??[address]. ? MICROBIOLOGY - MOLECULAR TESTING ? PROCEDURE: Nadine Borrego Virus (EBV) Quantitative PCR ?SOURCE: Blood COLLECTED: 05/19/14 ??0920 ? BODY SITE: STARTED: 05/21/14 ??1732 FREE TEXT SOURCE: * * * ??Interpretive Results ??* * * (1)The EBV Quantitative PCR assay used to measure EBV DNA amplifies a segment of the EBNA-1 gene and accurate detection is possible for levels as low as 200 genome copies per milliliter of whole blood. ??The assay is accurate for quantitation in the range of 4, 000 to 40,000,000 genome copies/ml. ??Specimens found [...] a preliminary report issued stating Positive: >40,000, 000 copies/ml . ??The specimen is subsequently retested after dilution to determine the actual copy number. ??This test was developed, and its performance characteristics were determined, by the [facility]. ??It has not been cleared or approved by the U.S. Food and Drug Administration.Specimen Specific Comments: Measurement of EBV DNA in blood has been used primarily to assist in the identification of solid organ and hematopoietic stem cell transplant recipients who currently have, or are at risk for the development of post-transplant lymphoproliferative disorder (PTLD). ??There is no quantitative cutoff for whole blood EBV that is diagnostic of PTLD, however levels above approximately 5, 000 genome copies per milliliter indicate an increased risk, and that risk rises with increasing levels of EBV. ??Failure to detect EBV DNA in whole blood has a high negative predictive value (greater than 95% in several studies) for excluding the diagnosis of PTLD, but can never completely rule out that diagnosis. ??A rapid rise in serially monitored whole blood samples may be more significant than the absolute level of EBV. Low levels of EBV, usually less than [...] milliliter indicates a high risk of PTLD. Patients with acute mononucleosis may have levels of 100,000 genome copies per milliliter of whole blood, but under normal circumstances these levels decline within several weeks of the onset of symptoms. ??Current interpretive data was last revised on 2010. ? MICROBIOLOGY - MOLECULAR TESTING ? PROCEDURE: Nadine Borrego Virus (EBV) Quantitative PCR ?SOURCE: Blood COLLECTED: 05/19/14 ??0920 ? BODY SITE: STARTED: 05/21/14 ??1732 FREE TEXT SOURCE: ? MICROBIOLOGY - MYCOBACTERIOLOGY ? PROCEDURE: Mycobacteriology Culture ?SOURCE: Biopsy COLLECTED: 05/22/14 ??0845 ? BODY SITE: Lymph node STARTED: 05/22/14 ??0853 FREE TEXT SOURCE: FINAL REPORT REPORTED: 07/19/14 1206 No growth of acid-fast bacilli ORDER COMMENTS (1)Rt Neck Lymph Specimen collected in the operating room. ? MICROBIOLOGY - MYCOLOGY ? PROCEDURE: Mycology Culture ?SOURCE: Biopsy COLLECTED: 05/22/14 ??0845 ? BODY SITE: Lymph node STARTED: 05/22/14 ??0853 FREE TEXT SOURCE: FINAL REPORT REPORTED: 06/21/14 0758 No growth of fungus ORDER COMMENTS (1)Specimen collected in the operating room. ? CANCELLED TESTS Date ?Time ?Test ? Cancel Reason 05/19/2014 ??10:30:00 ??LD 05/20/2014 ??11:00:00 ??[facility] us Historical Provider LAB BLOOD ORDERABLES Chata l Result HISTORICAL RESULTS * All Microbiology Report Section (05/22/2014 12:00 AM CDT) 05/22/2014 Narrative HISTORICAL RESULTS - 05/24/2014 5:18 PM CDT ? [facility] ?[address] [facility] [place] ?[place], [facility] [address] ? Patient Name: ??ADI NICHOLS ? Med Rec Number: [id number] ? Fin Number: ?[id number] ? Date: ?1995 ? Sex/Age: ? Male 19 years ? Admit Date: ?05/19/2014 ? Discharge Date: 05/22/2014 ? Doctor: ?MEDICINE , 1302 ? Facility: ?[facility] ? Location: ?OTHER ?* Abnormal ??A Alert ??f Footnote ??^ Corrected ??L Low ??H High ?i Interp Data ??@ Ref Lab ? Chart Type:Cumulative ?* * * * MICROBIOLOGY - MOLECULAR TESTING * * * * ?PROCEDURE: Bartonella PCR ? SOURCE: Tissue ? COLLECTED: 05/22/14 ??0845 ?BODY SITE: Lymph node ? STARTED: 05/22/14 ??1022 ? FREE TEXT SOURCE: ? FINAL REPORT ? REPORTED: 05/24/14 1245 ? Negative ? ORDER COMMENTS ? (1)Specimen collected in the operating room. ? Testing performed by: ? [facility], [place], [place]. ??[address]. ?* * * ??Interpretive Results ??* * * ? (1)The Bartonella PCR assay performed amplifies a segment of the ? heme-binding phage associated protein of Bartonella henselae. ? It does not amplify Bartonella species other than B. henselae. ? Bartonella henselae is the cause of cat scratch disease. ??Other ? species are rare causes of human disease. ??If there is clinical ? suspicion of other Bartonella species, contact the Microbiology ? Laboratory Medicine resident ([phone]) or call the ? Virology [employer] ([phone]). ??This test was ? developed and its performance characteristics determined by [facility]. ??It has not ? been cleared or approved by the U.S. Food and Drug ? Administration. Current interpretive data was last revised on ? 05/19/2010. ? us Historical Provider MD LAB MICROBIOLOGY - GENERA L ORDERABLES Final Result HISTORICAL RESULTS * All Microbiology Report Section (05/22/2014 12:00 AM CDT) 05/22/2014 Narrative HISTORICAL RESULTS - 07/19/2014 2:34 PM CDT ? [facility] ?[address] [facility] ?[place], [place] [address] ? Patient Name: ??ADI NICHOLS ? Med Rec Number: [id number] ? Fin Number: ?[id number] ? Date: ?1995 ? Sex/Age: ? Male 19 years ? Admit Date: ?05/19/2014 ? Discharge Date: 05/22/2014 ? Doctor: ?MEDICINE , 1302 ? Facility: ?[facility] ? Location: ?OTHER ?* Abnormal ??A Alert ??f Footnote ??^ Corrected ??L Low ??H High ?i Interp Data ??@ Ref Lab ? Chart Type:Cumulative ?* * * * MICROBIOLOGY - MYCOBACTERIOLOGY * * * * ?PROCEDURE: Mycobacteriology Culture ? SOURCE: Biopsy ? COLLECTED: //14 ??0845 ?BODY SITE: Lymph node ? STARTED: //14 ??0853 ? FREE TEXT SOURCE: ? FINAL REPORT ? REPORTED: 07/19/14 1206 ? No growth of acid-fast bacilli ? ORDER COMMENTS ? (1)Rt Neck Lymph ? Specimen collected in the operating room. ? us Historical Provider MD LAB MICROBIOLOGY - GENERA L ORDERABLES Final Result HISTORICAL RESULTS * All Microbiology Report Section (05/22/2014 12:00 AM CDT) 05/22/2014 Narrative HISTORICAL RESULTS - 06/21/2014 11:08 AM CDT ? [facility] ?[address] [facility] ?[place], [place] [address] ? Patient Name: ??ADI NICHOLS ? Med Rec Number: [id number] ? Fin Number: ?[id number] ? Date: ?1995 ? Sex/Age: ? Male 19 years ? Admit Date: ?05/19/2014 ? Discharge Date: 05/22/2014 ? Doctor: ?MEDICINE , 1302 ? Facility: ?[facility] ? Location: ?OTHER ?* Abnormal ??A Alert ??f Footnote ??^ Corrected ??L Low ??H High ?i Interp Data ??@ Ref Lab ? Chart Type:Cumulative ?* * * * MICROBIOLOGY - MYCOLOGY * * * * ?PROCEDURE: Mycology Culture ? SOURCE: Biopsy ? COLLECTED: 05/22/14 ??0845 ?BODY SITE: Lymph node ? STARTED: 05/22/14 ??0853 ? FREE TEXT SOURCE: ? FINAL REPORT ? REPORTED: 06/21/14 0758 ? No growth of fungus ? ORDER COMMENTS ? (1)Specimen collected in the operating room. ? us Historical Provider MD LAB MICROBIOLOGY - GENERA L ORDERABLES Final Result HISTORICAL RESULTS * All Microbiology Report Section (05/22/2014 12:00 AM CDT) 05/22/2014 Narrative HISTORICAL RESULTS - 05/27/2014 1:17 PM CDT ? [facility] ?[address] [facility] [place] ?[place], [facility] [address] ? Patient Name: ??ADI NICHOLS ? Med Rec Number: [id number] ? Fin Number: ?[id number] ? Date: ?1995 ? Sex/Age: ? Male 19 years ? Admit Date: ?05/19/2014 ? Discharge Date: 05/22/2014 ? Doctor: ?MEDICINE , 1302 ? Facility: ?[facility] ? Location: ?OTHER ?* Abnormal ??A Alert ??f Footnote ??^ Corrected ??L Low ??H High ?i Interp Data ??@ Ref Lab ? Chart Type:Cumulative ?* * * * MICROBIOLOGY - MISCELLANEOUS * * * * ?PROCEDURE: Aerobic and Anaerobic Culture and Gram Stain ? SOURCE: Biopsy ? COLLECTED: 05/22/14 ??0845 ?BODY SITE: Lymph node ? STARTED: 05/22/14 ??0853 ? FREE TEXT SOURCE: ? DIRECT SPECIMEN EXAMINATION ? Stain ? REPORTED: 05/22/14 0945 ? Few polymorphonuclear leukocytes seen. ? No organisms seen. ? FINAL REPORT ? REPORTED: 05/27/14 1039 ? No growth ? ORDER COMMENTS ? (1)Specimen collected in the operating room. ?* * * ??Interpretive Results ??* * * ? (1)Specimens submitted from normally sterile body sites will have ? all bacterial morphotypes identified. Specimens that contain ? grossly mixed ellie and/or are from body sites that are not ? normally sterile will be examined for Staphylococcus aureus, ? Pseudomonas aeruginosa, beta-hemolytic strep, ? vancomycin-resistant Enterococcus, Bacteroides fragilis, ? Clostridium perfringens and fungus. If any of these are isolated, ? the organism will be reported.Current interpretive data was ? last revised on 03/07/2013. ? Historical Provider LAB MICROBIOLOGY - GENERA L ORDERABLES Final Result Performing Organization Address [facility] de Phone Number HISTORICAL RESULTS * Blood lymphocyte, leukemia/lymphoma (05/21/2014 11:20 PM CDT) CD3 cells Test Completed HISTORICAL RESULTS CD19 cells Test Completed HISTORICAL RESULTS CD20 cells Test Completed HISTORICAL RESULTS CD45 cells Test Completed HISTORICAL RESULTS Anasco cells Test Completed HISTORICAL RESULTS Lambda cells Test Completed HISTORICAL RESULTS Frazier stain Test Completed HISTORICAL RESULTS Leukemia/lymp josé manuel panel result See separate Surgical Pathology report HISTORICAL RESULTS Leukocyte, NOS 05/21/2014 11 :20 PM CDT Imani Weinberg MD LAB BLOOD ORDERABLES Final Res ult Performing Organization Address [facility] de Phone Number HISTORICAL RESULTS * Plasma partial thromboplastin time (PTT) (05/21/2014 11:07 PM CDT) APTT 26.3 25.0 - 37.0 seconds HISTORICAL RESULTS Comment: Interpretive Data Therapeutic heparin range:60.0 - 94.0 sec based on correlation with therapeutic heparin activity range of 0.3 -0.7 Units/mL. Current interpretive data was last revised on 2011. Plasma 05/21/2014 11:0 7 PM CDT Theodore Austin LAB BLOOD ORDERABLES Final Resul t Performing Organization Address [facility] de Phone Number HISTORICAL RESULTS * Plasma basic metabolic panel (05/21/2014 11:07 PM CDT) Sodium 136 135 - 145 mmol/L HISTORICAL RESULTS K, pl 3.9 3.3 - 4.9 mmol/L HISTORICAL RESULTS Chloride 102 97 - 110 mmol/L HISTORICAL RESULTS CO2 24 22 - 32 mmol/L HISTORICAL RESULTS A. gap 10 0 - 16 mmol/L HISTORICAL RESULTS Glucose 95 70 - 199 mg/dl HISTORICAL RESULTS BUN 13 8 - 25 mg/dl HISTORICAL RESULTS Creatinine 0.89 0.70 - 1.30 mg/dl HISTORICAL RESULTS Calcium 9.3 8.6 - 10.3 mg/dl HISTORICAL RESULTS Plasma 05/21/2014 11:0 7 PM CDT Theodore Geovanna LAB BLOOD ORDERABLES Final Resul t HISTORICAL RESULTS * Plasma prothrombin time (PT) (05/21/2014 11:07 PM CDT) Prothrombin time (PT) 10.4 9.0 - 12.0 [...] updated copy of the Tool Book at [email or web address] Current Interpretive Data was last revised 2012. Plasma 05/21/2014 11:0 7 PM CDT Theodore Ranberry LAB BLOOD ORDERABLES Final Resul t HISTORICAL RESULTS * (ABNORMAL) Blood cell count (CBC) (05/21/2014 11:07 PM CDT) WBC 8.9 3.8 - 9.8 K/cumm HISTORICAL RESULTS RBC 4.48(L) 4.50 - 5.70 M/cumm HISTORICAL RESULTS Hgb 14.8 13.8 - 17.2 g/dl HISTORICAL RESULTS Hct 43.8 40.7 - 50.3 % HISTORICAL RESULTS MCV 97.8(H) 80.0 - 97.6 fl HISTORICAL RESULTS MCH 33.0 26.7 - 33.7 pg HISTORICAL RESULTS MCHC 33.8 32.7 - 35.5 g/dl HISTORICAL RESULTS Rdw 15.0(H) 11.8 - 14.6 % HISTORICAL RESULTS Platelets 143 140 - 440 K/cumm HISTORICAL RESULTS Comment:Verified MPV 9.6 6.8 - 10.4 fl HISTORICAL RESULTS Neutrophils 37.4(L) 38.7 - 74.5 % HISTORICAL RESULTS Lymphocytes 40.4 20.0 - 54.3 % HISTORICAL RESULTS Monos 19.3(H) 4.3 - 13.5 % HISTORICAL RESULTS Eosinophils 2.4 0.0 - 6.0 % HISTORICAL RESULTS Basophils 0.5 0.0 - 3.0 % HISTORICAL RESULTS Neutrophils, abs 3.3 1.8 - 6.6 K/cumm HISTORICAL RESULTS Lymphocytes, abs 3.6(H) 1.2 - 3.3 K/cumm HISTORICAL RESULTS Monocytes, absolute 1.7(H) 0.2 - 1.2 K/cumm HISTORICAL RESULTS Eosinophils, abs 0.2 0.0 - 0.5 K/cumm HISTORICAL RESULTS Basophils, abs 0.0 0.0 - 0.2 K/cumm HISTORICAL RESULTS Blood specimen (specimen) 05/21/2014 11:07 PM CDT Theodore Ranberry LAB BLOOD ORDERABLES Final Resul t Performing Organization Address City/[facility]/ZIP Co de Phone Number HISTORICAL RESULTS * Serum Bartonella ab (05/21/2014 11:07 PM CDT) Bartonella henselae ab, IgG <1:128 <1:128 titer HISTORICAL RESULTS Bartonella henselae ab, IgM <1:20 <1:20 titer HISTORICAL RESULTS Bartonella luna ab, IgG <1:128 <1:128 titer HISTORICAL RESULTS Bartonella luna ab, IgM <1:20 <1:20 titer HISTORICAL RESULTS Comment: Analyte Specific Reagent: This test was developed and its performance characteristics determined by [facility]. It has not been cleared or approved by the U.S. Food and Drug Administration. Test Performed by: [facility] [place] [address] [employer]vp Marketing: Tolu Christiansen III, M.D. Serum 05/21/2014 11:0 7 PM CDT [facility] LAB BLOOD ORDERABLES Final Resul t HISTORICAL RESULTS * CT Soft Tissue Neck W Contrast (05/21/2014 1:42 PM CDT) Anatomical Region Laterality Modality Head and Neck N/A Computed Tomogra phy 05/21/2014 1:42 PM CDT Narrative 05/21/2014 5:10 PM CDT ALKA MOSQUEDA M.D. YOHAN MORALEZ M.D. FINAL REPORT The radiology attending physician has personally reviewed this study, and has reviewed and/or edited this written report and agrees with it. ACC# ??Date Time ??Exam [id number] May 21, 2014 13:42:[id number] Neck SoftTissue w cont EXAMINATION: ?CT scan of the neck with contrast HISTORY: 19-year-old male with the liver failure status post orthotopic liver transplant as a child. Patient presents with idiopathic thrombocytopenic purpura and large right neck mass. TECHNIQUE: Axial CT images were obtained from the skull base to the thoracic inlet ?? after the uneventful intravenous administration of nonionic contrast according to the standard neck protocol. Contrast information: Intravenous Optiray 350 mg/ml for a total of 96 mL COMPARISON: None available. FINDINGS: Review of the topogram demonstrates no abnormality. There is marked enlarged matted lymph nodes in the bilateral level 5 lizzie regions extending down into the supraclavicular and subpectorally regions, right greater than left. For reference, the largest node is in the right supraclavicular region and measures 2.2 cm 1.4 cm. These lymph nodes are non-necrotic. The muscles of the neck are normal. ??Vessels of the neck demonstrate normal course and caliber. ?? Fascial planes are preserved and the deep spaces of the neck are normal. ?? The visualized airway is widely patent. ?? The base of the skull and the temporal bones are normal. The limited examination of the brain to include the cerebellum and brainstem is normal. The limited view of the [place] is unremarkable. The visualized portions of the orbits are normal. The spinal canal is normal in caliber on axial images. ??Intervertebral disk heights are normal. ??Neural foramina are normal. Limited examination of the superior thorax shows no pulmonary infiltrate, suspicious nodules, or pleural effusions. IMPRESSION: ?? Marked bilateral lymphadenopathy throughout the neck, supraclavicular and subpectoral regions. ??These findings are most consistent with lymphoma or other lymphoproliferative disorder. Requested By: THEODORE AUSTIN ??MKelechi. Dictated By: ?? YOHAN MORALEZ M.D. ??on May 21 2014 ??3:55P This document has been electronically signed by: ALKA MOSQUEDA M.D. on May 21 2014 ??5:10P Procedure Note Provider, MD Dl - 02/28/2017 ALKA MOSQUEDA M.D. YOHAN MORALEZ M.D. FINAL REPORT The radiology attending physician has personally reviewed this study, and has reviewed and/or edited this written report and agrees with it. ACC# Date Time Exam [id number] May 21, 2014 13:42:[id number] Neck SoftTissue w cont EXAMINATION: CT scan of the neck with contrast HISTORY: 19-year-old male with the liver failure status post orthotopic liver transplant as a child. Patient presents with idiopathic thrombocytopenic purpura and large right neck mass. TECHNIQUE: Axial CT images were obtained from the skull base to the thoracic inlet after the uneventful intravenous administration of nonionic contrast according to the standard neck protocol. Contrast information: Intravenous Optiray 350 mg/ml for a total of 96 mL COMPARISON: None available. FINDINGS: Review of the topogram demonstrates no abnormality. There is marked enlarged matted lymph nodes in the bilateral level 5 lizzie regions extending down into the supraclavicular and subpectorally regions, right greater than left. For reference, the largest node is in the right supraclavicular region and measures 2.2 cm 1.4 cm. These lymph nodes are non-necrotic. The muscles of the neck are normal. Vessels of the neck demonstrate normal course and caliber. Fascial planes are preserved and the deep spaces of the neck are normal. The visualized airway is widely patent. The base of the skull and the temporal bones are normal. The limited examination of the brain to include the cerebellum and brainstem is normal. The limited view of the [place] is unremarkable. The visualized portions of the orbits are normal. The spinal canal is normal in caliber on axial images. Intervertebral disk heights are normal. Neural foramina are normal. Limited examination of the superior thorax shows no pulmonary infiltrate, suspicious nodules, or pleural effusions. IMPRESSION: Marked bilateral lymphadenopathy throughout the neck, supraclavicular and subpectoral regions. These findings are most consistent with lymphoma or other lymphoproliferative disorder. Requested By: THEODORE AUSTIN M.D. Dictated By: YOHAN MORALEZ M.D. on May 21 2014 3:55P This document has been electronically signed by: ALKA MOSQUEDA M.D. on May 21 2014 5:10P us Historical Provider IMG CT PROCEDURES Final R esult * Surgical pathology (05/21/2014) Narrative 05/21/2014 Ordered by an unspecified provider. us Historical Provider LAB PATHOLOGY ORDERABLES Final Result * (ABNORMAL) Plasma comprehensive metabolic panel (05/20/2014 10:37 PM CDT) Sodium 138 135 - 145 mmol/L HISTORICAL RESULTS K, pl 4.0 3.3 - 4.9 mmol/L HISTORICAL RESULTS Chloride 107 97 - 110 mmol/L HISTORICAL RESULTS CO2 22 22 - 32 mmol/L HISTORICAL RESULTS A. gap 9 0 - 16 mmol/L HISTORICAL RESULTS Glucose 129 70 - 199 mg/dl HISTORICAL RESULTS BUN 15 8 - 25 mg/dl HISTORICAL RESULTS Creatinine 0.69(L) 0.70 - 1.30 mg/dl HISTORICAL RESULTS Calcium 8.7 8.6 - 10.3 mg/dl HISTORICAL RESULTS Protein, pl 9.3(H) 6.5 - 8.5 g/dl HISTORICAL RESULTS Alb 3.6 3.6 - 5.0 g/dl HISTORICAL RESULTS Bilirubin 0.3 0.3 - 1.1 mg/dl HISTORICAL RESULTS Alk phos 162(H) 38 - 126 Units/L HISTORICAL RESULTS AST 60(H) 11 - 47 Units/L HISTORICAL RESULTS ALT 84(H) 7 - 53 Units/L HISTORICAL RESULTS Plasma 05/20/2014 10:3 7 PM CDT Greer Dao Jr., MD PhD LAB BLOOD ORDERABLES Final Result HISTORICAL RESULTS * (ABNORMAL) Blood cell count (CBC) (05/20/2014 10:37 PM CDT) RBC 4.20(L) 4.50 - 5.70 M/cumm HISTORICAL RESULTS Hgb 13.8 13.8 - 17.2 g/dl HISTORICAL RESULTS Hct 41.2 40.7 - 50.3 % HISTORICAL RESULTS MCV 98.1(H) 80.0 - 97.6 fl HISTORICAL RESULTS MCH 32.7 26.7 - 33.7 pg HISTORICAL RESULTS MCHC 33.4 32.7 - 35.5 g/dl HISTORICAL RESULTS Rdw 15.2(H) 11.8 - 14.6 % HISTORICAL RESULTS Platelets 50(L) 140 - 440 K/cumm HISTORICAL RESULTS Comment:verified MPV 10.3 6.8 - 10.4 fl HISTORICAL RESULTS WBC 7.5 3.8 - 9.8 K/cumm HISTORICAL RESULTS Neutrophils 29.7(L) 38.7 - 74.5 % HISTORICAL RESULTS Lymphocytes 45.5 20.0 - 54.3 % HISTORICAL RESULTS Monos 22.2(H) 4.3 - 13.5 % HISTORICAL RESULTS Eosinophils 2.0 0.0 - 6.0 % HISTORICAL RESULTS Basophils 0.6 0.0 - 3.0 % HISTORICAL RESULTS Neutrophils, abs 2.2 1.8 - 6.6 K/cumm HISTORICAL RESULTS Lymphocytes, abs 3.4(H) 1.2 - 3.3 K/cumm HISTORICAL RESULTS Monocytes, absolute 1.7(H) 0.2 - 1.2 K/cumm HISTORICAL RESULTS Eosinophils, abs 0.2 0.0 - 0.5 K/cumm HISTORICAL RESULTS Basophils, abs 0.0 0.0 - 0.2 K/cumm HISTORICAL RESULTS Blood specimen (specimen) 05/20/2014 10:37 PM CDT us Greer Dao Jr., MD PhD LAB BLOOD ORDERABLES Final Result Performing Organization Address [facility] de Phone Number HISTORICAL RESULTS * Blood cell morphologic exam (05/20/2014 10:37 PM CDT) Pathologist [facility] Morphology scrn Original results obtained required verification by alternate method(s). Refer to CBC and/or observation sections for detailed results HISTORICAL RESULTS Blood specimen (specimen) 05/20/2014 10:37 PM CDT us Greer Dao Jr., MD PhD LAB BLOOD ORDERABLES Final Result Performing Organization Address [facility] de Phone Number HISTORICAL RESULTS * Plasma basic metabolic panel (05/20/2014 12:32 AM CDT) Sodium 140 135 - 145 mmol/L HISTORICAL RESULTS K, pl 3.9 3.3 - 4.9 mmol/L HISTORICAL RESULTS Chloride 109 97 - 110 mmol/L HISTORICAL RESULTS CO2 25 22 - 32 mmol/L HISTORICAL RESULTS A. gap 6 0 - 16 mmol/L HISTORICAL RESULTS Glucose 105 70 - 199 mg/dl HISTORICAL RESULTS BUN 13 8 - 25 mg/dl HISTORICAL RESULTS Creatinine 0.75 0.70 - 1.30 mg/dl HISTORICAL RESULTS Calcium 9.1 8.6 - 10.3 mg/dl HISTORICAL RESULTS Plasma 05/20/2014 12:3 2 AM CDT Greer Dao Jr., MD PhD LAB BLOOD ORDERABLES Final Result Performing Organization Address City/State/[facility] Co de Phone Number HISTORICAL RESULTS * (ABNORMAL) Blood cell count (CBC) (05/20/2014 12:32 AM CDT) WBC 5.8 3.8 - 9.8 K/cumm HISTORICAL RESULTS RBC 4.55 4.50 - 5.70 M/cumm HISTORICAL RESULTS Hgb 15.0 13.8 - 17.2 g/dl HISTORICAL RESULTS Hct 43.9 40.7 - 50.3 % HISTORICAL RESULTS MCV 96.6 80.0 - 97.6 fl HISTORICAL RESULTS MCH 32.9 26.7 - 33.7 pg HISTORICAL RESULTS MCHC 34.1 32.7 - 35.5 g/dl HISTORICAL RESULTS Rdw 15.1(H) 11.8 - 14.6 % HISTORICAL RESULTS Platelets 12(C) 140 - 440 K/cumm HISTORICAL RESULTS Comment: Critical result called to Tesha EstrellaRN) on 05/20/2014 01:41:02 CDT by lsd. No clot detected in sample. MPV 11.5(H) 6.8 - 10.4 fl HISTORICAL RESULTS Neutrophils 24.0(L) 38.7 - 74.5 % HISTORICAL RESULTS Lymphocytes 54.0 20.0 - 54.3 % HISTORICAL RESULTS Monos 17.0(H) 4.3 - 13.5 % HISTORICAL RESULTS Eosinophils 4.0 0.0 - 6.0 % HISTORICAL RESULTS Basophils 1.0 0.0 - 3.0 % HISTORICAL RESULTS Neutrophils, abs 1.4(L) 1.8 - 6.6 K/cumm HISTORICAL RESULTS Lymphocytes, abs 3.1 1.2 - 3.3 K/cumm HISTORICAL RESULTS Monocytes, absolute 1.0 0.2 - 1.2 K/cumm HISTORICAL RESULTS Eosinophils, abs 0.2 0.0 - 0.5 K/cumm HISTORICAL RESULTS Basophils, abs 0.1 0.0 - 0.2 K/cumm HISTORICAL RESULTS Blood specimen (specimen) 05/20/2014 12:32 AM CDT Greer Dao Jr., MD PhD LAB BLOOD ORDERABLES Final Result Performing Organization Address City/State/[facility] de Phone Number HISTORICAL RESULTS * Blood cell morphologic exam (05/20/2014 12:32 AM CDT) Morphology scrn Original results obtained required verification by alternate method(s). Refer to CBC and/or observation sections for detailed results HISTORICAL RESULTS Blood specimen (specimen) 05/20/2014 12:32 AM CDT us Greer Dao Jr., MD PhD LAB BLOOD ORDERABLES Final Result Performing Organization Address [facility] de Phone Number HISTORICAL RESULTS * Plasma partial thromboplastin time (PTT) (05/20/2014 12:32 AM CDT) APTT 28.1 25.0 - 37.0 seconds HISTORICAL RESULTS Comment: Interpretive Data Therapeutic heparin range:60.0 - 94.0 sec based on correlation with therapeutic heparin activity range of 0.3 -0.7 Units/mL. Current interpretive data was last revised on 2011. Plasma 05/20/2014 12:3 2 AM CDT us Greer aDo Jr., MD PhD LAB BLOOD ORDERABLES Final Result Performing Organization Address [facility] de Phone Number HISTORICAL RESULTS * Plasma prothrombin time (PT) (05/20/2014 12:32 AM CDT) Prothrombin time (PT) 10.7 9.0 - 12.0 seconds HISTORICAL RESULTS INR 1.02 0.90 - 1.20 HISTORIC AL RESULTS Comment: [...] Tool Book at [email or web address] Current Interpretive Data was last revised 2012. Plasma 05/20/2014 12:3 2 AM CDT us Greer Dao Jr., MD PhD LAB BLOOD ORDERABLES Final Result Performing Organization Address [facility] de Phone Number HISTORICAL RESULTS * Serum uric acid (05/20/2014 12:32 AM CDT) Uric acid 6.4 3.0 - 8.0 mg/dl HISTORICAL RESULTS Serum 05/20/2014 12:3 2 AM CDT us Greer Dao Jr., MD PhD LAB BLOOD ORDERABLES Final Result Performing Organization Address [facility] de Phone Number HISTORICAL RESULTS * Serum Human Immunodeficiency virus (HIV) 1, 2 ab (05/20/2014 12:32 AM CDT) HIV ab Negative NEG HISTORICAL RESULTS Serum 05/20/2014 12:3 2 AM CDT us Greer Dao Jr., MD PhD LAB BLOOD ORDERABLES Final Result Performing Organization Address [facility] de Phone Number HISTORICAL RESULTS * Nadine-Borrego virus (EBV) PCR, quantitative (05/19/2014 9:20 AM CDT) Blood specimen (specimen) (Unknown) 05/19/2014 9:20 AM CDT 05/21/2014 5:32 PM CDT Impressions HISTORICAL RESULTS - 05/23/2014 11:16 AM CDT The EBV Quantitative PCR assay [...] its performance characteristics were determined, by the [facility]. ??It has not been [...] revised on 2010. Narrative HISTORICAL RESULTS - 05/23/2014 11:16 AM CDT Positive: 41,695 copies/mL. us Historical Provider LAB MICROBIOLOGY - GENERA L ORDERABLES Final Result HISTORICAL RESULTS * Cytomegalovirus (CMV) PCR (05/19/2014 9:20 AM CDT) Blood specimen (specimen) (Unknown) 05/19/2014 9:20 AM CDT 05/19/2014 12:31 PM CDT Impressions HISTORICAL RESULTS - 05/20/2014 11:56 AM CDT This assay is based on the commercial G[employer]h/[employer] quantitative real- time PCR assay employing primers that amplify a portion of the major immediate early gene of human cytomegalovirus. The assay does not amplify any of the other human herpes viruses or human DNA. With this assay, results will no longer be reported in copies/mL of blood, but rather International Units (IU)/mL of blood. The CMV International Unit was developed by the WHO and is based on a consensus quantitative level of a preparation of CMV DNA as tested by a number of reference laboratories. The adoption of the International Unit as a measure of reporting quantitative CMV results will help with the standardization of quantitative CMV results between laboratories employing different assays and should assist with the development of critical levels for the management of patients at risk for CMV disease. The laboratory will report levels of CMV IU/mL of blood as log base 10 transformed numbers as is the practice for other blood-borne viral pathogens, such as HIV and hepatitis C and B. The benefit of this practice is to smooth out the natural variation of the results produced by all quantitative PCR assays. ?? Because of the large number of changes being made to the quantitative CMV assay, to assist clinicians during the transition to the new assay, for a period of 6 months positive patient results will be reported in both copies/mL and IU/mL, as well as the log base 10 transformed results of those values. The lower limit of detection of the assay is 100 IU/mL. The assay is accurate for quantitation in the range of 870 to 5,800,000 IU/mL (equivalent to 450 to 4,500,000 copies/mL), or 2.9 to 6.8 log(10) IU/mL. Specimens found to have detectable CMV DNA beneath the level of accurate quantitation are reported as CMV DNA DETECTED (POSITIVE): The level of CMV DNA is below the level of accurate quantitation. If the specimen is positive with >5,800,000 IU/mL, a preliminary report is issued stating CMV DNA DETECTED (POSITIVE): The level of CMV DNA is greater than the level of accurate quantitation and the specimen is subsequently retested after dilution in order to determine the IU/mL. Testing of 200 previously positive specimens with this assay revealed that results in IU/mL are approximately 3-4 times higher than the copies/mL results generated by the previous laboratory-developed assay. ??About 50% of this difference is due to the switch to the International Unit and 50% is due to the new commercial assay. This test was validated and its performance characteristics determined by [facility]. It has not been cleared or approved by the U.S. Food and Drug Administration. Current interpretive data was last revised on 2013. Narrative HISTORICAL RESULTS - 05/20/2014 11:56 AM CDT CMV DNA DETECTED (POSITIVE). ??The level of CMV DNA is below the level of accurate quantitation (<450 copies/mL which is equivalent to <870 International Units/mL). us Historical Provider LAB MICROBIOLOGY - GENERA L ORDERABLES Final Result HISTORICAL RESULTS * CHEST RADIOGRAPHY, FRONTAL (AP), LATERAL (05/19/2014 8:44 AM CDT) Anatomical Region Laterality Modality N/A Radiographic Shilpi ging 05/19/2014 8:44 AM CDT Narrative 05/19/2014 11:46 AM CDT ODIN JAY M.D. ADRIANA KELLER, FINAL REPORT The radiology attending physician has personally reviewed this study, and has reviewed and/or edited this written report and agrees with it. ACC# ??Date Time ??Exam [id number] May 19, 2014 08:44:00 [id number] Chest 2 views Front&Lat EXAMINATION: ?? Chest, 2 views ?? IMPRESSION: ?? There is no prior study available for comparison. The lungs are clear. There is no focal consolidation or effusion. There is no pneumothorax seen. Heart size is normal. There are multiple surgical clips in the abdomen. ?? Requested By: GREER DAO M.D. Dictated By: ?? ADRIANA KELLER, ?? on May 19 2014 11:29A This document has been electronically signed by: ODIN JAY M.D. on May 19 2014 11:46A Procedure Note Provider, MD Dl - 02/28/2017 ODIN JAY M.D. ADRIANA KELLER, FINAL REPORT The radiology attending physician has personally reviewed this study, and has reviewed and/or edited this written report and agrees with it. ACC# Date Time Exam [id number] May 19, 2014 08:44:00 [id number] Chest 2 views Front&Lat EXAMINATION: Chest, 2 views IMPRESSION: There is no prior study available for comparison. The lungs are clear. There is no focal consolidation or effusion. There is no pneumothorax seen. Heart size is normal. There are multiple surgical clips in the abdomen. Requested By: GREER DAO M.D. Dictated By: ADRIANA KELLER, on May 19 2014 11:29A This document has been electronically signed by: ODIN JAY M.D. on May 19 2014 11:46A us Historical Provider MD SZYMANSKI XR PROCEDURES Final R esult * Serum Nadine-Brorego virus ab, IgM, viral capsid ag (05/19/2014 4:20 AM CDT) EBV viral capsid ab, IgM Non-Reacti ve HISTORICAL RESULTS Serum 05/19/2014 4:20 AM CDT Narrative HISTORICAL RESULTS - 05/21/2014 7:13 AM CDT Interpretive Data Non-reactive: No detectable IgM antibodies to EBV-VCA. A non-reactive result indicates no current infection with EBV. If clinical suspicion of acute EBV infection is present, testing should be repeated after one week. Reactive: A reactive test result indicates a current or reactivated infection with EBV. Indeterminate: If the sample is indeterminate, recommend repeating the test with a second sample within one week. Specimens that remain equivocal after repeat testing can be sent for testing by an alternate method (IFA) if desired. Contact the lab at [phone] if testing by IFA is requested. ?? Current interpretive data was last revised on 2013. Greer Dao Jr., MD PhD LAB BLOOD ORDERABLES Final Result Performing Organization Address [facility] de Phone Number HISTORICAL RESULTS * (ABNORMAL) Plasma hepatic function panel (05/19/2014 1:10 AM CDT) [facility] Protein, pl 7.6 6.5 - 8.5 g/dl HISTORICAL RESULTS Alb 4.2 3.6 - 5.0 g/dl HISTORICAL RESULTS Bilirubin 0.4 0.3 - 1.1 mg/dl HISTORICAL RESULTS Bilirubin, direct 0.1 0.0 - 0.3 mg/dl HISTORICAL RESULTS Alk phos 167(H) 38 - 126 Units/L HISTORICAL RESULTS AST 65(H) 11 - 47 Units/L HISTORICAL RESULTS ALT 86(H) 7 - 53 Units/L HISTORICAL RESULTS Plasma 05/19/2014 1:10 AM CDT Philip Stack MD LAB BLOOD ORDERABLES Final Result Performing Organization Address [facility] de Phone Number HISTORICAL RESULTS * (ABNORMAL) Serum lactate dehydrogenase (LDH) (05/19/2014 1:10 AM CDT) [facility] Lactate dehydrogenase (LDH) 297(H) 100 - 250 Units/L HISTORICAL RESULTS Comment:{Hemolyzed; result m ay be falsely elevated.} Serum 05/19/2014 1:10 AM CDT Philip Stack MD LAB BLOOD ORDERABLES Final Result Performing Organization Address [facility] de Phone Number HISTORICAL RESULTS * Extra slide preparation (05/19/2014 1:10 AM CDT) [facility] Extra slide prep Test Completed HISTORICAL RESULTS No specimen 05/19/2014 1:10 AM CDT Philip Stack MD LAB BLOOD ORDERABLES Final Result Performing Organization Address [facility] de Phone Number HISTORICAL RESULTS * Plasma basic metabolic panel (05/19/2014 1:10 AM CDT) Sodium 141 135 - 145 mmol/L HISTORICAL RESULTS K, pl 4.3 3.3 - 4.9 mmol/L HISTORICAL RESULTS Comment: Hemolyzed; (++); potassium value may be falsely elevated by as much as 0.3 - 0.5 mmol/L. Suggest redraw and reanalysis. Chloride 105 97 - 110 mmol/L HISTORICAL RESULTS CO2 27 22 - 32 mmol/L HISTORICAL RESULTS A. gap 9 0 - 16 mmol/L HISTORICAL RESULTS Glucose 93 70 - 199 mg/dl HISTORICAL RESULTS BUN 13 8 - 25 mg/dl HISTORICAL RESULTS Creatinine 0.72 0.70 - 1.30 mg/dl HISTORICAL RESULTS Calcium 9.3 8.6 - 10.3 mg/dl HISTORICAL RESULTS Plasma 05/19/2014 1:10 AM CDT Philip Stack MD LAB BLOOD ORDERABLES Final Result Performing Organization Address [facility] de Phone Number HISTORICAL RESULTS * Serum uric acid (05/19/2014 1:10 AM CDT) Uric acid 7.2 3.0 - 8.0 mg/dl HISTORICAL RESULTS Serum 05/19/2014 1:10 AM CDT Philip Stack MD LAB BLOOD ORDERABLES Final Result Performing Organization Address City/[facility] Co de Phone Number HISTORICAL RESULTS * (ABNORMAL) Blood cell count (CBC) (05/19/2014 1:10 AM CDT) WBC 6.9 3.8 - 9.8 K/cumm HISTORICAL RESULTS RBC 4.37(L) 4.50 - 5.70 M/cumm HISTORICAL RESULTS Hgb 14.5 13.8 - 17.2 g/dl HISTORICAL RESULTS Hct 42.6 40.7 - 50.3 % HISTORICAL RESULTS MCV 97.4 80.0 - 97.6 fl HISTORICAL RESULTS MCH 33.2 26.7 - 33.7 pg HISTORICAL RESULTS MCHC 34.0 32.7 - 35.5 g/dl HISTORICAL RESULTS Rdw 15.1(H) 11.8 - 14.6 % HISTORICAL RESULTS Platelets 5(C) 140 - 440 K/cumm HISTORICAL RESULTS Comment: Critical result called to Lina Estrellarn) on 05/19/2014 02:22:47 CDT by bree. MPV 8.2 6.8 - 10.4 fl HISTORICAL RESULTS Neutrophils 22.0(L) 38.7 - 74.5 % HISTORICAL RESULTS Lymphocytes 49.4 20.0 - 54.3 % HISTORICAL RESULTS Monos 24.6(H) 4.3 - 13.5 % HISTORICAL RESULTS Eosinophils 3.4 0.0 - 6.0 % HISTORICAL RESULTS Basophils 0.6 0.0 - 3.0 % HISTORICAL RESULTS Neutrophils, abs 1.5(L) 1.8 - 6.6 K/cumm HISTORICAL RESULTS Lymphocytes, abs 3.4(H) 1.2 - 3.3 K/cumm HISTORICAL RESULTS Monocytes, absolute 1.7(H) 0.2 - 1.2 K/cumm HISTORICAL RESULTS Eosinophils, abs 0.2 0.0 - 0.5 K/cumm HISTORICAL RESULTS Basophils, abs 0.0 0.0 - 0.2 K/cumm HISTORICAL RESULTS Blood specimen (specimen) 05/19/2014 1:10 AM CDT Philip Stack MD LAB BLOOD ORDERABLES Final Result HISTORICAL RESULTS * Blood ABO, Rh, indirect ab screen (05/19/2014 1:10 AM CDT) ABO, Rho(D) A Positive HISTORI PINKY RESULTS Carol, indirect Negative HISTORICAL RESULTS Blood specimen (specimen) 05/19/2014 1:10 AM CDT Philip Stack MD LAB BLOOD ORDERABLES Final Result HISTORICAL RESULTS * Blood cell morphologic exam (05/19/2014 1:10 AM CDT) Morphology scrn Original results obtained required verification by alternate method(s). Refer to CBC and/or observation sections for detailed results HISTORICAL RESULTS Blood specimen (specimen) 05/19/2014 1:10 AM CDT Philip Stack MD LAB BLOOD ORDERABLES Final Result HISTORICAL RESULTS * All Microbiology Report Section (05/19/2014 12:00 AM CDT) 05/19/2014 Narrative HISTORICAL RESULTS - 05/23/2014 2:01 PM CDT ? [facility] ?[address] [facility] [address] ?[place], [place] [address] ? Patient Name: ??ADI NICHOLS ? Med Rec Number: [id number] ? Fin Number: ?[id number] ? Date: ?1995 ? Sex/Age: ? Male 19 years ? Admit Date: ?05/19/2014 ? Discharge Date: 05/22/2014 ? Doctor: ?MEDICINE , 1302 ? Facility: ?[facility] ? Location: ?OTHER ?* Abnormal ??A Alert ??f Footnote ??^ Corrected ??L Low ??H High ?i Interp Data ??@ Ref Lab ? Chart Type:Cumulative ?* * * * MICROBIOLOGY - MOLECULAR TESTING * * * * ?PROCEDURE: Nadine Borrego Virus (EBV) Quantitative PCR ? SOURCE: Blood ? COLLECTED: 07/19/14 ??0920 ?BODY SITE: ? STARTED: 07/21/14 ??1732 ? FREE TEXT SOURCE: ? FINAL REPORT ? REPORTED: 05/23/14 1116 ? Positive: 41,695 copies/mL. ? ORDER COMMENTS ? (1)Testing performed by: [facility], [place], ? [place]. ??[address]. ?* * * ??Interpretive Results ??* * [...] performance characteristics were determined, ? by the [facility]. ??It ? has not [...] HISTORICAL RESULTS * All Microbiology Report Section (05/19/2014 12:00 AM CDT) 05/19/2014 Narrative HISTORICAL RESULTS - 05/23/2014 10:47 AM CDT ? [facility] ?[address] [facility] ?[place] [address] ? Patient Name: ??ADI NICHOLS ? Med Rec Number: [id number] ? Fin Number: ?[id number] ? Date: ?1995 ? Sex/Age: ? Male 19 years ? Admit Date: ?05/19/2014 ? Discharge Date: 05/22/2014 ? Doctor: ?[facility] , 1302 ? Facility: ?[facility] ? Location: ?OTHER ?* Abnormal ??A Alert ??f Footnote ??^ Corrected ??L Low ??H High ?i Interp Data ??@ Ref Lab ? Chart Type:Cumulative ?* * * * MICROBIOLOGY - MOLECULAR TESTING * * * * ?PROCEDURE: Cytomegalovirus PCR, Blood ? SOURCE: Blood ? COLLECTED: 05/19/14 ??0920 ?BODY SITE: ? STARTED: 05/19/14 ??1231 ? FREE TEXT SOURCE: ? FINAL REPORT ? REPORTED: 05/20/14 1156 ? CMV DNA DETECTED (POSITIVE). ??The level of CMV DNA is below the ? level of accurate quantitation (<450 copies/mL which is ? equivalent to <870 International Units/mL). ? ORDER COMMENTS ? (1)Testing performed by: [facility], [place], ? [place]. ??[address]. ??Testing performed by: [facility], ? [place], [place]. ??[address]. ?* * * ??Interpretive Results ??* * * ? (1)This assay is based on the commercial [employer] ? quantitative real-time PCR assay employing primers that amplify ? a portion of the major immediate early gene of human ? cytomegalovirus. The assay does not amplify any of the other ? human herpes viruses or human DNA.With this assay, results will ? no longer be reported in copies/mL of blood, but rather ? International Units (IU)/mL of blood. The CMV International Unit ? was developed by the WHO and is based on a consensus ? quantitative level of a preparation of CMV DNA as tested by a ? number of reference laboratories. The adoption of the ? International Unit as a measure of reporting quantitative CMV ? results will help with the standardization of quantitative CMV ? results between laboratories employing different assays and ? should assist with the development of critical levels for the ? management of patients at risk for CMV disease.The laboratory ? will report levels of CMV IU/mL of blood as log base 10 ? transformed numbers as is the practice for other blood-borne ? viral pathogens, such as HIV and hepatitis C and B. The benefit ? of this practice is to smooth out the natural variation of the ? results produced by all quantitative PCR assays. ??Because of the ? large number of changes being made to the quantitative CMV assay, ? to assist clinicians during the transition to the new assay, ? for a period of 6 months positive patient results will be ? reported in both copies/mL and IU/mL, as well as the log base 10 ? transformed results of those values.The lower limit of detection ? of the assay is 100 IU/mL. The assay is accurate for ? quantitation in the range of 870 to 5,800,000 IU/mL (equivalent ? to 450 to 4,500,000 copies/mL), or 2.9 to 6.8 log(10) IU/mL. ? Specimens found to have detectable CMV DNA beneath the level of ? accurate quantitation are reported as CMV DNA DETECTED ? (POSITIVE): The level of CMV DNA is below the level of accurate ? quantitation. If the specimen is positive with >5,800,000 IU/mL, ? a preliminary report is issued stating CMV DNA DETECTED ? (POSITIVE): The level of CMV DNA is greater than the level of ? accurate quantitation and the specimen is subsequently retested ? after dilution in order to determine the IU/mL. Testing of 200 ? previously positive specimens with this assay revealed that ? results in IU/mL are approximately 3-4 times higher than the ? copies/mL results generated by the previous laboratory-developed ? assay. ??About 50% of this difference is due to the switch to the ? [employer] and 50% is due to the new commercial assay. ? This test was validated and its performance characteristics ? determined by [facility]. ? It has not been cleared or approved by the U.S. Food and Drug ? Administration.Current interpretive data was last revised on ? 12/26/2013. ? 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
--- OUTSIDE RECORDS SUMMARY | 2024-10-28 06:30 | XMS_ITS | Encounter Summary ---
Author Organization [facility] Facility Care Team Providers Care Kerrick Kleaner Operator Name Role Phone Unavailable Primary Care Provider Unavailabl e Encounter Details Date Type Department Care Team (Latest Contact Info) Description 04/15/2014 3:47 PM CDT - 04/16/2014 8:40 PM CDT Hospital Encounter [facility] Regine Pinto MD [address] [place] [address] Immune thrombocytopenic purpura (HCC); Liver replaced by transplant (HCC); Hypogammaglobulinemia (HCC) Social History Tobacco Use Types Packs/Day Years Used Date Smoking Tobacco: Never Assessed Sex and Gender Information Value Date Recorded Sex Assigned at Not on file Legal Sex Male 6:28 AM [employer] Gender Identity Not on file Sexual Orientation Straight 08/22/2021 9: 23 AM CDT documented as of this encounter Last Filed Vital Signs Vital Sign Reading Time Taken Comments Blood Pressure 115/63 04/16/2014 6:40 PM CDT Pulse 73 04/16/2014 6:40 PM CDT Temperature - - Respiratory Rate - - Oxygen Saturation 98% 04/16/2014 6:40 PM CDT Inhaled Oxygen Concentration - - Weight 52.6 kg (115 lb 15.7 oz) 04/15/2014 4:44 PM CDT Height 170.2 cm (5' 7 ) 04/15/2014 4:44 PM CDT Body Mass Index 18.17 04/15/2014 4:44 PM CDT documented in this encounter Medications [...] Name Priority Date/Time Associated Diagnosis Comments BLOOD CELL COUNT Routine 04/16/2014 3:57 AM CDT DISCHARGE LABORATORY CUMULATIVE REPORT Routine 04/16/2014 12:00 AM CDT PLASMA PROTHROMBIN TIME (PT) Routine 04/15/2014 5:26 PM CDT PLASMA PARTIAL THROMBOPLASTIN TIME (PTT) Routine 04/15/2014 5:26 PM CDT PLASMA HEPATIC FUNCTION PANEL Routine 04/15/2014 5:26 PM CDT PLASMA BASIC METABOLIC PANEL Routine 04/15/2014 5:26 PM CDT BLOOD CELL COUNT (CBC) Routine 4 5:26 PM CDT BLOOD ABO, RH, INDIRECT AB SCREEN Routine 04/15/2014 5:26 PM CDT BLOOD CELL MORPHOLOGIC EXAM Routine 04/15/2014 5:26 PM CDT documented in this encounter Results * (ABNORMAL) Blood cell count [CBC] express (04/16/2014 3:57 AM CDT) WBC 7.2 3.8 - 9.8 K/cumm HISTORICAL RESULTS RBC 4.30(L) 4.50 - 5.70 M/cumm HISTORICAL RESULTS Hgb 13.6(L) 13.8 - 17.2 g/dl HISTORICAL RESULTS Hct 41.0 40.7 - 50.3 % HISTORICAL RESULTS MCV 95.2 80.0 - 97.6 fl HISTORICAL RESULTS MCH 31.7 26.7 - 33.7 pg HISTORICAL RESULTS MCHC 33.3 32.7 - 35.5 g/dl HISTORICAL RESULTS Rdw 14.9(H) 11.8 - 14.6 % HISTORICAL RESULTS Platelets 40(C) 140 - 440 K/cumm HISTORICAL RESULTS Comment: Inpatient result; not critical. verified MPV 11.9(H) 6.8 - 10.4 fl HISTORICAL RESULTS Blood specimen (specimen) 04/16/2014 3:57 AM CDT us Ria Britton LAB BLOOD ORDERABLES Final Resul t HISTORICAL RESULTS * Discharge Laboratory Cumulative Report (04/16/2014 12:00 AM CDT) 04/16/2014 Narrative HISTORICAL RESULTS - 04/17/2014 3:17 AM CDT ?[facility] ?Department of Laboratories ? [address] [facility] [address] ? [place] [address] Patient Name: ??GTBRAULIOADI Med Rec Number: [id number] Fin Number: ?[id number] Date: ?1995 Sex/Age: ? Male 19 years Admit Date: ?04/15/2014 Discharge Date: 04/16/2014 Doctor: ?Regine Garcia Facility: ?[facility] Location: ?[id number] Chart Printed: 04/17/2014 03:17 ?? * Abnormal ?? C Critical ?? f Footnote ?? ^ Corrected ?? L Low ?? H High ? i Interp Data ?? @ Reference Lab ?Chart Type:Cumulative ? SELECTED ELECTROLYTES ?Test: Sodium ? Plasma Potassium ??Chloride ? Reference: [135-145] ??[3.3-4.9] ? [97-110] ? Units: mmol/L ? mmol/L ?mmol/L 04/15/2014 ?? 17:26:00 ?? 138 ?3.8 ? 104 ?Test: Total CO2 ??Anion Gap ? Reference: [22-32] ?[0-16] ? Units: mmol/L ? mmol/L 04/15/2014 ?? 17:26:00 ?? 24 ? 10 ? STANDARD BLOOD CHEMISTRY ?Test: BUN ? Creatinine ?? Total Bilirubin ? Reference: [8-25] ??[0.70-1.30] ??[0.3-1.1] ? Units: mg/dL ?? mg/dL ?mg/dL 04/15/2014 ?? 17:26:00 ?? 11 ?0.73 ? 0.3 ?Test: Bilirubin, Direct ??Glucose ?? Total Calcium ? Reference: [0.0-0.3] ?[70-199] ??[8.6-10.3] ? Units: mg/dL ?mg/dL ? mg/dL 04/15/2014 ?? 17:26:00 ?? 0.1 ?95 ?8.7 ?Test: Plasma Total Protein ??Albumin ? Reference: [6.5-8.5] ? [3.6-5.0] ? Units: g/dL ?g/dL 04/15/2014 ?? 17:26:00 ?? 7.2 ? 3.9 ?ENZYMES ?Test: Alkaline Phosphatase ??ALT ?AST ? Reference: [38-126] ?[7-53] ?? [11-47] ? Units: Units/L ? Units/L ??Units/L 04/15/2014 ?? 17:26:00 ?? 168 ??H ?37 ? 29 ? COMPLETE BLOOD COUNT ?Test: WBC ?RBC ?Hgb ? Reference: [3.8-9.8] ??[4.50-5.70] ??[13.8-17.2] ? Units: K/cumm ? M/cumm ? g/dL 04/16/2014 ?? 03:57:00 ?? 7.2 ?4.30 ??L ?13.6 ??L 04/15/2014 ?? 17:26:00 ?? 6.3 ?4.57 ? 14.5 ?Test: Hct ?Platelet Ct ??MCV ? Reference: [40.7-50.3] ??[140-440] ?[80.0-97.6] ? Units: % ?K/cumm ? fL 04/16/2014 ?? 03:57:00 ?? 41.0 ? 40 ??Cf ? 95.2 04/15/2014 ?? 17:26:00 ?? 43.9 ? 11 ??Cf ? 96.0 04/16/2014 03:57:00 ??Platelet Ct: Inpatient result; not critical. verified 04/15/2014 17:26:00 ??Platelet Ct: Critical result called to Emili KILLIAN) on 04/15/2014 18:29:13 CDT by kb. ?Test: MCH ?MCHC ? RDW ? Reference: [26.7-33.7] ??[32.7-35.5] ??[11.8-14.6] ? Units: pg ? g/dL ? % 04/16/2014 ?? 03:57:00 ?? 31.7 ? 33.3 ? 14.9 ??H 04/15/2014 ?? 17:26:00 ?? 31.7 ? 33.0 ? 15.2 ??H ?Test: MPV ? Reference: [6.8-10.4] ? Units: fL 04/16/2014 ?? 03:57:00 ?? 11.9 ??H 04/15/2014 ?? 17:26:00 ?? 12.2 ??H ? AUTOMATED WHITE CELL DIFFERENTIAL ?Test: Neut Pct Auto ??Lymph Pct Auto ??[place] Pct Auto ? Reference: [38.7-74.5] ?[20.0-54.3] ? [4.3-13.5] ? Units: % ?% ? % 04/15/2014 ?? 17:26:00 ?? 24.9 ??L ?41.8 ?30.6 ??Hf 04/15/2014 17:26:00 ??[place] Pct Auto: Result required verification by manual methods. AUTOMATED WHITE CELL DIFFERENTIAL ?Test: Eos Pct Auto ??Baso Pct Auto ??Neut Abs Auto ? Reference: [0.0-6.0] ? [0.0-3.0] ?[1.8-6.6] ? Units: % ? % ?K/cumm 04/15/2014 ?? 17:26:00 ?? 2.3 ? 0.4 ?1.6 ??L ?Test: Lymph Abs Auto ??[place] Abs Auto ??Eos Abs Auto ? Reference: [1.2-3.3] ? [0.2-1.2] ?[0.0-0.5] ? Units: K/cumm ?K/cumm ? K/cumm 04/15/2014 ?? 17:26:00 ?? 2.6 ? 1.9 ??H ? 0.1 ?Test: Baso Abs Auto ??Morph Screen ? Reference: [0.0-0.2] ? Units: K/cumm 04/15/2014 ?? 17:26:00 ?? 0.0 ?See Below 04/15/2014 ??17:26:00 ??Morph Screen ? Original results obtained required verification by alternate ? method(s). ??Refer to CBC and/or observation sections for detailed ? results. ? HEMOSTASIS AND THROMBOSIS ?Routine Coagulation Studies ?Test: PT ?INR i ?aPTT i ? Reference: [9.0-12.0] ??[0.90-1.20] ??[25.0-37.0] ? Units: sec ?sec 04/15/2014 ?? 17:26:00 ?? 11.4 ?1.08 ? 28.8 04/15/2014 17:26:00 INR: Interpretive Data Inpatient therapeutic ranges* Atrial fibrillation ?2.0-3.0 INR Venous thrombo-embolism ?2.0-3.0 INR Bioprosthetic heart valve ?* Mechanical heart valve, bileaflet or tilting disk,aortic position ? 2.0-3.0 INR All other,or bileaflet or tilting disk, in mitral position ? 2.5-3.5 INR *See the pharmacy resource directory (PHRED) for an updated copy of the Tool Book at [email or web address] Current Interpretive Data was last revised 2012. 04/15/2014 17:26:00 aPTT: Interpretive Data Therapeutic heparin range:60.0 - 94.0 sec based on correlation with therapeutic heparin activity range of 0.3 -0.7 Units/mL. Current interpretive data was last revised on 2011. ? TRANSFUSION MEDICINE ?Test: Indirect Carlo. ??ABO/Rh Pat Interp ? Reference: ? Units: 04/15/2014 ?? 17:26:00 ?? Negative ?A Positive us Historical Provider LAB BLOOD ORDERABLES Chata cuadra Result Performing Organization Address City/[facility] Co de Phone Number HISTORICAL RESULTS * Plasma partial thromboplastin time (PTT) (04/15/2014 5:26 PM CDT) APTT 28.8 25.0 - 37.0 seconds HISTORICAL RESULTS Comment: Interpretive Data Therapeutic heparin range:60.0 - 94.0 sec based on correlation with therapeutic heparin activity range of 0.3 -0.7 Units/mL. Current interpretive data was last revised on 2011. Plasma 04/15/2014 5:26 PM CDT us Ria Britton LAB BLOOD ORDERABLES Final Resul t Performing Organization Address City/State/[facility] Co de Phone Number HISTORICAL RESULTS * Plasma prothrombin time (PT) (04/15/2014 5:26 PM CDT) Prothrombin time (PT) 11.4 9.0 - 12.0 seconds HISTORICAL RESULTS INR 1.08 0.90 - 1.20 HISTORIC AL RESULTS Comment: Interpretive Data Inpatient therapeutic ranges* Atrial fibrillation ?2.0-3.0 INR Venous thrombo-embolism ?2.0-3.0 INR Bioprosthetic heart valve ?* Mechanical heart valve, bileaflet or tilting disk,aortic position ? 2.0-3.0 INR All other,or bileaflet or tilting disk, in mitral position ? 2.5-3.5 INR *See the pharmacy resource directory (PHRED) for an updated copy of the Tool Book at [email or web address] Current Interpretive Data was last revised 2012. Plasma 04/15/2014 5:26 PM CDT Ria Britton LAB BLOOD ORDERABLES Final Resul t Performing Organization Address [facility] de Phone Number HISTORICAL RESULTS * (ABNORMAL) Plasma hepatic function panel (04/15/2014 5:26 PM CDT) [facility] Protein, pl 7.2 6.5 - 8.5 g/dl HISTORICAL RESULTS Alb 3.9 3.6 - 5.0 g/dl HISTORICAL RESULTS Bilirubin 0.3 0.3 - 1.1 mg/dl HISTORICAL RESULTS Bilirubin, direct 0.1 0.0 - 0.3 mg/dl HISTORICAL RESULTS Alk phos 168(H) 38 - 126 Units/L HISTORICAL RESULTS AST 29 11 - 47 Units/L HISTORICAL RESULTS ALT 37 7 - 53 Units/L HISTORICAL RESULTS Plasma 04/15/2014 5:26 PM CDT Ria Britton LAB BLOOD ORDERABLES Final Resul t Performing Organization Address [facility] de Phone Number HISTORICAL RESULTS * Plasma basic metabolic panel (04/15/2014 5:26 PM CDT) [facility] Sodium 138 135 - 145 mmol/L HISTORICAL RESULTS K, pl 3.8 3.3 - 4.9 mmol/L HISTORICAL RESULTS Chloride 104 97 - 110 mmol/L HISTORICAL RESULTS CO2 24 22 - 32 mmol/L HISTORICAL RESULTS A. gap 10 0 - 16 mmol/L HISTORICAL RESULTS Glucose 95 70 - 199 mg/dl HISTORICAL RESULTS BUN 11 8 - 25 mg/dl HISTORICAL RESULTS Creatinine 0.73 0.70 - 1.30 mg/dl HISTORICAL RESULTS Calcium 8.7 8.6 - 10.3 mg/dl HISTORICAL RESULTS Plasma 04/15/2014 5:26 PM CDT Ria Britton LAB BLOOD ORDERABLES Final Resul t HISTORICAL RESULTS * (ABNORMAL) Blood cell count (CBC) (04/15/2014 5:26 PM CDT) RBC 4.57 4.50 - 5.70 M/cumm HISTORICAL RESULTS Hgb 14.5 13.8 - 17.2 g/dl HISTORICAL RESULTS Hct 43.9 40.7 - 50.3 % HISTORICAL RESULTS MCV 96.0 80.0 - 97.6 fl HISTORICAL RESULTS MCH 31.7 26.7 - 33.7 pg HISTORICAL RESULTS MCHC 33.0 32.7 - 35.5 g/dl HISTORICAL RESULTS Rdw 15.2(H) 11.8 - 14.6 % HISTORICAL RESULTS WBC 6.3 3.8 - 9.8 K/cumm HISTORICAL RESULTS Platelets 11(C) 140 - 440 K/cumm HISTORICAL RESULTS Comment: Critical result called to Emili EstrellaRN) on 04/15/2014 18:29:13 CDT by sarah. MPV 12.2(H) 6.8 - 10.4 fl HISTORICAL RESULTS Neutrophils 24.9(L) 38.7 - 74.5 % HISTORICAL RESULTS Lymphocytes 41.8 20.0 - 54.3 % HISTORICAL RESULTS Monos 30.6(H) 4.3 - 13.5 % HISTORICAL RESULTS Comment:{Result required ruben ification by manual methods.} Eosinophils 2.3 0.0 - 6.0 % HISTORICAL RESULTS Basophils 0.4 0.0 - 3.0 % HISTORICAL RESULTS Neutrophils, abs 1.6(L) 1.8 - 6.6 K/cumm HISTORICAL RESULTS Lymphocytes, abs 2.6 1.2 - 3.3 K/cumm HISTORICAL RESULTS Monocytes, absolute 1.9(H) 0.2 - 1.2 K/cumm HISTORICAL RESULTS Eosinophils, abs 0.1 0.0 - 0.5 K/cumm HISTORICAL RESULTS Basophils, abs 0.0 0.0 - 0.2 K/cumm HISTORICAL RESULTS Blood specimen (specimen) 04/15/2014 5:26 PM CDT Ria Britton LAB BLOOD ORDERABLES Final Resul t Performing Organization Address [facility] de Phone Number HISTORICAL RESULTS * Blood ABO, Rh, indirect ab screen (04/15/2014 5:26 PM CDT) ABO, Rho(D) A Positive HISTORI PINKY RESULTS Carol, indirect Negative HISTORICAL RESULTS Blood specimen (specimen) 04/15/2014 5:26 PM CDT Ria Britton LAB BLOOD ORDERABLES Final Resul t Performing Organization Address [facility] de Phone Number HISTORICAL RESULTS * Blood cell morphologic exam (04/15/2014 5:26 PM CDT) Morphology scrn Original results obtained required verification by alternate method(s). Refer to CBC and/or observation sections for detailed results HISTORICAL RESULTS Blood specimen (specimen) 04/15/2014 5:26 PM CDT Ria Britton LAB BLOOD ORDERABLES Final Resul t Performing Organization Address [facility] de Phone Number HISTORICAL RESULTS documented in this encounter Visit Diagnoses Diagnosis Immune thrombocytopenic purpura (HCC) Immune thrombocytopenic purpura Liver replaced by transplant (HCC) Liver replaced by transplant Hypogammaglobulinemia (HCC) Unspecified hypogammaglobulinemia documented in this encounter
== END 2024-10-21 08:12 | disposition home or self-care (01) ==
PROVIDERS: PCP Nurse Practitioner; Referring Provider Internal Medicine Gastroenterology
DX: B25.9 Cytomegaloviral disease, unspecified (principal); Z94.4 Liver transplant status
CPT/HCPCS: 36415; 87497

== ENCOUNTER 2025-04-28 07:50 | Outpatient (CLI) | payer OTHER, SELFPAY ==
[2025-04-28 09:58] LABS: Immunoglobulin G 935 mg/dL (700-1600)
[2025-05-01 14:43] LABS: CMV DNA Quant PCR IU/mL 1100 IU/mL (Not Detected); Cytomegalovirus DNA Quant PCR 3.04 Log IU/mL (Not Detected)
== END 2025-04-28 07:51 | disposition home or self-care (01) ==
PROVIDERS: PCP Internal Medicine
DX: B25.9 Cytomegaloviral disease, unspecified (principal)
CPT/HCPCS: 36415; 82784; 87497

== ENCOUNTER 2025-04-28 08:01 | Outpatient (RCR) | payer OTHER, SELFPAY ==
[2025-04-28 09:33] LABS: Hematocrit 35.7 % (42.0-52.0); Hemoglobin 12.6 g/dL (14.0-18.0); Mean Corpuscular HGB Conc 35.3 g/dl (32-36); Mean Corpuscular Hemoglobin 35.6 pg (26-34); Mean Corpuscular Volume 100.8 fl (80-100); Platelet Count Result 276 k/mm3 (150-375); Red Blood Count 3.54 M/mm3 (4.6-6.20); White Blood Count 7.7 K/mm3 (4.5-10.0)
[2025-04-28 09:54] LABS: Alanine Aminotransferase 31 U/L (6-50); Albumin Level 3.2 g/dL (3.5-5.1); Alkaline Phosphatase 270 U/L (38-126); Anion Gap 9 mmol/L (4-12); Aspartate Amino Transferase 66 U/L (17-59); Bilirubin,Total 1.7 mg/dL (0.2-1.3); Blood Urea Nitrogen 22 mg/dL (9-20); Calcium 8.5 mg/dL (8.4-10.2); Carbon Dioxide 19 mmol/L (22-30); Chloride 106 mmol/L (98-107); Estimated Glomerular Filt Rate 49; Glucose 96 mg/dL (65-110); Potassium 4.9 mmol/L (3.4-5.0); Sodium 134 mmol/L (137-145); Total Protein 6.1 g/dL (6.3-8.2)
[2025-04-29 06:43] LABS: GGT 59 U/L (3-90)
[2025-04-30 15:04] LABS: Tacrolimus Prograf. 4.6 mcg/L
== END 2025-07-27 23:59 | disposition home or self-care (01) ==
LOC: ANHLAB 08:01
PROVIDERS: PCP Internal Medicine; Visit Provider Internal Medicine Gastroenterology
DX: Z94.4 Liver transplant status (principal); Z79.899 Other long term (current) drug therapy
CPT/HCPCS: 36415; 80053; 80197; 82977; 85027